=== PATIENT | male | born 1955 | race Caucasian/White ===

== ENCOUNTER 2022-03-29 13:28 | Outpatient (CLI) | payer MEDICARE, BC, SELFPAY ==
[2022-03-29 22:24] LABS: Erythrocyte SedimentationRate* 42 mm/hr (2-15)
== END 2022-03-29 13:29 | disposition home or self-care (01) ==
LOC: NFLDUCREF 13:30
PROVIDERS: PCP Surgery; Visit Provider Family Medicine
DX: M25.422 Effusion, left elbow (principal); M25.432 Effusion, left wrist
CPT/HCPCS: 85651

== ENCOUNTER 2022-04-13 11:06 | Emergency (ER) | payer MEDICARE, BC, SELFPAY ==
[2022-04-13 11:15] VITALS: BP 140/83; PULSE 74; RESP 20; TEMP 36.8; O2SAT 98; BMI 23.6
--- NOTE | 2022-04-13 11:33 | CRLHL7_ITS ---
For Patients: As a result of the Century Cures Act, medical imaging exams and procedure reports are released immediately into your electronic medical record. You may view this report before your referring provider. If you have questions, please contact your health care provider. Indication: Chest pain Comparison: Single view chest January 04, 2021 Technique: PA and lateral views of the chest Findings: There is hyperinflation and chronic interstitial change with mildly increased interstitial markings from comparison which may represent developing edema and/or multifocal infiltrates with residual airspace opacity in the left lung base. Cardiac silhouette is mildly prominent. The bony thorax is grossly intact. Impression: Hyperinflation and chronic interstitial changes with mildly increased interstitial markings likely representing mild pulmonary vascular congestion. Questionable airspace opacification in the left lung base which may represent developing infiltrate versus parenchymal scar. Dictated by Manuel Alvarenga MD @ 04/13/2022 12:36:46 PM (Electronically Signed)
--- NOTE | 2022-04-13 11:34 | ED_ITS ---
HPI - Chest Pain General Chief Complaint: Chest Pain Stated Complaint: Chest pain when breathing in Time Seen by Provider: 04/13/22 11:09 History of Present Illness HPI narrative: This 66-year-old male comes in reporting chest pain that began last evening in became worse today. He states that the pain is relieved when sitting forward and much worse when lying back. He does not report any injury event or strenuous activity. He was at dialysis today and did complete his dialysis run but comes immediately here because of worsening pain. He denies having any nausea, vomiting, lightheadedness, or diaphoresis. He states that the pain is worse when taking a deep breath. 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 Related Data Home Medications Medication Instructions Recorded Confirmed albuterol sulfate 90 mcg/actuation 2 puff inhalation Q6H PRN 03/29/22 03/29/22 aerosol inhaler aspirin 81 mg tablet,delayed 81 mg PO QDAY 03/29/22 03/29/22 release (Adult Low Dose Aspirin) atorvastatin 10 mg tablet 10 mg PO QDAY 03/29/22 03/29/22 azelastine 137 mcg (0.1 %) nasal 1 spray intranasal BID 03/29/22 03/29/22 spray aerosol benzonatate 100 mg capsule 100 mg PO BID PRN 03/29/22 03/29/22 budesonide 0.25 mg/2 mL suspension 0.5 mg inhalation QDAY 03/29/22 03/29/22 for nebulization (Pulmicort) coenzyme Q10 100 mg capsule 100 mg PO QDAY 03/29/22 03/29/22 fluticasone fur. 200 mcg-umeclid 1 inh inhalation QDAY 03/29/22 03/29/22 62.5 mcg-vilant 25 mcg inhalat.powder (Trelegy Ellipta) ipratropium bromide 21 mcg (0.03 2 spray intranasal BID 03/29/22 03/29/22 %) nasal spray lamotrigine 200 mg tablet 200 mg PO BID 03/29/22 03/29/22 (Lamictal) levothyroxine 25 mcg capsule 25 mcg PO QDAY 03/29/22 03/29/22 loratadine 10 mg tablet 10 mg PO QDAY 03/29/22 03/29/22 montelukast 10 mg tablet 10 mg PO QDAY 03/29/22 03/29/22 (Singulair) mycophenolate mofetil 500 mg 500 mg PO Q12H 03/29/22 03/29/22 tablet (CellCept) nifedipine 30 mg tablet,extended 30 mg PO QDAY 03/29/22 03/29/22 release 24 hr (Procardia XL) ondansetron HCl 4 mg tablet 4 mg PO Q8H 03/29/22 03/29/22 prednisone 5 mg tablet 5 mg PO QDAY 03/29/22 03/29/22 sulfamethoxazole 400 1 tab PO BID 03/29/22 03/29/22 mg-trimethoprim 80 mg tablet (Bactrim) tacrolimus 0.5 mg capsule, 1.5 mg PO Q12H 03/29/22 03/29/22 immediate-release (Prograf) torsemide 10 mg tablet 10 mg PO QAM 03/29/22 03/29/22 trazodone 100 mg tablet 100 mg PO QDAY 03/29/22 03/29/22 voriconazole 200 mg tablet (Vfend) 200 mg PO Q12H 03/29/22 03/29/22 Allergies Allergy/AdvReac Type Severity Reaction Status Date / Time cefixime Allergy Intermediate Diarrhea Verified 03/29/22 12:48 quetiapine Allergy Intermediate Edema Verified 03/29/22 12:48 ciprofloxacin Allergy Unknown Verified 03/29/22 12:48 citalopram Allergy Unknown Verified 03/29/22 12:48 Review of Systems Status of ROS Reports: 10 or more systems reviewed and unremarkable except as noted in History and below Narrative Constitutional: No fevers, no weight gain or loss. Eyes: No discharge. No vision changes. HENT: No congestion, no sore throat, no ear pain. Cardiovascular: No palpitations. Chest pain as described above. Respiratory: No shortness of breath, no wheezes, no cough. Gastrointestinal: No abdominal pain, no vomiting, no diarrhea. Genitourinary: No dysuria, no hematuria. Musculoskeletal: Normal range of motion. He is wearing splint on his left wrist. Skin: No rashes, no pruritis. Neurological: No dizziness, weakness, sensory change, speech change. Endo/Heme/Allergies: No bruising or bleeding. No polydipsia. Pysch: no suicidality, no anxiety, no insomnia. All other systems reviewed and are negative. PFSH PFSH Social History Smoking Status: Never smoker How often do you have a drink containing alcohol: never AUDIT-C Alcohol total score: 0 Non-prescribed substance use: denies use Exam Narrative Exam Narrative: Constitutional: Well-developed, well-nourished, no acute distress. HEENT: Normocephalic, atraumatic. Neck: Normal range of motion. Nontender. Supple. Heart: Regular. No murmurs. Normal rate. Intact distal pulses. I do not hear a friction rub. Lungs: Clear to auscultation. No chest discomfort. No wheezes, rhonchi, or rales. Abdomen: Normal bowel sounds. Nontender. No rebound tenderness. Genitalia: Deferred. Back: No midline tenderness. Normal range of motion. Extremities: Normal range of motion. No injury. Skin: Intact. No rash. Warm. No erythema or pallor. Neurologic: No altered sensation. No weakness. Alert and oriented. Psychiatric: No suicidality. No anxiety or depression. No insomnia. Nursing notes and vitals signs are reviewed. Const Vital Signs, click to edit/add: Vital Signs - 24 hr 04/13/22 11:15 04/13/22 12:10 Temperature 98.3 F Pulse Rate [Pulse Oximeter] 74 59 L Respiratory Rate Blood Pressure [Left Upper Arm] 140/83 H Pulse Oximetry 98 97 Oxygen Delivery Method Room Air Room Air Course Vital Signs Vital signs: Initial Vital Signs Temperature 98.3 F 04/13/22 11:15 Temperature Source Temporal Artery Scan 04/13/22 11:15 Pulse Rate 74 04/13/22 11:15 Respiratory Rate 20 04/13/22 11:15 Blood Pressure 140/83 H 04/13/22 11:15 Blood Pressure Mean 102 04/13/22 11:15 Blood Pressure Position Supine 04/13/22 11:15 Pulse Oximetry 98 04/13/22 11:15 Oxygen Delivery Method 04/13/22 11:15 Vital Signs Temperature 98.3 F 04/13/22 11:15 Pulse Rate 74 04/13/22 11:15 Respiratory Rate 20 04/13/22 11:15 Blood Pressure 140/83 H 04/13/22 11:15 Pulse Oximetry 98 04/13/22 11:15 Oxygen Delivery Method 04/13/22 11:15 Temperature 98.3 F 04/13/22 11:15 Pulse Rate 59 L 04/13/22 12:10 Respiratory Rate 22 04/13/22 12:10 Blood Pressure 140/83 H 04/13/22 11:15 Pulse Oximetry 97 04/13/22 12:10 Oxygen Delivery Method 04/13/22 12:10 MDM - Chest Pain MDM Narrative Medical decision making narrative: This patient comes in with anterior chest pain that is reproduced with taking a deep breath and worse with laying back. He gets some relief with sitting forwa rd. He does not report any recent injury event or strenuous activity. He does have a chronic cough and states that he has difficulty clearing his mucus. Given the symptoms he presents with there was suspicion for costal chondritis and pericarditis. An IV was established and he received Dilaudid 0.5 mg which brought great relief to his symptoms. An EKG shows normal sinus rhythm without any signs of pericarditis. There are no diffuse ST or T-wave abnormalities. His chest x-ray appears normal without any acute findings. Other lab results also returned with reassuring findings. This is a dialysis patient so his metabolic panel has some variation but he just return from dialysis in these electrolytes and creatinine have normalized reasonably. I did also use bedside ultrasound to get images of his heart. These show no sign of fluid around the heart. There are no abnormal findings on ultrasound exam of the heart at bedside. The patient is okay to return home. He did receive a prescription for [employer] Lab Data Labs: Lab Results 04/13/22 04/13/22 04/13/22 Range/Units 11:33 11:45 11:45 WBC 10.03 (4.50-11.00) K/uL RBC 3.44 L (4.30-5.90) m/uL Hgb 11.2 L (13.5-17.5) gm/dL Hct 34.5 L (37.0-53.0) % MCV 100 (80-100) fL MCH 33 (26-34) pg MCHC 33 (32-36) gm/dL RDW Coeff of Hilda 13.1 (11.5-15.5) % Plt Count 330 (140-440) K/uL Neut % (Auto) 77.4 H (42.0-72.0) % Lymph % (Auto) 9.1 L (20-44) % [place] % (Auto) 8.9 (0.0-11.0) % Eos % (Auto) 0.8 (0.0-7.0) % Baso % (Auto) 0.1 (0.0-3.0) % Neut # (Auto) 7.80 H (1.7-7.0) K/uL Lymph # (Auto) 0.90 (0.90-2.90) K/uL [place] # (Auto) 0.90 (0.00-0.90) K/UL Eos # (Auto) 0.08 (0.00-0.50) K/uL Baso # (Auto) 0.01 (0.00-0.30) K/uL Abs Immat Gran (auto) 0.37 H (0.00-0.30) K/uL Diff Slide Review Acceptable Review (Acceptable) Sodium 133 L (135-149) mmol/L Potassium 4.7 (3.6-5.1) mmol/L Chloride 98 (96-114) mmol/L Carbon Dioxide 26 (20-32) mmol/L BUN 25 (7-30) mg/dL Creatinine 1.8 H (0.5-1.5) mg/dL Estimated Creat Clear 39.82 Estimated GFR 41 ml/min Glucose 128 H (60-115) mg/dL Calcium 9.3 (8.4-10.6) mg/dL POC Troponin I 0.02 (0.01-0.04) ng/ml ECG Data Attestation: I personally reviewed and interpreted this ECG as follows: Interpretation: Normal sinus rhythm. Rate is 63 beats per minute. There are no specific ST or T-wave abnormalities. Discharge Plan Discharge Clinical Impression: Costal chondritis Patient Disposition: Home, Self-Care Condition: Improved Instructions: Costochondritis (ED) Additional Instructions: Take medications as needed and indicated. Follow up with MD or return if worsening. Prescriptions: No Action albuterol sulfate 90 mcg/actuation HFA aerosol inhaler 2 puff inhalation Q6H PRN aspirin [Adult Low Dose Aspirin] 81 mg tablet,delayed release (DR/EC) 81 mg PO QDAY atorvastatin 10 mg tablet 10 mg PO QDAY azelastine 137 mcg (0.1 %) aerosol,spray 1 spray intranasal BID Rx Instructions: administer into each nostril benzonatate 100 mg capsule 100 mg PO BID PRN budesonide [Pulmicort] 0.25 mg/2 mL suspension for nebulization 0.5 mg inhalation QDAY coenzyme Q10 100 mg capsule 100 mg PO QDAY ipratropium bromide 21 mcg (0.03 %) spray,non-aerosol 2 spray intranasal BID Rx Instructions: administer into each nostril lamotrigine [Lamictal] 200 mg tablet 200 mg PO BID levothyroxine 25 mcg capsule 25 mcg PO QDAY loratadine 10 mg tablet 10 mg PO QDAY montelukast [Singulair] 10 mg tablet 10 mg PO QDAY mycophenolate mofetil [CellCept] 500 mg tablet 500 mg PO Q12H nifedipine [Procardia XL] 30 mg tablet extended release 24hr 30 mg PO QDAY ondansetron HCl 4 mg tablet 4 mg PO Q8H prednisone 5 mg tablet 5 mg PO QDAY tacrolimus [Prograf] 0.5 mg capsule 1.5 mg PO Q12H torsemide 10 mg tablet 10 mg PO QAM trazodone 100 mg tablet 100 mg PO QDAY Trelegy Ellipta 200-62.5-25 mcg blister with device 1 inh inhalation QDAY sulfamethoxazole-trimethoprim [Bactrim] 400-80 mg tablet 1 tab PO BID voriconazole [Vfend] 200 mg tablet 200 mg PO Q12H Rx Instructions: administer on empty stomach, at least 1 hour before or after meal(s) Follow Up/Referrals: Ryan Cole MD [Primary Care Provider] - Stand Alone Forms: [facility] Info Instructions Procedures Ultrasound Cardiac exam #1: Anatomical areas examined: parasternal long and parasternal short Indications: chest pain Exam type: limited transthoracic echocardiogram Impression: negative exam
[2022-04-13] MEDS: HYDROmorphone 0.5 mg/0.5 ml inj IVP (11:50)
[2022-04-13] MEDS: ONDANSETRON 2 MG/ML inj 4 MG IVP (11:50)
--- OUTSIDE RECORDS SUMMARY | 2022-04-13 11:51 | XMS_ITS | Clinical Summary ---
:1955 Author Organization [facility] Address [address] [place] [address] Care Team Providers Name Role Phone Elsewhere, Pcp Primary Care Provider Unavailable Source Comments Patient records contain information from all sites at [facility]. For routine questions regarding patient records, call [phone] during business hours, M-F 8:00 AM - 5:00 PM Central Time. Record requests for emergency care only can be directed to [phone] at any time.[facility] Allergies Active Allergy Reactions Severity Noted Date Comments Cefixime Diarrhea Medium 09/29/2015 Ciprofloxacin Other (see comments) Medium 07/14/2013 Tendon pain, Liver transplant Citalopram Other (see comments) High 07/14/2013 [place], Liver transplant Erythromycin Other (see comments) Low 11/04/2016 Erythromycin Base Other (see comments) Medium 05/22/2015 Du e to medications, interacts with transplant medi cations Ibuprofen Other (see comments) High 11/04/2016 PT SHOU LD NOT HAVE THIS MED R/T LIVER T RANSPLANT Olanzapine Other (see comments) High 05/22/2015 Joint p ain Quetiapine Edema, Other (see High 05/22/2015 Muscle nabil n and swelling comments) Medications Medication Sig Dispensed Refills Start Date End Date Status acetaminophen Take 1 tablet by 0 06/18/2013 Active (TYLENOL) 500 mg mouth every 6 tablet (six) hours as needed for fever. Pain. No more than 2000 mg per day. aspirin 81 mg Chew 81 mg daily. 0 09/03/2017 Active chewable tablet coenzyme Q10 (CO Take 1 capsule by 0 07/07/2017 Active Q-10) 200 mg capsule mouth daily. amoxicillin (AMOXIL) Take 4 capsules by 0 02/24/2018 Active 500 mg capsule mouth as directed. Prior to dental procedures montelukast Take 10 mg by 0 Acti ve (SINGULAIR) 10 mg mouth at bedtime. tablet loratadine Take 10 mg by 0 Activ e (CLARITIN) 10 mg mouth at bedtime. tablet ondansetron (ZOFRAN) Take 1 tablet (4 20 tablet 0 11/29/2020 Active 4 mg tablet mg total) by mouth every 8 (eight) hours as needed for nausea or vomiting. darbepoetin Inject 0.3 mL (60 1 Syringe 6 01/09/2021 Active michelle-polysorbate mcg total) under (Aranesp, in the skin once for polysorbate,) 60 1 dose. Hold if mcg/0.3 mL injection Hgb greater than 11 g/dL. Give once every 28 days. atorvastatin TAKE 1 TABLET(10 90 tablet 3 03/05/2021 Active (LIPITOR) 10 mg MG) BY MOUTH DAILY tablet benzonatate Take 100 mg by 0 01/04/2021 Ac tive (TESSALON PERLES) mouth. 100 mg capsule multivitamin renal Take 1 tablet by 30 tablet 11 05/26/202109/2021 Active failure (DIALYVITE) mouth daily with 100-1 mg tablet dinner. albuterol 90 Inhale 2 puffs 90 g 11 06/21/2021 A ctive mcg/actuation every 6 (six) inhaler hours as needed for wheezing. traZODone (DESYREL) Take 1 tablet (100 90 tablet 3 08/27/2021 08/27/2022 Active 100 mg tablet mg total) by mouth at bedtime as needed for sleep. azelastine HCl Administer 1 mg 0 Active (AZELASTINE NASAL) into nostril(s) 2 (two) times a day. Alternating sides, use with sinus rinse 2 times daily. fluticasone Administer 2 16 g 12 10/17/2021 Acti ve propionate (FLONASE) sprays into each 50 mcg/actuation nostril daily. nasal spray predniSONE Take 1 tablet (5 30 tablet 0 11/24/2021 A ctive (DELTASONE) 5 mg mg total) by mouth tablet daily. lamoTRIgine TAKE 1 TABLET BY 200 tablet 3 10/22/2021 Active (LaMICtaL) 200 mg MOUTH TWICE DAILY tablet Additional Information Patient taking differently: 200 mg 2 times daily, Reported on 12/05/2021 ketoconazole (NIZORAL) 2 % Apply 1 application 120 mL 3 Active shampoo topically 3 (three) times a week. Apply to damp skin, lather, leave on 5-10 minutes, and rinse levothyroxine (SYNTHROID, TAKE 1 TABLET(25 MCG) BY 90 tablet 3 11/27/2021 Active LEVOTHROID) 25 mcg MOUTH EVERY MORNING tabletIndications: BEFORE BREAKFAST Transplant Liver (HCC) Additional Information Patient taking differently: 25 mcg oral Daily before breakfast, Reported on 12/05/2021 ofloxacin (FLOXIN) 0.3 % Administer 5 drops 10 mL 3 2021 Active otic solutionIndications: into the right ear Chondritis Pinna Right 4 (four) times a day. isavuconazonium (CRESEMBA) Take 2 capsules 180 capsule 0 01/21 Active 186 mg capsule (372 mg total) by 022 mouth daily. sulfamethoxazole-trimethopri Take 1 tablet by 90 tablet 0 06/2021 Active m (BACTRIM,SEPTRA) 400-80 mg mouth daily. Take 022 per tablet after dialysis on dialysis days. Additional Information Patient not taking. Reported on 02/07/2022 torsemide (DEMADEX) Take 1 tablet 90 tablet 3 01/31/2022 Active 100 mg tablet (100 mg total) by mouth daily. ipratropium INHALE 2 30 mL 11 02/05/2022 Active (ATROVENT) 21 mcg SPRAYS IN EACH (0.03 %) nasal spray NOSTRIL TWICE DAILY, UP TO FIVE TIMES DAILY NEEDED NIFEdipine XL Take 20 mg by 0 10/06/2021 A ctive (PROCARDIA XL) 30 mg mouth daily. 24 hr tablet Renate-Celestine Rx 1-60-300 Take 1 tablet 0 12/11/2021 Active mg-mg-mcg tablet by mouth daily with dinner. voriconazole (VFEND) Take 200 mg by 0 Active 200 mg tablet mouth 2 (two) times a day. mycophenolate Take 2 360 capsule 3 02/15/2022 Act davin (CELLCEPT) 250 mg capsules (500 capsuleIndications: mg total) by Transplant Liver mouth 2 (two) (HCC), Infection times a day. Cytomegalovirus Do not break, (HCC), Medication cut, or open Therapy Steel Post Installer Not capsules. Anticoagulant Trelegy Ellipta INHALE 1 PUFF 60 each 3 03/04/2022 Active 200-62.5-25 mcg BY MOUTH DAILY inhaler budesonide Add 1 respule 360 mL 3 03/04/2022 Acti ve (PULMICORT) 0.5 mg/2 to 8 ounces mL nebulizer solution saline and irrigate each side of nose twice daily as directed. tacrolimus (PROGRAF) Take 2 360 capsule 3 04/02/2022 Active 0.5 mg capsules (1 mg capsuleIndications: total) by Transplant Liver mouth every 12 (HCC), Medication (twelve) Therapy Alf Not hours. Anticoagulant tacrolimus (PROGRAF) Take 1 capsule 90 capsule 3 12/27/2021/ Discontinued 0.5 mg (0.5 mg total) 2021 (Reor cinthia) capsuleIndications: by mouth Transplant Liver daily. (HCC), Medication Therapy Steel Post Installer Not Anticoagulant valGANciclovir Take 1 tablet 45 tablet 0 12/27/202103/27/ (VALCYTE) 450 mg (450 mg total) 2021 tabletIndications: by mouth every Transplant Liver other day. ([facility]), Medication take every 48 Therapy Steel Post Installer Not hours after Anticoagulant, dialysis Infection Cytomegalovirus (HCC) tacrolimus (PROGRAF) Take 1 capsule 180 capsule 3 03/15/2022 1 / Discontinued 0.5 mg (0.5 mg total) 2021 (Reor cinthia) capsuleIndications: by mouth every Transplant Liver 12 (twelve) (HCC), Medication hours. Therapy Alf Not Anticoagulant amoxicillin-pot Take 1 tablet 20 tablet 0 03/22/202204/01/ clavulanate by mouth 2 2021 (AUGMENTIN) 875-125 (two) times a mg per tablet day for 10 days. Active Problems Problem Noted Date Pneumonia Aspergillus 01/21/2022 Infection Respiratory Lower 12/10/2021 Infection Cytomegalovirus 12/10/2021 Pneumonia 10/12/2021 Personal History Of Infectious And Parasitic Disease ( COVID-19) 10/12/2021 Overview: 2020 Hyperglycemia 10/12/2021 Macrocytosis 10/12/2021 Lymphopenia 10/12/2021 Immunodeficiency Due To Drugs 07/12/2021 Colitis Cytomegalovirus 06/12/2021 Acute Bronchiolitis Due To Other Specified Organisms 1 08/13/2020 Medication Therapy Alf Not Anticoagulant 021 Chronic Failure Renal End Stage Renal Disease Dialysis Dependent 06/01/2021 Diarrhea 05/25/2021 Failure Renal 05/24/2021 Anemia 11/13/2020 Shortness Of Breath 11/13/2020 Elevated D-Dimer Uncertain Significance 11/13/2020 Hyponatremia 11/13/2020 Acute Bronchitis Due To COVID-19 11/12/2020 COVID-19 Infection 10/31/2020 Drip Post Nasal 01/31/2020 Abnormal Computed Tomography Chest 01/31/2020 Rhinosinusitis Chronic 01/31/2020 Pneumonitis Due To Inhalation Of Food And Vomit 2019 Chronic Cough 12/30/2019 Complaint Memory 02/16/2018 Spells Neurological 02/16/2018 Chronic Kidney Disease Stage 4 Glomerular Filtration R ate 15-29 09/05/2017 Chronic Kidney Disease NOS 01/02/2017 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 Chronic Kidney Disease Stage 3 Glomerular Filtration R ate 30 To 59 05/30/2015 Cirrhosis Cryptogenic 05/22/2015 Overview: Cirrhosis Cryptogenic Bipolar I Depressed Partial Remission 10/01/2013 Bipolar I Depressed Full Remission 08/11/2013 Bipolar I Disorder 07/07/2013 Hypertension And Chronic Kidney Disease Stage 5 2010 Immunodeficiency 07/31/2009 Transplant Liver 07/16/2004 Pretransplant Recipient Evaluation Exam Resolved Problems Problem Noted Date Resolved Date Chronic Obstructive Pulmonary Disease Without Exacerbation 0 10/12/2021 10/12/2021 Encounters Date Type Specialty Care Team Description Clinical Transplant Wilder, Labs Only 2 Communication Lilia Azevedo R.N., C.C.T.C. Hospital Encounter Laboratory Medicine Scott Granger ransplant Liver (HCC); 2 J PMaryanne. Medication Ther apy Alf Not Anticoagulant Clinical Transplant Sherly, Yolie Labs Only 2 Communication R, R.N. [facility]); 2 J, Miri.Marie. Medication Ther apy Steel Post Installer Not Anticoagulant Ancillary 2 Procedure Office Visit Otorhinolaryngology Jaxson Churchill s Recurrent (Primary Dx); 2 D, P.A.KelseyC., Chronic Cough; M.S., M.P.H. Drip Post Nasal ; Headache Daily Orders Only Otorhinolaryngology Óscar Ramirez 2 RSada Clinical Admitting/Central Pre-visit Intake 2 Communication Scheduling Clinical Transplant Wilder, Txp Tacrolimu s 2 Communication Lilia Azevedo R.N., Adjustment Pr otocol C.C.T.C. - Liver [facility]); 2 J, YanelyC. Medication Ther apy Alf Not Anticoagulant [facility] Testing 2 Communication Warner Ayoub M.D. Orders Orders Only Otorhinolaryngology Óscar Ramirez 2 Sada Millard Clinical Otorhinolaryngology Toro Pena Med Ref ill 2 Communication Sada Galvan (Azelastine) Refill Transplant Anastasia Will Med Refill 2 L, R.N., C.C.T.C. Clinical Orthopedic Surgery Prescheduling, 2 Communication Provider Clinical Orthopedic Surgery Prescheduling, 2 Communication Provider Hospital Encounter Radiology Trung Plasencia Pneumonia Fungal; 2 J, PMaryanne., Chronic Obstruc tive Pulmonary Disease Without Exacerbation ([facility]); M.S. Lung Interstiti al Disease ([facility]) Hospital Encounter Laboratory [facility]); 2 J, P.Murtaza.KelseyC. Medication Ther apy Steel Post Installer Not Anticoagulant Orders Only Transplant Trung Plasencia Pneumonia Funga l (Primary Dx); 2 Jennifer Stern., Chronic Obstruc tive Pulmonary Disease Without Exacerbation (HCC); M.Liam Lung Interstiti al Disease (HCC) Orders Only Otorhinolaryngology Jazmin, 2 Leonid Walker M.D. Clinical Otorhinolaryngology [place]ena Med Ref ill 2 Communication Sada Galvan (budesonide) Refill Pulmonary Medicine Odeyemi, Med Refil l 2 Simba GauthierB.S. Clinical Transplant [facility] Labs Only 2 Communication R, R.N. [facility] 2 Jennifer Stern. Medication Ther apy Alf Not Anticoagulant Clinical Transplant [facility] Labs Only 2 Communication R, R.N. Hospital [facility] 2 Jennifer Stern. Medication Ther apy Steel Post Installer Not Anticoagulant Clinical Pulmonary Medicine Odeyemi, Pulmonary Clearance 2 Communication Simba GauthierB.S. Refill Transplant [facility] Med Refill 2 R, R.N. Hospital [facility] 2 Jennifer Stern. Medication Ther apy Alf Not Anticoagulant Clinical Transplant [facility] Labs Only 2 Communication R, R.N. Office Visit Pulmonary Medicine Odeyemi, Transplan t Liver (HCC); 2 Connie Toure, Medication Ther apy Steel Post Installer Not Anticoagulant; M.B.B.S. Screening [place] Skin Cancer; Dialysis Depend ent (HCC); Screening [place] Prostate Cancer; Nodules Pulmona ry Multiple Hospital [facility] 2 Jennifer Stern. Medication Ther apy Alf Not Anticoagulant Lab General Surgery Odeyemi, Preprocedura l Lab 2 Connie Toure, Exam M.B.B.S. Refill Otorhinolaryngology Cisco Montague Refi ll 2 Patricia Gordon M.D. Clinical Transplant Anastasia Will Tacrolimus 2 Communication LLynn., Adjustment Pro tocol C.C.T.C. Liver Clinical Transplant Radha Dick, Waitlist revi ew 2 Communication Patricia Azevedo, meeting R.N., C.C.T.C. Orders Only Dialysis Elissa Wilcox P, 2 MULTIFOCAL BUTTON GRINDER, C.N.P. Hospital Encounter Laboratory Medicine Scott Granger ransplant Liver (HCC); 2 J, P.A.-C. Medication Ther apy Alf Not Anticoagulant Orders Only Critical Care Medicine Odmarge, Chron ic Obstructive 2 Connie Toure, Pulmonary Disea se M.B.B.S. Without Exacerb ation (HCC) (Primary Dx) Clinical Transplant Yolie Dubois 2 Communication R, R.N. Clinical Transplant Yolie Dubois 2 Communication R, R.N. Hospital Encounter Laboratory Medicine Scott Granger ransplant Liver (HCC); 2 J, P.A.-C. Medication Ther apy Steel Post Installer Not Anticoagulant Office Visit Transplant Trung Plasencia Pneumonia Asper gillus (HCC) (Primary Dx); 2 J, P.A.-C., Infection Cytom egalovirus (HCC); M.S. Abnormal Comput ed Tomography Chest; Transplant Live r (HCC); Medication Ther apy Alf Not Anticoagulant; Immunodeficienc y Due To Drugs (HCC) Immunization Preventive Medicine Nik Minor Immunode ficiency (HCC); 2 Angela Galvan., Ph.D. Transplant Li gerry (HCC) Hospital Encounter Radiology Trung Plasencia Transplan t Liver (HCC); 2 J, P.A.-C., Medication Ther apy Steel Post Installer Not Anticoagulant; M.S. Pneumonia Asper gillus (HCC) Lab Laboratory Medicine Trung Plasencia Bronchie ctasis ([facility]) 2 Edmundo Stern, M.S. Orders Only Transplant Trung Plasencia 2 Edmundo Stern, M.S. Orders Only Transplant Trung Plasencia 2 J, Edmundo, M.S. Clinical Transplant Yolie Dubois Labs Only 2 Communication R, R.N. Orders Only Transplant Trung Plasencia 2 Leena, Edmundo, M.S. Hospital Encounter Laboratory Medicine [facility] Gr[facility] ransplant Liver ([facility]); 2 Jennifer Stern. Medication Ther apy Alf Not Anticoagulant Nurse Only Dermatology Varun Saldivar 2 Angela Camejo., M.S. Mary Jane Cain R.NDemetrius Ancillary 2 Procedure Orders Only Dermatology Proffer, Chondritis Pinn a 2 Right Allen (Primary Dx) Sada, M.S. Clinical [facility], 2 Communication Maricel Azevedo R.N. Clinical Transplant Anastasia Will Labs Only (12/22 ) 2 Communication L R.Anais, C.C.T.C. from Last 3 Months Immunizations Name Administration Dates Next Due HepA Adult 12/25/2012 HepA, Unspecified 12/07/1998, 06/08/1998 HepB, Unspecified 12/07/1998, 07/06/1998, 06/22/1998, 06/08/1998 Influenza high dose QV(65 years or 03/05/2021, 02/11/2020 older) (PF) Influenza, Injectable, Quadrivalent 03/15/2019 Influenza, Unspecified 03/05/2021 PCV13 12/25/2012, 06/23/2009 PPSV23 04/30/2005, 08/07/1995 Pneumococcal, Unspecified 06/23/2014, 12/25/2012, 06/23/2009 , 04/30/2005, 02/05/1996 RZV (SHINGRIX) 01/06/2018, 10/03/2017 SARS-COV-2 (COVID-19) - MODERNA 01/21/2022, 07/31/2021, 01/22, 08/06/2020 Td, (Adult) Unspecified 05/11/2003 Tdap 02/19/2012 influenza vaccine quad 04/22/2018, 05/16/2009 (FLUZONE/FLUARIX) (6 months and older)(PF) Family History Medical History Relation Name Comments Coronary artery disease Father Father Heart attack Father Father Heart disease Father Father Prostate cancer Father Father Skin cancer Father Father Coronary artery disease Mother Mother Heart attack Mother Mother Heart disease Mother Mother Hypertension Mother Mother Relation Name Status Comments Father Father Mother Mother Social History Tobacco Use Types Packs/Day Years Used Date Smoking Tobacco: Never Smokeless Tobacco: Never Tobacco Cessation: Counseling Given: Not Answered Alcohol Use Standard Drinks/Week Comments No 0 (1 standard drink = 0.6 oz pure alcoho l) Alcohol Habits Answer Date Recorded How often do you have a drink containing alcohol? Never 12/15/2021 How many drinks containing alcohol do you have on a typical Not asked day when you are drinking? How often do you have six or more drinks on one occasion? Ne gerry 02/25/2019 Social Isolation Answer Date Recorded In a typical week, how many times do you More than three scott es a week 12/15/2021 talk on the phone with family, friends, or neighbors? How often do you get together with friends Twice a week 12/15/2021 or relatives? How often do you attend religious or More than 4 times per year 12/15/2021 hinduism services? Do you belong to any clubs or No 12/15/2021 organizations such as religious groups, unions, fraternal or athletic groups, or school groups? How often do you attend meetings of the Never 12/15/2021 clubs or organizations you belong to? Are you now , , , Never 12/15/2021 , never or living with a partner? Physical Activity Answer Date Recorded On average, how many days per week do you engage in moderate to 2 days 12/15/2021 strenuous exercise (like walking fast, running, jogging, dancing, swimming, biking, or other activities that cause a light or heavy sweat)? On average, how many minutes do you engage in exercise at th is 20 min 12/15/2021 level? Stress Answer Date Recorded Do you feel stress - tense, restless, nervous, or Only a lit tle 12/15/2021 anxious, or unable to sleep at night because your mind is troubled all the time - these days? Financial Resource Strain Answer Date Recorded How hard is it for you to pay for the very basics like Not h lydia at all 12/15/2021 food, housing, medical care, and heating? Intimate Partner Violence Answer Date Recorded Within the last year, have you been afraid of your partner o r No 12/15/2021 ex-partner? Within the last year, have you been humiliated or emotionall y No 12/15/2021 abused in other ways by your partner or ex-partner? Within the last year, have you been kicked, hit, slapped, or No 12/15/2021 otherwise physically hurt by your partner or ex-partner? Within the last year, have you been raped or forced to have any No 12/15/2021 kind of sexual activity by your partner or ex-partner? Food Insecurity Answer Date Recorded Within the past 12 months, you worried that your food would Never true 12/15/2021 run out before you got money to buy more. Within the past 12 months, the food you bought just didn't N ever true 12/15/2021 last and you didn't have money to get more. Transportation Needs Answer Date Recorded In the past 12 months, has lack of transportation kept you f rom No 12/15/2021 medical appointments or from getting medications? In the past 12 months, has lack of transportation kept you f rom No 12/15/2021 meetings, work, or getting things needed for daily living? Housing Stability Answer Date Recorded In the last 12 months, was there a time when you were not ab le No 12/15/2021 to pay the mortgage or rent on time? In the last 12 months, how many places have you lived? 1 12/15/2021 In the last 12 months, was there a time when you did not hav e a No 12/15/[address] sleep or slept in a care home (including now)? Education Answer Date Recorded What is the highest level of school Associate degree: jennifer eric, 12/14/2021 you have completed or the highest technical, or vocational [facility] [employer] [facility] degree you have received? 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 [address] [place] [phone] 04/25/2022 Office Visit Otorhinolaryngology Dex Matta APRN, C.N.P., M.S.N. [address] [place] [phone] 05/08/2022 Appointment Laboratory Medicine Scott Granger, Evan.A.-C. [address] [place] [phone] 05/08/2022 Clinical Admitting/Central Communication Scheduling 05/10/2022 Appointment Radiology Jeremie Rose M.D. [address] [place] [phone] 05/10/2022 Comprehensive Visit Orthopedic Surgery Warner Graves M.D. [address] [place] [phone] 05/22/2022 Appointment Laboratory Medicine Scott Granger P.A.-C. [address] [place] [phone] 06/05/2022 Appointment Laboratory Medicine Scott Granger P.A.-C. [address] [place] [phone] 06/19/2022 Appointment Laboratory Medicine Scott Granger P.A.-C. [address] [place] [phone] 07/03/2022 Appointment Laboratory Medicine Scott Granger P.A.-C. [address] [place] [phone] 07/17/2022 Appointment Laboratory Medicine Scott Granger P.A.-C. [address] [place] [phone] 07/31/2022 Appointment Laboratory Medicine Scott Granger P.A.-C. [address] [place] [phone] 08/14/2022 Appointment Laboratory Medicine Scott Granger P.A.-C. [address] [place] [phone] 08/28/2022 Appointment Laboratory Medicine Scott Granger P.A.-C. [address] [place] [phone] Health Maintenance Due Date Last Done Comments CT Colonography 1955 Cologuard 1955 Hepatitis B Vaccines (3 of 04/08/1999 12/07/1998, 9, 3 - Risk 3-dose series) 06/22/1998, Additional history exists Abdominal Ultrasound 02/21/2018 08/21/2017, 08/19/2016, 05/30/2015, Additional history exists Pneumococcal vaccine (65+ 09/14/2019 06/23/2014, 12/25/2012 , years) (4 - PPSV23 if 12/25/2012, Additional available, else PCV20) history exists Depression Screening 06/23/2021 (Annual PHQ-2) DTaP,Tdap,and Td Vaccines 02/18/2022 02/19/2012, 05/11/2003 (2 - Td or Tdap) COVID-19 Vaccine (6 - 03/18/2022 01/21/2022, 07/31/2021, Booster for Moderna series) 02/09/2021, Addition al history exists Tixagevimab-cilgavimab 06/11/2022 12/10/2021 (Evusheld) Injection Thyroid Stimulating Hormone 12/03/2022 12/03/2021, 05/24/20 21, (TSH) test for thyroid 11/27/2020, Additional function history exists Office Visit for Blood 02/07/2023 02/07/2022 Pressure Check / Re-check Creatinine Level 04/10/2023 04/10/2022, 03/27/2022, 03/20/2022, Additional history exists Fasting Glucose for 04/10/2023 04/10/2022, 03/27/2022, Diabetes Screening 03/20/2022, Additional history exists Potassium Level 04/10/2023 04/10/2022, 03/27/2022, 03/20/2022, Additional history exists Sodium Level 04/10/2023 04/10/2022, 03/27/2022, 03/20/2022, Additional history exists Colonoscopy 07/10/2026 07/10/2021, 07/10/2021, 06/06/2021, Additional history exists Colorectal Cancer 07/10/2026 Surveillance Lipid (Cholesterol) 12/03/2026 12/03/2021, 04/26/2021, Screening 11/27/2020, Additional history exists Hepatitis A Vaccines Completed 12/25/2012, 12/07/1998, 06/08/1998 Zoster Vaccines Completed 01/06/2018, 10/03/2017 Fall Risk Screen (Annual) Completed 12/10/2021 Influenza Vaccine Completed 04/08/2022, 03/05/2021, 03/05/2021, Additional history exists HPV Vaccines Aged Out No longer eligib le based on patient 's age to complete this topic Medical Devices Implanted Type Area Plastic Installer Device Shelf Model / Identifier Expiration Serial / Date Lot Stent Intro Fusion [place] 10 Fr - Banerjee [id number] Biliary [employer] Implanted: Qty: 1 on 09/24/2011 Stent Inc. Description: Device Plastic Installer - [employer]. Device Status Text - [id number]. Stent Intro Fusion [place] 10 Fr - Banerjee [id number] Biliary Stent [employer] Implanted: Qty: 1 on 12/12/2011 Description: Device Plastic Installer - [employer]. Device Status Text - [id number]. Stent Biliary 10 X 7 Cotton-[place] - Banerjee [id number] Biliary Stent [employer] Implanted: Qty: 1 on 05/26/2013 Description: Device Plastic Installer - [employer]. Device Status Text - [id number]. Conversions - Default Historical Implant Device Elbow Implant Implanted: 11/21/2016 (Quantity not on file) Description: Device Status Text - Elbow Imp. left elbow. Stent Pancreatic Johlin Wedge 8.5-22 - Banerjee [id number] Pancreatic St ent [employer] Implanted: Qty: 1 on 11/06/2011 Description: Device Plastic Installer - [employer]. Device Status Text - [id number]. Stent Pancreatic Johlin Wedge 10-22 - Banerjee [id number] Pancreatic Jorge L nt [employer] Implanted: Qty: 1 on 12/12/2011 Description: Device Plastic Installer - [employer] Medical. Device Status Text - [id number]. Stent Pancreatic Johlin Wedge 10-22 - Banerjee [id number] Pancreatic Jorge L nt [employer] Implanted: Qty: 2 on 04/08/2013 Description: Device Plastic Installer - [employer] Medical. Device Status Text - [id number]. Stent Pancreatic Johlin Wedge 10-22 - Banerjee [id number] Pancreatic Jorge L nt [employer] 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 Device Status Text - [id number]. 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 Device Status Text - [id number]. 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 Body Location - Other. n/a. Device Status Text - [id number]. Procedures Procedure Name Priority Date/Time Associated Comments Diagnosis CMV DNA DETECT/QUANT, P Routine 04/10/2022 Transplant Liver Results for 8:21 AM CDT (HCC) this Medication Therapy procedure are Steel Post Installer Not in the Anticoagulant results section. TACROLIMUS LEVEL, B Routine 04/10/2022 Transplant Liver Resu lts for 8:20 AM CDT (HCC) this Medication Therapy procedure are Alf Not in the Anticoagulant results section. GLUCOSE, FASTING, S/P Routine 04/10/2022 Transplant Liver Re sults for 8:20 AM CDT (HCC) this Medication Therapy procedure are Steel Post Installer Not in the Anticoagulant results section. COMPREHENSIVE METABOLIC Routine 04/10/2022 Transplant Liver Results for PANEL, S/P 8:20 AM CDT (HCC) this Medication Therapy procedure are Alf Not in the Anticoagulant results section. CBC WITHOUT Routine 04/10/2022 Transplant Liver Results for DIFFERENTIAL, B 8:20 AM CDT (HCC) this Medication Therapy procedure are Alf Not in the Anticoagulant results section. TACROLIMUS LEVEL, B Routine 03/27/2022 Transplant Liver Resu lts for 8:12 AM CDT (HCC) this Medication Therapy procedure are Steel Post Installer Not in the Anticoagulant results section. GLUCOSE, FASTING, S/P Routine 03/27/2022 Transplant Liver Re sults for 8:12 AM CDT (HCC) this Medication Therapy procedure are Steel Post Installer Not in the Anticoagulant results section. COMPREHENSIVE METABOLIC Routine 03/27/2022 Transplant Liver Results for PANEL, S/P 8:12 AM CDT (HCC) this Medication Therapy procedure are Alf Not in the Anticoagulant results section. CBC WITHOUT Routine 03/27/2022 Transplant Liver Results for DIFFERENTIAL, B 8:12 AM CDT (HCC) this Medication Therapy procedure are Alf Not in the Anticoagulant results section. CMV DNA DETECT/QUANT, P Routine 03/27/2022 Transplant Liver Results for 8:12 AM CDT (HCC) this Medication Therapy procedure are Steel Post Installer Not in the Anticoagulant results section. OTORHINOLARYNGOLOGY Routine 03/22/2022 Results for IMAGE EXAM 8:15 AM CDT this procedure are in the results section. BACTERIAL CULTURE, Routine 03/22/2022 Sinusitis Recurrent Re sults for AEROBIC + SUSC 8:13 AM CDT this procedure are in the results section. GLUCOSE, FASTING, S/P Routine 03/20/2022 Transplant Liver Re sults for 8:13 AM CDT (HCC) this Medication Therapy procedure are Steel Post Installer Not in the Anticoagulant results section. COMPREHENSIVE METABOLIC Routine 03/20/2022 Transplant Liver Results for PANEL, S/P 8:13 AM CDT (HCC) this Medication Therapy procedure are Alf Not in the Anticoagulant results section. CBC WITHOUT Routine 03/20/2022 Transplant Liver Results for DIFFERENTIAL, B 8:13 AM CDT (HCC) this Medication Therapy procedure are Alf Not in the Anticoagulant results section. TACROLIMUS LEVEL, B Routine 03/20/2022 Transplant Liver Resu lts for 8:12 AM CDT (HCC) this Medication Therapy procedure are Steel Post Installer Not in the Anticoagulant results section. CMV DNA DETECT/QUANT, P Routine 03/20/2022 Transplant Liver Results for 8:12 AM CDT (HCC) this Medication Therapy procedure are Alf Not in the Anticoagulant results section. CT CHEST WITHOUT IV RAD - Routine 03/13/2022 Pneumonia Fu ngal Results for CONTRAST (most 2:29 PM CDT Chronic Obstructive this inpatients and Pulmonary Disease procedur e are all Without in the outpatients) Exacerbation (HC C) results Lung Interstitial section. Disease (HCC) TACROLIMUS LEVEL, B Routine 03/13/2022 Transplant Liver Resu lts for 8:00 AM CDT (HCC) this Medication Therapy procedure are Steel Post Installer Not in the Anticoagulant results section. GLUCOSE, FASTING, S/P Routine 03/13/2022 Transplant Liver Re sults for 8:00 AM CDT (HCC) this Medication Therapy procedure are Steel Post Installer Not in the Anticoagulant results section. COMPREHENSIVE METABOLIC Routine 03/13/2022 Transplant Liver Results for PANEL, S/P 8:00 AM CDT (HCC) this Medication Therapy procedure are Alf Not in the Anticoagulant results section. CBC WITHOUT Routine 03/13/2022 Transplant Liver Results for DIFFERENTIAL, B 8:00 AM CDT (HCC) this Medication Therapy procedure are Alf Not in the Anticoagulant results section. CMV DNA DETECT/QUANT, P Routine 03/13/2022 Transplant Liver Results for 8:00 AM CDT (HCC) this Medication Therapy procedure are Steel Post Installer Not in the Anticoagulant results section. GLUCOSE, FASTING, S/P Routine 02/27/2022 Transplant Liver Re sults for 8:08 AM CDT (HCC) this Medication Therapy procedure are Alf Not in the Anticoagulant results section. TACROLIMUS LEVEL, B Routine 02/27/2022 Transplant Liver Resu lts for 8:07 AM CDT (HCC) this Medication Therapy procedure are Steel Post Installer Not in the Anticoagulant results section. COMPREHENSIVE METABOLIC Routine 02/27/2022 Transplant Liver Results for PANEL, S/P 8:07 AM CDT (HCC) this Medication Therapy procedure are Steel Post Installer Not in the Anticoagulant results section. CBC WITHOUT Routine 02/27/2022 Transplant Liver Results for DIFFERENTIAL, B 8:07 AM CDT (HCC) this Medication Therapy procedure are Steel Post Installer Not in the Anticoagulant results section. CMV DNA DETECT/QUANT, P Routine 02/27/2022 Transplant Liver Results for 8:07 AM CDT (HCC) this Medication Therapy procedure are Alf Not in the Anticoagulant results section. TACROLIMUS LEVEL, B Routine 02/20/2022 Transplant Liver Resu lts for 8:13 AM CDT (HCC) this Medication Therapy procedure are Alf Not in the Anticoagulant results section. GLUCOSE, FASTING, S/P Routine 02/20/2022 Transplant Liver Re sults for 8:13 AM CDT (HCC) this Medication Therapy procedure are Alf Not in the Anticoagulant results section. COMPREHENSIVE METABOLIC Routine 02/20/2022 Transplant Liver Results for PANEL, S/P 8:13 AM CDT (HCC) this Medication Therapy procedure are Alf Not in the Anticoagulant results section. CBC WITHOUT Routine 02/20/2022 Transplant Liver Results for DIFFERENTIAL, B 8:13 AM CDT (HCC) this Medication Therapy procedure are Alf Not in the Anticoagulant results section. CMV DNA DETECT/QUANT, P Routine 02/20/2022 Transplant Liver Results for 8:13 AM CDT (HCC) this Medication Therapy procedure are Steel Post Installer Not in the Anticoagulant results section. TACROLIMUS LEVEL, B Routine 02/13/2022 Transplant Liver Resu lts for 7:47 AM CDT (HCC) this Medication Therapy procedure are Alf Not in the Anticoagulant results section. GLUCOSE, FASTING, S/P Routine 02/13/2022 Transplant Liver Re sults for 7:47 AM CDT (HCC) this Medication Therapy procedure are Steel Post Installer Not in the Anticoagulant results section. COMPREHENSIVE METABOLIC Routine 02/13/2022 Transplant Liver Results for PANEL, S/P 7:47 AM CDT (HCC) this Medication Therapy procedure are Alf Not in the Anticoagulant results section. CBC WITHOUT Routine 02/13/2022 Transplant Liver Results for DIFFERENTIAL, B 7:47 AM CDT (HCC) this Medication Therapy procedure are Steel Post Installer Not in the Anticoagulant results section. CMV DNA DETECT/QUANT, P Routine 02/13/2022 Transplant Liver Results for 7:46 AM CDT (HCC) this Medication Therapy procedure are Alf Not in the Anticoagulant results section. PULMONARY FUNCTION TESTS Routine 02/07/2022 Chronic Obstruct davin Results for 1:23 PM CDT Pulmonary Disease this Without procedure are Exacerbation (HCC) in the results section. TACROLIMUS LEVEL, B Routine 02/06/2022 Transplant Liver Resu lts for 8:06 AM CDT (HCC) this Medication Therapy procedure are Steel Post Installer Not in the Anticoagulant results section. GLUCOSE, FASTING, S/P Routine 02/06/2022 Transplant Liver Re sults for 8:06 AM CDT (HCC) this Medication Therapy procedure are Steel Post Installer Not in the Anticoagulant results section. COMPREHENSIVE METABOLIC Routine 02/06/2022 Transplant Liver Results for PANEL, S/P 8:06 AM CDT (HCC) this Medication Therapy procedure are Alf Not in the Anticoagulant results section. CBC WITHOUT Routine 02/06/2022 Transplant Liver Results for DIFFERENTIAL, B 8:06 AM CDT (HCC) this Medication Therapy procedure are Alf Not in the Anticoagulant results section. CMV DNA DETECT/QUANT, P Routine 02/06/2022 Transplant Liver Results for 8:06 AM CDT (HCC) this Medication Therapy procedure are Steel Post Installer Not in the Anticoagulant results section. SARS CORONAVIRUS-2 RNA, Routine 02/04/2022 Preprocedural Lab Results for V 4:38 PM CDT Exam this procedure are in the results section. TACROLIMUS LEVEL, B Routine 01/30/2022 Transplant Liver Resu lts for 8:04 AM CDT (HCC) this Medication Therapy procedure are Alf Not in the Anticoagulant results section. GLUCOSE, FASTING, S/P Routine 01/30/2022 Transplant Liver Re sults for 8:04 AM CDT (HCC) this Medication Therapy procedure are Steel Post Installer Not in the Anticoagulant results section. COMPREHENSIVE METABOLIC Routine 01/30/2022 Transplant Liver Results for PANEL, S/P 8:04 AM CDT (HCC) this Medication Therapy procedure are Alf Not in the Anticoagulant results section. CBC WITHOUT Routine 01/30/2022 Transplant Liver Results for DIFFERENTIAL, B 8:04 AM CDT (HCC) this Medication Therapy procedure are Alf Not in the Anticoagulant results section. CMV DNA DETECT/QUANT, P Routine 01/30/2022 Transplant Liver Results for 8:04 AM CDT (HCC) this Medication Therapy procedure are Steel Post Installer Not in the Anticoagulant results section. TACROLIMUS LEVEL, B Routine 01/23/2022 Transplant Liver Resu lts for 8:11 AM CDT (HCC) this Medication Therapy procedure are Alf Not in the Anticoagulant results section. GLUCOSE, FASTING, S/P Routine 01/23/2022 Transplant Liver Re sults for 8:11 AM CDT (HCC) this Medication Therapy procedure are Alf Not in the Anticoagulant results section. COMPREHENSIVE METABOLIC Routine 01/23/2022 Transplant Liver Results for PANEL, S/P 8:11 AM CDT (HCC) this Medication Therapy procedure are Steel Post Installer Not in the Anticoagulant results section. CBC WITHOUT Routine 01/23/2022 Transplant Liver Results for DIFFERENTIAL, B 8:11 AM CDT (HCC) this Medication Therapy procedure are Alf Not in the Anticoagulant results section. CMV DNA DETECT/QUANT, P Routine 01/23/2022 Transplant Liver Results for 8:11 AM CDT (HCC) this Medication Therapy procedure are Alf Not in the Anticoagulant results section. CT CHEST WITHOUT IV RAD - Routine 01/21/2022 Transplant Liver Res ults for CONTRAST (most 9:26 AM CDT (HCC) this inpatients and Medication Therapy procedu re are all Alf Not in the outpatients) Anticoagulant results Pneumonia section. Aspergillus (HCC) [place] REF SUSCEPT Routine 01/21/2022 Results for MACROBROTH EA DRUG 8:58 AM CDT this procedure are in the results section. W[place] REF SUSCEPT Routine 01/21/2022 Results for MACROBROTH EA DRUG 8:58 AM CDT this procedure are in the results section. W[place] REF SUSCEPT Routine 01/21/2022 Results for MACROBROTH EA DRUG 8:58 AM CDT this procedure are in the results section. W[place] REF SUSCEPT Routine 01/21/2022 Results for MACROBROTH EA DRUG 8:58 AM CDT this procedure are in the results section. MYCOBACTERIAL CULTURE, V Routine 01/21/2022 Bronchiectasis R esults for 8:58 AM CDT ([facility]) this procedure are in the results section. ACID FAST SMEAR FOR Routine 01/21/2022 Bronchiectasis Result s for MYCOBACTERIUM 8:58 AM CDT ([facility]) this procedure are in the results section. FUNGAL CULTURE, ROUTINE Routine 01/21/2022 Bronchiectasis Re sults for 8:58 AM CDT ([facility]) this procedure are in the results section. FUNGAL SMEAR Routine 01/21/2022 Bronchiectasis Results for 8:58 AM CDT ([facility]) this procedure are in the results section. BACTERIAL CULTURE, Routine 01/21/2022 Bronchiectasis Results for AEROBIC + SUSC, RESP 8:58 AM CDT ([facility]) this procedure are in the results section. GRAM STAIN Routine 01/21/2022 Bronchiectasis Results for 8:58 AM CDT ([facility]) this procedure are in the results section. TACROLIMUS LEVEL, B Routine 01/16/2022 Transplant Liver Resu lts for 8:09 AM CDT ([facility]) this Medication Therapy procedure are Steel Post Installer Not in the Anticoagulant results section. GLUCOSE, FASTING, S/P Routine 01/16/2022 Transplant Liver Re sults for 8:09 AM CDT ([facility]) this Medication Therapy procedure are Alf Not in the Anticoagulant results section. COMPREHENSIVE METABOLIC Routine 01/16/2022 Transplant Liver Results for PANEL, S/P 8:09 AM CDT ([facility]) this Medication Therapy procedure are Alf Not in the Anticoagulant results section. CBC WITHOUT Routine 01/16/2022 Transplant Liver Results for DIFFERENTIAL, B 8:09 AM CDT ([facility]) this Medication Therapy procedure are Alf Not in the Anticoagulant results section. CMV DNA DETECT/QUANT, P Routine 01/16/2022 Transplant Liver Results for 8:09 AM CDT ([facility]) this Medication Therapy procedure are Alf Not in the Anticoagulant results section. DERMATOLOGY IMAGE EXAM Routine 01/11/2022 Resul ts for 12:00 PM CDT this procedure are in the results section. from Last 3 Months Results (ABNORMAL) CMV DNA Detect / Quant, Plasma (04/10/2022 8:21 AM CDT)Only the most recent of11 resultswithin the time period is included. [facility] gist Method Time Signature CMV DNA <35 (A) Undetected 04/11/2022 [facility] Detect/Quant, IU/mL 1:09 PM CDT P Comment: Result in log IU/mL is <1.54. CMV DNA is detected, but level present i s <35 IU/mL (<1.54 log IU/mL). This assay cannot accurately quantify CMV DNA below this level. ----ADDITIONAL INFORMATION---- The quantification range of this assay i s 35 to 10,000,000 IU/mL (1.54 log to 7.00 log IU/mL). Testing was performed u sing the tika CMV test ([employer] with the tika [id number] System. Specimen Anatomical Collection Method Collection Time Receive d Time (Source) Location / / Volume Laterality Blood (Blood, 04/10/2022 8:21 AM 04/11/20 7:06 Venous) CDT AM CDT Scott Granger P.A.-C. LAB MICROBIOLOGY - BLOOD ORD ERABLES Performing Organization Address City/State/[facility] Code Phon e Number [facility] [address] [place] [address] SU[facility] C[address] [place], [place] [id number] [place] [address] [place] (ABNORMAL) Tacrolimus, B (04/10/2022 8:20 AM CDT)Only the most recent of11 resultswithin the time period is included. athologist Signature Tacrolimus, B 1.2 (L) 5.0-15.0 04/11/2022 [facility] (Trough) 11:25 AM CDT ng/mL Comment: ----ADDITIONAL INFORMATION---- Target steady-state trough concentration s vary depending on the type of transplant, concomitant immunosuppressio n, clinical/institutional protocols, and time post-transplant. Results should be interpreted in conjunction with this clinical information and any physic al signs/symptoms of rejection/toxicity. Testing performed by Liquid Cryoocyteograp hy-Tandem Mass Spectrometry (LC-MS/MS). This test was developed and its performa nce characteristics determined by [facility] in a manner consistent with CLIA requirements. This test has not been cleared or approved by the U.S. Mer d and Drug Administration. Specimen Anatomical Collection Method Collection Time Receive d Time (Source) Location / / Volume Laterality Blood (Blood, 04/10/2022 8:20 AM 04/11/20 7:27 Venous) CDT AM CDT Scott Granger P.A.-C. LAB BLOOD NON ADD-ON Performing Organization Address City/State/ZIP Code Phon e Number [facility] [address] [place] [address] [place] [id number] [place] [address] [place] (ABNORMAL) CBC without Differential (04/10/2022 8:20 AM CDT)Only the most recent of11 resultswithin the time period is included. [facility] gist Method Time Signature Hemoglobin 9.8 (L) 13.2 - 04/10/2022 [facility] 16.6 g/dL 8:42 AM CDT Hematocrit 30.0 (L) 38.3 - 04/10/2022 [facility] 48.6 % 8:42 AM CDT Erythrocytes 3.06 (L) 4.35 - 04/10/2022 [facility] 5.65 8:42 AM CDT x10(12)/L MCV 98.0 (H) 78.2 - 04/10/2022 [facility] 97.9 fL 8:42 AM CDT RBC Distrib Width 13.0 11.8 - 04/10/2022 [facility] 14.5 % 8:42 AM CDT Platelet Count 314 135 - 317 04/10/2022 [facility] x10(9)/L 8:42 AM CDT Leukocytes 10.6 (H) 3.4 - 9.6 04/10/2022 [facility] x10(9)/L 8:42 AM CDT Specimen Anatomical Collection Method Collection Time Receive d Time (Source) Location / / Volume Laterality Blood (Blood, 04/10/2022 8:20 AM 04/10/20 8:22 Venous) CDT AM CDT Scott Granger P.A.-C. LAB BLOOD ADD-ON Performing Organization Address [facility] Phon e Number [address] [address] [place] [address] [address] (ABNORMAL) Glucose, Fasting (04/10/2022 8:20 AM CDT)Only the most recent of11 resultswithin the time period is included. P athologist Signature Glucose, P 119 (H) 70 - 100 04/10/2022 [facility] mg/dL 8:41 AM CDT Last Intake 11 hr 04/10/2022 [facility] 8:22 AM CDT Specimen Anatomical Collection Method Collection Time Receive d Time (Source) Location / / Volume Laterality Blood (Blood, 04/10/2022 8:20 AM 04/10/20 8:22 Venous) CDT AM CDT Scott Granger P.A.-C. LAB BLOOD NON ADD-ON Performing Organization Address City/[facility]/ZIP Code Phon e Number [address] [address] [place] [address] [address] (ABNORMAL) Comprehensive Metabolic Panel (04/10/2022 8:20 AM CDT)Only the most recent of11 resultswithin the time period is included. Analysis Performed At Patho logist Time Signature Potassium, P 3.8 3.6 - 5.2 04/10/2022 [facility] mmol/L 8:45 AM CDT Sodium, P 133 (L) 135 - 145 04/10/2022 [facility] mmol/L 8:45 AM CDT Chloride, P 96 (L) 98 - 107 04/10/2022 [facility] mmol/L 8:45 AM CDT Bicarbonate, P 22 22 - 29 04/10/2022 [facility] mmol/L 8:45 AM CDT Anion Gap, P 15 7 - 15 04/10/2022 [facility] 8:45 AM CDT BUN (Blood Urea 54 (H) 8 - 24 04/10/2022 [facility] Nitrogen), P mg/dL 8:45 AM CDT Creatinine 3.03 (H) 0.74 - 04/10/2022 [facility] 1.35 mg/dL 8:45 AM CDT Estimated GFR 22 (L) >=60 04/10/2022 [facility] (eGFR) mL/min/BSA 8:45 AM CDT Comment: Estimated GFR calculated using the 2020 CKD_EPI creatinine equation. Calcium, Total, P 9.2 8.8 - 10.2 mg/dL 04/10/2022 8:45 AM CDT [facility] Glucose, P CANCELED mg/dL 04/10/2022 8:22 AM CDT [facility] Comment: Duplicate test request. Result canceled by the ancillary. Protein, Total, P 6.6 6.3 - 7.9 g/dL 04/10/2022 8:45 A M CDT [facility] Albumin, P 4.1 3.5 - 5.0 g/dL 04/10/2022 8:45 AM CDT C NFL Aspartate Aminotransferase (AST), 17 8 - 48 U/L 04/10 8:45 AM CDT [facility] P Alkaline Phosphatase, P 126 40 - 129 U/L 04/10/2022 8: 45 AM CDT [facility] Alanine Aminotransferase (ALT), P 14 7 - 55 U/L 04/10 8:45 AM CDT [facility] Bilirubin, Total, P 0.3 <=1.2 mg/dL 04/10/2022 8:45 AM CDT [facility] Specimen Anatomical Collection Method Collection Time Receive d Time (Source) Location / / Volume Laterality Blood (Blood, 04/10/2022 8:20 AM 04/10/20 8:22 Venous) CDT AM CDT Scott Granger P.A.-C. LAB BLOOD ADD-ON Performing Organization Address City/State/ZIP Code Phon e Number [facility]- [address] [place] [address] [place] [address] Direct Laryngoscope-Otorhinolaryngology Image Exam (03/22/2022 8:15 AM CDT) Specimen (Source) Anatomical Collection Method Collection Time Re ceived Time Location / / Volume Laterality 03/22/2022 8:11 AM CDT Narrative II - 03/22/2022 8:17 AM CDT This order has been created and auto-finalized to support the import of images acquired without order. The clini adelfo documentation to support these images can be found on the encounter ana t produced images. Provider Not In System IMG NON RAD IMAGING PROCEDUR ES Performing Organization Address City/State/ZIP Code Phon e Number [facility] NA (ABNORMAL) Bacterial Culture, Aerobic + Susc (03/22/2022 8:13 AM CDT) Component Value Ref Test Analysis Performed At [facility] gist Range Method Time Signature Bacterial STAPHYLOCOCCUS AUREUS 03/25/2022 DTL Culture, 3+ 1:31 PM CDT Aerobic + (A) Susc Specimen Anatomical Collection Method Collection Time Receive d Time (Source) Location / / Volume Laterality Swab (Paranasal 03/22/2022 8:13 AM 2021 9:24 Sinus, Ethmoid CDT AM CDT Right) Comment: Specimen Source Site: Swab Organism Antibiotic Method Susceptibility Staphylococcus aureus Oxacillin SUSCEPTIBILITY, DAVID (MCG/M L) 0.5 mcg/mL: Susceptible Comment: Use oxacillin interpretation to predict results for anti-staphylococcal beta-lac ramey antibiotics (except ceftaroline). Staphylococcus aureus Vancomycin SUSCEPTIBILITY, DAVID 1 mcg/ mL: Susceptible (MCG/ML) Staphylococcus aureus Clindamycin SUSCEPTIBILITY, DAVID >2 mcg /mL: Resistant (MCG/ML) Staphylococcus aureus Levofloxacin SUSCEPTIBILITY, DAVID <=0.5 mcg/mL: (MCG/ML) Susceptible Comment: Fluoroquinolones have a limi onel role in treatment of staphylococcal infections; c onsult Infectious Diseases if considering usage. Staphylococcus aureus Trimethoprim + SUSCEPTIBILITY, DAVID <=0.5/ 9.5 mcg/mL: Sulfamethoxazole (MCG/ML) Susceptible Staphylococcus aureus Minocycline SUSCEPTIBILITY, DAVID <=4 mc g/mL: (MCG/ML) Susceptible Staphylococcus aureus Rifampin SUSCEPTIBILITY, DAVID <=0.5 mcg/mL: (MCG/ML) Susceptible Comment: Rifampin should not be used as monotherapy Staphylococcus aureus Doxycycline SUSCEPTIBILITY, DAVID (MCG/M L) <=4 mcg/mL: Susceptible Jaxson Churchill P.A.-C., M.S., M.P.H. LAB MICROBIOLOGY - GENERAL ORDERABLES Performing Organization Address City/State/ZIP Code Phon e Number [facility] - [address] [place], [place] [address] [facility] D[facility] [place], [place] [id number] [facility] [address] Chest without IV Contrast (03/13/2022 2:29 PM CDT)Only the most recent of2 resultswithin the time period is included. Anatomical Region Laterality Modality Chest, Thoracic RST LOS, Thoracic ARZ N/A Co mputed Tomography, Computed LOS, Thoracic FLA LOS Tomography Specimen (Source) Anatomical Collection Method Collection Time Re ceived Time Location / / Volume Laterality 03/13/2022 4:18 PM CDT Impressions 03/13/2022 4:28 PM CDT 1. Overall no significant change in the diffuse infectious/inflammatory bronchitis and bronchiolitis. 2. Additional findings are detailed in t he body of the report. Narrative 03/13/2022 4:28 PM CDT EXAM: CT CHEST WITHOUT IV CONTRAST COMPARISON: Multiple chest CTs from 2019 to 01/21/2022 ?? FINDINGS: While left upper lobe nodularities have decreased, left lower lobe and right lung nodularities and mucus plugging have slightly increased. Similar diffuse bronchial wall thickening. No pleural effusion or thickening identified. Shotty subcentimeter nodes without thora cic adenopathy by size criteria. Mild aortic and severe coronary artery c alcifications are again identified. Diffuse dilatation of the pulmonary arteries with the main pul monary artery measuring 3.2 cm at the level of its bifurcation on series 3 image 307, could be seen in pulmonary arterial hypertension. Small sliding esophageal hiatal hernia i s again identified. 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 Hypodense and hyperdense renal lesions a re presumably cysts. 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 Status post cholecystectomy. Similar generous size spleen. Similar pancreatic tail cystic lesion centered on series 3 image 633. Mild spinal degenerative changes are aga in identified. Healed right clavicular and rib fractures. Similar left humeral head sclerotic focu s, presumably bone island. No aggressive osseous lesions identified. Thank you for the consultation. 3D maximum intensity projection (MIP) im ages were created on a dependent workstation as ordered by the treating provider and reviewed by norma toure radiologist to increase sensitivity for detection of pulmonary nodules. Procedure Note Raphael Vazquez M.D. - 09/21/2022Formattin g of this note might be different from the original. EXAM: CT CHEST WITHOUT IV CONTRAST COMPARISON: Multiple chest CTs from 2019 to 01/21/2022 FINDINGS: While left upper lobe nodularities have decreased, left lower lobe and right lung nodularities and mucus plugging have slightly increased. Similar diffuse bronchial wall thickening. No pleural effusion or thickening identified. Shotty subcentimeter nodes without thora cic adenopathy by size criteria. Mild aortic and severe coronary artery c alcifications are again identified. Diffuse dilatation of the pulmonary arteries with the main pul monary artery measuring 3.2 cm at the level of its bifurcation on series 3 image 307, could be seen in pulmonary arterial hypertension. Small sliding esophageal hiatal hernia i s again identified. 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 Hypodense and hyperdense renal lesions a re presumably cysts. 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 Status post cholecystectomy. Similar generous size spleen. Similar pancreatic tail cystic lesion centered on series 3 image 633. Mild spinal degenerative changes are aga in identified. Healed right clavicular and rib fractures. Similar left humeral head sclerotic focu s, presumably bone island. No aggressive osseous lesions identified. Thank you for the consultation. 3D maximum intensity projection (MIP) im ages were created on a dependent workstation as ordered by the treating provider and reviewed by e radiologist to increase sensitivity for detection of pulmonary nodules. IMPRESSION: 1. Overall no significant change in the diffuse infectious/inflammatory bronchitis and bronchiolitis. 2. Additional findings are detailed in t he body of the report. Trung Plasencia P.A.-C., M.S. IMG CT PROCEDURES Pulmonary Function Tests (02/07/2022 1:23 PM CDT) athologist Signature VC MAX PRE 3.08 L 02/07/2022 [facility] 2:36 PM CDT SUITE FVC 3.08 L 02/07/2022 [facility] 2:36 PM CDT SUITE FEV1 1.66 L 02/07/2022 [facility] 2:36 PM CDT SUITE FEV1/FVC 54.03 % 02/07/2022 [facility] 2:36 PM CDT SUITE [id number]% 0.79 L/s 02/07/2022 [facility] 2:36 PM CDT SUITE PEF PRE 5.42 L/s 02/07/2022 [facility] 2:36 PM CDT SUITE FET PRE 13.93 sec 02/07/2022 [facility] 2:36 PM CDT SUITE DLCO 17.81 ml/(min*mm 02/07/2022 [facility] Hg) 2:36 PM CDT SUITE DLCOc 19.62 ml/(min*mm 02/07/2022 [facility] Hg) 2:36 PM CDT SUITE HB 11.70 g(Hb)/dL 02/07/2022 [facility] 2:36 PM CDT SUITE VA 4.77 L 02/07/2022 [facility] 2:36 PM CDT SUITE [id number] 96.00 % 02/07/2022 [facility] 2:36 PM CDT SUITE PulseRest 96.00 1/min 02/07/2022 [facility] 2:36 PM CDT SUITE [id number] 93.00 % 02/07/2022 [facility] 2:36 PM CDT SUITE PulseExer 116.00 1/min 02/07/2022 [facility] 2:36 PM CDT SUITE EXER TIME 3.00 min 02/07/2022 [facility] 2:36 PM CDT SUITE STEP HEIGHT 9.00 Inch 02/07/2022 [facility] PRE 2:36 PM CDT SUITE TLC 6.90 L 02/07/2022 [facility] 2:36 PM CDT SUITE VC PRE 3.06 L 02/07/2022 [facility] 2:36 PM CDT SUITE FRCPLETH 4.67 L 02/07/2022 [facility] 2:36 PM CDT SUITE RV 3.84 L 02/07/2022 [facility] 2:36 PM CDT SUITE RV % TLC PRE 55.68 % 02/07/2022 [facility] 2:36 PM CDT SUITE TLC% 101 % % 02/07/2022 [facility] 2:36 PM CDT SUITE % PRED RV 164 % % 02/07/2022 [facility] 2:36 PM CDT SUITE % PRED VC MAX 74 % % 02/07/2022 [facility] 2:36 PM CDT SUITE FVC% 74 % % 02/07/2022 [facility] 2:36 PM CDT SUITE FEV1% 52 % % 02/07/2022 [facility] 2:36 PM CDT SUITE % PRED 71 % % 02/07/2022 [facility] FEV1/FVC 2:36 PM CDT SUITE % PRED FEF 32 % % 02/07/2022 [facility] 25-75% 2:36 PM CDT SUITE % PRED PEF 67 % % 02/07/2022 [facility] 2:36 PM CDT SUITE DLCO% 70 % % 02/07/2022 [facility] 2:36 PM CDT SUITE DLCOc% 78 % % 02/07/2022 [facility] 2:36 PM CDT SUITE PRED TLC 6.85 02/07/2022 [facility] 2:36 PM CDT SUITE PRED RV 2.34 02/07/2022 [facility] 2:36 PM CDT SUITE PRED VC MAX 4.15 02/07/2022 [facility] 2:36 PM CDT SUITE PRED FVC 4.15 02/07/2022 [facility] 2:36 PM CDT SUITE PRED FEV 1 3.17 02/07/2022 [facility] 2:36 PM CDT SUITE PRED FEV1/FVC 76.6 02/07/2022 [facility] 2:36 PM CDT SUITE PRED FEF 2.49 02/07/2022 [facility] 25-75% 2:36 PM CDT SUITE PRED PEF 8.0 02/07/2022 [facility] 2:36 PM CDT SUITE PRED DLCO 25.3 02/07/2022 [facility] 2:36 PM CDT SU[address] PRED DLCOc 25.3 02/07/2022 [facility] 2:36 PM CDT SUITE Specimen (Source) Anatomical Collection Method Collection Time Re ceived Time Location / / Volume Laterality 02/07/2022 1:23 PM CDT Impressions [facility] SUITE - 02/07/2022 2:36 PM C DT Abnormal. Moderate obstruction and air t rapping. Diffusing capacity adjusted for hemoglobin is normal. Pulse oximetry is normal at rest and during exercise. Compared to 08/31/2020, FEV1 and TLC have declined . Narrative This result has an attachment that is no t available. Procedure Note Trevor Barton M.D. - 2021 IMPRESSION: Abnormal. Moderate obstruction and air t rapping. Diffusing capacity adjusted for hemoglobin is normal. Pulse oximetry is normal at rest and during exercise. Compared to 08/31/2020, FEV1 and TLC have declined. Connie RocaSDemetrius PFT ORDERABLES Performing Organization Address [facility] Phon e Number [facility] SUITE [facility] SUITE NA SARS Coronavirus-2 RNA, V Asymptomatic (02/04/2022 4:38 PM CDT) [facility] Method Time Signature SARS-CoV-2 Swab, 02/05/2022 [facility] Specimen Nasopharynx 2:30 PM CDT Source SARS CoV-2 Undetected Undetected 02/05/2022 [facility] RNA, TMA 2:30 PM CDT Comment: SARS-CoV-2 RNA absent. This result does not rule out COVID-19 in the patient, as the sensitivity of the test depends o n the timing of the specimen collection and the quality of the specim en. Result should be correlated with patient's history and clinical presentat ion. ----ADDITIONAL INFORMATION---- This molecular amplification test was pe rformed using the Aptima SARS-CoV-2 assay ([employer] on the [employer] ABS[employer] tem under emergency use authorization (EUA) by the U.S. Food and Drug Administ ration. Fact sheets for this EUA assay can be fo und at the following links: For Healthcare Providers: https://www.fd a.gov/media/730834/download For Patients: https://www.fda.gov/media/ 158393/download Specimen Anatomical Collection Method Collection Time Receive d Time (Source) Location / / Volume Laterality Varies 02/04/2022 4:38 PM 4:55 (Nasopharynx) CDT AM CDT Connie RocaSDemetrius LAB MICROBIOLOGY - GENERAL ORDERABLES Performing Organization Address City/[facility] Phon e Number [facility]- [address] [place] [id number] [place] [address] [address] [facility] [place] [facility] Ant Test (01/21/2022 8:58 AM CDT) P athologist Signature Test Name Itraconazole 02/07/2022 [facility] 8:24 AM CDT Result See Below 02/13/2022 [facility] 2:31 PM CDT Comment: Antifungal Susceptibility Testing Source: Sputum Species ID Provided: Fusarium sp. Result Name ?Result ?Flag ? Units ? Itraconazole (ITRA) ? >16 ? mcg/mL ? Interpretation ? No Established Breakpoints Specimen Anatomical Collection Method Collection Time Receive d Time (Source) Location / / Volume Laterality Varies 01/21/2022 8:58 AM 8:24 CDT AM CDT Trung Plasencia P.A.-C. MThomas LAB [facility] ORDERABLES Performing Organization Address City/State/ZIP Code Phon e Number [facility] [address] [place], [place] [phone] [place] Department [place] [address] [place] [id number] [facility] Dept of Path-Fungus Lab [facility] Referral Test 1 (01/21/2022 8:58 AM CDT) P athologist Signature Test Name Caspofungin 02/07/2022 MIS 8:24 AM CDT Result See Below 02/13/2022 M[facility] 2:31 PM CDT Comment: Antifungal Susceptibility Testing Source: Sputum Species ID Provided: Fusarium sp. Result Name ?Result ?Flag ? Units ? Caspofungin (ALESSANDRA) ? >8 ?mcg/mL ? Interpretation ? No Established Breakpoints Test Performed By: [address] Department of Pathology [place], [place] ??[phone] Specimen Anatomical Collection Method Collection Time Receive d Time (Source) Location / / Volume Laterality Varies 01/21/2022 8:58 AM 2 8:24 CDT AM CDT Trung Plasencia P.A.-C., M.S. LAB MISC ORDERABLES Performing Organization Address City/[facility]/ZIP Code Phon e Number MISC REFERRAL LAB MISC Voriconazole - Sent Out Lab (01/21/2022 8:58 AM CDT) Component Value Ref Test Analysis Performed At [facility] Range Method Time Signature Source Sputum, Sputum 02/13/2022 [facility] 2:31 PM CDT Received as Fusarium sp. 02/13/2022 [facility] (Organism) 2:31 PM CDT Result 8 ug/mL 02/13/2022 [facility] 2:31 PM CDT Interpretation No Established 02/13/2022 [facility] Breakpoints 2:31 PM CDT Specimen Anatomical Collection Method Collection Time Receive d Time (Source) Location / / Volume Laterality Varies 01/21/2022 8:58 AM 2 8:24 CDT AM CDT Trung Plasencia P.A.-C., M.S. LAB MICROBIOLOGY - GENERAL ORDERABLES Performing Organization Address City/[facility]/ZIP Code Phon e Number [address] [phone] [place] Department Of [place] [address] Dept of Path-Fungus Lab Posaconazole - Sent Out Lab (01/21/2022 8:58 AM CDT) Component Value Ref Test Analysis Performed At [facility] [employer] Range Method Time Signature Source Sputum, Sputum 02/13/2022 [facility] 2:31 PM CDT Received as Fusarium sp. 02/13/2022 [facility] (Organism) 2:31 PM CDT Result >16 ug/mL 02/13/2022 [facility] 2:31 PM CDT Interpretation No Established 02/13/2022 [facility] Breakpoints 2:31 PM CDT Specimen Anatomical Collection Method Collection Time Receive d Time (Source) Location / / Volume Laterality Varies 01/21/2022 8:58 AM 8:24 CDT AM CDT Trung Plasencia P.A.-C. MDemetriusS. LAB MICROBIOLOGY - GENERAL ORDERABLES Performing Organization Address City/State/ZIP Code Phon e Number [facility] [address] [place], [place] [phone] [place] Department Of Path[place] [address] Dept of Path-Fungus Lab (ABNORMAL) Bacterial Culture, Aerobic + Susc, Resp (01/21/2022 8:58 AM CDT) Patholo gist Method Time Signature Bacterial With upper 01/25/2022 DTL Culture, respiratory/or 1:50 PM CDT Aerobic, Resp al microbiota (A) Bacterial SERRATIA MARCESCENS 01/25/2022 DTL Culture, 4+ 1:50 PM CDT Aerobic, Resp (A) Comment: Serratia marcescens, S. nematodiphila an d S. ureilytica may be difficult to distin guish from one another. This organism may contain an inducible b eta-lactamase. Second- or third-generation cephalospori n monotherapy may result in the emergence of high-level resistance. Preferred empiric therapy, p ending antimicrobial susceptibility results, is cefepime, a f luoroquinolone, or a carbapenem, unless clinically contr aindicated. Specimen Anatomical Collection Method Collection Time Receive d Time (Source) Location / / Volume Laterality Sputum (Sputum) 01/21/2022 8:58 AM 2021 9:57 CDT AM CDT Comment: Specimen Source Site: Sputum Organism Antibiotic Method Susceptibility Serratia marcescens Ampicillin SUSCEPTIBILITY, >16 mcg/mL: Resistant DAVID (MCG/ML) Serratia marcescens Ampicillin + Sulbactam SUSCEPTIBILITY, >16/8 mcg/mL: Resistant DAVID (MCG/ML) Serratia marcescens Meropenem SUSCEPTIBILITY, <=0.12 mcg/m L: DAVID (MCG/ML) Susceptible Serratia marcescens Ertapenem SUSCEPTIBILITY, <=0.25 mcg/m L: DAVID (MCG/ML) Susceptible Serratia marcescens Piperacillin + Tazobactam SUSCEPTIBILITY, <= 8/4 mcg/mL: DAVID (MCG/ML) Susceptible Serratia marcescens Ciprofloxacin SUSCEPTIBILITY, 2 mcg/mL: Re sistant DAVID (MCG/ML) Serratia marcescens Levofloxacin SUSCEPTIBILITY, 2 mcg/mL: Re sistant DAVID (MCG/ML) Serratia marcescens Cefazolin SUSCEPTIBILITY, >16 mcg/mL: Resistant DAVID (MCG/ML) Serratia marcescens Ceftriaxone SUSCEPTIBILITY, <=1 mcg/mL: Susceptible DAVID (MCG/ML) Serratia marcescens Ceftazidime SUSCEPTIBILITY, <=4 mcg/mL: Susceptible DAVID (MCG/ML) Serratia marcescens Cefepime SUSCEPTIBILITY, <=2 mcg/mL: Susceptible DAVID (MCG/ML) Serratia marcescens Amikacin SUSCEPTIBILITY, <=8 mcg/mL: Susceptible DAVID (MCG/ML) Serratia marcescens Gentamicin SUSCEPTIBILITY, <=1 mcg/mL: Susceptible DAVID (MCG/ML) Serratia marcescens Tobramycin SUSCEPTIBILITY, <=1 mcg/mL: Susceptible DAVID (MCG/ML) Serratia marcescens Aztreonam SUSCEPTIBILITY, <=4 mcg/mL: Susceptible DAVID (MCG/ML) Serratia marcescens Trimethoprim + SUSCEPTIBILITY, 2/38 mcg/mL: Sulfamethoxazole DAVID (MCG/ML) Susceptible Trung Plasencia P.A.-C., M.S. LAB MICROBIOLOGY - GENERAL ORDERABLES Performing Organization Address City/State/ZIP Code Phon e Number [facility] - [address] [place] [phone] [facility] [place] [address] [facility] [address] [facility] Mycobacterial Culture (01/21/2022 8:58 AM CDT) [facility] Method Time Signature Mycobacterial No growth 03/04/2022 DTL Culture after 42 1:01 PM CDT days of incubation . Specimen Anatomical Collection Method Collection Time Receive d Time (Source) Location / / Volume Laterality Sputum (Sputum) 01/21/2022 8:58 AM 2021 9:57 CDT AM CDT Comment: Specimen Source Site: Sputum Trung Plasencia P.A.-C. M.S. LAB MICROBIOLOGY - GENERAL ORDERABLES Performing Organization Address [facility] Phon e Number [facility] - [address] [facility] Fungal Smear (01/21/2022 8:58 AM CDT) P athologist Signature Fungal Smear Negative. 01/21/2022 DTL 1:38 PM CDT Specimen Anatomical Collection Method Collection Time Receive d Time (Source) Location / / Volume Laterality Sputum (Sputum) 01/21/2022 8:58 AM 2021 9:57 CDT AM CDT Comment: Specimen Source Site: Sputum Trung Plasencia P.A.-C. M.S. LAB MICROBIOLOGY - GENERAL ORDERABLES Performing Organization Address [facility] Phon e Number [facility] - [address] [place] [phone] Acid Fast Smear For Mycobacterium (01/21/2022 8:58 AM CDT) Patholo gist Method Time Signature Acid Fast Smear Negative. 01/21/2022 DTL For Mycobacterium 10:33 PM CDT Specimen Anatomical Collection Method Collection Time Receive d Time (Source) Location / / Volume Laterality Sputum (Sputum) 01/21/2022 8:58 AM 2021 9:57 CDT AM CDT Comment: Specimen Source Site: Sputum Trung Plasencia P.A.-C. M.S. LAB MICROBIOLOGY - GENERAL ORDERABLES Performing Organization Address City/[facility] Phon e Number [facility] - [address] [place] [phone] Gram Stain (01/21/2022 8:58 AM CDT) Patholo gist Method Time Signature Gram Stain Upper respiratory/oral microbiota 01/21 DTL White blood cells, Many. 10:58 AM CDT Epithelial cells, Few. Specimen Anatomical Collection Method Collection Time Receive d Time (Source) Location / / Volume Laterality Sputum (Sputum) 01/21/2022 8:58 AM 2021 9:57 CDT AM CDT Comment: Specimen Source Site: Sputum Trung Plasencia P.A.-C. M.S. LAB MICROBIOLOGY - GENERAL ORDERABLES Performing Organization Address City/[facility]/ZIP [facility] Phon e Number [facility] - [address] [place], [place] [address] [place] [address] (ABNORMAL) Fungal Culture, Routine (01/21/2022 8:58 AM CDT) [facility] gist Method Time Signature Fungal Mixed Fungal 02/14/2022 DT Culture, Alfreda (A) 8:29 AM CDT Routine Fungal FUSARIUM sp 02/14/2022 DT Culture, Few 8:29 AM CDT Routine (A) Comment: Susceptibility testing is not indicated for all molds. Infectious Diseases consult is required to order mold susceptibility testing. Fungal Culture, Routine SAPROPHYTIC FUNGUS 022 8:29 AM CDT DT Few (A) Comment: Not further identified. Susceptibility testing is not indicated for all molds. Infectious Diseases consult is required to order mold susceptibility testing. Specimen Anatomical Collection Method Collection Time Receive d Time (Source) Location / / Volume Laterality Sputum (Sputum) 01/21/2022 8:58 AM 2021 9:57 CDT AM CDT Comment: Specimen Source Site: Sputum Trung Plasencia P.A.-C., M.S. LAB MICROBIOLOGY - GENERAL ORDERABLES Performing Organization Address City/[facility] Code Phon e Number [facility] - [address] [place], [place] [address] [place] [address] ear, right conchal bowl 124 Mohs micrographic surgery-Dermatology Image Exam (01/11/2022 12:00 PM CDT) Specimen (Source) Anatomical Location Collection Method / Collectio n Time Received Time / Laterality Volume Narrative IIMS - 01/11/2022 4:18 PM CDT This order has been created and auto-finalized to support the import of images acquired without order. The clini adelfo documentation to support these images can be found on the encounter ana t produced images. Provider Not In System IMG NON RAD IMAGING PROCEDUR ES Performing Organization Address City/State/ZIP Code Phon e Number I[facility] IIMS NA from Last 3 Months Insurance Payer Benefit Plan Subscriber ID Effective Phone Address Typ e / Group Dates MEDICARE MEDICARE A [id number] 2015-Pres [address] [place] [address] [employer] [place] [id number] 2017-Pres [phone] [address] X Cost Share BLUE [employer]IELD BLUE COST ent [phone] [place] [address] (Work) [phone] Advance Directives For more information, please contact: [phone] Documents on File Type Date Recorded Patient Group Controller Explanati on Advance Directives 09/29/2019 11:22 AM POA for Hemurtaza lthcare Latest Code Status on File Code Status Date Activated Date Inactivated Comments Full Code 10/12/2021 5:47 PM 10/16/2021 7:14 PM Question Answer Comments Full Code: Discussed Code Status History Code Status Date Activated Date Inactivated Comments Full Code 07/26/2021 11:54 AM 07/26/2021 6:09 PM Question Answer Comments Full Code: Not Discussed Due to: Patient does not have the capacity Full Code 07/24/2021 11:18 AM 07/24/2021 2:46 PM Question Answer Comments Full Code: Discussed Full Code 07/24/2021 6:57 AM 07/24/2021 11:18 AM Question Answer Comments Full Code: Discussed Full Code 05/24/2021 8:36 PM 05/26/2021 5:19 PM Question Answer Comments Full Code: Discussed sister Parris Chung is surrogate MDM Care Teams Last Model Department Supervisor Relationship Specialty Start Date End Date Elsewhere, Pcp PCP - General Family Medicine 07/29/17 [facility] - Laboratory Medicine 04/12/[address] [id number]
--- OUTSIDE RECORDS SUMMARY | 2022-04-13 11:51 | XMS_ITS | Clinical Summary ---
:1955 Author Organization [facility] [place] [address] Care Team Providers Name Role Phone Ryan Cole MD Primary Care Provider Allergies Active Allergy Reactions Severity Noted Date Comments Aspirin Other - Describe In 12/27/2011 Liver tr ansplant Comment Field Cefixime Diarrhea High 01/20/2017 C Diff Ciprofloxacin Intolerance-Can't Medium 07/14/2013 Liver tra nsplant Take, Other - Describe Tendo n pain In Comment Field Citalopram Intolerance-Can't High 07/14/2013 Liver owusu splant Take, Other - Describe michell In Comment Field Erythromycin 09/09/2006 interacts with meds Erythromycin Base Other - Describe In Medium 05/22/2015 Due to medications, Comment Field interacts with transplant medi cations Ibuprofen Other - Describe In 11/04/2016 PT SHOUL D NOT HAVE THIS Comment Field MED R/T LIVER TRANSPLANT Quetiapine Edema, Other - High 05/22/2015 Muscle pain a nd Describe In Comment swelling Field Quetiapine Fumarate Intolerance-Can't Take 07/14/2013 Liver transplant Olanzapine Muscle Weakness Low 01/20/2017 Medications Medication Sig Dispensed Refills Start End Date Status Date MULTIPLE VITAMIN take 1 tablet 0 Active TAB by oral route once daily with food Blood Pressure 1 Device 0 Activ e Monitor 4 aspirin enteric Take 1 tablet 0 Active coated 81 mg by mouth once 4 tablet daily with a meal. Blood Pressure As directed. 1 Kit 0 Ac tive Test Kit-Medium 4 kit mycophenolate Take 1 tablet 0 Ac tive (CELLCEPT) 500 mg by mouth every 6 tablet 12 hours. miscellaneous As directed. 1 Each 0 Act davin medical supply 7 (BLOOD PRESSURE CUFF) miscIndications: Essential hypertension levothyroxine Take 1 tablet 3 Ac tive (SYNTHROID) 25 mcg by mouth once 7 tablet daily. predniSONE Take 1 tablet 3 Activ e (DELTASONE) 5 mg by mouth once 7 tablet daily. lamoTRIgine Take 1 tablet 1 Acti ve (LAMICTAL) 200 mg by mouth once 7 tablet daily. medication order Calcium-magnesi 0 Active composer um, take 3 7 capsule by mouth twice daily. tacrolimus Take 2 capsules 0 Act davin (PROGRAF) 0.5 mg by mouth every 7 capsule 12 hours. atorvastatin Take 10 mg by 1 Act davin (LIPITOR) 10 mg mouth once 9 tablet daily. doxazosin Take 0.5 90 tablet. 3 Active (Cardura) 8 mg Tablets (4 mg) 1 tablet by mouth at bedtime. ondansetron Take 4 mg by 0 Activ e (ZOFRAN) 4 mg mouth every 8 1 tablet hours if needed. torsemide Take 3 Tablets 3 Activ e (DEMADEX) 10 mg (30 mg) by 1 tablet mouth once daily. coenzyme q10 100 Daily 0 Act davin mg cap benzonatate Take 1 Capsule 30 Capsule 1 Ac tive (Tessalon Perles) (100 mg) by 1 100 mg mouth 3 times capsuleIndications daily if needed : Chronic cough for Cough. B Complex-Vitamin Take 1 Tablet 0 05/26/20 Active C-Folic Acid 100-1 by mouth. 1 22 mg tab ipratropium 0 Active (ATROVENT NASAL) 1 21 mcg (0.03 %) nasal spray loratadine TAKE 1 90 Tablet 1 Active (CLARITIN) 10 mg TABLET(10 MG) 2 tabletIndications: BY MOUTH EVERY Chronic sinusitis, DAY unspecified location montelukast TAKE 1 90 Tablet 1 Active (SINGULAIR) 10 mg TABLET(10 MG) 2 tabletIndications: BY MOUTH EVERY Chronic sinusitis, DAY unspecified location albuterol HFA Inhale 2 Puffs 0 A ctive (PRO-AIR; by mouth every 1 VENTOLIN; 6 hours if PROVENTIL) 90 needed. mcg/actuation inhaler Renate-Celestine Rx TAKE 1 TABLET 0 Act advin tablet BY MOUTH DAILY 2 WITH DINNER traZODone Take 100 mg by 0 Activ e (DESYREL) 100 mg mouth once 2 tablet daily if needed. trimethoprim-sulfa TAKE 1 TABLET 0 Active methoxazole, BY MOUTH AT 2 80-400 mg, BEDTIME AFTER (BACTRIM SS; DIALYSIS SEPTRA SS) tab NIFEdipine Take 30 mg by 0 Activ e (PROCARDIA XL) 30 mouth once 2 mg daily before a Extended-Release meal. tablet Lidocaine-Prilocai Apply topically 0 Active ne (EMLA) 2.5-2.5 to affected 2 % cream area(s). voriconazole Take 1 Tablet 0 Act davin (Vfend) 200 mg (200 mg) by 2 tablet mouth two times daily before meals. azelastine 137 Inhale 1 mg 0 Act davin mcg/actuation into affected (ASTELIN) nasal nostril(s). spray Trelegy Ellipta Inhale 1 Puff 0 Active 200-62.5-25 mcg by mouth once 2 inhaler daily. amoxicillin TAKE 4 CAPSULES 4 capsule. 1 A ctive (AMOXIL) 500 mg BY MOUTH BEFORE 2 capsuleIndications DENTAL : History of joint APPOINTMENT replacement, unspecified joint predniSONE Take 4 Tablets 21 Tablet 0 04/17/20 Acti ve (DELTASONE) 10 mg (40 mg) by 2 22 tabletIndications: mouth once Wrist tendonitis daily with a meal for 3 days, THEN 2 Tablets (20 mg) once daily with a meal for 3 days, THEN 1 Tablet (10 mg) once daily with a meal for 3 days. budesonide ADD 1 RESPULE 0 04/08/20 Disco ntinued (PULMICORT TO 8 OZ SALINE 1 22 (*Pa tient states RESPULES) 0.5 mg/2 AND IRRIGATE no longer mL neb suspension EACH SIDE OF taking/Not on NOSE TWICE sending f acility DAILY list) DIRECTED amoxicillin TAKE 4 CAPSULES 4 capsule. 1 03/28/20 D iscontinued (AMOXIL) 500 mg BY MOUTH BEFORE 07 14 (Reorder capsuleIndications DENTAL ( E-cancel not : History of joint APPOINTMENT sent)) replacement, unspecified joint Active Problems Problem Noted Date ESRD (end stage renal disease) on dialysis 01/23/2022 Anemia of unknown etiology 05/24/2021 Hyponatremia 05/24/2021 Hypothyroidism (acquired) 05/24/2021 Acute bronchitis due to severe acute respiratory syndr ome coronavirus 2 11/12/2020 (SARS-CoV-2) Chronic sinusitis 01/31/2020 CKD (chronic kidney disease) stage 4, GFR 15-29 ml/min 06/03/2016 Other specified organ or tissue replaced by transplant (V42.89) 06/19/2012 Mixed hyperlipidemia 07/28/2007 Unspecified essential hypertension 07/10/2007 Anxiety state, unspecified 09/09/2006 Liver transplant Overview: & 2012 On chronic immune suppression 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 Thi s will not affect patient care or billing. This comment can be deleted. Other abnormal glucose 07/28/2007 12/27/2011 Overview: prediabetes, 2007 Unspecified disorder of liver 09/09/2006 11/27/2012 Encounters Date Type Specialty Care Team Description 04/08/2022 Office Visit Ryan Cole MD [place] w Injury (Pain started first about 3 w eeks); Wrist Pain/problem (S tarted about 2.5 weeks ago) 04/08/2022 Travel 03/29/2022 Orders Only Scanner <No scans attac hed> 02/18/2022 Preop Visit Ryan Cole MD Preo perative Exam (Right ankle surgery o n 03/06/22 [facility] in [place] by Dr. Tan. ) 02/18/2022 Travel 01/11/2022 Refill Ryan Cole MD Refi ll Request (Symbicort) from Last 3 Months Immunizations Name Administration Dates Next Due AMB INFLUENZA, IIV4 (AGE=>6MOS) MDV 04/22/2018 (Flu Clinic Only) COVID-19 vaccine (Moderna 01/21/2022, 09/03/2020, 08/06/2020 100mcg/0.5mL) PF, MDV Hepatitis A (Adult) 12/25/2012, 12/07/1998, 06/08/1998 Hepatitis A, Unspecified 12/07/1998, 06/08/1998 Hepatitis B (Adult) 12/07/1998, 07/06/1998, 06/22/1998, 06/08/1998 Hepatitis B, Unspecified 12/07/1998, 07/06/1998, 06/22/1998, 06/08/1998 Influenza A (H1N1), Inactivated 05/16/2009 Influenza A (H1N1), Inactivated (Age 1105/16/2009 >=3 Years) Influenza Virus, Unspecified 06/23/2015, 04/06/2015, 014, 04/06/2013 Influenza, High-dose Quadrivalent 03/05/2021, 02/11/2020 Inactivated Influenza, IIV3 (Age 6-35 mos) 03/28/2016, 03/15/2015, 03/26 Influenza, IIV3 (Age >=3 years) 03/16/2015, 02/14/2014, 02/21, 02/19/2012, 03/26/2011, 03/28/2010, 04/05/2004 Influenza, IIV4 03/15/2019, 04/22/2018 Influenza, IIV4 (=>6mos) MDV 03/15/2019 Influenza, Inactivated AIIV4 (Age 65+ 04/08/2022 Years) Preserv Free Pneumococcal Poly,23-Valent 04/30/2005, 08/07/1995 (Pneumovax) Pneumococcal conj 13-Valent (Prevnar 12/25/2012, 06/23/2009 13) Pneumococcal, Unspecified 06/23/2014 TD, UNSPECIFIED 05/11/2003 Td (Age >=7 Years) 05/11/2003 Tdap 02/19/2012 Tuberculin (PPD) 01/15/2022 Tuberculin Skin Test, Unspecified 07/09/2021, 07/02/2021, Zoster (Shingrix-RZV, recombinant) 01/06/2018, 10/03/2017, 0 10/03/2017 Family History Medical History Relation Name Comments Asthma Father Relation Name Status Comments Father Social History Tobacco Use Types Packs/Day Years Used Date Never Smoker Smokeless Tobacco: Never Used Tobacco Cessation: Counseling Given: Yes Alcohol Use Standard Drinks/Week Comments No 0 (1 standard drink = 0.6 oz pure alcoho l) Sex Assigned at Date Recorded Not on file COVID-19 Exposure Response Date Recorded In the last 10 days, have you been in contact No / Unsure 04/08/2022 10:18 AM CDT with someone who was confirmed or suspected to have Coronavirus/COVID-19? Obstetrics History Last Filed Vital Signs Vital Sign Reading Time Taken Comments Blood Pressure 126/64 04/08/2022 10:50 AM CDT Pulse 91 04/08/2022 10:50 AM CDT Temperature 36.8 ??C (98.2 ??F) 12/13/2021 1:07 PM CDT Respiratory Rate 24 05/24/2021 11:02 AM [employer] Oxygen Saturation 96% 04/08/2022 10:50 AM CDT Inhaled Oxygen Concentration - - Weight 72.8 kg (160 lb 9.6 oz) 04/08/2022 10:50 AM CDT Height 175.3 cm (5' 9.02) 05/24/2021 11:02 AM [employer] Body Mass Index 23.71 05/24/2021 11:02 AM [employer] Plan of Treatment Health Maintenance Due Date Last Done Comments Medicare Wellness for age 65+ 09/14/2019 Pneumococcal series for age 65+ (4 09/14/2019 06/23/2014, 0 12/25/2012, - PPSV23 if available, else PCV20) 06/23/2009, A dditional history exists Tetanus booster 02/18/2022 02/19/2012, 05/11/2003, 05/11/2003 COVID-19 vaccine series (5 - 03/18/2022 01/21/2022, 022, Booster for Moderna series) 09/03/2020, Addition al history exists Fecal testing non-DNA 05/01/2022 05/01/2021, 04/03/2020, (FIT,FOBT,iFOBT) for age 45-75 11/19/2018 BMI (ht and wt on same day) for 05/24/2022 05/24/2021, 11/0 09/2020, age 18+ 03/30/2021, Additional history exists Depression screening for age 12+ 12/13/2022 12/13/2021, , 12/15/2020, Additional history exists Lipids for age 45-75 04/26/2026 04/26/2021, 05/02/2014, 05/05/2013, Additional history exists Tdap Completed 02/19/2012 Zoster (shingles) series for age Completed 01/06/2018, , 50+ 10/03/2017 Hepatitis C screening for age Completed 04/26/2021 18-79 Influenza for age 65+ Completed 04/08/2022, 03/05/2021, 02/11/2020, Additional history exists Procedures Procedure Name Priority Date/Time Associated Diagnosis Comme nts SCAN-RADIOLOGY 03/29/2022 12:00 AM Result s for this REPORT CDT procedure are i n the results section. from Last 3 Months Results SCAN-RADIOLOGY REPORT (03/29/2022 12:00 AM CDT) Narrative This result has an attachment that is no t available. Scanner OTHER from Last 3 Months Insurance Payer Benefit Plan / Subscriber ID Effective Dates Phone Addre ss Type Group MEDICARE PART A MEDICARE PART A [id number] 2015-Presen ATTN: CLAIMS - HB USE ONLY HB ONLY t [address] [facility] [place] [address] MEDICARE PART B MEDICARE PART B [id number] 2015-Presen ATTN: CLAIMS - HB USE ONLY HB ONLY t [address] [place] [address] BLUE CROSS BLUE CROSS [id number] 2017-[place]en [address] [place], [place] [id number] BLUE CROSS [place] BLUE CROSS [id number] 2017-Gianni SURESH [id number] [place], [place] [id number] Advance Directives Latest Code Status on File Code Status Date Activated Date Inactivated Comments Full Code 04/30/2021 5:43 AM 04/30/2021 10:06 AM Code Status Discussion: Reviewed Preferences Care Teams Lead Quality Control Technician Relationship Specialty Start Date End Date Ryan Cole MD PCP - General Family Practice 07/11/14 [address] [place] [address]
--- OUTSIDE RECORDS SUMMARY | 2022-04-13 11:52 | XMS_ITS | Encounter Summary ---
:1955 Author Organization [facility] Address [address] [place] [address] Care Team Providers Name Role Phone Elsewhere, Pcp Primary Care Provider Unavailable Encounter Details Date Type Department Care Team Description 03/27/2022 Hospital Encounter Department of Angélica Granger ant Liver (HCC); Laboratory Medicine J PDemetriusADurgaC. Medication Therapy Intermediate Not Anticoa gulant in [address] [phone] [place], [place] [phone] (Work) [phone] Social History Tobacco Use Types Packs/Day Years Used Date Smoking Tobacco: Never Smokeless Tobacco: Never Alcohol Use Standard Drinks/Week Comments No 0 [...] many times do you More than three angélica es a week 12/15/2021 talk on the phone with family, friends, or neighbors? How often do you get together with friends Twice a week 12/15/2021 or relatives? How often do you attend faith or More than 4 times per year 12/15/2021 congregation services? Do you belong to any clubs or No 12/15/2021 organizations such as faith groups, unions, fraternal or athletic groups, or [...] place to sleep or slept in a senior living (including now)? Education Answer Date Recorded What is the highest level of school Associate degree: jennifer reyes, 12/14/2021 you have completed or the highest technical, or vocational p beatriz degree you have received? 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 Pain. No more than 2000 mg per day. albuterol 90 Inhale 2 puffs 90 g 11 06/21/2021 mcg/actuation inhaler every 6 (six) hours as needed for wheezing. amoxicillin (AMOXIL) 500 Take 4 capsules by 0 09/2017 mg capsule mouth as directed. Prior to dental procedures aspirin 81 mg chewable Chew 81 mg daily. 0 2017 tablet atorvastatin (LIPITOR) TAKE 1 TABLET(10 90 tablet 3 021 10 mg tablet MG) BY MOUTH DAILY azelastine HCl Administer 1 mg 0 (AZELASTINE NASAL) into nostril(s) 2 (two) times a day. Alternating sides, use with sinus rinse 2 times daily. benzonatate (TESSALON Take 100 mg by 0 01/04/2021 TIKA) 100 mg capsule mouth. budesonide (PULMICORT) Add 1 respule to 8 360 mL 3 03/04 0.5 mg/2 mL nebulizer ounces saline and solution irrigate each side of nose twice daily as directed. coenzyme Q10 (CO Q-10) Take 1 capsule by 0 2017 200 mg capsule mouth daily. fluticasone propionate Administer 2 sprays 16 g 12 09/22 (FLONASE) 50 into each nostril mcg/actuation nasal daily. spray ipratropium (ATROVENT) INHALE 2 SPRAYS IN 30 mL 11 02/05 21 mcg (0.03 %) nasal EACH NOSTRIL TWICE spray DAILY, UP TO FIVE TIMES DAILY NEEDED isavuconazonium Take 2 capsules 180 capsule 0 01/21/2022 (CRESEMBA) 186 mg (372 mg total) by capsule mouth daily. ketoconazole (NIZORAL) 2 Apply 1 application 120 mL 3 % shampoo topically 3 (three) times a week. Apply to damp skin, lather, leave on 5-10 minutes, and rinse lamoTRIgine (LaMICtaL) TAKE 1 TABLET BY 200 tablet 3 022 200 mg tablet MOUTH TWICE DAILY levothyroxine TAKE 1 TABLET(25 90 tablet 3 11/27/2021 (SYNTHROID, LEVOTHROID) MCG) BY MOUTH EVERY 25 mcg MORNING BEFORE tabletIndications: BREAKFAST Transplant Liver (HCC) loratadine (CLARITIN) 10 Take 10 mg by mouth 0 mg tablet at bedtime. montelukast (SINGULAIR) Take 10 mg by mouth 0 10 mg tablet at bedtime. multivitamin renal Take 1 tablet by 30 tablet 11 05/26/2021 05/26/2022 failure (DIALYVITE) mouth daily with 100-1 mg tablet dinner. mycophenolate (CELLCEPT) Take 2 capsules 360 capsule 3 02/15 250 mg (500 mg total) by capsuleIndications: mouth 2 (two) times Transplant Liver (HCC), a day. Do not Infection break, cut, or open Cytomegalovirus (HCC), capsules. Medication Therapy Intermediate Not Anticoagulant NIFEdipine XL (PROCARDIA Take 20 mg by mouth 0 XL) 30 mg 24 hr tablet daily. ofloxacin (FLOXIN) 0.3 % Administer 5 drops 10 mL 3 otic into the right ear solutionIndications: 4 (four) times a Chondritis Pinna Right day. ondansetron (ZOFRAN) 4 Take 1 tablet (4 mg 20 tablet 0 02/2021 mg tablet total) by mouth every 8 (eight) hours as needed for nausea or vomiting. predniSONE (DELTASONE) 5 Take 1 tablet (5 mg 30 tablet 0 mg tablet total) by mouth daily. Renate-Celestine Rx 1-60-300 Take 1 tablet by 0 12/12/19 22 mg-mg-mcg tablet mouth daily with dinner. sulfamethoxazole-trimeth Take 1 tablet by 90 tablet 0 01/2104/21/2022 oprim (BACTRIM,SEPTRA) mouth daily. Take 400-80 mg per tablet after dialysis on dialysis days. torsemide (DEMADEX) 100 Take 1 tablet (100 90 tablet 3 01/21 mg tablet mg total) by mouth daily. traZODone (DESYREL) 100 Take 1 tablet (100 90 tablet 3 12/202108/27/2022 mg tablet mg total) by mouth at bedtime as needed for sleep. Trelegy Ellipta INHALE 1 PUFF BY 60 each 3 03/04/2022 200-62.5-25 mcg inhaler MOUTH DAILY voriconazole (VFEND) 200 Take 200 mg by 0 mg tablet mouth 2 (two) times a day. amoxicillin-pot Take 1 tablet by 20 tablet 0 03/22/202203/2022 clavulanate (AUGMENTIN) mouth 2 (two) times 875-125 mg per tablet a day for 10 days. tacrolimus (PROGRAF) 0.5 Take 1 capsule (0.5 180 capsule 3 0 03/15/2022 04/01/2022 mg capsuleIndications: mg total) by mouth Transplant Liver (HCC), every 12 (twelve) Medication Therapy Long hours. Term Not Anticoagulant documented as 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 [address] [place] [phone] 04/25/2022 Office Visit Otorhinolaryngology Dex Matta APRN, C.N.P., M.S.N. [address] [place] [phone] 05/08/2022 Appointment Laboratory Medicine Angélica Granger P.A.-C. [address] [place] [phone] 05/08/2022 Clinical Admitting/Central Communication Scheduling 05/10/2022 Appointment Radiology Jeremie Rose M.D. [address] [place] [phone] 05/10/2022 Comprehensive Visit Orthopedic Surgery Warner Graves M.D. [address] [place] [phone] 05/22/2022 Appointment Laboratory Medicine Angélica Granger P.A.-C. [address] [place] [phone] 06/05/2022 Appointment Laboratory Medicine Angélica Granger P.A.-C. [address] [place] [phone] 06/19/2022 Appointment Laboratory Medicine Angélica Granger P.A.-C. [address] [place] [phone] 07/03/2022 Appointment Laboratory Medicine Angélica Granger P.A.-C. [address] [place] [phone] 07/17/2022 Appointment Laboratory Medicine Angélica Granger P.A.-C. [address] [place] [phone] 07/31/2022 Appointment Laboratory Medicine Angélica Granger P.A.-C. [address] [place] [phone] 08/14/2022 Appointment Laboratory Medicine Angélica Granger P.A.-C. [address] [place] [phone] 08/28/2022 Appointment Laboratory Medicine Angélica Granger P.A.-C. [address] [place] [phone] documented as of this encounter Procedures Procedure Name Priority Date/Time Associated Diagnosis Comme nts CMV DNA DETECT/QUANT, Routine 03/27/2022 8:12 Transplant Liver Results for this P AM CDT (HCC) procedure are in Medication Therapy the resul ts Intermediate Not section. Anticoagulant TACROLIMUS LEVEL, B Routine 03/27/2022 8:12 Transplant Liver R esults for this AM CDT (HCC) procedure are in Medication Therapy the resul ts Intermediate Not section. Anticoagulant CBC WITHOUT Routine 03/27/2022 8:12 Transplant Liver Results for this DIFFERENTIAL, B AM CDT (HCC) procedure are in Medication Therapy the resul ts Tools Administrator Not section. Anticoagulant GLUCOSE, FASTING, S/P Routine 03/27/2022 8:12 Transplant Liver Results for this AM CDT (HCC) procedure are in Medication Therapy the resul ts Tools Administrator Not section. Anticoagulant COMPREHENSIVE Routine 03/27/2022 8:12 Transplant Liver Results for this METABOLIC PANEL, S/P AM CDT (HCC) procedure are in Medication Therapy the resul ts Intermediate Not section. Anticoagulant documented in this encounter Results (ABNORMAL) Tacrolimus, B (03/27/2022 8:12 AM CDT) P athologist Signature Tacrolimus, B <1.0 (L) 5.0-15.0 03/28/2022 SDSC (Trough) 11:13 AM CDT ng/mL Comment: ----ADDITIONAL INFORMATION---- Target steady-state trough concentration s vary depending on the type of transplant, concomitant immunosuppressio n, clinical/institutional protocols, and time post-transplant. Results should be interpreted in conjunction with this clinical information and any physic al signs/symptoms of rejection/toxicity. Testing performed by [employer]-Tandem Mass Spectrometry (LC-MS/MS). This test was developed and its performa nce characteristics determined by [facility] in a manner consistent with CLIA requirements. This test has not been cleared or approved by the U.S. Mer d and Drug Administration. Specimen Anatomical Collection Method Collection Time Receive d Time (Source) Location / / Volume Laterality Blood (Blood, 03/27/2022 8:12 AM 03/28/20 22 7:31 Venous) CDT AM CDT Angélica Granger P.A.-C. LAB BLOOD NON ADD-ON Performing Organization Address [facility] Phon e Number [address] [place]ILL[place], [place] [phone] MURILLO CMV DNA Detect / Quant, Plasma (03/27/2022 8:12 AM CDT) Patholo gist Method Time Signature CMV DNA Undetected Undetected 03/28/2022 [facility] Detect/Quant, IU/mL 2:45 PM CDT P Comment: Result in log IU/mL is Undetected. ----ADDITIONAL INFORMATION---- The quantification range of this assay i s 35 to 10,000,000 IU/mL (1.54 log to 7.00 log IU/mL). Testing was performed u sing the tika CMV test ([employer] with the tika 6800 System. Specimen Anatomical Collection Method Collection Time Receive d Time (Source) Location / / Volume Laterality Blood (Blood, 03/27/2022 8:12 AM 03/28/20 22 7:07 Venous) CDT AM CDT Angélica Granger P.A.-C. LAB MICROBIOLOGY - BLOOD ORD ERABLES Performing Organization Address [facility] Phon e Number [address] [place], [place] [address] SUPPORT [place], [place] [phone] [place] [address] Dr. MURILLO (ABNORMAL) Glucose, Fasting (03/27/2022 8:12 AM CDT) P athologist Signature Glucose, P 111 (H) 70 - 100 03/27/2022 [facility] mg/dL 8:37 AM CDT Last Intake 12 hr 03/27/2022 [facility] 8:14 AM CDT Specimen Anatomical Collection Method Collection Time Receive d Time (Source) Location / / Volume Laterality Blood (Blood, 03/27/2022 8:12 AM 03/27/20 8:14 Venous) CDT AM CDT Angélica Granger P.A.-C. LAB BLOOD NON ADD-ON Performing Organization Address City/State/ZIP Code Phon e Number [facility]- [address] [place] [id number] [place] [address] System in [address] (ABNORMAL) Comprehensive Metabolic Panel (03/27/2022 8:12 AM CDT) Analysis Performed At Patho logist Time Signature Potassium, P 3.8 3.6 - 5.2 03/27/2022 [facility] mmol/L 8:40 AM CDT Sodium, P 134 (L) 135 - 145 03/27/2022 [facility] mmol/L 8:40 AM CDT Chloride, P 96 (L) 98 - 107 03/27/2022 [facility] mmol/L 8:40 AM CDT Bicarbonate, P 25 22 - 29 03/27/2022 [facility] mmol/L 8:40 AM CDT Anion Gap, P 13 7 - 15 03/27/2022 [facility] 8:40 AM CDT BUN (Blood Urea 37 (H) 8 - 24 03/27/2022 [facility] Nitrogen), P mg/dL 8:40 AM CDT Creatinine 3.09 (H) 0.74 - 03/27/2022 [facility] 1.35 mg/dL 8:40 AM CDT Estimated GFR 21 (L) >=60 03/27/2022 [facility] (eGFR) mL/min/BSA 8:40 AM CDT Comment: Estimated GFR calculated using the 2020 CKD_EPI creatinine equation. Calcium, Total, P 8.8 8.8 - 10.2 mg/dL 03/27/2022 8:40 AM CDT CN[facility] Glucose, P CANCELED mg/dL 03/27/2022 8:14 AM CDT CNFL Comment: Duplicate test request. Result canceled by the ancillary. Protein, Total, P 6.8 6.3 - 7.9 g/dL 03/27/2022 8:40 A M CDT [facility] Albumin, P 4.1 3.5 - 5.0 g/dL 03/27/2022 8:40 AM CDT C NFL Aspartate Aminotransferase 22 8 - 48 U/L 03/27/2022 8 :40 AM CDT [facility] (AST), P Alkaline Phosphatase, P 150 (H) 40 - 129 U/L 03/27/2022 8: 40 AM CDT [facility] Alanine Aminotransferase 21 7 - 55 U/L 03/27/2022 8:4 0 AM CDT CN[facility] (ALT), P Bilirubin, Total, P 0.4 <=1.2 mg/dL 03/27/2022 8:40 AM CDT CN[facility] Specimen Anatomical Collection Method Collection Time Receive d Time (Source) Location / / Volume Laterality Blood (Blood, 03/27/2022 8:12 AM 03/27/20 8:14 Venous) CDT AM CDT Angélica Granger P.A.-C. LAB BLOOD ADD-ON Performing Organization Address [facility]/State/[facility] Phon e Number [address] [place] [phone] System in [address] (ABNORMAL) CBC without Differential (03/27/2022 8:12 AM CDT) [facility] gist Method Time Signature Hemoglobin 10.6 (L) 13.2 - 03/27/2022 [facility] 16.6 g/dL 8:57 AM CDT Hematocrit 32.7 (L) 38.3 - 03/27/2022 [facility] 48.6 % 8:57 AM CDT Erythrocytes 3.28 (L) 4.35 - 03/27/2022 [facility] 5.65 8:57 AM CDT x10(12)/L MCV 99.7 (H) 78.2 - 03/27/2022 [facility] 97.9 fL 8:57 AM CDT RBC Distrib Width 13.5 11.8 - 03/27/2022 [facility] 14.5 % 8:57 AM CDT Platelet Count 299 135 - 317 03/27/2022 [facility] x10(9)/L 8:57 AM CDT Leukocytes 6.1 3.4 - 9.6 03/27/2022 CN[facility] x10(9)/L 8:57 AM CDT Specimen Anatomical Collection Method Collection Time Receive d Time (Source) Location / / Volume Laterality Blood (Blood, 03/27/2022 8:12 AM 03/27/20 22 8:14 Venous) CDT AM CDT Angélica Granger P.A.-C. LAB BLOOD ADD-ON Performing Organization Address City/State/[facility] Code Phon e Number [facility]- [address] [place] [phone] [place] [address] System in [address] documented in this encounter Visit Diagnoses Diagnosis Transplant Liver (HCC) Medication Therapy Intermediate Not Anticoa gulant documented in this encounter Additional Health Concerns Assessment Noted Time PHQ-9 Depression Total Score: 4 11/28/2020 10:17 AM CD T documented as of this encounter Care Teams Online Project Manager Relationship Specialty Start Date End Date Elsewhere, Pcp PCP - General Family Medicine 07/29/17 [facility] - Laboratory Medicine 04/12/20 [place] [phone] documented as of this encounter
--- OUTSIDE RECORDS SUMMARY | 2022-04-13 11:52 | XMS_ITS | Encounter Summary ---
:1955 Author Organization [facility] Address [address] [place] [address] Care Team Providers Name Role Phone Elsewhere, Pcp Primary Care Provider Unavailable Reason for Visit Reason Comments Labs Only Encounter Details Date Type Department Care Team Description 04/11/2022 Clinical Communication Curt Lopez, Labs Only Center for Lilia Azevedo R.N., Transplantation and C.C.T.C. Clinical Regeneration in [phone] [place], [place] (Work) [address] [place] [phone] Social History Tobacco Use Types Packs/Day Years [...] or relatives? How often do you attend alevism or More than 4 times per year 12/15/2021 pentecostal services? Do you belong to any clubs or No 12/15/2021 organizations such as alevism groups, unions, fraternal or athletic groups, or [...] minutes do you engage in exercise at is 20 min 12/15/2021 level? Stress Answer [...] place to sleep or slept in a skilled nursing (including now)? Education Answer Date Recorded What is the highest level of school Associate degree: jennifer reyes, 12/14/2021 you have completed or the highest technical, or vocational p beatriz degree you have received? 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 - 04/12/2022 8:34 AM CDT Provider who reviewed results: Dr. Emmanuel Recommendations: No changes Labs are due 3 months Patient Online Services message was initiated by a [facility] Registered Nurse for report of test results and recommendations. Telephone Encounter - Lilia Hdz R.N., C.C.T.C. - 04/11/2022 1:15 PM CDT Please review labs below. 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 Current Medications & Recent Dose Changes: Tacrolimus 1 mg BID Labs: Recent Labs 04/10/22 0820 03/27/22 0812 03/20/22 0812 03/13/22 0800 02/27/22 0807 02/20/22 0813 TACROLIMUS 1.2 L <1.0 L <1.0 L 1.5 L 1.8 L 1.7 L Recent Labs 04/10/22 0820 03/27/22 0812 03/20/22 0813 HGB 9.8 L 10.6 L 11.0 L HCT 30.0 L 32.7 L 34.7 L WBC 10.6 H 6.1 10.2 H PLT 314 299 253 NA 133 L 134 L 132 L KPLASMA 3.8 3.8 3.9 GLUCOSE CANCELED 119 H CANCELED 111 H CANCELED 124 H BUN 54 H 37 H 31 H CREATININE 3.03 H 3.09 H 3.16 H EGFR 22 L 21 L 21 L ALKPHOS 126 150 H 178 H AST 17 22 30 ALT 14 21 42 BILITOT 0.3 0.4 0.4 ALBUMIN 4.1 4.1 4.2 Serologies: Recent Labs 04/10/22 0821 03/27/22 0812 03/20/22 0812 03/13/22 0800 CMVQUANT <35 A Undetected <35 A Undetected No results for input(s): EBVDNADETQUP, EBVDNADETQUA, EBVQU, EBVCOPIES, EBVPCRQUANT in the last 2190 hours. No lab exists for component: SEBV No results for input(s): HEPBANTSCRN, HEPBSABPREN, HEPBSABSCRN, HEPBCABTPREN, HEPBCABSCRN, HEPBCABSCRN, HEPBCABSCRN, HCV, BKPCR in the last 2190 hours. No lab exists for component: HCSRN, HBVQU, HCVDX, HIVDQ, HIVQU, HIVDX, COXIS, COCQ, CIMRP, QBK, TOXGP, TXM, RPRS, QFT4 Immunosuppression Goal Range: 1.5-4 Current Lab Frequency: every 3 months and as directed Please advise on any changes or recommendations. Thanks, Lilia dHz R.N., C.C.T.C. *All labs are now found in [facility] - Lab - Flowsheets. For further review of labs, please review there or under Synopsis* documented in this encounter Plan of Treatment Upcoming Encounters Date Type Specialty Care Team Description 04/24/2022 Appointment Laboratory Medicine Angélica Granger P.A.-C. [address] [place] [phone] 04/25/2022 Office Visit Otorhinolaryngology Dex Matta APRN CDemetriusNDemetriusPDemetrius, M.S.N. [address] [place] [phone] 05/08/2022 Appointment Laboratory Medicine Angélica Granger P.A.-C. [address] [place] [phone] 05/08/2022 Clinical Admitting/Central Communication Scheduling 05/10/2022 Appointment Radiology Jeremie Rose M.D. [address] [place] [phone] 05/10/2022 Comprehensive Visit Orthopedic Surgery Warner Graves M.D. [address] [place] [phone] 05/22/2022 Appointment Laboratory Medicine Angélica Granger P.A.-C. [address] [place] [phone] 06/05/2022 Appointment Laboratory Medicine Angélica Granger P.A.-C. [address] [place] [phone] 06/19/2022 Appointment Laboratory Medicine Angélica Granger P.A.-C. [address] [place] [phone] 07/03/2022 Appointment Laboratory Medicine Angélica Granger P.A.-C. [address] [place] [phone] 07/17/2022 Appointment Laboratory Medicine Angélica Granger P.A.-C. [address] [place] [phone] 07/31/2022 Appointment Laboratory Medicine Angélica Granger P.A.-C. [address] [place] [phone] 08/14/2022 Appointment Laboratory Medicine Angélica Granger P.A.-C. [address] [place] [phone] 08/28/2022 Appointment Laboratory Medicine Angélica Granger P.A.-C. [address] [place] [phone] documented as of this encounter Visit Diagnoses Not on filedocumented in this encounter Additional Health Concerns Assessment Noted Time PHQ-9 Depression Total Score: 4 11/28/2020 10:17 AM CD T documented as of this encounter Care Teams Eight Section Blower Relationship Specialty Start Date End Date Elsewhere, Pcp PCP - General Family Medicine 07/29/17 [facility] - Laboratory Medicine 04/12/[address] [phone] documented as of this encounter
--- OUTSIDE RECORDS SUMMARY | 2022-04-13 11:52 | XMS_ITS | Encounter Summary ---
:1955 Author Organization [facility] Address [address] [place] [address] Care Team Providers Name Role Phone Elsewhere, Pcp Primary Care Provider Unavailable Reason for Visit Reason Comments Txp Tacrolimus Adjustment Protocol - Liver Encounter Details Date Type Department Care Team Description 03/21/2022 Clinical Curt Corral T[facility] Communication Center for hLilia, Adjustment Transplantation and RDemetriusNDemetrius, Protocol - Liver Clinical Regeneration C.C.T.C. in [facility] [place] [phone] [address] [facility] (Work) [place] [phone] Social History Tobacco Use Types Packs/Day Years [...] or relatives? How often do you attend yarsanism or More than 4 times per year 12/15/2021 gnosticist services? Do you belong to any clubs or No 12/15/2021 organizations such as yarsanism groups, unions, fraternal or athletic groups, or [...] place to sleep or slept in a custodial (including now)? Education Answer Date Recorded What is the highest level of school Associate degree: jennifer reyes, 12/14/2021 you have completed or the highest technical, or vocational p beatriz degree you have received? 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 - 03/21/2022 9:30 AM CDT Images from the original note were not included. Tacrolimus level within goal range of Active Patient Thresholds Lab Low High Effective Since Comment Tacrolimus Level 1.5 4 09/21/2021 Recent Tacrolimus Values 01/16/2022 01/23/2022 01/30/2022 02/06/2022 02/13/2022 02/20/2022 02/27/2022 03/13/2022 8:09 AM 8:11 AM 8:04 AM 8:06 AM 7:47 AM 8:13 AM 8:07 AM 8:00 AM Tacrolimus 2.2 1.4 (T) 2.7 1.5 1.2 (T) 1.7 1.8 1.5 per Tacrolimus Adjustment Protocol no dose change recommended. Other lab results received and reviewed, stable trends, continue monitoring every 3 months. documented in this encounter Plan of Treatment Upcoming Encounters Date Type Specialty Care Team Description 04/24/2022 Appointment Laboratory Medicine Angélica Granger P.A.-C. [address] [place] [phone] 04/25/2022 Office Visit Otorhinolaryngology Dex Matta APRN CDemetriusNDemetriusPDemetrius, M.S.N. [address] [place] [phone] 05/08/2022 Appointment Laboratory Medicine Angélica Granger P.A.-C. [address] [place] [phone] 05/08/2022 Clinical Admitting/Central Communication Scheduling 05/10/2022 Appointment Radiology Jeremie Rose M.D. [address] [place] [phone] 05/10/2022 Comprehensive Visit Orthopedic Surgery Warner Graves M.D. [address] [place] [phone] 05/22/2022 Appointment Laboratory Medicine Angélica Granger P.A.-C. [address] [place] [phone] 06/05/2022 Appointment Laboratory Medicine Angélica Granger P.A.-C. [address] [place] [phone] 06/19/2022 Appointment Laboratory Medicine Angélica Granger P.A.-C. [address] [place] [phone] 07/03/2022 Appointment Laboratory Medicine Angélica Granger P.A.-C. [address] [place] [phone] 07/17/2022 Appointment Laboratory Medicine Angélica Granger P.A.-C. [address] [place] [phone] 07/31/2022 Appointment Laboratory Medicine Angélica Granger P.A.-C. [address] [place] [phone] 08/14/2022 Appointment Laboratory Medicine Angélica Granger P.A.-C. [address] [place] [phone] 08/28/2022 Appointment Laboratory Medicine Angélica Granger P.A.-C. [address] [place] [phone] documented as of this encounter Visit Diagnoses Not on filedocumented in this encounter Additional Health Concerns Assessment Noted Time PHQ-9 Depression Total Score: 4 11/28/2020 10:17 AM CD T documented as of this encounter Care Teams Patient Access Coordinator Relationship Specialty Start Date End Date Elsewhere, Pcp PCP - General Family Medicine 07/29/17 [facility] - Laboratory Medicine 04/12/[address] [address] documented as of this encounter
--- OUTSIDE RECORDS SUMMARY | 2022-04-13 11:52 | XMS_ITS | Encounter Summary ---
:1955 Author Organization [facility] Address [address] [place] [address] Care Team Providers Name Role Phone Elsewhere, Pcp Primary Care Provider Unavailable Encounter Details Date Type Department Care Team Description 03/22/2022 Orders Only Department of Óscar Ramirez, Otorhinolaryngology in .Demetrius [place], [place] [address] [facility] [address] [place] [phone] Social History Tobacco Use Types Packs/Day Years [...] or relatives? How often do you attend mosque or More than 4 times per year 12/15/2021 protestant services? Do you belong to any clubs or No 12/15/2021 organizations such as mosque groups, unions, fraternal or athletic groups, or [...] place to sleep or slept in a longterm (including now)? Education Answer Date Recorded What is the highest level of school Associate degree: jennifer reyes, 12/14/2021 you have completed or the highest technical, or vocational p beatriz degree you have received? 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 [address] [place] [phone] 05/08/2022 Appointment Laboratory Medicine Angélica Granger P.A.-CDemetrius [address] [place] [phone] 05/08/2022 Clinical Admitting/Central Communication Scheduling 05/10/2022 Appointment Radiology Jeremie Rose M.D. [address] [place] [phone] 05/10/2022 Comprehensive Visit Orthopedic Surgery Warner Graves M.D. [address] [place] [address] [phone] 05/22/2022 Appointment Laboratory Medicine Angélica Granger P.A.-C. [address] [place] [phone] 06/05/2022 Appointment Laboratory Medicine Angélica Granegr P.A.-C. [address] [place] [phone] 06/19/2022 Appointment Laboratory Medicine Angélica Granger P.A.-C. [address] [place] [phone] 07/03/2022 Appointment Laboratory Medicine Angélica Granger P.A.-C. [address] [place] [phone] 07/17/2022 Appointment Laboratory Angélica Royal P.A.-C. [address] [place] [phone] 07/31/2022 Appointment Laboratory Medicine Angélica Granger P.A.-C. [address] [place] [phone] 08/14/2022 Appointment Laboratory Angélica Royal P.A.-C. [address] [place] [phone] 08/28/2022 Appointment Laboratory Medicine Angélica Granger P.A.-C. [address] [place] [address] [phone] documented as of this encounter Visit Diagnoses Not on filedocumented in this encounter Additional Health Concerns Assessment Noted Time PHQ-9 Depression Total Score: 4 11/28/2020 10:17 AM CD T documented as of this encounter Care Teams Buckle Attaching Machine Operator Relationship Specialty Start Date End Date Elsewhere, Pcp PCP - General Family Medicine 07/29/17 [facility] - Laboratory Medicine 04/12/20 [place] [address] documented as of this encounter
--- OUTSIDE RECORDS SUMMARY | 2022-04-13 11:52 | XMS_ITS | Encounter Summary ---
:1955 Author Organization [facility] Address [address] [place] [address] Care Team Providers Name Role Phone Elsewhere, Pcp Primary Care Provider Unavailable Reason for Visit Outpatient (Routine) - Closed Specialty Diagnoses / Procedures Referred By Contact Refer red To Contact Otorhinolaryngology Toro Pena M.D . [facility] 200 [place] [address] Referral ID Status Reason Start Date Expiration Date Visits Requ ested Visits Authorized [id number] Closed 08/28/2021 08/28/2022 1 1 Encounter Details Date Type Department Care Team Description 03/22/2022 Office Visit Department of Jaxson Churchill Sinusitis Recu rrent (Primary Dx); Otorhinolaryngology in D, P.A.-C., Chron ic Cough; [place], [place] M.S., M.P.H. Drip Post Nasal; 200 [facility] 200 [facility] [place] [address] [place], [place] [phone] Social History Tobacco Use Types Packs/Day Years [...] or relatives? How often do you attend spiritism or More than 4 times per year 12/15/2021 uatsdin services? Do you belong to any clubs or No 12/15/2021 organizations such as spiritism groups, unions, fra500Friends or athletic groups, or school groups? How [...] place to sleep or slept in a fdc (including now)? Education Answer Date Recorded What is the highest level of school Associate degree: jennifer reyes, 12/14/2021 you have completed or the highest technical, or vocational p [facility] degree you have received? 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 - 03/22/2022 8:15 AM CDT SUBJECTIVE CHIEF COMPLAINT / REASON FOR VISIT Headache REFERRING PROVIDER Toro Pena M.D. HISTORY OF PRESENT ILLNESS Mr. Singh is a 66 [address] Pena. Has a history of chronic rhinosinusitis in his statuspost functional endoscopic sinus surgery and bilateral inferior turbinate reduction on 07/26/2021. Laurent asked to see him today for evaluation of headache. Patient reports worsening sinus pressure over the past two weeks with sharp frontal headaches. He also reports worsening postnasal drainage leading to cough. OBJECTIVE PHYSICAL EXAMINATION General: Alert, interactive 66 y.o. male, in no acute distress. Head: Normocephalic, atraumatic. Face: House-Brackmann I/ bilaterally. Eyes: Extraocular movements intact. No nystagmus is appreciated. The sclera are without injection. Ears: External auditory canals are clear. Tympanic membranes are intact. Serous fluid noted in the left middle ear. Patient is able to insufflate the middle ear with valsalva. Nose: Nasal cavities are without masses or discharge on anterior rhinoscopy. Unable to visualize theparanasal sinus cavities and posterior nasal cavity on anterior rhinoscopy. Pulmonary: Significant wet cough. PROCEDURE NOTE Procedure: Nasal endoscopy Pre-procedure diagnosis/Indication for procedure: To evaluate areas not seen on anterior rhinoscopy.The patient provided verbal consent to the procedure. Anesthesia: 0.5% phenylephrine & 2% lidocaine topical spray Description: A flexible nasal endoscope was used to examine the left and right nasal cavities. Findings: Postsurgical changes from endoscopic sinus surgery noted bilaterally. There are yellow green crusts and purulent drainage in the bilateral maxillary sinuses and ethmoid cavities with purulent drainage through the nasopharynx. Purulence was swabbed from the right ethmoid cavity and sent for culture. ASSESSMENT / PLAN #1 Sinusitis Recurrent #2 Chronic Cough #3 Drip Post Nasal #4 Headache Daily Findings discussed with patient. There is evidence of recurrent sinusitis. Purulence was swabbed from the right ethmoid cavity and sent for culture. I offered to initiate treatment with Augmentin but patient has previously developed C difficile infections from oral antibiotics. I will send the results of this culture to Dr. Pena's team for consideration of topical antibiotics added to patient's sinus rinse bottle instead. I discussed the multifactorial nature of headaches with patient. If he continues to experience a headache following treatment of his recurrent sinusitis I would recommend patientfollow- up with PCP or consider a consultation in the Neurology headache clinic. documented in this encounter Plan of Treatment Upcoming Encounters Date Type Specialty Care Team Description 04/24/2022 Appointment Laboratory Medicine Angélica Granger P.A.-C. [address] [place] [phone] 04/25/2022 Office Visit Otorhinolaryngology Dex Matta APRN CDemetriusNDemetriusPDemetrius, M.S.N. [address] [place] [phone] 05/08/2022 Appointment Laboratory Medicine Angélica Granger P.A.-C. [address] [place] [phone] 05/08/2022 Clinical Admitting/Central Communication Scheduling 05/10/2022 Appointment Radiology Jeremie Rose M.D. [address] [place] [phone] 05/10/2022 Comprehensive Visit Orthopedic Surgery Warner Graves M.D. [address] [place] [phone] 05/22/2022 Appointment Laboratory Medicine Angélica Granger P.A.-C. [address] [place] [phone] 06/05/2022 Appointment Laboratory Medicine Angélica Granger P.A.-C. [address] [place] [phone] 06/19/2022 Appointment Laboratory Medicine Angélica Granger P.A.-C. [address] [place] [phone] 07/03/2022 Appointment Laboratory Medicine Angélica Granger P.A.-C. [address] [place] [phone] 07/17/2022 Appointment Laboratory Medicine Angélica Granger P.A.-C. [address] [place] [phone] 07/31/2022 Appointment Laboratory Medicine Angélica Granger P.A.-C. [address] [place] [phone] 08/14/2022 Appointment Laboratory Medicine Angélica Granger P.A.-C. [address] [place] [phone] 08/28/2022 Appointment Laboratory Medicine Angélica Granger P.A.-C. [address] [place] [phone] documented as of this encounter Procedures Procedure Name Priority Date/Time Associated Diagnosis Comme nts BACTERIAL CULTURE, Routine 03/22/2022 8:13 AM Sinusitis Recurr ent Results for this AEROBIC + SUSC CDT procedure are in the results section. documented in this encounter Results (ABNORMAL) Bacterial Culture, Aerobic + Susc (03/22/2022 8:13 AM CDT) Component Value Ref Test Analysis Performed At [facility] Range Method Time Signature Bacterial STAPHYLOCOCCUS AUREUS [...] Organization Address City/State/ZIP Code Phon e Number [facility] - [address] [place], [place] [address] [facility] [place] [address] [facility] [address] documented in this encounter Visit Diagnoses Diagnosis Sinusitis Recurrent - Primary Chronic Cough Drip Post Nasal Headache Daily documented in this encounter Additional Health Concerns Assessment Noted Time PHQ-9 Depression Total Score: 4 11/28/2020 10:17 AM CD T documented as of this encounter Care Teams Water Valve Repairer Relationship Specialty Start Date End Date Elsewhere, Pcp PCP - General Family Medicine 07/29/17 [facility] - Laboratory Medicine 04/12/20 [place] [address] documented as of this encounter
--- OUTSIDE RECORDS SUMMARY | 2022-04-13 11:52 | XMS_ITS | Encounter Summary ---
:1955 Author Organization [facility] Address [address] [place] [address] Care Team Providers Name Role Phone Elsewhere, Pcp Primary Care Provider Unavailable Encounter Details Date Type Department Care Team Description 04/10/2022 Hospital Encounter Department of Angéliac Granger ant Liver (HCC); Laboratory Medicine J PDemetriusADurgaC. Medication Therapy Gyroscope Repairer Not Anticoa gulant in [address] [phone] [place], [place] [phone] (Work) [phone] Social History Tobacco Use Types Packs/Day Years [...] or relatives? How often do you attend jainism or More than 4 times per year 12/15/2021 anabaptist services? Do you belong to any clubs or No 12/15/2021 organizations such as jainism groups, unions, fraternal or athletic groups, or [...] place to sleep or slept in a long-term (including now)? Education Answer Date Recorded What is the highest level of school Associate degree: jennifer reyes, 12/14/2021 you have completed or the highest technical, or vocational p beatriz degree you have received? 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 Medication Therapy [facility] Not Anticoagulant NIFEdipine XL (PROCARDIA Take 20 [...] per tablet after dialysis on dialysis days. tacrolimus (PROGRAF) 0.5 Take 2 capsules (1 360 capsule 3 mg capsuleIndications: mg total) by mouth Transplant Liver (HCC), every 12 (twelve) Medication Therapy Long hours. Term Not Anticoagulant torsemide (DEMADEX) 100 Take 1 tablet (100 [...] tablet mouth 2 (two) times a day. documented as 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 [address] [place] [phone] 04/25/2022 Office Visit Otorhinolaryngology Dex Matta APRN, C.N.P., M.S.N. [address] [place] [phone] 05/08/2022 Appointment Laboratory Medicine Angélica Granger P.A.-CDemetrius [address] [place] [phone] 05/08/2022 Clinical Admitting/Central Communication Scheduling 05/10/2022 Appointment Radiology Jeremie Rose M.D. [address] [place] [phone] 05/10/2022 Comprehensive Visit Orthopedic Surgery Warner Graves M.D. [address] [place] [phone] 05/22/2022 Appointment Laboratory Medicine Angélica Granger P.A.-C. [address] [place] [phone] 06/05/2022 Appointment Laboratory Medicine Angélica rGanger P.A.-C. [address] [place] [phone] 06/19/2022 Appointment Laboratory Medicine Angélica Granger P.A.-C. [address] [place] [phone] 07/03/2022 Appointment Laboratory Medicine Angélica Granger P.A.-C. [address] [place] [phone] 07/17/2022 Appointment Laboratory Medicine Angélica Granger P.A.-C. [address] [place] [phone] 07/31/2022 Appointment Laboratory Medicine Angélica Granger P.A.-C. [address] [place] [phone] 08/14/2022 Appointment Laboratory Medicine Angélica Granger P.A.-C. [address] [place] [phone] 08/28/2022 Appointment Laboratory Medicine Angélica Granger P.A.-C. [address] [place] [phone] documented as of this encounter Procedures Procedure Name Priority Date/Time Associated Diagnosis Comme nts CMV DNA DETECT/QUANT, Routine 04/10/2022 8:21 Transplant Liver Results for this P AM CDT (HCC) procedure are in Medication Therapy the resul ts [facility] Not section. Anticoagulant TACROLIMUS LEVEL, B Routine 04/10/2022 8:20 Transplant Liver R esults for this AM CDT (HCC) procedure are in Medication Therapy the resul ts [facility] Not section. Anticoagulant CBC WITHOUT Routine 04/10/2022 8:20 Transplant Liver Results for this DIFFERENTIAL, B AM CDT (HCC) procedure are in Medication Therapy the resul ts Gyroscope Repairer Not section. Anticoagulant GLUCOSE, FASTING, S/P Routine 04/10/2022 8:20 Transplant Liver Results for this AM CDT (HCC) procedure are in Medication Therapy the resul ts Gyroscope Repairer Not section. Anticoagulant COMPREHENSIVE Routine 04/10/2022 8:20 Transplant Liver Results for this METABOLIC PANEL, S/P AM CDT (HCC) procedure are in Medication Therapy the resul ts [facility] Not section. Anticoagulant documented in this encounter Results (ABNORMAL) CMV DNA Detect / Quant, Plasma (04/10/2022 8:21 AM CDT) [facility] Method Time Signature CMV DNA <35 (A) Undetected 04/11/2022 [facility] Detect/Quant, IU/mL 1:09 PM CDT P Comment: [...] performed u sing the tika CMV test ([employer] with the tika Jobr0 System. Specimen Anatomical Collection Method Collection Time Receive d Time (Source) Location / / Volume Laterality Blood (Blood, 04/10/2022 8:21 AM 04/11/20 7:06 Venous) CDT AM CDT Angélica Granger P.A.-C. LAB MICROBIOLOGY - BLOOD ORD ERABLES Performing Organization Address [facility] Phon e Number [address] MURILLO [place], [place] [address] [address] [place], [place] [phone] [place] [address] Dr. MURILLO (ABNORMAL) Tacrolimus, B (04/10/2022 8:20 AM CDT) P athologist Signature Tacrolimus, B 1.2 (L) 5.0-15.0 04/11/2022 [facility] (Trough) 11:25 AM CDT ng/mL Comment: ----ADDITIONAL INFORMATION---- Target steady-state trough concentration s vary depending on the type of transplant, concomitant immunosuppressio n, clinical/institutional protocols, and time post-transplant. Results should be interpreted in conjunction with this clinical information and any physic al signs/symptoms of rejection/toxicity. Testing performed by Liquid Chromatograp hy-Tandem Mass Spectrometry (LC-MS/MS). This test was developed and its performa nce characteristics determined by [facility] in a manner consistent with CLIA requirements. This test has not been cleared or approved by the U.S. Mer d and Drug Administration. Specimen Anatomical Collection Method Collection Time Receive d Time (Source) Location / / Volume Laterality Blood (Blood, 04/10/2022 8:20 AM 04/11/20 7:27 Venous) CDT AM CDT Angélica Granger P.A.-C. LAB BLOOD NON ADD-ON Performing Organization Address City/[facility] Phon e Number [address] MURILLO [place], [place] [address] [address] [place], [place] [phone] [place] [address] Dr. MURILLO (ABNORMAL) Glucose, Fasting (04/10/2022 8:20 AM CDT) P athologist Signature Glucose, P 119 (H) 70 - 100 04/10/2022 [facility] mg/dL 8:41 AM CDT Last Intake 11 hr 04/10/2022 [facility] 8:22 AM CDT Specimen Anatomical Collection Method Collection Time Receive d Time (Source) Location / / Volume Laterality Blood (Blood, 04/10/2022 8:20 AM 04/10/20 8:22 Venous) CDT AM CDT Angélica Granger P.A.-C. LAB BLOOD NON ADD-ON Performing Organization Address City/State/ZIP Code Phon e Number [facility]- [address] [place] [phone] [place] [address] System in [address] (ABNORMAL) Comprehensive Metabolic Panel (04/10/2022 8:20 AM CDT) Analysis Performed At Patho logist [...] AM 04/10/20 8:22 Venous) CDT AM CDT Angélica Granger P.A.-C. LAB BLOOD ADD-ON Performing Organization Address City/State/[facility] Code Phon e Number [phone] [place] [address] [place] [address] System in [address] (ABNORMAL) CBC without Differential (04/10/2022 8:20 AM CDT) [facility] Method Time Signature Hemoglobin 9.8 (L) 13.2 [...] AM 04/10/20 8:22 Venous) CDT AM CDT Angélica Granger P.A.-C. LAB BLOOD ADD-ON Performing Organization Address City/State/[facility] Code Phon e Number [facility]- [address] [place] [address] Bl[address] [place], [place] [phone] [place] [address] [place] [address] System [address] documented in this encounter Visit Diagnoses Diagnosis Transplant Liver (HCC) Medication Therapy [facility] Not Anticoa gulant documented in this encounter Additional Health Concerns Assessment Noted Time PHQ-9 Depression Total Score: 4 11/28/2020 10:17 AM CD T documented as of this encounter Care Teams Laser Beam Color Scanner Operator Relationship Specialty Start Date End Date Elsewhere, Pcp PCP - General Family Medicine 07/29/17 [facility] - Laboratory Medicine 04/12/[address] [address] documented as of this encounter
--- OUTSIDE RECORDS SUMMARY | 2022-04-13 11:52 | XMS_ITS | Encounter Summary ---
:1955 Author Organization [facility] Address [address] [place] [address] Care Team Providers Name Role Phone Elsewhere, Pcp Primary Care Provider Unavailable Reason for Visit Reason Comments Pre-visit Intake Encounter Details Date Type Department Care Team Description 03/21/2022 Clinical Communication Visit Review in Pr e-visit Intake [place], [place] [address] [place], [place] [address] Social History Tobacco Use Types Packs/Day Years [...] or relatives? How often do you attend pentecostalism or More than 4 times per year 12/15/2021 taoist services? Do you belong to any clubs or No 12/15/2021 organizations such as pentecostalism groups, unions, fraternal or athletic groups, or [...] place to sleep or slept in a mcfp (including now)? Education Answer Date Recorded What is the highest level of school Associate degree: jennifer reyes, 12/14/2021 you have completed or the highest technical, or vocational p beatriz degree you have received? 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 [address] [place] [phone] 04/25/2022 Office Visit Otorhinolaryngology Dex Matta APRN, C.N.P., M.S.N. [address] [place] [phone] 05/08/2022 Appointment Laboratory Medicine Angélica Granger P.A.-CDemetrius [address] [place] [phone] 05/08/2022 Clinical Admitting/Central Communication Scheduling 05/10/2022 Appointment Radiology Jeremie Rose M.D. [address] [place] [phone] 05/10/2022 Comprehensive Visit Orthopedic Surgery Warner Graves M.D. [address] [place] [address] [phone] 05/22/2022 Appointment Laboratory Medicine Angélica Granger P.A.-C. [address] [place] [address] [phone] 06/05/2022 Appointment Laboratory Medicine Angélica Granger P.A.-C. [address] [place] [phone] 06/19/2022 Appointment Laboratory Medicine Angélica Granger P.A.-C. [address] [place] [phone] 07/03/2022 Appointment Laboratory Medicine Angélica Granger P.A.-C. [address] [place] [phone] 07/17/2022 Appointment Laboratory Medicine Angélica Granger P.A.-C. [address] [place] [phone] 07/31/2022 Appointment Laboratory Medicine Angélica Granger P.A.-C. [address] [place] [phone] 08/14/2022 Appointment Laboratory Medicine Angélica Granger P.A.-C. [address] [place] [phone] 08/28/2022 Appointment Laboratory Medicine Angélica Granger P.A.-C. [address] [place] [phone] documented as of this encounter Visit Diagnoses Not on filedocumented in this encounter Additional Health Concerns Assessment Noted Time PHQ-9 Depression Total Score: 4 11/28/2020 10:17 AM CD T documented as of this encounter Care Teams Billet Recorder Relationship Specialty Start Date End Date Elsewhere, Pcp PCP - General Family Medicine 07/29/17 [facility] - Laboratory Medicine 04/12/[address] [address] documented as of this encounter
--- OUTSIDE RECORDS SUMMARY | 2022-04-13 11:52 | XMS_ITS ---
:1955 Author Organization [facility] Address [address] [place] [address] Care Team Providers Name Role Phone Elsewhere, Pcp Primary Care Provider Unavailable Procedures Procedure Name Priority Date/Time Associated Comments Diagnosis CMV DNA DETECT/QUANT, P Routine 04/10/2022 Transplant Liver Results for 8:21 AM CDT (HCC) this Medication Therapy procedure are Table Assembler Metal Not in the Anticoagulant results section. TACROLIMUS LEVEL, B Routine 04/10/2022 Transplant Liver Resu lts for 8:20 AM CDT (HCC) this Medication Therapy procedure are Table Assembler Metal Not in the Anticoagulant results section. GLUCOSE, FASTING, S/P Routine 04/10/2022 Transplant Liver Re sults for 8:20 AM CDT (HCC) this Medication Therapy procedure are Table Assembler Metal Not in the Anticoagulant results section. COMPREHENSIVE METABOLIC Routine 04/10/2022 Transplant Liver Results for PANEL, S/P 8:20 AM CDT (HCC) this Medication Therapy procedure are Table Assembler Metal Not in the Anticoagulant results section. CBC WITHOUT Routine 04/10/2022 Transplant Liver Results for DIFFERENTIAL, B 8:20 AM CDT (HCC) this Medication Therapy procedure are Table Assembler Metal Not in the Anticoagulant results section. TACROLIMUS LEVEL, B Routine 03/27/2022 Transplant Liver Resu lts for 8:12 AM CDT (HCC) this Medication Therapy procedure are Retirement Not in the Anticoagulant results section. GLUCOSE, FASTING, S/P Routine 03/27/2022 Transplant Liver Re sults for 8:12 AM CDT (HCC) this Medication Therapy procedure are Table Assembler Metal Not in the Anticoagulant results section. COMPREHENSIVE METABOLIC Routine 03/27/2022 Transplant Liver Results for PANEL, S/P 8:12 AM CDT (HCC) this Medication Therapy procedure are Table Assembler Metal Not in the Anticoagulant results section. CBC WITHOUT Routine 03/27/2022 Transplant Liver Results for DIFFERENTIAL, B 8:12 AM CDT (HCC) this Medication Therapy procedure are Retirement Not in the Anticoagulant results section. CMV DNA DETECT/QUANT, P Routine 03/27/2022 Transplant Liver Results for 8:12 AM CDT (HCC) this Medication Therapy procedure are Table Assembler Metal Not in the Anticoagulant results section. OTORHINOLARYNGOLOGY [...] CDT (HCC) this Medication Therapy procedure are Table Assembler Metal Not in the Anticoagulant results section. COMPREHENSIVE METABOLIC Routine 03/20/2022 Transplant Liver Results for PANEL, S/P 8:13 AM CDT (HCC) this Medication Therapy procedure are Table Assembler Metal Not in the Anticoagulant results section. CBC WITHOUT Routine 03/20/2022 Transplant Liver Results for DIFFERENTIAL, B 8:13 AM CDT (HCC) this Medication Therapy procedure are Table Assembler Metal Not in the Anticoagulant results section. TACROLIMUS LEVEL, B Routine 03/20/2022 Transplant Liver Resu lts for 8:12 AM CDT (HCC) this Medication Therapy procedure are Retirement Not in the Anticoagulant results section. CMV DNA DETECT/QUANT, P Routine 03/20/2022 Transplant Liver Results for 8:12 AM CDT (HCC) this Medication Therapy procedure are Table Assembler Metal Not in the Anticoagulant results section. CT [...] CDT (HCC) this Medication Therapy procedure are Retirement Not in the Anticoagulant results section. GLUCOSE, FASTING, S/P Routine 03/13/2022 Transplant Liver Re sults for 8:00 AM CDT (HCC) this Medication Therapy procedure are Retirement Not in the Anticoagulant results section. COMPREHENSIVE METABOLIC Routine 03/13/2022 Transplant Liver Results for PANEL, S/P 8:00 AM CDT (HCC) this Medication Therapy procedure are Table Assembler Metal Not in the Anticoagulant results section. CBC WITHOUT Routine 03/13/2022 Transplant Liver Results for DIFFERENTIAL, B 8:00 AM CDT (HCC) this Medication Therapy procedure are Table Assembler Metal Not in the Anticoagulant results section. CMV DNA DETECT/QUANT, P Routine 03/13/2022 Transplant Liver Results for 8:00 AM CDT (HCC) this Medication Therapy procedure are Table Assembler Metal Not in the Anticoagulant results section. GLUCOSE, FASTING, S/P Routine 02/27/2022 Transplant Liver Re sults for 8:08 AM CDT (HCC) this Medication Therapy procedure are Retirement Not in the Anticoagulant results section. TACROLIMUS LEVEL, B Routine 02/27/2022 Transplant Liver Resu lts for 8:07 AM CDT (HCC) this Medication Therapy procedure are Table Assembler Metal Not in the Anticoagulant results section. COMPREHENSIVE METABOLIC Routine 02/27/2022 Transplant Liver Results for PANEL, S/P 8:07 AM CDT (HCC) this Medication Therapy procedure are Retirement Not in the Anticoagulant results section. CBC WITHOUT Routine 02/27/2022 Transplant Liver Results for DIFFERENTIAL, B 8:07 AM CDT (HCC) this Medication Therapy procedure are Retirement Not in the Anticoagulant results section. CMV DNA DETECT/QUANT, P Routine 02/27/2022 Transplant Liver Results for 8:07 AM CDT (HCC) this Medication Therapy procedure are Retirement Not in the Anticoagulant results section. TACROLIMUS LEVEL, B Routine 02/20/2022 Transplant Liver Resu lts for 8:13 AM CDT (HCC) this Medication Therapy procedure are Table Assembler Metal Not in the Anticoagulant results section. GLUCOSE, FASTING, S/P Routine 02/20/2022 Transplant Liver Re sults for 8:13 AM CDT (HCC) this Medication Therapy procedure are Table Assembler Metal Not in the Anticoagulant results section. COMPREHENSIVE METABOLIC Routine 02/20/2022 Transplant Liver Results for PANEL, S/P 8:13 AM CDT (HCC) this Medication Therapy procedure are Table Assembler Metal Not in the Anticoagulant results section. CBC WITHOUT Routine 02/20/2022 Transplant Liver Results for DIFFERENTIAL, B 8:13 AM CDT (HCC) this Medication Therapy procedure are Table Assembler Metal Not in the Anticoagulant results section. CMV DNA DETECT/QUANT, P Routine 02/20/2022 Transplant Liver Results for 8:13 AM CDT (HCC) this Medication Therapy procedure are Table Assembler Metal Not in the Anticoagulant results section. TACROLIMUS LEVEL, B Routine 02/13/2022 Transplant Liver Resu lts for 7:47 AM CDT (HCC) this Medication Therapy procedure are Retirement Not in the Anticoagulant results section. GLUCOSE, FASTING, S/P Routine 02/13/2022 Transplant Liver Re sults for 7:47 AM CDT (HCC) this Medication Therapy procedure are Table Assembler Metal Not in the Anticoagulant results section. COMPREHENSIVE METABOLIC Routine 02/13/2022 Transplant Liver Results for PANEL, S/P 7:47 AM CDT (HCC) this Medication Therapy procedure are Table Assembler Metal Not in the Anticoagulant results section. CBC WITHOUT Routine 02/13/2022 Transplant Liver Results for DIFFERENTIAL, B 7:47 AM CDT (HCC) this Medication Therapy procedure are Table Assembler Metal Not in the Anticoagulant results section. CMV DNA DETECT/QUANT, P Routine 02/13/2022 Transplant Liver Results for 7:46 AM CDT (HCC) this Medication Therapy procedure are Retirement Not in the Anticoagulant results section. PULMONARY FUNCTION TESTS Routine 02/07/2022 Chronic Obstruct davin Results for 1:23 PM CDT Pulmonary Disease this Without procedure are Exacerbation (HCC) in the results section. TACROLIMUS LEVEL, B Routine 02/06/2022 Transplant Liver Resu lts for 8:06 AM CDT (HCC) this Medication Therapy procedure are Retirement Not in the Anticoagulant results section. GLUCOSE, FASTING, S/P Routine 02/06/2022 Transplant Liver Re sults for 8:06 AM CDT (HCC) this Medication Therapy procedure are Retirement Not in the Anticoagulant results section. COMPREHENSIVE METABOLIC Routine 02/06/2022 Transplant Liver Results for PANEL, S/P 8:06 AM CDT (HCC) this Medication Therapy procedure are Retirement Not in the Anticoagulant results section. CBC WITHOUT Routine 02/06/2022 Transplant Liver Results for DIFFERENTIAL, B 8:06 AM CDT (HCC) this Medication Therapy procedure are Table Assembler Metal Not in the Anticoagulant results section. CMV DNA DETECT/QUANT, P Routine 02/06/2022 Transplant Liver Results for 8:06 AM CDT (HCC) this Medication Therapy procedure are Retirement Not in the Anticoagulant results section. SARS CORONAVIRUS-2 RNA, Routine 02/04/2022 Preprocedural Lab Results for V 4:38 PM CDT Exam this procedure are in the results section. TACROLIMUS LEVEL, B Routine 01/30/2022 Transplant Liver Resu lts for 8:04 AM CDT (HCC) this Medication Therapy procedure are Retirement Not in the Anticoagulant results section. GLUCOSE, FASTING, S/P Routine 01/30/2022 Transplant Liver Re sults for 8:04 AM CDT (HCC) this Medication Therapy procedure are Table Assembler Metal Not in the Anticoagulant results section. COMPREHENSIVE METABOLIC Routine 01/30/2022 Transplant Liver Results for PANEL, S/P 8:04 AM CDT (HCC) this Medication Therapy procedure are Table Assembler Metal Not in the Anticoagulant results section. CBC WITHOUT Routine 01/30/2022 Transplant Liver Results for DIFFERENTIAL, B 8:04 AM CDT (HCC) this Medication Therapy procedure are Table Assembler Metal Not in the Anticoagulant results section. CMV DNA DETECT/QUANT, P Routine 01/30/2022 Transplant Liver Results for 8:04 AM CDT (HCC) this Medication Therapy procedure are Retirement Not in the Anticoagulant results section. TACROLIMUS LEVEL, B Routine 01/23/2022 Transplant Liver Resu lts for 8:11 AM CDT (HCC) this Medication Therapy procedure are Table Assembler Metal Not in the Anticoagulant results section. GLUCOSE, FASTING, S/P Routine 01/23/2022 Transplant Liver Re sults for 8:11 AM CDT (HCC) this Medication Therapy procedure are Retirement Not in the Anticoagulant results section. COMPREHENSIVE METABOLIC Routine 01/23/2022 Transplant Liver Results for PANEL, S/P 8:11 AM CDT (HCC) this Medication Therapy procedure are Retirement Not in the Anticoagulant results section. CBC WITHOUT Routine 01/23/2022 Transplant Liver Results for DIFFERENTIAL, B 8:11 AM CDT (HCC) this Medication Therapy procedure are Retirement Not in the Anticoagulant results section. CMV DNA DETECT/QUANT, P Routine 01/23/2022 Transplant Liver Results for 8:11 AM CDT (HCC) this Medication Therapy procedure are Table Assembler Metal Not in the Anticoagulant results section. CT CHEST WITHOUT IV RAD - Routine 01/21/2022 Transplant Liver Res ults for CONTRAST (most 9:26 AM CDT (HCC) this inpatients and Medication Therapy procedu re are all Retirement Not in the outpatients) Anticoagulant results Pneumonia section. Aspergillus (HCC) TX REF SUSCEPT Routine 01/21/2022 Results for MACROBROTH EA DRUG 8:58 AM CDT this procedure are in the results section. TX REF SUSCEPT Routine 01/21/2022 Results for MACROBROTH EA DRUG 8:58 AM CDT this procedure are in the results section. TX REF SUSCEPT Routine 01/21/2022 Results for MACROBROTH EA DRUG 8:58 AM CDT this procedure are in the results section. TX REF SUSCEPT Routine 01/21/2022 Results for MACROBROTH EA DRUG 8:58 AM CDT this procedure are in the results section. MYCOBACTERIAL CULTURE, V Routine 01/21/2022 Bronchiectasis R esults for 8:58 AM CDT ([facility]) this procedure are in the results section. ACID FAST SMEAR FOR Routine 01/21/2022 Bronchiectasis Result s for MYCOBACTERIUM 8:58 AM CDT ([facility]) this procedure are in the results section. FUNGAL CULTURE, ROUTINE Routine 01/21/2022 Bronchiectasis Re sults for 8:58 AM CDT ([facility]) this procedure are in the results section. FUNGAL SMEAR Routine 01/21/2022 Bronchiectasis Results for 8:58 AM CDT ([facility]) this procedure are in the results section. BACTERIAL CULTURE, Routine 01/21/2022 Bronchiectasis Results for AEROBIC + SUSC, RESP 8:58 AM CDT ([facility]) this procedure are in the results section. GRAM STAIN Routine 01/21/2022 Bronchiectasis Results for 8:58 AM CDT ([facility]) this procedure are in the results section. TACROLIMUS LEVEL, B Routine 01/16/2022 Transplant Liver Resu lts for 8:09 AM CDT ([facility]) this Medication Therapy procedure are Table Assembler Metal Not in the Anticoagulant results section. GLUCOSE, FASTING, S/P Routine 01/16/2022 Transplant Liver Re sults for 8:09 AM CDT ([facility]) this Medication Therapy procedure are Retirement Not in the Anticoagulant results section. COMPREHENSIVE METABOLIC Routine 01/16/2022 Transplant Liver Results for PANEL, S/P 8:09 AM CDT ([facility]) this Medication Therapy procedure are Table Assembler Metal Not in the Anticoagulant results section. CBC WITHOUT Routine 01/16/2022 Transplant Liver Results for DIFFERENTIAL, B 8:09 AM CDT ([facility]) this Medication Therapy procedure are Retirement Not in the Anticoagulant results section. CMV DNA DETECT/QUANT, P Routine 01/16/2022 Transplant Liver Results for 8:09 AM CDT (HCC) this Medication Therapy procedure are Retirement Not in the Anticoagulant results section. DERMATOLOGY IMAGE EXAM Routine 01/11/2022 Resul ts for 12:00 PM CDT this procedure are in the results section. from Last 3 Months Allergies Active Allergy Reactions Severity Noted Date [...] Take 1 tablet by 90 tablet 0 08/06/2021 Active m (BACTRIM,SEPTRA) 400-80 mg mouth daily. [...] total) by Transplant Liver mouth 2 (two) ([facility]), Infection times a day. Cytomegalovirus Do not break, ([facility]), Medication cut, or open Therapy Retirement Not capsules. Anticoagulant Trelegy Ellipta INHALE 1 [...] mouth every 12 (HCC), Medication (twelve) Therapy Retirement Not hours. Anticoagulant tacrolimus (PROGRAF) Take 1 capsule 90 capsule 3 12/27/2021/ Discontinued 0.5 mg (0.5 mg total) 2021 (Reor cinthia) capsuleIndications: by mouth Transplant Liver daily. (HCC), Medication Therapy Retirement Not Anticoagulant valGANciclovir Take 1 tablet 45 tablet 0 12/27/202103/27/ (VALCYTE) 450 mg (450 mg total) 2021 tabletIndications: by mouth every Transplant Liver other day. (HCC), Medication take every 48 Therapy Retirement Not hours after Anticoagulant, dialysis Infection Cytomegalovirus (HCC) tacrolimus (PROGRAF) Take 1 capsule 180 capsule 3 03/15/2022 1 / Discontinued 0.5 mg (0.5 mg total) 2021 (Reor cinthia) capsuleIndications: by mouth every Transplant Liver 12 (twelve) (HCC), Medication hours. Therapy Table Assembler Metal Not Anticoagulant amoxicillin-pot Take 1 tablet 20 tablet 0 03/22/2022 clavulanate by mouth 2021 (AUGMENTIN) 875-125 (two) times a mg [...] Other Specified Organisms 1 08/13/2020 Medication Therapy Table Assembler Metal Not Anticoagulant 021 Chronic Failure Renal End [...] Transplant Liver 07/16/2004 Pretransplant Recipient Evaluation Exam Immunizations Name Administration Dates Next Due HepA [...] 04/22/2018, 05/16/2009 (FLUZONE/FLUARIX) (6 months and older)(PF) Social History Tobacco Use Types Packs/Day Years [...] or relatives? How often do you attend cheondoism or More than 4 times per year 12/15/2021 islam services? 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 Patholo gist Method Time Signature CMV DNA <35 (A) Undetected 04/11/2022 [facility] Detect/Quant, IU/mL 1:09 PM CDT P Comment: [...] performed u sing the tika CMV test ([employer] with the tika [employer] System. Specimen Anatomical Collection Method Collection Time Receive d Time (Source) Location / / Volume Laterality Blood (Blood, 04/10/2022 8:21 AM 04/11/20 7:06 Venous) CDT AM CDT Angélica Granger P.A.-C. LAB MICROBIOLOGY - BLOOD ORD ERABLES Performing Organization Address City/State/ZIP Code Phon e Number [facility] [address] [place], [place] [address] [place] [address] [facility] [address] [place] (ABNORMAL) Tacrolimus, B (04/10/2022 8:20 AM CDT)Only the most recent of11 resultswithin the time period is included. P athologist Signature Tacrolimus, B 1.2 (L) 5.0-15.0 04/11/2022 [facility] (Trough) 11:25 AM CDT ng/mL Comment: ----ADDITIONAL [...] and its performa nce characteristics determined by [facility] in a manner consistent with CLIA requirements. [...] Organization Address City/State/ZIP Code Phon e Number [facility] [address] [place], [place] [address], [place] [id number] [place], [place] [id number] [place] (ABNORMAL) CBC without Differential (04/10/2022 8:20 AM CDT)Only the most recent of11 resultswithin the time period is included. [facility] gist Method Time Signature Hemoglobin 9.8 [...] Volume Laterality Blood (Blood, 04/10/2022 8:20 AM 10/19/20 22 8:22 Venous) CDT AM CDT Angélica Granger P.A.-C. LAB BLOOD ADD-ON Performing Organization Address City/[facility] Code Phon e Number [address] [phone] [place] [address] [address] (ABNORMAL) Glucose, Fasting (04/10/2022 8:20 AM [...] LAB BLOOD NON ADD-ON Performing Organization Address City/[facility]/ZIP Code Phon e Number [address] [phone] [place] [address] (ABNORMAL) Comprehensive Metabolic Panel (04/10/2022 8:20 [...] Organization Address City/State/ZIP Code Phon e Number [place] [address] [place] [address] [place] [address] System in [place] [address] [address] Direct Laryngoscope-Otorhinolaryngology Image Exam (03/22/2022 8:15 AM CDT) Specimen (Source) Anatomical Collection Method Collection Time Re ceived Time Location / / Volume Laterality 03/22/2022 8:11 AM CDT Narrative [facility] - 03/22/2022 8:17 AM CDT This order has been created and auto-finalized to support the import of images acquired without order. The clini adelfo documentation to support these images can be found on the encounter ana t produced images. Provider Not In System IMG NON RAD IMAGING PROCEDUR ES Performing Organization Address City/State/ZIP Code Phon e Number IIWI II NA (ABNORMAL) Bacterial Culture, Aerobic + Susc (03/22/2022 8:13 AM CDT) Component Value Ref Test Analysis Performed At [facility] gist Range Method Time Signature Bacterial [...] SUSCEPTIBILITY, DAVID (MCG/M L) <=4 mcg/mL: Susceptible Lynn Elise P.A.-C.S., M.P.H. LAB MICROBIOLOGY - GENERAL ORDERABLES Performing Organization Address City/State/ZIP Code Phon e Number [facility] - [address] [place], [place] [address] [facility] [place] [address] [facility] [address] Chest without IV Contrast (03/13/2022 2:29 [...] by the treating provider and reviewed by tejal radiologist to increase sensitivity for detection of pulmonary nodules. Procedure Note Raphael Vazquez M.D. - 03/13/2022Formattin g of this note might be different [...] by the treating provider and reviewed by tejal radiologist to increase sensitivity for detection of pulmonary nodules. IMPRESSION: 1. Overall no significant change in the diffuse infectious/inflammatory bronchitis and bronchiolitis. 2. Additional findings are detailed in t he body of the report. Trung Plasencia P.A.-C., M.S. IMG CT PROCEDURES Pulmonary Function Tests (02/07/2022 1:23 PM CDT) P athologist Signature VC MAX PRE 3.08 L 02/07/2022 [facility] 2:36 PM CDT SUITE FVC 3.08 L 02/07/2022 [facility] 2:36 PM CDT SUITE FEV1 1.66 L 02/07/2022 [facility] 2:36 PM CDT SUITE FEV1/FVC 54.03 % 02/07/2022 [facility] 2:36 PM CDT SUITE [id number]% 0.79 L/s 02/07/2022 [facility] 2:36 PM CDT SUITE PEF PRE 5.42 L/s 02/07/2022 [facility] 2:36 PM CDT SUITE FET PRE 13.93 sec 02/07/2022 [facility] 2:36 PM CDT SUITE DLCO 17.81 ml/(min*mm 02/07/2022 [facility] Hg) 2:36 PM CDT SUITE DLCOc 19.62 ml/(min*mm 02/07/2022 [facility] Hg) 2:36 PM CDT SUITE HB 11.70 g(Hb)/dL 02/07/2022 [facility] 2:36 PM CDT SUITE VA 4.77 L 02/07/2022 [facility] 2:36 PM CDT SUITE [id number] 96.00 % 02/07/2022 [facility] 2:36 PM CDT SUITE PulseRest 96.00 1/min 02/07/2022 [facility] 2:36 PM CDT SUITE [id number] 93.00 % 02/07/2022 [facility] 2:36 PM CDT SUITE PulseExer 116.00 1/min 02/07/2022 [facility] 2:36 PM CDT SUITE EXER TIME 3.00 min 02/07/2022 [facility] 2:36 PM CDT SUITE STEP HEIGHT 9.00 Inch 02/07/2022 [facility] PRE 2:36 PM CDT SUITE TLC 6.90 L 02/07/2022 [facility] 2:36 PM CDT SUITE VC PRE 3.06 L 02/07/2022 [facility] 2:36 PM CDT SUITE FRCPLETH 4.67 L 02/07/2022 [facility] 2:36 PM CDT SUITE RV 3.84 L 02/07/2022 [facility] 2:36 PM CDT SUITE RV % TLC PRE 55.68 % 02/07/2022 [facility] 2:36 PM CDT SUITE TLC% 101 % % 02/07/2022 [facility] 2:36 PM CDT SUITE % PRED RV 164 % % 02/07/2022 [facility] 2:36 PM CDT SUITE % PRED VC MAX 74 % % 02/07/2022 [facility] 2:36 PM CDT SUITE FVC% 74 % % 02/07/2022 [facility] 2:36 PM CDT SUITE FEV1% 52 % % 02/07/2022 [facility] 2:36 PM CDT SUITE % PRED 71 % % 02/07/2022 [facility] FEV1/FVC 2:36 PM CDT SUITE % PRED FEF 32 % % 02/07/2022 [facility] 25-75% 2:36 PM CDT SUITE % PRED PEF 67 % % 02/07/2022 [facility] 2:36 PM CDT SUITE DLCO% 70 % % 02/07/2022 [facility] 2:36 PM CDT SUITE DLCOc% 78 % % 02/07/2022 [facility] 2:36 PM CDT SUITE PRED TLC 6.85 02/07/2022 [facility] 2:36 PM CDT SUITE PRED RV 2.34 02/07/2022 [facility] 2:36 PM CDT SUITE PRED VC MAX 4.15 02/07/2022 [facility] 2:36 PM CDT SUITE PRED FVC 4.15 02/07/2022 [facility] 2:36 PM CDT SUITE PRED FEV 1 3.17 02/07/2022 [facility] 2:36 PM CDT SUITE PRED FEV1/FVC 76.6 02/07/2022 [facility] 2:36 PM CDT SUITE PRED FEF 2.49 02/07/2022 [facility] 25-75% 2:36 PM CDT SUITE PRED PEF 8.0 02/07/2022 [facility] 2:36 PM CDT SU[address] PRED DLCO 25.3 02/07/2022 [facility] 2:36 PM CDT SUITE PRED DLCOc 25.3 02/07/2022 [facility] 2:36 PM CDT SUITE Specimen (Source) Anatomical Collection Method Collection Time Re ceived Time Location / / Volume Laterality 02/07/2022 1:23 PM CDT Impressions [facility] SUITE - 02/07/2022 2:36 PM C [...] Connie RocaSDemetrius PFT ORDERABLES Performing Organization Address [facility] Phon e Number [facility] SU[facility] SUITE NA SARS Coronavirus-2 RNA, V Asymptomatic (02/04/2022 4:38 PM CDT) [facility] Method Time Signature SARS-CoV-2 Swab, 02/05/2022 [facility] [...] pe rformed using the Aptima SARS-CoV-2 assay ([employer] on the [employer] tem under emergency use authorization (EUA) by the U.S. Food and Drug Administ breann. Fact sheets for this EUA assay can be fo und at the following links: For Healthcare Providers: https://www.fd a.gov/media/003035/download For Patients: https://www.fda.gov/media/ 412233/download Specimen Anatomical Collection Method Collection Time Receive d Time (Source) Location / / Volume Laterality Varies 02/04/2022 4:38 PM 4:55 (Nasopharynx) CDT AM CDT Connie RocaSDemetrius LAB MICROBIOLOGY - GENERAL ORDERABLES Performing Organization Address City/[facility]/ZIP [facility] Phon e Number [facility]- [address] [place] [phone] [place] [address] System [address] [facility] Manning Ant Test (01/21/2022 8:58 AM CDT) [...] AM CDT Trung Plasencia P.A.-C. MDemetriusS. LAB [facility] ORDERABLES Performing Organization Address City/State/ZIP Code Phon e Number [place] [address], [place] [phone] [facility] Department Of Pathology [place] [address] Dept of Path-Fungus Lab [facility] MML Referral Test 1 (01/21/2022 8:58 AM CDT) P athologist Signature Test Name Caspofungin 02/07/2022 [facility] AM CDT Result See Below 02/13/2022 [facility] 2:31 PM CDT Comment: Antifungal Susceptibility Testing Source: Sputum Species ID Provided: Fusarium sp. Result Name ?Result ?Flag ? Units ? Caspofungin (ALESSANDRA) ? >8 ?mcg/mL ? Interpretation ? No Established Breakpoints Test Performed By: [address] Department of Pathology Fungus Lab [place], [place] ??[phone] Specimen Anatomical Collection Method Collection Time Receive d Time (Source) Location / / Volume Laterality Varies 01/21/2022 8:58 AM 2 8:24 CDT AM CDT Trung Plasencia P.A.-C., M.S. LAB MISC ORDERABLES Performing Organization Address City/[facility] Code Phon e Number MISC REFERRAL LAB MISC Voriconazole - Sent Out Lab (01/21/2022 8:58 AM CDT) Component Value Ref Test Analysis Performed At [facility] gist Range Method Time Signature Source Sputum, Sputum [...] MICROBIOLOGY - GENERAL ORDERABLES Performing Organization Address City/[facility] Code Phon e Number [address] [phone] [facility] Department Of Pathology [place] [address] Dept of Path-Fungus Lab Posaconazole - Sent Out Lab (01/21/2022 8:58 AM CDT) Component Value Ref Test Analysis Performed At [facility] gist Range Method Time Signature Source Sputum, Sputum [...] 8:24 CDT AM CDT Trung Plasencia P.A.-C. M.S. LAB MICROBIOLOGY - GENERAL ORDERABLES Performing Organization Address City/State/ZIP Code Phon e Number [facility] [address], [place] [phone] [facility] Department Of [place]ology [place] [address] Dept of Path-Fungus Lab (ABNORMAL) Bacterial [...] Organization Address City/State/ZIP Code Phon e Number [facility] - [facility] [place], [place] [address] [place] [address] [facility] [address] Mycobacterial Culture (01/21/2022 8:58 AM CDT) [facility] Method Time Signature Mycobacterial No growth 03/04/2022 DTL Culture after 42 1:01 PM CDT days of incubation . Specimen Anatomical Collection Method Collection Time Receive d Time (Source) Location / / Volume Laterality Sputum (Sputum) 01/21/2022 8:58 AM 2021 9:57 CDT AM CDT Comment: Specimen Source Site: Sputum Trung Plasencia P.A.-C., M.S. LAB MICROBIOLOGY - GENERAL ORDERABLES Performing Organization Address City/[facility]/ZIP [facility] Phon e Number [facility] - [address] [place], [place] [address] [place] [address] [place], [place] [phone] [place] [address] [address] [facility] Fungal Smear (01/21/2022 8:58 AM CDT) P athologist Signature Fungal Smear Negative. 01/21/2022 DTL 1:38 PM CDT Specimen Anatomical Collection Method Collection Time Receive d Time (Source) Location / / Volume Laterality Sputum (Sputum) 01/21/2022 8:58 AM 2021 9:57 CDT AM CDT Comment: Specimen Source Site: Sputum Trung Plasencia P.A.-C., M.S. LAB MICROBIOLOGY - GENERAL ORDERABLES Performing Organization Address City/[facility] Phon e Number [facility] - [address] [place], [place] [address] [place] [address] [place], [place] [phone] [place] [address] [address] [facility] Acid Fast Smear For Mycobacterium (01/21/2022 8:58 [...] MICROBIOLOGY - GENERAL ORDERABLES Performing Organization Address City/[facility]/ZIP [facility] Phon e Number [facility] - 200 [place], [place] [address] [place] [address] 200 [address] [facility] Gram Stain (01/21/2022 8:58 AM CDT) Patholo [...] MICROBIOLOGY - GENERAL ORDERABLES Performing Organization Address City/[facility] Phon e Number [facility] - 200 [place], [place] [address] [place], [place] [phone] [place] [address] (ABNORMAL) Fungal Culture, Routine (01/21/2022 8:58 AM CDT) [facility] gist Method Time Signature Fungal Mixed [...] MICROBIOLOGY - GENERAL ORDERABLES Performing Organization Address City/[facility]/ZIP Code Phon e Number [facility] - [address] [place], [place] [address] [place] [address] ear, right conchal bowl 124 Mohs [...]
--- OUTSIDE RECORDS SUMMARY | 2022-04-13 11:52 | XMS_ITS | Encounter Summary ---
:1955 Author Organization [facility] Address [address] [place] [address] Care Team Providers Name Role Phone Elsewhere, Pcp Primary Care Provider Unavailable Reason for Visit Reason Comments Labs Only Encounter Details Date Type Department Care Team Description 03/28/2022 Clinical Communication Irena Gamez [facility] Labs Only [facility] for R, R.N. Transplantation and [address] [place] [address] Clinical Regeneration in [place], [place] [address] [place] [address] [place] [phone] (Work) [phone] Social History Tobacco Use Types Packs/Day Years [...] or relatives? How often do you attend nondenominational or More than 4 times per year 12/15/2021 anabaptist services? Do you belong to any clubs or No 12/15/2021 organizations such as nondenominational groups, unions, fraternal or athletic groups, or [...] place to sleep or slept in a residential (including now)? Education Answer Date Recorded What is the highest level of school Associate degree: jennifer reyes, 12/14/2021 you have completed or the highest technical, or vocational p beatriz degree you have received? 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 - 04/01/2022 4:57 PM CDT Provider who reviewed results: Dr Wan Recommendations: Increase tacrolimus to 1 mg BID Labs are due 1 week Patient Online Services message was initiated by a [facility] Registered Nurse for report of test results and recommendations. Telephone Encounter - Yolie Dubois R.N. - 03/28/2022 12:55 PM CDT Please review labs below. 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 He switched to oral valganciclovri 450 mg twice weekly (after dialysis on dialysis days on 08/07 per Trung Plasencia's recommendations. He stopped oral Valcyte after several undetected CMV levels on 09/15/21. 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. Valcyte stopped 12/10 per Trung Plasencia. Valcyte restarted 12/27 for CMV reactivation. He underwent sinus surgery on 07/26/21 with ENT team for chronic rhinosinusitis and post nasal drip with recurrent aspiration. He follows with Padmini Barry CNP in Nephrology for stage 5 CKD, on hemodialysis. On 12/11 Bruce started Voriconazole for pulmonary aspergillosis and Bactrim for Chronic rhinosinusitis On dialysis and temporarily Ti'd for kidney transplant. Alk phos has been elevated the last few weeks but has been improving and sodium has been low the last few weeks. Recommendations? Current Medications & Recent Dose Changes: Tacrolimus 0.5 mg daily (decreased from 0.5 mg bid 12/27/21) Mycophenolate 500 mg BID (Decreased to 250 mg BID 10/11) Prednisone 5 mg daily Labs: Recent Labs 03/27/22 0812 03/20/22 0812 03/13/22 0800 02/27/22 0807 02/20/22 0813 02/13/22 0747 TACROLIMUS <1.0 L <1.0 L 1.5 L 1.8 L 1.7 L 1.2 L Recent Labs 03/27/22 0812 03/20/22 0813 03/13/22 0800 HGB 10.6 L 11.0 L 10.8 L HCT 32.7 L 34.7 L 33.8 L WBC 6.1 10.2 H 5.6 PLT 299 253 226 NA 134 L 132 L 135 KPLASMA 3.8 3.9 3.8 GLUCOSE CANCELED 111 H CANCELED 124 H CANCELED 120 H BUN 37 H 31 H 33 H CREATININE 3.09 H 3.16 H 3.26 H EGFR 21 L 21 L 20 L ALKPHOS 150 H 178 H 161 H AST 22 30 27 ALT 21 42 31 BILITOT 0.4 0.4 0.4 ALBUMIN 4.1 4.2 4.3 Serologies: Recent Labs 03/20/22 0812 03/13/22 0800 02/27/22 0807 02/20/22 0813 CMVQUANT <35 A Undetected <35 A Undetected [...] Immunosuppression Goal Range: 1.5-4 Current Lab Frequency: weekly Please advise on any changes or recommendations. Thanks, Yolie Dubois R.N. *All labs are now found in [facility] - Flowsheets. For further review of labs, please review there or under Synopsis* documented in this encounter Plan of Treatment Upcoming Encounters Date Type Specialty Care Team Description 04/24/2022 Appointment Laboratory Medicine Angélica Granger P.A.-CDemetrius [address] [place] [phone] 04/25/2022 Office Visit Otorhinolaryngology Dex Matta, RAMONA, C.N.P., M.S.N. [address] [place] [phone] 05/08/2022 Appointment Laboratory Medicine Angélica Granger PDemetriusA.-C. [address] [place] [phone] 05/08/2022 Clinical Admitting/Central Communication Scheduling 05/10/2022 Appointment Radiology Jeremie Rose M.D. [address] [place] [phone] 05/10/2022 Comprehensive Visit Orthopedic Surgery Warner Graves M.D. [address] [place] [phone] 05/22/2022 Appointment Laboratory Medicine Angélica Granger P.A.-C. [address] [place] [phone] 06/05/2022 Appointment Laboratory Medicine Angélica Granger P.A.-C. [address] [place] [phone] 06/19/2022 Appointment Laboratory Angélica Royal P.A.-C. [address] [place] [phone] 07/03/2022 Appointment Laboratory Angélica Royal P.A.-C. [address] [place] [phone] 07/17/2022 Appointment Laboratory Angélica Royal P.A.-C. [address] [place] [phone] 07/31/2022 Appointment Laboratory Angélica Royal P.A.-C. [address] [place] [phone] 08/14/2022 Appointment Laboratory Angélica Royal P.A.-C. [address] [place] [phone] 08/28/2022 Appointment Laboratory Angélica Royal P.A.-C. [address] [place] [phone] documented as of this encounter Visit Diagnoses Diagnosis Transplant Liver (HCC) Medication Therapy As400 Operator Not Anticoa gulant documented in this encounter Additional Health Concerns Assessment Noted Time PHQ-9 Depression Total Score: 4 11/28/2020 10:17 AM CD T documented as of this encounter Care Teams Case Mgr Relationship Specialty Start Date End Date Elsewhere, Pcp PCP - General Family Medicine 07/29/17 [facility] - Laboratory Medicine 04/12/20 [place] [address] documented as of this encounter
--- OUTSIDE RECORDS SUMMARY | 2022-04-13 11:52 | XMS_ITS | Encounter Summary ---
:1955 Author Organization [facility] Address [address] [place] [address] Care Team Providers Name Role Phone Elsewhere, Pcp Primary Care Provider Unavailable Encounter Details Date Type Department Care Team Description 03/20/2022 Hospital Encounter Department of Angélica Granger ant Liver (HCC); Laboratory Medicine Leena PDemetriusADurgaC. Medication Therapy Shelter Not Anticoa gulant in [address] [phone] [place], [place] [phone] (Work) [phone] Social History Tobacco Use Types Packs/Day Years [...] or relatives? How often do you attend druze or More than 4 times per year 12/15/2021 confucianism services? Do you belong to any clubs or No 12/15/2021 organizations such as druze groups, unions, fraternal or athletic groups, or [...] place to sleep or slept in a intermediate (including now)? Education Answer Date Recorded What is the highest level of school Associate degree: jennifer reyes, 12/14/2021 you have completed or the highest technical, or vocational p beatriz degree you have received? 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 Medication Therapy Shelter Not Anticoagulant NIFEdipine XL (PROCARDIA Take 20 [...] tablet mouth 2 (two) times a day. valGANciclovir (VALCYTE) Take 1 tablet (450 45 tablet 0 12/202103/27/2022 450 mg mg total) by mouth tabletIndications: every other day. Transplant Liver (HCC), take every 48 hours Medication Therapy Long after dialysis Term Not Anticoagulant, Infection Cytomegalovirus (HCC) tacrolimus (PROGRAF) 0.5 Take 1 capsule (0.5 180 capsule 3 0 03/15/2022 04/01/2022 mg capsuleIndications: mg total) by mouth Transplant Liver (HCC), every 12 (twelve) Medication Therapy Long hours. Term Not Anticoagulant documented as of this encounter Plan of Treatment Upcoming Encounters Date Type Specialty Care Team Description 04/24/2022 Appointment Laboratory Medicine Angélica Granger P.ASky [address] [place] [phone] 04/25/2022 Office Visit Otorhinolaryngology Dex Matta APRN, C.N.P., M.S.N. [address] [place] [phone] 05/08/2022 Appointment Laboratory Medicine Angélica Granger P.A.-C. [address] [place] [phone] 05/08/2022 Clinical Admitting/Central Communication Scheduling 05/10/2022 Appointment Radiology Jeremie Rose M.D. [address] [place] [phone] 05/10/2022 Comprehensive Visit Orthopedic Surgery Warner Graves M.D. [address] [place] [phone] 05/22/2022 Appointment Laboratory Medicine Angélica Granger P.A.-C. [address] [place] [phone] 06/05/2022 Appointment Laboratory Medicine Angélica Granger P.A.-C. [address] [place] [phone] 06/19/2022 Appointment Laboratory Medicine Angélica Granger P.A.-C. [address] [place] [phone] 07/03/2022 Appointment Laboratory Medicine Angélica Granger P.A.-C. [address] [place] [phone] 07/17/2022 Appointment Laboratory Medicine Angélica Granger P.A.-C. [address] [place] [phone] 07/31/2022 Appointment Laboratory Medicine Angélica Granger P.A.-C. [address] [place] [phone] 08/14/2022 Appointment Laboratory Medicine Angélica Granger P.A.-C. [address] [place] [phone] 08/28/2022 Appointment Laboratory Medicine Angélica Granger P.A.-C. [address] [place] [phone] documented as of this encounter Procedures Procedure Name Priority Date/Time Associated Diagnosis Comme nts CBC WITHOUT Routine 03/20/2022 8:13 Transplant Liver Results for this DIFFERENTIAL, B AM CDT (HCC) procedure are in Medication Therapy the resul ts Shelter Not section. Anticoagulant GLUCOSE, FASTING, S/P Routine 03/20/2022 8:13 Transplant Liver Results for this AM CDT (HCC) procedure are in Medication Therapy the resul ts Shelter Not section. Anticoagulant COMPREHENSIVE Routine 03/20/2022 8:13 Transplant Liver Results for this METABOLIC PANEL, S/P AM CDT (HCC) procedure are in Medication Therapy the resul ts Shelter Not section. Anticoagulant CMV DNA DETECT/QUANT, Routine 03/20/2022 8:12 Transplant Liver Results for this P AM CDT (HCC) procedure are in Medication Therapy the resul ts Shelter Not section. Anticoagulant TACROLIMUS LEVEL, B Routine 03/20/2022 8:12 Transplant Liver R esults for this AM CDT (HCC) procedure are in Medication Therapy the resul ts Consulting Utility Forester Not section. Anticoagulant documented in this encounter Results (ABNORMAL) Glucose, Fasting (03/20/2022 8:13 AM CDT) P athologist Signature Glucose, P 124 (H) 70 - 100 03/20/2022 [facility] mg/dL 8:35 AM CDT Last Intake 8 hr 03/20/2022 [facility] 8:14 AM CDT Specimen Anatomical Collection Method Collection Time Receive d Time (Source) Location / / Volume Laterality Blood (Blood, 03/20/2022 8:13 AM 09/28/20 22 8:14 Venous) CDT AM CDT Angélica Granger P.A.-C. LAB BLOOD NON ADD-ON Performing Organization Address City/State/ZIP Code Phon e Number [facility] [address] [place] [address] [place] [address] [address] (ABNORMAL) Comprehensive Metabolic Panel (03/20/2022 8:13 AM CDT) Analysis Performed At Patho logist Time Signature Potassium, P 3.9 3.6 - 5.2 03/20/2022 [facility] mmol/L 8:39 AM CDT Sodium, P 132 (L) 135 - 145 03/20/2022 [facility] mmol/L 8:39 AM CDT Chloride, P 96 (L) 98 - 107 03/20/2022 [facility] mmol/L 8:39 AM CDT Bicarbonate, P 24 22 - 29 03/20/2022 [facility] mmol/L 8:39 AM CDT Anion Gap, P 12 7 - 15 03/20/2022 [facility] 8:39 AM CDT BUN (Blood Urea 31 (H) 8 - 24 03/20/2022 [facility] Nitrogen), P mg/dL 8:39 AM CDT Creatinine 3.16 (H) 0.74 - 03/20/2022 [facility] 1.35 mg/dL 8:39 AM CDT Estimated GFR 21 (L) >=60 03/20/2022 [facility] (eGFR) mL/min/BSA 8:39 AM CDT Comment: Estimated GFR calculated using the 2020 CKD_EPI creatinine equation. Calcium, Total, P 9.1 8.8 - 10.2 mg/dL 03/20/2022 8:39 AM CDT [facility] Glucose, P CANCELED mg/dL 03/20/2022 8:14 AM CDT [facility] Comment: Duplicate test request. Result canceled by the ancillary. Protein, Total, P 7.0 6.3 - 7.9 g/dL 03/20/2022 8:39 A M CDT [facility] Albumin, P 4.2 3.5 - 5.0 g/dL 03/20/2022 8:39 AM CDT C NFL Aspartate Aminotransferase 30 8 - 48 U/L 03/20/2022 8 :39 AM CDT [facility] (AST), P Alkaline Phosphatase, P 178 (H) 40 - 129 U/L 03/20/2022 8: 39 AM CDT [facility] Alanine Aminotransferase 42 7 - 55 U/L 03/20/2022 8:3 9 AM CDT [facility] (ALT), P Bilirubin, Total, P 0.4 <=1.2 mg/dL 03/20/2022 8:39 AM CDT [facility] Specimen Anatomical Collection Method Collection Time Receive d Time (Source) Location / / Volume Laterality Blood (Blood, 03/20/2022 8:13 AM 03/20/20 8:14 Venous) CDT AM CDT Angélica Granger P.A.-C. LAB BLOOD ADD-ON Performing Organization Address City/State/[facility] Code Phon e Number [address] [address] [place] [address] System [address] (ABNORMAL) CBC without Differential (03/20/2022 8:13 AM CDT) [facility] Method Time Signature Hemoglobin 11.0 (L) 13.2 - 03/20/2022 [facility] 16.6 g/dL 8:39 AM CDT Hematocrit 34.7 (L) 38.3 - 03/20/2022 [facility] 48.6 % 8:39 AM CDT Erythrocytes 3.44 (L) 4.35 - 03/20/2022 [facility] 5.65 8:39 AM CDT x10(12)/L MCV 100.9 (H) 78.2 - 03/20/2022 [facility] 97.9 fL 8:39 AM CDT RBC Distrib Width 13.7 11.8 - 03/20/2022 [facility] 14.5 % 8:39 AM CDT Platelet Count 253 135 - 317 03/20/2022 [facility] x10(9)/L 8:39 AM CDT Leukocytes 10.2 (H) 3.4 - 9.6 03/20/2022 [facility] x10(9)/L 8:39 AM CDT Specimen Anatomical Collection Method Collection Time Receive d Time (Source) Location / / Volume Laterality Blood (Blood, 03/20/2022 8:13 AM 03/20/20 22 8:14 Venous) CDT AM CDT Angélica Granger P.A.-C. LAB BLOOD ADD-ON Performing Organization Address City/[facility] Code Phon e Number [facility] [address] [place] [address] [place] [address] [address] (ABNORMAL) Tacrolimus, B (03/20/2022 8:12 AM CDT) athologist Signature Tacrolimus, B <1.0 (L) 5.0-15.0 03/21/2022 [facility] (Trough) 10:21 AM CDT ng/mL Comment: ----ADDITIONAL INFORMATION---- Target [...] performa nce characteristics determined by [facility] in a manner consistent with CLIA requirements. This test has not been cleared or approved by the U.S. Mer d and Drug Administration. Specimen Anatomical Collection Method Collection Time Receive d Time (Source) Location / / Volume Laterality Blood (Blood, 03/20/2022 8:12 AM 03/21/20 7:12 Venous) CDT AM CDT Angélica Granger P.A.-C. LAB BLOOD NON ADD-ON Performing Organization Address City/State/ZIP Code Phon e Number [facility] [address] [place], [place] [address] [place] [phone] [place] [address] [place] (ABNORMAL) CMV DNA Detect / Quant, Plasma (03/20/2022 8:12 AM CDT) Patholo gist Method Time Signature CMV DNA <35 (A) Undetected 03/21/2022 [facility] Detect/Quant, IU/mL 7:41 PM CDT P Comment: Result in log IU/mL is <1.54. CMV DNA is detected, but level present i s <35 IU/mL (<1.54 log IU/mL). This assay cannot accurately quantify CMV DNA below this level. ----ADDITIONAL INFORMATION---- The quantification range of this assay i s 35 to 10,000,000 IU/mL (1.54 log to 7.00 log IU/mL). Testing was performed u sing the tika CMV test ([employer] with the tika 6800 System. Specimen Anatomical Collection Method Collection Time Receive d Time (Source) Location / / Volume Laterality Blood (Blood, 03/20/2022 8:12 AM 03/21/20 8:38 Venous) CDT AM CDT Angélica Granger P.A.-C. LAB MICROBIOLOGY - BLOOD ORD ERABLES Performing Organization Address City/State/[facility] Phon e Number [facility] [address] [place] [phone] [place] documented in this encounter Visit Diagnoses Diagnosis Transplant Liver (HCC) Medication Therapy Consulting Utility Forester Not Anticoa gulant documented in this encounter Additional Health Concerns Assessment Noted Time PHQ-9 Depression Total Score: 4 11/28/2020 10:17 AM CD T documented as of this encounter Care Teams Support Manager Relationship Specialty Start Date End Date Elsewhere, Pcp PCP - General Family Medicine 07/29/17 [facility] - Laboratory Medicine 04/12/20 [place] [phone] documented as of this encounter
--- OUTSIDE RECORDS SUMMARY | 2022-04-13 11:52 | XMS_ITS | Encounter Summary ---
:1955 Author Organization [facility] Address [address] [place] [address] Care Team Providers Name Role Phone Elsewhere, Pcp Primary Care Provider Unavailable Reason for Referral Outpatient (Routine) - Authorized Specialty Diagnoses / Procedures Referred By Contact Refer red To Contact Diagnoses Pain Right Ankle And Joints Right Foot Jeremie Rose M.D. [facility] Procedures DX Foot Ankle Right 3+ Views [address] [place] [phone] Referral ID Status Reason Start Date Expiration Date Visits V isits Requested Authorized [id number] Authorized 03/21/2022 03/21/2023 1 1 Reason for Visit Reason Comments Pre-visit Testing Orders Encounter Details Date Type Department Care Team Description 03/20/2022 Clinical Communication Department of [facility] Pre- visit Testing Orthopedic Surgery Angela Soliman Orders in [place], [address] [place] [address] [place] [phone] [place], [place] [phone] (Work) [phone] Social History Tobacco Use Types Packs/Day Years [...] or relatives? How often do you attend gnosticist or More than 4 times per year 12/15/2021 anabaptism services? Do you belong to any clubs or No 12/15/2021 organizations such as gnosticist groups, unions, fraternal or athletic groups, or [...] place to sleep or slept in a jail (including now)? Education Answer Date Recorded What is the highest level of school Associate degree: jennifer reyes, 12/14/2021 you have completed or the highest technical, or vocational p Onfanram degree you have received? 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 Thank you. documented in this encounter Plan of Treatment Upcoming Encounters Date Type Specialty Care Team Description 04/24/2022 Appointment Laboratory Medicine Angélica Granger P.A.-C. [address] [place] [phone] 04/25/2022 Office Visit Otorhinolaryngology Dex Matta APRN, C.N.P., M.S.NDemetrius [address] [place] [phone] 05/08/2022 Appointment Laboratory Medicine Angélica Granger P.A.-C. [address] [place] [phone] 05/08/2022 Clinical Admitting/Central Communication Scheduling 05/10/2022 Appointment Radiology Jeremie Rose M.D. [address] [place] [phone] 05/10/2022 Comprehensive Visit Orthopedic Surgery Warner Graves M.D. [address] [place] [phone] 05/22/2022 Appointment Laboratory Medicine Angélica Granger P.A.-C. [address] [place] [phone] 06/05/2022 Appointment Laboratory Medicine Angélica Granger P.A.-C. [address] [place] [phone] 06/19/2022 Appointment Laboratory Medicine Angélica Granger P.A.-C. [address] [place] [phone] 07/03/2022 Appointment Laboratory Medicine Angélica Granger P.A.-C. [address] [place] [phone] 07/17/2022 Appointment Laboratory Medicine Angélica Granger P.A.-C. [address] [place] [phone] 07/31/2022 Appointment Laboratory Medicine Angélica Granger P.A.-C. [address] [place] [address] 08/14/2022 Appointment Laboratory Medicine Angélica Granger P.A.-C. [address] [place] [address] 08/28/2022 Appointment Laboratory Medicine Angélica Granger P.A.-C. [address] [place] [phone] Scheduled Orders Name Type Priority Associated Diagnoses Order S chedule DX Foot Ankle Imaging RAD - Routine (most Pain Right Ankle And Expected: Right 3+ Views inpatients and all Joints Right Foot outpatients) (Approximate), Expires: 2022 documented as of this encounter Visit Diagnoses Diagnosis Pain Right Ankle And Joints Right Foot - Primary documented in this encounter Additional Health Concerns Assessment Noted Time PHQ-9 Depression Total Score: 4 11/28/2020 10:17 AM CD T documented as of this encounter Care Teams Order Editor Relationship Specialty Start Date End Date Elsewhere, Pcp PCP - General Family Medicine 07/29/17 [facility] - Laboratory Medicine 04/12/[address] [address] documented as of this encounter
--- OUTSIDE RECORDS SUMMARY | 2022-04-13 11:52 | XMS_ITS | Encounter Summary ---
:1955 Author Organization [facility] Address [address] [place] [address] Care Team Providers Name Role Phone Elsewhere, Pcp Primary Care Provider Unavailable Encounter Details Date Type Department Care Team Description 03/19/2022 Orders Only Department of Óscar Ramirez, Otorhinolaryngology in .Demetrius [place], [place] [address] [facility] [address] [place] [phone] Social History Tobacco Use Types Packs/Day Years [...] place to sleep or slept in a assisted (including now)? Education Answer Date Recorded What is the highest level of school Associate degree: jennifer reyes, 12/14/2021 you have completed or the highest technical, or vocational p beatriz degree you have received? 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 [address] [place] [phone] 05/08/2022 Appointment Laboratory Medicine Angélica Granger P.A.-CDemetrius [address] [place] [phone] 05/08/2022 Clinical Admitting/Central Communication Scheduling 05/10/2022 Appointment Radiology Jeremie Rose M.D. [address] [place] [phone] 05/10/2022 Comprehensive Visit Orthopedic Surgery Warner Graves M.D. [address] [place] [phone] 05/22/2022 Appointment Laboratory Medicine Angélica Granger P.A.-C. [address] [place] [phone] 06/05/2022 Appointment Laboratory Medicine Angélica Granger P.A.-C. [address] [place] [phone] 06/19/2022 Appointment Laboratory Medicine Angélica Granger P.A.-C. [address] [place] [phone] 07/03/2022 Appointment Laboratory Medicine Angélica Granger P.A.-C. [address] [place] [phone] 07/17/2022 Appointment Laboratory Angélica Royal P.A.-C. [address] [place] [phone] 07/31/2022 Appointment Laboratory Medicine Angélica Granger P.A.-C. [address] [place] [phone] 08/14/2022 Appointment Laboratory Angélica Royal P.A.-C. [address] [place] [phone] 08/28/2022 Appointment Laboratory Medicine Angélica Granger P.A.-C. [address] [place] [phone] documented as of this encounter Visit Diagnoses Not on filedocumented in this encounter Additional Health Concerns Assessment Noted Time PHQ-9 Depression Total Score: 4 11/28/2020 10:17 AM CD T documented as of this encounter Care Teams Product Line Manager Relationship Specialty Start Date End Date Elsewhere, Pcp PCP - General Family Medicine 07/29/17 [facility] - Laboratory Medicine 04/12/20 [place] [address] documented as of this encounter
--- OUTSIDE RECORDS SUMMARY | 2022-04-13 11:52 | XMS_ITS | Encounter Summary ---
:1955 Author Organization [facility] Address [address] [place] [address] Care Team Providers Name Role Phone Elsewhere, Pcp Primary Care Provider Unavailable Encounter Details Date Type Department Care Team Description 03/22/2022 Ancillary Procedure Department of Otorhinolaryngology Social History Tobacco Use Types Packs/Day Years [...] or relatives? How often do you attend sabianist or More than 4 times per year 12/15/2021 christianity services? Do you belong to any clubs or No 12/15/2021 organizations such as sabianist groups, unions, fraternal or athletic groups, or [...] place to sleep or slept in a fci (including now)? Education Answer Date Recorded What is the highest level of school Associate degree: renukakeyana reyes, 12/14/2021 you have completed or the highest technical, or vocational p beatriz degree you have received? 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 [address] [place] [phone] 04/25/2022 Office Visit Otorhinolaryngology Dex Matta APRN, C.N.P., M.S.N. [address] [place] [phone] 05/08/2022 Appointment Laboratory Medicine Angélica Granger P.A.-CDemetrius [address] [place] [phone] 05/08/2022 Clinical Admitting/Central Communication Scheduling 05/10/2022 Appointment Radiology Jeremie Rose M.D. [address] [place] [phone] 05/10/2022 Comprehensive Visit Orthopedic Surgery Warner Graves M.D. [address] [place] [address] [phone] 05/22/2022 Appointment Laboratory Medicine Angélica Granger P.A.-CDemetrius [address] [place] [phone] 06/05/2022 Appointment Laboratory Medicine Angélica Granger P.A.-CDemetrius [address] [place] [phone] 06/19/2022 Appointment Laboratory Medicine Angélica Granger P.A.-C. [address] [place] [phone] 07/03/2022 Appointment Laboratory Medicine Angélica Granger P.A.-C. [address] [place] [phone] 07/17/2022 Appointment Laboratory Medicine Angélica Granger P.A.-C. [address] [place] [address] [phone] 07/31/2022 Appointment Laboratory Medicine Angélica Granger P.A.-C. [address] [place] [phone] 08/14/2022 Appointment Laboratory Medicine Angélica Granger P.A.-C. [address] [place] [address] [phone] 08/28/2022 Appointment Laboratory Medicine Angélica Granger P.A.-C. [address] [place] [phone] documented as of this encounter Procedures Procedure Name Priority Date/Time Associated Comments Diagnosis OTORHINOLARYNGOLOGY IMAGE Routine 03/22/2022 8:15 Results for this EXAM AM CDT procedure are i n the results section. documented in this encounter Results Direct Laryngoscope-Otorhinolaryngology Image Exam (03/22/2022 8:15 AM [...] Code Phon e Number IIMS IIMS NA documented in this encounter Visit Diagnoses Not on filedocumented in this encounter Additional Health Concerns Assessment Noted Time PHQ-9 Depression Total Score: 4 11/28/2020 10:17 AM ALEXANDER T documented as of this encounter Care Teams Hospital Personnel Director Relationship Specialty Start Date End Date Elsewhere, Pcp PCP - General Family Medicine 07/29/17 [facility] - Laboratory Medicine 04/12/20 [place] [address] documented as of this encounter
--- OUTSIDE RECORDS SUMMARY | 2022-04-13 11:53 | XMS_ITS | Encounter Summary ---
:1955 Author Organization [facility] Address [address] [place] [address] Care Team Providers Name Role Phone Elsewhere, Pcp Primary Care Provider Unavailable Encounter Details Date Type Department Care Team Description 03/13/2022 Hospital Encounter Department of Angélica Granger ant Liver (HCC); Laboratory Medicine Leena PDemetriusADurgaC. Medication Therapy Assisted Not Anticoa gulant in [address] [phone] [place], [place] [phone] (Work) [phone] Social History Tobacco Use Types Packs/Day Years [...] or relatives? How often do you attend congregation or More than 4 times per year 12/15/2021 catholic services? 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 Medication Therapy Assisted Not Anticoagulant NIFEdipine XL (PROCARDIA Take 20 [...] tacrolimus (PROGRAF) 0.5 Take 1 capsule (0.5 90 capsule 3 03/15/2022 mg capsuleIndications: mg total) by mouth Transplant Liver (HCC), daily. Medication Therapy Special Forces Officer Not Anticoagulant documented as 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 [address] [place] [phone] 04/25/2022 Office Visit Otorhinolaryngology Dex Matta APRN, C.N.P., M.S.N. [address] [place] [address] [phone] 05/08/2022 Appointment Laboratory Medicine Angélica Granger P.A.-C. [address] [place] [phone] 05/08/2022 Clinical Admitting/Central Communication Scheduling 05/10/2022 Appointment Radiology Jereime Rose M.D. [address] [place] [phone] 05/10/2022 Comprehensive Visit Orthopedic Surgery Warner Graves M.D. [address] [place] [phone] 05/22/2022 Appointment Laboratory Medicine Angélica Granger P.A.-C. [address] [place] [phone] 06/05/2022 Appointment Laboratory Medicine Angélica Granger P.A.-C. [address] [place] [phone] 06/19/2022 Appointment Laboratory Medicine Angélica Granger P.A.-C. [address] [place] [phone] 07/03/2022 Appointment Laboratory Medicine Angélica Granger P.A.-C. [address] [place] [phone] 07/17/2022 Appointment Laboratory Medicine Angélica Granger P.A.-C. [address] [place] [phone] 07/31/2022 Appointment Laboratory Medicine Angélica Granger P.A.-C. [address] [place] [address], [place] [phone] 08/14/2022 Appointment Laboratory Medicine Angélica Granger P.A.-C. [address] [place] [phone] 08/28/2022 Appointment Laboratory Medicine Angélica Granger P.A.-C. [address] [place] [phone] documented as of this encounter Procedures Procedure Name Priority Date/Time Associated Diagnosis Comme nts CMV DNA DETECT/QUANT, Routine 03/13/2022 8:00 Transplant Liver Results for this P AM CDT (HCC) procedure are in Medication Therapy the resul ts Special Forces Officer Not section. Anticoagulant TACROLIMUS LEVEL, B Routine 03/13/2022 8:00 Transplant Liver R esults for this AM CDT (HCC) procedure are in Medication Therapy the resul ts Special Forces Officer Not section. Anticoagulant CBC WITHOUT Routine 03/13/2022 8:00 Transplant Liver Results for this DIFFERENTIAL, B AM CDT (HCC) procedure are in Medication Therapy the resul ts Assisted Not section. Anticoagulant GLUCOSE, FASTING, S/P Routine 03/13/2022 8:00 Transplant Liver Results for this AM CDT (HCC) procedure are in Medication Therapy the resul ts Special Forces Officer Not section. Anticoagulant COMPREHENSIVE Routine 03/13/2022 8:00 Transplant Liver Results for this METABOLIC PANEL, S/P AM CDT (HCC) procedure are in Medication Therapy the resul ts Special Forces Officer Not section. Anticoagulant documented in this encounter Results (ABNORMAL) Tacrolimus, B (03/13/2022 8:00 AM CDT) athologist Signature Tacrolimus, B 1.5 (L) 5.0-15.0 03/14/2022 SDSC (Trough) 11:19 AM CDT ng/mL Comment: ----ADDITIONAL INFORMATION---- Target [...] performa nce characteristics determined by [facility] in a manner consistent with CLIA requirements. This test has not been cleared or approved by the U.S. Mer d and Drug Administration. Specimen Anatomical Collection Method Collection Time Receive d Time (Source) Location / / Volume Laterality Blood (Blood, 03/13/2022 8:00 AM 03/14/20 7:25 Venous) CDT AM CDT Angélica Granger P.A.-C. LAB BLOOD NON ADD-ON Performing Organization Address [facility] Phon e Number [address] MURILLO [place] [address] MURILLO CMV DNA Detect / Quant, Plasma (03/13/2022 8:00 AM CDT) Patholo gist Method Time Signature CMV DNA Undetected Undetected 03/14/2022 [facility] Detect/Quant, IU/mL 9:15 PM CDT P Comment: Result in log IU/mL is Undetected. ----ADDITIONAL INFORMATION---- The quantification range of this assay i s 35 to 10,000,000 IU/mL (1.54 log to 7.00 log IU/mL). Testing was performed u sing the tika CMV test ([employer] with the tika [id number] System. Specimen Anatomical Collection Method Collection Time Receive d Time (Source) Location / / Volume Laterality Blood (Blood, 03/13/2022 8:00 AM 03/14/20 7:06 Venous) CDT AM CDT Angélica Granger P.A.-C. LAB MICROBIOLOGY - BLOOD ORD ERABLES Performing Organization Address [facility] Phon e Number [address] [place]ILLO [place] [address] MURILLO (ABNORMAL) Glucose, Fasting (03/13/2022 8:00 AM CDT) athologist Signature Glucose, P 120 (H) 70 - 100 03/13/2022 [facility] mg/dL 8:26 AM CDT Last Intake 12 hr 03/13/2022 [facility] 8:02 AM CDT Specimen Anatomical Collection Method Collection Time Receive d Time (Source) Location / / Volume Laterality Blood (Blood, 03/13/2022 8:00 AM 03/13/20 8:02 Venous) CDT AM CDT Angélica Granger P.A.-C. LAB BLOOD NON ADD-ON Performing Organization Address City/State/ZIP Code Phon e Number [facility]- [address] [place] [id number] [facility] [place] [address] System [address] (ABNORMAL) Comprehensive Metabolic Panel (03/13/2022 8:00 AM CDT) Analysis Performed At Patho logist Time Signature Potassium, P 3.8 3.6 - 5.2 03/13/2022 [facility] mmol/L 8:29 AM CDT Sodium, P 135 135 - 145 03/13/2022 [facility] mmol/L 8:29 AM CDT Chloride, P 98 98 - 107 03/13/2022 [facility] mmol/L 8:29 AM CDT Bicarbonate, P 24 22 - 29 03/13/2022 [facility] mmol/L 8:29 AM CDT Anion Gap, P 13 7 - 15 03/13/2022 [facility] 8:29 AM CDT BUN (Blood Urea 33 (H) 8 - 24 03/13/2022 [facility] Nitrogen), P mg/dL 8:29 AM CDT Creatinine 3.26 (H) 0.74 - 03/13/2022 [facility] 1.35 mg/dL 8:29 AM CDT Estimated GFR 20 (L) >=60 03/13/2022 [facility] (eGFR) mL/min/BSA 8:29 AM CDT Comment: Estimated GFR calculated using the 2020 CKD_EPI creatinine equation. Calcium, Total, P 9.1 8.8 - 10.2 mg/dL 03/13/2022 8:29 AM CDT [facility] Glucose, P CANCELED mg/dL 03/13/2022 8:02 AM CDT CN[facility] Comment: Duplicate test request. Result canceled by the ancillary. Protein, Total, P 6.8 6.3 - 7.9 g/dL 03/13/2022 8:29 A M CDT [facility] Albumin, P 4.3 3.5 - 5.0 g/dL 03/13/2022 8:29 AM CDT C NFL Aspartate Aminotransferase 27 8 - 48 U/L 03/13/2022 8 :29 AM CDT [facility] (AST), P Alkaline Phosphatase, P 161 (H) 40 - 129 U/L 03/13/2022 8: 29 AM CDT [facility] Alanine Aminotransferase 31 7 - 55 U/L 03/13/2022 8:2 9 AM CDT [facility] (ALT), P Bilirubin, Total, P 0.4 <=1.2 mg/dL 03/13/2022 8:29 AM CDT [facility] Specimen Anatomical Collection Method Collection Time Receive d Time (Source) Location / / Volume Laterality Blood (Blood, 03/13/2022 8:00 AM 03/13/20 8:02 Venous) CDT AM CDT Angélica Granger P.A.-C. LAB BLOOD ADD-ON Performing Organization Address City/State/[facility] Code Phon e Number [facility]- [address] [place] [address] [place] [phone] System in [address] (ABNORMAL) CBC without Differential (03/13/2022 8:00 AM CDT) [facility] Method Time Signature Hemoglobin 10.8 (L) 13.2 - 03/13/2022 [facility] 16.6 g/dL 8:22 AM CDT Hematocrit 33.8 (L) 38.3 - 03/13/2022 [facility] 48.6 % 8:22 AM CDT Erythrocytes 3.38 (L) 4.35 - 03/13/2022 [facility] 5.65 8:22 AM CDT x10(12)/L MCV 100.0 (H) 78.2 - 03/13/2022 [facility] 97.9 fL 8:22 AM CDT RBC Distrib Width 13.4 11.8 - 03/13/2022 [facility] 14.5 % 8:22 AM CDT Platelet Count 226 135 - 317 03/13/2022 [facility] x10(9)/L 8:22 AM CDT Leukocytes 5.6 3.4 - 9.6 03/13/2022 [facility] x10(9)/L 8:22 AM CDT Specimen Anatomical Collection Method Collection Time Receive d Time (Source) Location / / Volume Laterality Blood (Blood, 03/13/2022 8:00 AM 03/13/20 8:02 Venous) CDT AM CDT Angélica Granger P.A.-C. LAB BLOOD ADD-ON Performing Organization Address City/State/[facility] Phon e Number [facility]- [address] [place] [phone] [place] [address] [place] [address] System in [address] documented in this encounter Visit Diagnoses Diagnosis Transplant Liver (HCC) Medication Therapy Special Forces Officer Not Anticoa gulant documented in this encounter Additional Health Concerns Assessment Noted Time PHQ-9 Depression Total Score: 4 11/28/2020 10:17 AM CD T documented as of this encounter Care Teams Electronic Industrial Controls Mechanic Relationship Specialty Start Date End Date Elsewhere, Pcp PCP - General Family Medicine 07/29/17 [facility] - Laboratory Medicine 04/12/20 [place] [address] documented as of this encounter
--- OUTSIDE RECORDS SUMMARY | 2022-04-13 11:53 | XMS_ITS | Encounter Summary ---
:1955 Author Organization [facility] Address [address] [place] [address] Care Team Providers Name Role Phone Elsewhere, Pcp Primary Care Provider Unavailable Reason for Visit Reason Comments Med Refill Azelastine Encounter Details Date Type Department Care Team Description 03/19/2022 Clinical Department of Jean Med Refill Communication Otorhinolaryngology in [place] (Aze lastine) [place], [place] Sada [address] [facility] [address] [place] [phone] [place] [address] Social History Tobacco Use Types Packs/Day Years [...] or relatives? How often do you attend sabianism or More than 4 times per year 12/15/2021 muslim services? Do you belong to any clubs or No 12/15/2021 organizations such as sabianism groups, unions, fraternal or athletic groups, or [...] place to sleep or slept in a detention (including now)? Education Answer Date Recorded What is the highest level of school Associate degree: jennifer reyes, 12/14/2021 you have completed or the highest technical, or vocational p beatriz degree you have received? 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 Singh back in follow-up today. Overall, he appears to be healing wellwith mild edema in the frontal ethmoid recesses bilaterally. Exam did reveal mild yellow secretions in his right frontal ethmoid recess. A culture swab was obtained for Infections Disease. He will continue to rinse twice per day with budesonide and continue use of Atrovent and Astelin. He is completing his antibiotics at the direction of infections Disease. We will plan on seeing him back in 6 months. He will reach out with any questions or concerns as they arise. All questions were answered and thepatient was agreeable to plan. Dex Matta APRN, C.N.P., M.S.N. Medication: Pharmacy: [facility]) [phone] Please e-prescribe if possible. If not possible please bring paper copy to placement secretary to fax. Thank you. Kecia documented in this encounter Plan of Treatment Upcoming Encounters Date Type Specialty Care Team Description 04/24/2022 Appointment Laboratory Medicine Angélica Granger P.A.-C. [address] [place] [phone] 04/25/2022 Office Visit Otorhinolaryngology Dex Matta APRN, C.N.P., M.S.N. [address] [place] [phone] 05/08/2022 Appointment Laboratory Medicine Angélica Granger P.A.-C. [address] [place] [phone] 05/08/2022 Clinical Admitting/Central Communication Scheduling 05/10/2022 Appointment Radiology Jeremie Rose M.D. [address] [place] [phone] 05/10/2022 Comprehensive Visit Orthopedic Surgery Warner Graves M.D. [address] [place] [phone] 05/22/2022 Appointment Laboratory Medicine Angélica Granger P.A.-C. [address] [place] [phone] 06/05/2022 Appointment Laboratory Medicine Angélica Granger P.A.-C. [address] [place] [phone] 06/19/2022 Appointment Laboratory Medicine Angélica Granger P.A.-C. [address] [place] [phone] 07/03/2022 Appointment Laboratory Medicine Angélica Granger P.A.-C. [address] [place] [phone] 07/17/2022 Appointment Laboratory Medicine Angélica Granger P.A.-C. [address] [place] [phone] 07/31/2022 Appointment Laboratory Medicine Angélica Granger P.A.-C. [address] [place] [phone] 08/14/2022 Appointment Laboratory Medicine Angélica Granger P.A.-C. [address] [place] [phone] 08/28/2022 Appointment Laboratory Medicine Angélica Granger P.A.-C. [address] [place] [phone] documented as of this encounter Visit Diagnoses Not on filedocumented in this encounter Additional Health Concerns Assessment Noted Time PHQ-9 Depression Total Score: 4 11/28/2020 10:17 AM CD T documented as of this encounter Care Teams Refinish Technician Relationship Specialty Start Date End Date Elsewhere, Pcp PCP - General Family Medicine 07/29/17 [facility] - Laboratory Medicine 04/12/[address] [address] documented as of this encounter
--- OUTSIDE RECORDS SUMMARY | 2022-04-13 11:53 | XMS_ITS | Encounter Summary ---
:1955 Author Organization [facility] Address [address] [place] [address] Care Team Providers Name Role Phone Elsewhere, Pcp Primary Care Provider Unavailable Encounter Details Date Type Department Care Team Description 02/27/2022 Hospital Encounter Department of Angélica Granger ant Liver (HCC); Laboratory Medicine J PDemetriusADurgaC. Medication Therapy [facility] Not Anticoa gulant in [address] [phone] [place], [place] [phone] (Work) [phone] Social History Tobacco Use Types Packs/Day Years [...] or relatives? How often do you attend holiness or More than 4 times per year 12/15/2021 gnosticist services? Do you belong to any clubs or No 12/15/2021 organizations such as holiness groups, unions, fraternal or athletic groups, or [...] place to sleep or slept in a chcf (including now)? Education Answer Date Recorded What is the highest level of school Associate degree: jennifer reyes, 12/14/2021 you have completed or the highest technical, or vocational p beatriz degree you have received? 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 coenzyme Q10 (CO Q-10) Take 1 capsule by 0 2017 200 mg capsule mouth daily. fluticasone propionate Administer 2 sprays 16 g 09/22 (FLONASE) 50 into each nostril mcg/actuation nasal daily. spray ipratropium (ATROVENT) INHALE 2 SPRAYS IN 30 mL 02/05 21 mcg (0.03 %) nasal EACH [...] or open Cytomegalovirus (HCC), capsules. Medication Therapy [facility] Not Anticoagulant NIFEdipine XL (PROCARDIA Take 20 mg by mouth 0 XL) 30 mg 24 hr tablet daily. ofloxacin (FLOXIN) 0.3 % Administer 5 drops 10 mL 3 otic into the right ear solutionIndications: 4 (four) times a Chondritis Pinna Right day. ondansetron (ZOFRAN) 4 Take 1 tablet (4 mg 20 tablet 0 /02/2021 mg tablet total) by mouth every 8 [...] mouth at bedtime as needed for sleep. voriconazole (VFEND) 200 Take 200 mg by 0 mg tablet mouth 2 (two) times a day. predniSONE (DELTASONE) Take 4 tabs (40mg) 40 tablet 0 02/0703/09/2022 10 mg tablet daily for 5 days, 2 tabs (20mg) daily for 5 days, 1 tab (10 mg) daily for 10 days. valGANciclovir (VALCYTE) Take 1 tablet (450 45 tablet 0 12/202103/27/2022 450 mg mg total) by mouth tabletIndications: every other day. Transplant Liver (HCC), take every 48 hours Medication Therapy Long after dialysis Term Not Anticoagulant, Infection Cytomegalovirus (HCC) qsryhwfacup-elqakxqph-ab Inhale 1 puff 60 each 3 02/08/20 22 03/04/2022 lanter (Trelegy Ellipta) daily. 200-62.5-25 mcg inhaler tacrolimus (PROGRAF) 0.5 Take 1 capsule (0.5 90 capsule 3 03/15/2022 mg capsuleIndications: mg total) by mouth Transplant Liver (HCC), daily. Medication Therapy Ch[facility] Not Anticoagulant documented as 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 [address] [place] [phone] 04/25/2022 Office Visit Otorhinolaryngology Dex Matta APRN, C.N.P., M.S.N. [address] [place] [phone] 05/08/2022 Appointment Laboratory Medicine Angélica Granger P.A.-C. [address] [place] [phone] 05/08/2022 Clinical Admitting/Central Communication Scheduling 05/10/2022 Appointment Radiology Jeremie Rose M.D. [address] [place] [phone] 05/10/2022 Comprehensive Visit Orthopedic Surgery Warner Graves M.D. [address] [place] [phone] 05/22/2022 Appointment Laboratory Medicine Angélica Granger P.A.-C. [address] [place] [phone] 06/05/2022 Appointment Laboratory Medicine Angélica Granger P.A.-C. [address] [place] [phone] 06/19/2022 Appointment Laboratory Medicine Angélica Granger P.A.-C. [address] [place] [phone] 07/03/2022 Appointment Laboratory Medicine Angélica Granger P.A.-C. [address] [place] [phone] 07/17/2022 Appointment Laboratory Medicine Angélica Granger P.A.-C. [address] [place] [phone] 07/31/2022 Appointment Laboratory Medicine Angélica Granger P.A.-C. [address] [place] [phone] 08/14/2022 Appointment Laboratory Medicine Angélica Granger P.A.-C. [address] [place] [phone] 08/28/2022 Appointment Laboratory Medicine Angélica Granger P.A.-C. [address] [place] [phone] documented as of this encounter Procedures Procedure Name Priority Date/Time Associated Diagnosis Comme nts GLUCOSE, FASTING, S/P Routine 02/27/2022 8:08 Transplant Liver Results for this AM CDT (HCC) procedure are in Medication Therapy the resul ts Poultry Hatchery Supervisor Not section. Anticoagulant CMV DNA DETECT/QUANT, Routine 02/27/2022 8:07 Transplant Liver Results for this P AM CDT (HCC) procedure are in Medication Therapy the resul ts [facility] Not section. Anticoagulant TACROLIMUS LEVEL, B Routine 02/27/2022 8:07 Transplant Liver R esults for this AM CDT (HCC) procedure are in Medication Therapy the resul ts Ch[facility] Not section. Anticoagulant CBC WITHOUT Routine 02/27/2022 8:07 Transplant Liver Results for this DIFFERENTIAL, B AM CDT (HCC) procedure are in Medication Therapy the resul ts [facility] Not section. Anticoagulant COMPREHENSIVE Routine 02/27/2022 8:07 Transplant Liver Results for this METABOLIC PANEL, S/P AM CDT (HCC) procedure are in Medication Therapy the resul ts Ch[facility] Not section. Anticoagulant documented in this encounter Results (ABNORMAL) Glucose, Fasting (02/27/2022 8:08 AM CDT) athologist Signature Glucose, P 122 (H) 70 - 100 02/27/2022 [facility] mg/dL 8:32 AM CDT Last Intake 12 hr 02/27/2022 [facility] 8:10 AM CDT Specimen Anatomical Collection Method Collection Time Receive d Time (Source) Location / / Volume Laterality Blood (Blood, 02/27/2022 8:08 AM 02/28/20 22 8:09 Venous) CDT AM CDT Angélica Granger P.A.-C. LAB BLOOD NON ADD-ON Performing Organization Address City/[facility] Code Phon e Number [address] [address] [place] [address] (ABNORMAL) Tacrolimus, B (02/27/2022 8:07 AM CDT) athologist Signature Tacrolimus, B 1.8 (L) 5.0-15.0 02/28/2022 [facility] (Trough) 11:05 AM CDT ng/mL Comment: ----ADDITIONAL INFORMATION---- Target steady-state trough concentration s vary depending on the type of transplant, concomitant immunosuppressio n, clinical/institutional protocols, and time post-transplant. Results should be interpreted in conjunction with this clinical information and any physic al signs/symptoms of rejection/toxicity. Testing performed by Liquid Chromatograp hy-Tandem Mass Spectrometry (LC-MS/MS). This test was developed and its performa nce characteristics determined by [facility] in a manner consistent with CLIA requirements. This test has not been cleared or approved by the U.S. Mer d and Drug Administration. Specimen Anatomical Collection Method Collection Time Receive d Time (Source) Location / / Volume Laterality Blood (Blood, 02/27/2022 8:07 AM 02/29/20 22 7:35 Venous) CDT AM CDT Angélica Granger P.A.-C. LAB BLOOD NON ADD-ON Performing Organization Address City/State/ZIP Code Phon e Number [facility] [address] [place], [place] [address] [place] [id number] [place] [address] [place] (ABNORMAL) CMV DNA Detect / Quant, Plasma (02/27/2022 8:07 AM CDT) Patholo gist Method Time Signature CMV DNA <35 (A) Undetected 02/28/2022 [facility] Detect/Quant, IU/mL 2:48 PM CDT P Comment: Result in log IU/mL is <1.54. CMV DNA is detected, but level present i s <35 IU/mL (<1.54 log IU/mL). This assay cannot accurately quantify CMV DNA below this level. ----ADDITIONAL INFORMATION---- The quantification range of this assay i s 35 to 10,000,000 IU/mL (1.54 log to 7.00 log IU/mL). Testing was performed u sing the tika CMV test ([employer] with the tika 6800 System. Specimen Anatomical Collection Method Collection Time Receive d Time (Source) Location / / Volume Laterality Blood (Blood, 02/27/2022 8:07 AM 02/29/20 7:15 Venous) CDT AM CDT Angélica Granger P.A.-C. LAB MICROBIOLOGY - BLOOD ORD ERABLES Performing Organization Address City/State/ZIP Code Phon e Number [facility] [address] [place], [place] [address] [facility] [place], [place] [phone] [place] [address] [place] (ABNORMAL) Comprehensive Metabolic Panel (02/27/2022 8:07 AM CDT) Analysis Performed At Patho logist Time Signature Potassium, P 4.2 3.6 - 5.2 02/27/2022 [facility] mmol/L 8:36 AM CDT Sodium, P 132 (L) 135 - 145 02/27/2022 [facility] mmol/L 8:36 AM CDT Chloride, P 96 (L) 98 - 107 02/27/2022 [facility] mmol/L 8:36 AM CDT Bicarbonate, P 22 22 - 29 02/27/2022 [facility] mmol/L 8:36 AM CDT Anion Gap, P 14 7 - 15 02/27/2022 [facility] 8:36 AM CDT BUN (Blood Urea 35 (H) 8 - 24 02/27/2022 [facility] Nitrogen), P mg/dL 8:36 AM CDT Creatinine 3.44 (H) 0.74 - 02/27/2022 [facility] 1.35 mg/dL 8:36 AM CDT Estimated GFR 19 (L) >=60 02/27/2022 [facility] (eGFR) mL/min/BSA 8:36 AM CDT Comment: Estimated GFR calculated using the 2020 CKD_EPI creatinine equation. Calcium, Total, P 8.9 8.8 - 10.2 mg/dL 02/27/2022 8:36 AM CDT [facility] Glucose, P CANCELED mg/dL 02/27/2022 8:10 AM CDT [facility] Comment: Duplicate test request. Result canceled by the ancillary. Protein, Total, P 6.8 6.3 - 7.9 g/dL 02/27/2022 8:36 A M CDT [facility] Albumin, P 4.2 3.5 - 5.0 g/dL 02/27/2022 8:36 AM CDT C NFL Aspartate Aminotransferase 24 8 - 48 U/L 02/27/2022 8 :36 AM CDT [facility] (AST), P Alkaline Phosphatase, P 143 (H) 40 - 129 U/L 02/27/2022 8: 36 AM CDT [facility] Alanine Aminotransferase 23 7 - 55 U/L 02/27/2022 8:3 6 AM CDT [facility] (ALT), P Bilirubin, Total, P 0.4 <=1.2 mg/dL 02/27/2022 8:36 AM CDT [facility] Specimen Anatomical Collection Method Collection Time Receive d Time (Source) Location / / Volume Laterality Blood (Blood, 02/27/2022 8:07 AM 02/28/20 8:10 Venous) CDT AM CDT Angélica Granger P.A.-C. LAB BLOOD ADD-ON Performing Organization Address City/State/ZIP Code Phon e Number [facility]- [address] [place] [address] [place] [address] (ABNORMAL) CBC without Differential (02/27/2022 8:07 AM CDT) [facility] gist Method Time Signature Hemoglobin 10.7 (L) 13.2 - 02/27/2022 [facility] 16.6 g/dL 8:21 AM CDT Hematocrit 33.4 (L) 38.3 - 02/27/2022 [facility] 48.6 % 8:21 AM CDT Erythrocytes 3.36 (L) 4.35 - 02/27/2022 [facility] 5.65 8:21 AM CDT x10(12)/L MCV 99.4 (H) 78.2 - 02/27/2022 [facility] 97.9 fL 8:21 AM CDT RBC Distrib Width 13.1 11.8 - 02/27/2022 [facility] 14.5 % 8:21 AM CDT Platelet Count 275 135 - 317 02/27/2022 [facility] x10(9)/L 8:21 AM CDT Leukocytes 6.2 3.4 - 9.6 02/27/2022 [facility] x10(9)/L 8:21 AM CDT Specimen Anatomical Collection Method Collection Time Receive d Time (Source) Location / / Volume Laterality Blood (Blood, 02/27/2022 8:07 AM 02/28/20 8:09 Venous) CDT AM CDT Angélica Granger P.A.-C. LAB BLOOD ADD-ON Performing Organization Address City/State/[facility] Code Phon e Number [facility] [address] [place] [address] [place] [address] [place] [address] System [address] documented in this encounter Visit Diagnoses Diagnosis Transplant Liver (HCC) Medication Therapy Poultry Hatchery Supervisor Not Anticoa gulant documented in this encounter Additional Health Concerns Assessment Noted Time PHQ-9 Depression Total Score: 4 11/28/2020 10:17 AM CD T documented as of this encounter Care Teams Assignment Officer Relationship Specialty Start Date End Date Elsewhere, Pcp PCP - General Family Medicine 07/29/17 [facility] - Laboratory Medicine 04/12/[address] [address] documented as of this encounter
--- OUTSIDE RECORDS SUMMARY | 2022-04-13 11:53 | XMS_ITS | Encounter Summary ---
:1955 Author Organization [facility] Address [address] [place] [address] Care Team Providers Name Role Phone Elsewhere, Pcp Primary Care Provider Unavailable Reason for Visit Reason Comments Med Refill Encounter Details Date Type Department Care Team Description 03/04/2022 Refill Division of Pulmonary Connie Aaron, Med Refill Medicine in [facility] [address] [facility] [address] [place] [address] [place] [phone] Social History Tobacco Use Types Packs/Day Years [...] More than 4 times per year 12/15/2021 orthodoxy services? Do you belong to any clubs or No 12/15/2021 organizations such as spiritism groups, unions, fraternal or athletic groups, or [...] place to sleep or slept in a long term (including now)? Education Answer Date Recorded What is the highest level of school Associate degree: jennifer reyes, 12/14/2021 you have completed or the highest technical, or vocational p rogram degree you have received? 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 Patient also messaged asking if you could sign this prescription. documented in this encounter Plan of Treatment Upcoming Encounters Date Type Specialty Care Team Description 04/24/2022 Appointment Laboratory Medicine Angélica Granger P.ADemetrius-CDemetrius [address] [place] [phone] 04/25/2022 Office Visit Otorhinolaryngology Dex Matta APRN, C.N.P., M.S.N. [address] [place] [phone] 05/08/2022 Appointment Laboratory Medicine Angélica Granger P.ADemetrius-CDemetrius [address] [place] [phone] 05/08/2022 Clinical Admitting/Central Communication Scheduling 05/10/2022 Appointment Radiology Jeremie Rose M.D. [address] [place] [phone] 05/10/2022 Comprehensive Visit Orthopedic Surgery Warner Graves M.D. [address] [place] [phone] 05/22/2022 Appointment Laboratory Medicine Angélica Granger P.A.-C. [address] [place] [phone] 06/05/2022 Appointment Laboratory Medicine Angélica Granger P.A.-C. [address] [place] [phone] 06/19/2022 Appointment Laboratory Medicine Angélica Granger P.A.-C. [address] [place] [phone] 07/03/2022 Appointment Laboratory Medicine Angélica Granger P.A.-C. [address] [place] [phone] 07/17/2022 Appointment Laboratory Medicine Angélica Granger P.A.-C. [address] [place] [phone] 07/31/2022 Appointment Laboratory Medicine Angélica Granger P.A.-C. [address] [place] [phone] 08/14/2022 Appointment Laboratory Medicine Angélica Granger P.A.-C. [address] [place] [phone] 08/28/2022 Appointment Laboratory Medicine Angélica Granger P.A.-C. [address] [place] [phone] documented as of this encounter Visit Diagnoses Not on filedocumented in this encounter Additional Health Concerns Assessment Noted Time PHQ-9 Depression Total Score: 4 11/28/2020 10:17 AM CD T documented as of this encounter Care Teams Beverage Distiller Relationship Specialty Start Date End Date Elsewhere, Pcp PCP - General Family Medicine 07/29/17 [facility] - Laboratory Medicine 04/12/[address] [address] documented as of this encounter
--- OUTSIDE RECORDS SUMMARY | 2022-04-13 11:53 | XMS_ITS | Encounter Summary ---
:1955 Author Organization [facility] Address [address] [place] [address] Care Team Providers Name Role Phone Elsewhere, Pcp Primary Care Provider Unavailable Encounter Details Date Type Department Care Team Description 02/20/2022 Hospital Encounter Department of Angélica Granger ant Liver (HCC); Laboratory Medicine Leena PColtC. Medication Therapy Fdc Not Anticoa gulant in [address] [address] [place], [place] [phone] (Work) [phone] Social History Tobacco Use Types Packs/Day Years [...] More than 4 times per year 12/15/2021 holiness services? 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 Medication Therapy Fdc Not Anticoagulant NIFEdipine XL (PROCARDIA Take 20 [...] dialysis Term Not Anticoagulant, Infection Cytomegalovirus (HCC) vmyzksyrefw-ukgciulva-ui Inhale 1 puff 60 each 3 02/08/20 22 03/04/2022 lanter (Trelegy Ellipta) daily. 200-62.5-25 mcg inhaler tacrolimus (PROGRAF) 0.5 Take 1 capsule (0.5 90 capsule 3 03/15/2022 mg capsuleIndications: mg total) by mouth Transplant Liver (HCC), daily. Medication Therapy Fdc Not Anticoagulant documented as 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 [address] [place] [address] 04/25/2022 Office Visit Otorhinolaryngology Dex Matta APRN, C.N.P., M.S.N. [address] [place] [phone] 05/08/2022 Appointment Laboratory Medicine Angélica Granger P.A.-C. [address] [place] [phone] 05/08/2022 Clinical Admitting/Central Communication Scheduling 05/10/2022 Appointment Radiology Jeremie Rose M.D. [address] [place] [phone] 05/10/2022 Comprehensive Visit Orthopedic Surgery Warner Graves M.D. [address] [place] [phone] 05/22/2022 Appointment Laboratory Medicine Angélica Granger P.A.-C. [address] [place] [phone] 06/05/2022 Appointment Laboratory Medicine Angélica Granger P.A.-C. [address] [place] [phone] 06/19/2022 Appointment Laboratory Medicine Angélica Granger P.A.-C. [address] [place] [phone] 07/03/2022 Appointment Laboratory Medicine Angélica Granger P.A.-C. [address] [place] [phone] 07/17/2022 Appointment Laboratory Medicine Angélica Granger P.A.-C. [address] [place] [phone] 07/31/2022 Appointment Laboratory Medicine Angélica Granger P.A.-C. [address] [place] [phone] 08/14/2022 Appointment Laboratory Medicine Angélica Granger P.A.-C. [address] [place] [phone] 08/28/2022 Appointment Laboratory Medicine Angélica Granger P.A.-C. [address] [place] [phone] documented as of this encounter Procedures Procedure Name Priority Date/Time Associated Diagnosis Comme nts CMV DNA DETECT/QUANT, Routine 02/20/2022 8:13 Transplant Liver Results for this P AM CDT (HCC) procedure are in Medication Therapy the resul ts Fdc Not section. Anticoagulant TACROLIMUS LEVEL, B Routine 02/20/2022 8:13 Transplant Liver R esults for this AM CDT (HCC) procedure are in Medication Therapy the resul ts Boring And Filling Machine Operator Not section. Anticoagulant CBC WITHOUT Routine 02/20/2022 8:13 Transplant Liver Results for this DIFFERENTIAL, B AM CDT (HCC) procedure are in Medication Therapy the resul ts Fdc Not section. Anticoagulant GLUCOSE, FASTING, S/P Routine 02/20/2022 8:13 Transplant Liver Results for this AM CDT (HCC) procedure are in Medication Therapy the resul ts Fdc Not section. Anticoagulant COMPREHENSIVE Routine 02/20/2022 8:13 Transplant Liver Results for this METABOLIC PANEL, S/P AM CDT (HCC) procedure are in Medication Therapy the resul ts Fdc Not section. Anticoagulant documented in this encounter Results (ABNORMAL) Tacrolimus, B (02/20/2022 8:13 AM CDT) athologist Signature Tacrolimus, B 1.7 (L) 5.0-15.0 02/21/2022 SDSC (Trough) 10:46 AM CDT ng/mL Comment: ----ADDITIONAL INFORMATION---- Target [...] performa nce characteristics determined by [facility] in a manner consistent with CLIA requirements. This test has not been cleared or approved by the U.S. Mer d and Drug Administration. Specimen Anatomical Collection Method Collection Time Receive d Time (Source) Location / / Volume Laterality Blood (Blood, 02/20/2022 8:13 AM 02/22/20 22 7:33 Venous) CDT AM CDT Angélica Granger P.A.-C. LAB BLOOD NON ADD-ON Performing Organization Address [facility] Phon e Number [address] MURILLO [place] [address] MURILLO CMV DNA Detect / Quant, Plasma (02/20/2022 8:13 AM CDT) [facility] Method Time Signature CMV DNA Undetected Undetected 02/21/2022 [facility] Detect/Quant, IU/mL 12:53 PM P CDT Comment: Result in log IU/mL is Undetected. ----ADDITIONAL INFORMATION---- The quantification range of this assay i s 35 to 10,000,000 IU/mL (1.54 log to 7.00 log IU/mL). Testing was performed u sing the tika CMV test ([employer] with the tika [id number] System. Specimen Anatomical Collection Method Collection Time Receive d Time (Source) Location / / Volume Laterality Blood (Blood, 02/20/2022 8:13 AM 02/22/20 22 7:13 Venous) CDT AM CDT Angélica Granger P.A.-C. LAB MICROBIOLOGY - BLOOD ORD ERABLES Performing Organization Address City/[facility] Phon e Number [address] MURILLO [place], [place] [address] MURILLO (ABNORMAL) Glucose, Fasting (02/20/2022 8:13 AM CDT) P athologist Signature Glucose, P 128 (H) 70 - 100 02/20/2022 [facility] mg/dL 9:30 AM CDT Last Intake 12 hr 02/20/2022 [facility] 8:15 AM CDT Specimen Anatomical Collection Method Collection Time Receive d Time (Source) Location / / Volume Laterality Blood (Blood, 02/20/2022 8:13 AM 02/21/20 8:15 Venous) CDT AM CDT Angélica Granger P.A.-C. LAB BLOOD NON ADD-ON Performing Organization Address City/State/ZIP Code Phon e Number [phone] [place] [address] [place] [address] (ABNORMAL) Comprehensive Metabolic Panel (02/20/2022 8:13 AM CDT) Analysis Performed At Patho logist Time Signature Potassium, P 4.7 3.6 - 5.2 02/20/2022 [facility] mmol/L 9:32 AM CDT Sodium, P 130 (L) 135 - 145 02/20/2022 [facility] mmol/L 9:32 AM CDT Chloride, P 94 (L) 98 - 107 02/20/2022 [facility] mmol/L 9:32 AM CDT Bicarbonate, P 22 22 - 29 02/20/2022 [facility] mmol/L 9:32 AM CDT Anion Gap, P 14 7 - 15 02/20/2022 [facility] 9:32 AM CDT BUN (Blood Urea 42 (H) 8 - 24 02/20/2022 [facility] Nitrogen), P mg/dL 9:32 AM CDT Creatinine 3.49 (H) 0.74 - 02/20/2022 [facility] 1.35 mg/dL 9:32 AM CDT Estimated GFR 18 (L) >=60 02/20/2022 [facility] (eGFR) mL/min/BSA 9:32 AM CDT Comment: Estimated GFR calculated using the 2020 CKD_EPI creatinine equation. Calcium, Total, P 8.8 8.8 - 10.2 mg/dL 02/20/2022 9:32 AM CDT [facility] Glucose, P CANCELED mg/dL 02/20/2022 8:15 AM CDT [facility] Comment: Duplicate test request. Result canceled by the ancillary. Protein, Total, P 6.5 6.3 - 7.9 g/dL 02/20/2022 9:32 A M CDT [facility] Albumin, P 4.0 3.5 - 5.0 g/dL 02/20/2022 9:32 AM CDT C NFL Aspartate Aminotransferase 23 8 - 48 U/L 02/20/2022 9 :32 AM CDT [facility] (AST), P Alkaline Phosphatase, P 147 (H) 40 - 129 U/L 02/20/2022 9: 32 AM CDT [facility] Alanine Aminotransferase 25 7 - 55 U/L 02/20/2022 9:3 2 AM CDT [facility] (ALT), P Bilirubin, Total, P 0.4 <=1.2 mg/dL 02/20/2022 9:32 AM CDT [facility] Specimen Anatomical Collection Method Collection Time Receive d Time (Source) Location / / Volume Laterality Blood (Blood, 02/20/2022 8:13 AM 02/21/20 8:15 Venous) CDT AM CDT Angélica Granger P.A.-C. LAB BLOOD ADD-ON Performing Organization Address City/State/[facility] Code Phon e Number [facility] [address] [place] [phone] [place] [address] [place] [address] (ABNORMAL) CBC without Differential (02/20/2022 8:13 AM CDT) [facility] Method Time Signature Hemoglobin 11.1 (L) 13.2 - 02/20/2022 [facility] 16.6 g/dL 9:16 AM CDT Hematocrit 33.6 (L) 38.3 - 02/20/2022 [facility] 48.6 % 9:16 AM CDT Erythrocytes 3.45 (L) 4.35 - 02/20/2022 [facility] 5.65 9:16 AM CDT x10(12)/L MCV 97.4 78.2 - 02/20/2022 [facility] 97.9 fL 9:16 AM CDT RBC Distrib Width 13.0 11.8 - 02/20/2022 [facility] 14.5 % 9:16 AM CDT Platelet Count 312 135 - 317 02/20/2022 [facility] x10(9)/L 9:16 AM CDT Leukocytes 8.8 3.4 - 9.6 02/20/2022 [facility] x10(9)/L 9:16 AM CDT Specimen Anatomical Collection Method Collection Time Receive d Time (Source) Location / / Volume Laterality Blood (Blood, 02/20/2022 8:13 AM 02/21/20 22 8:15 Venous) CDT AM CDT Angélica Granger P.A.-C. LAB BLOOD ADD-ON Performing Organization Address City/State/ZIP Code Phon e Number [facility]- [address] [place] [phone] [place] [address] documented in this encounter Visit Diagnoses Diagnosis Transplant Liver (HCC) Medication Therapy Boring And Filling Machine Operator Not Anticoa gulant documented in this encounter Additional Health Concerns Assessment Noted Time PHQ-9 Depression Total Score: 4 11/28/2020 10:17 AM CD T documented as of this encounter Care Teams Lay Out Drafter Relationship Specialty Start Date End Date Elsewhere, Pcp PCP - General Family Medicine 07/29/17 [facility] - Laboratory Medicine 04/12/20 [place] [phone] documented as of this encounter
--- OUTSIDE RECORDS SUMMARY | 2022-04-13 11:53 | XMS_ITS | Encounter Summary ---
:1955 Author Organization [facility] Address [address] [place] [address] Care Team Providers Name Role Phone Elsewhere, Pcp Primary Care Provider Unavailable Encounter Details Date Type Department Care Team Description 03/15/2022 Clinical Communication Department of Prescheduling, Orthopedic Surgery in [place], [place] [address] [place] [address] Social History Tobacco Use Types Packs/Day Years [...] or relatives? How often do you attend anabaptist or More than 4 times per year 12/15/2021 druze services? 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 [address] [place] [address] [phone] 04/25/2022 Office Visit Otorhinolaryngology Dex Matta, LAUNDROMAT WORKER, C.N.P., M.S.N. [address] [place] [address] [phone] 05/08/2022 Appointment Laboratory Medicine Angélica Granger, P.A.-C. [address] [place] [address] [phone] 05/08/2022 Clinical Admitting/Central Communication Scheduling 05/10/2022 Appointment Radiology Jeremie Rose M.D. [address] [place] [address] [phone] 05/10/2022 Comprehensive Visit Orthopedic Surgery Warner Graves M.D. [address] [place] [phone] 05/22/2022 Appointment Laboratory Medicine Angélica Granger P.A.-C. [address] [place] [phone] 06/05/2022 Appointment Laboratory Medicine Angélica Granger P.A.-C. [address] [place] [phone] 06/19/2022 Appointment Laboratory Medicine Angélica Granger P.A.-C. [address] [place] [phone] 07/03/2022 Appointment Laboratory Medicine Angélica Granger P.A.-C. [address] [place] [phone] 07/17/2022 Appointment Laboratory Medicine Angélica Granger P.A.-C. [address] [place] [phone] 07/31/2022 Appointment Laboratory Angélica Royal P.A.-C. [address] [place] [phone] 08/14/2022 Appointment Laboratory Angélica Royal P.A.-C. [address] [place] [phone] 08/28/2022 Appointment Laboratory Angélica Royal P.A.-C. [address] [place] [phone] documented as of this encounter Visit Diagnoses Not on filedocumented in this encounter Additional Health Concerns Assessment Noted Time PHQ-9 Depression Total Score: 4 11/28/2020 10:17 AM CD T documented as of this encounter Care Teams Loftsman/Woman Relationship Specialty Start Date End Date Elsewhere, Pcp PCP - General Family Medicine 07/29/17 [facility] - Laboratory Medicine 04/12/20 [place] [phone] documented as of this encounter
--- OUTSIDE RECORDS SUMMARY | 2022-04-13 11:53 | XMS_ITS | Encounter Summary ---
:1955 Author Organization [facility] Address [address] [place] [address] Care Team Providers Name Role Phone Elsewhere, Pcp Primary Care Provider Unavailable Encounter Details Date Type Department Care Team Description 03/15/2022 Clinical Communication Department of Prescheduling, Orthopedic Surgery in [place], [place] [address] [place] [phone] Social History Tobacco Use Types Packs/Day Years [...] More than 4 times per year 12/15/2021 cheondoism services? Do you belong to any clubs [...] place to sleep or slept in a snf (including now)? Education Answer Date Recorded What is the highest level of school Associate degree: renukakeyana reyes, 12/14/2021 you have completed or the highest technical, or vocational p beatriz degree you have received? 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 [address] [place] [address] [phone] 04/25/2022 Office Visit Otorhinolaryngology Dex Matta, CARD PUNCHING MACHINE OPERATOR, C.N.P., M.S.N. [address] [place] [phone] 05/08/2022 Appointment Laboratory Medicine Angélica Granger, P.A.-C. [address] [place] [address] [phone] 05/08/2022 Clinical Admitting/Central Communication Scheduling 05/10/2022 Appointment Radiology Jeremie Rose M.D. [address] [place] [address] [phone] 05/10/2022 Comprehensive Visit Orthopedic Surgery Warner Graves M.D. [address] [place] [phone] 05/22/2022 Appointment Laboratory Medicine Angélica Granger P.A.-C. [address] [place] [phone] 06/05/2022 Appointment Laboratory Medicine Angélica Granger P.A.-C. [address] [place] [phone] 06/19/2022 Appointment Laboratory Medicine Angélica Granger P.A.-C. [address] [place] [phone] 07/03/2022 Appointment Laboratory Medicine Angélica Granger P.A.-C. [address] [place] [phone] 07/17/2022 Appointment Laboratory Medicine Angélica Granger P.A.-C. [address] [place] [phone] 07/31/2022 Appointment Laboratory Angélica Royal P.A.-C. [address] [place] [phone] 08/14/2022 Appointment Laboratory Angélica Royal P.A.-C. [address] [place] [phone] 08/28/2022 Appointment Laboratory Angélica Royal P.A.-C. [address] [place] [phone] documented as of this encounter Visit Diagnoses Not on filedocumented in this encounter Additional Health Concerns Assessment Noted Time PHQ-9 Depression Total Score: 4 11/28/2020 10:17 AM CD T documented as of this encounter Care Teams Octave Board Assembler Relationship Specialty Start Date End Date Elsewhere, Pcp PCP - General Family Medicine 07/29/17 [facility] - Laboratory Medicine 04/12/20 [place] [phone] documented as of this encounter
--- OUTSIDE RECORDS SUMMARY | 2022-04-13 11:53 | XMS_ITS | Encounter Summary ---
:1955 Author Organization [facility] Address [address] [place] [address] Care Team Providers Name Role Phone Elsewhere, Pcp Primary Care Provider Unavailable Reason for Visit Reason Comments Labs Only Encounter Details Date Type Department Care Team Description 02/21/2022 Clinical Communication Ierna Gamez [facility] Labs Only Center for R, R.N. Transplantation and [address] [place] [address] Clinical Regeneration in [place], [place] [phone] [place] [address] [place] [phone] (Work) [phone] Social History Tobacco Use Types Packs/Day Years [...] More than 4 times per year 12/15/2021 jew services? 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 - 02/21/2022 4:55 PM CDT Please review labs below. Bruce [...] Prednisone 5 mg daily Labs: Recent Labs 02/20/22 0813 02/13/22 0747 02/06/22 0806 01/30/22 0804 01/23/22 0811 01/16/22 0809 TACROLIMUS 1.7 L 1.2 L 1.5 L 2.7 L 1.4 L 2.2 L Recent Labs 02/20/22 0813 02/13/22 0747 02/06/22 0806 12/19/21 0835 12/03/21 0756 12/03/21 0755 HGB 11.1 L 11.4 L 11.7 L < > -- 9.8 L HCT 33.6 L 34.4 L 35.6 L < > -- 31.1 L WBC 8.8 12.3 H 8.2 < > -- 3.9 NEUTROPHILS -- -- -- -- -- See manual differential PLT 312 394 H 344 H < > -- 292 NA 130 L 130 L 132 L < > -- 138 KPLASMA 4.7 4.3 3.9 < > -- 3.9 MG -- -- -- -- -- 2.3 GLUCOSE CANCELED 128 H CANCELED 223 H CANCELED 127 H < > -- 110 HGBA1C -- -- -- -- 5.6 -- BUN 42 H 39 H 29 H < > -- 45 H CREATININE 3.49 H 3.49 H 3.47 H < > -- 4.03 H EGFR 18 L 18 L -- -- -- -- ALKPHOS 147 H 188 H 177 H < > -- 107 AST 23 28 28 < > -- 21 ALT 25 38 32 < > -- 17 BILITOT 0.4 0.3 0.4 < > -- 0.3 BILIDIR -- -- -- -- -- <0.2 PT -- -- -- -- 11.1 -- INR -- -- -- -- 1.0 -- ALBUMIN 4.0 4.2 4.1 < > -- 4.2 < > = values in this interval not displayed. Serologies: Recent Labs 02/20/22 0813 02/13/22 0746 02/06/22 0806 01/30/22 0804 CMVQUANT Undetected Undetected <35 A Undetected No results for input(s): EBVDNADETQUP, EBVDNADETQUA, EBVQU, EBVCOPIES, EBVPCRQUANT in the last 2190 hours. No lab exists for component: SEBV Recent Labs 12/05/21 0722 HEPBANTSCRN Negative HEPBSABSCRN Positive HEPBCABSCRN Negative Immunosuppression Goal Range: 1.5-4 Current Lab Frequency: weekly Please advise on any changes or recommendations. Thanks, Yolie Dubois R.N. *All labs are now found in [employer] - Lab - Flowsheets. For further review of labs, please review there or under Synopsis* documented in this encounter Plan of Treatment Upcoming Encounters Date Type Specialty Care Team Description 04/24/2022 Appointment Laboratory Medicine Angélica Granger, P.A.-C. [address] [place] [phone] 04/25/2022 Office Visit Otorhinolaryngology Dex Matta, RAMONA, C.N.P., M.S.N. [address] [place] [address] [phone] 05/08/2022 Appointment Laboratory Medicine Angélica Granger P.A.-C. [address] [place] [phone] 05/08/2022 Clinical Admitting/Central Communication Scheduling 05/10/2022 Appointment Radiology Jeremie Rose M.D. [address] [place] [phone] 05/10/2022 Comprehensive Visit Orthopedic Surgery Warner Graves M.D. [address] [place] [address] [phone] 05/22/2022 Appointment Laboratory Medicine Angélica Granger P.A.-C. [address] [place] [phone] 06/05/2022 Appointment Laboratory Medicine Angélica Granger P.A.-C. [address] [place] [phone] 06/19/2022 Appointment Laboratory Medicine Angélica Granger P.A.-C. [address] [place] [phone] 07/03/2022 Appointment Laboratory Medicine Angélica Granger P.A.-C. [address] [place] [phone] 07/17/2022 Appointment Laboratory Medicine Angélica Granger P.A.-C. [address] [place] [phone] 07/31/2022 Appointment Laboratory Angélica Royal P.A.-C. [address] [place] [phone] 08/14/2022 Appointment Laboratory Angélica Royal P.A.-C. [address] [place] [phone] 08/28/2022 Appointment Laboratory Angélica Royal P.A.-C. [address] [place] [phone] documented as of this encounter Visit Diagnoses Not on filedocumented in this encounter Additional Health Concerns Assessment Noted Time PHQ-9 Depression Total Score: 4 11/28/2020 10:17 AM CD T documented as of this encounter Care Teams Mechanical Manufacturing Engineer Relationship Specialty Start Date End Date Elsewhere, Pcp PCP - General Family Medicine 07/29/17 [facility] - Laboratory Medicine 04/12/20 [place] [phone] documented as of this encounter
--- OUTSIDE RECORDS SUMMARY | 2022-04-13 11:53 | XMS_ITS | Encounter Summary ---
:1955 Author Organization [facility] Address [address] [place] [address] Care Team Providers Name Role Phone Elsewhere, Pcp Primary Care Provider Unavailable Reason for Visit Reason Comments Pulmonary Clearance Encounter Details Date Type Department Care Team Description 02/18/2022 Clinical Communication Division of Lizzeth Aaron Pulmonary Medicine Connie Hernandez in [facility] [address] [facility] [address] [place] [phone] Social History Tobacco Use Types Packs/Day Years [...] or relatives? How often do you attend synagogue or More than 4 times per year 12/15/2021 druze services? Do you belong to any clubs or No 12/15/2021 organizations such as synagogue groups, unions, fraternal or athletic groups, or [...] place to sleep or slept in a retirement (including now)? Education Answer Date Recorded What is the highest level of school Associate degree: jennifer reyes, 12/14/2021 you have completed or the highest technical, or vocational p cheriram degree you have received? 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 He would like a call to discuss. Action Requested: Callback Additional Notes: documented in this encounter Plan of Treatment Upcoming Encounters Date Type Specialty Care Team Description 04/24/2022 Appointment Laboratory Medicine Angélica Granger P.ASky 200 [place] [address] 04/25/2022 Office Visit Otorhinolaryngology Dex Matta APRN, C.N.P., M.S.N. [address] [place] [phone] 05/08/2022 Appointment Laboratory Medicine Angélica Granger P.A.-C. [address] [place] [phone] 05/08/2022 Clinical Admitting/Central Communication Scheduling 05/10/2022 Appointment Radiology Jeremie Rose M.D. [address] [place] [phone] 05/10/2022 Comprehensive Visit Orthopedic Surgery Warner Graves M.D. [address] [place] [phone] 05/22/2022 Appointment Laboratory Medicine Angélica Granger P.A.-C. [address] [place] [phone] 06/05/2022 Appointment Laboratory Medicine Angélica Granger P.A.-C. [address] [place] [phone] 06/19/2022 Appointment Laboratory Medicine Angélica Granger P.A.-C. [address] [place] [phone] 07/03/2022 Appointment Laboratory Medicine Angélica Granger P.A.-C. [address] [place] [phone] 07/17/2022 Appointment Laboratory Medicine Angélica Granger P.A.-C. [address] [place] [phone] 07/31/2022 Appointment Laboratory Medicine Angélica Granger P.A.-C. [address] [place] [address] 08/14/2022 Appointment Laboratory Medicine Angélica Granger P.A.-C. [address] [place] [address] 08/28/2022 Appointment Laboratory Medicine Angélica Granger P.A.-C. [address] [place] [address] documented as of this encounter Visit Diagnoses Not on filedocumented in this encounter Additional Health Concerns Assessment Noted Time PHQ-9 Depression Total Score: 4 11/28/2020 10:17 AM CD T documented as of this encounter Care Teams Cooler Worker Relationship Specialty Start Date End Date Elsewhere, Pcp PCP - General Family Medicine 07/29/17 [facility] - Laboratory Medicine 04/12/[address] [address] documented as of this encounter
--- OUTSIDE RECORDS SUMMARY | 2022-04-13 11:53 | XMS_ITS | Encounter Summary ---
:1955 Author Organization [facility] Address [address] [place] [address] Care Team Providers Name Role Phone Elsewhere, Pcp Primary Care Provider Unavailable Reason for Visit Reason Comments Labs Only Encounter Details Date Type Department Care Team Description 02/28/2022 Clinical Communication Irena Gamez [facility] Labs Only [facility] R.N. Transplantation and [address] [place] [address] Clinical Regeneration in [place], [place] [address] [place] [address] [place] [address] (Work) [phone] Social History Tobacco Use Types Packs/Day Years [...] place to sleep or slept in a halfway (including now)? Education Answer Date Recorded What is the highest level of school Associate degree: jennifer reyes, 12/14/2021 you have completed or the highest technical, or vocational p beatriz degree you have received? 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 - 02/28/2022 3:04 PM CDT Please review labs below. Bruce [...] Prednisone 5 mg daily Labs: Recent Labs 02/27/22 0807 02/20/22 0813 02/13/22 0747 02/06/22 0806 01/30/22 0804 01/23/22 0811 TACROLIMUS 1.8 L 1.7 L 1.2 L 1.5 L 2.7 L 1.4 L Recent Labs 02/27/22 0808 02/27/22 0807 02/20/22 0813 02/13/22 0747 12/19/21 0835 12/03/21 0756 12/03/21 0755 HGB -- 10.7 L 11.1 L 11.4 L < > -- 9.8 L HCT -- 33.4 L 33.6 L 34.4 L < > -- 31.1 L WBC -- 6.2 8.8 12.3 H < > -- 3.9 NEUTROPHILS -- -- -- -- -- -- See manual differential PLT -- 275 312 394 H < > -- 292 NA -- 132 L 130 L 130 L < > -- 138 KPLASMA -- 4.2 4.7 4.3 < > -- 3.9 MG -- -- -- -- -- -- 2.3 GLUCOSE 122 H CANCELED CANCELED 128 H CANCELED 223 H < > -- 110 HGBA1C -- -- -- -- -- 5.6 -- BUN -- 35 H 42 H 39 H < > -- 45 H CREATININE -- 3.44 H 3.49 H 3.49 H < > -- 4.03 H EGFR -- 19 L 18 L 18 L -- -- -- ALKPHOS -- 143 H 147 H 188 H < > -- 107 AST -- 24 23 28 < > -- 21 ALT -- 23 25 38 < > -- 17 BILITOT -- 0.4 0.4 0.3 < > -- 0.3 BILIDIR -- -- -- -- -- -- <0.2 PT -- -- -- -- -- 11.1 -- INR -- -- -- -- -- 1.0 -- ALBUMIN -- 4.2 4.0 4.2 < > -- 4.2 < > = values in this interval not displayed. Serologies: Recent Labs 02/27/22 0807 02/20/22 0813 02/13/22 0746 02/06/22 0806 CMVQUANT <35 A Undetected Undetected <35 A No results for input(s): EBVDNADETQUP, EBVDNADETQUA, EBVQU, EBVCOPIES, EBVPCRQUANT in the last 2190 hours. No lab exists for component: SEBV Recent Labs 12/05/21 0722 HEPBANTSCRN Negative HEPBSABSCRN Positive HEPBCABSCRN Negative Immunosuppression Goal Range: 1.5-4 Current Lab Frequency: weekly Please advise on any changes or recommendations. ThanksYolie R.N. *All labs are now found in [facility] - Lab - Flowsheets. For further review of labs, please review there or under Synopsis* documented in this encounter Plan of Treatment Upcoming Encounters Date Type Specialty Care Team Description 04/24/2022 Appointment Laboratory Medicine Angélica Granger P.A.-CDemetrius [address] [place] [phone] 04/25/2022 Office Visit Otorhinolaryngology Dxe Matta APRN, C.N.P., M.S.N. [address] [place] [phone] 05/08/2022 Appointment Laboratory Medicine Angélica Granger P.A.-CDemetrius [address] [place] [address] [phone] 05/08/2022 Clinical Admitting/Central Communication Scheduling 05/10/2022 Appointment Radiology Jeremie Rose M.D. [address] [place] [phone] 05/10/2022 Comprehensive Visit Orthopedic Surgery Warner Graves M.D. [address] [place] [phone] 05/22/2022 Appointment Laboratory Medicine Angélica Granger P.A.-C. [address] [place] [phone] 06/05/2022 Appointment Laboratory Medicine Angélica Granger P.A.-C. [address] [place] [phone] 06/19/2022 Appointment Laboratory Medicine Angélica Granger P.A.-C. [address] [place] [phone] 07/03/2022 Appointment Laboratory Medicine Angélica Granger P.A.-C. [address] [place] [phone] 07/17/2022 Appointment Laboratory Medicine Angélica Granger P.A.-C. [address] [place] [phone] 07/31/2022 Appointment Laboratory Medicine Angélica Granger P.A.-C. [address] [place] [phone] 08/14/2022 Appointment Laboratory Medicine Angélica Granger P.A.-C. [address] [place] [phone] 08/28/2022 Appointment Laboratory Medicine Angélica Granger P.A.-C. [address] [place] [phone] documented as of this encounter Visit Diagnoses Not on filedocumented in this encounter Additional Health Concerns Assessment Noted Time PHQ-9 Depression Total Score: 4 11/28/2020 10:17 AM CD T documented as of this encounter Care Teams Assembler Clip On Sunglasses Relationship Specialty Start Date End Date Elsewhere, Pcp PCP - General Family Medicine 07/29/17 [facility] - Laboratory Medicine 04/12/20 [place] [phone] documented as of this encounter
--- OUTSIDE RECORDS SUMMARY | 2022-04-13 11:53 | XMS_ITS | Encounter Summary ---
:1955 Author Organization [facility] Address [address] [place] [address] Care Team Providers Name Role Phone Elsewhere, Pcp Primary Care Provider Unavailable Encounter Details Date Type Department Care Team Description 03/04/2022 Orders Only Department of Leonid Wu Otorhinolaryngology in [place] Walker [place], [place] [address] [facility] [address] [place] [phone] (Wo rk) Social History Tobacco Use Types Packs/Day Years [...] or relatives? How often do you attend caodaism or More than 4 times per year 12/15/2021 yazidi services? Do you belong to any clubs or No 12/15/2021 organizations such as caodaism groups, unions, fraternal or athletic groups, or [...] the highest level of school Associate degree: occupkeyana reyes, 12/14/2021 you have completed or the highest technical, or vocational p beatriz degree you have received? 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 [address] [place] [phone] 05/08/2022 Appointment Laboratory Medicine Angélica Granger P.A.-CDemetrius [address] [place] [phone] 05/08/2022 Clinical Admitting/Central Communication Scheduling 05/10/2022 Appointment Radiology Jeremie Rose M.D. [address] [place] [phone] 05/10/2022 Comprehensive Visit Orthopedic Surgery Warner Graves M.D. [address] [place] [phone] 05/22/2022 Appointment Laboratory Medicine Angélica Granger P.A.-CDemetrius [address] [place] [phone] 06/05/2022 Appointment Laboratory Medicine Angélica Granger P.A.-C. [address] [place] [phone] 06/19/2022 Appointment Laboratory Medicine Angélica Granger P.A.-C. [address] [place] [phone] 07/03/2022 Appointment Laboratory Medicine Angélica Granger P.A.-C. [address] [place] [phone] 07/17/2022 Appointment Laboratory Medicine Angélica Granger P.A.-C. [address] [place] [phone] 07/31/2022 Appointment Laboratory Medicine Angélica Granger P.A.-C. [address] [place] [phone] 08/14/2022 Appointment Laboratory Medicine Angélica Granger P.A.-C. [address] [place] [phone] 08/28/2022 Appointment Laboratory Medicine Angélica Granger P.A.-C. [address] [place] [phone] documented as of this encounter Visit Diagnoses Not on filedocumented in this encounter Additional Health Concerns Assessment Noted Time PHQ-9 Depression Total Score: 4 11/28/2020 10:17 AM CD T documented as of this encounter Care Teams Bottom Brusher Relationship Specialty Start Date End Date Elsewhere, Pcp PCP - General Family Medicine 07/29/17 [facility] - Laboratory Medicine 04/12/20 [place] [phone] documented as of this encounter
--- OUTSIDE RECORDS SUMMARY | 2022-04-13 11:53 | XMS_ITS | Encounter Summary ---
:1955 Author Organization [facility] Address [address] [place] [address] Care Team Providers Name Role Phone Elsewhere, Pcp Primary Care Provider Unavailable Reason for Referral MRI/CAT/PET Scan (Routine) - Closed Specialty Diagnoses / Procedures Referred By Contact Refer red To Contact Radiology Diagnoses Pneumonia Fungal Chronic Obstructive Pulmonary Disease Without Exacerbation (HCC) Lung Interstitial Disease (HCC) Trung Plasencia P.A.-C., [facility] Procedures CT Chest without IV Contrast M.S. 200 [place] [address] Referral ID Status Reason Start Date Expiration Date Visits Requ ested Visits Authorized [id number] Closed 03/13/2022 03/13/2023 1 1 Reason for Visit MRI/CAT/PET Scan (Routine) - Closed Specialty Diagnoses / Procedures Referred By Contact Refer red To Contact Radiology Diagnoses Pneumonia Fungal Chronic Obstructive Pulmonary Disease Without Exacerbation (HCC) Lung Interstitial Disease (HCC) Trung Plasencia P.A.-C., [facility] Procedures CT Chest without IV Contrast M.S. 200 [place], [place] [phone] Referral ID Status Reason Start Date Expiration Date Visits Requ ested Visits Authorized [id number] Closed 03/13/2022 03/13/2023 1 1 Encounter Details Date Type Department Care Team Description 03/13/2022 Hospital Encounter Department of Trung Plasencia Fungal; Radiology, [facility] P.A.-C., Chronic Obs tructive Pulmonary Disease Without Exacerbation (HCC); Building, in [place]. Lung Interstitial Disease (HCC) [place], [place] [address] [place] [phone] Social History Tobacco Use Types Packs/Day Years [...] or relatives? How often do you attend mormon or More than 4 times per year 12/15/2021 hoahaoism services? Do you belong to any clubs or No 12/15/2021 organizations such as mormon groups, unions, fraternal or athletic groups, or [...] place to sleep or slept in a usp (including now)? Education Answer Date Recorded What is the highest level of school Associate degree: jennifer reyes, 12/14/2021 you have completed or the highest technical, or vocational p cheriram degree you have received? 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 Medication Therapy Skilled Nursing Not Anticoagulant NIFEdipine XL (PROCARDIA Take 20 [...] Take 1 tablet (100 90 tablet 3 /12/202108/27/2022 mg tablet mg total) by mouth at [...] mouth Transplant Liver (HCC), daily. Medication Therapy Healthcare Management Not Anticoagulant documented as of this encounter Plan of Treatment Upcoming Encounters Date Type Specialty Care Team Description 04/24/2022 Appointment Laboratory Medicine Angélica Granger, P.A.-CDemetrius [address] [place] [phone] 04/25/2022 Office Visit Otorhinolaryngology Dex Matta APRN, C.N.P., M.S.N. [address] [place] [phone] 05/08/2022 Appointment Laboratory Medicine Angélica Granger P.A.-CDemetrius [address] [place] [phone] 05/08/2022 Clinical Admitting/Central Communication Scheduling 05/10/2022 Appointment Radiology Jeremie Rose M.D. [address] [place] [phone] 05/10/2022 Comprehensive Visit Orthopedic Surgery Warner Graves M.D. [address] [place] [phone] 05/22/2022 Appointment Laboratory Medicine Angélica Granger P.A.-C. [address] [place] [phone] 06/05/2022 Appointment Laboratory Medicine Angélica Granger P.A.-C. [address] [place] [phone] 06/19/2022 Appointment Laboratory Medicine Angélica Granger P.A.-C. [address] [place] [phone] 07/03/2022 Appointment Laboratory Medicine Angélica Granger P.A.-C. [address] [place] [phone] 07/17/2022 Appointment Laboratory Medicine Angélica Granger P.A.-C. [address] [place] [phone] 07/31/2022 Appointment Laboratory Medicine Angélica Granger P.A.-C. [address] [place] [phone] 08/14/2022 Appointment Laboratory Medicine Angélica Granger P.A.-C. [address] [place] [phone] 08/28/2022 Appointment Laboratory Medicine Angélica Granger P.A.-C. [address] [place] [phone] documented as of this encounter Procedures Procedure Name Priority Date/Time Associated Comments Diagnosis CT CHEST WITHOUT RAD - Routine 03/13/2022 2:29 Pneumonia Funga l Results for this IV CONTRAST (most inpatients PM CDT Chronic Obstructive proc edure are in and all Pulmonary Disease the result s outpatients) Without section. Exacerbation (HC C) Lung Interstitial Disease (HCC) documented in this encounter Results CT Chest without IV Contrast (03/13/2022 2:29 PM CDT) Anatomical Region Laterality Modality Chest, Thoracic RST [...] Trung Plasencia P.A.-C., M.S. IMG CT PROCEDURES documented in this encounter Visit Diagnoses Diagnosis Pneumonia Fungal Chronic Obstructive Pulmonary Disease Wi thout Exacerbation (HCC) Lung Interstitial Disease (HCC) documented in this encounter Additional Health Concerns Assessment Noted Time PHQ-9 Depression Total Score: 4 11/28/2020 10:17 AM CD T documented as of this encounter Care Teams Stock Controller Relationship Specialty Start Date End Date Elsewhere, Pcp PCP - General Family Medicine 07/29/17 [facility] - Laboratory Medicine 04/12/20 [place] [phone] documented as of this encounter
--- OUTSIDE RECORDS SUMMARY | 2022-04-13 11:53 | XMS_ITS | Encounter Summary ---
:1955 Author Organization [facility] Address [address] [place] [address] Care Team Providers Name Role Phone Elsewhere, Pcp Primary Care Provider Unavailable Reason for Referral MRI/CAT/PET Scan (Routine) - Closed Specialty Diagnoses / Procedures Referred By Contact Refer red To Contact Radiology Diagnoses Pneumonia Fungal Chronic Obstructive Pulmonary Disease Without Exacerbation (HCC) Lung Interstitial Disease (HCC) Trung Plasencia P.A.-C., [facility] Procedures CT Chest without IV Contrast M.S. 200 [place] [address] Referral ID Status Reason Start Date Expiration Date Visits Requ ested Visits Authorized [id number] Closed 03/13/2022 03/13/2023 1 1 Encounter Details Date Type Department Care Team Description 03/13/2022 Orders Only Trung Swenson Pneumo lili Fungal (Primary Dx); [facility] Trans[facility] Edmundo Stern, C hronic Obstructive Pulmonary Disease Without Exacerbation (HCC); and Clinical Regeneration M.S. 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 How often do you attend amish or More than 4 times per year 12/15/2021 jehovah's witness services? Do you belong to any clubs or No 12/15/2021 organizations such as amish groups, unions, fraternal or athletic groups, or [...] completed or the highest technical, or vocational bennett henderson degree you have received? Sex Assigned at Date Recorded Male 05/16/2020 4:27 PM MERCHANT MILLER documented as of this encounter Plan of Treatment Upcoming Encounters Date Type Specialty Care Team Description 04/24/2022 Appointment Laboratory Medicine Angélica Granger, PDemetriusADemetrius-C. [address] [place] [phone] 04/25/2022 Office Visit Otorhinolaryngology Dex Matta APRN, C.N.P., M.S.N. [address] [place] [phone] 05/08/2022 Appointment Laboratory Medicine Angélica Granger P.A.-C. [address] [place] [address] [phone] 05/08/2022 Clinical Admitting/Central Communication Scheduling 05/10/2022 Appointment Radiology Jeremie Rose M.D. [address] [place] [phone] 05/10/2022 Comprehensive Visit Orthopedic Surgery Warner Graves M.D. [address] [place] [address] [phone] 05/22/2022 Appointment Laboratory Medicine Angélica Granger P.A.-C. [address] [place] [phone] 06/05/2022 Appointment Laboratory Medicine Angélica Granger P.A.-C. [address] [place] [phone] 06/19/2022 Appointment Laboratory Medicine Angélica Granger P.A.-C. [address] [place] [phone] 07/03/2022 Appointment Laboratory Medicine Angélica Granger P.A.-C. [address] [place] [phone] 07/17/2022 Appointment Laboratory Medicine Angélica Granger P.A.-C. [address] [place] [phone] 07/31/2022 Appointment Laboratory Medicine Angélica Granger P.A.-C. [address] [place] [phone] 08/14/2022 Appointment Laboratory Medicine Angélica Granger P.A.-C. [address] [place] [phone] 08/28/2022 Appointment Laboratory Medicine Angélica Granger P.A.-C. [address] [place] [phone] documented as of this encounter Results CT Chest without IV [...] by the treating provider and reviewed by [facility] radiologist to increase sensitivity for detection of [...] by the treating provider and reviewed by [facility] radiologist to increase sensitivity for detection of pulmonary nodules. IMPRESSION: 1. Overall no significant change in the diffuse infectious/inflammatory bronchitis and bronchiolitis. 2. Additional findings are detailed in t he body of the report. Trung Plasencia P.A.-C., M.S. IMG CT PROCEDURES documented in this encounter Visit Diagnoses Diagnosis Pneumonia Fungal - Primary Chronic Obstructive Pulmonary Disease Wi thout Exacerbation (HCC) Lung Interstitial Disease (HCC) Pneumonia Fungal Chronic Obstructive Pulmonary Disease Wi thout Exacerbation (HCC) Lung Interstitial Disease (HCC) documented in this encounter Additional Health Concerns Assessment Noted Time PHQ-9 Depression Total Score: 4 11/28/2020 10:17 AM CD T documented as of this encounter Care Teams Corn Cutter Relationship Specialty Start Date End Date Elsewhere, Pcp PCP - General Family Medicine 07/29/17 [facility] - Laboratory Medicine 04/12/20 [place] [phone] documented as of this encounter
--- OUTSIDE RECORDS SUMMARY | 2022-04-13 11:53 | XMS_ITS | Encounter Summary ---
:1955 Author Organization [facility] Address [address] [place] [address] Care Team Providers Name Role Phone Elsewhere, Pcp Primary Care Provider Unavailable Reason for Visit Reason Comments Med Refill Encounter Details Date Type Department Care Team Description 03/15/2022 Refill Curt Anju [facility] for Bird, Edmond Azevedo, RDemetriusNDemetrius, Med Refill Transplantation and Clinical C.C .T.C. Regeneration in [place], ( Work) [place] [address] [place] [address] Social History Tobacco Use Types Packs/Day [...] or relatives? How often do you attend lutheran or More than 4 times per year 12/15/2021 religion services? 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 [address] [place] [address] [phone] 04/25/2022 Office Visit Otorhinolaryngology Dex Matta, RAMONA, C.N.P., M.S.N. [address] [place] [address] [phone] 05/08/2022 Appointment Laboratory Medicine Angélica Granger P.A.-CDemetrius [address] [place] [address] [phone] 05/08/2022 Clinical Admitting/Central Communication Scheduling 05/10/2022 Appointment Radiology Jeremie Rose M.D. [address] [place] [phone] 05/10/2022 Comprehensive Visit Orthopedic Surgery Warner Graves M.D. [address] [place] [phone] 05/22/2022 Appointment Laboratory Medicine Angélica Granger P.A.-CDemetrius [address] [place] [phone] 06/05/2022 Appointment Laboratory Medicine Angélica Granger P.A.-C. [address] [place] [phone] 06/19/2022 Appointment Laboratory Medicine Angélica Granger P.A.-C. [address] [place] [phone] 07/03/2022 Appointment Laboratory Medicine Angélica Granger P.A.-C. [address] [place] [phone] 07/17/2022 Appointment Laboratory Medicine Angélica Granger P.A.-C. [address] [place] [phone] 07/31/2022 Appointment Laboratory Medicine Angélica Granger P.A.-C. [address] [place] [phone] 08/14/2022 Appointment Laboratory Angélica Royal P.A.-C. [address] [place] [phone] 08/28/2022 Appointment Laboratory Medicine Angélica Granger P.A.-C. [address] [place] [address] [phone] documented as of this encounter Visit Diagnoses Diagnosis Transplant Liver (HCC) Medication Therapy Gang Drill Press Operator Not Anticoa gulant documented in this encounter Additional Health Concerns Assessment Noted Time PHQ-9 Depression Total Score: 4 11/28/2020 10:17 AM CD T documented as of this encounter Care Teams Customer Agent Relationship Specialty Start Date End Date Elsewhere, Pcp PCP - General Family Medicine 07/29/17 [facility] - Laboratory Medicine 04/12/20 [place] [phone] documented as of this encounter
--- OUTSIDE RECORDS SUMMARY | 2022-04-13 11:53 | XMS_ITS | Encounter Summary ---
:1955 Author Organization [facility] Address [address] [place] [address] Care Team Providers Name Role Phone Elsewhere, Pcp Primary Care Provider Unavailable Reason for Visit Reason Comments Med Refill budesonide Encounter Details Date Type Department Care Team Description 03/04/2022 Clinical Department of Jean, Med Refill Communication Otorhinolaryngology in [place] (bud esonide) [place], [place] [address] [facility] [address] [place] [phone] [place] [address] Social History Tobacco Use Types Packs/Day Years [...] or relatives? How often do you attend congregational or More than 4 times per year 12/15/2021 latter-day services? 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 He went to [facility] and it had been canceled he said by Nadeem Steiner. In looking in the chart, I see it was canceled by a Connie Aaron in Pulmonary for a reason on noncompliance. Last seen: 08/28/2021 Assessment: #1 Chronic Rhinosinusitis #2 Cough #3 [...] was agreeable to plan. Dex Matta APRN, C.N.Saeed, M.S.N. He would like this refilled stat to: [id number] [place] [address] (P) [phone] (F) [phone] documented in this encounter Plan of Treatment Upcoming Encounters Date Type Specialty Care Team Description 04/24/2022 Appointment Laboratory Medicine Angélica Granger P.A.-C. [address] [place] [phone] 04/25/2022 Office Visit Otorhinolaryngology Dex Matta APRN, C.NJuan Miguel, M.S.N. [address] [place] [phone] 05/08/2022 Appointment Laboratory Medicine Angélica Granger P.A.-Janette [address] [place] [address] [phone] 05/08/2022 Clinical Admitting/Central Communication Scheduling 05/10/2022 Appointment Radiology Jeremie Rose M.D. [address] [place] [phone] 05/10/2022 Comprehensive Visit Orthopedic Surgery Warner Graves M.D. [address] [place] [phone] 05/22/2022 Appointment Laboratory Medicine Angélica Granger P.A.-C. [address] [place] [phone] 06/05/2022 Appointment Laboratory Medicine Angélica Granger P.A.-C. [address] [place] [phone] 06/19/2022 Appointment Laboratory Medicine Angélica Granger P.A.-C. [address] [place] [phone] 07/03/2022 Appointment Laboratory Medicine Angélica Granger P.A.-C. [address] [place] [address] [phone] 07/17/2022 Appointment Laboratory Medicine Angélica Granger P.A.-C. [address] [place] [address] [phone] 07/31/2022 Appointment Laboratory Medicine Angélica Granger P.A.-C. [address] [place] [phone] 08/14/2022 Appointment Laboratory Medicine Angélica Granger P.A.-C. [address] [place] [address] [phone] 08/28/2022 Appointment Laboratory Medicine Angélica Granger P.A.-C. [address] [place] [phone] documented as of this encounter Visit Diagnoses Not on filedocumented in this encounter Additional Health Concerns Assessment Noted Time PHQ-9 Depression Total Score: 4 11/28/2020 10:17 AM CD T documented as of this encounter Care Teams Bottom Crane Operator Relationship Specialty Start Date End Date Elsewhere, Pcp PCP - General Family Medicine 07/29/17 [facility] - Laboratory Medicine 04/12/[address] [phone] documented as of this encounter
--- OUTSIDE RECORDS SUMMARY | 2022-04-13 11:54 | XMS_ITS | Encounter Summary ---
:1955 Author Organization [facility] Address [address] [place] [address] Care Team Providers Name Role Phone Elsewhere, Pcp Primary Care Provider Unavailable Reason for Visit Reason Comments Waitlist review meeting Encounter Details Date Type Department Care Team Description 01/31/2022 Clinical Curt Anju Bhardwaj, Wait list review Communication Center for Patricia Azevedo meeting Transplantation and R.N., C.C.T. C. Clinical Regeneration [address] [facility] in [facility] [phone] [place] [address] [place], [place] (Work) [address] [phone] Social History Tobacco Use Types Packs/Day Years [...] or relatives? How often do you attend denominational or More than 4 times per year 12/15/2021 quaker services? 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 - 02/01/2022 7:13 AM CDT Patient was presented for waitlist re-discussion on: 01/31/2022 Activation Date: 04/07/2018 TI Date: 12/05/2021 Last seen at [facility]: 12/05/2021 Reason for TI: temporarily too sick Patient's case was discussed today at the multidisciplinary waitlist meeting. Patient is currently inactive due to active infections. 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 Patient will remain inactive for 6 months and then we will reassess his status. Attendees: Zuleika Person Dr., R.N., C.C.T.CDemetrius Jensen R.N., C.C.TDemetriusCDemetrius Oliver R.N. Vanessa Scott R.N., C.C.TDemetriusCDemetrius Infante R.N., C.C.T.CDemetrius Fajardo R.N.,C.C.T.C. documented in this encounter Plan of Treatment Upcoming Encounters Date Type Specialty Care Team Description 04/24/2022 Appointment Laboratory Medicine Angélica Granger P.A.-C. [address] [place] [phone] 04/25/2022 Office Visit Otorhinolaryngology Dex Matta APRN, C.N.P., M.S.N. [address] [place] [phone] 05/08/2022 Appointment Laboratory Medicine Angélica Granger P.A.-C. [address] [place] [phone] 05/08/2022 Clinical Admitting/Central Communication Scheduling 05/10/2022 Appointment Radiology Jeremie Rose M.D. [address] [place] [phone] 05/10/2022 Comprehensive Visit Orthopedic Surgery Warner Graves M.D. [address] [place] [phone] 05/22/2022 Appointment Laboratory Medicine Angélica Granger P.A.-C. [address] [place] [phone] 06/05/2022 Appointment Laboratory Medicine Angélica Granger P.A.-C. [address] [place] [phone] 06/19/2022 Appointment Laboratory Medicine Angélica Granger P.A.-C. [address] [place] [phone] 07/03/2022 Appointment Laboratory Medicine Angélica Granger P.A.-C. [address] [place] [phone] 07/17/2022 Appointment Laboratory Medicine Angélica Granger P.A.-C. [address] [place] [phone] 07/31/2022 Appointment Laboratory Medicine Angélica Granger P.A.-C. [address] [place] [phone] 08/14/2022 Appointment Laboratory Medicine Angélica Granger P.A.-C. [address] [place] [phone] 08/28/2022 Appointment Laboratory Medicine Angélica Granger P.A.-C. [address] [place] [phone] documented as of this encounter Visit Diagnoses Not on filedocumented in this encounter Additional Health Concerns Assessment Noted Time PHQ-9 Depression Total Score: 4 11/28/2020 10:17 AM CD T documented as of this encounter Care Teams Water Treatment Plant Supervisor Relationship Specialty Start Date End Date Elsewhere, Pcp PCP - General Family Medicine 07/29/17 [facility] - Laboratory Medicine 04/12/[address] [address] documented as of this encounter
--- OUTSIDE RECORDS SUMMARY | 2022-04-13 11:54 | XMS_ITS | Encounter Summary ---
:1955 Author Organization [facility] Address [address] [place] [address] Care Team Providers Name Role Phone Elsewhere, Pcp Primary Care Provider Unavailable Reason for Visit Reason Comments Med Refill Encounter Details Date Type Department Care Team Description 02/15/2022 Refill Curt [facility] Yolie Dubois R.N. Med Refill Transplantation and Clinical 200 [facility] in [facility] [phone] [place] [address] [place] [phone] Social History Tobacco Use Types Packs/Day [...] at Date Recorded Male 05/16/2020 4:27 PM WHARF TENDER documented as 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 [address] [place] [phone] 04/25/2022 Office Visit Otorhinolaryngology Dex Matta APRN, C.N.P., M.S.N. [address] [place] [phone] 05/08/2022 Appointment Laboratory Medicine Angélica Granger, P.A.-C. [address] [place] [phone] 05/08/2022 Clinical Admitting/Central Communication Scheduling 05/10/2022 Appointment Radiology Jeremie Rose M.D. [address] [place] [phone] 05/10/2022 Comprehensive Visit Orthopedic Surgery Warner Graves M.D. [address] [place] [phone] 05/22/2022 Appointment Laboratory Medicine Angélica Granger P.A.-C. [address] [place] [phone] 06/05/2022 Appointment Laboratory Medicine Angélica Granger P.A.-C. [address] [place] [phone] 06/19/2022 Appointment Laboratory Medicine Angélica Granger P.A.-C. [address] [place] [phone] 07/03/2022 Appointment Laboratory Medicine Angélica Granger P.A.-C. [address] [place] [phone] 07/17/2022 Appointment Laboratory Medicine Angélica Granger P.A.-C. [address] [place] [phone] 07/31/2022 Appointment Laboratory Medicine Angélica Granger P.A.-C. [address] [place] [phone] 08/14/2022 Appointment Laboratory Medicine Angélica Granger P.A.-C. [address] [place] [phone] 08/28/2022 Appointment Laboratory Medicine Angélica Granger P.A.-C. [address] [place] [phone] documented as of this encounter Visit Diagnoses Diagnosis Transplant Liver (HCC) Infection Cytomegalovirus (HCC) Medication Therapy Poultry Farm Supervisor Not Anticoa gulant documented in this encounter Additional Health Concerns Assessment Noted Time PHQ-9 Depression Total Score: 4 11/28/2020 10:17 AM CD T documented as of this encounter Care Teams Manager Of Procurement Relationship Specialty Start Date End Date Elsewhere, Pcp PCP - General Family Medicine 07/29/17 [facility] - Laboratory Medicine 04/12/20 [place] [phone] documented as of this encounter
--- OUTSIDE RECORDS SUMMARY | 2022-04-13 11:54 | XMS_ITS | Encounter Summary ---
:1955 Author Organization [facility] Address [address] [place] [address] Care Team Providers Name Role Phone Elsewhere, Pcp Primary Care Provider Unavailable Encounter Details Date Type Department Care Team Description 01/31/2022 Orders Only Division of Nephrology and Elissa Wilcox A PRN, Hypertension, Anglican C.N.P. [place], in [place], [address] [place] [address] [place] [phone] [place] [address] [phone] Social History Tobacco Use Types Packs/Day Years [...] or relatives? How often do you attend restorationist or More than 4 times per year 12/15/2021 orthodox services? Do you belong to any clubs or No 12/15/2021 organizations such as restorationist groups, unions, fraternal or athletic groups, or [...] highest level of school Associate degree: jennifer ozzydanii, 12/14/2021 you have completed or the highest technical, or vocational p beatriz degree you have received? 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 [address] [place] [phone] 04/25/2022 Office Visit Otorhinolaryngology Dex Matta, RAMONA, C.N.P., M.S.N. [address] [place] [phone] 05/08/2022 Appointment Laboratory Medicine Angélica Granger, P.A.-C. [address] [place] [phone] 05/08/2022 Clinical Admitting/Central Communication Scheduling 05/10/2022 Appointment Radiology Jeremie Rose M.D. [address] [place] [phone] 05/10/2022 Comprehensive Visit Orthopedic Surgery Warner Garves M.D. [address] [place] [phone] 05/22/2022 Appointment Laboratory Medicine Angélica Granger P.A.-C. [address] [place] [phone] 06/05/2022 Appointment Laboratory Medicine Angélica Granger P.A.-C. [address] [place] [phone] 06/19/2022 Appointment Laboratory Medicine Angélica Granger P.A.-C. [address] [place] [phone] 07/03/2022 Appointment Laboratory Medicine Angélica Granger P.A.-C. [address] [place] [phone] 07/17/2022 Appointment Laboratory Angélica Royal P.A.-C. [address] [place] [phone] 07/31/2022 Appointment Laboratory Medicine Angélica Granger P.A.-C. [address] [place] [phone] 08/14/2022 Appointment Laboratory Medicine Angélica Granger P.A.-C. [address] [place] [phone] 08/28/2022 Appointment Laboratory Medicine Angélica Granger P.A.-C. [address] [place] [phone] documented as of this encounter Visit Diagnoses Not on filedocumented in this encounter Additional Health Concerns Infection Onset Date Last Indicated Resolved Time COVID19 Pending 02/04/2022 02/04/2022 02/05/2022 2:30 PM CDT Assessment Noted Time PHQ-9 Depression Total Score: 4 11/28/2020 10:17 AM CD T documented as of this encounter Care Teams Artificial Breast Fabricator Relationship Specialty Start Date End Date Elsewhere, Pcp PCP - General Family Medicine 07/29/17 [facility] - Laboratory Medicine 04/12/20 [place] [phone] documented as of this encounter
--- OUTSIDE RECORDS SUMMARY | 2022-04-13 11:54 | XMS_ITS | Encounter Summary ---
:1955 Author Organization [facility] Address [address] [place] [address] Care Team Providers Name Role Phone Elsewhere, Pcp Primary Care Provider Unavailable Encounter Details Date Type Department Care Team Description 02/04/2022 Lab Department of General Connie [facility] 200 [facility] [address] [place] [phone] (Wo rk) Social History Tobacco Use Types [...] or relatives? How often do you attend advent or More than 4 times per year 12/15/2021 presybeterian services? 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 [address] [place] [address] [phone] 04/25/2022 Office Visit Otorhinolaryngology Dex Matta, RAMONA, C.N.P., M.S.N. [address] [place] [address] [phone] 05/08/2022 Appointment Laboratory Medicine Angélica Granger, P.A.-C. [address] [place] [address] [phone] 05/08/2022 Clinical Admitting/Central Communication Scheduling 05/10/2022 Appointment Radiology Jeremie Rose M.D. [address] [place] [phone] 05/10/2022 Comprehensive Visit Orthopedic Surgery Warner Graves M.D. [address] [place] [phone] 05/22/2022 Appointment Laboratory Medicine Angélica Granger P.A.-C. [address] [place] [phone] 06/05/2022 Appointment Laboratory Medicine Angélica Granger P.A.-C. [address] [place] [phone] 06/19/2022 Appointment Laboratory Medicine Angélica Granger P.A.-C. [address] [place] [phone] 07/03/2022 Appointment Laboratory Medicine Angélica Granger P.A.-C. [address] [place] [phone] 07/17/2022 Appointment Laboratory Medicine Angélica Granger P.A.-C. [address] [place] [phone] 07/31/2022 Appointment Laboratory Medicine Angélica Granger P.A.-C. [address] [place] [phone] 08/14/2022 Appointment Laboratory Medicine Angélica Granger P.A.-C. [address] [place] [phone] 08/28/2022 Appointment Laboratory Medicine Angélica Granger P.A.-C. [address] [place] [phone] documented as of this encounter Procedures Procedure Name Priority Date/Time Associated Diagnosis Comme nts SARS CORONAVIRUS-2 Routine 02/04/2022 4:38 PM Preprocedural La b Exam Results for this RNA, V CDT procedure are i n the results section. documented in this encounter Results SARS Coronavirus-2 RNA, V Asymptomatic (02/04/2022 4:38 PM CDT) [facility] Method Time Signature SARS-CoV-2 Swab, 02/05/2022 [...] pe rformed using the Aptima SARS-CoV-2 assay ([employer] on the Ge.tts tem under emergency use authorization (EUA) by the U.S. Food and Drug Administ ration. Fact sheets for this EUA assay can be fo und at the following links: For Healthcare Providers: https://www.[employer] a.gov/media/769045/download For Patients: https://www.fda.gov/media/ 774577/download Specimen Anatomical Collection Method Collection Time Receive d Time (Source) Location / / Volume Laterality Varies 02/04/2022 4:38 PM 4:55 (Nasopharynx) CDT AM CDT Connie Barron LAB MICROBIOLOGY - GENERAL ORDERABLES Performing Organization Address City/State/ZIP Code Phon e Number [facility]- [address] [place] [phone] [place] [address] [place] [address] System [address] documented in this encounter Visit Diagnoses Diagnosis Preprocedural Lab Exam documented in this encounter Additional Health Concerns Infection Onset Date Last Indicated Resolved Time COVID19 Pending 02/04/2022 02/04/2022 02/05/2022 2:30 PM CDT Assessment Noted Time PHQ-9 Depression Total Score: 4 11/28/2020 10:17 AM CD T documented as of this encounter Care Teams Ultrasound Supervisor Relationship Specialty Start Date End Date Elsewhere, Pcp PCP - General Family Medicine 07/29/17 [facility] - Laboratory Medicine 04/12/20 [place] [address] documented as of this encounter
--- OUTSIDE RECORDS SUMMARY | 2022-04-13 11:54 | XMS_ITS | Encounter Summary ---
:1955 Author Organization [facility] Address [address] [place] [address] Care Team Providers Name Role Phone Elsewhere, Pcp Primary Care Provider Unavailable Reason for Visit Reason Comments Tacrolimus Adjustment Protocol Liver Encounter Details Date Type Department Care Team Description 02/01/2022 Clinical Anastasia [facility], R.N., Adjustment Transplantation and C.C.T.C. Protocol Liver Clinical Regeneration [phone] in [facility]) [place] [address] [place] [address] Social History Tobacco Use Types Packs/Day Years [...] or relatives? How often do you attend restoration or More than 4 times per year 12/15/2021 roman catholic services? Do you belong to any clubs or No 12/15/2021 organizations such as restoration groups, unions, fraternal or athletic groups, or [...] place to sleep or slept in a fpc (including now)? Education Answer Date Recorded What is the highest level of school Associate degree: jennifer preciadodanii, 12/14/2021 you have completed or the highest technical, or vocational p beatriz degree you have received? 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 Bruce was [...] phos has been elevated the last few weeks. Sodium is low this set of labs. Recommendations? Current Medications & Recent Dose Changes: Tacrolimus 0.5 mg daily (decreased from 0.5 mg bid 12/27/21) Mycophenolate 500 mg BID (Decreased to 250 mg BID 10/11) Prednisone 5 mg daily Labs: Recent Labs 01/30/22 0804 01/23/22 0801/16/22 0809 01/09/22 0807 01/02/22 0802 12/26/21 08 TACROLIMUS 2.7 L 1.4 L 2.2 L 3.0 L 3.1 L 6.0 Recent Labs 01/30/22 0804 01/23/22 0811 01/16/22 0809 12/19/21 0835 12/03/21 0756 12/03/21 0755 HGB 11.2 L 12.0 L 11.9 L < > -- 9.8 L HCT 34.2 L 37.0 L 38.3 < > -- 31.1 L WBC 5.9 4.3 5.3 < > -- 3.9 NEUTROPHILS -- -- -- -- -- See manual differential PLT 289 249 231 < > -- 292 NA 130 L 135 136 < > -- 138 KPLASMA 3.7 3.8 4.0 < > -- 3.9 MG -- -- -- -- -- 2.3 GLUCOSE CANCELED 113 H CANCELED 99 CANCELED 120 H < > -- 110 HGBA1C -- -- -- -- 5.6 -- BUN 34 H 33 H 35 H < > -- 45 H CREATININE 4.53 H 3.47 H 3.39 H < > -- 4.03 H ALKPHOS 154 H 171 H 178 H < > -- 107 AST 33 26 25 < > -- 21 ALT 25 23 32 < > -- 17 BILITOT 0.3 0.3 0.3 < > -- 0.3 BILIDIR -- -- -- -- -- <0.2 PT -- -- -- -- 11.1 -- INR -- -- -- -- 1.0 -- ALBUMIN 3.7 4.2 4.1 < > -- 4.2 < > = values in this interval not displayed. Serologies: Recent Labs 01/30/22 0801/23/22 0801/16/22 0809 01/09/22 0807 CMVQUANT Undetected <35 A <35 A 91 A No results for input(s): EBVDNADETQUP, EBVDNADETQUA, EBVQU, EBVCOPIES, EBVPCRQUANT in the last 2190 hours. No lab exists for component: SEBV Recent Labs 12/05/21 0722 HEPBANTSCRN Negative HEPBSABSCRN Positive HEPBCABSCRN Negative Immunosuppression Goal Range: 1.5-4 Current Lab Frequency: weekly Please advise on any changes or recommendations. Anastasia Rasheed R.N., C.C.TDemetriusC. *All labs are now found in [facility] - Lab - Flowsheets. For further review of labs, please review there or under Synopsis* documented in this encounter Plan of Treatment Upcoming Encounters Date Type Specialty Care Team Description 04/24/2022 Appointment Laboratory Medicine Angélica Granger P.A.-C. [address] [place] [phone] 04/25/2022 Office Visit Otorhinolaryngology Dex Matta, RAMONA, C.N.P., M.S.N. [address] [place] [phone] 05/08/2022 Appointment Laboratory Medicine Angélica Granger P.A.-C. [address] [place] [phone] 05/08/2022 Clinical Admitting/Central Communication Scheduling 05/10/2022 Appointment Radiology Jeremie Rose M.D. [address] [place] [phone] 05/10/2022 Comprehensive Visit Orthopedic Surgery Warner Graves M.D. [address] [place] [phone] 05/22/2022 Appointment Laboratory Medicine Angélica Granger P.A.-C. [address] [place] [phone] 06/05/2022 Appointment Laboratory Medicine Angélica Granger P.A.-C. [address] [place] [phone] 06/19/2022 Appointment Laboratory Medicine Angélica Granger P.A.-C. [address] [place] [phone] 07/03/2022 Appointment Laboratory Medicine Angélica Granger P.A.-C. [address] [place] [phone] 07/17/2022 Appointment Laboratory Medicine Angélica Granger P.A.-C. [address] [place] [phone] 07/31/2022 Appointment Laboratory Medicine Angélica Granger P.A.-C. [address] [place] [phone] 08/14/2022 Appointment Laboratory Angélica Royal P.A.-C. [address] [place] [phone] 08/28/2022 Appointment Laboratory Angélica Royal P.A.-C. [address] [place] [phone] documented as of this encounter Visit Diagnoses Not on filedocumented in this encounter Additional Health Concerns Assessment Noted Time PHQ-9 Depression Total Score: 4 11/28/2020 10:17 AM CD T documented as of this encounter Care Teams Administrative Office Specialist Relationship Specialty Start Date End Date Elsewhere, Pcp PCP - General Family Medicine 07/29/17 [facility] - Laboratory Medicine 04/12/20 [place] [id number] documented as of this encounter
--- OUTSIDE RECORDS SUMMARY | 2022-04-13 11:54 | XMS_ITS | Encounter Summary ---
:1955 Author Organization [facility] Address [address] [place] [address] Care Team Providers Name Role Phone Elsewhere, Pcp Primary Care Provider Unavailable Reason for Visit Outpatient (Routine) - Closed Specialty Diagnoses / Procedures Referred By Contact Refer red To Contact Pulmonary Medicine Diagnoses Transplant Liver (HCC) Medication Therapy Retirement Not Anticoagulant Screening Examination Skin Cancer Dialysis Dependent (HCC) Screening Examination Prostate Cancer Nodules Pulmonary Multiple Yusuf Umanzor [facility] Sada, M.P.H. [address] [place] [address] Referral ID Status Reason Start Date Expiration Date Visits Requ ested Visits Authorized [id number] Closed 12/26/2021 12/26/2022 1 1 Encounter Details Date Type Department Care Team Description 02/07/2022 Office Visit Division of Pulmonary Connie Aaron Tr ansplant Liver (HCC); Medicine in E, M.B.B.S. Medication Therapy Retirement Not Anticoa gulant; [place], [place] [address] [facility] Screening Examination Skin Cancer; [address] [place], [place] Dialysis Dependent (HCC); [place] [address] Screening Examination Prostate Cancer; [id number] Nodules Pulmonary Multiple Social History Tobacco Use Types Packs/Day Years [...] or relatives? How often do you attend scientologist or More than 4 times per year 12/15/2021 evangelical services? 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 male who presents for evaluation of chronic cough , shortness of breath and persistent infiltrate HISTORY OF PRESENT ILLNESS Mr. 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 He is well known to the pulmonary clinic evaluated by my colleague Dr. Simon. I had the pleasure of meeting Mr. Singh for the rst time 08/28/20 for further evaluation of chronic cough and last saw him in November 2020. Since our last interaction, he has been seen in the pulmonary clinic by Dr. Simon. Therapy has included prednisone courses and was recently started on antifungal for positive Aspergillus antigen on BAL serum negative) Note that other micro work up including Bronchoscopy and several sputum cultures for persistent treein bud opacities, fleeting consolidation on CT chest scan have revealed Serratia and few penicilliumsp. Trial of inhalers, bronchial hygiene, short prednisone taper, antibiotics. PPI have not really helped in the past Swallow study, Esophageal PH monitoring and manometry have been negative. Cough and shortness of breath worsened on a recent trip to [place] with increased bilateral swelling. Has had several dialysis sessions since then with improvement in leg swelling but continues with cough and shortness of breath. Stopped using Symbicort a while ago. [place] better with steroids backin September. Continues with Nasal rinses, budesonide and ipratropium CT 01/21/22: Micro-nodularity in the right upper lobe and middle lobe slightly improved. Diffuse pulmonary micro-nodularity throughout the lower lobes and lingula are again noted with some areas whichare stable others which are mildly improved. Findings are most consistent with an infectious/inflammatory process. PFT 02/07/22: With significant worsening obstruction OBJECTIVE General: Not in any obvious distress Chest: Bilateral expiratory wheeze Abd: Soft not tender Heart: Normal rate EXT: Trace edema ASSESSMENT / PLAN #1 Cough #2 Chronic rhinosinusitis #3 Postnasal drip #4 Obstructive lung disease, worsening #6 Positive Aspergillus antigen on BAL on treatment #7 Bilateral pulmonary nodularities and opacities #8 Recent COVID-19 infection October 2020 s/p monoclonal antibodies #9 Autoimmune hepatitis status post orthotopic liver transplant in 1998 and 2012 #10 Chronic immunosuppression with prednisone, tacrolimus and CellCept It was a pleasure meeting with Mr. Singh this afternoon. We had the opportunity to discuss resultsof the CT scan and PFT which shows worsening obstruction. Have encouraged re-initiation of inhalers, will trial Trelegy to increase bronchodilator he and encourage compliance. Will give a short course of prednisone taper at this time due to significant expiratory wheeze on examination. Will continue Bactrim for PCP prophylaxis at this time Continue nasal rinses Discuss possibility of bronchiolitis obliterans with Dr. Simon , although very rare post liver transplant, worsening obstruction on PFT and persistent infiltrate concerning I personally spent over half of a total 40 minutes in counseling and discussion with the patient andcoordination of care as described above. documented in this encounter Plan of Treatment Upcoming Encounters Date Type Specialty Care Team Description 04/24/2022 Appointment Laboratory Medicine Angélica Granger P.A.-CDemetrius [address] [place] [phone] 04/25/2022 Office Visit Otorhinolaryngology Dex Matta APRN, C.N.P., M.S.N. [address] [place] [phone] 05/08/2022 Appointment Laboratory Medicine Angélica Granger P.A.-CDemetrius [address] [place] [phone] 05/08/2022 Clinical Admitting/Central Communication Scheduling 05/10/2022 Appointment Radiology Jeremie Rose M.D. [address] [place] [phone] 05/10/2022 Comprehensive Visit Orthopedic Surgery Warner Graves M.D. [address] [place] [phone] 05/22/2022 Appointment Laboratory Medicine Angélica Granger P.A.-C. [address] [place] [phone] 06/05/2022 Appointment Laboratory Medicine Angélica Granger P.A.-C. [address] [place] [phone] 06/19/2022 Appointment Laboratory Medicine Angélica Granger P.A.-C. [address] [place] [phone] 07/03/2022 Appointment Laboratory Medicine Angélica Granger P.A.-C. [address] [place] [phone] 07/17/2022 Appointment Laboratory Medicine Angélica Granger P.A.-C. [address] [place] [phone] 07/31/2022 Appointment Laboratory Medicine Angélica Granger P.A.-C. [address] [place] [phone] 08/14/2022 Appointment Laboratory Medicine Angélica Granger P.A.-C. [address] [place] [phone] 08/28/2022 Appointment Laboratory Medicine Angélica Granger P.A.-C. [address] [place] [phone] documented as of this encounter Visit Diagnoses Diagnosis Transplant Liver (HCC) Medication Therapy Retirement Not Anticoa gulant Screening Examination Skin Cancer Dialysis Dependent (HCC) Screening Examination Prostate Cancer Nodules Pulmonary Multiple documented in this encounter Additional Health Concerns Assessment Noted Time PHQ-9 Depression Total Score: 4 11/28/2020 10:17 AM CD T documented as of this encounter Care Teams Welder Pipe Making Relationship Specialty Start Date End Date Elsewhere, Pcp PCP - General Family Medicine 07/29/17 [facility] - Laboratory Medicine 04/12/[address] [phone] documented as of this encounter
--- OUTSIDE RECORDS SUMMARY | 2022-04-13 11:54 | XMS_ITS | Encounter Summary ---
:1955 Author Organization [facility] Address [address] [place] [address] Care Team Providers Name Role Phone Elsewhere, Pcp Primary Care Provider Unavailable Encounter Details Date Type Department Care Team Description 02/06/2022 Hospital Encounter Department of Angélica Granger ant Liver (HCC); Laboratory Medicine Leena PDemetriusADurgaC. Medication Therapy Senior Care Not Anticoa gulant in [address] [address] [place], [place] [phone] (Work) [phone] Social History Tobacco Use Types Packs/Day Years [...] or relatives? How often do you attend judaism or More than 4 times per year 12/15/2021 evangelical services? 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 NIFEdipine XL (PROCARDIA Take 20 mg by [...] mouth at bedtime as needed for sleep. valGANciclovir (VALCYTE) Take 1 tablet (450 45 tablet 0 12/202103/27/2022 450 mg mg total) by mouth tabletIndications: every other day. Transplant Liver (HCC), take every 48 hours Medication Therapy Long after dialysis Term Not Anticoagulant, Infection Cytomegalovirus ([facility]) budesonide (PULMICORT) ADD 1 RESPULE TO 8 360 mL 11 07/3002/07/2022 0.5 mg/2 mL nebulizer OZ SALINE AND solution IRRIGATE EACH SIDE OF NOSE TWICE DAILY DIRECTED lidocaine-prilocaine Apply 1 application 30 g 11 202102/07/2022 ([facility]LA) 2.5-2.5 % cream topically See Admin Instructions. 2 hours prior to dialysis. mycophenolate (CELLCEPT) Take 2 capsules 360 capsule 3 10/1902/15/2022 250 mg (500 mg total) by capsuleIndications: mouth 2 (two) times Transplant Liver ([facility]), a day. Do not Infection break, cut, or open Cytomegalovirus ([facility]), capsules. Medication Therapy Gasket Maker Not Anticoagulant tacrolimus (PROGRAF) 0.5 Take 1 capsule (0.5 90 capsule 3 03/15/2022 mg capsuleIndications: mg total) by mouth Transplant Liver ([facility]), daily. Medication Therapy Senior Care Not Anticoagulant documented as 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 [address] [place] [phone] 04/25/2022 Office Visit Otorhinolaryngology Dex Matta APRN, C.N.P., M.S.N. [address] [place] [address] [phone] 05/08/2022 Appointment Laboratory Medicine Angélica Granger P.A.-C. [address] [place] [phone] 05/08/2022 Clinical Admitting/Central Communication Scheduling 05/10/2022 Appointment Radiology Jeremie Rose M.D. [address] [place] [phone] 05/10/2022 Comprehensive Visit Orthopedic Surgery Warner Graves M.D. [address] [place] [phone] 05/22/2022 Appointment Laboratory Medicine Angélica Granger P.A.-C. [address] [place] [phone] 06/05/2022 Appointment Laboratory Medicine Angélica Granger P.A.-C. [address] [place] [phone] 06/19/2022 Appointment Laboratory Medicine Angélica Granger P.A.-C. [address] [place] [phone] 07/03/2022 Appointment Laboratory Medicine Angélica Granger P.A.-C. [address] [place] [phone] 07/17/2022 Appointment Laboratory Medicine Angélica Granger P.A.-C. [address] [place] [phone] 07/31/2022 Appointment Laboratory Medicine Angélica Granger P.A.-C. [address] [place] [phone] 08/14/2022 Appointment Laboratory Medicine Angélica Granger P.A.-C. [address] [place] [phone] 08/28/2022 Appointment Laboratory Medicine Angélica Granger P.A.-C. [address] [place] [phone] documented as of this encounter Procedures Procedure Name Priority Date/Time Associated Diagnosis Comme nts CMV DNA DETECT/QUANT, Routine 02/06/2022 8:06 Transplant Liver Results for this P AM CDT (HCC) procedure are in Medication Therapy the resul ts Senior Care Not section. Anticoagulant TACROLIMUS LEVEL, B Routine 02/06/2022 8:06 Transplant Liver R esults for this AM CDT (HCC) procedure are in Medication Therapy the resul ts Senior Care Not section. Anticoagulant CBC WITHOUT Routine 02/06/2022 8:06 Transplant Liver Results for this DIFFERENTIAL, B AM CDT (HCC) procedure are in Medication Therapy the resul ts Gasket Maker Not section. Anticoagulant GLUCOSE, FASTING, S/P Routine 02/06/2022 8:06 Transplant Liver Results for this AM CDT (HCC) procedure are in Medication Therapy the resul ts Senior Care Not section. Anticoagulant COMPREHENSIVE Routine 02/06/2022 8:06 Transplant Liver Results for this METABOLIC PANEL, S/P AM CDT (HCC) procedure are in Medication Therapy the resul ts Gasket Maker Not section. Anticoagulant documented in this encounter Results (ABNORMAL) Tacrolimus, B (02/06/2022 8:06 AM CDT) athologist Signature Tacrolimus, B 1.5 (L) 5.0-15.0 02/07/2022 SDSC (Trough) 10:49 AM CDT ng/mL Comment: ----ADDITIONAL INFORMATION---- Target [...] its performa nce characteristics determined by [facility] in a manner consistent with CLIA requirements. This test has not been cleared or approved by the U.S. Mer d and Drug Administration. Specimen Anatomical Collection Method Collection Time Receive d Time (Source) Location / / Volume Laterality Blood (Blood, 02/06/2022 8:06 AM 02/08/20 7:29 Venous) CDT AM CDT Angélica Granger P.A.-C. LAB BLOOD NON ADD-ON Performing Organization Address City/[facility] Phon e Number [facility] [address] [place] [address] SUPPORT [facility] [place] [address] Laboratory Medicine and Pathology [address] [place] [address] Dr. MRUILLO (ABNORMAL) CMV DNA Detect / Quant, Plasma (02/06/2022 8:06 AM CDT) [facility] Method Time Signature CMV DNA <35 (A) Undetected 02/07/2022 [facility] Detect/Quant, IU/mL 4:06 PM CDT P Comment: Result in log [...] u sing the tika CMV test ([employer] with the tika 6800 System. Specimen Anatomical Collection Method Collection Time Receive d Time (Source) Location / / Volume Laterality Blood (Blood, 02/06/2022 8:06 AM 02/08/20 22 7:50 Venous) CDT AM CDT Angélica Granger P.A.-C. LAB MICROBIOLOGY - BLOOD ORD ERABLES Performing Organization Address City/[facility]/ZIP [facility] Phon e Number [address] [place] [address] [address] [facility] [facility] [place] [address] Laboratory Medicine and Pathology [address] [place] (ABNORMAL) Glucose, Fasting (02/06/2022 8:06 AM CDT) athologist Signature Glucose, P 127 (H) 70 - 100 02/06/2022 [facility] mg/dL 8:42 AM CDT Last Intake 13 hr 02/06/2022 [facility] 8:07 AM CDT Specimen Anatomical Collection Method Collection Time Receive d Time (Source) Location / / Volume Laterality Blood (Blood, 02/06/2022 8:06 AM 02/07/20 8:07 Venous) CDT AM CDT Angélica Granger P.A.-C. LAB BLOOD NON ADD-ON Performing Organization Address City/State/ZIP Code Phon e Number [address] [address] [place] [address] (ABNORMAL) Comprehensive Metabolic Panel (02/06/2022 8:06 AM CDT) Analysis Performed At Patho logist Time Signature Potassium, P 3.9 3.6 - 5.2 02/06/2022 [facility] mmol/L 8:45 AM CDT Sodium, P 132 (L) 135 - 145 02/06/2022 [facility] mmol/L 8:45 AM CDT Chloride, P 95 (L) 98 - 107 02/06/2022 [facility] mmol/L 8:45 AM CDT Bicarbonate, P 23 22 - 29 02/06/2022 [facility] mmol/L 8:45 AM CDT Anion Gap, P 14 7 - 15 02/06/2022 [facility] 8:45 AM CDT BUN (Blood Urea 29 (H) 8 - 24 02/06/2022 [facility] Nitrogen), P mg/dL 8:45 AM CDT Creatinine 3.47 (H) 0.74 - 02/06/2022 [facility] 1.35 mg/dL 8:45 AM CDT eGFR-Black/Afri 20 (L) >=60 02/06/2022 [facility] can [place] mL/min/BSA 8:45 AM CDT Comment: ----ADDITIONAL INFORMATION---- Estimated GFR calculated using the 2009 CKD_EPI creatinine equation. eGFR Non-Black/ 17 (L) >=60 mL/min/BSA 02/06/2022 8:45 AM CDT [facility] [place] Comment: ----ADDITIONAL INFORMATION---- Estimated GFR calculated using the 2009 CKD_EPI creatinine equation. Calcium, Total, P 9.1 8.8 - 10.2 mg/dL 02/06/2022 8:45 AM CDT [facility] Glucose, P CANCELED mg/dL 02/06/2022 8:07 AM CDT [facility] Comment: Duplicate test request. Result canceled by the ancillary. Protein, Total, P 6.9 6.3 - 7.9 g/dL 02/06/2022 8:45 A M CDT [facility] Albumin, P 4.1 3.5 - 5.0 g/dL 02/06/2022 8:45 AM CDT C NFL Aspartate Aminotransferase 28 8 - 48 U/L 02/06/2022 8 :45 AM CDT [facility] (AST), P Alkaline Phosphatase, P 177 (H) 40 - 129 U/L 02/06/2022 8: 45 AM CDT [facility] Alanine Aminotransferase 32 7 - 55 U/L 02/06/2022 8:4 5 AM CDT [facility] (ALT), P Bilirubin, Total, P 0.4 <=1.2 mg/dL 02/06/2022 8:45 AM CDT [facility] Specimen Anatomical Collection Method Collection Time Receive d Time (Source) Location / / Volume Laterality Blood (Blood, 02/06/2022 8:06 AM 02/07/20 8:07 Venous) CDT AM CDT Angélica Granger P.A.-C. LAB BLOOD ADD-ON Performing Organization Address City/State/ZIP Code Phon e Number [facility]- [address] [place] [phone] [place] [address] [place] [address] System [address] (ABNORMAL) CBC without Differential (02/06/2022 8:06 AM CDT) [facility] gist Method Time Signature Hemoglobin 11.7 (L) 13.2 - 02/06/2022 [facility] 16.6 g/dL 8:15 AM CDT Hematocrit 35.6 (L) 38.3 - 02/06/2022 [facility] 48.6 % 8:15 AM CDT Erythrocytes 3.57 (L) 4.35 - 02/06/2022 [facility] 5.65 8:15 AM CDT x10(12)/L MCV 99.7 (H) 78.2 - 02/06/2022 [facility] 97.9 fL 8:15 AM CDT RBC Distrib Width 11.7 (L) 11.8 - 02/06/2022 [facility] 14.5 % 8:15 AM CDT Platelet Count 344 (H) 135 - 317 02/06/2022 [facility] x10(9)/L 8:15 AM CDT Leukocytes 8.2 3.4 - 9.6 02/06/2022 [facility] x10(9)/L 8:15 AM CDT Specimen Anatomical Collection Method Collection Time Receive d Time (Source) Location / / Volume Laterality Blood (Blood, 02/06/2022 8:06 AM 02/07/20 22 8:07 Venous) CDT AM CDT Angélica Granger P.A.-C. LAB BLOOD ADD-ON Performing Organization Address [facility] Phon e Number [facility]- [address] [place] [address] [place] [address] System [address] documented in this encounter Visit Diagnoses Diagnosis Transplant Liver (HCC) Medication Therapy Gasket Maker Not Anticoa gulant documented in this encounter Additional Health Concerns Assessment Noted Time PHQ-9 Depression Total Score: 4 11/28/2020 10:17 AM CD T documented as of this encounter Care Teams Pipe Coverer Helper Relationship Specialty Start Date End Date Elsewhere, Pcp PCP - General Family Medicine 07/29/17 [facility] - Laboratory Medicine 04/12/20 [place] [phone] documented as of this encounter
--- OUTSIDE RECORDS SUMMARY | 2022-04-13 11:54 | XMS_ITS | Encounter Summary ---
:1955 Author Organization [facility] Address [address] [place] [address] Care Team Providers Name Role Phone Elsewhere, Pcp Primary Care Provider Unavailable Encounter Details Date Type Department Care Team Description 01/24/2022 Clinical Communication Irena Gamez [facility] for R, R.N. Transplantation and [address] [place] [address] Clinical [facility] in [place], [place] [phone] [place] [address] [place] [phone] (Work) [phone] Social History Tobacco Use Types Packs/Day Years [...] or relatives? How often do you attend hindu or More than 4 times per year 12/15/2021 mu-ism services? Do you belong to any clubs or No 12/15/2021 organizations such as hindu groups, unions, fraternal or athletic groups, or [...] place to sleep or slept in a nursing home (including now)? Education Answer Date Recorded What is the highest level of school Associate degree: jennifer reyes, 12/14/2021 you have completed or the highest technical, or vocational p beatriz degree you have received? 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 - 01/24/2022 1:51 PM CDT Provider who reviewed results: Dr Reyes Recommendations: No medication changes. Labs are due: 1 week Patient Online Services message was initiated by a [facility] Registered Nurse for report of test results and recommendations. Telephone Encounter - Yolie Dubois R.N. - 01/24/2022 11:49 AM CDT Please review labs below. Bruce [...] pulmonary aspergillosis and Bactrim for Chronic rhinosinusitis Alk phos has been elevated the last few weeks. Recommendations? Current Medications & Recent Dose Changes: Tacrolimus 0.5 mg daily (decreased from 0.5 mg bid 12/27/21) Mycophenolate 500 mg BID (Decreased to 250 mg BID 10/11) Prednisone 5 mg daily Labs: Recent Labs 01/23/22 0811 01/16/22 0809 01/09/22 0807 01/02/22 0802 12/26/21 0807 12/19/21 0835 TACROLIMUS 1.4 L 2.2 L 3.0 L 3.1 L 6.0 7.8 Recent Labs 01/23/22 0811 01/16/22 0809 01/09/22 0807 12/19/21 0835 12/03/21 0756 12/03/21 0755 HGB 12.0 L 11.9 L 11.3 L < > -- 9.8 L HCT 37.0 L 38.3 35.8 L < > -- 31.1 L WBC 4.3 5.3 4.3 < > -- 3.9 NEUTROPHILS -- -- -- -- -- See manual differential PLT 249 231 258 < > -- 292 NA 135 136 136 < > -- 138 KPLASMA 3.8 4.0 4.3 < > -- 3.9 MG -- -- -- -- -- 2.3 GLUCOSE CANCELED 99 CANCELED 120 H CANCELED 120 H < > -- 110 HGBA1C -- -- -- -- 5.6 -- BUN 33 H 35 H 30 H < > -- 45 H CREATININE 3.47 H 3.39 H 3.45 H < > -- 4.03 H ALKPHOS 171 H 178 H 151 H < > -- 107 AST 26 25 27 < > -- 21 ALT 23 32 27 < > -- 17 BILITOT 0.3 0.3 0.3 < > -- 0.3 BILIDIR -- -- -- -- -- <0.2 PT -- -- -- -- 11.1 -- INR -- -- -- -- 1.0 -- ALBUMIN 4.2 4.1 4.1 < > -- 4.2 < > = values in this interval not displayed. Serologies: Recent Labs 01/16/22 0809 01/09/22 0807 01/02/22 0802 12/26/21 0807 CMVQUANT <35 A 91 A 65 A 313 A No results for input(s): EBVDNADETQUP, EBVDNADETQUA, EBVQU, EBVCOPIES, EBVPCRQUANT in the last 2190 hours. No lab exists for component: SEBV Recent Labs 12/05/21 07 HEPBANTSCRN Negative HEPBSABSCRN Positive HEPBCABSCRN Negative Immunosuppression Goal Range: 1.5-4 Current Lab Frequency: weekly Please advise on any changes or recommendations. ThanksYolie R.N. *All labs are now found in [employer] - Lab - Flowsheets. For further review of labs, please review there or under Synopsis* documented in this encounter Plan of Treatment Upcoming Encounters Date Type Specialty Care Team Description 04/24/2022 Appointment Laboratory Medicine Angélica Granger P.A.-C. [address] [place] [address] [phone] 04/25/2022 Office Visit Otorhinolaryngology Dex Matta APRN, C.N.P., M.S.N. [address] [place] [phone] 05/08/2022 Appointment Laboratory Medicine Angélica Granger P.A.-C. [address] [place] [address] [phone] 05/08/2022 Clinical Admitting/Central Communication Scheduling 05/10/2022 Appointment Radiology Jeremie Rose M.D. [address] [place] [phone] 05/10/2022 Comprehensive Visit Orthopedic Surgery Warner Graves M.D. [address] [place] [address] [phone] 05/22/2022 Appointment Laboratory Medicine Angélica Granger P.A.-C. [address] [place] [phone] 06/05/2022 Appointment Laboratory Medicine Angélica Granger P.A.-C. [address] [place] [phone] 06/19/2022 Appointment Laboratory Medicine Angélica Granger P.A.-C. [address] [place] [phone] 07/03/2022 Appointment Laboratory Medicine Angélica Granger P.A.-C. [address] [place] [phone] 07/17/2022 Appointment Laboratory Medicine Angélica Granger P.A.-C. [address] [place] [phone] 07/31/2022 Appointment Laboratory Medicine Angélica Granger P.A.-C. [address] [place] [phone] 08/14/2022 Appointment Laboratory Medicine Angélica Granger P.A.-C. [address] [place] [phone] 08/28/2022 Appointment Laboratory Medicine Angélica Granger P.A.-C. [address] [place] [phone] documented as of this encounter Visit Diagnoses Not on filedocumented in this encounter Additional Health Concerns Assessment Noted Time PHQ-9 Depression Total Score: 4 11/28/2020 10:17 AM CD T documented as of this encounter Care Teams Major Account Representative Relationship Specialty Start Date End Date Elsewhere, Pcp PCP - General Family Medicine 07/29/17 [facility] - Laboratory Medicine 04/12/[address] [phone] documented as of this encounter
--- OUTSIDE RECORDS SUMMARY | 2022-04-13 11:54 | XMS_ITS | Encounter Summary ---
:1955 Author Organization [facility] Address [address] [place] [address] Care Team Providers Name Role Phone Elsewhere, Pcp Primary Care Provider Unavailable Reason for Visit Reason Comments Med Refill Encounter Details Date Type Department Care Team Description 02/04/2022 Refill Department of Otorhinolaryngology Patricia Griggs Med Refill in [facility] jose Gordon M.D. 200 [facility] [address] [place] [address] [place], [place] [phone] (Wo rk) Social History Tobacco Use Types [...] or relatives? How often do you attend rastafarian or More than 4 times per year 12/15/2021 gnosticism services? Do you belong to any clubs or No 12/15/2021 organizations such as rastafarian groups, unions, fraternal or athletic groups, or [...] place to sleep or slept in a half-way (including now)? Education Answer Date Recorded What is the highest level of school Associate degree: jennifer reyes, 12/14/2021 you have completed or the highest technical, or vocational p beatriz degree you have received? 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 [address] [place] [address] [phone] 04/25/2022 Office Visit Otorhinolaryngology Dex Matta APRN, C.N.P., M.S.N. [address] [place] [address] [phone] 05/08/2022 Appointment Laboratory Medicine Angélica Granger, P.A.-C. [address] [place] [address] [phone] 05/08/2022 Clinical Admitting/Central Communication Scheduling 05/10/2022 Appointment Radiology Jeremie Rose M.D. [address] [place] [phone] 05/10/2022 Comprehensive Visit Orthopedic Surgery Warner Graves M.D. [address] [place] [phone] 05/22/2022 Appointment Laboratory Medicine Angélica Granger P.A.-C. [address] [place] [phone] 06/05/2022 Appointment Laboratory Medicine Angélica Granger P.A.-C. [address] [place] [phone] 06/19/2022 Appointment Laboratory Medicine Angélica Granger P.A.-C. [address] [place] [phone] 07/03/2022 Appointment Laboratory Medicine Angélica Granger P.A.-C. [address] [place] [phone] 07/17/2022 Appointment Laboratory Medicine Angélica Granger P.A.-C. [address] [place] [phone] 07/31/2022 Appointment Laboratory Medicine Angélica Granger P.A.-C. [address] [place] [phone] 08/14/2022 Appointment Laboratory Medicine Angélica Granger P.A.-C. [address] [place] [phone] 08/28/2022 Appointment Laboratory Medicine Angélica Granger P.A.-C. [address] [place] [phone] documented as of this encounter Visit Diagnoses Not on filedocumented in this encounter Additional Health Concerns Infection Onset Date Last Indicated Resolved Time COVID19 Pending 02/04/2022 02/04/2022 02/05/2022 2:30 PM CDT Assessment Noted Time PHQ-9 Depression Total Score: 4 11/28/2020 10:17 AM CD T documented as of this encounter Care Teams Linotype Mechanic Relationship Specialty Start Date End Date Elsewhere, Pcp PCP - General Family Medicine 07/29/17 [facility] - Laboratory Medicine 04/12/20 [place] [phone] documented as of this encounter
--- OUTSIDE RECORDS SUMMARY | 2022-04-13 11:54 | XMS_ITS | Encounter Summary ---
:1955 Author Organization [facility] Address [address] [place] [address] Care Team Providers Name Role Phone Elsewhere, Pcp Primary Care Provider Unavailable Reason for Referral Appointment Request (Routine) - Closed Specialty Diagnoses / Procedures Referred By Contact Refer red To Contact Diagnoses Chronic Obstructive Pulmonary Disease Without Exacerbation (HCC) Connie Aaron, Procedures Pulmonary Function Tests M.B.B.S. 200 [place] [address] Referral ID Status Reason Start Date Expiration Date Visits Requ ested Visits Authorized [id number] Closed 01/31/2022 01/31/2023 1 Encounter Details Date Type Department Care Team Description 01/30/2022 Orders Only [facility] Connie Aaron Chronic Obstructive [address] [facility] David M.B.B.S. Pulmonary Disease [place], [place] [address] [facility] Without Exacerbation [phone] [place], [place] ([facility]) (Primary Dx) [id number] Social History Tobacco Use Types Packs/Day Years [...] or relatives? How often do you attend christian or More than 4 times per year 12/15/2021 spiritism services? 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 [address] [place] [phone] 05/08/2022 Appointment Laboratory Medicine Angélica Granger P.A.-CDemetrius [address] [place] [phone] 05/08/2022 Clinical Admitting/Central Communication Scheduling 05/10/2022 Appointment Radiology Jeremie Rose M.D. [address] [place] [phone] 05/10/2022 Comprehensive Visit Orthopedic Surgery Warner Graves M.D. [address] [place] [phone] 05/22/2022 Appointment Laboratory Medicine Angélica Granger P.A.-C. [address] [place] [phone] 06/05/2022 Appointment Laboratory Medicine Angélica Granger P.A.-C. [address] [place] [phone] 06/19/2022 Appointment Laboratory Medicine Angélica Granger P.A.-C. [address] [place] [phone] 07/03/2022 Appointment Laboratory Medicine Angélica Granger P.A.-C. [address] [place] [phone] 07/17/2022 Appointment Laboratory Medicine Angélica Granger P.A.-C. [address] [place] [phone] 07/31/2022 Appointment Laboratory Medicine Angélica Granger P.A.-C. [address] [place] [phone] 08/14/2022 Appointment Laboratory Medicine Angélica Granger P.A.-C. [address] [place] [phone] 08/28/2022 Appointment Laboratory Medicine Angélica Granger P.A.-C. [address] [place] [phone] documented as of this encounter Results Pulmonary Function Tests (02/07/2022 1:23 PM CDT) P athologist Signature VC MAX PRE 3.08 L 02/07/2022 [facility] 2:36 PM CDT [address] FVC 3.08 L 02/07/2022 [facility] 2:36 PM CDT SUITE FEV1 1.66 L 02/07/2022 [facility] 2:36 PM CDT SUITE FEV1/FVC 54.03 % 02/07/2022 [facility] 2:36 PM CDT SUITE JAS04-85% 0.79 L/s 02/07/2022 [facility] 2:36 PM CDT SUITE PEF PRE 5.42 L/s 02/07/2022 [facility] 2:36 PM CDT SU[address] FET PRE 13.93 sec 02/07/2022 [facility] 2:36 PM CDT SUITE DLCO 17.81 ml/(min*mm 02/07/2022 [facility] Hg) 2:36 PM CDT SUITE DLCOc 19.62 ml/(min*mm 02/07/2022 [facility] Hg) 2:36 PM CDT SUITE HB 11.70 g(Hb)/dL 02/07/2022 [facility] 2:36 PM CDT SUITE VA 4.77 L 02/07/2022 [facility] 2:36 PM CDT [address] [id number] 96.00 % 02/07/2022 [facility] 2:36 PM CDT SUITE PulseRest 96.00 1/min 02/07/2022 [facility] 2:36 PM CDT SUITE [id number] 93.00 % 02/07/2022 [facility] 2:36 PM CDT SUITE PulseExer 116.00 1/min 02/07/2022 [facility] 2:36 PM CDT SUITE EXER TIME 3.00 min 02/07/2022 [facility] 2:36 PM CDT SUITE STEP HEIGHT 9.00 Inch 02/07/2022 [facility] PRE 2:36 PM CDT SUITE TLC 6.90 L 02/07/2022 [facility] 2:36 PM CDT SUITE VC PRE 3.06 L 02/07/2022 [facility] 2:36 PM CDT SUITE FRCPLETH 4.67 L 02/07/2022 [facility] PROVBASE 2:36 PM CDT SUITE RV 3.84 L 02/07/2022 [facility] 2:36 PM CDT SUITE RV % TLC PRE 55.68 % 02/07/2022 [facility] 2:36 PM CDT SUITE TLC% 101 % % 02/07/2022 [facility] 2:36 PM CDT SUITE % PRED RV 164 % % 02/07/2022 [facility] 2:36 PM CDT SUITE % PRED VC MAX 74 % % 02/07/2022 [facility] 2:36 PM CDT SUITE FVC% 74 % % 02/07/2022 [facility] 2:36 PM CDT SUITE FEV1% 52 % % 02/07/2022 [facility] 2:36 PM CDT SUITE % PRED 71 % % 02/07/2022 [facility] FEV1/FVC 2:36 PM CDT SUITE % PRED FEF 32 % % 02/07/2022 [facility] 25-75% 2:36 PM CDT SUITE % PRED PEF 67 % % 02/07/2022 [facility] 2:36 PM CDT SUITE DLCO% 70 % % 02/07/2022 [facility] 2:36 PM CDT SUITE DLCOc% 78 % % 02/07/2022 [facility] 2:36 PM CDT SUITE PRED TLC 6.85 02/07/2022 [facility] 2:36 PM CDT SUITE PRED RV 2.34 02/07/2022 [facility] 2:36 PM CDT SUITE PRED VC MAX 4.15 02/07/2022 [facility] 2:36 PM CDT SUITE PRED FVC 4.15 02/07/2022 [facility] 2:36 PM CDT SUITE PRED FEV 1 3.17 02/07/2022 [facility] 2:36 PM CDT SUITE PRED FEV1/FVC 76.6 02/07/2022 [facility] 2:36 PM CDT SUITE PRED FEF 2.49 02/07/2022 [facility] 25-75% 2:36 PM CDT SUITE PRED PEF 8.0 02/07/2022 [facility] 2:36 PM CDT SUITE PRED DLCO 25.3 02/07/2022 [facility] 2:36 PM CDT SUITE PRED DLCOc 25.3 02/07/2022 [facility] 2:36 PM CDT SUITE Specimen (Source) Anatomical Collection Method Collection Time Re ceived Time Location / / Volume Laterality 02/07/2022 1:23 PM CDT Impressions [facility] - 02/07/2022 2:36 PM C DT Abnormal. Moderate obstruction and air t rapping. Diffusing capacity adjusted for hemoglobin is normal. Pulse oximetry is normal at rest and during exercise. Compared to 08/31/2020, FEV1 and TLC have declined . Narrative This result has an attachment that is no t available. Procedure Note Trevor Braton M.D. - 2021 IMPRESSION: Abnormal. Moderate obstruction and air t rapping. Diffusing capacity adjusted for hemoglobin is normal. Pulse oximetry is normal at rest and during exercise. Compared to 08/31/2020, FEV1 and TLC have declined. Connie Barron PFT ORDERABLES Performing Organization Address City/State/ZIP Code Phon e Number [facility] NA documented in this encounter Visit Diagnoses Diagnosis Chronic Obstructive Pulmonary Disease Wi thout Exacerbation (HCC) - Primary documented in this encounter Additional Health Concerns Assessment Noted Time PHQ-9 Depression Total Score: 4 11/28/2020 10:17 AM CD T documented as of this encounter Care Teams Neurosurgical Nurse Practitioner Relationship Specialty Start Date End Date Elsewhere, Pcp PCP - General Family Medicine 07/29/17 [facility] - Laboratory Medicine 04/12/[address] [address] documented as of this encounter
--- OUTSIDE RECORDS SUMMARY | 2022-04-13 11:54 | XMS_ITS | Encounter Summary ---
:1955 Author Organization [facility] Address [address] [place] [address] Care Team Providers Name Role Phone Elsewhere, Pcp Primary Care Provider Unavailable Encounter Details Date Type Department Care Team Description 01/30/2022 Hospital Encounter Department of Angélica Granger ant Liver (HCC); Laboratory Medicine J PDemetriusADurgaC. Medication Therapy [facility]iary Not Anticoa gulant in [address] [phone] [place], [place] [phone] [address] (Work) [phone] Social History Tobacco Use Types Packs/Day Years [...] More than 4 times per year 12/15/2021 synagogue services? Do you belong to any clubs [...] at Date Recorded Male 05/16/2020 4:27 PM [employer] documented as of this encounter Medications at [...] 0 01/04/2021 TIKA) 100 mg capsule mouth. coenzyme Q10 (CO Q-10) Take 1 capsule by 0 2017 200 mg capsule mouth daily. fluticasone propionate Administer 2 sprays 16 g 12 09/22 (FLONASE) 50 into each nostril mcg/actuation nasal daily. spray isavuconazonium Take 2 capsules 180 capsule 0 [...] Rx 1-60-300 Take 1 tablet by 0 // 22 mg-mg-mcg tablet mouth daily with dinner. sulfamethoxazole-trimeth Take 1 tablet by 90 tablet 0 01/2104/21/2022 oprim (BACTRIM,SEPTRA) mouth daily. Take 400-80 mg per tablet after dialysis on dialysis days. traZODone (DESYREL) 100 Take 1 tablet (100 90 tablet 3 /12/202108/27/2022 mg tablet mg total) by mouth at bedtime as needed for sleep. valGANciclovir (VALCYTE) Take 1 tablet (450 45 tablet 0 12/202103/27/2022 450 mg mg total) by mouth tabletIndications: every other day. Transplant Liver (HCC), take every 48 hours Medication Therapy Long after dialysis Term Not Anticoagulant, Infection Cytomegalovirus (HCC) budesonide (PULMICORT) ADD 1 RESPULE TO 8 360 mL 11 07/3002/07/2022 0.5 mg/2 mL nebulizer OZ SALINE AND solution IRRIGATE EACH SIDE OF NOSE TWICE DAILY DIRECTED ipratropium (ATROVENT) Administer 2 sprays 30 mL 01/2102/05/2022 21 mcg (0.03 %) nasal into each nostril 2 spray (two) times a day. upto 5 times daily as needed. lidocaine-prilocaine Apply 1 application 30 g 11 202102/07/2022 (EMLA) 2.5-2.5 % cream topically See Admin Instructions. 2 hours prior to dialysis. mycophenolate (CELLCEPT) Take 2 capsules 360 capsule 3 10/1902/15/2022 250 mg (500 mg total) by capsuleIndications: mouth 2 (two) times Transplant Liver (HCC), a day. Do not Infection break, cut, or open Cytomegalovirus (HCC), capsules. 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 Medication Therapy Penitentiary Not Anticoagulant torsemide (DEMADEX) 10 Take 3 tablets (30 60 tablet 1 10/1701/31/2022 mg tablet mg total) by mouth daily. documented as 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 [address] [place] [phone] 04/25/2022 Office Visit Otorhinolaryngology Dex Matta APRN, C.N.P., M.S.NDemetrius [address] [place] [phone] 05/08/2022 Appointment Laboratory Medicine Angélica Granger P.A.-C. [address] [place] [phone] 05/08/2022 Clinical Admitting/Central Communication Scheduling 05/10/2022 Appointment Radiology Jeremie Rose M.D. [address] [place] [phone] 05/10/2022 Comprehensive Visit Orthopedic Surgery Warner Graves M.D. [address] [place] [phone] 05/22/2022 Appointment Laboratory Medicine Angélica Granger P.A.-C. [address] [place] [phone] 06/05/2022 Appointment Laboratory Medicine Angélica Granger P.A.-C. [address] [place] [phone] 06/19/2022 Appointment Laboratory Medicine Angélica Granger P.A.-C. [address] [place] [phone] 07/03/2022 Appointment Laboratory Medicine Angélica Granger P.A.-C. [address] [place] [phone] 07/17/2022 Appointment Laboratory Medicine Angélica Granger P.A.-C. [address] [place] [phone] 07/31/2022 Appointment Laboratory Medicine Angélica Granger P.A.-C. [address] [place] [phone] 08/14/2022 Appointment Laboratory Medicine Angélica Granger P.A.-C. [address] [place] [phone] 08/28/2022 Appointment Laboratory Medicine Angélica Granger P.A.-C. [address] [place] [phone] documented as of this encounter Procedures Procedure Name Priority Date/Time Associated Diagnosis Comme nts CMV DNA DETECT/QUANT, Routine 01/30/2022 8:04 Transplant Liver Results for this P AM CDT (HCC) procedure are in Medication Therapy the resul ts [employer] Not section. Anticoagulant TACROLIMUS LEVEL, B Routine 01/30/2022 8:04 Transplant Liver R esults for this AM CDT (HCC) procedure are in Medication Therapy the resul ts Penitentiary Not section. Anticoagulant CBC WITHOUT Routine 01/30/2022 8:04 Transplant Liver Results for this DIFFERENTIAL, B AM CDT (HCC) procedure are in Medication Therapy the resul ts [employer] Not section. Anticoagulant GLUCOSE, FASTING, S/P Routine 01/30/2022 8:04 Transplant Liver Results for this AM CDT (HCC) procedure are in Medication Therapy the resul ts [employer] Traffic Instructor Not section. Anticoagulant COMPREHENSIVE Routine 01/30/2022 8:04 Transplant Liver Results for this METABOLIC PANEL, S/P AM CDT (HCC) procedure are in Medication Therapy the resul ts Penitentiary Not section. Anticoagulant documented in this encounter Results (ABNORMAL) Tacrolimus, B (01/30/2022 8:04 AM CDT) athologist Signature Tacrolimus, B 2.7 (L) 5.0-15.0 01/31/2022 [facility] (Trough) 11:14 AM CDT ng/mL Comment: ----ADDITIONAL INFORMATION---- Target steady-state trough concentration s vary depending on the type of transplant, concomitant immunosuppressio n, clinical/institutional protocols, and time post-transplant. Results should be interpreted in conjunction with this clinical information and any physic al signs/symptoms of rejection/toxicity. Testing performed by Liquid Chromatograp hy-Tandem Mass Spectrometry (LC-MS/MS). This test was developed and its performa nce characteristics determined by [facility] in a manner consistent with CLIA requirements. This test has not been cleared or approved by the U.S. Mer d and Drug Administration. Specimen Anatomical Collection Method Collection Time Receive d Time (Source) Location / / Volume Laterality Blood (Blood, 01/30/2022 8:04 AM 02/01/20 22 7:39 Venous) CDT AM CDT Angélica Granger P.A.-C. LAB BLOOD NON ADD-ON Performing Organization Address [facility] Phon e Number [facility] [address] [place] [address] Dr MURILLO [address] [place] [address] Laboratory Medicine and Pathology [address] [place] [address] Dr. MURILLO CMV DNA Detect / Quant, Plasma (01/30/2022 8:04 AM CDT) [facility] Method Time Signature CMV DNA Undetected Undetected 01/31/2022 [facility] Detect/Quant, IU/mL 2:38 PM CDT P Comment: Result in log IU/mL is Undetected. ----ADDITIONAL INFORMATION---- The quantification range of this assay i s 35 to 10,000,000 IU/mL (1.54 log to 7.00 log IU/mL). Testing was performed u sing the tika CMV test ([employer] with the tika 6800 System. Specimen Anatomical Collection Method Collection Time Receive d Time (Source) Location / / Volume Laterality Blood (Blood, 01/30/2022 8:04 AM 02/01/20 22 7:07 Venous) CDT AM CDT Angélica Granger P.A.-C. LAB MICROBIOLOGY - BLOOD ORD ERABLES Performing Organization Address [facility] Phon e Number [facility] [address] [place] [address] [address] [facility] [place] [address] Laboratory Medicine and Pathology [address] [place] [address] Dr. MURILLO (ABNORMAL) Glucose, Fasting (01/30/2022 8:04 AM CDT) P athologist Signature Glucose, P 113 (H) 70 - 100 01/30/2022 [facility] mg/dL 8:34 AM CDT Last Intake 11 hr 01/30/2022 [facility] 8:04 AM CDT Specimen Anatomical Collection Method Collection Time Receive d Time (Source) Location / / Volume Laterality Blood (Blood, 01/30/2022 8:04 AM 01/31/20 8:05 Venous) CDT AM CDT Angélica Granger P.A.-C. LAB BLOOD NON ADD-ON Performing Organization Address City/State/ZIP Code Phon e Number [address] [address] [place] [address] [address] (ABNORMAL) Comprehensive Metabolic Panel (01/30/2022 8:04 AM CDT) Analysis Performed At Patho logist Time Signature Potassium, P 3.7 3.6 - 5.2 01/30/2022 [facility] mmol/L 8:36 AM CDT Sodium, P 130 (L) 135 - 145 01/30/2022 [facility] mmol/L 8:36 AM CDT Chloride, P 92 (L) 98 - 107 01/30/2022 [facility] mmol/L 8:36 AM CDT Bicarbonate, P 24 22 - 29 01/30/2022 [facility] mmol/L 8:36 AM CDT Anion Gap, P 14 7 - 15 01/30/2022 [facility] 8:36 AM CDT BUN (Blood Urea 34 (H) 8 - 24 01/30/2022 [facility] Nitrogen), P mg/dL 8:36 AM CDT Creatinine 4.53 (H) 0.74 - 01/30/2022 [facility] 1.35 mg/dL 8:36 AM CDT eGFR-Black/Afri <15 (L) >=60 01/30/2022 [facility] can Ecuadorean mL/min/BSA 8:36 AM CDT Comment: ----ADDITIONAL INFORMATION---- Estimated GFR calculated using the 2009 CKD_EPI creatinine equation. eGFR Non-Black/ <15 (L) >=60 mL/min/BSA 01/30/2022 8:36 AM CDT [facility] Ecuadorean Comment: ----ADDITIONAL INFORMATION---- Estimated GFR calculated using the 2009 CKD_EPI creatinine equation. Calcium, Total, P 8.8 8.8 - 10.2 mg/dL 01/30/2022 8:36 AM CDT [facility] Glucose, P CANCELED mg/dL 01/30/2022 8:05 AM CDT CN[facility] Comment: Duplicate test request. Result canceled by the ancillary. Protein, Total, P 6.2 (L) 6.3 - 7.9 g/dL 01/30/2022 8:36 A M CDT [facility] Albumin, P 3.7 3.5 - 5.0 g/dL 01/30/2022 8:36 AM CDT C NFL Aspartate Aminotransferase 33 8 - 48 U/L 01/30/2022 8 :36 AM CDT [facility] (AST), P Alkaline Phosphatase, P 154 (H) 40 - 129 U/L 01/30/2022 8: 36 AM CDT [facility] Alanine Aminotransferase 25 7 - 55 U/L 01/30/2022 8:3 6 AM CDT [facility] (ALT), P Bilirubin, Total, P 0.3 <=1.2 mg/dL 01/30/2022 8:36 AM CDT [facility] Specimen Anatomical Collection Method Collection Time Receive d Time (Source) Location / / Volume Laterality Blood (Blood, 01/30/2022 8:04 AM 01/31/20 8:05 Venous) CDT AM CDT Angélica Granger P.A.-C. LAB BLOOD ADD-ON Performing Organization Address City/State/ZIP Code Phon e Number [facility]- [address] [place] [id number] [place] [address] (ABNORMAL) CBC without Differential (01/30/2022 8:04 AM CDT) [facility] gist Method Time Signature Hemoglobin 11.2 (L) 13.2 - 01/30/2022 [facility] 16.6 g/dL 10:19 AM CDT Hematocrit 34.2 (L) 38.3 - 01/30/2022 [facility] 48.6 % 10:19 AM CDT Erythrocytes 3.37 (L) 4.35 - 01/30/2022 [facility] 5.65 10:19 AM CDT x10(12)/L MCV 101.5 (H) 78.2 - 01/30/2022 [facility] 97.9 fL 10:19 AM CDT RBC Distrib Width 11.7 (L) 11.8 - 01/30/2022 [facility] 14.5 % 10:19 AM CDT Platelet Count 289 135 - 317 01/30/2022 [facility] x10(9)/L 10:19 AM CDT Leukocytes 5.9 3.4 - 9.6 01/30/2022 [facility] x10(9)/L 10:19 AM CDT Specimen Anatomical Collection Method Collection Time Receive d Time (Source) Location / / Volume Laterality Blood (Blood, 01/30/2022 8:04 AM 01/31/20 8:05 Venous) CDT AM CDT Angélica Granger P.A.-C. LAB BLOOD ADD-ON Performing Organization Address City/State/[facility] Code Phon e Number [facility]- [address] [place] [address] [address] [place], [place] [phone] [place] [address] [place] [address] [address] documented in this encounter Visit Diagnoses Diagnosis Transplant Liver (HCC) Medication Therapy Penitentiary Not Anticoa gulant documented in this encounter Additional Health Concerns Assessment Noted Time PHQ-9 Depression Total Score: 4 11/28/2020 10:17 AM CD T documented as of this encounter Care Teams Medical Concierge Relationship Specialty Start Date End Date Elsewhere, Pcp PCP - General Family Medicine 07/29/17 [facility] - Laboratory Medicine 04/12/[address] [address] documented as of this encounter
--- OUTSIDE RECORDS SUMMARY | 2022-04-13 11:54 | XMS_ITS | Encounter Summary ---
:1955 Author Organization [facility] Address [address] [place] [address] Care Team Providers Name Role Phone Elsewhere, Pcp Primary Care Provider Unavailable Encounter Details Date Type Department Care Team Description 02/13/2022 Hospital Encounter Department of Angélica Granger ant Liver (HCC); Laboratory Medicine J PDemetriusADurgaC. Medication Therapy Retirement Not Anticoa gulant in [address] [address] [place], [place] [phone] (Work) [phone] Social History Tobacco Use Types Packs/Day Years [...] or relatives? How often do you attend christianity or More than 4 times per year 12/15/2021 episcopalian services? 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 200-62.5-25 mcg inhaler mycophenolate (CELLCEPT) Take 2 capsules 360 capsule 3 10/1902/15/2022 250 mg (500 mg total) by capsuleIndications: mouth 2 (two) times Transplant Liver (HCC), a day. Do not Infection break, cut, or open Cytomegalovirus (HCC), capsules. Medication Therapy Retirement Not Anticoagulant tacrolimus (PROGRAF) 0.5 Take 1 capsule (0.5 90 capsule 3 03/15/2022 mg capsuleIndications: mg total) by mouth Transplant Liver (HCC), daily. 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 [address] [place] [address] 04/25/2022 Office Visit Otorhinolaryngology Dex Matta APRN CDemetriusNJuan Miguel, M.S.N. [address] [place] [phone] 05/08/2022 Appointment Laboratory Medicine Angélica Granger P.A.-C. [address] [place] [phone] 05/08/2022 Clinical Admitting/Central Communication Scheduling 05/10/2022 Appointment Radiology Jeremie Rose M.D. [address] [place] [phone] 05/10/2022 Comprehensive Visit Orthopedic Surgery [place] Graves M.D. [address] [place] [phone] 05/22/2022 Appointment Laboratory Medicine Angélica Granger P.A.-C. [address] [place] [phone] 06/05/2022 Appointment Laboratory Medicine Angélica Granger P.A.-C. [address] [place] [phone] 06/19/2022 Appointment Laboratory Medicine Angélica Granger P.A.-C. [address] [place] [phone] 07/03/2022 Appointment Laboratory Medicine Angélica Granger P.A.-C. [address] [place] [phone] 07/17/2022 Appointment Laboratory Medicine Angélica Granger P.A.-C. [address] [place] [phone] 07/31/2022 Appointment Laboratory Medicine Angélica Granger P.A.-C. [address] [place] [phone] 08/14/2022 Appointment Laboratory Medicine Angélica Granger P.A.-C. [address] [place] [phone] 08/28/2022 Appointment Laboratory Medicine Angélica Granger P.A.-C. [address] [place] [phone] documented as of this encounter Procedures Procedure Name Priority Date/Time Associated Diagnosis Comme nts TACROLIMUS LEVEL, B Routine 02/13/2022 7:47 Transplant Liver R esults for this AM CDT (HCC) procedure are in Medication Therapy the resul ts Old Testament Professor Not section. Anticoagulant CBC WITHOUT Routine 02/13/2022 7:47 Transplant Liver Results for this DIFFERENTIAL, B AM CDT (HCC) procedure are in Medication Therapy the resul ts Retirement Not section. Anticoagulant GLUCOSE, FASTING, S/P Routine 02/13/2022 7:47 Transplant Liver Results for this AM CDT (HCC) procedure are in Medication Therapy the resul ts Retirement Not section. Anticoagulant COMPREHENSIVE Routine 02/13/2022 7:47 Transplant Liver Results for this METABOLIC PANEL, S/P AM CDT (HCC) procedure are in Medication Therapy the resul ts Retirement Not section. Anticoagulant CMV DNA DETECT/QUANT, Routine 02/13/2022 7:46 Transplant Liver Results for this P AM CDT (HCC) procedure are in Medication Therapy the resul ts Old Testament Professor Not section. Anticoagulant documented in this encounter Results (ABNORMAL) Tacrolimus, B (02/13/2022 7:47 AM CDT) P athologist Signature Tacrolimus, B 1.2 (L) 5.0-15.0 02/14/2022 SDSC (Trough) 2:18 PM CDT ng/mL Comment: ----ADDITIONAL INFORMATION---- Target steady-state trough concentration s vary depending on the type of transplant, concomitant immunosuppressio n, clinical/institutional protocols, and time post-transplant. Results should be interpreted in conjunction with this clinical information and any physic al signs/symptoms of rejection/toxicity. Testing performed by Liquid Chromatograp hy-Tandem Mass Spectrometry (LC-MS/MS). This test was developed and its performa nce characteristics determined by [facility] in a manner consistent with CLIA requirements. This test has not been cleared or approved by the U.S. Mer d and Drug Administration. Specimen Anatomical Collection Method Collection Time Receive d Time (Source) Location / / Volume Laterality Blood (Blood, 02/13/2022 7:47 AM 02/15/20 7:16 Venous) CDT AM CDT Angélica Granger P.A.-C. LAB BLOOD NON ADD-ON Performing Organization Address City/State/ZIP Code Phon e Number [facility] [address] [place] [address] [place] [address] Laboratory Medicine and Pathology [address] [place] (ABNORMAL) Glucose, Fasting (02/13/2022 7:47 AM CDT) P athologist Signature Glucose, P 223 (H) 70 - 100 02/13/2022 [facility] mg/dL 8:08 AM CDT Last Intake 1 hr 02/13/2022 [facility] 7:50 AM CDT Specimen Anatomical Collection Method Collection Time Receive d Time (Source) Location / / Volume Laterality Blood (Blood, 02/13/2022 7:47 AM 02/14/20 7:50 Venous) CDT AM CDT Angélica Granger P.A.-C. LAB BLOOD NON ADD-ON Performing Organization Address City/State/ZIP Code Phon e Number [address] [address] [facility] [place] [address] (ABNORMAL) Comprehensive Metabolic Panel (02/13/2022 7:47 AM CDT) Analysis Performed At Patho logist Time Signature Potassium, P 4.3 3.6 - 5.2 02/13/2022 [facility] mmol/L 8:12 AM CDT Sodium, P 130 (L) 135 - 145 02/13/2022 [facility] mmol/L 8:12 AM CDT Chloride, P 95 (L) 98 - 107 02/13/2022 [facility] mmol/L 8:12 AM CDT Bicarbonate, P 22 22 - 29 02/13/2022 [facility] mmol/L 8:12 AM CDT Anion Gap, P 13 7 - 15 02/13/2022 [facility] 8:12 AM CDT BUN (Blood Urea 39 (H) 8 - 24 02/13/2022 [facility] Nitrogen), P mg/dL 8:12 AM CDT Creatinine 3.49 (H) 0.74 - 02/13/2022 [facility] 1.35 mg/dL 8:12 AM CDT Estimated GFR 18 (L) >=60 02/13/2022 [facility] (eGFR) mL/min/BSA 8:12 AM CDT Comment: Estimated GFR calculated using the 2020 CKD_EPI creatinine equation. Calcium, Total, P 8.9 8.8 - 10.2 mg/dL 02/13/2022 8:12 AM CDT [facility] Glucose, P CANCELED mg/dL 02/13/2022 7:50 AM CDT [facility] Comment: Duplicate test request. Result canceled by the ancillary. Protein, Total, P 6.7 6.3 - 7.9 g/dL 02/13/2022 8:12 A M CDT [facility] Albumin, P 4.2 3.5 - 5.0 g/dL 02/13/2022 8:12 AM CDT C NFL Aspartate Aminotransferase 28 8 - 48 U/L 02/13/2022 8 :12 AM CDT [facility] (AST), P Alkaline Phosphatase, P 188 (H) 40 - 129 U/L 02/13/2022 8: 12 AM CDT [facility] Alanine Aminotransferase 38 7 - 55 U/L 02/13/2022 8:1 2 AM CDT [facility] (ALT), P Bilirubin, Total, P 0.3 <=1.2 mg/dL 02/13/2022 8:12 AM CDT [facility] Specimen Anatomical Collection Method Collection Time Receive d Time (Source) Location / / Volume Laterality Blood (Blood, 02/13/2022 7:47 AM 08/24/20 22 7:50 Venous) CDT AM CDT Angélica Granger P.A.-C. LAB BLOOD ADD-ON Performing Organization Address City/State/ZIP Code Phon e Number [address] [address] [facility] [place] [address] (ABNORMAL) CBC without Differential (02/13/2022 7:47 AM CDT) [facility] INTEX Program Method Time Signature Hemoglobin 11.4 (L) 13.2 - 02/13/2022 [facility] 16.6 g/dL 8:29 AM CDT Hematocrit 34.4 (L) 38.3 - 02/13/2022 [facility] 48.6 % 8:29 AM CDT Erythrocytes 3.48 (L) 4.35 - 02/13/2022 [facility] 5.65 8:29 AM CDT x10(12)/L MCV 98.9 (H) 78.2 - 02/13/2022 [facility] 97.9 fL 8:29 AM CDT RBC Distrib Width 12.1 11.8 - 02/13/2022 [facility] 14.5 % 8:29 AM CDT Platelet Count 394 (H) 135 - 317 02/13/2022 [facility] x10(9)/L 8:29 AM CDT Leukocytes 12.3 (H) 3.4 - 9.6 02/13/2022 [facility] x10(9)/L 8:29 AM CDT Specimen Anatomical Collection Method Collection Time Receive d Time (Source) Location / / Volume Laterality Blood (Blood, 02/13/2022 7:47 AM 02/14/20 7:50 Venous) CDT AM CDT Angélica Granger P.A.-C. LAB BLOOD ADD-ON Performing Organization Address City/State/ZIP Code Phon e Number [facility] [address] [place] [address] [facility] [place] [address] CMV DNA Detect / Quant, Plasma (02/13/2022 7:46 AM CDT) [facility] gist Method Time Signature CMV DNA Undetected Undetected 02/15/2022 [facility] Detect/Quant, IU/mL 6:53 PM CDT P Comment: Result in log IU/mL is Undetected. ----ADDITIONAL INFORMATION---- The quantification range of this assay i s 35 to 10,000,000 IU/mL (1.54 log to 7.00 log IU/mL). Testing was performed u sing the tika CMV test ([employer] with the tika 6800 System. Specimen Anatomical Collection Method Collection Time Receive d Time (Source) Location / / Volume Laterality Blood (Blood, 02/13/2022 7:46 AM 02/15/20 7:43 Venous) CDT AM CDT Angélica Granger P.A.-C. LAB MICROBIOLOGY - BLOOD ORD ERABLES Performing Organization Address City/State/ZIP Code Phon e Number [facility] [address] [place] [address] [address] [facility] [place] [address] Laboratory Medicine and Pathology [address] [place] documented in this encounter Visit Diagnoses Diagnosis Transplant Liver (HCC) Medication Therapy Old Testament Professor Not Anticoa gulant documented in this encounter Additional Health Concerns Assessment Noted Time PHQ-9 Depression Total Score: 4 11/28/2020 10:17 AM CD T documented as of this encounter Care Teams Mud Logger Relationship Specialty Start Date End Date Elsewhere, Pcp PCP - General Family Medicine 07/29/17 [facility] - Laboratory Medicine 04/12/20 [place] [address] documented as of this encounter
--- OUTSIDE RECORDS SUMMARY | 2022-04-13 11:54 | XMS_ITS | Encounter Summary ---
:1955 Author [facility] Address [address] [place] [address] Care Team Providers Name Role Phone Elsewhere, Pcp Primary Care Provider Unavailable Reason for Visit Reason Comments Labs Only Encounter Details Date Type Department Care Team Description 02/08/2022 Clinical Communication Irena Game[facility] Only Center for R, R.N. Transplantation and [address] [place] [address] Clinical Regeneration in [place], [place] [address] [place] [address] [place] [phone] (Work) [phone] Social History Tobacco Use Types Packs/Day Years [...] More than 4 times per year 12/15/2021 anglican services? 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 - 02/08/2022 10:55 AM CDT Please review labs below. Bruce [...] Prednisone 5 mg daily Labs: Recent Labs 02/06/22 0801/30/22 0804 01/23/22 0811 01/16/22 0809 01/09/22 0807 01/02/22 0802 TACROLIMUS 1.5 L 2.7 L 1.4 L 2.2 L 3.0 L 3.1 L Recent Labs 02/06/22 0801/30/22 0804 01/23/22 0811 12/19/21 0835 12/03/21 0756 12/03/21 0755 HGB 11.7 L 11.2 L 12.0 L < > -- 9.8 L HCT 35.6 L 34.2 L 37.0 L < > -- 31.1 L WBC 8.2 5.9 4.3 < > -- 3.9 NEUTROPHILS -- -- -- -- -- See manual differential PLT 344 H 289 249 < > -- 292 NA 132 L 130 L 135 < > -- 138 KPLASMA 3.9 3.7 3.8 < > -- 3.9 MG -- -- -- -- -- 2.3 GLUCOSE CANCELED 127 H CANCELED 113 H CANCELED 99 < > -- 110 HGBA1C -- -- -- -- 5.6 -- BUN 29 H 34 H 33 H < > -- 45 H CREATININE 3.47 H 4.53 H 3.47 H < > -- 4.03 H ALKPHOS 177 H 154 H 171 H < > -- 107 AST 28 33 26 < > -- 21 ALT 32 25 23 < > -- 17 BILITOT 0.4 0.3 0.3 < > -- 0.3 BILIDIR -- -- -- -- -- <0.2 PT -- -- -- -- 11.1 -- INR -- -- -- -- 1.0 -- ALBUMIN 4.1 3.7 4.2 < > -- 4.2 < > = values in this interval not displayed. Serologies: Recent Labs 02/06/22 0801/30/22 0801/23/22 0811 01/16/22 0809 CMVQUANT <35 A Undetected <35 A <35 A No results for input(s): EBVDNADETQUP, EBVDNADETQUA, EBVQU, EBVCOPIES, EBVPCRQUANT in the last 2190 hours. No lab exists for component: SEBV Recent Labs 12/05/21 0722 HEPBANTSCRN Negative HEPBSABSCRN Positive HEPBCABSCRN Negative Immunosuppression Goal Range: 1.5-4 Current Lab Frequency: weekly Please advise on any changes or recommendations. ThanksYolie R.N. *All labs are now found in [facility] - Lab - Flowsheets. For further review of labs, please review there or under Synopsis* documented in this encounter Plan of Treatment Upcoming Encounters Date Type Specialty Care Team Description 04/24/2022 Appointment Laboratory Medicine Angélica Granger, P.A.-C. [address] [place] [phone] 04/25/2022 Office Visit Otorhinolaryngology Dex Matta, RAMONA, C.N.P., M.S.N. [address] [place] [phone] 05/08/2022 Appointment Laboratory Medicine Angélica Granger, P.A.-C. [address] [place] [phone] 05/08/2022 Clinical Admitting/Central Communication Scheduling 05/10/2022 Appointment Radiology Jeremie Rose M.D. [address] [place] [phone] 05/10/2022 Comprehensive Visit Orthopedic Surgery [place] Graves M.D. [address] [place] [phone] 05/22/2022 Appointment Laboratory Medicine Angélica Granger P.A.-C. [address] [place] [phone] 06/05/2022 Appointment Laboratory Medicine Angélica Granger P.A.-C. [address] [place] [phone] 06/19/2022 Appointment Laboratory Angélica Royal P.A.-C. [address] [place] [phone] 07/03/2022 Appointment Laboratory Angélica Royal P.A.-C. [address] [place] [phone] 07/17/2022 Appointment Laboratory Angélica Royal P.A.-C. [address] [place] [phone] 07/31/2022 Appointment Laboratory Angélica Royal P.A.-C. [address] [place] [phone] 08/14/2022 Appointment Laboratory Angélica Royal P.A.-C. [address] [place] [phone] 08/28/2022 Appointment Laboratory Angélica Royal P.A.-C. [address] [place] [phone] documented as of this encounter Visit Diagnoses Not on filedocumented in this encounter Additional Health Concerns Assessment Noted Time PHQ-9 Depression Total Score: 4 11/28/2020 10:17 AM CD T documented as of this encounter Care Teams Supervisor Word Processing Relationship Specialty Start Date End Date Elsewhere, Pcp PCP - General Family Medicine 07/29/17 [facility] - Laboratory Medicine 04/12/20 [place] [address] documented as of this encounter
--- OUTSIDE RECORDS SUMMARY | 2022-04-13 11:54 | XMS_ITS | Encounter Summary ---
:1955 Author Organization [facility] Address [address] [place] [address] Care Team Providers Name Role Phone Elsewhere, Pcp Primary Care Provider Unavailable Encounter Details Date Type Department Care Team Description 01/25/2022 Clinical Communication Irena Gamez [facility] for R, R.N. Transplantation and [address] [place] [address] Clinical [facility] in [place], [place] [address] [place] [address] [place] [phone] (Work) [phone] Social History Tobacco Use Types Packs/Day Years [...] or relatives? How often do you attend taoism or More than 4 times per year 12/15/2021 buddhist services? 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 - 01/25/2022 2:39 PM CDT Provider who reviewed results: Trung Plasencia Recommendations: Stop Bactrim when current supply runs out. Labs are due: 1 week Patient Online Services message was initiated by a [facility] Registered Nurse for report of test results and recommendations. Telephone Encounter - Yolie Dubois R.N. - 01/25/2022 2:39 PM CDT ----- Message from Trung Plasencia P.A.-C., M.S. sent at 01/25/2022 2:35 PM CDT ----- Thanks. I think this is airway colonization. I would have him finish up his current Bactrim supply and then stop it. Thanks so much Yolie. Trung documented in this encounter Plan of Treatment Upcoming Encounters Date Type Specialty Care Team Description 04/24/2022 Appointment Laboratory Medicine Angélica Granger P.A.-C. [address] [place] [address] 04/25/2022 Office Visit Otorhinolaryngology Dex Matta APRN C.NDemetriusP., M.S.N. [address] [place] [phone] 05/08/2022 Appointment Laboratory Medicine Angélica Granger P.A.-C. [address] [place] [phone] 05/08/2022 Clinical Admitting/Central Communication Scheduling 05/10/2022 Appointment Radiology Jeremie Rose M.D. [address] [place] [phone] 05/10/2022 Comprehensive Visit Orthopedic Surgery [place] Graves M.D. [address] [place] [phone] 05/22/2022 Appointment Laboratory Medicine Angélica Granger P.A.-C. [address] [place] [phone] 06/05/2022 Appointment Laboratory Medicine Angélica Granger P.A.-C. [address] [place] [phone] 06/19/2022 Appointment Laboratory Medicine Angélica Granger P.A.-C. [address] [place] [phone] 07/03/2022 Appointment Laboratory Medicine Angélica Granger P.A.-C. [address] [place] [phone] 07/17/2022 Appointment Laboratory Medicine Angélica Granger P.A.-C. [address] [place] [phone] 07/31/2022 Appointment Laboratory Medicine Angélica Granger P.A.-C. [address] [place] [phone] 08/14/2022 Appointment Laboratory Medicine Angélica Granger P.A.-C. [address] [place] [phone] 08/28/2022 Appointment Laboratory Medicine Angélica Granger P.A.-C. [address] [place] [phone] documented as of this encounter Visit Diagnoses Not on filedocumented in this encounter Additional Health Concerns Assessment Noted Time PHQ-9 Depression Total Score: 4 11/28/2020 10:17 AM CD T documented as of this encounter Care Teams Museum Educator Relationship Specialty Start Date End Date Elsewhere, Pcp PCP - General Family Medicine 07/29/17 [facility] - Laboratory Medicine 04/12/[address] [address] documented as of this encounter
--- OUTSIDE RECORDS SUMMARY | 2022-04-13 11:55 | XMS_ITS | Encounter Summary ---
:1955 Author Organization [facility] Address [address] [place] [address] Care Team Providers Name Role Phone Elsewhere, Pcp Primary Care Provider Unavailable Encounter Details Date Type Department Care Team Description 01/11/2022 Clinical Communication Department of Maricel Bartholomew Dermatology in , [place], [place] [phone] [address] [facility] (Work) [place] [address] Social History Tobacco Use Types Packs/Day Years [...] More than 4 times per year 12/15/2021 rastafarian services? Do you belong to any clubs [...] or the highest technical, or vocational p betariz degree you have received? 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 A: Patient states site doesn't look right and patient states he wants someone to take a look at itas he is going out of town next week. Patient denies S/S of infection. RN is unable to ask if patient prefers to send photos via portal as patient repeats his request to come to [place] so someone can look at the site R: RN recommends Surgical Nurse Wound check and transfers patient to Fe LOYA to schedule. RN encouraged patient to continue basic wound care PLAN - patient expresses thanks and denies further questions Disposition/Recommendation: patient transferred to the appointment desk Information/Education: patient/caller able to teach back Caller agreeable to plan of care: yes The following references were used: nursing clinical judgement documented in this encounter Plan of Treatment Upcoming Encounters Date Type Specialty Care Team Description 04/24/2022 Appointment Laboratory Medicine Angélica Granger P.ASky [address] [place] [phone] 04/25/2022 Office Visit Otorhinolaryngology Dex Matta APRN, C.N.P., M.S.NDemetrius [address] [place] [phone] 05/08/2022 Appointment Laboratory Medicine Angélica Granger P.A.-C. [address] [place] [phone] 05/08/2022 Clinical Admitting/Central Communication Scheduling 05/10/2022 Appointment Radiology Jeremie Rose M.D. [address] [place] [phone] 05/10/2022 Comprehensive Visit Orthopedic Surgery [place] Graves M.D. [address] [place] [phone] 05/22/2022 Appointment Laboratory Medicine Angélica Granger P.A.-C. [address] [place] [phone] 06/05/2022 Appointment Laboratory Medicine Angélica Granger P.A.-C. [address] [place] [phone] 06/19/2022 Appointment Laboratory Medicine Angélica Granger P.A.-C. [address] [place] [phone] 07/03/2022 Appointment Laboratory Medicine Angélica Granger P.A.-C. [address] [place] [phone] 07/17/2022 Appointment Laboratory Medicine Angélica Granger P.A.-C. [address] [place] [phone] 07/31/2022 Appointment Laboratory Medicine Angélica Granger P.A.-C. [address] [place] [phone] 08/14/2022 Appointment Laboratory Medicine Angélica Granger P.A.-C. [address] [place] [phone] 08/28/2022 Appointment Laboratory Medicine Angélica Granger P.A.-C. [address] [place] [phone] documented as of this encounter Visit Diagnoses Not on filedocumented in this encounter Additional Health Concerns Assessment Noted Time PHQ-9 Depression Total Score: 4 11/28/2020 10:17 AM CD T documented as of this encounter Care Teams Media Traffic Manager Relationship Specialty Start Date End Date Elsewhere, Pcp PCP - General Family Medicine 07/29/17 [facility] - Laboratory Medicine 04/12/[address] [phone] documented as of this encounter
--- OUTSIDE RECORDS SUMMARY | 2022-04-13 11:55 | XMS_ITS | Encounter Summary ---
:1955 Author Organization [facility] Address [address] [place] [address] Care Team Providers Name Role Phone Elsewhere, Pcp Primary Care Provider Unavailable Encounter Details Date Type Department Care Team Description 01/11/2022 Ancillary Procedure Department of Dermatology Social History Tobacco Use Types Packs/Day Years [...] or relatives? How often do you attend tenriism or More than 4 times per year 12/15/2021 caodaism services? 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 [address] [place] [phone] 04/25/2022 Office Visit Otorhinolaryngology Dex Matta APRN, C.N.P., M.S.N. [address] [place] [phone] 05/08/2022 Appointment Laboratory Medicine Angélica Granger P.A.-CDemetrius [address] [place] [phone] 05/08/2022 Clinical Admitting/Central Communication Scheduling 05/10/2022 Appointment Radiology Jeremie Rose M.D. [address] [place] [phone] 05/10/2022 Comprehensive Visit Orthopedic Surgery Warner Graves M.D. [address] [place] [phone] 05/22/2022 Appointment Laboratory Medicine Angélica Granger P.A.-CDemetrius [address] [place] [address] [phone] 06/05/2022 Appointment Laboratory Medicine Angélica Granger P.A.-CDemetrius [address] [place] [phone] 06/19/2022 Appointment Laboratory Medicine Angélica Granger P.A.-C. [address] [place] [phone] 07/03/2022 Appointment Laboratory Medicine Angélica Granger P.A.-C. [address] [place] [phone] 07/17/2022 Appointment Laboratory Medicine Angélica Granger P.A.-C. [address] [place] [phone] 07/31/2022 Appointment Laboratory Medicine Angélica Granger P.A.-C. [address] [place] [phone] 08/14/2022 Appointment Laboratory Medicine Angélica Granger P.A.-C. [address] [place] [phone] 08/28/2022 Appointment Laboratory Medicine Angélica Granger P.A.-C. [address] [place] [phone] documented as of this encounter Procedures Procedure Name Priority Date/Time Associated Comments Diagnosis DERMATOLOGY IMAGE Routine 01/11/2022 12:00 Result s for this EXAM PM CDT procedure are i n the results section. documented in this encounter Results ear, right conchal bowl 124 Mohs micrographic [...] documented as of this encounter Care Teams Supersonic Engineer Relationship Specialty Start Date End Date Elsewhere, Pcp PCP - General Family Medicine 07/29/17 [facility] - Laboratory Medicine 04/12/[address] [address] documented as of this encounter
--- OUTSIDE RECORDS SUMMARY | 2022-04-13 11:55 | XMS_ITS | Encounter Summary ---
:1955 Author Organization [facility] Address [address] [place] [address] Care Team Providers Name Role Phone Elsewhere, Pcp Primary Care Provider Unavailable Encounter Details Date Type Department Care Team Description 01/21/2022 Orders Only Curt aguirre [facility] Trung Plasencia for Transplantation and Mayuri Wyatt. Clinical Regeneration in [address] [place] [address] [place] [phone] [place] [address] [phone] Social History Tobacco Use Types Packs/Day Years [...] More than 4 times per year 12/15/2021 pentecostalism services? Do you belong to any clubs [...] place to sleep or slept in a alf (including now)? Education Answer Date Recorded What is the highest level of school Associate degree: jennifer reyes, 12/14/2021 you have completed or the highest technical, or vocational p beatriz degree you have received? 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 [address] [place] [phone] 04/25/2022 Office Visit Otorhinolaryngology Dex Matta APRN, C.N.P., M.S.N. [address] [place] [address] [phone] 05/08/2022 Appointment Laboratory Medicine Angélica Granger, P.A.-C. [address] [place] [address] [phone] 05/08/2022 Clinical Admitting/Central Communication Scheduling 05/10/2022 Appointment Radiology Jeremie Rose M.D. [address] [place] [phone] 05/10/2022 Comprehensive Visit Orthopedic Surgery Warner Graves M.D. [address] [place] [phone] 05/22/2022 Appointment Laboratory Medicine Angélica Granger P.A.-C. [address] [place] [phone] 06/05/2022 Appointment Laboratory Medicine Angélica Granger P.A.-C. [address] [place] [phone] 06/19/2022 Appointment Laboratory Medicine Angélica Granger P.A.-C. [address] [place] [phone] 07/03/2022 Appointment Laboratory Medicine Angélica Granger P.A.-C. [address] [place] [phone] 07/17/2022 Appointment Laboratory Medicine Angélica Granger P.A.-C. [address] [place] [phone] 07/31/2022 Appointment Laboratory Medicine Angélica Granger P.A.-C. [address] [place] [phone] 08/14/2022 Appointment Laboratory Medicine Angélica Granger P.A.-C. [address] [place] [phone] 08/28/2022 Appointment Laboratory Medicine Angélica Granger P.A.-C. [address] [place] [phone] documented as of this encounter Visit Diagnoses Not on filedocumented in this encounter Additional Health Concerns Infection Onset Date Last Indicated Resolved Time COVID19 Pending 02/04/2022 02/04/2022 02/05/2022 2:30 PM CDT Assessment Noted Time PHQ-9 Depression Total Score: 4 11/28/2020 10:17 AM CD T documented as of this encounter Care Teams Ebd Teacher Relationship Specialty Start Date End Date Elsewhere, Pcp PCP - General Family Medicine 07/29/17 [facility] - Laboratory Medicine 04/12/20 [place] [phone] documented as of this encounter
--- OUTSIDE RECORDS SUMMARY | 2022-04-13 11:55 | XMS_ITS | Encounter Summary ---
:1955 Author Organization [facility] Address [address] [place] [address] Care Team Providers Name Role Phone Elsewhere, Pcp Primary Care Provider Unavailable Encounter Details Date Type Department Care Team Description 01/18/2022 Orders Only Curt aguirre [facility] Trung Plasencia for Transplantation and Mayuri Wyatt. Clinical Regeneration in [address] [place] [address] [place] [phone] [place] [address] [phone] Social History Tobacco Use Types Packs/Day Years [...] or relatives? How often do you attend yarsani or More than 4 times per year 12/15/2021 rastafari services? 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 [address] [place] [address] [phone] 04/25/2022 Office Visit Otorhinolaryngology Dex Matta APRN, C.N.P., M.S.N. [address] [place] [address] [phone] 05/08/2022 Appointment Laboratory Medicine Angélica Granger, P.A.-C. [address] [place] [address] [phone] 05/08/2022 Clinical Admitting/Central Communication Scheduling 05/10/2022 Appointment Radiology Jeremie Rose M.D. [address] [place] [phone] 05/10/2022 Comprehensive Visit Orthopedic Surgery Warner Graves M.D. [address] [place] [phone] 05/22/2022 Appointment Laboratory Medicine Angélica Granger P.A.-C. [address] [place] [phone] 06/05/2022 Appointment Laboratory Angélica Royal P.A.-C. [address] [place] [phone] 06/19/2022 Appointment Laboratory Angélica Royal P.A.-C. [address] [place] [phone] 07/03/2022 Appointment Laboratory Angélica Royal P.A.-C. [address] [place] [phone] 07/17/2022 Appointment Laboratory Angélica Royal P.A.-C. [address] [place] [phone] 07/31/2022 Appointment Laboratory Angélica Royal P.A.-C. [address] [place] [phone] 08/14/2022 Appointment Laboratory Angélica Royal P.A.-C. [address] [place] [phone] 08/28/2022 Appointment Laboratory Angélica Royal P.A.-C. [address] [place] [phone] documented as of this encounter Visit Diagnoses Not on filedocumented in this encounter Additional Health Concerns Assessment Noted Time PHQ-9 Depression Total Score: 4 11/28/2020 10:17 AM CD T documented as of this encounter Care Teams Cnc Mill Set Up Operator Relationship Specialty Start Date End Date Elsewhere, Pcp PCP - General Family Medicine 07/29/17 [facility] - Laboratory Medicine 04/12/20 [place] [phone] documented as of this encounter
--- OUTSIDE RECORDS SUMMARY | 2022-04-13 11:55 | XMS_ITS | Encounter Summary ---
:1955 Author Organization [facility] Address [address] [place] [address] Care Team Providers Name Role Phone Elsewhere, Pcp Primary Care Provider Unavailable Reason for Visit Reason Comments Immunizations Encounter Details Date Type Department Care Team Description 01/21/2022 Immunization Section of [place], Nik Minor Immun odeficiency (HCC); Samuel M.D., Ph.D. Transpl ant Liver (HCC) Occupational Medicine in [facility] jose [address] [place] [address] Social History Tobacco Use Types Packs/Day Years [...] or relatives? How often do you attend episcopal or More than 4 times per year 12/15/2021 restorationist services? 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 [address] [place] [phone] 05/08/2022 Appointment Laboratory Medicine Angélica Granger P.A.-CDemetrius [address] [place] [phone] 05/08/2022 Clinical Admitting/Central Communication Scheduling 05/10/2022 Appointment Radiology Jeremie Rose M.D. [address] [place] [phone] 05/10/2022 Comprehensive Visit Orthopedic Surgery Warner Graves M.D. [address] [place] [phone] 05/22/2022 Appointment Laboratory Medicine Angélica Granger P.A.-Janette [address] [place] [phone] 06/05/2022 Appointment Laboratory Medicine Angélica Granger P.A.-C. [address] [place] [phone] 06/19/2022 Appointment Laboratory Medicine Angélica Granger P.A.-C. [address] [place] [phone] 07/03/2022 Appointment Laboratory Medicine Angélica Granger P.A.-C. [address] [place] [phone] 07/17/2022 Appointment Laboratory Medicine Angélica Granger P.A.-C. [address] [place] [phone] 07/31/2022 Appointment Laboratory Medicine Angélica Granger P.A.-C. [address] [place] [phone] 08/14/2022 Appointment Laboratory Medicine Angélica Granger P.A.-C. [address] [place] [address] [phone] 08/28/2022 Appointment Laboratory Medicine Angélica Granger P.A.-C. [address] [place] [phone] documented as of this encounter Visit Diagnoses Diagnosis Immunodeficiency (HCC) Transplant Liver (HCC) documented in this encounter Additional Health Concerns Assessment Noted Time PHQ-9 Depression Total Score: 4 11/28/2020 10:17 AM CD T documented as of this encounter Care Teams Plastics Worker Relationship Specialty Start Date End Date Elsewhere, Pcp PCP - General Family Medicine 07/29/17 [facility] - Laboratory Medicine 10/21/20 [place] [phone] documented as of this encounter
--- OUTSIDE RECORDS SUMMARY | 2022-04-13 11:55 | XMS_ITS | Encounter Summary ---
:1955 Author Organization [facility] Address [address] [place] [address] Care Team Providers Name Role Phone Elsewhere, Pcp Primary Care Provider Unavailable Encounter Details Date Type Department Care Team Description 01/10/2022 Clinical Communication Department of Margie Cartagena, Dermatology in [place], [place] [address] [facility] [address] [place] [phone] Social History Tobacco Use Types Packs/Day Years [...] place to sleep or slept in a penitentiary (including now)? Education Answer Date Recorded What is the highest level of school Associate degree: jennifer reyes, 12/14/2021 you have completed or the highest technical, or vocational p beatriz degree you have received? 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 - 01/10/2022 1:04 PM CDT Sent pt a portal message relaying that he can shower at this time and packing will fall out or dissolve with cleaning. He should continue vinegar soaks until healed. Telephone Encounter - Margie Cartagena R.N. - 01/10/2022 11:12 AM CDT Information Discussed Patient calls after having Mohs surgery on 01/04/22 with questions about dissolvable packing in his ear & when it's okay to shower? States he has not been showering yet, but has been doing vinegar soaks as directed. PLAN Disposition/Recommendation: reaching out for direction from surgical nursing team. In basket messagesent. Information/Education: patient/caller able to teach back Caller agreeable to plan of care: yes The following references were used: nursing clinical judgement and previous plan of care date: 01/04/22 documented in this encounter Plan of Treatment Upcoming Encounters Date Type Specialty Care Team Description 04/24/2022 Appointment Laboratory Medicine Angélica Granger P.A.-C. [address] [place] [address] [phone] 04/25/2022 Office Visit Otorhinolaryngology Dex Matta APRN, C.N.P., M.S.N. [address] [place] [phone] 05/08/2022 Appointment Laboratory Medicine Angélica Granger P.A.-C. [address] [place] [phone] 05/08/2022 Clinical Admitting/Central Communication Scheduling 05/10/2022 Appointment Radiology Jeremie Rose M.D. [address] [place] [phone] 05/10/2022 Comprehensive Visit Orthopedic Surgery Warner Graves M.D. [address] [place] [phone] 05/22/2022 Appointment Laboratory Medicine Angélica Granger P.A.-C. [address] [place] [address] [phone] 06/05/2022 Appointment Laboratory Medicine Angélica Granger P.A.-C. [address] [place] [phone] 06/19/2022 Appointment Laboratory Medicine Angélica Granger P.A.-C. [address] [place] [phone] 07/03/2022 Appointment Laboratory Medicine Angélica Granger P.A.-C. [address] [place] [phone] 07/17/2022 Appointment Laboratory Medicine Angélica Granger P.A.-C. [address] [place] [phone] 07/31/2022 Appointment Laboratory Medicine Angélica Granger P.A.-C. [address] [place] [phone] 08/14/2022 Appointment Laboratory Medicine Angélica Granger P.A.-C. [address] [place] [phone] 08/28/2022 Appointment Laboratory Angélica Royal P.A.-C. [address] [place] [phone] documented as of this encounter Visit Diagnoses Not on filedocumented in this encounter Additional Health Concerns Assessment Noted Time PHQ-9 Depression Total Score: 4 11/28/2020 10:17 AM CD T documented as of this encounter Care Teams Barratte Operator Relationship Specialty Start Date End Date Elsewhere, Pcp PCP - General Family Medicine 07/29/17 [facility] - Laboratory Medicine 04/12/[address] [address] documented as of this encounter
--- OUTSIDE RECORDS SUMMARY | 2022-04-13 11:55 | XMS_ITS | Encounter Summary ---
:1955 Author Organization [facility] Address [address] [place] [address] Care Team Providers Name Role Phone Elsewhere, Pcp Primary Care Provider Unavailable Reason for Referral Medication Prior Authorization - Authorized Specialty Diagnoses / Procedures Referred By Contact Refer red To Contact Trung Plasencia P.A. -C., M.S. [address] [place] [address] Referral ID Status Reason Start Date Expiration Date Visits V isits Requested Authorized [id number] Authorized 10/21/2021 07/22/2022 1 1 Medication Prior Authorization - Authorized Specialty Diagnoses / Procedures Referred By Contact Refer red To Contact Trung Plasencia P.A. -C., M.S. [address] [place], [place] [phone] Referral ID Status Reason Start Date Expiration Date Visits V isits Requested Authorized [id number] Authorized 10/21/2021 07/22/2022 1 1 Encounter Details Date Type Department Care Team Description 01/17/2022 Orders Only Curt Anju [facility] Trung Plasencia, for Transplantation and P.A.-C., M.S. Clinical Regeneration in [address] [place] [address] [place] [phone] [place] [address] [phone] Social History Tobacco Use Types Packs/Day Years [...] or relatives? How often do you attend hinduism or More than 4 times per year 12/15/2021 hindu services? 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 [address] [place] [phone] 04/25/2022 Office Visit Otorhinolaryngology Dex Matta APRN CDemetriusNDemetriusPDemetrius, M.S.N. [address] [place] [phone] 05/08/2022 Appointment Laboratory Medicine Angélica Granger P.A.-C. [address] [place] [phone] 05/08/2022 Clinical Admitting/Central Communication Scheduling 05/10/2022 Appointment Radiology Jeremie Rose M.D. [address] [place] [phone] 05/10/2022 Comprehensive Visit Orthopedic Surgery Warner Graves M.D. [address] [place] [phone] 05/22/2022 Appointment Laboratory Medicine Angélica Granger P.A.-C. [address] [place] [phone] 06/05/2022 Appointment Laboratory Medicine Angélica Granger P.A.-C. [address] [place] [phone] 06/19/2022 Appointment Laboratory Medicine Angélica Granger P.A.-C. [address] [place] [phone] 07/03/2022 Appointment Laboratory Medicine Angélica Granger P.A.-C. [address] [place] [phone] 07/17/2022 Appointment Laboratory Medicine Angélica Granger P.A.-C. [address] [place] [phone] 07/31/2022 Appointment Laboratory Medicine Angélica Granger P.A.-C. [address] [place] [phone] 08/14/2022 Appointment Laboratory Medicine Angélica Granger P.A.-C. [address] [place] [phone] 08/28/2022 Appointment Laboratory Medicine Angélica Granger P.A.-C. [address] [place] [phone] documented as of this encounter Visit Diagnoses Not on filedocumented in this encounter Additional Health Concerns Assessment Noted Time PHQ-9 Depression Total Score: 4 11/28/2020 10:17 AM CD T documented as of this encounter Care Teams Jackspooler Relationship Specialty Start Date End Date Elsewhere, Pcp PCP - General Family Medicine 07/29/17 [facility] - Laboratory Medicine 04/12/[address] [address] documented as of this encounter
--- OUTSIDE RECORDS SUMMARY | 2022-04-13 11:55 | XMS_ITS | Encounter Summary ---
:1955 Author Organization [facility] Address [address] [place] [address] Care Team Providers Name Role Phone Elsewhere, Pcp Primary Care Provider Unavailable Reason for Visit Reason Comments Labs Only 01/09/22 Encounter Details Date Type Department Care Team Description 01/11/2022 Clinical Anastasia Ingram Labs Only Communication Center for Jolly RSteve, (01/09/22) Transplantation and C.[facility].T.[facility]. Clinical Regeneration [phone] in [facility]) [place] [address] [place] [address] Social History Tobacco Use Types Packs/Day Years [...] or relatives? How often do you attend bahai or More than 4 times per year 12/15/2021 lutheran services? Do you belong to any clubs or No 12/15/2021 organizations such as bahai groups, unions, fraternal or athletic groups, or [...] or the highest technical, or vocational p [employer] degree you have received? 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 Bruce [...] after several undetected CMV levels on 09/15/21. He underwent sinus surgery on 07/26/21 with ENT team for chronic rhinosinusitis and post nasal drip with recurrent aspiration. He follows with Padmini Barry CNP in Nephrology for stage 5 CKD, on hemodialysis. 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. Valcyte stopped 12/10 per Trung Plasencia. Valcyte restarted 12/27 for CMV reactivation. On 12/11 Bruce started Voriconazole for pulmonary aspergillosis and Bactrim for Chronic rhinosinusitis Alk phos has been elevated the last few weeks. Recommendations? Current Medications & Recent Dose Changes: Tacrolimus 0.5 mg daily (decreased from 0.5 mg bid 12/27/21) Mycophenolate 500 mg BID (Decreased to 250 mg BID 10/11) Prednisone 5 mg daily Labs: Recent Labs 01/09/22 0807 01/02/22 0802 12/26/21 0807 12/19/21 0835 12/03/21 0756 11/28/21 0819 TACROLIMUS 3.0 L 3.1 L 6.0 7.8 1.6 L 2.0 L Recent Labs 01/09/22 0807 01/02/22 0802 12/26/21 0807 12/19/21 0835 12/03/21 0756 12/03/21 0755 10/17/21 0838 10/15/21 0808 10/15/21 0439 10/14/21 0447 10/13/21 0519 10/12/21 1612 10/12/21 1451 10/12/21 1451 HGB 11.3 L 10.8 L 10.6 L < > -- 9.8 L < > 8.2 L -- 7.9 L 8.0 L -- -- 8.8 L HCT 35.8 L 34.4 L 34.1 L < > -- 31.1 L < > 24.9 L -- 24.1 L 24.7 L 25.0 L -- 27.0 L WBC 4.3 3.9 3.8 < > -- 3.9 < > 3.9 -- 4.4 4.4 -- -- 7.2 NEUTROPHILS -- -- -- -- -- See manual differential -- 2.81 -- 3.21 SeeComment -- -- 6.42 PLT 258 256 253 < > -- 292 < > 181 -- 178 166 -- -- 182 NA 136 137 135 < > -- 138 < > 130 L -- 127 L 128 L 124 L < > 124 L KPLASMA 4.3 4.4 4.0 < > -- 3.9 < > -- -- -- -- -- -- 4.7 KBLOOD -- -- -- -- -- -- -- -- -- -- -- 4.7 -- -- KSERUM -- -- -- -- -- -- -- 3.8 -- 4.0 3.8 -- -- -- MG -- -- -- -- -- 2.3 -- -- 2.3 -- -- -- -- -- GLUCOSE CANCELED 120 H CANCELED 106 H CANCELED 109 H < > -- 110 < > 131 -- 228 H 216 H -- < > 435 Crit H HGBA1C -- -- -- -- 5.6 -- -- -- -- -- 7.4 H -- -- -- BUN 30 H 28 H 34 H < > -- 45 H < > 63 H -- 58 H 45 H -- < > 35 H CREATININE 3.45 H 3.85 H 3.95 H < > -- 4.03 H < > 4.41 H -- 4.13 H 3.39 H -- < > 2.48 H ALKPHOS 151 H 146 H 128 < > -- 107 < > -- -- -- 86 -- -- 101 AST 27 24 27 < > -- 21 < > -- -- -- 14 -- -- 17 ALT 27 20 21 < > -- 17 < > -- -- -- 17 -- -- 21 BILITOT 0.3 0.3 0.3 < > -- 0.3 < > -- -- -- 0.2 -- -- 0.5 BILIDIR -- -- -- -- -- <0.2 -- -- -- -- -- -- -- <0.2 PT -- -- -- -- 11.1 -- -- -- -- -- -- -- -- -- INR -- -- -- -- 1.0 -- -- -- -- -- -- -- -- -- ALBUMIN 4.1 4.0 4.2 < > -- 4.2 < > 3.7 -- 3.5 3.4 L -- -- 3.5 < > = values in this interval not displayed. Serologies: Recent Labs 01/09/22 0807 01/02/22 0802 12/26/21 0807 12/19/21 0835 CMVQUANT 91 A 65 A 313 A <35 A No results for input(s): EBVDNADETQUP, EBVDNADETQUA, EBVQU, EBVCOPIES, EBVPCRQUANT in the last 2190 hours. No lab exists for component: SEBV Recent Labs 12/05/21 0722 HEPBANTSCRN Negative HEPBSABSCRN Positive HEPBCABSCRN Negative Immunosuppression Goal Range: 1.5-4 Current Lab Frequency: weekly Please advise on any changes or recommendations. Anastasia Rasheed R.N., Dilan *All labs are now found in [facility] - Lab - Flowsheets. For further review of labs, please review there or under Synopsis* documented in this encounter Plan of Treatment Upcoming Encounters Date Type Specialty Care Team Description 04/24/2022 Appointment Laboratory Medicine Angélica Granger P.A.-C. [address] [place] [phone] 04/25/2022 Office Visit Otorhinolaryngology Dex Matta APRN CDemetriusNDemetriusP., M.S.N. [address] [place] [phone] 05/08/2022 Appointment Laboratory Medicine Angélica Granger P.A.-C. [address] [place] [phone] 05/08/2022 Clinical Admitting/Central Communication Scheduling 05/10/2022 Appointment Radiology Jeremie Rose M.D. [address] [place] [phone] 05/10/2022 Comprehensive Visit Orthopedic Surgery Warner Graves M.D. [address] [place] [phone] 05/22/2022 Appointment Laboratory Medicine Angélica Granger P.A.-C. [address] [place] [phone] 06/05/2022 Appointment Laboratory Medicine Angélica Granger P.A.-C. [address] [place] [phone] 06/19/2022 Appointment Laboratory Medicine Angélica Granger P.A.-C. [address] [place] [phone] 07/03/2022 Appointment Laboratory Medicine Angélica Granger P.A.-C. [address] [place] [phone] 07/17/2022 Appointment Laboratory Medicine Angélica Granger P.A.-C. [address] [place] [phone] 07/31/2022 Appointment Laboratory Medicine Angélica Granger P.A.-C. [address] [place] [phone] 08/14/2022 Appointment Laboratory Medicine Angélica Granger P.A.-C. [address] [place] [phone] 08/28/2022 Appointment Laboratory Medicine Angélica Granger P.A.-C. [address] [place] [phone] documented as of this encounter Visit Diagnoses Not on filedocumented in this encounter Additional Health Concerns Assessment Noted Time PHQ-9 Depression Total Score: 4 11/28/2020 10:17 AM CD T documented as of this encounter Care Teams Tile Designer Relationship Specialty Start Date End Date Elsewhere, Pcp PCP - General Family Medicine 07/29/17 [facility] - Laboratory Medicine 04/12/[address] [address] documented as of this encounter
--- OUTSIDE RECORDS SUMMARY | 2022-04-13 11:55 | XMS_ITS | Encounter Summary ---
:[address] [facility] Address [address] [place] [address] Care Team Providers Name Role Phone Elsewhere, Pcp Primary Care Provider Unavailable Encounter Details Date Type Department Care Team Description 01/11/2022 Orders Only Department of Noni Bautista Chondritis Pinna Right Dermatology in Sada Azevedo, M.S. (Primary Dx) [place], [place] [address] [place] [address] [address] [place] [phone] Social History Tobacco Use Types Packs/Day Years [...] More than 4 times per year 12/15/2021 sabianist services? 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 [address] [place] [phone] 04/25/2022 Office Visit Otorhinolaryngology Dex Matta, RAMONA, C.N.P., M.S.N. [address] [place] [phone] 05/08/2022 Appointment Laboratory Medicine Angélica Granger, P.A.-C. [address] [place] [phone] 05/08/2022 Clinical Admitting/Central Communication Scheduling 05/10/2022 Appointment Radiology Jeremie Rose M.D. [address] [place] [phone] 05/10/2022 Comprehensive Visit Orthopedic Surgery Warner Graves M.D. [address] [place] [phone] 05/22/2022 Appointment Laboratory Medicine Angélica Granger P.A.-C. [address] [place] [phone] 06/05/2022 Appointment Laboratory Medicine Angélica Granger P.A.-C. [address] [place] [phone] 06/19/2022 Appointment Laboratory Angélica Royal P.A.-C. [address] [place] [phone] 07/03/2022 Appointment Laboratory Angélica Royal P.A.-C. [address] [place] [phone] 07/17/2022 Appointment Laboratory Angélica Royal P.A.-C. [address] [place] [phone] 07/31/2022 Appointment Laboratory Medicine Angélica Granger P.A.-C. [address] [place] [phone] 08/14/2022 Appointment Laboratory Angélica Royal P.A.-C. [address] [place] [phone] 08/28/2022 Appointment Laboratory Medicine Angélica Granger P.A.-C. [address] [place] [phone] documented as of this encounter Visit Diagnoses Diagnosis Chondritis Pinna Right - Primary documented in this encounter Additional Health Concerns Assessment Noted Time PHQ-9 Depression Total Score: 4 11/28/2020 10:17 AM CD T documented as of this encounter Care Teams Forest Technology Professor Relationship Specialty Start Date End Date Elsewhere, Pcp PCP - General Family Medicine 07/29/17 [facility] - Laboratory Medicine 04/12/20 [place] [phone] documented as of this encounter
--- OUTSIDE RECORDS SUMMARY | 2022-04-13 11:55 | XMS_ITS | Encounter Summary ---
:1955 Author Organization [facility] Address [address] [place] [address] Care Team Providers Name Role Phone Elsewhere, Pcp Primary Care Provider Unavailable Reason for Visit Reason Comments Labs Only Encounter Details Date Type Department Care Team Description 01/18/2022 Clinical Communication Irena Game[facility] Labs Only Center for R, R.N. 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 - 01/18/2022 8:07 AM CDT Please review labs below. Bruce [...] Prednisone 5 mg daily Labs: Recent Labs 01/16/22 0809 01/09/22 0807 01/02/22 0802 12/26/21 0807 12/19/21 0835 12/03/21 0756 TACROLIMUS 2.2 L 3.0 L 3.1 L 6.0 7.8 1.6 L Recent Labs 01/16/22 0809 01/09/22 0807 01/02/22 0802 12/19/21 0835 12/03/21 0756 12/03/21 0755 HGB 11.9 L 11.3 L 10.8 L < > -- 9.8 L HCT 38.3 35.8 L 34.4 L < > -- 31.1 L WBC 5.3 4.3 3.9 < > -- 3.9 NEUTROPHILS -- -- -- -- -- See manual differential PLT 231 258 256 < > -- 292 NA 136 136 137 < > -- 138 KPLASMA 4.0 4.3 4.4 < > -- 3.9 MG -- -- -- -- -- 2.3 GLUCOSE CANCELED 120 H CANCELED 120 H CANCELED 106 H < > -- 110 HGBA1C -- -- -- -- 5.6 -- BUN 35 H 30 H 28 H < > -- 45 H CREATININE 3.39 H 3.45 H 3.85 H < > -- 4.03 H ALKPHOS 178 H 151 H 146 H < > -- 107 AST 25 27 24 < > -- 21 ALT 32 27 20 < > -- 17 BILITOT 0.3 0.3 0.3 < > -- 0.3 BILIDIR -- -- -- -- -- <0.2 PT -- -- -- -- 11.1 -- INR -- -- -- -- 1.0 -- ALBUMIN 4.1 4.1 4.0 < > -- 4.2 < > = [...] R.N. *All labs are now found in [facility] - Lab - Flowsheets. For further review of labs, please review there or under Synopsis* documented in this encounter Plan of Treatment Upcoming Encounters Date Type Specialty Care Team Description 04/24/2022 Appointment Laboratory Medicine Angélica Granger P.A.-C. [address] [place] [phone] 04/25/2022 Office Visit Otorhinolaryngology Dex Matta, RAMONA, C.N.P., M.S.N. [address] [place] [phone] 05/08/2022 Appointment Laboratory Medicine Angélica Granger P.A.-C. [address] [place] [phone] 05/08/2022 Clinical Admitting/Central Communication Scheduling 05/10/2022 Appointment Radiology Jeremie Rose M.D. [address] [place] [phone] 05/10/2022 Comprehensive Visit Orthopedic Surgery Warner Graves M.D. [address] [place] [phone] 05/22/2022 Appointment Laboratory Medicine Angélica Granger P.A.-C. [address] [place] [phone] 06/05/2022 Appointment Laboratory Medicine Angélica Granger P.A.-C. [address] [place] [phone] 06/19/2022 Appointment Laboratory Medicine Angélica Granger P.A.-C. [address] [place] [phone] 07/03/2022 Appointment Laboratory Medicine Angélica Granger P.A.-C. [address] [place] [phone] 07/17/2022 Appointment Laboratory Medicine Angélica Granger P.A.-C. [address] [place] [phone] 07/31/2022 Appointment Laboratory Medicine Angélica Granger P.A.-C. [address] [place] [phone] 08/14/2022 Appointment Laboratory Medicine Angélica Granger P.A.-C. [address] [place] [phone] 08/28/2022 Appointment Laboratory Medicine Angélica Granger P.A.-C. [address] [place] [phone] documented as of this encounter Visit Diagnoses Not on filedocumented in this encounter Additional Health Concerns Assessment Noted Time PHQ-9 Depression Total Score: 4 11/28/2020 10:17 AM CD T documented as of this encounter Care Teams Project Engineer Relationship Specialty Start Date End Date Elsewhere, Pcp PCP - General Family Medicine 07/29/17 [facility] - Laboratory Medicine 04/12/[address] [phone] documented as of this encounter
--- OUTSIDE RECORDS SUMMARY | 2022-04-13 11:55 | XMS_ITS | Encounter Summary ---
:1955 Author Organization [facility] Address [address] [place] [address] Care Team Providers Name Role Phone Elsewhere, Pcp Primary Care Provider Unavailable Encounter Details Date Type Department Care Team Description 01/21/2022 Lab Department of Laboratory Trung Plasencia Bronchiectasis (HCC) Medicine and Pathology, [facility] [address] [place] [address] [place] [phone] [place] [address] [phone] Social History Tobacco Use Types Packs/Day Years [...] place to sleep or slept in a prison (including now)? Education Answer Date Recorded What is the highest level of school Associate degree: jennifer reyes, 12/14/2021 you have completed or the highest technical, or vocational p beatriz degree you have received? Sex Assigned at Date Recorded Male 05/16/2020 4:27 PM [employer]F [employer] FROID documented as of this encounter Plan of Treatment Upcoming Encounters Date Type Specialty Care Team Description 04/24/2022 Appointment Laboratory Medicine Angélica Granger, P.A.-C. [address] [place] [phone] 04/25/2022 Office Visit Otorhinolaryngology Dex Matta, RAMONA, C.N.P., M.S.N. [address] [place] [phone] 05/08/2022 Appointment Laboratory Medicine Angélica Granger, P.A.-C. [address] [place] [phone] 05/08/2022 Clinical Admitting/Central Communication Scheduling 05/10/2022 Appointment Radiology Jeremie Rose M.D. [address] [place] [phone] 05/10/2022 Comprehensive Visit Orthopedic Surgery Warner Graves M.D. [address] [place] [phone] 05/22/2022 Appointment Laboratory Medicine Angélica Granger P.A.-C. [address] [place] [phone] 06/05/2022 Appointment Laboratory Medicine Angélica Granger P.A.-C. [address] [place] [phone] 06/19/2022 Appointment Laboratory Medicine Angélica Granger P.A.-C. [address] [place] [phone] 07/03/2022 Appointment Laboratory Medicine Angélica Granger P.A.-C. [address] [place] [phone] 07/17/2022 Appointment Laboratory Medicine Angélica Granger P.A.-C. [address] [place] [phone] 07/31/2022 Appointment Laboratory Medicine Angélica Granger P.A.-C. [address] [place] [phone] 08/14/2022 Appointment Laboratory Medicine Angélica Granger P.A.-C. [address] [place] [phone] 08/28/2022 Appointment Laboratory Medicine Angélica Granger P.A.-C. [address] [place] [phone] documented as of this encounter Procedures Procedure Name Priority Date/Time Associated Diagnosis Comme nts IN REF SUSCEPT Routine 01/21/2022 8:58 Results fo r this MACROBROTH EA DRUG AM CDT procedure are in the results section. IN REF SUSCEPT Routine 01/21/2022 8:58 Results fo r this MACROBROTH EA DRUG AM CDT procedure are in the results section. IN REF SUSCEPT Routine 01/21/2022 8:58 Results fo r this MACROBROTH EA DRUG AM CDT procedure are in the results section. IN REF SUSCEPT Routine 01/21/2022 8:58 Results fo r this MACROBROTH EA DRUG AM CDT procedure are in the results section. BACTERIAL CULTURE, Routine 01/21/2022 8:58 Bronchiectasis (HCC ) Results for this AEROBIC + SUSC, RESP AM CDT procedu re are in the results section. MYCOBACTERIAL Routine 01/21/2022 8:58 Bronchiectasis (HCC) Res ults for this CULTURE, V AM CDT procedure are i n the results section. FUNGAL SMEAR Routine 01/21/2022 8:58 Bronchiectasis (HCC) Resu lts for this AM CDT procedure are i n the results section. ACID FAST SMEAR FOR Routine 01/21/2022 8:58 Bronchiectasis (HC C) Results for this MYCOBACTERIUM AM CDT procedure are in the results section. GRAM STAIN Routine 01/21/2022 8:58 Bronchiectasis (HCC) Resu lts for this AM CDT procedure are i n the results section. FUNGAL CULTURE, Routine 01/21/2022 8:58 Bronchiectasis (HCC) R esults for this ROUTINE AM CDT procedure are i n the results section. documented in this encounter Results Misc [facility] Ant Test (01/21/2022 [...] M.S. LAB MISC ORDERABLES Performing Organization Address [facility] Phon e Number [facility] [address] [place], [place] [phone] [place] Department Of Pathology Fungus [place] [address] Dept of Path-Fungus Lab [facility] MML Referral Test 1 (01/21/2022 8:58 AM CDT) athologist Signature Test Name Caspofungin 02/07/2022 [facility] 8:24 AM CDT Result See Below 02/13/2022 [facility] 2:31 PM CDT Comment: Antifungal Susceptibility Testing Source: Sputum Species ID Provided: Fusarium sp. Result Name ?Result ?Flag ? Units ? Caspofungin (ALESSANDRA) ? >8 ?mcg/mL ? Interpretation ? No Established Breakpoints Test Performed By: [address] Department of Pathology Fungus Lab [place], [place] ??[phone] Specimen Anatomical Collection Method Collection Time Receive d Time (Source) Location / / Volume Laterality Varies 01/21/2022 8:58 AM 2 8:24 CDT AM CDT Trung Plasencia P.A.-C., M.S. LAB MISC ORDERABLES Performing Organization Address [facility] Phon e Number MISC REFERRAL LAB MIS Voriconazole - Sent Out Lab (01/21/2022 8:58 AM CDT) Component Value Ref Test Analysis Performed At [facility] gist Range Method Time Signature Source Sputum, [...] MICROBIOLOGY - GENERAL ORDERABLES Performing Organization Address [facility] Phon e Number [address] [phone] [place] Department Of [place] [address] Dept of Path-Fungus Lab Posaconazole - Sent Out Lab (01/21/2022 8:58 AM CDT) Component Value Ref Test Analysis Performed At [facility] Range Method Time Signature Source Sputum, [...] MICROBIOLOGY - GENERAL ORDERABLES Performing Organization Address City/[facility] Phon e Number [address] [phone] [place] Department Of [place] [address] Dept of Path-Fungus Lab Mycobacterial Culture (01/21/2022 8:58 AM CDT) Bill.Forward Method Time Signature Mycobacterial No growth 03/04/2022 DTL Culture after 42 1:01 PM CDT days of incubation . Specimen Anatomical Collection Method Collection Time Receive d Time (Source) Location / / Volume Laterality Sputum (Sputum) 01/21/2022 8:58 AM 2021 9:57 CDT AM CDT Comment: Specimen Source Site: Sputum Trung Plasencia P.A.-C., M.S. LAB MICROBIOLOGY - GENERAL ORDERABLES Performing Organization Address City/[facility] Phon e Number [facility] - [address] Acid Fast Smear For Mycobacterium (01/21/2022 8:58 AM CDT) [facility] Method Time Signature Acid Fast Smear Negative. 01/21/2022 DTL For Mycobacterium 10:33 PM CDT Specimen Anatomical Collection Method Collection Time Receive d Time (Source) Location / / Volume Laterality Sputum (Sputum) 01/21/2022 8:58 AM 2021 9:57 CDT AM CDT Comment: Specimen Source Site: Sputum Trung Plasencia P.A.-C., M.S. LAB MICROBIOLOGY - GENERAL ORDERABLES Performing Organization Address City/[facility] Phon e Number [facility] - [phone] [place] [address] (ABNORMAL) Fungal Culture, Routine (01/21/2022 8:58 AM CDT) Bill.Forward Method Time Signature Fungal Mixed Fungal 02/14/2022 DTL Culture, Alfreda (A) 8:29 AM CDT Routine Fungal FUSARIUM sp 02/14/2022 DTL Culture, Few 8:29 AM CDT Routine (A) Comment: Susceptibility testing is not indicated for all molds. Infectious Diseases consult is required to order mold susceptibility testing. Fungal Culture, Routine SAPROPHYTIC FUNGUS 022 8:29 AM CDT DTL Few (A) Comment: Not further identified. Susceptibility [...] MICROBIOLOGY - GENERAL ORDERABLES Performing Organization Address City/[facility]/ZIP Code Phon e Number [facility] - 200 [place], [place] [address] [place] [address] [address] Fungal Smear (01/21/2022 8:58 AM CDT) P athologist Signature Fungal Smear Negative. 01/21/2022 DTL 1:38 PM CDT Specimen Anatomical Collection Method Collection Time Receive d Time (Source) Location / / Volume Laterality Sputum (Sputum) 01/21/2022 8:58 AM 2021 9:57 CDT AM CDT Comment: Specimen Source Site: Sputum Trung Plasencia P.A.-C., M.S. LAB MICROBIOLOGY - GENERAL ORDERABLES Performing Organization Address City/[facility] Code Phon e Number [facility] - 200 [place], [place] [address] [place] [address] [address] (ABNORMAL) Bacterial Culture, Aerobic + Susc, Resp [...] Piperacillin + Tazobactam SUSCEPTIBILITY, <= 8/4 mcg/mL: DVAID (MCG/ML) Susceptible Serratia marcescens Ciprofloxacin SUSCEPTIBILITY, 2 [...] MICROBIOLOGY - GENERAL ORDERABLES Performing Organization Address City/[facility] Phon e Number [facility] - [phone] [place] [address] Gram Stain (01/21/2022 8:58 AM CDT) [facility] gist Method Time Signature Gram Stain Upper respiratory/oral microbiota 01/21 DTL White blood cells, Many. 10:58 AM CDT Epithelial cells, Few. Specimen Anatomical Collection Method Collection Time Receive d Time (Source) Location / / Volume Laterality Sputum (Sputum) 01/21/2022 8:58 AM 2021 9:57 CDT AM CDT Comment: Specimen Source Site: Sputum Trung Plasencia P.A.-C., M.S. LAB MICROBIOLOGY - GENERAL ORDERABLES Performing Organization Address [facility] Phon e Number [phone] [place] [address] documented in this encounter Visit Diagnoses Diagnosis Bronchiectasis (HCC) documented in this encounter Additional Health Concerns Assessment Noted Time PHQ-9 Depression Total Score: 4 11/28/2020 10:17 AM CD T documented as of this encounter Care Teams Shop Hand Relationship Specialty Start Date End Date Elsewhere, Pcp PCP - General Family Medicine 07/29/17 [facility] - Laboratory Medicine 04/12/20 [place] [phone] documented as of this encounter
--- OUTSIDE RECORDS SUMMARY | 2022-04-13 11:55 | XMS_ITS | Encounter Summary ---
:[address] [facility] [place] Address [address] [place] [address] Care Team Providers Name Role Phone Elsewhere, Pcp Primary Care Provider Unavailable Encounter Details Date Type Department Care Team Description 01/23/2022 Hospital Encounter Department of Angélica Granger ant Liver (HCC); Laboratory Medicine Leena PDemetriusADurgaC. Medication Therapy Tailer Off Not Anticoa gulant in [address] [phone] [place], [place] [phone] (Work) [phone] Social History Tobacco Use Types Packs/Day Years [...] or relatives? How often do you attend scientology or More than 4 times per year 12/15/2021 yazidism services? 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 Medication Therapy Group Home Not Anticoagulant tacrolimus (PROGRAF) 0.5 Take 1 capsule (0.5 90 capsule 3 03/15/2022 mg capsuleIndications: mg total) by mouth Transplant Liver (HCC), daily. Medication Therapy Tailer Off Not Anticoagulant torsemide (DEMADEX) 10 Take 3 tablets (30 60 tablet 1 10/1701/31/2022 mg tablet mg total) by mouth daily. documented as 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 [address] [place] [phone] 04/25/2022 Office Visit Otorhinolaryngology Dex Matta APRN, C.N.P., M.S.NDemetrius [address] [place] [phone] 05/08/2022 Appointment Laboratory Medicine Angélica Granger P.A.-C. [address] [place] [phone] 05/08/2022 Clinical Admitting/Central Communication Scheduling 05/10/2022 Appointment Radiology Jeremie Rose M.D. [address] [place] [phone] 05/10/2022 Comprehensive Visit Orthopedic Surgery Warner Graves M.D. [address] [place] [phone] 05/22/2022 Appointment Laboratory Medicine Angélica Granger P.A.-C. [address] [place] [phone] 06/05/2022 Appointment Laboratory Medicine Angélica Granger P.A.-C. [address] [place] [phone] 06/19/2022 Appointment Laboratory Medicine Angélica Granger P.A.-C. [address] [place] [phone] 07/03/2022 Appointment Laboratory Medicine Angélica Granger P.A.-C. [address] [place] [phone] 07/17/2022 Appointment Laboratory Medicine Angélica Granger P.A.-C. [address] [place] [phone] 07/31/2022 Appointment Laboratory Medicine Angélica Granger P.A.-C. [address] [place] [phone] 08/14/2022 Appointment Laboratory Medicine Angélica Granger P.A.-C. [address] [place] [phone] 08/28/2022 Appointment Laboratory Medicine Angélica Granger P.A.-C. [address] [place] [phone] documented as of this encounter Procedures Procedure Name Priority Date/Time Associated Diagnosis Comme nts CMV DNA DETECT/QUANT, Routine 01/23/2022 8:11 Transplant Liver Results for this P AM CDT (HCC) procedure are in Medication Therapy the resul ts Group Home Not section. Anticoagulant TACROLIMUS LEVEL, B Routine 01/23/2022 8:11 Transplant Liver R esults for this AM CDT (HCC) procedure are in Medication Therapy the resul ts Tailer Off Not section. Anticoagulant CBC WITHOUT Routine 01/23/2022 8:11 Transplant Liver Results for this DIFFERENTIAL, B AM CDT (HCC) procedure are in Medication Therapy the resul ts Group Home Not section. Anticoagulant GLUCOSE, FASTING, S/P Routine 01/23/2022 8:11 Transplant Liver Results for this AM CDT (HCC) procedure are in Medication Therapy the resul ts Group Home Not section. Anticoagulant COMPREHENSIVE Routine 01/23/2022 8:11 Transplant Liver Results for this METABOLIC PANEL, S/P AM CDT (HCC) procedure are in Medication Therapy the resul ts Group Home Not section. Anticoagulant documented in this encounter Results (ABNORMAL) Tacrolimus, B (01/23/2022 8:11 AM CDT) athologist Signature Tacrolimus, B 1.4 (L) 5.0-15.0 01/24/2022 SDSC (Trough) 10:49 AM CDT ng/mL Comment: [...] and its performa nce characteristics determined by [facility] in a manner consistent with CLIA requirements. This test has not been cleared or approved by the U.S. Mer d and Drug Administration. Specimen Anatomical Collection Method Collection Time Receive d Time (Source) Location / / Volume Laterality Blood (Blood, 01/23/2022 8:11 AM 01/25/20 22 7:57 Venous) CDT AM CDT Angélica Granger P.A.-C. LAB BLOOD NON ADD-ON Performing Organization Address [facility] Phon e Number [facility] [address] [place], [place] [address] [facility] [place] [address] Laboratory Medicine and Pathology [address] [place] [address] Dr. MURILLO (ABNORMAL) CMV DNA Detect / Quant, Plasma (01/23/2022 8:11 AM CDT) [facility] Method Time Signature CMV DNA <35 (A) Undetected 01/24/2022 [facility] Detect/Quant, IU/mL 1:06 PM CDT P Comment: Result in log [...] u sing the tika CMV test ([employer] with the tika 6800 System. Specimen Anatomical Collection Method Collection Time Receive d Time (Source) Location / / Volume Laterality Blood (Blood, 01/23/2022 8:11 AM 01/25/20 22 7:18 Venous) CDT AM CDT Angélica Granger P.A.-C. LAB MICROBIOLOGY - BLOOD ORD ERABLES Performing Organization Address City/[facility] Code Phon e Number [place] [phone] [place], [place] [address] [facility]PPORT CENTER [facility] [place] [address] Laboratory Medicine and Pathology [address] MURILLO Glucose, Fasting (01/23/2022 8:11 AM CDT) P athologist Signature Glucose, P 99 70 - 100 01/23/2022 [facility] mg/dL 8:32 AM CDT Last Intake 12 hr 01/23/2022 [facility] 8:11 AM CDT Specimen Anatomical Collection Method Collection Time Receive d Time (Source) Location / / Volume Laterality Blood (Blood, 01/23/2022 8:11 AM 01/24/20 8:13 Venous) CDT AM CDT Angélica Granger P.A.-C. LAB BLOOD NON ADD-ON Performing Organization Address City/State/ZIP Code Phon e Number [address] [address] [facility] [place] [address] [address] (ABNORMAL) Comprehensive Metabolic Panel (01/23/2022 8:11 AM CDT) Analysis Performed At Patho logist Time Signature Potassium, P 3.8 3.6 - 5.2 01/23/2022 [facility] mmol/L 8:36 AM CDT Sodium, P 135 135 - 145 01/23/2022 [facility] mmol/L 8:36 AM CDT Chloride, P 100 98 - 107 01/23/2022 [facility] mmol/L 8:36 AM CDT Bicarbonate, P 23 22 - 29 01/23/2022 [facility] mmol/L 8:36 AM CDT Anion Gap, P 12 7 - 15 01/23/2022 [facility] 8:36 AM CDT BUN (Blood Urea 33 (H) 8 - 24 01/23/2022 [facility] Nitrogen), P mg/dL 8:36 AM CDT Creatinine 3.47 (H) 0.74 - 01/23/2022 [facility] 1.35 mg/dL 8:36 AM CDT eGFR-Black/Afri 20 (L) >=60 01/23/2022 [facility] can Kyr[place]z mL/min/BSA 8:36 AM CDT Comment: ----ADDITIONAL INFORMATION---- Estimated GFR calculated using the 2009 CKD_EPI creatinine equation. eGFR Non-Black/ 17 (L) >=60 mL/min/BSA 01/23/2022 8:36 AM CDT [facility] [place]z Comment: ----ADDITIONAL INFORMATION---- Estimated GFR calculated using the 2009 CKD_EPI creatinine equation. Calcium, Total, P 9.1 8.8 - 10.2 mg/dL 01/23/2022 8:36 AM CDT [facility] Glucose, P CANCELED mg/dL 01/23/2022 8:13 AM CDT [facility] Comment: Duplicate test request. Result canceled by the ancillary. Protein, Total, P 6.7 6.3 - 7.9 g/dL 01/23/2022 8:36 A M CDT [facility] Albumin, P 4.2 3.5 - 5.0 g/dL 01/23/2022 8:36 AM CDT C NFL Aspartate Aminotransferase 26 8 - 48 U/L 01/23/2022 8 :36 AM CDT [facility] (AST), P Alkaline Phosphatase, P 171 (H) 40 - 129 U/L 01/23/2022 8: 36 AM CDT [facility] Alanine Aminotransferase 23 7 - 55 U/L 01/23/2022 8:3 6 AM CDT [facility] (ALT), P Bilirubin, Total, P 0.3 <=1.2 mg/dL 01/23/2022 8:36 AM CDT [facility] Specimen Anatomical Collection Method Collection Time Receive d Time (Source) Location / / Volume Laterality Blood (Blood, 01/23/2022 8:11 AM 01/24/20 8:13 Venous) CDT AM CDT Angélica Granger P.A.-C. LAB BLOOD ADD-ON Performing Organization Address City/State/ZIP Code Phon e Number [address] [address] [facility] [place] [address] System [address] (ABNORMAL) CBC without Differential (01/23/2022 8:11 AM CDT) [facility] gist Method Time Signature Hemoglobin 12.0 (L) 13.2 - 01/23/2022 [facility] 16.6 g/dL 8:34 AM CDT Hematocrit 37.0 (L) 38.3 - 01/23/2022 [facility] 48.6 % 8:34 AM CDT Erythrocytes 3.61 (L) 4.35 - 01/23/2022 [facility] 5.65 8:34 AM CDT x10(12)/L MCV 102.5 (H) 78.2 - 01/23/2022 [facility] 97.9 fL 8:34 AM CDT RBC Distrib Width 12.3 11.8 - 01/23/2022 [facility] 14.5 % 8:34 AM CDT Platelet Count 249 135 - 317 01/23/2022 [facility] x10(9)/L 8:34 AM CDT Leukocytes 4.3 3.4 - 9.6 01/23/2022 [facility] x10(9)/L 8:34 AM CDT Specimen Anatomical Collection Method Collection Time Receive d Time (Source) Location / / Volume Laterality Blood (Blood, 01/23/2022 8:11 AM 01/24/20 22 8:13 Venous) CDT AM CDT Angélcia Granger P.A.-C. LAB BLOOD ADD-ON Performing Organization Address City/State/[facility] Code Phon e Number [facility]- [address] [place] [address] [facility] [address] System in [address] documented in this encounter Visit Diagnoses Diagnosis Transplant Liver (HCC) Medication Therapy Tailer Off Not Anticoa gulant documented in this encounter Additional Health Concerns Assessment Noted Time PHQ-9 Depression Total Score: 4 11/28/2020 10:17 AM CD T documented as of this encounter Care Teams Tire Mechanic Relationship Specialty Start Date End Date Elsewhere, Pcp PCP - General Family Medicine 07/29/17 [facility] - Laboratory Medicine 04/12/20 [place] [phone] documented as of this encounter
--- OUTSIDE RECORDS SUMMARY | 2022-04-13 11:55 | XMS_ITS | Encounter Summary ---
:1955 [facility] Organization [facility] Address [address] [place] [address] Care Team Providers Name Role Phone Elsewhere, Pcp Primary Care Provider Unavailable Encounter Details Date Type Department Care Team Description 01/16/2022 Hospital Encounter Department of Angélica Granger ant Liver (HCC); Laboratory Medicine J PDemetriusADurgaC. Medication Therapy Usp Not Anticoa gulant in [address] [address] [place], [place] [phone] (Work) [phone] Social History Tobacco Use Types Packs/Day Years [...] place to sleep or slept in a mcc (including now)? Education Answer Date Recorded What is the highest level of school Associate degree: jennifer reyes, 12/14/2021 you have completed or the highest technical, or vocational p beatriz degree you have received? 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 spray ketoconazole (NIZORAL) 2 Apply 1 application 120 [...] 22 mg-mg-mcg tablet mouth daily with dinner. traZODone (DESYREL) 100 Take 1 tablet (100 90 tablet 3 03/12/202108/27/2022 mg tablet mg total) by mouth at [...] capsuleIndications: mouth 2 (two) times Transplant Liver ([facility]), a day. Do not Infection break, cut, or open Cytomegalovirus (HCC), capsules. Medication Therapy Usp Not Anticoagulant tacrolimus (PROGRAF) 0.5 Take 1 capsule (0.5 90 capsule 3 03/15/2022 mg capsuleIndications: mg total) by mouth Transplant Liver (HCC), daily. Medication Therapy [place] Not Anticoagulant torsemide (DEMADEX) 10 Take 3 tablets (30 60 tablet 1 10/1701/31/2022 mg tablet mg total) by mouth daily. voriconazole (VFEND) 200 Take 1 tablet (200 180 tablet 0 01/18/2022 mg tablet mg total) by mouth 2 (two) times a day. Take one hour before or 2 hours after a meal. documented as 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 [address] [place] [phone] 04/25/2022 Office Visit Otorhinolaryngology Dex Matta APRN, C.N.P., M.S.N. [address] [place] [phone] 05/08/2022 Appointment Laboratory Medicine Angélica Granger P.A.-C. [address] [place] [phone] 05/08/2022 Clinical Admitting/Central Communication Scheduling 05/10/2022 Appointment Radiology Jeremie Rose M.D. [address] [place] [phone] 05/10/2022 Comprehensive Visit Orthopedic Surgery Warner Graves M.D. [address] [place] [phone] 05/22/2022 Appointment Laboratory Medicine Angélica Granger P.A.-C. [address] [place] [phone] 06/05/2022 Appointment Laboratory Medicine Angélica Granger P.A.-C. [address] [place] [phone] 06/19/2022 Appointment Laboratory Medicine Angélica Granger P.A.-C. [address] [place] [phone] 07/03/2022 Appointment Laboratory Medicine Angélica Granger P.A.-C. [address] [place] [phone] 07/17/2022 Appointment Laboratory Medicine Angélica Granger P.A.-C. [address] [place] [phone] 07/31/2022 Appointment Laboratory Medicine Angélica Granger P.A.-C. [address] [place] [phone] 08/14/2022 Appointment Laboratory Medicine Angélica Granger P.A.-C. [address] [place] [phone] 08/28/2022 Appointment Laboratory Medicine Angélica Granger P.A.-C. [address] [place] [phone] documented as of this encounter Procedures Procedure Name Priority Date/Time Associated Diagnosis Comme nts CMV DNA DETECT/QUANT, Routine 01/16/2022 8:09 Transplant Liver Results for this P AM CDT (HCC) procedure are in Medication Therapy the resul ts Usp Not section. Anticoagulant TACROLIMUS LEVEL, B Routine 01/16/2022 8:09 Transplant Liver R esults for this AM CDT (HCC) procedure are in Medication Therapy the resul ts [place]hel Not section. Anticoagulant CBC WITHOUT Routine 01/16/2022 8:09 Transplant Liver Results for this DIFFERENTIAL, B AM CDT (HCC) procedure are in Medication Therapy the resul ts [place]hel Not section. Anticoagulant GLUCOSE, FASTING, S/P Routine 01/16/2022 8:09 Transplant Liver Results for this AM CDT (HCC) procedure are in Medication Therapy the resul ts Usp Not section. Anticoagulant COMPREHENSIVE Routine 01/16/2022 8:09 Transplant Liver Results for this METABOLIC PANEL, S/P AM CDT (HCC) procedure are in Medication Therapy the resul ts Usp Not section. Anticoagulant documented in this encounter Results (ABNORMAL) Tacrolimus, B (01/16/2022 8:09 AM CDT) athologist Signature Tacrolimus, B 2.2 (L) 5.0-15.0 01/17/2022 SDSC (Trough) 10:46 AM CDT ng/mL Comment: [...] and its performa nce characteristics determined by [facility] in a manner consistent with CLIA requirements. This test has not been cleared or approved by the U.S. Mer d and Drug Administration. Specimen Anatomical Collection Method Collection Time Receive d Time (Source) Location / / Volume Laterality Blood (Blood, 01/16/2022 8:09 AM 01/18/20 22 7:08 Venous) CDT AM CDT Angélica Granger P.A.-C. LAB BLOOD NON ADD-ON Performing Organization Address City/[facility] Phon e Number [facility] [address] [place] [phone] [facility] [place] [address] Laboratory Medicine and Pathology [address] [place] [address] Dr. MURILLO (ABNORMAL) CMV DNA Detect / Quant, Plasma (01/16/2022 8:09 AM CDT) [facility] Method Time Signature CMV DNA <35 (A) Undetected 01/17/2022 [facility] Detect/Quant, IU/mL 3:56 PM CDT P Comment: Result in log [...] u sing the tika CMV test ([employer] with the tika 6800 System. Specimen Anatomical Collection Method Collection Time Receive d Time (Source) Location / / Volume Laterality Blood (Blood, 01/16/2022 8:09 AM 01/18/20 22 7:07 Venous) CDT AM CDT Angélica Granger P.A.-C. LAB MICROBIOLOGY - BLOOD ORD ERABLES Performing Organization Address City/[facility] Phon e Number [facility] DRIVE [address] [place], [place] [address] [facility] [place] [address] Laboratory Medicine and Pathology [address] [place] [address] Dr. MURILLO (ABNORMAL) Glucose, Fasting (01/16/2022 8:09 AM CDT) P athologist Signature Glucose, P 120 (H) 70 - 100 01/16/2022 [facility] mg/dL 8:29 AM CDT Last Intake 13 hr 01/16/2022 [facility] 8:10 AM CDT Specimen Anatomical Collection Method Collection Time Receive d Time (Source) Location / / Volume Laterality Blood (Blood, 01/16/2022 8:09 AM 01/17/20 8:11 Venous) CDT AM CDT Angélica Granger P.A.-C. LAB BLOOD NON ADD-ON Performing Organization Address City/State/ZIP Code Phon e Number [phone] [place] [address] [place] [address] System in [address] (ABNORMAL) Comprehensive Metabolic Panel (01/16/2022 8:09 AM CDT) Analysis Performed At Patho logist Time Signature Potassium, P 4.0 3.6 - 5.2 01/16/2022 [facility] mmol/L 8:34 AM CDT Sodium, P 136 135 - 145 01/16/2022 [facility] mmol/L 8:34 AM CDT Chloride, P 101 98 - 107 01/16/2022 [facility] mmol/L 8:34 AM CDT Bicarbonate, P 23 22 - 29 01/16/2022 [facility] mmol/L 8:34 AM CDT Anion Gap, P 12 7 - 15 01/16/2022 [facility] 8:34 AM CDT BUN (Blood Urea 35 (H) 8 - 24 01/16/2022 [facility] Nitrogen), P mg/dL 8:34 AM CDT Creatinine 3.39 (H) 0.74 - 01/16/2022 [facility] 1.35 mg/dL 8:34 AM CDT eGFR-Black/Afri 20 (L) >=60 01/16/2022 [facility] can [place] mL/min/BSA 8:34 AM CDT Comment: ----ADDITIONAL INFORMATION---- Estimated GFR calculated using the 2009 CKD_EPI creatinine equation. eGFR Non-Black/ 18 (L) >=60 mL/min/BSA 01/16/2022 8:34 AM CDT [facility] [place] Comment: ----ADDITIONAL INFORMATION---- Estimated GFR calculated using the 2009 CKD_EPI creatinine equation. Calcium, Total, P 9.2 8.8 - 10.2 mg/dL 01/16/2022 8:34 AM CDT [facility] Glucose, P CANCELED mg/dL 01/16/2022 8:11 AM CDT CN[facility] Comment: Duplicate test request. Result canceled by the ancillary. Protein, Total, P 6.6 6.3 - 7.9 g/dL 01/16/2022 8:34 A M CDT [facility] Albumin, P 4.1 3.5 - 5.0 g/dL 01/16/2022 8:34 AM CDT C NFL Aspartate Aminotransferase 25 8 - 48 U/L 01/16/2022 8 :34 AM CDT [facility] (AST), P Alkaline Phosphatase, P 178 (H) 40 - 129 U/L 01/16/2022 8: 34 AM CDT [facility] Alanine Aminotransferase 32 7 - 55 U/L 01/16/2022 8:3 4 AM CDT [facility] (ALT), P Bilirubin, Total, P 0.3 <=1.2 mg/dL 01/16/2022 8:34 AM CDT CN[facility] Specimen Anatomical Collection Method Collection Time Receive d Time (Source) Location / / Volume Laterality Blood (Blood, 01/16/2022 8:09 AM 01/17/20 8:11 Venous) CDT AM CDT Angélica Granger P.A.-C. LAB BLOOD ADD-ON Performing Organization Address City/State/ZIP Code Phon e Number [facility] [address] [place] [phone] [place] [address] System [address] (ABNORMAL) CBC without Differential (01/16/2022 8:09 AM CDT) [facility] gist Method Time Signature Hemoglobin 11.9 (L) 13.2 - 01/16/2022 [facility] 16.6 g/dL 8:26 AM CDT Hematocrit 38.3 38.3 - 01/16/2022 [facility] 48.6 % 8:26 AM CDT Erythrocytes 3.62 (L) 4.35 - 01/16/2022 [facility] 5.65 8:26 AM CDT x10(12)/L MCV 105.8 (H) 78.2 - 01/16/2022 [facility] 97.9 fL 8:26 AM CDT RBC Distrib Width 12.8 11.8 - 01/16/2022 [facility] 14.5 % 8:26 AM CDT Platelet Count 231 135 - 317 01/16/2022 [facility] x10(9)/L 8:26 AM CDT Leukocytes 5.3 3.4 - 9.6 01/16/2022 [facility] x10(9)/L 8:26 AM CDT Specimen Anatomical Collection Method Collection Time Receive d Time (Source) Location / / Volume Laterality Blood (Blood, 01/16/2022 8:09 AM 01/17/20 8:11 Venous) CDT AM CDT Angélica Granger P.A.-C. LAB BLOOD ADD-ON Performing Organization Address City/State/[facility] Code Phon e Number [facility]- [address] [place] [address] Blvd [place], [place] [phone] [place] [address] [place] [address] System [address] documented in this encounter Visit Diagnoses Diagnosis Transplant Liver (HCC) Medication Therapy Usp Not Anticoa gulant documented in this encounter Additional Health Concerns Assessment Noted Time PHQ-9 Depression Total Score: 4 11/28/2020 10:17 AM CD T documented as of this encounter Care Teams Core Analysis Operator Relationship Specialty Start Date End Date Elsewhere, Pcp PCP - General Family Medicine 07/29/17 [facility] - Laboratory Medicine 04/12/[address] [address] documented as of this encounter
--- OUTSIDE RECORDS SUMMARY | 2022-04-13 11:55 | XMS_ITS | Encounter Summary ---
:1955 Author Organization [facility] Address [address] [place] [address] Care Team Providers Name Role Phone Elsewhere, Pcp Primary Care Provider Unavailable Reason for Referral Specialty Diagnoses / Procedures Referred By Contact Refer red To Contact T [facility] [address] [place] [address] Referral ID Status Reason Start Date Expiration Date Visits Requ ested Visits Authorized Encounter Details Date Type Department Care Team Description 01/09/2022 Orders Only Curt Goldberg Immun odeficiency (HCC) (Primary Dx); [facility], Transplant Live r (HCC) Transplantation and R.N., Clinical Regeneration in [facility] [place], [place] [phone] [address] [facility] ([facility] [place] [address] Social History Tobacco Use Types Packs/Day [...] or relatives? How often do you attend temple or More than 4 times per year 12/15/2021 catholic services? 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 [address] [place] [phone] 05/08/2022 Appointment Laboratory Medicine Angélica Granger P.A.-CDemetrius [address] [place] [phone] 05/08/2022 Clinical Admitting/Central Communication Scheduling 05/10/2022 Appointment Radiology Jeremie Rose M.D. [address] [place] [phone] 05/10/2022 Comprehensive Visit Orthopedic Surgery Warner Graves M.D. [address] [place] [phone] 05/22/2022 Appointment Laboratory Medicine Angélica Granger P.A.-C. [address] [place] [phone] 06/05/2022 Appointment Laboratory Medicine Angélica Granger P.A.-C. [address] [place] [phone] 06/19/2022 Appointment Laboratory Medicine Angélica Granger P.A.-C. [address] [place] [phone] 07/03/2022 Appointment Laboratory Medicine Angélica Granger P.A.-C. [address] [place] [phone] 07/17/2022 Appointment Laboratory Medicine Angélica Granger P.A.-C. [address] [place] [phone] 07/31/2022 Appointment Laboratory Medicine Angélica Granger P.A.-C. [address] [place] [phone] 08/14/2022 Appointment Laboratory Medicine Angélica Granger P.A.-C. [address] [place] [phone] 08/28/2022 Appointment Laboratory Medicine Angélica Granger P.A.-C. [address] [place] [address] [place] [phone] Scheduled Referrals Name Type Priority Associated Diagnoses Order S chejohn Covid immunization Outpatient Routine Immunodeficie ncy (HCC) Expected: office visit Referral Transplant Liver (HCC) 01/21, Immuno/Booster Expires: 04/11/2023 documented as of this encounter Visit Diagnoses Diagnosis Immunodeficiency (HCC) - Primary Transplant Liver (HCC) documented in this encounter Additional Health Concerns Assessment Noted Time PHQ-9 Depression Total Score: 4 11/28/2020 10:17 AM CD T documented as of this encounter Care Teams Field Marketing Specialist Relationship Specialty Start Date End Date Elsewhere, Pcp PCP - General Family Medicine 07/29/17 [facility] - Laboratory Medicine 04/12/[address] [address] documented as of this encounter
--- OUTSIDE RECORDS SUMMARY | 2022-04-13 11:55 | XMS_ITS | Encounter Summary ---
:1955 Author Organization [facility] Address [address] [place] [id number] Care Team Providers Name Role Phone Elsewhere, Pcp Primary Care Provider Unavailable Reason for Visit Transplant (Routine) - Closed Specialty Diagnoses / Procedures Referred By Contact Refer red To Contact Transplant Surgery / Diagnoses Transplant Liver (HCC) Medication Therapy Jewelry Facer Not Anticoagulant Pneumonia Aspergillus (HCC) [facility] [address] [place] [address] Referral ID Status Reason Start Date Expiration Date Visits Requ ested Visits Authorized [id number] Closed 12/28/2021 12/28/2022 1 1 Encounter Details Date Type Department Care Team Description 01/21/2022 Office Visit Trung Swenson Pneumo lili Aspergillus (HCC) (Primary Dx); [facility] Infection Cytom egalovirus (HCC); Transplantation and M.S. Abnormal Computed Tomography Chest; Clinical Regeneration in [address] [place] [address] Transplant Liver (HCC); [place], [place] Medication Therapy Jewelry Facer Not Anticoagulant; [address] [place] [phone] Immunodeficiency Due To Drugs (HCC) [place] [phone] Social History Tobacco Use Types Packs/Day [...] More than 4 times per year 12/15/2021 episcopal services? Do you belong to any clubs [...] or the highest technical, or vocational p [facility] [place] degree you have received? Sex Assigned at Date Recorded Male 05/16/2020 4:27 PM [employer] documented as of this encounter Progress Notes Trung Plasencia P.A.-C., M.S. - 01/21/2022 2:00 PM CDT DEMOGRAPHIC INFORMATION Patient Name: Bruce Singh Clinic Number: [id number] Age: 66 y.o. Birthdate: 1955 Sex: male Service Date/Time: 01/21/22 3:02 PM CDT TRANSPLANT INFECTIOUS DISEASES SERVICE - Progress Note SUBJECTIVE REFERRAL SOURCE Trung Plasenica P.A.-C., M.S. REASON FOR VISIT Possible fungal pneumonia. Serratia pneumonia. CMV viremia. HISTORY OF PRESENT ILLNESS Mr. Singh is a 66 year old gentleman from [place], [place] whom I know from prior clinic visits. 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 He developed chronic kidney disease and is listed for kidney transplant. A tunneled dialysis catheter was placed on May 31, 2021 and he was initiated on dialysis on iHD on June 01, 2021. He is hoping to get a kidney transplant at some point. He was diagnosed with COVID-19 infection in Oct, 2020. Mr. Singh was diagnosed with Clostridioides difficile infection in April, treated with 10 days of oral vancomycin. 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 He was treated with IV ganciclovir and later transitioned to valganciclovir orally in July,. He was restarted on valganciclovir on October 13, 2021 due to CMV viremia. He was without symptoms at the time. He is also followed by Pulmonary Medicine and completed a swallow study including esophageal ph monitoring and manometry, all of which were normal. He has also had bronchoscopy and several sputum cultures for persistent tree-in-bud opacities, lower lobe nodularity and fleeting infiltrates on CT chest imaging. He has been unresponsive to inhalers, bronchial hygiene regimen, antimicrobials and steroids. CT chest imaging has been suggestive of aspiration which may occur at night. He has an upcoming Pulmonary appointment later this month (January,). He is s/p endoscopic sphenoidotomy with tissue removal, ethmoidectomy, maxillary antrostomy with tissue removal, septoplasty, frontal sinusotomy and reduction of inferior turbinates bilaterally on July 26, 2021. Mr. Singh was hospitalized October 12-2021 and diagnosed with Serratia pneumonia, possible aspiration pneumonitis and CMV viremia. He was treated with IV Cefepime initially, later changed to oral bactrim and valganciclovir for the CMV viremia. He also received oral vancomycin prophylaxis to prevent recurrence of Clostridioides difficile infection. Final Bactrim dose is 1 SS tablet daily. Valganciclovir 450 mg every 48 hours after dialysis on dialysis days. He was able to stop valganciclovir in November, but then in early December, he relapsed with low grade CMV viremia (313 IU/mL) and was placed back on valganciclovir with a good response. Last Qn CMV PCR on January 16, 2022 was <35 IU/mL. He will continue valganciclovir until he has a couple of consecutive undetected CMV PCR's. He continues to grow Serratia marcescens in respiratory secretions, susceptible to TMP/SMZ suggesting airway colonization as has been previously documented, with periodic exacerbation of respiratory symptoms. He has a chronic cough now for the past couple of years. Most recent BAL is from December 07, 2021. BAL from that date showed Serratia marcescens, 2+ and an elevated Aspergillus Antigen >=3.750. Fungal smear negative. Fungal culture yielded only saprophytic fungus, few. AFB smear negative and mycobacterial culture without growth. CT chest December 05, 2021 showed mild worsening micronodular opacities in the lingula and bilateral lower lobes with similar opacities in the basilar right middle lobe. S imilar bronchial wall thickening. He has grown Serratia on respiratory and sinus bacterial cultures dating back to February 01, 2020. He had not required antifungal therapy previously, however, he was started on voriconazole therapy after his last clinic visit on December 10, 2021. He could not afford the co-pay for Posaconazole. On voriconazole, however he has experienced increase in sunburn and he already has a history of non-melanoma skin cancers so we are going to change his antifungal agent to Isavuconazole (Cresemba) beginning tomorrow, January 22, 2022. He has a repeat Chest on January 21, 2022 and remains micronodular opacities involving the lingula, lower lobes and right middle lobe along with bronchial wall thickening He continues with a cough. He remembers when he was on a tapered course of prednisone in Oct, 2021 his cough actually resolved for a period of time. CT chest imaging, while not showing definite signs of an invasive fungal process, does show micronodular opacities in both lungs which have been present on prior imaging studies but overall there has been progression. He has calcified granulomata in the right lower lobe. He is on 3 drug immunosuppressi on. He remains symptomatic with chronic cough. It is hard to know what the isolated elevated BAL Aspergillus antigen level means, but he is at increased risk for developing an invasive fungal infection. He submitted a sputum earlier today. His serum Aspergillus antigen was negative. He remains on TMP/SMZ SS once daily after dialysis on dialysis days, to cover the Serratia. He can restart atorvastatinonce he is off voriconazole and on isavuconazole. He could try half a dose of his Trazodone while onantifungal therapy if he needs it to help him sleep. We discussed these changes today in clinic. ALLERGIES/CONTRAINDICATIONS Allergies Allergen Reactions Citalopram Other (see comments) Bonita, Liver transplant Ibuprofen Other (see comments) PT SHOULD NOT HAVE THIS MED R/T LIVER TRANSPLANT Olanzapine Other (see comments) Joint pain Quetiapine Edema and Other (see comments) Muscle pain and swelling Cefixime Diarrhea Ciprofloxacin Other (see comments) Tendon pain, Liver transplant Erythromycin Base Other (see comments) Due to medications, interacts with transplant medications Erythromycin Other (see comments) DIAGNOSTICS LABS: I have reviewed the patient's current pertinent laboratory, imaging, and other diagnostic studies which are available in [facility] respectively. Lab Results Component Value Date HGB 11.9 (L) 01/16/2022 WBC 5.3 01/16/2022 PLT 231 01/16/2022 NA 136 01/16/2022 KSERUM 3.8 10/15/2021 CL 101 01/16/2022 BICARB 23 01/16/2022 CREATININE 3.39 (H) 01/16/2022 EGFRNONBLKAA 18 (L) 01/16/2022 ALT 32 01/16/2022 AST 25 01/16/2022 ALKPHOS 178 (H) 01/16/2022 BILITOT 0.3 01/16/2022 VITALS Temperature: 36.2 C Weight: 73.0 kg Physical Exam General: Awake, alert and oriented. No acute distress. Chronic cough. Comfortable at rest. Eyes: Sclerae non-icteric. Conjunctivae non-injected. Lungs: Scattered wheezes and rhonchi. Skin: Sun tanned. Right ear helix bandage on. S/P Mohs today for biopsy proven SCC. Extremities: Generalized muscle atrophy. Gait: Normal. Ambulates on his own without assistance. DISCUSSION Mr. Singh has a couple of ongoing infection issues. 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 He was restarted on oral valganciclovir in early December, and his last Qn CMV PCR from January 16 was <35 IU/mL. Current valganciclovir dose is 450 mg every 48 hours after dialysis on dialysis days. He should continue until we have at least 2 consecutive undetected CMV PCR's a week apart. A second infection issue is the long-standing problem of chronic cough in the setting of chronic bronchiolitis and possibleaspiration with airway colonization of Serratia Marcescens dating back to January,. He has evidence of progressive micronodularity involving multiple lobes on CT chest imaging. The Serratia organism is MDR. He has been taking Bactrim SS daily after dialysis on dialysis days now for about 6 weeks. He submitted a sputum earlier today and also had a CT chest done. Bronchoscopy December 07, 2021 yielded Serratia marcescens, 2+ and an elevated BAL Aspergillus antigen of >3.750 in the setting of chronic immunosuppression and progressive micronodularity. He is s/p endoscopic sinus surgery on July 26, 2021. Mr. Singh is trying to get activated for kidney transplant so we are being more aggressive in going after possible infection so he can be activated for kidney transplantation. He was started on antifungal therapy with voriconazole but does not tolerate the drug well so he is being switched over to is avuconazole beginning tomorrow, January 22, 2022. Although we do not have a positive fungal culture from the BAL or sputum thus far, he is being treated as a possible fungal pneumonia given the elevatedBAL aspergillus antigen and multifocal micronodular opacities on CT chest imaging. He also continueson TMP/SMZ SS tablet once daily in the evening after dialysis on dialysis days and we will wait to see what today's sputum bacterial culture shows. He has completed almost 6 weeks of therapy at this point so I would like to get him off it. Today's CT chest report continues to show moderate bronchial wall thickening and scattered endobronchial plugging with some areas worse compared to the prior exam.He continues to have ground glass opacities in the right upper lobe and micronodularity in the rightupper and middle lobes which is slightly improved. The micronodularity in the lower lobes and lingula are stable to mildly improved. I think that he will benefit from long-term Pulmonary Medicine follow- up with aggressive pulmonary hygiene to help clear secretions and minimize mucous plugging. ASSESSMENT / PLAN #1 Reactivation CMV viremia, December, Restarted valganciclovir and is well controlled but not yet fully suppressed. Treat until 2 consecutive undetected CMV PCR's. #2 Elevated BAL Aspergillus antigen, December 07, [address] chest imaging Serum Aspergillus antigen negative. Started on antifungal therapy with voriconazole but has not tolerated the drug well developing photosensitivity, headaches and non-melanoma skin cancers. BAL fungal culture with saprophytic fungus only. To start Isavuconazole (Cresemba) tomorrow. Plan on a minimum of 3 months of antifungal therapy. Has received about 5 weeks of antifungal coverage thus far. #[address] chest imaging RML, lingula and both lower lobes Findings are concerning for an infectious/inflammatory process. Possible Aspergillus pneumonia. 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 #5 Recurrent Clostridioides difficile infection, last episode, May 24, 2021 He does not complain of any diarrhea. #6 Chronic kidney disease, stage 5, dialysis dependent Potential kidney transplant candidate. On hold at present. #7 S/P Liver transplantation, June 13, 2013 #8 Chronic immunosuppression with CellCept, prednisone and tacrolimus #9 Initial liver transplant, May 25, 1999 - complicated by late onset HAT/ischemic cholangiopathy #10 Chronic rhinosinusitis with chronic cough and post nasal drip with recurrent aspiration S/P endoscopic sinus surgery July 26, 2021 with some improvement in symptoms. SUGGESTIONS/RECOMMENDATIONS 1. Continue valganciclovir 450 mg every 48 hours, after dialysis on dialysis days. Treat until at least 2 consecutive undetected CMV PCR's one week apart. 2. Continue TMP/SMZ SS tablet one daily in the evening (after dialysis) pending results of sputum submitted on January 21, 2022. 3. To start Cresemba (Isavuconazole) antifungal therapy tomorrow. 2 day loading dose 372 mg every 8 hours x 6 doses, followed by 372 mg (2 186 mg capsules) once daily thereafter. Take with or without food. 4. Stop voriconazole once he begins Isavuconazole. 5. Can restart Atorvastatin while on Isavuconazole. 6. Suggest half-dose of Trazodone while on Isavuconazole. 7. Closely monitor serum tacrolimus levels on Isavuconazole and adjust tacrolimus dose accordingly. 8. Await sputum microbiology from today's specimen. 9. Total duration of antifungal therapy to be determined. At least 3 months. 10. Pulmonary Medicine clinic visit as scheduled later this month. Patient to message them if they want updated PFT's. Needs aggressive pulmonary hygiene. 11. Labs on Friday's. Continue with weekly QN CMV PCR's while on valganciclovir. Patient is traveling to [place], [place] later this month. 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 PATIENT EDUCATION Ready to learn, no apparent learning barriers were identified; learning preferences include listening. Explained diagnosis and treatment plan; patient expressed understanding of the content. Thank you for the opportunity to participate in the care of Mr. Singh. Trung Plasencia P.A.-C., M.S. LATER SAME DAY, JANUARY 21, 2022 Called Bruce by telephone this afternoon and notified him of today's CT chest results. He had sent me in [employer] portal message stating that he had no refills on his Bactrim so I have electronically generated a new prescription to his local pharmacy at his request. Trung Plasencia P.A.-C., M.S. documented in this encounter Plan of Treatment Upcoming Encounters Date Type Specialty Care Team Description 04/24/2022 Appointment Laboratory Medicine Angélica Granger P.A.-C. [address] [place] [phone] 04/25/2022 Office Visit Otorhinolaryngology Dex Matta APRN, C.N.P., M.S.N. [address] [place] [phone] 05/08/2022 Appointment Laboratory Medicine Angélica Granger P.A.-C. [address] [place] [phone] 05/08/2022 Clinical Admitting/Central Communication Scheduling 05/10/2022 Appointment Radiology Jeremie Rose M.D. [address] [place] [phone] 05/10/2022 Comprehensive Visit Orthopedic Surgery Warner Graves M.D. [address] [place] [phone] 05/22/2022 Appointment Laboratory Medicine Angélica Granger P.A.-C. [address] [place] [phone] 06/05/2022 Appointment Laboratory Medicine Angélica Granger P.A.-C. [address] [place] [phone] 06/19/2022 Appointment Laboratory Medicine Angélica Granger P.A.-C. [address] [place] [phone] 07/03/2022 Appointment Laboratory Medicine Angéilca Granger P.A.-C. [address] [place] [phone] 07/17/2022 Appointment Laboratory Medicine Angélica Granger P.A.-C. [address] [place] [phone] 07/31/2022 Appointment Laboratory Medicine Angélica Granger P.A.-C. [address] [place] [phone] 08/14/2022 Appointment Laboratory Medicine Angélica Granger P.A.-C. [address] [place] [phone] 08/28/2022 Appointment Laboratory Medicine Angélica Granger P.A.-C. 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
--- OUTSIDE RECORDS SUMMARY | 2022-04-13 11:55 | XMS_ITS | Encounter Summary ---
:1955 Author Organization [facility] Address [address] [place] [address] Care Team Providers Name Role Phone Elsewhere, Pcp Primary Care Provider Unavailable Reason for Referral MRI/CAT/PET Scan (Routine) - Closed Specialty Diagnoses / Procedures Referred By Contact Refer red To Contact Radiology Diagnoses Transplant Liver (HCC) Medication Therapy Denture Technician Not Anticoagulant Pneumonia Aspergillus (HCC) Trung Plasencia P.A.-C., [facility] Procedures CT Chest without IV Contrast M.S. [address] [place], [place] [phone] Referral ID Status Reason Start Date Expiration Date Visits Requ ested Visits Authorized [id number] Closed 12/28/2021 12/28/2022 1 1 Reason for Visit MRI/CAT/PET Scan (Routine) - Closed Specialty Diagnoses / Procedures Referred By Contact Refer red To Contact Radiology Diagnoses Transplant Liver (HCC) Medication Therapy Denture Technician Not Anticoagulant Pneumonia Aspergillus (HCC) Trung Plasencia P.A.-C., [facility] Procedures CT Chest without IV Contrast M.S. [address] [place], [place] [address] Referral ID Status Reason Start Date Expiration Date Visits Requ ested Visits Authorized [id number] Closed 12/28/2021 12/28/2022 1 1 Encounter Details Date Type Department Care Team Description 01/21/2022 Hospital Encounter Department of Trung Plasencia nt Liver (HCC); Radiology, Kd Stern P.A.-C., Medication Therapy [facility] Not Anticoagulant; Building, in M.S. Pneumonia Aspergillus (HCC) [place], [place] 200 [facility] [address] [place] [phone] Social History Tobacco Use Types Packs/Day Years [...] More than 4 times per year 12/15/2021 [employer] services? 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 Medication Therapy Denture Technician Not Anticoagulant tacrolimus (PROGRAF) 0.5 Take 1 capsule (0.5 90 capsule 3 03/15/2022 mg capsuleIndications: mg total) by mouth Transplant Liver (HCC), daily. Medication Therapy Denture Technician Not Anticoagulant torsemide (DEMADEX) 10 Take 3 tablets (30 60 tablet 1 10/1701/31/2022 mg tablet mg total) by mouth daily. documented as of this encounter Plan of Treatment Upcoming Encounters Date Type Specialty Care Team Description 04/24/2022 Appointment Laboratory Medicine Angélica Granger, Evan.A.-C. [address] [place] [phone] 04/25/2022 Office Visit Otorhinolaryngology Dex Matta, RAMONA, C.N.P., M.S.N. [address] [place] [phone] 05/08/2022 Appointment Laboratory Medicine Angélica Granger P.A.-CDemetrius [address] [place] [phone] 05/08/2022 Clinical Admitting/Central Communication Scheduling 05/10/2022 Appointment Radiology Jeremie Rose M.D. [address] [place] [phone] 05/10/2022 Comprehensive Visit Orthopedic Surgery Warner Graves M.D. [address] [place] [phone] 05/22/2022 Appointment Laboratory Medicine Angélica Granger P.A.-C. [address] [place] [phone] 06/05/2022 Appointment Laboratory Medicine Angélica Granger P.A.-C. [address] [place] [phone] 06/19/2022 Appointment Laboratory Medicine Angélica Granger P.A.-C. [address] [place] [phone] 07/03/2022 Appointment Laboratory Medicine Angélica Granger P.A.-C. [address] [place] [address] [phone] 07/17/2022 Appointment Laboratory Medicine Angélica Granger P.A.-C. [address] [place] [phone] 07/31/2022 Appointment Laboratory Medicine Angélica Granger P.A.-C. [address] [place] [address] [phone] 08/14/2022 Appointment Laboratory Medicine Angélica Granger P.A.-C. [address] [place] [phone] 08/28/2022 Appointment Laboratory Medicine Angélica Granger P.A.-C. [address] [place] [phone] documented as of this encounter Procedures Procedure Name Priority Date/Time Associated Comments Diagnosis CT CHEST WITHOUT RAD - Routine 01/21/2022 9:26 Transplant Liver Res ults for this IV CONTRAST (most inpatients AM CDT (HCC) procedure are in and all Medication Therapy the resul ts outpatients) Mcc Not section. Anticoagulant Pneumonia Aspergillus (HCC) documented in this encounter Results CT Chest without IV Contrast (01/21/2022 9:26 AM CDT) Anatomical Region Laterality Modality Chest, Thoracic RST LOS, Thoracic ARZ N/A Co mputed Tomography, Computed LOS, Thoracic FLA LOS Tomography Specimen (Source) Anatomical Collection Method Collection Time Re ceived Time Location / / Volume Laterality 01/21/2022 1:52 PM CDT Impressions 01/21/2022 2:41 PM CDT Micro-nodularity in the right upper lobe and middle lobe slightly improved. Diffuse pulmonary micro-nodularity throughout the lower lo bes and lingula are again noted with some areas which are stable others which are mildly improved. Findings are most consistent with an infectious/inflammatory process. Narrative 01/21/2022 2:41 PM CDT EXAM: CT CHEST WITHOUT IV CONTRAST COMPARISON: CT chest dated 12/05/2021. FINDINGS: Moderate bronchial wall thickening. Sca ttered endobronchial plugging with some areas which are slightly worsened since the prior exam. Stable groundglass opacities in the right upper lobe. Micro-nodularity in the right upper lobe and middle lobe slightly improved. Diffuse pulmonary micro-nodularity throughout the lower lo bes and lingula is again noted with some areas of stable others are mildly improved. No pleural e ffusion. No intrathoracic lymphadenopathy by CT s ize criteria. Stable dilation of the mid ascending aorta (41 mm). Mild calcifications of the thoracic aorta. Severe coronary artery calcifications. Small hiatal hernia. Mild bilateral gynecomastia. Healed bila teral rib fractures. Multilevel mild degenerative changes of the spine. Chronic fracture deformity ri ght clavicle. Bone island left humeral head. Degenerative changes of the spine. Postoperative changes liver transplant. Cholecystectomy.. Stable splenomegaly measuring up to 13.6 cm in AP dimension. Splenule. Pancreatic cyst in the tail is partially visualized. Procedure Note Angi Duncan M.D. - 01/21/2022Form atting of this note might be different from the original. EXAM: CT CHEST WITHOUT IV CONTRAST COMPARISON: CT chest dated 12/05/2021. FINDINGS: Moderate bronchial wall thickening. Sca ttered endobronchial plugging with some areas which are slightly worsened since the prior exam. Stable groundglass opacities in the right upper lobe. Micro-nodularity in the right upper lobe and middle lobe slightly improved. Diffuse pulmonary micro-nodularity throughout the lower lo bes and lingula is again noted with some areas of stable others are mildly improved. No pleural e ffusion. No intrathoracic lymphadenopathy by CT s ize criteria. Stable dilation of the mid ascending aorta (41 mm). Mild calcifications of the thoracic aorta. Severe coronary artery calcifications. Small hiatal hernia. Mild bilateral gynecomastia. Healed bila teral rib fractures. Multilevel mild degenerative changes of the spine. Chronic fracture deformity ri ght clavicle. Bone island left humeral head. Degenerative changes of the spine. Postoperative changes liver transplant. Cholecystectomy.. Stable splenomegaly measuring up to 13.6 cm in AP dimension. Splenule. Pancreatic cyst in the tail is partially visualized. IMPRESSION: Micro-nodularity in the right upper lobe and middle lobe slightly improved. Diffuse pulmonary micro-nodularity throughout the lower lo bes and lingula are again noted with some areas which are stable others which are mildly improved. Findings are most consistent with an infectious/inflammatory process. Trung Plasencia P.A.-C., M.S. IMG CT PROCEDURES documented in this encounter Visit Diagnoses Diagnosis Transplant Liver (HCC) Medication Therapy Denture Technician Not Anticoa gulant Pneumonia Aspergillus (HCC) documented in this encounter Additional Health Concerns Assessment Noted Time PHQ-9 Depression Total Score: 4 11/28/2020 10:17 AM CD T documented as of this encounter Care Teams Automobile Body Repair Chief Relationship Specialty Start Date End Date Elsewhere, Pcp PCP - General Family Medicine 07/29/17 [facility] - Laboratory Medicine 04/12/[address] [address] documented as of this encounter
--- OUTSIDE RECORDS SUMMARY | 2022-04-13 11:55 | XMS_ITS | Encounter Summary ---
:1955 Author Organization [facility] Address [address] [place] [id number] Care Team Providers Name Role Phone Elsewhere, Pcp Primary Care Provider Unavailable Encounter Details Date Type Department Care Team Description 01/11/2022 Nurse Only Department of Dermatology in Varun Chand M.D., M.S. [address] [place] [phone] [place], [place] Mary Jane Cain RDemetriusNDemetrius [address] [place] [phone] Social History Tobacco Use Types Packs/Day [...] or relatives? How often do you attend islam or More than 4 times per year 12/15/2021 adventist services? Do you belong to any clubs or No 12/15/2021 organizations such as islam groups, unions, fraternal or athletic groups, or [...] the highest level of school Associate degree: renukaa eric, 12/14/2021 you have completed or the highest technical, or vocational p beatriz degree you have received? 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 - 01/11/2022 4:00 PM CDT Patient returns for wound exam status post mohs for Derm Diagnosis: Squamous Cell Carcinoma by Dr. Lonnie Saldivar ([phone]) and Dr. Nino on January 04, [address] Dr[address] Liam Bautista seen and consulted patient Supervising Physician: Dr. Gerardo Hale ([phone]) Wound cleansed with normal saline. Wound is Description of wound: healing well, incision well approximated, minimal erythema, and tenderness. Wound dressing Vaseline and bandage applied. Patient is going on a motorcycle trip next week and wanted to be seen to make sure area is looking ok. Patient complains of tenderness on the outside of the ear but states there is no tenderness on the inside. Dr. Bautista seen patient and states the ear is looking good and to continue with wound care. Due to the tenderness of the ear and patient being immunocompromised, Dr. Bautista prescribed an antibiotic ear drop. Sent prescription for Ofloxacin 0.3 otic solution 2 drops four times daily for seven days. Patient will also continue vinegar soaks for another week. Patient was advised to keep a bandage on area at all times, especially while on his bike. Also advised to continue with tylenol for pain. Signs and symptoms of infection were gone over and patient will call with questions or concerns as needed. Teaching provided to teach: patient. Evaluation of learning able to teach back. Time spent with patient 20 minutes. documented in this encounter Plan of Treatment Upcoming Encounters Date Type Specialty Care Team Description 04/24/2022 Appointment Laboratory Medicine Angélica Gragner P.A.-C. [address] [place] [address] [phone] 04/25/2022 Office Visit Otorhinolaryngology Dex Matta APRN, C.N.P., M.S.N. [address] [place] [phone] 05/08/2022 Appointment Laboratory Medicine Angélica Granger P.A.-C. [address] [place] [phone] 05/08/2022 Clinical Admitting/Central Communication Scheduling 05/10/2022 Appointment Radiology Jeremie Rose M.D. [address] [place] [phone] 05/10/2022 Comprehensive Visit Orthopedic Surgery Warner Graves M.D. [address] [place] [phone] 05/22/2022 Appointment Laboratory Medicine Angélica Granger P.A.-C. [address] [place] [phone] 06/05/2022 Appointment Laboratory Medicine Angélica Granger P.A.-C. [address] [place] [phone] 06/19/2022 Appointment Laboratory Medicine Angélica Granger P.A.-C. [address] [place] [phone] 07/03/2022 Appointment Laboratory Medicine Angélica Granger P.A.-C. [address] [place] [phone] 07/17/2022 Appointment Laboratory Medicine Angélica Granger P.A.-C. [address] [place] [phone] 07/31/2022 Appointment Laboratory Medicine Angélica Granger P.A.-C. [address] [place] [phone] 08/14/2022 Appointment Laboratory Medicine Angélica Granger P.A.-C. [address] [place] [phone] 08/28/2022 Appointment Laboratory Medicine Angélica Granger P.A.-C. [address] [place] [phone] documented as of this encounter Visit Diagnoses Not on filedocumented in this encounter Additional Health Concerns Assessment Noted Time PHQ-9 Depression Total Score: 4 11/28/2020 10:17 AM CD T documented as of this encounter Care Teams Coffee Maker Relationship Specialty Start Date End Date Elsewhere, Pcp PCP - General Family Medicine 07/29/17 [facility] - Laboratory Medicine 04/12/[address] [address] documented as of this encounter
--- OUTSIDE RECORDS SUMMARY | 2022-04-13 11:56 | XMS_ITS | Encounter Summary ---
:1955 Author Organization [facility] Address [address] [place] [address] Care Team Providers Name Role Phone Elsewhere, Pcp Primary Care Provider Unavailable Encounter Details Date Type Department Care Team Description 01/03/2022 Clinical Communication Irena Gamez [facility] for R, R.N. Transplantation and [address] [place] [address] Clinical [facility] in [place], [place] [phone] [place] [address] [place] [phone] (Work) [phone] Social History Tobacco Use Types Packs/Day Years [...] or relatives? How often do you attend latter day or More than 4 times per year 12/15/2021 [employer] services? 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 - 01/03/2022 3:54 PM CDT Please review labs below. Bruce [...] pulmonary aspergillosis and Bactrim for Chronic rhinosinusitis Current Medications & Recent Dose Changes: Tacrolimus 0.5 mg daily (decreased from 0.5 mg bid 12/27/21) Mycophenolate 500 mg BID (Decreased to 250 mg BID 10/11) Prednisone 5 mg daily Labs: Recent Labs 01/02/22 0802 12/26/21 0807 12/19/21 0835 12/03/21 0756 11/28/21 0819 11/21/21 0802 TACROLIMUS 3.1 L 6.0 7.8 1.6 L 2.0 L <1.0 L Recent Labs 01/02/22 0802 12/26/21 0807 12/19/21 0836 12/19/21 0835 12/03/21 0756 12/03/21 0755 10/17/21 0838 10/15/21 0808 10/15/21 0439 10/14/21 0447 10/13/21 0519 10/12/21 1612 10/12/21 1451 10/12/21 1451 HGB 10.8 L 10.6 L -- 10.3 L -- 9.8 L < > 8.2 L -- 7.9 L 8.0 L -- -- 8.8 L HCT 34.4 L 34.1 L -- 32.5 L -- 31.1 L < > 24.9 L -- 24.1 L 24.7 L 25.0 L -- 27.0 L WBC 3.9 3.8 -- 4.1 -- 3.9 < > 3.9 -- 4.4 4.4 -- -- 7.2 NEUTROPHILS -- -- -- -- -- See manual differential -- 2.81 -- 3.21 SeeComment -- -- 6.42 PLT 256 253 -- 254 -- 292 < > 181 -- 178 166 -- -- 182 NA 137 135 -- 134 L -- 138 < > 130 L -- 127 L 128 L 124 L < > 124 L KPLASMA 4.4 4.0 -- 3.9 -- 3.9 < > -- -- -- -- -- -- 4.7 KBLOOD -- -- -- -- -- -- -- -- -- -- -- 4.7 -- -- KSERUM -- -- -- -- -- -- -- 3.8 -- 4.0 3.8 -- -- -- MG -- -- -- -- -- 2.3 -- -- 2.3 -- -- -- -- -- GLUCOSE CANCELED 106 H CANCELED 109 H < > CANCELED -- 110 < > 131 -- 228 H 216 H -- < > 435 Crit H HGBA1C -- -- -- -- 5.6 -- -- -- -- -- 7.4 H -- -- -- BUN 28 H 34 H -- 30 H -- 45 H < > 63 H -- 58 H 45 H -- < > 35 H CREATININE 3.85 H 3.95 H -- 4.08 H -- 4.03 H < > 4.41 H -- 4.13 H 3.39 H -- < > 2.48 H ALKPHOS 146 H 128 -- 117 -- 107 < > -- -- -- 86 -- -- 101 AST 24 27 -- 25 -- 21 < > -- -- -- 14 -- -- 17 ALT 20 21 -- 17 -- 17 < > -- -- -- 17 -- -- 21 BILITOT 0.3 0.3 -- 0.4 -- 0.3 < > -- -- -- 0.2 -- -- 0.5 BILIDIR -- -- -- -- -- <0.2 -- -- -- -- -- -- -- <0.2 PT -- -- -- -- 11.1 -- -- -- -- -- -- -- -- -- INR -- -- -- -- 1.0 -- -- -- -- -- -- -- -- -- ALBUMIN 4.0 4.2 -- 4.1 -- 4.2 < > 3.7 -- 3.5 3.4 L -- -- 3.5 < > = values in this interval not displayed. Serologies: Recent Labs 01/02/22 0802 12/26/21 0807 12/19/21 0835 12/03/21 0756 CMVQUANT 65 A 313 A <35 A Undetected No results for input(s): EBVDNADETQUP, EBVDNADETQUA, EBVQU, EBVCOPIES, EBVPCRQUANT in the last 2190 hours. No lab exists for component: SEBV Recent Labs 12/05/21 0722 HEPBANTSCRN Negative HEPBSABSCRN Positive HEPBCABSCRN Negative Immunosuppression Goal Range: 1.5-4 Current Lab Frequency: weekly Please advise on any changes or recommendations. Thanks, Yolie Dubois R.N. *All labs are now found in [facility] - Lab - Flowsheets. For further review of labs, please review there or under Synopsis* documented in this encounter Plan of Treatment Upcoming Encounters Date Type Specialty Care Team Description 04/24/2022 Appointment Laboratory Medicine Angélica Granger P.A.-C. [address] [place] [phone] 04/25/2022 Office Visit Otorhinolaryngology Dex Matta APRN, C.N.P., M.S.N. [address] [place] [address] [phone] 05/08/2022 Appointment Laboratory Medicine Angélica Granger P.A.-C. [address] [place] [address] [phone] 05/08/2022 Clinical Admitting/Central Communication Scheduling 05/10/2022 Appointment Radiology Jeremie Rose M.D. [address] [place] [phone] 05/10/2022 Comprehensive Visit Orthopedic Surgery Warner Graves M.D. [address] [place] [address] [phone] 05/22/2022 Appointment Laboratory Medicine Angélica Granger P.A.-C. [address] [place] [phone] 06/05/2022 Appointment Laboratory Medicine Angélica Granger P.A.-C. [address] [place] [phone] 06/19/2022 Appointment Laboratory Medicine Angélica Granger P.A.-C. [address] [place] [phone] 07/03/2022 Appointment Laboratory Medicine Angélica Granger P.A.-C. [address] [place] [phone] 07/17/2022 Appointment Laboratory Medicine Angélica Granger P.A.-C. [address] [place] [phone] 07/31/2022 Appointment Laboratory Medicine Angélica Granger P.A.-C. [address] [place] [phone] 08/14/2022 Appointment Laboratory Medicine Angélica Granger P.A.-C. [address] [place] [address] [phone] 08/28/2022 Appointment Laboratory Medicine Angélica Granger P.A.-C. [address] [place] [address] [phone] documented as of this encounter Visit Diagnoses Not on filedocumented in this encounter Additional Health Concerns Assessment Noted Time PHQ-9 Depression Total Score: 4 11/28/2020 10:17 AM CD T documented as of this encounter Care Teams Box Office Agent Relationship Specialty Start Date End Date Elsewhere, Pcp PCP - General Family Medicine 07/29/17 [facility] - Laboratory Medicine 04/12/[address] [address] documented as of this encounter
--- OUTSIDE RECORDS SUMMARY | 2022-04-13 11:56 | XMS_ITS | Encounter Summary ---
:1955 Author Organization [facility] Address [address] [place] [address] Care Team Providers Name Role Phone Elsewhere, Pcp Primary Care Provider Unavailable Encounter Details Date Type Department Care Team Description 12/27/2021 Clinical Communication Irena Gamez [facility] for R, R.N. Transplantation and [address] [place] [address] Clinical [facility] in [place], [place] [address] [place] [address] [place] [address] (Work) [phone] Social History Tobacco Use Types Packs/Day Years [...] or relatives? How often do you attend evangelical or More than 4 times per year 12/15/2021 adventism services? 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 - 12/27/2021 4:55 PM CDT Provider who reviewed results: Dr Trammell and AMINATA Enriquez Recommendations: restart valcyte 450 mg every other day (renally dosed) and decrease tacrolimus to 0.5 mg daily Labs are due: 1 week Patient Online Services message was initiated by a [facility] Registered Nurse for report of test results and recommendations. Telephone Encounter - Yolie Dubois R.N. - 12/27/2021 3:10 PM CDT Please review labs below. Bruce [...] reactivation. Valcyte stopped 12/10 per Trung Plasencia. On 12/11 Bruce started Voriconazole for pulmonary aspergillosis and Bactrim for Chronic rhinosinusitis Current Medications & Recent Dose Changes: Tacrolimus 1 mg BID (decreased from 1 mg bid 12/21/21) Mycophenolate 500 mg BID (Decreased to 250 mg BID 10/11) Prednisone 5 mg daily Labs: Recent Labs 12/26/21 0807 12/19/21 0835 12/03/21 0756 11/28/21 0819 11/21/21 0802 11/14/21 0732 TACROLIMUS 6.0 7.8 1.6 L 2.0 L <1.0 L <1.0 L Recent Labs 12/26/21 0807 12/19/21 0836 12/19/21 0835 12/03/21 0756 12/03/21 0755 10/17/21 0838 10/15/21 0808 10/15/21 0439 10/14/21 0447 10/13/21 0519 10/12/21 1612 10/12/21 1451 10/12/21 1451 HGB 10.6 L -- 10.3 L -- 9.8 L < > 8.2 L -- 7.9 L 8.0 L -- -- 8.8 L HCT 34.1 L -- 32.5 L -- 31.1 L < > 24.9 L -- 24.1 L 24.7 L 25.0 L -- 27.0 L WBC 3.8 -- 4.1 -- 3.9 < > 3.9 -- 4.4 4.4 -- -- 7.2 NEUTROPHILS -- -- -- -- See manual differential -- 2.81 -- 3.21 SeeComment -- -- 6.42 PLT 253 -- 254 -- 292 < > 181 -- 178 166 -- -- 182 NA 135 -- 134 L -- 138 < > 130 L -- 127 L 128 L 124 L < > 124 L KPLASMA 4.0 -- 3.9 -- 3.9 < > -- -- -- -- -- -- 4.7 KBLOOD -- -- -- -- -- -- -- -- -- -- 4.7 -- -- KSERUM -- -- -- -- -- -- 3.8 -- 4.0 3.8 -- -- -- MG -- -- -- -- 2.3 -- -- 2.3 -- -- -- -- -- GLUCOSE CANCELED 109 H 96 CANCELED -- 110 < > 131 -- 228 H 216 H -- < > 435 Crit H HGBA1C -- -- -- 5.6 -- -- -- -- -- 7.4 H -- -- -- BUN 34 H -- 30 H -- 45 H < > 63 H -- 58 H 45 H -- < > 35 H CREATININE 3.95 H -- 4.08 H -- 4.03 H < > 4.41 H -- 4.13 H 3.39 H -- < > 2.48 H ALKPHOS 128 -- 117 -- 107 < > -- -- -- 86 -- -- 101 AST 27 -- 25 -- 21 < > -- -- -- 14 -- -- 17 ALT 21 -- 17 -- 17 < > -- -- -- 17 -- -- 21 BILITOT 0.3 -- 0.4 -- 0.3 < > -- -- -- 0.2 -- -- 0.5 BILIDIR -- -- -- -- <0.2 -- -- -- -- -- -- -- <0.2 PT -- -- -- 11.1 -- -- -- -- -- -- -- -- -- INR -- -- -- 1.0 -- -- -- -- -- -- -- -- -- ALBUMIN 4.2 -- 4.1 -- 4.2 < > 3.7 -- 3.5 3.4 L -- -- 3.5 < > = values in this interval not displayed. Serologies: Recent Labs 12/26/21 0807 12/19/21 0835 12/03/21 0756 11/28/21 0819 CMVQUANT 313 A <35 A Undetected Undetected No results for input(s): EBVDNADETQUP, EBVDNADETQUA, EBVQU, EBVCOPIES, EBVPCRQUANT in the last 2190 hours. No lab exists for component: SEBV Recent Labs 12/05/21 0722 HEPBANTSCRN Negative HEPBSABSCRN Positive HEPBCABSCRN Negative Immunosuppression Goal Range: 1.5-4 Current Lab Frequency: weekly Please advise on any changes or recommendations. ThanksYolie R.N. *All labs are now found in [facility] - Lab - Flowsheets. For further review of labs, please review there or under Synopsis* documented in this encounter Plan of Treatment Upcoming Encounters Date Type Specialty Care Team Description 04/24/2022 Appointment Laboratory Medicine Angélica Granger P.A.-C. [address] [place] [phone] 04/25/2022 Office Visit Otorhinolaryngology Dex Matta APRN, C.N.P., M.S.N. [address] [place] [phone] 05/08/2022 Appointment Laboratory Medicine Angélica Granger P.A.-C. [address] [place] [phone] 05/08/2022 Clinical Admitting/Central Communication Scheduling 05/10/2022 Appointment Radiology Jeremie Rose M.D. [address] [place] [phone] 05/10/2022 Comprehensive Visit Orthopedic Surgery Warner Graves M.D. [address] [place] [phone] 05/22/2022 Appointment Laboratory Medicine Angélica Granger P.A.-C. [address] [place] [phone] 06/05/2022 Appointment Laboratory Medicine Angélica Granger P.A.-C. [address] [place] [phone] 06/19/2022 Appointment Laboratory Medicine Angélica Granger P.A.-C. [address] [place] [phone] 07/03/2022 Appointment Laboratory Medicine Angélica Granger P.A.-C. [address] [place] [phone] 07/17/2022 Appointment Laboratory Medicine Angélica Granger P.A.-C. [address] [place] [phone] 07/31/2022 Appointment Laboratory Medicine Angélica Granger P.A.-C. [address] [place] [phone] 08/14/2022 Appointment Laboratory Angélica Royal P.A.-C. [address] [place] [phone] 08/28/2022 Appointment Laboratory Medicine Angélica Granger P.A.-C. [address] [place] [phone] documented as of this encounter Visit Diagnoses Diagnosis Transplant Liver (HCC) Medication Therapy Fci Not Anticoa gulant Infection Cytomegalovirus (HCC) documented in this encounter Additional Health Concerns Assessment Noted Time PHQ-9 Depression Total Score: 4 11/28/2020 10:17 AM CD T documented as of this encounter Care Teams Cigarette Machine Filler Relationship Specialty Start Date End Date Elsewhere, Pcp PCP - General Family Medicine 07/29/17 [facility] - Laboratory Medicine 04/12/20 [place] [phone] documented as of this encounter
--- OUTSIDE RECORDS SUMMARY | 2022-04-13 11:56 | XMS_ITS | Encounter Summary ---
:1955 Author Organization [facility] Address [address] [place] [address] Care Team Providers Name Role Phone Elsewhere, Pcp Primary Care Provider Unavailable Encounter Details Date Type Department Care Team Description 01/02/2022 Hospital Encounter Department of Angélica Granger ant Liver (HCC); Laboratory Medicine J PDemetriusADurgaC. Medication Therapy Shelter Not Anticoa gulant in [address] [phone] [place], [place] [phone] (Work) [phone] Social History Tobacco Use Types Packs/Day Years [...] or relatives? How often do you attend worship or More than 4 times per year 12/15/2021 restorationism services? 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 ondansetron (ZOFRAN) 4 Take 1 tablet (4 [...] or open Cytomegalovirus (HCC), capsules. Medication Therapy Golf Club Weighter Not Anticoagulant sulfamethoxazole-trimeth Take 1 tablet by 30 tablet 0 12/1001/09/2022 oprim (BACTRIM,SEPTRA) mouth daily. Take 400-80 mg per tablet at bedtime, after dialysis. tacrolimus (PROGRAF) 0.5 Take 1 capsule (0.5 90 capsule 3 03/15/2022 mg capsuleIndications: mg total) by mouth Transplant Liver (HCC), daily. Medication Therapy Shelter Not Anticoagulant torsemide (DEMADEX) 10 Take 3 [...] Appointment Laboratory Medicine Angélica Granger P.A.-C. 200 [place] [phone] 04/25/2022 Office Visit Otorhinolaryngology Dex Matta APRN, C.N.P., M.S.N. 200 [place] [phone] 05/08/2022 Appointment Laboratory Medicine Angélica Granger P.A.-C. [address] [place] [phone] 05/08/2022 Clinical Admitting/Central Communication Scheduling 05/10/2022 Appointment Radiology Jeremie Rose M.D. [address] [place] [phone] 05/10/2022 Comprehensive Visit Orthopedic Surgery Warner Graves M.D. [address] [place] [phone] 05/22/2022 Appointment Laboratory Medicine Angélica Granger P.A.-C. [address] [place] [phone] 06/05/2022 Appointment Laboratory Medicine Angélica Granger P.A.-C. [address] [place] [phone] 06/19/2022 Appointment Laboratory Medicine Angélica Granger P.A.-C. [address] [place] [phone] 07/03/2022 Appointment Laboratory Medicine Angélica Granger P.A.-C. [address] [place] [phone] 07/17/2022 Appointment Laboratory Medicine Angélica Granger P.A.-C. [address] [place] [phone] 07/31/2022 Appointment Laboratory Medicine Angélica Granger P.A.-C. [address] [place] [phone] 08/14/2022 Appointment Laboratory Medicine Angélica Granger P.A.-C. [address] [place] [phone] 08/28/2022 Appointment Laboratory Medicine Angélica Granger P.A.-C. [address] [place] [phone] documented as of this encounter Procedures Procedure Name Priority Date/Time Associated Diagnosis Comme nts CMV DNA DETECT/QUANT, Routine 01/02/2022 8:02 Transplant Liver Results for this P AM CDT (HCC) procedure are in Medication Therapy the resul ts [employer] Weighter Not section. Anticoagulant TACROLIMUS LEVEL, B Routine 01/02/2022 8:02 Transplant Liver R esults for this AM CDT (HCC) procedure are in Medication Therapy the resul ts Shelter Not section. Anticoagulant CBC WITHOUT Routine 01/02/2022 8:02 Transplant Liver Results for this DIFFERENTIAL, B AM CDT (HCC) procedure are in Medication Therapy the resul ts Shelter Not section. Anticoagulant GLUCOSE, FASTING, S/P Routine 01/02/2022 8:02 Transplant Liver Results for this AM CDT (HCC) procedure are in Medication Therapy the resul ts [employer] Weighter Not section. Anticoagulant COMPREHENSIVE Routine 01/02/2022 8:02 Transplant Liver Results for this METABOLIC PANEL, S/P AM CDT (HCC) procedure are in Medication Therapy the resul ts Shelter Not section. Anticoagulant documented in this encounter Results (ABNORMAL) Tacrolimus, B (01/02/2022 8:02 AM CDT) P athologist Signature Tacrolimus, B 3.1 (L) 5.0-15.0 01/03/2022 SDSC (Trough) 10:29 AM CDT ng/mL Comment: ----ADDITIONAL INFORMATION---- Target steady-state trough concentration s vary depending on the type of transplant, concomitant immunosuppressio n, clinical/institutional protocols, and time post-transplant. Results should be interpreted in conjunction with this clinical information and any physic al signs/symptoms of rejection/toxicity. Testing performed by [employer] [facility]-Tandem Mass Spectrometry (LC-MS/MS). This test was developed and its performa nce characteristics determined by [facility] in a manner consistent with CLIA requirements. This test has not been cleared or approved by the U.S. Mer d and Drug Administration. Specimen Anatomical Collection Method Collection Time Receive d Time (Source) Location / / Volume Laterality Blood (Blood, 01/02/2022 8:02 AM 01/04/20 6:56 Venous) CDT AM CDT Angélica Granger P.A.-C. LAB BLOOD NON ADD-ON Performing Organization Address City/[facility] Phon e Number [facility] [address] [place], [place] [address] [facility] [place] [address] Laboratory Medicine and Pathology [address] [place] [address] Dr. M[place]ILLO (ABNORMAL) CMV DNA Detect / Quant, Plasma (01/02/2022 8:02 AM CDT) Patholo gist Method Time Signature CMV DNA 65 (A) Undetected 01/03/2022 [facility] Detect/Quant, IU/mL 2:16 PM CDT P Comment: Result in log IU/mL is 1.81. ----ADDITIONAL INFORMATION---- The quantification range of this assay i s 35 to 10,000,000 IU/mL (1.54 log to 7.00 log IU/mL). Testing was performed u sing the tika CMV test ([employer] with the tika 6800 System. Specimen Anatomical Collection Method Collection Time Receive d Time (Source) Location / / Volume Laterality Blood (Blood, 01/02/2022 8:02 AM 01/04/20 22 7:09 Venous) CDT AM CDT Angélica Granger P.A.-C. LAB MICROBIOLOGY - BLOOD ORD ERABLES Performing Organization Address City/[facility]/ZIP Code Phon e Number [facility] [address] [place], [place] [address] SUPPORT CENTER [facility] [place] [address] Laboratory Medicine and Pathology [address] [place] [address] Dr. [place]O (ABNORMAL) Glucose, Fasting (01/02/2022 8:02 AM CDT) athologist Signature Glucose, P 106 (H) 70 - 100 01/02/2022 [facility] mg/dL 8:31 AM CDT Last Intake 12 hr 01/02/2022 [facility] 8:02 AM CDT Specimen Anatomical Collection Method Collection Time Receive d Time (Source) Location / / Volume Laterality Blood (Blood, 01/02/2022 8:02 AM 01/03/20 8:03 Venous) CDT AM CDT Angélica Granger P.A.-C. LAB BLOOD NON ADD-ON Performing Organization Address City/State/ZIP Code Phon e Number [facility]- [address] [place] [address] [facility] [place] [address] System [address] (ABNORMAL) Comprehensive Metabolic Panel (01/02/2022 8:02 AM CDT) Analysis Performed At Patho logist Time Signature Potassium, P 4.4 3.6 - 5.2 01/02/2022 [facility] mmol/L 8:36 AM CDT Sodium, P 137 135 - 145 01/02/2022 [facility] mmol/L 8:36 AM CDT Chloride, P 101 98 - 107 01/02/2022 [facility] mmol/L 8:36 AM CDT Bicarbonate, P 25 22 - 29 01/02/2022 [facility] mmol/L 8:36 AM CDT Anion Gap, P 11 7 - 15 01/02/2022 [facility] 8:36 AM CDT BUN (Blood Urea 28 (H) 8 - 24 01/02/2022 [facility] Nitrogen), P mg/dL 8:36 AM CDT Creatinine 3.85 (H) 0.74 - 01/02/2022 [facility] 1.35 mg/dL 8:36 AM CDT eGFR-Black/Afri 18 (L) >=60 01/02/2022 [facility] can Maltese mL/min/BSA 8:36 AM CDT Comment: ----ADDITIONAL INFORMATION---- Estimated GFR calculated using the 2009 CKD_EPI creatinine equation. eGFR Non-Black/ 15 (L) >=60 mL/min/BSA 01/02/2022 8:36 AM CDT [facility] Maltese Comment: ----ADDITIONAL INFORMATION---- Estimated GFR calculated using the 2009 CKD_EPI creatinine equation. Calcium, Total, P 8.9 8.8 - 10.2 mg/dL 01/02/2022 8:36 AM CDT CN[facility] Glucose, P CANCELED mg/dL 01/02/2022 8:03 AM CDT CNFL Comment: Duplicate test request. Result canceled by the ancillary. Protein, Total, P 6.3 6.3 - 7.9 g/dL 01/02/2022 8:36 A M CDT CN[facility] Albumin, P 4.0 3.5 - 5.0 g/dL 01/02/2022 8:36 AM CDT C NFL Aspartate Aminotransferase 24 8 - 48 U/L 01/02/2022 8 :36 AM CDT [facility] (AST), P Alkaline Phosphatase, P 146 (H) 40 - 129 U/L 01/02/2022 8: 36 AM CDT CN[facility] Alanine Aminotransferase 20 7 - 55 U/L 01/02/2022 8:3 6 AM CDT CN[facility] (ALT), P Bilirubin, Total, P 0.3 <=1.2 mg/dL 01/02/2022 8:36 AM CDT CNFL Specimen Anatomical Collection Method Collection Time Receive d Time (Source) Location / / Volume Laterality Blood (Blood, 01/02/2022 8:02 AM 01/03/20 8:03 Venous) CDT AM CDT Angélica Granger P.A.-C. LAB BLOOD ADD-ON Performing Organization Address City/State/ZIP Code Phon e Number [id number] [place] [address] [place] [address] System [address] (ABNORMAL) CBC without Differential (01/02/2022 8:02 AM CDT) [facility] gist Method Time Signature Hemoglobin 10.8 (L) 13.2 - 01/02/2022 [facility] 16.6 g/dL 8:32 AM CDT Hematocrit 34.4 (L) 38.3 - 01/02/2022 [facility] 48.6 % 8:32 AM CDT Erythrocytes 3.27 (L) 4.35 - 01/02/2022 [facility] 5.65 8:32 AM CDT x10(12)/L MCV 105.2 (H) 78.2 - 01/02/2022 [facility] 97.9 fL 8:32 AM CDT RBC Distrib Width 12.7 11.8 - 01/02/2022 [facility] 14.5 % 8:32 AM CDT Platelet Count 256 135 - 317 01/02/2022 [facility] x10(9)/L 8:32 AM CDT Leukocytes 3.9 3.4 - 9.6 01/02/2022 [facility] x10(9)/L 8:32 AM CDT Specimen Anatomical Collection Method Collection Time Receive d Time (Source) Location / / Volume Laterality Blood (Blood, 01/02/2022 8:02 AM 01/03/20 8:03 Venous) CDT AM CDT Angélica Granger P.A.-C. LAB BLOOD ADD-ON Performing Organization Address City/State/[facility] Code Phon e Number [address] [address] [facility] [place] [address] System [address] documented in this encounter Visit Diagnoses Diagnosis Transplant Liver (HCC) Medication Therapy Golf Club Weighter Not Anticoa gulant documented in this encounter Additional Health Concerns Assessment Noted Time PHQ-9 Depression Total Score: 4 11/28/2020 10:17 AM CD T documented as of this encounter Care Teams Construction Operations Manager Relationship Specialty Start Date End Date Elsewhere, Pcp PCP - General Family Medicine 07/29/17 [facility] - Laboratory Medicine 04/12/20 [place] [phone] documented as of this encounter
--- OUTSIDE RECORDS SUMMARY | 2022-04-13 11:56 | XMS_ITS | Encounter Summary ---
:1955 Author Organization [facility] Address [address] [place] [address] Care Team Providers Name Role Phone Elsewhere, Pcp Primary Care Provider Unavailable Encounter Details Date Type Department Care Team Description 01/02/2022 Orders Only Trung Swenson [facility] iectasis ([facility]) Center for J, P.A.-C., (Primary Dx) Transplantation and M.S. Clinical Regeneration in [address] [place] [phone] [place] [address] [phone] Social History Tobacco Use Types Packs/Day Years [...] or relatives? How often do you attend yazidi or More than 4 times per year 12/15/2021 anabaptist services? Do you belong to any clubs or No 12/15/2021 organizations such as yazidi groups, unions, fraternal or athletic groups, or [...] at Date Recorded Male 05/16/2020 4:27 PM [facility] documented as of this encounter Plan of Treatment Upcoming Encounters Date Type Specialty Care Team Description 04/24/2022 Appointment Laboratory Medicine Angélica Granger, P.A.-C. [address] [place] [phone] 04/25/2022 Office Visit Otorhinolaryngology Dex Matta, AERONAUTICAL PRODUCTS SALES ENGINEER, C.N.P., M.S.N. [address] [place] [phone] 05/08/2022 Appointment Laboratory Medicine Angélica Granger, P.A.-C. [address] [place] [phone] 05/08/2022 Clinical Admitting/Central Communication Scheduling 05/10/2022 Appointment Radiology Jeremie Rose M.D. [address] [place] [phone] 05/10/2022 Comprehensive Visit Orthopedic Surgery Warner Graves M.D. [address] [place] [phone] 05/22/2022 Appointment Laboratory Medicine Angélica Granger P.A.-C. [address] [place] [phone] 06/05/2022 Appointment Laboratory Medicine Angélica Granger P.A.-C. [address] [place] [phone] 06/19/2022 Appointment Laboratory Medicine Angélica Granger P.A.-C. [address] [place] [phone] 07/03/2022 Appointment Laboratory Medicine Angélica Granger P.A.-C. [address] [place] [phone] 07/17/2022 Appointment Laboratory Medicine Angélica Granger P.A.-C. [address] [place] [phone] 07/31/2022 Appointment Laboratory Medicine Angélica Granger P.A.-C. [address] [place] [phone] 08/14/2022 Appointment Laboratory Medicine Angélica Granger P.A.-C. [address] [place] [phone] 08/28/2022 Appointment Laboratory Medicine Angélica Granger P.A.-C. [address] [place] [phone] documented as of this encounter Results Mycobacterial Culture (01/21/2022 8:58 AM CDT) [facility] Method Time Signature Mycobacterial No growth 03/04/2022 DTL Culture after 42 1:01 PM CDT days of incubation . Specimen Anatomical Collection Method Collection Time Receive d Time (Source) Location / / Volume Laterality Sputum (Sputum) 01/21/2022 8:58 AM 2021 9:57 CDT AM CDT Comment: Specimen Source Site: Sputum Trung Plasencia P.A.-C., M.S. LAB MICROBIOLOGY - GENERAL ORDERABLES Performing Organization Address [facility] Phon e Number [facility] - 200 [place], [place] [address] [place] [address] Laboratories-[address] Acid Fast Smear For Mycobacterium (01/21/2022 8:58 AM CDT) [employer] Method Time Signature Acid Fast Smear Negative. 01/21/2022 DTL For Mycobacterium 10:33 PM CDT Specimen Anatomical Collection Method Collection Time Receive d Time (Source) Location / / Volume Laterality Sputum (Sputum) 01/21/2022 8:58 AM 2021 9:57 CDT AM CDT Comment: Specimen Source Site: Sputum Trung Plasencia P.A.-C., M.S. LAB MICROBIOLOGY - GENERAL ORDERABLES Performing Organization Address City/[facility] Phon e Number [facility] - [address] [place] [address] [place] [address] (ABNORMAL) Fungal Culture, Routine (01/21/2022 8:58 AM CDT) [employer] Method Time Signature Fungal Mixed Fungal 02/14/2022 [...] MICROBIOLOGY - GENERAL ORDERABLES Performing Organization Address City/[facility] Phon e Number [facility] - 200 [place] [address] 05 [place] [address] Laboratories-[address] Fungal Smear (01/21/2022 8:58 AM CDT) P athologist Signature Fungal Smear Negative. 01/21/2022 DTL 1:38 PM CDT Specimen Anatomical Collection Method Collection Time Receive d Time (Source) Location / / Volume Laterality Sputum (Sputum) 01/21/2022 8:58 AM 2021 9:57 CDT AM CDT Comment: Specimen Source Site: Sputum Trung Plasencia P.A.-C., M.S. LAB MICROBIOLOGY - GENERAL ORDERABLES Performing Organization Address City/[facility] Phon e Number [facility] - 200 [place], [place] [address] [place], [place] [phone] [place] [address] (ABNORMAL) Bacterial Culture, Aerobic + Susc, Resp [...] Organization Address City/State/ZIP Code Phon e Number [facility] - 200 [place], [place] [address] [place] [address] Laboratories-[facility] 200 [facility] Gram Stain (01/21/2022 8:58 AM CDT) [facility] gist Method Time Signature Gram Stain Upper [...] Organization Address City/State/ZIP Code Phon e Number [address] [address] [place] [address] documented in this encounter Visit Diagnoses Diagnosis Bronchiectasis (HCC) - Primary documented in this encounter Additional Health Concerns Assessment Noted Time PHQ-9 Depression Total Score: 4 11/28/2020 10:17 AM CD T documented as of this encounter Care Teams Systems Project Manager Relationship Specialty Start Date End Date Elsewhere, Pcp PCP - General Family Medicine 07/29/17 [facility] - Laboratory Medicine 04/12/20 [place] [phone] documented as of this encounter
--- OUTSIDE RECORDS SUMMARY | 2022-04-13 11:56 | XMS_ITS | Encounter Summary ---
:[address] [facility] Address [address] [place] [address] Care Team Providers Name Role Phone Elsewhere, Pcp Primary Care Provider Unavailable Reason for Referral Transplant (Routine) - Closed Specialty Diagnoses / Procedures Referred By Contact Refer red To Contact Transplant Surgery / Diagnoses Transplant Liver (HCC) Medication Therapy Turpentine Distiller Not Anticoagulant Pneumonia Aspergillus (HCC) Trung Plasencia, [facility] Transplant Jennifer., M.S. [address] [place] [address] Referral ID Status Reason Start Date Expiration Date Visits Requ ested Visits Authorized [id number] Closed 12/28/2021 12/28/2022 1 1 Scheduling Instructions Please schedule after sputum culture and Chest CT SPECIAL- please schedule cultures, then CT then Inf Dis visit. Thanks MRI/CAT/PET Scan (Routine) - Closed Specialty Diagnoses / Procedures Referred By Contact Refer red To Contact Radiology Diagnoses Transplant Liver (HCC) Medication Therapy Turpentine Distiller Not Anticoagulant Pneumonia Aspergillus (HCC) Trnug Plasencia P.A.-C., [facility] Procedures CT Chest without IV Contrast M.S. [address] [place], [place] [phone] Referral ID Status Reason Start Date Expiration Date Visits Requ ested Visits Authorized [id number] Closed 12/28/2021 12/28/2022 1 1 Encounter Details Date Type Department Care Team Description 12/28/2021 Clinical Communication Irena Gamez [facility] for R, R.N. Transplantation and [address] [place] [address] Clinical Regeneration in [place], [place] [address] [place] [address] [place] [address] (Work) [phone] Social History Tobacco Use Types Packs/Day Years [...] or relatives? How often do you attend taoist or More than 4 times per year 12/15/2021 mandaeism services? 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 - 01/02/2022 9:15 AM CDT Addended by: ROMAN DUBOIS on: 01/02/2022 09:15 AM Modules accepted: Orders Telephone Encounter - Meena Aguilar - 01/01/2022 3:00 PM CDT Su Urbano, Sorry if the screen shot is huge on here. This is what I get when I go to schedule. Telephone Encounter - Meena Aguilar - 01/01/2022 3:00 PM CDT Images from the original note were not included. Telephone Encounter - Roman Dubois R.N. - 01/01/2022 1:16 PM CDT Images from the original note were not included. Telephone Encounter - Roman Dubois R.N. - 12/28/2021 2:29 PM CDT Orders placed for Cultures, Chest CT and Infectious disease consult. Telephone Encounter - Roman Dubois R.N. - 12/28/2021 2:02 PM CDT ----- Message from Trung Plasencia P.A.-C., M.S. sent at 12/25/2021 4:30 PM CDT ----- Regarding: RE: When to repeat CT? Sorry about that Roman. Lets do 6 weeks and split the difference. Thanks. Trung ----- Message ----- From: Roman Dubois R.N. Sent: 12/25/2021 3:53 PM CDT To: Trung Plasencia P.A.-C., M.SDemetrius Subject: When to repeat CT? Diaz Nino, You saw Kiara on December 10 of this year. Per your note you advised a repeat CT scan at 2 different time intervals.: 12. Repeat CT chest in 6-8 weeks. 13. Obtain sputum for bacterial and fungal culture in 1 month. 14. If repeat CT chest in one month is stable to improved, can proceed to activate for kidney transplant. I am wondering whether you would like him to repeat the CT scan at 1 month (January 09) or at the 6-8week alejandro (January 23-). I figured since it would possibly effect how quickly he could be listedfor kidney transplant I should clarify before placing orders. Please advise. Roman Rasheed documented in this encounter Plan of Treatment Upcoming Encounters Date Type Specialty Care Team Description 04/24/2022 Appointment Laboratory Medicine Angélica Granger P.A.-C. [address] [place] [phone] 04/25/2022 Office Visit Otorhinolaryngology Dex Matta, RAMONA, C.N.P., M.S.N. [address] [place] [phone] 05/08/2022 Appointment Laboratory Medicine Angélica Granger P.A.-C. [address] [place] [phone] 05/08/2022 Clinical Admitting/Central Communication Scheduling 05/10/2022 Appointment Radiology Jeremie Rose M.D. [address] [place] [phone] 05/10/2022 Comprehensive Visit Orthopedic Surgery Warner Graves M.D. [address] [place] [phone] 05/22/2022 Appointment Laboratory Medicine Angélica Granger P.A.-C. [address] [place] [phone] 06/05/2022 Appointment Laboratory Medicine Angélica Granger P.A.-C. [address] [place] [phone] 06/19/2022 Appointment Laboratory Medicine Angélica Granger P.A.-C. [address] [place] [phone] 07/03/2022 Appointment Laboratory Medicine Angélica Granger P.A.-C. [address] [place] [phone] 07/17/2022 Appointment Laboratory Medicine Angélica Granger P.A.-C. [address] [place] [phone] 07/31/2022 Appointment Laboratory Medicine Angélica Granger P.A.-C. [address] [place] [phone] 08/14/2022 Appointment Laboratory Medicine Angélica Granger P.A.-C. [address] [place] [phone] 08/28/2022 Appointment Laboratory Medicine Angélica Granger P.A.-C. [address] [place] [address] [place] [phone] Scheduled Orders Name Type Priority Associated Diagnoses Order S chedule Bacterial Culture, Microbiology Routine Transplant Li gerry ([facility]) Expected: Aerobic + Susc, Resp Medication Therapy L julia 01/21/2022 Term Not Anticoa gulant (Approximate), Pneumonia Aspergillus s: 03/30/2023 ([facility]) Fungal Culture, Microbiology Routine Transplant Liver ([facility]) Expected: Routine Medication Therapy Long 06/2021 Term Not Anticoa gulant (Approximate), Pneumonia Aspergillus s: 03/30/2023 ([facility]) Bacterial Culture, Microbiology Routine Transplant Li gerry ([facility]) Expected: Aerobic + Susc, Resp Medication Therapy L julia 01/21/2022 Term Not Anticoa gulant (Approximate), Pneumonia Aspergillus s: 04/04/2023 ([facility]) Fungal Culture, Microbiology Routine Transplant Liver ([facility]) Expected: Routine Medication Therapy Long 06/2021 Term Not Anticoa gulant (Approximate), Pneumonia Aspergillus s: 04/04/2023 ([facility]) Scheduled Referrals Name Type Priority Associated Diagnoses Order S chedule Transplant Liver Outpatient Referral Routine Transplant Liver Expected: office visit ([facility]) 01/21/2022 (clinic) Medication Therapy (Approxim ate), Turpentine Distiller Not Expires: Anticoagulant 03/30/2023 Pneumonia Aspergillus (HCC) documented as of this encounter Results CT [...] encounter Visit Diagnoses Diagnosis Transplant Liver (HCC) - Primary Medication Therapy Detention Not Anticoa gulant Pneumonia Aspergillus (HCC) Transplant Liver (HCC) Medication Therapy Detention Not Anticoa gulant Pneumonia Aspergillus (HCC) documented in this encounter Additional Health Concerns Assessment Noted Time PHQ-9 Depression Total Score: 4 11/28/2020 10:17 AM CD T documented as of this encounter Care Teams Compliance Officer Relationship Specialty Start Date End Date Elsewhere, Pcp PCP - General Family Medicine 07/29/17 [facility] - Laboratory Medicine 04/12/20 [place] [phone] documented as of this encounter
--- OUTSIDE RECORDS SUMMARY | 2022-04-13 11:56 | XMS_ITS | Encounter Summary ---
:1955 Author Organization [facility] Address [address] [place] [address] Care Team Providers Name Role Phone Elsewhere, Pcp Primary Care Provider Unavailable Encounter Details Date Type Department Care Team Description 01/04/2022 Ancillary Procedure Department of Dermatology Social History [...] or relatives? How often do you attend adventism or More than 4 times per year 12/15/2021 buddhism services? 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 [address] [place] [phone] 04/25/2022 Office Visit Otorhinolaryngology Dex Matta APRN, C.N.P., M.S.N. [address] [place] [phone] 05/08/2022 Appointment Laboratory Medicine Angélica Granger P.A.-CDemetrius [address] [place] [phone] 05/08/2022 Clinical Admitting/Central Communication Scheduling 05/10/2022 Appointment Radiology Jeremie Rose M.D. [address] [place] [phone] 05/10/2022 Comprehensive Visit Orthopedic Surgery Warner Graves M.D. [address] [place] [phone] 05/22/2022 Appointment Laboratory Medicine Angélica Granger P.A.-CDemetrius [address] [place] [phone] 06/05/2022 Appointment Laboratory Medicine Angélica Granger P.A.-CDemetrius [address] [place] [phone] 06/19/2022 Appointment Laboratory Medicine Angélica Granger P.A.-C. [address] [place] [phone] 07/03/2022 Appointment Laboratory Medicine Angélica Granger P.A.-C. [address] [place] [phone] 07/17/2022 Appointment Laboratory Medicine Angélica Granger P.A.-C. [address] [place] [phone] 07/31/2022 Appointment Laboratory Medicine Angélica Granger P.A.-C. [address] [place] [phone] 08/14/2022 Appointment Laboratory Medicine Angélica Granger P.A.-C. [address] [place] [phone] 08/28/2022 Appointment Laboratory Medicine Angélica Granger P.A.-C. [address] [place] [phone] documented as of this encounter Procedures Procedure Name Priority Date/Time Associated Comments Diagnosis DERMATOLOGY IMAGE Routine 01/04/2022 12:05 Result s for this EXAM AM CDT procedure are i n the results section. documented in this encounter Results ear, right conchal bowl 124 Mohs micrographic surgery-Dermatology Image Exam (01/04/2022 12:05 AM CDT) Specimen (Source) Anatomical Location Collection Method / Collectio n Time Received Time / Laterality Volume Narrative IIMS - 01/04/2022 4:21 PM CDT This order has been created [...] documented as of this encounter Care Teams Accounting Auditor Relationship Specialty Start Date End Date Elsewhere, Pcp PCP - General Family Medicine 07/29/17 [facility] - Laboratory Medicine 04/12/[address] [address] documented as of this encounter
--- OUTSIDE RECORDS SUMMARY | 2022-04-13 11:56 | XMS_ITS | Encounter Summary ---
:1955 Author Organization [facility] Address [address] [place] [phone] Care Team Providers Name Role Phone Elsewhere, Pcp Primary Care Provider Unavailable Reason for Visit Reason Comments Labs Only Encounter Details Date Type Department Care Team Description 12/20/2021 Clinical Communication Irena Gamez [facility] for R, R.N. Transplantation and [address] [place] [address] Clinical Regeneration in [place], [place] [phone] [place] [address] [place] [address] (Work) [phone] Social History Tobacco Use Types Packs/Day Years [...] More than 4 times per year 12/15/2021 yarsani services? 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 - 12/21/2021 1:02 PM CDT Addended by: JESSIKA BETANCOURT on: 12/21/2021 01:02 PM Modules accepted: Orders Telephone Encounter - Jessika Betancourt R.N. - 12/21/2021 1:01 PM CDT Current dose 1 mg BID New dose 0.5 mg BID Repeat lab testing in [address] Wan Telephone Encounter - Yolie Dubois R.N. - 12/20/2021 3:35 PM CDT Please review labs below. Bruce [...] Recent Dose Changes: Tacrolimus 1 mg BID Mycophenolate 500 mg BID (Decreased to 250 mg BID 10/11) Prednisone 5 mg daily Labs: Recent Labs 12/19/21 0835 12/03/21 0756 11/28/21 0819 11/21/21 0802 11/14/21 0732 11/07/21 0831 TACROLIMUS 7.8 1.6 L 2.0 L <1.0 L <1.0 L <1.0 L Recent Labs 12/19/21 0836 12/19/21 0835 12/03/21 0756 12/03/21 0755 11/28/21 0819 10/17/21 0838 10/15/21 0808 10/15/21 0439 10/14/21 0447 10/13/21 0519 10/12/21 1612 10/12/21 1451 10/12/21 1451 HGB -- 10.3 L -- 9.8 L 9.5 L < > 8.2 L -- 7.9 L 8.0 L -- -- 8.8 L HCT -- 32.5 L -- 31.1 L 29.7 L < > 24.9 L -- 24.1 L 24.7 L 25.0 L -- 27.0 L WBC -- 4.1 -- 3.9 5.6 < > 3.9 -- 4.4 4.4 -- -- 7.2 NEUTROPHILS -- -- -- See manual differential -- -- 2.81 -- 3.21 SeeComment -- -- 6.42 PLT -- 254 -- 292 294 < > 181 -- 178 166 -- -- 182 NA -- 134 L -- 138 134 L < > 130 L -- 127 L 128 L 124 L < > 124 L KPLASMA -- 3.9 -- 3.9 4.2 < > -- -- -- -- -- -- 4.7 KBLOOD -- -- -- -- -- -- -- -- -- -- 4.7 -- -- KSERUM -- -- -- -- -- -- 3.8 -- 4.0 3.8 -- -- -- MG -- -- -- 2.3 -- -- -- 2.3 -- -- -- -- -- GLUCOSE 96 CANCELED -- 110 CANCELED 109 H < > 131 -- 228 H 216 H -- < > 435 Crit H HGBA1C -- -- 5.6 -- -- -- -- -- -- 7.4 H -- -- -- BUN -- 30 H -- 45 H 37 H < > 63 H -- 58 H 45 H -- < > 35 H CREATININE -- 4.08 H -- 4.03 H 3.50 H < > 4.41 H -- 4.13 H 3.39 H -- < > 2.48 H ALKPHOS -- 117 -- 107 102 < > -- -- -- 86 -- -- 101 AST -- 25 -- 21 18 < > -- -- -- 14 -- -- 17 ALT -- 17 -- 17 18 < > -- -- -- 17 -- -- 21 BILITOT -- 0.4 -- 0.3 0.2 < > -- -- -- 0.2 -- -- 0.5 BILIDIR -- -- -- <0.2 -- -- -- -- -- -- -- -- <0.2 PT -- -- 11.1 -- -- -- -- -- -- -- -- -- -- INR -- -- 1.0 -- -- -- -- -- -- -- -- -- -- ALBUMIN -- 4.1 -- 4.2 4.0 < > 3.7 -- 3.5 3.4 L -- -- 3.5 < > = values in this interval not displayed. Serologies: Recent Labs 12/19/21 0835 12/03/21 0756 11/28/21 0819 11/21/21 0802 CMVQUANT <35 A Undetected Undetected <35 A No results for input(s): EBVDNADETQUP, EBVDNADETQUA, EBVQU, EBVCOPIES, EBVPCRQUANT in the last 2190 hours. No lab exists for component: SEBV Recent Labs 12/05/21 0722 HEPBANTSCRN Negative HEPBSABSCRN Positive HEPBCABSCRN Negative Immunosuppression Goal Range: 1.5-4 Current Lab Frequency: weekly Please advise on any changes or recommendations. Thanks, Yolie Dubois R.N. *All labs are now found in [employer] - Lab - Flowsheets. For further review of labs, please review there or under Synopsis* documented in this encounter Plan of Treatment Upcoming Encounters Date Type Specialty Care Team Description 04/24/2022 Appointment Laboratory Medicine Angélica Granger, P.A.-C. [address] [place] [phone] 04/25/2022 Office Visit Otorhinolaryngology Dex Matta APRN, C.N.P., M.S.N. [address] [place] [phone] 05/08/2022 Appointment Laboratory Medicine Angélica Granger, P.A.-C. [address] [place] [phone] 05/08/2022 Clinical Admitting/Central Communication Scheduling 05/10/2022 Appointment Radiology Jeremie Rose M.D. [address] [place] [phone] 05/10/2022 Comprehensive Visit Orthopedic Surgery Warner Graves M.D. [address] [place] [phone] 05/22/2022 Appointment Laboratory Medicine Angélica Granger P.A.-C. [address] [place] [phone] 06/05/2022 Appointment Laboratory Medicine Angélica Granger P.A.-C. [address] [place] [phone] 06/19/2022 Appointment Laboratory Medicine Angélica Granger P.A.-C. [address] [place] [phone] 07/03/2022 Appointment Laboratory Medicine Angélica Granger P.A.-C. [address] [place] [phone] 07/17/2022 Appointment Laboratory Medicine Angélica Granger P.A.-C. [address] [place] [phone] 07/31/2022 Appointment Laboratory Medicine Angélica Granger P.A.-C. [address] [place] [phone] 08/14/2022 Appointment Laboratory Angélica Royal P.A.-C. [address] [place] [phone] 08/28/2022 Appointment Laboratory Medicine Angélica Granger P.A.-C. [address] [place] [phone] documented as of this encounter Visit Diagnoses Diagnosis Transplant Liver (HCC) Medication Therapy Fdc Not Anticoa gulant documented in this encounter Additional Health Concerns Assessment Noted Time PHQ-9 Depression Total Score: 4 11/28/2020 10:17 AM CD T documented as of this encounter Care Teams Timber Mill Worker Relationship Specialty Start Date End Date Elsewhere, Pcp PCP - General Family Medicine 07/29/17 [facility] - Laboratory Medicine 04/12/[address] [address] documented as of this encounter
--- OUTSIDE RECORDS SUMMARY | 2022-04-13 11:56 | XMS_ITS | Encounter Summary ---
:1955 Author Organization [facility] Address [address] [place] [address] Care Team Providers Name Role Phone Elsewhere, Pcp Primary Care Provider Unavailable Encounter Details Date Type Department Care Team Description 12/26/2021 Hospital Encounter Department of Angélica Granger ant Liver (HCC); Laboratory Medicine J PDemetriusADurgaC. 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 traZODone (DESYREL) 100 Take 1 tablet (100 90 tablet 3 12/202108/27/2022 mg tablet mg total) by mouth at bedtime as needed for sleep. budesonide (PULMICORT) ADD 1 RESPULE TO 8 360 mL 07/3002/07/2022 0.5 mg/2 mL nebulizer OZ SALINE AND solution IRRIGATE EACH SIDE OF NOSE TWICE DAILY DIRECTED ipratropium (ATROVENT) Administer 2 sprays 30 mL 01/2102/05/2022 21 mcg (0.03 %) nasal into each nostril 2 spray (two) times a day. upto 5 times daily as needed. lidocaine-prilocaine Apply 1 application 30 g 202102/07/2022 (EMLA) 2.5-2.5 % cream topically See Admin Instructions. 2 hours prior to dialysis. mycophenolate (CELLCEPT) Take 2 capsules 360 capsule 3 10/1902/15/2022 250 mg (500 mg total) by capsuleIndications: mouth 2 (two) times Transplant Liver (HCC), a day. Do not Infection break, cut, or open Cytomegalovirus (HCC), capsules. Medication Therapy Nursing Home Not Anticoagulant sulfamethoxazole-trimeth Take 1 tablet by 30 tablet 0 12/1001/09/2022 oprim (BACTRIM,SEPTRA) mouth daily. Take 400-80 mg per tablet at bedtime, after dialysis. tacrolimus (PROGRAF) 0.5 Take 1 capsule (0.5 180 capsule 3 0 12/21/2021 12/27/2021 mg capsuleIndications: mg total) by mouth Transplant Liver (HCC), 2 (two) times a Medication Therapy Long day. Term Not Anticoagulant torsemide (DEMADEX) 10 Take 3 tablets (30 60 tablet 1 10/1701/31/2022 mg tablet mg total) by mouth daily. valGANciclovir (VALCYTE) Take 1 tablet (450 45 tablet 0 12/27/2021 450 mg mg total) by mouth tabletIndications: every other day. Transplant Liver (HCC), take every 48 hours Medication Therapy Long after dialysis Term Not Anticoagulant, Infection Cytomegalovirus (HCC) voriconazole (VFEND) 200 Take 1 tablet (200 180 tablet 0 01/18/2022 mg tablet mg total) by mouth 2 (two) times a day. Take one hour before or 2 hours after a meal. documented as 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 200 [place] [phone] 04/25/2022 Office Visit Otorhinolaryngology Dex Matta APRN, C.N.P., M.S.N. 200 [place] [phone] 05/08/2022 Appointment Laboratory Medicine Angélica Granger P.A.-C. [address] [place] [phone] 05/08/2022 Clinical Admitting/Central Communication Scheduling 05/10/2022 Appointment Radiology Jeremie Rose M.D. [address] [place] [phone] 05/10/2022 Comprehensive Visit Orthopedic Surgery Warner Graves M.D. [address] [place] [phone] 05/22/2022 Appointment Laboratory Medicine Angélica Granger P.A.-C. [address] [place] [phone] 06/05/2022 Appointment Laboratory Medicine Angélica Granger P.A.-C. [address] [place] [phone] 06/19/2022 Appointment Laboratory Medicine Angélica Granger P.A.-C. [address] [place] [phone] 07/03/2022 Appointment Laboratory Medicine Angélica Granger P.A.-C. [address] [place] [phone] 07/17/2022 Appointment Laboratory Medicine Angélica Granger P.A.-C. [address] [place] [phone] 07/31/2022 Appointment Laboratory Medicine Angélica Granger P.A.-C. [address] [place] [phone] 08/14/2022 Appointment Laboratory Medicine Angélica Granger P.A.-C. [address] [place] [phone] 08/28/2022 Appointment Laboratory Medicine Angélica Granger P.A.-C. [address] [place] [address] documented as of this encounter Procedures Procedure Name Priority Date/Time Associated Diagnosis Comme nts CMV DNA DETECT/QUANT, Routine 12/26/2021 8:07 Transplant Liver Results for this P AM CDT (HCC) procedure are in Medication Therapy the resul ts Nursing Home Not section. Anticoagulant TACROLIMUS LEVEL, B Routine 12/26/2021 8:07 Transplant Liver R esults for this AM CDT (HCC) procedure are in Medication Therapy the resul ts Nursing Home Not section. Anticoagulant CBC WITHOUT Routine 12/26/2021 8:07 Transplant Liver Results for this DIFFERENTIAL, B AM CDT (HCC) procedure are in Medication Therapy the resul ts Nursing Home Not section. Anticoagulant GLUCOSE, FASTING, S/P Routine 12/26/2021 8:07 Transplant Liver Results for this AM CDT (HCC) procedure are in Medication Therapy the resul ts Airplane Cleaner Not section. Anticoagulant COMPREHENSIVE Routine 12/26/2021 8:07 Transplant Liver Results for this METABOLIC PANEL, S/P AM CDT (HCC) procedure are in Medication Therapy the resul ts Nursing Home Not section. Anticoagulant documented in this encounter Results Tacrolimus, B (12/26/2021 8:07 AM CDT) athologist Signature Tacrolimus, B 6.0 5.0-15.0 12/27/2021 SDSC (Trough) 10:01 AM CDT ng/mL Comment: ----ADDITIONAL INFORMATION---- Target steady-state trough concentration s vary depending on the type of transplant, concomitant immunosuppressio n, clinical/institutional protocols, and time post-transplant. Results should be interpreted in conjunction with this clinical information and any physic al signs/symptoms of rejection/toxicity. Testing performed by [employer]-Tandem Mass Spectrometry (LC-MS/MS). This test was developed and its performa nce characteristics determined by [facility] in a manner consistent with CLIA requirements. This test has not been cleared or approved by the U.S. Mer d and Drug Administration. Specimen Anatomical Collection Method Collection Time Receive d Time (Source) Location / / Volume Laterality Blood (Blood, 12/26/2021 8:07 AM 12/28/19 22 6:43 Venous) CDT AM CDT Angélica Granger P.A.-C. LAB BLOOD NON ADD-ON Performing Organization Address City/[facility] Phon e Number [facility] [address] [place] [phone] [address] [facility] [facility] [place] [address] Laboratory Medicine and Pathology [address] [place] [address] Dr. MURILLO (ABNORMAL) CMV DNA Detect / Quant, Plasma (12/26/2021 8:07 AM CDT) Patholo gist Method Time Signature CMV DNA 313 (A) Undetected 12/27/2021 [facility] Detect/Quant, IU/mL 3:07 PM CDT P Comment: Result in log IU/mL is 2.50. ----ADDITIONAL INFORMATION---- The quantification range of this assay i s 35 to 10,000,000 IU/mL (1.54 log to 7.00 log IU/mL). Testing was performed u sing the tika CMV test ([employer] with the tika 6800 System. Specimen Anatomical Collection Method Collection Time Receive d Time (Source) Location / / Volume Laterality Blood (Blood, 12/26/2021 8:07 AM 12/28/19 22 7:06 Venous) CDT AM CDT Angélica Granger P.A.-C. LAB MICROBIOLOGY - BLOOD ORD ERABLES Performing Organization Address City/[facility]/ZIP Code Phon e Number [facility] [address] [place], [place] [address] [facility] [place] [address] Laboratory Medicine and Pathology [address] [place] [address] Dr. [place]ILLO (ABNORMAL) Glucose, Fasting (12/26/2021 8:07 AM CDT) athologist Signature Glucose, P 109 (H) 70 - 100 12/26/2021 [facility] mg/dL 8:39 AM CDT Last Intake 13 hr 12/26/2021 [facility] 8:07 AM CDT Specimen Anatomical Collection Method Collection Time Receive d Time (Source) Location / / Volume Laterality Blood (Blood, 12/26/2021 8:07 AM 12/27/19 8:08 Venous) CDT AM CDT Angélica Granger P.A.-C. LAB BLOOD NON ADD-ON Performing Organization Address City/State/ZIP Code Phon e Number [facility]- [address] [place] [address] [place] [address] (ABNORMAL) Comprehensive Metabolic Panel (12/26/2021 8:07 AM CDT) Analysis Performed At Patho logist Time Signature Potassium, P 4.0 3.6 - 5.2 12/26/2021 [facility] mmol/L 8:41 AM CDT Sodium, P 135 135 - 145 12/26/2021 [facility] mmol/L 8:41 AM CDT Chloride, P 99 98 - 107 12/26/2021 [facility] mmol/L 8:41 AM CDT Bicarbonate, P 25 22 - 29 12/26/2021 [facility] mmol/L 8:41 AM CDT Anion Gap, P 11 7 - 15 12/26/2021 [facility] 8:41 AM CDT BUN (Blood Urea 34 (H) 8 - 24 12/26/2021 [facility] Nitrogen), P mg/dL 8:41 AM CDT Creatinine 3.95 (H) 0.74 - 12/26/2021 [facility] 1.35 mg/dL 8:41 AM CDT eGFR-Black/Afri 17 (L) >=60 12/26/2021 [facility] can Filipino mL/min/BSA 8:41 AM CDT Comment: ----ADDITIONAL INFORMATION---- Estimated GFR calculated using the 2009 CKD_EPI creatinine equation. eGFR Non-Black/ <15 (L) >=60 mL/min/BSA 12/26/2021 8:41 AM CDT [facility] Filipino Comment: ----ADDITIONAL INFORMATION---- Estimated GFR calculated using the 2009 CKD_EPI creatinine equation. Calcium, Total, P 9.0 8.8 - 10.2 mg/dL 12/26/2021 8:41 AM CDT [facility] Glucose, P CANCELED mg/dL 12/26/2021 8:08 AM CDT [facility] Comment: Duplicate test request. Result canceled by the ancillary. Protein, Total, P 6.2 (L) 6.3 - 7.9 g/dL 12/26/2021 8:41 A M CDT [facility] Albumin, P 4.2 3.5 - 5.0 g/dL 12/26/2021 8:41 AM CDT C NFL Aspartate Aminotransferase 27 8 - 48 U/L 12/26/2021 8 :41 AM CDT [facility] (AST), P Alkaline Phosphatase, P 128 40 - 129 U/L 12/26/2021 8: 41 AM CDT [facility] Alanine Aminotransferase 21 7 - 55 U/L 12/26/2021 8:4 1 AM CDT [facility] (ALT), P Bilirubin, Total, P 0.3 <=1.2 mg/dL 12/26/2021 8:41 AM CDT [facility] Specimen Anatomical Collection Method Collection Time Receive d Time (Source) Location / / Volume Laterality Blood (Blood, 12/26/2021 8:07 AM 12/27/19 8:08 Venous) CDT AM CDT Angélica Granger P.A.-C. LAB BLOOD ADD-ON Performing Organization Address City/State/ZIP Code Phon e Number [address] [address] [place] [address] [address] (ABNORMAL) CBC without Differential (12/26/2021 8:07 AM CDT) [facility] gist Method Time Signature Hemoglobin 10.6 (L) 13.2 - 12/26/2021 [facility] 16.6 g/dL 8:21 AM CDT Hematocrit 34.1 (L) 38.3 - 12/26/2021 [facility] 48.6 % 8:21 AM CDT Erythrocytes 3.21 (L) 4.35 - 12/26/2021 [facility] 5.65 8:21 AM CDT x10(12)/L MCV 106.2 (H) 78.2 - 12/26/2021 [facility] 97.9 fL 8:21 AM CDT RBC Distrib Width 13.2 11.8 - 12/26/2021 [facility] 14.5 % 8:21 AM CDT Platelet Count 253 135 - 317 12/26/2021 [facility] x10(9)/L 8:21 AM CDT Leukocytes 3.8 3.4 - 9.6 12/26/2021 [facility] x10(9)/L 8:21 AM CDT Specimen Anatomical Collection Method Collection Time Receive d Time (Source) Location / / Volume Laterality Blood (Blood, 12/26/2021 8:07 AM 12/27/19 22 8:08 Venous) CDT AM CDT Angélica Granger P.A.-C. LAB BLOOD ADD-ON Performing Organization Address City/State/[facility] Phon e Number [address] [address] [place] [address] System [address] documented in this encounter Visit Diagnoses Diagnosis Transplant Liver (HCC) Medication Therapy Airplane Cleaner Not Anticoa gulant documented in this encounter Additional Health Concerns Assessment Noted Time PHQ-9 Depression Total Score: 4 11/28/2020 10:17 AM CD T documented as of this encounter Care Teams Quality Liaison Relationship Specialty Start Date End Date Elsewhere, Pcp PCP - General Family Medicine 07/29/17 [facility] - Laboratory Medicine 04/12/[address] [address] documented as of this encounter
--- OUTSIDE RECORDS SUMMARY | 2022-04-13 11:56 | XMS_ITS | Encounter Summary ---
:1955 Author Organization [facility] Address [address] [place] [address] Care Team Providers Name Role Phone Elsewhere, Pcp Primary Care Provider Unavailable Reason for Referral Outpatient (Routine) - Authorized Specialty Diagnoses / Procedures Referred By Contact Refer red To Contact Dermatology Patricia Nino M.D. [facility] [address] [place], [place] [phone] Referral ID Status Reason Start Date Expiration Date Visits V isits Requested Authorized [id number] Authorized 01/04/2022 01/04/2023 1 1 Reason for Visit Outpatient (Routine) - Closed Specialty Diagnoses / Procedures Referred By Contact Refer red To Contact Dermatology Diagnoses Squamous Cell Carcinoma In Situ Iza Lim M.D. [facility] Procedures [facility] 1-[address] sites [address] [place] [phone] Referral ID Status Reason Start Date Expiration Date Visits Requ ested Visits Authorized [id number] Closed 11/08/2021 11/08/2022 1 1 Encounter Details Date Type Department Care Team Description 01/04/2022 Procedure visit Department of Varun Saldivar Carcinoma In Situ (Primary Dx); Dermatology samm Camejo M.D., M.S. Keratosis [facility] [place], [place] [address] [facility] [address] [place] [phone] Social History Tobacco Use Types Packs/Day Years [...] or relatives? How often do you attend oriental orthodox or More than 4 times per year 12/15/2021 scientology services? 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 - 01/04/2022 11:30 AM CDT cryotherapy on the Right jain and Right cheek was/were performed as ordered and outlined by Varun Saldivar M.D., M.S. in the clinical note dated with today's date. documented in this encounter Procedure Notes Patricia Nino M.D. - 01/04/2022 11:30 AM CDT PREOP INDICATION: REMOVAL. Date of Surgery: 01/04/2022 Surgeon: Dr. Varun Saldivar M.D., M.S. Heat Curer: Dr. Patricia Nino M.D. Location: [facility] Floor:16 Room:[facility] Visit Type: Outpatient PostOp Diagnosis: Squamous cell carcinoma in situ Anatomic Location: Right ryann bowl Preoperative size: 1.1 x 1.3 cm [facility] number: [phone] Indication(s) for Mohs Micrographic Surgery: anatomic location where tissue conservation is criticaland immunosuppressed patient Procedure(s): Mohs micrographic surgery with intermediate layered closure Procedural pause conducted to verify: correct patient identity, procedure to be performed and as applicable, correct side and site, correct patient position, and availability of implants, special equipment or special requirements. INFORMED CONSENT Discussed the risks, benefits, alternatives, and the necessity of other members of the healthcare team participating in the procedure. All questions answered and consent given. PATIENT EDUCATION Ready to learn, no apparent learning barriers were identified; learning preferences include listening. Explained diagnosis and treatment plan; patient expressed understanding of the content. Preoperative medications: None No residual tumor was seen on stage one, squamous atypia was treated with electrodesiccation and curettage on block A3. The anesthesia used was 1% lidocaine and 0.25% bupivacaine with 1:200,000 epinephrine. The skin was prepped in a sterile fashion with Povidone-iodine and Hibiclens. Histologic tumor-free margins were obtained in 1 stages (3 blocks) by standard Mohs micrographic techniques with the Mohs surgeon performing both the surgery and pathology. The final defect depth was down to level of: subcutaneous fat. Postoperative size: 2.0 x 2.0 cm. After discussing the options for wound management, it was decided to allow the wound to heal by second intention and assess the cosmetic and functional outcome at a later date. Estimated blood loss: Minimal. Complications: None. Wound care: Routine. Postoperative medications: None Patricia Nino MD Mohs Surgery Fellow documented in this encounter Consult Notes Patricia Nino M.D. - 01/04/2022 11:30 AM CDT STAFF PHYSICIAN: Varun Saldivar M.D., M.S. REFERRING PROVIDER: Iza Lim M.D. HISTORY OF THE PRESENT ILLNESS Bruce Singh is a pleasant 66 y.o. 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 PATHOLOGY: A. 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 [] [x] Prior skin cancer [x] [] Prior melanoma [] [x] aspirin [] [x] Bleeding or healing problems [] [x] Cancers (other) [] [x] Defibrillator [] [x] Dementia [] [x] Diabetes [] [x] Eliquis [] [x] Heart disease [] [x] Heart valve [] [x] Infectious diseases (HIV/hep) [] [x] Joint replacements [] [x] Other implants [] [x] Lung disease or conditions (Seratia infection) [x] [] murmur [] [x] Organ transplant & type: liver [x] [] Other blood thinners [] [x] pacemaker [] [x] Plavix [] [x] stroke [] [x] seizure [] [x] tobacco [] [x] Warfarin (Coumadin) [] [x] +Aspirin PHYSICAL EXAM General: Well developed, well-nourished, in no acute distress and with appropriate affect Skin: Focused skin examination was performed today of the surgical site(s) revealing erythematous scar, consistent with prior biopsy site(s), on the right ryann bowl, pancreatic papule on the right jain and right cheek. Lymph: No postauricular, preauricular, cervical, submandibular lymphadenopathy ASSESSMENT AND PLAN #1 Squamous cell carcinoma in-situ, right ryann bowl The patient is here today for definitive treatment of tumor. We reviewed the diagnosis(es)/indication(s) and treatment options. Based on appropriate use criteria, decision was made to treat with Mohs micrographic surgery given site/location where tissue conservation is critical. We reviewed associated risks, benefits, and alternatives. Risks included bleeding, infection, scar, recurrence, large wound, dehiscence, and sensation loss. Natural history of scar and expectations reviewed. After discussion, the patient consented to proceed. All questions were answered. After curettage of the clinically apparent tumor, the tumor deep and peripheral margins were clear after1 stages of Mohs micrographic excision. The final wound defect was repaired by secondary intention. Please refer to the operative note and associated Mohs map for complete details. #Actinic Keratoses: Right jain, right cheek CONSENT Discussed the risks, benefits, alternatives, and the necessity of other members of the healthcare team participating in the procedure. All questions answered and consent given. PROCEDURE INFORMATION Given the precancerous nature of this lesion(s), treatment is medically indicated. After discussion of the risks, benefits and alternatives to treatment with cryotherapy, informed consent was obtained.We treated a total of 2 lesion(s) with two 20-second freeze-thaw cycles of liquid nitrogen cryotherapy. The patient tolerated the procedure well. Aftercare instructions were provided in written and verbal form to the patient. Should any of these lesions recur, the patient should return for biopsy or further evaluation. Patricia Nino MD Mohs Surgery Fellow Associated attestation - Varun Saldivar M.D., M.S. - 01/04/2022 5:00 PM CDT Assisted by: Dr. Nino. I have heard the history and seen and examined the patient with him/her. I agree with the impressionand plan as discussed in his/her note. I participated in the entire case, including outlining of the Mohs margins, review of the slides, and design and execution of the repair. For further details, please refer to the clinic note and operative note. documented in this encounter Plan of Treatment Upcoming Encounters Date Type Specialty Care Team Description 04/24/2022 Appointment Laboratory Medicine Angélica Granger P.A.-C. [address] [place] [phone] 04/25/2022 Office Visit Otorhinolaryngology Dex Matta APRN, C.N.P., M.S.N. [address] [place] [phone] 05/08/2022 Appointment Laboratory Medicine Angélica Granger P.A.-C. [address] [place] [phone] 05/08/2022 Clinical Admitting/Central Communication Scheduling 05/10/2022 Appointment Radiology Jeremie Rose M.D. [address] [place] [phone] 05/10/2022 Comprehensive Visit Orthopedic Surgery Warner Graves M.D. [address] [place] [phone] 05/22/2022 Appointment Laboratory Medicine Angélica Granger P.A.-C. [address] [place] [phone] 06/05/2022 Appointment Laboratory Medicine Angélica Granger P.A.-C. [address] [place] [phone] 06/19/2022 Appointment Laboratory Medicine Angélica Granger P.A.-C. [address] [place] [phone] 07/03/2022 Appointment Laboratory Medicine Angélica Granger P.A.-C. [address] [place] [phone] 07/17/2022 Appointment Laboratory Medicine Angélica Granger P.A.-C. [address] [place] [phone] 07/31/2022 Appointment Laboratory Medicine Angélica Granger P.A.-C. [address] [place] [phone] 08/14/2022 Appointment Laboratory Medicine Angélica Granger P.A.-C. [address] [place] [phone] 08/28/2022 Appointment Laboratory Medicine Angélica Granger P.A.-C. [address] [place] [phone] Scheduled Referrals Name Type Priority Associated Order Schedule Diagnoses Dermatology office Outpatient Referral Routine Ex pected: visit (clinic) 07/07/2022 (Approximate), Expires: 04/06/2023 documented as of this encounter Visit Diagnoses Diagnosis Squamous Cell Carcinoma In Situ - Primar y Keratosis [facility]inic documented in this encounter Administered Medications Inactive Administered Medications - up to 3 most recent administrations Medication Order MAR Action Action Date Dose Rate Site mweyrexbhuw-plewstmfw-[id number] Given 01/04/2022 12:20 PM CDT 4 mL 0.25%-1%-1:200,000 injection 2-25 mL 2-25 mL, injection, As needed, may repeat if the patient complains of pain/discomfort at the site up to 50 mL for entire procedure, Starting on Fri01/04/22 at 1219, For 1 day lidocaine-EPINEPHrine 1%-1:200,000 injection Given 2 12:20 PM CDT 8 mL 2-50 mL (XYLOCAINE W/EPI) 2-50 mL, injection, As needed, may repeat if the patient complains of pain/discomfort at the site up to 50 mL for entire procedure, Starting on Fri01/04/22 at 1219, For 1 day documented in this encounter Additional Health Concerns Assessment Noted Time PHQ-9 Depression Total Score: 4 11/28/2020 10:17 AM CD T documented as of this encounter Care Teams Toxicology Teacher Relationship Specialty Start Date End Date Elsewhere, Pcp PCP - General Family Medicine 07/29/17 [facility] - Laboratory Medicine 04/12/[address] [address] documented as of this encounter
--- OUTSIDE RECORDS SUMMARY | 2022-04-13 11:56 | XMS_ITS | Encounter Summary ---
:1955 Author Organization [facility] Address [address] [place] [address] Care Team Providers Name Role Phone Elsewhere, Pcp Primary Care Provider Unavailable Encounter Details Date Type Department Care Team Description 01/09/2022 Hospital Encounter Department of Angélica Granger ant Liver (HCC); Laboratory Medicine J PDemetriusADurgaC. Medication Therapy Penitentiary Not Anticoa gulant in [address] [phone] [place], [place] [phone] (Work) [phone] Social History Tobacco Use Types Packs/Day Years [...] or relatives? How often do you attend catholic or More than 4 times per year 12/15/2021 baptist services? 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 Medication Therapy Urban Design Consultant Not Anticoagulant tacrolimus (PROGRAF) 0.5 Take 1 capsule (0.5 90 capsule 3 03/15/2022 mg capsuleIndications: mg total) by mouth Transplant Liver (HCC), daily. Medication Therapy Urban Design Consultant Not Anticoagulant torsemide (DEMADEX) 10 Take 3 [...] Laboratory Medicine Angélica Granger P.A.-C. [address] [place] [phone] 04/25/2022 Office Visit Otorhinolaryngology Dex Matta APRN, C.N.P., M.S.N. [address] [place] [phone] 05/08/2022 Appointment Laboratory Medicine Angélica Granger P.A.-C. [address] [place] [phone] 05/08/2022 Clinical Admitting/Central Communication Scheduling 05/10/2022 Appointment Radiology Jeremie Rose M.D. [address] [place] [phone] 05/10/2022 Comprehensive Visit Orthopedic Surgery Warner Graves M.D. [address] [place] [phone] 05/22/2022 Appointment Laboratory Medicine Angélica Granger P.A.-C. [address] [place] [phone] 06/05/2022 Appointment Laboratory Medicine Angélica Granger P.A.-C. [address] [place] [phone] 06/19/2022 Appointment Laboratory Medicine Angélica Granger P.A.-C. [address] [place] [phone] 07/03/2022 Appointment Laboratory Medicine Angélica Granger P.A.-C. [address] [place] [phone] 07/17/2022 Appointment Laboratory Medicine Angélica Granger P.A.-C. [address] [place] [phone] 07/31/2022 Appointment Laboratory Medicine Angélica Granger P.A.-C. [address] [place] [phone] 08/14/2022 Appointment Laboratory Medicine Angélica Granger P.A.-C. [address] [place] [phone] 08/28/2022 Appointment Laboratory Medicine Angélica Granger P.A.-C. [address] [place] [phone] documented as of this encounter Procedures Procedure Name Priority Date/Time Associated Diagnosis Comme nts CMV DNA DETECT/QUANT, Routine 01/09/2022 8:07 Transplant Liver Results for this P AM CDT (HCC) procedure are in Medication Therapy the resul ts Urban Design Consultant Not section. Anticoagulant TACROLIMUS LEVEL, B Routine 01/09/2022 8:07 Transplant Liver R esults for this AM CDT (HCC) procedure are in Medication Therapy the resul ts Penitentiary Not section. Anticoagulant CBC WITHOUT Routine 01/09/2022 8:07 Transplant Liver Results for this DIFFERENTIAL, B AM CDT (HCC) procedure are in Medication Therapy the resul ts Penitentiary Not section. Anticoagulant GLUCOSE, FASTING, S/P Routine 01/09/2022 8:07 Transplant Liver Results for this AM CDT (HCC) procedure are in Medication Therapy the resul ts Urban Design Consultant Not section. Anticoagulant COMPREHENSIVE Routine 01/09/2022 8:07 Transplant Liver Results for this METABOLIC PANEL, S/P AM CDT (HCC) procedure are in Medication Therapy the resul ts Penitentiary Not section. Anticoagulant documented in this encounter Results (ABNORMAL) Tacrolimus, B (01/09/2022 8:07 AM CDT) athologist Signature Tacrolimus, B 3.0 (L) 5.0-15.0 01/10/2022 SDSC (Trough) 10:24 AM CDT ng/mL Comment: ----ADDITIONAL INFORMATION---- Target steady-state trough concentration s vary depending on the type of transplant, concomitant immunosuppressio n, clinical/institutional protocols, and time post-transplant. Results should be interpreted in conjunction with this clinical information and any physic al signs/symptoms of rejection/toxicity. Testing performed by Liquid Chromatograp hy-Tandem Mass Spectrometry (LC-MS/MS). This test was developed and its performa nce characteristics determined by [facility] in a manner consistent with CLIA requirements. This test has not been cleared or approved by the U.S. Mer d and Drug Administration. Specimen Anatomical Collection Method Collection Time Receive d Time (Source) Location / / Volume Laterality Blood (Blood, 01/09/2022 8:07 AM 01/11/20 22 7:18 Venous) CDT AM CDT Angélica Granger P.A.-C. LAB BLOOD NON ADD-ON Performing Organization Address [facility] Phon e Number [facility] [address] [place] [address] Dr M[place] [phone] [address] [facility] [place] [address] Laboratory Medicine and Pathology [address] [place] [address] Dr. MURILLO (ABNORMAL) CMV DNA Detect / Quant, Plasma (01/09/2022 8:07 AM CDT) [facility] gist Method Time Signature CMV DNA 91 (A) Undetected 01/10/2022 [facility] Detect/Quant, IU/mL 2:49 PM CDT P Comment: Result in log IU/mL is 1.96. ----ADDITIONAL INFORMATION---- The quantification range of this assay i s 35 to 10,000,000 IU/mL (1.54 log to 7.00 log IU/mL). Testing was performed u sing the tika CMV test ([employer] with the tika 6800 System. Specimen Anatomical Collection Method Collection Time Receive d Time (Source) Location / / Volume Laterality Blood (Blood, 01/09/2022 8:07 AM 01/11/20 22 7:13 Venous) CDT AM CDT Angélica Granger P.A.-C. LAB MICROBIOLOGY - BLOOD ORD ERABLES Performing Organization Address City/[facility] Phon e Number [address] [place] [address] [address] [facility] [place] [address] Laboratory Medicine and Pathology [address] [place] [address] Dr. MURILLO (ABNORMAL) Glucose, Fasting (01/09/2022 8:07 AM CDT) athologist Signature Glucose, P 120 (H) 70 - 100 01/09/2022 [facility] mg/dL 8:35 AM CDT Last Intake 13 hr 01/09/2022 [facility] 8:07 AM CDT Specimen Anatomical Collection Method Collection Time Receive d Time (Source) Location / / Volume Laterality Blood (Blood, 01/09/2022 8:07 AM 01/10/20 8:08 Venous) CDT AM CDT Angélica Granger P.A.-C. LAB BLOOD NON ADD-ON Performing Organization Address City/State/ZIP Code Phon e Number [facility]- [address] [place] [phone] [place] [address] (ABNORMAL) Comprehensive Metabolic Panel (01/09/2022 8:07 AM CDT) Analysis Performed At Patho logist Time Signature Potassium, P 4.3 3.6 - 5.2 01/09/2022 [facility] mmol/L 8:37 AM CDT Sodium, P 136 135 - 145 01/09/2022 [facility] mmol/L 8:37 AM CDT Chloride, P 100 98 - 107 01/09/2022 [facility] mmol/L 8:37 AM CDT Bicarbonate, P 25 22 - 29 01/09/2022 [facility] mmol/L 8:37 AM CDT Anion Gap, P 11 7 - 15 01/09/2022 [facility] 8:37 AM CDT BUN (Blood Urea 30 (H) 8 - 24 01/09/2022 [facility] Nitrogen), P mg/dL 8:37 AM CDT Creatinine 3.45 (H) 0.74 - 01/09/2022 [facility] 1.35 mg/dL 8:37 AM CDT eGFR-Black/Afri 20 (L) >=60 01/09/2022 [facility] can [place]i mL/min/BSA 8:37 AM CDT Comment: ----ADDITIONAL INFORMATION---- Estimated GFR calculated using the 2009 CKD_EPI creatinine equation. eGFR Non-Black/ 17 (L) >=60 mL/min/BSA 01/09/2022 8:37 AM CDT [facility] [place]i Comment: ----ADDITIONAL INFORMATION---- Estimated GFR calculated using the 2009 CKD_EPI creatinine equation. Calcium, Total, P 9.1 8.8 - 10.2 mg/dL 01/09/2022 8:37 AM CDT [facility] Glucose, P CANCELED mg/dL 01/09/2022 8:08 AM CDT [facility] Comment: Duplicate test request. Result canceled by the ancillary. Protein, Total, P 6.3 6.3 - 7.9 g/dL 01/09/2022 8:37 A M CDT [facility] Albumin, P 4.1 3.5 - 5.0 g/dL 01/09/2022 8:37 AM CDT C NFL Aspartate Aminotransferase 27 8 - 48 U/L 01/09/2022 8 :37 AM CDT [facility] (AST), P Alkaline Phosphatase, P 151 (H) 40 - 129 U/L 01/09/2022 8: 37 AM CDT [facility] Alanine Aminotransferase 27 7 - 55 U/L 01/09/2022 8:3 7 AM CDT [facility] (ALT), P Bilirubin, Total, P 0.3 <=1.2 mg/dL 01/09/2022 8:37 AM CDT [facility] Specimen Anatomical Collection Method Collection Time Receive d Time (Source) Location / / Volume Laterality Blood (Blood, 01/09/2022 8:07 AM 01/10/20 8:08 Venous) CDT AM CDT Angélica Granger P.A.-C. LAB BLOOD ADD-ON Performing Organization Address City/State/ZIP Code Phon e Number [facility] [address] [place] [phone] [place] [address] (ABNORMAL) CBC without Differential (01/09/2022 8:07 AM CDT) [facility] Method Time Signature Hemoglobin 11.3 (L) 13.2 - 01/09/2022 [facility] 16.6 g/dL 8:44 AM CDT Hematocrit 35.8 (L) 38.3 - 01/09/2022 [facility] 48.6 % 8:44 AM CDT Erythrocytes 3.38 (L) 4.35 - 01/09/2022 [facility] 5.65 8:44 AM CDT x10(12)/L MCV 105.9 (H) 78.2 - 01/09/2022 [facility] 97.9 fL 8:44 AM CDT RBC Distrib Width 12.8 11.8 - 01/09/2022 [facility] 14.5 % 8:44 AM CDT Platelet Count 258 135 - 317 01/09/2022 [facility] x10(9)/L 8:44 AM CDT Leukocytes 4.3 3.4 - 9.6 01/09/2022 [facility] x10(9)/L 8:44 AM CDT Specimen Anatomical Collection Method Collection Time Receive d Time (Source) Location / / Volume Laterality Blood (Blood, 01/09/2022 8:07 AM 01/10/20 8:08 Venous) CDT AM CDT Angélica Granger P.A.-C. LAB BLOOD ADD-ON Performing Organization Address City/State/[facility] Code Phon e Number [facility]- [address] [place] [phone] [place] [address] [place] [address] System [address] documented in this encounter Visit Diagnoses Diagnosis Transplant Liver (HCC) Medication Therapy Penitentiary Not Anticoa gulant documented in this encounter Additional Health Concerns Assessment Noted Time PHQ-9 Depression Total Score: 4 11/28/2020 10:17 AM CD T documented as of this encounter Care Teams Gravure Press Operator Relationship Specialty Start Date End Date Elsewhere, Pcp PCP - General Family Medicine 07/29/17 [facility] - Laboratory Medicine 04/12/20 [place] [address] documented as of this encounter
--- OUTSIDE RECORDS SUMMARY | 2022-04-13 11:56 | XMS_ITS | Encounter Summary ---
:[address] [facility] Address [address] [place] [address] Care Team Providers Name Role Phone Elsewhere, [...] or relatives? How often do you attend roman catholic or More than 4 times per year 12/15/2021 muslim services? Do you belong to any clubs or No 12/15/2021 organizations such as roman catholic groups, unions, fraternal or athletic groups, [...] at Date Recorded Male 05/16/2020 4:27 PM FULL TIME documented as 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 [address] [place] [phone] 04/25/2022 Office Visit Otorhinolaryngology Dex Matta APRN, C.N.P., M.S.N. [address] [place] [phone] 05/08/2022 Appointment Laboratory Medicine Angélica Granger P.A.-CDemetrius [address] [place] [phone] 05/08/2022 Clinical Admitting/Central Communication Scheduling 05/10/2022 Appointment Radiology Jeremie Rose M.D. [address] [place] [phone] 05/10/2022 Comprehensive Visit Orthopedic Surgery Warner Graves M.D. [address] [place] [phone] 05/22/2022 Appointment Laboratory Medicine Angélica Granger P.A.-CDemetrius [address] [place] [phone] 06/05/2022 Appointment Laboratory Medicine Angélica Granger P.A.-CDemetrius [address] [place] [phone] 06/19/2022 Appointment Laboratory Medicine Angélica Granger P.A.-C. [address] [place] [phone] 07/03/2022 Appointment Laboratory Medicine Angélica Granger P.A.-C. [address] [place] [phone] 07/17/2022 Appointment Laboratory Medicine Angélica Granger P.A.-C. [address] [place] [phone] 07/31/2022 Appointment Laboratory Medicine Angélica Granger P.A.-C. [address] [place] [phone] 08/14/2022 Appointment Laboratory Medicine Angélica Granger P.A.-C. [address] [place] [phone] 08/28/2022 Appointment Laboratory Medicine Angélica Granger P.A.-C. [address] [place] [phone] documented as of this encounter Procedures Procedure Name Priority Date/Time Associated Comments Diagnosis DERMATOLOGY IMAGE Routine 01/04/2022 12:00 Result s for this EXAM AM CDT procedure are i n the results section. documented in this encounter Results ear, right conchal bowl 124 Mohs micrographic surgery-Dermatology Image Exam (01/04/2022 12:00 AM CDT) Specimen (Source) Anatomical Location Collection Method / Collectio n Time Received Time / Laterality Volume Narrative IIMS - 01/04/2022 4:21 PM CDT This order has been created and auto-finalized to support the import of images acquired without order. The clini daelfo documentation to support these images can be [...] documented as of this encounter Care Teams Factory Maintenance Technician Relationship Specialty Start Date End Date Elsewhere, Pcp PCP - General Family Medicine 07/29/17 [facility] - Laboratory Medicine 04/12/[address] [address] documented as of this encounter
--- OUTSIDE RECORDS SUMMARY | 2022-04-13 11:56 | XMS_ITS | Encounter Summary ---
:1955 Author Organization [facility] Address [address] [place] [address] Care Team Providers Name Role Phone Elsewhere, Pcp Primary Care Provider Unavailable Reason for Referral Transplant (Routine) - Authorized Specialty Diagnoses / Procedures Referred By Contact Refer red To Contact Transplant Surgery / Diagnoses Transplant Liver (HCC) Medication Therapy Alf Not Anticoagulant Screening Examination Skin Cancer Dialysis Dependent (HCC) Screening Examination Prostate Cancer Nodules Pulmonary Multiple Yusuf Umanzor [facility] Transplant Sada, M.P.H. [address] [place] [address] Referral ID Status Reason Start Date Expiration Date Visits V isits Requested Authorized [id number] Authorized 12/26/2021 12/26/2022 1 1 Scheduling Instructions ROBIN 11/2022, coordinate with rui escobar RI/CAT/PET Scan (Routine) - Authorized Specialty Diagnoses / Procedures Referred By Contact Refer red To Contact Radiology Diagnoses Transplant Liver (HCC) Medication Therapy Universal Grinder Set Up Operator Not Anticoagulant Screening Examination Skin Cancer Dialysis Dependent (HCC) Screening Examination Prostate Cancer Nodules Pulmonary Multiple Yusuf Umanzor M.D., [facility] Procedures CT Chest without IV Contrast M.P.H. [address] [place] [address] Referral ID Status Reason Start Date Expiration Date Visits V isits Requested Authorized [id number] Authorized 12/26/2021 12/26/2022 1 1 utpatient (Routine) - Closed Specialty Diagnoses / Procedures Referred By Contact Refer red To Contact Pulmonary Medicine Diagnoses Transplant Liver (HCC) Medication Therapy Universal Grinder Set Up Operator Not Anticoagulant Screening Examination Skin Cancer Dialysis Dependent (HCC) Screening Examination Prostate Cancer Nodules Pulmonary Multiple Yusuf Umanzor [facility] Sada, M.P.H. [address] [place] [address] Referral ID Status Reason Start Date Expiration Date Visits Requ ested Visits Authorized [id number] Closed 12/26/2021 12/26/2022 1 1 Scheduling Instructions ROBIN 11/2022, coordinate with rui escobar ransplant (Routine) - Authorized Specialty Diagnoses / Procedures Referred By Contact Refer red To Contact Transplant Surgery / Diagnoses Transplant Liver (HCC) Medication Therapy Alf Not Anticoagulant Screening Examination Skin Cancer Dialysis Dependent (HCC) Screening Examination Prostate Cancer Nodules Pulmonary Multiple Yusuf Umanzor [facility] Transplant Sada, M.P.H. [address] [place] [address] Referral ID Status Reason Start Date Expiration Date Visits V isits Requested Authorized [id number] Authorized 12/26/2021 12/26/2022 1 1 Scheduling Instructions ROBIN 11/2022, coordinate with rui escobar utpatient (Routine) - Authorized Specialty Diagnoses / Procedures Referred By Contact Refer red To Contact Diagnoses Transplant Liver (HCC) Medication Therapy Universal Grinder Set Up Operator Not Anticoagulant Screening Examination Skin Cancer Dialysis Dependent (HCC) Screening Examination Prostate Cancer Nodules Pulmonary Multiple Yusuf Umanzor M.D., [facility] Procedures US Liver Transplant M.P.H. [address] [place] [address] Referral ID Status Reason Start Date Expiration Date Visits V isits Requested Authorized [id number] Authorized 12/26/2021 12/26/2022 1 1 ransplant (Routine) - Authorized Specialty Diagnoses / Procedures Referred By Contact Refer red To Contact Transplant Surgery / Diagnoses Transplant Liver (HCC) Medication Therapy Universal Grinder Set Up Operator Not Anticoagulant Screening Examination Skin Cancer Dialysis Dependent (HCC) Screening Examination Prostate Cancer Nodules Pulmonary Multiple Yusuf Umanzor, [facility] Transplant M.Rui., M.P.H. [address] [place] [address] Referral ID Status Reason Start Date Expiration Date Visits V isits Requested Authorized [id number] Authorized 12/26/2021 12/26/2022 1 1 Scheduling Instructions ROBIN 11/2022, coordinate with rui escobar ransplant (Routine) - Authorized Specialty Diagnoses / Procedures Referred By Contact Refer red To Contact Transplant Surgery / Diagnoses Transplant Liver (HCC) Medication Therapy Universal Grinder Set Up Operator Not Anticoagulant Screening Examination Skin Cancer Dialysis Dependent (HCC) Screening Examination Prostate Cancer Nodules Pulmonary Multiple Yusuf Umanzor [facility] Transplant M.Louie, M.P.H. [address] [place] [address] Referral ID Status Reason Start Date Expiration Date Visits V isits Requested Authorized [id number] Authorized 12/26/2021 12/26/2022 1 1 Scheduling Instructions ROBIN 11/2022, coordinate with rui escobar Encounter Details Date Type Department Care Team Description 12/25/2021 Orders Only Curt Mccann, Christelle Tra nsplant Liver (HCC) (Primary Dx); [facility] . Medication Therapy Universal Grinder Set Up Operator Not Anticoa gulant; Transplantation and [address] Screening Examination Skin Cancer; Clinical Regeneration in [place], [place] Di alysis Dependent (HCC); [place], [place] [address] Screening Examination Prostate Cancer; [address] [phone] Nodules Pulmonary Multiple; [place] [phone] (Work) Liver Disease [phone] Social History Tobacco Use Types Packs/Day Years [...] or relatives? How often do you attend confucianist or More than 4 times per year 12/15/2021 evangelical services? 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 [address] [place] [phone] 04/25/2022 Office Visit Otorhinolaryngology Dex Matta APRN, C.N.P., M.S.N. [address] [place] [phone] 05/08/2022 Appointment Laboratory Medicine Angélica Granger P.A.-C. [address] [place] [phone] 05/08/2022 Clinical Admitting/Central Communication Scheduling 05/10/2022 Appointment Radiology Jeremie Rose M.D. [address] [place] [phone] 05/10/2022 Comprehensive Visit Orthopedic Surgery Warner Graves M.D. [address] [place] [phone] 05/22/2022 Appointment Laboratory Medicine Angélica Granger P.A.-C. [address] [place] [phone] 06/05/2022 Appointment Laboratory Medicine Angélica Granger P.A.-C. [address] [place] [phone] 06/19/2022 Appointment Laboratory Medicine Angélica Granger P.A.-C. [address] [place] [phone] 07/03/2022 Appointment Laboratory Medicine Angélica Granger P.A.-C. [address] [place] [phone] 07/17/2022 Appointment Laboratory Medicine Angélica Granger P.A.-C. [address] [place] [phone] 07/31/2022 Appointment Laboratory Medicine Angélica Granger P.A.-C. [address] [place] [phone] 08/14/2022 Appointment Laboratory Medicine Angélica Granger P.A.-C. [address] [place] [phone] 08/28/2022 Appointment Laboratory Medicine Angélica Granger P.A.-C. [address] [place] [phone] Scheduled Orders Name Type Priority Associated Diagnoses Order S chedule Bilirubin, Direct Lab Routine Transplant Liver Expect ed: (HCC) 11/21/2022 Medication Therapy (Approxim ate), Alf Not Expires: Anticoagulant 03/27/2023 Screening Examination Skin Cancer Dialysis Dependent (HCC) Screening Examination Prostate Cancer Nodules Pulmonary Multiple Comprehensive Lab Routine Transplant Liver Expected: Metabolic Panel (HCC) 11/21/2022 Medication Therapy (Approxim ate), Universal Grinder Set Up Operator Not Expires: Anticoagulant 03/27/2023 Screening Examination Skin Cancer Dialysis Dependent (HCC) Screening Examination Prostate Cancer Nodules Pulmonary Multiple Lipid Panel Lab Routine Transplant Liver Expected: (HCC) 11/21/2022 Medication Therapy (Approxim ate), Universal Grinder Set Up Operator Not Expires: Anticoagulant 03/27/2023 Screening Examination Skin Cancer Dialysis Dependent (HCC) Screening Examination Prostate Cancer Nodules Pulmonary Multiple Hemoglobin A1c Lab Routine Transplant Liver Expected: (HCC) 11/21/2022 Medication Therapy (Approxim ate), Universal Grinder Set Up Operator Not Expires: Anticoagulant 03/27/2023 Screening Examination Skin Cancer Dialysis Dependent (HCC) Screening Examination Prostate Cancer Nodules Pulmonary Multiple S-TSH Lab Routine Transplant Liver Expected: (Thyroid-Stimulating (HCC) 11/21/2022 Hormone - Sensitive) Medication Therapy ( Approximate), Alf Not Expires: Anticoagulant 03/27/2023 Screening Examination Skin Cancer Dialysis Dependent (HCC) Screening Examination Prostate Cancer Nodules Pulmonary Multiple Uric Acid Lab Routine Transplant Liver Expected: (HCC) 11/21/2022 Medication Therapy (Approxim ate), Alf Not Expires: Anticoagulant 03/27/2023 Screening Examination Skin Cancer Dialysis Dependent (HCC) Screening Examination Prostate Cancer Nodules Pulmonary Multiple Iron and Total Lab Routine Liver Disease Expected: Iron-Binding Capacity Transplant Liver (HCC) (Approximate), Medication Therapy Expires: Alf Not 03/27/2023 Anticoagulant Screening Examination Skin Cancer Dialysis Dependent (HCC) Screening Examination Prostate Cancer Nodules Pulmonary Multiple 25-Hydroxyvitamin D2 Lab Routine Transplant Liver Exp ected: and D3 (HCC) 11/21/2022 Medication Therapy (Approxim ate), Alf Not Expires: Anticoagulant 03/27/2023 Screening Examination Skin Cancer Dialysis Dependent (HCC) Screening Examination Prostate Cancer Nodules Pulmonary Multiple Magnesium Lab Routine Transplant Liver Expected: (HCC) 11/21/2022 Medication Therapy (Approxim ate), Alf Not Expires: Anticoagulant 03/27/2023 Screening Examination Skin Cancer Dialysis Dependent (HCC) Screening Examination Prostate Cancer Nodules Pulmonary Multiple Prothrombin Time (PT) Lab Routine Transplant Liver Ex pected: (HCC) 11/21/2022 Medication Therapy (Approxim ate), Alf Not Expires: Anticoagulant 03/27/2023 Screening Examination Skin Cancer Dialysis Dependent (HCC) Screening Examination Prostate Cancer Nodules Pulmonary Multiple CBC no call back, Lab Routine Transplant Liver Expect ed: reflex T/S HGB <8 (HCC) 11/21/2022 Medication Therapy (Approxim ate), Universal Grinder Set Up Operator Not Expires: Anticoagulant 03/27/2023 Screening Examination Skin Cancer Dialysis Dependent (HCC) Screening Examination Prostate Cancer Nodules Pulmonary Multiple Phosphorus Inorganic Lab Routine Transplant Liver Exp ected: (HCC) 11/21/2022 Medication Therapy (Approxim ate), Alf Not Expires: Anticoagulant 03/27/2023 Screening Examination Skin Cancer Dialysis Dependent (HCC) Screening Examination Prostate Cancer Nodules Pulmonary Multiple Organ Liver TX Lab Routine Transplant Liver Expected: (HCC) 11/21/2022 Medication Therapy (Approxim ate), Alf Not Expires: Anticoagulant 03/27/2023 Screening Examination Skin Cancer Dialysis Dependent (HCC) Screening Examination Prostate Cancer Nodules Pulmonary Multiple Mononucleosis RNA/DNA Lab Routine Transplant Liver Ex pected: (HCC) 11/21/2022 Medication Therapy (Approxim ate), Universal Grinder Set Up Operator Not Expires: Anticoagulant 03/27/2023 Screening Examination Skin Cancer Dialysis Dependent (HCC) Screening Examination Prostate Cancer Nodules Pulmonary Multiple Urinalysis with Lab Routine Transplant Liver Expected : Microscopic: Urine, (HCC) 11/21/2022 Voided Medication Therapy (Approxim ate), Alf Not Expires: Anticoagulant 03/27/2023 Screening Examination Skin Cancer Dialysis Dependent (HCC) Screening Examination Prostate Cancer Nodules Pulmonary Multiple US Liver Transplant Imaging RAD - Routine (most Transplant Danielle er Expected: inpatients and all (HCC) 11/21/2022 outpatients) Medication Therapy (Approxim ate), Alf Not Expires: Anticoagulant 03/27/2023 Screening Examination Skin Cancer Dialysis Dependent (HCC) Screening Examination Prostate Cancer Nodules Pulmonary Multiple CT Chest without IV Imaging RAD - Routine (most Transplant Danielle er Expected: Contrast inpatients and all (HCC) 11/21/2022 outpatients) Medication Therapy (Approxim ate), Universal Grinder Set Up Operator Not Expires: Anticoagulant 03/27/2023 Screening Examination Skin Cancer Dialysis Dependent (HCC) Screening Examination Prostate Cancer Nodules Pulmonary Multiple PSA (Prostate-Specific Lab Routine Transplant Liver E xpected: Antigen) Screen (HCC) 11/21/2022 Medication Therapy (Approxim ate), Universal Grinder Set Up Operator Not Expires: Anticoagulant 03/27/2023 Screening Examination Skin Cancer Dialysis Dependent (HCC) Screening Examination Prostate Cancer Nodules Pulmonary Multiple Tacrolimus, B Lab Routine Transplant Liver Expected: (HCC) 11/21/2022 Medication Therapy (Approxim ate), Universal Grinder Set Up Operator Not Expires: Anticoagulant 03/27/2023 Screening Examination Skin Cancer Dialysis Dependent (HCC) Screening Examination Prostate Cancer Nodules Pulmonary Multiple Scheduled Referrals Name Type Priority Associated Diagnoses Order S chedule Transplant Liver Outpatient Referral Routine Transplant Liver Expected: office visit (HCC) 11/21/2022 (clinic) Medication Therapy (Approxim ate), Alf Not Expires: Anticoagulant 03/27/2023 Screening Examination Skin Cancer Dialysis Dependent (HCC) Screening Examination Prostate Cancer Nodules Pulmonary Multiple Transplant Liver Outpatient Referral Routine Transplant Liver Expected: office visit (HCC) 11/21/2022 (clinic) Medication Therapy (Approxim ate), Universal Grinder Set Up Operator Not Expires: Anticoagulant 03/27/2023 Screening Examination Skin Cancer Dialysis Dependent (HCC) Screening Examination Prostate Cancer Nodules Pulmonary Multiple Transplant Liver Outpatient Referral Routine Transplant Liver Expected: office visit (HCC) 11/21/2022 (clinic) Medication Therapy (Approxim ate), Universal Grinder Set Up Operator Not Expires: Anticoagulant 03/27/2023 Screening Examination Skin Cancer Dialysis Dependent (HCC) Screening Examination Prostate Cancer Nodules Pulmonary Multiple Pulmonary Medicine Outpatient Referral Routine Transplant Live r Expected: office visit (HCC) 11/21/2022 (clinic) Medication Therapy (Approxim ate), Alf Not Expires: Anticoagulant 03/27/2023 Screening Examination Skin Cancer Dialysis Dependent (HCC) Screening Examination Prostate Cancer Nodules Pulmonary Multiple Transplant Liver Outpatient Referral Routine Transplant Liver Expected: office visit (HCC) 11/21/2022 (clinic) Medication Therapy (Approxim ate), Universal Grinder Set Up Operator Not Expires: Anticoagulant 03/27/2023 Screening Examination Skin Cancer Dialysis Dependent (HCC) Screening Examination Prostate Cancer Nodules Pulmonary Multiple documented as of this encounter Visit Diagnoses Diagnosis Transplant Liver (HCC) - Primary Medication Therapy Alf Not Anticoa gulant Screening Examination Skin Cancer Dialysis Dependent (HCC) Screening Examination Prostate Cancer Nodules Pulmonary Multiple Liver Disease documented in this encounter Additional Health Concerns Assessment Noted Time PHQ-9 Depression Total Score: 4 11/28/2020 10:17 AM CD T documented as of this encounter Care Teams Acid Dumper Relationship Specialty Start Date End Date Elsewhere, Pcp PCP - General Family Medicine 07/29/17 [facility] - Laboratory Medicine 04/12/[address] [address] documented as of this encounter
--- OUTSIDE RECORDS SUMMARY | 2022-04-13 11:56 | XMS_ITS | Encounter Summary ---
:1955 Author Organization [facility] Address [address] [place] [address] Care Team Providers Name Role Phone Elsewhere, Pcp Primary Care Provider Unavailable Reason for Visit Appointment Request (Routine) - Closed Specialty Diagnoses / Procedures Referred By Contact Refer red To Contact Otorhinolaryngology Referral ID Status Reason Start Date Expiration Date Visits Requ ested Visits Authorized [id number] Closed 12/14/2021 12/14/2022 1 Encounter Details Date Type Department Care Team Description 12/20/2021 Office Visit Department of Jaxson Churchill Otitis Media A cute Otorhinolaryngology in [place]., Ana M s Left (Primary [place], [place] M.S., M.P.H. 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 - 12/20/2021 2:30 PM CDT SUBJECTIVE CHIEF COMPLAINT / REASON FOR VISIT Bruce Singh is a 66 y.o. male who presents for evaluation of left ear fullness HISTORY OF PRESENT ILLNESS Mr. Singh is a very pleasant 66 y.o. with history of CRS and eustachian tube dysfunction who presents today for evaluation of left aural fullness. He has a history of right tympanic membrane perforation and was last seen by Allen Palomares on 01/08/2021. His right ear has been good since that visit but he reports the development of left-sided aural fullness roughly three weeks ago. He is without any pain or drainage. OBJECTIVE PHYSICAL EXAM General: Well appearing in no acute distress. Head: Normocephalic, atraumatic. Eyes: Extraocular eye movements intact bilaterally. Ears: Right external auditory canal patent and healthy. Tympanic membrane intact with a small monomer. TM is mobile on pneumatic otoscopy. Left external auditory canal patent in healthy. Left tympanic membrane intact. Serous fluid fills the middle ear. Respiratory: Unlabored respirations. Psych: Appropriate mood and affect. PROCEDURE NOTE PREOP INDICATOIN: Left serous otitis media PREOP DIAGNOSIS: Same PROCEDURE: Myringotomy DESCRIPTION: Bruce Singh was encountered in a [place] [address] ENT procedure room. Informed consent was obtained, universal protocol followed, and the fire risk was rated at a 2. With the patient in thesupine position, and with the aid of the operative microscope, the left ear was examined. Topical phenol was applied to the inferior tympanic membrane. Radial incision was made kanwal- inferiorly. Serous fluid suctioned from the middle ear space. Patient tolerated the procedure well, there was no bloodloss. He noted an immediate improvement in his hearing ability. ASSESSMENT / PLAN #1 Otitis Media Acute Serous Left Patient reports a three week history left-sided aural fullness. Serous fluid was noted filling the left middle ear space. Treatment options including observation, treatment with nasal decongestant in steroids, and myringotomy with or without tympanostomy tube discussed. Patient opted for myringotomy and tolerated this well today. On sectioning of middle ear fluid patient noted an immediate improvement in his hearing ability and resolution of the aural fullness. Patient reports that he has been squeezing his sinus rinse bottle very hard when doing lavage. I counseled that this could contribute to serous otitis media and counseled on proper technique. Patient will contact me if he has any further problems with his ears. documented in this encounter Plan of Treatment Upcoming Encounters Date Type Specialty Care Team Description 04/24/2022 Appointment Laboratory Medicine Angélica Granger P.A.-C. [address] [place] [phone] 04/25/2022 Office Visit Otorhinolaryngology Dex Matta APRN C.NDemetriusP., M.S.N. [address] [place] [phone] 05/08/2022 Appointment Laboratory Medicine Angélica Granger P.A.-C. [address] [place] [phone] 05/08/2022 Clinical Admitting/Central Communication Scheduling 05/10/2022 Appointment Radiology Jeremie Rose M.D. [address] [place] [phone] 05/10/2022 Comprehensive Visit Orthopedic Surgery Warner Graves M.D. [address] [place] [phone] 05/22/2022 Appointment Laboratory Medicine Angélica Granger P.A.-C. [address] [place] [phone] 06/05/2022 Appointment Laboratory Medicine Angélica Granger P.A.-C. [address] [place] [phone] 06/19/2022 Appointment Laboratory Medicine Angélica Granger P.A.-C. [address] [place] [phone] 07/03/2022 Appointment Laboratory Medicine Angélica Granger P.A.-C. [address] [place] [phone] 07/17/2022 Appointment Laboratory Medicine Angélica Granger P.A.-C. [address] [place] [phone] 07/31/2022 Appointment Laboratory Medicine Angélica Granger P.A.-C. [address] [place] [phone] 08/14/2022 Appointment Laboratory Medicine Angélica Granger P.A.-C. [address] [place] [phone] 08/28/2022 Appointment Laboratory Medicine Angélica Granger P.A.-C. [address] [place] [phone] documented as of this encounter Visit Diagnoses Diagnosis Otitis Media Acute Serous Left - Primary documented in this encounter Additional Health Concerns Assessment Noted Time PHQ-9 Depression Total Score: 4 11/28/2020 10:17 AM CD T documented as of this encounter Care Teams Rn Resource Nurse Relationship Specialty Start Date End Date Elsewhere, Pcp PCP - General Family Medicine 07/29/17 [facility] - Laboratory Medicine 04/12/[address] [address] documented as of this encounter
--- OUTSIDE RECORDS SUMMARY | 2022-04-13 11:56 | XMS_ITS | Encounter Summary ---
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 [address] [place] [phone] 04/25/2022 Office Visit Otorhinolaryngology Dex Matta APRN, C.N.P., M.S.N. [address] [place] [phone] 05/08/2022 Appointment Laboratory Medicine Angélica Granger P.A.-CDemetrius [address] [place] [phone] 05/08/2022 Clinical Admitting/Central Communication Scheduling 05/10/2022 Appointment Radiology Jeremie Rose M.D. [address] [place] [phone] 05/10/2022 Comprehensive Visit Orthopedic Surgery Warner Graves M.D. [address] [place] [phone] 05/22/2022 Appointment Laboratory Medicine Angélica Granger P.A.-CDemetrius [address] [place] [phone] 06/05/2022 Appointment Laboratory Medicine Angélica Granger P.A.-CDemetrius [address] [place] [phone] 06/19/2022 Appointment Laboratory Medicine Angélica Granger P.A.-C. [address] [place] [phone] 07/03/2022 Appointment Laboratory Medicine Angélica Granger P.A.-C. [address] [place] [phone] 07/17/2022 Appointment Laboratory Medicine Angélica Granger P.A.-C. [address] [place] [phone] 07/31/2022 Appointment Laboratory Medicine Angélica Granger P.A.-C. [address] [place] [phone] 08/14/2022 Appointment Laboratory Medicine Angélica Granger P.A.-C. [address] [place] [phone] 08/28/2022 Appointment Laboratory Medicine Angélica Granger P.A.-C. [address] [place] [phone] documented as of this encounter Procedures Procedure Name Priority Date/Time Associated Comments Diagnosis DERMATOLOGY IMAGE Routine 01/04/2022 12:10 Result s for this EXAM AM CDT procedure are i n the results section. documented in this encounter Results ear, right conchal bowl 124 Mohs micrographic surgery-Dermatology Image Exam (01/04/2022 12:10 AM CDT) Specimen (Source) Anatomical Location Collection [...] documented as of this encounter Care Teams Dry Box Tender Relationship Specialty Start Date End Date Elsewhere, Pcp PCP - General Family Medicine 07/29/17 [facility] - Laboratory Medicine 04/12/[address] [address] documented as of this encounter
[2022-04-13 11:57] LABS: Basophils Absolute Auto 0.01 K/uL (0.00-0.30); Basophils Percent Auto 0.1 % (0.0-3.0); Eosinophils Absolute Auto 0.08 K/uL (0.00-0.50); Eosinophils Percent Auto 0.8 % (0.0-7.0); Hematocrit 34.5 % (37.0-53.0); Hemoglobin* 11.2 gm/dL (13.5-17.5); Immature Granulocytes Abs Auto 0.37 K/uL (0.00-0.30); Lymphocytes Percent Auto 9.1 % (20-44); Mean Corpuscular HGB Conc 33 gm/dL (32-36); Mean Corpuscular Hemoglobin 33 pg (26-34); Mean Corpuscular Volume 100 fL (80-100); Monocytes Percent Auto 8.9 % (0.0-11.0); Neutrophils Percent Auto 77.4 % (42.0-72.0); Platelet Count* 330 K/uL (140-440); RDW Coefficient of Variation % 13.1 % (11.5-15.5); Red Blood Count 3.44 m/uL (4.30-5.90); White Blood Count* 10.03 K/uL (4.50-11.00)
--- OUTSIDE RECORDS SUMMARY | 2022-04-13 11:57 | XMS_ITS | Encounter Summary ---
:1955 Author Organization [facility] Address [address] [place] [address] Care Team Providers Name Role Phone Elsewhere, Pcp Primary Care Provider Unavailable Encounter Details Date Type Department Care Team Description 12/13/2021 Documentation Curt Anju [facility] Mei Plasencia for Transplantation and Lynn WyattS. Clinical Regeneration in [address] [place] [address] [place] [phone] [place] [phone] Social History Tobacco Use Types Packs/Day Years [...] or relatives? How often do you attend anglican or More than 4 times per year 12/15/2021 christian services? Do you belong to any clubs or No 12/15/2021 organizations such as anglican groups, unions, fraternal or athletic groups, or [...] What is the highest level of school you have Some college, n o degree 02/25/2019 completed or the highest degree you have received? 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 - 12/13/2021 8:23 AM CDT DEMOGRAPHIC INFORMATION Patient Name: Bruce Singh Clinic Number: [id number] Age: 66 y.o. Birthdate: 1955 Sex: male Service Date/Time: 12/17/21 8:36 AM CDT Transplant Infectious Diseases Consultation Service-Miscellaneous Note SUBJECTIVE CHIEF COMPLAINT/REASON FOR VISIT Antifungal therapy for possible pulmonary Aspergillosis. HISTORY OF PRESENT ILLNESS Mr. Singh was going to be picking up his prescription for Voriconazole therapy. The copay for Voriconazole was much more affordable to him. He started the medication the evening of December 14, 2021. Trung Plasencia P.A.-C., M.S. documented in this encounter Plan of Treatment Upcoming Encounters Date Type Specialty Care Team Description 04/24/2022 Appointment Laboratory Medicine Angélica Granger P.A.-C. [address] [place] [phone] 04/25/2022 Office Visit Otorhinolaryngology Gosch, Dex Azevedo APRN, C.N.P., M.S.N. [address] [place] [phone] 05/08/2022 Appointment Laboratory Medicine Angélica Granger P.A.-C. [address] [place] [phone] 05/08/2022 Clinical Admitting/Central Communication Scheduling 05/10/2022 Appointment Radiology Jeremie Rose M.D. [address] [place] [phone] 05/10/2022 Comprehensive Visit Orthopedic Surgery Warner Graves M.D. [address] [place] [phone] 05/22/2022 Appointment Laboratory Medicine Angélica Granger P.A.-C. [address] [place] [phone] 06/05/2022 Appointment Laboratory Medicine Angélica Granger P.A.-C. [address] [place] [phone] 06/19/2022 Appointment Laboratory Medicine Angélica Granger P.A.-C. [address] [place] [phone] 07/03/2022 Appointment Laboratory Medicine Angélica Granger P.A.-C. [address] [place] [phone] 07/17/2022 Appointment Laboratory Medicine Angélica Granger P.A.-C. [address] [place] [phone] 07/31/2022 Appointment Laboratory Medicine Angélica Granger P.A.-C. [address] [place] [phone] 08/14/2022 Appointment Laboratory Medicine Angélica Granger P.A.-C. [address] [place] [phone] 08/28/2022 Appointment Laboratory Medicine Angélica Granger P.A.-C. [address] [place] [phone] documented as of this encounter Visit Diagnoses Not on filedocumented in this encounter Additional Health Concerns Assessment Noted Time PHQ-9 Depression Total Score: 4 11/28/2020 10:17 AM CD T documented as of this encounter Care Teams Shot Peening Operator Relationship Specialty Start Date End Date Elsewhere, Pcp PCP - General Family Medicine 07/29/17 [facility] - Laboratory Medicine 04/12/[address] [address] documented as of this encounter
--- OUTSIDE RECORDS SUMMARY | 2022-04-13 11:57 | XMS_ITS | Encounter Summary ---
:1955 Author Organization [facility] Address [address] [place] [address] Care Team Providers Name Role Phone Elsewhere, Pcp Primary Care Provider Unavailable Encounter Details Date Type Department Care Team Description 12/19/2021 Hospital Encounter Department of Angélica Granger ant Liver (HCC); Laboratory Medicine J PDemetriusADurgaC. Medication Therapy [facility] Not Anticoa gulant in [address] [phone] [place], [place] [phone] (Work) [phone] Social History Tobacco Use Types Packs/Day Years [...] More than 4 times per year 12/15/2021 jewish services? 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 Medication Therapy [facility] Not Anticoagulant sulfamethoxazole-trimeth Take 1 tablet by 30 tablet 0 12/1001/09/2022 oprim (BACTRIM,SEPTRA) mouth daily. Take 400-80 mg per tablet at bedtime, after dialysis. tacrolimus (PROGRAF) 0.5 Take 2 capsules (1 360 capsule 3 12/21/2021 mg capsuleIndications: mg total) by mouth Transplant [...] Appointment Laboratory Medicine Angélica Granger P.A.-C. 200 [place] [phone] 04/25/2022 Office Visit Otorhinolaryngology Dex Matta APRN, C.N.P., M.S.N. [address] [place] [phone] 05/08/2022 Appointment Laboratory Medicine Angélica Granger P.A.-C. [address] [place] [phone] 05/08/2022 Clinical Admitting/Central Communication Scheduling 05/10/2022 Appointment Radiology Jeremie Rose M.D. [address] [place] [phone] 05/10/2022 Comprehensive Visit Orthopedic Surgery Warner Graves M.D. [address] [place] [phone] 05/22/2022 Appointment Laboratory Medicine Angélica Granger P.A.-C. [address] [place] [phone] 06/05/2022 Appointment Laboratory Medicine Angélica Granger P.A.-C. [address] [place] [phone] 06/19/2022 Appointment Laboratory Medicine Angélica Granger P.A.-C. [address] [place] [phone] 07/03/2022 Appointment Laboratory Medicine Angélica Granger P.A.-C. [address] [place] [phone] 07/17/2022 Appointment Laboratory Medicine Angélica Granger P.A.-C. [address] [place] [phone] 07/31/2022 Appointment Laboratory Medicine Angélica Granger P.A.-C. [address] [place] [phone] 08/14/2022 Appointment Laboratory Medicine Angélica Granger P.A.-C. [address] [place] [phone] 08/28/2022 Appointment Laboratory Medicine Angélica Granger P.A.-C. [address] [place] [phone] documented as of this encounter Procedures Procedure Name Priority Date/Time Associated Diagnosis Comme nts GLUCOSE, FASTING, S/P Routine 12/19/2021 8:36 Transplant Liver Results for this AM CDT (HCC) procedure are in Medication Therapy the resul ts Shook Machine Operator Not section. Anticoagulant CMV DNA DETECT/QUANT, Routine 12/19/2021 8:35 Transplant Liver Results for this P AM CDT (HCC) procedure are in Medication Therapy the resul ts [facility] Not section. Anticoagulant TACROLIMUS LEVEL, B Routine 12/19/2021 8:35 Transplant Liver R esults for this AM CDT (HCC) procedure are in Medication Therapy the resul ts [facility] Not section. Anticoagulant CBC WITHOUT Routine 12/19/2021 8:35 Transplant Liver Results for this DIFFERENTIAL, B AM CDT (HCC) procedure are in Medication Therapy the resul ts Shook Machine Operator Not section. Anticoagulant COMPREHENSIVE Routine 12/19/2021 8:35 Transplant Liver Results for this METABOLIC PANEL, S/P AM CDT (HCC) procedure are in Medication Therapy the resul ts [facility] Not section. Anticoagulant documented in this encounter Results Glucose, Fasting (12/19/2021 8:36 AM CDT) athologist Signature Glucose, P 96 70 - 100 12/19/2021 [facility] mg/dL 8:53 AM CDT Last Intake 13 hr 12/19/2021 [facility] 8:36 AM CDT Specimen Anatomical Collection Method Collection Time Receive d Time (Source) Location / / Volume Laterality Blood (Blood, 12/19/2021 8:36 AM 12/20/19 8:37 Venous) CDT AM CDT Angélica Granger P.A.-C. LAB BLOOD NON ADD-ON Performing Organization Address City/[facility]/ZIP Code Phon e Number [facility]- [address] [place] [address] [place] [address] System in [place] [address] [address] Tacrolimus, B (12/19/2021 8:35 AM CDT) athologist Signature Tacrolimus, B 7.8 5.0-15.0 12/20/2021 [facility] (Trough) 10:40 AM CDT ng/mL Comment: ----ADDITIONAL INFORMATION---- Target [...] performa nce characteristics determined by [facility] in a manner consistent with CLIA requirements. This test has not been cleared or approved by the U.S. Mer d and Drug Administration. Specimen Anatomical Collection Method Collection Time Receive d Time (Source) Location / / Volume Laterality Blood (Blood, 12/19/2021 8:35 AM 12/21/19 7:30 Venous) CDT AM CDT Angélica Granger P.A.-C. LAB BLOOD NON ADD-ON Performing Organization Address City/State/ZIP Code Phon e Number [facility] [address] [place] [address] [address] [facility] [place] [address] Laboratory Medicine and Pathology [address] [place] (ABNORMAL) CMV DNA Detect / Quant, Plasma (12/19/2021 8:35 AM CDT) Patholo gist Method Time Signature CMV DNA <35 (A) Undetected 12/20/2021 [facility] Detect/Quant, IU/mL 1:21 PM CDT P Comment: Result in log [...] u sing the tika CMV test ([employer] with the tika 6800 System. Specimen Anatomical Collection Method Collection Time Receive d Time (Source) Location / / Volume Laterality Blood (Blood, 12/19/2021 8:35 AM 12/21/19 7:18 Venous) CDT AM CDT Angélica Granger P.A.-C. LAB MICROBIOLOGY - BLOOD ORD ERABLES Performing Organization Address City/State/ZIP Code Phon e Number [facility] [address] [place], [place] [address] [address] [facility] [place] [address] Laboratory Medicine and Pathology [address] [place] (ABNORMAL) Comprehensive Metabolic Panel (12/19/2021 8:35 AM CDT) Analysis Performed At Patho logist Time Signature Potassium, P 3.9 3.6 - 5.2 12/19/2021 [facility] mmol/L 8:57 AM CDT Sodium, P 134 (L) 135 - 145 12/19/2021 [facility] mmol/L 8:57 AM CDT Chloride, P 98 98 - 107 12/19/2021 [facility] mmol/L 8:57 AM CDT Bicarbonate, P 23 22 - 29 12/19/2021 [facility] mmol/L 8:57 AM CDT Anion Gap, P 13 7 - 15 12/19/2021 [facility] 8:57 AM CDT BUN (Blood Urea 30 (H) 8 - 24 12/19/2021 [facility] Nitrogen), P mg/dL 8:57 AM CDT Creatinine 4.08 (H) 0.74 - 12/19/2021 [facility] 1.35 mg/dL 8:57 AM CDT eGFR-Black/Afri 16 (L) >=60 12/19/2021 [facility] can [place] mL/min/BSA 8:57 AM CDT Comment: ----ADDITIONAL INFORMATION---- Estimated GFR calculated using the 2009 CKD_EPI creatinine equation. eGFR Non-Black/ <15 (L) >=60 mL/min/BSA 12/19/2021 8:57 AM CDT [facility] [place] Comment: ----ADDITIONAL INFORMATION---- Estimated GFR calculated using the 2009 CKD_EPI creatinine equation. Calcium, Total, P 9.0 8.8 - 10.2 mg/dL 12/19/2021 8:57 AM CDT [facility] Glucose, P CANCELED mg/dL 12/19/2021 8:37 AM CDT CNFL Comment: Duplicate test request. Result canceled by the ancillary. Protein, Total, P 6.2 (L) 6.3 - 7.9 g/dL 12/19/2021 8:57 A M CDT [facility] Albumin, P 4.1 3.5 - 5.0 g/dL 12/19/2021 8:57 AM CDT C NFL Aspartate Aminotransferase 25 8 - 48 U/L 12/19/2021 8 :57 AM CDT [facility] (AST), P Alkaline Phosphatase, P 117 40 - 129 U/L 12/19/2021 8: 57 AM CDT [facility] Alanine Aminotransferase 17 7 - 55 U/L 12/19/2021 8:5 7 AM CDT [facility] (ALT), P Bilirubin, Total, P 0.4 <=1.2 mg/dL 12/19/2021 8:57 AM CDT [facility] Specimen Anatomical Collection Method Collection Time Receive d Time (Source) Location / / Volume Laterality Blood (Blood, 12/19/2021 8:35 AM 12/20/19 8:37 Venous) CDT AM CDT Angélica Granger P.A.-C. LAB BLOOD ADD-ON Performing Organization Address City/State/ZIP Code Phon e Number [facility]- [address] [place] [address] [place] [address] (ABNORMAL) CBC without Differential (12/19/2021 8:35 AM CDT) [facility] gist Method Time Signature Hemoglobin 10.3 (L) 13.2 - 12/19/2021 [facility] 16.6 g/dL 8:49 AM CDT Hematocrit 32.5 (L) 38.3 - 12/19/2021 [facility] 48.6 % 8:49 AM CDT Erythrocytes 3.07 (L) 4.35 - 12/19/2021 [facility] 5.65 8:49 AM CDT x10(12)/L MCV 105.9 (H) 78.2 - 12/19/2021 [facility] 97.9 fL 8:49 AM CDT RBC Distrib Width 13.5 11.8 - 12/19/2021 [facility] 14.5 % 8:49 AM CDT Platelet Count 254 135 - 317 12/19/2021 [facility] x10(9)/L 8:49 AM CDT Leukocytes 4.1 3.4 - 9.6 12/19/2021 [facility] x10(9)/L 8:49 AM CDT Specimen Anatomical Collection Method Collection Time Receive d Time (Source) Location / / Volume Laterality Blood (Blood, 12/19/2021 8:35 AM 12/20/19 8:37 Venous) CDT AM CDT Angélica Granger P.A.-C. LAB BLOOD ADD-ON Performing Organization Address City/State/[facility] Phon e Number [facility]- [address] [place] [address] Bl[address] [place], [place] [id number] [place] [address] [place] [address] [address] documented in this encounter Visit Diagnoses Diagnosis Transplant Liver (HCC) Medication Therapy [facility] Not Anticoa gulant documented in this encounter Additional Health Concerns Assessment Noted Time PHQ-9 Depression Total Score: 4 11/28/2020 10:17 AM CD T documented as of this encounter Care Teams Lithographic General Worker Relationship Specialty Start Date End Date Elsewhere, Pcp PCP - General Family Medicine 07/29/17 [facility] - Laboratory Medicine 04/12/20 [place] [address] documented as of this encounter
--- OUTSIDE RECORDS SUMMARY | 2022-04-13 11:57 | XMS_ITS | Encounter Summary ---
:1955 Author Organization [facility] Address [address] [place] [address] Care Team Providers Name Role Phone Elsewhere, Pcp Primary Care Provider Unavailable Encounter Details Date Type Department Care Team Description 12/10/2021 Office Visit Randal Coon [facility] Monserrat Yeung (Primary and Clinical Regeneration M.D. Dx) in [facility] jose [address] [facility] [address] [place] [phone] Social History Tobacco Use Types Packs/Day Years [...] More than 4 times per year 12/15/2021 shinto services? 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 - 12/10/2021 4:00 PM CDT KIDNEY TRANSPLANT WAITLIST RE-EVALUATION VISIT- Wrap UP Visit REASON FOR VISIT: Bruce Singh is a 66 y.o. male who presents for kidney transplant wait list re-evaluation visit. HISTORY OF PRESENT ILLNESS: He was last seen here by Dr. Chavez 11/27/2020. 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 He has been on the kidney transplant waiting list since March of 2018. 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 He also has a history of renal artery stenosis status post stenting. Patient has been on dialysis since May 2021. He dialyzes through an AV fistula. The patient's recent history is notable for recent infectious complications. He developed Serratia pneumonia, with Cdiff colitis as well as recurrence of CMV in the past year. He was treated with IV ganciclovir and tr ansition to oral. The patient was hospitalized in September of this year with Serratia pneumonia. This was in the setting of progressively worsening cough and fatigue. He was treated with Bactrim, but unfortunately cough did not improve. He was evaluated last week as part of his annual transplant follow-up. He noted continued chronic cough. On chest CT, he was found to have worsening micronodular opacities in the lingula and bilateral lower lobes with bronchial wall thickening. He was referred to Pulmonary Medicine, and underwent bronchoscopy with bronchoalveolar lavage. Bacterial culture showed Serratia. Aspergillus antigen is elevated. The patient visited with Trung Plasencia in Infectious Disease today, and has been initiated on posaconazole while awaiting the results of the fungal culture. Additionally, his Bactrim is being resumed. CMV was undetectable, and he will discontinue valganciclovir. The patient also had a stress echocardiogram today which was negative for any ischemia. 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 Singh for a wrap-up visit for his kidney transplant evaluation. He has been struggling with multiple infectious complications, and visited with Infectious Disease today. He is currently going to be initiated on posaconazole and resumed on Bactrim. Fortunately his CMV is now undetectable and has been successfully treated. Given the concern for ongoing fungal infection, he may require an activation on the wait list at this until his infection is successfully treated. No other pending tests. Transplant Evaluation Summary: 1. 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 Recurrent risk: low 3. Listing Date: 04/07/2018 4. C-peptide: N/A 5. cPRA: pending 6. Previous transplants: orthotopic liver transplant x 2; in 1998 and 2012; on triple immunosuppression 7. Dialysis: No 8. Diabetes?: none 9. Pancreas Candidate?: N/A 10. BMI: Body mass index is 24.89 kg/m??. 11. Functional Status/Karnofsky Score: 80% 12. EPTS: 66%% 13. Cardiopulmonary evaluation: Stress echo negativey, CT chest suggestive of PNA, Bronch scheduled tomorrow. 14. 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 Follow-up by Dermatology. Last seen Dermatology on 11/05/2020. In situ Squamous cell lesion removed. 15. [place] renal imaging if on dialysis >3 years: CT scan on 11/27/20 was negative for lesions. 16. Health maintenance: Colonoscopy up to date, last in 2018, PSA is normal. 17. History of serious infections: Serratia PNA 09/2021. Bronch scheduled tomorrow given persistence of symptoms. Hx recurrent C diff. CMV viremia and colitis 05/2021. 18. Urinary bladder dysfunction: 19. Hematology/coagulation issues: Anemia secondary to iron deficiency anemia and CKD. On ESAs. 20. Psychosocial: PACT:2 / Other Issues: Bipolar disorder. Stable. 21. Surgical Issues: Prior liver transplantation x 2. 22. Peripheral Vascular Disease?: No 23. Pending issues: Fungal culture and ID plan Answers for HPI/ROS submitted by the patient on 12/04/2021 Fatigue: Yes No eye issues: Yes Sinus congestion: Yes Swelling in the legs or feet: Yes Shortness of breath: Yes Coughing up mucus (phlegm): Yes No GI issues: Yes Muscle pain/stiffness: Yes Change in mole or skin spot: Yes Light-headedness: Yes Change in sexual drive (decreased libido): Yes Excessive daytime sleepiness/tiredness: Yes Bruises/bleeds easily: Yes Difficulty urinating: Yes Anjana Martinez M.D. - 12/10/2021 4:00 PM CDT Patient was seen and discussed with Dr. Obrien. Please refer to her note for further details. Patientwas diagnosed with possible Aspergillus pneumonia, based on the positive Aspergillus antigen test. He is currently on posaconazole. Fungal cultures are pending. His bacterial culture showed Serratia. He also has had recent reactivation of CMV, in the setting of high dose of steroids. He would need to be re-evaluated after treatment for pneumonia is completed. We will also reach out to his liver doctors regarding whether any further adjustments of immunosuppression is needed for the liver transplant. documented in this encounter Plan of Treatment Upcoming Encounters Date Type Specialty Care Team Description 04/24/2022 Appointment Laboratory Medicine Angélica Granger P.A.-C. [address] [place] [phone] 04/25/2022 Office Visit Otorhinolaryngology Dex Matta APRN, C.N.P., M.S.N. [address] [place] [phone] 05/08/2022 Appointment Laboratory Medicine Angélica Granger P.A.-C. [address] [place] [phone] 05/08/2022 Clinical Admitting/Central Communication Scheduling 05/10/2022 Appointment Radiology Jeremie Rose M.D. [address] [place] [address] [phone] 05/10/2022 Comprehensive Visit Orthopedic Surgery Warner Graves M.D. [address] [place] [address] [phone] 05/22/2022 Appointment Laboratory Medicine Angélica Granger P.A.-C. [address] [place] [address] [phone] 06/05/2022 Appointment Laboratory Medicine Angélica Granger P.A.-C. [address] [place] [address] [phone] 06/19/2022 Appointment Laboratory Medicine Angélica Granger P.A.-C. [address] [place] [phone] 07/03/2022 Appointment Laboratory Medicine Angélica Granger P.A.-C. [address] [place] [phone] 07/17/2022 Appointment Laboratory Medicine Angélica Granger P.A.-C. [address] [place] [phone] 07/31/2022 Appointment Laboratory Medicine Angélica Granger P.A.-C. [address] [place] [phone] 08/14/2022 Appointment Laboratory Medicine Angélica Granger P.A.-C. [address] [place] [phone] 08/28/2022 Appointment Laboratory Medicine Angélica Granger P.A.-C. [address] [place] [phone] documented as of this encounter Visit Diagnoses Diagnosis Awaiting Organ Transplant - Primary documented in this encounter Additional Health Concerns Assessment Noted Time PHQ-9 Depression Total Score: 4 11/28/2020 10:17 AM CD T documented as of this encounter Care Teams College Advisor Relationship Specialty Start Date End Date Elsewhere, Pcp PCP - General Family Medicine 07/29/17 [facility] - Laboratory Medicine 04/12/[address] [address] documented as of this encounter
--- OUTSIDE RECORDS SUMMARY | 2022-04-13 11:57 | XMS_ITS | Encounter Summary ---
:1955 Author Organization [facility] Address [address] [place] [address] Care Team Providers Name Role Phone Elsewhere, Pcp Primary Care Provider Unavailable Reason for Visit Reason Comments Med Refill Encounter Details Date Type Department Care Team Description 12/14/2021 Refill [facility] Anju [facility] for DezielTrung Med Refill Transplantation and Clinical P.A .-C., M.S. Regeneration in [place], [facility] [address] [place], [place] [address] [place] [phone] [place] [address] [phone] Social History Tobacco Use Types Packs/Day Years [...] at Date Recorded Male 05/16/2020 4:[address]ARER documented as of this encounter Plan of Treatment Upcoming Encounters Date Type Specialty Care Team Description 04/24/2022 Appointment Laboratory Medicine Angélica Granger, P.A.-C. [address] [place] [address] [phone] 04/25/2022 Office Visit Otorhinolaryngology Dex Matta, RAMONA, C.N.P., M.S.N. [address] [place] [address] [phone] 05/08/2022 Appointment Laboratory Medicine Angélica Granger, P.A.-C. [address] [place] [address] [phone] 05/08/2022 Clinical Admitting/Central Communication Scheduling 05/10/2022 Appointment Radiology Jeremie Rose M.D. [address] [place] [phone] 05/10/2022 Comprehensive Visit Orthopedic Surgery Warner Graves M.D. [address] [place] [phone] 05/22/2022 Appointment Laboratory Medicine Angélica Granger P.A.-C. [address] [place] [phone] 06/05/2022 Appointment Laboratory Medicine Angélica Granger P.A.-C. [address] [place] [phone] 06/19/2022 Appointment Laboratory Medicine Angélica Granger P.A.-C. [address] [place] [phone] 07/03/2022 Appointment Laboratory Medicine Angélica Granger P.A.-C. [address] [place] [phone] 07/17/2022 Appointment Laboratory Medicine Angélica Granger P.A.-C. [address] [place] [phone] 07/31/2022 Appointment Laboratory Angélica Royal P.A.-C. [address] [place] [phone] 08/14/2022 Appointment Laboratory Angélica Royal P.A.-C. [address] [place] [phone] 08/28/2022 Appointment Laboratory Angélica Royal P.A.-C. [address] [place] [phone] documented as of this encounter Visit Diagnoses Not on filedocumented in this encounter Additional Health Concerns Assessment Noted Time PHQ-9 Depression Total Score: 4 11/28/2020 10:17 AM CD T documented as of this encounter Care Teams It Analyst Relationship Specialty Start Date End Date Elsewhere, Pcp PCP - General Family Medicine 07/29/17 [facility] - Laboratory Medicine 04/12/20 [place] [address] documented as of this encounter
--- OUTSIDE RECORDS SUMMARY | 2022-04-13 11:57 | XMS_ITS | Encounter Summary ---
:1955 Author Organization [facility] Address [address] [place] [address] Care Team Providers Name Role Phone Elsewhere, Pcp Primary Care Provider Unavailable Reason for Visit Episode Based Medications (Routine) - Closed Specialty Diagnoses / Procedures Referred By Contact Refer red To Contact Diagnoses Transplant Liver (HCC) Anemia Colitis Cytomegalovirus (HCC) Tiffanie Wan M.D. [facility] [address] [place] [address] [address] [place] [phone] Referral ID Status Reason Start Date Expiration Date Visits Requ ested Visits Authorized [id number] Closed 12/10/2021 12/10/2022 99 99 Encounter Details Date Type Department Care Team Description 12/10/2021 Infusion Department of Tiffanie Wan Colitis C ytomegalovirus (HCC) (Primary Dx); Infusion Therapy in M.D. Anemia; [place], [place] [address] [place] [address] Transplant Liver (HCC) [address] [place] [phone] Social History Tobacco Use Types Packs/Day Years [...] or relatives? How often do you attend quaker or More than 4 times per year 12/15/2021 yarsani services? 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 [address] [place] [phone] 04/25/2022 Office Visit Otorhinolaryngology Dex Matta APRN CDemetriusNJuan Miguel, M.S.N. [address] [place] [phone] 05/08/2022 Appointment Laboratory Medicine Angélica Granger P.A.-C. [address] [place] [phone] 05/08/2022 Clinical Admitting/Central Communication Scheduling 05/10/2022 Appointment Radiology Jeremie Rose M.D. [address] [place] [phone] 05/10/2022 Comprehensive Visit Orthopedic Surgery Warner Graves M.D. [address] [place] [phone] 05/22/2022 Appointment Laboratory Medicine Angélica Granger P.A.-C. [address] [place] [phone] 06/05/2022 Appointment Laboratory Medicine Angélica Granger P.A.-C. [address] [place] [phone] 06/19/2022 Appointment Laboratory Medicine Angélica Granger P.A.-C. [address] [place] [phone] 07/03/2022 Appointment Laboratory Medicine Angélica Granger P.A.-C. [address] [place] [phone] 07/17/2022 Appointment Laboratory Medicine Angélica Granger P.A.-C. [address] [place] [phone] 07/31/2022 Appointment Laboratory Medicine Bárbara Angélica Stern P.A.-C. [address] [place] [phone] 08/14/2022 Appointment Laboratory Medicine Angélica Granger P.A.-C. [address] [place] [phone] 08/28/2022 Appointment Laboratory Medicine Angélica Granger P.A.-C. [address] [place] [phone] documented as of this encounter Visit Diagnoses Diagnosis Colitis Cytomegalovirus (HCC) - Primary Anemia Transplant Liver (HCC) documented in this encounter Administered Medications Inactive Administered Medications - up to 3 most recent administrations Medication Order MAR Action Action Date Dose Rate Site cilgavimab injection 300 mg Given 12/10/2021 4:37 300 mg Right Ventrogluteal (EVUSHELD) PM CDT 300 mg, intramuscular, Once, On 12/10/21 at 1530, For 1 dose, Patients, parents, and caregivers EUA fact sheet: https://www.fda.gov/media/1 51893/download Do not shake the vials. Discard the vials if the solution is cloudy, discolored or visible particles are observed. For a 150 mg-150 mg dose, withdraw 1.5 mL of tixagevimab solution and 1.5 mL of cilgavimab solution into TWO separate syringes. For a 300 mg-300 mg dose, withdraw 3 mL of tixagevimab solution and 3 mL of cilgavimab solution into TWO separate syringes. Administer immediately. If immediate administration is not possible, use the prepared syringes within 4 hours. Administer as two separate, consecutive IM injections at different injection sites, preferably one in each of the gluteal muscles, one after the other. Monitor patients for hypersensitivity reactions (including anaphylaxis) after injections and observe for at least 1 hour. , Criteria: Adult and Pediatric patients (Pediatrics: >= 12 years and >= 40 kg), Authorizing service: ID, Meeting the following: Not currently infected and without recent exposure to SARS-CoV-2, Meeting one of the following: Pre-exposure prophylaxis for patient with moderate to severe immune compromise and may not mount an adequate immune response to the vaccine, AND meeting at least one of the following: Solid organ transplant recipient taking immunosuppressive therapy tixagevimab injection 300 mg (EVUSHELD) Given 12/10/2021 300 Left 300 mg, intramuscular, Once, On Fri12/10/21 4:37 PM CDT mg Ventrogluteal at 1530, For 1 dose, Patients, parents, and caregivers EUA fact sheet: https://www.fda.gov/media/333154/download Do not shake the vials. Discard the vials if the solution is cloudy, discolored or visible particles are observed. For a 150 mg-150 mg dose, withdraw 1.5 mL of tixagevimab solution and 1.5 mL of cilgavimab solution into TWO separate syringes. For a 300 mg-300 mg dose, withdraw 3 mL of tixagevimab solution and 3 mL of cilgavimab solution into TWO separate syringes. Administer immediately. If immediate administration is not possible, use the prepared syringes within 4 hours. Administer as two separate, consecutive IM injections at different injection sites, preferably one in each of the gluteal muscles, one after the other. Monitor patients for hypersensitivity reactions (including anaphylaxis) after injections and observe for at least 1 hour. , Criteria: Adult and Pediatric patients (Pediatrics: >= 12 years and >= 40 kg), Authorizing service: ID, Meeting the following: Not currently infected and without recent exposure to SARS-CoV-2, Meeting one of the following: Pre-exposure prophylaxis for patient with moderate to severe immune compromise and may not mount an adequate immune response to the vaccine, AND meeting at least one of the following: Solid organ transplant recipient taking immunosuppressive therapy documented in this encounter Additional Health Concerns Assessment Noted Time PHQ-9 Depression Total Score: 4 11/28/2020 10:17 AM CD T documented as of this encounter Care Teams Loader Operator/Ground Leader Relationship Specialty Start Date End Date Elsewhere, Pcp PCP - General Family Medicine 07/29/17 [facility] - Laboratory Medicine 04/12/20 [place] [address] documented as of this encounter
--- OUTSIDE RECORDS SUMMARY | 2022-04-13 11:57 | XMS_ITS | Encounter Summary ---
:1955 Author Organization [facility] Address [address] [place] [address] Care Team Providers Name Role Phone Elsewhere, Pcp Primary Care Provider Unavailable Reason for Visit Reason Comments Pre-visit Intake Encounter Details Date Type Department Care Team Description 12/18/2021 Clinical Communication Visit Review in Pr e-visit Intake [place], [place] [address] [place], [place] [address] Social History Tobacco Use Types Packs/Day Years [...] or relatives? How often do you attend voodoo or More than 4 times per year 12/15/2021 yarsanism services? 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 [address] [place] [address] [phone] 04/25/2022 Office Visit Otorhinolaryngology Dex Matta, HEALTHCARE REPRESENTATIVE, C.N.P., M.S.N. [address] [place] [phone] 05/08/2022 Appointment Laboratory Medicine Angélica Granger P.A.-CDemetrius [address] [place] [address] [phone] 05/08/2022 Clinical Admitting/Central Communication Scheduling 05/10/2022 Appointment Radiology Jeremie Rose M.D. [address] [place] [phone] 05/10/2022 Comprehensive Visit Orthopedic Surgery Warner Graves M.D. [address] [place] [address] [phone] 05/22/2022 Appointment Laboratory Medicine Angélica Granger P.A.-CDemetrius [address] [place] [address] [phone] 06/05/2022 Appointment Laboratory Medicine Angélica Granger P.A.-C. [address] [place] [phone] 06/19/2022 Appointment Laboratory Medicine Angélica Granger P.A.-C. [address] [place] [phone] 07/03/2022 Appointment Laboratory Medicine Angélica Granger P.A.-C. [address] [place] [phone] 07/17/2022 Appointment Laboratory Medicine Angélica Granger P.A.-C. [address] [place] [phone] 07/31/2022 Appointment Laboratory Medicine Angélica Granger P.A.-C. [address] [place] [phone] 08/14/2022 Appointment Laboratory Medicine Angélica Granger P.A.-C. [address] [place] [phone] 08/28/2022 Appointment Laboratory Medicine Angélica Granger P.A.-C. [address] [place] [phone] documented as of this encounter Visit Diagnoses Not on filedocumented in this encounter Additional Health Concerns Assessment Noted Time PHQ-9 Depression Total Score: 4 11/28/2020 10:17 AM CD T documented as of this encounter Care Teams Dynamics Ax Consultant Relationship Specialty Start Date End Date Elsewhere, Pcp PCP - General Family Medicine 07/29/17 [facility] - Laboratory Medicine 04/12/[address] [address] documented as of this encounter
--- OUTSIDE RECORDS SUMMARY | 2022-04-13 11:57 | XMS_ITS | Encounter Summary ---
:1955 Author Organization [facility] Address [address] [place] [address] Care Team Providers Name Role Phone Elsewhere, Pcp Primary Care Provider Unavailable Reason for Visit Reason Comments Phone Contact Pharmacy Encounter Details Date Type Department Care Team Description 12/11/2021 Clinical Curt Moss, Phone Contact Communication Center for Yolie Millard (Pharmacy) Transplantation and R.N. Clinical Regeneration [address] [place] [address] 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 - 12/11/2021 11:03 AM CDT I spoke with Carmen from 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 Carmen advised that the PA would be approved then and this medication would be filled for Bruce. Telephone Encounter - Meena Aguilar - 12/11/2021 10:05 AM CDT Pharmacist with [employer] [facility] calling to speak with nursing. She is working at [facility] for patients Posaconazole. She needs to know if this is being used primarily for the treatment ofCMV, or if there are other indications. Sending high priority as [employer] [facility] is requesting a 24 hour turn around time for the PA. Ref# [id number] documented in this encounter Plan of Treatment Upcoming Encounters Date Type Specialty Care Team Description 04/24/2022 Appointment Laboratory Medicine Angélica Garnger P.A.-C. [address] [place] [address] 04/25/2022 Office Visit Otorhinolaryngology Dex Matta APRN C.NDemetriusP., M.S.N. [address] [place] [phone] 05/08/2022 Appointment Laboratory Medicine Angélica Granger P.A.-C. [address] [place] [phone] 05/08/2022 Clinical Admitting/Central Communication Scheduling 05/10/2022 Appointment Radiology Jeremie Rose M.D. [address] [place] [address] [phone] 05/10/2022 Comprehensive Visit Orthopedic Surgery Warner Graves M.D. [address] [place] [address] [phone] 05/22/2022 Appointment Laboratory Medicine Angélica Granger P.A.-C. [address] [place] [address] [phone] 06/05/2022 Appointment Laboratory Medicine Angélica Granger P.A.-C. [address] [place] [address] [phone] 06/19/2022 Appointment Laboratory Medicine Angélica Granger P.A.-C. [address] [place] [address] [phone] 07/03/2022 Appointment Laboratory Medicine Angélica Granger P.A.-C. [address] [place] [phone] 07/17/2022 Appointment Laboratory Medicine Angélica Granger P.A.-C. [address] [place] [phone] 07/31/2022 Appointment Laboratory Medicine Angélica Granger P.A.-C. [address] [place] [phone] 08/14/2022 Appointment Laboratory Medicine Angélica Granger P.A.-C. [address] [place] [phone] 08/28/2022 Appointment Laboratory Medicine Angélica Granger P.A.-C. [address] [place] [phone] documented as of this encounter Visit Diagnoses Not on filedocumented in this encounter Additional Health Concerns Assessment Noted Time PHQ-9 Depression Total Score: 4 11/28/2020 10:17 AM CD T documented as of this encounter Care Teams Rubber Chemist Relationship Specialty Start Date End Date Elsewhere, Pcp PCP - General Family Medicine 07/29/17 [facility] - Laboratory Medicine 04/12/[address] [address] documented as of this encounter
--- OUTSIDE RECORDS SUMMARY | 2022-04-13 11:57 | XMS_ITS | Encounter Summary ---
:1955 Author Organization [facility] Address [address] [place] [address] Care Team Providers Name Role Phone Elsewhere, Pcp Primary Care Provider Unavailable Reason for Referral Outpatient (Routine) - Closed Specialty Diagnoses / Procedures Referred By Contact Refer red To Contact Pulmonary Medicine Diagnoses Transplant Liver (HCC) Medication Therapy Mcc Not Anticoagulant Immunodeficiency (HCC) Tiffanie Wan M.D. [address] [address] Referral ID Status Reason Start Date Expiration Date Visits V isits Requested Authorized [id number] Closed Specialty 12/17/2021 12/17/2022 1 1 Services Required Scheduling Instructions Please schedule with Dr Simon 12/20 per patient request. Thanks SPECIAL- please schedule with Dr Simon on 12/20. Thanks Reason for Visit Reason Comments Phone Contact Dr. Simon follow up Encounter Details Date Type Department Care Team Description 12/17/2021 Clinical Curt Moss, Phone Contact (Dr[facility] for [facility]er follow up) Transplantation and R.N. Clinical [address] [place] [phone] Social History Tobacco Use Types Packs/Day Years [...] or the highest technical, or vocational p [facility] degree you have received? 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 Telephone Encounter - Rachelle Buckner - 12/17/2021 10:29 AM CDT Patient would like to see Dr. Simon on 12/20 for a follow up visit after he had some testing done that he requested. Can you please issue an order. Scheduling will call to confirm date and time once order is signed. Thank you documented in this encounter Plan of Treatment Upcoming Encounters Date Type Specialty Care Team Description 04/24/2022 Appointment Laboratory Medicine Angélica Granger P.A.-C. [address] [place] [phone] 04/25/2022 Office Visit Otorhinolaryngology Dex Matta APRN, C.N.P., M.S.N. [address] [place] [phone] 05/08/2022 Appointment Laboratory Medicine Angélica Granger P.A.-C. [address] [place] [phone] 05/08/2022 Clinical Admitting/Central Communication Scheduling 05/10/2022 Appointment Radiology Jeremie Rose M.D. [address] [place] [phone] 05/10/2022 Comprehensive Visit Orthopedic Surgery Warner Graves M.D. [address] [place] [phone] 05/22/2022 Appointment Laboratory Medicine Angélica Granger P.A.-C. [address] [place] [phone] 06/05/2022 Appointment Laboratory Medicine Angélica Granger P.A.-C. [address] [place] [phone] 06/19/2022 Appointment Laboratory Medicine Angélica Granger P.A.-C. [address] [place] [phone] 07/03/2022 Appointment Laboratory Medicine Angélica Granger P.A.-C. [address] [place] [phone] 07/17/2022 Appointment Laboratory Medicine Angélica Granger P.A.-C. [address] [place] [phone] 07/31/2022 Appointment Laboratory Medicine Angélica Granger P.A.-C. [address] [place] [phone] 08/14/2022 Appointment Laboratory Medicine Angélica Granger P.A.-C. [address] [place] [phone] 08/28/2022 Appointment Laboratory Medicine Angélica Granger P.A.-C. [address] [place] [phone] Scheduled Referrals Name Type Priority Associated Diagnoses Order S [facility] Pulmonary Medicine Outpatient Referral Routine Transplant Live r Expected: - General consult (HCC) 12/20/2021 (clinic) Medication Therapy (Approxim ate), Preanalytics Team Lead Not Expires: Anticoagulant 03/19/2023 Immunodeficiency (HCC) documented as of this encounter Visit Diagnoses Diagnosis Transplant Liver (HCC) - Primary Medication Therapy Mcc Not Anticoa gulant Immunodeficiency (HCC) documented in this encounter Additional Health Concerns Assessment Noted Time PHQ-9 Depression Total Score: 4 11/28/2020 10:17 AM CD T documented as of this encounter Care Teams Switch Tender Relationship Specialty Start Date End Date Elsewhere, Pcp PCP - General Family Medicine 07/29/17 [facility] - Laboratory Medicine 04/12/[address] [address] documented as of this encounter
--- OUTSIDE RECORDS SUMMARY | 2022-04-13 11:57 | XMS_ITS | Encounter Summary ---
:1955 Author Organization [facility] Address [address] [place] [address] Care Team Providers Name Role Phone Elsewhere, Pcp Primary Care Provider Unavailable Reason for Visit Transplant (Routine) - Closed Specialty Diagnoses / Procedures Referred By Contact Refer red To Contact Transplant Surgery / Diagnoses Chronic Kidney Disease Stage 5 GFR Less Than 15 Dialysis Dependent (HCC) Pretransplant Recipient Evaluation Exam Willis Herrera [facility] [address] [place] [phone] Referral ID Status Reason Start Date Expiration Date Visits Requ ested Visits Authorized [id number] Closed 09/27/2021 09/27/2022 1 1 Encounter Details Date Type Department Care Team Description 12/10/2021 Nurse Only Curt Rene [facility] Willis Urbina M.D. [address] [place] [phone] for Transplantation and Kavita Davis R.N., C.C.T.C. Clinical Regeneration in [place], [place] [address] [place] [phone] Social History Tobacco Use Types Packs/Day [...] or relatives? How often do you attend zoroastrianism or More than 4 times per year 12/15/2021 jainism services? 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 - 12/10/2021 7:30 AM CDT Met with Bruce Singh for waitlist re-evaluation and education as a kidney recipient. The patient education provided at the time of their evaluation appointments was reinforced and discussed. Bruce Singh is a 66 y.o. 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 The following information was reviewed with the patient: ??? The evaluation process including roles of the transplant team, selection criteria and the multidisciplinary selection committee. ??? Pre-transplant and health maintenance ??? Waitlist management including UNOS allocation and average waiting times for transplant. ? ? donor organ offers such as KDPI >85%, HERNÁN, DCD, donors with PHS risk criteria, Hepatitis B and Hepatitis C. o KDPI consent was reviewed. Patient previously [] agreed [] disagreed to participate in the KDPI program. - KDPI consent obtained: [] Yes [] No [] Mailed to patient o KPD consent was reviewed. Patient previously [x] agreed [] disagreed to participate in the KDP program. - KPD consent obtained: [] Yes [] No [] Mailed to patient o Hep C consent was reviewed. Patient agreed: [x] Yes [] No [] Mailed to patient o A to B Consent Discussed: [] Yes [x]NA [] Mailed to patient - Titer complete: [] Yes [] No []Ordered ??? Living donor options including paired donation o Identified Living Donor: [] Yes [x] No Dual Organ: [] Yes [x] No [] Unknown Immunizations were reviewed and updated. It was discussed with the patient that their information will be presented to our multidisciplinary Selection Conference for final re-approval. Learning needs assessed with no barriers identified. All questions answered. Patient verbalized understanding and was given the assigned RN Sales Ambassador's (RNCC) business card and instructed to contact RNCC with further questions or concerns. Modified Karnofsky performance status scale:70: Cares for self but unable to carry on normal activity or active work (e.g., hemodialysis-dependent at dialysis center who is able to work on days not being dialyzed; independent recipient who has not returned to pre-ESRD functional capacity)}70: Unable to work; able to live at home and care for most personal needs; varying amount of assistance needed: Cares for self but unable to carry on normal activity or active work. documented in this encounter Plan of Treatment Upcoming Encounters Date Type Specialty Care Team Description 04/24/2022 Appointment Laboratory Medicine Angélica Granger P.A.-C. [address] [place] [phone] 04/25/2022 Office Visit Otorhinolaryngology Dex Matta APRN, C.N.P., M.S.NDemetrius [address] [place] [phone] 05/08/2022 Appointment Laboratory Medicine Angélica Granger P.A.-C. [address] [place] [phone] 05/08/2022 Clinical Admitting/Central Communication Scheduling 05/10/2022 Appointment Radiology Jeremie Rose M.D. [address] [place] [phone] 05/10/2022 Comprehensive Visit Orthopedic Surgery Warner Graves M.D. [address] [place] [phone] 05/22/2022 Appointment Laboratory Medicine Angélica Granger P.A.-C. [address] [place] [phone] 06/05/2022 Appointment Laboratory Medicine Angélica Granger P.A.-C. [address] [place] [phone] 06/19/2022 Appointment Laboratory Medicine Angélica Granger P.A.-C. [address] [place] [phone] 07/03/2022 Appointment Laboratory Medicine Angélica Granger P.A.-C. [address] [place] [phone] 07/17/2022 Appointment Laboratory Medicine Angélica Granger P.A.-C. [address] [place] [phone] 07/31/2022 Appointment Laboratory Medicine Angélica Granger P.A.-C. [address] [place] [phone] 08/14/2022 Appointment Laboratory Medicine Angélica Granger P.A.-C. [address] [place] [phone] 08/28/2022 Appointment Laboratory Medicine Angélica Granger P.A.-C. [address] [place] [phone] documented as of this encounter Visit Diagnoses Diagnosis Chronic Kidney Disease Stage 5 GFR Less Than 15 Dialysis Dependent (HCC) Pretransplant Recipient Evaluation Exam documented in this encounter Additional Health Concerns Assessment Noted Time PHQ-9 Depression Total Score: 4 11/28/2020 10:17 AM CD T documented as of this encounter Care Teams Potato Chip Fryer Relationship Specialty Start Date End Date Elsewhere, Pcp PCP - General Family Medicine 07/29/17 [facility] - Laboratory Medicine 04/12/20 [place] [address] documented as of this encounter
--- OUTSIDE RECORDS SUMMARY | 2022-04-13 11:57 | XMS_ITS | Encounter Summary ---
:1955 Author Organization [facility] Address [address] [place] [address] Care Team Providers Name Role Phone Elsewhere, Pcp Primary Care Provider Unavailable Encounter Details Date Type Department Care Team Description 12/11/2021 Documentation Curt Anju [facility] Mei Plasencia for Transplantation and Lynn WyattS. 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 - 12/11/2021 3:18 PM CDT DEMOGRAPHIC INFORMATION Patient Name: Bruce Singh Clinic Number: [id number] Age: 66 y.o. Birthdate: 1955 Sex: male Service Date/Time: 12/11/21 3:18 PM CDT Transplant Infectious Diseases Consultation Service-Miscellaneous Note SUBJECTIVE CHIEF COMPLAINT/REASON FOR VISIT Antifungal therapy for possible pulmonary aspergillosis. HISTORY OF PRESENT ILLNESS Please see my clinic note from yesterday for additional details. Plan was to start him on oral Posaconazole tablets for possible pulmonary aspergillosis, however, his copay for the medication is $3500.Therefore, I have placed a prescription order to his local pharmacy for Voriconazole 200 mg twice daily. I have discontinued the Posaconazole from his medication list. The same drug-drug interactions exist with Voriconazole as they did with Posaconazole. The Voriconazole should, however, be taken on an empty stomach, at least one hour prior to food or 2 hours after food. The drug requires prior authorization from his insurance company. If it is too costly, the next option would be itraconazole. A message was sent to Mr. Singh regarding the change to Voriconazole and that a prescription was sent to his local pharmacy in place of Posaconazole. Trung Plasencia P.A.-C., M.S. documented in this encounter Plan of Treatment Upcoming Encounters Date Type Specialty Care Team Description 04/24/2022 Appointment Laboratory Medicine Angélica Granger P.A.-C. [address] [place] [phone] 04/25/2022 Office Visit Otorhinolaryngology Dex Matta APRN, C.N.P., M.S.N. [address] [place] [phone] 05/08/2022 Appointment Laboratory Medicine Angélica Granger P.A.-C. [address] [place] [phone] 05/08/2022 Clinical Admitting/Central Communication Scheduling 05/10/2022 Appointment Radiology Jeremie Rose M.D. [address] [place] [phone] 05/10/2022 Comprehensive Visit Orthopedic Surgery Warner Graves M.D. [address] [place] [phone] 05/22/2022 Appointment Laboratory Medicine Angélica Granger P.A.-C. [address] [place] [phone] 06/05/2022 Appointment Laboratory Medicine Angélica Granger P.A.-C. [address] [place] [phone] 06/19/2022 Appointment Laboratory Medicine Angélica Granger P.A.-C. [address] [place] [phone] 07/03/2022 Appointment Laboratory Medicine Angélica Granger P.A.-C. [address] [place] [phone] 07/17/2022 Appointment Laboratory Medicine Angélica Granger P.A.-C. [address] [place] [phone] 07/31/2022 Appointment Laboratory Medicine Angélica Granger P.A.-C. [address] [place] [phone] 08/14/2022 Appointment Laboratory Medicine Angélica Granger P.A.-C. [address] [place] [phone] 08/28/2022 Appointment Laboratory Medicine Angélica Granger P.A.-C. [address] [place] [phone] documented as of this encounter Visit Diagnoses Not on filedocumented in this encounter Additional Health Concerns Assessment Noted Time PHQ-9 Depression Total Score: 4 11/28/2020 10:17 AM CD T documented as of this encounter Care Teams Career Advisor Relationship Specialty Start Date End Date Elsewhere, Pcp PCP - General Family Medicine 07/29/17 [facility] - Laboratory Medicine 04/12/[address] [address] documented as of this encounter
--- OUTSIDE RECORDS SUMMARY | 2022-04-13 11:57 | XMS_ITS | Encounter Summary ---
:1955 Author Organization [facility] Address [address] [place] [id number] Care Team Providers Name Role Phone Elsewhere, Pcp Primary Care Provider Unavailable Reason for Visit Transplant (Routine) - Closed Specialty Diagnoses / Procedures Referred By Contact Refer red To Contact Transplant Surgery / Diagnoses Transplant Liver (HCC) Medication Therapy Shelter Not Anticoagulant Colitis Cytomegalovirus (HCC) [facility]C., M.S. [address] [place] [phone] Referral ID Status Reason Start Date Expiration Date Visits Requ ested Visits Authorized [id number] Closed 08/08/2021 08/08/2022 1 1 Encounter Details Date Type Department Care Team Description 12/10/2021 Office Visit Trung Swenson Infect ion Respiratory Lower (Primary Dx); Center for [facility] PMaryanne., Acute Bronchiol itis Due To Other Specified Organisms; Transplantation and M.S. 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 How often do you attend gnosticism or More than 4 times per year 12/15/2021 mosque services? 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 - 12/10/2021 11:00 AM CDT DEMOGRAPHIC INFORMATION Patient Name: Bruce Singh Clinic Number: [id number] Age: 66 y.o. Birthdate: 1955 Sex: male Service Date/Time: 12/10/21 9:02 AM CDT TRANSPLANT INFECTIOUS DISEASES SERVICE - Progress Note SUBJECTIVE REFERRAL SOURCE Trung Plasencia P.A.-C., M.S. REASON FOR VISIT Post hospital f/u: Hospitalized October 12-2021. Serratia pneumonia. CMV viremia. HISTORY OF PRESENT ILLNESS Mr. Singh is a 66 year old gentleman from [place], [place] whom I know from prior clinic [...] and he was initiated on dialysis on June 01, 2021. He is hoping [...] imaging has been suggestive of aspiration which my occur at night. He is s/p endoscopic sphenoidotomy with tissue [...] tablet daily. Valganciclovir 450 mg every 48 hours. Serial Qn CMV PCR's undetected November 28 & December 03, 2021. He continues to grow Serratia marcescens in respiratory secretions, susceptible to TMP/SMZ suggesting airway colonization as has been previously documented, with periodic exacerbation of respiratory symptoms. He has a chronic cough. Most recent BAL is from December 07, 2021. BAL from that date showed an elevated Aspergillus Antigen >=3.750. Fungal smear negative. Fungal culture in process. CT chest December 05, 2021 showed mild worsening micronodular opacities in the lingula and bilateral lower lobes with similar opacities in the basilar right middle lobe. Similar bronchial wall thickening. He has grownSerratia on respiratory and sinus bacterial cultures dating back to February 01, 2020. He has not required antifungal therapy previously. Mr. Singh complains of chronic cough. He remains on dialysis three times weekly and is hoping to be able to receive a kidney transplant in the near future. His CT chest imaging, while not showing definite signs of an invasive fungal process, does show mild progression of micronodular opacities in the lingula as well as in both lower lobes and the right middle lobe which have been present on prior imaging studies but overall there has been progression. He has calcified granulomata in the right lower lobe. He is on 3 drug immunosuppression. He remains symptomatic with chronic cough. I favor starting treatment with oral posaconazole (insurance preferred) pending final fungal culture result from the BAL given the elevated BAL Aspergillus antigen level. I have ordered a serum Aspergillus antigen for today.I would also favor restarting him on TMP/SMZ SS once daily each evening to cover the Serratia. The dose is a dialysis dosing schedule. He is on atorvastatin and this will need to be stopped while on posaconazole. He could be switched to a different statin that does not have the drug-dug interaction with Posaconazole or remain off a statin while on antifungal therapy. I will defer this decision to Liver Transplant. I have also asked him to stop taking Trazodone which he says he hardly ever takes anyways. It is used to help him sleep. He is scheduled to meet with Liver Transplant later today in clinic. His CMV viremia has been suppressed on valganciclovir and he can stop valganciclovir at this point since he as two consecutive undetected CMV PCR's one week apart. ALLERGIES/CONTRAINDICATIONS Allergies Allergen Reactions ??? Citalopram Other (see comments) [place], Liver transplant ??? Ibuprofen Other (see comments) PT SHOULD NOT HAVE THIS MED R/T LIVER TRANSPLANT ??? Olanzapine Other (see comments) Joint pain ??? Quetiapine Edema and Other (see comments) Muscle pain and swelling ??? Cefixime Diarrhea ??? Ciprofloxacin Other (see comments) Tendon pain, Liver transplant ??? Erythromycin Base Other (see comments) Due to medications, interacts with transplant medications ??? Erythromycin Other (see comments) DIAGNOSTICS LABS: I have reviewed the patient's current pertinent laboratory, imaging, and other diagnostic studies which are available in [facility] and [facility] respectively. Lab Results Component Value Date HGB 9.8 (L) 12/03/2021 WBC 3.9 12/03/2021 LYMPHSABS 0.72 (L) 10/15/2021 NEUTROPHILS See manual differential 12/03/2021 EOSABS 0.03 10/15/2021 PLT 292 12/03/2021 NA 138 12/03/2021 KSERUM 3.8 10/15/2021 CL 99 12/03/2021 BICARB 24 12/03/2021 CREATININE 4.03 (H) 12/03/2021 EGFRNONBLKAA <15 (L) 12/03/2021 ALT 17 12/03/2021 AST 21 12/03/2021 ALKPHOS 107 12/03/2021 BILITOT 0.3 12/03/2021 INR 1.0 12/03/2021 VITALS Temperature: 36.5 C Weight: 73.6 kg Physical Exam General: Awake, alert and oriented. No acute distress. Chronic cough. Comfortable at rest. Eyes: Sclerae non-icteric. Conjunctivae non-injected. Lungs: Scattered wheezes and rhonchi. Skin: No acute rashes or lesions. Extremities: Generalized muscle atrophy. Gait: Normal. Ambulates on his own without assistance. DISCUSSION Mr. Singh has a couple of infection issues. 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 He was restarted onoral valganciclovir in September and his last two Qn CMV PCR's in November are undetected. He can therefore stop valganciclovir therapy at this point in time. A second issue is the long-standing problem of chronic cough in the setting of chronic bronchiolitis and possible aspiration with airway colonization of Serratia Marcescens dating back to January,. He has evidence of progressive micronodularity involving multiple lobes on CT chest imaging. The organism is MDR. He was given a recent course of oral Bactrim and did not any improvement, however, he tells me today that he took the bactrim prior to dial ysis sessions. Thirdly, he had a bronchoscopy done on December 07, 2021 and Serratia marcescens, 2+ has been identifiedon bacterial culture and the BAL Aspergillus antigen is elevated at >3.750 in the setting of chronic immunosuppression and progressive micronodularity. He is s/p endoscopic sinus surgery on 2021. Mr. Singh is trying to get activated for kidney transplant. Therefore, I think we should be as aggressive as we can to try to treat any signs of active infection. I would therefore favor starting himon Posaconazole DL tablets 300 mg once daily until we have the final fungal culture result back fromthe BAL done on December 07, 2021. Will check a serum Aspergillus antigen today although this is a very insensitive test and will only be helpful if it is positive. He can stop the valganciclovir and I have restarted his TMP/SMZ SS tablet once daily in the evening after dialysis on dialysis days for 4 weeks duration. I would recheck a sputum towards the end of therapy. ASSESSMENT / PLAN #1 Reactivation CMV viremia, September, Controlled on valganciclovir with 2 consecutive undetected CMV PCR's. Can stop valganciclovir. #2 Elevated BAL Aspergillus antigen, December 07, [address] chest imaging Will check a serum Aspergillus antigen. I would favor starting antifungal therapy with oral posaconazole DL tablets, 300 mg once daily while we wait for the BAL fungal culture to finalize. #3 Progression of micronodularity on CT chest imaging RML, lingula and both lower lobes Findings are concerning for an infectious/inflammatory process. 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 #5 Recurrent Clostridioides difficile infection, last episode, May 24, 2021 He does not complain of any diarrhea. #6 Chronic kidney disease, stage 5, dialysis dependent Kidney Transplant candidate. #7 S/P Liver transplantation, June 13, 2013 #8 Chronic immunosuppression with CellCept, prednisone and tacrolimus #9 Initial liver transplant, May 25, 1999 - complicated by late onset HAT/ischemic cholangiopathy #10 Chronic rhinosinusitis with chronic cough and post nasal drip with recurrent aspiration S/P endoscopic sinus surgery July 26, 2021 with some improvement in symptoms. SUGGESTIONS/RECOMMENDATIONS 1. Stop valganciclovir. 2. Restart TMP/SMZ SS tablet one daily in the evening (after dialysis). Treat for 30 days. Renal dose adjusted. 3. Start Posaconazole DL tablets, 300 mg once daily. Take with a meal. 4. Check a serum Posaconazole drug level 10 days into therapy. Goal level 1250 or greater. 5. Stop Atorvastatin while on Posaconazole. Can substitute for an alternative statin that does not have the drug-drug interaction with Posaconazole. 6. Stop Trazodone while on Posaconazole. 7. Closely monitor serum tacrolimus levels on Posaconazole and adjust tacrolimus dose accordingly. 8. Liver Transplant Clinic this afternoon. 9. Serum Aspergillus antigen today, ordered. 10. Await final BAL fungal culture result. 11. Total duration of antifungal therapy to be determined. At least [address] chest in 6-8 weeks. 13. Obtain sputum for bacterial and fungal culture in 1 month. 14. If repeat CT chest in one month is stable to improved, can proceed to activate for kidney transplant. Prescriptions for trimethoprim-sulfamethoxazole and posaconazole or electronically generated to the patient's local pharmacy. Posaconazole requires prior authorization and may take a few days to get approved. It is listed as a preferred tier 1 antifungal on the patient's insurance. PATIENT EDUCATION Ready to learn, no apparent learning barriers were identified; learning preferences include listening. Explained diagnosis and treatment plan; patient expressed understanding of the content. Thank you for the opportunity to participate in the care of Mr. Singh. Trung Plasencia P.A.-C., M.S. documented in this encounter Plan of Treatment Upcoming Encounters Date Type Specialty Care Team Description 04/24/2022 Appointment Laboratory Medicine Angélica Granger P.A.-C. [address] [place] [phone] 04/25/2022 Office Visit Otorhinolaryngology Dex Matta APRN, C.N.P., M.S.N. [address] [place] [phone] 05/08/2022 Appointment Laboratory Medicine Angélica Granger P.A.-C. [address] [place] [phone] 05/08/2022 Clinical Admitting/Central Communication Scheduling 05/10/2022 Appointment Radiology Jeremie Rose M.D. [address] [place] [phone] 05/10/2022 Comprehensive Visit Orthopedic Surgery Warnre Graves M.D. [address] [place] [phone] 05/22/2022 Appointment Laboratory Medicine Angélica Granger P.A.-C. [address] [place] [phone] 06/05/2022 Appointment Laboratory Medicine Angélica Granger P.A.-C. [address] [place] [phone] 06/19/2022 Appointment Laboratory Medicine Angélica Granger P.A.-C. [address] [place] [phone] 07/03/2022 Appointment Laboratory Medicine Angélica Granger P.A.-C. [address] [place] [phone] 07/17/2022 Appointment Laboratory Medicine Angélica Granger P.A.-C. [address] [place] [phone] 07/31/2022 Appointment Laboratory Medicine Angélica Granger P.A.-C. [address] [place] [phone] 08/14/2022 Appointment Laboratory Medicine Angélica Granger P.A.-C. [address] [place] [phone] 08/28/2022 Appointment Laboratory Medicine Angélica Granger P.A.-C. [address] [place] [phone] documented as of this encounter Results Aspergillus Ag (12/10/2021 12:57 PM CDT) athologist Signature Aspergillus Ag, <0.500 <0.5 index 12/11/2021 [facility] S 2:19 PM CDT Comment: ----ADDITIONAL INFORMATION---- This is a qualitative test and the resul onel index value is not indicative of disease severity. ??Serial testing is re commended for patients at high risk for invasive aspergillosis. This assay was performed using the FDA-c leared [employer] Plat[place] Aspergillus Galactomannan EIA. Specimen Anatomical Collection Method Collection Time Receive d Time (Source) Location / / Volume Laterality Blood (Blood, 12/10/2021 12:57 12/10/2021 4:57 Venous) PM CDT PM CDT Trung Plasencia P.A.-C. M.S. LAB MICROBIOLOGY - BLOOD O RDERABLES Performing Organization Address City/State/ZIP Code Phon e Number [facility] [address] [place], [place] [address] [place] [address] [place] [address] Laboratory Medicine and Pathology [address] [place] documented in this encounter Visit Diagnoses Diagnosis Infection Respiratory Lower - Primary Acute Bronchiolitis Due To Other Specifi ed Organisms Infection Cytomegalovirus (HCC) Abnormal Computed Tomography Chest Transplant Liver (HCC) Pneumonia Immunodeficiency Due To Drugs (HCC) documented in this encounter Additional Health Concerns Assessment Noted Time PHQ-9 Depression Total Score: 4 11/28/2020 10:17 AM CD T documented as of this encounter Care Teams Vending Machine Collector Relationship Specialty Start Date End Date Elsewhere, Pcp PCP - General Family Medicine 07/29/17 [facility] - Laboratory Medicine 04/12/20 [place] [phone] documented as of this encounter
--- OUTSIDE RECORDS SUMMARY | 2022-04-13 11:57 | XMS_ITS | Encounter Summary ---
:1955 Author Organization [facility] Address [address] [place] [address] Care Team Providers Name Role Phone Elsewhere, Pcp Primary Care Provider Unavailable Reason for Referral Outpatient (Routine) - Closed Specialty Diagnoses / Procedures Referred By Contact Refer red To Contact Diagnoses Encounter For Preprocedural Cardiovascular Examination Chronic Kidney Disease Stage 5 GFR Less Than 15 Dialysis Dependent (HCC) Pretransplant Recipient Evaluation Exam Willis Herrera M.D. [facility] Procedures Echo Stress [address] [place] [address] Referral ID Status Reason Start Date Expiration Date Visits Requ ested Visits Authorized [id number] Closed 09/27/2021 09/27/2022 1 1 Reason for Visit Outpatient (Routine) - Closed Specialty Diagnoses / Procedures Referred By Contact Refer red To Contact Diagnoses Encounter For Preprocedural Cardiovascular Examination Chronic Kidney Disease Stage 5 GFR Less Than 15 Dialysis Dependent (HCC) Pretransplant Recipient Evaluation Exam Willis Herrera M.D. [facility] Procedures Echo Stress [address] [place], [place] [address] Referral ID Status Reason Start Date Expiration Date Visits Requ ested Visits Authorized [id number] Closed 09/27/2021 09/27/2022 1 1 Encounter Details Date Type Department Care Team Description 12/10/2021 Hospital Department of Willis Herrera Encounter For Preprocedural Cardiovascular Examination ; Encounter Cardiovascular G, M.D. 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 coenzyme Q10 (CO [...] 0 mg tablet total) by mouth daily. traZODone (DESYREL) 100 [...] or open Cytomegalovirus (HCC), capsules. 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 sulfamethoxazole-trimeth Take 1 tablet by 30 tablet [...] dialysis Term Not Anticoagulant, Infection Cytomegalovirus (HCC) documented as of this encounter Plan of Treatment Upcoming Encounters Date Type Specialty Care Team Description 04/24/2022 Appointment Laboratory Medicine Angélica Granger P.A.-CDemetrius [address] [place] [phone] 04/25/2022 Office Visit Otorhinolaryngology Dex Matta APRN, C.N.P., M.S.N. [address] [place] [phone] 05/08/2022 Appointment Laboratory Medicine Angélica Granger P.A.-CDemetrius [address] [place] [phone] 05/08/2022 Clinical Admitting/Central Communication Scheduling 05/10/2022 Appointment Radiology Jeremie Rose M.D. [address] [place] [phone] 05/10/2022 Comprehensive Visit Orthopedic Surgery Warner Graves M.D. [address] [place] [phone] 05/22/2022 Appointment Laboratory Medicine Angélica Granger P.A.-CDemetrius [address] [place] [phone] 06/05/2022 Appointment Laboratory Medicine Angélica Granger P.A.-CDemetrius [address] [place] [phone] 06/19/2022 Appointment Laboratory Medicine Angélica Granger P.A.-C. [address] [place] [phone] 07/03/2022 Appointment Laboratory Medicine Angélica Granger P.A.-C. [address] [place] [phone] 07/17/2022 Appointment Laboratory Medicine Angélica Granger P.A.-C. [address] [place] [phone] 07/31/2022 Appointment Laboratory Medicine Angélica Granger P.A.-C. [address] [place] [phone] 08/14/2022 Appointment Laboratory Medicine Angélica Granger P.A.-C. [address] [place] [phone] 08/28/2022 Appointment Laboratory Medicine Angélica Granger P.A.-C. [address] [place] [phone] documented as of this encounter Procedures Procedure Name Priority Date/Time Associated Diagnosis Comme nts ECHO STRESS 2D Routine 12/10/2021 9:38 AM Encounter For Result s for this WITH COLOR, CDT Preprocedural procedure are in LIMITED DOPPLER Cardiovascular the result s AND CONTRAST Examination section. Chronic Kidney Disease Stage 5 GFR Less Than 15 Dialysis Dependent (HCC) Pretransplant Recipient Evaluation Exam documented in this encounter Results ECHO STRESS 2D WITH COLOR, LIMITED DOPPLER AND CONTRAST (12/10/2021 9:38 AM CDT) [facility] Method Time Signature Ejection Fraction 60 MC CV EIMS LV Mass Index 109 MC CV EIMS LV End-Diastolic 48 MC CV EIMS Diameter LV End-Systolic 31 MC CV EIMS Diameter MV E Velocity 0.70 MC CV EIMS MV A Velocity 0.60 MC CV EIMS MV E/A 1.17 MC CV EIMS MV e' Velocity 0.07 MC CV EIMS Medial MV E/e' Medial 10 MC CV EIMS LV Interventricular 12 MC CV EIMS Septal Wall Thickness LV Posterior Wall 11 MC CV EIMS Thickness LV Relative Wall 46 MC CV EIMS Thickness Tricuspid Annular S? 0.14 MC CV EIMS TR Vmax 2.73 MC CV EIMS RA Pressure 5 MC CV EIMS RV Systolic Pressure 35 MC CV EIM S LA Volume Index 30 MC CV EIMS WMSI At Rest 1 MC CV EIMS WMSI At Peak Stress 1 MC CV EIMS Anatomical Region Laterality Modality Echocardiography Specimen (Source) Anatomical Collection Method Collection Time Re ceived Time Location / / Volume Laterality 12/10/2021 8:18 AM CDT Impressions 12/10/2021 10:18 AM CDT consistent with normal left ventricular filling pressure at rest and with exercise. 7. The stress ECG was negative for ische armando. Findings O2 sat at rest 100%, and with exercise 9 8%. O2 uptake data detailed in the Electronic Medical Record (Cardiopulmonary (VO2) Exercise Test). STRESS TEST:The patient exercised for 6: 39 min:sec on the Oxygen protocol. The patient achieved a workload of 6.7 METS and 69% FAC. A peak heart rate of 136 BPM was achieved (89% age-predicted maximal H R). Blood pressure at rest 128 mmHg/52 m mHg. Blood pressure with exercise 158 mmHg/58 mmHg. Normal blood pressure response to exercise. The test was terminated due to fatigue. The baseline ECG demonstrated sinus rhythm. With stress, there were no S-T ch anges. VPC's and APC's present at stress . The stress ECG was negative for ischemia. Please se e Nursing Notes for additional information. REST IMAGES: LEFT VENTRICLE:Normal left ventricular c hamber size. Sigmoid ventricular septum with basal septal prominence: 15 mm Calculated 2-D linear left ventricular ejection fraction 62% (visual estimate LVEF 60% ). No regional wall motion abnormalities . Normal left ventricular filling pressure. RIGHT VENTRICLE:Normal right ventricular chamber size. Normal right ventricular systolic function. Estimated right ventricular systolic pressure 35 mmHg (right atrial pressure of 5 mmHg). ATRIA:Normal left atrial size. Left atri al volume index 30 ml/m2. Strain imaging examination performed to assess left atrial function. Global averaged left atrial longitudinal peak systolic strain is no rmal at 43.5% (normal is greater than 35 %). Normal right atrial size. CARDIAC VALVES:Trileaflet aortic valve. Sclerotic aortic valve. No aortic valve regurgitation. Mildly thickened mitral valve. Mild mitral valve regurgitation. Pulmonary valve not well visualized. Normal pulmonary valve systolic velocities. No pulmonary valve regurgitation. Normal tricuspid va lve. Mild tricuspid valve regurgitation. OTHER ECHO FINDINGS:Normal inferior vena cava size with normal inspiratory collapse (>50%). Ascending aorta not well visualized. No intracardiac mass or thrombus identified. No ??pericardial effusion. LUNG FINDINGS:Lung ultrasound performed. For the complete report, see the Order-L evel Documents. Narrative 12/10/2021 10:18 AM CDT For the complete report, see the Order-Level Documents. Final Impressions 1. Exercise echocardiogram negative for myocardial ischemia. 2. The patient's exercise capacity was l imited; although target heart rate was exceeded at this level of exertion. 3. The patient achieved a workload of 6. 7 METS and 69% FAC. 4. Ejection fraction response from 60% a t rest to 70% at peak stress. 5. Left ventricular end-systolic volume decreased with stress. 6. Procedure Note Jarred Mock M.B., B.Ch. - 2021 For the complete report, see the Order-L evel Documents. Final Impressions 1. Exercise echocardiogram negative for myocardial ischemia. 2. The patient's exercise capacity was l imited; although target heart rate was exceeded at this level of exertion. 3. The patient achieved a workload of 6. 7 METS and 69% FAC. 4. Ejection fraction response from 60% a t rest to 70% at peak stress. 5. Left ventricular end-systolic volume decreased with stress. 6. Findings consistent with normal left ventricular filling pressure at rest and with exercise. 7. The stress ECG was negative for ische armando. Findings O2 sat at rest 100%, and with exercise 9 8%. O2 uptake data detailed in the Electronic Medical Record (Cardiopulmonary (VO2) Exercise Test). STRESS TEST:The patient exercised for 6: 39 min:sec on the Oxygen protocol. The patient achieved a workload of 6.7 METS and 69% FAC. A peak heart rate of 136 BPM was achieved (89% age-predicted maximal HR). Blood pressure at rest 128 mmHg/52 mmHg. Blood pressure wi th exercise 158 mmHg/58 mmHg. Normal blood pressure response to exercise. The test was terminated due to fatigue. The baseline ECG demonstrated sinus rhythm. With stress, there were no S-T changes. VPC's and APC's pre sent at stress. The stress ECG was negative for ischemia. Please see Nursing Notes for additional information. REST IMAGES: LEFT VENTRICLE:Normal left ventricular c hamber size. Sigmoid ventricular septum with basal septal prominence: 15 mm Calculated 2-D linear left ventricular ejection fraction 62% (visual estimate LVEF 60%). No regional wall motion abnormalities. Normal left v entricular filling pressure. RIGHT VENTRICLE:Normal right ventricular chamber size. Normal right ventricular systolic function. Estimated right ventricular systolic pressure 35 mmHg (right atrial pressure of 5 mmHg). ATRIA:Normal left atrial size. Left atri al volume index 30 ml/m2. Strain imaging examination performed to assess left atrial function. Global averaged left atrial longitudinal peak systolic strain is normal at 43.5% (normal is greater than 35%). Normal rig ht atrial size. CARDIAC VALVES:Trileaflet aortic valve. Sclerotic aortic valve. No aortic valve regurgitation. Mildly thickened mitral valve. Mild mitral valve regurgitation. Pulmonary valve not well visualized. Normal pulmonary valve systolic velocities. No pulmonary valve regurgitation. Normal tricuspid valve. Mild tricuspid valve regurgitation. OTHER ECHO FINDINGS:Normal inferior vena cava size with normal inspiratory collapse (>50%). Ascending aorta not well visualized. No intracardiac mass or thrombus identified. No pericardial effusion. LUNG FINDINGS:Lung ultrasound performed. For the complete report, see the Order-L evel Documents. Willis Herrera M.D. CV ECHO PROCEDURES documented in this encounter Visit Diagnoses Diagnosis Encounter For Preprocedural Cardiovascul ar Examination Chronic Kidney Disease Stage 5 GFR Less Than 15 Dialysis Dependent (HCC) Pretransplant Recipient Evaluation Exam documented in this encounter Administered Medications Inactive Administered Medications - up to 3 most recent administrations Medication Order MAR Action Action Date Dose Rate Site sodium chloride 0.9 % injection 10 Given 12/10/2021 9:43 AM CDT 10 mL mL 10 mL, intravenous, Once in imaging, line care, Starting on Fri12/10/21 at 0849, For 1 dose, Prior to and following infusion and between multiple consecutive infusions: sodium chloride 0.9 % injection sulfur hexafluoride microspheres injection Given 12/10/2021 9:44 AM CDT 3 mL (LUMASON) intravenous, Once in imaging, contrast, Starting on Fri12/10/21 at 0850, For 1 dose, Intraprocedure - Diagnostic, See protocol. Reconstitute each 25 mg vial with 5 mL NS. documented in this encounter Additional Health Concerns Assessment Noted Time PHQ-9 Depression Total Score: 4 11/28/2020 10:17 AM CD T documented as of this encounter Care Teams Basket Mender Relationship Specialty Start Date End Date Elsewhere, Pcp PCP - General Family Medicine 07/29/[address] [facility] - Laboratory Medicine 04/12/20 [place] [phone] documented as of this encounter
--- OUTSIDE RECORDS SUMMARY | 2022-04-13 11:57 | XMS_ITS | Encounter Summary ---
:1955 Author Organization [facility] Address [address] [place] [address] Care Team Providers Name Role Phone Elsewhere, Pcp Primary Care Provider Unavailable Encounter Details Date Type Department Care Team Description 12/11/2021 Orders Only Curt aguirre [facility] Plasencia for Transplantation and Mayuri Wyatt. Clinical Regeneration in [address] [place] [address] [place] [phone] [place] [phone] Social History Tobacco Use Types Packs/Day Years [...] or relatives? How often do you attend religion or More than 4 times per year 12/15/2021 scientology services? 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 [address] [place] [phone] 04/25/2022 Office Visit Otorhinolaryngology Dex Matta, RAMONA, C.N.P., M.S.N. [address] [place] [phone] 05/08/2022 Appointment Laboratory Medicine Angélica Granger P.A.-C. [address] [place] [phone] 05/08/2022 Clinical Admitting/Central Communication Scheduling 05/10/2022 Appointment Radiology Jeremie Rose M.D. [address] [place] [phone] 05/10/2022 Comprehensive Visit Orthopedic Surgery Warner Graves M.D. [address] [place] [phone] 05/22/2022 Appointment Laboratory Medicine Angélica Granger P.A.-C. [address] [place] [phone] 06/05/2022 Appointment Laboratory Medicine Angélica Granger P.A.-C. [address] [place] [phone] 06/19/2022 Appointment Laboratory Medicine Angélica Granger P.A.-C. [address] [place] [phone] 07/03/2022 Appointment Laboratory Medicine Angélica Granger P.A.-C. [address] [place] [phone] 07/17/2022 Appointment Laboratory Medicine Angélica Granger P.A.-C. [address] [place] [phone] 07/31/2022 Appointment Laboratory Medicine Angélica Granger P.A.-C. [address] [place] [phone] 08/14/2022 Appointment Laboratory Angélica Royal P.A.-C. [address] [place] [address] [phone] 08/28/2022 Appointment Laboratory Medicine Angélica Granger P.A.-C. [address] [place] [address] [phone] documented as of this encounter Visit Diagnoses Not on filedocumented in this encounter Additional Health Concerns Assessment Noted Time PHQ-9 Depression Total Score: 4 11/28/2020 10:17 AM CD T documented as of this encounter Care Teams Data Coder Operator Relationship Specialty Start Date End Date Elsewhere, Pcp PCP - General Family Medicine 07/29/17 [facility] - Laboratory Medicine 04/12/20 [place] [phone] documented as of this encounter
--- OUTSIDE RECORDS SUMMARY | 2022-04-13 11:57 | XMS_ITS | Encounter Summary ---
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 [facility] 200 [place] [address] Referral ID Status Reason Start Date Expiration Date Visits V isits Requested Authorized [id number] Closed Specialty 12/17/2021 12/17/2022 1 1 Services Required Encounter Details Date Type Department Care Team Description 12/19/2021 Virtual Visit Curt Diaz, Trans plant Liver (HCC); Center for Leonid Stern Medication Ther apy Nursing Home Not Anticoagulant; Transplantation and M.DDemetrius Immunodeficiency (HCC) Clinical Regeneration 200 [facility] in [place], [place] [address] [place] [phone] [place], [place] [phone] (Work) [phone] Social History Tobacco Use Types Packs/Day Years [...] organizations such as roman catholic groups, unions, fraClicks for a Cause or athletic groups, or school groups? 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 - 12/19/2021 11:00 AM CDT Phone call follow-up. I apologized to Mr. Singh for cancelling our [id number] visit but I had a COVID positive test last night. He appears to be doing well without further worsening. 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 That is being handled by Infectious Disease. I suggested a repeat CT scan in approximately 2 months. He should continue with his inhaled medications. There may be some aspects of gastroesophageal reflux causing some esophageal spasm and if egvq-nkh-fkysidd anti acid medications are not helpful then consultation with Gastroenterology would be appropriate. All questions were answered. documented in this encounter Plan of Treatment Upcoming Encounters Date Type Specialty Care Team Description 04/24/2022 Appointment Laboratory Medicine Angélica Granger P.A.-C. [address] [place] [phone] 04/25/2022 Office Visit Otorhinolaryngology Dex Matta APRN, C.N.P., M.S.N. [address] [place] [phone] 05/08/2022 Appointment Laboratory Medicine Angélica Granger P.A.-C. [address] [place] [phone] 05/08/2022 Clinical Admitting/Central Communication Scheduling 05/10/2022 Appointment Radiology Jeremie Rose M.D. [address] [place] [phone] 05/10/2022 Comprehensive Visit Orthopedic Surgery Warner Graves M.D. [address] [place] [phone] 05/22/2022 Appointment Laboratory Medicine Angélica Granger P.A.-C. [address] [place] [phone] 06/05/2022 Appointment Laboratory Medicine Angélica Granger P.A.-C. [address] [place] [phone] 06/19/2022 Appointment Laboratory Medicine Angélica Granger P.A.-C. [address] [place] [address] [phone] 07/03/2022 Appointment Laboratory Medicine Angélica Granger P.A.-C. [address] [place] [phone] 07/17/2022 Appointment Laboratory Medicine Angélica Granger P.A.-C. [address] [place] [phone] 07/31/2022 Appointment Laboratory Medicine Angélica Granger P.A.-C. [address] [place] [phone] 08/14/2022 Appointment Laboratory Medicine Angélica Granger P.A.-C. [address] [place] [phone] 08/28/2022 Appointment Laboratory Medicine Angélica Granger P.A.-C. [address] [place] [phone] documented as of this encounter Visit Diagnoses Diagnosis Transplant Liver (HCC) Medication Therapy Customer Service Associate Not Anticoa gulant Immunodeficiency (HCC) documented in this encounter Additional Health Concerns Assessment Noted Time PHQ-9 Depression Total Score: 4 11/28/2020 10:17 AM CD T documented as of this encounter Care Teams Portfolio Manager Relationship Specialty Start Date End Date Elsewhere, Pcp PCP - General Family Medicine 07/29/17 [facility] - Laboratory Medicine 04/12/[address] [phone] documented as of this encounter
[2022-04-13 11:58] LABS: Troponin, Point-of-Care* 0.02 ng/ml (0.01-0.04)
--- OUTSIDE RECORDS SUMMARY | 2022-04-13 11:58 | XMS_ITS | Encounter Summary ---
:1955 Author Organization [facility] Address [address] [place] [address] Care Team Providers Name Role Phone Elsewhere, Pcp Primary Care Provider Unavailable Reason for Visit Reason Comments Kidney Transplant Transplant (Routine) - Closed Specialty Diagnoses / Procedures Referred By Contact Refer red To Contact Transplant Surgery / Diagnoses Chronic Kidney Disease Stage 5 GFR Less Than 15 Dialysis Dependent (HCC) Pretransplant Recipient Evaluation Exam Willis Herrera [place] [facility] Transplant Sada [address] [place] [phone] Referral ID Status Reason Start Date Expiration Date Visits Requ ested Visits Authorized [id number] Closed 09/27/2021 09/27/2022 1 1 Encounter Details Date Type Department Care Team Description 12/05/2021 Office Visit Curt Nash, Pret[place] nsplant Recipient Evaluation Exam (Primary Dx); Milka Hauser M.D. 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 - 12/05/2021 10:30 AM CDT I have seen and examined the patient. I discussed the case with Dr. Johnson and agree with history, physical, assessment and plan as discussed. Mr. Singh is a 66-year-old male with a history of liver transplant in 1998 in 2012. He has been onthe kidney transplant waiting list since 04/07/2018. He is currently on hemodialysis. He is here forwait list re-evaluation. 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 Since he was last seen, he had a pneumonia with Serratia. He improved but over the last couple weeks he has had an increase in cough. On examination his lung examination is abnormal with several crackles. The patient is also had issues with CMV viremia and is currently on Valcyte prophylaxis. The patient was concerned that he might be volume overloaded, but his blood pressure has been low and blood pressure medications have been recently reduced. He does not have any lower extremity edema, and he continues to make some urine. He is only getting 2-3 L removed at dialysis. I believe the patient should be made temporarily inactive while we await workup of his pulmonary symptoms. He is immunosuppressed and could have an opportunistic infection. He will be seeing InfectiousDisease and Pulmonary. He has follow-up with Dr. Martinez next week. documented in this encounter H&P Notes Arron Johnson M.B., B.Ch. - 12/05/2021 10:30 AM CDT KIDNEY TRANSPLANT WAITLIST RE-EVALUATION VISIT REASON FOR VISIT: Bruce Singh is a [...] of renal artery stenosis status post stenting. He started hemodialysis in May of 2021. He currently dialyzes through an AV fistula. 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 He was admitted in September 2021 with worsening shortness of breath and was diagnosed with pneumonia with Serratia isolated in the sputum which was treated with Bactrim. Fungal serologies were negative. The patient was discharged on 10/16/2021 and reports marked improvement in his respiratory symptoms atthe time of discharge. The patient reports recurrence of a dry cough for the past few weeks. His dialysis doctor does not think this is fluid in his lungs. He has no fevers. He was recently restarted on Bactrim a few days ago but reports no improvement. His last to CMV DNA were undetected. He continues to be on Valcyte. He has a visit with Infectious Disease on Friday. Potential living kidney donor(s): no Exam: No acute distress. No scleral icterus. Regular heartbeat. No murmurs appreciated. Loud bilateral inspiratory crackles both posterior lung licea. Kristyn incision from liver transplant. No organomegaly appreciated. No lower extremity edema. ASSESSMENT, REPORT & PLAN: #1 Chronic Kidney Disease Stage 5 GFR Less Than 15 Dialysis Dependent (HCC) #2 Pretransplant Recipient Evaluation Exam # Pretransplant Recipient Evaluation Exam Temporarily inactivate on the waiting list given potential pneumonia. He met with pulmonology today after CT chest which was suggestive of an infectious/inflammatory process. He is planned for a bronchoscopy tomorrow. He has a visit pending with Transplant Infectious Disease is on Friday. Transplant Evaluation Summary: 1. Cause of Renal [...] EPTS: 66%% 13. Cardiopulmonary evaluation: Stress echo Friday, CT chest suggestive of PNA, Bronch scheduled tomorrow. 14. 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 Follow-up by Dermatology. Last seen Dermatology on 11/05/2020. In situ Squamous cell lesion removed. 15. [place] renal imaging if on dialysis >3 years: [...] Peripheral Vascular Disease?: No 23. Pending issues: Bronch tomorrow and visit with ID next week. Arron Johnson Renal transplant fellow Pager [phone] cell [phone] Kidney and Pancreas transplant service pager [phone] documented in this encounter Plan of Treatment Upcoming Encounters Date Type Specialty Care Team Description 04/24/2022 Appointment Laboratory Medicine Angélica Granger P.A.-C. [address] [place] [phone] 04/25/2022 Office Visit Otorhinolaryngology Dex Matta APRN, C.N.P., M.S.N. [address] [place] [phone] 05/08/2022 Appointment Laboratory Medicine Angélica Granger P.A.-C. [address] [place] [phone] 05/08/2022 Clinical Admitting/Central Communication Scheduling 05/10/2022 Appointment Radiology Jeremie Rose M.D. [address] [place] [phone] 05/10/2022 Comprehensive Visit Orthopedic Surgery Warner Graves M.D. [address] [place] [phone] 05/22/2022 Appointment Laboratory Medicine Angélica rGanger P.A.-C. [address] [place] [phone] 06/05/2022 Appointment Laboratory Medicine Angélica Granger P.A.-C. [address] [place] [phone] 06/19/2022 Appointment Laboratory Medicine Angélica Granger P.A.-C. [address] [place] [phone] 07/03/2022 Appointment Laboratory Medicine Angélica Granger P.A.-C. [address] [place] [phone] 07/17/2022 Appointment Laboratory Medicine Angélica Granger P.A.-C. [address] [place] [phone] 07/31/2022 Appointment Laboratory Medicine Angélica Granger P.A.-C. [address] [place] [phone] 08/14/2022 Appointment Laboratory Medicine Angélica Granger P.A.-C. [address] [place] [phone] 08/28/2022 Appointment Laboratory Medicine Angélica Granger P.A.-C. [address] [place] [address] documented as of this encounter Visit Diagnoses Diagnosis Pretransplant Recipient Evaluation Exam - Primary Chronic Kidney Disease Stage 5 GFR Less Than 15 Dialysis Dependent (HCC) documented in this encounter Additional Health Concerns Assessment Noted Time PHQ-9 Depression Total Score: 4 11/28/2020 10:17 AM CD T documented as of this encounter Care Teams Computer Applications Instructor Relationship Specialty Start Date End Date Elsewhere, Pcp PCP - General Family Medicine 07/29/17 [facility] - Laboratory Medicine 04/12/[address] [address] documented as of this encounter
--- OUTSIDE RECORDS SUMMARY | 2022-04-13 11:58 | XMS_ITS | Encounter Summary ---
:1955 Author Organization [facility] Address [address] [place] [address] Care Team Providers Name Role Phone Elsewhere, Pcp Primary Care Provider Unavailable Reason for Referral Outpatient (Routine) - Closed Specialty Diagnoses / Procedures Referred By Contact Refer red To Contact Diagnoses Nodules Pulmonary Multiple Leonid Simon M.D. 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 How [...] place to sleep or slept in a correction (including now)? Education Answer Date Recorded What is the highest level of school you have Some college, n o degree 02/25/2019 completed or the highest degree you have received? 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 [address] [place] [phone] 04/25/2022 Office Visit Otorhinolaryngology Dex Matta APRN, C.N.P., M.S.N. [address] [place] [phone] 05/08/2022 Appointment Laboratory Medicine Angélica Granger P.A.-CDemetrius [address] [place] [phone] 05/08/2022 Clinical Admitting/Central Communication Scheduling 05/10/2022 Appointment Radiology Jeremie Rose M.D. [address] [place] [phone] 05/10/2022 Comprehensive Visit Orthopedic Surgery Warner Graves M.D. [address] [place] [phone] 05/22/2022 Appointment Laboratory Medicine Angélica Granger P.A.-C. [address] [place] [phone] 06/05/2022 Appointment Laboratory Medicine Angélica Granger P.A.-C. [address] [place] [phone] 06/19/2022 Appointment Laboratory Medicine Angélica Granger P.A.-C. [address] [place] [phone] 07/03/2022 Appointment Laboratory Medicine Angélica Granger P.A.-C. [address] [place] [phone] 07/17/2022 Appointment Laboratory Medicine Angélica Granger P.A.-C. [address] [place] [phone] 07/31/2022 Appointment Laboratory Medicine Angélica Granger P.A.-C. [address] [place] [phone] 08/14/2022 Appointment Laboratory Medicine Angélica Granger P.A.-C. [address] [place] [phone] 08/28/2022 Appointment Laboratory Medicine Angélica Granger P.A.-C. [address] [place] [phone] Scheduled Orders Name Type Priority Associated Diagnoses Order S chedule Bronchoscopy (Adult): Procedures Routine Nodules Pulmonary E xpected: Multiple 12/07/2021, Exp ires: 03/07/2023 documented as of this encounter Visit Diagnoses Diagnosis Nodules Pulmonary Multiple - Primary documented in this encounter Additional Health Concerns Assessment Noted Time PHQ-9 Depression Total Score: 4 11/28/2020 10:17 AM CD T documented as of this encounter Care Teams Head Rose Grower Relationship Specialty Start Date End Date Elsewhere, Pcp PCP - General Family Medicine 07/29/17 [facility] - Laboratory Medicine 04/12/20 [place] [phone] documented as of this encounter
--- OUTSIDE RECORDS SUMMARY | 2022-04-13 11:58 | XMS_ITS | Encounter Summary ---
:1955 Author Organization [facility] Address [address] [place] [address] Care Team Providers Name Role Phone Elsewhere, Pcp Primary Care Provider Unavailable Reason for Referral Outpatient (Routine) - Closed Specialty Diagnoses / Procedures Referred By Contact Refer red To Contact Diagnoses Transplant Liver (HCC) Medication Therapy Snf Not 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 [facility] Hyperlipidemia Chronic Obstructive Pulmonary Disease Without Exacerbation (HCC) Anemia Screening Examination Prostate Cancer [address] Procedures DX Chest AP or PA and Lateral 2 [place] [address] Referral ID Status Reason Start Date Expiration Date Visits Requ ested Visits Authorized [id number] Closed 07/23/2021 07/23/2022 1 1 Reason for Visit Outpatient (Routine) - Closed Specialty Diagnoses / Procedures Referred By Contact Refer red To Contact Diagnoses Transplant Liver (HCC) Medication Therapy Snf Not 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 [facility] Hyperlipidemia Chronic Obstructive Pulmonary Disease Without Exacerbation (HCC) Anemia Screening Examination Prostate Cancer [address] Procedures DX Chest AP or PA and Lateral 2 [place] [address] Referral ID Status Reason Start Date Expiration Date Visits Requ ested Visits Authorized [id number] Closed 07/23/2021 07/23/2022 1 1 Encounter Details Date Type Department Care Team Description 12/05/2021 Hospital Encounter Department of Otoniel Linares Liver (HCC); Radiology, Chance Tubbs M.D. Medication Therapy Snf Not Anticoa gulant; Building, in 200 [facility] Screening Examination Skin Cancer; [place], [place] Chronic Failur e 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); [place] [phone] Other Secondary Hypertension; [address] [phone] Other Bipolar Disorder (HCC) ; [place], [place] (Work) Hyperlipidemia; [id number] Chronic Obstructive Pulmonar y Disease Without Exacerbation (HCC); Anemia; Screening [place] Prostate Cancer Social History Tobacco Use Types Packs/Day Years [...] or relatives? How often do you attend buddhism or More than 4 times per year 12/15/2021 yarsanism services? 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 darbepoetin Inject 0.3 mL (60 1 Syringe 6 01/09/2021 michelle-polysorbate mcg total) under (Aranesp, in the skin once for 1 polysorbate,) 60 mcg/0.3 dose. Hold if Hgb mL injection greater than 11 g/dL. Give once every 28 days. fluticasone propionate Administer 2 sprays 16 g [...] mouth at bedtime as needed for sleep. alcohol swabs pads, Use as needed for 1500 each 3 2 12/10/2021 medicated diabetes control blood glucose ctl Glucose control 1 each 0 10/16/2021 high,nml,low solution solution provides an easy way to ensure accurate blood glucose testing. blood sugar diagnostic 2 test daily. 180 test 3 10/16/2021 12/10/2021 strips blood-glucose meter misc Test as directed 1 each 0 10/1612/10/2021 for steroid-induced hyperglycemia. budesonide (PULMICORT) ADD 1 RESPULE TO 8 360 mL 07/3002/07/2022 0.5 mg/2 mL nebulizer OZ SALINE AND solution IRRIGATE EACH SIDE OF NOSE TWICE DAILY DIRECTED ipratropium (ATROVENT) Administer 2 sprays 30 mL 01/2102/05/2022 21 mcg (0.03 %) nasal into each nostril 2 spray (two) times a day. upto 5 times daily as needed. lancets 2 each daily. 180 each 3 10/16/2021 12/10/2021 lidocaine-prilocaine Apply 1 application 30 g 11 202102/07/2022 (EMLA) 2.5-2.5 % cream topically See Admin Instructions. 2 hours prior to dialysis. mycophenolate (CELLCEPT) Take 2 capsules 360 capsule 3 10/1902/15/2022 250 mg (500 mg total) by capsuleIndications: mouth 2 (two) times Transplant Liver (HCC), a day. Do not Infection break, cut, or open Cytomegalovirus (HCC), capsules. Medication Therapy Snf Not Anticoagulant pen needle, diabetic 1 Injection daily. 90 each 0 022 12/10/2021 (Novofine 32) 32 gauge x 1/4 needle sulfamethoxazole-trimeth Take 1 tablet by 60 tablet 1 11/1212/10/2021 oprim (BACTRIM,SEPTRA) mouth daily 400-80 mg per Indications: tabletIndications: Prophylaxis, Prophylaxis, medical medical. tacrolimus (PROGRAF) 0.5 Take 2 capsules (1 [...] Medicine Angélica Granger P.A.-C. [address] [place] [address] 04/25/2022 Office Visit Otorhinolaryngology Dex Matta APRN CDemetriusNJuan Miguel, M.S.N. [address] [place] [phone] 05/08/2022 Appointment Laboratory Medicine Angélica Granger P.A.-C. [address] [place] [phone] 05/08/2022 Clinical Admitting/Central Communication Scheduling 05/10/2022 Appointment Radiology Jeremie Rose M.D. [address] [place] [address] [phone] 05/10/2022 Comprehensive Visit Orthopedic Surgery Warner Graves M.D. [address] [place] [phone] 05/22/2022 Appointment Laboratory Medicine Angélica Granger P.A.-C. [address] [place] [phone] 06/05/2022 Appointment Laboratory Medicine Angélica Granger P.A.-C. [address] [place] [phone] 06/19/2022 Appointment Laboratory Medicine Angélica Granger P.A.-C. [address] [place] [phone] 07/03/2022 Appointment Laboratory Medicine Angélica Granger P.A.-C. [address] [place] [phone] 07/17/2022 Appointment Laboratory Medicine Angélica Granger P.A.-C. [address] [place] [phone] 07/31/2022 Appointment Laboratory Medicine Angélica Granger P.A.-C. [address] [place] [phone] 08/14/2022 Appointment Laboratory Medicine Angélica Granger P.A.-C. [address] [place] [phone] 08/28/2022 Appointment Laboratory Medicine Angélica Granger P.A.-C. [address] [place] [phone] documented as of this encounter Procedures Procedure Name Priority Date/Time Associated Comments Diagnosis DX CHEST AP OR PA RAD - Routine 12/05/2021 11:56 Transplant Liver R esults for this AND LATERAL 2 (most inpatients AM CDT (HCC) procedure are in VIEWS and all Medication Therapy the resul ts outpatients) Snf Not section. 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) Other Secondary Hypertension Other Bipolar Disorder (HCC) Hyperlipidemia Chronic Obstructive Pulmonary Disease Without Exacerbation (HC C) Anemia Screening Examination Prostate Cancer documented in this encounter Results DX Chest AP or PA and Lateral 2 Views (12/05/2021 11:56 AM CDT) Anatomical Region Laterality Modality Chest, Thoracic RST LOS, Thoracic ARZ LOS, Thoracic N/A Digital Radiography FLA LOS Specimen (Source) Anatomical Collection Method Collection Time Re ceived Time Location / / Volume Laterality 12/05/2021 12:11 PM CDT Impressions 12/05/2021 12:14 PM CDT Comparison made with radiograph dated 10/12/2021. Interval removal of right sided dialysis catheter. Reticulonodular opaci ties in the lung bases, worsened on the left the which may relate to an infectious/inflammatory pro cess (possibly aspiration induced) and/or pulmonary edema. Aortic calcifications. Narrative 12/05/2021 12:14 PM CDT EXAM: ??DX CHEST AP OR PA AND LATERAL 2 VIEWS Procedure Note Angi Duncan M.D. - 12/05/2021Form atting of this note might be different from the original. EXAM: DX CHEST AP OR PA AND LATERAL 2 EWS IMPRESSION: Comparison made with radiograph dated . Interval removal of right sided dialysis catheter. Reticulonodular opaci ties in the lung bases, worsened on the left the which may relate to an infectious/inflammatory pro cess (possibly aspiration induced) and/or pulmonary edema. Aortic calcifications. Otoniel [facility]ED[facility] PROCE IKE documented in this encounter Visit Diagnoses Diagnosis Transplant Liver (HCC) Medication Therapy Snf Not Anticoa gulant Screening Examination Skin Cancer Chronic Failure Renal End Stage Renal Di sease Dialysis Dependent (HCC) Other Secondary Hypertension Other Bipolar Disorder (HCC) Hyperlipidemia Chronic Obstructive Pulmonary Disease Wi thout Exacerbation (HCC) Anemia Screening Examination Prostate Cancer documented in this encounter Additional Health Concerns Assessment Noted Time PHQ-9 Depression Total Score: 4 11/28/2020 10:17 AM CD T documented as of this encounter Care Teams Development Chemist Relationship Specialty Start Date End Date Elsewhere, Pcp PCP - General Family Medicine 07/29/17 [facility] - Laboratory Medicine 04/12/20 [place] [phone] documented as of this encounter
--- OUTSIDE RECORDS SUMMARY | 2022-04-13 11:58 | XMS_ITS | Encounter Summary ---
:1955 Author Organization [facility] Address [address] [place] [address] Care Team Providers Name Role Phone Elsewhere, Pcp Primary Care Provider Unavailable Reason for Visit Transplant (Routine) - Closed Specialty Diagnoses / Procedures Referred By Contact Refer red To Contact Transplant Surgery / Diagnoses Transplant Liver (HCC) Medication Therapy Detention Not 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) Other Secondary Hypertension Other Bipolar Disorder (HCC) Otoniel Linares [facility] Transplant Hyperlipidemia Chronic Obstructive Pulmonary Disease Without Exacerbation (HCC) Anemia Screening Examination Prostate Cancer M.D. [address] [place] [phone] Referral ID Status Reason Start Date Expiration Date Visits Requ ested Visits Authorized [id number] Closed 07/23/2021 07/23/2022 1 1 Encounter Details Date Type Department Care Team Description 12/10/2021 Nurse Only Curt Rene [facility] Otoniel Irby M.D. [address] [place] [phone] for Transplantation and Yolie Dubois R.N. [address] [place] [phone] Clinical Regeneration in [place], [place] [address] [place] [phone] Social History Tobacco Use Types Packs/Day [...] or relatives? How often do you attend jewish or More than 4 times per year 12/15/2021 mormon services? 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 Bruce is seen in the transplant center for his annual evaluation. He reports that he is doing well. He saw Dr Simon and Trung Plasencia. Trung recommends adding posaconazole and bactrim for 30 days due to recent preliminary lung infectious study results. Similarly, he will hold Lipitor while he is on the posaconazole. 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 We will closely monitor his tacrolimus levels during this time. We discussed the recommendation of 5 covid vaccines and evusheld. We will clear evusheld with Trung Plasencia and administer if he approves. Bruce consents to receiving Evusheld. ----- Has the patient been hospitalized since last patient status date? 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 No. Recipient diagnosed with any malignant cancer since last follow-up? No ---- Currently having labs done every week. Will keep current schedule unless otherwise dictated by provider. Bruce has labs drawn at [facility]. ---- Bruce's local provider is Ryan Cole at [facility]. ---- Reviewed current test results, vital signs, and follow up plans with patient. Medications reconciled. Reviewed with patient general post transplant care. Patient verbalized understanding of all information. Patient to be seen by Transplant Center Staff for further assessment and management. Yolie Dubois R.N. - 12/10/2021 1:30 PM CDT Hi, my name is Yolie Dubois R.N. calling on behalf of your [facility] team. Due to your medical history, you may be eligible for an outpatient treatment for prevention of COVID-19, called Evusheld. This medication has been recommended for you after review of your medical records by a multidisciplinary physician team. It is your choice whether you would like to receive this treatment or stop at any time. In the next few minutes, I am going to give you more information about this medication to help you understand the possible risks and benefits of taking this medication. To start, I need to ask you a few questions to ensure you are eligible for this treatment. ??? Have you received the full dose of Evusheld already (full dose is either: a single dose of 300mgTixagevimab/300mg Cilgavimab -or- two separate doses of 150mg Tixagevimab/150mg Cilgavimab)? Yes; currently there is no recommendation on timing of repeat Evusheld doses after completion of a full dose(300mg Tixagevimab/300mg Cilgavimab); dose not currently indicated, thank you for your time. ??? Have you had a positive COVID-19 test within the last 20 days? No ??? Have you had a recent exposure to someone with a confirmed case of COVID-19 within the last 14 days? No ??? Do you currently have any COVID-19 symptoms? No ??? Have you received a COVID-19 vaccination or booster shot in the last 14 days? No ??? Was your most recent platelet count (within the last 3 months) 20,000 or higher? Yes ??? Are you or could you be ? Not applicable. What is Evusheld? This is an injectable monoclonal antibody used for prevention of COVID-19 in immune compromised people. ??? You must be over the age of 12 and at least 40 kg or greater to qualify for this treatment. ??? Monoclonal antibodies are laboratory-made proteins that mimic the immune system???s ability to fight off harmful pathogens such as viruses. Evusheld is made up of long-acting monoclonal antibodies that specifically target the spike protein of the coronavirus, designed to block the virus??? attachment and entry into human cells. ??? This medication is considered investigational because it is still being studied. The FDA has approved the use of this medication under an Emergency Use Authorization (EUA) while data is still beingcollected; but early studies show benefits to the treatment. The FDA's EUA has authorized certain imm unocompromised patients to receive this treatment for prevention of COVID-19. Your [facility] care team is supporting this treatment for you, due to your medical history. What are benefits of Evusheld? Studies of this medication showed that it decreased the number of COVID-19 infections in immunosuppressed patients. How will I receive Evusheld? Evusheld is a one time treatment, administered via 2 injections. Typically each injection is given into the muscle in each buttock. Following the injections, you will be monitored 1 hour to watch for any side effects of the treatment. What are the important possible side effects of Evusheld? Most commonly reported side effects included headache, fatigue, and cough following the treatment. ??? In one of the two major studies completed, there were more reported cases of heart failure and heart attacks in patients who received Evusheld, as compared to those who did not receive Evusheld. There is no clear explanation for why this happened, and it did not occur in a specific time. These cases occurred in those with a past history of heart related illness or known risk factors. If you have any concern related to your heart (shortness of breath, chest pain etc), please ensure to have evaluation promptly. What is the cost for this medication? The medication is provided to [facility] at no charge and there is no cost of the medication to youthe patient. Any associated costs with the process of getting the injection will be billed to the your insurance company. COVID-19 Vaccine or Booster Patients who receive Evusheld are still eligible for COVID-19 vaccine or booster. You do not need todelay your scheduled COVID-19 vaccine or booster after receiving Evusheld. What other treatment choices are there? Like Evusheld, the FDA may allow for the emergency use of other medicines for prevention of COVID-19. Go to https://www.fda.gov/aoftqpeuf-ttqvzlrehrpw-fio-response/zku-uupoh-ikjkjmvjcm-and -policy-framework/kxhbqdofp-nlu-krnvtymzbiedc for information on the emergency use of other medicines for COVID-19prevention and treatment for people. Do you agree/consent to receive this treatment? Yes; The following education has been completed in accordance with the FDA Emergency Use Authorization (EUA) requirements: Informed patient/caregiver that Evusheld is an unapproved drug that is authorized for use under this EUA. The Fact Sheet for Patients, Parents and Caregivers will be provided to patient/caregiver at the [facility]. Please cancel your appointment if you develop COVID-19 or COVID-19 symptoms prior to receiving the treatment. Thank you for your time, I will connect with the rest of the team to let them know the results of this phone call. documented in this encounter Plan of Treatment Upcoming Encounters Date Type Specialty Care Team Description 04/24/2022 Appointment Laboratory Medicine Angélica Granger P.A.-C. [address] [place] [phone] 04/25/2022 Office Visit Otorhinolaryngology Dex Matta APRN, C.N.P., M.S.N. [address] [place] [phone] 05/08/2022 Appointment Laboratory Medicine Angélica Granger P.A.-C. [address] [place] [phone] 05/08/2022 Clinical Admitting/Central Communication Scheduling 05/10/2022 Appointment Radiology Jeremie Rose M.D. [address] [place] [phone] 05/10/2022 Comprehensive Visit Orthopedic Surgery Warner Graves M.D. [address] [place] [phone] 05/22/2022 Appointment Laboratory Medicine Angélica Granger P.A.-C. [address] [place] [phone] 06/05/2022 Appointment Laboratory Medicine Angélica Granger P.A.-C. [address] [place] [phone] 06/19/2022 Appointment Laboratory Medicine Angélica Granger P.A.-C. [address] [place] [phone] 07/03/2022 Appointment Laboratory Medicine Angélica Granger P.A.-C. [address] [place] [phone] 07/17/2022 Appointment Laboratory Medicine Angélica Granger P.A.-C. [address] [place] [address] [phone] 07/31/2022 Appointment Laboratory Medicine Angélica Granger P.A.-C. [address] [place] [address] [phone] 08/14/2022 Appointment Laboratory Medicine Angélica Granger P.A.-C. [address] [place] [address] [phone] 08/28/2022 Appointment Laboratory Medicine Angélica Granger P.A.-C. [address] [place] [address] [phone] Scheduled Orders Name Type Priority Associated Diagnoses Order S chedule CBC without Lab Routine Transplant Liver (HCC) weekly for 30 Differential Medication Therapy Occurrenc es Taxonomist Not starting 12/10 Anticoagulant until 03/12/20 23, 15 completed Comprehensive Lab Routine Transplant Liver (HCC) weekly for 30 Metabolic Panel Medication Therapy Occurr ences Taxonomist Not starting 12/10 Anticoagulant until 03/12/20 23, 15 completed Glucose, Fasting Lab Routine Transplant Live r (HCC) weekly for 30 Medication Therapy Occurrenc es Detention Not starting 12/10 Anticoagulant until 03/12/20 23, 15 completed CMV DNA Detect / Microbiology Routine Transplant Live r (HCC) weekly for 30 Quant, Plasma Medication Therapy Occurren kristian Detention Not starting 12/10 Anticoagulant until 03/12/20 23, 15 completed Tacrolimus, B Lab Routine Transplant Liver (HCC) weekly for 30 Medication Therapy Occurrenc es Taxonomist Not starting 12/10 Anticoagulant until 03/12/20 23, 15 completed documented as of this encounter Results (ABNORMAL) CMV DNA Detect / Quant, Plasma (04/10/2022 8:21 AM CDT) [facility] Method Time Signature CMV DNA <35 (A) Undetected 04/11/2022 [facility] Detect/Quant, IU/mL 1:09 PM CDT P Comment: [...] performed u sing the tika CMV test ([employer] with the tika Kinnek0 System. Specimen Anatomical Collection Method Collection Time Receive d Time (Source) Location / / Volume Laterality Blood (Blood, 04/10/2022 8:21 AM 04/11/20 7:06 Venous) CDT AM CDT Angélica Granger P.A.-C. LAB MICROBIOLOGY - BLOOD ORD ERABLES Performing Organization Address City/State/[facility] Code Phon e Number [facility] [address] [place], [place] [address] SUPPORT CENTER [place], [place] [id number] [place] [address] Dr. [place] (ABNORMAL) Tacrolimus, B (04/10/2022 8:20 AM CDT) athologist Signature Tacrolimus, B 1.2 (L) 5.0-15.0 04/11/2022 [facility] (Trough) 11:25 AM CDT ng/mL Comment: ----ADDITIONAL [...] and its performa nce characteristics determined by [facility] in a manner consistent with CLIA requirements. [...] Organization Address City/State/ZIP Code Phon e Number [facility] [address] [place], [place] [address] [place] [id number] [facility] [address] [place] (ABNORMAL) Glucose, Fasting (04/10/2022 8:20 [...] LAB BLOOD NON ADD-ON Performing Organization Address City/State/[facility] Code Phon e Number [phone] [place] [address] [place] [address] System [address] (ABNORMAL) Comprehensive Metabolic Panel (04/10/2022 8:20 [...] Organization Address City/State/ZIP Code Phon e Number [facility]- [address] [place] [id number] [place] [address] System [address] (ABNORMAL) CBC without Differential (04/10/2022 8:20 AM CDT) [facility] gist Method Time Signature Hemoglobin [...] [facility] Code Phon e Number [facility]- [address] [place] [phone] [place] [address] [place] [address] [address] (ABNORMAL) Tacrolimus, B (03/27/2022 8:12 AM CDT) [...] and its performa nce characteristics determined by [facility] in a manner consistent with CLIA requirements. This test has not been cleared or approved by the U.S. Mer d and Drug Administration. Specimen Anatomical Collection Method Collection Time Receive d Time (Source) Location / / Volume Laterality Blood (Blood, 03/27/2022 8:12 AM 03/28/20 22 7:31 Venous) CDT AM CDT Angélica Granger P.A.-C. LAB BLOOD NON ADD-ON Performing Organization Address [facility] Phon e Number [address] [place], [place] [address] [place] CMV DNA Detect / Quant, Plasma (03/27/2022 8:12 AM CDT) Patholo gist Method Time Signature CMV DNA Undetected Undetected 03/28/2022 [facility] Detect/Quant, IU/mL 2:45 PM CDT P Comment: Result in log IU/mL is Undetected. ----ADDITIONAL INFORMATION---- The quantification range of this assay i s 35 to 10,000,000 IU/mL (1.54 log to 7.00 log IU/mL). Testing was performed u sing the tika CMV test ([employer] with the tika [id number] System. Specimen Anatomical Collection Method Collection Time Receive d Time (Source) Location / / Volume Laterality Blood (Blood, 03/27/2022 8:12 AM 03/28/20 22 7:07 Venous) CDT AM CDT Angélica Granger P.A.-C. LAB MICROBIOLOGY - BLOOD ORD ERABLES Performing Organization Address City/[facility] Phon e Number [address] [place], [place] [address] [place], [place] [phone] [place] [address] Dr. [place] (ABNORMAL) Glucose, Fasting (03/27/2022 8:12 [...] Organization Address City/State/ZIP Code Phon e Number [facility]- [address] [place] [address] [place] [address] [place] [address] [address] (ABNORMAL) Comprehensive Metabolic Panel (03/27/2022 8:12 [...] Organization Address City/State/ZIP Code Phon e Number [address] [address] [place] [address] [address] (ABNORMAL) CBC without Differential (03/27/2022 8:12 AM CDT) [facility] gist Method Time Signature Hemoglobin 10.6 [...] P.A.-C. LAB BLOOD ADD-ON Performing Organization Address City/[facility] Phon e Number [address] [address] [place] [address] System [address] (ABNORMAL) Glucose, Fasting (03/20/2022 8:13 AM CDT) [...] LAB BLOOD NON ADD-ON Performing Organization Address City/[facility] Phon e Number [address] [phone] [place] [address] System [address] (ABNORMAL) Comprehensive Metabolic Panel (03/20/2022 8:13 [...] Organization Address City/State/ZIP Code Phon e Number [facility]- [address] [place] [address] [place] [address] [address] (ABNORMAL) CBC without Differential (03/20/2022 8:13 AM CDT) Patholo gist Method Time Signature Hemoglobin 11.0 (L) [...] Organization Address City/State/ZIP Code Phon e Number [facility]- [address] [place] [phone] [place] [address] (ABNORMAL) Tacrolimus, B (03/20/2022 8:12 AM CDT) athologist Signature Tacrolimus, B <1.0 (L) 5.0-15.0 03/21/2022 [facility] (Trough) 10:21 AM CDT ng/mL Comment: ----ADDITIONAL [...] and its performa nce characteristics determined by [facility] in a manner consistent with CLIA requirements. This test has not been cleared or approved by the U.S. Mer d and Drug Administration. Specimen Anatomical Collection Method Collection Time Receive d Time (Source) Location / / Volume Laterality Blood (Blood, 03/20/2022 8:12 AM 03/21/20 7:12 Venous) CDT AM CDT Angélica Granger P.A.-C. LAB BLOOD NON ADD-ON Performing Organization Address [facility] Phon e Number [address] [place], [place] [address] [place] (ABNORMAL) CMV DNA Detect / Quant, Plasma (03/20/2022 8:12 AM CDT) [facility] Method Time Signature CMV DNA <35 (A) Undetected 03/21/2022 [facility] Detect/Quant, IU/mL 7:41 PM CDT P Comment: [...] u sing the tika CMV test ([employer] with the tika 6800 System. Specimen Anatomical Collection Method Collection Time Receive d Time (Source) Location / / Volume Laterality Blood (Blood, 03/20/2022 8:12 AM 03/21/20 8:38 Venous) CDT AM CDT Angélica Granger P.A.-C. LAB MICROBIOLOGY - BLOOD ORD ERABLES Performing Organization Address City/[facility] Phon e Number [address] [place], [place] [address] [place] (ABNORMAL) Tacrolimus, B (03/13/2022 8:00 AM CDT) athologist Signature Tacrolimus, B 1.5 (L) 5.0-15.0 03/14/2022 [facility] (Trough) 11:19 AM CDT ng/mL Comment: ----ADDITIONAL [...] and its performa nce characteristics determined by [facility] in a manner consistent with CLIA requirements. [...] Organization Address City/State/ZIP Code Phon e Number [facility] [address] [place] [address] [address] [place] CMV DNA Detect / Quant, Plasma (03/13/2022 8:00 AM CDT) Patholo gist Method Time Signature CMV DNA Undetected Undetected 03/14/2022 [facility] Detect/Quant, IU/mL 9:15 PM CDT Comment: Result in log IU/mL is Undetected. ----ADDITIONAL INFORMATION---- The quantification range of this assay i s 35 to 10,000,000 IU/mL (1.54 log to 7.00 log IU/mL). Testing was performed u sing the tika CMV test ([employer] with the tika Kinnek0 System. Specimen Anatomical Collection Method Collection Time Receive d Time (Source) Location / / Volume Laterality Blood (Blood, 03/13/2022 8:00 AM 03/14/20 7:06 Venous) CDT AM CDT Angélica Granger P.A.-C. LAB MICROBIOLOGY - BLOOD ORD ERABLES Performing Organization Address City/State/ZIP Code Phon e Number [facility] [address] [place], [place] [address] [place] [id number] [facility] [address] [place] (ABNORMAL) Glucose, Fasting (03/13/2022 8:00 AM CDT) P athologist Signature Glucose, P 120 (H) 70 - 100 03/13/2022 CN[facility] mg/dL 8:26 AM CDT Last Intake 12 hr 03/13/2022 CN[facility] 8:02 AM CDT Specimen Anatomical Collection Method Collection Time Receive d Time (Source) Location / / Volume Laterality Blood (Blood, 03/13/2022 8:00 AM 03/13/20 8:02 Venous) CDT AM CDT Angélica Granger P.A.-C. LAB BLOOD NON ADD-ON Performing Organization Address City/[facility]/ZIP Code Phon e Number [address] [address] [place] [address] System [address] (ABNORMAL) Comprehensive Metabolic Panel (03/13/2022 8:00 [...] Organization Address City/State/ZIP Code Phon e Number [facility]- [address] [place] [address] [place] [address] [address] (ABNORMAL) CBC without Differential (03/13/2022 8:00 AM CDT) [facility] gist Method Time Signature Hemoglobin 10.8 (L) [...] P.A.-C. LAB BLOOD ADD-ON Performing Organization Address City/[facility] Phon e Number [address] [address] [place] [address] System [address] (ABNORMAL) Glucose, Fasting (02/27/2022 8:08 AM CDT) P athologist Signature Glucose, P 122 (H) 70 - 100 02/27/2022 CN[facility] mg/dL 8:32 AM CDT Last Intake 12 hr 02/27/2022 CN[facility] 8:10 AM CDT Specimen Anatomical Collection Method Collection Time Receive d Time (Source) Location / / Volume Laterality Blood (Blood, 02/27/2022 8:08 AM 02/28/20 8:09 Venous) CDT AM CDT Angélica Granger P.A.-C. LAB BLOOD NON ADD-ON Performing Organization Address City/[facility] Code Phon e Number [address] [address] [place] [address] System in [place] [address] [address] (ABNORMAL) Tacrolimus, B (02/27/2022 8:07 AM CDT) athologist Signature Tacrolimus, B 1.8 (L) 5.0-15.0 02/28/2022 [facility] (Trough) 11:05 AM CDT ng/mL Comment: ----ADDITIONAL [...] and its performa nce characteristics determined by [facility] in a manner consistent with CLIA requirements. This test has not been cleared or approved by the U.S. Mer d and Drug Administration. Specimen Anatomical Collection Method Collection Time Receive d Time (Source) Location / / Volume Laterality Blood (Blood, 02/27/2022 8:07 AM 02/29/20 7:35 Venous) CDT AM CDT Angélica Granger P.A.-C. LAB BLOOD NON ADD-ON Performing Organization Address City/State/ZIP Code Phon e Number [facility] [address] [place], [place] [address] [facility] [place], [place] [phone] [place] [address] [place] (ABNORMAL) CMV DNA Detect / Quant, Plasma (02/27/2022 8:07 AM CDT) Patholo gist Method Time Signature CMV DNA <35 (A) Undetected 02/28/2022 [facility] Detect/Quant, IU/mL 2:48 PM CDT P Comment: [...] performed u sing the tika CMV test ([employer] with the tika Kinnek0 System. Specimen Anatomical Collection Method Collection Time Receive d Time (Source) Location / / Volume Laterality Blood (Blood, 02/27/2022 8:07 AM 02/29/20 22 7:15 Venous) CDT AM CDT Angélica Granger P.A.-C. LAB MICROBIOLOGY - BLOOD ORD ERABLES Performing Organization Address City/State/ZIP Code Phon e Number [facility] [address] [place], [place] [address] [place] [address] [facility] [address] [place] (ABNORMAL) Comprehensive Metabolic Panel (02/27/2022 [...] 02/28/20 8:10 Venous) CDT AM CDT Angélica Gragner P.A.-C. LAB BLOOD ADD-ON Performing Organization Address City/State/[facility] CENTER Code Phon e Number [facility]- [address] [place] [address] [place] [address] [address] (ABNORMAL) CBC without Differential (02/27/2022 8:07 AM CDT) [facility] Method Time Signature Hemoglobin 10.7 (L) 13.2 [...] Laterality Blood (Blood, 02/27/2022 8:07 AM 02/28/20 22 8:09 Venous) CDT AM CDT Angélica Granger P.A.-C. LAB BLOOD ADD-ON Performing Organization Address City/[facility] Phon e Number [address] [address] [place] [address] System [place] [address] (ABNORMAL) Tacrolimus, B (02/20/2022 8:13 AM CDT) P athologist Signature Tacrolimus, B 1.7 (L) 5.0-15.0 02/21/2022 [facility] (Trough) 10:46 AM CDT ng/mL Comment: ----ADDITIONAL [...] and its performa nce characteristics determined by [facility] in a manner consistent with CLIA requirements. This test has not been cleared or approved by the U.S. Mer d and Drug Administration. Specimen Anatomical Collection Method Collection Time Receive d Time (Source) Location / / Volume Laterality Blood (Blood, 02/20/2022 8:13 AM 02/22/20 22 7:33 Venous) CDT AM CDT Angélica Granger P.A.-C. LAB BLOOD NON ADD-ON Performing Organization Address City/[facility]/ZIP Code Phon e Number [facility] [address] [place] [address] [place] [address] [place] CMV DNA Detect / Quant, Plasma (02/20/2022 8:13 AM CDT) Patholo gist Method Time Signature CMV DNA Undetected Undetected 02/21/2022 [facility] Detect/Quant, IU/mL 12:53 PM P CDT Comment: Result in log IU/mL is Undetected. ----ADDITIONAL INFORMATION---- The quantification range of this assay i s 35 to 10,000,000 IU/mL (1.54 log to 7.00 log IU/mL). Testing was performed u sing the tika CMV test ([employer] with the tika [id number] System. Specimen Anatomical Collection Method Collection Time Receive d Time (Source) Location / / Volume Laterality Blood (Blood, 02/20/2022 8:13 AM 02/22/20 7:13 Venous) CDT AM CDT Angélica Granger P.A.-C. LAB MICROBIOLOGY - BLOOD ORD ERABLES Performing Organization Address City/[facility] Phon e Number [address] [place], [place] [address] [place] [id number] [place] [address] Dr. MURILLO (ABNORMAL) Glucose, Fasting (02/20/2022 8:13 [...] LAB BLOOD NON ADD-ON Performing Organization Address City/[facility]/ZIP Code Phon e Number [address] [address] [place] [address] [address] (ABNORMAL) Comprehensive Metabolic Panel (02/20/2022 8:13 [...] P.A.-C. LAB BLOOD ADD-ON Performing Organization Address [facility] Phon e Number [address] [address] [place] [address] System in [address] (ABNORMAL) CBC without Differential (02/20/2022 8:13 AM CDT) Patholo gist Method Time Signature Hemoglobin 11.1 (L) 13.2 [...] P.A.-C. LAB BLOOD ADD-ON Performing Organization Address [facility] Code Phon e Number [facility]- [address] [place] [address] [place] [address] System in [address] (ABNORMAL) Tacrolimus, B (02/13/2022 7:47 AM CDT) [...] and its performa nce characteristics determined by [facility] in a manner consistent with CLIA requirements. [...] Organization Address City/State/ZIP Code Phon e Number [facility] [address] [place] [address] [place] [address] Laboratory Medicine and Pathology [address] [place] (ABNORMAL) Glucose, Fasting (02/13/2022 7:47 [...] Organization Address City/State/ZIP Code Phon e Number [address] [address] [place] [address] System in [address] (ABNORMAL) Comprehensive Metabolic Panel (02/13/2022 7:47 [...] Laterality Blood (Blood, 02/13/2022 7:47 AM 02/14/20 22 7:50 Venous) CDT AM CDT Angélica Granger P.A.-C. LAB BLOOD ADD-ON Performing Organization Address City/[facility] Code Phon e Number [address] [address] [place] [address] System in [address] (ABNORMAL) CBC without Differential (02/13/2022 7:47 AM CDT) [facility] gist Method Time Signature Hemoglobin 11.4 (L) 13.2 [...] Organization Address City/State/ZIP Code Phon e Number [address] [address] [place] [address] [address] CMV DNA Detect / Quant, Plasma (02/13/2022 7:46 AM CDT) Patholo gist Method Time Signature CMV DNA Undetected Undetected 02/15/2022 [facility] Detect/Quant, IU/mL 6:53 PM CDT P Comment: Result in log IU/mL is Undetected. ----ADDITIONAL INFORMATION---- The quantification range of this assay i s 35 to 10,000,000 IU/mL (1.54 log to 7.00 log IU/mL). Testing was performed u sing the tika CMV test ([employer] with the tika [id number] System. Specimen Anatomical Collection Method Collection Time Receive d Time (Source) Location / / Volume Laterality Blood (Blood, 02/13/2022 7:46 AM 02/15/20 7:43 Venous) CDT AM CDT Angélica Granger P.A.-C. LAB MICROBIOLOGY - BLOOD ORD ERABLES Performing Organization Address City/State/ZIP Code Phon e Number [facility] [address] [place] [address] SUPPORT CENTER [facility] [place] [place] [address] Laboratory Medicine and Pathology [address] [place] (ABNORMAL) Tacrolimus, B (02/06/2022 8:06 AM CDT) athologist Signature Tacrolimus, B 1.5 (L) 5.0-15.0 02/07/2022 [facility] (Trough) 10:49 AM CDT ng/mL Comment: ----ADDITIONAL [...] and its performa nce characteristics determined by [facility] in a manner consistent with CLIA requirements. This test has not been cleared or approved by the U.S. Mer d and Drug Administration. Specimen Anatomical Collection Method Collection Time Receive d Time (Source) Location / / Volume Laterality Blood (Blood, 02/06/2022 8:06 AM 02/08/20 7:29 Venous) CDT AM CDT Angélica Granger P.A.-C. LAB BLOOD NON ADD-ON Performing Organization Address [facility] Phon e Number [facility] [address] [place] [address] [address] [facility] [place] [address] Laboratory Medicine and Pathology [address] [place] [address] Dr. MURILLO (ABNORMAL) CMV DNA Detect / Quant, Plasma (02/06/2022 8:06 AM CDT) Patholo gist Method Time Signature CMV DNA <35 (A) Undetected 02/07/2022 [facility] Detect/Quant, IU/mL 4:06 PM CDT P Comment: [...] performed u sing the tika CMV test ([employer] with the tika [id number] System. Specimen Anatomical Collection Method Collection Time Receive d Time (Source) Location / / Volume Laterality Blood (Blood, 02/06/2022 8:06 AM 02/08/20 7:50 Venous) CDT AM CDT Angélica Granger P.A.-C. LAB MICROBIOLOGY - BLOOD ORD ERABLES Performing Organization Address [facility] Phon e Number [address] [place], [place] [address] [facility] [place] [address] Laboratory Medicine and Pathology [address] [place] [address] Dr. MURILLO (ABNORMAL) Glucose, Fasting (02/06/2022 8:06 AM CDT) P athologist Signature Glucose, P 127 (H) 70 [...] Organization Address City/State/ZIP Code Phon e Number [facility]- [address] [place] [address] [place] [address] [place] [address] System in [place] [address] Bl (ABNORMAL) Comprehensive Metabolic Panel (02/06/2022 8:06 AM [...] eGFR-Black/Afri 20 (L) >=60 02/06/2022 CNFL can [place] mL/min/BSA 8:45 AM CDT Comment: ----ADDITIONAL INFORMATION---- Estimated GFR calculated using the 2009 CKD_EPI creatinine equation. eGFR Non-Black/ 17 (L) >=60 mL/min/BSA 02/06/2022 8:45 AM CDT CNFL [place] Comment: ----ADDITIONAL INFORMATION---- Estimated GFR calculated using [...] MEDICAL CENTER Code Phon e Number [address] [address] [place] [address] System [address] (ABNORMAL) CBC without Differential (02/06/2022 8:06 AM CDT) [facility] Method Time Signature Hemoglobin 11.7 (L) 13.2 [...] P.A.-C. LAB BLOOD ADD-ON Performing Organization Address City/[facility] Phon e Number [address] [address] [place] [address] System in [address] (ABNORMAL) Tacrolimus, B (01/30/2022 8:04 AM CDT) P athologist Signature Tacrolimus, B 2.7 (L) 5.0-15.0 01/31/2022 [facility] (Trough) 11:14 AM CDT ng/mL Comment: ----ADDITIONAL [...] and its performa nce characteristics determined by [facility] in a manner consistent with CLIA requirements. [...] Organization Address City/State/ZIP Code Phon e Number [facility] [address] [place], [place] [address] [place] [address] [place] [address] Laboratory Medicine and Pathology [address] [place] CMV DNA Detect / Quant, Plasma (01/30/2022 8:04 AM CDT) Patholo gist Method Time Signature CMV DNA Undetected Undetected 01/31/2022 [facility] Detect/Quant, IU/mL 2:38 PM CDT P Comment: Result in log IU/mL is Undetected. ----ADDITIONAL INFORMATION---- The quantification range of this assay i s 35 to 10,000,000 IU/mL (1.54 log to 7.00 log IU/mL). Testing was performed u sing the tika CMV test ([employer] with the tika [id number] System. Specimen Anatomical Collection Method Collection Time Receive d Time (Source) Location / / Volume Laterality Blood (Blood, 01/30/2022 8:04 AM 02/01/20 7:07 Venous) CDT AM CDT Angélica Granger P.A.-C. LAB MICROBIOLOGY - BLOOD ORD ERABLES Performing Organization Address City/State/ZIP Code Phon e Number [facility] [address] [place], [place] [address] SUPPORT CENTER [facility] [place] [address] Laboratory Medicine and Pathology [address] [place] [address] Dr. MURILLO (ABNORMAL) Glucose, Fasting (01/30/2022 8:04 AM CDT) athologist Signature Glucose, P 113 (H) 70 - 100 01/30/2022 CNFL mg/dL 8:34 AM CDT Last Intake 11 hr 01/30/2022 CNFL 8:04 AM CDT Specimen Anatomical Collection Method Collection Time Receive d Time (Source) Location / / Volume Laterality Blood (Blood, 01/30/2022 8:04 AM 01/31/20 22 8:05 Venous) CDT AM CDT Angélica Granger P.A.-C. LAB BLOOD NON ADD-ON Performing Organization Address City/State/ZIP Code Phon e Number [address] [address] [place] [address] [address] (ABNORMAL) Comprehensive Metabolic Panel (01/30/2022 8:04 AM CDT) [facility] Signature Potassium, P 3.7 3.6 - [...] eGFR-Black/Afri <15 (L) >=60 01/30/2022 CNFL can [place] mL/min/BSA 8:36 AM CDT Comment: ----ADDITIONAL INFORMATION---- Estimated GFR calculated using the 2009 CKD_EPI creatinine equation. eGFR Non-Black/ <15 (L) >=60 mL/min/BSA 01/30/2022 8:36 AM CDT CNFL [place] Comment: ----ADDITIONAL INFORMATION---- Estimated GFR calculated using [...] Organization Address City/State/ZIP Code Phon e Number [facility]- [address] [place] [address] [place] [address] System [address] (ABNORMAL) CBC without Differential (01/30/2022 8:04 AM CDT) [facility] gist Method Time Signature Hemoglobin 11.2 [...] P.A.-C. LAB BLOOD ADD-ON Performing Organization Address City/[facility]/ZIP Code Phon e Number [facility]- [address] [place] [address] [place] [address] System [address] (ABNORMAL) Tacrolimus, B (01/23/2022 8:11 AM CDT) P athologist Signature Tacrolimus, B 1.4 (L) 5.0-15.0 01/24/2022 [facility] (Trough) 10:49 AM CDT ng/mL Comment: ----ADDITIONAL [...] and its performa nce characteristics determined by [facility] in a manner consistent with CLIA requirements. This test has not been cleared or approved by the U.S. Mer d and Drug Administration. Specimen Anatomical Collection Method Collection Time Receive d Time (Source) Location / / Volume Laterality Blood (Blood, 01/23/2022 8:11 AM 01/25/20 7:57 Venous) CDT AM CDT Angélica Granger P.A.-C. LAB BLOOD NON ADD-ON Performing Organization Address City/State/ZIP Code Phon e Number [facility] [address] [place], [place] [address] SUPPORT [facility] [place] [address] Laboratory Medicine and Pathology [address] [place] (ABNORMAL) CMV DNA Detect / Quant, Plasma (01/23/2022 8:11 AM CDT) Patholo gist Method Time Signature CMV DNA <35 (A) Undetected 01/24/2022 [facility] Detect/Quant, IU/mL 1:06 PM CDT P Comment: [...] u sing the tika CMV test ([employer] with the tika [id number] System. Specimen Anatomical Collection Method Collection Time Receive d Time (Source) Location / / Volume Laterality Blood (Blood, 01/23/2022 8:11 AM 01/25/20 22 7:18 Venous) CDT AM CDT Angélica Granger P.A.-C. LAB MICROBIOLOGY - BLOOD ORD ERABLES Performing Organization Address City/State/ZIP Code Phon e Number [facility] [address] [place], [place] [address] [place] [address] CENTER [facility] [place] [address] Laboratory Medicine and Pathology [address] [place] Glucose, Fasting (01/23/2022 8:11 AM CDT) P athologist Signature Glucose, P 99 70 - 100 01/23/2022 CNFL mg/dL 8:32 AM CDT Last Intake 12 hr 01/23/2022 CNFL 8:11 AM CDT Specimen Anatomical Collection Method Collection Time Receive d Time (Source) Location / / Volume Laterality Blood (Blood, 01/23/2022 8:11 AM 01/24/20 22 8:13 Venous) CDT AM CDT Angélica Granger P.A.-C. LAB BLOOD NON ADD-ON Performing Organization Address City/[facility] Phon e Number [address] [address] [place] [address] [address] (ABNORMAL) Comprehensive Metabolic Panel (01/23/2022 8:11 [...] eGFR-Black/Afri 20 (L) >=60 01/23/2022 CNFL can [place] mL/min/BSA 8:36 AM CDT Comment: ----ADDITIONAL INFORMATION---- Estimated GFR calculated using the 2009 CKD_EPI creatinine equation. eGFR Non-Black/ 17 (L) >=60 mL/min/BSA 01/23/2022 8:36 AM CDT CNFL [place] Comment: ----ADDITIONAL INFORMATION---- Estimated GFR calculated using [...] 01/24/20 22 8:13 Venous) CDT AM CDT Angélica Granger P.A.-C. LAB BLOOD ADD-ON Performing Organization Address [facility] Phon e Number [address] [address] [place] [address] [address] (ABNORMAL) CBC without Differential (01/23/2022 8:11 AM CDT) [facility] gist Method Time Signature Hemoglobin 12.0 [...] 01/24/20 22 8:13 Venous) CDT AM CDT Angélica Granger P.A.-C. LAB BLOOD ADD-ON Performing Organization Address City/[facility] Phon e Number [address] [address] [place] [address] [address] (ABNORMAL) Tacrolimus, B (01/16/2022 8:09 AM CDT) P athologist Signature Tacrolimus, B 2.2 (L) 5.0-15.0 01/17/2022 [facility] (Trough) 10:46 AM CDT ng/mL Comment: ----ADDITIONAL [...] and its performa nce characteristics determined by [facility] in a manner consistent with CLIA requirements. This test has not been cleared or approved by the U.S. Mer d and Drug Administration. Specimen Anatomical Collection Method Collection Time Receive d Time (Source) Location / / Volume Laterality Blood (Blood, 01/16/2022 8:09 AM 01/18/20 7:08 Venous) CDT AM CDT Angélica Granger P.A.-C. LAB BLOOD NON ADD-ON Performing Organization Address City/State/ZIP Code Phon e Number [facility] [address] [place], [place] [address] SUPPORT CENTER [facility] [place] [address] Laboratory Medicine and Pathology [address] [place] (ABNORMAL) CMV DNA Detect / Quant, Plasma (01/16/2022 8:09 AM CDT) Patholo gist Method Time Signature CMV DNA <35 (A) Undetected 01/17/2022 [facility] Detect/Quant, IU/mL 3:56 PM CDT P Comment: [...] performed u sing the tika CMV test ([employer] with the tika [id number] System. Specimen Anatomical Collection Method Collection Time Receive d Time (Source) Location / / Volume Laterality Blood (Blood, 01/16/2022 8:09 AM 01/18/20 7:07 Venous) CDT AM CDT Angélica Granger P.A.-C. LAB MICROBIOLOGY - BLOOD ORD ERABLES Performing Organization Address City/State/ZIP Code Phon e Number [facility] [address] [place], [place] [address] [place] [address] CENTER [facility] [place] [address] Laboratory Medicine and Pathology [address] [place] (ABNORMAL) Glucose, Fasting (01/16/2022 8:09 [...] LAB BLOOD NON ADD-ON Performing Organization Address City/[facility] Code Phon e Number [address] [address] [place] [address] System in [address] (ABNORMAL) Comprehensive Metabolic Panel (01/16/2022 8:09 [...] eGFR-Black/Afri 20 (L) >=60 01/16/2022 CNFL can [place] mL/min/BSA 8:34 AM CDT Comment: ----ADDITIONAL INFORMATION---- Estimated GFR calculated using the 2009 CKD_EPI creatinine equation. eGFR Non-Black/ 18 (L) >=60 mL/min/BSA 01/16/2022 8:34 AM CDT CNFL [place] Comment: ----ADDITIONAL INFORMATION---- Estimated GFR calculated using [...] Organization Address City/State/ZIP Code Phon e Number [facility]- [address] [place] [phone] [place] [address] System in [address] (ABNORMAL) CBC without Differential (01/16/2022 8:09 AM CDT) Patholo gist Method Time Signature Hemoglobin 11.9 (L) [...] Organization Address City/State/ZIP Code Phon e Number [facility]- [address] [place] [address] [place] [address] [address] (ABNORMAL) Tacrolimus, B (01/09/2022 8:07 AM CDT) P athologist Signature Tacrolimus, B 3.0 (L) 5.0-15.0 [...] and its performa nce characteristics determined by [facility] in a manner consistent with CLIA requirements. This test has not been cleared or approved by the U.S. Mer d and Drug Administration. Specimen Anatomical Collection Method Collection Time Receive d Time (Source) Location / / Volume Laterality Blood (Blood, 01/09/2022 8:07 AM 01/11/20 22 7:18 Venous) CDT AM CDT Angélica Granger P.A.-C. LAB BLOOD NON ADD-ON Performing Organization Address [facility] Phon e Number [address] [place] [address] SUPPORT CENTER [facility] [place] [address] Laboratory Medicine and Pathology [address] [place] [address] Dr. MURILLO (ABNORMAL) CMV DNA Detect / Quant, Plasma (01/09/2022 8:07 AM CDT) [facility] Method Time Signature CMV DNA 91 (A) Undetected 01/10/2022 [facility] Detect/Quant, IU/mL 2:49 PM CDT P Comment: Result in log IU/mL is 1.96. ----ADDITIONAL INFORMATION---- The quantification range of this assay i s 35 to 10,000,000 IU/mL (1.54 log to 7.00 log IU/mL). Testing was performed u sing the tika CMV test ([employer] with the tika [id number] System. Specimen Anatomical Collection Method Collection Time Receive d Time (Source) Location / / Volume Laterality Blood (Blood, 01/09/2022 8:07 AM 01/11/20 22 7:13 Venous) CDT AM CDT Angélica Granger P.A.-C. LAB MICROBIOLOGY - BLOOD ORD ERABLES Performing Organization Address City/[facility]/ZIP [facility] Phon e Number [address] [place] [address] SUPPORT CENTER [facility] [place] [address] Laboratory Medicine and Pathology [address] [place] [address] Dr. MURILLO (ABNORMAL) Glucose, Fasting (01/09/2022 8:07 AM CDT) P athologist Signature Glucose, P [...] Organization Address City/State/ZIP Code Phon e Number [address] [address] [place] [address] System [address] (ABNORMAL) Comprehensive Metabolic Panel (01/09/2022 8:07 [...] eGFR-Black/Afri 20 (L) >=60 01/09/2022 CNFL can [place] mL/min/BSA 8:37 AM CDT Comment: ----ADDITIONAL INFORMATION---- Estimated GFR calculated using the 2009 CKD_EPI creatinine equation. eGFR Non-Black/ 17 (L) >=60 mL/min/BSA 01/09/2022 8:37 AM CDT CNFL [place] Comment: ----ADDITIONAL INFORMATION---- Estimated GFR calculated using [...] Organization Address City/State/ZIP Code Phon e Number [facility]- [address] [place] [address] [place] [address] System [address] (ABNORMAL) CBC without Differential (01/09/2022 8:07 AM CDT) [facility] gist Method Time Signature Hemoglobin 11.3 (L) 13.2 [...] MEDICAL CENTER Code Phon e Number [address] [address] [place] [address] System [address] (ABNORMAL) Tacrolimus, B (01/02/2022 8:02 AM CDT) [...] and its performa nce characteristics determined by [facility] in a manner consistent with CLIA requirements. This test has not been cleared or approved by the U.S. Mer d and Drug Administration. Specimen Anatomical Collection Method Collection Time Receive d Time (Source) Location / / Volume Laterality Blood (Blood, 01/02/2022 8:02 AM 01/04/20 6:56 Venous) CDT AM CDT Angélica Granger P.A.-C. LAB BLOOD NON ADD-ON Performing Organization Address [facility] Phon e Number [facility] [address] [place] [address] Dr [place] [address] [address] [facility] [place] [address] Laboratory Medicine and Pathology [address] [place] [address] Dr. MURILLO (ABNORMAL) CMV DNA Detect / Quant, Plasma (01/02/2022 8:02 AM CDT) [facility] Method Time Signature CMV DNA 65 (A) Undetected 01/03/2022 [facility] Detect/Quant, IU/mL 2:16 PM CDT P Comment: Result in log IU/mL is 1.81. ----ADDITIONAL INFORMATION---- The quantification range of this assay i s 35 to 10,000,000 IU/mL (1.54 log to 7.00 log IU/mL). Testing was performed u sing the tika CMV test ([employer] with the tika [id number] System. Specimen Anatomical Collection Method Collection Time Receive d Time (Source) Location / / Volume Laterality Blood (Blood, 01/02/2022 8:02 AM 01/04/20 7:09 Venous) CDT AM CDT Angélica Granger P.A.-C. LAB MICROBIOLOGY - BLOOD ORD ERABLES Performing Organization Address City/[facility] Phon e Number [address] [place] [address] 05 [place] [address] Laboratory Medicine and Pathology [address] [place] [address] Dr. MURILLO (ABNORMAL) Glucose, Fasting (01/02/2022 8:02 AM CDT) P athologist Signature Glucose, P 106 (H) 70 [...] Organization Address City/State/ZIP Code Phon e Number [facility]- [address] [place] [address] [place] [address] [place] [address] System in [place] [address] [address] (ABNORMAL) Comprehensive Metabolic Panel (01/02/2022 8:02 AM [...] eGFR-Black/Afri 18 (L) >=60 01/02/2022 CNFL can [place] mL/min/BSA 8:36 AM CDT Comment: ----ADDITIONAL INFORMATION---- Estimated GFR calculated using the 2009 CKD_EPI creatinine equation. eGFR Non-Black/ 15 (L) >=60 mL/min/BSA 01/02/2022 8:36 AM CDT CNFL [place] Comment: ----ADDITIONAL INFORMATION---- Estimated GFR calculated using [...] P.A.-C. LAB BLOOD ADD-ON Performing Organization Address [facility]/State/[facility] Phon e Number [address] [place] [address] (ABNORMAL) CBC without Differential (01/02/2022 8:02 AM CDT) [facility] gist Method Time Signature Hemoglobin 10.8 (L) [...] Laterality Blood (Blood, 01/02/2022 8:02 AM 01/03/20 22 8:03 Venous) CDT AM CDT Angélica Granger P.A.-C. LAB BLOOD ADD-ON Performing Organization Address City/[facility] Phon e Number [address] [address] [place] [address] [address] Tacrolimus, B (12/26/2021 8:07 AM CDT) athologist Signature Tacrolimus, B 6.0 5.0-15.0 12/27/2021 [facility] (Trough) 10:01 AM CDT ng/mL Comment: ----ADDITIONAL [...] and its performa nce characteristics determined by [facility] in a manner consistent with CLIA requirements. [...] Organization Address City/State/ZIP Code Phon e Number [facility] [address] [place] [address] [place] [address] [place] [address] Laboratory Medicine and Pathology [address] [place] (ABNORMAL) CMV DNA Detect / Quant, Plasma (12/26/2021 8:07 AM CDT) Patholo gist Method Time Signature CMV DNA 313 (A) Undetected 12/27/2021 [facility] Detect/Quant, IU/mL 3:07 PM CDT P Comment: Result in log IU/mL is 2.50. ----ADDITIONAL INFORMATION---- The quantification range of this assay i s 35 to 10,000,000 IU/mL (1.54 log to 7.00 log IU/mL). Testing was performed u sing the tika CMV test ([employer] with the tika [id number] System. Specimen Anatomical Collection Method Collection Time Receive d Time (Source) Location / / Volume Laterality Blood (Blood, 12/26/2021 8:07 AM 12/28/19 22 7:06 Venous) CDT AM CDT Angélica Granger P.A.-C. LAB MICROBIOLOGY - BLOOD ORD ERABLES Performing Organization Address City/State/ZIP Code Phon e Number [facility] [address] [place], [place] [address] [place] [address] Laboratory Medicine and Pathology [address] [place] (ABNORMAL) Glucose, Fasting (12/26/2021 8:07 AM CDT) P athologist Signature Glucose, P 109 (H) 70 [...] Organization Address City/State/ZIP Code Phon e Number [address] [address] [place] [address] [address] (ABNORMAL) Comprehensive Metabolic Panel (12/26/2021 8:07 [...] eGFR-Black/Afri 17 (L) >=60 12/26/2021 CNFL can [place] mL/min/BSA 8:41 AM CDT Comment: ----ADDITIONAL INFORMATION---- Estimated GFR calculated using the 2009 CKD_EPI creatinine equation. eGFR Non-Black/ <15 (L) >=60 mL/min/BSA 12/26/2021 8:41 AM CDT CNFL [place] Comment: ----ADDITIONAL INFORMATION---- Estimated GFR calculated using [...] P.A.-C. LAB BLOOD ADD-ON Performing Organization Address City/[facility] Phon e Number [address] [address] [place] [address] [address] (ABNORMAL) CBC without Differential (12/26/2021 8:07 AM CDT) [facility] gist Method Time Signature Hemoglobin 10.6 [...] Organization Address City/State/ZIP Code Phon e Number [address] [address] [place] [address] [address] Glucose, Fasting (12/19/2021 8:36 AM CDT) athologist [...] LAB BLOOD NON ADD-ON Performing Organization Address City/[facility]/ZIP [facility] Phon e Number [address] [address] [place] [address] [address] Tacrolimus, B (12/19/2021 8:35 AM CDT) athologist Signature Tacrolimus, B 7.8 5.0-15.0 12/20/2021 [facility] (Trough) 10:40 AM CDT ng/mL Comment: ----ADDITIONAL [...] and its performa nce characteristics determined by [facility] in a manner consistent with CLIA requirements. This test has not been cleared or approved by the U.[place]. Mer d and Drug Administration. Specimen Anatomical Collection Method Collection Time Receive d Time (Source) Location / / Volume Laterality Blood (Blood, 12/19/2021 8:35 AM 12/21/19 22 7:30 Venous) CDT AM CDT Angélica Granger P.A.-C. LAB BLOOD NON ADD-ON Performing Organization Address [facility] Phon e Number [facility] [address] [place], [place] [address] [facility] [place] [address] Laboratory Medicine and Pathology [address] [place] [address] Dr. M[place]ILLO (ABNORMAL) CMV DNA Detect / Quant, Plasma (12/19/2021 8:35 AM CDT) Patholo gist Method Time Signature CMV DNA <35 (A) Undetected 12/20/2021 [facility] Detect/Quant, IU/mL 1:21 PM CDT P Comment: [...] performed u sing the tika CMV test ([employer] with the tika [id number] System. Specimen Anatomical Collection Method Collection Time Receive d Time (Source) Location / / Volume Laterality Blood (Blood, 12/19/2021 8:35 AM 12/21/19 7:18 Venous) CDT AM CDT Angélica Granger P.A.-C. LAB MICROBIOLOGY - BLOOD ORD ERABLES Performing Organization Address [facility] Phon e Number [facility] [address] [place] [address] Dr [place], [place] [address] [facility] [place] [address] Laboratory Medicine and Pathology [address] [place] [address] Dr. MURILLO (ABNORMAL) Comprehensive Metabolic Panel (12/19/2021 [...] eGFR-Black/Afri 16 (L) >=60 12/19/2021 CNFL can [place] mL/min/BSA 8:57 AM CDT Comment: ----ADDITIONAL INFORMATION---- Estimated GFR calculated using the 2009 CKD_EPI creatinine equation. eGFR Non-Black/ <15 (L) >=60 mL/min/BSA 12/19/2021 8:57 AM CDT CNFL [place] Comment: ----ADDITIONAL INFORMATION---- Estimated GFR calculated using [...] Laterality Blood (Blood, 12/19/2021 8:35 AM 12/20/19 22 8:37 Venous) CDT AM CDT Angélica Granger P.A.-C. LAB BLOOD ADD-ON Performing Organization Address [facility] Phon e Number [address] [address] [place] [address] System [address] (ABNORMAL) CBC without Differential (12/19/2021 8:35 AM CDT) [facility] gist Method Time Signature Hemoglobin 10.3 [...] Laterality Blood (Blood, 12/19/2021 8:35 AM 12/20/19 22 8:37 Venous) CDT AM CDT Angélica Granger P.A.-C. LAB BLOOD ADD-ON Performing Organization Address City/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) Other Secondary Hypertension Other Bipolar Disorder (HCC) Hyperlipidemia Chronic Obstructive Pulmonary Disease Wi thout Exacerbation (HCC) Anemia Screening Examination Prostate Cancer Colitis Cytomegalovirus (HCC) documented in this encounter Additional Health Concerns Assessment Noted Time PHQ-9 Depression Total Score: 4 11/28/2020 10:17 AM CD T documented as of this encounter Care Teams International Project Manager Relationship Specialty Start Date End Date Elsewhere, Pcp PCP - General Family Medicine 07/29/17 [facility] - Laboratory Medicine 04/12/20 [place] [phone] documented as of this encounter
--- OUTSIDE RECORDS SUMMARY | 2022-04-13 11:58 | XMS_ITS | Encounter Summary ---
:1955 Author Organization [facility] Address [address] [place] [address] Care Team Providers Name Role Phone Elsewhere, Pcp Primary Care Provider Unavailable Reason for Referral Outpatient (Routine) - Closed Specialty Diagnoses / Procedures Referred By Contact Refer red To Contact Diagnoses Nodules Pulmonary Leonid Bridges M.D. [facility] Procedures Bronchoscopy (Adult): 200 [place], [place] [address] Referral ID Status Reason Start Date Expiration Date Visits Requ ested Visits Authorized [id number] Closed 12/05/2021 12/05/2022 1 1 Reason for Visit Outpatient (Routine) - Closed Specialty Diagnoses / Procedures Referred By Contact Refer red To Contact Diagnoses Nodules Pulmonary Leonid Bridges M.D. [facility] Procedures Bronchoscopy (Adult): [address] [place] [phone] Referral ID Status Reason Start Date Expiration Date Visits Requ ested Visits Authorized [id number] Closed 12/05/2021 12/05/2022 1 1 Encounter Details Date Type Department Care Team Description 12/07/2021 Hospital Encounter Division of Carlos Becker Nodules Pulmonary Pulmonary Medicine [facility] in [place], [address] [place], [place] 200 [facility] [address] [place], [place] [phone] (Work) [phone] Social History Tobacco Use Types Packs/Day Years [...] or relatives? How often do you attend mu-ism or More than 4 times per year 12/15/2021 spiritism services? 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 0 2017 tablet acetaminophen (TYLENOL) Take 1 tablet by 0 [...] mouth as directed. Prior to dental procedures atorvastatin (LIPITOR) TAKE 1 TABLET(10 90 tablet [...] mouth at bedtime as needed for sleep. torsemide (DEMADEX) 10 Take 3 tablets (30 60 tablet 1 10/1701/31/2022 mg tablet mg total) by mouth daily. valGANciclovir (VALCYTE) Take 1 tablet (450 45 tablet 0 12/27/2021 450 mg mg total) by mouth tabletIndications: every other day. 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 Medication Therapy Custodial Not Anticoagulant pen needle, diabetic 1 Injection [...] Medication Therapy Long day. Term Not Anticoagulant documented as of this encounter H&P Notes Harper Jarrett Admin Closure - 12/07/2021 8:00 AM CDT Administrative Closure: This record is being filed as incomplete for a missing Interval H&P. Health Information Management Services documented in this encounter OR Notes Op Note - Carlos Becker M.D. - 12/07/2021 8:00 AM CDT Done in the [facility], [facility] Floor [facility]. PRE-OPERATIVE DIAGNOSIS Possible opportunistic infection. INDICATION: Abnormal CT scan of the chest. POST-OPERATIVE DIAGNOSIS Possible opportunistic infection. PROCEDURE: Flexible bronchoscopy, bronchoalveolar lavage for immunocompromised host, lingula. OPERATIVE NOTE NARRATIVE After appropriate COVID review, informed consent, procedural pause, intravenous conscious sedation and local anesthesia, inspection of the larynx and trachea revealed no obvious abnormality. We went directly to the lingula and irrigated with 80 cc of saline, receiving 40 cc that were sent for immunocompromised host protocol. I completed inspection of the left and right bronchial tree and did not encounter a lot of mucopurulent secretions. At the end of the procedure, there was a little bit of emesison the patient's side, but it was readily controlled with suctioning. SPECIMENS: As above. BLEEDING: None. ANESTHESIA: Intravenous conscious sedation with local anesthesia. SURGEON: Carlos Becker M.D. TPR: [address] Job ID: [id number] documented in this encounter Plan of Treatment Upcoming Encounters Date Type Specialty Care Team Description 04/24/2022 Appointment Laboratory Medicine Angélica Granger P.A.-C. [address] [place] [phone] 04/25/2022 Office Visit Otorhinolaryngology Dex Matta APRN, C.N.P., M.S.N. [address] [place] [phone] 05/08/2022 Appointment Laboratory Medicine Angélica Granger P.A.-C. [address] [place] [phone] 05/08/2022 Clinical Admitting/Central Communication Scheduling 05/10/2022 Appointment Radiology Jeremie Rose M.D. [address] [place] [phone] 05/10/2022 Comprehensive Visit Orthopedic Surgery Warner Graves M.D. [address] [place] [phone] 05/22/2022 Appointment Laboratory Medicine Angélica Granger P.A.-C. [address] [place] [phone] 06/05/2022 Appointment Laboratory Medicine Angélica Granger P.A.-C. [address] [place] [phone] 06/19/2022 Appointment Laboratory Medicine Angélica Granger P.A.-C. [address] [place] [phone] 07/03/2022 Appointment Laboratory Medicine Angélica Granger P.A.-C. [address] [place] [phone] 07/17/2022 Appointment Laboratory Medicine Angélica Granger P.A.-C. [address] [place] [phone] 07/31/2022 Appointment Laboratory Medicine Angélica Granger P.A.-C. [address] [place] [phone] 08/14/2022 Appointment Laboratory Medicine Angélica Granger P.A.-C. [address] [place] [phone] 08/28/2022 Appointment Laboratory Medicine Angélica Granger P.A.-C. 200 [place] [phone] Scheduled Orders Name Type Priority Associated Diagnoses Order S chedule Bronchoscopy (Adult): Procedures Routine Nodules Pulmonary O nce for 1 Occurrences Multiple starting 2021 until 2 documented as of this encounter Procedures Procedure Name Priority Date/Time Associated Comments Diagnosis SARS COV-2 RNA, PCR, Routine 12/07/2021 8:13 AM Nodules Pulmon marimar Results for this VARIES CDT Multiple procedure are i n the results section. CYTOLOGY NON-SLP TEACHER Routine 12/07/2021 8:13 AM Nodules Pulmonary Results for this CDT Multiple procedure are i n the results section. ADENOVIRUS PCR Routine 12/07/2021 8:13 AM Nodules Pulmonary Re sults for this CDT Multiple procedure are i n the results section. CELL COUNT AND Routine 12/07/2021 8:13 AM Nodules Pulmonary Re sults for this DIFFERENTIAL, CDT Multiple procedure are in BROCHOALVEOLAR LAVAGE the re sults section. PNEUMOCYSTIS PCR Routine 12/07/2021 8:13 AM Nodules Pulmonary Results for this CDT Multiple procedure are i n the results section. INFLUENZA A/B AND RSV, Routine 12/07/2021 8:13 AM Nodules Pulm onary Results for this PCR, MISC CDT Multiple procedure are i n the results section. BACTERIAL CULTURE, Routine 12/07/2021 8:13 AM Nodules Pulmonar y Results for this AEROBIC + SUSC, RESP CDT Multiple procedu re are in the results section. NOCARDIA STAIN Routine 12/07/2021 8:13 AM Nodules Pulmonary Re sults for this CDT Multiple procedure are i n the results section. LEGIONELLA PCR Routine 12/07/2021 8:13 AM Nodules Pulmonary Re sults for this CDT Multiple procedure are i n the results section. ASPERGILLUS AG, BAL Routine 12/07/2021 8:13 AM Nodules Pulmona ry Results for this CDT Multiple procedure are i n the results section. MYCOBACTERIAL CULTURE, Routine 12/07/2021 8:13 AM Nodules Pulm onary Results for this V CDT Multiple procedure are i n the results section. FUNGAL SMEAR Routine 12/07/2021 8:13 AM Nodules Pulmonary Resu lts for this CDT Multiple procedure are i n the results section. LEGIONELLA CULTURE Routine 12/07/2021 8:13 AM Nodules Pulmonar y Results for this CDT Multiple procedure are i n the results section. ACID FAST SMEAR FOR Routine 12/07/2021 8:13 AM Nodules Pulmona ry Results for this MYCOBACTERIUM CDT Multiple procedure are in the results section. GRAM STAIN Routine 12/07/2021 8:13 AM Nodules Pulmonary Resu lts for this CDT Multiple procedure are i n the results section. FUNGAL CULTURE, ROUTINE Routine 12/07/2021 8:13 AM Nodules Pul monary Results for this CDT Multiple procedure are i n the results section. documented in this encounter Results SARS CoV-2 RNA, PCR, Varies (12/07/2021 8:13 AM CDT) Component Value Ref Range Test Analysis Performed Pathologis t Method Time At Signature SARS CoV-2 [facility], 12/07/2021 DTL RNA, PCR, Bronchoalveolar 1:39 PM CDT Source [facility] SARS CoV-2 Undetected Undetected 12/07/2021 DTL RNA, PCR 1:39 PM CDT Comment: SARS-CoV-2 RNA absent. This result does not rule out COVID-19 in the patient, as the sensitivity of the test depends o n the timing of the specimen collection and quality of the specimen. Result should be correlated with patient's history and clinical presentat ion. ----ADDITIONAL INFORMATION---- This RT-PCR test has received Emergency Use Authorization (EUA) by the U.S. Food and Drug Administration an d is used per tape rules printing machine operator's instructions. Performance characteristics were verified by [facility] in a manner consistent with CLIA requirements. Visit the CDC website: https://www.cdc.g ov/coronavirus/ for the most recent guidelines on Coron avirus testing. Fact Sheet for Healthcare Providers: https://www.fda.gov/media/380065/downloa d Fact Sheet for Patients: https://www.fda.gov/media/440720/downloa d Specimen (Source) Anatomical Collection Method Collection Time Re ceived Time Location / / Volume Laterality [facility] 12/07/2021 8:13 AM (Bronchoalveolar CDT [facility]) Leonid Simon M.D. LAB MICROBIOLOGY - GENERAL O RDERABLES Performing Organization Address City/[facility] Phon e Number [facility] - 200 [place], [place] [address] [facility] [place] [address] [facility] 200 [facility] Cytology Non-SLP TEACHER (12/07/2021 8:13 AM CDT) Component Value Ref Test Analysis Performed At Patholo gist Range Method Time Signature 12/10/2021 DTL 1:31 PM CDT Report Argelia Downs M.D. 12/10/2021 DTL electronically 1:31 PM CDT signed by I verify that I have examined all relevant slides/materials for the specimen(s) and rendered or confirmed the diagnosis. Gross Description Received 12/10/2021 DTL cloudy fluid 1:31 PM CDT in CytoLyt container. Source F. 12/10/2021 DTL Bronchoalveol 1:31 PM CDT ar, lavage Interpretation F. Bronchoalveolar, lavage (ThinPrep): Negative for 12/10/2021 DTL malignancy. 1:31 PM CDT Acute inflammation. Specimen (Source) Anatomical Collection Method Collection Time Re ceived Time Location / / Volume Laterality [facility] 12/07/2021 8:13 AM (Bronchoalveolar CDT [facility]) Narrative This result has an attachment that is no t available. Leonid Simon M.D. LAB SURG PATH ORDERABLES Performing Organization Address City/[facility] Code Phon e Number [facility] - 200 [place], [place] [address] [facility] [place] [address] [facility] 200 [facility] Adenovirus PCR (12/07/2021 8:13 AM CDT) Component Value Ref Range Test Analysis Performed Pathologis t Method Time At Signature Specimen [facility], 12/09/2021 DTL Source Bronchoalveolar 5:59 PM CDT [facility] Adenovirus Negative Negative 12/09/2021 DTL PCR 5:59 PM CDT Comment: ----ADDITIONAL INFORMATION---- This test was developed and its performa nce characteristics determined by [facility] in a manner consistent with CLIA requirements. This test has not been cleared or approved by the U.S. Mer d and Drug Administration. Specimen (Source) Anatomical Collection Method Collection Time Re ceived Time Location / / Volume Laterality [facility] 12/07/2021 8:13 AM (Bronchoalveolar CDT [facility]) Leonid Simon M.D. LAB MICROBIOLOGY - GENERAL O RDERABLES Performing Organization Address City/State/ZIP Code Phon e Number [facility] - [address] [place], [place] [address] [facility] [place] [address] [facility] [address] Cell Count and Differential, BAL (12/07/2021 8:13 AM CDT) Analysis Performed At Patho logist Time Signature Fluid Type BAL DEFAULT 12/07/2021 DHPM 12:29 PM CDT Gross Slight 12/07/2021 DHPM Appearance cloudy 12:29 PM CDT Total Nucleated 126.3 x10(6) 12/07/2021 DHPM Cells 12:29 PM CDT Comment: ----REFERENCE VALUE---- The reference range and other method per formance specifications have not been established for this body fluid. The test result must be integrate d into the clinical context for interpretation. ----ADDITIONAL INFORMATION---- This test has been modified from the man ufacturer's instructions. Its performance characteri stics were determined by [facility] in a manner co nsistent with CLIA requirements. This test has not bee n cleared or approved by the U.S. Food and Drug Admin istration. Volume Recovered 42 mL 12/07/2021 12:29 PM CDT [facility] Alveolar Macrophage 17 % 12/07/2021 12:29 PM CDT [facility] Comment: ----REFERENCE VALUE---- The reference range and other method per formance specifications have not been established for this body fluid. The test result must be integrate d into the clinical context for interpretation. Neutrophils 68 % 12/07/2021 12:29 PM CDT [facility] Comment: ----REFERENCE VALUE---- The reference range and other method per formance specifications have not been established for this body fluid. The test result must be integrate d into the clinical context for interpretation. Eosinophils 2 % 12/07/2021 12:29 PM CDT [facility] Comment: ----REFERENCE VALUE---- The reference range and other method per formance specifications have not been established for this body fluid. The test result must be integrate d into the clinical context for interpretation. Other Cells 13 % 12/07/2021 12:29 PM CDT [facility] Comment: ----REFERENCE VALUE---- The reference range and other method per formance specifications have not been established for this body fluid. The test result must be integrate d into the clinical context for interpretation. Comment Others are lining cells. 12/07/2021 12:2 9 PM CDT [facility] Reviewed by: Tereza 12/07/2021 12:29 PM CDT [facility] Specimen (Source) Anatomical Collection Method Collection Time Re ceived Time Location / / Volume Laterality [facility] 12/07/2021 8:13 AM (Bronchoalveolar CDT [facility]) Leonid Simon M.D. LAB BODY FLUIDS AND STOOLS O GLADYS Performing Organization Address [facility] Phon e Number [facility] - [address] [place], [place] [address] [place] [address] [facility] [address] [facility] Pneumocystis PCR (12/07/2021 8:13 AM CDT) Component Value Ref Range Test Analysis Performed Pathologis t Method Time At Signature Specimen [facility], 12/08/2021 DTL Source Bronchoalveolar 5:16 PM [facility] CDT Pneumocystis Negative Not 12/08/2021 DTL PCR Applicable 5:16 PM CDT Comment: ----ADDITIONAL INFORMATION---- This test was developed and its performa nce characteristics determined by [facility] in a manner consistent with CLIA requirements. This test has not been cleared or approved by the U.S. Mer d and Drug Administration. Specimen (Source) Anatomical Collection Method Collection Time Re ceived Time Location / / Volume Laterality [facility] 12/07/2021 8:13 AM (Bronchoalveolar CDT [facility]) Leonid Simon M.D. LAB MICROBIOLOGY - GENERAL O GLADYS Performing Organization Address City/[facility] Phon e Number [facility] - [address] [place], [place] [address] [facility] [place] [address] [facility] [address] [facility] Influenza A/B And RSV, PCR, Misc (12/07/2021 8:13 AM CDT) Component Value Ref Range Test Analysis Performed Pathologis t Method Time At Signature Specimen [facility], 12/08/2021 DTL Source Bronchoalveolar 8:38 AM [facility] CDT Influenza A, Negative Negative 12/08/2021 DTL PCR 8:38 AM CDT Influenza B, Negative Negative 12/08/2021 DTL PCR 8:38 AM CDT Respiratory Negative Negative 12/08/2021 DTL Syncytial 8:38 AM Virus, PCR CDT Comment: ----ADDITIONAL INFORMATION---- This test has been modified from the man ufacturer's instructions. Its performance characteristics were determi kaye by [facility] in a manner consistent with CLIA requirements. This test has not been cleared or approved by the U.S. Food and Drug Administration . Specimen (Source) Anatomical Collection Method Collection Time Re ceived Time Location / / Volume Laterality [facility] 12/07/2021 8:13 AM (Bronchoalveolar CDT [facility]) Leonid Simon M.D. LAB MICROBIOLOGY - GENERAL O RDERABLES Performing Organization Address City/State/ZIP Code Phon e Number [facility] - 200 [place], [place] [address] [facility] [place] [address] [facility] [address] (ABNORMAL) Bacterial Culture, Aerobic + Susc, Resp (12/07/2021 8:13 AM CDT) Patholo gist Method Time Signature Bacterial With upper 12/09/2021 DTL Culture, respiratory/or 2:39 PM CDT Aerobic, Resp al microbiota (A) Bacterial SERRATIA MARCESCENS 12/09/2021 DTL Culture, 2+ 2:39 PM CDT Aerobic, Resp (A) Comment: Serratia [...] a carbapenem, unless clinically contr aindicated. Specimen (Source) Anatomical Collection Method Collection Time Re ceived Time Location / / Volume Laterality [facility] 12/07/2021 8:13 AM (Bronchoalveolar CDT [facility]) Organism Antibiotic Method Susceptibility Serratia marcescens Ampicillin SUSCEPTIBILITY, >16 mcg/mL: Resistant DAVID (MCG/ML) Serratia marcescens Ampicillin + Sulbactam SUSCEPTIBILITY, >16/8 mcg/mL: Resistant DAVID (MCG/ML) Serratia marcescens Meropenem SUSCEPTIBILITY, <=0.12 mcg/m L: DAVID (MCG/ML) Susceptible Serratia marcescens Ertapenem SUSCEPTIBILITY, <=0.25 mcg/m L: DAVID (MCG/ML) Susceptible Serratia marcescens Piperacillin + Tazobactam SUSCEPTIBILITY, <= 8/4 mcg/mL: DAVID (MCG/ML) Susceptible Serratia marcescens Ciprofloxacin SUSCEPTIBILITY, 1 mcg/mL: Re sistant DAVID (MCG/ML) Serratia marcescens Levofloxacin SUSCEPTIBILITY, 1 mcg/mL: In termediate DAVID (MCG/ML) Serratia marcescens Cefazolin SUSCEPTIBILITY, >16 [...] SUSCEPTIBILITY, 2/38 mcg/mL: Sulfamethoxazole DAVID (MCG/ML) Susceptible Leonid Simon M.D. LAB MICROBIOLOGY - GENERAL O RDERABLES Performing Organization Address City/State/ZIP Code Phon e Number [facility] - [address] [place], [place] [address] [facility] [place] [address] [facility] [address] Nocardia Stain (12/07/2021 8:13 AM CDT) Analysis Performed At Patho logist Time Signature Nocardia Stain Negative. 12/07/2021 DTL 7:01 PM CDT Specimen (Source) Anatomical Collection Method Collection Time Re ceived Time Location / / Volume Laterality [facility] 12/07/2021 8:13 AM (Bronchoalveolar CDT [facility]) Leonid Simon M.D. LAB MICROBIOLOGY - GENERAL O CAMERAKAJAL Performing Organization Address [facility] Phon e Number [facility] - 200 [place], [place] [address] [facility] [place] [address] [facility] 200 [facility] Legionella PCR (12/07/2021 8:13 AM CDT) Component Value Ref Range Test Analysis Performed Pathologis t Method Time At Signature Specimen [facility], 12/07/2021 DTL Source Bronchoalveolar 4:17 PM [facility] CDT Legionella Negative Not 12/07/2021 DTL PCR, Result Applicable 4:17 PM CDT Comment: ----ADDITIONAL INFORMATION---- This test was developed and its performa nce characteristics determined by [facility] in a manner consistent with CLIA requirements. This test has not been cleared or approved by the U.S. Mer d and Drug Administration. Specimen (Source) Anatomical Collection Method Collection Time Re ceived Time Location / / Volume Laterality [facility] 12/07/2021 8:13 AM (Bronchoalveolar CDT [facility]) Leonid Simon M.D. LAB MICROBIOLOGY - GENERAL O GLADYS Performing Organization Address City/[facility] Code Phon e Number [facility] - 200 [place], [place] [address] [facility] [place] [address] [facility] 200 [facility] (ABNORMAL) Aspergillus Antigen, Bronchoalveolar Lavage (12/07/2021 8:13 AM CDT) Patholo gist Method Time Signature Aspergillus Ag, >=3.750 <0.5 12/07/2021 [facility] BAL (A) index 10:25 PM CDT Comment: Elevated galactomannan levels have been reported in cases of other fungal infections, infusion or ingestion of glu conate containing products, and in the presence of certain antibiotics (Not e: piperacillin/tazobactam is no longer considered a common cause of cros s-reactivity for this assay). ----ADDITIONAL INFORMATION---- This is a qualitative test and the resul onel index value is not indicative of disease severity. ??Serial testing is re commended for patients at high risk for invasive aspergillosis. This assay was performed using the FDA-c leared [employer] website Platelia Aspergillus Galactomannan EIA. Specimen (Source) Anatomical Collection Method Collection Time Re ceived Time Location / / Volume Laterality [facility] 12/07/2021 8:13 AM (Bronchoalveolar CDT [facility]) Leonid Simon M.D. LAB MICROBIOLOGY - GENERAL O GLADYS Performing Organization Address City/State/ZIP Code Phon e Number [facility] [address] [place], [place] [address] [facility] [place] [address] Laboratory Medicine and Pathology [address] [place] Mycobacterial Culture (12/07/2021 8:13 AM CDT) Patholo gist Method Time Signature Mycobacterial No growth 01/18/2022 DTL Culture after 42 1:01 PM CDT days of incubation . Specimen (Source) Anatomical Collection Method Collection Time Re ceived Time Location / / Volume Laterality [facility] 12/07/2021 8:13 AM (Bronchoalveolar CDT [facility]) Leonid Simon M.D. LAB MICROBIOLOGY - GENERAL O CAMERAKAJAL Performing Organization Address City/State/ZIP Code Phon e Number [facility] - [address] [place], [place] [address] [place] [address] [facility] [address] Fungal Smear (12/07/2021 8:13 AM CDT) P athologist Signature Fungal Smear Negative. 12/07/2021 DTL 2:59 PM CDT Specimen (Source) Anatomical Collection Method Collection Time Re ceived Time Location / / Volume Laterality [facility] 12/07/2021 8:13 AM (Bronchoalveolar CDT [facility]) Leonid Simon M.D. LAB MICROBIOLOGY - GENERAL O CAMERAKAJAL Performing Organization Address City/State/ZIP Code Phon e Number [facility] - [address] [place], [place] [address] [facility] [place] [address] [facility] [address] Legionella Culture (12/07/2021 8:13 AM CDT) [facility] Method Time Signature Legionella No growth 12/14/2021 DTL Culture after 7 7:56 AM CDT days of incubation. Specimen (Source) Anatomical Collection Method Collection Time Re ceived Time Location / / Volume Laterality [facility] 12/07/2021 8:13 AM (Bronchoalveolar CDT [facility]) Leonid Simon M.D. LAB MICROBIOLOGY - GENERAL O GLADYS Performing Organization Address City/State/ZIP Code Phon e Number [facility] - [address] [place], [place] [address] [facility] [place] [address] [facility] [address] Acid Fast Smear For Mycobacterium (12/07/2021 8:13 AM CDT) [facility] Method Time Signature Acid Fast Smear Negative. 12/07/2021 DTL For Mycobacterium 12:35 PM CDT Specimen (Source) Anatomical Collection Method Collection Time Re ceived Time Location / / Volume Laterality [facility] 12/07/2021 8:13 AM (Bronchoalveolar CDT [facility]) Leonid Simon M.D. LAB MICROBIOLOGY - GENERAL O GLADYS Performing Organization Address City/State/ZIP Code Phon e Number [facility] - [address] [place], [place] [address] [facility] [place] [address] [facility] [address] Gram Stain (12/07/2021 8:13 AM CDT) [facility] Method Time Signature Gram Stain Mixed microbiota 12/07/2021 DTL White blood cells present. 10:36 AM CDT Specimen (Source) Anatomical Collection Method Collection Time Re ceived Time Location / / Volume Laterality [facility] 12/07/2021 8:13 AM (Bronchoalveolar CDT [facility]) Leonid Simon M.D. LAB MICROBIOLOGY - GENERAL O GLADYS Performing Organization Address City/State/ZIP Code Phon e Number [facility] - [address] [place], [place] [address] [facility] [place] [address] [facility] [address] (ABNORMAL) Fungal Culture, Routine (12/07/2021 8:13 AM CDT) [facility] Method Time Signature Fungal SAPROPHYTIC FUNGUS 01/18/2022 DT Culture, Few 9:53 AM CDT Routine (A) Comment: Not further identified. Susceptibility testing is not indicated for all molds. Infectious Diseases consult is required to order mold susceptibility testing. Specimen (Source) Anatomical Collection Method Collection Time Re ceived Time Location / / Volume Laterality [facility] 12/07/2021 8:13 AM (Bronchoalveolar CDT [facility]) Leonid Simon M.D. LAB MICROBIOLOGY - GENERAL O RDERABLES Performing Organization Address City/State/ZIP Code Phon e Number [facility] - [address] [place] [address] [place] [address] [facility] [address] [facility] documented in this encounter Visit Diagnoses Diagnosis Nodules Pulmonary Multiple documented in this encounter Administered Medications Inactive Administered Medications - up to 3 most recent administrations Medication Order MAR Action Action Date Dose Rate Site benzocaine 20 % mouth spray Given 12/07/2021 8:06 AM CDT 4 spray s (HURRICAINE/TOPEX) mouth/throat, Code/trauma/sedation medication, Starting on Fri12/07/21 at 0806 fentaNYL injection (SUBLIMAZE) Given 12/07/2021 8:06 AM CDT 50 mcg intravenous, Code/trauma/sedation medication, Starting on Fri12/07/21 at 0806 lactated ringers New Bag 12/07/2021 7:36 AM CDT 75 mL/hr 75 mL/hr 75 mL/hr, intravenous, Continuous, Starting on Fri12/07/21 at 0715, Pre-Op lidocaine 10 mg/mL (1 %) injection (XYLO DAVID) Given 12/07/2021 8:16 AM CDT 9 mL Code/trauma/sedation medication, Starting on Fri12/07/21 at 0816 midazolam (PF) injection (VERSED) Given 12/07/2021 8:05 AM CDT 2 mg Code/trauma/sedation medication, Starting on Fri12/07/21 at 0805 documented in this encounter Additional Health Concerns Infection Onset Date Last Indicated Resolved Time COVID19 Pending 12/07/2021 12/07/202112/07/2021 1:40 PM CDT Assessment Noted Time PHQ-9 Depression Total Score: 4 11/28/2020 10:17 AM CD T documented as of this encounter Care Teams Tong Hooker Relationship Specialty Start Date End Date Elsewhere, Pcp PCP - General Family Medicine 07/29/17 [facility] - Laboratory Medicine 04/12/20 [place] [id number] documented as of this encounter
--- OUTSIDE RECORDS SUMMARY | 2022-04-13 11:58 | XMS_ITS | Encounter Summary ---
:1955 Author Organization [facility] Address [address] [place] [address] Care Team Providers Name Role Phone Elsewhere, Pcp Primary Care Provider Unavailable Reason for Visit Transplant (Routine) - Closed Specialty Diagnoses / Procedures Referred By Contact Refer red To Contact Transplant Surgery / Diagnoses Transplant Liver (HCC) Medication Therapy Fdc Not 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) Other Secondary Hypertension Other Bipolar Disorder [facility]HCC[facility] Hyperlipidemia Chronic Obstructive Pulmonary Disease Without Exacerbation (HCC) Anemia Screening Examination Prostate Cancer M.D. [address] [place] [address] Referral ID Status Reason Start Date Expiration Date Visits Requ ested Visits Authorized [id number] Closed 07/23/2021 07/23/2022 1 1 Encounter Details Date Type Department Care Team Description 12/10/2021 Office Visit Angélica Ching Trans plant Liver (HCC); [facility] Medication Therapy [employer] Not Anticoa gulant; Transplantation and [address] Screening Examination Skin Cancer; Clinical Regeneration in [place], [place] Ch ronic Failure 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); [place], [place] [address] Other Secondary Hypertension; [address] [facility] [phone] Other Bipolar Disorder (HCC) ; [place] [address] (Work) Hyperlipidemia; [phone] Chronic Obstruc tive Pulmonary Disease Without Exacerbation (HCC); (Fax) Anemia; Screening [place] Prostate Cancer Social [...] More than 4 times per year 12/15/2021 taoism services? 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 - 12/10/2021 3:00 PM CDT SUBJECTIVE CHIEF COMPLAINT/REASON FOR VISIT Annual eval following liver transplantation. HISTORY OF PRESENT ILLNESS Mr. 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 Patient has end-stage renal disease and has been listed for renal transplantation currently placed on hold because of current infections. 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 More recently has progression of micronodularity on CT of the chest and current elevated BAL Aspergillus antigen December [address] of the chest. Patient was seen by Trung Plasencia from Infectious Disease, has also been followed closely by Dr. Simon from Pulmonary. He was recently placed on posaconazole. Because of this, he will require an adjustment in his Prograf. He also continues on Bactrim which he will take after dialysis now to hopefully treat and eradicate the Serratia. Trung from [place] feels he is likely colonized given the length and inability to eradicate. Other ongoing infection issues include a history of CMV colitis, currently off Valcyte, monitored with surveillance, as well as a history of C. difficile infection, resolved. Liver allograft Doing excellent with normal biochemistries and synthetic function. AST 21, ALT 17, alk phos 107, bili 0.3 with normal direct and albumin. Ultrasound shows no significant concerns. Renal failure On dialysis 3 times a week. Followed closely by Transplant Nephrology. He is scheduled to follow up with Dr. Martinez later today. Chronic anemia Managed by Nephrology. Immunosuppression The patient's Prograf level had become undetectable once he started dialysis and wondered whether ornot this is from him taking his Prograf prior to dialysis being dialyzed off. Will send a note to Transplant Pharmacy whether or not he should take his Prograf after. Dr. Wan had increased his Prograffrom 0.5 twice a day up to 1 mg twice a day. His current level is 1.6. His goal is 1.[address] Wan had wanted to get him off CellCept if possible given his current infections, but we would like a little higher Prograf dose. Once he starts his posaconazole, we will need to recheck level closely and likely require further reduction in Prograf. We will make an assessment once a level is obtained and d iscuss whether or not we can slowly taper back on CellCept, but this will need to be done with closemonitoring. The patient continues on 5 mg of prednisone. Patient has no other questions, concerns, or complaints. OBJECTIVE PHYSICAL EXAMINATION General: Pleasant-appearing male. He is in no acute distress. Eyes: Pupils are equal, reactive, nonicteric. ENT: Mouth--no erythema or exudates. Neck: Thyroid negative. Lungs: Increased breath sounds with crackles bilaterally of the lower and upper lungs. Heart: Regular rate and rhythm. Abdomen: Well-healed surgical scar. Small hernia at the vertical incision. No hepatosplenomegaly. Noguarding. Extremities: No edema. Neuropsych: He is oriented x3. Mood and affect normal. ASSESSMENT / PLAN #1 Mr. 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 He has normal biochemistries and synthetic function. Ultrasound of his graft shows a normal hepatic allograft with patent vascular. He has some bidirectional flow in the left portal vein. Other flow looks good. He has multiple stable pancreatic cysts. No ascites or other abnormalities. We will continue to follow laboratory tests per protocol. #2 Immunosuppression We will continue on Prograf 1 mg twice a day. Current level is 1.6. He is also on CellCept 500 mg twice a day and prednisone 5 mg a day. Once he starts his posaconazole, he will let us know because we will need to check a level closely. He may require further reduction in his Prograf. Patient was wondering if he should take his Prograf after dialysis. We sent a note in to Transplant Pharmacy. We willwait for their recommendations and discuss further. Patient will continue with his current immunosuppression doses. Will follow up and make further recommendations. #3 End-stage renal disease, on dialysis Followed closely by Transplant Nephrology. He has been listed for kidney transplant but was placed on hold given the current infections. He will see Dr. Martinez later today. #4 Elevated BAL Aspergillus antigen December 07, 2021, with abnormal CT of the chest imaging Trung will be checking a serum Aspergillus antigen. He will start him on antifungal therapy with posaconazole and wait for BAL fungal culture to finalize. 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 He continues on Bactrim as directed. #6 History of C. difficile infection Last episode May of 2021. Doing well. Asymptomatic. #7 Chronic rhinosinusitis with chronic cough, postnasal drip with recurrent aspiration Patient is status post endoscopic sinus surgery July 26, 2021, with some improvement in symptoms. #8 Medication changes When patient starts posaconazole, he will need to let us know and hold his atorvastatin while on therapy and stop his trazodone. Posaconazole is currently going through clearance by his insurance. We will also need to closely monitor Prograf levels and adjust tacrolimus accordingly. PLAN: Patient will see Dr. Martinez later today. Trung will follow up with the sputum and bacterial, fungal cultures. He should have a repeat CT of the chest in 6-8 weeks. Once he starts posaconazole, we will need a level in 10 days. Will need to obtain a sputum bacterial and fungal culture in 1 month. Patient will call with any questions or concerns. All questions answered. E4. Angélica Granger P.A.-C. CT CT Job ID: [id number] documented in this encounter Plan of Treatment Upcoming Encounters Date Type Specialty Care Team Description 04/24/2022 Appointment Laboratory Medicine Angélica Granger P.A.-C. [address] [place] [phone] 04/25/2022 Office Visit Otorhinolaryngology Dex Matta APRN, C.N.P., M.S.N. [address] [place] [phone] 05/08/2022 Appointment Laboratory Medicine Angélica Granger P.A.-C. [address] [place] [phone] 05/08/2022 Clinical Admitting/Central Communication Scheduling 05/10/2022 Appointment Radiology Jeremie Rose M.D. [address] [place] [phone] 05/10/2022 Comprehensive Visit Orthopedic Surgery Warner Graves M.D. [address] [place] [phone] 05/22/2022 Appointment Laboratory Medicine Angélica Granger P.A.-C. [address] [place] [phone] 06/05/2022 Appointment Laboratory Medicine Angélica Granger P.A.-C. [address] [place] [phone] 06/19/2022 Appointment Laboratory Medicine Angélica Granger P.A.-C. [address] [place] [phone] 07/03/2022 Appointment Laboratory Medicine Angélica Granger P.A.-C. [address] [place] [phone] 07/17/2022 Appointment Laboratory Medicine Angélica Granger P.A.-C. [address] [place] [phone] 07/31/2022 Appointment Laboratory Medicine Angélica Granger P.A.-C. [address] [place] [phone] 08/14/2022 Appointment Laboratory Medicine Angélica Granger P.A.-C. [address] [place] [phone] 08/28/2022 Appointment Laboratory Medicine Angélica Granger P.A.-C. [address] [place] [address] documented as of this encounter Visit Diagnoses Diagnosis Transplant Liver (HCC) Medication Therapy [employer] Not Anticoa gulant Screening Examination Skin Cancer [...] documented as of this encounter Care Teams Orthopaedic General Relationship Specialty Start Date End Date Elsewhere, Pcp PCP - General Family Medicine 07/29/17 [facility] - Laboratory Medicine 04/12/[address] [address] documented as of this encounter
--- OUTSIDE RECORDS SUMMARY | 2022-04-13 11:58 | XMS_ITS | Encounter Summary ---
:1955 Author Organization [facility] Address [address] [place] [id number] Care Team Providers Name Role Phone Elsewhere, Pcp Primary Care Provider Unavailable Reason for Visit Transplant (Routine) - Closed Specialty Diagnoses / Procedures Referred By Contact Refer red To Contact Transplant Surgery / Diagnoses Chronic Kidney Disease Stage 5 GFR Less Than 15 Dialysis Dependent (HCC) Pretransplant Recipient Evaluation Exam Willis Herrera [facility] Bonny.DDemetrius [address] [place] [phone] Referral ID Status Reason Start Date Expiration Date Visits Requ ested Visits Authorized [id number] Closed 09/27/2021 09/27/2022 1 1 Encounter Details Date Type Department Care Team Description 12/05/2021 Clinical Support Mylene Bello M.D. [address] [place] [phone] Chronic Kidney Disease Stage 5 GFR Less Than 15 Dialysis Dependent (HCC); Center for Maritza Hernandes L.I.C.SDemetriusW., M.S.W. 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 How often do you attend shinto or More than 4 times per year 12/15/2021 denominational services? 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 - 12/05/2021 8:30 AM CDT Psychosocial Assessment SUBJECTIVE Mr. Singh returns today for a pre-transplant psychosocial visit. Patient is 66 y.o. year old male from [place], [place] who is currently listed for kidney . Persons present: patient Previous Psychosocial Assessment: Yes, Date: 11/27/20, completed by Kirk Patino. Past Medical and Surgical History: The patient received 2 prior liver transplants in 1998 and 2012. Living Situation: Patient lives alone in a town home. Functional Status/Assistive Devices: Patient is able to ambulate independently and can manage all ADLS and IADLS on their own. He will occasionally use a walker just for resting purposes when he get's out of breath walking long distances. He also utilizes a pillbox as an assistive device. Formal Resources: The patient receives support from his dialysis center. Dialysis: Yes hemodialysis Start Date 06/12 Name Eneida Address/Location [place], [place] Contact number [phone] Schedule Friday/Friday/Friday TRANSPLANT PLAN: Caregiver: Reviewed the roles and responsibilities of the caregiver for the post transplant recoveryperiod. Education included describing in detail the roles of the caregiver; the need for the caregiver to be with the patient on a 24/ basis as well as the need for the caregiver to be able to transport patient to and from medical appointments during post transplant recovery period. Primary caregiver Name: Parris Chung Age: 62 Relationship to patient: family member sister Can they read: yes Can they write: yes Can they drive: yes Do they have a reliable vehicle: yes Does the caregiver have other responsibilities: No, she is retired. Health of the caregiver: Good Secondary caregiver Name: Neymar Singh Age: 71 Relationship to patient: family member cousin Can they read: yes Can they write: yes Can they drive: yes Do they have a reliable vehicle: yes Does the caregiver have other responsibilities: No, he is retired. Health of the caregiver: Good ?? The patient shares he also has various caregivers as indicated below who are willing to assist as well: 1. Roman Dillonson - cousin 2. Selvin Garnica - friend 3. Varun Maloney - cousin ( ) Lodging/Relocation: Patient understands the local lodging requirement and plans to stay at a hotel. He reports no financial concerns with doing so. Employment/Work Status: Working Status/Reason If Not Working: He is retired. 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 Are there any financial concerns/barriers? no Insurance/Medications: Patient???s primary insurance is: MEDICARE A AND B Secondary insurance: [employer] Medication coverage: BCBS Is this a new insurance plan since last social work visit? no If new insurance this journalists and other writers asked patient to investigate medication coverage for post transplant medications to determine affordability. Does patient have benefit for travel/lodging through insurance? no ADVANCE DIRECTIVES Legal Decision Maker: patient Advanced Directives: There is an advance directive in the chart. OBJECTIVE Patient presents as alert and oriented times 3, pleasant and calm, engaging in assessment.His speechrate and volume within normal limits. Verbal skills appear intact. Patient???s mood was stated as euthymic, affect broad.He presents with thought processing intact and thought content appropriate to questions asked. Recent and remote memory intact. Judgement and insight intact. Patient appears to havecapacity to understand his treatment options. PHQ 8 Score: 7 NIDHI 7 Score: 0 AUDIT-C: AUDIT 0; Action:Interpretation: Psychiatric: He has a history of psychiatric hospitalization following his second liver transplant. He was subsequently diagnosed with Bipolar Disorder. His Bipolar Disorder has been managed on medication for several years. Within the past year he denies having any manic or depressed episodes. He admits the pandemic and his health have caused him to lose muscle mass which has lead to him having unmotivated and laziness feelings. He denies having worsening depressed symptoms. Substance Use: No change from original assessment. Within the past year, he hasn't consumed any alcohol, tobacco, or illicit substances. He has a past history of abusing alcohol but with the aide of counseling has been sober since 2013. Compliance: Patient states that they understand the importance of taking immunosuppressive medication and will follow their medical regimen.He currently takes their medication independently. He is utilizing a pillbox to manage his medications. He denies ever missing any dosages of his medications in the last year. He self-reports being compliant with dialysis. He was taken off treatment early for an accident with his line access that lead to them requesting he take a break from dialysis for 4 days. ASSESSMENT / PLAN DISCUSSION The patient presented alone for a transplant psychosocial evaluation. ASSESSMENT Bruce is a 66 year old that presents today as part of a kidney transplant evaluation. The patient has received 2 prior liver transplants. The only significant change that has occurred with the patient was he started dialysis. The patient self-reports they are compliant with medication and dialysis. The patient has a history of Bipolar Disorder with a past psychiatric hospitalization. The Bipolar Disorder has been managed with medication for many years. There are no active mood symptoms that may impede their ability to manage a transplant. The patient has a history of abusing alcohol but has been sober since 2012 with the aide of counseling. The patient is a good candidate for transplant. Patient appears to have a good understanding of the transplant process. Patient was engaged in assessment. Patient remains suitable for transplant from a psychosocial, perspective. It will be important to monitor his mood symptoms throughout the transplant process. Patient was provided this journalists and other writers???s contact information should any questions or concerns arise in the future. PACT: 2 SIPAT: SIPAT Score 22 INTERVENTIONS - Completed updated psychosocial assessment with patient - Provided supportive counseling regarding the unique experience of coping with a chronic, life-threatening illness & transplantation. - Discussed Advance Health Care Directives with patient/family - Discussed and provided psychoeducation on potential for mood changes following transplantation. - Reinforced the importance of careful attention to medical advice. - Reinforced the importance of maintaining primary and back-up caregiving plan. PLAN -The patient will continue through the steps of the evaluation and be presented at a selection conference. -Social Work will remain available to provide further assessment and supportive intervention throughout the evaluation, transplant and recovery process. -Social Work will also be available to assist the patient and family with adjustment issues and community and financial resources. #1 Chronic Kidney Disease Stage 5 GFR Less Than 15 Dialysis Dependent (HCC) #2 Pretransplant Recipient Evaluation Exam Face to face time (for billing purposes) 30 minutes total time 30 minutes spent in counseling with patient Ion Chadwick, M.S.W. documented in this encounter Plan of Treatment Upcoming Encounters Date Type Specialty Care Team Description 04/24/2022 Appointment Laboratory Medicine Angélica Granger P.A.-C. [address] [place] [phone] 04/25/2022 Office Visit Otorhinolaryngology Dex Matta APRN, C.N.P., M.S.N. [address] [place] [phone] 05/08/2022 Appointment Laboratory Medicine Angélica Granger P.A.-C. [address] [place] [phone] 05/08/2022 Clinical Admitting/Central Communication Scheduling 05/10/2022 Appointment Radiology Jeremie Rose M.D. [address] [place] [phone] 05/10/2022 Comprehensive Visit Orthopedic Surgery Warner Graves M.D. [address] [place] [phone] 05/22/2022 Appointment Laboratory Medicine Angélica Granger P.A.-C. [address] [place] [phone] 06/05/2022 Appointment Laboratory Medicine Angélica Granger P.A.-C. [address] [place] [phone] 06/19/2022 Appointment Laboratory Medicine Angélica Granger P.A.-C. [address] [place] [phone] 07/03/2022 Appointment Laboratory Medicine Angélica Granger P.A.-C. [address] [place] [phone] 07/17/2022 Appointment Laboratory Medicine Angélica Granger P.A.-C. [address] [place] [phone] 07/31/2022 Appointment Laboratory Medicine Angélica Granger P.A.-C. [address] [place] [phone] 08/14/2022 Appointment Laboratory Medicine Angélica Granger P.A.-C. [address] [place] [phone] 08/28/2022 Appointment Laboratory Medicine Angélica Granger P.A.-C. [address] [place] [phone] documented as of this encounter Visit Diagnoses Diagnosis Chronic Kidney Disease Stage 5 GFR Less Than 15 Dialysis Dependent (HCC) Pretransplant Recipient Evaluation Exam documented in this encounter Additional Health Concerns Assessment Noted Time PHQ-9 Depression Total Score: 4 11/28/2020 10:17 AM CD T documented as of this encounter Care Teams Supervisor Grounds Relationship Specialty Start Date End Date Elsewhere, Pcp PCP - General Family Medicine 07/29/17 [facility] - Laboratory Medicine 04/12/[address] [address] documented as of this encounter
--- OUTSIDE RECORDS SUMMARY | 2022-04-13 11:58 | XMS_ITS | Encounter Summary ---
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 [address] [place] [address] Referral ID Status Reason Start Date Expiration Date Visits Requ ested Visits Authorized [id number] Closed 10/17/2021 10/17/2022 1 1 Encounter Details Date Type Department Care Team Description 12/05/2021 Hospital Encounter Department of [place], Transpla nt Liver (HCC); Radiology, Kd Hauser M.D., Medicati on Therapy Snf Not Anticoagulant; Building, in [facility] 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 [address] [place] [phone] 05/08/2022 Appointment Laboratory Medicine Angélica Granger P.A.-CDemetrius [address] [place] [phone] 05/08/2022 Clinical Admitting/Central Communication Scheduling 05/10/2022 Appointment Radiology Jeremie Rose M.D. [address] [place] [phone] 05/10/2022 Comprehensive Visit Orthopedic Surgery Warner Graves M.D. [address] [place] [phone] 05/22/2022 Appointment Laboratory Medicine Angélica Granger P.A.-C. [address] [place] [phone] 06/05/2022 Appointment Laboratory Medicine Angélica Granger P.A.-C. [address] [place] [phone] 06/19/2022 Appointment Laboratory Medicine Angélica Granger P.A.-C. [address] [place] [phone] 07/03/2022 Appointment Laboratory Medicine Angélica Granger P.A.-C. [address] [place] [phone] 07/17/2022 Appointment Laboratory Medicine Angélica Granger P.A.-C. [address] [place] [phone] 07/31/2022 Appointment Laboratory Medicine Angélica Granger P.A.-C. [address] [place] [phone] 08/14/2022 Appointment Laboratory Medicine Angélica Granger P.A.-C. [address] [place] [phone] 08/28/2022 Appointment Laboratory Medicine Angélica Granger P.A.-C. [address] [place] [phone] documented as of this encounter Procedures Procedure Name Priority Date/Time Associated Comments Diagnosis CT CHEST WITHOUT RAD - Routine 12/05/2021 12:48 Transplant Liver Re sults for this IV CONTRAST (most inpatients PM CDT (HCC) procedure are in and all Medication the results outpatients) Therapy Painter Apprentice section. Not Anticoagulan t Shortness Of Breath documented in this encounter Results CT Chest without IV Contrast (12/05/2021 12:48 PM CDT) Anatomical Region Laterality Modality Chest, Thoracic RST LOS, Thoracic ARZ N/A Co mputed Tomography, Computed LOS, Thoracic FLA LOS Tomography Specimen (Source) Anatomical Collection Method Collection Time Re ceived Time Location / / Volume Laterality 12/05/2021 1:06 PM CDT Impressions 12/05/2021 2:56 PM CDT Mild worsening micronodular opacities in the lingula and bilateral lower lobes with similar opacities in the basilar right middle lo be. Similar bronchial wall thickening. Findings are most consistent with an infectious/inflammato ry process. Narrative 12/05/2021 2:56 PM CDT EXAM: CT CHEST WITHOUT IV CONTRAST COMPARISON: Multiple CTs of the chest, m ost recently 10/12/2021, CT abdomen and pelvis 11/27/2020. FINDINGS: Since 10/12/2021, worsening micronodular opacities in the lingula and bilateral lower lobes, with similar opacities in the right middle lo be. Calcified granuloma in the right lower l obe. Moderate bilateral bronchial wall thickening, greatest at the lung bases. No pleural effusion o r pneumothorax. Linear scarring in the right middle lobe. No lymphadenopathy by size criteria. Ath erosclerotic vascular calcifications, including coronary artery calcifications. Aneurysmal dilata tion of the ascending aorta measuring 41 mm in double oblique dimension, unchanged since 10/12. Interval removal of right IJ hemodialysis catheter. Postoperative changes liver transplant. Cholecystectomy. Tiny hiatal hernia. Bilateral renal cysts. Several small hyperdense right renal cys ts, compatible with hemorrhagic cysts or proteinaceous debris. An 11 mm cyst in the interpolar region of the left kidney contains a thin internal septation (series 6, image 173), unchanged since 0 11/27/2020. Splenomegaly measuring up to 13.6 cm in AP dimension, relatively unchanged since th e prior exam allowing for minor differences in measurement between studies. Splenule. Pancreatic pa renchymal atrophy. Left renal artery stent. Multiple pancreatic cysts, similar in size and ap pearance to 11/27/2020. Healed bilateral rib fractures. Multilev el mild degenerative changes of the spine. Chronic fracture deformity right clavicle. Procedure Note Santana Kurtz M.D., Ph.D. - 12/05/2021 EXAM: CT CHEST WITHOUT IV CONTRAST COMPARISON: Multiple CTs of the chest, m ost recently 10/12/2021, CT abdomen and pelvis 11/27/2020. FINDINGS: Since 10/12/2021, worsening micronodular opacities in the lingula and bilateral lower lobes, with similar opacities in the right middle lo be. Calcified granuloma in the right lower l obe. Moderate bilateral bronchial wall thickening, greatest at the lung bases. No pleural effusion o r pneumothorax. Linear scarring in the right middle lobe. No lymphadenopathy by size criteria. Ath erosclerotic vascular calcifications, including coronary artery calcifications. Aneurysmal dilata tion of the ascending aorta measuring 41 mm in double oblique dimension, unchanged since 10/12. Interval removal of right IJ hemodialysis catheter. Postoperative changes liver transplant. Cholecystectomy. Tiny hiatal hernia. Bilateral renal cysts. Several small hyperdense right renal cys ts, compatible with hemorrhagic cysts or proteinaceous debris. An 11 mm cyst in the interpolar region of the left kidney contains a thin internal septation (series 6, image 173), unchanged since 0 11/27/2020. Splenomegaly measuring up to 13.6 cm in AP dimension, relatively unchanged since th e prior exam allowing for minor differences in measurement between studies. Splenule. Pancreatic pa renchymal atrophy. Left renal artery stent. Multiple pancreatic cysts, similar in size and ap pearance to 11/27/2020. Healed bilateral rib fractures. Multilev el mild degenerative changes of the spine. Chronic fracture deformity right clavicle. IMPRESSION: Mild worsening micronodular opacities in the lingula and bilateral lower lobes with similar opacities in the basilar right middle lo be. Similar bronchial wall thickening. Findings are most consistent with an infectious/inflammato ry process. Yusuf Umanzor M.D., M.P.H. 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
--- OUTSIDE RECORDS SUMMARY | 2022-04-13 11:59 | XMS_ITS | Encounter Summary ---
:1955 Author Organization [facility] Address [address] [place] [address] Care Team Providers Name Role Phone Elsewhere, Pcp Primary Care Provider Unavailable Encounter Details Date Type Department Care Team Description 11/28/2021 Hospital Encounter Department of Trung Plasencia Liver (HCC); Laboratory Medicine Edmundo Stern, Medicati on Therapy Usp Not Anticoagulant; in Jimmie Blake M.S. 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 Medication Therapy Gastroenterology Professor Not Anticoagulant pen needle, diabetic 1 Injection [...] Laboratory Medicine Angélica Granger P.A.-C. [address] [place] [phone] 04/25/2022 Office Visit Otorhinolaryngology Dex Matta APRN, C.N.P., M.S.N. [address] [place] [phone] 05/08/2022 Appointment Laboratory Medicine Angélica Granger P.A.-C. [address] [place] [phone] 05/08/2022 Clinical Admitting/Central Communication Scheduling 05/10/2022 Appointment Radiology Jeremie Rose M.D. [address] [place] [phone] 05/10/2022 Comprehensive Visit Orthopedic Surgery Warner Graves M.D. [address] [place] [phone] 05/22/2022 Appointment Laboratory Medicine Angélica Granger P.A.-C. [address] [place] [phone] 06/05/2022 Appointment Laboratory Medicine Angélica Granger P.A.-C. [address] [place] [phone] 06/19/2022 Appointment Laboratory Medicine Angélica Granger P.A.-C. [address] [place] [phone] 07/03/2022 Appointment Laboratory Medicine Angélica Granger P.A.-C. [address] [place] [phone] 07/17/2022 Appointment Laboratory Medicine Angélica Granger P.A.-C. [address] [place] [phone] 07/31/2022 Appointment Laboratory Medicine Angélica Granger P.A.-C. [address] [place] [phone] 08/14/2022 Appointment Laboratory Medicine Angélica Granger P.A.-C. [address] [place] [phone] 08/28/2022 Appointment Laboratory Medicine Anéglica Granger P.A.-C. [address] [place] [phone] documented as of this encounter Procedures Procedure Name Priority Date/Time Associated Diagnosis Comme nts CMV DNA DETECT/QUANT, Routine 11/28/2021 8:19 Transplant Liver (HCC) Results for this P AM CDT Medication Therapy procedure are in Usp Not the results Anticoagulant section. Colitis Cytomegalovirus (HCC) TACROLIMUS LEVEL, B Routine 11/28/2021 8:19 Transplant L iver (HCC) Results for this AM CDT Medication Therapy procedure are in Usp Not the results Anticoagulant section. Colitis Cytomegalovirus (HCC) CBC WITHOUT Routine 11/28/2021 8:19 Transplant Liver (HCC) Results for this DIFFERENTIAL, B AM CDT Medication Therapy proced ure are in Usp Not the results Anticoagulant section. Colitis Cytomegalovirus (HCC) GLUCOSE, FASTING, S/P Routine 11/28/2021 8:19 Transplant Liver (HCC) Results for this AM CDT Medication Therapy procedure are in Gastroenterology Professor Not the results Anticoagulant section. Colitis Cytomegalovirus (HCC) COMPREHENSIVE Routine 11/28/2021 8:19 Transplant Liver (HCC) Results for this METABOLIC PANEL, S/P AM CDT Medication Therapy p rocedure are in Usp Not the results Anticoagulant section. Colitis Cytomegalovirus (HCC) documented in this encounter Results (ABNORMAL) Tacrolimus, B (11/28/2021 8:19 AM CDT) P athologist Signature Tacrolimus, B 2.0 (L) 5.0-15.0 11/29/2021 [facility] (Trough) 10:36 AM CDT ng/mL Comment: ----ADDITIONAL INFORMATION---- Target [...] its performa nce characteristics determined by [facility] in a manner consistent with CLIA requirements. This test has not been cleared or approved by the U.S. Mer d and Drug Administration. Specimen Anatomical Collection Method Collection Time Receive d Time (Source) Location / / Volume Laterality Blood (Blood, 11/28/2021 8:19 AM 11/30/19 22 7:23 Venous) CDT AM CDT Trung Plasencia P.A.-C., M.S. LAB BLOOD NON ADD-ON Performing Organization Address City/State/ZIP Code Phon e Number [facility] [address] [place] [address] SUPPORT CENTER [facility] [place] [address] Laboratory Medicine and Pathology [address] [place] CMV DNA Detect / Quant, Plasma (11/28/2021 8:19 AM CDT) Patholo gist Method Time Signature CMV DNA Undetected Undetected 11/29/2021 [facility] Detect/Quant, IU/mL 11:56 AM P CDT Comment: Result in log IU/mL is Undetected. ----ADDITIONAL INFORMATION---- The quantification range of this assay i s 35 to 10,000,000 IU/mL (1.54 log to 7.00 log IU/mL). Testing was performed u sing the tika CMV test ([employer] with the tika [id number] System. Specimen Anatomical Collection Method Collection Time Receive d Time (Source) Location / / Volume Laterality Blood (Blood, 11/28/2021 8:19 AM 11/30/19 22 7:10 Venous) CDT AM CDT Trung Plasencia P.A.-C., M.S. LAB MICROBIOLOGY - BLOOD O RDERABLES Performing Organization Address City/State/ZIP Code Phon e Number [facility] [address] [place], [place] [address] [place] [address] [facility] [place] [address] Laboratory Medicine and Pathology [address] [place] (ABNORMAL) Glucose, Fasting (11/28/2021 8:19 AM CDT) P athologist Signature Glucose, P 109 (H) 70 - 100 11/28/2021 [facility] mg/dL 8:47 AM CDT Last Intake 12 hr 11/28/2021 [facility] 8:19 AM CDT Specimen Anatomical Collection Method Collection Time Receive d Time (Source) Location / / Volume Laterality Blood (Blood, 11/28/2021 8:19 AM 11/29/19 22 8:21 Venous) CDT AM CDT Trung Plasencia P.A.-C., M.S. LAB BLOOD NON ADD-ON Performing Organization Address City/[facility] Code Phon e Number [address] [address] [place] [address] (ABNORMAL) Comprehensive Metabolic Panel (11/28/2021 8:19 AM CDT) Analysis Performed At Patho logist Time Signature Potassium, P 4.2 3.6 - 5.2 11/28/2021 [facility] mmol/L 8:51 AM CDT Sodium, P 134 (L) 135 - 145 11/28/2021 [facility] mmol/L 8:51 AM CDT Chloride, P 99 98 - 107 11/28/2021 [facility] mmol/L 8:51 AM CDT Bicarbonate, P 23 22 - 29 11/28/2021 [facility] mmol/L 8:51 AM CDT Anion Gap, P 12 7 - 15 11/28/2021 [facility] 8:51 AM CDT BUN (Blood Urea 37 (H) 8 - 24 11/28/2021 [facility] Nitrogen), P mg/dL 8:51 AM CDT Creatinine 3.50 (H) 0.74 - 11/28/2021 [facility] 1.35 mg/dL 8:51 AM CDT eGFR-Black/Afri 20 (L) >=60 11/28/2021 [facility] can Mexican mL/min/BSA 8:51 AM CDT Comment: ----ADDITIONAL INFORMATION---- Estimated GFR calculated using the 2009 CKD_EPI creatinine equation. eGFR Non-Black/ 17 (L) >=60 mL/min/BSA 11/28/2021 8:51 AM CDT [facility] [place] Comment: ----ADDITIONAL INFORMATION---- Estimated GFR calculated using the 2009 CKD_EPI creatinine equation. Calcium, Total, P 8.8 8.8 - 10.2 mg/dL 11/28/2021 8:51 AM CDT [facility] Glucose, P CANCELED mg/dL 11/28/2021 8:22 AM CDT [facility] Comment: Duplicate test request. Result canceled by the ancillary. Protein, Total, P 6.0 (L) 6.3 - 7.9 g/dL 11/28/2021 8:51 A M CDT [facility] Albumin, P 4.0 3.5 - 5.0 g/dL 11/28/2021 8:51 AM CDT C NFL Aspartate Aminotransferase 18 8 - 48 U/L 11/28/2021 8 :51 AM CDT [facility] (AST), P Alkaline Phosphatase, P 102 40 - 129 U/L 11/28/2021 8: 51 AM CDT [facility] Alanine Aminotransferase 18 7 - 55 U/L 11/28/2021 8:5 1 AM CDT [facility] (ALT), P Bilirubin, Total, P 0.2 <=1.2 mg/dL 11/28/2021 8:51 AM CDT [facility] Specimen Anatomical Collection Method Collection Time Receive d Time (Source) Location / / Volume Laterality Blood (Blood, 11/28/2021 8:19 AM 11/29/19 8:21 Venous) CDT AM CDT Trung Plasencia P.A.-C., M.S. LAB BLOOD ADD-ON Performing Organization Address City/State/[facility] Code Phon e Number [facility]- [address] [place], [place] [id number] [place] [address] [address] (ABNORMAL) CBC without Differential (11/28/2021 8:19 AM CDT) [facility] gist Method Time Signature Hemoglobin 9.5 (L) 13.2 - 11/28/2021 [facility] 16.6 g/dL 8:27 AM CDT Hematocrit 29.7 (L) 38.3 - 11/28/2021 [facility] 48.6 % 8:27 AM CDT Erythrocytes 2.84 (L) 4.35 - 11/28/2021 [facility] 5.65 8:27 AM CDT x10(12)/L MCV 104.6 (H) 78.2 - 11/28/2021 [facility] 97.9 fL 8:27 AM CDT RBC Distrib Width 14.3 11.8 - 11/28/2021 [facility] 14.5 % 8:27 AM CDT Platelet Count 294 135 - 317 11/28/2021 [facility] x10(9)/L 8:27 AM CDT Leukocytes 5.6 3.4 - 9.6 11/28/2021 [facility] x10(9)/L 8:27 AM CDT Specimen Anatomical Collection Method Collection Time Receive d Time (Source) Location / / Volume Laterality Blood (Blood, 11/28/2021 8:19 AM 11/29/19 8:21 Venous) CDT AM CDT Trung Plasencia P.A.-C., M.S. LAB BLOOD ADD-ON Performing Organization Address City/State/ZIP Code Phon e Number [facility]- [address] [place] [id number] [place] [address] System [address] documented in this encounter Visit Diagnoses Diagnosis Transplant Liver (HCC) Medication Therapy Usp Not Anticoa gulant Colitis Cytomegalovirus (HCC) documented in this encounter Additional Health Concerns Assessment Noted Time PHQ-9 Depression Total Score: 4 11/28/2020 10:17 AM CD T documented as of this encounter Care Teams Materials Planning Analyst Relationship Specialty Start Date End Date Elsewhere, Pcp PCP - General Family Medicine 07/29/17 [facility] - Laboratory Medicine 04/12/[address] [address] documented as of this encounter
--- OUTSIDE RECORDS SUMMARY | 2022-04-13 11:59 | XMS_ITS | Encounter Summary ---
:1955 Author Organization [facility] Address [address] [place] [address] Care Team Providers Name Role Phone Elsewhere, Pcp Primary Care Provider Unavailable Reason for Visit Reason Comments Med Refill Encounter Details Date Type Department Care Team Description 11/26/2021 [facility] Transplantation and Clinical [address] [place] [address] in [facility] [phone] [place] [address] [place], [place] [phone] Social History Tobacco Use Types Packs/Day Years [...] More than 4 times per year 12/15/2021 zoroastrianism services? 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 [address] [place] [phone] 04/25/2022 Office Visit Otorhinolaryngology Dex Matta APRN, C.N.P., M.S.N. [address] [place] [phone] 05/08/2022 Appointment Laboratory Medicine Angélica Granger, P.A.-C. [address] [place] [phone] 05/08/2022 Clinical Admitting/Central Communication Scheduling 05/10/2022 Appointment Radiology Jeremie Rose M.D. [address] [place] [phone] 05/10/2022 Comprehensive Visit Orthopedic Surgery Warner Graves M.D. [address] [place] [phone] 05/22/2022 Appointment Laboratory Medicine GunAngélica wilcox P.A.-C. [address] [place] [phone] 06/05/2022 Appointment Laboratory Medicine Angélica Granger P.A.-C. [address] [place] [phone] 06/19/2022 Appointment Laboratory Medicine Angélica Granger P.A.-C. [address] [place] [phone] 07/03/2022 Appointment Laboratory Medicine Angélica Granger P.A.-C. [address] [place] [phone] 07/17/2022 Appointment Laboratory Angélica Royal P.A.-C. [address] [place] [phone] 07/31/2022 Appointment Laboratory Medicine Angélica Granger P.A.-C. [address] [place] [phone] 08/14/2022 Appointment Laboratory Angélica Royal P.A.-C. [address] [place] [phone] 08/28/2022 Appointment Laboratory Angélica Royal P.A.-C. [address] [place] [phone] documented as of this encounter Visit Diagnoses Diagnosis Transplant Liver (HCC) documented in this encounter Additional Health Concerns Assessment Noted Time PHQ-9 Depression Total Score: 4 11/28/2020 10:17 AM CD T documented as of this encounter Care Teams Transportation Services Representative Relationship Specialty Start Date End Date Elsewhere, Pcp PCP - General Family Medicine 07/29/17 [facility] - Laboratory Medicine 04/12/20 [place] [address] documented as of this encounter
--- OUTSIDE RECORDS SUMMARY | 2022-04-13 11:59 | XMS_ITS | Encounter Summary ---
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 [facility] Hyperlipidemia Chronic Obstructive Pulmonary Disease Without Exacerbation (HCC) Anemia Screening Examination Prostate Cancer [address] [place] [address] Referral ID Status Reason Start Date Expiration Date Visits Requ ested Visits Authorized [id number] Closed 07/23/2021 07/23/2022 1 1 Reason for Visit Outpatient (Routine) - Closed Specialty Diagnoses / Procedures Referred By Contact Refer red To Contact Diagnoses Transplant Liver (HCC) Medication Therapy Center Lead Consultant Not 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 [facility] Hyperlipidemia Chronic Obstructive Pulmonary Disease Without Exacerbation (HCC) Anemia Screening Examination Prostate Cancer [address] [place] [address] Referral ID Status Reason Start Date Expiration Date Visits Requ ested Visits Authorized [id number] Closed 07/23/2021 07/23/2022 1 1 Encounter Details Date Type Department Care Team Description 12/05/2021 Hospital Encounter Department of Otoniel Linares Liver (HCC); Radiology, Kd Tubbs M.D. Medication Therapy Penitentiary Not Anticoa gulant; Building, in 200 Screening Examination Skin Cancer; [place], [place] Chronic Failur e 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); [place] [phone] Other Secondary Hypertension; 200 Other Bipolar Disorder (HCC) ; [place], [place] (Work) Hyperlipidemia; [phone] Chronic Obstructive Pulmonar y Disease Without Exacerbation [...] at Date Recorded Male 05/16/2020 4:27 PM KETTLE HAND documented as of this encounter Medications at [...] or open Cytomegalovirus (HCC), capsules. Medication Therapy Center Lead Consultant Not Anticoagulant pen needle, diabetic 1 Injection [...] Laboratory Medicine Angélica Granger P.A.-C. [address] [place] [phone] 04/25/2022 Office Visit Otorhinolaryngology Dex Matta, RAMONA, C.N.P., M.S.N. [address] [place] [phone] 05/08/2022 Appointment Laboratory Medicine Angélica Granger P.A.-C. [address] [place] [phone] 05/08/2022 Clinical Admitting/Central Communication Scheduling 05/10/2022 Appointment Radiology Jeremie Rose M.D. [address] [place] [phone] 05/10/2022 Comprehensive Visit Orthopedic Surgery Warner Graves M.D. [address] [place] [phone] 05/22/2022 Appointment Laboratory Medicine Angélica Granger P.A.-C. [address] [place] [phone] 06/05/2022 Appointment Laboratory Medicine Angélica Granger P.A.-C. [address] [place] [phone] 06/19/2022 Appointment Laboratory Medicine Angélica Granger P.A.-C. [address] [place] [phone] 07/03/2022 Appointment Laboratory Medicine Angélica Granger P.A.-C. [address] [place] [phone] 07/17/2022 Appointment Laboratory Medicine Angélica Granger P.A.-C. [address] [place] [phone] 07/31/2022 Appointment Laboratory Medicine Angélica Granger P.A.-C. [address] [place] [phone] 08/14/2022 Appointment Laboratory Medicine Angélica Granger P.A.-C. [address] [place] [phone] 08/28/2022 Appointment Laboratory Medicine Angélica Granger P.A.-C. [address] [place] [phone] documented as of this encounter Procedures Procedure Name Priority Date/Time Associated Comments Diagnosis US LIVER RAD - Routine 12/05/2021 10:33 Transplant Liver Result s for this TRANSPLANT (most inpatients AM CDT (HCC) procedure are in and all Medication Therapy the resul ts outpatients) Center Lead Consultant Not section. 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 Normal hepatic allograft and patent vasculature. Since prior, there is intermittent bidirectional flow in the left portal vein. 2. Multiple similar pancreatic cysts, po ssibly IPMN. 3. Chronic parenchymal renal disease. Narrative 12/05/2021 11:13 AM CDT EXAM: US LIVER TRANSPLANT Exam performed with color and spectral D oppler analysis. COMPARISON: Ultrasound 11/27/2020, CT ab domen and pelvis 11/27/2020. FINDINGS: Transplant date: 06/13/2013. Hepatic allograft: Normal. Gallbladder: Absent. Bile ducts: Not dilated. Doppler Splenic and hepatic veins are pa tent with antegrade flow. Dilated, patent main portal vein, similar to prior. On today's exam there is bidirectional flow within the left portal vein, depending on patient positioning, which was not pr eviously demonstrated. The main hepatic artery is patent with antegrade flow. MHA peak systolic velocity: 66 cm/s MHA RI: 0.79 RHA RI: 0.79 LHA RI: 0.80 Resistive indices: Borderline/upper limi ts of normal. IVC: Normal where seen. Pancreas: Several pancreatic cysts, larg est visualized measures 1.7 cm near the pancreatic tail/splenic hilum. Right kidney: Length: 10.1 cm. Mildly ec hogenic, thinned cortex. No hydronephrosis. Cyst. Left kidney: Length: 8.5 cm. Mildly echo genic, thinned cortex. No hydronephrosis. Cyst. Spleen: Splenule. ??Length: 12.1 cm. Aorta: Mildly ectatic. Other: No ascites. Procedure Note Syeda Clarke M.D. - 12/05/2021Formatt ing of this note might be different from the original. EXAM: US LIVER TRANSPLANT Exam performed with color and spectral D oppler analysis. COMPARISON: Ultrasound 11/27/2020, CT ab domen and pelvis 11/27/2020. FINDINGS: Transplant date: 06/13/2013. Hepatic allograft: Normal. Gallbladder: Absent. Bile ducts: Not dilated. Doppler Splenic and hepatic veins are pa tent with antegrade flow. Dilated, patent main portal vein, similar to prior. On today's exam there is bidirectional flow within the left portal vein, depending on patient positioning, which was not pr eviously demonstrated. The main hepatic artery is patent with antegrade flow. MHA peak systolic velocity: 66 cm/s MHA RI: 0.79 RHA RI: 0.79 LHA RI: 0.80 Resistive indices: Borderline/upper limi ts of normal. IVC: Normal where seen. Pancreas: Several pancreatic cysts, larg est visualized measures 1.7 cm near the pancreatic tail/splenic hilum. Right kidney: Length: 10.1 cm. Mildly ec hogenic, thinned cortex. No hydronephrosis. Cyst. Left kidney: Length: 8.5 cm. Mildly echo genic, thinned cortex. No hydronephrosis. Cyst. Spleen: Splenule. Length: 12.1 cm. Aorta: Mildly ectatic. Other: No ascites. IMPRESSION: 1. Normal hepatic allograft and patent v asculature. Since prior, there is intermittent bidirectional flow in the left portal vein. 2. Multiple similar pancreatic cysts, po ssibly IPMN. 3. Chronic parenchymal renal disease. Otoniel HEREDIA US PROCEDURES documented in this encounter Visit Diagnoses Diagnosis Transplant Liver (HCC) Medication Therapy Center Lead Consultant Not Anticoa gulant Screening Examination Skin Cancer [...] documented as of this encounter Care Teams Television Station Manager Relationship Specialty Start Date End Date Elsewhere, Pcp PCP - General Family Medicine 07/29/17 [facility] - Laboratory Medicine 04/12/[address] [address] documented as of this encounter
--- OUTSIDE RECORDS SUMMARY | 2022-04-13 11:59 | XMS_ITS | Encounter Summary ---
:1955 Author Organization [facility] Address [address] [place] [phone] Care Team Providers Name Role Phone Elsewhere, Pcp Primary Care Provider Unavailable Encounter Details Date Type Department Care Team Description 12/03/2021 Hospital Encounter Department of Otoniel Linares Liver (HCC); Laboratory Medicine Sada Tubbs Medication Therapy [place] Assembler Not Anticoa gulant; in [address] Screening Examination Skin Cancer; [place], [place] Chronic Failure Renal End St age Renal Disease Dialysis Dependent (HCC); [address] [place] [phone] Other Secondary Hypertension; BL[address] [phone] Other Bipolar Disorder (HCC) ; [place], [place] (Work) Hyperlipidemia; [phone] Chronic Obstructive Pulmonar y Disease Without Exacerbation (HCC); Anemia; Screening [facility] Prostate Cancer Social History Tobacco Use Types [...] at Date Recorded Male 05/16/2020 4:27 PM 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 Medication Therapy [place] Assembler Not Anticoagulant pen needle, diabetic 1 Injection [...] Take 3 tablets (30 60 tablet 1 04/27 /2022 01/31/2022 mg tablet mg total) by mouth daily. [...] Laboratory Medicine Angélica Granger P.A.-C. [address] [place] [phone] 04/25/2022 Office Visit Otorhinolaryngology Dex Matta APRN, C.N.P., M.S.N. [address] [place] [phone] 05/08/2022 Appointment Laboratory Medicine Angélica Granger P.A.-C. [address] [place] [phone] 05/08/2022 Clinical Admitting/Central Communication Scheduling 05/10/2022 Appointment Radiology Jeremie Rose M.D. [address] [place] [phone] 05/10/2022 Comprehensive Visit Orthopedic Surgery Warner Graves M.D. [address] [place] [phone] 05/22/2022 Appointment Laboratory Medicine Angélica Granger P.A.-CDemetrius [address] [place] [phone] 06/05/2022 Appointment Laboratory Medicine Angélica Granger P.A.-C. [address] [place] [phone] 06/19/2022 Appointment Laboratory Medicine Angélica Granger P.A.-C. [address] [place] [phone] 07/03/2022 Appointment Laboratory Medicine Angélica Granger P.A.-C. [address] [place] [phone] 07/17/2022 Appointment Laboratory Medicine Angélica Granger P.A.-C. [address] [place] [phone] 07/31/2022 Appointment Laboratory Medicine Angélica Granger P.A.-C. [address] [place] [phone] 08/14/2022 Appointment Laboratory Medicine Angélica Granger P.A.-C. [address] [place] [phone] 08/28/2022 Appointment Laboratory Medicine Angélica Granger P.A.-C. [address] [place] [phone] documented as of this encounter Procedures Procedure Name Priority Date/Time Associated Diagnosis Comme nts ALBUMIN, RANDOM, U Routine 12/03/2021 8:23 AM Transplant Liver Results for this CDT (HCC) procedure are in Medication Therapy [facility] Not section. 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) Other Secondary Hypertension Other Bipolar Disorder (HCC) Hyperlipidemia Chronic Obstructive Pulmonary Disease Without Exacerbation (HCC) Anemia Screening Examination Prostate Cancer documented in this encounter Results (ABNORMAL) Protein/Creatinine Ratio, Random, Urine (12/03/2021 8:23 AM CDT) P athologist Signature Protein, 19 mg/dL 12/03/2021 RDWG Total, Random, 2:08 PM CDT U Creatinine, 39 16 - 326 12/03/2021 CNFL Random, U mg/dL 9:17 AM CDT Protein/Creati 0.49 (H) <0.18 12/03/2021 RDW[facility] nine Ratio mg/mg 2:08 PM CDT Specimen Anatomical Collection Method Collection Time Receive d Time (Source) Location / / Volume Laterality Urine (Urine, 12/03/2021 8:23 AM 12/04/19 9:17 Midstream) CDT AM CDT Otoniel Linares M.D. LAB URINE ORDERABLES Performing Organization Address City/State/ZIP Code Phon e Number [facility]- [address] [place] [phone] [place] [address] System in [address] [address] System in [place] [address] [address] (ABNORMAL) Albumin, Random, Urine (12/03/2021 8:23 AM CDT) [facility] Method Time Signature Microalbumin 92.5 mg/L 12/03/2021 CNFL 9:17 AM CDT Creatinine 39 mg/dL 12/03/2021 CNFL 9:17 AM CDT Albumin/Creatinin 237 (H) <17 mg/g 12/03/2021 CNFL e Ratio 9:17 AM CDT Specimen Anatomical Collection Method Collection Time Receive d Time (Source) Location / / Volume Laterality Urine (Urine, 12/03/2021 8:23 AM 12/04/19 8:23 Midstream) CDT AM CDT Otoniel Linares M.D. LAB URINE ORDERABLES Performing Organization Address City/State/[facility] Phon e Number [address] [address] [place] [address] [address] (ABNORMAL) Urinalysis with Microscopic: Urine, Midstream (12/03/2021 8:23 AM CDT) Analysis Performed At Patho logist Time Signature Source Urine, Urine, 12/03/2021 CNFL Midstream 8:24 AM CDT Clarity Clear Clear 12/03/2021 CNFL 9:07 AM CDT Color Yellow 12/03/2021 CNFL 9:07 AM CDT Comment: ----REFERENCE VALUE---- Colorless Yellow Bhakti Blood Trace (A) Negative 12/03/2021 9:07 AM CDT CNFL Nitrite Negative Negative 12/03/2021 9:07 AM CDT CNFL Leukocyte Esterase Negative Negative 12/03/2021 9:07 AM CD T CNFL Protein Trace mg/dL 12/03/2021 9:07 AM CDT CNFL Comment: ----REFERENCE VALUE---- Negative Trace Glucose Negative Negative mg/dL 12/03/2021 9:07 AM CDT CN FL Ketones, QI(U) Negative Negative mg/dL 12/03/2021 9:07 AM C DT CNFL Bilirubin Negative Negative 12/03/2021 9:07 AM CDT CNFL pH 6.0 5.0 - 8.0 12/03/2021 9:07 AM CDT CNFL Specific [place] 1.010 1.001 - 1.035 12/03/2021 9:07 AM CDT CNFL Urobilinogen 0.2 0.2 - 1.0 mg/dL 12/03/2021 9:07 AM CD T CNFL White Blood Cells None Seen /hpf 12/03/2021 9:07 AM CDT CNFL Comment: ----REFERENCE VALUE---- Males: 0-3 Females: 0-10 Unknown: 0-10 Red Blood Cells Occ-2 0 - 2 /hpf 12/03/2021 9:07 AM CDT CNFL Dysmorphic Red Blood Cells <=25 <=25 % 12/03/2021 9: 07 AM CDT CNFL Specimen Anatomical Collection Method Collection Time Receive d Time (Source) Location / / Volume Laterality Urine (Urine, 12/03/2021 8:23 AM 12/04/19 8:23 Midstream) CDT AM CDT Otoniel Linares M.D. LAB URINE ORDERABLES Performing Organization Address City/State/[facility] Code Phon e Number [phone] [place] [address] [place] [address] System [address] Urinalysis with Microscopic: Urine, Voided (12/03/2021 8:23 AM CDT) athologist Signature Source CANCELED 12/03/2021 CNFL 8:50 AM CDT Comment: REVISED RESULTS ----PREVIOUSLY REPORTED ---- Urine, Urine, Voided, Flagged as: Normal (Reported 12/03/2021 08:24) Clarity CANCELED 12/03/2021 8:50 AM CDT CNFL Comment: Result canceled by the ancillar y. Color CANCELED 12/03/2021 8:50 AM CDT CNFL Comment: Result canceled by the ancillar y. Blood CANCELED 12/03/2021 8:50 AM CDT CNFL Comment: Result canceled by the ancillar y. Nitrite CANCELED 12/03/2021 8:50 AM CDT CNFL Comment: Result canceled by the ancillar y. Leukocyte Esterase CANCELED 12/03/2021 8:50 AM CD T CNFL Comment: Result canceled by the ancillar y. Protein CANCELED 12/03/2021 8:50 AM CDT CNFL Comment: Result canceled by the ancillar y. Glucose CANCELED 12/03/2021 8:50 AM CDT CNFL Comment: Result canceled by the ancillar y. Ketones, QI(U) CANCELED 12/03/2021 8:50 AM CDT CN FL Comment: Result canceled by the ancillar y. Bilirubin CANCELED 12/03/2021 8:50 AM CDT CNFL Comment: Result canceled by the ancillar y. pH CANCELED 12/03/2021 8:50 AM CDT CNFL Comment: Result canceled by the ancillar y. Specific [place] CANCELED 12/03/2021 8:50 AM CDT CNFL Comment: Result canceled by the ancillar y. Urobilinogen CANCELED 12/03/2021 8:50 AM CDT CNFL Comment: Result canceled by the ancillar y. White Blood Cells CANCELED 12/03/2021 8:50 AM CDT CNFL Comment: Result canceled by the ancillar y. Red Blood Cells CANCELED 12/03/2021 8:50 AM CDT C NFL Comment: Result canceled by the ancillar y. Dysmorphic Red Blood Cells CANCELED 12/03/2021 8: 50 AM CDT CNFL Comment: Result canceled by the ancillar y. Hyaline Casts CANCELED /lpf 12/03/2021 8:50 AM CDT CNF L Comment: Result canceled by the ancillar y. Epithelial Casts CANCELED /lpf 12/03/2021 8:50 AM CDT CNFL Comment: Result canceled by the ancillar y. Leukocyte Casts CANCELED /lpf 12/03/2021 8:50 AM CDT C NFL Comment: Result canceled by the ancillar y. Red Blood Cell Casts CANCELED /lpf 12/03/2021 8:50 AM CDT CNFL Comment: Result canceled by the ancillar y. Granular Casts CANCELED /lpf 12/03/2021 8:50 AM CDT CN FL Comment: Result canceled by the ancillar y. Broad Casts CANCELED /lpf 12/03/2021 8:50 AM CDT CNFL Comment: Result canceled by the ancillar y. Fatty Casts CANCELED /lpf 12/03/2021 8:50 AM CDT CNFL Comment: Result canceled by the ancillar y. Waxy Casts CANCELED /lpf 12/03/2021 8:50 AM CDT CNFL Comment: Result canceled by the ancillar y. Oval Fat Body Casts CANCELED /lpf 12/03/2021 8:50 AM C DT CNFL Comment: Result canceled by the ancillar y. Oval Fat Body CANCELED /hpf 12/03/2021 8:50 AM CDT CNF L Comment: Result canceled by the ancillar y. Crystals CANCELED /lpf 12/03/2021 8:50 AM CDT CNFL Comment: Result canceled by the ancillar y. Fat CANCELED /hpf 12/03/2021 8:50 AM CDT CNFL Comment: Result canceled by the ancillar y. Mucus CANCELED /hpf 12/03/2021 8:50 AM CDT CNFL Comment: Result canceled by the ancillar y. Squamous Cells CANCELED /hpf 12/03/2021 8:50 AM CDT CN FL Comment: Result canceled by the ancillar y. Transitional Cells CANCELED /hpf 12/03/2021 8:50 AM CD T CNFL Comment: Result canceled by the ancillar y. Renal Cells CANCELED /hpf 12/03/2021 8:50 AM CDT CNFL Comment: Result canceled by the ancillar y. Bacteria CANCELED 12/03/2021 8:50 AM CDT CNFL Comment: Result canceled by the ancillar y. Yeast CANCELED 12/03/2021 8:50 AM CDT CNFL Comment: Result canceled by the ancillar y. Trichomonas CANCELED 12/03/2021 8:50 AM CDT CNFL Comment: Result canceled by the ancillar y. Sperm CANCELED 12/03/2021 8:50 AM CDT CNFL Comment: Result canceled by the ancillar y. Specimen Anatomical Collection Method Collection Time Receive d Time (Source) Location / / Volume Laterality Urine (Urine, 12/03/2021 8:23 AM 12/04/19 22 8:23 Voided) CDT AM CDT Narrative [facility] - 12/03/2021 8:50 AM CDT Urinalysis w/ Microscopic was cancelled on 12/03/2021 at 08:50; Duplicate test request. Otoniel Linares M.D. LAB URINE ORDERABLES Performing Organization Address City/State/[facility] Code Phon e Number [place] [address] [place], [place] [phone] [place] [address] [place] [address] [address] documented in this encounter Visit Diagnoses Diagnosis Transplant Liver (HCC) Medication Therapy [facility] Not Anticoa gulant Screening Examination Skin Cancer [...] documented as of this encounter Care Teams Brake Adjuster Relationship Specialty Start Date End Date Elsewhere, Pcp PCP - General Family Medicine 07/29/17 [facility] - Laboratory Medicine 04/12/[address] [address] documented as of this encounter
--- OUTSIDE RECORDS SUMMARY | 2022-04-13 11:59 | XMS_ITS | Encounter Summary ---
:1955 Author Organization [facility] Address [address] [place] [address] Care Team Providers Name Role Phone Elsewhere, Pcp Primary Care Provider Unavailable Reason for Visit Reason Comments Txp Tacrolimus Adjustment Protocol - Liver Encounter Details Date Type Department Care Team Description 11/30/2021 Clinical Curt Moss, [facility] Communication Center for Yolie R, Adjustment Transplantation and R.N. 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 - 11/30/2021 8:12 AM CDT Images from the original note were not included. Tacrolimus level within goal range of Active Patient Thresholds Lab Low High Effective Since Comment Tacrolimus Level 1.5 4 09/21/2021 Recent Tacrolimus Values 10/15/2021 10/17/2021 10/24/2021 10/31/2021 11/07/2021 11/14/2021 11/21/2021 11/28/2021 8:08 AM 8:38 AM 9:00 AM 8:28 AM 8:31 AM 7:32 AM 8:02 AM 8:19 AM Tacrolimus 2.0 1.5 <1.0 <1.0 <1.0 <1.0 <1.0 2.0 , per Tacrolimus Adjustment Protocol no dose change recommended. Other lab results received and reviewed, stable trends, continue monitoring weekly. documented in this encounter Plan of Treatment Upcoming Encounters Date Type Specialty Care Team Description 04/24/2022 Appointment Laboratory Medicine Angélica Granger P.A.-C. [address] [place] [phone] 04/25/2022 Office Visit Otorhinolaryngology Dex Matta APRN CDemetriusNDemetriusPDemetrius, M.S.N. [address] [place] [phone] 05/08/2022 Appointment Laboratory Medicine Angélica Granger P.A.-C. [address] [place] [phone] 05/08/2022 Clinical Admitting/Central Communication Scheduling 05/10/2022 Appointment Radiology Jeremie Rose M.D. [address] [place] [phone] 05/10/2022 Comprehensive Visit Orthopedic Surgery Warner Graves M.D. [address] [place] [phone] 05/22/2022 Appointment Laboratory Medicine Angélica Granger P.A.-C. [address] [place] [phone] 06/05/2022 Appointment Laboratory Medicine Angélica Granger P.A.-C. [address] [place] [phone] 06/19/2022 Appointment Laboratory Medicine Angélica Granger P.A.-C. [address] [place] [phone] 07/03/2022 Appointment Laboratory Medicine Angélica Granger P.A.-C. [address] [place] [phone] 07/17/2022 Appointment Laboratory Medicine Angélica Granger P.A.-C. [address] [place] [phone] 07/31/2022 Appointment Laboratory Medicine Angéilca Granger P.A.-C. [address] [place] [phone] 08/14/2022 Appointment Laboratory Medicine Angélica Granger P.A.-C. [address] [place] [phone] 08/28/2022 Appointment Laboratory Medicine Angélica Granger P.A.-C. [address] [place] [phone] documented as of this encounter Visit Diagnoses Not on filedocumented in this encounter Additional Health Concerns Assessment Noted Time PHQ-9 Depression Total Score: 4 11/28/2020 10:17 AM CD T documented as of this encounter Care Teams Headend Technician Relationship Specialty Start Date End Date Elsewhere, Pcp PCP - General Family Medicine 07/29/17 [facility] - Laboratory Medicine 04/12/[address] [address] documented as of this encounter
--- OUTSIDE RECORDS SUMMARY | 2022-04-13 11:59 | XMS_ITS | Encounter Summary ---
:1955 Author Organization [facility] Address [address] [place] [address] Care Team Providers Name Role Phone Elsewhere, Pcp Primary Care Provider Unavailable Reason for Referral Outpatient (Routine) - Closed Specialty Diagnoses / Procedures Referred By Contact Refer red To Contact Diagnoses Transplant Liver (HCC) Medication Therapy Mcfp Not Anticoagulant Otoniel Linares M.D. 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 [facility] Procedures BMD Bone Density Spine Hips [address] [place], [place] [phone] Referral ID Status Reason Start Date Expiration Date Visits Requ ested Visits Authorized [id number] Closed 09/05/2021 09/05/2022 1 1 Encounter Details Date Type Department Care Team Description 12/05/2021 Hospital Encounter Department of Otoniel Linares Trans plant Liver (HCC); Radiology, Kd Tubbs M.D. Medication Therapy Vice President Sales Not Anticoa Formerly [facility], in [address] [place] [phone] [place], [place] (Work) [phone] [phone] Social History Tobacco Use Types Packs/Day Years [...] or relatives? How often do you attend rastafari or More than 4 times per year 12/15/2021 congregation services? 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 Medication Therapy Mcfp Not Anticoagulant pen needle, diabetic 1 Injection [...] Appointment Laboratory Medicine Angélica Granger P.ADemetrius-CDemetrius [address] [place] [phone] 04/25/2022 Office Visit Otorhinolaryngology Dex Matta APRN, C.N.P., M.S.N. [address] [place] [phone] 05/08/2022 Appointment Laboratory Medicine Angélica Granger P.A.-CDemetrius [address] [place] [phone] 05/08/2022 Clinical Admitting/Central Communication Scheduling 05/10/2022 Appointment Radiology Jeremie Rose M.D. [address] [place] [phone] 05/10/2022 Comprehensive Visit Orthopedic Surgery Warner Graves M.D. [address] [place] [phone] 05/22/2022 Appointment Laboratory Medicine Angélica Granger P.A.-C. [address] [place] [phone] 06/05/2022 Appointment Laboratory Medicine Angélica Granger P.A.-C. [address] [place] [phone] 06/19/2022 Appointment Laboratory Medicine Angélica Granger P.A.-C. [address] [place] [phone] 07/03/2022 Appointment Laboratory Medicine Angélica Granger P.A.-C. [address] [place] [phone] 07/17/2022 Appointment Laboratory Medicine Angélica Granger P.A.-C. [address] [place] [phone] 07/31/2022 Appointment Laboratory Medicine Angélica Granger P.A.-C. [address] [place] [phone] 08/14/2022 Appointment Laboratory Medicine Angélica Granger P.A.-C. [address] [place] [phone] 08/28/2022 Appointment Laboratory Medicine Angélica Granger P.A.-C. [address] [place] [phone] documented as of this encounter Procedures Procedure Name Priority Date/Time Associated Diagnosis Comme nts BMD BONE DENSITY RAD - Routine 12/05/2021 12:55 Transplant Liver Re sults for this SPINE HIPS (most inpatients PM CDT (HCC) procedure are in and all Medication Therapy the resul ts outpatients) Vice President Sales Not section. Anticoagulant documented in this encounter Results BMD Bone Density Spine Hips (12/05/2021 12:55 PM CDT) Anatomical Region Laterality Modality Hip, Lumbar Spine, Nuclear Medicine RST LOS, N/A Radiographic Imaging Musculoskeletal ARZ LOS, Muskuloskeletal FLA LOS Specimen (Source) Anatomical Collection Method Collection Time Re ceived Time Location / / Volume Laterality 12/05/2021 1:09 PM CDT Impressions 12/05/2021 1:17 PM CDT Low bone density (Osteopenia) DualFemur (region: Neck Right) ?? Narrative 12/05/2021 1:17 PM CDT EXAM: ??BMD BONE DENSITY SPINE HIPS Bone Mineral Density (BMD) analysis perf ormed on [employer]ER[employer] with serial number [id number]. ? COMPARISON: Serial Comparisons Left Total Hip results: Exam Date ? BMD ? T-sco re ? 08/10/2003 ? 1.214 g/cm2 ?? 1.6 ? ... ? ... ? .. . ? 07/31/2009 ?1.104 g/cm2 ?? 0.8 ? 07/31/2009 ?1.110 g/cm2 ?? 0.8 ? 09/18/2011 ? 1.068 g/cm2 ?? 0.5 ? 09/18/2011 ? 1.072 g/cm2 ?? 0.5 ? 10/21/2012 ?0.982 g/cm2 ?? -0.2 ? 10/21/2012 ?0.985 g/cm2 ?? -0.2 ? 05/31/2014 ? 1.005 g/cm2 ?? 0.0 ? 08/26/2017 ?1.034 g/cm2 ?? 0.2 ? 12/05/2021 ? 0.923 g/cm2 ?? -0.7 ? Change vs. Previous (difference): -0.111 g/cm2 *Change vs. Previous (%): -10.7 % The absolute BMD change from previous, - 0.111 g/cm2, is greater than least significant change : Yes The absolute BMD change from baseline, - 0.291 g/cm2, is greater than least significant change : Yes Right Total Hip results: Exam Date ? BMD ? T-sco re ? 09/10/2005 ? 1.284 g/cm2 ?? 2.2 ? ... ? ... ? .. . ? 07/31/2009 ?1.259 g/cm2 ?? 2.0 ? 07/31/2009 ?1.258 g/cm2 ?? 2.0 ? 09/18/2011 ? 1.208 g/cm2 ?? 1.6 ? 09/18/2011 ? 1.207 g/cm2 ?? 1.6 ? 10/21/2012 ?1.051 g/cm2 ?? 0.3 ? 10/21/2012 ?1.054 g/cm2 ?? 0.4 ? 05/31/2014 ? 1.026 g/cm2 ?? 0.1 ? 08/26/2017 ?1.014 g/cm2 ?? 0.0 ? 12/05/2021 ? 0.847 g/cm2 ?? -1.3 ? Change vs. Previous (difference): -0.167 g/cm2 *Change vs. Previous (%): -16.5 % The absolute BMD change from previous, - 0.167 g/cm2, is greater than least significant change : Yes The absolute BMD change from baseline, - 0.437 g/cm2, is greater than least significant change : Yes Combined Total Hip results: Exam Date ? BMD ? T-sco re ? 09/10/2005 ? 1.195 g/cm2 ?? 1.5 ? ... ? ... ? .. . ? 07/31/2009 ?1.181 g/cm2 ?? 1.4 ? 07/31/2009 ?1.184 g/cm2 ?? 1.4 ? 09/18/2011 ? 1.138 g/cm2 ?? 1.0 ? 09/18/2011 ? 1.139 g/cm2 ?? 1.0 ? 10/21/2012 ?1.016 g/cm2 ?? 0.1 ? 10/21/2012 ?1.020 g/cm2 ?? 0.1 ? 05/31/2014 ? 1.015 g/cm2 ?? 0.1 ? 08/26/2017 ?1.024 g/cm2 ?? 0.1 ? 12/05/2021 ? 0.885 g/cm2 ?? -1.0 ? Change vs. Previous (difference): -0.139 g/cm2 *Change vs. Previous (%): -13.6 % The absolute BMD change from previous, - 0.139 g/cm2, is greater than least significant change : Yes The absolute BMD change from baseline, - 0.310 g/cm2, is greater than least significant change : Yes FINDINGS: Left Hip: Femur Neck: BMD = 0.985 g/cm2 T-score = -0.4 ?Z-score = 0.5 Total Hip: BMD = 0.923 g/cm2 T-score = -0.7 ?Z-score = -0.6 Right Hip: Femur Neck: BMD = 0.831 g/cm2 T-score = -1.5 ?? Z-score = -0.7 Total Hip: BMD = 0.847 g/cm2 T-score = -1.3 ?Z-score = -1.1 ? Please note: A more comprehensive DXA re port, including images and graphs, is available in [employer]. In the absence of other causes of low BM D or demonstrated skeletal fragility, osteoporosis may be diagnosed in post-menopausal women and m en at or above age 50 when the T-score is at or below -2.5 as defined by the WHO. Low bone density is present at T-scores between -1 and - 2.5. The diagnosis in pre-menopausal women and men < age 50 ca n be based on low bone density or evidence of skeletal fragility in the appropriate clinical se tting. Based on the lowest femur neck bone dens ity results, and on the patient's answers to the Fracture Risk Assessment questionnaire (please re carli to appropriate image stored in the BMD study in [employer]), the calculated ten year probability of f racture is: FRAX Risk Factors: Glucocorticoids (Consumer Relations Complaint Clerk surinder), Secondary Osteoporosis FRAX (10 yr probability) Major Osteoporotic Fracture: ??10.3 % Hip Fracture: ?2.5 % ? Today's spine scan is considered non-barbi gnostic according to ISCD Guidelines. Procedure Note Nicholas Sanabria M.D. - 12/05/2021For matting of this note might be different from the original. EXAM: BMD BONE DENSITY SPINE HIPS Bone Mineral Density (BMD) analysis perf ormed on Yovia with serial number [id number]. COMPARISON: Serial Comparisons Left Total Hip results: Exam Date BMD T-score 08/10/2003 1.214 g/cm2 1.6 ... ... ... 07/31/2009 1.104 g/cm2 0.8 07/31/2009 1.110 g/cm2 0.8 09/18/2011 1.068 g/cm2 0.5 09/18/2011 1.072 g/cm2 0.5 10/21/2012 0.982 g/cm2 -0.2 10/21/2012 0.985 g/cm2 -0.2 05/31/2014 1.005 g/cm2 0.0 08/26/2017 1.034 g/cm2 0.2 12/05/2021 0.923 g/cm2 -0.7 Change vs. Previous (difference): -0.111 g/cm2 *Change vs. Previous (%): -10.7 % The absolute BMD change from previous, - 0.111 g/cm2, is greater than least significant change : Yes The absolute BMD change from baseline, - 0.291 g/cm2, is greater than least significant change : Yes Right Total Hip results: Exam Date BMD T-score 09/10/2005 1.284 g/cm2 2.2 ... ... ... 07/31/2009 1.259 g/cm2 2.0 07/31/2009 1.258 g/cm2 2.0 09/18/2011 1.208 g/cm2 1.6 09/18/2011 1.207 g/cm2 1.6 10/21/2012 1.051 g/cm2 0.3 10/21/2012 1.054 g/cm2 0.4 05/31/2014 1.026 g/cm2 0.1 08/26/2017 1.014 g/cm2 0.0 12/05/2021 0.847 g/cm2 -1.3 Change vs. Previous (difference): -0.167 g/cm2 *Change vs. Previous (%): -16.5 % The absolute BMD change from previous, - 0.167 g/cm2, is greater than least significant change : Yes The absolute BMD change from baseline, - 0.437 g/cm2, is greater than least significant change : Yes Combined Total Hip results: Exam Date BMD T-score 09/10/2005 1.195 g/cm2 1.5 ... ... ... 07/31/2009 1.181 g/cm2 1.4 07/31/2009 1.184 g/cm2 1.4 09/18/2011 1.138 g/cm2 1.0 09/18/2011 1.139 g/cm2 1.0 10/21/2012 1.016 g/cm2 0.1 10/21/2012 1.020 g/cm2 0.1 05/31/2014 1.015 g/cm2 0.1 08/26/2017 1.024 g/cm2 0.1 12/05/2021 0.885 g/cm2 -1.0 Change vs. Previous (difference): -0.139 g/cm2 *Change vs. Previous (%): -13.6 % The absolute BMD change from previous, - 0.139 g/cm2, is greater than least significant change : Yes The absolute BMD change from baseline, - 0.310 g/cm2, is greater than least significant change : Yes FINDINGS: Left Hip: Femur Neck: BMD = 0.985 g/cm2 T-score = -0.4 Z-score = 0.5 Total Hip: BMD = 0.923 g/cm2 T-score = -0.7 Z-score = -0.6 Right Hip: Femur Neck: BMD = 0.831 g/cm2 T-score = -1.5 Z-score = -0.7 Total Hip: BMD = 0.847 g/cm2 T-score = -1.3 Z-score = -1.1 Please note: A more comprehensive DXA re port, including images and graphs, is available in [employer]. In the absence of other causes of low BM D or demonstrated skeletal fragility, osteoporosis may be diagnosed in post-menopausal women and m en at or above age 50 when the T-score is at or below -2.5 as defined by the WHO. Low bone density is present at T-scores between -1 and - 2.5. The diagnosis in pre-menopausal women and men < age 50 ca n be based on low bone density or evidence of skeletal fragility in the appropriate clinical se tting. Based on the lowest femur neck bone dens ity results, and on the patient's answers to the Fracture Risk Assessment questionnaire (please re carli to appropriate image stored in the BMD study in [employer]), the calculated ten year probability of f bonnie is: FRAX Risk Factors: Glucocorticoids (Consumer Relations Complaint Clerk surinder), Secondary Osteoporosis FRAX (10 yr probability) Major Osteoporotic Fracture: 10.3 % Hip Fracture: 2.5 % Today's spine scan is considered non-barbi gnostic according to ISCD Guidelines. 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
--- OUTSIDE RECORDS SUMMARY | 2022-04-13 11:59 | XMS_ITS | Encounter Summary ---
:1955 Author Organization [facility] Address [address] [place] [address] Care Team Providers Name Role Phone Elsewhere, Pcp Primary Care Provider Unavailable Encounter Details Date Type Department Care Team Description 11/26/2021 Orders Only Division of Nephrology and Elissa Wilcox A PRN, Hypertension, Zoroastrian C.N.P. 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 [address] [place] [phone] 04/25/2022 Office Visit Otorhinolaryngology Dex Matta APRN, C.N.P., M.S.N. [address] [place] [phone] 05/08/2022 Appointment Laboratory Medicine Angélica Granger P.A.-C. [address] [place] [phone] 05/08/2022 Clinical Admitting/Central Communication Scheduling 05/10/2022 Appointment Radiology Jeremie Rose M.D. [address] [place] [phone] 05/10/2022 Comprehensive Visit Orthopedic Surgery Warner Graves M.D. [address] [place] [phone] 05/22/2022 Appointment Laboratory Medicine Angélica Granger P.A.-C. [address] [place] [phone] 06/05/2022 Appointment Laboratory Medicine Angélica Granger P.A.-C. [address] [place] [phone] 06/19/2022 Appointment Laboratory Medicine Angélica Granger P.A.-C. [address] [place] [phone] 07/03/2022 Appointment Laboratory Medicine Angélica Granger P.A.-C. [address] [place] [phone] 07/17/2022 Appointment Laboratory Medicine Angélica Granger P.A.-C. [address] [place] [phone] 07/31/2022 Appointment Laboratory Medicine Angélica Granger P.A.-C. [address] [place] [phone] 08/14/2022 Appointment Laboratory Medicine Angélica Granger P.A.-C. [address] [place] [phone] 08/28/2022 Appointment Laboratory Medicine Angélica Granger P.A.-C. 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
--- OUTSIDE RECORDS SUMMARY | 2022-04-13 11:59 | XMS_ITS | Encounter Summary ---
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 Education Answer Date Recorded What is the highest level of school you have Some college, n o degree 02/25/2019 completed or the highest degree you have received? 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 Medication Therapy Braided Band Assembler Not Anticoagulant pen needle, diabetic 1 [...] Laboratory Medicine Angélica Granger P.A.-C. [address] [place] [phone] 04/25/2022 Office Visit Otorhinolaryngology Dex Matta APRN, C.N.P., M.S.N. [address] [place] [phone] 05/08/2022 Appointment Laboratory Medicine Angélica Granger P.A.-C. [address] [place] [phone] 05/08/2022 Clinical Admitting/Central Communication Scheduling 05/10/2022 Appointment Radiology Jeremie Rose M.D. [address] [place] [phone] 05/10/2022 Comprehensive Visit Orthopedic Surgery Warner Graves M.D. [address] [place] [phone] 05/22/2022 Appointment Laboratory Medicine Angélica Granger P.A.-CDemetrius [address] [place] [phone] 06/05/2022 Appointment Laboratory Medicine Angélica Granger P.A.-C. [address] [place] [phone] 06/19/2022 Appointment Laboratory Medicine Angélica Granger P.A.-C. [address] [place] [phone] 07/03/2022 Appointment Laboratory Medicine Angélica Granger P.A.-C. [address] [place] [phone] 07/17/2022 Appointment Laboratory Medicine Angélica Granger P.A.-C. [address] [place] [phone] 07/31/2022 Appointment Laboratory Medicine Angélica Granger P.A.-C. [address] [place] [phone] 08/14/2022 Appointment Laboratory Medicine Angélica Granger P.A.-C. [address] [place] [phone] 08/28/2022 Appointment Laboratory Medicine Angélica Granger P.A.-C. [address] [place] [phone] documented as of this encounter Procedures Procedure Name Priority Date/Time Associated Diagnosis Comme nts CMV DNA DETECT/QUANT, Routine 12/03/2021 7:56 Transplant Liver Results for this P AM CDT (HCC) procedure are in Medication Therapy [facility] Prison Not section. Anticoagulant PROSTATE-SPECIFIC AG Routine 12/03/2021 7:56 Transplant Liver Results for this (PSA) SCRN, S AM CDT (HCC) procedure are in Medication Therapy [facility] Braided Band Assembler Not section. 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) Other Secondary Hypertension Other Bipolar Disorder (HCC) Hyperlipidemia Chronic Obstructive Pulmonary Disease Without Exacerbation (HCC) Anemia Screening Examination Prostate Cancer CYSTATIN C WITH EGFR Routine 12/03/2021 7:56 Transplant Liver Results for this AM CDT (HCC) procedure are in Medication Therapy [facility] ts Braided Band Assembler Not section. 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) Other Secondary Hypertension Other Bipolar Disorder (HCC) Hyperlipidemia Chronic Obstructive Pulmonary Disease Without Exacerbation (HCC) Anemia Screening Examination Prostate Cancer TACROLIMUS LEVEL, B Routine 12/03/2021 7:56 Transplant Liver R esults for this AM CDT (HCC) procedure are in Medication Therapy [facility] ts Braided Band Assembler Not section. 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) Other Secondary Hypertension Other Bipolar Disorder (HCC) Hyperlipidemia Chronic Obstructive Pulmonary Disease Without Exacerbation (HCC) Anemia Screening Examination Prostate Cancer IRON AND TOT Routine 12/03/2021 7:56 Transplant Liver Results for this IRON-BINDING AM CDT (HCC) procedure are in CAPACITY, S/P Medication Therapy the resu lts Braided Band Assembler Not section. 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) Other Secondary Hypertension Other Bipolar Disorder (HCC) Hyperlipidemia Chronic Obstructive Pulmonary Disease Without Exacerbation (HCC) Anemia Screening Examination Prostate Cancer PARATHYROID HORMONE Routine 12/03/2021 7:56 Transplant Liver R esults for this (PTH), S AM CDT (HCC) procedure are in Medication Therapy [facility] ts Braided Band Assembler Not section. 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) Other Secondary Hypertension Other Bipolar Disorder (HCC) Hyperlipidemia Chronic Obstructive Pulmonary Disease Without Exacerbation (HCC) Anemia Screening Examination Prostate Cancer MORPHOLOGY EVALUATION Routine 12/03/2021 7:55 Res ults for this AM CDT procedure are i n the results section. MANUAL DIFFERENTIAL, Routine 12/03/2021 7:55 Resu lts for this B AM CDT procedure are i n the results section. BLOOD BANK HOLD Routine 12/03/2021 7:55 Results f or this SAMPLE AM CDT procedure are i n the results section. LIPID PANEL, S Routine 12/03/2021 7:55 Transplant Liver Result s for this AM CDT (HCC) procedure are in Medication Therapy the resul ts Prison Not section. 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 ----ADDITIONAL INFORMATION---- The quantification range of this assay i s 35 to 10,000,000 IU/mL (1.54 log to 7.00 log IU/mL). Testing was performed u sing the didier CMV test ([employer] with the didier Touch-Writer0 System. Specimen Anatomical Collection Method Collection Time Receive d Time (Source) Location / / Volume Laterality Blood (Blood, 12/03/2021 7:56 AM 12/05/19 7:15 Venous) CDT AM CDT Otoniel Linares M.D. LAB MICROBIOLOGY - BLOOD ORD ERABLES Performing Organization Address City/State/ZIP Code Phon e Number [facility] [address] [place], [place] [address] [place] [address] [place] [address] Laboratory Medicine and Pathology [address] [place] (ABNORMAL) Parathyroid Hormone (PTH) (12/03/2021 7:56 AM CDT) Analysis Performed At Patho logist Time Signature Parathyroid 120 (H) 15 - 65 12/03/2021 [facility] Hormone (PTH), S pg/mL 2:03 PM CDT Comment: Biotin has been identified by the [facility] as a potential interfering substance. Higher concentrations of biotin may be found in multivitamins, de souza ir/nail supplements, and workout supplements. If the result d oes not match clinical observations, repeat testing af ter patient refrains from the use of supplements for at least 12 hours. Specimen Anatomical Collection Method Collection Time Receive d Time (Source) Location / / Volume Laterality Blood (Blood, 12/03/2021 7:56 AM 12/04/19 1:39 Venous) CDT PM CDT Otoniel Linares M.D. LAB BLOOD ADD-ON Performing Organization Address City/[facility]/ZIP Code Phon e Number [facility]- [address] [place] [address] [address] [place] [address] System in [place] [address] [place] [address] (ABNORMAL) Cystatin C with Estimated GFR, S (12/03/2021 7:56 AM CDT) P athologist Signature eGFR by 10 (L) >60 12/04/2021 [facility] Cystatin C mL/min/BSA 11:20 AM CDT Comment: Estimated GFR calculated using the CKD-E PI Cystatin C (2012) equation. ----ADDITIONAL INFORMATION---- Cystatin C-based eGFR may differ substantially from creatinine- based eGFR in patients with abnormal muscle mass or acutely changing renal function. ??Please interpret together with relevant clinical features. On 11/16/2020 the cystatin C assay method changed. Cystatin C eGFR results > 50 ml/min/1.73m2 are approximately 10% lower with the new assay. Cystatin C 4.76 (H) 0.67 - 1.21 mg/L 12/04/2021 11:20 AM CD T DTL Specimen Anatomical Collection Method Collection Time Receive d Time (Source) Location / / Volume Laterality Blood (Blood, 12/03/2021 7:56 AM 12/05/19 Venous) CDT 11:03 AM CDT Otoniel Linares M.D. LAB BLOOD ADD-ON Performing Organization Address City/[facility] Code Phon e Number [facility]IES - [address] [place], [place] [address] [place] [address] Laboratories-[facility] [address] (ABNORMAL) Tacrolimus, B (12/03/2021 7:56 AM CDT) athologist Signature Tacrolimus, B 1.6 (L) 5.0-15.0 12/04/2021 [facility] (Trough) 11:38 AM CDT ng/mL Comment: ----ADDITIONAL INFORMATION---- Target steady-state trough concentration s vary depending on the type of transplant, concomitant immunosuppressio n, clinical/institutional protocols, and time post-transplant. Results should be interpreted in conjunction with this clinical information and any physic al signs/symptoms of rejection/toxicity. Testing performed by Liquid Chromatograp hy-Tandem Mass Spectrometry (LC-MS/MS). This test was developed and its performa nce characteristics determined by [facility] in a manner consistent with CLIA requirements. This test has not been cleared or approved by the U.S. Mer d and Drug Administration. Specimen Anatomical Collection Method Collection Time Receive d Time (Source) Location / / Volume Laterality Blood (Blood, 12/03/2021 7:56 AM 12/05/19 7:29 Venous) CDT AM CDT tOoniel Linares M.D. LAB BLOOD NON ADD-ON Performing Organization Address City/State/ZIP Code Phon e Number [facility] [address] [place], [place] [address] SUPPORT CENTER [facility] [place] [address] Laboratory Medicine and Pathology [address] [place] PSA (Prostate-Specific Antigen) Screen (12/03/2021 7:56 AM CDT) athologist Signature Prostate-Specif 0.56 <=4.5 ng/mL 12/03/2021 [facility] ic Ag 2:14 PM CDT Comment: ----ADDITIONAL INFORMATION---- The testing method is an electrochemilum inescence assay manufactured by [employer] and performed on the Modular or Didier system . Values obtained with different assay met hods or kits may be different and cannot be used inte rchangeably. Test results cannot be interpreted as ab solute evidence for the presence or absence of malignant disease. Specimen Anatomical Collection Method Collection Time Receive d Time (Source) Location / / Volume Laterality Blood (Blood, 12/03/2021 7:56 AM 12/04/19 1:41 Venous) CDT PM CDT Otoniel Linares M.D. LAB BLOOD ADD-ON Performing Organization Address City/[facility] Phon e Number [facility]- [address] [place] [address] [address] [place] [address] System in [address] Prothrombin Time (PT) (12/03/2021 7:56 AM CDT) athologist Signature Prothrombin 11.1 9.4 - 12.5 12/03/2021 [facility] Time, P sec 9:21 AM CDT INR 1.0 0.9 - 1.1 12/03/2021 [place] 9:21 AM CDT Comment: ----ADDITIONAL INFORMATION---- Standard intensity warfarin therapeutic range: 2.0 to 3.0 ?? High intensity warfarin therapeutic rang e: 2.5 to 3.5 Specimen Anatomical Collection Method Collection Time Receive d Time (Source) Location / / Volume Laterality Blood (Blood, 12/03/2021 7:56 AM 12/04/19 22 8:05 Venous) CDT AM CDT Otoniel Linares M.D. LAB BLOOD ADD-ON Performing Organization Address City/[facility] Phon e Number [address] [address] [place] [address] System in [place] [address] 25-Hydroxyvitamin D2 and D3 (12/03/2021 7:56 AM CDT) athologist Signature 25-Hydroxy D2 <4.0 ng/mL 12/05/2021 [facility] 3:16 PM CDT 25-Hydroxy D3 42 ng/mL 12/05/2021 [facility] 3:16 PM CDT 25-Hydroxy D 42 ng/mL 12/05/2021 [facility] Total 3:16 PM CDT Comment: ----REFERENCE VALUE---- 25-HYDROXY D TOTAL (D2+D3) Optimum level s in the healthy population are 20-50, patients with bone disease may benefit from higher levels within this r itzel. ----ADDITIONAL INFORMATION---- This test was developed and its performa nce characteristics determined by [facility] in a manner consistent with CLIA requirements. This test has not been cleared or approved by the U.S. Mer d and Drug Administration. Specimen Anatomical Collection Method Collection Time Receive d Time (Source) Location / / Volume Laterality Blood (Blood, 12/03/2021 7:56 AM 12/05/19 7:20 Venous) CDT AM CDT Otoniel Linares M.D. LAB BLOOD ADD-ON Performing Organization Address City/State/ZIP Code Phon e Number [facility] [address] [place], [place] [address] [facility] [place] [address] Laboratory Medicine and Pathology [address] [place] (ABNORMAL) Iron and Total Iron-Binding Capacity (12/03/2021 7:56 AM CDT) athologist Signature Iron 81 50 - 150 12/03/2021 [facility] mcg/dL 2:01 PM CDT Total Iron 209 (L) 250 - 400 12/03/2021 [facility] Binding mcg/dL 2:01 PM CDT Capacity Percent 39 14 - 50 % 12/03/2021 [facility] Saturation 2:01 PM CDT Specimen Anatomical Collection Method Collection Time Receive d Time (Source) Location / / Volume Laterality Blood (Blood, 12/03/2021 7:56 AM 12/04/19 1:41 Venous) CDT PM CDT Otoniel Linares M.D. LAB BLOOD ADD-ON Performing Organization Address City/State/ZIP Code Phon e Number [facility]- [address] [place], [place] [address] [address] [place] [address] System in [place] [address] (ABNORMAL) S-TSH (Thyroid-Stimulating Hormone - Sensitive) (12/03/2021 7:56 AM CDT) athologist Signature TSH, Sensitive 4.9 (H) 0.3 - 4.2 12/03/2021 [facility] mIU/L 8:54 AM CDT Specimen Anatomical Collection Method Collection Time Receive d Time (Source) Location / / Volume Laterality Blood (Blood, 12/03/2021 7:56 AM 12/04/19 22 8:04 Venous) CDT AM CDT Otoniel Linares M.D. LAB BLOOD ADD-ON Performing Organization Address City/[facility]/ZIP Code Phon e Number [address] [place] [address] [place] [address] System in [place] [address] [address] Hemoglobin A1c (12/03/2021 7:56 AM CDT) athologist Signature Hemoglobin A1c, 5.6 4.2 - 5.6 12/03/2021 [facility] B % 8:46 AM CDT Specimen Anatomical Collection Method Collection Time Receive d Time (Source) Location / / Volume Laterality Blood (Blood, 12/03/2021 7:56 AM 12/04/19 22 8:05 Venous) CDT AM CDT Otoniel Linares M.D. LAB BLOOD ADD-ON Performing Organization Address City/[facility]/ZIP Code Phon e Number [address] [place] [address] [place] [address] System in [place] [address] [address] (ABNORMAL) Morphology Evaluation (12/03/2021 7:55 AM CDT) [facility] gist Method Time Signature RBC Morphology See Specific 12/03/2021 [facility] Findings 10:25 AM CDT PLT Morphology Normal 12/03/2021 [facility] 10:25 AM CDT PLT Estimate Adequate Adequate 12/03/2021 [facility] 10:25 AM CDT Anisocytosis Slight (A) 12/03/2021 [facility] 10:25 AM CDT Dacrocytes Slight (A) Not Seen 12/03/2021 [facility] 10:25 AM CDT Elliptocytes Slight (A) Not Seen 12/03/2021 [facility] 10:25 AM CDT Macrocytosis Slight (A) Not Seen 12/03/2021 [facility] 10:25 AM CDT Poikilocytosis Slight (A) Not Seen 12/03/2021 [facility] 10:25 AM CDT Specimen Anatomical Collection Method Collection Time Receive d Time (Source) Location / / Volume Laterality Blood 12/03/2021 7:55 AM 2 8:04 CDT AM CDT Otoniel Linares M.D. LAB BLOOD ADD-ON Performing Organization Address City/State/[facility] Code Phon e Number [facility]- [address] [place] [phone] [place] [address] [place] [address] System in [address] Manual Differential, B (12/03/2021 7:55 AM CDT) athologist Signature Segmented 69 50 - 75 % 12/03/2021 [facility] Neutrophils 10:24 AM CDT Lymphocytes % 25 18 - 42 % 12/03/2021 [facility] 10:24 AM CDT Monocytes 6 2 - 11 % 12/03/2021 [facility] 10:24 AM CDT Manual Absolute 2.69 1.56 - 12/03/2021 [facility] Neutrophil Count 6.45 10:24 AM CDT x10(9)/L Comment: ----ADDITIONAL INFORMATION---- The manual absolute neutrophil count is derived from a manual differential count and therefore is not exactly comparable to the automated absolute rui trophil count. Specimen Anatomical Collection Method Collection Time Receive d Time (Source) Location / / Volume Laterality Blood 12/03/2021 7:55 AM 2 8:04 CDT AM CDT Otoniel Linares M.D. LAB BLOOD ADD-ON Performing Organization Address City/State/ZIP Code Phon e Number [facility]- [address] [place] [phone] [place] [address] System in [address] Blood Bank Hold Sample (12/03/2021 7:55 AM CDT) [facility] Method Time Signature Blood Bank HOLD 12/03/2021 [facility] Hold Sample Confirmed 2:35 PM CDT Specimen Anatomical Collection Method Collection Time Receive d Time (Source) Location / / Volume Laterality Blood 12/03/2021 7:55 AM 8:04 CDT AM CDT Otoniel Linares M.D. LAB BLOOD BANK TEST ORDERABL ES Performing Organization Address City/[facility]/ZIP Code Phon e Number [facility]- [address] [place], [place] [address] [place] [address] System in [place] [address] [facility] (ABNORMAL) CBC with Differential, Blood (12/03/2021 7:55 AM CDT) Component Value Ref Test Analysis Performed At [facility] Range Method Time Signature Hemoglobin 9.8 (L) 13.2 - 12/03/2021 CNFL 16.6 10:02 AM g/dL CDT Hematocrit 31.1 (L) 38.3 - 12/03/2021 CNFL 48.6 % 10:02 AM CDT Erythrocytes 2.96 (L) 4.35 - 12/03/2021 CNFL 5.65 10:02 AM x10(12)/ CDT L MCV 105.1 (H) 78.2 - 12/03/2021 CNFL 97.9 fL 10:02 AM CDT RBC Distrib 14.3 11.8 - 12/03/2021 CNFL Width 14.5 % 10:02 AM CDT Platelet Count 292 135 - 12/03/2021 CNFL 317 10:02 AM x10(9)/L CDT Leukocytes 3.9 3.4 - 12/03/2021 CNFL 9.6 10:02 AM x10(9)/L CDT Neutrophils See manual 1.56 - 12/03/2021 CNFL differential 6.45 10:23 AM x10(9)/L CDT Specimen Anatomical Collection Method Collection Time Receive d Time (Source) Location / / Volume Laterality Blood (Blood, 12/03/2021 7:55 AM 12/04/19 22 8:04 Venous) CDT AM CDT Otoniel Linares M.D. LAB BLOOD ADD-ON Performing Organization Address City/[facility]/ZIP Code Phon e Number [address] [address] [place] [address] System in [place] [address] [address] (ABNORMAL) Phosphorus Inorganic (12/03/2021 7:55 AM CDT) P athologist Signature Phosphorus 4.9 (H) 2.5 - 4.5 12/03/2021 CNFL (Inorganic), P mg/dL 8:41 AM CDT Specimen Anatomical Collection Method Collection Time Receive d Time (Source) Location / / Volume Laterality Blood (Blood, 12/03/2021 7:55 AM 12/04/19 22 8:04 Venous) CDT AM CDT Otoniel Linares M.D. LAB BLOOD ADD-ON Performing Organization Address City/[facility]/ZIP Code Phon e Number [address] [address] [place] [address] System in [place] [address] [address] Magnesium (12/03/2021 7:55 AM CDT) P athologist Signature Magnesium, P 2.3 1.7 - 2.3 12/03/2021 CNFL mg/dL 8:41 AM CDT Specimen Anatomical Collection Method Collection Time Receive d Time (Source) Location / / Volume Laterality Blood (Blood, 12/03/2021 7:55 AM 12/04/19 22 8:04 Venous) CDT AM CDT Otoniel Linares M.D. LAB BLOOD ADD-ON Performing Organization Address City/[facility]/ZIP Code Phon e Number [address] [place] [address] [place] [address] System in [place] [address] [address] Uric Acid (12/03/2021 7:55 AM CDT) athologist Signature Uric Acid, P 5.4 3.7 - 8.0 12/03/2021 CNFL mg/dL 8:41 AM CDT Specimen Anatomical Collection Method Collection Time Receive d Time (Source) Location / / Volume Laterality Blood (Blood, 12/03/2021 7:55 AM 12/04/19 8:04 Venous) CDT AM CDT Otoniel Linares M.D. LAB BLOOD ADD-ON Performing Organization Address City/State/ZIP Code Phon e Number [address] [place] [address] [place] [address] System in [address] Lipid Panel (12/03/2021 7:55 AM CDT) athologist Signature Cholesterol, 140 mg/dL 12/03/2021 CNFL Total 8:41 AM CDT Comment: ----REFERENCE VALUE---- Desirable: < 200 Borderline high: 200 - 239 High: > or = 240 Triglycerides 111 mg/dL 12/03/2021 8:41 AM CDT CNF L Comment: ----REFERENCE VALUE---- Normal: <150 Borderline high: 150-199 High: 200-499 Very high: > or =500 Cholesterol, HDL 47 >=40 mg/dL 12/03/2021 8:41 AM CDT CNFL Calculated LDL 71 mg/dL 12/03/2021 8:41 AM CDT CN FL Comment: ----REFERENCE VALUE---- Desirable: <100 mg/dL Above Desirable: 100-129 mg/dL Borderline High: 130-159 mg/dL High: 160-189 mg/dL Very High: >=190 mg/dL Cholesterol, Non-HDL, Calculated 93 mg/dL 022 8:41 AM CDT CNFL Comment: ----REFERENCE VALUE---- Desirable: <130 Above Desirable: 130-159 Borderline high: 160-189 High: 190-219 Very high: > or =220 Specimen Anatomical Collection Method Collection Time Receive d Time (Source) Location / / Volume Laterality Blood (Blood, 12/03/2021 7:55 AM 12/04/19 8:04 Venous) CDT AM CDT Otoniel Linares M.D. LAB BLOOD ADD-ON Performing Organization Address City/State/ZIP Code Phon e Number [address] [address] [place] [address] System in [address] (ABNORMAL) Comprehensive Metabolic Panel (12/03/2021 7:55 AM CDT) Analysis Performed At Patho logist Time Signature Potassium, P 3.9 3.6 - 5.2 12/03/2021 CNFL mmol/L 8:41 AM CDT Sodium, P 138 135 - 145 12/03/2021 CNFL mmol/L 8:41 AM CDT Chloride, P 99 98 - 107 12/03/2021 CNFL mmol/L 8:41 AM CDT Bicarbonate, P 24 22 - 29 12/03/2021 CNFL mmol/L 8:41 AM CDT Anion Gap, P 15 7 - 15 12/03/2021 CNFL 8:41 AM CDT BUN (Blood Urea 45 (H) 8 - 24 12/03/2021 CNFL Nitrogen), P mg/dL 8:41 AM CDT Creatinine 4.03 (H) 0.74 - 12/03/2021 CNFL 1.35 mg/dL 8:41 AM CDT eGFR-Black/Afri 17 (L) >=60 12/03/2021 CNFL can Malagasy mL/min/BSA 8:41 AM CDT Comment: ----ADDITIONAL INFORMATION---- Estimated GFR calculated using the 2009 CKD_EPI creatinine equation. eGFR Non-Black/ <15 (L) >=60 mL/min/BSA 12/03/2021 8:41 AM CDT CNFL Malagasy Comment: ----ADDITIONAL INFORMATION---- Estimated GFR calculated using the 2009 CKD_EPI creatinine equation. Calcium, Total, P 9.1 8.8 - 10.2 mg/dL 12/03/2021 8:41 AM CDT CNFL Glucose, P 110 70 - 140 mg/dL 12/03/2021 8:41 AM CDT C NFL Protein, Total, P 6.3 6.3 - 7.9 g/dL 12/03/2021 8:41 A M CDT CNFL Albumin, P 4.2 3.5 - 5.0 g/dL 12/03/2021 8:41 AM CDT C NFL Aspartate Aminotransferase 21 8 - 48 U/L 12/03/2021 8 :41 AM CDT CNFL (AST), P Alkaline Phosphatase, P 107 40 - 129 U/L 12/03/2021 8: 41 AM CDT CNFL Alanine Aminotransferase (ALT), 17 7 - 55 U/L 022 8:41 AM CDT CNFL P Bilirubin, Total, P 0.3 <=1.2 mg/dL 12/03/2021 8:41 AM CDT CNFL Specimen Anatomical Collection Method Collection Time Receive d Time (Source) Location / / Volume Laterality Blood (Blood, 12/03/2021 7:55 AM 12/04/19 8:04 Venous) CDT AM CDT Otoniel Linares M.D. LAB BLOOD ADD-ON Performing Organization Address City/[facility] Code Phon e Number [address] [address] [place] [address] [address] Bilirubin, Direct (12/03/2021 7:55 AM CDT) P athologist Signature Bilirubin, <0.2 0.0 - 0.3 12/03/2021 CNFL Direct, P mg/dL 8:41 AM CDT Specimen Anatomical Collection Method Collection Time Receive d Time (Source) Location / / Volume Laterality Blood (Blood, 12/03/2021 7:55 AM 12/04/19 8:04 Venous) CDT AM CDT Otoniel Linares M.D. LAB BLOOD ADD-ON Performing Organization Address City/[facility] Phon e Number [address] [address] [place] [address] System in [place] [address] documented in this encounter Visit Diagnoses Diagnosis Transplant Liver (HCC) Medication Therapy Prison Not Anticoa gulant Screening Examination Skin Cancer [...] documented as of this encounter Care Teams Fish Butcher Relationship Specialty Start Date End Date Elsewhere, Pcp PCP - General Family Medicine 07/29/17 [facility] - Laboratory Medicine 04/12/20 [place] [phone] documented as of this encounter
--- OUTSIDE RECORDS SUMMARY | 2022-04-13 11:59 | XMS_ITS | Encounter Summary ---
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 [address] [place] [phone] Referral ID Status Reason Start Date Expiration Date Visits Requ ested Visits Authorized [id number] Closed 07/23/2021 07/23/2022 1 1 Encounter Details Date Type Department Care Team Description 12/05/2021 Comprehensive Visit Curt Diaz, Transplant Liver (HCC); Center Leonid Stern Medication Ther apy Longterm Not Anticoagulant; Transplantation and M.D. 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 - 12/05/2021 2:00 PM CDT Worsening bilateral pulmonary nodules. Status post liver transplant x 2 /kidney transplant candidate A comparison is made of the chest CT scans with the current scan of 12/05/2021. And to my pulmonary consultation on 06/21/2021. The evolution of the chest CT scan shows a progression of the bilateral pulmonary nodules greater in the lower lobes but diffuse throughout both lungs. He is status post livertransplantation x 2 and is being considered for kidney transplant. It is noted that the creatinine done a couple days ago was 4.03 with a GFR less than 15. I have reviewed the chest CT scan with one of our bronchoscopists and we agreed to proceed to a bronchoscopic evaluation with a bronchoalveolar lavage using the immunocompromised protocol. Gentleman will have dialysis tomorrow. Bronchoscopy is scheduled for [facility] 18 on Friday12/07/2021 Exam: No acute distress/ very pleasant gentleman. Heart indicates a regular rate no significant murmur Lungs abnormal with bilateral scattered crackles I do not hear significant wheezing but there is some and expiratory flow slowing Impression and plan A bronchoalveolar lavage in the setting of the immuno compromise situation (Tacrolimus and Cell Cept)lCept) is appropriate in view of the evolving chest CT scan. The procedure was described in detail to the patient. NPO after midnight and the procedure will be done Friday on [facility] 12/07/2021. He has dialysis scheduled for tomorrow. I have discussed this with the kidney transplant group. They concur. He should be seen by infectiousdisease following the bronchoscopic results. We will get COVID testing done tomorrow. All questions were answered. 45 minutes total time documented in this encounter Plan of Treatment Upcoming Encounters Date Type Specialty Care Team Description 04/24/2022 Appointment Laboratory Medicine Angélica Granger P.A.-C. [address] [place] [phone] 04/25/2022 Office Visit Otorhinolaryngology Dex Matta APRN, C.N.P., M.S.N. [address] [place] [phone] 05/08/2022 Appointment Laboratory Medicine Angélica Granger P.A.-C. [address] [place] [phone] 05/08/2022 Clinical Admitting/Central Communication Scheduling 05/10/2022 Appointment Radiology Jeremie Rose M.D. [address] [place] [phone] 05/10/2022 Comprehensive Visit Orthopedic Surgery Warner Graves M.D. [address] [place] [phone] 05/22/2022 Appointment Laboratory Medicine Angélica Granger P.A.-C. [address] [place] [phone] 06/05/2022 Appointment Laboratory Medicine Angélica Granger P.A.-C. [address] [place] [phone] 06/19/2022 Appointment Laboratory Medicine Angélica Granger P.A.-C. [address] [place] [phone] 07/03/2022 Appointment Laboratory Medicine Angélica Granger P.A.-C. [address] [place] [phone] 07/17/2022 Appointment Laboratory Medicine Angélica Granger P.A.-C. [address] [place] [phone] 07/31/2022 Appointment Laboratory Medicine Angélica Granger P.A.-C. [address] [place] [phone] 08/14/2022 Appointment Laboratory Medicine Angélica Granger P.A.-C. [address] [place] [phone] 08/28/2022 Appointment Laboratory Medicine Angélica Granger P.A.-C. [address] [place] [phone] documented as of this encounter Visit Diagnoses Diagnosis Transplant Liver (HCC) Medication Therapy Longterm Not Anticoa gulant Screening Examination Skin Cancer [...] documented as of this encounter Care Teams Morning News Producer Relationship Specialty Start Date End Date Elsewhere, Pcp PCP - General Family Medicine 07/29/17 [facility] - Laboratory Medicine 04/12/[address] [phone] documented as of this encounter
--- OUTSIDE RECORDS SUMMARY | 2022-04-13 12:00 | XMS_ITS | Encounter Summary ---
:1955 Author Organization [facility] Address [address] [place] [address] Care Team Providers Name Role Phone Elsewhere, Pcp Primary Care Provider Unavailable Encounter Details Date Type Department Care Team Description 11/07/2021 Hospital Encounter Department of Trung Plasencia Liver (HCC); Laboratory Medicine Edmundo Stern, Medicati on Therapy Senior Living Not Anticoagulant; in Jimmie Blake M.S. Colitis Cytomegalovirus (HCC) [address] [address] [place], [place] [phone] [address] (Work) [phone] Social History Tobacco Use Types Packs/Day Years [...] or relatives? How often do you attend yazidism or More than 4 times per year 12/15/2021 shinto services? 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 predniSONE (DELTASONE) Take 1 tablet (10 14 tablet 0 202111/10/2021 10 mg tablet mg total) by mouth daily for 14 doses. predniSONE (DELTASONE) Take 3 tablets (7.5 42 tablet 0 10/2211/24/2021 2.5 mg tablet mg total) by mouth daily for 14 doses. alcohol swabs pads, Use as needed for [...] each daily. 180 each 3 10/16/2021 12/10/2021 levothyroxine Take 1 tablet (25 90 tablet 3 12/12/202012/2021 (SYNTHROID, LEVOTHROID) mcg total) by mouth 25 mcg every morning tabletIndications: before breakfast. Transplant Liver ([facility]) lidocaine-prilocaine Apply 1 application 30 g 11 202102/07/2022 (EMLA) 2.5-2.5 % cream topically See Admin Instructions. 2 hours prior to dialysis. mycophenolate (CELLCEPT) Take 2 capsules 360 capsule 3 10/1902/15/2022 250 mg (500 mg total) by capsuleIndications: mouth 2 (two) times Transplant Liver ([facility]), a day. Do not Infection break, cut, or open Cytomegalovirus ([facility]), capsules. Medication Therapy Dialysis Patient Care Technician Not Anticoagulant NIFEdipine XL (PROCARDIA Take 1 tablet (30 270 tablet 3 09/2211/23/2021 XL) 30 mg 24 hr mg total) by mouth tabletIndications: daily. Hypertension And Chronic Kidney Disease Stage 4 ([facility]) pen needle, diabetic 1 Injection daily. 90 each 0 022 12/10/2021 (Novofine 32) 32 gauge x 1/4 needle sulfamethoxazole-trimeth Take 1 tablet by 60 tablet 1 10/1711/12/2021 oprim (BACTRIM,SEPTRA) mouth daily 400-80 mg per Indications: tabletIndications: Prophylaxis, Prophylaxis, medical medical. tacrolimus (PROGRAF) 0.5 Take 2 capsules (1 360 capsule 3 11/23/2021 mg capsule mg total) by mouth 2 (two) times a day. torsemide (DEMADEX) 10 Take 3 tablets (30 [...] Appointment Laboratory Medicine Angélica Granger P.A.-C. [address] [place] [phone] 04/25/2022 Office Visit Otorhinolaryngology Dex Matta APRN, C.N.P., M.S.N. [address] [place] [phone] 05/08/2022 Appointment Laboratory Medicine Angélica Granger P.A.-CDemetrius [address] [place] [phone] 05/08/2022 Clinical Admitting/Central Communication Scheduling 05/10/2022 Appointment Radiology Jeremie Rose M.D. [address] [place] [phone] 05/10/2022 Comprehensive Visit Orthopedic Surgery Warner Graves M.D. [address] [place] [phone] 05/22/2022 Appointment Laboratory Medicine Angélica Granger P.A.-C. [address] [place] [phone] 06/05/2022 Appointment Laboratory Medicine Angélica Granger P.A.-C. [address] [place] [phone] 06/19/2022 Appointment Laboratory Medicine Angélica Granger P.A.-C. [address] [place] [phone] 07/03/2022 Appointment Laboratory Medicine Angélica Granger P.A.-C. [address] [place] [phone] 07/17/2022 Appointment Laboratory Medicine Angélica Granger P.A.-C. [address] [place] [phone] 07/31/2022 Appointment Laboratory Medicine Angélica Granger P.A.-C. [address] [place] [phone] 08/14/2022 Appointment Laboratory Medicine Angélica Granger P.A.-C. [address] [place] [phone] 08/28/2022 Appointment Laboratory Medicine Angélica Granger P.A.-C. [address] [place] [phone] documented as of this encounter Procedures Procedure Name Priority Date/Time Associated Diagnosis Comme nts CMV DNA DETECT/QUANT, Routine 11/07/2021 8:31 Transplant Liver (HCC) Results for this P AM CDT Medication Therapy procedure are in Senior Living Not the results Anticoagulant section. Colitis Cytomegalovirus (HCC) TACROLIMUS LEVEL, B Routine 11/07/2021 8:31 Transplant L iver (HCC) Results for this AM CDT Medication Therapy procedure are in Dialysis Patient Care Technician Not the results Anticoagulant section. Colitis Cytomegalovirus (HCC) CBC WITHOUT Routine 11/07/2021 8:31 Transplant Liver (HCC) Results for this DIFFERENTIAL, B AM CDT Medication Therapy proced ure are in Dialysis Patient Care Technician Not the results Anticoagulant section. Colitis Cytomegalovirus (HCC) GLUCOSE, FASTING, S/P Routine 11/07/2021 8:31 Transplant Liver (HCC) Results for this AM CDT Medication Therapy procedure are in Dialysis Patient Care Technician Not the results Anticoagulant section. Colitis Cytomegalovirus (HCC) COMPREHENSIVE Routine 11/07/2021 8:31 Transplant Liver (HCC) Results for this METABOLIC PANEL, S/P AM CDT Medication Therapy p rocedure are in Dialysis Patient Care Technician Not the results Anticoagulant section. Colitis Cytomegalovirus (HCC) documented in this encounter Results (ABNORMAL) Tacrolimus, B (11/07/2021 8:31 AM CDT) athologist Signature Tacrolimus, B <1.0 (L) 5.0-15.0 11/08/2021 [facility] (Trough) 10:47 AM CDT ng/mL Comment: ----ADDITIONAL INFORMATION---- Target [...] performa nce characteristics determined by [facility] in a manner consistent with CLIA requirements. This test has not been cleared or approved by the U.S. Mer d and Drug Administration. Specimen Anatomical Collection Method Collection Time Receive d Time (Source) Location / / Volume Laterality Blood (Blood, 11/07/2021 8:31 AM 11/09/19 22 7:06 Venous) CDT AM CDT Trung Plasencia P.A.-C., M.S. LAB BLOOD NON ADD-ON Performing Organization Address City/State/ZIP Code Phon e Number [facility] [address] [place], [place] [address] [address] [facility] [place] [address] Laboratory Medicine and Pathology [address] [place] [address] Dr. [place]O (ABNORMAL) CMV DNA Detect / Quant, Plasma (11/07/2021 8:31 AM CDT) Patholo gist Method Time Signature CMV DNA <35 (A) Undetected 11/08/2021 [facility] Detect/Quant, IU/mL 7:22 PM CDT P Comment: Result in log IU/mL is <1.54. CMV DNA is detected, but level present i s <35 IU/mL (<1.54 log IU/mL). This assay cannot accurately quantify CMV DNA below this level. ----ADDITIONAL INFORMATION---- The quantification range of this assay i s 35 to 10,000,000 IU/mL (1.54 log to 7.00 log IU/mL). Testing was performed u sing the tika CMV test ([employer] with the tika 6800 System. Specimen Anatomical Collection Method Collection Time Receive d Time (Source) Location / / Volume Laterality Blood (Blood, 11/07/2021 8:31 AM 11/08/19 8:44 Venous) CDT PM CDT Trung Plasencia P.A.-C., M.S. LAB MICROBIOLOGY - BLOOD O RDERABLES Performing Organization Address City/[facility] Code Phon e Number [facility] [address] [place], [place] [address] [facility] [facility] [place] [address] Laboratory Medicine and Pathology [address] [place] [address] Dr. [place]O Glucose, Fasting (11/07/2021 8:31 AM CDT) P athologist Signature Glucose, P 98 70 - 100 11/07/2021 [facility] mg/dL 8:59 AM CDT Last Intake 6 hr 11/07/2021 [facility] 8:31 AM CDT Specimen Anatomical Collection Method Collection Time Receive d Time (Source) Location / / Volume Laterality Blood (Blood, 11/07/2021 8:31 AM 11/08/19 8:33 Venous) CDT AM CDT Trung Plasencia P.A.-C., M.S. LAB BLOOD NON ADD-ON Performing Organization Address City/State/ZIP Code Phon e Number [address] [address] [place] [address] System in [place] [address] (ABNORMAL) Comprehensive Metabolic Panel (11/07/2021 8:31 AM CDT) Analysis Performed At Patho logist Time Signature Potassium, P 4.0 3.6 - 5.2 11/07/2021 [facility] mmol/L 9:02 AM CDT Sodium, P 132 (L) 135 - 145 11/07/2021 [facility] mmol/L 9:02 AM CDT Chloride, P 95 (L) 98 - 107 11/07/2021 [facility] mmol/L 9:02 AM CDT Bicarbonate, P 24 22 - 29 11/07/2021 [facility] mmol/L 9:02 AM CDT Anion Gap, P 13 7 - 15 11/07/2021 [facility] 9:02 AM CDT BUN (Blood Urea 39 (H) 8 - 24 11/07/2021 [facility] Nitrogen), P mg/dL 9:02 AM CDT Creatinine 2.89 (H) 0.74 - 11/07/2021 [facility] 1.35 mg/dL 9:02 AM CDT eGFR-Black/Afri 25 (L) >=60 11/07/2021 [facility] can [place] mL/min/BSA 9:02 AM CDT Comment: ----ADDITIONAL INFORMATION---- Estimated GFR calculated using the 2009 CKD_EPI creatinine equation. eGFR Non-Black/ 21 (L) >=60 mL/min/BSA 11/07/2021 9:02 AM CDT [facility] [place] Comment: ----ADDITIONAL INFORMATION---- Estimated GFR calculated using the 2009 CKD_EPI creatinine equation. Calcium, Total, P 8.9 8.8 - 10.2 mg/dL 11/07/2021 9:02 AM CDT [facility] Glucose, P CANCELED mg/dL 11/07/2021 8:33 AM CDT [facility] Comment: Duplicate test request. Result canceled by the ancillary. Protein, Total, P 6.4 6.3 - 7.9 g/dL 11/07/2021 9:02 A M CDT [facility] Albumin, P 4.0 3.5 - 5.0 g/dL 11/07/2021 9:02 AM CDT C NFL Aspartate Aminotransferase (AST), 21 8 - 48 U/L 11/07 9:02 AM CDT [facility] P Alkaline Phosphatase, P 102 40 - 129 U/L 11/07/2021 9: 02 AM CDT [facility] Alanine Aminotransferase (ALT), P 17 7 - 55 U/L 11/07 9:02 AM CDT [facility] Bilirubin, Total, P 0.3 <=1.2 mg/dL 11/07/2021 9:02 AM CDT [facility] Specimen Anatomical Collection Method Collection Time Receive d Time (Source) Location / / Volume Laterality Blood (Blood, 11/07/2021 8:31 AM 11/08/19 8:33 Venous) CDT AM CDT Trung Plasencia P.A.-C., M.S. LAB BLOOD ADD-ON Performing Organization Address City/State/ZIP Code Phon e Number [address] [address] [place] [address] System [address] (ABNORMAL) CBC without Differential (11/07/2021 8:31 AM CDT) [facility] g[facility] Method Time Signature Hemoglobin 10.2 (L) 13.2 - 11/07/2021 [facility] 16.6 g/dL 8:58 AM CDT Hematocrit 32.1 (L) 38.3 - 11/07/2021 [facility] 48.6 % 8:58 AM CDT Erythrocytes 3.10 (L) 4.35 - 11/07/2021 [facility] 5.65 8:58 AM CDT x10(12)/L MCV 103.5 (H) 78.2 - 11/07/2021 [facility] 97.9 fL 8:58 AM CDT RBC Distrib Width 14.7 (H) 11.8 - 11/07/2021 [facility] 14.5 % 8:58 AM CDT Platelet Count 260 135 - 317 11/07/2021 [facility] x10(9)/L 8:58 AM CDT Leukocytes 5.6 3.4 - 9.6 11/07/2021 [facility] x10(9)/L 8:58 AM CDT Specimen Anatomical Collection Method Collection Time Receive d Time (Source) Location / / Volume Laterality Blood (Blood, 11/07/2021 8:31 AM 11/08/19 8:33 Venous) CDT AM CDT Trung Plasencia P.A.-C., M.S. LAB BLOOD ADD-ON Performing Organization Address City/State/ZIP Code Phon e Number [facility]- [address] [place] [address] [place] [address] [place] [address] System in [place] [address] [address] documented in this encounter Visit Diagnoses Diagnosis Transplant Liver (HCC) Medication Therapy Dialysis Patient Care Technician Not Anticoa gulant Colitis Cytomegalovirus (HCC) documented in this encounter Additional Health Concerns Assessment Noted Time PHQ-9 Depression Total Score: 4 11/28/2020 10:17 AM CD T documented as of this encounter Care Teams Glass Installer Relationship Specialty Start Date End Date Elsewhere, Pcp PCP - General Family Medicine 07/29/17 [facility] - Laboratory Medicine 04/12/[address] [address] documented as of this encounter
--- OUTSIDE RECORDS SUMMARY | 2022-04-13 12:00 | XMS_ITS | Encounter Summary ---
:[address] 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 [address] [place] [phone] 04/25/2022 Office Visit Otorhinolaryngology Dex Matta APRN, C.N.P., M.S.N. [address] [place] [phone] 05/08/2022 Appointment Laboratory Medicine Angélica Granger P.A.-C. [address] [place] [phone] 05/08/2022 Clinical Admitting/Central Communication Scheduling 05/10/2022 Appointment Radiology Jeremie Rose M.D. [address] [place] [phone] 05/10/2022 Comprehensive Visit Orthopedic Surgery Warner Graves M.D. [address] [place] [phone] 05/22/2022 Appointment Laboratory Medicine Angélica Granger P.A.-C. [address] [place] [phone] 06/05/2022 Appointment Laboratory Medicine Angélica Granger P.A.-C. [address] [place] [phone] 06/19/2022 Appointment Laboratory Medicine Angélica Granger P.A.-C. [address] [place] [phone] 07/03/2022 Appointment Laboratory Medicine Angélica Granger P.A.-C. [address] [place] [phone] 07/17/2022 Appointment Laboratory Medicine Angélica Granger P.A.-C. [address] [place] [phone] 07/31/2022 Appointment Laboratory Medicine Angélica Granger P.A.-C. [address] [place] [phone] 08/14/2022 Appointment Laboratory Medicine Angélica Granger P.A.-C. [address] [place] [phone] 08/28/2022 Appointment Laboratory Medicine Angélica Granger P.A.-C. [address] [place] [phone] documented as of this encounter Procedures Procedure Name Priority Date/Time Associated Comments Diagnosis DERMATOLOGY IMAGE Routine 11/05/2021 12:00 Result s for this EXAM AM CDT procedure are i n the results section. documented in this encounter Results Ears 506-Dermatology Image Exam (11/05/2021 12:00 AM CDT) Specimen (Source) Anatomical Location Collection Method / Collectio n Time Received Time / Laterality Volume Narrative IIMS - 11/05/2021 3:39 PM CDT This order has been created [...] as of this encounter Care Teams Supervisor Pipe Finishing Relationship Specialty Start Date End Date Elsewhere, Pcp PCP - General Family Medicine 07/29/17 [facility] - Laboratory Medicine 04/12/20 [place] [phone] documented as of this encounter
--- OUTSIDE RECORDS SUMMARY | 2022-04-13 12:00 | XMS_ITS | Encounter Summary ---
:1955 Author Organization [facility] Address [address] [place] [address] Care Team Providers Name Role Phone Elsewhere, Pcp Primary Care Provider Unavailable Encounter Details Date Type Department Care Team Description 11/14/2021 Hospital Encounter Department of Trung Plasencia Liver (HCC); Laboratory Medicine Edmundo Stern, Medicati on Therapy Jail Not Anticoagulant; in Jimmie Blake M.S. Colitis Cytomegalovirus (HCC) [address] [phone] [place], [place] [phone] (Work) [phone] Social History Tobacco Use Types Packs/Day Years [...] More than 4 times per year 12/15/2021 zoroastrian services? 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 predniSONE (DELTASONE) Take 3 tablets (7.5 42 tablet 0 10/2211/24/2021 2.5 mg tablet mg total) by mouth daily for 14 doses. alcohol swabs pads, Use as needed for 1500 each 2 12/10/2021 medicated diabetes control blood glucose [...] every morning tabletIndications: before breakfast. Transplant Liver ([facility]) lidocaine-prilocaine Apply 1 application 30 g 11 202102/07/2022 ([facility]) 2.5-2.5 % cream topically See Admin Instructions. 2 hours prior to dialysis. mycophenolate (CELLCEPT) Take 2 capsules 360 capsule 3 10/1902/15/2022 250 mg (500 mg total) by capsuleIndications: mouth 2 (two) times Transplant Liver ([facility]), a day. Do not Infection break, cut, or open Cytomegalovirus ([facility]), capsules. Medication Therapy Jail Not Anticoagulant NIFEdipine XL (PROCARDIA Take 1 tablet (30 270 tablet 3 09/2211/23/2021 XL) 30 mg 24 hr mg total) by mouth tabletIndications: daily. Hypertension And Chronic Kidney Disease Stage 4 ([facility]) pen needle, diabetic 1 Injection [...] Laboratory Medicine Angélica Granger P.A.-C. [address] [place] [phone] 04/25/2022 Office Visit Otorhinolaryngology Dex Matta, SQUILGEER, C.N.P., M.S.N. [address] [place] [phone] 05/08/2022 Appointment Laboratory Medicine Angélica Granger P.A.-CDemetrius [address] [place] [phone] 05/08/2022 Clinical Admitting/Central Communication Scheduling 05/10/2022 Appointment Radiology Jeremie Rose M.D. [address] [place] [phone] 05/10/2022 Comprehensive Visit Orthopedic Surgery Warner Graves M.D. [address] [place] [phone] 05/22/2022 Appointment Laboratory Medicine Angélica Granger P.A.-CDemetrius [address] [place] [phone] 06/05/2022 Appointment Laboratory Medicine Angélica Granger P.A.-C. [address] [place] [phone] 06/19/2022 Appointment Laboratory Medicine Angélica Granger P.A.-C. [address] [place] [phone] 07/03/2022 Appointment Laboratory Medicine Angélica Granger P.A.-C. [address] [place] [phone] 07/17/2022 Appointment Laboratory Medicine Angélica Granger P.A.-C. [address] [place] [phone] 07/31/2022 Appointment Laboratory Medicine Angélica Granger P.A.-C. [address] [place] [phone] 08/14/2022 Appointment Laboratory Medicine Angélica Granger P.A.-C. [address] [place] [phone] 08/28/2022 Appointment Laboratory Medicine Angélica Granger P.A.-C. [address] [place] [phone] documented as of this encounter Procedures Procedure Name Priority Date/Time Associated Diagnosis Comme nts CMV DNA DETECT/QUANT, Routine 11/14/2021 7:32 Transplant Liver (HCC) Results for this P AM CDT Medication Therapy procedure are in Jail Not the results Anticoagulant section. Colitis Cytomegalovirus (HCC) TACROLIMUS LEVEL, B Routine 11/14/2021 7:32 Transplant L iver (HCC) Results for this AM CDT Medication Therapy procedure are in Host Not the results Anticoagulant section. Colitis Cytomegalovirus (HCC) CBC WITHOUT Routine 11/14/2021 7:32 Transplant Liver (HCC) Results for this DIFFERENTIAL, B AM CDT Medication Therapy proced ure are in Jail Not the results Anticoagulant section. Colitis Cytomegalovirus (HCC) GLUCOSE, FASTING, S/P Routine 11/14/2021 7:32 Transplant Liver (HCC) Results for this AM CDT Medication Therapy procedure are in Jail Not the results Anticoagulant section. Colitis Cytomegalovirus (HCC) COMPREHENSIVE Routine 11/14/2021 7:32 Transplant Liver (HCC) Results for this METABOLIC PANEL, S/P AM CDT Medication Therapy p rocedure are in Jail Not the results Anticoagulant section. Colitis Cytomegalovirus (HCC) documented in this encounter Results (ABNORMAL) Tacrolimus, B (11/14/2021 7:32 AM CDT) athologist Signature Tacrolimus, B <1.0 (L) 5.0-15.0 11/15/2021 SDS (Trough) 10:11 AM CDT ng/mL Comment: ----ADDITIONAL INFORMATION---- Target steady-state trough concentration s vary depending on the type of transplant, concomitant immunosuppressio n, clinical/institutional protocols, and time post-transplant. Results should be interpreted in conjunction with this clinical information and any physic al signs/symptoms of rejection/toxicity. Testing performed by Liquid Chromatograp hy-Tandem Mass Spectrometry (LC-MS/MS). This test was developed and its performa nce characteristics determined by [facility] in a manner consistent with CLIA requirements. This test has not been cleared or approved by the U.S. Mer d and Drug Administration. Specimen Anatomical Collection Method Collection Time Receive d Time (Source) Location / / Volume Laterality Blood (Blood, 11/14/2021 7:32 AM 11/16/19 6:43 Venous) CDT AM CDT Trung Plasencia P.A.-C., M.S. LAB BLOOD NON ADD-ON Performing Organization Address City/State/ZIP Code Phon e Number [facility] [address] [place], [place] [address] [place] [address] [place] [address] Laboratory Medicine and Pathology [address] [place] (ABNORMAL) CMV DNA Detect / Quant, Plasma (11/14/2021 7:32 AM CDT) Patholo gist Method Time Signature CMV DNA <35 (A) Undetected 11/15/2021 [facility] Detect/Quant, IU/mL 5:52 PM CDT P Comment: Result in log [...] u sing the tika CMV test ([employer] with the tkia [id number] System. Specimen Anatomical Collection Method Collection Time Receive d Time (Source) Location / / Volume Laterality Blood (Blood, 11/14/2021 7:32 AM 11/16/19 7:39 Venous) CDT AM CDT Trung Plasencia P.A.-C., M.S. LAB MICROBIOLOGY - BLOOD O RDERABLES Performing Organization Address City/State/ZIP Code Phon e Number [facility] [address] [place], [place] [address] [facility] [place] [address] Laboratory Medicine and Pathology [address] [place] (ABNORMAL) Glucose, Fasting (11/14/2021 7:32 AM CDT) P athologist Signature Glucose, P 103 (H) 70 - 100 11/14/2021 [facility] mg/dL 8:18 AM CDT Last Intake 13 hr 11/14/2021 [facility] 7:32 AM CDT Specimen Anatomical Collection Method Collection Time Receive d Time (Source) Location / / Volume Laterality Blood (Blood, 11/14/2021 7:32 AM 11/15/19 7:33 Venous) CDT AM CDT Trung Plasencia P.A.-C., M.S. LAB BLOOD NON ADD-ON Performing Organization Address City/State/ZIP Code Phon e Number [address] [address] [place] [address] System in [place] [address] (ABNORMAL) Comprehensive Metabolic Panel (11/14/2021 7:32 AM CDT) Analysis Performed At Patho logist Time Signature Potassium, P 4.3 3.6 - 5.2 11/14/2021 [facility] mmol/L 8:20 AM CDT Sodium, P 131 (L) 135 - 145 11/14/2021 [facility] mmol/L 8:20 AM CDT Chloride, P 95 (L) 98 - 107 11/14/2021 [facility] mmol/L 8:20 AM CDT Bicarbonate, P 24 22 - 29 11/14/2021 [facility] mmol/L 8:20 AM CDT Anion Gap, P 12 7 - 15 11/14/2021 [facility] 8:20 AM CDT BUN (Blood Urea 55 (H) 8 - 24 11/14/2021 [facility] Nitrogen), P mg/dL 8:20 AM CDT Creatinine 3.43 (H) 0.74 - 11/14/2021 [facility] 1.35 mg/dL 8:20 AM CDT eGFR-Black/Afri 20 (L) >=60 11/14/2021 [facility] can [place] mL/min/BSA 8:20 AM CDT Comment: ----ADDITIONAL INFORMATION---- Estimated GFR calculated using the 2009 CKD_EPI creatinine equation. eGFR Non-Black/ 17 (L) >=60 mL/min/BSA 11/14/2021 8:20 AM CDT [facility] [place] Comment: ----ADDITIONAL INFORMATION---- Estimated GFR calculated using the 2009 CKD_EPI creatinine equation. Calcium, Total, P 9.1 8.8 - 10.2 mg/dL 11/14/2021 8:20 AM CDT [facility] Glucose, P CANCELED mg/dL 11/14/2021 7:34 AM CDT [facility] Comment: Duplicate test request. Result canceled by the ancillary. Protein, Total, P 6.4 6.3 - 7.9 g/dL 11/14/2021 8:20 A M CDT [facility] Albumin, P 4.2 3.5 - 5.0 g/dL 11/14/2021 8:20 AM CDT C NFL Aspartate Aminotransferase (AST), 22 8 - 48 U/L 11/14 8:20 AM CDT [facility] P Alkaline Phosphatase, P 105 40 - 129 U/L 11/14/2021 8: 20 AM CDT [facility] Alanine Aminotransferase (ALT), P 16 7 - 55 U/L 11/14 8:20 AM CDT [facility] Bilirubin, Total, P 0.4 <=1.2 mg/dL 11/14/2021 8:20 AM CDT [facility] Specimen Anatomical Collection Method Collection Time Receive d Time (Source) Location / / Volume Laterality Blood (Blood, 11/14/2021 7:32 AM 11/15/19 7:33 Venous) CDT AM CDT Trung Plasencia P.A.-C. M.S. LAB BLOOD ADD-ON Performing Organization Address City/State/[facility] Code Phon e Number [facility] [address] [place] [id number] [place] [address] [address] (ABNORMAL) CBC without Differential (11/14/2021 7:32 AM CDT) [facility] gist Method Time Signature Hemoglobin 10.0 (L) 13.2 - 11/14/2021 [facility] 16.6 g/dL 8:02 AM CDT Hematocrit 31.2 (L) 38.3 - 11/14/2021 [facility] 48.6 % 8:02 AM CDT Erythrocytes 3.02 (L) 4.35 - 11/14/2021 [facility] 5.65 8:02 AM CDT x10(12)/L MCV 103.3 (H) 78.2 - 11/14/2021 [facility] 97.9 fL 8:02 AM CDT RBC Distrib Width 14.4 11.8 - 11/14/2021 [facility] 14.5 % 8:02 AM CDT Platelet Count 296 135 - 317 11/14/2021 [facility] x10(9)/L 8:02 AM CDT Leukocytes 6.1 3.4 - 9.6 11/14/2021 [facility] x10(9)/L 8:02 AM CDT Specimen Anatomical Collection Method Collection Time Receive d Time (Source) Location / / Volume Laterality Blood (Blood, 11/14/2021 7:32 AM 05/25/20 22 7:33 Venous) CDT AM CDT Trung Plasencia P.A.-C. M.S. LAB BLOOD ADD-ON Performing Organization Address City/State/[facility] Code Phon e Number [facility]- [address] [place] [address] Blvd [place], [place] [id number] [place] [address] [place] [address] System in [place] [address] [address] documented in this encounter Visit Diagnoses Diagnosis Transplant Liver (HCC) Medication Therapy Jail Not Anticoa gulant Colitis Cytomegalovirus (HCC) documented in this encounter Additional Health Concerns Assessment Noted Time PHQ-9 Depression Total Score: 4 11/28/2020 10:17 AM CD T documented as of this encounter Care Teams Ophthalmic Nurse Relationship Specialty Start Date End Date Elsewhere, Pcp PCP - General Family Medicine 07/29/17 [facility] - Laboratory Medicine 04/12/20 [place] [phone] documented as of this encounter
--- OUTSIDE RECORDS SUMMARY | 2022-04-13 12:00 | XMS_ITS | Encounter Summary ---
:1955 Author Organization [facility] Address [address] [place] [address] Care Team Providers Name Role Phone Elsewhere, Pcp Primary Care Provider Unavailable Encounter Details Date Type Department Care Team Description 11/22/2021 Clinical Communication Department of Prescheduling, Orthopedic Surgery in [place], [place] [address] [place] [address] Social History Tobacco Use Types Packs/Day Years [...] More than 4 times per year 12/15/2021 moravian services? 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 [address] [place] [phone] 04/25/2022 Office Visit Otorhinolaryngology Dex Matta, RAMONA, C.N.P., M.S.N. [address] [place] [phone] 05/08/2022 Appointment Laboratory Medicine Angélica Granger P.A.-CDemetrius [address] [place] [phone] 05/08/2022 Clinical Admitting/Central Communication Scheduling 05/10/2022 Appointment Radiology Jeremie Rose M.D. [address] [place] [phone] 05/10/2022 Comprehensive Visit Orthopedic Surgery Warner Graves M.D. [address] [place] [phone] 05/22/2022 Appointment Laboratory Medicine Angélica Granger P.A.-CDemetrius [address] [place] [address] [phone] 06/05/2022 Appointment Laboratory Medicine Angélica Granger P.A.-C. [address] [place] [phone] 06/19/2022 Appointment Laboratory Medicine Angélica Granger P.A.-C. [address] [place] [phone] 07/03/2022 Appointment Laboratory Medicine Angélica Granger P.A.-C. [address] [place] [phone] 07/17/2022 Appointment Laboratory Medicine Angélica Granger P.A.-C. [address] [place] [phone] 07/31/2022 Appointment Laboratory Medicine Angélica Granger P.A.-C. [address] [place] [phone] 08/14/2022 Appointment Laboratory Medicine Angélica Granger P.A.-C. [address] [place] [phone] 08/28/2022 Appointment Laboratory Medicine Angélica Granger P.A.-C. [address] [place] [phone] documented as of this encounter Visit Diagnoses Not on filedocumented in this encounter Additional Health Concerns Infection Onset Date Last Indicated Resolved Time COVID19 Pending 12/05/2021 12/05/2021 12/05/2021 6:33 PM CDT COVID19 Pending 12/07/2021 12/07/2021 12/07/2021 1:40 PM CDT Assessment Noted Time PHQ-9 Depression Total Score: 4 11/28/2020 10:17 AM CD T documented as of this encounter Care Teams Exhaust Emissions Automotive Technician Relationship Specialty Start Date End Date Elsewhere, Pcp PCP - General Family Medicine 07/29/[address] [facility] - Laboratory Medicine 04/12/20 [place] [phone] documented as of this encounter
--- OUTSIDE RECORDS SUMMARY | 2022-04-13 12:00 | XMS_ITS | Encounter Summary ---
:1955 Author Organization [facility] Address [address] [place] [address] Care Team Providers Name Role Phone Elsewhere, Pcp Primary Care Provider Unavailable Encounter Details Date Type Department Care Team Description 11/21/2021 Hospital Encounter Department of Trung Plasencia Liver (HCC); Laboratory Medicine Edmundo Stern, Medicati on Therapy Assisted Not Anticoagulant; in Jimmie Blake M.S. 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 Transplant Liver ([facility]) lidocaine-prilocaine Apply 1 application 30 g 11 202102/07/2022 ([facility]) 2.5-2.5 % cream topically See Admin Instructions. 2 hours prior to dialysis. mycophenolate (CELLCEPT) Take 2 capsules 360 capsule 3 10/1902/15/2022 250 mg (500 mg total) by capsuleIndications: mouth 2 (two) times Transplant Liver ([facility]), a day. Do not Infection break, cut, or open Cytomegalovirus ([facility]), capsules. Medication Therapy Assisted Not Anticoagulant NIFEdipine XL (PROCARDIA Take 1 tablet (30 270 tablet 3 09/2211/23/2021 XL) 30 mg 24 hr mg total) by mouth tabletIndications: daily. Hypertension And Chronic Kidney Disease Stage 4 ([facility]) pen needle, diabetic 1 Injection daily. 90 [...] Laboratory Medicine Angélica Granger P.A.-C. [address] [place] [phone] 04/25/2022 Office Visit Otorhinolaryngology Dex Matta, MELTING SUPERVISOR, C.N.P., M.S.N. [address] [place] [phone] 05/08/2022 Appointment Laboratory Medicine Angélica Granger P.A.-CDemetrius [address] [place] [phone] 05/08/2022 Clinical Admitting/Central Communication Scheduling 05/10/2022 Appointment Radiology Jeremie Rose M.D. [address] [place] [phone] 05/10/2022 Comprehensive Visit Orthopedic Surgery Warner Graves M.D. [address] [place] [phone] 05/22/2022 Appointment Laboratory Medicine Angélica Granger P.A.-CDemetrius [address] [place] [phone] 06/05/2022 Appointment Laboratory Medicine Angélica Granger P.A.-C. [address] [place] [phone] 06/19/2022 Appointment Laboratory Medicine Angélica Granger P.A.-C. [address] [place] [phone] 07/03/2022 Appointment Laboratory Medicine Angélica Granger P.A.-C. [address] [place] [phone] 07/17/2022 Appointment Laboratory Medicine Angélica Granger P.A.-C. [address] [place] [phone] 07/31/2022 Appointment Laboratory Medicine Angélica Granger P.A.-C. [address] [place] [phone] 08/14/2022 Appointment Laboratory Medicine Angélica Granger P.A.-C. [address] [place] [phone] 08/28/2022 Appointment Laboratory Medicine Angélica Granger P.A.-C. [address] [place] [phone] documented as of this encounter Procedures Procedure Name Priority Date/Time Associated Diagnosis Comme nts CMV DNA DETECT/QUANT, Routine 11/21/2021 8:02 Transplant Liver (HCC) Results for this P AM CDT Medication Therapy procedure are in Assisted Not the results Anticoagulant section. Colitis Cytomegalovirus (HCC) TACROLIMUS LEVEL, B Routine 11/21/2021 8:02 Transplant L iver (HCC) Results for this AM CDT Medication Therapy procedure are in Library Media Assistant Not the results Anticoagulant section. Colitis Cytomegalovirus (HCC) CBC WITHOUT Routine 11/21/2021 8:02 Transplant Liver (HCC) Results for this DIFFERENTIAL, B AM CDT Medication Therapy proced ure are in Assisted Not the results Anticoagulant section. Colitis Cytomegalovirus (HCC) GLUCOSE, FASTING, S/P Routine 11/21/2021 8:02 Transplant Liver (HCC) Results for this AM CDT Medication Therapy procedure are in Assisted Not the results Anticoagulant section. Colitis Cytomegalovirus (HCC) COMPREHENSIVE Routine 11/21/2021 8:02 Transplant Liver (HCC) Results for this METABOLIC PANEL, S/P AM CDT Medication Therapy p rocedure are in Assisted Not the results Anticoagulant section. Colitis Cytomegalovirus (HCC) documented in this encounter Results (ABNORMAL) Tacrolimus, B (11/21/2021 8:02 AM CDT) athologist Signature Tacrolimus, B <1.0 (L) 5.0-15.0 11/22/2021 SDSC (Trough) 11:07 AM CDT ng/mL Comment: ----ADDITIONAL INFORMATION---- Target steady-state trough concentration s vary depending on the type of transplant, concomitant immunosuppressio n, clinical/institutional protocols, and time post-transplant. Results should be interpreted in conjunction with this clinical information and any physic al signs/symptoms of rejection/toxicity. Testing performed by Liquid Chromatograp hy-Tandem Mass Spectrometry (LC-MS/MS). This test was developed and its performa nce characteristics determined by [facility] in a manner consistent with CLIA requirements. This test has not been cleared or approved by the U.S. Mer d and Drug Administration. Specimen Anatomical Collection Method Collection Time Receive d Time (Source) Location / / Volume Laterality Blood (Blood, 11/21/2021 8:02 AM 11/23/19 22 7:08 Venous) CDT AM CDT Trung Plasencia P.A.-C., M.S. LAB BLOOD NON ADD-ON Performing Organization Address City/State/ZIP Code Phon e Number [facility] [address] [place], [place] [address] [facility] [place] [address] Laboratory Medicine and Pathology [address] [place] (ABNORMAL) CMV DNA Detect / Quant, Plasma (11/21/2021 8:02 AM CDT) Patholo gist Method Time Signature CMV DNA <35 (A) Undetected 11/22/2021 [facility] Detect/Quant, IU/mL 2:12 PM CDT P Comment: Result in log [...] u sing the tika CMV test ([employer] with the tika 6800 System. Specimen Anatomical Collection Method Collection Time Receive d Time (Source) Location / / Volume Laterality Blood (Blood, 11/21/2021 8:02 AM 11/23/19 22 7:13 Venous) CDT AM CDT Trung Plasencia P.A.-C., M.S. LAB MICROBIOLOGY - BLOOD O RDERABLES Performing Organization Address City/State/ZIP Code Phon e Number [facility] [address] [place], [place] [address] SU[facility] [place] [address] Laboratory Medicine and Pathology [address] [place] [address] Dr. [place] (ABNORMAL) Glucose, Fasting (11/21/2021 8:02 AM CDT) P athologist Signature Glucose, P 117 (H) 70 - 100 11/21/2021 [facility] mg/dL 8:48 AM CDT Last Intake 12 hr 11/21/2021 [facility] 8:03 AM CDT Specimen Anatomical Collection Method Collection Time Receive d Time (Source) Location / / Volume Laterality Blood (Blood, 11/21/2021 8:02 AM 11/22/19 22 8:04 Venous) CDT AM CDT Trung Plasencia P.A.-C., M.S. LAB BLOOD NON ADD-ON Performing Organization Address City/State/ZIP Code Phon e Number [address] [address] [place] [address] System in [place] [address] (ABNORMAL) Comprehensive Metabolic Panel (11/21/2021 8:02 AM CDT) Analysis Performed At [facility] Time Signature Potassium, P 4.0 3.6 - 5.2 11/21/2021 [facility] mmol/L 8:50 AM CDT Sodium, P 133 (L) 135 - 145 11/21/2021 [facility] mmol/L 8:50 AM CDT Chloride, P 98 98 - 107 11/21/2021 [facility] mmol/L 8:50 AM CDT Bicarbonate, P 24 22 - 29 11/21/2021 [facility] mmol/L 8:50 AM CDT Anion Gap, P 11 7 - 15 11/21/2021 [facility] 8:50 AM CDT BUN (Blood Urea 27 (H) 8 - 24 11/21/2021 [facility] Nitrogen), P mg/dL 8:50 AM CDT Creatinine 3.22 (H) 0.74 - 11/21/2021 [facility] 1.35 mg/dL 8:50 AM CDT eGFR-Black/Afri 22 (L) >=60 11/21/2021 [facility] can Peruvian mL/min/BSA 8:50 AM CDT Comment: ----ADDITIONAL INFORMATION---- Estimated GFR calculated using the 2009 CKD_EPI creatinine equation. eGFR Non-Black/ 19 (L) >=60 mL/min/BSA 11/21/2021 8:50 AM CDT [facility] Peruvian Comment: ----ADDITIONAL INFORMATION---- Estimated GFR calculated using the 2009 CKD_EPI creatinine equation. Calcium, Total, P 8.9 8.8 - 10.2 mg/dL 11/21/2021 8:50 AM CDT [facility] Glucose, P CANCELED mg/dL 11/21/2021 8:04 AM CDT CN[facility] Comment: Duplicate test request. Result canceled by the ancillary. Protein, Total, P 6.2 (L) 6.3 - 7.9 g/dL 11/21/2021 8:50 A M CDT [facility] Albumin, P 4.1 3.5 - 5.0 g/dL 11/21/2021 8:50 AM CDT C NFL Aspartate Aminotransferase 23 8 - 48 U/L 11/21/2021 8 :50 AM CDT [facility] (AST), P Alkaline Phosphatase, P 105 40 - 129 U/L 11/21/2021 8: 50 AM CDT [facility] Alanine Aminotransferase 22 7 - 55 U/L 11/21/2021 8:5 0 AM CDT [facility] (ALT), P Bilirubin, Total, P 0.3 <=1.2 mg/dL 11/21/2021 8:50 AM CDT [facility] Specimen Anatomical Collection Method Collection Time Receive d Time (Source) Location / / Volume Laterality Blood (Blood, 11/21/2021 8:02 AM 11/22/19 22 8:04 Venous) CDT AM CDT Trung Plasencia P.A.-C. M.S. LAB BLOOD ADD-ON Performing Organization Address City/State/[facility] Code Phon e Number [address] [address] [place] [address] [address] (ABNORMAL) CBC without Differential (11/21/2021 8:02 AM CDT) [facility] gist Method Time Signature Hemoglobin 9.9 (L) 13.2 - 11/21/2021 [facility] 16.6 g/dL 8:07 AM CDT Hematocrit 30.8 (L) 38.3 - 11/21/2021 [facility] 48.6 % 8:07 AM CDT Erythrocytes 2.98 (L) 4.35 - 11/21/2021 [facility] 5.65 8:07 AM CDT x10(12)/L MCV 103.4 (H) 78.2 - 11/21/2021 [facility] 97.9 fL 8:07 AM CDT RBC Distrib Width 14.1 11.8 - 11/21/2021 [facility] 14.5 % 8:07 AM CDT Platelet Count 293 135 - 317 11/21/2021 [facility] x10(9)/L 8:07 AM CDT Leukocytes 5.6 3.4 - 9.6 11/21/2021 [facility] x10(9)/L 8:07 AM CDT Specimen Anatomical Collection Method Collection Time Receive d Time (Source) Location / / Volume Laterality Blood (Blood, 11/21/2021 8:02 AM 11/22/19 22 8:04 Venous) CDT AM CDT Trung Plasencia P.A.-C. M.S. LAB BLOOD ADD-ON Performing Organization Address City/State/[facility] Code Phon e Number [facility]- [address] [place] [address] [place] [address] [place] [address] System in [place] [address] [address] documented in this encounter Visit Diagnoses Diagnosis Transplant Liver (HCC) Medication Therapy Library Media Assistant Not Anticoa gulant Colitis Cytomegalovirus (HCC) documented in this encounter Additional Health Concerns Assessment Noted Time PHQ-9 Depression Total Score: 4 11/28/2020 10:17 AM CD T documented as of this encounter Care Teams Spray Drier Relationship Specialty Start Date End Date Elsewhere, Pcp PCP - General Family Medicine 07/29/17 [facility] - Laboratory Medicine 04/12/[address] [address] documented as of this encounter
--- OUTSIDE RECORDS SUMMARY | 2022-04-13 12:00 | XMS_ITS | Encounter Summary ---
:1955 Author Organization [facility] Address [address] [place] [address] Care Team Providers Name Role Phone Elsewhere, Pcp Primary Care Provider Unavailable Reason for Visit Reason Comments Labs Only Encounter Details Date Type Department Care Team Description 11/22/2021 Clinical Communication Irena Gamez [facility] Labs Only Center for R, R.N. Transplantation and [address] [place] [address] Clinical Regeneration in [place], [place] [address] [place] [address] [place] [address] (Work) [phone] Social History Tobacco Use Types Packs/Day Years [...] or relatives? How often do you attend orthodoxy or More than 4 times per year 12/15/2021 yazidism services? 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 - 11/26/2021 1:[address] Gonzalez, I received a call from Bruce regarding the recommended tacrolimus dose increase. He is concerned about losing remaining kidney infection. 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 He had been maintained on triple immunosuppression. Bruce increased his tacrolimus from 0.5 mg BID to 1 mg BID and not the recommended by Dr. Wan. He states that he is currently taking 1 mg BID tac, 500 mg BID MMF, and 5 mg daily of prednisone. He has been on dialysis for 6 months. Bruce is scheduled to repeat labs this Friday and then will be here for his annual starting December 03. Since he had been on 0.5 mg BID and not the stated 1 mg BID per the lab review, would it be ok for him to continue on the 1 mg BID with labs on Friday? Anastasia Rasheed (Covering for Yolie) Telephone Encounter - Yolie Dubois R.N. - 11/23/2021 4:27 PM CDT Provider who reviewed results: Dr Wan Recommendations: Increase tac dose by 1 mg BID= 2 mg BID. Once levels are detectable, can stop MMF and continue low dose prednisone. Labs are due: 1 week Patient Online Services message was initiated by a [facility] Registered Nurse for report of test results and recommendations. Telephone Encounter - Yolie Dubois R.N. - 11/22/2021 3:39 PM CDT Please review labs below. Bruce [...] on dialysis days on 10/11 for CMV reactivation Current Medications & Recent Dose Changes: Tacrolimus 1 mg BID Mycophenolate 500 mg BID (Decreased to 250 mg BID 10/11) Prednisone 5 mg daily Labs: Recent Labs 11/21/21 0802 11/14/21 0732 11/07/21 0831 10/31/21 0828 10/24/21 0900 10/17/21 0838 TACROLIMUS <1.0 L <1.0 L <1.0 L <1.0 L <1.0 L 1.5 L Recent Labs 11/21/21 0802 11/14/21 0732 11/07/21 0831 10/17/21 0838 10/15/21 0808 10/15/21 0439 10/14/21 0447 10/13/21 0519 10/12/21 1612 10/12/21 1451 10/12/21 1451 HGB 9.9 L 10.0 L 10.2 L < > 8.2 L -- 7.9 L 8.0 L -- -- 8.8 L HCT 30.8 L 31.2 L 32.1 L < > 24.9 L -- 24.1 L 24.7 L 25.0 L -- 27.0 L WBC 5.6 6.1 5.6 < > 3.9 -- 4.4 4.4 -- -- 7.2 NEUTROPHILS -- -- -- -- 2.81 -- 3.21 SeeComment -- -- 6.42 PLT 293 296 260 < > 181 -- 178 166 -- -- 182 NA 133 L 131 L 132 L < > 130 L -- 127 L 128 L 124 L < > 124 L KPLASMA 4.0 4.3 4.0 < > -- -- -- -- -- -- 4.7 KBLOOD -- -- -- -- -- -- -- -- 4.7 -- -- KSERUM -- -- -- -- 3.8 -- 4.0 3.8 -- -- -- MG -- -- -- -- -- 2.3 -- -- -- -- -- GLUCOSE CANCELED 117 H CANCELED 103 H CANCELED 98 < > 131 -- 228 H 216 H -- < > 435 Crit H HGBA1C -- -- -- -- -- -- -- 7.4 H -- -- -- BUN 27 H 55 H 39 H < > 63 H -- 58 H 45 H -- < > 35 H CREATININE 3.22 H 3.43 H 2.89 H < > 4.41 H -- 4.13 H 3.39 H -- < > 2.48 H ALKPHOS 105 105 102 < > -- -- -- 86 -- -- 101 AST 23 22 21 < > -- -- -- 14 -- -- 17 ALT 22 16 17 < > -- -- -- 17 -- -- 21 BILITOT 0.3 0.4 0.3 < > -- -- -- 0.2 -- -- 0.5 BILIDIR -- -- -- -- -- -- -- -- -- -- <0.2 ALBUMIN 4.1 4.2 4.0 < > 3.7 -- 3.5 3.4 L -- -- 3.5 < > = values in this interval not displayed. Serologies: Recent Labs 11/21/21 0802 11/14/21 0732 11/07/21 0831 10/31/21 0828 CMVQUANT <35 A <35 A <35 A <35 A No results for [...] R.N. *All labs are now found in [facility] - Lab - Flowsheets. For further review of labs, please review there or under Synopsis* documented in this encounter Plan of Treatment Upcoming Encounters Date Type Specialty Care Team Description 04/24/2022 Appointment Laboratory Medicine Angélica Granger P.A.-C. [address] [place] [phone] 04/25/2022 Office Visit Otorhinolaryngology Dex Matta APRN, C.N.P., M.S.N. [address] [place] [phone] 05/08/2022 Appointment Laboratory Medicine Angélica Granger P.A.-C. [address] [place] [phone] 05/08/2022 Clinical Admitting/Central Communication Scheduling 05/10/2022 Appointment Radiology Jeremie Rose M.D. [address] [place] [phone] 05/10/2022 Comprehensive Visit Orthopedic Surgery Warner Graves M.D. [address] [place] [phone] 05/22/2022 Appointment Laboratory Medicine Angélica Granger P.A.-C. [address] [place] [phone] 06/05/2022 Appointment Laboratory Medicine Angélica Granger P.A.-C. [address] [place] [phone] 06/19/2022 Appointment Laboratory Medicine Angélica Granger P.A.-C. [address] [place] [phone] 07/03/2022 Appointment Laboratory Medicine Angélica Granger P.A.-C. [address] [place] [phone] 07/17/2022 Appointment Laboratory Medicine Angélica Granger P.A.-C. [address] [place] [phone] 07/31/2022 Appointment Laboratory Medicine Angélica Granger P.A.-C. [address] [place] [phone] 08/14/2022 Appointment Laboratory Medicine Angélica Granger P.A.-C. [address] [place] [phone] 08/28/2022 Appointment Laboratory Medicine Angélica Granger P.A.-C. 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
--- OUTSIDE RECORDS SUMMARY | 2022-04-13 12:00 | XMS_ITS | Encounter Summary ---
:1955 Author Organization [facility] Address [address] [place] [address] Care Team Providers Name Role Phone Elsewhere, Pcp Primary Care Provider Unavailable Reason for Visit Reason Comments Med Management Encounter Details Date Type Department Care Team Description 11/26/2021 Clinical Communication Irena Gamez Med Management Center for R, R.N. 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 - 11/26/2021 12:55 PM CDT SUBJECTIVE CHIEF COMPLAINT / REASON FOR CALL Med Management Information Discussed I returned Bruce's call. He is concerned about losing remaining kidney [...] here for his annual starting December 03. PLAN I will review labs again with Dr. Gonzalez and will let Bruce know the recommendations. Disposition/Recommendation: self-care is appropriate at this time, patient encouraged to call back with questions Information/Education: patient/caller able to teach back Caller agreeable to plan of care: yes The following references were used: nursing clinical judgement Telephone Encounter - Yolie Stone - 11/26/2021 11:10 AM CDT Pt requests call back. Would like to speak to Yolie regarding Tacrolimus. Please call back. documented in this encounter Plan of Treatment Upcoming Encounters Date Type Specialty Care Team Description 04/24/2022 Appointment Laboratory Medicine Angélica Granger P.A.-C. [address] [place] [phone] 04/25/2022 Office Visit Otorhinolaryngology Dex Matta APRN, C.N.P., M.S.N. [address] [place] [phone] 05/08/2022 Appointment Laboratory Medicine Angélica Granger P.A.-C. [address] [place] [phone] 05/08/2022 Clinical Admitting/Central Communication Scheduling 05/10/2022 Appointment Radiology Jeremie Rose M.D. [address] [place] [phone] 05/10/2022 Comprehensive Visit Orthopedic Surgery Warner Graves M.D. [address] [place] [phone] 05/22/2022 Appointment Laboratory Medicine Angélica Granger P.A.-C. [address] [place] [phone] 06/05/2022 Appointment Laboratory Medicine Angélica Granger P.A.-C. [address] [place] [phone] 06/19/2022 Appointment Laboratory Medicine Angélica Granger P.A.-C. [address] [place] [phone] 07/03/2022 Appointment Laboratory Medicine Angélica Granger P.A.-C. [address] [place] [phone] 07/17/2022 Appointment Laboratory Medicine Angélica Granger P.A.-C. [address] [place] [phone] 07/31/2022 Appointment Laboratory Medicine Angélica Granger P.A.-C. [address] [place] [phone] 08/14/2022 Appointment Laboratory Medicine Angélica Granger P.A.-C. [address] [place] [phone] 08/28/2022 Appointment Laboratory Medicine Angélica Granger P.A.-C. [address] [place] [phone] documented as of this encounter Visit Diagnoses Not on filedocumented in this encounter Additional Health Concerns Assessment Noted Time PHQ-9 Depression Total Score: 4 11/28/2020 10:17 AM CD T documented as of this encounter Care Teams Tenoner Operator Relationship Specialty Start Date End Date Elsewhere, Pcp PCP - General Family Medicine 07/29/17 [facility] - Laboratory Medicine 04/12/[address] [address] documented as of this encounter
--- OUTSIDE RECORDS SUMMARY | 2022-04-13 12:00 | XMS_ITS | Encounter Summary ---
:1955 Author Organization [facility] Address [address] [place] [address] Care Team Providers Name Role Phone Elsewhere, Pcp Primary Care Provider Unavailable Encounter Details Date Type Department Care Team Description 11/23/2021 Orders Only Division of Nephrology and Elissa Wilcox A PRN, Hypertension, Mosque C.N.P. 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 [address] [place] [phone] 04/25/2022 Office Visit Otorhinolaryngology Dex Matta APRN, C.N.P., M.S.N. [address] [place] [phone] 05/08/2022 Appointment Laboratory Medicine Angélica Granger P.A.-C. [address] [place] [phone] 05/08/2022 Clinical Admitting/Central Communication Scheduling 05/10/2022 Appointment Radiology Jeremie Rose M.D. [address] [place] [phone] 05/10/2022 Comprehensive Visit Orthopedic Surgery Warner Graves M.D. [address] [place] [phone] 05/22/2022 Appointment Laboratory Medicine Angélica Granger P.A.-C. [address] [place] [phone] 06/05/2022 Appointment Laboratory Medicine Angélica Granger P.A.-C. [address] [place] [phone] 06/19/2022 Appointment Laboratory Medicine Angélica Granger P.A.-C. [address] [place] [phone] 07/03/2022 Appointment Laboratory Medicine Angélica Granger P.A.-C. [address] [place] [phone] 07/17/2022 Appointment Laboratory Medicine Angélica Granger P.A.-C. [address] [place] [phone] 07/31/2022 Appointment Laboratory Medicine Angélica Granger P.A.-C. [address] [place] [phone] 08/14/2022 Appointment Laboratory Medicine Angélica Granger P.A.-C. [address] [place] [phone] 08/28/2022 Appointment Laboratory Medicine Angélica Granger P.A.-C. [address] [place] [phone] documented as of this encounter Visit Diagnoses Not on filedocumented in this encounter Additional Health Concerns Infection Onset Date Last Indicated Resolved Time COVID19 Pending 12/05/2021 12/05/2021 12/05/2021 6:33 PM CDT COVID19 Pending 12/07/2021 12/07/2021 12/07/2021 1:40 PM CDT Assessment Noted Time PHQ-9 Depression Total Score: 4 11/28/2020 10:17 AM CD T documented as of this encounter Care Teams Electrician Supervisor Substation Relationship Specialty Start Date End Date Elsewhere, Pcp PCP - General Family Medicine 07/29/17 [facility] - Laboratory Medicine 04/12/20 [place] [phone] documented as of this encounter
--- OUTSIDE RECORDS SUMMARY | 2022-04-13 12:00 | XMS_ITS | Encounter Summary ---
:1955 Author Organization [facility] Address [address] [place] [address] Care Team Providers Name Role Phone Elsewhere, Pcp Primary Care Provider Unavailable Encounter Details Date Type Department Care Team Description 11/15/2021 Clinical Communication Department of Cora Julian Dermatology in , R.N. 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 sent at 11/15/2021 4:14 PM CDT ----- Regarding: RE: Date and TIme HI Betty, Please offer 01/04 with Saldivar in the held 1130 mohs slot Thank you Cora ----- Message ----- From: Betty Gutierrez Sent: 11/12/2021 5:46 PM CDT To: Rst Danish Rogo Surg Charge Subject: Date and TIme Good Afternoon Could you please advise a date to offer patient for a Mohs procedure? He does not feel comfortable waiting till January even tho I told him he was ok to wait that long. Will wait if he has to tho. FINAL DIAGNOSIS A. ??Right conchal bowl, Skin shave biopsy: ??Squamous cell carcinoma in situ, involving biopsy borders Thank you very much Betty documented in this encounter Plan of Treatment Upcoming Encounters Date Type Specialty Care Team Description 04/24/2022 Appointment Laboratory Medicine Angélica Granger, PDemetriusADurgaCDemetrius [address] [place] [address] 04/25/2022 Office Visit Otorhinolaryngology Dex Matta, RAMONA, C.N.P., M.S.N. [address] [place] [phone] 05/08/2022 Appointment Laboratory Medicine Angélica Granger P.A.-C. [address] [place] [phone] 05/08/2022 Clinical Admitting/Central Communication Scheduling 05/10/2022 Appointment Radiology Jeremie Rose M.D. [address] [place] [phone] 05/10/2022 Comprehensive Visit Orthopedic Surgery Warner Graves M.D. [address] [place] [phone] 05/22/2022 Appointment Laboratory Medicine Angélica Granger P.A.-C. [address] [place] [phone] 06/05/2022 Appointment Laboratory Medicine Angélica Granger P.A.-C. [address] [place] [phone] 06/19/2022 Appointment Laboratory Medicine Angélica Granger P.A.-C. [address] [place] [phone] 07/03/2022 Appointment Laboratory Medicine Angélica Granger P.A.-C. [address] [place] [phone] 07/17/2022 Appointment Laboratory Medicine Angélica Granger P.A.-C. [address] [place] [phone] 07/31/2022 Appointment Laboratory Medicine Angélica Granger P.A.-C. [address] [place] [phone] 08/14/2022 Appointment Laboratory Medicine Angélica Granger P.A.-C. [address] [place] [phone] 08/28/2022 Appointment Laboratory Medicine Angélica Granger P.A.-C. [address] [place] [address] documented as of this encounter Visit Diagnoses Not on filedocumented in this encounter Additional Health Concerns Assessment Noted Time PHQ-9 Depression Total Score: 4 11/28/2020 10:17 AM CD T documented as of this encounter Care Teams Rn Invasive Relationship Specialty Start Date End Date Elsewhere, Pcp PCP - General Family Medicine 07/29/17 [facility] - Laboratory Medicine 04/12/[address] [address] documented as of this encounter
--- OUTSIDE RECORDS SUMMARY | 2022-04-13 12:00 | XMS_ITS | Encounter Summary ---
:1955 Author Organization [facility] Address [address] [place] [address] Care Team Providers Name Role Phone Elsewhere, Pcp Primary Care Provider Unavailable Encounter Details Date Type Department Care Team Description 11/13/2021 Clinical Communication Irena Gamez [facility] for R, R.N. Transplantation and [address] [place] [address] Clinical [facility] in [place], [place] [address] [place] [address] [place] [address] (Work) [phone] Social History Tobacco Use Types Packs/Day Years [...] More than 4 times per year 12/15/2021 sabianism services? 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 Bruce [...] Prednisone 5 mg daily Labs: Recent Labs 11/07/21 0831 10/31/21 0828 10/24/21 0900 10/17/21 0838 10/15/21 0808 10/13/21 0850 TACROLIMUS <1.0 L <1.0 L <1.0 L 1.5 L 2.0 L 2.7 L Recent Labs 11/07/21 0831 10/31/21 0828 10/24/21 0900 10/17/21 0838 10/15/21 0808 10/15/21 0439 10/14/21 0447 10/13/21 0519 10/12/21 1612 10/12/21 1451 HGB 10.2 L 10.4 L 10.2 L < > 8.2 L -- 7.9 L 8.0 L -- 8.8 L HCT 32.1 L 31.9 L 31.2 L < > 24.9 L -- 24.1 L 24.7 L 25.0 L 27.0 L WBC 5.6 5.0 4.3 < > 3.9 -- 4.4 4.4 -- 7.2 NEUTROPHILS -- -- -- -- 2.81 -- 3.21 SeeComment -- 6.42 PLT 260 255 206 < > 181 -- 178 166 -- 182 NA 132 L 131 L 130 L < > 130 L -- 127 L 128 L 124 L 124 L KPLASMA 4.0 3.9 3.4 L < > -- -- -- -- -- 4.7 KBLOOD -- -- -- -- -- -- -- -- 4.7 -- KSERUM -- -- -- -- 3.8 -- 4.0 3.8 -- -- MG -- -- -- -- -- 2.3 -- -- -- -- GLUCOSE CANCELED 98 CANCELED 146 H CANCELED < > 131 -- 228 H 216 H -- 435 Crit H HGBA1C -- -- -- -- -- -- -- 7.4 H -- -- BUN 39 H 56 H 52 H < > 63 H -- 58 H 45 H -- 35 H CREATININE 2.89 H 3.60 H 3.92 H < > 4.41 H -- 4.13 H 3.39 H -- 2.48 H ALKPHOS 102 103 103 < > -- -- -- 86 -- 101 AST 21 20 21 < > -- -- -- 14 -- 17 ALT 17 20 35 < > -- -- -- 17 -- 21 BILITOT 0.3 0.3 0.3 < > -- -- -- 0.2 -- 0.5 BILIDIR -- -- -- -- -- -- -- -- -- <0.2 ALBUMIN 4.0 4.0 3.8 < > 3.7 -- 3.5 3.4 L -- 3.5 < > = values in this interval not displayed. Serologies: Recent Labs 11/07/21 0831 10/31/21 0828 10/24/21 0900 10/17/21 0838 CMVQUANT <35 A <35 A 146 A 545 A No results for input(s): EBVDNADETQUP, EBVDNADETQUA, [...] R.N. *All labs are now found in [facility] - Lab - Flowsheets. For further review of labs, please review there or under Synopsis* documented in this encounter Plan of Treatment Upcoming Encounters Date Type Specialty Care Team Description 04/24/2022 Appointment Laboratory Medicine Angélica Granger P.A.-C. [address] [place] [phone] 04/25/2022 Office Visit Otorhinolaryngology Dex Matta APRN, C.N.P., M.S.N. [address] [place] [phone] 05/08/2022 Appointment Laboratory Medicine Angélica Granger P.A.-C. [address] [place] [phone] 05/08/2022 Clinical Admitting/Central Communication Scheduling 05/10/2022 Appointment Radiology Jeremie Rose M.D. [address] [place] [phone] 05/10/2022 Comprehensive Visit Orthopedic Surgery Warner Graves M.D. [address] [place] [phone] 05/22/2022 Appointment Laboratory Medicine Angélica Granger P.A.-C. [address] [place] [phone] 06/05/2022 Appointment Laboratory Medicine Angélica Granger P.A.-C. [address] [place] [phone] 06/19/2022 Appointment Laboratory Medicine Angélica Granger P.A.-C. [address] [place] [phone] 07/03/2022 Appointment Laboratory Medicine Angélica Granger P.A.-C. [address] [place] [phone] 07/17/2022 Appointment Laboratory Medicine Angélica Granger P.A.-C. [address] [place] [phone] 07/31/2022 Appointment Laboratory Medicine Angélica Granger P.A.-C. [address] [place] [phone] 08/14/2022 Appointment Laboratory Medicine Angélica Granger P.A.-C. [address] [place] [phone] 08/28/2022 Appointment Laboratory Medicine Angélica Granger P.A.-C. [address] [place] [phone] documented as of this encounter Visit Diagnoses Not on filedocumented in this encounter Additional Health Concerns Assessment Noted Time PHQ-9 Depression Total Score: 4 11/28/2020 10:17 AM CD T documented as of this encounter Care Teams Oil Transport Driver Relationship Specialty Start Date End Date Elsewhere, Pcp PCP - General Family Medicine 07/29/17 [facility] - Laboratory Medicine 04/12/[address] [address] documented as of this encounter
--- OUTSIDE RECORDS SUMMARY | 2022-04-13 12:00 | XMS_ITS | Encounter Summary ---
:1955 Author Organization [facility] Address [address] [place] [address] Care Team Providers Name Role Phone Elsewhere, Pcp Primary Care Provider Unavailable Encounter Details Date Type Department Care Team Description 11/12/2021 Orders Only Division of Nephrology and Chris Norwood Hypertension in [place], ., D.O. [place] [address] [facility] [address] [place] [phone] (Wo rk) Social History Tobacco Use Types [...] or relatives? How often do you attend yazdanism or More than 4 times per year 12/15/2021 anabaptist services? 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 [address] [place] [phone] 04/25/2022 Office Visit Otorhinolaryngology Dex Matta APRN, C.N.P., M.S.N. [address] [place] [phone] 05/08/2022 Appointment Laboratory Medicine Angélica Granger P.A.-CDemetrius [address] [place] [phone] 05/08/2022 Clinical Admitting/Central Communication Scheduling 05/10/2022 Appointment Radiology Jeremie Rose M.D. [address] [place] [phone] 05/10/2022 Comprehensive Visit Orthopedic Surgery Warnre Graves M.D. [address] [place] [phone] 05/22/2022 Appointment Laboratory Medicine Angélica Granger P.A.-C. [address] [place] [phone] 06/05/2022 Appointment Laboratory Medicine Angélica Granger P.A.-C. [address] [place] [phone] 06/19/2022 Appointment Laboratory Medicine Angélica Granger P.A.-C. [address] [place] [phone] 07/03/2022 Appointment Laboratory Medicine Angélica Granger P.A.-C. [address] [place] [phone] 07/17/2022 Appointment Laboratory Medicine Angélica Granger P.A.-C. [address] [place] [phone] 07/31/2022 Appointment Laboratory Medicine Angélica Granger P.A.-C. [address] [place] [phone] 08/14/2022 Appointment Laboratory Medicine Angélica Granger P.A.-C. [address] [place] [phone] 08/28/2022 Appointment Laboratory Medicine Angélica Granger P.A.-C. [address] [place] [phone] documented as of this encounter Visit Diagnoses Not on filedocumented in this encounter Additional Health Concerns Assessment Noted Time PHQ-9 Depression Total Score: 4 11/28/2020 10:17 AM CD T documented as of this encounter Care Teams Payment Poster Relationship Specialty Start Date End Date Elsewhere, Pcp PCP - General Family Medicine 07/29/17 [facility] - Laboratory Medicine 04/12/[address] [address] documented as of this encounter
--- OUTSIDE RECORDS SUMMARY | 2022-04-13 12:00 | XMS_ITS | Encounter Summary ---
:1955 Author Organization [facility] Address [address] [place] [address] Care Team Providers Name Role Phone Elsewhere, Pcp Primary Care Provider Unavailable Encounter Details Date Type Department Care Team Description 11/12/2021 Documentation Division of Nephrology and Suhail Norwood Hypertension in [place], ., D.O. [place] [address] [facility] [address] [place] [phone] (Wo rk) Social History Tobacco Use Types [...] or relatives? How often do you attend jew or More than 4 times per year 12/15/2021 rastafari services? Do you belong to any clubs or No 12/15/2021 organizations such as jew groups, unions, fraternal or athletic groups, or [...] place to sleep or slept in a [place] [facility] [place] facility (including now)? Education Answer Date Recorded What is the highest level of school you have Some college, n o degree 02/25/2019 completed or the highest degree you have received? 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 - 11/12/2021 10:42 AM CDT Care coordination note: Patient seen on dialysis-please see scanned in, or care everywhere [facility] note from today. I received an inbox message for him, he is coughing much more, we have been able to ultrafilter him to the point of his having cramping once again, and this appears to be infectious. He had been doing well with the trimethoprim sulfa, I am going to resume this at 1 double strength orally daily, and I communicated this with him. 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 I will also make sure our Infectious Disease experts are in the loop. documented in this encounter Plan of Treatment Upcoming Encounters Date Type Specialty Care Team Description 04/24/2022 Appointment Laboratory Medicine Angélica Granger P.A.-C. [address] [place] [phone] 04/25/2022 Office Visit Otorhinolaryngology Dex Matta APRN, C.N.P., M.S.N. [address] [place] [phone] 05/08/2022 Appointment Laboratory Medicine Angélica Granger P.A.-C. [address] [place] [phone] 05/08/2022 Clinical Admitting/Central Communication Scheduling 05/10/2022 Appointment Radiology Jeremie Rose M.D. [address] [place] [phone] 05/10/2022 Comprehensive Visit Orthopedic Surgery Warner Graves M.D. [address] [place] [phone] 05/22/2022 Appointment Laboratory Medicine Angélica Granger P.A.-C. [address] [place] [phone] 06/05/2022 Appointment Laboratory Medicine Angélica Granger P.A.-C. [address] [place] [phone] 06/19/2022 Appointment Laboratory Medicine Angélica Granger P.A.-C. [address] [place] [phone] 07/03/2022 Appointment Laboratory Medicine Angélica Granger P.A.-C. [address] [place] [phone] 07/17/2022 Appointment Laboratory Medicine Angélica Granger P.A.-C. [address] [place] [phone] 07/31/2022 Appointment Laboratory Medicine Angélica Granger P.A.-C. [address] [place] [phone] 08/14/2022 Appointment Laboratory Medicine Angélica Granger P.A.-C. [address] [place] [address] 08/28/2022 Appointment Laboratory Medicine Angélica Granger P.A.-C. [address] [place] [phone] documented as of this encounter Visit Diagnoses Not on filedocumented in this encounter Additional Health Concerns Assessment Noted Time PHQ-9 Depression Total Score: 4 11/28/2020 10:17 AM CD T documented as of this encounter Care Teams Speech Language Pathology Assistant Relationship Specialty Start Date End Date Elsewhere, Pcp PCP - General Family Medicine 07/29/17 [facility] - Laboratory Medicine 04/12/[address] [address] documented as of this encounter
--- OUTSIDE RECORDS SUMMARY | 2022-04-13 12:00 | XMS_ITS | Encounter Summary ---
:1955 Author Organization [facility] Address [address] [place] [address] Care Team Providers Name Role Phone Elsewhere, Pcp Primary Care Provider Unavailable Reason for Visit Reason Comments Labs Only Encounter Details Date Type Department Care Team Description 11/16/2021 Clinical Communication Irena Game[facility] Labs Only Center for R, R.N. Transplantation and [address] [place] [address] Clinical Regeneration in [place], [place] [address] [address] [place] [address] [place] [address] (Work) [phone] Social History Tobacco Use Types Packs/Day Years [...] More than 4 times per year 12/15/2021 jain services? 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 - 11/16/2021 4:20 PM CDT No changes, ok to ride tac low if liver enzymes normal, while on [employer] Telephone Encounter - Yolie Dubois R.N. - 11/16/2021 7:35 AM CDT Please review labs below. Bruce [...] Prednisone 5 mg daily Labs: Recent Labs 11/14/21 0732 11/07/21 0831 10/31/21 0828 10/24/21 0900 10/17/21 0838 10/15/21 0808 TACROLIMUS <1.0 L <1.0 L <1.0 L <1.0 L 1.5 L 2.0 L Recent Labs 11/14/21 0732 11/07/21 0831 10/31/21 0828 10/17/21 0838 10/15/21 0808 10/15/21 0439 10/14/21 0447 10/13/21 0519 10/12/21 1612 10/12/21 1451 10/12/21 1451 HGB 10.0 L 10.2 L 10.4 L < > 8.2 L -- 7.9 L 8.0 L -- -- 8.8 L HCT 31.2 L 32.1 L 31.9 L < > 24.9 L -- 24.1 L 24.7 L 25.0 L -- 27.0 L WBC 6.1 5.6 5.0 < > 3.9 -- 4.4 4.4 -- -- 7.2 NEUTROPHILS -- -- -- -- 2.81 -- 3.21 SeeComment -- -- 6.42 PLT 296 260 255 < > 181 -- 178 166 -- -- 182 NA 131 L 132 L 131 L < > 130 L -- 127 L 128 L 124 L < > 124 L KPLASMA 4.3 4.0 3.9 < > -- -- -- -- -- -- 4.7 KBLOOD -- -- -- -- -- -- -- -- 4.7 -- -- KSERUM -- -- -- -- 3.8 -- 4.0 3.8 -- -- -- MG -- -- -- -- -- 2.3 -- -- -- -- -- GLUCOSE CANCELED 103 H CANCELED 98 CANCELED 146 H < > 131 -- 228 H 216 H -- < > 435 Crit H HGBA1C -- -- -- -- -- -- -- 7.4 H -- -- -- BUN 55 H 39 H 56 H < > 63 H -- 58 H 45 H -- < > 35 H CREATININE 3.43 H 2.89 H 3.60 H < > 4.41 H -- 4.13 H 3.39 H -- < > 2.48 H ALKPHOS 105 102 103 < > -- -- -- 86 -- -- 101 AST 22 21 20 < > -- -- -- 14 -- -- 17 ALT 16 17 20 < > -- -- -- 17 -- -- 21 BILITOT 0.4 0.3 0.3 < > -- -- -- 0.2 -- -- 0.5 BILIDIR -- -- -- -- -- -- -- -- -- -- <0.2 ALBUMIN 4.2 4.0 4.0 < > 3.7 -- 3.5 3.4 L -- -- 3.5 < > = values in this interval not displayed. Serologies: Recent Labs 11/14/21 0732 11/07/21 0831 10/31/21 0828 10/24/21 0900 CMVQUANT <35 A <35 A <35 A 146 A No results for input(s): EBVDNADETQUP, EBVDNADETQUA, [...] R.N. *All labs are now found in [employer] - Lab - Flowsheets. For further review of labs, please review there or under Synopsis* documented in this encounter Plan of Treatment Upcoming Encounters Date Type Specialty Care Team Description 04/24/2022 Appointment Laboratory Medicine Angélica Granger P.A.-C. [address] [place] [phone] 04/25/2022 Office Visit Otorhinolaryngology Dex Matta APRN, C.N.P., M.S.N. [address] [place] [phone] 05/08/2022 Appointment Laboratory Medicine Angélica Granger P.A.-C. [address] [place] [phone] 05/08/2022 Clinical Admitting/Central Communication Scheduling 05/10/2022 Appointment Radiology Jeremie Rose M.D. [address] [place] [phone] 05/10/2022 Comprehensive Visit Orthopedic Surgery Warner Graves M.D. [address] [place] [phone] 05/22/2022 Appointment Laboratory Medicine Angélica Granger P.A.-C. [address] [place] [phone] 06/05/2022 Appointment Laboratory Medicine Angélica Granger P.A.-C. [address] [place] [phone] 06/19/2022 Appointment Laboratory Medicine Angélica Granger P.A.-C. [address] [place] [phone] 07/03/2022 Appointment Laboratory Medicine Angélica Granger P.A.-C. [address] [place] [phone] 07/17/2022 Appointment Laboratory Medicine Angélica Granger P.A.-C. [address] [place] [phone] 07/31/2022 Appointment Laboratory Medicine Angélica Granger P.A.-C. [address] [place] [phone] 08/14/2022 Appointment Laboratory Medicine Angélica Granger P.A.-C. [address] [place] [phone] 08/28/2022 Appointment Laboratory Medicine Angélica Granger P.A.-C. [address] [place] [phone] documented as of this encounter Visit Diagnoses Not on filedocumented in this encounter Additional Health Concerns Assessment Noted Time PHQ-9 Depression Total Score: 4 11/28/2020 10:17 AM CD T documented as of this encounter Care Teams Grey Goods Examiner Relationship Specialty Start Date End Date Elsewhere, Pcp PCP - General Family Medicine 07/29/17 [facility] - Laboratory Medicine 04/12/[address] [address] documented as of this encounter
--- OUTSIDE RECORDS SUMMARY | 2022-04-13 12:00 | XMS_ITS | Encounter Summary ---
:1955 Author Organization [facility] Address [address] [place] [address] Care Team Providers Name Role Phone Elsewhere, Pcp Primary Care Provider Unavailable Reason for Referral Outpatient (Routine) - Closed Specialty Diagnoses / Procedures Referred By Contact Refer red To Contact Dermatology Diagnoses Squamous Cell Carcinoma In Situ Iza Lim M.D. [facility] Procedures [facility] 1-[address] sites [address] [place] [phone] Referral ID Status Reason Start Date Expiration Date Visits Requ ested Visits Authorized [id number] Closed 11/08/2021 11/08/2022 1 1 Encounter Details Date Type Department Care Team Description 11/08/2021 Orders Only Department of Iza Lim Squamous Cell Carcinoma In Situ (Primary Dx); Dermatology in [place] M.D. Encounter For Preprocedural Laboratory E xamination (COVID-19); [address] [facility] Contact With And (Suspected) Exposure To COVID-19 [address] [place] [phone] Social History Tobacco Use Types Packs/Day Years [...] More than 4 times per year 12/15/2021 sikhism services? 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 [address] [place] [phone] 05/08/2022 Appointment Laboratory Medicine Angélica Granger P.A.-C. [address] [place] [phone] 05/08/2022 Clinical Admitting/Central Communication Scheduling 05/10/2022 Appointment Radiology Jeremie Rose M.D. [address] [place] [phone] 05/10/2022 Comprehensive Visit Orthopedic Surgery Warner Graves M.D. [address] [place] [phone] 05/22/2022 Appointment Laboratory Medicine Angélica Granger P.A.-C. [address] [place] [phone] 06/05/2022 Appointment Laboratory Medicine Angélica Granger P.A.-C. [address] [place] [phone] 06/19/2022 Appointment Laboratory Medicine Angélica Granger P.A.-C. [address] [place] [phone] 07/03/2022 Appointment Laboratory Medicine Angélica Granger P.A.-C. [address] [place] [address] [phone] 07/17/2022 Appointment Laboratory Medicine Angélica Granger P.A.-C. [address] [place] [phone] 07/31/2022 Appointment Laboratory Medicine Angélica Granger P.A.-C. [address] [place] [phone] 08/14/2022 Appointment Laboratory Medicine Angélica Granger P.A.-C. [address] [place] [address] 08/28/2022 Appointment Laboratory Medicine Angélica Granger P.A.-C. 200 [place] [phone] Scheduled Orders Name Type Priority Associated Diagnoses Order S chedule [facility] 1-4 sites Dermatology Routine Squamous Cell Carcinom a Expected: 11/22/2021 In Situ (Approximate), Expires: 2022 documented as of this encounter Visit Diagnoses Diagnosis Squamous Cell Carcinoma In Situ - Primar y Encounter For Preprocedural Laboratory E xamination (COVID-19) Contact With And (Suspected) Exposure To COVID-19 documented in this encounter Additional Health Concerns Assessment Noted Time PHQ-9 Depression Total Score: 4 11/28/2020 10:17 AM CD T documented as of this encounter Care Teams Software Design Engineer Relationship Specialty Start Date End Date Elsewhere, Pcp PCP - General Family Medicine 07/29/17 [facility] - Laboratory Medicine 04/12/20 [place] [address] documented as of this encounter
--- OUTSIDE RECORDS SUMMARY | 2022-04-13 12:01 | XMS_ITS | Encounter Summary ---
:1955 Author Organization [facility] Address [address] [place] [address] Care Team Providers Name Role Phone Elsewhere, Pcp Primary Care Provider Unavailable Encounter Details Date Type Department Care Team Description 10/23/2021 Orders Only [facility] Patricia Azevedo R.N., Recipient E valuation Transplantation and C.C.T.C. 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 [address] [place] [address] [phone] 04/25/2022 Office Visit Otorhinolaryngology Dex Matta, RAMONA, C.N.P., M.S.N. [address] [place] [address] [phone] 05/08/2022 Appointment Laboratory Medicine Angélica Granger, P.A.-C. [address] [place] [address] [phone] 05/08/2022 Clinical Admitting/Central Communication Scheduling 05/10/2022 Appointment Radiology Jeremie Rose M.D. [address] [place] [address] [phone] 05/10/2022 Comprehensive Visit Orthopedic Surgery Warner Graves M.D. [address] [place] [address] [phone] 05/22/2022 Appointment Laboratory Medicine Angélica Granger P.A.-C. [address] [place] [phone] 06/05/2022 Appointment Laboratory Medicine Angélica Granger P.A.-C. [address] [place] [phone] 06/19/2022 Appointment Laboratory Medicine Angélica Granger P.A.-C. [address] [place] [phone] 07/03/2022 Appointment Laboratory Medicine Angélica Granger P.A.-C. [address] [place] [phone] 07/17/2022 Appointment Laboratory Medicine Angélica Granger P.A.-C. [address] [place] [phone] 07/31/2022 Appointment Laboratory Medicine Angélica Granger P.A.-C. [address] [place] [phone] 08/14/2022 Appointment Laboratory Angélica Royal P.A.-C. [address] [place] [phone] 08/28/2022 Appointment Laboratory Medicine Angélica Granger P.A.-C. [address] [place] [phone] documented as of this encounter Visit Diagnoses Diagnosis Pretransplant Recipient Evaluation Exam - Primary documented in this encounter Additional Health Concerns Assessment Noted Time PHQ-9 Depression Total Score: 4 11/28/2020 10:17 AM CD T documented as of this encounter Care Teams J2Ee Java Developer Relationship Specialty Start Date End Date Elsewhere, Pcp PCP - General Family Medicine 07/29/17 [facility] - Laboratory Medicine 04/12/20 [place] [address] documented as of this encounter
--- OUTSIDE RECORDS SUMMARY | 2022-04-13 12:01 | XMS_ITS | Encounter Summary ---
:1955 Author Organization [facility] Address [address] [place] [address] Care Team Providers Name Role Phone Elsewhere, Pcp Primary Care Provider Unavailable Reason for Visit Reason Comments Med Refill Encounter Details Date Type Department Care Team Description 10/20/2021 Refill [facility] Anju [facility] for Yusuf Gutierrez, Med Refill Transplantation and Clinical M.D ., M.P.H. Regeneration in [place] [address] [address] [place] [address] [place] [address] [place] [phone] Social History Tobacco Use Types Packs/Day Years [...] or relatives? How often do you attend jain or More than 4 times per year 12/15/2021 congregational services? 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 [address] [place] [phone] 04/25/2022 Office Visit Otorhinolaryngology Dex Matta, RAMONA, C.N.P., M.S.N. [address] [place] [phone] 05/08/2022 Appointment Laboratory Medicine Angélica Granger, P.A.-C. [address] [place] [phone] 05/08/2022 Clinical Admitting/Central Communication Scheduling 05/10/2022 Appointment Radiology Jeremie Rose M.D. [address] [place] [address] [phone] 05/10/2022 Comprehensive Visit Orthopedic Surgery Warner Graves M.D. [address] [place] [phone] 05/22/2022 Appointment Laboratory Medicine Angélica Granger P.A.-C. [address] [place] [phone] 06/05/2022 Appointment Laboratory Medicine Angélica Granger P.A.-C. [address] [place] [phone] 06/19/2022 Appointment Laboratory Angélica Royal P.A.-C. [address] [place] [phone] 07/03/2022 Appointment Laboratory Angélica Royal P.A.-C. [address] [place] [phone] 07/17/2022 Appointment Laboratory Angélica Royal P.A.-C. [address] [place] [phone] 07/31/2022 Appointment Laboratory Angélica Royal P.A.-C. [address] [place] [phone] 08/14/2022 Appointment Laboratory Angélica Royal P.A.-C. [address] [place] [phone] 08/28/2022 Appointment Laboratory Angélica Royal P.A.-C. [address] [place] [phone] documented as of this encounter Visit Diagnoses Not on filedocumented in this encounter Additional Health Concerns Assessment Noted Time PHQ-9 Depression Total Score: 4 11/28/2020 10:17 AM CD T documented as of this encounter Care Teams Lamp Developer Relationship Specialty Start Date End Date Elsewhere, Pcp PCP - General Family Medicine 07/29/17 [facility] - Laboratory Medicine 04/12/20 [place] [phone] documented as of this encounter
--- OUTSIDE RECORDS SUMMARY | 2022-04-13 12:01 | XMS_ITS | Encounter Summary ---
:1955 Author Organization [facility] Address [address] [place] [address] Care Team Providers Name Role Phone Elsewhere, Pcp Primary Care Provider Unavailable Encounter Details Date Type Department Care Team Description 10/24/2021 Hospital Encounter Department of Trung Plasencia Liver (HCC); Laboratory Medicine Edmundo Stern, Medicati on Therapy Quantity Surveyor Not Anticoagulant; in Jimmie Blake M.S. 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 spray lamoTRIgine (LaMICtaL) TAKE 1 TABLET BY 200 [...] daily for 14 doses. predniSONE (DELTASONE) Take 1 tablet (20 10 tablet 0 202110/27/2021 20 mg tablet mg total) by mouth daily for 10 doses. alcohol swabs pads, Use as needed [...] EACH SIDE OF NOSE TWICE DAILY DIRECTED insulin NPH (HumuLIN N Inject 20 Units 18 mL 0 10/17/19 22 10/26/2021 NPH Insulin KwikPen) 100 under the skin unit/mL (3 mL) injection every morning. ipratropium (ATROVENT) Administer 2 sprays 30 mL 01/2102/05/2022 21 mcg (0.03 %) nasal into each nostril 2 spray (two) times a day. upto 5 times daily as needed. lancets 2 each daily. 180 each 3 10/16/2021 12/10/2021 levothyroxine Take 1 tablet (25 90 tablet 3 12/12/202012/2021 (SYNTHROID, LEVOTHROID) mcg total) by mouth 25 mcg every morning tabletIndications: before breakfast. Transplant Liver ([facility]) lidocaine-prilocaine Apply 1 application 30 g 11 202102/07/2022 (EMLA) 2.5-2.5 % cream topically See Admin Instructions. 2 hours prior to dialysis. mycophenolate (CELLCEPT) Take 2 capsules 360 capsule 3 10/1902/15/2022 250 mg (500 mg total) by capsuleIndications: mouth 2 (two) times Transplant Liver (HCC), a day. Do not Infection break, cut, or open Cytomegalovirus ([facility]), capsules. Medication Therapy Quantity Surveyor Not Anticoagulant NIFEdipine XL (PROCARDIA Take 1 tablet (30 270 tablet 09/2211/23/2021 XL) 30 mg 24 hr mg total) by mouth tabletIndications: daily. Hypertension And Chronic Kidney Disease Stage 4 (HCC) pen needle, diabetic 1 Injection daily. 90 [...] Appointment Laboratory Medicine Angélica Granger, P.A.-C. [address] [place] [phone] 04/25/2022 Office Visit Otorhinolaryngology Dex Matta APRN, C.N.P., M.S.N. [address] [place] [phone] 05/08/2022 Appointment Laboratory Medicine Angélica Granger, P.A.-CDemetrius [address] [place] [phone] 05/08/2022 Clinical Admitting/Central Communication Scheduling 05/10/2022 Appointment Radiology Jeremie Rose M.D. [address] [place] [phone] 05/10/2022 Comprehensive Visit Orthopedic Surgery Warner Graves M.D. [address] [place] [address] [phone] 05/22/2022 Appointment Laboratory Medicine Angélica Granger P.A.-C. [address] [place] [address] [phone] 06/05/2022 Appointment Laboratory Medicine Angélica Granger P.A.-C. [address] [place] [address] [phone] 06/19/2022 Appointment Laboratory Medicine Angélica Granger P.A.-C. [address] [place] [phone] 07/03/2022 Appointment Laboratory Medicine Angélica Granger P.A.-C. [address] [place] [address] [phone] 07/17/2022 Appointment Laboratory Medicine Angélica Granger P.A.-C. [address] [place] [phone] 07/31/2022 Appointment Laboratory Medicine Angélica Granger P.A.-C. [address] [place] [phone] 08/14/2022 Appointment Laboratory Medicine Angélica Granger P.A.-C. [address] [place] [phone] 08/28/2022 Appointment Laboratory Medicine Angélica Granger P.A.-C. [address] [place] [phone] documented as of this encounter Procedures Procedure Name Priority Date/Time Associated Diagnosis Comme nts CMV DNA DETECT/QUANT, Routine 10/24/2021 9:00 Transplant Liver (HCC) Results for this P AM CDT Medication Therapy procedure are in Quantity Surveyor Not the results Anticoagulant section. Colitis Cytomegalovirus (HCC) TACROLIMUS LEVEL, B Routine 10/24/2021 9:00 Transplant L iver (HCC) Results for this AM CDT Medication Therapy procedure are in Assisted Not the results Anticoagulant section. Colitis Cytomegalovirus (HCC) CBC WITHOUT Routine 10/24/2021 9:00 Transplant Liver (HCC) Results for this DIFFERENTIAL, B AM CDT Medication Therapy proced ure are in Assisted Not the results Anticoagulant section. Colitis Cytomegalovirus (HCC) COMPREHENSIVE Routine 10/24/2021 9:00 Transplant Liver (HCC) Results for this METABOLIC PANEL, S/P AM CDT Medication Therapy p rocedure are in Assisted Not the results Anticoagulant section. Colitis Cytomegalovirus (HCC) GLUCOSE, FASTING, S/P Routine 10/24/2021 8:57 Transplant Liver (HCC) Results for this AM CDT Medication Therapy procedure are in Quantity Surveyor Not the results Anticoagulant section. Colitis Cytomegalovirus (HCC) documented in this encounter Results (ABNORMAL) Tacrolimus, B (10/24/2021 9:00 AM CDT) P athologist Signature Tacrolimus, B <1.0 (L) 5.0-15.0 10/25/2021 SDSC (Trough) 10:54 AM CDT ng/mL Comment: ----ADDITIONAL INFORMATION---- Target steady-state trough concentration s vary depending on the type of transplant, concomitant immunosuppressio n, clinical/institutional protocols, and time post-transplant. Results should be interpreted in conjunction with this clinical information and any physic al signs/symptoms of rejection/toxicity. Testing performed by Liquid Chromatograp hy-Tandem Mass Spectrometry (LC-MS/MS). This test was developed and its performa nce characteristics determined by [facility] in a manner consistent with CLIA requirements. This test has not been cleared or approved by the U.S. Mer d and Drug Administration. Specimen Anatomical Collection Method Collection Time Receive d Time (Source) Location / / Volume Laterality Blood (Blood, 10/24/2021 9:00 AM 10/26/19 22 7:15 Venous) CDT AM CDT Trung Plasencia P.A.-C., M.S. LAB BLOOD NON ADD-ON Performing Organization Address City/State/ZIP Code Phon e Number [place] [id number] [place] [address] [address] [facility] [place] [address] Laboratory Medicine and Pathology [address] [place] [address] Dr. MURILLO (ABNORMAL) CMV DNA Detect / Quant, Plasma (10/24/2021 9:00 AM CDT) [facility] gist Method Time Signature CMV DNA 146 (A) Undetected 10/25/2021 [facility] Detect/Quant, IU/mL 5:16 PM CDT P Comment: Result in log IU/mL is 2.16. ----ADDITIONAL INFORMATION---- The quantification range of this assay i s 35 to 10,000,000 IU/mL (1.54 log to 7.00 log IU/mL). Testing was performed u sing the tika CMV test ([employer] with the tika Fashiontrot0 System. Specimen Anatomical Collection Method Collection Time Receive d Time (Source) Location / / Volume Laterality Blood (Blood, 10/24/2021 9:00 AM 10/26/19 7:23 Venous) CDT AM CDT Trung Plasencia P.A.-C. M.S. LAB MICROBIOLOGY - BLOOD O RDERABLES Performing Organization Address City/State/ZIP Code Phon e Number [address] [place] [address] [place] [address] [address] [facility] [facility] [place] [address] Laboratory Medicine and Pathology [address] [place] [address] Dr. MURILLO (ABNORMAL) Comprehensive Metabolic Panel (10/24/2021 9:00 AM CDT) Analysis Performed At [facility] logist Time Signature Potassium, P 3.4 (L) 3.6 - 5.2 10/24/2021 [facility] mmol/L 9:26 AM CDT Sodium, P 130 (L) 135 - 145 10/24/2021 [facility] mmol/L 9:26 AM CDT Chloride, P 94 (L) 98 - 107 10/24/2021 [facility] mmol/L 9:26 AM CDT Bicarbonate, P 22 22 - 29 10/24/2021 [facility] mmol/L 9:26 AM CDT Anion Gap, P 14 7 - 15 10/24/2021 [facility] 9:26 AM CDT BUN (Blood Urea 52 (H) 8 - 24 10/24/2021 [facility] Nitrogen), P mg/dL 9:26 AM CDT Creatinine 3.92 (H) 0.74 - 10/24/2021 [facility] 1.35 mg/dL 9:26 AM CDT eGFR-Black/Afri 17 (L) >=60 10/24/2021 [facility] can [place] mL/min/BSA 9:26 AM CDT Comment: ----ADDITIONAL INFORMATION---- Estimated GFR calculated using the 2009 CKD_EPI creatinine equation. eGFR Non-Black/ <15 (L) >=60 mL/min/BSA 10/24/2021 9:26 AM CDT [facility] [place] Comment: ----ADDITIONAL INFORMATION---- Estimated GFR calculated using the 2009 CKD_EPI creatinine equation. Calcium, Total, P 8.6 (L) 8.8 - 10.2 mg/dL 10/24/2021 9:26 AM CDT [facility] Glucose, P CANCELED mg/dL 10/24/2021 9:01 AM CDT [facility] Comment: Duplicate test request. Result canceled by the ancillary. Protein, Total, P 6.0 (L) 6.3 - 7.9 g/dL 10/24/2021 9:26 A M CDT [facility] Albumin, P 3.8 3.5 - 5.0 g/dL 10/24/2021 9:26 AM CDT C NFL Aspartate Aminotransferase 21 8 - 48 U/L 10/24/2021 9 :26 AM CDT [facility] (AST), P Alkaline Phosphatase, P 103 40 - 129 U/L 10/24/2021 9: 26 AM CDT [facility] Alanine Aminotransferase 35 7 - 55 U/L 10/24/2021 9:2 6 AM CDT [facility] (ALT), P Bilirubin, Total, P 0.3 <=1.2 mg/dL 10/24/2021 9:26 AM CDT [facility] Specimen Anatomical Collection Method Collection Time Receive d Time (Source) Location / / Volume Laterality Blood (Blood, 10/24/2021 9:00 AM 10/25/19 9:01 Venous) CDT AM CDT Trung Plasencia P.A.-C., M.S. LAB BLOOD ADD-ON Performing Organization Address City/State/ZIP Code Phon e Number [address] [address] [place] [address] (ABNORMAL) CBC without Differential (10/24/2021 9:00 AM CDT) Patholo gist Method Time Signature Hemoglobin 10.2 (L) 13.2 - 10/24/2021 [facility] 16.6 g/dL 9:15 AM CDT Hematocrit 31.2 (L) 38.3 - 10/24/2021 [facility] 48.6 % 9:15 AM CDT Erythrocytes 3.13 (L) 4.35 - 10/24/2021 [facility] 5.65 9:15 AM CDT x10(12)/L MCV 99.7 (H) 78.2 - 10/24/2021 [facility] 97.9 fL 9:15 AM CDT RBC Distrib Width 14.2 11.8 - 10/24/2021 [facility] 14.5 % 9:15 AM CDT Platelet Count 206 135 - 317 10/24/2021 [facility] x10(9)/L 9:15 AM CDT Leukocytes 4.3 3.4 - 9.6 10/24/2021 [facility] x10(9)/L 9:15 AM CDT Specimen Anatomical Collection Method Collection Time Receive d Time (Source) Location / / Volume Laterality Blood (Blood, 10/24/2021 9:00 AM 10/25/19 9:01 Venous) CDT AM CDT Trung Plasencia P.A.-C., M.S. LAB BLOOD ADD-ON Performing Organization Address [facility] Code Phon e Number [address] [address] [place] [address] System [address] (ABNORMAL) Glucose, Fasting (10/24/2021 8:57 AM CDT) P athologist Signature Glucose, P 149 (H) 70 - 100 10/24/2021 [facility] mg/dL 9:24 AM CDT Last Intake 13 hr 10/24/2021 [facility] 9:00 AM CDT Specimen Anatomical Collection Method Collection Time Receive d Time (Source) Location / / Volume Laterality Blood (Blood, 10/24/2021 8:57 AM 10/25/19 9:01 Venous) CDT AM CDT Trung Plasencia P.A.-C., M.S. LAB BLOOD NON ADD-ON Performing Organization Address City/State/ZIP Code Phon e Number [facility]- [address] [place] [address] [place] [address] [place] [address] System [address] documented in this encounter Visit Diagnoses Diagnosis Transplant Liver (HCC) Medication Therapy Quantity Surveyor Not Anticoa gulant Colitis Cytomegalovirus (HCC) documented in this encounter Additional Health Concerns Assessment Noted Time PHQ-9 Depression Total Score: 4 11/28/2020 10:17 AM CD T documented as of this encounter Care Teams Casting And Curing Operator Relationship Specialty Start Date End Date Elsewhere, Pcp PCP - General Family Medicine 07/29/17 [facility] - Laboratory Medicine 04/12/[address] [address] documented as of this encounter
--- OUTSIDE RECORDS SUMMARY | 2022-04-13 12:01 | XMS_ITS | Encounter Summary ---
:1955 Author Organization [facility] Address [address] [place] [address] Care Team Providers Name Role Phone Elsewhere, Pcp Primary Care Provider Unavailable Encounter Details Date Type Department Care Team Description 11/03/2021 Orders Only Division of Nephrology and Elissa Wilcox A PRN, Hypertension, Confucianist C.N.P. 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 [address] [place] [phone] 04/25/2022 Office Visit Otorhinolaryngology Dex Matta APRN, C.N.P., M.S.N. [address] [place] [phone] 05/08/2022 Appointment Laboratory Medicine Angélica Granger P.A.-C. [address] [place] [phone] 05/08/2022 Clinical Admitting/Central Communication Scheduling 05/10/2022 Appointment Radiology Jeremie Rose M.D. [address] [place] [phone] 05/10/2022 Comprehensive Visit Orthopedic Surgery Warner Graves M.D. [address] [place] [phone] 05/22/2022 Appointment Laboratory Medicine Angélica Granger P.A.-C. [address] [place] [phone] 06/05/2022 Appointment Laboratory Medicine Angélica Granger P.A.-C. [address] [place] [phone] 06/19/2022 Appointment Laboratory Medicine Angélica Granger P.A.-C. [address] [place] [phone] 07/03/2022 Appointment Laboratory Medicine Angélica Granger P.A.-C. [address] [place] [phone] 07/17/2022 Appointment Laboratory Medicine Angélica Granger P.A.-C. [address] [place] [phone] 07/31/2022 Appointment Laboratory Medicine Angélica Granger P.A.-C. [address] [place] [phone] 08/14/2022 Appointment Laboratory Medicine Angélica Granger P.A.-C. [address] [place] [phone] 08/28/2022 Appointment Laboratory Medicine Angélica Granger P.A.-C. [address] [place] [phone] documented as of this encounter Visit Diagnoses Not on filedocumented in this encounter Additional Health Concerns Assessment Noted Time PHQ-9 Depression Total Score: 4 11/28/2020 10:17 AM CD T documented as of this encounter Care Teams Set Up Mechanic Coating Machines Relationship Specialty Start Date End Date Elsewhere, Pcp PCP - General Family Medicine 07/29/17 [facility] - Laboratory Medicine 04/12/[address] [address] documented as of this encounter
--- OUTSIDE RECORDS SUMMARY | 2022-04-13 12:01 | XMS_ITS | Encounter Summary ---
:1955 Author Organization [facility] Address [address] [place] [address] Care Team Providers Name Role Phone Elsewhere, Pcp Primary Care Provider Unavailable Reason for Visit Reason Comments Labs Only Encounter Details Date Type Department Care Team Description 10/25/2021 Clinical Communication Irena Gamez [facility] Labs Only Center for R, R.N. 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 - 10/25/2021 4:33 PM CDT Provider who reviewed results: Dr Gonzalez Recommendations: No medication changes Labs are due: 1 week Patient Online Services message was initiated by a [facility] Registered Nurse for report of test results and recommendations. Telephone Encounter - Yolie Dubois R.N. - 10/25/2021 4:12 PM CDT Please review labs below. Bruce [...] Prednisone 5 mg daily Labs: Recent Labs 10/24/21 0900 10/17/21 0838 10/15/21 0808 10/13/21 0850 10/13/21 0816 10/10/21 0935 TACROLIMUS <1.0 L 1.5 L 2.0 L 2.7 L 2.5 L 2.5 L Recent Labs 10/24/21 0900 10/24/21 0857 10/17/21 0838 10/15/21 0808 10/15/21 0439 10/14/21 0447 10/13/21 0519 10/12/21 1612 10/12/21 1451 HGB 10.2 L -- 8.9 L 8.2 L -- 7.9 L 8.0 L -- 8.8 L HCT 31.2 L -- 27.9 L 24.9 L -- 24.1 L 24.7 L 25.0 L 27.0 L WBC 4.3 -- 5.2 3.9 -- 4.4 4.4 -- 7.2 NEUTROPHILS -- -- -- 2.81 -- 3.21 SeeComment -- 6.42 PLT 206 -- 234 181 -- 178 166 -- 182 NA 130 L -- 128 L 130 L -- 127 L 128 L 124 L 124 L KPLASMA 3.4 L -- 4.0 -- -- -- -- -- 4.7 KBLOOD -- -- -- -- -- -- -- 4.7 -- KSERUM -- -- -- 3.8 -- 4.0 3.8 -- -- MG -- -- -- -- 2.3 -- -- -- -- GLUCOSE CANCELED 149 H CANCELED 108 H 131 -- 228 H 216 H -- 435 Crit H HGBA1C -- -- -- -- -- -- 7.4 H -- -- BUN 52 H -- 54 H 63 H -- 58 H 45 H -- 35 H CREATININE 3.92 H -- 3.80 H 4.41 H -- 4.13 H 3.39 H -- 2.48 H ALKPHOS 103 -- 105 -- -- -- 86 -- 101 AST 21 -- 62 H -- -- -- 14 -- 17 ALT 35 -- 60 H -- -- -- 17 -- 21 BILITOT 0.3 -- 0.4 -- -- -- 0.2 -- 0.5 BILIDIR -- -- -- -- -- -- -- -- <0.2 ALBUMIN 3.8 -- 3.7 3.7 -- 3.5 3.4 L -- 3.5 Serologies: Recent Labs 10/17/21 0838 10/10/21 0935 10/03/21 0837 09/27/21 1037 CMVQUANT 545 A 2170 A 158 A <35 A No results for input(s): [...] R.N. *All labs are now found in [employer] - Lab - Flowsheets. For further review of labs, please review there or under Synopsis* documented in this encounter Plan of Treatment Upcoming Encounters Date Type Specialty Care Team Description 04/24/2022 Appointment Laboratory Medicine Angélica Granger P.A.-C. [address] [place] [phone] 04/25/2022 Office Visit Otorhinolaryngology GosDex jackson APRN, C.N.P., M.S.N. [address] [place] [phone] 05/08/2022 Appointment Laboratory Medicine Angélica Granger P.A.-C. [address] [place] [phone] 05/08/2022 Clinical Admitting/Central Communication Scheduling 05/10/2022 Appointment Radiology Jeremie Rose M.D. [address] [place] [phone] 05/10/2022 Comprehensive Visit Orthopedic Surgery Warner Graves M.D. [address] [place] [phone] 05/22/2022 Appointment Laboratory Medicine Angélica Granger P.A.-C. [address] [place] [phone] 06/05/2022 Appointment Laboratory Medicine Angélica Granger P.A.-C. [address] [place] [phone] 06/19/2022 Appointment Laboratory Medicine Angélica Granger P.A.-C. [address] [place] [phone] 07/03/2022 Appointment Laboratory Medicine Angélica Granger P.A.-C. [address] [place] [phone] 07/17/2022 Appointment Laboratory Medicine Angélica Granger P.A.-C. [address] [place] [phone] 07/31/2022 Appointment Laboratory Medicine Angélica Granger P.A.-C. [address] [place] [phone] 08/14/2022 Appointment Laboratory Medicine Angélica Granger P.A.-C. [address] [place] [phone] 08/28/2022 Appointment Laboratory Medicine Angélica Granger P.A.-C. [address] [place] [phone] documented as of this encounter Visit Diagnoses Not on filedocumented in this encounter Additional Health Concerns Assessment Noted Time PHQ-9 Depression Total Score: 4 11/28/2020 10:17 AM CD T documented as of this encounter Care Teams Jewelry Facer Relationship Specialty Start Date End Date Elsewhere, Pcp PCP - General Family Medicine 07/29/17 [facility] - Laboratory Medicine 04/12/[address] [address] documented as of this encounter
--- OUTSIDE RECORDS SUMMARY | 2022-04-13 12:01 | XMS_ITS | Encounter Summary ---
:1955 Author Organization [facility] Address [address] [place] [address] Care Team Providers Name Role Phone Elsewhere, Pcp Primary Care Provider Unavailable Reason for Visit Reason Comments Blood Glucose Review and Insulin Dosing Encounter Details Date Type Department Care Team Description 10/24/2021 Clinical Communication Division of Zarina Cotto Blood Glucose Endocrinology in D, R.N. 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 - 10/24/2021 8:22 AM CDT INFORMATION DISCUSSED Telephone documentation: Follow up call ?? Patient??calls for blood sugar review and insulin dose adjustment. ??Blood glucose yesterday were 114-*-209-150 mg/dL. ??This morning blood glucose is 144??mg/dL. He states he overtreated his 70 at noon. He felt terrible. ?? Nutritional status is:??oral diet ?? Yesterday, patient took:??NPH??10 units in the morning ?? Steroids:??Prednisone??10 mg daily ? PLAN I, recommended:??NPH 10 units. I reviewed program, hypoglycemia, and asked him to continue to call for dosing needs. ? Disposition/Recommendations: self care appropriate at this time. ?? Education: patient/caller able to teach back. ?? Caller agreeable to plan of care: Yes ?? The following references were used:??nursing clinical judgment and [facility] protocols, DCS provider. documented in this encounter Plan of Treatment Upcoming Encounters Date Type Specialty Care Team Description 04/24/2022 Appointment Laboratory Medicine Angélica Granger P.A.-C. [address] [place] [phone] 04/25/2022 Office Visit Otorhinolaryngology Dex Matta APRN CDemetriusNDeemtriusPDemetrius, M.S.N. [address] [place] [phone] 05/08/2022 Appointment Laboratory Medicine Angélica Granger P.A.-C. [address] [place] [phone] 05/08/2022 Clinical Admitting/Central Communication Scheduling 05/10/2022 Appointment Radiology Jeremie Rose M.D. [address] [place] [phone] 05/10/2022 Comprehensive Visit Orthopedic Surgery Warner Graves M.D. [address] [place] [phone] 05/22/2022 Appointment Laboratory Medicine Angélica Granger P.A.-C. [address] [place] [phone] 06/05/2022 Appointment Laboratory Medicine Angélica Granger P.A.-C. [address] [place] [phone] 06/19/2022 Appointment Laboratory Medicine Angélica Granger P.A.-C. [address] [place] [phone] 07/03/2022 Appointment Laboratory Medicine Angélica Granger P.A.-C. [address] [place] [phone] 07/17/2022 Appointment Laboratory Medicine Angélica Granger P.A.-C. [address] [place] [phone] 07/31/2022 Appointment Laboratory Medicine Angélica Granger P.A.-C. [address] [place] [phone] 08/14/2022 Appointment Laboratory Medicine Angélica Granger P.A.-C. [address] [place] [phone] 08/28/2022 Appointment Laboratory Medicine Angélica Granger P.A.-C. [address] [place] [phone] documented as of this encounter Visit Diagnoses Not on filedocumented in this encounter Additional Health Concerns Assessment Noted Time PHQ-9 Depression Total Score: 4 11/28/2020 10:17 AM CD T documented as of this encounter Care Teams Student Services Director Relationship Specialty Start Date End Date Elsewhere, Pcp PCP - General Family Medicine 07/29/17 [facility] - Laboratory Medicine 04/12/[address] [address] documented as of this encounter
--- OUTSIDE RECORDS SUMMARY | 2022-04-13 12:01 | XMS_ITS | Encounter Summary ---
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 - 10/21/2021 7:50 AM CDT INFORMATION DISCUSSED Telephone documentation: Follow up call Patient calls for blood sugar review and insulin dose adjustment. Blood glucose yesterday were 104, *280 mg/dL. This morning blood glucose is 158 mg/dL. *Bruce had ice cream about an hour before evening check Nutritional status is: oral intake, consuming 100%. Yesterday, patient took: NPH 14-0-0-0 Steroids: Prednisone 20mg QD PLAN I, recommended: No changes to insulin doses; Disposition/Recommendations: self care appropriate at this time. Education: patient/caller able to teach back. Caller agreeable to plan of care: Yes The following references were used: [facility] protocols documented in this encounter Plan of Treatment Upcoming Encounters Date Type Specialty Care Team Description 04/24/2022 Appointment Laboratory Medicine Angélica Granger P.A.-C. [address] [place] [phone] 04/25/2022 Office Visit Otorhinolaryngology Dex Matta APRN, C.N.P., M.S.N. [address] [place] [phone] 05/08/2022 Appointment Laboratory Medicine Angélica Granger P.A.-C. [address] [place] [phone] 05/08/2022 Clinical Admitting/Central Communication Scheduling 05/10/2022 Appointment Radiology Jeremie Rose M.D. [address] [place] [phone] 05/10/2022 Comprehensive Visit Orthopedic Surgery Warner Graves M.D. [address] [place] [phone] 05/22/2022 Appointment Laboratory Medicine Angélica Granger P.A.-C. [address] [place] [phone] 06/05/2022 Appointment Laboratory Medicine Angélica Granger P.A.-C. [address] [place] [phone] 06/19/2022 Appointment Laboratory Medicine Angléica Granger P.A.-C. [address] [place] [phone] 07/03/2022 Appointment Laboratory Medicine Angélica Granger P.A.-C. [address] [place] [phone] 07/17/2022 Appointment Laboratory Medicine Angélica Granger P.A.-C. [address] [place] [phone] 07/31/2022 Appointment Laboratory Medicine Angélica Granger P.A.-C. [address] [place] [phone] 08/14/2022 Appointment Laboratory Medicine Angélica Granger P.A.-C. [address] [place] [phone] 08/28/2022 Appointment Laboratory Medicine Angélica Granger P.A.-C. [address] [place] [phone] documented as of this encounter Visit Diagnoses Not on filedocumented in this encounter Additional Health Concerns Assessment Noted Time PHQ-9 Depression Total Score: 4 11/28/2020 10:17 AM CD T documented as of this encounter Care Teams Prop Sawyer Relationship Specialty Start Date End Date Elsewhere, Pcp PCP - General Family Medicine 07/29/17 [facility] - Laboratory Medicine 04/12/[address] [address] documented as of this encounter
--- OUTSIDE RECORDS SUMMARY | 2022-04-13 12:01 | XMS_ITS | Encounter Summary ---
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 - 11/01/2021 2:34 PM CDT LDA documentation. documented in this encounter Plan of Treatment Upcoming Encounters Date Type Specialty Care Team Description 04/24/2022 Appointment Laboratory Medicine Angélica Granger, P.A.-CDemetrius [address] [place] [phone] 04/25/2022 Office Visit Otorhinolaryngology Dex Matta APRN, C.N.P., M.S.N. [address] [place] [phone] 05/08/2022 Appointment Laboratory Medicine Angélica Granger, Evan.A.-CDemetrius [address] [place] [phone] 05/08/2022 Clinical Admitting/Central Communication Scheduling 05/10/2022 Appointment Radiology Jeremie Rose M.D. [address] [place] [phone] 05/10/2022 Comprehensive Visit Orthopedic Surgery Warner Graves M.D. [address] [place] [phone] 05/22/2022 Appointment Laboratory Medicine Angélica Granger P.A.-C. [address] [place] [phone] 06/05/2022 Appointment Laboratory Medicine Angélica Granger P.A.-C. [address] [place] [phone] 06/19/2022 Appointment Laboratory Medicine Angélica Granger P.A.-C. [address] [place] [phone] 07/03/2022 Appointment Laboratory Medicine Angélica Granger P.A.-C. [address] [place] [phone] 07/17/2022 Appointment Laboratory Medicine Angélica Granger P.A.-C. [address] [place] [phone] 07/31/2022 Appointment Laboratory Medicine Angélica Granger P.A.-C. [address] [place] [phone] 08/14/2022 Appointment Laboratory Medicine Angélica Granger P.A.-C. [address] [place] [phone] 08/28/2022 Appointment Laboratory Angélica Royal P.A.-C. [address] [place] [phone] documented as of this encounter Visit Diagnoses Not on filedocumented in this encounter Additional Health Concerns Assessment Noted Time PHQ-9 Depression Total Score: 4 11/28/2020 10:17 AM CD T documented as of this encounter Care Teams Medical Support Specialist Relationship Specialty Start Date End Date Elsewhere, Pcp PCP - General Family Medicine 07/29/17 [facility] - Laboratory Medicine 04/12/[address] [address] documented as of this encounter
--- OUTSIDE RECORDS SUMMARY | 2022-04-13 12:01 | XMS_ITS | Encounter Summary ---
:1955 Author Organization [facility] Address [address] [place] [address] Care Team Providers Name Role Phone Elsewhere, Pcp Primary Care Provider Unavailable Reason for Visit Reason Comments Blood Glucose Review and Insulin Dosing Encounter Details Date Type Department Care Team Description 10/23/2021 Clinical Communication Division of Zarina Cotto Blood Glucose Endocrinology in D, R.N. Review and Insulin [place], [place] [phone] D[address] [place] [address] (Work) [place] [address] Social History Tobacco Use Types [...] More than 4 times per year 12/15/2021 faith services? 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 - 10/23/2021 8:41 AM CDT INFORMATION DISCUSSED Telephone documentation: Follow up call ?? Patient calls for blood sugar review and insulin dose adjustment. Blood glucose yesterday were 135-70-290-* mg/dL. This morning blood glucose is 114 mg/dL. He states he overtreated his 70 at noon. He felt terrible. ?? Nutritional status is: oral diet ?? Yesterday, patient took: NPH 14 units in the morning ?? Steroids: Prednisone 10 mg daily ? PLAN I, recommended: He ate an early breakfast today and took NPH 10 units. I reviewed program, hypoglycemia, and asked him to continue to call for dosing needs. ? Disposition/Recommendations: self care appropriate at this time. ?? Education: patient/caller able to teach back. ?? Caller agreeable to plan of care: Yes ?? The following references were used: nursing clinical judgment and [facility] protocols, DCS provider. documented in this encounter Plan of Treatment Upcoming Encounters Date Type Specialty Care Team Description 04/24/2022 Appointment Laboratory Medicine Angélica Granger P.A.-C. [address] [place] [phone] 04/25/2022 Office Visit Otorhinolaryngology GoschDex APRN, C.N.P., M.S.N. [address] [place] [phone] 05/08/2022 Appointment Laboratory Medicine Angélica Granger P.A.-C. [address] [place] [phone] 05/08/2022 Clinical Admitting/Central Communication Scheduling 05/10/2022 Appointment Radiology Jeremie Rose M.D. [address] [place] [phone] 05/10/2022 Comprehensive Visit Orthopedic Surgery Warner Graves M.D. [address] [place] [phone] 05/22/2022 Appointment Laboratory Medicine Angélica Granger P.A.-C. [address] [place] [phone] 06/05/2022 Appointment Laboratory Medicine Angélica Granger P.A.-C. [address] [place] [phone] 06/19/2022 Appointment Laboratory Medicine Angélica Granger P.A.-C. [address] [place] [phone] 07/03/2022 Appointment Laboratory Medicine Angélica Granger P.A.-C. [address] [place] [phone] 07/17/2022 Appointment Laboratory Medicine Angélica Granger P.A.-C. [address] [place] [phone] 07/31/2022 Appointment Laboratory Medicine Angélica Granger P.A.-C. [address] [place] [phone] 08/14/2022 Appointment Laboratory Medicine Angélica Granger P.A.-C. [address] [place] [phone] 08/28/2022 Appointment Laboratory Medicine Angélica Granger P.A.-C. [address] [place] [phone] documented as of this encounter Visit Diagnoses Not on filedocumented in this encounter Additional Health Concerns Assessment Noted Time PHQ-9 Depression Total Score: 4 11/28/2020 10:17 AM CD T documented as of this encounter Care Teams Front Desk Team Member Relationship Specialty Start Date End Date Elsewhere, Pcp PCP - General Family Medicine 07/29/17 [facility] - Laboratory Medicine 04/12/[address] [address] documented as of this encounter
--- OUTSIDE RECORDS SUMMARY | 2022-04-13 12:01 | XMS_ITS | Encounter Summary ---
:1955 Author Organization [facility] Address [address] [place] [address] Care Team Providers Name Role Phone Elsewhere, Pcp Primary Care Provider Unavailable Reason for Visit Reason Comments Communication Encounter Details Date Type Department Care Team Description 10/26/2021 Clinical Communication Division of [facility] Endocrinology in [place], [place]. 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 - 10/26/2021 8:21 AM CDT INFORMATION DISCUSSED Phone call from pt for blood sugar review and insulin dose adjustment. Reviewed blood sugars from the past day. Blood sugars yesterday were 134-*-87-* and this am is 133. Pt states he is taking Prednisone 10mg QD. PLAN Disposition/Recommendation: Reviewed blood sugars and insulin doses with Anju Zaldivar PA-C of the [facility] who recommended pt hold his insulin and continue testing blood sugars BID. Pt to follow up with his PCP today or Friday for further diabetes management. Recommended pt call backthis weekend if his blood sugars become above his goal range. Education: patient/caller able to teach back Caller agreeable to plan of care: yes The following references were used: nursing clinical judgement and Provider Anju Zaldivar PA-C documented in this encounter Plan of Treatment Upcoming Encounters Date Type Specialty Care Team Description 04/24/2022 Appointment Laboratory Medicine Angélica Granger P.A.-C. [address] [place] [phone] 04/25/2022 Office Visit Otorhinolaryngology Dex Matta APRN, C.N.P., M.S.N. [address] [place] [phone] 05/08/2022 Appointment Laboratory Medicine Angélica Granger P.A.-C. [address] [place] [address] [phone] 05/08/2022 Clinical Admitting/Central Communication Scheduling 05/10/2022 Appointment Radiology Jeremie Rose M.D. [address] [place] [phone] 05/10/2022 Comprehensive Visit Orthopedic Surgery Warner Graves M.D. [address] [place] [address] [phone] 05/22/2022 Appointment Laboratory Medicine Angélica Granger P.A.-C. [address] [place] [phone] 06/05/2022 Appointment Laboratory Medicine Angélica Granger P.A.-C. [address] [place] [phone] 06/19/2022 Appointment Laboratory Medicine Angélica Granger P.A.-C. [address] [place] [phone] 07/03/2022 Appointment Laboratory Medicine Angélica Granger P.A.-C. [address] [place] [phone] 07/17/2022 Appointment Laboratory Medicine Angélica Granger P.A.-C. [address] [place] [phone] 07/31/2022 Appointment Laboratory Medicine Angélica Granger P.A.-C. [address] [place] [phone] 08/14/2022 Appointment Laboratory Medicine Angélica Granger P.A.-C. [address] [place] [phone] 08/28/2022 Appointment Laboratory Medicine Angélica Granger P.A.-C. [address] [place] [address] documented as of this encounter Visit Diagnoses Not on filedocumented in this encounter Additional Health Concerns Assessment Noted Time PHQ-9 Depression Total Score: 4 11/28/2020 10:17 AM CD T documented as of this encounter Care Teams Tunnel Kiln Operator Relationship Specialty Start Date End Date Elsewhere, Pcp PCP - General Family Medicine 07/29/17 [facility] - Laboratory Medicine 04/12/[address] [address] documented as of this encounter
--- OUTSIDE RECORDS SUMMARY | 2022-04-13 12:01 | XMS_ITS | Encounter Summary ---
:1955 Author Organization [facility] Address [address] [place] [address] Care Team Providers Name Role Phone Elsewhere, Pcp Primary Care Provider Unavailable Reason for Visit Reason Comments Dose Adjustment Encounter Details Date Type Department Care Team Description 10/22/2021 Clinical Communication Division of Isra Dean Adjustment Endocrinology in 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 - 10/22/2021 8:14 AM CDT INFORMATION DISCUSSED Telephone documentation: Follow up call Patient calls for blood sugar review and insulin dose adjustment. Blood glucose yesterday were 158-*-190-* mg/dL. This morning blood glucose is 135 mg/dL. Nutritional status is: oral diet Yesterday, patient took: NPH 14 units in the morning Steroids: Prednisone 20 mg daily PLAN I, recommended: No changes to insulin doses; and continue NPH 14 units in the morning. Reviewed program, pt to continue to call for dosing needs. Disposition/Recommendations: self care appropriate at this time. Education: patient/caller able to teach back. Caller agreeable to plan of care: Yes The following references were used: nursing clinical judgment and [facility] protocols documented in this encounter Plan of Treatment Upcoming Encounters Date Type Specialty Care Team Description 04/24/2022 Appointment Laboratory Medicine Angélica Granger P.A.-C. [address] [place] [phone] 04/25/2022 Office Visit Otorhinolaryngology Dex Matta APRN, C.N.P., M.S.N. [address] [place] [phone] 05/08/2022 Appointment Laboratory Medicine Angélica Granger P.A.-C. [address] [place] [phone] 05/08/2022 Clinical Admitting/Central Communication Scheduling 05/10/2022 Appointment Radiology Jeremie Rose M.D. [address] [place] [phone] 05/10/2022 Comprehensive Visit Orthopedic Surgery Warner Graves M.D. [address] [place] [phone] 05/22/2022 Appointment Laboratory Medicine Angélica Granger P.A.-C. [address] [place] [phone] 06/05/2022 Appointment Laboratory Medicine Angélica Granger P.A.-C. [address] [place] [phone] 06/19/2022 Appointment Laboratory Medicine Angélica Granger P.A.-C. [address] [place] [phone] 07/03/2022 Appointment Laboratory Medicine Angélica Granger P.A.-C. [address] [place] [phone] 07/17/2022 Appointment Laboratory Medicine Angélica Granger P.A.-C. [address] [place] [phone] 07/31/2022 Appointment Laboratory Medicine Angélica Granger P.A.-C. [address] [place] [phone] 08/14/2022 Appointment Laboratory Medicine Angélica Granger P.A.-C. [address] [place] [phone] 08/28/2022 Appointment Laboratory Medicine Angélica Granger P.A.-C. [address] [place] [phone] documented as of this encounter Visit Diagnoses Not on filedocumented in this encounter Additional Health Concerns Assessment Noted Time PHQ-9 Depression Total Score: 4 11/28/2020 10:17 AM CD T documented as of this encounter Care Teams Boat Driver Relationship Specialty Start Date End Date Elsewhere, Pcp PCP - General Family Medicine 07/29/17 [facility] - Laboratory Medicine 04/12/20 [place] [phone] documented as of this encounter
--- OUTSIDE RECORDS SUMMARY | 2022-04-13 12:01 | XMS_ITS | Encounter Summary ---
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 [address] [place] [address] Referral ID Status Reason Start Date Expiration Date Visits Requ ested Visits Authorized [id number] Closed 07/23/2021 07/23/2022 1 1 Encounter Details Date Type Department Care Team Description 11/05/2021 Comprehensive Visit Department of Iza Lim is Actinic (Primary Dx); Dermatology in [place] Millard M.D. 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 - 11/05/2021 11:40 AM CDT Chief complaint: Skin check History of present illness: Mr. Singh is a very pleasant 66-year-old male here today for a skin exam. He was last seen in our department approximately 1 year ago. 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 He is here today for a skin examination. He has noticed an erythematous, scaly papule in the right conchal bowl it has been present for 1-2 months. He has a history of numerous actinic keratoses treated in the past. He denies other new, symptomatic, or changing lesions. He is well informed of the importance of sunscreenand photo protective measures. Past medical history: Significant for cirrhosis, liver transplant, chronic kidney disease, bipolar disorder Physical exam: Mr. Singh is awake, alert, in no acute distress, and pleasant. Examination of the scalp, face, neck, chest, back, arms, hands, legs, feet, and groin performed. Examination is significant for an actinic keratosis on the crown of the scalp. He also has an approximately 3 mm diameter erythematous, crusted papule in the right conchal bowl. He has hyperpigmented macules on the upper chestand back consistent with tinea versicolor. The remainder of the skin exam is unremarkable. Impression, report, plan: #1 Actinic keratosis, crown of scalp Treated with liquid nitrogen without complication. Post liquid nitrogen treatment care reviewed. Follow-up as necessary. #2 Concern for nonmelanoma skin cancer, right conchal bowl The risks, benefits, and alternatives of shave biopsy explained. Verbal consent obtained. Proceduralpause performed. Shave biopsy performed without complication. Follow-up will be based on biopsy results. Recommended sunscreen and continued photo protective measures, intermittent self skin exams, andannual complete cutaneous exam, sooner if concerns arise. #3 Tinea versicolor Prescription for ketoconazole shampoo sent to preferred pharmacy. Use daily to every other day in the shower to affected areas. It was my pleasure to care for Mr. Singh today. documented in this encounter Plan of Treatment Upcoming Encounters Date Type Specialty Care Team Description 04/24/2022 Appointment Laboratory Medicine Angélica Granger P.A.-C. [address] [place] [phone] 04/25/2022 Office Visit Otorhinolaryngology Dex Matta APRN, C.N.P., M.S.N. [address] [place] [phone] 05/08/2022 Appointment Laboratory Medicine Angélica Granger P.A.-C. [address] [place] [phone] 05/08/2022 Clinical Admitting/Central Communication Scheduling 05/10/2022 Appointment Radiology Jeremie Rose M.D. [address] [place] [phone] 05/10/2022 Comprehensive Visit Orthopedic Surgery Warner Graves M.D. [address] [place] [phone] 05/22/2022 Appointment Laboratory Medicine Angélica Granger P.A.-C. [address] [place] [phone] 06/05/2022 Appointment Laboratory Medicine Angélica Granger P.A.-C. [address] [place] [phone] 06/19/2022 Appointment Laboratory Medicine Angélica Granger P.A.-C. [address] [place] [phone] 07/03/2022 Appointment Laboratory Medicine Angélica Granger P.A.-C. [address] [place] [phone] 07/17/2022 Appointment Laboratory Medicine Angélica Granger P.A.-C. [address] [place] [phone] 07/31/2022 Appointment Laboratory Medicine Angélica Granger P.A.-C. [address] [place] [phone] 08/14/2022 Appointment Laboratory Medicine [place] Angélica Stern P.A.-C. [address] [place] [phone] 08/28/2022 Appointment Laboratory Medicine [place] Angélica Stern P.A.-C. [address] [place] [phone] documented as of this encounter Procedures Procedure Name Priority Date/Time Associated Diagnosis Comme [facility] DERMATOPATHOLOGY Routine 11/05/2021 11:45 AM Transplant Liver Results for this CDT (HCC) procedure are i n the results section. documented in this encounter Results Dermatopathology (11/05/2021 11:45 AM CDT) Component Value Ref Test Analysis Performed At [facility] Range Method Time Signature 11/08/2021 PDRM 8:56 AM CDT Report Nancy I. 11/08/2021 PDRBonny electronically Sada Lawrence 8:56 AM CDT signed by Gross Description Received in formalin labeled with patient's name, medical 11/08/2021 PDRM record number and right conchal bowl is a 0.8 x 0.7 x 0.1 8:56 AM CDT cm white skin shave biopsy. ??There is a 0.6 x 0.6 cm pale grady-brown raised, firm, bosselated lesion with irregular borders encompassing nearly the entire skin surface. ??The specimen is trisected and submitted entirely in cassette A1. ??Grossed by JONATHAN. Interpretation FINAL DIAGNOSIS 11/08/2021 PDRM A. ??Right conchal bowl, Skin shave biopsy: ??Squamous cell 8:56 AM CDT carcinoma in situ, involving biopsy borders Specimen (Source) Anatomical Collection Method Collection Time Re ceived Time Location / / Volume Laterality Skin (Right 11/05/2021 11:45 conchal bowl) AM CDT Narrative This result has an attachment that is no t available. Iza Lim M.D. LAB PATH DERM ORDERABLES Performing Organization Address City/State/ZIP Code Phon e Number [facility] - [address] [place], [place] [address] [facility] [place] [address] [facility] [address] documented in this encounter Visit Diagnoses Diagnosis Keratosis Actinic - Primary Transplant Liver (HCC) Lesion Skin Ear Pityriasis Versicolor documented in this encounter Additional Health Concerns Assessment Noted Time PHQ-9 Depression Total Score: 4 11/28/2020 10:17 AM CD T documented as of this encounter Care Teams Flexible Shaft Winder Relationship Specialty Start Date End Date Elsewhere, Pcp PCP - General Family Medicine 07/29/17 [facility] - Laboratory Medicine 04/12/[address] [address] documented as of this encounter
--- OUTSIDE RECORDS SUMMARY | 2022-04-13 12:01 | XMS_ITS | Encounter Summary ---
:1955 Author Organization [facility] Address [address] [place] [address] Care Team Providers Name Role Phone Elsewhere, Pcp Primary Care Provider Unavailable Encounter Details Date Type Department Care Team Description 10/31/2021 Orders Only Division of Nephrology and Elissa Wilcox A PRN, Hypertension, Church C.N.P. 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 [address] [place] [phone] 04/25/2022 Office Visit Otorhinolaryngology Dex Matta APRN, C.N.P., M.S.N. [address] [place] [address] [phone] 05/08/2022 Appointment Laboratory Medicine Angélica Granger P.A.-C. [address] [place] [phone] 05/08/2022 Clinical Admitting/Central Communication Scheduling 05/10/2022 Appointment Radiology Jeremie Rose M.D. [address] [place] [phone] 05/10/2022 Comprehensive Visit Orthopedic Surgery Warner Graves M.D. [address] [place] [phone] 05/22/2022 Appointment Laboratory Medicine Angélica Granger P.A.-C. [address] [place] [phone] 06/05/2022 Appointment Laboratory Medicine Angélica Granger P.A.-C. [address] [place] [phone] 06/19/2022 Appointment Laboratory Medicine Angélica Granger P.A.-C. [address] [place] [phone] 07/03/2022 Appointment Laboratory Medicine Angélica Granger P.A.-C. [address] [place] [phone] 07/17/2022 Appointment Laboratory Medicine Angélica Granger P.A.-C. [address] [place] [phone] 07/31/2022 Appointment Laboratory Medicine Angélica Granger P.A.-C. [address] [place] [phone] 08/14/2022 Appointment Laboratory Medicine Angélica Granger P.A.-C. [address] [place] [address] [phone] 08/28/2022 Appointment Laboratory Medicine Angélica Granger P.A.-C. [address] [place] [phone] documented as of this encounter Visit Diagnoses Not on filedocumented in this encounter Additional Health Concerns Assessment Noted Time PHQ-9 Depression Total Score: 4 11/28/2020 10:17 AM CD T documented as of this encounter Care Teams Manager Electrical Relationship Specialty Start Date End Date Elsewhere, Pcp PCP - General Family Medicine 07/29/17 [facility] - Laboratory Medicine 04/12/[address] [address] documented as of this encounter
--- OUTSIDE RECORDS SUMMARY | 2022-04-13 12:01 | XMS_ITS | Encounter Summary ---
:1955 Author Organization [facility] Address [address] [place] [address] Care Team Providers Name Role Phone Elsewhere, Pcp Primary Care Provider Unavailable Reason for Visit Reason Comments Med Refill Encounter Details Date Type Department Care Team Description [facility] Transplantation and Jenni Leyva M.D. 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 [address] [place] [phone] 04/25/2022 Office Visit Otorhinolaryngology Dex Matta, RAMONA, C.N.P., M.S.N. [address] [place] [phone] 05/08/2022 Appointment Laboratory Medicine Angélica Granger, P.A.-C. [address] [place] [phone] 05/08/2022 Clinical Admitting/Central Communication Scheduling 05/10/2022 Appointment Radiology Jeremie Rose M.D. [address] [place] [address] [phone] 05/10/2022 Comprehensive Visit Orthopedic Surgery Warner Graves M.D. [address] [place] [phone] 05/22/2022 Appointment Laboratory Medicine Angélica Granger P.A.-C. [address] [place] [phone] 06/05/2022 Appointment Laboratory Medicine Angélica Granger P.A.-C. [address] [place] [phone] 06/19/2022 Appointment Laboratory Angélica Royal P.A.-C. [address] [place] [phone] 07/03/2022 Appointment Laboratory Angélica Royal P.A.-C. [address] [place] [phone] 07/17/2022 Appointment Laboratory Angélica Royal P.A.-C. [address] [place] [phone] 07/31/2022 Appointment Laboratory Angélica Royal P.A.-C. [address] [place] [phone] 08/14/2022 Appointment Laboratory Angélica Royal P.A.-C. [address] [place] [phone] 08/28/2022 Appointment Laboratory Angélica Royal P.A.-C. [address] [place] [phone] documented as of this encounter Visit Diagnoses Not on filedocumented in this encounter Additional Health Concerns Assessment Noted Time PHQ-9 Depression Total Score: 4 11/28/2020 10:17 AM CD T documented as of this encounter Care Teams Go Go Dancer Relationship Specialty Start Date End Date Elsewhere, Pcp PCP - General Family Medicine 07/29/17 [facility] - Laboratory Medicine 04/12/20 [place] [address] documented as of this encounter
--- OUTSIDE RECORDS SUMMARY | 2022-04-13 12:01 | XMS_ITS | Encounter Summary ---
:1955 Author Organization [facility] Address [address] [place] [address] Care Team Providers Name Role Phone Elsewhere, Pcp Primary Care Provider Unavailable Reason for Visit Reason Comments Blood Glucose Review and Insulin Dosing Encounter Details Date Type Department Care Team Description 10/25/2021 Clinical Communication Division of Zarina Cotto Blood Glucose Endocrinology in D, R.N. 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 - 10/25/2021 8:26 AM CDT INFORMATION DISCUSSED Telephone documentation: Follow up call ?? Patient??calls for blood sugar review and insulin dose adjustment. ??Blood glucose yesterday were 144-124-126 mg/dL. ??This morning blood glucose is 134??mg/dL.? Nutritional status is:??oral diet ?? Yesterday, patient took:??NPH??10 units in the morning ?? Steroids:??Prednisone??10??mg daily ? PLAN I, recommended:??NPH 8 units. ??I reviewed program,??hypoglycemia, and asked him to??continue to call for dosing needs. ? Disposition/Recommendations: self care appropriate at this time. ?? Education: patient/caller able to teach back. ?? Caller agreeable to plan of care: Yes ?? The following references were used:??nursing clinical judgment and [facility] protocols, DCS provider.? documented in this encounter Plan of Treatment Upcoming Encounters Date Type Specialty Care Team Description 04/24/2022 Appointment Laboratory Medicine Angélica Granger P.A.-C. [address] [place] [phone] 04/25/2022 Office Visit Otorhinolaryngology Gosch, Dex L, SOFTWARE SOLUTIONS ARCHITECT, CDemetriusNDemetriusPDemetrius, M.S.N. [address] [place] [phone] 05/08/2022 Appointment Laboratory Medicine Angélica Granger P.A.-C. [address] [place] [phone] 05/08/2022 Clinical Admitting/Central Communication Scheduling 05/10/2022 Appointment Radiology Jeremie Rose M.D. [address] [place] [phone] 05/10/2022 Comprehensive Visit Orthopedic Surgery Warner Graves M.D. [address] [place] [phone] 05/22/2022 Appointment Laboratory Medicine Angélica Granger P.A.-C. [address] [place] [phone] 06/05/2022 Appointment Laboratory Medicine Angélica Granger P.A.-C. [address] [place] [phone] 06/19/2022 Appointment Laboratory Medicine Angélica Granger P.A.-C. [address] [place] [phone] 07/03/2022 Appointment Laboratory Medicine Angélica Granger P.A.-C. [address] [place] [phone] 07/17/2022 Appointment Laboratory Medicine Angélica Granger P.A.-C. [address] [place] [phone] 07/31/2022 Appointment Laboratory Medicine Angélica Granger P.A.-C. [address] [place] [phone] 08/14/2022 Appointment Laboratory Medicine Angélica Granger P.A.-C. [address] [place] [phone] 08/28/2022 Appointment Laboratory Medicine Angélica Granger P.A.-C. [address] [place] [phone] documented as of this encounter Visit Diagnoses Not on filedocumented in this encounter Additional Health Concerns Assessment Noted Time PHQ-9 Depression Total Score: 4 11/28/2020 10:17 AM CD T documented as of this encounter Care Teams Tire Technician Relationship Specialty Start Date End Date Elsewhere, Pcp PCP - General Family Medicine 07/29/17 [facility] - Laboratory Medicine 04/12/[address] [address] documented as of this encounter
--- OUTSIDE RECORDS SUMMARY | 2022-04-13 12:01 | XMS_ITS | Encounter Summary ---
:1955 Author Organization [facility] Address [address] [place] [address] Care Team Providers Name Role Phone Elsewhere, Pcp Primary Care Provider Unavailable Reason for Visit Reason Comments Labs Only Encounter Details Date Type Department Care Team Description 11/05/2021 Clinical Communication Irena Gamez [facility] Only [facility] Transplantation and [address] [place] [address] Clinical Regeneration in [place], [place] [address] [place] [address] [place] [phone] (Work) [phone] Social History Tobacco Use Types Packs/Day Years [...] More than 4 times per year 12/15/2021 latter day services? 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 - 11/05/2021 5:10 PM CDT Provider who reviewed results: Dr Reyes Recommendations: No medication changes. Labs are due: 1 week Patient Online Services message was initiated by a [facility] Registered Nurse for report of test results and recommendations. Telephone Encounter - Yolie Dubois R.N. - 11/05/2021 1:41 PM CDT Please review labs below. Bruce [...] drip with recurrent aspiration. He follows with Pdamini Barry CNP in Nephrology for stage 5 CKD, on hemodialysis. 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 Current Medications & Recent Dose Changes: Tacrolimus 1 mg BID Mycophenolate 500 mg BID (Decreased to 250 mg BID 10/11) Prednisone 5 mg daily Labs: Recent Labs 10/31/21 0828 10/24/21 0900 10/17/21 0838 10/15/21 0808 10/13/21 0850 10/13/21 0816 TACROLIMUS <1.0 L <1.0 L 1.5 L 2.0 L 2.7 L 2.5 L Recent Labs 10/31/21 0828 10/24/21 0900 10/24/21 0857 10/17/21 0838 10/15/21 0808 10/15/21 0439 10/14/21 0447 10/13/21 0519 10/12/21 1612 10/12/21 1451 HGB 10.4 L 10.2 L -- 8.9 L 8.2 L -- 7.9 L 8.0 L -- 8.8 L HCT 31.9 L 31.2 L -- 27.9 L 24.9 L -- 24.1 L 24.7 L 25.0 L 27.0 L WBC 5.0 4.3 -- 5.2 3.9 -- 4.4 4.4 -- 7.2 NEUTROPHILS -- -- -- -- 2.81 -- 3.21 SeeComment -- 6.42 PLT 255 206 -- 234 181 -- 178 166 -- 182 NA 131 L 130 L -- 128 L 130 L -- 127 L 128 L 124 L 124 L KPLASMA 3.9 3.4 L -- 4.0 -- -- -- -- -- 4.7 KBLOOD -- -- -- -- -- -- -- -- 4.7 -- KSERUM -- -- -- -- 3.8 -- 4.0 3.8 -- -- MG -- -- -- -- -- 2.3 -- -- -- -- GLUCOSE CANCELED 146 H CANCELED < > CANCELED 108 H 131 -- 228 H 216 H -- 435 Crit H HGBA1C -- -- -- -- -- -- -- 7.4 H -- -- BUN 56 H 52 H -- 54 H 63 H -- 58 H 45 H -- 35 H CREATININE 3.60 H 3.92 H -- 3.80 H 4.41 H -- 4.13 H 3.39 H -- 2.48 H ALKPHOS 103 103 -- 105 -- -- -- 86 -- 101 AST 20 21 -- 62 H -- -- -- 14 -- 17 ALT 20 35 -- 60 H -- -- -- 17 -- 21 BILITOT 0.3 0.3 -- 0.4 -- -- -- 0.2 -- 0.5 BILIDIR -- -- -- -- -- -- -- -- -- <0.2 ALBUMIN 4.0 3.8 -- 3.7 3.7 -- 3.5 3.4 L -- 3.5 < > = values in this interval not displayed. Serologies: Recent Labs 10/31/21 0828 10/24/21 0900 10/17/21 0838 10/10/21 0935 CMVQUANT <35 A 146 A 545 A 2170 A No results for input(s): EBVDNADETQUP, EBVDNADETQUA, [...] R.N. *All labs are now found in [facility] Lab - Flowsheets. For further review of labs, please review there or under Synopsis* documented in this encounter Plan of Treatment Upcoming Encounters Date Type Specialty Care Team Description 04/24/2022 Appointment Laboratory Medicine Angélica Granger P.A.-C. [address] [place] [phone] 04/25/2022 Office Visit Otorhinolaryngology Dex Matta APRN, C.N.P., M.S.N. [address] [place] [phone] 05/08/2022 Appointment Laboratory Medicine Angélica Granger P.A.-C. [address] [place] [phone] 05/08/2022 Clinical Admitting/Central Communication Scheduling 05/10/2022 Appointment Radiology Jeremie Rose M.D. [address] [place] [phone] 05/10/2022 Comprehensive Visit Orthopedic Surgery Warner Graves M.D. [address] [place] [phone] 05/22/2022 Appointment Laboratory Medicine Angélica Granger P.A.-C. [address] [place] [phone] 06/05/2022 Appointment Laboratory Medicine Angélica Granger P.A.-C. [address] [place] [phone] 06/19/2022 Appointment Laboratory Medicine Angélica Granger P.A.-C. [address] [place] [phone] 07/03/2022 Appointment Laboratory Medicine Angélica Granger P.A.-C. [address] [place] [phone] 07/17/2022 Appointment Laboratory Medicine Angélica Granger P.A.-C. [address] [place] [phone] 07/31/2022 Appointment Laboratory Medicine Angélica Granger P.A.-C. [address] [place] [phone] 08/14/2022 Appointment Laboratory Medicine Angélica Granger P.A.-C. [address] [place] [phone] 08/28/2022 Appointment Laboratory Medicine Angélica Granger P.A.-C. [address] [place] [phone] documented as of this encounter Visit Diagnoses Not on filedocumented in this encounter Additional Health Concerns Assessment Noted Time PHQ-9 Depression Total Score: 4 11/28/2020 10:17 AM CD T documented as of this encounter Care Teams Car Rental Deliverer Relationship Specialty Start Date End Date Elsewhere, Pcp PCP - General Family Medicine 07/29/17 [facility] - Laboratory Medicine 04/12/[address] [address] documented as of this encounter
--- OUTSIDE RECORDS SUMMARY | 2022-04-13 12:01 | XMS_ITS | Encounter Summary ---
:1955 Author Organization [facility] Address [address] [place] [address] Care Team Providers Name Role Phone Elsewhere, Pcp Primary Care Provider Unavailable Encounter Details Date Type Department Care Team Description 10/31/2021 Hospital Encounter Department of Trung Plasencia Liver (HCC); Laboratory Medicine Edmundo Stern, Medicati on Therapy Fpc Not Anticoagulant; in Jimmie Blake M.S. 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 Transplant Liver (HCC) lidocaine-prilocaine Apply 1 application 30 g 11 202102/07/2022 ([facility]) 2.5-2.5 % cream topically See Admin Instructions. 2 hours prior to dialysis. mycophenolate (CELLCEPT) Take 2 capsules 360 capsule 3 10/1902/15/2022 250 mg (500 mg total) by capsuleIndications: mouth 2 (two) times Transplant Liver ([facility]), a day. Do not Infection break, cut, or open Cytomegalovirus (HCC), capsules. Medication Therapy Intermission Coordinator Not Anticoagulant NIFEdipine XL (PROCARDIA Take 1 [...] Appointment Laboratory Medicine Angélica Granger P.A.-CDemetrius [address] [place] [phone] 04/25/2022 Office Visit Otorhinolaryngology Dex Matta APRN, C.N.P., M.S.N. [address] [place] [phone] 05/08/2022 Appointment Laboratory Medicine Angélica Granger P.A.-CDemetrius [address] [place] [address] [phone] 05/08/2022 Clinical Admitting/Central Communication Scheduling 05/10/2022 Appointment Radiology Jeremie Rose M.D. [address] [place] [phone] 05/10/2022 Comprehensive Visit Orthopedic Surgery Warner Graves M.D. [address] [place] [address] [phone] 05/22/2022 Appointment Laboratory Medicine Angélica Granger P.A.-CDemetrius [address] [place] [address] [phone] 06/05/2022 Appointment Laboratory Medicine Angélica Granger P.A.-C. [address] [place] [phone] 06/19/2022 Appointment Laboratory Medicine Angélica Granger P.A.-C. [address] [place] [phone] 07/03/2022 Appointment Laboratory Medicine Angélica Grangre P.A.-C. [address] [place] [phone] 07/17/2022 Appointment Laboratory Medicine Angélica Granger P.A.-C. [address] [place] [phone] 07/31/2022 Appointment Laboratory Medicine Angélica Granger P.A.-C. [address] [place] [phone] 08/14/2022 Appointment Laboratory Medicine Angélica Granger P.A.-C. [address] [place] [phone] 08/28/2022 Appointment Laboratory Medicine Angélica Granger P.A.-C. [address] [place] [phone] documented as of this encounter Procedures Procedure Name Priority Date/Time Associated Diagnosis Comme nts CMV DNA DETECT/QUANT, Routine 10/31/2021 8:28 Transplant Liver (HCC) Results for this P AM CDT Medication Therapy procedure are in Intermission Coordinator Not the results Anticoagulant section. Colitis Cytomegalovirus (HCC) TACROLIMUS LEVEL, B Routine 10/31/2021 8:28 Transplant L iver (HCC) Results for this AM CDT Medication Therapy procedure are in Fpc Not the results Anticoagulant section. Colitis Cytomegalovirus (HCC) CBC WITHOUT Routine 10/31/2021 8:28 Transplant Liver (HCC) Results for this DIFFERENTIAL, B AM CDT Medication Therapy proced ure are in Intermission Coordinator Not the results Anticoagulant section. Colitis Cytomegalovirus (HCC) GLUCOSE, FASTING, S/P Routine 10/31/2021 8:28 Transplant Liver (HCC) Results for this AM CDT Medication Therapy procedure are in Intermission Coordinator Not the results Anticoagulant section. Colitis Cytomegalovirus (HCC) COMPREHENSIVE Routine 10/31/2021 8:28 Transplant Liver (HCC) Results for this METABOLIC PANEL, S/P AM CDT Medication Therapy p rocedure are in Intermission Coordinator Not the results Anticoagulant section. Colitis Cytomegalovirus (HCC) documented in this encounter Results (ABNORMAL) Tacrolimus, B (10/31/2021 8:28 AM CDT) athologist Signature Tacrolimus, B <1.0 (L) 5.0-15.0 11/01/2021 [facility] (Trough) 10:57 AM CDT ng/mL Comment: ----ADDITIONAL INFORMATION---- Target steady-state trough concentration s vary depending on the type of transplant, concomitant immunosuppressio n, clinical/institutional protocols, and time post-transplant. Results should be interpreted in conjunction with this clinical information and any physic al signs/symptoms of rejection/toxicity. Testing performed by Liquid Chromatograp hy-Tandem Mass Spectrometry (LC-MS/MS). This test was developed and its performa nce characteristics determined by [facility] in a manner consistent with CLIA requirements. This test has not been cleared or approved by the U.S. Mer d and Drug Administration. Specimen Anatomical Collection Method Collection Time Receive d Time (Source) Location / / Volume Laterality Blood (Blood, 10/31/2021 8:28 AM 11/02/19 22 7:25 Venous) CDT AM CDT Trung Plasencia P.A.-C., M.S. LAB BLOOD NON ADD-ON Performing Organization Address City/State/ZIP Code Phon e Number [facility] [address] [place], [place] [address] [facility] [place] [address] Laboratory Medicine and Pathology [address] [place] (ABNORMAL) CMV DNA Detect / Quant, Plasma (10/31/2021 8:28 AM CDT) Patholo gist Method Time Signature CMV DNA <35 (A) Undetected 11/01/2021 [facility] Detect/Quant, IU/mL 11:52 AM CDT P Comment: Result in log IU/mL is <1.54. CMV DNA is detected, but level present i s <35 IU/mL (<1.54 log IU/mL). This assay cannot accurately quantify CMV DNA below this level. ----ADDITIONAL INFORMATION---- The quantification range of this assay i s 35 to 10,000,000 IU/mL (1.54 log to 7.00 log IU/mL). Testing was performed u sing the tika CMV test ([employer] with the [employer] System. Specimen Anatomical Collection Method Collection Time Receive d Time (Source) Location / / Volume Laterality Blood (Blood, 10/31/2021 8:28 AM 11/02/19 22 7:04 Venous) CDT AM CDT Trung Plasencia P.A.-C., M.S. LAB MICROBIOLOGY - BLOOD O RDERABLES Performing Organization Address City/State/ZIP Code Phon e Number [facility] [address] [place], [place] [address] [place] [address] C[facility] [place] [address] Laboratory Medicine and Pathology [address] [place] (ABNORMAL) Glucose, Fasting (10/31/2021 8:28 AM CDT) athologist Signature Glucose, P 146 (H) 70 - 100 10/31/2021 [facility] mg/dL 8:54 AM CDT Last Intake 12 hr 10/31/2021 [facility] 8:28 AM CDT Specimen Anatomical Collection Method Collection Time Receive d Time (Source) Location / / Volume Laterality Blood (Blood, 10/31/2021 8:28 AM 11/01/19 22 8:30 Venous) CDT AM CDT Trung Plasencia P.A.-C., M.S. LAB BLOOD NON ADD-ON Performing Organization Address City/State/ZIP Code Phon e Number [address] [address] [facility] [place] [place] [address] System [address] (ABNORMAL) Comprehensive Metabolic Panel (10/31/2021 8:28 AM CDT) Analysis Performed At Patho logist Time Signature Potassium, P 3.9 3.6 - 5.2 10/31/2021 [facility] mmol/L 8:57 AM CDT Sodium, P 131 (L) 135 - 145 10/31/2021 [facility] mmol/L 8:57 AM CDT Chloride, P 94 (L) 98 - 107 10/31/2021 [facility] mmol/L 8:57 AM CDT Bicarbonate, P 21 (L) 22 - 29 10/31/2021 [facility] mmol/L 8:57 AM CDT Anion Gap, P 16 (H) 7 - 15 10/31/2021 [facility] 8:57 AM CDT BUN (Blood Urea 56 (H) 8 - 24 10/31/2021 [facility] Nitrogen), P mg/dL 8:57 AM CDT Creatinine 3.60 (H) 0.74 - 10/31/2021 [facility] 1.35 mg/dL 8:57 AM CDT eGFR-Black/Afri 19 (L) >=60 10/31/2021 [facility] can [place] mL/min/BSA 8:57 AM CDT Comment: ----ADDITIONAL INFORMATION---- Estimated GFR calculated using the 2009 CKD_EPI creatinine equation. eGFR Non-Black/ 16 (L) >=60 mL/min/BSA 10/31/2021 8:57 AM CDT [facility] [place] Comment: ----ADDITIONAL INFORMATION---- Estimated GFR calculated using the 2009 CKD_EPI creatinine equation. Calcium, Total, P 9.1 8.8 - 10.2 mg/dL 10/31/2021 8:57 AM CDT [facility] Glucose, P CANCELED mg/dL 10/31/2021 8:30 AM CDT [facility] Comment: Duplicate test request. Result canceled by the ancillary. Protein, Total, P 6.3 6.3 - 7.9 g/dL 10/31/2021 8:57 A M CDT [facility] Albumin, P 4.0 3.5 - 5.0 g/dL 10/31/2021 8:57 AM CDT C NFL Aspartate Aminotransferase (AST), 20 8 - 48 U/L 10/31 8:57 AM CDT [facility] P Alkaline Phosphatase, P 103 40 - 129 U/L 10/31/2021 8: 57 AM CDT [facility] Alanine Aminotransferase (ALT), P 20 7 - 55 U/L 10/31 8:57 AM CDT [facility] Bilirubin, Total, P 0.3 <=1.2 mg/dL 10/31/2021 8:57 AM CDT [facility] Specimen Anatomical Collection Method Collection Time Receive d Time (Source) Location / / Volume Laterality Blood (Blood, 10/31/2021 8:28 AM 11/01/19 8:30 Venous) CDT AM CDT Trung Plasencia P.A.-C., M.S. LAB BLOOD ADD-ON Performing Organization Address City/State/ZIP Code Phon e Number [address] [address] [facility] [place] [place] [address] System [address] (ABNORMAL) CBC without Differential (10/31/2021 8:28 AM CDT) [facility] g[facility] Method Time Signature Hemoglobin 10.4 (L) 13.2 - 10/31/2021 [facility] 16.6 g/dL 8:48 AM CDT Hematocrit 31.9 (L) 38.3 - 10/31/2021 [facility] 48.6 % 8:48 AM CDT Erythrocytes 3.15 (L) 4.35 - 10/31/2021 [facility] 5.65 8:48 AM CDT x10(12)/L MCV 101.3 (H) 78.2 - 10/31/2021 [facility] 97.9 fL 8:48 AM CDT RBC Distrib Width 14.5 11.8 - 10/31/2021 [facility] 14.5 % 8:48 AM CDT Platelet Count 255 135 - 317 10/31/2021 [facility] x10(9)/L 8:48 AM CDT Leukocytes 5.0 3.4 - 9.6 10/31/2021 [facility] x10(9)/L 8:48 AM CDT Specimen Anatomical Collection Method Collection Time Receive d Time (Source) Location / / Volume Laterality Blood (Blood, 10/31/2021 8:28 AM 11/01/19 22 8:30 Venous) CDT AM CDT Trung Plasencia P.A.-C., M.S. LAB BLOOD ADD-ON Performing Organization Address City/State/ZIP Code Phon e Number [facility] [address] [place] [address] [place] [address] [facility] [place] [place] [address] System in [address] documented in this encounter Visit Diagnoses Diagnosis Transplant Liver (HCC) Medication Therapy Intermission Coordinator Not Anticoa gulant Colitis Cytomegalovirus (HCC) documented in this encounter Additional Health Concerns Assessment Noted Time PHQ-9 Depression Total Score: 4 11/28/2020 10:17 AM CD T documented as of this encounter Care Teams Patient Registrar Relationship Specialty Start Date End Date Elsewhere, Pcp PCP - General Family Medicine 07/29/17 [facility] - Laboratory Medicine 04/12/20 [place] [phone] documented as of this encounter
--- OUTSIDE RECORDS SUMMARY | 2022-04-13 12:02 | XMS_ITS | Encounter Summary ---
:1955 Author Organization [facility] Address [address] [place] [address] Care Team Providers Name Role Phone Elsewhere, Pcp Primary Care Provider Unavailable Reason for Visit Reason Comments Blood Glucose Review and Insulin Dosing Encounter Details Date Type Department Care Team Description 10/18/2021 Clinical Communication Division of Zarina Cotto Blood Glucose Endocrinology in D, R.N. 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 - 10/18/2021 8:21 AM CDT INFORMATION DISCUSSED Telephone documentation: Follow up call Patient calls for blood sugar review and insulin dose adjustment. Blood glucose yesterday were 109-*51/80-140-282 mg/dL. This morning blood glucose is 125 mg/dL. Nutritional status is: oral intake, consuming baseline. Yesterday, patient took: NPH 20-0-0-0. Steroids: Prednisone 20 mg once daily. PLAN I, recommended: NPH 14-0-0-0. I reviewed hypoglycemia and asked him to call again tomorrow. I reviewed with Evan COATES, ANISH. Disposition/Recommendations: self care appropriate at this time. Education: patient/caller able to teach back. Caller agreeable to plan of care: Yes The following references were used: nursing clinical judgment, provider and [facility] protocols documented in this encounter Plan of Treatment Upcoming Encounters Date Type Specialty Care Team Description 04/24/2022 Appointment Laboratory Medicine Angélica Granger P.A.-C. [address] [place] [phone] 04/25/2022 Office Visit Otorhinolaryngology Dex Matta, RAMONA, C.N.P., M.S.N. [address] [place] [phone] 05/08/2022 Appointment Laboratory Medicine Angélica Granger P.A.-C. [address] [place] [phone] 05/08/2022 Clinical Admitting/Central Communication Scheduling 05/10/2022 Appointment Radiology Jeremie Rose M.D. [address] [place] [phone] 05/10/2022 Comprehensive Visit Orthopedic Surgery Warner Graves M.D. [address] [place] [phone] 05/22/2022 Appointment Laboratory Medicine nAgélica Granger P.A.-C. [address] [place] [phone] 06/05/2022 Appointment Laboratory Medicine Angélica Granger P.A.-C. [address] [place] [phone] 06/19/2022 Appointment Laboratory Medicine Angélica Granger P.A.-C. [address] [place] [phone] 07/03/2022 Appointment Laboratory Medicine Angélica Granger P.A.-C. [address] [place] [phone] 07/17/2022 Appointment Laboratory Medicine Angélica Granger P.A.-C. [address] [place] [phone] 07/31/2022 Appointment Laboratory Medicine Angélica Granger P.A.-C. [address] [place] [address] 08/14/2022 Appointment Laboratory Medicine Angélica Granger P.A.-C. [address] [place] [phone] 08/28/2022 Appointment Laboratory Medicine Angélica Granger P.A.-C. [address] [place] [address] documented as of this encounter Visit Diagnoses Not on filedocumented in this encounter Additional Health Concerns Assessment Noted Time PHQ-9 Depression Total Score: 4 11/28/2020 10:17 AM CD T documented as of this encounter Care Teams Hogshead Inspector Relationship Specialty Start Date End Date Elsewhere, Pcp PCP - General Family Medicine 07/29/17 [facility] - Laboratory Medicine 04/12/[address] [address] documented as of this encounter
--- OUTSIDE RECORDS SUMMARY | 2022-04-13 12:02 | XMS_ITS | Encounter Summary ---
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 - 10/17/2021 7:51 AM CDT INFORMATION DISCUSSED Telephone documentation: Follow up call Patient calls for blood sugar review and insulin dose adjustment. Blood glucose yesterday were 111 mg/dL. This morning blood glucose is 121 mg/dL. Nutritional status is: oral intake, consuming 100%. Yesterday, patient took: NPH 20-0-0-0 Steroids: Prednisone 20mg QD PLAN I, recommended: No changes to insulin doses; Disposition/Recommendations: self care appropriate at this time. Education: patient/caller able to teach back. Caller agreeable to plan of care: Yes The following references were used: [facility] protocols documented in this encounter Plan of Treatment Upcoming Encounters Date Type Specialty Care Team Description 04/24/2022 Appointment Laboratory Medicine Angélica Granger P.A.-C. [address] [place] [phone] 04/25/2022 Office Visit Otorhinolaryngology Dex Matta APRN, C.N.P., M.S.N. [address] [place] [phone] 05/08/2022 Appointment Laboratory Medicine Angélica Granger P.A.-C. [address] [place] [phone] 05/08/2022 Clinical Admitting/Central Communication Scheduling 05/10/2022 Appointment Radiology Jeremie Rose M.D. [address] [place] [phone] 05/10/2022 Comprehensive Visit Orthopedic Surgery Warner Graves M.D. [address] [place] [phone] 05/22/2022 Appointment Laboratory Medicine Angélica Granger P.A.-C. [address] [place] [phone] 06/05/2022 Appointment Laboratory Medicine Angélica Granger P.A.-C. [address] [place] [phone] 06/19/2022 Appointment Laboratory Medicine Angélica Granger P.A.-C. [address] [place] [phone] 07/03/2022 Appointment Laboratory Medicine Angélica Granger P.A.-C. [address] [place] [phone] 07/17/2022 Appointment Laboratory Medicine Angélica Granger P.A.-C. [address] [place] [phone] 07/31/2022 Appointment Laboratory Medicine Angélica Granger P.A.-C. [address] [place] [phone] 08/14/2022 Appointment Laboratory Medicine Angélica Granger P.A.-C. [address] [place] [phone] 08/28/2022 Appointment Laboratory Medicine Angélica Granger P.A.-C. [address] [place] [phone] documented as of this encounter Visit Diagnoses Not on filedocumented in this encounter Additional Health Concerns Assessment Noted Time PHQ-9 Depression Total Score: 4 11/28/2020 10:17 AM CD T documented as of this encounter Care Teams Consulting Psychologist Relationship Specialty Start Date End Date Elsewhere, Pcp PCP - General Family Medicine 07/29/17 [facility] - Laboratory Medicine 04/12/[address] [address] documented as of this encounter
--- OUTSIDE RECORDS SUMMARY | 2022-04-13 12:02 | XMS_ITS | Encounter Summary ---
:1955 Author Organization [facility] Address [address] [place] [address] Care Team Providers Name Role Phone Elsewhere, Pcp Primary Care Provider Unavailable Encounter Details Date Type Department Care Team Description 10/17/2021 Hospital Encounter Department of Trung Plasencia Liver (HCC); Laboratory Medicine Edmundo Stern, Medicati on Therapy Halfway Not Anticoagulant; in Jimmie Blake M.S. 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 spray loratadine (CLARITIN) 10 Take 10 mg by [...] N Inject 20 Units 18 mL 0 10/17/1910/26/2021 NPH Insulin KwikPen) 100 under the skin unit/mL (3 mL) injection every morning. ipratropium (ATROVENT) Administer 2 sprays 30 mL 01/2102/05/2022 21 mcg (0.03 %) nasal into each nostril 2 spray (two) times a day. upto 5 times daily as needed. lamoTRIgine (LaMICtal) TAKE 1 TABLET BY 200 tablet 3 021 10/22/2021 200 mg tablet MOUTH TWICE DAILY lancets 2 each daily. 180 each 3 10/16/2021 12/10/2021 levothyroxine Take 1 tablet (25 90 tablet 3 12/12/2020 0612/2021 (SYNTHROID, LEVOTHROID) mcg total) by mouth 25 mcg every morning tabletIndications: before breakfast. Transplant Liver (HCC) lidocaine-prilocaine Apply 1 application 30 g 11 202102/07/2022 (EMLA) 2.5-2.5 % cream topically See Admin Instructions. 2 hours prior to dialysis. mycophenolate (CELLCEPT) Take 1 capsule (250 180 capsule 3 0 10/16/2021 10/19/2021 250 mg mg total) by mouth capsuleIndications: 2 (two) times a Transplant Liver (HCC), day. Do not break, Infection cut, or open Cytomegalovirus (HCC), capsules. Medication Therapy Halfway Not Anticoagulant NIFEdipine XL (PROCARDIA Take 1 [...] Prophylaxis, medical medical. tacrolimus (PROGRAF) 0.5 Take 1 capsule (0.5 120 capsule 1 0 10/16/2021 10/22/2021 mg capsule mg total) by mouth 2 [...] Appointment Laboratory Medicine Angélica Granger, P.A.-C. [address] [place] [phone] 04/25/2022 Office Visit Otorhinolaryngology Dex Matta, RAMONA, C.N.P., M.S.N. [address] [place] [phone] 05/08/2022 Appointment Laboratory Medicine Angélica Granger P.A.-C. [address] [place] [phone] 05/08/2022 Clinical Admitting/Central Communication Scheduling 05/10/2022 Appointment Radiology Jeremie Rose M.D. [address] [place] [phone] 05/10/2022 Comprehensive Visit Orthopedic Surgery Warner Graves M.D. [address] [place] [phone] 05/22/2022 Appointment Laboratory Medicine Angélica Granger P.A.-C. [address] [place] [phone] 06/05/2022 Appointment Laboratory Medicine Angélica Granger P.A.-C. [address] [place] [phone] 06/19/2022 Appointment Laboratory Medicine Angélica Granger P.A.-C. [address] [place] [phone] 07/03/2022 Appointment Laboratory Medicine Angélica Granger P.A.-C. [address] [place] [phone] 07/17/2022 Appointment Laboratory Medicine Angélica Granger P.A.-C. [address] [place] [phone] 07/31/2022 Appointment Laboratory Medicine Angélica Granger P.A.-C. [address] [place] [phone] 08/14/2022 Appointment Laboratory Medicine Angélica Granger P.A.-C. [address] [place] [phone] 08/28/2022 Appointment Laboratory Medicine Angélica Granger P.A.-C. [address] [place] [phone] documented as of this encounter Procedures Procedure Name Priority Date/Time Associated Diagnosis Comme nts CMV DNA DETECT/QUANT, Routine 10/17/2021 8:38 Transplant Liver (HCC) Results for this P AM CDT Medication Therapy procedure are in Care Transition Coordinator Not the results Anticoagulant section. Colitis Cytomegalovirus (HCC) TACROLIMUS LEVEL, B Routine 10/17/2021 8:38 Transplant L iver (HCC) Results for this AM CDT Medication Therapy procedure are in Halfway Not the results Anticoagulant section. Colitis Cytomegalovirus (HCC) CBC WITHOUT Routine 10/17/2021 8:38 Transplant Liver (HCC) Results for this DIFFERENTIAL, B AM CDT Medication Therapy proced ure are in Care Transition Coordinator Not the results Anticoagulant section. Colitis Cytomegalovirus (HCC) GLUCOSE, FASTING, S/P Routine 10/17/2021 8:38 Transplant Liver (HCC) Results for this AM CDT Medication Therapy procedure are in Halfway Not the results Anticoagulant section. Colitis Cytomegalovirus (HCC) COMPREHENSIVE Routine 10/17/2021 8:38 Transplant Liver (HCC) Results for this METABOLIC PANEL, S/P AM CDT Medication Therapy p rocedure are in Care Transition Coordinator Not the results Anticoagulant section. Colitis Cytomegalovirus (HCC) documented in this encounter Results (ABNORMAL) Tacrolimus, B (10/17/2021 8:38 AM CDT) P athologist Signature Tacrolimus, B 1.5 (L) 5.0-15.0 10/18/2021 SDSC (Trough) 10:55 AM CDT ng/mL Comment: ----ADDITIONAL INFORMATION---- Target steady-state trough concentration s vary depending on the type of transplant, concomitant immunosuppressio n, clinical/institutional protocols, and time post-transplant. Results should be interpreted in conjunction with this clinical information and any physic al signs/symptoms of rejection/toxicity. Testing performed by Liquid Chromatograp hy-Tandem Mass Spectrometry (LC-MS/MS). This test was developed and its performa nce characteristics determined by [facility] in a manner consistent with CLIA requirements. This test has not been cleared or approved by the U.S. Mer d and Drug Administration. Specimen Anatomical Collection Method Collection Time Receive d Time (Source) Location / / Volume Laterality Blood (Blood, 10/17/2021 8:38 AM 10/19/19 22 7:11 Venous) CDT AM CDT Trung Plasencia P.A.-C., M.S. LAB BLOOD NON ADD-ON Performing Organization Address City/[facility]/ZIP Code Phon e Number [facility] [address] [place] [phone] [facility] [place] [address] Laboratory Medicine and Pathology [address] [place] [address] Dr. MURILLO (ABNORMAL) CMV DNA Detect / Quant, Plasma (10/17/2021 8:38 AM CDT) Patholo gist Method Time Signature CMV DNA 545 (A) Undetected 10/18/2021 [facility] Detect/Quant, IU/mL 2:26 AM CDT P Comment: Result in log IU/mL is 2.74. ----ADDITIONAL INFORMATION---- The quantification range of this assay i s 35 to 10,000,000 IU/mL (1.54 log to 7.00 log IU/mL). Testing was performed u sing the tika CMV test ([employer] with the tika 6800 System. Specimen Anatomical Collection Method Collection Time Receive d Time (Source) Location / / Volume Laterality Blood (Blood, 10/17/2021 8:38 AM 10/18/19 22 8:21 Venous) CDT PM CDT Trung Plasencia P.A.-C., M.S. LAB MICROBIOLOGY - BLOOD O RDERABLES Performing Organization Address [facility] Code Phon e Number [address] [place] [address] Laboratory Medicine and Pathology [address] [place] [address] Dr. MURILLO (ABNORMAL) Glucose, Fasting (10/17/2021 8:38 AM CDT) P athologist Signature Glucose, P 108 (H) 70 - 100 10/17/2021 [facility] mg/dL 9:05 AM CDT Last Intake 7 hr 10/17/2021 [facility] 8:38 AM CDT Specimen Anatomical Collection Method Collection Time Receive d Time (Source) Location / / Volume Laterality Blood (Blood, 10/17/2021 8:38 AM 10/18/19 22 8:41 Venous) CDT AM CDT Trung Plasencia P.A.-C., M.S. LAB BLOOD NON ADD-ON Performing Organization Address City/[facility]/ZIP Code Phon e Number [facility]- [address] [place] [address] [place] [address] System [address] (ABNORMAL) Comprehensive Metabolic Panel (10/17/2021 8:38 AM CDT) Analysis Performed At Patho logist Time Signature Potassium, P 4.0 3.6 - 5.2 10/17/2021 [facility] mmol/L 9:07 AM CDT Sodium, P 128 (L) 135 - 145 10/17/2021 [facility] mmol/L 9:07 AM CDT Chloride, P 92 (L) 98 - 107 10/17/2021 [facility] mmol/L 9:07 AM CDT Bicarbonate, P 22 22 - 29 10/17/2021 [facility] mmol/L 9:07 AM CDT Anion Gap, P 14 7 - 15 10/17/2021 [facility] 9:07 AM CDT BUN (Blood Urea 54 (H) 8 - 24 10/17/2021 [facility] Nitrogen), P mg/dL 9:07 AM CDT Creatinine 3.80 (H) 0.74 - 10/17/2021 [facility] 1.35 mg/dL 9:07 AM CDT eGFR-Black/Afri 18 (L) >=60 10/17/2021 [facility] can French mL/min/BSA 9:07 AM CDT Comment: ----ADDITIONAL INFORMATION---- Estimated GFR calculated using the 2009 CKD_EPI creatinine equation. eGFR Non-Black/ 15 (L) >=60 mL/min/BSA 10/17/2021 9:07 AM CDT [facility] French Comment: ----ADDITIONAL INFORMATION---- Estimated GFR calculated using the 2009 CKD_EPI creatinine equation. Calcium, Total, P 8.9 8.8 - 10.2 mg/dL 10/17/2021 9:07 AM CDT [facility] Glucose, P CANCELED mg/dL 10/17/2021 8:41 AM CDT [facility] Comment: Duplicate test request. Result canceled by the ancillary. Protein, Total, P 5.8 (L) 6.3 - 7.9 g/dL 10/17/2021 9:07 A M CDT [facility] Albumin, P 3.7 3.5 - 5.0 g/dL 10/17/2021 9:07 AM CDT C NFL Aspartate Aminotransferase 62 (H) 8 - 48 U/L 10/17/2021 9 :07 AM CDT [facility] (AST), P Alkaline Phosphatase, P 105 40 - 129 U/L 10/17/2021 9: 07 AM CDT [facility] Alanine Aminotransferase 60 (H) 7 - 55 U/L 10/17/2021 9:0 7 AM CDT [facility] (ALT), P Bilirubin, Total, P 0.4 <=1.2 mg/dL 10/17/2021 9:07 AM CDT [facility] Specimen Anatomical Collection Method Collection Time Receive d Time (Source) Location / / Volume Laterality Blood (Blood, 10/17/2021 8:38 AM 10/18/19 8:40 Venous) CDT AM CDT Trung Plasencia P.A.-C., M.S. LAB BLOOD ADD-ON Performing Organization Address City/State/ZIP Code Phon e Number [address] [place] [address] System [address] (ABNORMAL) CBC without Differential (10/17/2021 8:38 AM CDT) [facility] Method Time Signature Hemoglobin 8.9 (L) 13.2 - 10/17/2021 [facility] 16.6 g/dL 8:45 AM CDT Hematocrit 27.9 (L) 38.3 - 10/17/2021 [facility] 48.6 % 8:45 AM CDT Erythrocytes 2.77 (L) 4.35 - 10/17/2021 [facility] 5.65 8:45 AM CDT x10(12)/L MCV 100.7 (H) 78.2 - 10/17/2021 [facility] 97.9 fL 8:45 AM CDT RBC Distrib Width 14.3 11.8 - 10/17/2021 [facility] 14.5 % 8:45 AM CDT Platelet Count 234 135 - 317 10/17/2021 [facility] x10(9)/L 8:45 AM CDT Leukocytes 5.2 3.4 - 9.6 10/17/2021 [facility] x10(9)/L 8:45 AM CDT Specimen Anatomical Collection Method Collection Time Receive d Time (Source) Location / / Volume Laterality Blood (Blood, 10/17/2021 8:38 AM 10/18/19 8:40 Venous) CDT AM CDT Trung Plasencia P.A.-C., M.S. LAB BLOOD ADD-ON Performing Organization Address City/State/ZIP Code Phon e Number [facility]- [address] [place] [address] [place] [address] [place] [address] System [address] documented in this encounter Visit Diagnoses Diagnosis Transplant Liver (HCC) Medication Therapy Care Transition Coordinator Not Anticoa gulant Colitis Cytomegalovirus (HCC) documented in this encounter Additional Health Concerns Assessment Noted Time PHQ-9 Depression Total Score: 4 11/28/2020 10:17 AM CD T documented as of this encounter Care Teams Stroboroma Operator Relationship Specialty Start Date End Date Elsewhere, Pcp PCP - General Family Medicine 07/29/17 [facility] - Laboratory Medicine 04/12/20 [place] [address] documented as of this encounter
--- OUTSIDE RECORDS SUMMARY | 2022-04-13 12:02 | XMS_ITS | Encounter Summary ---
:1955 Author Organization [facility] Address [address] [place] [address] Care Team Providers Name Role Phone Elsewhere, Pcp Primary Care Provider Unavailable Encounter Details Date Type Department Care Team Description 10/20/2021 Clinical Communication Division of [facility], Endocrinology in [facility] Zuleika Tubbs [place], [place] [phone] [address] [facility] (Work) [place] [address] Social History Tobacco Use [...] More than 4 times per year 12/15/2021 sikh services? 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 - 10/20/2021 7:46 AM CDT INFORMATION DISCUSSED Telephone documentation: Follow up call Patient calls for blood sugar review and insulin dose adjustment. Blood glucose yesterday were 137,158 mg/dL. This morning blood glucose is 104 mg/dL. Nutritional status is: oral intake, consuming 100%. Yesterday, patient took: NPH 14-0-0-0 Steroids: Prednisone 20mg QD PLAN I, recommended: No changes to insulin doses; Disposition/Recommendations: self care appropriate at this time. Education: patient/caller able to teach back. Caller agreeable to plan of care: Yes The following references were used: [facility] protocols documented in this encounter Plan of Treatment Upcoming Encounters Date Type Specialty Care Team Description 04/24/2022 Appointment Laboratory Medicine Angélica Granger P.A.-C. [address] [place] [phone] 04/25/2022 Office Visit Otorhinolaryngology Dex Matta APRN, C.N.P., M.S.N. [address] [place] [phone] 05/08/2022 Appointment Laboratory Medicine Angélica Granger P.A.-C. [address] [place] [phone] 05/08/2022 Clinical Admitting/Central Communication Scheduling 05/10/2022 Appointment Radiology Jermeie Rose M.D. [address] [place] [phone] 05/10/2022 Comprehensive Visit Orthopedic Surgery Warner Graves M.D. [address] [place] [phone] 05/22/2022 Appointment Laboratory Medicine Angélica Granger P.A.-C. [address] [place] [phone] 06/05/2022 Appointment Laboratory Medicine Angélica Granger P.A.-C. [address] [place] [phone] 06/19/2022 Appointment Laboratory Medicine Angélica Granger P.A.-C. [address] [place] [phone] 07/03/2022 Appointment Laboratory Medicine Angélica Granger P.A.-C. [address] [place] [phone] 07/17/2022 Appointment Laboratory Medicine Angélica Granger P.A.-C. [address] [place] [phone] 07/31/2022 Appointment Laboratory Medicine Angléica Granger P.A.-C. [address] [place] [phone] 08/14/2022 Appointment Laboratory Medicine Angélica Granger P.A.-C. [address] [place] [phone] 08/28/2022 Appointment Laboratory Medicine Angélica Granger P.A.-C. [address] [place] [phone] documented as of this encounter Visit Diagnoses Not on filedocumented in this encounter Additional Health Concerns Assessment Noted Time PHQ-9 Depression Total Score: 4 11/28/2020 10:17 AM CD T documented as of this encounter Care Teams Filler Mixer Relationship Specialty Start Date End Date Elsewhere, Pcp PCP - General Family Medicine 07/29/17 [facility] - Laboratory Medicine 04/12/[address] [address] documented as of this encounter
--- OUTSIDE RECORDS SUMMARY | 2022-04-13 12:02 | XMS_ITS | Encounter Summary ---
:1955 Author Organization [facility] Address [address] [place] [address] Care Team Providers Name Role Phone Elsewhere, Pcp Primary Care Provider Unavailable Reason for Visit Reason Comments Labs Only Encounter Details Date Type Department Care Team Description 10/18/2021 Clinical Communication Irena Gamez [facility] Labs Only Center for R, R.N. 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 - 10/18/2021 2:14 PM CDT Provider who reviewed results: Dr Umanzor Recommendations: increase mycophenolate back to 500 mg BID Labs are due: 1 week Patient Online Services message was initiated by a [facility] Registered Nurse for report of test results and recommendations. Telephone Encounter - Yusuf Umanzor M.D., M.P.H. - 10/18/2021 1:25 PM CDT We could increase the MMF back to 500 mg bid and recheck labs in 1 week Thanks Telephone Encounter - Yolie Dubois R.N. - 10/18/2021 11:12 AM CDT Please review labs below. Bruce [...] Prednisone 5 mg daily Labs: Recent Labs 10/17/21 0838 10/15/21 0808 10/13/21 0850 10/13/21 0816 10/10/21 0935 10/03/21 0837 TACROLIMUS 1.5 L 2.0 L 2.7 L 2.5 L 2.5 L 1.7 L Recent Labs 10/17/21 0838 10/15/21 0808 10/15/21 0439 10/14/21 0447 10/13/21 0519 10/12/21 1612 10/12/21 1451 10/10/21 0936 10/10/21 0935 HGB 8.9 L 8.2 L -- 7.9 L 8.0 L -- 8.8 L -- 9.8 L HCT 27.9 L 24.9 L -- 24.1 L 24.7 L 25.0 L 27.0 L -- 30.0 L WBC 5.2 3.9 -- 4.4 4.4 -- 7.2 -- 8.0 NEUTROPHILS -- 2.81 -- 3.21 SeeComment -- 6.42 < > -- PLT 234 181 -- 178 166 -- 182 -- 227 NA 128 L 130 L -- 127 L 128 L 124 L 124 L -- 129 L KPLASMA 4.0 -- -- -- -- -- 4.7 -- 3.8 KBLOOD -- -- -- -- -- 4.7 -- -- -- KSERUM -- 3.8 -- 4.0 3.8 -- -- -- -- MG -- -- 2.3 -- -- -- -- -- -- GLUCOSE CANCELED 108 H 131 -- 228 H 216 H -- 435 Crit H < > CANCELED HGBA1C -- -- -- -- 7.4 H -- -- -- -- BUN 54 H 63 H -- 58 H 45 H -- 35 H -- 24 CREATININE 3.80 H 4.41 H -- 4.13 H 3.39 H -- 2.48 H -- 2.14 H ALKPHOS 105 -- -- -- 86 -- 101 -- 111 AST 62 H -- -- -- 14 -- 17 -- 18 ALT 60 H -- -- -- 17 -- 21 -- 18 BILITOT 0.4 -- -- -- 0.2 -- 0.5 -- 0.5 BILIDIR -- -- -- -- -- -- <0.2 -- -- ALBUMIN 3.7 3.7 -- 3.5 3.4 L -- 3.5 -- 3.8 < > = values in this interval not displayed. Serologies: Recent Labs 10/17/21 0838 10/10/21 0935 [...] R.N. *All labs are now found in [facility] - Lab - Flowsheets. For further review of labs, please review there or under Synopsis* documented in this encounter Plan of Treatment Upcoming Encounters Date Type Specialty Care Team Description 04/24/2022 Appointment Laboratory Medicine Angélica Granger P.A.-C. [address] [place] [phone] 04/25/2022 Office Visit Otorhinolaryngology Dex Matta APRN, C.N.PDemetrius, M.S.N. [address] [place] [phone] 05/08/2022 Appointment Laboratory Medicine Angélica Granger P.A.-C. [address] [place] [phone] 05/08/2022 Clinical Admitting/Central Communication Scheduling 05/10/2022 Appointment Radiology Jeremie Rose M.D. [address] [place] [phone] 05/10/2022 Comprehensive Visit Orthopedic Surgery Warner Graves M.D. [address] [place] [phone] 05/22/2022 Appointment Laboratory Medicine Angélica Granger P.A.-C. [address] [place] [phone] 06/05/2022 Appointment Laboratory Medicine Angélica Granger P.A.-C. [address] [place] [phone] 06/19/2022 Appointment Laboratory Medicine Angélica Granger P.A.-C. [address] [place] [phone] 07/03/2022 Appointment Laboratory Medicine Angélica Granger P.A.-C. [address] [place] [phone] 07/17/2022 Appointment Laboratory Medicine Angélica Granger P.A.-C. [address] [place] [phone] 07/31/2022 Appointment Laboratory Medicine Angélica Granger P.A.-C. [address] [place] [phone] 08/14/2022 Appointment Laboratory Medicine Angélica Granger P.A.-C. [address] [place] [phone] 08/28/2022 Appointment Laboratory Medicine Angélica Granger P.A.-C. [address] [place] [phone] documented as of this encounter Visit Diagnoses Diagnosis Transplant Liver (HCC) Infection Cytomegalovirus (HCC) Medication Therapy Alarm Investigator Not Anticoa gulant documented in this encounter Additional Health Concerns Assessment Noted Time PHQ-9 Depression Total Score: 4 11/28/2020 10:17 AM CD T documented as of this encounter Care Teams Deliver Driver Relationship Specialty Start Date End Date Elsewhere, Pcp PCP - General Family Medicine 07/29/17 [facility] - Laboratory Medicine 04/12/20 [place] [id number] documented as of this encounter
--- OUTSIDE RECORDS SUMMARY | 2022-04-13 12:02 | XMS_ITS | Encounter Summary ---
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 - 10/19/2021 7:41 AM CDT INFORMATION DISCUSSED Telephone documentation: Follow up call Patient calls for blood sugar review and insulin dose adjustment. Blood glucose yesterday were [phone] mg/dL. This morning blood glucose is 137 mg/dL. Yesterday, patient took: NPH 14-0-0-0 units Steroids: Prednisone 20 mg po daily. PLAN I, recommended: No changes to insulin doses; NPH 14-0-0-0 units. Disposition/Recommendations: self care appropriate at this time. Education: patient/caller able to teach back. Caller agreeable to plan of care: Yes The following references were used: nursing clinical judgment and [facility] protocols documented in this encounter Plan of Treatment Upcoming Encounters Date Type Specialty Care Team Description 04/24/2022 Appointment Laboratory Medicine Angélica Granger, P.A.-C. [address] [place] [phone] 04/25/2022 Office Visit Otorhinolaryngology Dex Matta APRN, C.N.P., M.S.N. [address] [place] [phone] 05/08/2022 Appointment Laboratory Medicine Angélica Granger P.A.-C. [address] [place] [phone] 05/08/2022 Clinical Admitting/Central Communication Scheduling 05/10/2022 Appointment Radiology Jeremie Rose M.D. [address] [place] [phone] 05/10/2022 Comprehensive Visit Orthopedic Surgery Warner Graves M.D. [address] [place] [phone] 05/22/2022 Appointment Laboratory Medicine Angélica Granger P.A.-C. [address] [place] [phone] 06/05/2022 Appointment Laboratory Medicine Angélica Granger P.A.-C. [address] [place] [phone] 06/19/2022 Appointment Laboratory Medicine Angélica Granger P.A.-C. [address] [place] [phone] 07/03/2022 Appointment Laboratory Medicine Angélica Granger P.A.-C. [address] [place] [phone] 07/17/2022 Appointment Laboratory Medicine Angélica Granger P.A.-C. [address] [place] [phone] 07/31/2022 Appointment Laboratory Medicine Angélica Granger P.A.-C. [address] [place] [phone] 08/14/2022 Appointment Laboratory Medicine Angélica Granger P.A.-C. [address] [place] [phone] 08/28/2022 Appointment Laboratory Medicine Angélica Granger P.A.-C. [address] [place] [phone] documented as of this encounter Visit Diagnoses Not on filedocumented in this encounter Additional Health Concerns Assessment Noted Time PHQ-9 Depression Total Score: 4 11/28/2020 10:17 AM CD T documented as of this encounter Care Teams Telephonic Case Manager Relationship Specialty Start Date End Date Elsewhere, Pcp PCP - General Family Medicine 07/29/17 [facility] - Laboratory Medicine 04/12/[address] [phone] documented as of this encounter
--- OUTSIDE RECORDS SUMMARY | 2022-04-13 12:02 | XMS_ITS | Encounter Summary ---
:1955 Author Organization [facility] Address [address] [place] [address] Care Team Providers Name Role Phone Elsewhere, Pcp Primary Care Provider Unavailable Encounter Details Date Type Department Care Team Description 10/17/2021 Orders Only Division of Nephrology and Elissa Wilcox A PRN, Hypertension, Pentecostalism C.N.P. [place], in [place], [address] [place] [address] [place] [phone] [place] [address] [phone] Social History Tobacco Use Types Packs/Day Years [...] More than 4 times per year 12/15/2021 voodoo services? 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 [address] [place] [phone] 04/25/2022 Office Visit Otorhinolaryngology Dex Matta APRN, C.N.P., M.S.N. [address] [place] [phone] 05/08/2022 Appointment Laboratory Medicine Angélica Granger P.A.-C. [address] [place] [phone] 05/08/2022 Clinical Admitting/Central Communication Scheduling 05/10/2022 Appointment Radiology Jeremie Rose M.D. [address] [place] [phone] 05/10/2022 Comprehensive Visit Orthopedic Surgery Warner Graves M.D. [address] [place] [phone] 05/22/2022 Appointment Laboratory Medicine Angélica Granger P.A.-C. [address] [place] [phone] 06/05/2022 Appointment Laboratory Medicine Angélica Granger P.A.-C. [address] [place] [phone] 06/19/2022 Appointment Laboratory Medicine Angélica Granger P.A.-C. [address] [place] [phone] 07/03/2022 Appointment Laboratory Medicine Anéglica Granger P.A.-C. [address] [place] [phone] 07/17/2022 Appointment Laboratory Medicine Angléica Granger P.A.-C. [address] [place] [phone] 07/31/2022 Appointment Laboratory Medicine Angélica Granger P.A.-C. [address] [place] [phone] 08/14/2022 Appointment Laboratory Medicine Angélica Granger P.A.-C. [address] [place] [phone] 08/28/2022 Appointment Laboratory Medicine Angélica Granger P.A.-C. [address] [place] [phone] documented as of this encounter Visit Diagnoses Not on filedocumented in this encounter Additional Health Concerns Assessment Noted Time PHQ-9 Depression Total Score: 4 11/28/2020 10:17 AM CD T documented as of this encounter Care Teams Certified Technician Relationship Specialty Start Date End Date Elsewhere, Pcp PCP - General Family Medicine 07/29/17 [facility] - Laboratory Medicine 04/12/[address] [address] documented as of this encounter
--- OUTSIDE RECORDS SUMMARY | 2022-04-13 12:02 | XMS_ITS | Encounter Summary ---
:1955 Author Organization [facility] Address [address] [place] [address] Care Team Providers Name Role Phone Elsewhere, Pcp Primary Care Provider Unavailable Reason for Referral MRI/CAT/PET Scan (Routine) - Closed Specialty Diagnoses / Procedures Referred By Contact Refer red To Contact Radiology Diagnoses Transplant Liver (HCC) Medication Therapy [facility] Not Anticoagulant Shortness Of Breath Yusuf Umanzor M.D., [facility] Procedures CT Chest without IV Contrast M.P.H. [address] [place] [address] Referral ID Status Reason Start Date Expiration Date Visits Requ ested Visits Authorized [id number] Closed 10/17/2021 10/17/2022 1 1 Encounter Details Date Type Department Care Team Description 10/17/2021 Orders Only Yolie Gamez Trans plant Liver (HCC) (Primary Dx); Center for Transplantation R, R. N. 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 [address] [place] [phone] 04/25/2022 Office Visit Otorhinolaryngology Dex Matta APRN, C.N.P., M.S.N. [address] [place] [phone] 05/08/2022 Appointment Laboratory Medicine Angélica Granger P.A.-CDemetrius [address] [place] [phone] 05/08/2022 Clinical Admitting/Central Communication Scheduling 05/10/2022 Appointment Radiology Jeremie Rose M.D. [address] [place] [phone] 05/10/2022 Comprehensive Visit Orthopedic Surgery Warner Graves M.D. [address] [place] [phone] 05/22/2022 Appointment Laboratory Medicine Angélica Granger P.A.-C. [address] [place] [phone] 06/05/2022 Appointment Laboratory Medicine Angélica Granger P.A.-C. [address] [place] [phone] 06/19/2022 Appointment Laboratory Medicine Angélica Granger P.A.-C. [address] [place] [phone] 07/03/2022 Appointment Laboratory Medicine Angélica Granger P.A.-C. [address] [place] [phone] 07/17/2022 Appointment Laboratory Medicine Angélica Granger P.A.-C. [address] [place] [phone] 07/31/2022 Appointment Laboratory Medicine Angélica Granger P.A.-C. [address] [place] [phone] 08/14/2022 Appointment Laboratory Medicine Dar[place] Angélica Stern P.A.-C. [address] [place] [phone] 08/28/2022 Appointment Laboratory Medicine Angélica Granger Jennifer Stern. 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
--- OUTSIDE RECORDS SUMMARY | 2022-04-13 12:03 | XMS_ITS | Encounter Summary ---
:1955 Author Organization [facility] Address [address] [place] [address] Care Team Providers Name Role Phone Elsewhere, Pcp Primary Care Provider Unavailable Encounter Details Date Type Department Care Team Description 10/12/2021 Orders Only Division of Nephrology and Elissa Wilcox A PRN, Hypertension, Episcopalian C.N.P. 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 [address] [place] [phone] 04/25/2022 Office Visit Otorhinolaryngology Dex Matta APRN, C.N.P., M.S.N. [address] [place] [phone] 05/08/2022 Appointment Laboratory Medicine Angélica Granger P.A.-C. [address] [place] [phone] 05/08/2022 Clinical Admitting/Central Communication Scheduling 05/10/2022 Appointment Radiology Jeremie Rose M.D. [address] [place] [phone] 05/10/2022 Comprehensive Visit Orthopedic Surgery Warner Graves M.D. [address] [place] [phone] 05/22/2022 Appointment Laboratory Medicine Angélica Granger P.A.-C. [address] [place] [phone] 06/05/2022 Appointment Laboratory Medicine Angélica Granger P.A.-C. [address] [place] [phone] 06/19/2022 Appointment Laboratory Medicine Angélica Granger P.A.-C. [address] [place] [phone] 07/03/2022 Appointment Laboratory Medicine Angélica Granger P.A.-C. [address] [place] [phone] 07/17/2022 Appointment Laboratory Medicine Angélica Granger P.A.-C. [address] [place] [phone] 07/31/2022 Appointment Laboratory Medicine Angélica Granger P.A.-C. [address] [place] [phone] 08/14/2022 Appointment Laboratory Medicine Angélica Granger P.A.-C. [address] [place] [phone] 08/28/2022 Appointment Laboratory Medicine Angélica Granger P.A.-C. [address] [place] [phone] documented as of this encounter Visit Diagnoses Not on filedocumented in this encounter Additional Health Concerns Infection Onset Date Last Indicated Resolved Time COVID19 Pending 10/12/2021 10/12/2021 10/12/2021 2:28 PM CDT COVID19 Pending 10/12/2021 10/12/2021 10/13/2021 12:34 AM CDT Assessment Noted Time PHQ-9 Depression Total Score: 4 11/28/2020 10:17 AM CD T documented as of this encounter Care Teams Health Outreach Worker Relationship Specialty Start Date End Date Elsewhere, Pcp PCP - General Family Medicine 07/29/17 [facility] - Laboratory Medicine 04/12/20 [place] [id number] documented as of this encounter
--- OUTSIDE RECORDS SUMMARY | 2022-04-13 12:03 | XMS_ITS | Encounter Summary ---
:1955 Author Organization [facility] Address [address] [place] [address] Care Team Providers Name Role Phone Elsewhere, Pcp Primary Care Provider Unavailable Reason for Referral Specialty Diagnoses / Procedures Referred By Contact Refer red To Contact Juan Jose Petersen M.B .B.S. [place] [address] [place] [phone] Referral ID Status Reason Start Date Expiration Date Visits Requ ested Visits Authorized Encounter Details Date Type Department Care Team Description 10/13/2021 Orders Only Division of [place], Corticosteroid Treatment Endocrinology in [place], [place] SimbaBDemetriusS. 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 [address] [place] [phone] 04/25/2022 Office Visit Otorhinolaryngology Dex Matta APRN, C.N.P., M.S.N. [address] [place] [phone] 05/08/2022 Appointment Laboratory Medicine Angélica Granger P.A.-C. [address] [place] [phone] 05/08/2022 Clinical Admitting/Central Communication Scheduling 05/10/2022 Appointment Radiology Jeremie Rose M.D. [address] [place] [phone] 05/10/2022 Comprehensive Visit Orthopedic Surgery Warner Graves M.D. [address] [place] [phone] 05/22/2022 Appointment Laboratory Medicine Angélica Granger P.A.-C. [address] [place] [phone] 06/05/2022 Appointment Laboratory Medicine Angélica Granger P.A.-C. [address] [place] [phone] 06/19/2022 Appointment Laboratory Medicine Angélica Granger P.A.-C. [address] [place] [phone] 07/03/2022 Appointment Laboratory Medicine Angélica Granger P.A.-C. [address] [place] [phone] 07/17/2022 Appointment Laboratory Medicine Angélica Granger P.A.-C. [address] [place] [phone] 07/31/2022 Appointment Laboratory Medicine Angélica Granger P.A.-C. [address] [place] [phone] 08/14/2022 Appointment Laboratory Medicine Angélica Granger P.A.-C. [address] [place] [phone] 08/28/2022 Appointment Laboratory Medicine Angélica Granger P.A.-C. [address] [place] [address], [place] [phone] Scheduled Referrals Name Type Priority Associated Diagnoses Order S chedule Endocrinology - [facility] Outpatient Routine Corticosteroid Expect ed: nurse education visit Referral Treatment [facility] 10/13/2021 (clinic) Systemic (Approximate), Expires: 01/12/2023 documented as of this encounter Visit Diagnoses Diagnosis Corticosteroid Treatment [facility] Syste bryon - Primary documented in this encounter Additional Health Concerns Infection Onset Date Last Indicated Resolved Time COVID19 Pending 10/12/2021 10/12/2021 10/13/2021 12:34 AM CDT Assessment Noted Time PHQ-9 Depression Total Score: 4 11/28/2020 10:17 AM CD T documented as of this encounter Care Teams Stranner Relationship Specialty Start Date End Date Elsewhere, Pcp PCP - General Family Medicine 07/29/17 [facility] - Laboratory Medicine 04/12/[address] [address] documented as of this encounter
--- OUTSIDE RECORDS SUMMARY | 2022-04-13 12:03 | XMS_ITS | Encounter Summary ---
:1955 Author Organization [facility] Address [address] [place] [id number] Care Team Providers Name Role Phone Elsewhere, Pcp Primary Care Provider Unavailable Reason for Visit Reason Comments Labs Only Encounter Details Date Type Department Care Team Description 10/11/2021 Clinical Communication Irena Gamez [facility] Labs Only [facility] Trans[facility] and [address] [place] [address] Clinical Regeneration in [place], [place] [phone] [place] [address] [place] [phone] (Work) [phone] Social History Tobacco Use Types Packs/Day Years [...] or relatives? How often do you attend pentecostal or More than 4 times per year 12/15/2021 latter-day services? 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 - 10/11/2021 3:02 PM CDT Provider who reviewed results: Dr Trammell and Trung Plasencia Recommendations: Re-start Valcyte 450 mg every 48 hours after dialysis on dialysis days and decreaseMMF to 250 mg BID Labs are due: 1 week Patient Online Services message was initiated by a [facility] Registered Nurse for report of test results and recommendations. Telephone Encounter - Yolie Dubois R.N. - 10/11/2021 12:10 PM CDT Trung: Transplant type: Liver Date of transplant: 06/12/2013 (Liver), 05/25/1999 (Liver) CMV status: Donor negative/Recipient positive EBV status: Donor positive/Recipient positive Current immunosuppression: Tacrolimus 1 mg BID, Mycophenalate Mofetil 500 mg BID, Prednisone 10 mg daily Creatinine/eGFR: 3.72 (on hemodialysis) WBC and absolute lymphocyte count: 5.5 Recent treatment for rejection? NO. Current Qn CMV PCR: 158 Patient symptoms: Portal message attached Additional information: Stopped oral Valcyte on 09/15 Please advise on recommendations. Dr Trammell: Please review labs below. Bruce was transplanted [...] Nephrology for stage 5 CKD, on hemodialysis. Current Medications & Recent Dose Changes: Tacrolimus 1 mg BID Mycophenolate 500 mg BID Prednisone 5 mg daily Labs: Recent Labs 10/10/21 0935 10/03/21 0837 09/27/21 1037 09/19/21 0839 09/12/21 0835 09/05/21 0824 TACROLIMUS 2.5 L 1.7 L 1.4 L 1.5 L 1.6 L 1.4 L Recent Labs 10/10/21 0936 10/10/21 0935 10/03/21 0837 09/27/21 1037 08/14/21 0821 08/14/21 0820 07/20/21 0900 07/16/21 0816 HGB -- 9.8 L 9.6 L 10.7 L < > 9.6 L 10.1 L 10.4 L HCT -- 30.0 L 29.5 L 33.1 L < > 30.3 L 31.4 L 32.0 L WBC -- 8.0 5.5 9.3 < > 7.4 5.2 5.6 NEUTROPHILS -- -- -- -- -- -- 3.5 4.10 PLT -- 227 221 267 < > 282 306 266 NA -- 129 L 130 L 128 L < > 130 L 135 -- KPLASMA -- 3.8 3.6 4.4 < > -- -- -- KSERUM -- -- -- -- -- 3.9 3.7 -- GLUCOSE 278 H CANCELED CANCELED 178 H CANCELED 336 H < > CANCELED 106 H -- BUN -- 24 50 H 51 H < > 27 H 41 H -- CREATININE -- 2.14 H 3.72 H 3.50 H < > 3.05 H 3.79 H -- ALKPHOS -- 111 109 117 < > 119 140 H -- AST -- 18 14 14 < > 17 23 -- ALT -- 18 15 17 < > 14 21 -- BILITOT -- 0.5 0.5 0.3 < > 0.4 0.4 -- ALBUMIN -- 3.8 3.8 4.1 < > 3.8 3.6 -- < > = values in this interval not displayed. Serologies: Recent Labs 10/10/21 0935 10/03/21 0837 09/27/21 1037 09/19/21 0839 CMVQUANT 2170 A 158 A <35 A <35 A No results [...] TOXGP, TXM, RPRS, QFT4 Immunosuppression Goal Range: 2-4 Current Lab Frequency: weekly Please advise on any changes or recommendations. Thanks, Yolie Dubois R.N. *All labs are now found in [facility] Lab - Flowsheets. For further review of labs, please review there or under Synopsis* documented in this encounter Plan of Treatment Upcoming Encounters Date Type Specialty Care Team Description 04/24/2022 Appointment Laboratory Medicine Angélica Granger P.A.-C. [address] [place] [phone] 04/25/2022 Office Visit Otorhinolaryngology Dex Matta APRN, C.N.P., M.S.N. [address] [place] [phone] 05/08/2022 Appointment Laboratory Medicine Angélica Granger P.A.-C. [address] [place] [phone] 05/08/2022 Clinical Admitting/Central Communication Scheduling 05/10/2022 Appointment Radiology Jeremie Rose M.D. [address] [place] [phone] 05/10/2022 Comprehensive Visit Orthopedic Surgery Warner Graves M.D. [address] [place] [phone] 05/22/2022 Appointment Laboratory Medicine Angélica Granger P.A.-C. [address] [place] [phone] 06/05/2022 Appointment Laboratory Medicine Angélica Granger P.A.-C. [address] [place] [phone] 06/19/2022 Appointment Laboratory Medicine Angélica Granger P.A.-C. [address] [place] [phone] 07/03/2022 Appointment Laboratory Medicine Angélica Granger P.A.-C. [address] [place] [phone] 07/17/2022 Appointment Laboratory Medicine Angélica Granger P.A.-C. [address] [place] [phone] 07/31/2022 Appointment Laboratory Medicine Angélica Granger P.A.-C. [address] [place] [address] 08/14/2022 Appointment Laboratory Medicine Angélica Granger P.A.-C. [address] [place] [phone] 08/28/2022 Appointment Laboratory Medicine Angélica Granger P.A.-C. 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
--- OUTSIDE RECORDS SUMMARY | 2022-04-13 12:03 | XMS_ITS | Encounter Summary ---
:1955 Author Organization [facility] Address [address] [place] [id number] Care Team Providers Name Role Phone Elsewhere, Pcp Primary Care Provider Unavailable Reason for Visit Reason Comments Cough Shortness of Breath Encounter Details Date Type Department Care Team Description 10/12/[address] - [facility] Nick Frias M .D. [address] [place] [phone] Pneumonia (Primary Dx); [facility] [address] [place] [address] [phone] Hyperglycemia; [facility], Julian Sanchez M.D. [address] [place] [phone] Immunodeficiency Due To Drugs (HCC); Meghann Bowman M.D., Ph.D. [address] [place] [address] [phone] Transplant Liver (HCC); Glenn Vera Stephanie S, APRN, C.N.P. 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 - 10/16/2021 2:46 PM CDT DISCHARGE SUMMARY BRIEF OVERVIEW Hospital: [facility] Discharge Provider: Meghann Ansari M.D. Primary Team: [facility] Medicine 5 ([facility]) Primary Care Providers: Elsewhere, Pcp (General) No address on file Primary Care Provider Phone Number: None Primary Care Provider Fax Number: None Admission Date: 10/12/2021 Discharge Date: 10/16/2021 PRINCIPAL DIAGNOSIS Pneumonia SECONDARY DIAGNOSES Principal Problem: Pneumonia Active Problems: Cirrhosis Cryptogenic (HCC) Bipolar I Disorder (HCC) Transplant Liver (HCC) Chronic Cough Rhinosinusitis Chronic Anemia Shortness Of Breath Hyponatremia 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) Bronchiolitis Immunodeficiency Due To Drugs (HCC) Personal History Of Infectious And Parasitic Disease (COVID-19) Hyperglycemia Macrocytosis Lymphopenia Resolved Problems: * No resolved hospital problems. * DISCHARGE DISPOSITION Home or Self Care [1] ACTIVE ISSUES REQUIRING FOLLOW UP Diabetes Consulting Team Summary and Instructions: - Continue insulin NPH 20 in with morning before breakfast. - Please check your blood sugar once in the morning before breakfast, and once in the evening beforedinner. - Goal blood glucose level: 100-140. - Insulin dose will likely need to be decreased over the course of the next few days. We will plan to decrease your NPH insulin by roughly 10% once your evening blood sugar is under 140. Please see theinstructions below to contact the Diabetes team for assistance with this. Please call the diabetes consult service for assistance with insulin dose adjustment until that appointment. We ask that you call and ask for the Diabetes Nurse Educator at pager [phone] during the day between 7:30 am- 3:30 pm. We ask that you try to call between 7:30 a.m. and 9:00 a.m. after checking blood sugar and before eating or taking insulin. We anticipate blood glucose levels will fluctuate. If blood glucose levels are persistently below 80or above 200, please see your primary care provider for diabetes management. Please record blood glucoses in a record book. Bring record book, meter, and medications to follow-up appointments. We would recommend a follow-up appointment with your primary care physician in 7-10 days. OUTPATIENT FOLLOW UP Scheduled Appointments 10/17/2021 8:50 AM LAB 01 [facility] Medicine 10/24/2021 8:30 AM LAB 01 [facility] Medicine 10/31/2021 8:30 AM LAB 01 [facility] 11/07/2021 8:30 AM LAB 01 [facility] Medicine 11/14/2021 8:40 AM LAB 01 [facility] Medicine 11/21/2021 8:30 AM LAB 01 [facility] 11/28/2021 8:30 AM LAB 01 [facility] Laboratory Medicine 12/03/2021 8:50 AM LAB 01 [facility] Medicine 12/03/2021 9:10 AM LAB 01 [facility] Medicine 12/05/2021 11:45 AM DX JAIME [address] Radiology For appointment details refer to your Patient Appointment Guide. TEST RESULTS PENDING AT DISCHARGE Pending Labs Order Current Status Fungal / TB Culture, Special, Blood In process Fungal Culture, Routine In process Histoplasma Ab In process Bacteria / Marry Culture, Blood #1 Preliminary result Bacteria / Marry Culture, Blood #2 Preliminary result DETAILS OF HOSPITAL STAY REASON FOR ADMISSION Pneumonia Hyperglycemia Transplant Liver (HCC) 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) Immunodeficiency Due To Drugs (HCC) HOSPITAL COURSE Mr. Singh is a 66 y.o. 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 Mr. Singh lives alone in his own home in [place], [place]. He ambulates independently; he occasionally uses a walker at home. He reports he fell off a ladder earlier last year but otherwise denies any falls in the last year. He performs his own ADLs. 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 He denies any alcohol, drug or tobacco usage. Mr. Singh is and has been followed by multiple teams here at [facility] including Liver Transplant, Kidney/Pancreas Transplant, Nephrology (dialysis), Transplant Infectious Diseases, ENT, GI, and Pulmonology. Mr. Singh endorses chronic SOB at baseline; however, he notes this has worsened over the past month and much more over the past few days. He has also noticed a worsening cough and had a reported fever at home of 101 degrees. He normally would be able to walk around the block before he would feel short of breath. Over the last 10 days, he has felt more short of breath and could only walk a short distance prior to needing to sit down. Reports with this he feels like his heart is racing and he notes his HR has been to the 120s with exertion and he occasionally feels dizzy with this. He reports he has been coughing up thick phlegm at home. He denies a history of TERRY or oxygen usage. He reports he has not been diagnosed with COPD but reports he has been told he possibly may have COPD. He denies headache, vision changes, orthopnea, URI symptoms, coughing with eating, trouble swallowing, GERD, nausea, vomiting, diarrhea, constipation, dark or tarry stools, bloody stools, numbness, tingling, focal wea kness. On the day of admission, he was receiving his intermittent hemodialysis (Friday/Friday/Friday) and reported chills and fever, worsening dyspnea with exertion, frequent cough with mucus production and lightheadedness. He was advised to go to the emergency department at [facility] for further evaluation and management. In the [facility] ED, he was afebrile, heart rate was overall normal, respiratory rate was initially elevated at 32 but then normalized, blood pressure was normal and he was oxygenating well on room air. Laboratory workup included VBG, CBC, CMP, lactate, beta hydroxybutyrate, blood cultures, influenza and SARS-CoV-2; significant for hemoglobin 8.8, MCV 99.3, lymphocytes 0.38, sodium 124, potassium 4.7, BUN 35, creatinine 2.48, glucose 435, lactate 1.41, beta hydroxybutyrate 0.1. Chest x-ray showed no significant change since July 31, 2021; reticular nodular opacities in the mid and lower lungs noted. He was given 1 g IV ceftriaxone and 100 mg IV doxycycline. He was additionally given 5 units of aspartgiven hyperglycemia. He was then admitted to the Medicine 5 service for ongoing care. He was seen by infectious disease, liver transplant, endocrine, nephrology. He was worked up for infections in an immunocompromised host. Sputum grew serratia that was susceptible to Bactrim. The patient will continue treatment for a total 7 days. He will also continue oral vancomycin. For slow prednisone taper, he had elevated serum glucose levels. He was seen by the DCS service and started on insulin. He received education on glucose monitoring. On the day of discharge (10/16), the tunneled dialysis line was removed. The primary team touched base with Endocrinology, Hepatobiliary, and ID, and all agreed that the patient was stable for discharge home. The patient will get a follow-up CT chest in 4 weeks. CONSULTS ORDERED DURING THIS ADMISSION IP CONSULT TO DIETITIAN IP CONSULT TO HEPATOLOGY IP CONSULT TO NEPHROLOGY IP CONSULT TO DIABETES IP CONSULT TO INFECTIOUS DISEASES IP CONSULT TO STAFF RESEARCH ASSOCIATE CONDITION AT DISCHARGE improved Discharge instructions were provided to the patient and caregiver(s). documented in this encounter Discharge Instructions Discharge InstructionsChari Hoang - 10/15/2021 8:45 AM CDT You were discharged from the [facility] Medicine 5 ([facility]) Service. Please identify this service name if you call with questions after hospitalization. Patient InstructionsMercedes Yip M.S., CCC-WATERPROOFING MIXER - 10/15/2021 4:07 PM CDT SPEECH-LANGUAGE PATHOLOGY DYSPHAGIA DISCHARGE SUMMARY DATES SEEN: 10/14/2021- 10/15/2021 EVALUATION TYPE: Clinical Bedside Swallow Eval RESULTS: No signs or symptoms of aspiration with any tested consistency At time of discharge Mr. Singh is tolerating regular diet and thin liquids RECOMMENDATIONS: Diet Recommendation-Solids: Regular Diet Recommendation-Liquids: Thin Medication Recommendation: Whole, With liquid Safety Precautions: Sit upright, eat/drink slowly, take small bites/sips one at a time No further Speech Pathology services are recommended at this time. If the patient develops loss of function or has a change in status an evaluation may be warranted. Discharge information provided on 10/15/2021 by Mercedes Yip M.S., CCC-WATERPROOFING MIXER Contact information: [facility], Department of Neurology, AttachmentsThe following attachments cannot be sent through Care Everywhere. Fluticasone (Into the nose) (Turkmen)documented in this encounter Medications at Time of [...] mouth daily with 100-1 mg tablet dinner. ondansetron (ZOFRAN) 4 Take 1 tablet (4 mg 20 tablet 0 02/2021 mg tablet total) by mouth every 8 (eight) hours as needed for nausea or vomiting. predniSONE (DELTASONE) 5 Take 1 tablet (5 mg 30 tablet 0 mg tablet total) by mouth daily. traZODone (DESYREL) 100 Take 1 tablet (100 90 tablet 3 0312/202108/27/2022 mg tablet mg total) by mouth at bedtime as needed for sleep. darbepoetin Inject 0.3 mL (60 1 Syringe 6 01/09/2021 michelle-polysorbate mcg total) under (Aranesp, in the skin once for 1 polysorbate,) 60 mcg/0.3 dose. Hold if Hgb mL injection greater than 11 g/dL. Give once every 28 days. NIFEdipine XL (PROCARDIA Take 20 mg by mouth 0 XL) 30 mg 24 hr tablet daily. predniSONE (DELTASONE) Take 1 tablet (10 14 tablet 0 202111/10/2021 10 mg tablet mg total) by mouth daily for 14 doses. predniSONE (DELTASONE) Take 3 tablets (7.5 42 tablet 0 /2 06/202111/24/2021 2.5 mg tablet mg total) by mouth daily for 14 doses. predniSONE (DELTASONE) Take 1 tablet (20 10 tablet 0 202110/27/2021 20 mg tablet mg total) by mouth daily for 10 doses. budesonide (PULMICORT) ADD 1 RESPULE TO 8 [...] 10/22/2021 200 mg tablet MOUTH TWICE DAILY levothyroxine Take 1 tablet (25 90 tablet [...] or open Cytomegalovirus (HCC), capsules. Medication Therapy Jail Not Anticoagulant NIFEdipine XL (PROCARDIA Take 1 tablet (30 270 tablet 3 09/2211/23/2021 XL) 30 mg 24 hr mg total) by mouth tabletIndications: daily. Hypertension And Chronic Kidney Disease Stage 4 (HCC) sulfamethoxazole-trimeth Take 1 tablet by 60 tablet [...] 1 each 0 10/1612/10/2021 for steroid-induced hyperglycemia. insulin NPH (HumuLIN N Inject 20 Units 18 mL 0 10/17/19 22 10/26/2021 NPH Insulin KwikPen) 100 under the skin unit/mL (3 mL) injection every morning. lancets 2 each daily. 180 each 3 10/16/2021 12/10/2021 pen needle, diabetic 1 Injection daily. 90 each 0 022 12/10/2021 (Novofine 32) 32 gauge x 1/4 needle documented as of this encounter Progress Notes Elissa Wilcox, RAMONA, C.N.P. - 10/16/2021 1:26 PM CDT SUBJECTIVE Mr. Singh was seen and examined in his hospital room. He is in good spirit today. He states his dyspnea on exertion is getting slightly better. He reports he was able to tolerate his dialysis well. He has no concerns for his dialysis. He has requested his dialysis session tomorrow at 8:30 a.m. I have reviewed the current medication list. OBJECTIVE Admission Weight: 71.1 kg Current Weight: 69.1 kg VITAL SIGNS Temperature: [36.4 ??C-36.7 ??C] 36.4 ??C Resp Rate: [16-18] 18 Blood Pressure: (112-135)/(57-75) 127/72 SpO2: [99 %-100 %] 99 % Pulse Rate: [65-90] 90 Intake/Output Summary (Last 24 hours) at 10/16/2021 1326 Last data filed at 10/16/2021 1100 Gross per 24 hour Intake 870 ml Output 1450 ml Net -580 ml PHYSICAL EXAM General appearance: alert and no distress Lungs: Normal respiratory effort at room air Extremities: No pitting edema in bilateral lower extremities Vessels: Right upper extremity AV fistula. He is using 16 gauge needle in both arterial and venous. Right IJ tunnel hemodialysis catheter exit site is covered with gauze. Gauze is clean and dry. DIAGNOSTICS Lab results last 24 hours: Recent Results (from the past 24 hour(s)) Glucose, POCT Collection Time: 10/15/21 5:24 PM Result Value Glucose, POCT, B 194 (H) Site Capillary Last Intake 3-4 hours Glucose, POCT Collection Time: 10/15/21 8:15 PM Result Value Glucose, POCT, B 351 (H) Site Capillary Last Intake 2-3 hours Glucose, POCT Collection Time: 10/16/21 12:31 AM Result Value Glucose, POCT, B 136 Site Capillary Last Intake > 4 hours Glucose, POCT Collection Time: 10/16/21 2:12 AM Result Value Glucose, POCT, B 119 Site Capillary Last Intake > 4 hours Glucose, POCT Collection Time: 10/16/21 4:25 AM Result Value Glucose, POCT, B 102 Site Capillary Last Intake > 4 hours Glucose, POCT Collection Time: 10/16/21 5:54 AM Result Value Glucose, POCT, B 99 Site Capillary ASSESSMENT / PLAN #1 End-stage kidney disease secondary to??calcineurin inhibitor toxicity and bilateral renal artery stenosis, maintained on incenter hemodialysis since??06/15/2021 #2 Admitted on??10/12/2021??for evaluation of shortness of breath, cough, fever with symptoms worsening over the past 10 days #3??Status post liver transplant on 05/25/1999 for autoimmune hepatitis with retransplantation on 06/13/2013 for 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 has no acute indication that he needs a session of dialysis today. His post dialysis weight was 69.1 kg yesterday. His target dry weight is set at 70.0 kg in the outpatient setting. His mostrecent blood pressure was 127/72 with pulse at 90 bpm. We plan next dialysis tomorrow morning. New Recommendations: -- Hemodialysis next on Friday -- CBC, BMP, magnesium and phosphorus with a.m. labs -- Please remove his right IJ tunnel hemodialysis catheter by Interventional Radiology because his right AV fistula has been working well. Nursing in [facility] is comfortable withthe dialysis catheter removal. He has agreed to the plan. ?? Continued Recommendations:?? -- Dialyzes on??Friday, Friday, Friday schedule through his right upper extremity AV fistula using 16 gauge needle -- Dose medications for patients that require hemodialysis -- Ok to remove renal dialysis restrictions and fluid restriction based on current laboratory values. Recommend continuing sodium restriction of 2 g daily. -- Dialyvite one tablet each evening -- Daily weights, standing if possible -- Strict I&O monitoring -- EMLA cream to AV fistula 30 minutes prior to dialysis on dialysis days, nephrology will order -- He was receiving IV Epogen 6000 units 3 times per week during dialysis on Friday, Friday and Friday while in the outpatient setting. His IV Epogen was increased to 9000 units starting October 15 inthe setting of rapid downtrending hemoglobin level while in the hospital. -- Continues on??nifedipine XL 30 mg p.o. daily (I note that he takes 90 mg daily in the outpatient setting) and torsemide 30 mg PO daily -- Recommend administering antihypertensive medications after dialysis on dialysis days to minimize intradialytic hypotension -- Continues on cefepime 500 mg daily., appreciate renal dosing. Please ensure that this administered after dialysis on dialysis days ?? Disposition: -- Please keep Nephrology informed regarding?disposition as it becomes known so that wecan ensure that their outpatient hemodialysis needs have been arranged appropriately. ?Plan was reviewed with his inpatient nephrology ibm web[employer] commerce consultant Dr. Coker. Thank you for the opportunity to participate in??'s care. For questions or concerns, please page the??Neph A ESRD pager at [phone] Rachelle Maldonado, ROSARIO, DAKOTA - 10/16/2021 10:09 AM CDT Asked by Diabetes Consulting service to see patient regarding Medical Nutrition Therapy for diabetes. Visited with patient for diet education regarding general introduction to DM diet and consistent carbohydrate meal planning. Diabetes summary: Steroid-induced hyperglycemia Nutrition Diagnosis: Food/nutrition-related knowledge deficit related to no/limited prior diabetes nutrition education as evidenced by DCS provider consult. Reviewed basic guidelines and principles of medical nutrition therapy for diabetes self-management, including: identified carbohydrate food groups, encouraged general healthy portion control and balance using the plate method, demonstrated label reading for carbohydrate content, discussed non-carb snacking and consistent carbohydrates at mealtimes. . See patient education record for education materials provided today. Patient stated goal is to identify carbohydrate foods in current diet, watch portion sizes more closely and avoid between meal and bedtime snacking of carbohydrate-containing foods. Anticipate adherence will be good. Follow up: will follow up with a dietitian as needed and encouraged further outpatient follow-up. The DCS Registered Dietitian can be reached at pager: [phone] Chelsy Rojas M.D., M.P.H. - 10/16/2021 8:04 AM CDT Diabetes Consulting Service Progress Note SUBJECTIVE LOS: 4 days DCS continues to follow this 66 y.o. 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 He notes tremors, nausea, shaking. His last meal yesterdaywas at 6pm, and did not snack in between dinner and bedtime, and his blood glucose reading 2 hours after dinner was 307. PREADMISSION THERAPY: none OBJECTIVE Patient resting comfortably in bed this morning, most of his symptoms of nausea/shaking have resolved though he does report a residual mild tremor. Blood glucose results in last 24 hours: Recent Labs 10/15/21 0808 GLUCOSE 131 Yesterday, given: NPH 25 u Steroids: Prednisone 20 mg Current Diet Adult Diet Regular; 2,000 mg Na; 60 gm Carbs (per meal) starting at 10/14 1028 VITALS Temperature: 36.7 ??C Resp Rate: 16 Blood Pressure: 112/57 BP Location: Left arm;Upper SpO2: 100 % BMI (Calculated): 21.9 kg/m?? Height: 177.8 cm Weight: 69.1 kg Body mass index is 21.86 kg/m??. LABORATORY Lab Results Component Value Date CREATININE 4.41 (H) 10/15/2021 Estimated Creatinine Clearance: 15.9 mL/min (A) (by C-G formula based on SCr of 4.41 mg/dL (H)). ASSESSMENT / PLAN # Steroid-induced hyperglycemia Started on 14u NPH qAM day of admission with persistent postprandial hyperglycemia in the 300s, requiring a total of 24u of correction scale insulin. With increase of NPH to 25u the following day, he did respond well with well maintained postprandial sugars, though he did have a reading of 319 prior to dinner. He was kept on 25u NPH yesterday, and had a reading of 307 at bedtime, though this was checked just 2h after dinner. Due to his AM glucose being below goal range, we have decreased his NPH to 20u this morning. Fortunately, despite his symptoms, he did not have any recorded glucose readings in the hypoglycemic range. Symptoms likely from relative hypoglycemia from the dip 350 -> 100s. We will adjust his glucose monitoring to twice a day. With his steroid induced hyperglycemia, we anticipate that his pre-lunch glucose will be high, as well as his bedtime glucose as the effect has worn off. Since this is anticipated, we do not want to correct at these times. Thus, we will only check his sugars in the AM before breakfast, and pre-dinner as that will give us a sense of how much we need to modify his NPH dose. PLAN - Blood glucose monitoring: twice daily, AM and pre-dinner - Glucose goal: 140-180 mg/dL - Basal: NPH 20 units. - Mealtime: No mealtime insulin. - in favor of outpatient convenience of insulin administration while he continues to be on supraphysiologic doses of prednisone - Correction scale: NovoLog individualized correction scale : (140-179= 0 units; 180-219= 2 units; 220-259= 4 units; 260-299= 6 units; 300-339= 8 units; 340-379= 10 units; 380-399= 12 units) - DCS will evaluate and adjust insulin doses as indicated to achieve glycemic goal. ANTICIPATED DISMISSAL PLAN: Likely NPH qAM, final dismissal dose to be determined - duration for as long as prednisone dose is >5mg Blood glucose frequency: four times daily Goal: 140-180 mg/dL Please page DCS within 24 hours prior to hospital dismissal for final dismissal recommendations. Bruce Singh's case and plan of care was discussed with Dr.Pankaj Palacio. Please see supervisorynote for further details. For questions, please utilize the DCS Resident service pager [phone]. Chelsy Rojas, PGY-1 Internal Medicine [phone] Associated attestation - Sachin Palacio M.D. - 10/16/2021 12:24 PM CDT I saw and evaluated the patient, participating in the garcia portions of the service. I reviewed Dr. Rojas's note. I agree with Dr. Rojas's findings and plan, including cutting back on the dose of NPH insulinto 20 units starting today. Carlos Reese D.O. - 10/16/2021 7:09 AM CDT TRANSPLANT INFECTIOUS DISEASES E-PROGRESS NOTE SUBJECTIVE Reason for Consult: Patient is a 66 y.o. male admitted 10/12/2021 evaluated by infectious diseases for s/p liver transplant, on immunosuppression; hx CMV colitis, C. diff, serratia marcescens, abnormal CT chests; admitted w/ concern for pneumonia. Events over the past 24 hours: Remains afebrile hemodynamically stable. Saturating 100% on room air. Patient was not seen or examined. OBJECTIVE Admission Weight: 71.1 kg Current Weight: 69.1 kg PHYSICAL EXAM VITAL SIGNS Temp (24hrs), Av.5 ??C, Min:36.4 ??C, Max:36.7 ??C Temperature: [36.4 ??C-36.7 ??C] 36.7 ??C Resp Rate: [16-20] 16 Blood Pressure: (112-147)/(57-78) 112/57 SpO2: [99 %-100 %] 100 % Pulse Rate: [60-74] 65 Wt 69.1 kg BMI 21.86 kg/m?? Lines: Lines, Drains, and Airways Timeline Line Duration Hemodialysis Catheter Permanent (tunneled, implanted) Right Chest 137d 14h Peripherally inserted central catheter Duration PICC Single Lumen 06/14/21 Permanent (tunneled, implanted) Valved Left Chest 123d 19h Peripheral IV Duration Peripheral IV Catheter 10/12/21 18 G Left Forearm 3d 17h Hemodialysis AV Access Duration Hemodialysis AV Access Right AV Fistula 83d 19h Wound Duration Wound (NEW) 07/24/21 Incision Arm Right;Lower 83d 19h Wound (NEW) 07/26/21 Incision Nose 81d 19h DIAGNOSTICS 10/10/2021, CMV DNA quant: 2170 10/12/2021, flu/SARS-CoV-2 PCR: Undetected 10/12/2021, blood cultures: Pending 10/12/2021, respiratory pathogen panel: Negative 10/12/2021, sputum PCP PCR: Pending 10/12/2021, sputum culture: 2+ Serratia species, susceptibility pending 10/13/2021, Serum cryptococcal antigen: Negative 10/13/2021, serum Fungitell: Negative 10/13/2021, fungal TB blood culture: No growth to date 10/13/2021, urine Blastomyces antigen: Pending 10/13/2021, serum Histoplasma antibody: Pending 10/13/2021, serum Blastomyces antibody: Negative 10/13/2021, urine Blastomyces antigen: Negative MEDICATIONS Present anti-infective therapies include ceFEPIme, 500 mg, Daily before dinner sulfamethoxazole-trimethoprim, 1 tablet, Daily valGANciclovir, 450 mg, Q48H vancomycin, 125 mg, BID Current immunosuppressant medications: mycophenolate, 250 mg, BID [START ON 10/27/2021] predniSONE, 10 mg, Daily In followed-by linked group with [START ON 11/10/2021] predniSONE, 7.5 mg, Daily In followed-by linked group with [START ON 11/24/2021] predniSONE, 5 mg, Daily predniSONE, 20 mg, Daily tacrolimus, 0.5 mg, BID ASSESSMENT / PLAN 66-year-old male with history of repeat liver transplant on chronic immunosuppression, end-stage kidney disease on hemodialysis who presents from dialysis center with fever and shortness of breath. ?? 1. Bibasilar micronodular opacities with bronchial wall thickening, mildly progressed since May2021, noninvasive fungal workup negative to date 2. Fever during outpatient dialysis 10/12/2021, bloodstream infection ruled out 3. 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 valganciclovir July 2021 5. 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 Chronic rhinosinusitis with recurrent aspiration status post sinus surgery 08/28/2021 7. Recurrent C diff infection, last episode 05/24/2021 8. End-stage kidney disease on IHD via brachiocephalic fistula Dialysis related bacteremia ruled out with negative cultures. The patient is feeling improved overall with workup today notable for Serratia growth from sputum culture. CT findings are atypical for typical bacterial pneumonia, however, this may represent an aspiration event. We will plan to treat witha 7 day course targeting Serratia species with Bactrim (which will be continued indefinitely in the setting of PCP prophylaxis). There is less suspicion for an invasive fungal process owing to a negative Fungitell and endemic mycosis workup to date. Will need repeat noncontrast CT chest in 4 weeks with bronchoscopic evaluation/ ICH protocol if persistent/worsening pulmonary findings. Regarding CMV viremia, patient was started on therapy on 10/13/2021 at which time he without withoutsymptoms to suggest invasive CMV disease. Will need weekly serial quant until negative x2 with likely 3 to 6 months of prophylaxis pending improvement in lymphopenia (already improving since decrease in steroid dosing). RECOMMENDATIONS 1. Stop cefepime and p.o. vancomycin 2. Continue valganciclovir 450 mg p.o. Q 48 hours 3. Continue Bactrim single strength 1 tablet daily as pneumocystis/opportunistic infection prophylaxis, will cover for the Serratia isolated in sputum ID will sign off. Please page [phone] with questions. Discussed with Dr. Tello. Carlos Reese D.O., Pager [phone] Transplant Infectious Diseases Fellow TRANSPLANT INFECTIOUS DISEASES SIGN OFF NOTE Primary Team 4. Sign off antibiotics: 1. Bactrim single strength 1 tablet daily as pneumocystis/opportunistic infection prophylaxis, will cover for the Serratia isolated in sputum 2. Valganciclovir 450 mg p.o. Q 48 hours, end date to be determined pending response to therapy 5. Other test: Repeat noncontrast CT chest on 11/12/2021 6. Laboratory monitoring recommended Yes, weekly on antibiotics. CMV DNA quant at least until 2 consecutive undetected levels 2 weeks apart 7. Monitoring lab recommendations: Labs should be reviewed by the primary service (by the appropriate transplant or LVAD coordinator). If there are any questions, please contact Transplant Infectious Disease for assistance. Please fax the results to [phone] (liver). Infectious Diseases 1. PICC/Therapy: PICC/Therapy: Not applicable. Follow up indicated: Followup to be organized by Transplant Infectious Diseases for a follow-up visit the week of 11/12/2021 Carlos Reese D.O., Pager [phone] Transplant Infectious Diseases Fellow Associated attestation - Damian Tello M.D. - 10/16/2021 4:54 PM CDT The patient's case was discussed with Dr.Eric Reese and I agree with his progress report and plan of care. Current workup is significant only for the isolation of Serratia and this is currently being treatedwith intravenous cefepime. For dismissal we will transition, we will transition this to Bactrim. Continue valganciclovir for CMV viremia continue weekly CMV PCR monitoring. Final duration of valganciclovir will depend on response to treatment. Follow up the Transplant [facility]. Damian Tello M.D. Meghann Ansari M.D., Ph.D. - 10/15/2021 9:[address] [facility] ([place], [place]) 5 ([facility]) Progress Note SUBJECTIVE The patient was seen on rounds during regular HD session. He had an uneventful night and no concerns. I have reviewed the current medication list. OBJECTIVE VITAL SIGNS Temperature: [36.4 ??C-36.5 ??C] 36.4 ??C Resp Rate: [17-20] 17 Blood Pressure: (120-147)/(64-78) 135/75 SpO2: [99 %-100 %] 100 % Weight: [69.1 kg-70.3 kg] 69.1 kg BMI (Calculated): [21.9 kg/m??-22.2 kg/m??] 21.9 kg/m?? Pulse Rate: [55-74] 74 PHYSICAL EXAM General: alert, oriented, and no distress; resting comfortably during dialysis. Cardiac: normal S1, S2 Resp: equal breath sounds bilaterally Abdomen: soft, non-tender DIAGNOSTICS I have independently reviewed labs, notes, and diagnostics. ASSESSMENT / PLAN Mr. Singh is hospitalized on [facility] 5 ([facility]) for evaluation and management of Pneumonia. 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 Singh has ESRD on hemodialysis, awaiting renal transplant; autoimmune hepatitis status post liver transplantation in 1998, re-transplantation in May 2013, on chronic immunosuppression with CellCept, tacrolimus and prednisone; bipolar disorder, who presented to the hospital with worsening SOB, fever and cough. # Fever, SOB, cough - appreciate ID recommendations - continue antibiotics and PCP prophylaxis # Hyperglycemia, steroid induced - on slow steroid taper - DCS assisting with insulin regimen ?? # 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) # Hyponatremia # Awaiting renal transplant # Renal artery stenosis s/p stenting - HD MWF ?? # Cirrhosis Cryptogenic (HCC) # Transplant Liver (HCC) # Immunodeficiency Due To Drugs (HCC) - GI following; tacrolimus level 2.0 (on 10/15) ?? # Bipolar I Disorder (HCC) - continue home lamictal ?? # Anemia of renal disease # History of positive HemoQuant # Macrocytosis # Lymphopenia Diet: Adult Diet Regular; 2,000 mg Na; 60 gm Carbs (per meal) Tubes/lines: PIV VTE prophylaxis: heparin Current Activity/Mobility: BMAT Level 4 (Able to stand and walk; needs staff assist if fall risk factors identified) Disposition: Home Stable to discharge criteria (not yet met): Labs and Tests/procedures/consults Counseling was provided [id number] at bedside regarding the plan of care as stated above. I personally spent over half of a total 35 minutes in counseling and coordination of care as documented above. Mercedes Yip M.S., [facility] - 10/15/2021 4:04 PM CDT Both patient and nurse confirm that patient is tolerating current regular diet and thin liquids withno concerns for s/s of aspiration. Patient continues to complain of baseline cough but this is not exacerbated with oral intake. Reviewed general safe swallowing strategies. [employer] will sign off at this time. Please reconsult if new concerns arise. (No charge submitted) Electronically signed by Mercedes Yip M.S., [facility] at 10/15/2021 4:05 PM CDT Mercy Wise I. R.N. - 10/15/2021 2:26 PM CDT REASON FOR VISIT Diabetes education for type prediabectic, steroid induced hyperglycemia,. Consulted per Diabetes Consult Service to provide Diabetes Education. Educational visit, I met with Mr. Singh for review of his insulin program, diabetes overview, and to answer any questions he may have about his diabetes. He will DC home on new insulin NPH QD, per Endo. We discussed his goal range of 100-140. PATIENT EDUCATION PROVIDED. Yes education was provided and he verbalized understanding of information provided. Monitoring: check your blood sugar BID. Diabetes Overview, given. ([id number]) Glucometer: Proper use and techniques, VOD Hypoglycemia: parameters, symptoms, and treatment, given. ([id number]) Injection site rotation per ([id number]) Insulin storage Guidelines [facility] Division of Endocrinology : Insulin Storage/Expiration information, handout given. Monitoring your Blood Glucose: Do not eat or drink any foods with calories/CHO for 4 hours before checking your blood sugar. You can drink water, diet soda, coffee or tea without added calories, per ([id number]) Using Insulin Pens, Verbalized proper use, and VOD, given. ([id number]) Medication: Insulin, given, per ( 0499-05) Insulin Types: NPH: Insulin onset, peak, and duration per (AG6632-70) Insulin Programs: NPH: when to check blood sugars before breakfast and evening meal. Take your insulin per your AVS, per ([id number]) Record book, done, given. Call in information and numbers, given. ASSESSMENT/PLAN Mr. Singh had no question about his diabetes or the insulin program. He understands as his steroids taper down so likely will his insulin requirements. I recommended that he call his doctor for advice on insulin dose adjustment as he is tapering his steroid. He understands the effects steroids have on his blood sugar. We discussed snacking, healthy snacking options, and low/ no CHO. We reviewed mixing the NPH before use. We reviewed when fasting for a test do not take your insulin until he eats his breakfast. He will use our call in service for insulin dose adjustment for 1 week after hospitalization. I recommended that if he notices his blood sugar running outside his goal range to give his PCPa call for advice. OUTCOME I encouraged that he look on his AVS for final insulin dose recommendations. Inpatient Diabetes Education complete; please re-consult Diabetes Education if further educational needs arise. Chelsy Rojas M.D., M.P.H. - 10/15/2021 12:41 PM CDT Diabetes Consulting Service Progress Note SUBJECTIVE LOS: 3 days DCS continues to follow this 66 y.o. year-old male for steroid-induced hyperglycemia admitted on 10/12/2021 PREADMISSION THERAPY: none OBJECTIVE Patient not seen this morning. Blood glucose results in last 24 hours: Recent Labs 10/15/21 0808 GLUCOSE 131 Yesterday, given: NPH 25 u Steroids: Prednisone 20 mg Current Diet Adult Diet Regular; 2,000 mg Na; 60 gm Carbs (per meal) starting at 10/14 1028 VITALS Temperature: 36.5 ??C Resp Rate: 20 Blood Pressure: 137/75 BP Location: Left arm;Upper SpO2: 99 % BMI (Calculated): 22.2 kg/m?? Height: 177.8 cm Weight: 70.3 kg Body mass index is 22.24 kg/m??. LABORATORY Lab Results Component Value Date CREATININE 4.41 (H) 10/15/2021 Estimated Creatinine Clearance: 16.2 mL/min (A) (by C-G formula based on SCr of 4.41 mg/dL (H)). ASSESSMENT / PLAN # Steroid-induced hyperglycemia Started on 14u NPH qAM day of admission with persistent postprandial hyperglycemia in the 300s, requiring a total of 24u of correction scale insulin. With increase of NPH to 25u, he did respond well with well maintained postprandial sugars, though he did have a reading of 319 prior to dinner. This wasunexpected as NPH would typically cause a higher pre-lunch glucose as it would not as adequately cover breakfast. It is possible he had a mid-afternoon meal to contribute to the spike. As his AM glucose is down to 91 from 157 at bedtime - which is expected for his steroid-induced hyperglycemia - we will gently decrease his NPH for tomorrow morning to 20 u as he will likely start the day at a lower glucose again. We have also adjusted his correction scale to an individualized one so he is not getting too much short-acting insulin at lower sugars. PLAN - Blood glucose monitoring: four times daily - Glucose goal: 140-180 mg/dL - Basal: NPH 20 units. - Mealtime: No mealtime insulin. - in favor of outpatient convenience of insulin administration while he continues to be on supraphysiologic doses of prednisone - Correction scale: NovoLog individualized correction scale : (140-179= 0 units; 180-219= 2 units; 220-259= 4 units; 260-299= 6 units; 300-339= 8 units; 340-379= 10 units; 380-399= 12 units) - DCS will evaluate and adjust insulin doses as indicated to achieve glycemic goal. ANTICIPATED DISMISSAL PLAN: Likely NPH qAM, final dismissal dose to be determined - duration for as long as prednisone dose is >5mg Blood glucose frequency: four times daily Goal: 140-180 mg/dL Please page DCS within 24 hours prior to hospital dismissal for final dismissal recommendations. Bruce Singh's case and plan of care was discussed with Dr.Pankaj Palacio. Please see supervisorynote for further details. For questions, please utilize the DCS Resident service pager [phone]. Chelsy Rojas, PGY-1 Internal Medicine [phone] Associated attestation - Sachin Palacio M.D. - 10/15/2021 6:14 PM CDT I saw and evaluated the patient, participating in the garcia portions of the service. I reviewed Dr. Rojas???s note. I agree with Dr. Rojas???s findings and plan, including considering reducing the dose of NPH tomorrow. Carlos Reese D.O. - 10/15/2021 12:31 PM CDT TRANSPLANT INFECTIOUS DISEASES PROGRESS NOTE SUBJECTIVE Reason for Consult: Patient is a 66 y.o. male admitted 10/12/2021 evaluated by infectious diseases for s/p liver transplant, on immunosuppression; hx CMV colitis, C. diff, serratia marcescens, abnormal CT chests; admitted w/ concern for pneumonia. Events over the past 24 hours: Remains afebrile hemodynamically stable. Lymphopenia improving, hemoglobin 8.2. Patient seen and examined this morning during hemodialysis. He reports feeling slightly better overall. He was able to walk to the restroom without feeling short of breath, however he has not yet left his room to walk the halls. OBJECTIVE Admission Weight: 71.1 kg Current Weight: 70.3 kg PHYSICAL EXAM VITAL SIGNS Temp (24hrs), Av.4 ??C, Min:36.3 ??C, Max:36.5 ??C Temperature: [36.3 ??C-36.5 ??C] 36.5 ??C Resp Rate: [16-20] 20 Blood Pressure: (120-144)/(60-78) 137/75 SpO2: [96 %-100 %] 99 % Pulse Rate: [55-73] 60 Wt 70.3 kg BMI 22.24 kg/m?? General: Not in acute distress, Alert, oriented HEENT: No scleral icterus, PERRLA, moist mucus membranes, no oral lesions Neck: No LAD, non tender CVS: S1, S2. RRR, no murmurs Lungs: Bilateral rhonchi throughout Abdomen: Soft, nontender, non distended, Bowel sounds present Extremities: No Lower extremity edema Skin: no rashes or lesions Lines: Lines, Drains, and Airways Timeline Line Duration Hemodialysis Catheter Permanent (tunneled, implanted) Right Chest 136d 20h Peripherally inserted central catheter Duration PICC Single Lumen 06/14/21 Permanent (tunneled, implanted) Valved Left Chest 123d 0h Peripheral IV Duration Peripheral IV Catheter 10/12/21 18 G Left Forearm 2d 22h Hemodialysis AV Access Duration Hemodialysis AV Access Right AV Fistula 83d 0h Wound Duration Wound (NEW) 07/24/21 Incision Arm Right;Lower 83d 0h Wound (NEW) 07/26/21 Incision Nose 81d 0h DIAGNOSTICS 10/10/2021, CMV DNA quant: 2170 10/12/2021, flu/SARS-CoV-2 PCR: Undetected 10/12/2021, blood cultures: Pending 10/12/2021, respiratory pathogen panel: Negative 10/12/2021, sputum PCP PCR: Pending 10/12/2021, sputum culture: 2+ Serratia species, susceptibility pending 10/13/2021, Serum cryptococcal antigen: Negative 10/13/2021, serum Fungitell: Pending 10/13/2021, fungal TB blood culture: Pending 10/13/2021, urine Blastomyces antigen: Pending 10/13/2021, serum Histoplasma antibody: Pending 10/13/2021, serum Blastomyces antibody: Pending MEDICATIONS Present anti-infective therapies include ceFEPIme, 500 mg, Daily before dinner sulfamethoxazole-trimethoprim, 1 tablet, Daily valGANciclovir, 450 mg, Q48H vancomycin, 125 mg, BID Current immunosuppressant medications: mycophenolate, 250 mg, BID [START ON 10/27/2021] predniSONE, 10 mg, Daily In followed-by linked group with [START ON 11/10/2021] predniSONE, 7.5 mg, Daily In followed-by linked group with [START ON 11/24/2021] predniSONE, 5 mg, Daily predniSONE, 20 mg, Daily tacrolimus, 0.5 mg, BID ASSESSMENT / PLAN 66-year-old male with history of repeat liver transplant on chronic immunosuppression, end-stage kidney disease on hemodialysis who presents from dialysis center with fever and shortness of breath. ?? 1. Bibasilar micronodular opacities with bronchial wall thickening, mildly progressed since May2021, query invasive fungal process, endemic mycosis 2. Fever at dialysis, query bloodstream infection, rule out pulmonary infection 3. 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 valganciclovir July 2021 5. 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 Chronic rhinosinusitis with recurrent aspiration status post sinus surgery 08/28/2021 7. Recurrent C diff infection, last episode 05/24/2021 8. End-stage kidney disease on IHD via brachiocephalic fistula Dialysis related bacteremia ruled out with negative cultures. The patient is feeling improved overall with workup today notable for Serratia growth from sputum culture. CT findings are atypical for typical bacterial pneumonia, however, this may represent an aspiration event. We will plan to treat witha 7 day course targeting Serratia species while awaiting remainder of noninvasive fungal workup. Should workup remain negative, will need repeat CT in 4 weeks with bronchoscopic evaluation/ ICH protocol if persistent/worsening pulmonary findings. Regarding CMV viremia, patient was started on therapy on 10/13/2021 at which time he without withoutsymptoms to suggest invasive CMV disease. Will need weekly serial quant until negative x2 with likely 3 to 6 months of prophylaxis pending improvement in lymphopenia (already improving since decrease in steroid dosing). RECOMMENDATIONS 1. Continue cefepime 500 mg IV once daily, anticipate 7 day course 2. Continue valganciclovir 450 mg p.o. Q 48 hours 3. Continue p.o. vancomycin 125 mg b.i.d. while on systemic antibiotics 4. Follow-up noninvasive fungal workup 5. Continue Bactrim single strength 1 tablet daily as pneumocystis/opportunistic infection prophylaxis We will continue to follow. Please page [phone] with questions. Discussed with Dr. Tello. Carlos Reese D.O., Pager [phone] Transplant Infectious Diseases Fellow Associated attestation - Damian Tello M.D. - 10/15/2021 5:59 PM CDT The patient was seen and examined at the dialysis suite together with Dr. Carlos Reese and I agree with his history, physical examination findings, and plan of care. This is a 66-year-old male with history of repeat liver transplant on chronic immunosuppression, end-stage kidney disease on hemodialysis who presents from dialysis center with fever and shortness of breath. The patient is feeling improved overall today with workup notable for Serratia growth from sputum culture. CT findings are atypical for typical bacterial pneumonia, however, this may represent anaspiration event. We will plan to treat with a 7 day course targeting Serratia species while awaiting remainder of noninvasive fungal workup. Should workup remain negative, will need repeat CT in 4 weeks with bronchoscopic evaluation/ ICH protocol if persistent/worsening pulmonary findings. Will continue to follow. Damian Tello M.D. Anthony Cordero R.R.T., L.R.T. - 10/15/2021 9:49 AM CDT COPD RT visit not conducted. Patient is at Dialysis. RT Will attempt to see again. Elissa Wilcox APRN, C.N.P. - 10/15/2021 9:35 AM CDT SUBJECTIVE Mr. Singh was seen and examined while receving intermittent hemodialysis in [facility].He states his dyspnea is getting slightly better. Denies chest pain or muscle cramping during dialysis. He has not been eating well in the hospital because of the renal restriction diet but is eating better after the recent diet change. I have reviewed the current medication list. OBJECTIVE Admission Weight: 71.1 kg Current Weight: 70.3 kg VITAL SIGNS Temperature: [36.3 ??C-36.6 ??C] 36.5 ??C Resp Rate: [16-20] 20 Blood Pressure: (120-142)/(60-74) 129/73 SpO2: [96 %-100 %] 99 % Pulse Rate: [55-73] 60 Intake/Output Summary (Last 24 hours) at 10/15/2021 0939 Last data filed at 10/15/2021 0909 Gross per 24 hour Intake 1765 ml Output 2025 ml Net -260 ml PHYSICAL EXAM General appearance: alert and no distress Lungs: clear to auscultation bilaterally Heart: Regular rate and rhythm Extremities: No pitting edema in bilateral lower extremities Vessels: Right upper extremity AV fistula is working well with blood flow rate of 350 cc/minute. He is using 16 gauge needle in both arterial and venous. Right IJ tunnel hemodialysis catheter exit siteis covered with gauze. Gauze is clean and dry. DIAGNOSTICS Lab results last 24 hours: Recent Results (from the past 24 hour(s)) Glucose, POCT Collection Time: 10/14/21 1:20 PM Result Value Glucose, POCT, B 137 Glucose, POCT Collection Time: 10/14/21 5:02 PM Result Value Glucose, POCT, B 319 (H) Glucose, POCT Collection Time: 10/14/21 11:19 PM Result Value Glucose, POCT, B 157 (H) Site Capillary Last Intake > 4 hours Magnesium Collection Time: 10/15/21 4:39 AM Result Value Magnesium, S 2.3 Glucose, POCT Collection Time: 10/15/21 7:39 AM Result Value Glucose, POCT, B 91 Site Capillary Last Intake > 4 hours Renal Function Panel Collection Time: 10/15/21 8:08 AM Result Value Potassium, S 3.8 Sodium, S 130 (L) Chloride, S 96 (L) Bicarbonate, S 20 (L) Anion Gap 14 BUN (Blood Urea Nitrogen), S 63 (H) Creatinine, S 4.41 (H) eGFR-Non Black/ <15 (L) eGFR-Black/ <15 (L) Calcium, Total, S 8.5 (L) Glucose, S 131 Albumin, S 3.7 Phosphorus (Inorganic), S 4.5 ASSESSMENT / PLAN #1 End-stage kidney disease secondary to??calcineurin inhibitor toxicity and bilateral renal artery stenosis, maintained on incenter hemodialysis since??06/15/2021 #2 Admitted on??10/12/2021??for evaluation of shortness of breath, cough, fever with symptoms worsening over the past 10 days #3??Status post liver transplant on 05/25/1999 for autoimmune hepatitis with retransplantation on 06/13/2013 for late onset hepatic??artery thrombosis and ischemic cholangiopathy--on chronic immunosuppression with CellCept, tacrolimus, and prednisone #4??History of chronic cough with recurrent aspiration #5??Chronic anemia related to end stage renal disease #6??Secondary hyperparathyroidism related to end stage renal disease #7??Hypertension #8 Chronic hyponatremia ?is dialyzing today with net fluid removal of 1 L over 3.5 hours through his right AV fistula today. His pre dialysis weight was 70.3 kg. His outpatient target dry weight is set at 70.0 kg. He is dialyzing with 3 potassium and 3 calcium dialysate. His blood pressure during my visit was 129/73 with pulse 91 bpm. His hemoglobin has trended down rapidly to 7.9 g/dL. Iron is replete with ferritin at 871 and % saturation at 28 based on iron study on September 22 in the outpatient setting. Folate and vitamin B12 levels are within normal range on October 13, 2021. Hemoquant was 0.6 mg Hb/g October 12, 2021. ?? New Recommendations: -- Hemodialysis today and again on Friday -- EMLA cream to AV fistula 30 minutes prior to dialysis on dialysis days, nephrology will order -- Ok to remove renal dialysis restrictions and fluid restriction based on current laboratory values. Recommend continuing sodium restriction of 2 g daily. -- CBC, BMP, magnesium and phosphorus with a.m. labs -- IV Epogen 9000 units to be given during dialysis today. -- Please remove his right IJ tunnel hemodialysis catheter by Interventional Radiology because his right AV fistula has been working well. Nursing in [facility] is comfortable withthe dialysis catheter removal. He has agreed to the plan. ?? Continued Recommendations:?? -- Dialyzes on??Friday, Friday, Friday schedule -- Dose medications for patients that require hemodialysis -- Dialyvite one tablet each evening -- Daily weights, standing if possible -- Strict I&O monitoring --??Will clarify outpatient dialysis medications with outpatient dialysis records when available.--Ianticipate that he is receiving JORGE L therapy in the outpatient setting.?? -- Continues on??nifedipine XL 30 mg p.o. daily (I note that he takes 90 mg daily in the outpatient setting) and torsemide 30 mg PO daily -- Recommend administering antihypertensive medications after dialysis on dialysis days to minimize intradialytic hypotension -- Continues on cefepime 500 mg b.i.d., appreciate renal dosing. Please ensure that this administered after dialysis on dialysis days ?? Disposition: -- Please keep Nephrology informed regarding?disposition as it becomes known so that wecan ensure that their outpatient hemodialysis needs have been arranged appropriately. ?Plan was reviewed with his inpatient nephrology [employer] commerce consultant Dr. Coker. Thank you for the opportunity to participate in??'s care. For questions or concerns, please page the??Neph A ESRD pager at [phone] Carla Burrows APRN, C.N.P., M.S.N. - 10/14/2021 1:44 PM CDT NEPHROLOGY CONSULT SERVICE - PROGRESS NOTE Hospital Day 2 SUBJECTIVE I saw Mr. Singh in his hospital room today. He tells me that he is feeling much improved today. His energy is better overall and he is breathing easier with less coughing. He denies any chest pain, cramping, or lightheadedness at this time. He is wondering if his renal dialysis diet and fluid restrictions can be removed. He reminds me that he continues to make good amounts of urine as well. I have reviewed the current medication list. OBJECTIVE Admission weight: 71.1 kg Weights for the past 120 hrs (Last 3 readings): Weight 10/14/21 1324 70.9 kg 10/12/21 1334 71.1 kg I/O 10/13 0000 10/13 2359 10/14 0000 10/14 2359 P.O. 1200 440 Intermittent Medications 55 Total Intake(mL/kg) 1255 (17.7) 440 (6.2) Urine (mL/kg/hr) 825 (0.5) 825 (0.8) Total Output 825 825 Net +430 -385 VITAL SIGNS Vitals 06/06/21 Pre-Dialysis BP (Calculated) 124/68 Post-Dialysis BP (Calculated) 132/84 Lowest BP of Encounter/Session (Calculated) 106/66 Pre-Treatment Weight (kg) 75.1 kg Post-Treatment Weight (kg) 72.6 kg Treatment Weight Change (kg) (kg) -2.5 Requested UF Volume (mL) (mL) 3000 Total UF Removed (mL) (mL) 3010 Treatment Tolerance No Complications Post-Hemodialysis Comments stable treatment PHYSICAL EXAM General: is alert and oriented. Resting in the bed. Does not appear in acute distress.. Cardiovascular: Regular rate rhythm. Respiratory: clear to auscultation throughout bilateral lung licea. Respirations are regular and nonlabored. Breathing on room air. Less coughing noted today. Extremities: No edema present in bilateral lower extremities. Vessels: Right IJ tunnel dialysis catheter has gauze covering the exit site. Dressing is clean dry and intact. Right upper extremity AV fistula has a bruit and thrill present. Hemodialysis Catheter Permanent (tunneled, implanted) Right Chest (Active) Placement Date/Time: 05/31/21 1517 Line Type (REQUIRED): Permanent (tunneled, implanted) Procedural Pause Completed: Yes Optimal Site Selected: Yes Catheter Time Out Checklist Completed: Yes Hand Hygiene Performed Prior to Insertion: Yes Site P... Number of days: 136 Hemodialysis AV Access Right AV Fistula (Active) Placement Date/Time: 07/24/21 1038 Orientation: Right Location: Forearm AV Access Type: AV Fistula Placed by: Dr Shafer Number of days: 82 DIAGNOSTICS Results from last 7 days Lab Units 10/14/21 04410/13/21 0519 HEMOGLOBIN g/dL 7.9* 8.0* WBC x10(9)/L 4.4 4.4 PLATELETS AUTO x10(9)/L 178 166 Last 2 results Lab Units 10/14/21 04410/13/21 0519 10/12/21 1612 10/12/21 1451 SODIUM P mmol/L -- -- -- 124* POC SODIUM -- -- < > -- SODIUM mmol/L 127* 128* -- -- POTASSIUM P mmol/L -- -- -- 4.7 POTASSIUM mmol/L 4.0 3.8 -- -- POC HCO3 VENOUS -- -- < > -- BICARBONATE PLASMA mmol/L -- -- -- 19* BICARBONATE S mmol/L -- -- BUN P mg/dL -- -- -- 35* BUN mg/dL 58* 45* -- -- CREATININE mg/dL 4.13* 3.39* -- -- CREATININE P mg/dL -- -- -- 2.48* CALCIUM P mg/dL -- -- -- 8.1* CALCIUM mg/dL 8.3* 8.0* -- -- PHOSPHORUS INORGANIC mg/dL 4.6* -- -- -- < > = values in this interval not displayed. 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 dialyzed last on Friday in the outpatient setting. He has no acute indication for dialysis today. We will plan for his next dialysis to be tomorrow. New Recommendations: -- Hemodialysis next tomorrow -- EMLA cream to AV fistula 30 minutes prior to dialysis on dialysis days, nephrology will order -- Ok to remove renal dialysis restrictions and fluid restriction based on current laboratory values. Recommend continuing sodium restriction of 2 g daily. -- CBC, BMP, magnesium and phosphorus with a.m. labs Continued Recommendations: -- Dialyzes on Friday, Friday, Friday schedule -- Dose medications for patients that require hemodialysis -- Dialyvite one tablet each evening -- Daily weights, standing if possible -- Strict I&O monitoring -- Will clarify outpatient dialysis medications with outpatient dialysis records when available.--I anticipate that he is receiving JORGE L therapy in the outpatient setting. -- Continues on nifedipine XL 30 mg p.o. daily (I note that he takes 90 mg daily in the outpatient setting) and torsemide 30 mg PO daily -- Recommend administering antihypertensive medications after dialysis on dialysis days to minimize intradialytic hypotension -- Continues on cefepime 500 mg b.i.d., appreciate renal dosing. Please ensure that this administered after dialysis on dialysis days ?? Disposition: -- Please keep Nephrology informed regarding disposition as it becomes known so that we can ensure that their outpatient hemodialysis needs have been arranged appropriately. ? Thank you for the opportunity to participate in 's care. For questions or concerns, please page the Neph A ESRD pager at [phone]. ?? Associated attestation - Florence Wren M.D., Ph.D. - 10/14/2021 3:11 PM CDT I was the supervising physician in the delivery of the service. Julian Sanchez M.D. - 10/14/2021 11:13 AM CDT T Medicine 5 ([facility]) Progress Note SUBJECTIVE Interval History Per overnight team: No events over night. Per nursing: No events over night. Patient seen and examined. Feeling better -- wants to go home. Most concerned RE diet. OBJECTIVE Vitals:Vitals reviewed; see EHR. Those affecting care noted in A/P. PHYSICAL EXAM: GEN: NAD, resting comfortably in bed. HEENT: NCAT CV: Well perfused PULM: Reassuring rate ABD: Nondistended Results Labs/Imaging: Labs, imaging reviewed; see EHR. Those affecting care noted in A/P. ASSESSMENT / PLAN #1 Sepsis 2/2 CAP c/f OI in IC pt, POA #1 Sputum cx growing GNB # lymphocytosis #1 CMV viremia # Chronic rhinosinusitis c/b chronic aspiration s/p 08/28/21 sinus surgery # Chronic cough #1 Recurrent C dif (last 05/24/21) DC doxy given GNB in sputum. input. Obtain swallow study given chronic aspiration. DIAGNOSTIC PLAN: -WATERPROOFING MIXER -f/u bacterial, fungal urine, blood, sputum samples -CMV level on 10/17 MANAGEMENT PLAN: -f/u ID -DC home amoxicillin -Hold home azelastine nasal -Hold home benzonatate p.r.n. -Continue home budesonide neb 0.5 mg b.i.d. -cefepime 500 mg daily before dinner -DC fluticasone furoate-vilanterol 100-25 daily as do not see correlate on home med rec -continue home ipratropium nasal as fluticasone nasal spray daily -ipratropium albuterol QID RT -Bacid 1 tablet b.i.d. while on antibiotics and 5 days after for CDI prophylaxis -Continue home loratadine 10 mg daily at bedtime -continue home montelukast 10 mg daily bedtime -valganciclovir 450 mg q.48h after dialysis -vancomycin 125 mg p.o. b.i.d. CDI Prophylaxis #1 ESRD s/p now failed 05/25/99, 06/13/13 renal tx 2/2 calcineurin inhibitor tox & b/l CAL on HD since 06/15/21 c/b hyponatremia #AOCD, ERSD # HTN Liberalized diet per pt request and neph MANAGEMENT PLAN: -f/u neph -HD on MWF -Hold home darbeopetin -continue home dialysis multivitamin -Continue home nifedipine 90 mg daily as 30 mg daily -Continue home torsemide 30 mg daily ### For remainder of problem list: no change in assessment; continue prior plan. ### #1 glucocorticoid induced hyperglycemia (A1c = 7.4%) #1 exogenous glucocorticoid induced adrenal insufficiency MANAGEMENT PLAN: -insulin per DCS -hold home prednisone -pred taper 20x14 days->10x14 days->7.5x14 days->5 mg chronically (starting on 11/24/21) -TMP-SMX SS 1 tab daily PCP PPX #1 Liver failure 2/2 AI s/p 1998 and 05/2013 re-transplant for late onset hepatic artery thrombosisw/ ischemic cholangiopathy on tacrolimus (goal 1.5- 2.5), mycophenolate, pred DIAGNOSTIC PLAN: -tacrolimus level 10/15 0800 MANAGEMENT PLAN: -tacrolimus 0.5 mg b.i.d. -mycophenolate 250 mg b.i.d. -prednisone taper as above -f/u liver tx #ASCVD PPX -Continue home ASA 81 mg daily -Continue home atorvastatin 10 mg daily #1 BPD -Continue home lamotrigine 200 mg b.i.d. # hypothyroidism -Continue home levothyroxine 25 mcg daily # Home Medications Hold non-essential home medications during acute hospitalization MANAGEMENT PLAN: -Hold home APAP -Hold home albuterol PRN -hold home coenzyme Q 10 -Hold home ondansetron N: DM diet, 2 Na restriction Diet VTE PPX: SQH Current Activity/Mobility: BMAT Level 4 (Able to stand and walk; needs staff assist if fall risk factors identified) CODE STATUS: Full Code DISPO: Home Stable to discharge criteria (not yet met): Tests/procedures/consults Counseling was provided [id number] at bedside regarding the plan of care as stated above. I personally spent over half of a total 30 minutes in counseling and coordination of care as documented above. Julian Sanchez M.D.; Pager: [phone] Harleen Santamaria M.D. - 10/14/2021 11:03 AM CDT The patient was not personally interviewed or examined. The history and examination findings are based on the clinical documentation provided and/or discussed with a physician or provider who had personally interviewed and examined the patient. Infectious Diseases-eConsult Progress Note SUBJECTIVE REASON FOR CONSULT Patient is a 66 y.o. male admitted 10/12/2021 being followed by infectious diseases eConsult service for fever in setting of IS status. Events over the past 24 hours: no further fever. GNB on sputum culture CURRENT MEDICATIONS Present anti-infective therapies include: ceFEPIme, 500 mg, Daily before dinner doxycycline, 100 mg, BID sulfamethoxazole-trimethoprim, 1 tablet, Daily valGANciclovir, 450 mg, Q48H vancomycin, 125 mg, BID OBJECTIVE VITAL SIGNS Reviewed DIAGNOSTICS I have reviewed diagnostics. Studies of note include: Estimated Creatinine Clearance: 17.5 mL/min (A) (by C-G formula based on SCr of 4.13 mg/dL (H)). Sputum cx: GNB ASSESSMENT / PLAN 66-year-old male with history of repeat liver transplant on chronic immunosuppression, end-stage kidney disease on hemodialysis who presents from dialysis center with fever and shortness of breath. ?? 1. Bibasilar micronodular opacities with bronchial wall thickening, mildly progressed since May2021, concern for bronchiolitis/aspiration in past, sputum cx with GNB 2. Fever at dialysis, query bloodstream infection, rule out pulmonary infection- blood cx thus far negative 3. CMV viremia, possibly related to fever 4. 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 valganciclovir July 2021 5. Repeat liver transplant 06/13/2013 due to late onset hepatic artery thrombosis/ischemic cholangiopathy, initial transplant 05/25/1999 due to autoimmune hepatitis 6. Chronic rhinosinusitis with recurrent aspiration status post sinus surgery 08/28/2021, serratia on cultures 7. Recurrent C diff infection, last episode 05/24/2021 8. End-stage kidney disease on IHD via brachiocephalic fistula 9. Recent high dose steroids use over 6-8 weeks, no tapering ?? The patient presents with fever which occurred during dialysis and acute worsening of cough with subacute fatigue and dyspnea with exertion. CT findings are notable for predominantly bibasilar micro nodularities, which have progressed since prior CT from May 2021 in the setting of approximately 40 mg of prednisone daily for the last 6 weeks. Constellation of symptoms is most concerning for atypical infection including endemic mycoses (Histoplasma, Blastomyces), pneumocystis, and non tuberculousmycobacterial infection. Other considerations include chronic aspiration and history of bronchiolitis with that in past. Patient will require noninvasive workup and rule out of bacteremia (given onset of fever and chills during dialysis via right brachiocephalic fistula). Should noninvasive workup returned negative, or symptoms not improve, BAL ICH protocol will need to be considered. Of note, the patient has recently developed CMV viremia in the setting of chronic lymphopenia, high-dose steroids, and a recent bout of biopsy-proven CMV colitis. He is without symptoms to suggest invasive CMV disease at this time. We will start p.o. valganciclovir at this time with follow-up CMV quant in 1 week. We have also recommended start of pcp prophylaxis regimen. ?? RECOMMENDATIONS: 1. Continue valcyte, weekly cmv monitoring planned carefully given some difficulty with dosing for ihd patients 2. Continue cefepime Await ID and susc of GNB an tailor abx coverage 3. Stop doxycycline 4. If pts resp status improves with targeting GNB in sputum, consider repeat CT in a few weeks to ensure infiltrate is improving. If not, reivew need for ICH/BAL to look for ntm etc. 5. Follow up PCP PCR. Continue bactrim prophy, given steroid use, and cmv inf, some lymphopenia 6. Continue oral vanco for c.diff prophy given recurrent c.diff hsitory 7. Given susp of aspiration, eval with bedside swallow/video if needed could be done 8. Await fungal work up Harleen Santamaria M.D. Chelsy Rojas M.D., M.P.H. - 10/14/2021 7:54 AM CDT Diabetes Consulting Service Progress Note SUBJECTIVE LOS: 2 days DCS continues to follow this 66 y.o. year-old male for steroid-induced hyperglycemia admitted on 10/12/2021 PREADMISSION THERAPY: none OBJECTIVE Patient is resting in bed comfortably this morning. He states that he otherwise feels overall improved. Blood glucose results in last 24 hours: Recent Labs 10/14/21 0447 GLUCOSE 228 H Yesterday, given: NPH 14 u Steroids: Prednisone 20 mg Current Diet Adult Diet Regular; 4,000 mg Na; 60 gm Carbs (per meal); 1500 mL Fluid; Renal (Dialysis) starting at 10/13 1033 VITALS Temperature: 36.4 ??C Resp Rate: 17 Blood Pressure: 136/68 BP Location: Left arm;Upper SpO2: 100 % Height: 177.8 cm Weight: 71.1 kg Body mass index is 22.48 kg/m??. LABORATORY Lab Results Component Value Date CREATININE 4.13 (H) 10/14/2021 Estimated Creatinine Clearance: 17.5 mL/min (A) (by C-G formula based on SCr of 4.13 mg/dL (H)). ASSESSMENT / PLAN # Steroid-induced hyperglycemia Started on 14u NPH qAM yesterday with persistent postprandial hyperglycemia in the 300s, requiring atotal of 24u of correction scale insulin. We will increase his NPH dose 25u NPH qAM. He will likely require further increases in his NPH in these next few days. Continue moderate SSI. PLAN - Blood glucose monitoring: four times daily - Glucose goal: 140-180 mg/dL - Basal: NPH 25 units. - Mealtime: No mealtime insulin. - in favor of outpatient convenience of insulin administration while he continues to be on supraphysiologic doses of prednisone - Correction scale: NovoLog moderate correction scale three times a day - DCS will evaluate and adjust insulin doses as indicated to achieve glycemic goal. ANTICIPATED DISMISSAL PLAN: Likely NPH qAM, final dismissal dose to be determined - duration for as long as prednisone dose is >5mg Blood glucose frequency: four times daily Goal: 140-180 mg/dL Please page DCS within 24 hours prior to hospital dismissal for final dismissal recommendations. Bruce Singh's case and plan of care was discussed with Dr.Jad San. Please see supervisory note for further details. For questions, please utilize the DCS Resident service pager [phone]. Chelsy Rojas, PGY-1 Internal Medicine [phone] Associated attestation - Kemal San M.D., M.S. - 10/14/2021 8:32 PM CDT I saw and evaluated the patient, participating in the garcia portions of the service. I reviewed the resident/fellow???s note. I agree with the resident/fellow???s findings and plan. In brief, Mr. Singh continues to have postprandial hyperglycemia. We will adjust insulin doses accordingly. He will require insulin therapy on discharge, while he remains on high-dose steroids. Julian Sanchez M.D. - 10/13/2021 5:00 PM CDT T Medicine 5 ([facility]) Progress Note SUBJECTIVE Interval History Per overnight team: No events over night. Per nursing: No events over night. Patient seen and examined. Feeling OK OBJECTIVE Vitals:Vitals reviewed; see EHR. Those affecting care noted in A/P. PHYSICAL EXAM: GEN: NAD, resting comfortably in bed. HEENT: NCAT CV: Well perfused PULM: Reassuring rate ABD: Nondistended Results Labs/Imaging: Labs, imaging reviewed; see EHR. Those affecting care noted in A/P. ASSESSMENT / PLAN #Sepsis 2/2 CAP c/f OI in IC pt, POA #AOCD, ERSD # lymphocytosis # glucocorticoid induced hyperglycemia (A1c = 7.4%) # exogenous glucocorticoid induced adrenal insufficiency # ESRD s/p now failed 05/25/99, 06/13/13 renal tx 2/2 calcineurin inhibitor tox & b/l CAL on HD since 06/15/21 c/b hyponatremia # Liver failure 2/2 AIH s/p 1998 and 05/2013 re-transplant for late onset hepatic artery thrombosis w/ ischemic cholangiopathy on tacrolimus (goal 1.5- 2.5), mycophenolate, pred # CMV viremia # Chronic rhinosinusitis c/b chronic aspiration s/p 08/28/21 sinus surgery Appreciate the thoughtful and helpful multidisciplinary input from our consulting teams. Added additional w/u rec'd by ID; Added on ganciclovir, trim sulfa, vancomycin as recommended by ID. Put in prednisone taper as recommended by endocrinology. Will not pursue stim given will be on steroids for lifeper endo. Recheck tacrolimus Friday morning. Checking CMV on 10/17. CBC, renal panel morning. Fullernote follow tomorrow. N: Renal Diet VTE PPX: SQH Current Activity/Mobility: BMAT Level 4 (Able to stand and walk; needs staff assist if fall risk factors identified) CODE STATUS: Full Code DISPO: Home Stable to discharge criteria (not yet met): Tests/procedures/consults Counseling was provided [id number] at bedside regarding the plan of care as stated above. I personally spent over half of a total 30 minutes in counseling and coordination of care as documented above. Julian Sanchez M.D.; Pager: [phone] Nadeem Smith, Pharm.D., R.Ph. - 10/13/2021 3:09 PM CDT Pharmacist Progress Note Reason for admission: SOB, fever, cough w/ concern for PNA PMH: ESRD on HD (M/W/F) awaiting Txp s/p stent, AutoImm hepatitis s/p liver Txp x 2 (1998, 2012), bipolar, chronic sinusitis s/p ethmoidectomy/maxillary antrostomy/frontal sinusotomy, HTN/HLD, hypoThyroid, C.diff (recurrent), Hx COVID, anemia, CMV colitis, Hx MDR Serratia Marcescens OBJECTIVE Home medications: ?? Held: azelastine nasal irrigation, benzonetate, Trazodone, valganciclovir ?? Changed: tacrolimus, mycophenolate Patient own medications: None Prophylaxis: heparin SQ ASSESSMENT / PLAN 1. CAP vs aspiration PNA - cefepime/doxy per ID. Pending: Respiratory panel (negative), sputum Cx, PCP PCR, MRSA PCR, blood cultures, histo/blasto 2. Hyperglycemia - DCS consult, suspected d/t steroid use and started on NPH 3. Transplant - Tacrolimus adjusted to 0.5 mg 2 times daily per transplant service. 4. Secondary Adrenal Insufficiency - Restarting prednisone taper: 20 mg/10 mg/7.5 mg/5 mg x 2 weeks each before resuming 5 mg daily. 5. CMV - Viral load detected, recommend resuming home valgancyclovir Changes to medications anticipated at discharge: TBD Nadeem Smith Pharm.D., R.Ph. Nadeem Smith Pharm.D., R.Ph. - 10/13/2021 3:07 PM CDT Images from the original note were not included. Admission Medication History Note Adherence issues: No concerns Medication list source: Patient and Pharmacy or dispense records Medication related information: None Prior to Admission Medications Med List Status: Pharmacy Complete Set By: Nadeem Smith Pharm.D., R.Ph. at 10/13/2021 3:06 PM Taking? Last Dose Informant Start Date End Date LT acetaminophen (TYLENOL) 500 mg tablet 10/12/2021 Self 06/18/13 -- Take 1 tablet by mouth every 6 (six) hours as needed for fever. Pain. No more than 2000 mg per day. albuterol 90 mcg/actuation inhaler 10/12/2021 06/21/21 -- Inhale 2 puffs every 6 (six) hours as needed for wheezing. Notes: May substitute generic Proair, generic Ventolin or generic Proventil as appropriate for patient or insurance preference amoxicillin (AMOXIL) 500 mg capsule Past Week Self 02/24/18 -- Take 4 capsules by mouth as directed. Prior to dental procedures aspirin 81 mg chewable tablet 10/12/2021 Self 09/03/17 -- Chew 81 mg daily. atorvastatin (LIPITOR) 10 mg tablet 10/11/2021 Self 03/05/21 -- TAKE 1 TABLET(10 MG) BY MOUTH DAILY azelastine HCl (AZELASTINE NASAL) 10/12/2021 -- -- Administer 1 mg into nostril(s) 2 (two) times a day. Alternating sides, use with sinus rinse 2 times daily. benzonatate (TESSALON PERLES) 100 mg capsule 10/11/2021 Self 01/04/21 -- Take 100 mg by mouth. budesonide (PULMICORT) 0.5 mg/2 mL nebulizer solution 10/12/2021 07/30/21 -- ADD 1 RESPULE TO 8 OZ SALINE AND IRRIGATE EACH SIDE OF NOSE TWICE DAILY DIRECTED coenzyme Q10 (CO Q-10) 200 mg capsule 10/11/2021 Self 07/07/17 -- Take 1 capsule by mouth daily. darbepoetin michelle-polysorbate (Aranesp, in polysorbate,) 60 mcg/0.3 mL injection () Self 01/09/21 06/22/21 Inject 0.3 mL (60 mcg total) under the skin once for 1 dose. Hold if Hgb greater than 11 g/dL. Giveonce every 28 days. ipratropium (ATROVENT) 21 mcg (0.03 %) nasal spray 10/12/2021 Self 01/30/21 -- Administer 2 sprays into each nostril 2 (two) times a day. upto 5 times daily as needed. lamoTRIgine (LaMICtal) 200 mg tablet 10/12/2021 Self 10/03/20 -- TAKE 1 TABLET BY MOUTH TWICE DAILY levothyroxine (SYNTHROID, LEVOTHROID) 25 mcg tablet 10/12/2021 Self 12/12/20 -- Take 1 tablet (25 mcg total) by mouth every morning before breakfast. lidocaine-prilocaine (EMLA) 2.5-2.5 % cream Past Week 09/19/21 -- Apply 1 application topically See Admin Instructions. 2 hours prior to dialysis. loratadine (CLARITIN) 10 mg tablet 10/11/2021 Self -- -- Take 10 mg by mouth at bedtime. montelukast (SINGULAIR) 10 mg tablet 10/11/2021 Self -- -- Take 10 mg by mouth at bedtime. multivitamin renal failure (DIALYVITE) 100-1 mg tablet 10/12/2021 05/26/21 05/26/22 Take 1 tablet by mouth daily with dinner. mycophenolate (CELLCEPT) 250 mg capsule 10/12/2021 10/11/21 -- Take 1 capsule (250 mg total) by mouth 2 (two) times a day. Do not break, cut, or open capsules. Patient taking differently: Take 500 mg by mouth 2 (two) times a day. Do not break, cut, or open capsules. NIFEdipine XL (PROCARDIA XL) 30 mg 24 hr tablet 10/12/2021 07/05/21 -- TAKE 3 TABLETS(90 MG) BY MOUTH DAILY ondansetron (ZOFRAN) 4 mg tablet Past Week Self 11/29/20 -- Take 1 tablet (4 mg total) by mouth every 8 (eight) hours as needed for nausea or vomiting. predniSONE (DELTASONE) 10 mg tablet 10/12/2021 08/27/21 08/27/22 Take 1 tablet (10 mg total) by mouth as directed. 40 mg for 2 weeks 20 mg for 2 weeks 10 mg for 2 weeks then back to 5 mg Patient taking differently: Take 10 mg by mouth as directed. 40 mg for 2 weeks 20 mg for 2 weeks 10mg for 2 weeks then back to 5 mg (*Repeat taper - has been tapering since 08/28/21 per patient predniSONE (DELTASONE) 5 mg tablet 06/29/21 -- TAKE 1 TABLET(5 MG) BY MOUTH DAILY Patient taking differently: ON HOLD WHILE ON TAPER tacrolimus (PROGRAF) 0.5 mg capsule 10/12/2021 07/18/21 -- TAKE 2 CAPSULES BY MOUTH TWICE DAILY torsemide (DEMADEX) 10 mg tablet 10/12/2021 09/05/21 09/05/22 Take 6 tablets (60 mg total) by mouth daily. Patient taking differently: Take 30 mg by mouth 2 (two) times a day. traZODone (DESYREL) 100 mg tablet Past Week 08/27/21 08/27/22 Take 1 tablet (100 mg total) by mouth at bedtime as needed for sleep. Notes: Patient reports used for sleep, but does not take regularly due to increased thirst when taken. valGANciclovir (VALCYTE) 450 mg tablet 10/12/2021 10/12/21 01/10/22 Take 1 tablet (450 mg total) by mouth every other day. take every 48 hours after dialysis Notes: Patient requests 90 days supply Carlton QuigleyD, [facility] Pager [phone] Khushi Awan, R.R.T., L.R.T. - 10/13/2021 2:02 PM CDT Induced sputum ordered but patient was able to bring up a sample on his own, sample sent to lab. Electronically signed by: Khushi Awan R.R.T., Ko 10/13/21 2:02 PM CDT Julian Sanchez M.D. - 10/13/2021 9:48 AM CDT Richard note to follow: Per transplant, adjust tacrolimus 0.5 mg b.i.d.. Follow-up tacrolimus levels from this morning. Pt reports mycophenolate 250 mg b.i.d.; have adjusted. Will likely pursue a.m. cortisol plus-minus ACTH stim given large fluctuation and prednisone as outpatient. Checking histo blasto thought denies contact w/ river/lakes (No household concerning features either -- no pets, mold; 20 years old - forced airw/ clean filters). Check induced sputum for purulent fungal cultures. Follow up Infectious Disease, Transplant, Nephrology, DCS. Stephanie Williamson M.D. 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 He also has a history of renal failure and was initiated on iHD around June 01, 2021. Brachiocephalic AV fistula created on 07/2021. 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 He was treated with IV ganciclovir with repeat colonoscopy on 07/10 showing patchy areas of mild inflammation but with negative CMV immunostain. IV ganciclovir was continued through 08/14/2021 then transitioned to valganiclovir 450mg twice weekly, eventually discontinued around 09/12 after CMV DNA was undetected on 2separate occasions. ?? Mr. Singh also has a long-standing history of chronic cough and post nasal drip and recurrent aspirations. Multiple sputum and sinus cultures grew Serratia marcescens (mostly cefepime susceptible except for 1 isolate in May 2021). Back then (June 12), the CT chest showed few areas of waxingand waning of the bilateral pulmonary clustered nodularity associated with endobronchial plugging, bronchial wall thickening, and bronchiectasis with overall progression. He was treated with TMP/SMX for 2 weeks. He is presenting from the HD center with shortness of breath and fevers. CXR showing reticulonodularopacities in the mid and lower lungs. Repeat CMV DNA on 10/04 was 158 then 2170 on 10/10/2021. He was given a script of PO valganciclovir today in the outpatient setting. I was called to provide some recommendations on further management and workup. Immunosuppression: ?? Mycophenolate ?? Tacrolimus ?? Prednisone taper since May 2021. On 08/27 he was prescribed prednisone 40 mg for 2 weeks 20 mg for 2 weeks 10 mg for 2 weeks then back to 5 mg Antibiotics: ?? Not on prophylaxis Lines: ?? Port/ tunneled line L chest ?? HD catheter R chest ?? AV fistula R Estimated Creatinine Clearance: 29.1 mL/min (A) (by C-G formula based on SCr of 2.48 mg/dL (H)). Impression The patient is presenting with fevers and predominantly respiratory symptoms. CXR is showing some lower and middle lobe infiltrates. The fevers could also be secondary to CMV reactivation. He does not have diarrhea as per discussion with the primary team ?? For now, recommend to discontinue ceftriaxone and to start cefepime 500mg IV Q24H. This should cover the Serratia (predominantly cefepime S isolates), Strep and S lugdunensis Isolated from sinuses. We can hold off on vancomycin since he is HD stable and saturating well on room air ?? Recommend to obtain an MRSA nasal swab ?? Recommend to obtain a CT of the chest to further evaluate the pulmonary infiltrates. He is saturating 100% on room air, low suspicion for PE. Can hold of on CTA ?? Recommend to obtain a respiratory pathogen panel TRAFFIC SAFETY 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 PCR ?? Recommend to obtain sputum for bacterial and fungal stains and cultures ?? The patient has CMV reactivation with VL trending up. This may be related to the recent initiation of steroids in addition to being on tacrolimus and mycophenolate, and will require re-initiation ofganciclovir/valganciclovir. ID team in AM will re-evaluate and start therapy accordingly. ?? Agree with obtaining sputum PCP PCR, although, low suspicion for PCP pneumonia at this point ?? Peripheral blood cultures obtained. Low suspicion for CRBSI, however, that should be kept in mindin case peripheral blood cultures return positive. ?? In case of hypotension, recommend to give a loading dose of vancomycin 1.25g IV once I would hold off on obtaining further workup tonight until we have the results of the CT chest back.Depending on the findings, we may consider a non-invasive fungal workup, mycobacterial / NTM workup or a possible BAL-ICH protocol documented in this encounter H&P Notes Nelli Gloria APRN, C.N.P. - 10/12/2021 5:06 PM CDT T Medicine 5 ([facility]) Admission Note SUBJECTIVE CHIEF COMPLAINT Cough and shortness of breath HISTORY OF PRESENT ILLNESS History obtained from review of EMR, handoff from ED and discussion with patient on admission. Mr. Bruce Singh is a 66 y.o. male from [place], [place] with PMH/medical co- morbidities significant for ESRD on hemodialysis via tunneled dialysis catheter, currently awaiting renal transplant; left renal artery stenosis status post stent placement; hyponatremia; autoimmune hepatitis status post liver transplantation in 1998, re-transplantation in May 2013 for late HAT and ischemic cholangiopathy, on chronic immunosuppression with CellCept, tacrolimus and prednisone; bipolar disorder; chronic sinusitis with postnasal drip, status post ethmoidectomy endoscopy, maxillary antrostomy and frontal sinusotomy endoscopy for his chronic sinusitis on July 26, 2021; hypertension; hyperlipidemia, hypothyroidism on levothyroxine; recurrent c diff infection; aspiration pneumonia; bronchiectasis; COVID-19 infection 10/2020; anemia of renal disease; CMV colitis; 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 Mr. Singh lives alone in his own home in [place], [place]. He ambulates independently; he occasionally uses a walker at home. He reports he fell off a ladder earlier last year but otherwise denies any falls in the last year. He performs his own ADLs. 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 He denies any alcohol, drug or tobacco usage. Mr. Singh is and has been followed by multiple teams here at [facility] including Liver Transplant, Kidney/Pancreas Transplant, Nephrology (dialysis), Transplant Infectious Diseases, ENT, GI, and Pulmonology. Mr. Singh endorses chronic SOB at baseline; however, he notes this has worsened over the past month and much more over the past few days. He has also noticed a worsening cough and had a reported fever at home of 101 degrees. He reports that he normally would be able to walk around the block before he would feel short of breath. Over the last 10 days, he notes that he has felt more short of breath and can only walk a short distance prior to needing to sit down. Reports with this he feels like his heart is racing and he notes his HR has been to the 120s with exertion and he occasionally feels dizzywith this. He reports he has been coughing up thick phlegm at home. He denies a history of TERRY or oxy gen usage. He reports he has not been diagnosed with COPD but reports he has been told he possibly may have COPD. He denies headache, vision changes, orthopnea, URI symptoms, coughing with eating, trouble swallowing, GERD, nausea, vomiting, diarrhea, constipation, dark or tarry stools, bloody stools, numbness, tingling, focal weakness. This morning, he was receiving his intermittent hemodialysis (indicates that he receives Friday/Friday/Friday) and complained of having chills and fever, worseningdyspnea with exertion, frequent cough with mucus production and lightheadedness. He was advised to go to the emergency department at [facility] for further evaluation and management. In the [facility] ED, he was afebrile, heart rate was overall normal, respiratory rate was initially elevated at 32 but then normalized, blood pressure was normal and he was oxygenating well on room air. Laboratory workup included VBG, CBC, CMP, lactate, beta hydroxybutyrate, blood cultures, influenza and SARS-CoV-2; significant for hemoglobin 8.8, MCV 99.3, lymphocytes 0.38, sodium 124, potassium 4.7, BUN 35, creatinine 2.48, glucose 435, lactate 1.41, beta hydroxybutyrate 0.1. Blood cultures pending. Chest x-ray showed no significant change since July 31, 2021; reticular nodular opacities in the mid and lower lungs noted. He was given 1 g IV ceftriaxone and 100 mg IV doxycycline. He was additionallygiven 5 units of aspart given hyperglycemia. He was then admitted to the Medicine 5 service for ongoing care. Mr. Singh was seen upon his arrival to the general care floor. He endorsed history as above. He denies any new symptoms. He reports he is short of breath with walking from the bed to the bathroom. Heotherwise feels ok. He would like to order dinner. He is hopeful he may be able to discharge tomorrow. Plan of care reviewed in detail with Mr. Singh; he verbalized understanding and agreement. I have reviewed and updated the following: Past Medical History, Family History, Social History, andAllergies. Active Home Medications Medication Sig Taking traZODone (DESYREL) 100 mg tablet Take 1 tablet (100 mg total) by mouth at bedtime as needed for sleep. Patient not taking: Reported on 10/12/2021 acetaminophen (TYLENOL) 500 mg tablet Take 1 tablet by mouth every 6 (six) hours as needed. Pain. Nomore than 2000 mg per day. acetaminophen (TYLENOL) 500 mg tablet Take 1 tablet (500 mg total) by mouth every 6 (six) hours as needed for pain. Patient not taking: Reported on 10/12/2021 albuterol 90 mcg/actuation inhaler Inhale 2 puffs every 6 (six) hours as needed for wheezing. Patient not taking: Reported on 10/12/2021 amoxicillin (AMOXIL) 500 mg capsule Take 4 capsules by mouth as directed. Prior to dental procedures aspirin 81 mg chewable tablet Chew 81 mg daily. atorvastatin (LIPITOR) 10 mg tablet TAKE 1 TABLET(10 MG) BY MOUTH DAILY benzonatate (TESSALON PERLES) 100 mg capsule Take 100 mg by mouth. budesonide (PULMICORT) 0.5 mg/2 mL nebulizer solution ADD 1 RESPULE TO 8 OZ SALINE AND IRRIGATE EACHSIDE OF NOSE TWICE DAILY DIRECTED budesonide-formoteroL (SYMBICORT) 80-4.5 mcg/actuation inhaler Inhale 2 puffs 2 (two) times a day. Rinse mouth with water after use to reduce aftertaste and incidence of candidiasis. Do not swallow. calcium carb,gluc/mag ox,gluc (CALCIUM MAGNESIUM ORAL) Take by mouth. 3 capsules BID calcium carb/magnesium oxid/D3 (CALCIUM MAGNESIUM + D ORAL) Take 2 tablets by mouth 2 (two) times a day. Total of 700 mg of calcium, 350 mg of magnesium, and 400 IU of vitamin D cholecalciferol (Vitamin D3) 50 mcg (2,000 Unit) tablet Take 50 mcg by mouth daily. coenzyme Q10 (CO Q-10) 200 mg capsule Take 1 capsule by mouth daily. darbepoetin michelle-polysorbate (Aranesp, in polysorbate,) 60 mcg/0.3 mL injection Inject 0.3 mL (60 mcg total) under the skin once for 1 dose. Hold if Hgb greater than 11 g/dL. Give once every 28 days. fluticasone (VERAMYST) 27.5 mcg/actuation nasal spray Administer 2 sprays into each nostril daily. ipratropium (ATROVENT) 21 mcg (0.03 %) nasal spray Administer 2 sprays into each nostril 2 (two) times a day. upto 5 times daily as needed. Lactobacillus acidophilus capsule Take 1 capsule by mouth 2 (two) times a day with meals. While taking antibiotics to help promote gut health. Patient not taking: Reported on 10/12/2021 lamoTRIgine (LaMICtal) 200 mg tablet TAKE 1 TABLET BY MOUTH TWICE DAILY levothyroxine (SYNTHROID, LEVOTHROID) 25 mcg tablet Take 1 tablet (25 mcg total) by mouth every morning before breakfast. lidocaine-prilocaine (EMLA) 2.5-2.5 % cream Apply 1 application topically See Admin Instructions. 2 hours prior to dialysis. Patient not taking: Reported on 10/12/2021 loratadine (CLARITIN) 10 mg tablet Take 10 mg by mouth at bedtime. montelukast (SINGULAIR) 10 mg tablet Take 10 mg by mouth at bedtime. multivitamin renal failure (DIALYVITE) 100-1 mg tablet Take 1 tablet by mouth daily with dinner. multivitamin tablet Take 1 tablet by mouth daily. Maintenance mycophenolate (CELLCEPT) 250 mg capsule Take 1 capsule (250 mg total) by mouth 2 (two) times a day. Do not break, cut, or open capsules. Patient taking differently: Take 500 mg by mouth 2 (two) times a day. Do not break, cut, or open capsules. NIFEdipine XL (PROCARDIA XL) 30 mg 24 hr tablet TAKE 3 TABLETS(90 MG) BY MOUTH DAILY ondansetron (ZOFRAN) 4 mg tablet Take 1 tablet (4 mg total) by mouth every 8 (eight) hours as neededfor nausea or vomiting. oxyCODONE (ROXICODONE) 5 mg immediate release tablet Take 1 tablet (5 mg total) by mouth every 4 (four) hours as needed for severe pain or score 7-10 of 10 Indication: Acute Pain. Patient not taking: Reported on 10/12/2021 predniSONE (DELTASONE) 10 mg tablet Take 1 tablet (10 mg total) by mouth as directed. 40 mg for 2 weeks 20 mg for 2 weeks 10 mg for 2 weeks then back to 5 mg Patient taking differently: Take 10 mg by mouth as directed. 40 mg for 2 weeks 20 mg for 2 weeks 10 mg for 2 weeks then back to 5 mg (*Repeat taper - has been tapering since 08/28/21 per patient predniSONE (DELTASONE) 5 mg tablet TAKE 1 TABLET(5 MG) BY MOUTH DAILY Patient taking differently: ON HOLD WHILE ON TAPER tacrolimus (PROGRAF) 0.5 mg capsule TAKE 2 CAPSULES BY MOUTH TWICE DAILY torsemide (DEMADEX) 10 mg tablet Take 6 tablets (60 mg total) by mouth daily. Patient taking differently: Take 30 mg by mouth daily. UNABLE TO FIND by nasal (alternating) route 2 (two) times a day. Azelastine 1mg to Sinus Rinse twicedaily. Advanced RX valGANciclovir (VALCYTE) 450 mg tablet TAKE 1 TABLET BY MOUTH 2 X PER WEEK. PLEASE TAKE 450 MG TWICEWEEKLY ON MONDAYS AND THURSDAYS(AFTER DIALYSIS ON DIALYSIS DAYS). valGANciclovir (VALCYTE) 450 mg tablet Take 1 tablet (450 mg total) by mouth every other day. take every 48 hours after dialysis REVIEW OF SYSTEMS Pertinent items are noted in HPI; all other review of systems was negative. OBJECTIVE VITAL SIGNS Temperature: [36.6 ??C-37.8 ??C] 36.6 ??C Heart Rate: [69-84] 69 Resp Rate: [11-32] 20 Blood Pressure: (109-125)/(66-79) 123/67 SpO2: [95 %-100 %] 100 % Weight: [71.1 kg] 71.1 kg Pulse Rate: [64-91] 65 PHYSICAL EXAM General: Nontoxic-appearing male, sitting up at the edge of the bed; does not appear to be in acute distress. HEENT: Face symmetric. Oral mucosa pink, dry. Neck is supple. Trachea midline. Lymph: No palpable submandibular, cervical, or supraclavicular lymphadenopathy. Heart: S1, S2. Regular rhythm. Normal rate. Lungs: Diminished to bilateral bases. No appreciable wheeze, rhonchi, or crackles. On room air. Appears slightly dyspneic with ongoing conversation. Able to speak in full sentences. Dry cough noted at bedside. Abdomen: Soft, nontender, nondistended. Bowel sounds present. Skin: Warm, dry. No visible rashes or lesions. Extremities: No appreciable cyanosis or edema. Vessels: +2 radial pulses bilaterally. Musculoskeletal: Able to move all extremities around independently. Grants Assistant strength strong and equal bilaterally. Neurologic: Cranial nerves 2-12 grossly intact. Mental: Alert and oriented x4. Answers questions and converses appropriately. DIAGNOSTICS I have independently reviewed labs, imaging and EKG as noted per HPI. ASSESSMENT / PLAN Mr. Bruce Singh is a 66 y.o. male from [place], [place] with PMH/medical co- morbidities significant for ESRD on hemodialysis via tunneled dialysis catheter, currently awaiting renal transplant; left renal artery stenosis status post stent placement; hyponatremia; autoimmune hepatitis status post liver transplantation in 1998, re-transplantation in May 2013 for late HAT and ischemic cholangiopathy, on chronic immunosuppression with CellCept, tacrolimus and prednisone; bipolar disorder; chronic sinusitis with postnasal drip, status post ethmoidectomy endoscopy, maxillary antrostomy and frontal sinusotomy endoscopy for his chronic sinusitis on July 26, 2021 ; hypertension; hyperlipidemia, hypothyroidism on levothyroxine; recurrent c diff infection; aspiration pneumonia; bronchiectasis; COVID-19 infection 10/2020; anemia of renal disease; CMV colitis; 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 # SOB, fever, and cough # Concern for possible pneumonia # Prolonged courses of high dose steroids # Chronic Cough # Rhinosinusitis Chronic # Personal History Of Infectious And Parasitic Disease (COVID-19) (2020) # Immunocompromised host # MDR Serratia Marcescens isolated in sputum May 23, 2021 # Chronic rhinosinusitis with chronic cough and post nasal drip with recurrent aspiration # Status post ethmoidectomy endoscopy, maxillary antrostomy and frontal sinusotomy endoscopy for hischronic sinusitis on July 26, 2021 # CMV colitis, biopsy confirmed with CMV viremia # Recurrent Clostridioides difficile infection, last episode, May 24, 2021 Admitted with a fever, SOB and cough that has worsened most significantly over the last 10 days. He has been following outpatient with Transplant ID and has had chronic issues with aspiration, bronchiectasis. He was started on tx in the ED for CAP (ceftriaxone, doxy). I spoke with Transplant ID this evening; they reviewed and will formally see patient tomorrow. ID wonders if his fever is in part due to his CMV (noting elevation in CMV DNA 10/10 at 2170). Note he has been on high dose steroids since the beginning of August. Patient does not believe he hasreceived pneumocystis prophylaxis (but this is unclear). On arrival to the floor, he is afebrile and hemodynamically stable. He is noted to become somewhat dyspneic in conversation but recovers easily. PLAN: --Transplant ID consultation. --Antibx: cefepime IV (renally dosed, discontinued ceftriaxone and switched to cefepime d/t history of MDR serratia) + continue doxycycline. Hold on vancomycin per discussion with ID. --CT chest w/o IV contrast. --MRSA/staph PCR, respiratory pathogen panel. --Pneumocystis PCR (sputum). --Sputum culture. --Monitor blood cultures. --DuoNebs Q6 hours and PRN. --Continue home inhalers, nasal sprays. --CBC in am. --Aspiration precautions. --Hold on Valcyte this evening; per discussion with ID, they will make recommendations tomorrow. --If SOB persists, consider CTA (discuss with Neph) to r/o PE (low suspicion currently) and/or TTE. --Consider repeat Pulmonology evaluation pending work-up. ADDENDUM 10/12/2021 2245: CT chest showing worsening micronodular opacities in the bilateral lower lobes and basilar right middle lobe and lingula with associated bronchial wall thickening suspicious for infectious/inflammatory pneumonia, possibly from aspiration; continue plan of care as above. # Hyperglycemia, suspect steroid induced Glucose on labs 10/10 111. Elevated on admission to the 400s. Suspicion is this is related to his steroid usage. PLAN: --DCS consultation. --Check hemoglobin A1C. --Moderate correction dose Aspart scale TID. --RMGs QID. Repeat RMG at 0200 tonight. --Diabetic diet. # 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) # Hyponatremia # Awaiting renal transplant # Renal artery stenosis s/p stenting Follows with Nephrology/transplant as an outpatient. He dialyzes Friday/Friday/Friday. Sodium corrected for hyperglycemia 129-132 (stable from prior). PLAN: --Nephrology consultation. --Dialysis per Nephrology. --Renal diet. --Dietitian consultation. --Strict intake and output. --Daily weights. --Hold torsemide. --CMP in am. # Cirrhosis Cryptogenic (HCC) # Transplant Liver (HCC) # Immunodeficiency Due To Drugs (HCC) Follows with Liver Transplant here at [facility]. Tacrolimus level last checked on 10/10 (low at 2.5). PLAN: --Hepatobiliary consultation (given transplant history). --Continue CellCept (please note patient was recently advised to use 500mg per his report), tacrolimus and prednisone (*note he is on a prednisone taper outpatient). # Bipolar I Disorder (HCC) PLAN: --Continue Lamictal per home regimen. # Anemia of renal disease # History of positive HemoQuant # Macrocytosis # Lymphopenia He has previously been evaluated by GI and had colonoscopy as an outpatient. Previously Hemoccult positive. He denies any signs of bleeding. PLAN: --Check HemoQuant. --Peripheral smear, Vitamin B12 and folate in am. --CBC in am. # Medication reconciliation Patient provided medication list; admission medication list updated to reflect this. However, recommend primary team or pharmacist review again tomorrow as in review of chart it appears that not all ofthe medications that have been recently prescribed including Valcyte are reflected on this list. Diet: Adult Diet Regular; Renal (Dialysis) Tubes/lines: HD catheter. PIV. VTE prophylaxis: Heparin subcu. Code status: Full Code per discussion with patient on admission. Should he be unable to make his owndecisions, he would designate his sister Parris as his alternate decision maker. Baseline Mobility: Independent; occasionally uses a walker. Disposition: Anticipate discharge to home once medically stable. Given current status, anticipate atleast 48 hours of hospitalization. The above plan of care was discussed with Dr. Gloria, HIM ibm websphere commerce consultant. Counseling was provided [id number] at bedside regarding the plan of care as stated above. I personally spent over half of a total 80 minutes in counseling and coordination of care as documented above. documented in this encounter Consult Notes Cheryl Jacobo M.A., [facility] - 10/14/2021 3:16 PM CDT Speech Language Pathology Dysphagia Evaluation- Acute Care Session Type: Evaluation Length of session: 10 minutes Time of Dysphagia Session: 1516 SUBJECTIVE Referred By: [facility] Medicine 5 ([facility]) History: Per EHR, patient is a 66 y.o. 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 Please refer to patient EHR for further history and details. Mr. Singh previously received Speech Pathology services addressing dysphagia. A VFSS completed on 12/19/20 was within normal limits. Speech Pathology consult was received for evaluation of dysphagia. Prior Level of Functioning: Mr. Singh has been on a regular diet with thin liquids and denies any difficulty with chewing/swallowing. General Family/Caregiver Present: No Arousal/Alertness: Appropriate responses to stimuli Current Vision: No visual deficits Hearing: Within Normal Limits (WNL) Behavior: Alert, Cooperative, Pleasant mood Pain Pain Assessment Pain Assessment: 0-10 Numeric Pain Intensity Scale Pain Score: 0 - No pain OBJECTIVE Objective Session Data Oral Motor Dentition: Adequate Facial Symmetry: (0) Within Normal Limits Labial Structure and Function: Within Normal Limits (WNL) Lingual Structure and Function: Within Normal Limits (WNL) Palatal Structure and Function: Within Normal Limits (WNL) Mandible Strength and Function: Within Normal Limits (WNL) Motor Speech Voice: Within Normal Limits (WNL) Articulation: Within Normal Limits (WNL) Intelligibility: Intelligible [employer] Clinical Dysphagia Data: Thin Presentation: Cup, Self Fed Oral: Within Normal Limits (WNL) Pharyngeal: Within Normal Limits (WNL) Puree Presentation: Self Fed, Spoon Oral: Within Normal Limits (WNL) Pharyngeal: Within Normal Limits (WNL) Solid/Regular Presentation: Self Fed Oral: Within Normal Limits (WNL) Pharyngeal: Within Normal Limits (WNL) Assessment The patient was observed to consume water, puree, and a gladys cracker at the bedside. Oral control and containment was good. No residue retained in oral cavity. Pharyngeal swallow appeared timely. No coughing, choking or throat clearing associated with any trial. Vocal quality remained clear throughout the evaluation. One swallow per bolus was observed. Overall, the oral and pharyngeal stages of swallowing appeared within normal limits. It is recommended the patient consume a regular diet with thin liquids and adherence to precautions as outlined below. Speech Pathology will continue to follow to ensure diet tolerance. Contact Monitoring: Clinician was wearing the following PPE for the duration of today's session(s): surgical mask and eye protection Goals: Dysphagia Short Term Goal 1 Dysphagia Short Term Goal 1: Patient will tolerate least restrictive diet without signs or symptoms of aspiration. Dysphagia Short Term Goal 1 Progress Toward Goal: Progress toward goal completion: continue on target Diagnosis: Impressions Dysphagia Consistent with a diagnosis of:: Within Normal Limits (WNL) Plan DYSPHAGIA RECOMMENDATIONS: 1. Diet Recommendation-Solids: Regular 2. Diet Recommendation-Liquids: Thin 3. Medication Recommendation: Whole, With liquid, With puree 4. Safety Precautions: Sit upright, eat/drink slowly, take small bites/sips one at a time 5. [employer] will continue to follow. Please page [phone] with questions. [employer] Ongoing Services: Ongoing formal Speech Pathology services Duration of Treatment: until goals met Rehab Potential: Good Chelsy Rojas M.D., M.P.H. - 10/13/2021 2:51 PM CDTAssociated Order(s): IP CONSULT TO DIABETES Diabetes Consult Service New Consultation Note Chief Complaint: Inpatient management of hyperglycemia HPI: Bruce Singh is a 66 y.o. year old male with history of liver transplant (1998, re-transplant 2012) on CellCept, tacrolimus, and prednisone and ESRD on HD awaiting renal transplant who presented with worsening shortness of breath, cough, and fever found to have a glucose of 435 on admission. Since his first liver transplant in 1998, he has been on prednisone 5 mg, and has had a diagnosis ofprediabetes with A1c fluctuating in the high 5 to low 6% range. However, he has had intermittent elevations in his blood glucose during hospitalizations secondary to steroid use, though he has never been on chronic oral anti diabetics or insulin. At the beginning of August 2021, he was initiated on a 6 week prednisone taper starting at 40 mg for his chronic cough, shortness of breath. He had been on 40 mg daily for 2 weeks, then tapered to 20 mgdaily for 2 weeks. However following the decrease in feeling worse, he then took 60 mg for 3 days then went back down to 40 mg daily for 2 weeks. He had tapered down to 20 mg daily when he presented onthis admission. On presentation, glucose was 435, beta hydroxybutyrate of 0.1. Additional lab work was notable for lactate of 1.41, creatinine 2.48. He was otherwise hemodynamically stable. He was given 9 units total of short-acting insulin for his hyperglycemia on presentation, with subsequent decrease of glucose to290. DIABETES SUMMARY: Year diagnosed: n/a, dx pre-diabetes 1999 Current diabetic medications: none Monitoring: no daily glucose checks Blood glucose control typically: unknown Hypoglycemic episodes: n/a History of DKA/HHS: none Outpatient Endocrinology monitoring: none Lab Results Component Value Date HGBA1C 7.4 (H) 10/13/2021 HGBA1C 5.8 04/26/2021 HGBA1C 5.8 (H) 11/27/2020 Lab Results Component Value Date GLUCOSE 216 (H) 10/13/2021 GLUCOSEPOC 240 (H) 10/13/2021 ALBCREARATIO 459 (H) 05/23/2021 LDLCALC 53 11/27/2020 CREATININE 3.39 (H) 10/13/2021 CREATPOC 4.90 (H) 05/24/2021 CREATJAFFE 2.0 (H) 06/15/2013 Past Medical History: Past Medical History: Diagnosis Date ??? Blood Transfusion No Diagnosis 2012 ??? Chronic Kidney Disease Stage 4 Glomerular Filtration Rate 15-29 (HCC) ??? Concussion Loss Of Consciousness Unspecified Duration Initial 2012 ??? Coronary Artery Disease (Unspecified) 2015 ??? Hepatitis Autoimmune (HCC) ??? Hyperlipidemia 2014 ??? Hypertension NOS 2014 ??? Other Complications Of Liver Transplant (HCC) ??? Other Injury Of Unspecified Body Region many in the past ??? Polyp Colon Allergies: Allergies Allergen Reactions ??? Citalopram Other (see [...] transplant medications ??? Erythromycin Other (see comments) Medications: Current Facility-Administered Medications Medication Dose Route Frequency Provider Last Rate Last Admin ??? aspirin chewable tablet 81 mg 81 mg oral Daily Nelli Gloria APRN, C.N.P. 81 mg at 10/13/21 0842 ??? atorvastatin tablet 10 mg (LIPITOR) 10 mg oral Daily Nelli Gloria APRN, C.N.P. 10 mg at 10/13/21 0842 ??? bisacodyL suppository 10 mg (DULCOLAX) 10 mg rectal Daily PRN Nelli Gloria APRN, C.N.P. ??? budesonide 0.5 mg/2 mL nebulizer solution 0.5 mg (PULMICORT) 0.5 mg nasal BID Nelli Gloria APRN, C.N.P. 0.5 mg at 10/13/21 0630 ??? ceFEPIme 500 mg in NaCl 0.9% IVPB (MAXIPIME) 500 mg intravenous Daily before dinner Nelli Gloria APRN, C.N.P. 110 mL/hr at 10/12/21 2100 500 mg at 10/12/21 2100 ??? doxycycline monohydrate tablet 100 mg (ADOXA) 100 mg oral BID Nelli Gloria APRN, C.N.P. 100 mg at 10/13/21 0842 ??? fluticasone furoate-vilanteroL 100-25 mcg/actuation inhaler 1 puff (BREO ELLIPTA DISKUS) 1 puff inhalation Daily Nelli Gloria APRN, C.N.P. 1 puff at 10/13/21 0841 ??? fluticasone propionate 50 mcg/actuation nasal spray 2 spray (FLONASE) 2 spray each nostril DailyNelli Gloria APRN, C.N.P. 2 spray at 10/13/21 0846 ??? heparin (porcine) injection 5,000 Units 5,000 Units subcutaneous Q8H [facility] Nelli Gloria APRN, C.N.P. 5,000 Units at 10/13/21 1425 ??? insulin aspart U-100 injection 0-13 Units (NovoLOG FlexPen) 0-13 Units subcutaneous TID Juan Jose Petersen M.B.B.S. 6 Units at 10/13/21 1219 ??? insulin NPH injection 14 Units 14 Units subcutaneous Julian Stern M.D. 14 Units at 10/13/21 0838 ??? ipratropium-albuteroL 0.5-2.5 mg/3 mL nebulizer solution 3 mL (DUONEB) 3 mL nebulization Q6H PRNelli Miles APRN, C.N.P. ??? ipratropium-albuteroL 0.5-2.5 mg/3 mL nebulizer solution 3 mL (DUONEB) 3 mL nebulization Q6H Nelli Sanford APRN, C.N.P. 3 mL at 10/13/21 1424 ??? Yadira-S.therm tablet 1 tablet (BACID) 1 tablet oral BID with meals Julian Sanchez M.D. 1 tablet at 10/13/21 0842 ??? lamoTRIgine tablet 200 mg (LaMICtaL) 200 mg oral BID Nelli Gloria APRN, C.N.P. 200 mg at 10/13/21 0841 ??? levothyroxine tablet 25 mcg (SYNTHROID, LEVOTHROID) 25 mcg oral Daily before breakfast Nelli Gloria APRN, C.N.P. 25 mcg at 10/13/21 0630 ??? loratadine tablet 10 mg (CLARITIN) 10 mg oral Daily at bedtime Nelli Gloria APRN C.N.P. 10 mg at 10/12/21 2154 ??? montelukast tablet 10 mg (SINGULAIR) 10 mg oral Daily at bedtime Nelli Gloria APRN, C.N.P. 10 mg at 10/12/212153 ??? multivitamin renal failure 100-1 mg 1 tablet (DIALYVITE) 1 tablet oral Daily with dinner Nelli Gloria APRN C.N.P. ??? multivitamin renal failure 100-1 mg 1 tablet (DIALYVITE) 1 tablet oral Daily with dinner Julian Sanchez M.D. ??? mycophenolate capsule 250 mg (CELLCEPT) 250 mg oral BID Julian Sanchez M.D. ??? NIFEdipine XL 24 hr tablet 30 mg (PROCARDIA XL) 30 mg oral Daily Nelli Gloria APRN, C.N.P. 30 mg at 10/13/21 0842 ??? polyethylene glycol powder packet 17 g (MIRALAX) 17 g oral Daily PRN Nelli Gloria APRN, C.N.P. ??? predniSONE tablet 20 mg (DELTASONE) 20 mg oral Daily Nelli Gloria APRN, C.N.P. 20 mg at 10/13/21 0842 ??? sodium chloride-sodium bicarbonate nasal rinse 1 application (NEILMED SINUS RINSE) 1 applicationeach nostril BID Nelli Gloria APRN, C.N.P. 1 application at 10/13/21 0630 ??? tacrolimus capsule 0.5 mg (PROGRAF) 0.5 mg oral BID Julian Sanchez M.D. ??? torsemide tablet 30 mg (DEMADEX) 30 mg oral Daily Julian Sanchez M.D. 30 mg at 10/13/21 1113 Social History: Social History Tobacco Use ??? Smoking status: Never Smoker ??? Smokeless tobacco: Never Used Vaping Use ??? Vaping Use: never used Substance Use Topics ??? Alcohol use: No ??? Drug use: No Family History: Family History Problem Relation Age of Onset ??? Coronary artery disease Mother ??? Heart attack Mother ??? Heart disease Mother ??? Hypertension Mother ??? Heart attack Father ??? Heart disease Father ??? Skin cancer Father ??? Prostate cancer Father ??? Coronary artery disease Father Review of Systems: 10 point ROS completed and negative unless otherwise stated in HPI. Physical Exam: BP 126/75 (BP Location: Left arm, Patient Position: Lying) Pulse 67 Temp 36.3 ??C (Oral) Resp 17 Ht 177.8 cm Wt 71.1 kg SpO2 97% BMI 22.48 kg/m?? General: In no acute distress. HEENT: Normocephalic, atraumatic. No conjunctival icterus or erythema. Grossly normal external ears,nose. Lymph: No cervical or supraclavicular lymphadenopathy. Cardiovascular: Pulses 2+ peripherally. No lower extremity edema bilaterally. Abdomen: No significant central adiposity. Neuro: Grossly intact. Labs: Lab Results Component Value Date NA 128 (L) 10/13/2021 CL 92 (L) 10/13/2021 CREATININE 3.39 (H) 10/13/2021 BUN 45 (H) 10/13/2021 ANIONGAP 14 10/13/2021 GLUCOSE 216 (H) 10/13/2021 CALCIUM 8.0 (L) 10/13/2021 Lab Results Component Value Date WBC 4.4 10/13/2021 HGB 8.0 (L) 10/13/2021 HCT 24.7 (L) 10/13/2021 MCV 97.6 10/13/2021 PLT 166 10/13/2021 Lab Results Component Value Date HGBA1C 7.4 (H) 10/13/2021 Lab Results Component Value Date TSH 4.09 05/24/2021 Lab Results Component Value Date CHOL 120 04/26/2021 Lab Results Component Value Date HDL 32 (L) 04/26/2021 Lab Results Component Value Date LDLCALC 53 11/27/2020 Lab Results Component Value Date TRIG 170 (H) 04/26/2021 Lab Results Component Value Date TTLCHOLHDLRT 3.75 04/26/2021 Assessment and Plan: # Steroid-induced hyperglycemia # hx pre-diabetes following liver transplant in 1998 In summary, this is a 66 y.o. chronically immunosuppressed gentleman on baseline prednisone 5 mg with history of prediabetes, liver transplant, ESRD on hemodialysis who presented with a glucose of 435 on admission in the setting of a recent prolonged high-dose steroid taper. Fortunately, with his hyperglycemia, there is no evidence of any ketoacidosis. His glucose also responded well to 9 units of short-acting insulin on presentation. Given that his clinical presentation is most consistent with steroid induced hyperglycemia, we anticipate largely postprandial hyperglycemia. Most ideal option would be t.i.d. aspart to control postprandial hyperglycemia without causing nocturnal hypoglycemia, however, this is less favored due to inconvenience. As result, NPH would be favorable given its coverage throughout the day. As this is a regimen that he will likely need to be discharged on while he is on higher than physiologic doses of his steroid, we would favor the more simplistic regimen. Will continue to monitor his sugars though, and there is a small chance that he may need t.i.d. aspart if his sugars are not otherwise well controlled with the daily q.a.m. NPH. We will have him meet with our diabetic nurse educator to review insulin management. DPP 4 inhibitors or G LP 1 agonist would also be fair options, however would be more logistically inconvenient given that he will not need to be on an antidiabetic for the long-term. His A1c of 7.4 islikely due to the chronicity of his high-dose steroids, and he likely will not carry a diagnosis of type 2 diabetes moving forward once he is back on his stable prednisone dose. # Secondary adrenal insufficiency # Chronic immunosuppression on cellcept, tacrolimus, prednisone Patient is currently on supra-physiologic doses of steroid for his chronic cough and fatigue. His prior symptoms with reduction of his dosing are secondary to corticosteroid withdrawal reaction. We would recommend the following taper starting today: 20mg for 2 weeks 10mg for 2 weeks 7.5mg for 2 weeks 5mg indefinitely CURRENT ORDERS: Current Facility-Administered Medications: ??? fluticasone furoate-vilanteroL, 1 puff, Daily, 1 puff at 10/13/21 0841 ??? insulin aspart, 0-13 Units, TID, 6 Units at 10/13/21 1219 ??? insulin NPH, 14 Units, QAM, 14 Units at 10/13/21 0838 ??? predniSONE, 20 mg, Daily, 20 mg at 10/13/21 0842 RECOMMENDATIONS: - DCS will write insulin orders, including long acting insulin, carb count or mealtime insulin, and correction scale as needed. - Continue four times a day blood glucose monitoring. Monitoring goal: 100-140 mg/dL. - Diabetic diet 60g carbohydrates diet. - Please notify DCS with ample time prior to dismissal for final recommendations. - Please notify DCS if changes are made to diet, CPN, tube feeds, dextrose- containing IV fluids or steroid treatment. - Please call DCS with all RMGs <60 or >300. Hospital staff may page [phone] during the day with questions. After 6:30 pm please page the primary service. The DCS fellow is available for questions from the primary service overnight through the hospital hat blocking machine operator. Bruce Singh's case and plan of care was discussed with Dr.Jad San. Please see supervisory note for further details. Chelsy Rojas, PGY-1 Internal Medicine [phone] Associated attestation - Kemal San M.D., M.S. - 10/13/2021 4:29 PM CDT I saw and evaluated the patient, participating in the garcia portions of the service. I reviewed the resident/fellow???s note. I agree with the resident/fellow???s findings and plan. In brief, Mr. Singh is a 66-year-old man admitted with glucocorticoid induced hyperglycemia. #1 glucocorticoid induced hyperglycemia He was initiated on NPH insulin to cover for his postprandial hyperglycemia. We will continue to titrate his NPH dosing based on his blood glucose readings. We will use aspart in the meantime to cover for additional hyperglycemia. We will also have him meet with our breastfeeding educator as we expect he will require insulin on discharge. #2 Secondary adrenal insufficiency He has secondary adrenal insufficiency due to exogenous steroids, with prednisone 5 mg daily following his transplantation in 2012. More recently he was on higher doses of prednisone up to 60 mg daily, now down to 20 mg daily. To avoid withdrawal symptoms we recommend the following taper: Prednisone 20 mg daily for 2 weeks, 10 mg daily for 2 weeks, 7.5 mg daily for 2 weeks, and then backon his regular 5 mg daily dose thereafter. We will arrange for outpatient education regarding stress dosing and sick day rules. Carla Burrows APRN, C.N.P., M.S.N. - 10/13/2021 9:58 AM CDTAssociated Order(s): IP CONSULT TO NEPHROLOGY SUBJECTIVE Nephrology consult (hospital) Referring Provider: Nelli Gloria APRN, C.N.P. 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 HISTORY OF PRESENT ILLNESS is a 66 y.o. male who has a history of end stage renal disease related to calcineurin inhibitor toxicity and bilateral renal artery stenosis, and has required dialysis since 06/15/2021. He has been admitted for evaluation of shortness of breath, cough, fever- progressively worsening over the past 10 days. normally dialyzes on Friday, Friday, Friday schedule at [facility]. He is dialyzed with the following prescription; 3.5 hours on a 138 sodium, 3 potassium, 2.5 calcium, 34 bicarbonate dialysate. He runs a blood flow rate of 359 utilizes a right CVC and a right upper extremity AV fistula for dialysis access. He is in the process of transitioning to using the fistula for his treatments. He utilizes a Nipro17 H dialyzer. His estimated dry weight is 71.5 kg. He is administered the following medications on dialysis: Heparin 2000 unit prime and 1000 unit/hour maintenance dose. We will need to clarify IV receives any additional medications with dialysis while we are able to receive his full outpatient dialysis records. Current hemoglobin would suggest that he receives JORGE L therapy. is seen in his hospital room this morning. He tells me that dialysis has been going well.He had his regular dialysis run yesterday and completed his full treatment per his report. He does intermittently have lightheadedness, however he relates this more to activity and shortness of breath than to dialysis. He does often experience cramping in his hands post dialysis in the evenings, of which he experienced last evening. He denies any chest pain today. He again endorses increasing shortness of breath over the past 10 days. He does not note any issues with fluid removal at dialysis. He feels that his weight has been stable and does not anticipate that he has lost any true body weight. OBJECTIVE Admission Weight: 71.1 kg Current Weight: 71.1 kg VITAL SIGNS Vitals 06/06/21 Pre-Dialysis BP (Calculated) 124/68 Post-Dialysis BP (Calculated) 132/84 Lowest BP of Encounter/Session (Calculated) 106/66 Pre-Treatment Weight (kg) 75.1 kg Post-Treatment Weight (kg) 72.6 kg Treatment Weight Change (kg) (kg) -2.5 Requested UF Volume (mL) (mL) 3000 Total UF Removed (mL) (mL) 3010 Treatment Tolerance No Complications Post-Hemodialysis Comments stable treatment I/O 10/11 0000 10/11 23510/12 0000 10/12 0000 10/13 2358 P.O. 440 Intermittent Medications 50 Total Intake(mL/kg) 490 (6.9) Net +490 Unmeasured Urine Occurrence 1 x PHYSICAL EXAM General: is alert and oriented. Resting in the bed. Frequent bothersome coughing. Cardiovascular: Regular rate rhythm. Respiratory: Coarse lung sounds throughout bilateral lung licea, right greater than left.. Respirations are regular and nonlabored. Breathing on room air. Extremities: No edema present in bilateral lower extremities. Vessels: Right IJ tunnel dialysis catheter has gauze covering the exit site. Dressing is clean dry and intact. Right upper extremity AV fistula has a bruit and thrill present. DIAGNOSTICS Results from last 7 days Lab Units 10/13/21 0519 10/12/21 1451 HEMOGLOBIN g/dL 8.0* 8.8* WBC x10(9)/L 4.4 7.2 PLATELETS AUTO x10(9)/L 166 182 Last 2 results Lab Units 10/13/21 0519 10/12/21 1612 10/12/21 1451 SODIUM P mmol/L -- -- 124* POC SODIUM mmol/L -- 124* -- SODIUM mmol/L 128* -- -- POC HCO3 VENOUS mmol/L -- 22 -- BICARBONATE PLASMA mmol/L -- -- 19* BICARBONATE S mmol/L 22 -- -- BUN P mg/dL -- -- 35* BUN mg/dL 45* -- -- CREATININE mg/dL 3.39* -- -- CREATININE P mg/dL -- -- 2.48* CALCIUM P mg/dL -- -- 8.1* CALCIUM mg/dL 8.0* -- -- ASSESSMENT / PLAN #1 End-stage kidney disease secondary to calcineurin inhibitor toxicity and bilateral renal artery stenosis, maintained on [facility] hemodialysis since 06/15/2021 #2 Admitted on 10/12/2021 for evaluation of shortness of breath, cough, fever with symptoms worsening over the past 10 days #3 Status post liver transplant on 05/25/1999 for autoimmune hepatitis with retransplantation on 06/13/2013 for 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 This would indicate immunity to the hepatitis B virus. He will require ongoing yearly monitoring of surface antibody per dialysis unit guidelines. dialyzed last yesterday in the outpatient setting. Per his report he completed his run without difficulty. His dialysis unit is closed throughout the weekend so we are unable to obtain outpatient dialysis records at this time but will do so when able. He has no acute indication for dialysistoday. We will plan for his next dialysis to be on Friday per his usual outpatient routine. We will reassess tomorrow to ensure that no dialysis needs have arisen. I note that his chest CT demonstrates worsening micronodular opacities in the bilateral lower lobes and basilar right middle lobe and lingula. Recommendations: -- Dialyzes on Friday, Friday, Friday schedule -- Dose medications for patients that require hemodialysis -- Renal dialysis diet to include low phosphorus, low sodium, and low potassium -- 1.5 L per day fluid restriction -- Dialyvite one tablet each evening -- Daily weights, standing if possible -- Strict I&O monitoring -- CBC, BMP, magnesium and phosphorus with a.m. labs -- Will clarify outpatient dialysis medications with outpatient dialysis records when available.--I anticipate that he is receiving JORGE L therapy in the outpatient setting. -- Continues on nifedipine XL 30 mg p.o. daily (I note that he takes 90 mg daily in the outpatient setting) -- Outpatient torsemide 30 mg PO daily can be resumed -- Recommend administering antihypertensive medications after dialysis on dialysis days to minimize intradialytic hypotension Disposition: -- Please keep Nephrology informed regarding disposition as it becomes known so that we can ensure that their outpatient hemodialysis needs have been arranged appropriately. Thank you for the opportunity to participate in 's care. For questions or concerns, please page the Neph A ESRD pager at [phone]. Associated attestation - Florence Wren M.D., Ph.D. - 10/13/2021 7:39 PM CDT I was the supervising physician in the delivery of the service. I met the patient interviewed examined him in his room this morning. He is hospitalized with fever in the setting of chronic immunosuppression following liver transplant and has end-stage renal disease and receives dialysis at [facility] ialysis Unit. I reviewed his chest x-ray. He dialyzed in the outpatient setting yesterday. He reports sinus symptoms also. Is using sinus rinses. CT chest demonstrates micronodular opacities bilateral lower lobes and basal right mid lobe and lingula. Exam: BP 126/75 (BP Location: Left arm, Patient Position: Lying) Pulse 67 Temp 36.3 ??C (Oral) Resp 17 Ht 177.8 cm Wt 71.1 kg SpO2 97% BMI 22.48 kg/m?? Sinus congestion Cardiovascular exam bilateral rales/crackles on inspiration right basal signs on exam posterior Mature right arm AV fistula Tunneled dialysis catheter right internal jugular vein. 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 No indication for emergent dialysis today. He should resume his diuretics. We will attempt to provide his next dialysis using his right arm AV fistula. Will obtain his outsidemedical records from his dialysis runs. We await the workup of his pulmonary disease. Amando Banks M.D. - 10/13/2021 8:32 AM CDTAssociated Order(s): IP CONSULT TO HEPATOLOGY GASTROENTEROLOGY & HEPATOBILIARY CONSULT Date/Time: 10/13/2021 8:32 AM CDT Patient Name: Bruce Singh : 1955 Referring Provider: Julian Sanchez M.D. E-CONSULT the patient was not physically seen SUBJECTIVE CHIEF COMPLAINT / REASON FOR CONSULT Evaluation of: Tacrolimus dosing status post repeat liver transplant in 2013 dosing in the setting of possible infection. HISTORY OF PRESENT ILLNESS Mr. Bruce Signh is a 66 y.o. 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 Consultation was requested for evaluation of tacrolimus dosing status post repeat liver transplant in 2013 dosing in the setting of possible infection. Briefly, from an immunosuppression standpoint patient takes CellCept 250 mg twice a day, tacrolimus capsules 0.5 mg twice a day, recent prednisone taper. His tacrolimus trough should run between 1.5-2.5. It seems for his last transplant he has not had any acute rejection episodes. His prior transplant 1998 he did have acute cellular rejection requiring OKT3. Primary team has initiated antibiotics including IV cefepime. Tacro trough levels drawn this morning. It seems well he has been the hospital he has been receiving1 mg at night and 1 mg in the morning Of his tacrolimus. REVIEW OF SYSTEMS Negative except per HPI. OBJECTIVE BP 129/74 (BP Location: Left arm, Patient Position: Lying) Pulse 72 Temp 36.6 ??C (Oral) Resp 18 Ht 177.8 cm Wt 71.1 kg SpO2 100% BMI 22.48 kg/m?? PHYSICAL EXAMINATION Not performed as this was an E consult. DIAGNOSTICS Labs: Recent Labs 10/13/21 0519 10/12/21 1612 10/12/21 1451 WBC 4.4 -- 7.2 HGB 8.0 L -- 8.8 L PLT 166 -- 182 NA 128 L 124 L 124 L CL 92 L -- 89 L BUN 45 H -- 35 H CREATININE 3.39 H -- 2.48 H CALCIUM 8.0 L -- 8.1 L ALBUMIN 3.4 L -- 3.5 BILITOT 0.2 -- 0.5 AST 14 -- 17 ALT 17 -- 21 ALKPHOS 86 -- 101 Imaging: As per HPI. ASSESSMENT AND PLAN Mr. Bruce Singh is a 66 y.o. 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 Consultation was requested for evaluation of tacrolimus dosing status post repeat liver transplant in 2012 dosing in the setting of pos sible infection. At this junction would continue his CellCept level at 250 mg b.i.d.. Would changes tacrolimus back to 0.5 mg capsule b.i.d.. Will follow up on tacrolimus level this morning and make recommendations based off that to keep trough level at his goal between 1.5 to 2.5. Current tacro today was 2.7 after two doses of 1mg of tacro. 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 Please continue 0.5 mg of tacrolimus b.i.d. 2. Continue CellCept 250 mg BID 3. Obtain tacro trough level Friday..2021 4. Prednisone dosing per primary team This patient was staffed with Dr. Willis Mcdermott, with the recommendations discussed with the primary team. Thank you for involving us in the care of this patient. We will continue to follow along. Please page the GI Hepatobiliary consult pager at [phone] with any questions or concerns. Carlos Reese D.O. - 10/13/2021 6:53 AM CDTAssociated Order(s): IP CONSULT TO INFECTIOUS DISEASES TRANSPLANT INFECTIOUS DISEASES INITIAL CONSULT NOTE DEMOGRAPHIC INFORMATION Patient Name: Bruce Singh Clinic Number:[id number] Age: 66 y.o. Birthdate: 1955 Sex: male Service Date/Time: 10/13/21 6:53 AM CDT Referring Provider: Julian Sanchez M.D. REASON FOR CONSULT We are asked by Julian Sanchez M.D. to see Mr. Singh to give further recommendations for evaluation and management of s/p liver transplant, on immunosuppression; hx CMV colitis, C. diff, serratia marcescens, abnormal CT chests; admitted w/ concern for pneumonia. HISTORY OF PRESENT ILLNESS Mr. Singh is a 66 y.o. 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 Upon presentation, temperature 37.8??, heart rate 80, respiratory 20, blood pressure 131/70, O2 saturation 100% on room air. Admission labs notable for hemoglobin 8.8, white blood cell count 7.2, ALC 380, sodium 124, bicarb 19, BUN 35, creatinine 2.48. Liver chemistries notable for total protein 5.5. Lactate 1.4. The patient was started on empiric ceftriaxone and doxycycline. The team reached out to ID grounds restoration specialist, who recommended CT of the chest, respiratory pathogen panel, PCP smear, empiric escalation to cefepime. Upon interview, patient reports worsening productive cough for the last 7-10 days, prompting him to increased prednisone 60 mg for 3 days prior to being advised by his tapeman to decrease the dosing and continue a taper. After discussion with the patient, it appears he has been on greater than 20mg of prednisone daily for the last 6 weeks. He notes 1st onset of fever yesterday during dialysis, but denies fevers prior to this. He notes ongoing fatigue and dyspnea with exertion which proceeded the worsening cough over the last week. He denies headache, eye pain/changes in vision, abdominal pain, nausea, vomiting, diarrhea, skin changes. REVIEW OF SYSTEMS Twelve point review system is negative except as noted in HPI. REVIEW OF HISTORY The following portions of the patient's history were reviewed and updated as appropriate: allergies,current medications, family history, medical history, social history, surgical history and problem list PHYSICAL EXAM OBJECTIVE Vitals: 10/12/21 1752 10/12/21201410/12/21 2300 10/12/21 2346 BP: 123/67 115/66 131/70 Patient Position: Lying Lying Pulse: 65 69 80 Heart Rate: Temp: 36.6 ??C 36.7 ??C 36.7 ??C Resp: 20 20 20 Height: 177.8 cm Weight: SpO2: 100% 100% 100% TempSrc: Oral Oral Oral Pain Score: 0 - No pain 0 - No pain BMI 22.48 kg/m?? General: Not in acute distress, Alert, oriented HEENT: No scleral icterus, PERRLA, no oral lesions, moist mucus membranes Neck: No LAD, no tenderness CVS: S1,S2. RRR, no murmurs Lungs: Rhonchi throughout Abdomen: Soft, nontender, non distended, Bowel sounds present Extremities: No Lower extremity edema Skin: No lesions Lines: Lines, Drains, and Airways Timeline Line Duration Hemodialysis Catheter Permanent (tunneled, implanted) Right Chest 134d 14h Peripherally inserted central catheter Duration PICC Single Lumen 06/14/21 Permanent (tunneled, implanted) Valved Left Chest 120d 18h Peripheral IV Duration Peripheral IV Catheter 10/12/21 18 G Left Forearm 16h Hemodialysis AV Access Duration Hemodialysis AV Access Right AV Fistula 80d 19h Wound Duration Wound (NEW) 07/24/21 Incision Arm Right;Lower 80d 19h Wound (NEW) 07/26/21 Incision Nose 78d 18h DIAGNOSTICS 10/10/2021, CMV DNA quant: 2170 10/12/2021, flu/SARS-CoV-2 PCR: Undetected 10/12/2021, blood cultures: Pending 10/12/2021, respiratory pathogen panel: Negative 10/12/2021, sputum PCP PCR: Pending 10/12/2021, sputum culture: Pending MEDICATIONS Present anti-infective therapies include ceFEPIme, 500 mg, Daily before dinner doxycycline, 100 mg, BID Current immunosuppressant medications: mycophenolate, 500 mg, BID predniSONE, 20 mg, Daily tacrolimus, 1 mg, BID ASSESSMENT / PLAN 66-year-old male with history of repeat liver transplant on chronic immunosuppression, end-stage kidney disease on hemodialysis who presents from dialysis center with fever and shortness of breath. 1. Bibasilar micronodular opacities with bronchial wall thickening, mildly progressed since May2021, query invasive fungal process, endemic mycosis 2. Fever at dialysis, query bloodstream infection, rule out pulmonary infection 3. 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 valganciclovir July 2021 5. 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 Chronic rhinosinusitis with recurrent aspiration status post sinus surgery 08/28/2021 7. Recurrent C diff infection, last episode 05/24/2021 8. End-stage kidney disease on IHD via brachiocephalic fistula The patient presents with fever which occurred during dialysis and acute worsening of cough with subacute fatigue and dyspnea with exertion. CT findings are notable for predominantly bibasilar micro nodularities, which have progressed since prior CT from May 2021 in the setting of approximately 40 mg of prednisone daily for the last 6 weeks. Constellation of symptoms is most concerning for atypical infection including endemic mycoses (Histoplasma, Blastomyces), pneumocystis, and non tuberculousmycobacterial infection. Other considerations include chronic aspiration although this is felt a diagnosis of exclusion in the setting of an immunocompromised host and recent steroid administration. Patient will require noninvasive workup and rule out of bacteremia (given onset of fever and chills during dialysis via right brachiocephalic fistula). Should noninvasive workup returned negative, would pu rsue BAL ICH protocol in the setting of subacute dyspnea and profound fatigue in a immunocompromised/lymphopenic host. Of note, the patient has recently developed CMV viremia in the setting of chronic lymphopenia, high-dose steroids, and a recent bout of biopsy-proven CMV colitis. He is without symptoms to suggest invasive CMV disease at this time. We will start p.o. valganciclovir at this time with follow-up CMV quant in 1 week. Given current administration of antimicrobials and recurrent/recent C diff associated diarrhea, would start p.o. vancomycin as prophylaxis. RECOMMENDATIONS 1. Please obtain fungal/TB blood culture 2. Please obtain urine Histoplasma antigen, urine Blastomyces antigen (if able to collect any urine) 3. Agree with Histoplasma and Blastomyces serum antibody (to be collected) 4. Please obtain serum Aspergillus antigen, serum 1 3 beta D glucan, serum LDH, serum cryptococcal antigen 5. Please start valganciclovir 200 mg 3 times weekly after dialysis, starting today 6. Please start p.o. vancomycin 125 mg b.i.d. as C diff prophylaxis while on antimicrobials 7. Please start Bactrim single-strength 1 tab daily as PCP prophylaxis 8. Please consult pulmonary service for consideration of bronchoscopy with BAL ICH protocol 9. Continue cefepime 500 mg Q 24 hours (dosing in hemodialysis) and doxycycline 100 mg b.i.d. for now while awaiting blood culture and workup as detailed above 10. Repeat CMV DNA quant on 10/17/2021 11. Further recommendations pending clinical course and diagnostics Discussed with Attending, Dr. Santamaria. ID will continue to follow. Please page [phone] with questions. Carlos Reese D.O., Pager [phone] Transplant Infectious Diseases Fellow Associated attestation - Harleen Santamaria M.D. - 10/13/2021 12:58 PM CDT I saw and evaluated the patient, participating in the garcia portions of the service. I reviewed Dr. Reese's note. I agree with his findings and plan. Mr. Singh is s/p liver re-tx in 2012 (for hepatic artery thrombosis, original for autoimmine hepatitis), with bronchiolitis and sinusitis symptoms, very recent GI invasvie CMV disease, approaching 6-8 week course of high dose steroids, on IHD and listed for transplant. He is on tacro/pred/cellcept. He is admitted for fever/ chills during dialysis (has started using the fistula about 7 days ago, but still had the IHD line), and progressive dyspnea over past 7 days in background of malaise. Given his significant immunocompromised state, we are evaluating for possible OI. Of note he has notbeen on PCP prophylaxis (risk include high dose steroids, age, lymphopenia, recent cmv disease). Recommend Bactrim for PCP prophylaxis to be started. Evaluation notable for neg RP panel, Viremia with CMV, and progressive micronodular infiltrate on CTchest. He is on room air, and comfortable at rest. CMV symptomatic viremia- early relapse in setting of high dose steroids after recent CMV disease. Recommend treatment dose valganciclovir, as currently order 450 q 48, ihd days to give after ihd, and weekly monitoring. Management of active CMV infection with oral valcyte on IHD is challenging, and dosing not well established - may need to go back to IV ganciclovir if CMV level rising. Pending blood culture data, ok to continue current antimicrobials (cefepime/doxy). Please draw fungal blood cx. For the progressive micronodular infiltrate and worsening dyspnea with activity. Non-invasive funglawork up, fungal/mtb/blood cx, LDH and fungitell and PCP PCR pending. If above work up with no diagnosis, and pt with ongoing dyspnea and worsening micronodular infiltrate, and the recent high dose steroids- recommend Pulmonary Medicine consult to evaluate for ICH BAL need/timing of such procedure. TXID will follow along with you. documented in this encounter Nursing Notes Chastity Nichols R.N. - 10/16/2021 5:03 PM CDT Shift Goals: Clinical Goals for the Shift: Pt will remain VSS and maintaine controlled RMGs Identify possible barriers to meeting goals/advancing plan of care: none End of Shift Summary: Discharge VSS on room air. Pt had HD cath removed via IR, site C/D/I. AVS and education reviewed with patient. All questions and concerns were addressed; pt had no further questions or concerns at this time. PIV removed, hemostasis achieved. Pt able to teach back education regarding insulin and glucose testing. Pt transporting to [facility] via a friend. Transport ordered. Problem: PAIN - ADULT Goal: PT VERBALIZES/DEMONSTRATES ADEQUATE COMFORT LEVEL OR BASELINE 10/16/2021 1734 by Gershman, Chastity R, R.N. Outcome: Adequate for Discharge 10/16/2021 173 by Chastity Nichols, R.N. Outcome: Adequate for Discharge Problem: KNOWLEDGE DEFICIT Goal: Patient/family/caregiver demonstrates understanding of disease process, treatment plan, medications, and discharge instructions 10/16/2021 173 by Chastity Nichols, R.N. Outcome: Adequate for Discharge 10/16/2021 173 by Chastity Nichols, R.N. Outcome: Adequate for Discharge Problem: INFECTION - ADULT Goal: Absence of infection during hospitalization 10/16/2021 173 by Chastity Nichols, R.N. Outcome: Adequate for Discharge 10/16/2021 173 by Chastity Nichols, R.N. Outcome: Adequate for Discharge Problem: SKIN/TISSUE INTEGRITY Goal: Skin/Tissue integrity maintained or improved 10/16/2021 173 by Chastity Nichols, R.N. Outcome: Adequate for Discharge 10/16/2021 173 by Chastity Nichols, R.N. Outcome: Adequate for Discharge Goal: Oral and Nasal mucous membranes remain intact 10/16/20211733 by Chastity Nichols, R.N. Outcome: Adequate for Discharge 10/16/20211732 by Chastity Nichols, R.N. Outcome: Adequate for Discharge Problem: SAFETY ADULT Goal: Maintain a safe environment 10/16/20211733 by Chastity Nichols, R.N. Outcome: Adequate for Discharge 10/16/20211732 by Chastity Nichols, R.N. Outcome: Adequate for Discharge Problem: DISCHARGE PLANNING Goal: Patient discharge needs identified 10/16/20211733 by Chastity Nichols, R.N. Outcome: Adequate for Discharge 10/16/20211732 by Chastity Nichols, R.N. Outcome: Adequate for Discharge Problem: SAFETY ADULT - RISK FOR FALL AND OR FALL INJURY Goal: Patient remains free from fall/fall injury 10/16/2021 173 by Chastity Nichols, R.N. Outcome: Adequate for Discharge 10/16/2021 173 by Chastity Nichols, R.N. Outcome: Adequate for Discharge Problem: RESPIRATORY - ADULT Goal: Achieves optimal ventilation and oxygenation 10/16/2021 1734 by Chastity Nichols R.NDemetrius Outcome: Adequate for Discharge 10/16/2021 1733 by Chastity Nichols R.N. Outcome: Adequate for Discharge Problem: METABOLIC/FLUID AND ELECTROLYTES - ADULT Goal: Glucose maintained within prescribed range 10/16/2021 1734 by Chastity Nichols R.N. Outcome: Adequate for Discharge 10/16/2021 1733 by Chastity Nichols R.N. Outcome: Adequate for Discharge Diana Costello R.N. - 10/16/2021 5:16 AM CDT Problem: PAIN - ADULT Goal: PT VERBALIZES/DEMONSTRATES ADEQUATE COMFORT LEVEL OR BASELINE Outcome: Progressing Note: Pt denies pain Problem: SAFETY ADULT - RISK FOR FALL AND OR FALL INJURY Goal: Patient remains free from fall/fall injury Outcome: Progressing Note: Pt remains free from falls, ambulating independently Problem: METABOLIC/FLUID AND ELECTROLYTES - ADULT Goal: Glucose maintained within prescribed range Outcome: Progressing Note: Pt BG was elevated at 351 at HS. At 0030 check was 136. Service asked to check again at 0200 and was 116. Pt asked to check his BG at 0400. Was 108. Shift Goals: Clinical Goals for the Shift: VSS and rest Identify possible barriers to meeting goals/advancing plan of care: infection End of Shift Summary: Pt was Vitally stable. Slept 6+ hours overnight. Denies pain. Chastity Nichols RSteve - 10/15/2021 11:33 AM CDT Shift Goals: Clinical Goals for the Shift: Pt will complete dialysis Identify possible barriers to meeting goals/advancing plan of care: End of Shift Summary: VSS on room air. Pt completed dialysis this morning, appropriate meds administered and others held/rescheduled when he returned to the unit. Pt has increased cough today, but states he feels like he can breathe better today. PRN Cepacol and scheduled Nebs administered. Pt actively participates in his care. Problem: PAIN - ADULT Goal: PT VERBALIZES/DEMONSTRATES ADEQUATE COMFORT LEVEL OR BASELINE Outcome: Progressing Note: Pt denied pain during shift. Lidocaine-prilocaine cream applied to fistula prior to dialysis. Problem: INFECTION - ADULT Goal: Absence of infection during hospitalization Outcome: Progressing Note: Pt continues on both IV and PO therapies and tolerating. Problem: SAFETY ADULT Goal: Maintain a safe environment Outcome: Progressing Note: Pt up ad darryl, demonstrates safe behaviors, and is call light appropriate. Problem: METABOLIC/FLUID AND ELECTROLYTES - ADULT Goal: Glucose maintained within prescribed range Outcome: Progressing Note: RMG before breakfast 91, no correction given and pt ate 100% breakfast before dialysis. After dialysis and before lunch, RMG was 165 and required no correction per order. Dinner RMG 194 and treated with 2u aspart per order. Mary Lou Mahajan R.NDemetrius - 10/15/2021 5:02 AM CDT Shift Goals: Clinical Goals for the Shift: VSS Identify possible barriers to meeting goals/advancing plan of care: SOB End of Shift Summary: Patient remained vitally stable throughout the shift, patient was able to sleep most of the night. Patient will have dialysis this morning. Patient with minimal SOB, still persistent cough, O2 99-100% RA. Problem: SAFETY ADULT - RISK FOR FALL AND OR FALL INJURY Goal: Patient remains free from fall/fall injury Outcome: Progressing Note: Patient is call light appropriate, steady gait, independent with ambulation. Problem: METABOLIC/FLUID AND ELECTROLYTES - ADULT Goal: Glucose maintained within prescribed range Outcome: Progressing Note: RMG 157 @bedtime. ANDERT Liana oHrn R.N. - 10/14/2021 3:39 PM CDT Problem: PAIN - ADULT Goal: PT VERBALIZES/DEMONSTRATES ADEQUATE COMFORT LEVEL OR BASELINE Outcome: Progressing Note: Pt has reported little to no pain today. Pt has not required any PRN medications and has been able to reposition on their own. Problem: RESPIRATORY - ADULT Goal: Achieves optimal ventilation and oxygenation Outcome: Progressing Note: Pt has maintain an oxygen saturation at 100% all day on room air with no discomfort or SOB. Shift Goals: Clinical Goals for the Shift: VSS Identify possible barriers to meeting goals/advancing plan of care: None End of Shift Summary: Pt reported no pain through today and has been able to reposition appropriately. He has been walking independently in his room with non-slip socks on. He was also able to showeredtoday. Pt has been able to take all medications whole with water. He has had a cough all day that hesaid it feels better than it has been. Pt required treatment for his BS of 170 this morning and 319 this evening. Pt requested cough drops to help with his cough and dry throat. Pt has also had adequate output. Pt is very good at communicating needs. VSS ary Lou Kumar RDemetriusNDemetrius - 10/14/2021 6:13 AM CDT Shift Goals: Clinical Goals for the Shift: VSS Identify possible barriers to meeting goals/advancing plan of care: SOB End of Shift Summary: Patient remained vitally stable this shift, denies pain. Patient slept around 0200, Melatonin given at 0100. Problem: SAFETY ADULT - RISK FOR FALL AND OR FALL INJURY Goal: Patient remains free from fall/fall injury Outcome: Progressing Note: Patient is call light appropriate, steady gaitm independent in the room. Problem: RESPIRATORY - ADULT Goal: Achieves optimal ventilation and oxygenation Outcome: Progressing Note: Patient with persistent cough, SOB is improving, O2 98-100% RA Problem: METABOLIC/FLUID AND ELECTROLYTES - ADULT Goal: Glucose maintained within prescribed range Outcome: Progressing Note: RMG 318 @bedtime, Aspart 4u given per orders, blood sugars improved to 261 @0130 ANDERT Shawn Riley RDemetriusNDeemtrius - 10/13/2021 3:19 PM CDT Problem: PAIN - ADULT Goal: PT VERBALIZES/DEMONSTRATES ADEQUATE COMFORT LEVEL OR BASELINE Outcome: Progressing Note: Patient denies pain. Problem: KNOWLEDGE DEFICIT Goal: Patient/family/caregiver demonstrates understanding of disease process, treatment plan, medications, and discharge instructions Outcome: Progressing Note: Patient educated on diet after being diagnosed with type 2 DM. Had questions about his diet and being hungry still after meals. Also was educated on why he is not allowed to order between meals from room service. Problem: INFECTION - ADULT Goal: Absence of infection during hospitalization Outcome: Progressing Note: Patient was tested for MRSA, Hemoquant, and induced sputum all sent to labs for testing today.VSS stable. Problem: SAFETY ADULT Goal: Maintain a safe environment Outcome: Progressing Note: Patient is call light appropriate. Shift Goals: Clinical Goals for the Shift: VSS, Diabetes Management Identify possible barriers to meeting goals/advancing plan of care: none End of Shift Summary: VSS on room air. Patient RMGs remain in the mid to upper 200s. Insulin given per sliding scale. Patient also educated on diet order and eating between meals. See above informationfor further details. Patient is independent in room. No other concerns at this time. Mary Lou Mahajan RDemetriusN. - 10/13/2021 6:02 AM CDT Shift Goals: Clinical Goals for the Shift: Decreased dyspnea Identify possible barriers to meeting goals/advancing plan of care: SOB End of Shift Summary: Patient remained vitally stable throughout the shift, patient was able to sleep intermittent at night. Denies pain. Voided x2 this shift. Problem: SAFETY ADULT - RISK FOR FALL AND OR FALL INJURY Goal: Patient remains free from fall/fall injury Outcome: Progressing Note: Patient is call light appropriate, independent in the room, steady gait. Problem: RESPIRATORY - ADULT Goal: Achieves optimal ventilation and oxygenation Outcome: Progressing Note: Persistent productive cough, patient states is his baseline. O2 98-100% RA, no SOB. Sputum sample sent. Problem: METABOLIC/FLUID AND ELECTROLYTES - ADULT Goal: Glucose maintained within prescribed range Outcome: Progressing Note: RMG 283 @bedtime and 287 @0200. documented in this encounter ED Notes Nick Frias M.D. - 10/13/2021 5:32 PM CDT I have personally seen and examined this patient. I have fully participated in the care of this patient. I have reviewed all clinical information including history, physical exam, orders, and plan. I agree with the note of the resident. IMPRESSION AND PLAN Given his symptoms and new fevers we will treat for pneumonia with ceftriaxone and doxycycline. Additionally, there are multiple abnormalities on labs. His hemoglobin is down 1 point though this is likely secondary to his renal disease. His glucose is significantly elevated at 435 though there are no signs or laboratory findings of DKA or HHS. This is likely elevated in the setting of his prednisone use. We will treat with 5 units of insulin given he is insulin naive. Patient will be admitted for further monitoring of hyperglycemia and pneumonia. Final Diagnoses: as of 10/13/211731 Pneumonia Hyperglycemia Immunodeficiency Due To Drugs (HCC) Transplant Liver (HCC) 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) Nick Frias M.D. 10/13/211731 Irlanda Hall M.D., M.S. - 10/12/2021 4:31 PM CDT Care of patient transferred to nh by Dr. Frias. Disposition pending Workup for fever, cough and SOB. Patient is a 66-year-old male status post liver transplant, immunosuppression, on dialysis for end-stage renal disease, coming to the emergency department for 10 days of cough, shortness of breath, andfever. In the emergency department he appears to be in no respiratory distress, he is hyponatremic sodium 124, his creatinine is 2.48, normal potassium 4.7, pH 7.44, bicarb 22, elevated glucose 435. His COVIDand influenza are negative. This is a new finding of hyperglycemia for him. He is taking a prednisone taper and has been reducing his doses from 60, to 40, to 20 mgs. His chest x-ray shows reticulonodular opacities in the mid and lower lungs. He is not hypoxic, he is not in respiratory distress. Because of his immunosuppression and new diagnosis of hyperglycemia he will need admission to the hospital for IV antibiotics and insulin. Currently he is not acidotic. He produces minimal urine a day, approximately 15 cc. The plan will be to give him small amount of IV fluid for his hyperglycemia in the setting of end-stage renal disease on dialysis, and 10 units of insulin. Will re-evaluate 1 hour after the 10 units before providing further insulin to ensure he is not hypoglycemic. He will receive ceftriaxone and doxycycline for the management of pneumonia in the setting of immunosuppression. At this point he does not appear to be septic, I do not think he needs ICU level of care. He will beadmitted to medicine for management of hyperglycemia and pneumonia. VITAL SIGNS BP 119/79 Pulse 73 Temp 37.8 ??C (Oral) Resp 17 Wt 71.1 kg SpO2 98% BMI 23.09 kg/m?? Final Diagnoses: as of 10/12/21 1631 Pneumonia Hyperglycemia Immunodeficiency Due To Drugs (HCC) Transplant Liver (HCC) 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) Irlanda Hall M.D., M.S. 10/12/21 1636 Dex Rouse M.D., Ph.D. - 10/12/2021 1:52 PM CDT SUBJECTIVE CHIEF COMPLAINT/REASON FOR VISIT Cough and Shortness of Breath HISTORY OF PRESENT ILLNESS Bruce Singh is a 66-year-old gentleman with a history of cryptogenic cirrhosis s/p liver transplant, ESRD on dialysis MWF, HTN, HLD, and COPD who presents with shortness of breath and cough. Patientreports worsening cough and shortness of breath over the last 1-1.5 weeks. It has been productive ofwhite milky sputum. Patient is having fatigue, weakness, chills, and fevers to 101 the started today. He also reports nausea and poor appetite. He denies any vomiting, abdominal pain, or diarrhea. Patient is fully vaccinated for COVID and denies any recent sick contacts. REVIEW OF SYSTEMS Constitutional: Positive for appetite change, chills, fatigue and fever. HENT: Positive for congestion. Negative for rhinorrhea and sore throat. Eyes: Negative for visual disturbance. Respiratory: Positive for cough and shortness of breath. Negative for chest tightness. Cardiovascular: Negative for chest pain and palpitations. Gastrointestinal: Positive for nausea. Negative for abdominal pain, constipation, diarrhea and vomiting. Genitourinary: Negative for dysuria, frequency and urgency. Musculoskeletal: Positive for myalgias. Negative for extremity pain. Neurological: Positive for weakness and light-headedness. Negative for headaches. Psychiatric/Behavioral: Negative for confusion. OBJECTIVE Initial Vitals [10/12/21 1342] Temperature Pulse Rate Heart Rate Resp Rate Blood Pressure SpO2 37.8 ??C 91 -- (!) 32 109/66 98 % Pain Score -- PHYSICAL EXAMINATION Constitutional: Nursing note and vitals reviewed. No distress. HENT: Head: Normocephalic and atraumatic. No signs of injury. Nose: Nose normal. No nasal discharge. Eyes: Conjunctivae and EOM are normal. Cardiovascular: Normal rate and regular rhythm. Pulses are palpable. No murmur heard. Pulmonary/Chest: Tachypnea noted. No respiratory distress. He has wheezes. He has no rhonchi. He hasrales. Abdominal: Soft. Bowel sounds are normal. exhibits no distension. There is no abdominal tenderness. There is no rebound and no guarding. Musculoskeletal: General: No edema. Normal range of motion. Cervical back: Normal range of motion. Neurological: Alert and oriented to person, place, and time. Skin: Skin is warm, dry and normal color. He is not diaphoretic. There is jaundice. Psychiatric: He has a normal mood and affect. Behavior is normal. ASSESSMENT/PLAN Bruce Singh is a 66-year-old gentleman with a history of cryptogenic cirrhosis s/p liver transplant, ESRD on dialysis MWF, HTN, HLD, and COPD who presents with shortness of breath and cough. Patient has been febrile at home and is borderline febrile here. Vitals here are notable for tachypnea. On exam he has bilateral rales and wheezes and appears slightly jaundiced. I am most concerned for pneumonia. Differential diagnosis also includes but is not limited to COVID, COPD exacerbation, pulmonary edema/volume overload, and metabolic electrolyte abnormalities. We will obtain labs and imaging to further evaluate and treat his symptoms accordingly. COVID and influenza testing are negative. Chest x-ray does not show any significant change but does show a reticulonodular opacities in the mid and right lower lung. Given his symptoms and new fevers we will treat for pneumonia with ceftriaxone and doxycycline. Additionally, there are multiple abnormalities on labs. His hemoglobin is down 1 point though this is likely secondary to his renal disease. His glucose is significantly elevated at 435 though there are no signs or laboratory findings of DKA or HHS. This is likely elevated in the setting of his prednisone use. We will treat with 5 units of insulin given he is insulin naive. Patient will be admitted for further monitoring of hyperglycemia and pneumonia. Sign-out was given to the admitting provider. Patient is in agreement with the plan. I reviewed previous medical records including documentation from previous visits. I personally reviewed the lab result(s) and my interpretation is documented in ED Course. I personally reviewed the radiology image(s) and reviewed the radiology report(s). The Radiology exam interpretation(s) is/are documented in ED Course. I independently reviewed the ECG tracing and my interpretation is documented in ED Course. Case reviewed with other health medicare sales executive, including Admitting Provider. ED Course as of 10/12/21 1707 FriOct 12, 2021 1406 ECG 12 Lead IMPRESSION: Normal sinus rhythm Normal ECG 1433 SARS CoV-2, PCR, Rapid, V: Undetected 1457 DX Chest AP or PA and Lateral 2 Views IMPRESSION: No significant change since 07/31/2021. Reticulonodular opacities in the mid and lower lungs. Right IJ CVC tip in the low SVC. Aortic calcifications. 1458 Lactate, POCT: Lactate, POCT Collected 1.41 1520 Hemoglobin(!): 8.8 Down from 9.8 measured 2 days ago. 1604 Glucose, P(!!): 435 1605 Anion Gap, P(!): 16 1605 Bicarbonate, P(!): 19 1605 Sodium, P(!): 124 Final Diagnoses: as of 10/12/21 170 Pneumonia Hyperglycemia Immunodeficiency Due To Drugs (HCC) Transplant Liver (HCC) 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) Dex Rouse M.D., Ph.D. Resident 10/12/21 1736 documented in this encounter Miscellaneous Notes Documentation Clarification - Meghann Ansari M.D., Ph.D. - 10/16/2021 5:03 PM CDT PROVIDER RESPONSE TEXT: To clarify, the appropriate diagnosis supported by the clinical indicators: Sepsis was ruled out <LCI> QUERY TEXT: VALIDATION DOCUMENTATION REQUEST A diagnosis in the record noted below requires additional clinical criteria or rationale to validate. [[Sepsis was ruled out]] [[Sepsis was confirmed as evidenced by the following criteria:]] [[[Please add additional clinical criteria/rationale to support the diagnosis]]] Other (explain) Clinically unable to determine (explain) Clinical Indicators/Risk Factors/Treatment: ED PN (Nasim): 66-year-old gentleman with a history of cryptogenic cirrhosis s/p liver transplant, ESRD on dialysis MWF, HTN, HLD, and COPD who presents with shortness of breath and cough. Patient reports worsening cough and shortness of breath over the last 1-1.5 weeks. It has been productive of white milky sputum. Patient is having fatigue, weakness, chills, and fevers to 101 the started today. Temp 37.8; Pulse 91, RR 32 PN (Daniel) 10/13/21: #Sepsis 2/2 CAP c/f OI in IC pt, POA DS (Elan) 10/16/21: Principal Diagnosis: Pneumonia Lab: CBC WITH DIFFERENTIAL, B 10/12/21: WBC 7.2; Platelets 182 Lactate 10/12/21: 1.41 Hepatic Function Panel: BILIRUBIN TOTAL, S: 0.5 mg/dL BILIRUBIN DIRECT, S: < 0.2 mg/dL Please contact me if you have questions. Thank you, DILMA Alfredo Clinical Documentation Dimensional Integration Engineer Query created by: DILMA Alfredo 10/18/2021 06:25 AM CDT </LCI> Documentation Clarification - Meghann Ansari M.D., Ph.D. - 10/16/2021 5:03 PM CDT PROVIDER RESPONSE TEXT: To clarify, the appropriate diagnosis supported by the clinical indicators: Pneumonia, possibly secondary to aspiration <LCI> QUERY TEXT: DOCUMENTATION CLARIFICATION REQUEST Please clarify/specify the appropriate diagnosis supported in the clinical indicators below. [[Pneumonia, possibly secondary to aspiration]] Other (explain) Clinically unable to determine (explain) Clinical Indicators/Risk Factors/Treatment: Infectious Disease PN ([facility]) 10/16/21: a 66-year-old male with history of repeat liver transplant on chronic immunosuppression, end-stage kidney disease on hemodialysis who presents from dialysis center with fever and shortness of breath. CT findings are atypical for typical bacterial pneumonia, however, this may represent an aspirationevent. We will plan to treat with a 7 day course targeting Serratia species with Bactrim (which will be continued indefinitely in the setting of PCP prophylaxis). 6. Chronic rhinosinusitis with recurrent aspiration status post sinus surgery 08/28/2021 CT Chest 10/12/21: FINDINGS: Compared to the prior examination, worsening micronodular opacities in the bilateral lower lobes, basilar right middle lobe and lingula suspicious for worsening infectious/inflammatory pneumonia, possibly from aspiration. Speech consult (Donnell) 10/14/21: Mr. Singh has been on a regular diet with thin liquids and deniesany difficulty with chewing/swallowing...Dysphagia Short Term Goal 1: Patient will tolerate least restrictive diet without signs or symptoms of aspiration. Impressions Dysphagia Consistent with a diagnosis of:: Within Normal Limits (WNL) DS (Elan) 10/16/21: Principal Diagnosis: Pneumonia ...status post ethmoidectomy endoscopy, maxillary antrostomy and frontal sinusotomy endoscopy for his chronic sinusitis on July 26, 2021; hypertension; hyperlipidemia, hypothyroidism on levothyroxine; recurrent c diff infection; aspiration pneumonia Please contact me if you have questions. Thank you, DILMA Alfredo Clinical Documentation Dimensional Integration Engineer Query created by: DILMA Alfredo 10/18/2021 06:43 AM CDT </LCI> Hospital Course - Meghann Ansari M.D., Ph.D. - 10/14/2021 12:49 PM CDT Mr. Singh is a 66 y.o. 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 Mr. Singh lives alone in his own home in [place], [place]. He ambulates independently; he occasionally uses a walker at home. He reports he fell off a ladder earlier last year but otherwise denies any falls in the last year. He performs his own ADLs. 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 He denies any alcohol, drug or tobacco usage. Mr. Singh is and has been followed by multiple teams here at [facility] including Liver Transplant, Kidney/Pancreas Transplant, Nephrology (dialysis), Transplant Infectious Diseases, ENT, GI, and Pulmonology. Mr. Singh endorses chronic SOB at baseline; however, he notes this has worsened over the past month and much more over the past few days. He has also noticed a worsening cough and had a reported fever at home of 101 degrees. He normally would be able to walk around the block before he would feel short of breath. Over the last 10 days, he has felt more short of breath and could only walk a short distance prior to needing to sit down. Reports with this he feels like his heart is racing and he notes his HR has been to the 120s with exertion and he occasionally feels dizzy with this. He reports he has been coughing up thick phlegm at home. He denies a history of TERRY or oxygen usage. He reports he has not been diagnosed with COPD but reports he has been told he possibly may have COPD. He denies headache, vision changes, orthopnea, URI symptoms, coughing with eating, trouble swallowing, GERD, nausea, vomiting, diarrhea, constipation, dark or tarry stools, bloody stools, numbness, tingling, focal weakness. On the day of admission, he was receiving his intermittent hemodialysis (Friday/Friday/Friday) and reported chills and fever, worsening dyspnea with exertion, frequent cough with mucus production and lightheadedness. He was advised to go to the emergency department at [facility] for further evaluation and management. In the [facility] ED, he was afebrile, heart rate was overall normal, respiratory rate was initially elevated at 32 but then normalized, blood pressure was normal and he was oxygenating well on room air. Laboratory workup included VBG, CBC, CMP, lactate, beta hydroxybutyrate, blood cultures, influenza and SARS-CoV-2; significant for hemoglobin 8.8, MCV 99.3, lymphocytes 0.38, sodium 124, potassium 4.7, BUN 35, creatinine 2.48, glucose 435, lactate 1.41, beta hydroxybutyrate 0.1. Chest x-ray showed no significant change since July 31, 2021; reticular nodular opacities in the mid and lower lungs noted. He was given 1 g IV ceftriaxone and 100 mg IV doxycycline. He was additionally given 5 units of aspartgiven hyperglycemia. He was then admitted to the Medicine 5 service for ongoing care. He was seen by infectious disease, liver transplant, endocrine, nephrology. He was worked up for infections in an immunocompromised host. Sputum grew serratia that was susceptible to Bactrim. The patient will continue treatment for a total 7 days. He will also continue oral vancomycin. For slow prednisone taper, he had elevated serum glucose levels. He was seen by the [facility] service and started on insulin. He received education on glucose monitoring. On the day of discharge (10/16), the tunneled dialysis line was removed. The primary team touched base with Endocrinology, Hepatobiliary, and ID, and all agreed that the patient was stable for discharge home. The patient will get a follow-up CT chest in 4 weeks. documented in this encounter Plan of Treatment Upcoming Encounters Date Type Specialty Care Team Description 04/24/2022 Appointment Laboratory Medicine Scott Granger P.A.-C. [address] [place] [phone] 04/25/2022 Office Visit Otorhinolaryngology Dex Matta APRN, C.N.P., M.S.N. [address] [place] [phone] 05/08/2022 Appointment Laboratory Medicine Scott Granger P.A.-C. [address] [place] [phone] 05/08/2022 Clinical Admitting/Central Communication Scheduling 05/10/2022 Appointment Radiology Jeremie Rose M.D. [address] [place] [phone] 05/10/2022 Comprehensive Visit Orthopedic Surgery Warner Graves M.D. [address] [place] [phone] 05/22/2022 Appointment Laboratory Medicine Scott Granger P.A.-C. [address] [place] [phone] 06/05/2022 Appointment Laboratory Scott Royal P.A.-C. [address] [place] [address] [phone] 06/19/2022 Appointment Laboratory Medicine Scott Granger P.A.-C. [address] [place] [phone] 07/03/2022 Appointment Laboratory Medicine Scott Granger P.A.-C. [address] [place] [phone] 07/17/2022 Appointment Laboratory Medicine Scott Granger P.A.-C. [address] [place] [phone] 07/31/2022 Appointment Laboratory Medicine Scott Granger P.A.-C. [address] [place] [phone] 08/14/2022 Appointment Laboratory Medicine Scott Granger P.A.-C. [address] [place] [phone] 08/28/2022 Appointment Laboratory Medicine Scott Granger P.A.-C. [address] [place] [phone] documented as of this encounter Procedures Procedure Name Priority Date/Time Associated Comments Diagnosis GLUCOSE POCT, B Routine 10/16/2021 3:39 Results f or PM CDT this procedure are in the results section. IR DIALYSIS / HIGH RAD - Routine 10/16/2021 3:14 Resul ts for FLOW CATHETER (most inpatients PM CDT this proce dure REMOVAL and all are in the outpatients) results section. GLUCOSE POCT, B Routine 10/16/2021 5:54 Results f or AM CDT this procedure are in the results section. GLUCOSE POCT, B Routine 10/16/2021 4:25 Results f or AM CDT this procedure are in the results section. GLUCOSE POCT, B Routine 10/16/2021 2:12 Results f or AM CDT this procedure are in the results section. GLUCOSE POCT, B Routine 10/16/2021 12:31 Results for AM CDT this procedure are in the results section. GLUCOSE POCT, B Routine 10/15/2021 8:15 Results f or PM CDT this procedure are in the results section. GLUCOSE POCT, B Routine 10/15/2021 5:24 Results f or PM CDT this procedure are in the results section. GLUCOSE POCT, B Routine 10/15/2021 1:03 Results f or PM CDT this procedure are in the results section. GLUCOSE POCT, B Routine 10/15/2021 11:57 Results for AM CDT this procedure are in the results section. RENAL FUNCTION Timed 10/15/2021 8:08 Results fo r PANEL, S AM CDT this procedure are in the results section. TACROLIMUS LEVEL, B Timed 10/15/2021 8:08 Resul ts for AM CDT this procedure are in the results section. CBC WITH Timed 10/15/2021 8:08 Results for DIFFERENTIAL, B AM CDT this procedu re are in the results section. GLUCOSE POCT, B Routine 10/15/2021 7:39 Results f or AM CDT this procedure are in the results section. MAGNESIUM, S Routine 10/15/2021 4:39 Results for AM CDT this procedure are in the results section. GLUCOSE POCT, B Routine 10/14/2021 11:19 Results for PM CDT this procedure are in the results section. GLUCOSE POCT, B Routine 10/14/2021 5:02 Results f or PM CDT this procedure are in the results section. HEMODIALYSIS Routine 10/14/2021 1:52 PM CDT GLUCOSE POCT, B Routine 10/14/2021 1:20 Results f or PM CDT this procedure are in the results section. GLUCOSE POCT, B Routine 10/14/2021 9:16 Results f or AM CDT this procedure are in the results section. RENAL FUNCTION Routine 10/14/2021 4:47 Results fo r PANEL, S AM CDT this procedure are in the results section. CBC WITH Routine 10/14/2021 4:47 Results for DIFFERENTIAL, B AM CDT this procedu re are in the results section. GLUCOSE POCT, B Routine 10/14/2021 1:26 Results f or AM CDT this procedure are in the results section. GLUCOSE POCT, B Routine 10/13/2021 10:04 Results for PM CDT this procedure are in the results section. (1, 3) [id number] Routine 10/13/2021 6:26 Resu lts for (FUNGITELL), S PM CDT this procedur e are in the results section. CRYPTOCOCCUS AG Routine 10/13/2021 6:26 Results f or SCREEN W/TITER PM CDT this procedur e are in the results section. FUNGAL/TB CULTURE Routine 10/13/2021 6:26 Results for SPECIAL BLOOD PM CDT this procedure are in the results section. LACTATE Routine 10/13/2021 6:26 Results for DEHYDROGENASE (LD), PM CDT this pro cedure S are in the results section. HISTOPLASMA AG, Routine 10/13/2021 6:09 Results f or QUANT EIA, U PM CDT this procedure are in the results section. BLASTOMYCES AG, Routine 10/13/2021 6:09 Results f or QUANT EIA, URINE PM CDT this proced ure are in the results section. GLUCOSE POCT, B Routine 10/13/2021 5:05 Results f or PM CDT this procedure are in the results section. BACTERIAL CULTURE, Routine 10/13/2021 2:01 Result s for AEROBIC + SUSC, RESP PM CDT this pr ocedure are in the results section. FUNGAL SMEAR Routine 10/13/2021 2:01 Results for PM CDT this procedure are in the results section. GRAM STAIN Routine 10/13/2021 2:01 Results for PM CDT this procedure are in the results section. FUNGAL CULTURE, Routine 10/13/2021 2:01 Results f or ROUTINE PM CDT this procedure are in the results section. GLUCOSE POCT, B Routine 10/13/2021 11:57 Results for AM CDT this procedure are in the results section. MRSA CULTURE Routine 10/13/2021 10:49 Results for AM CDT this procedure are in the results section. GLUCOSE POCT, B Routine 10/13/2021 9:28 Results f or AM CDT this procedure are in the results section. TACROLIMUS LEVEL, B Timed 10/13/2021 8:50 Resul ts for AM CDT this procedure are in the results section. HEMOQUANT, F Routine 10/13/2021 8:17 Results for AM CDT this procedure are in the results section. TACROLIMUS LEVEL, B Timed 10/13/2021 8:16 Resul ts for AM CDT this procedure are in the results section. GLUCOSE POCT, B Routine 10/13/2021 8:12 Results f or AM CDT this procedure are in the results section. SPSMA RESULT Routine 10/13/2021 5:19 Results for AM CDT this procedure are in the results section. CBC WITH Routine 10/13/2021 5:19 Results for DIFFERENTIAL, B AM CDT this procedu re are in the results section. HEMOGLOBIN A1C, B Routine 10/13/2021 5:19 Results for AM CDT this procedure are in the results section. FOLATE, S Routine 10/13/2021 5:19 Results for AM CDT this procedure are in the results section. VITAMIN B12 ASSAY, S Routine 10/13/2021 5:19 Resu lts for AM CDT this procedure are in the results section. COMPREHENSIVE Routine 10/13/2021 5:19 Results for METABOLIC PANEL, S/P AM CDT this pr ocedure are in the results section. BLASTOMYCES AB, EIA Routine 10/13/2021 5:15 Resul ts for AM CDT this procedure are in the results section. HISTOPLASMA AB Routine 10/13/2021 5:15 Results fo r AM CDT this procedure are in the results section. ASPERGILLUS Routine 10/13/2021 5:15 Results for FUMIGATUS, IGG, S AM CDT this proce dure ABS, S are in the results section. GLUCOSE POCT, B Routine 10/13/2021 2:12 Results f or AM CDT this procedure are in the results section. GLUCOSE POCT, B Routine 10/13/2021 12:48 Results for AM CDT this procedure are in the results section. RESPIRATORY PANEL, Routine 10/12/2021 10:37 Resul ts for PCR, TRAFFIC SAFETY 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 PM CDT this procedure are in the results section. BACTERIAL CULTURE, Routine 10/12/2021 10:37 Resul ts for AEROBIC + SUSC, RESP PM CDT this pr ocedure are in the results section. GRAM STAIN Routine 10/12/2021 10:37 Results for PM CDT this procedure are in the results section. CT CHEST WITHOUT IV RAD - Semiurgent 10/12/2021 7:19 R esults for CONTRAST (Fast; most ED PM CDT this procedur e patients; some are in the inpatients) results section. GLUCOSE POCT, B Routine 10/12/2021 6:15 Results f or PM CDT this procedure are in the results section. GLUCOSE POCT, B Timed 10/12/2021 5:11 Results f or PM CDT this procedure are in the results section. GLUCOSE POCT, B Routine 10/12/2021 5:09 Results f or PM CDT this procedure are in the results section. VBG & LYTES CG8+, Routine 10/12/2021 4:12 Results for POCT, B PM CDT this procedure are in the results section. BLOOD GAS, POCT, B STAT 10/12/2021 4:11 Result s for PM CDT this procedure are in the results section. BETA-HYDROXYBUTYRATE STAT 10/12/2021 4:11 Resu lts for , S PM CDT this procedure are in the results section. BACTERIA / MARRY STAT 10/12/2021 2:56 Result s for CULTURE, BLOOD PM CDT this procedur e are in the results section. LACTATE, POCT, B STAT 10/12/2021 2:52 Results for PM CDT this procedure are in the results section. HEPATIC FUNCTION STAT 10/12/2021 2:51 Results for PANEL, S PM CDT this procedure are in the results section. LACTATE, POCT, B Routine 10/12/2021 2:51 Results for PM CDT this procedure are in the results section. CBC WITH STAT 10/12/2021 2:51 Results for DIFFERENTIAL, B PM CDT this procedu re are in the results section. BASIC METABOLIC STAT 10/12/2021 2:51 Results f or PANEL, S/P PM CDT this procedure are in the results section. BACTERIA / MARRY STAT 10/12/2021 2:50 Result s for CULTURE, BLOOD PM CDT this procedur e are in the results section. DX CHEST AP OR PA RAD - Semiurgent 10/12/2021 2:36 Res ults for AND LATERAL 2 VIEWS (Fast; most ED PM CDT this p rocedure patients; some are in the inpatients) results section. IFLU A, B, SARS STAT 10/12/2021 1:55 Results f or COV-2, PCR, RAPID,V PM CDT this pro cedure are in the results section. ECG STAT 10/12/2021 1:41 Results for PM CDT this procedure are in the results section. documented in this encounter Results (ABNORMAL) Glucose, POCT (10/16/2021 3:39 PM CDT) Analysis Performed At Patho logist Time Signature Glucose, POCT, 199 (H) 70 - 140 10/16/2021 PCLX B mg/dL 3:41 PM CDT Site Capillary 10/16/2021 PCLX 3:41 PM CDT Last Intake > 4 hours 10/16/2021 PCLX 3:41 PM CDT Specimen Anatomical Collection Method Collection Time Receive d Time (Source) Location / / Volume Laterality Blood 10/16/2021 3:39 PM 3:42 CDT PM CDT Unknown Provider LAB POCT ORDERABLES-MANUAL Performing Organization Address City/State/ZIP Code Phon e Number POC [facility] [address] [place] [address] [facility] [place] [address] [place] [facility] [address] IR Dialysis / High Flow Catheter Removal (10/16/2021 3:14 PM CDT) Anatomical Region Laterality Modality Body, Vascular Interventional RST LOS, Vascular N/A X-Ray Angiography Interventional ARZ LOS, Vascular Interventional FLA LOS Specimen (Source) Anatomical Collection Method Collection Time Re ceived Time Location / / Volume Laterality 10/17/2021 10:32 AM CDT Impressions 10/17/2021 10:35 AM CDT Successful removal of right internal jugular vein tunneled dialysis catheter NR Narrative 10/17/2021 10:35 AM CDT EXAM: IR DIALYSIS / HIGH FLOW CATHETER REMOVAL CLINICAL HISTORY: 66-year-old male with significant history of right internal jugular vein tunneled dialysis catheter placement on for hemodialysis access. He now has a working fistula and primary service is requesting removal of the catheter. TECHNIQUE: Patient was placed supine, re cumbent in the hospital bed. Previous catheter dressing was removed. Right upper neck and chest were prepped and draped in standard sterile fashion. 1 percent lidocaine was injected along the cathete r tract for local anesthetic. Retention suture was removed. Catheter cuff was gently explanted using blunt forceps and curved mosquito. Manual pressure was applied at the catheter insertion and ve notomy sites to achieve hemostasis. New sterile dressing was applied at the catheter insertion site. Dressing to remain in place for 48 hours after which time the patient may shower. Avoid submerging the puncture site for 7 to 10 days to allow for complete healing. PREPROCEDURE: Patient evaluated bedside. Identity confirmed via name and birthdate. Allergies, medications, clinical history were revie wed. Patient was deemed appropriate for the procedure. Risks, benefits, alternatives to the pro cedure were discussed. Patient wished to proceed with removal. Consent signed, up-to-date, kodak ilable in electronic medical records. Procedure Note Mayra Infante P.A.-C., M.S. - 10/17 EXAM: IR DIALYSIS / HIGH FLOW CATHETER R EMOVAL CLINICAL HISTORY: 66-year-old male with significant history of right internal jugular vein tunneled dialysis catheter placement on for hemodialysis access. He now has a working fistula and primary service is requesting removal of the catheter. TECHNIQUE: Patient was placed supine, re cumbent in the hospital bed. Previous catheter dressing was removed. Right upper neck and chest were prepped and draped in standard sterile fashion. 1 percent lidocaine was injected along the cathete r tract for local anesthetic. Retention suture was removed. Catheter cuff was gently explanted using blunt forceps and curved mosquito. Manual pressure was applied at the catheter insertion and ve notomy sites to achieve hemostasis. New sterile dressing was applied at the catheter insertion site. Dressing to remain in place for 48 hours after which time the patient may shower. Avoid submerging the puncture site for 7 to 10 days to allow for complete healing. PREPROCEDURE: Patient evaluated bedside. Identity confirmed via name and birthdate. Allergies, medications, clinical history were revie wed. Patient was deemed appropriate for the procedure. Risks, benefits, alternatives to the pro cedure were discussed. Patient wished to proceed with removal. Consent signed, up-to-date, kodak ilable in electronic medical records. IMPRESSION: Successful removal of right internal jug ular vein tunneled dialysis catheter NR Meghann Ansari M.D., Ph.D. IMG IR PROCEDURES Glucose, POCT (10/16/2021 5:54 AM CDT) Analysis Performed At [facility] Time Signature Glucose, POCT, 99 70 - 140 10/16/2021 PCLX B mg/dL 5:56 AM CDT Site Capillary 10/16/2021 PCLX 5:56 AM CDT Specimen Anatomical Collection Method Collection Time Receive d Time (Source) Location / / Volume Laterality Blood 10/16/2021 5:54 AM 2 5:56 CDT AM CDT Unknown Provider LAB POCT ORDERABLES-MANUAL Performing Organization Address City/[facility] Phon e Number POC [facility] [address] [place] [address] [place] [address] [place] [facility] [address] [facility] Glucose, POCT (10/16/2021 4:25 AM CDT) [facility] Signature Glucose, POCT, 102 70 - 140 10/16/2021 PCLX B mg/dL 4:27 AM CDT Site Capillary 10/16/2021 PCLX 4:27 AM CDT Last Intake > 4 hours 10/16/2021 PCLX 4:27 AM CDT Specimen Anatomical Collection Method Collection Time Receive d Time (Source) Location / / Volume Laterality Blood 10/16/2021 4:25 AM 2 4:28 CDT AM CDT Unknown Provider LAB POCT ORDERABLES-MANUAL Performing Organization Address [facility] Phon e Number POC [facility] [address] [place] [address] [place] [address] [place] [facility] [address] [facility] Glucose, POCT (10/16/2021 2:12 AM CDT) Analysis Performed At [facility] Time Signature Glucose, POCT, 119 70 - 140 10/16/2021 PCLX B mg/dL 2:14 AM CDT Site Capillary 10/16/2021 PCLX 2:14 AM CDT Last Intake > 4 hours 10/16/2021 PCLX 2:14 AM CDT Specimen Anatomical Collection Method Collection Time Receive d Time (Source) Location / / Volume Laterality Blood 10/16/2021 2:12 AM 2 2:15 CDT AM CDT Unknown Provider LAB POCT ORDERABLES-MANUAL Performing Organization Address City/[facility]/ZIP Code Phon e Number POC [facility] [address] [place] [address] [place] [address] [place] [facility] [address] [facility] Glucose, POCT (10/16/2021 12:31 AM CDT) Analysis Performed At Patho logist Time Signature Glucose, POCT, 136 70 - 140 10/16/2021 PCLX B mg/dL 12:33 AM CDT Site Capillary 10/16/2021 PCLX 12:33 AM CDT Last Intake > 4 hours 10/16/2021 PCLX 12:33 AM CDT Specimen Anatomical Collection Method Collection Time Receive d Time (Source) Location / / Volume Laterality Blood 10/16/2021 12:31 10/16/2021 AM CDT 12:33 AM CDT Unknown Provider LAB POCT ORDERABLES-MANUAL Performing Organization Address City/[facility] Phon e Number POC [facility] [address] [place] [address] [place] [address] [place] [facility] [address] [facility] (ABNORMAL) Glucose, POCT (10/15/2021 8:15 PM CDT) Analysis Performed At Patho logist Time Signature Glucose, POCT, 351 (H) 70 - 140 10/15/2021 PCLX B mg/dL 8:18 PM CDT Site Capillary 10/15/2021 PCLX 8:18 PM CDT Last Intake 2-3 hours 10/15/2021 PCLX 8:18 PM CDT Specimen Anatomical Collection Method Collection Time Receive d Time (Source) Location / / Volume Laterality Blood 10/15/2021 8:15 PM 8:19 CDT PM CDT Unknown Provider LAB POCT ORDERABLES-MANUAL Performing Organization Address City/[facility] Phon e Number POC [facility] [address] [place] [address] [place] [address] [place] [facility] [address] [facility] (ABNORMAL) Glucose, POCT (10/15/2021 5:24 PM CDT) Analysis Performed At Patho logist Time Signature Glucose, POCT, 194 (H) 70 - 140 10/15/2021 PCLX B mg/dL 5:26 PM CDT Site Capillary 10/15/2021 PCLX 5:26 PM CDT Last Intake 3-4 hours 10/15/2021 PCLX 5:26 PM CDT Specimen Anatomical Collection Method Collection Time Receive d Time (Source) Location / / Volume Laterality Blood 10/15/2021 5:24 PM 2 5:27 CDT PM CDT Unknown Provider LAB POCT ORDERABLES-MANUAL Performing Organization Address City/State/ZIP Code Phon e Number POC [facility] [address] [place] [address] [place] [address] [place] [facility] [address] (ABNORMAL) Glucose, POCT (10/15/2021 1:03 PM CDT) Analysis Performed At Patho logist Time Signature Glucose, POCT, 165 (H) 70 - 140 10/15/2021 PCLX B mg/dL 1:06 PM CDT Site Capillary 10/15/2021 PCLX 1:06 PM CDT Last Intake > 4 hours 10/15/2021 PCLX 1:06 PM CDT Specimen Anatomical Collection Method Collection Time Receive d Time (Source) Location / / Volume Laterality Blood 10/15/2021 1:03 PM 2 1:06 CDT PM CDT Unknown Provider LAB POCT ORDERABLES-MANUAL Performing Organization Address City/[facility] Phon e Number POC [facility] [address] [place] [address] [place] [address] [place] [facility] [address] (ABNORMAL) Glucose, POCT (10/15/2021 11:57 AM CDT) P athologist Signature Glucose, POCT, 219 (H) 70 - 140 10/15/2021 PCLX B mg/dL 11:59 AM CDT Specimen Anatomical Collection Method Collection Time Receive d Time (Source) Location / / Volume Laterality Blood 10/15/2021 11:57 10/15/2021 AM CDT 11:59 AM CDT Unknown Provider LAB POCT ORDERABLES-MANUAL Performing Organization Address City/State/ZIP Code Phon e Number POC [facility] [address] [place] [address] PCLX [facility] [place] [address] [place] [facility] [address] [facility] (ABNORMAL) Tacrolimus, B (10/15/2021 8:08 AM CDT) P athologist Signature Tacrolimus, B 2.0 (L) 5.0-15.0 10/15/2021 SDSC (Trough) 1:38 PM CDT ng/mL Comment: ----ADDITIONAL INFORMATION---- Target steady-state trough concentration s vary depending on the type of transplant, concomitant immunosuppressio n, clinical/institutional protocols, and time post-transplant. Results should be interpreted in conjunction with this clinical information and any physic al signs/symptoms of rejection/toxicity. Testing performed by Liquid Chromatograp hy-Tandem Mass Spectrometry (LC-MS/MS). This test was developed and its performa nce characteristics determined by [facility] in a manner consistent with CLIA requirements. This test has not been cleared or approved by the U.S. Mer d and Drug Administration. Specimen Anatomical Collection Method Collection Time Receive d Time (Source) Location / / Volume Laterality Blood (Blood, 10/15/2021 8:08 AM 10/16/19 9:59 Venous) CDT AM CDT Julian Sanchez M.D. LAB BLOOD NON ADD-ON Performing Organization Address City/State/ZIP Code Phon e Number [facility] [address] [place], [place] [address] [facility] [place] [address] Laboratory Medicine and Pathology [address] [place] (ABNORMAL) Renal Function Panel (10/15/2021 8:08 AM CDT) Analysis Performed At Patho logist Time Signature Potassium, S 3.8 3.6 - 5.2 10/15/2021 DTL mmol/L 9:06 AM CDT Sodium, S 130 (L) 135 - 145 10/15/2021 DTL mmol/L 9:06 AM CDT Chloride, S 96 (L) 98 - 107 10/15/2021 DTL mmol/L 9:06 AM CDT Bicarbonate, S 20 (L) 22 - 29 10/15/2021 DTL mmol/L 9:06 AM CDT Anion Gap 14 7 - 15 10/15/2021 DTL 9:06 AM CDT BUN (Blood Urea 63 (H) 8 - 24 10/15/2021 DTL Nitrogen), S mg/dL 9:06 AM CDT Creatinine 4.41 (H) 0.74 - 10/15/2021 DTL 1.35 mg/dL 9:06 AM CDT eGFR-Non <15 (L) >=60 10/15/2021 DTL Black/ mL/min/BSA 9:06 AM CDT [place] Comment: ----ADDITIONAL INFORMATION---- Estimated GFR calculated using the 2009 CKD_EPI creatinine equation. eGFR-Black/ <15 (L) >=60 mL/min/BSA 2021 9:06 AM CDT DTL Comment: ----ADDITIONAL INFORMATION---- Estimated GFR calculated using the 2009 CKD_EPI creatinine equation. Calcium, Total, S 8.5 (L) 8.8 - 10.2 mg/dL 10/15/2021 9:06 AM CDT DTL Glucose, S 131 70 - 140 mg/dL 10/15/2021 9:06 AM CDT D TL Albumin, S 3.7 3.5 - 5.0 g/dL 10/15/2021 9:06 AM CDT D TL Phosphorus (Inorganic), S 4.5 2.5 - 4.5 mg/dL 10/16/19 9:06 AM CDT DTL Specimen Anatomical Collection Method Collection Time Receive d Time (Source) Location / / Volume Laterality Blood (Blood, 10/15/2021 8:08 AM 10/16/19 8:48 Venous) CDT AM CDT Julian Sanchez M.D. LAB BLOOD ADD-ON Performing Organization Address City/State/ZIP Code Phon e Number [facility] - [address] [place], [place] [address] [facility] [place] [address] [facility] [address] (ABNORMAL) CBC with Differential, Blood (10/15/2021 8:08 AM CDT) [facility] gist Method Time Signature Hemoglobin 8.2 (L) 13.2 - 10/15/2021 DHPM 16.6 g/dL 9:19 AM CDT Hematocrit 24.9 (L) 38.3 - 10/15/2021 DHPM 48.6 % 9:19 AM CDT Erythrocytes 2.54 (L) 4.35 - 10/15/2021 DHPM 5.65 9:19 AM CDT x10(12)/L MCV 98.0 (H) 78.2 - 10/15/2021 DHPM 97.9 fL 9:19 AM CDT RBC Distrib Width 14.6 (H) 11.8 - 10/15/2021 DHPM 14.5 % 9:19 AM CDT Platelet Count 181 135 - 317 10/15/2021 DHPM x10(9)/L 9:19 AM CDT Leukocytes 3.9 3.4 - 9.6 10/15/2021 DHPM x10(9)/L 9:19 AM CDT Neutrophils 2.81 1.56 - 10/15/2021 DHPM 6.45 9:46 AM CDT x10(9)/L Comment: Rechecked Lymphocytes 0.72 (L) 0.95 - 3.07 x10(9)/L 10/15/2021 9:46 A M CDT DHPM Monocytes 0.37 0.26 - 0.81 x10(9)/L 10/15/2021 9:46 AM CDT DHPM Eosinophils 0.03 0.03 - 0.48 x10(9)/L 10/15/2021 9:46 A M CDT DHPM Basophils <0.03 0.01 - 0.08 x10(9)/L 10/15/2021 9:46 AM CDT DHPM Specimen Anatomical Collection Method Collection Time Receive d Time (Source) Location / / Volume Laterality Blood (Blood, 10/15/2021 8:08 AM 10/16/19 8:32 Venous) CDT AM CDT Julian Sanchez M.D. LAB BLOOD ADD-ON Performing Organization Address City/State/ZIP Code Phon e Number [facility] - [address] [place], [place] [address] [place] [address] [facility] [address] Glucose, POCT (10/15/2021 7:39 AM CDT) Analysis Performed At Patho logist Time Signature Glucose, POCT, 91 70 - 140 10/15/2021 PCLX B mg/dL 7:44 AM CDT Site Capillary 10/15/2021 PCLX 7:44 AM CDT Last Intake > 4 hours 10/15/2021 PCLX 7:44 AM CDT Specimen Anatomical Collection Method Collection Time Receive d Time (Source) Location / / Volume Laterality Blood 10/15/2021 7:39 AM 7:44 CDT AM CDT Unknown Provider LAB POCT ORDERABLES-MANUAL Performing Organization Address City/[facility]/ZIP Code Phon e Number POC [facility] [address] [place] [address] PCLX [facility] [place] [address] [facility] [address] [facility] Magnesium (10/15/2021 4:39 AM CDT) P athologist Signature Magnesium, S 2.3 1.7 - 2.3 10/15/2021 DTL mg/dL 5:51 AM CDT Specimen Anatomical Collection Method Collection Time Receive d Time (Source) Location / / Volume Laterality Blood (Blood, 10/15/2021 4:39 AM 10/16/19 5:40 Venous) CDT AM CDT Julian Sanchez M.D. LAB BLOOD ADD-ON Performing Organization Address City/[facility] Code Phon e Number [facility] - [address] [place], [place] [address] [facility] [place] [address] [facility] [address] [facility] (ABNORMAL) Glucose, POCT (10/14/2021 11:19 PM CDT) Analysis Performed At Patho logist Time Signature Glucose, POCT, 157 (H) 70 - 140 10/14/2021 PCLX B mg/dL 11:21 PM CDT Site Capillary 10/14/2021 PCLX 11:21 PM CDT Last Intake > 4 hours 10/14/2021 PCLX 11:21 PM CDT Specimen Anatomical Collection Method Collection Time Receive d Time (Source) Location / / Volume Laterality Blood 10/14/2021 11:19 10/14/2021 PM CDT 11:22 PM CDT Unknown Provider LAB POCT ORDERABLES-MANUAL Performing Organization Address City/State/ZIP Code Phon e Number POC [facility] [address] [place] [address] [place] [address] [place] [facility] [address] (ABNORMAL) Glucose, POCT (10/14/2021 5:02 PM CDT) P athologist Signature Glucose, POCT, 319 (H) 70 - 140 10/14/2021 PCLX B mg/dL 5:11 PM CDT Specimen Anatomical Collection Method Collection Time Receive d Time (Source) Location / / Volume Laterality Blood 10/14/2021 5:02 PM 2 5:12 CDT PM CDT Unknown Provider LAB POCT ORDERABLES-MANUAL Performing Organization Address City/[facility] Phon e Number POC [facility] [address] [place] [address] [place] [address] [place] [facility] [address] Glucose, POCT (10/14/2021 1:20 PM CDT) P athologist Signature Glucose, POCT, 137 70 - 140 10/14/2021 PCLX B mg/dL 1:31 PM CDT Specimen Anatomical Collection Method Collection Time Receive d Time (Source) Location / / Volume Laterality Blood 10/14/2021 1:20 PM 2 1:31 CDT PM CDT Unknown Provider LAB POCT ORDERABLES-MANUAL Performing Organization Address City/[facility] Phon e Number POC [facility] [address] [place] [address] [place] [address] [place] [facility] [address] (ABNORMAL) Glucose, POCT (10/14/2021 9:16 AM CDT) P athologist Signature Glucose, POCT, 170 (H) 70 - 140 10/14/2021 PCLX B mg/dL 10:04 AM CDT Specimen Anatomical Collection Method Collection Time Receive d Time (Source) Location / / Volume Laterality Blood 10/14/2021 9:16 AM 2 CDT 10:04 AM CDT Unknown Provider LAB POCT ORDERABLES-MANUAL Performing Organization Address City/[facility]/ZIP Code Phon e Number POC [facility] [address] [place] [address] PCLX [facility] [place] [address] [place] [facility] [address] [facility] (ABNORMAL) Renal Function Panel (10/14/2021 4:47 AM CDT) Analysis Performed At Patho logist Time Signature Potassium, S 4.0 3.6 - 5.2 10/14/2021 DTL mmol/L 5:53 AM CDT Sodium, S 127 (L) 135 - 145 10/14/2021 DTL mmol/L 5:53 AM CDT Chloride, S 92 (L) 98 - 107 10/14/2021 DTL mmol/L 5:53 AM CDT Bicarbonate, S 19 (L) 22 - 29 10/14/2021 DTL mmol/L 5:53 AM CDT Anion Gap 16 (H) 7 - 15 10/14/2021 DTL 5:53 AM CDT BUN (Blood Urea 58 (H) 8 - 24 10/14/2021 DTL Nitrogen), S mg/dL 5:53 AM CDT Creatinine 4.13 (H) 0.74 - 10/14/2021 DTL 1.35 mg/dL 5:53 AM CDT eGFR-Non <15 (L) >=60 10/14/2021 DTL Black/ mL/min/BSA 5:53 AM CDT [place] Comment: ----ADDITIONAL INFORMATION---- Estimated GFR calculated using the 2009 CKD_EPI creatinine equation. eGFR-Black/ 16 (L) >=60 mL/min/BSA 2021 5:53 AM CDT DTL Comment: ----ADDITIONAL INFORMATION---- Estimated GFR calculated using the 2009 CKD_EPI creatinine equation. Calcium, Total, S 8.3 (L) 8.8 - 10.2 mg/dL 10/14/2021 5:53 AM CDT DTL Glucose, S 228 (H) 70 - 140 mg/dL 10/14/2021 5:53 AM CDT D TL Albumin, S 3.5 3.5 - 5.0 g/dL 10/14/2021 5:53 AM CDT D TL Phosphorus (Inorganic), S 4.6 (H) 2.5 - 4.5 mg/dL 10/15/19 5:53 AM CDT DTL Specimen Anatomical Collection Method Collection Time Receive d Time (Source) Location / / Volume Laterality Blood (Blood, 10/14/2021 4:47 AM 10/15/19 5:38 Venous) CDT AM CDT Julian Sanchez M.D. LAB BLOOD ADD-ON Performing Organization Address City/State/ZIP Code Phon e Number [facility] - [address] [place] [address] [facility] [place] [address] [facility] 200 [facility] (ABNORMAL) CBC with Differential, Blood (10/14/2021 4:47 AM CDT) [facility] gist Method Time Signature Hemoglobin 7.9 (L) 13.2 - 10/14/2021 DTL 16.6 g/dL 5:36 AM CDT Hematocrit 24.1 (L) 38.3 - 10/14/2021 DTL 48.6 % 5:36 AM CDT Erythrocytes 2.50 (L) 4.35 - 10/14/2021 DTL 5.65 5:36 AM CDT x10(12)/L MCV 96.4 78.2 - 10/14/2021 DTL 97.9 fL 5:36 AM CDT RBC Distrib Width 14.5 11.8 - 10/14/2021 DTL 14.5 % 5:36 AM CDT Platelet Count 178 135 - 317 10/14/2021 DTL x10(9)/L 5:36 AM CDT Leukocytes 4.4 3.4 - 9.6 10/14/2021 DTL x10(9)/L 5:36 AM CDT Neutrophils 3.21 1.56 - 10/14/2021 DTL 6.45 6:38 AM CDT x10(9)/L Comment: Rechecked Lymphocytes 0.74 (L) 0.95 - 3.07 x10(9)/L 10/14/2021 6:38 A M CDT DTL Monocytes 0.38 0.26 - 0.81 x10(9)/L 10/14/2021 6:38 AM CDT DTL Eosinophils <0.03 0.03 - 0.48 x10(9)/L 10/14/2021 6:38 A M CDT DTL Basophils <0.03 0.01 - 0.08 x10(9)/L 10/14/2021 6:38 AM CDT DTL Specimen Anatomical Collection Method Collection Time Receive d Time (Source) Location / / Volume Laterality Blood (Blood, 10/14/2021 4:47 AM 10/15/19 5:27 Venous) CDT AM CDT Julian Sanchez M.D. LAB BLOOD ADD-ON Performing Organization Address City/[facility] Code Phon e Number [facility] - [address] [place], [place] [address] [facility] [place] [address] [facility] [address] [facility] (ABNORMAL) Glucose, POCT (10/14/2021 1:26 AM CDT) Analysis Performed At Patho logist Time Signature Glucose, POCT, 261 (H) 70 - 140 10/14/2021 PCLX B mg/dL 1:29 AM CDT Site Capillary 10/14/2021 PCLX 1:29 AM CDT Last Intake > 4 hours 10/14/2021 PCLX 1:29 AM CDT Specimen Anatomical Collection Method Collection Time Receive d Time (Source) Location / / Volume Laterality Blood 10/14/2021 1:26 AM 1:29 CDT AM CDT Unknown Provider LAB POCT ORDERABLES-MANUAL Performing Organization Address City/[facility] Phon e Number [facility] [address] [place] [address] [facility] [place] [address] [place] [facility] [address] [facility] (ABNORMAL) Glucose, POCT (10/13/2021 10:04 PM CDT) Analysis Performed At Patho logist Time Signature Glucose, POCT, 318 (H) 70 - 140 10/13/2021 PCLX B mg/dL 10:17 PM CDT Site Capillary 10/13/2021 PCLX 10:17 PM CDT Last Intake 3-4 hours 10/13/2021 PCLX 10:17 PM CDT Specimen Anatomical Collection Method Collection Time Receive d Time (Source) Location / / Volume Laterality Blood 10/13/2021 10:04 10/13/2021 PM CDT 10:18 PM CDT Unknown Provider LAB POCT ORDERABLES-MANUAL Performing Organization Address City/[facility]/ZIP Code Phon e Number [facility] [address] [place] [address] [facility] [place] [address] [facility] [address] [facility] Cryptococcus Antigen Screen with Titer (10/13/2021 6:26 PM CDT) [facility] Method Time [facility] Cryptococcus Ag Negative Negative 10/14/2021 [facility] Screen w/Titer, 2:31 PM CDT S Comment: A single negative result does not exclud e the diagnosis of cryptococcosis. ?? Repeat testing on a new sample if clinic ally indicated. ----ADDITIONAL INFORMATION---- This assay was performed using the FDA-c leared IMMIntcomex Cryptococcus Antigen Lateral Flow Assay. Specimen Anatomical Collection Method Collection Time Receive d Time (Source) Location / / Volume Laterality Blood (Blood, 10/13/2021 6:26 PM 10/15/19 22 Venous) CDT 12:15 PM CDT Julian Sanchez M.D. LAB MICROBIOLOGY - BLOOD ORD ERABLES Performing Organization Address City/State/ZIP Code Phon e Number [facility] [address] [place], [place] [address] [facility] [place] [address] Laboratory Medicine and Pathology [address] [place] (ABNORMAL) LD (Lactate Dehydrogenase) (10/13/2021 6:26 PM CDT) [facility] Trudy 281 (H) 122 - 222 10/13/2021 DT LD U/L 7:31 PM CDT Specimen Anatomical Collection Method Collection Time Receive d Time (Source) Location / / Volume Laterality Blood (Blood, 10/13/2021 6:26 PM 10/14/19 22 7:08 Venous) CDT PM CDT Julian Sanchez M.D. LAB BLOOD NON ADD-ON Performing Organization Address City/[facility]/ZIP Code Phon e Number [facility] - [address] [place], [place] [address] [facility] [place] [address] [facility] [address] [facility] (1, 3) Qnsi-M-Faosqd (Fungitell), Serum (10/13/2021 6:26 PM CDT) [facility] Method Time Signature (1, 3) <31 <60 pg/mL 10/16/2021 [facility] Apxr-B-Xivcsv, pg/mL 12:19 PM CDT Quantitative (1, 3) Negative Negative 10/16/2021 [facility] Bixw-W-Rifzpk, 12:19 PM CDT Qualitative Comment: No (1, 3) Bnla-N-Tfgraz detected. ?? This assay does not detect certain fungi , including Cryptococcus species, which produce very low levels of (1, 3) Yesr-V-Ardxln (BDG) and the Mucorales (e.g., Lichthemia, Mucor and Rhizopus), which are not known to produce BDG. Additionally, the yeast phase of Blastom yces dermatitidis produces little BDG and may not be detected by this assay. ----ADDITIONAL INFORMATION---- This assay was performed using the FDA-c [facility] Fungitell Assay ([facility]), a [facility] HARRIET based on modification of the Limulus Amebocyte Lysate pathway. Specimen Anatomical Collection Method Collection Time Receive d Time (Source) Location / / Volume Laterality Blood (Blood, 10/13/2021 6:26 PM 10/15/19 22 Venous) CDT 12:15 PM CDT Julian Sanchez M.D. LAB MICROBIOLOGY - BLOOD ORD ERABLES Performing Organization Address City/State/ZIP Code Phon e Number [facility] [address] [place] [address] [place] [address] [place] [address] Laboratory Medicine and Pathology [address] [place] Fungal / TB Culture, Special, Blood (10/13/2021 6:26 PM CDT) [facility] Method Time Signature Fungal/TB No growth 11/25/2021 DTL Culture, after 42 1:05 AM CDT Special, Blood days of incubation. Specimen (Source) Anatomical Collection Method Collection Time Re ceived Time Location / / Volume Laterality Blood (Blood, 10/13/2021 6:26 10/13/2021 7:09 Peripheral Draw) PM CDT PM CDT Comment: Specimen Source Site: Blood [facility] 11/25/2021 1:05 AM CDT Received Isolator and two Bactec Myco F bottles Specimen Information: Specimen ID: [id number] Specimen Source: Blood, Peripheral Draw Specimen Comment: Specimen Source Site: Blood Specimen Collection Start Date: 10/14/19 ??6:27 PM Specimen Received Date: 10/13/2021 ??7:0 9 PM Specimen ID: [id number] Specimen Source: Blood, Peripheral Draw Specimen Comment: Specimen Source Site: Blood Specimen Collection Start Date: 10/14/19 ??6:26 PM Specimen Received Date: 10/13/2021 ??7:0 9 PM Specimen ID: [id number] Specimen Source: Blood, Peripheral Draw Specimen Comment: Specimen Source Site: Blood Specimen Collection Start Date: 10/14/19 ??6:27 PM Specimen Received Date: 10/13/2021 ??7:0 9 PM Julian Sanchez M.D. LAB MICROBIOLOGY - GENERAL O RDERABLES Performing Organization Address City/State/ZIP Code Phon e Number [facility] - [address] [place] [address] [facility] [place] [address] [address] Blastomyces Ag, Quant EIA, Urine (10/13/2021 6:09 PM CDT) [facility] Method Time Signature Blastomyces Ag Not Detected Not Detected 10/16/2021 [facility] Result 12:38 PM CDT Comment: No Blastomyces antigen detected. ?? False negative results may occur. ??Repe at testing on a new specimen should be considered if cli nically indicated. ?? Blastomyces Ag Value Not Detected ng/mL 10/16/2021 12:38 PM CDT [facility] Comment: ----ADDITIONAL INFORMATION---- This test was developed and its performa nce characteristics determined by [facility] in a manner co nsistent with CLIA requirements. This test has not bee n cleared or approved by the U.S. Food and Drug Admin istration. Specimen Anatomical Collection Method Collection Time Receive d Time (Source) Location / / Volume Laterality Urine (Urine, 10/13/2021 6:09 PM 04/25/20 22 6:37 Midstream) CDT AM CDT Julian Sanchez M.D. LAB MICROBIOLOGY - GENERAL O RDERABLES Performing Organization Address City/[facility]/ZIP Code Phon e Number [facility] [address] [place], [place] [address] [facility] [facility] [place] [address] Laboratory Medicine and Pathology [address] [place] [address] Dr. MURILLO Histoplasma Ag, Quant EIA, Urine (10/13/2021 6:09 PM CDT) [facility] gist Method Time Signature Histoplasma Ag Not Detected Not Detected 10/15/2021 [facility] Result 7:12 PM CDT Comment: No Histoplasma antigen detected. ?? False negative results may occur. ??Repe at testing on a new specimen should be considered if cli nically indicated. ?? Histoplasma Ag Value Not Detected ng/mL 10/15/2021 7:12 PM CDT [facility] Comment: ----ADDITIONAL INFORMATION---- This test has been modified from the man ufacturer's instructions. Its performance characteri stics were determined by [facility] in a manner co nsistent with CLIA requirements. This test has not bee n cleared or approved by the U.S. Food and Drug Admin istration. Specimen Anatomical Collection Method Collection Time Receive d Time (Source) Location / / Volume Laterality Urine (Urine, 10/13/2021 6:09 PM 10/16/19 22 7:06 Midstream) CDT AM CDT Julian Sanchez M.D. LAB URINE ORDERABLES Performing Organization Address City/[facility] Code Phon e Number [facility] [address] [place], [place] [address] [facility] [place] [address] Laboratory Medicine and Pathology [address] [place] [address] Dr. MURILLO (ABNORMAL) Glucose, POCT (10/13/2021 5:05 PM CDT) Analysis Performed At Path logist Time Signature Glucose, POCT, 303 (H) 70 - 140 10/13/2021 PCLX B mg/dL 5:19 PM CDT Site Capillary 10/13/2021 PCLX 5:19 PM CDT Specimen Anatomical Collection Method Collection Time Receive d Time (Source) Location / / Volume Laterality Blood 10/13/2021 5:05 PM 5:19 CDT PM CDT Unknown Provider LAB POCT ORDERABLES-MANUAL Performing Organization Address City/[facility]/ZIP Code Phon e Number [facility] [address] [place] [address] [facility] [place] [address] [facility] [address] [facility] Fungal Culture, Routine (10/13/2021 2:01 PM CDT) [facility] Method Time Signature Fungal No growth 11/07/2021 DTL Culture, after 24 1:01 AM CDT Routine days of incubation. Specimen Anatomical Collection Method Collection Time Receive d Time (Source) Location / / Volume Laterality Sputum (Sputum) 10/13/2021 2:01 PM 2021 2:59 CDT PM CDT Comment: Specimen Source Site: Sputum Julian Sanchez M.D. LAB MICROBIOLOGY - GENERAL O CAMERAKAJAL Performing Organization Address City/[facility]/ZIP Code Phon e Number [facility] - [address] [place], [place] [address] [facility] [place] [address] [facility] [address] [facility] Fungal Smear (10/13/2021 2:01 PM CDT) athologist Signature Fungal Smear Negative. 10/13/2021 DTL 8:10 PM CDT Specimen Anatomical Collection Method Collection Time Receive d Time (Source) Location / / Volume Laterality Sputum (Sputum) 10/13/2021 2:01 PM 2021 2:59 CDT PM CDT Comment: Specimen Source Site: Sputum Julian Sanchez M.D. LAB MICROBIOLOGY - GENERAL O RDERABLES Performing Organization Address City/[facility]/ZIP Code Phon e Number [facility] - [address] [place], [place] [address] [facility] [place] [address] (ABNORMAL) Bacterial Culture, Aerobic + Susc, Resp (10/13/2021 2:01 PM CDT) [facility] Method Time Signature Bacterial With usual 10/16/2021 DTL Culture, efrem (A) 1:11 PM CDT Aerobic, Resp Bacterial SERRATIA MARCESCENS 10/16/2021 DTL Culture, 2+ 1:11 PM CDT Aerobic, Resp (A) Comment: Susceptibilities performed on another sp angellan [id number] This organism may contain an inducible b eta-lactamase. Second- or third-generation cephalospori n monotherapy may result in the emergence of high-level resistance. Preferred empiric therapy, p ending antimicrobial susceptibility results, is cefepime, a f luoroquinolone, or a carbapenem, unless clinically contr aindicated. Specimen Anatomical Collection Method Collection Time Receive d Time (Source) Location / / Volume Laterality Sputum (Sputum) 10/13/2021 2:01 PM 2021 2:59 CDT PM CDT Comment: Specimen Source Site: Sputum Julian Sanchez M.D. LAB MICROBIOLOGY - GENERAL O GLADYS Performing Organization Address [facility] Phon e Number [facility] [address] Gram Stain (10/13/2021 2:01 PM CDT) Patholo gist Method Time Signature Gram Stain Mixed efrem. 10/13/2021 DTL White blood cells, Moderate. 6:59 PM CDT Epithelial cells, Few. Specimen Anatomical Collection Method Collection Time Receive d Time (Source) Location / / Volume Laterality Sputum (Sputum) 10/13/2021 2:01 PM 2021 2:59 CDT PM CDT Comment: Specimen Source Site: Sputum Julian Sanchez M.D. LAB MICROBIOLOGY - GENERAL O GLADYS Performing Organization Address City/[facility] Phon e Number [facility] [address] (ABNORMAL) Glucose, POCT (10/13/2021 11:57 AM CDT) Analysis Performed At Patho logist Time Signature Glucose, POCT, 240 (H) 70 - 140 10/13/2021 PCLX B mg/dL 11:59 AM CDT Site Capillary 10/13/2021 PCLX 11:59 AM CDT Last Intake 3-4 hours 10/13/2021 PCLX 11:59 AM CDT Specimen Anatomical Collection Method Collection Time Receive d Time (Source) Location / / Volume Laterality Blood 10/13/2021 11:57 10/13/2021 AM CDT 12:00 PM CDT Unknown Provider LAB POCT ORDERABLES-MANUAL Performing Organization Address City/[facility]/ZIP [facility] Phon e Number [facility] [address] [place] [address] [place] [address] [facility] [facility] [address] MRSA Culture (10/13/2021 10:49 AM CDT) Analysis Performed At Patho logist Time Signature MRSA Culture No growth 10/14/2021 DTL of MRSA 2:07 PM CDT Specimen Anatomical Collection Method Collection Time Receive d Time (Source) Location / / Volume Laterality Swab (Nares) 10/13/2021 10:49 10/13/2021 AM CDT 12:20 PM CDT Comment: Specimen Source Site: Swab Julian Sanchez M.D. LAB MICROBIOLOGY - GENERAL O RDERABLES Performing Organization Address City/[facility]/ZIP [facility] Phon e Number [facility] - [address] [place], [place] [address] [facility] [place] [address] [facility] [address] (ABNORMAL) Glucose, POCT (10/13/2021 9:28 AM CDT) Analysis Performed At Patho logist Time Signature Glucose, POCT, 296 (H) 70 - 140 10/13/2021 PCLX B mg/dL 9:31 AM CDT Site Capillary 10/13/2021 PCLX 9:31 AM CDT Last Intake 1-2 hours 10/13/2021 PCLX 9:31 AM CDT Specimen Anatomical Collection Method Collection Time Receive d Time (Source) Location / / Volume Laterality Blood 10/13/2021 9:28 AM 9:31 CDT AM CDT Unknown Provider LAB POCT ORDERABLES-MANUAL Performing Organization Address City/[facility]/ZIP [facility] Phon e Number [facility] [address] [place] [address] [place] [address] [facility] [address] (ABNORMAL) Tacrolimus, B (10/13/2021 8:50 AM CDT) athologist Signature Tacrolimus, B 2.7 (L) 5.0-15.0 10/13/2021 SDSC (Trough) 1:05 PM CDT ng/mL Comment: ----ADDITIONAL INFORMATION---- Target steady-state trough concentration s vary depending on the type of transplant, concomitant immunosuppressio n, clinical/institutional protocols, and time post-transplant. Results should be interpreted in conjunction with this clinical information and any physic al signs/symptoms of rejection/toxicity. Testing performed by Liquid Chromatograp hy-Tandem Mass Spectrometry (LC-MS/MS). This test was developed and its performa nce characteristics determined by [facility] in a manner consistent with CLIA requirements. This test has not been cleared or approved by the U.S. Mer d and Drug Administration. Specimen Anatomical Collection Method Collection Time Receive d Time (Source) Location / / Volume Laterality Blood (Blood, 10/13/2021 8:50 AM 10/14/19 Venous) CDT 10:23 AM CDT Trung Romero APRN, C.N.P. LAB BLOOD NON ADD-ON Performing Organization Address City/State/ZIP Code Phon e Number [facility] [address] [place], [place] [address] [place], [place] [address] [address] Laboratory Medicine and Pathology [address] [place] HemoQuant, Feces (10/13/2021 8:17 AM CDT) athologist Signature Hemoglobin, 0.6 <=2 mg Hb/g 10/13/2021 DTL Fecal 2:41 PM CDT Comment: ----ADDITIONAL INFORMATION---- This test was developed and its performa nce characteristics determined by [facility] in a manner consistent with CLIA requirements. This test has not been cleared or approved by the U.S. Mer d and Drug Administration. Specimen Anatomical Collection Method Collection Time Receive d Time (Source) Location / / Volume Laterality Stool (Stool) 10/13/2021 8:17 AM 10/14/19 22 9:07 CDT AM CDT Nelli Gloria APRN, C.N.P. LAB BODY FLUIDS AND STOOLS ORDERABLES Performing Organization Address City/[facility] Phon e Number [facility] - [address] [place], [place] [address] [place] [address] [facility] [address] (ABNORMAL) Tacrolimus, B (10/13/2021 8:16 AM CDT) P athologist Signature Tacrolimus, B 2.5 (L) 5.0-15.0 10/13/2021 [facility] (Trough) 4:12 PM CDT ng/mL Comment: ----ADDITIONAL INFORMATION---- Target steady-state trough concentration s vary depending on the type of transplant, concomitant immunosuppressio n, clinical/institutional protocols, and time post-transplant. Results should be interpreted in conjunction with this clinical information and any physic al signs/symptoms of rejection/toxicity. Testing performed by Liquid Chromatograp hy-Tandem Mass Spectrometry (LC-MS/MS). This test was developed and its performa nce characteristics determined by [facility] in a manner consistent with CLIA requirements. This test has not been cleared or approved by the U.S. Mer d and Drug Administration. Specimen Anatomical Collection Method Collection Time Receive d Time (Source) Location / / Volume Laterality Blood (Blood, 10/13/2021 8:16 AM 10/14/19 Venous) CDT 11:03 AM CDT Julian Sanchez M.D. LAB BLOOD NON ADD-ON Performing Organization Address City/[facility]/ZIP Code Phon e Number [facility] [address] [place], [place] [address] [facility] [place] [address] Laboratory Medicine and Pathology [address] [place] (ABNORMAL) Glucose, POCT (10/13/2021 8:12 AM CDT) Analysis Performed At Patho logist Time Signature Glucose, POCT, 187 (H) 70 - 140 10/13/2021 PCLX B mg/dL 8:20 AM CDT Site Capillary 10/13/2021 PCLX 8:20 AM CDT Last Intake > 4 hours 10/13/2021 PCLX 8:20 AM CDT Specimen Anatomical Collection Method Collection Time Receive d Time (Source) Location / / Volume Laterality Blood 10/13/2021 8:12 AM 8:20 CDT AM CDT Unknown Provider LAB POCT ORDERABLES-MANUAL Performing Organization Address City/State/ZIP Code Phon e Number [facility] [address] [place] [address] [place] [address] [facility] [address] (ABNORMAL) Morphology Evaluation (Special Smear) (10/13/2021 5:19 AM CDT) [facility] Method Time Signature Neutrophilic Segs 73 50 - 75 % 10/13/2021 [facility]ands 8:03 AM CDT Lymphocytes 14 (L) 18 - 42 % 10/13/2021 [facility] 8:03 AM CDT Monocytes 8 2 - 11 % 10/13/2021 [facility] 8:03 AM CDT Eosinophils 1 1 - 3 % 10/13/2021 [facility] 8:03 AM CDT Metamyelocytes 1 (H) <1 % 10/13/2021 [facility] 8:03 AM CDT Myelocytes 3 (H) <0.5 % 10/13/2021 [facility] 8:03 AM CDT Manual Absolute 3.21 1.56 - 10/13/2021 PM Neutrophil Count 6.45 8:03 AM CDT x10(9)/L Comment: ----ADDITIONAL INFORMATION---- The manual absolute neutrophil count is derived from a manual differential count and therefore is not exactly comparable to the automated absolute rui trophil count. Interpretation Polychromasia is present. 8:03 AM CDT [facility] Reviewed by: Tereza 10/13/2021 8:03 AM CDT [facility] Specimen Anatomical Collection Method Collection Time Receive d Time (Source) Location / / Volume Laterality Blood (Blood, 10/13/2021 5:19 AM 10/14/19 6:32 Venous) CDT AM CDT Nelli Gloria APRN, C.N.P. LAB BLOOD ADD-ON Performing Organization Address City/State/ZIP Code Phon e Number [facility] - [address] [place], [place] [address] [facility] [place] [address] [facility] [address] Folate (10/13/2021 5:19 AM CDT) athologist Signature Folate, S >20.0 >=4.0 mcg/L 10/15/2021 9:05 DTL AM CDT Specimen Anatomical Collection Method Collection Time Receive d Time (Source) Location / / Volume Laterality Blood (Blood, 10/13/2021 5:19 AM 10/14/19 6:49 Venous) CDT AM CDT Nelli Gloria APRN, C.N.P. LAB BLOOD ADD-ON Performing Organization Address City/[facility] Phon e Number [facility] - [address] [address] [address] Vitamin B12 Assay (10/13/2021 5:19 AM CDT) athologist Signature Vitamin B12 456 180 - 914 10/15/2021 DT Assay, S ng/L 9:12 AM CDT Comment: ----ADDITIONAL INFORMATION---- In patients being evaluated for vitamin B12 deficiency who have intrinsic factor blocking antibodie s (IFBA), false elevations of B12 may occur due to IFBA interference thus potentially obscuring a physiological de ficiency of B12. If observed B12 concentrations are disco rdant with clinical presentation, measurement of methylmalon ic acid (MMA) should be considered. Specimen Anatomical Collection Method Collection Time Receive d Time (Source) Location / / Volume Laterality Blood (Blood, 10/13/2021 5:19 AM 10/14/19 6:49 Venous) CDT AM CDT Nelli Gloria APRN, C.N.P. LAB BLOOD ADD-ON Performing Organization Address [facility] Phon e Number [facility] - [address] [place], [place] [address] [place] [address] Laboratories[address] (ABNORMAL) Hemoglobin A1c (10/13/2021 5:19 AM CDT) athologist Signature Hemoglobin A1c, 7.4 (H) 4.0 - 5.6 10/13/2021 DTL B % 7:10 AM CDT Comment: Hemoglobin A1c values greater than or eq ual to 6.5 percent are diagnostic for diabetes mellitus. ?? Diagnosis should be confirmed by repeat testing. ??In diabet ic patients, HbA1c goals should be discussed with healthcar e provider. Specimen Anatomical Collection Method Collection Time Receive d Time (Source) Location / / Volume Laterality Blood (Blood, 10/13/2021 5:19 AM 10/14/19 6:32 Venous) CDT AM CDT Nelli Gloria APRN C.N.PDemetrius LAB BLOOD ADD-ON Performing Organization Address City/State/ZIP Code Phon e Number [facility] - [address] [place], [place] [address] [facility] [place] [address] [facility] [address] [facility] (ABNORMAL) CBC with Differential, Blood (10/13/2021 5:19 AM CDT) [facility] gist Method Time Signature Hemoglobin 8.0 (L) 13.2 - 10/13/2021 DTL 16.6 g/dL 6:43 AM CDT Hematocrit 24.7 (L) 38.3 - 10/13/2021 DTL 48.6 % 6:43 AM CDT Erythrocytes 2.53 (L) 4.35 - 10/13/2021 DTL 5.65 6:43 AM CDT x10(12)/L MCV 97.6 78.2 - 10/13/2021 DTL 97.9 fL 6:43 AM CDT RBC Distrib 14.6 (H) 11.8 - 10/13/2021 DTL Width 14.5 % 6:43 AM CDT Platelet Count 166 135 - 317 10/13/2021 DTL x10(9)/L 6:43 AM CDT Leukocytes 4.4 3.4 - 9.6 10/13/2021 DTL x10(9)/L 6:43 AM CDT Neutrophils SeeComment 1.56 - 10/13/2021 DTL 6.45 8:03 AM CDT x10(9)/L Comment: Auto-diff results not valid. Se e manual differential. Specimen Anatomical Collection Method Collection Time Receive d Time (Source) Location / / Volume Laterality Blood (Blood, 10/13/2021 5:19 AM 10/14/19 6:32 Venous) CDT AM CDT Nelli Osborn Janette Gloria APRNNJuan Miguel LAB BLOOD ADD-ON Performing Organization Address City/State/ZIP Code Phon e Number [facility] - [address] [place], [place] [address] [facility] [place] [address] [facility] [address] (ABNORMAL) Comprehensive Metabolic Panel (10/13/2021 5:19 AM CDT) Analysis Performed At Patho logist Time Signature Potassium, S 3.8 3.6 - 5.2 10/13/2021 DTL mmol/L 7:08 AM CDT Sodium, S 128 (L) 135 - 145 10/13/2021 DTL mmol/L 7:08 AM CDT Chloride, S 92 (L) 98 - 107 10/13/2021 DTL mmol/L 7:08 AM CDT Bicarbonate, S 22 22 - 29 10/13/2021 DTL mmol/L 7:08 AM CDT Anion Gap 14 7 - 15 10/13/2021 DTL 7:08 AM CDT BUN (Blood Urea 45 (H) 8 - 24 10/13/2021 DTL Nitrogen), S mg/dL 7:08 AM CDT Creatinine 3.39 (H) 0.74 - 10/13/2021 DTL 1.35 mg/dL 7:08 AM CDT eGFR-Non 18 (L) >=60 10/13/2021 DTL Black/ mL/min/BSA 7:08 AM CDT [place] Comment: ----ADDITIONAL INFORMATION---- Estimated GFR calculated using the 2009 CKD_EPI creatinine equation. eGFR-Black/ 20 (L) >=60 mL/min/BSA 2021 7:08 AM CDT DTL Comment: ----ADDITIONAL INFORMATION---- Estimated GFR calculated using the 2009 CKD_EPI creatinine equation. Calcium, Total, S 8.0 (L) 8.8 - 10.2 mg/dL 10/13/2021 7:08 AM CDT DTL Glucose, S 216 (H) 70 - 140 mg/dL 10/13/2021 7:08 AM CDT D TL Protein, Total, S 4.9 (L) 6.3 - 7.9 g/dL 10/13/2021 7:08 A M CDT DTL Albumin, S 3.4 (L) 3.5 - 5.0 g/dL 10/13/2021 7:08 AM CDT D TL Aspartate Aminotransferase 14 8 - 48 U/L 10/13/2021 7 :08 AM CDT DTL (AST), S Alkaline Phosphatase, S 86 40 - 129 U/L 10/13/2021 7: 08 AM CDT DTL Alanine Aminotransferase 17 7 - 55 U/L 10/13/2021 7:0 8 AM CDT DTL (ALT), S Bilirubin, Total, S 0.2 <=1.2 mg/dL 10/13/2021 7:08 AM CDT DTL Specimen Anatomical Collection Method Collection Time Receive d Time (Source) Location / / Volume Laterality Blood (Blood, 10/13/2021 5:19 AM 10/14/19 6:49 Venous) CDT AM CDT Janette Gonzalez APRNN.PDemetrius LAB BLOOD ADD-ON Performing Organization Address City/[facility] Code Phon e Number [facility] - [address] [place], [place] [address] [facility] [place] [address] [facility] [address] Aspergillus fumigatus, IgG Antibodies (10/13/2021 5:15 AM CDT) athologist Signature Aspergillus <3.0 <=102 mg/L 10/15/2021 SDSC fumigatus, IgG 3:08 PM CDT Ab, S Comment: ----ADDITIONAL INFORMATION---- This test was developed and its performa nce characteristics determined by [facility] in a manner co nsistent with CLIA requirements. This test has not bee n cleared or approved by the U.S. Food and Drug Admin istration. Specimen Anatomical Collection Method Collection Time Receive d Time (Source) Location / / Volume Laterality Blood (Blood, 10/13/2021 5:15 AM 10/16/19 Venous) CDT 10:54 AM CDT Julian Sanchez M.D. LAB BLOOD ADD-ON Performing Organization Address City/[facility]/ZIP Code Phon e Number [facility] [address] [place] [address] SUPPORT [facility] [place] [address] Laboratory Medicine and Pathology [address] [place] [address] Dr. MURILLO Blastomyces Ab, EIA (10/13/2021 5:15 AM CDT) [facility] Signature Blastomyces Ab, Negative Negative 10/15/2021 [facility] EIA, S 8:00 PM CDT Comment: A single negative result does not exclud e the diagnosis of blastomycosis. ??Repeat testing on a new sample in 7-14 days if clinically indicated. Specimen Anatomical Collection Method Collection Time Receive d Time (Source) Location / / Volume Laterality Blood (Blood, 10/13/2021 5:15 AM 10/14/19 Venous) CDT 12:18 PM CDT Julian Sanchez M.D. LAB MICROBIOLOGY - BLOOD ORD ERABLES Performing Organization Address [facility] Phon e Number [place] [id number] [place] [address] 05 [facility] [place] [address] Laboratory Medicine and Pathology [address] [place] [address] Dr. MURILLO Histoplasma Ab (10/13/2021 5:15 AM CDT) [facility] Signature Histoplasma Negative Negative 10/17/2021 [facility] Mycelial 1:32 PM CDT Histoplasma Yeast Negative Negative 10/17/2021 [facility] 1:32 PM [facility]T Histoplasma Negative Negative 10/17/2021 [facility] Immunodiffusion 1:32 PM CDT Comment: A negative complement fixation and immun odiffusion (CF/ID) result does not exclude the diagnosis of histoplasmosis. ??Repeat testing by CF/ID in 1-2 weeks if clinically indicated. Specimen Anatomical Collection Method Collection Time Receive d Time (Source) Location / / Volume Laterality Blood (Blood, 10/13/2021 5:15 AM 10/14/19 Venous) CDT 12:22 PM CDT Julian Sanchez M.D. LAB MICROBIOLOGY - BLOOD ORD ERABLES Performing Organization Address City/[facility] Phon e Number [facility] [address] [place] [address] 05 [facility] [place] [address] Laboratory Medicine and Pathology [address] [place] [address] Dr. MURILLO (ABNORMAL) Glucose, POCT (10/13/2021 2:12 AM CDT) P athologist Signature Glucose, POCT, 287 (H) 70 - 140 10/13/2021 PCLX B mg/dL 2:19 AM CDT Specimen Anatomical Collection Method Collection Time Receive d Time (Source) Location / / Volume Laterality Blood 10/13/2021 2:12 AM 2:19 CDT AM CDT Unknown Provider LAB POCT ORDERABLES-MANUAL Performing Organization Address City/State/ZIP Code Phon e Number [facility] [address] [place] [address] PCL[place], [place] [id number] [place] [address] POC 200 [facility] (ABNORMAL) Glucose, POCT (10/13/2021 12:48 AM CDT) Analysis Performed At Patho logist Time Signature Glucose, POCT, 283 (H) 70 - 140 10/13/2021 PCLX B mg/dL 12:52 AM CDT Site Capillary 10/13/2021 PCLX 12:52 AM CDT Specimen Anatomical Collection Method Collection Time Receive d Time (Source) Location / / Volume Laterality Blood 10/13/2021 12:48 10/13/2021 AM CDT 12:52 AM CDT Unknown Provider LAB POCT ORDERABLES-MANUAL Performing Organization Address City/[facility] Code Phon e Number [facility] [address] [place] [address] [place] [address] [place] POC [address] [facility] Respiratory Panel, PCR, TRAFFIC SAFETY 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 (10/12/2021 10:37 PM CDT) Component Value Ref Range Test Analysis Performed Pathologis t Method Time At Signature Specimen NASOPHARYNGEAL 10/13/2021 DTL Source SWAB 12:34 AM CDT Adenovirus Undetected Undetected 10/13/2021 DTL 12:34 AM CDT Coronavirus Undetected Undetected 10/13/2021 DTL 229E 12:34 AM CDT Coronavirus Undetected Undetected 10/13/2021 DTL HKU1 12:34 AM CDT Coronavirus Undetected Undetected 10/13/2021 DTL NL63 12:34 AM CDT Coronavirus Undetected Undetected 10/13/2021 DTL OC43 12:34 AM CDT SARS Undetected Undetected 10/13/2021 DTL Coronavirus-2 12:34 AM CDT Comment: SARS-CoV-2 RNA absent. This result does not rule out COVID-19 in the patient, as the sensitivity of the test depends o n the timing of the specimen collection and the quality of the specim en. Result should be correlated with patient's history and clinical presentat ion. Human Metapneumovirus Undetected Undetected 10/13/2021 12:34 AM DTL CDT Human Rhinovirus/ Undetected Undetected 10/13/2021 12:34 AM DTL Enterovirus CDT Influenza A Undetected Undetected 10/13/2021 12:34 AM DTL CDT Influenza B Undetected Undetected 10/13/2021 12:34 AM DTL CDT Parainfluenza Virus 1 Undetected Undetected 10/13/2021 12:34 AM DTL CDT Parainfluenza Virus 2 Undetected Undetected 10/13/2021 12:34 AM DTL CDT Parainfluenza Virus 3 Undetected Undetected 10/13/2021 12:34 AM DTL CDT Parainfluenza Virus 4 Undetected Undetected 10/13/2021 12:34 AM DTL CDT Respiratory Syncytial Undetected Undetected 10/13/2021 12:34 AM DTL Virus CDT Bordetella parapertussis Undetected Undetected 10/13/2021 12 :34 AM DTL CDT Bordetella pertussis Undetected Undetected 10/13/2021 12:34 AM DTL CDT Chlamydia pneumoniae Undetected Undetected 10/13/2021 12:34 AM DTL CDT Mycoplasma pneumoniae Undetected Undetected 10/13/2021 12:34 AM DTL CDT Interpretation This assay is not predicted to detect SARS-coronavirus (CoV), or MERS-CoV. If 10/13/2021 12:34 AM DTL SARS-CoV or MERS-CoV is suspected, coordinate testing through a local public T health laboratory. Comment: ----ADDITIONAL INFORMATION---- This assay is performed using the FDA-Cl eared FilmArray Respiratory Panel 2.1 ([employer]). This assay is performed using the FilmCellvine Respiratory Panel 2.1 ([employer]). For testing performed at [facility] in [place], [place], performance characteristics for samples submitted in phosphate buffered saline were determined by [facility] in a manner consistent with CLIA requirements. Specimen Anatomical Collection Method Collection Time Receive d Time (Source) Location / / Volume Laterality Varies 10/12/2021 10:37 10/12/2021 (Nasopharynx) PM CDT 11:27 PM CDT Arley Gonzalez APRN.N.P. LAB MICROBIOLOGY - G ENERAL ORDERABLES Performing Organization Address [facility] Phon e Number [facility] - [address] [place] [address] Gram Stain (10/12/2021 10:37 PM CDT) [facility] Method Time Signature Gram Stain No organisms seen. 10/12/2021 DTL White blood cells, Few. 11:53 PM CDT Epithelial cells, Few. Specimen Anatomical Collection Method Collection Time Receive d Time (Source) Location / / Volume Laterality Sputum 10/12/2021 10:37 10/12/2021 PM CDT 11:33 PM CDT Comment: Specimen Source Site: Sputum Nelli Gloria APRN, C.N.P. LAB MICROBIOLOGY - G ENERAL ORDERABLES Performing Organization Address City/[facility] Phon e Number [facility] - [address] (ABNORMAL) Bacterial Culture, Aerobic + Susc, Resp (10/12/2021 10:37 PM CDT) [facility] Method Time Signature Bacterial With usual 10/16/2021 DTL Culture, efrem (A) 1:11 PM CDT Aerobic, Resp Bacterial SERRATIA MARCESCENS 10/16/2021 DTL Culture, 1+ 1:11 PM CDT Aerobic, Resp (A) Comment: This organism may contain an inducible b eta-lactamase. Second- or third-generation cephalospori n monotherapy may result in the emergence of high-level resistance. Preferred empiric therapy, p ending antimicrobial susceptibility results, is cefepime, a f luoroquinolone, or a carbapenem, unless clinically contr aindicated. Specimen Anatomical Collection Method Collection Time Receive d Time (Source) Location / / Volume Laterality Sputum (Sputum) 10/12/2021 10:37 10/13/19 22 PM CDT 11:33 PM CDT Comment: Specimen Source Site: Sputum Organism Antibiotic Method Susceptibility Serratia marcescens Ampicillin SUSCEPTIBILITY, >16 mcg/mL: Resistant DAVID (MCG/ML) Serratia marcescens Ampicillin + Sulbactam SUSCEPTIBILITY, >16/8 mcg/mL: Resistant DAVID (MCG/ML) Serratia marcescens Meropenem SUSCEPTIBILITY, <=0.12 mcg/m L: DAVID (MCG/ML) Susceptible Serratia marcescens Ertapenem SUSCEPTIBILITY, <=0.25 mcg/m L: DAVID (MCG/ML) Susceptible Serratia marcescens Piperacillin + Tazobactam SUSCEPTIBILITY, <= 16/4 mcg/mL: DAVID (MCG/ML) Susceptible Serratia marcescens Ciprofloxacin SUSCEPTIBILITY, <=0.25 mcg/m L: DAVID (MCG/ML) Susceptible Serratia marcescens Levofloxacin SUSCEPTIBILITY, <=0.5 mcg/mL : DAVID (MCG/ML) Susceptible Serratia marcescens Cefazolin SUSCEPTIBILITY, >16 mcg/mL: Resistant [...] DAVID (MCG/ML) Serratia marcescens Trimethoprim + SUSCEPTIBILITY, <=0.5/9.5 mc g/mL: Sulfamethoxazole DAVID (MCG/ML) Susceptible Nelli Gloria APRN CDemetriusN.PDemetrius LAB MICROBIOLOGY - G ENERAL ORDERABLES Performing Organization Address City/State/ZIP Code Phon e Number [facility] - [address] [place], [place] [address] [place] [address] [place] [address] [facility] [address] Chest without IV Contrast (10/12/2021 7:19 PM CDT) Anatomical Region Laterality Modality Chest, Thoracic RST LOS, Thoracic ARZ N/A Co mputed Tomography, Computed LOS, Thoracic FLA LOS Tomography Specimen (Source) Anatomical Collection Method Collection Time Re ceived Time Location / / Volume Laterality 10/12/2021 7:49 PM CDT Impressions 10/12/2021 9:34 PM CDT 1. Worsening micronodular opacities in the bilateral lower lobes and basilar right middle lobe and lingula with associated bronchial wall t hickening suspicious for infectious/inflammatory pneumonia, possibly from aspiration . 2. 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 Narrative 10/12/2021 9:34 PM CDT EXAM: CT CHEST WITHOUT IV CONTRAST COMPARISON: CT chest 06/12/2021, CT abdo men pelvis 11/27/2020 FINDINGS: Compared to the prior examination, worse shantelle micronodular opacities in the bilateral lower lobes, basilar right middle lobe and lingula westbrook spicious for worsening infectious/inflammatory pneumonia, possibly from aspiration. Stable tiny 3 mm solid pulmonary nodule in the lateral basilar right lower lobe (series 4 image 112). Moderate bilateral bronchial wall thicke shantelle greatest in the basilar segments of the lower lungs bilaterally. No pleural effusion or pneu mothorax. Vascular calcifications including severe coronary artery calcifications. Right IJ hemodialysis catheter tip at the SVC/RA junction. Partially visualized mild splenomegaly m easuring 15 cm in the AP dimension. Postoperative changes of the liver transplant. Multilevel hypertrophic degenerative breezy nges of spine. Chronic fracture deformity of the right clavicle. Mild bilateral gynecomastia. Procedure Note Wang Rodríguez M.B.B.S., M.D. - EXAM: CT CHEST WITHOUT IV CONTRAST COMPARISON: CT chest 06/12/2021, CT abdo men pelvis 11/27/2020 FINDINGS: Compared to the prior examination, worse shantelle micronodular opacities in the bilateral lower lobes, basilar right middle lobe and lingula westbrook spicious for worsening infectious/inflammatory pneumonia, possibly from aspiration. Stable tiny 3 mm solid pulmonary nodule in the lateral basilar right lower lobe (series 4 image 112). Moderate bilateral bronchial wall thicke shantelle greatest in the basilar segments of the lower lungs bilaterally. No pleural effusion or pneu mothorax. Vascular calcifications including severe coronary artery calcifications. Right IJ hemodialysis catheter tip at the SVC/RA junction. Partially visualized mild splenomegaly m easuring 15 cm in the AP dimension. Postoperative changes of the liver transplant. Multilevel hypertrophic degenerative breezy nges of spine. Chronic fracture deformity of the right clavicle. Mild bilateral gynecomastia. IMPRESSION: 1. Worsening micronodular opacities in t he bilateral lower lobes and basilar right middle lobe and lingula with associated bronchial wall t hickening suspicious for infectious/inflammatory pneumonia, possibly from aspiration . 2. 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 Nelli Gloria APRN, C.N.P. IMG CT PROCEDURES (ABNORMAL) Glucose, POCT (10/12/2021 6:15 PM CDT) Analysis [facility] Signature Glucose, POCT, 292 (H) 70 - 140 10/12/2021 PCLX B mg/dL 6:21 PM CDT Site Capillary 10/12/2021 PCLX 6:21 PM CDT Last Intake 1-2 hours 10/12/2021 PCLX 6:21 PM CDT Specimen Anatomical Collection Method Collection Time Receive d Time (Source) Location / / Volume Laterality Blood 10/12/2021 6:15 PM 6:21 CDT PM CDT Unknown Provider LAB POCT ORDERABLES-MANUAL Performing Organization Address City/State/ZIP Code Phon e Number [facility]OC [facility] [address] [place] [address] [place] [address] [place] POC [address] Glucose, POCT (10/12/2021 5:11 PM CDT) Analysis Performed At [facility] Signature Glucose, POCT, Collected DEFAULT 10/12/2021 SMLX B 5:11 PM CDT Specimen Anatomical Collection Method Collection Time Receive d Time (Source) Location / / Volume Laterality Blood (Blood, 10/12/2021 5:11 PM 10/13/19 5:11 Capillary) CDT PM CDT Dex Rouse M.D., Ph.D. LAB POCT ORDERABLES-MANUAL Performing Organization Address City/[facility]/ZIP [facility] Phon e Number [facility] - [address] [place], [place] [address] [facility] [place] [place] [address] [facility] 200 [facility] (ABNORMAL) Glucose, POCT (10/12/2021 5:09 PM CDT) Analysis Performed At Patho logist Time Signature Glucose, POCT, 387 (H) 70 - 140 10/12/2021 PCLX B mg/dL 5:14 PM CDT Site Capillary 10/12/2021 PCLX 5:14 PM CDT Specimen Anatomical Collection Method Collection Time Receive d Time (Source) Location / / Volume Laterality Blood 10/12/2021 5:09 PM 5:14 CDT PM CDT Unknown Provider LAB POCT ORDERABLES-MANUAL Performing Organization Address [facility] Phon e Number [facility]OC [facility] [address] [place] [address] [facility]CL[place] [facility] [place] [address] [facility] 200 [facility] (ABNORMAL) Venous Blood Gas and Electrolytes CG8+, POCT (10/12/2021 4:12 PM CDT) P athologist Signature Sample Site, Venstick 10/12/2021 PCSM POCT 4:21 PM CDT Comment: ----ADDITIONAL INFORMATION---- Performed at the Point of Care pH, Venous, POCT, B 7.44 (H) 7.32 - 7.43 10/12/2021 4:21 PM CDT PCSM Comment: ----ADDITIONAL INFORMATION---- Performed at the Point of Care pCO2, Venous, POCT, B 32 (L) 41 - 51 mm Hg 10/12/2021 4:2 1 PM CDT PCSM Comment: ----ADDITIONAL INFORMATION---- Performed at the Point of Care pO2, Venous, POCT, B 54 Not Applicable mm Hg 10/13/19 4:21 PM CDT PCSM Comment: ----ADDITIONAL INFORMATION---- Performed at the Point of Care Base Excess, Venous, POCT, B -2 Not Applicable mmol/L 10/12/2021 4:21 PM CDT PCSM Comment: ----ADDITIONAL INFORMATION---- Performed at the Point of Care HCO3, Venous, POCT, B 22 Not Applicable mmol/L 2021 4:21 PM CDT PCSM Comment: ----ADDITIONAL INFORMATION---- Performed at the Point of Care Sodium, POCT, B 124 (L) 135 - 145 mmol/L 10/12/2021 4:21 P M CDT PCSM Comment: ----ADDITIONAL INFORMATION---- Performed at the Point of Care Potassium, POCT, B 4.7 3.6 - 5.2 mmol/L 10/12/2021 4:2 1 PM CDT PCSM Comment: ----ADDITIONAL INFORMATION---- Performed at the Point of Care Calcium, Ionized, POCT, B 4.60 (L) 4.65 - 5.30 mg/dL 4:21 PM CDT PCSM Comment: ----ADDITIONAL INFORMATION---- Performed at the Point of Care Glucose, POCT, B 422 (H) 70 - 140 mg/dL 10/12/2021 4:21 PM CDT PCSM Comment: ----ADDITIONAL INFORMATION---- Performed at the Point of Care Hematocrit, POCT, B 25.0 (L) 38.3 - 48.6 % 10/12/2021 4:21 PM CDT PCSM Comment: ----ADDITIONAL INFORMATION---- Performed at the Point of Care Specimen Anatomical Collection Method Collection Time Receive d Time (Source) Location / / Volume Laterality Blood 10/12/2021 4:12 PM 4:21 CDT PM CDT Unknown Provider LAB POCT ORDERABLES - DEVICE Performing Organization Address City/State/ZIP Code Phon e Number POC [facility] [address] [place], [place] [address] LABS PCSM [facility] [place] [address] [place] POC [address] Beta-Hydroxybutyrate (10/12/2021 4:11 PM CDT) P athologist Signature Beta-Hydroxybut 0.1 <0.4 mmol/L 10/12/2021 DTL yrate, S 5:11 PM CDT Specimen Anatomical Collection Method Collection Time Receive d Time (Source) Location / / Volume Laterality Blood (Blood, 10/12/2021 4:11 PM 10/13/19 4:43 Venous) CDT PM CDT Dex Rouse M.D., Ph.D. LAB BLOOD ADD-ON Performing Organization Address City/[facility]/ZIP Code Phon e Number [facility] - [address] [place] [address] [facility] DTL [place] [phone] [address] Venous Blood Gas and Electrolytes, POCT (10/12/2021 4:11 PM CDT) Analysis Performed At Patho logist Time Signature ABG and Lytes, Collected DEFAULT 10/12/2021 SMLX POCT, B 4:11 PM CDT Specimen Anatomical Collection Method Collection Time Receive d Time (Source) Location / / Volume Laterality Blood (Other, 10/12/2021 4:11 PM 10/13/19 4:11 Specify in CDT PM CDT Comments) Dex Rouse M.D., Ph.D. LAB POCT ORDERABLES - DEVIC E Performing Organization Address [facility] Phon e Number [facility] - [address] [place] [address] 05 [facility] [place] [place] [address] Bacteria / Marry Culture, Blood #1 (10/12/2021 2:56 PM CDT) Patholo gist Method Time Signature Bacteria/Negar No growth 10/17/2021 DTL da Culture, after 5 4:02 PM CDT Blood days of incubation. Specimen (Source) Anatomical Collection Method Collection Time Re ceived Time Location / / Volume Laterality Blood (Blood, 10/12/2021 2:56 10/12/2021 3:24 Peripheral Draw) PM CDT PM CDT Comment: Specimen Source Site: Blood Narrative [facility] [email or web address] - [facility] - 10/17/2021 4:02 PM CDT Received Bactec aerobic and Bactec anaer obic bottles Dex Rouse M.D., Ph.D. LAB MICROBIOLOGY - GENERAL ORDERABLES Performing Organization Address City/[facility] Phon e Number [facility] - [address] [place], [place] [address] [facility] [place] [address] [facility] [address] [facility] Lactate, POCT (10/12/2021 2:52 PM CDT) Analysis Performed At Patho logist Time Signature Lactate, POCT Collected DEFAULT 10/12/2021 SMLX 2:52 PM CDT Specimen Anatomical Collection Method Collection Time Receive d Time (Source) Location / / Volume Laterality Blood (Blood, 10/12/2021 2:52 PM 10/13/19 2:52 Venous) CDT PM CDT Dex Rouse M.D., Ph.D. LAB POCT ORDERABLES - DEVIC E Performing Organization Address City/[facility] Phon e Number [facility] - [address] [place], [place] [address] [facility] [place] [address] [facility] 200 [facility] Lactate, POCT (10/12/2021 2:51 PM CDT) P athologist Signature Lactate, POCT 1.41 0.50 - 10/12/2021 PCLX 2.20 3:30 PM CDT mmol/L Sample Site, Venstick 10/12/2021 PCLX POCT 3:30 PM CDT Specimen Anatomical Collection Method Collection Time Receive d Time (Source) Location / / Volume Laterality Blood 10/12/2021 2:51 PM 3:30 CDT PM CDT Unknown Provider LAB POCT ORDERABLES - DEVICE Performing Organization Address City/[facility] Phon e Number [facility] [address] [place] [address] [place] [address] [place] [facility] 200 [facility] (ABNORMAL) Hepatic Function Panel (10/12/2021 2:51 PM CDT) Patholo gist Method Time Signature Bilirubin, Total, S 0.5 <=1.2 10/12/2021 DTL mg/dL 3:49 PM CDT Bilirubin, Direct, S <0.2 0.0 - 0.3 10/12/2021 DTL mg/dL 3:49 PM CDT Aspartate 17 8 - 48 10/12/2021 DTL Aminotransferase U/L 3:49 PM CDT (AST), S Alanine 21 7 - 55 10/12/2021 DTL Aminotransferase U/L 3:49 PM CDT (ALT), S Alkaline 101 40 - 129 10/12/2021 DTL Phosphatase, S U/L 3:49 PM CDT Albumin, S 3.5 3.5 - 5.0 10/12/2021 DTL g/dL 3:49 PM CDT Protein, Total, S 5.5 (L) 6.3 - 7.9 10/12/2021 DTL g/dL 3:49 PM CDT Specimen Anatomical Collection Method Collection Time Receive d Time (Source) Location / / Volume Laterality Blood (Blood, 10/12/2021 2:51 PM 10/13/19 3:23 Venous) CDT PM CDT Dex Rouse M.D., Ph.D. LAB BLOOD ADD-ON Performing Organization Address City/State/ZIP Code Phon e Number [facility] - [address] [place], [place] [address] [facility] [place] [address] [facility] [address] [facility] (ABNORMAL) Basic Metabolic Panel (10/12/2021 2:51 PM CDT) Analysis Performed At Patho logist Time Signature Potassium, P 4.7 3.6 - 5.2 10/12/2021 [facility] mmol/L 4:03 PM CDT Sodium, P 124 (L) 135 - 145 10/12/2021 [facility] mmol/L 4:03 PM CDT Chloride, P 89 (L) 98 - 107 10/12/2021 [facility] mmol/L 4:03 PM CDT Bicarbonate, P 19 (L) 22 - 29 10/12/2021 [facility] mmol/L 4:03 PM CDT Anion Gap, P 16 (H) 7 - 15 10/12/2021 [facility] 4:03 PM CDT BUN (Blood Urea 35 (H) 8 - 24 10/12/2021 [facility] Nitrogen), P mg/dL 4:03 PM CDT Creatinine 2.48 (H) 0.74 - 10/12/2021 [facility] 1.35 mg/dL 4:03 PM CDT eGFR-Black/Afri 30 (L) >=60 10/12/2021 [facility] can [place] mL/min/BSA 4:03 PM CDT Comment: ----ADDITIONAL INFORMATION---- Estimated GFR calculated using the 2009 CKD_EPI creatinine equation. eGFR Non-Black/ 26 (L) >=60 mL/min/BSA 10/12/2021 4:03 PM CDT STMA [place] Comment: ----ADDITIONAL INFORMATION---- Estimated GFR calculated using the 2009 CKD_EPI creatinine equation. Calcium, Total, P 8.1 (L) 8.8 - 10.2 mg/dL 10/12/2021 4:03 PM CDT STMA Glucose, P 435 (CH) 70 - 140 mg/dL 10/12/2021 4:03 PM CDT S TMA Specimen Anatomical Collection Method Collection Time Receive d Time (Source) Location / / Volume Laterality Blood (Blood, 10/12/2021 2:51 PM 10/13/19 3:07 Venous) CDT PM CDT Dex Rouse M.D., Ph.D. LAB BLOOD ADD-ON Performing Organization Address City/State/ZIP Code Phon e Number [facility] - [address] [place], [place] [address] [place] [address] [facility] 200 [facility] (ABNORMAL) CBC with Differential, Blood (10/12/2021 2:51 PM CDT) [facility] Method Time Signature Hemoglobin 8.8 (L) 13.2 - 10/12/2021 [facility] 16.6 g/dL 3:16 PM CDT Hematocrit 27.0 (L) 38.3 - 10/12/2021 [facility] 48.6 % 3:16 PM CDT Erythrocytes 2.72 (L) 4.35 - 10/12/2021 [facility] 5.65 3:16 PM CDT x10(12)/L MCV 99.3 (H) 78.2 - 10/12/2021 [facility] 97.9 fL 3:16 PM CDT RBC Distrib Width 14.3 11.8 - 10/12/2021 [facility] 14.5 % 3:16 PM CDT Platelet Count 182 135 - 317 10/12/2021 [facility] x10(9)/L 3:16 PM CDT Leukocytes 7.2 3.4 - 9.6 10/12/2021 [facility] x10(9)/L 3:16 PM CDT Neutrophils 6.42 1.56 - 10/12/2021 [facility] 6.45 3:16 PM CDT x10(9)/L Lymphocytes 0.38 (L) 0.95 - 10/12/2021 [facility] 3.07 3:16 PM CDT x10(9)/L Monocytes 0.40 0.26 - 10/12/2021 [facility] 0.81 3:16 PM CDT x10(9)/L Eosinophils <0.03 0.03 - 10/12/2021 [facility] 0.48 3:16 PM CDT x10(9)/L Basophils <0.03 0.01 - 10/12/2021 [facility] 0.08 3:16 PM CDT x10(9)/L Specimen Anatomical Collection Method Collection Time Receive d Time (Source) Location / / Volume Laterality Blood (Blood, 10/12/2021 2:51 PM 10/13/19 3:07 Venous) CDT PM CDT Dex Rouse M.D., Ph.D. LAB BLOOD ADD-ON Performing Organization Address City/[facility] Phon e Number [facility] - [address] [place] [id number] [address] Bacteria / Marry Culture, Blood #2 (10/12/2021 2:50 PM CDT) [facility] gist Method Time Signature Bacteria/Negar No growth 10/17/2021 DT da Culture, after 5 4:02 PM CDT Blood days of incubation. Specimen (Source) Anatomical Collection Method Collection Time Re ceived Time Location / / Volume Laterality Blood (Blood, 10/12/2021 2:50 10/12/2021 3:23 Peripheral Draw) PM CDT PM CDT Comment: Specimen Source Site: Blood Dex Rouse M.D., Ph.D. LAB MICROBIOLOGY - GENERAL ORDERABLES Performing Organization Address City/[facility] Phon e Number [facility] - [address] [place] [address] [place] [address] [facility] [address] DX Chest AP or PA and Lateral 2 Views (10/12/2021 2:36 PM CDT) Anatomical Region Laterality Modality Chest, Thoracic RST LOS, Thoracic ARZ LOS, Thoracic N/A Digital Radiography FLA LOS Specimen (Source) Anatomical Collection Method Collection Time Re ceived Time Location / / Volume Laterality 10/12/2021 2:37 PM CDT Impressions 10/12/2021 2:38 PM CDT No significant change since 07/31/2021. Reticulonodular opacities in the mid and lower lungs. Right IJ CVC tip in the low SVC. Aortic calcifications. Narrative 10/12/2021 2:38 PM CDT EXAM: ??DX CHEST AP OR PA AND LATERAL 2 VIEWS Procedure Note Toro Samuel M.D. - 10/12/2021Forma tting of this note might be different from the original. EXAM: DX CHEST AP OR PA AND LATERAL 2 EWS IMPRESSION: No significant change since 07/31/2021. Reticulonodular opacities in the mid and lower lungs. Right IJ CVC tip in the low SVC. Aortic calcifications. Dex Rouse M.D., Ph.D. [facility] PROC EDURES Influenza A/B, SARS CoV-2, PCR, Rapid, Varies Symptomatic (10/12/2021 1:55 PM CDT) [facility] Method Time Signature Influenza A, Negative Negative 10/12/2021 [facility] PCR, Rapid, V 2:28 PM CDT Influenza B, Negative Negative 10/12/2021 [facility] PCR, Rapid, V 2:28 PM CDT SARS CoV-2, Undetected Undetected 10/12/2021 [facility] PCR, Rapid, V 2:28 PM CDT Comment: ----ADDITIONAL INFORMATION---- This RT-PCR test was performed using the Yadiel SARS-CoV-2 and Influenza A/B Reagent assay from [employer], which has received Emergency Use Authori zation(EUA) by the U.S. Food and Drug Administration . Fact sheets for this Emergency Use Autho rization (EUA) assay can be found at the following link s: For Healthcare Providers: https://www.fda.gov/media/914042/downloa d For Patients: https://www.fda.gov/media/635676/downloa d Infl A/B, SARS CoV-2, PCR, Source Swab, Nasopharynx 10/12/2021 2:03 PM CDT STMA Specimen Anatomical Collection Method Collection Time Receive d Time (Source) Location / / Volume Laterality Varies 10/12/2021 1:55 PM 2 2:03 (Nasopharynx) CDT PM CDT Nick Frias M.D. LAB MICROBIOLOGY - GENERAL O RDERABLES Performing Organization Address City/[facility]/ZIP Code Phon e Number [facility] - [address] [place] [address] [address] [place] [address] [facility] [address] [facility] ECG 12 Lead (10/12/2021 1:41 PM CDT) P athologist Signature Ventricular Rate 92 BPM MUSE ECG/Min SD Interval 142 ms MUSE QRSD Interval 84 ms MUSE QT Interval 352 ms MUSE QTC Interval 435 ms MUSE P [place] 80 degrees MUSE R [place] 48 degrees MUSE T Wave [place] 69 degrees MUSE Specimen Anatomical Collection Method Collection Time Receive d Time (Source) Location / / Volume Laterality 10/12/2021 1:41 PM 2 1:43 CDT PM CDT Impressions MUSE - 10/12/2021 1:43 PM CDT Normal sinus rhythm Normal ECG When compared with ECG of 24-MAY-2021 17 :43, Vent. rate has increased BY ??34 BPM Reviewed by SHERYL Galeano Narrative This result has an attachment that is no t available. Procedure Note Siva Garcia M.D., Ph.D. - 2 IMPRESSION: Normal sinus rhythm Normal ECG When compared with ECG of 24-MAY-2021 17 :43, Vent. rate has increased BY 34 BPM Reviewed by SHERYL Galeano Nick Frias M.D. 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) Bipolar I Disorder (HCC) Cirrhosis Cryptogenic (HCC) Hyponatremia Immunodeficiency Due To Drugs (HCC) Rhinosinusitis Chronic Personal History Of Infectious And Octavio itic Disease (COVID-19) Hyperglycemia Chronic Cough Bronchiolitis Shortness Of Breath Macrocytosis Lymphopenia documented in this encounter Admitting Diagnoses Diagnosis Pneumonia documented in this encounter Administered Medications Inactive Administered Medications - up to 3 most recent administrations Medication Order MAR Action Action Date Dose Rate Site aspirin chewable tablet 81 mg Given 10/16/2021 8:02 AM CDT 81 mg 81 mg, oral, Daily, First dose on 10/13/21 at 0900 Given 10/15/2021 8:05 AM CDT 81 mg Given 10/14/2021 9:18 AM CDT 81 mg atorvastatin tablet 10 mg (LIPITOR) Given 10/16/2021 8:03 AM CDT 10 mg 10 mg, oral, Daily, First dose on 10/13/21 at 0900 Given 10/15/2021 1:34 PM CDT 10 mg Given 10/14/2021 9:19 AM CDT 10 mg benzocaine-menthoL 15-3.6 mg per lozenge 1 Given 10/16 4:18 PM CDT 1 lozenge lozenge (CEPACOL) 1 lozenge, oral, As needed, sore throat, cough, Starting on Fri10/14/21 at 1839 Given 10/16/2021 7:59 AM CDT 1 lozenge Given 10/15/2021 6:39 PM CDT 1 lozenge bisacodyL suppository 10 mg (DULCOLAX) 10 mg, rectal, Daily PRN, constipation, Starting on Fri10/12/21 at 1742, Ordered sequence of administration: polyethylene glycol, then bisacodyl until BM achieved. budesonide 0.5 mg/2 mL nebulizer solution 0.5 Given 6:09 AM CDT 0.5 mg mg (PULMICORT) 0.5 mg, nasal, 2 times daily (RT), First dose (after last modification) on Fri10/13/21 at 0700, Rinse mouth with water after use to reduce aftertaste and incidence of candidiasis. Do not swallow. Given 10/15/2021 6:40 PM CDT 0.5 mg Given 10/15/2021 6:15 AM CDT 0.5 mg ceFEPIme 500 mg in NaCl 0.9% IVPB New Bag 10/16/2021 4:08 PM C DT 500 mg 110 mL/hr (MAXIPIME) 500 mg, intravenous, at 110 mL/hr, Administer over 30 Minutes, Daily before dinner, First dose on Fri10/12/21 at 1930, For 7 doses, Drug Monitoring Program: Pharmacist to adjust medication dosing based on indication and drug clearance factors., Indications: Respiratory tract infection, community acquired New Bag 10/15/2021 4:00 PM CDT 500 mg 110 mL/hr New Bag 10/14/2021 4:14 PM CDT 500 mg 110 mL/hr cefTRIAXone injection 1 g (ROCEPHIN) Given 10/12/2021 4:35 PM CDT 1 g 1 g, intravenous, Once, On Fri10/12/21 at 1618, For 1 dose, [place] IV push over 3 minutes., Drug Monitoring Program: Pharmacist to adjust medication dosing based on indication and drug clearance factors., Indications: Respiratory tract infection, community acquired doxycycline in NaCl 0.9% 100 ML New Bag 10/12/2021 4:39 PM CDT 100 mg 100 mL/hr IVPB (Mini-Bag Plus) 100 mg (VIBRAMYCIN) 100 mg, intravenous, at 100 mL/hr, Administer over 60 Minutes, Once, On Fri10/12/21 at 1618, For 1 dose, Mini-Bag Plus bag, Indications: Respiratory tract infection, community acquired doxycycline monohydrate tablet 100 mg (A DOXA) Given 10/14/2021 9:19 AM CDT 100 mg 100 mg, oral, 2 times daily, First dose on Fri10/12/21 at 2100, Indications: Respiratory tract infection, community acquired Given 10/13/2021 10:00 PM CDT 100 mg Given 10/13/2021 8:42 AM CDT 100 mg epoetin michelle-epbx injection 9,000 Units Given 10/16/19 11:51 AM CDT 9,000 Units (RETACRIT) 9,000 Units, intravenous, Once, On Fri10/15/21 at 1100, For 1 dose, Dialysis, Indications: ESRD on Dialysis fluticasone furoate-vilanteroL 100-25 Given 10/14/2021 9:23 AM C DT 1 puff mcg/actuation inhaler 1 puff (BREO ELLIPTA DISKUS) 1 puff, inhalation, Daily (RT), First dose on 10/13/21 at 0800, fluticasone/vilanterol diskus 100/25 mcg was interchanged for Budesonide/Formoterol Given 10/13/2021 8:41 AM CDT 1 puff fluticasone propionate 50 mcg/actuation Given 10/16/2021 8:02 AM CDT 2 sprays nasal spray 2 spray (FLONASE) 2 spray, each nostril, Daily, First dose on 10/13/21 at 0900, fluticasone propionate intranasal 50 mcg/actuation was interchanged for fluticasone furoate intranasal Given 10/15/2021 8:08 AM CDT 2 sprays Given 10/14/2021 9:23 AM CDT 2 sprays heparin (porcine) 1,000 unit/mL Given 10/15/2021 9:11 AM CDT 2,0 00 Units injection 2,000 Units 2,000 Units, intravenous, Once in dialysis, On Fri10/15/21 at 0845, For 1 dose, Dialysis, Heparin (during dialysis) Loading dose heparin (porcine) 1,000 Started During 10/15/2021 9:10 AM 1,000 Uni ts/hr 1 mL/hr unit/mL injection Downtime CDT 1,000 Units/hr (1 mL/hr), intravenous, Continuous, Starting on Fri10/15/21 at 0845, Dialysis, Heparin (during dialysis) maintenance dose heparin (porcine) Given 10/16/2021 6:09 AM CDT 5,000 Units Left Lower Abdomen injection 5,000 Units 5,000 Units, subcutaneous, Every 8 hours scheduled, First dose on Fri10/12/21 at 2200 Given 10/15/2021 9:28 PM CDT 5,000 Units Left Lower Abdomen Given 10/15/2021 1:34 PM CDT 5,000 Units Left Upper Abdomen insulin aspart U-100 Given 10/13/2021 8:33 AM CDT 4 Units Left Lower Abdomen injection 0-13 Units (NovoLOG FlexPen) 0-13 Units, subcutaneous, 3 times daily, First dose on 10/13/21 at 0800, Insulin Scale: Moderate Correction Scale, 140 - 179: 2 units, 180 - 219: 4 units, 220 - 259: 6 units, 260 - 299: 8 units, 300 - 339: 10 units, 340 - 379: 12 units, 380 - 399: 13 units, Greater than 399: Call service writing Insulin orders insulin aspart U-100 Given 10/14/2021 5:03 PM CDT 10 Units Left Lower Abdomen injection 0-13 Units (NovoLOG FlexPen) 0-13 Units, subcutaneous, 3 times daily, First dose (after last modification) on Fri10/13/21 at 1200, Insulin Scale: Moderate Correction Scale, 140 - 179: 2 units, 180 - 219: 4 units, 220 - 259: 6 units, 260 - 299: 8 units, 300 - 339: 10 units, 340 - 379: 12 units, 380 - 399: 13 units, Greater than 399: Call service writing Insulin orders Given 10/14/2021 9:22 AM CDT 2 Units Left Lower Abdomen Given 10/13/2021 5:07 PM CDT 10 Units Left Lower Abdomen insulin aspart U-100 Given 10/15/2021 5:39 PM CDT 2 Units Left Lower Abdomen injection 0-13 Units (NovoLOG FlexPen) 0-13 Units, subcutaneous, 3 times daily, First dose (after last modification) on Fri10/15/21 at 1200, Insulin Scale: Individualized Correction Scale, 140 - 179: 0, 180-219: 2, 220-259: 4, 260-299: 6, 300-339: 8, 340-379: 10, 380-399: 12, Greater than 399: Call service writing Insulin orders insulin aspart U-100 Given 10/16/2021 4:11 PM CDT 2 Units Left Upper Abdomen injection 0-13 Units (NovoLOG FlexPen) 0-13 Units, subcutaneous, 2 times daily before breakfast and dinner, First dose (after last modification) on Fri10/16/21 at 1600, Insulin Scale: Individualized Correction Scale, 140 - 179: 0, 180-219: 2, 220-259: 4, 260-299: 6, 300-339: 8, 340-379: 10, 380-399: 12, Greater than 399: Call service writing Insulin orders insulin aspart U-100 Given 10/12/2021 6:57 PM CDT 4 Units Left Lower Abdomen injection 0-7 Units (NovoLOG FlexPen) 0-7 Units, subcutaneous, 3 times daily, First dose on Fri10/12/21 at 1845, Insulin Scale: Mild Correction Scale, 180 - 219: 2 units, 220 - 259: 3 units, 260 - 299: 4 units, 300 - 339: 5 units, 340 - 379: 6 units, 380 - 399: 7 units, Greater than 399: Call service writing Insulin orders insulin aspart U-100 Given 10/13/2021 10:40 PM CDT 4 Units Left Lower Abdomen injection 4 Units (NovoLOG FlexPen) 4 Units, subcutaneous, Once, On Fri10/13/21 at 2230, For 1 dose insulin aspart U-100 Given 10/15/2021 9:28 PM CDT 4 Units Left Lower Abdomen injection 4 Units (NovoLOG FlexPen) 4 Units, subcutaneous, Once, On Fri10/15/21 at 2045, For 1 dose insulin aspart U-100 Given 10/12/2021 4:31 PM CDT 5 Units Right Lower Abdomen injection 5 Units (NovoLOG) 5 Units, subcutaneous, Once, On Fri10/12/21 at 1614, For 1 dose insulin NPH injection 14 Given 10/13/2021 8:38 AM CDT 14 Units Left Lower Abdomen Units 14 Units, subcutaneous, Every morning, First dose on Fri10/13/21 at 0900 insulin NPH injection 20 Given 10/14/2021 9:24 AM CDT 20 Units Left Upper Abdomen Units 20 Units, subcutaneous, Every morning, First dose (after last modification) on Fri10/14/21 at 0900 insulin NPH injection 20 Given 10/16/2021 8:01 AM CDT 20 Units Right Upper Abdomen Units 20 Units, subcutaneous, Every morning, First dose (after last modification) on Fri10/16/21 at 0900 insulin NPH injection 25 Given 10/15/2021 8:09 AM CDT 25 Units Right Upper Abdomen Units 25 Units, subcutaneous, Every morning, First dose (after last modification) on 10/15/21 at 0900 insulin NPH injection 5 Given 10/14/2021 10:33 AM CDT 5 Units Left Lower Abdomen Units 5 Units, subcutaneous, Once, On Fri10/14/21 at 1015, For 1 dose ipratropium-albuteroL 0.5-2.5 mg/3 mL nebulizer Given 10/14/2021 1:20 PM CDT 3 mL solution 3 mL (DUONEB) 3 mL, nebulization, Every 6 hours scheduled (RT), First dose on Fri10/12/21 at 1900 Given 10/14/2021 7:08 AM CDT 3 mL Given 10/14/2021 1:06 AM CDT 3 mL ipratropium-albuteroL 0.5-2.5 mg/3 mL Given 10/16/2021 12:36 PM CDT 3 mL nebulizer solution 3 mL (DUONEB) 3 mL, nebulization, 4 times daily (RT), First dose (after last modification) on Fri10/14/21 at 1900 Given 10/16/2021 6:09 AM CDT 3 mL Given 10/15/2021 6:40 PM CDT 3 mL L.acidoph-Khadra-Bdot-S.therm tablet 1 Given 10/16/2021 4:18 PM CDT 1 tablet tablet (BACID) 1 tablet, oral, 2 times daily with meals, First dose on Fri10/13/21 at 0800 Given 10/16/2021 8:02 AM CDT 1 tablet Given 10/15/2021 5:39 PM CDT 1 tablet lamoTRIgine tablet 200 mg (LaMICtaL) Given 10/16/2021 8:02 AM CDT 200 mg 200 mg, oral, 2 times daily, First dose on Fri10/12/21 at 2100 Given 10/15/2021 8:40 PM CDT 200 mg Given 10/15/2021 8:05 AM CDT 200 mg levothyroxine tablet 25 mcg (SYNTHROID, Given 10/16/2021 6:09 AM CDT 25 mcg LEVOTHROID) 25 mcg, oral, Daily before breakfast, First dose on Fri10/13/21 at 0700 Given 10/15/2021 6:15 AM CDT 25 mcg Given 10/14/2021 7:08 AM CDT 25 mcg lidocaine-prilocaine 2.5-2.5 % cream 1 Given 7:41 AM CDT 1 application application (EMLA) 1 application, topical, As needed, mild pain or score 1-3 of 10, to fistula 30 min prior to dialysis, Starting on 10/14/21 at 1333 loratadine tablet 10 mg (CLARITIN) Given 10/15/2021 8:41 PM CDT 10 mg 10 mg, oral, Daily at bedtime, First dose on Fri10/12/21 at 2100 Given 10/14/2021 9:22 PM CDT 10 mg Given 10/13/2021 10:00 PM CDT 10 mg melatonin tablet 5 mg Given 10/15/2021 9:38 PM CDT 5 mg 5 mg, oral, Bedtime PRN, sleep, Starting on 10/14/21 at 0050 Given 10/14/2021 9:22 PM CDT 5 mg Given 10/14/2021 1:06 AM CDT 5 mg montelukast tablet 10 mg (SINGULAIR) Given 10/15/2021 8:41 PM CDT 10 mg 10 mg, oral, Daily at bedtime, First dose on Fri10/12/21 at 2100 Given 10/14/2021 9:22 PM CDT 10 mg Given 10/13/2021 10:00 PM CDT 10 mg multivitamin renal failure 100-1 mg 1 Given 10/16/2021 4:18 PM C DT 1 tablet tablet (DIALYVITE) 1 tablet, oral, Daily with dinner, First dose on 10/13/21 at 1700, give after dialysis on dialysis days Given 10/15/2021 5:39 PM CDT 1 tablet Given 10/14/2021 5:06 PM CDT 1 tablet mycophenolate capsule 250 mg (CELLCEPT) Given 10/16/2021 8:03 AM CDT 250 mg 250 mg, oral, 2 times daily, First dose (after last modification) on 10/13/21 at 2100, Swallow whole. Do NOT crush, chew or open capsule., Continuation of fikzs-od-dcarexyuy therapy? Yes Given 10/15/2021 8:41 PM CDT 250 mg Given 10/15/2021 8:05 AM CDT 250 mg mycophenolate capsule 500 mg (CELLCEPT) Given 10/13/2021 8:42 AM CDT 250 mg 500 mg, oral, 2 times daily - immunosuppression, First dose on Fri10/12/21 at 2000, Swallow whole. Do NOT crush, chew or open capsule., Continuation of mmqie-ap-nsmmaiqcg therapy? Yes Given 10/12/2021 9:00 PM CDT 250 mg NIFEdipine XL 24 hr tablet 30 mg (PROCARDIA Given 10/16/2021 8:0 3 AM CDT 30 mg XL) 30 mg, oral, Daily, First dose on 10/13/21 at 0900, Swallow whole. Do NOT crush, chew, or split tablet. Given 10/15/2021 1:34 PM CDT 30 mg Given 10/14/2021 9:19 AM CDT 30 mg polyethylene glycol powder packet 17 g ( MIRALAX) 17 g, oral, Daily PRN, constipation, Starting on Fri at 1742, Ordered sequence of administration: polyethylene glycol, then bisacodyl until BM achieved. Avoid mixing with starch-based thickened liquids. predniSONE tablet 10 mg (DELTASONE) 10 mg, oral, Daily, First dose on 10/27/21 at 0900, For 14 doses predniSONE tablet 20 mg (DELTASONE) Given 10/13/2021 8:42 AM CDT 20 mg 20 mg, oral, Daily, First dose on Fri10/13/21 at 0900, For 13 doses predniSONE tablet 20 mg (DELTASONE) Given 10/16/2021 8:02 AM CDT 20 mg 20 mg, oral, Daily, First dose (after last modification) on Fri10/14/21 at 0900, For 13 doses Given 10/15/2021 8:04 AM CDT 20 mg Given 10/14/2021 9:19 AM CDT 20 mg predniSONE tablet 5 mg (DELTASONE) 5 mg, oral, Daily, First dose on 11/24/21 at 0900 predniSONE tablet 7.5 mg (DELTASONE) 7.5 mg, oral, Daily, First dose on 11/10/21 at 0900 , For 14 doses sodium chloride 0.9 % flush 1-250 mL Given 10/15/2021 9:09 AM CDT 250 mL 1-250 mL, intravenous, As needed, line care, For priming and rinse back post dialysis, Starting on 10/15/21 at 0841, Dialysis, Dialysis order only. sodium chloride-sodium bicarbonate Given 10/16/2021 8:05 AM CDT 1 application nasal rinse 1 application (NEILMED SINUS RINSE) 1 application, each nostril, 2 times daily (RT), First dose on 10/13/21 at 0700, With budesonide nasal. Given 10/15/2021 6:40 PM CDT 1 application Given 10/15/2021 6:50 AM CDT 1 application sulfamethoxazole-trimethoprim 400-80 mg per Given 09/22 8:02 AM CDT 1 tablet tablet 1 tablet (BACTRIM,SEPTRA) 1 tablet, oral, Daily, First dose on Fri10/14/21 at 0900, Drug Monitoring Program: Pharmacist to adjust medication dosing based on indication and drug clearance factors., Indications: Prophylaxis, medical Given 10/15/2021 8:05 AM CDT 1 tablet Given 10/14/2021 9:18 AM CDT 1 tablet tacrolimus capsule 0.5 mg (PROGRAF) Given 10/16/2021 8:03 AM CDT 0.5 mg 0.5 mg, oral, 2 times daily, First dose (after last modification) on 10/13/21 at 2100 Given 10/15/2021 8:40 PM CDT 0.5 mg Given 10/15/2021 8:05 AM CDT 0.5 mg tacrolimus capsule 1 mg (PROGRAF) Given 10/13/2021 8:41 AM CDT 1 mg 1 mg, oral, 2 times daily, First dose on Fri10/12/21 at 2100 Given 10/12/2021 9:54 PM CDT 1 mg torsemide tablet 30 mg (DEMADEX) Given 10/16/2021 8:02 AM CDT 30 mg 30 mg, oral, Daily, First dose on 10/13/21 at 1045 Given 10/15/2021 1:34 PM CDT 30 mg Given 10/14/2021 9:19 AM CDT 30 mg valGANciclovir tablet 450 mg (VALCYTE) Given 10/14/2021 5:06 PM CDT 450 mg 450 mg, oral, Every 48 hours, First dose (after last modification) on 10/14/21 at 1800, Swallow whole. Do NOT crush, chew, or split tablet., Drug Monitoring Program: Pharmacist to adjust medication dosing based on indication and drug clearance factors., Indications: CMV vancomycin capsule 125 mg (VANCOCIN) Given 10/16/2021 8:03 AM CDT 125 mg 125 mg, oral, 2 times daily, First dose on 10/13/21 at 2100, Drug Monitoring Program: Pharmacist to adjust medication dosing based on indication and drug clearance factors., Indications: Prophylaxis, medical Given 10/15/2021 8:41 PM CDT 125 mg Given 10/15/2021 8:05 AM CDT 125 mg documented in this encounter Active and Recently Administered Medications Times are shown in CDT. Scheduled Medication Order 10/14/2021 10/15/2021 10/16/2021 aspirin chewable tablet 81 mg 0918 (Given - Provider: J Carlos Horn R.N.) 0805 (Given - Provider: Chastity Nichols R.N.) 0802 (Given - Provider: Chastity Nichols R.N.) 81 mg, oral, Daily, First dose on 10/13/21 at 0900 atorvastatin tablet 10 mg (LIPITOR) 0919 (Given - Prov ider: Liana Horn R.N.) 1334 (Given - Provider: Chastity Nichols R.N.) 0803 (Given - Provider: Chastity Nichols R.N.) 10 mg, oral, Daily, First dose on 10/13/21 at 0900 budesonide 0.5 mg/2 mL nebulizer solution 0.5 mg (PULM ICORT) 0708 (Given - Provider: Mary Lou Mahajan R.N.)1852 (Given - Provider: Liana Horn R.N.) 0615 (Given - Provider: Mary Lou Mahajan R.N.)1840 (Given - Provider: Chastity Nichols R.N.) 0609 (Given - Provider: Diana casanova RDemetriusNDemetrius) 0.5 mg, nasal, 2 times daily (RT), First dose (after last modification) on 10/13/21 at 0700, Rinse mouth with water after use to reduce aftertaste and incidence of candidiasis. Do not swallow. ceFEPIme 500 mg in NaCl 0.9% IVPB (MAXIPIME) 1614 (New Bag - Provider: Liana Horn R.N.) 1600 (New Bag - Provider: Chastity Nichols R.N.) 16 08 (New Bag - Provider: Chastity Nichols R.N.) 500 mg, intravenous, at 110 mL/hr, Admin ister over 30 Minutes, Daily before dinner, First dose on Fri10/12/21 at 1930, For 7 doses, Drug Monitoring Program: Pharmacist to adjust medication dosing based on indication and drug clearance factors ., Indications: Respiratory tract infection, community acquired doxycycline monohydrate tablet 100 mg (ADOXA) (CANCELE D) 0919 (Given - Provider: Liana Horn R.N.) 100 mg, oral, 2 times daily, First dose on Fri10/12/21 at 2100, Indications: Respiratory tract infection, community acquired epoetin michelle-epbx injection 9,000 Units (RETACRIT) (COMPLETE D) 1151 (Given - Provider: Giorgio Victoria R.N.) 9,000 Units, intravenous, Once, On Fri at 1100, For 1 dose, Dialysis, Indications: ESRD on Dialysis fluticasone furoate-vilanteroL 100-25 mc g/actuation inhaler 1 puff (BREO ELLIPTA DISKUS) (CANCELED) 09 (Given - Provider: Liana Horn R.N. - Comment: group cares) 1 puff, inhalation, Daily (RT), First do se on 10/13/21 at 0800, fluticasone/vilanterol diskus 100/25 mcg was interchanged for Budesonide/Formoterol fluticasone propionate 50 mcg/actuation nasal spray 2 spray (FLONASE) 09 (Given - Provider: Liana Horn R.N.) 0808 (Given - Provider: Chastity Nichols R.N.) 0802 (Given - Provider: Chastity becerril RDemetriusNDemetrius) 2 spray, each nostril, Daily, First dose on 10/13/21 at 0900, fluticasone propionate intranasal 50 mcg/actuation was interchanged for fluticasone furoate intranasal heparin (porcine) 1,000 unit/mL injection 2,000 Units (COMPL ETED) 0911 (Given - Provider: Giorgio Victoria RDemetriusNDemetrius) 2,000 Units, intravenous, Once in dialys is, On Fri10/15/21 at 0845, For 1 dose, Dialysis, Heparin (during dialysis) Loading dose heparin (porcine) injection 5,000 Units 0600 (Given - Provider: Mary Lou Mahajan RSteve)1321 (Given - Provider: Dorene ShieldsN.)2125 (Given - Provider: Mary Lou Mahajan R.N.) 0615 (Given - Provider: Freeman AceNDemetrius)1334 (Given - Provider: Chastity Nichols R.NDemetrius)2128 (Given - Provider: Mayra Schwab RDemetriusNDemetrius) 0609 (Given - Provider: Diana casanova R.NDemetrius)1433 (Not Given - Provider: Chastity Nichols RSteve - Reason: Patient/family refused - Comment: Pt going to IR and then plans to d/c.) 5,000 Units, subcutaneous, Every 8 hours scheduled, First dose on Fri10/12/21 at 2200 insulin aspart U-100 injection 0-13 Units (NovoLOG Fle xPen) (CANCELED) 0922 (Given - Provider: Liana Horn R.N. - Comment: 170, group cares)1321 (Not Given - Provider: Liana Horn R.N. - Reason: Order parameters not met)1703 (Given - Provider: Liana Horn R.N. - Comment: 319) 0741 (Not Given - Provider: Chastity Nichols R.N. - Reason: Order parameters not met) 0-13 Units, subcutaneous, 3 times daily, First dose (after last modification) on 10/13/21 at 1200, Insulin Scale: Moderate Correction Scale, 140 - 179: 2 units, 180 - 219: 4 units, 220 - 259: 6 units , 260 - 299: 8 units, 300 - 339: 10 unit s, 340 - 379: 12 units, 380 - 399: 13 units, Greater than 399: Call service writing Insulin orders insulin aspart U-100 injection 0-13 Units (NovoLOG FlexPen) (CANCELED) 1304 (Not Given - Provider: Chastity Nichols R.N. - Reason: Order parameters not met - Comment: rmg 165)1739 (Given - Provider: Chastity Nichols R.N. - Comment: RMG 194) 0700 (Not Given - Provider: Chastity sequeira R.N. - Reason: Order parameters not met - Comment: RMG 99) 0-13 Units, subcutaneous, 3 times daily, First dose (after last modification) on Fri10/15/21 at 1200, Insulin Scale: Individualized Correction Scale, 140 - 179: 0, 180-219: 2, 220-259: 4, 260-299: 6, 30 0-339: 8, 340-379: 10, 380-399: 12, Grea ter than 399: Call service writing Insulin orders insulin aspart U-100 injection 0-13 Units (NovoLOG FlexPen) 1611 (Given - Provider: Chastity Nichols, R.N.) 0-13 Units, subcutaneous, 2 times daily before breakfast and dinner, First dose (after last modification) on Fri10/16/21 at 1600, Insulin Scale: Individualized Correction Scale, 140 - 179: 0, 180-219: 2 , 220-259: 4, 260-299: 6, 300-339: 8, 34 0-379: 10, 380-399: 12, Greater than 399: Call service writing Insulin orders insulin aspart U-100 injection 4 Units (NovoLOG FlexPen) (CO MPLETED) 2127 (Given - Provider: Mayra Schwab, R.N.) 4 Units, subcutaneous, Once, On Fri10/15/21 at 2045, For 1 dose insulin NPH injection 20 Units (CANCELED) 923 (Given - Provider: Liana Horn R.N.) 20 Units, subcutaneous, Every morning, F irst dose (after last modification) on Fri10/14/21 at 0900 insulin NPH injection 20 Units 0 801 (Given - Provider: Chastity Nichols R.N.) 20 Units, subcutaneous, Every morning, F irst dose (after last modification) on Fri10/16/21 at 0900 insulin NPH injection 25 Units (CANCELED) 0809 (Given - Provider: Chastity Nichols R.N.) 25 Units, subcutaneous, Every morning, F irst dose (after last modification) on Fri10/15/21 at 0900 insulin NPH injection 5 Units (COMPLETED) 1033 (Given - Provider: Liana Horn R.N.) 5 Units, subcutaneous, Once, On Fri10/14/21 at 1015, For 1 dose ipratropium-albuteroL 0.5-2.5 mg/3 mL ne bulizer solution 3 mL (DUONEB) (CANCELED) 0106 (Given - Provider: Freeman Ace)0708 (Given - Provider: Mary Lou Mahajan R.N.)1320 (Given - Provider: Liana Horn R.N.) 3 mL, nebulization, Every 6 hours schedu led (RT), First dose on Fri10/12/21 at 1900 ipratropium-albuteroL 0.5-2.5 mg/3 mL nebulizer soluti on 3 mL (DUONEB) 1852 (Given - Provider: Liana Horn R.N.) 0615 (Given - Provider: Mary Lou Mahajan R.N.)1015 (Not Given - Provider: Chastity Nichols R.N. - Reason: Patient not available)1334 (Given - Provider: Chastity Nichols R.N.)1840 (Given - Provider: Chastity Nichols R.N.) 0609 (Given - Provider: Diana Costello R.N.)1236 (Given - Provider: Chastity Nichols R.N. - Comment: pt request)1618 (Not Given - Provider: Chastity Nichols R.N. - Reason: Patient/family refused) 3 mL, nebulization, 4 times daily (RT), First dose (after last modification) on Fri10/14/21 at 1900 LDemetriusacidoph-Lolivia-B.bif-S.therm tablet 1 tablet (BACID) 0919 (Given - Provider: Liana Horn R.N. - Comment: group cares)1614 (Given - Provider: Liana Horn R.N.) 0804 (Given - Provider: Chastity becerril RDemetriusNDemetrius)1739 (Given - Provider: Chastity Nichols R.N.) 0802 (Given - Provider: Chastity becerril RDemetriusNDemetrius)1618 (Given - Provider: Chastity Nichols R.N.) 1 tablet, oral, 2 times daily with meals, First dose on 10/13 at 0800 lamoTRIgine tablet 200 mg (LaMICtaL) 0918 (Given - Pro vider: Liana Horn R.N.)212 (Given - Provider: Mary Lou Mahajan R.N.) 0805 (Given - Provider: Chastity Nichols R.N.)2039 (Given - Provider: Mayra Schwab R.N.) 0802 (Given - Provider: Chastity Nichols R.N.) 200 mg, oral, 2 times daily, First dose on Fri10/12/21 at 2100 levothyroxine tablet 25 mcg (SYNTHROID, LEVOTHROID) 07 08 (Given - Provider: Mary Lou Mahajan R.N.) 0615 (Given - Provider: Mary Lou Mahajan R.N.) 0609 (Giv en - Provider: Diana Costello R.N.) 25 mcg, oral, Daily before breakfast, First dose on Fri10/13/21 at 0700 lidocaine 10 mg/mL (1 %) injection 10 mL (XYLOCAINE) 1515 (Due) 10 mL, intradermal, Once, On Fri10/16/21 at 1515, For 1 dose, Intraprocedure (RAD) loratadine tablet 10 mg (CLARITIN) 2121 (Given - Provider: Bashir Mahajan R.N.) 2040 (Given - Provider: Mayra Schwab R.N.) 10 mg, oral, Daily at bedtime, First dose on Fri10/12/21 at 2100 montelukast tablet 10 mg (SINGULAIR) 2121 (Given - Pro vider: Mary Lou Mahajan R.N.) 2040 (Given - Provider: Mayra Schwab R.N.) 10 mg, oral, Daily at bedtime, First dose on Fri10/12/21 at 2100 multivitamin renal failure 100-1 mg 1 tablet (DIALYVIT E) 1706 (Given - Provider: Liana Horn R.N.) 1739 (Given - Provider: Chastity Nichols R.N.) 1618 (Given - Provider: Chastity Nichols R.N.) 1 tablet, oral, Daily with dinner, First dose on 10/13/21 at 1700, give after dialysis on dialysis days mycophenolate capsule 250 mg (CELLCEPT) 917 (Given - Provider: Liana Horn R.N.)2121 (Given - Provider: Mary Lou Mahajan R.N.) 804 (Given - Provider: Chastity Nichols R.N.)2040 (Given - Provider: Mayra Schwab RSteve) 0803 (Given - Provider: Chastity becerril RDemetriusNDemetrius) 250 mg, oral, 2 times daily, First dose (after last modification) on 10/13/21 at 2100, Swallow whole. Do NOT crush, chew or open capsule., Continuation of ujkcx-nn-jlzlnwtlx therapy? Yes NIFEdipine XL 24 hr tablet 30 mg (PROCARDIA XL) 918 ( Given - Provider: Liana Horn R.N.) 1333 (Given - Provider: Chastity Nichols RSteve) 0803 (Given - Provider: Chastity Nichols R.N.) 30 mg, oral, Daily, First dose on Sat at 0900, Swallow whole. Do NOT crush, chew, or split tablet. predniSONE tablet 10 mg (DELTASONE)(Linked Group 1) 10 mg, oral, Daily, First dose on 10/27/21 at 0900, For 14 dos es predniSONE tablet 20 mg (DELTASONE) 918 (Given - Prov ider: Liana Horn R.N.) 0804 (Given - Provider: Chastity Nichols R.N.) 0802 (Given - Provider: Chastity Nichols R.N.) 20 mg, oral, Daily, First dose (after la st modification) on 10/14/21 at 0900, For 13 doses predniSONE tablet 5 mg (DELTASONE)(Linked Group 1) 5 mg, oral, Daily, First dose on 11/24/21 at 0900 predniSONE tablet 7.5 mg (DELTASONE)(Linked Group 1) 7.5 mg, oral, Daily, First dose on 11/10/21 at 0900, For 14 d oses sodium chloride-sodium bicarbonate nasal rinse 1 application (NEILMED SINUS RINSE) 0708 (Given - Provider: Freeman Ace)1999 (Given - Provider: Mary Lou Mahajan R.N.) 0650 (Given - Provider: Freeman Ace)184 (Given - Provider: Chastity Nichols R.N.) 08 (Given - Provider: Chastity becerril R.N. - Comment: per pt request) 1 application, each nostril, 2 times alexandra ly (RT), First dose on 10/13/21 at 0700, With budesonide nasal. sulfamethoxazole-trimethoprim 400-80 mg per tablet 1 t ablet (BACTRIM,SEPTRA) 0918 (Given - Provider: Liana Horn R.N.) 0805 (Given - Provider: Chastity Nichols R.N.) 0802 (Given - Provider: Chastity becerril RDemetriusNDemetrius) 1 tablet, oral, Daily, First dose on 10/14/21 at 0900, Drug Monitoring Program: Pharmacist to adjust medication dosing based on indication and drug clearance factors., Indications: Prophylaxis, medical tacrolimus capsule 0.5 mg (PROGRAF) 0946 (Given - Prov ider: Liana Horn R.N.)2121 (Given - Provider: Mary Lou Mahajan R.N.) 0805 (Given - Provider: Chastity Nichols R.N.)2039 (Given - Provider: Mayra Schwab R.N.) 0803 (Given - Provider: Chastity Nichols R.N.) 0.5 mg, oral, 2 times daily, First dose (after last modification) on 10/13/21 at 2100 torsemide tablet 30 mg (DEMADEX) 0919 (Given - Provide r: Liana Horn R.N.) 1334 (Given - Provider: Chastity Nichols R.N.) 0802 (Given - Provider: Chastity Nichols R.N.) 30 mg, oral, Daily, First dose on 10/13/21 at 1045 valGANciclovir tablet 450 mg (VALCYTE) 1706 (Given - P rovider: Liana Horn R.N.) 450 mg, oral, Every 48 hours, First dose (after last modification) on 10/14/21 at 1800, Swallow whole. Do NOT crush, chew, or split tablet., Drug Monitoring Program: Pharmacist to adjust medication d osing based on indication and drug clearance factors., Indicatio ns: CMV vancomycin capsule 125 mg (VANCOCIN) (CANCELED) 0918 ( Given - Provider: Liana Horn R.N.)2121 (Given - Provider: Mary Lou Mahajan RSteve) 0805 (Given - Provider: Chastity Nichols R.N.)2040 (Given - Provider: Mayra Schwab R.N.) 0803 (Given - Provider: Chastity becerril RDemetriusNDemetrius) 125 mg, oral, 2 times daily, First dose on 10/13/21 at 2100, Drug Monitoring Program: Pharmacist to adjust medication dosing based on indication and drug clearance factors., Indications: Prophylaxis, medical Continuous Medication Order 10/14/2021 10/15/2021 10/16/2021 heparin (porcine) 1,000 unit/mL injection (CANCELED) 0910 (Started During Downtime - Provider: Giorgio Victoria R.N.) 1,000 Units/hr (1 mL/hr), intravenous, C ontinuous, Starting on 10/15/21 at 0845, Dialysis, Heparin (during dialysis) maintenance dose PRN Medication Order 10/14/2021 10/15/2021 10/16/2021 benzocaine-menthoL 15-3.6 mg per lozenge 1 lozenge (CE PACOL) 1999 (Given - Provider: Mary Lou Mahajan R.N.) 0615 (Given - Provider: Freeman Ace)1742 (Given - Provider: Chastity Nichols R.N.)1839 (Given - Provider: Chastity Nichols R.N.) 0759 (Given - Provider: Chastity becerril R.NDemetrius)1618 (Given - Provider: Chastity Nichols R.N.) 1 lozenge, oral, As needed, sore throat, cough, Starti ng on 10/14/21 at 1839 bisacodyL suppository 10 mg (DULCOLAX) 10 mg, rectal, Daily PRN, constipation, Starting on Fri10/12/21 at 1742, Ordered sequence of administration: polyethylene glycol, then bisacodyl until BM achieved. lidocaine-prilocaine 2.5-2.5 % cream 1 application (EMLA) 0741 (Given - Provider: Chastity Nichols R.N.) 1 application, topical, As needed, mild pain or score 1-3 of 10, to fistula 30 min prior to dialysis, Starting on 10/14/21 at 1333 melatonin tablet 5 mg 0106 (Given - Provider: Nadege Mahajan RDemetriusNDemetrius)2121 (Given - Provider: Mary Lou Mahajan R.N.) 2137 (Given - Provider: Mayra cuevas R.NDemetrius) 5 mg, oral, Bedtime PRN, sleep, Starting on 10/14/21 at 0050 polyethylene glycol powder packet 17 g (MIRALAX) 17 g, oral, Daily PRN, constipation, Sta rting on Fri10/12/21 at 1742, Ordered sequence of administration: polyethylene glycol, then bisacodyl until BM achieved. Avoid mixing with starch-based thickened liquids. sodium chloride 0.9 % flush 1-250 mL (CANCELED) 0909 (Given - Provider: Giorgio Victoria R.N. - Comment: For rime and rinse back) 1-250 mL, intravenous, As needed, line c are, For priming and rinse back post dialysis, Starting on 10/15/21 at 0841, Dialysis, Dialysis order only. Linked Groups Order Group 1: predniSONE tablet 10 mg (DELTASONE)Jump to med 10 mg, oral, Daily, First dose on 10/27/21 at 0900, For 14 doses Followed by predniSONE tablet 7.5 mg (DELTASONE)Jump to med 7.5 mg, oral, Daily, First dose on Sat at 0900, For 14 doses Followed by predniSONE tablet 5 mg (DELTASONE)Jump to med 5 mg, oral, Daily, First dose on Sat 11/24 at 0900 documented in this encounter Additional Health Concerns Infection Onset Date Last Indicated Resolved Time COVID19 Pending 10/12/2021 10/12/2021 10/12/2021 2:28 PM CDT COVID19 Pending 10/12/2021 10/12/2021 10/13/2021 12:34 AM CDT Assessment Noted Time PHQ-9 Depression Total Score: 4 11/28/2020 10:17 AM CD T documented as of this encounter Care Teams Parts Administrator Relationship Specialty Start Date End Date Elsewhere, Pcp PCP - General Family Medicine 07/29/17 [facility] - Laboratory Medicine 04/12/[address] [address] documented as of this encounter
--- OUTSIDE RECORDS SUMMARY | 2022-04-13 12:03 | XMS_ITS | Encounter Summary ---
:1955 Author Organization [facility] Address [address] [place] [address] Care Team Providers Name Role Phone Elsewhere, Pcp Primary Care Provider Unavailable Encounter Details Date Type Department Care Team Description 10/10/2021 Hospital Encounter Department of Trung Plasencia Liver (HCC); Laboratory Medicine Edmundo Stern, Medicati on Therapy Assisted Not Anticoagulant; in Jimmie Blake M.S. Colitis Cytomegalovirus (HCC) [address] [address] [place], [place] [phone] (Work) [phone] Social History Tobacco Use Types Packs/Day Years [...] or relatives? 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 Give once every 28 days. loratadine (CLARITIN) 10 Take 10 mg by [...] hours as needed for nausea or vomiting. traZODone (DESYREL) 100 Take 1 tablet (100 90 tablet 3 12/202108/27/2022 mg tablet mg total) by mouth at bedtime as needed for sleep. acetaminophen (TYLENOL) Take 1 tablet (500 0 06/202110/12/2021 500 mg tablet mg total) by mouth every 6 (six) hours as needed for pain. budesonide (PULMICORT) ADD 1 RESPULE TO 8 360 mL 11 07/3002/07/2022 0.5 mg/2 mL nebulizer OZ SALINE AND solution IRRIGATE EACH SIDE OF NOSE TWICE DAILY DIRECTED calcium carb/magnesium Take 2 tablets by 0 10/13/2021 oxid/D3 (CALCIUM mouth 2 (two) times MAGNESIUM + D ORAL) a day. Total of 700 mg of calcium, 350 mg of magnesium, and 400 IU of vitamin D ipratropium (ATROVENT) Administer 2 sprays 30 mL 01/2102/05/2022 21 mcg (0.03 %) nasal into each nostril 2 spray (two) times a day. upto 5 times daily as needed. Lactobacillus Take 1 capsule by 0 08/15/2021/2 08/2021 acidophilus capsule mouth 2 (two) times a day with meals. While taking antibiotics to help promote gut health. lamoTRIgine (LaMICtal) TAKE 1 TABLET BY 200 tablet 3 021 10/22/2021 200 mg tablet MOUTH TWICE DAILY levothyroxine Take 1 tablet (25 90 tablet 3 12/12/2020 06/0 12/2021 (SYNTHROID, LEVOTHROID) mcg total) by mouth 25 mcg every morning tabletIndications: before breakfast. Transplant Liver (HCC) lidocaine-prilocaine Apply 1 application 30 g 11 202102/07/2022 (EMLA) 2.5-2.5 % cream topically See Admin Instructions. 2 hours prior to dialysis. multivitamin tablet Take 1 tablet by 0 06/18/2013 10/12/2021 mouth daily. Maintenance mycophenolate (CELLCEPT) TAKE 1 TABLET BY 180 tablet 3 11/0610/11/2021 500 mg MOUTH TWICE DAILY tabletIndications: Transplant Liver (HCC) NIFEdipine XL (PROCARDIA TAKE 3 TABLETS(90 270 tablet 3 06/2310/16/2021 XL) 30 mg 24 hr MG) BY MOUTH DAILY tabletIndications: Hypertension And Chronic Kidney Disease Stage 4 ([facility]) oxyCODONE (ROXICODONE) 5 Take 1 tablet (5 mg 10 tablet 0 10/13/2021 mg immediate release total) by mouth tabletIndications: Acute every 4 (four) Pain hours as needed for severe pain or score 7-10 of 10 Indication: Acute Pain. predniSONE (DELTASONE) Take 1 tablet (10 250 tablet 3 202110/16/2021 10 mg tablet mg total) by mouth as directed. 40 mg for 2 weeks 20 mg for 2 weeks 10 mg for 2 weeks then back to 5 mg predniSONE (DELTASONE) 5 TAKE 1 TABLET(5 MG) 90 tablet 3 10/16/2021 mg tabletIndications: BY MOUTH DAILY Transplant Liver (HCC), Medication Therapy Assisted Not Anticoagulant tacrolimus (PROGRAF) 0.5 TAKE 2 CAPSULES BY 360 capsule 3 10/16/2021 mg capsuleIndications: MOUTH TWICE DAILY Transplant Liver (HCC), Medication Therapy Assisted Not Anticoagulant torsemide (DEMADEX) 10 Take 6 tablets (60 540 tablet 3 09/0510/16/2021 mg tablet mg total) by mouth daily. UNABLE TO FIND by nasal 0 10/12/2021 (alternating) route 2 (two) times a day. Azelastine 1mg to Sinus Rinse twice daily. Advanced RX valGANciclovir (VALCYTE) TAKE 1 TABLET BY 25 tablet 1 08/0810/13/2021 450 mg MOUTH 2 X PER WEEK. 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 documented as 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 [address] [place] [phone] 04/25/2022 Office Visit Otorhinolaryngology Dex Matta APRN, C.N.P., M.S.N. [address] [place] [phone] 05/08/2022 Appointment Laboratory Medicine Angélica Granger P.A.-C. [address] [place] [phone] 05/08/2022 Clinical Admitting/Central Communication Scheduling 05/10/2022 Appointment Radiology Jeremie Rose M.D. [address] [place] [phone] 05/10/2022 Comprehensive Visit Orthopedic Surgery Warner Graves M.D. [address] [place] [phone] 05/22/2022 Appointment Laboratory Medicine Angélica Granger P.A.-C. [address] [place] [address] [phone] 06/05/2022 Appointment Laboratory Medicine Angélica Granger P.A.-C. [address] [place] [phone] 06/19/2022 Appointment Laboratory Medicine Angélica Granger P.A.-C. [address] [place] [phone] 07/03/2022 Appointment Laboratory Medicine Angélica Granger P.A.-C. [address] [place] [phone] 07/17/2022 Appointment Laboratory Medicine Angélica Granger P.A.-C. [address] [place] [phone] 07/31/2022 Appointment Laboratory Medicine Angélica Granger P.A.-C. [address] [place] [phone] 08/14/2022 Appointment Laboratory Medicine Angélica Granger P.A.-C. [address] [place] [phone] 08/28/2022 Appointment Laboratory Medicine Angélica Granger P.A.-C. [address] [place] [phone] documented as of this encounter Procedures Procedure Name Priority Date/Time Associated Diagnosis Comme nts GLUCOSE, FASTING, S/P Routine 10/10/2021 9:36 Transplant Liver (HCC) Results for this AM CDT Medication Therapy procedure are in Assisted Not the results Anticoagulant section. Colitis Cytomegalovirus (HCC) CMV DNA DETECT/QUANT, Routine 10/10/2021 9:35 Transplant Liver (HCC) Results for this P AM CDT Medication Therapy procedure are in Assisted Not the results Anticoagulant section. Colitis Cytomegalovirus (HCC) TACROLIMUS LEVEL, B Routine 10/10/2021 9:35 Transplant L iver (HCC) Results for this AM CDT Medication Therapy procedure are in Metallurgy Laboratory Technician Not the results Anticoagulant section. Colitis Cytomegalovirus (HCC) CBC WITHOUT Routine 10/10/2021 9:35 Transplant Liver (HCC) Results for this DIFFERENTIAL, B AM CDT Medication Therapy proced ure are in Assisted Not the results Anticoagulant section. Colitis Cytomegalovirus (HCC) COMPREHENSIVE Routine 10/10/2021 9:35 Transplant Liver (HCC) Results for this METABOLIC PANEL, S/P AM CDT Medication Therapy p rocedure are in Metallurgy Laboratory Technician Not the results Anticoagulant section. Colitis Cytomegalovirus (HCC) documented in this encounter Results (ABNORMAL) Glucose, Fasting (10/10/2021 9:36 AM CDT) athologist Signature Glucose, P 278 (H) 70 - 100 10/10/2021 CN[facility] mg/dL 9:56 AM CDT Last Intake 1 hr 10/10/2021 CN[facility] 9:36 AM CDT Specimen Anatomical Collection Method Collection Time Receive d Time (Source) Location / / Volume Laterality Blood (Blood, 10/10/2021 9:36 AM 10/11/19 9:38 Venous) CDT AM CDT Trung Plasencia P.A.-C., M.S. LAB BLOOD NON ADD-ON Performing Organization Address City/State/[facility] Code Phon e Number [id number] [place] [address] [place] [address] System [address] (ABNORMAL) Tacrolimus, B (10/10/2021 9:35 AM CDT) athologist [facility] Tacrolimus, B 2.5 (L) 5.0-15.0 10/11/2021 SDSC (Trough) 10:30 AM CDT ng/mL Comment: ----ADDITIONAL INFORMATION---- Target steady-state trough concentration s vary depending on the type of transplant, concomitant immunosuppressio n, clinical/institutional protocols, and time post-transplant. Results should be interpreted in conjunction with this clinical information and any physic al signs/symptoms of rejection/toxicity. Testing performed by Liquid Chromatograp hy-Tandem Mass Spectrometry (LC-MS/MS). This test was developed and its performa nce characteristics determined by [facility] in a manner consistent with CLIA requirements. This test has not been cleared or approved by the U.S. Mer d and Drug Administration. Specimen Anatomical Collection Method Collection Time Receive d Time (Source) Location / / Volume Laterality Blood (Blood, 10/10/2021 9:35 AM 10/12/19 22 7:11 Venous) CDT AM CDT Trung Plasencia P.A.-C. M.S. LAB BLOOD NON ADD-ON Performing Organization Address [facility] Phon e Number [address] MURILLO [place] [phone] [address] [facility] [place] [address] Laboratory Medicine and Pathology [address] [place] [address] Dr. MURILLO (ABNORMAL) CMV DNA Detect / Quant, Plasma (10/10/2021 9:35 AM CDT) [facility] Method Time Signature CMV DNA 2170 (A) Undetected 10/11/2021 [facility] Detect/Quant, IU/mL 11:53 AM CDT P Comment: Result in log IU/mL is 3.34. ----ADDITIONAL INFORMATION---- The quantification range of this assay i s 35 to 10,000,000 IU/mL (1.54 log to 7.00 log IU/mL). Testing was performed u sing the tika CMV test ([employer] with the [employer]ika [employer] System. Specimen Anatomical Collection Method Collection Time Receive d Time (Source) Location / / Volume Laterality Blood (Blood, 10/10/2021 9:35 AM 10/11/19 22 8:00 Venous) CDT PM CDT Trung Plasencia P.A.-C., M.S. LAB MICROBIOLOGY - BLOOD O RDERABLES Performing Organization Address [facility] Phon e Number [address] MURILLO [place] [address] [address] [facility] [place] [address] Laboratory Medicine and Pathology [address] [place] [address] Dr. MURILLO (ABNORMAL) Comprehensive Metabolic Panel (10/10/2021 9:35 AM CDT) Analysis Performed At Patho logist Time Signature Potassium, P 3.8 3.6 - 5.2 10/10/2021 [facility] mmol/L 10:00 AM CDT Sodium, P 129 (L) 135 - 145 10/10/2021 [facility] mmol/L 10:00 AM CDT Chloride, P 96 (L) 98 - 107 10/10/2021 [facility] mmol/L 10:00 AM CDT Bicarbonate, P 20 (L) 22 - 29 10/10/2021 [facility] mmol/L 10:00 AM CDT Anion Gap, P 13 7 - 15 10/10/2021 [facility] 10:00 AM CDT BUN (Blood Urea 24 8 - 24 10/10/2021 [facility] Nitrogen), P mg/dL 10:00 AM CDT Creatinine 2.14 (H) 0.74 - 10/10/2021 [facility] 1.35 mg/dL 10:00 AM CDT eGFR-Black/Afri 36 (L) >=60 10/10/2021 CN[facility] can Vietnamese mL/min/BSA 10:00 AM CDT Comment: ----ADDITIONAL INFORMATION---- Estimated GFR calculated using the 2009 CKD_EPI creatinine equation. eGFR Non-Black/ 31 (L) >=60 mL/min/BSA 10/10/2021 10:00 AM CDT [facility] Vietnamese Comment: ----ADDITIONAL INFORMATION---- Estimated GFR calculated using the 2009 CKD_EPI creatinine equation. Calcium, Total, P 9.0 8.8 - 10.2 mg/dL 10/10/2021 10:0 0 AM CDT CN[facility] Glucose, P CANCELED mg/dL 10/10/2021 9:38 AM CDT CNFL Comment: Duplicate test request. Result canceled by the ancillary. Protein, Total, P 6.2 (L) 6.3 - 7.9 g/dL 10/10/2021 10:00 AM CDT CN[facility] Albumin, P 3.8 3.5 - 5.0 g/dL 10/10/2021 10:00 AM CDT CNFL Aspartate Aminotransferase 18 8 - 48 U/L 10/10/2021 1 0:00 AM CDT CN[facility] (AST), P Alkaline Phosphatase, P 111 40 - 129 U/L 10/10/2021 10 :00 AM CDT CNFL Alanine Aminotransferase 18 7 - 55 U/L 10/10/2021 10: 00 AM CDT CNFL (ALT), P Bilirubin, Total, P 0.5 <=1.2 mg/dL 10/10/2021 10:00 A M CDT CNFL Specimen Anatomical Collection Method Collection Time Receive d Time (Source) Location / / Volume Laterality Blood (Blood, 10/10/2021 9:35 AM 10/11/19 9:38 Venous) CDT AM CDT Trung Plasencia P.A.-C. M.S. LAB BLOOD ADD-ON Performing Organization Address City/[facility] Code Phon e Number [address] [phone] [place] [address] System [address] (ABNORMAL) CBC without Differential (10/10/2021 9:35 AM CDT) [facility] gist Method Time Signature Hemoglobin 9.8 (L) 13.2 - 10/10/2021 CN[facility] 16.6 g/dL 9:45 AM CDT Hematocrit 30.0 (L) 38.3 - 10/10/2021 CNFL 48.6 % 9:45 AM CDT Erythrocytes 3.04 (L) 4.35 - 10/10/2021 CN[facility] 5.65 9:45 AM CDT x10(12)/L MCV 98.7 (H) 78.2 - 10/10/2021 CN[facility] 97.9 fL 9:45 AM CDT RBC Distrib Width 13.8 11.8 - 10/10/2021 [facility] 14.5 % 9:45 AM CDT Platelet Count 227 135 - 317 10/10/2021 [facility] x10(9)/L 9:45 AM CDT Leukocytes 8.0 3.4 - 9.6 10/10/2021 CN[facility] x10(9)/L 9:45 AM CDT Specimen Anatomical Collection Method Collection Time Receive d Time (Source) Location / / Volume Laterality Blood (Blood, 10/10/2021 9:35 AM 10/11/19 9:38 Venous) CDT AM CDT Trung Plasencia P.A.-C., M.S. LAB BLOOD ADD-ON Performing Organization Address City/State/[facility] Code Phon e Number [facility]- [address] [place] [phone] [place] [address] System in [address] documented in this encounter Visit Diagnoses Diagnosis Transplant Liver (HCC) Medication Therapy Metallurgy Laboratory Technician Not Anticoa gulant Colitis Cytomegalovirus (HCC) documented in this encounter Additional Health Concerns Assessment Noted Time PHQ-9 Depression Total Score: 4 11/28/2020 10:17 AM CD T documented as of this encounter Care Teams Adviser Sales Relationship Specialty Start Date End Date Elsewhere, Pcp PCP - General Family Medicine 07/29/17 [facility] - Laboratory Medicine 04/12/20 [place] [address] documented as of this encounter
--- OUTSIDE RECORDS SUMMARY | 2022-04-13 12:03 | XMS_ITS | Encounter Summary ---
:1955 Author Organization [facility] Address [address] [place] [address] Care Team Providers Name Role Phone Elsewhere, Pcp Primary Care Provider Unavailable Encounter Details Date Type Department Care Team Description 10/12/2021 Documentation Division of Nephrology and Wilcox, Elissa Gordon APRN, Hypertension, Spiritism C.N.P. 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 - 10/12/2021 11:48 AM CDT Mr. Singh is a 66 year-old gentleman who has end-stage renal disease secondary to calcineurin inhibitor use for liver transplant and bilateral renal artery stenosis. He has required initiation of [facility] hemod[facility] on June 15, 2021. He is dialyzing at [facility] on Friday, Friday and Friday morning schedule. 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 He is on chronic immunosuppression. He has a history of longstanding history of chronic cough and postnasal with recurrent aspiration and required hospitalization for treatment of pneumonia. He is status post ethmoidectomy endoscopy, maxillary antrostomy and frontal sinusotomy endoscopy for his chronic sinusitis on July 26, 2021. He has left renal artery stenosis status post stent placement, bipolar disorder, hypertension, hypothyroidism, recurrent C diff infection, S pressure in pneumonia and COVID-19 infection in October 2020. He was treated with IV ganciclovir (switchedto oral Valganciclovir related to side effect) for his biopsy confirm CMV viremia. This morning, when he was receiving his intermittent hemodialysis at [facility], he was complaining of having chills and fever, worsening dyspnea with exertion, frequent cough withmucus production and lightheadedness. His CMV was elevated to 2170 on October 10 from 158 on September. His oral Valcyte has been stopped for 1 month. He has been re-initiated oral Valcyte 450 mg every 48 hours today in the outpatient setting. He is on taper down oral prednisone 20 mg daily (started with 40 mg for 2 weeks) for another 2 weeks and then 10 mg for another 2 weeks in the setting of his respiratory symptoms of cough and congestion. He has stopped his oral Bactrim prophylaxis for 1 month. He was given Bactrim SS one tablet once daily for 14 days after dialysis on dialysis days for treatment of Serratia Marcescens bronchitis/bronchiolitis. his Nephrology Crabber has recommended that he go to the emergency department in [facility] in [facility] for further evaluation and management. documented in this encounter Plan of Treatment Upcoming Encounters Date Type Specialty Care Team Description 04/24/2022 Appointment Laboratory Medicine Angélica Granger PDemetriusA.-CDemetrius [address] [place] [phone] 04/25/2022 Office Visit Otorhinolaryngology Dex Matta APRN, C.N.P., M.S.N. [address] [place] [phone] 05/08/2022 Appointment Laboratory Medicine Angélica Granger P.A.-CDemetrius [address] [place] [phone] 05/08/2022 Clinical Admitting/Central Communication Scheduling 05/10/2022 Appointment Radiology Jeremie Rose M.D. [address] [place] [phone] 05/10/2022 Comprehensive Visit Orthopedic Surgery Warner Graves M.D. [address] [place] [phone] 05/22/2022 Appointment Laboratory Medicine Angélica Granger P.A.-C. [address] [place] [phone] 06/05/2022 Appointment Laboratory Medicine Angélica Granger P.A.-C. [address] [place] [phone] 06/19/2022 Appointment Laboratory Medicine Angélica Granger P.A.-C. [address] [place] [phone] 07/03/2022 Appointment Laboratory Medicine Angélica Granger P.A.-C. [address] [place] [phone] 07/17/2022 Appointment Laboratory Medicine Angélica Granger P.A.-C. [address] [place] [phone] 07/31/2022 Appointment Laboratory Medicine Angélica Granger P.A.-C. [address] [place] [phone] 08/14/2022 Appointment Laboratory Angélica Royal P.A.-C. [address] [place] [phone] 08/28/2022 Appointment Laboratory Angélica Royal P.A.-C. [address] [place] [phone] documented as of this encounter Visit Diagnoses Not on filedocumented in this encounter Additional Health Concerns Assessment Noted Time PHQ-9 Depression Total Score: 4 11/28/2020 10:17 AM CD T documented as of this encounter Care Teams Legal Manager Relationship Specialty Start Date End Date Elsewhere, Pcp PCP - General Family Medicine 07/29/17 [facility] - Laboratory Medicine 04/12/[address] [address] documented as of this encounter
--- OUTSIDE RECORDS SUMMARY | 2022-04-13 12:03 | XMS_ITS | Encounter Summary ---
:1955 Author Organization [facility] Address [address] [place] [address] Care Team Providers Name Role Phone Elsewhere, Pcp Primary Care Provider Unavailable Reason for Visit Reason Comments Phone Contact Encounter Details Date Type Department Care Team Description 10/11/2021 Clinical Communication Irena Gamez Phone Contact Center for R, R.N. 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 - 10/12/2021 8:50 AM CDT SUBJECTIVE CHIEF COMPLAINT / REASON FOR CALL Phone Contact Information Discussed Communicated Dr. Trammell and Trung Plasencia's recommendations. Bruce will decrease his CellCept to 250 mg twice daily and will restart his Valcyte. He will let us know in the future if outside providers increase steroids or he starts on any new medications. Will [facility]ed an order for a 90 days supply of Valcyte. Discussed with Bruce and he would prefer 90days supply as it is most likely cheaper. He knows he may have medication left over. PLAN Disposition/Recommendation: self-care is appropriate at this time, patient encouraged to call back with questions Information/Education: patient/caller able to teach back Caller agreeable to plan of care: yes The following references were used: nursing clinical judgement and provider Dr. Trammell and Trung Plasencia Telephone Encounter - Yolie Dubois R.N. - 10/11/2021 4:34 PM CDT SUBJECTIVE CHIEF COMPLAINT / REASON FOR CALL Phone Contact Information Discussed I returned a call to Bruce regarding his labs. Bruce states that he has been on higher doses of prednisone recently prescribed by a different provider. He had been on 40 mg daily for 2 weeks, then tapered to 20 mg daily for 2 weeks, then took 60 mg for 3 days then went back down to 40 mg daily for 2 weeks, and is now back on 20 mg daily. He will take 20 me daily for 2 weeks, then will taper down to 10 mg daily for two weeks then finally decrease to 5 mg daily which is his normal dose. He wanted to make sure we were aware of this and verify that he should still decrease his mycophenolate. I advised that I would verify with Dr Trammell and call him back. PLAN Disposition/Recommendation: recommended continue engagement in self-management activities Information/Education: patient/caller able to teach back Caller agreeable to plan of care: yes The following references were used: nursing clinical judgement and provider Dr Trammell and Trung Plasencia Telephone Encounter - Shadia White - 10/11/2021 3:46 PM CDT Pt calling in to speak with nursing and would like a call back at [phone]. He is wanting to speak to Yolie about the portal message she sent today. He is thinking he may know the reasoning behind the results. Thank you, documented in this encounter Plan of Treatment Upcoming Encounters Date Type Specialty Care Team Description 04/24/2022 Appointment Laboratory Medicine Angélica Granger P.A.-C. [address] [place] [phone] 04/25/2022 Office Visit Otorhinolaryngology Dex Matta, RAMONA, C.N.P., M.S.N. [address] [place] [phone] 05/08/2022 Appointment Laboratory Medicine Angélica Granger P.A.-C. [address] [place] [phone] 05/08/2022 Clinical Admitting/Central Communication Scheduling 05/10/2022 Appointment Radiology Jeremie Rose M.D. [address] [place] [phone] 05/10/2022 Comprehensive Visit Orthopedic Surgery Warner Graves M.D. [address] [place] [phone] 05/22/2022 Appointment Laboratory Medicine Angélica Granger P.A.-C. [address] [place] [phone] 06/05/2022 Appointment Laboratory Medicine Angélica Granger P.A.-C. [address] [place] [phone] 06/19/2022 Appointment Laboratory Medicine Angélica Granger P.A.-C. [address] [place] [phone] 07/03/2022 Appointment Laboratory Medicine Angélica Granger P.A.-C. [address] [place] [phone] 07/17/2022 Appointment Laboratory Medicine Angélica Granger P.A.-C. [address] [place] [phone] 07/31/2022 Appointment Laboratory Medicine Angélica Granger P.A.-C. [address] [place] [phone] 08/14/2022 Appointment Laboratory Medicine Angélica Granger P.A.-C. [address] [place] [phone] 08/28/2022 Appointment Laboratory Medicine Angélica Granger P.A.-C. [address] [place] [phone] documented as of this encounter Visit Diagnoses Not on filedocumented in this encounter Additional Health Concerns Assessment Noted Time PHQ-9 Depression Total Score: 4 11/28/2020 10:17 AM CD T documented as of this encounter Care Teams Equipment Validation Specialist Relationship Specialty Start Date End Date Elsewhere, Pcp PCP - General Family Medicine 07/29/17 [facility] - Laboratory Medicine 04/12/[address] [address] documented as of this encounter
--- OUTSIDE RECORDS SUMMARY | 2022-04-13 12:03 | XMS_ITS | Encounter Summary ---
:[address] [facility] Address [address] [place] [address] Care Team Providers Name Role Phone Elsewhere, Pcp Primary Care Provider Unavailable Reason for Visit Reason Comments Labs Only Encounter Details Date Type Department Care Team Description 10/04/2021 Clinical Communication Irena Gamez [facility] Labs Only Center for R, R.N. 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 - 10/04/2021 2:33 PM CDT Transplant type: Liver Date of transplant: 06/12/2013 [...] Valcyte on 09/15 Please advise on recommendations. Yolie Rasheed documented in this encounter Plan of Treatment Upcoming Encounters Date Type Specialty Care Team Description 04/24/2022 Appointment Laboratory Medicine Angélica Granger P.A.-CDemetrius [address] [place] [phone] 04/25/2022 Office Visit Otorhinolaryngology Dex Matta APRN, C.N.P., M.S.N. [address] [place] [phone] 05/08/2022 Appointment Laboratory Medicine Angélica Granger P.A.-C. [address] [place] [phone] 05/08/2022 Clinical Admitting/Central Communication Scheduling 05/10/2022 Appointment Radiology Jeremie Rose M.D. [address] [place] [phone] 05/10/2022 Comprehensive Visit Orthopedic Surgery Warner Graves M.D. [address] [place] [phone] 05/22/2022 Appointment Laboratory Medicine Angélica Granger P.A.-C. [address] [place] [phone] 06/05/2022 Appointment Laboratory Medicine Angélica Granger P.A.-C. [address] [place] [phone] 06/19/2022 Appointment Laboratory Medicine Angélica Granger P.A.-C. [address] [place] [phone] 07/03/2022 Appointment Laboratory Medicine Angélica Granger P.A.-C. [address] [place] [phone] 07/17/2022 Appointment Laboratory Medicine Angélica Granger P.A.-C. [address] [place] [phone] 07/31/2022 Appointment Laboratory Medicine Angélica Granger P.A.-C. [address] [place] [phone] 08/14/2022 Appointment Laboratory Medicine Angélica Granger P.A.-C. [address] [place] [phone] 08/28/2022 Appointment Laboratory Medicine Angélica Granger P.A.-C. [address] [place] [phone] documented as of this encounter Visit Diagnoses Not on filedocumented in this encounter Additional Health Concerns Infection Onset Date Last Indicated Resolved Time COVID19 Pending 10/12/2021 10/12/2021 10/12/2021 2:28 PM CDT COVID19 Pending 10/12/2021 10/12/2021 10/13/2021 12:34 AM CDT Assessment Noted Time PHQ-9 Depression Total Score: 4 11/28/2020 10:17 AM CD T documented as of this encounter Care Teams Mill Platform Supervisor Relationship Specialty Start Date End Date Elsewhere, Pcp PCP - General Family Medicine 07/29/17 [facility] - Laboratory Medicine 04/12/[address] [address] documented as of this encounter
--- OUTSIDE RECORDS SUMMARY | 2022-04-13 12:03 | XMS_ITS | Encounter Summary ---
:1955 Author Organization [facility] Address [address] [place] [address] Care Team Providers Name Role Phone Elsewhere, Pcp Primary Care Provider Unavailable Encounter Details Date Type Department Care Team Description 10/03/2021 Hospital Encounter Department of Trung Plasencia Liver (HCC); Laboratory Medicine Edmundo Stern, Medicati on Therapy Assisted Not Anticoagulant; in Jimmie Blake M.S. Colitis Cytomegalovirus (HCC) [address] [phone] [place], [place] [phone] (Work) [phone] Social History Tobacco Use Types Packs/Day Years [...] or relatives? How often do you attend mandaen or More than 4 times per year 12/15/2021 denominational services? Do you belong to any clubs or No 12/15/2021 organizations such as mandaen groups, unions, fraternal or athletic groups, or [...] place to sleep or slept in a group home (including now)? Education Answer Date Recorded What is the highest level of school you have Some college, n o degree 02/25/2019 completed or the highest degree you have received? 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 Lactobacillus Take 1 capsule by 0 08/15/20212 08/2021 acidophilus capsule mouth 2 (two) times [...] Hypertension And Chronic Kidney Disease Stage 4 ([facility]) oxyCODONE (ROXICODONE) 5 Take 1 tablet (5 [...] Laboratory Medicine Angélica Granger P.A.-C. [address] [place] [phone] 04/25/2022 Office Visit Otorhinolaryngology Dex Matta APRN, C.N.P., M.S.N. [address] [place] [phone] 05/08/2022 Appointment Laboratory Medicine Angélica Granger P.A.-C. [address] [place] [phone] 05/08/2022 Clinical Admitting/Central Communication Scheduling 05/10/2022 Appointment Radiology Jeremie Rose M.D. [address] [place] [phone] 05/10/2022 Comprehensive Visit Orthopedic Surgery Warner Graves M.D. [address] [place] [phone] 05/22/2022 Appointment Laboratory Medicine Angélica Granger P.A.-C. [address] [place] [phone] 06/05/2022 Appointment Laboratory Medicine Angélica Granger P.A.-C. [address] [place] [phone] 06/19/2022 Appointment Laboratory Medicine Angélica Granger P.A.-C. [address] [place] [phone] 07/03/2022 Appointment Laboratory Medicine Angélica Granger P.A.-C. [address] [place] [phone] 07/17/2022 Appointment Laboratory Medicine Angélica Granger P.A.-C. [address] [place] [phone] 07/31/2022 Appointment Laboratory Medicine Angélica Granger P.A.-C. [address] [place] [phone] 08/14/2022 Appointment Laboratory Medicine Angélica Granger P.A.-C. [address] [place] [phone] 08/28/2022 Appointment Laboratory Medicine Angélica Granger P.A.-C. [address] [place] [phone] documented as of this encounter Procedures Procedure Name Priority Date/Time Associated Diagnosis Comme nts CMV DNA DETECT/QUANT, Routine 10/03/2021 8:37 Transplant Liver (HCC) Results for this P AM CDT Medication Therapy procedure are in Healthcare Social Worker Not the results Anticoagulant section. Colitis Cytomegalovirus (HCC) TACROLIMUS LEVEL, B Routine 10/03/2021 8:37 Transplant L iver (HCC) Results for this AM CDT Medication Therapy procedure are in Assisted Not the results Anticoagulant section. Colitis Cytomegalovirus (HCC) CBC WITHOUT Routine 10/03/2021 8:37 Transplant Liver (HCC) Results for this DIFFERENTIAL, B AM CDT Medication Therapy proced ure are in Assisted Not the results Anticoagulant section. Colitis Cytomegalovirus (HCC) GLUCOSE, FASTING, S/P Routine 10/03/2021 8:37 Transplant Liver (HCC) Results for this AM CDT Medication Therapy procedure are in Healthcare Social Worker Not the results Anticoagulant section. Colitis Cytomegalovirus (HCC) COMPREHENSIVE Routine 10/03/2021 8:37 Transplant Liver (HCC) Results for this METABOLIC PANEL, S/P AM CDT Medication Therapy p rocedure are in Assisted Not the results Anticoagulant section. Colitis Cytomegalovirus (HCC) documented in this encounter Results (ABNORMAL) Tacrolimus, B (10/03/2021 8:37 AM CDT) athologist Signature Tacrolimus, B 1.7 (L) 5.0-15.0 10/04/2021 [facility] (Trough) 11:04 AM CDT ng/mL Comment: ----ADDITIONAL INFORMATION---- Target steady-state trough concentration s vary depending on the type of transplant, concomitant immunosuppressio n, clinical/institutional protocols, and time post-transplant. Results should be interpreted in conjunction with this clinical information and any physic al signs/symptoms of rejection/toxicity. Testing performed by Liquid Chromatograp hy-Tandem Mass Spectrometry (LC-MS/MS). This test was developed and its performa nce characteristics determined by [facility] in a manner consistent with CLIA requirements. This test has not been cleared or approved by the U.S. Mer d and Drug Administration. Specimen Anatomical Collection Method Collection Time Receive d Time (Source) Location / / Volume Laterality Blood (Blood, 10/03/2021 8:37 AM 10/05/19 7:07 Venous) CDT AM CDT Trung Plasencia P.A.-C., M.S. LAB BLOOD NON ADD-ON Performing Organization Address City/State/ZIP Code Phon e Number [facility] [address] [place] [address] [facility] [place] [address] Laboratory Medicine and Pathology [address] [place] (ABNORMAL) CMV DNA Detect / Quant, Plasma (10/03/2021 8:37 AM CDT) Patholo gist Method Time Signature CMV DNA 158 (A) Undetected 10/04/2021 [facility] Detect/Quant, IU/mL 2:04 PM CDT P Comment: Result in log IU/mL is 2.20. ----ADDITIONAL INFORMATION---- The quantification range of this assay i s 35 to 10,000,000 IU/mL (1.54 log to 7.00 log IU/mL). Testing was performed u sing the tika CMV test ([employer] with the tika 6800 System. Specimen Anatomical Collection Method Collection Time Receive d Time (Source) Location / / Volume Laterality Blood (Blood, 10/03/2021 8:37 AM 10/04/19 8:56 Venous) CDT PM CDT Trung Palsencia P.A.-C., M.S. LAB MICROBIOLOGY - BLOOD O RDERABLES Performing Organization Address City/[facility]/ZIP Code Phon e Number [facility] [address] [address] [place], [place] [address] [place], [place] [address]t. [place] [address] Laboratory Medicine and Pathology [address] [place] (ABNORMAL) Glucose, Fasting (10/03/2021 8:37 AM CDT) P athologist Signature Glucose, P 178 (H) 70 - 100 10/03/2021 [facility] mg/dL 8:57 AM CDT Last Intake 13 hr 10/03/2021 [facility] 8:37 AM CDT Specimen Anatomical Collection Method Collection Time Receive d Time (Source) Location / / Volume Laterality Blood (Blood, 10/03/2021 8:37 AM 10/04/19 8:38 Venous) CDT AM CDT Trung Plasencia P.A.-C., M.S. LAB BLOOD NON ADD-ON Performing Organization Address City/[facility] [[email or web address]] Code Phon e Number [address] [address] [place] [address] System [address] (ABNORMAL) Comprehensive Metabolic Panel (10/03/2021 8:37 AM CDT) Analysis Performed At Patho logist Time Signature Potassium, P 3.6 3.6 - 5.2 10/03/2021 [facility] mmol/L 9:00 AM CDT Sodium, P 130 (L) 135 - 145 10/03/2021 [facility] mmol/L 9:00 AM CDT Chloride, P 93 (L) 98 - 107 10/03/2021 [facility] mmol/L 9:00 AM CDT Bicarbonate, P 22 22 - 29 10/03/2021 [facility] mmol/L 9:00 AM CDT Anion Gap, P 15 7 - 15 10/03/2021 [facility] 9:00 AM CDT BUN (Blood Urea 50 (H) 8 - 24 10/03/2021 [facility] Nitrogen), P mg/dL 9:00 AM CDT Creatinine 3.72 (H) 0.74 - 10/03/2021 [facility] 1.35 mg/dL 9:00 AM CDT eGFR-Black/Afri 18 (L) >=60 10/03/2021 [facility] can Bahamian mL/min/BSA 9:00 AM CDT Comment: ----ADDITIONAL INFORMATION---- Estimated GFR calculated using the 2009 CKD_EPI creatinine equation. eGFR Non-Black/ 16 (L) >=60 mL/min/BSA 10/03/2021 9:00 AM CDT [facility] Bahamian Comment: ----ADDITIONAL INFORMATION---- Estimated GFR calculated using the 2009 CKD_EPI creatinine equation. Calcium, Total, P 8.8 8.8 - 10.2 mg/dL 10/03/2021 9:00 AM CDT [facility] Glucose, P CANCELED mg/dL 10/03/2021 8:38 AM CDT [facility] Comment: Duplicate test request. Result canceled by the ancillary. Protein, Total, P 6.1 (L) 6.3 - 7.9 g/dL 10/03/2021 9:00 A M CDT [facility] Albumin, P 3.8 3.5 - 5.0 g/dL 10/03/2021 9:00 AM CDT C NFL Aspartate Aminotransferase 14 8 - 48 U/L 10/03/2021 9 :00 AM CDT [facility] (AST), P Alkaline Phosphatase, P 109 40 - 129 U/L 10/03/2021 9: 00 AM CDT [facility] Alanine Aminotransferase 15 7 - 55 U/L 10/03/2021 9:0 0 AM CDT [facility] (ALT), P Bilirubin, Total, P 0.5 <=1.2 mg/dL 10/03/2021 9:00 AM CDT [facility] Specimen Anatomical Collection Method Collection Time Receive d Time (Source) Location / / Volume Laterality Blood (Blood, 10/03/2021 8:37 AM 10/04/19 8:38 Venous) CDT AM CDT Trung Plasencia P.A.-C., M.S. LAB BLOOD ADD-ON Performing Organization Address City/[facility] [[email or web address]] Code Phon e Number [facility]- [address] [place] [address] [place] [address] System [address] (ABNORMAL) CBC without Differential (10/03/2021 8:37 AM CDT) [facility] gist Method Time Signature Hemoglobin 9.6 (L) 13.2 - 10/03/2021 [facility] 16.6 g/dL 8:49 AM CDT Hematocrit 29.5 (L) 38.3 - 10/03/2021 [facility] 48.6 % 8:49 AM CDT Erythrocytes 3.01 (L) 4.35 - 10/03/2021 [facility] 5.65 8:49 AM CDT x10(12)/L MCV 98.0 (H) 78.2 - 10/03/2021 [facility] 97.9 fL 8:49 AM CDT RBC Distrib Width 13.5 11.8 - 10/03/2021 [facility] 14.5 % 8:49 AM CDT Platelet Count 221 135 - 317 10/03/2021 [facility] x10(9)/L 8:49 AM CDT Leukocytes 5.5 3.4 - 9.6 10/03/2021 [facility] x10(9)/L 8:49 AM CDT Specimen Anatomical Collection Method Collection Time Receive d Time (Source) Location / / Volume Laterality Blood (Blood, 10/03/2021 8:37 AM 10/04/19 8:38 Venous) CDT AM CDT Trung Plasencia P.A.-C., M.S. LAB BLOOD ADD-ON Performing Organization Address City/[facility] [[email or web address]] Code Phon e Number [facility]- [address] [place] [address] [place] [address] System [address] documented in this encounter Visit Diagnoses Diagnosis Transplant Liver (HCC) Medication Therapy Healthcare Social Worker Not Anticoa gulant Colitis Cytomegalovirus (HCC) documented in this encounter Additional Health Concerns Assessment Noted Time PHQ-9 Depression Total Score: 4 11/28/2020 10:17 AM CD T documented as of this encounter Care Teams Abattoir Supervisor Relationship Specialty Start Date End Date Elsewhere, Pcp PCP - General Family Medicine 07/29/[address] [facility] - Laboratory Medicine 04/12/[address] [address] documented as of this encounter
--- OUTSIDE RECORDS SUMMARY | 2022-04-13 12:03 | XMS_ITS | Encounter Summary ---
:1955 Author Organization [facility] Address [address] [place] [address] Care Team Providers Name Role Phone Elsewhere, Pcp Primary Care Provider Unavailable Reason for Visit Reason Comments Txp Tacrolimus Adjustment Protocol - Liver Encounter Details Date Type Department Care Team Description 10/05/2021 Clinical Jessika Olivarez Txp [facility] for C, R.N. 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 How often do you attend episcopalian or More than 4 times per year 12/15/2021 oriental orthodox services? 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 - 10/05/2021 9:14 AM CDT Tacrolimus level within goal range of 1.5-4, per Tacrolimus Adjustment Protocol no dose change recommended. Other lab results received and reviewed, stable trends, continue monitoring weekly. documented in this encounter Plan of Treatment Upcoming Encounters Date Type Specialty Care Team Description 04/24/2022 Appointment Laboratory Medicine Angélica Granger P.A.-C. [address] [place] [phone] 04/25/2022 Office Visit Otorhinolaryngology Dex Matta APRN, C.N.P., M.S.N. [address] [place] [phone] 05/08/2022 Appointment Laboratory Medicine Angélica Granger P.A.-C. [address] [place] [phone] 05/08/2022 Clinical Admitting/Central Communication Scheduling 05/10/2022 Appointment Radiology Jeremie Rose M.D. [address] [place] [phone] 05/10/2022 Comprehensive Visit Orthopedic Surgery Warner Graves M.D. [address] [place] [phone] 05/22/2022 Appointment Laboratory Medicine Angélica Granger P.A.-C. [address] [place] [phone] 06/05/2022 Appointment Laboratory Medicine Angélica Granger P.A.-C. [address] [place] [phone] 06/19/2022 Appointment Laboratory Medicine Angélica Granger P.A.-C. [address] [place] [phone] 07/03/2022 Appointment Laboratory Medicine Angélica Granger P.A.-C. [address] [place] [phone] 07/17/2022 Appointment Laboratory Medicine Angélica Granger P.A.-C. [address] [place] [phone] 07/31/2022 Appointment Laboratory Medicine Angélica Granger P.A.-C. [address] [place] [phone] 08/14/2022 Appointment Laboratory Medicine Angélica Granger P.A.-C. [address] [place] [phone] 08/28/2022 Appointment Laboratory Medicine Angélica Granger P.A.-C. [address] [place] [phone] documented as of this encounter Visit Diagnoses Not on filedocumented in this encounter Additional Health Concerns Assessment Noted Time PHQ-9 Depression Total Score: 4 11/28/2020 10:17 AM CD T documented as of this encounter Care Teams Business Consultant Relationship Specialty Start Date End Date Elsewhere, Pcp PCP - General Family Medicine 07/29/17 [facility] - Laboratory Medicine 04/12/[address] [address] documented as of this encounter
--- OUTSIDE RECORDS SUMMARY | 2022-04-13 12:03 | XMS_ITS | Encounter Summary ---
:1955 Author Organization [facility] Address [address] [place] [address] Care Team Providers Name Role Phone Elsewhere, Pcp Primary Care Provider Unavailable Reason for Visit Reason Comments Txp Tacrolimus Adjustment Protocol - Liver Encounter Details Date Type Department Care Team Description 10/01/2021 Clinical Curt Moss, [facility] Communication Center for Yolie R, Adjustment Transplantation and R.N. 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 - 10/01/2021 7:25 AM CDT Tacrolimus level within goal range of 1.2-4, per Tacrolimus Adjustment Protocol no dose change recommended. Other lab results received and reviewed, stable trends, continue monitoring weekly. documented in this encounter Plan of Treatment Upcoming Encounters Date Type Specialty Care Team Description 04/24/2022 Appointment Laboratory Medicine Angéliac Granger P.A.-C. [address] [place] [phone] 04/25/2022 Office Visit Otorhinolaryngology Dex Matta APRN, C.N.P., M.S.N. [address] [place] [phone] 05/08/2022 Appointment Laboratory Medicine Angélica Granger P.A.-C. [address] [place] [phone] 05/08/2022 Clinical Admitting/Central Communication Scheduling 05/10/2022 Appointment Radiology Jeremie Rose M.D. [address] [place] [phone] 05/10/2022 Comprehensive Visit Orthopedic Surgery Warner Graves M.D. [address] [place] [phone] 05/22/2022 Appointment Laboratory Medicine Angélica Granger P.A.-C. [address] [place] [phone] 06/05/2022 Appointment Laboratory Medicine Angélica Granger P.A.-C. [address] [place] [phone] 06/19/2022 Appointment Laboratory Medicine Angélica Granger P.A.-C. [address] [place] [phone] 07/03/2022 Appointment Laboratory Medicine Angélica Granger P.A.-C. [address] [place] [phone] 07/17/2022 Appointment Laboratory Medicine Angélica Granger P.A.-C. [address] [place] [phone] 07/31/2022 Appointment Laboratory Medicine Angélica Granger P.A.-C. [address] [place] [phone] 08/14/2022 Appointment Laboratory Medicine Angélica Granger P.A.-C. [address] [place] [phone] 08/28/2022 Appointment Laboratory Medicine Angélica Granger P.A.-C. [address] [place] [phone] documented as of this encounter Visit Diagnoses Not on filedocumented in this encounter Additional Health Concerns Assessment Noted Time PHQ-9 Depression Total Score: 4 11/28/2020 10:17 AM CD T documented as of this encounter Care Teams Appraisal Analyst Relationship Specialty Start Date End Date Elsewhere, Pcp PCP - General Family Medicine 07/29/17 [facility] - Laboratory Medicine 04/12/[address] [address] documented as of this encounter
--- OUTSIDE RECORDS SUMMARY | 2022-04-13 12:03 | XMS_ITS | Encounter Summary ---
:1955 Author Organization [facility] Address [address] [place] [address] Care Team Providers Name Role Phone Elsewhere, Pcp Primary Care Provider Unavailable Reason for Visit Reason Comments Med Refill Encounter Details Date Type Department Care Team Description 10/11[facility]2021 [facility] M[facility] 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 [address] [place] [phone] 04/25/2022 Office Visit Otorhinolaryngology Dex Matta APRN, C.N.P., M.S.N. [address] [place] [phone] 05/08/2022 Appointment Laboratory Medicine Angélica Granger, P.A.-C. [address] [place] [phone] 05/08/2022 Clinical Admitting/Central Communication Scheduling 05/10/2022 Appointment Radiology Jeremie Rose M.D. [address] [place] [phone] 05/10/2022 Comprehensive Visit Orthopedic Surgery Warner Graves M.D. [address] [place] [phone] 05/22/2022 Appointment Laboratory Medicine GunAngélica wilcox P.A.-C. [address] [place] [phone] 06/05/2022 Appointment Laboratory Medicine Angélica Granger P.A.-C. [address] [place] [phone] 06/19/2022 Appointment Laboratory Medicine Angélica Granger P.A.-C. [address] [place] [phone] 07/03/2022 Appointment Laboratory Medicine Angélica Granger P.A.-C. [address] [place] [phone] 07/17/2022 Appointment Laboratory Angélica Royal P.A.-C. [address] [place] [phone] 07/31/2022 Appointment Laboratory Medicine Angélica Granger P.A.-C. [address] [place] [phone] 08/14/2022 Appointment Laboratory Angélica Royal P.A.-C. [address] [place] [phone] 08/28/2022 Appointment Laboratory Medicine Angélica Granger P.A.-C. [address] [place] [phone] documented as of this encounter Visit Diagnoses Diagnosis Transplant Liver (HCC) Medication Therapy Shelter Not Anticoa gulant Infection Cytomegalovirus (HCC) documented in this encounter Additional Health Concerns Assessment Noted Time PHQ-9 Depression Total Score: 4 11/28/2020 10:17 AM CD T documented as of this encounter Care Teams Aoc Plans Intelligence Officer Chief Relationship Specialty Start Date End Date Elsewhere, Pcp PCP - General Family Medicine 07/29/17 [facility] - Laboratory Medicine 04/12/20 [place] [address] documented as of this encounter
--- OUTSIDE RECORDS SUMMARY | 2022-04-13 12:04 | XMS_ITS | Encounter Summary ---
:1955 Author Organization [facility] Address [address] [place] [address] Care Team Providers Name Role Phone Elsewhere, Pcp Primary Care Provider Unavailable Reason for Referral Outpatient (Routine) - Closed Specialty Diagnoses / Procedures Referred By Contact Refer red To Contact Diagnoses Failure Renal End Stage (HCC) Follow Up Surgery Exam Fistula Arteriovenous Acquired (HCC) Dario Shafer M.D., [facility] Procedures US Hemodialysis Fistula-Graft Right Ph.D. 200 [place], [place] [phone] Referral ID Status Reason Start Date Expiration Date Visits Requ ested Visits Authorized [id number] Closed 07/24/2021 07/24/2022 1 1 Reason for Visit Outpatient (Routine) - Closed Specialty Diagnoses / Procedures Referred By Contact Refer red To Contact Diagnoses Failure Renal End Stage (HCC) Follow Up Surgery Exam Fistula Arteriovenous Acquired (HCC) Dario Shafer M.D., [facility] Procedures US Hemodialysis Fistula-Graft Right Ph.D. [address] [place], [place] [phone] Referral ID Status Reason Start Date Expiration Date Visits Requ ested Visits Authorized [id number] Closed 07/24/2021 07/24/2022 1 1 Encounter Details Date Type Department Care Team Description 09/11/2021 Hospital Encounter Department of Dario Shafer Failure Renal End Stage (HCC); Radiology, Kd Azevedo M.D., Ph.D. 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 traZODone (DESYREL) 100 Take 1 tablet (100 90 tablet 3 03/0 12/202108/27/2022 mg tablet mg total) by mouth at bedtime as needed for sleep. acetaminophen (TYLENOL) Take 1 tablet (500 0 02/0 06/202110/12/2021 500 mg tablet mg total) by [...] ipratropium (ATROVENT) Administer 2 sprays 30 mL 11 01/2102/05/2022 21 mcg (0.03 %) nasal into each nostril 2 spray (two) times a day. upto 5 times daily as needed. Lactobacillus Take 1 capsule by 0 08/15/2021/08/2021 acidophilus capsule mouth 2 (two) times a day with meals. While taking antibiotics to help promote gut health. lamoTRIgine (LaMICtal) TAKE 1 TABLET BY 200 tablet 3 021 10/22/2021 200 mg tablet MOUTH TWICE DAILY levothyroxine Take 1 tablet (25 90 tablet 3 12/12/2020 0612/2021 (SYNTHROID, LEVOTHROID) mcg total) by mouth 25 mcg every morning tabletIndications: before breakfast. Transplant Liver (HCC) multivitamin tablet Take 1 tablet by 0 06/18/2013 10/12/2021 mouth daily. Maintenance mycophenolate (CELLCEPT) TAKE 1 TABLET BY 180 tablet 3 11/0610/11/2021 500 mg MOUTH TWICE DAILY tabletIndications: Transplant Liver (HCC) NIFEdipine XL (PROCARDIA TAKE 3 TABLETS(90 270 tablet 3 06/2310/16/2021 XL) 30 mg 24 hr MG) BY MOUTH DAILY tabletIndications: Hypertension And Chronic Kidney Disease Stage 4 (HCC) oxyCODONE (ROXICODONE) 5 Take 1 tablet (5 [...] MOUTH DAILY Transplant Liver (HCC), Medication Therapy Senior Care Not Anticoagulant tacrolimus (PROGRAF) 0.5 TAKE 2 CAPSULES BY 360 capsule 3 10/16/2021 mg capsuleIndications: MOUTH TWICE DAILY Transplant Liver (HCC), Medication Therapy Senior Care Not Anticoagulant torsemide (DEMADEX) 10 Take 6 [...] Description 04/24/2022 Appointment Laboratory Medicine Angélica Granger P.A.-Janette [address] [place] [phone] 04/25/2022 Office Visit Otorhinolaryngology Dex Matta APRN, C.N.P., M.S.N. [address] [place] [phone] 05/08/2022 Appointment Laboratory Medicine Angélica Granger P.A.-CDemetrius [address] [place] [phone] 05/08/2022 Clinical Admitting/Central Communication Scheduling 05/10/2022 Appointment Radiology Jeremie Rose M.D. [address] [place] [phone] 05/10/2022 Comprehensive Visit Orthopedic Surgery Warner Graves M.D. [address] [place] [phone] 05/22/2022 Appointment Laboratory Medicine Angélica Granger P.A.-C. [address] [place] [phone] 06/05/2022 Appointment Laboratory Medicine Angélica Granger P.A.-C. [address] [place] [phone] 06/19/2022 Appointment Laboratory Medicine Angélica Granger P.A.-C. [address] [place] [phone] 07/03/2022 Appointment Laboratory Medicine Angélica Granger P.A.-C. [address] [place] [phone] 07/17/2022 Appointment Laboratory Medicine Angélica Granger P.A.-C. [address] [place] [phone] 07/31/2022 Appointment Laboratory Medicine Angélica Granger P.A.-C. [address] [place] [phone] 08/14/2022 Appointment Laboratory Medicine Angélica Granger P.A.-C. [address] [place] [phone] 08/28/2022 Appointment Laboratory Medicine Angélica Granger P.A.-C. [address] [place] [phone] (work) documented as of this encounter Procedures Procedure Name Priority Date/Time Associated Comments Diagnosis US HEMODIALYSIS RAD - Routine 09/11/2021 1:33 Failure Renal End Res ults for FISTULA-GRAFT RIGHT (most inpatients PM CDT Stage (HCC) this procedure and all Follow Up Surgery are in the outpatients) Exam results Fistula section. Arteriovenous Acquired (HCC) documented in this encounter Results US Hemodialysis Fistula-Graft Right (09/11/2021 1:33 PM CDT) Anatomical Region Laterality Modality Body, Ultrasound RST LOS, Ultrasound ARZ LOS, Ultrasound FLA Right Ultrasound LOS, Procedural Specimen (Source) Anatomical Collection Method Collection Time Re ceived Time Location / / Volume Laterality 09/11/2021 1:34 PM CDT Impressions 09/11/2021 1:38 PM CDT Patent arteriovenous fistula patent with normal flow volumes, however there is a focal stenosis in the outflow vein at lower humeral level. Narrative 09/11/2021 1:38 PM CDT EXAM: US HEMODIALYSIS FISTULA-GRAFT RIGHT Exam performed with color and spectral D oppler analysis. COMPARISON: Preoperative ultrasound 05/25. FINDINGS: Location: Right brachial artery to cepha lic vein fistula. Arterial: Antegrade flow distal to the f istula. Anastomosis: No evidence of significant stenosis. Outflow vein: High velocity measuring up to 531 cm/s at the lower humeral level consistent with a focal stenosis. Central veins: Patent without stenosis. Branches: 4 branches seen at antecubital fossa, mid humerus and upper humerus levels respectively. Mean average flow volume: 1410 mL/min. <500 ml/min = low flow 500-800 ml/min = borderline >800 ml/min = normal Procedure Note Leonid Matias M.B., B.Ch. - 2021 EXAM: US HEMODIALYSIS FISTULA-GRAFT RIGH T Exam performed with color and spectral D oppler analysis. COMPARISON: Preoperative ultrasound 05/25. FINDINGS: Location: Right brachial artery to cepha lic vein fistula. Arterial: Antegrade flow distal to the f istula. Anastomosis: No evidence of significant stenosis. Outflow vein: High velocity measuring up to 531 cm/s at the lower humeral level consistent with a focal stenosis. Central veins: Patent without stenosis. Branches: 4 branches seen at antecubital fossa, mid humerus and upper humerus levels respectively. Mean average flow volume: 1410 mL/min. <500 ml/min = low flow 500-800 ml/min = borderline >800 ml/min = normal IMPRESSION: Patent arteriovenous fistula patent with normal flow volumes, however there is a focal stenosis in the outflow vein at lower humeral level. Dario Shafer M.D., Ph.D. IMG US PROCEDURES documented in this encounter Visit Diagnoses Diagnosis Failure Renal End Stage (HCC) Follow Up Surgery Exam Fistula Arteriovenous Acquired (HCC) documented in this encounter Additional Health Concerns Assessment Noted Time PHQ-9 Depression Total Score: 4 11/28/2020 10:17 AM CD T documented as of this encounter Care Teams Assistant General Manager Relationship Specialty Start Date End Date Elsewhere, Pcp PCP - General Family Medicine 07/29/17 [facility] - Laboratory Medicine 04/12/20 [place] [phone] documented as of this encounter
--- OUTSIDE RECORDS SUMMARY | 2022-04-13 12:04 | XMS_ITS | Encounter Summary ---
:1955 Author Organization [facility] Address [address] [place] [address] Care Team Providers Name Role Phone Elsewhere, Pcp Primary Care Provider Unavailable Reason for Visit Reason Comments Labs Only Encounter Details Date Type Department Care Team Description 09/14/2021 Clinical Communication Irena Gamez [facility] Labs Only Center for R, R.N. Transplantation and [address] [place] [address] Clinical Regeneration in [place], [place] [address] [place] [address] [place] [phone] (Work) [phone] Social History Tobacco Use Types Packs/Day Years [...] or relatives? How often do you attend sikh or More than 4 times per year 12/15/2021 bahai services? 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 - 09/17/2021 11:20 AM CDT Provider who reviewed results: Trung Plasencia Recommendations: Stop valganciclovir. Continue checking CMV for 2 weeks. If levels remain undetected, we can stop checking CMV levels unless he becomes symptomatic. Labs are due: 1 week Patient Online Services message was initiated by a [facility] Registered Nurse for report of test results and recommendations. Telephone Encounter - Yolie Dubois R.N. - 09/14/2021 4:21 PM CDT Images from the original note were not included. Please review labs below. 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 He switched to oral valganciclovri 450 mg twice weekly (after dialysis on dialysis days on 08/07 per Trung Plasencia's recommendations. He recently underwent sinus surgery on 07/26/21 with ENT team for chronic rhinosinusitis and post nasal drip with recurrent aspiration. He follows with Padmini Barry CNP in Nephrology for stage 5 CKD, on hemodialysis. Current Medications & Recent Dose Changes: Tacrolimus 1 mg BID Mycophenolate 500 mg BID Prednisone 5 mg daily Labs: Recent Labs 09/12/21 0835 09/05/21 0824 08/29/21 0724 08/22/21 0924 08/14/21 0807/10/21 0928 TACROLIMUS 1.6 L 1.4 L 2.5 L 1.8 L 4.0 L 6.2 Recent Labs 09/12/21 0835 09/05/21 0824 08/29/21 0725 08/14/21 0808/14/21 0807/20/21 0900 07/16/21 0816 07/10/21 0928 HGB 10.7 L 10.6 L 9.9 L < > 9.6 L 10.1 L 10.4 L 10.1 L HCT 32.4 L 32.6 L 30.9 L < > 30.3 L 31.4 L 32.0 L 31.2 L WBC 9.1 8.1 4.8 < > 7.4 5.2 5.6 4.7 NEUTROPHILS -- -- -- -- -- 3.5 4.10 3.61 PLT 282 279 238 < > 282 306 266 209 NA 131 L 135 136 < > 130 L 135 -- 137 KPLASMA 3.3 L 3.9 3.7 < > -- -- -- -- KSERUM -- -- -- -- 3.9 3.7 -- 4.1 GLUCOSE CANCELED 124 H CANCELED 112 H CANCELED 120 H < > CANCELED 106 H -- CANCELED 118 H BUN 59 H 52 H 44 H < > 27 H 41 H -- 25 H CREATININE 3.62 H 3.53 H 3.72 H < > 3.05 H 3.79 H -- 2.75 H ALKPHOS 118 110 123 < > 119 140 H -- 151 H AST 19 20 22 < > 17 23 -- 29 ALT 24 23 19 < > 14 21 -- 34 BILITOT 0.4 0.4 0.2 < > 0.4 0.4 -- 0.4 ALBUMIN 4.1 4.0 4.1 < > 3.8 3.6 -- 3.9 < > = values in this interval not displayed. Serologies: Recent Labs 09/12/21 0835 09/05/21 0823 08/29/21 0724 08/22/21 0923 08/14/21 0820 08/03/21 0910 CMVQUANT Undetected Undetected <35 A Undetected Undetected <200 Immunosuppression Goal Range: 2 Current Lab Frequency: Weekly Please advise on any changes or recommendations. Thanks, Yolie Dubois R.N. *All labs are now found in [facility] - Lab - Flowsheets. For further review of labs, please review there or under Synopsis* documented in this encounter Plan of Treatment Upcoming Encounters Date Type Specialty Care Team Description 04/24/2022 Appointment Laboratory Medicine Angélica Granger P.A.-C. [address] [place] [phone] 04/25/2022 Office Visit Otorhinolaryngology Dex Matta, RAMONA, C.N.P., M.S.N. [address] [place] [phone] 05/08/2022 Appointment Laboratory Medicine Angélica Granger P.A.-C. [address] [place] [phone] 05/08/2022 Clinical Admitting/Central Communication Scheduling 05/10/2022 Appointment Radiology Jeremie Rose M.D. [address] [place] [phone] 05/10/2022 Comprehensive Visit Orthopedic Surgery Warner Graves M.D. [address] [place] [phone] 05/22/2022 Appointment Laboratory Medicine Angélica Granger P.A.-C. [address] [place] [phone] 06/05/2022 Appointment Laboratory Medicine Angélica Granger P.A.-C. [address] [place] [phone] 06/19/2022 Appointment Laboratory Medicine Angélica Granger P.A.-C. [address] [place] [phone] 07/03/2022 Appointment Laboratory Medicine Angélica Granger P.A.-C. [address] [place] [phone] 07/17/2022 Appointment Laboratory Medicine Angélica Granger P.A.-C. [address] [place] [phone] 07/31/2022 Appointment Laboratory Medicine Angélica Granger P.A.-C. [address] [place] [phone] 08/14/2022 Appointment Laboratory Medicine Angélica Granger P.A.-C. [address] [place] [phone] 08/28/2022 Appointment Laboratory Medicine Angélica Granger P.A.-C. [address] [place] [phone] documented as of this encounter Visit Diagnoses Not on filedocumented in this encounter Additional Health Concerns Assessment Noted Time PHQ-9 Depression Total Score: 4 11/28/2020 10:17 AM CD T documented as of this encounter Care Teams Classification Case Manager Relationship Specialty Start Date End Date Elsewhere, Pcp PCP - General Family Medicine 07/29/17 [facility] - Laboratory Medicine 04/12/[address] [address] documented as of this encounter
--- OUTSIDE RECORDS SUMMARY | 2022-04-13 12:04 | XMS_ITS | Encounter Summary ---
:1955 Author Organization [facility] Address [address] [place] [address] Care Team Providers Name Role Phone Elsewhere, Pcp Primary Care Provider Unavailable Encounter Details Date Type Department Care Team Description 09/19/2021 Orders Only Division of Nephrology and Elissa Wilcox A PRN, Hypertension, Jainism C.N.P. [place], in [place], [address] [place] [address] [place] [phone] [place] [address] [phone] Social History Tobacco Use Types Packs/Day Years [...] or relatives? How often do you attend baptism or More than 4 times per year 12/15/2021 cheondoism services? 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 [address] [place] [phone] 04/25/2022 Office Visit Otorhinolaryngology Dex Matta APRN, C.N.P., M.S.N. [address] [place] [phone] 05/08/2022 Appointment Laboratory Medicine Angélica Granger P.A.-C. [address] [place] [phone] 05/08/2022 Clinical Admitting/Central Communication Scheduling 05/10/2022 Appointment Radiology Jeremie Rose M.D. [address] [place] [phone] 05/10/2022 Comprehensive Visit Orthopedic Surgery Warner Graves M.D. [address] [place] [phone] 05/22/2022 Appointment Laboratory Medicine Angélica Granger P.A.-C. [address] [place] [phone] 06/05/2022 Appointment Laboratory Medicine Angélica Granger P.A.-C. [address] [place] [phone] 06/19/2022 Appointment Laboratory Medicine Angélica Granger P.A.-C. [address] [place] [phone] 07/03/2022 Appointment Laboratory Medicine Angélica Granger P.A.-C. [address] [place] [phone] 07/17/2022 Appointment Laboratory Medicine Angélica Granger P.A.-C. [address] [place] [phone] 07/31/2022 Appointment Laboratory Medicine Angélica Granger P.A.-C. [address] [place] [phone] 08/14/2022 Appointment Laboratory Medicine Angélica Granger P.A.-C. [address] [place] [phone] 08/28/2022 Appointment Laboratory Medicine Angélica Granger P.A.-C. [address] [place] [phone] documented as of this encounter Visit Diagnoses Not on filedocumented in this encounter Additional Health Concerns Assessment Noted Time PHQ-9 Depression Total Score: 4 11/28/2020 10:17 AM CD T documented as of this encounter Care Teams Caterer'S Aide Relationship Specialty Start Date End Date Elsewhere, Pcp PCP - General Family Medicine 07/29/17 [facility] - Laboratory Medicine 04/12/[address] [address] documented as of this encounter
--- OUTSIDE RECORDS SUMMARY | 2022-04-13 12:04 | XMS_ITS | Encounter Summary ---
:1955 Author Organization [facility] Address [address] [place] [address] Care Team Providers Name Role Phone Elsewhere, Pcp Primary Care Provider Unavailable Encounter Details Date Type Department Care Team Description 09/19/2021 Hospital Encounter Department of Trung Plasencia Liver (HCC); Laboratory Medicine Edmundo Stern, Medicati on Therapy Retirement Not Anticoagulant; in Jimmie Blake M.S. 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 [address] [place] [phone] 04/25/2022 Office Visit Otorhinolaryngology Dex Matta APRN, C.N.P., M.S.N. [address] [place] [phone] 05/08/2022 Appointment Laboratory Medicine Angélica Granger P.A.-C. [address] [place] [phone] 05/08/2022 Clinical Admitting/Central Communication Scheduling 05/10/2022 Appointment Radiology Jeremie Rose M.D. [address] [place] [phone] 05/10/2022 Comprehensive Visit Orthopedic Surgery Warner Graves M.D. [address] [place] [phone] 05/22/2022 Appointment Laboratory Medicine Angélica Granger P.A.-C. [address] [place] [phone] 06/05/2022 Appointment Laboratory Medicine Angélica Granger P.A.-C. [address] [place] [phone] 06/19/2022 Appointment Laboratory Medicine Angélica Granger P.A.-C. [address] [place] [phone] 07/03/2022 Appointment Laboratory Medicine Angélica Granger P.A.-C. [address] [place] [phone] 07/17/2022 Appointment Laboratory Medicine Angélica Granger P.A.-C. [address] [place] [phone] 07/31/2022 Appointment Laboratory Medicine Angélica Granger P.A.-C. [address] [place] [phone] 08/14/2022 Appointment Laboratory Medicine Angélica Granger P.A.-C. [address] [place] [phone] 08/28/2022 Appointment Laboratory Medicine Angélica Granger P.A.-C. [address] [place] [phone] documented as of this encounter Procedures Procedure Name Priority Date/Time Associated Diagnosis Comme nts CBC WITHOUT Routine 09/19/2021 8:40 Transplant Liver (HCC) Results for this DIFFERENTIAL, B AM CDT Medication Therapy proced ure are in Telecommunications Linesworker Not the results Anticoagulant section. Colitis Cytomegalovirus (HCC) GLUCOSE, FASTING, S/P Routine 09/19/2021 8:40 Transplant Liver (HCC) Results for this AM CDT Medication Therapy procedure are in Retirement Not the results Anticoagulant section. Colitis Cytomegalovirus (HCC) CMV DNA DETECT/QUANT, Routine 09/19/2021 8:39 Transplant Liver (HCC) Results for this P AM CDT Medication Therapy procedure are in Telecommunications Linesworker Not the results Anticoagulant section. Colitis Cytomegalovirus (HCC) TACROLIMUS LEVEL, B Routine 09/19/2021 8:39 Transplant L iver (HCC) Results for this AM CDT Medication Therapy procedure are in Telecommunications Linesworker Not the results Anticoagulant section. Colitis Cytomegalovirus (HCC) COMPREHENSIVE Routine 09/19/2021 8:39 Transplant Liver (HCC) Results for this METABOLIC PANEL, S/P AM CDT Medication Therapy p rocedure are in Retirement Not the results Anticoagulant section. Colitis Cytomegalovirus (HCC) documented in this encounter Results (ABNORMAL) Glucose, Fasting (09/19/2021 8:40 AM CDT) P athologist Signature Glucose, P 124 (H) 70 - 100 09/19/2021 [facility] mg/dL 9:12 AM CDT Last Intake 14 hr 09/19/2021 [facility] 8:41 AM CDT Specimen Anatomical Collection Method Collection Time Receive d Time (Source) Location / / Volume Laterality Blood (Blood, 09/19/2021 8:40 AM 09/20/19 8:41 Venous) CDT AM CDT Trung Plasencia P.A.-C., M.S. LAB BLOOD NON ADD-ON Performing Organization Address City/State/ZIP Code Phon e Number [facility]- [address] [place] [id number] [place] [address] (ABNORMAL) CBC without Differential (09/19/2021 8:40 AM CDT) Patholo gist Method Time Signature Hemoglobin 10.6 (L) 13.2 - 09/19/2021 [facility] 16.6 g/dL 8:50 AM CDT Hematocrit 32.3 (L) 38.3 - 09/19/2021 [facility] 48.6 % 8:50 AM CDT Erythrocytes 3.34 (L) 4.35 - 09/19/2021 [facility] 5.65 8:50 AM CDT x10(12)/L MCV 96.7 78.2 - 09/19/2021 [facility] 97.9 fL 8:50 AM CDT RBC Distrib Width 13.5 11.8 - 09/19/2021 [facility] 14.5 % 8:50 AM CDT Platelet Count 264 135 - 317 09/19/2021 [facility] x10(9)/L 8:50 AM CDT Leukocytes 7.6 3.4 - 9.6 09/19/2021 [facility] x10(9)/L 8:50 AM CDT Specimen Anatomical Collection Method Collection Time Receive d Time (Source) Location / / Volume Laterality Blood (Blood, 09/19/2021 8:40 AM 09/20/19 22 8:41 Venous) CDT AM CDT Trung Plasencia P.A.-C. MDemetriusS. LAB BLOOD ADD-ON Performing Organization Address City/[facility] Phon e Number [address] [address] [place] [address] System [address] (ABNORMAL) Tacrolimus, B (09/19/2021 8:39 AM CDT) P athologist Signature Tacrolimus, B 1.5 (L) 5.0-15.0 09/20/2021 [facility] (Trough) 11:46 AM CDT ng/mL Comment: ----ADDITIONAL INFORMATION---- Target steady-state trough concentration s vary depending on the type of transplant, concomitant immunosuppressio n, clinical/institutional protocols, and time post-transplant. Results should be interpreted in conjunction with this clinical information and any physic al signs/symptoms of rejection/toxicity. Testing performed by Liquid Chromatograp hy-Tandem Mass Spectrometry (LC-MS/MS). This test was developed and its performa nce characteristics determined by [facility] in a manner consistent with CLIA requirements. This test has not been cleared or approved by the U.S. Mer d and Drug Administration. Specimen Anatomical Collection Method Collection Time Receive d Time (Source) Location / / Volume Laterality Blood (Blood, 09/19/2021 8:39 AM 09/21/19 22 7:20 Venous) CDT AM CDT Trung Plasencia P.A.-C., M.S. LAB BLOOD NON ADD-ON Performing Organization Address City/State/ZIP Code Phon e Number [facility] [address] [place], [place] [address] SUPPORT CENTER [facility] [place] [address] Laboratory Medicine and Pathology [address] [place] (ABNORMAL) CMV DNA Detect / Quant, Plasma (09/19/2021 8:39 AM CDT) Patholo gist Method Time Signature CMV DNA <35 (A) Undetected 09/20/2021 [facility] Detect/Quant, IU/mL 12:59 AM CDT P Comment: Result in log IU/mL is <1.54. CMV DNA is detected, but level present i s <35 IU/mL (<1.54 log IU/mL). This assay cannot accurately quantify CMV DNA below this level. ----ADDITIONAL INFORMATION---- The quantification range of this assay i s 35 to 10,000,000 IU/mL (1.54 log to 7.00 log IU/mL). Testing was performed u sing the tika CMV test ([employer] with the tika HID Global0 System. Specimen Anatomical Collection Method Collection Time Receive d Time (Source) Location / / Volume Laterality Blood (Blood, 09/19/2021 8:39 AM 09/20/19 7:56 Venous) CDT PM CDT Trung Plasencia P.A.-C., M.S. LAB MICROBIOLOGY - BLOOD O RDERABLES Performing Organization Address City/State/ZIP Code Phon e Number [facility] [address] [place], [place] [address] SU[facility] CENTER [facility] [place] [address] Laboratory Medicine and Pathology [address] [place] (ABNORMAL) Comprehensive Metabolic Panel (09/19/2021 8:39 AM CDT) Analysis Performed At Patho logist Time Signature Potassium, P 3.5 (L) 3.6 - 5.2 09/19/2021 [facility] mmol/L 9:14 AM CDT Sodium, P 131 (L) 135 - 145 09/19/2021 [facility] mmol/L 9:14 AM CDT Chloride, P 91 (L) 98 - 107 09/19/2021 [facility] mmol/L 9:14 AM CDT Bicarbonate, P 24 22 - 29 09/19/2021 [facility] mmol/L 9:14 AM CDT Anion Gap, P 16 (H) 7 - 15 09/19/2021 [facility] 9:14 AM CDT BUN (Blood Urea 52 (H) 8 - 24 09/19/2021 [facility] Nitrogen), P mg/dL 9:14 AM CDT Creatinine 4.01 (H) 0.74 - 09/19/2021 [facility] 1.35 mg/dL 9:14 AM CDT eGFR-Black/Afri 17 (L) >=60 09/19/2021 [facility] can Danish mL/min/BSA 9:14 AM CDT Comment: ----ADDITIONAL INFORMATION---- Estimated GFR calculated using the 2009 CKD_EPI creatinine equation. eGFR Non-Black/ <15 (L) >=60 mL/min/BSA 09/19/2021 9:14 AM CDT [facility] Danish Comment: ----ADDITIONAL INFORMATION---- Estimated GFR calculated using the 2009 CKD_EPI creatinine equation. Calcium, Total, P 9.3 8.8 - 10.2 mg/dL 09/19/2021 9:14 AM CDT [facility] Glucose, P CANCELED mg/dL 09/19/2021 8:41 AM CDT [facility] Comment: Duplicate test request. Result canceled by the ancillary. Protein, Total, P 6.5 6.3 - 7.9 g/dL 09/19/2021 9:14 A M CDT [facility] Albumin, P 4.0 3.5 - 5.0 g/dL 09/19/2021 9:14 AM CDT C NFL Aspartate Aminotransferase (AST), 16 8 - 48 U/L 09/19 9:14 AM CDT [facility] P Alkaline Phosphatase, P 116 40 - 129 U/L 09/19/2021 9: 14 AM CDT [facility] Alanine Aminotransferase (ALT), P 19 7 - 55 U/L 09/19 9:14 AM CDT [facility] Bilirubin, Total, P 0.4 <=1.2 mg/dL 09/19/2021 9:14 AM CDT [facility] Specimen Anatomical Collection Method Collection Time Receive d Time (Source) Location / / Volume Laterality Blood (Blood, 09/19/2021 8:39 AM 09/20/19 8:41 Venous) CDT AM CDT Trung Plasencia P.A.-C., M.S. LAB BLOOD ADD-ON Performing Organization Address City/State/ZIP Code Phon e Number [facility]- [address] [place] [id number] [place] [address] [place] [address] [address] documented in this encounter Visit Diagnoses Diagnosis Transplant Liver (HCC) Medication Therapy Telecommunications Linesworker Not Anticoa gulant Colitis Cytomegalovirus (HCC) documented in this encounter Additional Health Concerns Assessment Noted Time PHQ-9 Depression Total Score: 4 11/28/2020 10:17 AM CD T documented as of this encounter Care Teams Preventive Maintenance Coordinator Relationship Specialty Start Date End Date Elsewhere, Pcp PCP - General Family Medicine 07/29/17 [facility] - Laboratory Medicine 04/12/[address] [address] documented as of this encounter
--- OUTSIDE RECORDS SUMMARY | 2022-04-13 12:04 | XMS_ITS | Encounter Summary ---
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 I was able to get Angélica on 12/06 which is not a dialysis day for patient. Online message and pag sent as well. documented in this encounter Plan of Treatment Upcoming Encounters Date Type Specialty Care Team Description 04/24/2022 Appointment Laboratory Medicine Angélica Granger, Andreea-CDemetrius [address] [place] [phone] 04/25/2022 Office Visit Otorhinolaryngology Dex Matta APRN, C.N.P., M.S.N. [address] [place] [phone] 05/08/2022 Appointment Laboratory Medicine Angélica Granger P.A.-C. [address] [place] [phone] 05/08/2022 Clinical Admitting/Central Communication Scheduling 05/10/2022 Appointment Radiology Jeremie Rose M.D. [address] [place] [phone] 05/10/2022 Comprehensive Visit Orthopedic Surgery Warner Graves M.D. [address] [place] [address] [phone] 05/22/2022 Appointment Laboratory Medicine Angélica Granger P.A.-C. [address] [place] [phone] 06/05/2022 Appointment Laboratory Medicine Angélica Granger P.A.-C. [address] [place] [phone] 06/19/2022 Appointment Laboratory Medicine Angélica Granger P.A.-C. [address] [place] [phone] 07/03/2022 Appointment Laboratory Medicine Angélica Granger P.A.-C. [address] [place] [phone] 07/17/2022 Appointment Laboratory Medicine Angélica Granger P.A.-C. [address] [place] [phone] 07/31/2022 Appointment Laboratory Medicine Angélica Granger P.A.-C. [address] [place] [phone] 08/14/2022 Appointment Laboratory Medicine Angélica Granger P.A.-C. [address] [place] [phone] 08/28/2022 Appointment Laboratory Medicine Angélica Granger P.A.-C. [address] [place] [phone] documented as of this encounter Visit Diagnoses Not on filedocumented in this encounter Additional Health Concerns Assessment Noted Time PHQ-9 Depression Total Score: 4 11/28/2020 10:17 AM CD T documented as of this encounter Care Teams Certified Adaptive Physical Educator Relationship Specialty Start Date End Date Elsewhere, Pcp PCP - General Family Medicine 07/29/17 [facility] - Laboratory Medicine 04/12/[address] [address] documented as of this encounter
--- OUTSIDE RECORDS SUMMARY | 2022-04-13 12:04 | XMS_ITS | Encounter Summary ---
:1955 Author Organization [facility] Address [address] [place] [address] Care Team Providers Name Role Phone Elsewhere, Pcp Primary Care Provider Unavailable Encounter Details Date Type Department Care Team Description 09/27/2021 Orders Only [facility] Anju [facility] Radha bradley for Transplantation and Patricia Azevedo R.N., Clinical Regeneration in [facility] [place], [place] [address] [facility] [address] [place] [phone] (Wo rk) Social History Tobacco Use Types [...] at Date Recorded 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 [address] [place] [phone] 04/25/2022 Office Visit Otorhinolaryngology Dex Matta, RAMONA, C.N.P., M.S.N. [address] [place] [phone] 05/08/2022 Appointment Laboratory Medicine Angélica Granger, P.A.-C. [address] [place] [phone] 05/08/2022 Clinical Admitting/Central Communication Scheduling 05/10/2022 Appointment Radiology Jeremie Rose M.D. [address] [place] [phone] 05/10/2022 Comprehensive Visit Orthopedic Surgery Wraner Graves M.D. [address] [place] [phone] 05/22/2022 Appointment Laboratory Medicine Angélica Granger P.A.-C. [address] [place] [phone] 06/05/2022 Appointment Laboratory Angélica Royal P.A.-C. [address] [place] [phone] 06/19/2022 Appointment Laboratory Angélica Royal P.A.-C. [address] [place] [phone] 07/03/2022 Appointment Laboratory Angélica Royal P.A.-C. [address] [place] [phone] 07/17/2022 Appointment Laboratory Angélica Royal P.A.-C. [address] [place] [phone] 07/31/2022 Appointment Laboratory Angélica Royal P.A.-C. [address] [place] [phone] 08/14/2022 Appointment Laboratory Angélica Royal P.A.-C. [address] [place] [phone] 08/28/2022 Appointment Laboratory Angélica Royal P.A.-C. [address] [place] [phone] documented as of this encounter Visit Diagnoses Not on filedocumented in this encounter Additional Health Concerns Assessment Noted Time PHQ-9 Depression Total Score: 4 11/28/2020 10:17 AM CD T documented as of this encounter Care Teams Flat Ironer Relationship Specialty Start Date End Date Elsewhere, Pcp PCP - General Family Medicine 07/29/17 [facility] - Laboratory Medicine 04/12/20 [place] [address] documented as of this encounter
--- OUTSIDE RECORDS SUMMARY | 2022-04-13 12:04 | XMS_ITS | Encounter Summary ---
:1955 Author Organization [facility] Address [address] [place] [address] Care Team Providers Name Role Phone Elsewhere, Pcp Primary Care Provider Unavailable Encounter Details Date Type Department Care Team Description 09/12/2021 Hospital Encounter Department of Trung Plasencia Liver (HCC); Laboratory Medicine Edmundo Stern, Medicati on Therapy [facility] Not Anticoagulant; in Jimmie Blake M.S. Colitis Cytomegalovirus (HCC) [address] [phone] [place], [place] [phone] (Work) [phone] Social History Tobacco Use Types Packs/Day Years [...] or relatives? How often do you attend muslim or More than 4 times per year 12/15/2021 [employer] services? 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 [address] [place] [phone] 04/25/2022 Office Visit Otorhinolaryngology Dex Matta APRN CDemetriusNJuan Miguel, M.S.N. [address] [place] [phone] 05/08/2022 Appointment Laboratory Medicine Angélica Granger P.A.-C. [address] [place] [phone] 05/08/2022 Clinical Admitting/Central Communication Scheduling 05/10/2022 Appointment Radiology Jeremie Rose M.D. [address] [place] [phone] 05/10/2022 Comprehensive Visit Orthopedic Surgery Warner Graves M.D. [address] [place] [phone] 05/22/2022 Appointment Laboratory Medicine Angélica Granger P.A.-C. [address] [place] [phone] 06/05/2022 Appointment Laboratory Medicine Angélica Granger P.A.-C. [address] [place] [phone] 06/19/2022 Appointment Laboratory Medicine Angélica Granger P.A.-C. [address] [place] [phone] 07/03/2022 Appointment Laboratory Medicine Angélica Granger P.A.-C. [address] [place] [phone] 07/17/2022 Appointment Laboratory Medicine Angélica Granger P.A.-C. [address] [place] [phone] 07/31/2022 Appointment Laboratory Medicine Angélica Granger P.A.-C. [address] [place] [phone] 08/14/2022 Appointment Laboratory Medicine Angélica Granger P.A.-C. [address] [place] [phone] 08/28/2022 Appointment Laboratory Medicine Angélica Granger P.A.-C. 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 Colitis Cytomegalovirus (HCC) TACROLIMUS LEVEL, B Routine 09/12/2021 8:35 Transplant L iver (HCC) Results for this AM CDT Medication Therapy procedure are in [facility] Not the results Anticoagulant section. Colitis Cytomegalovirus (HCC) CBC WITHOUT Routine 09/12/2021 8:35 Transplant Liver (HCC) Results for this DIFFERENTIAL, B AM CDT Medication Therapy proced ure are in [facility] Not the results Anticoagulant section. Colitis Cytomegalovirus (HCC) GLUCOSE, FASTING, S/P Routine 09/12/2021 8:35 Transplant Liver (HCC) Results for this AM CDT Medication Therapy procedure are in [facility] Not the results Anticoagulant section. 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 Colitis Cytomegalovirus (HCC) documented in this encounter Results (ABNORMAL) Tacrolimus, B (09/12/2021 8:35 AM CDT) P athologist Signature Tacrolimus, B 1.6 (L) 5.0-15.0 2021 [facility] (Trough) 10:37 AM CDT ng/mL Comment: ----ADDITIONAL INFORMATION---- Target steady-state trough concentration s vary depending on the type of transplant, concomitant immunosuppressio n, clinical/institutional protocols, and time post-transplant. Results should be interpreted in conjunction with this clinical information and any physic al signs/symptoms of rejection/toxicity. Testing performed by Liquid Chromatograp hy-Tandem Mass Spectrometry (LC-MS/MS). This test was developed and its performa nce characteristics determined by [facility] in a manner consistent with CLIA requirements. This test has not been cleared or approved by the U.S. Mer d and Drug Administration. Specimen Anatomical Collection Method Collection Time Receive d Time (Source) Location / / Volume Laterality Blood (Blood, 09/12/2021 8:35 AM 09/14/19 22 7:27 Venous) CDT AM CDT Trung Plasencia P.A.-C., M.S. LAB BLOOD NON ADD-ON Performing Organization Address City/State/ZIP Code Phon e Number [facility] [address] [place], [place] [address] [facility] [place] [address] Laboratory Medicine and Pathology [address] [place] CMV DNA Detect / Quant, Plasma (09/12/2021 8:35 AM CDT) Patholo gist Method Time Signature CMV DNA Undetected Undetected 2021 [facility] Detect/Quant, IU/mL 2:23 PM CDT P Comment: Result in log IU/mL is Undetected. ----ADDITIONAL INFORMATION---- The quantification range of this assay i s 35 to 10,000,000 IU/mL (1.54 log to 7.00 log IU/mL). Testing was performed u sing the tika CMV test ([employer] with the tika CookBrite0 System. Specimen Anatomical Collection Method Collection Time Receive d Time (Source) Location / / Volume Laterality Blood (Blood, 09/12/2021 8:35 AM 09/14/19 22 7:13 Venous) CDT AM CDT Trung Plasencia P.A.-C., MDemetriusS. LAB MICROBIOLOGY - BLOOD O RDERABLES Performing Organization Address City/State/ZIP Code Phon e Number [facility] [address] [place], [place] [address] [place], [place] [address]t. [place] [address] Laboratory Medicine and Pathology [address] [place] (ABNORMAL) Glucose, Fasting (09/12/2021 8:35 AM CDT) athologist Signature Glucose, P 124 (H) 70 - 100 09/12/2021 [facility] mg/dL 9:04 AM CDT Last Intake 17 hr 09/12/2021 [facility] 8:37 AM CDT Specimen Anatomical Collection Method Collection Time Receive d Time (Source) Location / / Volume Laterality Blood (Blood, 09/12/2021 8:35 AM 09/13/19 8:37 Venous) CDT AM CDT Trung Plasencia P.A.-C., M.S. LAB BLOOD NON ADD-ON Performing Organization Address City/State/ZIP Code Phon e Number [phone] [place] [address] [place] [address] [address] (ABNORMAL) Comprehensive Metabolic Panel (09/12/2021 8:35 AM CDT) Analysis Performed At Patho logist Time Signature Potassium, P 3.3 (L) 3.6 - 5.2 09/12/2021 [facility] mmol/L 9:06 AM CDT Sodium, P 131 (L) 135 - 145 09/12/2021 [facility] mmol/L 9:06 AM CDT Chloride, P 93 (L) 98 - 107 09/12/2021 [facility] mmol/L 9:06 AM CDT Bicarbonate, P 22 22 - 29 09/12/2021 [facility] mmol/L 9:06 AM CDT Anion Gap, P 16 (H) 7 - 15 09/12/2021 [facility] 9:06 AM CDT BUN (Blood Urea 59 (H) 8 - 24 09/12/2021 [facility] Nitrogen), P mg/dL 9:06 AM CDT Creatinine 3.62 (H) 0.74 - 09/12/2021 [facility] 1.35 mg/dL 9:06 AM CDT eGFR-Black/Afri 19 (L) >=60 09/12/2021 [facility] can Jordanian mL/min/BSA 9:06 AM CDT Comment: ----ADDITIONAL INFORMATION---- Estimated GFR calculated using the 2009 CKD_EPI creatinine equation. eGFR Non-Black/ 16 (L) >=60 mL/min/BSA 09/12/2021 9:06 AM CDT [facility] [place]ian Comment: ----ADDITIONAL INFORMATION---- Estimated GFR calculated using the 2009 CKD_EPI creatinine equation. Calcium, Total, P 9.3 8.8 - 10.2 mg/dL 09/12/2021 9:06 AM CDT [facility] Glucose, P CANCELED mg/dL 09/12/2021 8:37 AM CDT [facility] Comment: Duplicate test request. Result canceled by the ancillary. Protein, Total, P 6.6 6.3 - 7.9 g/dL 09/12/2021 9:06 A M CDT [facility] Albumin, P 4.1 3.5 - 5.0 g/dL 09/12/2021 9:06 AM CDT C NFL Aspartate Aminotransferase (AST), 19 8 - 48 U/L 09/12 9:06 AM CDT [facility] P Alkaline Phosphatase, P 118 40 - 129 U/L 09/12/2021 9: 06 AM CDT [facility] Alanine Aminotransferase (ALT), P 24 7 - 55 U/L 09/12 9:06 AM CDT [facility] Bilirubin, Total, P 0.4 <=1.2 mg/dL 09/12/2021 9:06 AM CDT [facility] Specimen Anatomical Collection Method Collection Time Receive d Time (Source) Location / / Volume Laterality Blood (Blood, 09/12/2021 8:35 AM 09/13/19 8:37 Venous) CDT AM CDT Trung Plasencia P.A.-C., M.S. LAB BLOOD ADD-ON Performing Organization Address City/State/ZIP Code Phon e Number [facility] [phone] [address] [place] [address] [address] (ABNORMAL) CBC without Differential (09/12/2021 8:35 AM CDT) [facility] gist Method Time Signature Hemoglobin 10.7 (L) 13.2 - 09/12/2021 [facility] 16.6 g/dL 8:56 AM CDT Hematocrit 32.4 (L) 38.3 - 09/12/2021 [facility] 48.6 % 8:56 AM CDT Erythrocytes 3.38 (L) 4.35 - 09/12/2021 [facility] 5.65 8:56 AM CDT x10(12)/L MCV 95.9 78.2 - 09/12/2021 [facility] 97.9 fL 8:56 AM CDT RBC Distrib Width 13.7 11.8 - 09/12/2021 [facility] 14.5 % 8:56 AM CDT Platelet Count 282 135 - 317 09/12/2021 [facility] x10(9)/L 8:56 AM CDT Leukocytes 9.1 3.4 - 9.6 09/12/2021 [facility] x10(9)/L 8:56 AM CDT Specimen Anatomical Collection Method Collection Time Receive d Time (Source) Location / / Volume Laterality Blood (Blood, 09/12/2021 8:35 AM 09/13/19 8:37 Venous) CDT AM CDT Trung Plasencia P.A.-C., M.S. LAB BLOOD ADD-ON Performing Organization Address City/State/ZIP Code Phon e Number [facility]- [address] [place] [address] [place] [address] System in [address] documented in this encounter Visit Diagnoses Diagnosis Transplant Liver (HCC) Medication Therapy Senior [facility] Not Anticoa gulant Colitis Cytomegalovirus (HCC) documented in this encounter Additional Health Concerns Assessment Noted Time PHQ-9 Depression Total Score: 4 11/28/2020 10:17 AM CD T documented as of this encounter Care Teams Veterinary Nurse Relationship Specialty Start Date End Date Elsewhere, Pcp PCP - General Family Medicine 07/29/17 [facility] - Laboratory Medicine 04/12/20 [place] [phone] documented as of this encounter
--- OUTSIDE RECORDS SUMMARY | 2022-04-13 12:04 | XMS_ITS | Encounter Summary ---
:1955 Author Organization [facility] Address [address] [place] [address] Care Team Providers Name Role Phone Elsewhere, Pcp Primary Care Provider Unavailable Reason for Visit Reason Comments Labs Only Encounter Details Date Type Department Care Team Description 09/21/2021 Clinical Communication Irena Gamez [facility] Labs Only Center for R, R.N. 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 - 09/21/2021 10:39 AM CDT Please review labs below. Bruce [...] Prednisone 5 mg daily Labs: Recent Labs 09/19/21 0839 09/12/21 0835 09/05/21 0824 08/29/21 0724 08/22/21 0924 08/14/21 0820 TACROLIMUS 1.5 L 1.6 L 1.4 L 2.5 L 1.8 L 4.0 L Recent Labs 09/19/21 0840 09/19/21 0839 09/12/21 0835 09/05/21 0824 08/14/21 0821 08/14/21 0820 07/20/21 0900 07/16/21 0816 07/10/21 0928 HGB 10.6 L -- 10.7 L 10.6 L < > 9.6 L 10.1 L 10.4 L 10.1 L HCT 32.3 L -- 32.4 L 32.6 L < > 30.3 L 31.4 L 32.0 L 31.2 L WBC 7.6 -- 9.1 8.1 < > 7.4 5.2 5.6 4.7 NEUTROPHILS -- -- -- -- -- -- 3.5 4.10 3.61 PLT 264 -- 282 279 < > 282 306 266 209 NA -- 131 L 131 L 135 < > 130 L 135 -- 137 KPLASMA -- 3.5 L 3.3 L 3.9 < > -- -- -- -- KSERUM -- -- -- -- -- 3.9 3.7 -- 4.1 GLUCOSE 124 H CANCELED CANCELED 124 H CANCELED 112 H < > CANCELED 106 H -- CANCELED 118 H BUN -- 52 H 59 H 52 H < > 27 H 41 H -- 25 H CREATININE -- 4.01 H 3.62 H 3.53 H < > 3.05 H 3.79 H -- 2.75 H ALKPHOS -- 116 118 110 < > 119 140 H -- 151 H AST -- 16 19 20 < > 17 23 -- 29 ALT -- 19 24 23 < > 14 21 -- 34 BILITOT -- 0.4 0.4 0.4 < > 0.4 0.4 -- 0.4 ALBUMIN -- 4.0 4.1 4.0 < > 3.8 3.6 -- 3.9 < > = values in this interval not displayed. Serologies: Recent Labs 09/19/21 0839 09/12/21 0835 09/05/21 0823 08/29/21 0724 CMVQUANT <35 A Undetected Undetected <35 A [...] R.N. *All labs are now found in get2play - Lab - Flowsheets. For further review of labs, please review there or under Synopsis* documented in this encounter Plan of Treatment Upcoming Encounters Date Type Specialty Care Team Description 04/24/2022 Appointment Laboratory Medicine Angélica Granger P.A.-Janette [address] [place] [phone] 04/25/2022 Office Visit Otorhinolaryngology Dex Matta APRN, C.N.P., M.S.N. [address] [place] [phone] 05/08/2022 Appointment Laboratory Medicine Angélica Granger P.ADemetrius-CDemetrius [address] [place] [phone] 05/08/2022 Clinical Admitting/Central Communication Scheduling 05/10/2022 Appointment Radiology Jeremie Rose M.D. [address] [place] [phone] 05/10/2022 Comprehensive Visit Orthopedic Surgery Warner Graves M.D. [address] [place] [address] [phone] 05/22/2022 Appointment Laboratory Medicine Angélica Granger P.A.-C. [address] [place] [phone] 06/05/2022 Appointment Laboratory Medicine Angélica Granger P.A.-C. [address] [place] [phone] 06/19/2022 Appointment Laboratory Medicine Angélica Granger P.A.-C. [address] [place] [phone] 07/03/2022 Appointment Laboratory Medicine Angélica Granger P.A.-C. [address] [place] [phone] 07/17/2022 Appointment Laboratory Medicine Angélica Granger P.A.-C. [address] [place] [phone] 07/31/2022 Appointment Laboratory Medicine Angélica Granger P.A.-C. [address] [place] [phone] 08/14/2022 Appointment Laboratory Angélica Royal P.A.-C. [address] [place] [phone] 08/28/2022 Appointment Laboratory Medicine Angélica Granger P.A.-C. [address] [place] [phone] documented as of this encounter Visit Diagnoses Not on filedocumented in this encounter Additional Health Concerns Assessment Noted Time PHQ-9 Depression Total Score: 4 11/28/2020 10:17 AM CD T documented as of this encounter Care Teams Parer Relationship Specialty Start Date End Date Elsewhere, Pcp PCP - General Family Medicine 07/29/17 [facility] - Laboratory Medicine 04/12/20 [place] [phone] documented as of this encounter
--- OUTSIDE RECORDS SUMMARY | 2022-04-13 12:04 | XMS_ITS | Encounter Summary ---
:1955 Author Organization [facility] Address [address] [place] [address] Care Team Providers Name Role Phone Elsewhere, Pcp Primary Care Provider Unavailable Reason for Visit Reason Comments Communication Add-on Encounter Details Date Type Department Care Team Description 09/26/2021 Clinical Curt Reid, Critical access hospital Communication Center for Angélica Stern, (Add-on) Transplantation and P.A.-C. Clinical Regeneration [address] [facility], [address] [place] [phone] Social History Tobacco Use Types Packs/Day Years [...] More than 4 times per year 12/15/2021 alevism services? 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 I am trying to coordinate with his dialysis he has in [place]. Wondering if you would be willing to add him on in the afternoon of , December 06? Thank you documented in this encounter Plan of Treatment Upcoming Encounters Date Type Specialty Care Team Description 04/24/2022 Appointment Laboratory Medicine Angélica Granger P.A.-C. [address] [place] [phone] 04/25/2022 Office Visit Otorhinolaryngology Dex Matta APRN, C.N.P., M.S.N. [address] [place] [phone] 05/08/2022 Appointment Laboratory Medicine Angélica Granger P.A.-C. [address] [place] [phone] 05/08/2022 Clinical Admitting/Central Communication Scheduling 05/10/2022 Appointment Radiology Jeremie Rose M.D. [address] [place] [phone] 05/10/2022 Comprehensive Visit Orthopedic Surgery Warner Graves M.D. [address] [place] [phone] 05/22/2022 Appointment Laboratory Medicine Angélica Granger P.A.-C. [address] [place] [phone] 06/05/2022 Appointment Laboratory Medicine Angélica Granger P.A.-C. [address] [place] [phone] 06/19/2022 Appointment Laboratory Medicine Angélica Granger P.A.-C. [address] [place] [phone] 07/03/2022 Appointment Laboratory Medicine Angélica Granger P.A.-C. [address] [place] [phone] 07/17/2022 Appointment Laboratory Medicine Angélica Granger P.A.-C. [address] [place] [phone] 07/31/2022 Appointment Laboratory Medicine Angélica Granger P.A.-C. [address] [place] [phone] 08/14/2022 Appointment Laboratory Medicine Angélica Granger P.A.-C. [address] [place] [phone] 08/28/2022 Appointment Laboratory Medicine Angélica Granger P.A.-C. [address] [place] [phone] documented as of this encounter Visit Diagnoses Not on filedocumented in this encounter Additional Health Concerns Assessment Noted Time PHQ-9 Depression Total Score: 4 11/28/2020 10:17 AM CD T documented as of this encounter Care Teams Claims Customer Service Representative Relationship Specialty Start Date End Date Elsewhere, Pcp PCP - General Family Medicine 07/29/17 [facility] - Laboratory Medicine 04/12/20 [place] [phone] documented as of this encounter
--- OUTSIDE RECORDS SUMMARY | 2022-04-13 12:04 | XMS_ITS | Encounter Summary ---
:1955 Author Organization [facility] Address [address] [place] [address] Care Team Providers Name Role Phone Elsewhere, Pcp Primary Care Provider Unavailable Encounter Details Date Type Department Care Team Description 09/27/2021 Hospital Encounter Department of Trung Plasencia Liver (HCC); Laboratory Medicine Edmundo Stern, Medicati on Therapy Senior Animal Trainer Not Anticoagulant; in Jimmie Blake M.S. Colitis Cytomegalovirus (HCC) [address] [phone] [place], [place] [phone] (Work) [phone] Social History Tobacco Use Types Packs/Day Years [...] More than 4 times per year 12/15/2021 amish services? 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 [address] [place] [phone] 04/25/2022 Office Visit Otorhinolaryngology Dex Matta APRN, C.N.P., M.S.N. [address] [place] [phone] 05/08/2022 Appointment Laboratory Medicine Angélica Granger P.A.-C. [address] [place] [phone] 05/08/2022 Clinical Admitting/Central Communication Scheduling 05/10/2022 Appointment Radiology Jeremie Rose M.D. [address] [place] [phone] 05/10/2022 Comprehensive Visit Orthopedic Surgery Warner Graves M.D. [address] [place] [phone] 05/22/2022 Appointment Laboratory Medicine Angélica Granger P.A.-C. [address] [place] [phone] 06/05/2022 Appointment Laboratory Medicine Angélica Granger P.A.-C. [address] [place] [phone] 06/19/2022 Appointment Laboratory Medicine Angélica Granger P.A.-C. [address] [place] [phone] 07/03/2022 Appointment Laboratory Medicine Angélica Granger P.A.-C. [address] [place] [phone] 07/17/2022 Appointment Laboratory Medicine Angélica Granger P.A.-C. [address] [place] [phone] 07/31/2022 Appointment Laboratory Medicine Angélica Granger P.A.-C. [address] [place] [phone] 08/14/2022 Appointment Laboratory Medicine Angélica Granger P.A.-C. [address] [place] [phone] 08/28/2022 Appointment Laboratory Medicine Angélica Granger P.A.-C. [address] [place] [phone] documented as of this encounter Procedures Procedure Name Priority Date/Time Associated Diagnosis Comme nts CMV DNA DETECT/QUANT, Routine 09/27/2021 10:37 Transplan t Liver (HCC) Results for this P AM CDT Medication Therapy procedure are in Fdc Not the results Anticoagulant section. Colitis Cytomegalovirus (HCC) TACROLIMUS LEVEL, B Routine 09/27/2021 10:37 Transplant Liver (HCC) Results for this AM CDT Medication Therapy procedure are in Fdc Not the results Anticoagulant section. Colitis Cytomegalovirus (HCC) CBC WITHOUT Routine 09/27/2021 10:37 Transplant Live r (HCC) Results for this DIFFERENTIAL, B AM CDT Medication Therapy proced ure are in Fdc Not the results Anticoagulant section. Colitis Cytomegalovirus (HCC) GLUCOSE, FASTING, S/P Routine 09/27/2021 10:37 Transplan t Liver (HCC) Results for this AM CDT Medication Therapy procedure are in Senior Animal Trainer Not the results Anticoagulant section. Colitis Cytomegalovirus (HCC) COMPREHENSIVE Routine 09/27/2021 10:37 Transplant Live r (HCC) Results for this METABOLIC PANEL, S/P AM CDT Medication Therapy p rocedure are in Senior Animal Trainer Not the results Anticoagulant section. Colitis Cytomegalovirus (HCC) documented in this encounter Results (ABNORMAL) Tacrolimus, B (09/27/2021 10:37 AM CDT) athologist Signature Tacrolimus, B 1.4 (L) 5.0-15.0 09/28/2021 [facility] (Trough) 12:36 PM CDT ng/mL Comment: ----ADDITIONAL INFORMATION---- Target steady-state trough concentration s vary depending on the type of transplant, concomitant immunosuppressio n, clinical/institutional protocols, and time post-transplant. Results should be interpreted in conjunction with this clinical information and any physic al signs/symptoms of rejection/toxicity. Testing performed by Liquid Chromatograp hy-Tandem Mass Spectrometry (LC-MS/MS). This test was developed and its performa nce characteristics determined by [facility] in a manner consistent with CLIA requirements. This test has not been cleared or approved by the U.S. Mer d and Drug Administration. Specimen Anatomical Collection Method Collection Time Receive d Time (Source) Location / / Volume Laterality Blood (Blood, 09/27/2021 10:37 09/28/2021 7:39 Venous) AM CDT AM CDT Trung Plasencia P.A.-C., M.S. LAB BLOOD NON ADD-ON Performing Organization Address City/State/ZIP Code Phon e Number [facility] [address] [place], [place] [address] [facility] [place] [address] Laboratory Medicine and Pathology [address] [place] (ABNORMAL) CMV DNA Detect / Quant, Plasma (09/27/2021 10:37 AM CDT) [facility] gist Method Time Signature CMV DNA <35 (A) Undetected 09/28/2021 [facility] Detect/Quant, IU/mL 8:13 PM CDT P Comment: Result in log [...] u sing the tika CMV test ([employer] with the tika 6800 System. Specimen Anatomical Collection Method Collection Time Receive d Time (Source) Location / / Volume Laterality Blood (Blood, 09/27/2021 10:37 09/28/2021 7:09 Venous) AM CDT AM CDT Trung Plasencia P.A.-C., M.S. LAB MICROBIOLOGY - BLOOD O RDERABLES Performing Organization Address City/[facility]/ZIP [facility] Phon e Number [facility] [address] [place], [place] [address] [place] [address] C[facility] [place] [address] Laboratory Medicine and Pathology [address] [place] (ABNORMAL) Glucose, Fasting (09/27/2021 10:37 AM CDT) P athologist Signature Glucose, P 336 (H) 70 - 100 09/27/2021 [facility] mg/dL 10:56 AM CDT Last Intake 3 hr 09/27/2021 [facility] 10:38 AM CDT Specimen Anatomical Collection Method Collection Time Receive d Time (Source) Location / / Volume Laterality Blood (Blood, 09/27/2021 10:37 09/27/2021 Venous) AM CDT 10:38 AM CDT Trung Plasencia P.A.-C., M.S. LAB BLOOD NON ADD-ON Performing Organization Address City/[facility] Phon e Number [address] [address] [place] [address] (ABNORMAL) Comprehensive Metabolic Panel (09/27/2021 10:37 AM CDT) Analysis Performed At Patho logist Time Signature Potassium, P 4.4 3.6 - 5.2 09/27/2021 [facility] mmol/L 10:58 AM CDT Sodium, P 128 (L) 135 - 145 09/27/2021 [facility] mmol/L 10:58 AM CDT Chloride, P 92 (L) 98 - 107 09/27/2021 [facility] mmol/L 10:58 AM CDT Bicarbonate, P 22 22 - 29 09/27/2021 [facility] mmol/L 10:58 AM CDT Anion Gap, P 14 7 - 15 09/27/2021 [facility] 10:58 AM CDT BUN (Blood Urea 51 (H) 8 - 24 09/27/2021 [facility] Nitrogen), P mg/dL 10:58 AM CDT Creatinine 3.50 (H) 0.74 - 09/27/2021 [facility] 1.35 mg/dL 10:58 AM CDT eGFR-Black/Afri 20 (L) >=60 09/27/2021 [facility] can Maldivian mL/min/BSA 10:58 AM CDT Comment: ----ADDITIONAL INFORMATION---- Estimated GFR calculated using the 2009 CKD_EPI creatinine equation. eGFR Non-Black/ 17 (L) >=60 mL/min/BSA 09/27/2021 10:58 AM CDT [facility] Maldivian Comment: ----ADDITIONAL INFORMATION---- Estimated GFR calculated using the 2009 CKD_EPI creatinine equation. Calcium, Total, P 9.1 8.8 - 10.2 mg/dL 09/27/2021 10:5 8 AM CDT [facility] Glucose, P CANCELED mg/dL 09/27/2021 10:38 AM CDT [facility] Comment: Duplicate test request. Result canceled by the ancillary. Protein, Total, P 6.3 6.3 - 7.9 g/dL 09/27/2021 10:58 AM CDT [facility] Albumin, P 4.1 3.5 - 5.0 g/dL 09/27/2021 10:58 AM CDT [facility] Aspartate Aminotransferase (AST), 14 8 - 48 U/L 09/27 10:58 AM CDT [facility] P Alkaline Phosphatase, P 117 40 - 129 U/L 09/27/2021 10 :58 AM CDT [facility] Alanine Aminotransferase (ALT), P 17 7 - 55 U/L 09/27 10:58 AM CDT [facility] Bilirubin, Total, P 0.3 <=1.2 mg/dL 09/27/2021 10:58 A M CDT [facility] Specimen Anatomical Collection Method Collection Time Receive d Time (Source) Location / / Volume Laterality Blood (Blood, 09/27/2021 10:37 09/27/2021 Venous) AM CDT 10:38 AM CDT Trung Plasencia P.A.-C. MDemetriusS. LAB BLOOD ADD-ON Performing Organization Address [facility] Phon e Number [address] [address] [place] [address] (ABNORMAL) CBC without Differential (09/27/2021 10:37 AM CDT) [facility] gist Method Time Signature Hemoglobin 10.7 (L) 13.2 - 09/27/2021 [facility] 16.6 g/dL 10:45 AM CDT Hematocrit 33.1 (L) 38.3 - 09/27/2021 [facility] 48.6 % 10:45 AM CDT Erythrocytes 3.32 (L) 4.35 - 09/27/2021 [facility] 5.65 10:45 AM CDT x10(12)/L MCV 99.7 (H) 78.2 - 09/27/2021 [facility] 97.9 fL 10:45 AM CDT RBC Distrib Width 14.0 11.8 - 09/27/2021 [facility] 14.5 % 10:45 AM CDT Platelet Count 267 135 - 317 09/27/2021 [facility] x10(9)/L 10:45 AM CDT Leukocytes 9.3 3.4 - 9.6 09/27/2021 [facility] x10(9)/L 10:45 AM CDT Specimen Anatomical Collection Method Collection Time Receive d Time (Source) Location / / Volume Laterality Blood (Blood, 09/27/2021 10:37 09/27/2021 Venous) AM CDT 10:38 AM CDT Trung Plasencia P.A.-C. MDemetriusS. 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
--- OUTSIDE RECORDS SUMMARY | 2022-04-13 12:04 | XMS_ITS | Encounter Summary ---
:1955 Author Organization [facility] Address [address] [place] [address] Care Team Providers Name Role Phone Elsewhere, Pcp Primary Care Provider Unavailable Reason for Visit Outpatient (Routine) - Closed Specialty Diagnoses / Procedures Referred By Contact Refer red To Contact Nephrology and Dario Shafer [place] [facility] M.D., Ph.D. [address] [place] [address] Referral ID Status Reason Start Date Expiration Date Visits Requ ested Visits Authorized [id number] Closed 07/24/2021 07/24/2022 1 1 Encounter Details Date Type Department Care Team Description 09/11/2021 Nurse Only Division of Nephrology and Dario Del Rio M.D., Ph.D. [address] [place] [phone] Hypertension in [facility], Ryan Hauser, RDemetriusNDemetrius [place] [address] [place] [phone] Social History Tobacco Use Types Packs/Day [...] or relatives? How often do you attend protestant or More than 4 times per year 12/15/2021 alevism services? Do you belong to any clubs or No 12/15/2021 organizations such as protestant groups, unions, [employer] or athletic groups, or school groups? 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 - 09/11/2021 2:15 PM CDT REFERRAL Dario Victor M.D. CHIEF COMPLAINT/PURPOSE OF VISIT REASON FOR REFERRAL: ??7 week follow-up post AV fistula creation HISTORY OF PRESENT ILLNESS ACCESS: ??Nenana Arterial Venous Fistula ?Date placed - 07/24/21 ?Provider - Dario Victor M.D. LOCATION OF ACCESS: ??Right brachial cephalic PERTINENT PROCEDURAL HISTORY: ??Patient returning for 7 week follow up of his right brachial cephalic AV fistula. Dialyzes on a Friday, Friday, Friday schedule at [facility] via right palindrome catheter. ??Please see today's ultrasound in EPIC: FLOW VOLUMES: 09/11/21 = 1410 mL/min PHYSICAL EXAMINATION Arteriovenous fistula: Pulses: ?? radial +2 ulnar +2 Strengths - WNL, equal Capillary refill - brisk Color - ??WNL, equal Temp - WNL, equal Thrill - strong Bruit - strong Fistula measurements on SonoSite: low - 0.79 cm in diameter and 0.17 cm deep ?? low-mid - 0.88 cm in diameter and 0.23 cm deep mid - 0.89 cm in diameter and 0.16 cm deep distally - 0.90 cm in diameter and 0.24 cm deep Incision: Healing - has healed nicely Pain - denies Swelling - none Exercises - endorses IMPRESSION/REPORT/PLAN The fistula is patent with a good thrill and bruit. He has no hand complaints. The incision has healed nicely. I can palpate his pulses. Good capillary refill with equal strengths. I encouraged him to keep performing his hand exercises. Off the formal US flow volumes were measured at 1410 mL/min. ?? I sent a reminder to the access team for tomorrow to notify [facility] dialysis unit that they may begin cannulation when the fistula is 8 weeks old on 09/18/21 (since [facility] is a [facility]). ?? documented in this encounter Plan of Treatment Upcoming Encounters Date Type Specialty Care Team Description 04/24/2022 Appointment Laboratory Medicine Angélica Granger P.A.-C. [address] [place] [phone] 04/25/2022 Office Visit Otorhinolaryngology Dex Matta APRN, C.N.P., M.S.N. [address] [place] [phone] 05/08/2022 Appointment Laboratory Medicine Angélica Granger P.A.-C. [address] [place] [phone] 05/08/2022 Clinical Admitting/Central Communication Scheduling 05/10/2022 Appointment Radiology Jeremie Rose M.D. [address] [place] [phone] 05/10/2022 Comprehensive Visit Orthopedic Surgery Warner Graves M.D. [address] [place] [phone] 05/22/2022 Appointment Laboratory Medicine Angélica Granger P.A.-C. [address] [place] [phone] 06/05/2022 Appointment Laboratory Medicine Angélica Granger P.A.-C. [address] [place] [phone] 06/19/2022 Appointment Laboratory Medicine Angélica Granger P.A.-C. [address] [place] [phone] 07/03/2022 Appointment Laboratory Medicine Angélica Granger P.A.-C. [address] [place] [phone] 07/17/2022 Appointment Laboratory Medicine Angélica Granger P.A.-C. [address] [place] [phone] 07/31/2022 Appointment Laboratory Medicine Angélica Granger P.A.-C. [address] [place] [phone] 08/14/2022 Appointment Laboratory Medicine Angélica Granger P.A.-C. [address] [place] [phone] 08/28/2022 Appointment Laboratory Medicine Angélica Granger P.A.-C. [address] [place] [phone] documented as of this encounter Visit Diagnoses Not on filedocumented in this encounter Additional Health Concerns Assessment Noted Time PHQ-9 Depression Total Score: 4 11/28/2020 10:17 AM CD T documented as of this encounter Care Teams Car Pick Up Driver Relationship Specialty Start Date End Date Elsewhere, Pcp PCP - General Family Medicine 07/29/17 [facility] - Laboratory Medicine 04/12/[address] [address] documented as of this encounter
--- OUTSIDE RECORDS SUMMARY | 2022-04-13 12:04 | XMS_ITS | Encounter Summary ---
:1955 Author Organization [facility] Address [address] [place] [address] Care Team Providers Name Role Phone Elsewhere, Pcp Primary Care Provider Unavailable Reason for Referral Outpatient (Routine) - Closed Specialty Diagnoses / Procedures Referred By Contact Refer red To Contact Diagnoses Encounter For Preprocedural Cardiovascular Examination Chronic Kidney Disease Stage 5 GFR Less Than 15 Dialysis Dependent (HCC) Pretransplant Recipient Evaluation Exam Willis Herrera M.D. [facility] Procedures Echo Stress [address] [place], [place] [address] Referral ID Status Reason Start Date Expiration Date Visits Requ ested Visits Authorized [id number] Closed 09/27/2021 09/27/2022 1 1 Transplant (Routine) - Closed Specialty Diagnoses / Procedures Referred By Contact Refer red To Contact Transplant Surgery / Diagnoses Chronic Kidney Disease Stage 5 GFR Less Than 15 Dialysis Dependent (HCC) Pretransplant Recipient Evaluation Exam Willis Herrera [facility] Transplant Sada [address] [place] [address] Referral ID Status Reason Start Date Expiration Date Visits Requ ested Visits Authorized [id number] Closed 09/27/2021 09/27/2022 1 1 Scheduling Instructions Virtual Visits Included: [ x] Yes [ ] No Type of Appointment: [ ] Eval [ x] [facility] Specific Provider: Transplant (Routine) - Closed Specialty Diagnoses / Procedures Referred By Contact Refer red To Contact Transplant Surgery / Diagnoses Chronic Kidney Disease Stage 5 GFR Less Than 15 Dialysis Dependent (HCC) Pretransplant Recipient Evaluation Exam Willis Herrera [facility] on Transplant M.D. [address] [place] [address] Referral ID Status Reason Start Date Expiration Date Visits Requ ested Visits Authorized [id number] Closed 09/27/2021 09/27/2022 1 1 Scheduling Instructions Virtual Visits Included: [ x] Yes [ ] No Type of Appointment: [ ] Eval [ x] [facility] Specific Provider: Transplant (Routine) - Closed Specialty Diagnoses / Procedures Referred By Contact Refer red To Contact Transplant Surgery / Diagnoses Chronic Kidney Disease Stage 5 GFR Less Than 15 Dialysis Dependent (HCC) Pretransplant Recipient Evaluation Exam Willis Herrera [facility] on Transplant M.D. [address] [place] [address] Referral ID Status Reason Start Date Expiration Date Visits Requ ested Visits Authorized [id number] Closed 09/27/2021 09/27/2022 1 1 Scheduling Instructions Virtual Visits Included: [ x] Yes [ ] No Type of Appointment: [ ] Eval [ x] [facility] Specific Provider: Reason for Visit Reason Comments Waitlist Maintenance Encounter Details Date Type Department Care Team Description 09/26/2021 Clinical Curt Bhardwaj, Wait list Communication Center for Patricia Azevedo Maintenance Transplantation and R.N., C.C.T. C. 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 - 09/27/2021 10:55 AM CDT Addended by: PATRICIA PINTO on: 09/27/2021 10:55 AM Modules accepted: Orders, SmartSet Telephone Encounter - Yolie Cross - 09/26/2021 12:19 PM CDT It looks like patient is scheduled for appts currently on 12/04 and 12/[address] ordersonce you are able. Thank you Telephone Encounter - Yolie Cross - 09/26/2021 11:39 AM CDT Active request was placed by post liver team for a request for November. Is patient due for [facility] appts? Please let us know so we can schedule. They placed for regular Neph; so just wanting to verify if this is for waitlist appts and not anything else. Thank you! documented in this encounter Plan of Treatment Upcoming Encounters Date Type Specialty Care Team Description 04/24/2022 Appointment Laboratory Medicine Angélica Granger P.A.-CDemetrius [address] [place] [phone] 04/25/2022 Office Visit Otorhinolaryngology Dex Matta APRN, C.N.P., M.S.N. [address] [place] [phone] 05/08/2022 Appointment Laboratory Medicine Angélica Granger P.A.-CDemetrius [address] [place] [phone] 05/08/2022 Clinical Admitting/Central Communication Scheduling 05/10/2022 Appointment Radiology Jeremie Rose M.D. [address] [place] [phone] 05/10/2022 Comprehensive Visit Orthopedic Surgery Warner Graves M.D. [address] [place] [phone] 05/22/2022 Appointment Laboratory Medicine Angélica Granger P.A.-C. [address] [place] [phone] 06/05/2022 Appointment Laboratory Medicine Angélica Granger P.A.-C. [address] [place] [phone] 06/19/2022 Appointment Laboratory Medicine Angélica Granger P.A.-C. [address] [place] [phone] 07/03/2022 Appointment Laboratory Medicine Angélica Granger P.A.-C. [address] [place] [phone] 07/17/2022 Appointment Laboratory Medicine Angélica Granger P.A.-C. [address] [place] [phone] 07/31/2022 Appointment Laboratory Medicine Angélica Granger P.A.-C. [address] [place] [phone] 08/14/2022 Appointment Laboratory Angélica Royal P.A.-C. [address] [place] [phone] 08/28/2022 Appointment Laboratory Medicine Angélica Granger P.A.-C. [address] [place] [phone] Scheduled Referrals Name Type Priority Associated Order Schedule Diagnoses Transplant Kidney Outpatient Referral Routine Chronic Kidney E xpected: office visit Disease Stage 5 GFR 12/05/19 22, (clinic) Less Than 15 Expires: Dialysis Dependent 3 ([facility]) Pretransplant Recipient Evaluation Exam Transplant Kidney Outpatient Referral Routine Chronic Kidney E xpected: office visit Disease Stage 5 GFR 12/05/19 22, (clinic) Less Than 15 Expires: Dialysis Dependent 3 ([facility]) Pretransplant Recipient Evaluation Exam Transplant Kidney Outpatient Referral Routine Chronic Kidney E xpected: office visit Disease Stage 5 GFR 12/05/19 22, (clinic) Less Than 15 Expires: Dialysis Dependent 3 ([facility]) Pretransplant Recipient Evaluation Exam documented as of this encounter Results ECHO STRESS 2D WITH COLOR, LIMITED DOPPLER AND CONTRAST (12/10/2021 9:38 AM CDT) [facility] Method Time Signature Ejection Fraction [...] Documents. Willis Herrera M.D. CV ECHO PROCEDURES HBc Total Ab Scrn, S (12/05/2021 7:22 AM CDT) athologist Signature HBc Total Ab Negative Negative [facility], S 11:47 AM CDT Specimen Anatomical Collection Method Collection Time Receive d Time (Source) Location / / Volume Laterality Blood (Blood, 12/05/2021 7:22 AM 12/06/19 Venous) CDT 10:11 AM CDT Willis Herrera M.D. LAB MICROBIOLOGY - BLOOD ORD ERABLES Performing Organization Address City/State/ZIP Code Phon e Number [facility] [address] [place] [address] [place] [address] Laboratory Medicine and Pathology [address] [place] QuantiFERON-Tb Gold Plus, Blood (12/05/2021 7:22 AM CDT) athologist Signature QuantiFERON-TB Negative Negative 12/06/2021 [facility] Gold Plus 10:18 AM CDT Result Comment: No interferon-gamma response to M. tuber culosis antigens was detected. Latent infection with M. tuberculosis is unlikely. A single ne gative result does not exclude infection with M. tuber culosis. In patients at high risk for M.tuberculo sis infection, a second test should be considered in ac cordance with the 2017 ATS/IDSA/CDC Clinical Prac omega Guidelines for Diagnosis of Tuberculosis in Adults and Children [Kortney FITZGERALD et. al. Clin. Infect. Dis. 2017;64(2):111-115]. The reference range for the 'TB1 Ag migdalia s Nil Result' and 'TB2 Ag minus Nil Result' is an Inte rferon-gamma level <0.35 IU/mL. TB1 Ag minus Nil Result 0.01 IU/mL 12/06/2021 10:18 AM CDT [facility] TB2 Ag minus Nil Result -0.01 IU/mL 12/06/2021 10:18 AM CDT [facility] Mitogen minus Nil Result 9.93 IU/mL 12/06/2021 10:1 8 AM CDT [facility] Nil Result 0.07 IU/mL 12/06/2021 10:18 AM CDT [facility] Specimen Anatomical Collection Method Collection Time Receive d Time (Source) Location / / Volume Laterality Blood (Blood, 12/05/2021 7:22 AM 12/06/19 9:38 Venous) CDT AM CDT Narrative [facility] [address] [facility] - 12/06/2021 10:18 AM CDT Specimen Information: Specimen ID: [id number] Specimen Type: Blood Specimen Collection Start Date: 12/06/19 ??7:22 AM Specimen Received Date: 12/05/2021 ??9:3 8 AM Specimen ID: [id number] Specimen Type: Blood Specimen Collection Start Date: 12/06/19 ??7:22 AM Specimen Received Date: 12/05/2021 ??9:3 8 AM Specimen ID: [id number] Specimen Type: Blood Specimen Collection Start Date: 12/06/19 ??7:23 AM Specimen Received Date: 12/05/2021 ??9:3 8 AM Specimen ID: [id number] Specimen Type: Blood Specimen Collection Start Date: 12/06/19 ??7:22 AM Specimen Received Date: 12/05/2021 ??9:3 8 AM Willis Herrera M.D. LAB MICROBIOLOGY - BLOOD ORD ERABLES Performing Organization Address City/State/ZIP Code Phon e Number [facility] [address] [place] [address] [place], [place] [address]. [place] [address] Laboratory Medicine and Pathology [address] [place] HLA Class II SAB Antibody Screen (12/05/2021 7:22 AM CDT) [facility] Method Time Signature Class II SAB Negative Not Applicable 12/05/2021 [facility] Overall Result 4:24 PM CDT SAB DRB1 NONE 12/05/2021 [facility] Specificity 4:24 PM CDT SAB [id number] NONE 12/05/2021 [facility] Specificity 4:24 PM CDT SAB DQB1 NONE 12/05/2021 [facility] Specificity 4:24 PM CDT SAB DPB1 NONE 12/05/2021 [facility] Specificity 4:24 PM CDT Comment: ----ADDITIONAL INFORMATION---- Method: Luminex Flow Cytometry CLIA: [id number] ??CLIA Business Continuity Planning Director: KRISTAL MIMS MD,PhD Specimen Anatomical Collection Method Collection Time Receive d Time (Source) Location / / Volume Laterality Blood (Blood, 12/05/2021 7:22 AM 12/06/19 22 9:13 Venous) CDT AM CDT Willis Herrera M.D. LAB HLA ORDERABLES Performing Organization Address [facility] Phon e Number [facility] - 200 [place], [place] [address] [facility] [place] [place] [address] [facility] 200 [facility] HLA Class I SAB Antibody Screen (12/05/2021 7:22 AM CDT) [facility] Method Time Signature Class I SAB Negative Not Applicable 12/05/2021 [facility] Overall Result 4:16 PM CDT SAB A NONE 12/05/2021 [facility] Specificity 4:16 PM CDT SAB B NONE 12/05/2021 [facility] Specificity 4:16 PM CDT SAB C NONE 12/05/2021 [facility] Specificity 4:16 PM CDT Comment: ----ADDITIONAL INFORMATION---- Method: Luminex Flow Cytometry CLIA: [id number] ??CLIA Business Continuity Planning Director: KRISTAL MIMS MD,PhD Specimen Anatomical Collection Method Collection Time Receive d Time (Source) Location / / Volume Laterality Blood (Blood, 12/05/2021 7:22 AM 12/06/19 22 9:13 Venous) CDT AM CDT Willis Herrera M.D. LAB HLA ORDERABLES Performing Organization Address [facility] Phon e Number [address] [facility] [place] [place] [address] [facility] Main [place] [address] HIV-1/-2 Ag and Ab Screen, Plasma (12/05/2021 7:22 AM CDT) athologist Signature HIV-1/-2 Ag Negative Negative 12/05/2021 [facility] and Ab Screen, 11:00 AM CDT P Comment: Negative result does not rule out HIV in fection. If exposure to HIV infection occurred <14 d ays ago, contact the laboratory to request additi on of HIV-1 RNA detection / quantification test (HIV QN). Specimen Anatomical Collection Method Collection Time Receive d Time (Source) Location / / Volume Laterality Blood (Blood, 12/05/2021 7:22 AM 12/06/19 Venous) CDT 10:11 AM CDT Willis Herrera M.D. LAB MICROBIOLOGY - BLOOD ORD ERABLES Performing Organization Address City/[facility]/ZIP Code Phon e Number [facility] [place] [address] [facility] [place] [address] Laboratory Medicine and Pathology [address] [place] [address] Dr. MURILLO HCV Ab Scrn w/Reflex to HCV PCR, Serum (12/05/2021 7:22 AM CDT) athologist [facility] HCV Ab Screen, Negative Negative 12/05/2021 [facility] S 11:57 AM CDT Comment: Ddtrkg-ck-yguken ratio is <1.00 . Specimen Anatomical Collection Method Collection Time Receive d Time (Source) Location / / Volume Laterality Blood (Blood, 12/05/2021 7:22 AM 12/06/19 Venous) CDT 10:11 AM CDT Willis Herrera M.D. LAB MICROBIOLOGY - BLOOD ORD ERABLES Performing Organization Address City/State/ZIP Code Phon e Number [facility] [address] [place] [address] [facility] [place] [address] Laboratory Medicine and Pathology [address] [place] [address] Dr. MURILLO HBs Antigen Scrn, S (12/05/2021 7:22 AM CDT) athologist Signature HBs Antigen Negative Negative 12/05/2021 [facility] Scrn, S 11:39 AM CDT Specimen Anatomical Collection Method Collection Time Receive d Time (Source) Location / / Volume Laterality Blood (Blood, 12/05/2021 7:22 AM 12/06/19 Venous) CDT 10:11 AM CDT Willis Herrera M.D. LAB MICROBIOLOGY - BLOOD ORD ERABLES Performing Organization Address [facility] Phon e Number [address] [place] [address] [facility] [place] [address] Laboratory Medicine and Pathology [address] [place] [address] Dr. MURILLO HBs Antibody Scrn, S (12/05/2021 7:22 AM CDT) athologist Signature HBs Antibody Positive 12/05/2021 [facility] Scrn, S 11:48 AM CDT Comment: Patient is considered to be immune to in fection with HBV. ----REFERENCE VALUE---- Unvaccinated: Negative Vaccinated: Positive HBs Antibody, Quantitative, S 46.0 mIU/mL 12/05/2021 11:48 AM CDT [facility] Comment: ----REFERENCE VALUE---- Unvaccinated: <5.0 Vaccinated: >=12.0 Specimen Anatomical Collection Method Collection Time Receive d Time (Source) Location / / Volume Laterality Blood (Blood, 12/05/2021 7:22 AM 12/06/19 Venous) CDT 10:11 AM CDT Willis Herrera M.D. LAB MICROBIOLOGY - BLOOD ORD ERABLES Performing Organization Address City/[facility] Phon e Number [address] [place] [address] [facility] [place] [address] Laboratory Medicine and Pathology [address] [place] [address] Dr. MURILLO Hepatitis A IgM Ab, Serum (12/05/2021 7:22 AM CDT) athologist Signature Hepatitis A Negative Negative 12/05/2021 [facility] IgM Ab, S 10:55 AM CDT Comment: Result does not exclude the possibility of exposure to hepatitis A virus. ??Antibody level duri ng early infection stage may be below the limit of detectio n of the assay. Specimen Anatomical Collection Method Collection Time Receive d Time (Source) Location / / Volume Laterality Blood (Blood, 12/05/2021 7:22 AM 12/06/19 Venous) CDT 10:11 AM CDT Willis Herrera M.D. LAB MICROBIOLOGY - BLOOD ORD ERABLES Performing Organization Address City/[facility]/ZIP Code Phon e Number [facility] [address] [place], [place] [address] [facility] [place] [address] Laboratory Medicine and Pathology [address] [place] [address] Dr. MURILLO Hepatitis A IgG Ab, Serum (12/05/2021 7:22 AM CDT) athologist Signature Hepatitis A Positive 12/05/2021 [facility] IgG Ab, S 10:56 AM CDT Comment: Result indicates immunity to hepatitis A infection from either vaccination or past exposure to h epatitis A. False-positive results may be observed i n patients with CMV antibodies or heterophilic antibodies. ? ? ----REFERENCE VALUE---- Unvaccinated: Negative Vaccinated: Positive Specimen Anatomical Collection Method Collection Time Receive d Time (Source) Location / / Volume Laterality Blood (Blood, 12/05/2021 7:22 AM 12/06/19 Venous) CDT 10:11 AM CDT Willis Herrera M.D. LAB MICROBIOLOGY - BLOOD ORD ERAKAJAL Performing Organization Address City/[facility]/ZIP Code Phon e Number [place] [id number] [place] [address] [facility] [place] [address] Laboratory Medicine and Pathology [address] [place] [address] Dr. MURILLO (ABNORMAL) Troponin T, 5th Generation (12/05/2021 7:22 AM CDT) athologist Signature Troponin T, 5th 48 (H) <=15 ng/L 12/05/2021 DTL gen 8:48 AM CDT Specimen Anatomical Collection Method Collection Time Receive d Time (Source) Location / / Volume Laterality Blood (Blood, 12/05/2021 7:22 AM 12/06/19 8:12 Venous) CDT AM CDT Willis Herrera M.D. LAB BLOOD ADD-ON Performing Organization Address City/State/ZIP Code Phon e Number [facility] - [address] [place], [place] [address] [facility] [place] [place] [address] [facility] [address] documented in this encounter Visit Diagnoses Diagnosis Chronic Kidney Disease Stage 5 GFR Less Than 15 Dialysis Dependent (HCC) - Primary Pretransplant Recipient Evaluation Exam Encounter For Preprocedural Cardiovascul ar Examination Encounter For Preprocedural Cardiovascul ar Examination Chronic Kidney Disease Stage 5 GFR Less Than 15 Dialysis Dependent (HCC) Pretransplant Recipient Evaluation Exam documented in this encounter Additional Health Concerns Assessment Noted Time PHQ-9 Depression Total Score: 4 11/28/2020 10:17 AM CD T documented as of this encounter Care Teams Packing Checker Relationship Specialty Start Date End Date Elsewhere, Pcp PCP - General Family Medicine 07/29/17 [facility] - Laboratory Medicine 04/12/20 [place] [phone] documented as of this encounter
--- OUTSIDE RECORDS SUMMARY | 2022-04-13 12:04 | XMS_ITS | Encounter Summary ---
:1955 Author Organization [facility] Address [address] [place] [address] Care Team Providers Name Role Phone Elsewhere, Pcp Primary Care Provider Unavailable Encounter Details Date Type Department Care Team Description 09/27/2021 Clinical Communication Curt Loera, Center for Patricia Azevedo RDemetriusNDemetrius, Transplantation and C.C.T.C. Clinical Regeneration in [address] [place] [address] [place] [phone] [place] [address] [phone] Social History Tobacco Use Types Packs/Day Years [...] or relatives? How often do you attend [employer] or More than 4 times per year 12/15/2021 congregational services? 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 [address] [place] [phone] 04/25/2022 Office Visit Otorhinolaryngology Dex Matta, RAMONA, C.N.P., M.S.N. [address] [place] [phone] 05/08/2022 Appointment Laboratory Medicine Angélica Granger, P.A.-C. [address] [place] [phone] 05/08/2022 Clinical Admitting/Central Communication Scheduling 05/10/2022 Appointment Radiology Jeremie Rose M.D. [address] [place] [phone] 05/10/2022 Comprehensive Visit Orthopedic Surgery Warner Graves M.D. [address] [place] [phone] 05/22/2022 Appointment Laboratory Medicine Angélica Granger P.A.-C. [address] [place] [phone] 06/05/2022 Appointment Laboratory Angélica Royal P.A.-C. [address] [place] [phone] 06/19/2022 Appointment Laboratory Angélica Royal P.A.-C. [address] [place] [phone] 07/03/2022 Appointment Laboratory Angélica Royal P.A.-C. [address] [place] [phone] 07/17/2022 Appointment Laboratory Angélica Royal P.A.-C. [address] [place] [phone] 07/31/2022 Appointment Laboratory Angélica Royal P.A.-C. [address] [place] [phone] 08/14/2022 Appointment Laboratory Angélica Royal P.A.-C. [address] [place] [phone] 08/28/2022 Appointment Laboratory Angélica Royal P.A.-C. [address] [place] [phone] documented as of this encounter Visit Diagnoses Not on filedocumented in this encounter Additional Health Concerns Assessment Noted Time PHQ-9 Depression Total Score: 4 11/28/2020 10:17 AM CD T documented as of this encounter Care Teams Packaging Assembler Relationship Specialty Start Date End Date Elsewhere, Pcp PCP - General Family Medicine 07/29/17 [facility] - Laboratory Medicine 04/12/20 [place] [phone] documented as of this encounter
--- OUTSIDE RECORDS SUMMARY | 2022-04-13 12:05 | XMS_ITS | Encounter Summary ---
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 [address] [place] [phone] 04/25/2022 Office Visit Otorhinolaryngology Dex Matta APRN, C.N.P., M.S.N. [address] [place] [phone] 05/08/2022 Appointment Laboratory Medicine Angélica Granger P.A.-C. [address] [place] [phone] 05/08/2022 Clinical Admitting/Central Communication Scheduling 05/10/2022 Appointment Radiology Jeremie Rose M.D. [address] [place] [phone] 05/10/2022 Comprehensive Visit Orthopedic Surgery Warner Graves M.D. [address] [place] [phone] 05/22/2022 Appointment Laboratory Medicine Angélica Granger P.A.-C. [address] [place] [phone] 06/05/2022 Appointment Laboratory Medicine Angélica Granger P.A.-C. [address] [place] [phone] 06/19/2022 Appointment Laboratory Medicine Angélica Granger P.A.-C. [address] [place] [phone] 07/03/2022 Appointment Laboratory Medicine Angélica Granger P.A.-C. [address] [place] [phone] 07/17/2022 Appointment Laboratory Medicine Angélica Granger P.A.-C. [address] [place] [phone] 07/31/2022 Appointment Laboratory Medicine Angélica Granger P.A.-C. [address] [place] [phone] 08/14/2022 Appointment Laboratory Medicine Angélica Granger P.A.-C. [address] [place] [phone] 08/28/2022 Appointment Laboratory Medicine Angélica Granger P.A.-C. [address] [place] [phone] documented as of this encounter Procedures Procedure Name Priority Date/Time Associated Comments Diagnosis OTORHINOLARYNGOLOGY IMAGE Routine 08/28/2021 11:49 Results for this EXAM AM ACCOUNTING REPRESENTATIVE procedure are i n the results section. documented in this encounter Results NOSE-Otorhinolaryngology Image Exam (08/28/2021 11:49 AM ACCOUNTING REPRESENTATIVE) Specimen (Source) Anatomical Collection Method Collection Time Re ceived Time Location / / Volume Laterality 08/28/2021 12:21 PM ACCOUNTING REPRESENTATIVE Narrative IIMS - 08/28/2021 11:49 AM ACCOUNTING REPRESENTATIVE This order has been created and auto-finalized [...] documented as of this encounter Care Teams Gas Tender Relationship Specialty Start Date End Date Elsewhere, Pcp PCP - General Family Medicine 07/29/[address] [facility] - Laboratory Medicine 04/12/20 [place] [address] documented as of this encounter
--- OUTSIDE RECORDS SUMMARY | 2022-04-13 12:05 | XMS_ITS | Encounter Summary ---
:1955 Author Organization [facility] Address [address] [place] [address] Care Team Providers Name Role Phone Elsewhere, Pcp Primary Care Provider Unavailable Encounter Details Date Type Department Care Team Description 08/22/2021 Orders Only Division of Nephrology and Elissa Wilcox A PRN, Hypertension, Gnosticism C.N.P. 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 [address] [place] [phone] 04/25/2022 Office Visit Otorhinolaryngology Dex Matta APRN, C.N.P., M.S.N. [address] [place] [phone] 05/08/2022 Appointment Laboratory Medicine Angélica Granger P.A.-C. [address] [place] [phone] 05/08/2022 Clinical Admitting/Central Communication Scheduling 05/10/2022 Appointment Radiology Jeremie Rose M.D. [address] [place] [phone] 05/10/2022 Comprehensive Visit Orthopedic Surgery Warner Graves M.D. [address] [place] [phone] 05/22/2022 Appointment Laboratory Medicine Angélica Granger P.A.-C. [address] [place] [phone] 06/05/2022 Appointment Laboratory Medicine Angélica Granger P.A.-C. [address] [place] [phone] 06/19/2022 Appointment Laboratory Medicine Angélica Granger P.A.-C. [address] [place] [phone] 07/03/2022 Appointment Laboratory Medicine Angélica Granger P.A.-C. [address] [place] [phone] 07/17/2022 Appointment Laboratory Medicine Angélica Granger P.A.-C. [address] [place] [phone] 07/31/2022 Appointment Laboratory Medicine Angélica Granger P.A.-C. [address] [place] [phone] 08/14/2022 Appointment Laboratory Medicine Angélica Granger P.A.-C. [address] [place] [phone] 08/28/2022 Appointment Laboratory Medicine Angélica Granger P.A.-C. [address] [place] [phone] documented as of this encounter Visit Diagnoses Not on filedocumented in this encounter Additional Health Concerns Assessment Noted Time PHQ-9 Depression Total Score: 4 11/28/2020 10:17 AM CD T documented as of this encounter Care Teams Small Business Director Relationship Specialty Start Date End Date Elsewhere, Pcp PCP - General Family Medicine 07/29/17 [facility] - Laboratory Medicine 04/12/[address] [address] documented as of this encounter
--- OUTSIDE RECORDS SUMMARY | 2022-04-13 12:05 | XMS_ITS | Encounter Summary ---
:1955 Author Organization [facility] Address [address] [place] [address] Care Team Providers Name Role Phone Elsewhere, Pcp Primary Care Provider Unavailable Encounter Details Date Type Department Care Team Description 09/05/2021 Hospital Encounter Department of Trung Plasencia Liver (HCC); Laboratory Medicine Edmundo Stern, Medicati on Therapy Care Home Not Anticoagulant; in Jimmie Blake M.S. 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 vancomycin (VANCOCIN) Take 1 capsule (125 42 capsule 0 08/1609/06/2021 125 mg capsule mg total) by mouth 2 (two) times a day for 21 days. acetaminophen (TYLENOL) Take 1 tablet (500 0 /06/202110/12/2021 500 mg tablet mg total) by mouth [...] needed. Lactobacillus Take 1 capsule by 0 08/15/2021 04/2 08/2021 acidophilus capsule mouth 2 (two) times [...] MOUTH DAILY Transplant Liver (HCC), Medication Therapy Set Up Mechanic Stamping Machines Not Anticoagulant tacrolimus (PROGRAF) 0.5 TAKE 2 CAPSULES BY 360 capsule 3 10/16/2021 mg capsuleIndications: MOUTH TWICE DAILY Transplant Liver (HCC), Medication Therapy Set Up Mechanic Stamping Machines Not Anticoagulant torsemide (DEMADEX) 10 Take 6 [...] Laboratory Medicine Angélica Granger P.A.-C. [address] [place] [phone] 04/25/2022 Office Visit Otorhinolaryngology Dex Matta APRN, C.N.P., M.S.N. [address] [place] [phone] 05/08/2022 Appointment Laboratory Medicine Angélica Granger P.A.-C. [address] [place] [phone] 05/08/2022 Clinical Admitting/Central Communication Scheduling 05/10/2022 Appointment Radiology Jeremie Rose M.D. [address] [place] [phone] 05/10/2022 Comprehensive Visit Orthopedic Surgery Warner Graves M.D. [address] [place] [phone] 05/22/2022 Appointment Laboratory Medicine Angélica Granger P.A.-C. [address] [place] [phone] 06/05/2022 Appointment Laboratory Medicine Angélica Granger P.A.-C. [address] [place] [phone] 06/19/2022 Appointment Laboratory Medicine Angélica Granger P.A.-C. [address] [place] [phone] 07/03/2022 Appointment Laboratory Medicine Angélica Granger P.A.-C. [address] [place] [phone] 07/17/2022 Appointment Laboratory Medicine Angélica Granger P.A.-C. [address] [place] [phone] 07/31/2022 Appointment Laboratory Medicine Angélica Granger P.A.-C. [address] [place] [phone] 08/14/2022 Appointment Laboratory Medicine Angélica Granger P.A.-C. [address] [place] [phone] 08/28/2022 Appointment Laboratory Medicine Angélica Gragner P.A.-C. [address] [place] [phone] documented as of this encounter Procedures Procedure Name Priority Date/Time Associated Diagnosis Comme nts TACROLIMUS LEVEL, B Routine 09/05/2021 8:24 Transplant L iver (FORMERLY [facility]) Results for this AM CDT Medication Therapy procedure are in Set Up Mechanic Stamping Machines Not the results Anticoagulant section. Colitis Cytomegalovirus (HCC) CBC WITHOUT Routine 09/05/2021 8:24 Transplant Liver (FORMER[facility]) Results for this DIFFERENTIAL, B AM CDT Medication Therapy proced ure are in Care Home Not the results Anticoagulant section. Colitis Cytomegalovirus (HCC) GLUCOSE, FASTING, S/P Routine 09/05/2021 8:24 Transplant Liver ([facility]) Results for this AM CDT Medication Therapy procedure are in Set Up Mechan[employer] Stamping Machines Not the results Anticoagulant section. Colitis Cytomegalovirus (HCC) COMPREHENSIVE Routine 09/05/2021 8:24 Transplant Liver (FORM[facility]) Results for this METABOLIC PANEL, S/P AM CDT Medication Therapy p rocedure are in Care Home Not the results Anticoagulant section. Colitis Cytomegalovirus (HCC) CMV DNA DETECT/QUANT, Routine 09/05/2021 8:23 Transplant Liver (HCC) Results for this P AM CDT Medication Therapy procedure are in Set Up Mechanic Stamping Machines Not the results Anticoagulant section. Colitis Cytomegalovirus (HCC) documented in this encounter Results (ABNORMAL) Tacrolimus, B (09/05/2021 8:24 AM CDT) athologist Signature Tacrolimus, B 1.4 (L) 5.0-15.0 09/06/2021 SDSC (Trough) 10:32 AM CDT ng/mL Comment: ----ADDITIONAL INFORMATION---- Target steady-state trough concentration s vary depending on the type of transplant, concomitant immunosuppressio n, clinical/institutional protocols, and time post-transplant. Results should be interpreted in conjunction with this clinical information and any physic al signs/symptoms of rejection/toxicity. Testing performed by Liquid Chromatograp hy-Tandem Mass Spectrometry (LC-MS/MS). This test was developed and its performa nce characteristics determined by [facility] in a manner consistent with CLIA requirements. This test has not been cleared or approved by the U.S. Mer d and Drug Administration. Specimen Anatomical Collection Method Collection Time Receive d Time (Source) Location / / Volume Laterality Blood (Blood, 09/05/2021 8:24 AM 09/07/19 22 7:23 Venous) CDT AM CDT Trung Plasencia P.A.-C., M.S. LAB BLOOD NON ADD-ON Performing Organization Address City/State/ZIP Code Phon e Number [facility] [address] [place] [address] [place] [address] Laboratory Medicine and Pathology [address] [place] (ABNORMAL) Glucose, Fasting (09/05/2021 8:24 AM CDT) athologist Signature Glucose, P 112 (H) 70 - 100 09/05/2021 [facility] mg/dL 8:49 AM CDT Last Intake 15 hr 09/05/2021 [facility] 8:24 AM CDT Specimen Anatomical Collection Method Collection Time Receive d Time (Source) Location / / Volume Laterality Blood (Blood, 09/05/2021 8:24 AM 09/06/19 22 8:24 Venous) CDT AM CDT Trung Plasencia P.A.-C., M.S. LAB BLOOD NON ADD-ON Performing Organization Address City/State/ZIP Code Phon e Number [facility]- [address] [place] [id number] [place] [address] [address] (ABNORMAL) Comprehensive Metabolic Panel (09/05/2021 8:24 AM CDT) Analysis Performed At Patho logist Time Signature Potassium, P 3.9 3.6 - 5.2 09/05/2021 [facility] mmol/L 8:52 AM CDT Sodium, P 135 135 - 145 09/05/2021 [facility] mmol/L 8:52 AM CDT Chloride, P 99 98 - 107 09/05/2021 [facility] mmol/L 8:52 AM CDT Bicarbonate, P 21 (L) 22 - 29 09/05/2021 [facility] mmol/L 8:52 AM CDT Anion Gap, P 15 7 - 15 09/05/2021 [facility] 8:52 AM CDT BUN (Blood Urea 52 (H) 8 - 24 09/05/2021 [facility] Nitrogen), P mg/dL 8:52 AM CDT Creatinine 3.53 (H) 0.74 - 09/05/2021 [facility] 1.35 mg/dL 8:52 AM CDT eGFR-Black/Afri 20 (L) >=60 09/05/2021 [facility] can [place] mL/min/BSA 8:52 AM CDT Comment: ----ADDITIONAL INFORMATION---- Estimated GFR calculated using the 2009 CKD_EPI creatinine equation. eGFR Non-Black/ 17 (L) >=60 mL/min/BSA 09/05/2021 8:52 AM CDT [facility] [place] Comment: ----ADDITIONAL INFORMATION---- Estimated GFR calculated using the 2009 CKD_EPI creatinine equation. Calcium, Total, P 9.2 8.8 - 10.2 mg/dL 09/05/2021 8:52 AM CDT CN[facility] Glucose, P CANCELED mg/dL 09/05/2021 8:24 AM CDT CNFL Comment: Duplicate test request. Result canceled by the ancillary. Protein, Total, P 6.4 6.3 - 7.9 g/dL 09/05/2021 8:52 A M CDT [facility] Albumin, P 4.0 3.5 - 5.0 g/dL 09/05/2021 8:52 AM CDT C NFL Aspartate Aminotransferase (AST), 20 8 - 48 U/L 09/05 8:52 AM CDT [facility] P Alkaline Phosphatase, P 110 40 - 129 U/L 09/05/2021 8: 52 AM CDT CN[facility] Alanine Aminotransferase (ALT), P 23 7 - 55 U/L 09/05 8:52 AM CDT CN[facility] Bilirubin, Total, P 0.4 <=1.2 mg/dL 09/05/2021 8:52 AM CDT CN[facility] Specimen Anatomical Collection Method Collection Time Receive d Time (Source) Location / / Volume Laterality Blood (Blood, 09/05/2021 8:24 AM 09/06/19 8:24 Venous) CDT AM CDT Trung Plasencia P.A.-C., M.S. LAB BLOOD ADD-ON Performing Organization Address City/State/[facility] Code Phon e Number [facility]- [address] [place] [phone] [place] [address] [place] [address] System [address] (ABNORMAL) CBC without Differential (09/05/2021 8:24 AM CDT) [facility] gist Method Time Signature Hemoglobin 10.6 (L) 13.2 - 09/05/2021 [facility] 16.6 g/dL 8:44 AM CDT Hematocrit 32.6 (L) 38.3 - 09/05/2021 [facility] 48.6 % 8:44 AM CDT Erythrocytes 3.34 (L) 4.35 - 09/05/2021 CN[facility] 5.65 8:44 AM CDT x10(12)/L MCV 97.6 78.2 - 09/05/2021 CN[facility] 97.9 fL 8:44 AM CDT RBC Distrib Width 13.5 11.8 - 09/05/2021 [facility] 14.5 % 8:44 AM CDT Platelet Count 279 135 - 317 09/05/2021 [facility] x10(9)/L 8:44 AM CDT Leukocytes 8.1 3.4 - 9.6 09/05/2021 [facility] x10(9)/L 8:44 AM CDT Specimen Anatomical Collection Method Collection Time Receive d Time (Source) Location / / Volume Laterality Blood (Blood, 09/05/2021 8:24 AM 09/06/19 22 8:24 Venous) CDT AM CDT Trung Plasencia P.A.-C., MDemetriusSDemetrius LAB BLOOD ADD-ON Performing Organization Address [facility] Phon e Number [address] [address] [place] [address] System [address] CMV DNA Detect / Quant, Plasma (09/05/2021 8:23 AM CDT) [facility] Method Time Signature CMV DNA Undetected Undetected 09/06/2021 [facility] Detect/Quant, IU/mL 5:49 PM CDT P Comment: Result in log IU/mL is Undetected. ----ADDITIONAL INFORMATION---- The quantification range of this assay i s 35 to 10,000,000 IU/mL (1.54 log to 7.00 log IU/mL). Testing was performed u sing the tika CMV test ([employer] with the tika 6800 System. Specimen Anatomical Collection Method Collection Time Receive d Time (Source) Location / / Volume Laterality Blood (Blood, 09/05/2021 8:23 AM 09/07/19 7:08 Venous) CDT AM CDT Trung Plasencia P.A.-C., M.S. LAB MICROBIOLOGY - BLOOD O RDERABLES Performing Organization Address City/[facility]/ZIP Code Phon e Number [facility] [address] [place], [place] [address] SUPPORT CENTER [facility] [place] [address] Laboratory Medicine and Pathology [address] [place] documented in this encounter Visit Diagnoses Diagnosis Transplant Liver (HCC) Medication Therapy Care Home Not Anticoa gulant Colitis Cytomegalovirus (HCC) documented in this encounter Additional Health Concerns Assessment Noted Time PHQ-9 Depression Total Score: 4 11/28/2020 10:17 AM CD T documented as of this encounter Care Teams Workers' Compensation Mediator Relationship Specialty Start Date End Date Elsewhere, Pcp PCP - General Family Medicine 07/29/17 [facility] - Laboratory Medicine 04/12/20 [place] [address] documented as of this encounter
--- OUTSIDE RECORDS SUMMARY | 2022-04-13 12:05 | XMS_ITS | Encounter Summary ---
:1955 Author Organization [facility] Address [address] [place] [address] Care Team Providers Name Role Phone Elsewhere, Pcp Primary Care Provider Unavailable Reason for Visit Reason Comments Phone Contact Encounter Details Date Type Department Care Team Description 08/24/2021 Clinical Communication Curt Loera, Phone Contact Center for Juanjo Becerril and RSteve, C.C.T. C. 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 They will fax the [phone] over this afternoon. Y OPERATOR Telephone Encounter - Patricia Pinto R.N., C.C.T.C. - 08/29/2021 11:22 AM CST Bruce Singh [phone] Requestin form ??? Specifically looking for: dialysis start date Outside Facility: ??? Name: [facility] [place] ??? Address: ? Fax: Y OPERATOR Telephone Encounter - Patricia Pinto R.N., C.C.T.C. - 08/29/2021 11:19 AM CST Information Discussed I let patient know that I have mailed to him his most recent [facility] status letter. I explained that heis active on the waiting list and that his waiting time goes back to 04/07/2018. Bruce states that he started dialysis about 3 months ago and is dialyzing at [facility] in [place]. PLAN Disposition/Recommendation: See Above Information/Education: patient/caller able to teach back Caller agreeable to plan of care: yes The following references were used: nursing clinical judgement Y OPERATOR Telephone Encounter - Yolie Cross - 08/24/2021 8:43 AM CST Patient is calling and would like a current letter for his current waitlist status to be sent to himin the mail. Also was wondering if there is a way to check where he is currently on the waitlist as far as placement for how much longer. I did let him know the national average for our region. Please send out a letter with his current waitlist status along with placement. Thank you Yolie Cross Y OPERATOR documented in this encounter Plan of Treatment Upcoming Encounters Date Type Specialty Care Team Description 04/24/2022 Appointment Laboratory Medicine Angélica Granger P.A.-CDemetrius [address] [place] [phone] 04/25/2022 Office Visit Otorhinolaryngology Dex Matta, RAMONA, C.N.P., M.S.N. [address] [place] [phone] 05/08/2022 Appointment Laboratory Medicine Angélica Granger P.A.-CDemetrius [address] [place] [phone] 05/08/2022 Clinical Admitting/Central Communication Scheduling 05/10/2022 Appointment Radiology Jeremie Rose M.D. [address] [place] [phone] 05/10/2022 Comprehensive Visit Orthopedic Surgery Warner Graves M.D. [address] [place] [phone] 05/22/2022 Appointment Laboratory Medicine Angélica Granger P.A.-C. [address] [place] [phone] 06/05/2022 Appointment Laboratory Medicine Angélica Granger P.A.-C. [address] [place] [phone] 06/19/2022 Appointment Laboratory Medicine Angélica Granger P.A.-C. [address] [place] [phone] 07/03/2022 Appointment Laboratory Medicine Angélica Granger P.A.-C. [address] [place] [phone] 07/17/2022 Appointment Laboratory Medicine Angélica Granger P.A.-C. [address] [place] [phone] 07/31/2022 Appointment Laboratory Medicine Angélica Granger P.A.-C. [address] [place] [phone] 08/14/2022 Appointment Laboratory Medicine Angélica Granger P.A.-C. [address] [place] [phone] 08/28/2022 Appointment Laboratory Medicine Angélica Granger P.A.-C. [address] [place] [phone] documented as of this encounter Visit Diagnoses Not on filedocumented in this encounter Additional Health Concerns Assessment Noted Time PHQ-9 Depression Total Score: 4 11/28/2020 10:17 AM CD T documented as of this encounter Care Teams Wide Area Network Administrator Relationship Specialty Start Date End Date Elsewhere, Pcp PCP - General Family Medicine 07/29/17 [facility] - Laboratory Medicine 04/12/[address] [address] documented as of this encounter
--- OUTSIDE RECORDS SUMMARY | 2022-04-13 12:05 | XMS_ITS | Encounter Summary ---
:1955 Author Organization [facility] Address [address] [place] [address] Care Team Providers Name Role Phone Elsewhere, Pcp Primary Care Provider Unavailable Encounter Details Date Type Department Care Team Description 08/27/2021 Orders Only Division of Nephrology and Chris Norwood Hypertension in [place], ., D.O. 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 [address] [place] [phone] 04/25/2022 Office Visit Otorhinolaryngology Dex Matta APRN, C.N.P., M.S.N. [address] [place] [phone] 05/08/2022 Appointment Laboratory Medicine Angélica Granger P.A.-CDemetrius [address] [place] [phone] 05/08/2022 Clinical Admitting/Central Communication Scheduling 05/10/2022 Appointment Radiology Jeremie Rose M.D. [address] [place] [phone] 05/10/2022 Comprehensive Visit Orthopedic Surgery Warner Graves M.D. [address] [place] [phone] 05/22/2022 Appointment Laboratory Medicine Angélica Granger P.A.-C. [address] [place] [phone] 06/05/2022 Appointment Laboratory Medicine Angélica Granger P.A.-C. [address] [place] [phone] 06/19/2022 Appointment Laboratory Medicine Angélica Granger P.A.-C. [address] [place] [phone] 07/03/2022 Appointment Laboratory Medicine Angélica Granger P.A.-C. [address] [place] [phone] 07/17/2022 Appointment Laboratory Medicine Angélica Granger P.A.-C. [address] [place] [phone] 07/31/2022 Appointment Laboratory Medicine Angélica Granger P.A.-C. [address] [place] [phone] 08/14/2022 Appointment Laboratory Medicine Angélica Granger P.A.-C. [address] [place] [phone] 08/28/2022 Appointment Laboratory Medicine Angélica Granger P.A.-C. [address] [place] [phone] documented as of this encounter Visit Diagnoses Not on filedocumented in this encounter Additional Health Concerns Assessment Noted Time PHQ-9 Depression Total Score: 4 11/28/2020 10:17 AM CD T documented as of this encounter Care Teams Manager Monitoring Relationship Specialty Start Date End Date Elsewhere, Pcp PCP - General Family Medicine 07/29/17 [facility] - Laboratory Medicine 04/12/[address] [phone] documented as of this encounter
--- OUTSIDE RECORDS SUMMARY | 2022-04-13 12:05 | XMS_ITS | Encounter Summary ---
:1955 Author Organization [facility] Address [address] [place] [address] Care Team Providers Name Role Phone Elsewhere, Pcp Primary Care Provider Unavailable Encounter Details Date Type Department Care Team Description 09/07/2021 Hospital Encounter Department of Willis Herrera Chro nic Kidney Disease; Laboratory Medicine M.DDemetrius Pretransplant Recipient Evaluation Exam and Pathology, [address] [place] [address] in [facility] [address] [place] [phone] [place] [address] (Work) [place], [place] [phone] (Fax) [phone] Social History Tobacco Use Types Packs/Day Years [...] at Date Recorded 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 [address] [place] [phone] 04/25/2022 Office Visit Otorhinolaryngology Dex Matta APRN CDemetriusNDemetriusPDemetrius, M.S.N. [address] [place] [phone] 05/08/2022 Appointment Laboratory Medicine Angélica Granger P.A.-C. [address] [place] [phone] 05/08/2022 Clinical Admitting/Central Communication Scheduling 05/10/2022 Appointment Radiology Jeremie Rose M.D. [address] [place] [phone] 05/10/2022 Comprehensive Visit Orthopedic Surgery Warner Graves M.D. [address] [place] [phone] 05/22/2022 Appointment Laboratory Medicine Angélica Granger P.A.-C. [address] [place] [phone] 06/05/2022 Appointment Laboratory Medicine Angélica Granger P.A.-C. [address] [place] [phone] 06/19/2022 Appointment Laboratory Medicine Angélica Granger P.A.-C. [address] [place] [phone] 07/03/2022 Appointment Laboratory Medicine Angélica Granger P.A.-C. [address] [place] [phone] 07/17/2022 Appointment Laboratory Medicine Angélica Granger P.A.-C. [address] [place] [phone] 07/31/2022 Appointment Laboratory Medicine Angélica Granger P.A.-C. [address] [place] [phone] 08/14/2022 Appointment Laboratory Medicine Angélica Granger P.A.-C. [address] [place] [phone] 08/28/2022 Appointment Laboratory Medicine Angélica Granger P.A.-C. [address] [place] [phone] documented as of this encounter Procedures Procedure Name Priority Date/Time Associated Diagnosis Comme nts HLA CLASS II SAB Routine 09/21/2021 2:00 PM Chronic Kidney Res ults for this ANTIBODY SCREEN CDT Disease procedure are in Pretransplant the results Recipient Evaluation section . Exam HLA CLASS I SAB Routine 09/21/2021 2:00 PM Chronic Kidney Resu lts for this ANTIBODY SCREEN CDT Disease procedure are in Pretransplant the results Recipient Evaluation section . Exam documented in this encounter Results HLA Class II SAB Antibody Screen (09/21/2021 2:00 PM CDT) [facility] Time Signature Class II SAB Negative Not Applicable 09/26/2021 DBB8 Overall 10:09 PM CDT Result Class II SAB 0 09/26/2021 DBB8 cPRA 10:09 PM CDT Comment: ----ADDITIONAL INFORMATION---- cPRA is calculated for either HLA class I or II (except DPB1) antibodies with a normalized MFI >2000 u sing published UNOS frequencies (http://optn.transplant.hrsa .gov). ??For convenience, all HLA antibodies with a normalized MFI >500 are listed in the specificity licea. SAB DRB1 Specificity NONE 09/26/2021 10:09 PM CDT DBB8 SAB [id number] Specificity NONE 09/26/2021 10:09 PM CDT DBB8 SAB DQB1 Specificity NONE 09/26/2021 10:09 PM CDT DBB8 SAB DPB1 Specificity NONE 09/26/2021 10:09 PM CDT DBB8 Comment: ----ADDITIONAL INFORMATION---- Method: Luminex Flow Cytometry CLIA: [id number] ??CLIA Wincher: KRISTAL MIMS MD,PhD Specimen Anatomical Collection Method Collection Time Receive d Time (Source) Location / / Volume Laterality Blood (Blood, 09/21/2021 2:00 PM 09/26/19 22 2:41 Venous) CDT PM CDT Resulting Agency Comment Mailed In Specimen Willis Herrera M.D. LAB HLA ORDERABLES Performing Organization Address City/State/[facility] Code Phon e Number [facility] - [address] [place] [address] [address] [facility] DBB8 [place] [address] [facility] [address] [facility] HLA Class I SAB Antibody Screen (09/21/2021 2:00 PM CDT) [facility] Method Time Signature Class I SAB Negative Not Applicable 09/26/2021 DBB8 Overall 10:03 PM CDT Result Class I SAB 0 09/26/2021 DBB8 cPRA 10:03 PM CDT Comment: ----ADDITIONAL INFORMATION---- cPRA is calculated for either HLA class I or II (except DPB1) antibodies with a normalized MFI >2000 u sing published UNOS frequencies (http://optn.transplant.hrsa .gov). ??For convenience, all HLA antibodies with a normalized MFI >500 are listed in the specificity licea. SAB A Specificity NONE 09/26/2021 10:03 PM CD T DBB8 SAB B Specificity NONE 09/26/2021 10:03 PM CD T DBB8 SAB C Specificity NONE 09/26/2021 10:03 PM CD T DBB8 Comment: ----ADDITIONAL INFORMATION---- Method: Luminex Flow Cytometry CLIA: [id number] ??CLIA Wincher: KRISTAL MIMS MD,PhD Specimen Anatomical Collection Method Collection Time Receive d Time (Source) Location / / Volume Laterality Blood (Blood, 09/21/2021 2:00 PM 09/26/19 22 2:41 Venous) CDT PM CDT Resulting Agency Comment Mailed In Specimen Willis Herrera M.D. LAB HLA ORDERABLES Performing Organization Address City/State/[facility] Code Phon e Number [facility] - [address] [place], [place] [address] [facility] DBB[address] [place] [address] [facility] [address] documented in this encounter Visit Diagnoses Diagnosis Chronic Kidney Disease Pretransplant Recipient Evaluation Exam documented in this encounter Additional Health Concerns Assessment Noted Time PHQ-9 Depression Total Score: 4 11/28/2020 10:17 AM CD T documented as of this encounter Care Teams All Around Presser Relationship Specialty Start Date End Date Elsewhere, Pcp PCP - General Family Medicine 07/29/17 [facility] - Laboratory Medicine 04/12/20 [place] [phone] documented as of this encounter
--- OUTSIDE RECORDS SUMMARY | 2022-04-13 12:05 | XMS_ITS | Encounter Summary ---
:1955 Author Organization [facility] Address [address] [place] [address] Care Team Providers Name Role Phone Elsewhere, Pcp Primary Care Provider Unavailable Reason for Referral Outpatient (Routine) - Closed Specialty Diagnoses / Procedures Referred By Contact Refer red To Contact Otorhinolaryngology Toro Pena M.D . 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 [address] [phone] Referral ID Status Reason Start Date Expiration Date Visits Requ ested Visits Authorized [id number] Closed 07/03/2021 07/03/2022 1 1 Encounter Details Date Type Department Care Team Description 08/28/2021 Office Visit Department of Toro Pena Rhinosinusiti s Otorhinolaryngology samm Galvan M.D. 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 - 08/28/2021 10:45 AM CST History of Present Illness: is a 65 y.o. male with a history of chronic rhinosinusitis. He presents today for his second postoperative visit s/p ESS and bilateral inferior turbinate reductions on 07/26/2021. Following surgery he was initially started on doxycycline 07/26/21 and switched to bactrim (07/30/21) due to culture results following surgery. He messaged in on 08/14 with increase in headaches and nasal drainage. Dr. Starr reached out and discussed with Infections Disease (Dr. Plasencia) the next best steps. He was initiated on a 2 week course of Augmentin and Bactrim along with 3 weeks of Vancomycin to prevent Cdiff. Today he reports he has had much improvement in his symptoms. He continues to have a cough with phlegm production but it is clear and slimy as opposed to green. He reports his fatigued has improved as well. He did reach out to his fire prevention inspector and they initiated a 6 week course of prednisone burst andtaper. He has continued with his twice daily budesonide rinses and daily use of Atrovent and Astelin. PRE-OPERATIVE DIAGNOSIS 1. Chronic rhinosinusitis. 2. Nasal airway obstruction. 3. Bilateral inferior turbinate hypertrophy. 4. History of liver transplant on immunosuppression 5. End-stage chronic kidney disease on dialysis therapy ?? POST-OPERATIVE DIAGNOSIS 6. Chronic rhinosinusitis. 7. Nasal airway obstruction. 8. Bilateral inferior turbinate hypertrophy. 9. History of liver transplant on immunosuppression 10. End-stage chronic kidney disease on dialysis therapy ? PROCEDURE(S) 1. Bilateral submucosal inferior turbinate reduction. 2. Bilateral maxillary antrostomy with tissue removal. 3. Bilateral total ethmoidectomy. 4. Bilateral sphenoidotomy with tissue removal. 5. Bilateral frontal sinusotomy. 6. Extradural computer-assisted navigation Of note, patient underwent creation of a brachiocephalic fistula on 07/24/21 ROS: Patient has no active stridor. Other pertinent ROS are positive as per the HPI PHYSICAL EXAM: General: Patient doing well overall and is in no apparent distress. Psych: Pleasant affect, and answers questions appropriately. Eyes: Pupils equal, round, reactive. Extraoccular movements intact without gaze restrictions or nystagmus. No epiphora. Extremities: Without gross evidence of clubbing, cyanosis, or edema. Neuro: Cranial nerves II-XII grossly intact; Intact facial movements. PROCEDURE NOTE Procedure: BILATERAL POSTOP DEBRIDEMENT Indication: status post endoscopic sinus surgery Informed Consent obtained: The risks, benefits, alternatives, and expectations were discussed with patient verbally and the patient wishes to proceed. Findings: After anesthesia and decongestion with topical lidocaine and phenylephrine spray, the nasal cavities were examined and debrided with a 30 degree endoscope. The middle turbinates were in good position. Crusts and clear drainage were removed from the middle meatus bilaterally. Yellow, thick drainage was noted in right sphenoethmoid recess. This was cultured and removed. Large crust removed from the sphenoethmoid recess bilaterally. The maxillary, sphenoid, ethmoid and frontal sinuses were patent bilaterally. Mild edema in bilateral ethmoid and frontal sinuses. Granulation tissues was removed with a cups forceps from the bilateral frontal sinuses. The sinuses are healing appropriately. Remaining propel stent in left frontal sinus removed. The patient tolerated the procedure well and there were no complications. [facility] Endoscopic Scoring System RIGHT LEFT POLYPS (0, 1, 2) 0 0 EDEMA (0, 1, 2) 1 1 DISCHARGE (0, 1, 2) 1 1 SCARRING (0, 1, 2) 0 0 CRUSTING (0, 1, 2) 1 1 TOTAL 3 3 Olfactory Cleft Score RIGHT LEFT POLYPS (0, 1, 2) 0 0 EDEMA (0, 1, 2) 1 1 DISCHARGE (0, 1, 2) 0 0 SCARRING (0, 1, 2) 0 0 CRUSTING (0, 1, 2) 0 0 TOTAL 1 1 Assessment: #1 Chronic Rhinosinusitis #2 Cough #3 [...] to plan. Dex Matta APRN, C.N.P., M.S.N. Toro Pena MD [facility] Department of Otorhinolaryngology - Head & Neck Surgery SEALING FUEL TANK REPAIRER Associated attestation - Toro Pena M.D. - 08/28/2021 12:33 PM SELF SEALING FUEL TANK REPAIRER I saw and evaluated the patient, participating in the garcia portions of the service. I reviewed the resident/PA/nurse practitioner's note. I agree with the examination, assessment and plan. Toro Pena MD [facility] Department of Otorhinolaryngology - Head & Neck Surgery documented in this encounter Plan of Treatment Upcoming Encounters Date Type Specialty Care Team Description 04/24/2022 Appointment Laboratory Medicine Angélica Granger P.A.-C. [address] [place] [phone] 04/25/2022 Office Visit Otorhinolaryngology Dex Matta APRN, C.N.P., M.S.N. [address] [place] [phone] 05/08/2022 Appointment Laboratory Medicine Angélica Granger P.A.-C. [address] [place] [phone] 05/08/2022 Clinical Admitting/Central Communication Scheduling 05/10/2022 Appointment Radiology Jeremie Rose M.D. [address] [place] [phone] 05/10/2022 Comprehensive Visit Orthopedic Surgery Warner Graves M.D. [address] [place] [phone] 05/22/2022 Appointment Laboratory Medicine Angélica Granger P.A.-C. [address] [place] [phone] 06/05/2022 Appointment Laboratory Medicine Angélica Granger P.A.-C. [address] [place] [phone] 06/19/2022 Appointment Laboratory Medicine Angélica Granger P.A.-C. [address] [place] [phone] 07/03/2022 Appointment Laboratory Medicine Angélica Granger P.A.-C. [address] [place] [phone] 07/17/2022 Appointment Laboratory Medicine Angélica Granger P.A.-C. [address] [place] [phone] 07/31/2022 Appointment Laboratory Medicine Angélica Granger P.A.-C. [address] [place] [phone] 08/14/2022 Appointment Laboratory Angélica Royal P.A.-C. [address] [place] [phone] 08/28/2022 Appointment Laboratory Medicine Angélica Granger P.A.-C. [address] [place] [phone] Scheduled Referrals Name Type Priority Associated Order Schedule Diagnoses Otorhinolaryngology office Outpatient Routine E xpected: visit (clinic) Referral 02/28/2022 (Approximate), Expires: 11/28/2022 documented as of this encounter Procedures Procedure Name Priority Date/Time Associated Diagnosis Comme nts BACTERIAL CULTURE, Routine 08/28/2021 11:51 Rhinosinusitis Chr onic Results for this AEROBIC + SUSC AM SELF SEALING FUEL TANK REPAIRER procedure are in the results section. documented in this encounter Results (ABNORMAL) Bacterial Culture, Aerobic + Susc (08/28/2021 11:51 AM SELF SEALING FUEL TANK REPAIRER) [facility] gist Method Time Signature Bacterial With usual 08/31/2021 DTL Culture, efrem (A) 2:45 PM SELF SEALING FUEL TANK REPAIRER Aerobic + Susc Bacterial SERRATIA MARCESCENS 08/31/2021 DTL Culture, 3+ 2:45 PM SELF SEALING FUEL TANK REPAIRER Aerobic + (A) Susc Comment: This organism may contain an inducible b eta-lactamase. Second- or third-generation cephalospori n monotherapy may result in the emergence of high-level resistance. Preferred empiric therapy, p ending antimicrobial susceptibility results, is cefepime, a f luoroquinolone, or a carbapenem, unless clinically contr aindicated. Specimen Anatomical Collection Method Collection Time Receive d Time (Source) Location / / Volume Laterality Swab (Paranasal 08/28/2021 11:51 08/29/19 22 1:47 Sinus, Frontal AM SELF SEALING FUEL TANK REPAIRER PM SELF SEALING FUEL TANK REPAIRER Right) Comment: Specimen Source Site: Swab Organism Antibiotic Method Susceptibility Serratia marcescens Ampicillin SUSCEPTIBILITY, >16 mcg/mL: Resistant DAVID (MCG/ML) Serratia marcescens Ampicillin + Sulbactam SUSCEPTIBILITY, >16/8 mcg/mL: Resistant DAVID (MCG/ML) Serratia marcescens Meropenem SUSCEPTIBILITY, <=0.12 mcg/m L: DAVID (MCG/ML) Susceptible Serratia marcescens Ertapenem SUSCEPTIBILITY, 0.5 mcg/mL: Susceptible DAVID (MCG/ML) Serratia marcescens Piperacillin + Tazobactam SUSCEPTIBILITY, <= 16/4 mcg/mL: DAVID (MCG/ML) Susceptible Serratia marcescens Ciprofloxacin SUSCEPTIBILITY, 2 mcg/mL: Re sistant DAVID (MCG/ML) Serratia marcescens Levofloxacin SUSCEPTIBILITY, 2 mcg/mL: Re sistant DAVID (MCG/ML) Serratia marcescens Cefazolin SUSCEPTIBILITY, >16 mcg/mL: Resistant DAVID (MCG/ML) Serratia marcescens Ceftriaxone SUSCEPTIBILITY, 2 mcg/mL: In termediate DAVID (MCG/ML) Serratia marcescens Ceftazidime SUSCEPTIBILITY, <=4 [...] SUSCEPTIBILITY, 2/38 mcg/mL: Sulfamethoxazole DAVID (MCG/ML) Susceptible Toro Pena M.D. LAB MICROBIOLOGY - GENERAL O GLADYS Performing Organization Address City/State/[facility] Code Phon e Number [facility] - [address] [place], [place] [address] [place] [address] [address] documented in this encounter Visit Diagnoses Diagnosis Rhinosinusitis Chronic - Primary documented in this encounter Additional Health Concerns Assessment Noted Time PHQ-9 Depression Total Score: 4 11/28/2020 10:17 AM CD T documented as of this encounter Care Teams Webbing Seamer Pound Net Relationship Specialty Start Date End Date Elsewhere, Pcp PCP - General Family Medicine 07/29/17 [facility] - Laboratory Medicine 04/12/[address] [phone] documented as of this encounter
--- OUTSIDE RECORDS SUMMARY | 2022-04-13 12:05 | XMS_ITS | Encounter Summary ---
:1955 Author Organization [facility] Address [address] [place] [address] Care Team Providers Name Role Phone Elsewhere, Pcp Primary Care Provider Unavailable Reason for Visit Reason Comments Txp Tacrolimus Adjustment Protocol - Liver Encounter Details Date Type Department Care Team Description 08/30/2021 Clinical Curt Moss, Jose[facility] Communication Center for Yolie R, Adjustment Transplantation and R.N. Protocol - Liver Clinical Regeneration [address] [facility] [address] [facility] [phone] [phone] Social History Tobacco Use Types Packs/Day Years [...] many times do you More than three angélcia es a week 12/15/2021 talk on the phone with family, friends, or neighbors? How often do you get together with friends Twice a week 12/15/2021 or relatives? How often do you attend amish or More than 4 times per year 12/15/2021 yazdanism services? 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 - 08/30/2021 4:27 PM CST Tacrolimus level within goal range of 2-4, per Tacrolimus Adjustment Protocol no dose change recommended. Other lab results received and reviewed, stable trends, continue monitoring monthly. UCTION MAINTENANCE MECHANIC documented in this encounter Plan of Treatment Upcoming Encounters Date Type Specialty Care Team Description 04/24/2022 Appointment Laboratory Medicine Angélica Granger P.A.-C. [address] [place] [phone] 04/25/2022 Office Visit Otorhinolaryngology Dex Matta APRN, C.N.P., M.S.N. [address] [place] [phone] 05/08/2022 Appointment Laboratory Medicine Angélica Granger P.A.-CDemetrius [address] [place] [phone] 05/08/2022 Clinical Admitting/Central Communication Scheduling 05/10/2022 Appointment Radiology Jeremie Rose M.D. [address] [place] [phone] 05/10/2022 Comprehensive Visit Orthopedic Surgery Warner Graves M.D. [address] [place] [phone] 05/22/2022 Appointment Laboratory Medicine Angélica Granger P.A.-C. [address] [place] [phone] 06/05/2022 Appointment Laboratory Medicine Angélica Granger P.A.-C. [address] [place] [phone] 06/19/2022 Appointment Laboratory Medicine Angélica Granger P.A.-C. [address] [place] [phone] 07/03/2022 Appointment Laboratory Medicine Angélica Granger P.A.-C. [address] [place] [phone] 07/17/2022 Appointment Laboratory Medicine Angélica Granger P.A.-C. [address] [place] [phone] 07/31/2022 Appointment Laboratory Medicine Angélica Granger P.A.-C. [address] [place] [phone] 08/14/2022 Appointment Laboratory Medicine Angélica Granger P.A.-C. [address] [place] [phone] 08/28/2022 Appointment Laboratory Medicine Angélica Granger P.A.-C. [address] [place] [address] documented as of this encounter Visit Diagnoses Not on filedocumented in this encounter Additional Health Concerns Assessment Noted Time PHQ-9 Depression Total Score: 4 11/28/2020 10:17 AM CD T documented as of this encounter Care Teams Securities And Real Estate Director Relationship Specialty Start Date End Date Elsewhere, Pcp PCP - General Family Medicine 07/29/17 [facility] - Laboratory Medicine 04/12/[address] [address] documented as of this encounter
--- OUTSIDE RECORDS SUMMARY | 2022-04-13 12:05 | XMS_ITS | Encounter Summary ---
:1955 Author Organization [facility] Address [address] [place] [address] Care Team Providers Name Role Phone Elsewhere, Pcp Primary Care Provider Unavailable Reason for Referral Outpatient (Routine) - Closed Specialty Diagnoses / Procedures Referred By Contact Refer red To Contact Diagnoses Transplant Liver (HCC) Medication Therapy [facility] Not Anticoagulant Otoniel Linares M.D. [facility] Procedures BMD Bone Density Spine Hips [address] [place] [phone] Referral ID Status Reason Start Date Expiration Date Visits Requ ested Visits Authorized [id number] Closed 09/05/2021 09/05/2022 1 1 Encounter Details Date Type Department Care Team Description 09/04/2021 Orders Only Curt Mccann, Christelle Tra nsplant Liver (HCC) (Primary Dx); Center for E, R.N., Medication Ther apy Head Esthetician Not Anticoagulant Transplantation and C.C.T.C. 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 [address] [place] [phone] 05/08/2022 Appointment Laboratory Medicine Angélica Granger P.A.-C. [address] [place] [phone] 05/08/2022 Clinical Admitting/Central Communication Scheduling 05/10/2022 Appointment Radiology Jeremie Rose M.D. [address] [place] [phone] 05/10/2022 Comprehensive Visit Orthopedic Surgery Warner Graves M.D. [address] [place] [phone] 05/22/2022 Appointment Laboratory Medicine Angélica Granger P.A.-C. [address] [place] [phone] 06/05/2022 Appointment Laboratory Medicine Angélica Granger P.A.-C. [address] [place] [phone] 06/19/2022 Appointment Laboratory Medicine Angélica Granger P.A.-C. [address] [place] [phone] 07/03/2022 Appointment Laboratory Medicine Angélica Granger P.A.-C. [address] [place] [phone] 07/17/2022 Appointment Laboratory Medicine Angélica Granger P.A.-C. [address] [place] [phone] 07/31/2022 Appointment Laboratory Medicine Angélica Granger P.A.-C. [address] [place] [phone] 08/14/2022 Appointment Laboratory Medicine Angélica Granger P.A.-C. [address] [place] [phone] 08/28/2022 Appointment Laboratory Medicine Bárbara Angélica Stern P.A.-C. [address] [place] [address] documented as of this encounter Results BMD Bone Density Spine [...] Mineral Density (BMD) analysis perf ormed on [id number] with serial number [id number]. ? COMPARISON: Serial Comparisons Left Total Hip [...] including images and graphs, is available in [employer]. In the absence of other causes of [...] f racture is: FRAX Risk Factors: Glucocorticoids (Armature Straightener surinder), Secondary Osteoporosis FRAX (10 yr probability) Major Osteoporotic Fracture: ??10.3 % Hip Fracture: ?2.5 % ? Today's spine scan is considered non-barbi gnostic according to ISCD Guidelines. Procedure Note Nicholas Sanabria M.D. - 12/05/2021For matting of this note might be different from the original. EXAM: BMD BONE DENSITY SPINE HIPS Bone Mineral Density (BMD) analysis perf ormed on [id number] with serial number [id number]. COMPARISON: Serial Comparisons Left Total Hip results: [...] including images and graphs, is available in [employer]. In the absence of other causes of [...] image stored in the BMD study in [employer]), the calculated ten year probability of f racture is: FRAX Risk Factors: Glucocorticoids (Armature Straightener surinder), Secondary Osteoporosis FRAX (10 yr probability) Major Osteoporotic Fracture: 10.3 % Hip Fracture: 2.5 % Today's spine scan is considered non-barbi gnostic according to ISCD Guidelines. IMPRESSION: Low bone density (Osteopenia) DualFemur (region: Neck Right) Otoniel C Huebert M.D. IMG DXA PROCEDURES CMV DNA Detect / Quant, Plasma (12/03/2021 7:56 AM CDT) [facility] gist Method Time Signature CMV DNA Undetected Undetected 12/04/2021 [facility] Detect/Quant, IU/mL 4:00 PM CDT P Comment: Result in log IU/mL is Undetected. ----ADDITIONAL INFORMATION---- The quantification range of this assay i s 35 to 10,000,000 IU/mL (1.54 log to 7.00 log IU/mL). Testing was performed u sing the tika CMV test ([employer] with the tika [id number] System. Specimen Anatomical Collection Method Collection Time Receive d Time (Source) Location / / Volume Laterality Blood (Blood, 12/03/2021 7:56 AM 12/05/19 7:15 Venous) CDT AM CDT Otoniel Linares M.D. LAB MICROBIOLOGY - BLOOD ORD ERABLES Performing Organization Address City/State/ZIP Code Phon e Number ED [facility] [address] [place] [address] [facility] [address] Laboratory Medicine and Pathology [address] [place] documented in this encounter Visit Diagnoses Diagnosis Transplant Liver (HCC) - Primary Medication Therapy [facility] Not Anticoa gulant Transplant Liver (HCC) Medication Therapy [facility] Not Anticoa gulant documented in this encounter Additional Health Concerns Assessment Noted Time PHQ-9 Depression Total Score: 4 11/28/2020 10:17 AM CD T documented as of this encounter Care Teams Home Health Specialist Relationship Specialty Start Date End Date Elsewhere, Pcp PCP - General Family Medicine 07/29/17 [facility] - Laboratory Medicine 04/12/[address] [address] documented as of this encounter
--- OUTSIDE RECORDS SUMMARY | 2022-04-13 12:05 | XMS_ITS | Encounter Summary ---
:1955 Author Organization [facility] Address [address] [place] [address] Care Team Providers Name Role Phone Elsewhere, Pcp Primary Care Provider Unavailable Encounter Details Date Type Department Care Team Description 09/05/2021 Orders Only Division of Nephrology and Elissa Wilcox A PRN, Hypertension, Orthodoxy C.N.P. [place], in [place], [address] [place] [address] [place] [phone] [place] [address] [phone] Social History Tobacco Use Types Packs/Day Years [...] or relatives? How often do you attend mormonism or More than 4 times per year 12/15/2021 religion services? 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 [address] [place] [phone] 04/25/2022 Office Visit Otorhinolaryngology Dex Matta APRN, C.N.P., M.S.N. [address] [place] [phone] 05/08/2022 Appointment Laboratory Medicine Angélica Granger P.A.-C. [address] [place] [phone] 05/08/2022 Clinical Admitting/Central Communication Scheduling 05/10/2022 Appointment Radiology Jeremie Rose M.D. [address] [place] [phone] 05/10/2022 Comprehensive Visit Orthopedic Surgery Warner Graves M.D. [address] [place] [phone] 05/22/2022 Appointment Laboratory Medicine Angélica Granger P.A.-C. [address] [place] [phone] 06/05/2022 Appointment Laboratory Medicine Angélica Granger P.A.-C. [address] [place] [phone] 06/19/2022 Appointment Laboratory Medicine Angélica Granger P.A.-C. [address] [place] [phone] 07/03/2022 Appointment Laboratory Medicine Angélica Granger P.A.-C. [address] [place] [phone] 07/17/2022 Appointment Laboratory Medicine Angélica Granger P.A.-C. [address] [place] [phone] 07/31/2022 Appointment Laboratory Medicine Angélica Granger P.A.-C. [address] [place] [phone] 08/14/2022 Appointment Laboratory Medicine Angélica Granger P.A.-C. [address] [place] [phone] 08/28/2022 Appointment Laboratory Medicine Angélica Granger P.A.-C. [address] [place] [phone] documented as of this encounter Visit Diagnoses Not on filedocumented in this encounter Additional Health Concerns Assessment Noted Time PHQ-9 Depression Total Score: 4 11/28/2020 10:17 AM CD T documented as of this encounter Care Teams Advertising Production Manager Relationship Specialty Start Date End Date Elsewhere, Pcp PCP - General Family Medicine 07/29/17 [facility] - Laboratory Medicine 04/12/[address] [address] documented as of this encounter
--- OUTSIDE RECORDS SUMMARY | 2022-04-13 12:05 | XMS_ITS | Encounter Summary ---
:1955 Author Organization [facility] Address [address] [place] [address] Care Team Providers Name Role Phone Elsewhere, Pcp Primary Care Provider Unavailable Reason for Visit Reason Comments Txp Tacrolimus Adjustment Protocol - Liver Encounter Details Date Type Department Care Team Description 09/06/2021 Clinical Jessika Olivarez Txp [facility] for C, R.N. 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 - 09/06/2021 3:46 PM CDT Transplanted Organ and Date:06/12/2013 (Liver), 05/25/1999 (Liver) team number: Yolie Dubois Current tacrolimus goal level:2-4ng/ml 09/05: 1.4 ng/ml (2-4) on 1 mg twice daily 08/29: 2.5 ng/ml (2-4) on 1 mg twice daily 08/22: 1.8 ng/ml (2-4) on 1 mg twice daily 08/14: 4 ng/ml (2-4) on 1 mg twice daily 13 hour level Plan: Continue tacrolimus 1 mg twice daily. Recheck tacrolimus level in 1-2 weeks with 12 hour level. He has been labile on this dose, thus I'm hesitant to change with this one low reading and 13 hours. Telephone Encounter - Jessika Hebert RDemetriusNDemetrius - 09/06/2021 3:10 PM CDT Transplanted Organ and Date:06/12/2013 (Liver), 05/25/1999 (Liver) Liver RNCC: Yolie Dubois Current tacrolimus goal level: 2-4 ng/ml Last tacrolimus level and date: 1.4 ng/ml on 09/05 Current tacrolimus formulation and dose:1 mg BID Was the tacrolimus dose changed within the last 2 weeks?: No Missed doses in last week: No Medications changes in last week: No Vomiting?No Diarrhea? No New onset ESPINAL? No New onset tremor? No Pharmacy patient uses for immunosuppression: [facility] in [place], [place] Any other pertinent information related to above (please comment on any pertinent answers above)? 13hour trough; patient on dialysis. Dialysis team did increase his Torsemide to BID. Recommendations? documented in this encounter Plan of Treatment Upcoming Encounters Date Type Specialty Care Team Description 04/24/2022 Appointment Laboratory Medicine Angélica Granger P.A.-C. [address] [place] [phone] 04/25/2022 Office Visit Otorhinolaryngology Dex Matta APRN, C.N.P., M.S.N. [address] [place] [phone] 05/08/2022 Appointment Laboratory Medicine Angélica Granger P.A.-C. [address] [place] [phone] 05/08/2022 Clinical Admitting/Central Communication Scheduling 05/10/2022 Appointment Radiology Jeremie Rose M.D. [address] [place] [phone] 05/10/2022 Comprehensive Visit Orthopedic Surgery Warner Graves M.D. [address] [place] [phone] 05/22/2022 Appointment Laboratory Medicine Angélica Grnager P.A.-C. [address] [place] [phone] 06/05/2022 Appointment Laboratory Medicine Angélica Granger P.A.-C. [address] [place] [phone] 06/19/2022 Appointment Laboratory Medicine Angélica Granger P.A.-C. [address] [place] [phone] 07/03/2022 Appointment Laboratory Medicine Angélica Granger P.A.-C. [address] [place] [phone] 07/17/2022 Appointment Laboratory Medicine Angélica Granger P.A.-C. [address] [place] [phone] 07/31/2022 Appointment Laboratory Medicine Angélica Granger P.A.-C. [address] [place] [phone] 08/14/2022 Appointment Laboratory Medicine Angélica Granger P.A.-C. [address] [place] [phone] 08/28/2022 Appointment Laboratory Medicine Angélica Granger P.A.-C. [address] [place] [phone] documented as of this encounter Visit Diagnoses Not on filedocumented in this encounter Additional Health Concerns Assessment Noted Time PHQ-9 Depression Total Score: 4 11/28/2020 10:17 AM CD T documented as of this encounter Care Teams Cellar Packer Relationship Specialty Start Date End Date Elsewhere, Pcp PCP - General Family Medicine 07/29/17 [facility] - Laboratory Medicine 04/12/20 [place] [phone] documented as of this encounter
--- OUTSIDE RECORDS SUMMARY | 2022-04-13 12:05 | XMS_ITS | Encounter Summary ---
:1955 Author Organization [facility] Address [address] [place] [address] Care Team Providers Name Role Phone Elsewhere, Pcp Primary Care Provider Unavailable Encounter Details Date Type Department Care Team Description 09/06/2021 Orders Only Curt Garces Javier, Gail Griffiths Kidney Disease; Center for M.D. 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 [address] [place] [phone] 04/25/2022 Office Visit Otorhinolaryngology Dex Matta, RAMONA, C.N.P., M.S.N. [address] [place] [phone] 05/08/2022 Appointment Laboratory Medicine Angélica Granger, P.A.-C. [address] [place] [phone] 05/08/2022 Clinical Admitting/Central Communication Scheduling 05/10/2022 Appointment Radiology Jeremie Rose M.D. [address] [place] [phone] 05/10/2022 Comprehensive Visit Orthopedic Surgery Warner Graves M.D. [address] [place] [phone] 05/22/2022 Appointment Laboratory Medicine Angélica Granger P.A.-C. [address] [place] [phone] 06/05/2022 Appointment Laboratory Medicine Angélica Granger P.A.-C. [address] [place] [phone] 06/19/2022 Appointment Laboratory Medicine Angélica Granger P.A.-C. [address] [place] [phone] 07/03/2022 Appointment Laboratory Medicine Angélica Granger P.A.-C. [address] [place] [phone] 07/17/2022 Appointment Laboratory Medicine Angélica Granger P.A.-C. [address] [place] [phone] 07/31/2022 Appointment Laboratory Medicine Angélica Granger P.A.-C. [address] [place] [phone] 08/14/2022 Appointment Laboratory Medicine Angélica Granger P.A.-C. [address] [place] [phone] 08/28/2022 Appointment Laboratory Medicine Angélica Granger P.A.-C. [address] [place] [phone] documented as of this encounter Results HLA Class II SAB Antibody Screen (09/21/2021 2:00 PM CDT) [facility] Time Signature Class II SAB Negative Not [...] NONE 09/26/2021 10:09 PM CDT DBB8 SAB [id number] Specificity NONE 09/26/2021 10:09 PM CDT DBB8 SAB DQB1 Specificity NONE 09/26/2021 10:09 PM CDT DBB8 SAB DPB1 Specificity NONE 09/26/2021 10:09 PM CDT DBB8 Comment: ----ADDITIONAL INFORMATION---- Method: Luminex Flow Cytometry CLIA: [id number] ??CLIA Pharmacy Grad Intern: KRISTAL MIMS MD,PhD Specimen Anatomical Collection Method Collection Time Receive d Time (Source) Location / / Volume Laterality Blood (Blood, 09/21/2021 2:00 PM 09/26/19 22 2:41 Venous) CDT PM CDT Resulting Agency Comment Mailed In Specimen Willis Herrera M.D. LAB HLA ORDERABLES Performing Organization Address City/State/ZIP Code Phon e Number [facility] - [address] [place], [place] [address] [facility] [address] [place] [address] [facility] [address] [facility] HLA Class I SAB Antibody Screen (09/21/2021 2:00 PM CDT) [facility] Method Time Signature Class I SAB Negative [...] ----ADDITIONAL INFORMATION---- Method: Luminex Flow Cytometry CLIA: [id number] ??CLIA Pharmacy Grad Intern: KRISTAL MIMS MD,PhD Specimen Anatomical Collection Method Collection Time Receive d Time (Source) Location / / Volume Laterality Blood (Blood, 09/21/2021 2:00 PM 09/26/19 22 2:41 Venous) CDT PM CDT Resulting Agency Comment Mailed In Specimen Willis Herrera M.D. LAB HLA ORDERABLES Performing Organization Address City/State/ZIP Code Phon e Number [facility] - [address] [place], [place] [address] [facility] [address] [place] [address] [facility] [address] documented in this encounter Visit Diagnoses Diagnosis Chronic Kidney Disease Pretransplant Recipient Evaluation Exam documented in this encounter Additional Health Concerns Assessment Noted Time PHQ-9 Depression Total Score: 4 11/28/2020 10:17 AM CD T documented as of this encounter Care Teams Content Specialist Relationship Specialty Start Date End Date Elsewhere, Pcp PCP - General Family Medicine 07/29/17 [facility] - Laboratory Medicine 04/12/[address] [address] documented as of this encounter
--- OUTSIDE RECORDS SUMMARY | 2022-04-13 12:05 | XMS_ITS | Encounter Summary ---
:1955 Author Organization [facility] Address [address] [place] [address] Care Team Providers Name Role Phone Elsewhere, Pcp Primary Care Provider Unavailable Reason for Visit Reason Comments Txp Tacrolimus Adjustment Protocol - Liver Encounter Details Date Type Department Care Team Description 08/24/2021 Clinical Curt Moss, Josep [facility] Communication Center for Yolie R, Adjustment Transplantation and R.N. Protocol - Liver Clinical Regeneration [address] [facility] [address] [facility] [phone] Social History Tobacco Use Types Packs/Day Years [...] More than 4 times per year 12/15/2021 judaism services? 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 - 08/24/2021 8:24 AM CST Tacrolimus level within goal range of 1.7-4, per Tacrolimus Adjustment Protocol no dose change recommended. Other lab results received and reviewed, stable trends, continue monitoring weekly. 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 [address] [place] [phone] 04/25/2022 Office Visit Otorhinolaryngology Dex Matta APRN, C.N.P., M.S.N. [address] [place] [address] [phone] 05/08/2022 Appointment Laboratory Medicine Angélica Granger P.A.-CDemetrius [address] [place] [phone] 05/08/2022 Clinical Admitting/Central Communication Scheduling 05/10/2022 Appointment Radiology Jeremie Rose M.D. [address] [place] [phone] 05/10/2022 Comprehensive Visit Orthopedic Surgery Warner Graves M.D. [address] [place] [phone] 05/22/2022 Appointment Laboratory Medicine Angélica Granger P.A.-C. [address] [place] [phone] 06/05/2022 Appointment Laboratory Medicine Angélica Granger P.A.-C. [address] [place] [phone] 06/19/2022 Appointment Laboratory Medicine Angélica Granger P.A.-C. [address] [place] [phone] 07/03/2022 Appointment Laboratory Medicine Angélica Granger P.A.-C. [address] [place] [phone] 07/17/2022 Appointment Laboratory Medicine Angélica Granger P.A.-C. [address] [place] [phone] 07/31/2022 Appointment Laboratory Medicine Angélica Granger P.A.-C. [address] [place] [phone] 08/14/2022 Appointment Laboratory Medicine Angélica Granger P.A.-C. [address] [place] [phone] 08/28/2022 Appointment Laboratory Medicine Angélica Granger P.A.-C. [address] [place] [phone] documented as of this encounter Visit Diagnoses Not on filedocumented in this encounter Additional Health Concerns Assessment Noted Time PHQ-9 Depression Total Score: 4 11/28/2020 10:17 AM CD T documented as of this encounter Care Teams Healthcare Translator Relationship Specialty Start Date End Date Elsewhere, Pcp PCP - General Family Medicine 07/29/17 [facility] - Laboratory Medicine 04/12/[address] [address] documented as of this encounter
--- OUTSIDE RECORDS SUMMARY | 2022-04-13 12:05 | XMS_ITS | Encounter Summary ---
:[address] [facility] Address [address] [place] [address] Care Team Providers Name Role Phone Elsewhere, Pcp Primary Care Provider Unavailable Encounter Details Date Type Department Care Team Description 08/29/2021 Hospital Encounter Department of Trung Plasencia nt Liver (HCC); Laboratory Medicine Edmundo Stren, Medicati on Therapy Jail Not Anticoagulant; in Jimmie Blake M.S. Colitis Cytomegalovirus (HCC) [address] [address] [place], [place] [phone] (Work) [phone] Social History Tobacco Use Types Packs/Day Years [...] at Date Recorded Male 05/16/2020 4:27 PM BODY ART TECHNICIAN documented as of this encounter Medications [...] MOUTH DAILY Transplant Liver (HCC), Medication Therapy Horses Or Mules Teamster Not Anticoagulant tacrolimus (PROGRAF) 0.5 TAKE 2 CAPSULES BY 360 capsule 3 10/16/2021 mg capsuleIndications: MOUTH TWICE DAILY Transplant Liver (HCC), Medication Therapy Horses Or Mules Teamster Not Anticoagulant torsemide (DEMADEX) 10 Take 3 tablets (30 270 tablet 3 08/1709/05/2021 mg tablet mg total) by mouth daily. [...] Laboratory Medicine Angélica Granger P.A.-C. [address] [place] [phone] 04/25/2022 Office Visit Otorhinolaryngology Dex Matta APRN, C.N.P., M.S.N. [address] [place] [phone] 05/08/2022 Appointment Laboratory Medicine Angélica Granger P.A.-C. [address] [place] [phone] 05/08/2022 Clinical Admitting/Central Communication Scheduling 05/10/2022 Appointment Radiology Jeremie Rose M.D. [address] [place] [phone] 05/10/2022 Comprehensive Visit Orthopedic Surgery Warner Graves M.D. [address] [place] [phone] 05/22/2022 Appointment Laboratory Medicine Angélica Granger P.A.-C. [address] [place] [phone] 06/05/2022 Appointment Laboratory Medicine Angélica Granger P.A.-C. [address] [place] [phone] 06/19/2022 Appointment Laboratory Medicine Angélica Granger P.A.-C. [address] [place] [phone] 07/03/2022 Appointment Laboratory Medicine Angélica Granger P.A.-C. [address] [place] [phone] 07/17/2022 Appointment Laboratory Medicine Angélica Granger P.A.-C. [address] [place] [phone] 07/31/2022 Appointment Laboratory Medicine Angélica Granger P.A.-C. [address] [place] [phone] 08/14/2022 Appointment Laboratory Medicine Angélica Granger P.A.-C. [address] [place] [phone] 08/28/2022 Appointment Laboratory Medicine Angélica Granger P.A.-C. [address] [place] [phone] documented as of this encounter Procedures Procedure Name Priority Date/Time Associated Diagnosis Comme nts CBC WITHOUT Routine 08/29/2021 7:25 Transplant Liver (HCC) Results for this DIFFERENTIAL, B AM BODY ART TECHNICIAN Medication Therapy proced ure are in Horses Or Mules Teamster Not the results Anticoagulant section. Colitis Cytomegalovirus (HCC) GLUCOSE, FASTING, S/P Routine 08/29/2021 7:25 Transplant Liver (HCC) Results for this AM BODY ART TECHNICIAN Medication Therapy procedure are in Jail Not the results Anticoagulant section. Colitis Cytomegalovirus (HCC) COMPREHENSIVE Routine 08/29/2021 7:25 Transplant Liver (HCC) Results for this METABOLIC PANEL, S/P AM BODY ART TECHNICIAN Medication Therapy p rocedure are in Jail Not the results Anticoagulant section. Colitis Cytomegalovirus (HCC) CMV DNA DETECT/QUANT, Routine 08/29/2021 7:24 Transplant Liver (HCC) Results for this P AM BODY ART TECHNICIAN Medication Therapy procedure are in Jail Not the results Anticoagulant section. Colitis Cytomegalovirus (HCC) TACROLIMUS LEVEL, B Routine 08/29/2021 7:24 Transplant L iver (HCC) Results for this AM BODY ART TECHNICIAN Medication Therapy procedure are in Horses Or Mules Teamster Not the results Anticoagulant section. Colitis Cytomegalovirus (HCC) documented in this encounter Results (ABNORMAL) Glucose, Fasting (08/29/2021 7:25 AM BODY ART TECHNICIAN) P athologist Signature Glucose, P 120 (H) 70 - 100 08/29/2021 CNFL mg/dL 7:54 AM BODY ART TECHNICIAN Last Intake 10 hr 08/29/2021 CNFL 7:31 AM BODY ART TECHNICIAN Specimen Anatomical Collection Method Collection Time Receive d Time (Source) Location / / Volume Laterality Blood (Blood, 08/29/2021 7:25 AM 08/30/19 7:31 Venous) BODY ART TECHNICIAN AM BODY ART TECHNICIAN Trung Plasencia P.A.-C., M.S. LAB BLOOD NON ADD-ON Performing Organization Address City/State/[facility] Code Phon e Number [phone] [place] [address] [place] [address] [address] (ABNORMAL) Comprehensive Metabolic Panel (08/29/2021 7:25 AM BODY ART TECHNICIAN) Analysis Performed At Patho logist Time Signature Potassium, P 3.7 3.6 - 5.2 08/29/2021 CNFL mmol/L 7:57 AM BODY ART TECHNICIAN Sodium, P 136 135 - 145 08/29/2021 CNFL mmol/L 7:57 AM BODY ART TECHNICIAN Chloride, P 99 98 - 107 08/29/2021 CNFL mmol/L 7:57 AM BODY ART TECHNICIAN Bicarbonate, P 21 (L) 22 - 29 08/29/2021 CNFL mmol/L 7:57 AM BODY ART TECHNICIAN Anion Gap, P 16 (H) 7 - 15 08/29/2021 CNFL 7:57 AM BODY ART TECHNICIAN BUN (Blood Urea 44 (H) 8 - 24 08/29/2021 CNFL Nitrogen), P mg/dL 7:57 AM BODY ART TECHNICIAN Creatinine 3.72 (H) 0.74 - 08/29/2021 CNFL 1.35 mg/dL 7:57 AM BODY ART TECHNICIAN eGFR-Black/Afri 18 (L) >=60 08/29/2021 CNFL can [place] mL/min/BSA 7:57 AM BODY ART TECHNICIAN Comment: ----ADDITIONAL INFORMATION---- Estimated GFR calculated using the 2009 CKD_EPI creatinine equation. eGFR Non-Black/ 16 (L) >=60 mL/min/BSA 08/29/2021 7:57 AM BODY ART TECHNICIAN CNFL [place] Comment: ----ADDITIONAL INFORMATION---- Estimated GFR calculated using the 2009 CKD_EPI creatinine equation. Calcium, Total, P 9.3 8.8 - 10.2 mg/dL 08/29/2021 7:57 AM BODY ART TECHNICIAN CNFL Glucose, P CANCELED mg/dL 08/29/2021 7:31 AM BODY ART TECHNICIAN CNFL Comment: Duplicate test request. Result canceled by the ancillary. Protein, Total, P 6.5 6.3 - 7.9 g/dL 08/29/2021 7:57 A M BODY ART TECHNICIAN CNFL Albumin, P 4.1 3.5 - 5.0 g/dL 08/29/2021 7:57 AM BODY ART TECHNICIAN C NFL Aspartate Aminotransferase (AST), 22 8 - 48 U/L 08/29 7:57 AM BODY ART TECHNICIAN CNFL P Alkaline Phosphatase, P 123 40 - 129 U/L 08/29/2021 7: 57 AM BODY ART TECHNICIAN CNFL Alanine Aminotransferase (ALT), P 19 7 - 55 U/L 08/29 7:57 AM BODY ART TECHNICIAN CNFL Bilirubin, Total, P 0.2 <=1.2 mg/dL 08/29/2021 7:57 AM BODY ART TECHNICIAN CNFL Specimen Anatomical Collection Method Collection Time Receive d Time (Source) Location / / Volume Laterality Blood (Blood, 08/29/2021 7:25 AM 08/30/19 7:31 Venous) BODY ART TECHNICIAN AM BODY ART TECHNICIAN Trung Plasencia P.A.-C., M.S. LAB BLOOD ADD-ON Performing Organization Address City/State/ZIP Code Phon e Number [facility]- [address] [place] [address] [place] [address] [place] [address] (ABNORMAL) CBC without Differential (08/29/2021 7:25 AM BODY ART TECHNICIAN) [facility] gist Method Time Signature Hemoglobin 9.9 (L) 13.2 - 08/29/2021 CNFL 16.6 g/dL 8:19 AM BODY ART TECHNICIAN Hematocrit 30.9 (L) 38.3 - 08/29/2021 CNFL 48.6 % 8:19 AM BODY ART TECHNICIAN Erythrocytes 3.16 (L) 4.35 - 08/29/2021 CNFL 5.65 8:19 AM BODY ART TECHNICIAN x10(12)/L MCV 97.8 78.2 - 08/29/2021 CNFL 97.9 fL 8:19 AM BODY ART TECHNICIAN RBC Distrib Width 13.2 11.8 - 08/29/2021 CNFL 14.5 % 8:19 AM BODY ART TECHNICIAN Platelet Count 238 135 - 317 08/29/2021 CNFL x10(9)/L 8:19 AM BODY ART TECHNICIAN Leukocytes 4.8 3.4 - 9.6 08/29/2021 CNFL x10(9)/L 8:19 AM BODY ART TECHNICIAN Specimen Anatomical Collection Method Collection Time Receive d Time (Source) Location / / Volume Laterality Blood (Blood, 08/29/2021 7:25 AM 08/30/19 7:31 Venous) BODY ART TECHNICIAN AM BODY ART TECHNICIAN Trung Plasencia P.A.-C., M.S. LAB BLOOD ADD-ON Performing Organization Address City/State/[facility] Code Phon e Number [facility]- [address] [place] [phone] [place] [address] LAB CNFL [place] [phone] System in [address] (ABNORMAL) Tacrolimus, B (08/29/2021 7:24 AM BODY ART TECHNICIAN) P athologist Signature Tacrolimus, B 2.5 (L) 5.0-15.0 08/30/2021 SDSC (Trough) 10:56 AM BODY ART TECHNICIAN ng/mL Comment: ----ADDITIONAL INFORMATION---- Target steady-state trough concentration s vary depending on the type of transplant, concomitant immunosuppressio n, clinical/institutional protocols, and time post-transplant. Results should be interpreted in conjunction with this clinical information and any physic al signs/symptoms of rejection/toxicity. Testing performed by Liquid Chromatograp hy-Tandem Mass Spectrometry (LC-MS/MS). This test was developed and its performa nce characteristics determined by [facility] in a manner consistent with CLIA requirements. This test has not been cleared or approved by the U.S. Mer d and Drug Administration. Specimen Anatomical Collection Method Collection Time Receive d Time (Source) Location / / Volume Laterality Blood (Blood, 08/29/2021 7:24 AM 08/31/19 22 7:30 Venous) BODY ART TECHNICIAN AM BODY ART TECHNICIAN Trung Plasencia P.A.-C., M.S. LAB BLOOD NON ADD-ON Performing Organization Address [facility] Phon e Number [facility] [address] [place] [phone] [facility] [place] [address] Laboratory Medicine and Pathology [address] [place] [address] Dr. MURILLO (ABNORMAL) CMV DNA Detect / Quant, Plasma (08/29/2021 7:24 AM BODY ART TECHNICIAN) [facility] Method Time Signature CMV DNA <35 (A) Undetected 08/30/2021 [facility] Detect/Quant, IU/mL 4:21 PM BODY ART TECHNICIAN P Comment: Result in log IU/mL is <1.54. CMV DNA is detected, but level present i s <35 IU/mL (<1.54 log IU/mL). This assay cannot accurately quantify CMV DNA below this level. ----ADDITIONAL INFORMATION---- The quantification range of this assay i s 35 to 10,000,000 IU/mL (1.54 log to 7.00 log IU/mL). Testing was performed u sing the tika CMV test ([employer] with the tika 6800 System. Specimen Anatomical Collection Method Collection Time Receive d Time (Source) Location / / Volume Laterality Blood (Blood, 08/29/2021 7:24 AM 08/30/19 22 8:08 Venous) BODY ART TECHNICIAN PM BODY ART TECHNICIAN Lynn Gonzalez P.A.-C.SDemetrius LAB MICROBIOLOGY - BLOOD O RDERABLES Performing Organization Address City/[facility] Phon e Number [facility] [address] [place] [phone] [address] [facility] [place] [address] Laboratory Medicine and Pathology [address] [place] [address] Dr. MURILLO documented in this encounter Visit Diagnoses Diagnosis Transplant Liver (HCC) Medication Therapy Jail Not Anticoa gulant Colitis Cytomegalovirus (HCC) documented in this encounter Additional Health Concerns Assessment Noted Time PHQ-9 Depression Total Score: 4 11/28/2020 10:17 AM CD T documented as of this encounter Care Teams Light Rail Operator Relationship Specialty Start Date End Date Elsewhere, Pcp PCP - General Family Medicine 07/29/17 [facility] - Laboratory Medicine 04/12/20 [place] [address] documented as of this encounter
--- OUTSIDE RECORDS SUMMARY | 2022-04-13 12:06 | XMS_ITS | Encounter Summary ---
:1955 Author Organization [facility] Address [address] [place] [address] Care Team Providers Name Role Phone Elsewhere, Pcp Primary Care Provider Unavailable Reason for Referral Outpatient (Routine) - Closed Specialty Diagnoses / Procedures Referred By Contact Refer red To Contact Radiology Diagnoses Transplant Liver (HCC) Medication Therapy Anesthesiologist Not Anticoagulant Colitis Cytomegalovirus (HCC) Trung Plasencia P.A.-C., [facility] Procedures IR PICC Line Removal M.S. [address] [place] [phone] Referral ID Status Reason Start Date Expiration Date Visits Requ ested Visits Authorized [id number] Closed 08/08/2021 08/08/2022 1 1 UNICATIONS LEAD Reason for Visit Outpatient (Routine) - Closed Specialty Diagnoses / Procedures Referred By Contact Refer red To Contact Radiology Diagnoses Transplant Liver (HCC) Medication Therapy Senior Care Not Anticoagulant Colitis Cytomegalovirus (HCC) Trung Plasencia P.A.-C., [facility] Procedures IR PICC Line Removal M.S. [address] [place] [phone] Referral ID Status Reason Start Date Expiration Date Visits Requ ested Visits Authorized [id number] Closed 08/08/2021 08/08/2022 1 1 Encounter Details Date Type Department Care Team Description 08/14/2021 Hospital Encounter Department of Trung Plasencia nt Liver (HCC); Radiology, Kd Stern P.A.-C., Medication Therapy Anesthesiologist Not Anticoagulant; Building, in M.S. Colitis Cytomegalovirus (HCC) [place], [address] [place], [place] 200 [facility] [address] [place], [place] [phone] (Work) [phone] Social History Tobacco Use Types Packs/Day Years [...] at Date Recorded Male 05/16/2020 4:27 PM COMMUNICATIONS LEAD documented as of this encounter Last Filed Vital Signs Vital Sign Reading Time Taken Comments Blood Pressure - - Pulse 71 08/14/2021 10:10 AM COMMUNICATIONS LEAD Temperature - - Respiratory Rate - - Oxygen Saturation 97% 08/14/2021 10:10 AM COMMUNICATIONS LEAD Inhaled Oxygen Concentration - - Weight - [...] hours as needed for nausea or vomiting. amoxicillin-pot Take 1 tablet (500 14 tablet 0 08/15/2021 0 08/29/2021 clavulanate (AUGMENTIN) mg total) by mouth 500-125 mg per tablet daily for 14 days. Take after dialysis on dialysis days. vancomycin (VANCOCIN) Take 1 capsule (125 42 capsule 0 08/1609/06/2021 125 mg capsule mg total) by mouth 2 (two) times a day for 21 days. acetaminophen (TYLENOL) Take 1 tablet (500 0 02/06/202110/12/2021 500 mg tablet mg total) by mouth [...] needed. Lactobacillus Take 1 capsule by 0 08/15/202109/22 acidophilus capsule mouth 2 (two) times a [...] of 10 Indication: Acute Pain. predniSONE (DELTASONE) 5 TAKE 1 TABLET(5 MG) 90 tablet 3 10/16/2021 mg tabletIndications: BY MOUTH DAILY Transplant Liver (HCC), Medication Therapy Senior Care Not Anticoagulant sulfamethoxazole-trimeth Take 1 tablet by 14 tablet 0 08/1508/29/2021 oprim (BACTRIM DS) mouth daily for 14 800-160 mg per tablet days. Take after dialysis on dialysis days tacrolimus (PROGRAF) 0.5 TAKE 2 CAPSULES BY 360 capsule 3 10/16/2021 mg capsuleIndications: MOUTH TWICE DAILY Transplant Liver (HCC), Medication Therapy Anesthesiologist Not Anticoagulant torsemide (DEMADEX) 10 Take 30 mg by mouth 0 08/17/2021 mg tablet daily. UNABLE TO FIND by nasal 0 [...] Laboratory Medicine Angélica Granger P.A.-C. [address] [place] [address] [phone] 04/25/2022 Office Visit Otorhinolaryngology Dex Matta APRN, C.N.P., M.S.N. [address] [place] [phone] 05/08/2022 Appointment Laboratory Medicine Angélica Granger P.A.-C. [address] [place] [phone] 05/08/2022 Clinical Admitting/Central Communication Scheduling 05/10/2022 Appointment Radiology Jeremie Rose M.D. [address] [place] [phone] 05/10/2022 Comprehensive Visit Orthopedic Surgery Warner Graves M.D. [address] [place] [phone] 05/22/2022 Appointment Laboratory Medicine Angélica Granger P.A.-C. [address] [place] [phone] 06/05/2022 Appointment Laboratory Medicine Angélica Granger P.A.-C. [address] [place] [phone] 06/19/2022 Appointment Laboratory Medicine Angélica Granger P.A.-C. [address] [place] [phone] 07/03/2022 Appointment Laboratory Medicine Angélica Granger P.A.-C. [address] [place] [phone] 07/17/2022 Appointment Laboratory Medicine Angélica Granger P.A.-C. [address] [place] [phone] 07/31/2022 Appointment Laboratory Medicine Angélica Granger P.A.-C. [address] [place] [phone] 08/14/2022 Appointment Laboratory Medicine Angélica Granger P.A.-C. [address] [place] [phone] 08/28/2022 Appointment Laboratory Medicine Angélica Granger P.A.-C. [address] [place] [phone] documented as of this encounter Procedures Procedure Name Priority Date/Time Associated Diagnosis Comme nts IR PICC LINE RAD - Routine 08/14/2021 10:34 Transplant Liver Result s for REMOVAL (most inpatients AM COMMUNICATIONS LEAD (HCC) this procedure and all Medication Therapy are in th e outpatients) Senior Care Not results Anticoagulant section. Colitis Cytomegalovirus (HCC) documented in this encounter Results IR PICC Line Removal (08/14/2021 10:34 AM COMMUNICATIONS LEAD) Anatomical Region Laterality Modality Chest, Pelvis, Abdomen, Vascular Interventional RST LOS, N/A X-Ray Angiography Vascular Interventional ARZ LOS, Vascular Interventional FLA LOS Specimen (Source) Anatomical Collection Method Collection Time Re ceived Time Location / / Volume Laterality 08/14/2021 2:18 PM COMMUNICATIONS LEAD Impressions 08/14/2021 2:20 PM COMMUNICATIONS LEAD Successful removal of left internal jugular vein tunneled PICC line NR Narrative 08/14/2021 2:20 PM COMMUNICATIONS LEAD EXAM: IR PICC LINE REMOVAL CLINICAL HISTORY: 65-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 Primary service has deemed the line no l onger needed and is requesting removal. TECHNIQUE: Patient was placed supine, re cumbent in the hospital bed. Previous catheter dressing was removed. Left upper neck and chest were cleansed with chlorhexidine. Retention suture was removed. Catheter was then removed intact and in its entirety. Manual pressure was applied at the catheter insertion and venotomy sites to achieve hemostasis. New sterile dressing was applied at the catheter insertion site. Dressing to remain in pl farzana for 48 hours after which time the [...] medical records. Procedure Note Mayra Infante P.A.-C., Lynn DoranS. 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 Primary service has deemed the line no l onger needed and is requesting removal. TECHNIQUE: Patient was placed supine, re cumbent in the hospital bed. Previous catheter dressing was removed. Left upper neck and chest were cleansed with chlorhexidine. Retention suture was removed. Catheter was then removed intact and in its entirety. Manual pressure was applied at the catheter insertion and venotomy sites to achieve hemostasis. New sterile dressing was applied at the catheter insertion site. Dressing to remain in pl farzana for 48 hours after which time the [...] electronic medical records. IMPRESSION: Successful removal of left internal jugu lar vein tunneled PICC line NR Trung Plasencia P.A.-C., MDemetriusS. IMG IR PROCEDURES documented in this encounter Visit Diagnoses Diagnosis Transplant Liver (HCC) Medication Therapy Anesthesiologist Not Anticoa gulant Colitis Cytomegalovirus (HCC) documented in this encounter Additional Health Concerns Assessment Noted Time PHQ-9 Depression Total Score: 4 11/28/2020 10:17 AM CD T documented as of this encounter Care Teams Arc Cutter Plasma Arc Relationship Specialty Start Date End Date Elsewhere, Pcp PCP - General Family Medicine 07/29/17 [facility] - Laboratory Medicine 04/12/20 [place] [phone] documented as of this encounter
--- OUTSIDE RECORDS SUMMARY | 2022-04-13 12:06 | XMS_ITS | Encounter Summary ---
:1955 Author Organization [facility] Address [address] [place] [address] Care Team Providers Name Role Phone Elsewhere, Pcp Primary Care Provider Unavailable Reason for Visit Reason Comments Med Refill Encounter Details Date Type Department Care Team Description 08/08/2021 Refill Curt Rene [facility] for BaldemarWillis matthew M.D. 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 [address] [place] [phone] 04/25/2022 Office Visit Otorhinolaryngology Dex Matta APRN, C.N.P., M.S.N. [address] [place] [phone] 05/08/2022 Appointment Laboratory Medicine Angélica Granger, P.A.-C. [address] [place] [phone] 05/08/2022 Clinical Admitting/Central Communication Scheduling 05/10/2022 Appointment Radiology Jeremie Rose M.D. [address] [place] [phone] 05/10/2022 Comprehensive Visit Orthopedic Surgery Warner Graves M.D. [address] [place] [phone] 05/22/2022 Appointment Laboratory Medicine Angélica Granger P.A.-C. [address] [place] [phone] 06/05/2022 Appointment Laboratory Medicine Angélica Granger P.A.-C. [address] [place] [phone] 06/19/2022 Appointment Laboratory Medicine Angélica Granger P.A.-C. [address] [place] [phone] 07/03/2022 Appointment Laboratory Medicine Angélica Granger P.A.-C. [address] [place] [phone] 07/17/2022 Appointment Laboratory Medicine Angélica Granger P.A.-C. [address] [place] [phone] 07/31/2022 Appointment Laboratory Medicine Angélica Granger P.A.-C. [address] [place] [phone] 08/14/2022 Appointment Laboratory Medicine Angélica Granger P.A.-C. [address] [place] [phone] 08/28/2022 Appointment Laboratory Medicine Angélica Granger P.A.-C. [address] [place] [phone] documented as of this encounter Visit Diagnoses Diagnosis Transplant Liver (HCC) Medication Therapy Airport Driver Not Anticoa gulant Colitis Cytomegalovirus (HCC) documented in this encounter Additional Health Concerns Assessment Noted Time PHQ-9 Depression Total Score: 4 11/28/2020 10:17 AM CD T documented as of this encounter Care Teams Roofing Contractor Relationship Specialty Start Date End Date Elsewhere, Pcp PCP - General Family Medicine 07/29/17 [facility] - Laboratory Medicine 04/12/20 [place] [phone] documented as of this encounter
--- OUTSIDE RECORDS SUMMARY | 2022-04-13 12:06 | XMS_ITS | Encounter Summary ---
:1955 Author Organization [facility] Address [address] [place] [address] Care Team Providers Name Role Phone Elsewhere, Pcp Primary Care Provider Unavailable Reason for Visit Reason Comments Med Refill Encounter Details Date Type Department Care Team Description 08/13/2021 Clinical Communication Division of Nephrology Eve Garcia Med Refill and Hypertension in RAM[place], C.N.P., [place], [place] D.N.P. 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 - 08/17/2021 7:24 AM PROOF INSPECTOR I have sent refills to [facility] [place]. He is informed. Thank you. F INSPECTOR Telephone Encounter - Roland Lim - 08/16/2021 3:29 PM CST Patient calls again wondering why he has not received the medication renewal. F INSPECTOR Telephone Encounter - Roland Lim - 08/13/2021 9:23 AM CST Caller is: patient Reason for call: Chief Complaint Patient presents with ??? Med Refill Pertinent Information: Patient needs torsemide refill. He would like it sent to [facility] in [facility]. Preferred Communication Method: [phone] (mobile) Patient pharmacy: [id number] - [place], [place] - [facility] [address] [facility] [address] [facility] [id number] [facility] [place], [place] - [address] [place] [address] [place] [address] [facility] [place], [place] - [address] [facility] [address] F INSPECTOR documented in this encounter Plan of Treatment Upcoming Encounters Date Type Specialty Care Team Description 04/24/2022 Appointment Laboratory Medicine Angélica Granger P.A.-C. [address] [place] [phone] 04/25/2022 Office Visit Otorhinolaryngology Dex Matta APRN, C.N.P., M.S.N. [address] [place] [address] [phone] 05/08/2022 Appointment Laboratory Medicine Angélica Granger P.A.-C. [address] [place] [address] [phone] 05/08/2022 Clinical Admitting/Central Communication Scheduling 05/10/2022 Appointment Radiology Jeremie Rose M.D. [address] [place] [phone] 05/10/2022 Comprehensive Visit Orthopedic Surgery Warner Graves M.D. [address] [place] [phone] 05/22/2022 Appointment Laboratory Medicine Angélica Granger P.A.-C. [address] [place] [phone] 06/05/2022 Appointment Laboratory Medicine Angélica Granger P.A.-C. [address] [place] [phone] 06/19/2022 Appointment Laboratory Medicine Angélica Granger P.A.-C. [address] [place] [phone] 07/03/2022 Appointment Laboratory Medicine Angélica Granger P.A.-C. [address] [place] [phone] 07/17/2022 Appointment Laboratory Medicine Angélica Granger P.A.-C. [address] [place] [phone] 07/31/2022 Appointment Laboratory Medicine Angélica Granger P.A.-C. [address] [place] [phone] 08/14/2022 Appointment Laboratory Medicine Angélica Granger P.A.-C. [address] [place] [phone] 08/28/2022 Appointment Laboratory Medicine Angélica Granger P.A.-C. [address] [place] [phone] documented as of this encounter Visit Diagnoses Not on filedocumented in this encounter Additional Health Concerns Assessment Noted Time PHQ-9 Depression Total Score: 4 11/28/2020 10:17 AM CD T documented as of this encounter Care Teams Supervisor Fishing Relationship Specialty Start Date End Date Elsewhere, Pcp PCP - General Family Medicine 07/29/17 [facility] - Laboratory Medicine 04/12/[address] [address] documented as of this encounter
--- OUTSIDE RECORDS SUMMARY | 2022-04-13 12:06 | XMS_ITS | Encounter Summary ---
:1955 Author Organization [facility] Address [address] [place] [address] Care Team Providers Name Role Phone Elsewhere, Pcp Primary Care Provider Unavailable Encounter Details Date Type Department Care Team Description 08/22/2021 Hospital Encounter Department of Trung Plasencia Liver (HCC); Laboratory Medicine Edmundo Stern, Medicati on Therapy Engine Repairer Production Not Anticoagulant; in Jimmie Blake M.S. 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 Take after dialysis on dialysis days tacrolimus (PROGRAF) 0.5 TAKE 2 CAPSULES BY 360 capsule 3 10/16/2021 mg capsuleIndications: MOUTH TWICE DAILY Transplant Liver (HCC), Medication Therapy Detention Not Anticoagulant torsemide (DEMADEX) 10 Take 3 tablets (30 270 tablet 3 08/1709/05/2021 mg tablet mg total) by mouth daily. traZODone (DESYREL) 50 Take 0.5 tablets 30 tablet 0 022 08/27/2021 mg tablet (25 mg total) by mouth at bedtime as needed for sleep. UNABLE TO FIND by nasal 0 10/12/2021 [...] Angélica Granger P.A.-C. [address] [place] [phone] 04/25/2022 Office Visit Otorhinolaryngology Dex Matta APRN, C.N.P., M.S.N. [address] [place] [address] [phone] 05/08/2022 Appointment Laboratory Medicine Angélica Granger P.A.-CDemetrius [address] [place] [phone] 05/08/2022 Clinical Admitting/Central Communication Scheduling 05/10/2022 Appointment Radiology Jeremie Rose M.D. [address] [place] [phone] 05/10/2022 Comprehensive Visit Orthopedic Surgery Warner Graves M.D. [address] [place] [phone] 05/22/2022 Appointment Laboratory Medicine Angélica Granger P.A.-CDemetrius [address] [place] [address] [phone] 06/05/2022 Appointment Laboratory Medicine Angélica Granger P.A.-C. [address] [place] [address] [phone] 06/19/2022 Appointment Laboratory Medicine Angélica Granger P.A.-C. [address] [place] [phone] 07/03/2022 Appointment Laboratory Medicine Angélica Granger P.A.-C. [address] [place] [phone] 07/17/2022 Appointment Laboratory Medicine Angélica Granger P.A.-C. [address] [place] [phone] 07/31/2022 Appointment Laboratory Medicine Angélica Granger P.A.-C. [address] [place] [phone] 08/14/2022 Appointment Laboratory Medicine Angélica Granger P.A.-C. [address] [place] [phone] 08/28/2022 Appointment Laboratory Medicine Angélica Granger P.A.-C. [address] [place] [phone] documented as of this encounter Procedures Procedure Name Priority Date/Time Associated Diagnosis Comme nts TACROLIMUS LEVEL, B Routine 08/22/2021 9:24 Transplant L iver (HCC) Results for this AM DIGITAL PROJECT COORDINATOR Medication Therapy procedure are in Engine Repairer Production Not the results Anticoagulant section. Colitis Cytomegalovirus (HCC) CBC WITHOUT Routine 08/22/2021 9:24 Transplant Liver (HCC) Results for this DIFFERENTIAL, B AM DIGITAL PROJECT COORDINATOR Medication Therapy proced ure are in Detention Not the results Anticoagulant section. Colitis Cytomegalovirus (HCC) GLUCOSE, FASTING, S/P Routine 08/22/2021 9:24 Transplant Liver (HCC) Results for this AM DIGITAL PROJECT COORDINATOR Medication Therapy procedure are in Detention Not the results Anticoagulant section. Colitis Cytomegalovirus (HCC) CMV DNA DETECT/QUANT, Routine 08/22/2021 9:23 Transplant Liver (HCC) Results for this P AM DIGITAL PROJECT COORDINATOR Medication Therapy procedure are in Engine Repairer Production Not the results Anticoagulant section. Colitis Cytomegalovirus (HCC) COMPREHENSIVE Routine 08/22/2021 9:23 Transplant Liver (HCC) Results for this METABOLIC PANEL, S/P AM DIGITAL PROJECT COORDINATOR Medication Therapy p rocedure are in Detention Not the results Anticoagulant section. Colitis Cytomegalovirus (HCC) documented in this encounter Results (ABNORMAL) Tacrolimus, B (08/22/2021 9:24 AM DIGITAL PROJECT COORDINATOR) athologist Signature Tacrolimus, B 1.8 (L) 5.0-15.0 08/23/2021 SDSC (Trough) 12:12 PM DIGITAL PROJECT COORDINATOR ng/mL Comment: ----ADDITIONAL INFORMATION---- Target steady-state trough concentration s vary depending on the type of transplant, concomitant immunosuppressio n, clinical/institutional protocols, and time post-transplant. Results should be interpreted in conjunction with this clinical information and any physic al signs/symptoms of rejection/toxicity. Testing performed by Liquid Chromatograp hy-Tandem Mass Spectrometry (LC-MS/MS). This test was developed and its performa nce characteristics determined by [facility] in a manner consistent with CLIA requirements. This test has not been cleared or approved by the U.S. Mer d and Drug Administration. Specimen Anatomical Collection Method Collection Time Receive d Time (Source) Location / / Volume Laterality Blood (Blood, 08/22/2021 9:24 AM 08/24/19 7:22 Venous) DIGITAL PROJECT COORDINATOR AM DIGITAL PROJECT COORDINATOR Trung Plasencia P.A.-C., M.S. LAB BLOOD NON ADD-ON Performing Organization Address City/State/ZIP Code Phon e Number [facility] [address] [place], [place] [address] [facility] CENTER [facility] [place] [address] Laboratory Medicine and Pathology [address] [place] (ABNORMAL) Glucose, Fasting (08/22/2021 9:24 AM DIGITAL PROJECT COORDINATOR) athologist Signature Glucose, P 185 (H) 70 - 100 08/22/2021 [facility] mg/dL 10:18 AM DIGITAL PROJECT COORDINATOR Last Intake 1 hr 08/22/2021 [facility] 9:45 AM DIGITAL PROJECT COORDINATOR Specimen Anatomical Collection Method Collection Time Receive d Time (Source) Location / / Volume Laterality Blood (Blood, 08/22/2021 9:24 AM 08/23/19 9:45 Venous) DIGITAL PROJECT COORDINATOR AM DIGITAL PROJECT COORDINATOR Trung Plasencia P.A.-C. M.S. LAB BLOOD NON ADD-ON Performing Organization Address [facility] Phon e Number [address] [address] [place] [address] [address] (ABNORMAL) CBC without Differential (08/22/2021 9:24 AM DIGITAL PROJECT COORDINATOR) [facility] [employer] Method Time Signature Hemoglobin 10.6 (L) 13.2 - 08/22/2021 [facility] 16.6 g/dL 11:51 AM DIGITAL PROJECT COORDINATOR Hematocrit 33.4 (L) 38.3 - 08/22/2021 [facility] 48.6 % 11:51 AM DIGITAL PROJECT COORDINATOR Erythrocytes 3.42 (L) 4.35 - 08/22/2021 [facility] 5.65 11:51 AM DIGITAL PROJECT COORDINATOR x10(12)/L MCV 97.7 78.2 - 08/22/2021 [facility] 97.9 fL 11:51 AM DIGITAL PROJECT COORDINATOR RBC Distrib Width 13.2 11.8 - 08/22/2021 [facility] 14.5 % 11:51 AM DIGITAL PROJECT COORDINATOR Platelet Count 272 135 - 317 08/22/2021 [facility] x10(9)/L 11:51 AM DIGITAL PROJECT COORDINATOR Leukocytes 4.8 3.4 - 9.6 08/22/2021 [facility] x10(9)/L 11:52 AM DIGITAL PROJECT COORDINATOR Specimen Anatomical Collection Method Collection Time Receive d Time (Source) Location / / Volume Laterality Blood (Blood, 08/22/2021 9:24 AM 08/23/19 9:45 Venous) DIGITAL PROJECT COORDINATOR AM DIGITAL PROJECT COORDINATOR Trung Plasencia P.A.-C., M.S. LAB BLOOD ADD-ON Performing Organization Address City/[facility]/ZIP Code Phon e Number [address] [address] [place] [address] System [address] CMV DNA Detect / Quant, Plasma (08/22/2021 9:23 AM DIGITAL PROJECT COORDINATOR) Patholo gist Method Time Signature CMV DNA Undetected Undetected 08/23/2021 [facility] Detect/Quant, IU/mL 5:30 PM DIGITAL PROJECT COORDINATOR P Comment: Result in log IU/mL is Undetected. ----ADDITIONAL INFORMATION---- The quantification range of this assay i s 35 to 10,000,000 IU/mL (1.54 log to 7.00 log IU/mL). Testing was performed u sing the tika CMV test ([employer] with the tika [id number] System. Specimen Anatomical Collection Method Collection Time Receive d Time (Source) Location / / Volume Laterality Blood (Blood, 08/22/2021 9:23 AM 08/24/19 7:14 Venous) DIGITAL PROJECT COORDINATOR AM DIGITAL PROJECT COORDINATOR Trung Plasencia P.A.-C. M.S. LAB MICROBIOLOGY - BLOOD O RDERABLES Performing Organization Address City/State/ZIP Code Phon e Number [facility] [address] [place] [address] SUPPORT CENTER [facility] [place] [address] Laboratory Medicine and Pathology [address] [place] (ABNORMAL) Comprehensive Metabolic Panel (08/22/2021 9:23 AM DIGITAL PROJECT COORDINATOR) Analysis Performed At Patho logist Time Signature Potassium, P 3.9 3.6 - 5.2 08/22/2021 [facility] mmol/L 10:22 AM DIGITAL PROJECT COORDINATOR Sodium, P 131 (L) 135 - 145 08/22/2021 [facility] mmol/L 10:22 AM DIGITAL PROJECT COORDINATOR Chloride, P 96 (L) 98 - 107 08/22/2021 [facility] mmol/L 10:22 AM DIGITAL PROJECT COORDINATOR Bicarbonate, P 22 22 - 29 08/22/2021 [facility] mmol/L 10:22 AM DIGITAL PROJECT COORDINATOR Anion Gap, P 13 7 - 15 08/22/2021 [facility] 10:22 AM DIGITAL PROJECT COORDINATOR BUN (Blood Urea 40 (H) 8 - 24 08/22/2021 [facility] Nitrogen), P mg/dL 10:22 AM DIGITAL PROJECT COORDINATOR Creatinine 3.71 (H) 0.74 - 08/22/2021 [facility] 1.35 mg/dL 10:22 AM DIGITAL PROJECT COORDINATOR eGFR-Black/Afri 18 (L) >=60 08/22/2021 [facility] can Finnish mL/min/BSA 10:22 AM DIGITAL PROJECT COORDINATOR Comment: ----ADDITIONAL INFORMATION---- Estimated GFR calculated using the 2009 CKD_EPI creatinine equation. eGFR Non-Black/ 16 (L) >=60 mL/min/BSA 08/22/2021 10:22 AM DIGITAL PROJECT COORDINATOR [facility] [place] Comment: ----ADDITIONAL INFORMATION---- Estimated GFR calculated using the 2009 CKD_EPI creatinine equation. Calcium, Total, P 9.0 8.8 - 10.2 mg/dL 08/22/2021 10:2 2 AM DIGITAL PROJECT COORDINATOR [facility] Glucose, P CANCELED mg/dL 08/22/2021 9:45 AM DIGITAL PROJECT COORDINATOR [facility] Comment: Duplicate test request. Result canceled by the ancillary. Protein, Total, P 6.7 6.3 - 7.9 g/dL 08/22/2021 10:22 AM DIGITAL PROJECT COORDINATOR [facility] Albumin, P 4.1 3.5 - 5.0 g/dL 08/22/2021 10:22 AM DIGITAL PROJECT COORDINATOR [facility] Aspartate Aminotransferase (AST), 25 8 - 48 U/L 08/22 10:22 AM DIGITAL PROJECT COORDINATOR [facility] P Alkaline Phosphatase, P 121 40 - 129 U/L 08/22/2021 10 :22 AM DIGITAL PROJECT COORDINATOR [facility] Alanine Aminotransferase (ALT), P 20 7 - 55 U/L 08/22 10:22 AM DIGITAL PROJECT COORDINATOR [facility] Bilirubin, Total, P 0.2 <=1.2 mg/dL 08/22/2021 10:22 A M DIGITAL PROJECT COORDINATOR [facility] Specimen Anatomical Collection Method Collection Time Receive d Time (Source) Location / / Volume Laterality Blood (Blood, 08/22/2021 9:23 AM 08/23/19 9:45 Venous) DIGITAL PROJECT COORDINATOR AM DIGITAL PROJECT COORDINATOR Trung Plasencia P.A.-C., M.S. LAB BLOOD ADD-ON Performing Organization Address City/State/ZIP Code Phon e Number [facility]- [address] [place] [address] [place] [address] System in [place] [address] [address] documented in this encounter Visit Diagnoses Diagnosis Transplant Liver (HCC) Medication Therapy Detention Not Anticoa gulant Colitis Cytomegalovirus (HCC) documented in this encounter Additional Health Concerns Assessment Noted Time PHQ-9 Depression Total Score: 4 11/28/2020 10:17 AM CD T documented as of this encounter Care Teams Mold Hoister Relationship Specialty Start Date End Date Elsewhere, Pcp PCP - General Family Medicine 07/29/17 [facility] - Laboratory Medicine 04/12/20 [place] [address] documented as of this encounter
--- OUTSIDE RECORDS SUMMARY | 2022-04-13 12:06 | XMS_ITS | Encounter Summary ---
:[address] [facility] Address [address] [place] [address] Care Team Providers Name Role Phone Elsewhere, Pcp Primary Care Provider Unavailable Encounter Details Date Type Department Care Team Description 08/14/2021 Lab Department of Infusion Trung Plasencia Tr ansplant Liver (HCC) (Primary Dx); Therapy in [place], P.A.Marie., M .S. 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 [address] [place] [phone] 04/25/2022 Office Visit Otorhinolaryngology Dex Matta, GREENHOUSE STAFF, C.N.P., M.S.N. [address] [place] [phone] 05/08/2022 Appointment Laboratory Medicine Angélica Granger, P.A.-C. [address] [place] [phone] 05/08/2022 Clinical Admitting/Central Communication Scheduling 05/10/2022 Appointment Radiology Jeremie Rose M.D. [address] [place] [phone] 05/10/2022 Comprehensive Visit Orthopedic Surgery Warner Graves M.D. [address] [place] [phone] 05/22/2022 Appointment Laboratory Medicine Angélica Granger P.A.-C. [address] [place] [phone] 06/05/2022 Appointment Laboratory Medicine Angélica Granger P.A.-C. [address] [place] [phone] 06/19/2022 Appointment Laboratory Medicine Angélica Granger P.A.-C. [address] [place] [phone] 07/03/2022 Appointment Laboratory Medicine Angélica Granger P.A.-C. [address] [place] [phone] 07/17/2022 Appointment Laboratory Medicine Angélica Granger P.A.-C. [address] [place] [phone] 07/31/2022 Appointment Laboratory Medicine Angélica Granger P.A.-C. [address] [place] [phone] 08/14/2022 Appointment Laboratory Medicine Angélica Granger P.A.-C. [address] [place] [phone] 08/28/2022 Appointment Laboratory Medicine Angélica Granger P.A.-C. [address] [place] [phone] documented as of this encounter Procedures Procedure Name Priority Date/Time Associated Diagnosis Comme nts GLUCOSE, FASTING, S/P Routine 08/14/2021 8:21 Transplant Liver (HCC) Results for this AM BUREAU DIRECTOR Medication Therapy procedure are in Long-Term Not the results Anticoagulant section. Colitis Cytomegalovirus (HCC) CMV DNA DETECT/QUANT, Routine 08/14/2021 8:20 Transplant Liver (HCC) Results for this P AM BUREAU DIRECTOR Medication Therapy procedure are in Long-Term Not the results Anticoagulant section. Colitis Cytomegalovirus (HCC) TACROLIMUS LEVEL, B Routine 08/14/2021 8:20 Transplant L iver (HCC) Results for this AM BUREAU DIRECTOR Medication Therapy procedure are in Adjunct Sociology Professor Not the results Anticoagulant section. Colitis Cytomegalovirus (HCC) CBC WITHOUT Routine 08/14/2021 8:20 Transplant Liver (HCC) Results for this DIFFERENTIAL, B AM BUREAU DIRECTOR Medication Therapy proced ure are in Adjunct Sociology Professor Not the results Anticoagulant section. Colitis Cytomegalovirus (HCC) COMPREHENSIVE Routine 08/14/2021 8:20 Transplant Liver (HCC) Results for this METABOLIC PANEL, S/P AM BUREAU DIRECTOR Medication Therapy p rocedure are in Long-Term Not the results Anticoagulant section. Colitis Cytomegalovirus (HCC) documented in this encounter Results (ABNORMAL) Glucose, Fasting (08/14/2021 8:21 AM BUREAU DIRECTOR) athologist Signature Glucose, P 196 (H) 70 - 100 08/14/2021 DTL mg/dL 9:34 AM BUREAU DIRECTOR Last Intake 1 hr 08/14/2021 DTL 8:57 AM BUREAU DIRECTOR Specimen Anatomical Collection Method Collection Time Receive d Time (Source) Location / / Volume Laterality Blood (Blood, 08/14/2021 8:21 AM 08/14/19 8:57 Venous) BUREAU DIRECTOR AM BUREAU DIRECTOR Trung Plasencia P.A.-C., M.S. LAB BLOOD NON ADD-ON Performing Organization Address City/State/ZIP Code Phon e Number [facility] - [address] [place], [place] [address] [facility] [place] [address] [facility] [address] (ABNORMAL) Tacrolimus, B (08/14/2021 8:20 AM BUREAU DIRECTOR) athologist Signature Tacrolimus, B 4.0 (L) 5.0-15.0 08/14/2021 SDSC (Trough) 12:27 PM BUREAU DIRECTOR ng/mL Comment: ----ADDITIONAL INFORMATION---- Target steady-state trough [...] Location / / Volume Laterality Blood (Blood, 08/14/2021 8:20 AM 08/14/19 9:44 Venous) BUREAU DIRECTOR AM BUREAU DIRECTOR Trung Plasencia P.A.-C. MDemetriusSDemetrius LAB BLOOD NON ADD-ON Performing Organization Address [facility] Phon e Number [facility] [address] [place] [address] [place] [address] Laboratory Medicine and Pathology [address] [place] [address] Dr. MURILLO CMV DNA Detect / Quant, Plasma (08/14/2021 8:20 AM BUREAU DIRECTOR) [facility] Method Time Signature CMV DNA Undetected Undetected 08/14/2021 [facility] Detect/Quant, IU/mL 9:53 PM BUREAU DIRECTOR P Comment: Result in log IU/mL is Undetected. ----ADDITIONAL INFORMATION---- The quantification range of this assay i s 35 to 10,000,000 IU/mL (1.54 log to 7.00 log IU/mL). Testing was performed u sing the tika CMV test ([employer] with the tika 6800 System. Specimen Anatomical Collection Method Collection Time Receive d Time (Source) Location / / Volume Laterality Blood (Blood, 08/14/2021 8:20 AM 08/14/19 Venous) BUREAU DIRECTOR 11:07 AM BUREAU DIRECTOR Trung Plasencia P.A.-C. M.SDemetrius LAB MICROBIOLOGY - BLOOD O RDERABLES Performing Organization Address [facility] Phon e Number [facility] [address] [place], [place] [address] [facility] [place] [address] Laboratory Medicine and Pathology [address] [place] [address] Dr. MURILLO (ABNORMAL) Comprehensive Metabolic Panel (08/14/2021 8:20 AM BUREAU DIRECTOR) [facility] Time Signature Potassium, S 3.9 3.6 - 5.2 08/14/2021 DTL mmol/L 9:27 AM BUREAU DIRECTOR Sodium, S 130 (L) 135 - 145 08/14/2021 DTL mmol/L 9:27 AM BUREAU DIRECTOR Chloride, S 95 (L) 98 - 107 08/14/2021 DTL mmol/L 9:27 AM BUREAU DIRECTOR Bicarbonate, S 22 - 29 08/14/2021 DTL mmol/L 9:27 AM BUREAU DIRECTOR Anion Gap 13 7 - 15 08/14/2021 DTL 9:27 AM BUREAU DIRECTOR BUN (Blood Urea 27 (H) 8 - 24 08/14/2021 DTL Nitrogen), S mg/dL 9:27 AM BUREAU DIRECTOR Creatinine 3.05 (H) 0.74 - 08/14/2021 DTL 1.35 mg/dL 9:27 AM BUREAU DIRECTOR eGFR-Non 20 (L) >=60 08/14/2021 DTL Black/ mL/min/BSA 9:27 AM BUREAU DIRECTOR Cameroonian Comment: ----ADDITIONAL INFORMATION---- Estimated GFR calculated using the 2009 CKD_EPI creatinine equation. eGFR-Black/ 23 (L) >=60 mL/min/BSA 2021 9:27 AM BUREAU DIRECTOR DTL Comment: ----ADDITIONAL INFORMATION---- Estimated GFR calculated using the 2009 CKD_EPI creatinine equation. Calcium, Total, S 8.6 (L) 8.8 - 10.2 mg/dL 08/14/2021 9:27 AM BUREAU DIRECTOR DTL Glucose, S CANCELED mg/dL 08/14/2021 9:04 AM BUREAU DIRECTOR DTL Comment: Duplicate test request. Result canceled by the ancillary. Protein, Total, S 6.1 (L) 6.3 - 7.9 g/dL 08/14/2021 9:27 A M BUREAU DIRECTOR DTL Albumin, S 3.8 3.5 - 5.0 g/dL 08/14/2021 9:27 AM BUREAU DIRECTOR D TL Aspartate Aminotransferase 17 8 - 48 U/L 08/14/2021 9 :27 AM BUREAU DIRECTOR DTL (AST), S Alkaline Phosphatase, S 119 40 - 129 U/L 08/14/2021 9: 27 AM BUREAU DIRECTOR DTL Alanine Aminotransferase (ALT), 14 7 - 55 U/L 022 9:27 AM BUREAU DIRECTOR DTL S Bilirubin, Total, S 0.4 <=1.2 mg/dL 08/14/2021 9:27 AM BUREAU DIRECTOR DTL Specimen Anatomical Collection Method Collection Time Receive d Time (Source) Location / / Volume Laterality Blood (Blood, 08/14/2021 8:20 AM 08/14/19 9:04 Venous) BUREAU DIRECTOR AM BUREAU DIRECTOR Trung Plasencia P.A.-C. M.S. LAB BLOOD ADD-ON Performing Organization Address City/[facility] Phon e Number [facility] - [address] [place], [place] [address] [facility] [place] [address] [facility] 200 [facility] (ABNORMAL) CBC without Differential (08/14/2021 8:20 AM BUREAU DIRECTOR) [facility] gist Method Time Signature Hemoglobin 9.6 (L) 13.2 - 08/14/2021 DTL 16.6 g/dL 8:59 AM BUREAU DIRECTOR Hematocrit 30.3 (L) 38.3 - 08/14/2021 DTL 48.6 % 8:59 AM BUREAU DIRECTOR Erythrocytes 3.10 (L) 4.35 - 08/14/2021 DTL 5.65 8:59 AM BUREAU DIRECTOR x10(12)/L MCV 97.7 78.2 - 08/14/2021 DTL 97.9 fL 8:59 AM BUREAU DIRECTOR RBC Distrib Width 14.5 11.8 - 08/14/2021 DTL 14.5 % 8:59 AM BUREAU DIRECTOR Platelet Count 282 135 - 317 08/14/2021 DTL x10(9)/L 8:59 AM BUREAU DIRECTOR Leukocytes 7.4 3.4 - 9.6 08/14/2021 DTL x10(9)/L 8:59 AM BUREAU DIRECTOR Specimen Anatomical Collection Method Collection Time Receive d Time (Source) Location / / Volume Laterality Blood (Blood, 08/14/2021 8:20 AM 08/14/19 8:41 Venous) BUREAU DIRECTOR AM BUREAU DIRECTOR Trung Plasencia P.A.-C., M.S. LAB BLOOD ADD-ON Performing Organization Address City/[facility] Phon e Number [facility] - [address] [place], [place] [address] [facility] [place] [address] [facility] [address] documented in this encounter Visit Diagnoses Diagnosis Transplant Liver (HCC) - Primary Medication Therapy Adjunct Sociology Professor Not Anticoa gulant Colitis Cytomegalovirus (HCC) Anemia documented in this encounter Administered Medications Inactive Administered Medications - up to 3 most recent administrations Medication Order MAR Action Action Date Dose Rate Site sodium chloride 0.9 % injection Given 08/14/2021 8:21 AM BUREAU DIRECTOR 30 mL 10-30 mL 10-30 mL, intra-catheter, As needed, line care, Starting on Fri08/14/21 at 0821, When no infusion to maintain patency. Flush every 7 days to each lumen. documented in this encounter Additional Health Concerns Assessment Noted Time PHQ-9 Depression Total Score: 4 11/28/2020 10:17 AM CD T documented as of this encounter Care Teams Wind Turbine Service Technician Relationship Specialty Start Date End Date Elsewhere, Pcp PCP - General Family Medicine 07/29/17 [facility] - Laboratory Medicine 04/12/[address] [address] documented as of this encounter
--- OUTSIDE RECORDS SUMMARY | 2022-04-13 12:06 | XMS_ITS | Encounter Summary ---
:1955 Author Organization [facility] Address [address] [place] [address] Care Team Providers Name Role Phone Elsewhere, Pcp Primary Care Provider Unavailable Encounter Details Date Type Department Care Team Description 08/10/2021 Orders Only Division of Nephrology and Elissa Wilcox A PRN, Hypertension, Alevism C.N.P. 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 [address] [place] [phone] 04/25/2022 Office Visit Otorhinolaryngology Dex Matta APRN, C.N.P., M.S.N. [address] [place] [phone] 05/08/2022 Appointment Laboratory Medicine Angélica Granger P.A.-C. [address] [place] [phone] 05/08/2022 Clinical Admitting/Central Communication Scheduling 05/10/2022 Appointment Radiology Jeremie Rose M.D. [address] [place] [phone] 05/10/2022 Comprehensive Visit Orthopedic Surgery Warner Graves M.D. [address] [place] [phone] 05/22/2022 Appointment Laboratory Medicine Angélica Granger P.A.-C. [address] [place] [phone] 06/05/2022 Appointment Laboratory Medicine Angélica Granger P.A.-C. [address] [place] [phone] 06/19/2022 Appointment Laboratory Medicine Angélica Granger P.A.-C. [address] [place] [phone] 07/03/2022 Appointment Laboratory Medicine Angélica Granger P.A.-C. [address] [place] [phone] 07/17/2022 Appointment Laboratory Medicine Angélica Granger P.A.-C. [address] [place] [phone] 07/31/2022 Appointment Laboratory Medicine Angélica Granger P.A.-C. [address] [place] [phone] 08/14/2022 Appointment Laboratory Medicine Angélica Granger P.A.-C. [address] [place] [phone] 08/28/2022 Appointment Laboratory Medicine Angélica Granger P.A.-C. [address] [place] [phone] documented as of this encounter Visit Diagnoses Not on filedocumented in this encounter Additional Health Concerns Assessment Noted Time PHQ-9 Depression Total Score: 4 11/28/2020 10:17 AM CD T documented as of this encounter Care Teams Patent Engineer Relationship Specialty Start Date End Date Elsewhere, Pcp PCP - General Family Medicine 07/29/17 [facility] - Laboratory Medicine 04/12/[address] [address] documented as of this encounter
--- OUTSIDE RECORDS SUMMARY | 2022-04-13 12:06 | XMS_ITS | Encounter Summary ---
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 - 08/16/2021 10:10 AM CST Added 125mg Vancomycin BID to regimen for 21 days per ID recommendations. Will message patient with update. Rachelle Starr M.D. ER Telephone Encounter - Rachelle Starr M.D. - 08/15/2021 7:43 PM CST Spoke with Mr. Singh on the phone regarding the discussed antibiotic plan from Infectious Disease (Augmentin and Bactrim for 2 weeks). At that time we will see him in clinic (on 08/28) and if he still has purulent drainage we can culture it at that time. He wanted to confirm that he should take Augmentin and not Vanco (in the past Augmentin has given him CDiff). He is open to taking Augmentin as long as ID is aware. I followed up with ID for a final confirmation on the antibiotic plan and I will message Mr. Singh on the portal once I hear back. He said he had a fever yesterday and is going to check his temperature again today. He did a home COVID test which was negative. I encouraged him to reach out to his PCP to get a viral panel test per ID's recommendation. He is comfortable with the plan. Rachelle Starr M.D. ER Telephone Encounter - Rachelle Starr M.D. - 08/14/2021 5:27 PM CST Spoke with Mr. Singh on the phone this evening. He is s/p bilateral FESS, septoplasty and inferiorturb reduction with Dr. Pena on 07/26/21. He has completed his post operative 2 wk course of Bactrim prescribed by Dr. Pena approximately 1 week ago. During the antibiotic therapy he denies significant headache/fever/thick nasal mucous. After completing this antibiotic course, he started having recurrence of headaches, fever, and thickened/increased mucous. This started 3 days ago and has persisted. He is wondering if antibiotics and/or prednisone would be indicated. Also asking if a swab or sputum sample would be helpful I explained that I think the Bactrim did not completely resolve his ongoing sinus infection and a different type of antibiotic may be indicated (he also had a course of Bactrim prior to surgery which did not adequately resolve the infection). I would like to touch base with Infectious Disease Dr. Plasencia to determine next best steps for antibiotic treatment regimen. In addition I will discuss with Dr. Pena if an oral prednisone taper would be helpful. We will jamul back with the patient once the plan is determined. Rachelle Starr M.D. ER Telephone Encounter - Elizabeth Barrera - 08/14/2021 8:01 AM CST Mr. Singh calls to state that he had surgery on July 26 and all has been good until a couple ofdays ago. He has started with the mucus, headaches and fever again. He is wondering if he should do a spit test. He is actually here at the clinic today for appointments and thought this would be a good time to do it. Please give the patient a call to discuss. Telephone - [phone]. Thanks. ER documented in this encounter Plan of Treatment Upcoming Encounters Date Type Specialty Care Team Description 04/24/2022 Appointment Laboratory Medicine Angélica Granger P.A.-C. [address] [place] [phone] 04/25/2022 Office Visit Otorhinolaryngology Dex Matta APRN CDemetriusNDemetriusP., M.S.N. [address] [place] [phone] 05/08/2022 Appointment Laboratory Medicine Angélica Granger P.A.-C. [address] [place] [phone] 05/08/2022 Clinical Admitting/Central Communication Scheduling 05/10/2022 Appointment Radiology Jeremie Rose M.D. [address] [place] [phone] 05/10/2022 Comprehensive Visit Orthopedic Surgery Warner Graves M.D. [address] [place] [phone] 05/22/2022 Appointment Laboratory Medicine Angélica Granger P.A.-C. [address] [place] [phone] 06/05/2022 Appointment Laboratory Medicine Angélica Granger P.A.-C. [address] [place] [phone] 06/19/2022 Appointment Laboratory Medicine Angélica Granger P.A.-C. [address] [place] [phone] 07/03/2022 Appointment Laboratory Medicine Angélica Granger P.A.-C. [address] [place] [phone] 07/17/2022 Appointment Laboratory Medicine Angélica Granger P.A.-C. [address] [place] [phone] 07/31/2022 Appointment Laboratory Medicine Angélica Granger P.A.-C. [address] [place] [phone] 08/14/2022 Appointment Laboratory Medicine Angélica Granger P.A.-C. [address] [place] [phone] 08/28/2022 Appointment Laboratory Medicine Angélica Granger P.A.-C. [address] [place] [phone] documented as of this encounter Visit Diagnoses Not on filedocumented in this encounter Additional Health Concerns Assessment Noted Time PHQ-9 Depression Total Score: 4 11/28/2020 10:17 AM CD T documented as of this encounter Care Teams Foxer Relationship Specialty Start Date End Date Elsewhere, Pcp PCP - General Family Medicine 07/29/17 [facility] - Laboratory Medicine 04/12/[address] [address] documented as of this encounter
--- OUTSIDE RECORDS SUMMARY | 2022-04-13 12:06 | XMS_ITS | Encounter Summary ---
:1955 Author Organization [facility] Address [address] [place] [address] Care Team Providers Name Role Phone Elsewhere, Pcp Primary Care Provider Unavailable Reason for Visit Reason Comments External Lab Entry 08/03/2021 Encounter Details Date Type Department Care Team Description 08/09/2021 Clinical Curt Garces Transplant, Cosmetic Sales Assistant al Lab Entry Communication Center for Coordinator, (08/03/2021) Transplantation and R.N. 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 [address] [place] [phone] 05/08/2022 Appointment Laboratory Medicine Angélica Granger P.ADemetrius-C. [address] [place] [phone] 05/08/2022 Clinical Admitting/Central Communication Scheduling 05/10/2022 Appointment Radiology Jeremie Rose M.D. [address] [place] [phone] 05/10/2022 Comprehensive Visit Orthopedic Surgery Warner Graves M.D. [address] [place] [phone] 05/22/2022 Appointment Laboratory Medicine Angélica Granger P.A.-CDemetrius [address] [place] [phone] 06/05/2022 Appointment Laboratory Medicine Angélica Granger P.A.-C. [address] [place] [phone] 06/19/2022 Appointment Laboratory Medicine Angélica Granger P.A.-C. [address] [place] [phone] 07/03/2022 Appointment Laboratory Medicine Angélica Granger P.A.-C. [address] [place] [phone] 07/17/2022 Appointment Laboratory Medicine Angélica Granger P.A.-C. [address] [place] [phone] 07/31/2022 Appointment Laboratory Medicine Angélica Granger P.A.-C. [address] [place] [phone] 08/14/2022 Appointment Laboratory Medicine Angélica Granger P.A.-C. [address] [place] [phone] 08/28/2022 Appointment Laboratory Medicine Angélica Granger P.A.-C. [address] [place] [phone] documented as of this encounter Procedures Procedure Name Priority Date/Time Associated Diagnosis Comme nts EXTP Routine 08/03/2021 9:10 AM Results f or this TRANSPLANT/LIVER - DOWEL SETTING MACHINE OPERATOR procedure are in BLOOD, [facility]. documented in this encounter Results Transplant/Liver - Blood, External Lab Results (08/03/2021 9:10 AM DOWEL SETTING MACHINE OPERATOR) P athologist Signature EXT CMV DNA <200 Quant, P Specimen (Source) Anatomical Collection Method Collection Time Re ceived Time Location / / Volume Laterality Blood 08/03/2021 9:10 AM DOWEL SETTING MACHINE OPERATOR Narrative This result has an attachment that is no t available. Historical Provider LAB BLOOD NON ADD-ON documented in this encounter Visit Diagnoses Not on filedocumented in this encounter Additional Health Concerns Assessment Noted Time PHQ-9 Depression Total Score: 4 11/28/2020 10:17 AM CD T documented as of this encounter Care Teams Academic Dean Relationship Specialty Start Date End Date Elsewhere, Pcp PCP - General Family Medicine 07/29/17 [facility] - Laboratory Medicine 04/12/[address] [address] documented as of this encounter
--- OUTSIDE RECORDS SUMMARY | 2022-04-13 12:06 | XMS_ITS | Encounter Summary ---
:1955 Author Organization [facility] Address [address] [place] [address] Care Team Providers Name Role Phone Elsewhere, Pcp Primary Care Provider Unavailable Reason for Visit Reason Comments Labs Only Encounter Details Date Type Department Care Team Description 08/15/2021 Clinical Communication [facility] Only [facility] for R, R.N. 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 - 08/15/2021 1:16 PM CST Please review labs below. 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 He recently underwent sinussurgery on 07/26/21 with ENT team for chronic rhinosinusitis and post nasal drip with recurrent aspiration. He follows with Padmini Barry CNP in Nephrology for stage 5 CKD, on hemodialysis. Current Medications & Recent Dose Changes: Tacrolimus 1 mg BID Mycophenolate 500 mg BID Prednisone 5 mg daily Labs: Recent Labs 08/14/21 0820 07/10/21 0928 06/12/21 0844 05/29/21 1009 05/25/21 0505 TACROLIMUS 4.0 L 6.2 1.5 L 1.6 L 2.1 L Recent Labs 08/14/21 0821 08/14/21 0820 07/20/21 0900 07/16/21 0816 07/10/21 0928 06/12/21 0844 05/29/21 1009 05/25/21 1235 05/25/21 0505 05/24/21 1040 05/24/21 1039 05/23/21 1137 05/23/2134 05/23/2134 HGB -- 9.6 L 10.1 L 10.4 L 10.1 L < > 7.6 L < > 6.5 L -- < > 7.4 L -- 6.7 L HCT -- 30.3 L 31.4 L 32.0 L 31.2 L < > 24.2 L < > 20.3 L -- < > 22.0 L 22.4 L --22.2 L WBC -- 7.4 5.2 5.6 4.7 < > 3.2 L < > 3.0 L -- < > 3.5 -- 3.4 NEUTROPHILS -- -- 3.5 4.10 3.61 -- 2.37 < > 2.15 -- < > 2.85 < > -- PLT -- 282 306 266 209 < > 209 < > 156 -- < > 175 -- 200 NA -- 130 L 135 -- 137 < > 129 L 129 L < > 129 L 128 L < > 129 L 125 L -- 128 L KPLASMA -- -- -- -- -- -- 4.2 4.2 -- -- -- -- 3.9 -- 4.1 KBLOOD -- -- -- -- -- -- -- -- -- 4.1 -- 3.7 -- -- KSERUM -- 3.9 3.7 -- 4.1 < > -- < > 4.1 -- < > -- -- -- MG -- -- -- -- -- -- -- -- 2.5 H -- -- -- -- -- GLUCOSE 196 H CANCELED 106 H -- CANCELED 118 H < > CANCELED CANCELED 112 H < > 117-- < > 139 -- 119 BUN -- 27 H 41 H -- 25 H < > 47 H 47 H < > 58 H -- < > 59 H -- 55 H CREATININE -- 3.05 H 3.79 H -- 2.75 H < > 3.95 H 3.95 H < > 4.72 H -- < > 4.31 H-- 4.25 H ALKPHOS -- 119 140 H -- 151 H < > 108 -- -- -- -- 107 -- -- AST -- 17 23 -- 29 < > 45 -- -- -- -- 24 -- -- ALT -- 14 21 -- 34 < > 40 -- -- -- -- 20 -- -- BILITOT -- 0.4 0.4 -- 0.4 < > 0.2 -- -- -- -- 0.3 -- -- BILIDIR -- -- -- -- -- -- -- -- -- -- -- <0.2 -- -- PT -- -- -- -- -- -- -- -- -- -- -- 11.7 -- -- INR -- -- -- -- -- -- -- -- -- -- -- 1.1 -- -- ALBUMIN -- 3.8 3.6 -- 3.9 < > 3.3 L 3.3 L < > -- -- -- 3.6 -- 3.6 < > = values in this interval not displayed. Serologies: Recent Labs 08/14/21 0820 08/03/21 0910 07/27/21 1025 07/20/21 0900 07/16/21 0816 07/10/21 0928 CMVQUANT Undetected <200 <200 positive <200 <35 A <35 A Immunosuppression Goal Range: 2 Current Lab Frequency: Weekly Please advise on any changes or recommendations. Thanks, Yolie Dubois R.N. *All labs are now found in [employer] - Lab - Flowsheets. For further review of labs, please review there or under Synopsis* NT ACQUISITION LEAD documented in this encounter Plan of Treatment Upcoming Encounters Date Type Specialty Care Team Description 04/24/2022 Appointment Laboratory Medicine Angélica Granger P.A.-C. [address] [place] [phone] 04/25/2022 Office Visit Otorhinolaryngology Dex Matta APRN, C.N.P., M.S.N. [address] [place] [phone] 05/08/2022 Appointment Laboratory Medicine Angélica Granger P.A.-C. [address] [place] [phone] 05/08/2022 Clinical Admitting/Central Communication Scheduling 05/10/2022 Appointment Radiology Jeremie Rose M.D. [address] [place] [phone] 05/10/2022 Comprehensive Visit Orthopedic Surgery Warner Graves M.D. [address] [place] [phone] 05/22/2022 Appointment Laboratory Medicine Angélica Granger P.A.-C. [address] [place] [phone] 06/05/2022 Appointment Laboratory Medicine Angélica Granger P.A.-C. [address] [place] [phone] 06/19/2022 Appointment Laboratory Medicine Angélica Granger P.A.-C. [address] [place] [phone] 07/03/2022 Appointment Laboratory Medicine Angélica Granger P.A.-C. [address] [place] [phone] 07/17/2022 Appointment Laboratory Medicine Angélica Granger P.A.-C. [address] [place] [phone] 07/31/2022 Appointment Laboratory Medicine Anéglica Granger P.A.-C. [address] [place] [address] 08/14/2022 Appointment Laboratory Medicine Angélica Granger P.A.-C. [address] [place] [phone] 08/28/2022 Appointment Laboratory Medicine Angélica Granger P.A.-C. [address] [place] [address] documented as of this encounter Visit Diagnoses Not on filedocumented in this encounter Additional Health Concerns Assessment Noted Time PHQ-9 Depression Total Score: 4 11/28/2020 10:17 AM CD T documented as of this encounter Care Teams Paint Stock Clerk Relationship Specialty Start Date End Date Elsewhere, Pcp PCP - General Family Medicine 07/29/17 [facility] - Laboratory Medicine 04/12/[address] [address] documented as of this encounter
--- OUTSIDE RECORDS SUMMARY | 2022-04-13 12:06 | XMS_ITS | Encounter Summary ---
:1955 Author Organization [facility] Address [address] [place] [address] Care Team Providers Name Role Phone Elsewhere, Pcp Primary Care Provider Unavailable Encounter Details Date Type Department Care Team Description 08/17/2021 Orders Only Division of Nephrology and Elissa Wilcox A PRN, Hypertension, Mandaen C.N.P. 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 [address] [place] [phone] 04/25/2022 Office Visit Otorhinolaryngology Dex Matta APRN, C.N.P., M.S.N. [address] [place] [phone] 05/08/2022 Appointment Laboratory Medicine Angélica Granger P.A.-C. [address] [place] [phone] 05/08/2022 Clinical Admitting/Central Communication Scheduling 05/10/2022 Appointment Radiology Jeremie Rose M.D. [address] [place] [phone] 05/10/2022 Comprehensive Visit Orthopedic Surgery Warner Graves M.D. [address] [place] [phone] 05/22/2022 Appointment Laboratory Medicine Angélica Granger P.A.-C. [address] [place] [phone] 06/05/2022 Appointment Laboratory Medicine Angélica Granger P.A.-C. [address] [place] [phone] 06/19/2022 Appointment Laboratory Medicine Angélica Granger P.A.-C. [address] [place] [phone] 07/03/2022 Appointment Laboratory Medicine Angélica Granger P.A.-C. [address] [place] [phone] 07/17/2022 Appointment Laboratory Medicine Angélica Granger P.A.-C. [address] [place] [phone] 07/31/2022 Appointment Laboratory Medicine Angélica Granger P.A.-C. [address] [place] [phone] 08/14/2022 Appointment Laboratory Medicine Angélica Grnager P.A.-C. [address] [place] [phone] 08/28/2022 Appointment Laboratory Medicine Angélica Granger P.A.-C. [address] [place] [phone] documented as of this encounter Visit Diagnoses Not on filedocumented in this encounter Additional Health Concerns Assessment Noted Time PHQ-9 Depression Total Score: 4 11/28/2020 10:17 AM CD T documented as of this encounter Care Teams Res Counselor Relationship Specialty Start Date End Date Elsewhere, Pcp PCP - General Family Medicine 07/29/17 [facility] - Laboratory Medicine 04/12/[address] [address] documented as of this encounter
--- OUTSIDE RECORDS SUMMARY | 2022-04-13 12:06 | XMS_ITS | Encounter Summary ---
:1955 Author Organization [facility] Address [address] [place] [address] Care Team Providers Name Role Phone Elsewhere, Pcp Primary Care Provider Unavailable Reason for Visit Reason Comments Med Refill Encounter Details Date Type Department Care Team Description 08/08/2021 Refill [facility] Dubois R.N. Med Refill Transplantation and Clinical 200 [facility] in [facility] [phone] [place] [address] [place] [address] Social History Tobacco Use Types Packs/Day [...] More than 4 times per year 12/15/2021 confucianist services? 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 [address] [place] [phone] 04/25/2022 Office Visit Otorhinolaryngology Dex Matta APRN, C.N.P., M.S.N. [address] [place] [phone] 05/08/2022 Appointment Laboratory Medicine Angélica Granger P.A.-CDemetrius [address] [place] [phone] 05/08/2022 Clinical Admitting/Central Communication Scheduling 05/10/2022 Appointment Radiology Jeremie Rose M.D. [address] [place] [phone] 05/10/2022 Comprehensive Visit Orthopedic Surgery Warner Graves M.D. [address] [place] [phone] 05/22/2022 Appointment Laboratory Medicine Angélica Granger P.A.-C. [address] [place] [phone] 06/05/2022 Appointment Laboratory Medicine Angélica Granger P.A.-C. [address] [place] [phone] 06/19/2022 Appointment Laboratory Medicine Angélica Granger P.A.-C. [address] [place] [phone] 07/03/2022 Appointment Laboratory Medicine Angélica Granger P.A.-C. [address] [place] [phone] 07/17/2022 Appointment Laboratory Medicine Angélica Granger P.A.-C. [address] [place] [phone] 07/31/2022 Appointment Laboratory Medicine Angélica Granger P.A.-C. [address] [place] [phone] 08/14/2022 Appointment Laboratory Medicine Angélica Granger P.A.-C. [address] [place] [phone] 08/28/2022 Appointment Laboratory Medicine Angélica Granger P.A.-C. 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
--- OUTSIDE RECORDS SUMMARY | 2022-04-13 12:07 | XMS_ITS | Encounter Summary ---
:1955 Author Organization [facility] Address [address] [place] [address] Care Team Providers Name Role Phone Elsewhere, Pcp Primary Care Provider Unavailable Encounter Details Date Type Department Care Team Description 07/30/2021 Orders Only Division of Nephrology and Chris Norwood Hypertension in [place], ., D.O. [place] [address] [facility] [address] [place] [phone] (Wo rk) Social History Tobacco Use Types [...] or relatives? How often do you attend anabaptism or More than 4 times per year 12/15/2021 mandaen services? 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 [address] [place] [phone] 04/25/2022 Office Visit Otorhinolaryngology Dex Matta APRN, C.N.P., M.S.N. [address] [place] [phone] 05/08/2022 Appointment Laboratory Medicine Angélica Granger P.A.-CDemetrius [address] [place] [phone] 05/08/2022 Clinical Admitting/Central Communication Scheduling 05/10/2022 Appointment Radiology Jeremie Rose M.D. [address] [place] [phone] 05/10/2022 Comprehensive Visit Orthopedic Surgery Warner Graves M.D. [address] [place] [phone] 05/22/2022 Appointment Laboratory Medicine Angélica Granger P.A.-C. [address] [place] [phone] 06/05/2022 Appointment Laboratory Medicine Angélica Granger P.A.-C. [address] [place] [phone] 06/19/2022 Appointment Laboratory Medicine Angélica Granger P.A.-C. [address] [place] [phone] 07/03/2022 Appointment Laboratory Medicine Angélica Granger P.A.-C. [address] [place] [phone] 07/17/2022 Appointment Laboratory Medicine Angélica Granger P.A.-C. [address] [place] [phone] 07/31/2022 Appointment Laboratory Medicine Angélica Granger P.A.-C. [address] [place] [phone] 08/14/2022 Appointment Laboratory Medicine Angélica Granger P.A.-C. [address] [place] [phone] 08/28/2022 Appointment Laboratory Medicine Angélica Granger P.A.-C. [address] [place] [phone] documented as of this encounter Visit Diagnoses Not on filedocumented in this encounter Additional Health Concerns Assessment Noted Time PHQ-9 Depression Total Score: 4 11/28/2020 10:17 AM CD T documented as of this encounter Care Teams Project Economist Relationship Specialty Start Date End Date Elsewhere, Pcp PCP - General Family Medicine 07/29/17 [facility] - Laboratory Medicine 04/12/[address] [address] documented as of this encounter
--- OUTSIDE RECORDS SUMMARY | 2022-04-13 12:07 | XMS_ITS | Encounter Summary ---
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 [address] [place] [phone] 04/25/2022 Office Visit Otorhinolaryngology Dex Matta APRN, C.N.P., M.S.N. [address] [place] [phone] 05/08/2022 Appointment Laboratory Medicine Angélica Granger P.A.-C. [address] [place] [phone] 05/08/2022 Clinical Admitting/Central Communication Scheduling 05/10/2022 Appointment Radiology Jeremie Rose M.D. [address] [place] [phone] 05/10/2022 Comprehensive Visit Orthopedic Surgery Warner Graves M.D. [address] [place] [phone] 05/22/2022 Appointment Laboratory Medicine Angélica Granger P.A.-C. [address] [place] [phone] 06/05/2022 Appointment Laboratory Medicine Angélica Granger P.A.-C. [address] [place] [phone] 06/19/2022 Appointment Laboratory Medicine Angélica Granger P.A.-C. [address] [place] [phone] 07/03/2022 Appointment Laboratory Medicine Angélica Granger P.A.-C. [address] [place] [phone] 07/17/2022 Appointment Laboratory Medicine Angélica Granger P.A.-C. [address] [place] [phone] 07/31/2022 Appointment Laboratory Medicine Angélica Granger P.A.-C. [address] [place] [phone] 08/14/2022 Appointment Laboratory Medicine Angélica Granger P.A.-C. [address] [place] [phone] 08/28/2022 Appointment Laboratory Medicine Angélica Granger P.A.-C. [address] [place] [phone] documented as of this encounter Procedures Procedure Name Priority Date/Time Associated Comments Diagnosis OTORHINOLARYNGOLOGY IMAGE Routine 07/31/2021 9:45 Results for this EXAM AM GRAPE CUTTER procedure are i n the results section. documented in this encounter Results NOSE-Otorhinolaryngology Image Exam (07/31/2021 9:45 AM GRAPE CUTTER) Specimen (Source) Anatomical Collection Method Collection Time Re ceived Time Location / / Volume Laterality 07/31/2021 9:42 AM GRAPE CUTTER Narrative IIMS - 07/31/2021 10:08 AM GRAPE CUTTER This order has been created and auto-finalized [...] documented as of this encounter Care Teams Stogie Packer Relationship Specialty Start Date End Date Elsewhere, Pcp PCP - General Family Medicine 07/29/17 [facility] - Laboratory Medicine 04/12/20 [place] [address] documented as of this encounter
--- OUTSIDE RECORDS SUMMARY | 2022-04-13 12:07 | XMS_ITS | Encounter Summary ---
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 [address] [place] [phone] 04/25/2022 Office Visit Otorhinolaryngology Dex Matta APRN, C.N.P., M.S.N. [address] [place] [phone] 05/08/2022 Appointment Laboratory Medicine Angélica Granger P.A.-C. [address] [place] [phone] 05/08/2022 Clinical Admitting/Central Communication Scheduling 05/10/2022 Appointment Radiology Jeremie Rose M.D. [address] [place] [phone] 05/10/2022 Comprehensive Visit Orthopedic Surgery Warner Graves M.D. [address] [place] [phone] 05/22/2022 Appointment Laboratory Medicine Angélica Granger P.A.-C. [address] [place] [phone] 06/05/2022 Appointment Laboratory Medicine Angélica Granger P.A.-C. [address] [place] [phone] 06/19/2022 Appointment Laboratory Medicine Angélica Granger P.A.-C. [address] [place] [phone] 07/03/2022 Appointment Laboratory Medicine Angélica Granger P.A.-C. [address] [place] [phone] 07/17/2022 Appointment Laboratory Medicine Angélica Granger P.A.-C. [address] [place] [phone] 07/31/2022 Appointment Laboratory Medicine Angélica Granger P.A.-C. [address] [place] [phone] 08/14/2022 Appointment Laboratory Medicine Angélica Granger P.A.-C. [address] [place] [phone] 08/28/2022 Appointment Laboratory Medicine Angélica Granger P.A.-C. [address] [place] [phone] documented as of this encounter Procedures Procedure Name Priority Date/Time Associated Comments Diagnosis OTORHINOLARYNGOLOGY IMAGE Routine 07/26/2021 7:30 Results for this EXAM AM JAVA JSF DEVELOPER procedure are i n the results section. documented in this encounter Results NOSE-Otorhinolaryngology Image Exam (07/26/2021 7:30 AM JAVA JSF DEVELOPER) Specimen (Source) Anatomical Location Collection Method / Collectio n Time Received Time / Laterality Volume Narrative IIMS - 07/26/2021 11:39 AM JAVA JSF DEVELOPER This order has been created and auto-finalized [...] documented as of this encounter Care Teams Shredding Machine Knife Changer Relationship Specialty Start Date End Date Elsewhere, Pcp PCP - General Family Medicine 07/29/17 [facility] - Laboratory Medicine 04/12/[address] [address] documented as of this encounter
--- OUTSIDE RECORDS SUMMARY | 2022-04-13 12:07 | XMS_ITS | Encounter Summary ---
:1955 Author Organization [facility] Address [address] [place] [address] Care Team Providers Name Role Phone Elsewhere, Pcp Primary Care Provider Unavailable Encounter Details Date Type Department Care Team Description 07/31/2021 Immunization Section of Preventive, Transportation and Occupational Medicine in [place], [place] [address] [place] [address] Social History Tobacco Use Types Packs/Day [...] More than 4 times per year 12/15/2021 methodist services? 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 [address] [place] [phone] 04/25/2022 Office Visit Otorhinolaryngology Dex Matta APRN, C.N.P., M.S.N. [address] [place] [phone] 05/08/2022 Appointment Laboratory Medicine Angélica Granger P.A.-CDemetrius [address] [place] [phone] 05/08/2022 Clinical Admitting/Central Communication Scheduling 05/10/2022 Appointment Radiology Jeremie Rose M.D. [address] [place] [phone] 05/10/2022 Comprehensive Visit Orthopedic Surgery Warner Graves M.D. [address] [place] [phone] 05/22/2022 Appointment Laboratory Medicine Angélica Granger P.A.-CDemetrius [address] [place] [phone] 06/05/2022 Appointment Laboratory Medicine Angélica Granger P.A.-CDemetrius [address] [place] [phone] 06/19/2022 Appointment Laboratory Medicine Angélica Granger P.A.-C. [address] [place] [phone] 07/03/2022 Appointment Laboratory Medicine Angélica Granger P.A.-C. [address] [place] [phone] 07/17/2022 Appointment Laboratory Medicine Angélica Granger P.A.-C. [address] [place] [phone] 07/31/2022 Appointment Laboratory Medicine Angélica Granger P.A.-C. [address] [place] [phone] 08/14/2022 Appointment Laboratory Medicine Angélica Granger P.A.-C. [address] [place] [phone] 08/28/2022 Appointment Laboratory Medicine Angéliac Granger P.A.-C. [address] [place] [phone] documented as of this encounter Visit Diagnoses Not on filedocumented in this encounter Additional Health Concerns Assessment Noted Time PHQ-9 Depression Total Score: 4 11/28/2020 10:17 AM CD T documented as of this encounter Care Teams Test Baker Relationship Specialty Start Date End Date Elsewhere, Pcp PCP - General Family Medicine 07/29/17 [facility] - Laboratory Medicine 04/12/[address] [address] documented as of this encounter
--- OUTSIDE RECORDS SUMMARY | 2022-04-13 12:07 | XMS_ITS | Encounter Summary ---
:1955 Author Organization [facility] Address [address] [place] [address] Care Team Providers Name Role Phone Elsewhere, Pcp Primary Care Provider Unavailable Reason for Visit Reason Comments External Lab Entry 07/27/2021 Encounter Details Date Type Department Care Team Description 08/01/2021 Clinical Curt Garces Transplant, Permit Coordinator al Lab Entry Communication Center for Coordinator, (07/27/2021) Transplantation and R.N. Clinical Regeneration in 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 [address] [place] [phone] 05/08/2022 Appointment Laboratory Medicine Angélica Granger P.ADemetrius-C. [address] [place] [phone] 05/08/2022 Clinical Admitting/Central Communication Scheduling 05/10/2022 Appointment Radiology Jeremie Rose M.D. [address] [place] [phone] 05/10/2022 Comprehensive Visit Orthopedic Surgery Warner Graves M.D. [address] [place] [phone] 05/22/2022 Appointment Laboratory Medicine Angélica Granger P.A.-CDemetrius [address] [place] [phone] 06/05/2022 Appointment Laboratory Medicine Angélica Granger P.A.-C. [address] [place] [phone] 06/19/2022 Appointment Laboratory Medicine Angélica Granger P.A.-C. [address] [place] [phone] 07/03/2022 Appointment Laboratory Medicine Angélica Granger P.A.-C. [address] [place] [phone] 07/17/2022 Appointment Laboratory Medicine Angélica Granger P.A.-C. [address] [place] [phone] 07/31/2022 Appointment Laboratory Medicine Angélica Granger P.A.-C. [address] [place] [phone] 08/14/2022 Appointment Laboratory Medicine Angélica Granger P.A.-C. [address] [place] [phone] 08/28/2022 Appointment Laboratory Medicine Angélica Granger P.A.-C. [address] [place] [phone] documented as of this encounter Procedures Procedure Name Priority Date/Time Associated Diagnosis Comme [facility] EXTP Routine 07/27/2021 10:25 AM Results for this TRANSPLANT/LIVER - DAY CARE ATTENDANT procedure are in BLOOD, [facility] documented in this encounter Results Transplant/Liver - Blood, External Lab Results (07/27/2021 10:25 AM DAY CARE ATTENDANT) P athologist Signature EXT CMV DNA <200 Quant, P Specimen (Source) Anatomical Collection Method Collection Time Re ceived Time Location / / Volume Laterality Blood 07/27/2021 10:25 AM DAY CARE ATTENDANT Narrative This result has an attachment that is no t available. Historical Provider LAB BLOOD NON ADD-ON documented in this encounter Visit Diagnoses Not on filedocumented in this encounter Additional Health Concerns Assessment Noted Time PHQ-9 Depression Total Score: 4 11/28/2020 10:17 AM CD T documented as of this encounter Care Teams Wrapping Checker Relationship Specialty Start Date End Date Elsewhere, Pcp PCP - General Family Medicine 07/29/[address] [facility] - Laboratory Medicine 04/12/20 [place] [phone] documented as of this encounter
--- OUTSIDE RECORDS SUMMARY | 2022-04-13 12:07 | XMS_ITS | Encounter Summary ---
:1955 Author Organization [facility] Address [address] [place] [address] Care Team Providers Name Role Phone Elsewhere, Pcp Primary Care Provider Unavailable Reason for Visit Auth/Cert Specialty Diagnoses / Procedures Referred By Contact Refer red To Contact Diagnoses Rhinosinusitis Chronic Rhinosinusitis Chronic [J32.8] Procedures AL NSL/SINS NDSC SPHN TISS RMVL AL ENDO NSL MAX ANTROST W RMV TIS AL ENDO NSL W FRNTL SINUS EXPLOR AL SEPTO/SUBM RESEC W/WO CART GRFT AL SUBMUC RSECT TURB PRTL/COMPLT AL STRTCTC COMP-ASSIST CRNL EXTRA ENDOSCOPIC SPHENOIDOTOMY WIT H TISSUE REMOVAL ETHMOIDECTOMY ENDOSCOPY ENDOSCOPIC MAXILLARY ANTROSTOMY WITH TISSUE REMOVAL SINUSOTOMY ENDOSCOPY FRONTAL SEPTOPLASTY REDUCTION TURBINATE INFERIOR EXTRADURAL COMPUTER NAVIGATION, proceed as indicated Referral ID Status Reason Start Date Expiration Date Visits Requ ested Visits Authorized [id number] 1 1 Encounter Details Date Type Department Care Team Description 07/26/2021 Anesthesia Event RST ROMB MAIN OR Addis Mcdaniel, [address] [facility] [place] [address] [address] [facility] [phone] [place] [phone] (Wo rk) Anesthesia Record Procedure Summary Procedure Name Responsible Anesthesia Start Anesthesia Stop Anesthesiologist Time Time ENDOSCOPIC Addis Mcdaniel M.D. 07/26/21 0743 07/26/21 1 153 SPHENOIDOTOMY WITH TISSUE REMOVAL. (Bilateral) Events Date Time Event Comment 07/26/2021 0743 An Start Machine/Equipmen t Checked Infection Precautions Foll owed Procedure/Site Verified NPO Sta tus Verified Supine Standard ASA Mon itors Applied 0759 An Induction 0800 An Intubation 0820 Proc Start 0835 Turnover to Proceduralist 1129 Proc Fin 1134 Airway Removal Criteria Met 1135 Extubation/Airway Removed 1138 Turnover to ANE Staff 1138 an stop data 1153 An End I completed my h andoff to the receiving staff during [facility] we 1. Identified the patient 2. Ident ified the responsible provider 3. Revi ewed the pertinent medical history 4. Discussed the surgical course 5. Review ed intra-op anesthesia management and i ssues during anesthesia 6. Set expectati ons for post-procedure period 7. Allowe d opportunity for questions and ac knowledgement of understanding. Name Total fentanyl injection 50 mcg/mL 150 mcg lidocaine 2% (mg) injection 100 mg propofol 10 mg/mL infusion 998.93 mg rocuronium 10 mg/mL injection 60 mg succinylcholine 20 mg/mL injection 20 mg phenylephrine 100 mcg/mL injection 400 mcg ondansetron 4 mg/2 mL injection 4 mg glycopyrrolate 0.2 mg/mL injection 0.4 mg neostigmine 1 mg/mL injection 4 mg ceFAZolin 4 g propofol 10 mg/mL injection 100 mg remifentaniL 20 mcg/mL in NaCl 0.9% 100 mL infusion (U LTIVA) 3.73 mg remifentanil 1 mg injection 100 mcg albuterol HFA inhaler 90 mcg/act 4 puff dexamethasone 4 mg/mL injection 8 mg dexmedeTOMIDine 80 mcg/20 mL (4 mcg/mL) in NaCl 0.9% v ial 80 mcg albumin human bottle 5% 250 mL dexmedeTOMIDine (PRECEDEX) injection 200 mcg/2 mL 24 m cg Lactated Ringers Free Drip 500 mL Agents No agents on file. Blood No blood administrations on file. Lines, Drains, and Airways Type Details Placement Removal Hemodialysis AV Access Placement Date: 07/24/21 1038 by 07/24/21; Placement Pina Blunt, Time: 1038 R.N. Hemodialysis Catheter Placement Date: 05/31/21 1517 by 10/16/21 1500 by 05/31/21; Placement Jason Mosher Ell en J, Time: 151; Catheter Arabella E, R.N. R.N. Length (cm): 23 cm; Removal Date: 10/16/21; Removal Time: 1500; Removal Reason: Completion of therapy PICC Single Lumen Placement Date: 06/14/21 1101 by 10/15/21 0800 by 06/14/21; Placement Maritza Guy Gershman, Melanie Time: 1101; Size: 5 Fr; R.N. R, R.N. Description: single lumen; Length: 29 cm; Orientation: Left; Location: Chest; Site Prep: Chlorhexidine (Preferred); Local Anesth: Subcutaneous lidocaine; Inserted By: Dr. Sheppard; Insertion Attempts: 1; Placement Verification: X-ray; Removal Date: 10/15/21; Removal Time: 0800; Removal Reason: No longer in place Wound 07/24/21; 1039; 07/24/21 1039 by 10/16/21 1622 b y Incision; Arm; Right, Pina Blunt Gershma n, Melanie Lower; 10/16/21; 1622 R.N. R, R.N. ETT Placement Date: 07/26/21 08 by 07/26/21 1138 b y 07/26/21; Placement Leisa Badillo, Leisa Badillo, Time: 0800 (created via CATIE GREENE APRN, CR NA procedure documentation); Mask Ventilation: Easy mask; Type: Standard ETT; Single Lumen Tube Size: 7.5 mm; Cuffed: Yes; Location: Oral; Insertion Attempts: 1; Placement Verification: Bilateral breath sounds, Positive ETCO2, Symmetrical chest wall movement; Removal Date: 07/26/21; Removal Time: 113 Arterial Line Placement Date: 07/26/21 08 by 07/26/21 1205 b y 07/26/21; Placemnt Time: Leisa Badillo Donahoe, Alyssa M, 826 (created via CATIE GREENE R.NDemetrius procedure documentation); Size: 20 G; Orientation: Left; Location: Radial; Site Prep: Chlorhexidine (Preferred); Technique: Anatomical landmarks; Insertion Attempts: 1; Securement: Securement dressing, Securement device; Removal Date: 07/26/21; Removal Time: 1205; Removal Reason: Per protocol Wound 07/26/21; 1104; N; 07/26/21 1104 by 10/15/21 080 0 by Incision; Nose; Cheryl Espino Gershman, Mela nie PosiSep/Dionicio Chavarria; R.N. R, R.N. 10/15/21; 0800 documented in this encounter Social History Tobacco Use Types Packs/Day Years [...] More than 4 times per year 12/15/2021 restoration services? Do you belong to any clubs [...] Recorded Male 05/16/2020 4:27 PM DIRECTOR OF INVESTIGATIONS documented as of this encounter OR Notes Anesthesia Postprocedure Evaluation - Elizabeth Sena M.D. - 07/26/2021 12:03 PM CST Patient: Bruce Singh Procedure Summary Date: 07/26/21 Room / Location: [address] [facility] / [facility] in [place], [place] Anesthesia Start: 07 Anesthesia Stop: 1153 Procedures: ENDOSCOPIC SPHENOIDOTOMY WITH TISSUE REMOVAL. (Bilateral ) ETHMOIDECTOMY ENDOSCOPY. (Bilateral Nose) ENDOSCOPIC MAXILLARY ANTROSTOMY WITH TISSUE REMOVAL. (Bilateral ) SINUSOTOMY ENDOSCOPY FRONTAL. (Bilateral Nose) SEPTOPLASTY. (Posterior Nose) REDUCTION TURBINATE INFERIOR. (Bilateral ) EXTRADURAL COMPUTER NAVIGATION, proceed as indicated. (N/A ) Diagnosis: Rhinosinusitis Chronic (Rhinosinusitis Chronic [J32.8].) Providers: Toro Pena M.D. Responsible Provider: Addis Mcdaniel M.D. Anesthesia Type: general ASA Status: 4 Anesthesia Type: general Last vitals Vitals Value Taken Time BP 126/64 07/26/21 1145 Temp 36.9 ??C 07/26/21 1145 Pulse 70 07/26/21 1159 Resp 18 07/26/21 1159 SpO2 96 % 07/26/21 1159 Vitals shown include unvalidated device data. Please reference Vitals flowsheet for most recent vital signs. Anesthesia Post Evaluation Patient Disposition: dismissal Cardiovascular status: hemodynamics (HR & BP) acceptable Respiratory status: patent airway with spontaneous effort Temperature: normothermic Oxygen requirements: room air Level of consciousness: awake Pain score: pain adequately controlled and/or at baseline Post Op nausea/vomiting: none Hydration status: euvolemic Comments: Patient was complaining of severe headache in post-op in the setting of his sinus surgery.Headache was resistant of Tylenol, opioids, ketamine. No NSAIDs given his CKD and transplant hx. Patient received 24 mcg of Precedex as a rescue with the significant improvement of his symptoms. CTOR OF INVESTIGATIONS Anesthesia Procedure Notes - Leisa Badillo APRN, CRNA - 07/26/2021 8:27 AM DIRECTOR OF INVESTIGATIONS Associated Order(s): Invasive Catheter Invasive Catheter Date/Time: 07/26/2021 8:27 AM Performed by: Leisa Badillo APRN, CRNA Authorized by: Addis Mcdaniel M.D. Location: OR PROCEDURE DETAILS: Line type: arterial Laterality: left Location: radial Location details: new site Age group: adult Catheter diameter: 20 Ga Technique: palpation Monitored: yes Number of attempts: 1 UNIVERSAL PROTOCOL All relevant documentation and testing were reviewed and available. All required blood products, implants, devices and or special equipment were made available as applicable. Pre-procedure verificationwas conducted and the correct site was marked if required. A fire risk assessment was done as applicable. The procedural time-out was conducted prior to performing the procedure and confirmed in a procedural pause. PRE-PROCEDURE DETAILS: Appropriate hand hygiene, gown, cap, mask, protective eyewear, sterile gloves, skin preparation, sterile drape, and strict aseptic technique were utilized as applicable for the procedure.: yes Skin preparation: chlorhexidine SEDATION / ANESTHESIA Anesthesia method: anesthesia POST-PROCEDURE DETAILS: Procedure completed successfully: yes Line secured: secured with sutureless device Chlorhexidine disc around insertion site and under catheter with slight turn: yes Complications - arterial: none ATTESTATION STATEMENT CTOR OF INVESTIGATIONS Anesthesia Procedure Notes - Leisa Badillo APRN, CRNA - 07/26/2021 8:26 AM DIRECTOR OF INVESTIGATIONS Associated Order(s): Airway Airway Date/Time: 07/26/2021 8:00 AM Performed by: Leisa Badillo APRN, CRNA Authorized by: Addis Mcdaniel M.D. Patient location during procedure: OR / Procedure Area PROCEDURE DETAILS: Mask difficulty assessment: easy mask Final airway type: video laryngoscope Laryngeal Manipulation: no ETT location: oral VL device: glide scope Adult tube size: 7.5 Adult ETT distance at teeth/gum: 22 Oral tube type: standard ETT Cuffed: yes Number of attempt to successful placement: 1 Airway confirmation: bilateral breath sounds, positive ETCO2 and bilateral chest rise Other previous techniques attempted: none PRE PROCEDURE DETAILS: Pre evaluation for airway management: procedure Urgency: elective Preop assessment of probable difficulty: no difficulty anticipated Preoxygenation: bag valve mask SEDATION / ANESTHESIA Anesthesia method: anesthesia POST PROCEDURE DETAILS: Procedure outcome: successful Airway event: no complications ATTESTATION STATEMENT CTOR OF INVESTIGATIONS Anesthesia Preprocedure Evaluation - Addis Mcdaniel M.D. - 07/26/2021 6:15 AM CST Preprocedure Anesthesia & H&P Assessment Procedure Summary Date/Time: 07/26/21 0745 Procedures: ENDOSCOPIC SPHENOIDOTOMY WITH TISSUE REMOVAL. (Bilateral ) ETHMOIDECTOMY ENDOSCOPY. (Bilateral Nose) ENDOSCOPIC MAXILLARY ANTROSTOMY WITH TISSUE REMOVAL. (Bilateral ) SINUSOTOMY ENDOSCOPY FRONTAL. (Bilateral Nose) SEPTOPLASTY. (Posterior Nose) REDUCTION TURBINATE INFERIOR. (Bilateral ) EXTRADURAL COMPUTER NAVIGATION, proceed as indicated. (N/A ) Diagnosis: Rhinosinusitis Chronic [J32.8] Pre-op diagnosis: Rhinosinusitis Chronic [J32.8]. Location: [place] [address] / [facility] in [place], [place] Providers: Toro Pena M.D. Pertinent components of the patient's history including current problem list, medical history, surgical history, family history, social history, medications and allergies were reviewed. Present illnessand pre-op diagnosis were confirmed. The planned surgery / procedure was verified with the patient /legal guardian. 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) (+) Chronic Kidney Disease NOS (+) Chronic Kidney Disease Stage 3 Glomerular Filtration Rate 30 To 59 (HCC) (+) Chronic Kidney Disease Stage 4 Glomerular Filtration Rate 15-29 (HCC) (+) Hypertension And Chronic Kidney Disease Stage 5 (HCC) GENETICS (+) Hyponatremia HEME (+) Anemia ID (+) Acute Bronchitis Due To COVID-19 (+) COVID-19 Infection (+) Colitis Cytomegalovirus (HCC) Other (+) 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) OBJECTIVE PHYSICAL EXAMINATION Airway (HEENT) Mallampati: II TM Distance: <3 FB Neck ROM: Limited Mouth Opening: >3 cm Upper Lip Bite Test Class: II Facies (pediatrics): normal Cardiovascular Rhythm: Regular Rate: Normal Cardiovascular Assessment: cardiovascular normal Functional Capacity: >4 METS Pulmonary Pulmonary Assessment: Crackles and wheezing General / Constitutional Constitutional Assessment: Normal General State of Health:: calm Neurological Neurologic Assessment:??alert ASSESSMENT / PLAN ANESTHESIA PLAN ASA: 4 Anesthesia Plan: general Patient seen and allergies reviewed, anesthesia plan and risks discussed directly with patient /legal guardian or through an etcher photoengraving. Risks/Benefits/Alternatives of Blood transfusion discussed with patient / legal guardian, including an opportunity to ask questions and/or decline some or all transfusion therapies. The patient / legalguardian consented to the use of all blood products, as deemed medically necessary Approval to Proceed: approved for anesthesia CTOR OF INVESTIGATIONS documented in this encounter Plan of Treatment Upcoming Encounters Date Type Specialty Care Team Description 04/24/2022 Appointment Laboratory Medicine Angélica Granger P.A.-C. [address] [place] [phone] 04/25/2022 Office Visit Otorhinolaryngology Dex Matta APRN, C.N.P., M.S.N. [address] [place] [phone] 05/08/2022 Appointment Laboratory Medicine Angélica Granger P.A.-C. [address] [place] [phone] 05/08/2022 Clinical Admitting/Central Communication Scheduling 05/10/2022 Appointment Radiology Jeremie Rose M.D. [address] [place] [phone] 05/10/2022 Comprehensive Visit Orthopedic Surgery aWrner Graves M.D. [address] [place] [phone] 05/22/2022 Appointment Laboratory Medicine Angélica Granger P.A.-C. [address] [place] [phone] 06/05/2022 Appointment Laboratory Medicine Angélica Granger P.A.-C. [address] [place] [phone] 06/19/2022 Appointment Laboratory Medicine Angélica Granger P.A.-C. [address] [place] [phone] 07/03/2022 Appointment Laboratory Medicine Angélica Granger P.A.-C. [address] [place] [phone] 07/17/2022 Appointment Laboratory Medicine Angélica Granger P.A.-C. [address] [place] [phone] 07/31/2022 Appointment Laboratory Medicine Angélica Granger P.A.-C. [address] [place] [phone] 08/14/2022 Appointment Laboratory Medicine Angélica Granger P.A.-C. [address] [place] [phone] 08/28/2022 Appointment Laboratory Medicine Angélica Granger P.A.-C. [address] [place] [phone] documented as of this encounter Procedures Procedure Name Priority Date/Time Associated Comments Diagnosis LDA ANE ARTERIAL LINE Routine 07/26/2021 8:27 AM Results for this INSERTION DIRECTOR OF INVESTIGATIONS procedure are i n the results section. AL ARTL CATH/CNULA Routine 07/26/2021 8:27 AM Res ults for this MONITOR PERC DIRECTOR OF INVESTIGATIONS procedure are i n the results section. LDA ANE ENDOTRACHEAL Routine 07/26/2021 8:00 AM R esults for this AIRWAY DIRECTOR OF INVESTIGATIONS procedure are i n the results section. documented in this encounter Results AL ARTL CATH/CNULA MONITOR PERC, LDA ANE ARTERIAL LINE INSERTION (07/26/2021 8:27 AM DIRECTOR OF INVESTIGATIONS) Narrative Leisa Badillo APRN, CRNA - 07/26/2021 8:27 AM DIRECTOR OF INVESTIGATIONS Leisa Badillo APRN, CRNA ? 07/26/2021 ??8:27 AM Invasive Catheter Date/Time: 07/26/2021 8:27 AM Performed by: Leisa Badillo APRN, CRNA Authorized by: Addis Mcdaniel M.D. Location: OR PROCEDURE DETAILS: Line type: arterial ?? Laterality: left Location: radial Location details: new site ? Age group: adult Catheter diameter: 20 Ga Technique: palpation ?? Monitored: yes ?? Number of attempts: 1 UNIVERSAL PROTOCOL All relevant documentation and testing w ere reviewed and available. All required blood products, implants, devic es and or special equipment were made available as applicable. Pre-proced ure verification was conducted and the correct site was marked if required. A fire risk assessment was done as applicable. The procedural time-out w as conducted prior to performing the procedure and confirmed in a procedu ral pause. PRE-PROCEDURE DETAILS: Appropriate hand hygiene, gown, cap, mas k, protective eyewear, sterile gloves, skin preparation, sterile drape, and strict aseptic technique were utilized as applicable for the procedure .: yes ?? Skin preparation: chlorhexidine ?? SEDATION / ANESTHESIA Anesthesia method: anesthesia POST-PROCEDURE DETAILS: Procedure completed successfully: yes ?? Line secured: secured with sutureless de vice Chlorhexidine disc around insertion site and under catheter with slight turn: yes ?? Complications - arterial: none ATTESTATION STATEMENT Addis Mcdaniel M.D. PROCEDURE/MINOR SURGICAL ORD ERABLES LDA ANE ENDOTRACHEAL AIRWAY (07/26/2021 8:00 AM DIRECTOR OF INVESTIGATIONS) Narrative Leisa Badillo APRN, CRNA - 07/26/2021 8:00 AM DIRECTOR OF INVESTIGATIONS Leisa Badillo APRN, CRNA ? 07/26/2021 ??8:27 AM Airway Date/Time: 07/26/2021 8:00 AM Performed by: Leisa Badillo APRN, QA SOFTWARE TESTER Authorized by: Addis Mcdaniel M.D. Patient location during procedure: OR / Procedure Area PROCEDURE DETAILS: Mask difficulty assessment: easy mask Final airway type: video laryngoscope Laryngeal Manipulation: no ?? ETT location: oral VL device: glide scope Adult tube size: 7.5 Adult ETT distance at teeth/gum: 22 Oral tube type: standard ETT Cuffed: yes Number of attempt to successful placemen t: 1 Airway confirmation: bilateral breath so unds, positive ETCO2 and bilateral chest rise Other previous techniques attempted: non e PRE PROCEDURE DETAILS: Pre evaluation for airway management: pr ocedure Urgency: elective Preop assessment of probable difficulty: no difficulty anticipated Preoxygenation: bag valve mask SEDATION / ANESTHESIA Anesthesia method: anesthesia POST PROCEDURE DETAILS: ? Procedure outcome: successful ?? Airway event: no complications ATTESTATION STATEMENT Addis Mcdaniel M.D. ANESTHESIA ORDERABLES documented in this encounter Visit Diagnoses Not on filedocumented in this encounter Administered Medications Inactive Administered Medications - up to 3 most recent administrations Medication Order MAR Action Action Date Dose Rate Site albumin human 5 % injection Given 07/26/2021 10:55 AM DIRECTOR OF INVESTIGATIONS 250 mL intravenous, As needed, Starting on Shraddha 07/26/21 at 1055, Anesthesia Intra-op albuterol 90 mcg/actuation inhaler Given 07/26/2021 8:07 AM DIRECTOR OF INVESTIGATIONS 4 puffs inhalation, As needed, Starting on Shraddha 07/26/21 at 0807, Anesthesia Intra-op ceFAZolin injection (ANCEF) Given 07/26/2021 11:04 AM DIRECTOR OF INVESTIGATIONS 2 g intravenous, As needed, Starting on Shraddha 07/26/21 at 0811, Anesthesia Intra-op Given 07/26/2021 8:11 AM DIRECTOR OF INVESTIGATIONS 2 g dexAMETHasone injection (DECADRON) Given 07/26/2021 8:37 AM DIRECTOR OF INVESTIGATIONS 4 mg intravenous, As needed, Starting on Shraddha 07/26/21 at 0837, Anesthesia Intra-op Given 07/26/2021 8:17 AM DIRECTOR OF INVESTIGATIONS 4 mg dexmedeTOMIDine 80 mcg/20 mL (4 mcg/mL) Given 07/26/2021 9:09 AM DIRECTOR OF INVESTIGATIONS 20 mcg injection (PRECEDEX) intravenous, As needed, Starting on Shraddha 07/26/21 at 0851, Anesthesia Intra-op Given 07/26/2021 8:59 AM DIRECTOR OF INVESTIGATIONS 20 mcg Given 07/26/2021 8:51 AM DIRECTOR OF INVESTIGATIONS 20 mcg dexmedeTOMIDine injection (PRECEDEX) Given 07/26/2021 12:15 PM DIRECTOR OF INVESTIGATIONS 24 mcg intravenous, As needed, Starting on Shraddha 07/26/21 at 1215, Anesthesia Intra-op fentaNYL injection (SUBLIMAZE) Given 07/26/2021 11:37 AM DIRECTOR OF INVESTIGATIONS 50 mcg intravenous, As needed, Starting on Shraddha 07/26/21 at 0829, Anesthesia Intra-op Given 07/26/2021 8:29 AM DIRECTOR OF INVESTIGATIONS 100 mcg glycopyrrolate injection (ROBINUL) Given 07/26/2021 11:28 AM DIRECTOR OF INVESTIGATIONS 0.2 mg intravenous, As needed, Starting on Shraddha 07/26/21 at 1126, Anesthesia Intra-op Given 07/26/2021 11:26 AM DIRECTOR OF INVESTIGATIONS 0.2 mg lactated ringers New Bag 07/26/2021 7:44 AM DIRECTOR OF INVESTIGATIONS intravenous, Continuous Infusion: Per Instructions PRN, Starting on Shraddha 07/26/21 at 0744, Anesthesia Intra-op lidocaine (PF) (cardiac) injection Given 07/26/2021 7:59 AM DIRECTOR OF INVESTIGATIONS 100 mg intravenous, As needed, Starting on Shraddha 07/26/21 at 0759, Anesthesia Intra-op neostigmine methylsulfate injection Given 07/26/2021 11:31 AM CS T 2 mg (BLOXIVERZ) intravenous, As needed, Starting on Shraddha 07/26/21 at 1128, Anesthesia Intra-op Given 07/26/2021 11:28 AM DIRECTOR OF INVESTIGATIONS 2 mg ondansetron (PF) injection (ZOFRAN) Given 07/26/2021 11:15 AM DIRECTOR OF INVESTIGATIONS 4 mg intravenous, As needed, Starting on Shraddha 07/26/21 at 1115, Anesthesia Intra-op phenylephrine injection Given 07/26/2021 10:27 AM DIRECTOR OF INVESTIGATIONS 100 mcg intravenous, As needed, Starting on Shraddha 07/26/21 at 0840, Anesthesia Intra-op Given 07/26/2021 9:55 AM DIRECTOR OF INVESTIGATIONS 100 mcg Given 07/26/2021 9:43 AM DIRECTOR OF INVESTIGATIONS 50 mcg propofol 10 mg/mL infusion Rate/Dose 07/26/2021 25 mcg/kg/min 10.515 (DIPRIVAN) Change 11:13 AM DIRECTOR OF INVESTIGATIONS mL/hr intravenous, Continuous Infusion: Per Instructions PRN, Starting on Shraddha 07/26/21 at 0759, Anesthesia Intra-op Rate/Dose Change 07/26/2021 10:00 AM DIRECTOR OF INVESTIGATIONS 50 mcg/kg/min 21.03 mL/hr Rate/Dose Change 07/26/2021 8:43 AM DIRECTOR OF INVESTIGATIONS 100 mcg/kg/min 42.06 mL/hr propofoL injection (DIPRIVAN) Given 07/26/2021 7:59 AM DIRECTOR OF INVESTIGATIONS 100 mg intravenous, As needed, Starting on Shraddha 07/26/21 at 0759, Anesthesia Intra-op remifentaniL 20 mcg/mL in Rate/Dose 07/26/2021 0.3 mcg/kg/min 63.09 NaCl 0.9% 100 mL infusion Change 11:15 AM DIRECTOR OF INVESTIGATIONS mL/hr (ULTIVA) intravenous, Continuous Infusion: Per Instructions PRN, Starting on Shraddha 07/26/21 at 0801, Anesthesia Intra-op New Bag 07/26/2021 7:59 AM DIRECTOR OF INVESTIGATIONS 0.25 mcg/kg/min 52.575 mL/hr remifentaniL injection (ULTIVA) Given 07/26/2021 7:59 AM DIRECTOR OF INVESTIGATIONS 100 mcg intravenous, As needed, Starting on Shraddha 07/26/21 at 0759, Anesthesia Intra-op rocuronium injection (ZEMURON) Given 07/26/2021 10:26 AM DIRECTOR OF INVESTIGATIONS 10 mg intravenous, As needed, Starting on Shraddha 07/26/21 at 0759, Anesthesia Intra-op Given 07/26/2021 9:59 AM DIRECTOR OF INVESTIGATIONS 10 mg Given 07/26/2021 8:24 AM DIRECTOR OF INVESTIGATIONS 20 mg succinylcholine (PF) injection (ANECTINE ) Given 07/26/2021 7:59 AM DIRECTOR OF INVESTIGATIONS 20 mg intravenous, As needed, Starting on Shraddha 07/26/21 at 0824, Anesthesia Intra-op documented in this encounter Additional Health Concerns Assessment Noted Time PHQ-9 Depression Total Score: 4 11/28/2020 10:17 AM CD T documented as of this encounter Care Teams [place] Guide Relationship Specialty Start Date End Date Elsewhere, Pcp PCP - General Family Medicine 07/29/17 [facility] - Laboratory Medicine 04/12/[address] [phone] documented as of this encounter
--- OUTSIDE RECORDS SUMMARY | 2022-04-13 12:07 | XMS_ITS | Encounter Summary ---
:1955 Author Organization [facility] Address [address] [place] [address] Care Team Providers Name Role Phone Elsewhere, Pcp Primary Care Provider Unavailable Reason for Referral Outpatient (Routine) - Closed Specialty Diagnoses / Procedures Referred By Contact Refer red To Contact Diagnoses Hypertension And Chronic Kidney Disease Stage 5 (HCC) Chronic Cough Otoniel Norwood Jr., [facility] Procedures DX Chest AP or PA and Lateral 2 Views D.O[address] [place] [address] Referral ID Status Reason Start Date Expiration Date Visits Requ ested Visits Authorized [id number] Closed 07/30/2021 07/30/2022 1 1 LE BASS PLAYER Reason for Visit Outpatient (Routine) - Closed Specialty Diagnoses / Procedures Referred By Contact Refer red To Contact Diagnoses Hypertension And Chronic Kidney Disease Stage 5 (HCC) Chronic Cough Otoniel Norwood Jr., [facility] Procedures DX Chest AP or PA and Lateral 2 Views D.O. [address] [place], [place] [phone] Referral ID Status Reason Start Date Expiration Date Visits Requ ested Visits Authorized [id number] Closed 07/30/2021 07/30/2022 1 1 Encounter Details Date Type Department Care Team Description 07/31/2021 Hospital Encounter Department of [facility], Maninder higgins And Chronic Kidney Disease Stage 5 (HCC); Radiology, [place] Otoniel C Jr., Chronic [facility] Building, in D[place]O. 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 Pain. No more than 2000 mg per day. albuterol 90 Inhale 2 puffs every 90 g 11 06/21/2021 mcg/actuation inhaler 6 (six) hours as needed for wheezing. amoxicillin (AMOXIL) Take 4 capsules by 0 018 500 mg capsule mouth as directed. Prior to dental procedures aspirin 81 mg chewable Chew 81 mg daily. 0 2017 tablet atorvastatin (LIPITOR) TAKE 1 TABLET(10 MG) 90 tablet 3 10 mg tablet BY MOUTH DAILY benzonatate (TESSALON Take 100 mg by 0 01/04/2021 PERLES) 100 mg capsule mouth. coenzyme Q10 (CO Q-10) Take 1 capsule by 0 2017 200 mg capsule mouth daily. darbepoetin Inject 0.3 mL (60 1 Syringe 6 01/09/2021 michelle-polysorbate mcg total) under the (Aranesp, in skin once for 1 polysorbate,) 60 dose. Hold if Hgb mcg/0.3 mL injection greater than 11 g/dL. Give once every 28 days. loratadine (CLARITIN) Take 10 mg by mouth 0 10 mg tablet at bedtime. montelukast (SINGULAIR) Take 10 mg by mouth 0 10 mg tablet at bedtime. multivitamin renal Take 1 tablet by 30 tablet 05/26/2021 05/26/2022 failure (DIALYVITE) mouth daily with 100-1 mg tablet dinner. ondansetron (ZOFRAN) 4 Take 1 tablet (4 mg 20 tablet 0 06/0 02/2021 mg tablet total) by mouth every 8 (eight) hours as needed for nausea or vomiting. doxycycline monohydrate Take 1 tablet (100 20 tablet 0 02/0 08/202108/05/2021 (ADOXA) 100 mg tablet mg total) by mouth 2 (two) times a day for 10 days. acetaminophen (TYLENOL) Take 1 tablet (500 [...] total) by mouth 25 mcg every morning before tabletIndications: breakfast. Transplant Liver (HCC) multivitamin tablet Take 1 tablet by 0 06/18/2013 10/12/2021 mouth daily. Maintenance mycophenolate TAKE 1 TABLET BY 180 tablet 3 11/06/202010/11 (CELLCEPT) 500 mg MOUTH TWICE DAILY tabletIndications: Transplant Liver (HCC) NIFEdipine XL TAKE 3 TABLETS(90 270 tablet 3 07/05/202109/22 (PROCARDIA XL) 30 mg 24 MG) BY MOUTH DAILY hr tabletIndications: Hypertension And Chronic Kidney Disease Stage 4 (HCC) oxyCODONE (ROXICODONE) Take 1 tablet (5 mg 10 tablet 0 08/202110/13/2021 5 mg immediate release total) by mouth tabletIndications: every 4 (four) hours Acute Pain as needed for severe pain or score 7-10 of 10 Indication: Acute Pain. predniSONE (DELTASONE) TAKE 1 TABLET(5 MG) 90 tablet 3 12/202110/16/2021 5 mg tabletIndications: BY MOUTH DAILY Transplant Liver (HCC), Medication Therapy Ritual Circumciser Not Anticoagulant sulfamethoxazole-trimet Take 1 tablet by 10 tablet 0 202108/09/2021 hoprim (BACTRIM DS) mouth daily for 10 800-160 mg per tablet days. tacrolimus (PROGRAF) TAKE 2 CAPSULES BY 360 capsule 3 202110/16/2021 0.5 mg MOUTH TWICE DAILY capsuleIndications: Transplant Liver (HCC), Medication Therapy Ritual Circumciser Not Anticoagulant torsemide (DEMADEX) 10 Take 30 mg by mouth 0 08/17/2021 mg tablet daily. UNABLE TO FIND by nasal 0 10/12/2021 (alternating) route 2 (two) times a day. Azelastine 1mg to Sinus Rinse twice daily. [facility] documented as 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 [address] [place] [phone] 04/25/2022 Office Visit Otorhinolaryngology Dex Matta APRN, C.N.P., M.S.N. [address] [place] [phone] 05/08/2022 Appointment Laboratory Medicine Angélica Granger P.A.-CDemetrius [address] [place] [phone] 05/08/2022 Clinical Admitting/Central Communication Scheduling 05/10/2022 Appointment Radiology Jeremie Rose M.D. [address] [place] [phone] 05/10/2022 Comprehensive Visit Orthopedic Surgery Warner Graves M.D. [address] [place] [phone] 05/22/2022 Appointment Laboratory Medicine Angélica Granger P.A.-CDemetrius [address] [place] [phone] 06/05/2022 Appointment Laboratory Medicine Angélica Granger P.A.-C. [address] [place] [phone] 06/19/2022 Appointment Laboratory Medicine Angélica Granger P.A.-C. [address] [place] [phone] 07/03/2022 Appointment Laboratory Medicine Angélica Granger P.A.-C. [address] [place] [phone] 07/17/2022 Appointment Laboratory Medicine Angélica Granger P.A.-C. [address] [place] [phone] 07/31/2022 Appointment Laboratory Medicine Angélica Granger P.A.-C. [address] [place] [phone] 08/14/2022 Appointment Laboratory Medicine Angélica Granger P.A.-C. [address] [place] [phone] 08/28/2022 Appointment Laboratory Medicine Angélica Granger P.A.-C. [address] [place] [phone] documented as of this encounter Procedures Procedure Name Priority Date/Time Associated Comments Diagnosis DX CHEST AP OR PA RAD - Routine 07/31/2021 9:29 Hypertension And Re sults for this AND LATERAL 2 (most inpatients AM DOUBLE BASS PLAYER Chronic Kidney procedur e are in VIEWS and all Disease Stage 5 the results outpatients) (HCC) section. Chronic Cough documented in this encounter Results DX Chest AP or PA and Lateral 2 Views (07/31/2021 9:29 AM DOUBLE BASS PLAYER) Anatomical Region Laterality Modality Chest, Thoracic RST LOS, Thoracic ARZ LOS, Thoracic N/A Digital Radiography FLA LOS Specimen (Source) Anatomical Collection Method Collection Time Re ceived Time Location / / Volume Laterality 07/31/2021 9:45 AM DOUBLE BASS PLAYER Impressions 07/31/2021 10:16 AM DOUBLE BASS PLAYER Comparison 05/23/2021. Stable patchy opacities in the lung bases consistent with bronchiectasis is seen o n the prior chest CT from 06/12/2021. No acute infiltrates. Nipple shadows. Libby l cardiac silhouette. Right IJ catheter tip in the low SVC. Left PICC line tip i n the SVC/RA junction. Degenerative changes of the spine. Narrative 07/31/2021 10:16 AM DOUBLE BASS PLAYER EXAM: ??DX CHEST AP OR PA AND LATERAL 2 VIEWS Procedure Note Royal Collazo M.D. - 07/31/2021Formatt ing of this note might be different from the original. EXAM: DX CHEST AP OR PA AND LATERAL 2 EWS IMPRESSION: Comparison 05/23/2021. Stable patchy opa cities in the lung bases consistent with bronchiectasis is seen o n the prior chest CT from 06/12/2021. No acute infiltrates. Nipple shadows. Libby l cardiac silhouette. Right IJ catheter tip in the low SVC. Left PICC line tip i n the SVC/RA junction. Degenerative changes of the spine. Louie Pelletier Jr.O. [facility] [employer] C[employer] documented in this encounter Visit Diagnoses Diagnosis Hypertension And Chronic Kidney Disease Stage 5 (HCC) Chronic Cough documented in this encounter Additional Health Concerns Assessment Noted Time PHQ-9 Depression Total Score: 4 11/28/2020 10:17 AM CD T documented as of this encounter Care Teams Fitness Worker Relationship Specialty Start Date End Date Elsewhere, Pcp PCP - General Family Medicine 07/29/17 [facility] - Laboratory Medicine 04/12/[address] [address] documented as of this encounter
--- OUTSIDE RECORDS SUMMARY | 2022-04-13 12:07 | XMS_ITS | Encounter Summary ---
:1955 Author Organization [facility] Address [address] [place] [address] Care Team Providers Name Role Phone Elsewhere, Pcp Primary Care Provider Unavailable Encounter Details Date Type Department Care Team Description 07/30/2021 Documentation Division of Nephrology and Suhail Norwood Hypertension in [place], ., D.O. [place] [address] [facility] [address] [place] [phone] (Wo rk) Social History Tobacco Use Types [...] More than 4 times per year 12/15/2021 tenriism services? Do you belong to any clubs [...] at Date Recorded Male 05/16/2020 4:27 PM HHA documented as of this encounter Progress Notes Otoniel Norwood Jr., D.O. - 07/30/2021 10:41 AM CST Care coordination note: Please see the scanned in note from [facility] dialysis today. I appreciate he had sinus surgery done last week, and his headaches and some of his nasal drainage has improved dramatically. He is currently on antibiotic treatment. However he is extremely fatigued, and gets profoundly winded even walking a few steps. We have been attempting to challenge his target weight and remove more volume, only to be met with cramping and hypotension. On exam today he has diffuse wheezing and rhonchi in both lungs. He has not had fevers no chills. He is set for a follow-up visit tomorrow with our ENT team. I am going to orchestrate a chest x-ray,and will send a message to his abrasive grader as to whether it would be reasonable to consider another burst of corticosteroids or not. Complex set of circumstances certainly. documented in this encounter Plan of Treatment Upcoming Encounters Date Type Specialty Care Team Description 04/24/2022 Appointment Laboratory Medicine Angélica Granger P.A.-C. [address] [place] [phone] 04/25/2022 Office Visit Otorhinolaryngology Dex Matta APRN, C.N.P., M.S.NDemetrius [address] [place] [phone] 05/08/2022 Appointment Laboratory Medicine Angélica Granger P.A.-C. [address] [place] [phone] 05/08/2022 Clinical Admitting/Central Communication Scheduling 05/10/2022 Appointment Radiology Jeremie Rose M.D. [address] [place] [phone] 05/10/2022 Comprehensive Visit Orthopedic Surgery Warner Graves M.D. [address] [place] [phone] 05/22/2022 Appointment Laboratory Medicine Angélica Granger P.A.-C. [address] [place] [phone] 06/05/2022 Appointment Laboratory Medicine Angélica Granger P.A.-C. [address] [place] [phone] 06/19/2022 Appointment Laboratory Medicine Angélica Granger P.A.-C. [address] [place] [phone] 07/03/2022 Appointment Laboratory Medicine Angélica Granger P.A.-C. [address] [place] [phone] 07/17/2022 Appointment Laboratory Medicine Angélica Granger P.A.-C. [address] [place] [phone] 07/31/2022 Appointment Laboratory Medicine Angélica Granger P.A.-C. [address] [place] [phone] 08/14/2022 Appointment Laboratory Medicine Angélica Granger P.A.-C. [address] [place] [phone] 08/28/2022 Appointment Laboratory Medicine Angélica Granger P.A.-C. 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
--- OUTSIDE RECORDS SUMMARY | 2022-04-13 12:07 | XMS_ITS | Encounter Summary ---
:1955 Author Organization [facility] Address [address] [place] [address] Care Team Providers Name Role Phone Elsewhere, Pcp Primary Care Provider Unavailable Reason for Referral Transplant (Routine) - Closed Specialty Diagnoses / Procedures Referred By Contact Refer red To Contact Transplant Surgery / Diagnoses Transplant Liver (HCC) Medication Therapy Chief Compressor Station Engineer Not Anticoagulant Colitis Cytomegalovirus (HCC) Trung Plasencia, [facility] Transplant Edmundo, M.S. [address] [place] [address] Referral ID Status Reason Start Date Expiration Date Visits Requ ested Visits Authorized [id number] Closed 08/08/2021 08/08/2022 1 1 Scheduling Instructions Please schedule with annual eval in November ROBIN- please schedule with annual in November . 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 [address] [place] [address] [phone] Referral ID Status Reason Start Date Expiration Date Visits Requ ested Visits Authorized [id number] Closed 08/08/2021 08/08/2022 1 1 RAME DESIGN ENGINEER Encounter Details Date Type Department Care Team Description 08/03/2021 Clinical Communication Irena Gamez Seymour for R, R.N. 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 - 08/08/2021 11:11 AM AIRFRAME DESIGN ENGINEER Addended by: ROMAN DUBOIS on: 08/08/2021 11:11 AM Modules accepted: Orders RAME DESIGN ENGINEER Telephone Encounter - Roman Dubois R.N. - 08/08/2021 11:10 AM CST Orders placed for weekly labs at [facility]. PICC removal scheduled. IV Ganciclovir discontinued. PO Valcyte prescription sent to patient's local [facility]. RAME DESIGN ENGINEER Telephone Encounter - Roman Dubois R.N. - 08/08/2021 8:53 AM CST I returned a call to Argelia to advise Trung's recommendations to discontinue Bruce's IV ganciclovir at this time and remove his PICC. Argelia advised that she will fax over a prescription that Trung will need to sign from a billing perspective to cover the supply that has been previously sent and used by Bruce. She advised that they will discontinue the IV Ganciclovir at this time in their system. I advised we would order oral Valcyte for Bruce and arrange PICC removal here. RAME DESIGN ENGINEER Telephone Encounter - Roman Dubois R.N. - 08/06/2021 4:08 PM CST Please review labs below. 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 Per your note from 07/12: 1) CMV colitis, biopsy confirmed with CMV viremia- Qn CMV PCR from July 10 is down to <35 IU/mL. Repeat colonoscopy still shows shallow aphthous-like ulcerations with mild inflammation with erythema and granularity in the entire colon. Will continue with IV ganciclovir for now. Awaiting colon pathology. June 23, 2021 Colon, random biopsies: mild active chronic colitis. No dysplasia. CMV immunostain is negative. Will plan to continue IV ganciclovir for a few more weeks given the ongoing mildactive colitis and until Qn CMV PCR is undetected x 2 2) Anemia with positive hemoccult refractory to ARANESP- Hemoglobin remains low but has improved. 3) Recurrent Clostridioides difficile infection, last episode, May 24, 2021- He completed a 21 day course of twice daily oral vancomycin recently after being placed on Bactrim for respiratory tract infection. 4) Chronic rhinosinusitis with chronic cough and post nasal drip with recurrent aspiration unresponsive to multiple interventions- Received sinus surgery on 07/26/21. He had been on doxycycline 07/26/21 but switched to bactrim on 07/30/21 by you due to culture results following surgery. He has been using twice daily budesonide rinses. 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 6) He follows with Padmini Barry CNP in Nephrology for stage 5 CKD, on hemodialysis. Current Medications & Recent Dose Changes: Tacrolimus 1 mg BID Mycophenolate 500 mg BID Prednisone 5 mg daily Labs: Recent Labs 07/10/21 0928 06/12/21 0844 05/29/21 1009 05/25/21 0505 TACROLIMUS 6.2 1.5 L 1.6 L 2.1 L Recent Labs 07/20/21 0900 07/16/21 0816 07/10/21 0928 06/12/21 0845 06/12/21 0844 05/29/21 1009 05/25/21 1235 05/25/21 0505 05/24/21 1040 05/24/21 1039 05/23/21 1137 05/23/21 0834 05/23/21 0834 HGB 10.1 L 10.4 L 10.1 L -- < > 7.6 L < > 6.5 L -- < > 7.4 L -- 6.7 L HCT 31.4 L 32.0 L 31.2 L -- < > 24.2 L < > 20.3 L -- < > 22.0 L 22.4 L -- 22.2 L WBC 5.2 5.6 4.7 -- < > 3.2 L < > 3.0 L -- < > 3.5 -- 3.4 NEUTROPHILS 3.5 4.10 3.61 -- -- 2.37 < > 2.15 -- < > 2.85 < > -- PLT 306 266 209 -- < > 209 < > 156 -- < > 175 -- 200 NA 135 -- 137 131 L -- 129 L 129 L < > 129 L 128 L < > 129 L 125 L -- 128 L KPLASMA -- -- -- -- -- 4.2 4.2 -- -- -- -- 3.9 -- 4.1 KBLOOD -- -- -- -- -- -- -- -- 4.1 -- 3.7 -- -- KSERUM 3.7 -- 4.1 3.9 -- -- < > 4.1 -- < > -- -- -- MG -- -- -- -- -- -- -- 2.5 H -- -- -- -- -- GLUCOSE 106 H -- CANCELED 118 H CANCELED 113 H -- CANCELED CANCELED 112 H < > 117 -- < > 139 -- 119 BUN 41 H -- 25 H 22 -- 47 H 47 H < > 58 H -- < > 59 H -- 55 H CREATININE 3.79 H -- 2.75 H 2.90 H -- 3.95 H 3.95 H < > 4.72 H -- < > 4.31 H -- 4.25 H ALKPHOS 140 H -- 151 H 121 -- 108 -- -- -- -- 107 < > -- AST 23 -- 29 22 -- 45 -- -- -- -- 24 < > -- ALT 21 -- 34 26 -- 40 -- -- -- -- 20 < > -- BILITOT 0.4 -- 0.4 0.3 -- 0.2 -- -- -- -- 0.3 < > -- BILIDIR -- -- -- -- -- -- -- -- -- -- <0.2 -- -- PT -- -- -- -- -- -- -- -- -- -- 11.7 -- -- INR -- -- -- -- -- -- -- -- -- -- 1.1 -- -- ALBUMIN 3.6 -- 3.9 3.3 L -- 3.3 L 3.3 L < > -- -- -- 3.6 -- 3.6 < > = values in this interval not displayed. Serologies: Recent Labs 07/27/21 1025 07/20/21 0900 07/16/21 0816 07/10/21 0928 06/12/21 1402 CMVQUANT <200 positive <200 <35 A <35 A 980 A Immunosuppression Goal Range: 2 Current Lab Frequency: Weekly Please advise on any changes or recommendations. Thanks, Roman Dubois R.N. *All labs are now found in [employer] - Lab - Flowsheets. For further review of labs, please review there or under Synopsis* RAME DESIGN ENGINEER Telephone Encounter - Sienna Gamboa - 08/03/2021 1:47 PM CST Argelia from speciality pharmacy is calling in needing a signature for ganciclovir that was faxed over on 07/25/21. If needed please contact her back. #[phone] Thank you RAME DESIGN ENGINEER documented in this encounter Plan of Treatment Upcoming Encounters Date Type Specialty Care Team Description 04/24/2022 Appointment Laboratory Medicine Angélica Granger P.ADurgaCDemetrius [address] [place] [phone] 04/25/2022 Office Visit Otorhinolaryngology Dex Matta APRN, C.N.P., M.S.N. [address] [place] [phone] 05/08/2022 Appointment Laboratory Medicine Angélica Granger P.A.-C. [address] [place] [phone] 05/08/2022 Clinical Admitting/Central Communication Scheduling 05/10/2022 Appointment Radiology Jeremie Rose M.D. [address] [place] [phone] 05/10/2022 Comprehensive Visit Orthopedic Surgery Warner Graves M.D. [address] [place] [phone] 05/22/2022 Appointment Laboratory Medicine Angélica Granger P.A.-C. [address] [place] [phone] 06/05/2022 Appointment Laboratory Medicine Angélica Granger P.A.-C. [address] [place] [phone] 06/19/2022 Appointment Laboratory Medicine Angélica Granger P.A.-C. [address] [place] [phone] 07/03/2022 Appointment Laboratory Medicine Angélica Granger P.A.-C. [address] [place] [phone] 07/17/2022 Appointment Laboratory Medicine Angélica Granger P.A.-C. [address] [place] [phone] 07/31/2022 Appointment Laboratory Medicine Angélica Granger P.A.-C. [address] [place] [phone] 08/14/2022 Appointment Laboratory Medicine Angélica Granger P.A.-C. [address] [place] [phone] 08/28/2022 Appointment Laboratory Medicine Angélica Granger P.A.-C. [address] [place] [address] Scheduled Referrals Name Type Priority Associated Diagnoses Order S chedule Transplant Liver Outpatient Routine Transplant Live r (HCC) Expected: office visit Referral Medication Therapy Long 11/2021 (clinic) Term Not Anticoa gulant (Approximate), Colitis Cytomegalovirus Expi res: (HCC) 11/05/2022 documented as of this encounter Results (ABNORMAL) Tacrolimus, B (11/28/2021 8:19 AM CDT) athologist Signature Tacrolimus, B 2.0 (L) 5.0-15.0 11/29/2021 [facility] (Trough) 10:36 AM CDT ng/mL Comment: [...] its performa nce characteristics determined by [facility] in a manner consistent with CLIA requirements. This test has not been cleared or approved by the U.S. Mer d and Drug Administration. Specimen Anatomical Collection Method Collection Time Receive d Time (Source) Location / / Volume Laterality Blood (Blood, 11/28/2021 8:19 AM 11/30/19 7:23 Venous) CDT AM CDT Trung Plasencia P.A.-C., M.S. LAB BLOOD NON ADD-ON Performing Organization Address City/State/ZIP Code Phon e Number [facility] [address] [place], [place] [address] SU[facility] [place] [address] Laboratory Medicine and Pathology [address] [place] CMV DNA Detect / Quant, Plasma (11/28/2021 8:19 AM CDT) Patholo gist Method Time Signature CMV DNA Undetected Undetected 11/29/2021 [facility] Detect/Quant, IU/mL 11:56 AM P CDT Comment: Result in log IU/mL is Undetected. ----ADDITIONAL INFORMATION---- The quantification range of this assay i s 35 to 10,000,000 IU/mL (1.54 log to 7.00 log IU/mL). Testing was performed u sing the tika CMV test ([employer] with the tika PhotoBox0 System. Specimen Anatomical Collection Method Collection Time Receive d Time (Source) Location / / Volume Laterality Blood (Blood, 11/28/2021 8:19 AM 11/30/19 7:10 Venous) CDT AM CDT Trung Plasencia P.A.-C., M.S. LAB MICROBIOLOGY - BLOOD O RDERABLES Performing Organization Address City/State/ZIP Code Phon e Number [facility] [address] [place], [place] [address] [place] [address] Laboratory Medicine and Pathology [address] [place] [address] Dr. [place] (ABNORMAL) Glucose, Fasting (11/28/2021 8:19 [...] Address City/State/ZIP Code Phon e Number [address] [address] [place] [address] System in [place] [address] (ABNORMAL) Comprehensive Metabolic Panel (11/28/2021 8:19 AM CDT) [facility] Time Signature Potassium, P 4.2 3.6 - [...] eGFR-Black/Afri 20 (L) >=60 11/28/2021 CN[facility] [place] mL/min/BSA 8:51 AM CDT Comment: ----ADDITIONAL INFORMATION---- Estimated GFR calculated using the 2009 CKD_EPI creatinine equation. eGFR Non-Black/ 17 (L) >=60 mL/min/BSA 11/28/2021 8:51 AM CDT [facility] [place] Comment: ----ADDITIONAL INFORMATION---- Estimated GFR calculated using [...] M.S. LAB BLOOD ADD-ON Performing Organization Address City/State/[facility] Code Phon e Number [address] [address] [place] [address] [address] (ABNORMAL) CBC without Differential (11/28/2021 8:19 AM CDT) [facility] gist Method Time Signature Hemoglobin 9.5 [...] Volume Laterality Blood (Blood, 11/28/2021 8:19 AM 06/08/20 22 8:21 Venous) CDT AM CDT Trung Plasencia P.A.-C. MDemetriusS. LAB BLOOD ADD-ON Performing Organization Address City/State/ZIP Code Phon e Number [facility]- [address] [place] [address] [place] [address] [place] [address] System in [place] [address] [address] (ABNORMAL) Tacrolimus, B (11/21/2021 8:02 AM CDT) P athologist Signature Tacrolimus, [...] its performa nce characteristics determined by [facility] in a manner consistent with CLIA requirements. This test has not been cleared or approved by the U.S. Mer d and Drug Administration. Specimen Anatomical Collection Method Collection Time Receive d Time (Source) Location / / Volume Laterality Blood (Blood, 11/21/2021 8:02 AM 11/23/19 22 7:08 Venous) CDT AM CDT Trung Plasencia P.A.-C. M.S. LAB BLOOD NON ADD-ON Performing Organization Address City/State/ZIP Code Phon e Number [facility] [address] [place], [place] [address] [facility] [place] [address] Laboratory Medicine and Pathology [address] [place] (ABNORMAL) CMV DNA Detect / Quant, Plasma (11/21/2021 8:02 AM CDT) Patholo gist Method Time Signature CMV DNA <35 (A) Undetected 11/22/2021 SDS Detect/Quant, IU/mL 2:12 PM CDT P Comment: [...] u sing the tika CMV test ([employer] with the tika [id number] System. Specimen Anatomical Collection Method Collection Time Receive d Time (Source) Location / / Volume Laterality Blood (Blood, 11/21/2021 8:02 AM 11/23/19 22 7:13 Venous) CDT AM CDT Trung Plasencia P.A.-C., M.S. LAB MICROBIOLOGY - BLOOD O RDERABLES Performing Organization Address City/[facility] Code Phon e Number [facility] [address] [place] [address] [place] [address] Laboratory Medicine and Pathology [address] [place] [address] Dr. [place] (ABNORMAL) Glucose, Fasting (11/21/2021 8:02 [...] LAB BLOOD NON ADD-ON Performing Organization Address City/[facility] Phon e Number [address] [place] [address] [place] [address] [address] (ABNORMAL) Comprehensive Metabolic Panel (11/21/2021 8:02 AM CDT) Analysis Performed At Patho [...] eGFR-Black/Afri 22 (L) >=60 11/21/2021 [facility] [place] mL/min/BSA 8:50 AM CDT Comment: ----ADDITIONAL INFORMATION---- Estimated GFR calculated using the 2009 CKD_EPI creatinine equation. eGFR Non-Black/ 19 (L) >=60 mL/min/BSA 11/21/2021 8:50 AM CDT CNFL [place] Comment: ----ADDITIONAL INFORMATION---- Estimated GFR calculated using [...] Laterality Blood (Blood, 11/21/2021 8:02 AM 11/22/19 8:04 Venous) CDT AM CDT Trung Plasencia P.A.-C. M.SDemetrius LAB BLOOD ADD-ON Performing Organization Address City/[facility] Phon e Number [address] [address] [place] [address] [address] (ABNORMAL) CBC without Differential (11/21/2021 8:02 AM CDT) [facility] gist Method Time Signature Hemoglobin 9.9 [...] M.S. LAB BLOOD ADD-ON Performing Organization Address City/State/[facility] Phon e Number [address] [address] [place] [address] System [address] (ABNORMAL) Tacrolimus, B (11/14/2021 7:32 AM CDT) athologist Signature Tacrolimus, B <1.0 (L) 5.0-15.0 11/15/2021 [facility] (Trough) 10:11 AM CDT ng/mL Comment: ----ADDITIONAL [...] its performa nce characteristics determined by [facility] in a manner consistent with CLIA [...] Address City/State/ZIP Code Phon e Number [facility] [address] [place], [place] [address] [facility] [place] [address] Laboratory Medicine and Pathology [address] [place] (ABNORMAL) CMV DNA Detect / [...] u sing the tika CMV test ([employer] with the tika 6800 System. Specimen Anatomical Collection Method Collection Time Receive d Time (Source) Location / / Volume Laterality Blood (Blood, 11/14/2021 7:32 AM 11/16/19 7:39 Venous) CDT AM CDT Trung Plasencia P.A.-C., M.S. LAB MICROBIOLOGY - BLOOD O RDERABLES Performing Organization Address City/[facility]/ZIP [facility] Phon e Number [facility] [address] [address] [place], [place] [address] [facility] [place] [address] Laboratory Medicine and Pathology [address] [place] (ABNORMAL) Glucose, Fasting (11/14/2021 7:32 [...] LAB BLOOD NON ADD-ON Performing Organization Address City/[facility] Phon e Number [address] [address] [place] [address] System [address] (ABNORMAL) Comprehensive Metabolic Panel (11/14/2021 7:32 AM [...] eGFR-Black/Afri 20 (L) >=60 11/14/2021 [facility] [place] mL/min/BSA 8:20 AM CDT Comment: ----ADDITIONAL INFORMATION---- Estimated GFR calculated using the 2009 CKD_EPI creatinine equation. eGFR Non-Black/ 17 (L) >=60 mL/min/BSA 11/14/2021 8:20 AM CDT CN[facility] [place] Comment: ----ADDITIONAL INFORMATION---- Estimated GFR calculated using [...] Laterality Blood (Blood, 11/14/2021 7:32 AM 11/15/19 22 7:33 Venous) CDT AM CDT Trung Plasencia P.A.-C. MDemetriusS. LAB BLOOD ADD-ON Performing Organization Address [facility] Phon e Number [address] [address] [place] [address] [address] (ABNORMAL) CBC without Differential (11/14/2021 7:32 AM CDT) [facility] gist Method Time Signature Hemoglobin 10.0 [...] Laterality Blood (Blood, 11/14/2021 7:32 AM 11/15/19 22 7:33 Venous) CDT AM CDT Trung Plasencia P.A.-C. M.S. LAB BLOOD ADD-ON Performing Organization Address City/State/[facility] Code Phon e Number [place] [address] [place] [address] [place] [address] [address] (ABNORMAL) Tacrolimus, B (11/07/2021 8:31 AM CDT) athologist Signature Tacrolimus, B <1.0 (L) 5.0-15.0 11/08/2021 [facility] (Trough) 10:47 AM CDT ng/mL Comment: [...] its performa nce characteristics determined by [facility] in a manner consistent with CLIA requirements. This test has not been cleared or approved by the U.S. Mer d and Drug Administration. Specimen Anatomical Collection Method Collection Time Receive d Time (Source) Location / / Volume Laterality Blood (Blood, 11/07/2021 8:31 AM 11/09/19 7:06 Venous) CDT AM CDT Trung Plasencia P.A.-C., M.S. LAB BLOOD NON ADD-ON Performing Organization Address City/State/ZIP Code Phon e Number [facility] [address] [place], [place] [address] SU[facility] [place] [address] Laboratory Medicine and Pathology [address] [place] (ABNORMAL) CMV DNA Detect / Quant, Plasma (11/07/2021 8:31 AM CDT) Patholo gist Method Time Signature CMV DNA <35 (A) Undetected 11/08/2021 [facility] Detect/Quant, IU/mL 7:22 PM CDT P [...] performed u sing the tika CMV test ([employer] with the tika PhotoBox0 System. Specimen Anatomical Collection Method Collection Time Receive d Time (Source) Location / / Volume Laterality Blood (Blood, 11/07/2021 8:31 AM 11/08/19 8:44 Venous) CDT PM CDT Trung Plasencia P.A.-C. MDemetriusS. LAB MICROBIOLOGY - BLOOD O RDERABLES Performing Organization Address City/[facility]/ZIP Code Phon e Number [facility] [address] [address] [place], [place] [address] [facility] [place] [address] Laboratory Medicine and Pathology [address] [place] Glucose, Fasting (11/07/2021 8:31 AM [...] LAB BLOOD NON ADD-ON Performing Organization Address City/[facility] Phon e Number [address] [address] [place] [address] [address] (ABNORMAL) Comprehensive Metabolic Panel (11/07/2021 8:31 [...] eGFR-Black/Afri 25 (L) >=60 11/07/2021 CN[facility] [place] mL/min/BSA 9:02 AM CDT Comment: ----ADDITIONAL INFORMATION---- Estimated GFR calculated using the 2009 CKD_EPI creatinine equation. eGFR Non-Black/ 21 (L) >=60 mL/min/BSA 11/07/2021 9:02 AM CDT CNFL [place] Comment: ----ADDITIONAL INFORMATION---- Estimated GFR calculated using [...] M.S. LAB BLOOD ADD-ON Performing Organization Address City/[facility] Code Phon e Number [facility]- [address] [place] [address] [place] [address] [address] (ABNORMAL) CBC without Differential (11/07/2021 8:31 AM CDT) Patholo gist Method [...] 8:33 Venous) CDT AM CDT Trung Plasencia P.A.-C. M.S. LAB BLOOD ADD-ON Performing Organization Address City/[facility] Code Phon e Number [facility]- [address] [place] [address] [place] [address] System in [address] (ABNORMAL) Tacrolimus, B (10/31/2021 8:28 AM CDT) P athologist Signature Tacrolimus, B <1.0 (L) 5.0-15.0 11/01/2021 [facility] (Trough) 10:57 AM CDT ng/mL Comment: ----ADDITIONAL [...] its performa nce characteristics determined by [facility] in a manner consistent with CLIA [...] Address City/State/ZIP Code Phon e Number [facility] [address] [place], [place] [address] [facility] [place] [address] Laboratory Medicine and Pathology [address] [place] (ABNORMAL) CMV DNA Detect / Quant, Plasma (10/31/2021 8:28 AM CDT) [facility] Method Time Signature CMV DNA <35 (A) Undetected 11/01/2021 [facility] Detect/Quant, IU/mL 11:52 AM CDT P Comment: [...] performed u sing the tika CMV test ([employer] with the tika PhotoBox0 System. Specimen Anatomical Collection Method Collection Time Receive d Time (Source) Location / / Volume Laterality Blood (Blood, 10/31/2021 8:28 AM 11/02/19 22 7:04 Venous) CDT AM CDT Trung Plasencia P.A.-C., M.S. LAB MICROBIOLOGY - BLOOD O RDERABLES Performing Organization Address City/State/ZIP Code Phon e Number [facility] [address] [place], [place] [address] [facility] [place] [address] Laboratory Medicine and Pathology [address] [place] (ABNORMAL) Glucose, Fasting (10/31/2021 8:28 AM CDT) P athologist Signature Glucose, P 146 (H) 70 [...] Address City/State/ZIP Code Phon e Number [id number] [place] [address] [place] [address] System [address] (ABNORMAL) Comprehensive Metabolic Panel (10/31/2021 8:28 [...] eGFR-Black/Afri 19 (L) >=60 10/31/2021 CN[facility] [place] mL/min/BSA 8:57 AM CDT Comment: ----ADDITIONAL INFORMATION---- Estimated GFR calculated using the 2009 CKD_EPI creatinine equation. eGFR Non-Black/ 16 (L) >=60 mL/min/BSA 10/31/2021 8:57 AM CDT CNFL [place] Comment: ----ADDITIONAL INFORMATION---- Estimated GFR calculated using [...] City/State/ZIP Code Phon e Number [facility]- [id number] [place] [address] [place] [address] [address] (ABNORMAL) CBC without Differential (10/31/2021 8:28 AM CDT) Patholo gist Method Time Signature Hemoglobin 10.4 (L) [...] City/State/ZIP Code Phon e Number [facility]- [address] [place] [address] [place] [address] System [address] (ABNORMAL) Tacrolimus, B (10/24/2021 9:00 AM CDT) [...] its performa nce characteristics determined by [facility] in a manner consistent with CLIA requirements. This test has not been cleared or approved by the U.S. Mer d and Drug Administration. Specimen Anatomical Collection Method Collection Time Receive d Time (Source) Location / / Volume Laterality Blood (Blood, 10/24/2021 9:00 AM 10/26/19 22 7:15 Venous) CDT AM CDT Trung Plasencia P.A.-C. MThomas LAB BLOOD NON ADD-ON Performing Organization Address [facility] Phon e Number [address] [place] [place] [address] [facility] [place] [address] Laboratory Medicine and Pathology [address] [place] [address] Dr. MURILLO (ABNORMAL) CMV DNA Detect / Quant, Plasma (10/24/2021 9:00 AM CDT) [facility] Method Time Signature CMV DNA 146 (A) Undetected 10/25/2021 [facility] Detect/Quant, IU/mL 5:16 PM CDT P Comment: Result in log IU/mL is 2.16. ----ADDITIONAL INFORMATION---- The quantification range of this assay i s 35 to 10,000,000 IU/mL (1.54 log to 7.00 log IU/mL). Testing was performed u sing the tika CMV test ([employer] with the tika [id number] System. Specimen Anatomical Collection Method Collection Time Receive d Time (Source) Location / / Volume Laterality Blood (Blood, 10/24/2021 9:00 AM 10/26/19 22 7:23 Venous) CDT AM CDT Trung Plasencia P.A.-C. MDemetriusSDemetrius LAB MICROBIOLOGY - BLOOD O RDERABLES Performing Organization Address [facility] Phon e Number [address] [place] [address] [address] [facility] [place] [address] Laboratory Medicine and Pathology [address] [place] [address] Dr. MURILLO (ABNORMAL) Comprehensive Metabolic Panel (10/24/2021 9:00 AM CDT) Analysis Performed At Patho logist Time Signature Potassium, P 3.4 (L) [...] eGFR-Black/Afri 17 (L) >=60 10/24/2021 CNFL can [place] mL/min/BSA 9:26 AM CDT Comment: ----ADDITIONAL INFORMATION---- Estimated GFR calculated using the 2009 CKD_EPI creatinine equation. eGFR Non-Black/ <15 (L) >=60 mL/min/BSA 10/24/2021 9:26 AM CDT CNFL [place] Comment: ----ADDITIONAL INFORMATION---- Estimated GFR calculated using [...] Address City/State/ZIP Code Phon e Number [address] [address] [place] [address] System in [address] (ABNORMAL) CBC without Differential (10/24/2021 9:00 AM CDT) [facility] Method Time Signature Hemoglobin 10.2 [...] M.S. LAB BLOOD ADD-ON Performing Organization Address City/[facility] Phon e Number [address] [address] [place] [address] System in [address] (ABNORMAL) Glucose, Fasting (10/24/2021 8:57 AM [...] LAB BLOOD NON ADD-ON Performing Organization Address [facility] Phon e Number [address] [address] [place] [address] System in [address] (ABNORMAL) Tacrolimus, B (10/17/2021 8:38 AM CDT) athologist Signature Tacrolimus, B 1.5 [...] its performa nce characteristics determined by [facility] in a manner consistent with CLIA requirements. This test has not been cleared or approved by the U.S. Mer d and Drug Administration. Specimen Anatomical Collection Method Collection Time Receive d Time (Source) Location / / Volume Laterality Blood (Blood, 10/17/2021 8:38 AM 10/19/19 7:11 Venous) CDT AM CDT Trung Plaesncia P.A.-C. MDemetriusSDemetrius LAB BLOOD NON ADD-ON Performing Organization Address City/[facility] Phon e Number [facility] [address] [place] [address] Dr [place] [address] [address] [facility] [place] [address] Laboratory Medicine and Pathology [address] [place] [address] Dr. MURILLO (ABNORMAL) CMV DNA Detect / Quant, Plasma (10/17/2021 8:38 AM CDT) [facility] gist Method Time Signature CMV DNA 545 (A) Undetected 10/18/2021 [facility] Detect/Quant, IU/mL 2:26 AM CDT P Comment: Result in log IU/mL is 2.74. ----ADDITIONAL INFORMATION---- The quantification range of this assay i s 35 to 10,000,000 IU/mL (1.54 log to 7.00 log IU/mL). Testing was performed u sing the tika CMV test ([employer] with the tika [id number] System. Specimen Anatomical Collection Method Collection Time Receive d Time (Source) Location / / Volume Laterality Blood (Blood, 10/17/2021 8:38 AM 10/18/19 22 8:21 Venous) CDT PM CDT Trung Plasencia P.A.-C., M.S. LAB MICROBIOLOGY - BLOOD O RDERABLES Performing Organization Address City/[facility] Phon e Number [facility] [address] [place], [place] [address] SUPPORT [facility] [place] [address] Laboratory Medicine and Pathology [address] [place] [address] Dr. MURILLO (ABNORMAL) Glucose, Fasting (10/17/2021 8:38 AM CDT) athologist Signature Glucose, P 108 (H) 70 - 100 10/17/2021 CNFL mg/dL 9:05 AM CDT Last Intake 7 hr 10/17/2021 CNFL 8:38 AM CDT Specimen Anatomical Collection Method Collection Time Receive d Time (Source) Location / / Volume Laterality Blood (Blood, 10/17/2021 8:38 AM 10/18/19 8:41 Venous) CDT AM CDT Trung Plasencia P.A.-C. M.S. LAB BLOOD NON ADD-ON Performing Organization Address City/State/ZIP Code Phon e Number [facility]- [address] [place] [address] [place] [address] System in [address] (ABNORMAL) Comprehensive Metabolic Panel (10/17/2021 8:38 [...] eGFR-Black/Afri 18 (L) >=60 10/17/2021 CNFL can [place] mL/min/BSA 9:07 AM CDT Comment: ----ADDITIONAL INFORMATION---- Estimated GFR calculated using the 2009 CKD_EPI creatinine equation. eGFR Non-Black/ 15 (L) >=60 mL/min/BSA 10/17/2021 9:07 AM CDT CNFL [place] Comment: ----ADDITIONAL INFORMATION---- Estimated GFR calculated using [...] M.S. LAB BLOOD ADD-ON Performing Organization Address City/State/[facility] Code Phon e Number [address] [place] [address] System in [address] (ABNORMAL) CBC without Differential (10/17/2021 8:38 AM CDT) [facility] gist Method Time Signature Hemoglobin 8.9 (L) 13.2 [...] M.S. LAB BLOOD ADD-ON Performing Organization Address [facility] Phon e Number [address] [address] [place] [address] System in [address] (ABNORMAL) Glucose, Fasting (10/10/2021 9:36 AM CDT) P athologist Signature Glucose, P 278 (H) 70 - 100 10/10/2021 CNFL mg/dL 9:56 AM CDT Last Intake 1 hr 10/10/2021 CNFL 9:36 AM CDT Specimen Anatomical Collection Method Collection Time Receive d Time (Source) Location / / Volume Laterality Blood (Blood, 10/10/2021 9:36 AM 10/11/19 9:38 Venous) CDT AM CDT Trung Plasencia P.A.-C., M.S. LAB BLOOD NON ADD-ON Performing Organization Address [facility] Phon e Number [address] [address] [place] [address] System [address] (ABNORMAL) Tacrolimus, B (10/10/2021 9:35 AM CDT) P athologist Signature Tacrolimus, B 2.5 (L) 5.0-15.0 10/11/2021 [facility] (Trough) 10:30 AM CDT ng/mL Comment: ----ADDITIONAL [...] its performa nce characteristics determined by [facility] in a manner consistent with CLIA requirements. This test has not been cleared or approved by the U.S. Mer d and Drug Administration. Specimen Anatomical Collection Method Collection Time Receive d Time (Source) Location / / Volume Laterality Blood (Blood, 10/10/2021 9:35 AM 10/12/19 7:11 Venous) CDT AM CDT Trung Plasencia P.A.-C. M.S. LAB BLOOD NON ADD-ON Performing Organization Address City/State/ZIP Code Phon e Number [facility] [address] [place] [address] [facility] [place] [address] Laboratory Medicine and Pathology [address] MURILLO (ABNORMAL) CMV DNA Detect / Quant, Plasma (10/10/2021 9:35 AM CDT) [facility] Method Time Signature CMV DNA 2170 (A) Undetected 10/11/2021 [facility] Detect/Quant, IU/mL 11:53 AM CDT P Comment: Result in log IU/mL is 3.34. ----ADDITIONAL INFORMATION---- The quantification range of this assay i s 35 to 10,000,000 IU/mL (1.54 log to 7.00 log IU/mL). Testing was performed u sing the tika CMV test ([employer] with the tika 6800 System. Specimen Anatomical Collection Method Collection Time Receive d Time (Source) Location / / Volume Laterality Blood (Blood, 10/10/2021 9:35 AM 10/11/19 22 8:00 Venous) CDT PM CDT Trung Plasencia P.A.-C. M.S. LAB MICROBIOLOGY - BLOOD O RDERABLES Performing Organization Address City/State/ZIP Code Phon e Number [facility] [address] [place], [place] [address] SUPPORT CENTER [facility] [place] [address] Laboratory Medicine and Pathology [address] MURILLO (ABNORMAL) Comprehensive Metabolic Panel (10/10/2021 [...] eGFR-Black/Afri 36 (L) >=60 10/10/2021 CNFL can [place] mL/min/BSA 10:00 AM CDT Comment: ----ADDITIONAL INFORMATION---- Estimated GFR calculated using the 2009 CKD_EPI creatinine equation. eGFR Non-Black/ 31 (L) >=60 mL/min/BSA 10/10/2021 10:00 AM CDT CNFL [place] Comment: ----ADDITIONAL INFORMATION---- Estimated GFR calculated using [...] M.S. LAB BLOOD ADD-ON Performing Organization Address City/State/[facility] Code Phon e Number [id number] [place] [address] [place] [address] System [address] (ABNORMAL) CBC without Differential (10/10/2021 9:35 AM CDT) [facility] Method Time Signature Hemoglobin 9.8 (L) [...] Blood (Blood, 10/10/2021 9:35 AM 10/11/19 22 9:38 Venous) CDT AM CDT Trung Plasencia P.A.-C., M.S. LAB BLOOD ADD-ON Performing Organization Address City/[facility]/ZIP Code Phon e Number [address] [address] [place] [address] System in [address] (ABNORMAL) Tacrolimus, B (10/03/2021 8:37 AM CDT) athologist Signature Tacrolimus, B 1.7 (L) 5.0-15.0 10/04/2021 [facility] (Trough) 11:04 AM CDT ng/mL Comment: [...] its performa nce characteristics determined by [facility] in a manner consistent with CLIA [...] Address City/State/ZIP Code Phon e Number [facility] [address] [place], [place] [address] [place] [address] [place] [address] Laboratory Medicine and Pathology [address] MURILLO (ABNORMAL) CMV DNA Detect / Quant, Plasma (10/03/2021 8:37 AM CDT) Patholo gist Method Time Signature CMV DNA 158 (A) Undetected 10/04/2021 [facility] Detect/Quant, IU/mL 2:04 PM CDT P Comment: Result in log IU/mL is 2.20. ----ADDITIONAL INFORMATION---- The quantification range of this assay i s 35 to 10,000,000 IU/mL (1.54 log to 7.00 log IU/mL). Testing was performed u sing the tika CMV test ([employer] with the tika PhotoBox0 System. Specimen Anatomical Collection Method Collection Time Receive d Time (Source) Location / / Volume Laterality Blood (Blood, 10/03/2021 8:37 AM 10/04/19 8:56 Venous) CDT PM CDT Trung Plasencia P.A.-C., M.S. LAB MICROBIOLOGY - BLOOD O RDERABLES Performing Organization Address City/State/ZIP Code Phon e Number [facility] [address] [place] [address] SU[address] [facility] [place] [address] Laboratory Medicine and Pathology [address] MURILLO (ABNORMAL) Glucose, Fasting (10/03/2021 8:37 [...] LAB BLOOD NON ADD-ON Performing Organization Address City/[facility]/ZIP Code Phon e Number [address] [address] [place] [address] System [address] (ABNORMAL) Comprehensive Metabolic Panel (10/03/2021 8:37 [...] eGFR-Black/Afri 18 (L) >=60 10/03/2021 CNFL can [place] mL/min/BSA 9:00 AM CDT Comment: ----ADDITIONAL INFORMATION---- Estimated GFR calculated using the 2009 CKD_EPI creatinine equation. eGFR Non-Black/ 16 (L) >=60 mL/min/BSA 10/03/2021 9:00 AM CDT CNFL [place] Comment: ----ADDITIONAL INFORMATION---- Estimated GFR calculated using [...] City/State/ZIP Code Phon e Number [facility]- [address] [place] [address] [place] [address] System in [address] (ABNORMAL) CBC without Differential (10/03/2021 8:37 AM CDT) [facility] Method Time Signature Hemoglobin 9.6 (L) [...] M.S. LAB BLOOD ADD-ON Performing Organization Address City/[facility]/ZIP Code Phon e Number [facility]- [address] [place] [address] [place] [address] [place] [address] System in [address] (ABNORMAL) Tacrolimus, B (09/27/2021 10:37 AM CDT) P athologist Signature Tacrolimus, B 1.4 (L) 5.0-15.0 09/28/2021 [facility] (Trough) 12:36 PM CDT ng/mL Comment: ----ADDITIONAL [...] its performa nce characteristics determined by [facility] in a manner consistent with CLIA requirements. This test has not been cleared or approved by the U.S. Mer d and Drug Administration. Specimen Anatomical Collection Method Collection Time Receive d Time (Source) Location / / Volume Laterality Blood (Blood, 09/27/2021 10:37 09/28/2021 7:39 Venous) AM CDT AM CDT Trung Plasencia P.A.-C., M.S. LAB BLOOD NON ADD-ON Performing Organization Address City/[facility]/ZIP Code Phon e Number [facility] [address] [place], [place] [address] [facility] [place] [address] Laboratory Medicine and Pathology [address] MURILLO (ABNORMAL) CMV DNA Detect / Quant, Plasma (09/27/2021 10:37 AM CDT) Patholo gist Method Time Signature CMV DNA <35 (A) Undetected 09/28/2021 [facility] Detect/Quant, IU/mL 8:13 PM CDT P Comment: [...] u sing the tika CMV test ([employer] with the tika [id number] System. Specimen Anatomical Collection Method Collection Time Receive d Time (Source) Location / / Volume Laterality Blood (Blood, 09/27/2021 10:37 09/28/2021 7:09 Venous) AM CDT AM CDT Trung Plasencia P.A.-C., M.S. LAB MICROBIOLOGY - BLOOD O RDERABLES Performing Organization Address City/[facility] Code Phon e Number [facility] [address] [place], [place] [address] [place], [place] [address]t. [place] [address] Laboratory Medicine and Pathology [address] [place] [address] Dr. MURILLO (ABNORMAL) Glucose, Fasting (09/27/2021 10:37 [...] LAB BLOOD NON ADD-ON Performing Organization Address City/[facility] Code Phon e Number [address] [address] [place] [address] System [address] (ABNORMAL) Comprehensive Metabolic Panel (09/27/2021 10:37 [...] eGFR-Black/Afri 20 (L) >=60 09/27/2021 CNFL can [place] mL/min/BSA 10:58 AM CDT Comment: ----ADDITIONAL INFORMATION---- Estimated GFR calculated using the 2009 CKD_EPI creatinine equation. eGFR Non-Black/ 17 (L) >=60 mL/min/BSA 09/27/2021 10:58 AM CDT CNFL [place] Comment: ----ADDITIONAL INFORMATION---- Estimated GFR calculated using [...] M.S. LAB BLOOD ADD-ON Performing Organization Address [facility] Phon e Number [address] [address] [place] [address] System in [address] (ABNORMAL) CBC without Differential (09/27/2021 10:37 AM CDT) [facility] gist Method Time Signature Hemoglobin 10.7 [...] M.S. LAB BLOOD ADD-ON Performing Organization Address [facility] Phon e Number [address] [address] [place] [address] System [address] (ABNORMAL) Glucose, Fasting (09/19/2021 8:40 AM CDT) [...] City/State/ZIP Code Phon e Number [facility]- [address] [place] [address] [place] [address] System [address] (ABNORMAL) CBC without Differential (09/19/2021 8:40 [...] MDemetriusS. LAB BLOOD ADD-ON Performing Organization Address City/State/[facility] Code Phon e Number [facility]- [address] [place] [address] [place] [address] [address] (ABNORMAL) Tacrolimus, B (09/19/2021 8:39 AM CDT) athologist Signature Tacrolimus, B 1.5 (L) 5.0-15.0 09/20/2021 [facility] (Trough) 11:46 AM CDT ng/mL Comment: ----ADDITIONAL [...] its performa nce characteristics determined by [facility] in a manner consistent with CLIA [...] Address City/State/ZIP Code Phon e Number [facility] [address] [place], [place] [address] SUPPORT CENTER [facility] [place] [address] Laboratory Medicine and Pathology [address] [place]ILL[place] (ABNORMAL) CMV DNA Detect / Quant, Plasma (09/19/2021 8:39 AM CDT) Patholo gist Method Time Signature CMV DNA <35 (A) Undetected 09/20/2021 SDS Detect/Quant, IU/mL 12:59 AM CDT P Comment: [...] u sing the tika CMV test ([employer] with the tika [id number] System. Specimen Anatomical Collection Method Collection Time Receive d Time (Source) Location / / Volume Laterality Blood (Blood, 09/19/2021 8:39 AM 09/20/19 7:56 Venous) CDT PM CDT Trung Plasencia P.A.-C., M.S. LAB MICROBIOLOGY - BLOOD O RDERABLES Performing Organization Address City/State/ZIP Code Phon e Number [facility] [address] [place], [place] [address] SUPPORT CENTER [facility] [place] [address] Laboratory Medicine and Pathology [address] [...] eGFR-Black/Afri 17 (L) >=60 09/19/2021 CNFL can [place] mL/min/BSA 9:14 AM CDT Comment: ----ADDITIONAL INFORMATION---- Estimated GFR calculated using the 2009 CKD_EPI creatinine equation. eGFR Non-Black/ <15 (L) >=60 mL/min/BSA 09/19/2021 9:14 AM CDT CNFL [place] Comment: ----ADDITIONAL INFORMATION---- Estimated GFR calculated using [...] City/State/ZIP Code Phon e Number [facility]- [address] [place] [address] [place] [address] [place] [address] System in [place] [address] [address] (ABNORMAL) Tacrolimus, B (09/12/2021 8:35 AM CDT) athologist Signature Tacrolimus, B 1.6 (L) 5.0-15.0 2021 [facility] (Trough) 10:37 AM CDT ng/mL Comment: ----ADDITIONAL [...] its performa nce characteristics determined by [facility] in a manner consistent with CLIA [...] Address City/State/ZIP Code Phon e Number [facility] [address] [place] [address] [place] [address] Laboratory Medicine and Pathology [address] [place] CMV DNA Detect / Quant, Plasma (09/12/2021 8:35 AM CDT) [facility] Method Time Signature CMV DNA Undetected Undetected 2021 [facility] Detect/Quant, IU/mL 2:23 PM CDT P Comment: Result in log IU/mL is Undetected. ----ADDITIONAL INFORMATION---- The quantification range of this assay i s 35 to 10,000,000 IU/mL (1.54 log to 7.00 log IU/mL). Testing was performed u sing the tika CMV test ([employer] with the tika PhotoBox[employer] System. Specimen Anatomical Collection Method Collection Time Receive d Time (Source) Location / / Volume Laterality Blood (Blood, 09/12/2021 8:35 AM 09/14/19 22 7:13 Venous) CDT AM CDT Trung Plasencia P.A.-C., M.S. LAB MICROBIOLOGY - BLOOD O RDERABLES Performing Organization Address City/State/ZIP Code Phon e Number [facility] [address] [place], [place] [address] [place], [place] [address]t. [place] [address] Laboratory Medicine and Pathology [address] M[place]ILL[place] (ABNORMAL) Glucose, Fasting (09/12/2021 8:35 AM CDT) P athologist Signature Glucose, P 124 (H) 70 - 100 09/12/2021 CNFL mg/dL 9:04 AM CDT Last Intake 17 hr 09/12/2021 CNFL 8:37 AM CDT Specimen Anatomical Collection Method Collection Time Receive d Time (Source) Location / / Volume Laterality Blood (Blood, 09/12/2021 8:35 AM 09/13/19 8:37 Venous) CDT AM CDT Trung Plasencia P.A.-C., MDemetriusSDemetrius LAB BLOOD NON ADD-ON Performing Organization Address City/[facility] Code Phon e Number [address] [address] [place] [address] [address] (ABNORMAL) Comprehensive Metabolic Panel (09/12/2021 8:35 [...] eGFR-Black/Afri 19 (L) >=60 09/12/2021 CNFL can [place] mL/min/BSA 9:06 AM CDT Comment: ----ADDITIONAL INFORMATION---- Estimated GFR calculated using the 2009 CKD_EPI creatinine equation. eGFR Non-Black/ 16 (L) >=60 mL/min/BSA 09/12/2021 9:06 AM CDT CNFL [place] Comment: ----ADDITIONAL INFORMATION---- Estimated GFR calculated using [...] City/State/ZIP Code Phon e Number [facility]- [address] [place] [address] [place] [address] System in [address] (ABNORMAL) CBC without Differential (09/12/2021 8:35 AM CDT) Patholo gist Method Time Signature Hemoglobin 10.7 (L) [...] City/State/ZIP Code Phon e Number [facility]- [address] [place] [address] [place] [address] System in [address] (ABNORMAL) Tacrolimus, B (09/05/2021 8:24 AM CDT) P athologist Signature Tacrolimus, B [...] its performa nce characteristics determined by [facility] in a manner consistent with CLIA requirements. This test has not been cleared or approved by the U.S. Mer d and Drug Administration. Specimen Anatomical Collection Method Collection Time Receive d Time (Source) Location / / Volume Laterality Blood (Blood, 09/05/2021 8:24 AM 09/07/19 7:23 Venous) CDT AM CDT Trung Plasencia P.A.-C., M.S. LAB BLOOD NON ADD-ON Performing Organization Address City/[facility]/ZIP Code Phon e Number [facility] [address] [place], [place] [address] [place], [place] [address]. [place] [address] Laboratory Medicine and Pathology [address] [place] (ABNORMAL) Glucose, Fasting (09/05/2021 8:24 AM CDT) P athologist Signature Glucose, P 112 (H) 70 - 100 09/05/2021 CNFL mg/dL 8:49 AM CDT Last Intake 15 hr 09/05/2021 CNFL 8:24 AM CDT Specimen Anatomical Collection Method Collection Time Receive d Time (Source) Location / / Volume Laterality Blood (Blood, 09/05/2021 8:24 AM 09/06/19 8:24 Venous) CDT AM CDT Trung Plasencia P.A.-C., M.S. LAB BLOOD NON ADD-ON Performing Organization Address City/State/[facility] Code Phon e Number [address] [address] [place] [address] System in [address] (ABNORMAL) Comprehensive Metabolic Panel (09/05/2021 8:24 [...] eGFR-Black/Afri 20 (L) >=60 09/05/2021 CNFL can [place] mL/min/BSA 8:52 AM CDT Comment: ----ADDITIONAL INFORMATION---- Estimated GFR calculated using the 2009 CKD_EPI creatinine equation. eGFR Non-Black/ 17 (L) >=60 mL/min/BSA 09/05/2021 8:52 AM CDT CNFL [place] Comment: ----ADDITIONAL INFORMATION---- Estimated GFR calculated using [...] M.S. LAB BLOOD ADD-ON Performing Organization Address [facility] Phon e Number [address] [address] [place] [address] System [address] (ABNORMAL) CBC without Differential (09/05/2021 8:24 AM CDT) [facility] Method Time Signature Hemoglobin 10.6 (L) 13.2 [...] M.S. LAB BLOOD ADD-ON Performing Organization Address [facility] Phon e Number [address] [address] [place] [address] System in [place] [address] CMV DNA Detect / Quant, Plasma (09/05/2021 8:23 AM CDT) [facility] gist Method Time Signature CMV DNA Undetected Undetected 09/06/2021 [facility] Detect/Quant, IU/mL 5:49 PM CDT P Comment: Result in log IU/mL is Undetected. ----ADDITIONAL INFORMATION---- The quantification range of this assay i s 35 to 10,000,000 IU/mL (1.54 log to 7.00 log IU/mL). Testing was performed u sing the tika CMV test ([employer] with the tika PhotoBox0 System. Specimen Anatomical Collection Method Collection Time Receive d Time (Source) Location / / Volume Laterality Blood (Blood, 09/05/2021 8:23 AM 09/07/19 7:08 Venous) CDT AM CDT Trung Plasencia P.A.-C., M.S. LAB MICROBIOLOGY - BLOOD O RDERABLES Performing Organization Address City/State/ZIP Code Phon e Number [facility] [address] [place] [address] [place] [address] [facility] [place] [address] Laboratory Medicine and Pathology [address] [place] [address] Dr. [place]ILLO (ABNORMAL) Glucose, Fasting (08/29/2021 7:25 AM AIRFRAME DESIGN ENGINEER) athologist Signature Glucose, P 120 (H) 70 - 100 08/29/2021 CNFL mg/dL 7:54 AM AIRFRAME DESIGN ENGINEER Last Intake 10 hr 08/29/2021 CNFL 7:31 AM AIRFRAME DESIGN ENGINEER Specimen Anatomical Collection Method Collection Time Receive d Time (Source) Location / / Volume Laterality Blood (Blood, 08/29/2021 7:25 AM 08/30/19 7:31 Venous) AIRFRAME DESIGN ENGINEER AM AIRFRAME DESIGN ENGINEER Trung Plasencia P.A.-C., M.S. LAB BLOOD NON ADD-ON Performing Organization Address City/State/ZIP Code Phon e Number [address] [address] [place] [address] System [address] (ABNORMAL) Comprehensive Metabolic Panel (08/29/2021 7:25 AM AIRFRAME DESIGN ENGINEER) Analysis Performed At [facility] Time Signature Potassium, P 3.7 3.6 - 5.2 08/29/2021 CNFL mmol/L 7:57 AM AIRFRAME DESIGN ENGINEER Sodium, P 136 135 - 145 08/29/2021 CNFL mmol/L 7:57 AM AIRFRAME DESIGN ENGINEER Chloride, P 99 98 - 107 08/29/2021 CNFL mmol/L 7:57 AM AIRFRAME DESIGN ENGINEER Bicarbonate, P 21 (L) 22 - 29 08/29/2021 CNFL mmol/L 7:57 AM AIRFRAME DESIGN ENGINEER Anion Gap, P 16 (H) 7 - 15 08/29/2021 CNFL 7:57 AM AIRFRAME DESIGN ENGINEER BUN (Blood Urea 44 (H) 8 - 24 08/29/2021 CNFL Nitrogen), P mg/dL 7:57 AM AIRFRAME DESIGN ENGINEER Creatinine 3.72 (H) 0.74 - 08/29/2021 CNFL 1.35 mg/dL 7:57 AM AIRFRAME DESIGN ENGINEER eGFR-Black/Afri 18 (L) >=60 08/29/2021 CNFL can Gabonese mL/min/BSA 7:57 AM AIRFRAME DESIGN ENGINEER Comment: ----ADDITIONAL INFORMATION---- Estimated GFR calculated using the 2009 CKD_EPI creatinine equation. eGFR Non-Black/ 16 (L) >=60 mL/min/BSA 08/29/2021 7:57 AM AIRFRAME DESIGN ENGINEER CNFL [place] Comment: ----ADDITIONAL INFORMATION---- Estimated GFR calculated using the 2009 CKD_EPI creatinine equation. Calcium, Total, P 9.3 8.8 - 10.2 mg/dL 08/29/2021 7:57 AM AIRFRAME DESIGN ENGINEER CNFL Glucose, P CANCELED mg/dL 08/29/2021 7:31 AM AIRFRAME DESIGN ENGINEER CNFL Comment: Duplicate test request. Result canceled by the ancillary. Protein, Total, P 6.5 6.3 - 7.9 g/dL 08/29/2021 7:57 A M AIRFRAME DESIGN ENGINEER CNFL Albumin, P 4.1 3.5 - 5.0 g/dL 08/29/2021 7:57 AM AIRFRAME DESIGN ENGINEER C NFL Aspartate Aminotransferase (AST), 22 8 - 48 U/L 08/29 7:57 AM AIRFRAME DESIGN ENGINEER CNFL P Alkaline Phosphatase, P 123 40 - 129 U/L 08/29/2021 7: 57 AM AIRFRAME DESIGN ENGINEER CNFL Alanine Aminotransferase (ALT), P 19 7 - 55 U/L 08/29 7:57 AM AIRFRAME DESIGN ENGINEER CNFL Bilirubin, Total, P 0.2 <=1.2 mg/dL 08/29/2021 7:57 AM AIRFRAME DESIGN ENGINEER CNFL Specimen Anatomical Collection Method Collection Time Receive d Time (Source) Location / / Volume Laterality Blood (Blood, 08/29/2021 7:25 AM 08/30/19 22 7:31 Venous) AIRFRAME DESIGN ENGINEER AM AIRFRAME DESIGN ENGINEER Trung Plasencia P.A.-C., M.S. LAB BLOOD ADD-ON Performing Organization Address City/[facility] Phon e Number [address] [address] [place] [address] System [place] [address] (ABNORMAL) CBC without Differential (08/29/2021 7:25 AM AIRFRAME DESIGN ENGINEER) Patholo gist Method Time Signature Hemoglobin 9.9 (L) 13.2 - 08/29/2021 CNFL 16.6 g/dL 8:19 AM AIRFRAME DESIGN ENGINEER Hematocrit 30.9 (L) 38.3 - 08/29/2021 CNFL 48.6 % 8:19 AM AIRFRAME DESIGN ENGINEER Erythrocytes 3.16 (L) 4.35 - 08/29/2021 CNFL 5.65 8:19 AM AIRFRAME DESIGN ENGINEER x10(12)/L MCV 97.8 78.2 - 08/29/2021 CNFL 97.9 fL 8:19 AM AIRFRAME DESIGN ENGINEER RBC Distrib Width 13.2 11.8 - 08/29/2021 CNFL 14.5 % 8:19 AM AIRFRAME DESIGN ENGINEER Platelet Count 238 135 - 317 08/29/2021 CNFL x10(9)/L 8:19 AM AIRFRAME DESIGN ENGINEER Leukocytes 4.8 3.4 - 9.6 08/29/2021 CNFL x10(9)/L 8:19 AM AIRFRAME DESIGN ENGINEER Specimen Anatomical Collection Method Collection Time Receive d Time (Source) Location / / Volume Laterality Blood (Blood, 08/29/2021 7:25 AM 08/30/19 22 7:31 Venous) AIRFRAME DESIGN ENGINEER AM AIRFRAME DESIGN ENGINEER Trung Plasencia P.A.-C., M.S. LAB BLOOD ADD-ON Performing Organization Address City/[facility] Code Phon e Number [address] [place] [address] [place] [address] System in [address] (ABNORMAL) Tacrolimus, B (08/29/2021 7:24 AM AIRFRAME DESIGN ENGINEER) athologist Signature Tacrolimus, B 2.5 (L) 5.0-15.0 08/30/2021 [facility] (Trough) 10:56 AM AIRFRAME DESIGN ENGINEER ng/mL Comment: ----ADDITIONAL INFORMATION---- Target steady-state trough concentration s vary depending on the type of transplant, concomitant immunosuppressio n, clinical/institutional protocols, and time post-transplant. Results should be interpreted in conjunction with this clinical information and any physic al signs/symptoms of rejection/toxicity. Testing performed by Liquid Chromatograp hy-Tandem Mass Spectrometry (LC-MS/MS). This test was developed and its performa nce characteristics determined by [facility] in a manner consistent with CLIA requirements. This test has not been cleared or approved by the U.S. Mer d and Drug Administration. Specimen Anatomical Collection Method Collection Time Receive d Time (Source) Location / / Volume Laterality Blood (Blood, 08/29/2021 7:24 AM 08/31/19 7:30 Venous) AIRFRAME DESIGN ENGINEER AM AIRFRAME DESIGN ENGINEER Trung Plasencia P.A.-C., M.S. LAB BLOOD NON ADD-ON Performing Organization Address City/State/ZIP Code Phon e Number [facility] [address] [place] [address] SUPPORT [facility] [place] [address] Laboratory Medicine and Pathology [address] [place] (ABNORMAL) CMV DNA Detect / Quant, Plasma (08/29/2021 7:24 AM AIRFRAME DESIGN ENGINEER) Patholo gist Method Time Signature CMV DNA <35 (A) Undetected 08/30/2021 [facility] Detect/Quant, IU/mL 4:21 PM AIRFRAME DESIGN ENGINEER P Comment: Result in log IU/mL is [...] Laterality Blood (Blood, 08/29/2021 7:24 AM 08/30/19 8:08 Venous) AIRFRAME DESIGN ENGINEER PM AIRFRAME DESIGN ENGINEER Trung Plasencia P.A.-C. MDemetriusSDemetrius LAB MICROBIOLOGY - BLOOD O RDERABLES Performing Organization Address City/[facility] Phon e Number [facility] [address] [place] [address] Dr [place] [address] SUPPORT CENTER [facility] [place] [address] Laboratory Medicine and Pathology [address] [place] [address] Dr. [place] (ABNORMAL) Tacrolimus, B (08/22/2021 9:24 AM AIRFRAME DESIGN ENGINEER) P athologist Signature Tacrolimus, B 1.8 (L) 5.0-15.0 08/23/2021 [facility] (Trough) 12:12 PM AIRFRAME DESIGN ENGINEER ng/mL Comment: ----ADDITIONAL INFORMATION---- Target steady-state trough concentration s vary depending on the type of transplant, concomitant immunosuppressio n, clinical/institutional protocols, and time post-transplant. Results should be interpreted in conjunction with this clinical information and any physic al signs/symptoms of rejection/toxicity. Testing performed by Liquid Chromatograp hy-Tandem Mass Spectrometry (LC-MS/MS). This test was developed and its performa nce characteristics determined by [facility] in a manner consistent with CLIA requirements. This test has not been cleared or approved by the U.S. Mer d and Drug Administration. Specimen Anatomical Collection Method Collection Time Receive d Time (Source) Location / / Volume Laterality Blood (Blood, 08/22/2021 9:24 AM 08/24/19 7:22 Venous) AIRFRAME DESIGN ENGINEER AM AIRFRAME DESIGN ENGINEER Trung Plasencia P.A.-C. MDemetriusSDemetrius LAB BLOOD NON ADD-ON Performing Organization Address City/[facility] Code Phon e Number [facility] [address] [place] [phone] SUPPORT CENTER [facility] [place] [address] Laboratory Medicine and Pathology [address] [place] [address] Dr. [address] (ABNORMAL) Glucose, Fasting (08/22/2021 9:24 AM AIRFRAME DESIGN ENGINEER) P athologist Signature Glucose, P 185 (H) 70 - 100 08/22/2021 CNFL mg/dL 10:18 AM AIRFRAME DESIGN ENGINEER Last Intake 1 hr 08/22/2021 CNFL 9:45 AM AIRFRAME DESIGN ENGINEER Specimen Anatomical Collection Method Collection Time Receive d Time (Source) Location / / Volume Laterality Blood (Blood, 08/22/2021 9:24 AM 08/23/19 9:45 Venous) AIRFRAME DESIGN ENGINEER AM AIRFRAME DESIGN ENGINEER Trung Plasencia P.A.-C., M.S. LAB BLOOD NON ADD-ON Performing Organization Address City/State/ZIP Code Phon e Number [facility]- [address] [place] [address] [place] [address] System in [address] (ABNORMAL) CBC without Differential (08/22/2021 9:24 AM AIRFRAME DESIGN ENGINEER) Patholo gist Method Time Signature Hemoglobin 10.6 (L) 13.2 - 08/22/2021 CNFL 16.6 g/dL 11:51 AM AIRFRAME DESIGN ENGINEER Hematocrit 33.4 (L) 38.3 - 08/22/2021 CNFL 48.6 % 11:51 AM AIRFRAME DESIGN ENGINEER Erythrocytes 3.42 (L) 4.35 - 08/22/2021 CNFL 5.65 11:51 AM AIRFRAME DESIGN ENGINEER x10(12)/L MCV 97.7 78.2 - 08/22/2021 CNFL 97.9 fL 11:51 AM AIRFRAME DESIGN ENGINEER RBC Distrib Width 13.2 11.8 - 08/22/2021 CNFL 14.5 % 11:51 AM AIRFRAME DESIGN ENGINEER Platelet Count 272 135 - 317 08/22/2021 CNFL x10(9)/L 11:51 AM AIRFRAME DESIGN ENGINEER Leukocytes 4.8 3.4 - 9.6 08/22/2021 CNFL x10(9)/L 11:52 AM AIRFRAME DESIGN ENGINEER Specimen Anatomical Collection Method Collection Time Receive d Time (Source) Location / / Volume Laterality Blood (Blood, 08/22/2021 9:24 AM 08/23/19 9:45 Venous) AIRFRAME DESIGN ENGINEER AM AIRFRAME DESIGN ENGINEER Trung Plasencia P.A.-C., M.S. LAB BLOOD ADD-ON Performing Organization Address City/[facility]/ZIP Code Phon e Number [address] [address] [place] [address] System [address] CMV DNA Detect / Quant, Plasma (08/22/2021 9:23 AM AIRFRAME DESIGN ENGINEER) [facility] Method Time Signature CMV DNA Undetected Undetected 08/23/2021 [facility] Detect/Quant, IU/mL 5:30 PM AIRFRAME DESIGN ENGINEER P Comment: Result in log IU/mL is Undetected. ----ADDITIONAL INFORMATION---- The quantification range of this assay i s 35 to 10,000,000 IU/mL (1.54 log to 7.00 log IU/mL). Testing was performed u sing the tika CMV test ([employer] with the tika 6800 System. Specimen Anatomical Collection Method Collection Time Receive d Time (Source) Location / / Volume Laterality Blood (Blood, 08/22/2021 9:23 AM 08/24/19 7:14 Venous) AIRFRAME DESIGN ENGINEER AM AIRFRAME DESIGN ENGINEER Trung Plasencia P.A.-C. MThomas LAB MICROBIOLOGY - BLOOD O RDERABLES Performing Organization Address City/[facility]/ZIP Code Phon e Number [facility] [address] [place], [place] [address] [facility] [place] [address] Laboratory Medicine and Pathology [address] [place] [address] Dr. [place] (ABNORMAL) Comprehensive Metabolic Panel (08/22/2021 9:23 AM AIRFRAME DESIGN ENGINEER) Analysis Performed At [facility] logist Time Signature Potassium, P 3.9 3.6 - 5.2 08/22/2021 CNFL mmol/L 10:22 AM AIRFRAME DESIGN ENGINEER Sodium, P 131 (L) 135 - 145 08/22/2021 CNFL mmol/L 10:22 AM AIRFRAME DESIGN ENGINEER Chloride, P 96 (L) 98 - 107 08/22/2021 CNFL mmol/L 10:22 AM AIRFRAME DESIGN ENGINEER Bicarbonate, P 22 22 - 29 08/22/2021 CNFL mmol/L 10:22 AM AIRFRAME DESIGN ENGINEER Anion Gap, P 13 7 - 15 08/22/2021 CNFL 10:22 AM AIRFRAME DESIGN ENGINEER BUN (Blood Urea 40 (H) 8 - 24 08/22/2021 CNFL Nitrogen), P mg/dL 10:22 AM AIRFRAME DESIGN ENGINEER Creatinine 3.71 (H) 0.74 - 08/22/2021 CNFL 1.35 mg/dL 10:22 AM AIRFRAME DESIGN ENGINEER eGFR-Black/Afri 18 (L) >=60 08/22/2021 CNFL can [place]e mL/min/BSA 10:22 AM AIRFRAME DESIGN ENGINEER Comment: ----ADDITIONAL INFORMATION---- Estimated GFR calculated using the 2009 CKD_EPI creatinine equation. eGFR Non-Black/ 16 (L) >=60 mL/min/BSA 08/22/2021 10:22 AM AIRFRAME DESIGN ENGINEER CNFL [place] Comment: ----ADDITIONAL INFORMATION---- Estimated GFR calculated using the 2009 CKD_EPI creatinine equation. Calcium, Total, P 9.0 8.8 - 10.2 mg/dL 08/22/2021 10:2 2 AM AIRFRAME DESIGN ENGINEER CNFL Glucose, P CANCELED mg/dL 08/22/2021 9:45 AM AIRFRAME DESIGN ENGINEER CNFL Comment: Duplicate test request. Result canceled by the ancillary. Protein, Total, P 6.7 6.3 - 7.9 g/dL 08/22/2021 10:22 AM AIRFRAME DESIGN ENGINEER CNFL Albumin, P 4.1 3.5 - 5.0 g/dL 08/22/2021 10:22 AM AIRFRAME DESIGN ENGINEER CNFL Aspartate Aminotransferase (AST), 25 8 - 48 U/L 08/22 10:22 AM AIRFRAME DESIGN ENGINEER CNFL P Alkaline Phosphatase, P 121 40 - 129 U/L 08/22/2021 10 :22 AM AIRFRAME DESIGN ENGINEER CNFL Alanine Aminotransferase (ALT), P 20 7 - 55 U/L 08/22 10:22 AM AIRFRAME DESIGN ENGINEER CNFL Bilirubin, Total, P 0.2 <=1.2 mg/dL 08/22/2021 10:22 A M AIRFRAME DESIGN ENGINEER CNFL Specimen Anatomical Collection Method Collection Time Receive d Time (Source) Location / / Volume Laterality Blood (Blood, 08/22/2021 9:23 AM 08/23/19 9:45 Venous) AIRFRAME DESIGN ENGINEER AM AIRFRAME DESIGN ENGINEER Trung Plasencia P.A.-C., M.S. LAB BLOOD ADD-ON Performing Organization Address City/State/ZIP Code Phon e Number [facility]- [address] [facility] [place] [address] System in [address] IR PICC Line Removal (08/14/2021 10:34 AM AIRFRAME DESIGN ENGINEER) Anatomical Region Laterality Modality Chest, Pelvis, Abdomen, Vascular Interventional RST LOS, N/A X-Ray Angiography Vascular Interventional ARZ LOS, Vascular Interventional FLA LOS Specimen (Source) Anatomical Collection Method Collection Time Re ceived Time Location / / Volume Laterality 08/14/2021 2:18 PM AIRFRAME DESIGN ENGINEER Impressions 08/14/2021 2:20 PM AIRFRAME DESIGN ENGINEER Successful removal of left internal jugular vein tunneled PICC line NR Narrative 08/14/2021 2:20 PM AIRFRAME DESIGN ENGINEER EXAM: IR PICC LINE REMOVAL CLINICAL HISTORY: [...] medical records. Procedure Note Mayra Infante P.A.-C., P.A., M.S. - 08/14/2021 EXAM: IR PICC LINE REMOVAL [...] tunneled PICC line NR Trung Plasencia P.A.-C., M.S. IMG IR PROCEDURES (ABNORMAL) Glucose, Fasting (08/14/2021 8:21 AM AIRFRAME DESIGN ENGINEER) athologist Signature Glucose, P 196 (H) 70 - 100 08/14/2021 DTL mg/dL 9:34 AM AIRFRAME DESIGN ENGINEER Last Intake 1 hr 08/14/2021 DTL 8:57 AM AIRFRAME DESIGN ENGINEER Specimen Anatomical Collection Method Collection Time Receive d Time (Source) Location / / Volume Laterality Blood (Blood, 08/14/2021 8:21 AM 08/14/19 8:57 Venous) AIRFRAME DESIGN ENGINEER AM AIRFRAME DESIGN ENGINEER Trnug Plasencia P.A.-C., M.S. LAB BLOOD NON ADD-ON Performing Organization Address City/State/ZIP Code Phon e Number [facility] - [address] [place], [place] [address] [facility] [place] [address] [facility] [address] (ABNORMAL) Tacrolimus, B (08/14/2021 8:20 AM AIRFRAME DESIGN ENGINEER) athologist Signature Tacrolimus, B 4.0 (L) 5.0-15.0 08/14/2021 [facility] (Trough) 12:27 PM AIRFRAME DESIGN ENGINEER ng/mL Comment: ----ADDITIONAL INFORMATION---- Target steady-state trough concentration s vary depending on the type of transplant, concomitant immunosuppressio n, clinical/institutional protocols, and time post-transplant. Results should be interpreted in conjunction with this clinical information and any physic al signs/symptoms of rejection/toxicity. Testing performed by Liquid Chromatograp hy-Tandem Mass Spectrometry (LC-MS/MS). This test was developed and its performa nce characteristics determined by [facility] in a manner consistent with CLIA requirements. This test has not been cleared or approved by the U.S. Mer d and Drug Administration. Specimen Anatomical Collection Method Collection Time Receive d Time (Source) Location / / Volume Laterality Blood (Blood, 08/14/2021 8:20 AM 08/14/19 9:44 Venous) AIRFRAME DESIGN ENGINEER AM AIRFRAME DESIGN ENGINEER Trung Plasencia P.A.-C., M.S. LAB BLOOD NON ADD-ON Performing Organization Address [facility] Phon e Number [facility] [address] [place], [place] [address] [facility] [place] [address] Laboratory Medicine and Pathology [address] [place] [address] Dr. [place] CMV DNA Detect / Quant, Plasma (08/14/2021 8:20 AM AIRFRAME DESIGN ENGINEER) [facility] Method Time Signature CMV DNA Undetected Undetected 08/14/2021 [facility] Detect/Quant, IU/mL 9:53 PM AIRFRAME DESIGN ENGINEER P Comment: Result in log IU/mL is [...] Blood (Blood, 08/14/2021 8:20 AM 08/14/19 Venous) AIRFRAME DESIGN ENGINEER 11:07 AM AIRFRAME DESIGN ENGINEER Trung Plasencia P.A.-C., M.S. LAB MICROBIOLOGY - BLOOD O RDERABLES Performing Organization Address [facility] Phon e Number [facility] [address] [place] [address] SUPPORT CENTER [facility] [place] [address] Laboratory Medicine and Pathology [address] [place] (ABNORMAL) Comprehensive Metabolic Panel (08/14/2021 8:20 AM AIRFRAME DESIGN ENGINEER) Analysis Performed At Patho logist Time Signature Potassium, S 3.9 3.6 - 5.2 08/14/2021 DTL mmol/L 9:27 AM AIRFRAME DESIGN ENGINEER Sodium, S 130 (L) 135 - 145 08/14/2021 DTL mmol/L 9:27 AM AIRFRAME DESIGN ENGINEER Chloride, S 95 (L) 98 - 107 08/14/2021 DTL mmol/L 9:27 AM AIRFRAME DESIGN ENGINEER Bicarbonate, S 22 22 - 29 08/14/2021 DTL mmol/L 9:27 AM AIRFRAME DESIGN ENGINEER Anion Gap 13 7 - 15 08/14/2021 DTL 9:27 AM AIRFRAME DESIGN ENGINEER BUN (Blood Urea 27 (H) 8 - 24 08/14/2021 DTL Nitrogen), S mg/dL 9:27 AM AIRFRAME DESIGN ENGINEER Creatinine 3.05 (H) 0.74 - 08/14/2021 DTL 1.35 mg/dL 9:27 AM AIRFRAME DESIGN ENGINEER eGFR-Non 20 (L) >=60 08/14/2021 DTL Black/ mL/min/BSA 9:27 AM AIRFRAME DESIGN ENGINEER Gabonese Comment: ----ADDITIONAL INFORMATION---- Estimated GFR calculated using the 2009 CKD_EPI creatinine equation. eGFR-Black/ 23 (L) >=60 mL/min/BSA 2021 9:27 AM AIRFRAME DESIGN ENGINEER DTL Comment: ----ADDITIONAL INFORMATION---- Estimated GFR calculated using the 2009 CKD_EPI creatinine equation. Calcium, Total, S 8.6 (L) 8.8 - 10.2 mg/dL 08/14/2021 9:27 AM AIRFRAME DESIGN ENGINEER DTL Glucose, S CANCELED mg/dL 08/14/2021 9:04 AM AIRFRAME DESIGN ENGINEER DTL Comment: Duplicate test request. Result canceled by the ancillary. Protein, Total, S 6.1 (L) 6.3 - 7.9 g/dL 08/14/2021 9:27 A M AIRFRAME DESIGN ENGINEER DTL Albumin, S 3.8 3.5 - 5.0 g/dL 08/14/2021 9:27 AM AIRFRAME DESIGN ENGINEER D TL Aspartate Aminotransferase 17 8 - 48 U/L 08/14/2021 9 :27 AM AIRFRAME DESIGN ENGINEER DTL (AST), S Alkaline Phosphatase, S 119 40 - 129 U/L 08/14/2021 9: 27 AM AIRFRAME DESIGN ENGINEER DTL Alanine Aminotransferase (ALT), 14 7 - 55 U/L 022 9:27 AM AIRFRAME DESIGN ENGINEER DTL S Bilirubin, Total, S 0.4 <=1.2 mg/dL 08/14/2021 9:27 AM AIRFRAME DESIGN ENGINEER DTL Specimen Anatomical Collection Method Collection Time Receive d Time (Source) Location / / Volume Laterality Blood (Blood, 08/14/2021 8:20 AM 08/14/19 9:04 Venous) AIRFRAME DESIGN ENGINEER AM AIRFRAME DESIGN ENGINEER Trung Plasencia P.A.-C., M.S. LAB BLOOD ADD-ON Performing Organization Address City/State/[facility] Code Phon e Number [facility] - [address] [place] [address] [facility] [place] [address] [facility] [address] [facility] (ABNORMAL) CBC without Differential (08/14/2021 8:20 AM AIRFRAME DESIGN ENGINEER) [facility] gist Method Time Signature Hemoglobin 9.6 (L) 13.2 - 08/14/2021 DTL 16.6 g/dL 8:59 AM AIRFRAME DESIGN ENGINEER Hematocrit 30.3 (L) 38.3 - 08/14/2021 DTL 48.6 % 8:59 AM AIRFRAME DESIGN ENGINEER Erythrocytes 3.10 (L) 4.35 - 08/14/2021 DTL 5.65 8:59 AM AIRFRAME DESIGN ENGINEER x10(12)/L MCV 97.7 78.2 - 08/14/2021 DTL 97.9 fL 8:59 AM AIRFRAME DESIGN ENGINEER RBC Distrib Width 14.5 11.8 - 08/14/2021 DTL 14.5 % 8:59 AM AIRFRAME DESIGN ENGINEER Platelet Count 282 135 - 317 08/14/2021 DTL x10(9)/L 8:59 AM AIRFRAME DESIGN ENGINEER Leukocytes 7.4 3.4 - 9.6 08/14/2021 DTL x10(9)/L 8:59 AM AIRFRAME DESIGN ENGINEER Specimen Anatomical Collection Method Collection Time Receive d Time (Source) Location / / Volume Laterality Blood (Blood, 08/14/2021 8:20 AM 08/14/19 8:41 Venous) AIRFRAME DESIGN ENGINEER AM AIRFRAME DESIGN ENGINEER Trung Plasencia P.A.-C., M.S. LAB BLOOD ADD-ON Performing Organization Address City/State/ZIP Code Phon e Number [facility] - [address] [place], [place] [address] [facility] [place] [address] [facility] [address] documented in this encounter Visit Diagnoses Diagnosis Transplant Liver (HCC) - Primary Medication Therapy Correction Not Anticoa gulant Colitis Cytomegalovirus (HCC) Transplant Liver (HCC) Medication Therapy Chief Compressor Station Engineer Not Anticoa gulant Colitis Cytomegalovirus (HCC) documented in this encounter Additional Health Concerns Assessment Noted Time PHQ-9 Depression Total Score: 4 11/28/2020 10:17 AM CD T documented as of this encounter Care Teams Damper Worker Relationship Specialty Start Date End Date Elsewhere, Pcp PCP - General Family Medicine 07/29/17 [facility] - Laboratory Medicine 04/12/20 [place] [id number] documented as of this encounter
--- OUTSIDE RECORDS SUMMARY | 2022-04-13 12:07 | XMS_ITS | Encounter Summary ---
:1955 Author Organization [facility] Address [address] [place] [address] Care Team Providers Name Role Phone Elsewhere, Pcp Primary Care Provider Unavailable Reason for Visit Outpatient (Routine) - Closed Specialty Diagnoses / Procedures Referred By Contact Refer red To Contact Otorhinolaryngology Toro Pena M.D . [facility] [address] [place] [phone] Referral ID Status Reason Start Date Expiration Date Visits Requ ested Visits Authorized [id number] Closed 07/03/2021 07/03/2022 1 1 Encounter Details Date Type Department Care Team Description 07/31/2021 Office Visit Department of Toro Pena Rhinosinusiti s Otorhinolaryngology samm Galvan M.D. 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 - 07/31/2021 8:00 AM CST History of Present Illness: is a 65 y.o. male with a history of chronic rhinosinusitis. He presents today for his first postoperative visit s/p ESS and bilateral inferior turbinate reductions on 07/26/2021. He was started on doxycycline 07/26/21 and switched to bactrim yesterday, by Trung Plasencia (07/30/21) due to culture results following surgery. The patient has been using twice daily budesonide rinses. PRE-OPERATIVE DIAGNOSIS 1. Chronic rhinosinusitis. 2. Nasal [...] and debrided with a 30 degree endoscope. Crusts and debris were removed wereremoved from the anterior nasal chambers with a suction and Alligator forceps. The middle turbinateswere in good position. Crusts and dissolvable packing materials were removed from the middle meatus,maxillary sinus, sphenoid sinus, frontal recess, and ethmoid cavities bilaterally. The maxillary, sphenoid, ethmoid and frontal sinuses were patent bilaterally. Mild edema in bilateral ethmoid sinuses.No mucus, pus or polyps were noted. There is no CSF leak. The sinuses are healing appropriately. The patient tolerated the procedure well and there were no complications. Propel stents in bilateral frontal sinuses [facility] Endoscopic Scoring System RIGHT LEFT POLYPS [...] transplant #5 Chronic kidney disease on dialysis therapy Plan: It was a pleasure to see this patient back in follow-up today. Overall, he appears to be healing well. He will continue to rinse twice per day with budesonide. He is completing his antibiotics at the direction of his post transplant infectious disease team. We will see him back as scheduled in approximately 1 month. Toro Pena MD [facility] Department of Otorhinolaryngology - Head & Neck Surgery /SENIOR RESEARCH ASSOCIATE documented in this encounter Plan of Treatment Upcoming Encounters Date Type Specialty Care Team Description 04/24/2022 Appointment Laboratory Medicine Angélica Granger P.A.-CDemetrius [address] [place] [phone] 04/25/2022 Office Visit Otorhinolaryngology Dex Matta, RAMONA, C.N.P., M.S.N. [address] [place] [phone] 05/08/2022 Appointment Laboratory Medicine Angélica Granger P.A.-CDemetrius [address] [place] [phone] 05/08/2022 Clinical Admitting/Central Communication Scheduling 05/10/2022 Appointment Radiology Jeremie Rose M.D. [address] [place] [phone] 05/10/2022 Comprehensive Visit Orthopedic Surgery Warner Graves M.D. [address] [place] [phone] 05/22/2022 Appointment Laboratory Medicine Angélica Granger P.A.-C. [address] [place] [phone] 06/05/2022 Appointment Laboratory Medicine Angélica Granger P.A.-C. [address] [place] [phone] 06/19/2022 Appointment Laboratory Medicine Angélica Granger P.A.-C. [address] [place] [phone] 07/03/2022 Appointment Laboratory Medicine Angélica Granger P.A.-C. [address] [place] [phone] 07/17/2022 Appointment Laboratory Medicine Angélica Granger P.A.-C. [address] [place] [phone] 07/31/2022 Appointment Laboratory Medicine Angélica Granger P.A.-C. [address] [place] [phone] 08/14/2022 Appointment Laboratory Angélica Royal P.A.-C. [address] [place] [phone] 08/28/2022 Appointment Laboratory Medicine Angélica Granger P.A.-C. [address] [place] [phone] documented as of this encounter Visit Diagnoses Diagnosis Rhinosinusitis Chronic - Primary documented in this encounter Additional Health Concerns Assessment Noted Time PHQ-9 Depression Total Score: 4 11/28/2020 10:17 AM CD T documented as of this encounter Care Teams Handbag Framer Relationship Specialty Start Date End Date Elsewhere, Pcp PCP - General Family Medicine 07/29/17 [facility] - Laboratory Medicine 04/12/20 [place] [phone] documented as of this encounter
--- OUTSIDE RECORDS SUMMARY | 2022-04-13 12:07 | XMS_ITS | Encounter Summary ---
:1955 Author Organization 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 [address] [place] [phone] 04/25/2022 Office Visit Otorhinolaryngology Dex Matta, RAMONA, C.N.P., M.S.N. [address] [place] [phone] 05/08/2022 Appointment Laboratory Medicine Angélica Granger P.A.-CDemetrius [address] [place] [phone] 05/08/2022 Clinical Admitting/Central Communication Scheduling 05/10/2022 Appointment Radiology Jeremie Rose M.D. [address] [place] [phone] 05/10/2022 Comprehensive Visit Orthopedic Surgery Warner Graves M.D. [address] [place] [phone] 05/22/2022 Appointment Laboratory Medicine Angélica Granger P.A.-C. [address] [place] [phone] 06/05/2022 Appointment Laboratory Medicine Angélica Granger P.A.-C. [address] [place] [phone] 06/19/2022 Appointment Laboratory Medicine Angélica Granger P.A.-C. [address] [place] [phone] 07/03/2022 Appointment Laboratory Medicine Angélica Granger P.A.-C. [address] [place] [phone] 07/17/2022 Appointment Laboratory Angélica Royal P.A.-C. [address] [place] [phone] 07/31/2022 Appointment Laboratory Medicine Angélica Granger P.A.-C. [address] [place] [phone] 08/14/2022 Appointment Laboratory Angélica Royal P.A.-C. [address] [place] [phone] 08/28/2022 Appointment Laboratory Medicine Angélica Granger P.A.-C. [address] [place] [address] [phone] documented as of this encounter Visit Diagnoses Not on filedocumented in this encounter Additional Health Concerns Assessment Noted Time PHQ-9 Depression Total Score: 4 11/28/2020 10:17 AM CD T documented as of this encounter Care Teams Table Games Supervisor Relationship Specialty Start Date End Date Elsewhere, Pcp PCP - General Family Medicine 07/29/17 [facility] - Laboratory Medicine 04/12/20 [place] [phone] documented as of this encounter
--- OUTSIDE RECORDS SUMMARY | 2022-04-13 12:07 | XMS_ITS | Encounter Summary ---
:1955 Author Organization [facility] Address [address] [place] [address] Care Team Providers Name Role Phone Elsewhere, Pcp Primary Care Provider Unavailable Reason for Referral Outpatient (Routine) - Closed Specialty Diagnoses / Procedures Referred By Contact Refer red To Contact Diagnoses Hypertension And Chronic Kidney Disease Stage 5 (HCC) Chronic Cough Otoniel Norwood Jr.[facility] Procedures DX Chest AP or PA and Lateral 2 Views D.O. [address] [place] [phone] Referral ID Status Reason Start Date Expiration Date Visits Requ ested Visits Authorized [id number] Closed 07/30/2021 07/30/2022 1 1 UNTING MANAGER ASSISTANT CONTROLLER Encounter Details Date Type Department Care Team Description 07/30/2021 Orders Only Division of Nephrology Otoniel Norwood ypangelesension And Chronic Kidney Disease Stage 5 (HCC) (Primary Dx); and Hypertension in Arley Rees D.O. 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 [address] [place] [address] [phone] 05/08/2022 Appointment Laboratory Medicine Angélica Granger P.A.-C. [address] [place] [phone] 05/08/2022 Clinical Admitting/Central Communication Scheduling 05/10/2022 Appointment Radiology Jeremie Rose M.D. [address] [place] [phone] 05/10/2022 Comprehensive Visit Orthopedic Surgery Warner Graves M.D. [address] [place] [phone] 05/22/2022 Appointment Laboratory Medicine Angélica Granger P.A.-C. [address] [place] [phone] 06/05/2022 Appointment Laboratory Medicine Angélica Granger P.A.-C. [address] [place] [phone] 06/19/2022 Appointment Laboratory Medicine Angélica rGanger P.A.-C. [address] [place] [phone] 07/03/2022 Appointment Laboratory Medicine Angélica Granger P.A.-C. [address] [place] [phone] 07/17/2022 Appointment Laboratory Medicine Angélica Granger P.A.-C. [address] [place] [phone] 07/31/2022 Appointment Laboratory Medicine Angélica Granger P.A.-C. [address] [place] [phone] 08/14/2022 Appointment Laboratory Medicine Angélica Granger P.A.-C. [address] [place] [address] [place] [phone] 08/28/2022 Appointment Laboratory Medicine Angélica Granger P.A.-C. [address] [place] [phone] documented as of this encounter Results DX Chest AP or PA and Lateral 2 Views (07/31/2021 9:29 AM ACCOUNTING MANAGER ASSISTANT CONTROLLER) Anatomical Region Laterality Modality Chest, Thoracic RST LOS, Thoracic ARZ LOS, Thoracic N/A Digital Radiography FLA LOS Specimen (Source) Anatomical Collection Method Collection Time Re ceived Time Location / / Volume Laterality 07/31/2021 9:45 AM ACCOUNTING MANAGER ASSISTANT CONTROLLER Impressions 07/31/2021 10:16 AM ACCOUNTING MANAGER ASSISTANT CONTROLLER Comparison 05/23/2021. Stable patchy opacities in the lung bases consistent with bronchiectasis is seen o n the prior chest CT from 06/12/2021. No acute infiltrates. Nipple shadows. Libby l cardiac silhouette. Right IJ catheter tip in the low SVC. Left PICC line tip i n the SVC/RA junction. Degenerative changes of the spine. Narrative 07/31/2021 10:16 AM ACCOUNTING MANAGER ASSISTANT CONTROLLER EXAM: ??DX CHEST AP OR PA AND [...] Degenerative changes of the spine. Louie Pelletier Jr.ODemetrius [facility] PRO CEDURES documented in this encounter Visit Diagnoses Diagnosis Hypertension And Chronic Kidney Disease Stage 5 (HCC) - Primary Chronic Cough Hypertension And Chronic Kidney Disease Stage 5 (HCC) Chronic Cough documented in this encounter Additional Health Concerns Assessment Noted Time PHQ-9 Depression Total Score: 4 11/28/2020 10:17 AM CD T documented as of this encounter Care Teams Salesperson Meats Relationship Specialty Start Date End Date Elsewhere, Pcp PCP - General Family Medicine 07/29/17 [facility] - Laboratory Medicine 04/12/[address] [address] documented as of this encounter
--- OUTSIDE RECORDS SUMMARY | 2022-04-13 12:07 | XMS_ITS | Encounter Summary ---
:1955 Author Organization [facility] Address [address] [place] [address] Care Team Providers Name Role Phone Elsewhere, Pcp Primary Care Provider Unavailable Reason for Visit Reason Comments External Lab Entry 07/20/2021 Encounter Details Date Type Department Care Team Description 07/30/2021 Clinical Curt Garces Transplant, Director Center al Lab Entry Communication Center for Coordinator, (07/20/2021) Transplantation and R.N. 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 How often do you attend sikhism or More than 4 times per year 12/15/2021 tenriism services? 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 [address] [place] [phone] 05/08/2022 Appointment Laboratory Medicine Angélica Granger P.ADemetrius-C. [address] [place] [phone] 05/08/2022 Clinical Admitting/Central Communication Scheduling 05/10/2022 Appointment Radiology Jeremie Rose M.D. [address] [place] [phone] 05/10/2022 Comprehensive Visit Orthopedic Surgery Warner Graves M.D. [address] [place] [phone] 05/22/2022 Appointment Laboratory Medicine Angélica Granger P.A.-CDemetrius [address] [place] [phone] 06/05/2022 Appointment Laboratory Medicine Angélica Granger P.A.-C. [address] [place] [phone] 06/19/2022 Appointment Laboratory Medicine Angélica Granger P.A.-C. [address] [place] [phone] 07/03/2022 Appointment Laboratory Medicine Angélica Granger P.A.-C. [address] [place] [phone] 07/17/2022 Appointment Laboratory Medicine Angélica Granger P.A.-C. [address] [place] [phone] 07/31/2022 Appointment Laboratory Medicine Angélica Granger P.A.-C. [address] [place] [phone] 08/14/2022 Appointment Laboratory Medicine Angélica Granger P.A.-C. [address] [place] [phone] 08/28/2022 Appointment Laboratory Medicine Angélica Granger P.A.-C. [address] [place] [phone] documented as of this encounter Procedures Procedure Name Priority Date/Time Associated Diagnosis Comme nts EXTP Routine 07/20/2021 9:00 AM Results f or this TRANSPLANT/LIVER - PRESS TENDER LONG GOODS procedure are in BLOOD, [facility]. documented in this encounter Results Transplant/Liver - Blood, External Lab Results (07/20/2021 9:00 AM PRESS TENDER LONG GOODS) [facility] gist Method Time Signature EXT CMV DNA positive Quant, P <200 Specimen (Source) Anatomical Collection Method Collection Time Re ceived Time Location / / Volume Laterality Blood 07/20/2021 9:00 AM PRESS TENDER LONG GOODS Narrative This result has an attachment that is no t available. Historical Provider LAB BLOOD NON ADD-ON documented in this encounter Visit Diagnoses Not on filedocumented in this encounter Additional Health Concerns Assessment Noted Time PHQ-9 Depression Total Score: 4 11/28/2020 10:17 AM CD T documented as of this encounter Care Teams Health And Fitness Instructor Relationship Specialty Start Date End Date Elsewhere, Pcp PCP - General Family Medicine 07/29/17 [facility] - Laboratory Medicine 04/12/[address] [address] documented as of this encounter
--- OUTSIDE RECORDS SUMMARY | 2022-04-13 12:08 | XMS_ITS | Encounter Summary ---
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 [address] [place] [phone] [address] [facility], Reba Azevedo, VOICE NETWORK ENGINEER, REAL ESTATE ASSESSOR [address] [place] [phone] [place] [phone] Anesthesia Record Procedure Summary Procedure Name Responsible Anesthesia Start Anesthesia Stop Anesthesiologist Time Time CREATION FISTULA Samson Piedra M.D. 07/24/21 0858 07/24/21 1 125 BRACHIOCEPHALIC ARTERIOVENOUS. (Right) Events Date Time Event Comment 07/24/2021 0858 An Start Machine/Equipmen t Checked Infection Precautions Foll owed Procedure/Site Verified NPO Sta tus Verified Supine Standard ASA Mon itors Applied 0905 Turnover to Proceduralist 0935 Proc Start 1110 Proc Fin 1116 Turnover to ANE Staff 1118 an stop data 1125 An End I completed my h andoff to the receiving staff during [facility] we 1. Identified the patient 2. Ident ified the responsible provider 3. Revi ewed the pertinent medical history 4. Discu ssed the surgical course 5. Reviewed intra-o p anesthesia management and issues during an esthesia 6. Set expectations for post-procedure period 7. Allowed opportun ity for questions and acknowledgement of understanding. Name Total fentanyl injection 50 mcg/mL 25 mcg lidocaine 2% (mg) injection 40 mg propofol 10 mg/mL infusion 793.88 mg propofol bolus from bag 40 mg Lactated Ringers Free Drip 100 mL Agents No agents on file. Blood No blood administrations on file. Lines, Drains, and Airways Type Details Placement Removal Hemodialysis AV Access Placement Date: 07/24/21 1038 by 07/24/21; Placement Pina Blunt, Time: 1038 R.N. Hemodialysis Catheter Placement Date: 05/31/21 1517 by 10/16/21 1500 by 05/31/21; Placement Jason Mosher Ell en J, Time: 151; Catheter Dorene AmosN. R.NDemetrius Length (cm): 23 cm; Removal Date: 10/16/21; [...] 0800; Removal Reason: No longer in place Peripheral IV Placement Date: 07/24/21720 by 07/24/21 1238 b y 07/24/21; Placement Branden Chambers Nancy Time: 720; Catheter L, R.N. Size: 18 G; Orientation: Left, Lower, Posterior; Location: Forearm; Technique: (milan); Inserted by: bharti; Insertion Attempts: 1; Removal Date: 07/24/21; Removal Time: 1238; Removal Reason: Completion of therapy Wound 07/24/21; 1039; 07/24/21 1039 by 10/16/21 1622 b y Incision; Arm; Right, Pina Blunt Gershma n, Melanie Lower; 10/16/21; 1622 R.N. R, R.N. 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 - 07/24/2021 12:53 PM CST Patient: Bruce Singh Procedure Summary Date: 07/24/21 Room / Location: [place] [address] / [facility] in [place], [place] Anesthesia Start: 0858 Anesthesia Stop: 112 Procedure: CREATION FISTULA BRACHIOCEPHALIC ARTERIOVENOUS. 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 Responsible Provider: Samson Piedra M.D. Anesthesia Type: MAC ASA Status: 4 Anesthesia Type: MAC Last vitals Vitals Value Taken Time BP 127/78 07/24/21 1131 Temp 36.8 ??C 07/24/21 1135 Pulse 61 07/24/21 1140 Resp 14 07/24/21 1140 SpO2 97 % 07/24/21 1140 Vitals shown include unvalidated device data. Please reference Vitals flowsheet for most recent vital signs. Anesthesia Post Evaluation Patient Disposition: general care unit Cardiovascular status: hemodynamics (HR & BP) acceptable Respiratory status: patent airway with spontaneous effort Temperature: normothermic Oxygen requirements: room air Level of consciousness: awake Pain score: pain adequately controlled and/or at baseline Post Op nausea/vomiting: none Hydration status: euvolemic MANAGER Anesthesia Preprocedure Evaluation - Samson Jefferson M.D. - 07/24/2021 8:58 AM CST Preprocedure Anesthesia & H&P Assessment Procedure Summary Date/Time: 07/24/21 09 Procedure: CREATION FISTULA BRACHIOCEPHALIC ARTERIOVENOUS. 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 Location: [place] [address] / [facility] in [place], [place] Providers: Dario Shafer M.D., Ph.D. Pertinent components of the patient's history including [...] EXAMINATION Airway (HEENT) Mallampati: II TM Distance: >3 FB Neck ROM: Full Mouth Opening: >3 cm Upper Lip Bite Test Class: I Cardiovascular Rhythm: Regular Rate: Normal Cardiovascular Assessment: cardiovascular normal Functional Capacity: >4 METS Pulmonary Pulmonary Assessment: Clear General / Constitutional Constitutional Assessment: Normal General State of Health:: healthy appearing and calm Neurological Neurologic Assessment:??alert and alert and oriented x 3 Dental Dental Assessment: dentition intact ASSESSMENT / PLAN ANESTHESIA PLAN ASA: 4 Anesthesia Plan: MAC Patient seen and allergies reviewed, anesthesia plan and risks discussed directly with patient /legal guardian or through an sign language interpreter. Risks/Benefits/Alternatives of Blood transfusion discussed with patient / legal guardian, including an opportunity to ask questions and/or decline some or all transfusion therapies. The patient / legalguardian consented to the use of all blood products, as deemed medically necessary Approval to Proceed: approved for anesthesia MANAGER documented in this encounter Plan of Treatment Upcoming Encounters Date Type Specialty Care Team Description 04/24/2022 Appointment Laboratory Medicine Angélica Granger P.A.-C. [address] [place] [phone] 04/25/2022 Office Visit Otorhinolaryngology Dex Matta APRN, C.N.P., M.S.N. [address] [place] [phone] 05/08/2022 Appointment Laboratory Medicine Angélica Granger P.A.-C. [address] [place] [phone] 05/08/2022 Clinical Admitting/Central Communication Scheduling 05/10/2022 Appointment Radiology Jeremie Rose M.D. [address] [place] [phone] 05/10/2022 Comprehensive Visit Orthopedic Surgery Warner Graves M.D. [address] [place] [phone] 05/22/2022 Appointment Laboratory Medicine Angélica Granger P.A.-C. [address] [place] [phone] 06/05/2022 Appointment Laboratory Medicine Angélica Granger P.A.-C. [address] [place] [phone] 06/19/2022 Appointment Laboratory Medicine Angélica Granger P.A.-C. [address] [place] [phone] 07/03/2022 Appointment Laboratory Medicine Angélica Granger P.A.-C. [address] [place] [phone] 07/17/2022 Appointment Laboratory Medicine Angélica Granger P.A.-C. [address] [place] [phone] 07/31/2022 Appointment Laboratory Medicine Angélica Granger P.A.-C. [address] [place] [phone] 08/14/2022 Appointment Laboratory Medicine Angélica Granger P.A.-C. [address] [place] [phone] 08/28/2022 Appointment Laboratory Medicine Angélica Granger P.A.-C. [address] [place] [phone] documented as of this encounter Visit Diagnoses Not on filedocumented in this encounter Administered Medications Inactive Administered Medications - up to 3 most recent administrations Medication Order MAR Action Action Date Dose Rate Site fentaNYL injection (SUBLIMAZE) Given 07/24/2021 9:36 AM SPA MANAGER 25 mcg intravenous, As needed, Starting on Fri07/24/21 at 0936, Anesthesia Intra-op lactated ringers New Bag 07/24/2021 8:58 AM SPA MANAGER intravenous, Continuous Infusion: Per Instructions PRN, Starting on Fri07/24/21 at 0858, Anesthesia Intra-op lidocaine (PF) (cardiac) injection Given 07/24/2021 9:07 AM SPA MANAGER 40 mg intravenous, As needed, Starting on Fri07/24/21 at 0907, Anesthesia Intra-op propofol 10 mg/mL infusion New Bag 07/24/2021 10:54 AM 60 mcg/kg/m in 27 mL/hr (DIPRIVAN) SPA MANAGER intravenous, Continuous Infusion: Per Instructions PRN, Starting on Fri07/24/21 at 0904, Anesthesia Intra-op Rate/Dose Change 07/24/2021 10:44 AM SPA MANAGER 60 mcg/kg/min 27 mL/hr Rate/Dose Change 07/24/2021 9:59 AM SPA MANAGER 75 mcg/kg/min 33.75 mL/hr propofol bolus from bag (DIPRIVAN) Given 07/24/2021 9:15 AM SPA MANAGER 20 mg intravenous, As needed, Starting on Fri07/24/21 at 0907, Anesthesia Intra-op Given 07/24/2021 9:07 AM SPA MANAGER 20 mg documented in this encounter Additional Health Concerns Assessment Noted Time PHQ-9 Depression Total Score: 4 11/28/2020 10:17 AM CD T documented as of this encounter Care Teams Agency Sales Director Relationship Specialty Start Date End Date Elsewhere, Pcp PCP - General Family Medicine 07/29/17 [facility] - Laboratory Medicine 04/12/20 [place] [phone] documented as of this encounter
--- OUTSIDE RECORDS SUMMARY | 2022-04-13 12:08 | XMS_ITS | Encounter Summary ---
:1955 Author Organization [facility] Address [address] [place] [address] Care Team Providers Name Role Phone Elsewhere, Pcp Primary Care Provider Unavailable Reason for Visit Reason Comments Post-op Postsurgical appointment Encounter Details Date Type Department Care Team Description 07/23/2021 Clinical Department of Jean, Post-op Communication Otorhinolaryngology in [place], (Pos tsurgical [place], [place] M.D. appointment ) [address] [place] [address] [place] [phone] [place] [phone] Social History Tobacco Use Types Packs/Day Years [...] More than 4 times per year 12/15/2021 temple services? 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 Thank you! Cici CONSERVATION TEACHER Telephone Encounter - Cici Whitney - 07/24/2021 11:41 AM CST Good morning, Unfortunatley, it looks like that open post op slot has been filled already on 07/31. Is there a different day you would like me to override onto or would you like me to direct overbook a slot still on 07/31? Thank you, Cici CONSERVATION TEACHER Telephone Encounter - Kecia Trinidad - 07/23/2021 9:38 AM CST FYI, this patient has been moved to 07/26 but his postop appointment is still scheduled for 08/28. If this needs to be moved up to 7-10 days postop please advise as you will be out of town 08/02-08/06 & 08/09-08/10. CONSERVATION TEACHER documented in this encounter Plan of Treatment Upcoming Encounters Date Type Specialty Care Team Description 04/24/2022 Appointment Laboratory Medicine Angélica Granger P.A.-C. [address] [place] [phone] 04/25/2022 Office Visit Otorhinolaryngology Dex Matta APRN CDemetriusNDemetriusPDemetrius, M.S.N. [address] [place] [phone] 05/08/2022 Appointment Laboratory Medicine Angélica Granger P.A.-C. [address] [place] [phone] 05/08/2022 Clinical Admitting/Central Communication Scheduling 05/10/2022 Appointment Radiology Jeremie Rose M.D. [address] [place] [phone] 05/10/2022 Comprehensive Visit Orthopedic Surgery Warner Graves M.D. [address] [place] [phone] 05/22/2022 Appointment Laboratory Medicine Angélica Granger P.A.-C. [address] [place] [phone] 06/05/2022 Appointment Laboratory Medicine Angélica Granger P.A.-C. [address] [place] [phone] 06/19/2022 Appointment Laboratory Medicine Angélica Granger P.A.-C. [address] [place] [phone] 07/03/2022 Appointment Laboratory Medicine Angélica Granger P.A.-C. [address] [place] [phone] 07/17/2022 Appointment Laboratory Medicine Angélica Granger P.A.-C. [address] [place] [phone] 07/31/2022 Appointment Laboratory Medicine Angélica Granger P.A.-C. [address] [place] [phone] 08/14/2022 Appointment Laboratory Medicine Angélica Granger P.A.-C. [address] [place] [phone] 08/28/2022 Appointment Laboratory Medicine Angélica Granger P.A.-C. [address] [place] [phone] documented as of this encounter Visit Diagnoses Not on filedocumented in this encounter Additional Health Concerns Infection Onset Date Last Indicated Resolved Time COVID19 Pending 07/22/2021 07/23/2021 07/23/2021 8:59 PM SOIL CONSERVATION TEACHER Assessment Noted Time PHQ-9 Depression Total Score: 4 11/28/2020 10:17 AM CD T documented as of this encounter Care Teams Chimney Builder Relationship Specialty Start Date End Date Elsewhere, Pcp PCP - General Family Medicine 07/29/[address] [facility] - Laboratory Medicine 04/12/[address] [address] documented as of this encounter
--- OUTSIDE RECORDS SUMMARY | 2022-04-13 12:08 | XMS_ITS | Encounter Summary ---
:1955 Author Organization [facility] Address [address] [place] [address] Care Team Providers Name Role Phone Elsewhere, Pcp Primary Care Provider Unavailable Reason for Visit Auth/Cert Specialty Diagnoses / Procedures Referred By Contact Refer red To Contact Diagnoses Rhinosinusitis Chronic Rhinosinusitis Chronic [J32.8] Procedures IA NSL/SINS NDSC SPHN TISS RMVL IA ENDO NSL MAX ANTROST W RMV TIS IA ENDO NSL W FRNTL SINUS EXPLOR IA SEPTO/SUBM RESEC W/WO CART GRFT IA SUBMUC RSECT TURB PRTL/COMPLT IA STRTCTC COMP-ASSIST CRNL EXTRA ENDOSCOPIC SPHENOIDOTOMY WIT H TISSUE REMOVAL ETHMOIDECTOMY ENDOSCOPY ENDOSCOPIC MAXILLARY ANTROSTOMY WITH TISSUE REMOVAL SINUSOTOMY ENDOSCOPY FRONTAL SEPTOPLASTY REDUCTION TURBINATE INFERIOR EXTRADURAL COMPUTER NAVIGATION, proceed as indicated Referral ID Status Reason Start Date Expiration Date Visits Requ ested Visits Authorized [id number] 1 1 Encounter Details Date Type Department Care Team Description 07/26/2021 Surgery RST ROMB MAIN OR Toro Pena W, ENDOSCOPIC SPHENOIDOTOMY [address] [facility] M.DDemetrius WITH TISSUE REMOVAL. [place], [place] [address] [facility] [id number] [place], [place] [phone] Social History Tobacco Use Types Packs/Day Years [...] at Date Recorded Male 05/16/2020 4:27 PM DEVELOPMENT CONSULTANT documented as of this encounter Last Filed Vital Signs Vital Sign Reading Time Taken Comments Blood Pressure 114/56 07/26/2021 12:45 PM DEVELOPMENT CONSULTANT Pulse 62 07/26/2021 12:55 PM DEVELOPMENT CONSULTANT Temperature 36.9 ??C (98.4 ??F) 07/26/2021 11:45 AM DEVELOPMENT CONSULTANT Respiratory Rate 15 07/26/2021 12:55 PM DEVELOPMENT CONSULTANT Oxygen Saturation 99% 07/26/2021 12:55 PM DEVELOPMENT CONSULTANT Inhaled Oxygen Concentration - - Weight 70.1 kg (154 lb 8.7 oz) 07/26/2021 6:50 AM DEVELOPMENT CONSULTANT Height 175.4 cm (5' 9.06) 07/26/2021 6:50 AM DEVELOPMENT CONSULTANT Body Mass Index 22.79 07/26/2021 6:50 AM DEVELOPMENT CONSULTANT documented in this encounter Discharge Instructions AttachmentsThe following attachments cannot be sent through Care Everywhere. Instructions After Sedation or Anesthesia for Adults (Armenian)documented in this encounter Medications at Time of [...] hours as needed for nausea or vomiting. lamoTRIgine (LaMICtal) TAKE 1 TABLET BY 200 tablet 3 021 10/22/2021 200 mg tablet MOUTH TWICE DAILY mycophenolate TAKE 1 TABLET BY 180 tablet 3 11/06/202010/11 (CELLCEPT) 500 mg MOUTH TWICE DAILY tabletIndications: Transplant Liver (HCC) NIFEdipine XL TAKE 3 TABLETS(90 270 tablet 3 07/05/2021 04/2 11/2021 (PROCARDIA XL) 30 mg 24 MG) BY MOUTH DAILY hr tabletIndications: Hypertension And Chronic Kidney Disease Stage 4 (HCC) tacrolimus (PROGRAF) TAKE 2 CAPSULES BY 360 capsule 3 202110/16/2021 0.5 mg MOUTH TWICE DAILY capsuleIndications: Transplant Liver (HCC), Medication Therapy Alf Not Anticoagulant torsemide (DEMADEX) 10 Take 30 mg by mouth 0 08/17/2021 mg tablet daily. doxycycline monohydrate Take 1 tablet (100 20 tablet 0 02/0 08/202108/05/2021 (ADOXA) 100 mg tablet mg total) by mouth 2 (two) times a day for 10 days. sodium chloride 0.9 % Infuse 5 mL into a 28 each 0 202007/27/2021 injection venous catheter as needed for line care (as per agency protocol. For PICC.). acetaminophen (TYLENOL) Take 1 tablet (500 0 02/0 06/202110/12/2021 500 mg tablet mg total) by mouth every 6 (six) hours as needed for pain. budesonide (Pulmicort) Mix 1 ampule in 120 mL 6 07/18/19 21 07/30/2021 0.5 mg/2 mL nebulizer sinus irrigation solution bottle and irrigate twice daily. calcium carb/magnesium Take 2 tablets by 0 [...] day. upto 5 times daily as needed. levothyroxine Take 1 tablet (25 90 tablet 3 12/12/2020 06/0 12/2021 (SYNTHROID, LEVOTHROID) mcg total) by mouth 25 mcg every morning before tabletIndications: breakfast. Transplant Liver (HCC) multivitamin tablet Take 1 tablet by 0 06/18/2013 10/12/2021 mouth daily. Maintenance oxyCODONE (ROXICODONE) Take 1 tablet (5 mg 10 tablet 0 08/202110/13/2021 5 mg immediate release total) by mouth tabletIndications: every 4 (four) hours Acute Pain as needed for severe pain or score 7-10 of 10 Indication: Acute Pain. predniSONE (DELTASONE) TAKE 1 TABLET(5 MG) 90 tablet 3 12/202110/16/2021 5 mg tabletIndications: BY MOUTH DAILY Transplant Liver (HCC), Medication Therapy Alf Not Anticoagulant UNABLE TO FIND by nasal 0 10/12/2021 (alternating) route 2 (two) times a day. Azelastine 1mg to Sinus Rinse twice daily. [facility] documented as of this encounter OR Notes Op Note - Toro Pena M.D. - 07/26/2021 8:20 AM CST Pre-op Diagnosis Rhinosinusitis Chronic Post-op Diagnosis Rhinosinusitis Chronic A sales operations assistant actively participated and was necessary for one or more of the following: opening,exposure and visualization during the case, maintaining hemostasis, wound closure resulting in its safe and expeditious completion. Findings As expected. Complications None Description of Procedure Toro Pena M.D. PRE-OPERATIVE DIAGNOSIS 1. Chronic rhinosinusitis. 2. Nasal airway obstruction. 3. Bilateral inferior turbinate hypertrophy. 4. History of liver transplant on immunosuppression 5. End-stage chronic kidney disease on dialysis therapy POST-OPERATIVE DIAGNOSIS 6. Chronic rhinosinusitis. 7. Nasal airway obstruction. 8. Bilateral inferior turbinate hypertrophy. 9. History of liver transplant on immunosuppression 10. End-stage chronic kidney disease on dialysis therapy PROCEDURE(S) 1. Bilateral submucosal inferior turbinate reduction. 2. Bilateral maxillary antrostomy with tissue removal. 3. Bilateral total ethmoidectomy. 4. Bilateral sphenoidotomy with tissue removal. 5. Bilateral frontal sinusotomy. 6. Extradural computer-assisted navigation. FINDINGS 1. Copious purulence throughout, more pronounced than his previous CT scan 2. Mucosal inflammation throughout 3. Right greater than left inferior turbinate hypertrophy 4. Bloody oozing prominently throughout the case 5. Significant polypoid change in edema in bilateral frontal sinuses in addition to purulence BRIEF CLINICAL NOTE: This is a 65-year-old patient known to me for chronic rhinosinusitis, chronic postnasal drainage, purulent drainage and chronic cough. He has a complicated medical history including history of liver transplantation as well as end-stage renal disease on dialysis therapy. We initially tried a number of topical and other medical therapies. However, these were not effective for him symptoms worsen. Imaging demonstrated evidence of chronic rhinosinusitis. Therefore, we discussed additional options and I offered him the aforementioned surgery. We had a full discussion regarding risks benefits and alternatives. Patient voiced his understanding and wished to proceed. Informed consent was obtained. DESCRIPTION OF PROCEDURE The patient was brought back to the [facility] and placed supine on the operating table. General endotracheal anesthesia was induced. The patient was turned 180 degrees. The patient was draped in the typical fashion for endoscopic surgery. The computer-assisted CT guided electromagnetic navigation device was brought into the field. Registration was carried out with surface mapping and CT scan. The was confirmed for accuracy. Electromagnetic-tracked instruments including frontal and straight probes were used throughout the case to confirm garcia anatomical landmarks. Left sided sinus surgery We then proceeded with a left-sided sinus surgery. The middle turbinate was gently medialized. We identified the uncinate process and dissected this in a retrograde fashion with a terrier backbiter andremoved it in its entirety. We then used an angled scope to visualize the natural os of the maxillary sinus and dilated this posteriorly. We then incorporated this into a wide antrostomy with thru-cutting instrumentation and a microdebrider. Copious purulence was evacuated serially irrigated. Hyperplastic tissue and polypoid mucosa were removed from within the sinus with a microdebrider. We then identified the ethmoid bulla. We entered into this inferiorly and medially in its natural oswith a ball probe and fractured this forward. We then removed this with a combination of through cutting instrumentation as well as a micro debrider. We continued to dissect additional anterior ethmoidcells and identified the lamina papyracea in this area. We then identified the basal lamella and crossed through this in an inferior medial fashion. We identified the superior turbinate on the posterior aspect of this and left this in situ. We then dissected posterior ethmoid cells from medial to lateral last skeletonizing the orbit and working towards the skull base, confirming our location with navigation. At this juncture, we elected to perform our sphenoidotomy. Using the computer assisted navigation device, we identified the natural os of this just medial to the superior turbinate. We trimmed the superior turbinate at this level with a straight thru cut. We then dilated the os of the sphenoid sinus with a J- curette. We then opened this widely in all directions with a combination of Hosemann punch and Kerrison rongeur. Hyperplastic mucosa and debris were removed from the sinus. We then continued to dissect additional anterior and posterior ethmoid cells skeletonizing the entirety of the skull base and orbit in this fashion. At this juncture, we turned our attention to the patient's frontal sinus. We used a computer-assisted navigation device to navigate into this area. Once we had identified the natural outflow tract, we fractured the agger Nasi cell anteriorly and removed this. We then identified and dissected additional bullar and supra-bullar cells in this area. We then opened the floor of the frontal sinus widely inall directions with a combination of micro debrider and frontal sinus through cutting instrumentation. We then irrigated out the sinus cavities on this side and hemostasis was obtained. Right sided sinus surgery We then proceeded with a right-sided sinus surgery. The middle turbinate was gently medialized. We identified the uncinate process and dissected this in a retrograde fashion with a terrier backbiter and removed it in its entirety. We then used an angled scope to visualize the natural os of the maxillary sinus and dilated this posteriorly. We then incorporated this into a wide antrostomy with thru-cutting instrumentation and a microdebrider. Copious purulence was serially irrigated evacuated. Hyperplastic tissue and polypoid mucosa were removed from within the sinus with a microdebrider. We then identified the ethmoid bulla. We entered into this inferiorly and medially in its natural oswith a ball probe and fractured this forward. We then removed this with a combination of through cutting instrumentation as well as a micro debrider. We continued to dissect additional anterior ethmoidcells and identified the lamina papyracea in this area. We then identified the basal lamella and crossed through this in an inferior medial fashion. We identified the superior turbinate on the posterior aspect of this and left this in situ. We then dissected posterior ethmoid cells from medial to lateral last skeletonizing the orbit and working towards the skull base, confirming our location with navigation. At this juncture, we elected to perform our sphenoidotomy. Using the computer assisted navigation device, we identified the natural os of this just medial to the superior turbinate. We trimmed the superior turbinate at this level with a straight thru cut. We then dilated the os of the sphenoid sinus with a J- curette. We then opened this widely in all directions with a combination of Hosemann punch and Kerrison rongeur. Hyperplastic mucosa and debris were removed from the sinus. We then continued to dissect additional anterior and posterior ethmoid cells, skeletonizing the entirety of the skull baseand orbit in this fashion. At this juncture, we turned our attention to the patient's frontal sinus. We used a computer-assisted navigation device to navigate into this area. Once we had identified the natural outflow tract, we fractured the agger nasi cell anteriorly and removed this. We then identified and dissected additional bullar and supra-bullar cells in this area. We then opened the floor of the frontal sinus widely inall directions with a combination of micro debrider and frontal sinus through cutting instrumentation. We then irrigated out the sinus cavities on this side and hemostasis was obtained. Bilateral submucosal inferior turbinate reduction We then proceeded with a bilateral submucosal inferior turbinate reduction. After infiltration with local anesthetic, an incision was carried out with a Alexander elevator over the head of the left inferior turbinate. We then dissected back posteriorly with a Alexander elevator. We then performed a submucosal reduction with the microdebrider and then outfractured this. We then proceeded in a very similar fashion on the right side. Mucosal incision was made and a submucoperiosteal dissection was carried out. A submucosal reduction was then made with the microdebrider and was then outfractured. At this juncture, the entirety of the nasal cavity was irrigated out. Hemostasis was obtained. We then placed Propel stents into the right left bilateral frontal sinuses. We then placed PosiSep into the bilateral middle meatuses. An orogastric tube was passed, and the patient was turned back to the care of Anesthesia for wake up. A sales operations assistant actively participated and was necessary for one or more of the following: opening,exposure and visualization during the case, maintaining hemostasis, wound closure resulting in its safe and expeditious completion. LOPMENT CONSULTANT documented in this encounter Plan of Treatment Upcoming Encounters Date Type Specialty Care Team Description 04/24/2022 Appointment Laboratory Medicine Angélica Granger P.A.-C. [address] [place] [phone] 04/25/2022 Office Visit Otorhinolaryngology Dex Matta APRN, CDemetriusN.PDemetrius, M.S.N. [address] [place] [phone] 05/08/2022 Appointment Laboratory Medicine Angélica Granger P.A.-C. [address] [place] [phone] 05/08/2022 Clinical Admitting/Central Communication Scheduling 05/10/2022 Appointment Radiology Jeremie Rose M.D. [address] [place] [phone] 05/10/2022 Comprehensive Visit Orthopedic Surgery Warner Graves M.D. [address] [place] [phone] 05/22/2022 Appointment Laboratory Medicine Angélica Granger P.A.-C. [address] [place] [phone] 06/05/2022 Appointment Laboratory Medicine Angélica Granger P.A.-C. [address] [place] [phone] 06/19/2022 Appointment Laboratory Medicine Angélica Granger P.A.-C. [address] [place] [phone] 07/03/2022 Appointment Laboratory Medicine Angélica Granger P.A.-C. [address] [place] [phone] 07/17/2022 Appointment Laboratory Medicine Angélica Granger P.A.-C. [address] [place] [phone] 07/31/2022 Appointment Laboratory Medicine Angélica Granger P.A.-C. [address] [place] [phone] 08/14/2022 Appointment Laboratory Medicine Angélica Granger P.A.-C. [address] [place] [phone] 08/28/2022 Appointment Laboratory Medicine Angélica Granger P.A.-C. [address] [place] [phone] documented as of this encounter Procedures Procedure Name Priority Date/Time Associated Diagnosis Comme nts SURGICAL PATHOLOGY, Routine 07/26/2021 10:34 Rhinosinusitis Ch ronic Results for this FROZEN LAB AM DEVELOPMENT CONSULTANT procedure are i n the results section. BACTERIAL CULTURE, Routine 07/26/2021 8:26 Rhinosinusitis Pin Drafting Machine Tender surinder Results for this AEROBIC + SUSC AM DEVELOPMENT CONSULTANT procedure are in the results section. GRAM STAIN Routine 07/26/2021 8:26 Rhinosinusitis Chronic Re sults for this AM DEVELOPMENT CONSULTANT procedure are i n the results section. BACTERIAL CULTURE, Routine 07/26/2021 8:26 Rhinosinusitis Pin Drafting Machine Tender surinder Results for this ANAEROBIC + SUSC AM DEVELOPMENT CONSULTANT procedure a re in the results section. EXTRADURAL COMPUTER 07/26/2021 7:23 Rhinosinusitis Chr onic NAVIGATION AM DEVELOPMENT CONSULTANT REDUCTION TURBINATE 07/26/2021 7:23 Rhinosinusitis Chr onic AM DEVELOPMENT CONSULTANT SEPTOPLASTY 07/26/2021 7:23 Rhinosinusitis Chronic AM DEVELOPMENT CONSULTANT SINUSOTOMY ENDOSCOPY 07/26/2021 7:23 Rhinosinusitis Ch ronic FRONTAL AM DEVELOPMENT CONSULTANT ENDOSCOPIC MAXILLARY 07/26/2021 7:23 Rhinosinusitis Ch ronic ANTROSTOMY WITH AM DEVELOPMENT CONSULTANT TISSUE REMOVAL ETHMOIDECTOMY 07/26/2021 7:23 Rhinosinusitis Chronic ENDOSCOPY AM DEVELOPMENT CONSULTANT ENDOSCOPIC 07/26/2021 7:23 Rhinosinusitis Chronic SPHENOIDOTOMY WITH AM DEVELOPMENT CONSULTANT TISSUE REMOVAL documented in this encounter Results Surgical Pathology, Frozen Lab (07/26/2021 10:34 AM DEVELOPMENT CONSULTANT) Component Value Ref Test Analysis Performed Pathologis t Range Method Time At Signature 07/31/2021 STMA 12:57 PM DEVELOPMENT CONSULTANT Report Markus Restrepo M.D. 07/31/2021 STMA electronically 12:57 PM signed by DEVELOPMENT CONSULTANT I verify that I have examined all relevant slides/materials for the specimen(s) and rendered or confirmed the diagnosis. Gross Description A. ??Received fresh in a CUSA trap labeled left sinonasal 07/31/2021 STMA contents is a 4.1 x 2.2 x 1.6 cm aggregate of pink soft 12:57 PM tissue, bone, and cartilage fragments. ??All soft tissue DEVELOPMENT CONSULTANT submitted for permanent sections. ??Grossed by Venkatesh Miller M.S., PA([facility]). B. ??Received fresh labeled right sinonasal contents is a 5.5 x 2.5 x 0.3 cm aggregate of grady-pink tissue admixed with cartilaginous and bony fragments. ??All submitted for permanent sections. ??Grossed by Bonny Camargo.Irena., PA([facility]). Block Summary A Left sinonasal contents 07/31/2021 STMA A1 Left sinonasal contents 1 12:57 PM A2 Left sinonasal contents 2 DEVELOPMENT CONSULTANT A3 Left sinonasal contents 3 A4 Left sinonasal contents 4 B Right sinonasal contents B1 Right sinonasal contents 1 B2 Right sinonasal contents 2 B3 Right sinonasal contents 3 B4 Right sinonasal contents 4 Interpretation FINAL DIAGNOSIS 07/31/2021 STMA 12:57 PM A. ??Sinonasal contents, left, excision: ??Benign sinonasal DEVELOPMENT CONSULTANT mucosa with acute and chronic inflammation, including mild eosinophils. ??Allergic mucin not identified. B. ??Sinonasal contents, right, excision: ??Benign sinonasal mucosa with acute and chronic inflammation, including mild eosinophils. ??Allergic mucin not identified. Specimen (Source) Anatomical Collection Method Collection Time Re ceived Time Location / / Volume Laterality Tissue (Nose) 07/26/2021 10:34 AM DEVELOPMENT CONSULTANT Tissue (Nose) 07/26/2021 11:23 AM DEVELOPMENT CONSULTANT Narrative This result has an attachment that is no t available. Toro Pena M.D. LAB SURG PATH ORDERABLES Performing Organization Address City/State/ZIP Code Phon e Number [facility] - [address] [place], [place] [address] [facility] [place] [address] [facility] [address] (ABNORMAL) Bacterial Culture, Aerobic + Susc (07/26/2021 8:26 AM DEVELOPMENT CONSULTANT) Component Value Ref Test Analysis Performed At [facility] gist Range Method Time Signature Bacterial Susceptibilities 08/01/2021 DTL Culture, requested by phone. 2:44 PM DEVELOPMENT CONSULTANT Aerobic + (A) Susc Bacterial SERRATIA MARCESCENS 08/01/2021 DTL Culture, 2+ 2:44 PM DEVELOPMENT CONSULTANT Aerobic + (A) Susc Comment: This organism may contain an inducible b eta-lactamase. Second- or third-generation cephalospori n monotherapy may result in the emergence of high-level resistance. Preferred empiric therapy, p ending antimicrobial susceptibility results, is cefepime, a f luoroquinolone, or a carbapenem, unless clinically contr aindicated. Bacterial Culture, Aerobic STREPTOCOCCUS INTERMEDIUS 08/01/2021 2:44 PM DEVELOPMENT CONSULTANT DTL + Susc 3+ (A) Comment: If susceptibilities desired, ca ll Ext. [phone] Bacterial Culture, STAPHYLOCOCCUS LUGDUNENSIS 02/2022 2:44 PM DEVELOPMENT CONSULTANT DTL Aerobic + Susc 1+ (A) Comment: mecA not detected by PCR This test was developed and its performa nce characteristics determined by [facility] in a manner co nsistent with CLIA requirements. This test has not bee n cleared or approved by the U.S. Food and Drug Admin istration. Bacterial Culture, NEISSERIA sp, NOT N. GONORRHOEAE OR N. MENINGITI DIS 08/01/2021 2:44 PM DEVELOPMENT CONSULTANT DTL Aerobic + Susc 2+ (A) Comment: If susceptibilities desired, ca ll Ext. [phone] Specimen (Source) Anatomical Collection Method Collection Time Re ceived Time Location / / Volume Laterality Sinus Contents 07/26/2021 8:26 AM (Nose) DEVELOPMENT CONSULTANT Organism Antibiotic Method Susceptibility Serratia marcescens Ampicillin SUSCEPTIBILITY, >16 mcg/mL: Resistant DAVID (MCG/ML) Serratia marcescens Ampicillin + Sulbactam SUSCEPTIBILITY, >16/8 mcg/mL: DAVID (MCG/ML) Resistant Serratia marcescens Meropenem SUSCEPTIBILITY, <=0.12 mcg/m L: [...] (MCG/ML) Serratia marcescens Ceftriaxone SUSCEPTIBILITY, <=1 mcg/mL: DAVID (MCG/ML) Susceptible Serratia marcescens Ceftazidime SUSCEPTIBILITY, <=4 mcg/mL: DAVID (MCG/ML) Susceptible Serratia marcescens Cefepime SUSCEPTIBILITY, <=2 mcg/mL: DAVID (MCG/ML) Susceptible Serratia marcescens Amikacin SUSCEPTIBILITY, <=8 mcg/mL: DAVID (MCG/ML) Susceptible Serratia marcescens Gentamicin SUSCEPTIBILITY, <=1 mcg/mL: DAVID (MCG/ML) Susceptible Serratia marcescens Tobramycin SUSCEPTIBILITY, <=1 mcg/mL: DAVID (MCG/ML) Susceptible Serratia marcescens Aztreonam SUSCEPTIBILITY, <=4 mcg/mL: DAVID (MCG/ML) Susceptible Serratia marcescens Trimethoprim + SUSCEPTIBILITY, <=0.5/9.5 mc g/mL: Sulfamethoxazole DAVID (MCG/ML) Susceptible Staphylococcus Oxacillin SUSCEPTIBILITY, <=0.06 mcg/mL: lugdunensis DAVID (MCG/ML) Susceptible Comment: Use oxacillin interpretation to predict results for anti-staphylococcal beta-lac ramey antibiotics (except ceftaroline). Staphylococcus Vancomycin SUSCEPTIBILITY, DAVID 1 mcg/mL: Ennis sceptible lugdunensis (MCG/ML) Staphylococcus Clindamycin SUSCEPTIBILITY, DAVID <=0.5 mcg/mL : lugdunensis (MCG/ML) Susceptible Staphylococcus Levofloxacin SUSCEPTIBILITY, DAVID <=0.5 mcg/mL : lugdunensis (MCG/ML) Susceptible Comment: Fluoroquinolones have a limi onel role in treatment of staphylococcal infections; c onsult Infectious Diseases if considering usage. Staphylococcus Trimethoprim + SUSCEPTIBILITY, DAVID <=0.5/9.5 mc g/mL: lugdunensis Sulfamethoxazole (MCG/ML) Susceptible Staphylococcus Minocycline SUSCEPTIBILITY, DAVID <=4 mcg/mL: lugdunensis (MCG/ML) Susceptible Staphylococcus Rifampin SUSCEPTIBILITY, DAVID <=0.5 mcg/mL : lugdunensis (MCG/ML) Susceptible Comment: Rifampin should not be used as monotherapy Staphylococcus Doxycycline SUSCEPTIBILITY, DAVID <=4 mcg/mL: lugdunensis (MCG/ML) Susceptible Toro Pena M.D. LAB MICROBIOLOGY - GENERAL O GLADYS Performing Organization Address City/[facility] Code Phon e Number [facility] - [address] (ABNORMAL) Gram Stain (07/26/2021 8:26 AM DEVELOPMENT CONSULTANT) Analysis Performed At [facility] Time Signature Gram Stain White blood 07/26/2021 DTL cells, Many. 1:18 PM DEVELOPMENT CONSULTANT (A) Gram Stain GRAM POSITIVE COCCI 07/26/2021 DTL Moderate. 1:18 PM DEVELOPMENT CONSULTANT (A) Specimen (Source) Anatomical Collection Method Collection Time Re ceived Time Location / / Volume Laterality Sinus Contents 07/26/2021 8:26 AM (Nose) DEVELOPMENT CONSULTANT Toro Pena M.D. LAB MICROBIOLOGY - GENERAL O GLADYS Performing Organization Address City/[facility] Code Phon e Number [facility] - [id number] [place] [address] (ABNORMAL) Bacterial Culture, Anaerobic + Susc (07/26/2021 8:26 AM DEVELOPMENT CONSULTANT) [facility] gist Method Time Signature Bacterial Culture yields >4 types of aerobic and/or anaerobic 07/28/2021 DT Culture, bacteria. Anaerobic bacteria not further identified. 9:42 AM DEVELOPMENT CONSULTANT Anaerobic + [facility]Source[facility] Anatomical Collection Method Collection Time Re ceived Time Location / / Volume Laterality Sinus Contents 07/26/2021 8:26 AM (Nose) DEVELOPMENT CONSULTANT Toro Pena M.D. 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) Spells Neurological (HCC) Shortness Of Breath Immunodeficiency Due To Drugs (HCC) Hypertension And Chronic Kidney Disease Stage 5 (HCC) COVID-19 Infection Colitis Cytomegalovirus (HCC) Bipolar I Disorder (HCC) Chronic 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 acetaminophen tablet 650 mg (TYLENOL) Given 07/26/2021 7:24 AM DEVELOPMENT CONSULTANT 650 mg 650 mg, oral, Once, On Shraddha 07/26/21 at 1400, For 1 dose, Pre-Op EPINEPHrine injection 30 mg (ADRENALIN) 30 mg, topical, Once in surgery, other, OR use only - soak pledget prior to nasal administration, Starting on Fri07/26/21 at 0645, For 1 dose, Intra-Op ipratropium-albuteroL 0.5-2.5 mg/3 mL nebulizer Given 07/26/2021 7:17 AM DEVELOPMENT CONSULTANT 3 mL solution 3 mL (DUONEB) 3 mL, nebulization, Once, On Shraddha 07/26/21 at 0630, For 1 dose, Pre-Op ketamine injection 10 mg (KETALAR) Given 07/26/2021 12:01 PM DEVELOPMENT CONSULTANT 10 mg 10 mg, intravenous, Once as needed, Refractory moderate pain or score 4-6 of 10, Refractory severe pain score 7-10 of 10 after fentanyl or hydromorphone administration, Pain sedation mismatch AND RASS less than -1, Starting on Shraddha 07/26/21 at 1159, For 1 dose, PACU (only) lidocaine-EPINEPHrine 1 %-1:100,000 injection Given 10:43 AM DEVELOPMENT CONSULTANT 7 mL (XYLOCAINE W/EPI) As needed, Starting on Shraddha 07/26/21 at 1043, Intra-Op metoprolol tablet 12.5 mg (LOPRESSOR) 12.5 mg, oral, Once as needed, if patien t did not take their last scheduled dose of beta georgina prior to arrival, Starting on Shraddha 07/26/21 at 0650, For 1 dose, Pre-Op, Do not give if patient does not take scheduled beta bl ockers, if patient is receiving intravenous vasopressors or inotropes, if he art rate is less than 50 beats per minute, if systolic blood pres sure is less than 90 mmHg or if diastolic blood pressure is less than 40 mmHg, or if patient has an allergy to metoprolol. oxyCODONE IR tablet 10 mg (ROXICODONE) Given 07/26/2021 11:57 AM DEVELOPMENT CONSULTANT 10 mg 10 mg, oral, Every 4 hours PRN, severe pain or score 7-10 of 10, or pain greater than comfort goal, Starting on Shraddha 07/26/21 at 1154 oxyCODONE IR tablet 5 mg (ROXICODONE) 5 mg, oral, Every 4 hours PRN, moderate pain or score 4-6 of 10, Starting on Shraddha 07/26/21 at 1154 sodium chloride 0.9 % injection 3 mL 3 mL, intravenous, Every 12 hours scheduled, First dos e on Shraddha 07/26/21 at 0900, Pre-Op, Peripheral Intravenous Catheter and Rapid Infu ronaldo Catheter, when no infusion to maintain patency documented in this encounter Active and Recently Administered Medications Times are shown in DEVELOPMENT CONSULTANT. Scheduled Medication Order 07/24/2021 07/25/2021 07/26/2021 acetaminophen tablet 1,000 mg (TYLENOL) 1220 (Given - Provider: Berenice Murphy RDemetriusNDemetrius) 1,000 mg, oral, Every 6 hours, First dos e on Shraddha 07/26/21 at 1200, Orally or per feeding tube. acetaminophen tablet 650 mg (TYLENOL) (COMPLETED) 723 (Given - Provider: Maritza Merlos R.N., Arley.Bonny.S.R.NDemetrius)1400 (Due) 650 mg, oral, Once, On Shraddha 07/26/21 at 1400, For 1 dose, Pre-Op ipratropium-albuteroL 0.5-2.5 mg/3 mL ne bulizer solution 3 mL (DUONEB) (COMPLETED) 716 (Given - Provid er: Maritza Merlos R.N., C.M.S.R.N.) 3 mL, nebulization, Once, On Shraddha 07/26/21 at 0630, For 1 dose, Pre -Op sodium chloride 0.9 % injection 3 mL 0900 (Due) 3 mL, intravenous, Every 12 hours schedu led, First dose on Shraddha 07/26/21 at 0900, Pre-Op, Peripheral Intravenous Catheter and Rapid Infusion Catheter, when no infusion to maintain patency sodium chloride 0.9 % injection 3 mL 0900 (Due) 3 mL, intravenous, Every 12 hours schedu led, First dose on Shraddha 07/26/21 at 0900, Pre-Op, Peripheral Intravenous Catheter and Rapid Infusion Catheter, when no infusion to maintain patency Continuous Medication Order 07/24/2021 07/25/2021 07/26/2021 phenylephrine 80 mcg/mL in NaCl 0.9% 250 mL infusion 0730 (Due) 0-1 mcg/kg/min ? 70.1 kg Dosing weight (0-52.575 mL/hr, rounded to 0-52.58 mL/hr), intravenous, Continuous, Starting on Shraddha 07/26/21 at 0730, 20 mg in 250 mL, Patient Type: Standard, initiate at: 0.5 mcg /kg/min., Titrate at: 0.1 mcg/kg/min. every 5 min., Goal: MAP 60 -80 PRN Medication Order 07/24/2021 07/25/2021 07/26/2021 dexAMETHasone injection 4 mg (DECADRON) 4 mg, intravenous, Once as needed, nause a, vomiting, Starting on Shraddha 07/26/21 at 1154, For 1 dose, Give only if NOT given during the pre or intraoperative period. If ondansetron ordered, give dexamethasone with first dose of ondansetron. EPINEPHrine injection 30 mg (ADRENALIN) 30 mg, topical, Once in surgery, other, OR use only - soak pledget prior to nasal administration, Starting on Shraddha 07/26/21 at 0645, For 1 dose, Intra-Op fentaNYL injection 25 mcg (SUBLIMAZE) 25 mcg, intravenous, Every 2 min PRN, Fo r pain 4 or greater (maximum 100 mcg). If max dose of Fentanyl is reached and if pain is greater than 4, discontinue Fentanyl: give Hydromorphone, Starting on Shraddha 07/26/21 at 1159, PACU (only) fentaNYL injection 25 mcg (SUBLIMAZE) 25 mcg, intravenous, Every 2 min PRN, mo derate pain or score 4-6 of 10, severe pain or score 7-10 of 10, Starting on Shraddha 07/26/21 at 0628, Pre-Op, Up to maximum total dose of 200 mcg granisetron (PF) injection 1 mg (KYTRIL) 1 mg, intravenous, Once as needed, nause a, vomiting, Starting on Shraddha 07/26/21 at 1159, For 1 dose, PACU (only), If patient does not respond to ondansetron or haloperidol. (order of antiemetic administrati on - ondansetron then haloperidol then granisetron) granisetron (PF) injection 1 mg (KYTRIL) 1 mg, intravenous, Once as needed, nause a, vomiting, Starting on Shraddha 07/26/21 at 0629, For 1 dose, Pre-Op haloperidol lactate injection 1 mg (HALDOL) 1 mg, intravenous, Every 6 hours PRN, na usea, vomiting, Starting on Shraddha 07/26/21 at 1159, For 48 hours, PACU (only), Total of 3 doses in 24 hour period. RASS must be -2 or higher to administer. If nausea and vomiting persists, move to granister on. (order of antiemetic administration - ondansetron then haloperidol then granisetron) HYDROmorphone (PF) injection 0.2 mg (DILAUDID) 0.2 mg, intravenous, Every 5 min PRN, mo derate pain or score 4-6 of 10, severe pain or score 7-10 of 10, Starting on Shraddha 07/26/21 at 1159, PACU (only), Up to maximum total dose of 2 mg ipratropium-albuteroL 0.5-2.5 mg/3 mL nebulizer solution 3 mL (D UONEB) 3 mL, nebulization, Once as needed, shor tness of breath, Starting on Shraddha 07/26/21 at 1159, For 1 dose, PACU (only) ketamine injection 10 mg (KETALAR) (COMPLETED) 1201 (Given - Provider: Berenice Murphy R.N.) 10 mg, intravenous, Once as needed, Refr actory moderate pain or score 4-6 of 10, Refractory severe pain score 7-10 of 10 after fentanyl or hydromorphone administration, Pain sedation mismatch AND RASS l ess than -1, Starting on Shraddha 07/26/21 at 1159, For 1 dose, PACU (o nly) lidocaine-EPINEPHrine 1 %-1:100,000 injection (XYLOCAINE W/EPI) (CANCELED) 1043 (Given - Provider: Toro Pena M.D. - Comment: bilateral turbinate) As needed, Starting on Shraddha 07/26/21 at 1043, Intra-Op metoprolol tablet 12.5 mg (LOPRESSOR) 12.5 mg, oral, Once as needed, if patien t did not take their last scheduled dose of beta georgina prior to arrival, Starting on Shraddha 07/26/21 at 0650, For 1 dose, Pre-Op, Do not give if patient does not emmy e scheduled beta blockers, if patient is receiving intravenous vasopressors or inotropes, if heart rate is less than 50 beats per minute, if systolic blood pressure is less than 90 mmHg or if diastolic blood pressure is less than 40 mmHg, or if patient has an allergy to metoprolol. naloxone injection 0.2 mg (NARCAN) 0.2 mg, intravenous, Once as needed, res piratory depression, Starting on Shraddha 07/26/21 at 1154, For 1 dose, For RASS Score -4 or less, respiratory rate of less than 8 breaths/min. Notify provider/service a nd rapid response team (if available at institution). ondansetron (PF) injection 4 mg (ZOFRAN) 4 mg, intravenous, Every 6 hours PRN, na usea, vomiting, Starting on Shraddha 07/26/21 at 1154, For 48 hours, Reassess for nausea or vomiting after at least 10 minutes. If nausea or vomiting persists administer next ordered antiemetic medications (or cinthia for antiemetic medication administration ondansetron then haloperidol then promethazine). oxyCODONE IR tablet 10 mg (ROXICODONE)(Linked Group 1) 1157 (Given - Provider: Berenice Murphy R.N.) 10 mg, oral, Every 4 hours PRN, severe p ain or score 7-10 of 10, or pain greater than comfort goal, Starting on Shraddha 07/26/21 at 1154 oxyCODONE IR tablet 5 mg (ROXICODONE)(Linked Group 1) 1157 (See Alternative - Provider: Berenice Murphy R.N.) 5 mg, oral, Every 4 hours PRN, moderate pain or score 4-6 of 10, Starting on Shraddha 2 at 1154 promethazine injection 6.25 mg (PHENERGAN) 6.25 mg, intravenous, Every 6 hours PRN, nausea, vomiting, Starting on Shraddha 07/26/21 at 1154, For 48 hours, RASS must be -2 or higher to administer. Reassess for nausea or vomiting after at least 10 minute s. If nausea or vomiting persists admini ster next ordered antiemetic medications (order for antiemetic medication administration ondansetron then haloperidol then promethazine) sodium chloride 0.9 % injection 10 mL 10 mL, intravenous, As needed, line care , Starting on Shraddha 07/26/21 at 0628, Pre- Op, Peripheral Intravenous Catheter and Rapid Infusion Catheter, prior to blood sampling, post blood transfusion or post blood sampling sodium chloride 0.9 % injection 3 mL 3 mL, intravenous, As needed, line care, Starting on Shraddha 2 at 0628, Pre-Op, Prior to and following infusion and between multiple consecutive infusions: sodium chloride 0.9 % injection Linked Groups Order Group 1: oxyCODONE IR tablet 5 mg (ROXICODONE)Jump to med 5 mg, oral, Every 4 hours PRN, moderate pain or score 4-6 of 10, Starting on Shraddha 07/26/21 at 1154 Or oxyCODONE IR tablet 10 mg (ROXICODONE)Jump to med 10 mg, oral, Every 4 hours PRN, severe p ain or score 7-10 of 10, or pain greater than comfort goal, Starting on Shraddha 07/26/21 at 1154 documented in this encounter Additional Health Concerns Assessment Noted Time PHQ-9 Depression Total Score: 4 11/28/2020 10:17 AM CD T documented as of this encounter Care Teams Development Coach Relationship Specialty Start Date End Date Elsewhere, Pcp PCP - General Family Medicine 07/29/[address] [facility] - Laboratory Medicine 04/12/[address] [address] documented as of this encounter
--- OUTSIDE RECORDS SUMMARY | 2022-04-13 12:08 | XMS_ITS | Encounter Summary ---
:1955 Author Organization [facility] Address [address] [place] [address] Care Team Providers Name Role Phone Elsewhere, Pcp Primary Care Provider Unavailable Reason for Visit Auth/Cert Specialty Diagnoses / Procedures Referred By Contact Refer red To Contact Diagnoses Rhinosinusitis Chronic Rhinosinusitis Chronic [J32.8] Procedures VT NSL/SINS NDSC SPHN TISS RMVL VT ENDO NSL MAX ANTROST W RMV TIS VT ENDO NSL W FRNTL SINUS EXPLOR VT SEPTO/SUBM RESEC W/WO CART GRFT VT SUBMUC RSECT TURB PRTL/COMPLT VT STRTCTC COMP-ASSIST CRNL EXTRA ENDOSCOPIC SPHENOIDOTOMY WIT H TISSUE REMOVAL ETHMOIDECTOMY ENDOSCOPY ENDOSCOPIC MAXILLARY ANTROSTOMY WITH TISSUE REMOVAL SINUSOTOMY ENDOSCOPY FRONTAL SEPTOPLASTY REDUCTION TURBINATE INFERIOR EXTRADURAL COMPUTER NAVIGATION, proceed as indicated Referral ID Status Reason Start Date Expiration Date Visits Requ ested Visits Authorized [id number] 1 1 Encounter Details Date Type Department Care Team Description 07/26/2021 Hospital Encounter RST [facility]O OR Toro Pena Rhinosinusitis Chronic [address] [facility] Sada Galvan [place], [place] [address] [facility] [phone] [place], [place] [phone] Social History Tobacco Use Types Packs/Day Years [...] at Date Recorded Male 05/16/2020 4:27 PM TOPPIECE CUTTER documented as of this encounter Last Filed Vital Signs Vital Sign Reading Time Taken Comments Blood Pressure 110/65 07/26/2021 3:57 PM TOPPIECE CUTTER Pulse 72 07/26/2021 3:57 PM TOPPIECE CUTTER Temperature 36.8 ??C (98.2 ??F) 07/26/2021 3:57 PM TOPPIECE CUTTER Respiratory Rate 15 07/26/2021 3:57 PM TOPPIECE CUTTER Oxygen Saturation 99% 07/26/2021 3:57 PM TOPPIECE CUTTER Inhaled Oxygen Concentration - - Weight 70.1 kg (154 lb 8.7 oz) 07/26/2021 6:50 AM TOPPIECE CUTTER Height 175.4 cm (5' 9.06) 07/26/2021 6:50 AM TOPPIECE CUTTER Body Mass Index 22.79 07/26/2021 6:50 AM TOPPIECE CUTTER documented in this encounter Discharge Instructions AttachmentsThe following attachments cannot be sent through Care Everywhere. Instructions After Sedation or Anesthesia for Adults (Guamanian)documented in this encounter Medications at Time of [...] DAILY capsuleIndications: Transplant Liver (HCC), Medication Therapy Embroiderer Not Anticoagulant torsemide (DEMADEX) 10 Take 30 [...] acetaminophen (TYLENOL) Take 1 tablet (500 0 /0 06/202110/12/2021 500 mg tablet mg total) by mouth every 6 (six) hours as needed for pain. budesonide (Pulmicort) Mix 1 ampule in 120 mL 07/18/19 21 07/30/2021 0.5 mg/2 mL nebulizer [...] 1 tablet (5 mg 10 tablet 0 /08/202110/13/2021 5 mg immediate release total) by mouth tabletIndications: every 4 (four) hours Acute Pain as needed for severe pain or score 7-10 of 10 Indication: Acute Pain. predniSONE (DELTASONE) TAKE 1 TABLET(5 MG) 90 tablet 3 12/202110/16/2021 5 mg tabletIndications: BY MOUTH DAILY Transplant Liver (HCC), Medication Therapy Embroiderer Not Anticoagulant UNABLE TO FIND by nasal 0 10/12/2021 (alternating) route 2 (two) times a day. Azelastine 1mg to Sinus Rinse twice daily. [facility] documented as of this encounter OR Notes Op Note - Toro Pena M.D. - 07/26/2021 8:20 AM CST Pre-op Diagnosis Rhinosinusitis Chronic Post-op Diagnosis Rhinosinusitis Chronic A rn first assistant actively participated and was necessary for [...] The patient was brought back to the [facility] [id number] and placed supine on the [...] an incision was carried out with a Faraz elevator over the head of the left inferior turbinate. We then dissected back posteriorly with a Faraz elevator. We then performed a submucosal reduction [...] care of Anesthesia for wake up. A rn first assistant actively participated and was necessary for one or more of the following: opening,exposure and visualization during the case, maintaining hemostasis, wound closure resulting in its safe and expeditious completion. IECE CUTTER documented in this encounter Plan of Treatment Upcoming Encounters Date Type Specialty Care Team Description 04/24/2022 Appointment Laboratory Medicine Angélica Granger P.A.-C. [address] [place] [phone] 04/25/2022 Office Visit Otorhinolaryngology Dex Matta APRN, C.N.PDemetrius, M.S.N. [address] [place] [phone] 05/08/2022 Appointment Laboratory Medicine Angélica Granger P.A.-C. [address] [place] [phone] 05/08/2022 Clinical Admitting/Central Communication Scheduling 05/10/2022 Appointment Radiology Jeremie Rose M.D. [address] [place] [phone] 05/10/2022 Comprehensive Visit Orthopedic Surgery Warner Graves M.D. [address] [place] [phone] 05/22/2022 Appointment Laboratory Medicine Angélica Granger P.A.-C. [address] [place] [phone] 06/05/2022 Appointment Laboratory Medicine Angélica Granger P.A.-C. [address] [place] [phone] 06/19/2022 Appointment Laboratory Medicine Angélica Granger P.A.-C. [address] [place] [phone] 07/03/2022 Appointment Laboratory Medicine Angélica Granger P.A.-C. [address] [place] [phone] 07/17/2022 Appointment Laboratory Medicine Angélica Granger P.A.-C. [address] [place] [phone] 07/31/2022 Appointment Laboratory Medicine Angélica Granger P.A.-C. [address] [place] [phone] 08/14/2022 Appointment Laboratory Medicine Angélica Granger P.A.-C. [address] [place] [phone] 08/28/2022 Appointment Laboratory Medicine Angélica Granger P.A.-C. [address] [place] [phone] documented as of this encounter Procedures Procedure Name Priority Date/Time Associated Diagnosis Comme nts SURGICAL PATHOLOGY, Routine 07/26/2021 10:34 Rhinosinusitis Ch ronic Results for this FROZEN LAB AM TOPPIECE CUTTER procedure are i n the results section. BACTERIAL CULTURE, Routine 07/26/2021 8:26 Rhinosinusitis Engine Cleaner surinder Results for this AEROBIC + SUSC AM TOPPIECE CUTTER procedure are in the results section. GRAM STAIN Routine 07/26/2021 8:26 Rhinosinusitis Chronic Re sults for this AM TOPPIECE CUTTER procedure are i n the results section. BACTERIAL CULTURE, Routine 07/26/2021 8:26 Rhinosinusitis Engine Cleaner surinder Results for this ANAEROBIC + SUSC AM TOPPIECE CUTTER procedure a re in the results section. EXTRADURAL COMPUTER 07/26/2021 7:23 Rhinosinusitis Chr onic NAVIGATION AM TOPPIECE CUTTER REDUCTION TURBINATE 07/26/2021 7:23 Rhinosinusitis Chr onic AM TOPPIECE CUTTER SEPTOPLASTY 07/26/2021 7:23 Rhinosinusitis Chronic AM TOPPIECE CUTTER SINUSOTOMY ENDOSCOPY 07/26/2021 7:23 Rhinosinusitis Ch ronic FRONTAL AM TOPPIECE CUTTER ENDOSCOPIC MAXILLARY 07/26/2021 7:23 Rhinosinusitis Ch ronic ANTROSTOMY WITH AM TOPPIECE CUTTER TISSUE REMOVAL ETHMOIDECTOMY 07/26/2021 7:23 Rhinosinusitis Chronic ENDOSCOPY AM TOPPIECE CUTTER ENDOSCOPIC 07/26/2021 7:23 Rhinosinusitis Chronic SPHENOIDOTOMY WITH AM TOPPIECE CUTTER TISSUE REMOVAL documented in this encounter Results Surgical Pathology, Frozen Lab (07/26/2021 10:34 AM TOPPIECE CUTTER) Component Value Ref Test Analysis Performed Pathologis t Range Method Time At Signature 07/31/2021 STMA 12:57 PM TOPPIECE CUTTER Report Markus Restrepo M.D. 07/31/2021 STMA electronically 12:57 PM signed by TOPPIECE CUTTER I verify that I have examined all relevant slides/materials for the specimen(s) and rendered or confirmed the diagnosis. Gross Description A. ??Received fresh in a CUSA trap labeled left sinonasal 07/31/2021 STMA contents is a 4.1 x 2.2 x 1.6 cm aggregate of pink soft 12:57 PM tissue, bone, and cartilage fragments. ??All soft tissue TOPPIECE CUTTER submitted for permanent sections. ??Grossed by Venkatesh Miller M.S., PA([facility]). B. ??Received fresh labeled right sinonasal contents is a 5.5 x 2.5 x 0.3 cm aggregate of grady-pink tissue admixed with cartilaginous and bony fragments. ??All submitted for permanent sections. ??Grossed by Bonny Camargo.S., PA([facility]). Block Summary A Left sinonasal contents 07/31/2021 STMA A1 Left sinonasal contents 1 12:57 PM A2 Left sinonasal contents 2 TOPPIECE CUTTER A3 Left sinonasal contents 3 A4 Left sinonasal contents 4 B Right sinonasal contents B1 Right sinonasal contents 1 B2 Right sinonasal contents 2 B3 Right sinonasal contents 3 B4 Right sinonasal contents 4 Interpretation FINAL DIAGNOSIS 07/31/2021 STMA 12:57 PM A. ??Sinonasal contents, left, excision: ??Benign sinonasal TOPPIECE CUTTER mucosa with acute and chronic inflammation, including mild eosinophils. ??Allergic mucin not identified. B. ??Sinonasal contents, right, excision: ??Benign sinonasal mucosa with acute and chronic inflammation, including mild eosinophils. ??Allergic mucin not identified. Specimen (Source) Anatomical Collection Method Collection Time Re ceived Time Location / / Volume Laterality Tissue (Nose) 07/26/2021 10:34 AM TOPPIECE CUTTER Tissue (Nose) 07/26/2021 11:23 AM TOPPIECE CUTTER Narrative This result has an attachment that is no t available. Toro Pena M.D. LAB SURG PATH ORDERABLES Performing Organization Address City/State/ZIP Code Phon e Number [facility] - [address] [place], [place] [address] [facility] [place] [address] [facility] [address] (ABNORMAL) Bacterial Culture, Aerobic + Susc (07/26/2021 8:26 AM TOPPIECE CUTTER) Component Value Ref Test Analysis Performed At [facility] gist Range Method Time Signature Bacterial Susceptibilities 08/01/2021 DTL Culture, requested by phone. 2:44 PM TOPPIECE CUTTER Aerobic + (A) Susc Bacterial SERRATIA MARCESCENS 08/01/2021 DTL Culture, 2+ 2:44 PM TOPPIECE CUTTER Aerobic + (A) Susc Comment: This organism may contain an inducible b eta-lactamase. Second- or third-generation cephalospori n monotherapy may result in the emergence of high-level resistance. Preferred empiric therapy, p ending antimicrobial susceptibility results, is cefepime, a f luoroquinolone, or a carbapenem, unless clinically contr aindicated. Bacterial Culture, Aerobic STREPTOCOCCUS INTERMEDIUS 08/01/2021 2:44 PM TOPPIECE CUTTER DTL + Susc 3+ (A) Comment: If susceptibilities desired, ca ll Ext. [phone] Bacterial Culture, STAPHYLOCOCCUS LUGDUNENSIS 02/2022 2:44 PM TOPPIECE CUTTER DTL Aerobic + Susc 1+ (A) Comment: [...] OR N. MENINGITI DIS 08/01/2021 2:44 PM TOPPIECE CUTTER DTL Aerobic + Susc 2+ (A) Comment: If susceptibilities desired, ca ll Ext. [phone] Specimen (Source) Anatomical Collection Method Collection Time Re ceived Time Location / / Volume Laterality Sinus Contents 07/26/2021 8:26 AM (Nose) TOPPIECE CUTTER Organism Antibiotic Method Susceptibility Serratia marcescens Ampicillin [...] - GENERAL O GLADYS Performing Organization Address City/[facility] Code Phon e Number [facility] - [address] (ABNORMAL) Gram Stain (07/26/2021 8:26 AM TOPPIECE CUTTER) Analysis Performed At [facility] Time Signature Gram Stain White blood 07/26/2021 DTL cells, Many. 1:18 PM TOPPIECE CUTTER (A) Gram Stain GRAM POSITIVE COCCI 07/26/2021 DTL Moderate. 1:18 PM TOPPIECE CUTTER (A) Specimen (Source) Anatomical Collection Method Collection Time Re ceived Time Location / / Volume Laterality Sinus Contents 07/26/2021 8:26 AM (Nose) TOPPIECE CUTTER Toro Pena M.D. LAB MICROBIOLOGY - GENERAL O GLADYS Performing Organization Address City/[facility]/ZIP Code Phon e Number [facility] - [id number] [place] [address] (ABNORMAL) Bacterial Culture, Anaerobic + Susc (07/26/2021 8:26 AM TOPPIECE CUTTER) Patholo gist Method Time Signature Bacterial Culture yields >4 types of aerobic and/or anaerobic 07/28/2021 DT Culture, bacteria. Anaerobic bacteria not further identified. 9:42 AM TOPPIECE CUTTER Anaerobic + (A) [facility] Specimen (Source) Anatomical Collection Method Collection Time Re ceived Time Location / / Volume Laterality Sinus Contents 07/26/2021 8:26 AM (Nose) TOPPIECE CUTTER Toro Pena M.D. LAB MICROBIOLOGY - GENERAL O RDTK Performing Organization Address City/State/ZIP Code Phon e Number [facility] - [address] [place], [place] [address] [facility] [place] [address] [facility] [address] documented in this encounter Visit Diagnoses Diagnosis Rhinosinusitis Chronic - Primary Transplant Liver (HCC) Stenosis Renal Artery (HCC) Spells Neurological (HCC) Shortness Of Breath Immunodeficiency Due To Drugs (HCC) Hypertension And Chronic Kidney Disease Stage 5 (HCC) COVID-19 Infection Colitis Cytomegalovirus (HCC) Bipolar I Disorder (HCC) 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 acetaminophen tablet 650 mg (TYLENOL) Given 07/26/2021 7:24 AM TOPPIECE CUTTER 650 mg 650 mg, oral, Once, On Fri07/26/21 at 1400, For 1 dose, Pre-Op EPINEPHrine injection 30 mg (ADRENALIN) 30 mg, topical, Once in surgery, other, OR use only - soak pledget prior to nasal administration, Starting on Fri07/26/21 at 0645, For 1 dose, Intra-Op ipratropium-albuteroL 0.5-2.5 mg/3 mL nebulizer Given 07/26/2021 7:17 AM TOPPIECE CUTTER 3 mL solution 3 mL (DUONEB) 3 mL, nebulization, Once, On Fri07/26/21 at 0630, For 1 dose, Pre-Op ketamine injection 10 mg (KETALAR) Given 07/26/2021 12:01 PM TOPPIECE CUTTER 10 mg 10 mg, intravenous, Once as needed, Refractory moderate pain or score 4-6 of 10, Refractory severe pain score 7-10 of 10 after fentanyl or hydromorphone administration, Pain sedation mismatch AND RASS less than -1, Starting on Shraddha 07/26/21 at 1159, For 1 dose, PACU (only) metoprolol tablet 12.5 mg (LOPRESSOR) 12.5 mg, [...] 10 mg (ROXICODONE) Given 07/26/2021 11:57 AM TOPPIECE CUTTER 10 mg 10 mg, oral, Every 4 [...] Recently Administered Medications Times are shown in TOPPIECE CUTTER. Scheduled Medication Order 07/24/2021 07/25/2021 07/26/2021 acetaminophen tablet 1,000 mg (TYLENOL) 1220 (Given - Provider: Berenice Murphy R.N.) 1,000 mg, oral, Every 6 hours, First dos e on Shraddha 07/26/21 at 1200, Orally or per feeding tube. acetaminophen tablet 650 mg (TYLENOL) (COMPLETED) 0724 (Given - Provider: Maritza Merlos R.N., C.M.S.R.N.)1400 (Due) 650 mg, oral, Once, On Shraddha 07/26/21 at 1400, For 1 dose, Pre-Op ipratropium-albuteroL 0.5-2.5 mg/3 mL ne bulizer solution 3 mL (DUONEB) (COMPLETED) 0717 (Given - Provid er: Maritza Merlos R.N., [...] 10, Starting on Shraddha 07/26/21 at 1154 promethazine injection 6.25 mg (PHENERGAN) [...] As needed, line care, Starting on Shraddha 07/26/21 at 0628, Pre-Op, Prior to and following [...] documented as of this encounter Care Teams Communications Editor Relationship Specialty Start Date End Date Elsewhere, Pcp PCP - General Family Medicine 07/29/[address] [facility] - Laboratory Medicine 04/12/20 [place] [id number] documented as of this encounter
--- OUTSIDE RECORDS SUMMARY | 2022-04-13 12:08 | XMS_ITS | Encounter Summary ---
:1955 Author Organization [facility] Address [address] [place] [address] Care Team Providers Name Role Phone Elsewhere, [...] Expiration Date Visits Requ ested Visits Authorized [id number] 1 1 Encounter Details Date Type Department Care Team Description 07/24/2021 Surgery RST [facility] OR Dario Shafer, CREATION FISTULA [address] [place], Ph.D. BRACHIOCEPHALIC [place], [place] [address] [facility] ARTERIOVENOUS. 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 aspirin 81 mg chewable Chew 81 mg daily. 0 2017 tablet atorvastatin (LIPITOR) TAKE 1 TABLET(10 MG) 90 tablet 3 10 mg tablet BY MOUTH DAILY coenzyme Q10 (CO Q-10) Take 1 capsule by 0 2017 200 mg capsule mouth daily. loratadine (CLARITIN) Take 10 mg by mouth 0 10 mg tablet at bedtime. montelukast (SINGULAIR) Take 10 mg by mouth 0 10 mg tablet at bedtime. multivitamin renal Take 1 tablet by 30 tablet 11 05/26/2021 05/26/2022 failure (DIALYVITE) mouth daily with 100-1 mg tablet dinner. amoxicillin (AMOXIL) Take 4 capsules by 0 018 500 mg capsule mouth as directed. Prior to dental procedures benzonatate (TESSALON Take 100 mg by 0 01/04/2021 PERLES) 100 mg capsule mouth. darbepoetin Inject 0.3 mL (60 1 Syringe 6 01/09/2021 michelle-polysorbate mcg total) under the (Aranesp, in skin once for 1 polysorbate,) 60 dose. Hold if Hgb mcg/0.3 mL injection greater than 11 g/dL. Give once every 28 days. ondansetron (ZOFRAN) 4 Take 1 tablet (4 mg 20 tablet 0 02/2021 mg tablet total) by mouth every 8 (eight) hours as needed for nausea or vomiting. doxazosin (CARDURA) 4 Take 1 tablet (4 mg 90 tablet 3 03/0507/25/2021 mg tabletIndications: total) by mouth at Hypertension Essential bedtime. Primary ipratropium (ATROVENT) Administer 2 sprays 30 mL [...] TAKE 3 TABLETS(90 270 tablet 3 07/05/2021 04/11/2021 (PROCARDIA XL) 30 mg 24 MG) BY MOUTH DAILY hr tabletIndications: Hypertension And Chronic Kidney Disease Stage 4 (HCC) predniSONE (DELTASONE) TAKE 1 TABLET(5 MG) 90 tablet 3 12/202110/16/2021 5 mg tabletIndications: BY MOUTH DAILY Transplant Liver (HCC), Medication Therapy Penitentiary Not Anticoagulant tacrolimus (PROGRAF) TAKE 2 CAPSULES BY 360 capsule 3 202110/16/2021 0.5 mg MOUTH TWICE DAILY capsuleIndications: Transplant Liver (HCC), Medication Therapy Pipe Coverer Not Anticoagulant UNABLE TO FIND by nasal 0 10/12/2021 (alternating) route 2 (two) times a day. Azelastine 1mg to Sinus Rinse twice daily. Advanced RX doxycycline monohydrate Take 1 tablet (100 20 tablet 0 08/202108/05/2021 (ADOXA) 100 mg tablet mg total) by mouth 2 (two) times a day for 10 days. ganciclovir 90 mg in Infuse 90 mg into a 1 each 0 202007/25/2021 D5W 100 mL IVPB venous catheter 3 (three) times a week. Administer after dialysis on dialysis days. sodium chloride 0.9 % Infuse 5 [...] magnesium, and 400 IU of vitamin D oxyCODONE (ROXICODONE) Take 1 tablet (5 mg 10 tablet 0 /08/202110/13/2021 5 mg immediate release total) by mouth tabletIndications: every 4 (four) hours Acute Pain as needed for severe pain or score 7-10 of 10 Indication: Acute Pain. Spiriva Respimat 2.5 INHALE 2 PUFFS BY 4 g 0 01/09/20 21 07/26/2021 mcg/actuation inhaler MOUTH DAILY documented as of this encounter OR Notes Op Note - Dario Shafer M.D., Ph.D. 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 Findings As expected. Complications None Description of Procedure Creation of right upper extremity brachiocephalic arteriovenous fistula Following induction of adequate sedation for local anesthesia, the right upper extremity was preppedand draped sterilely and a surgical pause was performed. A skin incision was made approximately 1 cmdistal to the antecubital crease. Dissection was carried down through the subcutaneous tissue, identifying the cephalic vein. The vein appeared to be of suitable quality for fistula creation. The vein was exposed approximately 3 cm in length. Tributaries to the cephalic vein were ligated with 3-0 silkties. We then addressed exposure of the brachial artery. The tendinous attachment over the artery was divided with electrocautery and the brachial artery was identified. Venae comitantes overlying the artery were identified, mobilized, and ligated with 4-0 silk ligatures. The artery was exposed approximately 2 cm in length above the level of the brachial artery bifurcation. The cephalic vein was brought end-to-side to the brachial artery with vessel loops. The vessels were occluded and flushed with heparin prior to sewing the anastomosis. The cephalic vein outflow easily accommodated a 4-mm Garrettdilator. A 0.7-cm arteriotomy was performed. An end-to-side anastomosis was sewn with running 7-0 Prolene suture. Clamps were released, and excellent flow was noted across the fistula with a thrill in the venous outflow vein in the upper arm. There was a pulse palpable over the radial artery at the wrist following completion of the anastomosis. Flow of 460 mL/minute was measured within the fistula vein outflow using a 4 mm Transonic probe. The subcutaneous tissues were closed with interrupted 3-0 Vicryl sutures. The skin edges were closed with a running 4-0 Monocryl intracuticular suture. Steri-Strips and a sterile dressing were applied to the incision. The patient left the operating room in stable condition with a patent brachiocephalic fistula. Dario Shafer M.D., Ph.D. Edited by: Fe Holland, [employer] Sr. 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 [address] [place] [phone] 04/25/2022 Office Visit Otorhinolaryngology Dex Matta APRN, CDemetriusNDemetriusP., M.S.N. [address] [place] [phone] 05/08/2022 Appointment Laboratory Medicine Angélica Granger P.A.-C. [address] [place] [phone] 05/08/2022 Clinical Admitting/Central Communication Scheduling 05/10/2022 Appointment Radiology Jeremie Rose M.D. [address] [place] [phone] 05/10/2022 Comprehensive Visit Orthopedic Surgery Warner Graves M.D. [address] [place] [phone] 05/22/2022 Appointment Laboratory Medicine Angélica Granger P.A.-C. [address] [place] [phone] 06/05/2022 Appointment Laboratory Medicine Angélica Granger P.A.-C. [address] [place] [phone] 06/19/2022 Appointment Laboratory Medicine Angélica Granger P.A.-C. [address] [place] [phone] 07/03/2022 Appointment Laboratory Medicine Angélica Granger P.A.-C. [address] [place] [phone] 07/17/2022 Appointment Laboratory Medicine Angélica Granger P.A.-C. [address] [place] [phone] 07/31/2022 Appointment Laboratory Medicine Angélica Granger P.A.-C. [address] [place] [phone] 08/14/2022 Appointment Laboratory Medicine Angélica Granger P.A.-C. [address] [place] [phone] 08/28/2022 Appointment Laboratory Medicine Angélica Granger P.A.-C. [address] [place] [phone] documented as of this encounter Procedures Procedure Name Priority Date/Time Associated Diagnosis Comme nts ADULT OXYGEN THERAPY Routine 07/24/2021 11:18 AM BUSINESS BANKING MANAGER CREATION FISTULA 07/24/2021 8:45 AM Chronic Failure Re nal BRACHIOCEPHALIC BUSINESS BANKING MANAGER End Stage Renal ARTERIOVENOUS Disease Dialysis Dependent (HCC) documented in this encounter Visit Diagnoses Diagnosis Chronic Failure Renal End Stage Renal Di sease Dialysis Dependent (HCC) - Primary Chronic Failure Renal End Stage Renal Di sease Dialysis Dependent (HCC) documented in this encounter Admitting Diagnoses Diagnosis Chronic Failure Renal End Stage Renal Di sease Dialysis Dependent (HCC) documented in this encounter Administered Medications Inactive Administered Medications - up to 3 most recent administrations Medication Order MAR Action Action Date Dose Rate Site heparin 10 Units/mL in NaCl 0.9% 100 mL flush solution 100 mL, other, Once in surgery, OR use o nly, Starting on Fri07/24/21 at 0746, For 1 dose, Intra-Op, *Flush/Irrigation use only* lactated ringers Continued from OR 07/24/2021 11:29 AM 20 mL/hr 20 mL/hr 20 mL/hr, intravenous, BUSINESS BANKING MANAGER Continuous, Starting on Fri07/24/21 at 0930, PACU & Post-Op lidocaine 10 mg/mL (1 %) injection (XYLO DAVID) Given 07/24/2021 11:01 AM BUSINESS BANKING MANAGER 7 mL As needed, Starting on Fri07/24/21 at 1100, Intra-Op Given 07/24/2021 11:00 AM BUSINESS BANKING MANAGER 8 mL oxyCODONE IR tablet 10 mg (ROXICODONE) 10 mg, oral, Every 4 hours PRN, severe p ain or score 7-10 of 10, Starting on Fri07/24/21 at 0853, Administer if pain is un relieved by acetaminophen. Do not give more than 10 mg of oxycodone in 4 hours. Begi n oral narcotics ONLY when tolerating oral diet. oxyCODONE IR tablet 5 mg (ROXICODONE) 5 mg, oral, Every 4 hours PRN, moderate pain or score 4-6 of 10, Starting on Fri07/24/21 at 0853, Administer if pain is un relieved by acetaminophen. May repeat dose once after 1 hour for persistent pain no t to exceed 10 mg in 4 hours. Begin oral narcotics ONLY when tolerating oral diet. vancomycin in NaCl 0.9 % IVPB 1,000 Given 07/24/2021 8:15 AM BUSINESS BANKING MANAGER 1,000 mg 200 mL/hr mg 1,000 mg (rounded from 1,077 mg = 15 mg/kg ? 71.8 kg Adjusted weight), intravenous, at 200 mL/hr, Administer over 60 Minutes, Once, On Fri07/24/21 at 0815, For 1 dose, Pre-Op, Administer within 2 hours prior to surgical incision, Drug Monitoring Program: Pharmacist to adjust medication dosing based on indication and drug clearance factors., Indications: Prophylaxis, surgical documented in this encounter Active and Recently Administered Medications Times are shown in BUSINESS BANKING MANAGER. Scheduled Medication Order 07/22/2021 07/23/2021 07/24/2021 acetaminophen tablet 1,000 mg (TYLENOL) 1200 (Due) 1,000 mg, oral, 4 times daily, First dose on Fri07/24/21 at 1200 vancomycin in NaCl 0.9 % IVPB 1,000 mg (COMPLETED) 0815 (Given - Provider: Bernie Geller R.N.) 1,000 mg (rounded from 1,077 mg = 15 mg/ kg ? 71.8 kg Adjusted weight), intravenous, at 200 mL/hr, Administer over 60 Minutes, Once, On Fri07/24/21 at 0815, For 1 dose, Pre-Op, Administer within 2 hours prior to surgical incision, Drug Monitor ing Program: Pharmacist to adjust medication dosing based on indication and drug clearance factors., Indications: Prophylaxis, surgical Continuous Medication Order 07/22/2021 07/23/2021 07/24/2021 lactated ringers 1129 (Continued from OR - Provider: Manda N Rindels, R.N.) 20 mL/hr, intravenous, Continuous, Start ing on Fri07/24/21 at 0930, PACU & Post-Op PRN Medication Order 07/22/2021 07/23/2021 07/24/2021 haloperidol lactate injection 1 mg (HALDOL) 1 mg, intravenous, Every 6 hours PRN, na usea, vomiting, Starting on Fri07/24/21 at 0853, For 48 hours, Total of 3 doses in 24 hour period. RASS must be -2 or higher to administer. Reassess for nausea or vomiting after at least 10 minutes. If n ausea or vomiting persists administer next ordered antiemetic medications (order for antiemetic medication administration ondansetron then haloperidol then promethazine) heparin 10 Units/mL in NaCl 0.9% 100 mL flush solution 100 mL, other, Once in surgery, OR use o nly, Starting on Fri07/24/21 at 0746, For 1 dose, Intra-Op, *Flush/Irrigation use only* lidocaine 10 mg/mL (1 %) injection (XYLOCAINE) (CANCELED) 1100 (Given - Provider: Krishna Pizarro.B.S.)1101 (Given - Provider: Simba PizarroB.S.) As needed, Starting on Fri07/24/21 at 1100, Intra-Op oxyCODONE IR tablet 10 mg (ROXICODONE)(Linked Group 1) 10 mg, oral, Every 4 hours PRN, severe p ain or score 7-10 of 10, Starting on Fri07/24/21 at 0853, Administer if pain is unrelieved by acetaminophen. Do not give more than 10 mg of oxycodone in 4 hours. B egin oral narcotics ONLY when tolerating oral diet. oxyCODONE IR tablet 5 mg (ROXICODONE)(Linked Group 1) 5 mg, oral, Every 4 hours PRN, moderate pain or score 4-6 of 10, Starting on Fri07/24/21 at 0853, Administer if pain is unrelieved by acetaminophen. May repeat dose once after 1 hour for persistent pain not to exceed 10 mg in 4 hours. Begin or al narcotics ONLY when tolerating oral diet. promethazine injection 6.25 mg (PHENERGAN) 6.25 mg, intravenous, Every 6 hours PRN, nausea, vomiting, Starting on Fri07/24/21 at 0853, For 48 hours, RASS must be -2 or higher to administer. Reassess for nausea/vomiting after at least 10 minutes. If nausea or vomiting persists administe r next ordered antiemetic medications (order for antiemetic medication administration ondansetron then droperidol then promethazine). Linked Groups Order Group 1: oxyCODONE IR tablet 5 mg (ROXICODONE)Jump to med 5 mg, oral, Every 4 hours PRN, moderate pain or score 4-6 of 10, Starting on Fri07/24/21 at 0853
Administer if pain is unrelieved by acetaminophen. May repeat dose once after 1 hour for persiste nt pain not to exceed 10 mg in 4 hours. Begin oral narcotics ONLY when tolerating oral diet.
Or oxyCODONE IR tablet 10 mg (ROXICODONE)Jump to med 10 mg, oral, Every 4 hours PRN, severe p ain or score 7-10 of 10, Starting on Fri07/24/21 at 0853
Administer if pain is unrelieved by acetaminophen. Do not give more than 10 mg of oxycodone in 4 hours. Begin oral narcotics ONLY when to lerating oral diet.
documented in this encounter Additional Health Concerns Assessment Noted Time PHQ-9 Depression Total Score: 4 11/28/2020 10:17 AM CD T documented as of this encounter Care Teams Motor Vehicle Emissions Inspector Relationship Specialty Start Date End Date Elsewhere, Pcp PCP - General Family Medicine 07/29/17 [facility] - Laboratory Medicine 04/12/[address] [address] documented as of this encounter
--- OUTSIDE RECORDS SUMMARY | 2022-04-13 12:08 | XMS_ITS | Encounter Summary ---
:1955 Author Organization [facility] Address [address] [place] [address] Care Team Providers Name Role Phone Elsewhere, Pcp Primary Care Provider Unavailable Encounter Details Date Type Department Care Team Description 07/23/2021 Lab Department of [facility] Holm Con tact With And (Suspected) Exposure To COVID-19; Medicine, [facility].Louie Encounter For Preprocedural Laboratory E xamination (COVID-19) [facility] in [place] [address] [address] [place], [place] [address] [facility] [phone] [place] [address] [phone] Social History Tobacco Use Types Packs/Day Years [...] at Date Recorded Male 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 [address] [place] [phone] 04/25/2022 Office Visit Otorhinolaryngology Dex Matta, RAMONA, C.N.P., M.S.N. [address] [place] [address] [phone] 05/08/2022 Appointment Laboratory Medicine Angélica Granger, P.A.-C. [address] [place] [phone] 05/08/2022 Clinical Admitting/Central Communication Scheduling 05/10/2022 Appointment Radiology Jeremie Rose M.D. [address] [place] [phone] 05/10/2022 Comprehensive Visit Orthopedic Surgery Warner Graves M.D. [address] [place] [phone] 05/22/2022 Appointment Laboratory Medicine Angélica Granger P.A.-C. [address] [place] [address] [phone] 06/05/2022 Appointment Laboratory Medicine Angélica Granger P.A.-C. [address] [place] [phone] 06/19/2022 Appointment Laboratory Medicine Angélica Granger P.A.-C. [address] [place] [phone] 07/03/2022 Appointment Laboratory Medicine Angélica Granger P.A.-C. [address] [place] [phone] 07/17/2022 Appointment Laboratory Medicine Angélica Granger P.A.-C. [address] [place] [phone] 07/31/2022 Appointment Laboratory Medicine Angélica Granger P.A.-C. [address] [place] [phone] 08/14/2022 Appointment Laboratory Medicine Angélica Granger P.A.-C. [address] [place] [phone] 08/28/2022 Appointment Laboratory Medicine Angélica Granger P.A.-C. [address] [place] [phone] documented as of this encounter Procedures Procedure Name Priority Date/Time Associated Diagnosis Comme nts SARS CORONAVIRUS-2 Routine 07/23/2021 9:20 AM Contact With And Results for this RNA, V CLARK DRIVER (Suspected) Exposure procedu re are in To COVID-19 the results Encounter For section. Preprocedural Laboratory Examination (COVID-19) documented in this encounter Results SARS Coronavirus-2 RNA, V Asymptomatic (07/23/2021 9:20 AM CLARK DRIVER) [facility] Method Time Signature SARS-CoV-2 Swab, 07/23/2021 [facility] Specimen Nasopharynx 8:59 PM CLARK DRIVER Source SARS CoV-2 Undetected Undetected 07/23/2021 [facility] RNA, TMA 8:59 PM CLARK DRIVER Comment: SARS-CoV-2 RNA absent. This result does not rule out COVID-19 in the patient, as the sensitivity of the test depends o n the timing of the specimen collection and the quality of the specim en. Result should be correlated with patient's history and clinical presentat ion. ----ADDITIONAL INFORMATION---- This molecular amplification test was pe rformed using the Aptima SARS-CoV-2 assay ([employer] on the Squee[employer] tem under emergency use authorization (EUA) by the U.S. Food and Drug Administ ration. Fact sheets for this EUA assay can be fo und at the following links: For Healthcare Providers: https://www.fd a.gov/media/444444/download For Patients: https://www.fda.gov/media/ 260829/download Specimen Anatomical Collection Method Collection Time Receive d Time (Source) Location / / Volume Laterality Varies 07/23/2021 9:20 AM 3:47 (Nasopharynx) CLARK DRIVER PM CLARK DRIVER Toro Pena M.D. LAB MICROBIOLOGY - GENERAL O RDERABLES Performing Organization Address City/State/ZIP Code Phon e Number [facility]- [address] [place] [id number] [place] [address] [place] [address] System in [address] documented in this encounter Visit Diagnoses Diagnosis Contact With And (Suspected) Exposure To COVID-19 Encounter For Preprocedural Laboratory E xamination (COVID-19) documented in this encounter Additional Health Concerns Infection Onset Date Last Indicated Resolved Time COVID19 Pending 07/22/2021 07/23/2021 07/23/2021 8:59 PM CLARK DRIVER Assessment Noted Time PHQ-9 Depression Total Score: 4 11/28/2020 10:17 AM CD T documented as of this encounter Care Teams Professor Of Marketing Relationship Specialty Start Date End Date Elsewhere, Pcp PCP - General Family Medicine 07/29/17 [facility] - Laboratory Medicine 04/12/[address] [address] documented as of this encounter
--- OUTSIDE RECORDS SUMMARY | 2022-04-13 12:08 | XMS_ITS | Encounter Summary ---
:1955 Author Organization [facility] Address [address] [place] [id number] Care Team Providers Name Role Phone Elsewhere, [...] Expiration Date Visits Requ ested Visits Authorized [id number] 1 1 Encounter Details Date Type Department Care Team Description 07/24/2021 Hospital Encounter Outpatient Surgery Unit Zulma Shafer, in [facility] jose Tomlin, Ph.D. 200 [facility] 200 [place] [phone] [place], [place] [phone] (Wo rk) Social History Tobacco Use Types [...] at Date Recorded Male 05/16/2020 4:27 PM INBOUND SALES ADVISOR documented as of this encounter Last Filed Vital Signs Vital Sign Reading Time Taken Comments Blood Pressure 124/74 07/24/2021 12:29 PM INBOUND SALES ADVISOR Pulse 59 07/24/2021 11:31 AM INBOUND SALES ADVISOR Temperature 36.5 ??C (97.7 ??F) 07/24/2021 11:51 AM INBOUND SALES ADVISOR Respiratory Rate 14 07/24/2021 11:51 AM INBOUND SALES ADVISOR Oxygen Saturation 94% 07/24/2021 11:51 AM INBOUND SALES ADVISOR Inhaled Oxygen Concentration - - Weight - [...] MOUTH DAILY Transplant Liver (HCC), Medication Therapy Photocomposing Keyboard Operator Not Anticoagulant tacrolimus (PROGRAF) TAKE 2 CAPSULES BY 360 capsule 3 202110/16/2021 0.5 mg MOUTH TWICE DAILY capsuleIndications: Transplant Liver (HCC), Medication Therapy Jail Not Anticoagulant UNABLE TO FIND by nasal [...] Stage Renal Disease Dialysis Dependent (HCC) A first front ventilator actively participated and was necessary for one [...] Shafer M.D., Ph.D. Edited by: Fe Holland, triptap Management Sr. Automobile Mechanic Supervisor 09/03/21 3:56 PM CDT Brief Op Note - Eliu Murcia M.B.B.S. 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 [address] [place] [phone] 04/25/2022 Office Visit Otorhinolaryngology Dex Matta APRN, CDemetriusNDemetriusP., M.S.N. [address] [place] [phone] 05/08/2022 Appointment Laboratory Medicine Angélica Granger P.A.-C. [address] [place] [phone] 05/08/2022 Clinical Admitting/Central Communication Scheduling 05/10/2022 Appointment Radiology Jeremie Rose M.D. [address] [place] [phone] 05/10/2022 Comprehensive Visit Orthopedic Surgery Warner Graves M.D. [address] [place] [phone] 05/22/2022 Appointment Laboratory Medicine Angélica Granger P.A.-C. [address] [place] [phone] 06/05/2022 Appointment Laboratory Medicine Angélica Granger P.A.-C. [address] [place] [phone] 06/19/2022 Appointment Laboratory Medicine Angélica Granger P.A.-C. [address] [place] [phone] 07/03/2022 Appointment Laboratory Medicine Angélica Granger P.A.-C. [address] [place] [phone] 07/17/2022 Appointment Laboratory Medicine Angélica Granger P.A.-C. [address] [place] [phone] 07/31/2022 Appointment Laboratory Medicine Angélica Granger P.A.-C. [address] [place] [phone] 08/14/2022 Appointment Laboratory Medicine Angélica Granger P.A.-C. [address] [place] [phone] 08/28/2022 Appointment Laboratory Medicine Angélica Granger P.A.-C. [address] [place] [phone] documented as of this encounter Procedures Procedure Name Priority Date/Time Associated Diagnosis Comme nts ADULT OXYGEN THERAPY Routine 07/24/2021 11:18 AM INBOUND SALES ADVISOR CREATION FISTULA 07/24/2021 8:45 AM Chronic Failure Re nal BRACHIOCEPHALIC INBOUND SALES ADVISOR End Stage Renal ARTERIOVENOUS Disease Dialysis Dependent (HCC) documented in this encounter Visit Diagnoses Diagnosis Chronic Failure Renal End Stage Renal Di sease Dialysis Dependent (HCC) - Primary documented in this encounter Admitting Diagnoses Diagnosis [...] 20 mL/hr 20 mL/hr 20 mL/hr, intravenous, INBOUND SALES ADVISOR Continuous, Starting on Fri07/24/21 at 0930, PACU & Post-Op oxyCODONE IR tablet 10 mg (ROXICODONE) 10 [...] % IVPB 1,000 Given 07/24/2021 8:15 AM INBOUND SALES ADVISOR 1,000 mg 200 mL/hr mg 1,000 mg [...] Recently Administered Medications Times are shown in INBOUND SALES ADVISOR. Scheduled Medication Order 07/22/2021 07/23/2021 07/24/2021 acetaminophen [...] 1129 (Continued from OR - Provider: Manda Julian R.N.) 20 mL/hr, intravenous, Continuous, Start ing [...] injection (XYLOCAINE) (CANCELED) 1100 (Given - Provider: Lynn PizarroB.B.S.)1101 (Given - Provider: Simba PizarroB.S.) As needed, [...] documented as of this encounter Care Teams Votator Machine Operator Relationship Specialty Start Date End Date Elsewhere, Pcp PCP - General Family Medicine 07/29/17 [facility] - Laboratory Medicine 04/12/[address] [address] documented as of this encounter
--- OUTSIDE RECORDS SUMMARY | 2022-04-13 12:08 | XMS_ITS | Encounter Summary ---
:1955 Author Organization [facility] Address [address] [place] [address] Care Team Providers Name Role Phone Elsewhere, Pcp Primary Care Provider Unavailable Encounter Details Date Type Department Care Team Description 07/21/2021 Lab Department of [facility] Dario Shafer Fai lure Renal End Stage Medicine, [facility] Sada, Ph.D. ([address] [phone] [place] [address] [phone] Social History Tobacco Use Types Packs/Day Years [...] More than 4 times per year 12/15/2021 mormonism services? Do you belong to any clubs [...] Date Recorded Male 05/16/2020 4:27 PM BUILDING SERVICES COORDINATOR documented as of this encounter Plan of Treatment Upcoming Encounters Date Type Specialty Care Team Description 04/24/2022 Appointment Laboratory Medicine Angélica Granger, P.A.-C. [address] [place] [phone] 04/25/2022 Office Visit Otorhinolaryngology Dex Matta, RAMONA, C.N.P., M.S.N. [address] [place] [phone] 05/08/2022 Appointment Laboratory Medicine Angélica Granger, P.A.-C. [address] [place] [phone] 05/08/2022 Clinical Admitting/Central Communication Scheduling 05/10/2022 Appointment Radiology Jeremie Rose M.D. [address] [place] [phone] 05/10/2022 Comprehensive Visit Orthopedic Surgery Warner Graves M.D. [address] [place] [phone] 05/22/2022 Appointment Laboratory Medicine Angélica Granger P.A.-C. [address] [place] [phone] 06/05/2022 Appointment Laboratory Medicine Angélica Granger P.A.-C. [address] [place] [phone] 06/19/2022 Appointment Laboratory Medicine Angélica Granger P.A.-C. [address] [place] [phone] 07/03/2022 Appointment Laboratory Medicine Angélica Granger P.A.-C. [address] [place] [phone] 07/17/2022 Appointment Laboratory Medicine Angélica Granger P.A.-C. [address] [place] [phone] 07/31/2022 Appointment Laboratory Medicine Angélica Granger P.A.-C. [address] [place] [phone] 08/14/2022 Appointment Laboratory Medicine Angélica Granger P.A.-C. [address] [place] [phone] 08/28/2022 Appointment Laboratory Medicine Angélica Granger P.A.-C. [address] [place] [phone] documented as of this encounter Procedures Procedure Name Priority Date/Time Associated Diagnosis Comme nts SARS CORONAVIRUS-2 Routine 07/21/2021 9:21 AM Failure Renal En d Results for this RNA, V BUILDING SERVICES COORDINATOR Stage (HCC) procedure are i n the results section. documented in this encounter Results SARS Coronavirus-2 RNA, V Asymptomatic (07/21/2021 9:21 AM BUILDING SERVICES COORDINATOR) [facility] Method Time Signature SARS-CoV-2 Swab, 07/21/2021 MKTO Specimen Nasopharynx 9:41 PM BUILDING SERVICES COORDINATOR Source SARS CoV-2 Undetected Undetected 07/21/2021 MKTO RNA, TMA 9:41 PM BUILDING SERVICES COORDINATOR Comment: SARS-CoV-2 RNA absent. This result does not rule out COVID-19 in the patient, as the sensitivity of the test depends o n the timing of the specimen collection and the quality of the specim en. Result should be correlated with patient's history and clinical presentat ion. ----ADDITIONAL INFORMATION---- This molecular amplification test was pe rformed using the Aptima SARS-CoV-2 assay ([employer] on the [employer] tem under emergency use authorization (EUA) by the U.S. Food and Drug Administ ration. Fact sheets for this EUA assay can be fo und at the following links: For Healthcare Providers: https://www.fd a.gov/media/128083/download For Patients: https://www.fda.gov/media/ 875627/download Specimen Anatomical Collection Method Collection Time Receive d Time (Source) Location / / Volume Laterality Varies 07/21/2021 9:21 AM 4:38 (Nasopharynx) BUILDING SERVICES COORDINATOR PM BUILDING SERVICES COORDINATOR Dario Shafer M.D., Ph.D. LAB MICROBIOLOGY - GENERAL ORDERABLES Performing Organization Address City/State/ZIP Code Phon e Number [facility]- [address] [place] [address] [place] [address] [address] in [address] documented in this encounter Visit Diagnoses Diagnosis Failure Renal End Stage (HCC) documented in this encounter Additional Health Concerns Infection Onset Date Last Indicated Resolved Time COVID19 Pending 07/20/2021 07/21/2021 07/21/2021 9:42 PM BUILDING SERVICES COORDINATOR Assessment Noted Time PHQ-9 Depression Total Score: 4 11/28/2020 10:17 AM CD T documented as of this encounter Care Teams Heel Coverer Relationship Specialty Start Date End Date Elsewhere, Pcp PCP - General Family Medicine 07/29/17 [facility] - Laboratory Medicine 04/12/20 [place] [phone] documented as of this encounter
--- OUTSIDE RECORDS SUMMARY | 2022-04-13 12:08 | XMS_ITS | Encounter Summary ---
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 [address] [place] [address] Referral ID Status Reason Start Date Expiration Date Visits Requ ested Visits Authorized [id number] Closed 07/23/2021 07/23/2022 1 1 Scheduling Instructions ROBIN- please call patient to schedule robin ual evaluation. 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 [address] [place] [address] Referral ID Status Reason Start Date Expiration Date Visits Requ ested Visits Authorized [id number] Closed 07/23/2021 07/23/2022 1 1 Scheduling Instructions ROBIN- please call patient to schedule robin ual evaluation. 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 [address] [place] [address] Referral ID Status Reason Start Date Expiration Date Visits Requ ested Visits Authorized [id number] Closed 07/23/2021 07/23/2022 1 1 Scheduling Instructions ROBIN- please call patient to schedule robin ual evaluation. 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 [address] [place] [address] Referral ID Status Reason Start Date Expiration Date Visits Requ ested Visits Authorized [id number] Closed 07/23/2021 07/23/2022 1 1 Scheduling Instructions ROBIN- please call patient to schedule robin ual evaluation. 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 Kidney Disease Stage 4 Glomerular Filtration Rate 15-29 (HCC); [place], [place] [address] Chronic Failure Renal End Stage Renal Di sease Dialysis Dependent (HCC); [address] [phone] Other Secondary Hypertension ; [place] [address] (Work) Other Bipolar Disorder (HCC) ; [phone] Hyperlipidemia; Chronic Obstruc tive Pulmonary Disease Without Exacerbation (HCC); Anemia; [facility] Social History Tobacco Use Types [...] at Date Recorded Male 05/16/2020 4:27 PM 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 [address] [place] [phone] 04/25/2022 Office Visit Otorhinolaryngology Dex Matta APRN, C.N.P., M.S.N. [address] [place] [phone] 05/08/2022 Appointment Laboratory Medicine Angélica Granger P.A.-C. [address] [place] [phone] 05/08/2022 Clinical Admitting/Central Communication Scheduling 05/10/2022 Appointment Radiology Jeremie Rose M.D. [address] [place] [phone] 05/10/2022 Comprehensive Visit Orthopedic Surgery Warner Graves M.D. [address] [place] [phone] 05/22/2022 Appointment Laboratory Medicine Angélica Granger P.A.-C. [address] [place] [phone] 06/05/2022 Appointment Laboratory Medicine Angélica Granger P.A.-C. [address] [place] [phone] 06/19/2022 Appointment Laboratory Medicine Angélica Granger P.A.-C. [address] [place] [phone] 07/03/2022 Appointment Laboratory Medicine Angélica Granger P.A.-C. [address] [place] [phone] 07/17/2022 Appointment Laboratory Medicine Angélica Granger P.A.-C. [address] [place] [phone] 07/31/2022 Appointment Laboratory Medicine Angélica Granger P.A.-C. [address] [place] [phone] 08/14/2022 Appointment Laboratory Medicine Angélica Granger P.A.-C. [address] [place] [phone] 08/28/2022 Appointment Laboratory Medicine Angélica Granger P.A.-C. 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) Other Secondary Hypertension Other Bipolar Disorder (HCC) Hyperlipidemia Chronic Obstructive Pulmonary Disease Without Exacerbation (HCC) Anemia Screening Examination Prostate Cancer Transplant Liver Outpatient Referral Routine Transplant Liver Expected: office visit (HCC) 11/26/2021 (clinic) Medication Therapy (Approxim ate), Intermediate Not Expires: Anticoagulant 10/20/2022 Screening Examination Skin Cancer 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) Other Secondary Hypertension Other Bipolar Disorder (HCC) Hyperlipidemia Chronic Obstructive Pulmonary Disease Without Exacerbation (HCC) Anemia Screening Examination Prostate Cancer Transplant Liver Outpatient Referral Routine Transplant Liver Expected: office visit (HCC) 11/26/2021 (clinic) Medication Therapy (Approxim ate), Investigation Division Captain Not Expires: Anticoagulant 10/20/2022 Screening Examination Skin Cancer 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) Other Secondary Hypertension Other Bipolar Disorder (HCC) Hyperlipidemia Chronic Obstructive Pulmonary Disease Without Exacerbation (HCC) Anemia Screening Examination Prostate Cancer Pulmonary Medicine Outpatient Referral Routine Transplant Live r Expected: office visit (HCC) 11/26/2021 (clinic) Medication Therapy (Approxim ate), Investigation Division Captain Not Expires: Anticoagulant 10/20/2022 Screening Examination Skin Cancer 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 Aortic calcifications. Otoniel Linares M.D. IMG DIAGNOSTIC IMAGING [facility] US Liver Transplant (12/05/2021 10:33 AM CDT) [...] IPMN. 3. Chronic parenchymal renal disease. Otoniel Linares M.D. IMG US PROCEDURES (ABNORMAL) Protein/Creatinine Ratio, Random, Urine (12/03/2021 8:23 [...] Urine (Urine, 12/03/2021 8:23 AM 12/04/19 22 9:17 Midstream) CDT AM CDT Otoniel Linares M.D. LAB URINE ORDERABLES Performing Organization Address City/State/ZIP Code Phon e Number [address] [phone] [place] [address] System in [address] [address] System in [place] [address] [address] (ABNORMAL) Albumin, Random, Urine (12/03/2021 8:23 AM CDT) Patholo gist Method Time Signature Microalbumin 92.5 mg/L 12/03/2021 [...] Organization Address City/State/ZIP Code Phon e Number [address] [address] [place] [address] System in [address] (ABNORMAL) Urinalysis with Microscopic: Urine, Midstream (12/03/2021 8:23 AM CDT) Analysis [facility] At [facility] Time Signature Source Urine, Urine, 12/03/2021 [facility] [...] 8.0 12/03/2021 9:07 AM CDT CN[facility] Specific [place] 1.010 1.001 - 1.035 12/03/2021 9:07 AM [...] Organization Address City/State/ZIP Code Phon e Number [address] [address] [place] [address] System [address] Urinalysis with Microscopic: Urine, Voided (12/03/2021 8:23 AM CDT) P athologist Signature Source CANCELED 12/03/2021 CN[facility] 8:50 [...] Result canceled by the ancillar y. Specific [place] CANCELED 12/03/2021 8:50 AM CDT CNFL Comment: [...] Urine (Urine, 12/03/2021 8:23 AM 12/04/19 8:23 Voided) CDT AM CDT Narrative [facility] - 12/03/2021 8:50 AM CDT Urinalysis w/ Microscopic was cancelled on 12/03/2021 at 08:50; Duplicate test request. Otoniel Linares M.D. LAB URINE ORDERABLES Performing Organization Address City/State/ZIP Code Phon e Number [facility] [address] [place] [address] [place] [address] System in [place] [address] [address] (ABNORMAL) Parathyroid Hormone (PTH) (12/03/2021 7:56 AM [...] Code Phon e Number [facility]- [address] [place] [phone] [place] [address] System in [address] (ABNORMAL) Cystatin C with Estimated GFR, S [...] M.D. LAB BLOOD ADD-ON Performing Organization Address City/[facility] Phon e Number [facility] - [address] [place], [place] [address] [place] [address] Laboratories-[facility] [address] (ABNORMAL) Tacrolimus, B (12/03/2021 7:56 AM CDT) P athologist Signature Tacrolimus, B 1.6 (L) 5.0-15.0 12/04/2021 [facility] (Trough) 11:38 AM CDT ng/mL Comment: ----ADDITIONAL [...] and its performa nce characteristics determined by [facility] in a manner consistent with CLIA requirements. This test has not been cleared or approved by the U.S. Mer d and Drug Administration. Specimen Anatomical Collection Method Collection Time Receive d Time (Source) Location / / Volume Laterality Blood (Blood, 12/03/2021 7:56 AM 12/05/19 7:29 Venous) CDT AM CDT Otoniel Linares M.D. LAB BLOOD NON ADD-ON Performing Organization Address City/[facility] Code Phon e Number [facility] [address] [place] [address] [facility] [place] [address] Laboratory Medicine and Pathology [address] [place] PSA (Prostate-Specific Antigen) Screen (12/03/2021 7:56 AM CDT) athologist Signature Prostate-Specif 0.56 <=4.5 ng/mL 12/03/2021 R[facility] ic Ag 2:14 PM CDT Comment: ----ADDITIONAL INFORMATION---- The testing method is an electrochemilum inescence assay manufactured by [employer] and performed on the Modular [...] M.D. LAB BLOOD ADD-ON Performing Organization Address City/[facility] Code Phon e Number [facility]- [address] [place], [place] [address] [place] [address] System in [place] [address] [place] [address] Prothrombin Time (PT) (12/03/2021 7:56 AM CDT) athologist Signature Prothrombin 11.1 9.4 - 12.5 12/03/2021 [facility] Time, P sec 9:21 AM CDT INR 1.0 0.9 - 1.1 12/03/2021 [facility] 9:21 AM CDT Comment: ----ADDITIONAL INFORMATION---- Standard intensity warfarin therapeutic range: 2.0 to 3.0 ?? High intensity warfarin therapeutic rang e: 2.5 to 3.5 Specimen Anatomical Collection Method Collection Time Receive d Time (Source) Location / / Volume Laterality Blood (Blood, 12/03/2021 7:56 AM 12/04/19 22 8:05 Venous) CDT AM CDT Otoniel Linares M.D. LAB BLOOD ADD-ON Performing Organization Address City/[facility]/ZIP Code Phon e Number [facility]- [id number] [place] [address] [place] [address] System in [place] [address] [address] 25-Hydroxyvitamin D2 and D3 (12/03/2021 7:56 AM CDT) athologist Signature 25-Hydroxy D2 <4.0 ng/mL 12/05/2021 [facility] 3:16 PM CDT 25-Hydroxy D3 42 ng/mL 12/05/2021 [facility] 3:16 PM CDT 25-Hydroxy D 42 ng/mL 12/05/2021 [facility] Total 3:16 PM CDT Comment: ----REFERENCE VALUE---- 25-HYDROXY D TOTAL (D2+D3) Optimum level s in the healthy population are 20-50, patients with bone disease may benefit from higher levels within this r itzel. ----ADDITIONAL INFORMATION---- This test was developed and its performa nce characteristics determined by [facility] in a manner consistent [...] Organization Address City/State/ZIP Code Phon e Number [facility] [address] [place], [place] [address] [place], [place] [address]. [place] [address] Laboratory Medicine and Pathology [address] [...] Volume Laterality Blood (Blood, 12/03/2021 7:56 AM 06/13/20 22 1:41 Venous) CDT PM CDT Otoniel Linares M.D. LAB BLOOD ADD-ON Performing Organization Address City/State/ZIP Code Phon e Number [facility]- [address] [facility] [place] [address] [place] [address] System in [place] [address] (ABNORMAL) S-TSH (Thyroid-Stimulating Hormone - [...] Organization Address City/State/ZIP Code Phon e Number [address] [address] [place] [address] System in [place] [address] [address] Hemoglobin A1c (12/03/2021 7:56 AM CDT) athologist Signature Hemoglobin A1c, 5.6 4.2 - 5.6 12/03/2021 CN[facility] B % 8:46 AM CDT Specimen Anatomical Collection Method Collection Time Receive d Time (Source) Location / / Volume Laterality Blood (Blood, 12/03/2021 7:56 AM 12/04/19 22 8:05 Venous) CDT AM CDT Otoniel Linares M.D. LAB BLOOD ADD-ON Performing Organization Address City/[facility]/ZIP Code Phon e Number [address] [place] [address] [place] [address] System in [place] [address] [address] (ABNORMAL) CBC with Differential, Blood (12/03/2021 7:55 AM CDT) Component Value Ref Test Analysis Performed At Patholo gist Range Method Time Signature Hemoglobin 9.8 (L) [...] M.D. LAB BLOOD ADD-ON Performing Organization Address City/State/[facility] Code Phon e Number [address] [address] [place] [address] System [address] (ABNORMAL) Phosphorus Inorganic (12/03/2021 7:55 AM CDT) P athologist Signature Phosphorus 4.9 (H) 2.5 - 4.5 12/03/2021 [facility] (Inorganic), P mg/dL 8:41 AM CDT Specimen Anatomical Collection Method Collection Time Receive d Time (Source) Location / / Volume Laterality Blood (Blood, 12/03/2021 7:55 AM 12/04/19 22 8:04 Venous) CDT AM CDT Otoniel Linares M.D. LAB BLOOD ADD-ON Performing Organization Address City/[facility]/ZIP [facility] Phon e Number [address] [address] [place] [address] System [place] [address] [address] Magnesium (12/03/2021 7:55 AM CDT) P athologist Signature Magnesium, P 2.3 1.7 - 2.3 12/03/2021 CN[facility] mg/dL 8:41 AM CDT Specimen Anatomical Collection Method Collection Time Receive d Time (Source) Location / / Volume Laterality Blood (Blood, 12/03/2021 7:55 AM 12/04/19 8:04 Venous) CDT AM CDT Otoniel Linares M.D. LAB BLOOD ADD-ON Performing Organization Address City/[facility]/ZIP Code Phon e Number [address] [address] [place] [address] System in [place] [address] [address] Uric Acid (12/03/2021 7:55 AM CDT) athologist Signature Uric Acid, P 5.4 3.7 - 8.0 12/03/2021 CN[facility] mg/dL 8:41 AM CDT Specimen Anatomical Collection Method Collection Time Receive d Time (Source) Location / / Volume Laterality Blood (Blood, 12/03/2021 7:55 AM 12/04/19 8:04 Venous) CDT AM CDT Otoniel Linares M.D. LAB BLOOD ADD-ON Performing Organization Address City/[facility] Code Phon e Number [address] [address] [place] [address] [address] Lipid Panel (12/03/2021 7:55 AM CDT) P athologist Signature Cholesterol, 140 mg/dL 12/03/2021 [facility] [...] Code Phon e Number [facility]- [address] [place] [address] [place] [address] System [address] (ABNORMAL) Comprehensive Metabolic Panel (12/03/2021 7:55 [...] eGFR-Black/Afri 17 (L) >=60 12/03/2021 CN[facility] can [place] mL/min/BSA 8:41 AM CDT Comment: ----ADDITIONAL INFORMATION---- Estimated GFR calculated using the 2009 CKD_EPI creatinine equation. eGFR Non-Black/ <15 (L) >=60 mL/min/BSA 12/03/2021 8:41 AM CDT [facility] [place] Comment: ----ADDITIONAL INFORMATION---- Estimated GFR calculated using [...] Code Phon e Number [facility]- [address] [place] [address] [place] [address] System [address] Bilirubin, Direct (12/03/2021 7:55 AM CDT) P athologist Signature Bilirubin, <0.2 0.0 - 0.3 12/03/2021 [facility] Direct, P mg/dL 8:41 AM CDT Specimen Anatomical Collection Method Collection Time Receive d Time (Source) Location / / Volume Laterality Blood (Blood, 12/03/2021 7:55 AM 12/04/19 8:04 Venous) CDT AM CDT Otoniel Linares M.D. LAB BLOOD ADD-ON Performing Organization Address City/State/ZIP Code Phon e Number [address] [address] [place] [address] System in [address] documented in this encounter Visit Diagnoses Diagnosis Transplant Liver (HCC) - Primary Medication Therapy Intermediate Not Anticoa gulant Screening Examination Skin Cancer Chronic Kidney Disease Stage 4 Glomerula r Filtration Rate 15-29 (HCC) Chronic Failure Renal End Stage Renal Di sease Dialysis Dependent (HCC) Other Secondary Hypertension Other Bipolar Disorder (HCC) Hyperlipidemia Chronic Obstructive Pulmonary Disease Wi thout Exacerbation (HCC) Anemia Screening Examination Prostate Cancer Transplant Liver (HCC) Medication Therapy Intermediate Not Anticoa gulant Screening Examination Skin Cancer Chronic Failure Renal End Stage Renal Di sease Dialysis Dependent (HCC) Other Secondary Hypertension Other Bipolar Disorder (HCC) Hyperlipidemia Chronic Obstructive Pulmonary Disease Wi thout Exacerbation (HCC) Anemia Screening Examination Prostate Cancer Transplant Liver (HCC) Medication Therapy Intermediate Not Anticoa gulant Screening Examination Skin Cancer Chronic Failure Renal End Stage Renal Di sease Dialysis Dependent (HCC) Other Secondary Hypertension Other Bipolar Disorder (HCC) Hyperlipidemia Chronic Obstructive Pulmonary Disease Wi thout Exacerbation (HCC) Anemia Screening Examination Prostate Cancer Transplant Liver (HCC) Medication Therapy Intermediate Not Anticoa gulant Screening Examination Skin Cancer Chronic Failure Renal End Stage Renal Di sease Dialysis Dependent (HCC) Other Secondary Hypertension Other Bipolar Disorder (HCC) Hyperlipidemia Chronic Obstructive Pulmonary Disease Wi thout Exacerbation (HCC) Anemia Screening Examination Prostate Cancer documented in this encounter Additional Health Concerns Infection Onset Date Last Indicated Resolved Time COVID19 Pending 07/22/2021 07/23/2021 07/23/2021 8:59 PM 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
--- OUTSIDE RECORDS SUMMARY | 2022-04-13 12:08 | XMS_ITS | Encounter Summary ---
:1955 Author Organization [facility] Address [address] [place] [address] Care Team Providers Name Role Phone Elsewhere, Pcp Primary Care Provider Unavailable Reason for Referral Outpatient (Routine) - Closed Specialty Diagnoses / Procedures Referred By Contact Refer red To Contact Diagnoses Failure Renal End Stage (HCC) Follow Up Surgery Exam Fistula Arteriovenous Acquired (HCC) Dario Shafer M.D., [facility] Procedures Hemodialysis Fistula-Graft Right Ph.D. 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 [address] [place] [address] Referral ID Status Reason Start Date Expiration Date Visits Requ ested Visits Authorized [id number] Closed 07/24/2021 07/24/2022 1 1 SPORT AIRCREWMAN Encounter Details Date Type Department Care Team Description 07/24/2021 Orders Only Division of Nephrology Dario Shafer F ollow Up Surgery Exam (Primary Dx); and Hypertension in MWilfred., Ph.D. Failure Renal End Stage (HCC); [place], [place] 200 [facility] Fistula Arteriovenous Acquired (HCC) [address] [place] [phone] [phone] Social History Tobacco Use Types Packs/Day Years [...] or relatives? How often do you attend buddhist or More than 4 times per year 12/15/2021 anabaptism services? 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 [address] [place] [phone] 04/25/2022 Office Visit Otorhinolaryngology Dex Matta APRN CDemetriusNDemetriusPDemetrius, M.S.N. [address] [place] [phone] 05/08/2022 Appointment Laboratory Medicine Angélica Granger P.A.-C. [address] [place] [phone] 05/08/2022 Clinical Admitting/Central Communication Scheduling 05/10/2022 Appointment Radiology Jeremie Rose M.D. [address] [place] [phone] 05/10/2022 Comprehensive Visit Orthopedic Surgery Warner Graves M.D. [address] [place] [phone] 05/22/2022 Appointment Laboratory Medicine Angélica Granger P.A.-C. [address] [place] [phone] 06/05/2022 Appointment Laboratory Medicine Angélica Granger P.A.-C. [address] [place] [phone] 06/19/2022 Appointment Laboratory Medicine Angélica Granger P.A.-C. [address] [place] [phone] 07/03/2022 Appointment Laboratory Medicine Angélica Granger P.A.-C. [address] [place] [phone] 07/17/2022 Appointment Laboratory Medicine Angélica Granger P.A.-C. [address] [place] [phone] 07/31/2022 Appointment Laboratory Medicine Angélica Granger P.A.-C. [address] [place] [phone] 08/14/2022 Appointment Laboratory Medicine Angélica Granger P.A.-C. [address] [place] [phone] 08/28/2022 Appointment Laboratory Medicine Angélica Granger P.A.-C. 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
--- OUTSIDE RECORDS SUMMARY | 2022-04-13 12:08 | XMS_ITS | Encounter Summary ---
:1955 Author Organization [facility] Address [address] [place] [address] Care Team Providers Name Role Phone Elsewhere, Pcp Primary Care Provider Unavailable Encounter Details Date Type Department Care Team Description 07/25/2021 Orders Only Division of Nephrology and Elissa Wilcox A PRN, Hypertension, Denominational C.N.P. [place], in [place], [address] [place] [address] [place] [phone] [place] [address] [phone] Social History Tobacco Use Types Packs/Day Years [...] or relatives? How often do you attend orthodox or More than 4 times per year 12/15/2021 religion services? 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 [address] [place] [phone] 04/25/2022 Office Visit Otorhinolaryngology Dex Matta APRN, C.N.P., M.S.N. [address] [place] [phone] 05/08/2022 Appointment Laboratory Medicine Angélica Granger P.A.-C. [address] [place] [phone] 05/08/2022 Clinical Admitting/Central Communication Scheduling 05/10/2022 Appointment Radiology Jeremie Rose M.D. [address] [place] [phone] 05/10/2022 Comprehensive Visit Orthopedic Surgery Warner Graves M.D. [address] [place] [phone] 05/22/2022 Appointment Laboratory Medicine Angélica Granger P.A.-C. [address] [place] [phone] 06/05/2022 Appointment Laboratory Medicine Angélica Granger P.A.-C. [address] [place] [phone] 06/19/2022 Appointment Laboratory Medicine Angélica Granger P.A.-C. [address] [place] [phone] 07/03/2022 Appointment Laboratory Medicine Angélica Granger P.A.-C. [address] [place] [phone] 07/17/2022 Appointment Laboratory Medicine Angélica Granger P.A.-C. [address] [place] [phone] 07/31/2022 Appointment Laboratory Medicine Angélica Granger P.A.-C. [address] [place] [phone] 08/14/2022 Appointment Laboratory Medicine Angélica Granger P.A.-C. [address] [place] [phone] 08/28/2022 Appointment Laboratory Medicine Angélica Granger P.A.-C. [address] [place] [phone] documented as of this encounter Visit Diagnoses Not on filedocumented in this encounter Additional Health Concerns Assessment Noted Time PHQ-9 Depression Total Score: 4 11/28/2020 10:17 AM CD T documented as of this encounter Care Teams Chief Payroll Clerk Relationship Specialty Start Date End Date Elsewhere, Pcp PCP - General Family Medicine 07/29/17 [facility] - Laboratory Medicine 04/12/[address] [address] documented as of this encounter
--- OUTSIDE RECORDS SUMMARY | 2022-04-13 12:09 | XMS_ITS | Encounter Summary ---
:[address] [facility] Address [address] [place] [address] Care Team Providers Name Role Phone Elsewhere, Pcp Primary Care Provider Unavailable Reason for Visit Reason Comments Treatment Outpatient (Routine) - Authorized Specialty Diagnoses / Procedures Referred By Contact Refer red To Contact Diagnoses Colitis Cytomegalovirus (HCC) Transplant Liver (HCC) Otoniel Linares M.D. [facility] Procedures Perform central line out man: Site care, Flush port(s) [address] [place] [address] Referral ID Status Reason Start Date Expiration Date Visits V isits Requested Authorized [id number] Authorized 06/26/2021 06/26/2022 8 8 Encounter Details Date Type Department Care Team Description 07/16/2021 Infusion Department of Infusion Otoniel Linares Cytomegalovirus (HCC) (Primary Dx); Therapy in Jimmie Tubbs M.D. 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 [address] [place] [phone] 05/08/2022 Appointment Laboratory Medicine Angélica Granger P.A.-CDemetrius [address] [place] [phone] 05/08/2022 Clinical Admitting/Central Communication Scheduling 05/10/2022 Appointment Radiology Jeremie Rose M.D. [address] [place] [phone] 05/10/2022 Comprehensive Visit Orthopedic Surgery Warner Graves M.D. [address] [place] [phone] 05/22/2022 Appointment Laboratory Medicine Angélica Granger P.A.-C. [address] [place] [phone] 06/05/2022 Appointment Laboratory Medicine Angélica Granger P.A.-C. [address] [place] [phone] 06/19/2022 Appointment Laboratory Medicine Angélica Granger P.A.-C. [address] [place] [phone] 07/03/2022 Appointment Laboratory Medicine Angélica Granger P.A.-C. [address] [place] [phone] 07/17/2022 Appointment Laboratory Medicine Angélica Granger P.A.-C. [address] [place] [phone] 07/31/2022 Appointment Laboratory Medicine Angélica Granger P.A.-C. [address] [place] [phone] 08/14/2022 Appointment Laboratory Medicine Angélica Granger P.A.-C. [address] [place] [phone] 08/28/2022 Appointment Laboratory Medicine Angélica Granger P.A.-C. 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 documented in this encounter Additional Health Concerns Assessment Noted Time PHQ-9 Depression Total Score: 4 11/28/2020 10:17 AM CD T documented as of this encounter Care Teams Museum Security Chief Relationship Specialty Start Date End Date Elsewhere, Pcp PCP - General Family Medicine 07/29/17 [facility] - Laboratory Medicine 04/12/[address] [address] documented as of this encounter
--- OUTSIDE RECORDS SUMMARY | 2022-04-13 12:09 | XMS_ITS | Encounter Summary ---
:1955 Author Organization [facility] Address [address] [place] [address] Care Team Providers Name Role Phone Elsewhere, Pcp Primary Care Provider Unavailable Reason for Visit Outpatient (Routine) - Authorized Specialty Diagnoses / Procedures Referred By Contact Refer red To Contact Diagnoses Colitis Cytomegalovirus (HCC) Transplant Liver (HCC) Otoniel Linares M.D. [facility] Procedures Perform central line installation supervisor: Site care, Flush port(s) [address] [place] [address] Referral ID Status Reason Start Date Expiration Date Visits V isits Requested Authorized [id number] Authorized 06/26/2021 06/26/2022 8 8 Encounter Details Date Type Department Care Team Description 07/09/2021 Infusion Department of Infusion Otoniel Linares Cytomegalovirus (HCC) (Primary Dx); Therapy in Jimmie Tubbs M.D. Transplant Liver (HCC); [place], [place] [address] [phone] [phone] Social History Tobacco Use Types Packs/Day Years [...] or relatives? How often do you attend hoahaoism or More than 4 times per year 12/15/2021 yarsani services? Do you belong to any clubs or No 12/15/2021 organizations such as hoahaoism groups, unions, fraHereOrThere or athletic groups, or school groups? 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 [address] [place] [phone] 04/25/2022 Office Visit Otorhinolaryngology Dex Matta APRN, C.N.P., M.S.N. [address] [place] [phone] 05/08/2022 Appointment Laboratory Medicine Angélica Granger P.A.-CDemetrius [address] [place] [phone] 05/08/2022 Clinical Admitting/Central Communication Scheduling 05/10/2022 Appointment Radiology Jeremie Rose M.D. [address] [place] [phone] 05/10/2022 Comprehensive Visit Orthopedic Surgery Warner Graves M.D. [address] [place] [phone] 05/22/2022 Appointment Laboratory Medicine Angélica Granger P.A.-C. [address] [place] [phone] 06/05/2022 Appointment Laboratory Medicine Angélica Granger P.A.-C. [address] [place] [phone] 06/19/2022 Appointment Laboratory Medicine Angélica Granger P.A.-C. [address] [place] [phone] 07/03/2022 Appointment Laboratory Medicine Angélica Granger P.A.-C. [address] [place] [phone] 07/17/2022 Appointment Laboratory Medicine Angélica Granger P.A.-C. [address] [place] [phone] 07/31/2022 Appointment Laboratory Medicine Angélica Granger P.A.-C. [address] [place] [phone] 08/14/2022 Appointment Laboratory Medicine Angélica Granger P.A.-C. [address] [place] [phone] 08/28/2022 Appointment Laboratory Medicine Angélica Granger P.A.-C. 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 documented in this encounter Additional Health Concerns Assessment Noted Time PHQ-9 Depression Total Score: 4 11/28/2020 10:17 AM CD T documented as of this encounter Care Teams Chargemaster Analyst Relationship Specialty Start Date End Date Elsewhere, Pcp PCP - General Family Medicine 07/29/17 [facility] - Laboratory Medicine 04/12/[address] [address] documented as of this encounter
--- OUTSIDE RECORDS SUMMARY | 2022-04-13 12:09 | XMS_ITS | Encounter Summary ---
:1955 Author Organization [facility] Address [address] [place] [address] Care Team Providers Name Role Phone Elsewhere, Pcp Primary Care Provider Unavailable Reason for Visit Reason Comments Med Refill Encounter Details Date Type Department Care Team Description 07/05/2021 Clinical Communication Department of [facility], Med Refill Nephrology in [place] M .D. 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 Med Refill Pertinent Information: Patient calls needing Nifedipine RX refill. Preferred Communication Method: [phone] (mobile) Patient pharmacy: [id number] [place], [place] - [facility] [address] [facility] [address] [place] [phone] [facility] [place], [place] - [address] [place] [address] [place] [address] Additional instructions: OUT WORKER documented in this encounter Plan of Treatment Upcoming Encounters Date Type Specialty Care Team Description 04/24/2022 Appointment Laboratory Medicine Angélica Granger PDemetriusASky [address] [place] [phone] 04/25/2022 Office Visit Otorhinolaryngology Dex Matta, RAMONA, C.N.P., M.S.N. [address] [place] [phone] 05/08/2022 Appointment Laboratory Medicine Angélica Granger P.A.-C. [address] [place] [phone] 05/08/2022 Clinical Admitting/Central Communication Scheduling 05/10/2022 Appointment Radiology Jeremie Rose M.D. [address] [place] [phone] 05/10/2022 Comprehensive Visit Orthopedic Surgery Warner Graves M.D. [address] [place] [phone] 05/22/2022 Appointment Laboratory Medicine Angélica Granger P.A.-C. [address] [place] [phone] 06/05/2022 Appointment Laboratory Medicine Angélica Granger P.A.-C. [address] [place] [phone] 06/19/2022 Appointment Laboratory Medicine Angélica Granger P.A.-C. [address] [place] [phone] 07/03/2022 Appointment Laboratory Medicine Angélica Granger P.A.-C. [address] [place] [phone] 07/17/2022 Appointment Laboratory Medicine Angélica Granger P.A.-C. [address] [place] [phone] 07/31/2022 Appointment Laboratory Medicine Angélica Granger P.A.-C. [address] [place] [phone] 08/14/2022 Appointment Laboratory Medicine Angélica Granger P.A.-C. [address] [place] [phone] 08/28/2022 Appointment Laboratory Medicine Angélica Granger P.A.-C. [address] [place] [phone] documented as of this encounter Visit Diagnoses Not on filedocumented in this encounter Additional Health Concerns Assessment Noted Time PHQ-9 Depression Total Score: 4 11/28/2020 10:17 AM CD T documented as of this encounter Care Teams Nursing Educator Relationship Specialty Start Date End Date Elsewhere, Pcp PCP - General Family Medicine 07/29/17 [facility] - Laboratory Medicine 04/12/[address] [address] documented as of this encounter
--- OUTSIDE RECORDS SUMMARY | 2022-04-13 12:09 | XMS_ITS | Encounter Summary ---
:1955 Author Organization [facility] Address [address] [place] [address] Care Team Providers Name Role Phone Elsewhere, Pcp Primary Care Provider Unavailable Encounter Details Date Type Department Care Team Description 07/16/2021 Hospital Encounter Department of Trung Plasencia [facility] Laboratory Medicine Edmundo Stern, ([facility]) in [address] [address] [place], [place] [phone] (Work) [phone] Social History Tobacco Use Types Packs/Day Years [...] or relatives? How often do you attend baptist or More than 4 times per year 12/15/2021 gnosticist services? 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 Transplant Liver (HCC) multivitamin tablet Take 1 tablet by 0 06/18/2013 10/12/2021 mouth daily. Maintenance mycophenolate TAKE 1 TABLET BY 180 tablet 3 11/06/202010/11 (CELLCEPT) 500 mg MOUTH TWICE DAILY tabletIndications: Transplant Liver (HCC) NIFEdipine XL TAKE 3 TABLETS(90 270 tablet 3 07/05/20212 11/2021 (PROCARDIA XL) 30 mg 24 MG) [...] MOUTH DAILY Transplant Liver (HCC), Medication Therapy Design Engineering Specialist Not Anticoagulant Spiriva Respimat 2.5 INHALE 2 PUFFS BY 4 g 0 01/09/20 21 07/26/2021 mcg/actuation inhaler MOUTH DAILY tacrolimus (PROGRAF) TAKE 2 CAPSULES BY 360 capsule 3 202107/18/2021 0.5 mg MOUTH TWICE DAILY capsuleIndications: Transplant Liver (HCC), Medication Therapy Design Engineering Specialist Not Anticoagulant UNABLE TO FIND by nasal 0 10/12/2021 (alternating) route 2 (two) times a day. Azelastine 1mg to Sinus Rinse twice daily. [facility] documented as 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 [address] [place] [address] 04/25/2022 Office Visit Otorhinolaryngology Dex Matta APRN CeDmetriusNDemetriusPDemetrius, M.S.N. [address] [place] [phone] 05/08/2022 Appointment Laboratory Medicine Angélica Granger P.A.-C. [address] [place] [phone] 05/08/2022 Clinical Admitting/Central Communication Scheduling 05/10/2022 Appointment Radiology Jeremie Rose M.D. [address] [place] [phone] 05/10/2022 Comprehensive Visit Orthopedic Surgery Warner Graves M.D. [address] [place] [phone] 05/22/2022 Appointment Laboratory Medicine Angélica Granger P.A.-C. [address] [place] [phone] 06/05/2022 Appointment Laboratory Medicine Angélica Granger P.A.-C. [address] [place] [phone] 06/19/2022 Appointment Laboratory Medicine Angélica Granger P.A.-C. [address] [place] [phone] 07/03/2022 Appointment Laboratory Medicine Angélica Granger P.A.-C. [address] [place] [phone] 07/17/2022 Appointment Laboratory Medicine Angélica Granger P.A.-C. [address] [place] [address] [phone] 07/31/2022 Appointment Laboratory Medicine Angélica Granger P.A.-C. [address] [place] [phone] 08/14/2022 Appointment Laboratory Medicine Angélica Granger P.A.-C. [address] [place] [phone] 08/28/2022 Appointment Laboratory Medicine Angélica Granger P.A.-C. [address] [place] [phone] documented as of this encounter Procedures Procedure Name Priority Date/Time Associated Diagnosis Comme nts BACTERIA / RIMMA Routine 07/16/2021 8:22 Colitis Cytomegalov irus Results for this CULTURE, BLOOD AM AERODYNAMICS ENGINEER ([facility]) procedure are in the results section. BACTERIA / RIMMA Routine 07/16/2021 8:17 Colitis Cytomegalov irus Results for this CULTURE, BLOOD AM AERODYNAMICS ENGINEER (HCC) procedure are in the results section. MORPHOLOGY Routine 07/16/2021 8:16 Results for this EVALUATION AM AERODYNAMICS ENGINEER procedure are i n the results section. CMV DNA Routine 07/16/2021 8:16 Colitis Cytomegalovirus R esults for this DETECT/QUANT, P AM AERODYNAMICS ENGINEER ([facility]) procedure ar e in the results section. CBC WITH Routine 07/16/2021 8:16 Colitis Cytomegalovirus R esults for this DIFFERENTIAL, B AM AERODYNAMICS ENGINEER ([facility]) procedure ar e in the results section. documented in this encounter Results Bacteria / Rimma Culture, Blood #2 (07/16/2021 8:22 AM AERODYNAMICS ENGINEER) [facility] gist Method Time Signature Bacteria/Negar No growth 07/21/2021 [facility] da Culture, after 5 9:02 AM AERODYNAMICS ENGINEER Blood day/s of incubation. Specimen (Source) Anatomical Collection Method Collection Time Re ceived Time Location / / Volume Laterality Blood (Blood, 07/16/2021 8:22 07/16/2021 8:27 Peripheral Draw) AM AERODYNAMICS ENGINEER AM AERODYNAMICS ENGINEER Comment: Specimen Source Site: Blood Trung Plasencia P.A.-C. M.S. LAB MICROBIOLOGY - GENERAL ORDERABLES Performing Organization Address City/[facility]/ZIP [facility] [place] Phon [place] Number [address] [address] [place] [address] System [address] Bacteria / Rimma Culture, Blood #1 (07/16/2021 8:17 AM AERODYNAMICS ENGINEER) [facility] Signature Bacteria/Negar No growth 07/21/2021 [facility] da Culture, after 5 9:02 AM AERODYNAMICS ENGINEER Blood day/s of incubation. Specimen (Source) Anatomical Collection Method Collection Time Re ceived Time Location / / Volume Laterality Blood (Blood, 07/16/2021 8:17 07/16/2021 8:26 Peripheral Draw) AM AERODYNAMICS ENGINEER AM AERODYNAMICS ENGINEER Comment: Specimen Source Site: Blood Trung Plasencia P.A.-C., M.S. LAB MICROBIOLOGY - GENERAL ORDERABLES Performing Organization Address [facility] Phon e Number [address] [address] [place] [address] (ABNORMAL) Morphology Evaluation (07/16/2021 8:16 AM AERODYNAMICS ENGINEER) [facility] Signature RBC Morphology See Specific 07/16/2021 [facility] Findings 11:17 AM AERODYNAMICS ENGINEER PLT Morphology Normal 07/16/2021 [facility] 11:17 AM AERODYNAMICS ENGINEER Elliptocytes Slight (A) Not Seen 07/16/2021 [facility] 11:17 AM AERODYNAMICS ENGINEER Poikilocytosis Slight (A) Not Seen 07/16/2021 [facility] 11:17 AM AERODYNAMICS ENGINEER Schistocytes Slight (A) None Seen 07/16/2021 [facility] 11:17 AM AERODYNAMICS ENGINEER Specimen Anatomical Collection Method Collection Time Receive d Time (Source) Location / / Volume Laterality Blood 07/16/2021 8:16 AM 8:26 AERODYNAMICS ENGINEER AM AERODYNAMICS ENGINEER Trung Plasencia P.A.-C., M.S. LAB BLOOD ADD-ON Performing Organization Address City/State/ZIP Code Phon e Number [facility]- [address] [place] [address] [place] [address] (ABNORMAL) CMV DNA Detect / Quant, Plasma (07/16/2021 8:16 AM AERODYNAMICS ENGINEER) [facility] Method Time Signature CMV DNA <35 (A) Undetected 07/17/2021 [facility] Detect/Quant, IU/mL 4:19 PM AERODYNAMICS ENGINEER P Comment: Result in log IU/mL is <1.54. CMV DNA is detected, but level present i s <35 IU/mL (<1.54 log IU/mL). This assay cannot accurately quantify CMV DNA below this level. ----ADDITIONAL INFORMATION---- The quantification range of this assay i s 35 to 10,000,000 IU/mL (1.54 log to 7.00 log IU/mL). Testing was performed u sing the tika CMV test ([employer] with the tika 6800 System. Specimen Anatomical Collection Method Collection Time Receive d Time (Source) Location / / Volume Laterality Blood (Blood, 07/16/2021 8:16 AM 07/17/19 7:42 Venous) AERODYNAMICS ENGINEER AM AERODYNAMICS ENGINEER Trung Plasencia P.A.-C. M.S. LAB MICROBIOLOGY - BLOOD O RDERABLES Performing Organization Address City/State/ZIP Code Phon e Number [facility] [address] [place] [address] SU[facility] CENTER [facility] [place] [address] Laboratory Medicine and Pathology [address] [place] [address] Dr. MURILLO (ABNORMAL) CBC with Differential, Blood (07/16/2021 8:16 AM AERODYNAMICS ENGINEER) [facility] Method Time Signature Hemoglobin 10.4 (L) 13.2 - 07/16/2021 [facility] 16.6 g/dL 11:16 AM AERODYNAMICS ENGINEER Hematocrit 32.0 (L) 38.3 - 07/16/2021 [facility] 48.6 % 11:16 AM AERODYNAMICS ENGINEER Erythrocytes 3.34 (L) 4.35 - 07/16/2021 [facility] 5.65 11:16 AM AERODYNAMICS ENGINEER x10(12)/L MCV 95.8 78.2 - 07/16/2021 [facility] 97.9 fL 11:16 AM AERODYNAMICS ENGINEER RBC Distrib Width 13.3 11.8 - 07/16/2021 [facility] 14.5 % 11:16 AM AERODYNAMICS ENGINEER Platelet Count 266 135 - 317 07/16/2021 [facility] x10(9)/L 11:16 AM AERODYNAMICS ENGINEER Leukocytes 5.6 3.4 - 9.6 07/16/2021 [facility] x10(9)/L 11:16 AM AERODYNAMICS ENGINEER Neutrophils 4.10 1.56 - 07/16/2021 [facility] 6.45 11:16 AM AERODYNAMICS ENGINEER x10(9)/L Lymphocytes 0.87 (L) 0.95 - 07/16/2021 CN[facility] 3.07 11:16 AM AERODYNAMICS ENGINEER x10(9)/L Monocytes 0.53 0.26 - 07/16/2021 CNFL 0.81 11:16 AM AERODYNAMICS ENGINEER x10(9)/L Eosinophils 0.13 0.03 - 07/16/2021 CNFL 0.48 11:16 AM AERODYNAMICS ENGINEER x10(9)/L Basophils 0.01 0.01 - 07/16/2021 CNFL 0.08 11:16 AM AERODYNAMICS ENGINEER x10(9)/L Specimen Anatomical Collection Method Collection Time Receive d Time (Source) Location / / Volume Laterality Blood (Blood, 07/16/2021 8:16 AM 07/16/19 22 8:26 Venous) AERODYNAMICS ENGINEER AM AERODYNAMICS ENGINEER Trung Plasencia P.A.-C., M.S. LAB BLOOD ADD-ON Performing Organization Address City/State/[facility] Code Phon e Number [facility]- [address] [place], [place] [address] [place] [address] [place] [address] [address] documented in this encounter Visit Diagnoses Diagnosis Colitis Cytomegalovirus (HCC) documented in this encounter Additional Health Concerns Assessment Noted Time PHQ-9 Depression Total Score: 4 11/28/2020 10:17 AM CD T documented as of this encounter Care Teams Commercial Loan Processor Relationship Specialty Start Date End Date Elsewhere, Pcp PCP - General Family Medicine 07/29/17 [facility] - Laboratory Medicine 04/12/20 [place] [address] documented as of this encounter
--- OUTSIDE RECORDS SUMMARY | 2022-04-13 12:09 | XMS_ITS | Encounter Summary ---
:1955 Author Organization 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 [address] [place] [phone] 04/25/2022 Office Visit Otorhinolaryngology Dex Matta APRN, C.N.P., M.S.N. [address] [place] [phone] 05/08/2022 Appointment Laboratory Medicine Angélica Granger P.A.-CDemetrius [address] [place] [phone] 05/08/2022 Clinical Admitting/Central Communication Scheduling 05/10/2022 Appointment Radiology Jeremie Rose M.D. [address] [place] [phone] 05/10/2022 Comprehensive Visit Orthopedic Surgery Warner Graves M.D. [address] [place] [phone] 05/22/2022 Appointment Laboratory Medicine Angélica Granger P.A.-CDemetrius [address] [place] [phone] 06/05/2022 Appointment Laboratory Medicine Angélica Garnger P.A.-C. [address] [place] [phone] 06/19/2022 Appointment Laboratory Medicine Angélica Granger P.A.-C. [address] [place] [phone] 07/03/2022 Appointment Laboratory Medicine Angélica Granger P.A.-C. [address] [place] [phone] 07/17/2022 Appointment Laboratory Medicine Angélica Granger P.A.-C. [address] [place] [phone] 07/31/2022 Appointment Laboratory Medicine Angélica Granger P.A.-C. [address] [place] [phone] 08/14/2022 Appointment Laboratory Angélica Royal P.A.-C. [address] [place] [phone] 08/28/2022 Appointment Laboratory Medicine Angélica Granger P.A.-C. [address] [place] [phone] documented as of this encounter Visit Diagnoses Diagnosis Rhinosinusitis Chronic - Primary documented in this encounter Additional Health Concerns Assessment Noted Time PHQ-9 Depression Total Score: 4 11/28/2020 10:17 AM CD T documented as of this encounter Care Teams Tool And Die Engineer Relationship Specialty Start Date End Date Elsewhere, Pcp PCP - General Family Medicine 07/29/17 [facility] - Laboratory Medicine 04/12/20 [place] [address] documented as of this encounter
--- OUTSIDE RECORDS SUMMARY | 2022-04-13 12:09 | XMS_ITS | Encounter Summary ---
:1955 Author Organization [facility] Address [address] [place] [address] Care Team Providers Name Role Phone Elsewhere, Pcp Primary Care Provider Unavailable Encounter Details Date Type Department Care Team Description 07/18/2021 Orders Only Yolie Gamez Trans plant Liver (HCC) (Primary Dx); [facility]. 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 [address] [place] [phone] 04/25/2022 Office Visit Otorhinolaryngology Dex Matta APRN, C.N.P., M.S.N. [address] [place] [phone] 05/08/2022 Appointment Laboratory Medicine Angélica Granger, P.A.-C. [address] [place] [phone] 05/08/2022 Clinical Admitting/Central Communication Scheduling 05/10/2022 Appointment Radiology Jeremie Rose M.D. [address] [place] [phone] 05/10/2022 Comprehensive Visit Orthopedic Surgery Warner Graves M.D. [address] [place] [phone] 05/22/2022 Appointment Laboratory Medicine Angélica Granger P.A.-C. [address] [place] [phone] 06/05/2022 Appointment Laboratory Medicine Angélica Granger P.A.-C. [address] [place] [phone] 06/19/2022 Appointment Laboratory Medicine Angélica Granger P.A.-C. [address] [place] [phone] 07/03/2022 Appointment Laboratory Medicine Angélica Granger P.A.-C. [address] [place] [phone] 07/17/2022 Appointment Laboratory Medicine Angélica Granger P.A.-C. [address] [place] [phone] 07/31/2022 Appointment Laboratory Medicine Angélica Granger P.A.-C. [address] [place] [phone] 08/14/2022 Appointment Laboratory Medicine Angélica Granger P.A.-C. [address] [place] [address] [phone] 08/28/2022 Appointment Laboratory Medicine Angélica Granger P.A.-C. 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
--- OUTSIDE RECORDS SUMMARY | 2022-04-13 12:09 | XMS_ITS | Encounter Summary ---
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 [address] [place] [phone] 04/25/2022 Office Visit Otorhinolaryngology Dex Matta APRN, C.N.P., M.S.N. [address] [place] [phone] 05/08/2022 Appointment Laboratory Medicine Angélica Granger P.A.-C. [address] [place] [phone] 05/08/2022 Clinical Admitting/Central Communication Scheduling 05/10/2022 Appointment Radiology Jeremie Rose M.D. [address] [place] [phone] 05/10/2022 Comprehensive Visit Orthopedic Surgery Warner Graves M.D. [address] [place] [phone] 05/22/2022 Appointment Laboratory Medicine Angélica Granger P.A.-C. [address] [place] [phone] 06/05/2022 Appointment Laboratory Medicine Angélica Granger P.A.-C. [address] [place] [phone] 06/19/2022 Appointment Laboratory Medicine Angélica Granger P.A.-C. [address] [place] [phone] 07/03/2022 Appointment Laboratory Medicine Angélica Granger P.A.-C. [address] [place] [phone] 07/17/2022 Appointment Laboratory Medicine Angélica Granger P.A.-C. [address] [place] [phone] 07/31/2022 Appointment Laboratory Medicine Angélica Granger P.A.-C. [address] [place] [phone] 08/14/2022 Appointment Laboratory Medicine Angélica Granger P.A.-C. [address] [place] [phone] 08/28/2022 Appointment Laboratory Medicine Angélica Granger P.A.-C. [address] [place] [phone] documented as of this encounter Procedures Procedure Name Priority Date/Time Associated Comments Diagnosis OTORHINOLARYNGOLOGY IMAGE Routine 07/03/2021 2:53 Results for this EXAM PM FITNESS TRAINER procedure are i n the results section. documented in this encounter Results NOSE-Otorhinolaryngology Image Exam (07/03/2021 2:53 PM FITNESS TRAINER) Specimen (Source) Anatomical Collection Method Collection Time Re ceived Time Location / / Volume Laterality 07/03/2021 3:02 PM FITNESS TRAINER Narrative IIMS - 07/03/2021 2:53 PM FITNESS TRAINER This order has been created and auto-finalized [...] documented as of this encounter Care Teams Nurse Receptionist Relationship Specialty Start Date End Date Elsewhere, Pcp PCP - General Family Medicine 07/29/17 [facility] - Laboratory Medicine 04/12/20 [place] [address] documented as of this encounter
--- OUTSIDE RECORDS SUMMARY | 2022-04-13 12:09 | XMS_ITS | Encounter Summary ---
:1955 Author Organization [facility] Address [address] [place] [address] Care Team Providers Name Role Phone Elsewhere, Pcp Primary Care Provider Unavailable Reason for Visit Reason Comments Med Refill Encounter Details Date Type Department Care Team Description 07/15/2021 Refill [facility] for Yusuf Gutierrez, Med Refill Transplantation and Clinical M.D ., M.P.H. 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 [address] [place] [phone] 04/25/2022 Office Visit Otorhinolaryngology Dex Matta, RAMONA, C.N.P., M.S.N. [address] [place] [phone] 05/08/2022 Appointment Laboratory Medicine Angélica Granger, P.A.-C. [address] [place] [phone] 05/08/2022 Clinical Admitting/Central Communication Scheduling 05/10/2022 Appointment Radiology Jeremie Rose M.D. [address] [place] [phone] 05/10/2022 Comprehensive Visit Orthopedic Surgery Warner Graves M.D. [address] [place] [phone] 05/22/2022 Appointment Laboratory Medicine Angélica Granger P.A.-C. [address] [place] [phone] 06/05/2022 Appointment Laboratory Medicine Angélica Granger P.A.-C. [address] [place] [phone] 06/19/2022 Appointment Laboratory Medicine Angélica Granger P.A.-C. [address] [place] [phone] 07/03/2022 Appointment Laboratory Medicine Angélica Granger P.A.-C. [address] [place] [phone] 07/17/2022 Appointment Laboratory Angélica Royal P.A.-C. [address] [place] [phone] 07/31/2022 Appointment Laboratory Angélica Royal P.A.-C. [address] [place] [phone] 08/14/2022 Appointment Laboratory Angélica Royal P.A.-C. [address] [place] [phone] 08/28/2022 Appointment Laboratory Angélica Royal P.A.-C. [address] [place] [phone] documented as of this encounter Visit Diagnoses Diagnosis Transplant Liver (HCC) Medication Therapy University Counselor Not Anticoa gulant documented in this encounter Additional Health Concerns Assessment Noted Time PHQ-9 Depression Total Score: 4 11/28/2020 10:17 AM CD T documented as of this encounter Care Teams Data Entry Manager Relationship Specialty Start Date End Date Elsewhere, Pcp PCP - General Family Medicine 07/29/17 [facility] - Laboratory Medicine 04/12/20 [place] [address] documented as of this encounter
--- OUTSIDE RECORDS SUMMARY | 2022-04-13 12:09 | XMS_ITS | Encounter Summary ---
:1955 Author Organization [facility] Address [address] [place] [address] Care Team Providers Name Role Phone Elsewhere, Pcp Primary Care Provider Unavailable Encounter Details Date Type Department Care Team Description 07/03/2021 Clinical Department of [facility] O[facility]ol[facility]ology in [place], [place] [address] [place] [address] [address] [place] [id number] [phone] Social History Tobacco Use Types Packs/Day Years [...] at Date Recorded Male 05/16/2020 4:27 PM [employer] documented as of this encounter Miscellaneous Notes Telephone Encounter - Damaso Yañez M.D. - 07/03/2021 4:03 PM CST Orders have been placed. Thanks! -Damaso [employer] Telephone Encounter - Miryam Bailey - 07/03/2021 3:32 PM CST [facility]NA has denied triage for this patient he needs to be cleared for surgery with transplant. Please place new order. Thank you. (surgery is scheduled for 08/21/[address] Pena) [employer] documented in this encounter Plan of Treatment Upcoming Encounters Date Type Specialty Care Team Description 04/24/2022 Appointment Laboratory Medicine Angélica Granger P.A.-C. [address] [place] [phone] 04/25/2022 Office Visit Otorhinolaryngology Dex Matta APRN, C.N.P., M.S.N. [address] [place] [phone] 05/08/2022 Appointment Laboratory Medicine Angélica Granger P.A.-C. [address] [place] [phone] 05/08/2022 Clinical Admitting/Central Communication Scheduling 05/10/2022 Appointment Radiology Jeremie Rose M.D. [address] [place] [phone] 05/10/2022 Comprehensive Visit Orthopedic Surgery Warner Graves M.D. [address] [place] [phone] 05/22/2022 Appointment Laboratory Medicine Angélica Granger P.A.-C. [address] [place] [phone] 06/05/2022 Appointment Laboratory Medicine Angélica Granger P.A.-C. [address] [place] [phone] 06/19/2022 Appointment Laboratory Medicine Angélica Granger P.A.-C. [address] [place] [phone] 07/03/2022 Appointment Laboratory Medicine Angélica Granger P.A.-C. [address] [place] [phone] 07/17/2022 Appointment Laboratory Medicine Angélica Granger P.A.-C. [address] [place] [phone] 07/31/2022 Appointment Laboratory Medicine Angélica Granger P.A.-C. [address] [place] [phone] 08/14/2022 Appointment Laboratory Medicine Angélica Granger P.A.-C. [address] [place] [phone] 08/28/2022 Appointment Laboratory Medicine Angélica Granger P.A.-C. [address] [place] [phone] documented as of this encounter Visit Diagnoses Not on filedocumented in this encounter Additional Health Concerns Assessment Noted Time PHQ-9 Depression Total Score: 4 11/28/2020 10:17 AM CD T documented as of this encounter Care Teams Water Plumber Relationship Specialty Start Date End Date Elsewhere, Pcp PCP - General Family Medicine 07/29/17 [facility] - Laboratory Medicine 04/12/[address] [phone] documented as of this encounter
--- OUTSIDE RECORDS SUMMARY | 2022-04-13 12:09 | XMS_ITS | Encounter Summary ---
:[address] [facility] Address [address] [place] [address] Care Team Providers Name Role Phone Elsewhere, Pcp Primary Care Provider Unavailable Reason for Visit Transplant (Routine) - Closed Specialty Diagnoses / Procedures Referred By Contact Refer red To Contact Transplant Surgery / Diagnoses Transplant Liver (HCC) Medication Therapy Roll Weigher Not Anticoagulant Colitis Cytomegalovirus (HCC) [facility] [address] [place] [phone] Referral ID Status Reason Start Date Expiration Date Visits Requ ested Visits Authorized [id number] Closed 06/14/2021 06/14/2022 1 1 Encounter Details Date Type Department Care Team Description 07/12/2021 Office Visit Trung Swenson Cytomegalovirus (HCC) (Primary Dx); Center for J, P.A.-C., Transplant Live r ([facility]); Transplantation and M.S. 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 - 07/12/2021 11:00 AM CST DEMOGRAPHIC INFORMATION Patient Name: Bruce Singh Clinic Number: [id number] Age: 65 y.o. Birthdate: 1955 Sex: male Service Date/Time: 07/12/21 8:56 AM HIDE TANNER TRANSPLANT INFECTIOUS DISEASES SERVICE - Progress Note SUBJECTIVE REFERRAL SOURCE Trnug Plasencia P.A.-C., M.S. 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 HISTORY OF PRESENT ILLNESS Mr. Singh is a 65 year old gentleman from [place], [place] whom I know from prior clinic [...] on dialysis on June 01, 2021. He was diagnosed with COVID-19infection in Oct, 2020. Mr. Singh was hospitalized May 24 through May 26, 2021 for evaluation of renal failure and anemia. He had been refractory to Aranesp. He had occasional bright red blood per rectum. Hemoccult test done in April, was positive. A colonoscopy was ordered. Stool for C. Difficile toxin was positive and he was started on oral vancomycin four times daily for 10 days. Mr. Singh has a history of Clostridioides infection. Colonoscopy was performed on June 06, 2021 and showed at least 3 ulcers in the terminal ileum. No bleeding was present. Patchy moderate inflammation with erythema, edema and mucus was found in the proximal and mid transverse colon, ascending colon and cecum. 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 Small bowel showed active ileitis with focal erosion but CMV immunostaining was negative. No blood QN CMV PCR was obtained. Mr. Singh also has a long-standing history of chronic cough and post nasal drip. He has had episodes of recurrent aspiration and been hospitalized for treatment of pneumonia in the past. He had a CT chest performed today. Previous CT chest imaging done as recent as October 12, 2020 showed bilateral lower lobe clustered nodularities in the presence of a small sliding esophageal hiatal hernia, findingswere felt to represent recurrent aspiration. He was seen by ENT (Dr. Pena) on January 08, 2021 and it was recommended that he add Atrovent to his regimen for decreasing secretions. It was also discussed continued use of budesonide nasal rinses with Xylitol along with twice daily nasal saline rinses. Flonase was also recommended. Sinus surgery was also discussed if his symptoms persisted. He is also followed by Pulmonary Medicine and has completed swallow study, Esophageal ph monitoring and manometry all of which were normal. He has also had bronchoscopy and several sputum cultures for persistent tree-in-bud opacities, lower lobe nodularity and fleeting infiltrates on CT chest imaging.He has been unresponsive to inhalers, bronchial hygiene regimen, antimicrobials and steroids. CT chest imaging is suggestive of aspiration which likely occurs mostly at night. CT chest May, showed waxing and waning bilateral infectious/inflammatory bronchiolitiswith overall progression over time. He has chronic rhinosinusitis with post nasal drip and I suspecthe is aspirating at night. Sputum has grown Serratia Marcescens on multiple occasions with the most recent being May 23, 2021. He has not been treated for this he tells me. He may benefit from sinus surgery and he will touch base with Dr. Pena in ENT to schedule a follow-up visit. He is also going to be seeing an outside Animal Tech in the [facility] right after the first of the year. Mr. Singh was started on IV ganciclovir 1.25 mg/kg (90 mg) three times weekly. On dialysis days give after dialysis. A Qn CMV PCR from June 12, 2021 was positive at 980 IU/mL. He was to receive IV ganciclovir for one month after which he would undergo repeat colonoscopy with biopsies to assess the status of his CMV colitis. He was also given Bactrim SS one tablet once daily for 14 days after dialysis on dialysis days for treatment of Serratia Marcescens bronchitis/bronchiolitis. Oral vancomycin 125 mg twice daily for C. Difficile prophylaxis x 21 days was also provided to Mr. Singh given his history of Clostridioides difficile infection. Arrangements were made for Mr. Singh to receive IVganciclovir at home through [facility] beginning June 15, 2021. A tunneled PICC was placed on June 14, 2021 and he received his first dose of IV ganciclovir on that day. Mr. Singh was seen by ENT (Dr. Pena) on July 03, 2021 for evaluation of chronic rhinosinusitis. He remained quite symptomatic in regard to chronic postnasal drainage, chronic thick purulence drainage and cough. He failed multiple courses of systemic and topical medical therapies. Dr. Pena has re commended bilateral comprehensive endoscopic sinus surgery and bilateral inferior turbinate reduction as well as possible septoplasty. This is scheduled for August 21, 2021. Mr. Singh underwent a repeat colonoscopy on July 10, 2021. Patchy areas of mild inflammation with erythema, granularity and shallow small aphthous ulcerations were identified in the entire colon. Biopsies were obtained. Pathology report is pending. Mr. Singh also told me today that with his last two dialysis sessions he has developed chills towards the end of dialysis and also fever 100.00 after dialysis. He said he had some labs drawn at [facility] dialysis after talking with Dr. [place] his rounder hand. He said some labs were obtained but I donot see any record of any labs on July 06. Mr. Singh kindly called [facility] dialysis to find out what was actually done and what the results were but nobody answered the phone. If he has another fever or chilling episode while at dialysis I have asked him to request blood cultures drawn from his dialysis line. I have spoken to Dr. [place] from Nephrology as well so he is brought up to date. Mr. Singh says that his symptoms of post nasal drip, cough and congestion improved dramatically when he was on higher doses of prednisone given to him by Dr. Simon. He is back to his baseline 5 mg prednisone and with that his symptoms have returned. I have placed a page to Dr. Simon to discuss. I wonder if Budesonide nebulization would be of some benefit to him. This medication (Pulmicort) is on his medication list but he is not using it at present. He says he is using budesonide sinus rinses. He has no nausea, vomiting or diarrhea. ALLERGIES/CONTRAINDICATIONS Allergies Allergen Reactions ??? Citalopram Other [...] other diagnostic studies which are available in [facility] and [facility] respectively. Lab Results Component Value Date HGB 10.1 (L) 07/10/2021 WBC 4.7 07/10/2021 LYMPHSABS 0.45 (L) 07/10/2021 NEUTROPHILS 3.61 07/10/2021 EOSABS 0.04 07/10/2021 PLT 209 07/10/2021 NA 137 07/10/2021 KSERUM 4.1 07/10/2021 CL 98 07/10/2021 BICARB 24 07/10/2021 CREATININE 2.75 (H) 07/10/2021 EGFRNONBLKAA 23 (L) 07/10/2021 ALT 34 07/10/2021 AST 29 07/10/2021 ALKPHOS 151 (H) 07/10/2021 BILITOT 0.4 07/10/2021 INR 1.1 05/23/2021 CRP 5.3 11/13/2020 SEDRATE 40 (H) 11/12/2020 QTCINT 414 05/24/2021 MICROBIOLOGY July 10, 2021 Qn CMV PCR: <35 IU/mL June 12, 2021 Qn CMV PCR: 980 IU/mL. May 24, 2021 stool GI pathogen panel by PCR: Positive Clostridium difficile toxin and EPEC. DIAGNOSTIC IMAGING July 03, 2021 CT sinuses: Progressive paranasal sinus inflammatory changes particularly within the right maxillary antrum in ethmoid air cells bilaterally with near complete opacification since October 12, 2020. June 12, 2021 CT chest: Some areas of waxing and waning bilateral infectious/inflammatory bronchiolitis. Overall there has been progression of these findings. PATHOLOGY July 10, 2021 Colon biopsies: pending this visit. June 06, 2021: Colon biopsy: CMV colitis identified. Moderate active colitis with numerous CMV positive cells on immunostain. Small bowel showed active ileitis with focal erosion but CMV immunostaining was negative. DISCUSSION Mr. Singh has two issues to address. First is the finding of CMV colitis on colon biopsies obtained on colonoscopy done June 06, 2021. For this he was started IV ganciclovir induction, 1.25 mg/kg(90 mg) three times weekly after dialysis on dialysis days beginning June 14, 2021. His Qn CMV PCR at that time was 980 IU/mL. He underwent a repeat colonoscopy on July 10, 2021 and this showed patchy areas of mild inflammation with erythema, granularity and shallow small aphthous ulcerations in the entire colon. Biopsies were obtained. Pathology report is pending. Repeat Qn CMV PCR done on July 10, 2021 <35 IU/mL. A second issue is the long-standing problem of chronic rhinosinusitis with post nasal drip, chronic bronchiolitis,cough and aspiration. Sputum has grown Serratia Marcescens on multiple occasions. The organism is MDR. It is susceptible to quinolones but he has a history of tendonitis so this precludes t heir use. It is susceptible to TMP/SMZ and he was prescribed Bactrim SS once daily to take after dialysis on dialysis days for 2 weeks. He was also given oral vancomycin prophylaxis 125 mg twice daily to take for 21 days, given his history of recurrent Clostridioides infection. He was seen by Dr. Pena in ENT on July 03, 2021 and he has recommended sinus surgery given his CT sinus findings and lack of improvement on multiple courses of systemic and topical medical therapies. This is planned for August 21, 2021. I am somewhat concerned that he may have an infected dialysis catheter given his story of chilling and low-grade fever towards the end of dialysis or shortly after dialysis. He had outside blood cultures drawn last week but these are reportedly negative. I have ordered some additional blood cultures for July 16, 2021. If he has another episode of chills and/or fever at dialysis they should drawn additional blood cultures at that time. We will cancel the removal of his tunneled PICC on the left side since we will be continuing IV ganciclovir for now. ASSESSMENT / PLAN #1 CMV colitis, biopsy confirmed with CMV viremia Qn CMV PCR from July 10 is down to <35 IU/mL, however, repeat colonoscopy still shows shallow aphthous-like ulcerations with mild inflammation with erythema and granularity in the entire colon. Will continue with IV ganciclovir for now. Awaiting colon pathology. #2 Anemia with positive hemoccult refractory to ARANESP Hemoglobin remains low but has improved. Most recent Hgb from July 10, 2021 was 10.1, up from 8.1on June 12, 2021. #3 Recurrent Clostridioides difficile infection, last episode, May 24, 2021 He does not complain of any diarrhea. He completed a 21 day course of twice daily oral vancomycin recently after being placed on Bactrim for respiratory tract infection. #4 Chronic kidney disease, stage 5, recently started iHD via tunneled dialysis catheter placed May 31, 2021 Reports of chilling episodes and low-grade fever either towards the end of dialysis or shortly aftercompleting dialysis makes me wonder about the possibility of his dialysis catheter being infected. Will re-check blood cultures. #5 S/P Liver transplantation, June 13, 2013 #6 Chronic immunosuppression with CellCept, prednisone and tacrolimus #7 Initial liver transplant, May 25, 1999 - complicated by late onset HAT/ischemic cholangiopathy #8 Chronic rhinosinusitis with chronic cough and post nasal drip with recurrent aspiration unresponsive to multiple interventions He was seen by Dr. Pena in ENT on July 03, 2021 and is tentatively scheduled to undergo sinus surgery on August 21, 2021. 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 #[address] chest with lower lobe nodularities CT chest showed bilateral infectious/inflammatory bronchiolitis with waxing and waning changes but overall progression. He was given a short, 6 day course of tapered prednisone and found this to be of great help. I have paced a call to Dr. Simon in Pulmonary Medicine to further discuss. SUGGESTIONS/RECOMMENDATIONS 1. Continue IV ganciclovir 1.25 mg/kg (90 mg) three times weekly. On dialysis days give after dialysis. Mr. Singh will contact [facility] to order more medication. 2. Weekly CBC/differential, Qn CMV PCR while on IV ganciclovir. [facility]. 3. Tunneled PICC site care. We will cancel the PICC removal for today since we do not have the colonbiopsy results available to act upon during this visit. 4. Planned sinus surgery for August 21, 2021 by ENT (Dr. Pena). 5. Blood cultures drawn through dialysis catheter if chills and/or fever recur during dialysis session. 6. Blood cultures ordered for July 16, 2021 at [facility]. PATIENT EDUCATION Ready to learn, no apparent learning barriers were identified; learning preferences include listening. Explained diagnosis and treatment plan; patient expressed understanding of the content. Thank you for the opportunity to participate in the care of Mr. Singh. Trung Plasencia P.A.-C., M.S. ADDENDUM July 12, 2021 1:45 PM June 23, 2021 Colon, random biopsies: mild active chronic colitis. No dysplasia. CMV immunostain is negative. Patient notified in [facility] Patient rodolfo. Will plan to continue IV ganciclovir for a few more weeks given the ongoing mild active colitis and until Qn CMV PCR is undetected x 2 Trung Plasencia P.A.-C., M.S. TANNER documented in this encounter Plan of Treatment Upcoming Encounters Date Type Specialty Care Team Description 04/24/2022 Appointment Laboratory Medicine Angélica Granger P.A.-C. [address] [place] [phone] 04/25/2022 Office Visit Otorhinolaryngology Dex Matta APRN, CDemetriusNDemetriusP., M.S.N. [address] [place] [phone] 05/08/2022 Appointment Laboratory Medicine Angélica Granger P.A.-C. [address] [place] [phone] 05/08/2022 Clinical Admitting/Central Communication Scheduling 05/10/2022 Appointment Radiology Jeremie Rose M.D. [address] [place] [phone] 05/10/2022 Comprehensive Visit Orthopedic Surgery Warner Graves M.D. [address] [place] [phone] 05/22/2022 Appointment Laboratory Medicine Angélica Granger P.A.-C. [address] [place] [phone] 06/05/2022 Appointment Laboratory Medicine Angélica Granger P.A.-C. [address] [place] [phone] 06/19/2022 Appointment Laboratory Medicine Angélica Granger P.A.-C. [address] [place] [phone] 07/03/2022 Appointment Laboratory Medicine Angélica Granger P.A.-C. [address] [place] [phone] 07/17/2022 Appointment Laboratory Medicine Angélica Granger P.A.-C. [address] [place] [phone] 07/31/2022 Appointment Laboratory Medicine Angélica Granger P.A.-C. [address] [place] [phone] 08/14/2022 Appointment Laboratory Medicine Angélica Granger P.A.-C. [address] [place] [phone] 08/28/2022 Appointment Laboratory Medicine Angélica Granger P.A.-C. [address] [place] [phone] documented as of this encounter Results Bacteria / Rimma Culture, Blood #2 (07/16/2021 8:22 AM HIDE TANNER) [facility] Method Time Signature Bacteria/Negar No growth 07/21/2021 [facility] da Culture, after 5 9:02 AM HIDE TANNER Blood day/s of incubation. Specimen (Source) Anatomical Collection Method Collection Time Re ceived Time Location / / Volume Laterality Blood (Blood, 07/16/2021 8:22 07/16/2021 8:27 Peripheral Draw) AM HIDE TANNER AM HIDE TANNER Comment: Specimen Source Site: Blood Trung Plasencia P.A.-C., M.S. LAB MICROBIOLOGY - GENERAL ORDERABLES Performing Organization Address [facility] Phon e Number [address] [address] [place] [address] System [address] Bacteria / Rimma Culture, Blood #1 (07/16/2021 8:17 AM HIDE TANNER) [facility] Method Time Signature Bacteria/Negar No growth 07/21/2021 [facility] da Culture, after 5 9:02 AM HIDE TANNER Blood day/s of incubation. Specimen (Source) Anatomical Collection Method Collection Time Re ceived Time Location / / Volume Laterality Blood (Blood, 07/16/2021 8:17 07/16/2021 8:26 Peripheral Draw) AM HIDE TANNER AM HIDE TANNER Comment: Specimen Source Site: Blood Trung Plasencia P.A.-C., M.S. LAB MICROBIOLOGY - GENERAL ORDERABLES Performing Organization Address [facility] Phon e Number [address] [address] [place] [address] (ABNORMAL) CMV DNA Detect / Quant, Plasma (07/16/2021 8:16 AM HIDE TANNER) [facility] Method Time Signature CMV DNA <35 (A) Undetected [facility]2021 [facility] Detect/Quant, IU/mL 4:19 PM HIDE TANNER P Comment: Result in log IU/mL is <1.54. CMV DNA is detected, but level present i s <35 IU/mL (<1.54 log IU/mL). This assay cannot accurately quantify CMV DNA below this level. ----ADDITIONAL INFORMATION---- The quantification range of this assay i s 35 to 10,000,000 IU/mL (1.54 log to 7.00 log IU/mL). Testing was performed u sing the tika CMV test ([employer] with the tika 6800 System. Specimen Anatomical Collection Method Collection Time Receive d Time (Source) Location / / Volume Laterality Blood (Blood, 07/16/2021 8:16 AM 07/17/19 22 7:42 Venous) HIDE TANNER AM HIDE TANNER Trung Plasencia P.A.-C. M.S. LAB MICROBIOLOGY - BLOOD O RDERABLES Performing Organization Address City/State/ZIP Code Phon e Number [facility] [address] [place], [place] [address] [facility] [place] [address] Laboratory Medicine and Pathology [address] [place] (ABNORMAL) CBC with Differential, Blood (07/16/2021 8:16 AM HIDE TANNER) [facility] Method Time Signature Hemoglobin 10.4 (L) 13.2 - 07/16/2021 [facility] 16.6 g/dL 11:16 AM HIDE TANNER Hematocrit 32.0 (L) 38.3 - 07/16/2021 [facility] 48.6 % 11:16 AM HIDE TANNER Erythrocytes 3.34 (L) 4.35 - 07/16/2021 [facility] 5.65 11:16 AM HIDE TANNER x10(12)/L MCV 95.8 78.2 - 07/16/2021 [facility] 97.9 fL 11:16 AM HIDE TANNER RBC Distrib Width 13.3 11.8 - 07/16/2021 CN[facility] 14.5 % 11:16 AM HIDE TANNER Platelet Count 266 135 - 317 07/16/2021 [facility] x10(9)/L 11:16 AM HIDE TANNER Leukocytes 5.6 3.4 - 9.6 07/16/2021 CNFL x10(9)/L 11:16 AM HIDE TANNER Neutrophils 4.10 1.56 - 07/16/2021 CNFL 6.45 11:16 AM HIDE TANNER x10(9)/L Lymphocytes 0.87 (L) 0.95 - 07/16/2021 CNFL 3.07 11:16 AM HIDE TANNER x10(9)/L Monocytes 0.53 0.26 - 07/16/2021 CNFL 0.81 11:16 AM HIDE TANNER x10(9)/L Eosinophils 0.13 0.03 - 07/16/2021 CNFL 0.48 11:16 AM HIDE TANNER x10(9)/L Basophils 0.01 0.01 - 07/16/2021 CNFL 0.08 11:16 AM HIDE TANNER x10(9)/L Specimen Anatomical Collection Method Collection Time Receive d Time (Source) Location / / Volume Laterality Blood (Blood, 07/16/2021 8:16 AM 07/16/19 22 8:26 Venous) HIDE TANNER AM HIDE TANNER Trung Plasencia P.A.-C., M.S. LAB BLOOD ADD-ON Performing Organization Address City/State/[facility] Code Phon e Number [facility] [address] [place] [address] [place] [address] System [address] documented in this encounter Visit Diagnoses Diagnosis Colitis Cytomegalovirus (HCC) - Primary Transplant Liver (HCC) Medication Therapy Group Home Not Anticoa gulant Bronchiolitis Immunodeficiency Due To Drugs (HCC) Chronic Kidney Disease Stage 5 GFR Less Than 15 Dialysis Dependent (HCC) documented in this encounter Additional Health Concerns Assessment Noted Time PHQ-9 Depression Total Score: 4 11/28/2020 10:17 AM CD T documented as of this encounter Care Teams Food And Beverage Director Relationship Specialty Start Date End Date Elsewhere, Pcp PCP - General Family Medicine 07/29/17 [facility] - Laboratory Medicine 04/12/[address] [phone] documented as of this encounter
--- OUTSIDE RECORDS SUMMARY | 2022-04-13 12:09 | XMS_ITS | Encounter Summary ---
:1955 Author Organization [facility] Address [address] [place] [id number] Care Team Providers Name Role Phone Elsewhere, Pcp Primary Care Provider Unavailable Reason for Visit Reason Comments Med Refill Encounter Details Date Type Department Care Team Description 07/17/2021 Refill [facility] for Yusuf Gutierrez, Med Refill Transplantation and Clinical M.D ., M.P.H. 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 [address] [place] [phone] 04/25/2022 Office Visit Otorhinolaryngology Dex Matta, RAMONA, C.N.P., M.S.N. [address] [place] [phone] 05/08/2022 Appointment Laboratory Medicine Angélica Granger, P.A.-C. [address] [place] [phone] 05/08/2022 Clinical Admitting/Central Communication Scheduling 05/10/2022 Appointment Radiology Jeremie Rose M.D. [address] [place] [phone] 05/10/2022 Comprehensive Visit Orthopedic Surgery Warner Graves M.D. [address] [place] [phone] 05/22/2022 Appointment Laboratory Medicine Angélica Granger P.A.-C. [address] [place] [phone] 06/05/2022 Appointment Laboratory Medicine Angélica Granger P.A.-C. [address] [place] [phone] 06/19/2022 Appointment Laboratory Medicine Angélica Granger P.A.-C. [address] [place] [phone] 07/03/2022 Appointment Laboratory Medicine Angélica Granger P.A.-C. [address] [place] [phone] 07/17/2022 Appointment Laboratory Angélica Royal P.A.-C. [address] [place] [phone] 07/31/2022 Appointment Laboratory Angélica Royal P.A.-C. [address] [place] [phone] 08/14/2022 Appointment Laboratory Angélica Royal P.A.-C. [address] [place] [phone] 08/28/2022 Appointment Laboratory Angélica Royal P.A.-C. [address] [place] [phone] documented as of this encounter Visit Diagnoses Diagnosis Transplant Liver (HCC) Medication Therapy S3B Multi Sensor Operator Not Anticoa gulant documented in this encounter Additional Health Concerns Assessment Noted Time PHQ-9 Depression Total Score: 4 11/28/2020 10:17 AM CD T documented as of this encounter Care Teams Protective Signal Installer Helper Relationship Specialty Start Date End Date Elsewhere, Pcp PCP - General Family Medicine 07/29/17 [facility] - Laboratory Medicine 04/12/20 [place] [address] documented as of this encounter
--- OUTSIDE RECORDS SUMMARY | 2022-04-13 12:09 | XMS_ITS | Encounter Summary ---
:1955 Author Organization [facility] Address [address] [place] [address] Care Team Providers Name Role Phone Elsewhere, Pcp Primary Care Provider Unavailable Encounter Details Date Type Department Care Team Description 07/06/2021 Clinical Department of Toro Pena Otorhinolaryngology in [place], [place] [address] [facility] [address] [place] [phone] Social History Tobacco Use Types Packs/Day Years [...] at Date Recorded Male 05/16/2020 4:27 PM AUDIT TECH documented as of this encounter Miscellaneous Notes Telephone Encounter - Toro Pena M.D. - 07/06/2021 7:48 AM CST ----- Message from Otoniel Norwood Jr., D.O. sent at 07/05/2021 5:13 PM AUDIT TECH ----- Regarding: RE: Pre-operative clearance THANKS! No this KACIE is sufficient. Best and thanks Job ----- Message ----- From: Toro Pena M.D. Sent: 07/05/2021 4:22 PM AUDIT TECH To: Otoniel Norwood Jr., D.O. Subject: Pre-operative clearance Dr. Norwood, Mr. 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 You actually just did a pre-operative clearance exam for an upcoming fistula formation. I am also planning upcoming sinus surgery for him. Would that recent pre- operative exam be sufficient or would he require additional work up? Thank you, Toro T TECH documented in this encounter Plan of Treatment Upcoming Encounters Date Type Specialty Care Team Description 04/24/2022 Appointment Laboratory Medicine Angélica Granger P.A.-C. [address] [place] [phone] 04/25/2022 Office Visit Otorhinolaryngology Dex Matta APRN, C.N.P., M.S.N. [address] [place] [phone] 05/08/2022 Appointment Laboratory Medicine Angélica Granger P.A.-C. [address] [place] [phone] 05/08/2022 Clinical Admitting/Central Communication Scheduling 05/10/2022 Appointment Radiology Jeremie Rose M.D. [address] [place] [phone] 05/10/2022 Comprehensive Visit Orthopedic Surgery Warner Graves M.D. [address] [place] [phone] 05/22/2022 Appointment Laboratory Medicine Angélica Granger P.A.-C. [address] [place] [phone] 06/05/2022 Appointment Laboratory Medicine Angélica Granger P.A.-C. [address] [place] [phone] 06/19/2022 Appointment Laboratory Medicine Angélica Granger P.A.-C. [address] [place] [phone] 07/03/2022 Appointment Laboratory Medicine Angélica Granger P.A.-C. [address] [place] [phone] 07/17/2022 Appointment Laboratory Medicine Angélica Granger P.A.-C. [address] [place] [phone] 07/31/2022 Appointment Laboratory Medicine Angélica Granger P.A.-C. [address] [place] [phone] 08/14/2022 Appointment Laboratory Medicine Angélica Granger P.A.-C. [address] [place] [phone] 08/28/2022 Appointment Laboratory Medicine Angélica Granger P.A.-C. [address] [place] [phone] documented as of this encounter Visit Diagnoses Not on filedocumented in this encounter Additional Health Concerns Assessment Noted Time PHQ-9 Depression Total Score: 4 11/28/2020 10:17 AM CD T documented as of this encounter Care Teams Manager Utilization Review Relationship Specialty Start Date End Date Elsewhere, Pcp PCP - General Family Medicine 07/29/17 [facility] - Laboratory Medicine 04/12/[address] [address] documented as of this encounter
--- OUTSIDE RECORDS SUMMARY | 2022-04-13 12:09 | XMS_ITS | Encounter Summary ---
:1955 Author Organization [facility] Address [address] [place] [address] Care Team Providers Name Role Phone Elsewhere, Pcp Primary Care Provider Unavailable Reason for Referral Specialty Diagnoses / Procedures Referred By Contact Refer red To Contact [address] [phone] Referral ID Status Reason Start Date Expiration Date Visits Requ ested Visits Authorized Scheduling Instructions PICC site cares CLOTHIER Encounter Details Date Type Department Care Team Description 07/16/2021 Orders Only Department of Talia King itis Chronic Infusion Therapy in [place]., R.N. (Primary Dx) [address] [phone] Social History Tobacco Use Types Packs/Day Years [...] 12/15/2021 organizations such as restorationist groups, unions, fraNumerous or athletic groups, or school groups? How [...] at Date Recorded Male 05/16/2020 4:27 PM FLAT CLOTHIER documented as of this encounter Plan of Treatment Upcoming Encounters Date Type Specialty Care Team Description 04/24/2022 Appointment Laboratory Medicine Angélica Granger P.ADemetrius-C. 200 [place] [phone] 04/25/2022 Office Visit Otorhinolaryngology Dex Matta APRN, C.N.P., M.S.N. [address] [place] [phone] 05/08/2022 Appointment Laboratory Medicine Angélica Granger P.A.-CDemetrius [address] [place] [phone] 05/08/2022 Clinical Admitting/Central Communication Scheduling 05/10/2022 Appointment Radiology Jeremie Rose M.D. [address] [place] [phone] 05/10/2022 Comprehensive Visit Orthopedic Surgery Warner Graves M.D. [address] [place] [phone] 05/22/2022 Appointment Laboratory Medicine Angélica Granger P.A.-C. [address] [place] [phone] 06/05/2022 Appointment Laboratory Medicine Angélica Granger P.A.-C. [address] [place] [phone] 06/19/2022 Appointment Laboratory Medicine Angélica Granger P.A.-C. [address] [place] [phone] 07/03/2022 Appointment Laboratory Medicine Angélica Granger P.A.-C. [address] [place] [phone] 07/17/2022 Appointment Laboratory Medicine Angélica Granger P.A.-C. [address] [place] [phone] 07/31/2022 Appointment Laboratory Medicine Angélica Granger P.A.-C. [address] [place] [phone] 08/14/2022 Appointment Laboratory Medicine Angélica Granger P.A.-C. [address] [place] [phone] 08/28/2022 Appointment Laboratory Medicine Angélica Granger P.A.-C. [address] [place] [phone] Scheduled Referrals Name Type Priority Associated Diagnoses Order S chedule Medication Outpatient Routine Rhinosinusitis Chronic 12 Oc currences Infusion Therapy; Referral starting Other 07/16/2021 unti l 07/16/2022 documented as of this encounter Visit Diagnoses Diagnosis Rhinosinusitis Chronic - Primary documented in this encounter Additional Health Concerns Assessment Noted Time PHQ-9 Depression Total Score: 4 11/28/2020 10:17 AM CD T documented as of this encounter Care Teams Faculty Physician Relationship Specialty Start Date End Date Elsewhere, Pcp PCP - General Family Medicine 07/29/17 [facility] - Laboratory Medicine 04/12/[address] [address] documented as of this encounter
--- OUTSIDE RECORDS SUMMARY | 2022-04-13 12:09 | XMS_ITS | Encounter Summary ---
:1955 Author Organization [facility] Address [address] [place] [address] Care Team Providers Name Role Phone Elsewhere, Pcp Primary Care Provider Unavailable Reason for Referral Outpatient (Routine) - Closed Specialty Diagnoses / Procedures Referred By Contact Refer red To Contact Diagnoses Transplant Liver (HCC) Medication Therapy Culinary Instructor Not Anticoagulant Colitis Cytomegalovirus (HCC) Trung Plasencia P.A.-C., [facility] Procedures Colonoscopy M.S. [address] [place] [address] Referral ID Status Reason Start Date Expiration Date Visits Requ ested Visits Authorized [id number] Closed 06/14/2021 06/14/2022 1 1 AND FROST INSULATOR Reason for Visit Outpatient (Routine) - Closed Specialty Diagnoses / Procedures Referred By Contact Refer red To Contact Diagnoses Transplant Liver (HCC) Medication Therapy Culinary Instructor Not Anticoagulant Colitis Cytomegalovirus (HCC) Trung Plasencia P.A.-C., [facility] Procedures Colonoscopy M.S. [address] [place], [place] [phone] Referral ID Status Reason Start Date Expiration Date Visits Requ ested Visits Authorized [id number] Closed 06/14/2021 06/14/2022 1 1 Encounter Details Date Type Department Care Team Description 07/10/2021 Hospital Division of Guy Plasencia Live r (HCC); Encounter Gastroenterology in [place], Medicati on Therapy Senior Living Not Anticoagulant; [place], [place] Edmundo, Colitis Cytomegalovirus (HCC ) [address] [place] [phone] [place] [address] Social History Tobacco Use Types Packs/Day Years [...] Date Recorded Male 05/16/2020 4:27 PM HEAT AND FROST INSULATOR documented as of this encounter Last Filed Vital Signs Vital Sign Reading Time Taken Comments Blood Pressure 139/83 07/10/2021 11:19 AM HEAT AND FROST INSULATOR Pulse 65 07/10/2021 11:19 AM HEAT AND FROST INSULATOR Temperature 36.1 ??C (97 ??F) 07/10/2021 11:19 AM HEAT AND FROST INSULATOR Respiratory Rate 23 07/10/2021 11:19 AM HEAT AND FROST INSULATOR Oxygen Saturation 100% 07/10/2021 11:19 AM HEAT AND FROST INSULATOR Inhaled Oxygen Concentration - - Weight 75 kg (165 lb 5.5 oz) 07/10/2021 10:21 AM HEAT AND FROST INSULATOR Height 174 cm (5' 8.5) 07/10/2021 10:21 AM HEAT AND FROST INSULATOR Body Mass Index 24.77 07/10/2021 10:21 AM HEAT AND FROST INSULATOR documented in this encounter Medications at Time of Discharge Medication Sig Dispensed Refills Start Date End Date atorvastatin (LIPITOR) TAKE 1 TABLET(10 MG) 90 tablet 3 10 mg tablet BY MOUTH DAILY acetaminophen (TYLENOL) Take 1 tablet by 0 [...] Chew 81 mg daily. 0 2017 tablet benzonatate (TESSALON Take 100 mg by 0 [...] DAILY Transplant Liver (HCC), Medication Therapy Senior Living Not Anticoagulant Spiriva Respimat 2.5 INHALE 2 PUFFS BY 4 g 0 01/09/20 21 07/26/2021 mcg/actuation inhaler MOUTH DAILY tacrolimus (PROGRAF) Take 2 capsules (1 360 capsule 3 202007/16/2021 0.5 mg mg total) by mouth 2 capsuleIndications: (two) times a day. Transplant Liver (HCC), Medication Therapy Senior Living Not Anticoagulant UNABLE TO FIND by nasal 0 10/12/2021 (alternating) route 2 (two) times a day. Azelastine 1mg to Sinus Rinse twice daily. [facility] documented as of this encounter H&P Notes Otoniel Gudino M.D., M.H.P.E. - 07/10/2021 10:30 AM CST ASSESSMENT / PLAN Patient Name: Bruce Singh Colonoscopy Procedure Department : DIVISION OF GASTROENTEROLOGY IN [place], [place] SUBJECTIVE Past Medical History: Diagnosis Date ??? Blood Transfusion No Diagnosis 2012 ??? Chronic Kidney Disease Stage 4 Glomerular Filtration Rate 15-29 (HCC) ??? Concussion Loss Of Consciousness Unspecified Duration Initial 2013 ??? Coronary Artery Disease (Unspecified) 2016 ??? Hepatitis Autoimmune (HCC) ??? Hyperlipidemia 2014 ??? Hypertension NOS 2015 ??? Other Complications Of Liver Transplant (HCC) ??? Other Injury Of Unspecified Body Region many in the past ??? Polyp Colon Past Surgical History: Procedure Laterality Date ??? ERCP 02/12/2012 ERCP. Stent removal. Stone and sludge extraction. Fluoroscopy. ??? ERCP 12/07/2011 ERCP ??? ERCP 09/24/2011 ERCP. Biliary Sphincterotomy, placement of biliary stents. ??? ERCP W/ PLASTIC STENT PLACEMENT 12/12/2011 ERCP. Fluorsocopy. Stent removal. Stent extraction. Stent placement. ??? EXTRACORPOREAL SHOCK WAVE LITHOTRIPSY N/A 04/29/2013 >1. Shockwave lithotripsy to stented common bile duct. 2. Cholangiogram via nasobiliary tube (a total of 40 cc of Omnipaque contrast injected). ??? ORGAN TRANSPLANT 2012 ??? OTHER SURGICAL HISTORY 2009 ??? TRANSPLANT LIVER - DONOR WITH BACK TABLE PREP LIVER ALLOGRAFT N/A 05/25/1999 >Orthotopic liver transplant. Cholecystectomy. Choledochocholedochostomy. Infrarenal aortic interposition graft. ??? TRANSPLANT LIVER - DONOR WITH BACK TABLE PREP LIVER ALLOGRAFT N/A 06/13/2013 >1. Orthotopic liver retransplantation. 2. Back table preparation donor liver allograftwith an arterial anastomosis between the replaced right hepatic artery and the splenic artery stump.Incisional hernia repair. ??? TYMPANOSTOMY TUBE PLACEMENT Right 12/23/2016 >Right-sided tympanostomy tube placement. ??? TYMPANOSTOMY TUBE PLACEMENT Right 06/02/2017 >Right-sided myringotomy with tympanostomy tube placement. ??? UMBILICAL HERNIA REPAIR N/A 09/03/2013 >Umbilical hernia repair. ??? VASECTOMY 1990 Social History Socioeconomic History ??? Marital status: Single ??? Highest education level: Some college, no degree Tobacco Use ??? Smoking status: Never Smoker ??? Smokeless tobacco: Never Used Vaping Use ??? Vaping Use: never used Substance and Sexual Activity ??? Alcohol use: No ??? Drug use: No ??? Sexual activity: Not Currently control/protection: Vasectomy Social Determinants of Health Financial Resource Strain: Low Risk ??? Difficulty of Paying Living Expenses: Not hard at all Food Insecurity: No Food Insecurity ??? Worried About Running Out of Food in the Last Year: Never true ??? Ran Out of Food in the Last Year: Never true Transportation Needs: No Transportation Needs ??? Lack of Transportation (Medical): No ??? Lack of Transportation (Non-Medical): No Physical Activity: Inactive ??? Days of Exercise per Week: 0 days ??? Minutes of Exercise per Session: 0 min Stress: No Stress Concern Present ??? Feeling of Stress : Not at all Social Connections: Moderately Isolated ??? Frequency of Communication with Friends and Family: More than three times a week ??? Frequency of Social Gatherings with Friends and Family: Twice a week ??? Attends Restoration Services: More than 4 times per year ??? Active Member of Clubs or Organizations: No ??? Attends Club or Organization Meetings: Never ??? Marital Status: Never Intimate Partner Violence: Not At Risk ??? Fear of Current or Ex-Partner: No ??? Emotionally Abused: No ??? Physically Abused: No ??? Sexually Abused: No Housing Stability: Low Risk ??? Unable to Pay for Housing in the Last Year: No ??? Number of Places Lived in the Last Year: 1 ??? Unstable Housing in the Last Year: No Ambulatory Infusion Pump/Implanted Process Control Operator- PICC Single Lumen 06/14/21 Permanent (tunneled, implanted) Valved Left Chest (Active) Hemodialysis Catheter Permanent (tunneled, implanted) Right Chest (Active) PICC Single Lumen 06/14/21 Permanent (tunneled, implanted) Valved Left Chest (Active) 06/14/21 1101 Chest Line Type (REQUIRED): Permanent (tunneled, implanted) Placed by External Staff?: Procedural Pause Completed: Yes Optimal Site Selected: Yes Catheter Time Out Checklist Completed: Hand Hygiene Performed Prior to Insertion: Site Prep: Chlorhexidine (Preferred) Site Prep Agent has Completely Dried Before Insertion: Yes Sterile Barriers Used : Cap;Gloves;Gown;Large drape;Mask (Clinician);Mask (All others in room) Reason for Not Performing Maximum Sterile Barrier Technique: N/A Local Anesthetic: Subcutaneous lidocaine Cath Type: Valved Select if Power Injectable: Power injectable Size: 5 Fr Description: single lumen Catheter Length (cm): 29 cm Orientation: Left Initial Extremity Circumference (cm): Initial Exposed Catheter (cm): Securement Method: Sutured Placed by: Dr. Sheppard Insertion attempts: 1 Placement Verification: X-ray Lot Number : [id number] Removal Reason (REQUIRED): Removal Catheter Length (cm): Removal Assessment: Hemodialysis Catheter Permanent (tunneled, implanted) Right Chest (Active) 05/31/21 1517 Chest Line Type (REQUIRED): Permanent (tunneled, implanted) Procedural Pause Completed: Yes Optimal Site Selected: Yes Catheter Time Out Checklist Completed: Yes Hand Hygiene Performed Prior to Insertion: Yes Site Prep: Chlorhexidine (Preferred) Site Prep Agent has Completely Dried Before Insertion: Yes Sterile Barriers Used : Cap;Gloves;Gown;Large drape;Mask (Clinician);Mask (All others in room) Reason for Not Performing Maximum Sterile Barrier Technique: N/A Local Anesthetic: Subcutaneous lidocaine Technique: Ultrasound guidance Size (Fr): 14.5 Catheter Length (cm): 23 cm Initial Exposed Catheter (cm): Placed by External Staff?: Placed by: Dr Pastor Insertion attempts: 1 Securement Method: Placement Verification: X-ray;Blood return Orientation: Right Specific Location (Optional): Access Notes: Removal Reason (REQUIRED): Removal Catheter Length (cm): Catheter Tip Cultured: Nothing was implanted during the procedure OBJECTIVE Weight: 75 kg Pain Score: 0 - No pain Consents Obtained: written The benefits, risks and alternatives of sedation or anesthesia, as well as the names, roles, and responsibilities of the healthcare team members, were discussed with the patient and/or decision maker: yes Procedure / Reason for visit: GI Endoscopic Procedure The following portions of the patient's history were reviewed and updated as appropriate: allergies,current medications, family history, medical history, surgical history, social history and problem list. yes Review of systems: pertinent ROS negative Mallampati: II - soft palate, uvula, fauces visible Heart: normal Lung: normal General / Constitutional: normal ASA physical exam: class 3 - patient with severe systemic disease Patient seen, evaluated and approved for sedation Sedation plan: sedation not required Baseline Behavior: Psychosocial (WDL): Within Defined Limits Abdominal Exam: Abdomen Inspection: Soft, Rounded Dental Information: Teeth: Intact AND FROST INSULATOR documented in this encounter Plan of Treatment Upcoming Encounters Date Type Specialty Care Team Description 04/24/2022 Appointment Laboratory Medicine Angélica Granger P.A.-C. [address] [place] [phone] 04/25/2022 Office Visit Otorhinolaryngology Dex Matta APRN, CDemetriusNDemetriusP., M.S.N. [address] [place] [phone] 05/08/2022 Appointment Laboratory Medicine Angélica Granger P.A.-C. [address] [place] [phone] 05/08/2022 Clinical Admitting/Central Communication Scheduling 05/10/2022 Appointment Radiology Jeremie Rose M.D. [address] [place] [phone] 05/10/2022 Comprehensive Visit Orthopedic Surgery Warner Graves M.D. [address] [place] [phone] 05/22/2022 Appointment Laboratory Medicine Angélica Granger P.A.-C. [address] [place] [phone] 06/05/2022 Appointment Laboratory Medicine Angélica Granger P.A.-C. [address] [place] [phone] 06/19/2022 Appointment Laboratory Medicine Angélica Granger P.A.-C. [address] [place] [phone] 07/03/2022 Appointment Laboratory Medicine Angélica Granger P.A.-C. [address] [place] [phone] 07/17/2022 Appointment Laboratory Medicine Angélica Granger P.A.-CDemetrius [address] [place] [phone] 07/31/2022 Appointment Laboratory Medicine Angélica Granger P.A.-C. [address] [place] [phone] 08/14/2022 Appointment Laboratory Medicine Angélica Granger P.A.-C. [address] [place] [phone] 08/28/2022 Appointment Laboratory Medicine Angélica Granger P.A.-CDemetrius [address] [place] [phone] documented as of this encounter Procedures Procedure Name Priority Date/Time Associated Diagnosis Comme nts SURGICAL PATHOLOGY Routine 07/10/2021 11:02 Resul ts for this AM HEAT AND FROST INSULATOR procedure are i n the results section. COLONOSCOPY Routine 07/10/2021 10:56 Transplant Live r (HCC) Results for this AM HEAT AND FROST INSULATOR Medication Therapy Long proc edure are in Term Not Anticoa gulant the results Colitis Cytomegalovirus sect ion. (HCC) COLONOSCOPY Routine 07/10/2021 10:56 Transplant Live r (HCC) AM HEAT AND FROST INSULATOR Medication Therapy Culinary Instructor Not Anticoa gulant Colitis Cytomegalovirus (HCC) documented in this encounter Results Surgical Pathology (07/10/2021 11:02 AM HEAT AND FROST INSULATOR) Component Value Ref Test Analysis Performed Pathologis t Range Method Time At Signature 07/12/2021 DTL 1:07 PM HEAT AND FROST INSULATOR Participated in Jenny Ta 07/12/2021 DTJolly the M.D. -Pathology 1:07 PM Interpretation Resident HEAT AND FROST INSULATOR Report Leonid Oneal M.D. 07/12/2021 DT L electronically 1:07 PM signed by HEAT AND FROST INSULATOR I verify that I have examined all relevant slides/materials for the specimen(s) and rendered or confirmed the diagnosis. Gross Description Received in formalin labeled with the patient's n gonzalez, 07/12/2021 DTL medical record number, and colon, random sites (colon) 1:07 PM are nine pale grady-red irregular soft tissues, ranging from HEAT AND FROST INSULATOR 0.2-0.5 cm in greatest dimension. Specimens are submitted en toto in cassette A1. ??Grossed by ARG. Disclaimer This test was developed using an analyte specific reag ent. 07/12/2021 DT Its performance characteristics were determined by Holman 1:07 PM [facility] in a manner consistent with CLIA requirements. This HEAT AND FROST INSULATOR test has not been cleared or approved by the U.S. Food and Drug Administration. Interpretation FINAL DIAGNOSIS 07/12/2021 DTL A. ??Colon, random sites, endoscopic biopsy: Mild active 1:07 PM chronic colitis. ??No dysplasia. ??A CMV immunostain is HEAT AND FROST INSULATOR negative. Specimen (Source) Anatomical Collection Method Collection Time Re ceived Time Location / / Volume Laterality Biopsy (Colon) 07/10/2021 11:02 AM HEAT AND FROST INSULATOR Narrative This result has an attachment that is no t available. Otoniel Gudino M.D., M.H.P.E. LAB SURG PATH ORDERABL ES Performing Organization Address City/State/ZIP Code Phon e Number [facility] - [address] [place], [place] [address] [facility] [place] [place] [address] [facility] [address] Colonoscopy (07/10/2021 10:56 AM HEAT AND FROST INSULATOR) Specimen (Source) Anatomical Collection Method Collection Time Re ceived Time Location / / Volume Laterality 07/10/2021 10:56 AM HEAT AND FROST INSULATOR Impressions [employer] - 07/10/2021 11:15 AM HEAT AND FROST INSULATOR Post-op Diagnoses: ? - The examined portion of the ile um was normal. ? - Patchy areas of mild inflammati on were found in the entire examined ? colon secondary to colitis. Biops ied. ? - The examination was otherwise n ormal. Narrative [employer] - 07/10/2021 11:15 AM HEAT AND FROST INSULATOR [facility] GI GI Patient Name: Bruce Singh Date of : 1955 Age: 65 Gender: Male Procedure Date: 07/10/2021 Procedure: ? Colonosc opy Providers: ? Otoniel Gudino MD Referring Provider: ?Trung her Pre-op Diagnoses: ?Follow-up o f colitis Recommendation: ? - The patient will be observed po st-procedure, until all discharge ? criteria are met. ? - Await pathology results. ? - Return to referring physician keyana s previously scheduled. Findings: ? The terminal ileum appeared dax l. ? Patchy areas of mild inflammation characterized by erythema, granularity ? and shallow small aphthous ulcera tions were found in the entire colon. ? Biopsies were taken with a cold f orceps for histology. ? The exam was otherwise without ab normality. Procedural Details: ? The patient was seen, evaluated, history reviewed, airway and heart-lung ? exams were performed by licensed provider and were satisfactory for ? planned level of sedation care. ? The risks, benefits and alternati ves for the procedure and sedation were ? discussed and informed consent wa s obtained. A procedural pause was ? conducted in the presence of assi sting personnel to verify the correct ? patient identity and procedure to be performed. Throughout the ? procedure, the patient's blood pr essure, pulse, and oxygen saturations ? were monitored continuously. The PCF-H190DL Colonoscope was introduced ? under direct vision through the a nus and advanced to the terminal ileum, ? with identification of the append iceal orifice and IC valve. The ? colonoscopy was performed without difficulty. The patient tolerated the ? procedure well. The quality of th e bowel preparation was good. The ? quality of the bowel preparation was evaluated using the BBPS (Reading ? Bowel Preparation Scale) with sco res of: Right Colon = 3 (entire mucosa ? seen well with no residual staini ng, small fragments of stool or opaque ? liquid), Transverse Colon = 3 (en tire mucosa seen well with no residual ? staining, small fragments of stoo l or opaque liquid) and Left Colon = 2 ? (minor amount of residual stainin g, small fragments of stool and/or ? opaque liquid, but mucosa seen we ll). The total BBPS score equals 8. Estimated Blood Loss: ?Estimated blo od loss: none. Complications: ? No immedia te complications. Sedation: ? No sedation administered. Attending Participation: I personally pe rformed the entire procedure. Otoniel Gudino MD 07/10/2021 11:15:26 AM This report has been signed electronical ly. Number of Addenda: 0 Trung Plasencia P.A.-C., M.S. GI PROCEDURE ORDERABLES Performing Organization Address City/State/ZIP Code Phon e Number [employer] NA documented in this encounter Visit Diagnoses Diagnosis Transplant Liver (HCC) Medication Therapy Culinary Instructor Not Anticoa gulant Colitis Cytomegalovirus (HCC) documented in this encounter Additional Health Concerns Assessment Noted Time PHQ-9 Depression Total Score: 4 11/28/2020 10:17 AM CD T documented as of this encounter Care Teams Superintendent Board Mill Relationship Specialty Start Date End Date Elsewhere, Pcp PCP - General Family Medicine 07/29/17 [facility] - Laboratory Medicine 04/12/[address] [id number] documented as of this encounter
--- OUTSIDE RECORDS SUMMARY | 2022-04-13 12:09 | XMS_ITS | Encounter Summary ---
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 [address] [place] [phone] 04/25/2022 Office Visit Otorhinolaryngology Dex Matta APRN, C.N.P., M.S.N. [address] [place] [phone] 05/08/2022 Appointment Laboratory Medicine Angélica Granger P.A.-CDemetrius [address] [place] [phone] 05/08/2022 Clinical Admitting/Central Communication Scheduling 05/10/2022 Appointment Radiology Jeremie Rose M.D. [address] [place] [phone] 05/10/2022 Comprehensive Visit Orthopedic Surgery Warner Graves M.D. [address] [place] [phone] 05/22/2022 Appointment Laboratory Medicine Angélica Granger P.A.-CDemetrius [address] [place] [phone] 06/05/2022 Appointment Laboratory Medicine Angélica Granger P.A.-C. [address] [place] [phone] 06/19/2022 Appointment Laboratory Medicine Angélica Granger P.A.-C. [address] [place] [phone] 07/03/2022 Appointment Laboratory Medicine Angélica Granger P.A.-C. [address] [place] [phone] 07/17/2022 Appointment Laboratory Medicine Angélica Granger P.A.-C. [address] [place] [phone] 07/31/2022 Appointment Laboratory Medicine Angélica Granger P.A.-C. [address] [place] [phone] 08/14/2022 Appointment Laboratory Angélica Royal P.A.-C. [address] [place] [phone] 08/28/2022 Appointment Laboratory Medicine Angélica Granger P.A.-C. [address] [place] [phone] documented as of this encounter Visit Diagnoses Diagnosis Rhinosinusitis Chronic - Primary documented in this encounter Additional Health Concerns Assessment Noted Time PHQ-9 Depression Total Score: 4 11/28/2020 10:17 AM CD T documented as of this encounter Care Teams Senior Devops Engineer Relationship Specialty Start Date End Date Elsewhere, Pcp PCP - General Family Medicine 07/29/17 [facility] - Laboratory Medicine 04/12/20 [place] [phone] documented as of this encounter
--- OUTSIDE RECORDS SUMMARY | 2022-04-13 12:09 | XMS_ITS | Encounter Summary ---
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 [address] [place] [phone] 04/25/2022 Office Visit Otorhinolaryngology Dex Matta APRN, C.N.P., M.S.N. [address] [place] [phone] 05/08/2022 Appointment Laboratory Medicine Angélica Granger P.A.-C. [address] [place] [phone] 05/08/2022 Clinical Admitting/Central Communication Scheduling 05/10/2022 Appointment Radiology Jeremie Rose M.D. [address] [place] [phone] 05/10/2022 Comprehensive Visit Orthopedic Surgery Warner Graves M.D. [address] [place] [phone] 05/22/2022 Appointment Laboratory Medicine Angélica Granger P.A.-C. [address] [place] [phone] 06/05/2022 Appointment Laboratory Medicine Angélica Granger P.A.-C. [address] [place] [phone] 06/19/2022 Appointment Laboratory Medicine Angélica Granger P.A.-C. [address] [place] [phone] 07/03/2022 Appointment Laboratory Medicine Angélica Granger P.A.-C. [address] [place] [phone] 07/17/2022 Appointment Laboratory Medicine Angélica Granger P.A.-C. [address] [place] [phone] 07/31/2022 Appointment Laboratory Medicine Angélica Granger P.A.-C. [address] [place] [phone] 08/14/2022 Appointment Laboratory Medicine Angélica Granger P.A.-C. [address] [place] [phone] 08/28/2022 Appointment Laboratory Medicine Angélica Granger P.A.-C. [address] [place] [phone] documented as of this encounter Procedures Procedure Name Priority Date/Time Associated Comments Diagnosis GASTROENTEROLOGY IMAGE Routine 07/10/2021 11:00 R esults for this EXAM AM SHANK PIECE TACKER procedure are i n the results section. documented in this encounter Results Colon, Entire colon Colonoscopy-Gastroenterology Image Exam (07/10/2021 11:00 AM SHANK PIECE TACKER) Specimen (Source) Anatomical Collection Method Collection Time Re ceived Time Location / / Volume Laterality 07/10/2021 10:56 AM SHANK PIECE TACKER Narrative IIMS - 07/10/2021 11:19 AM SHANK PIECE TACKER This order has been created and auto-finalized [...] as of this encounter Care Teams Supervisor Gluing Relationship Specialty Start Date End Date Elsewhere, Pcp PCP - General Family Medicine 07/29/17 [facility] - Laboratory Medicine 04/12/[address] [address] documented as of this encounter
--- OUTSIDE RECORDS SUMMARY | 2022-04-13 12:09 | XMS_ITS | Encounter Summary ---
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 - 07/17/2021 4:30 PM CST He is scheduled for surgery on 07/26 after getting the green-light from Dr. Barber. Thanks! -Damaso ICAL CARE NURSE Telephone Encounter - Carly Nieto - 07/17/2021 3:18 PM CST Mr. Singh calls back in today because he hadn't heard back yet on the status of being rescheduled.I explained the situation, and he would like to be contacted if there is another opening that becomes available. He did state that he has dialysis on Friday, Friday, and Friday, but if he needed to he could try to get it scheduled here at [place] to do dialysis in the morning and surgery later? Not sure if that would be an option for him, otherwise he would need to have a Friday or surgicaldate. Thank you, Carly ICAL CARE NURSE Telephone Encounter - Kecia Trinidad - 07/17/2021 9:57 AM CST Patient called stating he received a call last Friday from a gentleman who said they would be able to move his surgery up. He dialyzes M-W-F so would need a or . He is getting his COVID testing 07/21 and also getting a fistula put in on 07/24. I did mention 07/26 as a potential date and he would really like that date, it works well for him. He can be reached at [phone] ICAL CARE NURSE documented in this encounter Plan of Treatment Upcoming Encounters Date Type Specialty Care Team Description 04/24/2022 Appointment Laboratory Medicine Angélica Granger P.A.-C. [address] [place] [phone] 04/25/2022 Office Visit Otorhinolaryngology Dex Matta APRN, C.N.P., M.S.N. [address] [place] [phone] 05/08/2022 Appointment Laboratory Medicine Angélica Granger P.A.-CDemetrius [address] [place] [phone] 05/08/2022 Clinical Admitting/Central Communication Scheduling 05/10/2022 Appointment Radiology Jeremie Rose M.D. [address] [place] [phone] 05/10/2022 Comprehensive Visit Orthopedic Surgery Warner Graves M.D. [address] [place] [phone] 05/22/2022 Appointment Laboratory Medicine Angélica Granger P.A.-CDemetrius [address] [place] [phone] 06/05/2022 Appointment Laboratory Medicine Angélica Granger P.A.-C. [address] [place] [phone] 06/19/2022 Appointment Laboratory Medicine Angélica Granger P.A.-C. [address] [place] [phone] 07/03/2022 Appointment Laboratory Medicine Angélica Granger P.A.-C. [address] [place] [phone] 07/17/2022 Appointment Laboratory Medicine Angélica Granger P.A.-C. [address] [place] [phone] 07/31/2022 Appointment Laboratory Medicine Angélica Granger P.A.-C. [address] [place] [phone] 08/14/2022 Appointment Laboratory Medicine Angélica Granger P.A.-C. [address] [place] [address] [phone] 08/28/2022 Appointment Laboratory Medicine Angélica Granger P.A.-C. [address] [place] [phone] documented as of this encounter Visit Diagnoses Not on filedocumented in this encounter Additional Health Concerns Assessment Noted Time PHQ-9 Depression Total Score: 4 11/28/2020 10:17 AM CD T documented as of this encounter Care Teams Compressor Repairer Relationship Specialty Start Date End Date Elsewhere, Pcp PCP - General Family Medicine 07/29/17 [facility] - Laboratory Medicine 04/12/[address] [address] documented as of this encounter
[2022-04-13 12:10] VITALS: PULSE 59; RESP 22; O2SAT 97
--- OUTSIDE RECORDS SUMMARY | 2022-04-13 12:10 | XMS_ITS | Encounter Summary ---
:1955 Author Organization [facility] Address [address] [place] [address] Care Team Providers Name Role Phone Elsewhere, Pcp Primary Care Provider Unavailable Encounter Details Date Type Department Care Team Description 06/19/2021 Clinical Communication [place] [facility] for Leena, MMaury Transplantation and [address] [place] [address] Clinical [facility] in [place], [place] [phone] [place] [address] [place] [address] (Work) [phone] Social History Tobacco Use Types Packs/Day Years [...] at Date Recorded 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 [address] [place] [phone] 04/25/2022 Office Visit Otorhinolaryngology Dex Matta APRN, C.N.P., M.S.N. [address] [place] [phone] 05/08/2022 Appointment Laboratory Medicine Angélica Granger P.A.-C. [address] [place] [phone] 05/08/2022 Clinical Admitting/Central Communication Scheduling 05/10/2022 Appointment Radiology Jeremie Rose M.D. [address] [place] [phone] 05/10/2022 Comprehensive Visit Orthopedic Surgery Warner Graves M.D. [address] [place] [phone] 05/22/2022 Appointment Laboratory Medicine Angélica Granger P.A.-C. [address] [place] [phone] 06/05/2022 Appointment Laboratory Medicine Angélica Granger P.A.-C. [address] [place] [phone] 06/19/2022 Appointment Laboratory Medicine Angélica Granger P.A.-C. [address] [place] [phone] 07/03/2022 Appointment Laboratory Medicine Angélica rGanger P.A.-C. [address] [place] [phone] 07/17/2022 Appointment Laboratory Medicine Angélica Granger P.A.-C. [address] [place] [phone] 07/31/2022 Appointment Laboratory Medicine Angélica Granger P.A.-C. [address] [place] [phone] 08/14/2022 Appointment Laboratory Medicine Angélica Granger P.A.-C. [address] [place] [phone] 08/28/2022 Appointment Laboratory Medicine Angélica Granger P.A.-C. [address] [place] [phone] documented as of this encounter Visit Diagnoses Not on filedocumented in this encounter Additional Health Concerns Assessment Noted Time PHQ-9 Depression Total Score: 4 11/28/2020 10:17 AM CD T documented as of this encounter Care Teams Bobbin Handler Relationship Specialty Start Date End Date Elsewhere, Pcp PCP - General Family Medicine 07/29/17 [facility] - Laboratory Medicine 04/12/[address] [address] documented as of this encounter
--- OUTSIDE RECORDS SUMMARY | 2022-04-13 12:10 | XMS_ITS | Encounter Summary ---
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 [address] [place], [place] [phone] Referral ID Status Reason Start Date Expiration Date Visits Requ ested Visits Authorized [id number] Closed 06/04/2021 06/04/2022 1 1 Encounter Details Date Type Department Care Team Description 06/21/2021 Hospital Encounter Department of [place], Hyperten ronaldo And Chronic Kidney Disease Stage 5 (HCC); Radiology, Kd Tubbs Jr., Chronic Fa ilure 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); Building, in D.O. 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 ganciclovir 90 mg in D5W Infuse 90 mg into a 1 each 0 07/25/2021 100 mL IVPB venous catheter 3 (three) times a week. Administer after dialysis on dialysis days. predniSONE (DELTASONE) Take 2 tablets (40 10 tablet 0 06/2106/26/2021 20 mg tablet mg total) by mouth daily for 5 days. sodium chloride 0.9 % Infuse 5 mL into a 28 each 0 202007/27/2021 injection venous catheter as needed for line care (as per agency protocol. For PICC.). vancomycin (VANCOCIN) Take 1 capsule (125 42 capsule 0 06/1207/03/2021 125 mg capsule mg total) by mouth 2 (two) times a day for 21 days. C. Diff. Prophylaxis while on Bactrim. acetaminophen (TYLENOL) Take 1 tablet (500 0 /06/202110/12/2021 500 mg tablet mg total) by mouth every 6 (six) hours as needed for pain. budesonide (Pulmicort) Mix 1 ampule in 120 mL 6 07/18/1907/30/2021 0.5 mg/2 mL nebulizer sinus irrigation solution bottle and irrigate twice daily. calcium carb/magnesium Take 2 tablets by 0 10/13/2021 oxid/D3 (CALCIUM mouth 2 (two) times MAGNESIUM + D ORAL) a day. Total of 700 mg of calcium, 350 mg of magnesium, and 400 IU of vitamin D doxazosin (CARDURA) 4 mg Take 1 tablet (4 mg 90 tablet 3 07/25/2021 tabletIndications: total) by mouth at Hypertension Essential [...] tabletIndications: Transplant Liver (HCC) NIFEdipine XL (PROCARDIA Take 3 tablets (90 270 tablet 3 07/05/2021 XL) 30 mg 24 hr tablet mg total) by mouth daily. polyethylene Drink 1st portion 4000 mL 0 06/14/202107/10 glycol-electrolytes of prep at 6 PM the (GoLYTELY) evening before. 2nd [id number] -5.86 portion must be gram started 3 hours solutionIndications: before and finished Transplant Liver ([facility]), 2 hours prior to Medication Therapy Long report time Term Not Anticoagulant, Colitis Cytomegalovirus ([facility]) predniSONE (DELTASONE) 5 Take 1 tablet (5 mg 90 tablet 3 06/29/2021 mg tabletIndications: total) by mouth Transplant Liver ([facility]), daily. Medication Therapy Supervisor Painting Department Not Anticoagulant Spiriva Respimat 2.5 INHALE 2 PUFFS BY 4 g 0 01/09/20 21 07/26/2021 mcg/actuation inhaler MOUTH DAILY sulfamethoxazole-trimeth Take 1 tablet by 14 tablet 0 06/1206/26/2021 oprim (BACTRIM,SEPTRA) mouth daily for 14 400-80 mg per tablet days. Take after dialysis on dialysis days. tacrolimus (PROGRAF) 0.5 Take 2 capsules (1 360 capsule 3 07/16/2021 mg capsuleIndications: mg total) by mouth Transplant Liver ([facility]), 2 (two) times a Medication Therapy Long day. Term Not Anticoagulant UNABLE TO FIND by nasal 0 10/12/2021 (alternating) route 2 (two) times a day. Azelastine 1mg to Sinus Rinse twice daily. [facility] documented as of this encounter Plan of Treatment Upcoming Encounters Date Type Specialty Care Team Description 04/24/2022 Appointment Laboratory Medicine Angélica Granger P.ASky [address] [place] [phone] 04/25/2022 Office Visit Otorhinolaryngology Dex Matta APRN, C.N.P., M.S.N. [address] [place] [phone] 05/08/2022 Appointment Laboratory Medicine Angélica Granger P.A.-C. [address] [place] [phone] 05/08/2022 Clinical Admitting/Central Communication Scheduling 05/10/2022 Appointment Radiology Jeremie Rose M.D. [address] [place] [phone] 05/10/2022 Comprehensive Visit Orthopedic Surgery Warner Graves M.D. [address] [place] [phone] 05/22/2022 Appointment Laboratory Medicine Angélica Granger P.A.-C. [address] [place] [phone] 06/05/2022 Appointment Laboratory Medicine Angélica Granger P.A.-C. [address] [place] [phone] 06/19/2022 Appointment Laboratory Medicine Angélica Granger P.A.-C. [address] [place] [phone] 07/03/2022 Appointment Laboratory Medicine Angélica Granger P.A.-C. [address] [place] [phone] 07/17/2022 Appointment Laboratory Medicine Angélica Granger P.A.-C. [address] [place] [phone] 07/31/2022 Appointment Laboratory Medicine Angélica Granger P.A.-C. [address] [place] [phone] 08/14/2022 Appointment Laboratory Medicine Angélica Granger P.A.-C. [address] [place] [phone] 08/28/2022 Appointment Laboratory Medicine Angélica Granger P.A.-C. [address] [place] [phone] documented as of this encounter Procedures Procedure Name Priority Date/Time Associated Comments Diagnosis US UPPER RAD - Routine 06/21/2021 10:43 Hypertension And Result s for this EXTREMITY (most inpatients AM PROCEDURE MANAGER Chronic Kidney procedure are in BILATERAL and all Disease Stage 5 the results DIALYSIS MAPPING outpatients) (HCC) section. 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) Immunodeficiency (HCC) Transplant Liver (HCC) documented in this encounter Results US Upper Extremity Bilateral Dialysis Mapping (06/21/2021 10:43 AM PROCEDURE MANAGER) Anatomical Region Laterality Modality Upper Extremity, Ultrasound RST LOS, Ultrasound ARZ LOS, Pranav ateral Ultrasound Ultrasound FLA LOS Specimen (Source) Anatomical Collection Method Collection Time Re ceived Time Location / / Volume Laterality 06/21/2021 10:44 AM PROCEDURE MANAGER Impressions 06/21/2021 10:57 AM PROCEDURE MANAGER Upper extremity arteries and veins evaluated for predialysis assessment Narrative 06/21/2021 10:57 AM PROCEDURE MANAGER EXAM: US UPPER EXTREMITY BILATERAL DIALYSIS MAPPING Exam performed with color and spectral D oppler analysis. COMPARISON: None FINDINGS: RIGHT Deep Vein Assessment: Normal. Central Arterial Assessment: Normal. ARTERIAL DIAMETERS Brachial artery: ?? 4.8 mm Radial artery: ?? 2.5 mm heavily calcifi ed artery with areas of at least mild narrowing, peak velocity 93 cm/s Ulnar artery: ?? 1.4 mm Distance from right elbow crease to brac hial artery bifurcation: 2.1cm below. CEPHALIC VEIN Upper humerus: ??5.1 mm Mid humerus: ??4.7 mm Lower humerus: ??4.8 mm Antecubital fossa: ??7.7 mm Upper forearm: ??3.3 mm Mid forearm: ??3.6 mm Wrist: ??3.7 mm BASILIC VEIN Upper humerus: ?? Not present, early fransisco inage into brachial veins Mid humerus: 3.6 mm Lower humerus: 4.0 mm Antecubital fossa: ??4.3 mm Upper forearm: ?? Lies dorsally Mid forearm: Wrist: LEFT Deep Vein Assessment: Normal. Central Arterial Assessment: Normal. ARTERIAL DIAMETERS Brachial artery: ?? 4.7 mm Radial artery: ? 1.8 mm heavily calc ified artery. Ulnar artery: ?? 1.6 mm Distance from left elbow crease to brach ial artery bifurcation: 2.3cm below. CEPHALIC VEIN Upper humerus: ?? 4.6 mm Mid humerus: ??4.1 mm Lower humerus: 3.3 mm Antecubital fossa: ??6.2 mm Upper forearm: ?? 2.9 mm Mid forearm: ??3.2 mm Wrist: ?? Lies dorsally BASILIC VEIN Upper humerus: ??6.7 mm Mid humerus: ??3.7 mm Lower humerus: ?? 2.5 mm Antecubital fossa: ?? 2.2 mm Upper forearm: 1.5 mm Mid forearm: ?? Too small Wrist: Fuentes: ( * ) = too small (<2mm) or not visualiz ed ( X ) = not examined Procedure Note Otoniel Gordon M.D. - 06/21/2021Formatti ng of this note might be different from the original. EXAM: US UPPER EXTREMITY BILATERAL DIALY SIS MAPPING Exam performed with color and spectral D oppler analysis. COMPARISON: None FINDINGS: RIGHT Deep Vein Assessment: Normal. Central Arterial Assessment: Normal. ARTERIAL DIAMETERS Brachial artery: 4.8 mm Radial artery: 2.5 mm heavily calcified artery with areas of at least mild narrowing, peak velocity 93 cm/s Ulnar artery: 1.4 mm Distance from right elbow crease to brac hial artery bifurcation: 2.1cm below. CEPHALIC VEIN Upper humerus: 5.1 mm Mid humerus: 4.7 mm Lower humerus: 4.8 mm Antecubital fossa: 7.7 mm Upper forearm: 3.3 mm Mid forearm: 3.6 mm Wrist: 3.7 mm BASILIC VEIN Upper humerus: Not present, early draina ge into brachial veins Mid humerus: 3.6 mm Lower humerus: 4.0 mm Antecubital fossa: 4.3 mm Upper forearm: Lies dorsally Mid forearm: Wrist: LEFT Deep Vein Assessment: Normal. Central Arterial Assessment: Normal. ARTERIAL DIAMETERS Brachial artery: 4.7 mm Radial artery: 1.8 mm heavily calcified artery. Ulnar artery: 1.6 mm Distance from left elbow crease to brach ial artery bifurcation: 2.3cm below. CEPHALIC VEIN Upper humerus: 4.6 mm Mid humerus: 4.1 mm Lower humerus: 3.3 mm Antecubital fossa: 6.2 mm Upper forearm: 2.9 mm Mid forearm: 3.2 mm Wrist: Lies dorsally BASILIC VEIN Upper humerus: 6.7 mm Mid humerus: 3.7 mm Lower humerus: 2.5 mm Antecubital fossa: 2.2 mm Upper forearm: 1.5 mm Mid forearm: Too small Wrist: Fuentes: ( * ) = too small (<2mm) or not visualiz ed ( X ) = not examined IMPRESSION: Upper extremity arteries and veins evalu ated for predialysis assessment Otoniel Norwood Jr., D.O. IMG US PROCEDURES documented in this encounter Visit Diagnoses Diagnosis Hypertension And Chronic Kidney Disease Stage 5 (HCC) Chronic Failure Renal End Stage Renal Di sease Dialysis Dependent (HCC) Immunodeficiency (HCC) Transplant Liver (HCC) documented in this encounter Additional Health Concerns Assessment Noted Time PHQ-9 Depression Total Score: 4 11/28/2020 10:17 AM CD T documented as of this encounter Care Teams Care Director Relationship Specialty Start Date End Date Elsewhere, Pcp PCP - General Family Medicine 07/29/17 [facility] - Laboratory Medicine 04/12/[address] [address] documented as of this encounter
--- OUTSIDE RECORDS SUMMARY | 2022-04-13 12:10 | XMS_ITS | Encounter Summary ---
:1955 Author Organization [facility] Address [address] [place] [address] Care Team Providers Name Role Phone Elsewhere, Pcp Primary Care Provider Unavailable Reason for Visit Reason Comments Treatment Outpatient (Routine) - Authorized Specialty Diagnoses / Procedures Referred By Contact Refer red To Contact Diagnoses Colitis Cytomegalovirus (HCC) Transplant Liver (HCC) Otoniel Linares M.D. 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 Transplant Liver (HCC); [place], [place] [address] [phone] Social History Tobacco Use Types Packs/Day Years [...] or relatives? How often do you attend zoroastrian or More than 4 times per year 12/15/2021 rastafari services? 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 [address] [place] [phone] 05/08/2022 Appointment Laboratory Medicine Angélica Granger P.A.-CDemetrius [address] [place] [phone] 05/08/2022 Clinical Admitting/Central Communication Scheduling 05/10/2022 Appointment Radiology Jeremie Rose M.D. [address] [place] [phone] 05/10/2022 Comprehensive Visit Orthopedic Surgery Warner Graves M.D. [address] [place] [phone] 05/22/2022 Appointment Laboratory Medicine Angélica Granger P.A.-C. [address] [place] [phone] 06/05/2022 Appointment Laboratory Medicine Angélica Granger P.A.-C. [address] [place] [phone] 06/19/2022 Appointment Laboratory Medicine Angélica Granger P.A.-C. [address] [place] [phone] 07/03/2022 Appointment Laboratory Medicine Angélica Granger P.A.-C. [address] [place] [phone] 07/17/2022 Appointment Laboratory Medicine Angélica Granger P.A.-C. [address] [place] [phone] 07/31/2022 Appointment Laboratory Medicine Angélica Granger P.A.-C. [address] [place] [phone] 08/14/2022 Appointment Laboratory Medicine Angélica Granger P.A.-C. [address] [place] [phone] 08/28/2022 Appointment Laboratory Medicine Angélica Granger P.A.-C. [address] [place] [phone] documented as of this encounter Visit Diagnoses Diagnosis Colitis Cytomegalovirus (HCC) - Primary Transplant Liver (HCC) Anemia documented in this encounter Administered Medications Inactive Administered Medications - up to 3 most recent administrations Medication Order MAR Action Action Date Dose Rate Site sodium chloride 0.9 % injection 10 Given 07/02/2021 10:40 AM UNIT ASSISTANT 10 mL mL 10 mL, intra-catheter, As needed, line care, Starting on 07/02/21 at 1050, Prior to blood sampling, post blood transfusion, or post blood sampling. documented in this encounter Additional Health Concerns Assessment Noted Time PHQ-9 Depression Total Score: 4 11/28/2020 10:17 AM CD T documented as of this encounter Care Teams Pediatric Surgeon Relationship Specialty Start Date End Date Elsewhere, Pcp PCP - General Family Medicine 07/29/17 [facility] - Laboratory Medicine 04/12/[address] [address] documented as of this encounter
--- OUTSIDE RECORDS SUMMARY | 2022-04-13 12:10 | XMS_ITS | Encounter Summary ---
:1955 Author Organization [facility] Address [address] [place] [address] Care Team Providers Name Role Phone Elsewhere, Pcp Primary Care Provider Unavailable Reason for Referral MRI/CAT/PET Scan (Routine) - Closed Specialty Diagnoses / Procedures Referred By Contact Refer red To Contact Radiology Diagnoses Rhinosinusitis Chronic Toro Pena M.D. [facility] Procedures CT Sinuses without IV Contrast [address] [place] [phone] Referral ID Status Reason Start Date Expiration Date Visits Requ ested Visits Authorized [id number] Closed 06/26/2021 06/26/2022 1 1 POLLUTION INSPECTOR Reason for Visit MRI/CAT/PET Scan (Routine) - Closed Specialty Diagnoses / Procedures Referred By Contact Refer red To Contact Radiology Diagnoses Rhinosinusitis Chronic Toro Pena M.D. [facility] Procedures CT Sinuses without IV Contrast [address] [place] [phone] Referral ID Status Reason Start Date Expiration Date Visits Requ ested Visits Authorized [id number] Closed 06/26/2021 06/26/2022 1 1 Encounter Details Date Type Department Care Team Description 07/03/2021 Hospital Encounter Department of Toro Penaosi nusitis Chronic Radiology, Russel Galvan M.D. 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 ganciclovir 90 mg in D5W Infuse 90 [...] hr tablet mg total) by mouth daily. NIFEdipine XL (PROCARDIA TAKE 3 TABLETS(90 270 [...] score 7-10 of 10 Indication: Acute Pain. polyethylene Drink 1st portion 4000 mL 0 06/14/202107/10 glycol-electrolytes of prep at 6 PM the (GoLYTELY) evening before. 2nd 236-22.74-6.74 -5.86 portion must be gram started 3 hours solutionIndications: before and finished Transplant Liver ([facility]), 2 hours prior to Medication Therapy Long report time Term Not Anticoagulant, Colitis Cytomegalovirus (HCC) predniSONE (DELTASONE) 5 TAKE 1 TABLET(5 MG) 90 tablet 3 10/16/2021 mg tabletIndications: BY MOUTH DAILY Transplant Liver ([facility]), Medication Therapy Clinical Data Management Manager Not Anticoagulant Spiriva Respimat 2.5 INHALE 2 PUFFS BY 4 g 0 01/09/20 21 07/26/2021 mcg/actuation inhaler MOUTH DAILY tacrolimus (PROGRAF) 0.5 Take 2 capsules (1 360 capsule 3 07/16/2021 mg capsuleIndications: mg total) by mouth Transplant Liver ([facility]), 2 (two) times a Medication Therapy Long day. Term Not Anticoagulant UNABLE TO FIND by nasal 0 10/12/2021 (alternating) route 2 (two) times a day. Azelastine 1mg to Sinus Rinse twice daily. [facility] documented as 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 [address] [place] [phone] 04/25/2022 Office Visit Otorhinolaryngology Dex Matta APRN, C.N.P., M.S.N. [address] [place] [phone] 05/08/2022 Appointment Laboratory Medicine Angélica Granger P.A.-CDemetrius [address] [place] [phone] 05/08/2022 Clinical Admitting/Central Communication Scheduling 05/10/2022 Appointment Radiology Jeremie Rose M.D. [address] [place] [phone] 05/10/2022 Comprehensive Visit Orthopedic Surgery Warner Graves M.D. [address] [place] [phone] 05/22/2022 Appointment Laboratory Medicine Angélica Granger P.A.-C. [address] [place] [phone] 06/05/2022 Appointment Laboratory Medicine Angélica Granger P.A.-C. [address] [place] [phone] 06/19/2022 Appointment Laboratory Medicine Angélica Granger P.A.-C. [address] [place] [phone] 07/03/2022 Appointment Laboratory Medicine Angélica Granger P.A.-C. [address] [place] [phone] 07/17/2022 Appointment Laboratory Medicine Angélica Granger P.A.-C. [address] [place] [phone] 07/31/2022 Appointment Laboratory Medicine Angélica Granger P.A.-C. [address] [place] [phone] 08/14/2022 Appointment Laboratory Medicine Angélica Granger P.A.-C. [address] [place] [phone] 08/28/2022 Appointment Laboratory Medicine Emiliejeri Angélica Edmundo Stern [address] [place] [phone] documented as of this encounter Procedures Procedure Name Priority Date/Time Associated Diagnosis Comme nts CT SINUSES RAD - Routine 07/03/2021 7:29 Rhinosinusitis Results f or WITHOUT IV (most inpatients AM AIR POLLUTION INSPECTOR Chronic this proced ure CONTRAST and all are in the outpatients) results section. documented in this encounter Results CT Sinuses without IV Contrast (07/03/2021 7:29 AM AIR POLLUTION INSPECTOR) Anatomical Region Laterality Modality Head, Neuroradiology RST LOS, N/A Computed T omography, Computed Neuroradiology ARZ LOS, Neuroradiology T omography FLA LOS Specimen (Source) Anatomical Collection Method Collection Time Re ceived Time Location / / Volume Laterality 07/03/2021 8:43 AM AIR POLLUTION INSPECTOR Impressions 07/03/2021 8:48 AM AIR POLLUTION INSPECTOR Progressive paranasal sinus inflammatory changes particularly within the right maxillary antrum and ethmoid a ir cells bilaterally with near complete opacification since 10/12/2020. Narrative 07/03/2021 8:48 AM AIR POLLUTION INSPECTOR EXAM: CT SINUSES WITHOUT IV CONTRAST COMPARISON: Sinus CT 10/12/2020 FINDINGS: . New complete to near complet e opacification of the right maxillary antrum new complete to near complete opa cification of ethmoid air cells bilaterally (greater on the left when co mpared to 10/12/2020. Mild membrane thickening within the left maxillary ant rum with frothy material has progressed. Mild membrane thickening within the fron salome sinuses looks about the same. Minimal membrane thickening within the s phenoid sinus on the left is new. Thickening of the lanier of paranasal sin uses thought due to chronic osteitis looks unchanged. Unchanged postoperative changes plate and screw fixation across both zygoma, inferior orbital rims, ante rior maxilla, and nasal bones. Deviation nasal septum convex to the right. Visual ized brain looks normal. Procedure Note Cas Garcia M.D. - 07/03/2021Formatt ing of this note might be different from the original. EXAM: CT SINUSES WITHOUT IV CONTRAST COMPARISON: Sinus CT 10/12/2020 FINDINGS: . New complete to near complet e opacification of the right maxillary antrum new complete to near complete opa cification of ethmoid air cells bilaterally (greater on the left when co mpared to 10/12/2020. Mild membrane thickening within the left maxillary ant rum with frothy material has progressed. Mild membrane thickening within the fron salome sinuses looks about the same. Minimal membrane thickening within the s phenoid sinus on the left is new. Thickening of the lanier of paranasal sin uses thought due to chronic osteitis looks unchanged. Unchanged postoperative changes plate and screw fixation across both zygoma, inferior orbital rims, ante rior maxilla, and nasal bones. Deviation nasal septum convex to the right. Visual ized brain looks normal. IMPRESSION: Progressive paranasal sinus inflammatory changes particularly within the right maxillary antrum and ethmoid a ir cells bilaterally with near complete opacification since 10/12/2020. Toro Pena M.D. IMG CT PROCEDURES documented in this encounter Visit Diagnoses Diagnosis Rhinosinusitis Chronic documented in this encounter Additional Health Concerns Assessment Noted Time PHQ-9 Depression Total Score: 4 11/28/2020 10:17 AM CD T documented as of this encounter Care Teams Motor Bus Driver Relationship Specialty Start Date End Date Elsewhere, Pcp PCP - General Family Medicine 07/29/17 [facility] - Laboratory Medicine 04/12/20 [place] [phone] documented as of this encounter
--- OUTSIDE RECORDS SUMMARY | 2022-04-13 12:10 | XMS_ITS | Encounter Summary ---
:1955 Author Organization [facility] Address [address] [place] [phone] Care Team Providers Name Role Phone Elsewhere, Pcp Primary Care Provider Unavailable Reason for Referral Outpatient (Routine) - Closed Specialty Diagnoses / Procedures Referred By Contact Refer red To Contact Otorhinolaryngology Toro Pena M.D . [address] [phone] Referral ID Status Reason Start Date Expiration Date Visits Requ ested Visits Authorized [id number] Closed 07/03/2021 07/03/2022 1 1 Scheduling Instructions 1 mo post-op utpatient (Routine) - Closed Specialty Diagnoses / Procedures Referred By Contact Refer red To Contact Otorhinolaryngology Toro Pena M.D . [address] [phone] Referral ID Status Reason Start Date Expiration Date Visits Requ ested Visits Authorized [id number] Closed 07/03/2021 07/03/2022 1 1 Scheduling Instructions 1 wk post-op COURSE STARTER Reason for Visit Outpatient (Routine) - Closed Specialty Diagnoses / Procedures Referred By Contact Refer red To Contact Otorhinolaryngology Toro Pena M.D . [address] [phone] Referral ID Status Reason Start Date Expiration Date Visits Requ ested Visits Authorized [id number] Closed 06/26/2021 06/26/2022 1 1 Encounter Details Date Type Department Care Team Description 07/03/2021 Office Visit Department of Toro Pena Rhinosinusiti s Chronic (Primary Dx); Otorhinolaryngology in [place] Galvan Congestion Nasal; [place], [place] [address] [facility] Drip Post Nasal; [address] [place], [place] Obstruction Nasal; [place] [phone] Preoperative Exam; [phone] Chronic Kidney Disease Stage 4 Glomerular Filtration Rate 15-29 (HCC); (Work) Transplant Liver (HCC) Social History Tobacco Use Types Packs/Day Years [...] Date Recorded Male 05/16/2020 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 - 07/03/2021 2:00 PM CST Images from the original note were not included. CHIEF COMPLAINT / REASON FOR VISIT Bruce Singh is a 65 y.o. male who presents for evaluation of post nasal drainage. HISTORY OF PRESENT ILLNESS Mr. 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 He presents today for re-evaluation of chronic rhinosinusitis, postnasal drainage and chronic cough. We have been attempting to treat him with medical therapy and avoid surgery given his significant medical comorbidities and transplant history. He has utilized topical Flonase, saline rinses, budesonide rinses and Xylitol. He has had multiple courses of antibiotics and recently finished a 10 day course of antibiotics as well as prednisone. This temporarily improved his symptoms but they have returnedin full force. He has undergone an updated sinus CT scan which demonstrates worsen progression of his disease. Thisis somewhat worse on the right side of the left side but is present bilaterally. His snot 22 score today is 51. He is primarily bothered by thick drainage, postnasal drainage and cough. He also reports significant bilateral nasal obstruction. The following portions of the patient's history were reviewed and updated as appropriate: allergies,current medications, family history, medical history, social history, surgical history and problem list. Social History Tobacco Use Smoking status: Never Smoker Smokeless tobacco: Never Used REVIEW OF SYSTEMS Skin: Positive for change in mole or skin spot. ENT: Positive for sinus congestion. Respiratory: Positive for coughing up mucus (phlegm). Cardiovascular: Positive for swelling in the legs or feet. Hematologic: Positive for bruises or bleeds easily. The following systems were negative: Constitutional, Eyes, GI, , Musculoskeletal, Neuro, Psych PHYSICAL EXAM: General: Patient doing well overall and is in no apparent distress. Psych: Pleasant affect, and answers questions appropriately. Head & Face: Symmetric facial movements Eyes: Pupils equal, round, reactive. Extraoccular movements intact without gaze restrictions or nystagmus. No epiphora. Ears: There is a small perforation in the right TM. The left TM appears normal. Nose: Anterior rhinoscopy revealed straight septum with no drainage or polyps. More posterior areas of the nasal cavity could not be completely examined. Oral Cavity/Oropharynx: Without lesions or masses to visual exam. Neck: Supple without lymphadenopathy. Lungs: Non-labored, and without evidence of stridor. Cardiac: Pulses are strong, well-perfused. Extremities: Without gross evidence of clubbing, cyanosis, or edema. Neuro: Cranial nerves II-XII grossly intact; Intact facial movements. PROCEDURE NOTE Procedure: Rigid nasal endoscopy Pre-procedure diagnosis/Indication for procedure: To evaluate areas not seen on anterior rhinoscopy Anesthesia: 0.5% phenylephrine & 2% lidocaine topical spray Description: A 30 degree 4mm rigid nasal endoscope was used to examine the left and right nasal cavities. The nasal valve areas were examined for abnormalities or collapse. The inferior and middle turbinates were evaluated. The middle and superior meati, and the sphenoethmoid recesses were examined and inspected for mucopurulence and polyps. Once the endoscope was withdrawn, the patient was noted to have tolerated the procedure well without complications and was returned to ambulatory status. Findings: Septum midline. No pus/purulence/polyps bilaterally. [place] Endoscopic Scoring System RIGHT LEFT POLYPS (0, 1, 2) 0 0 EDEMA (0, 1, 2) 1 1 DISCHARGE (0, 1, 2) 0 0 SCARRING (0, 1, 2) 0 0 CRUSTING (0, 1, 2) 0 0 TOTAL 1 1 Olfactory Cleft Score RIGHT LEFT POLYPS (0, 1, 2) 0 0 EDEMA (0, 1, 2) 0 0 DISCHARGE (0, 1, 2) 0 0 SCARRING (0, 1, 2) 0 0 CRUSTING (0, 1, 2) 0 0 TOTAL 0 0 Assessment: #1 Rhinosinusitis Chronic #2 Cough #3 Post Nasal Drip and nasal airway obstruction with bilateral inferior turbinate hypertrophy #4 Status post liver transplant #5 Chronic kidney disease on dialysis therapy Plan: It was a pleasure to see this patient back in follow-up today. I reviewed his ongoing symptoms as well as worsened sinus CT scan. He is quite symptomatic in regard to his chronic postnasal drainage, chronic thick purulent drainage and cough. We have trialed multiple courses of systemic and topical medical therapies in an effort to avoid endoscopic sinus surgery, given his medical comorbidities. However, he remains symptomatic and has had worsened disease course despite this. In light of this, think the next step to consider would be bilateral comprehensive endoscopic sinus surgery and bilateral inferior turbinate reduction as well as possible septoplasty. He wishes to pursue this. He has received a preoperative medical clearance by his nephrology team approximately 2 weeks ago for an upcoming fistula. We also placed a preoperative medical clearance from the anesthesia team to review his chart and determine if any additional workup for considerations are needed given his comorbidities and dialysis. A discussion was held regarding the potential risks, benefits and alternatives to surgery. The role of surgery in the patients overall care was also described including the likely need for continued medial therapy as well as post-operative debridements. In particular, the patient was counseled regarding the potential for surgical complications including bleeding, infection, pain, incomplete resolution of symptoms, need for revision procedures, cerebrospinal fluid leak/meningitis, orbital injury withresultant vision problems, bleeding/hematoma behind the eye, injury to the nasolacrimal duct, numbness of teeth/face and alteration or loss of sense of smell. We also informed the patient of the potential for overlapping surgery. All questions pertaining to the procedure and these risks were answered and the patient agreed to proceed. A handout regarding surgical complications was also provided. As per the current recommendation in this COVID surge, we will delay listing this case for approximately 60 weeks. If at all possible, he would like to pursue surgery sooner we will alejandro this down in case the limitations are listed earlier. Toro Pena MD [facility] Department of Otorhinolaryngology - Head & Neck Surgery COURSE STARTER documented in this encounter Plan of Treatment Upcoming Encounters Date Type Specialty Care Team Description 04/24/2022 Appointment Laboratory Medicine Angélica Granger P.A.-C. [address] [place] [phone] 04/25/2022 Office Visit Otorhinolaryngology Dex Matta APRN, C.N.P., M.S.N. [address] [place] [phone] 05/08/2022 Appointment Laboratory Medicine Angélica Granger P.A.-C. [address] [place] [phone] 05/08/2022 Clinical Admitting/Central Communication Scheduling 05/10/2022 Appointment Radiology Jeremie Rose M.D. [address] [place] [phone] 05/10/2022 Comprehensive Visit Orthopedic Surgery Warner Graves M.D. [address] [place] [phone] 05/22/2022 Appointment Laboratory Medicine Angélica Granger P.A.-C. [address] [place] [phone] 06/05/2022 Appointment Laboratory Medicine Angélica Granger P.A.-C. [address] [place] [phone] 06/19/2022 Appointment Laboratory Medicine Angélica Granger P.A.-C. [address] [place] [phone] 07/03/2022 Appointment Laboratory Medicine Angélica Granger P.A.-C. [address] [place] [phone] 07/17/2022 Appointment Laboratory Medicine Angélica Granger P.A.-C. [address] [place] [phone] 07/31/2022 Appointment Laboratory Medicine Angélica Granger P.A.-C. [address] [place] [phone] 08/14/2022 Appointment Laboratory Medicine Angélica Granger P.A.-C. [address] [place] [phone] 08/28/2022 Appointment Laboratory Medicine Angélica Granger P.A.-C. [address] [place] [phone] Scheduled Referrals Name Type Priority Associated Order Schedule Diagnoses Otorhinolaryngology Post Op Outpatient Routine Expected: (clinic) Referral 08/28/2021 (Approximate), Expires: 10/01/2022 Otorhinolaryngology office Outpatient Routine E xpected: visit (clinic) Referral 09/25/2021 (Approximate), Expires: 10/01/2022 documented as of this encounter Visit Diagnoses Diagnosis Rhinosinusitis Chronic - Primary Congestion Nasal Drip Post Nasal Obstruction Nasal Preoperative Exam Chronic Kidney Disease Stage 4 Glomerula r Filtration Rate 15-29 (HCC) Transplant Liver (HCC) documented in this encounter Additional Health Concerns Assessment Noted Time PHQ-9 Depression Total Score: 4 11/28/2020 10:17 AM CD T documented as of this encounter Care Teams Associate Faculty Relationship Specialty Start Date End Date Elsewhere, Pcp PCP - General Family Medicine 07/29/17 [facility] - Laboratory Medicine 04/12/[address] [address] documented as of this encounter
--- OUTSIDE RECORDS SUMMARY | 2022-04-13 12:10 | XMS_ITS | Encounter Summary ---
:1955 Author Organization [facility] Address [address] [place] [address] Care Team Providers Name Role Phone Elsewhere, Pcp Primary Care Provider Unavailable Encounter Details Date Type Department Care Team Description 06/21/2021 Orders Only Division of Nephrology Dario Shafer F ailure Renal End and Hypertension in M.D., Ph.D. 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 [address] [place] [phone] 04/25/2022 Office Visit Otorhinolaryngology Dex Matta APRN, C.N.P., M.S.N. [address] [place] [phone] 05/08/2022 Appointment Laboratory Medicine Angélica Granger, P.A.-C. [address] [place] [phone] 05/08/2022 Clinical Admitting/Central Communication Scheduling 05/10/2022 Appointment Radiology Jeremie Rose M.D. [address] [place] [phone] 05/10/2022 Comprehensive Visit Orthopedic Surgery Warner Graves M.D. [address] [place] [phone] 05/22/2022 Appointment Laboratory Medicine GunAngélica wilcox P.A.-C. [address] [place] [phone] 06/05/2022 Appointment Laboratory Medicine Angélica Granger P.A.-C. [address] [place] [phone] 06/19/2022 Appointment Laboratory Medicine Angélica Granger P.A.-C. [address] [place] [phone] 07/03/2022 Appointment Laboratory Medicine Angélica Granger P.A.-C. [address] [place] [phone] 07/17/2022 Appointment Laboratory Medicine Angélica Granger P.A.-C. [address] [place] [phone] 07/31/2022 Appointment Laboratory Medicine Angélica Granger P.A.-C. [address] [place] [phone] 08/14/2022 Appointment Laboratory Medicine Angélica Granger P.A.-C. [address] [place] [address] [phone] 08/28/2022 Appointment Laboratory Medicine Angélica Granger P.A.-C. [address] [place] [phone] documented as of this encounter Results SARS Coronavirus-2 RNA, V Asymptomatic (07/21/2021 9:21 AM SALESPERSON FURS) [facility] Method Time Signature SARS-CoV-2 Swab, 07/21/2021 MKTO Specimen Nasopharynx 9:41 PM SALESPERSON FURS Source SARS CoV-2 Undetected Undetected 07/21/2021 PA RNA, TMA 9:41 PM SALESPERSON FURS Comment: SARS-CoV-2 RNA absent. This result does not rule out COVID-19 in the patient, as the sensitivity of the test depends o n the timing of the specimen collection and the quality of the specim en. Result should be correlated with patient's history and clinical presentat ion. ----ADDITIONAL INFORMATION---- This molecular amplification test was pe rformed using the Aptima SARS-CoV-2 assay ([employer] on the [employer] Apps tem under emergency use authorization (EUA) by the U.S. Food and Drug Administ ration. Fact sheets for this EUA assay can be fo und at the following links: For Healthcare Providers: https://www.Favoe a.gov/media/322875/download For Patients: https://www.fda.gov/media/ 111574/download Specimen Anatomical Collection Method Collection Time Receive d Time (Source) Location / / Volume Laterality Varies 07/21/2021 9:21 AM 4:38 (Nasopharynx) SALESPERSON FURS PM SALESPERSON FURS Dario Shafer M.D., Ph.D. LAB MICROBIOLOGY - GENERAL ORDERABLES Performing Organization Address City/State/ZIP Code Phon e Number [facility]- [address] [place] [address] [place] [address] System in [address] documented in this encounter Visit Diagnoses Diagnosis Failure Renal End Stage (HCC) - Primary documented in this encounter Additional Health Concerns Assessment Noted Time PHQ-9 Depression Total Score: 4 11/28/2020 10:17 AM CD T documented as of this encounter Care Teams Adzing And Boring Machine Helper Relationship Specialty Start Date End Date Elsewhere, Pcp PCP - General Family Medicine 07/29/17 [facility] - Laboratory Medicine 04/12/20 [place] [address] documented as of this encounter
--- OUTSIDE RECORDS SUMMARY | 2022-04-13 12:10 | XMS_ITS | Encounter Summary ---
:1955 Author Organization [facility] Address [address] [place] [address] Care Team Providers Name Role Phone Elsewhere, Pcp Primary Care Provider Unavailable Reason for Visit Reason Comments Communication Encounter Details Date Type Department Care Team Description 06/19/2021 Clinical Communication Irena Gamez [facility] Communication Center for R, R.N. 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 I mentioned to him the appts that were being requested and the time frame of 07/09. Pt said he was under the impression the PICC line was going to be removed later than that. Please let us know for scheduling. Shadia Rasheed ULATOR documented in this encounter Plan of Treatment Upcoming Encounters Date Type Specialty Care Team Description 04/24/2022 Appointment Laboratory Medicine Angélica Granger, SaeedADmeetrius-CDemetrius [address] [place] [phone] 04/25/2022 Office Visit Otorhinolaryngology Dex Matta, RAMONA, C.N.P., M.S.N. [address] [place] [phone] 05/08/2022 Appointment Laboratory Medicine Angélica Granger P.A.-C. [address] [place] [phone] 05/08/2022 Clinical Admitting/Central Communication Scheduling 05/10/2022 Appointment Radiology eJremie Rose M.D. [address] [place] [phone] 05/10/2022 Comprehensive Visit Orthopedic Surgery Warner Graves M.D. [address] [place] [phone] 05/22/2022 Appointment Laboratory Medicine Angélica Granger P.A.-C. [address] [place] [phone] 06/05/2022 Appointment Laboratory Medicine Angélica Granger P.A.-C. [address] [place] [phone] 06/19/2022 Appointment Laboratory Medicine Angélica Granger P.A.-C. [address] [place] [phone] 07/03/2022 Appointment Laboratory Medicine Angélica Granger P.A.-C. [address] [place] [phone] 07/17/2022 Appointment Laboratory Medicine Angélica Granger P.A.-C. [address] [place] [phone] 07/31/2022 Appointment Laboratory Medicine Angélica Granger P.A.-C. [address] [place] [phone] 08/14/2022 Appointment Laboratory Medicine Angélica Granger P.A.-C. [address] [place] [phone] 08/28/2022 Appointment Laboratory Medicine Angélica Granger P.A.-C. [address] [place] [phone] documented as of this encounter Visit Diagnoses Not on filedocumented in this encounter Additional Health Concerns Assessment Noted Time PHQ-9 Depression Total Score: 4 11/28/2020 10:17 AM CD T documented as of this encounter Care Teams Rotary Driller Prospecting Relationship Specialty Start Date End Date Elsewhere, Pcp PCP - General Family Medicine 07/29/17 [facility] - Laboratory Medicine 04/12/[address] [address] documented as of this encounter
--- OUTSIDE RECORDS SUMMARY | 2022-04-13 12:10 | XMS_ITS | Encounter Summary ---
:1955 Author Organization [facility] Address [address] [place] [address] Care Team Providers Name Role Phone Elsewhere, Pcp Primary Care Provider Unavailable Encounter Details Date Type Department Care Team Description 06/19/2021 Clinical Communication [facility] for Leena, MMaury Transplantation and [address] [place] [address] Clinical [facility] in [place], [place] [address] [place] [address] [place] [address] (Work) [phone] Social History Tobacco Use Types Packs/Day Years [...] at Date Recorded Male 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 [address] [place] [phone] 04/25/2022 Office Visit Otorhinolaryngology Dex Matta APRN, C.N.P., M.S.N. [address] [place] [phone] 05/08/2022 Appointment Laboratory Medicine Angéilca Granger P.A.-C. [address] [place] [phone] 05/08/2022 Clinical Admitting/Central Communication Scheduling 05/10/2022 Appointment Radiology Jeremie Rose M.D. [address] [place] [phone] 05/10/2022 Comprehensive Visit Orthopedic Surgery Warner Graves M.D. [address] [place] [phone] 05/22/2022 Appointment Laboratory Medicine Angélica Granger P.A.-C. [address] [place] [phone] 06/05/2022 Appointment Laboratory Medicine Angélica Granger P.A.-C. [address] [place] [phone] 06/19/2022 Appointment Laboratory Medicine Angélica Granger P.A.-C. [address] [place] [phone] 07/03/2022 Appointment Laboratory Medicine Angélica Granger P.A.-C. [address] [place] [phone] 07/17/2022 Appointment Laboratory Medicine Angélica Granger P.A.-C. [address] [place] [phone] 07/31/2022 Appointment Laboratory Medicine Angélica Granger P.A.-C. [address] [place] [phone] 08/14/2022 Appointment Laboratory Medicine Angélica Granger P.A.-C. [address] [place] [address] [phone] 08/28/2022 Appointment Laboratory Medicine Angélica Granger P.A.-C. [address] [place] [phone] documented as of this encounter Visit Diagnoses Not on filedocumented in this encounter Additional Health Concerns Assessment Noted Time PHQ-9 Depression Total Score: 4 11/28/2020 10:17 AM CD T documented as of this encounter Care Teams Woodyard Operator Relationship Specialty Start Date End Date Elsewhere, Pcp PCP - General Family Medicine 07/29/17 [facility] - Laboratory Medicine 04/12/[address] [address] documented as of this encounter
--- OUTSIDE RECORDS SUMMARY | 2022-04-13 12:10 | XMS_ITS | Encounter Summary ---
:1955 Author Organization [facility] Address [address] [place] [address] Care Team Providers Name Role Phone Elsewhere, Pcp Primary Care Provider Unavailable Reason for Visit Reason Comments Med Refill Encounter Details Date Type Department Care Team Description 06/29/2021 Refill [facility] for Yusuf Gutierrez, Med Refill Transplantation and Clinical M.D ., M.P.H. Regeneration in [place] [address] 1 [place] [address] [place] [address] [place] [address] [phone] Social History Tobacco Use Types Packs/Day Years [...] or relatives? How often do you attend restorationism or More than 4 times per year 12/15/2021 voodoo services? 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 [address] [place] [phone] 04/25/2022 Office Visit Otorhinolaryngology Dex Matta, RAMONA, C.N.P., M.S.N. [address] [place] [phone] 05/08/2022 Appointment Laboratory Medicine Angélica Granger, P.A.-C. [address] [place] [phone] 05/08/2022 Clinical Admitting/Central Communication Scheduling 05/10/2022 Appointment Radiology Jeremie Rose M.D. [address] [place] [address] [phone] 05/10/2022 Comprehensive Visit Orthopedic Surgery Warner Graves M.D. [address] [place] [phone] 05/22/2022 Appointment Laboratory Medicine Angélica Granger P.A.-C. [address] [place] [phone] 06/05/2022 Appointment Laboratory Medicine Angélica Granger P.A.-C. [address] [place] [phone] 06/19/2022 Appointment Laboratory Medicine Angélica Granger P.A.-C. [address] [place] [phone] 07/03/2022 Appointment Laboratory Medicine Angélica Granger P.A.-C. [address] [place] [phone] 07/17/2022 Appointment Laboratory Angélica Royal P.A.-C. [address] [place] [phone] 07/31/2022 Appointment Laboratory Angélica Royal P.A.-C. [address] [place] [phone] 08/14/2022 Appointment Laboratory Angélica Royal P.A.-C. [address] [place] [phone] 08/28/2022 Appointment Laboratory Angélica Royal P.A.-C. [address] [place] [phone] documented as of this encounter Visit Diagnoses Diagnosis Transplant Liver (HCC) Medication Therapy Senior Mobile Web Developer Not Anticoa gulant documented in this encounter Additional Health Concerns Assessment Noted Time PHQ-9 Depression Total Score: 4 11/28/2020 10:17 AM CD T documented as of this encounter Care Teams Barrel Rifler Relationship Specialty Start Date End Date Elsewhere, Pcp PCP - General Family Medicine 07/29/17 [facility] - Laboratory Medicine 04/12/20 [place] [address] documented as of this encounter
--- OUTSIDE RECORDS SUMMARY | 2022-04-13 12:10 | XMS_ITS | Encounter Summary ---
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 [address] [place] [phone] 04/25/2022 Office Visit Otorhinolaryngology Dex Matta APRN, C.N.P., M.S.N. [address] [place] [phone] 05/08/2022 Appointment Laboratory Medicine Angélica Granger P.A.-CDemetrius [address] [place] [phone] 05/08/2022 Clinical Admitting/Central Communication Scheduling 05/10/2022 Appointment Radiology Jeremie Rose M.D. [address] [place] [phone] 05/10/2022 Comprehensive Visit Orthopedic Surgery Warner Graves M.D. [address] [place] [phone] 05/22/2022 Appointment Laboratory Medicine Angélica Granger P.A.-C. [address] [place] [phone] 06/05/2022 Appointment Laboratory Medicine Angélica Granger P.A.-C. [address] [place] [phone] 06/19/2022 Appointment Laboratory Medicine Angélica Granger P.A.-C. [address] [place] [phone] 07/03/2022 Appointment Laboratory Medicine Angélica Granger P.A.-C. [address] [place] [phone] 07/17/2022 Appointment Laboratory Medicine Angélica Granger P.A.-C. [address] [place] [phone] 07/31/2022 Appointment Laboratory Medicine Angélica Granger P.A.-C. [address] [place] [phone] 08/14/2022 Appointment Laboratory Medicine Angélica Granger P.A.-C. [address] [place] [address] [phone] 08/28/2022 Appointment Laboratory Medicine Angélica Granger P.A.-C. [address] [place] [phone] documented as of this encounter Visit Diagnoses Not on filedocumented in this encounter Additional Health Concerns Assessment Noted Time PHQ-9 Depression Total Score: 4 11/28/2020 10:17 AM CD T documented as of this encounter Care Teams Trap Operator Relationship Specialty Start Date End Date Elsewhere, Pcp PCP - General Family Medicine 07/29/17 [facility] - Laboratory Medicine 04/12/[address] [address] documented as of this encounter
--- OUTSIDE RECORDS SUMMARY | 2022-04-13 12:10 | XMS_ITS | Encounter Summary ---
:1955 Author Organization [facility] Address [address] [place] [address] Care Team Providers Name Role Phone Elsewhere, Pcp Primary Care Provider Unavailable Reason for Visit Outpatient (Routine) - Closed Specialty Diagnoses / Procedures Referred By Contact Refer red To Contact Nephrology and Diagnoses Hypertension And Chronic Kidney Disease Stage 5 (HCC) 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) Immunodeficiency (HCC) Transplant Liver (HCC) Otoniel Norwood [facility] Hypertension / Dialysis Bashir Rees.ODemetrius 200 [place] [address] Referral ID Status Reason Start Date Expiration Date Visits Requ ested Visits Authorized [id number] Closed 06/04/2021 06/04/2022 1 1 Encounter Details Date Type Department Care Team Description 06/21/2021 Comprehensive Visit Division of Juanita Norwood Jr., D.ODemetrius [address] [place] [phone] Hypertension And Chronic Kidney Disease Stage 5 (HCC); Vascular and Dario Shafer M.D., Ph.D. 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 - 06/21/2021 1:20 PM CST Patient is a 65-year-old male with end-stage renal disease who is currently on hemodialysis through a right neck catheter. Patient is here for chronic dialysis access. Patient has undergone upper extremity mapping which demonstrates an excellent cephalic vein in the right arm for brachiocephalic arteriovenous fistula creation. Patient is left handed so would prefer the fistula on the right side. Patient is scheduled for surgery on July here [facility] under monitored anesthesia care. Patient understands the need for COVID-19 testing prior to surgery; consent was obtained today. UER SHADER documented in this encounter Plan of Treatment Upcoming Encounters Date Type Specialty Care Team Description 04/24/2022 Appointment Laboratory Medicine Angélica Granger P.A.-C. [address] [place] [phone] 04/25/2022 Office Visit Otorhinolaryngology Dex Matta, RAMONA, C.N.P., M.S.N. [address] [place] [phone] 05/08/2022 Appointment Laboratory Medicine Angélica Granger P.A.-C. [address] [place] [phone] 05/08/2022 Clinical Admitting/Central Communication Scheduling 05/10/2022 Appointment Radiology Jeremie Rose M.D. [address] [place] [phone] 05/10/2022 Comprehensive Visit Orthopedic Surgery Warner Graves M.D. [address] [place] [phone] 05/22/2022 Appointment Laboratory Medicine Angélica Granger P.A.-C. [address] [place] [phone] 06/05/2022 Appointment Laboratory Medicine Angélica Granger P.A.-C. [address] [place] [phone] 06/19/2022 Appointment Laboratory Medicine Angélica Granger P.A.-C. [address] [place] [phone] 07/03/2022 Appointment Laboratory Medicine Angélica Granger P.A.-C. [address] [place] [phone] 07/17/2022 Appointment Laboratory Medicine Angélica Granger P.A.-C. [address] [place] [phone] 07/31/2022 Appointment Laboratory Medicine Angélica Granger P.A.-C. [address] [place] [phone] 08/14/2022 Appointment Laboratory Medicine Angléica Granger P.A.-C. [address] [place] [phone] 08/28/2022 Appointment Laboratory Medicine Angélica Granger P.A.-C. [address] [place] [phone] documented as of this encounter Visit Diagnoses Diagnosis Hypertension And Chronic Kidney Disease Stage 5 (HCC) Chronic Failure Renal End Stage Renal Di sease Dialysis Dependent (HCC) Immunodeficiency (HCC) Transplant Liver (HCC) documented in this encounter Additional Health Concerns Assessment Noted Time PHQ-9 Depression Total Score: 4 11/28/2020 10:17 AM CD T documented as of this encounter Care Teams Plodder Operator Relationship Specialty Start Date End Date Elsewhere, Pcp PCP - General Family Medicine 07/29/17 [facility] - Laboratory Medicine 04/12/[address] [address] documented as of this encounter
--- OUTSIDE RECORDS SUMMARY | 2022-04-13 12:10 | XMS_ITS | Encounter Summary ---
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 - 06/21/2021 2:[address] Otoniel Norwood ??[phone] CHIEF COMPLAINT/PURPOSE OF VISIT REASON FOR REFERRAL: ??Needs evaluation for permanent vascular access for dialysis PERTINENT PROCEDURAL HISTORY: ??Patient received vascular access education on 06/12/22 with Nirmala Aggarwal RN over the phone. He met with Dr. Shafer today. IMPRESSION/REPORT/PLAN ? Surgeon: Patient seen by Dr. Shafer Plan: Right brachial cephalic fistula Surgery: Is scheduled for 07/24/21 Checklist: The Checklist for Surgical Patients ([id number]) was given to the patient with the following instructions: Report to [facility] admissions at the time told to you when you call in the night before. Report fasting after midnight, no am breakfast, but take your am meds with water. I gave him an orange band for his right wrist to wear that says Save Your Veins. Insulin Directions: N/A Anticoagulation medications directions: N/A COVID-19 Testing: Ordered - yes KACIE: ??Dr. Norwood completed the KACIE on 06/14/21 clearing him for surgery. INFORMED CONSENT Patient signed the consent form. ?? H BRAKER documented in this encounter Plan of Treatment Upcoming Encounters Date Type Specialty Care Team Description 04/24/2022 Appointment Laboratory Medicine Angélica Granger P.A.-C. [address] [place] [phone] 04/25/2022 Office Visit Otorhinolaryngology Dex Matta APRN CDemetriusNDemetriusPDemetrius, M.S.N. [address] [place] [phone] 05/08/2022 Appointment Laboratory Medicine Angélica Granger P.A.-C. [address] [place] [phone] 05/08/2022 Clinical Admitting/Central Communication Scheduling 05/10/2022 Appointment Radiology Jeremie Rose M.D. [address] [place] [phone] 05/10/2022 Comprehensive Visit Orthopedic Surgery Warner Graves M.D. [address] [place] [phone] 05/22/2022 Appointment Laboratory Medicine Angélica Granger P.A.-C. [address] [place] [phone] 06/05/2022 Appointment Laboratory Medicine Angélica Granger P.A.-C. [address] [place] [phone] 06/19/2022 Appointment Laboratory Medicine Angélica Granger P.A.-C. [address] [place] [phone] 07/03/2022 Appointment Laboratory Medicine Angélica Granger P.A.-C. [address] [place] [phone] 07/17/2022 Appointment Laboratory Medicine Angélica Granger P.A.-C. [address] [place] [phone] 07/31/2022 Appointment Laboratory Medicine Angélica Granger P.A.-C. [address] [place] [phone] 08/14/2022 Appointment Laboratory Medicine Angélica Granger P.A.-C. [address] [place] [phone] 08/28/2022 Appointment Laboratory Medicine Angélica Granger P.A.-C. [address] [place] [phone] documented as of this encounter Visit Diagnoses Not on filedocumented in this encounter Additional Health Concerns Assessment Noted Time PHQ-9 Depression Total Score: 4 11/28/2020 10:17 AM CD T documented as of this encounter Care Teams Vision Care Associate Relationship Specialty Start Date End Date Elsewhere, Pcp PCP - General Family Medicine 07/29/17 [facility] - Laboratory Medicine 04/12/[address] [address] documented as of this encounter
--- OUTSIDE RECORDS SUMMARY | 2022-04-13 12:10 | XMS_ITS | Encounter Summary ---
:1955 Author Organization [facility] Address [address] [place] [address] Care Team Providers Name Role Phone Elsewhere, Pcp Primary Care Provider Unavailable Reason for Referral Outpatient (Routine) - Authorized Specialty Diagnoses / Procedures Referred By Contact Refer red To Contact Diagnoses Colitis Cytomegalovirus (HCC) Transplant Liver (HCC) Karyn Linares M.D. [facility] Procedures Perform central online marketing specialist: Site care, Flush port(s) [address] [place] [phone] Referral ID Status Reason Start Date Expiration Date Visits V isits Requested Authorized [id number] Authorized 06/26/2021 06/26/2022 8 8 D WING PILOT Reason for Visit Reason Comments Care Coordination PICC line dressing change Encounter Details Date Type Department Care Team Description 06/25/2021 [facility] for Yolie Freeman (PICC line ciarra ssing Transplantation and R.N. change) Clinical Regeneration [address] [facility] [place], [address] [place] [phone] Social History Tobacco Use Types Packs/Day Years [...] at Date Recorded Male 05/16/2020 4:27 PM FIXED WING PILOT documented as of this encounter Miscellaneous Notes Addendum Note - Karyn Linares M.D. - 06/26/2021 3:35 PM FIXED WING PILOT Addended by: KARYN LINARES on: 06/26/2021 03:35 PM Modules accepted: Orders D WING PILOT Addendum Note - Arabella Ayers R.N., C.C.T.C. - 06/26/2021 2:57 PM FIXED WING PILOT Addended by: ARABELLA AYERS on: 06/26/2021 02:57 PM Modules accepted: Orders D WING PILOT Telephone Encounter - Arabella Ayers R.N., Dilan - 06/26/2021 2:52 PM FIXED WING PILOT SUBJECTIVE PICC site care CHIEF COMPLAINT / REASON FOR CALL Care Coordination (PICC line dressing change) Information Discussed Returned call to Darryl at [facility]. He reports that Mr. Singh was taught how to give his ganciclovir infusions. Since they are not administering the medications, they are unable to provide site care. HisPICC line was placed on 06/14/21. He has his labs drawn at [facility]. Orders placed for PICC line site care at [facility]. PLAN Disposition/Recommendation: Orders will need to be placed for PICC site care Information/Education: not applicable Caller agreeable to plan of care: yes The following references were used: nursing clinical judgement D WING PILOT Telephone Encounter - Nadeem Whitney - 06/25/2021 11:49 AM CST Pt currently has a prescription for a home infusion for antibiotics. The pharmacy had questions about this and requested a call back. Please call [phone]. Thank you D WING PILOT documented in this encounter Plan of Treatment Upcoming Encounters Date Type Specialty Care Team Description 04/24/2022 Appointment Laboratory Medicine Angélica Granger P.A.-C. [address] [place] [phone] 04/25/2022 Office Visit Otorhinolaryngology Dex Matta APRN, C.N.P., M.S.N. [address] [place] [phone] 05/08/2022 Appointment Laboratory Medicine Angélica Granger P.A.-C. [address] [place] [phone] 05/08/2022 Clinical Admitting/Central Communication Scheduling 05/10/2022 Appointment Radiology Jeremie Rose M.D. [address] [place] [phone] 05/10/2022 Comprehensive Visit Orthopedic Surgery Warner Graves M.D. [address] [place] [phone] 05/22/2022 Appointment Laboratory Medicine Angélica Granger P.A.-C. [address] [place] [phone] 06/05/2022 Appointment Laboratory Medicine Angélica Granger P.A.-C. [address] [place] [phone] 06/19/2022 Appointment Laboratory Medicine Angélica Granger P.A.-C. [address] [place] [phone] 07/03/2022 Appointment Laboratory Medicine Angélica Granger P.A.-C. [address] [place] [phone] 07/17/2022 Appointment Laboratory Medicine Angélica Granger P.A.-C. [address] [place] [phone] 07/31/2022 Appointment Laboratory Medicine Angélica Granger P.A.-C. [address] [place] [phone] 08/14/2022 Appointment Laboratory Medicine GunAngélica wilcox P.A.-C. [address] [place] [phone] 08/28/2022 Appointment Laboratory Medicine Angélica Granger P.A.-C. 200 [place] [phone] Scheduled Orders Name Type Priority Associated Diagnoses Order S chedule Perform central Procedures Routine Colitis Cytomegalovirus W eekly for 8 online marketing specialist: (HCC) Occurrences starting Site care, Flush Transplant Liver (HCC) 0 06/26/2021 until port(s) 09/24/2022 documented as of this encounter Visit Diagnoses Diagnosis Colitis Cytomegalovirus (HCC) - Primary Transplant Liver (HCC) documented in this encounter Additional Health Concerns Assessment Noted Time PHQ-9 Depression Total Score: 4 11/28/2020 10:17 AM CD T documented as of this encounter Care Teams Warehouse Operator Relationship Specialty Start Date End Date Elsewhere, Pcp PCP - General Family Medicine 07/29/17 [facility] - Laboratory Medicine 04/12/[address] [address] documented as of this encounter
--- OUTSIDE RECORDS SUMMARY | 2022-04-13 12:10 | XMS_ITS | Encounter Summary ---
:1955 Author Organization [facility] Address [address] [place] [address] Care Team Providers Name Role Phone Elsewhere, Pcp Primary Care Provider Unavailable Reason for Visit Outpatient (Routine) - Closed Specialty Diagnoses / Procedures Referred By Contact Refer red To Contact Pulmonary Medicine Diagnoses Transplant Liver (HCC) Medication Therapy Longterm Not Anticoagulant Bronchiolitis Leonid Gonzalez, Leonid Simon M.D. M.D. 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 - 06/21/2021 3:00 PM CST Bronchiolitis with bronchospasm. I was asked to see this gentleman because of continued episodic wheezing. He has postnasal drainage.The chest CT scan shows waxing and waning patchy infiltrates in the lung bases. Ongoing renal insufficiency with dialysis is noted. He is planning to have dialysis done via an AV fistula to be placed in his right arm on the July. He will continue dialysis in that manner. 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 His chronic sinusitis has been an issue. Renal insufficiency now necessitate 6 further interventions with the dialysis as mentioned. 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 Serratia was isolated in the sputum specimen May 23 2021. He has been plagued by intermittent bronchospasm and productive sputum has been scant. He has not been using a bronchodilator on a regular basis. Exam Lungs No acute distress but there is significant bilateral bronchospasm heard with quiet breathing and worse with cough. Cardiac exam is unremarkable with a heart rate of about 80-90. Extremities negative for clubbing cyanosis or edema. Impression and plan I did review the chest CT scan with the gentleman as well as his chest x-ray. The chest x-ray did show some patchy infiltrates in the left lower lung field and much less seen in theright. The chest CT scan confirms these patchy infiltrates that have waxed and waned over several months. Because of the bronchospasm I want to put him on a 5 day course of prednisone 40 mg /day as well as initiate a regular course of albuterol 2 puffs 4 times a day and let us see how that modify his situation. He does have a prescription for Symbicort, but did not feel that that is been helpful. I think trying to clear up some of the infection first, as well as the current regimen that I am suggesting, will allow him to go back on Symbicort on a regular basis. For the time being was ago with the prednisone and albuterol regimen. I did electronically sent those scripts to [facility] in [place]. The gentleman is appreciative of this approach and hopefully we will see improvement as time goes on. Should also be noted that after I had seen him in 2019, he did develope the COVID infection earlierthis year after he had gotten the Moderna vaccinations. He was not hospitalized. All questions were answered. 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 [address] [place] [phone] 04/25/2022 Office Visit Otorhinolaryngology Dex Matta APRN, C.N.P., M.S.N. [address] [place] [phone] 05/08/2022 Appointment Laboratory Medicine Angélica Granger P.A.-C. [address] [place] [phone] 05/08/2022 Clinical Admitting/Central Communication Scheduling 05/10/2022 Appointment Radiology Jeremie Rose M.D. [address] [place] [phone] 05/10/2022 Comprehensive Visit Orthopedic Surgery Warner Graves M.D. [address] [place] [phone] 05/22/2022 Appointment Laboratory Medicine Angélica Granger P.A.-C. [address] [place] [phone] 06/05/2022 Appointment Laboratory Medicine Angélica Granger P.A.-C. [address] [place] [phone] 06/19/2022 Appointment Laboratory Medicine Angélica Granger P.A.-C. [address] [place] [phone] 07/03/2022 Appointment Laboratory Medicine Angélica Granger P.A.-C. [address] [place] [phone] 07/17/2022 Appointment Laboratory Medicine Angélica Granger P.A.-C. [address] [place] [phone] 07/31/2022 Appointment Laboratory Medicine Angélica Granger P.A.-C. [address] [place] [phone] 08/14/2022 Appointment Laboratory Medicine Angélica Granger P.A.-C. [address] [place] [phone] 08/28/2022 Appointment Laboratory Medicine Angélica Granger P.A.-C. [address] [place] [phone] documented as of this encounter Visit Diagnoses Diagnosis Transplant Liver (HCC) Medication Therapy Longterm Not Anticoa gulant Bronchiolitis documented in this encounter Additional Health Concerns Assessment Noted Time PHQ-9 Depression Total Score: 4 11/28/2020 10:17 AM CD T documented as of this encounter Care Teams Glove Stitcher Relationship Specialty Start Date End Date Elsewhere, Pcp PCP - General Family Medicine 07/29/17 [facility] - Laboratory Medicine 04/12/[address] [address] documented as of this encounter
--- OUTSIDE RECORDS SUMMARY | 2022-04-13 12:10 | XMS_ITS | Encounter Summary ---
:1955 Author Organization [facility] Address [address] [place] [address] Care Team Providers Name Role Phone Elsewhere, Pcp Primary Care Provider Unavailable Reason for Referral MRI/CAT/PET Scan (Routine) - Closed Specialty Diagnoses / Procedures Referred By Contact Refer red To Contact Radiology Diagnoses Rhinosinusitis Chronic Toro Pena M.D. [facility] Procedures CT Sinuses without IV Contrast [address] [place] [address] Referral ID Status Reason Start Date Expiration Date Visits Requ ested Visits Authorized [id number] Closed 06/26/2021 06/26/2022 1 1 utpatient (Routine) - Closed Specialty Diagnoses / Procedures Referred By Contact Refer red To Contact Otorhinolaryngology Toro Pena M.D . [facility] [address] [place] [address] Referral ID Status Reason Start Date Expiration Date Visits Requ ested Visits Authorized [id number] Closed 06/26/2021 06/26/2022 1 1 Scheduling Instructions 2 pm post op slot. This is ok per [facility] ANCHOR Encounter Details Date Type Department Care Team Description 06/26/2021 Orders Only Department of [place], Rhinosinusitis Otorhinolaryngology in [place] K, Chron ic (Primary Dx) [place], [place] R.N. 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 [address] [place] [phone] 04/25/2022 Office Visit Otorhinolaryngology Dex Matta APRN C.N.P., M.S.N. [address] [place] [phone] 05/08/2022 Appointment Laboratory Medicine Angélica Granger P.A.-C. [address] [place] [phone] 05/08/2022 Clinical Admitting/Central Communication Scheduling 05/10/2022 Appointment Radiology Jeremie Rose M.D. [address] [place] [phone] 05/10/2022 Comprehensive Visit Orthopedic Surgery Warner Graves M.D. [address] [place] [phone] 05/22/2022 Appointment Laboratory Medicine Angélica Granger P.A.-C. [address] [place] [phone] 06/05/2022 Appointment Laboratory Medicine Angélica Granger P.A.-C. [address] [place] [phone] 06/19/2022 Appointment Laboratory Medicine Angélica Granger P.A.-C. [address] [place] [phone] 07/03/2022 Appointment Laboratory Medicine Angélica Granger P.A.-C. [address] [place] [phone] 07/17/2022 Appointment Laboratory Medicine Angélica Granger P.A.-C. [address] [place] [phone] 07/31/2022 Appointment Laboratory Medicine Angélica Granger P.A.-C. [address] [place] [phone] 08/14/2022 Appointment Laboratory Medicine Angélica Granger P.A.-C. [address] [place] [phone] 08/28/2022 Appointment Laboratory Medicine Angélica Granger P.A.-C. [address] [place] [phone] Scheduled Referrals Name Type Priority Associated Order Schedule Diagnoses Otorhinolaryngology office Outpatient Routine E xpected: visit (clinic) Referral 07/03/2021 (Approximate), Expires: 09/24/2022 documented as of this encounter Results CT Sinuses without IV Contrast (07/03/2021 7:29 AM NEWS ANCHOR) Anatomical Region Laterality Modality Head, Neuroradiology RST LOS, N/A Computed T omography, Computed Neuroradiology ARZ LOS, Neuroradiology T omography [facility] Specimen (Source) Anatomical Collection Method Collection Time Re ceived Time Location / / Volume Laterality 07/03/2021 8:43 AM NEWS ANCHOR Impressions 07/03/2021 8:48 AM NEWS ANCHOR Progressive paranasal sinus inflammatory changes particularly within the right maxillary antrum and ethmoid a ir cells bilaterally with near complete opacification since 10/12/2020. Narrative 07/03/2021 8:48 AM NEWS ANCHOR EXAM: CT SINUSES WITHOUT IV CONTRAST COMPARISON: [...] Visit Diagnoses Diagnosis Rhinosinusitis Chronic - Primary Rhinosinusitis Chronic documented in this encounter Additional Health Concerns Assessment Noted Time PHQ-9 Depression Total Score: 4 11/28/2020 10:17 AM CD T documented as of this encounter Care Teams Cleaning Maid Relationship Specialty Start Date End Date Elsewhere, Pcp PCP - General Family Medicine 07/29/17 [facility] - Laboratory Medicine 04/12/20 [place] [address] documented as of this encounter
--- OUTSIDE RECORDS SUMMARY | 2022-04-13 12:10 | XMS_ITS | Encounter Summary ---
:1955 Author Organization [facility] Address [address] [place] [address] Care Team Providers Name Role Phone Elsewhere, Pcp Primary Care Provider Unavailable Reason for Referral Outpatient (Routine) - Closed Specialty Diagnoses / Procedures Referred By Contact Refer red To Contact Pulmonary Medicine Diagnoses Transplant Liver (HCC) Medication Therapy Shelter Not Anticoagulant Bronchiolitis Leonid Gonzalez Krowka, Michael J, M.D. M.D. 200 [facility] 200 [place] [phone] Fax: Referral ID Status Reason Start Date Expiration Date Visits Requ ested Visits Authorized [id number] Closed 06/19/2021 06/19/2022 1 1 Scheduling Instructions SPECIAL- please schedule first available Dr Simon visit in relation to recent CT scan. Please call patient to schedule. Monserrat dean [place] POPPER Encounter Details Date Type Department Care Team Description 06/19/2021 Orders Only Yolie Gamez Trans plant Liver (HCC) (Primary Dx); Center for R, R.N. 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 [address] [place] [phone] 04/25/2022 Office Visit Otorhinolaryngology Dex Matta APRN, C.N.P., M.S.N. [address] [place] [phone] 05/08/2022 Appointment Laboratory Medicine Angélica Granger P.A.-C. [address] [place] [phone] 05/08/2022 Clinical Admitting/Central Communication Scheduling 05/10/2022 Appointment Radiology Jeremie Rose M.D. [address] [place] [phone] 05/10/2022 Comprehensive Visit Orthopedic Surgery Warner Graves M.D. [address] [place] [phone] 05/22/2022 Appointment Laboratory Medicine Angélica Granger P.A.-C. [address] [place] [phone] 06/05/2022 Appointment Laboratory Medicine Angélica Granger P.A.-C. [address] [place] [phone] 06/19/2022 Appointment Laboratory Medicine Angélica Granger P.A.-C. [address] [place] [phone] 07/03/2022 Appointment Laboratory Medicine Angélica Granger P.A.-C. [address] [place] [phone] 07/17/2022 Appointment Laboratory Medicine Angélica Granger P.A.-C. [address] [place] [phone] 07/31/2022 Appointment Laboratory Medicine Angélica Granger P.A.-C. [address] [place] [phone] 08/14/2022 Appointment Laboratory Medicine Angélica Granger P.A.-C. [address] [place] [address] 08/28/2022 Appointment Laboratory Medicine Angélica Granger P.A.-C. [address] [place] [address] Scheduled Referrals Name Type Priority Associated Diagnoses Order S chedule Return to provider Outpatient Referral Routine Transplant Live r Expected: in another (HCC) 06/19/2021 specialty Medication Therapy (Approxim ate), Shelter Not Expires: Anticoagulant 09/17/2022 Bronchiolitis documented as of this encounter Visit Diagnoses Diagnosis Transplant Liver (HCC) - Primary Medication Therapy Shelter Not Anticoa gulant Bronchiolitis documented in this encounter Additional Health Concerns Assessment Noted Time PHQ-9 Depression Total Score: 4 11/28/2020 10:17 AM CD T documented as of this encounter Care Teams Apparel Embroidery Digitizer Relationship Specialty Start Date End Date Elsewhere, Pcp PCP - General Family Medicine 07/29/17 [facility] - Laboratory Medicine 04/12/[address] [address] documented as of this encounter
--- OUTSIDE RECORDS SUMMARY | 2022-04-13 12:10 | XMS_ITS | Encounter Summary ---
:1955 Author Organization [facility] Address [address] [place] [address] Care Team Providers Name Role Phone Elsewhere, Pcp Primary Care Provider Unavailable Reason for Visit Reason Comments Communication new order Encounter Details Date Type Department Care Team Description 06/20/2021 Clinical Curt Pugh, Commun ication (new Communication Center for maggi Thompson) Transplantation and PAdilia, Clinical Regeneration M.S. 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 - 06/20/2021 10:43 AM CST IR Tunneled PICC Removal order placed. LY COUNSELOR Telephone Encounter - Meena Aguilar - 06/20/2021 9:20 AM CST Janet Patient is scheduled to see ifd on 07/12. New order needed for his PICC line removal. Please order Tunneled line removal with IR. Thank you Nayely LY COUNSELOR documented in this encounter Plan of Treatment Upcoming Encounters Date Type Specialty Care Team Description 04/24/2022 Appointment Laboratory Medicine Angélica Granger P.A.-C. [address] [place] [address] 04/25/2022 Office Visit Otorhinolaryngology Dex Matta APRN CDemetriusNDemetriusPDemetrius, M.S.N. [address] [place] [phone] 05/08/2022 Appointment Laboratory Medicine Angélica Granger P.A.-C. [address] [place] [phone] 05/08/2022 Clinical Admitting/Central Communication Scheduling 05/10/2022 Appointment Radiology Jeremie Rose M.D. [address] [place] [phone] 05/10/2022 Comprehensive Visit Orthopedic Surgery Warner Graves M.D. [address] [place] [phone] 05/22/2022 Appointment Laboratory Medicine Angélica Granger P.A.-C. [address] [place] [phone] 06/05/2022 Appointment Laboratory Medicine Angélica Granger P.A.-C. [address] [place] [phone] 06/19/2022 Appointment Laboratory Medicine Angélica Granger P.A.-C. [address] [place] [phone] 07/03/2022 Appointment Laboratory Medicine Angélica Granger P.A.-C. [address] [place] [phone] 07/17/2022 Appointment Laboratory Medicine Angélica Granger P.A.-C. [address] [place] [phone] 07/31/2022 Appointment Laboratory Medicine Angélica Granger P.A.-C. [address] [place] [address] 08/14/2022 Appointment Laboratory Medicine Angélica Granger P.A.-C. [address] [place] [phone] 08/28/2022 Appointment Laboratory Medicine Angélica Granger P.A.-C. [address] [place] [phone] documented as of this encounter Visit Diagnoses Diagnosis Transplant Liver (HCC) - Primary Medication Therapy Bobcat Operator Not Anticoa gulant Bacteremia documented in this encounter Additional Health Concerns Assessment Noted Time PHQ-9 Depression Total Score: 4 11/28/2020 10:17 AM CD T documented as of this encounter Care Teams Stock Analyst Relationship Specialty Start Date End Date Elsewhere, Pcp PCP - General Family Medicine 07/29/17 [facility] - Laboratory Medicine 04/12/[address] [address] documented as of this encounter
--- OUTSIDE RECORDS SUMMARY | 2022-04-13 12:10 | XMS_ITS | Encounter Summary ---
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 [address] [place] [phone] 04/25/2022 Office Visit Otorhinolaryngology Dex Matta, RAMONA, C.N.P., M.S.N. [address] [place] [phone] 05/08/2022 Appointment Laboratory Medicine Angélica Granger P.A.-CDemetrius [address] [place] [phone] 05/08/2022 Clinical Admitting/Central Communication Scheduling 05/10/2022 Appointment Radiology Jeremie Rose M.D. [address] [place] [phone] 05/10/2022 Comprehensive Visit Orthopedic Surgery Warner Graves M.D. [address] [place] [phone] 05/22/2022 Appointment Laboratory Medicine Angélica Granger P.A.-C. [address] [place] [phone] 06/05/2022 Appointment Laboratory Medicine Angélica Granger P.A.-C. [address] [place] [phone] 06/19/2022 Appointment Laboratory Medicine Angélica Granger P.A.-C. [address] [place] [phone] 07/03/2022 Appointment Laboratory Medicine Angélica Granger P.A.-C. [address] [place] [phone] 07/17/2022 Appointment Laboratory Medicine Angélica Granger P.A.-C. [address] [place] [phone] 07/31/2022 Appointment Laboratory Medicine Angélica Granger P.A.-C. [address] [place] [phone] 08/14/2022 Appointment Laboratory Angélica Royal P.A.-C. [address] [place] [phone] 08/28/2022 Appointment Laboratory Medicine Angélica Granger P.A.-C. [address] [place] [phone] documented as of this encounter Visit Diagnoses Diagnosis Hypertension And Chronic Kidney Disease Stage 4 (HCC) - Primary documented in this encounter Additional Health Concerns Assessment Noted Time PHQ-9 Depression Total Score: 4 11/28/2020 10:17 AM CD T documented as of this encounter Care Teams Embedded Software Design Engineer Relationship Specialty Start Date End Date Elsewhere, Pcp PCP - General Family Medicine 07/29/17 [facility] - Laboratory Medicine 04/12/20 [place] [address] documented as of this encounter
--- OUTSIDE RECORDS SUMMARY | 2022-04-13 12:11 | XMS_ITS | Encounter Summary ---
:1955 Author Organization [facility] Address [address] [place] [address] Care Team Providers Name Role Phone Elsewhere, Pcp Primary Care Provider Unavailable Reason for Referral MRI/CAT/PET Scan (Routine) - Closed Specialty Diagnoses / Procedures Referred By Contact Refer red To Contact Radiology Diagnoses Transplant Liver (HCC) Medication Therapy Jail Not Anticoagulant Chronic Cough Leonid Gonzalez M.D. 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 [facility] Procedures CT Chest without IV Contrast [address] [place], [place] [address] Referral ID Status Reason Start Date Expiration Date Visits Requ ested Visits Authorized [id number] Closed 06/05/2021 06/05/2022 1 1 Encounter Details Date Type Department Care Team Description 06/12/2021 Hospital Encounter Department of Leonid Gonzalez Liver (HCC); Radiology, Kd Camejo M.D. 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 Pain. No more than 2000 mg per day. amoxicillin (AMOXIL) Take 4 capsules by 0 [...] hours as needed for nausea or vomiting. valGANciclovir Take 1 tablet (450 3 tablet 0 06/13/2021 (Valcyte) 450 mg tablet mg total) by mouth 3 (three) times a week for 3 doses. Take after dialysis on dialysis days. vancomycin (VANCOCIN) Take 1 capsule (125 42 capsule 0 06/1207/03/2021 125 mg capsule mg total) by mouth 2 (two) times a day for 21 days. C. Diff. Prophylaxis while on Bactrim. budesonide (Pulmicort) Mix 1 ampule in 120 [...] DAILY tabletIndications: Transplant Liver (HCC) NIFEdipine XL Take 3 tablets (90 270 tablet 3 06/17/2020 (PROCARDIA XL) 30 mg 24 mg total) by mouth hr tablet daily. predniSONE (DELTASONE) Take 1 tablet (5 mg 90 tablet 3 06/2406/29/2021 5 mg tabletIndications: total) by mouth Transplant Liver (HCC), daily. Medication Therapy Oncologist Not Anticoagulant Spiriva Respimat 2.5 INHALE 2 PUFFS BY 4 g 0 01/09/2007/26/2021 mcg/actuation inhaler MOUTH DAILY sulfamethoxazole-trimet Take 1 tablet by 14 tablet 0 202006/26/2021 hoprim (BACTRIM,SEPTRA) mouth daily for 14 400-80 mg per tablet days. Take after dialysis on dialysis days. tacrolimus (PROGRAF) Take 2 capsules (1 360 capsule 3 202007/16/2021 0.5 mg mg total) by mouth 2 capsuleIndications: (two) times a day. Transplant Liver (HCC), Medication Therapy Jail Not Anticoagulant UNABLE TO FIND by nasal 0 10/12/2021 (alternating) route 2 (two) times a day. Azelastine 1mg to Sinus Rinse twice daily. [facility] documented as 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 [address] [place] [phone] 04/25/2022 Office Visit Otorhinolaryngology Dex Matta APRN, C.N.P., M.S.N. [address] [place] [phone] 05/08/2022 Appointment Laboratory Medicine Angélica Granger P.A.-CDmeetrius [address] [place] [phone] 05/08/2022 Clinical Admitting/Central Communication Scheduling 05/10/2022 Appointment Radiology Jeremie Rose M.D. [address] [place] [phone] 05/10/2022 Comprehensive Visit Orthopedic Surgery Warner Graves M.D. [address] [place] [phone] 05/22/2022 Appointment Laboratory Medicine Angélica Granger P.A.-CDemetrius [address] [place] [phone] 06/05/2022 Appointment Laboratory Medicine Angélica Granger P.A.-C. [address] [place] [address] [phone] 06/19/2022 Appointment Laboratory Medicine Angélica Granger P.A.-C. [address] [place] [phone] 07/03/2022 Appointment Laboratory Medicine Angélica Granger P.A.-C. [address] [place] [phone] 07/17/2022 Appointment Laboratory Medicine Angélica Granger P.A.-C. [address] [place] [phone] 07/31/2022 Appointment Laboratory Medicine Angélica Granger P.A.-C. [address] [place] [phone] 08/14/2022 Appointment Laboratory Medicine Angélica Granger P.A.-C. [address] [place] [phone] 08/28/2022 Appointment Laboratory Medicine Angélica Granger P.A.-C. 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 Not Anticoagulan t Chronic Cough documented in this encounter Results CT Chest without IV Contrast (06/12/2021 10:05 AM COMPUTER NETWORKING INSTRUCTOR) Anatomical Region Laterality Modality Chest, Thoracic RST LOS, Thoracic ARZ LOS, Thoracic N/A Computed Tomography FLA LOS Specimen (Source) Anatomical Collection Method Collection Time Re ceived Time Location / / Volume Laterality 06/12/2021 10:23 AM COMPUTER NETWORKING INSTRUCTOR Impressions 06/12/2021 11:10 AM COMPUTER NETWORKING INSTRUCTOR While there are some areas of waxing and waning bilateral infectious/inflammatory bronchiolitis, t here is an overall progression of these findings. Narrative 06/12/2021 11:10 AM COMPUTER NETWORKING INSTRUCTOR EXAM: CT CHEST WITHOUT IV CONTRAST COMPARISON: 10/12/2020 CT chest. FINDINGS: Few areas of waxing and waning of the bi lateral pulmonary clustered nodularity associated with endobronchial plugging, bronchial wall thickening, and bronchiectasis compared to 10/12/2020. F or example, the nodularity in the dependent part of the bilateral lower lo bes are similar. The nodularity in medial right middle and upper lobes and lingula have worsened. The nodularity in the posterior right upper lobe (for exam ple, series 3, image 248 from 10/12/2020) have improved. There is an o verall worsening of these findings. No thoracic adenopathy. Right chest wall tunneled central venous catheter with tip in the upper right atrium. Advanced coronary artery calcifications. Normal caliber thoracic aorta with mild atheros clerotic calcifications. Paraesophageal varices. Old right-sided rib fractures and old ri ght clavicle fracture. Degenerative changes cervicothoracic spine. No suspic ious osseous lesions. Small bilateral gynecomastia. Liver transplant. Splenomegaly. Procedure Note Chelsy Cannon M.D. - 06/12/2021For matting of this note might be different from the original. EXAM: CT CHEST WITHOUT IV CONTRAST COMPARISON: 10/12/2020 CT chest. FINDINGS: Few areas of waxing and waning of the bi lateral pulmonary clustered nodularity associated with endobronchial plugging, bronchial wall thickening, and bronchiectasis compared to 10/12/2020. F or example, the nodularity in the dependent part of the bilateral lower lo bes are similar. The nodularity in medial right middle and upper lobes and lingula have worsened. The nodularity in the posterior right upper lobe (for exam ple, series 3, image 248 from 10/12/2020) have improved. There is an o verall worsening of these findings. No thoracic adenopathy. Right chest wall tunneled central venous catheter with tip in the upper right atrium. Advanced coronary artery calcifications. Normal caliber thoracic aorta with mild atheros clerotic calcifications. Paraesophageal varices. Old right-sided rib fractures and old ri ght clavicle fracture. Degenerative changes cervicothoracic spine. No suspic ious osseous lesions. Small bilateral gynecomastia. Liver transplant. Splenomegaly. IMPRESSION: While there are some areas of waxing and waning bilateral infectious/inflammatory bronchiolitis, t here is an overall progression of these findings. Leonid Gonzalez M.D. IMAutumn CT PROCEDURES documented in this encounter Visit Diagnoses Diagnosis Transplant Liver (HCC) Medication Therapy Oncologist Not Anticoa gulant Chronic Cough documented in this encounter Additional Health Concerns Assessment Noted Time PHQ-9 Depression Total Score: 4 11/28/2020 10:17 AM CD T documented as of this encounter Care Teams Child Development Consultant Relationship Specialty Start Date End Date Elsewhere, Pcp PCP - General Family Medicine 07/29/17 [facility] - Laboratory Medicine 04/12/20 [place] [phone] documented as of this encounter
--- OUTSIDE RECORDS SUMMARY | 2022-04-13 12:11 | XMS_ITS | Encounter Summary ---
:1955 Author Organization [facility] Address [address] [place] [address] Care Team Providers Name Role Phone Elsewhere, Pcp Primary Care Provider Unavailable Reason for Referral Outpatient (Routine) - Closed Specialty Diagnoses / Procedures Referred By Contact Refer red To Contact Diagnoses Transplant Liver (HCC) Medication Therapy Tow Feeder Not Anticoagulant Colitis Cytomegalovirus (HCC) Trung Plasencia P.A.-C., [facility] Procedures Colonoscopy M.S. [address] [place], [place] [phone] Referral ID Status Reason Start Date Expiration Date Visits Requ ested Visits Authorized [id number] Closed 06/14/2021 06/14/2022 1 1 CTOR OF SAFETY AND SECURITY Transplant (Routine) - Closed Specialty Diagnoses / Procedures Referred By Contact Refer red To Contact Transplant Surgery / Diagnoses Transplant Liver (HCC) Medication Therapy Mcfp Not Anticoagulant Colitis Cytomegalovirus (HCC) Trung Plasencia, [facility] Transplant Edmundo, M.S. [address] [place] [address] Referral ID Status Reason Start Date Expiration Date Visits Requ ested Visits Authorized [id number] Closed 06/14/2021 06/14/2022 1 1 Scheduling Instructions SPECIAL- please schedule during the week of 07/09/20. Schedule in the following order: labs then colonoscopy then visit with Raffi Plasencia (Inf Dis) then PICC removal. Please call patient to schedule. Thanks CTOR OF SAFETY AND SECURITY Encounter Details Date Type Department Care Team Description 06/14/2021 Orders Only Curt Moss Yolie Trans plant Liver (HCC) (Primary Dx); [facility] for R, R.N. 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 [address] [place] [phone] 04/25/2022 Office Visit Otorhinolaryngology Dex Matta APRN, C.NDemetriusP., M.S.N. [address] [place] [phone] 05/08/2022 Appointment Laboratory Medicine Angélica Granger P.A.-C. [address] [place] [phone] 05/08/2022 Clinical Admitting/Central Communication Scheduling 05/10/2022 Appointment Radiology Jeremie Rose M.D. [address] [place] [phone] 05/10/2022 Comprehensive Visit Orthopedic Surgery Warner Graves M.D. [address] [place] [phone] 05/22/2022 Appointment Laboratory Medicine Angélica Granger P.A.-C. [address] [place] [phone] 06/05/2022 Appointment Laboratory Medicine Angélica Granger P.A.-C. [address] [place] [phone] 06/19/2022 Appointment Laboratory Medicine Angélica Granger P.A.-C. [address] [place] [phone] 07/03/2022 Appointment Laboratory Medicine Angélica Granger P.A.-C. [address] [place] [phone] 07/17/2022 Appointment Laboratory Medicine Angélica Granger P.A.-C. [address] [place] [phone] 07/31/2022 Appointment Laboratory Medicine Angélica Granger P.A.-C. [address] [place] [phone] 08/14/2022 Appointment Laboratory Medicine Angélica Granger P.A.-C. [address] [place] [phone] 08/28/2022 Appointment Laboratory Medicine Angélica Granger P.A.-C. [address] [place] [phone] Scheduled Referrals Name Type Priority Associated Diagnoses [facility] Outpatient Routine Transplant Live r (HCC) Expected: office visit Referral Medication Therapy Long 06/23, (clinic) Term Not Anticoa gulant Expires: Colitis Cytomegalovirus 08/22 ([facility]) documented as of this encounter Results Tacrolimus, B (07/10/2021 9:28 AM DIRECTOR OF SAFETY AND SECURITY) athologist Signature Tacrolimus, B 6.2 5.0-15.0 07/10/2021 SDSC (Trough) 6:51 PM DIRECTOR OF SAFETY AND SECURITY ng/mL Comment: ----ADDITIONAL INFORMATION---- Target steady-state trough concentration s vary depending on the type of transplant, concomitant immunosuppressio n, clinical/institutional protocols, and time post-transplant. Results should be interpreted in conjunction with this clinical information and any physic al signs/symptoms of rejection/toxicity. Testing performed by Liquid Chromatograp hy-Tandem Mass Spectrometry (LC-MS/MS). This test was developed and its performa nce characteristics determined by [facility] in a manner consistent with CLIA requirements. This test has not been cleared or approved by the U.S. Mer d and Drug Administration. Specimen Anatomical Collection Method Collection Time Receive d Time (Source) Location / / Volume Laterality Blood (Blood, 07/10/2021 9:28 AM 07/10/19 Venous) DIRECTOR OF SAFETY AND SECURITY 12:24 PM DIRECTOR OF SAFETY AND SECURITY Trung Plasencia P.A.-C. M.SDemetrius LAB BLOOD NON ADD-ON Performing Organization Address [facility] Phon e Number [facility] [address] [place] [address] [facility] [place] [address] Laboratory Medicine and Pathology [address] [place] [address] Dr. MURILLO (ABNORMAL) CMV DNA Detect / Quant, Plasma (07/10/2021 9:28 AM DIRECTOR OF SAFETY AND SECURITY) [facility] Method Time Signature CMV DNA <35 (A) Undetected 07/10/2021 [facility] Detect/Quant, IU/mL 9:28 PM DIRECTOR OF SAFETY AND SECURITY P Comment: Result in log IU/mL is <1.54. CMV DNA is detected, but level present i s <35 IU/mL (<1.54 log IU/mL). This assay cannot accurately quantify CMV DNA below this level. ----ADDITIONAL INFORMATION---- The quantification range of this assay i s 35 to 10,000,000 IU/mL (1.54 log to 7.00 log IU/mL). Testing was performed u sing the tika CMV test ([employer] with the tika [id number] System. Specimen Anatomical Collection Method Collection Time Receive d Time (Source) Location / / Volume Laterality Blood (Blood, 07/10/2021 9:28 AM 07/10/19 Venous) DIRECTOR OF SAFETY AND SECURITY 12:21 PM DIRECTOR OF SAFETY AND SECURITY Trung Plasencia P.A.-C. M.SDemetrius LAB MICROBIOLOGY - BLOOD O RDERABLES Performing Organization Address City/[facility] Phon e Number [facility] [address] [address] [place], [place] [address] [address] [facility] [place] [address] Laboratory Medicine and Pathology [address] [place] (ABNORMAL) Glucose, Fasting (07/10/2021 9:28 AM DIRECTOR OF SAFETY AND SECURITY) P athologist Signature Glucose, P 118 (H) 70 - 100 07/10/2021 DTL mg/dL 10:16 AM DIRECTOR OF SAFETY AND SECURITY Last Intake 19 hr 07/10/2021 DTL 10:02 AM DIRECTOR OF SAFETY AND SECURITY Specimen Anatomical Collection Method Collection Time Receive d Time (Source) Location / / Volume Laterality Blood (Blood, 07/10/2021 9:28 AM 07/10/19 22 Venous) DIRECTOR OF SAFETY AND SECURITY 10:02 AM DIRECTOR OF SAFETY AND SECURITY Trung Plasencia P.A.-C., M.S. LAB BLOOD NON ADD-ON Performing Organization Address City/State/ZIP Code Phon e Number [facility] - [address] [place], [place] [address] [facility] [place] [address] Laboratories-[facility] [address] (ABNORMAL) Comprehensive Metabolic Panel (07/10/2021 9:28 AM DIRECTOR OF SAFETY AND SECURITY) Analysis Performed At Patho logist Time Signature Potassium, S 4.1 3.6 - 5.2 07/10/2021 DTL mmol/L 10:18 AM DIRECTOR OF SAFETY AND SECURITY Sodium, S 137 135 - 145 07/10/2021 DTL mmol/L 10:18 AM DIRECTOR OF SAFETY AND SECURITY Chloride, S 98 98 - 107 07/10/2021 DTL mmol/L 10:18 AM DIRECTOR OF SAFETY AND SECURITY Bicarbonate, S 24 22 - 29 07/10/2021 DTL mmol/L 10:18 AM DIRECTOR OF SAFETY AND SECURITY Anion Gap 15 7 - 15 07/10/2021 DTL 10:18 AM DIRECTOR OF SAFETY AND SECURITY BUN (Blood Urea 25 (H) 8 - 24 07/10/2021 DTL Nitrogen), S mg/dL 10:18 AM DIRECTOR OF SAFETY AND SECURITY Creatinine 2.75 (H) 0.74 - 07/10/2021 DTL 1.35 mg/dL 10:18 AM DIRECTOR OF SAFETY AND SECURITY eGFR-Non 23 (L) >=60 07/10/2021 DTL Black/ mL/min/BSA 10:18 AM DIRECTOR OF SAFETY AND SECURITY Estonian Comment: ----ADDITIONAL INFORMATION---- Estimated GFR calculated using the 2009 CKD_EPI creatinine equation. eGFR-Black/ 27 (L) >=60 mL/min/BSA 2021 10:18 AM DIRECTOR OF SAFETY AND SECURITY DTL Comment: ----ADDITIONAL INFORMATION---- Estimated GFR calculated using the 2009 CKD_EPI creatinine equation. Calcium, Total, S 8.9 8.8 - 10.2 mg/dL 07/10/2021 10:1 8 AM DIRECTOR OF SAFETY AND SECURITY DTL Glucose, S CANCELED mg/dL 07/10/2021 10:02 AM DIRECTOR OF SAFETY AND SECURITY DTL Comment: Duplicate test request. Result canceled by the ancillary. Protein, Total, S 6.1 (L) 6.3 - 7.9 g/dL 07/10/2021 10:18 AM DIRECTOR OF SAFETY AND SECURITY DTL Albumin, S 3.9 3.5 - 5.0 g/dL 07/10/2021 10:18 AM DIRECTOR OF SAFETY AND SECURITY DTL Aspartate Aminotransferase 29 8 - 48 U/L 07/10/2021 1 0:18 AM DIRECTOR OF SAFETY AND SECURITY DTL (AST), S Alkaline Phosphatase, S 151 (H) 40 - 129 U/L 07/10/2021 10 :18 AM DIRECTOR OF SAFETY AND SECURITY DTL Alanine Aminotransferase 34 7 - 55 U/L 07/10/2021 10: 18 AM DIRECTOR OF SAFETY AND SECURITY DTL (ALT), S Bilirubin, Total, S 0.4 <=1.2 mg/dL 07/10/2021 10:18 A M DIRECTOR OF SAFETY AND SECURITY DTL Specimen Anatomical Collection Method Collection Time Receive d Time (Source) Location / / Volume Laterality Blood (Blood, 07/10/2021 9:28 AM 07/10/19 22 Venous) DIRECTOR OF SAFETY AND SECURITY 10:01 AM DIRECTOR OF SAFETY AND SECURITY Trung Plasencia P.A.-C., M.S. LAB BLOOD ADD-ON Performing Organization Address City/State/ZIP Code Phon e Number [facility] - [address] [place], [place] [address] [facility] [place] [address] [facility] [address] [facility] (ABNORMAL) CBC with Differential, Blood (07/10/2021 9:28 AM DIRECTOR OF SAFETY AND SECURITY) [facility] gist Method Time Signature Hemoglobin 10.1 (L) 13.2 - 07/10/2021 DTL 16.6 g/dL 9:55 AM DIRECTOR OF SAFETY AND SECURITY Hematocrit 31.2 (L) 38.3 - 07/10/2021 DTL 48.6 % 9:55 AM DIRECTOR OF SAFETY AND SECURITY Erythrocytes 3.21 (L) 4.35 - 07/10/2021 DTL 5.65 9:55 AM DIRECTOR OF SAFETY AND SECURITY x10(12)/L MCV 97.2 78.2 - 07/10/2021 DTL 97.9 fL 9:55 AM DIRECTOR OF SAFETY AND SECURITY RBC Distrib Width 14.5 11.8 - 07/10/2021 DTL 14.5 % 9:55 AM DIRECTOR OF SAFETY AND SECURITY Platelet Count 209 135 - 317 07/10/2021 DTL x10(9)/L 9:55 AM DIRECTOR OF SAFETY AND SECURITY Leukocytes 4.7 3.4 - 9.6 07/10/2021 DTL x10(9)/L 9:55 AM DIRECTOR OF SAFETY AND SECURITY Neutrophils 3.61 1.56 - 07/10/2021 DTL 6.45 9:55 AM DIRECTOR OF SAFETY AND SECURITY x10(9)/L Lymphocytes 0.45 (L) 0.95 - 07/10/2021 DTL 3.07 9:55 AM DIRECTOR OF SAFETY AND SECURITY x10(9)/L Monocytes 0.55 0.26 - 07/10/2021 DTL 0.81 9:55 AM DIRECTOR OF SAFETY AND SECURITY x10(9)/L Eosinophils 0.04 0.03 - 07/10/2021 DTL 0.48 9:55 AM DIRECTOR OF SAFETY AND SECURITY x10(9)/L Basophils <0.03 0.01 - 07/10/2021 DTL 0.08 9:55 AM DIRECTOR OF SAFETY AND SECURITY x10(9)/L Specimen Anatomical Collection Method Collection Time Receive d Time (Source) Location / / Volume Laterality Blood (Blood, 07/10/2021 9:28 AM 07/10/19 22 9:46 Venous) DIRECTOR OF SAFETY AND SECURITY AM DIRECTOR OF SAFETY AND SECURITY Trung Plasencia P.A.-C., M.S. LAB BLOOD ADD-ON Performing Organization Address City/State/ZIP Code Phon e Number [facility] - [address] [place], [place] [address] [facility] [place] [address] Laboratories-[facility] [address] documented in this encounter Visit Diagnoses Diagnosis Transplant Liver (HCC) - Primary Medication Therapy Tow Feeder Not Anticoa gulant Colitis Cytomegalovirus (HCC) documented in this encounter Additional Health Concerns Assessment Noted Time PHQ-9 Depression Total Score: 4 11/28/2020 10:17 AM CD T documented as of this encounter Care Teams Mixing Machine Tender Relationship Specialty Start Date End Date Elsewhere, Pcp PCP - General Family Medicine 07/29/17 [facility] - Laboratory Medicine 04/12/[address] [address] documented as of this encounter
--- OUTSIDE RECORDS SUMMARY | 2022-04-13 12:11 | XMS_ITS | Encounter Summary ---
:1955 Author Organization [facility] Address [address] [place] [address] Care Team Providers Name Role Phone Elsewhere, Pcp Primary Care Provider Unavailable Reason for Referral Outpatient (Routine) - Closed Specialty Diagnoses / Procedures Referred By Contact Refer red To Contact Radiology Diagnoses Colitis Cytomegalovirus (HCC) Trung Plasencia P.A.-C., [facility] Procedures IR PICC Line Placement M.S. [address] [place] [phone] Referral ID Status Reason Start Date Expiration Date Visits Requ ested Visits Authorized [id number] Closed 06/13/2021 06/13/[address] REPAIRMAN Encounter Details Date Type Department Care Team Description 06/13/2021 Orders Only Trung Swenson Cytomegalovirus Center for Edmundo Stern, (HCC) (Primary Dx) Transplantation and M.S. Clinical Regeneration in [address] [place] [address] [place] [phone] [place] [address] [phone] Social History Tobacco Use Types Packs/Day Years [...] or relatives? How often do you attend adventist or More than 4 times per year 12/15/2021 gnosticist services? 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 [address] [place] [phone] 05/08/2022 Appointment Laboratory Medicine Angélica Granger P.A.-C. [address] [place] [phone] 05/08/2022 Clinical Admitting/Central Communication Scheduling 05/10/2022 Appointment Radiology Jeremie Rose M.D. [address] [place] [phone] 05/10/2022 Comprehensive Visit Orthopedic Surgery Warner Graves M.D. [address] [place] [phone] 05/22/2022 Appointment Laboratory Medicine Angélica Granger P.A.-C. [address] [place] [phone] 06/05/2022 Appointment Laboratory Medicine Angélica Granger P.A.-C. [address] [place] [phone] 06/19/2022 Appointment Laboratory Medicine Angélica Granger P.A.-C. [address] [place] [phone] 07/03/2022 Appointment Laboratory Medicine Angélica Granger P.A.-C. [address] [place] [phone] 07/17/2022 Appointment Laboratory Medicine Angélica Granger P.A.-C. [address] [place] [phone] 07/31/2022 Appointment Laboratory Medicine Angélica Granger P.A.-C. [address] [place] [phone] 08/14/2022 Appointment Laboratory Medicine Angélica Granger P.A.-C. [address] [place] [phone] 08/28/2022 Appointment Laboratory Medicine DarlingAngélica melendrez Jennifer Stern. [address] [place] [phone] documented as of this encounter Results IR PICC Line Placement (06/14/2021 11:24 AM RAILROAD CAR REPAIRMAN) Anatomical Region Laterality Modality Chest, Pelvis, Abdomen, Vascular Interventional RST LOS, N/A X-Ray Angiography Vascular Interventional ARZ LOS, Vascular Interventional FLA LOS Specimen (Source) Anatomical Collection Method Collection Time Re ceived Time Location / / Volume Laterality 06/14/2021 2:30 PM RAILROAD CAR REPAIRMAN Impressions 06/14/2021 2:32 PM RAILROAD CAR REPAIRMAN Placement of a tunneled left IJV 4 Algerian single lumen PowerPICC SOLO. Ready for immediate use. 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 TECHNIQUE: The left neck and chest were prepped and draped in sterile fashion. Using ultrasound guidance to access vess el, patency was shown and after anesthetizing the skin with lidocaine, t he left internal jugular vein was punctured successfully. A permanent imag e was created and stored. Wire advanced centrally and used for measurement purpo ses. Next, after anesthetizing the skin with lidocaine, a small incision was mad e over the left anterior chest wall. A 4 Algerian single lumen PowerPICC SOLO was t unneled from the chest incision to the venotomy. A peel-away sheath was placed in the venotomy and catheter, cut to length, was advanced through the sheath. Catheter exits the skin at the 0 cm alejandro. Final radiograph demonstrates the catheter tip at the SVC/RA junction. Catheter flushes and aspirates well and was secured the skin with 2-0 Prolene stitch. Neck puncture closed with 4-0 Vi cryl stitch. No immediate complication. For placement of this central venous acc ess, we followed catheter checklist and a standardized protocol. The position of the catheter tip was confirmed under fluoroscopic guidance and a final image of the catheter position was obtained. Ready for use. CT-injectable PowerPICC was placed. This device can be power injected up to a pressure of 300 PSI and flow rate of 5 m L/sec. PREPROCEDURE: ??Patient seen and evaluat ed. Allergies, pertinent medications, and history reviewed. Discussed risks, benef its, alternatives for procedure, and obtained informed consent. Patient under stands information and questions answered. Immediately prior to starting the procedure, in the presence of the assisting personnel, procedural pause wa s conducted to verify correct patient identity and verification of procedure t o be performed, and as applicable, correct side and site, correct patient p osition, availability of implants, special equipment, or special requiremen ts, and all image and specimen identification data. The roles and respo nsibilities of care team members, residents, and fellows were discussed. Procedure Note Elian Sheppard M.D. - 06/14/2021For matting of this note might be different from the original. 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 TECHNIQUE: The left neck and chest were prepped and draped in sterile fashion. Using ultrasound guidance to access vess el, patency was shown and after anesthetizing the skin with lidocaine, t he left internal jugular vein was punctured successfully. A permanent imag e was created and stored. Wire advanced centrally and used for measurement purpo ses. Next, after anesthetizing the skin with lidocaine, a small incision was mad e over the left anterior chest wall. A 4 Algerian single lumen PowerPICC SOLO was t unneled from the chest incision to the venotomy. A peel-away sheath was placed in the venotomy and catheter, cut to length, was advanced through the sheath. Catheter exits the skin at the 0 cm alejandro. Final radiograph demonstrates the catheter tip at the SVC/RA junction. Catheter flushes and aspirates well and was secured the skin with 2-0 Prolene stitch. Neck puncture closed with 4-0 Vi cryl stitch. No immediate complication. For placement of this central venous acc ess, we followed catheter checklist and a standardized protocol. The position of the catheter tip was confirmed under fluoroscopic guidance and a final image of the catheter position was obtained. Ready for use. CT-injectable PowerPICC was placed. This device can be power injected up to a pressure of 300 PSI and flow rate of 5 m L/sec. PREPROCEDURE: Patient seen and evaluated . Allergies, pertinent medications, and history reviewed. Discussed risks, benef its, alternatives for procedure, and obtained informed consent. Patient under stands information and questions answered. Immediately prior to starting the procedure, in the presence of the assisting personnel, procedural pause wa s conducted to verify correct patient identity and verification of procedure t o be performed, and as applicable, correct side and site, correct patient p osition, availability of implants, special equipment, or special requiremen ts, and all image and specimen identification data. The roles and respo nsibilities of care team members, residents, and fellows were discussed. IMPRESSION: Placement of a tunneled left IJV 4 Frenc h single lumen PowerPICC SOLO. Ready for immediate use. EP Trung Plasencia P.A.-C., M.S. IMG IR PROCEDURES documented in this encounter Visit Diagnoses Diagnosis Colitis Cytomegalovirus (HCC) - Primary Colitis Cytomegalovirus (HCC) documented in this encounter Additional Health Concerns Assessment Noted Time PHQ-9 Depression Total Score: 4 11/28/2020 10:17 AM CD T documented as of this encounter Care Teams Carver And Checkerer Specials Relationship Specialty Start Date End Date Elsewhere, Pcp PCP - General Family Medicine 07/29/17 [facility] - Laboratory Medicine 04/12/[address] [address] documented as of this encounter
--- OUTSIDE RECORDS SUMMARY | 2022-04-13 12:11 | XMS_ITS | Encounter Summary ---
:1955 Author Organization [facility] Address [address] [place] [address] Care Team Providers Name Role Phone Elsewhere, Pcp Primary Care Provider Unavailable Encounter Details Date Type Department Care Team Description 06/14/2021 Documentation Division of Nephrology and Suhail Norwood Hypertension in [place], ., D.O. 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 - 06/14/2021 2:38 PM CST Care coordination note, and pre anesthetic evaluation I visited with him on dialysis within the last month, and found him to be doing quite well followinginitiation of dialysis. Please see my note from the [facility] everywhere tab I am asked to provide preoperative assessment for his potential creation of an upper extremity fistula for his dialysis. I appreciate he had a normal dobutamine stress echo performed in November of this past year, he has no referable cardiopulmonary symptoms, and is now able to ascend a flight of stairs without difficulty. His ECG performed on 05/24/2021 is within acceptable ranges. He has previously tolerated general anesthesia without issues, he is a liver transplant recipient. Pre anesthetic medical evaluation: He is optimized for anesthesia as required for his fistula creation. GHT TALLIER documented in this encounter Plan of Treatment Upcoming Encounters Date Type Specialty Care Team Description 04/24/2022 Appointment Laboratory Medicine Angélica Granger P.A.-C. [address] [place] [phone] 04/25/2022 Office Visit Otorhinolaryngology Dex Matta APRN, C.N.P., M.S.N. [address] [place] [phone] 05/08/2022 Appointment Laboratory Medicine Angélica Granger P.A.-C. [address] [place] [phone] 05/08/2022 Clinical Admitting/Central Communication Scheduling 05/10/2022 Appointment Radiology Jeremie Rose M.D. [address] [place] [phone] 05/10/2022 Comprehensive Visit Orthopedic Surgery Warner Graves M.D. [address] [place] [phone] 05/22/2022 Appointment Laboratory Medicine Angélica Granger P.A.-C. [address] [place] [phone] 06/05/2022 Appointment Laboratory Medicine Angélica Granger P.A.-C. [address] [place] [phone] 06/19/2022 Appointment Laboratory Medicine Angélica Granger P.A.-C. [address] [place] [phone] 07/03/2022 Appointment Laboratory Medicine Angélica Granger P.A.-C. [address] [place] [phone] 07/17/2022 Appointment Laboratory Medicine Angélica Granger P.A.-C. [address] [place] [phone] 07/31/2022 Appointment Laboratory Medicine Angélica Granger P.A.-C. [address] [place] [phone] 08/14/2022 Appointment Laboratory Medicine Angélica Granger P.A.-C. [address] [place] [phone] 08/28/2022 Appointment Laboratory Medicine Angélica Granger P.A.-C. [address] [place] [phone] documented as of this encounter Visit Diagnoses Not on filedocumented in this encounter Additional Health Concerns Assessment Noted Time PHQ-9 Depression Total Score: 4 11/28/2020 10:17 AM CD T documented as of this encounter Care Teams Mobile Home Technician Relationship Specialty Start Date End Date Elsewhere, Pcp PCP - General Family Medicine 07/29/17 [facility] - Laboratory Medicine 04/12/[address] [address] documented as of this encounter
--- OUTSIDE RECORDS SUMMARY | 2022-04-13 12:11 | XMS_ITS | Encounter Summary ---
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 [address] [place] [phone] 04/25/2022 Office Visit Otorhinolaryngology Dex Matta APRN, C.N.P., M.S.N. [address] [place] [phone] 05/08/2022 Appointment Laboratory Medicine Angélica Granger P.A.-C. [address] [place] [phone] 05/08/2022 Clinical Admitting/Central Communication Scheduling 05/10/2022 Appointment Radiology Jeremie Rose M.D. [address] [place] [phone] 05/10/2022 Comprehensive Visit Orthopedic Surgery Warner Graves M.D. [address] [place] [phone] 05/22/2022 Appointment Laboratory Medicine Angélica Granger P.A.-C. [address] [place] [phone] 06/05/2022 Appointment Laboratory Medicine Angélica Granger P.A.-C. [address] [place] [phone] 06/19/2022 Appointment Laboratory Medicine Angélica Granger P.A.-C. [address] [place] [phone] 07/03/2022 Appointment Laboratory Medicine Angélica Granger P.A.-C. [address] [place] [phone] 07/17/2022 Appointment Laboratory Medicine Angélica Granger P.A.-C. [address] [place] [phone] 07/31/2022 Appointment Laboratory Medicine Angélica Granger P.A.-C. [address] [place] [phone] 08/14/2022 Appointment Laboratory Medicine Angélica Granger P.A.-C. [address] [place] [phone] 08/28/2022 Appointment Laboratory Medicine Angélica Granger P.A.-C. [address] [place] [phone] documented as of this encounter Procedures Procedure Name Priority Date/Time Associated Comments Diagnosis GASTROENTEROLOGY IMAGE Routine 06/06/2021 2:35 Re sults for this EXAM PM CADDY/CADDIE SUPERVISOR procedure are i n the results section. documented in this encounter Results Colonoscopy-Gastroenterology Image Exam (06/06/2021 2:35 PM CADDY/CADDIE SUPERVISOR) Specimen (Source) Anatomical Collection Method Collection Time Re ceived Time Location / / Volume Laterality 06/06/2021 2:32 PM CADDY/CADDIE SUPERVISOR Narrative IIMS - 06/06/2021 3:37 PM CADDY/CADDIE SUPERVISOR This order has been created and auto-finalized [...] documented as of this encounter Care Teams Laundry Laborer Relationship Specialty Start Date End Date Elsewhere, Pcp PCP - General Family Medicine 07/29/17 [facility] - Laboratory Medicine 04/12/[address] [address] documented as of this encounter
--- OUTSIDE RECORDS SUMMARY | 2022-04-13 12:11 | XMS_ITS | Encounter Summary ---
:1955 Author Organization [facility] Address [address] [place] [address] Care Team Providers Name Role Phone Elsewhere, Pcp Primary Care Provider Unavailable Encounter Details Date Type Department Care Team Description 06/07/2021 Orders Only Curt Garces Javier, Gail Griffiths Kidney Disease; [facility] for M[facility]. 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 [address] [place] [phone] 04/25/2022 Office Visit Otorhinolaryngology Dex Matta, RAMONA, C.N.P., M.S.N. [address] [place] [phone] 05/08/2022 Appointment Laboratory Medicine Angélica Granger, P.A.-C. [address] [place] [phone] 05/08/2022 Clinical Admitting/Central Communication Scheduling 05/10/2022 Appointment Radiology Jeremie Rose M.D. [address] [place] [phone] 05/10/2022 Comprehensive Visit Orthopedic Surgery Warner Graves M.D. [address] [place] [phone] 05/22/2022 Appointment Laboratory Medicine Angélica Granger P.A.-C. [address] [place] [phone] 06/05/2022 Appointment Laboratory Medicine Angélica Granger P.A.-C. [address] [place] [phone] 06/19/2022 Appointment Laboratory Medicine Angélica Granger P.A.-C. [address] [place] [phone] 07/03/2022 Appointment Laboratory Medicine Angélica Granger P.A.-C. [address] [place] [phone] 07/17/2022 Appointment Laboratory Medicine Angélica Granger P.A.-C. [address] [place] [phone] 07/31/2022 Appointment Laboratory Medicine Angélica Granger P.A.-C. [address] [place] [phone] 08/14/2022 Appointment Laboratory Medicine Angélica Granger P.A.-C. [address] [place] [phone] 08/28/2022 Appointment Laboratory Medicine Angélica Granger P.A.-C. [address] [place] [phone] documented as of this encounter Results HLA Class II SAB Antibody Screen (06/25/2021 1:00 AM ELASTIC ATTACHER OVERLOCK) [facility] Method Time Signature Class II SAB Negative Not Applicable 06/28/2021 DBB8 Overall 10:22 PM ELASTIC ATTACHER OVERLOCK Result Class II SAB 0 06/28/2021 DBB8 cPRA 10:22 PM ELASTIC ATTACHER OVERLOCK Comment: ----ADDITIONAL INFORMATION---- cPRA is calculated for either HLA class I or II (except DPB1) antibodies with a normalized MFI >2000 u sing published UNOS frequencies (http://optn.transplant.hrsa .gov). ??For convenience, all HLA antibodies with a normalized MFI >500 are listed in the specificity licea. SAB DRB1 Specificity NONE 06/28/2021 10:22 PM ELASTIC ATTACHER OVERLOCK DBB8 SAB [id number] Specificity NONE 06/28/2021 10:22 PM ELASTIC ATTACHER OVERLOCK DBB8 SAB DQB1 Specificity NONE 06/28/2021 10:22 PM ELASTIC ATTACHER OVERLOCK DBB8 SAB DPB1 Specificity NONE 06/28/2021 10:22 PM ELASTIC ATTACHER OVERLOCK DBB8 Comment: ----ADDITIONAL INFORMATION---- Method: Luminex Flow Cytometry CLIA: [id number] ??CLIA Canary Raiser: KRISTAL MIMS MD,PhD Specimen Anatomical Collection Method Collection Time Receive d Time (Source) Location / / Volume Laterality Blood (Blood, 06/25/2021 1:00 AM 06/26/19 1:32 Venous) ELASTIC ATTACHER OVERLOCK PM ELASTIC ATTACHER OVERLOCK Willis Herrera M.D. LAB HLA ORDERABLES Performing Organization Address City/State/ZIP Code Phon e Number [facility] - [address] [place] [phone] [facility] [place] [address] [place] [address] [facility] [address] [facility] HLA Class I SAB Antibody Screen (06/25/2021 1:00 AM ELASTIC ATTACHER OVERLOCK) [facility] Method Time Signature Class I SAB Negative Not Applicable 06/28/2021 DBB8 Overall 10:14 PM ELASTIC ATTACHER OVERLOCK Result Class I SAB 0 06/28/2021 DBB8 cPRA 10:14 PM ELASTIC ATTACHER OVERLOCK Comment: ----ADDITIONAL INFORMATION---- cPRA is calculated for either HLA class I or II (except DPB1) antibodies with a normalized MFI >2000 u sing published UNOS frequencies (http://optn.transplant.hrsa .gov). ??For convenience, all HLA antibodies with a normalized MFI >500 are listed in the specificity licea. SAB A Specificity NONE 06/28/2021 10:14 PM CS T DBB8 SAB B Specificity NONE 06/28/2021 10:14 PM CS T DBB8 SAB C Specificity NONE 06/28/2021 10:14 PM CS T DBB8 Comment: ----ADDITIONAL INFORMATION---- Method: Luminex Flow Cytometry CLIA: [id number] ??CLIA Canary Raiser: KRISTAL MIMS MD,PhD Specimen Anatomical Collection Method Collection Time Receive d Time (Source) Location / / Volume Laterality Blood (Blood, 06/25/2021 1:00 AM 06/26/19 1:32 Venous) ELASTIC ATTACHER OVERLOCK PM ELASTIC ATTACHER OVERLOCK Willis Herrera M.D. LAB HLA ORDERABLES Performing Organization Address City/State/ZIP Code Phon e Number [facility] - [address] [place] [address] [facility] [address] documented in this encounter Visit Diagnoses Diagnosis Chronic Kidney Disease Pretransplant Recipient Evaluation Exam documented in this encounter Additional Health Concerns Assessment Noted Time PHQ-9 Depression Total Score: 4 11/28/2020 10:17 AM CD T documented as of this encounter Care Teams Livestock Producer Relationship Specialty Start Date End Date Elsewhere, Pcp PCP - General Family Medicine 07/29/17 [facility] - Laboratory Medicine 04/12/20 [place] [address] documented as of this encounter
--- OUTSIDE RECORDS SUMMARY | 2022-04-13 12:11 | XMS_ITS | Encounter Summary ---
:1955 Author Organization [facility] Address [address] [place] [address] Care Team Providers Name Role Phone Elsewhere, Pcp Primary Care Provider Unavailable Reason for Referral Outpatient (Routine) - Closed Specialty Diagnoses / Procedures Referred By Contact Refer red To Contact Radiology Diagnoses Colitis Cytomegalovirus (HCC) Trung Plasencia P.A.-C., [facility] Procedures IR PICC Line Placement M.S. [address] [place] [phone] Referral ID Status Reason Start Date Expiration Date Visits Requ ested Visits Authorized [id number] Closed 06/13/2021 06/13/2022 1 1 LY LAWYER Reason for Visit Outpatient (Routine) - Closed Specialty Diagnoses / Procedures Referred By Contact Refer red To Contact Radiology Diagnoses Colitis Cytomegalovirus (HCC) Trung Plasencia P.A.-C., [facility] Procedures IR PICC Line Placement M.S. [address] [place] [phone] Referral ID Status Reason Start Date Expiration Date Visits Requ ested Visits Authorized [id number] Closed 06/13/2021 06/13/2022 1 1 Encounter Details Date Type Department Care Team Description 06/14/2021 Hospital Encounter Department of Trung Plasencia P.A.-C., M.SDemetrius [address] [place] [address] [phone] Colitis Cytomegalovirus Radiology in Elian Sheppard M.D. [address] [place] [phone] ([facility]) Morales Santamaria David F Jr., M.D. [address] [place] [phone] [place] [address] [place] [address] Social History Tobacco Use Types [...] More than 4 times per year 12/15/2021 worship services? Do you belong to any clubs [...] Date Recorded Male 05/16/2020 4:27 PM FAMILY LAWYER documented as of this encounter Last Filed Vital Signs Vital Sign Reading Time Taken Comments Blood Pressure 129/81 06/14/2021 11:20 AM FAMILY LAWYER Pulse 78 06/14/2021 11:20 AM FAMILY LAWYER Temperature 37 ??C (98.6 ??F) 06/14/2021 11:36 AM FAMILY LAWYER Respiratory Rate 17 06/14/2021 11:20 AM FAMILY LAWYER Oxygen Saturation 97% 06/14/2021 11:20 AM FAMILY LAWYER Inhaled Oxygen Concentration - - Weight 75 kg (165 lb 5.5 oz) 06/14/2021 9:48 AM FAMILY LAWYER Height - - Body Mass Index 24.77 06/06/2021 1:19 PM FAMILY LAWYER documented in this encounter Discharge Instructions AttachmentsThe following attachments cannot be sent through Care Everywhere. Peripherally Inserted Central Catheter (PICC) (Ukrainian)documented in this encounter Medications at Time of Discharge Medication Sig Dispensed Refills Start Date End Date acetaminophen (TYLENOL) Take 1 tablet by 0 2012 500 mg tablet mouth every 6 (six) hours as needed for fever. Pain. No more than 2000 mg per day. amoxicillin (AMOXIL) 500 Take 4 capsules by [...] care (as per agency protocol. For PICC.). valGANciclovir (Valcyte) Take 1 tablet (450 3 tablet 0 06/19/2021 450 mg tablet mg total) by mouth [...] every morning tabletIndications: before breakfast. Transplant Liver ([facility]) multivitamin tablet Take 1 tablet by 0 06/18/2013 10/12/2021 mouth daily. Maintenance mycophenolate (CELLCEPT) TAKE 1 TABLET BY 180 tablet 3 11/0610/11/2021 500 mg MOUTH TWICE DAILY tabletIndications: Transplant Liver ([facility]) NIFEdipine XL (PROCARDIA Take 3 tablets (90 270 tablet 3 07/05/2021 XL) 30 mg 24 hr tablet mg total) by mouth daily. polyethylene Drink 1st portion 4000 mL 0 06/14/202107/10 glycol-electrolytes of prep at 6 PM the (GoLYTELY) evening before. 2nd 236-22.74-6.74 -5.86 portion must be gram started 3 hours solutionIndications: before and finished Transplant Liver ([facility]), 2 hours prior to Medication Therapy Long report time Term Not Anticoagulant, Colitis Cytomegalovirus ([facility]) predniSONE (DELTASONE) 5 Take 1 tablet (5 mg 90 tablet 3 06/29/2021 mg tabletIndications: total) by mouth Transplant Liver ([facility]), daily. 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 Term Not Anticoagulant UNABLE TO FIND by nasal 0 10/12/2021 (alternating) route 2 (two) times a day. Azelastine 1mg to Sinus Rinse twice daily. [facility] documented as of this encounter Procedure Notes Santana Nielsen Jr., M.D. - 06/14/2021 11:19 AM CST PATIENT DISPOSITION Return to Outpatient Unit for recovery. Discharge patient when discharge criteria met. POST-PROCEDURE DIAGNOSIS CMV colitis PROCEDURE PERFORMED AND DESCRIPTION Left IJ 4 F single lumen tunneled PICC placement, ready for use. PROCEDURE DETAILS See Radiology Report SPECIMENS REMOVED None FINDINGS See report PRIMARY PROCEDURALIST Valarie Nielsen COMPLICATIONS None. DRAINS None. IMPLANTS Reference implant document. ANESTHESIA Local Anesthesia. FLUIDS None ESTIMATED BLOOD LOSS <5ml CURRENT MEDICATIONS No Medication Changes FOLLOW-UP LETTER None. MAY RETURN TO WORK Not applicable PATIENT INSTRUCTIONS No return appointment LY LAWYER documented in this encounter Plan of Treatment Upcoming Encounters Date Type Specialty Care Team Description 04/24/2022 Appointment Laboratory Medicine Angélica Granger P.A.-C. [address] [place] [phone] 04/25/2022 Office Visit Otorhinolaryngology Dex Matta, RAMONA, C.N.P., M.S.N. [address] [place] [address] [phone] 05/08/2022 Appointment Laboratory Medicine Angélica Granger P.A.-C. [address] [place] [phone] 05/08/2022 Clinical Admitting/Central Communication Scheduling 05/10/2022 Appointment Radiology Jeermie Rose M.D. [address] [place] [phone] 05/10/2022 Comprehensive Visit Orthopedic Surgery Warner Graves M.D. [address] [place] [address] [phone] 05/22/2022 Appointment Laboratory Medicine Angélica Granger P.A.-C. [address] [place] [phone] 06/05/2022 Appointment Laboratory Medicine Angélica Granger P.A.-C. [address] [place] [phone] 06/19/2022 Appointment Laboratory Medicine Angélica Granger P.A.-C. [address] [place] [address] [phone] 07/03/2022 Appointment Laboratory Medicine Angélica Granger P.A.-C. [address] [place] [phone] 07/17/2022 Appointment Laboratory Medicine Angélica Granger P.A.-C. [address] [place] [phone] 07/31/2022 Appointment Laboratory Medicine Angélica Granger P.A.-C. [address] [place] [phone] 08/14/2022 Appointment Laboratory Medicine Angélica Granger P.A.-C. [address] [place] [phone] 08/28/2022 Appointment Laboratory Medicine Angélica Granger P.A.-C. [address] [place] [address] [phone] documented as of this encounter Procedures Procedure Name Priority Date/Time Associated Diagnosis Comme nts IR PICC LINE RAD - Routine 06/14/2021 11:24 Colitis Results fo r PLACEMENT (most inpatients AM FAMILY LAWYER Cytomegalovirus (HCC) th is procedure and all are in the outpatients) results section. documented in this encounter Results IR PICC Line Placement (06/14/2021 11:24 AM FAMILY LAWYER) Anatomical Region Laterality Modality Chest, Pelvis, Abdomen, Vascular Interventional RST LOS, N/A X-Ray Angiography Vascular Interventional ARZ LOS, Vascular Interventional FLA LOS Specimen (Source) Anatomical Collection Method Collection Time Re ceived Time Location / / Volume Laterality 06/14/2021 2:30 PM FAMILY LAWYER Impressions 06/14/2021 2:32 PM FAMILY LAWYER Placement of a tunneled left IJV 4 Thai single lumen PowerPICC SOLO. Ready for immediate use. EP Narrative 06/14/2021 2:32 PM FAMILY LAWYER EXAM: IR PICC LINE PLACEMENT CLINICAL HISTORY: [...] the left anterior chest wall. A 4 Thai single lumen PowerPICC SOLO was t unneled [...] the left anterior chest wall. A 4 Thai single lumen PowerPICC SOLO was t unneled [...] Ready for immediate use. EP Trung Plasencia P.A.-C. M.S. IMG IR PROCEDURES documented in this encounter Visit Diagnoses Diagnosis Colitis Cytomegalovirus (HCC) documented in this encounter Administered Medications Inactive Administered Medications - up to 3 most recent administrations Medication Order MAR Action Action Date Dose Rate Site fentaNYL injection 25 mcg (SUBLIMAZE) 25 mcg, intravenous, Every 2 min PRN, se dation, or pain before and during sedation procedure, Starting on Shraddha 06/14/21 at 0 950, Intraprocedure (RAD), Administer over 1 minute immediately prior to the procedure. May repea t every 2 minutes to a maximum of 200 mcg, until pain score of 3 or less from baseline. Do not give if respiratory rate is less than 8 breaths/minute flumazeniL injection 0.2 mg (ROMAZICON) 0.2 mg, intravenous, Once as needed, rev ersal, Starting on Shraddha 06/14/21 at 0950, For 1 dose, Intraprocedure (RAD), Admini ster once if patient has a RASS score of -4, -5 and has a respiratory rate less than 8 breaths/ minute. lidocaine-sodium bicarbonate (buffered) Given 06/14/2021 11:00 A M FAMILY LAWYER 15 mL 0.9%-8.4% injection infiltration, Code/trauma/sedation medication, Starting on Shraddha 06/14/21 at 1100 midazolam (PF) injection 0.25 mg (VERSED ) 0.25 mg, intravenous, Every 2 min PRN, s edation, RASS -2, Starting on Shraddha 06/14/21 at 0950, Intraprocedure (RAD), May repea t every 2 minutes to a maximum of 5 mg. Do not give if respiratory rate is less than 8 breaths/mi nute. midazolam (PF) injection 0.5 mg (VERSED) 0.5 mg, intravenous, Once as needed, sed ation, Starting on Shraddha 06/14/21 at 0950, For 1 dose, Intraprocedure (RAD) midazolam (PF) injection 0.5 mg (VERSED) 0.5 mg, intravenous, Every 2 min PRN, se dation, RASS -1, Starting on Shraddha 21 at 0950, Intraprocedure (RAD), May repea t every 2 minutes for a maximum of 5 mg. Do not give if respiratory rate is less than 8 breaths/mi nute. midazolam (PF) injection 1 mg (VERSED) 1 mg, intravenous, Every 2 min PRN, clay tion, RASS 0, Starting on Shraddha 06/14/21 at 0950, Intraprocedure (RAD), May repeat e very 2 minutes for a maximum of 5 mg. Do not give if respiratory rate is less than 8 breaths/mi nute. naloxone injection 0.2 mg (NARCAN) 0.2 mg, intravenous, Once as needed, respiratory depre ssion, Starting on Shraddha 06/14/21 at 0950, For 1 dose, Intraproce dure (RAD), Administer once if patient has a RASS score of -4, -5 and has a respiratory rate less than 8 breaths/minute. sodium chloride 0.9 % injection 10 mL 10 mL, intravenous, As needed, line care, Starting on Shraddha 06/14/21 at 0943, Intraprocedure (RAD), Peripheral Intrave nous Catheter and Rapid Infusion Catheter, prior to blood sampling, post blood transfusion or pos t blood sampling sodium chloride 0.9 % injection 3 mL 3 mL, intravenous, As needed, line care, Starting on T 06/14/21 at 0943, Intraprocedure (RAD), Prior to and following infusion and between multiple consecutive infusions: sodium chloride 0.9 % injection sodium chloride 0.9 % injection 3 mL 3 mL, intravenous, Every 12 hours schedu led, First dose on Shraddha 06/14/21 at 2100, Intraprocedure (RAD), Peripheral Intrave nous Catheter and Rapid Infusion Catheter, when no infusion to maintain patency documented in this encounter Active and Recently Administered Medications Times are shown in FAMILY LAWYER. Scheduled Medication Order 06/12/2021 06/13/2021 06/14/2021 sodium chloride 0.9 % injection 3 mL 3 mL, intravenous, Every 12 hours schedu led, First dose on Shraddha 06/14/21 at 2100, Intraprocedure (RAD), Peripheral Intravenous Catheter and Rapid Infusion Catheter, when no infusion to maintain patency PRN Medication Order 06/12/2021 06/13/2021 06/14/2021 fentaNYL injection 25 mcg (SUBLIMAZE) 25 mcg, intravenous, Every 2 min PRN, se dation, or pain before and during sedation procedure, Starting on Shraddha 06/14/21 at 0950, Intraprocedure (RAD), Administer over 1 minute immediately prior to the pr ocedure. May repeat every 2 minutes to a maximum of 200 mcg, until pain score of 3 or less from baseline. Do not give if respiratory rate is less than 8 breaths/minute flumazeniL injection 0.2 mg (ROMAZICON) 0.2 mg, intravenous, Once as needed, rev ersal, Starting on Shraddha 06/14/21 at 0950, For 1 dose, Intraprocedure (RAD), Administer once if patient has a RASS score of -4, -5 and has a respiratory rate less than 8 breaths/minute. lidocaine-sodium bicarbonate (buffered) 0.9%-8.4% injection (COM PLETED) 1100 (Given - Provider: Elian Sheppard M.D.) infiltration, Code/trauma/sedation medication, Startin g on Shraddha 06/14/21 at 1100 midazolam (PF) injection 0.25 mg (VERSED) 0.25 mg, intravenous, Every 2 min PRN, s edation, RASS -2, Starting on Shraddha 06/14/21 at 0950, Intraprocedure (RAD), May repeat every 2 minutes to a maximum of 5 mg. Do not give if respiratory rate is less than 8 breaths/minute. midazolam (PF) injection 0.5 mg (VERSED) 0.5 mg, intravenous, Once as needed, sed ation, Starting on Shraddha 06/14/21 at 0950, For 1 dose, Intraprocedure (RAD) midazolam (PF) injection 0.5 mg (VERSED) 0.5 mg, intravenous, Every 2 min PRN, se dation, RASS -1, Starting on Shraddha 06/14/21 at 0950, Intraprocedure (RAD), May repeat every 2 minutes for a maximum of 5 mg. Do not give if respiratory rate is less than 8 breaths/minute. midazolam (PF) injection 1 mg (VERSED) 1 mg, intravenous, Every 2 min PRN, clay tion, RASS 0, Starting on Shraddha 06/14/21 at 0950, Intraprocedure (RAD), May repeat every 2 minutes for a maximum of 5 mg. Do not give if respiratory rate is less than 8 breaths/minute. naloxone injection 0.2 mg (NARCAN) 0.2 mg, intravenous, Once as needed, res piratory depression, Starting on Shraddha 06/14/21 at 0950, For 1 dose, Intraprocedure (RAD), Administer once if patient has a RASS score of -4, -5 and has a respiratory rate less than 8 breaths/minute. sodium chloride 0.9 % injection 10 mL 10 mL, intravenous, As needed, line care , Starting on Shraddha 06/14/21 at 0943, Intraprocedure (RAD), Peripheral Intravenous Catheter and Rapid Infusion Catheter, prior to blood sampling, post blood transfusion or post blood sampling sodium chloride 0.9 % injection 3 mL 3 mL, intravenous, As needed, line care, Starting on Shraddha 06/14/21 at 0943, Intraprocedure (RAD), Prior to and following infusion and between multiple consecutive infusions: sodium chloride 0.9 % injection documented in this encounter Additional Health Concerns Assessment Noted Time PHQ-9 Depression Total Score: 4 11/28/2020 10:17 AM CD T documented as of this encounter Care Teams Rating Officer Relationship Specialty Start Date End Date Elsewhere, Pcp PCP - General Family Medicine 07/29/17 [facility] - Laboratory Medicine 04/12/20 [place] [id number] documented as of this encounter
--- OUTSIDE RECORDS SUMMARY | 2022-04-13 12:11 | XMS_ITS | Encounter Summary ---
:1955 Author Organization [facility] Address [address] [place] [id number] Care Team Providers Name Role Phone Elsewhere, Pcp Primary Care Provider Unavailable Reason for Visit Outpatient (Routine) - Closed Specialty Diagnoses / Procedures Referred By Contact Refer red To Contact Nephrology and Otoniel Norwood [facility] Anatoliy Rees, DDemetriusODemetrius [address] [place] [phone] Referral ID Status Reason Start Date Expiration Date Visits Requ ested Visits Authorized [id number] Closed 06/04/2021 06/04/2022 1 1 Encounter Details Date Type Department Care Team Description 06/12/2021 Virtual Visit Division of Nephrology Otoniel Norwood Jr., D.O. [address] [place] [address] [phone] Chronic Kidney and Hypertension in [facility] [address] [place] [phone] Disease Stage 4 [place], [place] Glomerular Filtration [address] [place] [address] Rate 15-29 ([facility] [place] [phone] Social History Tobacco Use Types Packs/Day Years [...] at Date Recorded Male 05/16/2020 4:27 PM ULTRASONIC TESTER documented as of this encounter Progress Notes Maritza Aggarwal, RDemetriusN. - 06/12/2021 11:[address] Otoniel Norwood ??[phone] CHIEF COMPLAINT/PURPOSE OF VISIT REASON FOR REFERRAL: ??Needs permanent access for hemodialysis HISTORY OF PRESENT ILLNESS ? ACCESS: ??Palindrome Catheter ?Date placed - 05/31/21 ?Provider - Dr. Pastor LOCATION OF ACCESS: ??Right internal jugular ? PERTINENT PROCEDURAL HISTORY: ? 65 y.o., male, referred by Dr. Norwood for education and evaluation for permanent vascular access for dialysis. His kidney disease is secondary to hypertension and left renal artery stenosis status post stenting. ??Patient reports that with his past liver transplants, he believes the antirejection meds were also hard on his kidneys. He initiated hemodialysis on06/01/21. ??He dialyzes at [facility] on a Friday, Friday and Friday schedule. Significant Medical History: ?? 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 Rhinosinusitis Chronic, Anemia. PACEMAKER: ??No ?? DIABETES: ??No ?? ANTICOAGULATION: ? Takes 81mg Aspirin but no other anticoagulation medications. ?? LABORATORY RESULTS: ? Current Labs in [facility] from 05/29/21. BMI: ?Body mass index is 24.77 kg/m??. ?? VEIN MAPPING: ?Scheduled for 06/21/21 ECHOCARDIOGRAM: ? 11/28/20 - EF response from 60 % at rest to 70 % at peak stress. PHYSICAL EXAMINATION Patient is left handed handed. ??He has no hand complaints aside from stating that he is starting toget neuropathy but feels his hands are working fine. ??He does not recall ever having a PICC line. IMPRESSION/REPORT/PLAN ?I reviewed the following booklets with the patient via phone: Hemodialysis Catheters ([id number]), Hemodialysis Fistula and Graft ([id number]). He received an red/orange Save your Vein bracelet in his mail packet. Discussed with the patient if they were interested in PD. All questions were answered. Surgeon: Patient will be seen by Dr. Shafer on 06/21/21 Plan: Will be determined at the surgical consult KACIE: ??Referring provider has been sent a message to complete a KACIE on this patient in the near future to clear the patient for surgery. ASONIC TESTER documented in this encounter Plan of Treatment Upcoming Encounters Date Type Specialty Care Team Description 04/24/2022 Appointment Laboratory Medicine Angélica Granger P.A.-C. [address] [place] [phone] 04/25/2022 Office Visit Otorhinolaryngology Dex Matta APRN, C.N.P., M.S.N. [address] [place] [phone] 05/08/2022 Appointment Laboratory Medicine Angélica Granger P.A.-C. [address] [place] [phone] 05/08/2022 Clinical Admitting/Central Communication Scheduling 05/10/2022 Appointment Radiology Jeremie Rose M.D. [address] [place] [phone] 05/10/2022 Comprehensive Visit Orthopedic Surgery Warner Graves M.D. [address] [place] [phone] 05/22/2022 Appointment Laboratory Medicine Angélica Granger P.A.-C. [address] [place] [phone] 06/05/2022 Appointment Laboratory Medicine Angélica Granger P.A.-C. [address] [place] [phone] 06/19/2022 Appointment Laboratory Medicine Angélica Granger P.A.-C. [address] [place] [phone] 07/03/2022 Appointment Laboratory Medicine Angélica Granger P.A.-C. [address] [place] [phone] 07/17/2022 Appointment Laboratory Medicine Angélica Granger P.A.-C. [address] [place] [phone] 07/31/2022 Appointment Laboratory Medicine Angélica Granger P.A.-C. [address] [place] [phone] 08/14/2022 Appointment Laboratory Medicine Angélica Granger P.A.-C. [address] [place] [phone] 08/28/2022 Appointment Laboratory Medicine Angélica Granger P.A.-C. [address] [place] [phone] documented as of this encounter Visit Diagnoses Diagnosis Chronic Kidney Disease Stage 4 Glomerula r Filtration Rate 15-29 (HCC) documented in this encounter Additional Health Concerns Assessment Noted Time PHQ-9 Depression Total Score: 4 11/28/2020 10:17 AM CD T documented as of this encounter Care Teams Copy Room Technician Relationship Specialty Start Date End Date Elsewhere, Pcp PCP - General Family Medicine 07/29/17 [facility] - Laboratory Medicine 04/12/[address] [phone] documented as of this encounter
--- OUTSIDE RECORDS SUMMARY | 2022-04-13 12:11 | XMS_ITS | Encounter Summary ---
:1955 Author Organization [facility] Address [address] [place] [address] Care Team Providers Name Role Phone Elsewhere, Pcp Primary Care Provider Unavailable Reason for Visit Transplant (Routine) - Closed Specialty Diagnoses / Procedures Referred By Contact Refer red To Contact Transplant Surgery / Diagnoses Transplant Liver (HCC) Medication Therapy Residential Not Anticoagulant Chronic [facility] [address] [place] [phone] Referral ID Status Reason Start Date Expiration Date Visits Requ ested Visits Authorized [id number] Closed 06/05/2021 06/05/2022 1 1 Encounter Details Date Type Department Care Team Description 06/12/2021 Office Visit Yovani Khan MMaury [address] [place] [address] [phone] Colitis Cytomegalovirus (HCC) (Primary D x); [facility] Trung Plasencia P.A.-C., M.S. 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 Chronic Cough; [address] [facility] Rhinosinusitis Chronic; [place], [place] [phone] Social History Tobacco Use Types Packs/Day [...] at Date Recorded Male 05/16/2020 4:27 PM BROOMMAKING SUPERVISOR documented as of this encounter Last Filed Vital Signs Vital Sign Reading Time Taken Comments Blood Pressure - - Pulse - - Temperature 36.1 ??C (97 ??F) 06/12/2021 1:02 PM BROOMMAKING SUPERVISOR Respiratory Rate - - Oxygen Saturation - - Inhaled Oxygen Concentration - - Weight 73.8 kg (162 lb 11.2 oz) 06/12/2021 1:02 PM BROOMMAKING SUPERVISOR Height - - Body Mass Index 24.38 06/06/2021 1:19 PM BROOMMAKING SUPERVISOR documented in this encounter Progress Notes Trung Plasencia P.A.-C., M.S. - 06/12/2021 2:00 PM CST DEMOGRAPHIC INFORMATION Patient Name: Bruce Singh Clinic Number: [id number] Age: 65 y.o. Birthdate: 1955 Sex: male Service Date/Time: 06/12/21 9:55 AM BROOMMAKING SUPERVISOR TRANSPLANT INFECTIOUS DISEASES SERVICE - Progress Note SUBJECTIVE REFERRAL SOURCE Leonid Gonzalez M.D. 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 Small bowel showed active ileitis with focal erosion but CMV immunostaining was negative. HISTORY OF PRESENT ILLNESS Mr. Singh is a 65 year old gentleman from [place], [place] whom I know from prior clinic [...] likely occurs mostly at night. CT chest today shows waxing and waning bilateral infectious/inflammatory bronchiolitis with overall progression over time. He has chronic rhinosinusitis with post nasal drip and I suspect he is aspirating at night. Sputum has grown Serratia Marcescens on multiple occasions with the most recent being May 23, 2021. He has not been treated for this he tells me. He may benefit from sinus surgery andhe will touch base with Dr. Pena in ENT to schedule a follow- up visit. He is also going to be seeing an outside Floor Runner in the [facility] right after the first of the year. I called and spoke to Padmini Barry from Nephrology and she has kindly agreed to see if Mr. Singh can receive IV ganciclovir at [facility] after his dialysis. The problem is that he receives dialysis in the afternoon and I am not sure how late the infusion therapy center is open there until. Coming down here to [facility] would be a very long trip for him three times weekly. I suppose he may be able to qualify for home infusion. ALLERGIES/CONTRAINDICATIONS Allergies Allergen Reactions ??? Citalopram Other [...] transplant medications ??? Erythromycin Other (see comments) OBJECTIVE VITAL SIGNS Temperature: 36.1 C. Weight: 73.8 kg. PHYSICAL EXAMINATION General: Awake and alert, oriented x 3, in no acute distress. Not toxic in appearance. Respirations are unlabored at rest. Coughing intermittently due to post nasal drip. Sinus congestion. Head: Atraumatic/normocephalic. Eyes: Sclerae nonicteric. Conjunctivae are noninjected. Extraocular movements intact. Lungs: Clear to auscultation bilaterally. No adventitious sounds. Extremities: No edema. Skin: No acute rashes or lesions. Mentation: Normal mood and affect. Gait: Normal. Ambulates without difficulty or assistance. LINES/CATHETERS: Tunneled dialysis catheter right upper chest. Placed May 31, 2021. OTHER DEVICES: None. DIAGNOSTICS LABS: I have reviewed the patient's current pertinent laboratory, imaging, and other diagnostic studies which are available in EPIC and [facility] respectively. Lab Results Component Value Date HGB 8.1 (L) 06/12/2021 WBC 4.0 06/12/2021 LYMPHSABS 0.35 (L) 05/29/2021 NEUTROPHILS 2.37 05/29/2021 EOSABS 0.09 05/29/2021 PLT 184 06/12/2021 NA 131 (L) 06/12/2021 KSERUM 3.9 06/12/2021 CL 97 (L) 06/12/2021 BICARB 26 06/12/2021 CREATININE 2.90 (H) 06/12/2021 EGFRNONBLKAA 22 (L) 06/12/2021 ALT 26 06/12/2021 AST 22 06/12/2021 ALKPHOS 121 06/12/2021 BILITOT 0.3 06/12/2021 INR 1.1 05/23/2021 QTCINT 414 05/24/2021 MICROBIOLOGY May 29, 2021 QuantiFERON-TB gold Plus: Negative. May 29, 2021 hepatitis B surface antigen: Nonreactive. May 24, 2021 stool GI pathogen panel by PCR: Positive Clostridium difficile toxin and EPEC. DIAGNOSTIC IMAGING June 12, 2021 CT chest: PATHOLOGY June 06, 2021: Colon biopsy: CMV colitis identified. Moderate active colitis with numerous CMV positive cells on immunostain. Small bowel showed active ileitis with focal erosion but CMV immunostaining was negative. DISCUSSION Mr. Singh has two issues to address. First is the finding of CMV colitis on colon biopsies obtained on colonoscopy done June 06, 2021. For this I would favor starting IV ganciclovir induction, 1.25 mg/kg (90 mg) three times weekly after dialysis on dialysis days. We will check a Qn CMV PCR today, if this is positive we can monitor QN CMV PCR weekly. If this is negative however, we will need to repeat a colonoscopy in about 4 weeks on therapy to see if the ulcerations have resolved and CMV immunostaining is negative. I can see him back in about 5 weeks in clinic after the repeat colonoscopy. Arrangements are being made for him to receive IV ganciclovir in [facility]. Until such time, I have prescribed him valganciclovir 450 mg he can take three times weekly after dialysis on dialysis days. Once he starts IV ganciclovir, he knows to stop the Valganciclovir. The second issue is a long-standing problem of chronic rhinosinusitis with post nasal drip and chronic bronchiolitis and aspiration. He has a chronic cough. Sputum has grown Serratia Marcescens on multiple occasions. The organism is MDR. It is susceptible to quinolones but he has a history of tendonitis so this precludes their use. It is susceptible to TMP/SMZ and I have prescribed Bactrim SS once daily to take after dialysis on dialysis days to see if this helps him. Treat for 2 weeks. While on Bactrim, due to his history of recurrent Clostridioides infection, I have prescribed oral vancomycin prophylaxis 125 mg twice daily for 21 days. 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 #[address] chest with lower lobe nodularities CT chest today shows bilateral infectious/inflammatory bronchiolitis with waxing and waning changes but overall progression. SUGGESTIONS/RECOMMENDATIONS 1. Start IV ganciclovir 1.25 mg/kg (90 mg) three times weekly. On dialysis days give after dialysis. 2. Qn CMV PCR today, ordered. 3. I would suggest giving IV ganciclovir for one month and then reassess for resolution of symptoms and repeat Colonoscopy to ensure resolution of ulcerations. 4. Weekly CBC/differential, Qn CMV PCR while on IV ganciclovir. 5. Return visit with me in about 5 weeks after repeat colonoscopy with biopsies. 6. Bactrim SS one tablet once daily after dialysis on dialysis days for treatment of Serratia Marcescens bronchitis/bronchiolitis. Treat for 14 days. 7. Oral vancomycin 125 mg twice daily for C. Difficile prophylaxis x 21 days (7 days after stopping Bactrim). 8. If unable to use current tunneled dialysis catheter for Ganciclovir infusion, he will need a dedicated PICC line placed. 9. Until IV ganciclovir has been arranged, he will start valganciclovir 450 mg by mouth three times weekly after dialysis on dialysis days. He knows to stop once IV ganciclovir has started. PATIENT EDUCATION Ready to learn, no apparent learning barriers were identified; learning preferences include listening. Explained diagnosis and treatment plan; patient expressed understanding of the content. Case discussed with Padmini Barry, THERAPY SITE COORDINATOR, ANTI AIR WARFARE OPERATIONS OFFICER, DNP from Nephrology Dialysis. Thank you for the opportunity to participate in the care of Mr. Singh. Miri Gonzalez.Marie., M.S. ADDENDUM June 13, 2021 Mr. Singh will receive IV ganciclovir 90 mg three times weekly after dialysis on dialysis days at home through [facility]fusion [facility] services beginning June 15, 2021. He will have a tunneled PICC placed by IR tomorrow. Prescriptions for Ganciclovir and PICC flushes faxed to [facility]. Trung Plasencia P.A.-C., M.S. MMAKING SUPERVISOR documented in this encounter Plan of Treatment Upcoming Encounters Date Type Specialty Care Team Description 04/24/2022 Appointment Laboratory Medicine Angélica Granger P.A.-C. [address] [place] [phone] 04/25/2022 Office Visit Otorhinolaryngology Dex Matta APRN, C.N.P., M.S.N. [address] [place] [phone] 05/08/2022 Appointment Laboratory Medicine Angélica Granger P.A.-C. [address] [place] [phone] 05/08/2022 Clinical Admitting/Central Communication Scheduling 05/10/2022 Appointment Radiology Jeremie Rose M.D. [address] [place] [phone] 05/10/2022 Comprehensive Visit Orthopedic Surgery Warner Graves M.D. [address] [place] [phone] 05/22/2022 Appointment Laboratory Medicine Angélica Granger P.A.-C. [address] [place] [address] [phone] 06/05/2022 Appointment Laboratory Medicine Angélica Granger P.A.-C. [address] [place] [address] [phone] 06/19/2022 Appointment Laboratory Medicine Angélica Granger P.A.-C. [address] [place] [phone] 07/03/2022 Appointment Laboratory Medicine Angélica Granger P.A.-C. [address] [place] [phone] 07/17/2022 Appointment Laboratory Medicine Angélica Granger P.A.-C. [address] [place] [phone] 07/31/2022 Appointment Laboratory Medicine Angélica Granger P.A.-C. [address] [place] [phone] 08/14/2022 Appointment Laboratory Medicine Angélica Granger P.A.-C. [address] [place] [phone] 08/28/2022 Appointment Laboratory Medicine Angélica Granger P.A.-C. [address] [place] [phone] documented as of this encounter Results (ABNORMAL) CMV DNA Detect / Quant, Plasma (06/12/2021 2:02 PM BROOMMAKING SUPERVISOR) [facility] Method Time Signature CMV DNA 980 (A) Undetected 06/13/2021 [facility] Detect/Quant, IU/mL 8:32 PM BROOMMAKING SUPERVISOR P Comment: Result in log IU/mL is 2.99. ----ADDITIONAL INFORMATION---- The quantification range of this assay i s 35 to 10,000,000 IU/mL (1.54 log to 7.00 log IU/mL). Testing was performed u sing the tika CMV test ([employer] with the [employer]ika [employer] System. Specimen Anatomical Collection Method Collection Time Receive d Time (Source) Location / / Volume Laterality Blood (Blood, 06/12/2021 2:02 PM 06/12/20 7:07 Venous) BROOMMAKING SUPERVISOR PM BROOMMAKING SUPERVISOR Trung Plasencia P.A.-C., M.S. LAB MICROBIOLOGY - BLOOD O RDERABLES Performing Organization Address City/State/ZIP Code Phon e Number [facility] [address] [place], [place] [address] [place] [address] [place] [address] Laboratory Medicine and Pathology [address] [place] documented in this encounter Visit Diagnoses Diagnosis Colitis Cytomegalovirus (HCC) - Primary Bronchiolitis Transplant Liver (HCC) Medication Therapy Sewer Not Anticoa gulant Chronic Cough Rhinosinusitis Chronic Drip Post Nasal documented in this encounter Additional Health Concerns Assessment Noted Time PHQ-9 Depression Total Score: 4 11/28/2020 10:17 AM CD T documented as of this encounter Care Teams Apprentice Jockey Relationship Specialty Start Date End Date Elsewhere, Pcp PCP - General Family Medicine 07/29/17 [facility] - Laboratory Medicine 04/12/[address] [address] documented as of this encounter
--- OUTSIDE RECORDS SUMMARY | 2022-04-13 12:11 | XMS_ITS | Encounter Summary ---
:1955 Author Organization [facility] Address [address] [place] [address] Care Team Providers Name Role Phone Elsewhere, Pcp Primary Care Provider Unavailable Reason for Visit Episode Based Medications (Routine) - Authorized Specialty Diagnoses / Procedures Referred By Contact Refer red To Contact Diagnoses 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) Elissa Wilcox, RAMONA, Rsharsh Dls Tacho Procedures Adult Outpatient Hemodialysis C.N.P. [address] [place] [address] [place], [place] Phone: [phone] Referral ID Status Reason Start Date Expiration Date Visits V isits Requested Authorized [id number] Authorized 06/01/2021 06/01/2022 99 99 Encounter Details Date Type Department Care Team Description 06/06/2021 Hospital Encounter Division of Elissa Wilcox, Chronic F ailure Renal Nephrology and RAMONA, C.N.P. 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 budesonide (Pulmicort) Mix 1 ampule in 120 [...] mouth Transplant Liver (HCC), daily. Medication Therapy Salesforce Administrator Not Anticoagulant Spiriva Respimat 2.5 INHALE 2 PUFFS BY 4 g 0 01/09/20 21 07/26/2021 mcg/actuation inhaler MOUTH DAILY tacrolimus (PROGRAF) Take 2 capsules (1 360 capsule 3 202007/16/2021 0.5 mg mg total) by mouth 2 capsuleIndications: (two) times a day. Transplant Liver (HCC), Medication Therapy Penitentiary Not Anticoagulant UNABLE TO FIND by nasal 0 10/12/2021 (alternating) route 2 (two) times a day. Azelastine 1mg to Sinus Rinse twice daily. [facility] documented as 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 [address] [place] [phone] 04/25/2022 Office Visit Otorhinolaryngology Dex Matta APRN, C.N.P., M.S.N. [address] [place] [phone] 05/08/2022 Appointment Laboratory Medicine Angélica Granger P.A.-C. [address] [place] [phone] 05/08/2022 Clinical Admitting/Central Communication Scheduling 05/10/2022 Appointment Radiology Jeremie Rose M.D. [address] [place] [phone] 05/10/2022 Comprehensive Visit Orthopedic Surgery Warner Graves M.D. [address] [place] [phone] 05/22/2022 Appointment Laboratory Medicine Angélica Granger P.A.-C. [address] [place] [phone] 06/05/2022 Appointment Laboratory Medicine Angélica Granger P.A.-C. [address] [place] [address] [phone] 06/19/2022 Appointment Laboratory Medicine Angélica Granger P.A.-C. [address] [place] [phone] 07/03/2022 Appointment Laboratory Medicine Angélica Granger P.A.-C. [address] [place] [phone] 07/17/2022 Appointment Laboratory Medicine Angélica Granger P.A.-C. [address] [place] [phone] 07/31/2022 Appointment Laboratory Medicine Angélica Granger P.A.-C. [address] [place] [phone] 08/14/2022 Appointment Laboratory Medicine Angélica Granger P.A.-C. [address] [place] [phone] 08/28/2022 Appointment Laboratory Medicine Angélica Granger P.A.-C. [address] [place] [phone] Scheduled Orders Name Type Priority Associated Diagnoses Order S jonathon Hemodialysis Outpatient; Dialysis Routine Chronic Failure Renal Once for 1 Occurrences End Stage Renal starting Disease Dialysis until 06/06 Dependent (HCC) documented as of this encounter Visit Diagnoses Diagnosis Chronic Failure Renal End Stage Renal Di sease Dialysis Dependent (HCC) - Primary documented in this encounter Administered Medications Inactive Administered Medications - up to 3 most recent administrations Medication Order MAR Action Action Date Dose Rate Site epoetin michelle-epbx injection Given 06/06/2021 9:54 AM FINISHING MANAGER 3,000 U nits Other 3,000 Units (RETACRIT) 3,000 Units, subcutaneous, Once, On Fri06/06/21 at 0830, For 1 dose, Indications: ESRD on Dialysis NaCl 0.9 % bolus 1-1,000 mL New Bag 06/06/2021 12:32 PM FINISHING MANAGER 220 mL 60 mL/hr 1-1,000 mL, intravenous, at 1-1,000 mL/hr, Administer over 1 Hours, As needed, for dialysis including prime, rinse back, laborer pipeline, flush, or hypotension, Starting on Fri06/06/21 at 0819, For prime and rinse back: Prime to volume of circuit and rinse back. May repeat until line clear as determined by machine or nurse assessment. For Hypotension: Administer 100 mL over 1 minute PRN. If no relief of symptoms within 5 minutes, may repeat 100 mL dose 1 minute apart for a total of 4 doses (400 mL 0.9% NaCL). Notify provider after administering 400 mL of 0.9% NaCL. Bolus from Bag 06/06/2021 9:55 AM FINISHING MANAGER 50 mL 100 mL/hr New Bag 06/06/2021 8:23 AM FINISHING MANAGER 220 mL 60 mL/hr documented in this encounter Additional Health Concerns Assessment Noted Time PHQ-9 Depression Total Score: 4 11/28/2020 10:17 AM CD T documented as of this encounter Care Teams Lead Front End Developer Relationship Specialty Start Date End Date Elsewhere, Pcp PCP - General Family Medicine 07/29/17 [facility] - Laboratory Medicine 04/12/20 [place] [phone] documented as of this encounter
--- OUTSIDE RECORDS SUMMARY | 2022-04-13 12:11 | XMS_ITS | Encounter Summary ---
:1955 Author Organization [facility] Address [address] [place] [address] Care Team Providers Name Role Phone Elsewhere, Pcp Primary Care Provider Unavailable Encounter Details Date Type Department Care Team Description 06/06/2021 Orders Only Division of Nephrology and Asha, Padmini Hernandez, Hypertension, Evangelical RAMONA, C.N.P., D.N .P. [place], in [place], [place] [address] [place] [phone] Social History Tobacco Use Types Packs/Day [...] or relatives? How often do you attend jehovah's witness or More than 4 times per year 12/15/2021 nondenominational services? 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 [address] [place] [phone] 04/25/2022 Office Visit Otorhinolaryngology Dex Matta APRN, C.N.P., M.S.N. [address] [place] [phone] 05/08/2022 Appointment Laboratory Medicine Angélica Granger P.A.-C. [address] [place] [address] [phone] 05/08/2022 Clinical Admitting/Central Communication Scheduling 05/10/2022 Appointment Radiology Jeremie Rose M.D. [address] [place] [phone] 05/10/2022 Comprehensive Visit Orthopedic Surgery Warner Graves M.D. [address] [place] [phone] 05/22/2022 Appointment Laboratory Medicine Angélica Granger P.A.-C. [address] [place] [phone] 06/05/2022 Appointment Laboratory Medicine Angélica Granger P.A.-C. [address] [place] [phone] 06/19/2022 Appointment Laboratory Medicine Angélica Granger P.A.-C. [address] [place] [phone] 07/03/2022 Appointment Laboratory Medicine Angélica Granger P.A.-C. [address] [place] [phone] 07/17/2022 Appointment Laboratory Medicine Angélica Granegr P.A.-C. [address] [place] [phone] 07/31/2022 Appointment Laboratory Medicine Angélica Granger P.A.-C. [address] [place] [phone] 08/14/2022 Appointment Laboratory Medicine Angélica Granger P.A.-C. [address] [place] [phone] 08/28/2022 Appointment Laboratory Medicine Angélica Granger P.A.-C. [address] [place] [phone] documented as of this encounter Visit Diagnoses Not on filedocumented in this encounter Additional Health Concerns Assessment Noted Time PHQ-9 Depression Total Score: 4 11/28/2020 10:17 AM CD T documented as of this encounter Care Teams Personal Care Aide Relationship Specialty Start Date End Date Elsewhere, Pcp PCP - General Family Medicine 07/29/17 [facility] - Laboratory Medicine 04/12/[address] [address] documented as of this encounter
--- OUTSIDE RECORDS SUMMARY | 2022-04-13 12:11 | XMS_ITS | Encounter Summary ---
:1955 Author Organization [facility] Address [address] [place] [address] Care Team Providers Name Role Phone Elsewhere, Pcp Primary Care Provider Unavailable Encounter Details Date Type Department Care Team Description 06/07/2021 Hospital Encounter Department of Willis Herrera Chro nic Kidney Disease; Laboratory Medicine M.DDemetrius Pretransplant Recipient Evaluation Exam and Pathology, [address] [place] [address] in [facility] [phone] [place] [phone] [place] [address] (Work) [place], [place] [phone] (Fax) [phone] Social History Tobacco Use Types Packs/Day Years [...] at Date Recorded 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 Medication Therapy Halfway Not Anticoagulant Spiriva Respimat 2.5 INHALE 2 PUFFS BY 4 g 0 01/09/20 21 07/26/2021 mcg/actuation inhaler MOUTH DAILY tacrolimus (PROGRAF) Take 2 capsules (1 360 capsule 3 202007/16/2021 0.5 mg mg total) by mouth 2 capsuleIndications: (two) times a day. Transplant Liver (HCC), Medication Therapy Halfway Not Anticoagulant UNABLE TO FIND by nasal 0 10/12/2021 (alternating) route 2 (two) times a day. Azelastine 1mg to Sinus Rinse twice daily. [facility] documented as 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 [address] [place] [phone] 04/25/2022 Office Visit Otorhinolaryngology Dex Matta, RAMONA, C.N.P., M.S.N. [address] [place] [phone] 05/08/2022 Appointment Laboratory Medicine Angélica Granger P.A.-CDemetrius [address] [place] [phone] 05/08/2022 Clinical Admitting/Central Communication Scheduling 05/10/2022 Appointment Radiology Jeremie Rose M.D. [address] [place] [phone] 05/10/2022 Comprehensive Visit Orthopedic Surgery Warner Graves M.D. [address] [place] [phone] 05/22/2022 Appointment Laboratory Medicine Angélica Granger P.A.-C. [address] [place] [phone] 06/05/2022 Appointment Laboratory Medicine Angélica Granger P.A.-C. [address] [place] [phone] 06/19/2022 Appointment Laboratory Medicine Angélica Granger P.A.-C. [address] [place] [phone] 07/03/2022 Appointment Laboratory Medicine Angélica Granger P.A.-C. [address] [place] [phone] 07/17/2022 Appointment Laboratory Medicine Angélica Granger P.A.-C. [address] [place] [phone] 07/31/2022 Appointment Laboratory Medicine Angélica Granger P.A.-C. [address] [place] [phone] 08/14/2022 Appointment Laboratory Medicine Angélica Granger P.A.-C. [address] [place] [phone] 08/28/2022 Appointment Laboratory Medicine Angélica Granger P.A.-C. [address] [place] [phone] documented as of this encounter Procedures Procedure Name Priority Date/Time Associated Diagnosis Comme nts HLA CLASS II SAB Routine 06/25/2021 1:00 AM Chronic Kidney Res ults for this ANTIBODY SCREEN CHOIR LEADER Disease procedure are in Pretransplant the results Recipient Evaluation section . Exam HLA CLASS I SAB Routine 06/25/2021 1:00 AM Chronic Kidney Resu lts for this ANTIBODY SCREEN CHOIR LEADER Disease procedure are in Pretransplant the results Recipient Evaluation section . Exam documented in this encounter Results HLA Class II SAB Antibody Screen (06/25/2021 1:00 AM CHOIR LEADER) [facility] [employer] Method Time Signature Class II SAB Negative Not Applicable 06/28/2021 DBB8 Overall 10:22 PM CHOIR LEADER Result Class II SAB 0 06/28/2021 DBB8 cPRA 10:22 PM CHOIR LEADER Comment: ----ADDITIONAL INFORMATION---- cPRA is calculated for either HLA class I or II (except DPB1) antibodies with a normalized MFI >2000 u sing published UNOS frequencies (http://optn.transplant.hrsa .gov). ??For convenience, all HLA antibodies with a normalized MFI >500 are listed in the specificity licea. SAB DRB1 Specificity NONE 06/28/2021 10:22 PM CHOIR LEADER DBB8 SAB [id number] Specificity NONE 06/28/2021 10:22 PM CHOIR LEADER DBB8 SAB DQB1 Specificity NONE 06/28/2021 10:22 PM CHOIR LEADER DBB8 SAB DPB1 Specificity NONE 06/28/2021 10:22 PM CHOIR LEADER DBB8 Comment: ----ADDITIONAL INFORMATION---- Method: Luminex Flow Cytometry CLIA: [id number] ??CLIA Yard Driver: KRISTAL MIMS MD,PhD Specimen Anatomical Collection Method Collection Time Receive d Time (Source) Location / / Volume Laterality Blood (Blood, 06/25/2021 1:00 AM 06/26/19 1:32 Venous) CHOIR LEADER PM CHOIR LEADER Willis Herrera M.D. LAB HLA ORDERABLES Performing Organization Address City/State/ZIP Code Phon e Number [facility] - [address] [place], [place] [address] [facility] [place] [address] [place] [address] [facility] [address] HLA Class I SAB Antibody Screen (06/25/2021 1:00 AM CHOIR LEADER) [facility] [employer] Method Time Signature Class I SAB Negative Not Applicable 06/28/2021 DBB8 Overall 10:14 PM CHOIR LEADER Result Class I SAB 0 06/28/2021 DBB8 cPRA 10:14 PM CHOIR LEADER Comment: ----ADDITIONAL INFORMATION---- cPRA is calculated for [...] ----ADDITIONAL INFORMATION---- Method: Luminex Flow Cytometry CLIA: [id number] ??CLIA Yard Driver: KRISTAL MIMS MD,PhD Specimen Anatomical Collection Method Collection Time Receive d Time (Source) Location / / Volume Laterality Blood (Blood, 06/25/2021 1:00 AM 06/26/19 1:32 Venous) CHOIR LEADER PM CHOIR LEADER Willis Herrera M.D. LAB HLA ORDERABLES Performing Organization Address City/State/[facility] Code Phon e Number [facility] - [address] [place], [place] [address] [facility] [address] [place] [address] [facility] [address] documented in this encounter Visit Diagnoses Diagnosis Chronic Kidney Disease Pretransplant Recipient Evaluation Exam documented in this encounter Additional Health Concerns Assessment Noted Time PHQ-9 Depression Total Score: 4 11/28/2020 10:17 AM CD T documented as of this encounter Care Teams Orthotic Fitter Relationship Specialty Start Date End Date Elsewhere, Pcp PCP - General Family Medicine 07/29/17 [facility] - Laboratory Medicine 04/12/20 [place] [phone] documented as of this encounter
--- OUTSIDE RECORDS SUMMARY | 2022-04-13 12:11 | XMS_ITS | Encounter Summary ---
:1955 Author Organization [facility] Address [address] [place] [address] Care Team Providers Name Role Phone Elsewhere, Pcp Primary Care Provider Unavailable Reason for Visit Reason Comments phone call Encounter Details Date Type Department Care Team Description 06/18/2021 Clinical Communication Division of Nephrology Rudy cortes, phone call and Hypertension in Padmini Hernandez APRN[place], [place] C.N.P., D.N.P. 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 They need an order as to what is needed and dosage. Current dose of Aranesp is 40 mcg every 2 weeks. Does he also need an iron infusion? Call Alena [phone] with any questions. I think you saw this patient last in [place]. Thank you, Silvia OING INSPECTOR documented in this encounter Plan of Treatment Upcoming Encounters Date Type Specialty Care Team Description 04/24/2022 Appointment Laboratory Medicine Angélica Granger P.A.-C. [address] [place] [phone] 04/25/2022 Office Visit Otorhinolaryngology Dex Matta APRN, C.N.P., M.S.N. [address] [place] [phone] 05/08/2022 Appointment Laboratory Medicine Angélica Granger P.A.-C. [address] [place] [phone] 05/08/2022 Clinical Admitting/Central Communication Scheduling 05/10/2022 Appointment Radiology Jeremie Rose M.D. [address] [place] [phone] 05/10/2022 Comprehensive Visit Orthopedic Surgery Warner Graves M.D. [address] [place] [phone] 05/22/2022 Appointment Laboratory Medicine Angélica Granger P.A.-C. [address] [place] [phone] 06/05/2022 Appointment Laboratory Medicine Angélica Granger P.A.-C. [address] [place] [phone] 06/19/2022 Appointment Laboratory Medicine Angélica Granger P.A.-C. [address] [place] [phone] 07/03/2022 Appointment Laboratory Medicine Angélica Granger P.A.-C. [address] [place] [phone] 07/17/2022 Appointment Laboratory Medicine Angélica Granger P.A.-C. [address] [place] [phone] 07/31/2022 Appointment Laboratory Medicine Angélica Granger P.A.-C. [address] [place] [phone] 08/14/2022 Appointment Laboratory Medicine Angélica Granger P.A.-C. [address] [place] [phone] 08/28/2022 Appointment Laboratory Medicine Angélica Granger P.A.-C. [address] [place] [address] documented as of this encounter Visit Diagnoses Not on filedocumented in this encounter Additional Health Concerns Assessment Noted Time PHQ-9 Depression Total Score: 4 11/28/2020 10:17 AM CD T documented as of this encounter Care Teams Conference Planning Manager Relationship Specialty Start Date End Date Elsewhere, Pcp PCP - General Family Medicine 07/29/17 [facility] - Laboratory Medicine 04/12/20 [place] [phone] documented as of this encounter
--- OUTSIDE RECORDS SUMMARY | 2022-04-13 12:11 | XMS_ITS | Encounter Summary ---
:1955 Author Organization [facility] Address [address] [place] [address] Care Team Providers Name Role Phone Elsewhere, Pcp Primary Care Provider Unavailable Reason for Visit Reason Comments Labs Only Encounter Details Date Type Department Care Team Description 06/14/2021 Clinical Communication [facility] Labs Only Center for R, R.N. 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 - 06/14/2021 9:26 AM CST Please review labs below. 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 Bruce has been having issues with infections recently. He was in the ER at the beginning of the month for amenia and shortness of breath. 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 He follow-ed up with ID earlier this week due to positive cultures from the ED (chronic rhinosinusitis and recurrent aspiration unresponsive to interventions) and CMVcolitis. He will get IV ganciclovir three times per week after dialysis locally for the CMV via PICCline. He has started Bactrim SS daily x14 days for treatment of Serratia Marcescens bronchitis/bronchiolitis. He will start Vanco x21 days for C.Diff. He follows with Padmini Barry CNP in Nephrology for stage 5 CKD, on hemodialysis. Current Medications & Recent Dose Changes: Tacrolimus 1 mg BID Mycophenolate 500 mg BID Prednisone 5 mg daily Labs: Recent Labs 06/12/21 0844 05/29/21 1009 05/25/21 0505 TACROLIMUS 1.5 L 1.6 L 2.1 L Recent Labs 06/12/21 0845 06/12/21 0844 05/29/21 1009 05/26/21 1109 05/26/21 0606 05/25/21 1235 05/25/21 0505 05/24/21 1040 05/24/21 1039 05/23/21 1137 05/23/21 1137 05/23/21 0834 05/23/21 0834 04/30/21 0556 04/26/21 1001 HGB -- 8.1 L 7.6 L 7.8 L 7.2 L 7.8 L 6.5 L -- < > -- 7.4 L -- 6.7 L < > 7.5 L HCT -- 26.5 L 24.2 L -- 21.3 L 23.7 L 20.3 L -- < > -- 22.0 L 22.4 L -- 22.2 L < > 23.6 L WBC -- 4.0 3.2 L -- 3.9 3.6 3.0 L -- < > -- 3.5 -- 3.4 < > 3.0 L NEUTROPHILS -- -- 2.37 -- 2.92 2.78 2.15 -- < > -- 2.85 < > -- -- -- PLT -- 184 209 -- 182 188 156 -- < > -- 175 -- 200 < > 185 NA 131 L -- 129 L 129 L -- 128 L -- 129 L 128 L < > < > 129 L 125 L -- 128 L < > 134 L KPLASMA -- -- 4.2 4.2 -- -- -- -- -- -- -- 3.9 -- 4.1 < > -- KBLOOD -- -- -- -- -- -- -- 4.1 -- -- 3.7 -- -- -- -- KSERUM 3.9 -- -- -- 4.1 -- 4.1 -- < > -- -- -- -- -- 4.3 MG -- -- -- -- -- -- 2.5 H -- -- -- -- -- -- -- -- GLUCOSE CANCELED 113 H -- CANCELED CANCELED 112 H -- 100 -- 117 -- < > < > 139 -- 119 < > 174 H HGBA1C -- -- -- -- -- -- -- -- -- -- -- -- -- -- 5.8 BUN 22 -- 47 H 47 H -- 55 H -- 58 H -- < > < > 59 H -- 55 H < > 58 H CREATININE 2.90 H -- 3.95 H 3.95 H -- 4.59 H -- 4.72 H -- < > < > 4.31 H -- 4.25 H < > 4.22 H ALKPHOS 121 -- 108 -- -- -- -- -- -- -- 107 -- -- -- -- AST 22 -- 45 -- -- -- -- -- -- -- 24 -- -- -- -- ALT 26 -- 40 -- -- -- -- -- -- -- 20 -- -- -- -- BILITOT 0.3 -- 0.2 -- -- -- -- -- -- -- 0.3 -- -- -- -- BILIDIR -- -- -- -- -- -- -- -- -- -- <0.2 -- -- -- -- PT -- -- -- -- -- -- -- -- -- -- 11.7 -- -- -- 13.2 INR -- -- -- -- -- -- -- -- -- -- 1.1 -- -- -- 1.0 ALBUMIN 3.3 L -- 3.3 L 3.3 L -- 3.2 L -- -- -- -- -- 3.6 < > 3.6 -- -- < > = values in this interval not displayed. Serologies: Recent Labs 06/12/21 1402 CMVQUANT 980 A Immunosuppression Goal Range: 2 Current Lab Frequency: Weekly Please advise on any changes or recommendations. Thanks, Yolie Dubois R.N. *All labs are now found in [facility] - Lab - Flowsheets. For further review of labs, please review there or under Synopsis* SPORT PILOT documented in this encounter Plan of Treatment Upcoming Encounters Date Type Specialty Care Team Description 04/24/2022 Appointment Laboratory Medicine Angélica Granger P.A.-C. [address] [place] [phone] 04/25/2022 Office Visit Otorhinolaryngology Dex Matta APRN, C.N.P., M.S.N. [address] [place] [phone] 05/08/2022 Appointment Laboratory Medicine Angélica Granger P.A.-C. [address] [place] [phone] 05/08/2022 Clinical Admitting/Central Communication Scheduling 05/10/2022 Appointment Radiology Jeremie Rose M.D. [address] [place] [phone] 05/10/2022 Comprehensive Visit Orthopedic Surgery Warner Graves M.D. [address] [place] [phone] 05/22/2022 Appointment Laboratory Medicine Angélica Granger P.A.-C. [address] [place] [phone] 06/05/2022 Appointment Laboratory Medicine Angélica Granger P.A.-C. [address] [place] [phone] 06/19/2022 Appointment Laboratory Medicine Angélica Granger P.A.-C. [address] [place] [phone] 07/03/2022 Appointment Laboratory Medicine Angélica Granger P.A.-C. [address] [place] [phone] 07/17/2022 Appointment Laboratory Medicine Angélica Granger P.A.-C. [address] [place] [phone] 07/31/2022 Appointment Laboratory Medicine Angélica Granger P.A.-C. [address] [place] [phone] 08/14/2022 Appointment Laboratory Medicine Angélica Granger P.A.-C. [address] [place] [phone] 08/28/2022 Appointment Laboratory Medicine Angélica Granger P.A.-C. [address] [place] [phone] documented as of this encounter Visit Diagnoses Not on filedocumented in this encounter Additional Health Concerns Assessment Noted Time PHQ-9 Depression Total Score: 4 11/28/2020 10:17 AM CD T documented as of this encounter Care Teams Pesticide Applicator Relationship Specialty Start Date End Date Elsewhere, Pcp PCP - General Family Medicine 07/29/17 [facility] - Laboratory Medicine 04/12/[address] [address] documented as of this encounter
--- OUTSIDE RECORDS SUMMARY | 2022-04-13 12:11 | XMS_ITS | Encounter Summary ---
:1955 Author Organization [facility] Address [address] [place] [address] Care Team Providers Name Role Phone Elsewhere, Pcp Primary Care Provider Unavailable Encounter Details Date Type Department Care Team Description 06/13/2021 Orders Only Division of Nephrology and Elissa Wilcox A PRN, Hypertension, Gnosticism C.N.P. 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 [address] [place] [phone] 04/25/2022 Office Visit Otorhinolaryngology Dex Matta APRN, C.N.P., M.S.N. [address] [place] [phone] 05/08/2022 Appointment Laboratory Medicine Angélica Granger P.A.-C. [address] [place] [phone] 05/08/2022 Clinical Admitting/Central Communication Scheduling 05/10/2022 Appointment Radiology Jeremie Rose M.D. [address] [place] [phone] 05/10/2022 Comprehensive Visit Orthopedic Surgery Warner Graves M.D. [address] [place] [phone] 05/22/2022 Appointment Laboratory Medicine Angélica Granger P.A.-C. [address] [place] [phone] 06/05/2022 Appointment Laboratory Medicine Angélica Granger P.A.-C. [address] [place] [phone] 06/19/2022 Appointment Laboratory Medicine Angélica Granger P.A.-C. [address] [place] [phone] 07/03/2022 Appointment Laboratory Medicine Angélica Granger P.A.-C. [address] [place] [phone] 07/17/2022 Appointment Laboratory Medicine Angélica Granger P.A.-C. [address] [place] [phone] 07/31/2022 Appointment Laboratory Medicine Angélica Granger P.A.-C. [address] [place] [phone] 08/14/2022 Appointment Laboratory Medicine Angélica Granger P.A.-C. [address] [place] [phone] 08/28/2022 Appointment Laboratory Medicine Angélica Granger P.A.-C. [address] [place] [phone] documented as of this encounter Visit Diagnoses Not on filedocumented in this encounter Additional Health Concerns Assessment Noted Time PHQ-9 Depression Total Score: 4 11/28/2020 10:17 AM CD T documented as of this encounter Care Teams Detective Narcotics And Vice Relationship Specialty Start Date End Date Elsewhere, Pcp PCP - General Family Medicine 07/29/17 [facility] - Laboratory Medicine 04/12/[address] [address] documented as of this encounter
[2022-04-13 12:12] LABS: Chloride* 98 mmol/L (96-114)
--- OUTSIDE RECORDS SUMMARY | 2022-04-13 12:12 | XMS_ITS | Encounter Summary ---
:1955 Author Organization [facility] Address [address] [place] [address] Care Team Providers Name Role Phone Elsewhere, Pcp Primary Care Provider Unavailable Encounter Details Date Type Department Care Team Description 05/29/2021 Hospital Encounter Department of [place], Transpl ant Liver (HCC); Laboratory Medicine Padmini Hernandez APRN, Medica tion Therapy Insurance Special Agent Not Anticoagulant; in [place], C.N.P., D.N.P. Chronic K idney Disease Stage 4 Glomerular Filtration Rate 15-29 (HCC) [address] [phone] Social History Tobacco Use Types Packs/Day Years [...] at Date Recorded Male 05/16/2020 4:27 PM ASSISTANT PRESSMAN documented as of this encounter Medications at [...] hours as needed for nausea or vomiting. vancomycin (VANCOCIN) Take 1 capsule (125 34 capsule 0 05/2606/04/2021 125 mg mg total) by mouth 4 capsuleIndications: C. (four) times a day difficile infection for 34 doses Indications: C. difficile infection. budesonide (Pulmicort) Mix 1 ampule in 120 [...] mouth Transplant Liver (HCC), daily. Medication Therapy Insurance Special Agent Not Anticoagulant Spiriva Respimat 2.5 INHALE 2 PUFFS BY 4 g 0 01/09/20 21 07/26/2021 mcg/actuation inhaler MOUTH DAILY tacrolimus (PROGRAF) Take 2 capsules (1 360 capsule 3 202007/16/2021 0.5 mg mg total) by mouth 2 capsuleIndications: (two) times a day. Transplant Liver (HCC), Medication Therapy Insurance Special Agent Not Anticoagulant UNABLE TO FIND by nasal 0 10/12/2021 (alternating) route 2 (two) times a day. Azelastine 1mg to Sinus Rinse twice daily. [facility] documented as 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 [address] [place] [phone] 04/25/2022 Office Visit Otorhinolaryngology Dex Matta, RAMONA, C.N.P., M.S.N. [address] [place] [phone] 05/08/2022 Appointment Laboratory Medicine Angélica Granger P.A.-CDemetrius [address] [place] [phone] 05/08/2022 Clinical Admitting/Central Communication Scheduling 05/10/2022 Appointment Radiology Jeremie Rose M.D. [address] [place] [phone] 05/10/2022 Comprehensive Visit Orthopedic Surgery Warner Graves M.D. [address] [place] [phone] 05/22/2022 Appointment Laboratory Medicine Angélica Granger P.A.-C. [address] [place] [phone] 06/05/2022 Appointment Laboratory Medicine Angélica Granger P.A.-C. [address] [place] [phone] 06/19/2022 Appointment Laboratory Medicine Angélica Granger P.A.-C. [address] [place] [phone] 07/03/2022 Appointment Laboratory Medicine Angélica Granger P.A.-C. [address] [place] [phone] 07/17/2022 Appointment Laboratory Medicine Angélica Granger P.A.-C. [address] [place] [phone] 07/31/2022 Appointment Laboratory Medicine Angélica Granger P.A.-C. [address] [place] [phone] 08/14/2022 Appointment Laboratory Medicine Angélica Granger P.A.-C. [address] [place] [phone] 08/28/2022 Appointment Laboratory Medicine Angélica Granger P.A.-C. [address] [place] [phone] documented as of this encounter Procedures Procedure Name Priority Date/Time Associated Diagnosis Comme nts MORPHOLOGY EVALUATION Routine 05/29/2021 10:09 Re sults for this AM ASSISTANT PRESSMAN procedure are i n the results section. RENAL FUNCTION PANEL, Routine 05/29/2021 10:09 Chronic Kidney Results for this S AM ASSISTANT PRESSMAN Disease Stage 4 procedure ar e in Glomerular Filtration the re sults Rate 15-29 (HCC) section. QUANTIFERON-TB GOLD Routine 05/29/2021 10:09 Chronic Kidney Re sults for this PLUS, B AM ASSISTANT PRESSMAN Disease Stage 4 procedure ar e in Glomerular Filtration the re sults Rate 15-29 (HCC) section. TACROLIMUS LEVEL, B Routine 05/29/2021 10:09 Transplant Liver Results for this AM ASSISTANT PRESSMAN (HCC) procedure are in Medication Therapy the resul ts Retirement Not section. Anticoagulant HEPATITIS B SURFACE Routine 05/29/2021 10:09 Chronic Kidney Re sults for this ANTIGEN AM ASSISTANT PRESSMAN Disease Stage 4 procedure ar e in Glomerular Filtration the re sults Rate 15-29 (HCC) section. CBC WITH Routine 05/29/2021 10:09 Transplant Liver Results for this DIFFERENTIAL, B AM ASSISTANT PRESSMAN (HCC) procedure are in Medication Therapy the resul ts Retirement Not section. Anticoagulant GLUCOSE, FASTING, S/P Routine 05/29/2021 10:09 Transplant Live r Results for this AM ASSISTANT PRESSMAN (HCC) procedure are in Medication Therapy the resul ts Retirement Not section. Anticoagulant COMPREHENSIVE Routine 05/29/2021 10:09 Transplant Liver Result s for this METABOLIC PANEL, S/P AM ASSISTANT PRESSMAN (HCC) procedure are in Medication Therapy the resul ts Insurance Special Agent Not section. Anticoagulant documented in this encounter Results (ABNORMAL) Morphology Evaluation (05/29/2021 10:09 AM ASSISTANT PRESSMAN) [facility] Method Time Signature RBC Morphology See 05/29/2021 CNFL Specific 11:09 AM Findings ASSISTANT PRESSMAN PLT Morphology Normal 05/29/2021 CNFL 11:09 AM ASSISTANT PRESSMAN PLT Estimate Adequate Adequate 05/29/2021 CNFL 11:09 AM ASSISTANT PRESSMAN Anisocytosis Slight (A) 05/29/2021 CNFL 11:09 AM ASSISTANT PRESSMAN Reactive/Atypical Present (A) Not Seen 05/29/2021 CNFL Lymphocytes 11:09 AM ASSISTANT PRESSMAN Dacrocytes Slight (A) Not Seen 05/29/2021 CNFL 11:09 AM ASSISTANT PRESSMAN Echinocytes Slight (A) Not Seen 05/29/2021 CNFL 11:09 AM ASSISTANT PRESSMAN Macrocytosis Slight (A) Not Seen 05/29/2021 CNFL 11:09 AM ASSISTANT PRESSMAN Microcytosis Slight (A) Not Seen 05/29/2021 CNFL 11:09 AM ASSISTANT PRESSMAN Poikilocytosis Slight (A) Not Seen 05/29/2021 CNFL 11:09 AM ASSISTANT PRESSMAN Specimen Anatomical Collection Method Collection Time Receive d Time (Source) Location / / Volume Laterality Blood 05/29/2021 10:09 05/29/2021 AM ASSISTANT PRESSMAN 10:11 AM ASSISTANT PRESSMAN Leonid Gonzalez M.D. LAB BLOOD ADD-ON Performing Organization Address City/[facility] Phon e Number [address] [address] [place] [address] System [address] Hepatitis B Surface Antigen (05/29/2021 10:09 AM ASSISTANT PRESSMAN) [facility] Signature HBs Antigen, Nonreactive Nonreactive 05/29/2021 ECLR S 4:51 PM ASSISTANT PRESSMAN Comment: Biotin has been identified by the [facility] as a potential interfering substance. ??Higher concentr ations of biotin may be found in multivitamins, hair/nail supple ments, and workout supplements. ??If the result does not ma [facility] clinical observations, repeat testing after patient refrains fr om the use of supplements for at least 12 hours. Specimen Anatomical Collection Method Collection Time Receive d Time (Source) Location / / Volume Laterality Blood (Blood, 05/29/2021 10:09 05/29/2021 4:02 Venous) AM ASSISTANT PRESSMAN PM ASSISTANT PRESSMAN Arley Banks APRN.N.P., D.N.P. LAB MICROBIO LOGY - BLOOD ORDERABLES Performing Organization Address City/[facility] Phon e Number [facility]- [address] [place] [address] [phone] [facility] [place] [address] System in [address] QuantiFERON-Tb Gold Plus, Blood (05/29/2021 10:09 AM ASSISTANT PRESSMAN) P athologist Signature QuantiFERON-TB Negative Negative 05/30/2021 ECLR Gold Plus 2:09 PM ASSISTANT PRESSMAN Result Comment: No interferon-gamma response to M. [...] TB1 Ag minus Nil Result 0.01 IU/mL 05/30/2021 2:09 PM ASSISTANT PRESSMAN ECLR TB2 Ag minus Nil Result 0.00 IU/mL 05/30/2021 2:09 PM ASSISTANT PRESSMAN ECLR Mitogen minus Nil Result 3.94 IU/mL 05/30/2021 2:09 PM ASSISTANT PRESSMAN ECLR Nil Result 0.57 IU/mL 05/30/2021 2:09 PM ASSISTANT PRESSMAN ECLR Specimen Anatomical Collection Method Collection Time Receive d Time (Source) Location / / Volume Laterality Blood (Blood, 05/29/2021 10:09 05/29/2021 4:02 Venous) AM ASSISTANT PRESSMAN PM ASSISTANT PRESSMAN Narrative [facility]- [facility] - 05/30/2021 2:09 PM ASSISTANT PRESSMAN Specimen Information: Specimen ID: [id number] Specimen Type: Blood Specimen Collection Start Date: 05/29/20 10:09 AM Specimen Received Date: 05/29/2021 ??4:0 2 PM Specimen ID: [id number] Specimen Type: Blood Specimen Collection Start Date: 05/29/20 10:09 AM Specimen Received Date: 05/29/2021 ??4:0 2 PM Specimen ID: [id number] Specimen Type: Blood Specimen Collection Start Date: 05/29/20 10:09 AM Specimen Received Date: 05/29/2021 ??4:0 3 PM Specimen ID: [id number] Specimen Type: Blood Specimen Collection Start Date: 05/29/20 10:09 AM Specimen Received Date: 05/29/2021 ??4:0 3 PM Padmini Hernandez Asha GREENE C.N.P., Bashir.N.P. LAB MICROBIO LOGY - BLOOD ORDERABLES Performing Organization Address City/State/ZIP Code Phon e Number [facility]- [address] [place] [phone] [facility] [place] [address] System [address] (ABNORMAL) Renal Function Panel (05/29/2021 10:09 AM ASSISTANT PRESSMAN) Analysis Performed At Patho logist Time Signature Potassium, P 4.2 3.6 - 5.2 05/29/2021 CNFL mmol/L 11:00 AM ASSISTANT PRESSMAN Sodium, P 129 (L) 135 - 145 05/29/2021 CNFL mmol/L 11:00 AM ASSISTANT PRESSMAN Chloride, P 97 (L) 98 - 107 05/29/2021 CNFL mmol/L 11:00 AM ASSISTANT PRESSMAN Bicarbonate, P 20 (L) 22 - 29 05/29/2021 CNFL mmol/L 11:00 AM ASSISTANT PRESSMAN Anion Gap, P 12 7 - 15 05/29/2021 CNFL 11:00 AM ASSISTANT PRESSMAN BUN (Blood Urea 47 (H) 8 - 24 05/29/2021 CNFL Nitrogen), P mg/dL 11:00 AM ASSISTANT PRESSMAN Creatinine 3.95 (H) 0.74 - 05/29/2021 CNFL 1.35 mg/dL 11:00 AM ASSISTANT PRESSMAN eGFR-Black/Afri 17 (L) >=60 05/29/2021 CNFL can [place] mL/min/BSA 11:00 AM ASSISTANT PRESSMAN Comment: ----ADDITIONAL INFORMATION---- Estimated GFR calculated using the 2009 CKD_EPI creatinine equation. eGFR Non-Black/ <15 (L) >=60 mL/min/BSA 05/29/2021 11:00 AM CNFL [place] ASSISTANT PRESSMAN Comment: ----ADDITIONAL INFORMATION---- Estimated GFR calculated using the 2009 CKD_EPI creatinine equation. Calcium, Total, P 8.2 (L) 8.8 - 10.2 mg/dL 05/29/2021 11:0 0 AM ASSISTANT PRESSMAN CNFL Glucose, P CANCELED mg/dL 05/29/2021 10:11 AM ASSISTANT PRESSMAN CNFL Comment: Test not performed. See Fasting Glucose result. Result canceled by the ancillary. Albumin, P 3.3 (L) 3.5 - 5.0 g/dL 05/29/2021 11:00 AM ASSISTANT PRESSMAN CNFL Phosphorus (Inorganic), P 3.3 2.5 - 4.5 mg/dL 05/29/20 11:00 AM ASSISTANT PRESSMAN CNFL Specimen Anatomical Collection Method Collection Time Receive d Time (Source) Location / / Volume Laterality Blood (Blood, 05/29/2021 10:09 05/29/2021 Venous) AM ASSISTANT PRESSMAN 10:10 AM ASSISTANT PRESSMAN Padmini David Barry APRN, C.N.P., D.N.P. LAB BLOOD AD D-ON Performing Organization Address City/[facility] Phon e Number [phone] [place] [address] [place] [address] (ABNORMAL) Tacrolimus, B (05/29/2021 10:09 AM ASSISTANT PRESSMAN) P athologist Signature Tacrolimus, B 1.6 (L) 5.0-15.0 05/30/2021 SDSC (Trough) 10:21 AM ASSISTANT PRESSMAN ng/mL Comment: ----ADDITIONAL INFORMATION---- Target steady-state trough [...] Location / / Volume Laterality Blood (Blood, 05/29/2021 10:09 05/30/2021 6:49 Venous) AM ASSISTANT PRESSMAN AM ASSISTANT PRESSMAN Leonid Gonzalez M.D. LAB BLOOD NON ADD-ON Performing Organization Address City/State/ZIP Code Phon e Number [facility] [address] [address] [place], [place] [address] [facility] [place] [address] Laboratory Medicine and Pathology [address] [place] (ABNORMAL) Glucose, Fasting (05/29/2021 10:09 AM ASSISTANT PRESSMAN) P athologist Signature Glucose, P 112 (H) 70 - 100 05/29/2021 CNFL mg/dL 10:58 AM ASSISTANT PRESSMAN Last Intake 16 hr 05/29/2021 CNFL 10:10 AM ASSISTANT PRESSMAN Specimen Anatomical Collection Method Collection Time Receive d Time (Source) Location / / Volume Laterality Blood (Blood, 05/29/2021 10:09 05/29/2021 Venous) AM ASSISTANT PRESSMAN 10:10 AM ASSISTANT PRESSMAN Leonid Gonzalez M.D. LAB BLOOD NON ADD-ON Performing Organization Address City/State/ZIP Code Phon e Number [address] [address] [facility] [place] [address] System [address] (ABNORMAL) Comprehensive Metabolic Panel (05/29/2021 10:09 AM ASSISTANT PRESSMAN) Analysis Performed At Patho logist Time Signature Potassium, P 4.2 3.6 - 5.2 05/29/2021 CNFL mmol/L 11:00 AM ASSISTANT PRESSMAN Sodium, P 129 (L) 135 - 145 05/29/2021 CNFL mmol/L 11:00 AM ASSISTANT PRESSMAN Chloride, P 97 (L) 98 - 107 05/29/2021 CNFL mmol/L 11:00 AM ASSISTANT PRESSMAN Bicarbonate, P 20 (L) 22 - 29 05/29/2021 CNFL mmol/L 11:00 AM ASSISTANT PRESSMAN Anion Gap, P 12 7 - 15 05/29/2021 CNFL 11:00 AM ASSISTANT PRESSMAN BUN (Blood Urea 47 (H) 8 - 24 05/29/2021 CNFL Nitrogen), P mg/dL 11:00 AM ASSISTANT PRESSMAN Creatinine 3.95 (H) 0.74 - 05/29/2021 CNFL 1.35 mg/dL 11:00 AM ASSISTANT PRESSMAN eGFR-Black/Afri 17 (L) >=60 05/29/2021 CNFL can [place] mL/min/BSA 11:00 AM ASSISTANT PRESSMAN Comment: ----ADDITIONAL INFORMATION---- Estimated GFR calculated using the 2009 CKD_EPI creatinine equation. eGFR Non-Black/ <15 (L) >=60 mL/min/BSA 05/29/2021 11:00 AM CNFL [place] ASSISTANT PRESSMAN Comment: ----ADDITIONAL INFORMATION---- Estimated GFR calculated using the 2009 CKD_EPI creatinine equation. Calcium, Total, P 8.2 (L) 8.8 - 10.2 mg/dL 05/29/2021 11:0 0 AM ASSISTANT PRESSMAN CNFL Glucose, P CANCELED mg/dL 05/29/2021 10:11 AM ASSISTANT PRESSMAN CNFL Comment: Test not performed. See Fasting Glucose result. Result canceled by the ancillary. Protein, Total, P 5.5 (L) 6.3 - 7.9 g/dL 05/29/2021 11:00 AM ASSISTANT PRESSMAN CNFL Albumin, P 3.3 (L) 3.5 - 5.0 g/dL 05/29/2021 11:00 AM ASSISTANT PRESSMAN CNFL Aspartate Aminotransferase 45 8 - 48 U/L 05/29/2021 1 1:00 AM ASSISTANT PRESSMAN CNFL (AST), P Alkaline Phosphatase, P 108 40 - 129 U/L 05/29/2021 11 :00 AM ASSISTANT PRESSMAN CNFL Alanine Aminotransferase 40 7 - 55 U/L 05/29/2021 11: 00 AM ASSISTANT PRESSMAN CNFL (ALT), P Bilirubin, Total, P 0.2 <=1.2 mg/dL 05/29/2021 11:00 A M ASSISTANT PRESSMAN CNFL Specimen Anatomical Collection Method Collection Time Receive d Time (Source) Location / / Volume Laterality Blood (Blood, 05/29/2021 10:09 05/29/2021 Venous) AM ASSISTANT PRESSMAN 10:10 AM ASSISTANT PRESSMAN Leonid Gonzalez M.D. LAB BLOOD ADD-ON Performing Organization Address City/State/ZIP Code Phon e Number [address] [address] [place] [address] System in [address] (ABNORMAL) CBC with Differential, Blood (05/29/2021 10:09 AM ASSISTANT PRESSMAN) [facility] gist Method Time Signature Hemoglobin 7.6 (L) 13.2 - 05/29/2021 CNFL 16.6 g/dL 11:08 AM ASSISTANT PRESSMAN Hematocrit 24.2 (L) 38.3 - 05/29/2021 CNFL 48.6 % 11:08 AM ASSISTANT PRESSMAN Erythrocytes 2.48 (L) 4.35 - 05/29/2021 CNFL 5.65 11:08 AM ASSISTANT PRESSMAN x10(12)/L MCV 97.6 78.2 - 05/29/2021 CNFL 97.9 fL 11:08 AM ASSISTANT PRESSMAN RBC Distrib Width 13.8 11.8 - 05/29/2021 CNFL 14.5 % 11:08 AM ASSISTANT PRESSMAN Platelet Count 209 135 - 317 05/29/2021 CNFL x10(9)/L 11:08 AM ASSISTANT PRESSMAN Leukocytes 3.2 (L) 3.4 - 9.6 05/29/2021 CNFL x10(9)/L 11:08 AM ASSISTANT PRESSMAN Neutrophils 2.37 1.56 - 05/29/2021 CNFL 6.45 11:08 AM ASSISTANT PRESSMAN x10(9)/L Lymphocytes 0.35 (L) 0.95 - 05/29/2021 CNFL 3.07 11:08 AM ASSISTANT PRESSMAN x10(9)/L Monocytes 0.33 0.26 - 05/29/2021 CNFL 0.81 11:08 AM ASSISTANT PRESSMAN x10(9)/L Eosinophils 0.09 0.03 - 05/29/2021 CNFL 0.48 11:08 AM ASSISTANT PRESSMAN x10(9)/L Basophils 0.02 0.01 - 05/29/2021 CNFL 0.08 11:08 AM ASSISTANT PRESSMAN x10(9)/L Specimen Anatomical Collection Method Collection Time Receive d Time (Source) Location / / Volume Laterality Blood (Blood, 05/29/2021 10:09 05/29/2021 Venous) AM ASSISTANT PRESSMAN 10:11 AM ASSISTANT PRESSMAN Leonid Gonzalez M.D. LAB BLOOD ADD-ON Performing Organization Address City/State/ZIP Code Phon e Number [facility]- [address] [place] [phone] [facility] [address] System [address] documented in this encounter Visit Diagnoses Diagnosis Transplant Liver (HCC) Medication Therapy Insurance Special Agent Not Anticoa gulant Chronic Kidney Disease Stage 4 Glomerula r Filtration Rate 15-29 (HCC) documented in this encounter Additional Health Concerns Assessment Noted Time PHQ-9 Depression Total Score: 4 11/28/2020 10:17 AM CD T documented as of this encounter Care Teams [employer] 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
--- OUTSIDE RECORDS SUMMARY | 2022-04-13 12:12 | XMS_ITS | Encounter Summary ---
:1955 Author Organization [facility] Address [address] [place] [id number] Care Team Providers Name Role Phone Elsewhere, Pcp Primary Care Provider Unavailable Reason for Visit Transplant (Routine) - Closed Specialty Diagnoses / Procedures Referred By Contact Refer red To Contact Transplant Surgery / Diagnoses Transplant Liver (HCC) Medication Therapy Sheet Rock Finisher Not Anticoagulant [facility] [address] [place] [phone] Referral ID Status Reason Start Date Expiration Date Visits Requ ested Visits Authorized [id number] Closed 05/28/2021 05/28/2022 1 1 Encounter Details Date Type Department Care Team Description 05/31/2021 Office Visit Yovani Khan M.D. [address] [place] [phone] Transplant Liver (HCC); Angel Zepeda M.D. [address] [place] [address] [phone] Medication Therapy Senior Care Not Anticoa gulant Transplantation and Clinical Regeneration in [place], [place] [address] [place], [place] [phone] Social History Tobacco Use Types Packs/Day [...] 12/15/2021 organizations such as yarsanism groups, unions, fraCivilisedMoney or athletic groups, or school groups? 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 - 05/31/2021 11:00 AM CST Bruce Singh : 1955 Visit Date: 05/31/21 SUBJECTIVE History of presenting illness: Mr. 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 The patient unfortunately was hospitalized for HERNÁN on chronic kidney disease stage with volume overload, uremia and metabolic acidosis. He has followed up with Ne phrology who plan to place a dialysis line in perform dialysis. He is at this stage fairly symptomatic with fatigue and inability to walk more than 20 ft. His coughing is also worsened. He was also found to have a C diff infection during this hospitalization. He has been placed on vancomycin which hasimproved his symptoms to a degree at day 4/5 but not completely resolved symptoms. Patient has a history of C diff infections in the past but none recently. REVIEW OF SYSTEMS Constitutional: Positive for fatigue. ENT: Positive for sinus congestion. Respiratory: Positive for coughing up mucus (phlegm) and dyspnea. Gastrointestinal: Positive for blood in stool and diarrhea. Psychiatric/Behavioral: Positive for little interest or pleasure in doing things over past two weeks. The following systems were negative: Skin, Eyes, CV, , Hematologic, Musculoskeletal, Neuro PHYSICAL EXAM Physical Exam General: Chronically ill-appearing. Cardiovascular: Regular rate and rhythm. No murmurs. Respiratory: Normal chest excursion without tachypnea. Breath sounds clear and equal bilaterally. Abdomen/Gastrointestinal: Normoactive bowel sounds. Nondistended, ascites present, soft, nontender. No rebound, no guarding. Extremities: No cyanosis, no effusions, no edema. Skin: Normal color for age and race. Neurologic: Alert and oriented, responds appropriately to questions. No focal deficits. ASSESSMENT / PLAN #1 Transplant Liver (HCC) #2 Medication Therapy Senior Care Not Anticoagulant # volume overload # uremia # metabolic acidosis # hypertension Our Nephrology colleagues are planning to place a dialysis line and perform dialysis. Hopefully thiswill improve some of the patient's symptoms. # C diff infection and diarrhea He has had sub optimal responsive vancomycin thus far. Recommend completing the course and if he does not have resolution of symptoms, he should inform the clinic. 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 # immunosuppression The patient continues on low doses of tacrolimus, CellCept 500 b.i.d. and prednisone 5 mg. His tacrolimus trough runs in the 1.5-2.5 range. Most recent from May 29 is 1.6. No adjustments necessary. # anemia Hemoglobin of 7.6. He is on Aranesp and Feraheme. He has a history of hematochezia and a positive Hemoccult. He will undergo colonoscopy this Friday. # bronchiectases # chronic cough # recurrent pneumonia Hopefully with dialysis his volume with would be a controlled and resultant better symptomatic management. # IPMN Will require continued surveillance with dedicated MRCP or CT abdomen if he remains a surgical candidate. # follow-up The patient should contact us if his symptoms of C diff infection do not improve. Infusion Nurse Dr. Emmanuel. R SIGNAL PROCESSING ENGINEER Angel Emmanuel M.D. - 05/31/2021 11:00 AM CST CHIEF COMPLAINT/REASON FOR VISIT Post hospital followup. HISTORY OF PRESENT ILLNESS I agree with the history of present illness, physical examination findings, and assessment and plan as outlined by Dr. Schuster's note of today's date. In addition, I have seen and evaluated the patient. Briefly, Mr. 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 His posttransplant course has been complicated by chronic kidney disease, and he also has a significant history for hyperlipidemia, hypertension, hypothyroidism. 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 Singh was hospitalized recently for volume overload in the setting of [id number] renal failure. Unfortunately, his kidney function has deteriorated with development of volume overload, metabolic acidosis and uremia. Therefore, he is having a tunneled dialysis catheter placed today, and he is scheduled to initiate outpatient hemodialysis tomorrow. He has been listed for kidney transplant. His liver chemistries remain normal, and there are no active liver graft-related concerns. He remainson triple immunosuppression with low but acceptable tacrolimus trough in the setting of MMF and prednisone use. Details per Dr. Schuster's note. R SIGNAL PROCESSING ENGINEER documented in this encounter Plan of Treatment Upcoming Encounters Date Type Specialty Care Team Description 04/24/2022 Appointment Laboratory Medicine Angélica Granger P.A.-C. [address] [place] [phone] 04/25/2022 Office Visit Otorhinolaryngology Dex Matta APRN, C.N.P., M.S.N. [address] [place] [phone] 05/08/2022 Appointment Laboratory Medicine Angélica Granger P.A.-C. [address] [place] [phone] 05/08/2022 Clinical Admitting/Central Communication Scheduling 05/10/2022 Appointment Radiology Jeremie Rose M.D. [address] [place] [phone] 05/10/2022 Comprehensive Visit Orthopedic Surgery Warner Graves M.D. [address] [place] [phone] 05/22/2022 Appointment Laboratory Medicine Angélica Granger P.A.-C. [address] [place] [phone] 06/05/2022 Appointment Laboratory Medicine Angélica Granger P.A.-C. [address] [place] [phone] 06/19/2022 Appointment Laboratory Medicine Angélica Granger P.A.-C. [address] [place] [phone] 07/03/2022 Appointment Laboratory Medicine Angélica Granger P.A.-C. [address] [place] [phone] 07/17/2022 Appointment Laboratory Medicine Angélica Granger P.A.-C. [address] [place] [phone] 07/31/2022 Appointment Laboratory Medicine Angélica Granger P.A.-C. [address] [place] [phone] 08/14/2022 Appointment Laboratory Medicine Angélica Granger P.A.-C. [address] [place] [phone] 08/28/2022 Appointment Laboratory Medicine Angélica Granger P.A.-C. [address] [place] [phone] documented as of this encounter Visit Diagnoses Diagnosis Transplant Liver (HCC) Medication Therapy Sheet Rock Finisher Not Anticoa gulant documented in this encounter Additional Health Concerns Infection Onset Date Last Indicated Resolved Time COVID19 Pending 05/31/2021 05/31/2021 05/31/2021 3:24 PM RADAR SIGNAL PROCESSING ENGINEER Assessment Noted Time PHQ-9 Depression Total Score: 4 11/28/2020 10:17 AM CD T documented as of this encounter Care Teams Workshop Manager Relationship Specialty Start Date End Date Elsewhere, Pcp PCP - General Family Medicine 07/29/17 [facility] - Laboratory Medicine 04/12/[address] [phone] documented as of this encounter
--- OUTSIDE RECORDS SUMMARY | 2022-04-13 12:12 | XMS_ITS | Encounter Summary ---
:1955 Author Organization [facility] Address [address] [place] [address] Care Team Providers Name Role Phone Elsewhere, Pcp Primary Care Provider Unavailable Encounter Details Date Type Department Care Team Description 05/28/2021 Orders Only Division of Nephrology Mara Barry Kidney Disease and Hypertension in Padmini Hernandez RAMONA, Stage 4 Glomerular [place], [place] C.N.P., D.N.P. 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 [address] [place] [phone] 05/08/2022 Appointment Laboratory Medicine Angélica Granger P.ADemetrius-CDemetrius [address] [place] [phone] 05/08/2022 Clinical Admitting/Central Communication Scheduling 05/10/2022 Appointment Radiology Jeremie Rose M.D. [address] [place] [phone] 05/10/2022 Comprehensive Visit Orthopedic Surgery Warner Graves M.D. [address] [place] [phone] 05/22/2022 Appointment Laboratory Medicine Angélica Granger P.A.-CDemetrius [address] [place] [phone] 06/05/2022 Appointment Laboratory Medicine Angélica Granger P.A.-C. [address] [place] [address] [phone] 06/19/2022 Appointment Laboratory Medicine Angélica Granger P.A.-C. [address] [place] [address] [phone] 07/03/2022 Appointment Laboratory Medicine Angélica Granger P.A.-C. [address] [place] [address] [phone] 07/17/2022 Appointment Laboratory Medicine Angélica Granger P.A.-C. [address] [place] [address] [phone] 07/31/2022 Appointment Laboratory Medicine Angélica Granger P.A.-C. [address] [place] [address] [phone] 08/14/2022 Appointment Laboratory Medicine Angélica Granger P.A.-C. [address] [place] [phone] 08/28/2022 Appointment Laboratory Medicine Angélica Granger P.A.-C. [address] [place] [phone] documented as of this encounter Results Hepatitis B Surface Antigen (05/29/2021 10:09 AM POLITICAL DIRECTOR) [facility] Method Time Signature HBs Antigen, Nonreactive Nonreactive 05/29/2021 ECLR S 4:51 PM POLITICAL DIRECTOR Comment: Biotin has been identified by the [facility] as a potential interfering substance. ??Higher concentr ations of biotin may be found in multivitamins, hair/nail supple ments, and workout supplements. ??If the result does not [facility] clinical observations, repeat testing after patient refrains fr om the use of supplements for at least 12 hours. Specimen Anatomical Collection Method Collection Time Receive d Time (Source) Location / / Volume Laterality Blood (Blood, 05/29/2021 10:09 05/29/2021 4:02 Venous) AM POLITICAL DIRECTOR PM POLITICAL DIRECTOR Padmini Hernandez Janette Barry APRNNJuan Miguel, D.N.P. LAB MICROBIO LOGY - BLOOD ORDERABLES Performing Organization Address City/State/ZIP Code Phon e Number [facility]- [address] [place] [phone] [facility] [place] [address] [address] QuantiFERON-Tb Gold Plus, Blood (05/29/2021 10:09 AM POLITICAL DIRECTOR) athologist Signature QuantiFERON-TB Negative Negative 05/30/2021 ECLR Gold Plus 2:09 PM POLITICAL DIRECTOR Result Comment: No interferon-gamma response to M. [...] Nil Result 0.01 IU/mL 05/30/2021 2:09 PM POLITICAL DIRECTOR ECLR TB2 Ag minus Nil Result 0.00 IU/mL 05/30/2021 2:09 PM POLITICAL DIRECTOR ECLR Mitogen minus Nil Result 3.94 IU/mL 05/30/2021 2:09 PM POLITICAL DIRECTOR ECLR Nil Result 0.57 IU/mL 05/30/2021 2:09 PM POLITICAL DIRECTOR ECLR Specimen Anatomical Collection Method Collection Time Receive d Time (Source) Location / / Volume Laterality Blood (Blood, 05/29/2021 10:09 05/29/2021 4:02 Venous) AM POLITICAL DIRECTOR PM POLITICAL DIRECTOR Narrative [facility]- [facility] - 05/30/2021 2:09 PM POLITICAL DIRECTOR Specimen Information: Specimen ID: [id number] Specimen Type: Blood Specimen Collection Start Date: 05/29/20 10:09 AM Specimen Received Date: 05/29/2021 ??4:0 2 PM Specimen ID: [id number] Specimen Type: Blood Specimen Collection Start Date: 05/29/20 10:09 AM Specimen Received Date: 05/29/2021 ??4:0 2 PM Specimen ID: [id number] Specimen Type: Blood Specimen Collection Start Date: 05/29/20 10:09 AM Specimen Received Date: 05/29/2021 ??4:0 3 PM Specimen ID: [id number] Specimen Type: Blood Specimen Collection Start Date: 05/29/20 10:09 AM Specimen Received Date: 05/29/2021 ??4:0 3 PM Padmini Barry APRN C.N.P., D.N.P. LAB MICROBIO LOGY - BLOOD ORDERABLES Performing Organization Address City/State/ZIP Code Phon e Number [facility]- [address] [place] [phone] [facility] [place] [address] System [address] documented in this encounter Visit Diagnoses Diagnosis Chronic Kidney Disease Stage 4 Glomerula r Filtration Rate 15-29 (HCC) - Primary Transplant Liver (HCC) Medication Therapy Gaming Host Not Anticoa gulant Chronic Kidney Disease Stage 4 Glomerula r Filtration Rate 15-29 (HCC) documented in this encounter Additional Health Concerns Assessment Noted Time PHQ-9 Depression Total Score: 4 11/28/2020 10:17 AM CD T documented as of this encounter Care Teams Separator Operator Relationship Specialty Start Date End Date Elsewhere, Pcp PCP - General Family Medicine 07/29/17 [facility] - Laboratory Medicine 04/12/[address] [phone] documented as of this encounter
--- OUTSIDE RECORDS SUMMARY | 2022-04-13 12:12 | XMS_ITS | Encounter Summary ---
:[address] [facility] Address [address] [place] [id number] Care Team Providers Name Role Phone Elsewhere, Pcp Primary Care Provider Unavailable Reason for Referral Outpatient (Routine) - Closed Specialty Diagnoses / Procedures Referred By Contact Refer red To Contact Diagnoses [facility] Procedures Colonoscopy C.N.P., D.N.P. 200 [place] [address] Referral ID Status Reason Start Date Expiration Date Visits Requ ested Visits Authorized [id number] Closed 05/22/2021 05/22/2022 1 1 ER DATA ANALYST Reason for Visit Outpatient (Routine) - Closed Specialty Diagnoses / Procedures Referred By Contact Refer red To Contact Diagnoses [facility] Procedures Colonoscopy C.N.P., D.N.P. 200 [place] [address] Referral ID Status Reason Start Date Expiration Date Visits Requ ested Visits Authorized [id number] Closed 05/22/2021 05/22/2022 1 1 Encounter Details Date Type Department Care Team Description 06/06/2021 Hospital Encounter Division of [facility] in [place]admini [place], [place] C.N.P., D.N.P. [address] [place] [phone] Social History Tobacco Use Types Packs/Day [...] at Date Recorded Male 05/16/2020 4:27 PM MASTER DATA ANALYST documented as of this encounter Last Filed Vital Signs Vital Sign Reading Time Taken Comments Blood Pressure 148/77 06/06/2021 3:33 PM MASTER DATA ANALYST Pulse 59 06/06/2021 3:33 PM MASTER DATA ANALYST Temperature 36.8 ??C (98.2 ??F) 06/06/2021 3:33 PM MASTER DATA ANALYST Respiratory Rate 10 06/06/2021 3:33 PM MASTER DATA ANALYST Oxygen Saturation 98% 06/06/2021 3:33 PM MASTER DATA ANALYST Inhaled Oxygen Concentration - - Weight 75 kg (165 lb 5.5 oz) 06/06/2021 1:19 PM MASTER DATA ANALYST Height 174 cm (5' 8.5) 06/06/2021 1:19 PM MASTER DATA ANALYST Body Mass Index 24.77 06/06/2021 1:19 PM MASTER DATA ANALYST documented in this encounter Medications at Time [...] mouth Transplant Liver (HCC), daily. Medication Therapy New Account Interviewer Not Anticoagulant Spiriva Respimat 2.5 INHALE 2 PUFFS BY 4 g 0 01/09/20 21 07/26/2021 mcg/actuation inhaler MOUTH DAILY tacrolimus (PROGRAF) Take 2 capsules (1 360 capsule 3 202007/16/2021 0.5 mg mg total) by mouth 2 capsuleIndications: (two) times a day. Transplant Liver (HCC), Medication Therapy New Account Interviewer Not Anticoagulant UNABLE TO FIND by nasal 0 10/12/2021 (alternating) route 2 (two) times a day. Azelastine 1mg to Sinus Rinse twice daily. [facility] documented as of this encounter H&P Notes Carlos Son M.D., M.S. - 06/06/2021 1:30 PM CST ASSESSMENT / PLAN Patient Name: Bruce Singh Colonoscopy Procedure Department : DIVISION OF GASTROENTEROLOGY IN [place], [place] SUBJECTIVE Past Medical History: Diagnosis Date [...] N/A 09/03/2013 >Umbilical hernia repair. ??? VASECTOMY 1989 Social History Socioeconomic History ??? Marital status: Single Spouse name: None ??? Number of children: None ??? Years of education: None ??? Highest education level: Some college, no degree Occupational History ??? None Tobacco Use ??? Smoking status: Never Smoker ??? Smokeless tobacco: Never Used Vaping Use ??? Vaping Use: never used Substance and Sexual Activity ??? Alcohol use: No ??? Drug use: No ??? Sexual activity: Not Currently control/protection: Vasectomy Other Topics Concern ??? None Social History Narrative ??? None Social Determinants of Health Financial Resource Strain: Low Risk ??? Difficulty of Paying Living Expenses: Not hard at all Food Insecurity: Unknown ??? Worried About Running Out of Food in the Last Year: Not on file ??? Ran Out of Food in the Last Year: Never true Transportation Needs: No Transportation Needs ??? Lack of Transportation (Medical): No ??? Lack of Transportation (Non-Medical): No Physical Activity: Insufficiently Active ??? Days of Exercise per Week: 1 day ??? Minutes of Exercise per Session: 20 min Stress: No Stress Concern Present ??? Feeling of Stress : Not at all Social Connections: Moderately Isolated ??? Frequency of Communication with Friends and Family: Once a week ??? Frequency of Social Gatherings with Friends and Family: Once a week ??? Attends Latter-Day Services: More than 4 times per year ??? Active Member of Clubs or Organizations: Yes ??? Attends Club or Organization Meetings: 1 to 4 times per year ??? Marital Status: Never Intimate Partner Violence: Not on file Housing Stability: Low Risk ??? Unable to Pay for Housing in the Last Year: No ??? Number of Places Lived in the Last Year: 1 ??? Unstable Housing in the Last Year: No Ambulatory Infusion Pump/Implanted Autopsy Assistant- Peripheral IV Catheter 06/06/21 20 G Right Arm (Active) Site Assessment Clean;Dry;Intact 06/06/21 1439 Lumen Status Capped/locked 06/06/21 1439 Dressing Type Occlusive;Transparent 06/06/21 1439 Dressing Status Clean;Dry;Intact 06/06/21 1439 Hemodialysis Catheter Permanent (tunneled, implanted) Right Chest (Active) Catheter Number of Lumens Double 06/06/21 1200 Status Deaccessed 06/06/21 1200 Site Assessment Dry;Intact 06/06/21 1200 Dressing Type Chlorhexidine gel pad 06/06/21 1200 Dressing Status Dry;Intact 06/06/21 1200 Cap(s) Intervention Changed 06/06/21 1200 Cap(s) Change Due 06/08/21 06/06/21 1200 Cap Type ClearGuard 06/06/21 1200 Daily Review of Line Necessity Dialysis/apheresis 06/06/21 1200 Line Necessity Reviewed With patient 06/06/21 1200 Peripheral IV Catheter 06/06/21 20 G Right Arm (Active) 06/06/21 1340 Arm Placed by External Staff?: IV Change Due: Size (Gauge): 20 G Length (Inches): Orientation: Right Site Prep: Alcohol Technique: Anatomical landmarks Placed by: CHRISTOPHER Smith Insertion attempts: 1 Removal Reason (REQUIRED): Removal Status: Site Assessment Clean;Dry;Intact 06/06/21 1439 Lumen Status Capped/locked 06/06/21 1439 Dressing Type Occlusive;Transparent 06/06/21 1439 Dressing Status Clean;Dry;Intact 06/06/21 1439 Hemodialysis Catheter Permanent (tunneled, implanted) Right Chest [...] Removal Catheter Length (cm): Catheter Tip Cultured: Catheter Number of Lumens Double 06/06/21 1200 Status Deaccessed 06/06/21 1200 Site Assessment Dry;Intact 06/06/21 1200 Dressing Type Chlorhexidine gel pad 06/06/21 1200 Dressing Status Dry;Intact 06/06/21 1200 Cap(s) Intervention Changed 06/06/21 1200 Cap(s) Change Due 06/08/21 06/06/21 1200 Cap Type ClearGuard 06/06/21 1200 Daily Review of Line Necessity Dialysis/apheresis 06/06/21 1200 Line Necessity Reviewed With patient 06/06/21 1200 Nothing was implanted during the procedure OBJECTIVE Weight: 75 kg Pain Score: 0 - No pain Consents Obtained: written The benefits, risks and alternatives of sedation or anesthesia, as well as the names, roles, and responsibilities of the healthcare team members, were discussed with the patient and/or decision maker: yes Procedure / Reason for visit: colonoscopy The following portions of the patient's history were reviewed and updated as appropriate: allergies,current medications, family history, medical history, surgical history, social history and problem list. yes Review of systems: pertinent ROS negative Mallampati: III - soft palate, base of uvula visible Heart: normal Lung: abnormal Lung sounds: diminished General / Constitutional: normal ASA physical exam: class 3 - patient with severe systemic disease Patient seen, evaluated and approved for sedation Sedation plan: moderate sedation Baseline Behavior: Psychosocial (WDL): Within Defined Limits Abdominal Exam: Gastrointestinal (WDL): Within Defined Limits Dental Information: Teeth: Intact ER DATA ANALYST documented in this encounter Miscellaneous Notes Result Encounter Note - Padmini Barry APRN, C.N.P., D.N.P. - 06/06/2021 4:40 PM CST Phone call to patient advised him of the colonoscopy results not showing any active or old bleeding.His hemoglobin results have improved. His colonoscopy did show some ulcerations and inflammation. Biopsies were done. I advised him I would let him know what the biopsy show and refer to gastroenterology if needed. For now he will continue dialyzing at [facility] where he is getting Epogen with each dialysis. I did let him know that if his hemoglobin does not respond and continue to improve with the Epogen after starting dialysis a hematology consult may be needed. The colonoscopy was done due to non responding hemoglobin and positive Hemoccult. ER DATA ANALYST documented in this encounter Plan of Treatment Upcoming Encounters Date Type Specialty Care Team Description 04/24/2022 Appointment Laboratory Medicine Angélica Granger P.A.-C. [address] [place] [phone] 04/25/2022 Office Visit Otorhinolaryngology Dex Matta APRN, C.N.PDemetrius, M.S.N. [address] [place] [phone] 05/08/2022 Appointment Laboratory Medicine Angélica Granger P.A.-C. [address] [place] [phone] 05/08/2022 Clinical Admitting/Central Communication Scheduling 05/10/2022 Appointment Radiology Jeremie Rose M.D. [address] [place] [phone] 05/10/2022 Comprehensive Visit Orthopedic Surgery Warner Graves M.D. [address] [place] [phone] 05/22/2022 Appointment Laboratory Medicine Angélica Granger P.A.-C. [address] [place] [phone] 06/05/2022 Appointment Laboratory Medicine Angélica Granger P.A.-C. [address] [place] [phone] 06/19/2022 Appointment Laboratory Medicine Angélica Granger P.A.-C. [address] [place] [phone] 07/03/2022 Appointment Laboratory Medicine Angélica Granger P.A.-C. [address] [place] [phone] 07/17/2022 Appointment Laboratory Medicine Angélica Granger P.A.-C. [address] [place] [phone] 07/31/2022 Appointment Laboratory Medicine Angélica Granger P.A.-C. [address] [place] [phone] 08/14/2022 Appointment Laboratory Medicine Angélica Granger P.A.-C. [address] [place] [phone] 08/28/2022 Appointment Laboratory Medicine Angélica Granger P.A.-C. [address] [place] [phone] documented as of this encounter Procedures Procedure Name Priority Date/Time Associated Diagnosis Comme nts SURGICAL PATHOLOGY Routine 06/06/2021 3:03 PM Res ults for this MASTER DATA ANALYST procedure are i n the results section. COLONOSCOPY Routine 06/06/2021 2:32 PM Anemia Results f or this MASTER DATA ANALYST procedure are i n the results section. COLONOSCOPY Routine 06/06/2021 2:32 PM Anemia MASTER DATA ANALYST documented in this encounter Results Surgical Pathology (06/06/2021 3:03 PM MASTER DATA ANALYST) Component Value Ref Test Analysis Performed Pathologis t Range Method Time At [facility] 06/08/2021 DTL 4:07 PM MASTER DATA ANALYST Participated in Diana Leonardo 06/08/2021 DTL the [facility] -Pathology 4:07 PM Interpretation Resident MASTER DATA ANALYST Report Leonid Oneal M.D. [phone] DTL electronically 4:07 PM signed by MASTER DATA ANALYST I verify that I have examined all relevant slides/materials for the specimen(s) and rendered or confirmed the diagnosis. Gross Description A: ?? Received in formalin labeled with the patie nt's name, 06/08/2021 DTL medical record number, and ileum-biopsy, terminal ileum 4:07 PM are four pale ftu-teev-bbk irregular soft tissues, ranging MASTER DATA ANALYST from 0.2-0.6 cm in greatest dimension. ??Specimens are submitted en toto in cassette A1. ??Grossed by AJG. B: ?? Received in formalin labeled with the patient's name, medical record number, and colon-biopsy, random sites (colon), right colon are eight pale srk-jkqt-[id number] irregular soft tissues, ranging from 0.2-0.6 cm in greatest dimension. ??Specimens are submitted en toto in cassette B1. Grossed by AJG. C: ?? Received in formalin labeled with the patient's name, medical record number, and colon-biopsy, random sites (colon), left colon are four pale grady-pink irregular soft tissues, ranging from 0.3-0.5 cm in greatest dimension. Specimens are submitted en toto in cassette C1. ??Grossed by AJG. Disclaimer This test was developed using an analyte specific reag ent. 06/08/2021 DT Its performance characteristics were determined by [facility] 4:07 PM [facility] in a manner consistent with CLIA requirements. This MASTER DATA ANALYST test has not been cleared or approved by the U.S. Food and Drug Administration. Interpretation REVISION DESCRIPTION 06/08/2021 DT CMV stains on A and B, not C. ?? Underlining in the PDF 4:07 PM report indicates revision. MASTER DATA ANALYST FINAL DIAGNOSIS A. ??Small bowel, terminal ileum endoscopic biopsy: ??Active ileitis with focal erosion. ??No dysplasia. ?? A CMV stain i s negative. B. ??Colon, random sites, right, endoscopic biopsy: Moderate active colitis with numerous CMV positive cells (CMV immunostain) C. ??Colon, random sites, left, endoscopic biopsy: ??Colonic mucosa without diagnostic abnormality. Comment: REVISED RESULTS ----PREVIOUSLY REPORTED ---- FINAL DIAGNOSIS A. ??Small bowel, terminal ileum endosco pic biopsy: ??Active ileitis with focal erosion. ??No dysplas ia. B. ??Colon, random sites, right, endosco pic biopsy: Moderate active colitis with numerous CMV positiv e cells (CMV immunostain) C. ??Colon, random sites, left, endoscop ic biopsy: ??Colonic mucosa without diagnostic abnormality. ? ? A CMV stain is negative., Flagged as: ??(Reported 06/08 15:00) Specimen (Source) Anatomical Collection Method Collection Time Re ceived Time Location / / Volume Laterality Biopsy (Ileum) 06/06/2021 3:03 PM MASTER DATA ANALYST Biopsy (Colon) 06/06/2021 3:08 PM MASTER DATA ANALYST Biopsy (Colon) 06/06/2021 3:16 PM MASTER DATA ANALYST Narrative This result has an attachment that is no t available. Carlos Dewey M.D., M.S. LAB SURG PATH ORDERABLE S Performing Organization Address City/State/[facility] Code Phon e Number [facility] - [address] [place], [place] [address] [facility] [place] [address] Laboratories-[facility] [address] Colonoscopy (06/06/2021 2:32 PM MASTER DATA ANALYST) Specimen (Source) Anatomical Collection Method Collection Time Re ceived Time Location / / Volume Laterality 06/06/2021 2:32 PM MASTER DATA ANALYST Impressions [employer] - 06/06/2021 3:28 PM MASTER DATA ANALYST Post-op Diagnoses: ? - Preparation of the colon was fa ir. ? - Multiple ulcers in the terminal ileum. Biopsied. ? - Patchy moderate inflammation wa s found, in decreasing severity from ? cecum to mid transverse colon, ru le out Crohn's disease, rule out ? infectious colitis and rule out p seudomembranous colitis. Biopsied. ? - The rectum, sigmoid colon and d escending colon are normal appearing. ? Biopsied in a separate bottle. ? - Internal hemorrhoids. Narrative [employer] - 06/06/2021 3:28 PM MASTER DATA ANALYST [facility] GI Patient Name: Bruce Singh Date of : 1955 Age: 65 Gender: Male Procedure Date: 06/06/2021 Procedure: ? Colonosc opy Providers: ? Carlos Reina ier Gael Dewey MD Referring Provider: ?Padmini Glez ebenezer Wellerritter Pre-op Diagnoses: ?Iron defici ency anemia Recommendation: ? - The patient will be observed po st-procedure, until all discharge ? criteria are met. ? - Resume previous diet today. ? - Await pathology results. ? - PATHOLOGY/MICROBIOLOGY FOLLOW-U P: The ordering provider is responsible ? for reviewing results from specim ens obtained during this endoscopic ? procedure and communicating the f indings to the patient. If guidance is ? needed for interpreting endoscopi c findings or pathology results, please ? consider a gastroenterology e-con sult. ? - Return to referring physician a s previously scheduled. Findings: ? The terminal ileum contained at l east three ulcers, largest measuring 5 ? mm ulcers. No bleeding was presen t. No stigmata of recent bleeding were ? seen. Biopsies were taken with a cold forceps for histology. ? Patchy moderate inflammation darcie acterized by congestion (edema), ? erythema and mucus was found in t he proximal transverse colon, in the ? mid transverse colon, in the asce nding colon and in the cecum. Biopsies ? were taken with a cold forceps fo r histology. ? The rectum, sigmoid colon and nicholas cending colon appeared normal. Biopsies ? were taken with a cold forceps fo r histology in a separate bottle. ? Internal hemorrhoids were found d uring retroflexion. The hemorrhoids ? were Grade I (internal hemorrhoid s that do not prolapse). Procedural Details: ? The patient was seen, [...] oxygen saturations ? were monitored continuously. The Pediatric Colonoscope was introduced ? under direct vision through the a nus and advanced to 10 cm into the ? ileum. The colonoscopy was perfor med without difficulty. The patient ? tolerated the procedure fairly we ll. The quality of the bowel ? preparation was evaluated using t he BBPS ([place]ia Bowel Preparation ? Scale) with scores of: Right [place] n = 2 (minor amount of residual ? staining, small fragments of stoo l and/or opaque liquid, but mucosa seen ? well), Transverse Colon = 2 (jordi r amount of residual staining, small ? fragments of stool and/or opaque liquid, but mucosa seen well) and Left ? Colon = 1 (portion of mucosa seen , but other areas not well seen due to ? staining, residual stool and/or o paque liquid). The total BBPS score ? equals 5. The quality of the elizabeth l preparation was fair. Estimated Blood Loss: ?Estimated blo od loss: none. Complications: ? No immedia te complications. Sedation: ? No sedation administered. Attending Participation: I personally pe rformed the entire procedure. Carlos Dewey MD 06/06/2021 3:28:13 PM This report has been signed electronical ly. Number of Addenda: 0 Padmini Barry APRN, C.N.P., D.N.P. GI PROCEDURE ORDERABLES Performing Organization Address City/State/ZIP Code Phon e Number [employer] NA documented in this encounter Visit Diagnoses Diagnosis Anemia documented in this encounter Administered Medications Inactive Administered Medications - up to 3 most recent administrations Medication Order MAR Action Action Date Dose Rate Site lactated ringers New Bag 06/06/2021 2:48 PM MASTER DATA ANALYST 20 mL Code/trauma/sedation continuous med, Starting on Fri06/06/21 at 1448 documented in this encounter Additional Health Concerns Assessment Noted Time PHQ-9 Depression Total Score: 4 11/28/2020 10:17 AM CD T documented as of this encounter Care Teams Restoration Silversmith Relationship Specialty Start Date End Date Elsewhere, Pcp PCP - General Family Medicine 07/29/17 [facility] - Laboratory Medicine 04/12/[address] [phone] documented as of this encounter
--- OUTSIDE RECORDS SUMMARY | 2022-04-13 12:12 | XMS_ITS | Encounter Summary ---
:1955 Author Organization [facility] Address [address] [place] [address] Care Team Providers Name Role Phone Elsewhere, Pcp Primary Care Provider Unavailable Encounter Details Date Type Department Care Team Description 05/30/2021 Documentation Division of Nephrology and Lina Sepulveda R.N. 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 - 05/30/2021 10:09 AM CST REFERRAL Padmini Barry CNP [phone] CHIEF COMPLAINT/PURPOSE OF VISIT REASON FOR REFERRAL: Tunneled dialysis catheter Tunneled dialysis catheter placement for the initiation of dialysis HISTORY OF PRESENT ILLNESS PERTINENT PROCEDURAL HISTORY: Patient referred by Padmini Barry CNP for tunneled dialysis catheter placement for the initiation of dialysis. His kidney disease is secondary to Hypertension and left renal artery stenosis status post stenting. He will then [facility] dial[facility] at [facility] onFriday, 06/01/21. PACEMAKER: No DIABETES: No ANTICOAGULATION: Takes 81mg Aspirin but no other anticoagulation medications. LABORATORY RESULTS: Current Labs in [facility] from 05/29/21. ALLERGIES/ADVERSE REACTIONS Allergies Allergen Reactions ??? Citalopram Other (see [...] transplant medications ??? Erythromycin Other (see comments) IMPRESSION/REPORT/PLAN SPECIFIC PATIENT INSTRUCTIONS: Patient instructed to report to the [facility] Alexey Jody, Robert Draper-D on , 05/31/21 at 12:00pm. You must have a telepathist to drive you home due to the sedation you will receive. You cannot drive for 24 hours after sedation. Please do not eat or drink after midnight the day of your procedure. Your procedure may be canceled or delayed if you do so. It is important to have an empty stomach to avoid problems with sedation. You may take your morning medication with a small amount of water. Bring the rest of your medicines that you take with you. If you take insulin please follow these instructions: N/A If you are on Coumadin or blood thinners, please follow these instructions: N/A Plan on spending about half to three fourths of the day in [place] for this procedure. There is generally some waiting involved prior to the procedure. Appointment scheduled via Tomeka Mcintyre at Interventional Radiology. The above appts were discussed with the patient over the phone and he had no further questions. ZINE WORKER documented in this encounter Plan of Treatment Upcoming Encounters Date Type Specialty Care Team Description 04/24/2022 Appointment Laboratory Medicine Angélica Granger P.A.-CDemetrius [address] [place] [phone] 04/25/2022 Office Visit Otorhinolaryngology Dex Matta APRN, C.N.P., M.S.N. [address] [place] [phone] 05/08/2022 Appointment Laboratory Medicine Angélica Granger P.A.-CDemetrius [address] [place] [phone] 05/08/2022 Clinical Admitting/Central Communication Scheduling 05/10/2022 Appointment Radiology Jeremie Rose M.D. [address] [place] [phone] 05/10/2022 Comprehensive Visit Orthopedic Surgery Warner Graves M.D. [address] [place] [phone] 05/22/2022 Appointment Laboratory Medicine Angélica Granger P.A.-C. [address] [place] [phone] 06/05/2022 Appointment Laboratory Medicine Angélica Granger P.A.-C. [address] [place] [phone] 06/19/2022 Appointment Laboratory Medicine Angélica Granger P.A.-C. [address] [place] [phone] 07/03/2022 Appointment Laboratory Medicine Angélica Granger P.A.-C. [address] [place] [phone] 07/17/2022 Appointment Laboratory Medicine Angélica Granger P.A.-C. [address] [place] [phone] 07/31/2022 Appointment Laboratory Medicine Angélica Granger P.A.-C. [address] [place] [phone] 08/14/2022 Appointment Laboratory Angélica Royal P.A.-C. [address] [place] [phone] 08/28/2022 Appointment Laboratory Anéglica Royal P.A.-C. [address] [place] [phone] documented as of this encounter Visit Diagnoses Not on filedocumented in this encounter Additional Health Concerns Assessment Noted Time PHQ-9 Depression Total Score: 4 11/28/2020 10:17 AM CD T documented as of this encounter Care Teams Pulmonary Physician Relationship Specialty Start Date End Date Elsewhere, Pcp PCP - General Family Medicine 07/29/17 [facility] - Laboratory Medicine 04/12/[address] [phone] documented as of this encounter
--- OUTSIDE RECORDS SUMMARY | 2022-04-13 12:12 | XMS_ITS | Encounter Summary ---
:1955 Author Organization [facility] Address [address] [place] [address] Care Team Providers Name Role Phone Elsewhere, Pcp Primary Care Provider Unavailable Encounter Details Date Type Department Care Team Description 05/28/2021 Orders Only Division of Nephrology Mara Barry Kidney Disease and Hypertension in Padmini Hernandez RAMONA, Stage 4 Glomerular [place], [place] C.N.P., D.N.P. 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 [address] [place] [address] [phone] 05/08/2022 Appointment Laboratory Medicine Angélica Granger P.ADemetrius-CDemetrius [address] [place] [phone] 05/08/2022 Clinical Admitting/Central Communication Scheduling 05/10/2022 Appointment Radiology Jeremie Rose M.D. [address] [place] [phone] 05/10/2022 Comprehensive Visit Orthopedic Surgery Warner Graves M.D. [address] [place] [phone] 05/22/2022 Appointment Laboratory Medicine Angélica Granger P.A.-CDemetrius [address] [place] [phone] 06/05/2022 Appointment Laboratory Medicine Angélica Granger P.A.-C. [address] [place] [phone] 06/19/2022 Appointment Laboratory Medicine Angélica Granger P.A.-C. [address] [place] [phone] 07/03/2022 Appointment Laboratory Medicine Angélica Granger P.A.-C. [address] [place] [address] [phone] 07/17/2022 Appointment Laboratory Medicine Angélica Granger P.A.-C. [address] [place] [address] [phone] 07/31/2022 Appointment Laboratory Medicine Angélica Granger P.A.-C. [address] [place] [address] [phone] 08/14/2022 Appointment Laboratory Medicine Angélica Granger P.A.-C. [address] [place] [address] [phone] 08/28/2022 Appointment Laboratory Medicine Angélica Granger P.A.-C. [address] [place] [address] [phone] documented as of this encounter Results (ABNORMAL) Renal Function Panel (05/29/2021 10:09 AM NUCLEAR INSTRUCTOR) Analysis Performed At [facility] Signature Potassium, P 4.2 3.6 - 5.2 05/29/2021 CNFL mmol/L 11:00 AM NUCLEAR INSTRUCTOR Sodium, P 129 (L) 135 - 145 05/29/2021 CNFL mmol/L 11:00 AM NUCLEAR INSTRUCTOR Chloride, P 97 (L) 98 - 107 05/29/2021 CNFL mmol/L 11:00 AM NUCLEAR INSTRUCTOR Bicarbonate, P 20 (L) 22 - 29 05/29/2021 CNFL mmol/L 11:00 AM NUCLEAR INSTRUCTOR Anion Gap, P 12 7 - 15 05/29/2021 CNFL 11:00 AM NUCLEAR INSTRUCTOR BUN (Blood Urea 47 (H) 8 - 24 05/29/2021 CNFL Nitrogen), P mg/dL 11:00 AM NUCLEAR INSTRUCTOR Creatinine 3.95 (H) 0.74 - 05/29/2021 CNFL 1.35 mg/dL 11:00 AM NUCLEAR INSTRUCTOR eGFR-Black/Afri 17 (L) >=60 05/29/2021 CNFL can [place] mL/min/BSA 11:00 AM NUCLEAR INSTRUCTOR Comment: ----ADDITIONAL INFORMATION---- Estimated GFR calculated using the 2009 CKD_EPI creatinine equation. eGFR Non-Black/ <15 (L) >=60 mL/min/BSA 05/29/2021 11:00 AM CNFL [place] NUCLEAR INSTRUCTOR Comment: ----ADDITIONAL INFORMATION---- Estimated GFR calculated using the 2009 CKD_EPI creatinine equation. Calcium, Total, P 8.2 (L) 8.8 - 10.2 mg/dL 05/29/2021 11:0 0 AM NUCLEAR INSTRUCTOR CNFL Glucose, P CANCELED mg/dL 05/29/2021 10:11 AM NUCLEAR INSTRUCTOR CNFL Comment: Test not performed. See Fasting Glucose result. Result canceled by the ancillary. Albumin, P 3.3 (L) 3.5 - 5.0 g/dL 05/29/2021 11:00 AM NUCLEAR INSTRUCTOR CNFL Phosphorus (Inorganic), P 3.3 2.5 - 4.5 mg/dL 05/29/20 11:00 AM NUCLEAR INSTRUCTOR CNFL Specimen Anatomical Collection Method Collection Time Receive d Time (Source) Location / / Volume Laterality Blood (Blood, 05/29/2021 10:09 05/29/2021 Venous) AM NUCLEAR INSTRUCTOR 10:10 AM NUCLEAR INSTRUCTOR Padmini Barry APRN, C.N.P., D.N.P. 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
--- OUTSIDE RECORDS SUMMARY | 2022-04-13 12:12 | XMS_ITS | Encounter Summary ---
:1955 Author Organization [facility] Address [address] [place] [address] Care Team Providers Name Role Phone Elsewhere, Pcp Primary Care Provider Unavailable Encounter Details Date Type Department Care Team Description 05/31/2021 Lab Department of Laboratory [place], Em savage Failure Renal End Stage Medicine and Pathology, E, RAMONA, C.N.P., ([facility]) [facility], in D.N.P. 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 [address] [place] [phone] 04/25/2022 Office Visit Otorhinolaryngology Dex Matta APRN, C.N.P., M.S.N. [address] [place] [phone] 05/08/2022 Appointment Laboratory Medicine Angélica Granger P.A.-C. [address] [place] [phone] 05/08/2022 Clinical Admitting/Central Communication Scheduling 05/10/2022 Appointment Radiology Jeremie Rose M.D. [address] [place] [phone] 05/10/2022 Comprehensive Visit Orthopedic Surgery Warner Graves M.D. [address] [place] [phone] 05/22/2022 Appointment Laboratory Medicine Angélica Granger P.A.-C. [address] [place] [address] [phone] 06/05/2022 Appointment Laboratory Medicine Angélica Granger P.A.-C. [address] [place] [phone] 06/19/2022 Appointment Laboratory Medicine Angélica Granger P.A.-C. [address] [place] [phone] 07/03/2022 Appointment Laboratory Medicine Angélica Granger P.A.-C. [address] [place] [phone] 07/17/2022 Appointment Laboratory Medicine Angélica Granger P.A.-C. [address] [place] [phone] 07/31/2022 Appointment Laboratory Medicine Angélica Granger P.A.-C. [address] [place] [phone] 08/14/2022 Appointment Laboratory Medicine Angélica Granger P.A.-C. [address] [place] [phone] 08/28/2022 Appointment Laboratory Medicine Angélica Granger P.A.-C. [address] [place] [phone] documented as of this encounter Procedures Procedure Name Priority Date/Time Associated Diagnosis Comme nts SARS COV-2 RNA, Routine 05/31/2021 9:38 AM Failure Renal End R esults for this PCR, VARIES HOUSING DIRECTOR Stage (HCC) procedure are i n the results section. documented in this encounter Results SARS CoV-2 RNA, PCR, Varies Asymptomatic (05/31/2021 9:38 AM HOUSING DIRECTOR) Patholo gist Method Time Signature SARS CoV-2 Swab, 05/31/2021 DTL RNA, PCR, Nasopharynx 3:23 PM HOUSING DIRECTOR Source SARS CoV-2 Undetected Undetected 05/31/2021 DTL RNA, PCR 3:23 PM HOUSING DIRECTOR Comment: SARS-CoV-2 RNA absent. This result does [...] Drug Administration an d is used per casing splitter's instructions. Performance characteristics were verified by [facility] in a manner consistent with CLIA requirements. Visit the CDC website: https://www.cdc.g ov/coronavirus/ for the most recent guidelines on Coron avirus testing. Fact Sheet for Healthcare Providers: https://www.fda.gov/media/772398/downloa d Fact Sheet for Patients: https://www.fda.gov/media/552313/downloa d Specimen Anatomical Collection Method Collection Time Receive d Time (Source) Location / / Volume Laterality Varies 05/31/2021 9:38 AM 1 (Nasopharynx) HOUSING DIRECTOR 10:40 AM HOUSING DIRECTOR Padmini Barry APRN C.N.P., D.N.P. LAB MICROBIO LOGY - GENERAL ORDERABLES Performing Organization Address City/State/ZIP Code Phon e Number [facility] - [address] [place], [place] [address] [facility] [place] [place] [address] Laboratories-[facility] [address] documented in this encounter Visit Diagnoses Diagnosis Failure Renal End Stage (HCC) documented in this encounter Additional Health Concerns Infection Onset Date Last Indicated Resolved Time COVID19 Pending 05/31/2021 05/31/2021 05/31/2021 3:24 PM HOUSING DIRECTOR Assessment Noted Time PHQ-9 Depression Total Score: 4 11/28/2020 10:17 AM CD T documented as of this encounter Care Teams Rn Oncology Relationship Specialty Start Date End Date Elsewhere, Pcp PCP - General Family Medicine 07/29/17 [facility] - Laboratory Medicine 04/12/[address] [address] documented as of this encounter
--- OUTSIDE RECORDS SUMMARY | 2022-04-13 12:12 | XMS_ITS | Encounter Summary ---
:1955 Author Organization [facility] Address [address] [place] [address] Care Team Providers Name Role Phone Elsewhere, Pcp Primary Care Provider Unavailable Reason for Referral Transplant (Routine) - Closed Specialty Diagnoses / Procedures Referred By Contact Refer red To Contact Transplant Surgery / Diagnoses Transplant Liver (HCC) Medication Therapy Detention Not Anticoagulant Chronic Cough Leonid Gonzalez [facility] Transplant M.[place]ie [address] [place] [address] Referral ID Status Reason Start Date Expiration Date Visits Requ ested Visits Authorized [id number] Closed 06/05/2021 06/05/2022 1 1 Scheduling Instructions Per Trung Plasencia- schedule with Trung nugent testing is complete. SPECIAL- please contact patient to sched lili. Please schedule testing/labs then follow-up with Trung Plasencia. Please sched lili first available. Thanks ER FEEDER MRI/CAT/PET Scan (Routine) - Closed Specialty Diagnoses / Procedures Referred By Contact Refer red To Contact Radiology Diagnoses Transplant Liver (HCC) Medication Therapy Detention Not Anticoagulant Chronic Cough Leonid Gonzalez M.D. [facility] Procedures CT Chest without IV Contrast [address] [place] [phone] Referral ID Status Reason Start Date Expiration Date Visits Requ ested Visits Authorized [id number] Closed 06/05/2021 06/05/2022 1 1 ER FEEDER Reason for Visit Reason Comments Care Coordination Encounter Details Date Type Department Care Team Description 06/01/2021 Clinical Sabine Gamez [facility] for Juanjo Brewer and [place] Clinical Regeneration [address] in [facility] [address] [facility] [phone] Social History Tobacco Use Types Packs/Day Years [...] or relatives? How often do you attend methodist or More than 4 times per year 12/15/2021 zoroastrianism services? 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 He is all set for 06/12. ER FEEDER Telephone Encounter - Yolie Dubois R.N. - 06/01/2021 11:18 AM CST Images from the original note were not included. ER FEEDER documented in this encounter Plan of Treatment Upcoming Encounters Date Type Specialty Care Team Description 04/24/2022 Appointment Laboratory Medicine Angélica Granger P.A.-C. [address] [place] [phone] 04/25/2022 Office Visit Otorhinolaryngology Dex Matta, RAMONA, C.N.P., M.S.N. [address] [place] [phone] 05/08/2022 Appointment Laboratory Medicine Angélica Granger P.A.-CDemetrius [address] [place] [phone] 05/08/2022 Clinical Admitting/Central Communication Scheduling 05/10/2022 Appointment Radiology Jeremie Rose M.D. [address] [place] [phone] 05/10/2022 Comprehensive Visit Orthopedic Surgery Warner Graves M.D. [address] [place] [phone] 05/22/2022 Appointment Laboratory Medicine Angélica Granger P.A.-CDemetrius [address] [place] [phone] 06/05/2022 Appointment Laboratory Medicine Angélica Granger P.A.-C. [address] [place] [phone] 06/19/2022 Appointment Laboratory Medicine Angélica Granger P.A.-C. [address] [place] [phone] 07/03/2022 Appointment Laboratory Medicine Angélica Granger P.A.-C. [address] [place] [phone] 07/17/2022 Appointment Laboratory Medicine Angélica Granger P.A.-C. [address] [place] [phone] 07/31/2022 Appointment Laboratory Medicine Angélica Granger P.A.-C. [address] [place] [phone] 08/14/2022 Appointment Laboratory Medicine Angélica Granger P.A.-C. [address] [place] [phone] 08/28/2022 Appointment Laboratory Medicine Angélica Granger P.A.-CDemetrius [address] [place] [phone] Scheduled Orders Name Type Priority Associated Diagnoses Order S chedule Aspergillus Antigen, Microbiology Routine Transplant Liver Exp ected: Bronchoalveolar Lavage (HCC) 06/06/2021 Medication Therapy (Approxim ate), Detention Not Expires: Anticoagulant 09/03/2022 Chronic Cough Scheduled Referrals Name Type Priority Associated Order Schedule Diagnoses Transplant Liver Outpatient Referral Routine Transplant Liver Expected: office visit (HCC) 06/06/2021 (clinic) Medication Therapy (Approxim ate), Detention Not Expires: Anticoagulant 09/03/2022 Chronic Cough documented as of this encounter Results CT Chest without IV Contrast (06/12/2021 10:05 AM HOPPER FEEDER) Anatomical Region Laterality Modality Chest, Thoracic RST LOS, Thoracic ARZ LOS, Thoracic N/A Computed Tomography FLA LOS Specimen (Source) Anatomical Collection Method Collection Time Re ceived Time Location / / Volume Laterality 06/12/2021 10:23 AM HOPPER FEEDER Impressions 06/12/2021 11:10 AM HOPPER FEEDER While there are some areas of waxing and waning bilateral infectious/inflammatory bronchiolitis, t here is an overall progression of these findings. Narrative 06/12/2021 11:10 AM HOPPER FEEDER EXAM: CT CHEST WITHOUT IV CONTRAST COMPARISON: [...] progression of these findings. Leonid Gonzalez M.D. IMG CT PROCEDURES (ABNORMAL) Glucose, Fasting (06/12/2021 8:45 AM HOPPER FEEDER) P athologist Signature Glucose, P 113 (H) 70 - 100 06/12/2021 DTL mg/dL 9:42 AM HOPPER FEEDER Last Intake 13 hr 06/12/2021 DTL 9:27 AM HOPPER FEEDER Specimen Anatomical Collection Method Collection Time Receive d Time (Source) Location / / Volume Laterality Blood (Blood, 06/12/2021 8:45 AM 06/12/20 9:27 Venous) HOPPER FEEDER AM HOPPER FEEDER Authorizing Provider Result Dotty Gonzalez M.D. LAB BLOOD NON ADD-ON Performing Organization Address City/State/ZIP Code Phon e Number [facility] - [address] [place], [place] [address] [facility] [place] [address] [facility] 200 [facility] (ABNORMAL) Comprehensive Metabolic Panel (06/12/2021 8:45 AM HOPPER FEEDER) Analysis Performed At Patho logist Time Signature Potassium, S 3.9 3.6 - 5.2 06/12/2021 DTL mmol/L 9:50 AM HOPPER FEEDER Sodium, S 131 (L) 135 - 145 06/12/2021 DTL mmol/L 9:50 AM HOPPER FEEDER Chloride, S 97 (L) 98 - 107 06/12/2021 DTL mmol/L 9:50 AM HOPPER FEEDER Bicarbonate, S 26 22 - 29 06/12/2021 DTL mmol/L 9:50 AM HOPPER FEEDER Anion Gap 8 7 - 15 06/12/2021 DTL 9:50 AM HOPPER FEEDER BUN (Blood Urea 22 8 - 24 06/12/2021 DTL Nitrogen), S mg/dL 9:50 AM HOPPER FEEDER Creatinine 2.90 (H) 0.74 - 06/12/2021 DTL 1.35 mg/dL 9:50 AM HOPPER FEEDER eGFR-Non 22 (L) >=60 06/12/2021 DTL Black/ mL/min/BSA 9:50 AM HOPPER FEEDER Cymro Comment: ----ADDITIONAL INFORMATION---- Estimated GFR calculated using the 2009 CKD_EPI creatinine equation. eGFR-Black/ 25 (L) >=60 mL/min/BSA 2020 9:50 AM HOPPER FEEDER DTL Comment: ----ADDITIONAL INFORMATION---- Estimated GFR calculated using the 2009 CKD_EPI creatinine equation. Calcium, Total, S 8.2 (L) 8.8 - 10.2 mg/dL 06/12/2021 9:50 AM HOPPER FEEDER DTL Glucose, S CANCELED mg/dL 06/12/2021 9:30 AM HOPPER FEEDER DTL Comment: Test not performed. See Fasting Glucose result. Result canceled by the ancillary. Protein, Total, S 5.1 (L) 6.3 - 7.9 g/dL 06/12/2021 9:50 A M HOPPER FEEDER DTL Albumin, S 3.3 (L) 3.5 - 5.0 g/dL 06/12/2021 9:50 AM HOPPER FEEDER D TL Aspartate Aminotransferase 22 8 - 48 U/L 06/12/2021 9 :50 AM HOPPER FEEDER DTL (AST), S Alkaline Phosphatase, S 121 40 - 129 U/L 06/12/2021 9: 50 AM HOPPER FEEDER DTL Alanine Aminotransferase (ALT), 26 7 - 55 U/L 021 9:50 AM HOPPER FEEDER DTL S Bilirubin, Total, S 0.3 <=1.2 mg/dL 06/12/2021 9:50 AM HOPPER FEEDER DTL Specimen Anatomical Collection Method Collection Time Receive d Time (Source) Location / / Volume Laterality Blood (Blood, 06/12/2021 8:45 AM 06/12/20 9:30 Venous) HOPPER FEEDER AM HOPPER FEEDER Leonid D Leise M.D. LAB BLOOD ADD-ON Performing Organization Address City/State/ZIP Code Phon e Number [facility] - [address] [place], [place] [address] [place] [address] [facility] [address] [facility] (ABNORMAL) Tacrolimus, B (06/12/2021 8:44 AM HOPPER FEEDER) athologist Signature Tacrolimus, B 1.5 (L) 5.0-15.0 06/12/2021 [facility] (Trough) 3:26 PM HOPPER FEEDER ng/mL Comment: ----ADDITIONAL INFORMATION---- Target steady-state trough concentration s vary depending on the type of transplant, concomitant immunosuppressio n, clinical/institutional protocols, and time post-transplant. Results should be interpreted in conjunction with this clinical information and any physic al signs/symptoms of rejection/toxicity. Testing performed by Liquid Chromatograp hy-Tandem Mass Spectrometry (LC-MS/MS). This test was developed and its performa nce characteristics determined by [facility] in a manner consistent with CLIA requirements. This test has not been cleared or approved by the U.S. Mer d and Drug Administration. Specimen Anatomical Collection Method Collection Time Receive d Time (Source) Location / / Volume Laterality Blood (Blood, 06/12/2021 8:44 AM 06/12/20 Venous) HOPPER FEEDER 10:53 AM HOPPER FEEDER Leonid Gonzalez M.D. LAB BLOOD NON ADD-ON Performing Organization Address City/[facility] Code Phon e Number [facility] [address] [place], [place] [address] [facility] [place] [address] Laboratory Medicine and Pathology [address] [place] (ABNORMAL) CBC without Differential (06/12/2021 8:44 AM HOPPER FEEDER) Patholo gist Method Time Signature Hemoglobin 8.1 (L) 13.2 - 06/12/2021 DTL 16.6 g/dL 9:22 AM HOPPER FEEDER Hematocrit 26.5 (L) 38.3 - 06/12/2021 DTL 48.6 % 9:22 AM HOPPER FEEDER Erythrocytes 2.71 (L) 4.35 - 06/12/2021 DTL 5.65 9:22 AM HOPPER FEEDER x10(12)/L MCV 97.8 78.2 - 06/12/2021 DTL 97.9 fL 9:22 AM HOPPER FEEDER RBC Distrib Width 14.7 (H) 11.8 - 06/12/2021 DTL 14.5 % 9:22 AM HOPPER FEEDER Platelet Count 184 135 - 317 06/12/2021 DTL x10(9)/L 9:22 AM HOPPER FEEDER Leukocytes 4.0 3.4 - 9.6 06/12/2021 DTL x10(9)/L 9:22 AM HOPPER FEEDER Specimen Anatomical Collection Method Collection Time Receive d Time (Source) Location / / Volume Laterality Blood (Blood, 06/12/2021 8:44 AM 06/12/20 9:13 Venous) HOPPER FEEDER AM HOPPER FEEDER Leonid Gonzalez M.D. LAB BLOOD ADD-ON Performing Organization Address City/State/ZIP Code Phon e Number [facility] - [address] [place], [place] [address] [facility] [place] [address] [facility] 200 [facility] (1, 3) Rews-M-Nmuzff (Fungitell), Serum (06/12/2021 8:44 AM HOPPER FEEDER) [facility] gist Method Time Signature (1, 3) <31 <60 pg/mL 06/12/2021 [facility] Hgil-G-Bxcwvo, pg/mL 9:55 PM HOPPER FEEDER Quantitative (1, 3) Negative Negative 06/12/2021 [facility] Thjf-B-Omeptw, 9:55 PM HOPPER FEEDER Qualitative Comment: No (1, 3) Jeob-E-Kfznpq detected. ?? This assay does not detect certain fungi , including Cryptococcus species, which produce very low levels of (1, 3) Kvgl-R-Jprjxl (BDG) and the Mucorales (e.g., Lichthemia, Mucor and Rhizopus), which are not known to produce BDG. Additionally, the yeast phase of Blastom yces dermatitidis produces little BDG and may not be detected by this assay. ----ADDITIONAL INFORMATION---- This assay was performed using the FDA-c leared Fungitell Assay ([facility], [place], [place], [place]), a [facility] based on modification of the Limulus Amebocyte Lysate pathway. Specimen Anatomical Collection Method Collection Time Receive d Time (Source) Location / / Volume Laterality Blood (Blood, 06/12/2021 8:44 AM 06/12/20 Venous) HOPPER FEEDER 10:55 AM HOPPER FEEDER Leonid Gonzalez M.D. LAB MICROBIOLOGY - BLOOD ORD ERABLES Performing Organization Address City/State/ZIP Code Phon e Number [facility] [address] [place] [address] [place] [address] Laboratory Medicine and Pathology [address] [place] documented in this encounter Visit Diagnoses Diagnosis Transplant Liver (HCC) - Primary Medication Therapy Detention Not Anticoa gulant Chronic Cough Transplant Liver (HCC) Medication Therapy Keeler Polygraph Operator Not Anticoa gulant Chronic Cough documented in this encounter Additional Health Concerns Assessment Noted Time PHQ-9 Depression Total Score: 4 11/28/2020 10:17 AM CD T documented as of this encounter Care Teams Medical Laboratory Technologist Relationship Specialty Start Date End Date Elsewhere, Pcp PCP - General Family Medicine 07/29/17 [facility] - Laboratory Medicine 04/12/20 [place] [address] documented as of this encounter
--- OUTSIDE RECORDS SUMMARY | 2022-04-13 12:12 | XMS_ITS | Encounter Summary ---
:1955 Author Organization [facility] Address [address] [place] [address] Care Team Providers Name Role Phone Elsewhere, Pcp Primary Care Provider Unavailable Encounter Details Date Type Department Care Team Description 06/01/2021 Orders Only Division of Nephrology Elissa Wilcox, Chron ic Failure Renal and Hypertension, TUFTER, C.N.P. 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 [address] [place] [phone] 04/25/2022 Office Visit Otorhinolaryngology Dex Matta, RAMONA, C.N.P., M.S.N. [address] [place] [phone] 05/08/2022 Appointment Laboratory Medicine Angélica Granger, P.A.-C. [address] [place] [phone] 05/08/2022 Clinical Admitting/Central Communication Scheduling 05/10/2022 Appointment Radiology Jeremie Rose M.D. [address] [place] [phone] 05/10/2022 Comprehensive Visit Orthopedic Surgery Warner Graves M.D. [address] [place] [phone] 05/22/2022 Appointment Laboratory Medicine Angélica Granger P.A.-C. [address] [place] [phone] 06/05/2022 Appointment Laboratory Medicine Angélica Granger P.A.-C. [address] [place] [phone] 06/19/2022 Appointment Laboratory Medicine Angélica Granger P.A.-C. [address] [place] [phone] 07/03/2022 Appointment Laboratory Medicine Angélica Granger P.A.-C. [address] [place] [phone] 07/17/2022 Appointment Laboratory Medicine Angélica Granger P.A.-C. [address] [place] [phone] 07/31/2022 Appointment Laboratory Medicine Angélica Granger P.A.-C. [address] [place] [phone] 08/14/2022 Appointment Laboratory Medicine Angélica Granger P.A.-C. [address] [place] [phone] 08/28/2022 Appointment Laboratory Medicine Angélica Granger P.A.-C. [address] [place] [phone] Scheduled Orders Name Type Priority Associated Diagnoses Order S chedule Hemodialysis Outpatient; Dialysis Routine Chronic Failure Renal 200 Occurrences End Stage Renal starting 03/2021 Disease Dialysis until 06/01 Dependent (HCC) documented as of this encounter Visit Diagnoses Diagnosis Chronic Failure Renal End Stage Renal Di sease Dialysis Dependent (HCC) - Primary documented in this encounter Additional Health Concerns Assessment Noted Time PHQ-9 Depression Total Score: 4 11/28/2020 10:17 AM CD T documented as of this encounter Care Teams Property Developer Relationship Specialty Start Date End Date Elsewhere, Pcp PCP - General Family Medicine 07/29/17 [facility] - Laboratory Medicine 04/12/20 [place] [id number] documented as of this encounter
--- OUTSIDE RECORDS SUMMARY | 2022-04-13 12:12 | XMS_ITS | Encounter Summary ---
:1955 Author Organization [facility] Address [address] [place] [address] Care Team Providers Name Role Phone Elsewhere, Pcp Primary Care Provider Unavailable Reason for Referral Outpatient (Routine) - Closed Specialty Diagnoses / Procedures Referred By Contact Refer red To Contact Radiology Diagnoses Failure Renal End Stage (HCC) Padmini Barry [facility] Procedures IR Dialysis / High Flow Catheter Placement RAMONA C.N.PDemetrius, D.N.P. 200 [place] [phone] Referral ID Status Reason Start Date Expiration Date Visits Requ ested Visits Authorized [id number] Closed 05/30/2021 05/30/2022 1 1 STITCHER Reason for Visit Outpatient (Routine) - Closed Specialty Diagnoses / Procedures Referred By Contact Refer red To Contact Radiology Diagnoses Failure Renal End Stage (HCC) Padmini Barry [facility] Procedures IR Dialysis / High Flow Catheter Placement RAMONA C.N.P., D.N.P. 200 [place] [address] Referral ID Status Reason Start Date Expiration Date Visits Requ ested Visits Authorized [id number] Closed 05/30/2021 05/30/2022 1 1 Encounter Details Date Type Department Care Team Description 05/31/2021 Hospital Encounter Department of Padmini Barry APRN C.N.PDemetrius, D.N.P. Failure Renal End Radiology in [place] Pastor M.D. [address] [place] [phone] Stage (HCC) [place], [place] Berenice Mart M.D. [address] [place] [phone] [address] [place] [phone] Social History Tobacco Use Types Packs/Day Years [...] at Date Recorded Male 05/16/2020 4:27 PM TOP STITCHER documented as of this encounter Last Filed Vital Signs Vital Sign Reading Time Taken Comments Blood Pressure 138/80 05/31/2021 3:35 PM TOP STITCHER Pulse 57 05/31/2021 3:35 PM TOP STITCHER Temperature 36.9 ??C (98.4 ??F) 05/31/2021 1:38 PM TOP STITCHER Respiratory Rate 19 05/31/2021 3:35 PM TOP STITCHER Oxygen Saturation 98% 05/31/2021 3:35 PM TOP STITCHER Inhaled Oxygen Concentration - - Weight 75 kg (165 lb 5.5 oz) 05/31/2021 1:38 PM TOP STITCHER Height - - Body Mass Index 24.77 05/25/2021 8:29 AM TOP STITCHER documented in this encounter Discharge Instructions AttachmentsThe following attachments cannot be sent through Care Everywhere. Central Venous Catheter: Reducing Your Risk of Infection (South African)Hemodialysis Catheters (South African)VIDEO: CARE OF YOUR ELECTRONIC INTEGRATED SYSTEMS MECHANIC CENTRAL VENOUS CATHETER (RUSSIAN)documented in this encounter Medications at Time of [...] mouth Transplant Liver (HCC), daily. 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 Transplant Liver (HCC), Medication Therapy [facility] Not Anticoagulant UNABLE TO FIND by nasal 0 10/12/2021 (alternating) route 2 (two) times a day. Azelastine 1mg to Sinus Rinse twice daily. [facility] documented as of this encounter Procedure Notes Berenice Mart M.D. - 05/31/2021 4:13 PM CST PATIENT DISPOSITION Return to inpatient bed. POST-PROCEDURE DIAGNOSIS ESRD PROCEDURE PERFORMED AND DESCRIPTION Right IJ Palindrome catheter placement PROCEDURE DETAILS See Radiology Report SPECIMENS REMOVED None FINDINGS Right IJ Palindrome catheter placement. Ready to use. PRIMARY PROCEDURALIST Darby Mart COMPLICATIONS None. DRAINS None. IMPLANTS None. ANESTHESIA Moderate Sedation. FLUIDS See MAR ESTIMATED BLOOD LOSS <5ml CURRENT MEDICATIONS No Medication Changes FOLLOW-UP LETTER None. MAY RETURN TO WORK Not applicable PATIENT INSTRUCTIONS No return appointment STITCHER documented in this encounter Plan of Treatment Upcoming Encounters Date Type Specialty Care Team Description 04/24/2022 Appointment Laboratory Medicine Angélica Granger P.A.-C. [address] [place] [phone] 04/25/2022 Office Visit Otorhinolaryngology Dex Matta APRN, C.N.P., M.S.N. [address] [place] [phone] 05/08/2022 Appointment Laboratory Medicine Angélica Granger P.A.-C. [address] [place] [phone] 05/08/2022 Clinical Admitting/Central Communication Scheduling 05/10/2022 Appointment Radiology Jeremie Rose M.D. [address] [place] [phone] 05/10/2022 Comprehensive Visit Orthopedic Surgery Warner Graves M.D. [address] [place] [phone] 05/22/2022 Appointment Laboratory Medicine Angélica Granger P.A.-C. [address] [place] [phone] 06/05/2022 Appointment Laboratory Medicine Angélica Granger P.A.-C. [address] [place] [phone] 06/19/2022 Appointment Laboratory Medicine Angélica Granger P.A.-C. [address] [place] [phone] 07/03/2022 Appointment Laboratory Medicine Angélica Granger P.A.-C. [address] [place] [phone] 07/17/2022 Appointment Laboratory Medicine Angélica Granger P.A.-C. [address] [place] [phone] 07/31/2022 Appointment Laboratory Medicine Angélica Granger P.A.-C. [address] [place] [phone] 08/14/2022 Appointment Laboratory Medicine Bárbara Angélica Stern P.A.-C. [address] [place] [phone] 08/28/2022 Appointment Laboratory Medicine Darlinganeesh Angélica Stern P.A.-C. [address] [place] [phone] documented as of this encounter Procedures Procedure Name Priority Date/Time Associated Comments Diagnosis IR DIALYSIS / RAD - Routine 05/31/2021 3:23 Failure Renal End Resul ts for this HIGH FLOW (most inpatients PM TOP STITCHER Stage (HCC) procedure a re in CATHETER and all the results PLACEMENT outpatients) section. documented in this encounter Results IR Dialysis / High Flow Catheter Placement (05/31/2021 3:23 PM TOP STITCHER) Anatomical Region Laterality Modality Body, Vascular Interventional RST LOS, Vascular N/A X-Ray Angiography Interventional ARZ LOS, Vascular Interventional FLA LOS Specimen (Source) Anatomical Collection Method Collection Time Re ceived Time Location / / Volume Laterality 05/31/2021 4:39 PM TOP STITCHER Impressions 05/31/2021 4:41 PM TOP STITCHER Successful palindrome catheter placement. Catheter ready for use. EP Narrative 05/31/2021 4:41 PM TOP STITCHER EXAM: IR DIALYSIS / HIGH FLOW CATHETER PLACEMENT CLINICAL HISTORY: Patient here for palin drome catheter for dialysis access. TECHNIQUE: Right neck was prepped and dr terraed usual sterile fashion. Right internal jugular vein was punctured usin g ultrasound. Single tunnel was created. A 23 cm cuff to tip palindrome catheter was placed via peel-away sheath. Catheter is ready for use. Catheter was sutured to skin with 2-0 Prolene. PREPROCEDURE: Patient seen, evaluated, h istory reviewed, and approved for sedation. Airway, heart, and lung exam s atisfactory for sedation. Discussed risks, benefits, alternatives for proced ure, and/or sedation. The roles and responsibilities of care team members, r esidents, and fellows were discussed. Patient understands information and ques tions answered. Informed consent obtained from the patient. Immediately p rior to starting the procedure, in the presence of the assisting personnel, a p rocedural pause was conducted to verify correct patient identity and verificatio n of procedure to be performed, and as applicable, correct side and site, corre ct patient position, availability of implants, special equipment, or special requirements, and all image and specimen identification data. INTRAPROCEDURE: Moderate sedation was ad ministered by sedation nurse under my supervision. The patient was continuousl y monitored with real time oxygen saturation, heart rate, ECG rhythm strip and blood pressure throughout administration of the sedation and perfo rmance of the procedure. The total intra-procedural sedation time was: 14 m inutes. Using ultrasound guidance to access vessel, patency was shown and aft er anesthetizing the skin with lidocaine the right internal jugular vein was punc tured successfully. A permanent image was created and stored. For placement of this central venous access, we followed catheter checklist and a standardized pr otocol. The position of the catheter tip was confirmed under fluoroscopic guidanc e, and a final image of the catheter position was obtained. Ready for use. Procedure Note [place] Pastor M.D. - 05/31/2021Formatti ng of this note might be different from the original. EXAM: IR DIALYSIS / HIGH FLOW CATHETER P LACEMENT CLINICAL HISTORY: Patient here for palin drome catheter for dialysis access. TECHNIQUE: Right neck was prepped and dr escamilla usual sterile fashion. Right internal jugular vein was punctured usin g ultrasound. Single tunnel was created. A 23 cm cuff to tip palindrome catheter was placed via peel-away sheath. Catheter is ready for use. Catheter was sutured to skin with 2-0 Prolene. PREPROCEDURE: Patient seen, evaluated, h istory reviewed, and approved for sedation. Airway, heart, and lung exam s atisfactory for sedation. Discussed risks, benefits, alternatives for proced ure, and/or sedation. The roles and responsibilities of care team members, r esidents, and fellows were discussed. Patient understands information and ques tions answered. Informed consent obtained from the patient. Immediately p rior to starting the procedure, in the presence of the assisting personnel, a p rocedural pause was conducted to verify correct patient identity and verificatio n of procedure to be performed, and as applicable, correct side and site, corre ct patient position, availability of implants, special equipment, or special requirements, and all image and specimen identification data. INTRAPROCEDURE: Moderate sedation was ad ministered by sedation nurse under my supervision. The patient was continuousl y monitored with real time oxygen saturation, heart rate, ECG rhythm strip and blood pressure throughout administration of the sedation and perfo rmance of the procedure. The total intra-procedural sedation time was: 14 m inutes. Using ultrasound guidance to access vessel, patency was shown and aft er anesthetizing the skin with lidocaine the right internal jugular vein was punc tured successfully. A permanent image was created and stored. For placement of this central venous access, we followed catheter checklist and a standardized pr otocol. The position of the catheter tip was confirmed under fluoroscopic guidanc e, and a final image of the catheter position was obtained. Ready for use. IMPRESSION: Successful palindrome catheter placement . Catheter ready for use. EP Padmini Barry APRN C.N.P., D.N.P. IMG AKILAH RAMIRES documented in this encounter Visit Diagnoses Diagnosis Failure Renal End Stage (HCC) documented in this encounter Administered Medications Inactive Administered Medications - up to 3 most recent administrations Medication Order MAR Action Action Date Dose Rate Site fentaNYL injection 25 mcg Given 05/31/2021 3:07 PM TOP STITCHER 25 mcg (SUBLIMAZE) 25 mcg, intravenous, Every 2 min PRN, sedation, or pain before and during sedation procedure, Starting on Shraddha 05/31/21 at 1424, Intraprocedure (RAD), Administer over 1 minute immediately prior to the procedure. May repeat every 2 minutes to a maximum of 200 mcg, until pain score of 3 or less from baseline. Do not give if respiratory rate is less than 8 breaths/minute Given 05/31/2021 3:00 PM TOP STITCHER 25 mcg flumazeniL injection 0.2 mg (ROMAZICON) 0.2 mg, intravenous, Once as needed, rev ersal, Starting on Shraddha 05/31/21 at 1424, For 1 dose, Intraprocedure (RAD), Administer once if patient has a RASS score of -4, -5 and has a respiratory rate less than 8 breaths/minute. lactated ringers New Bag 05/31/2021 2:57 PM TOP STITCHER 20 mL/hr 20 mL/hr 20 mL/hr, intravenous, Once as needed, to keep vein open, Starting on Shraddha 05/31/21 at 1323, For 1 dose, Intraprocedure (RAD) lidocaine-sodium bicarbonate (buffered) Given 05/31/2021 3:19 PM TOP STITCHER 18 mL 0.9%-8.4% injection infiltration, Code/trauma/sedation medication, Starting on Shraddha 05/31/21 at 1519 midazolam (PF) injection 0.25 mg (VERSED ) 0.25 mg, intravenous, Every 2 min PRN, s edation, RASS -2, Starting on Shraddha 05/31/21 at 1424, Intraprocedure (RAD), May repea t every 2 minutes to a maximum of 5 mg. Do not give if respiratory rate is less than 8 breaths/mi nute. midazolam (PF) injection 0.5 mg (VERSED) 0.5 mg, intravenous, Once as needed, sed ation, Starting on Shraddha 05/31/21 at 1424, For 1 dose, Intraprocedure (RAD) midazolam (PF) injection 0.5 mg (VERSED) Given 05/31/2021 3:07 PM TOP STITCHER 0.5 mg 0.5 mg, intravenous, Every 2 min PRN, sedation, RASS -1, Starting on Shraddha 05/31/21 at 1424, Intraprocedure (RAD), May repeat every 2 minutes for a maximum of 5 mg. Do not give if respiratory rate is less than 8 breaths/minute. Given 05/31/2021 2:59 PM TOP STITCHER 0.5 mg midazolam (PF) injection 1 mg (VERSED) 1 mg, intravenous, Every 2 min PRN, clay tion, RASS 0, Starting on Shraddha 05/31/21 at 1424, Intraprocedure (RAD), May repeat e very 2 minutes for a maximum of 5 mg. Do not give if respiratory rate is less than 8 breaths/mi nute. naloxone injection 0.2 mg (NARCAN) 0.2 mg, intravenous, Once as needed, respiratory depre ssion, Starting on Shraddha 05/31/21 at 1424, For 1 dose, Intraproced ure (RAD), Administer once if patient has a RASS score of -4, -5 and has a respiratory rate less t wooten 8 breaths/minute. ondansetron (PF) injection 4 mg (ZOFRAN) 4 mg, intravenous, Once as needed, nausea, vomiting, S tarting on Shraddha 05/31/21 at 1424, For 1 dose, Intraprocedure (RAD) sodium chloride 0.9 % injection 10 mL 10 mL, intravenous, As needed, line care, Starting on Shraddha 05/31/21 at 1323, Preprocedure (RAD), Peripheral Intraveno us Catheter and Rapid Infusion Catheter, prior to blood sampling, post blood transfusion or pos t blood sampling sodium chloride 0.9 % injection 3 mL 3 mL, intravenous, As needed, line care, Starting on T hu 05/31/21 at 1323, Preprocedure (RAD), Prior to and following infusion an d between multiple consecutive infusions: sodium chloride 0.9 % injection sodium chloride 0.9 % injection 3 mL 3 mL, intravenous, Every 12 hours scheduled, First dos e on Shraddha 05/31/21 at 2100, Preprocedure (RAD), Peripheral Intraveno us Catheter and Rapid Infusion Catheter, when no infusion to maintain patency documented in this encounter Active and Recently Administered Medications Times are shown in TOP STITCHER. Scheduled Medication Order 05/29/2021 05/30/2021 05/31/2021 sodium chloride 0.9 % injection 3 mL 3 mL, intravenous, Every 12 hours schedu led, First dose on Shraddha 05/31/21 at 2100, Preprocedure (RAD), Peripheral Intravenous Catheter and Rapid Infusion Catheter, when no infusion to maintain patency PRN Medication Order 05/29/2021 05/30/2021 05/31/2021 fentaNYL injection 25 mcg (SUBLIMAZE) 1500 (Given - Provider: Arabella Mosher, R.N.)1507 (Given - Provider: Arabella Mosher, R.N.) 25 mcg, intravenous, Every 2 min PRN, se dation, or pain before and during sedation procedure, Starting on Shraddha 05/31/21 at 1424, Intraprocedure (RAD), Administer over 1 minute immediately prior to the pro cedure. May repeat every 2 minutes to a maximum of 200 mcg, until pain score of 3 or less from baseline. Do not give if respiratory rate is less than 8 breaths/minute flumazeniL injection 0.2 mg (ROMAZICON) 0.2 mg, intravenous, Once as needed, rev ersal, Starting on Shraddha /21 at 1424, For 1 dose, Intraprocedure (RAD), Administer once if patient has a RASS score of -4, -5 and has a respiratory rate less than 8 breaths/minute. lactated ringers (COMPLETED) 145 7 (New Bag - Provider: Arabella Nunn R.N.)1525 (Stopped - Provider: Arabella Mosher R.N.) 20 mL/hr, intravenous, Once as needed, t o keep vein open, Starting on Shraddha 21 at 1323, For 1 dose, Intraprocedure (RAD) lidocaine-sodium bicarbonate (buffered) 0.9%-8.4% injection (COM PLETED) 1519 (Given - Provider: [place] Pastor M.D.) infiltration, Code/trauma/sedation medication, Starting on T 05/31/21 at 1519 midazolam (PF) injection 0.25 mg (VERSED) 0.25 mg, intravenous, Every 2 min PRN, s edation, RASS -2, Starting on Shraddha 1221 at 1424, Intraprocedure (RAD), May repeat every 2 minutes to a maximum of 5 mg. Do not give if respiratory rate is less than 8 breaths/minute. midazolam (PF) injection 0.5 mg (VERSED) 0.5 mg, intravenous, Once as needed, sed ation, Starting on Shraddha 12/21 at 1424, For 1 dose, Intraprocedure (RAD) midazolam (PF) injection 0.5 mg (VERSED) 1459 (Given - Provider: Arabella Mosher RDemetriusNDemetrius)1507 (Given - Provider: Dorene WhittNDemetrius) 0.5 mg, intravenous, Every 2 min PRN, se dation, RASS -1, Starting on Shraddha 12/9/21 at 1424, Intraprocedure (RAD), May repeat every 2 minutes for a maximum of 5 mg. Do not give if respiratory rate is less than 8 breaths/minute. midazolam (PF) injection 1 mg (VERSED) 1 mg, intravenous, Every 2 min PRN, clay tion, RASS 0, Starting on Shraddha 05/31/21 at 1424, Intraprocedure (RAD), May repeat every 2 minutes for a maximum of 5 mg. Do not give if respiratory rate is less than 8 breaths/minute. naloxone injection 0.2 mg (NARCAN) 0.2 mg, intravenous, Once as needed, res piratory depression, Starting on Shraddha 05/31/21 at 1424, For 1 dose, Intraprocedure (RAD), Administer once if patient has a RASS score of -4, -5 and has a respiratory rate less than 8 breaths/minute. ondansetron (PF) injection 4 mg (ZOFRAN) 4 mg, intravenous, Once as needed, nause a, vomiting, Starting on Shraddha 05/31/21 at 1424, For 1 dose, Intraprocedure (RAD) sodium chloride 0.9 % injection 10 mL 10 mL, intravenous, As needed, line care , Starting on Shraddha 05/31/21 at 1323, Preprocedure (RAD), Peripheral Intravenous Catheter and Rapid Infusion Catheter, prior to blood sampling, post blood transfusion or post blood sampling sodium chloride 0.9 % injection 3 mL 3 mL, intravenous, As needed, line care, Starting on Shraddha 05/31/21 at 1323, Preprocedure (RAD), Prior to and following infusion and between multiple consecutive infusions: sodium chloride 0.9 % injection documented in this encounter Additional Health Concerns Infection Onset Date Last Indicated Resolved Time COVID19 Pending 05/31/2021 05/31/2021 05/31/2021 3:24 PM TOP STITCHER Assessment Noted Time PHQ-9 Depression Total Score: 4 11/28/2020 10:17 AM CD T documented as of this encounter Care Teams Out Of School Hours Care Worker Relationship Specialty Start Date End Date Elsewhere, Pcp PCP - General Family Medicine 07/29/17 [facility] - Laboratory Medicine 04/12/20 [place] [id number] documented as of this encounter
--- OUTSIDE RECORDS SUMMARY | 2022-04-13 12:12 | XMS_ITS | Encounter Summary ---
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 Procedures US Upper Extremity Bilateral Dialysis Mapping D.O. 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 [address] [place] [address] Referral ID Status Reason Start Date Expiration Date Visits Requ ested Visits Authorized [id number] Closed 06/04/2021 06/04/2022 1 1 T SPINNER Encounter Details Date Type Department Care Team Description 06/04/2021 Orders Only Division of Nephrology Cuco, Hyper tension And Chronic Kidney Disease Stage 5 (HCC) (Primary Dx); and Hypertension in Otoniel Tubbs Jr., 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); [place], [place] D.L[place]ton Immunodeficiency (HCC); [address] [facility] [address] [facility] Transplant Liver (HCC) [place] [phone] Social History Tobacco Use Types Packs/Day Years [...] at Date Recorded Male 05/16/2020 4:27 PM RIVET SPINNER documented as of this encounter Plan of Treatment Upcoming Encounters Date Type Specialty Care Team Description 04/24/2022 Appointment Laboratory Medicine Angélica Granger P.A.-CDemetrius [address] [place] [phone] 04/25/2022 Office Visit Otorhinolaryngology Dex Matta APRN, C.N.P., M.S.N. [address] [place] [phone] 05/08/2022 Appointment Laboratory Medicine Angélica Granger P.ADemetrius-C. [address] [place] [phone] 05/08/2022 Clinical Admitting/Central Communication Scheduling 05/10/2022 Appointment Radiology Jeremie Rose M.D. [address] [place] [phone] 05/10/2022 Comprehensive Visit Orthopedic Surgery Warner Graves M.D. [address] [place] [phone] 05/22/2022 Appointment Laboratory Medicine Angélica Granger P.A.-CDemetrius [address] [place] [phone] 06/05/2022 Appointment Laboratory Medicine Angélica Granger P.A.-C. [address] [place] [phone] 06/19/2022 Appointment Laboratory Medicine Angélica Granger P.A.-C. [address] [place] [phone] 07/03/2022 Appointment Laboratory Medicine Angélica Granger P.A.-C. [address] [place] [phone] 07/17/2022 Appointment Laboratory Medicine Angélica Granger P.A.-C. [address] [place] [phone] 07/31/2022 Appointment Laboratory Medicine Angélica Granger P.A.-CDemetrius [address] [place] [phone] 08/14/2022 Appointment Laboratory Medicine Angélica Granger P.A.-CDemetrius [address] [place] [address] [phone] 08/28/2022 Appointment Laboratory Medicine Angélica Granger P.A.-C. [address] [place] [phone] Scheduled Referrals Name Type Priority Associated Diagnoses Order S jonathon Nephrology nurse Outpatient Routine 1 Occurrenc es visit (clinic) Referral starting 06/04/2021 unti l 09/02/2022 Dialysis - Outpatient Routine Hypertension And 1 Occurrenc es Hemodialysis access Referral Chronic Kidney starti ng consult (clinic) Disease Stage 5 06/04/20 21 until ([facility]) 09/02/2022 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) Immunodeficiency (HCC) Transplant Liver (HCC) documented as of this encounter Results US Upper Extremity Bilateral Dialysis Mapping (06/21/2021 10:43 AM RIVET SPINNER) Anatomical Region Laterality Modality Upper Extremity, Ultrasound RST LOS, Ultrasound ARZ LOS, Pranav ateral Ultrasound Ultrasound FLA LOS Specimen (Source) Anatomical Collection Method Collection Time Re ceived Time Location / / Volume Laterality 06/21/2021 10:44 AM RIVET SPINNER Impressions 06/21/2021 10:57 AM RIVET SPINNER Upper extremity arteries and veins evaluated for predialysis assessment Narrative 06/21/2021 10:57 AM RIVET SPINNER EXAM: US UPPER EXTREMITY BILATERAL DIALYSIS MAPPING [...] for predialysis assessment Otoniel [place]wood Jr., D.O. IMAutumn US PROCEDURES documented in this encounter Visit Diagnoses Diagnosis Hypertension And Chronic Kidney Disease Stage 5 (HCC) - Primary Chronic Failure Renal End Stage Renal Di sease Dialysis Dependent (HCC) Immunodeficiency (HCC) Transplant Liver (HCC) Hypertension And Chronic Kidney Disease Stage 5 (HCC) Chronic Failure Renal End Stage Renal Di sease Dialysis Dependent (HCC) Immunodeficiency (HCC) Transplant Liver (HCC) documented in this encounter Additional Health Concerns Assessment Noted Time PHQ-9 Depression Total Score: 4 11/28/2020 10:17 AM CD T documented as of this encounter Care Teams Supervisor Printing [employer] Relationship Specialty Start Date End Date Elsewhere, Pcp PCP - General Family Medicine 07/29/17 [facility] - Laboratory Medicine 04/12/[address] [address] documented as of this encounter
--- OUTSIDE RECORDS SUMMARY | 2022-04-13 12:12 | XMS_ITS | Encounter Summary ---
:1955 Author Organization [facility] Address [address] [place] [address] Care Team Providers Name Role Phone Elsewhere, Pcp Primary Care Provider Unavailable Reason for Referral Outpatient (Routine) - Closed Specialty Diagnoses / Procedures Referred By Contact Refer red To Contact Radiology Diagnoses Failure Renal End Stage ([facility]) [facility] D[facility] / High Flow Catheter Placement Arley GREENE.N.P., D.N.P. [address] [place] [address] Referral ID Status Reason Start Date Expiration Date Visits Requ ested Visits Authorized [id number] Closed 05/30/2021 05/30/2022 1 1 ING MACHINE OPERATOR ELECTROSLAG Reason for Visit Appointment Request (Routine) - Closed Specialty Diagnoses / Procedures Referred By Contact Refer red To Contact Nephrology and Hypertension Referral ID Status Reason Start Date Expiration Date Visits Requ ested Visits Authorized [id number] Closed 05/16/2021 05/16/2022 1 1 Encounter Details Date Type Department Care Team Description 05/30/2021 External Outreach Division of Nephrology Asha, Chronic Kidney Disease Stage 4 Glomerular Filtration Rate 15-29 ([facility]); and Hypertension in Padmini Hernandez APRN, Failur e Renal End Stage ([facility]) [place], [place] C.N.P., D.N.P. [address] [place] [phone] Social History Tobacco Use Types Packs/Day Years [...] at Date Recorded Male 05/16/2020 4:27 PM WELDING MACHINE OPERATOR ELECTROSLAG documented as of this encounter Last Filed Vital Signs Vital Sign Reading Time Taken Comments Blood Pressure 142/52 05/30/2021 11:18 AM WELDING MACHINE OPERATOR ELECTROSLAG Pulse 87 05/30/2021 11:18 AM WELDING MACHINE OPERATOR ELECTROSLAG Temperature - - Respiratory Rate 22 05/30/2021 11:18 AM WELDING MACHINE OPERATOR ELECTROSLAG Oxygen Saturation 98% 05/30/2021 11:18 AM WELDING MACHINE OPERATOR ELECTROSLAG Inhaled Oxygen Concentration - - Weight - - Height - - Body Mass Index - - documented in this encounter Progress Notes Padmini Barry APRN, C.N.P., D.N.P. - 05/30/2021 9:15 AM CST Subjective: [place] chronic [facility] Visit. History of Present Illness: Mr. Singh is a 65 y.o. male who presents for ongoing evaluation of chronic kidney disease. Past medical history is significant for autoimmune hepatitis status post liver transplant x2 1998 and 2012 on chronic immunosuppression, left renal artery stenosis status post stent placement, bipolar disorder, hypertension, hyperlipidemia, hypothyroidism, recurrent C diff infection, aspiration pneumon ia, COVID-19 infection October 2020. Patient was last seen in the chronic Kidney Disease Clinic on March 14, 2021. Since he was last seen his JORGE L therapy had been escalated due to ongoing anemia. He visited with his primary care physician who obtained a Hemoccult which was positive. He was instructed to schedule a colonoscopy but states he was not able to obtain 1 until July. I was able to schedule a colonoscopy for him on May 25 however on May 23 he called the clinic to report significant worsening weakness, and dyspnea. Laboratory values reviewed from his primary care office indicate worsening renal function whatappears to be in HERNÁN on CKD. He was sent to [facility]. While in the hospital he was diagnosed with C difficile and started on a course of vancomycin for 10days. He was encouraged to follow up outpatient with his colonoscopy scheduled for next week when heis done with his C Diff treatment. While in the hospital his creatinine increased to 4.72, he was found to be hyponatremic with worsening acidosis. He was given isotonic bicarbonate IV, 1 unit PRBCs, 1 dose of Feraheme 510 mg and Aranesp 100 mcg. He was discharged on May 26 with a hemoglobin of 7.2, sodium 128, potassium 4.1, bicarbonate 21, BUN 55, creatinine 4.59, calcium 7.4, albumin 3.2 and corrected calcium of 8. He comes in today with difficulty walking to the exam room per the RN. He is significantly short of breath, breathing hard. He reports significant weakness. Walking into room I note his heavy breathingand he is quite pale. Reports feeling bloated. Review of Systems Constitutional: Positive for fatigue and loss of appetite. Respiratory: Positive for coughing up mucus (phlegm) and dyspnea. Cardiovascular: Negative for chest pain, pressure or tightness and swelling in the legs or feet. Gastrointestinal: Positive for diarrhea, nausea and vomiting. The following systems were negative: Objective: Constitutional Appearance: He is ill-appearing. Comments: Pale, fatigued appearing Cardiovascular Rate and Rhythm: Normal rate. Heart sounds: Normal heart sounds. Pulmonary Breath sounds: Wheezing and rhonchi present. Abdominal General: There is distension. Palpations: There is no mass. Tenderness: There is no abdominal tenderness. Hernia: A hernia is present. Skin General: Skin is dry. Coloration: Skin is pale. Neurological Mental Status: He is alert and oriented to person, place, and time. Psychiatric Mood and Affect: Mood normal. Behavior: Behavior normal. Thought Content: Thought content normal. Judgment: Judgment normal. Vitals: 05/30/21 1118 BP: (!) 142/52 Pulse: 87 Resp: 22 Assessment/Plan: Lab work from May 29, 2021: Hemoglobin 7.6, sodium 129, potassium 4.2, bicarbonate 20, BUN 47, creatinine 3.95, calcium 8.2, phosphorus 3.3, albumin 3.3. #1 Chronic kidney Disease (CKD) stage 4-5, secondary to hypertension, left renal artery stenosis status post stenting and recent HERNÁN GFR is 16 mL/min by creatinine . BUN is 47 mg/dL. I think his creatinine and BUN are falsely reassuring given his been body habitus as well as lack of appetite. Cystatin C ml/min. He does display signs of uremia today. #2 CKD treatment options Kidney Transplant:Listed for kidney transplant: . Dialysis Plan: Interested in hemodialysis Dialysis access: TDC will be placed tomorrow morning with dialysis at [facility] Dialysis unit in [place] on Friday. Hepatitis B Status: Hep B antigen negative Hepatitis B Immunization/date (s): 12/07/1998, 07/06/1998, 06/22/1998, 06/08/1998 TB status: Pending QFT. #3 Hypertension Slightly elevated. Just restarted loop diuretic that was discontinued in the hospital due to feelinglike he is retaining fluid. #4 Anemia of CKD Iron Deficiency Anemia Continues with anemia. Colonoscopy scheduled for next week. Just received a dose of Aranesp and Feraheme while in the hospital as well as 1 unit PRBC. Will check his hemoglobin next on Friday as well as before his colonoscopy next week. Please take careful consideration before giving future iron infusions due to current C Diff infection. #5 Hyperparathyroidism, renal secondary Calcium: Corrected calcium 8 close to goal. He is asymptomatic of hypocalcemia. Phosphorus: at goal #6 Metabolic acidosis Bicarbonate improved. Will be starting dialysis on Friday. No changes made. ING MACHINE OPERATOR ELECTROSLAG documented in this encounter Plan of Treatment Upcoming Encounters Date Type Specialty Care Team Description 04/24/2022 Appointment Laboratory Medicine Angélica Granger P.A.-C. [address] [place] [phone] 04/25/2022 Office Visit Otorhinolaryngology Dex Matta APRN, C.N.P., M.S.N. [address] [place] [phone] 05/08/2022 Appointment Laboratory Medicine Angélica Granger P.A.-C. [address] [place] [phone] 05/08/2022 Clinical Admitting/Central Communication Scheduling 05/10/2022 Appointment Radiology Jeremie Rose M.D. [address] [place] [phone] 05/10/2022 Comprehensive Visit Orthopedic Surgery Warner Graves M.D. [address] [place] [address] [phone] 05/22/2022 Appointment Laboratory Medicine Angélica Granger P.A.-C. [address] [place] [address] [phone] 06/05/2022 Appointment Laboratory Medicine Angélica Granger P.A.-C. [address] [place] [phone] 06/19/2022 Appointment Laboratory Medicine Angélica Granger P.A.-C. [address] [place] [phone] 07/03/2022 Appointment Laboratory Medicine Angélica Granger P.A.-C. [address] [place] [phone] 07/17/2022 Appointment Laboratory Medicine Angélica Granger P.A.-C. [address] [place] [phone] 07/31/2022 Appointment Laboratory Medicine Angélica Granger P.A.-C. [address] [place] [phone] 08/14/2022 Appointment Laboratory Medicine Angélica Granger P.A.-C. [address] [place] [phone] 08/28/2022 Appointment Laboratory Medicine Angélica Granger P.A.-C. [address] [place] [phone] documented as of this encounter Procedures Procedure Name Priority Date/Time Associated Diagnosis Comme nts CYSTATIN C WITH Routine 05/26/2021 6:03 AM Chronic Kidney Resu lts for this EGFR WELDING MACHINE OPERATOR ELECTROSLAG Disease Stage 4 procedure ar e in Glomerular the results Filtration Rate section. 15-29 (HCC) documented in this encounter Results IR Dialysis / High Flow Catheter Placement (05/31/2021 3:23 PM WELDING MACHINE OPERATOR ELECTROSLAG) Anatomical Region Laterality Modality Body, Vascular Interventional RST LOS, Vascular N/A X-Ray Angiography Interventional ARZ LOS, Vascular Interventional FLA LOS Specimen (Source) Anatomical Collection Method Collection Time Re ceived Time Location / / Volume Laterality 05/31/2021 4:39 PM WELDING MACHINE OPERATOR ELECTROSLAG Impressions 05/31/2021 4:41 PM WELDING MACHINE OPERATOR ELECTROSLAG Successful palindrome catheter placement. Catheter ready for use. EP Narrative 05/31/2021 4:41 PM WELDING MACHINE OPERATOR ELECTROSLAG EXAM: IR DIALYSIS / HIGH FLOW CATHETER [...] Catheter ready for use. EP Padmini Barry APRN, C.N.P., D.N.P. IMG IR DAREN RAMIRES SARS CoV-2 RNA, PCR, Varies Asymptomatic (05/31/2021 9:38 AM WELDING MACHINE OPERATOR ELECTROSLAG) [facility] Method Time Signature SARS CoV-2 Swab, 05/31/2021 DTL RNA, PCR, Nasopharynx 3:23 PM WELDING MACHINE OPERATOR ELECTROSLAG Source SARS CoV-2 Undetected Undetected 05/31/2021 DTL RNA, PCR 3:23 PM WELDING MACHINE OPERATOR ELECTROSLAG Comment: SARS-CoV-2 RNA absent. This result does [...] Drug Administration an d is used per front desk manager's instructions. Performance characteristics were verified by [facility] in a manner consistent with CLIA requirements. Visit the CDC website: https://www.cdc.g ov/coronavirus/ for the most recent guidelines on Coron avirus testing. Fact Sheet for Healthcare Providers: https://www.fda.gov/media/886259/downloa d Fact Sheet for Patients: https://www.fda.gov/media/758654/downloa d Specimen Anatomical Collection Method Collection Time Receive d Time (Source) Location / / Volume Laterality Varies 05/31/2021 9:38 AM 1 (Nasopharynx) WELDING MACHINE OPERATOR ELECTROSLAG 10:40 AM WELDING MACHINE OPERATOR ELECTROSLAG Padmini Barry APRN, C.N.P., D.N.P. LAB MICROBIO LOGY - GENERAL ORDERABLES Performing Organization Address City/State/ZIP Code Phon e Number [facility] - [address] [place] [address] [address] [facility] [place] [address] Laboratories-[facility] [address] [facility] (ABNORMAL) Cystatin C with Estimated GFR, S (05/26/2021 6:03 AM WELDING MACHINE OPERATOR ELECTROSLAG) athologist Signature eGFR by 9 (L) >60 05/29/2021 DTL Cystatin C mL/min/BSA 5:48 PM WELDING MACHINE OPERATOR ELECTROSLAG Comment: Estimated GFR calculated using the CKD-E [...] lower with the new assay. Cystatin C 4.97 (H) 0.67 - 1.21 mg/L 05/29/2021 5:48 PM WELDING MACHINE OPERATOR ELECTROSLAG DTL Specimen Anatomical Collection Method Collection Time Receive d Time (Source) Location / / Volume Laterality Blood (Blood, 05/26/2021 6:03 AM 05/29/20 4:21 Venous) WELDING MACHINE OPERATOR ELECTROSLAG PM WELDING MACHINE OPERATOR ELECTROSLAG Padmini Hernandez Asha GREENE C.N.P., D.N.P. LAB BLOOD AD D-ON Performing Organization Address City/State/ZIP Code Phon e Number [facility] - [address] [place], [place] [address] [facility] [place] [address] [facility] [address] documented in this encounter Visit Diagnoses Diagnosis Chronic Kidney Disease Stage 4 Glomerula r Filtration Rate 15-29 (HCC) Failure Renal End Stage (HCC) Failure Renal End Stage (HCC) documented in this encounter Additional Health Concerns Assessment Noted Time PHQ-9 Depression Total Score: 4 11/28/2020 10:17 AM CD T documented as of this encounter Care Teams Telegraphic Service Dispatcher Relationship Specialty Start Date End Date Elsewhere, Pcp PCP - General Family Medicine 07/29/17 [facility] - Laboratory Medicine 04/12/20 [place] [address] documented as of this encounter
--- OUTSIDE RECORDS SUMMARY | 2022-04-13 12:12 | XMS_ITS | Encounter Summary ---
:1955 Author Organization [facility] Address [address] [place] [address] Care Team Providers Name Role Phone Elsewhere, Pcp Primary Care Provider Unavailable Encounter Details Date Type Department Care Team Description 05/31/2021 Documentation Division of Nephrology and Nicolasa Billingsley, Hypertension, 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 - 05/31/2021 2:08 PM CST SUBJECTIVE Outpatient hemodialysis has been arranged for the patient as requested in [place], [place]. Social work was only able to leave the patient a voicemail with the below information. Social work will continue to try to reach him by phone to let him know that this has been arranged. OBJECTIVE Location: [facility] [address] [place] [address] Date & Time: FridayJun 01 - 1:30 p.m. ASSESSMENT / PLAN ASSESSMENT The patients outpatient hemodialysis has been arranged at [place], [place] as requested. A voicemail was left the the patient updating him regarding this. Social work will continue to try to reach him byphone to update him. PLAN Social work is available for supportive counseling and assistance as appropriate. Ion Gamboa 05/31/21 RY CARE PROGRAM DIRECTOR documented in this encounter Plan of Treatment Upcoming Encounters Date Type Specialty Care Team Description 04/24/2022 Appointment Laboratory Medicine Angélica Granger P.A.-C. [address] [place] [phone] 04/25/2022 Office Visit Otorhinolaryngology Dex Matta APRN, C.N.P., M.S.N. [address] [place] [phone] 05/08/2022 Appointment Laboratory Medicine Angélica Granger P.A.-C. [address] [place] [phone] 05/08/2022 Clinical Admitting/Central Communication Scheduling 05/10/2022 Appointment Radiology Jeremie Rose M.D. [address] [place] [phone] 05/10/2022 Comprehensive Visit Orthopedic Surgery Warner Graves M.D. [address] [place] [phone] 05/22/2022 Appointment Laboratory Medicine Angélica Granger P.A.-C. [address] [place] [phone] 06/05/2022 Appointment Laboratory Medicine Angélica Granger P.A.-C. [address] [place] [phone] 06/19/2022 Appointment Laboratory Medicine Angélica Granger P.A.-C. [address] [place] [phone] 07/03/2022 Appointment Laboratory Medicine Angélica Granger P.A.-C. [address] [place] [phone] 07/17/2022 Appointment Laboratory Medicine Angélica Granger P.A.-C. [address] [place] [phone] 07/31/2022 Appointment Laboratory Medicine Angélica Grangre P.A.-C. [address] [place] [phone] 08/14/2022 Appointment Laboratory Medicine Angélica Granger P.A.-C. [address] [place] [phone] 08/28/2022 Appointment Laboratory Medicine Angélica Granger P.A.-C. [address] [place] [phone] documented as of this encounter Visit Diagnoses Not on filedocumented in this encounter Additional Health Concerns Infection Onset Date Last Indicated Resolved Time COVID19 Pending 05/31/2021 05/31/2021 05/31/2021 3:24 PM MEMORY CARE PROGRAM DIRECTOR Assessment Noted Time PHQ-9 Depression Total Score: 4 11/28/2020 10:17 AM CD T documented as of this encounter Care Teams Central Office Installer Relationship Specialty Start Date End Date Elsewhere, Pcp PCP - General Family Medicine 07/29/17 [facility] - Laboratory Medicine 04/12/[address] [address] documented as of this encounter
[2022-04-13 12:13] LABS: Potassium* 4.7 mmol/L (3.6-5.1); Sodium* 133 mmol/L (135-149)
--- OUTSIDE RECORDS SUMMARY | 2022-04-13 12:13 | XMS_ITS | Encounter Summary ---
:1955 Author Organization [facility] Address [address] [place] [address] Care Team Providers Name Role Phone Elsewhere, Pcp Primary Care Provider Unavailable Reason for Visit Outpatient (Routine) - Closed Specialty Diagnoses / Procedures Referred By Contact Refer red To Contact Diagnoses [facility] Colonoscopy C.N.P., D.N.P. 200 [place] [address] Referral ID Status Reason Start Date Expiration Date Visits Requ ested Visits Authorized [id number] Closed 05/22/2021 05/22/2022 1 1 Encounter Details Date Type Department Care Team Description 05/25/2021 Hospital Division of Hetal [place] (Stephy ent: [facility] [place], [place] RAMONA, C.N.P., [address] [place] [address] 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 Medication Therapy Jail Not Anticoagulant Spiriva Respimat 2.5 INHALE 2 PUFFS BY 4 g 0 01/09/20 21 07/26/2021 mcg/actuation inhaler MOUTH DAILY tacrolimus (PROGRAF) Take 2 capsules (1 360 capsule 3 202007/16/2021 0.5 mg mg total) by mouth 2 capsuleIndications: (two) times a day. Transplant Liver (HCC), Medication Therapy Jail Not Anticoagulant torsemide (DEMADEX) 10 Take 3 tablets (30 270 tablet 3 02/2205/26/2021 mg tablet mg total) by mouth daily. UNABLE TO FIND by nasal 0 10/12/2021 (alternating) route 2 (two) times a day. Azelastine 1mg to Sinus Rinse twice daily. [facility] documented as 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 [address] [place] [phone] 04/25/2022 Office Visit Otorhinolaryngology Dex Matta APRN, C.N.P., M.S.N. [address] [place] [phone] 05/08/2022 Appointment Laboratory Medicine Angélica Granger P.A.-C. [address] [place] [phone] 05/08/2022 Clinical Admitting/Central Communication Scheduling 05/10/2022 Appointment Radiology Jeremie Rose M.D. [address] [place] [phone] 05/10/2022 Comprehensive Visit Orthopedic Surgery Warner Graves M.D. [address] [place] [phone] 05/22/2022 Appointment Laboratory Medicine Angélica Granger P.A.-C. [address] [place] [phone] 06/05/2022 Appointment Laboratory Medicine Angélica Granger P.A.-C. [address] [place] [phone] 06/19/2022 Appointment Laboratory Medicine Angélica Granger P.A.-C. [address] [place] [phone] 07/03/2022 Appointment Laboratory Medicine Angélica Granger P.A.-C. [address] [place] [phone] 07/17/2022 Appointment Laboratory Medicine Angélica Granger P.A.-C. [address] [place] [phone] 07/31/2022 Appointment Laboratory Medicine Angélica Granger P.A.-C. [address] [place] [phone] 08/14/2022 Appointment Laboratory Medicine Angélica Granger P.A.-C. [address] [place] [phone] 08/28/2022 Appointment Laboratory Medicine Angélica Granger P.A.-C. [address] [place] [address] documented as of this encounter Visit Diagnoses Not on filedocumented in this encounter Additional Health Concerns Assessment Noted Time PHQ-9 Depression Total Score: 4 11/28/2020 10:17 AM CD T documented as of this encounter Care Teams Machine Buffer Relationship Specialty Start Date End Date Elsewhere, Pcp PCP - General Family Medicine 07/29/17 [facility] - Laboratory Medicine 04/12/20 [place] [phone] documented as of this encounter
--- OUTSIDE RECORDS SUMMARY | 2022-04-13 12:13 | XMS_ITS | Encounter Summary ---
:1955 Author Organization [facility] Address [address] [place] [address] Care Team Providers Name Role Phone Elsewhere, Pcp Primary Care Provider Unavailable Reason for Visit Reason Comments Liver Follow-up Encounter Details Date Type Department Care Team Description 05/26/2021 Documentation Piedad Lee Li ver Follow-up [facility] Trans[facility] M.D. 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 - 05/26/2021 11:24 AM CST Patient admitted to [facility] (LTS was not aware of this) for acute on chronic kidney failure and anemia. Discharging today 05/26. We will arrange for LTC-1 follow up as well. COOK documented in this encounter Plan of Treatment Upcoming Encounters Date Type Specialty Care Team Description 04/24/2022 Appointment Laboratory Medicine Angélica Granger P.A.-C. [address] [place] [phone] 04/25/2022 Office Visit Otorhinolaryngology Dex Matta APRN, C.N.P., M.S.N. [address] [place] [phone] 05/08/2022 Appointment Laboratory Medicine Angélica Granger P.A.-C. [address] [place] [phone] 05/08/2022 Clinical Admitting/Central Communication Scheduling 05/10/2022 Appointment Radiology Jeremie Rose M.D. [address] [place] [phone] 05/10/2022 Comprehensive Visit Orthopedic Surgery Warner Graves M.D. [address] [place] [phone] 05/22/2022 Appointment Laboratory Medicine Angélica Granger P.A.-C. [address] [place] [phone] 06/05/2022 Appointment Laboratory Medicine Angélica Granger P.A.-C. [address] [place] [phone] 06/19/2022 Appointment Laboratory Medicine Angélica Granger P.A.-C. [address] [place] [phone] 07/03/2022 Appointment Laboratory Medicine Angélica Granger P.A.-C. [address] [place] [phone] 07/17/2022 Appointment Laboratory Medicine Angélica Granger P.A.-C. [address] [place] [phone] 07/31/2022 Appointment Laboratory Medicine Angélica Granger P.A.-C. [address] [place] [phone] 08/14/2022 Appointment Laboratory Medicine Angélica Granger P.A.-C. [address] [place] [phone] 08/28/2022 Appointment Laboratory Medicine Angélica Granger P.A.-C. [address] [place] [phone] documented as of this encounter Visit Diagnoses Not on filedocumented in this encounter Additional Health Concerns Assessment Noted Time PHQ-9 Depression Total Score: 4 11/28/2020 10:17 AM CD T documented as of this encounter Care Teams Ironmolder Relationship Specialty Start Date End Date Elsewhere, Pcp PCP - General Family Medicine 07/29/17 [facility] - Laboratory Medicine 04/12/20 [place] [phone] documented as of this encounter
--- OUTSIDE RECORDS SUMMARY | 2022-04-13 12:13 | XMS_ITS | Encounter Summary ---
:1955 Author Organization [facility] Address [address] [place] [address] Care Team Providers Name Role Phone Elsewhere, Pcp Primary Care Provider Unavailable Reason for Referral Transplant (Routine) - Closed Specialty Diagnoses / Procedures Referred By Contact Refer red To Contact Transplant Surgery / Diagnoses Transplant Liver (HCC) Medication Therapy [facility] Not Anticoagulant [facility] Tom[facility] [address] [place] [phone] Referral ID Status Reason Start Date Expiration Date Visits Requ ested Visits Authorized [id number] Closed 05/28/2021 05/28/2022 1 1 Scheduling Instructions SPECIAL- please schedule labs then LTC f ollow-up early this week. Thanks F LABORER Encounter Details Date Type Department Care Team Description 05/28/2021 Orders Only Yolie Gamez Trans plant Liver (HCC) (Primary Dx); Center for R, R.N. 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 [address] [place] [phone] 05/08/2022 Appointment Laboratory Medicine Angélica Granger P.A.-C. [address] [place] [phone] 05/08/2022 Clinical Admitting/Central Communication Scheduling 05/10/2022 Appointment Radiology Jeremie Rose M.D. [address] [place] [phone] 05/10/2022 Comprehensive Visit Orthopedic Surgery Warner Graves M.D. [address] [place] [phone] 05/22/2022 Appointment Laboratory Medicine Angélica Granger P.A.-C. [address] [place] [phone] 06/05/2022 Appointment Laboratory Medicine Angélica Granger P.A.-C. [address] [place] [phone] 06/19/2022 Appointment Laboratory Medicine Angélica Granger P.A.-C. [address] [place] [phone] 07/03/2022 Appointment Laboratory Medicine Angélica Granger P.A.-C. [address] [place] [phone] 07/17/2022 Appointment Laboratory Medicine Angélica Granger P.A.-C. [address] [place] [phone] 07/31/2022 Appointment Laboratory Medicine Angélica Granger P.A.-C. [address] [place] [phone] 08/14/2022 Appointment Laboratory Medicine Angélica Granger P.A.-C. [address] [place] [phone] 08/28/2022 Appointment Laboratory Medicine Angélica Granger P.A.-C. [address] [place] [phone] Scheduled Referrals Name Type Priority Associated Diagnoses Order S chedule Transplant Liver Outpatient Referral Routine Transplant Liver (HCC) Expected: office visit Medication Therapy (clinic) Chcf Not (Approximate), Anticoagulant Expires: 08/26/2022 documented as of this encounter Results (ABNORMAL) Tacrolimus, B (05/29/2021 10:09 AM WHARF LABORER) athologist Signature Tacrolimus, B 1.6 (L) 5.0-15.0 05/30/2021 [facility] (Trough) 10:21 AM WHARF LABORER ng/mL Comment: ----ADDITIONAL INFORMATION---- Target steady-state trough concentration s vary depending on the type of transplant, concomitant immunosuppressio n, clinical/institutional protocols, and time post-transplant. Results should be interpreted in conjunction with this clinical information and any physic al signs/symptoms of rejection/toxicity. Testing performed by Liquid Chromatograp hy-Tandem Mass Spectrometry (LC-MS/MS). This test was developed and its performa nce characteristics determined by [facility] in a manner consistent with CLIA requirements. This test has not been cleared or approved by the U.S. Mer d and Drug Administration. Specimen Anatomical Collection Method Collection Time Receive d Time (Source) Location / / Volume Laterality Blood (Blood, 05/29/2021 10:09 05/30/2021 6:49 Venous) AM WHARF LABORER AM WHARF LABORER Leonid Gonzalez M.D. LAB BLOOD NON ADD-ON Performing Organization Address City/State/ZIP Code Phon e Number [facility] [address] [place], [place] [address] [facility] [place] [address] Laboratory Medicine and Pathology [address] [place] (ABNORMAL) Glucose, Fasting (05/29/2021 10:09 AM WHARF LABORER) P athologist Signature Glucose, P 112 (H) 70 - 100 05/29/2021 [facility] mg/dL 10:58 AM WHARF LABORER Last Intake 16 hr 05/29/2021 [facility] 10:10 AM WHARF LABORER Specimen Anatomical Collection Method Collection Time Receive d Time (Source) Location / / Volume Laterality Blood (Blood, 05/29/2021 10:09 05/29/2021 Venous) AM WHARF LABORER 10:10 AM WHARF LABORER Leonid Gonzalez M.D. LAB BLOOD NON ADD-ON Performing Organization Address City/State/ZIP Code Phon e Number [facility]- [address] [place] [address] [place] [address] System [address] (ABNORMAL) Comprehensive Metabolic Panel (05/29/2021 10:09 AM WHARF LABORER) Analysis Performed At Patho logist Time Signature Potassium, P 4.2 3.6 - 5.2 05/29/2021 [facility] mmol/L 11:00 AM WHARF LABORER Sodium, P 129 (L) 135 - 145 05/29/2021 [facility] mmol/L 11:00 AM WHARF LABORER Chloride, P 97 (L) 98 - 107 05/29/2021 [facility] mmol/L 11:00 AM WHARF LABORER Bicarbonate, P 20 (L) 22 - 29 05/29/2021 [facility] mmol/L 11:00 AM WHARF LABORER Anion Gap, P 12 7 - 15 05/29/2021 [facility] 11:00 AM WHARF LABORER BUN (Blood Urea 47 (H) 8 - 24 05/29/2021 [facility] Nitrogen), P mg/dL 11:00 AM WHARF LABORER Creatinine 3.95 (H) 0.74 - 05/29/2021 [facility] 1.35 mg/dL 11:00 AM WHARF LABORER eGFR-Black/Afri 17 (L) >=60 05/29/2021 [facility] can Afghan mL/min/BSA 11:00 AM WHARF LABORER Comment: ----ADDITIONAL INFORMATION---- Estimated GFR calculated using the 2009 CKD_EPI creatinine equation. eGFR Non-Black/ <15 (L) >=60 mL/min/BSA 05/29/2021 11:00 AM [facility] Afghan WHARF LABORER Comment: ----ADDITIONAL INFORMATION---- Estimated GFR calculated using the 2009 CKD_EPI creatinine equation. Calcium, Total, P 8.2 (L) 8.8 - 10.2 mg/dL 05/29/2021 11:0 0 AM WHARF LABORER [facility] Glucose, P CANCELED mg/dL 05/29/2021 10:11 AM WHARF LABORER CN[facility] Comment: Test not performed. See Fasting Glucose result. Result canceled by the ancillary. Protein, Total, P 5.5 (L) 6.3 - 7.9 g/dL 05/29/2021 11:00 AM WHARF LABORER [facility] Albumin, P 3.3 (L) 3.5 - 5.0 g/dL 05/29/2021 11:00 AM WHARF LABORER [facility] Aspartate Aminotransferase 45 8 - 48 U/L 05/29/2021 1 1:00 AM WHARF LABORER CN[facility] (AST), P Alkaline Phosphatase, P 108 40 - 129 U/L 05/29/2021 11 :00 AM WHARF LABORER CN[facility] Alanine Aminotransferase 40 7 - 55 U/L 05/29/2021 11: 00 AM WHARF LABORER [facility] (ALT), P Bilirubin, Total, P 0.2 <=1.2 mg/dL 05/29/2021 11:00 A M WHARF LABORER [facility] Specimen Anatomical Collection Method Collection Time Receive d Time (Source) Location / / Volume Laterality Blood (Blood, 05/29/2021 10:09 05/29/2021 Venous) AM WHARF LABORER 10:10 AM WHARF LABORER Leonid Gonzalez M.D. LAB BLOOD ADD-ON Performing Organization Address City/State/ZIP Code Phon e Number [address] [place] [address] System [address] (ABNORMAL) CBC with Differential, Blood (05/29/2021 10:09 AM WHARF LABORER) [facility] gist Method Time Signature Hemoglobin 7.6 (L) 13.2 - 05/29/2021 [facility] 16.6 g/dL 11:08 AM WHARF LABORER Hematocrit 24.2 (L) 38.3 - 05/29/2021 [facility] 48.6 % 11:08 AM WHARF LABORER Erythrocytes 2.48 (L) 4.35 - 05/29/2021 CN[facility] 5.65 11:08 AM WHARF LABORER x10(12)/L MCV 97.6 78.2 - 05/29/2021 [facility] 97.9 fL 11:08 AM WHARF LABORER RBC Distrib Width 13.8 11.8 - 05/29/2021 [facility] 14.5 % 11:08 AM WHARF LABORER Platelet Count 209 135 - 317 05/29/2021 [facility] x10(9)/L 11:08 AM WHARF LABORER Leukocytes 3.2 (L) 3.4 - 9.6 05/29/2021 [facility] x10(9)/L 11:08 AM WHARF LABORER Neutrophils 2.37 1.56 - 05/29/2021 CN[facility] 6.45 11:08 AM WHARF LABORER x10(9)/L Lymphocytes 0.35 (L) 0.95 - 05/29/2021 CN[facility] 3.07 11:08 AM WHARF LABORER x10(9)/L Monocytes 0.33 0.26 - 05/29/2021 [facility] 0.81 11:08 AM WHARF LABORER x10(9)/L Eosinophils 0.09 0.03 - 05/29/2021 [facility] 0.48 11:08 AM WHARF LABORER x10(9)/L Basophils 0.02 0.01 - 05/29/2021 [facility] 0.08 11:08 AM WHARF LABORER x10(9)/L Specimen Anatomical Collection Method Collection Time Receive d Time (Source) Location / / Volume Laterality Blood (Blood, 05/29/2021 10:09 05/29/2021 Venous) AM WHARF LABORER 10:11 AM WHARF LABORER Leonid Gonzalez M.D. LAB BLOOD ADD-ON Performing Organization Address City/State/ZIP Code Phon e Number [facility]- [address] [place] [address] [place] [address] System [address] documented in this encounter Visit Diagnoses Diagnosis Transplant Liver (HCC) - Primary Medication Therapy Chcf Not Anticoa gulant documented in this encounter Additional Health Concerns Infection Onset Date Last Indicated Resolved Time COVID19 Pending 05/31/2021 05/31/2021 05/31/2021 3:24 PM WHARF LABORER Assessment Noted Time PHQ-9 Depression Total Score: 4 11/28/2020 10:17 AM CD T documented as of this encounter Care Teams Solutions Analyst Relationship Specialty Start Date End Date Elsewhere, Pcp PCP - General Family Medicine 07/29/17 [facility] - Laboratory Medicine 04/12/20 [place] [address] documented as of this encounter
--- OUTSIDE RECORDS SUMMARY | 2022-04-13 12:13 | XMS_ITS | Encounter Summary ---
:1955 Author Organization [facility] Address [address] [place] [address] Care Team Providers Name Role Phone Elsewhere, Pcp Primary Care Provider Unavailable Encounter Details Date Type Department Care Team Description 05/23/2021 Hospital Department of [place], Chronic Kidne y Disease Stage 4 Glomerular Filtration Rate 15-29 (HCC); Encounter Laboratory Padmini Hernandez, Hypertension An d Chronic Kidney Disease Stage 4 (HCC); Medicine in [facility], C.N.P., Anemia; [place], [place] D.N.P. 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 ondansetron (ZOFRAN) 4 Take 1 tablet (4 mg 20 tablet 0 /02/2021 mg tablet total) by mouth every 8 (eight) hours as needed for nausea or vomiting. albuterol (ACCUNEB) 2.5 Inhale 3 mL (2.5 mg 540 mL 0 01/202105/24/2021 mg /3 mL nebulizer total) by solution nebulization 2 (two) times a day. budesonide (Pulmicort) Mix 1 ampule in 120 mL 6 07/18/19 21 07/30/2021 0.5 mg/2 mL nebulizer sinus irrigation solution bottle and irrigate twice daily. calcium carb/magnesium Take 2 tablets by 0 10/13/2021 oxid/D3 (CALCIUM mouth 2 (two) times MAGNESIUM + D ORAL) a day. Total of 700 mg of calcium, 350 mg of magnesium, and 400 IU of vitamin D cholecalciferol Take 1 capsule by 0 03/05/2013 (VITAMIN D3) 50 mcg mouth daily. (2,000 Unit) capsule doxazosin (CARDURA) 4 Take 1 tablet (4 mg 90 tablet 3 03/0507/25/2021 mg tabletIndications: total) by mouth at Hypertension Essential bedtime. Primary fluticasone propionate Administer 2 sprays 64 g 11 06/201905/24/2021 (FLONASE) 50 into each nostril 2 mcg/actuation nasal (two) times a day. spray ipratropium (ATROVENT) Administer 2 sprays 30 mL [...] mg MOUTH TWICE DAILY tabletIndications: Transplant Liver ([facility]) NIFEdipine XL Take 3 tablets (90 270 tablet 3 06/17/2020 (PROCARDIA XL) 30 mg 24 mg total) by mouth hr tablet daily. ofloxacin (FLOXIN) 0.3 Administer 4 drops 5 mL 0 12/2805/24/2021 % otic solution into the right ear 2 (two) times a day. Use 2 drops twice daily with ofloxacin drops (4 drops total) x 14 days [id number] Drink 1st portion of 1 kit 0 05/21/202107/2020 nel-QfTn-MEf-asb-C prep at 6 PM the (MOVIPREP) evening before. 2nd 100-7.5-2.691 gram per portion must be packet started 3 hours before and finished 2 hours prior to report time polyethylene Drink 1st portion of 4000 mL 0 05/22/2021 glycol-electrolytes prep at 6 PM the (GoLYTELY) evening before. 2nd 236-22.74-6.74 -5.86 portion must be gram solution started 3 hours before and finished 2 hours prior to report time prednisoLONE acetate Administer 2 drops 5 mL 0 021 05/24/2021 (PRED FORTE) 1 % into the right ear 2 ophthalmic suspension (two) times a day. Use 2 drops twice daily with ofloxacin drops x 14 days predniSONE (DELTASONE) Take 1 tablet (5 mg 90 tablet 3 06/2406/29/2021 5 mg tabletIndications: total) by mouth Transplant Liver ([facility]), daily. Medication Therapy Senior Living Not Anticoagulant sodium chloride USE 4 ML VIA 0 08/30/2020 021 (NEBUSAL) 3 % nebulizer NEBULIZER TWICE solution DAILY Spiriva Respimat 2.5 INHALE 2 PUFFS BY 4 g 0 01/09/20 21 07/26/2021 mcg/actuation inhaler MOUTH DAILY tacrolimus (PROGRAF) Take 2 capsules (1 360 capsule 3 202007/16/2021 0.5 mg mg total) by mouth 2 capsuleIndications: (two) times a day. 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 [address] [place] [phone] 04/25/2022 Office Visit Otorhinolaryngology Dex Matta APRN, C.N.P., M.S.N. [address] [place] [phone] 05/08/2022 Appointment Laboratory Medicine Angélica Granger P.A.-C. [address] [place] [phone] 05/08/2022 Clinical Admitting/Central Communication Scheduling 05/10/2022 Appointment Radiology Jeremie Rose M.D. [address] [place] [phone] 05/10/2022 Comprehensive Visit Orthopedic Surgery Warner Graves M.D. [address] [place] [address] [phone] 05/22/2022 Appointment Laboratory Medicine Angélica Granger P.A.-C. [address] [place] [address] [phone] 06/05/2022 Appointment Laboratory Medicine Angélica Granger P.A.-C. [address] [place] [phone] 06/19/2022 Appointment Laboratory Medicine Angélica Granger P.A.-C. [address] [place] [phone] 07/03/2022 Appointment Laboratory Medicine Angélica Granger P.A.-C. [address] [place] [phone] 07/17/2022 Appointment Laboratory Medicine Angélica Granger P.A.-C. [address] [place] [phone] 07/31/2022 Appointment Laboratory Medicine Angélica Granger P.A.-C. [address] [place] [phone] 08/14/2022 Appointment Laboratory Medicine Angélica Granger P.A.-C. [address] [place] [phone] 08/28/2022 Appointment Laboratory Medicine Angélica Granger P.A.-C. [address] [place] [phone] documented as of this encounter Procedures Procedure Name Priority Date/Time Associated Comments Diagnosis ALBUMIN, RANDOM, U Routine 05/23/2021 8:34 AM Chronic Kidney R esults for this CAR SEAT MAKER Disease Stage 4 procedure ar e in Glomerular the results Filtration Rate section. (HCC) Hypertension And Chronic Kidney Disease Stage 4 (HCC) Anemia Hyperparathyroidism Secondary (HCC) URINALYSIS WITH Routine 05/23/2021 8:34 AM Chronic Kidney Resu lts for this MICROSCOPIC CAR SEAT MAKER Disease Stage 4 procedure ar e in Glomerular the results Filtration Rate section. (HCC) Hypertension And Chronic Kidney Disease Stage 4 (HCC) Anemia Hyperparathyroidism Secondary (HCC) documented in this encounter Results (ABNORMAL) Albumin, Random, Urine (05/23/2021 8:34 AM CAR SEAT MAKER) [facility] Method Time Signature Microalbumin 357.9 mg/L 05/23/2021 CNFL 10:00 AM CAR SEAT MAKER Creatinine 78 mg/dL 05/23/2021 CNFL 10:00 AM CAR SEAT MAKER Albumin/Creatinin 459 (H) <17 mg/g 05/23/2021 CNFL e Ratio 10:00 AM CAR SEAT MAKER Specimen Anatomical Collection Method Collection Time Receive d Time (Source) Location / / Volume Laterality Urine (Urine, 05/23/2021 8:34 AM 05/23/20 9:39 Clean Catch) CAR SEAT MAKER AM CAR SEAT MAKER Padmini Barry APRN, C.N.P., D.N.P. LAB URINE OR DERABLES Performing Organization Address City/State/[facility] Code Phon e Number [address] [address] [place] [address] System in [address] (ABNORMAL) Urinalysis with Microscopic: Urine, Midstream (05/23/2021 8:34 AM CAR SEAT MAKER) [facility] Time Signature Source Urine, Urine, 05/23/2021 CNFL Midstream 9:39 AM CAR SEAT MAKER Clarity Clear Clear 05/23/2021 CNFL 9:50 AM CAR SEAT MAKER Color Yellow 05/23/2021 CNFL 9:50 AM CAR SEAT MAKER Comment: ----REFERENCE VALUE---- Colorless Yellow Bhakti Blood Small (A) Negative 05/23/2021 9:50 AM CAR SEAT MAKER [facility]FL Nitrite Negative Negative 05/23/2021 9:50 AM CAR SEAT MAKER [facility] Leukocyte Esterase Negative Negative 05/23/2021 9:50 AM CS T CNFL Protein 100 (A) mg/dL 05/23/2021 9:50 AM CAR SEAT MAKER CNFL Comment: ----REFERENCE VALUE---- Negative Trace Glucose Negative Negative mg/dL 05/23/2021 9:50 AM CAR SEAT MAKER CN [place] Ketones, QI(U) Negative Negative mg/dL 05/23/2021 9:[address] [facility] Bilirubin Negative Negative 05/23/2021 9:50 AM CAR SEAT MAKER [facility] pH 6.5 5.0 - 8.0 05/23/2021 9:50 AM CAR SEAT MAKER [facility] Specific [place] 1.015 1.001 - 1.035 05/23/2021 9:50 AM CAR SEAT MAKER CNFL Urobilinogen 0.2 0.2 - 1.0 mg/dL 05/23/2021 9:50 AM CS T [facility]FL White Blood Cells Occ-3 /hpf 05/23/2021 10:17 AM CS T CNFL Comment: ----REFERENCE VALUE---- Males: 0-3 Females: 0-10 Unknown: 0-10 Red Blood Cells Occ-2 0 - 2 /hpf 05/23/2021 10:17 AM CAR SEAT MAKER [facility]FL Specimen Anatomical Collection Method Collection Time Receive d Time (Source) Location / / Volume Laterality Urine (Urine, 05/23/2021 8:34 AM 05/23/20 9:39 Midstream) CAR SEAT MAKER AM CAR SEAT MAKER Padmini Barry APRN, C.N.P., D.N.P. LAB URINE OR DERABLES Performing Organization Address City/State/ZIP Code Phon e Number [address] [address] [place] [address] System [address] documented in this encounter Visit Diagnoses Diagnosis Chronic Kidney Disease Stage 4 Glomerula r Filtration Rate 15-29 (HCC) Hypertension And Chronic Kidney Disease Stage 4 (HCC) Anemia Hyperparathyroidism Secondary (HCC) documented in this encounter Additional Health Concerns Infection Onset Date Last Indicated Resolved Time COVID19 Pending 05/23/2021 05/23/2021 05/23/2021 11:53 AM CAR SEAT MAKER Assessment Noted Time PHQ-9 Depression Total Score: 4 11/28/2020 10:17 AM CD T documented as of this encounter Care Teams Shift Leader Relationship Specialty Start Date End Date Elsewhere, Pcp PCP - General Family Medicine 07/29/17 [facility] - Laboratory Medicine 04/12/20 [place] [phone] documented as of this encounter
--- OUTSIDE RECORDS SUMMARY | 2022-04-13 12:13 | XMS_ITS | Encounter Summary ---
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 [address] [place] [phone] 05/08/2022 Appointment Laboratory Medicine Angélica Granger P.A.-CDemetrius [address] [place] [phone] 05/08/2022 Clinical Admitting/Central Communication Scheduling 05/10/2022 Appointment Radiology Jeremie Rose M.D. [address] [place] [phone] 05/10/2022 Comprehensive Visit Orthopedic Surgery Warner Graves M.D. [address] [place] [address] [phone] 05/22/2022 Appointment Laboratory Medicine Angélica Granger P.A.-CDemetrius [address] [place] [phone] 06/05/2022 Appointment Laboratory Medicine Angélica Granger P.A.-C. [address] [place] [phone] 06/19/2022 Appointment Laboratory Medicine Angélica Granger P.A.-C. [address] [place] [phone] 07/03/2022 Appointment Laboratory Medicine Angélica Granger P.A.-C. [address] [place] [phone] 07/17/2022 Appointment Laboratory Medicine Angélica Granger P.A.-C. [address] [place] [phone] 07/31/2022 Appointment Laboratory Medicine Angélica Granger P.A.-C. [address] [place] [phone] 08/14/2022 Appointment Laboratory Medicine Angélica Granger P.A.-C. [address] [place] [address] [phone] 08/28/2022 Appointment Laboratory Medicine Angélica Granger P.A.-C. [address] [place] [phone] documented as of this encounter Visit Diagnoses Diagnosis Shortness Of Breath - Primary documented in this encounter Additional Health Concerns Infection Onset Date Last Indicated Resolved Time COVID19 Pending 05/23/2021 05/23/2021 05/23/2021 11:53 AM RESIDENT CARE COORDINATOR Assessment Noted Time PHQ-9 Depression Total Score: 4 11/28/2020 10:17 AM CD T documented as of this encounter Care Teams Motorboat Operator Relationship Specialty Start Date End Date Elsewhere, Pcp PCP - General Family Medicine 07/29/17 [facility] - Laboratory Medicine 04/12/20 [place] [phone] documented as of this encounter
--- OUTSIDE RECORDS SUMMARY | 2022-04-13 12:13 | XMS_ITS | Encounter Summary ---
:1955 Author Organization [facility] Address [address] [place] [address] Care Team Providers Name Role Phone Elsewhere, Pcp Primary Care Provider Unavailable Encounter Details Date Type Department Care Team Description 05/24/2021 - Hospital Encounter [facility] Ant Cordova M.D. [address] [place] [address] [facility] Renal [facility] [address] [place] [address] (Primary Dx) [facility], Third Floor [address] [place] [address] Social History Tobacco Use Types [...] at Date Recorded Male 05/16/2020 4:27 PM BILLER documented as of this encounter Last Filed Vital Signs Vital Sign Reading Time Taken Comments Blood Pressure 137/75 05/26/2021 2:30 PM BILLER Pulse 75 05/26/2021 2:30 PM BILLER Temperature 36.7 ??C (98.1 ??F) 05/26/2021 2:30 PM BILLER Respiratory Rate 15 05/26/2021 2:30 PM BILLER Oxygen Saturation 97% 05/26/2021 2:30 PM BILLER Inhaled Oxygen Concentration - - Weight 73.7 kg (162 lb 7.7 oz) 05/26/2021 10:57 AM BILLER Height 174 cm (5' 8.5) 05/25/2021 8:29 AM BILLER Body Mass Index 24.34 05/25/2021 8:29 AM BILLER documented in this encounter Discharge Summaries Suzette Henson M.D. - 05/26/2021 1:02 PM CST DISCHARGE SUMMARY BRIEF OVERVIEW Hospital: [facility] Discharge Provider: Rio Younger M.B.BDemetriusS. Primary Team: [facility] Medicine 3 ([facility]) Primary Care Providers: Elsewhere, Pcp, PA-C (General) No address on file Primary Care Provider Phone Number: None Primary Care Provider Fax Number: None Other Providers: None Admission Date: 05/24/2021 Discharge Date: 05/26/21 PRINCIPAL DIAGNOSIS Failure Renal SECONDARY DIAGNOSES Principal Problem: Failure Renal Active Problems: Cirrhosis Cryptogenic (HCC) Bipolar I Disorder (HCC) Transplant Liver (HCC) Chronic Kidney Disease NOS Immunodeficiency (HCC) Stenosis Renal Artery (HCC) Hypertension And Chronic Kidney Disease Stage 5 (HCC) Chronic Kidney Disease Stage 4 Glomerular Filtration Rate 15-29 (HCC) Pneumonitis Due To Inhalation Of Food And Vomit (HCC) Rhinosinusitis Chronic Anemia Hyponatremia Diarrhea Resolved Problems: * No resolved hospital problems. * DISCHARGE DISPOSITION Home or Self Care [1] ACTIVE ISSUES REQUIRING FOLLOW UP 1) Please follow up with your primary care provider as per the Patient appointment guide, if an appointment has not been made for you, you will be contacted by our schedulers to set one up. 2) Please see your physician sooner if you have concerns of worsening rectal bleeding or shortness of breath. 3) Please complete the full course of your Vancomycin 4 times a day, for the total duration of 10 days. 4) Do not resume your home use of torsemide until nephrology visit. Issue: Colonoscopy What is Needed: Rescheduling will be done on Monday 05/28 Follow-up Appointments Arranged: No Issue: PCP visit, post hospitalization What is Needed: Scheduling will be done on Monday 05/28 Follow-up Appointments Arranged: No OUTPATIENT FOLLOW UP Scheduled Appointments 05/30/2021 9:15 AM Padmini Barry APRN, C.N.P., D.N.P. Nephrology and Hypertension For appointment details refer to your Patient Appointment Guide. TEST RESULTS PENDING AT DISCHARGE Pending Labs None DETAILS OF HOSPITAL STAY REASON FOR ADMISSION Failure Renal HOSPITAL COURSE Introduction Mr. Bruce Singh is a 65 y.o. male with a comorbid history significant for autoimmune hepatitis status post liver transplant x2 in 1998 and 2012 on chronic immunosuppression, left renal artery stenosis status post stent placement, worsening stage 4 CKD on transplant list, bipolar disorder, chronic sinusitis with postnasal drip, hypertension, hyperlipidemia, hypothyroidism, recurrent c diff infection, aspiration pneumonia in the past, COVID-19 infection in October 2020, admitted on 05/24/2021 to [facility] 3 ([facility]) service for anemia evaluation and management. Prior to Admission He describes a longstanding history of anemia in the setting of chronic renal disease, worsening over the last year, refractory to treatment with Aranesp. He had occasional small amount of bright red blood per rectum over the years, intermittent, with no significant increase recently and 2 previous hemoccult negative tests in 2018 and 2019. He went to his annual visit with primary care in April, where a repeat hemoccult was found to be positive and a colonoscopy was ordered. ED Course On 05/23 he presented to the emergency department sent by his nephrology provider with a new hemoglobin drop from 7.5 to 6.7, with a exertional dyspnea and a productive cough over the past year, and a history of bronchiectasis with recurrent pneumonias. He has also diarrhea that resembles peanut butter for the last couple weeks, around to bowel movement today, he denies current blood per rectum or black stools, denies abdominal pain. He describes difficulty getting around the house and has to stop to take multiple breaks to catch his breath. He denies current fever or confusion, no changes on urinary output. Primary evaluation at the emergency department revealed increased creatinine and 4.9, sodium 128, mixed metabolic and respiratory alkalosis, nonchanging elevated troponin. With concerns of worsening renal failure in the setting of anemia, [facility] for direct admission. Hospital Course At arrival to the floor, he remained hemodynamically stable however with ongoing diarrhea. Blood work did show a hemoglobin of 6.5 and he was transfused 1 unit of blood with great clinical and laboratory response. Nephrology was consulted, recommending iron supplementation and anticipation of his Aranesp dose. On 05/26, his hemoglobin was stable, with no clinical signs of large bleed and no indication for urgent colonoscopy. His c difficile test came back positive and he was initiated on vancomycin QID with an expected duration of 10 days. We will plan for colonoscopy as outpatient when the vancomycin treatment is complete. He will be followed up shortly after discharge as outpatient. Disposition The patient was discharged to home on 05/26/21 in improved condition. They should follow up with nephrology on 05/30 regarding further treatment. CONSULTS ORDERED DURING THIS ADMISSION IP CONSULT TO DIETITIAN IP CONSULT TO CARE MANAGEMENT IP CONSULT TO SAMPLER TESTER SUPERVISOR [employer]SEMBLY IP CONSULT TO NEPHROLOGY CONDITION AT DISCHARGE improved Discharge instructions were provided to the patient and caregiver(s). ER documented in this encounter Discharge Instructions Discharge InstructionsMoose Murcia - 05/25/2021 7:18 AM CST You were discharged from the [facility] Medicine 3 ([facility]) Service. Please identify this service name if you call with questions after hospitalization. [facility] experts agree: You should get a COVID-19 vaccine as soon as it's available to you. ??? The vaccines that we???re recommending have been approved for safe use. ??? [facility] will continue to coordinate with state and local governments on future vaccine distribution phases. o If your primary care provider is at [facility] and you plan to receive your vaccination at [facility], please ensure that you have activated your Patient Portal at [employer] to allow [facility] to communicate to you about the scheduling process. ??? Practice social distancing, wear a mask properly outside your home, wash your hands frequently, and follow your state and local recommendations until the spread has stopped. ??? The vaccine may not be recommended to those with certain health conditions. Talk to your health care provider if you have questions about receiving the vaccine. ER AttachmentsThe following attachments cannot be sent through Care Everywhere. Multivitamins, Adult Formula (By mouth) (Azerbaijani)Vancomycin (By mouth) (Azerbaijani) documented in this encounter Medications at Time [...] (HCC), daily. Medication Therapy [facility] Not Anticoagulant Spiriva Respimat 2.5 INHALE 2 PUFFS BY 4 g 0 01/09/20 21 07/26/2021 mcg/actuation inhaler MOUTH DAILY tacrolimus (PROGRAF) Take 2 capsules (1 360 capsule 3 202007/16/2021 0.5 mg mg total) by mouth 2 capsuleIndications: (two) times a day. Transplant Liver (HCC), Medication Therapy [employer] Director Not Anticoagulant UNABLE TO FIND by nasal 0 10/12/2021 (alternating) route 2 (two) times a day. Azelastine 1mg to Sinus Rinse twice daily. [facility] documented as of this encounter Progress Notes Anthony Nino M.D. - 05/26/2021 2:37 PM CST NEPHROLOGY CONSULT SERVICE - PROGRESS NOTE Hospital Day 2 SUBJECTIVE I saw Mr. Singh today. No concern overnight. Feels much improved following 500mL NaHCO3 yesterday. OBJECTIVE Admission weight: 72.6 kg Weights for the past 120 hrs (Last 3 readings): Weight 05/26/21 1057 73.7 kg 05/24/21 1700 72.6 kg I/O 05/25 0000 05/25 2359 05/26 0000 05/26 2359 P.O. 900 1300 Red Blood Cells 330 Maintenance IV 216.7 Total Intake(mL/kg) 1446.7 (19.9) 1300 (17.6) Urine (mL/kg/hr) 1425 (0.8) Stool 0 Total Output 1425 Net +21.7 +1300 Unmeasured Stool Occurrence 3 x VITAL SIGNS Temperature: [36.6 ??C-37.1 ??C] 36.7 ??C Resp Rate: [15-18] 15 Blood Pressure: (110-152)/(57-79) 137/75 SpO2: [92 %-99 %] 97 % Pulse Rate: [68-78] 75 PHYSICAL EXAMINATION General appearance: alert and interactive Lungs: normal respiratory effort Heart: normal S1, S2; no murmur, gallop or rub Abdomen: benign, soft Extremities: no edema DIAGNOSTICS Results from last 7 days Lab Units 05/26/21 1109 05/26/21 0606 05/25/21 1235 HEMOGLOBIN g/dL 7.8* 7.2* 7.8* WBC x10(9)/L -- 3.9 3.6 PLATELETS AUTO x10(9)/L -- 182 188 Last 2 results Lab Units 05/26/21 0606 05/25/21 0505 SODIUM mmol/L 128* 129* POTASSIUM mmol/L 4.1 4.1 BICARBONATE S mmol/L 21* 20* BUN mg/dL 55* 58* CREATININE mg/dL 4.59* 4.72* CALCIUM mg/dL 7.4* 7.8* PHOSPHORUS INORGANIC mg/dL 4.4 4.9* MAGNESIUM mg/dL -- 2.5* ASSESSMENT / PLAN # HERNÁN # CKD stage 4 # Metabolic acidosis Mr. Bruce Singh is a 65 year old male with CKD 4-5 2/2 HTN on the transplant list, Left CAL a/p stent (2016). He is admitted with an acute on chronic anemia concerning for gastrointestinal bleed, recurrent C diff colitis, and worsening kidney function. ?? His elevated creatinine today is likely pre renal in the setting of diarrhea and GI blood loss. His creatinine was 4.9 yesterday at the outside hospital and was 4.75 today, so it relatively stable. Fornow, we recommend supplementing his oral intake with isotonic sodium bicarb in the setting of his diarrhea. He has been using Aranesp in the outpatient setting and is due for his next dose on the ninth, but we would prefer to give it to him now in the setting of his blood loss. He had previously been on iron infusions but has not had any since November and is not taking any iron supplements. Will therefore recommend Feraheme once today, once tomorrow, and one more time prior to discharge. We will work with his outpatient transplant nephrologists to ensure that he has close follow-up when he is dismissed from this day. ?? Recommendations: 1. Continue to hold torsemide 2. Additional 500 mL of D5 + isotonic sodium bicarbonate recommend rate of 100 cc/hour 3. Repeat Feraheme 510mg and Aranesp 100mcg subcutaneous on 06/11/21 4. Patient okay to undergo colonoscopy from Nephrology perspective. GoLYTELY is a safe prep option. 5. Nephrology follow-up set up for 05/30/2021 6. Please continue renal diet. 7. We will sign off at this time. Please contact the below pager if additional questions or concernsarise. ?? Standard Nephrology Recommendations: 1. Please obtain daily weights. 2. Document strict intake and output. 3. Avoid hypotension, with goal to maintain MAP >65 mmHg for adequate renal perfusion. 4. Avoid all nephrotoxins, if possible (contrast dye, unnecessary antibiotics, NSAIDs). 5. Renally dose-adjust all medications for GFR. 6. If patient is receiving dialysis, please order a renal dialysis diet. 7. If patient has chronic kidney disease, please order a renal CKD diet. This case was discussed with Nephrology residential sales consultant Dr. May. Please refer to their note for any additional details. Please contact the Nephrology A service pager at [phone] with any questions or concerns. If this note is pending, recommendations remain preliminary and subject to change until note has been signed. Anthony Nino M.D. Internal Medicine, PGY-2 Suzette Zarate M.D. - 05/26/2021 11:02 AM CST PROGRESS NOTE [facility] Medicine 3 ([facility]) Service SUBJECTIVE CHIEF CONCERN Reason for admission: Failure Renal [N19] Date of admission: 05/24/2021 Hospital day: 2 INTERVAL EVENTS Mr. Singh reports feeling better after the blood transfusion, however he continues to have 4 bowelmovements a day with diarrhea. No blood per rectum. No other complaints. His cough is unchanged from admission, with no increasing oxygen requirement, however continues to feel thick secretions on the back of his throat, well known prior to hospitalization. Despite radiographic changes concerning for aspiration, his last speech pathology evaluation was and November with no signs of aspiration or dysphagia, and symptoms are unchanged since then. OBJECTIVE VITALS Temperature: [36.5 ??C-37.1 ??C] 37 ??C Resp Rate: [14-18] 18 Blood Pressure: (110-152)/(57-79) 110/57 SpO2: [92 %-99 %] 92 % Pulse Rate: [68-78] 78 PHYSICAL EXAM Vitals: Reviewed. Stable. General: Thin male in no distress, comfortably resting in the bed. Head: Normocephalic and atraumatic. Eyes: Conjunctivae clear. PERRL. Nose: Nares patent. Clear rhinorrhea. No blood. Mouth/Throat: MMM. Cardiovascular: Normal rate, regular rhythm. No MRG. No JVD.. Respiratory: Effort normal. Breath sounds CTAB. Bilateral diffuse Velcro sounds and mild crackles inbases. Abdomen: Globose, Soft. NT/ND. Bowel sounds normal. Extremities: No pedal edema. Normal DP/PT pulses. No ulcers or trophic changes. Neurologic: AA&O x4. No focal deficits. Skin: Warm/dry/intact. Psychiatric: Mood and affect appropriate for situation. DIAGNOSTICS Laboratory Results I have reviewed the relevant laboratory and diagnostic studies since presentation. Notable results include: 3.9 \ 7.2* / 182 / 21.3* \ 05/26 0606 128* 94* 55* / 100 -- 21* 4.59* \ 05/26 0606 Mag 2.5 Phos 4.9 GI pathogen panel: C diff and EPEC positive Imaging & Ancillary Studies Diagnostic Review: Imaging Last week: DX Chest AP or PA and Lateral 2 Views Result Date: 05/23/2021 Impression: Nodular opacities in the left base may be due to aspiration or infection. Pleural thickening and/or scarring. Degenerative changes of the spine. ASSESSMENT / PLAN Bruce Singh is a 65 y.o. male with a comorbid history significant for autoimmune hepatitis status post liver transplant x2 in 1998 and 2012 on chronic immunosuppression, left renal artery stenosis status post stent placement,??worsening stage??4??CKD??on transplant list,??bipolar disorder,??chronic sinusitis with postnasal drip, hypertension, hyperlipidemia, hypothyroidism,??recurrent c diff infection,??aspiration pneumonia in the past, COVID-19 infection in October 2020, presenting for severe anemia and worsening renal failure. Given his history of chronic anemia on Aranesp and positive hemoccul t,??the presentation is concerning for blood loss anemia superimposed on chronic anemia of renal disease. At presentation, he has no signs of large volume bleeding and is hemodynamically stable, with no indication for urgent colonoscopy. Also, concerning on his case is the progressive renal failure, which further complicates the colonoscopy prep. Given his repeat hemoglobin at 6.5 we will go ahead with a transfusion. Hemolysis labs pending. Nephrology consult was ordered. We will continue to observe his hemoglobin trend and revisit urgency of colonoscopy as it changes. His GI pathogen panel came back positive. In the setting of prior negative test, current diarrhea and immunocompromise, we will treat it with a 10 day course of vancomycin. He has not failed vancomycintherapy previously. In summary, the gentleman hospitalized for severe anemia status post 1 unit of blood transfused yesterday, C difficile diarrhea on vancomycin, Acute Kidney Injury on CKD stage IV likely in the setting of intravascular depletion with close follow-up as outpatient. Today, he is feeling better after 1 unit of blood given and we have addressed his iron deficiency. He has no visible blood loss per rectum or melena. His creatinine has improved after IV fluids yesterday. We will recheck his hemoglobin in the afternoon, and if stable, he might discharge with close follow-up as outpatient. ?? # Anemia of renal disease # Query anemia secondary to chronic blood loss - hemoglobin afternoon - negative hemolysis labs - Transfusion if Hb < 7 ?? # Low gastrointestinal bleeding - no clinically visible active bleeding - colonoscopy as outpatient, per Nephrology Mike is safe in his case ?? # Diarrhea # Recurrent c. Difficile infection - Vancomycin 125 mg QID 10 days; might consider extended therapy pending on clinical course ?? # Autoimmune cirrhosis s/p liver transplant x 2 # Transplant Liver (HCC) # Immunodeficiency (HCC) - Tacrolimus level lower than therapeutic; we will discuss with LTXP and pharmacy - Continue home mycophenolate, tacrolimus, prednisone ?? # Bipolar I Disorder (HCC) - Continue home lamotrigine ?? # Chronic Kidney Disease Stage 4 # Hyponatremia # Stenosis Renal Artery s/p Renal Artery Stent - Nephrology consult - Monitor I/O - Daily BMP ?? # Pneumonitis Due To Inhalation Of Food And Vomit (HCC) # Rhinosinusitis Chronic - Continue home montelukast, loratadine ?? # Hypertension - Continue home aspirin, nifedipine - Hold home torsemide ?? Diet: renal failure/dialysis diet Tubes/lines: PIV VTE prophylaxis: heparin Code status: Full Code Disposition: Home with expected discharge date 2-3 days from today's date ?? Plan discussed with [facility] Medicine 3 ([facility]) Produce Team Member, Rio Younger M.B.B.S. Please page the [facility] Medicine 3 ([facility]) service pager at [phone] with any questions. ?? -- Suzette Henson M.D. PGY-1P - Internal Medicine ER Rio Younger M.B.B.S. - 05/25/2021 1:10 PM CST I have seen and examined Mr. Bruce Singh today and discussed their case in detail with the Medicine [address]. [address]de Ellyn Bolanos's progress note of today for details. Receiving a unit of blood for anemia. Tacrolimus level is on the low side. Will discuss with liver transplant. Nephrology consult for ongoing worsening of kidney function. For the remainder of the plan, please refer to the resident note of today. Suzette Zarate M.D. - 05/25/2021 1:00 PM CST PROGRESS NOTE [facility] Medicine 3 ([facility]) Service SUBJECTIVE CHIEF CONCERN Reason for admission: Failure Renal [N19] Date of admission: 05/24/2021 Hospital day: 1 INTERVAL EVENTS No acute events overnight, continued to have some diarrhea, with no signs of bright red blood per rectum or melena. This morning his hemoglobin came back low and he will receive 1 unit of blood. No other complaints. OBJECTIVE VITALS Temperature: [36.3 ??C-36.9 ??C] 36.8 ??C Heart Rate: [82] 82 Resp Rate: [14-20] 14 Blood Pressure: (113-144)/(56-87) 123/70 SpO2: [95 %-100 %] 96 % Pulse Rate: [62-83] 70 PHYSICAL EXAM Vitals: Reviewed. Stable. General: Thin male in no distress, comfortably resting in the bed. Head: Normocephalic and atraumatic. Eyes: Conjunctivae clear. PERRL. Nose: Nares patent. Clear rhinorrhea. No blood. Mouth/Throat: MMM. Cardiovascular: Normal rate, regular rhythm. No MRG. No JVD.. Respiratory: Effort normal. Breath sounds CTAB. Bilateral diffuse Velcro sounds and mild crackles inbases. Abdomen: Globose, Soft. NT/ND. Bowel sounds normal. Extremities: No pedal edema. Normal DP/PT pulses. No ulcers or trophic changes. Neurologic: AA&O x4. No focal deficits. Skin: Warm/dry/intact. Psychiatric: Mood and affect appropriate for situation. DIAGNOSTICS Laboratory Results I have reviewed the relevant laboratory and diagnostic studies since presentation. Notable results include: 3.0* \ 6.5* / 156 / 20.3* \ 05/25 0505 129* 95* 58* / 117 -- 20* 4.72* \ 05/25 0505 Mag 2.5 Phos 4.9 GI pathogen panel: C diff and EPEC positive Imaging & Ancillary Studies Diagnostic Review: Imaging Last week: DX Chest AP or PA and Lateral 2 Views Result Date: 05/23/2021 Impression: Nodular opacities in the left base may be due to aspiration or infection. Pleural thickening and/or scarring. Degenerative changes of the spine. ASSESSMENT / PLAN Bruce Singh is a 65 y.o. male with a comorbid history significant for autoimmune hepatitis status post liver transplant x2 in 1998 and 2012 on chronic immunosuppression, left renal artery stenosis status post stent placement,??worsening stage??4??CKD??on transplant list,??bipolar disorder,??chronic sinusitis with postnasal drip, hypertension, hyperlipidemia, hypothyroidism,??recurrent c diff infection,??aspiration pneumonia in the past, COVID-19 infection in October 2020, presenting for severe anemia and worsening renal failure. Given his history of chronic anemia on Aranesp and positive hemoccul t,??the presentation is concerning for blood loss anemia superimposed on chronic anemia of renal disease. At presentation, he has no signs of large volume bleeding and is hemodynamically stable, with no indication for urgent colonoscopy. Also, concerning on his case is the progressive renal failure, which further complicates the colonoscopy prep. Given his repeat hemoglobin at 6.5 we will go ahead with a transfusion. Hemolysis labs pending. Nephrology consult was ordered. We will continue to observe his hemoglobin trend and revisit urgency of colonoscopy as it changes. His GI pathogen panel came back positive. In the setting of prior negative test, current diarrhea and immunocompromise, we will treat it with a 10 day course of vancomycin. He has not failed vancomycintherapy previously. ?? # Anemia of renal disease # Query anemia secondary to chronic blood loss - CBC, hemolysis studies, smear, reticulocyte - Transfuse 1 unit today - Transfusion if Hb < 7 ?? # Low gastrointestinal bleeding - Monitor output and BRBPR ?? # Diarrhea # Recurrent c. Difficile infection - Vancomycin 125 mg QID 10 days; might consider extended therapy pending on clinical course ?? # Autoimmune cirrhosis s/p liver transplant x 2 # Transplant Liver (HCC) # Immunodeficiency (HCC) - Tacrolimus level lower than therapeutic; we will discuss with LTXP and pharmacy - Continue home mycophenolate, tacrolimus, prednisone ?? # Bipolar I Disorder (HCC) - Continue home lamotrigine ?? # Chronic Kidney Disease Stage 4 # Hyponatremia # Stenosis Renal Artery s/p Renal Artery Stent - Nephrology consult - Monitor I/O - Daily BMP ?? # Pneumonitis Due To Inhalation Of Food And Vomit (HCC) # Rhinosinusitis Chronic - Continue home montelukast, loratadine ?? # Hypertension - Continue home aspirin, nifedipine - Hold home torsemide ?? Diet: renal failure/dialysis diet Tubes/lines: PIV VTE prophylaxis: heparin Code status: Full Code Disposition: Home with expected discharge date 2-3 days from today's date ?? Plan discussed with [facility] Medicine 3 ([facility]) Produce Team MemberAren Richard M, M.B.BDemetriusS. Please page the T Medicine 3 ([facility]) service pager at [phone] with any questions. ?? -- Suzette Henson M.D. PGY-1P - Internal Medicine ER Adam Rodriguez Pharm.DDemetrius, R.Ph. - 05/25/2021 9:17 AM CST Pharmacist Progress Note Reason for admission: anemia, renal failure PMH: autoimmune hepatitis s/p liver transplant x2 (1998, 2012), CKD-IV, bipolar disorder, chronic sinusitis, HTN, HLD, hypothyroidism OBJECTIVE Home medications: ?? Held: multivitamin, torsemide ?? Changed: none ASSESSMENT / PLAN 1. HERNÁN on CKD - SCr 4.72, which is up from baseline of approximately 3.6-3.7. eCrCl at the moment is~15 mL/min. Awaiting tacrolimus level (drawn this morning at 05:00 so will slight OVERestimate true trough level). I have reviewed the rest of his medication profile for appropriate renal dosing. 2. Liver transplant - continues on MMF 500 mg BID, tacrolimus 1 mg BID (level pending), and prednisone 5 mg daily. Adam Rodriguez Pharm.D., R.Ph. ER Rachelle Maldonado 05/25/2021 8:22 AM CST Clinical Nutrition: Initial Assessment Clinical Nutrition was requested to evaluate patient for positive nursing baseline nutrition screen with a MST score of 2 or greater and assessment of nutritional status SUBJECTIVE Mr. Singh is a 65 y.o. male admitted for concerns for an acute drop in his hemoglobin and also worsening of his renal function. Prior medical history of autoimmune hepatitis status post liver transplant x2 in 1998 and 2012 on chronic immunosuppression, left renal artery stenosis status post stent placement, CKD, chronic sinusitis with postnasal drip, hypertension, hyperlipidemia, hypothyroidism, aspiration pneumonia in the past, COVID-19 infection in October 2020. Completed visit with patient today as part of face to face care. Current Nutrition (since admission): discussed ONS options, patient has sheet and will order accordingly. Discussed choosing ONS for fluids with meals. Percentage of Meals Eaten for the past 72 hrs: Meals (%) 05/25/21 0825 75 05/24/21 2100 100 05/24/21 1900 100 Nutrition history: Patient experiencing dysgeusia and eating less than usual, appetite intact, prefers sweeter foods. Typically eatings big breakfast and vascular surgeon lunches and dinner, also experiencing early satiety. Eating ~75% of baseline over the last year. Occasionally uses oat Premier Portein (150 kcals, 20 g protein) however not consistently. Food Intolerance: garlic Nutrition education/counseling: Discussed methods to increase intake with altered taste. OBJECTIVE Current nutrition orders: Current Diet Adult Diet Regular starting at 05/24 1729 Medications: prednisone, tacrolimus Pertinent Labs: Last 2 results Lab Units 05/25/21 0505 05/24/21 1043 05/24/21 1040 05/24/21 1039 05/23/21 1137 05/23/21 0834 POTASSIUM mmol/L 4.1 -- -- -- -- -- EXT POTASSIUM mmol/L -- -- -- 4.3 -- -- POC POTASSIUM VENOUS mmol/L -- -- -- -- 3.7 -- EXT POC POTASSIUM VENOUS mmol/L -- -- 4.1 -- -- -- POTASSIUM P mmol/L -- -- -- -- 3.9 4.1 EXT BUN mg/dL -- -- -- 56* -- -- BUN P mg/dL -- -- -- -- 59* 55* BUN mg/dL 58* -- -- -- -- -- CREATININE mg/dL 4.72* -- -- -- -- -- EXT CREATININE mg/dL -- -- -- 4.44* -- -- CREATININE P mg/dL -- -- -- -- 4.31* 4.25* EXT POC CREATININE mg/dL -- 4.90* -- -- -- -- CRTS1 EGFR NON BLACK mL/min/BSA <15* -- -- -- -- -- CREP2 EGFR P mL/min/BSA -- -- -- -- <15* <15* EXT EGFR NON ml/min/1.73m2 -- 12* -- 13* -- -- CRTS1 EGFR BLACK mL/min/BSA <15* -- -- -- -- -- CREP2 EGFR P mL/min/BSA -- -- -- -- 15* 16* EXT ESTIMATED GLOMERULAR FILTRATE ml/min/1.73m2 -- 14* -- 16* -- -- Anthropometrics: Height: 174 cm Admission Weight: 72.6 kg (05/24/2021) [place] Body Weight (Calculated) : 69.3 kg BMI (Calculated): 24 kg/m?? Weight change since admission: 0 kg Weight history: 07/03/20 (82.4 kg) 08/31/20 (81.3 kg) 01/12/21 (76.8 kg) 05/24/21 (72.6 kg) - weight loss of 11.9% in 11 months, not signficant per ASPEN criteria. Estimated Needs: Total Calorie Needs: 4033-9538 calories/day Method to Estimate Energy Needs: Hernandez-Stites (Basal to Basal + 20%) Weight Used for Equation Calculations: 72.6 kg Total Protein Needs: 44 - 73 grams/day (Method to Estimate Protein Needs (g/kg): 0.6 - 1 gm/kg) Weight Used to Calculate Protein Needs (Kg): 72.6 kg Nutrition Diagnosis: Inadequate protein-energy intake related to dysgeusia as evidenced by mild fat loss, moderate muscleloss, eating ~75% of baseline intake over the last 12 months and weight loss of 11.9% in the last 12months Nutrition Diagnosis Reassessment: Ongoing Malnutrition Criteria: Average estimated Intake: Less than 75% for 3 or more months Weight Loss: No Change Body Fat: Mild Loss Muscle Mass: Moderate Loss Nutritional Status: Non-severe (moderate) Malnutrition Malnutrition in the Context of: Chronic Illness ASSESSMENT / PLAN Patient meets ASPEN/AND criteria for Non-severe (moderate) Malnutrition (05/25/2021 8:30 AM) See Nutrition Focused Physical Findings section for details. Nutrition Intervention: Interventions: Increase nutrient intake with small, frequent meals and/or snacks,Medical food supplement,Vitamin and mineral supplements,Provide counseling strategies to apply nutrition knowledge,Provide education to increase nutrition knowledge. Recommendations: ??? Multivitamin with minerals Monitoring/Evaluation: Nutrition parameter to monitor: Meals/Supplement Intake,Comparative Standards,Weight Status Desired Outcome: patient will avoid developing severe malnutrition while in the hospital. Patient Goal(s): 1. None at this time. For questions about patient's nutritional care please contact pager [phone] on weekdays or [phone] on weekends/holidays. ER Bryan Martins - 05/24/2021 6:33 PM CST Images from the original note were not included. Admission Medication History Note Adherence issues: No concerns Medication list source: Patient and Family member Prior to Admission Medications Med List Status: Pharmacy Complete Set By: Bryan Martins at 05/24/2021 6:32 PM Taking? Last Dose Informant Start Date End Date LT acetaminophen (TYLENOL) 500 mg tablet Self 06/18/13 -- Take 1 tablet by mouth every 6 (six) hours as needed. Pain. No more than 2000 mg per day. amoxicillin (AMOXIL) 500 mg capsule Self 02/24/18 -- Take 4 capsules by mouth as directed. Prior to dental procedures aspirin (ASPIRIN CHILDRENS) 81 mg chewable tablet 05/23/2021 Self 09/03/17 -- Chew 81 mg daily. atorvastatin (LIPITOR) 10 mg tablet 05/23/2021 Self 03/05/21 -- TAKE 1 TABLET(10 MG) BY MOUTH DAILY benzonatate (TESSALON PERLES) 100 mg capsule Self 01/04/21 -- Take 100 mg by mouth. Notes: Uses PRN budesonide (Pulmicort) 0.5 mg/2 mL nebulizer solution Self 07/18/20 -- Mix 1 ampule in sinus irrigation bottle and irrigate twice daily. calcium carb/magnesium oxid/D3 (CALCIUM MAGNESIUM + D ORAL) 05/23/2021 Self -- -- Take 2 tablets by mouth 2 (two) times a day. Total of 700 mg of calcium, 350 mg of magnesium, and 400 IU of vitamin D coenzyme Q10 (CO Q-10) 200 mg capsule 05/23/2021 Self 07/07/17 -- Take 1 capsule by mouth daily. darbepoetin michelle-polysorbate (Aranesp, in polysorbate,) 60 mcg/0.3 mL injection Past Month Self 01/09/21 06/22/21 Inject 0.3 mL (60 mcg total) under the skin once for 1 dose. Hold if Hgb greater than 11 g/dL. Giveonce every 28 days. doxazosin (CARDURA) 4 mg tablet 05/23/2021 Self 03/05/21 -- Take 1 tablet (4 mg total) by mouth at bedtime. ipratropium (ATROVENT) 21 mcg (0.03 %) nasal spray Self 01/30/21 -- Administer 2 sprays into each nostril 2 (two) times a day. upto 5 times daily as needed. lamoTRIgine (LaMICtal) 200 mg tablet 05/24/2021 Self 10/03/20 -- TAKE 1 TABLET BY MOUTH TWICE DAILY levothyroxine (SYNTHROID, LEVOTHROID) 25 mcg tablet 05/24/2021 Self 12/12/20 -- Take 1 tablet (25 mcg total) by mouth every morning before breakfast. loratadine (CLARITIN) 10 mg tablet 05/23/2021 Self -- -- Take 10 mg by mouth at bedtime. montelukast (SINGULAIR) 10 mg tablet 05/23/2021 Self -- -- Take 10 mg by mouth at bedtime. multivitamin tablet 05/24/2021 Self 06/18/13 -- Take 1 tablet by mouth daily. Maintenance mycophenolate (CELLCEPT) 500 mg tablet 05/24/2021 Self 11/06/20 -- TAKE 1 TABLET BY MOUTH TWICE DAILY NIFEdipine XL (PROCARDIA XL) 30 mg 24 hr tablet 05/23/2021 Self 06/17/20 06/17/21 Take 3 tablets (90 mg total) by mouth daily. Notes: Takes in the PM ondansetron (ZOFRAN) 4 mg tablet Self 11/29/20 -- Take 1 tablet (4 mg total) by mouth every 8 (eight) hours as needed for nausea or vomiting. predniSONE (DELTASONE) 5 mg tablet 05/24/2021 Self 07/20/20 -- Take 1 tablet (5 mg total) by mouth daily. Notes: Takes in AM Spiriva Respimat 2.5 mcg/actuation inhaler Self 01/08/21 -- INHALE 2 PUFFS BY MOUTH DAILY Notes: Uses PRN tacrolimus (PROGRAF) 0.5 mg capsule 05/24/2021 Self 07/20/20 -- Take 2 capsules (1 mg total) by mouth 2 (two) times a day. Notes: Liver Transplant Z 94.4 torsemide (DEMADEX) 10 mg tablet Self 02/22/21 02/22/22 Take 3 tablets (30 mg total) by mouth daily. Notes: Takes in AM UNABLE TO FIND Self -- -- by nasal (alternating) route 2 (two) times a day. Azelastine 1mg to Sinus Rinse twice daily. [facility] ER documented in this encounter H&P Notes Rio Younger M.B.B.S. - 05/24/2021 5:35 PM CST I have independently seen and examined Mr. Bruce Singh. I have discussed the history and examination with the medicine team, independently reviewed the salient features, and agree with the findings and plan as documented in Dr. Henson's admission note, with the following comments: #1 Failure Renal Mr. Singh is admitted in the context of worsening renal failure, hyponatremia, anemia and recent epistaxis. Overall, he is symptomatically stable and at his recent baseline. Plan to consult Nephrology. Plan to check a tacrolimus trough level. Plan to trend his hemoglobin. Deferring colonoscopy for now. We will observe him closely. Please refer to Dr. Henson's admission note documentation for additional details about our team's plan of care. Counseling was provided [id number] at bedside. I personally spent over half of a total 70 minutes in counseling and coordination of care. ER Suzette Henson M.D. - 05/24/2021 4:45 PM CST ADMISSION HISTORY & PHYSICAL EXAM RST Medicine 3 ([facility]) Service SUBJECTIVE CHIEF CONCERN Failure Renal HISTORY OF PRESENT ILLNESS Mr. Bruce Singh is a 65 y.o. male with a comorbid history significant for autoimmune hepatitis status post liver transplant x2 in 1998 and 2012 on chronic immunosuppression, left renal artery stenosis status post stent placement, worsening stage 4 CKD on transplant list, bipolar disorder, chronic sinusitis with postnasal drip, hypertension, hyperlipidemia, hypothyroidism, recurrent c diff infection, aspiration pneumonia in the past, COVID-19 infection in October 2020, admitted on 05/24/2021 to [facility] Medicine 3 ([facility]) service for anemia evaluation and management. He describes a longstanding history of anemia in the setting of chronic renal disease, worsening over the last year, refractory to treatment with Aranesp. He had occasional small amount of bright red blood per rectum over the years, intermittent, with no significant increase recently and 2 previous hemoccult negative tests in 2018 and 2019. He went to his annual visit with primary care in April, where a repeat hemoccult was found to be positive and a colonoscopy was ordered and it was scheduled originally to tomorrow. Yesterday, he presented to the emergency department sent by his nephrology provider with a new hemoglobin drop from 7.5 to 6.7, with a exertional dyspnea and a productive cough over the past year, and a history of bronchiectasis with recurrent pneumonias. He has also diarrhea that resembles peanut butter for the last couple weeks, around to bowel movement today, he denies current blood per rectum or black stools, denies abdominal pain. He describes difficulty getting around the house and has to stopto take multiple breaks to catch his breath. He denies current fever or confusion, no changes on urinary output. Primary evaluation at the emergency department revealed increased creatinine and 4.9, sodium 128, mixed metabolic and respiratory alkalosis, nonchanging elevated troponin. With concerns of worsening renal failure in the setting of anemia, the saffire team contact patient for direct admission. At arrival to the floor, he endorses the history described above, with no new concerns. Per ED report, he was having some epistaxis, however the patient has no nose bleeding at the moment. REVIEW OF SYSTEMS Pertinent items are noted in HPI. MEDICAL HISTORY He has a past medical history of Blood Transfusion No Diagnosis (2012), Chronic Kidney Disease Stage4 Glomerular Filtration Rate 15-29 (HCC), Concussion Loss Of Consciousness Unspecified Duration Initial (2012), Coronary Artery Disease (Unspecified) (2015), Hepatitis Autoimmune (HCC), Hyperlipidemia (2015), Hypertension NOS (2014), Other Complications Of Liver Transplant (HCC), and Other Injury Of Unspecified Body Region. He has a past surgical history that includes Tympanostomy tube placement (Right, 12/23/2016); Transplant Donor Liver (N/A, 05/25/1999); Umbilical hernia repair (N/A, 09/03/2013); Tympanostomy tube placement (Right, 06/02/2017); Transplant Donor Liver (N/A, 06/13/2013); Extracorporealshock wave lithotripsy (N/A, 04/29/2013); ERCP (02/12/2012); ERCP w/ plastic stent placement (12/12/2011); ERCP (12/07/2011); ERCP (09/24/2011); Organ transplant (2012); Vasectomy (1989); and Other surgical history (2009). His family history includes Coronary artery disease in his father and mother; Heart attack in his father and mother; Heart disease in his father and mother; Hypertension in his mother; Prostate cancer in his father; Skin cancer in his father. He reports that he has never smoked. He has never used smokeless tobacco. He reports that he does not drink alcohol and does not use drugs. He is allergic to citalopram, ibuprofen, olanzapine, quetiapine, cefixime, ciprofloxacin, erythromycin base, and erythromycin. MEDICATIONS Current Outpatient Medications Medication Instructions ??? acetaminophen (TYLENOL) 500 mg tablet 1 tablet, oral, Every 6 hours PRN, Pain. No more than 2000mg per day. ??? amoxicillin (AMOXIL) 500 mg capsule 4 capsules, oral, As Directed, Prior to dental procedures ??? Aranesp (in polysorbate) 60 mcg, subcutaneous, Once, Hold if Hgb greater than 11 g/dL. Give onceevery 28 days. ??? aspirin (ASPIRIN CHILDRENS) 81 mg, oral, Daily ??? atorvastatin (LIPITOR) 10 mg tablet TAKE 1 TABLET(10 MG) BY MOUTH DAILY ??? benzonatate (TESSALON PERLES) 100 mg, oral ??? budesonide (Pulmicort) 0.5 mg/2 mL nebulizer solution Mix 1 ampule in sinus irrigation bottle and irrigate twice daily. ??? calcium carb/magnesium oxid/D3 (CALCIUM MAGNESIUM + D ORAL) 2 tablets, oral, 2 times daily, Total of 700 mg of calcium, 350 mg of magnesium, and 400 IU of vitamin D ??? coenzyme Q10 (CO Q-10) 200 mg capsule 1 capsule, oral, Daily ??? doxazosin (CARDURA) 4 mg, oral, Daily at bedtime ??? ipratropium (ATROVENT) 21 mcg (0.03 %) nasal spray 2 sprays, each nostril, 2 times daily, upto 5times daily as needed. ??? lamoTRIgine (LaMICtal) 200 mg tablet TAKE 1 TABLET BY MOUTH TWICE DAILY ??? levothyroxine (SYNTHROID, LEVOTHROID) 25 mcg, oral, Daily before breakfast ??? loratadine (CLARITIN) 10 mg, oral, Daily at bedtime ??? montelukast (SINGULAIR) 10 mg, oral, Daily at bedtime ??? multivitamin tablet 1 tablet, oral, Daily, Maintenance ??? mycophenolate (CELLCEPT) 500 mg tablet TAKE 1 TABLET BY MOUTH TWICE DAILY ??? NIFEdipine XL (PROCARDIA XL) 90 mg, oral, Daily ??? ondansetron (ZOFRAN) 4 mg, oral, Every 8 hours PRN ??? predniSONE (DELTASONE) 5 mg, oral, Daily ??? Spiriva Respimat 2.5 mcg/actuation inhaler INHALE 2 PUFFS BY MOUTH DAILY ??? tacrolimus (PROGRAF) 1 mg, oral, 2 times daily ??? torsemide (DEMADEX) 30 mg, oral, Daily ??? UNABLE TO FIND nasal (alternating), 2 times daily, Azelastine 1mg to Sinus Rinse twice daily. [facility] OBJECTIVE VITALS BP 113/58 (BP Location: Left arm;Upper, Patient Position: Lying) Pulse 82 Temp 36.9 ??C (Oral) Resp 14 Ht 174 cm Wt 72.6 kg SpO2 96% BMI 23.97 kg/m?? PHYSICAL EXAM Vitals: Reviewed. Stable. General: Thin male in no distress, comfortably resting in the bed. Head: Normocephalic and atraumatic. Eyes: Conjunctivae clear. PERRL. Nose: Nares patent. Clear rhinorrhea. No blood. Mouth/Throat: MMM. Cardiovascular: Normal rate, regular rhythm. No MRG. No JVD.. Respiratory: Effort normal. Breath sounds CTAB. Bilateral diffuse Velcro sounds and mild crackles inbases. Abdomen: Globose, Soft. NT/ND. Bowel sounds normal. Extremities: No pedal edema. Normal DP/PT pulses. No ulcers or trophic changes. Neurologic: AA&O x4. No focal deficits. Skin: Warm/dry/intact. Psychiatric: Mood and affect appropriate for situation. DIAGNOSTICS Laboratory Results I have reviewed the relevant laboratory and diagnostic studies since presentation. Notable results include: 3.0* \ 6.5* / 156 / 20.3* \ 05/25 0505 129* 95 58* / 117 4.1 20* 4.72* \ 05/25 0505 Mag 2.5 Phos 4.9 Imaging & Ancillary Studies Diagnostic Review: Imaging Last week: DX Chest AP or PA and Lateral 2 Views Result Date: 05/23/2021 Impression: Nodular opacities in the left base may be due to aspiration or infection. Pleural thickening and/or scarring. Degenerative changes of the spine. Emergency Department Course Final Diagnoses: as of 05/25/21 0637 Failure Renal ASSESSMENT / PLAN Bruce Singh is a 65 y.o. male with a comorbid history significant for autoimmune hepatitis status post liver transplant x2 in 1998 and 2012 on chronic immunosuppression, left renal artery stenosis status post stent placement, worsening stage 4 CKD on transplant list, bipolar disorder, chronic sinusitis with postnasal drip, hypertension, hyperlipidemia, hypothyroidism, recurrent c diff infection, aspiration pneumonia in the past, COVID-19 infection in October 2020, presenting for severe anemia andworsening renal failure. Given his history of chronic anemia on Aranesp and positive hemoccult, the presentation is concerning for blood loss anemia superimposed on chronic anemia of renal disease. At presentation, he has no signs of large volume bleeding and is hemodynamically stable, with no indication for urgent colonoscopy. Also, concerning on his case is the progressive renal failure, which further complicates the colonoscopy prep. He has a history of recurrent c diff infection and extended diarrhea since last antibiotic course, worsened for the last 2 weeks. We will collect a pathogen panel to rule out active c diff colitis. # Anemia of renal disease # Query anemia secondary to chronic blood loss - CBC, hemolysis studies, smear, reticulocyte - Transfusion if Hb < 7 # Low gastrointestinal bleeding - Monitor output and BRBPR # Diarrhea # Hx recurrent c. Difficile infection - GI pathogen panel # Autoimmune cirrhosis s/p liver transplant x 2 # Transplant Liver (HCC) # Immunodeficiency (HCC) - Tacrolimus level - Continue home mycophenolate, tacrolimus, prednisone # Bipolar I Disorder (HCC) - Continue home lamotrigine # Chronic Kidney Disease Stage 4 # Hyponatremia # Stenosis Renal Artery s/p Renal Artery Stent - Nephrology consult - Monitor I/O - Daily BMP # Pneumonitis Due To Inhalation Of Food And Vomit (HCC) # Rhinosinusitis Chronic - Continue home montelukast, loratadine # Hypertension - Continue home aspirin, nifedipine - Hold home torsemide Diet: renal failure/dialysis diet Tubes/lines: PIV VTE prophylaxis: heparin Code status: Full Code Disposition: Home with expected discharge date 2-3 days from today's date Plan discussed with [facility] Medicine 3 ([facility]) Produce Team Member, Rio Younger M.B.B.S. Please page the [facility] Medicine 3 ([facility]) service pager at [phone] with any questions. -- Suzette Henson M.D. PGY-1P - Internal Medicine ER documented in this encounter Consult Notes Swapna Steele M.B., B.Ch. - 05/25/2021 1:34 PM CSTAssociated Order(s): IP CONSULT TO NEPHROLOGY NEPHROLOGY CONSULT SERVICE - CONSULT NOTE Hospital Day 1 Nephrology consult (hospital) Referring Provider: Suzette Henson M.D. 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 Singh is a 65 y.o. male with a history of CKD 4 on the transplant list, Left CAL a/p stent (2016) autoimmune hepatitis status post liver transplant x2 in 1998 and 2012 on chronic immunosuppression, HTN, anemia 2/2 chronic disease and CKD, hypothyroidism, recurrent cdiff. He was sent to the ED by his ultrasound spec due to acute on chronic anemia with a hb drop from 7.5 to 6.7. Tested positive again for CDiff. He also has worsening of his renal failure with a CR 2.9 [facility]. Here, creatinine 4.25 on admission. 4.72 this morning. Over the last year his creatinine has been between 3.5 and 4.0. BMP this morning: Cr. 4.72, BC 20, BUN 58 (baseline). Mg 2.5, Phos 4.9, Calcium 7.8 With regards to his anemia- Hb this am was 6.5 for which he received one unit of PRBCs. Since August,he has been between 7.7 to 9.8. Positive FOBT 05/01/21 at OSH. Negative hemoQuant ion 05/01/21. Reticulocytes 2.95 - reticulocyte index 0.71- indicating hypo proliferation. He has been getting SQ Aranespin the outpatient setting, recently increase to 100mcg. Due for next dose 05/31. Had an iron infusionin November, but no iron supplementation since then. Iron studies in April show is iron stores are sub optimal. UA last done on 05/23 showed protein 100, small hb. No nitrite of LE. Blood pressures have been acceptable this admission, systolic 110-130 systolic. Last kidney biopsy 08/2017 due to proteinuria and hematuria with dysmorphic RBC showing focal segmental sclerosis with some collapsing features. The finding of collapsing feature was thought to be due to calcineurin inhibitor. He also has significant arteriosclerosis and arteriolar hyalinosis, [id number]. Interstitial fibrosis with tubular atrophy affects approximately 30-40% of the sample cortex.?? Home Rx: BP: Torsemide 30 QD, Nifedipine 90mg QD, doxazosin 4mg Aranesp 100mcg q21 days Liver tx: cellcept 500mg BID, pred 5mg daily, tacrolimus [address] non-contrast 11/27/20 ?? Mildly atrophic grindstone kidneys. ?? Mild to moderate calcific atherosclerotic disease distal abdominal aorta and both proximal commoniliac arteries. The external iliac arteries have minimal if any calcification present. Advanced calcific atherosclerosis of both internal iliac arteries. ?? Presumed simple cysts within the kidneys REVIEW OF SYSTEMS Pertinent items are noted in HPI; all other review of systems was negative. OBJECTIVE Admission weight: 72.6 kg Weights for the past 120 hrs (Last 3 readings): Weight 05/24/21 1700 72.6 kg I/O last 3 completed shifts: In: 1100 [P.O.:1100] Out: 825 [Urine:825] VITAL SIGNS Temperature: [36.3 ??C-36.9 ??C] 36.8 ??C Heart Rate: [82] 82 Resp Rate: [14-20] 14 Blood Pressure: (113-144)/(56-87) 123/70 SpO2: [95 %-100 %] 96 % Pulse Rate: [62-83] 70 PHYSICAL EXAMINATION General appearance: alert and interactive Lungs: crackles bibasilar cough Heart: normal S1, S2; no murmur, gallop or rub Abdomen: benign, soft Extremities: no edema DIAGNOSTICS Recent Labs 05/25/21 1235 05/25/21 0505 05/24/21 1039 HGB 7.8 L 6.5 L 7.2 L WBC 3.6 3.0 L 3.4 L PLT 188 156 214 Recent Labs 05/25/21 0505 05/24/21 1040 05/24/21 1039 05/23/21 1137 05/23/21 0834 05/01/21 1024 04/26/21 1001 NA 129 L 128 L 129 L 129 L 125 L 128 L 133 L 134 L KSERUM 4.1 -- 4.3 -- -- -- 4.3 KPLASMA -- -- -- 3.9 4.1 3.9 -- BICARB 20 L -- -- 24 21 L 21 L 22 -- BUN 58 H -- 56 H 59 H 55 H 66 H 58 H CREATININE 4.72 H -- 4.44 H 4.31 H 4.25 H 3.93 H 4.22 H Results from last 7 days Lab Units 05/25/21 0505 05/24/21 1039 05/23/21 1137 05/23/21 0834 EXT CALCIUM mg/dL -- 8.3* -- -- CALCIUM P mg/dL -- -- 8.4* 8.3* CALCIUM mg/dL 7.8* -- -- -- ALBUMIN P g/dL -- -- -- 3.6 ALBUMIN g/dL -- -- 3.6 -- PHOSPHORUS INORGANIC P mg/dL -- -- -- 3.8 PHOSPHORUS INORGANIC mg/dL 4.9* -- -- -- Recent Labs 05/01/21 1024 03/12/21 0752 EGFRCYSTATNC 7 L 9 L Results from last 7 days Lab Units 05/23/21 0834 CLARITY U Clear COLOR U Yellow PH URINE 6.5 GLUCOSE U mg/dL Negative RED BLOOD CELL U Small* RBC UA VIDHI /hpf Occ-2 WBC UA /hpf Occ-3 NITRITE U Negative LEUKOCYTES U Negative BILIRUBIN U Negative UROBILINOGEN U MG/DL mg/dL 0.2 SPEC GRAV 1.015 ASSESSMENT / PLAN # Chronic kidney Disease (CKD) stage 4-5, secondary to Hypertension and left renal artery stenosis status post stenting # Hypertension # CKD Anemia # Secondary hyperparathyroidism Mr. Bruce Singh is a 65 year old male with CKD 4-5 2/2 HTN on the transplant list, Left CAL a/p stent (2016). He is admitted with an acute on chronic anemia concerning for gastrointestinal bleed, recurrent C diff colitis, and worsening kidney function. His elevated creatinine today is likely pre renal in the setting of diarrhea and GI blood loss. His creatinine was 4.9 yesterday at the outside hospital and was 4.75 today, so it relatively stable. Fornow, we recommend supplementing his oral intake with isotonic sodium bicarb in the setting of his diarrhea. He has been using Aranesp in the outpatient setting and is due for his next dose on the , but we would prefer to give it to him now in the setting of his blood loss. He had previously been on iron infusions but has not had any since November and is not taking any iron supplements. Will therefore recommend Feraheme once today, once tomorrow, and one more time prior to discharge. We will work with his outpatient transplant nephrologists to ensure that he has close follow-up when he is dismissed from this day. Recommendations: 1. Repeat UA 2. Administer 100 mcg subcutaneous Aranesp once. 3. 510mg of Feraheme today, repeat tomorrow. One more infusion prior to discharge. 4. Recommend isotonic sodium bicarb for volume resuscitation in the setting of his acidosis. 500 mg of D5 with 75 mEq sodium bicarb, infused at 100 cc/hour. 5. Patient okay to undergo colonoscopy from Nephrology perspective. GoLYTELY is a safe prep option. 6. Hold torsemide. 7. We will coordinate with patient's outpatient nephrology team to facilitate follow-up. 8. Please initiate renal diet. Standard Nephrology Recommendations: 1. Please obtain daily weights. 2. Document strict intake and output. 3. Avoid hypotension, with goal to maintain MAP >65 mmHg for adequate renal perfusion. 4. Avoid all nephrotoxins, if possible (contrast dye, unnecessary antibiotics, NSAIDs). 5. Renally dose-adjust all medications for GFR. 6. If patient is receiving dialysis, please order a renal dialysis diet. 7. If patient has chronic kidney disease, please order a renal CKD diet. This case was discussed with Nephrology residential sales consultant Dr. May. Please refer to their note for any additional details. Please contact the Nephrology B service pager at [phone] with any questions or concerns. If this note is pending, recommendations remain preliminary and subject to change until note has been signed. Simba Rene, B.Ch. ER Associated attestation - Steve May M.D. - 05/25/2021 5:43 PM BILLER I saw and evaluated the patient, participating in the garcai portions of the service. I reviewed the resident/fellow???s note. I agree with the resident/fellow???s findings and plan. Briefly, 65-year-old male with history of chronic kidney disease stage 4 with baseline serum creatinine of 3.5-4 mg/dL secondary to calcineurin inhibitor toxicity and hypertension, history of left renal artery stenosis status post renal artery stent in 2017, history of autoimmune hepatitis status postliver transplantation maintained on Prograf, anemia and recurrent C diff for presented with acute onchronic anemia and diarrhea. He was found to be C diff positive. There is potential planned for colonoscopy given concern for GI bleed. Most recently he was iron deficient in April 2021. His last IViron for heme was in November 2020. His Aranesp dose has been uptitrated and most recently received 100 m cg subcutaneous his next dose is due on 05/31/2021 crit. On presentation his serum creatinine was 4.9 mg/dL that improved yesterday evening to 4.25 mg/dL then worsened to 4.72 mg/dL today. He has mild metabolic acidosis. 1. Acute kidney injury, mild, likely due to prerenal azotemia in setting of diarrhea 2. CKD stage 4 3. Mild metabolic acidosis Will plan to give 0.5 L of isotonic bicarbonate using D5W 500 cc with 75 mEq of sodium bicarbonate at a rate of 100 cc an hour. Please repeat urinalysis. 4. Anemia He is iron deficient. He received 1 unit of PRBC. Plan for possible colonoscopy. Would give [id number] mg IV once during this admission. Would give also Aranesp 100 mcg subcutaneous today. Will follow. Radha Hendricks R.N. - 05/25/2021 12:50 PM CSTAssociated Order(s): IP CONSULT TO CARE MANAGEMENT Discharge Planning Assessment SUBJECTIVE Referral Data Referral Source: Early Screen for Discharge Planning Referral Name: [facility] 12 Referral Reason: Discharge Planning Discharge Planning: Early screen discharge Who was present during the interview?: Patient Electronic Installer Services Used: No Patient Information Primary Caregiver: Self Diet/Texture: By mouth Legal Information Legal Decision Maker: Self Advance Directives: N/A (Gave patient information for new advance directive as his current POAs listed are ) Advance Directives Status: Information given Caregiver Information Caregiver Name: Parris Chung Caregiver Relationship: Sister Caregiver Services Requested None OBJECTIVE Functional Status (ADLs) Functional Status: Independent Assistive Devices: Walker Dressing: Independent Feeding: Independent Bathing: Independent Grooming: Independent Toileting: Independent Transfer to/from Bed, Chair Etc.: Independent Mobility: Independent Meal Prep: Independent Medication Setup/Administration: Independent Telephone Use: Independent Housekeeping: Independent Shopping: Independent Managing Finances: Independent Behavior: Oriented Communication: Can write,Talks,Understands speaking,Understands Azerbaijani,Reads Environmental Supports Home Environment: House Anticipated Modifications to the Patient's Home: None Anticipated Needs/Assistive Devices ADL Anticipated Needs: None Transportation Needs: Independent to drive,Support from family Finance/Insurance Primary insurance: MEDICARE A AND B Secondary insurance: [place] Does the Patient have any Financial Concerns?: No Income Source: Social security Income/Expense Information: Income meets expenses Discharge Planning Barriers To Discharge: Comorbidities Strengths: Premorbid level of function,Support of immediate family,Home design,Attitude of self Type of Residence: Private residence Support Systems: Family members Assistance Recommended after Discharge: None Home Care Services: No Anticipated Discharge Destination: Home or Self Care Recommended Discharge Services: Primary Care Physician Follow-up Does the patient need discharge transport arranged?: No ASSESSMENT / PLAN Assessment: The spout liner met with Bruce Singh to discuss his current hospitalization and home going needs. The patient was unaccompanied. The patient was a reliable historian. The role of spout liner was reviewed. The patient reviewed his prior level of care and support system. The patient receives support from his sister. The patient described his living environment as a single level home with level entry. Housekeeping, grocery shopping, meal prep, and other household responsibilities have previously been completed by patient. spout liner discussed the patient's potential needs at dismissal based on their home setti ng, previous needs and responsibilities, homebound status, and relevant assessments with the patient. The patient will be safe and supported to return home alone when medically ready. Support will be provided by Parris jacome. The patient demonstrated understanding when discussing his home going plans and anticipated needs. Patient lives alone in a single [place] in [place], [place]. Patient reports being independentin all ADLs prior to this hospitalization. Patient denies having any formal services at this time. Patient shared his sister, Parris, is his greatest source of support. Parris will provide transport home for patient at discharge. At this time, the care team has not identified any skilled post-hospital discharge care needs that require the assistance of the Care Management Team. After reviewing the patient's chart and meeting with the patient, the spout liner deemed the LACE+/readmission questions were not necessary. The patient reports understanding that he will dismiss from the hospital when medically stable. Pending hospital course and medical readiness, no barriers to dismissal have been identified at this time. Plan: The patient agrees with the following plan. 1. Patient's anticipated discharge disposition is: Home to Self Care 2. Transportation upon dismissal will be provided by family--Parris jacome. 3. spout liner recommended reaching out to family, friends, and neighbors for assistance. 4. spout liner provided information regarding the dismissal process and the Senior Linkage Line ([place] [employer] on Aging) handout. 5. spout liner placed or requested the following hospital-based consult orders and/or referrals:None. 6. spout liner will continue to assess for homegoing needs with the interdisciplinary team. 7. spout liner encouraged the patient to reach out with any questions/concerns. Care Management will continue to follow. Signed by: Radha Hendricks R.N. 05/25/2021 ER Flaquita Luevano - 05/25/2021 9:00 AM CSTAssociated Order(s): IP CONSULT TO SAMPLER TESTER SUPERVISOR KEYMODULE ASSEMBLY Encounter: Spiritual care consult Situation: Mr. Singh spoke about his situation and the sense of loss as his physical condition hasimpacted the things he is able to do and enjoy in life. Family: No family present. Dana Tradition: Mr. Singh is Taoism and affiliated with [facility] in [facility]. Plan: Will remain available for spiritual care as needed or requested. [facility]pl[facility] [phone] ([place]). ER documented in this encounter Nursing Notes Eve Aggarwal R.N. - 05/26/2021 2:39 PM CST Shift Goals: Clinical Goals for the Shift: Patient will be vitally stable throughout shift Identify possible barriers to meeting goals/advancing plan of care: None End of Shift Summary: Vitals stable. No complaints of pain. Pt discharged home self care via family.Education given and all questions answered. AVS and all of belongings sent with patient. Deirdre Nelson R.N. - 05/24/2021 6:18 PM CST Problem: SKIN/TISSUE INTEGRITY Goal: Skin/Tissue integrity maintained or improved Outcome: Progressing Note: Bruising on arms, legs, elbows, abdomen are documented in simple assessment and are in the process of healing Shift Goals: Clinical Goals for the Shift: Manage diarrhea by 1900 Identify possible barriers to meeting goals/advancing plan of care: Patient hemoglobin low, creat high End of Shift Summary: Patient hemoglobin low, creat high, SBA in room, educated on dizziness with low hemoglobin, patient has bruises over arms, legs, abdomen, and elbows, abdominal scar from previous surgery, cardiac intact, resp. Intact, musculoskeletal intact, vitally stable. Regular diet. ER documented in this encounter Miscellaneous Notes Documentation Clarification - Suzette Henson M.D. - 05/26/2021 3:18 PM CST PROVIDER RESPONSE TEXT: To clarify, the appropriate diagnosis supported by the clinical indicators: Moderate malnutrition, I agree with the dietary assessment and treatment which includes interventions: Increase nutrient intake with small, frequent meals and/or snacks, Medical food supplement, Vitamin and mineral supplements, Provide counseling strategies to apply nutritionknowledge, Provide education to increase nutrition knowledge. <LCI> QUERY TEXT: DOCUMENTATION CLARIFICATION REQUEST Please clarify/specify the appropriate diagnosis supported in the clinical indicators below. [[Moderate malnutrition, I agree with the dietary assessment and treatment which includes interventions: Increase nutrient intake with small, frequent meals and/or snacks, Medical food supplement, Vitamin and mineral supplements, Provide counseling strategies to apply nutrition knowledge, Provide education to increase nutrition knowledge.]] Other (explain) Clinically unable to determine (explain) Clinical Indicators/Risk Factors/Treatment: H&P by Suzette Henson M.D. at 05/24/2021 Admitted with worsening stage 4 CKD, history of liver transplant x2, recurrent c diff infection, severe anemia Provider documentation: H&P by Suzette Henson M.D. at 05/24/2021..BMI 23.97, General: Thin male Progress Notes by Rachelle Maldonado at 05/25/2021 Nutrition Diagnosis: Inadequate protein-energy intakerelated to dysgeusia as evidenced by mild fat loss, moderate muscle loss, eating ~75% of baseline intake over the last 12 months and weight loss of 11.9% in the last 12 months. Malnutrition in the Context of: Chronic Illness. Interventions: Increase nutrient intake with small, frequent meals and/or snacks, Medical food supplement, Vitamin and mineral supplements, Provide counseling strategies to apply nutrition knowledge, Provide education to increase nutrition knowledge. Please contact me if you have questions. Thank you, Micah Delgadillo, Zuleika Reece, [facility] Clinical Documentation Mortgage Or Loan Underwriter Query created by: Micah Delgadillo, Chevy, Zuleika, [facility] 05/26/2021 01:38 PM </LCI> ER Hospital Course - Suzette Henson M.D. - 05/25/2021 2:39 PM CST Introduction Mr. Bruce Singh is a 65 y.o. male with a comorbid history significant for autoimmune hepatitis status post liver transplant x2 in 1998 and 2012 on chronic immunosuppression, left renal artery stenosis status post stent placement, worsening stage 4 CKD on transplant list, bipolar disorder, chronic sinusitis with postnasal drip, hypertension, hyperlipidemia, hypothyroidism, recurrent c diff infection, aspiration pneumonia in the past, COVID-19 infection in October 2020, admitted on 05/24/2021 to [facility] Medicine 3 ([facility]) service for anemia evaluation and management. Prior to Admission He describes a longstanding history of anemia in the setting of chronic renal disease, worsening over the last year, refractory to treatment with Aranesp. He had occasional small amount of bright red blood per rectum over the years, intermittent, with no significant increase recently and 2 previous hemoccult negative tests in 2018 and 2019. He went to his annual visit with primary care in April, where a repeat hemoccult was found to be positive and a colonoscopy was ordered. ED Course On 05/23 he presented to the emergency department sent by his nephrology provider with a new hemoglobin drop from 7.5 to 6.7, with a exertional dyspnea and a productive cough over the past year, and a history of bronchiectasis with recurrent pneumonias. He has also diarrhea that resembles peanut butter for the last couple weeks, around to bowel movement today, he denies current blood per rectum or black stools, denies abdominal pain. He describes difficulty getting around the house and has to stop to take multiple breaks to catch his breath. He denies current fever or confusion, no changes on urinary output. Primary evaluation at the emergency department revealed increased creatinine and 4.9, sodium 128, mixed metabolic and respiratory alkalosis, nonchanging elevated troponin. With concerns of worsening renal failure in the setting of anemia, [facility] for direct admission. Hospital Course At arrival to the floor, he remained hemodynamically stable however with ongoing diarrhea. Blood work did show a hemoglobin of 6.5 and he was transfused 1 unit of blood with great clinical and laboratory response. Nephrology was consulted, recommending iron supplementation and anticipation of his Aranesp dose. On 05/26, his hemoglobin was stable, with no clinical signs of large bleed and no indication for urgent colonoscopy. His c difficile test came back positive and he was initiated on vancomycin QID with an expected duration of 10 days. We will plan for colonoscopy as outpatient when the vancomycin treatment is complete. He will be followed up shortly after discharge as outpatient. Disposition The patient was discharged to home on 05/26/21 in improved condition. They should follow up with nephrology on 05/30 regarding further treatment. ER documented in this encounter Plan of Treatment Upcoming Encounters Date Type Specialty Care Team Description 04/24/2022 Appointment Laboratory Medicine Angélica Granger P.A.-C. [address] [place] [phone] 04/25/2022 Office Visit Otorhinolaryngology Dex Matta APRN, C.N.P., M.S.N. [address] [place] [phone] 05/08/2022 Appointment Laboratory Medicine Angélica Granger P.A.-C. [address] [place] [phone] 05/08/2022 Clinical Admitting/Central Communication Scheduling 05/10/2022 Appointment Radiology Jeremie Rose M.D. [address] [place] [phone] 05/10/2022 Comprehensive Visit Orthopedic Surgery Warner Graves M.D. [address] [place] [phone] 05/22/2022 Appointment Laboratory Medicine Angélica Granger P.A.-C. [address] [place] [phone] 06/05/2022 Appointment Laboratory Medicine Angélica Granger P.A.-C. [address] [place] [phone] 06/19/2022 Appointment Laboratory Medicine Angélica Granger P.A.-C. [address] [place] [phone] 07/03/2022 Appointment Laboratory Medicine Angélica Granger P.A.-C. [address] [place] [phone] 07/17/2022 Appointment Laboratory Medicine Angélica Granger P.A.-C. [address] [place] [phone] 07/31/2022 Appointment Laboratory Medicine Angélica Granger P.A.-C. [address] [place] [phone] 08/14/2022 Appointment Laboratory Medicine Angélica Granger P.A.-C. [address] [place] [phone] 08/28/2022 Appointment Laboratory Medicine Emiliejeri Angélica Edmundo Stern [address] [place] [phone] Pending Results Name Type Priority Associated Diagnoses Date/Ti me Prepare Red Blood Blood Bank Routine 05/23/2021 11:37 AM BILLER Cells, 1 Units documented as of this encounter Procedures Procedure Name Priority Date/Time Associated Comments Diagnosis HEMOGLOBIN, B Routine 05/26/2021 11:09 Results fo r this AM BILLER procedure are i n the results section. RENAL FUNCTION PANEL, Routine 05/26/2021 6:06 AM Results for this S BILLER procedure are i n the results section. SOLUBLE TRANSFERRIN Routine 05/26/2021 6:06 AM Re sults for this RECEPTOR (STFR), S BILLER procedure are in the results section. CBC WITH DIFFERENTIAL, Routine 05/26/2021 6:06 AM Results for this B BILLER procedure are i n the results section. SPSMA RESULT Routine 05/25/2021 12:35 Results for this PM BILLER procedure are i n the results section. RETICULOCYTES, B Routine 05/25/2021 12:35 Results for this PM BILLER procedure are i n the results section. CBC WITH DIFFERENTIAL, Routine 05/25/2021 12:35 R esults for this B PM BILLER procedure are i n the results section. LACTATE DEHYDROGENASE Routine 05/25/2021 12:35 Re sults for this (LD), S PM BILLER procedure are i n the results section. HAPTOGLOBIN, S Routine 05/25/2021 12:35 Results f or this PM BILLER procedure are i n the results section. TRANSFUSE RED BLOOD Routine 05/25/2021 9:45 AM CELLS BILLER TACROLIMUS LEVEL, B Timed 05/25/2021 5:05 AM Re sults for this BILLER procedure are i n the results section. CBC WITH DIFFERENTIAL, Timed 05/25/2021 5:05 AM Results for this B BILLER procedure are i n the results section. PHOSPHORUS Timed 05/25/2021 5:05 AM Results f or this (INORGANIC), S BILLER procedure are in the results section. MAGNESIUM, S Timed 05/25/2021 5:05 AM Results f or this BILLER procedure are i n the results section. BASIC METABOLIC PANEL, Timed 05/25/2021 5:05 AM Results for this S/P BILLER procedure are i n the results section. GI PATHOGEN PANEL, Routine 05/24/2021 8:22 PM Res ults for this PCR, F BILLER procedure are i n the results section. ECG Routine 05/24/2021 5:43 PM Results f or this BILLER procedure are i n the results section. PREPARE RED BLOOD Routine 05/23/2021 11:37 CELLS AM BILLER documented in this encounter Results (ABNORMAL) Hemoglobin (05/26/2021 11:09 AM BILLER) P athologist Signature Hemoglobin 7.8 (L) 13.2 - 16.6 05/26/2021 DTL g/dL 11:39 AM BILLER Specimen Anatomical Collection Method Collection Time Receive d Time (Source) Location / / Volume Laterality Blood (Blood, 05/26/2021 11:09 05/26/2021 Venous) AM BILLER 11:32 AM BILLER Suzette Henson M.D. LAB BLOOD ADD-ON Performing Organization Address City/State/[facility] Code Phon e Number [facility] - [address] [place], [place] [address] [facility] [place] [address] Laboratories-[facility] [address] (ABNORMAL) Renal Function Panel (05/26/2021 6:06 AM BILLER) Analysis Performed At Patho logist Time Signature Potassium, S 4.1 3.6 - 5.2 05/26/2021 DTL mmol/L 8:07 AM BILLER Sodium, S 128 (L) 135 - 145 05/26/2021 DTL mmol/L 8:07 AM BILLER Chloride, S 94 (L) 98 - 107 05/26/2021 DTL mmol/L 8:07 AM BILLER Bicarbonate, S 21 (L) 22 - 29 05/26/2021 DTL mmol/L 8:07 AM BILLER Anion Gap 13 7 - 15 05/26/2021 DTL 8:07 AM BILLER BUN (Blood Urea 55 (H) 8 - 24 05/26/2021 DTL Nitrogen), S mg/dL 8:07 AM BILLER Creatinine 4.59 (H) 0.74 - 05/26/2021 DTL 1.35 mg/dL 8:07 AM BILLER eGFR-Non <15 (L) >=60 05/26/2021 DTL Black/ mL/min/BSA 8:07 AM BILLER Salvadorean Comment: ----ADDITIONAL INFORMATION---- Estimated GFR calculated using the 2009 CKD_EPI creatinine equation. eGFR-Black/ <15 (L) >=60 mL/min/BSA 2020 8:07 AM BILLER DTL Comment: ----ADDITIONAL INFORMATION---- Estimated GFR calculated using the 2009 CKD_EPI creatinine equation. Calcium, Total, S 7.4 (L) 8.8 - 10.2 mg/dL 05/26/2021 8:07 AM BILLER DTL Glucose, S 100 70 - 140 mg/dL 05/26/2021 8:07 AM BILLER D TL Albumin, S 3.2 (L) 3.5 - 5.0 g/dL 05/26/2021 8:07 AM BILLER D TL Phosphorus (Inorganic), S 4.4 2.5 - 4.5 mg/dL 05/26/20 8:07 AM BILLER DTL Specimen Anatomical Collection Method Collection Time Receive d Time (Source) Location / / Volume Laterality Blood (Blood, 05/26/2021 6:06 AM 05/26/20 7:23 Venous) BILLER AM BILLER Suzette Henson M.D. LAB BLOOD ADD-ON Performing Organization Address City/State/ZIP Code Phon e Number [facility] - [address] [place] [phone] [facility] [place] [address] [facility] [address] [facility] (ABNORMAL) CBC with Differential, Blood (05/26/2021 6:06 AM BILLER) [facility] gist Method Time Signature Hemoglobin 7.2 (L) 13.2 - 05/26/2021 DTL 16.6 g/dL 7:22 AM BILLER Hematocrit 21.3 (L) 38.3 - 05/26/2021 DTL 48.6 % 7:22 AM BILLER Erythrocytes 2.28 (L) 4.35 - 05/26/2021 DTL 5.65 7:22 AM BILLER x10(12)/L MCV 93.4 78.2 - 05/26/2021 DTL 97.9 fL 7:22 AM BILLER RBC Distrib Width 13.9 11.8 - 05/26/2021 DTL 14.5 % 7:22 AM BILLER Platelet Count 182 135 - 317 05/26/2021 DTL x10(9)/L 7:22 AM BILLER Leukocytes 3.9 3.4 - 9.6 05/26/2021 DTL x10(9)/L 7:22 AM BILLER Neutrophils 2.92 1.56 - 05/26/2021 DTL 6.45 7:22 AM BILLER x10(9)/L Lymphocytes 0.46 (L) 0.95 - 05/26/2021 DTL 3.07 7:22 AM BILLER x10(9)/L Monocytes 0.46 0.26 - 05/26/2021 DTL 0.81 7:22 AM BILLER x10(9)/L Eosinophils 0.07 0.03 - 05/26/2021 DTL 0.48 7:22 AM BILLER x10(9)/L Basophils <0.03 0.01 - 05/26/2021 DTL 0.08 7:22 AM BILLER x10(9)/L Specimen Anatomical Collection Method Collection Time Receive d Time (Source) Location / / Volume Laterality Blood (Blood, 05/26/2021 6:06 AM 05/26/20 7:12 Venous) BILLER AM BILLER Suzette Henson M.D. LAB BLOOD ADD-ON Performing Organization Address City/State/ZIP Code Phon e Number [facility] - [address] [place], [place] [address] [facility] [place] [address] [facility] [address] Soluble Transferrin Receptor (sTfR) (05/26/2021 6:06 AM BILLER) P athologist Signature Soluble 2.2 1.8 - 4.6 05/26/2021 DTL Transferrin mg/L 11:21 AM BILLER Receptor (sTfR) Comment: ----ADDITIONAL INFORMATION---- It is reported that Americans may have slightly higher values. Specimen Anatomical Collection Method Collection Time Receive d Time (Source) Location / / Volume Laterality Blood (Blood, 05/26/2021 6:06 AM 05/26/20 21 7:23 Venous) BILLER AM BILLER Authorizing Provider Result Dotty Henson M.D. LAB BLOOD ADD-ON Performing Organization Address [facility] Phon e Number [facility] - [address] Transfuse Red Blood Cells : (05/25/2021 1:57 PM BILLER) Suzette Henson M.D. BLOOD TRANSFUSION ORDERABLES Transfuse Red Blood Cells : , 1 Units (05/25/2021 1:57 PM BILLER) Suzette Henson M.D. BLOOD TRANSFUSION ORDERABLES (ABNORMAL) Reticulocytes (05/25/2021 12:35 PM BILLER) Patholo gist Method Time Signature Reticulocytes, B 2.95 (H) 0.60 - 05/25/2021 DTL 2.71 % 1:06 PM BILLER Absolute 73.8 30.4 - 05/25/2021 DTL Reticulocyte 110.9 1:06 PM BILLER x10(9)/L Specimen Anatomical Collection Method Collection Time Receive d Time (Source) Location / / Volume Laterality Blood (Blood, 05/25/2021 12:35 05/25/2021 Venous) PM BILLER 12:58 PM BILLER Authorizing Provider Result Dotty Henson M.D. LAB BLOOD ADD-ON Performing Organization Address City/[facility] Phon e Number [facility] - [id number] [place] [address] (ABNORMAL) Morphology Evaluation (Special Smear) (05/25/2021 12:35 PM BILLER) Analysis Performed At Patho logist Time Signature Neutrophilic Segs 79 (H) 50 - 75 % 05/25/2021 [facility] and Bands 2:14 PM BILLER Lymphocytes 8 (L) 18 - 42 % 05/25/2021 DHPM 2:14 PM BILLER Monocytes 10 2 - 11 % 05/25/2021 [facility] 2:14 PM BILLER Eosinophils 2 1 - 3 % 05/25/2021 [facility] 2:14 PM BILLER Myelocytes 1 (H) <0.5 % 05/25/2021 [facility] 2:14 PM BILLER Manual Absolute 2.84 1.56 - 05/25/2021 [facility] Neutrophil Count 6.45 2:14 PM BILLER x10(9)/L Comment: ----ADDITIONAL INFORMATION---- The manual absolute neutrophil count is derived from a manual differential count and therefore is not exactly comparable to the automated absolute rui trophil count. Interpretation SeeComment 05/25/2021 2:14 PM BILLER D HPM Comment: No morphologic features of hemo lysis are seen. Reviewed by: Tech 05/25/2021 2:14 PM BILLER [facility] Specimen Anatomical Collection Method Collection Time Receive d Time (Source) Location / / Volume Laterality Blood (Blood, 05/25/2021 12:35 05/25/2021 Venous) PM BILLER 12:58 PM BILLER Suzette Henson M.D. LAB BLOOD ADD-ON Performing Organization Address City/[facility]/ZIP Code Phon e Number [facility] - [address] (ABNORMAL) LD (Lactate Dehydrogenase) (05/25/2021 12:35 PM BILLER) [facility] Trudy 283 (H) 122 - 222 05/25/2021 DT LD U/L 1:50 PM BILLER Specimen Anatomical Collection Method Collection Time Receive d Time (Source) Location / / Volume Laterality Blood (Blood, 05/25/2021 12:35 05/25/2021 1:34 Venous) PM BILLER PM BILLER Suzette Henson M.D. LAB BLOOD NON ADD -ON Performing Organization Address City/[facility]/ZIP [facility] Phon e Number [facility] - [address] Haptoglobin (05/25/2021 12:35 PM BILLER) [facility] Haptoglobin, S 78 30 - 200 05/25/2021 [facility] mg/dL 4:51 PM BILLER Specimen Anatomical Collection Method Collection Time Receive d Time (Source) Location / / Volume Laterality Blood (Blood, 05/25/2021 12:35 05/25/2021 4:20 Venous) PM BILLER PM BILLER Suzette Henson M.D. LAB BLOOD ADD-ON Performing Organization Address City/State/ZIP Code Phon e Number [facility] [address] [place], [place] [address] [facility] [place] [address] Laboratory Medicine and Pathology [address] [place] (ABNORMAL) CBC with Differential, Blood (05/25/2021 12:35 PM BILLER) [facility] gist Method Time Signature Hemoglobin 7.8 (L) 13.2 - 05/25/2021 DTL 16.6 g/dL 1:06 PM BILLER Hematocrit 23.7 (L) 38.3 - 05/25/2021 DTL 48.6 % 1:06 PM BILLER Erythrocytes 2.50 (L) 4.35 - 05/25/2021 DTL 5.65 1:06 PM BILLER x10(12)/L MCV 94.8 78.2 - 05/25/2021 DTL 97.9 fL 1:06 PM BILLER RBC Distrib Width 13.8 11.8 - 05/25/2021 DTL 14.5 % 1:06 PM BILLER Platelet Count 188 135 - 317 05/25/2021 DTL x10(9)/L 1:06 PM BILLER Leukocytes 3.6 3.4 - 9.6 05/25/2021 DTL x10(9)/L 1:06 PM BILLER Neutrophils 2.78 1.56 - 05/25/2021 DTL 6.45 1:06 PM BILLER x10(9)/L Lymphocytes 0.32 (L) 0.95 - 05/25/2021 DTL 3.07 1:06 PM BILLER x10(9)/L Monocytes 0.42 0.26 - 05/25/2021 DTL 0.81 1:06 PM BILLER x10(9)/L Eosinophils 0.07 0.03 - 05/25/2021 DTL 0.48 1:06 PM BILLER x10(9)/L Basophils <0.03 0.01 - 05/25/2021 DTL 0.08 1:06 PM BILLER x10(9)/L Specimen Anatomical Collection Method Collection Time Receive d Time (Source) Location / / Volume Laterality Blood (Blood, 05/25/2021 12:35 05/25/2021 Venous) PM BILLER 12:58 PM BILLER Suzette Henson M.D. LAB BLOOD ADD-ON Performing Organization Address City/[facility] Phon e Number [facility] - [address] [place], [place] [address] [facility] [place] [address] Laboratories-[facility] [address] (ABNORMAL) Tacrolimus, B (05/25/2021 5:05 AM BILLER) athologist Signature Tacrolimus, B 2.1 (L) 5.0-15.0 05/25/2021 [facility] (Trough) 12:36 PM BILLER ng/mL Comment: ----ADDITIONAL INFORMATION---- Target steady-state trough concentration s vary depending on the type of transplant, concomitant immunosuppressio n, clinical/institutional protocols, and time post-transplant. Results should be interpreted in conjunction with this clinical information and any physic al signs/symptoms of rejection/toxicity. Testing performed by Liquid Chromatograp hy-Tandem Mass Spectrometry (LC-MS/MS). This test was developed and its performa nce characteristics determined by [facility] in a manner consistent with CLIA requirements. This test has not been cleared or approved by the U.S. Mer d and Drug Administration. Specimen Anatomical Collection Method Collection Time Receive d Time (Source) Location / / Volume Laterality Blood (Blood, 05/25/2021 5:05 AM 05/25/20 21 8:23 Venous) BILLER AM BILLER Suzette Henson M.D. LAB BLOOD NON ADD -ON Performing Organization Address City/State/ZIP Code Phon e Number [facility] [address] [place], [place] [address] [facility] [place] [address] Laboratory Medicine and Pathology [address] [place] (ABNORMAL) Magnesium (05/25/2021 5:05 AM BILLER) athologist Signature Magnesium, S 2.5 (H) 1.7 - 2.3 05/25/2021 DTL mg/dL 6:16 AM BILLER Specimen Anatomical Collection Method Collection Time Receive d Time (Source) Location / / Volume Laterality Blood (Blood, 05/25/2021 5:05 AM 05/25/20 5:58 Venous) BILLER AM BILLER Suzette Henson M.D. LAB BLOOD ADD-ON Performing Organization Address City/[facility]/ZIP [facility] Phon e Number [facility] - [address] [place], [place] [address] [facility] [place] [address] Laboratories-[address] (ABNORMAL) Phosphorus Inorganic (05/25/2021 5:05 AM BILLER) P athologist Signature Phosphorus 4.9 (H) 2.5 - 4.5 05/25/2021 DTL (Inorganic), S mg/dL 6:16 AM BILLER Specimen Anatomical Collection Method Collection Time Receive d Time (Source) Location / / Volume Laterality Blood (Blood, 05/25/2021 5:05 AM 05/25/20 5:58 Venous) BILLER AM BILLER Suzette Henson M.D. LAB BLOOD ADD-ON Performing Organization Address City/[facility] Phon e Number [facility] - [address] [place], [place] [address] [facility] [place] [address] Laboratories-[address] (ABNORMAL) CBC with Differential, Blood (05/25/2021 5:05 AM BILLER) Patholo gist Method Time Signature Hemoglobin 6.5 (L) 13.2 - 05/25/2021 DTL 16.6 g/dL 5:51 AM BILLER Hematocrit 20.3 (L) 38.3 - 05/25/2021 DTL 48.6 % 5:51 AM BILLER Erythrocytes 2.14 (L) 4.35 - 05/25/2021 DTL 5.65 5:51 AM BILLER x10(12)/L MCV 94.9 78.2 - 05/25/2021 DTL 97.9 fL 5:51 AM BILLER RBC Distrib Width 13.8 11.8 - 05/25/2021 DTL 14.5 % 5:51 AM BILLER Platelet Count 156 135 - 317 05/25/2021 DTL x10(9)/L 5:51 AM BILLER Leukocytes 3.0 (L) 3.4 - 9.6 05/25/2021 DTL x10(9)/L 5:51 AM BILLER Neutrophils 2.15 1.56 - 05/25/2021 DTL 6.45 5:51 AM BILLER x10(9)/L Lymphocytes 0.38 (L) 0.95 - 05/25/2021 DTL 3.07 5:51 AM BILLER x10(9)/L Monocytes 0.41 0.26 - 05/25/2021 DTL 0.81 5:51 AM BILLER x10(9)/L Eosinophils 0.08 0.03 - 05/25/2021 DTL 0.48 5:51 AM BILLER x10(9)/L Basophils <0.03 0.01 - 05/25/2021 DTL 0.08 5:51 AM BILLER x10(9)/L Specimen Anatomical Collection Method Collection Time Receive d Time (Source) Location / / Volume Laterality Blood (Blood, 05/25/2021 5:05 AM 05/25/20 21 5:43 Venous) BILLER AM BILLER Suzette Henson M.D. LAB BLOOD ADD-ON Performing Organization Address City/State/ZIP Code Phon e Number [facility] - [address] [place], [place] [address] [facility] [place] [address] Laboratories-[facility] [address] [facility] (ABNORMAL) Basic Metabolic Panel (05/25/2021 5:05 AM BILLER) Analysis Performed At Patho logist Time Signature Potassium, S 4.1 3.6 - 5.2 05/25/2021 DTL mmol/L 6:16 AM BILLER Sodium, S 129 (L) 135 - 145 05/25/2021 DTL mmol/L 6:16 AM BILLER Chloride, S 95 (L) 98 - 107 05/25/2021 DTL mmol/L 6:16 AM BILLER Bicarbonate, S 20 (L) 22 - 29 05/25/2021 DTL mmol/L 6:16 AM BILLER Anion Gap 14 7 - 15 05/25/2021 DTL 6:16 AM BILLER BUN (Blood Urea 58 (H) 8 - 24 05/25/2021 DTL Nitrogen), S mg/dL 6:16 AM BILLER Creatinine 4.72 (H) 0.74 - 05/25/2021 DTL 1.35 mg/dL 6:20 AM BILLER eGFR-Non <15 (L) >=60 05/25/2021 DTL Black/ mL/min/BSA 6:20 AM BILLER Salvadorean Comment: ----ADDITIONAL INFORMATION---- Estimated GFR calculated using the 2009 CKD_EPI creatinine equation. eGFR-Black/ <15 (L) >=60 mL/min/BSA 2020 6:20 AM BILLER DTL Comment: ----ADDITIONAL INFORMATION---- Estimated GFR calculated using the 2009 CKD_EPI creatinine equation. Calcium, Total, S 7.8 (L) 8.8 - 10.2 mg/dL 05/25/2021 6:16 AM BILLER DTL Glucose, S 117 70 - 140 mg/dL 05/25/2021 6:16 AM BILLER D TL Specimen Anatomical Collection Method Collection Time Receive d Time (Source) Location / / Volume Laterality Blood (Blood, 05/25/2021 5:05 AM 05/25/20 5:58 Venous) BILLER AM BILLER Suzette Henson M.D. LAB BLOOD ADD-ON Performing Organization Address City/State/ZIP Code Phon e Number [facility] - [address] [place], [place] [address] [facility] [place] [address] Laboratories-[facility] [address] (ABNORMAL) GI Pathogen Panel, PCR, Feces (05/24/2021 8:22 PM BILLER) [facility] Method Time Signature Specimen Source STOOL 05/24/2021 DTL 11:16 PM BILLER Campylobacter Negative Negative 05/24/2021 DTL species 11:16 PM BILLER C. difficile Positive (A) Negative 05/24/2021 DTL toxin 11:16 PM BILLER Comment: A positive C. difficile result may refle ct asymptomatic carriage or C. difficile-associated diar armando. Plesiomonas shigelloides Negative Negative 05/24/2021 11:1 6 PM BILLER DTL Salmonella species Negative Negative 05/24/2021 11:[address] DTL Vibrio species Negative Negative 05/24/2021 11:16 PM BILLER D TL Vibrio cholerae Negative Negative 05/24/2021 11:16 PM BILLER DTL Yersinia species Negative Negative 05/24/2021 11:16 PM BILLER DTL Enteroaggregative E. coli Negative Negative 05/24/2021 11: 16 PM BILLER DTL (EAEC) Enteropathogenic E. coli (EPEC) Positive (A) Negative 11:16 PM BILLER DTL Comment: A positive EPEC result may reflect eithe r asymptomatic carriage or diarrhea caused by EPEC. Enterotoxigenic E. coli (ETEC) Negative Negative 11:16 PM BILLER DTL Shiga toxin producing E. coli Negative Negative 05/24/2021 11:16 PM BILLER DTL Shigella/Enteroinvasive E. coli Negative Negative 05/24/20 11:16 PM BILLER DTL Cryptosporidium species Negative Negative 05/24/2021 11:16 PM BILLER DTL Cyclospora cayetanensis Negative Negative 05/24/2021 11:16 PM BILLER DTL Entamoeba histolytica Negative Negative 05/24/2021 11:16 P M BILLER DTL Giardia Negative Negative 05/24/2021 11:16 PM BILLER DTL Adenovirus F40/41 Negative Negative 05/24/2021 11:16 PM CS T DTL Astrovirus Negative Negative 05/24/2021 11:16 PM BILLER DTL Norovirus GI/GII Negative Negative 05/24/2021 11:16 PM BILLER DTL Rotavirus Ag, F Negative Negative 05/24/2021 11:16 PM BILLER DTL Sapovirus Negative Negative 05/24/2021 11:16 PM BILLER DTL Comment: ----ADDITIONAL INFORMATION---- This assay is performed using the FDA-cl eared FilmArray GI Panel ([employer] Semi-Urgent This is a semi-urgent result [facility] () [facility] [place] Specimen Anatomical Collection Method Collection Time Receive d Time (Source) Location / / Volume Laterality Stool (Stool) 05/24/2021 8:22 PM 05/24/20 8:30 BILLER PM BILLER Suzette Henson M.D. LAB MICROBIOLOGY - GENERAL ORDERABLES Performing Organization Address City/State/ZIP Code Phon e Number [facility] - [address] [place], [place] [address] [facility] [place] [address] Laboratories-[facility] [address] [facility] ECG 12 Lead (05/24/2021 5:43 PM BILLER) P athologist Signature Ventricular Rate 58 BPM MUSE ECG/Min MO Interval 158 ms MUSE QRSD Interval 86 ms MUSE QT Interval 422 ms MUSE QTC Interval 414 ms MUSE P [place] 50 degrees MUSE R [place] 6 degrees MUSE T Wave [place] 51 degrees MUSE Specimen Anatomical Collection Method Collection Time Receive d Time (Source) Location / / Volume Laterality 05/24/2021 5:43 PM 5:45 BILLER PM BILLER Impressions MUSE - 05/24/2021 5:46 PM BILLER Sinus bradycardia Otherwise normal ECG When compared with ECG of 23-MAY-2021 11 :17, No significant change was found Reviewed by SHERYL Mayfield Narrative This result has an attachment that is no t available. Procedure Note Leonid Dowd M.D. - 05/24/2021Form atting of this note might be different from the original. IMPRESSION: Sinus bradycardia Otherwise normal ECG When compared with ECG of 23-MAY-2021 11 :17, No significant change was found Reviewed by SHERYL Mayfield Suzette Henson M.D. ECG ORDERABLES Performing Organization Address City/State/ZIP Code Phon e Number MUSE MUSE NA documented in this encounter Visit Diagnoses Diagnosis Failure Renal - Primary Failure Renal Cirrhosis Cryptogenic (HCC) Bipolar I Disorder (HCC) Transplant Liver (HCC) Chronic Kidney Disease NOS Immunodeficiency (HCC) Stenosis Renal Artery (HCC) Hypertension And Chronic Kidney Disease Stage 5 (HCC) Chronic Kidney Disease Stage 4 [place] Filtration Rate 15-29 (HCC) Pneumonitis Due To Inhalation Of Food An d Vomit (HCC) Anemia Hyponatremia Rhinosinusitis Chronic Diarrhea documented in this encounter Admitting Diagnoses Diagnosis Failure Renal documented in this encounter Administered Medications Inactive Administered Medications - up to 3 most recent administrations Medication Order MAR Action Action Date Dose Rate Site acetaminophen tablet 500 mg (TYLENOL) 500 mg, oral, Every 6 hours PRN, mild pa in or score 1-3 of 10, headaches, fever, Starting on Shraddha 05/24/21 at 1716 aspirin chewable tablet 81 mg Given 05/26/2021 8:25 AM BILLER 81 mg 81 mg, oral, Daily, First dose on Fri05/25/21 at 0900 Given 05/25/2021 8:36 AM BILLER 81 mg atorvastatin tablet 10 mg (LIPITOR) Given 05/25/2021 9:45 PM BILLER 10 mg 10 mg, oral, Daily at bedtime, First dose on Fri05/24/21 at 2100 Given 05/24/2021 9:15 PM BILLER 10 mg darbepoetin michelle-polysorbate Given 05/25/2021 6:54 PM 100 mcg Right Upper Arm injection 100 mcg (ARANESP) BILLER (Back) 100 mcg, subcutaneous, Once, On Fri05/25/21 at 1830, For 1 dose, Indications: anemia in qov-wwtsskgr-yijqzaved chronic kidney disease doxazosin tablet 4 mg (CARDURA) Given 05/25/2021 9:45 PM BILLER 4 mg 4 mg, oral, Daily at bedtime, First dose on Fri05/24/21 at 2100 Given 05/24/2021 9:15 PM BILLER 4 mg ferumoxytoL 510 mg of iron New Bag 05/25/2021 7:37 PM BILLER 510 mg of iron 468 mL/hr in NaCl 0.9% IVPB (FERAHEME) 510 mg of iron, intravenous, at 468 mL/hr, Administer over 15 Minutes, Once, On Fri05/25/21 at 1900, For 1 dose, Restriction Criteria (Pharmacy will review and approve if criteria met): Treatment failure and/or intolerance to oral iron supplementation, Indications: iron deficiency anemia ferumoxytoL 510 mg of iron New Bag 05/26/2021 2:30 PM BILLER 510 mg of iron 468 mL/hr in NaCl 0.9% IVPB (FERAHEME) 510 mg of iron, intravenous, at 468 mL/hr, Administer over 15 Minutes, Once, On Fri05/26/21 at 1330, For 1 dose, Restriction Criteria (Pharmacy will review and approve if criteria met): Treatment failure and/or intolerance to oral iron supplementation, Indications: iron deficiency anemia heparin (porcine) Given 05/26/2021 6:55 AM BILLER 5,000 Units Right Upper Arm injection 5,000 Units (Back) 5,000 Units, subcutaneous, Every 8 hours scheduled, First dose on Fri05/24/21 at 2200 Given 05/25/2021 9:45 PM BILLER 5,000 Units Left Lower Abdomen Given 05/25/2021 1:10 PM BILLER 5,000 Units Left Upper Arm (Back) lamoTRIgine tablet 200 mg (LaMICtal) Given 05/26/2021 8:24 AM BILLER 200 mg 200 mg, oral, 2 times daily, First dose on Fri05/24/21 at 2100 Given 05/25/2021 10:34 PM BILLER 200 mg Given 05/25/2021 8:36 AM BILLER 200 mg levothyroxine tablet 25 mcg (SYNTHROID, Given 05/26/2021 6:55 AM BILLER 25 mcg LEVOTHROID) 25 mcg, oral, Daily before breakfast, First dose on Fri05/25/21 at 0700 Given 05/25/2021 6:23 AM BILLER 25 mcg loratadine tablet 10 mg (CLARITIN) Given 05/25/2021 9:45 PM BILLER 10 mg 10 mg, oral, Daily at bedtime, First dose on Fri05/24/21 at 2100 Given 05/24/2021 9:15 PM BILLER 10 mg montelukast tablet 10 mg (SINGULAIR) Given 05/25/2021 9:45 PM BILLER 10 mg 10 mg, oral, Daily at bedtime, First dose on Fri05/24/21 at 2100 Given 05/24/2021 9:14 PM BILLER 10 mg multivitamin renal failure 100-1 mg 1 Given 05/25/2021 5:[address] 1 tablet tablet (DIALYVITE) 1 tablet, oral, Daily with dinner, First dose on Fri05/25/21 at 1700, give after dialysis on dialysis days mycophenolate tablet 500 mg (CELLCEPT) Given 05/26/2021 8:24 AM BILLER 500 mg 500 mg, oral, 2 times daily, First dose on Fri05/24/21 at 2100, HAZARDOUS - Handle with care. Swallow whole. Do NOT crush, chew or split tablet., Continuation of paqvi-dp-fvgnqvoil therapy? Yes Given 05/25/2021 9:45 PM BILLER 500 mg Given 05/25/2021 8:35 AM BILLER 500 mg NIFEdipine XL 24 hr tablet 90 mg (PROCARDIA Given 05/25/2021 9:4 4 PM BILLER 90 mg XL) 90 mg, oral, Daily at bedtime, First dose on Fri05/24/21 at 2100, Swallow whole. Do NOT crush, chew, or split tablet. Given 05/24/2021 9:15 PM BILLER 90 mg ondansetron (PF) injection 4 mg (ZOFRAN) 4 mg, intravenous, Every 6 hours PRN, na usea, vomiting, Starting on Fri05/24/21 at 1716 predniSONE tablet 5 mg (DELTASONE) Given 05/26/2021 8:25 AM BILLER 5 mg 5 mg, oral, Daily, First dose on Fri05/25/21 at 0900 Given 05/25/2021 8:36 AM BILLER 5 mg sodium bicarbonate 75 mEq in D5W New Bag 05/25/2021 7:50 PM CS T 100 mL/hr 100 mL/hr 1,075 mL infusion 100 mL/hr, intravenous, Continuous, Starting on Fri05/25/21 at 1900, For 4 hours sodium chloride 0.9 % injection 10 mL 10 mL, intravenous, As needed, line care, Starting on Fri05/24/21 at 1715, Peripheral Intravenous Catheter and Rapid Infusion Cat heter, prior to blood sampling, post blood transfusion or post blood samplin g sodium chloride 0.9 % injection 3 mL 3 mL, intravenous, As needed, line care, Starting on Fri05/24/21 at 1715, Prior to and following infusion and between multi ple consecutive infusions: sodium chloride 0.9 % injection sodium chloride 0.9 % injection 3 mL Given 05/26/2021 8:26 AM BILLER 3 mL 3 mL, intravenous, Every 12 hours scheduled, First dose on Fri05/24/21 at 2100, Peripheral Intravenous Catheter and Rapid Infusion Catheter, when no infusion to maintain patency Given 05/25/2021 10:34 PM BILLER 3 mL Given 05/25/2021 8:39 AM BILLER 3 mL tacrolimus capsule 1 mg (PROGRAF) Given 05/26/2021 8:25 AM BILLER 1 mg 1 mg, oral, 2 times daily, First dose on Fri05/24/21 at 2100 Given 05/25/2021 9:45 PM BILLER 1 mg Given 05/25/2021 8:35 AM BILLER 1 mg vancomycin capsule 125 mg (VANCOCIN) Given 05/26/2021 12:12 PM BILLER 125 mg 125 mg, oral, 4 times daily, First dose on Fri05/25/21 at 1700, For 10 days, Drug Monitoring Program: Pharmacist to adjust medication dosing based on indication and drug clearance factors., Indications: C. difficile infection Given 05/26/2021 8:25 AM BILLER 125 mg Given 05/25/2021 9:45 PM BILLER 125 mg documented in this encounter Active and Recently Administered Medications Times are shown in BILLER. Scheduled Medication Order 05/24/2021 05/25/2021 05/26/2021 aspirin chewable tablet 81 mg 0836 (Given - Prov ider: Alan Lam) 0825 (Given - Provider: Eve Aggarwal R.N.) 81 mg, oral, Daily, First dose on Fri05/25/21 at 0900 atorvastatin tablet 10 mg (LIPITOR) 2114 (Given - Provider: Christina Chester R.N.) 2144 (Given - Provider: Fe Ansari R.N.) 10 mg, oral, Daily at bedtime, First dose on Fri05/24/21 at 2100 darbepoetin michelle-polysorbate injection 100 mcg (ARANESP) (CO MPLETED) 1853 (Given - Provider: Eve Aggarwal R.N.) 100 mcg, subcutaneous, Once, On 05/25 at 1830, For 1 dose, Indications: anemia in hdh-hhwqbmwh-zgmujbhiy chronic kidney disease doxazosin tablet 4 mg (CARDURA) 2114 (Given - Provider: Christina Chester R.N.) 2144 (Given - Provider: Fe Ansari R.N.) 4 mg, oral, Daily at bedtime, First dose on Fri05/24/21 at 2100 ferumoxytoL 510 mg of iron in NaCl 0.9% IVPB (FERAHEME) (COM PLETED) 1936 (New Bag - Provider: Fe Ansari R.N.) 510 mg of iron, intravenous, at 468 mL/h r, Administer over 15 Minutes, Once, On Fri05/25/21 at 1900, For 1 dose, Restriction Criteria (Pharmacy will review and approve if criteria met): Treatment failur e and/or intolerance to oral iron supple mentation, Indications: iron deficiency anemia ferumoxytoL 510 mg of iron in NaCl 0.9% IVPB (FERAHEME) (COMPLET ED) 1430 (New Bag - Provider: Eve Aggarwal R.N.) 510 mg of iron, intravenous, at 468 mL/h r, Administer over 15 Minutes, Once, On 05/26/21 at 1330, For 1 dose, Restriction Criteria (Pharmacy will review and approve if criteria met): Treatment failur e and/or intolerance to oral iron supple mentation, Indications: iron deficiency anemia heparin (porcine) injection 5,000 Units 2114 (Given - Provider: Christina Chester R.N.) 06 (Given - Provider: Christina Chester R.N. )131 (Given - Provider: Eve Aggarwal R.N.)2144 (Given - Provider: Fe Ansari R.N.) 0655 (Given - Provider: Mary Irizarry R.N.)131 (Not Given - Provider: Eve Aggarwal R.N. - Reason: Patient/family refused) 5,000 Units, subcutaneous, Every 8 hours scheduled, First dose on Shraddha 05/24/21 at 2200 lamoTRIgine tablet 200 mg (LaMICtal) 2114 (Given - Provider: Christina Chester R.N.) 0836 (Given - Provider: Alan Lam)2233 (Given - Provider: Fe Ansari R.N.) 0824 (Given - Provider: Eve Aggarwal R.N.) 200 mg, oral, 2 times daily, First dose on Fri05/24/21 at 2100 levothyroxine tablet 25 mcg (SYNTHROID, LEVOTHROID) 622 (Given - Provider: Christina Chester R.N.) 0655 (Given - Provider: Mary Irizarry R.N.) 25 mcg, oral, Daily before breakfast, First dose on Fri05/25/21 at 0700 loratadine tablet 10 mg (CLARITIN) 2114 (Given - Provider: Ana Chester R.N.) 2144 (Given - Provider: Fe Ansari R.N.) 10 mg, oral, Daily at bedtime, First dose on Fri05/24/21 at 2100 montelukast tablet 10 mg (SINGULAIR) 2113 (Given - Provider: Christina Chester R.N.) 2144 (Given - Provider: Fe Ansari R.N.) 10 mg, oral, Daily at bedtime, First dose on Fri05/24/21 at 2100 multivitamin renal failure 100-1 mg 1 tablet (DIALYVITE) 1743 (Given - Provider: Eve Aggarwal R.N.) 1 tablet, oral, Daily with dinner, First dose on Fri05/25/21 at 1700, give after dialysis on dialysis days mycophenolate tablet 500 mg (CELLCEPT) 2114 (Given - P rovider: Christina Chester R.N.) 834 (Given - Provider: Alan Lam)2 145 (Given - Provider: Fe Ansari R.N.) 08 (Given - Provider: Eve Aggarwal R.N.) 500 mg, oral, 2 times daily, First dose on Fri05/24/21 at 2100, HAZARDOUS - Handle with care. Swallow whole. Do NOT crush, chew or split tablet., Continuation of awify-ob-abcfbjoif therapy? Yes NIFEdipine XL 24 hr tablet 90 mg (PROCARDIA XL) 2114 ( Given - Provider: Christina Chester R.N.) 2143 (Given - Provider: Fe Ansari R.N.) 90 mg, oral, Daily at bedtime, First dos e on Fri05/24/21 at 2100, Swallow whole. Do NOT crush, chew, or split tablet. predniSONE tablet 5 mg (DELTASONE) 835 (Given - Provider: Alan Lam) 0825 (Given - Provider: Eve Aggarwal R.N.) 5 mg, oral, Daily, First dose on Fri05/25/21 at 0900 sodium chloride 0.9 % injection 3 mL 2114 (Given - Provider: Christina Chester R.N.) 0839 (Given - Provider: Alan Lam)2233 (Given - Provider: Fe Ansari R.N.) 0826 (Given - Provider: Eve Aggarwal R.N.) 3 mL, intravenous, Every 12 hours schedu led, First dose on Fri05/24/21 at 2100, Peripheral Intravenous Catheter and Rapid Infusion Catheter, when no infusion to maintain patency tacrolimus capsule 1 mg (PROGRAF) 2114 (Given - Provider: Seda Chester R.N.) 0835 (Given - Provider: Alan Lam)2144 (Given - Provider: Fe Ansari R.N.) 0825 (Given - Provider: Eve Aggarwal R.N.) 1 mg, oral, 2 times daily, First dose on Shraddha 05/24/21 at 2100 torsemide tablet 30 mg (DEMADEX) 0614 (H eld by provider - Provider: Suzette Henson M.D. - Comment: hernán)0900 (Not Given - Provider: Eve Aggarwal R.N. - Reason: See Provider Order) 0900 (Not Given - Provider: Eve Aggarwal R.N. - Reason: See Provider Order)1719 (Unheld by provider - Provider: Discharge Provider, Automatic) 30 mg, oral, Daily, First dose on Fri05/25/21 at 0900 vancomycin capsule 125 mg (VANCOCIN) 174 4 (Given - Provider: Eve Aggarwal R.N.)2144 (Given - Provider: Fe Ansari R.N.) 0825 (Given - Provider: Eve Aggarwal R.N.)1212 (Given - Provider: Eve Aggarwal R.N.) 125 mg, oral, 4 times daily, First dose on Fri05/25/21 at 1700, For 10 days, Drug Monitoring Program: Pharmacist to adjust medication dosing based on indication and drug clearance factors., Indications: C. difficile infection Continuous Medication Order 05/24/2021 05/25/2021 05/26/2021 sodium bicarbonate 75 mEq in D5W 1,075 mL infusion () 1950 (New Bag - Provider: Fe Ansari R.N.) 0106 (Stopped - Provider: Mary Irizarry R.N.) 100 mL/hr, intravenous, Continuous, Star ting on Fri05/25/21 at 1900, For 4 hours PRN Medication Order 05/24/2021 05/25/2021 05/26/2021 acetaminophen tablet 500 mg (TYLENOL) 500 mg, oral, Every 6 hours PRN, mild pa in or score 1-3 of 10, headaches, fever, Starting on Shraddha 05/24/21 at 1716 ondansetron (PF) injection 4 mg (ZOFRAN) 4 mg, intravenous, Every 6 hours PRN, na usea, vomiting, Starting on Shraddha 05/24/21 at 1716 sodium chloride 0.9 % injection 10 mL 10 mL, intravenous, As needed, line care , Starting on Shraddha 05/24/21 at 1715, Peripheral Intravenous Catheter and Rapid Infusion Catheter, prior to blood sampling, post blood transfusion or post blood sampling sodium chloride 0.9 % injection 3 mL 3 mL, intravenous, As needed, line care, Starting on Shraddha 05/24/21 at 1715, Prior to and following infusion and between multiple consecutive infusions: sodium chloride 0.9 % injection documented in this encounter Additional Health Concerns Infection Onset Date Last Indicated Resolved Time C. difficile 05/24/2021 05/24/2021 05/26/2021 3:18 PM BILLER Assessment Noted Time PHQ-9 Depression Total Score: 4 11/28/2020 10:17 AM CD T documented as of this encounter Care Teams Bag Hanger Relationship Specialty Start Date End Date Elsewhere, Pcp PCP - General Family Medicine 07/29/17 [facility] - Laboratory Medicine 04/12/[address] [address] documented as of this encounter
--- OUTSIDE RECORDS SUMMARY | 2022-04-13 12:13 | XMS_ITS | Encounter Summary ---
:1955 Author Organization [facility] Address [address] [place] [address] Care Team Providers Name Role Phone Elsewhere, Pcp Primary Care Provider Unavailable Encounter Details Date Type Department Care Team Description 05/23/2021 Hospital Department of [place], Chronic Kidne y Disease Stage 4 Glomerular Filtration Rate 15-29 (HCC); Encounter Laboratory Padmini Hernandez, Hypertension An d Chronic Kidney Disease Stage 4 (HCC); Medicine in [facility], C.N.P., Anemia; [employer] [place] D.N.P. Hyperparathyroidism Secondar y (HCC) [address] [place] [phone] Social History Tobacco Use Types Packs/Day [...] many times do you More than three agnélica es a week 12/15/2021 talk on the [...] at Date Recorded Male 05/16/2020 4:27 PM MINE GEOLOGIST documented as of this encounter Medications at [...] mg MOUTH TWICE DAILY tabletIndications: Transplant Liver ([facility]) NIFEdipine XL Take 3 tablets (90 270 tablet 3 06/17/2020 (PROCARDIA XL) 30 mg 24 mg total) by mouth hr tablet daily. ofloxacin (FLOXIN) 0.3 Administer 4 drops 5 mL 0 12/2805/24/2021 % otic solution into the right ear 2 (two) times a day. Use 2 drops twice daily with ofloxacin drops (4 drops total) x 14 days [id number] Drink 1st portion of 1 kit 0 05/21/202107/2020 [id number] prep at 6 PM the (MOVIPREP) evening [...] mg tabletIndications: total) by mouth Transplant Liver ([facility]), daily. Medication Therapy [facility] Not Anticoagulant sodium chloride USE 4 ML VIA 0 08/30/2020 021 (NEBUSAL) 3 % nebulizer NEBULIZER TWICE solution DAILY Spiriva Respimat 2.5 INHALE 2 PUFFS BY 4 g 0 01/09/20 21 07/26/2021 mcg/actuation inhaler MOUTH DAILY tacrolimus (PROGRAF) Take 2 capsules (1 360 capsule 3 202007/16/2021 0.5 mg mg total) by mouth 2 capsuleIndications: (two) times a day. Transplant Liver (HCC), Medication Therapy [employer] Not Anticoagulant torsemide (DEMADEX) 10 Take 3 tablets (30 270 tablet 3 02/2205/26/2021 mg tablet mg total) by mouth daily. UNABLE TO FIND by nasal 0 10/12/2021 (alternating) route 2 (two) times a day. Azelastine 1mg to Sinus Rinse twice daily. [facility] documented as of this encounter Miscellaneous Notes Result Encounter Note - Padmini Barry APRN, C.NJuan Miguel, D.N.P. - 05/23/2021 9:21 AM CST Phone call to patient. I advised him of his lab results from this morning. He states he is exhaustedcan barely walk a few steps without needing to stop due to fatigue and shortness of breath. He had apositive Hemoccult test with his primary care physician recently due to the drop in hemoglobin and what appears to be in acute kidney injury I have advised him to report to [facility].He will head there now. [facility] emergency room notified of his arrival. GEOLOGIST documented in this encounter Plan of Treatment Upcoming Encounters Date Type Specialty Care Team Description 04/24/2022 Appointment Laboratory Medicine Angélica Granger P.A.-C. [address] [place] [phone] 04/25/2022 Office Visit Otorhinolaryngology Dex Matta APRN, C.NJuan Miguel, M.S.N. [address] [place] [phone] 05/08/2022 Appointment Laboratory Medicine Angélica Granger P.A.-C. [address] [place] [phone] 05/08/2022 Clinical Admitting/Central Communication Scheduling 05/10/2022 Appointment Radiology Jeremie Rose M.D. [address] [place] [phone] 05/10/2022 Comprehensive Visit Orthopedic Surgery Warner Graves M.D. [address] [place] [phone] 05/22/2022 Appointment Laboratory Medicine Angélica Granger P.A.-C. [address] [place] [phone] 06/05/2022 Appointment Laboratory Medicine Angélica Granger P.A.-C. [address] [place] [phone] 06/19/2022 Appointment Laboratory Medicine Angélica Granger P.A.-C. [address] [place] [phone] 07/03/2022 Appointment Laboratory Medicine Angélica Granger P.A.-C. [address] [place] [phone] 07/17/2022 Appointment Laboratory Medicine Angélica Granger P.A.-C. [address] [place] [phone] 07/31/2022 Appointment Laboratory Medicine Angélica Granger P.A.-C. [address] [place] [phone] 08/14/2022 Appointment Laboratory Medicine Angélica Granger P.A.-C. [address] [place] [phone] 08/28/2022 Appointment Laboratory Medicine Angélica Granger P.A.-C. [address] [place] [phone] documented as of this encounter Procedures Procedure Name Priority Date/Time Associated Comments Diagnosis RENAL FUNCTION PANEL, Routine 05/23/2021 8:34 AM Chronic Kidne y Results for this S MINE GEOLOGIST Disease Stage 4 procedure ar e in Glomerular the results Filtration Rate section. 15-29 (HCC) Hypertension And Chronic Kidney Disease Stage 4 (HCC) Anemia Hyperparathyroidism Secondary (HCC) CBC WITHOUT Routine 05/23/2021 8:34 AM Chronic Kidney Results for this DIFFERENTIAL, B MINE GEOLOGIST Disease Stage 4 procedure are in Glomerular the results Filtration Rate section. 15-29 (HCC) Hypertension And Chronic Kidney Disease Stage 4 (HCC) Anemia Hyperparathyroidism Secondary (HCC) PARATHYROID HORMONE Routine 05/23/2021 8:34 AM Chronic Kidney Results for this (PTH), S MINE GEOLOGIST Disease Stage 4 procedure ar e in Glomerular the results Filtration Rate section. 15-29 (HCC) Hypertension And Chronic Kidney Disease Stage 4 (HCC) Anemia Hyperparathyroidism Secondary (HCC) documented in this encounter Results Parathyroid Hormone (PTH) (05/23/2021 8:34 AM MINE GEOLOGIST) athologist Signature Parathyroid 53 15 - 65 05/23/2021 [facility] Hormone (PTH), S pg/mL 1:21 PM MINE GEOLOGIST Comment: Biotin has been identified by the [facility] as a potential interfering substance. ??Higher concentr ations of biotin may be found in multivitamins, hair/nail supple ments, and workout supplements. ??If the result does not [facility] clinical observations, repeat testing after patient refrains fr om the use of supplements for at least 12 hours. Specimen Anatomical Collection Method Collection Time Receive d Time (Source) Location / / Volume Laterality Blood (Blood, 05/23/2021 8:34 AM 05/23/20 21 Venous) MINE GEOLOGIST 12:48 PM MINE GEOLOGIST Padmini Barry APRN, C.N.P., D.N.P. LAB BLOOD AD D-ON Performing Organization Address City/State/ZIP Code Phon e Number [facility]- [address] [place], [place] [address] [place] [address] System in [place] [address] (ABNORMAL) Renal Function Panel (05/23/2021 8:34 AM MINE GEOLOGIST) Analysis Performed At Patho logist Time Signature Potassium, P 4.1 3.6 - 5.2 05/23/2021 [facility] mmol/L 9:01 AM MINE GEOLOGIST Sodium, P 128 (L) 135 - 145 05/23/2021 [facility] mmol/L 9:01 AM MINE GEOLOGIST Chloride, P 94 (L) 98 - 107 05/23/2021 [facility] mmol/L 9:01 AM MINE GEOLOGIST Bicarbonate, P 21 (L) 22 - 29 05/23/2021 [facility] mmol/L 9:01 AM MINE GEOLOGIST Anion Gap, P 13 7 - 15 05/23/2021 [facility] 9:01 AM MINE GEOLOGIST BUN (Blood Urea 55 (H) 8 - 24 05/23/2021 [facility] Nitrogen), P mg/dL 9:01 AM MINE GEOLOGIST Creatinine 4.25 (H) 0.74 - 05/23/2021 [facility] 1.35 mg/dL 9:01 AM MINE GEOLOGIST eGFR-Black/Afri 16 (L) >=60 05/23/2021 [facility] can Serbian mL/min/BSA 9:01 AM MINE GEOLOGIST Comment: ----ADDITIONAL INFORMATION---- Estimated GFR calculated using the 2009 CKD_EPI creatinine equation. eGFR Non-Black/ <15 (L) >=60 mL/min/BSA 05/23/2021 9:01 AM MINE GEOLOGIST [facility] Serbian Comment: ----ADDITIONAL INFORMATION---- Estimated GFR calculated using the 2009 CKD_EPI creatinine equation. Calcium, Total, P 8.3 (L) 8.8 - 10.2 mg/dL 05/23/2021 9:01 AM MINE GEOLOGIST [facility] Glucose, P 119 70 - 140 mg/dL 05/23/2021 9:01 AM MINE GEOLOGIST C NFL Albumin, P 3.6 3.5 - 5.0 g/dL 05/23/2021 9:01 AM MINE GEOLOGIST C NFL Phosphorus (Inorganic), P 3.8 2.5 - 4.5 mg/dL 05/23/20 9:01 AM MINE GEOLOGIST [facility] Specimen Anatomical Collection Method Collection Time Receive d Time (Source) Location / / Volume Laterality Blood (Blood, 05/23/2021 8:34 AM 05/23/20 8:37 Venous) MINE GEOLOGIST AM MINE GEOLOGIST Padmini Barry APRN C.N.P., D.N.P. LAB BLOOD AD D-ON Performing Organization Address [facility] Phon e Number [address] [address] [place] [address] System [address] (ABNORMAL) CBC without Differential (05/23/2021 8:34 AM MINE GEOLOGIST) [facility] gist Method Time Signature Hemoglobin 6.7 (L) 13.2 - 05/23/2021 [facility] 16.6 g/dL 8:47 AM MINE GEOLOGIST Hematocrit 22.2 (L) 38.3 - 05/23/2021 [facility] 48.6 % 8:47 AM MINE GEOLOGIST Erythrocytes 2.32 (L) 4.35 - 05/23/2021 [facility] 5.65 8:47 AM MINE GEOLOGIST x10(12)/L MCV 95.7 78.2 - 05/23/2021 [facility] 97.9 fL 8:47 AM MINE GEOLOGIST RBC Distrib Width 13.4 11.8 - 05/23/2021 [facility] 14.5 % 8:47 AM MINE GEOLOGIST Platelet Count 200 135 - 317 05/23/2021 [facility] x10(9)/L 8:47 AM MINE GEOLOGIST Leukocytes 3.4 3.4 - 9.6 05/23/2021 [facility] x10(9)/L 8:47 AM MINE GEOLOGIST Specimen Anatomical Collection Method Collection Time Receive d Time (Source) Location / / Volume Laterality Blood (Blood, 05/23/2021 8:34 AM 05/23/20 8:37 Venous) MINE GEOLOGIST AM MINE GEOLOGIST Arley Banks APRN.N.P., D.N.P. LAB BLOOD AD D-ON Performing Organization Address City/[facility] Code Phon e Number [address] [address] [place] [address] System [address] documented in this encounter Visit Diagnoses Diagnosis Chronic Kidney Disease Stage 4 Glomerula r Filtration Rate 15-29 (HCC) Hypertension And Chronic Kidney Disease Stage 4 (HCC) Anemia Hyperparathyroidism Secondary (HCC) documented in this encounter Additional Health Concerns Assessment Noted Time PHQ-9 Depression Total Score: 4 11/28/2020 10:17 AM CD T documented as of this encounter Care Teams Freight Service Inspector Relationship Specialty Start Date End Date Elsewhere, Pcp PCP - General Family Medicine 07/29/17 [facility] - Laboratory Medicine 04/12/20 [place] [phone] documented as of this encounter
--- OUTSIDE RECORDS SUMMARY | 2022-04-13 12:13 | XMS_ITS | Encounter Summary ---
:1955 Author Organization [facility] Address [address] [place] [address] Care Team Providers Name Role Phone Elsewhere, Pcp Primary Care Provider Unavailable Reason for Visit Reason Comments Shortness of Breath Encounter Details Date Type Department Care Team Description 05/23/2021 Emergency [facility] Colin, Mario Alberto, Du colbert (Primary Dx); Emergency Department M.D. Anemia [address] [place] [address] [address] [place] [address] [place], [place] [phone] Social History Tobacco Use Types Packs/Day Years [...] Date Recorded Male 05/16/2020 4:27 PM CONTROL CLERK AUDITING documented as of this encounter Last Filed Vital Signs Vital Sign Reading Time Taken Comments Blood Pressure 143/80 05/23/2021 3:00 PM CONTROL CLERK AUDITING Pulse 74 05/23/2021 3:00 PM CONTROL CLERK AUDITING Temperature 36.9 ??C (98.4 ??F) 05/23/2021 11:45 AM CONTROL CLERK AUDITING Respiratory Rate 20 05/23/2021 11:16 AM CONTROL CLERK AUDITING Oxygen Saturation 97% 05/23/2021 3:00 PM CONTROL CLERK AUDITING Inhaled Oxygen Concentration - - Weight 74.7 kg (164 lb 10.9 oz) 05/23/2021 11:14 AM CONTROL CLERK AUDITING Height - - Body Mass Index 24.45 01/12/2021 9:49 AM CDT documented in this encounter Discharge Instructions Discharge InstructionsAnastasia Germain - 05/23/2021 3:06 PM CST Take a copy of this dismissal summary to your appointment(s). [place] May 24, 2021 - - 10:30 am - Hospital Follow-Up with Dr. Weston Carey, primary care provider, at [facility] RECOMMENDATIONS: * Please have labs drawn at time of this appointment [place], [place] You may have outpatient appointments at [facility] that changed during your hospitalization. Refer to your [facility] Patient Appointment Guide (PAG) for the most current schedule of appointments anddetailed instructions of tests/procedures. Call [phone], if you did not receive a PAG or need to CANCEL any [facility] appointment(s). ROL CLERK AUDITING documented in this encounter Medications at Time [...] drops (4 drops total) x 14 days [id number] Drink 1st portion of 1 kit 0 05/21/202107/2020 [id number] prep at 6 PM the (MOVIPREP) evening [...] mouth Transplant Liver (HCC), daily. Medication Therapy [facility] Not Anticoagulant [...] a day. Transplant Liver (HCC), Medication Therapy [facility] Not Anticoagulant torsemide (DEMADEX) 10 Take 3 tablets (30 270 tablet 3 02/2205/26/2021 mg tablet mg total) by mouth daily. UNABLE TO FIND by nasal 0 10/12/2021 (alternating) route 2 (two) times a day. Azelastine 1mg to Sinus Rinse twice daily. [facility] documented as of this encounter Consult Notes Francesca Cordova M.D. - 05/23/2021 1:27 PM CST ---------Miscellaneous [facility] ED consult Service Note-------- Mr. Bruce Singh a chart review was completed. The patient was not seen or evaluated by the [facility] EDConsult Team. Chart review and discussion with Emergency Department provider Mario Alberto Shaw M.D.. Mr. Singh is a 65 year old with prior medical history of autoimmune hepatitis status post liver transplant x2 in 1998 and 2012 on chronic immunosuppression, left renal artery stenosis status post stent placement, CKD, chronic sinusitis with postnasal drip, hypertension, hyperlipidemia, hypothyroidism, aspiration pneumonia in the past, COVID-19 infection in October 2020. The patient was sent in by his nephrology provider with concerns for an acute drop in his hemoglobinand also worsening of his renal function. There was concern at that time that he was acutely more dyspneic than normal. The patient was seen here in the emergency room. The patient was hemodynamically stable and not requiring any oxygen. I spent a significant amount oftime speaking to the patient at bedside. He clarified that he did not think that his dyspnea was anyworse than what it has been for the last 2 months. He also provided the same history to the emergency room physicians. His hemoglobin in clinic was 6.7 with a hematocrit of 22.2. His hemoglobin on recheck in the ED was 7.4 with a hematocrit of 22. His baseline hemoglobin seems to be in the 7 -8 range.His sodium was 125 and his creatinine was 4.25 in the clinic and 4.31 in the emergency room. His most recent baseline seems to be around 3.9 or so. The patient is making adequate urine and his electrolytes are okay. Chest x-ray in the ED showed nodular opacities in the left base which may be due to aspiration or infection. After the x-ray returned, I spoke with the patient again and confirmed that his dyspnea is not worse than at baseline. The patient did not have any fever or leukocytosis. Blood cultures were obtained in the emergency room along with sputum culture, AFB and mycobacterial cultures given his immunosuppression. However he has had aspiration episodes in the past and has been followed for that previously. He denies any current aspiration with food. I spoke with the patient. The patient is willing to abide by our recommendations however he would prefer to not get admitted to the hospital. His main concern is that he would acquire COVID again whilebeing exposed in the hospital. I spoke to Padmini Barry APRN, C.N.P., René on the phone and discussed his care. With shared decision making with the ED, the patient and myself we decided to do a trial of outpatient management. The patient was instructed to fluid restrict. He has an appointment with his primary care provider that we set up tomorrow at 10:30 a.m. along with a repeat in his CBC and his BMP. I willpersonally watch for his repeat labs and follow up on them. Padmini Barry APRN, C.NJuan Miguel, René has also set him up for a colonoscopy on Friday workup his anemia further. It is thought that his anemia is not secondary to his renal function. Optimization Recommendations: 1. As above, with shared decision making we will do a trial of outpatient management and attempt fluid restriction and repeat of his labs tomorrow. 2. If the patient's labs are concerning and his renal function is worse or his anemia is worse or weare thinking that he would not tolerate his prep for his colonoscopy due to electrolyte derangements- then I will call the patient and facilitate a direct admission with the MOD. Given the patient's concerns for being immunosuppressed and hospitalization, we thought that we would trial an outpatient approach 1st. 3. The patient has a primary care doctor appointment in [facility] at 10:30 a.m. He also has a BMP and a CBC with this appointment. 4. I will keep in communication with Padmini Barry APRN, C.N.P., LouieNDemetriusP regarding the patient's trajectory. We appreciate the collaborative care with the [facility] ED in the management of Mr. Bruce Singh. If any questions or concerns, feel free to page [phone] HIM ED Consult Team between the hours of 7a-4p. Addendum: 05/24/21 1 pm: I spoke with Dr. Carey from [facility] regarding Mr. Singh and reviewed his labs. His creatinine is a bit worse at 4.90. His sodium is back at 128. His other electrolytes are ok. The patient states that he is feeling fine except that he is having epistaxis and is weaker. I also spoke to Eve Garcia APRN, C.N.PDemetrius, LouieNFabrice from nephrology who is Padmini Hernandez APRN, C.N.P., René's colleague. We think that the worsening of the renal function is likely progression of underlying renal disease. However, wedont know how the renal function is going to react with colonoscopy prep and also how the sodium is going to respond. Furthermore, the patient is at home alone attempting to do the colonoscopy prep while being weaker and having epistaxis (with his underlying anemia). For this reason, after discussion with patient and nephrology - I facilitated a direct admission to the hospital. The patient was instructed to present to the [facility] desk at 3:30 pm. He is aware that he may lose his outpatient colonoscopy spot for tomorrow depending on his renal function and procedure availability in the hospital. He has my phone number for any questions or concerns. ROL CLERK AUDITING documented in this encounter ED Notes Mario Alberto Shaw M.D. - 05/23/2021 1:05 PM CST I have personally seen and examined this patient. I have fully participated in the care of this patient. I have reviewed all clinical information including history, physical exam, orders, and plan. I agree with the note of the resident. Mr. 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 Per report, the patient also was Hemoccult positive. On exam here, he is not hypoxic or hypotensive. He does have diffuse wheezing with scattered rhonchibilaterally on lung exam. There is no lower extremity swelling and he has unremarkable heart exam. Laboratory workup in the emergency department was remarkable for worsening hyponatremia but now morereassuring hemoglobin of 7.4. The patient's creatinine is now 4.31 which is increased from 3 weeks ago when it was less than 4. In terms of his shortness of breath, this could be multifactorial but potential causes include bronchiectasis, COPD, heart failure/volume overload, pneumonia, viral disease. To obtain a chest x-ray and will perform report of care cardiac ultrasound to assess his global systolic function and rule out a pericardial effusion. Ultimately, the patient likely will need to be admitted given his multiple ongoing issues including now more severe hyponatremia. However, will discuss this with a [facility] team prior to admission. Final Diagnoses: as of 05/25/21915 Dyspnea Anemia Mario Alberto Shaw M.D. 05/25/21915 Mario Alberto hSaw M.D. 05/25/21915 ROL CLERK AUDITING Sagar Alfonso M.D. - 05/23/2021 11:47 AM CST CHIEF COMPLAINT Shortness of Breath HISTORY OF PRESENTING ILLNESS Mr. Singh is a very pleasant 65 y.o. 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 He was sent to us from his nephrology pro vider for a new hemoglobin drop of 6.7 down from 7.5 on 04/26. They are unsure if his anemia secondary to a GI bleed or chronic kidney disease. He was Hemoccult positive on 05/01. He tells me that he has not noticed any bright red blood or dark tarry stools but maybe a few spots of red. He reports progressive dyspnea and a productive cough over the past year and a half, worse over the last few months. He tells me has a history of bronchiectasis and has been treated for multiple pneumonias. He describes difficulty getting around the house and has to stop to take multiple breaks to catch his breath. He denies any fevers, chills, chest pain, abdominal pain, confusion, or headaches. PAST MEDICAL HISTORY Reviewed in the EMR. Pertinent past medical history for this visit per the HPI. REVIEW OF SYSTEMS Constitutional: Negative for chills and fever. HENT: Positive for congestion and rhinorrhea.. Respiratory: Positive for cough and shortness of breath. Cardiovascular: Negative for chest pain. Gastrointestinal: Negative for abdominal pain and nausea. Genitourinary: Negative for dysuria. Musculoskeletal: Negative for back pain and neck pain. Skin: Negative for rash. Neurological: Negative for headaches. Psychiatric/Behavioral: Negative for confusion. Initial Vitals [05/23/21 1116] Temperature Pulse Rate Heart Rate Resp Rate Blood Pressure SpO2 37 ??C 85 -- 20 143/75 99 % Pain Score -- PHYSICAL EXAMINATION Constitutional: Nursing note and vitals reviewed. HENT: Head: Atraumatic. Nose: No nasal discharge. Mouth/Throat: Mucous membranes are moist. No tonsillar exudate. Eyes: Conjunctivae and EOM are normal. Neck: Neck supple. Cardiovascular: Normal rate, regular rhythm and normal heart sounds. Pulmonary/Chest: Bilateral rhonchorous breath sounds with some expiratory wheezing. Productive sounding cough. Abdominal: Soft. Nontender, nondistended. Musculoskeletal: General: Normal range of motion. Cervical back: Normal range of motion and neck supple. Neurological: Alert and oriented to person, place, and time. Skin: Skin is warm, dry and normal color. She is not diaphoretic. Psychiatric: She has a normal mood and affect. Behavior is normal. ASSESSMENT & PLAN Briefly this is a 65 y.o. 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 He was found to have a hemoglobin of 6.7 this morning. Here his hemoglobin is 7.4. On chart review this is actually quite similar to his hemoglobin level 2 weeks ago. On exam he has rhonchorous breath sounds bilaterally with some expiratory wheezing. He is afebrile and hemodynamically stable. Differential diagnosis includes but is not limited to multifactorial dyspnea, anemia, pneumonia, volume overload, atypical bacterial infection, worsening bronchiectasis, pericardial effusion, pleural effusions, electrolyte abnormality, dehydration. Less likely ACS. Initial workup and management will include chest x-ray and labs. Will trial a DuoNeb here. Will sendsome sputum for cultures and testing. ED Course as of 05/23/212125May 23, 2021 1201 Hemoglobin(!): 7.4 1457 Troponin T, 2 hr, 5th gen(!): 45 1457 2H Delta: -3 1457 2H Delta Interp: Not Changing 1457 Lactate: 1.4 1458 Sodium, P(!): 125 1509 The [place] team has been very helpful scheduling follow-up for this patient for tomorrow morning. Plan is to repeat labs and have him see his primary care provider. Patient was comfortable with this plan. All return precautions were discussed in detail. Patient was discharged home in stable cond ition. Final Diagnoses: as of 05/23/212125 Dyspnea Anemia Sagar Fall M.D. I reviewed previous medical records including lab results and EKG images/reports. I personally reviewed the lab result(s) and my interpretation is documented in ED Course. I reviewed the radiology report(s). Sagar Alfonso M.D. Resident 05/23/212136 ROL CLERK AUDITING Margoth Haywood R.N. - 05/23/2021 11:23 AM CST Pt states he went to his PCP for blood work today after having bloody stools. He was informed to come here after his Hgb was found to be 6.7. VSS. Margoth Haywood R.N. 05/23/21 1125 ROL CLERK AUDITING documented in this encounter Plan of Treatment Upcoming Encounters Date Type Specialty Care Team Description 04/24/2022 Appointment Laboratory Medicine Angélica Granger P.A.-C. [address] [place] [phone] 04/25/2022 Office Visit Otorhinolaryngology GosDex jackson APRN, C.N.P., M.S.N. [address] [place] [phone] 05/08/2022 Appointment Laboratory Medicine Angélica Granger P.A.-C. [address] [place] [phone] 05/08/2022 Clinical Admitting/Central Communication Scheduling 05/10/2022 Appointment Radiology Jeremie Rose M.D. [address] [place] [phone] 05/10/2022 Comprehensive Visit Orthopedic Surgery Warner Graves M.D. [address] [place] [phone] 05/22/2022 Appointment Laboratory Medicine Angélica Granger P.A.-C. [address] [place] [phone] 06/05/2022 Appointment Laboratory Medicine Angélica Granger P.A.-C. [address] [place] [phone] 06/19/2022 Appointment Laboratory Medicine Angélica Granger P.A.-C. [address] [place] [phone] 07/03/2022 Appointment Laboratory Medicine Angélica Granger P.A.-C. [address] [place] [phone] 07/17/2022 Appointment Laboratory Medicine Angélica Granger P.A.-C. [address] [place] [phone] 07/31/2022 Appointment Laboratory Medicine Angélica GrangerEdmundo [address] [place] [phone] 08/14/2022 Appointment Laboratory Medicine Angélica GrangerEdmundo [address] [place] [phone] 08/28/2022 Appointment Laboratory Medicine Angélica GrangerEdmundo [address] [place] [phone] documented as of this encounter Procedures Procedure Name Priority Date/Time Associated Comments Diagnosis LACTATE, B/P Timed 05/23/2021 1:52 Results for PM CONTROL CLERK AUDITING this procedure are in the results section. TROPONIN T, 2H/6H, Timed 05/23/2021 1:05 Result s for 5TH GEN, P PM CONTROL CLERK AUDITING this procedure are in the results section. BACTERIA / RIMMA STAT 05/23/2021 1:05 Result s for CULTURE, BLOOD PM CONTROL CLERK AUDITING this procedur e are in the results section. LACTATE, POCT, B Routine 05/23/2021 12:55 Results for PM CONTROL CLERK AUDITING this procedure are in the results section. LACTATE, POCT, B STAT 05/23/2021 12:55 Results for PM CONTROL CLERK AUDITING this procedure are in the results section. BACTERIA / RIMMA STAT 05/23/2021 12:54 Resul ts for CULTURE, BLOOD PM CONTROL CLERK AUDITING this procedur e are in the results section. BACTERIAL CULTURE, STAT 05/23/2021 12:39 Resul ts for AEROBIC + SUSC, RESP PM CONTROL CLERK AUDITING this pr ocedure are in the results section. MYCOBACTERIAL STAT 05/23/2021 12:39 Results fo r CULTURE, V PM CONTROL CLERK AUDITING this procedure are in the results section. FUNGAL SMEAR STAT 05/23/2021 12:39 Results for PM CONTROL CLERK AUDITING this procedure are in the results section. ACID FAST SMEAR FOR STAT 05/23/2021 12:39 Resu lts for MYCOBACTERIUM PM CONTROL CLERK AUDITING this procedure are in the results section. GRAM STAIN STAT 05/23/2021 12:39 Results for PM CONTROL CLERK AUDITING this procedure are in the results section. FUNGAL CULTURE, STAT 05/23/2021 12:39 Results for ROUTINE PM CONTROL CLERK AUDITING this procedure are in the results section. DX CHEST AP OR PA RAD - Semiurgent 05/23/2021 12:00 Re sults for AND LATERAL 2 VIEWS (Fast; most ED PM CONTROL CLERK AUDITING this p rocedure patients; some are in the inpatients) results section. VBG & LYTES CG8+, Routine 05/23/2021 11:37 Result s for POCT, B AM CONTROL CLERK AUDITING this procedure are in the results section. TROPONIN T, STAT 05/23/2021 11:37 Results for BASELINE, 5TH GEN, P AM CONTROL CLERK AUDITING this pr ocedure are in the results section. HEPATIC FUNCTION STAT 05/23/2021 11:37 Results for PANEL, S AM CONTROL CLERK AUDITING this procedure are in the results section. BLOOD GAS, POCT, B STAT 05/23/2021 11:37 Resul ts for AM CONTROL CLERK AUDITING this procedure are in the results section. PROTHROMBIN TIME STAT 05/23/2021 11:37 Results for (PT), P AM CONTROL CLERK AUDITING this procedure are in the results section. CBC WITH STAT 05/23/2021 11:37 Results for DIFFERENTIAL, B AM CONTROL CLERK AUDITING this procedu re are in the results section. TYPE AND SCREEN STAT 05/23/2021 11:37 Results for AM CONTROL CLERK AUDITING this procedure are in the results section. LACTATE, B/P STAT 05/23/2021 11:37 Results for AM CONTROL CLERK AUDITING this procedure are in the results section. AMMONIA STAT 05/23/2021 11:37 Results for AM CONTROL CLERK AUDITING this procedure are in the results section. BASIC METABOLIC STAT 05/23/2021 11:37 Results for PANEL, S/P AM CONTROL CLERK AUDITING this procedure are in the results section. SARS CORONAVIRUS 2, STAT 05/23/2021 11:22 Resu lts for PCR RAPID, V AM CONTROL CLERK AUDITING this procedure are in the results section. ECG STAT 05/23/2021 11:17 Results for AM CONTROL CLERK AUDITING this procedure are in the results section. documented in this encounter Results Lactate, 3 hour draw (05/23/2021 1:52 PM CONTROL CLERK AUDITING) P athologist Signature Lactate, P 1.4 0.5 - 2.2 05/23/2021 [facility] mmol/L 2:16 PM CONTROL CLERK AUDITING Specimen Anatomical Collection Method Collection Time Receive d Time (Source) Location / / Volume Laterality Blood (Blood, 05/23/2021 1:52 PM 05/23/20 21 2:02 Venous) CONTROL CLERK AUDITING PM CONTROL CLERK AUDITING Magda Redding M.D. LAB BLOOD NON ADD-ON Performing Organization Address City/[facility] Phon e Number [facility] - [address] [place], [place] [address] [facility] [place] [address] Laboratories-[address] Bacteria / Rimma Culture, Blood #1 (05/23/2021 1:05 PM CONTROL CLERK AUDITING) [facility] Method Time Signature Bacteria/Negar No growth 05/28/2021 [facility] da Culture, after 5 2:02 PM CONTROL CLERK AUDITING Blood days of incubation. Specimen (Source) Anatomical Collection Method Collection Time Re ceived Time Location / / Volume Laterality Blood (Blood, 05/23/2021 1:05 05/23/2021 1:56 Peripheral Draw) PM CONTROL CLERK AUDITING PM CONTROL CLERK AUDITING Comment: Specimen Source Site: Blood Sagar Fall M.D. LAB MICROBIOLOGY - GENER AL ORDERABLES Performing Organization Address [facility] Phon e Number [facility] - [address] [place], [place] [address] [place] [address] (ABNORMAL) Troponin T, 2H/6H, 5th Gen (05/23/2021 1:05 PM CONTROL CLERK AUDITING) [facility] Method Time Signature Troponin T, 2 45 (H) <=15 ng/L 05/23/2021 [facility] hr, 5th gen 1:54 PM CONTROL CLERK AUDITING 2H Delta -3 ng/L 05/23/2021 [facility] 1:54 PM CONTROL CLERK AUDITING 2H Delta Not Changing 05/23/2021 [facility] Interp 1:54 PM CONTROL CLERK AUDITING Troponin T, 6 CANCELED ng/L 05/23/2021 [facility] hr, 5th gen 1:54 PM CONTROL CLERK AUDITING Comment: Result canceled by the ancillar y. Specimen Anatomical Collection Method Collection Time Receive d Time (Source) Location / / Volume Laterality Blood (Blood, 05/23/2021 1:05 PM 05/23/20 21 1:11 Venous) CONTROL CLERK AUDITING PM CONTROL CLERK AUDITING Narrative [facility] - [facility] - 05/23/2021 1:54 PM CONTROL CLERK AUDITING Specimen Information: Specimen ID: [id number] Specimen Type: Blood Specimen Collection Start Date: 05/23/20 ??1:05 PM Specimen Received Date: 05/23/2021 ??1:1 1 PM Specimen ID: [id number] Specimen Type: Blood Magda Redding M.D. LAB BLOOD TROPONIN Performing Organization Address City/State/ZIP Code Phon e Number [facility] - [address] [place], [place] [address] [facility] [place] [address] [facility] [address] Lactate, POCT (05/23/2021 12:55 PM CONTROL CLERK AUDITING) P athologist Signature Lactate, POCT 0.93 0.50 - 05/23/2021 [facility] 2.20 1:13 PM CONTROL CLERK AUDITING mmol/L Sample Site, Venstick 05/23/2021 [facility] POCT 1:13 PM CONTROL CLERK AUDITING Specimen Anatomical Collection Method Collection Time Receive d Time (Source) Location / / Volume Laterality Blood 05/23/2021 12:55 05/23/2021 1:13 PM CONTROL CLERK AUDITING PM CONTROL CLERK AUDITING Unknown Provider LAB POCT ORDERABLES - DEVICE Performing Organization Address City/[facility]/ZIP Code Phon e Number [facility] [address] [place] [address] [place] [address] [facility] [address] Lactate, POCT (05/23/2021 12:55 PM CONTROL CLERK AUDITING) Analysis Performed At Patho logist Time Signature Lactate, POCT Collected DEFAULT 05/23/2021 SML[facility] 12:55 PM CONTROL CLERK AUDITING Specimen Anatomical Collection Method Collection Time Receive d Time (Source) Location / / Volume Laterality Blood (Blood, 05/23/2021 12:55 05/23/2021 Venous) PM CONTROL CLERK AUDITING 12:55 PM CONTROL CLERK AUDITING Sagar Fall M.D. LAB POCT ORDERABLES - DE VICE Performing Organization Address City/State/ZIP Code Phon e Number [facility] [facility] [address] [place], [place] [address] [facility] [place] [address] [facility] [address] Bacteria / Rimma Culture, Blood # 2 (05/23/2021 12:54 PM CONTROL CLERK AUDITING) [employer] Method Time Signature Bacteria/Negar No growth 05/28/2021 DTL da Culture, after 5 2:02 PM CONTROL CLERK AUDITING Blood days of incubation. Specimen (Source) Anatomical Collection Method Collection Time Re ceived Time Location / / Volume Laterality Blood (Blood, 05/23/2021 12:54 05/23/2021 1:57 Peripheral Draw) PM CONTROL CLERK AUDITING PM CONTROL CLERK AUDITING Comment: Specimen Source Site: Blood Sagar Fall M.D. LAB MICROBIOLOGY - GENER AL ORDERABLES Performing Organization Address City/[facility]/ZIP Code Phon e Number [facility] - [phone] [place] [address] Mycobacterial Culture (05/23/2021 12:39 PM CONTROL CLERK AUDITING) [employer] Method Time Signature Mycobacterial No growth 07/05/2021 DTL Culture after 42 1:01 AM CONTROL CLERK AUDITING days of incubation . Specimen Anatomical Collection Method Collection Time Receive d Time (Source) Location / / Volume Laterality Sputum (Sputum) 05/23/2021 12:39 05/23/20 21 1:31 PM CONTROL CLERK AUDITING PM CONTROL CLERK AUDITING Comment: Specimen Source Site: Sputum Sagar Fall M.D. LAB MICROBIOLOGY - GENER AL ORDERABLES Performing Organization Address City/[facility]/ZIP Code Phon e Number [facility] - 200 [place], [place] [address] [facility] [place] [place] [address] [facility] 200 [facility] Acid Fast Smear For Mycobacterium (05/23/2021 12:39 PM CONTROL CLERK AUDITING) [employer] Method Time Signature Acid Fast Smear Negative. 05/23/2021 DTL For Mycobacterium 10:14 PM CONTROL CLERK AUDITING Specimen Anatomical Collection Method Collection Time Receive d Time (Source) Location / / Volume Laterality Sputum (Sputum) 05/23/2021 12:39 05/23/20 21 1:31 PM CONTROL CLERK AUDITING PM CONTROL CLERK AUDITING Comment: Specimen Source Site: Sputum Sagar Fall M.D. LAB MICROBIOLOGY - GENER AL ORDERABLES Performing Organization Address City/State/ZIP Code Phon e Number [facility] - [address] [place], [place] [address] [place] [id number] [place] [address] (ABNORMAL) Fungal Culture, Routine (05/23/2021 12:39 PM CONTROL CLERK AUDITING) Patholo gist Method Time Signature Fungal ASPERGILLUS VERSICOLOR COMPLEX DTL Culture, Few 12:27 PM CONTROL CLERK AUDITING Routine (A) Comment: Susceptibility testing is not indicated for all molds. Infectious Diseases consult is required to order mold susceptibility testing. Specimen Anatomical Collection Method Collection Time Receive d Time (Source) Location / / Volume Laterality Sputum (Sputum) 05/23/2021 12:39 05/23/20 21 1:31 PM CONTROL CLERK AUDITING PM CONTROL CLERK AUDITING Comment: Specimen Source Site: Sputum Sagar Fall M.D. LAB MICROBIOLOGY - GENER AL ORDERABLES Performing Organization Address City/[facility]/ZIP Code Phon e Number [facility] - [phone] [place] [address] Fungal Smear (05/23/2021 12:39 PM CONTROL CLERK AUDITING) P athologist Signature Fungal Smear Negative. 05/23/2021 DTL 6:34 PM CONTROL CLERK AUDITING Specimen Anatomical Collection Method Collection Time Receive d Time (Source) Location / / Volume Laterality Sputum (Sputum) 05/23/2021 12:39 05/23/20 21 1:31 PM CONTROL CLERK AUDITING PM CONTROL CLERK AUDITING Comment: Specimen Source Site: Sputum Sagar Fall M.D. LAB MICROBIOLOGY - GENER AL ORDERABLES Performing Organization Address City/[facility]/ZIP Code Phon e Number [facility] - [address] [place] [address] [place] [phone] [place] [address] (ABNORMAL) Bacterial Culture, Aerobic + Susc, Resp (05/23/2021 12:39 PM CONTROL CLERK AUDITING) Patholo gist Method Time Signature Bacterial With usual 05/28/2021 DTL Culture, efrem (A) 1:13 PM CONTROL CLERK AUDITING Aerobic, Resp Bacterial SERRATIA MARCESCENS 05/28/2021 DTL Culture, 1+ 1:13 PM CONTROL CLERK AUDITING Aerobic, Resp (A) Comment: This organism may contain an inducible b eta-lactamase. Second- or third-generation cephalospori n monotherapy may result in the emergence of high-level resistance. Preferred empiric therapy, p ending antimicrobial susceptibility results, is cefepime, a f luoroquinolone, or a carbapenem, unless clinically contr aindicated. Specimen Anatomical Collection Method Collection Time Receive d Time (Source) Location / / Volume Laterality Sputum (Sputum) 05/23/2021 12:39 05/23/20 21 1:31 PM CONTROL CLERK AUDITING PM CONTROL CLERK AUDITING Comment: Specimen Source Site: Sputum Organism Antibiotic [...] Resistant DAVID (MCG/ML) Serratia marcescens Ceftriaxone SUSCEPTIBILITY, 32 mcg/mL: R esistant ADVID (MCG/ML) Serratia marcescens Ceftazidime SUSCEPTIBILITY, >16 mcg/mL: Resistant DAVID (MCG/ML) Serratia marcescens Cefepime SUSCEPTIBILITY, >16 mcg/mL: Resistant DAVID (MCG/ML) Serratia marcescens Amikacin SUSCEPTIBILITY, <=8 mcg/mL: Susceptible DAVID (MCG/ML) Serratia marcescens Gentamicin SUSCEPTIBILITY, <=1 mcg/mL: Susceptible DAVID (MCG/ML) Serratia marcescens Tobramycin SUSCEPTIBILITY, <=1 mcg/mL: Susceptible DAVID (MCG/ML) Serratia marcescens Aztreonam SUSCEPTIBILITY, 8 mcg/mL: In termediate DAVID (MCG/ML) Serratia marcescens Trimethoprim + SUSCEPTIBILITY, <=0.5/9.5 mc g/mL: Sulfamethoxazole DAVID (MCG/ML) Susceptible Sagar Fall M.D. LAB MICROBIOLOGY - GENER AL ORDERABLES Performing Organization Address [facility]/ZIP Code Phon e Number [facility] [address] [place], [place] [address] [place] [address] [facility] Gram Stain (05/23/2021 12:39 PM CONTROL CLERK AUDITING) athologist Signature Gram Stain Mixed efrem. 05/23/2021 DTL White blood cells,Many. 2:28 PM CONTROL CLERK AUDITING Specimen Anatomical Collection Method Collection Time Receive d Time (Source) Location / / Volume Laterality Sputum (Sputum) 05/23/2021 12:39 05/23/20 21 1:31 PM CONTROL CLERK AUDITING PM CONTROL CLERK AUDITING Comment: Specimen Source Site: Sputum Sagar Fall M.D. LAB MICROBIOLOGY - GENER AL ORDERABLES Performing Organization Address City/[facility] Code Phon e Number [address] [place] [phone] DX Chest AP or PA and Lateral 2 Views (05/23/2021 12:00 PM CONTROL CLERK AUDITING) Anatomical Region Laterality Modality Chest, Thoracic RST LOS, Thoracic ARZ LOS, Thoracic N/A Digital Radiography FLA LOS Specimen (Source) Anatomical Collection Method Collection Time Re ceived Time Location / / Volume Laterality 05/23/2021 12:34 PM CONTROL CLERK AUDITING Impressions 05/23/2021 12:44 PM CONTROL CLERK AUDITING Nodular opacities in the left base may be due to aspiration or infection. Pleural thickening and/or sca rring. Degenerative changes of the spine. Narrative 05/23/2021 12:44 PM CONTROL CLERK AUDITING EXAM: ??DX CHEST AP OR PA AND LATERAL 2 VIEWS Procedure Note Leonid Murphy M.D. - 05/23/2021For matting of this note might be different from the original. EXAM: DX CHEST AP OR PA AND LATERAL 2 EWS IMPRESSION: Nodular opacities in the left base may b e due to aspiration or infection. Pleural thickening and/or sca rring. Degenerative changes of the spine. Magda [facility] PROCE DURES (ABNORMAL) Venous Blood Gas and Electrolytes CG8+, POCT (05/23/2021 11:37 AM CONTROL CLERK AUDITING) P athologist Signature Sample Site, Venstick 05/23/2021 PCSM POCT 11:49 AM CONTROL CLERK AUDITING Comment: ----ADDITIONAL INFORMATION---- Performed at the Point of Care pH, Venous, POCT, B 7.50 (H) 7.32 - 7.43 05/23/2021 11:49 A M CONTROL CLERK AUDITING PCSM Comment: ----ADDITIONAL INFORMATION---- Performed at the Point of Care pCO2, Venous, POCT, B 30 (L) 41 - 51 mm Hg 05/23/2021 11: 49 AM CONTROL CLERK AUDITING PCSM Comment: ----ADDITIONAL INFORMATION---- Performed at the Point of Care pO2, Venous, POCT, B <18 Not Applicable mm Hg 05/23/20 11:49 AM CONTROL CLERK AUDITING PCSM Comment: ----ADDITIONAL INFORMATION---- Performed at the Point of Care Base Excess, Venous, POCT, B 0 Not Applicable mmol/L 05/23/2021 11:49 AM CONTROL CLERK AUDITING PCSM Comment: ----ADDITIONAL INFORMATION---- Performed at the Point of Care HCO3, Venous, POCT, B 24 Not Applicable mmol/L 2020 11:49 AM CONTROL CLERK AUDITING PCSM Comment: ----ADDITIONAL INFORMATION---- Performed at the Point of Care Sodium, POCT, B 129 (L) 135 - 145 mmol/L 05/23/2021 11:49 AM CONTROL CLERK AUDITING PCSM Comment: ----ADDITIONAL INFORMATION---- Performed at the Point of Care Potassium, POCT, B 3.7 3.6 - 5.2 mmol/L 05/23/2021 11: 49 AM CONTROL CLERK AUDITING PCSM Comment: ----ADDITIONAL INFORMATION---- Performed at the Point of Care Calcium, Ionized, POCT, B 4.50 (L) 4.65 - 5.30 mg/dL 06/2020 11:49 AM CONTROL CLERK AUDITING PCSM Comment: ----ADDITIONAL INFORMATION---- Performed at the Point of Care Glucose, POCT, B 134 70 - 140 mg/dL 05/23/2021 11:49 A M CONTROL CLERK AUDITING PCSM Comment: ----ADDITIONAL INFORMATION---- Performed at the Point of Care Hematocrit, POCT, B 22.0 (L) 38.3 - 48.6 % 05/23/2021 11:49 AM CONTROL CLERK AUDITING PCSM Comment: ----ADDITIONAL INFORMATION---- Performed at the Point of Care Specimen Anatomical Collection Method Collection Time Receive d Time (Source) Location / / Volume Laterality Blood 05/23/2021 11:37 05/23/2021 AM CONTROL CLERK AUDITING 11:49 AM CONTROL CLERK AUDITING Unknown Provider LAB POCT ORDERABLES - DEVICE Performing Organization Address City/[facility]/ZIP [facility] [place] Phon e Number POC [facility] INPATIENT [address] [place], [place] [address] [place] [address] [facility] [address] [place] [address] (ABNORMAL) Troponin T, Baseline, 5th gen (05/23/2021 11:37 AM CONTROL CLERK AUDITING) P athologist Signature Troponin T, 48 (H) <=15 ng/L 05/23/2021 STMA Baseline, 5th 12:14 PM CONTROL CLERK AUDITING gen Specimen Anatomical Collection Method Collection Time Receive d Time (Source) Location / / Volume Laterality Blood (Blood, 05/23/2021 11:37 05/23/2021 Venous) AM CONTROL CLERK AUDITING 11:49 AM CONTROL CLERK AUDITING Magda Redding M.D. LAB BLOOD TROPONIN Performing Organization Address City/[facility]/ZIP Code Phon e Number [facility] - [address] [place], [place] [address] [place] [address] [facility] [address] Type and Screen (with reflex Antibody ID) (05/23/2021 11:37 AM CONTROL CLERK AUDITING) Patholo gist Method Time Signature ABORh O Pos Not 05/23/2021 STRM applicable 12:26 PM CONTROL CLERK AUDITING Antibody Negative Negative 05/23/2021 STRM Screen 12:40 PM CONTROL CLERK AUDITING Type & Screen 05/26/2021 05/23/2021 STRM Expiration 23:59 12:26 PM CONTROL CLERK AUDITING Testing Rosalio DEFAULT 05/23/2021 STRM Location 12:02 PM CONTROL CLERK AUDITING Specimen Anatomical Collection Method Collection Time Receive d Time (Source) Location / / Volume Laterality Blood (Blood, 05/23/2021 11:37 05/23/2021 Venous) AM CONTROL CLERK AUDITING 12:02 PM CONTROL CLERK AUDITING Magda Redding M.D. LAB BLOOD BANK TEST ORDERABL ES Performing Organization Address City/[facility]/ZIP Code Phon e Number [facility] - [address] [place], [place] [address] [facility] [place], [place] [id number] [place] [address] [address] [facility] Prothrombin Time (PT) (05/23/2021 11:37 AM CONTROL CLERK AUDITING) P athologist Signature Prothrombin 11.7 9.4 - 12.5 05/23/2021 STMA Time, P sec 11:57 AM CONTROL CLERK AUDITING INR 1.1 0.9 - 1.1 05/23/2021 STMA 11:57 AM CONTROL CLERK AUDITING Comment: ----ADDITIONAL INFORMATION---- Standard intensity warfarin therapeutic range: 2.0 to 3.0 ?? High intensity warfarin therapeutic rang e: 2.5 to 3.5 Specimen Anatomical Collection Method Collection Time Receive d Time (Source) Location / / Volume Laterality Blood (Blood, 05/23/2021 11:37 05/23/2021 Venous) AM CONTROL CLERK AUDITING 11:49 AM CONTROL CLERK AUDITING Magda Redding M.D. LAB BLOOD ADD-ON Performing Organization Address City/[facility]/ZIP Code Phon e Number [facility] - [phone] [place] [address] [address] [facility] Lactate, baseline (05/23/2021 11:37 AM CONTROL CLERK AUDITING) P athologist Signature Lactate, P 1.1 0.5 - 2.2 05/23/2021 STMA mmol/L 12:02 PM CONTROL CLERK AUDITING Specimen Anatomical Collection Method Collection Time Receive d Time (Source) Location / / Volume Laterality Blood (Blood, 05/23/2021 11:37 05/23/2021 Venous) AM CONTROL CLERK AUDITING 11:49 AM CONTROL CLERK AUDITING Magda Redding M.D. LAB BLOOD NON ADD-ON Performing Organization Address City/State/ZIP Code Phon e Number [facility] - [address] [place] [address] [place] [phone] [place] [address] Street SW (ABNORMAL) Hepatic Function Panel (05/23/2021 11:37 AM CONTROL CLERK AUDITING) [facility] Method Time Signature Bilirubin, Total, S 0.3 <=1.2 05/23/2021 DTL mg/dL 12:29 PM CONTROL CLERK AUDITING Bilirubin, Direct, S <0.2 0.0 - 0.3 05/23/2021 DTL mg/dL 12:29 PM CONTROL CLERK AUDITING Aspartate 24 8 - 48 05/23/2021 DTL Aminotransferase U/L 12:29 PM CONTROL CLERK AUDITING (AST), S Alanine 20 7 - 55 05/23/2021 DTL Aminotransferase U/L 12:29 PM CONTROL CLERK AUDITING (ALT), S Alkaline 107 40 - 129 05/23/2021 DTL Phosphatase, S U/L 12:29 PM CONTROL CLERK AUDITING Albumin, S 3.6 3.5 - 5.0 05/23/2021 DTL g/dL 12:29 PM CONTROL CLERK AUDITING Protein, Total, S 5.5 (L) 6.3 - 7.9 05/23/2021 DTL g/dL 12:29 PM CONTROL CLERK AUDITING Specimen Anatomical Collection Method Collection Time Receive d Time (Source) Location / / Volume Laterality Blood (Blood, 05/23/2021 11:37 05/23/2021 Venous) AM CONTROL CLERK AUDITING 12:10 PM CONTROL CLERK AUDITING Magda Redding M.D. LAB BLOOD ADD-ON Performing Organization Address City/State/ZIP Code Phon e Number [facility] - [address] [place] [address] [facility] [place] [address] [facility]-[address] (ABNORMAL) CBC with Differential, Blood (05/23/2021 11:37 AM CONTROL CLERK AUDITING) [facility] Method Time Signature Hemoglobin 7.4 (L) 13.2 - 05/23/2021 STMA 16.6 g/dL 11:52 AM CONTROL CLERK AUDITING Hematocrit 22.4 (L) 38.3 - 05/23/2021 STMA 48.6 % 11:52 AM CONTROL CLERK AUDITING Erythrocytes 2.36 (L) 4.35 - 05/23/2021 STMA 5.65 11:52 AM CONTROL CLERK AUDITING x10(12)/L MCV 94.9 78.2 - 05/23/2021 STMA 97.9 fL 11:52 AM CONTROL CLERK AUDITING RBC Distrib Width 13.7 11.8 - 05/23/2021 STMA 14.5 % 11:52 AM CONTROL CLERK AUDITING Platelet Count 175 135 - 317 05/23/2021 STMA x10(9)/L 11:52 AM CONTROL CLERK AUDITING Leukocytes 3.5 3.4 - 9.6 05/23/2021 STMA x10(9)/L 11:52 AM CONTROL CLERK AUDITING Neutrophils 2.85 1.56 - 05/23/2021 STMA 6.45 11:52 AM CONTROL CLERK AUDITING x10(9)/L Lymphocytes 0.24 (L) 0.95 - 05/23/2021 STMA 3.07 11:52 AM CONTROL CLERK AUDITING x10(9)/L Monocytes 0.40 0.26 - 05/23/2021 STMA 0.81 11:52 AM CONTROL CLERK AUDITING x10(9)/L Eosinophils 0.04 0.03 - 05/23/2021 STMA 0.48 11:52 AM CONTROL CLERK AUDITING x10(9)/L Basophils <0.03 0.01 - 05/23/2021 STMA 0.08 11:52 AM CONTROL CLERK AUDITING x10(9)/L Specimen Anatomical Collection Method Collection Time Receive d Time (Source) Location / / Volume Laterality Blood (Blood, 05/23/2021 11:37 05/23/2021 Venous) AM CONTROL CLERK AUDITING 11:49 AM CONTROL CLERK AUDITING Magda Redding M.D. LAB BLOOD ADD-ON Performing Organization Address City/State/ZIP Code Phon e Number [facility] - [address] [place] [address] [place] [address] [facility] 200 [facility] (ABNORMAL) Basic Metabolic Panel (05/23/2021 11:37 AM CONTROL CLERK AUDITING) Analysis Performed At Patho logist Time Signature Potassium, P 3.9 3.6 - 5.2 05/23/2021 STMA mmol/L 12:07 PM CONTROL CLERK AUDITING Sodium, P 125 (L) 135 - 145 05/23/2021 STMA mmol/L 12:07 PM CONTROL CLERK AUDITING Chloride, P 91 (L) 98 - 107 05/23/2021 STMA mmol/L 12:07 PM CONTROL CLERK AUDITING Bicarbonate, P 21 (L) 22 - 29 05/23/2021 STMA mmol/L 12:07 PM CONTROL CLERK AUDITING Anion Gap, P 13 7 - 15 05/23/2021 STMA 12:07 PM CONTROL CLERK AUDITING BUN (Blood Urea 59 (H) 8 - 24 05/23/2021 STMA Nitrogen), P mg/dL 12:07 PM CONTROL CLERK AUDITING Creatinine 4.31 (H) 0.74 - 05/23/2021 STMA 1.35 mg/dL 12:07 PM CONTROL CLERK AUDITING eGFR-Black/Afri 15 (L) >=60 05/23/2021 STMA can [place]e mL/min/BSA 12:07 PM CONTROL CLERK AUDITING Comment: ----ADDITIONAL INFORMATION---- Estimated GFR calculated using the 2009 CKD_EPI creatinine equation. eGFR Non-Black/ <15 (L) >=60 mL/min/BSA 05/23/2021 12:07 PM STMA [place]e CONTROL CLERK AUDITING Comment: ----ADDITIONAL INFORMATION---- Estimated GFR calculated using the 2009 CKD_EPI creatinine equation. Calcium, Total, P 8.4 (L) 8.8 - 10.2 mg/dL 05/23/2021 12:0 7 PM CONTROL CLERK AUDITING STMA Glucose, P 139 70 - 140 mg/dL 05/23/2021 12:07 PM CONTROL CLERK AUDITING STMA Specimen Anatomical Collection Method Collection Time Receive d Time (Source) Location / / Volume Laterality Blood (Blood, 05/23/2021 11:37 05/23/2021 Venous) AM CONTROL CLERK AUDITING 11:49 AM CONTROL CLERK AUDITING Magda Redding M.D. LAB BLOOD ADD-ON Performing Organization Address City/State/ZIP Code Phon e Number [facility] - [address] [place], [place] [address] [place] [address] [facility] 200 [facility] Ammonia (05/23/2021 11:37 AM CONTROL CLERK AUDITING) P athologist Signature Ammonia, P <10 <=30 mcmol/L 05/23/2021 DTL 12:30 PM CONTROL CLERK AUDITING Specimen Anatomical Collection Method Collection Time Receive d Time (Source) Location / / Volume Laterality Blood (Blood, 05/23/2021 11:37 05/23/2021 Venous) AM CONTROL CLERK AUDITING 11:52 AM CONTROL CLERK AUDITING Magda Redding M.D. LAB BLOOD NON ADD-ON Performing Organization Address City/State/ZIP Code Phon e Number [facility] - [address] [place], [place] [address] [facility] [place] [address] Laboratories-[address] Venous Blood Gas and Electrolytes, POCT (05/23/2021 11:37 AM CONTROL CLERK AUDITING) Analysis Performed At Patho logist Time Signature ABG and Lytes, Collected DEFAULT 05/23/2021 SMLX POCT, B 11:37 AM CONTROL CLERK AUDITING Specimen Anatomical Collection Method Collection Time Receive d Time (Source) Location / / Volume Laterality Blood (Other, 05/23/2021 11:37 05/23/2021 Specify in AM CONTROL CLERK AUDITING 11:37 AM CONTROL CLERK AUDITING Comments) Magda Redding M.D. LAB POCT ORDERABLES - DEVICE Performing Organization Address City/State/ZIP Code Phon e Number [facility] - [address] [place], [place] [address] [facility] [place] [address] Laboratories-[address] SARS Coronavirus 2, PCR Rapid, V Symptomatic (05/23/2021 11:22 AM CONTROL CLERK AUDITING) Patholo gist Method Time Signature SARS CoV-2, Undetected Undetected 05/23/2021 STMA PCR, Rapid, V 11:53 AM CONTROL CLERK AUDITING Comment: ----ADDITIONAL INFORMATION---- This RT-PCR test was performed using the Yadiel SARS-CoV-2 and Influenza A/B Reagent assay from [employer], which has received Emergency Use Authori zation(EUA) by the U.S. Food and Drug Administration . Fact sheets for this Emergency Use Autho rization (EUA) assay can be found at the following link s: For Healthcare Providers: https://www.fda.gov/media/222988/downloa d For Patients: https://www.fda.gov/media/855179/downloa d SARS Coronavirus 2, Source, Swab, Nasopharynx 06/2020 11:25 AM CONTROL CLERK AUDITING STMA Rapid Specimen Anatomical Collection Method Collection Time Receive d Time (Source) Location / / Volume Laterality Varies 05/23/2021 11:22 05/23/2021 (Nasopharynx) AM CONTROL CLERK AUDITING 11:25 AM CONTROL CLERK AUDITING Mario Alberto Shaw M.D. LAB MICROBIOLOGY - GENERAL O RDERABLES Performing Organization Address City/State/ZIP Code Phon e Number [facility] - [address] [place], [place] [address] [facility] [place] [address] [facility] [address] ECG 12 Lead (05/23/2021 11:17 AM CONTROL CLERK AUDITING) P athologist Signature Ventricular Rate 83 BPM MUSE ECG/Min MA Interval 176 ms MUSE QRSD Interval 88 ms MUSE QT Interval 374 ms MUSE QTC Interval 439 ms MUSE P [place] 80 degrees MUSE R [place] 23 degrees MUSE T Wave [place] 59 degrees MUSE Specimen Anatomical Collection Method Collection Time Receive d Time (Source) Location / / Volume Laterality 05/23/2021 11:17 05/23/2021 AM CONTROL CLERK AUDITING 11:22 AM CONTROL CLERK AUDITING Impressions MUSE - 05/23/2021 11:22 AM CONTROL CLERK AUDITING Normal sinus rhythm with sinus arrhythmia Normal ECG When compared with ECG of 27-NOV-2020 09 :59, No significant change was found Reviewed by SHERYL Galeano Narrative This result has an attachment that is no t available. Procedure Note Siva Garcia M.D., Ph.D. - 1 IMPRESSION: Normal sinus rhythm with sinus arrhythmi a Normal ECG When compared with ECG of 27-NOV-2020 09 :59, No significant change was found Reviewed by SHERYL Galeano Magda Redding M.D. ECG ORDERABLES Performing Organization Address [facility]/ZIP Code Phon e Number MUSE MUSE NA documented in this encounter Visit Diagnoses Diagnosis Dyspnea - Primary Anemia documented in this encounter Administered Medications Inactive Administered Medications - up to 3 most recent administrations Medication Order MAR Action Action Date Dose Rate Site ipratropium-albuteroL 0.5-2.5 mg/3 Given 05/23/2021 12:32 PM CONTROL CLERK AUDITING 3 mL mL nebulizer solution 3 mL (DUONEB) 3 mL, nebulization, Once, On Fri05/23/21 at 1229, For 1 dose documented in this encounter Active and Recently Administered Medications Times are shown in CONTROL CLERK AUDITING. Scheduled Medication Order 05/21/2021 05/22/2021 05/23/2021 ipratropium-albuteroL 0.5-2.5 mg/3 mL ne bulizer solution 3 mL (DUONEB) (COMPLETED) 1232 (Given - Provid er: Mary Puentes, R.R.T., L.R.T.) 3 mL, nebulization, Once, On Fri05/23/21 at 1229, For 1 dose documented in this encounter Additional Health Concerns Infection Onset Date Last Indicated Resolved Time COVID19 Pending 05/23/2021 05/23/2021 05/23/2021 11:53 AM CONTROL CLERK AUDITING Assessment Noted Time PHQ-9 Depression Total Score: 4 11/28/2020 10:17 AM CD T documented as of this encounter Care Teams Adult Education Instructor Relationship Specialty Start Date End Date Elsewhere, Pcp PCP - General Family Medicine 07/29/17 [facility] - Laboratory Medicine 04/12/20 [place] [id number] documented as of this encounter
--- OUTSIDE RECORDS SUMMARY | 2022-04-13 12:14 | XMS_ITS | Encounter Summary ---
:1955 Author Organization [facility] Address [address] [place] [address] Care Team Providers Name Role Phone Elsewhere, Pcp Primary Care Provider Unavailable Encounter Details Date Type Department Care Team Description 05/21/2021 Orders Only Division of Nephrology and Padmini Barry Hypertension in [facility], ASSOCIATE JAVA DEVELOPER, C.N.P ., [place] D.N.P. 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 [address] [place] [phone] 04/25/2022 Office Visit Otorhinolaryngology Dex Matta, RAMONA, C.N.P., M.S.N. [address] [place] [phone] 05/08/2022 Appointment Laboratory Medicine Angélica Granger P.A.-CDemetrius [address] [place] [phone] 05/08/2022 Clinical Admitting/Central Communication Scheduling 05/10/2022 Appointment Radiology Jeremie Rose M.D. [address] [place] [phone] 05/10/2022 Comprehensive Visit Orthopedic Surgery Warner Graves M.D. [address] [place] [phone] 05/22/2022 Appointment Laboratory Medicine Angélica Granger P.A.-C. [address] [place] [phone] 06/05/2022 Appointment Laboratory Medicine Angélica Granger P.A.-C. [address] [place] [phone] 06/19/2022 Appointment Laboratory Medicine Angélica Granger P.A.-C. [address] [place] [phone] 07/03/2022 Appointment Laboratory Medicine Angélica Granger P.A.-C. [address] [place] [phone] 07/17/2022 Appointment Laboratory Medicine Angélica Granger P.A.-C. [address] [place] [phone] 07/31/2022 Appointment Laboratory Medicine Angélica Granger P.A.-C. [address] [place] [phone] 08/14/2022 Appointment Laboratory Medicine Angélica Granger P.A.-C. [address] [place] [phone] 08/28/2022 Appointment Laboratory Medicine Angélica Granger P.A.-C. [address] [place] [phone] documented as of this encounter Visit Diagnoses Not on filedocumented in this encounter Additional Health Concerns Assessment Noted Time PHQ-9 Depression Total Score: 4 11/28/2020 10:17 AM CD T documented as of this encounter Care Teams Hospice Superintendent Relationship Specialty Start Date End Date Elsewhere, Pcp PCP - General Family Medicine 07/29/17 [facility] - Laboratory Medicine 04/12/[address] [address] documented as of this encounter
--- OUTSIDE RECORDS SUMMARY | 2022-04-13 12:14 | XMS_ITS | Encounter Summary ---
:1955 Author Organization [facility] Address [address] [place] [address] Care Team Providers Name Role Phone Elsewhere, Pcp Primary Care Provider Unavailable Encounter Details Date Type Department Care Team Description 03/13/2021 Clinical Communication Division of Nephrology Wellerri tter, and Hypertension in Padmini Hernandez APRNRio Medina, [place] C.N.P., D.N.P. 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 - 03/13/2021 2:22 PM CDT Recent Results (from the past 72 hour(s)) CBC without Differential Collection Time: 03/12/21 7:52 AM Result Value Hemoglobin 7.9 (L) Hematocrit 24.7 (L) Erythrocytes 2.60 (L) MCV 95.0 RBC Distrib Width 12.2 Platelet Count 198 Leukocytes 3.2 (L) Renal Function Panel Collection Time: 03/12/21 7:52 AM Result Value Potassium, P 3.7 Sodium, P 135 Chloride, P 99 Bicarbonate, P 24 Anion Gap, P 12 BUN (Blood Urea Nitrogen), P 63 (H) Creatinine, P 3.40 (H) eGFR-Black/ 21 (L) eGFR Non-Black/ 18 (L) Calcium, Total, P 8.7 (L) Glucose, P 125 Albumin, P 3.7 Phosphorus (Inorganic), P 4.3 Parathyroid Hormone (PTH) Collection Time: 03/12/21 7:52 AM Result Value Parathyroid Hormone (PTH), S 67 (H) Cystatin C with Estimated GFR, S Collection Time: 03/12/21 7:52 AM Result Value eGFR by Cystatin C 9 (L) Cystatin C, S 4.80 (H) Iron and Total Iron-Binding Capacity Collection Time: 03/12/21 7:52 AM Result Value Iron 72 Total Iron Binding Capacity 207 (L) Percent Saturation 35 Ferritin Collection Time: 03/12/21 7:52 AM Result Value Ferritin, S 389 Urinalysis with Microscopic: Urine, Midstream Collection Time: 03/12/21 8:04 AM Result Value Source Midstream Clarity Clear Color Yellow Blood Small (A) Nitrite Negative Leukocyte Esterase Negative Protein 100 (A) Glucose Negative Ketones, QI(U) Negative Bilirubin Negative pH 6.5 Specific [place] 1.010 Urobilinogen 0.2 White Blood Cells None Seen Red Blood Cells Occ-2 Dysmorphic Red Blood Cells <=25 Albumin, Random, Urine Collection Time: 03/12/21 8:04 AM Result Value Microalbumin 440.3 Creatinine 57 Albumin/Creatinine Ratio 772 (H) documented in this encounter Plan of Treatment Upcoming Encounters Date Type Specialty Care Team Description 04/24/2022 Appointment Laboratory Medicine Angélica Granger P.A.-C. [address] [place] [phone] 04/25/2022 Office Visit Otorhinolaryngology Dex Matta APRN, C.N.P., M.S.N. [address] [place] [phone] 05/08/2022 Appointment Laboratory Medicine Angélica Granger P.A.-C. [address] [place] [phone] 05/08/2022 Clinical Admitting/Central Communication Scheduling 05/10/2022 Appointment Radiology Jeremie Rose M.D. [address] [place] [phone] 05/10/2022 Comprehensive Visit Orthopedic Surgery Warner Graves M.D. [address] [place] [phone] 05/22/2022 Appointment Laboratory Medicine Angélica Granger P.A.-C. [address] [place] [phone] 06/05/2022 Appointment Laboratory Medicine Angélica Granger P.A.-C. [address] [place] [phone] 06/19/2022 Appointment Laboratory Medicine Angélica Granger P.A.-C. [address] [place] [phone] 07/03/2022 Appointment Laboratory Medicine Angélica Granger P.A.-C. [address] [place] [phone] 07/17/2022 Appointment Laboratory Medicine Angélica Granger P.A.-C. [address] [place] [phone] 07/31/2022 Appointment Laboratory Medicine Angélica Granger P.A.-C. [address] [place] [phone] 08/14/2022 Appointment Laboratory Medicine Angélica Granger P.A.-C. [address] [place] [phone] 08/28/2022 Appointment Laboratory Medicine Angélica Granger P.A.-C. [address] [place] [phone] documented as of this encounter Visit Diagnoses Not on filedocumented in this encounter Additional Health Concerns Assessment Noted Time PHQ-9 Depression Total Score: 4 11/28/2020 10:17 AM CD T documented as of this encounter Care Teams Catalyst Operator Gasoline Relationship Specialty Start Date End Date Elsewhere, Pcp PCP - General Family Medicine 07/29/17 [facility] - Laboratory Medicine 04/12/20 [place] [id number] documented as of this encounter
--- OUTSIDE RECORDS SUMMARY | 2022-04-13 12:14 | XMS_ITS | Encounter Summary ---
:1955 Author Organization [facility] Address [address] [place] [address] Care Team Providers Name Role Phone Elsewhere, Pcp Primary Care Provider Unavailable Encounter Details Date Type Department Care Team Description 05/01/2021 Hospital Encounter Department of Eve Garcia Of Chronic Renal Disease; Laboratory Medicine M, ORIENTAL MEDICINE PRACTITIONER, C.N.P., Mara surinder Kidney Disease Stage 5 Glomerular Filtration Rate Less Than 15 (HCC) in [facility] D.N.P. 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 Use 2 drops twice daily with ofloxacin drops x 14 days predniSONE (DELTASONE) Take 1 tablet (5 mg 90 tablet 3 06/2406/29/2021 5 mg tabletIndications: total) by mouth Transplant Liver (HCC), daily. Medication Therapy Field Nurse Not Anticoagulant sodium chloride USE 4 ML VIA 0 08/30/2020 021 (NEBUSAL) 3 % nebulizer NEBULIZER TWICE solution DAILY Spiriva Respimat 2.5 INHALE 2 PUFFS BY 4 g 0 01/09/20 21 07/26/2021 mcg/actuation inhaler MOUTH DAILY tacrolimus (PROGRAF) Take 2 capsules (1 360 capsule 3 202007/16/2021 0.5 mg mg total) by mouth 2 capsuleIndications: (two) times a day. Transplant Liver (HCC), Medication Therapy Field Nurse Not Anticoagulant torsemide (DEMADEX) 10 Take 3 [...] Laboratory Medicine Angélica Granger P.A.-C. [address] [place] [address] 04/25/2022 Office Visit Otorhinolaryngology Dex Matta APRN, C.N.P., M.S.N. [address] [place] [phone] 05/08/2022 Appointment Laboratory Medicine Angélica Granger P.A.-C. [address] [place] [phone] 05/08/2022 Clinical Admitting/Central Communication Scheduling 05/10/2022 Appointment Radiology Jeremie Rose M.D. [address] [place] [phone] 05/10/2022 Comprehensive Visit Orthopedic Surgery Warner Graves M.D. [address] [place] [address] [phone] 05/22/2022 Appointment Laboratory Medicine Angélica Granger P.A.-C. [address] [place] [phone] 06/05/2022 Appointment Laboratory Medicine Angélica Granger P.A.-C. [address] [place] [phone] 06/19/2022 Appointment Laboratory Medicine Angélica Granger P.A.-C. [address] [place] [phone] 07/03/2022 Appointment Laboratory Medicine Angélica Granger P.A.-C. [address] [place] [phone] 07/17/2022 Appointment Laboratory Medicine Angélica Granger P.A.-C. [address] [place] [phone] 07/31/2022 Appointment Laboratory Medicine Angélica Granger P.A.-C. [address] [place] [phone] 08/14/2022 Appointment Laboratory Medicine Anéglica Granger P.A.-C. [address] [place] [phone] 08/28/2022 Appointment Laboratory Medicine Angélica Granger P.A.-C. [address] [place] [phone] documented as of this encounter Procedures Procedure Name Priority Date/Time Associated Diagnosis Comme nts CYSTATIN C WITH Routine 05/01/2021 10:24 AM Anemia Of Chronic Results for this EGFR CLINICAL SPECIALIST Renal Disease procedure are in Chronic Kidney the results Disease Stage 5 section. Glomerular Filtration Rate Less Than 15 (HCC) IRON AND TOT Routine 05/01/2021 10:24 AM Anemia Of Chronic Res ults for this IRON-BINDING CLINICAL SPECIALIST Renal Disease procedure are in CAPACITY, S/P Chronic Kidney the results Disease Stage 5 section. Glomerular Filtration Rate Less Than 15 (HCC) RETICULOCYTES, B Routine 05/01/2021 10:24 AM Anemia Of Chronic Results for this CLINICAL SPECIALIST Renal Disease procedure are in Chronic Kidney the results Disease Stage 5 section. Glomerular Filtration Rate Less Than 15 (HCC) FOLATE, S Routine 05/01/2021 10:24 AM Anemia Of Chronic Res ults for this CLINICAL SPECIALIST Renal Disease procedure are in Chronic Kidney the results Disease Stage 5 section. Glomerular Filtration Rate Less Than 15 (HCC) FERRITIN, S Routine 05/01/2021 10:24 AM Anemia Of Chronic Res ults for this CLINICAL SPECIALIST Renal Disease procedure are in Chronic Kidney the results Disease Stage 5 section. Glomerular Filtration Rate Less Than 15 (HCC) BASIC METABOLIC Routine 05/01/2021 10:24 AM Anemia Of Chronic Results for this PANEL, S/P CLINICAL SPECIALIST Renal Disease procedure are in Chronic Kidney the results Disease Stage 5 section. Glomerular Filtration Rate Less Than 15 (HCC) documented in this encounter Results Folate (05/01/2021 10:24 AM CLINICAL SPECIALIST) P athologist Signature Folate, S 11.0 >=4.0 mcg/L 05/01/2021 3:41 ECLR PM CLINICAL SPECIALIST Comment: Biotin has been identified by the [facility] as a potential interfering substance. ??Higher concentr ations of biotin may be found in multivitamins, hair/nail supple ments, and workout supplements. ??If the result does not [facility] clinical observations, repeat testing after patient refrains fr om the use of supplements for at least 12 hours. Specimen Anatomical Collection Method Collection Time Receive d Time (Source) Location / / Volume Laterality Blood (Blood, 05/01/2021 10:24 05/01/2021 2:57 Venous) AM CLINICAL SPECIALIST PM CLINICAL SPECIALIST Eve Garcia APRN, C.N.P., D.N.P. LAB BLOOD ADD- ON Performing Organization Address City/State/ZIP Code Phon e Number [facility]- [address] [place] [phone] [facility] [place] [address] System in [address] (ABNORMAL) Basic Metabolic Panel (05/01/2021 10:24 AM CLINICAL SPECIALIST) Analysis Performed At Patho logist Time Signature Potassium, P 3.9 3.6 - 5.2 05/01/2021 [facility] mmol/L 10:45 AM CLINICAL SPECIALIST Sodium, P 133 (L) 135 - 145 05/01/2021 [facility] mmol/L 10:45 AM CLINICAL SPECIALIST Chloride, P 95 (L) 98 - 107 05/01/2021 [facility] mmol/L 10:45 AM CLINICAL SPECIALIST Bicarbonate, P 22 22 - 29 05/01/2021 [facility] mmol/L 10:45 AM CLINICAL SPECIALIST Anion Gap, P 16 (H) 7 - 15 05/01/2021 [facility] 10:45 AM CLINICAL SPECIALIST BUN (Blood Urea 66 (H) 8 - 24 05/01/2021 [facility] Nitrogen), P mg/dL 10:45 AM CLINICAL SPECIALIST Creatinine 3.93 (H) 0.74 - 05/01/2021 [facility] 1.35 mg/dL 10:45 AM CLINICAL SPECIALIST eGFR-Black/Afri 17 (L) >=60 05/01/2021 [facility] can [place] mL/min/BSA 10:45 AM CLINICAL SPECIALIST Comment: ----ADDITIONAL INFORMATION---- Estimated GFR calculated using the 2009 CKD_EPI creatinine equation. eGFR Non-Black/ <15 (L) >=60 mL/min/BSA 05/01/2021 10:45 AM CNFL [place] CLINICAL SPECIALIST Comment: ----ADDITIONAL INFORMATION---- Estimated GFR calculated using the 2009 CKD_EPI creatinine equation. Calcium, Total, P 8.7 (L) 8.8 - 10.2 mg/dL 05/01/2021 10:4 5 AM CLINICAL SPECIALIST CNFL Glucose, P 144 (H) 70 - 140 mg/dL 05/01/2021 10:45 AM CLINICAL SPECIALIST CNFL Specimen Anatomical Collection Method Collection Time Receive d Time (Source) Location / / Volume Laterality Blood (Blood, 05/01/2021 10:24 05/01/2021 Venous) AM CLINICAL SPECIALIST 10:27 AM CLINICAL SPECIALIST Eve Garcia APRN, C.N.P., D.N.P. LAB BLOOD ADD- ON Performing Organization Address City/State/ZIP Code Phon e Number [phone] [place] [address] [place] [address] System [address] (ABNORMAL) Cystatin C with Estimated GFR, S (05/01/2021 10:24 AM CLINICAL SPECIALIST) athologist Signature eGFR by 7 (L) >60 05/02/2021 DTL Cystatin C mL/min/BSA 7:38 AM CLINICAL SPECIALIST Comment: Estimated GFR calculated using the CKD-E [...] lower with the new assay. Cystatin C 5.74 (H) 0.67 - 1.21 mg/L 05/02/2021 7:38 AM CLINICAL SPECIALIST DTL Specimen Anatomical Collection Method Collection Time Receive d Time (Source) Location / / Volume Laterality Blood (Blood, 05/01/2021 10:24 05/02/2021 7:20 Venous) AM CLINICAL SPECIALIST AM CLINICAL SPECIALIST Arley Velasquez APRN.N.P., D.N.P. LAB BLOOD ADD- ON Performing Organization Address City/State/ZIP Code Phon e Number [facility] 200 [place], [place] [address] [facility] [place] [address] [facility] 200 [facility] Ferritin (05/01/2021 10:24 AM CLINICAL SPECIALIST) athologist Signature Ferritin, S 345 31 - 409 05/01/2021 [facility] mcg/L 1:35 PM CLINICAL SPECIALIST Comment: Biotin has been identified by the [facility] as a potential interfering substance. ??Higher concentr ations of biotin may be found in multivitamins, hair/nail supple ments, and workout supplements. ??If the result does not ma [facility] clinical observations, repeat testing after patient refrains fr om the use of supplements for at least 12 hours. Specimen Anatomical Collection Method Collection Time Receive d Time (Source) Location / / Volume Laterality Blood (Blood, 05/01/2021 10:24 05/01/2021 Venous) AM CLINICAL SPECIALIST 12:49 PM CLINICAL SPECIALIST Arley Velasquez APRN.N.P., D.N.P. LAB BLOOD ADD- ON Performing Organization Address City/State/[facility] Code Phon e Number [facility]- [address] [place], [place] [address] [place] [address] System in [place] [address] (ABNORMAL) Iron and Total Iron-Binding Capacity (05/01/2021 10:24 AM CLINICAL SPECIALIST) P athologist Signature Iron 48 (L) 50 - 150 05/01/2021 [facility] mcg/dL 1:26 PM CLINICAL SPECIALIST Total Iron 215 (L) 250 - 400 05/01/2021 [facility] Binding mcg/dL 1:26 PM CLINICAL SPECIALIST Capacity Percent 22 14 - 50 % 05/01/2021 [facility] Saturation 1:26 PM CLINICAL SPECIALIST Specimen Anatomical Collection Method Collection Time Receive d Time (Source) Location / / Volume Laterality Blood (Blood, 05/01/2021 10:24 05/01/2021 Venous) AM CLINICAL SPECIALIST 12:49 PM CLINICAL SPECIALIST Eve Garcia APRN, C.N.P., D.N.P. LAB BLOOD ADD- ON Performing Organization Address City/State/ZIP Code Phon e Number [facility]- [address] [place], [place] [address] [place] [address] System in [place] [address] [place] (ABNORMAL) Reticulocytes (05/01/2021 10:24 AM CLINICAL SPECIALIST) [facility] gist Method Time Signature Reticulocytes, B 3.41 (H) 0.60 - 05/01/2021 [facility] 2.71 % 1:15 PM CLINICAL SPECIALIST Absolute 91.0 30.4 - 05/01/2021 [facility] Reticulocyte 110.9 1:15 PM CLINICAL SPECIALIST x10(9)/L Specimen Anatomical Collection Method Collection Time Receive d Time (Source) Location / / Volume Laterality Blood (Blood, 05/01/2021 10:24 05/01/2021 Venous) AM CLINICAL SPECIALIST 12:49 PM CLINICAL SPECIALIST Eve Garcia APRN, C.N.P., D.N.P. LAB BLOOD ADD- ON Performing Organization Address City/State/ZIP Code Phon e Number [facility]- [address] [place], [place] [address] [place] [address] System in [place] [address] [place] documented in this encounter Visit Diagnoses Diagnosis Anemia Of Chronic Renal Disease Chronic Kidney Disease Stage 5 Glomerula r Filtration Rate Less Than 15 (HCC) documented in this encounter Additional Health Concerns Assessment Noted Time PHQ-9 Depression Total Score: 4 11/28/2020 10:17 AM CD T documented as of this encounter Care Teams Instrumentation Technologist Relationship Specialty Start Date End Date Elsewhere, Pcp PCP - General Family Medicine 07/29/17 [facility] - Laboratory Medicine 04/12/20 [place] [id number] documented as of this encounter
--- OUTSIDE RECORDS SUMMARY | 2022-04-13 12:14 | XMS_ITS | Encounter Summary ---
:1955 Author Organization [facility] Address [address] [place] [address] Care Team Providers Name Role Phone Elsewhere, Pcp Primary Care Provider Unavailable Encounter Details Date Type Department Care Team Description 05/01/2021 Hospital Encounter Department of Eve Garcia Of Chronic Renal Disease; Laboratory Medicine M, CAR DUMPER OPERATOR HELPER, C.N.P., Mara surinder Kidney Disease Stage 5 Glomerular Filtration Rate Less Than 15 (HCC) in [facility] D.N.P. 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 Medication Therapy Fci Not Anticoagulant sodium chloride USE 4 ML VIA 0 08/30/2020 021 (NEBUSAL) 3 % nebulizer NEBULIZER TWICE solution DAILY Spiriva Respimat 2.5 INHALE 2 PUFFS BY 4 g 0 01/09/20 21 07/26/2021 mcg/actuation inhaler MOUTH DAILY tacrolimus (PROGRAF) Take 2 capsules (1 360 capsule 3 202007/16/2021 0.5 mg mg total) by mouth 2 capsuleIndications: (two) times a day. Transplant Liver (HCC), Medication Therapy Jet Engine Mechanic Not Anticoagulant torsemide (DEMADEX) 10 Take 3 [...] Laboratory Medicine Angélica Granger P.A.-C. [address] [place] [address] 04/25/2022 Office Visit Otorhinolaryngology Dex Matta APRN, C.N.P., M.S.N. [address] [place] [phone] 05/08/2022 Appointment Laboratory Medicine Angélica Granger P.A.-C. [address] [place] [phone] 05/08/2022 Clinical Admitting/Central Communication Scheduling 05/10/2022 Appointment Radiology Jeremie Rose M.D. [address] [place] [phone] 05/10/2022 Comprehensive Visit Orthopedic Surgery Warner Graves M.D. [address] [place] [address] [phone] 05/22/2022 Appointment Laboratory Medicine Angélica Granger P.A.-C. [address] [place] [phone] 06/05/2022 Appointment Laboratory Medicine Angélica Granger P.A.-C. [address] [place] [phone] 06/19/2022 Appointment Laboratory Medicine Angélica Granger P.A.-C. [address] [place] [phone] 07/03/2022 Appointment Laboratory Medicine Angélica Granger P.A.-C. [address] [place] [phone] 07/17/2022 Appointment Laboratory Medicine Angélica Granger P.A.-C. [address] [place] [phone] 07/31/2022 Appointment Laboratory Medicine Angélica Granger P.A.-C. [address] [place] [phone] 08/14/2022 Appointment Laboratory Medicine Angélica Granger P.A.-C. [address] [place] [phone] 08/28/2022 Appointment Laboratory Medicine Angélica Granger P.A.-C. [address] [place] [phone] documented as of this encounter Procedures Procedure Name Priority Date/Time Associated Diagnosis Comme nts HEMOQUANT, F Routine 05/01/2021 12:00 PM Anemia Of Chronic Res ults for this IMAGING 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 Renal Disease procedure are in the Chronic Kidney results secti on. Disease Stage 5 Glomerular Filtration Rate Less Than 15 (HCC) documented in this encounter Results HemoQuant, Feces (05/01/2021 12:00 PM IMAGING 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) P athologist Signature Hemoglobin, 1.5 <=2 mg Hb/g 05/02/2021 DTL Fecal 3:10 PM IMAGING 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 Comment: ----ADDITIONAL INFORMATION---- This test was developed and its performa nce characteristics determined by [facility] in a manner consistent with CLIA requirements. This test has not been cleared or approved by the U.S. Mer d and Drug Administration. Specimen Anatomical Collection Method Collection Time Receive d Time (Source) Location / / Volume Laterality Stool (Stool) 05/01/2021 12:00 05/02/2021 7:58 PM IMAGING 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 AM IMAGING 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 Eve Garcia APRN, C.N.P., D.N.P. LAB BODY FLUID S AND STOOLS ORDERABLES Performing Organization Address City/State/ZIP Code Phon e Number [facility] - [address] [place], [place] [address] [facility] [place] [address] [facility] [address] documented in this encounter Visit Diagnoses Diagnosis Anemia Of Chronic Renal Disease Chronic Kidney Disease Stage 5 Glomerula r Filtration Rate Less Than 15 (HCC) documented in this encounter Additional Health Concerns Assessment Noted Time PHQ-9 Depression Total Score: 4 11/28/2020 10:17 AM CD T documented as of this encounter Care Teams Registered Sales Assistant Relationship Specialty Start Date End Date Elsewhere, Pcp PCP - General Family Medicine 07/29/17 [facility] - Laboratory Medicine 04/12/[address] [phone] documented as of this encounter
--- OUTSIDE RECORDS SUMMARY | 2022-04-13 12:14 | XMS_ITS | Encounter Summary ---
:1955 Author Organization [facility] Address [address] [place] [address] Care Team Providers Name Role Phone Elsewhere, Pcp Primary Care Provider Unavailable Encounter Details Date Type Department Care Team Description 03/22/2021 Hospital Encounter Department of Willis Herrera Pret ransplant Recipient Evaluation Exam; Laboratory Medicine MDemetriusDDemetrius Chronic Kidney Disease Stage 4 Glomerula r Filtration Rate 15-29 (HCC) in [place] [phone] [address] [phone] [place], [place] (Work) [id number] Social History Tobacco Use Types Packs/Day [...] at Date Recorded Male 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 Medication Therapy Group Home Not Anticoagulant sodium chloride USE 4 ML VIA 0 08/30/2020 021 (NEBUSAL) 3 % nebulizer NEBULIZER TWICE solution DAILY Spiriva Respimat 2.5 INHALE 2 PUFFS BY 4 g 0 01/09/20 21 07/26/2021 mcg/actuation inhaler MOUTH DAILY tacrolimus (PROGRAF) Take 2 capsules (1 360 capsule 3 202007/16/2021 0.5 mg mg total) by mouth 2 capsuleIndications: (two) times a day. Transplant Liver (HCC), Medication Therapy Nurse Advocate Not Anticoagulant torsemide (DEMADEX) 10 Take 3 [...] Laboratory Medicine Angélica Granger P.A.-C. [address] [place] [address] 04/25/2022 Office Visit Otorhinolaryngology Dex Matta APRN CDemetriusNDemetriusPDemetrius, M.S.N. [address] [place] [phone] 05/08/2022 Appointment Laboratory Medicine Angélica Granger P.A.-C. [address] [place] [phone] 05/08/2022 Clinical Admitting/Central Communication Scheduling 05/10/2022 Appointment Radiology Jeremie Rose M.D. [address] [place] [phone] 05/10/2022 Comprehensive Visit Orthopedic Surgery Warner Graves M.D. [address] [place] [phone] 05/22/2022 Appointment Laboratory Medicine Angélica Granger P.A.-C. [address] [place] [phone] 06/05/2022 Appointment Laboratory Medicine Angélica Granger P.A.-C. [address] [place] [phone] 06/19/2022 Appointment Laboratory Medicine Angélica Granger P.A.-C. [address] [place] [phone] 07/03/2022 Appointment Laboratory Medicine Angélica Granger P.A.-C. [address] [place] [phone] 07/17/2022 Appointment Laboratory Medicine Angélica Granger P.A.-C. [address] [place] [phone] 07/31/2022 Appointment Laboratory Medicine Angélica Granger P.A.-C. [address] [place] [phone] 08/14/2022 Appointment Laboratory Medicine Angélica Granger P.A.-C. [address] [place] [phone] 08/28/2022 Appointment Laboratory Medicine Angélica Granger P.A.-C. [address] [place] [phone] Scheduled Orders Name Type Priority Associated Diagnoses Order S chedule Kit Collection Lab Routine Pretransplant Recipient On ce for 1 Occurrences Evaluation Exam starting 03/22/2021 until Chronic Kidney Disease Stage 03/22/2021 4 Glomerular Filtration Rate 15-29 (HCC) documented as of this encounter Visit Diagnoses Diagnosis Pretransplant Recipient Evaluation Exam Chronic Kidney Disease Stage 4 Glomerula r Filtration Rate 15-29 (HCC) documented in this encounter Additional Health Concerns Assessment Noted Time PHQ-9 Depression Total Score: 4 11/28/2020 10:17 AM CD T documented as of this encounter Care Teams Dog Breeder Relationship Specialty Start Date End Date Elsewhere, Pcp PCP - General Family Medicine 07/29/17 [facility] - Laboratory Medicine 04/12/[address] [phone] documented as of this encounter
--- OUTSIDE RECORDS SUMMARY | 2022-04-13 12:14 | XMS_ITS | Encounter Summary ---
:1955 Author Organization [facility] Address [address] [place] [address] Care Team Providers Name Role Phone Elsewhere, Pcp Primary Care Provider Unavailable Reason for Visit Appointment Request (Routine) - Closed Specialty Diagnoses / Procedures Referred By Contact Refer red To Contact Nephrology and Hypertension Referral ID Status Reason Start Date Expiration Date Visits Requ ested Visits Authorized [id number] Closed 03/07/2021 03/07/2022 1 1 Encounter Details Date Type Department Care Team Description 03/14/2021 External Division of [facility] Chronic Kidney Disease Stage 4 Glomerular Filtration Rate 15-29 (HCC) (Primary Dx); Outreach Nephrology and Padmini, Hypertension And Chronic Kidney Disease Stage 4 (HCC); Hypertension in [employer] [facility] [employer] [facility], Anemia; [place], [place] C.N.P., Hyperparathyroidism Secondar y (HCC) [address] [place] [phone] Social History Tobacco Use Types Packs/Day Years [...] More than 4 times per year 12/15/2021 baptism services? 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 - 03/14/2021 1:00 PM CDT Subjective: Chief Complaint/Reason for Visit [place] CKD visit History of Present Illness: Mr. Singh is by our a 65 y.o. male who presents for ongoing evaluation of chronic kidney disease. He was last seen in the chronic kidney disease clinic on 12/28/20. He returns today reporting he feels quite fatigued stating I feel like I lost my whole summer. He was started on Aranesp 4 months ago but his Hgb continues to fall. He states he is receiving the Aranesp once a month. He does report somemorning nausea but relates this to his post nasal drip that has been ongoing for over a year. He is drinking about 2L of water daily and he is not following any other specific diet. He does state he drinks protein drinks to get his protein up. Taking in about 60 gm a day. He endorses some dyspnea with exertion. Mr. Singh has a history of chronic kidney disease secondary to hypertension and a history of left renal artery stenting for renal artery stenosis. Review of Systems Constitutional: Positive for fatigue. Negative for loss of appetite. Respiratory: Positive for dyspnea. Cardiovascular: Positive for swelling in the legs or feet (Mild Left leg (past injury) and some pedal swelling that improves over night.). Negative for chest pain, pressure or tightness. The following systems were negative: GI, Objective: Constitutional Comments: Thin appearing Cardiovascular Rate and Rhythm: Normal rate and regular rhythm. Heart sounds: Normal heart sounds. Pulmonary Effort: Pulmonary effort is normal. Breath sounds: Rales present. Musculoskeletal Right lower leg: No edema. Left lower leg: No edema. Skin General: Skin is warm and dry. Neurological Mental Status: He is alert and oriented to person, place, and time. Psychiatric Mood and Affect: Mood normal. Behavior: Behavior normal. Thought Content: Thought content normal. Judgment: Judgment normal. Vitals: 03/14/21 1446 BP: 112/58 Pulse: 71 Assessment/Plan: #1 Chronic kidney Disease (CKD) stage 4-5, secondary to Hypertension and left renal artery stenosis status post stenting GFR is 18 mL/min by creatinine and 9 ml/min by cystatin C. I think his Cystatin C is likely more accurate given his lack of muscle mass. BUN is 63 mg/dL. He does not display signs of uremia today. Signs and symptoms of uremia reviewed today. #2 CKD treatment options Kidney Transplant:Currently active. He does have a couple people he will be sending for eval to donate. Dialysis Plan: interested in hemodialysis. Dialysis access: Although his renal function is low he does have a couple people who will be evaluated to donate a kidney. We will wait for now on placement of AVF. If his repeat labs in one month areworse consider referral for AVF. Hepatitis B Status: immune #3 Hypertension Blood pressure satisfactory. No changes made. #4CKD Anemia Hgb below goal of 10 gm/Dl. He is iron replete. Will increase his Aranesp to 40 mcg 2 times a month. #5 Secondary hyperparathyroidism Calcium: At goal for CKD Phosphorus: At goal Phosphate Binder: No needed Parathyroid Hormone: At goal for CKD stage 4-5 Vitamin D Therapy: Already on #6 Metabolic acidosis. Bicarbonate is satisfactory. He does not need bicarbonate therapy at this time. Follow-up: One month labs at [place] and 3 months CKD in [place]. documented in this encounter Plan of Treatment Upcoming Encounters Date Type Specialty Care Team Description 04/24/2022 Appointment Laboratory Medicine Angélica Granger P.A.-C. [address] [place] [phone] 04/25/2022 Office Visit Otorhinolaryngology Dex Matta APRN, C.N.P., M.S.N. [address] [place] [phone] 05/08/2022 Appointment Laboratory Medicine Angélica Granger P.A.-C. [address] [place] [phone] 05/08/2022 Clinical Admitting/Central Communication Scheduling 05/10/2022 Appointment Radiology Jeremie Rose M.D. [address] [place] [phone] 05/10/2022 Comprehensive Visit Orthopedic Surgery Warner Graves M.D. [address] [place] [phone] 05/22/2022 Appointment Laboratory Medicine Angélica Granger P.A.-C. [address] [place] [phone] 06/05/2022 Appointment Laboratory Medicine Angélica Granger P.A.-C. [address] [place] [phone] 06/19/2022 Appointment Laboratory Medicine Angélica Granger P.A.-C. [address] [place] [phone] 07/03/2022 Appointment Laboratory Medicine Angélica Granger P.A.-C. [address] [place] [phone] 07/17/2022 Appointment Laboratory Medicine Angélica Granger P.A.-C. [address] [place] [phone] 07/31/2022 Appointment Laboratory Medicine Angélica Granger P.A.-C. [address] [place] [phone] 08/14/2022 Appointment Laboratory Medicine Angélica Granger P.A.-C. [address] [place] [phone] 08/28/2022 Appointment Laboratory Medicine Angélica Granger P.A.-C. [address] [place] [phone] documented as of this encounter Results (ABNORMAL) Albumin, Random, Urine (05/23/2021 8:34 AM COUNTERSINKER BALANCE SCREW HOLE) [facility] Method Time Signature Microalbumin 357.9 mg/L 05/23/2021 CNFL 10:00 AM COUNTERSINKER [employer] SCRE[employer]LE Creatinine 78 mg/dL 05/23/2021 CNFL 10:00 AM COUNTERSINKER [employer] SCRE[employer]LE Albumin/Creatinin 459 (H) <17 mg/g 05/23/2021 CNFL e Ratio 10:00 AM COUNTERSINKER [employer] SCRE[employer]LE Specimen Anatomical Collection Method Collection Time Receive d Time (Source) Location / / Volume Laterality Urine (Urine, 05/23/2021 8:34 AM 05/23/20 9:39 Clean Catch) COUNTERSINKER [employer] SCREW HOLE AM COUNTERSINKER BALANCE SCREW HOLE Janette Banks APRNNJuan Miguel, D.N.P. LAB URINE OR DERABLES Performing Organization Address City/State/ZIP Code Phon e Number [address] [address] [facility] [place] [address] System [address] (ABNORMAL) Urinalysis with Microscopic: Urine, Midstream (05/23/2021 8:34 AM COUNTERSINKER BALANCE SCREW HOLE) Analysis Performed At Patho logist Time Signature Source Urine, Urine, 05/23/2021 CNFL Midstream 9:39 AM COUNTERSINKER [employer] SCRE[employer]LE Clarity Clear Clear 05/23/2021 CNFL 9:50 AM COUNTERSINKER [employer] SCREW [employer]LE Color Yellow 05/23/2021 CNFL 9:50 AM COUNTERSINKER [employer] SCREW HOLE Comment: ----REFERENCE VALUE---- Colorless Yellow Bhakti Blood Small (A) Negative 05/23/2021 9:50 AM COUNTERSINKER [employer]CRE[employer]LE CN[facility] Nitrite Negative Negative 05/23/2021 9:50 AM COUNTERSINKER [employer] SCRE[employer]LE CN[facility] Leukocyte Esterase Negative Negative 05/23/2021 9:50 AM CS T CNFL Protein 100 (A) mg/dL 05/23/2021 9:50 AM COUNTERSINKER [employer] SCREW [employer]LE CNFL Comment: ----REFERENCE VALUE---- Negative Trace Glucose Negative Negative mg/dL 05/23/2021 9:50 AM COUNTERSINKER BALANCE SCREW [employer]LE CN FL Ketones, QI(U) Negative Negative mg/dL 05/23/2021 9:[address] [facility] Bilirubin Negative Negative 05/23/2021 9:50 AM COUNTERSINKER [employer] SCREW [employer]LE CNFL pH 6.5 5.0 - 8.0 05/23/2021 9:50 AM COUNTERSINKER BALANCE SCREW HOLE CN[facility] Specific [employer] [place] 1.015 1.001 - 1.035 05/23/2021 9:50 AM COUNTERSINKER [employer]ANCE SCREW [employer]LE CNFL Urobilinogen 0.2 0.2 - 1.0 mg/dL 05/23/2021 9:50 AM CS T [facility] White Blood Cells Occ-3 /hpf 05/23/2021 10:17 AM CS T CNFL Comment: ----REFERENCE VALUE---- Males: 0-3 Females: 0-10 Unknown: 0-10 Red Blood Cells Occ-2 0 - 2 /hpf 05/23/2021 10:17 AM COUNTERSINKER BALANCE SCREW HOLE CNFL Specimen Anatomical Collection Method Collection Time Receive d Time (Source) Location / / Volume Laterality Urine (Urine, 05/23/2021 8:34 AM 05/23/20 9:39 Midstream) COUNTERSINKER BALANCE SCREW HOLE AM COUNTERSINKER BALANCE SCREW HOLE Padmini Barry APRN, C.N.P., D.N.P. LAB URINE OR DERABLES Performing Organization Address City/[facility] Phon e Number [facility]- [address] [place] [address] [place] [address] System [address] Parathyroid Hormone (PTH) (05/23/2021 8:34 AM COUNTERSINKER BALANCE SCREW HOLE) athologist Signature Parathyroid 53 15 - 65 05/23/2021 [facility] Hormone (PTH), S pg/mL 1:21 PM COUNTERSINKER BALANCE SCREW HOLE Comment: Biotin has been identified by the [facility] as a potential interfering substance. ??Higher concentr ations of biotin may be found in multivitamins, hair/nail supple ments, and workout supplements. ??If the result does not [facility] clinical observations, repeat testing after patient refrains fr om the use of supplements for at least 12 hours. Specimen Anatomical Collection Method Collection Time Receive d Time (Source) Location / / Volume Laterality Blood (Blood, 05/23/2021 8:34 AM 05/23/20 Venous) COUNTERSINKER [employer] SCREW HOLE 12:48 PM COUNTERSINKER BALANCE SCREW HOLE Padmini Barry APRN, C.N.P., D.N.P. LAB BLOOD AD D-ON Performing Organization Address City/State/ZIP Code Phon e Number [facility]- [address] [place] [address] [facility] [place] [address] System in [place] [facility] [address] (ABNORMAL) Renal Function Panel (05/23/2021 8:34 AM COUNTERSINKER BALANCE SCREW HOLE) Analysis Performed At Patho logist Time Signature Potassium, P 4.1 3.6 - 5.2 05/23/2021 CNFL mmol/L 9:01 AM COUNTERSINKER BALANCE SCREW HOLE Sodium, P 128 (L) 135 - 145 05/23/2021 [facility] mmol/L 9:01 AM COUNTERSINKER BALANCE SCREW HOLE Chloride, P 94 (L) 98 - 107 05/23/2021 [facility] mmol/L 9:01 AM COUNTERSINKER BALANCE SCREW HOLE Bicarbonate, P 21 (L) 22 - 29 05/23/2021 [facility] mmol/L 9:01 AM COUNTERSINKER BALANCE SCREW HOLE Anion Gap, P 13 7 - 15 05/23/2021 CNFL 9:01 AM COUNTERSINKER [employer] SCRE[employer]LE BUN (Blood Urea 55 (H) 8 - 24 05/23/2021 [facility] Nitrogen), P mg/dL 9:01 AM COUNTERSINKER BALANCE SCREW HOLE Creatinine 4.25 (H) 0.74 - 05/23/2021 CNFL 1.35 mg/dL 9:01 AM COUNTERSINKER BALANCE SCREW HOLE eGFR-Black/Afri 16 (L) >=60 05/23/2021 CN[facility] can Eritrean mL/min/BSA 9:01 AM COUNTERSINKER BALANCE SCREW HOLE Comment: ----ADDITIONAL INFORMATION---- Estimated GFR calculated using the 2009 CKD_EPI creatinine equation. eGFR Non-Black/ <15 (L) >=60 mL/min/BSA 05/23/2021 9:01 AM COUNTERSINKER BALANCE SCREW HOLE [facility] [place]an Comment: ----ADDITIONAL INFORMATION---- Estimated GFR calculated using the 2009 CKD_EPI creatinine equation. Calcium, Total, P 8.3 (L) 8.8 - 10.2 mg/dL 05/23/2021 9:01 AM COUNTERSINKER BALANCE SCREW HOLE CNFL Glucose, P 119 70 - 140 mg/dL 05/23/2021 9:01 AM COUNTERSINKER BALANCE SCREW HOLE C NFL Albumin, P 3.6 3.5 - 5.0 g/dL 05/23/2021 9:01 AM COUNTERSINKER BALANCE SCREW HOLE C NFL Phosphorus (Inorganic), P 3.8 2.5 - 4.5 mg/dL 05/23/20 9:01 AM COUNTERSINKER BALANCE SCREW HOLE CNFL Specimen Anatomical Collection Method Collection Time Receive d Time (Source) Location / / Volume Laterality Blood (Blood, 05/23/2021 8:34 AM 05/23/20 8:37 Venous) COUNTERSINKER BALANCE SCREW HOLE AM COUNTERSINKER BALANCE SCREW HOLE Padmini Barry APRN, C.N.P., D.N.P. LAB BLOOD AD D-ON Performing Organization Address City/State/ZIP Code Phon e Number [facility]- [address] [place] [phone] [place] [address] [place] [address] System [address] (ABNORMAL) CBC without Differential (05/23/2021 8:34 AM COUNTERSINKER BALANCE SCREW HOLE) [facility] gist Method Time Signature Hemoglobin 6.7 (L) 13.2 - 05/23/2021 CNFL 16.6 g/dL 8:47 AM COUNTERSINKER BALANCE SCREW HOLE Hematocrit 22.2 (L) 38.3 - 05/23/2021 CNFL 48.6 % 8:47 AM COUNTERSINKER BALANCE SCREW HOLE Erythrocytes 2.32 (L) 4.35 - 05/23/2021 CNFL 5.65 8:47 AM COUNTERSINKER BALANCE SCREW HOLE x10(12)/L MCV 95.7 78.2 - 05/23/2021 CNFL 97.9 fL 8:47 AM COUNTERSINKER BALANCE SCREW HOLE RBC Distrib Width 13.4 11.8 - 05/23/2021 CNFL 14.5 % 8:47 AM COUNTERSINKER [employer]ANCE SCREW HOLE Platelet Count 200 135 - 317 05/23/2021 CNFL x10(9)/L 8:47 AM COUNTERSINKER BALANCE SCREW HOLE Leukocytes 3.4 3.4 - 9.6 05/23/2021 CNFL x10(9)/L 8:47 AM COUNTERSINKER BALANCE SCREW HOLE Specimen Anatomical Collection Method Collection Time Receive d Time (Source) Location / / Volume Laterality Blood (Blood, 05/23/2021 8:34 AM 05/23/20 21 8:37 Venous) COUNTERSINKER BALANCE SCREW HOLE AM COUNTERSINKER BALANCE SCREW HOLE Padmini Barry APRN C.N.P., D.N.P. LAB BLOOD AD D-ON Performing Organization Address City/State/ZIP Code Phon e Number [facility]- [address] [place] [address] [place] [address] [facility] [place] [address] System in [place] [address] [address] documented in this encounter Visit Diagnoses Diagnosis Chronic Kidney Disease Stage 4 Glomerula r Filtration Rate 15-29 (HCC) - Primary Hypertension And Chronic Kidney Disease Stage 4 (HCC) Anemia Hyperparathyroidism Secondary (HCC) documented in this encounter Additional Health Concerns Assessment Noted Time PHQ-9 Depression Total Score: 4 11/28/2020 10:17 AM CD T documented as of this encounter Care Teams Foreign Language Professor Relationship Specialty Start Date End Date Elsewhere, Pcp PCP - General Family Medicine 07/29/17 [facility] - Laboratory Medicine 04/12/20 [place] [phone] documented as of this encounter
--- OUTSIDE RECORDS SUMMARY | 2022-04-13 12:14 | XMS_ITS | Encounter Summary ---
:1955 Author Organization [facility] Address [address] [place] [address] Care Team Providers Name Role Phone Elsewhere, Pcp Primary Care Provider Unavailable Encounter Details Date Type Department Care Team Description 03/15/2021 Orders Only Curt Garces Javier, Gail Griffiths Kidney Disease; Center for M.D. 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 [address] [place] [phone] 04/25/2022 Office Visit Otorhinolaryngology Dex Matta, RAMONA, C.N.P., M.S.N. [address] [place] [phone] 05/08/2022 Appointment Laboratory Medicine Angélica Granger, P.A.-C. [address] [place] [phone] 05/08/2022 Clinical Admitting/Central Communication Scheduling 05/10/2022 Appointment Radiology Jeremie Rose M.D. [address] [place] [phone] 05/10/2022 Comprehensive Visit Orthopedic Surgery Warner Graves M.D. [address] [place] [phone] 05/22/2022 Appointment Laboratory Medicine Angélica Granger P.A.-C. [address] [place] [phone] 06/05/2022 Appointment Laboratory Medicine Angélica Granger P.A.-C. [address] [place] [phone] 06/19/2022 Appointment Laboratory Medicine Angélica Granger P.A.-C. [address] [place] [phone] 07/03/2022 Appointment Laboratory Medicine Angélica Granger P.A.-C. [address] [place] [phone] 07/17/2022 Appointment Laboratory Medicine Angélica Granger P.A.-C. [address] [place] [phone] 07/31/2022 Appointment Laboratory Medicine Angélica rGanger P.A.-C. [address] [place] [phone] 08/14/2022 Appointment Laboratory Medicine Angélica Granger P.A.-C. [address] [place] [phone] 08/28/2022 Appointment Laboratory Medicine Angélica Granger P.A.-C. [address] [place] [phone] documented as of this encounter Results HLA Class II SAB Antibody Screen (03/22/2021 2:05 PM CDT) [facility] Time Signature Class II SAB Negative Not Applicable 03/27/2021 DBB8 Overall 10:02 AM CDT Result Class II SAB 0 03/27/2021 DBB8 cPRA 10:02 AM CDT Comment: ----ADDITIONAL INFORMATION---- This PRA is a [facility] Typing [facility] calculated PRA. PRA is based on the antigen frequency of the Tissue Typing patient a nd donor population. ??PRA reflects all antibodie s with a normalized value (MFI) above 300. SAB DRB1 Specificity NONE 03/27/2021 10:02 AM CDT DBB8 SAB [id number] Specificity NONE 03/27/2021 10:02 AM CDT DBB8 SAB DQB1 Specificity NONE 03/27/2021 10:02 AM CDT DBB8 SAB DPB1 Specificity NONE 03/27/2021 10:02 AM CDT DBB8 Comment: ----ADDITIONAL INFORMATION---- Method: Luminex Flow Cytometry CLIA: [id number] ??CLIA Recreation Therapy Aides Teacher: KRISTAL MIMS MD,PhD Specimen Anatomical Collection Method Collection Time Receive d Time (Source) Location / / Volume Laterality Blood (Blood, 03/22/2021 2:05 PM 03/25/20 21 2:10 Venous) CDT PM CDT Resulting Agency Comment Mailed In Specimen Willis Herrera M.D. LAB HLA ORDERABLES Performing Organization Address City/State/ZIP Code Phon e Number [facility] - [address] [place] [phone] [facility] DBB[address] [place] [address] Laboratories-[facility] [address] [facility] HLA Class I SAB Antibody Screen (03/22/2021 2:05 PM CDT) [facility] Method Time Signature Class I SAB Negative Not Applicable 03/27/2021 DBB8 Overall 7:56 AM CDT Result Class I SAB 0 03/27/2021 DBB8 cPRA 7:56 AM CDT Comment: ----ADDITIONAL INFORMATION---- This PRA is a [facility] ue Typing Laboratory calculated PRA. PRA is based on the antigen frequency of the Tissue Typing patient a nd donor population. ??PRA reflects all antibodie s with a normalized value (MFI) above 300. SAB A Specificity NONE 03/27/2021 7:56 AM CDT DBB8 SAB B Specificity NONE 03/27/2021 7:56 AM CDT DBB8 SAB C Specificity NONE 03/27/2021 7:56 AM CDT DBB8 Comment: ----ADDITIONAL INFORMATION---- Method: Luminex Flow Cytometry CLIA: [id number] ??CLIA Recreation Therapy Aides Teacher: KRISTAL MIMS MD,PhD Specimen Anatomical Collection Method Collection Time Receive d Time (Source) Location / / Volume Laterality Blood (Blood, 03/22/2021 2:05 PM 03/25/20 2:10 Venous) CDT PM CDT Resulting Agency Comment Mailed In Specimen Willis Herrera M.D. LAB HLA ORDERABLES Performing Organization Address City/State/[facility] Code Phon e Number [facility] - [address] [place], [place] [address] [facility] [address]BB[address] [place] [address] Laboratories-[facility] [address] documented in this encounter Visit Diagnoses Diagnosis Chronic Kidney Disease Pretransplant Recipient Evaluation Exam documented in this encounter Additional Health Concerns Assessment Noted Time PHQ-9 Depression Total Score: 4 11/28/2020 10:17 AM CD T documented as of this encounter Care Teams Plate Printer Relationship Specialty Start Date End Date Elsewhere, Pcp PCP - General Family Medicine 07/29/17 [facility] - Laboratory Medicine 04/12/20 [place] [address] documented as of this encounter
--- OUTSIDE RECORDS SUMMARY | 2022-04-13 12:14 | XMS_ITS | Encounter Summary ---
:1955 Author Organization [facility] Address [address] [place] [address] Care Team Providers Name Role Phone Elsewhere, Pcp Primary Care Provider Unavailable Encounter Details Date Type Department Care Team Description 04/30/2021 Orders Only Division of Nephrology Eve Garcia Anemia Of Chronic Renal Disease (Primary Dx); and Hypertension in RAMONA, C.N.P., Analysis Consultant surinder Kidney Disease Stage 4 Glomerular Filtration Rate 15-29 (HCC); [place], [place] D.N.P. Chronic Kidney Disease Stage 5 Glomerula r Filtration Rate Less Than 15 (HCC) [address] [facility] [address] [place] [phone] Social History Tobacco Use Types Packs/Day Years [...] or relatives? How often do you attend uatsdin or More than 4 times per year 12/15/2021 scientologist services? 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 [address] [place] [phone] 04/25/2022 Office Visit Otorhinolaryngology Dex Matta, RAMONA, C.N.P., M.S.N. [address] [place] [phone] 05/08/2022 Appointment Laboratory Medicine Angélica Granger, P.A.-C. [address] [place] [phone] 05/08/2022 Clinical Admitting/Central Communication Scheduling 05/10/2022 Appointment Radiology Jeremie Rose M.D. [address] [place] [phone] 05/10/2022 Comprehensive Visit Orthopedic Surgery Warner Graves M.D. [address] [place] [phone] 05/22/2022 Appointment Laboratory Medicine Angélica Granger P.A.-C. [address] [place] [phone] 06/05/2022 Appointment Laboratory Medicine Angélica Granger P.A.-C. [address] [place] [phone] 06/19/2022 Appointment Laboratory Medicine Angélica Granger P.A.-C. [address] [place] [phone] 07/03/2022 Appointment Laboratory Medicine Angélica Granger P.A.-C. [address] [place] [phone] 07/17/2022 Appointment Laboratory Medicine Angélica Granger P.A.-C. [address] [place] [phone] 07/31/2022 Appointment Laboratory Medicine Angélica Granger P.A.-C. [address] [place] [phone] 08/14/2022 Appointment Laboratory Medicine Angélica Granger P.A.-C. [address] [place] [phone] 08/28/2022 Appointment Laboratory Medicine Angélica Granger P.A.-C. [address] [place] [phone] documented as of this encounter Results HemoQuant, Feces (05/01/2021 12:00 PM EXCHANGE ARCHITECT) athologist Signature Hemoglobin, 1.5 <=2 mg Hb/g 05/02/2021 DTL Fecal 3:10 PM EXCHANGE ARCHITECT Comment: ----ADDITIONAL INFORMATION---- This test was developed and its performa nce characteristics determined by [facility] in a manner consistent with CLIA requirements. This test has not been cleared or approved by the U.S. Mer d and Drug Administration. Specimen Anatomical Collection Method Collection Time Receive d Time (Source) Location / / Volume Laterality Stool (Stool) 05/01/2021 12:00 05/02/2021 7:58 PM EXCHANGE ARCHITECT AM EXCHANGE ARCHITECT Eve Garcia APRN, Arley.N.P., D.N.P. LAB BODY FLUID S AND STOOLS ORDERABLES Performing Organization Address City/[facility] Phon e Number [facility] - [address] [place] [phone] [facility] [place] [address] Laboratories-[facility] 200 [facility] Folate (05/01/2021 10:24 AM EXCHANGE ARCHITECT) athologist Signature Folate, S 11.0 >=4.0 mcg/L 05/01/2021 3:41 ECLR PM EXCHANGE ARCHITECT Comment: Biotin has been identified by the audrey burton as a potential interfering substance. ??Higher concentr ations of biotin may be found in multivitamins, hair/nail supple ments, and workout supplements. ??If the result does not [facility] clinical observations, repeat testing after patient refrains fr om the use of supplements for at least 12 hours. Specimen Anatomical Collection Method Collection Time Receive d Time (Source) Location / / Volume Laterality Blood (Blood, 05/01/2021 10:24 05/01/2021 2:57 Venous) AM EXCHANGE ARCHITECT PM EXCHANGE ARCHITECT Eve Garcia APRN, C.N.P., D.N.P. LAB BLOOD ADD- ON Performing Organization Address City/[facility] Phon e Number [facility]- [address] [place] [phone] [facility] [place] [address] System [address] (ABNORMAL) Basic Metabolic Panel (05/01/2021 10:24 AM EXCHANGE ARCHITECT) Analysis Performed At Patho logist Time Signature Potassium, P 3.9 3.6 - 5.2 05/01/2021 CNFL mmol/L 10:45 AM EXCHANGE ARCHITECT Sodium, P 133 (L) 135 - 145 05/01/2021 CNFL mmol/L 10:45 AM EXCHANGE ARCHITECT Chloride, P 95 (L) 98 - 107 05/01/2021 CNFL mmol/L 10:45 AM EXCHANGE ARCHITECT Bicarbonate, P 22 22 - 29 05/01/2021 CNFL mmol/L 10:45 AM EXCHANGE ARCHITECT Anion Gap, P 16 (H) 7 - 15 05/01/2021 CNFL 10:45 AM EXCHANGE ARCHITECT BUN (Blood Urea 66 (H) 8 - 24 05/01/2021 CNFL Nitrogen), P mg/dL 10:45 AM EXCHANGE ARCHITECT Creatinine 3.93 (H) 0.74 - 05/01/2021 CNFL 1.35 mg/dL 10:45 AM EXCHANGE ARCHITECT eGFR-Black/Afri 17 (L) >=60 05/01/2021 CNFL can Indonesian mL/min/BSA 10:45 AM EXCHANGE ARCHITECT Comment: ----ADDITIONAL INFORMATION---- Estimated GFR calculated using the 2009 CKD_EPI creatinine equation. eGFR Non-Black/ <15 (L) >=60 mL/min/BSA 05/01/2021 10:45 AM CNFL Indonesian EXCHANGE ARCHITECT Comment: ----ADDITIONAL INFORMATION---- Estimated GFR calculated using the 2009 CKD_EPI creatinine equation. Calcium, Total, P 8.7 (L) 8.8 - 10.2 mg/dL 05/01/2021 10:4 5 AM EXCHANGE ARCHITECT CNFL Glucose, P 144 (H) 70 - 140 mg/dL 05/01/2021 10:45 AM EXCHANGE ARCHITECT CNFL Specimen Anatomical Collection Method Collection Time Receive d Time (Source) Location / / Volume Laterality Blood (Blood, 05/01/2021 10:24 05/01/2021 Venous) AM EXCHANGE ARCHITECT 10:27 AM EXCHANGE ARCHITECT Eve Garcia APRN, C.N.P., D.N.P. LAB BLOOD ADD- ON Performing Organization Address City/State/ZIP Code Phon e Number [facility] [address] [address] [facility] [address] System [address] (ABNORMAL) Cystatin C with Estimated GFR, S (05/01/2021 10:24 AM EXCHANGE ARCHITECT) athologist Signature eGFR by 7 (L) >60 05/02/2021 DTL Cystatin C mL/min/BSA 7:38 AM EXCHANGE ARCHITECT Comment: Estimated GFR calculated using the CKD-E [...] 0.67 - 1.21 mg/L 05/02/2021 7:38 AM EXCHANGE ARCHITECT DTL Specimen Anatomical Collection Method Collection Time Receive d Time (Source) Location / / Volume Laterality Blood (Blood, 05/01/2021 10:24 05/02/2021 7:20 Venous) AM EXCHANGE ARCHITECT AM EXCHANGE ARCHITECT Eve Garcia APRN, C.N.P., D.N.P. LAB BLOOD ADD- ON Performing Organization Address City/State/ZIP Code Phon e Number [facility] - [address] [place], [place] [address] [facility] [place] [address] Laboratories-[facility] [address] Ferritin (05/01/2021 10:24 AM EXCHANGE ARCHITECT) athologist Signature Ferritin, S 345 31 - 409 05/01/2021 RDWG mcg/L 1:35 PM EXCHANGE ARCHITECT Comment: Biotin has been identified by the audrey burton as a potential interfering substance. ??Higher concentr ations of biotin may be found in multivitamins, hair/nail supple ments, and workout supplements. ??If the result does not [facility] clinical observations, repeat testing after patient refrains fr om the use of supplements for at least 12 hours. Specimen Anatomical Collection Method Collection Time Receive d Time (Source) Location / / Volume Laterality Blood (Blood, 05/01/2021 10:24 05/01/2021 Venous) AM EXCHANGE ARCHITECT 12:49 PM EXCHANGE ARCHITECT Eve Garcia APRN, C.N.P., D.N.P. LAB BLOOD ADD- ON Performing Organization Address City/State/ZIP Code Phon e Number [facility]- [address] [place], [place] [address] [place] [address] System in [place] [address] (ABNORMAL) Iron and Total Iron-Binding Capacity (05/01/2021 10:24 AM EXCHANGE ARCHITECT) P athologist Signature Iron 48 (L) 50 - 150 05/01/2021 RDWG mcg/dL 1:26 PM EXCHANGE ARCHITECT Total Iron 215 (L) 250 - 400 05/01/2021 [facility] Binding mcg/dL 1:26 PM EXCHANGE ARCHITECT Capacity Percent 22 14 - 50 % 05/01/2021 R[facility] Saturation 1:26 PM EXCHANGE ARCHITECT Specimen Anatomical Collection Method Collection Time Receive d Time (Source) Location / / Volume Laterality Blood (Blood, 05/01/2021 10:24 05/01/2021 Venous) AM EXCHANGE ARCHITECT 12:49 PM EXCHANGE ARCHITECT Eve Garcia APRN C.N.P., D.N.P. LAB BLOOD ADD- ON Performing Organization Address City/State/ZIP Code Phon e Number [facility]- [address] [place], [place] [address] [place] [address] System in [place] [address] (ABNORMAL) Reticulocytes (05/01/2021 10:24 AM EXCHANGE ARCHITECT) Patholo gist Method Time Signature Reticulocytes, B 3.41 (H) 0.60 - 05/01/2021 RDWG 2.71 % 1:15 PM EXCHANGE ARCHITECT Absolute 91.0 30.4 - 05/01/2021 RDWG Reticulocyte 110.9 1:15 PM EXCHANGE ARCHITECT x10(9)/L Specimen Anatomical Collection Method Collection Time Receive d Time (Source) Location / / Volume Laterality Blood (Blood, 05/01/2021 10:24 05/01/2021 Venous) AM EXCHANGE ARCHITECT 12:49 PM EXCHANGE ARCHITECT Arley Velasquez APRN.N.PDemetrius, D.N.P. LAB BLOOD ADD- ON Performing Organization Address City/State/ZIP Code Phon e Number [facility]- [address] [facility] [place] [place], [place] [address] [place] [address] System in [place] [address] documented in this encounter Visit Diagnoses Diagnosis Anemia Of Chronic Renal Disease - Primar y Chronic Kidney Disease Stage 4 Glomerula r Filtration Rate 15-29 (HCC) Chronic Kidney Disease Stage 5 Glomerula r Filtration Rate Less Than 15 (HCC) documented in this encounter Additional Health Concerns Assessment Noted Time PHQ-9 Depression Total Score: 4 11/28/2020 10:17 AM CD T documented as of this encounter Care Teams Chief Radiologic Technologist Relationship Specialty Start Date End Date Elsewhere, Pcp PCP - General Family Medicine 07/29/17 [facility] - Laboratory Medicine 04/12/[address] [address] documented as of this encounter
--- OUTSIDE RECORDS SUMMARY | 2022-04-13 12:14 | XMS_ITS | Encounter Summary ---
:1955 Author Organization [facility] Address [address] [place] [address] Care Team Providers Name Role Phone Elsewhere, Pcp Primary Care Provider Unavailable Reason for Visit Reason Comments Cancel Colonoscopy and RX prep Encounter Details Date Type Department Care Team Description 05/21/2021 Clinical Communication Division of Francisco Barry Colonoscopy Nephrology and Padmini Hernandez APRN, and RX prep Hypertension, C.N.P., D.N.P. 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 Singh called stating he was able to get an earlier appointment for his colonoscopy at [facility]. He would like to cancel his colonoscopy here and if you could also cancel his RX prep that you sent to the pharmacy. -- I will contact the scheduling office to cancel his colonoscopy. Thank you. -Pam EM DRAWER IN documented in this encounter Plan of Treatment Upcoming Encounters Date Type Specialty Care Team Description 04/24/2022 Appointment Laboratory Medicine Angélica Granger P.A.-C. [address] [place] [phone] 04/25/2022 Office Visit Otorhinolaryngology Dex Matta APRN, C.N.P., M.S.N. [address] [place] [phone] 05/08/2022 Appointment Laboratory Medicine Angélica Gragner P.A.-C. [address] [place] [phone] 05/08/2022 Clinical Admitting/Central Communication Scheduling 05/10/2022 Appointment Radiology Jeremie Rose M.D. [address] [place] [phone] 05/10/2022 Comprehensive Visit Orthopedic Surgery Warner Graves M.D. [address] [place] [phone] 05/22/2022 Appointment Laboratory Medicine Angélica Granger P.A.-C. [address] [place] [phone] 06/05/2022 Appointment Laboratory Medicine Angélica Granger P.A.-C. [address] [place] [phone] 06/19/2022 Appointment Laboratory Medicine Angélica Granger P.A.-C. [address] [place] [phone] 07/03/2022 Appointment Laboratory Medicine Angélica Granger P.A.-C. [address] [place] [phone] 07/17/2022 Appointment Laboratory Medicine Angélica Granger P.A.-C. [address] [place] [phone] 07/31/2022 Appointment Laboratory Medicine Angélica Granger P.A.-C. [address] [place] [phone] 08/14/2022 Appointment Laboratory Medicine Angélica Granger P.A.-C. [address] [place] [phone] 08/28/2022 Appointment Laboratory Medicine Angélica Granger P.A.-C. [address] [place] [phone] documented as of this encounter Visit Diagnoses Not on filedocumented in this encounter Additional Health Concerns Assessment Noted Time PHQ-9 Depression Total Score: 4 11/28/2020 10:17 AM CD T documented as of this encounter Care Teams Superintendent Police Relationship Specialty Start Date End Date Elsewhere, Pcp PCP - General Family Medicine 07/29/17 [facility] - Laboratory Medicine 04/12/20 [place] [address] documented as of this encounter
--- OUTSIDE RECORDS SUMMARY | 2022-04-13 12:14 | XMS_ITS | Encounter Summary ---
:1955 Author Organization [facility] Address [address] [place] [address] Care Team Providers Name Role Phone Elsewhere, Pcp Primary Care Provider Unavailable Encounter Details Date Type Department Care Team Description 03/15/2021 Hospital Encounter Department of Willis Herrera Chro nic Kidney Disease; Laboratory Medicine M.DDemetrius Pretransplant Recipient Evaluation Exam and Pathology, [address] [place] [address] 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 Medication Therapy Detention Not Anticoagulant sodium chloride USE 4 ML VIA 0 08/30/2020 021 (NEBUSAL) 3 % nebulizer NEBULIZER TWICE solution DAILY Spiriva Respimat 2.5 INHALE 2 PUFFS BY 4 g 0 01/09/20 21 07/26/2021 mcg/actuation inhaler MOUTH DAILY tacrolimus (PROGRAF) Take 2 capsules (1 360 capsule 3 202007/16/2021 0.5 mg mg total) by mouth 2 capsuleIndications: (two) times a day. Transplant Liver (HCC), Medication Therapy Detention Not [...] Laboratory Medicine Angélica Granger P.A.-C. [address] [place] [address] 04/25/2022 Office Visit Otorhinolaryngology Dex Matta APRN, C.N.P., M.S.N. [address] [place] [phone] 05/08/2022 Appointment Laboratory Medicine Angélica Granger P.A.-C. [address] [place] [phone] 05/08/2022 Clinical Admitting/Central Communication Scheduling 05/10/2022 Appointment Radiology Jeremie Rose M.D. [address] [place] [phone] 05/10/2022 Comprehensive Visit Orthopedic Surgery Warner Graves M.D. [address] [place] [phone] 05/22/2022 Appointment Laboratory Medicine Angélica Granger P.A.-C. [address] [place] [phone] 06/05/2022 Appointment Laboratory Medicine Angélica Granger P.A.-C. [address] [place] [phone] 06/19/2022 Appointment Laboratory Medicine Angélica Granger P.A.-C. [address] [place] [phone] 07/03/2022 Appointment Laboratory Medicine Angélica Granger P.A.-C. [address] [place] [phone] 07/17/2022 Appointment Laboratory Medicine Angélica Granger P.A.-C. [address] [place] [phone] 07/31/2022 Appointment Laboratory Medicine Angélica Granger P.A.-C. [address] [place] [phone] 08/14/2022 Appointment Laboratory Medicine Angélica Granger P.A.-C. [address] [place] [phone] 08/28/2022 Appointment Laboratory Medicine Angélica Granger P.A.-C. [address] [place] [phone] documented as of this encounter Procedures Procedure Name Priority Date/Time Associated Diagnosis Comme nts HLA CLASS II SAB Routine 03/22/2021 2:05 PM Chronic Kidney Res ults for this ANTIBODY SCREEN CDT Disease procedure are in Pretransplant the results Recipient Evaluation section . Exam HLA CLASS I SAB Routine 03/22/2021 2:05 PM Chronic Kidney Resu lts for this ANTIBODY SCREEN CDT Disease procedure are in Pretransplant the results Recipient Evaluation section . Exam documented in this encounter Results HLA Class II SAB Antibody Screen (03/22/2021 2:05 PM CDT) [facility] Method Time Signature Class II SAB Negative Not Applicable 03/27/2021 DBB8 Overall 10:02 AM CDT Result Class II SAB 0 03/27/2021 DBB8 cPRA 10:02 AM CDT Comment: ----ADDITIONAL INFORMATION---- This PRA is a [facility] calculated PRA. PRA is based on the antigen frequency of the Tissue Typing patient a nd donor population. ??PRA reflects all antibodie s with a normalized value (MFI) above 300. SAB DRB1 Specificity NONE 03/27/2021 10:02 AM CDT DBB8 SAB [id number] Specificity NONE 03/27/2021 10:02 AM CDT DBB8 SAB DQB1 Specificity NONE 03/27/2021 10:02 AM CDT DBB8 SAB DPB1 Specificity NONE 03/27/2021 10:02 AM CDT DBB8 Comment: ----ADDITIONAL INFORMATION---- Method: Luminex Flow Cytometry CLIA: [id number] ??CLIA Skin Peeling Machine Operator: KRISTAL MIMS MD,PhD Specimen Anatomical Collection Method Collection Time Receive d Time (Source) Location / / Volume Laterality Blood (Blood, 03/22/2021 2:05 PM 03/25/20 21 2:10 Venous) CDT PM CDT Resulting Agency Comment Mailed In Specimen Willis Herrera M.D. LAB HLA ORDERABLES Performing Organization Address City/[facility] Phon e Number [facility] - 200 [place], [place] [address] [facility] [place] [place] [address] Laboratories-[facility] 200 [facility] HLA Class I SAB Antibody Screen (03/22/2021 2:05 PM CDT) [facility] Method Time Signature Class I SAB Negative Not Applicable 03/27/2021 DBB8 Overall 7:56 AM CDT Result Class I SAB 0 03/27/2021 DBB8 cPRA 7:56 AM CDT Comment: ----ADDITIONAL INFORMATION---- This PRA is a [facility]iss [facility] calculated [...] ----ADDITIONAL INFORMATION---- Method: Luminex Flow Cytometry CLIA: [id number] ??CLIA Skin Peeling Machine Operator: KRISTAL MIMS MD,PhD Specimen Anatomical Collection Method Collection Time Receive d Time (Source) Location / / Volume Laterality Blood (Blood, 03/22/2021 2:05 PM 03/25/20 21 2:10 Venous) CDT PM CDT Resulting Agency Comment Mailed In Specimen Willis Herrera M.D. LAB HLA ORDERABLES Performing Organization Address [facility] Code Phon e Number [facility] - [address] [place], [place] [address] [facility] [address]BB[address] [place] [address] Laboratories-[facility] [address] documented in this encounter Visit Diagnoses Diagnosis Chronic Kidney Disease Pretransplant Recipient Evaluation Exam documented in this encounter Additional Health Concerns Assessment Noted Time PHQ-9 Depression Total Score: 4 11/28/2020 10:17 AM CD T documented as of this encounter Care Teams Scorer Single Relationship Specialty Start Date End Date Elsewhere, Pcp PCP - General Family Medicine 07/29/17 [facility] - Laboratory Medicine 04/12/[address] [address] documented as of this encounter
--- OUTSIDE RECORDS SUMMARY | 2022-04-13 12:14 | XMS_ITS | Encounter Summary ---
:1955 Author Organization [facility] Address [address] [place] [address] Care Team Providers Name Role Phone Elsewhere, Pcp Primary Care Provider Unavailable Reason for Referral Outpatient (Routine) - Closed Specialty Diagnoses / Procedures Referred By Contact Refer red To Contact Diagnoses [facility] Procedures Colonoscopy C.N.PDemetrius, D.N.P. 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 [address] [place] [phone] 04/25/2022 Office Visit Otorhinolaryngology Dex Matta APRN, C.N.P., M.S.N. [address] [place] [phone] 05/08/2022 Appointment Laboratory Medicine Angélica Granger P.A.-C. [address] [place] [phone] 05/08/2022 Clinical Admitting/Central Communication Scheduling 05/10/2022 Appointment Radiology Jeremie Rose M.D. [address] [place] [phone] 05/10/2022 Comprehensive Visit Orthopedic Surgery Warner Graves M.D. [address] [place] [phone] 05/22/2022 Appointment Laboratory Medicine Angélica Granger P.A.-C. [address] [place] [phone] 06/05/2022 Appointment Laboratory Medicine Angélica Granger P.A.-C. [address] [place] [phone] 06/19/2022 Appointment Laboratory Medicine Angélica Granger P.A.-C. [address] [place] [phone] 07/03/2022 Appointment Laboratory Medicine Angélica Granger P.A.-C. [address] [place] [phone] 07/17/2022 Appointment Laboratory Medicine Angélica Granger P.A.-C. [address] [place] [phone] 07/31/2022 Appointment Laboratory Medicine Angélica Granger P.A.-C. [address] [place] [phone] 08/14/2022 Appointment Laboratory Medicine Angélica Granger P.A.-C. [address] [place] [phone] 08/28/2022 Appointment Laboratory Medicine Angélica Granger P.A.-C. 200 [place] [phone] documented as of this encounter Visit Diagnoses Diagnosis Anemia - Primary documented in this encounter Additional Health Concerns Assessment Noted Time PHQ-9 Depression Total Score: 4 11/28/2020 10:17 AM CD T documented as of this encounter Care Teams Hydrometeorological Technician Relationship Specialty Start Date End Date Elsewhere, Pcp PCP - General Family Medicine 07/29/17 [facility] - Laboratory Medicine 04/12/[address] [address] documented as of this encounter
--- OUTSIDE RECORDS SUMMARY | 2022-04-13 12:14 | XMS_ITS | Encounter Summary ---
:1955 Author Organization [facility] Address [address] [place] [address] Care Team Providers Name Role Phone Elsewhere, Pcp Primary Care Provider Unavailable Encounter Details Date Type Department Care Team Description 05/21/2021 Orders Only Division of Nephrology Antwan Barry (Primary Dx) and Hypertension in Padmini Hernandez APRNP[place], [place] C.N.P., D.N.P. 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 [address] [place] [phone] 04/25/2022 Office Visit Otorhinolaryngology Dex Matta APRN, C.N.P., M.S.N. [address] [place] [phone] 05/08/2022 Appointment Laboratory Medicine Angélica Granger P.A.-C. [address] [place] [phone] 05/08/2022 Clinical Admitting/Central Communication Scheduling 05/10/2022 Appointment Radiology Jeremie Rose M.D. [address] [place] [phone] 05/10/2022 Comprehensive Visit Orthopedic Surgery Warner Graves M.D. [address] [place] [phone] 05/22/2022 Appointment Laboratory Medicine Angélica Granger P.A.-C. [address] [place] [phone] 06/05/2022 Appointment Laboratory Medicine Angélica Granger P.A.-C. [address] [place] [phone] 06/19/2022 Appointment Laboratory Medicine Angélica Granger P.A.-C. [address] [place] [phone] 07/03/2022 Appointment Laboratory Medicine Angélica Granger P.A.-C. [address] [place] [phone] 07/17/2022 Appointment Laboratory Medicine Angélica Granger P.A.-C. [address] [place] [phone] 07/31/2022 Appointment Laboratory Medicine Angélica Granger P.A.-C. [address] [place] [phone] 08/14/2022 Appointment Laboratory Medicine Angélica Granger P.A.-C. [address] [place] [phone] 08/28/2022 Appointment Laboratory Medicine Angélica Granger P.A.-C. [address] [place] [phone] documented as of this encounter Visit Diagnoses Diagnosis Anemia - Primary documented in this encounter Additional Health Concerns Assessment Noted Time PHQ-9 Depression Total Score: 4 11/28/2020 10:17 AM CD T documented as of this encounter Care Teams Commercial Loan Collection Officer Relationship Specialty Start Date End Date Elsewhere, Pcp PCP - General Family Medicine 07/29/17 [facility] - Laboratory Medicine 04/12/[address] [address] documented as of this encounter
--- OUTSIDE RECORDS SUMMARY | 2022-04-13 12:14 | XMS_ITS | Encounter Summary ---
:1955 Author Organization [facility] Address [address] [place] [address] Care Team Providers Name Role Phone Elsewhere, Pcp Primary Care Provider Unavailable Encounter Details Date Type Department Care Team Description 03/30/2021 Clinical Communication Division of Nephrology Wellerri tter, and Hypertension in Padmini Hernandez APRNG[place], [place] C.N.P., D.N.P. 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 - 03/30/2021 4:16 PM CDT Patient call clinic concerned that his repeat hemoglobin yesterday was 7.9. When I saw him on March 12 I had increased his Aranesp from 60 mcg once a month to 40 every 2 weeks. He is concerned Aranesp is not working and would like to increase his dose. We discussed the importance of needing to wait 4-6 weeks before seeing the results in in adjustment to Aranesp. I advised him I do not think it would be in his best interest to increase the Aranesp again. Likely in 2 weeks we will see an improvement. I have also noticed when trending his iron studies that those are improving as well since he received an iron infusion. He has sinus surgery on April 23 in needs his hemoglobin to be above 8. We will continue to follow his numbers and he will call if he has any other further questions. documented in this encounter Plan of Treatment Upcoming Encounters Date Type Specialty Care Team Description 04/24/2022 Appointment Laboratory Medicine Angélica Granger P.A.-C. [address] [place] [phone] 04/25/2022 Office Visit Otorhinolaryngology GoschDex APRN, C.N.P., M.S.N. [address] [place] [phone] 05/08/2022 Appointment Laboratory Medicine Angélica Granger P.A.-C. [address] [place] [phone] 05/08/2022 Clinical Admitting/Central Communication Scheduling 05/10/2022 Appointment Radiology Jeremie Rose M.D. [address] [place] [phone] 05/10/2022 Comprehensive Visit Orthopedic Surgery Warner Graves M.D. [address] [place] [phone] 05/22/2022 Appointment Laboratory Medicine Angélica Granger P.A.-C. [address] [place] [phone] 06/05/2022 Appointment Laboratory Medicine Angélica Granger P.A.-C. [address] [place] [phone] 06/19/2022 Appointment Laboratory Medicine Angélica Granger P.A.-C. [address] [place] [phone] 07/03/2022 Appointment Laboratory Medicine Angélica Granger P.A.-C. [address] [place] [phone] 07/17/2022 Appointment Laboratory Medicine Angélica Granger P.A.-C. [address] [place] [phone] 07/31/2022 Appointment Laboratory Medicine Angélica Granger P.A.-C. [address] [place] [phone] 08/14/2022 Appointment Laboratory Medicine Angélica Granger P.A.-C. [address] [place] [phone] 08/28/2022 Appointment Laboratory Medicine Angélica Granger P.A.-C. [address] [place] [phone] documented as of this encounter Visit Diagnoses Not on filedocumented in this encounter Additional Health Concerns Assessment Noted Time PHQ-9 Depression Total Score: 4 11/28/2020 10:17 AM CD T documented as of this encounter Care Teams Ship Unloader Relationship Specialty Start Date End Date Elsewhere, Pcp PCP - General Family Medicine 07/29/17 [facility] - Laboratory Medicine 04/12/[address] [address] documented as of this encounter
--- OUTSIDE RECORDS SUMMARY | 2022-04-13 12:14 | XMS_ITS | Encounter Summary ---
:1955 Author Organization [facility] Address [address] [place] [address] Care Team Providers Name Role Phone Elsewhere, Pcp Primary Care Provider Unavailable Encounter Details Date Type Department Care Team Description 05/22/2021 Clinical Communication Division of Nephrology Eve Garcia and Hypertension in [place], C.N.P., [place], [place] D.N.P. 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 - 05/22/2021 4:59 PM CST Call to the patient. He does have blood in his stool per hemocult testing that was done. We are going to get a colonoscopy here done at [facility]. He is having labs tomorrow and we can review his CBC and kidney function. His care was discussed with my colleague Padmini Barry CNP. He knows he can call me tomorrow if he needs to discuss his lab results. 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 [address] [place] [phone] 04/25/2022 Office Visit Otorhinolaryngology Dex Matta APRN C.N.PDemetrius, M.S.N. [address] [place] [phone] 05/08/2022 Appointment Laboratory Medicine Angélica Granger P.A.-C. [address] [place] [phone] 05/08/2022 Clinical Admitting/Central Communication Scheduling 05/10/2022 Appointment Radiology Jeremie Rose M.D. [address] [place] [phone] 05/10/2022 Comprehensive Visit Orthopedic Surgery Warner Graves M.D. [address] [place] [phone] 05/22/2022 Appointment Laboratory Medicine Angélica Granger P.A.-C. [address] [place] [phone] 06/05/2022 Appointment Laboratory Medicine Angélica Granger P.A.-C. [address] [place] [phone] 06/19/2022 Appointment Laboratory Medicine Angélica Granger P.A.-C. [address] [place] [phone] 07/03/2022 Appointment Laboratory Medicine Angélica Granger P.A.-C. [address] [place] [phone] 07/17/2022 Appointment Laboratory Medicine Angélica Granger P.A.-C. [address] [place] [phone] 07/31/2022 Appointment Laboratory Medicine Angélica Granger P.A.-C. [address] [place] [phone] 08/14/2022 Appointment Laboratory Medicine Angélica Granger P.A.-C. [address] [place] [phone] 08/28/2022 Appointment Laboratory Medicine Angélica Granger P.A.-C. [address] [place] [phone] documented as of this encounter Visit Diagnoses Not on filedocumented in this encounter Additional Health Concerns Assessment Noted Time PHQ-9 Depression Total Score: 4 11/28/2020 10:17 AM CD T documented as of this encounter Care Teams Wash Helper Relationship Specialty Start Date End Date Elsewhere, Pcp PCP - General Family Medicine 07/29/17 [facility] - Laboratory Medicine 04/12/[address] [address] documented as of this encounter
[2022-04-13 12:15] LABS: Carbon Dioxide* 26 mmol/L (20-32); Creatinine* 1.8 mg/dL (0.5-1.5); Est. Creatinine Clearance* 39.82; Estimated Glomerular Filt Rate 41 ml/min
--- OUTSIDE RECORDS SUMMARY | 2022-04-13 12:15 | XMS_ITS | Encounter Summary ---
:1955 Author Organization [facility] Address [address] [place] [address] Care Team Providers Name Role Phone Elsewhere, Pcp Primary Care Provider Unavailable Encounter Details Date Type Department Care Team Description 03/07/2021 Orders Only Division of Nephrology Eve Garcia Chronic Kidney and Hypertension in M, VPK TEACHER, C.N.P., Dise ase Stage 4 [place], [place] D.N.P. 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 [address] [place] [phone] 04/25/2022 Office Visit Otorhinolaryngology Dex Matta, RAMONA, C.N.P., M.S.N. [address] [place] [phone] 05/08/2022 Appointment Laboratory Medicine Angélica Granger, P.A.-C. [address] [place] [phone] 05/08/2022 Clinical Admitting/Central Communication Scheduling 05/10/2022 Appointment Radiology Jeremie Rose M.D. [address] [place] [phone] 05/10/2022 Comprehensive Visit Orthopedic Surgery Warner Graves M.D. [address] [place] [phone] 05/22/2022 Appointment Laboratory Medicine Angélica Granger P.A.-C. [address] [place] [phone] 06/05/2022 Appointment Laboratory Medicine Angélica Granger P.A.-C. [address] [place] [phone] 06/19/2022 Appointment Laboratory Medicine Angélica Granger P.A.-C. [address] [place] [phone] 07/03/2022 Appointment Laboratory Medicine Angélica Granger P.A.-C. [address] [place] [phone] 07/17/2022 Appointment Laboratory Medicine Angélica Granger P.A.-C. [address] [place] [phone] 07/31/2022 Appointment Laboratory Medicine Angélica Granger P.A.-C. [address] [place] [phone] 08/14/2022 Appointment Laboratory Medicine Angélica Granger P.A.-C. [address] [place] [address] [phone] 08/28/2022 Appointment Laboratory Medicine Angélica Granger P.A.-C. [address] [place] [phone] documented as of this encounter Results (ABNORMAL) Albumin, Random, Urine (03/12/2021 8:04 AM CDT) [facility] Time Signature Microalbumin 440.3 mg/L 03/12/2021 CNFL 9:17 AM CDT Creatinine 57 mg/dL 03/12/2021 CNFL 8:55 AM CDT Albumin/Creatinin 772 (H) <17 mg/g 03/12/2021 CNFL e Ratio 9:17 AM CDT Specimen Anatomical Collection Method Collection Time Receive d Time (Source) Location / / Volume Laterality Urine (Urine, 03/12/2021 8:04 AM 03/12/20 8:04 Clean Catch) CDT AM CDT Eve Garcia APRN C.N.P., D.N.P. LAB URINE [place] Performing Organization Address City/State/ZIP Code Phon e Number [address] [address] [place] [address] [address] (ABNORMAL) Urinalysis with Microscopic: Urine, Midstream (03/12/2021 8:04 AM CDT) P athologist Signature Source Midstream 03/12/2021 CNFL 8:21 AM CDT Clarity Clear Clear 03/12/2021 CNFL 8:23 AM CDT Color Yellow 03/12/2021 CNFL 8:23 AM CDT Comment: ----REFERENCE VALUE---- Colorless Yellow Bhakti Blood Small (A) Negative 03/12/2021 8:23 AM CDT CNFL Nitrite Negative Negative 03/12/2021 8:23 AM CDT CNFL Leukocyte Esterase Negative Negative 03/12/2021 8:23 AM CD T CNFL Protein 100 (A) mg/dL 03/12/2021 8:23 AM CDT CNFL Comment: ----REFERENCE VALUE---- Negative Trace Glucose Negative Negative mg/dL 03/12/2021 8:23 AM CDT CN FL Ketones, QI(U) Negative Negative mg/dL 03/12/2021 8:23 AM C DT CNFL Bilirubin Negative Negative 03/12/2021 8:23 AM CDT CNFL pH 6.5 5.0 - 8.0 03/12/2021 8:23 AM CDT CNFL Specific [place] 1.010 1.001 - 1.035 03/12/2021 8:23 AM CDT CNFL Urobilinogen 0.2 0.2 - 1.0 mg/dL 03/12/2021 8:23 AM CD T CNFL White Blood Cells None Seen /hpf 03/12/2021 8:23 AM CDT CNFL Comment: ----REFERENCE VALUE---- Males: 0-3 Females: 0-10 Unknown: 0-10 Red Blood Cells Occ-2 0 - 2 /hpf 03/12/2021 8:23 AM CDT CNFL Dysmorphic Red Blood Cells <=25 <=25 % 03/12/2021 8: 23 AM CDT CNFL Specimen Anatomical Collection Method Collection Time Receive d Time (Source) Location / / Volume Laterality Urine (Urine, 03/12/2021 8:04 AM 03/12/20 8:04 Midstream) CDT AM CDT Eve Garcia APRN C.N.P., D.N.P. LAB URINE CATHERINEE [place] Performing Organization Address City/State/ZIP Code Phon e Number [facility]- [address] [place] [id number] [place] [address] Ferritin (03/12/2021 7:52 AM CDT) P athologist Signature Ferritin, S 389 31 - 409 03/12/2021 RDWG mcg/L 2:11 PM CDT Comment: Biotin has been identified [...] Location / / Volume Laterality Blood (Blood, 03/12/2021 7:52 AM 03/12/20 1:34 Venous) CDT PM CDT Eve Garcia APRN, C.N.P., D.N.P. LAB BLOOD ADD- ON Performing Organization Address City/State/ZIP Code Phon e Number [facility]- [address] [place], [place] [address] [place] [address] System [address] (ABNORMAL) Iron and Total Iron-Binding Capacity (03/12/2021 7:52 AM CDT) athologist Signature Iron 72 50 - 150 03/12/2021 RDWG mcg/dL 2:00 PM CDT Total Iron 207 (L) 250 - 400 03/12/2021 R[facility] Binding mcg/dL 2:00 PM CDT Capacity Percent 35 14 - 50 % 03/12/2021 R[facility] Saturation 2:00 PM CDT Specimen Anatomical Collection Method Collection Time Receive d Time (Source) Location / / Volume Laterality Blood (Blood, 03/12/2021 7:52 AM 03/12/20 1:34 Venous) CDT PM CDT Eve Garcia APRN, C.N.P., D.N.P. LAB BLOOD ADD- ON Performing Organization Address City/State/ZIP Code Phon e Number [facility]- [address] [place], [place] [address] [place] [address] [address] (ABNORMAL) Cystatin C with Estimated GFR, S (03/12/2021 7:52 AM CDT) athologist Signature eGFR by 9 (L) >60 03/13/2021 DTL Cystatin C mL/min/BSA 8:23 AM CDT Comment: Estimated GFR calculated using [...] lower with the new assay. Cystatin C 4.80 (H) 0.67 - 1.21 mg/L 03/13/2021 8:23 AM CDT DT Specimen Anatomical Collection Method Collection Time Receive d Time (Source) Location / / Volume Laterality Blood (Blood, 03/12/2021 7:52 AM 03/13/20 7:49 Venous) CDT AM CDT Eve Garcia APRN C.N.P., D.N.P. LAB BLOOD ADD- ON Performing Organization Address City/State/ZIP Code Phon e Number [facility] - [address] [place], [place] [address] [place] [address] [facility] [address] (ABNORMAL) Parathyroid Hormone (PTH) (03/12/2021 7:52 AM CDT) P athologist Signature Parathyroid 67 (H) 15 - 65 03/12/2021 RDW[facility] Hormone (PTH), S pg/mL 2:11 PM CDT Comment: Biotin has been identified [...] Location / / Volume Laterality Blood (Blood, 03/12/2021 7:52 AM 03/12/20 1:34 Venous) CDT PM CDT Eve Garcia APRN C.N.P., D.N.P. LAB BLOOD ADD- ON Performing Organization Address City/State/ZIP Code Phon e Number [facility]- [address] [place], [place] [address] [place] [address] System in [place] [address] (ABNORMAL) Renal Function Panel (03/12/2021 7:52 AM CDT) Analysis Performed At [facility]o logist Time Signature Potassium, P 3.7 3.6 - 5.2 03/12/2021 CNFL mmol/L 8:47 AM CDT Sodium, P 135 135 - 145 03/12/2021 CNFL mmol/L 8:47 AM CDT Chloride, P 99 98 - 107 03/12/2021 CNFL mmol/L 8:47 AM CDT Bicarbonate, P 24 22 - 29 03/12/2021 CNFL mmol/L 8:47 AM CDT Anion Gap, P 12 7 - 15 03/12/2021 CNFL 8:47 AM CDT BUN (Blood Urea 63 (H) 8 - 24 03/12/2021 CNFL Nitrogen), P mg/dL 8:47 AM CDT Creatinine 3.40 (H) 0.74 - 03/12/2021 CNFL 1.35 mg/dL 8:47 AM CDT eGFR-Black/Afri 21 (L) >=60 03/12/2021 CNFL can [place] mL/min/BSA 8:47 AM CDT Comment: ----ADDITIONAL INFORMATION---- Estimated GFR calculated using the 2009 CKD_EPI creatinine equation. eGFR Non-Black/ 18 (L) >=60 mL/min/BSA 03/12/2021 8:47 AM CDT CNFL [place] Comment: ----ADDITIONAL INFORMATION---- Estimated GFR calculated using the 2009 CKD_EPI creatinine equation. Calcium, Total, P 8.7 (L) 8.8 - 10.2 mg/dL 03/12/2021 8:47 AM CDT CNFL Glucose, P 125 70 - 140 mg/dL 03/12/2021 8:47 AM CDT C NFL Albumin, P 3.7 3.5 - 5.0 g/dL 03/12/2021 8:47 AM CDT C NFL Phosphorus (Inorganic), P 4.3 2.5 - 4.5 mg/dL 03/12/20 8:47 AM CDT CNFL Specimen Anatomical Collection Method Collection Time Receive d Time (Source) Location / / Volume Laterality Blood (Blood, 03/12/2021 7:52 AM 03/12/20 7:53 Venous) CDT AM CDT Eve Garcia APRN, C.N.P., D.N.P. LAB BLOOD ADD- ON Performing Organization Address City/State/ZIP Code Phon e Number [address] [address] [place] [address] [address] (ABNORMAL) CBC without Differential (03/12/2021 7:52 AM CDT) [employer] gist Method Time Signature Hemoglobin 7.9 (L) 13.2 - 03/12/2021 CNFL 16.6 g/dL 8:22 AM CDT Hematocrit 24.7 (L) 38.3 - 03/12/2021 CNFL 48.6 % 8:22 AM CDT Erythrocytes 2.60 (L) 4.35 - 03/12/2021 CNFL 5.65 8:22 AM CDT x10(12)/L MCV 95.0 78.2 - 03/12/2021 CNFL 97.9 fL 8:22 AM CDT RBC Distrib Width 12.2 11.8 - 03/12/2021 CNFL 14.5 % 8:22 AM CDT Platelet Count 198 135 - 317 03/12/2021 CNFL x10(9)/L 8:22 AM CDT Leukocytes 3.2 (L) 3.4 - 9.6 03/12/2021 CNFL x10(9)/L 8:22 AM CDT Specimen Anatomical Collection Method Collection Time Receive d Time (Source) Location / / Volume Laterality Blood (Blood, 03/12/2021 7:52 AM 03/12/20 7:54 Venous) CDT AM CDT Eve Garica APRN, C.N.P., D.N.P. LAB BLOOD ADD- ON Performing Organization Address City/State/ZIP [facility] Phon e Number [address] [address] [place] [address] System [address] documented in this encounter Visit Diagnoses Diagnosis Chronic Kidney Disease Stage 4 Glomerula r Filtration Rate 15-29 (HCC) - Primary documented in this encounter Additional Health Concerns Assessment Noted Time PHQ-9 Depression Total Score: 4 11/28/2020 10:17 AM CD T documented as of this encounter Care Teams Recycling Operations Manager Relationship Specialty Start Date End Date Elsewhere, Pcp PCP - General Family Medicine 07/29/17 [facility] - Laboratory Medicine 04/12/20 [place] [address] documented as of this encounter
--- OUTSIDE RECORDS SUMMARY | 2022-04-13 12:15 | XMS_ITS | Encounter Summary ---
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 [address] [place] [phone] 04/25/2022 Office Visit Otorhinolaryngology Dex Matta, RAMONA, C.N.P., M.S.N. [address] [place] [phone] 05/08/2022 Appointment Laboratory Medicine Angélica Granger P.A.-CDemetrius [address] [place] [phone] 05/08/2022 Clinical Admitting/Central Communication Scheduling 05/10/2022 Appointment Radiology Jeremie Rose M.D. [address] [place] [phone] 05/10/2022 Comprehensive Visit Orthopedic Surgery Warner Graves M.D. [address] [place] [phone] 05/22/2022 Appointment Laboratory Medicine Angélica Granger P.A.-C. [address] [place] [phone] 06/05/2022 Appointment Laboratory Medicine Angélica Granger P.A.-C. [address] [place] [phone] 06/19/2022 Appointment Laboratory Medicine Angélica Granger P.A.-C. [address] [place] [phone] 07/03/2022 Appointment Laboratory Medicine Angélica Granger P.A.-C. [address] [place] [phone] 07/17/2022 Appointment Laboratory Medicine Angélica Granger P.A.-C. [address] [place] [phone] 07/31/2022 Appointment Laboratory Medicine Angélica Granger P.A.-C. [address] [place] [phone] 08/14/2022 Appointment Laboratory Medicine Angélica Granger P.A.-C. [address] [place] [phone] 08/28/2022 Appointment Laboratory Medicine Angélica Granger P.A.-C. [address] [place] [phone] documented as of this encounter Visit Diagnoses Diagnosis Hypertension Essential Primary documented in this encounter Additional Health Concerns Assessment Noted Time PHQ-9 Depression Total Score: 4 11/28/2020 10:17 AM CD T documented as of this encounter Care Teams Bacon De Rinder Relationship Specialty Start Date End Date Elsewhere, Pcp PCP - General Family Medicine 07/29/17 [facility] - Laboratory Medicine 04/12/20 [place] [phone] documented as of this encounter
--- OUTSIDE RECORDS SUMMARY | 2022-04-13 12:15 | XMS_ITS | Encounter Summary ---
:[address] 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 [address] [place] [phone] 05/08/2022 Appointment Laboratory Medicine Angélica Granger P.A.-CDemetrius [address] [place] [phone] 05/08/2022 Clinical Admitting/Central Communication Scheduling 05/10/2022 Appointment Radiology Jeremie Rose M.D. [address] [place] [phone] 05/10/2022 Comprehensive Visit Orthopedic Surgery Warner Graves M.D. [address] [place] [phone] 05/22/2022 Appointment Laboratory Medicine Angélica Granger P.A.-CDemetrius [address] [place] [phone] 06/05/2022 Appointment Laboratory Medicine Angélica Granger P.A.-C. [address] [place] [phone] 06/19/2022 Appointment Laboratory Medicine Angélica Granger P.A.-C. [address] [place] [phone] 07/03/2022 Appointment Laboratory Medicine Angélica Granger P.A.-C. [address] [place] [phone] 07/17/2022 Appointment Laboratory Medicine Angélica Granger P.A.-C. [address] [place] [address] [phone] 07/31/2022 Appointment Laboratory Medicine Angélica Granger P.A.-C. [address] [place] [phone] 08/14/2022 Appointment Laboratory Medicine Angélica Granger P.A.-C. [address] [place] [address] [phone] 08/28/2022 Appointment Laboratory Medicine Angélica Granger P.A.-C. [address] [place] [phone] documented as of this encounter Visit Diagnoses Not on filedocumented in this encounter Additional Health Concerns Assessment Noted Time PHQ-9 Depression Total Score: 4 11/28/2020 10:17 AM CD T documented as of this encounter Care Teams Group Manager Relationship Specialty Start Date End Date Elsewhere, Pcp PCP - General Family Medicine 07/29/17 [facility] - Laboratory Medicine 04/12/[address] [phone] documented as of this encounter
--- OUTSIDE RECORDS SUMMARY | 2022-04-13 12:15 | XMS_ITS | Encounter Summary ---
:1955 Author Organization [facility] Address [address] [place] [address] Care Team Providers Name Role Phone Elsewhere, Pcp Primary Care Provider Unavailable Encounter Details Date Type Department Care Team Description 02/09/2021 Immunization Department of Family Medicine, [facility], in [place], [place] [address] [place] [address] [facility] [phone] Social History Tobacco Use Types Packs/Day Years [...] More than 4 times per year 12/15/2021 church services? 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 [address] [place] [phone] 04/25/2022 Office Visit Otorhinolaryngology Dex Matta APRN, C.N.P., M.S.N. [address] [place] [phone] 05/08/2022 Appointment Laboratory Medicine Angélica Granger P.A.-C. [address] [place] [address] [phone] 05/08/2022 Clinical Admitting/Central Communication Scheduling 05/10/2022 Appointment Radiology Jeremie Rose M.D. [address] [place] [phone] 05/10/2022 Comprehensive Visit Orthopedic Surgery Warner Graves M.D. [address] [place] [address] [phone] 05/22/2022 Appointment Laboratory Medicine Angélica Granger P.A.-C. [address] [place] [address] [phone] 06/05/2022 Appointment Laboratory Medicine Angélica Granger P.A.-C. [address] [place] [phone] 06/19/2022 Appointment Laboratory Medicine Angélica Granger P.A.-C. [address] [place] [phone] 07/03/2022 Appointment Laboratory Medicine Angélica Granger P.A.-C. [address] [place] [phone] 07/17/2022 Appointment Laboratory Medicine Angélica Granger P.A.-C. [address] [place] [phone] 07/31/2022 Appointment Laboratory Medicine Angélica Granger P.A.-C. [address] [place] [phone] 08/14/2022 Appointment Laboratory Medicine Angélica Granger P.A.-C. [address] [place] [phone] 08/28/2022 Appointment Laboratory Medicine Angélica Granger P.A.-C. [address] [place] [phone] documented as of this encounter Visit Diagnoses Not on filedocumented in this encounter Additional Health Concerns Assessment Noted Time PHQ-9 Depression Total Score: 4 11/28/2020 10:17 AM CD T documented as of this encounter Care Teams Boot And Saddle Repair Person Relationship Specialty Start Date End Date Elsewhere, Pcp PCP - General Family Medicine 07/29/17 [facility] - Laboratory Medicine 04/12/[address] [address] documented as of this encounter
--- OUTSIDE RECORDS SUMMARY | 2022-04-13 12:15 | XMS_ITS | Encounter Summary ---
:1955 Author Organization [facility] Address [address] [place] [address] Care Team Providers Name Role Phone Elsewhere, Pcp Primary Care Provider Unavailable Encounter Details Date Type Department Care Team Description 01/12/2021 Orders Only Division of Nephrology Antwan Barry (Primary Dx) and Hypertension in [place], [place] C.N.P., D.N.P. 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 [address] [place] [phone] 04/25/2022 Office Visit Otorhinolaryngology Dex Matta APRN, C.N.P., M.S.N. [address] [place] [phone] 05/08/2022 Appointment Laboratory Medicine Angélica Granger P.A.-C. [address] [place] [phone] 05/08/2022 Clinical Admitting/Central Communication Scheduling 05/10/2022 Appointment Radiology Jeremie Rose M.D. [address] [place] [phone] 05/10/2022 Comprehensive Visit Orthopedic Surgery Warner Graves M.D. [address] [place] [address] [phone] 05/22/2022 Appointment Laboratory Medicine Angélica Granger P.A.-C. [address] [place] [phone] 06/05/2022 Appointment Laboratory Medicine Angélica Granger P.A.-C. [address] [place] [phone] 06/19/2022 Appointment Laboratory Medicine Angélica Granger P.A.-C. [address] [place] [phone] 07/03/2022 Appointment Laboratory Medicine Angélica Granger P.A.-C. [address] [place] [phone] 07/17/2022 Appointment Laboratory Medicine Angélica Granger P.A.-C. [address] [place] [phone] 07/31/2022 Appointment Laboratory Medicine Angélica Granger P.A.-C. [address] [place] [phone] 08/14/2022 Appointment Laboratory Medicine Angélica Granger P.A.-C. [address] [place] [phone] 08/28/2022 Appointment Laboratory Medicine Angélica Granger P.A.-C. [address] [place] [phone] Scheduled Orders Name Type Priority Associated Diagnoses Order S chedule CBC without Differential Lab Routine Anemia mon thly for 12 Occurrences sta rting 01/12/2021 unti l 01/13/2024 documented as of this encounter Visit Diagnoses Diagnosis Anemia - Primary documented in this encounter Additional Health Concerns Assessment Noted Time PHQ-9 Depression Total Score: 4 11/28/2020 10:17 AM CD T documented as of this encounter Care Teams Business Reporter Relationship Specialty Start Date End Date Elsewhere, Pcp PCP - General Family Medicine 07/29/17 [facility] - Laboratory Medicine 04/12/20 [place] [address] documented as of this encounter
--- OUTSIDE RECORDS SUMMARY | 2022-04-13 12:15 | XMS_ITS | Encounter Summary ---
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 [address] [place] [phone] 04/25/2022 Office Visit Otorhinolaryngology Dex Matta APRN, C.N.P., M.S.N. [address] [place] [phone] 05/08/2022 Appointment Laboratory Medicine Angélica Granger P.A.-C. [address] [place] [phone] 05/08/2022 Clinical Admitting/Central Communication Scheduling 05/10/2022 Appointment Radiology Jeremie Rose M.D. [address] [place] [phone] 05/10/2022 Comprehensive Visit Orthopedic Surgery Warner Graves M.D. [address] [place] [phone] 05/22/2022 Appointment Laboratory Medicine Angélica Granger P.A.-C. [address] [place] [phone] 06/05/2022 Appointment Laboratory Medicine Angélica Granger P.A.-C. [address] [place] [phone] 06/19/2022 Appointment Laboratory Medicine Angélica Granger P.A.-C. [address] [place] [phone] 07/03/2022 Appointment Laboratory Medicine Angélica Granger P.A.-C. [address] [place] [phone] 07/17/2022 Appointment Laboratory Medicine Angélica Granger P.A.-C. [address] [place] [phone] 07/31/2022 Appointment Laboratory Medicine Angélica Granger P.A.-C. [address] [place] [phone] 08/14/2022 Appointment Laboratory Medicine Angélica Granger P.A.-C. [address] [place] [phone] 08/28/2022 Appointment Laboratory Medicine Angélica Granger P.A.-C. [address] [place] [phone] documented as of this encounter Visit Diagnoses Not on filedocumented in this encounter Additional Health Concerns Assessment Noted Time PHQ-9 Depression Total Score: 4 11/28/2020 10:17 AM CD T documented as of this encounter Care Teams Oil Painter Relationship Specialty Start Date End Date Elsewhere, Pcp PCP - General Family Medicine 07/29/17 [facility] - Laboratory Medicine 04/12/20 [place] [phone] documented as of this encounter
--- OUTSIDE RECORDS SUMMARY | 2022-04-13 12:15 | XMS_ITS | Encounter Summary ---
:1955 Author Organization [facility] Address [address] [place] [address] Care Team Providers Name Role Phone Elsewhere, Pcp Primary Care Provider Unavailable Encounter Details Date Type Department Care Team Description 03/12/2021 Hospital Encounter Department of Eve Garcia Kidney Laboratory Medicine RAMONA Draper, C.N.PDemetrius, Dise ase Stage 4 in Louie HartNJuan Miguel Glomerular [place] [address] [facility] Filtration Rate [address] [address] [place], [place] [address]29 ([facility]) [address] [address] [place], [place] [phone] [address] (Work) [phone] Social History Tobacco Use Types Packs/Day Years [...] at Date Recorded 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 [address] [place] [address] 04/25/2022 Office Visit Otorhinolaryngology Dex Matta APRN C.NDemetriusP., M.S.N. [address] [place] [phone] 05/08/2022 Appointment Laboratory Medicine Angélica Granger P.A.-C. [address] [place] [phone] 05/08/2022 Clinical Admitting/Central Communication Scheduling 05/10/2022 Appointment Radiology Jeremie Rose M.D. [address] [place] [phone] 05/10/2022 Comprehensive Visit Orthopedic Surgery Warner Graves M.D. [address] [place] [phone] 05/22/2022 Appointment Laboratory Medicine Angélica Granger P.A.-C. [address] [place] [address] [phone] 06/05/2022 Appointment Laboratory Medicine Angélica Granger P.A.-C. [address] [place] [phone] 06/19/2022 Appointment Laboratory Medicine Angélica Granger P.A.-C. [address] [place] [phone] 07/03/2022 Appointment Laboratory Medicine Angélica Granger P.A.-C. [address] [place] [phone] 07/17/2022 Appointment Laboratory Medicine Angélica Granger P.A.-C. [address] [place] [phone] 07/31/2022 Appointment Laboratory Medicine Angélica Granger P.A.-C. [address] [place] [address] 08/14/2022 Appointment Laboratory Medicine Angélica Granger P.A.-C. [address] [place] [phone] 08/28/2022 Appointment Laboratory Medicine Angélica Granger P.A.-C. [address] [place] [phone] documented as of this encounter Procedures Procedure Name Priority Date/Time Associated Comments Diagnosis ALBUMIN, RANDOM, U Routine 03/12/2021 8:04 AM Chronic Kidney R esults for this CDT Disease Stage 4 procedure ar e in Glomerular the results Filtration Rate section. (HCC) URINALYSIS WITH Routine 03/12/2021 8:04 AM Chronic Kidney Resu lts for this MICROSCOPIC CDT Disease Stage 4 procedure ar e in Glomerular the results Filtration Rate section. (HCC) documented in this encounter Results (ABNORMAL) Albumin, Random, Urine (03/12/2021 8:04 AM CDT) [facility] gist Method Time Signature Microalbumin 440.3 mg/L 03/12/2021 CNFL 9:17 AM CDT Creatinine 57 mg/dL 03/12/2021 CNFL 8:55 AM CDT Albumin/Creatinin 772 (H) <17 mg/g 03/12/2021 CNFL e Ratio 9:17 AM CDT Specimen Anatomical Collection Method Collection Time Receive d Time (Source) Location / / Volume Laterality Urine (Urine, 03/12/2021 8:04 AM 03/12/20 8:04 Clean Catch) CDT AM CDT Eve Garcia APRN, C.N.P., D.N.P. LAB URINE [place]DE [place] Performing Organization Address City/State/ZIP Code Phon e Number [facility]- [address] [place] [address] [place] [address] (ABNORMAL) Urinalysis with Microscopic: Urine, Midstream [...] 8.0 03/12/2021 8:23 AM CDT CNFL Specific [place] 1.010 1.001 - 1.035 03/12/2021 8:23 AM [...] 8:04 Midstream) CDT AM CDT Eve Garcia APRN, C.N.P., D.N.P. LAB URINE PIPER [place] Performing Organization Address City/State/[facility] Code Phon e Number [facility]- [address] [place] [address] [place] [address] [place] [address] System [address] documented in this encounter Visit Diagnoses Diagnosis Chronic Kidney Disease Stage 4 Glomerula r Filtration Rate 15-29 (HCC) documented in this encounter Additional Health Concerns Assessment Noted Time PHQ-9 Depression Total Score: 4 11/28/2020 10:17 AM CD T documented as of this encounter Care Teams Logistics Supervisor Relationship Specialty Start Date End Date Elsewhere, Pcp PCP - General Family Medicine 07/29/17 [facility] - Laboratory Medicine 04/12/[address] [address] documented as of this encounter
--- OUTSIDE RECORDS SUMMARY | 2022-04-13 12:15 | XMS_ITS | Encounter Summary ---
:1955 Author Organization [facility] Address [address] [place] [address] Care Team Providers Name Role Phone Elsewhere, Pcp Primary Care Provider Unavailable Encounter Details Date Type Department Care Team Description 01/15/2021 Clinical Communication Division of Nephrology Wellerri tter, and Hypertension in [place], [place] C.N.P., D.N.P. 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 [address] [place] [phone] 05/08/2022 Appointment Laboratory Medicine Angélica Granger P.A.-CDemetrius [address] [place] [phone] 05/08/2022 Clinical Admitting/Central Communication Scheduling 05/10/2022 Appointment Radiology Jeremie Rose M.D. [address] [place] [phone] 05/10/2022 Comprehensive Visit Orthopedic Surgery Warner Graves M.D. [address] [place] [phone] 05/22/2022 Appointment Laboratory Medicine Angélica Granger P.A.-C. [address] [place] [phone] 06/05/2022 Appointment Laboratory Medicine Angélica Granger P.A.-C. [address] [place] [phone] 06/19/2022 Appointment Laboratory Medicine Angélica Granger P.A.-C. [address] [place] [phone] 07/03/2022 Appointment Laboratory Medicine Angélica Granger P.A.-C. [address] [place] [phone] 07/17/2022 Appointment Laboratory Medicine Angélica Granger P.A.-C. [address] [place] [phone] 07/31/2022 Appointment Laboratory Medicine Angélica Granger P.A.-C. [address] [place] [phone] 08/14/2022 Appointment Laboratory Medicine Angélica Granger P.A.-C. [address] [place] [phone] 08/28/2022 Appointment Laboratory Medicine Angélica Granger P.A.-C. [address] [place] [phone] documented as of this encounter Visit Diagnoses Not on filedocumented in this encounter Additional Health Concerns Assessment Noted Time PHQ-9 Depression Total Score: 4 11/28/2020 10:17 AM CD T documented as of this encounter Care Teams Production Laborer Relationship Specialty Start Date End Date Elsewhere, Pcp PCP - General Family Medicine 07/29/17 [facility] - Laboratory Medicine 04/12/[address] [address] documented as of this encounter
--- OUTSIDE RECORDS SUMMARY | 2022-04-13 12:15 | XMS_ITS | Encounter Summary ---
:1955 Author Organization [facility] Address [address] [place] [address] Care Team Providers Name Role Phone Elsewhere, Pcp Primary Care Provider Unavailable Reason for Visit Reason Comments External Lab Entry 02/28/2021 Encounter Details Date Type Department Care Team Description 03/01/2021 Clinical Curt Garces Transplant, Special Weapons Unit Officer al Lab Entry Communication Center for Coordinator, (02/28/2021) Transplantation and R.N. 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 [address] [place] [phone] 05/08/2022 Appointment Laboratory Medicine Angélica Granger P.ADemetrius-C. [address] [place] [phone] 05/08/2022 Clinical Admitting/Central Communication Scheduling 05/10/2022 Appointment Radiology Jeremie Rose M.D. [address] [place] [phone] 05/10/2022 Comprehensive Visit Orthopedic Surgery Warner Graves M.D. [address] [place] [phone] 05/22/2022 Appointment Laboratory Medicine Angélica Granger P.A.-CDemetrius [address] [place] [phone] 06/05/2022 Appointment Laboratory Medicine Angélica Granger P.A.-C. [address] [place] [phone] 06/19/2022 Appointment Laboratory Medicine Angélica Granger P.A.-C. [address] [place] [phone] 07/03/2022 Appointment Laboratory Medicine Angélica Granger P.A.-C. [address] [place] [phone] 07/17/2022 Appointment Laboratory Medicine Angélica Granger P.A.-C. [address] [place] [phone] 07/31/2022 Appointment Laboratory Medicine Angélica Granger P.A.-C. [address] [place] [phone] 08/14/2022 Appointment Laboratory Medicine Angélica Granger P.A.-C. [address] [place] [phone] 08/28/2022 Appointment Laboratory Medicine Angélica Granger P.A.-C. [address] [place] [phone] documented as of this encounter Procedures Procedure Name Priority Date/Time Associated Diagnosis Comme nts EXTP Routine 02/28/2021 10:11 AM Results for this TRANSPLANT/LIVER - CDT procedure are in BLOOD, EXTERNAL LAB the resu lts RESULTS section. EXTP Routine 02/28/2021 10:11 AM Results for this TRANSPLANT/LIVER - CDT procedure are in BLOOD, EXTERNAL LAB the resu lts RESULTS section. documented in this encounter Results Transplant/Liver - Blood, External Lab Results (02/28/2021 10:11 AM CDT) P athologist Signature EXT Tacrolimus Comment: <2.0 ng/mL Specimen (Source) Anatomical Collection Method Collection Time Re ceived Time Location / / Volume Laterality Blood 02/28/2021 10:11 AM CDT Narrative This result has an attachment that is no t available. Historical Provider LAB BLOOD NON ADD-ON Transplant/Liver - Blood, External Lab Results (02/28/2021 10:11 AM CDT) P athologist Signature EXT Glucose 107 EXT BUN (Blood 61 Urea Nitrogen) EXT Creatinine 3.69 mg/dL EXT Sodium 136 mmol/L EXT Potassium 3.9 EXT Alkaline 91 Phosphatase EXT AST 24 EXT ALT 19 EXT Bilirubin, 0.4 mg/dL Total Specimen (Source) Anatomical Collection Method Collection Time Re ceived Time Location / / Volume Laterality Blood 02/28/2021 10:11 AM CDT Narrative This result has an attachment that is no t available. Historical Provider LAB BLOOD NON ADD-ON documented in this encounter Visit Diagnoses Not on filedocumented in this encounter Additional Health Concerns Assessment Noted Time PHQ-9 Depression Total Score: 4 11/28/2020 10:17 AM CD T documented as of this encounter Care Teams Ncr Operator Relationship Specialty Start Date End Date Elsewhere, Pcp PCP - General Family Medicine 07/29/17 [facility] - Laboratory Medicine 04/12/[address] [address] documented as of this encounter
--- OUTSIDE RECORDS SUMMARY | 2022-04-13 12:15 | XMS_ITS | Encounter Summary ---
:1955 Author Organization [facility] Address [address] [place] [address] Care Team Providers Name Role Phone Elsewhere, Pcp Primary Care Provider Unavailable Encounter Details Date Type Department Care Team Description 03/12/2021 Hospital Encounter Department of Eve Garcia Kidney Laboratory Medicine RAMONA Draper, C.N.PDemetrius, Dise ase Stage 4 in Louie HartNJuan Miguel Glomerular [place] [address] [facility] Filtration Rate [address] [address] [place], [place] 15[address]29 ([facility]) [address] [address] [place], [place] [phone] [address] (Work) [phone] Social History Tobacco Use Types Packs/Day Years [...] at Date Recorded 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 Medication Therapy Pediatric Allergist Not Anticoagulant sodium chloride USE 4 ML VIA 0 08/30/2020 021 (NEBUSAL) 3 % nebulizer NEBULIZER TWICE solution DAILY Spiriva Respimat 2.5 INHALE 2 PUFFS BY 4 g 0 01/09/20 21 07/26/2021 mcg/actuation inhaler MOUTH DAILY tacrolimus (PROGRAF) Take 2 capsules (1 360 capsule 3 202007/16/2021 0.5 mg mg total) by mouth 2 capsuleIndications: (two) times a day. Transplant Liver (HCC), Medication Therapy Pediatric Allergist Not Anticoagulant torsemide (DEMADEX) 10 Take 3 [...] Laboratory Medicine Angélica Granger P.A.-C. [address] [place] [address] 04/25/2022 Office Visit Otorhinolaryngology Dex Matta APRN C.NDemetriusP., M.S.N. [address] [place] [phone] 05/08/2022 Appointment Laboratory Medicine Angélica Granger P.A.-C. [address] [place] [phone] 05/08/2022 Clinical Admitting/Central Communication Scheduling 05/10/2022 Appointment Radiology Jeremie Rose M.D. [address] [place] [phone] 05/10/2022 Comprehensive Visit Orthopedic Surgery Warner Graves M.D. [address] [place] [phone] 05/22/2022 Appointment Laboratory Medicine Angélica Granger P.A.-C. [address] [place] [address] [phone] 06/05/2022 Appointment Laboratory Medicine Angélica Granger P.A.-C. [address] [place] [phone] 06/19/2022 Appointment Laboratory Medicine Angélica Granger P.A.-C. [address] [place] [phone] 07/03/2022 Appointment Laboratory Medicine Angélica Granger P.A.-C. [address] [place] [phone] 07/17/2022 Appointment Laboratory Medicine Angélica Granger P.A.-C. [address] [place] [phone] 07/31/2022 Appointment Laboratory Medicine Angélica Granger P.A.-C. [address] [place] [phone] 08/14/2022 Appointment Laboratory Medicine Angélica Granger P.A.-C. [address] [place] [phone] 08/28/2022 Appointment Laboratory Medicine Angélica Granger P.A.-C. [address] [place] [phone] documented as of this encounter Procedures Procedure Name Priority Date/Time Associated Comments Diagnosis RENAL FUNCTION PANEL, Routine 03/12/2021 7:52 AM Chronic Kidne y Results for this S CDT Disease Stage 4 procedure ar e in Glomerular the results Filtration Rate section. ([facility]) CYSTATIN C WITH EGFR Routine 03/12/2021 7:52 AM Chronic Kidney Results for this CDT Disease Stage 4 procedure ar e in Glomerular the results Filtration Rate section. ([facility]) IRON AND TOT Routine 03/12/2021 7:52 AM Chronic Kidney Results for this IRON-BINDING CDT Disease Stage 4 procedure ar e in CAPACITY, S/P Glomerular the results Filtration Rate section. () CBC WITHOUT Routine 03/12/2021 7:52 AM Chronic Kidney Results for this DIFFERENTIAL, B CDT Disease Stage 4 procedure are in Glomerular the results Filtration Rate section. ([facility]) PARATHYROID HORMONE Routine 03/12/2021 7:52 AM Chronic Kidney Results for this (PTH), S CDT Disease Stage 4 procedure ar e in Glomerular the results Filtration Rate section. ([facility]) FERRITIN, S Routine 03/12/2021 7:52 AM Chronic Kidney Results for this CDT Disease Stage 4 procedure ar e in Glomerular the results Filtration Rate section. ([facility]) documented in this encounter Results Ferritin (03/12/2021 7:52 AM CDT) P athologist Signature Ferritin, S 389 31 - 409 03/12/2021 RDWG mcg/L 2:11 PM CDT Comment: Biotin has been identified by the [facility] as a potential interfering substance. ??Higher concentr ations of biotin may be found in multivitamins, hair/nail supple ments, and workout supplements. ??If the result does not ma h clinical observations, repeat testing after patient refrains fr om the use of supplements for at least 12 hours. Specimen Anatomical Collection Method Collection Time Receive d Time (Source) Location / / Volume Laterality Blood (Blood, 03/12/2021 7:52 AM 03/12/20 1:34 Venous) CDT PM CDT Eve Garcia APRN, C.N.P., D.N.P. LAB BLOOD ADD- ON Performing Organization Address City/State/ZIP Code Phon e Number [facility]- [address] [place], [place] [address] [place] [address] System in [place] [address] (ABNORMAL) Iron and Total Iron-Binding Capacity (03/12/2021 [...] Laterality Blood (Blood, 03/12/2021 7:52 AM 03/12/20 21 1:34 Venous) CDT PM CDT Eve Garcia APRN, C.N.P., D.N.P. LAB BLOOD ADD- ON Performing Organization Address City/State/ZIP Code Phon e Number [facility]- [address] [place], [place] [address] [place] [address] System in [place] [address] (ABNORMAL) Cystatin C with Estimated GFR, S (03/12/2021 7:52 AM CDT) athologist Signature eGFR by 9 (L) >60 03/13/2021 DT Cystatin C mL/min/BSA 8:23 AM CDT Comment: [...] 7:49 Venous) CDT AM CDT Eve Garcia APRN, C.N.P., D.N.P. LAB BLOOD ADD- ON Performing Organization Address City/State/ZIP Code Phon e Number [facility] - [address] [place], [place] [address] [place] [address] Laboratories-[facility] [address] (ABNORMAL) Parathyroid Hormone (PTH) (03/12/2021 7:52 AM CDT) athologist Signature Parathyroid 67 (H) 15 - 65 03/12/2021 [facility] Hormone (PTH), S pg/mL 2:11 PM CDT Comment: Biotin has been identified by the [facility] as a potential interfering substance. ??Higher concentr ations of biotin may be found in multivitamins, hair/nail supple ments, and workout supplements. ??If the result does not ma [facility] clinical observations, repeat testing after patient refrains fr om the use of supplements for at least 12 hours. Specimen Anatomical Collection Method Collection Time Receive d Time (Source) Location / / Volume Laterality Blood (Blood, 03/12/2021 7:52 AM 03/12/20 1:34 Venous) CDT PM CDT Arley Velasquez APRN.N.PDemetrius, D.N.P. LAB BLOOD ADD- ON Performing Organization Address City/State/ZIP Code Phon e Number [facility]- [address] [place] [address] [facility] [place] [address] System in [place] 701 [facility] (ABNORMAL) Renal Function Panel (03/12/2021 7:52 AM [...] eGFR-Black/Afri 21 (L) >=60 03/12/2021 CNFL can [place] mL/min/BSA 8:47 AM CDT Comment: ----ADDITIONAL INFORMATION---- Estimated GFR calculated using the 2009 CKD_EPI creatinine equation. eGFR Non-Black/ 18 (L) >=60 mL/min/BSA 03/12/2021 8:47 AM CDT CNFL [place] Comment: ----ADDITIONAL INFORMATION---- Estimated GFR calculated using [...] LAB BLOOD ADD- ON Performing Organization Address City/State/[facility] Code Phon e Number [address] [address] [place] [address] System in [address] (ABNORMAL) CBC without Differential (03/12/2021 7:52 AM CDT) [facility] gist Method Time Signature Hemoglobin 7.9 [...] 03/12/20 7:54 Venous) CDT AM CDT Eve Garcia APRN C.N.P., D.N.P. LAB BLOOD ADD- ON Performing Organization Address City/State/ZIP Code Phon e Number [facility]- [address] [place] [address] [place] [address] System in [address] documented in this encounter Visit Diagnoses Diagnosis Chronic Kidney Disease Stage 4 Glomerula r Filtration Rate 15-29 (HCC) documented in this encounter Additional Health Concerns Assessment Noted Time PHQ-9 Depression Total Score: 4 11/28/2020 10:17 AM CD T documented as of this encounter Care Teams Applications Analyst Relationship Specialty Start Date End Date Elsewhere, Pcp PCP - General Family Medicine 07/29/17 [facility] - Laboratory Medicine 04/12/20 [place] [id number] documented as of this encounter
--- OUTSIDE RECORDS SUMMARY | 2022-04-13 12:15 | XMS_ITS | Encounter Summary ---
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 He wants to know if he can add Mucinex or Sudafed or both to his current nasal rinsing with Azelastine. Would either (mucinex or sudafed) help with his nasal drainage and can he take them both at the same time. He wanted you to know that he does take Robitussin DM for coughing on occasion. Last seen: 01/08/2021 Diagnosis: #1 Rhinosinusitis Chronic #2 Cough #3 Post Nasal Drip He would like a call back or a portal message with the answer. His best number [phone]. Thank you, Kathryn documented in this encounter Plan of Treatment Upcoming Encounters Date Type Specialty Care Team Description 04/24/2022 Appointment Laboratory Medicine Angélica Granger P.A.-C. [address] [place] [phone] 04/25/2022 Office Visit Otorhinolaryngology Dex Matta, RAMONA, C.N.P., M.S.N. [address] [place] [phone] 05/08/2022 Appointment Laboratory Medicine Angélica Granger P.A.-C. [address] [place] [phone] 05/08/2022 Clinical Admitting/Central Communication Scheduling 05/10/2022 Appointment Radiology Jeremie Rose M.D. [address] [place] [phone] 05/10/2022 Comprehensive Visit Orthopedic Surgery Wanrer Graves M.D. [address] [place] [phone] 05/22/2022 Appointment Laboratory Medicine Angélica Granger P.A.-C. [address] [place] [phone] 06/05/2022 Appointment Laboratory Medicine Angélica Granger P.A.-C. [address] [place] [phone] 06/19/2022 Appointment Laboratory Medicine Angélica Granger P.A.-C. [address] [place] [phone] 07/03/2022 Appointment Laboratory Medicine Angélica Granger P.A.-C. [address] [place] [phone] 07/17/2022 Appointment Laboratory Medicine Angélica Granger P.A.-C. [address] [place] [phone] 07/31/2022 Appointment Laboratory Medicine Angélica Granger P.A.-C. [address] [place] [address] 08/14/2022 Appointment Laboratory Medicine Angélica Granger P.A.-C. [address] [place] [address] 08/28/2022 Appointment Laboratory Medicine Angélica Granger P.A.-C. [address] [place] [address] documented as of this encounter Visit Diagnoses Not on filedocumented in this encounter Additional Health Concerns Assessment Noted Time PHQ-9 Depression Total Score: 4 11/28/2020 10:17 AM CD T documented as of this encounter Care Teams Investment Consultant Relationship Specialty Start Date End Date Elsewhere, Pcp PCP - General Family Medicine 07/29/17 [facility] - Laboratory Medicine 04/12/[address] [address] documented as of this encounter
--- OUTSIDE RECORDS SUMMARY | 2022-04-13 12:15 | XMS_ITS | Encounter Summary ---
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 - 01/18/2021 11:59 AM CDT SUBJECTIVE CHIEF COMPLAINT / REASON FOR CALL Follow-up Information Discussed I left a message with the patient to call back if he was unable to get his Aranesp injection today or if he had other questions or concerns. documented in this encounter Plan of Treatment Upcoming Encounters Date Type Specialty Care Team Description 04/24/2022 Appointment Laboratory Medicine Angélica Granger P.A.-C. [address] [place] [phone] 04/25/2022 Office Visit Otorhinolaryngology Dex Matta APRN, C.N.P., M.S.N. [address] [place] [phone] 05/08/2022 Appointment Laboratory Medicine Angélica Granger P.A.-C. [address] [place] [phone] 05/08/2022 Clinical Admitting/Central Communication Scheduling 05/10/2022 Appointment Radiology Jeremie Rose M.D. [address] [place] [phone] 05/10/2022 Comprehensive Visit Orthopedic Surgery Warner Graves M.D. [address] [place] [phone] 05/22/2022 Appointment Laboratory Medicine Angélica Granger P.A.-C. [address] [place] [phone] 06/05/2022 Appointment Laboratory Medicine Angélica Granger P.A.-C. [address] [place] [phone] 06/19/2022 Appointment Laboratory Medicine Angélica Granger P.A.-C. [address] [place] [phone] 07/03/2022 Appointment Laboratory Medicine Angélica Granger P.A.-C. [address] [place] [phone] 07/17/2022 Appointment Laboratory Medicine Angélica Granger P.A.-C. [address] [place] [phone] 07/31/2022 Appointment Laboratory Medicine Angélica Granger P.A.-C. [address] [place] [phone] 08/14/2022 Appointment Laboratory Medicine Angélica Granger P.A.-C. [address] [place] [phone] 08/28/2022 Appointment Laboratory Medicine Angélica Granger P.A.-C. [address] [place] [phone] documented as of this encounter Visit Diagnoses Not on filedocumented in this encounter Additional Health Concerns Assessment Noted Time PHQ-9 Depression Total Score: 4 11/28/2020 10:17 AM CD T documented as of this encounter Care Teams Materials Inspector Relationship Specialty Start Date End Date Elsewhere, Pcp PCP - General Family Medicine 07/29/17 [facility] - Laboratory Medicine 04/12/[address] [address] documented as of this encounter
--- OUTSIDE RECORDS SUMMARY | 2022-04-13 12:15 | XMS_ITS | Encounter Summary ---
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 [address] [place] [phone] 04/25/2022 Office Visit Otorhinolaryngology Dex Matta APRN, C.N.P., M.S.N. [address] [place] [phone] 05/08/2022 Appointment Laboratory Medicine Angélica Granger P.A.-C. [address] [place] [phone] 05/08/2022 Clinical Admitting/Central Communication Scheduling 05/10/2022 Appointment Radiology Jeremie Rose M.D. [address] [place] [phone] 05/10/2022 Comprehensive Visit Orthopedic Surgery Warner Graves M.D. [address] [place] [phone] 05/22/2022 Appointment Laboratory Medicine Angélica Granger P.A.-C. [address] [place] [phone] 06/05/2022 Appointment Laboratory Medicine Angélica Granger P.A.-C. [address] [place] [phone] 06/19/2022 Appointment Laboratory Medicine Angélica Granger P.A.-C. [address] [place] [phone] 07/03/2022 Appointment Laboratory Medicine Angélica Granger P.A.-C. [address] [place] [phone] 07/17/2022 Appointment Laboratory Medicine Angélica Granger P.A.-C. [address] [place] [phone] 07/31/2022 Appointment Laboratory Medicine Angélica Granger P.A.-C. [address] [place] [phone] 08/14/2022 Appointment Laboratory Medicine Angélica Granger P.A.-C. [address] [place] [phone] 08/28/2022 Appointment Laboratory Medicine Angélica Granger P.A.-C. [address] [place] [phone] documented as of this encounter Visit Diagnoses Not on filedocumented in this encounter Additional Health Concerns Assessment Noted Time PHQ-9 Depression Total Score: 4 11/28/2020 10:17 AM CD T documented as of this encounter Care Teams Fusing Machine Operator Relationship Specialty Start Date End Date Elsewhere, Pcp PCP - General Family Medicine 07/29/17 [facility] - Laboratory Medicine 04/12/[address] [address] documented as of this encounter
--- OUTSIDE RECORDS SUMMARY | 2022-04-13 12:15 | XMS_ITS | Encounter Summary ---
:1955 Author Organization [facility] Address [address] [place] [address] Care Team Providers Name Role Phone Elsewhere, Pcp Primary Care Provider Unavailable Reason for Visit Reason Comments Med Refill Encounter Details Date Type Department Care Team Description 02/22/2021 Refill Division of Nephrology and Ursula Rey, RDemetriusN. 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 [address] [place] [phone] 04/25/2022 Office Visit Otorhinolaryngology Dex Matta, RAMONA, C.N.P., M.S.N. [address] [place] [phone] 05/08/2022 Appointment Laboratory Medicine Angélica Granger P.A.-CDemetrius [address] [place] [phone] 05/08/2022 Clinical Admitting/Central Communication Scheduling 05/10/2022 Appointment Radiology Jeremie Rose M.D. [address] [place] [phone] 05/10/2022 Comprehensive Visit Orthopedic Surgery Warner Graves M.D. [address] [place] [phone] 05/22/2022 Appointment Laboratory Medicine Angélica Granger P.A.-C. [address] [place] [phone] 06/05/2022 Appointment Laboratory Medicine Angélica Granger P.A.-C. [address] [place] [phone] 06/19/2022 Appointment Laboratory Medicine Angélica Granger P.A.-C. [address] [place] [phone] 07/03/2022 Appointment Laboratory Medicine Angélica Granger P.A.-C. [address] [place] [phone] 07/17/2022 Appointment Laboratory Angélica Royal P.A.-C. [address] [place] [phone] 07/31/2022 Appointment Laboratory Medicine Angélica Granger P.A.-C. [address] [place] [phone] 08/14/2022 Appointment Laboratory Angélica Royal P.A.-C. [address] [place] [phone] 08/28/2022 Appointment Laboratory Medicine Angélica Granger P.A.-C. [address] [place] [phone] documented as of this encounter Visit Diagnoses Not on filedocumented in this encounter Additional Health Concerns Assessment Noted Time PHQ-9 Depression Total Score: 4 11/28/2020 10:17 AM CD T documented as of this encounter Care Teams Parasitology Teacher Relationship Specialty Start Date End Date Elsewhere, Pcp PCP - General Family Medicine 07/29/17 [facility] Laboratory Medicine 04/12/20 [place] [phone] documented as of this encounter
--- OUTSIDE RECORDS SUMMARY | 2022-04-13 12:15 | XMS_ITS | Encounter Summary ---
:1955 Author Organization [facility] Address [address] [place] [address] Care Team Providers Name Role Phone Elsewhere, Pcp Primary Care Provider Unavailable Reason for Referral Specialty Diagnoses / Procedures Referred By Contact Refer red To Contact Yolie Krishna M.D. [facility] Region [address] [place] [phone] Referral ID Status Reason Start Date Expiration Date Visits Requ ested Visits Authorized Encounter Details Date Type Department Care Team Description 02/06/2021 Orders Only [facility] SEMN PCP [facility] Sa nikolay Kirshna M.D. 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 [address] [place] [phone] 04/25/2022 Office Visit Otorhinolaryngology Dex Matta, RAMONA, C.N.P., M.S.N. [address] [place] [phone] 05/08/2022 Appointment Laboratory Medicine Angélica Granger P.A.-C. [address] [place] [phone] 05/08/2022 Clinical Admitting/Central Communication Scheduling 05/10/2022 Appointment Radiology Jeremie Rose M.D. [address] [place] [phone] 05/10/2022 Comprehensive Visit Orthopedic Surgery Warner Graves M.D. [address] [place] [phone] 05/22/2022 Appointment Laboratory Medicine Angélica Granger P.A.-C. [address] [place] [phone] 06/05/2022 Appointment Laboratory Medicine Angélica Granger P.A.-C. [address] [place] [phone] 06/19/2022 Appointment Laboratory Medicine Angélica Granger P.A.-C. [address] [place] [phone] 07/03/2022 Appointment Laboratory Medicine Angélica Granger P.A.-C. [address] [place] [phone] 07/17/2022 Appointment Laboratory Angélica Royal P.A.-C. [address] [place] [phone] 07/31/2022 Appointment Laboratory Medicine Angélica Granger P.A.-C. [address] [place] [phone] 08/14/2022 Appointment Laboratory Angélica Royal P.A.-C. [address] [place] [phone] 08/28/2022 Appointment Laboratory Medicine Angélica Granger P.A.-C. [address] [place] [phone] Scheduled Referrals Name Type Priority Associated Order Schedule Diagnoses Covid immunization Outpatient Referral Routine Ex pected: office visit Booster 021 (Approximate), Expires: 02/06/2022 documented as of this encounter Visit Diagnoses Not on filedocumented in this encounter Additional Health Concerns Assessment Noted Time PHQ-9 Depression Total Score: 4 11/28/2020 10:17 AM CD T documented as of this encounter Care Teams Juke Box Servicer Relationship Specialty Start Date End Date Elsewhere, Pcp PCP - General Family Medicine 07/29/17 [facility] - Laboratory Medicine 04/12/20 [place] [address] documented as of this encounter
--- OUTSIDE RECORDS SUMMARY | 2022-04-13 12:15 | XMS_ITS | Encounter Summary ---
:1955 Author Organization [facility] Address [address] [place] [address] Care Team Providers Name Role Phone Elsewhere, Pcp Primary Care Provider Unavailable Encounter Details Date Type Department Care Team Description 03/07/2021 Orders Only Curt Garces Javier, Gail Griffiths Kidney Disease; [facility] for M.D. 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 [address] [place] [phone] 04/25/2022 Office Visit Otorhinolaryngology Dex Matta, RAMONA, C.N.P., M.S.N. [address] [place] [phone] 05/08/2022 Appointment Laboratory Medicine Angélica Granger, P.A.-C. [address] [place] [phone] 05/08/2022 Clinical Admitting/Central Communication Scheduling 05/10/2022 Appointment Radiology Jeremie Rose M.D. [address] [place] [phone] 05/10/2022 Comprehensive Visit Orthopedic Surgery Warner Graves M.D. [address] [place] [phone] 05/22/2022 Appointment Laboratory Medicine Angélica Granger P.A.-C. [address] [place] [phone] 06/05/2022 Appointment Laboratory Medicine Angélica Granger P.A.-C. [address] [place] [phone] 06/19/2022 Appointment Laboratory Angélica Royal P.A.-C. [address] [place] [phone] 07/03/2022 Appointment Laboratory Angélica Royal P.A.-C. [address] [place] [phone] 07/17/2022 Appointment Laboratory Angélica Royal P.A.-C. [address] [place] [phone] 07/31/2022 Appointment Laboratory Angélica Royal P.A.-C. [address] [place] [phone] 08/14/2022 Appointment Laboratory Angélica Royal P.A.-C. [address] [place] [phone] 08/28/2022 Appointment Laboratory Angélica Royal P.A.-C. [address] [place] [phone] documented as of this encounter Visit Diagnoses Diagnosis Chronic Kidney Disease Pretransplant Recipient Evaluation Exam documented in this encounter Additional Health Concerns Assessment Noted Time PHQ-9 Depression Total Score: 4 11/28/2020 10:17 AM CD T documented as of this encounter Care Teams Statistical Modeler Relationship Specialty Start Date End Date Elsewhere, Pcp PCP - General Family Medicine 07/29/17 [facility] - Laboratory Medicine 04/12/20 [place] [address] documented as of this encounter
--- OUTSIDE RECORDS SUMMARY | 2022-04-13 12:15 | XMS_ITS | Encounter Summary ---
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 - 03/07/2021 9:18 AM CDT Noted thank you Telephone Encounter - Urusla Parkinson R.N. - 03/06/2021 11:40 AM CDT Images from the original note were not included. Mr. Singh was started on Aranesp 60 mcg monthly in December. Hemoglobin is 8.8 for February. documented in this encounter Plan of Treatment Upcoming Encounters Date Type Specialty Care Team Description 04/24/2022 Appointment Laboratory Medicine Angélica Granger P.A.-C. [address] [place] [phone] 04/25/2022 Office Visit Otorhinolaryngology Dex Matta APRN, C.N.PDemetrius, M.S.N. [address] [place] [phone] 05/08/2022 Appointment Laboratory Medicine Angélica Granger P.A.-C. [address] [place] [address] [phone] 05/08/2022 Clinical Admitting/Central Communication Scheduling 05/10/2022 Appointment Radiology Jeremie Rose M.D. [address] [place] [phone] 05/10/2022 Comprehensive Visit Orthopedic Surgery Warner Graves M.D. [address] [place] [phone] 05/22/2022 Appointment Laboratory Medicine Angélica Granger P.A.-C. [address] [place] [phone] 06/05/2022 Appointment Laboratory Medicine Angélica Granger P.A.-C. [address] [place] [phone] 06/19/2022 Appointment Laboratory Medicine Angélica Granger P.A.-C. [address] [place] [phone] 07/03/2022 Appointment Laboratory Medicine Angélica Granger P.A.-C. [address] [place] [phone] 07/17/2022 Appointment Laboratory Medicine Angélica Granger P.A.-C. [address] [place] [phone] 07/31/2022 Appointment Laboratory Medicine Angélica Granger P.A.-C. [address] [place] [phone] 08/14/2022 Appointment Laboratory Medicine Angélica Granger P.A.-C. [address] [place] [phone] 08/28/2022 Appointment Laboratory Medicine Angélica Granger P.A.-C. [address] [place] [phone] documented as of this encounter Visit Diagnoses Not on filedocumented in this encounter Additional Health Concerns Assessment Noted Time PHQ-9 Depression Total Score: 4 11/28/2020 10:17 AM CD T documented as of this encounter Care Teams Career Guidance Technician Relationship Specialty Start Date End Date Elsewhere, Pcp PCP - General Family Medicine 07/29/17 [facility] - Laboratory Medicine 04/12/[address] [address] documented as of this encounter
--- OUTSIDE RECORDS SUMMARY | 2022-04-13 12:15 | XMS_ITS | Encounter Summary ---
:1955 Author Organization [facility] Address [address] [place] [address] Care Team Providers Name Role Phone Elsewhere, Pcp Primary Care Provider Unavailable Reason for Visit Reason Comments needs torsemide RX Encounter Details Date Type Department Care Team Description 02/22/2021 Clinical Division of d'Uscio, needs torsemide RX Communication Nephrology and Eve Draper Hypertension in [facility] C.N.[place] D.N.P. 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 - 02/22/2021 12:17 PM CDT Renewed through prescription refill encounter. Telephone Encounter - Paige Gabriel - 02/22/2021 11:43 AM CDT Caller is: patient If not the patient, does the caller have authorization? Reason for call: Chief Complaint Patient presents with ??? needs torsemide RX Pertinent Information: Patient needs a new prescription for Torsemide 10 mg. He takes 30 mg per day. Preferred Communication Method: {patient mobile [phone]) [id number] [place] [id number] [address] [facility] 3 & [facility] [address]TH [facility] [phone] ?? Additional instructions: documented in this encounter Plan of Treatment Upcoming Encounters Date Type Specialty Care Team Description 04/24/2022 Appointment Laboratory Medicine Angélica Granger P.A.-C. [address] [place] [phone] 04/25/2022 Office Visit Otorhinolaryngology Dex Matta APRN CDemetriusNDemetriusPDemetrius, M.S.N. [address] [place] [phone] 05/08/2022 Appointment Laboratory Medicine Angélica Granger P.A.-C. [address] [place] [phone] 05/08/2022 Clinical Admitting/Central Communication Scheduling 05/10/2022 Appointment Radiology Jeremie Rose M.D. [address] [place] [phone] 05/10/2022 Comprehensive Visit Orthopedic Surgery Warner Graves M.D. [address] [place] [phone] 05/22/2022 Appointment Laboratory Medicine Angélica Granger P.A.-C. [address] [place] [phone] 06/05/2022 Appointment Laboratory Medicine Angélica Granger P.A.-C. [address] [place] [phone] 06/19/2022 Appointment Laboratory Medicine Angélica Granger P.A.-C. [address] [place] [phone] 07/03/2022 Appointment Laboratory Medicine Angélica Granger P.A.-C. [address] [place] [phone] 07/17/2022 Appointment Laboratory Medicine Angélica Granger P.A.-C. [address] [place] [phone] 07/31/2022 Appointment Laboratory Medicine Angélica Granger P.A.-C. [address] [place] [phone] 08/14/2022 Appointment Laboratory Medicine Angélica Granger P.A.-C. [address] [place] [phone] 08/28/2022 Appointment Laboratory Medicine Angélica Granger P.A.-C. [address] [place] [phone] documented as of this encounter Visit Diagnoses Not on filedocumented in this encounter Additional Health Concerns Assessment Noted Time PHQ-9 Depression Total Score: 4 11/28/2020 10:17 AM CD T documented as of this encounter Care Teams Glue Bone Drier Relationship Specialty Start Date End Date Elsewhere, Pcp PCP - General Family Medicine 07/29/17 [facility] - Laboratory Medicine 04/12/[address] [address] documented as of this encounter
[2022-04-13 12:16] LABS: Blood Urea Nitrogen* 25 mg/dL (7-30); Calcium* 9.3 mg/dL (8.4-10.6); Glucose* 128 mg/dL (60-115); Slide Review Reflex Yes
--- OUTSIDE RECORDS SUMMARY | 2022-04-13 12:16 | XMS_ITS | Encounter Summary ---
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 [address] [place] [phone] 05/08/2022 Appointment Laboratory Medicine Angélica Granger P.A.-CDemetrius [address] [place] [address] [phone] 05/08/2022 Clinical Admitting/Central Communication Scheduling 05/10/2022 Appointment Radiology Jeremie Rose M.D. [address] [place] [phone] 05/10/2022 Comprehensive Visit Orthopedic Surgery Warner Graves M.D. [address] [place] [phone] 05/22/2022 Appointment Laboratory Medicine Angélica Granger P.A.-CDemetrius [address] [place] [address] [phone] 06/05/2022 Appointment Laboratory Medicine Angélica Granger P.A.-C. [address] [place] [phone] 06/19/2022 Appointment Laboratory Medicine Angélica Granger P.A.-C. [address] [place] [phone] 07/03/2022 Appointment Laboratory Medicine Angélica Granger P.A.-C. [address] [place] [phone] 07/17/2022 Appointment Laboratory Medicine Angélica Granger P.A.-C. [address] [place] [phone] 07/31/2022 Appointment Laboratory Medicine Angélica Granger P.A.-C. [address] [place] [phone] 08/14/2022 Appointment Laboratory Medicine Angélica Granger P.A.-C. [address] [place] [phone] 08/28/2022 Appointment Laboratory Medicine Angélica Granger P.A.-C. [address] [place] [phone] documented as of this encounter Visit Diagnoses Not on filedocumented in this encounter Additional Health Concerns Infection Onset Date Last Indicated Resolved Time COVID19 Pending 01/04/2021 01/04/2021 01/04/2021 9:44 PM CDT Assessment Noted Time PHQ-9 Depression Total Score: 4 11/28/2020 10:17 AM CD T documented as of this encounter Care Teams Croze Cutter Helper Relationship Specialty Start Date End Date Elsewhere, Pcp PCP - General Family Medicine 07/29/17 [facility] - Laboratory Medicine 04/12/[address] [address] documented as of this encounter
--- OUTSIDE RECORDS SUMMARY | 2022-04-13 12:16 | XMS_ITS | Encounter Summary ---
:1955 Author Organization [facility] Address [address] [place] [address] Care Team Providers Name Role Phone Elsewhere, Pcp Primary Care Provider Unavailable Encounter Details Date Type Department Care Team Description 01/09/2021 Orders Only Division of Nephrology and Padmini Barry Hypertension in [facility], JUNIOR ORACLE DBA, C.N.P ., [place] D.N.P. 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 [address] [place] [phone] 04/25/2022 Office Visit Otorhinolaryngology Dex Matta, RAMONA, C.N.P., M.S.N. [address] [place] [phone] 05/08/2022 Appointment Laboratory Medicine Angélica Granger P.A.-CDemetrius [address] [place] [phone] 05/08/2022 Clinical Admitting/Central Communication Scheduling 05/10/2022 Appointment Radiology Jreemie Rose M.D. [address] [place] [phone] 05/10/2022 Comprehensive Visit Orthopedic Surgery Warner Graves M.D. [address] [place] [phone] 05/22/2022 Appointment Laboratory Medicine Angélica Granger P.A.-C. [address] [place] [address] [phone] 06/05/2022 Appointment Laboratory Medicine Angélica Granger P.A.-C. [address] [place] [phone] 06/19/2022 Appointment Laboratory Medicine Angélica Granger P.A.-C. [address] [place] [phone] 07/03/2022 Appointment Laboratory Medicine Angélica Granger P.A.-C. [address] [place] [phone] 07/17/2022 Appointment Laboratory Medicine Angélica Granger P.A.-C. [address] [place] [phone] 07/31/2022 Appointment Laboratory Medicine Angélica Granger P.A.-C. [address] [place] [phone] 08/14/2022 Appointment Laboratory Medicine Angélica Granger P.A.-C. [address] [place] [phone] 08/28/2022 Appointment Laboratory Medicine Angélica Granger P.A.-C. [address] [place] [phone] documented as of this encounter Visit Diagnoses Not on filedocumented in this encounter Additional Health Concerns Assessment Noted Time PHQ-9 Depression Total Score: 4 11/28/2020 10:17 AM CD T documented as of this encounter Care Teams Personal Computer Network Engineer Relationship Specialty Start Date End Date Elsewhere, Pcp PCP - General Family Medicine 07/29/17 [facility] - Laboratory Medicine 04/12/[address] [address] documented as of this encounter
--- OUTSIDE RECORDS SUMMARY | 2022-04-13 12:16 | XMS_ITS | Encounter Summary ---
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 [address] [place] [phone] 04/25/2022 Office Visit Otorhinolaryngology Dex Matta APRN, C.N.P., M.S.N. [address] [place] [phone] 05/08/2022 Appointment Laboratory Medicine Angélica Granger, P.A.-C. [address] [place] [phone] 05/08/2022 Clinical Admitting/Central Communication Scheduling 05/10/2022 Appointment Radiology Jeremie Rose M.D. [address] [place] [phone] 05/10/2022 Comprehensive Visit Orthopedic Surgery Warner Graves M.D. [address] [place] [phone] 05/22/2022 Appointment Laboratory Medicine GunAngélica wilcox P.A.-C. [address] [place] [phone] 06/05/2022 Appointment Laboratory Medicine Angélica Granger P.A.-C. [address] [place] [phone] 06/19/2022 Appointment Laboratory Medicine Angélica Granger P.A.-C. [address] [place] [phone] 07/03/2022 Appointment Laboratory Angélica Royal P.A.-C. [address] [place] [phone] 07/17/2022 Appointment Laboratory Angélica Royal P.A.-C. [address] [place] [phone] 07/31/2022 Appointment Laboratory Medicine Angélica Granger P.A.-C. [address] [place] [phone] 08/14/2022 Appointment Laboratory Angélica Royal P.A.-C. [address] [place] [address] [phone] 08/28/2022 Appointment Laboratory Angélica Royal P.A.-C. [address] [place] [phone] documented as of this encounter Visit Diagnoses Not on filedocumented in this encounter Additional Health Concerns Assessment Noted Time PHQ-9 Depression Total Score: 4 11/28/2020 10:17 AM CD T documented as of this encounter Care Teams Director Of Infection Control Relationship Specialty Start Date End Date Elsewhere, Pcp PCP - General Family Medicine 07/29/17 [facility] - Laboratory Medicine 04/12/20 [place] [address] documented as of this encounter
--- OUTSIDE RECORDS SUMMARY | 2022-04-13 12:16 | XMS_ITS | Encounter Summary ---
:1955 Author Organization [facility] Address [address] [place] [address] Care Team Providers Name Role Phone Elsewhere, Pcp Primary Care Provider Unavailable Reason for Visit Reason Comments SHERIDAN Nurse Line Encounter Details Date Type Department Care Team Description 01/04/2021 Clinical Communication Division of OelweinSHERIDAN Nurse Makay[facility] Internal Dorene Hamlin [facility] [phone] [place], in (Work) [place], [place] [address] [place] [address] Social History Tobacco Use Types Packs/Day Years [...] at Date Recorded Male 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 - 01/04/2021 8:23 AM CDT COVID-19 Nurse Line Screening ASSESSMENT Patient calling to set up COVID testing as he has an upcoming appointment Friday with [facility] and would like a COVID test prior. Patient has been experiencing a cough for over a year and shortness ofbreath with activitiy which is not new. Over the last few days patient has had a fever and chills. Patient believes he has a lung infection. Patient also noted that he had COVID in October and also received the antibody infusion after. Patientis also fully vaccinated for COVID. Region Select appropriate region: : Maiden Age Pathway Select approprite pathway: : Adult Have you had close contact* with a person who has a LABORATORY CONFIRMED case of COVID-19 in the past 14 days?: No (Continue Screening) In the last 48 hours, have you had a fever* OR symptoms that are unrelated to a preexisting illness?: Fever, New chills, New repeated shaking with chills (Worsening congestion) Have you received a COVID-19 vaccine in the last 72 hours? : No vaccine received (Continue Screening) Do you have any of the following urgent symptoms?: No urgent symptoms noted (Continue Screening) Have you tested positive for COVID-19 in the last 45 days?: No (Continue Screening) Symptom Onset Date of symptom onset: 01/01/21 Testing Recommendation Endpoint Is testing recommended? : Recommended to test PLAN Endpoint recommendation: Screening positive, testing indicated, advised to be swabbed for COVID-19 Only , sent to [facility] located at [address] [place] [address]. The entrance is on the north side of the building. You must call [phone] during the hours of 7am to 6 pm (M-F) or 9 am to 4 pm (Sat and Sun) for an appointment time. You can also schedule via your Patient Online Services account. Testing hours are 8 am to 12 noon every day. When you arrive at the testing site: Remain in your vehicle and check-inby calling the number listed on the signage at the testing site or provided to you at the time you schedule your testing appointment. and Please avoid using public transportation per CDC recommendation. If you do not have personal transportation please self- quarantine until a personal transportation option is available. Standard Care Points -Get a COVID -19 vaccine as soon as you can if not fully vaccinated. -Wash hands frequently with soap and water, use hand construction millwright if soap and water aren't available. -Wear a mask over your nose and mouth to help protect yourself and others if not fully vaccinated and having no symptoms -Stay 6 feet between yourself and others who don't live with you. -Avoid crowds and poorly ventilated indoor spaces. -Seek emergent care if any of the following occur Trouble breathing Bluish lips or face Persistent pain or pressure in the chest New confusion or inability to rouse. -Notify your regular care provider of any new or worsening symptoms. Symptomatic Carepoints: Stay home and separate yourself from others and stay in a specific sick room if able. Avoid sharing personal or household items. Rest. Hydrate. Take Acetaminophen/Ibuprofen asneeded to control fever and muscles aches. Use over the counter medications as needed for other symptoms. Gargle with 8 ounces of warm salt water several times a day for throat discomfort (1/4 tsp regular salt to 8 ounces or 1 cup warm water). Do not swallow the salt water. Throat lozenges will help keep the throat lubricated. Hard candy, lollipops, and throat lozenges are equally effective. Use a humidifier. If you have received a negative COVID-19 test result and continue to have new or worsening symptoms after 72 hours please call the COVID Nurse Line to assess if you need repeat testing or reach out to your Primary Care Provider for guidance. Education: Patient/caregiver able to teach back Patient agreeable to plan of care: Yes The following references were used: [facility] novel coronavirus (COVID- 19) resources CDC web site https://www.cdc.gov/coronavirus/2019-ncov/summary.html Nursing judgement documented in this encounter Plan of Treatment Upcoming Encounters Date Type Specialty Care Team Description 04/24/2022 Appointment Laboratory Medicine Angélica Granger P.A.-C. [address] [place] [phone] 04/25/2022 Office Visit Otorhinolaryngology Dex Matta APRN, C.N.P., M.S.N. [address] [place] [phone] 05/08/2022 Appointment Laboratory Medicine Angélica Granger P.A.-Janette [address] [place] [phone] 05/08/2022 Clinical Admitting/Central Communication Scheduling 05/10/2022 Appointment Radiology Jeremie Rose M.D. [address] [place] [phone] 05/10/2022 Comprehensive Visit Orthopedic Surgery Warner Graves M.D. [address] [place] [phone] 05/22/2022 Appointment Laboratory Medicine Angélica Granger P.A.-CDemetrius [address] [place] [phone] 06/05/2022 Appointment Laboratory Medicine Angélica Granger P.A.-CDemetrius [address] [place] [phone] 06/19/2022 Appointment Laboratory Medicine Angélica Granger P.A.-C. [address] [place] [phone] 07/03/2022 Appointment Laboratory Medicine Angélica Granger P.A.-C. [address] [place] [address] [phone] 07/17/2022 Appointment Laboratory Medicine Angélica Granger P.A.-C. [address] [place] [address] [phone] 07/31/2022 Appointment Laboratory Medicine Angélica Granger P.A.-C. [address] [place] [phone] 08/14/2022 Appointment Laboratory Medicine Angélica Granger P.A.-C. [address] [place] [address] [phone] 08/28/2022 Appointment Laboratory Medicine Angélica Granger P.A.-C. [address] [place] [phone] documented as of this encounter Visit Diagnoses Not on filedocumented in this encounter Additional Health Concerns Assessment Noted Time PHQ-9 Depression Total Score: 4 11/28/2020 10:17 AM CD T documented as of this encounter Care Teams Chiseler Head Relationship Specialty Start Date End Date Elsewhere, Pcp PCP - General Family Medicine 07/29/17 [facility] - Laboratory Medicine 04/12/[address] [address] documented as of this encounter
--- OUTSIDE RECORDS SUMMARY | 2022-04-13 12:16 | XMS_ITS | Encounter Summary ---
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 : Transferred to nursing call line Plan: Endpoint recommendation: Transferred to Nursing/COVID Line/Care Team *Reminder if sending patient for testing in [facility] or [facility], route encounter to the correct testing pool. documented in this encounter Plan of Treatment Upcoming Encounters Date Type Specialty Care Team Description 04/24/2022 Appointment Laboratory Medicine Angélica Granger P.A.-Janette [address] [place] [phone] 04/25/2022 Office Visit Otorhinolaryngology Dex Matta APRN, C.N.P., M.S.N. [address] [place] [phone] 05/08/2022 Appointment Laboratory Medicine Angélica Granger P.A.-CDemetrius [address] [place] [address] [phone] 05/08/2022 Clinical Admitting/Central Communication Scheduling 05/10/2022 Appointment Radiology Jeremie Rose M.D. [address] [place] [phone] 05/10/2022 Comprehensive Visit Orthopedic Surgery Warner Graves M.D. [address] [place] [phone] 05/22/2022 Appointment Laboratory Medicine Angélica Granger P.A.-C. [address] [place] [phone] 06/05/2022 Appointment Laboratory Medicine Angélica Granger P.A.-C. [address] [place] [phone] 06/19/2022 Appointment Laboratory Medicine Angélica Granger P.A.-C. [address] [place] [phone] 07/03/2022 Appointment Laboratory Medicine Angélica Granger P.A.-C. [address] [place] [phone] 07/17/2022 Appointment Laboratory Medicine Angélica Granger P.A.-C. [address] [place] [phone] 07/31/2022 Appointment Laboratory Medicine Angélica Granger P.A.-C. [address] [place] [phone] 08/14/2022 Appointment Laboratory Medicine Angélica Granger P.A.-C. [address] [place] [phone] 08/28/2022 Appointment Laboratory Medicine Angélica Granger P.A.-C. [address] [place] [phone] documented as of this encounter Visit Diagnoses Not on filedocumented in this encounter Additional Health Concerns Assessment Noted Time PHQ-9 Depression Total Score: 4 11/28/2020 10:17 AM CD T documented as of this encounter Care Teams Riprap Man Relationship Specialty Start Date End Date Elsewhere, Pcp PCP - General Family Medicine 07/29/17 [facility] - Laboratory Medicine 04/12/[address] [address] documented as of this encounter
--- OUTSIDE RECORDS SUMMARY | 2022-04-13 12:16 | XMS_ITS | Encounter Summary ---
:1955 Author Organization [facility] Address [address] [place] [address] Care Team Providers Name Role Phone Elsewhere, Pcp Primary Care Provider Unavailable Reason for Visit Reason Onset Date Comments Testing For Upper Respiratory Virus Symptoms 01/04/2021 Encounter Details Date Type Department Care Team Description 01/04/2021 External Outreach Department of [facility] Mushtaq Salas Contact With And Medicine, Steven Stern D.O. (Suspected) Exposure Building, in [address] To COVID-19 ([place], [place] Dx) [address] 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 - 01/04/2021 9:30 AM CDT Encounter created for symptomatic infectious disease screening with possible COVID, Influenza, RSV, and/or Group A Strep testing. documented in this encounter Plan of Treatment Upcoming Encounters Date Type Specialty Care Team Description 04/24/2022 Appointment Laboratory Medicine Angélica Granger P.A.-C. [address] [place] [phone] 04/25/2022 Office Visit Otorhinolaryngology Dex Matta APRN, C.N.P., M.S.N. [address] [place] [phone] 05/08/2022 Appointment Laboratory Medicine Angélica Granger P.A.-C. [address] [place] [phone] 05/08/2022 Clinical Admitting/Central Communication Scheduling 05/10/2022 Appointment Radiology Jeremie Rose M.D. [address] [place] [phone] 05/10/2022 Comprehensive Visit Orthopedic Surgery Warner Graves M.D. [address] [place] [phone] 05/22/2022 Appointment Laboratory Medicine Angélica Granger P.A.-C. [address] [place] [phone] 06/05/2022 Appointment Laboratory Medicine Angélica Granger P.A.-C. [address] [place] [phone] 06/19/2022 Appointment Laboratory Medicine Angélica Granger P.A.-C. [address] [place] [phone] 07/03/2022 Appointment Laboratory Medicine Angélica Granger P.A.-C. [address] [place] [phone] 07/17/2022 Appointment Laboratory Medicine Angélica Granger P.A.-C. [address] [place] [phone] 07/31/2022 Appointment Laboratory Medicine Angélica Granger P.A.-C. [address] [place] [phone] 08/14/2022 Appointment Laboratory Medicine Angélica Granger P.A.-C. [address] [place] [phone] 08/28/2022 Appointment Laboratory Medicine EmilieAngélica wilcox Edmundo Stern [address] [place] [phone] documented as of this encounter Procedures Procedure Name Priority Date/Time Associated Diagnosis Comme nts SARS CORONAVIRUS-2 Routine 01/04/2021 9:39 AM Contact With And Results for this RNA, V CDT (Suspected) Exposure procedu re are in To COVID-19 the results section. documented in this encounter Results SARS Coronavirus-2 RNA, V Symptomatic (01/04/2021 9:39 AM CDT) [facility] Method Time Signature SARS-CoV-2 Swab, 01/04/2021 MKTO Specimen Nasopharynx 9:43 PM CDT Source SARS CoV-2 Undetected Undetected 01/04/2021 MKTO RNA, TMA 9:43 PM CDT Comment: SARS-CoV-2 RNA absent. This result does not rule out COVID-19 in the patient, as the sensitivity of the test depends o n the timing of the specimen collection and the quality of the specim en. Result should be correlated with patient's history and clinical presentat ion. ----ADDITIONAL INFORMATION---- This molecular amplification test was pe rformed using the Aptima SARS-CoV-2 assay ([employer] on the Moduslys tem under emergency use authorization (EUA) by the U.S. Food and Drug Administ ration. Fact sheets for this EUA assay can be fo und at the following links: For Healthcare Providers: https://www.fd a.gov/media/682541/download For Patients: https://www.fda.gov/media/ 640409/download Specimen Anatomical Collection Method Collection Time Receive d Time (Source) Location / / Volume Laterality Varies 01/04/2021 9:39 AM 3:15 (Nasopharynx) CDT PM CDT Mushtaq Salas D.O. LAB MICROBIOLOGY - GENERAL O RDERABLES Performing Organization Address City/State/ZIP Code Phon e Number [facility] [place] [address] [facility] [place] [address] [address] documented in this encounter Visit Diagnoses Diagnosis Contact With And (Suspected) Exposure To COVID-19 - Primary documented in this encounter Additional Health Concerns Infection Onset Date Last Indicated Resolved Time COVID19 Pending 01/04/2021 01/04/2021 01/04/2021 9:44 PM CDT Assessment Noted Time PHQ-9 Depression Total Score: 4 11/28/2020 10:17 AM CD T documented as of this encounter Care Teams Record Systems Analyst Relationship Specialty Start Date End Date Elsewhere, Pcp PCP - General Family Medicine 07/29/17 [facility] - Laboratory Medicine 04/12/20 [place] [address] documented as of this encounter
--- OUTSIDE RECORDS SUMMARY | 2022-04-13 12:16 | XMS_ITS | Encounter Summary ---
:1955 Author Organization [facility] Address [address] [place] [address] Care Team Providers Name Role Phone Elsewhere, Pcp Primary Care Provider Unavailable Reason for Visit Reason Comments Call from Infusion Center Encounter Details Date Type Department Care Team Description 01/10/2021 Clinical Communication [facility] from [facility] Nephrology and Milak Carver Hypertension in [facility] C.N.P.[place], [place] D.N.P. 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 [phone]. Telephone Encounter - Paige Elena - 01/15/2021 8:24 AM CDT Form received, forwarded to Padmini for signature. Telephone Encounter - Monica Lipscomb - 01/12/2021 3:25 PM CDT The infusion Center will be faxing a form that Padmini needs to fill out. Date to start, and how often. Thank you, Monica Telephone Encounter - Paige Elena - 01/12/2021 11:25 AM CDT The requested information was fax to [place] [facility] [phone]. Telephone Encounter - Padmini Barry APRN, C.N.P., D.N.P. - 01/12/2021 8:34 AM CDT CBC order placed. Telephone Encounter - Afshan Shoemaker - 01/10/2021 2:18 PM CDT Call from [facility] An order for Aranesp was faxed to them. This is a brand new patient for them, so they need several documents sent before they can administer: 1. Current Med List 2. Lab order to check Hemoglobin ?CBC- and details on how often this should reoccur w/ fax number tosend results to on the order 3. MD/Provider note with history/summary 4. Insurance info (I offered to give this verbally, but they would like it sent with everything else) # [phone] documented in this encounter Plan of Treatment Upcoming Encounters Date Type Specialty Care Team Description 04/24/2022 Appointment Laboratory Medicine Angélica Granger P.A.-C. [address] [place] [phone] 04/25/2022 Office Visit Otorhinolaryngology Dex Matta APRN, C.NJuan Miguel, M.S.N. [address] [place] [phone] 05/08/2022 Appointment Laboratory Medicine Angélica Granger P.A.-C. [address] [place] [phone] 05/08/2022 Clinical Admitting/Central Communication Scheduling 05/10/2022 Appointment Radiology Jeremie Rose M.D. [address] [place] [phone] 05/10/2022 Comprehensive Visit Orthopedic Surgery Warner Graves M.D. [address] [place] [phone] 05/22/2022 Appointment Laboratory Medicine Angélica Granger P.A.-C. [address] [place] [phone] 06/05/2022 Appointment Laboratory Medicine Angélica Granger P.A.-C. [address] [place] [phone] 06/19/2022 Appointment Laboratory Medicine Angélica Granger P.A.-C. [address] [place] [phone] 07/03/2022 Appointment Laboratory Medicine Angélica Granger P.A.-C. [address] [place] [phone] 07/17/2022 Appointment Laboratory Medicine Angélica Granger P.A.-C. [address] [place] [phone] 07/31/2022 Appointment Laboratory Medicine Angélica Granger P.A.-C. [address] [place] [phone] 08/14/2022 Appointment Laboratory Medicine Angélica Granger P.A.-C. [address] [place] [phone] 08/28/2022 Appointment Laboratory Medicine Angélica Granger P.A.-C. 200 [facility] [place] [phone] documented as of this encounter Visit Diagnoses Not on filedocumented in this encounter Additional Health Concerns Assessment Noted Time PHQ-9 Depression Total Score: 4 11/28/2020 10:17 AM CD T documented as of this encounter Care Teams Console Operator Relationship Specialty Start Date End Date Elsewhere, Pcp PCP - General Family Medicine 07/29/17 [facility] - Laboratory Medicine 04/12/[address] [address] documented as of this encounter
--- OUTSIDE RECORDS SUMMARY | 2022-04-13 12:16 | XMS_ITS | Encounter Summary ---
:1955 Author Organization [facility] Address [address] [place] [address] Care Team Providers Name Role Phone Elsewhere, Pcp Primary Care Provider Unavailable Reason for Referral Outpatient (Routine) - Closed Specialty Diagnoses / Procedures Referred By Contact Refer red To Contact Otorhinolaryngology Diagnoses Cerumen Impacted Bilateral Dotty Burrows [facility] Edmundo [address] [place] [address] Referral ID Status Reason Start Date Expiration Date Visits V isits Requested Authorized [id number] Closed Specialty 12/26/2020 12/26/2021 1 1 Services Required Encounter Details Date Type Department Care Team Description 12/26/2020 Orders Only Department of Audi [place]s Impact ed Otorhinolaryngology in Ijeoma Cardenas R.N. Bilateral (Primary [place], [place] 200 [facility] Dx) [address] [place] [phone] Social History Tobacco Use Types Packs/Day Years [...] 12/15/2021 organizations such as presybeterian groups, unions, [employer] or athletic groups, or school groups? 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 [address] [place] [phone] 05/08/2022 Appointment Laboratory Medicine Angélica Granger P.A.-C. [address] [place] [phone] 05/08/2022 Clinical Admitting/Central Communication Scheduling 05/10/2022 Appointment Radiology Jeremie Rose M.D. [address] [place] [phone] 05/10/2022 Comprehensive Visit Orthopedic Surgery Warner Graves M.D. [address] [place] [phone] 05/22/2022 Appointment Laboratory Medicine Angélica Granger P.A.-C. [address] [place] [phone] 06/05/2022 Appointment Laboratory Medicine Angélica Granger P.A.-C. [address] [place] [phone] 06/19/2022 Appointment Laboratory Medicine Angélica Granger P.A.-C. [address] [place] [phone] 07/03/2022 Appointment Laboratory Medicine Angélica Granger P.A.-C. [address] [place] [phone] 07/17/2022 Appointment Laboratory Medicine Angélica Granger P.A.-C. [address] [place] [phone] 07/31/2022 Appointment Laboratory Medicine Angélica Granger P.A.-C. [address] [place] [phone] 08/14/2022 Appointment Laboratory Medicine Angélica Granger P.A.-C. [address] [place] [phone] 08/28/2022 Appointment Laboratory Medicine Angélica Granger P.A.-C. [address] [place] [phone] Scheduled Referrals Name Type Priority Associated Order Schedule Diagnoses Otorhinolaryngology - Outpatient Routine Cerumen Impacted Ex pected: General non-surgical Referral Bilateral 021 consult (clinic) (Approximat e), Expires: 12/27/2023 documented as of this encounter Visit Diagnoses Diagnosis Cerumen Impacted Bilateral - Primary documented in this encounter Additional Health Concerns Infection Onset Date Last Indicated Resolved Time COVID19 Pending 01/04/2021 01/04/2021 01/04/2021 9:44 PM CDT Assessment Noted Time PHQ-9 Depression Total Score: 4 11/28/2020 10:17 AM CD T documented as of this encounter Care Teams Lemon Grower Relationship Specialty Start Date End Date Elsewhere, Pcp PCP - General Family Medicine 07/29/17 [facility] - Laboratory Medicine 04/12/[address] [address] documented as of this encounter
--- OUTSIDE RECORDS SUMMARY | 2022-04-13 12:16 | XMS_ITS | Encounter Summary ---
:1955 Author Organization [facility] Address [address] [place] [id number] Care Team Providers Name Role Phone Elsewhere, Pcp Primary Care Provider Unavailable Reason for Referral Outpatient (Routine) - Closed Specialty Diagnoses / Procedures Referred By Contact Refer red To Contact Otorhinolaryngology Allen Palomares [facility] Center[facility], P.Murtaza.-CDemetrius [address] [place] [phone] Referral ID Status Reason Start Date Expiration Date Visits Requ ested Visits Authorized [id number] Closed 12/28/2020 12/28/2021 1 1 Reason for Visit Outpatient (Routine) - Closed Specialty Diagnoses / Procedures Referred By Contact Refer red To Contact Otorhinolaryngology Diagnoses Cerumen Impacted Bilateral Dotty Burrows [facility] P.A.-CDemetrius [address] [place] [address] Referral ID Status Reason Start Date Expiration Date Visits V isits Requested Authorized [id number] Closed Specialty 12/26/2020 12/26/2021 1 1 Services Required Encounter Details Date Type Department Care Team Description 12/28/2020 Comprehensive Visit Department of Marielle, Otitis Media Acute Right (Primary Dx); Otorhinolaryngology in Allen Hernandez, Myrin gitis Acute Right; [facility], Cerumen Impacted Left [address] [facility] 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 - 12/28/2020 11:30 AM CDT SUBJECTIVE Referral Source: Dotty Burrows PA-C for evaluation of right otorrhea CHIEF COMPLAINT / REASON FOR VISIT Bruce Singh is a 65 y.o. male who presents for evaluation of right otorrhea HISTORY OF PRESENT ILLNESS Mr. Singh is a very pleasant 65 y.o. with history of CRS and right eustachian tube dysfunction whopresents today for new onset right otorrhea. For several months, he has had drainage from his right ear. This has been foul smelling. He does have a history of right PE tube placement in 2017 though [id number] when his ear is examined this appeared to be extruded/TM healed. He denies any otalgia. He doesreport treatment for squamous cell carcinoma of right ryann bowl performed 11/30/2020. He believes it was shortly after this that he began to have some drainage and does recall having an ear flushing.No other otologic concerns. Social History Tobacco Use Smoking status: Never Smoker Smokeless tobacco: Never Used ALLERGIES: Allergies Allergen Reactions ??? Cefixime Diarrhea ??? Ciprofloxacin Other (see comments) Tendon pain ??? Citalopram Other (see comments) michell ??? Erythromycin Base Other (see comments) Due to medications ??? Olanzapine Other (see comments) Joint pain ??? Quetiapine Edema Muscle pain and swelling CURRENT MEDICATIONS: Current Outpatient Medications: ??? acetaminophen (TYLENOL) 500 mg tablet, Take 1 tablet by mouth every 6 (six) hours as needed. Pain. No more than 2000 mg per day. , Disp: , Rfl: ??? albuterol (ACCUNEB) 2.5 mg /3 mL nebulizer solution, Inhale 3 mL (2.5 mg total) by nebulization 2 (two) times a day. (Patient not taking: Reported on 12/28/2020 ), Disp: 540 mL, Rfl: 0 ??? amoxicillin (AMOXIL) 500 mg capsule, Take 4 capsules by mouth as directed. Prior to dental procedures, Disp: , Rfl: 0 ??? aspirin (ASPIRIN CHILDRENS) 81 mg chewable tablet, Chew 81 mg daily. , Disp: , Rfl: ??? atorvastatin (LIPITOR) 10 mg tablet, Take 1 tablet (10 mg total) by mouth daily., Disp: 90 tablet, Rfl: 3 ??? budesonide (Pulmicort) 0.5 mg/2 mL nebulizer solution, Mix 1 ampule in sinus irrigation bottle and irrigate twice daily., Disp: 120 mL, Rfl: 6 ??? calcium carb/magnesium oxid/D3 (CALCIUM MAGNESIUM + D ORAL), Take 2 tablets by mouth 2 (two) times a day. Total of 700 mg of calcium, 350 mg of magnesium, and 400 IU of vitamin D, Disp: , Rfl: ??? ciprofloxacin-dexamethasone (CIPRODEX) 0.3-0.1 % otic suspension, Administer 4 drops into the right ear 2 (two) times a day for 14 days., Disp: 7.5 mL, Rfl: 0 ??? coenzyme Q10 (CO Q-10) 200 mg capsule, Take 1 capsule by mouth daily. , Disp: , Rfl: ??? darbepoetin michelle-polysorbate (Aranesp, in polysorbate,) 60 mcg/0.3 mL injection, Inject 0.3 mL (60 mcg total) under the skin once for 1 dose. Hold if Hgb greater than 11 g/dL, Disp: 1 Syringe, Rfl:6 ??? doxazosin (CARDURA) 4 mg tablet, Take 1 tablet (4 mg total) by mouth daily. (Patient taking differently: Take 4 mg by mouth at bedtime. ), Disp: 90 tablet, Rfl: 3 ??? fluticasone propionate (FLONASE) 50 mcg/actuation nasal spray, Administer 2 sprays into each nostril 2 (two) times a day. (Patient taking differently: Administer 2 sprays into each nostril 2 (two) times a day as needed. ), Disp: 64 g, Rfl: 11 ??? lamoTRIgine (LaMICtal) 200 mg tablet, TAKE 1 TABLET BY MOUTH TWICE DAILY, Disp: 200 tablet, Rfl:3 ??? levothyroxine (SYNTHROID, LEVOTHROID) 25 mcg tablet, Take 1 tablet (25 mcg total) by mouth everymorning before breakfast., Disp: 90 tablet, Rfl: 3 ??? loratadine (CLARITIN) 10 mg tablet, Take 10 mg by mouth at bedtime. , Disp: , Rfl: ??? montelukast (SINGULAIR) 10 mg tablet, Take 10 mg by mouth at bedtime. , Disp: , Rfl: ??? multivitamin tablet, Take 1 tablet by mouth daily. Maintenance, Disp: , Rfl: ??? mycophenolate (CELLCEPT) 500 mg tablet, TAKE 1 TABLET BY MOUTH TWICE DAILY, Disp: 180 tablet, Rfl: 3 ??? NIFEdipine XL (PROCARDIA XL) 30 mg 24 hr tablet, Take 3 tablets (90 mg total) by mouth daily., Disp: 270 tablet, Rfl: 3 ??? ondansetron (ZOFRAN) 4 mg tablet, Take 1 tablet (4 mg total) by mouth every 8 (eight) hours as needed for nausea or vomiting., Disp: 20 tablet, Rfl: 0 ??? predniSONE (DELTASONE) 5 mg tablet, Take 1 tablet (5 mg total) by mouth daily., Disp: 90 tablet,Rfl: 3 ??? tacrolimus (PROGRAF) 0.5 mg capsule, Take 2 capsules (1 mg total) by mouth 2 (two) times a day.,Disp: 360 capsule, Rfl: 3 ??? tiotropium (SPIRIVA RESPIMAT) 2.5 mcg/actuation inhaler, Inhale 2 puffs daily., Disp: 1 Inhaler,Rfl: 0 ??? torsemide (DEMADEX) 10 mg tablet, Take 3 tablets (30 mg total) by mouth daily., Disp: 270 tablet, Rfl: 3 PAST MEDICAL HISTORY: Past Medical History: Diagnosis Date ??? Blood [...] Unspecified Body Region many in the past SURGICAL HISTORY: Past Surgical History: Procedure Laterality Date ??? [...] 09/03/2013 >Umbilical hernia repair. ??? VASECTOMY 1989 SOCIAL HISTORY: Social History Socioeconomic History ??? Marital status: Single Spouse name: Not on file ??? Number of children: Not on file ??? Years of education: Not on file ??? Highest education level: Some college, no degree Occupational History ??? Not on file Tobacco Use ??? Smoking status: Never Smoker ??? Smokeless tobacco: Never Used Vaping Use ??? Vaping Use: never used Substance and Sexual Activity ??? Alcohol use: No ??? Drug use: No ??? Sexual activity: Not Currently control/protection: Vasectomy Other Topics Concern ??? Not on file Social History Narrative ??? Not on file Social Determinants of Health Financial Resource Strain: [...] and Family: Once a week ??? Attends Gnosticism Services: More than 4 times per year ??? Active Member of Clubs or Organizations: Yes ??? Attends Club or Organization Meetings: 1 to 4 times per year ??? Marital Status: Never Intimate Partner Violence: ??? Fear of Current or Ex-Partner: ??? Emotionally Abused: ??? Physically Abused: ??? Sexually Abused: FAMILY HISTORY: Family History Problem Relation Age of Onset ??? Coronary artery disease Mother ??? Heart attack Mother ??? Heart disease Mother ??? Hypertension Mother ??? Heart attack Father ??? Heart disease Father ??? Skin cancer Father ??? Prostate cancer Father ??? Coronary artery disease Father REVIEW OF SYSTEMS 10 point review of systems reviewed with patient and noncontributory other than in HPI. OBJECTIVE PHYSICAL EXAM General: Well appearing in no acute distress. Head: Normocephalic, atraumatic. Eyes: Extraocular eye movements intact bilaterally. Ears: Bilateral external ears without masses or lesions. Bilateral ears examined under otomicroscopy. Right Ear: Scabbing present in ryann bowl that was removed, underlying skin appears healthy. External auditory canal with mucopurulent drainage removed using suction. Tympanic membrane with myringitis and a small 10% perforation inferiorly with some muco purulence emanating from middle ear space. Left Ear: Externally normal in appearance. External auditory canal fully impacted with cerumen removed using suction and micro alligators. Tympanic membrane intact. Respiratory: Unlabored respirations. Psych: Appropriate mood and affect. ASSESSMENT / PLAN #1 Otitis Media Acute Right #2 Myringitis Acute Right #3 Cerumen Impacted Left It was a pleasure to meet Mr. Singh today. We discussed finding of muco purulence with TM perforation. I recommended use of Ciprodex for 14 days to help with infection. He is returning 01/08/[address] Pena and I can see him back at that time to ensure improvement. He will contact me in the interim if any otologic concerns. All questions answered to the best of my ability. Patient reports understanding and agreement with this treatment plan. TT: 30 min documented in this encounter Plan of Treatment Upcoming Encounters Date Type Specialty Care Team Description 04/24/2022 Appointment Laboratory Medicine Angélica Granger P.A.-C. [address] [place] [phone] 04/25/2022 Office Visit Otorhinolaryngology Dex Matta APRN, C.N.P., M.S.N. [address] [place] [phone] 05/08/2022 Appointment Laboratory Medicine Angélica Granger P.A.-C. [address] [place] [phone] 05/08/2022 Clinical Admitting/Central Communication Scheduling 05/10/2022 Appointment Radiology Jeremie Rose M.D. [address] [place] [phone] 05/10/2022 Comprehensive Visit Orthopedic Surgery Warner Graves M.D. [address] [place] [phone] 05/22/2022 Appointment Laboratory Medicine Angélica Granger P.A.-C. [address] [place] [phone] 06/05/2022 Appointment Laboratory Medicine Angélica Granger P.A.-C. [address] [place] [phone] 06/19/2022 Appointment Laboratory Medicine Angélica Granger P.A.-C. [address] [place] [phone] 07/03/2022 Appointment Laboratory Medicine Angélica Granger P.A.-C. [address] [place] [phone] 07/17/2022 Appointment Laboratory Medicine Angélica Granger P.A.-C. [address] [place] [phone] 07/31/2022 Appointment Laboratory Medicine Angélica Granger P.A.-C. [address] [place] [phone] 08/14/2022 Appointment Laboratory Medicine Angélica Granger P.A.-C. [address] [place] [phone] 08/28/2022 Appointment Laboratory Medicine Angélica Granger P.A.-C. [address] [place] [phone] Scheduled Referrals Name Type Priority Associated Order Schedule Diagnoses Otorhinolaryngology office Outpatient Routine E xpected: visit (clinic) Referral 01/08/2021 (Approximate), Expires: 12/29/2023 documented as of this encounter Visit Diagnoses Diagnosis Otitis Media Acute Right - Primary Myringitis Acute Right Cerumen Impacted Left documented in this encounter Additional Health Concerns Assessment Noted Time PHQ-9 Depression Total Score: 4 11/28/2020 10:17 AM CD T documented as of this encounter Care Teams Storage Management Consultant Relationship Specialty Start Date End Date Elsewhere, Pcp PCP - General Family Medicine 07/29/17 [facility] - Laboratory Medicine 04/12/[address] [phone] documented as of this encounter
--- OUTSIDE RECORDS SUMMARY | 2022-04-13 12:16 | XMS_ITS | Encounter Summary ---
:1955 Author Organization [facility] Address [address] [place] [address] Care Team Providers Name Role Phone Elsewhere, Pcp Primary Care Provider Unavailable Reason for Referral Outpatient (Routine) - Closed Specialty Diagnoses / Procedures Referred By Contact Refer red To Contact Nutrition Diagnoses Chronic Kidney Disease Stage 4 Glomerular Filtration Rate 15-29 (HCC) Eve [facility] C.N.P., D.N.P. [address] [place] [address] Referral ID Status Reason Start Date Expiration Date Visits Requ ested Visits Authorized [id number] Closed 12/28/2020 12/28/2021 1 1 Scheduling Instructions This appointment should ideally be sched uled AFTER the Notching Machine Operator Consults, but must at least be scheduled 48 hours afte r 24-hour urine collection is complete. Virtual visit is acceptable for this titian visit. Reason for Visit Reason Comments Chronic Kidney Disease Outpatient (Routine) - Closed Specialty Diagnoses / Procedures Referred By Contact Refer red To Contact Nephrology and Mirian RamirezMin[facility] Reg ion Hypertension RAMONA, C.N.P., M.S.N. [address] [place] [address] Referral ID Status Reason Start Date Expiration Date Visits Requ ested Visits Authorized [id number] Closed 11/29/2020 11/29/2021 1 1 Encounter Details Date Type Department Care Team Description 12/28/2020 Office Visit Division of Nephrology Eve Garcia Chronic Kidney and Hypertension in [place], FUNCTIONAL TESTER, C.N.P., Dise ase Stage 4 [place], [place] D.N.P. 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 - 12/28/2020 10:00 AM CDT 1. Start Aranesp injections for hemoglobin-will be in [facility] 2. Start going to chronic kidney disease clinic in [facility] 3. Vein mapping appointment to check arm for fistula placement 4. Check renal profile lab in Feb if e-GFR less than 15 mL/min place fistula Please remember to avoid taking NSAIDS (such as ibuprofen, naproxen, ketorolac, indomethacin, nabumetone) as these medications may affect your kidney function. Should you receive medications from a doctor, please remind them of your kidney disease and ask thatthey check the appropriate dose for you. Your medications should be dosed for an eGFR of 16 mL/min/1.73 m2. Please remember that contrast dye from CT scans, heart catheterizations, or MRI studies may affect your kidney function. You should discuss this risk with your doctor. If you have high blood pressure please remember to record your blood pressure and weight daily. If you have concerns about your blood pressure or weight before you next appointment please contact the [facility]. Bring blood pressure and weight recordings to your next appointment. Ifyou gain more than 3 lb in a day or 5 lb in a week please contact the [facility]. Contact the [facility] at [phone] if you have concerns regarding your kidneyor high blood pressure care. Please use our fax number #[phone] if you are requested by your kidney health care provider to fax in any test results. documented in this encounter Progress Notes Eve Garcia APRN, C.N.P., LouieNFabrice. - 12/28/2020 10:00 AM CDT Subjective: Chief Complaint/Reason for Visit Chief Complaint Patient presents with ??? Chronic Kidney Disease History of Present Illness: Mr. Singh is a pleasant 65-year-old male with chronic kidney disease stage 4. Most recent labs were done at [facility] on 12/26/2020 and are available in Care Everywhere. At that time, his creatinine was 3.74 mg/dL which per the CKD-EPI equation figures out to be an EGFR of 16 mL/minute. His BUN was 62. Of note, his potassium was 3.9 with a sodium of 134, and his bicarbonate level was 21. His phosphorus was 5.0. Overall, he is feeling really good. We talked about his kidney function today, and he is most interested in hemodialysis in the future. He understands that it is important to have an AV fistula placed ahead of time. He has had a tour of the [facility] dialysis unit. Review of Systems Constitutional: Positive for fatigue. Skin: Positive for change in mole or skin spot. ENT: Positive for sinus congestion. Respiratory: Positive for dyspnea. Cardiovascular: Positive for swelling in the legs or feet. Gastrointestinal: Positive for nausea. Genitourinary: Positive for frequent urination. Hematologic: Positive for bruises or bleeds easily. Neurological: Positive for headaches. The following systems were negative: Eyes, Musculoskeletal, Psych Objective: Constitutional General: He is awake. Cardiovascular Rate and Rhythm: Normal rate. Comments: Trace edema present. Pulmonary Effort: Pulmonary effort is normal. Skin General: Skin is warm and dry. Neurological Mental Status: He is alert and oriented to person, place, and time. Gait: Gait is intact. Psychiatric Attention and Perception: Attention normal. Mood and Affect: Mood normal. Speech: Speech normal. Behavior: Behavior normal. Behavior is cooperative. Thought Content: Thought content normal. Vitals: 12/28/20 0941 BP: 121/69 BP Location: Right arm Patient Position: Sitting Cuff Size: Regular Pulse: 82 Temp: (!) 35.8 ??C PainSc: 0-No pain Assessment/Plan: #1 Chronic kidney Disease (CKD) stage 4 secondary to calcineurin inhibitor use for liver transplant and bilateral renal artery stenosis GFR is 16 mL/min. BUN is 62 mg/dL. He does not display signs of uremia today. Signs and symptoms of uremia reviewed today. He is agreeable to see the CKD dietitians of this was scheduled. #2 CKD treatment options Kidney Transplant: he is undergoing evaluation Dialysis Plan: interested in hemodialysis Dialysis access: he should now get his lab draws in his dominant arm so we save his nondominant arm for a fistula Hepatitis B Status: Negative surface antigen 11/27/2020 Hepatitis B Immunization/date (s): Immune TB status: Negative TB QuantiFERON 0 11/27/2020 #3 Hypertension Blood pressure is satisfactory #4 Anemia of CKD I will start Aranesp to be given at [facility] 60 mcg subcu every 4 weeks hold if hemoglobin greaterthan 11 g/dL. I have reviewed his iron studies from this week that were done in [facility]. #5 Hyperparathyroidism, renal secondary PTH 64 on 11/27 2020 this is acceptable for CKD stage 4. I have reviewed his calcium and phosphorus from this week. I have reviewed with him that he needs to limit dairy products. #6 Metabolic Acidosis Bicarbonate mildly low at 21 mmol/L. I am not adding any new medications for this today. Follow-up: Aranesp injections will be started in [facility]. Renal profile will be done next in February if his kidney function decreases then we will plan for AV fistula evaluation to be done this fall. In the meantime he should complete his kidney transplant evaluation. If he indeed is a candidate then he should have living donors evaluated for him. documented in this encounter Plan of Treatment Upcoming Encounters Date Type Specialty Care Team Description 04/24/2022 Appointment Laboratory Medicine Angélica Granger P.A.-C. [address] [place] [phone] 04/25/2022 Office Visit Otorhinolaryngology Dex Matta APRN, C.N.P., M.S.N. [address] [place] [phone] 05/08/2022 Appointment Laboratory Medicine Angélica Granger P.A.-C. [address] [place] [phone] 05/08/2022 Clinical Admitting/Central Communication Scheduling 05/10/2022 Appointment Radiology Jeremie Rose M.D. [address] [place] [phone] 05/10/2022 Comprehensive Visit Orthopedic Surgery Warner Graves M.D. [address] [place] [phone] 05/22/2022 Appointment Laboratory Medicine Angélica Granger P.A.-C. [address] [place] [phone] 06/05/2022 Appointment Laboratory Medicine Angélica Granger P.A.-C. [address] [place] [phone] 06/19/2022 Appointment Laboratory Medicine Angélica Granger P.A.-C. [address] [place] [phone] 07/03/2022 Appointment Laboratory Medicine Angélica Granger P.A.-C. [address] [place] [phone] 07/17/2022 Appointment Laboratory Medicine Angélica Granger P.A.-C. [address] [place] [phone] 07/31/2022 Appointment Laboratory Medicine Angélica Granger P.A.-C. [address] [place] [phone] 08/14/2022 Appointment Laboratory Medicine Angélica Granger P.A.-C. [address] [place] [phone] 08/28/2022 Appointment Laboratory Medicine Angélica Granger P.A.-C. [address] [place] [phone] Scheduled Referrals Name Type Priority Associated Order Schedule Diagnoses Nutrition - Outpatient Referral Routine Chronic Kidney Expect ed: Nephrology medical Disease Stage 4 2020 nutrition therapy Glomerular (Approxima te), consult (clinic) Filtration Rate Expires: 15-29 (HCC) 12/28/2023 documented as of this encounter Visit Diagnoses Diagnosis Chronic Kidney Disease Stage 4 Glomerula r Filtration Rate 15-29 (HCC) - Primary documented in this encounter Additional Health Concerns Assessment Noted Time PHQ-9 Depression Total Score: 4 11/28/2020 10:17 AM CD T documented as of this encounter Care Teams Capability Lead Relationship Specialty Start Date End Date Elsewhere, Pcp PCP - General Family Medicine 07/29/17 [facility] - Laboratory Medicine 04/12/[address] [address] documented as of this encounter
--- OUTSIDE RECORDS SUMMARY | 2022-04-13 12:16 | XMS_ITS | Encounter Summary ---
:1955 Author Organization [facility] Address [address] [place] [address] Care Team Providers Name Role Phone Elsewhere, Pcp Primary Care Provider Unavailable Encounter Details Date Type Department Care Team Description 12/28/2020 Orders Only Department of Allen Palomares Otorhinolaryngology in E, [facility] 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 [address] [place] [phone] 04/25/2022 Office Visit Otorhinolaryngology Dex Matta APRN, C.N.P., M.S.N. [address] [place] [phone] 05/08/2022 Appointment Laboratory Medicine Angélica Granger P.A.-CDemetrius [address] [place] [phone] 05/08/2022 Clinical Admitting/Central Communication Scheduling 05/10/2022 Appointment Radiology Jeremie Rose M.D. [address] [place] [phone] 05/10/2022 Comprehensive Visit Orthopedic Surgery Warner Graves M.D. [address] [place] [phone] 05/22/2022 Appointment Laboratory Medicine Angélica Granger P.A.-C. [address] [place] [phone] 06/05/2022 Appointment Laboratory Medicine Angélica Granger P.A.-C. [address] [place] [phone] 06/19/2022 Appointment Laboratory Medicine Angélica Granger P.A.-C. [address] [place] [phone] 07/03/2022 Appointment Laboratory Medicine Angélica Granger P.A.-C. [address] [place] [phone] 07/17/2022 Appointment Laboratory Medicine Angélica Granger P.A.-C. [address] [place] [phone] 07/31/2022 Appointment Laboratory Medicine Angélica Granger P.A.-C. [address] [place] [phone] 08/14/2022 Appointment Laboratory Medicine Angélica Granger P.A.-C. [address] [place] [phone] 08/28/2022 Appointment Laboratory Medicine Angélica Granger P.A.-C. [address] [place] [phone] documented as of this encounter Visit Diagnoses Not on filedocumented in this encounter Additional Health Concerns Assessment Noted Time PHQ-9 Depression Total Score: 4 11/28/2020 10:17 AM CD T documented as of this encounter Care Teams Assembly Machine Operator Relationship Specialty Start Date End Date Elsewhere, Pcp PCP - General Family Medicine 07/29/17 [facility] - Laboratory Medicine 04/12/[address] [address] documented as of this encounter
--- OUTSIDE RECORDS SUMMARY | 2022-04-13 12:16 | XMS_ITS | Encounter Summary ---
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 [address] [place] [phone] 04/25/2022 Office Visit Otorhinolaryngology Dex Matta APRN, C.N.P., M.S.N. [address] [place] [phone] 05/08/2022 Appointment Laboratory Medicine Angélica Granger P.A.-C. [address] [place] [phone] 05/08/2022 Clinical Admitting/Central Communication Scheduling 05/10/2022 Appointment Radiology Jeremie Rose M.D. [address] [place] [phone] 05/10/2022 Comprehensive Visit Orthopedic Surgery Warner Graves M.D. [address] [place] [phone] 05/22/2022 Appointment Laboratory Medicine Angélica Granger P.A.-C. [address] [place] [phone] 06/05/2022 Appointment Laboratory Medicine Angélica Granger P.A.-C. [address] [place] [phone] 06/19/2022 Appointment Laboratory Medicine Angélica Granger P.A.-C. [address] [place] [phone] 07/03/2022 Appointment Laboratory Medicine Angélica Granger P.A.-C. [address] [place] [phone] 07/17/2022 Appointment Laboratory Medicine Angélica Granger P.A.-C. [address] [place] [phone] 07/31/2022 Appointment Laboratory Medicine Angélica Granger P.A.-C. [address] [place] [phone] 08/14/2022 Appointment Laboratory Medicine Angélica Granger P.A.-C. [address] [place] [phone] 08/28/2022 Appointment Laboratory Medicine Angélica Granger P.A.-C. [address] [place] [phone] documented as of this encounter Procedures Procedure Name Priority Date/Time Associated Comments Diagnosis OTORHINOLARYNGOLOGY IMAGE Routine 01/08/2021 4:07 Results for this EXAM PM CDT procedure are i n the results section. documented in this encounter Results NOSE-Otorhinolaryngology Image Exam (01/08/2021 4:07 PM CDT) Specimen (Source) Anatomical Collection Method Collection Time Re ceived Time Location / / Volume Laterality 01/08/2021 4:16 PM CDT Narrative [facility] - 01/08/2021 4:07 PM CDT This order has been created [...] as of this encounter Care Teams Online Content Developer Relationship Specialty Start Date End Date Elsewhere, Pcp PCP - General Family Medicine 07/29/17 [facility] - Laboratory Medicine 04/12/[address] [address] documented as of this encounter
--- OUTSIDE RECORDS SUMMARY | 2022-04-13 12:16 | XMS_ITS | Encounter Summary ---
:1955 Author Organization [facility] Address [address] [place] [address] Care Team Providers Name Role Phone Elsewhere, Pcp Primary Care Provider Unavailable Reason for Visit Reason Comments Faxed Infusion Therapy Order Encounter Details Date Type Department Care Team Description 01/08/2021 Clinical Division of Jose, Faxed Infusion Communication Nephrology and Nikita Wise Hypertension in [facility].[place], [place] D.N.P. 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 [phone]. Per/Makayla. documented in this encounter Plan of Treatment Upcoming Encounters Date Type Specialty Care Team Description 04/24/2022 Appointment Laboratory Medicine Angélica Granger P.A.-CDemetrius [address] [place] [phone] 04/25/2022 Office Visit Otorhinolaryngology Dex Matta APRN, C.N.P., M.S.N. [address] [place] [phone] 05/08/2022 Appointment Laboratory Medicine Angélica Granger P.A.-CDemetrius [address] [place] [phone] 05/08/2022 Clinical Admitting/Central Communication Scheduling 05/10/2022 Appointment Radiology Jeremie Rose M.D. [address] [place] [phone] 05/10/2022 Comprehensive Visit Orthopedic Surgery Warner Graves M.D. [address] [place] [phone] 05/22/2022 Appointment Laboratory Medicine Angélica Granger P.A.-C. [address] [place] [phone] 06/05/2022 Appointment Laboratory Medicine Angélica Granger P.A.-C. [address] [place] [phone] 06/19/2022 Appointment Laboratory Medicine Angélica Granger P.A.-C. [address] [place] [phone] 07/03/2022 Appointment Laboratory Medicine Angélica Granger P.A.-C. [address] [place] [phone] 07/17/2022 Appointment Laboratory Medicine Angélica Granger P.A.-C. [address] [place] [phone] 07/31/2022 Appointment Laboratory Medicine Angélica Granger P.A.-C. [address] [place] [phone] 08/14/2022 Appointment Laboratory Medicine Angélica Granger P.A.-C. [address] [place] [phone] 08/28/2022 Appointment Laboratory Medicine Angélica Granger P.A.-C. [address] [place] [phone] documented as of this encounter Visit Diagnoses Not on filedocumented in this encounter Additional Health Concerns Assessment Noted Time PHQ-9 Depression Total Score: 4 11/28/2020 10:17 AM CD T documented as of this encounter Care Teams Spareribs Trimmer Relationship Specialty Start Date End Date Elsewhere, Pcp PCP - General Family Medicine 07/29/17 [facility] - Laboratory Medicine 04/12/[address] [address] documented as of this encounter
--- OUTSIDE RECORDS SUMMARY | 2022-04-13 12:16 | XMS_ITS | Encounter Summary ---
:1955 Author Organization [facility] Address [address] [place] [address] Care Team Providers Name Role Phone Elsewhere, Pcp Primary Care Provider Unavailable Reason for Visit Outpatient (Routine) - Closed Specialty Diagnoses / Procedures Referred By Contact Refer red To Contact Nutrition Diagnoses Chronic Kidney Disease Stage 4 Glomerular Filtration Rate 15-29 ([facility]) [facility] 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 Consult conducted via real-time audio technology by Cherry Dougherty, , ROSARIO, LD in [facility] to the patient's home. ASSESSMENT Relevant Social and Family History Patient lives alone. He has many close friends that offer support and meals from time to time. Patient reports he does very little cooking at home. Nutrition Focused Physical Findings Patient reports he struggles with dysgeusia. Foods just don't taste good other than sweet things. Food/Nutrition Related History Previous diet experience: Patient visited with a dietitian during his transplant evaluation in March 2018. Breakfast: oatmeal with various fruit, milk with a little chocolate flavored protein powder. Morning snack: fruit Lunch: often out, could be [employer] or a sit down restaurant Afternoon snack: fruit Evening meal: varies - maybe a small portion of meat and vegetables, maybe a mixed meal like tacos, maybe just a peanut butter and jelly sandwich Bedtime snack: maybe an ice cream treat from [employer] Beverage choices: some milk, water Salt/Seasoning use: uses a pinch of salt from time to time Weight History Date: 01/12/21 Weight: Wt 76.8 kg kg Body mass index is Body mass index is 25.13 kg/m??.. Weight is down nearly 10 kg since his kidney transplant evaluation in March 2018. Estimation of Nutritional Needs Weight Used for Equation Calculations: 76.8 kg Date: 12/28/2020 Estimation of Nutritional Needs PROTEIN Weight:76.8 kg (actual body weight) Protein Range:0.6-0.8 grams/kg Protein Goal: 46 to 61 grams per day Suggest: 50-60 grams Method to Estimate Energy Needs: Hernandez-Dowling Hernandez-Dowling BEE (Basal): 1551 HB Adjusted: 1861 Total Calorie Needs: 7698-4211 calories NUTRITION DIAGNOSIS Altered nutrition-related laboratory values (NC-2.2) related to chronic kidney disease as evidenced by low eGFR. Nutrition Prescription/Recommendation 2000 mg sodium, 50 grams protein, low phosphorus INTERVENTION Counseling: Reviewed kidney friendly diet guidelines. Offered suggestions for seasoning options to enhance the flavor of food. Encouraged adequate protein - about 50 grams and adequate calories to maintain a healthy weight. MONITORING AND EVALUATION: Nutrition parameter to monitor: Food intake Desired Outcome: Maintain nutrition related lab values within target range Patient Goal(s): 1. 2000 mg sodium 2. 50 gm protein 3. Avoid processed food FOLLOW UP PLAN: Patient will call to schedule follow-up appointment if desired Time spent with patient (minutes): 30 documented in this encounter Plan of Treatment Upcoming Encounters Date Type Specialty Care Team Description 04/24/2022 Appointment Laboratory Medicine Angélica Granger P.A.-C. [address] [place] [phone] 04/25/2022 Office Visit Otorhinolaryngology Dex Matta APRN, C.N.P., M.S.N. [address] [place] [phone] 05/08/2022 Appointment Laboratory Medicine Angélica Granger P.A.-C. [address] [place] [phone] 05/08/2022 Clinical Admitting/Central Communication Scheduling 05/10/2022 Appointment Radiology Jeremie Rose M.D. [address] [place] [phone] 05/10/2022 Comprehensive Visit Orthopedic Surgery Warner Graves M.D. [address] [place] [phone] 05/22/2022 Appointment Laboratory Medicine Angélica Granger P.A.-C. [address] [place] [phone] 06/05/2022 Appointment Laboratory Medicine Angélica Granger P.A.-C. [address] [place] [phone] 06/19/2022 Appointment Laboratory Medicine Angélica Granger P.A.-C. [address] [place] [phone] 07/03/2022 Appointment Laboratory Medicine Angélica Granger P.A.-C. [address] [place] [phone] 07/17/2022 Appointment Laboratory Medicine Angélica Granger P.A.-C. [address] [place] [phone] 07/31/2022 Appointment Laboratory Medicine Angélica Granger P.A.-C. [address] [place] [phone] 08/14/2022 Appointment Laboratory Medicine Angélica Granger P.A.-C. [address] [place] [phone] 08/28/2022 Appointment Laboratory Medicine Angélica Granger P.A.-C. [address] [place] [phone] documented as of this encounter Visit Diagnoses Diagnosis Chronic Kidney Disease Stage 4 Glomerula r Filtration Rate 15-29 (H[facility]) documented in this encounter Additional Health Concerns Assessment Noted Time PHQ-9 Depression Total Score: 4 11/28/2020 10:17 AM CD T documented as of this encounter Care Teams Digital Manager Relationship Specialty Start Date End Date Elsewhere, Pcp PCP - General Family Medicine 07/29/17 [facility] - Laboratory Medicine 04/12/[address] [address] documented as of this encounter
--- OUTSIDE RECORDS SUMMARY | 2022-04-13 12:16 | XMS_ITS | Encounter Summary ---
:1955 Author Organization [facility] Address [address] [place] [address] Care Team Providers Name Role Phone Elsewhere, Pcp Primary Care Provider Unavailable Reason for Visit Outpatient (Routine) - Closed Specialty Diagnoses / Procedures Referred By Contact Refer red To Contact Otorhinolaryngology Allen Palomares [facility] Edmundo MAGDALENO [address] [place] [phone] Referral ID Status Reason Start Date Expiration Date Visits Requ ested Visits Authorized [id number] Closed 12/28/2020 12/28/2021 1 1 Encounter Details Date Type Department Care Team Description 01/08/2021 Office Visit Department of [place] Palomares Otorhinolaryngology in Allen Hernandez [place], [place] Edmundo MAGDALENO Right (Primary Dx) [address] [place] [address] [place] [address] [place], [place] [phone] Social History Tobacco Use Types Packs/Day Years [...] 12/15/2021 organizations such as anabaptism groups, unions, [place] or athletic groups, or school groups? 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 - 01/08/2021 2:00 PM CDT SUBJECTIVE CHIEF COMPLAINT / REASON FOR VISIT Bruce Singh is a 65 y.o. male who presents for follow-up of right otitis media HISTORY OF PRESENT ILLNESS Mr. Singh is a very pleasant 65 y.o. with history of CRS and right eustachian tube dysfunction whopresents today for follow-up of right otorrhea. His history is further outlined in my note dated 12/28/2020, essentially had several months of drainage prior to his office visit. He had not had any medical treatment trialed. At that visit, his ear was cleaned and he was recommended to begin using ofloxacin/prednisolone drops which he was able to complete. He reports at this time he is not currently having any difficulties with otorrhea. He has no other otologic concerns. ALLERGIES: Allergies Allergen Reactions ??? Cefixime Diarrhea [...] daily., Disp: 270 tablet, Rfl: 3 ??? ofloxacin (FLOXIN) 0.3 % otic solution, Administer 4 drops into the right ear 2 (two) times a day. Use 2 drops twice daily with ofloxacin drops (4 drops total) x 14 days, Disp: 5 mL, Rfl: 0 ??? ondansetron (ZOFRAN) 4 mg tablet, Take 1 tablet (4 mg total) by mouth every 8 (eight) hours as needed for nausea or vomiting., Disp: 20 tablet, Rfl: 0 ??? prednisoLONE acetate (PRED FORTE) 1 % ophthalmic suspension, Administer 2 drops into the right ear 2 (two) times a day. Use 2 drops twice daily with ofloxacin drops x 14 days, Disp: 5 mL, Rfl: 0 ??? predniSONE (DELTASONE) 5 mg tablet, Take 1 tablet (5 mg total) by mouth daily., Disp: 90 tablet,Rfl: 3 ??? Spiriva Respimat 2.5 mcg/actuation inhaler, INHALE 2 PUFFS BY MOUTH DAILY, Disp: 4 g, Rfl: 0 ??? tacrolimus (PROGRAF) 0.5 mg capsule, Take 2 capsules (1 mg total) by mouth 2 (two) times a day.,Disp: 360 capsule, Rfl: 3 ??? torsemide (DEMADEX) 10 mg tablet, Take [...] and Family: Once a week ??? Attends Bahai Services: More than 4 times per year [...] Coronary artery disease Father REVIEW OF SYSTEMS 7 point review of systems reviewed with patient and noncontributory other than in HPI. OBJECTIVE PHYSICAL EXAM General: Well appearing in no acute distress. Head: Normocephalic, atraumatic. Eyes: Extraocular eye movements intact bilaterally. Ears: Bilateral external ears without masses or lesions. Right ear examined under otomicroscopy. Right Ear: Externally normal in appearance. External auditory canal patent and healthy. Tympanic membrane with small 10% inferior perforation. Respiratory: Unlabored respirations. Psych: Appropriate mood and affect. ASSESSMENT / PLAN #1 Perforation Tympanic Membrane Right It was a pleasure to see Mr. Singh today. Patient has recovered from right otitis media following use of ofloxacin/prednisolone. On examination today, he does have a small residual perforation that was ear otherwise appears healthy. Given his history of eustachian tube dysfunction, I think he would likely benefit from having a small perforation. Given the presence of the small perforation, he may intermittently experience some drainage we discussed it is reasonable for him to use the drops for 7 days and if no improvement follow-up with office visit at that time. He will follow-up as needed. All questions answered to the best of my ability. Patient reports understanding and agreement with this treatment plan. TT: 10 min Answers for HPI/ROS submitted by the patient on 11/22/2020 Fatigue: Yes No eye issues: Yes Sinus congestion: Yes Swelling in the legs or feet: Yes Shortness of breath: Yes Coughing up mucus (phlegm): Yes Nausea: Yes No muscle/bone issues: Yes Change in mole or skin spot: Yes Headache: Yes No mental health issues: Yes Bruises/bleeds easily: Yes Frequent urination: Yes documented in this encounter Plan of Treatment Upcoming Encounters Date Type Specialty Care Team Description 04/24/2022 Appointment Laboratory Medicine Angélica Granger P.A.-C. [address] [place] [phone] 04/25/2022 Office Visit Otorhinolaryngology Dex Matta APRN CDemetriusNJuan Miguel, M.S.N. [address] [place] [phone] 05/08/2022 Appointment Laboratory Medicine Angélica Granger P.A.-C. [address] [place] [phone] 05/08/2022 Clinical Admitting/Central Communication Scheduling 05/10/2022 Appointment Radiology Jeremie Rose M.D. [address] [place] [phone] 05/10/2022 Comprehensive Visit Orthopedic Surgery Warner Graves M.D. [address] [place] [phone] 05/22/2022 Appointment Laboratory Medicine Angélica Granger P.A.-C. [address] [place] [phone] 06/05/2022 Appointment Laboratory Medicine Angélica Granger P.A.-C. [address] [place] [phone] 06/19/2022 Appointment Laboratory Medicine nAgélica Granger P.A.-C. [address] [place] [phone] 07/03/2022 Appointment Laboratory Medicine Angélica Granger P.A.-C. [address] [place] [phone] 07/17/2022 Appointment Laboratory Medicine Angélica Granger P.A.-C. [address] [place] [phone] 07/31/2022 Appointment Laboratory Medicine Angélica Granger P.A.-C. [address] [place] [phone] 08/14/2022 Appointment Laboratory Medicine Angélica Granger P.A.-C. [address] [place] [phone] 08/28/2022 Appointment Laboratory Medicine Angélica Granger P.A.-C. [address] [place] [phone] documented as of this encounter Visit Diagnoses Diagnosis Perforation Tympanic Membrane Right - Pr imary documented in this encounter Additional Health Concerns Assessment Noted Time PHQ-9 Depression Total Score: 4 11/28/2020 10:17 AM CD T documented as of this encounter Care Teams Shade Hanger Relationship Specialty Start Date End Date Elsewhere, Pcp PCP - General Family Medicine 07/29/17 [facility] - Laboratory Medicine 04/12/[address] [address] documented as of this encounter
--- OUTSIDE RECORDS SUMMARY | 2022-04-13 12:16 | XMS_ITS | Encounter Summary ---
:1955 Author Organization [facility] Address [address] [place] [address] Care Team Providers Name Role Phone Elsewhere, Pcp Primary Care Provider Unavailable Reason for Visit Reason Comments Fever/cough/phlegm Encounter Details Date Type Department Care Team Description 01/04/2021 Clinical Communication Division of Agnieszka, Fever /cough/phlegm Pulmonary Medicine Connie Hernandez in [facility] [address] [facility] [address] [place] [phone] Social History Tobacco Use Types Packs/Day Years [...] Date Recorded Male 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 - 01/04/2021 11:57 AM CDT Mr. Spaulding has been noting worsening respiratory symptoms over the past 2 weeks. This includes increased, thicker sputum production that is cream in color and occasionally green. Approximately 5 days ago he began having intermittent fevers and chills, with fevers up to 101.5 F. He has taken Tylenol for fever symptom relief. He continues to take Spiriva as prescribed, and is currently not taking any other inhalers or nebulizers. Dr. Aaron is currently on hospital rotation, but will be updated withhis symptom report. He was instructed to contact his local PCP to have these concerns acutely addressed. He does have a follow-up appointment with ENT on 01/08/21 and has a pending COVID test. He agreedto contact his PCP and had no further questions or concerns. Telephone Encounter - Marlen Baird - 01/04/2021 11:07 AM CDT Patient calls with fever and increased cough/phlegm. His fever currently is 101.5 after taking tylenol. He just had a COVID test done but does not yet have results. He thinks he has a lung infection and doesn't know what to do. He also has dry heaves in the AM due to phlegm in back of throat. He requests a call back at [phone] Thank you, CATRACHO Gee Float [phone] documented in this encounter Plan of Treatment Upcoming Encounters Date Type Specialty Care Team Description 04/24/2022 Appointment Laboratory Medicine Angélica Granger P.A.-C. [address] [place] [phone] 04/25/2022 Office Visit Otorhinolaryngology Dex Matta APRN, C.N.P., M.S.N. [address] [place] [phone] 05/08/2022 Appointment Laboratory Medicine Angélica Granger P.A.-C. [address] [place] [phone] 05/08/2022 Clinical Admitting/Central Communication Scheduling 05/10/2022 Appointment Radiology Jeremie Rose M.D. [address] [place] [phone] 05/10/2022 Comprehensive Visit Orthopedic Surgery Warner Graves M.D. [address] [place] [phone] 05/22/2022 Appointment Laboratory Medicine Angélica Granger P.A.-C. [address] [place] [phone] 06/05/2022 Appointment Laboratory Medicine Angélica Granger P.A.-C. [address] [place] [phone] 06/19/2022 Appointment Laboratory Medicine Angélica Granger P.A.-C. [address] [place] [phone] 07/03/2022 Appointment Laboratory Medicine Angélica Granger P.A.-C. [address] [place] [phone] 07/17/2022 Appointment Laboratory Medicine Angélica Granger P.A.-C. [address] [place] [phone] 07/31/2022 Appointment Laboratory Medicine Angélica Granger P.A.-C. [address] [place] [phone] 08/14/2022 Appointment Laboratory Medicine Angélica Granger P.A.-C. [address] [place] [phone] 08/28/2022 Appointment Laboratory Medicine Angélica Granger P.A.-C. [address] [place] [phone] documented as of this encounter Visit Diagnoses Not on filedocumented in this encounter Additional Health Concerns Infection Onset Date Last Indicated Resolved Time COVID19 Pending 01/04/2021 01/04/2021 01/04/2021 9:44 PM CDT Assessment Noted Time PHQ-9 Depression Total Score: 4 11/28/2020 10:17 AM CD T documented as of this encounter Care Teams Bilingual Legal Assistant Relationship Specialty Start Date End Date Elsewhere, Pcp PCP - General Family Medicine 07/29/17 [facility] - Laboratory Medicine 04/12/[address] [address] documented as of this encounter
--- OUTSIDE RECORDS SUMMARY | 2022-04-13 12:16 | XMS_ITS | Encounter Summary ---
:1955 Author Organization [facility] Address [address] [place] [address] Care Team Providers Name Role Phone Elsewhere, Pcp Primary Care Provider Unavailable Reason for Referral Medication Prior Authorization - Authorized Specialty Diagnoses / Procedures Referred By Contact Refer red To Contact Padmini Barry APRN, C.N.PDemetrius, D.N.P. Referral ID Status Reason Start Date Expiration Date Visits V isits Requested Authorized [id number] Authorized 09/30/2020 12/29/2021 1 1 Encounter Details Date Type Department Care Team Description 01/09/2021 Orders Only Division of Nephrology and Padmini Barry Hypertension in [facility], Arley GREENE.N.Evan Romo, [place] D.N.P. 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 [address] [place] [phone] 04/25/2022 Office Visit Otorhinolaryngology Dex Matta, RAMONA, C.N.P., M.S.N. [address] [place] [phone] 05/08/2022 Appointment Laboratory Medicine Angélica Granger P.A.-CDemetrius [address] [place] [phone] 05/08/2022 Clinical Admitting/Central Communication Scheduling 05/10/2022 Appointment Radiology Jeremie Rose M.D. [address] [place] [phone] 05/10/2022 Comprehensive Visit Orthopedic Surgery Warner Graves M.D. [address] [place] [phone] 05/22/2022 Appointment Laboratory Medicine Angélica Granger P.A.-C. [address] [place] [phone] 06/05/2022 Appointment Laboratory Medicine Angélica Granger P.A.-C. [address] [place] [phone] 06/19/2022 Appointment Laboratory Medicine Angélica Granger P.A.-C. [address] [place] [phone] 07/03/2022 Appointment Laboratory Medicine Angélica Granger P.A.-C. [address] [place] [phone] 07/17/2022 Appointment Laboratory Medicine Angélica Granger P.A.-C. [address] [place] [phone] 07/31/2022 Appointment Laboratory Medicine Angélica Granger P.A.-C. [address] [place] [phone] 08/14/2022 Appointment Laboratory Medicine Angélica Granger P.A.-C. [address] [place] [phone] 08/28/2022 Appointment Laboratory Medicine Angélica Granger P.A.-C. [address] [place] [phone] documented as of this encounter Visit Diagnoses Not on filedocumented in this encounter Additional Health Concerns Assessment Noted Time PHQ-9 Depression Total Score: 4 11/28/2020 10:17 AM CD T documented as of this encounter Care Teams Multimedia Artist Relationship Specialty Start Date End Date Elsewhere, Pcp PCP - General Family Medicine 07/29/17 [facility] - Laboratory Medicine 04/12/20 [place] [phone] documented as of this encounter
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
--- OUTSIDE RECORDS SUMMARY | 2022-04-13 12:16 | XMS_ITS | Encounter Summary ---
:1955 Author Organization [facility] Address [address] [place] [address] Care Team Providers Name Role Phone Elsewhere, Pcp Primary Care Provider Unavailable Reason for Visit Reason Comments rx-Ciprodex Encounter Details Date Type Department Care Team Description 12/28/2020 Clinical Department of Jennifer Palomares Communication Otorhinolaryngology in [place], [place] RASTA PDemetriusA.-C. 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 - 12/28/2020 2:45 PM CDT I prescribed alternative of ofloxacin/prednisolone. Thanks! Telephone Encounter - Lina Abarca - 12/28/2020 2:32 PM CDT Received a fax from [employer] that Cipro/Dexameth is not covered with his plan. Would you like to initiate prior authorization or send a different rx. Thank you. documented in this encounter Plan of Treatment Upcoming Encounters Date Type Specialty Care Team Description 04/24/2022 Appointment Laboratory Medicine Angélica Granger P.A.-C. [address] [place] [phone] 04/25/2022 Office Visit Otorhinolaryngology Dex Matta APRN, C.N.P., M.S.N. [address] [place] [phone] 05/08/2022 Appointment Laboratory Medicine Angélica Granger P.A.-C. [address] [place] [phone] 05/08/2022 Clinical Admitting/Central Communication Scheduling 05/10/2022 Appointment Radiology Jeremie Rose M.D. [address] [place] [phone] 05/10/2022 Comprehensive Visit Orthopedic Surgery Warner Graves M.D. [address] [place] [phone] 05/22/2022 Appointment Laboratory Medicine Angélica Granger P.A.-C. [address] [place] [phone] 06/05/2022 Appointment Laboratory Medicine Angélica Granger P.A.-C. [address] [place] [phone] 06/19/2022 Appointment Laboratory Medicine Angélica Granger P.A.-C. [address] [place] [phone] 07/03/2022 Appointment Laboratory Medicine Angélica Granger P.A.-C. [address] [place] [phone] 07/17/2022 Appointment Laboratory Medicine Angélica Granger P.A.-C. [address] [place] [phone] 07/31/2022 Appointment Laboratory Medicine Angélica Granger P.A.-C. [address] [place] [phone] 08/14/2022 Appointment Laboratory Medicine Angélica Granger P.A.-C. [address] [place] [phone] 08/28/2022 Appointment Laboratory Medicine Angélica Granger P.A.-C. [address] [place] [phone] documented as of this encounter Visit Diagnoses Not on filedocumented in this encounter Additional Health Concerns Infection Onset Date Last Indicated Resolved Time COVID19 Pending 01/04/2021 01/04/2021 01/04/2021 9:44 PM CDT Assessment Noted Time PHQ-9 Depression Total Score: 4 11/28/2020 10:17 AM CD T documented as of this encounter Care Teams Linotyper Relationship Specialty Start Date End Date Elsewhere, Pcp PCP - General Family Medicine 07/29/17 [facility] - Laboratory Medicine 04/12/[address] [address] documented as of this encounter
--- OUTSIDE RECORDS SUMMARY | 2022-04-13 12:17 | XMS_ITS | Encounter Summary ---
:1955 [facility] Address [address] [place] [id number] Care Team Providers Name Role Phone Elsewhere, Pcp Primary Care Provider Unavailable Reason for Visit Speech Pathology (Routine) - Closed Specialty Diagnoses / Procedures Referred By Contact Refer red To Contact Diagnoses Cough Unspecified Type Pneumonitis Due To Inhalation Of Food And Vomit (HCC) [facility] Procedures DIE SIZER Dysphagia evaluate and treat M.B.B.S. [address] [place] [phone] Referral ID Status Reason Start Date Expiration Date Visits Requ ested Visits Authorized [id number] Closed 10/13/2020 10/13/2021 99 99 Encounter Details Date Type Department Care Team Description 11/29/2020 Comprehensive Visit Department of Genesis Aaron M.B.B.S. 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 Singh is a very pleasant 65-year-old male referred by Pulmonary Medicine for a videofluoroscopic evaluation. He has history significant for, but not limited to, liver transplant in 1998 and Re transplant in 2012, left renal artery stenosis, chronic kidney disease, chronic sinusitis, hypothyroidism, and recent COVID infection end of October. He has experienced a cough since August of [address] demonstrated diffuse bronchial wall thickening. An esophagram completed April 2020 was normal. He is sent for a videofluoroscopic evaluation to rule out prandial aspiration. Please see clinical notes for complete history and details. Mr. Singh attends today's evaluation session independently. He does not endorse difficulty swallowing food, liquid, or pills. He denies any coughing when he drinks liquids. He has lost approximately 10 lb in the last 6 months, but attributes this to multiple factors. He denies any odynophagia or speech or voice changes. He describes waking up coughing in the middle of the night on occasion, but otherwise see notes most coughing once he is up and moving around in the morning and described thick mucus and nasal drainage which leads to nausea. OBJECTIVE Oral Motor: Oral Motor Dentition: Adequate Labial Structure and Function Labial Structure and Function: Within Normal Limits (WNL) Lingual Structure and Function Lingual Structure and Function: Within Normal Limits (WNL) Motor Speech: Voice: Within Normal Limits (WNL) Resonance (LUG LOADER Function): Within Normal Limits (WNL) Articulation: Within Normal Limits (WNL) Most Recent Value Description of Procedure Planes Tested Lateral, AP Type Assessment MBS IMP Statement of Consent Yes, Discussed goals, risks, alternatives, and the necessity of other members of the procedureal team participating in the procedure with the patient. Consistencies Assessed (MBS) Consistencies Assessed Yes Thin Penetration/Aspiration Scale 1: Material does not enter airway Puree Penetration/Aspiration Scale 1: Material does not enter airway Solid/Regular Penetration/Aspiration Scale 1: Material does not enter airway Oral impairment: 0 Pharyngeal impairment: 0 Esophageal impairment: 0 Assessment During the videofluoroscopic swallow study, lateral and AP views were recorded as the patient swallowed thin barium, nectar-thick barium (AP view only), applesauce, and a cookie. Oral control of all consistencies was good. The pharyngeal swallow triggered at the level of the vallecula. Range of tonguebase retraction, hyolaryngeal excursion, and epiglottic inversion were within normal limits and offered adequate airway protection. There was no evidence of laryngeal penetration or aspiration with anytest consistencies during today's evaluation. Each bolus efficiently cleared the pharynx with a single swallow. AP view revealed symmetrical flow through the pharynx. Relaxation through the cricopharyngeal segment was good. Overall, the patient is demonstrating oropharyngeal swallow within normal limits. The results of today's swallow study were reviewed in detail with the patient. It is anticipated he will continue safe and adequate oral intake at this time. Patient was encouraged to contact primary physician should symptoms of dysphagia worsen. Contact Monitoring: Clinician was wearing the following PPE for the duration of today's session(s): surgical mask Functional Oral Intake Scale: Level 7 - Total oral diet with no restrictions Diagnosis: Oropharyngeal swallow within normal limits; no prandial aspiration Plan DYSPHAGIA RECOMMENDATIONS: 1. Patient is safe to consume a general diet with thin liquids at his discretion. 2. Follow-up with speech pathology should symptoms of dysphagia change or worsen. Electronically signed by Tereza Smith M.S., [facility] at 11/29/2020 2:07 PM CDT documented in this encounter Plan of Treatment Upcoming Encounters Date Type Specialty Care Team Description 04/24/2022 Appointment Laboratory Medicine Angélica Granger P.A.-C. [address] [place] [phone] 04/25/2022 Office Visit Otorhinolaryngology Dex Matta APRN, C.N.P., M.S.N. [address] [place] [phone] 05/08/2022 Appointment Laboratory Medicine Angélica Granger P.A.-Janette [address] [place] [phone] 05/08/2022 Clinical Admitting/Central Communication Scheduling 05/10/2022 Appointment Radiology Jeremie Rose M.D. [address] [place] [phone] 05/10/2022 Comprehensive Visit Orthopedic Surgery Warner Graves M.D. [address] [place] [phone] 05/22/2022 Appointment Laboratory Medicine Angélica Granger P.A.-C. [address] [place] [phone] 06/05/2022 Appointment Laboratory Medicine Angélica Granger P.A.-C. [address] [place] [phone] 06/19/2022 Appointment Laboratory Medicine Angélica Granger P.A.-C. [address] [place] [phone] 07/03/2022 Appointment Laboratory Medicine Angélica Granger P.A.-C. [address] [place] [phone] 07/17/2022 Appointment Laboratory Medicine Angélica Granger P.A.-C. [address] [place] [phone] 07/31/2022 Appointment Laboratory Medicine Angélica Granger P.A.-C. [address] [place] [phone] 08/14/2022 Appointment Laboratory Angélica Royal P.A.-C. [address] [place] [phone] 08/28/2022 Appointment Laboratory Medicine Angélica Granger P.A.-C. [address] [place] [phone] documented as of this encounter Visit Diagnoses Diagnosis Dysphagia Oropharyngeal Phase - Primary Cough Unspecified Type Pneumonitis Due To Inhalation Of Food An d Vomit ([facility]) documented in this encounter Additional Health Concerns Assessment Noted Time PHQ-9 Depression Total Score: 4 11/28/2020 10:17 AM CD T documented as of this encounter Care Teams Lombardi Developer Relationship Specialty Start Date End Date Elsewhere, Pcp PCP - General Family Medicine 07/29/17 [facility] - Laboratory Medicine 04/12/[address] [address] documented as of this encounter
--- OUTSIDE RECORDS SUMMARY | 2022-04-13 12:17 | XMS_ITS | Encounter Summary ---
:1955 Author Organization [facility] Address [address] [place] [address] Care Team Providers Name Role Phone Elsewhere, Pcp Primary Care Provider Unavailable Reason for Visit Outpatient (Routine) - Closed Specialty Diagnoses / Procedures Referred By Contact Refer red To Contact Pulmonary Medicine Diagnoses Bronchitis Chronic ([facility]) [facility] [address] [place] [address] Referral ID Status Reason Start Date Expiration Date Visits V isits Requested Authorized [id number] Closed Specialty 11/27/2020 11/27/2021 1 1 Services Required Encounter Details Date Type Department Care Team Description 12/08/2020 Office Visit Division of Pulmonary Connie Aaron Chronic Medicine in , M.B.B.S. ([facility]) [place], [place] [address] [place] [address] 200 [place] [phone] Social History Tobacco Use Types Packs/Day Years [...] 12/15/2021 organizations such as gnosticism groups, unions, [employer] labs or athletic groups, or school groups? 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 - 12/08/2020 4:00 PM CDT SUBJECTIVE CHIEF COMPLAINT / REASON FOR VISIT Bruce Singh is a 65 y.o. male who presents for evaluation of chronic cough HISTORY OF PRESENT ILLNESS Mr. 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 He is well known to the pulmonaryclinic and was previously evaluated by Dr. Simon, I had the pleasure of meeting Mr. Singh for thefirst time 08/28/20 for further evaluation of chronic cough since August 2019 (please refer to the note for further details). Micro work up including Bronchoscopy and several sputum cultures for persistent tree in bud opacities, fleeting consolidation on CT chest scan have revealed few penicillium sp. Trial of inhalers, bronchial hygiene, short prednisone taper, antibiotics. PPI have not really helped. Since his last visit, all testing including swallow study, Esophageal PH monitoring and manometry are negative. He also tested positive for COVID-19 in October during a screening test for a procedure and received monoclonal antibodies. He remained stable from a pulmonary perspective with chronic cough buthad increasing nausea and fatigue requiring hospitalization for one day without COVID-directed therapies. [place] a dose of steroid in the ED improved his nausea and so was able to eat. Today, he states he feels about the same but is really fatigued, continues to have a chronic productive cough, post nasal drip which is worse at night and wakes him up. He feels jittery with albuterol. CXR 11/27 with hyperinflation, diffuse central bronchial thickening CT 09/27/20: Increased bilateral lower lobe and right upper lobe posterior infectious/inflammatory bronchiolitis and clustered nodularities. In the presence of a small sliding esophageal hiatal hernia, findings likely represent recurrent aspiration OBJECTIVE PHYSICAL EXAM Constitutional General: He is not in acute distress. Appearance: He is normal weight. Comments: Frail and tired Cardiovascular Rate and Rhythm: Normal rate and regular rhythm. Pulmonary Effort: Pulmonary effort is normal. Breath sounds: No stridor. No rhonchi. Comments: Prolonged expiratory phase Abdominal General: Abdomen is flat. There is no distension. Palpations: Abdomen is soft. Musculoskeletal Right lower leg: No edema. Left lower leg: No edema. Neurological General: No focal deficit present. Mental Status: He is alert and oriented to person, place, and time. ASSESSMENT / PLAN #1 Cough #2 Chronic rhinosinusitis #3 Postnasal drip #4 COPD #5 Bilateral lower lobe nodularities suspicious for Aspiration #6 Recent COVID-19 infection October 2020 s/p monoclonal antibodies #7 Autoimmune hepatitis status post orthotopic liver transplant in 1998 and 2012 #8 Chronic immunosuppression with prednisone, tacrolimus and CellCept ?? It was a pleasure meeting with Mr. Singh this afternoon. We had the opportunity to discuss resultsof the CT scan, swallow study, pH impedance and manometry and prior treatment trials. He continues to have chronic cough that has been unresponsive to inhaler, bronchial hygiene regimen, antibiotics and steroids. CT scan suggestive of aspiration which he feels occurs mostly at night. We have discussed extensively aspiration precautions and inhaler therapy. He intends to trial sleeping on the recliner , having his last meal by 6:00 p.m., and a trial of inhaled budesonide and Spiriva. He feels very jittery with albuterol and therefore decided to avoid a LABA at this time but with con sideration in the future. He will continue with nasal rinses. Recently received IV iron for anemia which will hopefully help with shortness of breath. Normal saturations on prior testing and recent hospital visit. He will contact me within the next month to see how things are going Answers for HPI/ROS submitted by the patient [...] Laboratory Medicine Angélica Granger P.A.-C. [address] [place] [phone] 04/25/2022 Office Visit Otorhinolaryngology Dex Matta APRN, C.N.P., M.S.N. [address] [place] [phone] 05/08/2022 Appointment Laboratory Medicine Angélica Granger P.A.-C. [address] [place] [phone] 05/08/2022 Clinical Admitting/Central Communication Scheduling 05/10/2022 Appointment Radiology Jeremie Rose M.D. [address] [place] [phone] 05/10/2022 Comprehensive Visit Orthopedic Surgery Warner Graves M.D. [address] [place] [phone] 05/22/2022 Appointment Laboratory Medicine Angélica Granger P.A.-C. [address] [place] [phone] 06/05/2022 Appointment Laboratory Medicine Angélica Granger P.A.-C. [address] [place] [phone] 06/19/2022 Appointment Laboratory Medicine Angélica Granger P.A.-C. [address] [place] [phone] 07/03/2022 Appointment Laboratory Medicine Angélica Granger P.A.-C. [address] [place] [phone] 07/17/2022 Appointment Laboratory Medicine Angélica Granger P.A.-C. [address] [place] [phone] 07/31/2022 Appointment Laboratory Medicine Angélica Granger P.A.-C. [address] [place] [phone] 08/14/2022 Appointment Laboratory Medicine Angélica Granger P.A.-C. [address] [place] [phone] 08/28/2022 Appointment Laboratory Medicine Angélica Granger P.A.-C. [address] [place] [phone] documented as of this encounter Visit Diagnoses Diagnosis Bronchitis Chronic (HCC) documented in this encounter Additional Health Concerns Assessment Noted Time PHQ-9 Depression Total Score: 4 11/28/2020 10:17 AM CD T documented as of this encounter Care Teams Python Django Developer Relationship Specialty Start Date End Date Elsewhere, Pcp PCP - General Family Medicine 07/29/17 [facility] - Laboratory Medicine 04/12/[address] [address] documented as of this encounter
--- OUTSIDE RECORDS SUMMARY | 2022-04-13 12:17 | XMS_ITS | Encounter Summary ---
:1955 Author Organization [facility] Address [address] [place] [address] Care Team Providers Name Role Phone Elsewhere, Pcp Primary Care Provider Unavailable Reason for Referral Outpatient (Routine) - Closed Specialty Diagnoses / Procedures Referred By Contact Refer red To Contact Diagnoses Cough Unspecified Type Pneumonitis Due To Inhalation Of Food And Vomit (HCC) [facility] Procedures [place] Swallow Function with Video and Speech or OT M.B.B.S. 200 [place], [place] [phone] Referral ID Status Reason Start Date Expiration Date Visits Requ ested Visits Authorized [id number] Closed 10/13/2020 10/13/2021 1 1 Reason for Visit Outpatient (Routine) - Closed Specialty Diagnoses / Procedures Referred By Contact Refer red To Contact Diagnoses Cough Unspecified Type Pneumonitis Due To Inhalation Of Food And Vomit (HCC) Connie Aaron [facility] Procedures [place] Swallow Function with Video and Speech or OT M.B.B.S. 200 [place], [place] [phone] Referral ID Status Reason Start Date Expiration Date Visits Requ ested Visits Authorized [id number] Closed 10/13/2020 10/13/2021 1 1 Encounter Details Date Type Department Care Team Description 11/29/2020 Hospital Encounter Department of Zeeshan Aaron M.B.B.S. 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 0 2017 tablet coenzyme Q10 (CO Q-10) Take 1 capsule [...] solution nebulization 2 (two) times a day. atorvastatin (LIPITOR) Take 1 tablet (10 mg 90 tablet 3 03/05/2021 10 mg tablet total) by mouth daily. budesonide (Pulmicort) Mix 1 ampule in 120 [...] 1 tablet (4 mg 90 tablet 3 03/1703/05/2021 mg tabletIndications: total) by mouth Hypertension Essential daily. Primary fluticasone propionate Administer 2 sprays 64 g 11 06/201905/24/2021 (FLONASE) 50 into each nostril 2 mcg/actuation nasal (two) times a day. spray lamoTRIgine (LaMICtal) TAKE 1 TABLET BY 200 tablet 3 021 10/22/2021 200 mg tablet MOUTH TWICE DAILY levothyroxine TAKE 1 TABLET BY 90 tablet 3 12/01/201912/12 (SYNTHROID, LEVOTHROID) MOUTH EVERY MORNING 25 mcg tablet 30 MINUTES BEFORE BREAKFAST multivitamin tablet Take 1 tablet by 0 [...] mouth Transplant Liver (HCC), daily. Medication Therapy Bulk Pigment Reducer Not Anticoagulant sodium chloride USE 4 ML VIA 0 08/30/2020 021 (NEBUSAL) 3 % nebulizer NEBULIZER TWICE solution DAILY tacrolimus (PROGRAF) Take 2 capsules (1 360 capsule 3 202007/16/2021 0.5 mg mg total) by mouth 2 capsuleIndications: (two) times a day. Transplant Liver (HCC), Medication Therapy [facility] Not Anticoagulant torsemide (DEMADEX) 10 Take 3 tablets (30 270 tablet 3 05/2202/22/2021 mg tablet mg total) by mouth daily. documented as 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 [address] [place] [phone] 04/25/2022 Office Visit Otorhinolaryngology Dex Matta APRN, C.N.P., M.S.N. [address] [place] [phone] 05/08/2022 Appointment Laboratory Medicine Angélica Granger P.A.-C. [address] [place] [phone] 05/08/2022 Clinical Admitting/Central Communication Scheduling 05/10/2022 Appointment Radiology Jeremie Rose M.D. [address] [place] [phone] 05/10/2022 Comprehensive Visit Orthopedic Surgery Warner Graves M.D. [address] [place] [phone] 05/22/2022 Appointment Laboratory Medicine Angélica Granger P.A.-C. [address] [place] [phone] 06/05/2022 Appointment Laboratory Medicine Angélica Granger P.A.-C. [address] [place] [phone] 06/19/2022 Appointment Laboratory Medicine Angélica Granger P.A.-C. [address] [place] [phone] 07/03/2022 Appointment Laboratory Medicine Angélica Granger P.A.-C. [address] [place] [phone] 07/17/2022 Appointment Laboratory Medicine Angélica Granger P.A.-C. [address] [place] [phone] 07/31/2022 Appointment Laboratory Medicine Angélica Granger P.A.-C. [address] [place] [phone] 08/14/2022 Appointment Laboratory Medicine Angélica Granger P.A.-C. [address] [place] [phone] 08/28/2022 Appointment Laboratory Medicine Angélica Granger P.A.-C. [address] [place] [phone] documented as of this encounter Procedures Procedure Name Priority Date/Time Associated Comments Diagnosis FL SWALLOW RAD - Routine 11/29/2020 1:40 Cough Results for this FUNCTION WITH (most inpatients PM CDT Pneumonitis Due procedu re are in VIDEO AND SPEECH and all To Inhalation Of the res ults OR OT FOR RST outpatients) Food And Vomit section. ([facility]) documented in this encounter Results FL Swallow Function with Video and Speech or OT (11/29/2020 1:40 PM CDT) Anatomical Region Laterality Modality Gastro Intestinal, Abdominal RST LOS, Abdominal ARZ N/A Digital Radiography LOS, Abdominal FLA LOS Specimen (Source) Anatomical Collection Method Collection Time Re ceived Time Location / / Volume Laterality 11/29/2020 1:42 PM CDT Impressions 11/29/2020 1:43 PM CDT A video swallow study was performed in conjunction with speech pathology using thin liquid barium, nect ar thickened barium, applesauce, and cookie consistencies. Normal swallowing mechanism. No penetration or aspiration with any tested consistency. Please see speech pathology report for additional details and recommendations. Narrative 11/29/2020 1:43 PM CDT EXAM: ??FL SWALLOW FUNCTION WITH VIDEO AND SPEECH OR OT FOR RST COMPARISON: ??Esophagram 05/22/2020 Procedure Note Leonid Carey M.D. - 11/29/2020Forma tting of this note might be different from the original. EXAM: FL SWALLOW FUNCTION WITH VIDEO AND SPEECH OR OT FOR RST COMPARISON: Esophagram 05/22/2020 IMPRESSION: A video swallow study was performed in c onjunction with speech pathology using thin liquid barium, nect ar thickened barium, applesauce, and cookie consistencies. Normal swallowing mechanism. No penetration or aspiration with any tested consistency. Please see speech pathology report for additional details and recommendations. Connie Barron IMG FLUOROSCOPY PROCEDURES documented in this encounter Visit Diagnoses Diagnosis Cough Unspecified Type Pneumonitis Due To Inhalation Of Food An d Vomit (HCC) documented in this encounter Administered Medications Inactive Administered Medications - up to 3 most recent administrations Medication Order MAR Action Action Date Dose Rate Site barium 40 % (w/v) suspension Given 11/29/2020 1:41 PM CDT 20 mL Code/trauma/sedation medication, Starting on Fri11/29/20 at 1341 barium 81 % (w/w) oral powder for suspension Given 1:41 PM CDT 50 mL (VARIBAR THIN LIQUID) oral, Code/trauma/sedation medication, Starting on Fri11/29/20 at 1341 documented in this encounter Additional Health Concerns Assessment Noted Time PHQ-9 Depression Total Score: 4 11/28/2020 10:17 AM CD T documented as of this encounter Care Teams Cigar Packer And Picker Relationship Specialty Start Date End Date Elsewhere, Pcp PCP - General Family Medicine 07/29/17 [facility] - Laboratory Medicine 04/12/[address] [address] documented as of this encounter
--- OUTSIDE RECORDS SUMMARY | 2022-04-13 12:17 | XMS_ITS | Encounter Summary ---
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 [address] [place] [phone] 04/25/2022 Office Visit Otorhinolaryngology Dex Matta APRN, C.N.P., M.S.N. [address] [place] [phone] 05/08/2022 Appointment Laboratory Medicine Angélica Granger P.A.-C. [address] [place] [phone] 05/08/2022 Clinical Admitting/Central Communication Scheduling 05/10/2022 Appointment Radiology Jeremie Rose M.D. [address] [place] [phone] 05/10/2022 Comprehensive Visit Orthopedic Surgery Warner Graves M.D. [address] [place] [phone] 05/22/2022 Appointment Laboratory Medicine Angélica Granger P.A.-C. [address] [place] [phone] 06/05/2022 Appointment Laboratory Medicine Angélica Granger P.A.-C. [address] [place] [address] [phone] 06/19/2022 Appointment Laboratory Medicine Angélica Granger P.A.-C. [address] [place] [phone] 07/03/2022 Appointment Laboratory Medicine Angélica Granger P.A.-C. [address] [place] [phone] 07/17/2022 Appointment Laboratory Medicine Angélica Granger P.A.-C. [address] [place] [phone] 07/31/2022 Appointment Laboratory Medicine Angélica Granger P.A.-C. [address] [place] [phone] 08/14/2022 Appointment Laboratory Medicine Angélica Granger P.A.-C. [address] [place] [phone] 08/28/2022 Appointment Laboratory Medicine Angélica Granger P.A.-C. [address] [place] [phone] documented as of this encounter Procedures Procedure Name Priority Date/Time Associated Comments Diagnosis DERMATOLOGY IMAGE Routine 11/30/2020 12:00 Result s for this EXAM AM CDT procedure are i n the results section. documented in this encounter Results ear, right conchal bowl 124 Electrodessication and curettag-Dermatology Image Exam (11/30/2020 12:00AM CDT) Specimen (Source) Anatomical Location Collection Method / Collectio n Time Received Time / Laterality Volume Narrative IIMS - 11/30/2020 2:13 PM CDT This order has been created [...] as of this encounter Care Teams Rn Radiation Relationship Specialty Start Date End Date Elsewhere, Pcp PCP - General Family Medicine 07/29/17 [facility] - Laboratory Medicine 04/12/[address] [address] documented as of this encounter
--- OUTSIDE RECORDS SUMMARY | 2022-04-13 12:17 | XMS_ITS | Encounter Summary ---
:1955 Author Organization [facility] Address [address] [place] [address] Care Team Providers Name Role Phone Elsewhere, Pcp Primary Care Provider Unavailable Reason for Visit Reason Comments Faxed outside lab order Encounter Details Date Type Department Care Team Description 11/30/2020 Clinical Division of Mirian Ramirez Faxed outsid e lab Communication Nephrology and R, ENAMEL BUFFER, order Hypertension in C.N.P., M.S.N. [place], [place] [address] [place] [address] [address] [place] [phone] Social History Tobacco Use Types Packs/Day Years [...] More than 4 times per year 12/15/2021 [employer]? 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 Mailed a copy to Mr.Daryl Julian Singh[address] [place] [phone]. documented in this encounter Plan of Treatment Upcoming Encounters Date Type Specialty Care Team Description 04/24/2022 Appointment Laboratory Medicine Angélica Granger P.A.-C. [address] [place] [phone] 04/25/2022 Office Visit Otorhinolaryngology Dex Matta APRN, C.N.P., M.S.N. [address] [place] [phone] 05/08/2022 Appointment Laboratory Medicine Angélica Granger P.A.-C. [address] [place] [phone] 05/08/2022 Clinical Admitting/Central Communication Scheduling 05/10/2022 Appointment Radiology Jeremie Rose M.D. [address] [place] [phone] 05/10/2022 Comprehensive Visit Orthopedic Surgery Warner Graves M.D. [address] [place] [phone] 05/22/2022 Appointment Laboratory Medicine Angélica Granger P.A.-C. [address] [place] [phone] 06/05/2022 Appointment Laboratory Medicine Angélica Granger P.A.-C. [address] [place] [phone] 06/19/2022 Appointment Laboratory Medicine Angélica Granger P.A.-C. [address] [place] [phone] 07/03/2022 Appointment Laboratory Medicine Angélica Granger P.A.-C. [address] [place] [phone] 07/17/2022 Appointment Laboratory Medicine Angélica Granger P.A.-C. [address] [place] [phone] 07/31/2022 Appointment Laboratory Medicine Angélica Granger P.A.-C. [address] [place] [phone] 08/14/2022 Appointment Laboratory Medicine Angélica Granger P.A.-C. [address] [place] [phone] 08/28/2022 Appointment Laboratory Medicine Angélica Granger P.A.-C. [address] [place] [phone] documented as of this encounter Visit Diagnoses Not on filedocumented in this encounter Additional Health Concerns Assessment Noted Time PHQ-9 Depression Total Score: 4 11/28/2020 10:17 AM CD T documented as of this encounter Care Teams Talent Manager Relationship Specialty Start Date End Date Elsewhere, Pcp PCP - General Family Medicine 07/29/17 [facility] - Laboratory Medicine 04/12/[address] [address] documented as of this encounter
--- OUTSIDE RECORDS SUMMARY | 2022-04-13 12:17 | XMS_ITS | Encounter Summary ---
:1955 Author Organization [facility] Address [address] [place] [address] Care Team Providers Name Role Phone Elsewhere, Pcp Primary Care Provider Unavailable Reason for Visit Transplant (Routine) - Closed Specialty Diagnoses / Procedures Referred By Contact Refer red To Contact Transplant Surgery / Salvador Douglas M.D. [address] [place] [address] Referral ID Status Reason Start Date Expiration Date Visits Requ ested Visits Authorized [id number] Closed 08/25/2018 08/25/2019 1 1 Encounter Details Date Type Department Care Team Description 11/28/2020 Office Visit Salvador Carrizales M.D. [address] [place] [address] Transplant Liver (HCC); Waleska Dunn M.D. 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 - 11/28/2020 10:30 AM CDT SUBJECTIVE CHIEF COMPLAINT/REASON FOR VISIT Followup for bipolar disorder. HISTORY OF PRESENT ILLNESS Mr. Singh is a now 65-year-old who has a psychiatric history significant for bipolar disorder typeI. He is currently on lamotrigine. He also has a medical history significant for chronic kidney disease, hypertension, left renal artery stenosis and he is being evaluated for transplant. He has a longstanding history of bipolar disorder and has been doing well on lamotrigine 400 mg. He takes 200+200 mg. He also has a prior diagnosis of alcohol use disorder, which has been in sustained full remission. He has undergone a liver transplantation in 2013. From a mood standpoint, he tells me that things are going well. He was a little sick with COVID. He got it even after his vaccination, but he had a fever for 2 days and things settled down. He does notnote any current COVID-related symptoms. From a mood standpoint, he notes that he is doing well. He describes a stable mood. He has been sleeping reasonably well. He does not note any anhedonia. He tends to spend time on his motorcycle and helikes that. He would previously golf, but does not find that he has enough energy to do that. He notes that his last use of alcohol was many years ago. He does not experience any cravings. He does not describe any desire to drink. OBJECTIVE MENTAL STATUS EXAMINATION: Appearance/Behavior: Mr. Singh is a pleasant 65-year-old who appears his stated age. He engaged well with the interview process. He was cooperative. Speech/Language: Normal in rate and volume. Relevant and coherent with no speech abnormalities. Mood/Affect: Affect was euthymic with normal range and reactivity to affect. Affect was mood congruent. Thought Form: Thoughts--linear and goal directed with no thought form abnormality. No delusions or thought possession abnormalities noted. Perception: No perceptual abnormalities noted. Cognition/Memory: The patient was oriented to time, place, and person. During the interview the patient appeared to have normal medium- to long-term memory and no short-term memory difficulties were noted. Attention span and concentration were normal. Judgment appeared to be intact, and fund of knowledge was appropriate per the interview. Risk: Based on current interview no suicidal thoughts and no imminent risk to self were identified. No imminent risk to others was identified. Insight/Motivation: Insight was fair. ASSESSMENT / PLAN #1 Bipolar disorder, currently in remission #2 Moderate alcohol use disorder, currently in sustained full remission PLAN: 1. He will continue on lamotrigine 200+200 mg. He is doing quite well on it. 2. He remains acceptable for a kidney transplantation. No current concerns. 3. He will continue to maintain complete ongoing abstinence from alcohol and other illicit drugs going forward. 4. Followup can be in 6 months' time. Total time 30 minutes. Waleska Daniel M.D. CT CT Job ID: [id number] documented in this encounter Plan of Treatment Upcoming Encounters Date Type Specialty Care Team Description 04/24/2022 Appointment Laboratory Medicine Angélica Granger P.A.-C. [address] [place] [phone] 04/25/2022 Office Visit Otorhinolaryngology Dex Matta APRN, C.N.P., M.S.N. [address] [place] [phone] 05/08/2022 Appointment Laboratory Medicine Angélica Granger P.A.-CDemetrius [address] [place] [phone] 05/08/2022 Clinical Admitting/Central Communication Scheduling 05/10/2022 Appointment Radiology Jeremie Rose M.D. [address] [place] [phone] 05/10/2022 Comprehensive Visit Orthopedic Surgery Warner Graves M.D. [address] [place] [phone] 05/22/2022 Appointment Laboratory Medicine Angélica Granger P.A.-C. [address] [place] [address] [phone] 06/05/2022 Appointment Laboratory Medicine Angélica Granger P.A.-C. [address] [place] [address] [phone] 06/19/2022 Appointment Laboratory Medicine Angélica Granger P.A.-C. [address] [place] [address] [phone] 07/03/2022 Appointment Laboratory Medicine Angélica Granger P.A.-CDemetrius [address] [place] [phone] 07/17/2022 Appointment Laboratory Medicine Angélica Granger P.A.-CDemetrius [address] [place] [phone] 07/31/2022 Appointment Laboratory Medicine Angélica Granger P.A.-C. [address] [place] [phone] 08/14/2022 Appointment Laboratory Medicine Angélica Granger P.A.-C. [address] [place] [phone] 08/28/2022 Appointment Laboratory Medicine Angélica Granger P.A.-CDemetrius [address] [place] [phone] documented as of this encounter Visit Diagnoses Diagnosis Transplant Liver (HCC) Medication Therapy Associate Professor Of Economics Not Anticoa gulant Cirrhosis Cryptogenic (HCC) Screening Examination Prostate Cancer Screening Examination Skin Cancer documented in this encounter Additional Health Concerns Assessment Noted Time PHQ-9 Depression Total Score: 4 11/28/2020 10:17 AM CD T documented as of this encounter Care Teams Repair Welder Relationship Specialty Start Date End Date Elsewhere, Pcp PCP - General Family Medicine 07/29/17 [facility] - Laboratory Medicine 04/12/[address] [address] documented as of this encounter
--- OUTSIDE RECORDS SUMMARY | 2022-04-13 12:17 | XMS_ITS | Encounter Summary ---
:1955 Author Organization [facility] Address [address] [place] [address] Care Team Providers Name Role Phone Elsewhere, Pcp Primary Care Provider Unavailable Reason for Visit Reason Comments Chronic Kidney Disease CKD Enroll Outpatient (Routine) - Closed Specialty Diagnoses / Procedures Referred By Contact Refer red To Contact Nephrology and Ellen Rangel [facility] ramy Hypertension Sada [address] [place] [phone] Referral ID Status Reason Start Date Expiration Date Visits Requ ested Visits Authorized [id number] Closed 11/27/2020 11/27/2021 1 1 Encounter Details Date Type Department Care Team Description 11/29/2020 Nurse Only Division of Nephrology Ellen Rangel M.D. 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 - 11/29/2020 3:00 PM CDT Provider Name: Dr. Rangel Reason for Visit: CKD Enroll Relevant History: hypertension and kidney disease Preferred arm use for BP: Either. Date last assessed: 11/29/20 Home BP Monitor: Yes Date last assessed: never Exercise: No, he reports fatigue and shortness of breath Patient's weight is: Patient's weight is stable. Tobacco Use: Social History Tobacco Use Smoking Status Never Smoker Smokeless Tobacco Never Used Alcohol Use: Social History Substance and Sexual Activity Alcohol Use No Dietary Assessment: does not add salt to food, does not add salt when cooking, does not read food labels for sodium content and drinks roughly 1.5-2 Liters of fluid per day Patient states he does not urinate often during the day but urinates 5-6 times each night. Home blood pressure trends are 130-140s/70s. Vitals: 11/29/20 1451 11/29/20 1452 BP: 132/68 132/62 BP Location: Right arm Right arm Patient Position: Sitting Sitting Cuff Size: Regular Pulse: (!) 58 Weight: 79 kg Plan of Care: In-office blood pressures are: above goal. Dizziness/Lightheadedness: denies dizziness or lightheadedness at this time but is occasionally dizzy at home when getting up quickly. Recommendations given to: increase exercise, limit potassium, phoshporus and protein in your diet, follow a fliud restriction of 1.5 L per day, avoid use of NSAIDs, monitor and record BP and reviewed proper home BP monitoring technique Recommend having home blood pressure monitor assessed for accuracy on an annual basis. Instructed patient to call Nephrology & Hypertension Nurses if blood pressure is greater than 130/80 or less than 110 systolic or develops dizziness/lightheadedness. Medications: Continue on current medications for now. Patient Contact Information: Preferred contact: online message documented in this encounter Plan of Treatment Upcoming Encounters Date Type Specialty Care Team Description 04/24/2022 Appointment Laboratory Medicine Angélica Granger P.A.-C. [address] [place] [phone] 04/25/2022 Office Visit Otorhinolaryngology Dex Matta APRN, C.N.P., M.S.N. [address] [place] [phone] 05/08/2022 Appointment Laboratory Medicine Angélica Granger P.A.-C. [address] [place] [phone] 05/08/2022 Clinical Admitting/Central Communication Scheduling 05/10/2022 Appointment Radiology Jeremie Rose M.D. [address] [place] [phone] 05/10/2022 Comprehensive Visit Orthopedic Surgery Warner Graves M.D. [address] [place] [address] [phone] 05/22/2022 Appointment Laboratory Medicine Angélica Granger P.A.-C. [address] [place] [address] [phone] 06/05/2022 Appointment Laboratory Medicine Angélica Granger P.A.-C. [address] [place] [address] [phone] 06/19/2022 Appointment Laboratory Medicine Angélica Granger P.A.-C. [address] [place] [address] [phone] 07/03/2022 Appointment Laboratory Medicine Angélica Granger P.A.-C. [address] [place] [address] [phone] 07/17/2022 Appointment Laboratory Medicine Angélica Granger P.A.-C. [address] [place] [address] [phone] 07/31/2022 Appointment Laboratory Medicine Angélica Granger P.A.-C. [address] [place] [phone] 08/14/2022 Appointment Laboratory Medicine Angélica Granger P.A.-C. [address] [place] [phone] 08/28/2022 Appointment Laboratory Medicine Angélica Granger P.A.-C. [address] [place] [phone] documented as of this encounter Visit Diagnoses Diagnosis Chronic Kidney Disease Stage 4 Glomerula r Filtration Rate 15-29 (HCC) - Primary documented in this encounter Additional Health Concerns Infection Onset Date Last Indicated Resolved Time COVID19 Pending 01/04/2021 01/04/2021 01/04/2021 9:44 PM CDT COVID19 Pending 05/23/2021 05/23/2021 05/23/2021 11:53 AM PYROGLAZER COVID19 Pending 05/31/2021 05/31/2021 05/31/2021 3:24 PM PYROGLAZER Assessment Noted Time PHQ-9 Depression Total Score: 4 11/28/2020 10:17 AM CD T documented as of this encounter Care Teams Riveter Pneumatic Relationship Specialty Start Date End Date Elsewhere, Pcp PCP - General Family Medicine 07/29/17 [facility] - Laboratory Medicine 04/12/[address] [address] documented as of this encounter
--- OUTSIDE RECORDS SUMMARY | 2022-04-13 12:17 | XMS_ITS | Encounter Summary ---
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 - 12/12/2020 2:12 PM CDT Information Discussed Patient called in. He had electrodesiccation and curettage done on 11/30 on the right ryann bowl. Henotes that the area is swollen he thinks, has an odor, yellow drainage, and increased tenderness. Recommended he come in for a wound check and he was agreeable PLAN Disposition/Recommendation: patient transferred to the appointment desk Information/Education: patient/caller able to teach back Caller agreeable to plan of care: yes The following references were used: nursing clinical judgement documented in this encounter Plan of Treatment Upcoming Encounters Date Type Specialty Care Team Description 04/24/2022 Appointment Laboratory Medicine Angélica Granger P.A.-C. [address] [place] [phone] 04/25/2022 Office Visit Otorhinolaryngology Dex Matta APRN, C.N.P., M.S.N. [address] [place] [phone] 05/08/2022 Appointment Laboratory Medicine Angélica Granger P.A.-C. [address] [place] [address] [phone] 05/08/2022 Clinical Admitting/Central Communication Scheduling 05/10/2022 Appointment Radiology Jeremie Rose M.D. [address] [place] [phone] 05/10/2022 Comprehensive Visit Orthopedic Surgery Warner Graves M.D. [address] [place] [phone] 05/22/2022 Appointment Laboratory Medicine Angélica Granger P.A.-C. [address] [place] [phone] 06/05/2022 Appointment Laboratory Medicine Angélica Granger P.A.-C. [address] [place] [phone] 06/19/2022 Appointment Laboratory Medicine Angélica Granger P.A.-C. [address] [place] [phone] 07/03/2022 Appointment Laboratory Medicine Angélica Granger P.A.-C. [address] [place] [phone] 07/17/2022 Appointment Laboratory Medicine Angélica Granger P.A.-C. [address] [place] [phone] 07/31/2022 Appointment Laboratory Medicine Angélica Granger P.A.-C. [address] [place] [phone] 08/14/2022 Appointment Laboratory Medicine Angélica Granger P.A.-C. [address] [place] [phone] 08/28/2022 Appointment Laboratory Medicine Angélica Granger P.A.-C. [address] [place] [phone] documented as of this encounter Visit Diagnoses Not on filedocumented in this encounter Additional Health Concerns Assessment Noted Time PHQ-9 Depression Total Score: 4 11/28/2020 10:17 AM CD T documented as of this encounter Care Teams Gas Usage Meter Clerk Relationship Specialty Start Date End Date Elsewhere, Pcp PCP - General Family Medicine 07/29/17 [facility] - Laboratory Medicine 04/12/20 [place] [phone] documented as of this encounter
--- OUTSIDE RECORDS SUMMARY | 2022-04-13 12:17 | XMS_ITS | Encounter Summary ---
:1955 Author Organization [facility] Address [address] [place] [address] Care Team Providers Name Role Phone Elsewhere, Pcp Primary Care Provider Unavailable Reason for Visit Appointment Request (Routine) - Closed Specialty Diagnoses / Procedures Referred By Contact Refer red To Contact Referral ID Status Reason Start Date Expiration Date Visits Requ ested Visits Authorized [id number] Closed 12/12/2020 12/12/2021 1 1 Encounter Details Date Type Department Care Team Description 12/14/2020 Nurse Only Department of Dermatology in [place] Carroll M.D. 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 - 12/14/2020 1:20 PM CDT Patient returns for wound exam status post ED&C for Derm Diagnosis: Squamous Cell Carcinoma by Dr. Dorene Cruz ([id number]) on November 30, 2020 to [facility]. Patient discussed and seen with supervising senior information security consultant Supervising Physician:Derm Surgeons: Dr. Dorene Cruz ([id number]) and Dr. Mingo Aguila came to evaluate the patient who was complaining of ear pain. Dr. Aguila rinsed ear and removed excess ear wax and the patient stated he felt better. Wound cleansed with normal saline. Wound is Description of wound: healing well. Wound dressing No dressing was applied. Teaching provided to teach: patient. Evaluation of learning able to teach back. Time spent with patient 30 minutes. documented in this encounter Plan of Treatment Upcoming Encounters Date Type Specialty Care Team Description 04/24/2022 Appointment Laboratory Medicine Angélica Granger P.A.-C. [address] [place] [phone] 04/25/2022 Office Visit Otorhinolaryngology Dex Matta APRN CDemetriusNDemetriusPDemetrius, M.S.N. [address] [place] [phone] 05/08/2022 Appointment Laboratory Medicine Angélica Granger P.A.-C. [address] [place] [phone] 05/08/2022 Clinical Admitting/Central Communication Scheduling 05/10/2022 Appointment Radiology Jeremie Rose M.D. [address] [place] [phone] 05/10/2022 Comprehensive Visit Orthopedic Surgery Warner Graves M.D. [address] [place] [phone] 05/22/2022 Appointment Laboratory Medicine Angélica Granger P.A.-C. [address] [place] [phone] 06/05/2022 Appointment Laboratory Medicine Angélica Granger P.A.-C. [address] [place] [phone] 06/19/2022 Appointment Laboratory Medicine Angélica Granger P.A.-C. [address] [place] [phone] 07/03/2022 Appointment Laboratory Medicine Angélica Granger P.A.-C. [address] [place] [phone] 07/17/2022 Appointment Laboratory Medicine Angélica Granger P.A.-C. [address] [place] [phone] 07/31/2022 Appointment Laboratory Medicine Angélica Granger P.A.-C. [address] [place] [phone] 08/14/2022 Appointment Laboratory Medicine Angélica Granger P.A.-C. [address] [place] [phone] 08/28/2022 Appointment Laboratory Medicine Angélica Granger P.A.-C. [address] [place] [phone] documented as of this encounter Visit Diagnoses Not on filedocumented in this encounter Additional Health Concerns Assessment Noted Time PHQ-9 Depression Total Score: 4 11/28/2020 10:17 AM CD T documented as of this encounter Care Teams [place] Attorney Relationship Specialty Start Date End Date Elsewhere, Pcp PCP - General Family Medicine 07/29/17 [facility] - Laboratory Medicine 04/12/[address] [address] documented as of this encounter
--- OUTSIDE RECORDS SUMMARY | 2022-04-13 12:17 | XMS_ITS | Encounter Summary ---
:1955 Author Organization [facility] Address [address] [place] [address] Care Team Providers Name Role Phone Elsewhere, Pcp Primary Care Provider Unavailable Reason for Visit Reason Comments Rx Prior Authorization Encounter Details Date Type Department Care Team Description 11/29/2020 Clinical Division of Claire, Rocky Prior Communication Nephrology and Juan Hughes Hypertension in M.D. 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 Telephone Encounter - Paige Elena - 11/29/2020 12:41 PM CDT -Faxed Prior Authorization Request for??Ondansetron 4 MG to [facility] [phone]. Any questions please contact Prior Auth Team at [phone] [facility]. documented in this encounter Plan of Treatment Upcoming Encounters Date Type Specialty Care Team Description 04/24/2022 Appointment Laboratory Medicine Angélica Granger P.A.-C. [address] [place] [phone] 04/25/2022 Office Visit Otorhinolaryngology Dex Matta, RAMONA, C.N.P., M.S.N. [address] [place] [phone] 05/08/2022 Appointment Laboratory Medicine Angélica Granger P.A.-C. [address] [place] [phone] 05/08/2022 Clinical Admitting/Central Communication Scheduling 05/10/2022 Appointment Radiology Jeremie Rose M.D. [address] [place] [phone] 05/10/2022 Comprehensive Visit Orthopedic Surgery Warner Graves M.D. [address] [place] [address] [phone] 05/22/2022 Appointment Laboratory Medicine Angélica Granger P.A.-C. [address] [place] [address] [phone] 06/05/2022 Appointment Laboratory Medicine Angélica Granger P.A.-C. [address] [place] [phone] 06/19/2022 Appointment Laboratory Medicine Angélica Granger P.A.-C. [address] [place] [phone] 07/03/2022 Appointment Laboratory Medicine Angélica Granger P.A.-C. [address] [place] [phone] 07/17/2022 Appointment Laboratory Medicine Angélica Granger P.A.-C. [address] [place] [phone] 07/31/2022 Appointment Laboratory Medicine Angélica Granger P.A.-C. [address] [place] [phone] 08/14/2022 Appointment Laboratory Medicine Angélica Granger P.A.-C. [address] [place] [phone] 08/28/2022 Appointment Laboratory Medicine Angélica Granger P.A.-C. [address] [place] [phone] documented as of this encounter Visit Diagnoses Not on filedocumented in this encounter Additional Health Concerns Assessment Noted Time PHQ-9 Depression Total Score: 4 11/28/2020 10:17 AM CD T documented as of this encounter Care Teams Director Of Physical Education Relationship Specialty Start Date End Date Elsewhere, Pcp PCP - General Family Medicine 07/29/17 [facility] - Laboratory Medicine 04/12/[address] [address] documented as of this encounter
--- OUTSIDE RECORDS SUMMARY | 2022-04-13 12:17 | XMS_ITS | Encounter Summary ---
:1955 Author Organization [facility] Address [address] [place] [address] Care Team Providers Name Role Phone Elsewhere, Pcp Primary Care Provider Unavailable Reason for Referral Outpatient (Routine) - Closed Specialty Diagnoses / Procedures Referred By Contact Refer red To Contact Diagnoses Pretransplant Recipient Evaluation Exam Chronic Kidney Disease Stage 4 Glomerular Filtration Rate 15-29 (HCC) Akin Chavez M.D. [facility] Procedures Echo Stress [address] [place], [place] [phone] Referral ID Status Reason Start Date Expiration Date Visits Requ ested Visits Authorized [id number] Closed 09/15/2020 09/15/2021 1 1 Reason for Visit Outpatient (Routine) - Closed Specialty Diagnoses / Procedures Referred By Contact Refer red To Contact Diagnoses Pretransplant Recipient Evaluation Exam Chronic Kidney Disease Stage 4 Glomerular Filtration Rate 15-29 (HCC) Akin Chavez M.D. [facility] Procedures Echo Stress [address] [place], [place] [phone] Referral ID Status Reason Start Date Expiration Date Visits Requ ested Visits Authorized [id number] Closed 09/15/2020 09/15/2021 1 1 Encounter Details Date Type Department Care Team Description 11/28/2020 Hospital Encounter Department of Akin Chavez Pretrans plant Recipient Evaluation Exam; Cardiovascular Diseases Sada Osborn Chronic Kidney Disease Stage 4 Glomerula r Filtration Rate 15-29 (HCC) in [facility] jose [address] [facility], [address] [place] [phone] Social History Tobacco Use Types Packs/Day Years [...] at Date Recorded 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 albuterol (ACCUNEB) 2.5 Inhale 3 mL (2.5 [...] irrigation solution bottle and irrigate twice daily. budesonide (PULMICORT) Add 1 respule to 8 360 mL 3 07/2111/29/2020 0.5 mg/2 mL nebulizer ounces saline and solution irrigate each side of nose twice daily as directed. calcium carb/magnesium Take 2 tablets by 0 [...] mouth Transplant Liver (HCC), daily. Medication Therapy Residential Not Anticoagulant sodium chloride USE 4 ML VIA 0 08/30/2020 021 (NEBUSAL) 3 % nebulizer NEBULIZER TWICE solution DAILY tacrolimus (PROGRAF) Take 2 capsules (1 360 capsule 3 202007/16/2021 0.5 mg mg total) by mouth 2 capsuleIndications: (two) times a day. Transplant Liver (HCC), Medication Therapy Multimedia Author Not Anticoagulant torsemide (DEMADEX) 10 Take 3 tablets (30 270 tablet 3 05/2202/22/2021 mg tablet mg total) by mouth daily. documented as of this encounter Plan of Treatment Upcoming Encounters Date Type Specialty Care Team Description 04/24/2022 Appointment Laboratory Medicine Angléica Granger P.ADemetrius-C. [address] [place] [address] 04/25/2022 Office Visit Otorhinolaryngology Dex Matta APRN, C.N.P., M.S.N. [address] [place] [address] 05/08/2022 Appointment Laboratory Medicine Angélica Granger P.A.-CDemetrius [address] [place] [phone] 05/08/2022 Clinical Admitting/Central Communication Scheduling 05/10/2022 Appointment Radiology Jeremie Rose M.D. [address] [place] [phone] 05/10/2022 Comprehensive Visit Orthopedic Surgery Warner Graves M.D. [address] [place] [phone] 05/22/2022 Appointment Laboratory Medicine Angélica Granger P.A.-C. [address] [place] [phone] 06/05/2022 Appointment Laboratory Medicine Angélica Granger P.A.-C. [address] [place] [phone] 06/19/2022 Appointment Laboratory Medicine Angélica Granger P.A.-C. [address] [place] [phone] 07/03/2022 Appointment Laboratory Medicine Angélica Granger P.A.-C. [address] [place] [phone] 07/17/2022 Appointment Laboratory Medicine Angélica Granger P.A.-C. [address] [place] [phone] 07/31/2022 Appointment Laboratory Medicine Angélica Granger P.A.-C. [address] [place] [phone] 08/14/2022 Appointment Laboratory Medicine Angélica Granger P.A.-C. [address] [place] [phone] 08/28/2022 Appointment Laboratory Medicine Angélica Granger P.A.-C. [address] [place] [phone] documented as of this encounter Procedures Procedure Name Priority Date/Time Associated Diagnosis Comme nts ECHO STRESS 2D Routine 11/28/2020 1:51 PM Pretransplant Result s for this ONLY CDT Recipient Evaluation procedu re are in Exam the results Chronic Kidney Disease secti on. Stage 4 Glomerular Filtration Rate 15-29 (HCC) documented in this encounter Results ECHO STRESS 2D ONLY (11/28/2020 1:51 PM CDT) [facility] Method Time Signature Ejection Fraction 60 MC CV EIMS Wall Motion Score 1.00 MC CV EIMS Index LV Mass Index 129 MC CV EIMS LV End-Diastolic 54 MC CV EIMS Diameter LV End-Systolic 36 MC CV EIMS Diameter MV E Velocity 0.7 MC CV EIMS MV A Velocity 0.7 MC CV EIMS MV E/A 1.00 MC CV EIMS MV e' Velocity 0.08 MC CV EIMS Medial MV E/e' Medial 8.8 MC CV EIMS LV Interventricular 12 MC CV EIMS Septal Wall Thickness LV Posterior Wall 11 MC CV EIMS Thickness LV Relative Wall 41 MC CV EIMS Thickness RV 4-Chamber Basal 49 MC CV EIMS Diameter RV 4-Chamber Mid 40 MC CV EIMS Diameter RV 4-Chamber Length 87 MC CV EIMS TR Vmax 2.46 MC CV EIMS RA Pressure 5 MC CV EIMS RV Systolic Pressure 29 MC CV EIM S LA Volume Index 40 MC CV EIMS WMSI At Rest 1.00 MC CV EIMS WMSI At Peak Stress 1.00 MC CV EIMS Anatomical Region Laterality Modality Echocardiography Specimen (Source) Anatomical Collection Method Collection Time Re ceived Time Location / / Volume Laterality 11/28/2020 12:25 PM CDT Impressions 11/28/2020 2:53 PM CDT STRESS TEST: ??Dobutamine was infused from 5 mcg/kg/min to 30.0 mcg/kg/min. ??A dose of 0.75 mg of atropine was administered. ??A peak h eart rate of 134 BPM was achieved (87 % age-predicted maximal HR). ??The test was terminated d ue to target heart rate achievement. ??The baseline ECG demonstrated sinus rhythm. ??VPC's prese nt at stress. ??The stress ECG was negative for ischemia. Please see Nursing Notes for additional information. ??REST IMAGES: ??LEFT VENTRICLE: ??Mildly enlarged left ventricular chamber size. ??Calculated 2-D linear left ventricular ejection fraction 60 %. ??No regional wall motion abnormalities. ??Abnormal left ventricular geometry with eccentric left ventricular hypertrophy. ??Sigmoid ventricular septum with basal septal prominence: 15 mm ??Normal left ventricu lar filling pressure. ??RIGHT VENTRICLE: ??Mildly enlarged right ventricular chamber size. ??Normal right ventricular systolic function. ??Estimated right ventricular systolic pressure 29 mmHg as suming right atrial pressure of 5 mmHg. ??ATRIA: ??Mildly enlarged left atrial size. ??Strain imag ing examination performed to assess left atrial function. ??Global averaged left atrial longitudinal peak systolic strain is normal at 43.3 % (normal is greater than 35%). ??Normal r ight atrial size. ??CARDIAC VALVES: ??Trileaflet aortic valve. ??Calcified aortic valve. ??No ao rtic valve regurgitation. ??Thickened mitral valve. Mitral chordal systolic anterior motion; at peak infusion of dobutamine. ??Left ventricular outflow tract maximal instantaneous Dopp ler gradient 46 mm Hg. ??Mild mitral valve regurgitation. ??Normal pulmonary valve. ??Trivial pulmonary valve regurgitation. ??Normal tricuspid valve. ??Mild tricuspid valve regurgitation. ??OTHER ECHO FINDINGS: ??Normal inferior vena cava size with normal inspiratory c ollapse (>50%). ??Ascending aorta not well visualized. No intracardiac mass or thrombus identif ied. ??No pericardial effusion. ??STRESS IMAGES: Ejection fraction response from 60 % at rest to 70 % at peak stress. ??Left ventricular end-systolic volume decreased with stres s. ??No regional wall motion abnormalities with stress. Stress induced systolic anterior motion. ??Stress induced LVOT gradient/obstruction (peak velocity 3.5 m/sec, peak gradient 48 mm Hg) For the complete report, see the Order-L evel Documents. Narrative 11/28/2020 2:53 PM CDT For the complete report, see the Order[employer]Point MedicalL evel Documents. Final Impressions 1. Dobutamine stress echocardiogram nega tive for myocardial ischemia. 2. Ejection fraction response from 60 % at rest to 70 % at peak stress. 3. Left ventricular end-systolic volume decreased with stress. Comments There was dobutamine-induced systolic an terior motion of the mitral leaflet(s) and the development of a left ventricular outflo w tract gradient (peak velocity 3.5 m/sec, peak pressure gradient 48 mm Hg). Procedure Note Otoniel Blanton M.D. - 11/28/2020Form atting of this note might be different from the original. For the complete report, see the Order-L evSparkfly Documents. Final Impressions 1. Dobutamine stress echocardiogram nega tive for myocardial ischemia. 2. Ejection fraction response from 60 % at rest to 70 % at peak stress. 3. Left ventricular end-systolic volume decreased with stress. Comments There was dobutamine-induced systolic an terior motion of the mitral leaflet(s) and the development of a left ventricular outflo w tract gradient (peak velocity 3.5 m/sec, peak pressure gradient 48 mm Hg). Findings STRESS TEST: Dobutamine was infused from 5 mcg/kg/min to 30.0 mcg/kg/min. A dose of 0.75 mg of atropine was administered. A peak hea rt rate of 134 BPM was achieved (87 % age-predicted maximal HR). The test was terminated due to target heart rate achievement. The baseline ECG demonstrated sinus rhythm. VPC's present at stress. The stress ECG was negative for ischemia. Please see Nursing Notes for additional information. REST IMAGES: LEFT VENTRICLE: Mildly enlarged left ventricular chamber size. Calculated 2-D linear left ventricular ejection fraction 60 %. No regional wall motion a bnormalities. Abnormal left ventricular geometry with eccentric left ventricular hypertrophy. Sigmoid ventricular septum with basal septal prominence: 15 mm Normal left ventricula r filling pressure. RIGHT VENTRICLE: Mildly enlarged right ventricular chamber size. Normal r ight ventricular systolic function. Estimated right ventricular systolic pressure 29 mmHg as suming right atrial pressure of 5 mmHg. ATRIA: Mildly enlarged left atrial size. Strain imagin g examination performed to assess left atrial function. Global averaged left atrial lo ngitudinal peak systolic strain is normal at 43.3 % (normal is greater than 35%). Normal rig ht atrial size. CARDIAC VALVES: Trileaflet aortic valve. Calcified aortic valve. No aortic valve regurgitation. Thickened mitral valve. Mitral chordal systolic anterior motion; at peak infusion of dobutamine. Left ventricular outflow tract maximal instantaneous Dopp ler gradient 46 mm Hg. Mild mitral valve regurgitation. Normal pulmonary valve. T rivial pulmonary valve regurgitation. Normal tricuspid valve. Mild tricuspid valve re gurgitation. OTHER ECHO FINDINGS: Normal inferior vena cava size with normal inspiratory c ollapse (>50%). Ascending aorta not well visualized. No intracardiac mass or thrombus identif ied. No pericardial effusion. STRESS IMAGES: Ejection fraction response from 60 % at rest to 70 % at peak stress. Left ventricular end-systolic volume decreased with stres s. No regional wall motion abnormalities with stress. Stress induced systolic anterior motion. Stress induced LVOT gradient/obstruction (peak velocity 3.5 m/sec, peak gradient 48 mm Hg) For the complete report, see the Order-L evel Documents. Akin Chavez M.D. CV ECHO PROCEDURES documented in this encounter Visit Diagnoses Diagnosis Pretransplant Recipient Evaluation Exam Chronic Kidney Disease Stage 4 Glomerula r Filtration Rate 15-29 (HCC) documented in this encounter Administered Medications Inactive Administered Medications - up to 3 most recent administrations Medication Order MAR Action Action Date Dose Rate Site atropine injection 0.25 mg Given 11/28/2020 1:51 PM CDT 0.75 mg 0.25 mg, intravenous, As needed, See protocol, Starting on Fri11/28/20 at 1350 DOBUTamine 1,000 mcg/mL in D5W 250 mL New Bag 11/28/2020 1:52 PM C DT 13 mg infusion 1-100 mg (DOBUTREX) 1-100 mg, intravenous, Once, On Fri11/28/20 at 1400, For 1 dose, Infusion rate: 5-40 mcg/kg/min - see protocol. 250 mg in 250 mL metoprolol injection 5 mg (LOPRESSOR) Given 11/28/2020 1:53 PM CDT 5 mg 5 mg, intravenous, As needed, See protocol, Starting on Fri11/28/20 at 1350 sodium chloride 0.9 % injection 10 mL Given 11/28/2020 1:53 PM CDT 10 mL 10 mL, intravenous, As needed, line care, Starting on Fri11/28/20 at 1349, Prior to and following infusion and between multiple consecutive infusions: sodium chloride 0.9 % injection documented in this encounter Additional Health Concerns Assessment Noted Time PHQ-9 Depression Total Score: 4 11/28/2020 10:17 AM CD T documented as of this encounter Care Teams Rotary Drier Relationship Specialty Start Date End Date Elsewhere, Pcp PCP - General Family Medicine 07/29/17 [facility] - Laboratory Medicine 04/12/20 [place] [address] documented as of this encounter
--- OUTSIDE RECORDS SUMMARY | 2022-04-13 12:17 | XMS_ITS | Encounter Summary ---
:1955 Author Organization [facility] Address [address] [place] [address] Care Team Providers Name Role Phone Elsewhere, Pcp Primary Care Provider Unavailable Reason for Visit Reason Comments Med Refill Encounter Details Date Type Department Care Team Description 12/12/2020 Refill Curt [facility] for [place], Med Refill Transplantation and Clinical M.S .N., R.N., C.C.T.C. 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 [address] [place] [phone] 04/25/2022 Office Visit Otorhinolaryngology Dex Matta, MARKETING PRODUCER, C.N.P., M.S.N. [address] [place] [phone] 05/08/2022 Appointment Laboratory Medicine Angélica Granger, P.A.-C. [address] [place] [phone] 05/08/2022 Clinical Admitting/Central Communication Scheduling 05/10/2022 Appointment Radiology Jeremie Rose M.D. [address] [place] [phone] 05/10/2022 Comprehensive Visit Orthopedic Surgery Warner Graves M.D. [address] [place] [phone] 05/22/2022 Appointment Laboratory Medicine Angélica Granger P.A.-C. [address] [place] [phone] 06/05/2022 Appointment Laboratory Medicine Angélica Granger P.A.-C. [address] [place] [phone] 06/19/2022 Appointment Laboratory Medicine Angélica Granger P.A.-C. [address] [place] [phone] 07/03/2022 Appointment Laboratory Medicine Angélica Granger P.A.-C. [address] [place] [phone] 07/17/2022 Appointment Laboratory Medicine Angélica Granger P.A.-C. [address] [place] [phone] 07/31/2022 Appointment Laboratory Medicine Angélica Granger P.A.-C. [address] [place] [phone] 08/14/2022 Appointment Laboratory Angélica Royal P.A.-C. [address] [place] [phone] 08/28/2022 Appointment Laboratory Angélica Royal P.A.-C. [address] [place] [phone] documented as of this encounter Visit Diagnoses Diagnosis Transplant Liver (HCC) - Primary documented in this encounter Additional Health Concerns Assessment Noted Time PHQ-9 Depression Total Score: 4 11/28/2020 10:17 AM CD T documented as of this encounter Care Teams Edge Roller Relationship Specialty Start Date End Date Elsewhere, Pcp PCP - General Family Medicine 07/29/17 [facility] - Laboratory Medicine 04/12/20 [place] [address] documented as of this encounter
--- OUTSIDE RECORDS SUMMARY | 2022-04-13 12:17 | XMS_ITS | Encounter Summary ---
:1955 Author Organization [facility] Address [address] [place] [address] Care Team Providers Name Role Phone Elsewhere, Pcp Primary Care Provider Unavailable Reason for Visit Outpatient (Routine) - Closed Specialty Diagnoses / Procedures Referred By Contact Refer red To Contact Dermatology Diagnoses Squamous Cell Carcinoma [facility]u [facility] MAK MOHS 1-4 sites RAMONA, C.N.P., D.N.P. [address] [place] [phone] Referral ID Status Reason Start Date Expiration Date Visits Requ ested Visits Authorized [id number] Closed 10/04/2020 10/04/2021 1 1 Encounter Details Date Type Department Care Team Description 11/30/2020 Procedure visit Department of [facility] D[facility]atology samm Cardenas M.D. Carcinoma In Situ [place], [place] [address] [place] [address] (Primary Dx) [address] [place] [phone] Social History Tobacco Use Types Packs/Day Years [...] 12/15/2021 organizations such as tenriism groups, unions, fraOffermobi or athletic groups, or school groups? 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 - 11/30/2020 9:30 AM CDT Referral Kandace Chatman APRN, C.N.P., D.N.P. 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 Cruz HISTORY OF PRESENT ILLNESS is a very pleasant 65 y.o. 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 The dermatologic surgery preoperative information sheet was reviewed. Mr. Singh has a history of liver transplant and kidney disease. He regularly takes aspirin. The patient denies history of heart disease, pacemaker, defibrillator, lung disease, liver disease, stroke, infectious diseases (includinghepatitis B, hepatitis C, or HIV), diabetes, bleeding or health problems. The patient denies artificial joints or other implants. Denies tobacco and alcohol use. PHYSICAL EXAM Vitals: Vitals: 11/30/20 1000 BP: 123/67 Pulse: 102 General: Awake, alert, in no acute distress, and with appropriate affect. Skin: A limited skin examination was performed per patient preference. Well- healed biopsy scar on the right ryann bowl. 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 We recommended close dermatology follow-up. PROCEDURE NOTE - ELECTRODESICCATION AND CURETTAGE We recommended electrodesiccation and curettage, and the patient was amenable. After verbal informedconsent including the risks of pain, hypopigmentation, and recurrence the area was prepped with Betadine and anesthetized with 1% lidocaine with epinephrine. Two cycles of curettage, followed by electrodesiccation was performed. The final lesion size was 10 mm x 10 mm. There was minimal bleeding and there were no complications. The patient tolerated the procedure well. The wound was dressed with Vaseline ointment and a pressure bandage. The patient was given detailed oral and written wound care instructions. documented in this encounter Plan of Treatment Upcoming Encounters Date Type Specialty Care Team Description 04/24/2022 Appointment Laboratory Medicine Angélica Granger P.A.-C. [address] [place] [phone] 04/25/2022 Office Visit Otorhinolaryngology Dex Matta APRN, C.N.P., M.S.N. [address] [place] [phone] 05/08/2022 Appointment Laboratory Medicine Angélica Granger P.A.-C. [address] [place] [phone] 05/08/2022 Clinical Admitting/Central Communication Scheduling 05/10/2022 Appointment Radiology Jeremie Rose M.D. [address] [place] [phone] 05/10/2022 Comprehensive Visit Orthopedic Surgery Warner Graves M.D. [address] [place] [phone] 05/22/2022 Appointment Laboratory Medicine Angélica Granger P.A.-C. [address] [place] [phone] 06/05/2022 Appointment Laboratory Medicine Angélica Granger P.A.-C. [address] [place] [phone] 06/19/2022 Appointment Laboratory Medicine Angélica Granger P.A.-C. [address] [place] [phone] 07/03/2022 Appointment Laboratory Medicine Angélica Granger P.A.-C. [address] [place] [phone] 07/17/2022 Appointment Laboratory Medicine Angélica Granger P.A.-C. [address] [place] [phone] 07/31/2022 Appointment Laboratory Medicine Angélica Granger P.A.-C. [address] [place] [phone] 08/14/2022 Appointment Laboratory Medicine Angélica Granger P.A.-C. [address] [place] [phone] 08/28/2022 Appointment Laboratory Medicine Angélica Granger P.A.-C. [address] [place] [phone] documented as of this encounter Visit Diagnoses Diagnosis Squamous Cell Carcinoma In Situ - Primar y documented in this encounter Administered Medications Inactive Administered Medications - up to 3 most recent administrations Medication Order MAR Action Action Date Dose Rate Site lidocaine-EPINEPHrine 1%-1:200,000 Given 11/30/2020 10:09 AM CDT 4 mL injection 2-50 mL (XYLOCAINE W/EPI) 2-50 mL, injection, As needed, may repeat if the patient complains of pain/discomfort at the site up to 50 mL for entire procedure, Starting on Shraddha 11/30/20 at 1007, For 1 day documented in this encounter Additional Health Concerns Assessment Noted Time PHQ-9 Depression Total Score: 4 11/28/2020 10:17 AM CD T documented as of this encounter Care Teams Bread Supervisor Relationship Specialty Start Date End Date Elsewhere, Pcp PCP - General Family Medicine 07/29/17 [facility] - Laboratory Medicine 04/12/[address] [address] documented as of this encounter
--- OUTSIDE RECORDS SUMMARY | 2022-04-13 12:17 | XMS_ITS | Encounter Summary ---
:1955 Author Organization [facility] Address [address] [place] [address] Care Team Providers Name Role Phone Elsewhere, Pcp Primary Care Provider Unavailable Reason for Referral Medication Prior Authorization - Authorized Specialty Diagnoses / Procedures Referred By Contact Refer red To Contact Ellen Rangel M .D. 200 [place] [phone] Referral ID Status Reason Start Date Expiration Date Visits V isits Requested Authorized [id number] Authorized 1 1 Reason for Visit Appointment Request (Routine) - Closed Specialty Diagnoses / Procedures Referred By Contact Refer red To Contact Transplant Diagnoses Failure Renal Referral ID Status Reason Start Date Expiration Date Visits Requ ested Visits Authorized [id number] Closed 09/01/2020 09/01/2021 2 1 Encounter Details Date Type Department Care Team Description 11/29/2020 Office Visit [facility], Pretr ansplant Recipient Evaluation Exam (Primary Dx); [facility] 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 - 11/29/2020 11:00 AM CDT KIDNEY TRANSPLANT MEDICAL EVALUATION WRAP UP VISIT REASON FOR VISIT: Bruce Singh is a 65 y.o. male who presents for kidney transplant evaluation wrap up visit. HISTORY OF PRESENT ILLNESS: Since our visit on Friday, he has met several of our team members. We prescribed iron infusion for him which he received on 11/27/20. He is scheduled to see our CKD enroll clinic this afternoon at 3 PM with Thai. Per dermatology, he has no recurrent of skin cancer. He has one actinic keratoses which was frozed with liquid nitrogen. He met director of social services or psychosocial assessment. drop worker has given him PACT 2/4 and SIPAT 20. Noted he has several potential caregivers. He met with psychiatrist (Dr. Galeano) for follow-upfor his bipolar disorder. His bipolar d/o noted to be stable and remained stable for transplant. He met with liver transplant team yesterday. From a liver transplant stand point, things are quite stable. The most recent Iothalamate clearance on 11/28/2020 was 15 mL/minute. Dobutamine stress echo on 11/28/2020 was negative for myochardial ischemia. EF improved from 60-70%. LVESV decreased with stress. CT abdomen and pelvis without IV contrast on 11/27/2020 show moderate calcification proximal common iliac arteries without significant calcification in external iliac arteries. Today, he feels fine. He has no major concerns except that he still has intermittent nausea. This isnot related to the meal but mostly occur after when he cough and try to clear his phlegm. Potential living kidney donor(s): no ASSESSMENT, REPORT & PLAN: # Pretransplant Recipient Evaluation Exam He remains a reasonable candidate. We think that he should remain active on the list. There is no major barrier at this time. Cardiac evaluation revealed no signs of ischemia. CT abdomen showed moderate calcification of common iliac arteries but less so in external iliac arteries. We will discuss his case in the transplant committee. Regarding chronic cough, he will get swallow eval today and we have referred him to have a follow upwith pulmonology (12/08/20). # Anemia secondary to iron deficiency anemia and CKD His hemoglobin during admission in October was 7.7 but spontaneously improved to 8.9 this time. The patient also feels tired and which could be contributed from anemia. He has iron studies checked when he was admitted which show transferrin saturation of 18% and ferritin of 200. He received 1 dose of Feraheme at 510 mg on 11/27/2020. If this hemoglobin does not improve, he may need JORGE L. However, we will defer this to his CKD clinic. # Recent COVID-19 infection # S/p 2 doses of Moderna vaccine in August 2019 # Chronic cough with PFT showing mild obstruction Chronic cough was worse when he had COVID-19. Fortunately, his O2 remain acceptable. He will see on 12/08. 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 226 cm/sec His kidney function has worsened with creatinine of 4.03 today with iothalamate clearance of 15. Renal replacement therapy plan was discussed. He will see CKD enroll clinic today. The patient has some intermittent nausea. If there is no improvement in these symptoms, we may need to initiate renal replacement therapy. # Bipolar I Disorder This has been quiescent and he is on medication (lamotrigine). Seen by Psychiatry on 11/28 which notedto be stable. 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 Continues immunosuppression for his liver transplant. On tacrolimus, CellCept and Prednisone. # Obstructive uropathy He continues on alpha blockade. Doxazosin 4 mg daily. #Health maintenance: Colonoscopy was normal August 2017. PSA normal on 11/27/20. ?? Transplant Evaluation Summary: 1. Cause of Renal [...] 80% 12. EPTS: 66%% 13. Cardiopulmonary evaluation: Dobutamine stress is negative for ischemia. The patient has PFT donein September 10 showing mild obstruction. He will see pulmonology on 12/08/20. 14. Troponin: 34 15. 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 Follow-up by Dermatology. Last seen Dermatology on 11/28/20. No recurrence. 16. [place] renal imaging if on dialysis >3 years: CT scan on 11/27/20 was negative for lesions. 17. Health maintenance: Colonoscopy up to date, last in 2018, PSA is normal. 18. History of serious infections: Recent COVID infection in 11/13/2020. Does not require any oxygen. He received monoclonal antibodies and 1 dose of dexamethasone. 19. Urinary bladder dysfunction: yes; he has been on doxazosin 20. Hematology/coagulation issues: Anemia secondary to iron deficiency anemia and CKD. S/p Feraheme.May need ESAs. 21. Psychosocial: PACT:2 / SIPAT: 20 / Other Issues: Bipolar disorder. Stable. 22. Surgical Issues: Prior liver transplantation x 2. 23. Peripheral Vascular Disease?: No 24. Other Medical Issues: As mentioned above 25. Pending issues: None. 26. Exhausted dialysis access: No The patient was counseled about the risks, benefits and alternative of a transplant as well as the potential risks of immunosuppression medications. Patient was also notified that the overall evaluation will be discussed in the multidisciplinary kidney/pancreas transplant recipients selection committee meeting where a final recommendation on the patient's suitability for transplantation will be made. I spent more than 30 min with the patient today and more than half of the time was spent on counseling about the above issues and coordination of care. This was discussed with MD Lelia. Electronically signed by: Ellen Rangel M.D. 11/29/20 8:20 AM CDT Edited by: Sherron Steel, Documentation Services 12/18/20 12:36 PM CDT Akin Chavez M.D. - 11/29/2020 11:00 AM CDT I saw and evaluated Mr. Singh with Dr. Ellen Rangel M.D.. I confirmed the garcia elements of thehistory and physical exam. I agree with the findings, assessment and plan of care as outlined in thenote. Patient remains a good candidate for kidney transplantation after his kidney transplant re-evaluation and therefore he will remain active on the kidney transplant waiting list. documented in this encounter Plan of Treatment Upcoming Encounters Date Type Specialty Care Team Description 04/24/2022 Appointment Laboratory Medicine Angélica Granger P.A.-C. [address] [place] [phone] 04/25/2022 Office Visit Otorhinolaryngology Dex Matta APRN, C.N.P., M.S.N. [address] [place] [phone] 05/08/2022 Appointment Laboratory Medicine Angélica Granger P.A.-C. [address] [place] [phone] 05/08/2022 Clinical Admitting/Central Communication Scheduling 05/10/2022 Appointment Radiology Jeremie Rose M.D. [address] [place] [phone] 05/10/2022 Comprehensive Visit Orthopedic Surgery Warner Graves M.D. [address] [place] [phone] 05/22/2022 Appointment Laboratory Medicine Angélica Granger P.A.-C. [address] [place] [phone] 06/05/2022 Appointment Laboratory Medicine Angélica Granger P.A.-C. [address] [place] [phone] 06/19/2022 Appointment Laboratory Medicine Angélica Granger P.A.-C. [address] [place] [phone] 07/03/2022 Appointment Laboratory Medicine Angélica Granger P.A.-C. [address] [place] [phone] 07/17/2022 Appointment Laboratory Medicine Angélica Granger P.A.-C. [address] [place] [phone] 07/31/2022 Appointment Laboratory Medicine Angélica Granger P.A.-C. [address] [place] [phone] 08/14/2022 Appointment Laboratory Medicine Angélica Granger P.A.-C. [address] [place] [phone] 08/28/2022 Appointment Laboratory Medicine Angélica Granger P.A.-C. [address] [place] [phone] documented as of this encounter Visit Diagnoses Diagnosis Pretransplant Recipient Evaluation Exam - Primary Bipolar I Depressed Partial Remission (H CC) Immunodeficiency (HCC) Chronic Kidney Disease Stage 4 Glomerula r Filtration Rate 15-29 (HCC) Cirrhosis Cryptogenic (HCC) documented in this encounter Additional Health Concerns Assessment Noted Time PHQ-9 Depression Total Score: 4 11/28/2020 10:17 AM CD T documented as of this encounter Care Teams Environmental Research Project Manager Relationship Specialty Start Date End Date Elsewhere, Pcp PCP - General Family Medicine 07/29/17 [facility] - Laboratory Medicine 04/12/20 [place] [address] documented as of this encounter
--- OUTSIDE RECORDS SUMMARY | 2022-04-13 12:17 | XMS_ITS | Encounter Summary ---
:1955 Author Organization [facility] Address [address] [place] [address] Care Team Providers Name Role Phone Elsewhere, Pcp Primary Care Provider Unavailable Encounter Details Date Type Department Care Team Description 11/29/2020 Orders Only Pharmacy Prior Auth Argelia Rodriguez I. 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 [address] [place] [phone] 04/25/2022 Office Visit Otorhinolaryngology Dex Matta APRN, C.N.P., M.S.N. [address] [place] [phone] 05/08/2022 Appointment Laboratory Medicine Angélica Granger P.A.-C. [address] [place] [phone] 05/08/2022 Clinical Admitting/Central Communication Scheduling 05/10/2022 Appointment Radiology Jeremie Rose M.D. [address] [place] [phone] 05/10/2022 Comprehensive Visit Orthopedic Surgery Warner Graves M.D. [address] [place] [phone] 05/22/2022 Appointment Laboratory Medicine Angélica Granger P.A.-C. [address] [place] [phone] 06/05/2022 Appointment Laboratory Medicine Angélica Granger P.A.-C. [address] [place] [phone] 06/19/2022 Appointment Laboratory Medicine Angélica Granger P.A.-C. [address] [place] [phone] 07/03/2022 Appointment Laboratory Medicine Angélica Granger P.A.-C. [address] [place] [phone] 07/17/2022 Appointment Laboratory Medicine Angélica Granger P.A.-C. [address] [place] [phone] 07/31/2022 Appointment Laboratory Medicine Angélica Granger P.A.-C. [address] [place] [phone] 08/14/2022 Appointment Laboratory Medicine Angélica Granger P.A.-C. [address] [place] [phone] 08/28/2022 Appointment Laboratory Medicine Angélica Granger P.A.-C. [address] [place] [phone] documented as of this encounter Visit Diagnoses Not on filedocumented in this encounter Additional Health Concerns Assessment Noted Time PHQ-9 Depression Total Score: 4 11/28/2020 10:17 AM CD T documented as of this encounter Care Teams High School Sports Coach Relationship Specialty Start Date End Date Elsewhere, Pcp PCP - General Family Medicine 07/29/17 [facility] - Laboratory Medicine 04/12/[address] [address] documented as of this encounter
--- OUTSIDE RECORDS SUMMARY | 2022-04-13 12:17 | XMS_ITS | Encounter Summary ---
:1955 Author Organization [facility] Address [address] [place] [address] Care Team Providers Name Role Phone Elsewhere, Pcp Primary Care Provider Unavailable Reason for Referral Outpatient (Routine) - Closed Specialty Diagnoses / Procedures Referred By Contact Refer red To Contact Nephrology and Mirian Ramirez, [facility] Hypertension Deshawn GREENE, M.S.N. [address] [place] [phone] Referral ID Status Reason Start Date Expiration Date Visits Requ ested Visits Authorized [id number] Closed 11/29/2020 11/29/2021 1 1 Scheduling Instructions Outside lab order entered. Please ensure Zoe Mancuso in [place], [place] gets these. Thank you Encounter Details Date Type Department Care Team Description 11/29/2020 Orders Only Division of Nephrology Mirian Ramirez, Chronic Kidney Disease Stage 5 Glomerular Filtration Rate Less Than 15 (HCC) (Primary Dx); and Hypertension in Deshawn GREENE, Hyperte nsion And Chronic Kidney Disease Stage 4 (HCC) [place], [place] M.S.N. 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 [address] [place] [phone] 05/08/2022 Appointment Laboratory Medicine Angélica Granger P.A.-C. [address] [place] [phone] 05/08/2022 Clinical Admitting/Central Communication Scheduling 05/10/2022 Appointment Radiology Jeremie Rose M.D. [address] [place] [phone] 05/10/2022 Comprehensive Visit Orthopedic Surgery Warner Graves M.D. [address] [place] [phone] 05/22/2022 Appointment Laboratory Medicine Angélica Granger P.A.-C. [address] [place] [address] [phone] 06/05/2022 Appointment Laboratory Medicine Angélica Granger P.A.-C. [address] [place] [phone] 06/19/2022 Appointment Laboratory Medicine Angélica Granger P.A.-C. [address] [place] [address] [phone] 07/03/2022 Appointment Laboratory Medicine Angélica Granger P.A.-C. [address] [place] [address] [phone] 07/17/2022 Appointment Laboratory Medicine Angélica Granger P.A.-C. [address] [place] [phone] 07/31/2022 Appointment Laboratory Medicine Angélica Granger P.A.-C. [address] [place] [phone] 08/14/2022 Appointment Laboratory Medicine Angélica Granger P.A.-C. [address] [place] [phone] 08/28/2022 Appointment Laboratory Medicine Angélica Granger P.A.-C. [address] [place] [phone] Scheduled Referrals Name Type Priority Associated Order Schedule Diagnoses Nephrology and Outpatient Referral Routine Expect ed: Hypertension office 12/30/19 21 visit (clinic) (Approximate) , Expires: 11/30/2023 documented as of this encounter Visit Diagnoses Diagnosis Chronic Kidney Disease Stage 5 Glomerula r Filtration Rate Less Than 15 (HCC) - Primary Hypertension And Chronic Kidney Disease Stage 4 (HCC) documented in this encounter Additional Health Concerns Assessment Noted Time PHQ-9 Depression Total Score: 4 11/28/2020 10:17 AM CD T documented as of this encounter Care Teams Laborer Brush Clearing Relationship Specialty Start Date End Date Elsewhere, Pcp PCP - General Family Medicine 07/29/17 [facility] - Laboratory Medicine 04/12/[address] [address] documented as of this encounter
--- OUTSIDE RECORDS SUMMARY | 2022-04-13 12:17 | XMS_ITS | Encounter Summary ---
:1955 Author Organization [facility] Address [address] [place] [address] Care Team Providers Name Role Phone Elsewhere, Pcp Primary Care Provider Unavailable Reason for Visit Transplant (Routine) - Closed Specialty Diagnoses / Procedures Referred By Contact Refer red To Contact Transplant Surgery / Diagnoses Transplant Liver (HCC) Medication Therapy Air Intelligence Officer Not Anticoagulant Cirrhosis Cryptogenic (HCC) Screening Examination Prostate Cancer Screening Examination [facility] [address] [place] [phone] Referral ID Status Reason Start Date Expiration Date Visits Requ ested Visits Authorized [id number] Closed 09/14/2020 09/14/2021 1 1 Encounter Details Date Type Department Care Team Description 11/28/2020 Nurse Only Curt Rene [facility] Willis Shearer M.D. [address] [place] [phone] for Transplantation and Yolie Dubois R.N. [address] [place] [phone] Clinical Regeneration in [place], [place] [address] [place] [address] [phone] Social History Tobacco Use Types Packs/Day [...] or relatives? How often do you attend mandaeism or More than 4 times per year 12/15/2021 jehovah's witness services? 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 - 11/28/2020 2:30 PM CDT Bruce Singh received a transplant on 06/12/2013 (Liver), 05/25/1999 (Liver) for cryptogenic cirrhosis. Bruce presents to the clinic for his annual transplant evaluation. He reports that from a liver transplant stand point, he is doing well. He states that he has been having lung issues and is following closely with our pulmonology team for that. He states he has a cough, fatigue and shortness of breathwith activity. Bruce did have COVID a few weeks ago and states that he did well with that. He appreciated being a part of the remote monitoring program. ----- Has the patient been hospitalized since last patient status date? yes- [facility] ICU for COVID New on-set diabetes during the follow-up period? No Did the patient have any acute rejection episodes during the follow-up period? No. Recipient diagnosed with any malignant cancer since last follow-up? Yes- Squamous Cell Carcinoma. Will be getting a mohs procedure in a few days. ---- Currently having labs done every every 3 months. Will keep current schedule unless otherwise dictated by provider. Bruce has labs drawn at [facility]. ---- Bruce's local provider is Ryan Cole MD at [facility]. ---- Reviewed current test results, vital signs, and follow up plans with patient. Medications reconciled. Reviewed with patient general post transplant care. Patient verbalized understanding of all information. Patient to be seen by Transplant Center Staff for further assessment and management. documented in this encounter Plan of Treatment Upcoming Encounters Date Type Specialty Care Team Description 04/24/2022 Appointment Laboratory Medicine Angélica Granger, P.A.-CDemetrius [address] [place] [phone] 04/25/2022 Office Visit Otorhinolaryngology Dex Matta, RAMONA, C.N.P., M.S.N. [address] [place] [phone] 05/08/2022 Appointment Laboratory Medicine Angélica Granger P.A.-CDemetrius [address] [place] [phone] 05/08/2022 Clinical Admitting/Central Communication Scheduling 05/10/2022 Appointment Radiology Jeremie Rose M.D. [address] [place] [phone] 05/10/2022 Comprehensive Visit Orthopedic Surgery Warner Graves M.D. [address] [place] [phone] 05/22/2022 Appointment Laboratory Medicine Angélica Granger P.A.-C. [address] [place] [phone] 06/05/2022 Appointment Laboratory Medicine Angélica Granger P.A.-C. [address] [place] [phone] 06/19/2022 Appointment Laboratory Medicine Angélica Granger P.A.-C. [address] [place] [phone] 07/03/2022 Appointment Laboratory Medicine Angélica Granger P.A.-C. [address] [place] [address] [phone] 07/17/2022 Appointment Laboratory Medicine Angélica Granger P.A.-C. [address] [place] [phone] 07/31/2022 Appointment Laboratory Medicine Angélica Granger P.A.-C. [address] [place] [phone] 08/14/2022 Appointment Laboratory Medicine Angélica Granger P.A.-C. [address] [place] [phone] 08/28/2022 Appointment Laboratory Medicine Angélica Granger P.A.-C. [address] [place] [phone] documented as of this encounter Visit Diagnoses Diagnosis Transplant Liver (HCC) Medication Therapy Intermediate Not Anticoa gulant Cirrhosis Cryptogenic (HCC) Screening Examination Prostate Cancer Screening Examination Skin Cancer documented in this encounter Additional Health Concerns Assessment Noted Time PHQ-9 Depression Total Score: 4 11/28/2020 10:17 AM CD T documented as of this encounter Care Teams Engineering Operations Leader Relationship Specialty Start Date End Date Elsewhere, Pcp PCP - General Family Medicine 07/29/17 [facility] - Laboratory Medicine 04/12/20 [place] [phone] documented as of this encounter
--- OUTSIDE RECORDS SUMMARY | 2022-04-13 12:17 | XMS_ITS | Encounter Summary ---
:1955 Author Organization [facility] Address [address] [place] [id number] Care Team Providers Name Role Phone Elsewhere, Pcp Primary Care Provider Unavailable Reason for Visit Physical Therapy (Routine) - Closed Specialty Diagnoses / Procedures Referred By Contact Refer red To Contact Diagnoses Pretransplant Recipient Evaluation Exam Chronic Kidney Disease Stage 4 Glomerular Filtration Rate 15-29 (HCC) Akin Chavez M.D. [facility] Procedures PT Evaluate and treat [address] [place] [phone] Referral ID Status Reason Start Date Expiration Date Visits Requ ested Visits Authorized [id number] Closed 09/15/2020 09/15/2021 99 99 Encounter Details Date Type Department Care Team Description 11/29/2020 Comprehensive Visit Department of Physical Akin Chavez M.D. [address] [place] [phone] Pretransplant Recipient Evaluation Exam; Sofia and Shelli Rodriguez P.T., D.P.T., A.T.C. [address] [place] [phone] Chronic Kidney Disease Stage 4 Glomerula r Filtration Rate 15-29 (HCC) Rehabilitation in [place], [place] [address] [place] [phone] Social History Tobacco Use Types Packs/Day Years [...] 12/15/2021 organizations such as jainism groups, unions, fra[employer] or athletic groups, or school groups? 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 - 11/29/2020 9:00 AM CDT Physical Therapy Musculoskeletal Outpatient Evaluation and Treatment By co-signing this note, the provider certifies the therapy being provided to this patient is reasonable and necessary for the diagnosis or treatment of this patient. SUBJECTIVE Patient's Name: Bruce Singh Referring Provider: Akin Chavez M.D. Medical Diagnosis: 1. Pretransplant Recipient Evaluation Exam 2. Chronic Kidney Disease Stage 4 Glomerular Filtration Rate 15-29 (HCC) Reason for Referral: Pre-transplant evaluation Payor: [facility] / Plan: [employer]ST SHARE / Product Type: Cost Share / Epic Visit Count: Visit count could not be calculated. Make sure you are using a visit which is associated with an episode. PT Next Certification Date: 02/27/21 PERTINENT MEDICAL / SURGICAL HISTORY: Patient Active Problem List Diagnosis ??? Cirrhosis Cryptogenic (HCC) ??? Bipolar I Disorder (HCC) ??? Transplant Liver (HCC) ??? Chronic Kidney Disease NOS ??? Chronic Kidney Disease Stage 3 Glomerular Filtration Rate 30 To 59 (HCC) ??? Bipolar I Depressed Full Remission (HCC) ??? Immunosuppressed State (HCC) ??? Stenosis Renal Artery (HCC) ??? Hypertension ??? Chronic Kidney Disease Stage 4 Glomerular Filtration Rate 15-29 (HCC) ??? Bipolar I Depressed Partial Remission (HCC) ??? Complaint Memory ??? Spells Neurological (HCC) ??? Pretransplant Recipient Evaluation Exam ??? Pneumonitis Due To Inhalation Of Food And Vomit (HCC) ??? Cough ??? Drip Post Nasal ??? Abnormal Computed Tomography Chest ??? Rhinosinusitis Chronic ??? COVID-19 Infection ??? Acute Bronchitis Due To COVID-19 ??? Anemia ??? Shortness Of Breath ??? Elevated D-Dimer Uncertain Significance ??? Hyponatremia Past Surgical History: Procedure Laterality Date ??? [...] 09/03/2013 >Umbilical hernia repair. ??? VASECTOMY 1989 Bruce Singh is a 65 y.o. male who presents to outpatient physical therapy for pre-transplant evaluation. His symptoms consist of progressive fatigue and shortness of breath, which began over thelast few months and partially related to having COVID . Overall he reports his status is worsening . Prior Function/Occupational Profile: Level of Banks: indpendent with all daily activities but requiring more rest Prior Function/Occupational Profile Dominant Hand: Left Patient goals:Remain active Previous Treatments: He use to work out at a gym but this changed due to COVID and he has not gone back OBJECTIVE REVIEW OF SYSTEMS History obtained from chart review and the patient PHYSICAL EXAM Fall Assessment: Fall in the last 12 months: No Are you fearful of falling?: No Special Tests: Pre-transplant Screen FRAILTY INDEX: Promotions Executive Strength score: 33 kg right 0 = does not meet criteria 5-meter Walk score: 3.5 seconds No gait aid 0 = does not meet criteria Exhaustion: 1 = meets criteria Weight Loss: He reports losing muscle mass due to his lung and hemoglobin issues which have reduced his activity 1 = meets criteria Physical Activity: 0 = does not meet criteria Total Fried Frailty Score: 1-2 = pre-frail SHORT PHYSICAL PERFORMANCE BATTERY (SPPB) Balance Testing Ynhl-tt-Gidg Stand: 1 = Hold for 10 sec Semi tandem Stand: 1 = Hold for 10 sec Tandem Stand: 2 = Held for 10 sec Balance Test Score: 4 Walk Test Score: 1.43 m/s 4 = greater than or equal to .83 m/sec Repeated Chair Stands Score: 10.35 seconds 4 = less than or equal to 11.19 sec SPPB Score: 12/12 (below 8 can predict future dysfunction and disability) TREATMENT Treatment today consisted of: Patient was educated that frailty has been associated with an increased risk of adverse health, including perioperative complications, increased hospital length of stay, disability and institutionalization. Discussed how a physical therapy program including aerobic exercise, strength, flexibility and balance training can help improve mobility and delay the onset of frailty. Home Exercise Program/Education: None Contact monitoring: PPE used during therapy: Therapist was wearing the following PPE throughout entire session: surgicalmask Patient was wearing a mask during therapy session: yes Assessment Clinical Impression: Patient is best categorized as not frail based on the Short Physical Performance Battery and FrailtyIndex. Patient demonstrates no functional impairments at this time. Patient will continue with home exercise program independently. His medical status with his lung function and his low hemoglobin havedecreased his current functional capacity but not yet to a state of being pre-frail. Encouraged him to continue to work with pulmonology to improve his shortness of breath. Rehab Potential: Mr. Singh has Excellent potential to achieve established physical therapy goals within the time frame outlined below, provided he actively participates in his physical therapy treatment plan and home program. Comorbid Conditions: Renal disease, Other (Comment) (Pulmonary and hemodynamic challenges with low Hgb) Personal Factors: Other (Comment) (Fatigue has increased his sedentary lifestyle) Clinical Presentation: Evolving Examination elements: 3 Clinical Decision Making: Moderate complexity clinical decision making Clinical Decision Making Complexity: Moderate complexity clinical decision making Functional Goals and Timeframes: PT Outpatient Goals PT Goal #1: Patient will verbalize understanding of the importance of regular physical activity in order to maximize independent functional strength. PT Goal #1 Date: 11/29/20 Plan Mr. Singh was educated regarding evaluative findings, diagnosis, prognosis, potential risks and benefits of rehabilitation interventions. A collaborative effort was used to establish goals and plan of care. He was informed of his right to make decisions regarding his care, including refusal of examination or treatment or selection of therapy services from another provider if desired. The treatment plan may be progressed or modified based upon his response to treatment. Treatment Plan: Start of Plan of Care: 11/29/2020 PT Next Certification Date: 02/27/21 Number of Visits:1 visits PT Duration: 1 days PT Frequency: One-time visit Treatment interventions may include: Treatment/Interventions: Therapeutic exercise Time Spent with Patient PT Evaluation (min): 16 min Therapeutic Exercise (min): 3 min Time Calculation Total Timed Units (min): 3 min Total Treatment Time (min): 19 min Shelli Rodriguez P.T., LouieP.T. documented in this encounter Plan of Treatment Upcoming Encounters Date Type Specialty Care Team Description 04/24/2022 Appointment Laboratory Medicine Angélica Granger P.A.-C. [address] [place] [phone] 04/25/2022 Office Visit Otorhinolaryngology Dex Matta APRN CDemetriusNDemetriusP., M.S.N. [address] [place] [phone] 05/08/2022 Appointment Laboratory Medicine Angélica Granger P.A.-C. [address] [place] [phone] 05/08/2022 Clinical Admitting/Central Communication Scheduling 05/10/2022 Appointment Radiology Jeremie Rose M.D. [address] [place] [phone] 05/10/2022 Comprehensive Visit Orthopedic Surgery Warner Graves M.D. [address] [place] [address] [phone] 05/22/2022 Appointment Laboratory Medicine Angélica Granger P.A.-C. [address] [place] [phone] 06/05/2022 Appointment Laboratory Medicine Angélica Granger P.A.-C. [address] [place] [phone] 06/19/2022 Appointment Laboratory Medicine Angélica Granger P.A.-C. [address] [place] [phone] 07/03/2022 Appointment Laboratory Medicine Angélica Granger P.A.-C. [address] [place] [phone] 07/17/2022 Appointment Laboratory Medicine Angélica Granger P.A.-C. [address] [place] [phone] 07/31/2022 Appointment Laboratory Medicine Angélica Granger P.A.-C. [address] [place] [phone] 08/14/2022 Appointment Laboratory Medicine Angélica Granger P.A.-C. [address] [place] [phone] 08/28/2022 Appointment Laboratory Medicine Angélica Granger P.A.-C. [address] [place] [phone] documented as of this encounter Visit Diagnoses Diagnosis Pretransplant Recipient Evaluation Exam Chronic Kidney Disease Stage 4 Glomerula r Filtration Rate 15-29 (HCC) documented in this encounter Additional Health Concerns Assessment Noted Time PHQ-9 Depression Total Score: 4 11/28/2020 10:17 AM CD T documented as of this encounter Care Teams Design Technology Teacher Relationship Specialty Start Date End Date Elsewhere, Pcp PCP - General Family Medicine 07/29/17 [facility] - Laboratory Medicine 04/12/[address] [address] documented as of this encounter
--- OUTSIDE RECORDS SUMMARY | 2022-04-13 12:18 | XMS_ITS | Encounter Summary ---
:1955 Author Organization [facility] Address [address] [place] [address] Care Team Providers Name Role Phone Elsewhere, Pcp Primary Care Provider Unavailable Reason for Visit Reason Onset Date Comments COVID-19 Remote Patient Monitoring 11/19/2020 Graduation 11/19/2020 Encounter Details Date Type Department Care Team Description 11/19/2020 Remote Monitoring Remote Patient Ursula Cross, COVID-1 9 Remote Monitoring R.N. 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 - 11/19/2020 9:28 AM CDT Remote Monitoring COVID-19 Program Graduation Patient has met established standards and the provider plan of care for COVID-19 disease and thus meets criteria for graduation for the COVID-19 Remote Monitoring program. Patient's vitals have been stable, symptoms improved and has been afebrile for at least 24 hours without the use of fever reducingmedication. Patient is knowledgeable about when to notify the care team with concerns/symptoms. The patient has been be directed to contact their primary care provider with any concerns/follow-up. Home oxygen: No Recent SpO2 result: 97% on RA Today the patient reports the following symptoms: Dyspnea: Not present and at baseline per patient Cough: Improving Chest Pain or chest tightness: Not present Rhinorrhea/congestion: Not present and at baseline per patient Sore throat: Not present Fever (>100.4oF or subjective fever): No longer experiencing Patient report of date of last feverreducing medication: none Chills: Resolved Sweats: Resolved Myalgias: Not present Diarrhea: Resolved Additional symptoms reported: Vomiting: Not present Abdominal pain: Not present Dizzy or lightheaded: Not present and at baseline per patient Headache: Not present and at baseline per patient Fatigue: Improving Loss of smell: Not present Loss of taste: Not present Leg swelling:Not present and at baseline per patient COVID-19 Nurse Symptom Monitoring Questionnaire: No flowsheet data found. Next Steps: Patient informed of the remote monitoring equipment retrieval process. Patient agreed to call RemotePatient Monitoring nurse with any questions or concerns in the interim. documented in this encounter Plan of Treatment Upcoming Encounters Date Type Specialty Care Team Description 04/24/2022 Appointment Laboratory Medicine Angélica Granger P.A.-C. [address] [place] [phone] 04/25/2022 Office Visit Otorhinolaryngology Dex Matta APRN, C.N.P., M.S.N. [address] [place] [phone] 05/08/2022 Appointment Laboratory Medicine Angélica Granger P.A.-CDemetrius [address] [place] [phone] 05/08/2022 Clinical Admitting/Central Communication Scheduling 05/10/2022 Appointment Radiology Jeremie Rose M.D. [address] [place] [phone] 05/10/2022 Comprehensive Visit Orthopedic Surgery Warner Graves M.D. [address] [place] [phone] 05/22/2022 Appointment Laboratory Medicine Angélica Granger P.A.-CDemetrius [address] [place] [phone] 06/05/2022 Appointment Laboratory Medicine Angélica Granger P.A.-C. [address] [place] [phone] 06/19/2022 Appointment Laboratory Medicine Angélica Granger P.A.-C. [address] [place] [phone] 07/03/2022 Appointment Laboratory Medicine Angélica Granger P.A.-C. [address] [place] [phone] 07/17/2022 Appointment Laboratory Medicine Angélica Granger P.A.-C. [address] [place] [phone] 07/31/2022 Appointment Laboratory Medicine Angélica Granger P.A.-C. [address] [place] [phone] 08/14/2022 Appointment Laboratory Medicine Angélica Granger P.A.-C. [address] [place] [phone] 08/28/2022 Appointment Laboratory Medicine Angélica Granger P.A.-C. [address] [place] [phone] documented as of this encounter Visit Diagnoses Diagnosis COVID-19 Infection documented in this encounter Additional Health Concerns Infection Onset Date Last Indicated Resolved Time COVID19 10/30/2020 10/30/2020 11/19/2020 4:45 AM CDT Assessment Noted Time PHQ-9 Depression Total Score: 3 11/22/2019 7:34 AM CDT documented as of this encounter Care Teams [place] Gold Attendant Relationship Specialty Start Date End Date Elsewhere, Pcp PCP - General Family Medicine 07/29/17 [facility] - Laboratory Medicine 04/12/[address] [phone] documented as of this encounter
--- OUTSIDE RECORDS SUMMARY | 2022-04-13 12:18 | XMS_ITS | Encounter Summary ---
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 [address] [place] [phone] Referral ID Status Reason Start Date Expiration Date Visits Requ ested Visits Authorized [id number] Closed 09/14/2020 09/14/2021 1 1 Encounter Details Date Type Department Care Team Description 11/27/2020 Comprehensive Visit Department of Kandace James osis Actinic (Primary Dx); Dermatology in , MPAS, P.A.-C. 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 - 11/27/2020 1:00 PM CDT REFERRED BY Willis Mcdermott M.D. CHIEF COMPLAINT/REASON FOR VISIT History of nonmelanoma skin cancer HISTORY OF PRESENT ILLNESS Mr. Bruce Singh is a pleasant 65 y.o. male who presents today for a full skin cancer screening examination. The patient has a history of nonmelanoma skin cancer. 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 It was recommended that he undergo further treatment with Mohs micrographic surgery, which has been scheduled for November 30, later this week. Today, he presents for a full skin exam. He notes 1 scaly lesion on his right upper cheek which has been present for acouple of years. It is asymptomatic, though he feels it is more scaly now. He otherwise denies new or changing lesions on his skin. Allergies Allergen Reactions ??? Cefixime Diarrhea ??? Ciprofloxacin Other (see comments) Tendon pain ??? Citalopram Other (see comments) michell ??? Erythromycin Base Other (see comments) Due to medications ??? Olanzapine Other (see comments) Joint pain ??? Quetiapine Edema Muscle pain and swelling PAST DERMATOLOGIC HISTORY Nonmelanoma skin cancer in the setting of immunosuppression status post liver transplant FAMILY DERMATOLOGIC HISTORY Father with history of melanoma (per patient report) PHYSICAL EXAM General: Awake, alert, in no acute distress, and with appropriate affect. Eyes: No scleral injection or icterus. No eyelid abnormalities. Lymph: No lower extremity edema. Skin: I have examined the scalp, face, neck, chest, abdomen, back, bilateral upper extremities, and bilateral lower extremities. Iverson skin type II. Dermatoheliosis is noted over sun-exposed skin. Numerous brown, waxy papules consistent with seborrheic keratoses are noted over the trunk and extremities. Involving the right upper cheek is a pink macules overlying adherent scale consistent with actinic keratosis. Scattered throughout are multiple 1-2 mm red papules, consistent with lamb angiomas. Evaluation of the right conchal bowl reveals a healed biopsy site. IMPRESSION/REPORT/PLAN #1 Skin cancer screening examination #2 Dermatoheliosis #3 History of nonmelanoma skin cancer #4 History of immunosuppression secondary to liver transplant Reviewed increased risk of skin cancer secondary to immunosuppression.Sun protection and sun avoidance were reviewed with the patient. Educational materials were provided regarding skin self-examination, the warning signs and symptoms of skin cancer, and the proper use of sunscreens. I would recommenda full skin cancer screening examination with an appropriately trained clinician every year. #5 Seborrheic keratoses The benign nature of the skin lesion(s) was discussed with the patient. No treatment is required. I recommend continued observation. Should symptoms or changes develop related to this condition, I would recommend a return visit for reassessment. #6 Actinic keratosis x1, right cheek CONSENT Discussed the risks, benefits, alternatives, and the necessity of other members of the healthcare team participating in the procedure. All questions answered and consent given. PROCEDURE INFORMATION Given the precancerous nature of this lesion(s), treatment is medically indicated. After discussion of the risks, benefits and alternatives to treatment with cryotherapy, informed consent was obtained.We treated a total of 1 lesion(s) with two 20-second freeze-thaw cycles of liquid nitrogen cryotherapy. The patient tolerated the procedure well. Aftercare instructions were provided in written and verbal form to the patient. Should any of these lesions recur, the patient should return for biopsy or further evaluation. PATIENT EDUCATION Ready to learn. No apparent learning barriers were identified. Learning preferences include listening. Explained diagnosis and treatment plan; patient/guardian of patient expressed understanding of thecontent. documented in this encounter Plan of Treatment Upcoming Encounters Date Type Specialty Care Team Description 04/24/2022 Appointment Laboratory Medicine Angélica Granger P.A.-C. [address] [place] [phone] 04/25/2022 Office Visit Otorhinolaryngology Dex Matta APRN, C.N.P., M.S.N. [address] [place] [phone] 05/08/2022 Appointment Laboratory Medicine Angélica Granger P.A.-C. [address] [place] [phone] 05/08/2022 Clinical Admitting/Central Communication Scheduling 05/10/2022 Appointment Radiology Jeremie Rose M.D. [address] [place] [phone] 05/10/2022 Comprehensive Visit Orthopedic Surgery Warner Graves M.D. [address] [place] [phone] 05/22/2022 Appointment Laboratory Medicine Angélica Granger P.A.-C. [address] [place] [phone] 06/05/2022 Appointment Laboratory Medicine Angélica Granger P.A.-C. [address] [place] [phone] 06/19/2022 Appointment Laboratory Medicine nAgélica Granger P.A.-C. [address] [place] [phone] 07/03/2022 Appointment Laboratory Medicine Angélica Granger P.A.-C. [address] [place] [phone] 07/17/2022 Appointment Laboratory Medicine Angélica Granger P.A.-C. [address] [place] [phone] 07/31/2022 Appointment Laboratory Medicine Angélica Granger P.A.-C. [address] [place] [phone] 08/14/2022 Appointment Laboratory Medicine Angélica Granger P.A.-C. [address] [place] [phone] 08/28/2022 Appointment Laboratory Medicine Angélica Granger P.A.-C. [address] [place] [phone] documented as of this encounter Visit Diagnoses Diagnosis Keratosis Actinic - Primary Transplant Liver (HCC) Medication Therapy Senior Sales Operations Manager Not Anticoa gulant Keratosis Seborrheic documented in this encounter Additional Health Concerns Assessment Noted Time PHQ-9 Depression Total Score: 3 11/22/2019 7:34 AM CDT documented as of this encounter Care Teams Apartment Community Assistant Manager Relationship Specialty Start Date End Date Elsewhere, Pcp PCP - General Family Medicine 07/29/17 [facility] - Laboratory Medicine 04/12/[address] [address] documented as of this encounter
--- OUTSIDE RECORDS SUMMARY | 2022-04-13 12:18 | XMS_ITS | Encounter Summary ---
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 Encounter Details Date Type Department Care Team Description 11/19/2020 Remote Monitoring Remote Patient Jennifer Dietrich Graduation (Patient Monitoring [phone] has graduated from [employer] [employer] [facility] 5 (Work) the Remote Monitoring [address] [place] [address] Program. 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 [address] [place] [phone] 04/25/2022 Office Visit Otorhinolaryngology Dex Matta, RAMONA, C.N.P., M.S.N. [address] [place] [phone] 05/08/2022 Appointment Laboratory Medicine Angélica Granger P.A.-CDemetrius [address] [place] [phone] 05/08/2022 Clinical Admitting/Central Communication Scheduling 05/10/2022 Appointment Radiology Jeremie Rose M.D. [address] [place] [phone] 05/10/2022 Comprehensive Visit Orthopedic Surgery Warner Graves M.D. [address] [place] [phone] 05/22/2022 Appointment Laboratory Medicine Angélica Granger P.A.-CDemetrius [address] [place] [phone] 06/05/2022 Appointment Laboratory Medicine Angélica Granger P.A.-C. [address] [place] [phone] 06/19/2022 Appointment Laboratory Medicine Angélica Granger P.A.-C. [address] [place] [phone] 07/03/2022 Appointment Laboratory Medicine Angélica Granger P.A.-C. [address] [place] [phone] 07/17/2022 Appointment Laboratory Medicine Angélica Granger P.A.-C. [address] [place] [phone] 07/31/2022 Appointment Laboratory Medicine Angélica Granger P.A.-C. [address] [place] [phone] 08/14/2022 Appointment Laboratory Medicine Angélica Granger P.A.-C. [address] [place] [phone] 08/28/2022 Appointment Laboratory Medicine Angélica Granger P.A.-C. [address] [place] [phone] documented as of this encounter Visit Diagnoses Diagnosis COVID-19 Infection documented in this encounter Additional Health Concerns Infection Onset Date Last Indicated Resolved Time COVID19 10/30/2020 10/30/2020 11/19/2020 4:45 AM CDT Assessment Noted Time PHQ-9 Depression Total Score: 3 11/22/2019 7:34 AM CDT documented as of this encounter Care Teams Bottle House Quality Control Technician Relationship Specialty Start Date End Date Elsewhere, Pcp PCP - General Family Medicine 07/29/17 [facility] - Laboratory Medicine 04/12/20 [place] [address] documented as of this encounter
--- OUTSIDE RECORDS SUMMARY | 2022-04-13 12:18 | XMS_ITS | Encounter Summary ---
:[address] 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 [address] [place] [phone] 04/25/2022 Office Visit Otorhinolaryngology Dex Matta APRN, C.N.P., M.S.N. [address] [place] [phone] 05/08/2022 Appointment Laboratory Medicine Angélica Granger P.A.-C. [address] [place] [phone] 05/08/2022 Clinical Admitting/Central Communication Scheduling 05/10/2022 Appointment Radiology Jeremie Rose M.D. [address] [place] [phone] 05/10/2022 Comprehensive Visit Orthopedic Surgery Warner Graves M.D. [address] [place] [phone] 05/22/2022 Appointment Laboratory Medicine Angélica Garnger P.A.-C. [address] [place] [phone] 06/05/2022 Appointment Laboratory Medicine Angélica Granger P.A.-C. [address] [place] [phone] 06/19/2022 Appointment Laboratory Medicine Angélica Granger P.A.-C. [address] [place] [phone] 07/03/2022 Appointment Laboratory Medicine Angélica Granger P.A.-C. [address] [place] [phone] 07/17/2022 Appointment Laboratory Medicine Angélica Granger P.A.-C. [address] [place] [phone] 07/31/2022 Appointment Laboratory Medicine Angélica Granger P.A.-C. [address] [place] [phone] 08/14/2022 Appointment Laboratory Medicine Angélica Granger P.A.-C. [address] [place] [phone] 08/28/2022 Appointment Laboratory Medicine Angélica Granger P.A.-C. [address] [place] [address] documented as of this encounter Visit Diagnoses Diagnosis Anemia - Primary documented in this encounter Administered Medications Inactive Administered Medications - up to 3 most recent administrations Medication Order MAR Action Action Date Dose Rate Site ferumoxytoL 510 mg of New Bag 11/27/2020 4:04 PM 510 mg of iron 46 8 mL/hr iron in NaCl 0.9% IVPB CDT (FERAHEME) 510 mg of iron, intravenous, at 468 mL/hr, Administer over 15 Minutes, Once, On Fri11/27/20 at 1545, For 1 dose, Restriction Criteria (Pharmacy will review and approve if criteria met): Does not meet criteria (Specialty provider recommended), Authorizing provider? Akin Chavez, Indications: iron deficiency anemia NaCl 0.9% infusion New Bag 11/27/2020 4:26 PM CDT 20 mL/hr 20 mL/hr 10-250 mL/hr, intravenous, As needed, Post Medications (Hazardous/Low Fluid Volume), Starting on Fri11/27/20 at 1536, Infuse at the same rate as the medication until tubing cleared of medication, then discard. documented in this encounter Additional Health Concerns Assessment Noted Time PHQ-9 Depression Total Score: 3 11/22/2019 7:34 AM CDT documented as of this encounter Care Teams Manager Of Regulatory Affairs Relationship Specialty Start Date End Date Elsewhere, Pcp PCP - General Family Medicine 07/29/17 [facility] - Laboratory Medicine 04/12/[address] [address] documented as of this encounter
--- OUTSIDE RECORDS SUMMARY | 2022-04-13 12:18 | XMS_ITS | Encounter Summary ---
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 [facility] Procedures Short renal clearance: Iothalamate (Renal Studies Unit) [address] [place], [place] [address] Referral ID Status Reason Start Date Expiration Date Visits Requ ested Visits Authorized [id number] Closed 09/14/2020 09/14/2021 1 1 Reason for Visit Outpatient (Routine) - Closed Specialty Diagnoses / Procedures Referred By Contact Refer red To Contact Diagnoses Transplant Liver (HCC) Medication Therapy Prison Not Anticoagulant Cirrhosis Cryptogenic (HCC) Screening Examination Prostate Cancer Screening Examination Skin Cancer Willis Mcdermott M.D. 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 Medication Therapy Prison Not Anticoagulant sodium chloride USE 4 ML VIA 0 08/30/2020 021 (NEBUSAL) 3 % nebulizer NEBULIZER TWICE solution DAILY tacrolimus (PROGRAF) Take 2 capsules (1 360 capsule 3 202007/16/2021 0.5 mg mg total) by mouth 2 capsuleIndications: (two) times a day. 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 documented as 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 [address] [place] [phone] 04/25/2022 Office Visit Otorhinolaryngology Dex Matta APRN C.N.P., M.S.N. [address] [place] [phone] 05/08/2022 Appointment Laboratory Medicine Angélica Granger P.A.-C. [address] [place] [phone] 05/08/2022 Clinical Admitting/Central Communication Scheduling 05/10/2022 Appointment Radiology Jeremie Rose M.D. [address] [place] [phone] 05/10/2022 Comprehensive Visit Orthopedic Surgery Warner Graves M.D. [address] [place] [phone] 05/22/2022 Appointment Laboratory Medicine Angélica Granger P.A.-C. [address] [place] [phone] 06/05/2022 Appointment Laboratory Medicine Angélica Granger P.A.-C. [address] [place] [phone] 06/19/2022 Appointment Laboratory Medicine Angélica Granger P.A.-C. [address] [place] [phone] 07/03/2022 Appointment Laboratory Medicine Angélica Granger P.A.-C. [address] [place] [phone] 07/17/2022 Appointment Laboratory Medicine Angélica Granger P.A.-C. [address] [place] [phone] 07/31/2022 Appointment Laboratory Medicine Angélica Granger P.A.-C. [address] [place] [phone] 08/14/2022 Appointment Laboratory Medicine Angélica Granger P.A.-C. [address] [place] [phone] 08/28/2022 Appointment Laboratory Medicine Angélica Granger P.A.-C. 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 documented in this encounter Results (ABNORMAL) Iothalamate, Glomerular Filtration Rate (11/28/2020 7:22 AM CDT) P athologist Signature Uncorrctd 17 mL/min 11/28/2020 DAVE Iothal Cl 12:47 PM CDT Corrctd Iothal 15 (L) 65 - 119 11/28/2020 DAVE Cl mL/min/BSA 12:47 PM CDT Comment: ----ADDITIONAL INFORMATION---- This test was developed and its performa nce characteristics determined by [facility] in a manner consistent with CLIA requirements. This test has not been cleared or approved by the U.S. Mer d and Drug Administration. Specimen Anatomical Collection Method Collection Time Receive d Time (Source) Location / / Volume Laterality Varies (Blood, 11/28/2020 7:22 AM 021 Venous) CDT 10:16 AM CDT Narrative [facility] - 11/28/2020 12:47 PM CDT Specimen Information: Specimen ID: [id number] Specimen Type: Varies Specimen Collection Start Date: ??7:22 AM Specimen Received Date: 11/28/2020 10:16 AM Specimen ID: [id number] Specimen Type: Varies Specimen Collection Start Date: ??8:27 AM Specimen Received Date: 11/28/2020 10:16 AM Specimen ID: [id number] Specimen Type: Varies Specimen Collection Start Date: ??9:14 AM Specimen Received Date: 11/28/2020 10:16 AM Specimen ID: [id number] Specimen Type: Varies Specimen Collection Start Date: ??8:31 AM Specimen Received Date: 11/28/2020 10:16 AM Specimen ID: [id number] Specimen Type: Varies Specimen Collection Start Date: ??9:18 AM Specimen Received Date: 11/28/2020 10:16 AM Matias Whitney M.D. LAB BLOOD NON ADD-ON Performing Organization Address City/State/ZIP Code Phon e Number [facility] - [address] [place], [place] [address] [place] [address] [facility] [address] documented in this encounter Visit Diagnoses Diagnosis Transplant Liver (HCC) Medication Therapy Prison Not Anticoa gulant Cirrhosis Cryptogenic (HCC) Screening Examination Prostate Cancer Screening Examination Skin Cancer documented in this encounter Administered Medications Inactive Administered Medications - up to 3 most recent administrations Medication Order MAR Action Action Date Dose Rate Site iothalamate meglumine 30 Given 11/28/2020 7:27 AM 1 mL Right Upper Arm % injection 1 mL (CONRAY CDT (Back) 30) 1 mL, subcutaneous, Once, On Fri11/28/20 at 0730, For 1 dose documented in this encounter Additional Health Concerns Assessment Noted Time PHQ-9 Depression Total Score: 4 11/28/2020 10:17 AM CD T documented as of this encounter Care Teams Product Development Specialist Relationship Specialty Start Date End Date Elsewhere, Pcp PCP - General Family Medicine 07/29/17 [facility] - Laboratory Medicine 04/12/[address] [address] documented as of this encounter
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
--- OUTSIDE RECORDS SUMMARY | 2022-04-13 12:18 | XMS_ITS | Encounter Summary ---
:1955 Author Organization [facility] Address [address] [place] [address] Care Team Providers Name Role Phone Elsewhere, Pcp Primary Care Provider Unavailable Encounter Details Date Type Department Care Team Description 11/27/2020 Hospital Encounter Department of [facility] Trans plant Liver (HCC); Radiology, Chance Osborn M.D. Medication Therapy Skilled Nursing Not Anticoa gulant; [facility] [place] [address] [place] [address] Cirrhosis Cryptogenic (HCC); [place], [place] Screening Exam ination Prostate Cancer; [place] [phone] Screening Examination Skin Cancer [address] [place] [address] [place], [place] (Work) [phone] Social History Tobacco Use [...] Date Recorded Male 05/16/2020 4:27 PM RN NEUROLOGY documented as of this encounter Medications at [...] mouth Transplant Liver (HCC), daily. Medication Therapy Baler Not Anticoagulant sodium chloride USE 4 ML VIA 0 08/30/2020 021 (NEBUSAL) 3 % nebulizer NEBULIZER TWICE solution DAILY tacrolimus (PROGRAF) Take 2 capsules (1 360 capsule 3 202007/16/2021 0.5 mg mg total) by mouth 2 capsuleIndications: (two) times a day. Transplant Liver (HCC), Medication Therapy Skilled Nursing Not Anticoagulant torsemide (DEMADEX) 10 Take 3 tablets (30 270 tablet 3 05/2202/22/2021 mg tablet mg total) by mouth daily. documented as 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 [address] [place] [phone] 04/25/2022 Office Visit Otorhinolaryngology Dex Matta APRN, C.N.P., M.S.N. [address] [place] [phone] 05/08/2022 Appointment Laboratory Medicine Angélica Granger P.A.-C. [address] [place] [phone] 05/08/2022 Clinical Admitting/Central Communication Scheduling 05/10/2022 Appointment Radiology Jeremie Rose M.D. [address] [place] [phone] 05/10/2022 Comprehensive Visit Orthopedic Surgery Warner Graves M.D. [address] [place] [phone] 05/22/2022 Appointment Laboratory Medicine Angélica Granger P.A.-C. [address] [place] [phone] 06/05/2022 Appointment Laboratory Medicine Angélica Granger P.A.-C. [address] [place] [phone] 06/19/2022 Appointment Laboratory Medicine Angélica Granger P.A.-C. [address] [place] [phone] 07/03/2022 Appointment Laboratory Medicine Angélica Granger P.A.-C. [address] [place] [phone] 07/17/2022 Appointment Laboratory Medicine Angélica Granger P.A.-C. [address] [place] [phone] 07/31/2022 Appointment Laboratory Medicine Angélica Granger P.A.-C. [address] [place] [phone] 08/14/2022 Appointment Laboratory Medicine Angélica Granger P.A.-C. [address] [place] [phone] 08/28/2022 Appointment Laboratory Medicine Angélica Granger P.A.-C. [address] [place] [phone] documented as of this encounter Procedures Procedure Name Priority Date/Time Associated Comments Diagnosis DX CHEST AP OR PA RAD - Routine 11/27/2020 9:18 Transplant Liver Re sults for this AND LATERAL 2 (most inpatients AM CDT (HCC) procedure are in VIEWS and all Medication Therapy the resul ts outpatients) Skilled Nursing Not section. Anticoagulant Cirrhosis Cryptogenic (HCC ) Screening Examination Prostate Cancer Screening Examination Skin Cancer documented in this encounter Results DX Chest AP or PA and Lateral 2 Views (11/27/2020 9:18 AM CDT) Anatomical Region Laterality Modality Chest, Thoracic RST LOS, Thoracic ARZ LOS, Thoracic N/A Digital Radiography FLA LOS Specimen (Source) Anatomical Collection Method Collection Time Re ceived Time Location / / Volume Laterality 11/27/2020 9:54 AM CDT Impressions 11/27/2020 9:55 AM CDT No change from 11/12/2020. Pulmonary hyperinflation. Diffuse central bronchial wall thickening. Very mild scarring in the caudal bilateral lungs. Aortic and coronary artery calcif ication. Retroperitoneal vascular stent in the upper abdomen. Degenerative puri es of the skeleton. Chest otherwise negative. Narrative 11/27/2020 9:55 AM CDT EXAM: ??DX CHEST AP OR PA AND LATERAL 2 VIEWS Procedure Note Hellen Horner M.D. - 11/27/2020Formatt ing of this note might be different from the original. EXAM: DX CHEST AP OR PA AND LATERAL 2 EWS IMPRESSION: No change from 11/12/2020. Pulmonary hyp erinflation. Diffuse central bronchial wall thickening. Very mild scarring in the caudal bilateral lungs. Aortic and coronary artery calcif ication. Retroperitoneal vascular stent in the upper abdomen. Degenerative puri es of the skeleton. Chest otherwise negative. [facility] documented in this encounter Visit Diagnoses Diagnosis Transplant Liver (HCC) Medication Therapy Skilled Nursing Not Anticoa gulant Cirrhosis Cryptogenic (HCC) Screening Examination Prostate Cancer Screening Examination Skin Cancer documented in this encounter Additional Health Concerns Assessment Noted Time PHQ-9 Depression Total Score: 3 11/22/2019 7:34 AM CDT documented as of this encounter Care Teams Expediter Relationship Specialty Start Date End Date Elsewhere, Pcp PCP - General Family Medicine 07/29/17 [facility] - Laboratory Medicine 04/12/[address] [phone] documented as of this encounter
--- OUTSIDE RECORDS SUMMARY | 2022-04-13 12:18 | XMS_ITS | Encounter Summary ---
:1955 Author Organization [facility] Address [address] [place] [address] Care Team Providers Name Role Phone Elsewhere, Pcp Primary Care Provider Unavailable Reason for Referral MRI/CAT/PET Scan (Routine) - Closed Specialty Diagnoses / Procedures Referred By Contact Refer red To Contact Radiology Diagnoses Pretransplant Recipient Evaluation Exam Chronic Kidney Disease Stage 4 Glomerular Filtration Rate 15-29 (HCC) Akin Chavez M.D. [facility] Procedures CT Abdomen Pelvis without IV Contrast [address] [place], [place] [phone] Referral ID Status Reason Start Date Expiration Date Visits Requ ested Visits Authorized [id number] Closed 09/15/2020 09/15/2021 1 1 Reason for Visit MRI/CAT/PET Scan (Routine) - Closed Specialty Diagnoses / Procedures Referred By Contact Refer red To Contact Radiology Diagnoses Pretransplant Recipient Evaluation Exam Chronic Kidney Disease Stage 4 Glomerular Filtration Rate 15-29 (HCC) Akin Chavez M.D. [facility] Procedures CT Abdomen Pelvis without IV Contrast [address] [place], [place] [phone] Referral ID Status Reason Start Date Expiration Date Visits Requ ested Visits Authorized [id number] Closed 09/15/2020 09/15/2021 1 1 Encounter Details Date Type Department Care Team Description 11/27/2020 Hospital Encounter Department of Scott, Naim S, Pretran splant Recipient Evaluation Exam; Radiology, Chance Tomlin Chronic Kidney Disease Stage 4 Glomerula r Filtration Rate 15-29 (HCC) Building, in [address] [place], [place] 200 [facility] [address] [place], [place] [phone] (Work) [phone] Social History Tobacco Use Types Packs/Day Years [...] at Date Recorded 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 Medication Therapy Tester Vibrator Equipment Not Anticoagulant sodium chloride USE 4 ML VIA 0 08/30/2020 021 (NEBUSAL) 3 % nebulizer NEBULIZER TWICE solution DAILY tacrolimus (PROGRAF) Take 2 capsules (1 360 capsule 3 202007/16/2021 0.5 mg mg total) by mouth 2 capsuleIndications: (two) times a day. Transplant Liver (HCC), Medication Therapy Tester Vibrator Equipment Not Anticoagulant torsemide (DEMADEX) 10 Take 3 tablets (30 270 tablet 3 05/2202/22/2021 mg tablet mg total) by mouth daily. documented as 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 [address] [place] [phone] 04/25/2022 Office Visit Otorhinolaryngology Dex Matta APRN, C.N.P., M.S.N. [address] [place] [phone] 05/08/2022 Appointment Laboratory Medicine Angélica Granger P.A.-C. [address] [place] [phone] 05/08/2022 Clinical Admitting/Central Communication Scheduling 05/10/2022 Appointment Radiology Jeremie Rose M.D. [address] [place] [phone] 05/10/2022 Comprehensive Visit Orthopedic Surgery Warner Graves M.D. [address] [place] [phone] 05/22/2022 Appointment Laboratory Medicine Angélica Granger P.A.-C. [address] [place] [phone] 06/05/2022 Appointment Laboratory Medicine Angélica Granger P.A.-C. [address] [place] [phone] 06/19/2022 Appointment Laboratory Medicine Angélica Granger P.A.-C. [address] [place] [phone] 07/03/2022 Appointment Laboratory Medicine Angélica Granger P.A.-C. [address] [place] [phone] 07/17/2022 Appointment Laboratory Medicine Angélica Granger P.A.-C. [address] [place] [phone] 07/31/2022 Appointment Laboratory Medicine Angélica Granger P.A.-C. [address] [place] [phone] 08/14/2022 Appointment Laboratory Medicine Angélica Granger P.A.-C. [address] [place] [phone] 08/28/2022 Appointment Laboratory Medicine Angélica Granger P.A.-C. [address] [place] [phone] documented as of this encounter Procedures Procedure Name Priority Date/Time Associated Diagnosis Comme nts CT ABDOMEN RAD - Routine 11/27/2020 12:13 Pretransplant Results f or this PELVIS WITHOUT (most inpatients PM CDT Recipient Evaluation p rocedure are in IV CONTRAST and all Exam the results outpatients) Chronic Kidney section. Disease Stage 4 Glomerular Filtration Rate 15-29 (HCC) documented in this encounter Results CT Abdomen Pelvis without IV Contrast (11/27/2020 12:13 PM CDT) Anatomical Region Laterality Modality Abdomen, Pelvis, Abdominal RST LOS, N/A Comp uted Tomography, Computed Abdominal ARZ LOS, Abdominal FLA LOS Dionicio ography Specimen (Source) Anatomical Collection Method Collection Time Re ceived Time Location / / Volume Laterality 11/27/2020 12:08 PM CDT Impressions 11/27/2020 12:17 PM CDT Moderate calcification proximal common iliac arteries. No significant calcification external iliac arteries. Narrative 11/27/2020 12:17 PM CDT EXAM: ??CT ABDOMEN PELVIS WITHOUT IV CONTRAST COMPARISON: ??11/13/2012 FINDINGS: ??Postoperative changes compat ible with the patient's previous hepatic transplant. Splenomegaly. Mildly atrophi c [place] kidneys. Mild to moderate calcific atherosclerotic disease distal abdominal aorta and both proximal common iliac arteries. The external iliac arter ies have minimal if any calcification present. 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 Colonic diverticulosis. Presumed simple cysts within the kidneys. Again seen are the previously described findings within the lung bases from the prior chest CT dated 10/12/2020. These are unchanged. R emainder negative. Procedure Note Matias Gautam M.D. - 11/27/2020Forma tting of this note might be different from the original. EXAM: CT ABDOMEN PELVIS WITHOUT IV CONTR AST COMPARISON: 11/13/2012 FINDINGS: Postoperative changes compatib le with the patient's previous hepatic transplant. Splenomegaly. Mildly atrophi c [place] kidneys. Mild to moderate calcific atherosclerotic disease distal abdominal aorta and both proximal common iliac arteries. The external iliac arter ies have minimal if any calcification present. 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 Colonic diverticulosis. Presumed simple cysts within the kidneys. Again seen are the previously described findings within the lung bases from the prior chest CT dated 10/12/2020. These are unchanged. R emainder negative. IMPRESSION: Moderate calcification proximal common i liac arteries. No significant calcification external iliac arteries. Akin Chavez M.D. [facility] PROCEDURES documented in this encounter Visit Diagnoses Diagnosis Pretransplant Recipient Evaluation Exam Chronic Kidney Disease Stage 4 Glomerula r Filtration Rate 15-29 (HCC) documented in this encounter Additional Health Concerns Assessment Noted Time PHQ-9 Depression Total Score: 3 11/22/2019 7:34 AM CDT documented as of this encounter Care Teams Edgerman Relationship Specialty Start Date End Date Elsewhere, Pcp PCP - General Family Medicine 07/29/17 [facility] - Laboratory Medicine 04/12/20 [place] [phone] documented as of this encounter
--- OUTSIDE RECORDS SUMMARY | 2022-04-13 12:18 | XMS_ITS | Encounter Summary ---
:1955 Author Organization [facility] Address [address] [place] [phone] Care Team Providers Name Role Phone Elsewhere, Pcp Primary Care Provider Unavailable Reason for Referral Outpatient (Routine) - Closed Specialty Diagnoses / Procedures Referred By Contact Refer red To Contact Diagnoses Cough Unspecified Type Connie Aaron [facility] Procedures Esophageal pH Testing M.B.B.S. [address] [place] [phone] Referral ID Status Reason Start Date Expiration Date Visits Requ ested Visits Authorized [id number] Closed 10/13/2020 10/13/2021 1 1 Outpatient (Routine) - Closed Specialty Diagnoses / Procedures Referred By Contact Refer red To Contact Diagnoses Cough Unspecified Type Connie Aaron [facility] Procedures Esophageal Manometry M.B.B.S. [address] [place], [place] [phone] Referral ID Status Reason Start Date Expiration Date Visits Requ ested Visits Authorized [id number] Closed 10/13/2020 10/13/2021 1 1 Reason for Visit Outpatient (Routine) - Closed Specialty Diagnoses / Procedures Referred By Contact Refer red To Contact Diagnoses [facility] M.B[facility]B.S. [address] [place], [place] [phone] Referral ID Status Reason Start Date Expiration Date Visits Requ ested Visits Authorized [id number] Closed 10/13/2020 10/13/2021 1 1 Encounter Details Date Type Department Care Team Description 11/21/2020 Hospital Encounter Division of Connie Aaron [facility] G[facility] in E, [facility] 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 sodium chloride Inhale 4 mL by 720 mL 0 08/28/202011/26 (NEBUSAL) 3 % nebulizer nebulization 2 (two) solution times a day. albuterol (ACCUNEB) 2.5 Inhale 3 mL (2.5 [...] mouth Transplant Liver (HCC), daily. Medication Therapy Long-Term Not Anticoagulant sodium chloride USE 4 ML VIA 0 08/30/2020 021 (NEBUSAL) 3 % nebulizer NEBULIZER TWICE solution DAILY tacrolimus (PROGRAF) Take 2 capsules (1 360 capsule 3 202007/16/2021 0.5 mg mg total) by mouth 2 capsuleIndications: (two) times a day. Transplant Liver (HCC), Medication Therapy Capacitor Repairer Not Anticoagulant torsemide (DEMADEX) 10 Take 3 tablets (30 270 tablet 3 05/2202/22/2021 mg tablet mg total) by mouth daily. documented as of this encounter Procedure Notes Todd Corey M.D. - 11/21/2020 2:00 PM CDTAssociated Order(s): Esophageal Manometry Pre-Procedure Diagnose(s): Cough Unspecified Type Post-Procedure Diagnose(s): Cough Unspecified Type Esophageal Manometry Date/Time: 11/21/2020 3:26 PM Performed by: Todd Corey M.D. Authorized by: Connie Aaron M.B.BDemetriusSDemetrius Procedure details: TECHNICAL ASPECTS: This was a high-resolution impedance manometry study performed with liquid bolus protocol. RESULTS: The proximal border of the LES was located 47.1 cm from the nares with a total LES length of 2.0 cm.There was no hiatal hernia present. Resting LES pressure was normal at 33.7 mmHg, with complete relaxation reflected by a IRP of 5 pointmmHg. A total of 10 swallows were evaluated of which 5 were normal and 5 were weak. Bolus clearance as measured by impedance was incomplete for 0 of 10. Multiple rapid swallow sequence revealed a DCI ratio of greater than 1. Some inhibitory break through was present. Upper esophageal sphincter function appeared normal. OVERALL IMPRESSION: #1 [place] Classification: Normal manometry Todd Corey MD documented in this encounter Plan of Treatment Upcoming Encounters Date Type Specialty Care Team Description 04/24/2022 Appointment Laboratory Medicine Angélica Granger P.A.-C. [address] [place] [phone] 04/25/2022 Office Visit Otorhinolaryngology Dex Matta APRN, C.N.P., M.S.N. [address] [place] [phone] 05/08/2022 Appointment Laboratory Medicine Angélica Granger P.A.-C. [address] [place] [phone] 05/08/2022 Clinical Admitting/Central Communication Scheduling 05/10/2022 Appointment Radiology Jeremie Rose M.D. [address] [place] [phone] 05/10/2022 Comprehensive Visit Orthopedic Surgery Warner Graves M.D. [address] [place] [phone] 05/22/2022 Appointment Laboratory Medicine Angélica Granger P.A.-C. [address] [place] [phone] 06/05/2022 Appointment Laboratory Medicine Angélica Granger P.A.-C. [address] [place] [phone] 06/19/2022 Appointment Laboratory Medicine Angélica Granger P.A.-C. [address] [place] [phone] 07/03/2022 Appointment Laboratory Medicine Angélica Granger P.A.-C. [address] [place] [phone] 07/17/2022 Appointment Laboratory Medicine Angélica Granger P.A.-C. [address] [place] [phone] 07/31/2022 Appointment Laboratory Medicine Angélica Granger P.A.-C. [address] [place] [phone] 08/14/2022 Appointment Laboratory Medicine Angélica Granger P.A.-C. [address] [place] [phone] 08/28/2022 Appointment Laboratory Medicine Angélica Granger P.A.-C. [address] [place] [phone] documented as of this encounter Procedures Procedure Name Priority Date/Time Associated Comments Diagnosis ESOPHAGEAL PH Routine 11/22/2020 1:30 PM Cough Results for this TESTING CDT procedure are i n the results section. DE ESOPH IMPED Routine 11/21/2020 3:26 PM Cough Results for this FUNCTION TEST CDT procedure are in the results section. DE ESOPH MOTILITY Routine 11/21/2020 3:26 PM Cough Resu lts for this STUDY CDT procedure are i n the results section. documented in this encounter Results Esophageal pH Testing (11/22/2020 1:30 PM CDT) Narrative [employer] - 11/22/2020 1:30 PM CDT Santana Montiel M.D. ? 11/22/2020 ??3:13 PM Patient: Bruce Singh ?? [id number] Gender: Male Physician: Louie Montiel [phone] Age: ??Referred by: Zuleyka Aaron [phone] : 1955 Combat Control: Mulugeta rivero RN Height: 177.8cm Medication: Off Weight: 174 lb Date: 11/21/2020 REFLUX MONITORING SUMMARY: ??Study state s off therapy but I suspect an acid suppressing medication w as taken prior to the study. ??Minimal upright and no recumben t esophageal acid exposure. ??Physiologic non-acid exposur e. ??Poor correlation of cough to reflux. ??Overall, this is a ne gative study. [pH]Acid Exposure Summary Total Normal U pright Normal Supine Normal Ch 1 Prox. ? Acid exposure time (%) 0.7 <4.2 1 .3 <6.3 0.0 <1.2 ? Longest reflux (min) 2.9 <9.2 2.9 ??N/A ? DeMeester Score 3.0 <14.7 ? Ch 2 Dist. ? Acid exposure time (%) 44.0 ??12. 6 ??75.7 ? Longest reflux (min) 145.0 ??10.8 ??145.0 ?? [Z]Reflux Episode Activity Summary Total Upright Supine All reflux episodes* 31 28 3 Proximal episodes* 15 15 0 Bolus Exposure Time (%) 0.7 1.3 0.0 Bolus Exposure Time (%)(Normal) <2.3 <4. 2 <1.6 * not normalized [Z]Symptom Association Summary Cough Number of occurrences 41 Acid reflux 4 Weakly acidic reflux 2 Non-acid reflux 0 All reflux 6 Symptom Index (SI) 14.6 Symptom Association Probability (SAP) 97 .4 Note: 1. pH normal values in the report are fr om publications wherein subjects are not taking acid suppressive medication, irrespective of the medication selection in the Diary . 2. Impedance normal values in the report are from Keith et al., Clinical Gastro. & Hepato. 2013. The nor mal values are dependent on the medication selection in the Diary . REFLUX ANALYSIS BASED ON pH MEASUREMENT Period Durations (HH:MM) Total Upright S upine Total Time 22:55 12:25 10:30 Analysis Time 21:06 10:36 10:30 [pH]Acid Reflux Analysis Total Upright S upine Ch 1 Prox. ? Acid exposure time (HH:MM) 00:08 00:08 00:00 ? Acid exposure time (%) 0.7 1.3 0. 0 ? Number of refluxes 15 15 0 ? Number of long refluxes 0 0 0 ? Longest reflux (min) 2.9 2.9 N/A Ch 2 Dist. ? Acid exposure time (HH:MM) 09:17 01:20 07:57 ? Acid exposure time (%) 44.0 12.6 75.7 ? Number of refluxes 237 144 95 ? Number of long refluxes 10 1 9 ? Longest reflux (min) 145.0 10.8 1 45.0 [pH]DeMeester Score Score Normal* Ch 1 Prox. 3.0 <14.7 * 95th percentile REFLUX ANALYSIS BASED ON Z MEASUREMENT A ND CLASSIFIED BASED ON pH [Z]Normalized Reflux Episode Activity* T otal Normal Acid reflux 3 <40.0 Weakly acidic reflux 28 <21.0 Non-acid reflux 3 <0.0 All reflux 35 <53.0 * Episodes/24 hr. 95th percentile [Z]Reflux Episode Activity Total Upright Supine Acid reflux 3 3 0 Weakly acidic reflux 25 22 3 Non-acid reflux 3 3 0 All reflux 31 28 3 [Z]Reflux Composition Total Normal Uprig ht Normal Supine Normal Liquid Only 29 ??26 ??3 ?? Mixed 2 ??2 ??0 ?? Gas Only 73 ??67 ??6 ?? [Z]Bolus Exposure Time Total Upright Sup ine Acid reflux 00:01 00:01 00:00 Weakly acidic reflux 00:07 00:07 00:00 Non-acid reflux 00:01 00:01 00:00 All reflux 00:09 00:08 00:00 5.0 cm above LES [Z]Reflux Symptom Index Cough Acid reflux 9.8 Weakly acidic reflux 4.9 Non-acid reflux 0.0 All reflux 14.6 [Z]Reflux Symptom Association Probabilit y* Cough Acid reflux 99.2 Weakly acidic reflux 73.0 Non-acid reflux 0.0 All reflux 97.4 * Probability that symptom and reflux ar e not associated solely by chance, (>95% is significant) [Z]Proximal Reflux Count Total Upright S upine Acid reflux 2 2 0 Weakly acidic reflux 12 12 0 Non-acid reflux 1 1 0 All reflux 15 15 0 15.0 cm above LES [Z]Additional Analysis Parameters Value Normal Mean Nocturnal Baseline Impedance (MNBI, kOhm) 3.31 ?? 3.0 cm above LES Procedure Description Probe pack number: [id number]. Probe lot duy r: [id number]. Medications off for study, patient does not take any acid suppression medications. Placed via ESM at 42cm by Collin Benjamin RN. Gastric pH: 2.1. Post adelfo pH: 4.2, 4 .1 and 7.0, 7.1. ?? Indications Interpretations Study states off therapy but I suspect a n acid suppressing medication was taken prior to the study. ??Minimal upright and no recumbent esophageal acid exposure. ??Ph ysiologic non-acid exposure. ??Poor correlation of cough to reflux. ??Overall, this is a negative study. ? Santana Montiel M.D. ?? Connie Barron GI PROCEDURE ORDERABLES Performing Organization Address [facility] Phon e Number [employer] NA DE ESOPH MOTILITY STUDY, DE ESOPH IMPED FUNCTION TEST (11/21/2020 3:26 PM CDT) Narrative [facility] - 11/21/2020 3:26 PM CDT Todd Corey M.D. ? 11/21/2020 ??3:27 PM Esophageal Manometry Date/Time: 11/21/2020 3:26 PM Performed by: Todd Coery M.D. Authorized by: Connie Aaron M.B.B .S. Procedure details: ?? TECHNICAL ASPECTS: This was a high-resolution impedance man ometry study performed with liquid bolus protocol. RESULTS: The proximal border of the LES was locat ed 47.1 cm from the nares with a total LES length of 2.0 cm. ??There was no hiatal hernia present. Resting LES pressure was normal at 33.7 mmHg, with complete relaxation reflected by a IRP of 5 point mmHg. A total of 10 swallows were evaluated of which 5 were normal and 5 were weak. ??Bolus clearance as measured by i mpedance was incomplete for 0 of 10. Multiple rapid swallow sequence revealed a DCI ratio of greater than 1. Some inhibitory break through was presen t. Upper esophageal sphincter function appeared normal. OVERALL IMPRESSION: #1 [place] Classification: ??Normal mano ry Todd Corey MD Connie Barron GI PROCEDURE ORDERABLES Performing Organization Address [facility] Phon e Number MMODAL MMODAL NA documented in this encounter Visit Diagnoses Diagnosis Cough Unspecified Type documented in this encounter Administered Medications Inactive Administered Medications - up to 3 most recent administrations Medication Order MAR Action Action Date Dose Rate Site lidocaine HCL 2 % Given 11/21/2020 1:52 PM 1 application Right Nare topical jelly (UROJET) CDT nasal, Code/trauma/sedation medication, Starting on Fri11/21/20 at 1352 documented in this encounter Additional Health Concerns Assessment Noted Time PHQ-9 Depression Total Score: 3 11/22/2019 7:34 AM CDT documented as of this encounter Care Teams Sole Trimmer Relationship Specialty Start Date End Date Elsewhere, Pcp PCP - General Family Medicine 07/29/17 [facility] - Laboratory Medicine 04/12/20 [place] [phone] documented as of this encounter
--- OUTSIDE RECORDS SUMMARY | 2022-04-13 12:18 | XMS_ITS | Encounter Summary ---
:1955 Author Organization [facility] Address [address] [place] [id number] Care Team Providers Name Role Phone Elsewhere, Pcp Primary Care Provider Unavailable Reason for Referral Outpatient (Routine) - Closed Specialty Diagnoses / Procedures Referred By Contact Refer red To Contact Diagnoses Cough Unspecified Type Connie Aaron [facility] Procedures Esophageal pH Testing Impedance Removal [facility] [address] [place] [phone] Referral ID Status Reason Start Date Expiration Date Visits Requ ested Visits Authorized [id number] Closed 10/13/2020 10/13/2021 1 1 Reason for Visit Outpatient (Routine) - Closed Specialty Diagnoses / Procedures Referred By Contact Refer red To Contact Diagnoses Cough Unspecified Type Connie Aaron [facility] Procedures Esophageal pH Testing Impedance Removal [facility] [address] [place] [phone] Referral ID Status Reason Start Date Expiration Date Visits Requ ested Visits Authorized [id number] Closed 10/13/2020 10/13/2021 1 1 Encounter Details Date Type Department Care Team Description 11/22/2020 Hospital Encounter Division of Connie Aaron [facility] in [facility] 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 Medication Therapy Fpc Not Anticoagulant sodium chloride USE 4 ML VIA 0 08/30/2020 021 (NEBUSAL) 3 % nebulizer NEBULIZER TWICE solution DAILY tacrolimus (PROGRAF) Take 2 capsules (1 360 capsule 3 202007/16/2021 0.5 mg mg total) by mouth 2 capsuleIndications: (two) times a day. Transplant Liver (HCC), Medication Therapy Miter Sawyer Not Anticoagulant torsemide (DEMADEX) 10 Take 3 tablets (30 270 tablet 3 05/2202/22/2021 mg tablet mg total) by mouth daily. documented as of this encounter Procedure Notes Santana Montiel M.D. - 11/22/2020 1:30 PM CDTAssociated Order(s): ESOPHAGEAL PH TESTING Images from the original note were not included. Patient: Bruce Singh [id number] Gender: Male Physician: Louie Montiel [phone] Age: Referred by: Zuleyka Aaron [id number] : 1955 Oil Dispatcher: Mulugeta Naylor RN Height: 177.8cm Medication: Off Weight: 174 lb Date: 11/21/2020 REFLUX MONITORING SUMMARY: Study states off therapy but I suspect an acid suppressing medication wastaken prior to the study. Minimal upright and no recumbent esophageal acid exposure. Physiologic non-acid exposure. Poor correlation of cough to reflux. Overall, this is a negative study. [pH]Acid Exposure Summary Total Normal Upright Normal Supine Normal Ch 1 Prox. Acid exposure time (%) 0.7 <4.2 1.3 <6.3 0.0 <1.2 Longest reflux (min) 2.9 <9.2 2.9 N/A DeMeester Score 3.0 <14.7 Ch 2 Dist. Acid exposure time (%) 44.0 12.6 75.7 Longest reflux (min) 145.0 10.8 145.0 [Z]Reflux Episode Activity Summary Total Upright Supine All reflux episodes* 31 28 3 Proximal episodes* 15 15 0 Bolus Exposure Time (%) 0.7 1.3 0.0 Bolus Exposure Time (%)(Normal) <2.3 <4.2 <1.6 * not normalized [Z]Symptom Association Summary Cough Number of occurrences 41 Acid reflux 4 Weakly acidic reflux 2 Non-acid reflux 0 All reflux 6 Symptom Index (SI) 14.6 Symptom Association Probability (SAP) 97.4 Note: 1. pH normal values in the report are from publications wherein subjects are not taking acid suppressive medication, irrespective of the medication selection in the Diary. 2. Impedance normal values in the report are from Keith et al., Clinical Gastro. & Hepato. 2013. The normal values are dependent on the medication selection in the Diary. REFLUX ANALYSIS BASED ON pH MEASUREMENT Period Durations (HH:MM) Total Upright Supine Total Time 22:55 12:25 10:30 Analysis Time 21:06 10:36 10:30 [pH]Acid Reflux Analysis Total Upright Supine Ch 1 Prox. Acid exposure time (HH:MM) 00:08 00:08 00:00 Acid exposure time (%) 0.7 1.3 0.0 Number of refluxes 15 15 0 Number of long refluxes 0 0 0 Longest reflux (min) 2.9 2.9 N/A Ch 2 Dist. Acid exposure time (HH:MM) 09:17 01:20 07:57 Acid exposure time (%) 44.0 12.6 75.7 Number of refluxes 237 144 95 Number of long refluxes 10 1 9 Longest reflux (min) 145.0 10.8 145.0 [pH]DeMeester Score Score Normal* Ch 1 Prox. 3.0 <14.7 * 95th percentile REFLUX ANALYSIS BASED ON Z MEASUREMENT AND CLASSIFIED BASED ON pH [Z]Normalized Reflux Episode Activity* Total Normal Acid reflux 3 <40.0 Weakly acidic reflux 28 <21.0 Non-acid reflux 3 <0.0 All reflux 35 <53.0 * Episodes/24 hr. 95th percentile [Z]Reflux Episode Activity Total Upright Supine Acid reflux 3 3 0 Weakly acidic reflux 25 22 3 Non-acid reflux 3 3 0 All reflux 31 28 3 [Z]Reflux Composition Total Normal Upright Normal Supine Normal Liquid Only 29 26 3 Mixed 2 2 0 Gas Only 73 67 6 [Z]Bolus Exposure Time Total Upright Supine Acid reflux 00:01 00:01 00:00 Weakly acidic reflux 00:07 00:07 00:00 Non-acid reflux 00:01 00:01 00:00 All reflux 00:09 00:08 00:00 5.0 cm above LES [Z]Reflux Symptom Index Cough Acid reflux 9.8 Weakly acidic reflux 4.9 Non-acid reflux 0.0 All reflux 14.6 [Z]Reflux Symptom Association Probability* Cough Acid reflux 99.2 Weakly acidic reflux 73.0 Non-acid reflux 0.0 All reflux 97.4 * Probability that symptom and reflux are not associated solely by chance, (>95% is significant) [Z]Proximal Reflux Count Total Upright Supine Acid reflux 2 2 0 Weakly acidic reflux 12 12 0 Non-acid reflux 1 1 0 All reflux 15 15 0 15.0 cm above LES [Z]Additional Analysis Parameters Value Normal Mean Nocturnal Baseline Impedance (MNBI,kOhm) 3.31 3.0 cm above LES Procedure Description Probe pack number: [id number]. Probe lot number: [id number]. Medications off for study, patient does not take any acid suppression medications. Placed via ESM at 42cm by Collin Benjamin RN. Gastric pH: 2.1. Post adelfo pH: 4.2, 4.1 and 7.0, 7.1. Indications Interpretations Study states off therapy but I suspect an acid suppressing medication was taken prior to the study. Minimal upright and no recumbent esophageal acid exposure. Physiologic non-acid exposure. Poor correlation of cough to reflux. Overall, this is a negative study. Santana Montiel M.D. documented in this encounter Plan of Treatment Upcoming Encounters Date Type Specialty Care Team Description 04/24/2022 Appointment Laboratory Medicine Angélica Granger P.A.-C. [address] [place] [phone] 04/25/2022 Office Visit Otorhinolaryngology Dex Matta APRN, C.N.P., M.S.N. [address] [place] [phone] 05/08/2022 Appointment Laboratory Medicine Angélica Granger P.A.-C. [address] [place] [phone] 05/08/2022 Clinical Admitting/Central Communication Scheduling 05/10/2022 Appointment Radiology Jeremie Rose M.D. [address] [place] [phone] 05/10/2022 Comprehensive Visit Orthopedic Surgery Warner Graves M.D. [address] [place] [phone] 05/22/2022 Appointment Laboratory Medicine Angélica Granger P.A.-C. [address] [place] [phone] 06/05/2022 Appointment Laboratory Medicine Angélica Granger P.A.-C. [address] [place] [phone] 06/19/2022 Appointment Laboratory Medicine Angélica Granger P.A.-C. [address] [place] [phone] 07/03/2022 Appointment Laboratory Medicine Angélica Granger P.A.-C. [address] [place] [address] [phone] 07/17/2022 Appointment Laboratory Medicine Angélica Granger P.A.-C. [address] [place] [phone] 07/31/2022 Appointment Laboratory Medicine Angélica Granger P.A.-C. [address] [place] [phone] 08/14/2022 Appointment Laboratory Medicine Angélica Granger P.A.-C. [address] [place] [address] [phone] 08/28/2022 Appointment Laboratory Medicine Angélica Granger P.A.-C. [address] [place] [address] [phone] Scheduled Orders Name Type Priority Associated Diagnoses Order S chedule Esophageal pH Testing GI Routine Cough Once f or 1 Occurrences Impedance Removal starting 0 11/22/2020 until 11/22/2020 documented as of this encounter Procedures Procedure Name Priority Date/Time Associated Comments Diagnosis ESOPHAGEAL PH Routine 11/22/2020 1:30 PM Cough Results for this TESTING CDT procedure are i n the results section. documented in this encounter Visit Diagnoses Diagnosis Cough Unspecified Type documented in this encounter Additional Health Concerns Assessment Noted Time PHQ-9 Depression Total Score: 3 11/22/2019 7:34 AM CDT documented as of this encounter Care Teams Ordnance Engineering Technician Relationship Specialty Start Date End Date Elsewhere, Pcp PCP - General Family Medicine 07/29/17 [facility] - Laboratory Medicine 04/12/[address] [phone] documented as of this encounter
--- OUTSIDE RECORDS SUMMARY | 2022-04-13 12:18 | XMS_ITS | Encounter Summary ---
:1955 Author Organization [facility] Address [address] [place] [address] Care Team Providers Name Role Phone Elsewhere, Pcp Primary Care Provider Unavailable Reason for Referral Outpatient (Routine) - Closed Specialty Diagnoses / Procedures Referred By Contact Refer red To Contact Diagnoses Transplant Liver (HCC) Medication Therapy Door Liner Not Anticoagulant Cirrhosis Cryptogenic (HCC) Screening Examination Prostate Cancer Screening Examination Skin Cancer Willis Mcdermott M.D. [facility] Procedures US Liver Transplant 200 [place] [phone] Referral ID Status Reason Start Date Expiration Date Visits Requ ested Visits Authorized [id number] Closed 09/14/2020 09/14/2021 1 1 Reason for Visit Outpatient (Routine) - Closed Specialty Diagnoses / Procedures Referred By Contact Refer red To Contact Diagnoses Transplant Liver (HCC) Medication Therapy Door Liner Not Anticoagulant Cirrhosis Cryptogenic (HCC) Screening Examination Prostate Cancer Screening Examination Skin Cancer Willis Mcdermott M.D. [facility] Procedures US Liver Transplant [address] [place] [phone] Referral ID Status Reason Start Date Expiration Date Visits Requ ested Visits Authorized [id number] Closed 09/14/2020 09/14/2021 1 1 Encounter Details Date Type Department Care Team Description 11/27/2020 Hospital Encounter Department of Willis Mcdermott Trans plant Liver (HCC); Radiology, Kd Osborn M.D. Medication Therapy Door Liner Not Anticoa gulant; Building, in [address] 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 Medication Therapy [facility]it[facility]iary Not Anticoagulant sodium chloride USE 4 ML VIA 0 08/30/2020 021 (NEBUSAL) 3 % nebulizer NEBULIZER TWICE solution DAILY tacrolimus (PROGRAF) Take 2 capsules (1 360 capsule 3 202007/16/2021 0.5 mg mg total) by mouth 2 capsuleIndications: (two) times a day. Transplant Liver (HCC), Medication Therapy Penitentiary Not Anticoagulant torsemide (DEMADEX) 10 Take 3 tablets (30 270 tablet 3 05/2202/22/2021 mg tablet mg total) by mouth daily. documented as 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 [address] [place] [phone] 04/25/2022 Office Visit Otorhinolaryngology Dex Matta APRN, C.N.P., M.S.N. [address] [place] [phone] 05/08/2022 Appointment Laboratory Medicine Angélica Granger P.A.-C. [address] [place] [phone] 05/08/2022 Clinical Admitting/Central Communication Scheduling 05/10/2022 Appointment Radiology Jeremie Rose M.D. [address] [place] [phone] 05/10/2022 Comprehensive Visit Orthopedic Surgery Warner Graves M.D. [address] [place] [phone] 05/22/2022 Appointment Laboratory Medicine Angélica Granger P.A.-C. [address] [place] [phone] 06/05/2022 Appointment Laboratory Medicine Angélica Granger P.A.-C. [address] [place] [phone] 06/19/2022 Appointment Laboratory Medicine Angélica Granger P.A.-C. [address] [place] [phone] 07/03/2022 Appointment Laboratory Medicine Angélica Granger P.A.-C. [address] [place] [phone] 07/17/2022 Appointment Laboratory Medicine Angélica Granger P.A.-C. [address] [place] [phone] 07/31/2022 Appointment Laboratory Medicine Angélica Granger P.A.-C. [address] [place] [phone] 08/14/2022 Appointment Laboratory Medicine Angélica Granger P.A.-C. [address] [place] [phone] 08/28/2022 Appointment Laboratory Medicine Angélica Granger P.A.-C. [address] [place] [phone] documented as of this encounter Procedures Procedure Name Priority Date/Time Associated Comments Diagnosis US LIVER RAD - Routine 11/27/2020 9:30 Transplant Liver Results for this TRANSPLANT (most inpatients AM CDT (HCC) procedure are in and all Medication Therapy the resul ts outpatients) Door Liner Not section. Anticoagulant Cirrhosis Cryptogenic (HCC ) Screening Examination Prostate Cancer Screening Examination Skin Cancer documented in this encounter Results US Liver Transplant (11/27/2020 9:30 AM CDT) Anatomical Region Laterality Modality Abdomen, Ultrasound RST LOS, Ultrasound ARZ LOS, Ultrasound FLA N/A Ultrasound LOS Specimen (Source) Anatomical Collection Method Collection Time Re ceived Time Location / / Volume Laterality 11/27/2020 9:32 AM CDT Impressions 11/27/2020 9:39 AM CDT 1. Normal hepatic allograft and vasculature. 2. Stable cystic lesions in the pancreas . 3. Thin, echogenic renal parenchyma bila terally. Narrative 11/27/2020 9:39 AM CDT EXAM: US LIVER TRANSPLANT Exam performed with color and spectral D oppler analysis. COMPARISON: 11/22/2019 FINDINGS: Transplant date: 06/13/2013 Hepatic allograft: Normal. Gallbladder: Absent. Bile ducts: Not dilated. Doppler Splenic, portal, and hepatic vei ns are patent with antegrade flow. The main hepatic artery is patent with anteg rade flow. 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 MHA peak systolic velocity: 116 cm/s MHA RI: 0.74 RHA RI: 0.76 LHA RI: 0.72 Resistive indices: Normal. IVC: Normal where seen. Pancreas: Again seen are cystic lesions in the pancreatic head and pancreatic tail, the largest is found in the pancre atic tail and measures 1.7 cm. Right kidney: Length: 10.6 cm. Slightly echogenic, thinned parenchyma. 1.7 cm cyst. No hydronephrosis. Left kidney: Length: 9.2 cm. Slightly ec hogenic, thinned parenchyma. Two cysts, the largest measuring 1.3 cm. No hydrone phrosis. Spleen: Normal. ??Length: 12.9 cm Aorta: Normal caliber. Other: No ascites. Procedure Note Sathya Rojas M.D. - 11/27/2020Formatti ng of this note might be different from the original. EXAM: US LIVER TRANSPLANT Exam performed with color and spectral D oppler analysis. COMPARISON: 11/22/2019 FINDINGS: Transplant date: 06/13/2013 Hepatic allograft: Normal. Gallbladder: Absent. Bile ducts: Not dilated. Doppler Splenic, portal, and hepatic vei ns are patent with antegrade flow. The main hepatic artery is patent with anteg rade flow. 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 MHA peak systolic velocity: 116 cm/s MHA RI: 0.74 RHA RI: 0.76 LHA RI: 0.72 Resistive indices: Normal. IVC: Normal where seen. Pancreas: Again seen are cystic lesions in the pancreatic head and pancreatic tail, the largest is found in the pancre atic tail and measures 1.7 cm. Right kidney: Length: 10.6 cm. Slightly echogenic, thinned parenchyma. 1.7 cm cyst. No hydronephrosis. Left kidney: Length: 9.2 cm. Slightly ec hogenic, thinned parenchyma. Two cysts, the largest measuring 1.3 cm. No hydrone phrosis. Spleen: Normal. Length: 12.9 cm Aorta: Normal caliber. Other: No ascites. IMPRESSION: 1. Normal hepatic allograft and vasculat ure. 2. Stable cystic lesions in the pancreas . 3. Thin, echogenic renal parenchyma bila terally. Willis HEREDIA US PROCEDURES documented in this encounter Visit Diagnoses Diagnosis Transplant Liver (HCC) Medication Therapy Penitentiary Not Anticoa gulant Cirrhosis Cryptogenic (HCC) Screening Examination Prostate Cancer Screening Examination Skin Cancer documented in this encounter Additional Health Concerns Assessment Noted Time PHQ-9 Depression Total Score: 3 11/22/2019 7:34 AM CDT documented as of this encounter Care Teams Slicing Machine Feeder Relationship Specialty Start Date End Date Elsewhere, Pcp PCP - General Family Medicine 07/29/17 [facility] - Laboratory Medicine 04/12/20 [place] [phone] documented as of this encounter
--- OUTSIDE RECORDS SUMMARY | 2022-04-13 12:18 | XMS_ITS | Encounter Summary ---
:1955 Author Organization [facility] Address [address] [place] [address] Care Team Providers Name Role Phone Elsewhere, Pcp Primary Care Provider Unavailable Reason for Visit Transplant (Routine) - Closed Specialty Diagnoses / Procedures Referred By Contact Refer red To Contact Transplant Surgery / Diagnoses Pretransplant Recipient Evaluation Exam Chronic Kidney Disease Stage 4 Glomerular Filtration Rate 15-29 (HCC) Akin Chavez M.D. [facility] Transplant [address] [place] [phone] Referral ID Status Reason Start Date Expiration Date Visits Requ ested Visits Authorized [id number] Closed 09/15/2020 09/15/2021 1 1 Encounter Details Date Type Department Care Team Description 11/27/2020 Nurse Only [facility] Akin York M.D. [address] [place] [phone] for Transplantation and Nayeli Infante R.N., C.C.T.C. 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 - 11/27/2020 2:00 PM CDT Met with Bruce Singh for re-evaluation and education as a potential kidney recipient. The patient education provided at the time of their evaluation appointments was reinforced and discussed. Bruce Singh is a 65 y.o. 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 If the patient does identify potential living donors, the recipient was encouraged to notify the donors to call their donor coordinator for kits. Paired donation is a procedure that allows individuals who wish to give a kidney to their loved one, but cannot because they are incompatible (they have thewrong blood type or have immunity to their donor kidney). In paired donation, the donor and recipient are matched with another incompatible donor/recipient pair and the kidneys are exchanged between the pairs. The patient previously agreed to participate in the KPD program. It was discussed with the patient that their information will be presented to our multidisciplinary Selection Conference for final approval. Their continued wait on the UNOS list was discussed. The patient previously agreed to participate in the KDPI program. Learning needs assessed with no barriers identified. All questions answered. Patient verbalized understanding and was given my card and instructed to contact me with further questions or concerns. Patient's modified Karnofsky performance status scale (%): 80: Normal activity with effort (e.g., preemptive transplant but dialysis imminent or dialyzes at home [home PD or home HD]; recipient on followup who has returned to normal activity but acknowledges physical effort to do so)80: Able to carry on normal activity and to work; no special care needed: Normal activity with effort. documented in this encounter Plan of Treatment Upcoming Encounters Date Type Specialty Care Team Description 04/24/2022 Appointment Laboratory Medicine Angélica Granger P.A.-CDemetrius [address] [place] [phone] 04/25/2022 Office Visit Otorhinolaryngology Dex Matta APRN, C.N.P., M.S.N. [address] [place] [phone] 05/08/2022 Appointment Laboratory Medicine Angélica Granger P.A.-CDemetrius [address] [place] [phone] 05/08/2022 Clinical Admitting/Central Communication Scheduling 05/10/2022 Appointment Radiology Jeremie Rose M.D. [address] [place] [phone] 05/10/2022 Comprehensive Visit Orthopedic Surgery Warner Graves M.D. [address] [place] [phone] 05/22/2022 Appointment Laboratory Medicine Angélica Granger P.A.-C. [address] [place] [phone] 06/05/2022 Appointment Laboratory Medicine Angélica Granger P.A.-C. [address] [place] [phone] 06/19/2022 Appointment Laboratory Medicine Angélica Granger P.A.-C. [address] [place] [phone] 07/03/2022 Appointment Laboratory Medicine Angélica Granger P.A.-C. [address] [place] [phone] 07/17/2022 Appointment Laboratory Medicine Angélica Granger P.A.-C. [address] [place] [phone] 07/31/2022 Appointment Laboratory Medicine Angélica Granger P.A.-C. [address] [place] [phone] 08/14/2022 Appointment Laboratory Medicine Angélica Granger P.A.-C. [address] [place] [phone] 08/28/2022 Appointment Laboratory Medicine Angélica Granger P.A.-C. [address] [place] [phone] documented as of this encounter Visit Diagnoses Diagnosis Pretransplant Recipient Evaluation Exam Chronic Kidney Disease Stage 4 Glomerula r Filtration Rate 15-29 (HCC) documented in this encounter Additional Health Concerns Assessment Noted Time PHQ-9 Depression Total Score: 3 11/22/2019 7:34 AM CDT documented as of this encounter Care Teams Varnish Inspector Relationship Specialty Start Date End Date Elsewhere, Pcp PCP - General Family Medicine 07/29/17 [facility] - Laboratory Medicine 04/12/20 [place] [address] documented as of this encounter
--- OUTSIDE RECORDS SUMMARY | 2022-04-13 12:18 | XMS_ITS | Encounter Summary ---
:1955 Author Organization [facility] Address [address] [place] [address] Care Team Providers Name Role Phone Elsewhere, Pcp Primary Care Provider Unavailable Reason for Visit Appointment Request (Routine) - Closed Specialty Diagnoses / Procedures Referred By Contact Refer red To Contact Transplant Diagnoses Aftercare Transplant Liver (HCC) [facility] Procedures Referral ID Status Reason Start Date Expiration Date Visits Requ ested Visits Authorized [id number] Closed 05/08/2020 05/08/2021 1 1 Encounter Details Date Type Department Care Team Description 11/28/2020 Office Visit Angélica Ching Trans plant Liver (HCC); [facility], P. A.-C. Medication Therapy Ironer Hand Not Anticoa gulant; and Clinical Regeneration [address] Cirrhosis Cryptogenic (HCC); in [facility] [place], [place] Screening Examination Prosta te Cancer; [address] [facility] [id number] [place] [phone] Social History Tobacco Use Types Packs/Day Years [...] at Date Recorded Male 05/16/2020 4:27 PM HAND B[employer] documented as of this encounter H&P Notes Angélica Granger P.A.-C. - 11/28/2020 3:00 PM CDT SUBJECTIVE CHIEF COMPLAINT/REASON FOR VISIT Annual eval following liver transplantation. HISTORY OF PRESENT ILLNESS Mr. 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 Otherissues include umbilical hernia repair. His ongoing issues have been hyperlipidemia, hypertension, hypothyroidism, chronic kidney disease stage 4, being evaluated for a kidney transplant. Other issues include a history of right lower lobe consolidation secondary to recurrent aspiration pneumonia. The patient has been closely followed by Transplant, Infectious Disease and Pulmonary. He is currently undergoing further testing to look for an etiology of aspiration. He is scheduled to followup in Pulmonology later this week. He still he has a chronic cough but no fever or chills. Recent COVID-19 infection He was hospitalized November 12 with COVID-19 infection. He did receive the vaccine August 06 and September 03; this was the Moderna vaccination. Of note, he is on triple immunosuppression. He was enrolled in the home monitoring program and did quite well. Anemia Patient has chronic kidney disease, stage 4. He was evaluated by Dr. Chavez, see his note for further detail. He has chronic anemia likely from his renal insufficiency. He states he was given an infusionof iron. His hemoglobin is 8.9. Dr. Chavez feels he would benefit from being seen in the [facility] and they can discuss whether or not he should require Aranesp or Epogen. Patient's only complaints are cough and fatigue. Cough is being evaluated further and his fatigue islikely from his anemia, which is being addressed. He did, again, receive a recent Feraheme infusion.He has no other questions, concerns, or complaints at this time. All of the systems are reviewed and negative. OBJECTIVE PHYSICAL EXAMINATION General: Pleasant-appearing male, in no acute distress. Pupils : Equal, reactive, nonicteric. Mouth: No erythema or exudate. Neck: Thyroid negative. Lungs: Clear. Heart: Regular rate and rhythm. Abdomen: He has a hernia at the vertical incision which is 3 x 3 cm, reducible, nontender. No hepatosplenomegaly. No guarding. Extremities: No edema. Neuropsych: He is oriented x3. Mood and affect normal. ASSESSMENT / PLAN #1 Mr. 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 We will continue to follow laboratory tests per protocol. #2 Immunosuppression Continues on triple immunosuppression with Prograf (current level is 1.3), CellCept 500 mg twice a day, and prednisone 5 mg daily. We will continue with current regimen. #3 Chronic kidney disease, stage 4 The patient is undergoing evaluation for kidney transplantation. He will be presented to the selection conference. Please see Dr. Chavez's note for further detail. He feels he would benefit from a followup to the [facility] so they can provide ongoing close followup. He did receive IVFeraheme. #4 Anemia Hemoglobin 8.9. Received IV Feraheme. Will be referred to the [facility] for further management. If his hemoglobin does not improve he may need to start JORGE L. #5 Recent COVID-19 infection Patient received 2 doses of the Moderna vaccine in July and August. He developed COVID-19 infection in October and was hospitalized; overall, has done well. He did receive monoclonal antibodies, overallhas resolved. #6 Chronic cough with a history of right lower lobe pneumonia secondary to aspiration Patient is followed closely by Pulmonary. He continues to have a cough and that is being evaluated further with swallowing studies and further testing. He will follow up with Pulmonary later this week.Will await further recommendations. He has no fever, chills, night sweats, and no change on chest x-ray. #7 Hypertension, chronic kidney disease Continue with current therapy per Nephrology. #8 History of left renal artery stenosis, status post stent placement Undergoing CT scan for further evaluation for kidney transplant workup. #9 Fatigue Likely from his anemia and chronic kidney disease. Again, he will be following up with the [facility] for further management. #10 Bipolar disorder Stable, doing well. #11 Obstructive uropathy Continues on alpha blockade, doing well. #12 Health maintenance Up to date on colon screening in August 2017. PSA normal 11/27/2020. #13 History of side-branch IPMN, unchanged on ultrasound Continue to follow. #14 Other testing Hemoglobin A1c was good at 5.8, PSA 0.3, sodium is 131. Nephrology discussed keeping and eye on fluid intake with the slight hpyonatremia. Cholesterol 129, LDL 53, triglycerides 200, TSH 5.9. Continueson Synthroid. PLAN: Patient will complete testing for kidney transplant. He will also follow up with Pulmonology. Will wait for further recommendations. E4. Angélica Granger P.A.-C. CT CT Job ID: [id number] documented in this encounter Plan of Treatment Upcoming Encounters Date Type Specialty Care Team Description 04/24/2022 Appointment Laboratory Medicine Angélica Granger P.A.-C. [address] [place] [phone] 04/25/2022 Office Visit Otorhinolaryngology Dex Matta APRN CDemetriusNJuan Miguel, M.S.N. [address] [place] [phone] 05/08/2022 Appointment Laboratory Medicine Angélica Granger P.A.-C. [address] [place] [phone] 05/08/2022 Clinical Admitting/Central Communication Scheduling 05/10/2022 Appointment Radiology Jeremie Rose M.D. [address] [place] [phone] 05/10/2022 Comprehensive Visit Orthopedic Surgery Warner Graves M.D. [address] [place] [phone] 05/22/2022 Appointment Laboratory Medicine Angélica Granger P.A.-C. [address] [place] [phone] 06/05/2022 Appointment Laboratory Medicine Angélica Granger P.A.-C. [address] [place] [phone] 06/19/2022 Appointment Laboratory Medicine Angélica Granger P.A.-C. [address] [place] [phone] 07/03/2022 Appointment Laboratory Medicine Angélica Granger P.A.-C. [address] [place] [phone] 07/17/2022 Appointment Laboratory Medicine Angélica Granger P.A.-C. [address] [place] [phone] 07/31/2022 Appointment Laboratory Medicine Angélica Granger P.A.-C. [address] [place] [phone] 08/14/2022 Appointment Laboratory Medicine Angélica Granger P.A.-C. [address] [place] [phone] 08/28/2022 Appointment Laboratory Medicine Angélica Granger P.A.-C. [address] [place] [phone] documented as of this encounter Visit Diagnoses Diagnosis Transplant Liver (HCC) Medication Therapy Ironer Hand Not Anticoa gulant Cirrhosis Cryptogenic (HCC) Screening Examination Prostate Cancer Screening Examination Skin Cancer documented in this encounter Additional Health Concerns Assessment Noted Time PHQ-9 Depression Total Score: 4 11/28/2020 10:17 AM CD T documented as of this encounter Care Teams Construction Rep Relationship Specialty Start Date End Date Elsewhere, Pcp PCP - General Family Medicine 07/29/17 [facility] - Laboratory Medicine 04/12/[address] [phone] documented as of this encounter
--- OUTSIDE RECORDS SUMMARY | 2022-04-13 12:18 | XMS_ITS | Encounter Summary ---
:1955 Author Organization [facility] Address [address] [place] [address] Care Team Providers Name Role Phone Elsewhere, Pcp Primary Care Provider Unavailable Reason for Referral Outpatient (Routine) - Closed Specialty Diagnoses / Procedures Referred By Contact Refer red To Contact Nephrology and Ellen Rangel [facility] Hypertension [address] [place] [address] Referral ID Status Reason Start Date Expiration Date Visits Requ ested Visits Authorized [id number] Closed 11/27/2020 11/27/2021 1 1 Outpatient (Routine) - Closed Specialty Diagnoses / Procedures Referred By Contact Refer red To Contact Pulmonary Medicine Diagnoses Bronchitis Chronic (HCC) Ellen Rangel [facility] [address] [place] [address] Referral ID Status Reason Start Date Expiration Date Visits V isits Requested Authorized [id number] Closed Specialty 11/27/2020 11/27/2021 1 1 Services Required Scheduling Instructions Prefer to see Dr. Aaron. She saw him mayte aguilar. Reason for Visit Appointment Request (Routine) - Closed Specialty Diagnoses / Procedures Referred By Contact Refer red To Contact Transplant Diagnoses Failure Renal Referral ID Status Reason Start Date Expiration Date Visits Requ ested Visits Authorized [id number] Closed 09/01/2020 09/01/2021 2 1 Encounter Details Date Type Department Care Team Description 11/27/2020 Office Visit [place] [place], Pretr ansplant Recipient Evaluation Exam (Primary Dx); [facility] Chronic Kidney Disease Stage 4 Glomer[place] r Filtration Rate 15-29 (HCC); Transplantation and [address] Bronchitis Chronic (HCC); Clinical Regeneration in [place], [place]; [place], [place] [address] Abnormal Computed Tomography Chest; [address] [phone] Bipolar I Depressed Partial Remission (HCC); [place] [address] (Work) Transplant Liver (HCC); [phone] COVID-19 Infect ion (Fax) Social History Tobacco Use Types Packs/Day Years [...] Date Recorded Male 05/16/2020 4:27 PM [employer] documented as of this encounter Last Filed Vital Signs Vital Sign Reading Time Taken Comments Blood Pressure 135/66 11/27/2020 10:50 AM CDT Pulse 77 11/27/2020 10:50 AM CDT Temperature - - Respiratory Rate - - Oxygen Saturation - - Inhaled Oxygen Concentration - - Weight 76.4 kg (168 lb 6.9 oz) 11/27/2020 10:21 AM CDT Height 175.2 cm (5' 8.98) 11/27/2020 10:21 AM CDT Body Mass Index 24.89 11/27/2020 10:21 AM CDT documented in this encounter H&P Notes Ellen Rangel M.D. - 11/27/2020 10:30 AM CDT CHIEF COMPLAINT and PURPOSE of VISIT Annual wait list re-evaluation. HISTORY OF PRESENT ILLNESS Mr. Singh is a pleasant 65 y.o. male is here for an annual wait list re-evaluation. He was initially evaluated by Dr. Bowman in March [address] Mohr for wait-list follow-up in February 2019. 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 He got kidney biopsy 08/2017 due to proteinuria and hematuria with dysmorphic RBC showing focal segmental sclerosis with some collapsing features. The finding of collapsing feature was thought to be due to calcineurin inhibitor. He also has significant arteriosclerosis and arteriolar hyalinosis, [id number]. Interstitial fibrosis with tubular atrophy affectsapproximately 30-40% of the sample cortex. The patient has been followed in fellow clinic for his CKD by Dr. Bailey. However, his Cr has been increasing from baseline around 2.6-2.8 to 3.2 -3.4 in 05/12 and since June 2020, Cr further increased to 3.5-3.8 with eGFR now in the range of 15-16 ml/min. Patient has been on a waiting list since 04/07/18 but has been placed on TI due to good kidney function (eGFR > 20 ml/min). He was recently admitted at [facility] between 11/12 to 11/13/2020 for COVID-19 bronchitis. He presented with worsening fevers, fatigue, nausea and cough. During the admission, his hemoglobin has dropped from 8.9-7.7 with no signs of active bleeding. No blood was given. Repeat hemoglobin today has improved to 8.9. Regarding cardiac history, Dobutamine stress echo in 2018 was satisfactory with 61% EF at rest, 70% at stress. There were no regional wall motion abnormalities. Repeat dobutamine stress test is pending. Regarding pulmonary issue, patient has been having chronic intermittent cough and progressive short of breath for several years. He has been followed by Dr. Aaron. She last saw him on 09/01/20. It wasnoted that he has mild obstruction on spirometry and no significant bronchodilator response though some improvement in FVC noted. CT chest showed improvement in bibasilar consolidation with persistent mucus plugging and bronchial thickening. Sputum cultured showed Serratia, hence he was given Bactrim for 7 days. Per patient it did not seem to help that much. However, the cough has been getting worse since Covid 19. He has been improving some especially N/V and appetite but still has chronic productive cough. Patient never required oxygen. However, he reports having significant short of breath afterwalking about 100 ft. He denies any lower extremity edema, orthopnea PND. Interestingly, the cough is getting worse during the day but not during the night. He has esophageal manometry done in October 2020which was negative for GERD. 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 The most recent surgery was in September 2020. The patient will see Dermatology on 11/30/2020. The patient is single. 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 He lives alone and independent. Does not have any potential living donor yet. But he may reach out to his sister to post information on Facebook. He does not smoke or drink. Health maintenance: 1. Colonoscopy was normal August 2017. 2. PSA normal on 11/27/20. The following portions of the patient's history were reviewed and updated as appropriate: allergies,current medications, family history, medical history, social history, surgical history and problem list. Past Medical History: Diagnosis Date ??? Blood [...] Unspecified Body Region many in the past Past Surgical History: Procedure Laterality Date ??? [...] Never Smoker ??? Smokeless tobacco: Never Used Substance and Sexual Activity ??? Alcohol use: [...] and Family: Once a week ??? Attends Jainism Services: More than 4 times per year ??? Active Member of Clubs or Organizations: Yes ??? Attends Club or Organization Meetings: 1 to 4 times per year ??? Marital Status: Never Intimate Partner Violence: ??? Fear of Current or Ex-Partner: ??? Emotionally Abused: ??? Physically Abused: ??? Sexually Abused: Family History Problem Relation Age of Onset ??? Coronary artery disease Mother ??? Heart attack Mother ??? Heart disease Mother ??? Hypertension Mother ??? Heart attack Father ??? Heart disease Father ??? Skin cancer Father ??? Prostate cancer Father ??? Coronary artery disease Father Current Outpatient Medications: ??? acetaminophen (TYLENOL) 500 mg tablet, Take 1 tablet by mouth every 6 (six) hours as needed. Pain. No more than 2000 mg per day. , Disp: , Rfl: ??? albuterol (ACCUNEB) 2.5 mg /3 mL nebulizer solution, Inhale 3 mL (2.5 mg total) by nebulization 2 (two) times a day. (Patient taking differently: Inhale 2.5 mg by nebulization every 8 (eight) hoursas needed for shortness of breath. ), Disp: 540 mL, Rfl: 0 ??? [...] daily., Disp: 120 mL, Rfl: 6 ??? budesonide (PULMICORT) 0.5 mg/2 mL nebulizer solution, Add 1 respule to 8 ounces saline and irrigate each side of nose twice daily as directed., Disp: 360 mL, Rfl: 3 ??? calcium carb/magnesium oxid/D3 (CALCIUM MAGNESIUM + D ORAL), Take 2 tablets by mouth 2 (two) times a day. Total of 700 mg of calcium, 350 mg of magnesium, and 400 IU of vitamin D, Disp: , Rfl: ??? coenzyme Q10 (CO Q-10) 200 mg capsule, Take 1 capsule by mouth daily. , Disp: , Rfl: ??? doxazosin (CARDURA) 4 mg tablet, Take [...] ??? levothyroxine (SYNTHROID, LEVOTHROID) 25 mcg tablet, TAKE 1 TABLET BY MOUTH EVERY MORNING 30 MINUTES BEFORE BREAKFAST, Disp: 90 tablet, Rfl: 3 ??? loratadine [...] daily., Disp: 270 tablet, Rfl: 3 ??? predniSONE (DELTASONE) 5 mg tablet, Take 1 tablet (5 mg total) by mouth daily., Disp: 90 tablet,Rfl: 3 ??? tacrolimus (PROGRAF) 0.5 mg capsule, Take 2 capsules (1 mg total) by mouth 2 (two) times a day.,Disp: 360 capsule, Rfl: 3 ??? torsemide (DEMADEX) 10 mg tablet, Take 3 tablets (30 mg total) by mouth daily., Disp: 270 tablet, Rfl: 3 REVIEW OF SYSTEMS Constitutional: Positive for fatigue. ENT: Positive for sinus congestion. Respiratory: Positive for coughing up mucus (phlegm) and dyspnea. Cardiovascular: Positive for swelling in the legs or feet. Genitourinary: Positive for frequent urination. Hematologic: Positive for bruises or bleeds easily. Musculoskeletal: Positive for arthralgias, back pain, pain or stiffness in the joints and joint swelling. Neurological: Positive for light-headedness and headaches. The following systems were negative: Skin, Eyes, GI, Psych PHYSICAL EXAM BP 135/66 Pulse 77 Ht 175.2 cm Wt 76.4 kg BMI 24.89 kg/m?? Constitutional: Oriented to person, place, and time. Appears well-developed and well-nourished. Verypleasant. Head: Normocephalic and atraumatic. Mouth/Throat: Oropharynx is clear and moist. Eyes: Conjunctivae and EOM are normal. Pupils are equal, round, and reactive to light. Neck: Neck supple. Cardiovascular: Normal rate, regular rhythm and normal heart sounds. Exhibits no edema. Exam revealsno gallop and no friction rub. No murmur heard. Pulmonary/Chest: Right lung shows crackles and rhonchi. Abdominal: Soft. Bowel sounds are normal. Exhibits no distension and no mass. There is no tenderness. There is no rebound and no guarding. Well healed surgical scar. Neurological: Alert and oriented to person, place, and time. Skin: Skin is warm and dry. No rash noted. No erythema. Psychiatric: Has a normal mood and affect. Behavior and judgment are normal. Labs: 11/27/2020: Hemoglobin 8.9, white blood cell 4, platelet 228 11/27/2020: Sodium 131, potassium 3.9, chloride 94, bicarbonate 4, creatinine 4.03, BUN 63, total calcium 8.5, magnesium 2.9, albumin 4.1, uric acid 8.6, AST 22, ALT 21, TSH 5.9, PTH 64, PSA 0.37 11/27/2020: Troponin 34, total cholesterol 129, LDL 53, TG 200, hemoglobin A1c 5.8 11/27/2020: UA showed hemoglobin trace, predicted 24 hour urine protein 2.4 g 11/27/2020: EKG IMPRESSION: Sinus bradycardia Otherwise normal ECG When compared with ECG of 12-NOV-2020 19:37, No significant change was found 11/27/2020: Chest x-ray No change from 11/12/2020. Pulmonary hyperinflation. Diffuse central bronchial wall thickening. Very mild scarring in the caudal bilateral lungs. Aortic and coronary artery calcification. Retroperitoneal vascular stent in the upper abdomen. Degenerative changes of the skeleton. Chest otherwise negative. ASSESSMENT / PLAN # Pretransplant Recipient Evaluation Exam I think the patient still remains a good candidate for kidney transplant. He will proceed with the remaining tests. Patient recently got COVID-19 bronchitis and still has some cough. He has been havingchronic cough for several years and has been followed by Dr. Aaron. We will have him see Dr. Aaron In a month to make sure that things are ok. We do not see any barrier at this time. However, he has not have any living donor yet so we discussed typical waiting time which in his case, blood group O+, may take up to nearly 6 years. He has been on the list 2.7 years already. # Anemia secondary to iron deficiency anemia and CKD His hemoglobin during admission in October was 7.7 but spontaneously improved to 8.9 this time. The patient also feels tired and which could be contributed from anemia. He has iron studies checked when he was admitted which show transferrin saturation of 18% and ferritin of 200. We will give him 1 dose ofFeraheme at 510 mg IV today. If this hemoglobin does not improve, he may be needed to start JORGE L. However, we will defer this to his CKD clinic. # Recent COVID-19 infection # S/p 2 doses of Moderna vaccine in August 2019 # Chronic cough with PFT showing mild obstruction Chronic cough was worse when he had COVID-19 but it seem somewhat better afterwards. However the patient still has ongoing cough. Luckily, the patient does not need any oxygen supplement this time. We will have him see Dr. Aaron in a month. 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 226 cm/sec His blood pressure is excellent today. However, his kidney function has worsened with creatinine of 4.03 today. The patient feels fatigue and lack of energy which may be explained by uremia but he doesnot have any asterixis on exam. He used to be followed by Dr. Bailey but he will graduate so we refer him to CKD enroll clinic. I think he is near near to start dialysis perhaps in 1 year so it would be better to start access creation. Hopefully, he can see someone in the CKD clinic this week while he is here. # Bipolar I Disorder This has been quiescent and he is on medication. # Immunosuppressed State # Status post orthotopic liver transplant in 1998 and 2012 for autoimmune hepatitis, 1st graft failed due to late onset hepatic artery thrombosis and ischemic cholangiopathy. Continues immunosuppression for his liver transplant. # Obstructive uropathy He continues on alpha blockade. Doxazosin 4 mg daily. #Health maintenance: Colonoscopy was normal August 2017. PSA normal on 11/27/20. Transplant Evaluation Summary: 1. Cause of Renal [...] 80% 12. EPTS: 66%% 13. Cardiopulmonary evaluation: Pending dobutamine stress test. The patient has PFT done in September 10showing mild obstruction. We will have him see pulmonology in 1 month. 14. Troponin: 34 15. 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 Follow-up by Dermatology. 16. [place] renal imaging if on dialysis >3 years: pending 17. Health maintenance: Colonoscopy up to date, PSA is normal. 18. History of serious infections: Recent COVID infection in 11/13/2020. Does not require any oxygen. He received monoclonal antibodies and 1 dose of dexamethasone. 19. Urinary bladder dysfunction: yes; he has been on doxazosin 20. Hematology/coagulation issues: Anemia secondary to iron deficiency anemia and CKD. 21. Psychosocial: PACT: pending / SIPAT: pending / Other Issues: Bipolar disorder. Stable. 22. Surgical Issues: Prior to liver transplantation. 23. Peripheral Vascular Disease?: No 24. Other Medical Issues: As mentioned above 25. Pending issues: Cardiac evaluation, follow-up with Pulmonary, anemia management 26. Exhausted dialysis access: No INFORMED CONSENT: Information regarding evaluation process and the national and center-specific outcomes for the release date of December 2018 [facility] center-specific report, including the transplant center's observed and expected one-year patient and graft survival, national one-year patient and graft survival, as well as the risks, benefits, and alternatives to the evaluation were provided to the patient. Questions regarding the evaluation process were answered. Mr. Singh has agreed to proceed with the transplant evaluation and has signed the consent form. The witnessed and signed consent form has been electronically entered into the patient's medical record. This was discussed with Dr. Scott M.D. Ellen Rangel M.D. Edited by: Sherron Steel, Documentation Services 12/18/20 12:29 PM CDT Akin Chavez M.D. - 11/27/2020 10:30 AM CDT I saw and evaluated Mr. Singh with Dr. Ellen Rangel M.D.. I confirmed the garcia elements of thehistory and physical exam. I agree with the findings, assessment and plan of care as outlined in thenote. The following portions of the patient's history were reviewed and updated as appropriate: Comprehensive review of systems, allergies, current medications, family history, medical history, social history, surgical history, and problem list. Patient is currently listed inactive on the donor kidney transplant list since March of 2018. He has chronic kidney disease stage 4-5 in setting of previous remote to liver transplant the 1st one was in 1998 and the 2nd liver transplant was in May of 2013. He is currently on triple immunosuppression including tacrolimus, prednisone and MMF. He also has history of bipolar disorder thathas been stable. In 2017 the patient underwent a [place] kidney biopsy in setting of proteinuria and microscopic hematuria in the biopsy showed focal segmental sclerosis with some collapsing features thought to be due to the use of calcineurin inhibitors. On that biopsy had also some chronic changes with about 30 to 40% IFTA. Unfortunately his kidney function deteriorated after he was recently diagnosed with COVID-19 bronchitis as he had brief admission to the hospital at [facility] on 11/12/2020. At that time he also had worsening anemia. The patient denies any background of heart disease. He has chronic cough for which she was followed by Pulmonary colleagues on regular basis and hewas last seen in August of 2020. The patient continues to have the cough he does not feel it is worsened than before. He has been anemic and we discussed referring him to the CKD Clinic otherwise I feel that he is a fair candidate to continue to be listed for kidney transplantation pending his re-evaluation. He has low iron studies recently and because of the anemia will give him a dose of IV Feraheme and will need to be enrolled inthe CKD clinic for closer follow-up. We will review his kidney transplant evaluation as he has several pending evaluations to be done during this visit. Would like him also to follow-up with Pulmonary given also the recent COVID bronchitis despite vaccination. documented in this encounter Plan of Treatment Upcoming Encounters Date Type Specialty Care Team Description 04/24/2022 Appointment Laboratory Medicine Angélica Granger P.A.-C. [address] [place] [phone] 04/25/2022 Office Visit Otorhinolaryngology Dex Matta APRN, C.N.P., M.S.N. [address] [place] [phone] 05/08/2022 Appointment Laboratory Medicine Angélica Granger P.A.-CDemetrius [address] [place] [phone] 05/08/2022 Clinical Admitting/Central Communication Scheduling 05/10/2022 Appointment Radiology Jeremie Rose M.D. [address] [place] [phone] 05/10/2022 Comprehensive Visit Orthopedic Surgery Warner Graves M.D. [address] [place] [phone] 05/22/2022 Appointment Laboratory Medicine Angélica Granger P.A.-CDemetrius [address] [place] [phone] 06/05/2022 Appointment Laboratory Medicine Angélica Granger P.A.-CDemetrius [address] [place] [phone] 06/19/2022 Appointment Laboratory Medicine Angélica Granger P.A.-CDemetrius [address] [place] [phone] 07/03/2022 Appointment Laboratory Medicine Angélica Granger P.A.-C. [address] [place] [phone] 07/17/2022 Appointment Laboratory Medicine Angélica Granger P.A.-C. [address] [place] [phone] 07/31/2022 Appointment Laboratory Medicine Angélica Granger P.A.-C. [address] [place] [phone] 08/14/2022 Appointment Laboratory Medicine Angélica Granger P.A.-C. [address] [place] [phone] 08/28/2022 Appointment Laboratory Medicine Angélica Granger P.A.-C. [address] [place] [phone] Scheduled Referrals Name Type Priority Associated Order Schedule Diagnoses Pulmonary Medicine - Outpatient Referral Routine Bronchitis Ch ronic Expected: General consult ([facility]) 11/27/2020, (clinic) Expires: 12/20/2020 Nephrology nurse Outpatient Referral Routine Expe cted: visit (clinic) 11/27/2020 (Approximate), Expires: 11/28/2023 documented as of this encounter Visit Diagnoses Diagnosis Pretransplant Recipient Evaluation Exam - Primary Chronic Kidney Disease Stage 4 Glomerula r Filtration Rate 15-29 (HCC) Bronchitis Chronic (HCC) Anemia Abnormal Computed Tomography Chest Bipolar I Depressed Partial Remission (H CC) Transplant Liver (HCC) COVID-19 Infection documented in this encounter Additional Health Concerns Assessment Noted Time PHQ-9 Depression Total Score: 3 11/22/2019 7:34 AM CDT documented as of this encounter Care Teams Flight Attendant Ramp Relationship Specialty Start Date End Date Elsewhere, Pcp PCP - General Family Medicine 07/29/17 [facility] - Laboratory Medicine 04/12/20 [place] [phone] documented as of this encounter
--- OUTSIDE RECORDS SUMMARY | 2022-04-13 12:18 | XMS_ITS | Encounter Summary ---
:1955 Author Organization [facility] Address [address] [place] [address] Care Team Providers Name Role Phone Elsewhere, Pcp Primary Care Provider Unavailable Reason for Visit Reason Onset Date Comments Complex Care Coordination 11/20/2020October Billing Encounter Details Date Type Department Care Team Description 11/20/2020 Remote Monitoring Remote Patient Markos Blanca Tubbs Complex Care Monitoring [address] [place] [address] Coordination (October [facility] [place], [place] Billing ) 200 [facility] [phone] [place], [place] [phone] (Work) Social History Tobacco Use Types Packs/Day Years [...] Date Recorded 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 [address] [place] [address] [phone] 05/08/2022 Appointment Laboratory Medicine Angélica Granger P.ADemetrius-CDemetrius [address] [place] [address] [phone] 05/08/2022 Clinical Admitting/Central Communication Scheduling 05/10/2022 Appointment Radiology Jeremie Rose M.D. [address] [place] [phone] 05/10/2022 Comprehensive Visit Orthopedic Surgery Warner Graves M.D. [address] [place] [address] [phone] 05/22/2022 Appointment Laboratory Medicine Angélica Granger P.A.-CDemetrius [address] [place] [phone] 06/05/2022 Appointment Laboratory Medicine Angélica Granger P.A.-C. [address] [place] [phone] 06/19/2022 Appointment Laboratory Medicine Angélica Granger P.A.-C. [address] [place] [phone] 07/03/2022 Appointment Laboratory Medicine Angélica Granger P.A.-C. [address] [place] [address] [phone] 07/17/2022 Appointment Laboratory Medicine Angélica Granger P.A.-C. [address] [place] [phone] 07/31/2022 Appointment Laboratory Medicine Angélica Granger P.A.-C. [address] [place] [phone] 08/14/2022 Appointment Laboratory Medicine Angélica Granger P.A.-C. [address] [place] [phone] 08/28/2022 Appointment Laboratory Medicine Angélica Granger P.A.-C. [address] [place] [phone] documented as of this encounter Visit Diagnoses Diagnosis COVID-19 Infection documented in this encounter Additional Health Concerns Assessment Noted Time PHQ-9 Depression Total Score: 3 11/22/2019 7:34 AM CDT documented as of this encounter Care Teams Pattern Scratcher Relationship Specialty Start Date End Date Elsewhere, Pcp PCP - General Family Medicine 07/29/17 [facility] - Laboratory Medicine 04/12/[address] [address] documented as of this encounter
--- OUTSIDE RECORDS SUMMARY | 2022-04-13 12:19 | XMS_ITS | Encounter Summary ---
:[address] 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 [address] [place] [address] [phone] 05/08/2022 Appointment Laboratory Medicine Angélica Granger P.A.-CDemetrius [address] [place] [address] [phone] 05/08/2022 Clinical Admitting/Central Communication Scheduling 05/10/2022 Appointment Radiology Jeremie Rose M.D. [address] [place] [phone] 05/10/2022 Comprehensive Visit Orthopedic Surgery Warner Graves M.D. [address] [place] [address] [phone] 05/22/2022 Appointment Laboratory Medicine Angélica Granger P.A.-CDemetrius [address] [place] [phone] 06/05/2022 Appointment Laboratory Medicine Angélica Granger P.A.-C. [address] [place] [phone] 06/19/2022 Appointment Laboratory Medicine Angélica Granger P.A.-C. [address] [place] [phone] 07/03/2022 Appointment Laboratory Medicine Angélica Granger P.A.-C. [address] [place] [phone] 07/17/2022 Appointment Laboratory Medicine Angélica Granger P.A.-C. [address] [place] [phone] 07/31/2022 Appointment Laboratory Medicine Angélica Granger P.A.-C. [address] [place] [phone] 08/14/2022 Appointment Laboratory Medicine Angélica Granger P.A.-C. [address] [place] [phone] 08/28/2022 Appointment Laboratory Medicine Angélica Granger P.A.-C. [address] [place] [phone] documented as of this encounter Visit Diagnoses Not on filedocumented in this encounter Additional Health Concerns Infection Onset Date Last Indicated Resolved Time COVID19 10/30/2020 10/30/2020 11/19/2020 4:45 AM CDT Assessment Noted Time PHQ-9 Depression Total Score: 3 11/22/2019 7:34 AM CDT documented as of this encounter Care Teams Roofing Supervisor Relationship Specialty Start Date End Date Elsewhere, Pcp PCP - General Family Medicine 07/29/17 [facility] - Laboratory Medicine 04/12/[address] [address] documented as of this encounter
--- OUTSIDE RECORDS SUMMARY | 2022-04-13 12:19 | XMS_ITS | Encounter Summary ---
:1955 Author Organization [facility] Address [address] [place] [address] Care Team Providers Name Role Phone Elsewhere, Pcp Primary Care Provider Unavailable Reason for Visit Reason Onset Date Comments Welcome Call 11/01/2020 No Welcome Call done -patient read portal message on 11/01, equipment orde red before1:00pm today and will be delivered on 11/02. Patient Education 11/01/2020 Complex Care/COVID19 , Welcome Letter/Terms of Service sent 11/01. 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 Where appropriate and as indicated, these devices meet FDA Class II certifications as medical devices: ? ? Blood Pressure Monitor: A[employer]Deep Driver Medical Blood Pressure Monitor model UX-437XTA-[id number] (FDA B493316) or Gautam Sparks Blood Pressure Monitor model H-SU565IRL (FDA G072839) ? ? Weight Scale: MyPay-Me Weight Scale model XL-700, Gautam Jaylyn Weight Scale model 085106, or A[employer]D Medical Weight Scale model VU-146WRJ-Wf ??? Pulse Oximeter: Nonin Pulse Oximeter model 3230 (FDA N656748) or Nonin Pulse Oximeter model 9560(FDA B412032) ? ? Thermometer: A&Deep Driver Medical Thermometer model DT-105 or [facility] Basal Thermometer model 08-365 ??? Continuous Monitor: Everion V1 (FDA [id number]) documented in this encounter Plan of Treatment Upcoming Encounters Date Type Specialty Care Team Description 04/24/2022 Appointment Laboratory Medicine Angélica Granger P.A.-C. [address] [place] [phone] 04/25/2022 Office Visit Otorhinolaryngology Dex Matta APRN, C.N.P., M.S.N. [address] [place] [address] [phone] 05/08/2022 Appointment Laboratory Medicine Angélica Granger P.A.-C. [address] [place] [address] [phone] 05/08/2022 Clinical Admitting/Central Communication Scheduling 05/10/2022 Appointment Radiology Jeremie Rose M.D. [address] [place] [phone] 05/10/2022 Comprehensive Visit Orthopedic Surgery Warner Graves M.D. [address] [place] [phone] 05/22/2022 Appointment Laboratory Medicine Angélica Granger P.A.-C. [address] [place] [address] [phone] 06/05/2022 Appointment Laboratory Medicine Angélica Granger P.A.-C. [address] [place] [phone] 06/19/2022 Appointment Laboratory Medicine Angélica Granger P.A.-C. [address] [place] [phone] 07/03/2022 Appointment Laboratory Medicine Angélica Granger P.A.-C. [address] [place] [phone] 07/17/2022 Appointment Laboratory Medicine Angélica Granger P.A.-C. [address] [place] [phone] 07/31/2022 Appointment Laboratory Medicine Angélica Granger P.A.-C. [address] [place] [phone] 08/14/2022 Appointment Laboratory Medicine Angélica Granger P.A.-C. [address] [place] [phone] 08/28/2022 Appointment Laboratory Medicine Angélica Granger P.A.-C. [address] [place] [phone] documented as of this encounter Visit Diagnoses Not on filedocumented in this encounter Additional Health Concerns Infection Onset Date Last Indicated Resolved Time COVID19 10/30/2020 10/30/2020 11/19/2020 4:45 AM CDT Assessment Noted Time PHQ-9 Depression Total Score: 3 11/22/2019 7:34 AM CDT documented as of this encounter Care Teams Sandblaster Paint Sprayer Relationship Specialty Start Date End Date Elsewhere, Pcp PCP - General Family Medicine 07/29/17 [facility] - Laboratory Medicine 04/12/[address] [address] documented as of this encounter
--- OUTSIDE RECORDS SUMMARY | 2022-04-13 12:19 | XMS_ITS | Encounter Summary ---
:1955 Author Organization [facility] Address [address] [place] [address] Care Team Providers Name Role Phone Elsewhere, Pcp Primary Care Provider Unavailable Reason for Visit Reason Onset Date Comments COVID-19 Remote Patient Monitoring 11/06/2020 Symptom Assessment 11/06/2020 Encounter Details Date Type Department Care Team Description 11/06/2020 Remote Monitoring Remote Patient Marilin Smith D-19 Remote Monitoring L, R.N. 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 - 11/06/2020 5:04 PM CDT Remote Patient Monitoring - RN Symptomology Call Primary reason for today's contact: COVID-19 Symptom Assessment for report of worsening symptoms. Date of positive COVID-19 test result: 10/30/2020 Date COVID-19 symptoms began: 10/30/2020 Symptom Assessment: Home oxygen: No Room air SpO2 result: 96% Today the patient reports the following symptoms: Dyspnea: Worsening. Patient reports shortness of breath with exertion. Cough: Worsening. Patient reports productive cough:Yes, with yellow sputum, Chest Pain or chest tightness: Not present Fever (>100.4oF or subjective fever): Not present Patient report of date of last fever reducing medication: none in 4-5 days Chills: Not present Sweats: Not present Diarrhea: Improving Vomiting: Not present Dizzy or lightheaded: Unchanged Patient reports the following additional symptoms: increased mucous and thicker/yellow mucous. Patient Education: Patient and/or caregiver was instructed on: ?? Self-care plan - ? Start deep breathing exercises with a goal of ten times per hour. ?? Increase fluid intake to at least 64-80 ounces per day. You may add electrolyte replacement drinks (such as Gatorade, POWERade, or Pedialyte) to help with loss of fluid from fever or GI symptoms. Ifyou are diabetic, you should drink sugar free fluids. ?? Red flag symptoms dicussed. Patient will seek emergency care if shortness of breath worsens and does not go away with rest, chest pain worsens and/or does not go away with rest, or if she feels as if he could collapse if he sits up of stands. ?? . Patient/caregiver able to teach back ?? Keep monitoring symptoms The following references were used: Nursing judgement Plan of Care/Next Steps: Endpoint recommendation: Self-Isolation, quarantine at home and Home Care Patient is currently using supportive care measures of increasing fluid intake and rest. Caller agreeable to plan of care: Yes Patient agrees to continue daily vital sign monitoring and follow up call scheduled. Patient agreed to call Remote Patient Monitoring nurse with any questions or concerns in the interim. documented in this encounter Plan of Treatment Upcoming Encounters Date Type Specialty Care Team Description 04/24/2022 Appointment Laboratory Medicine Angélica Granger, P.A.-CDemetrius [address] [place] [phone] 04/25/2022 Office Visit Otorhinolaryngology Dex Matta, RAMONA, C.N.P., M.S.N. [address] [place] [phone] 05/08/2022 Appointment Laboratory Medicine Angélica Granger, Evan.A.-CDemetrius [address] [place] [phone] 05/08/2022 Clinical Admitting/Central Communication Scheduling 05/10/2022 Appointment Radiology Jeremie Rose M.D. [address] [place] [phone] 05/10/2022 Comprehensive Visit Orthopedic Surgery Warner Graves M.D. [address] [place] [phone] 05/22/2022 Appointment Laboratory Medicine Angélica Granger P.A.-C. [address] [place] [phone] 06/05/2022 Appointment Laboratory Medicine Angélica Granger P.A.-C. [address] [place] [phone] 06/19/2022 Appointment Laboratory Medicine Angélica Granger P.A.-C. [address] [place] [phone] 07/03/2022 Appointment Laboratory Medicine Angélica Granger P.A.-C. [address] [place] [phone] 07/17/2022 Appointment Laboratory Medicine Angélica Granger P.A.-C. [address] [place] [phone] 07/31/2022 Appointment Laboratory Medicine nAgélica Granger P.A.-C. [address] [place] [phone] 08/14/2022 Appointment Laboratory Medicine Angélica Granger P.A.-C. [address] [place] [phone] 08/28/2022 Appointment Laboratory Medicine Angélica Granger P.A.-C. [address] [place] [phone] documented as of this encounter Visit Diagnoses Diagnosis COVID-19 Infection documented in this encounter Additional Health Concerns Infection Onset Date Last Indicated Resolved Time COVID19 10/30/2020 10/30/2020 11/19/2020 4:45 AM CDT Assessment Noted Time PHQ-9 Depression Total Score: 3 11/22/2019 7:34 AM CDT documented as of this encounter Care Teams Adhesive Sprayer Relationship Specialty Start Date End Date Elsewhere, Pcp PCP - General Family Medicine 07/29/17 [facility] - Laboratory Medicine 04/12/[address] [address] documented as of this encounter
--- OUTSIDE RECORDS SUMMARY | 2022-04-13 12:19 | XMS_ITS | Encounter Summary ---
:1955 Author Organization [facility] Address [address] [place] [address] Care Team Providers Name Role Phone Elsewhere, Pcp Primary Care Provider Unavailable Reason for Visit Reason Comments Med Refill Encounter Details Date Type Department Care Team Description 11/06[facility] Leonid Camejo M.D. 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 [address] [place] [phone] 04/25/2022 Office Visit Otorhinolaryngology Dex Matta APRN, C.N.P., M.S.N. [address] [place] [phone] 05/08/2022 Appointment Laboratory Medicine Angélica Granger, P.A.-C. [address] [place] [phone] 05/08/2022 Clinical Admitting/Central Communication Scheduling 05/10/2022 Appointment Radiology Jeremie Rose M.D. [address] [place] [phone] 05/10/2022 Comprehensive Visit Orthopedic Surgery Warner Graves M.D. [address] [place] [phone] 05/22/2022 Appointment Laboratory Medicine GunAngélica wilcox P.A.-C. [address] [place] [phone] 06/05/2022 Appointment Laboratory Medicine Angélica Granger P.A.-C. [address] [place] [phone] 06/19/2022 Appointment Laboratory Medicine Angélica Granger P.A.-C. [address] [place] [phone] 07/03/2022 Appointment Laboratory Medicine Angélica Granger P.A.-C. [address] [place] [phone] 07/17/2022 Appointment Laboratory Medicine Angélica Granger P.A.-C. [address] [place] [phone] 07/31/2022 Appointment Laboratory Medicine Angélica Granger P.A.-C. [address] [place] [phone] 08/14/2022 Appointment Laboratory Medicine Angélica Granger P.A.-C. [address] [place] [phone] 08/28/2022 Appointment Laboratory Medicine Angélica Granger P.A.-C. [address] [place] [phone] documented as of this encounter Visit Diagnoses Diagnosis Transplant Liver (HCC) documented in this encounter Additional Health Concerns Infection Onset Date Last Indicated Resolved Time COVID19 10/30/2020 10/30/2020 11/19/2020 4:45 AM CDT Assessment Noted Time PHQ-9 Depression Total Score: 3 11/22/2019 7:34 AM CDT documented as of this encounter Care Teams Dough Panner Relationship Specialty Start Date End Date Elsewhere, Pcp PCP - General Family Medicine 07/29/17 [facility] - Laboratory Medicine 04/12/[address] [address] documented as of this encounter
--- OUTSIDE RECORDS SUMMARY | 2022-04-13 12:19 | XMS_ITS | Encounter Summary ---
:1955 Author Organization [facility] Address [address] [place] [id number] Care Team Providers Name Role Phone Elsewhere, Pcp Primary Care Provider Unavailable Reason for Visit Reason Comments Shortness of Breath Encounter Details Date Type Department Care Team Description 11/12/2020 - Emergency [facility], Murtaza Kilgore M.D. [address] [place] [phone] Acute Bronchitis Due To COVID-19 (Primar y Dx); 11/13/2020 [facility], Perez Alexander M.D. [address] [place] [phone] Anemia; [facility], Asya Garcia M.D. [address] [place] [phone] Hyponatremia; Sixth Floor Shortness Of Breath; [address] [place] [address] Elevated D-[place] [phone] Social History Tobacco Use Types [...] 12/15/2021 organizations such as judaism groups, unions, fraRetention Education or athletic groups, or school groups? 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 - 11/13/2020 12:31 PM CDT DISCHARGE SUMMARY BRIEF OVERVIEW Hospital: [facility] Discharge Provider: Asya Garcia M.D. Primary Team: [facility] Medicine 7 ([facility]) Primary Care Providers: Elsewhere, Pcp (General) No address on file Primary Care Provider Phone Number: None Primary Care Provider Fax Number: None Other Providers: None Admission Date: 11/12/2020 Discharge Date: 11/13/2020 PRINCIPAL DIAGNOSIS Acute Bronchitis Due To COVID-19 SECONDARY DIAGNOSES Principal Problem: Acute Bronchitis Due To COVID-19 Active Problems: Anemia Shortness Of Breath Elevated D-Dimer Uncertain Significance Hyponatremia Resolved Problems: * No resolved hospital problems. * DISCHARGE DISPOSITION Home or Self Care [1] ACTIVE ISSUES REQUIRING FOLLOW UP None OUTPATIENT FOLLOW UP Scheduled Appointments 11/21/2020 2:00 PM RM MOTIL 01 [facility] 09 [facility] Gastroenterology and Hepatology 11/22/2020 1:30 PM RM MOTIL 01 RO[facility] 09 [facility] Gastroenterology and Hepatology 11/27/2020 7:00 AM LAB URINE CONTAINER RO[facility] Laboratory Medicine 11/27/2020 7:10 AM LAB BLOOD [facility] Laboratory Medicine 11/27/2020 7:30 AM US ROGO 03 RM 12 Radiology 11/27/2020 8:45 AM DX JAIME [address] Radiology 11/27/2020 9:20 AM ECG 01 [facility] [address] CVD Cardiovascular Disease 11/27/2020 10:30 AM Akin Chavez M.D. Transplant 11/27/2020 12:[address] JAIME ABD LOS 824 Radiology 11/27/2020 1:00 PM Kandace James P.A.-C. Dermatology For appointment details refer to your Patient Appointment Guide. TEST RESULTS PENDING AT DISCHARGE Pending Labs Order Current Status Bacteria / Rimma Culture, Blood In process DETAILS OF HOSPITAL STAY REASON FOR ADMISSION Hyponatremia Anemia Shortness Of Breath Elevated D-Dimer Uncertain Significance Acute Bronchitis Due To COVID-19 HOSPITAL COURSE Bruce Singh is a 65 y.o. male admitted for worsening fatigue and nausea in the setting of COVID positivity on PCR 10/30/2020 that was obtained prior to invasive procedure. He has been evaluated in the outpatient setting for subacute to chronic shortness of breath, cough, aspiration with postnasal drip, rhinitis, etc. He was told by the COVID task force to a come to the ER because he complainedof worsening fatigue and some nausea. He has junky lungs but is breathing comfortably on room air saturating 100% and is breathing comfortably. He did receive dexamethasone 10 mg in the ER. His chest x-ray looked pretty good and does not look like a severe COVID patient.?? He was admitted for management of following. 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 His risk factors for severe disease include age over 65, hypertension, chronic kidney disease, chronic lung disease, lymphopenia, elevated D-dimer, organ transplant, and chronic immunosuppression. His creatinine clearance is approximately 21 in the setting of CKD stage 4. Creatinine clearance less than 30 is a relative contraindication to the use of remdesivir. ?? Overall, he was admitted to monitor overnight and seen by transplant ID that they would not recommend any active intervention. He received respiratory therapy without any new oxygen need or worsening respiratory symptoms. He agreed to go home and monitor on the symptoms. In addition, his hemoglobin dropped from 8.9 -> 7.7 from admission though no signs of active bleeding anywhere. He will follow up with transplant team with sets of labs on 11/27/20 including CBC. ?? CONSULTS ORDERED DURING THIS ADMISSION IP CONSULT TO INFECTIOUS DISEASES IP CONSULT TO DIETITIAN CONDITION AT DISCHARGE stable Discharge instructions were provided to the patient and caregiver(s). documented in this encounter Discharge Instructions Discharge InstructionsEnedina Briscoe - 11/13/2020 6:48 AM CDT You were discharged from the [facility] Medicine 7 ([facility]) Service. Please identify this service name if you call with questions after hospitalization. documented in this encounter Medications at Time of Discharge Medication Sig Dispensed Refills Start Date End Date acetaminophen (TYLENOL) Take 1 tablet by 0 2012 500 mg tablet mouth every 6 (six) hours as needed for fever. Pain. No more than 2000 mg per day. aspirin 81 mg chewable Chew 81 mg daily. 0 2017 tablet coenzyme Q10 (CO Q-10) Take 1 capsule by 0 2017 200 mg capsule mouth daily. loratadine (CLARITIN) Take 10 mg by mouth 0 10 mg tablet at bedtime. montelukast (SINGULAIR) Take 10 mg by mouth 0 10 mg tablet at bedtime. amoxicillin (AMOXIL) Take 4 capsules by 0 018 500 mg capsule mouth as directed. Prior to dental procedures sodium chloride Inhale 4 mL by 720 [...] (HCC), daily. Medication Therapy Shelter Not Anticoagulant tacrolimus (PROGRAF) Take 2 capsules (1 360 capsule 3 202007/16/2021 0.5 mg mg total) by mouth 2 capsuleIndications: (two) times a day. Transplant Liver (HCC), Medication Therapy Director Of Convention Services Not Anticoagulant torsemide (DEMADEX) 10 Take 3 tablets (30 270 tablet 3 05/2202/22/2021 mg tablet mg total) by mouth daily. budesonide (PULMICORT) Add 1 respule to 8 360 mL 3 07/2111/29/2020 0.5 mg/2 mL nebulizer ounces saline and solution irrigate each side of nose twice daily as directed. cholecalciferol Take 1 capsule by 0 03/05/2013 (VITAMIN D3) 50 mcg mouth daily. (2,000 Unit) capsule sodium chloride USE 4 ML VIA 0 08/30/2020 021 (NEBUSAL) 3 % nebulizer NEBULIZER TWICE solution DAILY documented as of this encounter Progress Notes Asya Garcia M.D. - 11/13/2020 12:43 PM CDT I saw and evaluated Mr. Bruce Singh on rounds today with our medicine team, and I agree with the findings and plan as documented in today's progress note by Dr. Madhu Dutta, with the following comments: #1 Acute Bronchitis Due To COVID-19 Mr. Singh is feeling well and expressed feeling very eager to be dismissed as soon as possible when we met him on rounds this morning. Transplant ID evaluated Mr. Singh in e-consult and agreed that he did not warrant COVID directed therapy or steroids at this time. He is aware of symptoms for which he should call back and is alreadyconnected with the remote monitoring team. We discussed his incidental findings of a low hemoglobin - he states he is not having any signs of bleeding and prefers to have this followed up in the outpatient setting with the routine labs that are already ordered in early November. I saw and evaluated Mr. Bruce Singh today and provided counseling [id number] at bedside. I personally reviewed the discharge plan of care and coordinated with the team regarding the patient's hospital summary documentation and outpatient follow up. Please refer to Dr. Dutta's discharge summary note for additional details. It has been an honor to care for Bruce Singh and we wish Mr. Singh well. documented in this encounter H&P Notes Kevin Bradford M.D. - 11/12/2020 6:20 PM CDT [facility] INTERNAL MEDICINE - ADMISSION NOTE Location: [facility] ED [place] [address] ([facility]) Hospital Day: 0 Address: [address] [place] [phone] SUBJECTIVE HISTORY OF PRESENT ILLNESS: Bruce Singh is a 65 y.o. 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 Admitted for: COVID 19 infection with PCR positivity 10/30/2020 and worsening dyspnea and vomiting. He has been followed by outpatient pulmonology as well as ENT for number of months due to symptoms of subacute to chronic cough, dyspnea, aspiration, rhinitis, and postnasal drip. He was diagnosed withCOVID when he a PCR positive on 10/30/2020. He did have a Moderna COVID vaccine and 09/03/2020. He tells me that the COVID PCR that was positive was done prior to an invasive procedure. Even though he was directly asymptomatic, he does in hindsight tell me that he felt chilled with some low-grade temperature as high as 100.8?? in the days leading up to and after testing positive. He does notreport any known COVID positive contact. Since that test being positive, he has been doing okay at home but for the last 2-3 days he has noticed more fatigue primarily but also nausea with some vomiting. The vomiting is not associated with food, but he does notice some more pronounced gag reflex and he feels that he vomits after brushing his teeth. He does not feel particularly dehydrated. He does feel like he has lost his appetite. He thinks his sense of smell is still intact. His shortness of breath is basically at baseline. The cough has not worsened much either. Fatigue is the main thing that is changed. Pulmonology had given him several medications for bronchial hygiene, but they made him feel jittery and shaky, so he has not been taking those for the last few weeks. His outpatient evaluation is stillongoing and things like pH impedance and other [facility] He denies any chest pain, fevers, lightheadedness, dizziness, or syncope. A 12 point review of systems was performed and is negative except as outlined above. PAST MEDICAL HISTORY: Past Medical History: Diagnosis Date ??? Blood Transfusion No Diagnosis 2012 ??? Chronic Kidney Disease Stage 4 Glomerular Filtration Rate 15-29 (HCC) ??? Concussion Loss Of Consciousness Unspecified Duration Initial 2013 ??? Coronary Artery Disease (Unspecified) 2016 ??? Hepatitis Autoimmune (HCC) ??? Hyperlipidemia 2015 ??? Hypertension NOS 2015 ??? Other Complications Of Liver Transplant (HCC) ??? Other Injury Of Unspecified Body Region many in the past PAST SURGICAL HISTORY: Past Surgical History: Procedure Laterality [...] 09/03/2013 >Umbilical hernia repair. ??? VASECTOMY 1989 MEDICATIONS: Current Facility-Administered Medications: ??? NaCl 0.9 % bolus 500 mL, 500 mL, intravenous, Once, Alena Gu M.D., Last Rate: 500 mL/hr at11/12/20 1746, 500 mL at 11/12/20 174 Current Outpatient Medications: ??? acetaminophen (TYLENOL) 500 mg tablet, Take 1 tablet by mouth every 6 (six) hours as needed. Pain. No more than 2000 mg per day. , Disp: , Rfl: ??? albuterol (ACCUNEB) 2.5 mg /3 mL nebulizer solution, Inhale 3 mL (2.5 mg total) by nebulization 2 (two) times a day., Disp: 540 mL, Rfl: 0 ??? amoxicillin (AMOXIL) 500 mg capsule, Take 4 capsules by mouth as directed. Prior to dental procedures, Disp: , Rfl: 0 ??? aspirin (ASPIRIN CHILDRENS) 81 mg chewable tablet, Chew daily., Disp: , Rfl: ??? atorvastatin (LIPITOR) 10 [...] of vitamin D, Disp: , Rfl: ??? cholecalciferol (VITAMIN D3) 2,000 Unit tablet, Take 1 tablet by mouth daily., Disp: , Rfl: ??? coenzyme Q10 (CO Q-10) 200 mg capsule, Take 1 capsule by mouth daily. , Disp: , Rfl: ??? doxazosin (CARDURA) 4 mg tablet, Take 1 tablet (4 mg total) by mouth daily., Disp: 90 tablet, Rfl: 3 ??? fluticasone propionate (FLONASE) 50 mcg/actuation nasal spray, Administer 2 sprays into each nostril 2 (two) times a day., Disp: 64 g, Rfl: 11 ??? ipratropium (ATROVENT) 42 mcg (0.06 %) nasal spray, Administer 2 sprays into affected nostril(s)4 (four) times a day as needed for rhinitis. Maintenance , Disp: , Rfl: ??? lamoTRIgine (LaMICtal) 200 mg tablet, TAKE 1 TABLET BY MOUTH TWICE DAILY, Disp: 200 tablet, Rfl:3 ??? levothyroxine (SYNTHROID, LEVOTHROID) 25 mcg tablet, TAKE 1 TABLET BY MOUTH EVERY MORNING 30 MINUTES BEFORE BREAKFAST, Disp: 90 tablet, Rfl: 3 ??? loratadine (CLARITIN) 10 mg tablet, Take 10 mg by mouth daily., Disp: , Rfl: ??? montelukast (SINGULAIR) 10 mg tablet, Take 10 mg by mouth daily., Disp: , Rfl: ??? multivitamin tablet, Take [...] mouth daily., Disp: 90 tablet,Rfl: 3 ??? sodium chloride (NEBUSAL) 3 % nebulizer solution, Inhale 4 mL by nebulization 2 (two) times a day., Disp: 720 mL, Rfl: 0 ??? sulfamethoxazole-trimethoprim (BACTRIM DS) 800-160 mg per tablet, Take 1 tablet by mouth daily.,Disp: 7 tablet, Rfl: 0 ??? tacrolimus (PROGRAF) 0.5 mg capsule, Take 2 capsules (1 mg total) by mouth 2 (two) times a day.,Disp: 360 capsule, Rfl: 3 ??? torsemide (DEMADEX) 10 mg tablet, Take 3 tablets (30 mg total) by mouth daily., Disp: 270 tablet, Rfl: 3 ALLERGIES: Allergies Allergen Reactions ??? Cefixime Diarrhea ??? Ciprofloxacin Other (see comments) Tendon pain ??? Citalopram Other (see comments) michell ??? Erythromycin Base Other (see comments) Due to medications ??? Olanzapine Other (see comments) Joint pain ??? Quetiapine Edema Muscle pain and swelling SOCIAL HISTORY: Social History Tobacco Use Smoking Status Never Smoker Smokeless Tobacco Never Used FAMILY HISTORY: Family History Problem Relation Age of Onset ??? Coronary artery disease Mother ??? Heart attack Mother ??? Heart disease Mother ??? Hypertension Mother ??? Heart attack Father ??? Heart disease Father ??? Skin cancer Father ??? Prostate cancer Father ??? Coronary artery disease Father OBJECTIVE PHYSICAL EXAM: Temperature: [37 ??C] 37 ??C Resp Rate: [17-20] 17 Blood Pressure: (136-146)/(72-84) 146/84 SpO2: [96 %-100 %] 99 % Height: [179.2 cm] 179.2 cm Weight: [78.4 kg] 78.4 kg BSA (Calculated - sq m): [1.97 sq meters] 1.97 sq meters BMI (Calculated): [24.4 kg/m??] 24.4 kg/m?? Pulse Rate: [60-71] 66 General: Well-developed, well-nourished. No acute distress. Alert and oriented x 3. Pleasant and cooperative. Cardiovascular: Regular rate and rhythm. No murmurs, gallops, or rubs. Lungs: Bilateral coarse breath sounds worse with expiration. Occasional wheezing. Breathing comfortably on room air with no tachypnea or labored breathing during conversation. Abdomen: Soft, nontender, nondistended. Positive bowel sounds. Extremities: Warm, well perfused. 2+ DP and radial pulses bilaterally. No significant edema. LABORATORIES: CBC: Hemoglobin 8.7, platelets 210, WBCs 4.1. Lymphopenia is only abnormality on differential. CRP normal at 53 with an elevated ESR 40. INR 1.0. D-dimer is elevated at 706 (no prior D-dimer for comparison). Fibrinogen normal at 369. BMP: Sodium 128, potassium 4.2, bicarb 25, creatinine 3.76 (baseline creatinine 3.6-3.7), calcium 8.7, glucose 188. Liver testing: Total bilirubin 0.3 with a direct bilirubin less than 0.2. AST and ALT normal at 20 in 18, respectively. Albumin 3.9 with a total protein 5.7. Lipase 17. Troponin 31 with repeat at 2:00 a.m. 31. Flat and not changing so 6 hour canceled. Troponin back in 2019 was 21. NT proBNP 880. No prior NT proBNP for comparison. STUDIES: Chest x-ray 11/12/2020 Compared to 08/28/2020. No airspace opacity or consolidation. Mild aortic calcification. Old healed right clavicle fracture. Postoperative changes distal left clavicle. 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 male admitted for worsening fatigue and nausea in the setting of COVID positivity on PCR 10/30/2020 that was obtained prior to invasive procedure. He has been evaluated in the outpatient setting for subacute to chronic shortness of breath, cough, aspiration with postnasal drip, rhinitis, etc. He was told by the COVID task force to a come to the emergency department because he complained of worsening fatigue and some nausea. He has junky lungs but is breathing comfortably on room air saturating 100% and is breathing comfortably. He did receive dexamethasone 10 mg in the emergency department. His chest x-ray looked pretty good and does not look like a severe COVID patient. His risk factors for severe disease include age over 65, hypertension, chronic kidney disease, chronic lung disease, lymphopenia, elevated D-dimer, organ transplant, and chronic immunosuppression. His creatinine clearance is approximately 21 in the setting of CKD stage 4. Creatinine clearance less than 30 is a relative contraindication to the use of remdesivir. Overall, he looks very good considering his comorbidities and risk factors for severe COVID. I thinkfor now we will watch him closely and have transplant ID assess him tomorrow to see if they have anyrecommendations for his management. For now, we will work on bronchial hygiene to clear the mucus and monitor his respiratory status andoxygenation carefully. Given his creatinine clearance less than 30 will hold off on remdesivir untilwe have guidance from Infectious Disease. If he worsens tonight we can reconsider, but I do not think is necessary at this time. We will hold on further steroids as well. Plan for Today ??? Continue to monitor breathing and oxygen saturation. Currently 100% on room air. o If he has clinical worsening we can escalate therapy, but for now we will monitor closely. ??? Transplant Infectious Disease consult. o Management recs given his multiple risk factors for severe COVID but CrCl < 30 (calculated at 21), but minimal symptoms. o Hold on further steroids and remdesivir for now. ??? Bronchial Hygiene o DuoNebs 4 times daily followed by normal saline nebulizers 4 times daily followed by Aerobika. o Incentive spirometer. o Respiratory therapy to assess and treat. o He has not been using the nebulizers and inhalers given by pulmonology in outpatient setting (due to feeling shaky) so we will hold these for now and favor the more typical inpatient regimen outlined above. ??? May need further evaluation by Pulmonology and ENT, but this could be deferred to outpatient setting. ??? BLE venous ultrasound to rule out DVT and avoid CTA (severe CKD) given elevated D-dimer (more likely to be elevated 2/2 COVID+). ??? Zofran 4 mg po q 6 hours PRN nausea. ??? Continue his immunosuppressants: Tacrolimus, prednisone, and mycophenolate. ??? Continue home medications including aspirin, atorvastatin, calcium with vitamin-D, coenzyme Q10,doxazosin, lamotrigine, levothyroxine, loratadine, torsemide, and Singulair. > FEN: Renal CKD Diet. > Prophylaxis: Heparin subcu. > Code Status: Full Code. > Disposition: Requires inpatient level of care. Kevin Bradford M.D. 11/12/20 documented in this encounter Consult Notes Bijan Booth, RDemetriusN. - 11/13/2020 10:20 AM CDT Discharge Planning Assessment SUBJECTIVE Referral Data Referral Source: Case Screening Referral Reason: Other (comment) Referral Reason Other: COVID 19 Who was present during the interview?: Patient Lease Attendant Services Used: No Patient Information Primary Caregiver: Self Accompanied by/Relationship: Unaccmpanied Diet/Texture: By mouth Legal Information Legal Decision Maker: Self Advance Directives: Advanced Care Plan Advance Directives Status: Not Activated Caregiver Information Caregiver Name: Self Services Requested Physical Therapy Frequency: N/A Occupational Therapy Frequency: N/A OBJECTIVE Functional Status (ADLs) Functional Status: Independent Assistive Devices: None Level of Assistance: Independent Dressing: Independent Feeding: Independent Bathing: Independent Grooming: Independent Toileting: Independent Transfer to/from Bed, Chair Etc.: Independent Mobility: Independent Meal Prep: Independent Medication Setup/Administration: Independent Telephone Use: Independent Housekeeping: Independent Shopping: Independent Managing Finances: Independent Behavior: Oriented, Appropriate Communication: Can write, Talks, Understands speaking, Understands Slovenian, Reads, Appropriate to age/development Environmental Supports Home Environment: Other (comment) Home Environment Other: Town home Anticipated Modifications to the Patient's Home: None Anticipated Needs/Assistive Devices ADL Anticipated Needs: None Transportation Needs: Independent to drive, Support from family Finance/Insurance Primary insurance: MEDICARE A AND B Secondary insurance: [employer] Does the Patient have any Financial Concerns?: No Income Source: Social security, Pension Income/Expense Information: Income exceeds expenses Discharge Planning Barriers To Discharge: Comorbidities Strengths: Premorbid level of function, Support of immediate family, Support of extended family/friends, Attitude of family, Attitude of self, Home design, Adaptive/Assistive products, Ability to acquire knowledge Type of Residence: Private residence Support Systems: Family members, Friends/neighbors Assistance Recommended after Discharge: None Home Care Services: No Anticipated Discharge Destination: Home or Self Care Does the patient need discharge transport arranged?: No ASSESSMENT / PLAN Plan Assessment: The manager product management met with Bruce Singh to discuss his current hospitalization and home going needs. The patient was unaccompanied. The patient was a reliable historian. The role of manager product management was reviewed. The patient reviewed his prior level of care and support system. The patient receives support from his extended family. The patient described his living environment as a [facility] with level entry. Housekeeping, grocery shopping, meal prep, and other household responsibilities have previously been completed by patient. manager product management discussed the patient's potential needs at dismissal based on their home s etting, previous needs and responsibilities, homebound status, and relevant assessments with the patient. The patient will be safe and supported to return home alone when medically ready. Support will be provided by the patient's friends and family. The patient demonstrated understanding when discussing his home going plans and anticipated needs. The patient reports living in a one level town home without any steps or stairs. The patient lives alone. The patient is independent with all ADLs. The patient has advanced directives. The patient denies financial concerns as he is retired, collects social security and has other investments as well. The patient rpeortst hat his sister Parris will provide transportation upon discharge. COVID-19 Assessment: - Is there an appropriate caregiver available at home? Yes. Patient describes the caregiver support as Friends and family - Is there a separate bedroom/space where the patient can recover without sharing immediate space with others? yes, Lives Alone - What are the patient's resources for access to food and other necessities? Friends/Family, These resources are readily available. - Does the patient and other household members have access to appropriate, recommended personal protective equipment (such as a mask)? Yes - Is the patient/caregiver capable of adhering to precautions recommended as part of home care or isolation (e.g., respiratory hygiene and cough etiquette, hand hygiene)? Yes - Are there household members who may be at increased risk of complications from COVID-19 infection (.e.g., people >65 years old, young children, women, people who are immunocompromised or who have chronic heart, lung, or kidney conditions)? No - Does the patient have the ability to transport his or herself to and from an essential visit that cannot be done by telehealth? Yes At this time, the care team has not identified any skilled post-hospital discharge care needs that require the assistance of the Care Management Team. After reviewing the patient's chart and meeting with the patient, the manager product management deemed the LACE+/readmission questions were not necessary. The patient reports understanding that he will dismiss from the hospital when medically stable. Pending hospital course and medical readiness, no barriers to dismissal have been identified at this time. Plan: The patient agrees with the following plan. 1. Patient's anticipated discharge disposition is: Home to Self Care 2. Transportation upon dismissal will be provided by family--Sister Parris. 3. manager product management recommended remote patient monitoring. 4. manager product management provided information regarding the dismissal process. 5. manager product management placed or requested the following hospital-based consult orders and/or referrals:None. 6. manager product management will continue to assess for homegoing needs with the interdisciplinary team. 7. manager product management encouraged the patient to reach out with any questions/concerns. Signed by: Bijan Booth R.N. 11/13/2020 Warner Martinez M.D. - 11/13/2020 7:01 AM CDTAssociated Order(s): IP CONSULT TO INFECTIOUS DISEASES Infectious Diseases Transplant Consulting Service - eConsult Note In order to decrease exposures and transmission of SARS-CoV2, the patient was assessed virtually, with interval history and exam findings reviewed from chart and the attending service. The patient was not interviewed by phone, but not examined today. DEMOGRAPHIC INFORMATION Patient Name: Bruce Jordan [facility] Clinic Number: [id number] Age: 65 y.o. Birthdate: 1955 Sex: male Service Date: 11/13/20 Referring provider: Perez Alexander M.D. Reason for consult: COVID-19 infection SUBJECTIVE HISTORY OF PRESENT ILLNESS Bruce is a 65 y.o. male with a past history of liver transplant for autoimmune hepatitis. He was admitted on 11/12/2020 for COVID-19 infection. Dura was 1st transplant in 1998 for autoimmune hepatitis. 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 Bruce has previously been followed by Transplant Infectious Disease since December 2023 chronic cough that began in early 2019. CT scan showed tree-in-bud nodularity and it was felt that this was secondaryto recurrent aspiration episodes. He was last seen by Trung Plasencia in clinic on February 02 2020. He has been followed by ENT and Pulmonary Medicine since that time too. As part of this work up for possible regurgitation, he was scheduled for an EGD and manometry this week. He had a screening RETAIL BUSINESS ANALYST swab forCOVID-19, which was positive. He does note increasing nausea, fatigue and decreased taste and appetite. His baseline cough has not largely changed and is productive for green/yellow sputum. He had no objective fevers but did have some mild chills earlier in the week. He has had no known recent COVID contacts. He did receive 2 doses of the Moderna vaccine with his 2nd dose in early August. He presented to the emergency department yesterday following the advice of the COVID monitoring service. He had received 1 dose of monoclonal antibody on October 31. He also received 10 mg of dexamethasoneyesterday. OBJECTIVE PHYSICAL EXAMINATION Vital Signs: Temperature: [36.3 ??C-37 ??C] 36.6 ??C Heart Rate: [61-78] 61 Resp Rate: [15-20] 16 Blood Pressure: (136-151)/(72-84) 148/74 SpO2: [96 %-100 %] 99 % Flow Rate (L/min): [0 L/min] 0 L/min Pulse Rate: [60-82] 61 DIAGNOSTICS: I have reviewed diagnostics. Studies of note include: Pertinent microbiology: ??? RETAIL BUSINESS ANALYST swab for SARS-CoV-2 PCR (August 25): Undetected ??? Mycobacterial culture, sputum (August 28): No growth after 42 days ??? Fungal culture, sputum (August 28): Penicillium species, few ??? Sputum culture (August 28): 2+ Serratia marcescens ??? Mycobacterial culture, sputum (October 12): No growth to date ??? Fungal culture, sputum (October 12): Aspergillus fumigatus complex, few ??? Sputum culture (October 12): 2+ Serratia marcescens, 1+ methicillin- susceptible Staphylococcus aureus ??? RETAIL BUSINESS ANALYST swab for SARS-CoV-2 PCR (October 30): Detected ??? Blood culture, peripheral (November 12): In process Lab Results Component Value Date CYTOABIGG Positive (A) 06/14/2013 EBVVCAIGM Negative 10/21/2012 EBVVCAIGG Positive 10/21/2012 EBVNUCLEAGAB Positive 10/21/2012 HSVIIGG Positive 03/25/2018 RCW8HFU Negative 03/25/2018 HAIGGHAIGG CANCELED 03/01/2019 HEPBCAB Negative 03/01/2019 HEPBIGM Negative 08/26/2017 HEPBSAG Negative 03/01/2019 HEPBSAB Positive 03/01/2019 HEPBSABQN 64.2 03/01/2019 HEPCAB Negative 03/01/2019 HVCOPHIVC3 Negative 03/01/2019 MEASLESABIGG Positive 10/21/2012 VARICELZOS Positive 03/25/2018 QUANTTBGPBR Negative 03/01/2019 Lab Results Component Value Date HGB 7.7 (L) 11/13/2020 WBC 3.6 11/13/2020 LYMPHSABS 0.26 (L) 11/13/2020 NEUTROPHILS 3.10 11/13/2020 EOSABS <0.03 11/13/2020 PLT 220 11/13/2020 NA 132 (L) 11/13/2020 KSERUM 4.4 11/13/2020 CL 98 11/13/2020 BICARB 21 (L) 11/13/2020 CREATININE 3.84 (H) 11/13/2020 EGFRNONBLKAA 15 (L) 11/13/2020 ALT 15 11/13/2020 AST 20 11/13/2020 ALKPHOS 103 11/13/2020 BILITOT 0.2 11/13/2020 INR 1.0 11/12/2020 CRP 5.3 11/13/2020 SEDRATE 40 (H) 11/12/2020 QTCINT 469 11/12/2020 ASSESSMENT / PLAN #1 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 male with a past history of liver transplant who is admitted with a mild COVID-19infection. However he is an immunocompromised host and so is at increased risk of disease progression. Thankfully he did receive monoclonal antibodies which would be the best treatment for him at this time. He does not require any modulation to his immunosuppression. He did have 2 doses of the COVID-19 vaccine. We do know that transplant patients can have a suboptimal immune response to the vaccination. I have also asked the lab sequence this for a COVID -19 varying. No further COVID directed therapies are required at this time. He should continue to be monitored bythe [facility] as outlined below. We will sign off at this time. RECOMMENDATIONS: 1. No further COVID directed therapy at this time. No further doses of dexamethasone required. 2. Given that this is a post-vaccine infection, I have asked the lab to sequences for a COVID -19 variant. 3. We will sign off. Please page the Transplant-ID service pager at [phone] with questions. Thank you for the consultation. Patient history, evaluation and plan was reviewed with Transplant and COVID ID consultants, Dr. Jose Biggs and Dr. Candice Mccarthy. Warner Martinez M.D. PGY6 Transplant Infectious Diseases Fellow COVID-19 RELATED SIGN OFF NOTE 1. COVID-19 symptoms started: October 30, 2020 2. Risk factors for severe disease: Age > 65 years, Bone marrow or organ transplant, ESRD and Hypertension 3. For patients with SEVERE disease, place an eConsult with the COVID Frontline Care Team 24-48 hours prior to your hospital discharge ([facility] - General eConsult in Discharge Navigator). Indicate whetherthe patient will continue remdesivir in the outpatient setting. For patients discharged to a shelter facility, memory home, or [facility], clinical monitoring will be performed by the facility providers. 4. After discharge, isolation status can be discontinued based on patient's risk category: a. Asymptomatic patient with immune compromise: At least 20 days have passed since the date of the first positive PCR test AND patient has remained asymptomatic throughout their infection For additional questions, please page IPAC (Please do not page the COVID ID service for questions regarding isolation status) 5. Additional post-discharge follow up: ? No additional tests other than those noted above : Instructions to Patient: 1. If you have a scheduled [id number] doctor's appointment before isolation precautions are lifted, please call the clinic to reschedule for a later date or change to a virtual appointment. 2. If new or Worsening Symptoms occur, you should report those to the Remote Monitoring Team after Hospital Discharge 3. If any of these symptoms are severe or suddenly changed, call 911 or self- transport to your nearest Emergency Department. Notify 911 dispatch that you have COVID-19. Wear a mask before going to the Emergency Department. ??? Worsened shortness of breath ??? New or worsening cough ??? New productive cough or cough with blood ??? New chest pain or pain with breathing ??? Fevers, chills, sweats ??? Vomiting or diarrhea ??? Lightheadedness ? ? New temperature > 38.3 ??C ??? Fast heart rate ??? Fast breathing rate Associated attestation - Candice Mccarthy M.B., Ch.B. - 11/13/2020 1:01 PM CDT I agree with the documentation of Warner Martinez M.D. dated 11/13/20. Please see that note for detailed recommendations. documented in this encounter Nursing Notes Blanca Hernandez R.N. - 11/13/2020 2:17 PM CDT Shift Goals: Clinical Goals for the Shift: Pt will maintain Sp02 > 90% on room air. Identify possible barriers to meeting goals/advancing plan of care: None End of Shift Summary: Goal met. [place] [facility] [place] Transportation provided by patient's sister. PIV removed prior to dismissal. AVS reviewed and education completed prior to DC. VSS. Problem: RESPIRATORY - ADULT Goal: Achieves optimal ventilation and oxygenation Outcome: Adequate for Discharge Patient maintained SpO2 > 90% on room air. Completed scheduled nebs and Aerobika during shift. Problem: DISCHARGE PLANNING Goal: Patient discharge needs identified Outcome: Adequate for Discharge Patient discharged [place] [facility] [place] (11/13). Electronically signed by: Blanca Hernandez R.N. 11/13/20 2:21 PM CDT Kathryn Campbell R.N., C.M.SDemetriusRSteve - 11/13/2020 5:15 AM CDT Shift Goals: Clinical Goals for the Shift: Pt will maintain Sp02 > 90% on room air. Identify possible barriers to meeting goals/advancing plan of care: No barriers noted. End of Shift Summary: Pt admitted to [facility] last evening for increasing symptoms of known COVID-19 infection. VSS. Denies pain. Pt slept poorly overnight. Will continue to monitor. Problem: RESPIRATORY - ADULT Goal: Achieves optimal ventilation and oxygenation Outcome: Progressing Note: Pt remains on room air, with Sp02 >90%. Warner Santillan L.R.T. - 11/12/2020 8:18 PM CDT Patient is a 65 y.o. male admitted on 11/12/2020 Shift Note: Patient seen for Aerobika initiation. Patient demonstrated clear understanding of use, as well as a strong productive cough. Therapy completed. Problems: #1 Acute Bronchitis Due To COVID-19 Oxygen Therapy $Delivery Method: Room air Social History Tobacco Use Smoking Status Never Smoker Smokeless Tobacco Never Used No results for input(s): PO2 ART, PCO2 ART, PH ART in the last 24 hours. Ko Sanchez 11/12/20 8:19 PM CDT documented in this encounter ED Notes Molly Kilgore M.D. - 11/12/2020 5:34 PM CDT I have personally seen and examined this patient. I have fully participated in the care of this patient. I have reviewed all clinical information including history, physical exam, orders, and plan. I agree with the note of the resident. 65-year-old gentleman with a history of liver transplant x2, last in 2012, stage IV CKD, hypertension, hyperlipidemia, bipolar disorder and recent COVID-19 infection diagnosed 13 days ago who presents for evaluation of nausea, vomiting, dyspnea on exertion, congestion, and cough productive of thick sputum. He is followed by the COVID team and they advised that he come in for assessment. Exam: Pleasant gentleman in no acute distress, articulate Mild conversational dyspnea Actively coughing No calf asymmetry or edema or tenderness Impression/plan: COVID-19, history of liver transplant with active vomiting Patient requires prednisone and tacrolimus as immunosuppressants for his liver transplant. Unfortunately, he has vomited the aforementioned in the context of this illness. His creatinine is stable, fortunately. Sodium is slightly low at 128. I do not believe that the troponin elevation is a manifestation of acute coronary syndrome. We have obtained a chest x-ray which was negative for consolidative findings. He does have an elevated D-dimer which could be secondary to COVID-19 but could also be a harbinger of venous thromboembolic disease. With his creatinine elevation, I am not inclined to proceedwith IV contrast. Will plan to admit to the hospital for IV hydration, bilateral lower extremity duplex ultrasound, and further evaluation and treatment. ED Course as of Nov 12 1733 Sun November 12, 2020 1624 EHR reviewed: Complex past medical history including liver transplantation an ongoing immunosuppression (prednisone and tacrolimus). I note that he had the Moderna COVID-19 vaccine on 08/06/2020 and 09/03/2020 and despite this, he was diagnosed with COVID-19 13 days ago. 1627 Last creatinine 3.5 Creatinine, P(!): 3.76 1627 Sodium, P(!): 128 1627 Glucose, P(!): 188 1627 Hemoglobin(!): 8.7 1627 Last hemoglobin 9.8 1627 Troponin T, Baseline, 5th gen(!): 31 1627 2H Delta Interp: Not Changing Final Diagnoses: as of Nov 12 1733 Anemia Hyponatremia Shortness Of Breath Acute Bronchitis Due To COVID-19 Elevated D-Dimer Uncertain Significance Molly Kilgore M.D. 11/12/20 1738 Molly Kilgore M.D. 11/13/20 1452 Daily Kumar R.N. - 11/12/2020 4:15 PM CDT Pt presents to ED as he was advised to come in by [facility] remote monitoring team for COVID-19. Pt reports he tested positive for COVID 10/30/2020 when he was tested prior to a procedure. Pt reports his fatigue, nausea and shortness of breath have been increasing. Pt reported this to the remote monitoring team and they advised that he come to the ED. Pt denies fever since 10/30/2020. Pt reports he coughs up yellow sputum. Daily Kumar R.N. 11/12/20 1619 Alena Gu M.D. - 11/12/2020 4:12 PM CDT SUBJECTIVE CHIEF COMPLAINT/REASON FOR VISIT Shortness of Breath HISTORY OF PRESENT ILLNESS Bruce Singh is a 65 y.o. male with a history of autoimmune hepatatis s/p orthotopic liver transplant in 1998 and retransplant in 2012 due to hepatic thrombosis on chronic immunosuppression with prednisone, tacrolimus, and CellCept as well as left renal artery stenosis status post stent placement, stage IV CKD, hypertension, hyperlipidemia, CAD, bipolar 1 disorder, and hypothyroidism who presents for evaluation of shortness of breath. Patient was diagnosed on 10/30 with COVID. He notes a fever and diarrhea initially which subsequently resolved. He has been doing well until the last 3-4 days when he developed increasing shortness of breath with exertion, increase of chronic postnasal drip, andincreased cough. No headaches or muscle aches. Denies chest pain. He does note he has had decreased appetite due to change in taste and has had increased gag reflex and vomited after brushing his teethmultiple times. He has vomited up his anti-rejection medicine throughout this time. REVIEW OF SYSTEMS Constitutional: Negative for chills and fever. HENT: Positive for postnasal drip. Negative for rhinorrhea and sore throat. Eyes: Negative for pain and visual disturbance. Respiratory: Positive for cough and shortness of breath. Cardiovascular: Negative for chest pain. Gastrointestinal: Negative for constipation, diarrhea, nausea and vomiting. Endocrine: Negative for polyuria. Genitourinary: Negative for dysuria and frequency. Musculoskeletal: Negative for arthralgias and myalgias. Skin: Negative for rash. Neurological: Negative for light-headedness and headaches. OBJECTIVE Initial Vitals Temperature Pulse Rate Heart Rate Resp Rate Blood Pressure SpO2 11/12/20 1437 11/12/20 1437 -- 11/12/20 1437 11/12/20 1437 11/12/20 1437 37 ??C 71 20 136/72 98 % Pain Score 11/12/20 1438 0 - No pain PHYSICAL EXAMINATION Constitutional: Nursing note and vitals reviewed. HENT: Head: Atraumatic. No signs of injury. Nose: No nasal discharge. Mouth/Throat: Oropharynx is clear and moist. Mucous membranes are moist. Eyes: EOM are normal. Pupils are equal, round, and reactive to light. Neck: Neck supple. Cardiovascular: Normal rate, regular rhythm, S1 normal, S2 normal and normal heart sounds. Pulses are palpable. Capillary refill: takes less than 3 seconds, Edema: no edema noted Pulmonary/Chest: Effort normal. There is normal air entry. No stridor. No tachypnea. No respiratory distress. Air movement is not decreased. He has wheezes. He has rhonchi. Abdominal: Soft. Non-distended. exhibits no distension. There is no abdominal tenderness. There is no rebound and no guarding. Musculoskeletal: General: No tenderness, deformity or edema. Normal range of motion. Cervical back: Normal range of motion and neck supple. Neurological: Alert and oriented to person, place, and time. He is not disoriented. No cranial nervedeficit. He exhibits normal muscle tone. Coordination normal. Skin: Skin is warm, dry, intact and normal color. No rash noted. Psychiatric: He has a normal mood and affect. Behavior is normal. ASSESSMENT/PLAN Bruce Singh is a 65 y.o. male who presents for evaluation of shortness of breath and cough inthe setting of known COVID infection. History and physical exam performed. Vitals are within normal limits upon presentation. Differential includes COVID infection, COVID pneumonia, COPD exacerbation. Labs were obtained in triage. Portable chest x-ray is negative for signs of pneumonia despite his abnormal lung exam. EKG shows sinus rhythm with sinus arrhythmia and nonspecific ST-T wave changes in the inferior leads which is consistent with his previous EKG. DuoNebs were administered with mild improvement in symptoms. Dexamethasone was also administered. Lab show hemoglobin down trending to 8.7 from 9.8 approximately 2 months ago and lymphocytopenia. Leukocyte count is normal. Creatinine is elevated 3.76 with GFR of 16 consistent with his known stage IV CKD. He is hyponatremic with sodium of 128;500 cc of normal saline were administered. Initial troponin is 31 with no significant delta. BNP is mildly elevated at 880. LFTs and lipase within normal limits. D-dimer was obtained in triage and is elevated when adjusted for age at 706. I suspect patient's symptoms are due to COVID rather than an acute PE. He has no signs of DVT on examination. Patient will require admission for his worsening shortness of breath. Will admit him to the hospital for ongoing workup of possible underlying PE with lower extremity ultrasounds and potentially V/Q scan given his clear x- ray. Will not obtain CT PE study at this time given his poor renal function. Discussed findings with patient he reported understanding.He is agreeable with admission. Contacted liver transplant team given his 2 prior transplants and the y feel comfortable with him going to a regular floor. Recommended hepatology consult as needed if questions arise about his anti-rejection meds. ED Course as of Nov 12 1733 Sun November 12, 2020 1733 Troponin T, 2 hr, 5th gen(!): 31 1733 2H Delta Interp: Not Changing Final Diagnoses: as of Nov 12 1733 Anemia Hyponatremia Shortness Of Breath Acute Bronchitis Due To COVID-19 Elevated D-Dimer Uncertain Significance Alena Gu M.D. Resident 11/13/20 0053 Faith Henley M.S.N., R.N., ANTONIO - 11/12/2020 2:38 PM CDT Patient known COVID + and on remote monitoring. Patient was told to report to ED for evaluation. He has been having increased nausea and tiredness, vomits if he brushes his teeth. Faith Henley M.S.N., R.N., ANTONIO 11/12/20 2250 documented in this encounter Miscellaneous Notes Hospital Course - Antonia Dutta M.B.B.S. - 11/13/2020 12:29 PM CDT Bruce Singh is a 65 y.o. male admitted for worsening fatigue and nausea in the setting of COVID positivity on PCR 10/30/2020 that was obtained prior to invasive procedure. He has been evaluated in the outpatient setting for subacute to chronic shortness of breath, cough, aspiration with postnasal drip, rhinitis, etc. He was told by the COVID task force to a come to the ER because he complainedof worsening fatigue and some nausea. He has junky lungs but is breathing comfortably on room air saturating 100% and is breathing comfortably. He did receive dexamethasone 10 mg in the ER. His chest x-ray looked pretty good and does not look like a severe COVID patient.?? He was admitted for management of following. 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 His risk factors for severe disease include age over 65, hypertension, chronic kidney disease, chronic lung disease, lymphopenia, elevated D-dimer, organ transplant, and chronic immunosuppression. His creatinine clearance is approximately 21 in the setting of CKD stage 4. Creatinine clearance less than 30 is a relative contraindication to the use of remdesivir. ?? Overall, he was admitted to monitor overnight and seen by transplant ID that they would not recommend any active intervention. He received respiratory therapy without any new oxygen need or worsening respiratory symptoms. He agreed to go home and monitor on the symptoms. In addition, his hemoglobin dropped from 8.9 -> 7.7 from admission though no signs of active bleeding anywhere. He will follow up with transplant team with sets of labs on 11/27/20 including CBC. ?? documented in this encounter Plan of Treatment Upcoming Encounters Date Type Specialty Care Team Description 04/24/2022 Appointment Laboratory Medicine Angélica Granger P.A.-C. [address] [place] [phone] 04/25/2022 Office Visit Otorhinolaryngology Dex Matta APRN, C.N.P., M.S.N. [address] [place] [address] [phone] 05/08/2022 Appointment Laboratory Medicine Angélica Granger P.A.-C. [address] [place] [phone] 05/08/2022 Clinical Admitting/Central Communication Scheduling 05/10/2022 Appointment Radiology Jeremie Rose M.D. [address] [place] [phone] 05/10/2022 Comprehensive Visit Orthopedic Surgery Warner Graves M.D. [address] [place] [phone] 05/22/2022 Appointment Laboratory Medicine Angélica Granger P.A.-C. [address] [place] [phone] 06/05/2022 Appointment Laboratory Medicine Angélica Granger P.A.-C. [address] [place] [phone] 06/19/2022 Appointment Laboratory Medicine Angélica Granger P.A.-C. [address] [place] [phone] 07/03/2022 Appointment Laboratory Medicine Angélica Granger P.A.-C. [address] [place] [phone] 07/17/2022 Appointment Laboratory Medicine Angélica Granger P.A.-C. [address] [place] [phone] 07/31/2022 Appointment Laboratory Medicine Angélica Granger P.A.-C. [address] [place] [phone] 08/14/2022 Appointment Laboratory Medicine Angélica Granger P.A.-C. [address] [place] [phone] 08/28/2022 Appointment Laboratory Medicine Angélica Granger P.A.-C. [address] [place] [phone] documented as of this encounter Procedures Procedure Name Priority Date/Time Associated Comments Diagnosis D-DIMER, P STAT 11/13/2020 4:06 Results for AM CDT this procedure are in the results section. CBC WITH STAT 11/13/2020 4:06 Results for DIFFERENTIAL, B AM CDT this procedu re are in the results section. C-REACTIVE PROTEIN STAT 11/13/2020 4:06 Result s for (CRP), S/P AM CDT this procedure are in the results section. MAGNESIUM, S STAT 11/13/2020 4:06 Results for AM CDT this procedure are in the results section. LACTATE DEHYDROGENASE STAT 11/13/2020 4:06 Res ults for (LD), S AM CDT this procedure are in the results section. FERRITIN, S STAT 11/13/2020 4:06 Results for AM CDT this procedure are in the results section. COMPREHENSIVE STAT 11/13/2020 4:06 Results for METABOLIC PANEL, S/P AM CDT this pr ocedure are in the results section. D-DIMER, P STAT 11/13/2020 12:17 Results for AM CDT this procedure are in the results section. CBC WITH STAT 11/13/2020 12:17 Results for DIFFERENTIAL, B AM CDT this procedu re are in the results section. MAGNESIUM, S STAT 11/13/2020 12:17 Results for AM CDT this procedure are in the results section. LACTATE DEHYDROGENASE STAT 11/13/2020 12:17 Re sults for (LD), S AM CDT this procedure are in the results section. FERRITIN, S STAT 11/13/2020 12:17 Results for AM CDT this procedure are in the results section. US LOWER EXTREMITY RAD - Semiurgent 11/12/2020 9:34 Re sults for VEINS BILATERAL (Fast; most ED PM CDT this proce dure patients; some are in the inpatients) results section. PEP THERAPY Routine 11/12/2020 7:59 PM CDT BACTERIA / RIMMA Routine 11/12/2020 7:41 Result s for CULTURE, BLOOD PM CDT this procedur e are in the results section. HEPATIC FUNCTION Routine 11/12/2020 7:40 Results for PANEL, S PM CDT this procedure are in the results section. ACTIVATED PARTIAL Routine 11/12/2020 7:40 Results for THROMBOPLASTIN TIME PM CDT this pro cedure (APTT), P are in the results section. SEDIMENTATION RATE, B Routine 11/12/2020 7:40 Res ults for PM CDT this procedure are in the results section. PROTHROMBIN TIME Routine 11/12/2020 7:40 Results for (PT), P PM CDT this procedure are in the results section. FIBRINOGEN, P Routine 11/12/2020 7:40 Results for PM CDT this procedure are in the results section. D-DIMER, P Routine 11/12/2020 7:40 Results for PM CDT this procedure are in the results section. CBC WITH Routine 11/12/2020 7:40 Results for DIFFERENTIAL, B PM CDT this procedu re are in the results section. TYPE AND SCREEN Routine 11/12/2020 7:40 Results f or PM CDT this procedure are in the results section. C-REACTIVE PROTEIN Routine 11/12/2020 7:40 Result s for (CRP), S/P PM CDT this procedure are in the results section. PHOSPHORUS Routine 11/12/2020 7:40 Results for (INORGANIC), S PM CDT this procedur e are in the results section. MAGNESIUM, S Routine 11/12/2020 7:40 Results for PM CDT this procedure are in the results section. LACTATE, B/P Routine 11/12/2020 7:40 Results for PM CDT this procedure are in the results section. FERRITIN, S Routine 11/12/2020 7:40 Results for PM CDT this procedure are in the results section. BASIC METABOLIC Routine 11/12/2020 7:40 Results f or PANEL, S/P PM CDT this procedure are in the results section. ECG Routine 11/12/2020 7:37 Results for PM CDT this procedure are in the results section. ADULT OXYGEN THERAPY Routine 11/12/2020 7:09 PM CDT ADULT OXYGEN THERAPY Routine 11/12/2020 7:09 PM CDT TROPONIN T, 2H/6H, Timed 11/12/2020 5:08 Result s for 5TH GEN, P PM CDT this procedure are in the results section. DX CHEST PORTABLE 1 RAD - Semiurgent 11/12/2020 3:35 R esults for VIEW (Fast; most ED PM CDT this procedur e patients; some are in the inpatients) results section. TROPONIN T, BASELINE, STAT 11/12/2020 3:09 Res ults for 5TH GEN, P PM CDT this procedure are in the results section. HEPATIC FUNCTION STAT 11/12/2020 3:09 Results for PANEL, S PM CDT this procedure are in the results section. NT-PRO B-TYPE STAT 11/12/2020 3:09 Results for NATRIURETIC PEPTIDE PM CDT this pro cedure (BNP), S are in the results section. SEDIMENTATION RATE, B STAT 11/12/2020 3:09 Res ults for PM CDT this procedure are in the results section. PROTHROMBIN TIME STAT 11/12/2020 3:09 Results for (PT), P PM CDT this procedure are in the results section. FIBRINOGEN, P STAT 11/12/2020 3:09 Results for PM CDT this procedure are in the results section. D-DIMER, P STAT 11/12/2020 3:09 Results for PM CDT this procedure are in the results section. CBC WITH STAT 11/12/2020 3:09 Results for DIFFERENTIAL, B PM CDT this procedu re are in the results section. C-REACTIVE PROTEIN STAT 11/12/2020 3:09 Result s for (CRP), S/P PM CDT this procedure are in the results section. LIPASE, S/P STAT 11/12/2020 3:09 Results for PM CDT this procedure are in the results section. BASIC METABOLIC STAT 11/12/2020 3:09 Results f or PANEL, S/P PM CDT this procedure are in the results section. ECG STAT 11/12/2020 3:03 Results for PM CDT this procedure are in the results section. documented in this encounter Results (ABNORMAL) Magnesium (11/13/2020 4:06 AM CDT) [facility] Magnesium, S 2.7 (H) 1.7 - 2.3 11/13/2020 DTL mg/dL 4:52 AM CDT Specimen Anatomical Collection Method Collection Time Receive d Time (Source) Location / / Volume Laterality Blood 11/13/2020 4:06 AM 1 4:27 CDT AM CDT Natasha Rolle M.D., M.P.H. LAB BLOOD ADD-ON Performing Organization Address City/State/ZIP Code Phon e Number [facility] - [address] [place], [place] [address] [facility] [place] [address] [facility] [address] LD (Lactate Dehydrogenase) (11/13/2020 4:06 AM CDT) [facility] Hospital Trudy LD 198 122 - 222 11/13/2020 DTL U/L 5:12 AM CDT Specimen Anatomical Collection Method Collection Time Receive d Time (Source) Location / / Volume Laterality Blood 11/13/2020 4:06 AM 1 4:34 CDT AM CDT Natasha Rolle M.D., M.P.H. LAB BLOOD NON ADD-ON Performing Organization Address [facility] Phon e Number [facility] - 200 [place], [place] [address] [place] [address] (ABNORMAL) D-Dimer (11/13/2020 4:06 AM CDT) athologist Signature D-Dimer, P 542 (H) <=500 ng/mL 11/13/2020 DTL FEU 4:50 AM CDT Comment: D-dimer concentrations increase with age . ??For DVT/PE exclusion, in addition to clinical pre-test probabi lity, age-adjusted D-dimer cut-offs are suggested for patients >50 years old. For additional information refer to the D-dimer assay i n the Laboratory Test Catalog (LTC) and/or AskMayoExpert (SUSANNA) . ----ADDITIONAL INFORMATION---- D-dimer values less than or equal to 500 ng/mL fibrinogen equivalent units (FEU) may be used in co njunction with clinical pre-test probability to exclude deep vein thrombosis (DVT) and/or pulmonary emboli sm (PE). Specimen Anatomical Collection Method Collection Time Receive d Time (Source) Location / / Volume Laterality Blood 11/13/2020 4:06 AM 1 4:28 CDT AM CDT Natasha Rolel M.D., M.P.H. LAB BLOOD ADD-ON Performing Organization Address City/[facility] Phon e Number [facility] - 200 [place], [place] [address] [place] [address] CRP (C-Reactive Protein) (11/13/2020 4:06 AM CDT) athologist Signature C-Reactive 5.3 <=8.0 mg/L 11/13/2020 DT Protein (CRP), 4:57 AM CDT S Specimen Anatomical Collection Method Collection Time Receive d Time (Source) Location / / Volume Laterality Blood 11/13/2020 4:06 AM 1 4:27 CDT AM CDT Natasha Rolle M.D., M.P.H. LAB BLOOD ADD-ON Performing Organization Address City/State/ZIP Code Phon e Number [facility] - [address] [place], [place] [address] [facility] [place] [address] [facility] [address] [facility] (ABNORMAL) CBC with Differential, Blood (11/13/2020 4:06 AM CDT) [facility] Method Time Signature Hemoglobin 7.7 (L) 13.2 - 11/13/2020 DTL 16.6 g/dL 4:38 AM CDT Hematocrit 23.7 (L) 38.3 - 11/13/2020 DTL 48.6 % 4:38 AM CDT Erythrocytes 2.57 (L) 4.35 - 11/13/2020 DTL 5.65 4:38 AM CDT x10(12)/L MCV 92.2 78.2 - 11/13/2020 DTL 97.9 fL 4:38 AM CDT RBC Distrib Width 12.7 11.8 - 11/13/2020 DTL 14.5 % 4:38 AM CDT Platelet Count 220 135 - 317 11/13/2020 DTL x10(9)/L 4:38 AM CDT Leukocytes 3.6 3.4 - 9.6 11/13/2020 DTL x10(9)/L 4:38 AM CDT Neutrophils 3.10 1.56 - 11/13/2020 DTL 6.45 4:38 AM CDT x10(9)/L Lymphocytes 0.26 (L) 0.95 - 11/13/2020 DTL 3.07 4:38 AM CDT x10(9)/L Monocytes 0.20 (L) 0.26 - 11/13/2020 DTL 0.81 4:38 AM CDT x10(9)/L Eosinophils <0.03 0.03 - 11/13/2020 DTL 0.48 4:38 AM CDT x10(9)/L Basophils <0.03 0.01 - 11/13/2020 DTL 0.08 4:38 AM CDT x10(9)/L Specimen Anatomical Collection Method Collection Time Receive d Time (Source) Location / / Volume Laterality Blood 11/13/2020 4:06 AM 4:29 CDT AM CDT Natasha Rolle M.D., M.P.H. LAB BLOOD ADD-ON Performing Organization Address City/State/ZIP Code Phon e Number [facility] - [address] [place], [place] [address] [facility] [place] [address] [facility] [address] (ABNORMAL) Comprehensive Metabolic Panel (11/13/2020 4:06 AM CDT) Analysis Performed At Patho logist Time Signature Potassium, S 4.4 3.6 - 5.2 11/13/2020 DTL mmol/L 4:57 AM CDT Sodium, S 132 (L) 135 - 145 11/13/2020 DTL mmol/L 4:57 AM CDT Chloride, S 98 98 - 107 11/13/2020 DTL mmol/L 4:57 AM CDT Bicarbonate, S 21 (L) 22 - 29 11/13/2020 DTL mmol/L 4:57 AM CDT Anion Gap 13 7 - 15 11/13/2020 DTL 4:57 AM CDT BUN (Blood Urea 73 (H) 8 - 24 11/13/2020 DTL Nitrogen), S mg/dL 4:57 AM CDT Creatinine 3.84 (H) 0.74 - 11/13/2020 DTL 1.35 mg/dL 4:57 AM CDT eGFR-Non 15 (L) >=60 11/13/2020 DTL Black/ mL/min/BSA 4:57 AM CDT Senegalese Comment: ----ADDITIONAL INFORMATION---- Estimated GFR calculated using the 2009 CKD_EPI creatinine equation. eGFR-Black/ 18 (L) >=60 mL/min/BSA 2020 4:57 AM CDT DTL Comment: ----ADDITIONAL INFORMATION---- Estimated GFR calculated using the 2009 CKD_EPI creatinine equation. Calcium, Total, S 8.2 (L) 8.8 - 10.2 mg/dL 11/13/2020 4:57 AM CDT DTL Glucose, S 210 (H) 70 - 140 mg/dL 11/13/2020 4:57 AM CDT D TL Protein, Total, S 5.5 (L) 6.3 - 7.9 g/dL 11/13/2020 4:57 A M CDT DTL Albumin, S 3.8 3.5 - 5.0 g/dL 11/13/2020 4:57 AM CDT D TL Aspartate Aminotransferase 20 8 - 48 U/L 11/13/2020 4 :57 AM CDT DTL (AST), S Alkaline Phosphatase, S 103 40 - 129 U/L 11/13/2020 4: 57 AM CDT DTL Alanine Aminotransferase 15 7 - 55 U/L 11/13/2020 4:5 7 AM CDT DTL (ALT), S Bilirubin, Total, S 0.2 <=1.2 mg/dL 11/13/2020 4:57 AM CDT DTL Specimen Anatomical Collection Method Collection Time Receive d Time (Source) Location / / Volume Laterality Blood 11/13/2020 4:06 AM 4:27 CDT AM CDT Natasha Rolle M.D., M.P.H. LAB BLOOD ADD-ON Performing Organization Address City/State/[facility] Phon e Number [facility] - [address] [place], [place] [address] [place] [address] Ferritin (11/13/2020 4:06 AM CDT) athologist Signature Ferritin, S 222 24 - 336 11/13/2020 DTL mcg/L 7:16 AM CDT Specimen Anatomical Collection Method Collection Time Receive d Time (Source) Location / / Volume Laterality Blood 11/13/2020 4:06 AM 4:27 CDT AM CDT Natasha Rolle M.D., M.P.H. LAB BLOOD ADD-ON Performing Organization Address City/State/[facility] Code Phon e Number [facility] - [address] [place], [place] [address] [facility] [address] Magnesium (11/13/2020 12:17 AM CDT) athologist Signature Magnesium, S CANCELED 1.7 - 2.3 11/13/2020 DTL mg/dL 3:53 AM CDT Comment: REVISED RESULTS ----PREVIOUSLY REPORTED ---- 2.5, Flagged as: Abnormal_High (Reported 11/13/2020 01:53) Specimen Anatomical Collection Method Collection Time Receive d Time (Source) Location / / Volume Laterality Blood (Blood, 11/13/2020 12:17 11/13/2020 1:33 Venous) AM CDT AM CDT Narrative [facility] - 11/13/2020 3:53 AM CDT Magnesium, S was cancelled on 11/13/2020 at 03:53; Contamination suspected. Redraw has been ordered and is in progre ss. Kevin Bradford M.D. LAB BLOOD ADD-ON Performing Organization Address City/[facility] Phon e Number [facility] - [address] [place], [place] [address] [place] [address] [facility] [address] LD (Lactate Dehydrogenase) (11/13/2020 12:17 AM CDT) [facility] Trudy CANCELED 122 - 222 11/13/2020 DTL LD U/L 3:53 AM CDT Comment: REVISED RESULTS ----PREVIOUSLY REPORTED ---- 216, Flagged as: Normal (Reported 11/13/2020 02:07) Specimen Anatomical Collection Method Collection Time Receive d Time (Source) Location / / Volume Laterality Blood (Blood, 11/13/2020 12:17 11/13/2020 1:31 Venous) AM CDT AM CDT Narrative [facility] - 11/13/2020 3:53 AM CDT Hospital Trudy LD was cancelled on 11/13/2020 at 03:53; Contamination suspected. Redraw has been ordered and i s in progress. Kevin Bradford M.D. LAB BLOOD NON ADD-ON Performing Organization Address City/[facility] Phon e Number [facility] - [address] [place], [place] [address] [facility] [place] [address] [facility] [address] [facility] D-Dimer (11/13/2020 12:17 AM CDT) athologist Signature D-Dimer, P CANCELED <=500 ng/mL 11/13/2020 DTL FEU 3:53 AM CDT Comment: REVISED RESULTS ----ADDITIONAL INFORMATION---- D-dimer values less than or equal to 500 ng/mL fibrinogen equivalent units (FEU) may be used in co njunction with clinical pre-test probability to exclude deep vein thrombosis (DVT) and/or pulmonary emboli sm (PE). ----PREVIOUSLY REPORTED ---- 525 D-dimer concentrations increase with age. ??For DVT/PE exclusion, in addition to clinical pre-test probabi lity, age-adjusted D-dimer cut-offs are suggested for patients >50 years old. For additional information refer to the D-dimer assay i n the Laboratory Test Catalog (LTC) and/or AskFlyDataert (SUSANNA) ., Flagged as: Abnormal_High (Reported 11/13/2020 01:55) Specimen Anatomical Collection Method Collection Time Receive d Time (Source) Location / / Volume Laterality Blood (Blood, 11/13/2020 12:17 11/13/2020 1:33 Venous) AM CDT AM CDT Narrative [facility] - [facility] - 11/13/2020 3:53 AM CDT D-Dimer, P was cancelled on 11/13/2020 at 03:53; Contamination suspected. Redraw has been ordered and is in progre ss. Kevin Bradford M.D. LAB BLOOD ADD-ON Performing Organization Address City/State/ZIP Code Phon e Number [facility] - [facility] [address] [place], [place] [address] [facility] [place] [address] [facility] [address] CBC with Differential, Blood (11/13/2020 12:17 AM CDT) athologist Signature Hemoglobin CANCELED 13.2 - 16.6 11/13/2020 DTL g/dL 3:53 AM CDT Comment: REVISED RESULTS ----PREVIOUSLY REPORTED ---- 7.8, Flagged as: Abnormal_Low (Reported 11/13/2020 01:01) Hematocrit CANCELED 38.3 - 48.6 % 11/13/2020 3:53 AM CDT DT L Comment: REVISED RESULTS ----PREVIOUSLY REPORTED ---- 23.5, Flagged as: Abnormal_Low (Reported 11/13/2020 01:01) Erythrocytes CANCELED 4.35 - 5.65 x10(12)/L 11/13/2020 3:53 AM CDT DTL Comment: REVISED RESULTS ----PREVIOUSLY REPORTED ---- 2.53, Flagged as: Abnormal_Low (Reported 11/13/2020 01:01) MCV CANCELED 78.2 - 97.9 fL 11/13/2020 3:53 AM CDT DT L Comment: REVISED RESULTS ----PREVIOUSLY REPORTED ---- 92.9, Flagged as: Normal (Reported 11/13/2020 01:01) RBC Distrib Width CANCELED 11.8 - 14.5 % 11/13/2020 3:53 AM CDT DTL Comment: REVISED RESULTS ----PREVIOUSLY REPORTED ---- 12.8, Flagged as: Normal (Reported 11/13/2020 01:01) Platelet Count CANCELED 135 - 317 x10(9)/L 11/13/2020 3:53 AM CDT DTL Comment: REVISED RESULTS ----PREVIOUSLY REPORTED ---- 194, Flagged as: Normal (Reported 11/13/2020 01:01) Leukocytes CANCELED 3.4 - 9.6 x10(9)/L 11/13/2020 3:53 AM C DT DTL Comment: REVISED RESULTS ----PREVIOUSLY REPORTED ---- 3.6, Flagged as: Normal (Reported 11/13/2020 01:01) Neutrophils CANCELED 1.56 - 6.45 x10(9)/L 11/13/2020 3:53 A M CDT DTL Comment: REVISED RESULTS ----PREVIOUSLY REPORTED ---- 3.35, Flagged as: Normal (Reported 11/13/2020 01:01) Lymphocytes CANCELED 0.95 - 3.07 x10(9)/L 11/13/2020 3:53 A M CDT DTL Comment: REVISED RESULTS ----PREVIOUSLY REPORTED ---- 0.15, Flagged as: Abnormal_Low (Reported 11/13/2020 01:01) Monocytes CANCELED 0.26 - 0.81 x10(9)/L 11/13/2020 3:53 AM CDT DTL Comment: REVISED RESULTS ----PREVIOUSLY REPORTED ---- 0.06, Flagged as: Abnormal_Low (Reported 11/13/2020 01:01) Eosinophils CANCELED 0.03 - 0.48 x10(9)/L 11/13/2020 3:53 A M CDT DTL Comment: REVISED RESULTS ----PREVIOUSLY REPORTED ---- <0.03, Flagged as: Normal (Reported 11/13/2020 01:01) Basophils CANCELED 0.01 - 0.08 x10(9)/L 11/13/2020 3:53 AM CDT DTL Comment: REVISED RESULTS ----PREVIOUSLY REPORTED ---- <0.03, Flagged as: Normal (Reported 11/13/2020 01:01) Specimen Anatomical Collection Method Collection Time Receive d Time (Source) Location / / Volume Laterality Blood (Blood, 11/13/2020 12:17 11/13/2020 Venous) AM CDT 12:54 AM CDT Narrative [facility] - [facility] - 11/13/2020 3:53 AM CDT CBC with Differential, B was cancelled on 11/13/2020 at 03:53; Contamination suspected. Redraw has been ordered and i s in progress. Kevin Bradford M.D. LAB BLOOD ADD-ON Performing Organization Address City/State/ZIP Code Phon e Number [facility] - [address] [place], [place] [address] [facility] [place] [address] [facility] [address] Ferritin (11/13/2020 12:17 AM CDT) P athologist Signature Ferritin, S CANCELED 24 - 336 11/13/2020 DTL mcg/L 3:53 AM CDT Comment: REVISED RESULTS ----PREVIOUSLY REPORTED ---- 194, Flagged as: Normal (Reported 11/13/2020 02:15) Specimen Anatomical Collection Method Collection Time Receive d Time (Source) Location / / Volume Laterality Blood (Blood, 11/13/2020 12:17 11/13/2020 1:16 Venous) AM CDT AM CDT Narrative [facility] - [facility] - 11/13/2020 3:53 AM CDT Ferritin, S was cancelled on 11/13/2020 at 03:53; Contamination suspected. Redraw has been ordered and is in progre ss. Kevin Bradford M.D. LAB BLOOD ADD-ON Performing Organization Address City/State/ZIP Code Phon e Number [facility] - [facility] [address] [place], [place] [address] [facility] [place] [address] [facility] [address] US Lower Extremity Veins Bilateral (11/12/2020 9:34 PM CDT) Anatomical Region Laterality Modality Lower Extremity, Ultrasound RST LOS, Ultrasound ARZ LOS, Pranav ateral Ultrasound Ultrasound FLA LOS Specimen (Source) Anatomical Collection Method Collection Time Re ceived Time Location / / Volume Laterality 11/12/2020 9:35 PM CDT Impressions 11/13/2020 7:42 AM CDT Negative for acute DVT. Narrative 11/13/2020 7:42 AM CDT EXAM: US LOWER EXTREMITY VEINS BILATERAL Exam performed with color and spectral D oppler analysis. COMPARISON: None. FINDINGS: Modified COVID-19 protocol was performed. The common femoral, upper deep femoral, femoral and popliteal veins are widely patent bilaterally, without thrombus. 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 The posterior tibial and p eroneal veins were segmentally visualized bilaterally and are normal wh ere seen. Procedure Note Herb Hodges M.D. - 11/13/2020Format ting of this note might be different from the original. EXAM: US LOWER EXTREMITY VEINS BILATERAL Exam performed with color and spectral D oppler analysis. COMPARISON: None. FINDINGS: Modified COVID-19 protocol was performed. The common femoral, upper deep femoral, femoral and popliteal veins are widely patent bilaterally, without thrombus. 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 The posterior tibial and p eroneal veins were segmentally visualized bilaterally and are normal wh ere seen. IMPRESSION: Negative for acute DVT. Kevin Bradford M.D. IMG US PROCEDURES Bacteria / Rimma Culture, Blood (11/12/2020 7:41 PM CDT) [facility] gist Method Time Signature Bacteria/Negar No growth 11/17/2020 DTL da Culture, after 5 9:02 PM CDT Blood days of incubation. Specimen (Source) Anatomical Collection Method Collection Time Re ceived Time Location / / Volume Laterality Blood (Blood, 11/12/2020 7:41 11/12/2020 8:07 Peripheral Draw) PM CDT PM CDT Comment: Specimen Source Site: Blood Kevin Bradford M.D. LAB MICROBIOLOGY - GENERAL O RDERABLES Performing Organization Address City/[facility] Phon e Number [facility] - [address] [place], [place] [address] [place] [id number] [place] [address] Phosphorus Inorganic (11/12/2020 7:40 PM CDT) athologist Signature Phosphorus 3.4 2.5 - 4.5 11/12/2020 DTL (Inorganic), S mg/dL 9:42 PM CDT Specimen Anatomical Collection Method Collection Time Receive d Time (Source) Location / / Volume Laterality Blood (Blood, 11/12/2020 7:40 PM 11/13/19 9:17 Venous) CDT PM CDT Kevin Bradford M.D. LAB BLOOD ADD-ON Performing Organization Address City/[facility] Phon e Number [facility] - [address] [place], [place] [address] [place] [address] Laboratories71 [address] (ABNORMAL) Magnesium (11/12/2020 7:40 PM CDT) P athologist Signature Magnesium, S 2.5 (H) 1.7 - 2.3 11/12/2020 DTL mg/dL 9:42 PM CDT Specimen Anatomical Collection Method Collection Time Receive d Time (Source) Location / / Volume Laterality Blood (Blood, 11/12/2020 7:40 PM 11/13/19 21 9:17 Venous) CDT PM CDT Kevin Bradford M.D. LAB BLOOD ADD-ON Performing Organization Address City/[facility]/ZIP Code Phon e Number [facility] - [address] [place], [place] [address] [place] [id number] [place] [address] (ABNORMAL) Sedimentation Rate (11/12/2020 7:40 PM CDT) [facility] gist Method Time Signature Sedimentation 40 (H) 2 - 20 11/12/2020 DTL Rate, B mm/h 9:07 PM CDT Specimen Anatomical Collection Method Collection Time Receive d Time (Source) Location / / Volume Laterality Blood (Blood, 11/12/2020 7:40 PM 11/13/19 21 8:09 Venous) CDT PM CDT Kevin Bradford M.D. LAB BLOOD ADD-ON Performing Organization Address [facility]/ZIP [facility] [place], [place] Phon e Number [facility] - [address] [place] [address] [address] [facility] [place] [address] Ferritin (11/12/2020 7:40 PM CDT) P athologist Signature Ferritin, S 248 24 - 336 11/12/2020 DTL mcg/L 9:30 PM CDT Specimen Anatomical Collection Method Collection Time Receive d Time (Source) Location / / Volume Laterality Blood (Blood, 11/12/2020 7:40 PM 11/13/19 21 8:28 Venous) CDT PM CDT Kevin Bradford M.D. LAB BLOOD ADD-ON Performing Organization Address City/[facility]/ZIP [facility] [place] [place] Phon e Number [facility] - [address] [place], [place] [address] [address] [place] [address] Type and Screen (with reflex Antibody ID) (11/12/2020 7:40 PM CDT) [facility] gist Method Time Signature ABORh O Pos Not 11/12/2020 STRM applicable 8:17 PM CDT Antibody Negative Negative 11/12/2020 STRM Screen 8:31 PM CDT Type & Screen 11/15/2020 11/12/2020 STRM Expiration 23:59 8:17 PM CDT Testing [employer] DEFAULT 11/12/2020 STRM Location 7:51 PM CDT Specimen Anatomical Collection Method Collection Time Receive d Time (Source) Location / / Volume Laterality Blood (Blood, 11/12/2020 7:40 PM 11/13/19 7:51 Venous) CDT PM CDT Kevin Bradford M.D. LAB BLOOD BANK TEST ORDERABL ES Performing Organization Address City/[facility] Phon e Number [facility] - [address] [place], [place] [address] [facility] [place] [address] [facility] 200 [facility] Prothrombin Time (PT) (11/12/2020 7:40 PM CDT) P athologist Signature Prothrombin 10.6 9.4 - 12.5 11/12/2020 DTL Time, P sec 9:23 PM CDT INR 1.0 0.9 - 1.1 11/12/2020 DTL 9:23 PM CDT Comment: ----ADDITIONAL INFORMATION---- Standard intensity warfarin therapeutic range: 2.0 to 3.0 ?? High intensity warfarin therapeutic rang e: 2.5 to 3.5 Specimen Anatomical Collection Method Collection Time Receive d Time (Source) Location / / Volume Laterality Blood (Blood, 11/12/2020 7:40 PM 11/13/19 8:28 Venous) CDT PM CDT Kevin Bradford M.D. LAB BLOOD ADD-ON Performing Organization Address City/[facility] Phon e Number [facility] - [address] [place], [place] [address] [facility] [place] [address] [facility] 200 [facility] Lactate (11/12/2020 7:40 PM CDT) P athologist Signature Lactate, P 1.5 0.5 - 2.2 11/12/2020 DTL mmol/L 8:55 PM CDT Specimen Anatomical Collection Method Collection Time Receive d Time (Source) Location / / Volume Laterality Blood (Blood, 11/12/2020 7:40 PM 05/23/20 21 8:28 Venous) CDT PM CDT Kevin Bradford M.D. LAB BLOOD NON ADD-ON Performing Organization Address City/[facility] Phon e Number [facility] - [address] [place], [place] [address] [facility] [address] Laboratories-[address] (ABNORMAL) Hepatic Function Panel (11/12/2020 7:40 PM CDT) Patholo gist Method Time Signature Bilirubin, Total, S 0.3 <=1.2 11/12/2020 DTL mg/dL 9:07 PM CDT Bilirubin, Direct, S <0.2 0.0 - 0.3 11/12/2020 DTL mg/dL 9:07 PM CDT Aspartate 22 8 - 48 11/12/2020 DTL Aminotransferase U/L 9:07 PM CDT (AST), S Alanine 21 7 - 55 11/12/2020 DTL Aminotransferase U/L 9:07 PM CDT (ALT), S Alkaline 102 40 - 129 11/12/2020 DTL Phosphatase, S U/L 9:07 PM CDT Albumin, S 4.1 3.5 - 5.0 11/12/2020 DTL g/dL 9:07 PM CDT Protein, Total, S 6.0 (L) 6.3 - 7.9 11/12/2020 DTL g/dL 9:07 PM CDT Specimen Anatomical Collection Method Collection Time Receive d Time (Source) Location / / Volume Laterality Blood (Blood, 11/12/2020 7:40 PM 11/13/19 8:28 Venous) CDT PM CDT Kevin Bradford M.D. LAB BLOOD ADD-ON Performing Organization Address City/[facility] Code Phon e Number [facility] - [address] [place], [place] [address] [address] [facility] [place], [place] [id number] [place] [address] (ABNORMAL) Fibrinogen (11/12/2020 7:40 PM CDT) P athologist Signature Fibrinogen, P 448 (H) 200 - 393 11/12/2020 DTL mg/dL 9:23 PM CDT Specimen Anatomical Collection Method Collection Time Receive d Time (Source) Location / / Volume Laterality Blood (Blood, 11/12/2020 7:40 PM 11/13/19 21 8:28 Venous) CDT PM CDT Kevin Bradford M.D. LAB BLOOD ADD-ON Performing Organization Address City/[facility] Code Phon e Number [facility] - [address] [place], [place] [address] [place] [address] [place], [place] [id number] [place] [address] [facility] (ABNORMAL) D-Dimer (11/12/2020 7:40 PM CDT) P athologist Signature D-Dimer, P 681 (H) <=500 ng/mL 11/12/2020 DTL FEU 9:23 PM CDT Comment: D-dimer concentrations increase with age . ??For DVT/PE exclusion, in addition to clinical pre-test probabi lity, age-adjusted D-dimer cut-offs are suggested for patients >50 years old. For additional information refer to the D-dimer assay i n the Laboratory Test Catalog (LTC) and/or [employer] ([place]US[place]NA) . ----ADDITIONAL INFORMATION---- D-dimer values less than or equal to 500 ng/mL fibrinogen equivalent units (FEU) may be used in co njunction with clinical pre-test probability to exclude deep vein thrombosis (DVT) and/or pulmonary emboli sm (PE). Specimen Anatomical Collection Method Collection Time Receive d Time (Source) Location / / Volume Laterality Blood (Blood, 11/12/2020 7:40 PM 11/13/19 21 8:28 Venous) CDT PM CDT Kevin Bradford M.D. LAB BLOOD ADD-ON Performing Organization Address City/[facility] Code Phon e Number [facility] - [address] [place], [place] [address] [address] [facility] [address] [facility] 200 [facility] CRP (C-Reactive Protein) (11/12/2020 7:40 PM CDT) P athologist Signature C-Reactive 5.5 <=8.0 mg/L 11/12/2020 DTL Protein (CRP), 9:06 PM CDT S Specimen Anatomical Collection Method Collection Time Receive d Time (Source) Location / / Volume Laterality Blood (Blood, 11/12/2020 7:40 PM 11/13/19 8:28 Venous) CDT PM CDT Kevin Bradford M.D. LAB BLOOD ADD-ON Performing Organization Address City/State/ZIP Code Phon e Number [facility] - [address] [place], [place] [address] [facility] [address] [facility] 200 [facility] (ABNORMAL) CBC with Differential, Blood (11/12/2020 7:40 PM CDT) [facility] Method Time Signature Hemoglobin 8.9 (L) 13.2 - 11/12/2020 DTL 16.6 g/dL 8:15 PM CDT Hematocrit 26.5 (L) 38.3 - 11/12/2020 DTL 48.6 % 8:15 PM CDT Erythrocytes 2.90 (L) 4.35 - 11/12/2020 DTL 5.65 8:15 PM CDT x10(12)/L MCV 91.4 78.2 - 11/12/2020 DTL 97.9 fL 8:15 PM CDT RBC Distrib Width 12.8 11.8 - 11/12/2020 DTL 14.5 % 8:15 PM CDT Platelet Count 232 135 - 317 11/12/2020 DTL x10(9)/L 8:15 PM CDT Leukocytes 4.4 3.4 - 9.6 11/12/2020 DTL x10(9)/L 8:15 PM CDT Neutrophils 4.13 1.56 - 11/12/2020 DTL 6.45 8:15 PM CDT x10(9)/L Lymphocytes 0.14 (L) 0.95 - 11/12/2020 DTL 3.07 8:15 PM CDT x10(9)/L Monocytes 0.11 (L) 0.26 - 11/12/2020 DTL 0.81 8:15 PM CDT x10(9)/L Eosinophils <0.03 0.03 - 11/12/2020 DTL 0.48 8:15 PM CDT x10(9)/L Basophils <0.03 0.01 - 11/12/2020 DTL 0.08 8:15 PM CDT x10(9)/L Specimen Anatomical Collection Method Collection Time Receive d Time (Source) Location / / Volume Laterality Blood (Blood, 11/12/2020 7:40 PM 11/13/19 8:09 Venous) CDT PM CDT Kevin Bradford M.D. LAB BLOOD ADD-ON Performing Organization Address City/State/ZIP Code Phon e Number [facility] - [address] [place], [place] [address] [facility] [place] [address] [facility] [address] (ABNORMAL) Basic Metabolic Panel (11/12/2020 7:40 PM CDT) Analysis Performed At Patho logist Time Signature Potassium, S 3.8 3.6 - 5.2 11/12/2020 DTL mmol/L 9:07 PM CDT Sodium, S 133 (L) 135 - 145 11/12/2020 DTL mmol/L 9:07 PM CDT Chloride, S 95 (L) 98 - 107 11/12/2020 DTL mmol/L 9:07 PM CDT Bicarbonate, S 21 (L) 22 - 29 11/12/2020 DTL mmol/L 9:07 PM CDT Anion Gap 17 (H) 7 - 15 11/12/2020 DTL 9:07 PM CDT BUN (Blood Urea 65 (H) 8 - 24 11/12/2020 DTL Nitrogen), S mg/dL 9:07 PM CDT Creatinine 3.75 (H) 0.74 - 11/12/2020 DTL 1.35 mg/dL 9:07 PM CDT eGFR-Non 16 (L) >=60 11/12/2020 DTL Black/ mL/min/BSA 9:07 PM CDT [place] Comment: ----ADDITIONAL INFORMATION---- Estimated GFR calculated using the 2009 CKD_EPI creatinine equation. eGFR-Black/ 18 (L) >=60 mL/min/BSA 2020 9:07 PM CDT DTL Comment: ----ADDITIONAL INFORMATION---- Estimated GFR calculated using the 2009 CKD_EPI creatinine equation. Calcium, Total, S 8.5 (L) 8.8 - 10.2 mg/dL 11/12/2020 9:07 PM CDT DTL Glucose, S 153 (H) 70 - 140 mg/dL 11/12/2020 9:07 PM CDT D TL Specimen Anatomical Collection Method Collection Time Receive d Time (Source) Location / / Volume Laterality Blood (Blood, 11/12/2020 7:40 PM 11/13/19 8:28 Venous) CDT PM CDT Kevin Bradford M.D. LAB BLOOD ADD-ON Performing Organization Address City/[facility] Phon e Number [facility] - [address] [place], [place] [address] [place] [address] Laboratories-[address] (ABNORMAL) APTT (Activated Partial Thromboplastin Time) (11/12/2020 7:40 PM CDT) P athologist Signature Activated 21 (L) 25 - 37 11/12/2020 DTL Partial sec 9:23 PM CDT Thrombopl Time, P Specimen Anatomical Collection Method Collection Time Receive d Time (Source) Location / / Volume Laterality Blood (Blood, 11/12/2020 7:40 PM 11/13/19 8:28 Venous) CDT PM CDT Kevin Bradford M.D. LAB BLOOD ADD-ON Performing Organization Address City/[facility]/ZIP [facility] [place] [place] Phon e Number [facility] - [address] [place], [place] [address] [place] [address] [facility]-[address] ECG 12 Lead (11/12/2020 7:37 PM CDT) P athologist Signature Ventricular Rate 66 BPM MUSE ECG/Min IN Interval 178 ms MUSE QRSD Interval 94 ms MUSE QT Interval 448 ms MUSE QTC Interval 469 ms MUSE P [place] 71 degrees MUSE R [place] -5 degrees MUSE T Wave [place] 44 degrees MUSE Specimen Anatomical Collection Method Collection Time Receive d Time (Source) Location / / Volume Laterality 11/12/2020 7:37 PM 7:45 CDT PM CDT Impressions MUSE - 11/12/2020 7:45 PM CDT Normal sinus rhythm Normal ECG When compared with ECG of 12-NOV-2020 15 :03, No significant change was found Reviewed by SHERYL Holland Narrative This result has an attachment that is no t available. Procedure Note Jak White M.D. - 11/12/2020Formatt ing of this note might be different from the original. IMPRESSION: Normal sinus rhythm Normal ECG When compared with ECG of 12-NOV-2020 15 :03, No significant change was found Reviewed by SHERYL Holland Kevin Bradford M.D. ECG ORDERABLES Performing Organization Address City/[facility] Code Phon e Number MUSE MUSE NA (ABNORMAL) Troponin T, 2H/6H, 5th Gen (11/12/2020 5:08 PM CDT) [facility] Method Time Signature Troponin T, 2 31 (H) <=15 ng/L 11/12/2020 [facility] hr, 5th gen 5:31 PM CDT 2H Delta 0 ng/L 11/12/2020 [facility] 5:31 PM CDT 2H Delta Not Changing 11/12/2020 [facility] Interp 5:31 PM CDT Troponin T, 6 CANCELED ng/L 11/12/2020 [facility] hr, 5th gen 5:31 PM CDT Comment: Result canceled by the sukumar y. Specimen Anatomical Collection Method Collection Time Receive d Time (Source) Location / / Volume Laterality Blood (Blood, 11/12/2020 5:08 PM 11/13/19 5:13 Venous) CDT PM CDT Narrative [facility] [employer] [facility] - 11/12/2020 5:31 PM CDT Specimen Information: Specimen ID: [id number] Specimen Type: Blood Specimen Collection Start Date: 11/13/19 ??5:08 PM Specimen Received Date: 11/12/2020 ??5:1 3 PM Specimen ID: [id number] Specimen Type: Blood Specimen Collection Start Date: 11/13/19 ??5:30 PM Specimen Received Date: 11/12/2020 ??5:3 0 PM Natasha Rolle M.D., M.P.H. LAB BLOOD TROPONIN Performing Organization Address City/State/ZIP Code Phon e Number [facility] - [address] [place], [place] [address] [facility] [place] [address] [facility] 200 [facility] DX Chest Portable 1 View (11/12/2020 3:35 PM CDT) Anatomical Region Laterality Modality Chest, Thoracic RST LOS, Thoracic ARZ LOS, Thoracic N/A Digital Radiography FLA LOS Specimen (Source) Anatomical Collection Method Collection Time Re ceived Time Location / / Volume Laterality 11/12/2020 3:36 PM CDT Impressions 11/12/2020 3:39 PM CDT Compared to 08/28/2020. No airspace opacity or consolidation. Mild aortic calcification. Old healed right c lavicle fracture. Postoperative changes distal left clavicle. Narrative 11/12/2020 3:39 PM CDT EXAM: ??DX CHEST PORTABLE 1 VIEW Procedure Note Joey Smith M.D. - 11/12/2020Form atting of this note might be different from the original. EXAM: DX CHEST PORTABLE 1 VIEW IMPRESSION: Compared to 08/28/2020. No airspace opac ity or consolidation. Mild aortic calcification. Old healed right c lavicle fracture. Postoperative changes distal left clavicle. Natasha Rolle M.D., M.P.H. IMG DIAGNOSTIC IMAGING IN OCEDURES Fibrinogen (11/12/2020 3:09 PM CDT) athologist Signature Fibrinogen, P 369 200 - 393 11/12/2020 STMA mg/dL 3:25 PM CDT Specimen Anatomical Collection Method Collection Time Receive d Time (Source) Location / / Volume Laterality Blood (Blood, 11/12/2020 3:09 PM 11/13/19 3:15 Venous) CDT PM CDT Natasha Rolle M.D., M.P.H. LAB BLOOD ADD-ON Performing Organization Address City/State/ZIP Code Phon e Number [facility] - [address] [place], [place] [address] [facility] [place] [address] Laboratories-[address] (ABNORMAL) D-Dimer (11/12/2020 3:09 PM CDT) athologist Signature D-Dimer, P 706 (H) <=500 ng/mL 11/12/2020 [facility] FEU 3:26 PM CDT Comment: D-dimer concentrations increase with age . ??For DVT/PE exclusion, in addition to clinical pre-test probabi lity, age-adjusted D-dimer cut-offs are suggested for patients >50 years old. For additional information refer to the D-dimer assay i n the Laboratory Test Catalog (LTC) and/or [employer] (SUSANNA) . ----ADDITIONAL INFORMATION---- D-dimer values less than or equal to 500 ng/mL fibrinogen equivalent units (FEU) may be used in co njunction with clinical pre-test probability to exclude deep vein thrombosis (DVT) and/or pulmonary emboli sm (PE). Specimen Anatomical Collection Method Collection Time Receive d Time (Source) Location / / Volume Laterality Blood (Blood, 11/12/2020 3:09 PM 11/13/19 3:15 Venous) CDT PM CDT Natasha Rolle M.D., M.P.H. LAB BLOOD ADD-ON Performing Organization Address City/[facility] Code Phon e Number [facility] - [address] [place], [place] [address] [place] [address] [place] [address] (ABNORMAL) Troponin T, Baseline, 5th gen (11/12/2020 3:09 PM CDT) P athologist Signature Troponin T, 31 (H) <=15 ng/L 11/12/2020 [facility] Baseline, 5th 3:37 PM CDT gen Specimen Anatomical Collection Method Collection Time Receive d Time (Source) Location / / Volume Laterality Blood (Blood, 11/12/2020 3:09 PM 11/13/19 3:16 Venous) CDT PM CDT Natasha Rolle M.D., M.P.H. LAB BLOOD TROPONIN Performing Organization Address [facility] Phon e Number [facility] - [address] [place], [place] [address] [place] [address] [place] [address] Lipase (11/12/2020 3:09 PM CDT) athologist Signature Lipase, S 17 13 - 60 U/L 11/12/2020 3:53 DTL PM CDT Specimen Anatomical Collection Method Collection Time Receive d Time (Source) Location / / Volume Laterality Blood (Blood, 11/12/2020 3:09 PM 11/13/19 3:22 Venous) CDT PM CDT Natasha Rolle M.D., M.P.H. LAB BLOOD ADD-ON Performing Organization Address City/[facility] Phon e Number [facility] - [address] [place], [place] [address] [facility] [place] [address] [facility] 200 [facility] Prothrombin Time (PT) (11/12/2020 3:09 PM CDT) athologist Signature Prothrombin 10.7 9.4 - 12.5 11/12/2020 [facility] Time, P sec 3:25 PM CDT INR 1.0 0.9 - 1.1 11/12/2020 [facility] 3:25 PM CDT Comment: ----ADDITIONAL INFORMATION---- Standard intensity warfarin therapeutic range: 2.0 to 3.0 ?? High intensity warfarin therapeutic rang e: 2.5 to 3.5 Specimen Anatomical Collection Method Collection Time Receive d Time (Source) Location / / Volume Laterality Blood (Blood, 11/12/2020 3:09 PM 11/13/19 3:15 Venous) CDT PM CDT Natasha Rolle M.D., M.P.H. LAB BLOOD ADD-ON Performing Organization Address City/[facility] Code Phon e Number [facility] - [address] [place], [place] [address] [facility] [place] [address] [facility] 200 [facility] (ABNORMAL) NT-Pro B-Type Natriuretic Peptide (BNP) (11/12/2020 3:09 PM CDT) athologist Signature NT-Pro BNP 880 (H) 5 - 89 11/12/2020 [facility] pg/mL 3:40 PM CDT Comment: NT-proBNP values less than 300 pg/mL hav e a 99% negative predictive value for excluding acute congestive heart jennifer lure. A cutoff of 1200 pg/mL for patients with an eGFR<60 yields a diagno stic sensitivity and specificity of 89% and 72% for acute congestive heart f ailure. ??A diagnostic NT-proBNP cutoff of 900 pg/mL has been suggested i n adults 50-75 years of age in the absence of renal failure. Specimen Anatomical Collection Method Collection Time Receive d Time (Source) Location / / Volume Laterality Blood (Blood, 11/12/2020 3:09 PM 11/13/19 21 3:15 Venous) CDT PM CDT Natasha Rolle M.D., M.P.H. LAB BLOOD ADD-ON Performing Organization Address [facility] Phon e Number [facility] - 200 [place], [place] [address] [facility] [place] [address] CRP (C-Reactive Protein) (11/12/2020 3:09 PM CDT) P athologist Signature C-Reactive 5.3 <=8.0 mg/L 11/12/2020 DTL Protein (CRP), 3:53 PM CDT S Specimen Anatomical Collection Method Collection Time Receive d Time (Source) Location / / Volume Laterality Blood (Blood, 11/12/2020 3:09 PM 11/13/19 21 3:22 Venous) CDT PM CDT Natasha Rolle M.D., M.P.H. LAB BLOOD ADD-ON Performing Organization Address City/[facility] Code Phon e Number [facility] - [address] [place], [place] [address] [facility] [place] [address] (ABNORMAL) Sedimentation Rate (11/12/2020 3:09 PM CDT) Patholo gist Method Time Signature Sedimentation 40 (H) 2 - 20 11/12/2020 DTL Rate, B mm/h 4:01 PM CDT Specimen Anatomical Collection Method Collection Time Receive d Time (Source) Location / / Volume Laterality Blood (Blood, 11/12/2020 3:09 PM 11/13/19 21 3:24 Venous) CDT PM CDT Natasha Rolle M.D., M.P.H. LAB BLOOD ADD-ON Performing Organization Address City/[facility] Phon e Number [facility] - [address] [place], [place] [address] [place] [address] [place], [place] [id number] [place] [address] (ABNORMAL) Hepatic Function Panel (11/12/2020 3:09 PM CDT) Patholo gist Method Time Signature Bilirubin, Total, S 0.3 <=1.2 11/12/2020 DTL mg/dL 3:53 PM CDT Bilirubin, Direct, S <0.2 0.0 - 0.3 11/12/2020 DTL mg/dL 3:53 PM CDT Aspartate 20 8 - 48 11/12/2020 DTL Aminotransferase U/L 3:53 PM CDT (AST), S Alanine 18 7 - 55 11/12/2020 DTL Aminotransferase U/L 3:53 PM CDT (ALT), S Alkaline 99 40 - 129 11/12/2020 DTL Phosphatase, S U/L 3:53 PM CDT Albumin, S 3.9 3.5 - 5.0 11/12/2020 DTL g/dL 3:53 PM CDT Protein, Total, S 5.7 (L) 6.3 - 7.9 11/12/2020 DTL g/dL 3:53 PM CDT Specimen Anatomical Collection Method Collection Time Receive d Time (Source) Location / / Volume Laterality Blood (Blood, 11/12/2020 3:09 PM 11/13/19 3:22 Venous) CDT PM CDT Natasha Rolle M.D., M.P.H. LAB BLOOD ADD-ON Performing Organization Address City/[facility] Code Phon e Number [facility] - [address] [place], [place] [address] [facility] [address] (ABNORMAL) Basic Metabolic Panel (11/12/2020 3:09 PM CDT) Analysis Performed At Patho logist Time Signature Potassium, P 4.2 3.6 - 5.2 11/12/2020 [facility] mmol/L 3:34 PM CDT Sodium, P 128 (L) 135 - 145 11/12/2020 [facility] mmol/L 3:34 PM CDT Chloride, P 93 (L) 98 - 107 11/12/2020 [facility] mmol/L 3:34 PM CDT Bicarbonate, P 25 22 - 29 11/12/2020 [facility] mmol/L 3:34 PM CDT Anion Gap, P 10 7 - 15 11/12/2020 [facility] 3:34 PM CDT BUN (Blood Urea 69 (H) 8 - 24 11/12/2020 [facility] Nitrogen), P mg/dL 3:34 PM CDT Creatinine 3.76 (H) 0.74 - 11/12/2020 [facility] 1.35 mg/dL 3:34 PM CDT eGFR-Black/Afri 18 (L) >=60 11/12/2020 [facility] can [place] mL/min/BSA 3:34 PM CDT Comment: ----ADDITIONAL INFORMATION---- Estimated GFR calculated using the 2009 CKD_EPI creatinine equation. eGFR Non-Black/ 16 (L) >=60 mL/min/BSA 11/12/2020 3:34 PM CDT [facility] [place] Comment: ----ADDITIONAL INFORMATION---- Estimated GFR calculated using the 2009 CKD_EPI creatinine equation. Calcium, Total, P 8.7 (L) 8.8 - 10.2 mg/dL 11/12/2020 3:34 PM CDT [facility] Glucose, P 188 (H) 70 - 140 mg/dL 11/12/2020 3:34 PM CDT S TMA Specimen Anatomical Collection Method Collection Time Receive d Time (Source) Location / / Volume Laterality Blood (Blood, 11/12/2020 3:09 PM 11/13/19 3:16 Venous) CDT PM CDT Natasha Rolle M.D., M.P.H. LAB BLOOD ADD-ON Performing Organization Address City/State/ZIP Code Phon e Number [facility] - [address] [place], [place] [address] [place] [address] [facility] [address] (ABNORMAL) CBC with Differential, Blood (11/12/2020 3:09 PM CDT) [facility] Method Time Signature Hemoglobin 8.7 (L) 13.2 - 11/12/2020 [facility] 16.6 g/dL 3:25 PM CDT Hematocrit 26.0 (L) 38.3 - 11/12/2020 [facility] 48.6 % 3:25 PM CDT Erythrocytes 2.83 (L) 4.35 - 11/12/2020 [facility] 5.65 3:25 PM CDT x10(12)/L MCV 91.9 78.2 - 11/12/2020 [facility] 97.9 fL 3:25 PM CDT RBC Distrib Width 12.7 11.8 - 11/12/2020 [facility] 14.5 % 3:25 PM CDT Platelet Count 210 135 - 317 11/12/2020 [facility] x10(9)/L 3:25 PM CDT Leukocytes 4.1 3.4 - 9.6 11/12/2020 [facility] x10(9)/L 3:25 PM CDT Neutrophils 3.50 1.56 - 11/12/2020 [facility] 6.45 3:25 PM CDT x10(9)/L Lymphocytes 0.28 (L) 0.95 - 11/12/2020 [facility] 3.07 3:25 PM CDT x10(9)/L Monocytes 0.30 0.26 - 11/12/2020 [facility] 0.81 3:25 PM CDT x10(9)/L Eosinophils <0.03 0.03 - 11/12/2020 [facility] 0.48 3:25 PM CDT x10(9)/L Basophils <0.03 0.01 - 11/12/2020 [facility] 0.08 3:25 PM CDT x10(9)/L Specimen Anatomical Collection Method Collection Time Receive d Time (Source) Location / / Volume Laterality Blood (Blood, 11/12/2020 3:09 PM 11/13/19 3:15 Venous) CDT PM CDT Natasha Rolle M.D., M.P.H. LAB BLOOD ADD-ON Performing Organization Address City/State/ZIP Code Phon e Number [facility] - [address] [place], [place] [address] [facility] [place] [address] [facility] [address] ECG 12 Lead (11/12/2020 3:03 PM CDT) P athologist Signature Ventricular Rate 73 BPM MUSE ECG/Min IN Interval 158 ms MUSE QRSD Interval 92 ms MUSE QT Interval 402 ms MUSE QTC Interval 442 ms MUSE P [place] 75 degrees MUSE R [place] 32 degrees MUSE T Wave [place] 62 degrees MUSE Specimen Anatomical Collection Method Collection Time Receive d Time (Source) Location / / Volume Laterality 11/12/2020 3:03 PM 4:26 CDT PM CDT Impressions MUSE - 11/12/2020 3:11 PM CDT Normal sinus rhythm with sinus arrhythmia Cannot rule out Inferior infarct When compared with ECG of 01-MAR-2019 10 :20, Premature atrial complexes are no longer present Reviewed by SHERYL Holland Narrative This result has an attachment that is no t available. Procedure Note aJk White M.D. - 11/12/2020Formatt ing of this note might be different from the original. IMPRESSION: Normal sinus rhythm with sinus arrhythmi a Cannot rule out Inferior infarct When compared with ECG of 01-MAR-2019 10 :20, Premature atrial complexes are no longer present Reviewed by SHERYL Holland Natasha Rolle M.D., M.P.H. ECG ORDERABLES Performing Organization Address City/State/ZIP Code Phon e Number MUSE MUSE NA documented in this encounter Visit Diagnoses Diagnosis Acute Bronchitis Due To COVID-19 - Prima ry Anemia Hyponatremia Shortness Of Breath Acute Bronchitis Due To COVID-19 Elevated D-Dimer Uncertain Significance Anemia Shortness Of Breath Elevated D-Dimer Uncertain Significance Hyponatremia documented in this encounter Admitting Diagnoses Diagnosis Acute Bronchitis Due To COVID-19 Anemia Shortness Of Breath Elevated D-Dimer Uncertain Significance Hyponatremia documented in this encounter Administered Medications Inactive Administered Medications - up to 3 most recent administrations Medication Order MAR Action Action Date Dose Rate Site aspirin chewable tablet 81 mg Given 11/13/2020 8:58 AM CDT 81 mg 81 mg, oral, Daily, First dose on Fri11/13/20 at 0900 atorvastatin tablet 10 mg (LIPITOR) Given 11/13/2020 8:57 AM CDT 10 mg 10 mg, oral, Daily, First dose on Fri11/13/20 at 0900 calcium-vitamin D3-vitamin K 650 mg-12.5 Given 11/13/2020 8:55 A M CDT 1 tablet mcg (500 Unit)-40 mcg per chewable tablet 1 tablet (VIACTIV) 1 tablet, oral, Daily, First dose on Fri11/13/20 at 0900 cholecalciferol (vitamin D3) tablet 25 m cg Given 11/13/2020 8:58 AM CDT 25 mcg 25 mcg, oral, Daily, First dose on Fri11/13/20 at 0900, cholecalciferol (vitamin D3) orderable was interchanged for cholecalciferol (vitamin D3) tablet/capsule dexamethasone (PF) injection 10 mg (DECA DRON) Given 11/12/2020 5:29 PM CDT 10 mg 10 mg, intravenous, Once, On Fri11/12/20 at 1702, For 1 dose heparin (porcine) Given 11/13/2020 6:22 AM CDT 5,000 Units Right Upper injection 5,000 Units Abdomen 5,000 Units, subcutaneous, Every 8 hours scheduled, First dose on Fri11/12/20 at 2200 Given 11/12/2020 10:14 PM CDT 5,000 Units Left Upper Abdomen ipratropium-albuteroL 0.5-2.5 mg/3 mL nebulizer Given 11/12/2020 5:06 PM CDT 3 mL solution 3 mL (DUONEB) 3 mL, nebulization, Once, On [place] 11/12/20 at 1701, For 1 dose ipratropium-albuteroL 0.5-2.5 mg/3 mL nebulizer Given 11/12/2020 5:06 PM CDT 3 mL solution 3 mL (DUONEB) 3 mL, nebulization, Once, On [place] 11/12/20 at 1701, For 1 dose ipratropium-albuteroL 0.5-2.5 mg/3 mL Given 11/13/2020 12:09 PM CDT 3 mL nebulizer solution 3 mL (DUONEB) 3 mL, nebulization, 4 times daily (RT), First dose on Fri11/12/20 at 2000 Given 11/13/2020 8:26 AM CDT 3 mL Given 11/12/2020 9:02 PM CDT 3 mL lamoTRIgine tablet 200 mg (LaMICtal) Given 11/13/2020 8:55 AM CDT 200 mg 200 mg, oral, 2 times daily, First dose on 11/12/20 at 2100 Given 11/12/2020 9:03 PM CDT 200 mg levothyroxine tablet 25 mcg (SYNTHROID, Given 11/13/2020 6:22 AM CDT 25 mcg LEVOTHROID) 25 mcg, oral, Daily before breakfast, First dose on Fri11/13/20 at 0700 mbjniwqmnbnx-wnkq-XD-Ca-minerals 400 mcg Given 11/13/2020 8:58 A M CDT 1 tablet (folic acid) tablet 1 tablet (THERAPEUTI C-M) 1 tablet, oral, Daily, First dose on Fri11/13/20 at 0900 mycophenolate tablet 500 mg (CELLCEPT) Given 11/13/2020 8:58 AM CDT 500 mg 500 mg, oral, 2 times daily, First dose on 11/12/20 at 2100, HAZARDOUS - Handle with care. Swallow whole. Do NOT crush, chew or split tablet., Continuation of xnsoy-pm-ionnaiuxo therapy? Yes Given 11/12/2020 9:02 PM CDT 500 mg NaCl 0.9 % bolus 500 mL New Bag 11/12/2020 5:46 PM CDT 500 mL 500 mL/hr 500 mL, intravenous, at 500 mL/hr, Administer over 1 Hours, Once, On 11/12/20 at 1738, For 1 dose predniSONE tablet 5 mg (DELTASONE) Given 11/13/2020 8:58 AM CDT 5 mg 5 mg, oral, Daily, First dose on Fri11/13/20 at 0900 sennosides-docusate sodium 8.6-50 mg per Given 11/13/2020 8:57 A M CDT 1 tablet tablet 1 tablet (SENOKOT-S) 1 tablet, oral, 2 times daily, First dose on 11/12/20 at 2100, Do not give if patient has diarrhea. sodium chloride 0.9 % nebulizer solution 3 mL Given 11/13/2020 12:09 PM CDT 3 mL 3 mL, nebulization, 4 times daily, First dose (after last modification) on 11/12/20 at 2100, Administer after DuoNebs and before Aerobika Given 11/13/2020 8:26 AM CDT 3 mL Given 11/12/2020 9:02 PM CDT 3 mL tacrolimus capsule 1 mg (PROGRAF) Given 11/13/2020 8:56 AM CDT 1 mg 1 mg, oral, 2 times daily, First dose on 11/12/20 at 2100 Given 11/12/2020 9:02 PM CDT 1 mg torsemide tablet 30 mg (DEMADEX) Given 11/13/2020 8:57 AM CDT 30 mg 30 mg, oral, Daily, First dose on Fri11/13/20 at 0900 ubiquinone tablet 200 mg (COENZYME Q10) Given 11/13/2020 8:55 AM CDT 200 mg 200 mg, oral, Daily, First dose (after last reorder) on Fri11/13/20 at 0900 documented in this encounter Active and Recently Administered Medications Times are shown in CDT. Scheduled Medication Order 11/11/2020 11/12/2020 11/13/2020 aspirin chewable tablet 81 mg 08 58 (Given - Provider: Blanca Hernandez RSteve) 81 mg, oral, Daily, First dose on Fri11/13/20 at 0900 atorvastatin tablet 10 mg (LIPITOR) 0857 (Given - Provider: Blanca Hernandez RSteve) 10 mg, oral, Daily, First dose on Fri11/13/20 at 0900 calcium-vitamin D3-vitamin K 650 mg-12.5 mcg (500 Unit)-40 mcg per chewable tablet 1 tablet (VIACTIV) 0855 (Given - Provider: Blanca Hernandez R.N.) 1 tablet, oral, Daily, First dose on Fri11/13/20 at 0900 cholecalciferol (vitamin D3) tablet 25 mcg 0858 (Given - Provider: Blanca Hernandez RSetve) 25 mcg, oral, Daily, First dose on Fri at 0900, cholecalciferol (vitamin D3) orderable was interchanged for cholecalciferol (vitamin D3) tablet/capsule dexamethasone (PF) injection 10 mg (DECADRON) (COMPLETED) 1729 (Given - Provider: Daily Kumar R.N.) 10 mg, intravenous, Once, On 11/12/20 at 1702, For 1 dose doxazosin tablet 4 mg (CARDURA) 0857 (Not Given - Provider: Blanca Hernandez R.N. - Reason: Patient/family refused - Comment: takes at night per patient) 4 mg, oral, Daily, First dose on Fri11/13/20 at 0900 heparin (porcine) injection 5,000 Units 2214 (Given - Provider: Kathryn Campbell R.N., C.M.S.R.N.) 0622 (Given - Provider: Kathryn Velasquez R.N., C.M.S.R.N.)1416 (Not Given - Provider: Blanca Hernandez R.N. - Reason: Patient/family refused) 5,000 Units, subcutaneous, Every 8 hours scheduled, First dose on Fri11/12/20 at 2200 ipratropium-albuteroL 0.5-2.5 mg/3 mL ne bulizer solution 3 mL (DUONEB) (COMPLETED) 170 (Given - Provider: Freeman Hays.R.T., L.R.T.) 3 mL, nebulization, Once, On Fri11/12/20 at 1701, For 1 dose ipratropium-albuteroL 0.5-2.5 mg/3 mL ne bulizer solution 3 mL (DUONEB) (COMPLETED) 170 (Given - Provider: Freeman Hays.R.T., L.R.T.) 3 mL, nebulization, Once, On Fri11/12/20 at 1701, For 1 dose ipratropium-albuteroL 0.5-2.5 mg/3 mL nebulizer solution 3 m L (DUONEB) 2102 (Given - Provider: Kathryn Campbell R.N., C.M.S.R.N.) 0826 (Given - Provider: Blanca Hernandez R.N.)1209 (Given - Provider: Blanca Hernandez R.N.)1417 (Not Given - Provider: Blanca Hernandez R.N. - Reason: Patient/family refused) 3 mL, nebulization, 4 times daily (RT), First dose on Fri 1 at 2000 lamoTRIgine tablet 200 mg (LaMICtal) 210 3 (Given - Provider: Kathryn Velasquez R.N., C.M.S.R.N.) 0855 (Given - Provider: Blanca bradley R.N.) 200 mg, oral, 2 times daily, First dose on 11/12/20 at 2100 levothyroxine tablet 25 mcg (SYNTHROID, LEVOTHROID) 0622 (Given - Provider: Kathryn Campbell R.N., C.M.S.R.N.) 25 mcg, oral, Daily before breakfast, First dose on Fri11/13/20 at 0700 loratadine tablet 10 mg (CLARITIN) 0858 (Not Given - Provider: Blanca Hernandez R.N. - Reason: Patient/family refused - Comment: takes at HS per patient) 10 mg, oral, Daily, First dose on Fri11/13/20 at 0900 montelukast tablet 10 mg (SINGULAIR) 0857 (Not Given - Provider: Blanca Hernandez R.N. - Reason: Patient/family refused - Comment: takes at HS per patient) 10 mg, oral, Daily, First dose on Fri11/13/20 at 0900 irlkbyhtzvdf-wtoe-IU-Ca-minerals 400 mcg (folic acid) tablet 1 tablet (THERAPEUTIC-M) 0858 (Given - Provid er: Blanca Hernandez R.N.) 1 tablet, oral, Daily, First dose on Fri11/13/20 at 0900 mycophenolate tablet 500 mg (CELLCEPT) 2 102 (Given - Provider: Kathryn Velasquez R.N., C.M.S.R.N.) 0858 (Given - Provider: Blanca bradley RSteve) 500 mg, oral, 2 times daily, First dose on 11/12/20 at 2100, HAZARDOUS - Handle with care. Swallow whole. Do NOT crush, chew or split tablet., Continuation of lntkf-ad-mnsyhecqr therapy? Yes NaCl 0.9 % bolus 500 mL (COMPLETED) 1746 (New Bag - Provider: Daily Kumar R.N.)1825 (Stopped - Provider: Daily M Haselkorn, R.N.) 500 mL, intravenous, at 500 mL/hr, Admin ister over 1 Hours, Once, On 11/12/20 at 1738, For 1 dose NIFEdipine XL 24 hr tablet 90 mg (PROCARDIA XL) 0855 (Not Given - Provider: Blanca Hernandez R.N. - Reason: Patient/family refused - Comment: takes at HS) 90 mg, oral, Daily, First dose on Fri at 0900, Swallow whole. Do NOT crush, chew, or split tablet. predniSONE tablet 5 mg (DELTASONE) 08 (Given - Provider: Blanca Hernandez R.N.) 5 mg, oral, Daily, First dose on Fri11/13/20 at 0900 sennosides-docusate sodium 8.6-50 mg per tablet 1 tablet (SE NOKOT-S) 2102 (Not Given - Provider: Kathryn Campbell R.N., C.M.S.R.N. - Reason: Patient/family refused) 0857 (Given - Provider: Blanca bradley RDemetriusNDemetrius) 1 tablet, oral, 2 times daily, First dos e on 11/12/20 at 2100, Do not give if patient has diarrhea. sodium chloride 0.9 % nebulizer solution 3 mL 2101 (Given - Provider: Kathryn Campbell R.N., C.M.S.R.N.) 08 (Given - Provider: Blanca bradley R.NDemetrius)1209 (Given - Provider: Blanca Hernandez R.N.) 3 mL, nebulization, 4 times daily, First dose (after last modification) on 11/12/20 at 2100, Administer after DuoNebs and before Aerobika tacrolimus capsule 1 mg (PROGRAF) 2101 ( Given - Provider: Kathryn Velasquez R.N., C.M.S.R.N.) 0856 (Given - Provider: Blanca bradley RDemetriusNDemetrius) 1 mg, oral, 2 times daily, First dose on 11/12/20 at 2100 torsemide tablet 30 mg (DEMADEX) 08 (Given - Provider: Blanca Hernandez R.N.) 30 mg, oral, Daily, First dose on Fri11/13/20 at 0900 ubiquinone tablet 200 mg (COENZYME Q10) 0855 (Given - Provider: Blanca Hernandez R.N.) 200 mg, oral, Daily, First dose (after last reorder) on 11/13 at 0900 PRN Medication Order 11/11/2020 11/12/2020 11/13/2020 acetaminophen tablet 500 mg (TYLENOL) 500 mg, oral, Every 6 hours PRN, mild pa in or score 1-3 of 10, moderate pain or score 4-6 of 10, severe pain or score 7-10 of 10, Starting on 11/12/20 at 1935 polyethylene glycol powder packet 1 packet (MIRALAX) 1 packet, oral, Daily PRN, constipation, Starting on 11/12/20 at 2007, Ordered sequence of administration: polyethylene glycol, then bisacodyl until BM achieved. Avoid mixing with starch-based thickened liquids. documented in this encounter Additional Health Concerns Infection Onset Date Last Indicated Resolved Time COVID19 10/30/2020 10/30/2020 11/19/2020 4:45 AM CDT Assessment Noted Time PHQ-9 Depression Total Score: 3 11/22/2019 7:34 AM CDT documented as of this encounter Care Teams Assistant Bookkeeper Relationship Specialty Start Date End Date Elsewhere, Pcp PCP - General Family Medicine 07/29/17 [facility] - Laboratory Medicine 04/12/20 [place] [address] documented as of this encounter
--- OUTSIDE RECORDS SUMMARY | 2022-04-13 12:19 | XMS_ITS | Encounter Summary ---
:1955 Author Organization [facility] Address [address] [place] [address] Care Team Providers Name Role Phone Elsewhere, Pcp Primary Care Provider Unavailable Reason for Visit Reason Onset Date Comments COVID-19 Remote Patient Monitoring 11/02/2020 Intake Assessment 11/02/2020 Encounter Details Date Type Department Care Team Description 11/02/2020 Remote Monitoring Remote Patient Cheyenne Kerr D-19 Remote Monitoring L, R.N. 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 - 11/02/2020 1:12 PM CDT Reason for Today's Contact: Remote Patient Monitoring COVID-19 Intake Assessment COVID-19 Symptom Onset Date: 10/30 General Health Assessment: Patient notes today that he is feeling better since diagnosed with COVID-19. Equipment Set up: RN reviewed the following items with the patient/caregiver related to Remote Patient Monitoring (RPM) program set up: Open equipment kit and follow setup instructions, test vital signs as soon as possible and at scheduled times on tablet, patient will receive a phone call with area code ([phone]) from [employer] arlynhey don't test vital signs, importance of calling RPM nurses with any symptoms prior to equipment arrival, RN phone calls are from area code ([phone]) and should be answered or call returned promptly to prevent additional calls, patient may retest vitals signs at any time if there was an error in equipment to limit phone calls from RPM RN: Yes Symptom Assessment: Home oxygen: No Recent SpO2 result: 96 Today the patient reports the following symptoms: Dyspnea: baseline SOB has had over the last year, no change from baseline Cough: Unchanged. Patient reports productive cough: Yes, with clear sputum,sometimes clear or yellow Chest Pain or chest tightness: Not present Rhinorrhea/congestion: Unchanged, does have baseline sinus issues. Currently feels the same as baseline Sore throat: Not present Fever (>100.4oF or subjective fever): No longer experiencing Patient report of date of last feverreducing medication: Tylenol for headaches - last taken on Friday Chills: Resolved Sweats: Resolved Myalgias: Not present Diarrhea: Unchanged. Patient is having diarrhea multiple times a day. Always having small amounts with each bathroom trip. Then typically will have one larger loose. Additional symptoms reported: Vomiting: Not present Abdominal pain: Not present Dizzy or lightheaded: baseline Headache: has baseline headaches, no change Fatigue: Unchanged Loss of smell: Not present Loss of taste: Not present Leg swelling:Not present - has baseline swelling, no change Patient Education: Confirmed that the patient has received and reviewed the 'RPM Program Quick Start User Guide'. The patient was given the opportunity to ask questions regarding the setup and use of the equipment. Reviewed the importance of not taking antipyretics 6 hours prior to their vital sign readings. Questions were addressed and subsequently answered. Patient verbalizes understanding that the Remote Monitoring Program is not an emergency response system, but rather a way for the care team to watch for trends in their vital signs. The patient was educated on notifying emergency personnel of their COVID-19 positive test and the need to wear a mask. Discussed using modes of self-transportation if feeling well enough instead of public transportation or ride share services. [facility] and the Center for Disease Control (CDC) require symptom monitoring and to follow isolation precautions to control the spread of COVID-19. Reinforced the importance to remain self-isolated at home until recommended by COVID-19 Care Team. If household members start to have symptoms, they should self-isolate and call the COVID Nurse line for further assessment. Plan of Care/Next Steps: Recommendation: Self-Isolation, quarantine at home Patient is currently using supportive care measures of increasing fluid intake, rest and over the counter medications. Could use Robitussin for cough, Imodium for stools if needed. Concerns/questions: Patient has no questions or concerns. Patient agrees to continue daily vital sign monitoring and follow up call scheduled. Reviewed emergency symptoms, red flags, and when to notify the healthcare team for new/worsening COVID-19 symptoms. Provided the Remote Patient Monitoring phone number for patient to contact with any questions or concerns. Patient agreed to call Remote Patient Monitoring nurse with any questions or concerns in the interim. documented in this encounter Plan of Treatment Upcoming Encounters Date Type Specialty Care Team Description 04/24/2022 Appointment Laboratory Medicine Angélcia Granger P.A.-C. [address] [place] [phone] 04/25/2022 Office Visit Otorhinolaryngology Dex Matta APRN, CDemetriusNJuan Miguel, M.S.N. [address] [place] [phone] 05/08/2022 Appointment Laboratory Medicine Angélica Granger P.A.-C. [address] [place] [phone] 05/08/2022 Clinical Admitting/Central Communication Scheduling 05/10/2022 Appointment Radiology Jeremie Rose M.D. [address] [place] [phone] 05/10/2022 Comprehensive Visit Orthopedic Surgery Warner Graves M.D. [address] [place] [phone] 05/22/2022 Appointment Laboratory Medicine Angélica Granger P.A.-C. [address] [place] [phone] 06/05/2022 Appointment Laboratory Medicine Angélica Granger P.A.-C. [address] [place] [phone] 06/19/2022 Appointment Laboratory Medicine Angélica Granger P.A.-C. [address] [place] [phone] 07/03/2022 Appointment Laboratory Medicine Angélica Granger P.A.-C. [address] [place] [phone] 07/17/2022 Appointment Laboratory Medicine Angélica Granger P.A.-C. [address] [place] [phone] 07/31/2022 Appointment Laboratory Medicine Angélica Granger P.A.-C. [address] [place] [phone] 08/14/2022 Appointment Laboratory Medicine Angélica Granger P.A.-C. [address] [place] [phone] 08/28/2022 Appointment Laboratory Medicine Angélica Granger P.A.-C. [address] [place] [phone] documented as of this encounter Visit Diagnoses Not on filedocumented in this encounter Additional Health Concerns Infection Onset Date Last Indicated Resolved Time COVID19 10/30/2020 10/30/2020 11/19/2020 4:45 AM CDT Assessment Noted Time PHQ-9 Depression Total Score: 3 11/22/2019 7:34 AM CDT documented as of this encounter Care Teams Plate Mill Hand Relationship Specialty Start Date End Date Elsewhere, Pcp PCP - General Family Medicine 07/29/17 [facility] - Laboratory Medicine 04/12/20 [place] [address] documented as of this encounter
--- OUTSIDE RECORDS SUMMARY | 2022-04-13 12:19 | XMS_ITS | Encounter Summary ---
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 Per Covid Care Frontline Team recommendations: If non urgent, appointments should either be delayedfor up to 20 days or converted to non [id number] visits. If urgent, the coordinating care team should contact us to discuss expedited return to campus procedures. 11-01-2020 documented in this encounter Plan of Treatment Upcoming Encounters Date Type Specialty Care Team Description 04/24/2022 Appointment Laboratory Medicine Angélica Granger P.A.-CDemetrius [address] [place] [phone] 04/25/2022 Office Visit Otorhinolaryngology Dex Matta APRN, C.N.P., M.S.N. [address] [place] [phone] 05/08/2022 Appointment Laboratory Medicine Angélica Granger P.A.-Janette [address] [place] [phone] 05/08/2022 Clinical Admitting/Central Communication Scheduling 05/10/2022 Appointment Radiology Jeremie Rose M.D. [address] [place] [phone] 05/10/2022 Comprehensive Visit Orthopedic Surgery Warner Graves M.D. [address] [place] [phone] 05/22/2022 Appointment Laboratory Medicine Angélica Granger P.A.-C. [address] [place] [phone] 06/05/2022 Appointment Laboratory Medicine Angélica Granger P.A.-C. [address] [place] [phone] 06/19/2022 Appointment Laboratory Medicine Angélica Granger P.A.-C. [address] [place] [phone] 07/03/2022 Appointment Laboratory Medicine Angélica Granger P.A.-C. [address] [place] [phone] 07/17/2022 Appointment Laboratory Medicine Angélica Granger P.A.-C. [address] [place] [phone] 07/31/2022 Appointment Laboratory Medicine Angélica Granger P.A.-C. [address] [place] [phone] 08/14/2022 Appointment Laboratory Medicine Angélica Granger P.A.-C. [address] [place] [phone] 08/28/2022 Appointment Laboratory Medicine Angélica Granger P.A.-C. [address] [place] [phone] documented as of this encounter Visit Diagnoses Not on filedocumented in this encounter Additional Health Concerns Infection Onset Date Last Indicated Resolved Time COVID19 10/30/2020 10/30/2020 11/19/2020 4:45 AM CDT Assessment Noted Time PHQ-9 Depression Total Score: 3 11/22/2019 7:34 AM CDT documented as of this encounter Care Teams Professor Of Public Administration Relationship Specialty Start Date End Date Elsewhere, Pcp PCP - General Family Medicine 07/29/17 [facility] - Laboratory Medicine 04/12/[address] [phone] documented as of this encounter
--- OUTSIDE RECORDS SUMMARY | 2022-04-13 12:19 | XMS_ITS | Encounter Summary ---
:1955 Author Organization [facility] Address [address] [place] [address] Care Team Providers Name Role Phone Elsewhere, Pcp Primary Care Provider Unavailable Reason for Visit Reason Onset Date Comments COVID-19 Remote Patient Monitoring 11/12/2020 Symptom Assessment 11/12/2020 Encounter Details Date Type Department Care Team Description 11/12/2020 Remote Monitoring Remote Patient Elie Pinto COVID -19 Remote Monitoring K, R.N. 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 - 11/12/2020 11:50 AM CDT Remote Patient Monitoring - RN Symptomology Call Primary reason for today's contact: COVID-19 Symptom Assessment for Date of positive COVID-19 test result: 10/30/20 Date COVID-19 symptoms began: 10/30/20 Symptom Assessment: Home oxygen: No Recent SpO2 result: 96% Today the patient reports the following symptoms: Dyspnea: unchanged past few days getting short of breath with activity , at rest breathing fine and comfortably. Cough: Worsening. Patient reports productive cough:Yes, with yellow sputum, Cough is not waking him during the nights; past 2-3 days cough is more frequent than previously; coughing to point of point of gagging at times. Reports increased amount of phlegm he is coughing up and this has been more the past 2-3 days. Coughing often through out this call. Chest Pain or chest tightness: Not present Fever (>100.4oF or subjective fever): Not present Patient report of date of last fever reducing medication: 11/11 p.m. for headache from coughing Chills: Not present Sweats: Not present Diarrhea: Not present Vomiting: Unchanged --- vomits every time he brushes his teeth makes him gag and he vomits. More so in the a.m. and other sierra does vomiting any other time Dizzy or lightheaded: Unchanged only with changing positions like when I stand up. Patient reports the following additional symptoms: Nausea that seems a bit worse again-- for the past 3-4 days constant nausea to point of really not feeling like eating much yesterday and today. States he is able to keep up with fluids and estimates he is getting at least 64 ounces for surgery. Sinus congestion dealing with that a long time and Is having allot of sinus drainage down the back of the throat especially in the a.m. and it is real thick. He notes he is in middle of work up to see about acid reflux and has upcoming tests scheduled for this. Patient Education: Patient and/or caregiver was instructed on: ?? Self-care plan - Rest; activity as tolerated pacing self; assure hydrating well; eat small amounts of food more often of easy to digest foods; symptoms to call with and when to seek emergent care. Patient/caregiver able to teach back ?? Maintain isolation from others in your home and Keep monitoring symptoms The following references were used: Nursing judgement Plan of Care/Next Steps: Endpoint recommendation: Provider Advice Patient is currently using supportive care measures of increasing fluid intake, rest and over the counter medications. Caller agreeable to plan of care: Yes Patient agrees to continue daily vital sign monitoring and follow up call scheduled. Patient agreed to call Remote Patient Monitoring nurse with any questions or concerns in the interim. ADDENDUM: Patient was contacted with recommendation from CFCT provider Dr Dia who is directing patient be seen in the ED today and patient agrees with the plan and will do so. RN has called [facility] ED ATC alerting them patient will be coming in the next couple arrives by private car. documented in this encounter Plan of Treatment Upcoming Encounters Date Type Specialty Care Team Description 04/24/2022 Appointment Laboratory Medicine Angélica Granger P.A.-C. [address] [place] [phone] 04/25/2022 Office Visit Otorhinolaryngology Dex Matta APRN, C.N.P., M.S.N. [address] [place] [phone] 05/08/2022 Appointment Laboratory Medicine Angélica Granger P.A.-C. [address] [place] [phone] 05/08/2022 Clinical Admitting/Central Communication Scheduling 05/10/2022 Appointment Radiology Jeremie Rose M.D. [address] [place] [phone] 05/10/2022 Comprehensive Visit Orthopedic Surgery Warner Graves M.D. [address] [place] [phone] 05/22/2022 Appointment Laboratory Medicine Angélica Granger P.A.-C. [address] [place] [phone] 06/05/2022 Appointment Laboratory Medicine Angélica Granger P.A.-C. [address] [place] [phone] 06/19/2022 Appointment Laboratory Medicine Angélica Granger P.A.-C. [address] [place] [phone] 07/03/2022 Appointment Laboratory Medicine Angélica Granger P.A.-C. [address] [place] [phone] 07/17/2022 Appointment Laboratory Medicine Angélica Granger P.A.-C. [address] [place] [phone] 07/31/2022 Appointment Laboratory Medicine Angélica Granger P.A.-C. [address] [place] [phone] 08/14/2022 Appointment Laboratory Medicine Angélica Granger P.A.-C. [address] [place] [phone] 08/28/2022 Appointment Laboratory Medicine Angélica Granger P.A.-C. [address] [place] [phone] documented as of this encounter Visit Diagnoses Diagnosis COVID-19 Infection documented in this encounter Additional Health Concerns Infection Onset Date Last Indicated Resolved Time COVID19 10/30/2020 10/30/2020 11/19/2020 4:45 AM CDT Assessment Noted Time PHQ-9 Depression Total Score: 3 11/22/2019 7:34 AM CDT documented as of this encounter Care Teams Final Assembler Relationship Specialty Start Date End Date Elsewhere, Pcp PCP - General Family Medicine 07/29/17 [facility] - Laboratory Medicine 04/12/[address] [address] documented as of this encounter
--- OUTSIDE RECORDS SUMMARY | 2022-04-13 12:19 | XMS_ITS | Encounter Summary ---
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 [address] [place] [phone] 05/08/2022 Appointment Laboratory Medicine Angélica Granger P.A.-CDemetrius [address] [place] [phone] 05/08/2022 Clinical Admitting/Central Communication Scheduling 05/10/2022 Appointment Radiology Jeremie Rose M.D. [address] [place] [phone] 05/10/2022 Comprehensive Visit Orthopedic Surgery Warner Graves M.D. [address] [place] [phone] 05/22/2022 Appointment Laboratory Medicine Angélica Granger P.A.-CDemetrius [address] [place] [phone] 06/05/2022 Appointment Laboratory Medicine Angélica Granger P.A.-C. [address] [place] [phone] 06/19/2022 Appointment Laboratory Medicine Angélica Granger P.A.-C. [address] [place] [phone] 07/03/2022 Appointment Laboratory Medicine Angélica Granger P.A.-C. [address] [place] [phone] 07/17/2022 Appointment Laboratory Medicine Angélica Granger P.A.-C. [address] [place] [phone] 07/31/2022 Appointment Laboratory Medicine Angélica Granger P.A.-C. [address] [place] [phone] 08/14/2022 Appointment Laboratory Medicine Angélica Granger P.A.-C. [address] [place] [phone] 08/28/2022 Appointment Laboratory Medicine Angélica Granger P.A.-C. [address] [place] [phone] documented as of this encounter Visit Diagnoses Not on filedocumented in this encounter Additional Health Concerns Infection Onset Date Last Indicated Resolved Time COVID19 10/30/2020 10/30/2020 11/19/2020 4:45 AM CDT Assessment Noted Time PHQ-9 Depression Total Score: 3 11/22/2019 7:34 AM CDT documented as of this encounter Care Teams Herpetologist Relationship Specialty Start Date End Date Elsewhere, Pcp PCP - General Family Medicine 07/29/17 [facility] - Laboratory Medicine 04/12/[address] [address] documented as of this encounter
--- OUTSIDE RECORDS SUMMARY | 2022-04-13 12:20 | XMS_ITS | Encounter Summary ---
:1955 Author Organization [facility] Address [address] [place] [address] Care Team Providers Name Role Phone Elsewhere, Pcp Primary Care Provider Unavailable Reason for Visit Transplant (Routine) - Closed Specialty Diagnoses / Procedures Referred By Contact Refer red To Contact [facility] Zofia Leyva M.D. [address] [place] [phone] Referral ID Status Reason Start Date Expiration Date Visits Requ ested Visits Authorized [id number] Closed 10/03/2020 10/03/2021 1 1 Encounter Details Date Type Department Care Team Description 10/12/2020 Virtual Visit Curt Ramos Bi polar Most Recent Episode Manic Full Remission (HCC) (Primary Dx); [facility] Moderate Or Sev ere Use Disorder (Dependence) Alcohol Remission (HCC) Transplantation and [facility] in [address] [place] [address] [place] [phone] [place] [phone] Social History Tobacco Use Types Packs/Day [...] 12/15/2021 organizations such as anglican groups, unions, fraNavitell or athletic groups, or school groups? 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 - 10/12/2020 8:30 AM CDT Psychiatry Follow up Visit Bruce Singh [address] [facility] [phone] 65 y.o. NON-FACE to FACE PHONE VISIT A phone call care discussion in the setting of the national COVID 19 pandemic was completed consistent with the [facility] institutional direction. This visit was completed by telephone call today. History of Present Illness: I interviewed the patient and reviewed the [facility] record at the time of this evaluation. He is s/p liver transplant in 2012 and is being followed for end stage renal disease not on dialysis. He reports that he is doing fairly well. He notes that the last year has been stressful due to the effectsof COVID restrictions. [place]. . He has a history of Bipolar disorder treated with Lamictal. He notes that he does not have to do yard work or snow removal. He denies any manic episodes in the last year. He recently bought a [place] motorcycle. He would like to get out and play golf but is having sinus and chest congestion issues. His sleep and a ppetite are good. His energy level is decreased. His concentration is reasonable. He denies suicidalideation. He denies any significant memory complaints. Health behaviors survey: Compliance with medications and medical care: He did forget his diuretic once in the last year but otherwise reports good compliance. Alcohol use: None Substance use: None Caregiver availability: His sister or other friends could be with him after transplant. Local psychiatric care: None Current Outpatient Medications Medication Sig Dispense Refill ??? acetaminophen (TYLENOL) 500 mg tablet Take 1 tablet by mouth every 6 (six) hours as needed. Pain. No more than 2000 mg per day. ??? albuterol (ACCUNEB) 2.5 mg /3 mL nebulizer solution Inhale 3 mL (2.5 mg total) by nebulization 2(two) times a day. 540 mL 0 ??? amoxicillin (AMOXIL) 500 mg capsule Take 4 capsules by mouth as directed. Prior to dental procedures 0 ??? aspirin (ASPIRIN CHILDRENS) 81 mg chewable tablet Chew daily. ??? atorvastatin (LIPITOR) 10 mg tablet Take 1 tablet (10 mg total) by mouth daily. 90 tablet 3 ??? budesonide (Pulmicort) 0.5 mg/2 mL nebulizer solution Mix 1 ampule in sinus irrigation bottle and irrigate twice daily. 120 mL 6 ??? budesonide (PULMICORT) 0.5 mg/2 mL nebulizer solution Add 1 respule to 8 ounces saline and irrigate each side of nose twice daily as directed. 360 mL 3 ??? calcium carb/magnesium oxid/D3 (CALCIUM MAGNESIUM + D ORAL) Take 2 tablets by mouth 2 (two) times a day. Total of 700 mg of calcium, 350 mg of magnesium, and 400 IU of vitamin D ??? cholecalciferol (VITAMIN D3) 2,000 Unit tablet Take 1 tablet by mouth daily. ??? coenzyme Q10 (CO Q-10) 200 mg capsule Take 1 capsule by mouth daily. ??? doxazosin (CARDURA) 4 mg tablet Take 1 tablet (4 mg total) by mouth daily. 90 tablet 3 ??? fluticasone propionate (FLONASE) 50 mcg/actuation nasal spray Administer 2 sprays into each nostril 2 (two) times a day. 64 g 11 ??? ipratropium (ATROVENT) 42 mcg (0.06 %) nasal spray Administer 2 sprays into affected nostril(s) 4 (four) times a day as needed for rhinitis. Maintenance ??? lamoTRIgine (LaMICtal) 200 mg tablet TAKE 1 TABLET BY MOUTH TWICE DAILY 200 tablet 3 ??? levothyroxine (SYNTHROID, LEVOTHROID) 25 mcg tablet TAKE 1 TABLET BY MOUTH EVERY MORNING 30 MINUTES BEFORE BREAKFAST 90 tablet 3 ??? loratadine (CLARITIN) 10 mg tablet Take 10 mg by mouth daily. ??? montelukast (SINGULAIR) 10 mg tablet Take 10 mg by mouth daily. ??? multivitamin tablet Take 1 tablet by mouth daily. Maintenance ??? mycophenolate (CELLCEPT) 500 mg tablet TAKE 1 TABLET BY MOUTH TWICE DAILY 180 tablet 3 ??? NIFEdipine XL (PROCARDIA XL) 30 mg 24 hr tablet Take 3 tablets (90 mg total) by mouth daily. 270tablet 3 ??? predniSONE (DELTASONE) 5 mg tablet Take 1 tablet (5 mg total) by mouth daily. 90 tablet 3 ??? sodium chloride (NEBUSAL) 3 % nebulizer solution Inhale 4 mL by nebulization 2 (two) times a day. 720 mL 0 ??? sulfamethoxazole-trimethoprim (BACTRIM DS) 800-160 mg per tablet Take 1 tablet by mouth daily. 7tablet 0 ??? tacrolimus (PROGRAF) 0.5 mg capsule Take 2 capsules (1 mg total) by mouth 2 (two) times a day. 360 capsule 3 ??? torsemide (DEMADEX) 10 mg tablet Take 3 tablets (30 mg total) by mouth daily. 270 tablet 3 No current facility-administered medications for this visit. Objective: Mental Status Examination: Appearance/behavior: He was a pleasant alert cooperative man who gave a detailed account of his history. Consciousness/orientation: He was oriented in 3 spheres. Cooperation/reliability: Cooperation and reliability were good. Mood/affect: Mood and affect were reactive and euthymic. Speech/language: Speech was normal in rate and content. Thought Form: Thought form was linear. Thought Content: No delusions. Perception: No hallucinations. Cognition/memory: Within normal limits. Attention/concentration: Within normal limits. Knowledge: Within normal limits. Abstraction: Within normal limits. Judgment: Good Insight/motivation: He was motivated for treatment. Suicidal ideation or Assaultive ideation: None DSM 5 Diagnosis ASSESSMENT / PLAN #1 Bipolar Most Recent Episode Manic Full Remission (HCC) #2 Moderate Or Severe Use Disorder (Dependence) Alcohol Remission (HCC) Plan: He continues to do well on Lamictal 400 mg daily. He denies any major mood symptoms in the last yearand continues to abstain from alcohol. We recommend that if he proceeds to kidney transplant, the team will need to monitor for any major mood changes after transplant and consult the inpatient consultation psychiatry team for further assessment. documented in this encounter Plan of Treatment Upcoming Encounters Date Type Specialty Care Team Description 04/24/2022 Appointment Laboratory Medicine Angélica Granger P.A.-CDemetrius [address] [place] [phone] 04/25/2022 Office Visit Otorhinolaryngology Dex Matta APRN, C.N.P., M.S.N. [address] [place] [phone] 05/08/2022 Appointment Laboratory Medicine Agnélica Granger P.A.-CDemetrius [address] [place] [phone] 05/08/2022 Clinical Admitting/Central Communication Scheduling 05/10/2022 Appointment Radiology Jeremie Rose M.D. [address] [place] [phone] 05/10/2022 Comprehensive Visit Orthopedic Surgery Warner Graves M.D. [address] [place] [phone] 05/22/2022 Appointment Laboratory Medicine Angélica Granger P.A.-C. [address] [place] [phone] 06/05/2022 Appointment Laboratory Medicine Angélica Granger P.A.-C. [address] [place] [phone] 06/19/2022 Appointment Laboratory Medicine Angélica Granger P.A.-C. [address] [place] [phone] 07/03/2022 Appointment Laboratory Medicine Angélica Granger P.A.-C. [address] [place] [phone] 07/17/2022 Appointment Laboratory Medicine Angélica Granger P.A.-C. [address] [place] [phone] 07/31/2022 Appointment Laboratory Medicine Angélica Granger P.A.-C. [address] [place] [phone] 08/14/2022 Appointment Laboratory Medicine Angélica Granger P.A.-C. [address] [place] [phone] 08/28/2022 Appointment Laboratory Medicine Angélica Granger P.A.-C. [address] [place] [phone] documented as of this encounter Visit Diagnoses Diagnosis Bipolar Most Recent Episode Manic Full R emission (HCC) - Primary Moderate Or Severe Use Disorder (Depende nce) Alcohol Remission (HCC) documented in this encounter Additional Health Concerns Assessment Noted Time PHQ-9 Depression Total Score: 3 11/22/2019 7:34 AM CDT documented as of this encounter Care Teams Address Change Clerk Relationship Specialty Start Date End Date Elsewhere, Pcp PCP - General Family Medicine 07/29/17 [facility] - Laboratory Medicine 04/12/20 [place] [phone] documented as of this encounter
--- OUTSIDE RECORDS SUMMARY | 2022-04-13 12:20 | XMS_ITS | Encounter Summary ---
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 - 10/13/2020 2:14 PM CDT Called Mr. Singh to discuss CT Chest findings suggestive of recurrent aspiration. Sputum culture with normal efrem and Serratia. Productive cough persist despite multiple antibiotics, steroids and bronchial hygiene. Esophagram in April, within normal limit. Currently not on PPI due to renal d ysfunction but he will discuss with nephrology again. Discussed extensively about reflux precautions including dietary modifications and early dinners. Will proceed with a formal swallow evaluation and PH impedence. Also had the opportunity to discuss with Transplant ID. documented in this encounter Plan of Treatment Upcoming Encounters Date Type Specialty Care Team Description 04/24/2022 Appointment Laboratory Medicine Angélica Granger P.A.-C. [address] [place] [phone] 04/25/2022 Office Visit Otorhinolaryngology Dex Matta APRN, C.N.P., M.S.N. [address] [place] [phone] 05/08/2022 Appointment Laboratory Medicine Angélica Granger P.A.-C. [address] [place] [phone] 05/08/2022 Clinical Admitting/Central Communication Scheduling 05/10/2022 Appointment Radiology Jeremie Rose M.D. [address] [place] [phone] 05/10/2022 Comprehensive Visit Orthopedic Surgery Warner Graves M.D. [address] [place] [phone] 05/22/2022 Appointment Laboratory Medicine Angélica Granger P.A.-C. [address] [place] [phone] 06/05/2022 Appointment Laboratory Medicine Angélica Granger P.A.-C. [address] [place] [phone] 06/19/2022 Appointment Laboratory Medicine Angélica Granger P.A.-C. [address] [place] [phone] 07/03/2022 Appointment Laboratory Medicine Angélica Granger P.A.-C. [address] [place] [phone] 07/17/2022 Appointment Laboratory Medicine Angélica Granger P.A.-C. [address] [place] [phone] 07/31/2022 Appointment Laboratory Medicine Angélica Granger P.A.-C. [address] [place] [phone] 08/14/2022 Appointment Laboratory Medicine Angélica Granger P.A.-C. [address] [place] [phone] 08/28/2022 Appointment Laboratory Medicine Angélica Granger P.A.-C. [address] [place] [address] documented as of this encounter Visit Diagnoses Not on filedocumented in this encounter Additional Health Concerns Assessment Noted Time PHQ-9 Depression Total Score: 3 11/22/2019 7:34 AM CDT documented as of this encounter Care Teams Water Pumper Relationship Specialty Start Date End Date Elsewhere, Pcp PCP - General Family Medicine 07/29/17 [facility] - Laboratory Medicine 04/12/[address] [address] documented as of this encounter
--- OUTSIDE RECORDS SUMMARY | 2022-04-13 12:20 | XMS_ITS | Encounter Summary ---
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 [address] [place] [address] Referral ID Status Reason Start Date Expiration Date Visits Requ ested Visits Authorized [id number] Closed 10/13/2020 10/13/2021 99 99 Outpatient (Routine) - Closed Specialty Diagnoses / Procedures Referred By Contact Refer red To Contact Diagnoses Cough Unspecified Type Pneumonitis Due To Inhalation Of Food And Vomit (HCC) Connie Aaron [facility] Procedures FL Swallow Function with Video and Speech or OT M.B.B.S. [address] [place] [address] Referral ID Status Reason Start Date Expiration Date Visits Requ ested Visits Authorized [id number] Closed 10/13/2020 10/13/2021 1 1 Speech Pathology (Routine) - Closed Specialty Diagnoses / Procedures Referred By Contact Refer red To Contact Diagnoses Cough Unspecified Type Pneumonitis Due To Inhalation Of Food And Vomit ([facility]) Connie Aaron [facility] Procedures BEAN SNIPPER Dysphagia evaluate and treat M.B.B.S. [address] [place], [place] [phone] Referral ID Status Reason Start Date Expiration Date Visits Requ ested Visits Authorized [id number] Closed 10/13/2020 10/13/2021 99 99 Outpatient (Routine) - Closed Specialty Diagnoses / Procedures Referred By Contact Refer red To Contact Diagnoses Cough Unspecified Type Connie Aaron [facility] Procedures Esophageal pH Testing Impedance Removal M.B.B.S. [address] [place], [place] [phone] Referral ID Status Reason Start Date Expiration Date Visits Requ ested Visits Authorized [id number] Closed 10/13/2020 10/13/2021 1 1 Outpatient (Routine) - Closed Specialty Diagnoses / Procedures Referred By Contact Refer red To Contact Diagnoses Cough Unspecified Type Connie Aaron [facility] Procedures Esophageal pH Testing M.B.B.S. [address] [place] [phone] Referral ID Status Reason Start Date Expiration Date Visits Requ ested Visits Authorized [id number] Closed 10/13/2020 10/13/2021 1 1 Outpatient (Routine) - Closed Specialty Diagnoses / Procedures Referred By Contact Refer red To Contact Diagnoses Cough Unspecified Type Connie Aaron [place] Procedures Esophageal Manometry M.B.B.S. [address] [place] [address] Referral ID Status Reason Start Date Expiration Date Visits Requ ested Visits Authorized [id number] Closed 10/13/2020 10/13/2021 1 1 Encounter Details Date Type Department Care Team Description 10/13/2020 Orders Only [facility] Connie Aaron Cough (Primary Dx); 200 [facility] Simba HernandezBDemetriusS. Pneumonitis Due To Inhalation Of Food An d Vomit ([facility]) [place], [place] 200 [facility] [phone] [place] [address] Social History Tobacco Use Types Packs/Day Years [...] at Date Recorded Male 05/16/2020 4:27 PM [employer] CO[employer] documented as of this encounter Plan of Treatment Upcoming Encounters Date Type Specialty Care Team Description 04/24/2022 Appointment Laboratory Medicine Angélica Granger P.A.-CDemetrius [address] [place] [phone] 04/25/2022 Office Visit Otorhinolaryngology Dex Matta APRN, C.N.P., M.S.N. [address] [place] [phone] 05/08/2022 Appointment Laboratory Medicine Angélica Granger P.A.-CDemetrius [address] [place] [phone] 05/08/2022 Clinical Admitting/Central Communication Scheduling 05/10/2022 Appointment Radiology Jeremie Rose M.D. [address] [place] [phone] 05/10/2022 Comprehensive Visit Orthopedic Surgery Warner Graves M.D. [address] [place] [phone] 05/22/2022 Appointment Laboratory Medicine Angélica Granger P.A.-C. [address] [place] [phone] 06/05/2022 Appointment Laboratory Medicine Angélica Granger P.A.-C. [address] [place] [phone] 06/19/2022 Appointment Laboratory Medicine Angélica Granger P.A.-C. [address] [place] [phone] 07/03/2022 Appointment Laboratory Medicine Angélica Granger P.A.-C. [address] [place] [phone] 07/17/2022 Appointment Laboratory Medicine Angélica Granger P.A.-C. [address] [place] [phone] 07/31/2022 Appointment Laboratory Medicine Angélica Granger P.A.-C. [address] [place] [phone] 08/14/2022 Appointment Laboratory Medicine Angélica Granger P.A.-C. [address] [place] [phone] 08/28/2022 Appointment Laboratory Medicine Angélica Granger P.A.-C. [address] [place] [phone] Scheduled Orders Name Type Priority Associated Diagnoses Order S chedule Esophageal pH Testing GI Routine Cough Expect ed: 10/13/2020 Impedance Removal (Approxima te), Expires: 10/14/2023 documented as of this encounter Results FL Swallow Function with [...] and recommendations. Connie Barron IMG FLUOROSCOPY PROCEDURES Esophageal pH Testing (11/22/2020 1:30 PM CDT) Narrative [employer] - 11/22/2020 1:30 PM CDT Santana Montiel M.D. ? 11/22/2020 ??3:13 PM Patient: Bruce Singh ?? [id number] Gender: Male Physician: Louie Montiel [phone] Age: ??Referred by: Zuleyka Aaron [phone] : 1955 Target Developer: Mulugeta rivero RN Height: 177.8cm Medication: Off [...] normal values in the report are from Amilcarb et al., Clinical Gastro. & Hepato. 2013. [...] pack number: MD06. Probe lot duy r: [id number]. Medications off for study, patient does not [...] study. ? Santana Montiel M.D. ?? Connie RocaSDemetrius GI PROCEDURE ORDERABLES Performing Organization Address [facility] Phon e Number [employer] NA PA ESOPH MOTILITY STUDY, PA ESOPH IMPED FUNCTION TEST (11/21/2020 3:26 PM CDT) Narrative [facility] - 11/21/2020 3:26 PM CDT Todd Corey M.D. ? 11/21/2020 ??3:27 PM Esophageal Manometry Date/Time: 11/21/2020 3:26 PM Performed by: Todd Corey M.D. Authorized by: Connie Aaron M.B.B .S. [...] sphincter function appeared normal. OVERALL IMPRESSION: #1 [place] Classification: ??Normal mano ry Todd Corey MD Connie RocaSDemetrius GI PROCEDURE ORDERABLES Performing Organization Address [facility] Phon e Number MM[facility]AL [facility]AL NA documented in this encounter Visit Diagnoses Diagnosis Cough Unspecified Type - Primary Pneumonitis Due To Inhalation Of Food An d Vomit (HCC) Cough Unspecified Type Cough Unspecified Type Pneumonitis Due To Inhalation Of Food An d Vomit (HCC) documented in this encounter Additional Health Concerns Assessment Noted Time PHQ-9 Depression Total Score: 3 11/22/2019 7:34 AM CDT documented as of this encounter Care Teams Cherry Dipper Relationship Specialty Start Date End Date Elsewhere, Pcp PCP - General Family Medicine 07/29/17 [facility] - Laboratory Medicine 04/12/[address] [address] documented as of this encounter
--- OUTSIDE RECORDS SUMMARY | 2022-04-13 12:20 | XMS_ITS | Encounter Summary ---
:1955 Author Organization [facility] Address [address] [place] [address] Care Team Providers Name Role Phone Elsewhere, Pcp Primary Care Provider Unavailable Reason for Visit Reason Comments Patient Education Encounter Details Date Type Department Care Team Description 10/31/2020 Clinical Communication Department of Stephy Mays Education Infusion Therapy in [place], [facility] [address] [place], [place] [address] [facility] [address] [address] [place], [place] [phone] (Work) [phone] Social History Tobacco Use Types Packs/Day Years [...] Date Recorded 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 - 10/31/2020 9:05 AM CDT SUBJECTIVE CHIEF COMPLAINT / REASON FOR CALL Patient Education Information Discussed Hi, my name is Angela Mays R.N. from [facility] with a recommendation that you receive a monoclonal antibody infusion for the treatment of coronavirus disease 2019 (COVID-19). This medication could be either bamlanivimab and etesevimab combination or a casirivimab and imdevimab combination. This medication has been recommended for you after review of your medical records by a multidisciplinaryphysician team. While most people do feel better in seven days, some people do develop serious respiratory complications which could lead to hospitalizations or even . You may have been told that there were no treatments at the time of diagnosis, but this is a quickly developing area and this is a new [facility] recommended treatment option for you. In the next few minutes I am going to give you more information about these medications to help you understand the possible risks and benefits of taking a monoclonal antibody infusion It is your choice to receive a monoclonal antibody infusion or stop at any time. ??? Receiving a monoclonal antibody infusion may benefit certain people with COVID-19. ??? This may decrease your risk for hospitalization by 10% to 3% ??? This may decrease the duration of your symptoms by 2 days ( from 8 days to 6 days) ??? You may be feeling well now or not that bad, however, you have been identified as someone who isat risk of developing worse symptoms, and this infusion is designed to prevent that and help you to continue feeling well. What is a monoclonal antibody infusion? These are investigational medicines used for the treatment of COVID-19, it can be used in peoplewho are: o Not in the hospital o Who do not have a new or increased oxygen requirement due to COVID-19 o Who have not tested positive for COVID-19 previously o Age 12 and older o Have mild or moderate symptoms o Weigh equal or more than 88 pounds o AND who are at high risk for developing severe COVID-19 symptoms or being hospitalized. Do you have new or increased oxygen requirement due to COVID 19? No, I do need to let you know that your vital signs will be taken on the arrival for the infusion center. If you are found to be in needof oxygen due to COVID-19 then you will not be infused with MAB rather you will be referred to an urgent care or ED for evaluation of worsening disease. Have you been previously tested and diagnosed with COVID-19? No. I need to let you know that these medications are investigational because it is still being studied.The FDA has approved the use of this medication under an EUA while data is still being collected; but early studies suggest that it reduces the risk of hospitalization. The FDA's Emergency Use Authorization (EUA) has authorized people to receive monoclonal antibody infusions for the treatment of mild COVID-19 . [facility] supports this treatment for certain people. I am sure you have heard that currently there are different variants or strands of COVID-19 that have emerged.While it is not currently possible to test your COVID swab in real time to see if you have a variant and then provide you with an infusion, we have started to review travel history to screen for patients who may need one medication or another. That being said, I need to review your travel history for the last week and known close contacts who have traveled in the last week to select the medication that would best meet your possible needs. Have you, or your close contacts, traveled outside the [place], outside or through the [facility] the [place] in the last week? No Tell your healthcare provider about all of your medical conditions, including if you: ??? Have any allergies ??? Are or plan to become ??? Are or plan to breastfeed ??? Have any serious illnesses ??? Are taking any medications (prescription, prae-zhp-smejmfy, vitamins, and herbal products) How will I receive a monoclonal antibody infusion? Monoclonal antibodies are given to you through a vein in your arm over 1-2 hours. You will be observed for 1 hour after the infusion is complete to monitor for side effects You will receive one dose of a monoclonal antibody infusion by IV infusion. What are the important possible side effects of monoclonal antibodies? The most commonly reported side effects in clinical studies have been nausea, diarrhea, dizziness, headache, itching and vomiting. Serious reactions such as allergic reactions or infusion reactions have occurred but are uncommon. Tell your health care provider right away if you have any of the following signs or symptoms of an allergic reaction: fever, chills, nausea, headache, shortness of breath, low blood pressure, wheezing, swelling of your lips face or throat, rash including hives, itching, muscle aches and dizziness. Because monoclonal antibody infusions are still being studied, not a lot of people have been given monoclonal antibody infusions yet, and it is possible that not all of the risks are known at this time. Serious and unexpected side effects may happen. Specific studies have not been conducted to address the possible risks that a monoclonal antibody infusion could interfere with your body's own ability to fight off a future infection of SARS-CoV-2 and/or whether it could reduce your body's immune response to a vaccine for SARS-CoV-2 . Talk to your healthcare provider if you have any questions including whether the risks of serious SARS-CoV-2 infection outweigh the potential risks of monoclonal antibody infusion. Patients who receive a monoclonal antibody infusion are still eligible for a COVID-19 vaccine. Patients who receive monoclonal antibody therapies are advised to delay COVID vaccination for 90 days after receiving the monoclonal therapy. Some patients have expressed concerns about disrupting their vaccine schedule by accepting the monoclonal therapy. We strongly recommend that patients offered monoclonal therapies not decline treatments due to concerns about interfering with vaccination schedules. The vaccine is not an effective treatment for an acute COVID infection but an infusion of monoclonalantibodies is and existing data shows that the risk of re- infection with COVID-19 within 90 days is low. CDC experts agree that the benefits of monoclonal therapies is greater than the risk of delaying vaccination. We wanted you to know that [facility] is encouraging you to treat the illness you have now, this will help you right away and buttermaker while still being eligible for the vaccine. Have you had a COVID-19 vaccine? Yes; if so what date? July and August; Thank you for sharing. I am still able to schedule your MAB infusion, but need to make sure you know that your next dose of the COVID-19 vaccine needs to be 90 days after your MAB infusion. I wanted to share with you that if you have completed your COVID 19 vaccine series and then test positive while being symptomatic you are eligible to receive MAB. I am happy to share with you that since april [facility] has infused over [phone] patients witha monoclonal antibody infusion across our [place] sites. I am sharing this because we have not seen any serious side effects in the patients who chose to receive the infusion. The side effects that we are seeing are similar to patients who chose not to receive the medication at all. Patients have reported to us mild fever, diarrhea, chills for a short while, and/or hives. What other treatment choices are there? Like monoclonal antibody infusions, the FDA may allow for the emergency use of other medicines to treat people with COVID-19. Go to https://www.cmnkc59gnevpgtmtipammurlvq.nih.gov/ for information on the emergency use of other medicines that are not approved by FDA to treat people with COVID- 19. Your healthcare provider may talk with you about clinical trials you may be eligible for. It is your choice to be treated or not to be treated with a monoclonal antibody infusion. Should youdecide not to receive a monoclonal antibody infusion or stop it at any time, it will not change yourstandard medical care. Are you or ? No. How do I report side effects with monoclonal antibody infusion? Tell your healthcare provider right away if you have any urgent side effects. For non-urgent side effects or side effects that bothers you or does not go away please the care team coordinating your COVID care during business hours. This may be your primary care provider, your COVID care team or your remote monitoring nurse team, which ever is applicable after emergency care, if needed, has been reached. Report side effects to FDA MedWatch at www.fda.gov/medwatch, call 0-121-GWI-4041. How can I learn more? Ask your healthcare provider ??? Visit https://www.oirwv34sjtarleaapdzxpvfqsr.nih.gov/ ??? Contact your local or state public health department Would you like to learn more about what an Emergency Use Authorization ( EUA)?Yes; [facility] has made these monoclonal antibody infusions available under an emergency access mechanism called an EUA. The EUA is supported by a [employer] of Health and Human Service (HHS) declaration that circumstances exist to justify the emergency use of drugs and biological products during the COVID-19 pandemic. What is the cost for this medication? The medication is provided to [facility] at no charge and there is not cost of the medication to you the patient. Any associated costs with the infusion will be billed to the patient's insurance company. [facility] does not want cost to be a barrier to infusion so please let us know at your infusion if youneed more information or are worried about cost being a barrier. If you are uninsured or underinsured you will still be able to receive this medication free of cost. Please know that there has been a large review by pharmacists, and this medication is not likely to interfere with any normal medication patients may be taking. This is possible as your body processes this medication differently than standard prescription medications. Given how this medication helps your body it is better to receive this medication as soon as possible if you agree to the infusion. I want to let you know that there is no known evidence that one of these medications is better or worse than another in terms of effectiveness or known risk of side effects. Please also know that the medication you will receive will be by chance based on the medication supply, infusion location, and the date of your appointment. Please know that our team is offering and will provide you this treatment for COVID-19 as part of a larger team that is coordinating your overall care. If you have continued questions after your infusion or your symptoms get worse please reach out to the team coordinating your clinical care, either a COVID-19 focused team or your primary care provider's office. If you have a patient portal please look at your messages as there may be one awaiting your review from the clinical team coordinating your care. Do you agree/consent to receive this infusion? Yes; The following education has been completed in accordance with the FDA Emergency Use Authorization (EUA) requirements: Informed patient/caregiver thatmonoclonal antibody infusions are an unapproved drug that is authorized for use under this EUA. Informed patient/caregiver of alternatives to receiving authorized monoclonal antibody infusions The Fact Sheet for Patients, Parents and Caregivers will be provided to patient/caregiver at the [facility]. Thank you for your time, I will connect with the rest of the team to let them know the results of this phone call. PLAN Disposition/Recommendation: self-care is appropriate at this time, patient encouraged to call back with questions Information/Education: patient/caller able to teach back Caller agreeable to plan of care: yes The following references were used: nursing clinical judgement and patient education resources: Monoclonal Antibody Infusion documented in this encounter Plan of Treatment Upcoming Encounters Date Type Specialty Care Team Description 04/24/2022 Appointment Laboratory Medicine Angélica Granger P.A.-C. [address] [place] [phone] 04/25/2022 Office Visit Otorhinolaryngology Dex Matta APRN, C.N.P., M.S.N. [address] [place] [phone] 05/08/2022 Appointment Laboratory Medicine Angélica Granger P.A.-C. [address] [place] [phone] 05/08/2022 Clinical Admitting/Central Communication Scheduling 05/10/2022 Appointment Radiology Jeremie Rose M.D. [address] [place] [phone] 05/10/2022 Comprehensive Visit Orthopedic Surgery Warner Graves M.D. [address] [place] [phone] 05/22/2022 Appointment Laboratory Medicine Angélica Granger P.A.-C. [address] [place] [phone] 06/05/2022 Appointment Laboratory Medicine Angélica Granger P.A.-C. [address] [place] [phone] 06/19/2022 Appointment Laboratory Medicine Angélica Granger P.A.-C. [address] [place] [phone] 07/03/2022 Appointment Laboratory Medicine Angélica Granger P.A.-C. [address] [place] [phone] 07/17/2022 Appointment Laboratory Medicine Angélica Granger P.A.-C. [address] [place] [phone] 07/31/2022 Appointment Laboratory Medicine Angélica Granger P.A.-C. [address] [place] [phone] 08/14/2022 Appointment Laboratory Angélica Royal P.A.-C. [address] [place] [phone] 08/28/2022 Appointment Laboratory Angélica Royal P.A.-C. 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
--- OUTSIDE RECORDS SUMMARY | 2022-04-13 12:20 | XMS_ITS | Encounter Summary ---
:1955 Author Organization [facility] Address [address] [place] [address] Care Team Providers Name Role Phone Elsewhere, Pcp Primary Care Provider Unavailable Reason for Visit Reason Comments External Lab Entry 10/13/2020 Encounter Details Date Type Department Care Team Description 10/13/2020 Clinical Curt Garces Transplant, [place] al Lab Entry Communication Center for Coordinator, (10/13/2020) Transplantation and R.N. 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 [address] [place] [phone] 05/08/2022 Appointment Laboratory Medicine Angélica Granger P.ADemetrius-C. [address] [place] [phone] 05/08/2022 Clinical Admitting/Central Communication Scheduling 05/10/2022 Appointment Radiology Jeremie Rose M.D. [address] [place] [phone] 05/10/2022 Comprehensive Visit Orthopedic Surgery Warner Graves M.D. [address] [place] [phone] 05/22/2022 Appointment Laboratory Medicine Angélica Granger P.A.-CDemetrius [address] [place] [phone] 06/05/2022 Appointment Laboratory Medicine Angélica Granger P.A.-C. [address] [place] [phone] 06/19/2022 Appointment Laboratory Medicine Angélica Granger P.A.-C. [address] [place] [phone] 07/03/2022 Appointment Laboratory Medicine Angélica Granger P.A.-C. [address] [place] [phone] 07/17/2022 Appointment Laboratory Medicine Angélica Granger P.A.-C. [address] [place] [phone] 07/31/2022 Appointment Laboratory Medicine Angélica Granger P.A.-C. [address] [place] [phone] 08/14/2022 Appointment Laboratory Medicine Angélica Granger P.A.-C. [address] [place] [phone] 08/28/2022 Appointment Laboratory Medicine Angélica Granger P.A.-C. [address] [place] [phone] documented as of this encounter Procedures Procedure Name Priority Date/Time Associated Diagnosis Comme nts EXTP Routine 10/13/2020 7:59 AM Results f or this TRANSPLANT/LIVER - CDT procedure are in BLOOD, EXTERNAL LAB the resu lts RESULTS section. EXTP Routine 10/13/2020 7:59 AM Results f or this TRANSPLANT/LIVER - CDT procedure are in BLOOD, EXTERNAL LAB the resu lts RESULTS section. EXTP Routine 10/13/2020 7:59 AM Results f or this TRANSPLANT/LIVER - CDT procedure are in BLOOD, EXTERNAL LAB the resu lts RESULTS section. documented in this encounter Results Transplant/Liver - Blood, External Lab Results (10/13/2020 7:59 AM CDT) athologist Signature EXT Tacrolimus Comment: <2.0 ng/mL Specimen (Source) Anatomical Collection Method Collection Time Re ceived Time Location / / Volume Laterality Blood 10/13/2020 7:59 AM CDT Narrative This result has an attachment that is no t available. Historical Provider LAB BLOOD NON ADD-ON Transplant/Liver - Blood, External Lab Results (10/13/2020 7:59 AM CDT) athologist Signature EXT Glucose 119 EXT BUN (Blood 54 Urea Nitrogen) EXT Creatinine 3.49 mg/dL EXT Sodium 136 mmol/L EXT Potassium 3.8 EXT Alkaline 92 Phosphatase EXT AST 23 EXT ALT 18 EXT Bilirubin, 0.4 mg/dL Total Specimen (Source) Anatomical Collection Method Collection Time Re ceived Time Location / / Volume Laterality Blood 10/13/2020 7:59 AM CDT Narrative This result has an attachment that is no t available. Historical Provider LAB BLOOD NON ADD-ON Transplant/Liver - Blood, External Lab Results (10/13/2020 7:59 AM CDT) athologist Signature EXT Leukocytes 3.2 EXT Absolute 1.8 Neutrophils EXT Hemoglobin 8.9 EXT Hematocrit 27.7 EXT Platelet 182 Count Specimen (Source) Anatomical Collection Method Collection Time Re ceived Time Location / / Volume Laterality Blood 10/13/2020 7:59 AM CDT Narrative This result has an attachment that is no t available. 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
--- OUTSIDE RECORDS SUMMARY | 2022-04-13 12:20 | XMS_ITS | Encounter Summary ---
:1955 Author Organization [facility] Address [address] [place] [address] Care Team Providers Name Role Phone Elsewhere, Pcp Primary Care Provider Unavailable Encounter Details Date Type Department Care Team Description 10/30/2020 Virtual Visit Department of A[place]Kavita [place] [address] Infection Community Internal Sada Azevedo, M.P. H. 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 - 10/30/2020 3:17 PM CDT Images from the original note were not included. TELEPHONE COMMUNICATION NOTE This was a telephone notification to Mr. Singh to notify them that their PCR test for SARS-CoV-2 (the virus that causes COVID-19) has returned positive. The patient was interviewed, but not personally examined. Thresher Broomcorn: no Currently Mr. Singh has the following symptoms: none. He has had fatigue for 3 weeks, and has had chronic pulmonary symptoms for the past year. He completed his vaccine series in August and had a negative COVID test in August. Mr. Singh has the following risk factors for severe infection: liver transplant Additional household members: ; MASS Score: RESULTS Microbiology Results (last 10 days) Procedure Component Value - Date/Time SARS CoV-2 RNA, PCR, Varies Asymptomatic [[id number]] (Abnormal) Collected: 10/30/20 1115 Lab Status: Final result Specimen: Varies from Nasopharynx Updated: 10/30/20 1510 SARS CoV-2 RNA, PCR, Source Swab, Nasopharynx SARS CoV-2 RNA, PCR Detected Comment: SARS-CoV-2 RNA present. ----ADDITIONAL INFORMATION---- This RT-PCR test has received Emergency Use Authorization (EUA) by the U.S. Food and Drug Administration and is used per firewall engineer's instructions. Performance characteristics were verified by [facility] in a manner consistent with CLIA requirements. Visit the CDC website: https://www.cdc.gov/coronavirus/ for the most recent guidelines on Coronavirus testing. Fact Sheet for Healthcare Providers: https://www.fda.gov/media/030407/download Fact Sheet for Patients: https://www.fda.gov/media/148893/download ASSESSMENT/PLAN #1 COVID-19 disease Duration of Isolation Beginning of isolation (day 0) is: 10/30/2020 The patient should self- isolate at home for at least 20 days from day zero. The patient may end home isolation when they meet the following criteria: ??? It has been at least 20 days from PCR ??? They have been afebrile at least 24 hours without the use of fever reducing medications ??? Their symptoms are improving Symptom Assessment Mr. Singh currently has no symptoms. Risk Assessment & Follow Up Recommendations Mr. Singh is at high risk for developing severe complications. They declined or did not meet criteria for remote patient monitoring. They have been advised to follow up with their primary care provider. If they declined remote patient monitoring and later reconsider, their primary care provider should notify the [facility] Covid Care Team by paging the [facility] provider of the day, sending an In Basket, or by placing a Covid care e-consult. While severe complications of Covid-19 can develop at any time, they can manifest suddenly between days 7 to 14 from symptom onset. Severe complications of COVID-19 can include viral pneumonia, Acute Respiratory Distress Syndrome, pulmonary embolism, myocardial infarction, myocarditis, acute kidney injury and concomitant viral and bacterial infections. Features of severe disease include ? ? Respiratory frequency > 30 breaths per minute ? ? SpO2 < 94% on room air with signs of lower respiratory tract infection (for patients with chronic hypoxemia, a decrease from baseline of >3%) ? ? Ratio of arterial partial pressure of oxygen to fraction of inspired oxygen (PaO2/FiO2) <300 mm Hg ??? Lung infiltrates covering over 50% of the lungs Symptoms of severe COVID-19 warrants evaluation in the Emergency Department and may include chest pain, fast heart rate, trouble breathing, hemoptysis, pain with breathing, and severe lightheadedness that interferes with activity. These symptoms raise concerns for complications of COVID-19 such as myocardial infarction, myocarditis, pulmonary embolism, pneumonia, acute respiratory distress syndrome and severe dehydration. Symptoms of moderate COVID-19 warrant evaluation in clinic for symptom management and for assessmentfor features of severe disease. Symptoms may include moderate shortness of breath, difficult to control cough, vomiting and diarrhea, weakness and severe fatigue. Symptoms of mild COVID-19 that can be managed at home include fever, chills, cough, fatigue, myalgias, sore throat, runny nose, headache, mild shortness of breath and mild chest pain. Vaccination Guidance If they already received the first of a two shot vaccine series, they may obtain the second dose once they end home isolation. Upcoming Appointments If any clinic appointments are scheduled in the next 20 days, the patient should contact their care teams for guidance on whether these appointments should be rescheduled. COVID Infection Flag The COVID infection flag in the [place] Chart will 20 days from the date of the Sars-CoV-2 PCR. Patients with ongoing symptoms beyond 20 days should remain in isolation and follow up with their care teams regarding the need to reschedule any appointments. If a provider assesses the patient and determines that they may end home isolation prior to the 20 days, they may resolve the COVID infection flag, at which time the patient may return to [facility] for onsite appointments. [email or web address]-[email or web address] Quarantine of household members/close contacts [facility] continues to recommend 14 days quarantine for close contacts. Individuals who have been told by public health officials that they are eligible for a shorter quarantine of 7-10 days may choose to follow Public Health recommendations. If a close contact has been fully vaccinated, defer to public health recommendations for quarantine. Return to Work or School We have provided a general work/school excuse letter that the patient may share with a school or employer as documentation of the positive test result and initial isolation recommendations. The patientwill follow up with their primary care provider for evaluation and return to work assessment if theycontinue to have symptoms that interfere with work or school or if they do not meet criteria to end home isolation. Kavita Corbett M.D., M.P.H. [facility] COVID Care Team [facility] This was a virtual visit. The patient was not seen face to face because of COVID-19. Total time spent in counselin minutes documented in this encounter Plan of Treatment Upcoming Encounters Date Type Specialty Care Team Description 04/24/2022 Appointment Laboratory Medicine Angélica Granger P.A.-C. [address] [place] [address] [phone] 04/25/2022 Office Visit Otorhinolaryngology Dex Matta APRN, C.N.P., M.S.N. [address] [place] [phone] 05/08/2022 Appointment Laboratory Medicine Angélica Granger P.A.-C. [address] [place] [phone] 05/08/2022 Clinical Admitting/Central Communication Scheduling 05/10/2022 Appointment Radiology Jeremie Rose M.D. [address] [place] [phone] 05/10/2022 Comprehensive Visit Orthopedic Surgery Warner Graves M.D. [address] [place] [phone] 05/22/2022 Appointment Laboratory Medicine Angélica Granger P.A.-C. [address] [place] [phone] 06/05/2022 Appointment Laboratory Medicine Angélica Granger P.A.-C. [address] [place] [address] [phone] 06/19/2022 Appointment Laboratory Medicine Angélica Granger P.A.-C. [address] [place] [phone] 07/03/2022 Appointment Laboratory Medicine Angélica Granger P.A.-C. [address] [place] [phone] 07/17/2022 Appointment Laboratory Medicine Angélica Granger P.A.-C. [address] [place] [phone] 07/31/2022 Appointment Laboratory Medicine Angélica Granger P.A.-C. [address] [place] [phone] 08/14/2022 Appointment Laboratory Medicine Angélica Granger P.A.-C. [address] [place] [phone] 08/28/2022 Appointment Laboratory Medicine Angélica Granger P.A.-C. 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
--- OUTSIDE RECORDS SUMMARY | 2022-04-13 12:20 | XMS_ITS | Encounter Summary ---
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 [address] [place] [phone] 04/25/2022 Office Visit Otorhinolaryngology Dex Matta APRN, C.N.P., M.S.N. [address] [place] [phone] 05/08/2022 Appointment Laboratory Medicine Angélica Granger P.A.-CDemetrius [address] [place] [phone] 05/08/2022 Clinical Admitting/Central Communication Scheduling 05/10/2022 Appointment Radiology Jeremie Rose M.D. [address] [place] [phone] 05/10/2022 Comprehensive Visit Orthopedic Surgery Warner rGaves M.D. [address] [place] [phone] 05/22/2022 Appointment Laboratory Medicine Angélica Granger P.A.-C. [address] [place] [phone] 06/05/2022 Appointment Laboratory Medicine Angélica Granger P.A.-C. [address] [place] [phone] 06/19/2022 Appointment Laboratory Medicine Angélica Granger P.A.-C. [address] [place] [phone] 07/03/2022 Appointment Laboratory Medicine Angélica Granger P.A.-C. [address] [place] [address] [phone] 07/17/2022 Appointment Laboratory Medicine Angélica Granger P.A.-C. [address] [place] [phone] 07/31/2022 Appointment Laboratory Medicine Angélica Granger P.A.-C. [address] [place] [address] [phone] 08/14/2022 Appointment Laboratory Medicine Angélica Granger P.A.-C. [address] [place] [phone] 08/28/2022 Appointment Laboratory Medicine Angélica Granger P.A.-C. [address] [place] [phone] documented as of this encounter Visit Diagnoses Not on filedocumented in this encounter Additional Health Concerns Infection Onset Date Last Indicated Resolved Time COVID19 Pending 10/19/2020 10/19/2020 10/19/2020 9:54 AM CDT COVID19 Pending 10/19/2020 10/19/2020 10/20/2020 11:57 AM CDT Assessment Noted Time PHQ-9 Depression Total Score: 3 11/22/2019 7:34 AM CDT documented as of this encounter Care Teams Buggy Ladle Tender Relationship Specialty Start Date End Date Elsewhere, Pcp PCP - General Family Medicine 07/29/[address] [facility] - Laboratory Medicine 04/12/20 [place] [address] documented as of this encounter
--- OUTSIDE RECORDS SUMMARY | 2022-04-13 12:20 | XMS_ITS | Encounter Summary ---
:1955 Author Organization [facility] Address [address] [place] [address] Care Team Providers Name Role Phone Elsewhere, Pcp Primary Care Provider Unavailable Reason for Referral MRI/CAT/PET Scan (Routine) - Closed Specialty Diagnoses / Procedures Referred By Contact Refer red To Contact Radiology Diagnoses Pneumonia Shortness Of Breath Connie Aaron [facility] Procedures CT Chest without IV Contrast M.B.B.S. [address] [place] [address] Referral ID Status Reason Start Date Expiration Date Visits Requ ested Visits Authorized [id number] Closed 10/03/2020 10/03/2021 1 1 MRI/CAT/PET Scan (Routine) - Closed Specialty Diagnoses / Procedures Referred By Contact Refer red To Contact Radiology Diagnoses Shortness Of Breath Cough Unspecified Type Connie Aaron [facility] Procedures CT Sinuses without IV Contrast M.B.B.S. [address] [place], [place] [phone] Referral ID Status Reason Start Date Expiration Date Visits Requ ested Visits Authorized [id number] Closed 10/03/2020 10/03/2021 1 1 Reason for Visit MRI/CAT/PET Scan (Routine) - Closed Specialty Diagnoses / Procedures Referred By Contact Refer red To Contact Radiology Diagnoses Pneumonia Shortness Of Breath Connie Aaron [facility] Procedures CT Chest without IV Contrast M.B.B.S. [address] [place] [phone] Referral ID Status Reason Start Date Expiration Date Visits Requ ested Visits Authorized [id number] Closed 10/03/2020 10/03/2021 1 1 Encounter Details Date Type Department Care Team Description 10/12/2020 Hospital Encounter Department of Connie Aaron tness Of Breath; Radiology, Kd Hernandez M.B.B.S. 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 tablet doxazosin (CARDURA) 4 Take 1 tablet (4 mg 90 tablet 3 03/1703/05/2021 mg tabletIndications: total) by mouth Hypertension Essential daily. Primary fluticasone propionate Administer 2 sprays 64 g 11 06/201905/24/2021 (FLONASE) 50 into each nostril 2 mcg/actuation nasal (two) times a day. spray ipratropium (ATROVENT) Administer 2 sprays 0 07/201611/13/2020 42 mcg (0.06 %) nasal into affected spray nostril(s) 4 (four) times a day as needed for rhinitis. Maintenance lamoTRIgine (LaMICtal) TAKE 1 TABLET BY 200 tablet 3 021 10/22/2021 200 mg tablet MOUTH TWICE DAILY levothyroxine TAKE 1 TABLET BY 90 tablet 3 12/01/201912/12 (SYNTHROID, LEVOTHROID) MOUTH EVERY MORNING 25 mcg tablet 30 MINUTES BEFORE BREAKFAST multivitamin tablet Take 1 tablet by 0 06/18/2013 10/12/2021 mouth daily. Maintenance NIFEdipine XL Take 3 tablets (90 270 tablet 3 06/17/2020 (PROCARDIA XL) 30 mg 24 mg total) by mouth hr tablet daily. predniSONE (DELTASONE) Take 1 tablet (5 mg 90 tablet 3 06/2406/29/2021 5 mg tabletIndications: total) by mouth Transplant Liver (HCC), daily. Medication Therapy Penitentiary Not Anticoagulant tacrolimus (PROGRAF) Take 2 capsules [...] 50 mcg mouth daily. (2,000 Unit) capsule mycophenolate TAKE 1 TABLET BY 180 tablet 3 11/22/201911/06 (CELLCEPT) 500 mg MOUTH TWICE DAILY tabletIndications: Transplant Liver (HCC) sodium chloride USE 4 ML VIA 0 08/30/2020 021 (NEBUSAL) 3 % nebulizer NEBULIZER TWICE solution DAILY sulfamethoxazole-trimet Take 1 tablet by 7 tablet 0 202011/12/2020 hoprim (BACTRIM DS) mouth daily. 800-160 mg per tablet documented as of this encounter Plan of Treatment Upcoming Encounters Date Type Specialty Care Team Description 04/24/2022 Appointment Laboratory Medicine Angélica Granger, P.A.-C. [address] [place] [phone] 04/25/2022 Office Visit Otorhinolaryngology Dex Matta, RAMONA, C.N.P., M.S.N. [address] [place] [phone] 05/08/2022 Appointment Laboratory Medicine Angélica Granger, P.A.-C. [address] [place] [phone] 05/08/2022 Clinical Admitting/Central Communication Scheduling 05/10/2022 Appointment Radiology Jeremie Rose M.D. [address] [place] [phone] 05/10/2022 Comprehensive Visit Orthopedic Surgery Warner Graves M.D. [address] [place] [phone] 05/22/2022 Appointment Laboratory Medicine Angélica Granger P.A.-C. [address] [place] [phone] 06/05/2022 Appointment Laboratory Medicine Angélica Granger P.A.-C. [address] [place] [phone] 06/19/2022 Appointment Laboratory Medicine Angélica Granger P.A.-C. [address] [place] [phone] 07/03/2022 Appointment Laboratory Medicine Angélica Granger P.A.-C. [address] [place] [phone] 07/17/2022 Appointment Laboratory Medicine Angélica Granger P.A.-C. [address] [place] [phone] 07/31/2022 Appointment Laboratory Medicine Angélica Granger P.A.-C. [address] [place] [phone] 08/14/2022 Appointment Laboratory Medicine Angélica Granger P.A.-C. [address] [place] [phone] 08/28/2022 Appointment Laboratory Medicine Angélica Granger P.A.-C. [address] [place] [phone] documented as of this encounter Procedures Procedure Name Priority Date/Time Associated Comments Diagnosis CT SINUSES RAD - Routine 10/12/2020 12:44 Shortness Of Results fo r this WITHOUT IV (most inpatients PM CDT Breath procedure are in CONTRAST and all Cough the results outpatients) section. CT CHEST WITHOUT RAD - Routine 10/12/2020 12:44 Pneumonia Results for this IV CONTRAST (most inpatients PM CDT Shortness Of procedure a re in and all Breath the results outpatients) section. documented in this encounter Results CT Chest without IV Contrast (10/12/2020 12:44 PM CDT) Anatomical Region Laterality Modality Chest, Thoracic RST LOS, Thoracic ARZ N/A Co mputed Tomography, Computed LOS, Thoracic FLA LOS Tomography Specimen (Source) Anatomical Collection Method Collection Time Re ceived Time Location / / Volume Laterality 10/12/2020 4:44 PM CDT Impressions 10/12/2020 4:52 PM CDT 1. Increased bilateral lower lobe and right upper lobe posterior infectious/inflammatory bronchiolitis an d clustered nodularities. In the presence of a small sliding esophageal h iatal hernia, findings likely represent recurrent aspiration. 2. Additional findings are detailed in t he body of the report. Narrative 10/12/2020 4:52 PM CDT EXAM: CT CHEST WITHOUT IV CONTRAST COMPARISON: Multiple chest CTs from 07/2019to08/31/2020 ?? FINDINGS: Bilateral lower lobe clustered nodularit ies have increased. Peripheral right upper lobe posterior clustered nodularit ies have also increased. Moderate diffuse bronchial wall thickening has no t substantially changed. No pleural effusion or thickening identified. Shotty subcentimeter nodes without thora cic adenopathy by size criteria. Mild aortic and severe coronary artery c alcifications are again identified. Status post hepatic transplant. Surgical ly absent gallbladder. Hypodense right renal lesion is presumably a cyst. Simil ar cystic pancreatic tail partially imaged lesions. Splenomegaly again seen. Borderline sliding esophageal hiatal her lili is again identified. Paraesophageal varices. Mild degenerative changes of the spine a re again identified. Healed right clavicular fracture, partially imaged. H ealed anterior right rib fractures. Left humeral head sclerotic focus is presumab ly a bone island. No aggressive osseous lesions identified. Thank you for the consultation. Procedure Note Raphael Vazquez M.D. - 10/12/2020Formattin g of this note might be different from the original. EXAM: CT CHEST WITHOUT IV CONTRAST COMPARISON: Multiple chest CTs from 07/2019to08/31/2020 FINDINGS: Bilateral lower lobe clustered nodularit ies have increased. Peripheral right upper lobe posterior clustered nodularit ies have also increased. Moderate diffuse bronchial wall thickening has no t substantially changed. No pleural effusion or thickening identified. Shotty subcentimeter nodes without thora cic adenopathy by size criteria. Mild aortic and severe coronary artery c alcifications are again identified. Status post hepatic transplant. Surgical ly absent gallbladder. Hypodense right renal lesion is presumably a cyst. Simil ar cystic pancreatic tail partially imaged lesions. Splenomegaly again seen. Borderline sliding esophageal hiatal her lili is again identified. Paraesophageal varices. Mild degenerative changes of the spine a re again identified. Healed right clavicular fracture, partially imaged. H ealed anterior right rib fractures. Left humeral head sclerotic focus is presumab ly a bone island. No aggressive osseous lesions identified. Thank you for the consultation. IMPRESSION: 1. Increased bilateral lower lobe and ri ght upper lobe posterior infectious/inflammatory bronchiolitis an d clustered nodularities. In the presence of a small sliding esophageal h iatal hernia, findings likely represent recurrent aspiration. 2. Additional findings are detailed in t he body of the report. Connie Barron IMAutumn CT PROCEDURES CT Sinuses without IV Contrast (10/12/2020 12:44 PM CDT) Anatomical Region Laterality Modality Head, Neuroradiology RST LOS, N/A Computed T omography, Computed Neuroradiology ARZ LOS, Neuroradiology T omography FLA LOS Specimen (Source) Anatomical Collection Method Collection Time Re ceived Time Location / / Volume Laterality 10/12/2020 12:58 PM CDT Impressions 10/12/2020 1:02 PM CDT No significant interval change. Narrative 10/12/2020 1:02 PM CDT EXAM: CT SINUSES WITHOUT IV CONTRAST COMPARISON: 08/20/2016 FINDINGS: Again seen are postoperative c hanges on the anterior aspect of the maxillary sinuses, orbital rims, zygomas , and nasal bones. Moderate mucosal thickening within the right maxillary si nus with milder mucosal thickening within the left maxillary sinus and scat tered ethmoid air cells as well as along the floor of the frontal sinus. The sphe noid sinuses are well aerated. Stable appearance to osteitis adjacent the para nasal sinuses compatible with chronic sinusitis. Remainder negative. Procedure Note Tres Brown M.D. - 10/12/2020Fo rmatting of this note might be different from the original. EXAM: CT SINUSES WITHOUT IV CONTRAST COMPARISON: 08/20/2016 FINDINGS: Again seen are postoperative c hanges on the anterior aspect of the maxillary sinuses, orbital rims, zygomas , and nasal bones. Moderate mucosal thickening within the right maxillary si nus with milder mucosal thickening within the left maxillary sinus and scat tered ethmoid air cells as well as along the floor of the frontal sinus. The sphe noid sinuses are well aerated. Stable appearance to osteitis adjacent the para nasal sinuses compatible with chronic sinusitis. Remainder negative. IMPRESSION: No significant interval change. Connie Barron IMG CT PROCEDURES documented in this encounter Visit Diagnoses Diagnosis Shortness Of Breath Cough Unspecified Type Pneumonia documented in this encounter Additional Health Concerns Assessment Noted Time PHQ-9 Depression Total Score: 3 11/22/2019 7:34 AM CDT documented as of this encounter Care Teams Jump Iron Machine Presser Relationship Specialty Start Date End Date Elsewhere, Pcp PCP - General Family Medicine 07/29/17 [facility] - Laboratory Medicine 04/12/[address] [address] documented as of this encounter
--- OUTSIDE RECORDS SUMMARY | 2022-04-13 12:20 | XMS_ITS | Encounter Summary ---
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 [address] [place] [phone] Referral ID Status Reason Start Date Expiration Date Visits Requ ested Visits Authorized [id number] Closed 10/31/2020 10/31/2021 1 1 Encounter Details Date Type Department Care Team Description 10/31/2020 Orders Only Yolie Gamez Trans plant Liver (HCC) (Primary Dx); [facility] R, R. N. 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 [address] [place] [phone] 04/25/2022 Office Visit Otorhinolaryngology Dex Matta APRN, C.N.P., M.S.N. [address] [place] [phone] 05/08/2022 Appointment Laboratory Medicine Angélica Granger P.A.-C. [address] [place] [phone] 05/08/2022 Clinical Admitting/Central Communication Scheduling 05/10/2022 Appointment Radiology Jeremie Rose M.D. [address] [place] [phone] 05/10/2022 Comprehensive Visit Orthopedic Surgery Warner Graves M.D. [address] [place] [phone] 05/22/2022 Appointment Laboratory Medicine Angélica Granger P.A.-C. [address] [place] [phone] 06/05/2022 Appointment Laboratory Medicine Angélica Granger P.A.-C. [address] [place] [phone] 06/19/2022 Appointment Laboratory Medicine Angélica Granger P.A.-C. [address] [place] [phone] 07/03/2022 Appointment Laboratory Medicine Angélica Granger P.A.-C. [address] [place] [phone] 07/17/2022 Appointment Laboratory Medicine Angélica Granger P.A.-C. [address] [place] [phone] 07/31/2022 Appointment Laboratory Medicine Angélica Granger P.A.-C. [address] [place] [phone] 08/14/2022 Appointment Laboratory Medicine Angélica Granger P.A.-C. [address] [place] [phone] 08/28/2022 Appointment Laboratory Medicine Angélica Granger P.A.-C. 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
--- OUTSIDE RECORDS SUMMARY | 2022-04-13 12:20 | XMS_ITS | Encounter Summary ---
:1955 Author Organization [facility] Address [address] [place] [address] Care Team Providers Name Role Phone Elsewhere, Pcp Primary Care Provider Unavailable Reason for Visit Reason Onset Date Comments Outpatient COVID-19 Testing 10/19/2020 Encounter Details Date Type Department Care Team Description 10/19/2020 External Outreach Department of [facility] Mushtaq Salas Contact With And Medicine, Steven Stern D.O. (Suspected) Exposure Building, in [address] To COVID-19 (Primary [place], [place] Dx) [address] 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 - 10/19/2020 9:59 AM CDT Encounter created for infectious disease screening. documented in this encounter Miscellaneous Notes Addendum Note - Elie Lozada R.N. - 10/19/2020 9:59 AM CDT Addended by: ELIE LOZADA on: 10/20/2020 11:57 AM Modules accepted: Orders documented in this encounter Plan of Treatment Upcoming Encounters Date Type Specialty Care Team Description 04/24/2022 Appointment Laboratory Medicine Angélica Granger P.A.-C. [address] [place] [phone] 04/25/2022 Office Visit Otorhinolaryngology Dex Matta APRN, C.N.P., M.S.N. [address] [place] [phone] 05/08/2022 Appointment Laboratory Medicine Angélica Granger P.A.-C. [address] [place] [phone] 05/08/2022 Clinical Admitting/Central Communication Scheduling 05/10/2022 Appointment Radiology Jeremie Rose M.D. [address] [place] [phone] 05/10/2022 Comprehensive Visit Orthopedic Surgery Warner Graves M.D. [address] [place] [phone] 05/22/2022 Appointment Laboratory Medicine Angélica Granger P.A.-C. [address] [place] [phone] 06/05/2022 Appointment Laboratory Medicine Angélica Granger P.A.-C. [address] [place] [phone] 06/19/2022 Appointment Laboratory Medicine Angélica Granger P.A.-C. [address] [place] [phone] 07/03/2022 Appointment Laboratory Medicine Angélica Granger P.A.-C. [address] [place] [phone] 07/17/2022 Appointment Laboratory Medicine Angélica Granger P.A.-C. [address] [place] [phone] 07/31/2022 Appointment Laboratory Medicine Angélica Granger P.A.-C. [address] [place] [phone] 08/14/2022 Appointment Laboratory Medicine Angélica Granger P.A.-C. [address] [place] [phone] 08/28/2022 Appointment Laboratory Medicine Angélica Granger P.A.-C. [address] [place] [phone] documented as of this encounter Visit Diagnoses Diagnosis Contact With And (Suspected) Exposure To COVID-19 - Primary documented in this encounter Additional Health Concerns Infection Onset Date Last Indicated Resolved Time COVID19 Pending 10/19/2020 10/19/2020 10/19/2020 9:54 AM CDT COVID19 Pending 10/19/2020 10/19/2020 10/20/2020 11:57 AM CDT Assessment Noted Time PHQ-9 Depression Total Score: 3 11/22/2019 7:34 AM CDT documented as of this encounter Care Teams Deliverer Pharmacy Relationship Specialty Start Date End Date Elsewhere, Pcp PCP - General Family Medicine 07/29/17 [facility] - Laboratory Medicine 04/12/[address] [address] documented as of this encounter
--- OUTSIDE RECORDS SUMMARY | 2022-04-13 12:20 | XMS_ITS | Encounter Summary ---
:1955 Author Organization [facility] Address [address] [place] [address] Care Team Providers Name Role Phone Elsewhere, Pcp Primary Care Provider Unavailable Reason for Visit Reason Comments Treatment Episode Based Medications (Routine) - Closed Specialty Diagnoses / Procedures Referred By Contact Refer red To Contact Diagnoses COVID-19 Infection Arturo [facility] Wolf Draper M.D., M.P.H. [address] [place] [address] [address] [place] [address] [phone] Referral ID Status Reason Start Date Expiration Date Visits Requ ested Visits Authorized [id number] Closed 10/31/2020 10/31/2021 99 99 Encounter Details Date Type Department Care Team Description 10/31/2020 Infusion Department of Infusion Juan Pablo COVID-19 Infection Therapy in Jimmie Draper M.D., (Primary Dx) [place], [place] M.P.H. 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 RDemetriusN. - 10/31/2020 1:00 PM CDT Patient received infusion in the [facility] for Casirivimab/imdevimab infusion on 10/31/2020. Patient education was reinforced per medication handout and questions were answered. Patient tolerated infusion well with no adverse reactions. Vitals signs remained stable and patient was observed post infusion per protocol. Patient was being discharged from the infusion center in a stable condition and escorted directly to Door. documented in this encounter Plan of Treatment Upcoming Encounters Date Type Specialty Care Team Description 04/24/2022 Appointment Laboratory Medicine Angélica Granger P.A.-C. [address] [place] [phone] 04/25/2022 Office Visit Otorhinolaryngology Dex Matta APRN, C.N.P., M.S.N. [address] [place] [phone] 05/08/2022 Appointment Laboratory Medicine Angélica Granger P.A.-C. [address] [place] [phone] 05/08/2022 Clinical Admitting/Central Communication Scheduling 05/10/2022 Appointment Radiology Jeremie Rose M.D. [address] [place] [phone] 05/10/2022 Comprehensive Visit Orthopedic Surgery Warner Graves M.D. [address] [place] [phone] 05/22/2022 Appointment Laboratory Medicine Angélica Granger P.A.-C. [address] [place] [phone] 06/05/2022 Appointment Laboratory Medicine Angélica Granger P.A.-C. [address] [place] [phone] 06/19/2022 Appointment Laboratory Medicine Angélica Granger P.A.-C. [address] [place] [phone] 07/03/2022 Appointment Laboratory Medicine Angélica Granger P.A.-C. [address] [place] [phone] 07/17/2022 Appointment Laboratory Medicine Angélica Granger P.A.-C. [address] [place] [phone] 07/31/2022 Appointment Laboratory Medicine Angélica Granger P.A.-C. [address] [place] [phone] 08/14/2022 Appointment Laboratory Medicine Angélica Granger P.A.-C. [address] [place] [phone] 08/28/2022 Appointment Laboratory Medicine Angélica Granger P.A.-C. [address] [place] [phone] documented as of this encounter Visit Diagnoses Diagnosis COVID-19 Infection - Primary documented in this encounter Administered Medications Inactive Administered Medications - up to 3 most recent administrations Medication Order MAR Action Action Date Dose Rate Site casirivimab-imdevimab IVPB 2,400 New Bag 10/31/2020 1:05 PM CDT 210 mL/hr mg (1,200 mg-1,200 mg) in NaCl 0.9% 70 mL intravenous, at 210 mL/hr, Administer over 20 Minutes, Once, On Fri10/31/20 at 1300, For 1 dose, RN distributes fact sheet to patient/caregiver. https://www.regeneron.com/sites/ default/files/treatment-covid19- lva-yqss-tmppd-for-patient.pdf *Refrigerate* Do not shake. Allow the infusion solution to equilibrate to room temperature for approximately 30 minutes prior to administration. Nursing to attach and prime infusion set with in-line or add-on 0.2 micron polyethersulfone (PES) filter. Flush with NaCl 0.9% after infusion. , Authorizing Prescriber Service: [facility] Front Line Care Team, Criteria: Patient age >= 18 years, AND meeting at least one of the following: Age >= 65 years NaCl 0.9% infusion New Bag 10/31/2020 1:05 PM CDT 75 mL/hr 75 mL/hr 10-250 mL/hr, intravenous, As needed, Between Consecutive Piggyback Administrations, Starting on Fri10/31/20 at 1258, Infuse at the same rate as the piggyback until tubing clears or up to a volume of 20 mL. Select for IV medication administration when no maintenance IV available or when IV medications are not compatible with maintenance fluid. sodium chloride 0.9 % injection 10 mL Given 10/31/2020 1:05 PM CDT 10 mL 10 mL, intra-catheter, As needed, line care, Starting on Fri10/31/20 at 1258, Prior to blood sampling, post blood transfusion, or post blood sampling. documented in this encounter Additional Health Concerns Infection Onset Date Last Indicated Resolved Time COVID19 10/30/2020 10/30/2020 11/19/2020 4:45 AM CDT Assessment Noted Time PHQ-9 Depression Total Score: 3 11/22/2019 7:34 AM CDT documented as of this encounter Care Teams Abstract Checker Relationship Specialty Start Date End Date Elsewhere, Pcp PCP - General Family Medicine 07/29/17 [facility] - Laboratory Medicine 04/12/20 [place] [phone] documented as of this encounter
--- OUTSIDE RECORDS SUMMARY | 2022-04-13 12:20 | XMS_ITS | Encounter Summary ---
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 - 10/30/2020 5:14 PM CDT Patient called after speaking with MD about his positive result for recent covid-19 test. He has changed his mind about receiving services. He will call tomorrow to try to have this set up. He has already sent a message to his PCP. documented in this encounter Plan of Treatment Upcoming Encounters Date Type Specialty Care Team Description 04/24/2022 Appointment Laboratory Medicine Angélica Granger P.A.-C. [address] [place] [phone] 04/25/2022 Office Visit Otorhinolaryngology Dex Matta APRN, C.N.P., M.S.N. [address] [place] [phone] 05/08/2022 Appointment Laboratory Medicine Angélica Granger P.A.-C. [address] [place] [phone] 05/08/2022 Clinical Admitting/Central Communication Scheduling 05/10/2022 Appointment Radiology Jeremie Rose M.D. [address] [place] [phone] 05/10/2022 Comprehensive Visit Orthopedic Surgery Warner Graves M.D. [address] [place] [phone] 05/22/2022 Appointment Laboratory Medicine Angélica Granger P.A.-C. [address] [place] [phone] 06/05/2022 Appointment Laboratory Medicine Angélica Granger P.A.-C. [address] [place] [phone] 06/19/2022 Appointment Laboratory Medicine Angélica Granger P.A.-C. [address] [place] [phone] 07/03/2022 Appointment Laboratory Medicine Angélica Granger P.A.-C. [address] [place] [phone] 07/17/2022 Appointment Laboratory Medicine Angélica Granger P.A.-C. [address] [place] [phone] 07/31/2022 Appointment Laboratory Medicine Angélica Granger P.A.-C. [address] [place] [phone] 08/14/2022 Appointment Laboratory Medicine Angélica Granger P.A.-C. [address] [place] [phone] 08/28/2022 Appointment Laboratory Medicine Angélica Granger P.A.-C. [address] [place] [phone] documented as of this encounter Visit Diagnoses Not on filedocumented in this encounter Additional Health Concerns Infection Onset Date Last Indicated Resolved Time COVID19 Pending 10/30/2020 10/30/2020 10/30/2020 3:10 PM CDT COVID19 10/30/2020 10/30/2020 11/19/2020 4:45 AM CDT Assessment Noted Time PHQ-9 Depression Total Score: 3 11/22/2019 7:34 AM CDT documented as of this encounter Care Teams Cuff Turner Relationship Specialty Start Date End Date Elsewhere, Pcp PCP - General Family Medicine 07/29/17 [facility] - Laboratory Medicine 04/12/[address] [address] documented as of this encounter
--- OUTSIDE RECORDS SUMMARY | 2022-04-13 12:20 | XMS_ITS | Encounter Summary ---
:1955 Author Organization [facility] Address [address] [place] [address] Care Team Providers Name Role Phone Elsewhere, Pcp Primary Care Provider Unavailable Encounter Details Date Type Department Care Team Description 10/12/2020 Hospital Encounter Department of Connie Aaron P neumonia Laboratory Medicine and M.B.B.S. 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 Medication Therapy Drafter Civil Not Anticoagulant tacrolimus (PROGRAF) Take 2 capsules [...] Laboratory Medicine Angélica Granger, P.A.-C. [address] [place] [phone] 04/25/2022 Office Visit Otorhinolaryngology Dex Matta, RAMONA, C.N.P., M.S.N. [address] [place] [phone] 05/08/2022 Appointment Laboratory Medicine Angélica Granger P.A.-C. [address] [place] [phone] 05/08/2022 Clinical Admitting/Central Communication Scheduling 05/10/2022 Appointment Radiology Jeremie Rose M.D. [address] [place] [phone] 05/10/2022 Comprehensive Visit Orthopedic Surgery Warner Graves M.D. [address] [place] [phone] 05/22/2022 Appointment Laboratory Medicine Angélica Granger P.A.-C. [address] [place] [phone] 06/05/2022 Appointment Laboratory Medicine Angélica Granger P.A.-C. [address] [place] [phone] 06/19/2022 Appointment Laboratory Medicine Angélica Granger P.A.-C. [address] [place] [phone] 07/03/2022 Appointment Laboratory Medicine Angélica Granger P.A.-C. [address] [place] [phone] 07/17/2022 Appointment Laboratory Angélica Royal P.A.-C. [address] [place] [phone] 07/31/2022 Appointment Laboratory Medicine Angélica Granger P.A.-C. [address] [place] [phone] 08/14/2022 Appointment Laboratory Angélica Royal P.A.-C. [address] [place] [phone] 08/28/2022 Appointment Laboratory Medicine Angélica Granger P.A.-C. [address] [place] [phone] documented as of this encounter Procedures Procedure Name Priority Date/Time Associated Comments Diagnosis BACTERIAL CULTURE, Routine 10/12/2020 12:12 Pneumonia Resul ts for this AEROBIC + SUSC, RESP PM CDT procedu re are in the results section. MYCOBACTERIAL CULTURE, Routine 10/12/2020 12:12 Pneumonia R esults for this V PM CDT procedure are i n the results section. FUNGAL SMEAR Routine 10/12/2020 12:12 Pneumonia Results for this PM CDT procedure are i n the results section. ACID FAST SMEAR FOR Routine 10/12/2020 12:12 Pneumonia Resu lts for this MYCOBACTERIUM PM CDT procedure are in the results section. GRAM STAIN Routine 10/12/2020 12:12 Pneumonia Results for this PM CDT procedure are i n the results section. FUNGAL CULTURE, Routine 10/12/2020 12:12 Pneumonia Results for this ROUTINE PM CDT procedure are i n the results section. documented in this encounter Results Mycobacterial Culture (10/12/2020 12:12 PM CDT) [employer] Method Time Signature Mycobacterial No growth 11/23/2020 DTL Culture after 42 1:01 PM CDT days of incubation . Specimen Anatomical Collection Method Collection Time Receive d Time (Source) Location / / Volume Laterality Sputum (Sputum) 10/12/2020 12:12 10/13/19 21 PM CDT 12:55 PM CDT Comment: Specimen Source Site: Sputum Connie RocaSDemetrius LAB MICROBIOLOGY - GENERAL ORDERABLES Performing Organization Address City/State/ZIP Code Phon e Number [facility] - [address] [place], [place] [address] [facility] [place] [address] Laboratories-[facility] [address] Acid Fast Smear For Mycobacterium (10/12/2020 12:12 PM CDT) [employer] Method Time Signature Acid Fast Smear Negative. 10/12/2020 DTL For Mycobacterium 10:22 PM CDT Specimen Anatomical Collection Method Collection Time Receive d Time (Source) Location / / Volume Laterality Sputum (Sputum) 10/12/2020 12:12 10/13/19 21 PM CDT 12:55 PM CDT Comment: Specimen Source Site: Sputum Connie Keller.B.S. LAB MICROBIOLOGY - GENERAL ORDERABLES Performing Organization Address City/State/ZIP Code Phon e Number [facility] - [address] [place], [place] [address] [place] [phone] [place] [address] (ABNORMAL) Fungal Culture, Routine (10/12/2020 12:12 PM CDT) Patholo gist Method Time Signature Fungal ASPERGILLUS FUMIGATUS COMPLEX 11/06/2020 DT Culture, Few 2:12 PM CDT Routine (A) Comment: Susceptibility testing is not indicated for all molds. Infectious Diseases consult is required to order mold susceptibility testing. Fungal Culture, Routine YEAST, NOT Cr. neoformans, N OT Cr. gattii and NOT C. auris 11/06/2020 2:12 PM CDT DT Few (A) Specimen Anatomical Collection Method Collection Time Receive d Time (Source) Location / / Volume Laterality Sputum (Sputum) 10/12/2020 12:12 10/13/19 21 PM CDT 12:55 PM CDT Comment: Specimen Source Site: Sputum Connie CottrellB.S. LAB MICROBIOLOGY - GENERAL ORDERABLES Performing Organization Address City/[facility]/ZIP Code Phon e Number [facility] - [id number] [place] [address] [address] [facility] Fungal Smear (10/12/2020 12:12 PM CDT) P athologist Signature Fungal Smear Negative. 10/12/2020 DT 10:39 PM CDT Specimen Anatomical Collection Method Collection Time Receive d Time (Source) Location / / Volume Laterality Sputum (Sputum) 10/12/2020 12:12 10/13/19 21 PM CDT 12:55 PM CDT Comment: Specimen Source Site: Sputum Connie CottrellB.S. LAB MICROBIOLOGY - GENERAL ORDERABLES Performing Organization Address City/State/ZIP Code Phon e Number [facility] - [address] [place], [place] [address] [place] [address] [facility] [address] [facility] (ABNORMAL) Bacterial Culture, Aerobic + Susc, Resp (10/12/2020 12:12 PM CDT) Patholo gist Method Time Signature Bacterial With usual 10/16/2020 DTL Culture, efrem (A) 1:16 PM CDT Aerobic, Resp Bacterial SERRATIA MARCESCENS 10/16/2020 DTL Culture, 2+ 1:16 PM CDT Aerobic, Resp (A) Comment: This organism may contain an inducible b eta-lactamase. Second- or third-generation cephalospori n monotherapy may result in the emergence of high-level resistance. Preferred empiric therapy, p ending antimicrobial susceptibility results, is cefepime, a f luoroquinolone, or a carbapenem, unless clinically contr aindicated. Bacterial Culture, Aerobic, STAPHYLOCOCCUS AUREUS 10/16/2020 1:16 PM CDT DTL Resp 1+ (A) Specimen Anatomical Collection Method Collection Time Receive d Time (Source) Location / / Volume Laterality Sputum (Sputum) 10/12/2020 12:12 10/13/19 21 PM CDT 12:55 PM CDT Comment: Specimen Source Site: Sputum [...] Susceptible DAVID (MCG/ML) Serratia marcescens Tobramycin SUSCEPTIBILITY, 2 mcg/mL: Ennis sceptible DAVID (MCG/ML) Serratia marcescens Aztreonam SUSCEPTIBILITY, <=4 mcg/mL: Susceptible DAIVD (MCG/ML) Serratia marcescens Trimethoprim + SUSCEPTIBILITY, <=0.5/9.5 mc g/mL: Sulfamethoxazole DAVID (MCG/ML) Susceptible Staphylococcus aureus Oxacillin SUSCEPTIBILITY, <=0.25 mcg /mL: DAVID (MCG/ML) Susceptible Comment: Use oxacillin interpretation to predict results for anti-staphylococcal beta-lac ramey antibiotics (except ceftaroline). Staphylococcus aureus Vancomycin SUSCEPTIBILITY, DAVID 1 mcg/ mL: Susceptible (MCG/ML) Staphylococcus aureus Clindamycin SUSCEPTIBILITY, DAVID <=0.5 mcg/mL: (MCG/ML) Susceptible Staphylococcus aureus Levofloxacin SUSCEPTIBILITY, DAVID >4 mcg /mL: Resistant (MCG/ML) Comment: Fluoroquinolones have a limi onel role in treatment of staphylococcal infections; c onsult Infectious Diseases if considering usage. Staphylococcus aureus Trimethoprim + SUSCEPTIBILITY, DAVID <=0.5/ 9.5 mcg/mL: Sulfamethoxazole (MCG/ML) Susceptible Staphylococcus aureus Mupirocin SUSCEPTIBILITY, DAVID <=256 mcg/mL: (MCG/ML) Susceptible Staphylococcus aureus Minocycline SUSCEPTIBILITY, DAVID <=4 mc g/mL: (MCG/ML) Susceptible Staphylococcus aureus Linezolid SUSCEPTIBILITY, DAVID <=2 mc g/mL: (MCG/ML) Susceptible Staphylococcus aureus Rifampin SUSCEPTIBILITY, DAVID <=0.5 mcg/mL: (MCG/ML) Susceptible Comment: Rifampin should not be used as monotherapy Staphylococcus aureus Doxycycline SUSCEPTIBILITY, DAVID (MCG/M L) <=4 mcg/mL: Susceptible Connie Barron LAB MICROBIOLOGY - GENERAL ORDERABLES Performing Organization Address City/State/ZIP Code Phon e Number [facility] - [facility] [address] [place], [place] [address] [facility] [place] [address] Laboratories-[facility] [address] Gram Stain (10/12/2020 12:12 PM CDT) Patholo gist Method Time Signature Gram Stain Mixed efrem. 10/12/2020 DTL White blood cells, Moderate. 3:06 PM CDT Epithelial cells, Few. Specimen Anatomical Collection Method Collection Time Receive d Time (Source) Location / / Volume Laterality Sputum (Sputum) 10/12/2020 12:12 10/13/19 21 PM CDT 12:55 PM CDT Comment: Specimen Source Site: Sputum Connie Barron LAB MICROBIOLOGY - GENERAL ORDERABLES Performing Organization Address City/State/ZIP Code Phon e Number [facility] - [address] [place] [phone] [facility] [place] [address] Laboratories-[address] documented in this encounter Visit Diagnoses Diagnosis Pneumonia documented in this encounter Additional Health Concerns Assessment Noted Time PHQ-9 Depression Total Score: 3 11/22/2019 7:34 AM CDT documented as of this encounter 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
--- OUTSIDE RECORDS SUMMARY | 2022-04-13 12:20 | XMS_ITS | Encounter Summary ---
:1955 Author Organization [facility] Address [address] [place] [address] Care Team Providers Name Role Phone Elsewhere, Pcp Primary Care Provider Unavailable Reason for Visit Outpatient (Routine) - Closed Specialty Diagnoses / Procedures Referred By Contact Refer red To Contact Diagnoses Transplant Liver (HCC) Medication Therapy Intermediate Not Anticoagulant COVID-19 Infection Trung Plasencia P.A.-C., [facility] Procedures COVID - General eConsult (Adults Only) Clinical Evaluation; Enroll in COVID Care Program M.S. [address] [place] [address] [phone] Referral ID Status Reason Start Date Expiration Date Visits Requ ested Visits Authorized [id number] Closed 10/31/2020 10/31/2021 1 1 Encounter Details Date Type Department Care Team Description 11/01/2020 Internal E-Consult Division of General Evan Plasencia P.A.-C., M.S. [address] [place] [phone] Transplant Liver (HCC); Internal Medicine in Lilian Maddox M.D. 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 - 11/01/2020 6:00 AM CDT REFERRAL Trung Plasencia P.A.-C.,* REASON FOR CONSULT Mr. Singh was not personally interviewed or examined. The history and examination findings are based on the clinical documentation provided and/or discussion with a physician or provider who had personally interviewed and examined the patient. SUBJECTIVE HISTORY OF PRESENT ILLNESS Mr. Bruce Singh is a 65 y.o. male whose electronic medical record I have been asked to reviewfor an e-consultation for COVID-19 infection monitoring. The following features of severe or critical COVID infection are/were present: ??? None The patient is unclear regarding the start of symptoms attributable to COVID-19 infection. His SARS Cov-2 PCR test was positive on October 30, 2020. He is at high risk for severe disease/complications due to his liver transplant and immunocompromised state. The following portions of the patient's history were reviewed: allergies, current medications, family history, medical history, social history, surgical history and problem list. OBJECTIVE DIAGNOSTICS: I have reviewed Mr. Singh's diagnostic testing. SARS Coronavirus-2, PCR Date Value Ref Range Status 12/13/2019 Undetected Undetected Final Comment: SARS-CoV-2 RNA absent. This result does not rule out COVID-19 in the patient, as the sensitivity of the test depends on the timing of the specimen collection and quality of the specimen. Result should be correlated with patient's history and clinical presentation. ----ADDITIONAL INFORMATION---- This test was developed and its performance characteristics determined by [facility] in a manner consistent with CLIA requirements. Independent review by the U.S. Food and Drug Administration is pending. Visit the CDC website: https://www.cdc.gov/coronavirus/ for the most recent guidelines on Coronavirus testing. Fact Sheet for Healthcare Providers: (https://www.DGSE/it-mmfiles/ Provider_Fact_Sheet_for_[facility]_COVID-19.pdf) Fact Sheet for Patients: (https://www.DGSE/it-mmfiles/ Patient_Fact_Sheet_for_COVID-19.pdf) SARS CoV-2 RNA, TMA Date Value Ref Range Status 08/25/2020 Undetected Undetected Final Comment: SARS-CoV-2 RNA absent. This result does not rule out COVID-19 in the patient, as the sensitivity of the test depends on the timing of the specimen collection and the quality of the specimen. Result should be correlated with patient's history and clinical presentation. ----ADDITIONAL INFORMATION---- This molecular amplification test was performed using the Aptima SARS-CoV-2 assay ([employer] on the Stryker System under emergency use authorization (EUA) by the U.S. Food and Drug Administration. Fact sheets for this EUA assay can be found at the following links: For Healthcare Providers: https://www.Zipmark.gov/media/790114/download For Patients: https://www.fda.gov/media/615650/download 06/02/2020 Undetected Undetected Final Comment: SARS-CoV-2 RNA absent. This result does not rule out COVID-19 in the patient, as the sensitivity of the test depends on the timing of the specimen collection and the quality of the specimen. Result should be correlated with patient's history and clinical presentation. ----ADDITIONAL INFORMATION---- This test is performed using the Aptima SARS-CoV-2 assay ([employer].), which has received Emergency Use Authorization (EUA) by the U.S. Food and Drug Administration. Fact sheets for this Emergency Use Authorization (EUA) assay can be found at the following links: For Healthcare Providers: https://www.Zipmark.gov/media/081934/download For Patients: https://www.Zipmark.gov/media/432383/download 04/13/2020 Undetected Undetected Final Comment: SARS-CoV-2 RNA absent. This result does not rule out COVID-19 in the patient, as the sensitivity of the test depends on the timing of the specimen collection and the quality of the specimen. Result should be correlated with patient's history and clinical presentation. ----ADDITIONAL INFORMATION---- This test is performed using the Aptima SARS-CoV-2 assay ([employer] which has received Emergency Use Authorization (EUA) by the U.S. Food and Drug Administration. Fact sheets for this Emergency Use Authorization (EUA) assay can be found at the following links: For Healthcare Providers: https://www.Zipmark.gov/media/356602/download For Patients: https://www.Zipmark.gov/media/464545/download SARS-CoV-2 IgG Ab Date Value Ref Range Status 12/13/2019 Negative Negative Final Comment: No IgG antibodies to SARS-CoV-2 detected. Negative results may occur in serum collected too soon following infection, or in immunosuppressed patients. Follow-up testing with a molecular test is recommended in symptomatic patients. This test should not be used to exclude active/recent COVID-19. Testing was performed using the EUROIMMUN Fpzn-URLI-FsM-2 HARRIET (IgG), which has received Emergency Use Authorization (EUA) by the U.S. Food and Drug Administration. Fact sheets for this EUA assay can be found at the following links: Factsheet for healthcare Providers: https://www.fda.gov/media/623594/download Factsheet for healthcare Patients: https://www.fda.gov/media/780637/download ASSESSMENT / PLAN #1 Transplant Liver (HCC) #2 Medication Therapy Frame Assembler Not Anticoagulant #3 COVID-19 Infection Follow up with [facility] will be established. Patient was referred for Complex Care remote monitoring through the [facility]. Beginning of isolation is October 30, 2020. Isolation duration: at least 20 days from the date of the positive PCR. If any symptoms develop, they should contact their healthcare providers. Follow up contact: the [facility] Emergency Department remote monitoring team at [phone] On campus appointments: You do have upcoming on-campus appointments. We recommend delaying non-urgent appointments until you have recovered from your COVID infection. Our team will reach out to the area you are scheduled to be seen in. Please do not come to campus until given the ok to do so by a [facility] training representative. documented in this encounter Plan of Treatment Upcoming Encounters Date Type Specialty Care Team Description 04/24/2022 Appointment Laboratory Medicine Angélica Granger P.A.-C. [address] [place] [phone] 04/25/2022 Office Visit Otorhinolaryngology Dex Matta APRN, C.N.P., M.S.N. [address] [place] [phone] 05/08/2022 Appointment Laboratory Medicine Angélica Granger P.A.-C. [address] [place] [phone] 05/08/2022 Clinical Admitting/Central Communication Scheduling 05/10/2022 Appointment Radiology Jeremie Rose M.D. [address] [place] [phone] 05/10/2022 Comprehensive Visit Orthopedic Surgery Warner Graves M.D. [address] [place] [phone] 05/22/2022 Appointment Laboratory Medicine Angélica Granger P.A.-C. [address] [place] [phone] 06/05/2022 Appointment Laboratory Medicine Angélica Granger P.A.-C. [address] [place] [phone] 06/19/2022 Appointment Laboratory Medicine Angélica Granger P.A.-C. [address] [place] [phone] 07/03/2022 Appointment Laboratory Medicine Angélica Granger P.A.-C. [address] [place] [phone] 07/17/2022 Appointment Laboratory Medicine Angélica Granger P.A.-C. [address] [place] [phone] 07/31/2022 Appointment Laboratory Medicine Angélica Granger P.A.-C. [address] [place] [phone] 08/14/2022 Appointment Laboratory Medicine Angélica Granger P.A.-C. [address] [place] [phone] 08/28/2022 Appointment Laboratory Medicine Angélica Granger P.A.-C. [address] [place] [phone] documented as of this encounter Visit Diagnoses Diagnosis Transplant Liver (HCC) Medication Therapy Intermediate Not Anticoa gulant COVID-19 Infection documented in this encounter Additional Health Concerns Infection Onset Date Last Indicated Resolved Time COVID19 10/30/2020 10/30/2020 11/19/2020 4:45 AM CDT Assessment Noted Time PHQ-9 Depression Total Score: 3 11/22/2019 7:34 AM CDT documented as of this encounter Care Teams Supervisor International Reservations Relationship Specialty Start Date End Date Elsewhere, Pcp PCP - General Family Medicine 07/29/17 [facility] - Laboratory Medicine 04/12/[address] [address] documented as of this encounter
--- OUTSIDE RECORDS SUMMARY | 2022-04-13 12:20 | XMS_ITS | Encounter Summary ---
:1955 Author Organization [facility] Address [address] [place] [address] Care Team Providers Name Role Phone Elsewhere, Pcp Primary Care Provider Unavailable Encounter Details Date Type Department Care Team Description 10/30/2020 Lab Department of Kandace Chatman Conta ct With And (Suspected) Exposure To COVID-19; Laboratory Medicine and RAMONA, C. N.P., D.N.P. Encounter For Preprocedural Laboratory E xamination (COVID-19) Pathology, [place] [address] 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 - 10/30/2020 3:31 PM CDT The patient will be contacted if they are eligible for Monoclonal Antibody Infusion (MASS 1 or greater) and/or Remote Patient Monitoring (MASS 3 or greater). The [facility] Covid Care Team (CCT) sends general guidance about COVID-19 to all patients by letter or portal, except when a patient is hospitalized or resides in a [place] health care facility. CCT will call all adult patients at highest risk for severe complications of COVID-19 (MASS 3 or greater), those without an online services account, and those who require an official court interpreter. Any patient with a MASS score 1 or greater or a COVID-19 score 1 or greater may be at higher risk ofsevere disease. These patients will follow up directly with primary care. The primary care team willdecide if the patient needs a phone call or a follow up portal message to assess symptom severity, provide individualized guidance on symptom monitoring or symptom management, or to reinforce when to se ek care. [facility] encourages patients to follow up with their PCP with questions, worsening symptoms, or for symptom management. For questions, contact the [facility] Care Team ([facility]): Pager: [phone] In basket: P RST/[facility] COVID-19 POSITIVE Covid Care e-consult Components of the Monoclonal Antibody Selection Score (MASS) Compromised Immune System/Transplant = 4 points Chronic Kidney Disease on Dialysis = 4 points Age greater than or equal to 55 and chronic pulmonary disease = 3 points Age greater than or equal to 65 = 2 points Age greater than or equal to = 2 points Diabetes = 2 points Age greater than or equal to 55 AND cardiovascular disease = 2 points Age greater than or equal to 55 and hypertension = 1 point NOTE: At the time of testing, patients are instructed to obtain the result by calling the Paper[employer] result line or by checking the online services account. documented in this encounter Plan of Treatment Upcoming Encounters Date Type Specialty Care Team Description 04/24/2022 Appointment Laboratory Medicine Angélica Granger, P.A.-C. [address] [place] [address] [phone] 04/25/2022 Office Visit Otorhinolaryngology Dex Matta, RAMONA, C.N.P., M.S.N. [address] [place] [phone] 05/08/2022 Appointment Laboratory Medicine Angélica Granger, P.A.-C. [address] [place] [phone] 05/08/2022 Clinical Admitting/Central Communication Scheduling 05/10/2022 Appointment Radiology Jeremie Rose M.D. [address] [place] [phone] 05/10/2022 Comprehensive Visit Orthopedic Surgery Warner Graves M.D. [address] [place] [address] [phone] 05/22/2022 Appointment Laboratory Medicine Angélica Granger P.A.-C. [address] [place] [phone] 06/05/2022 Appointment Laboratory Medicine Angélica Granger P.A.-C. [address] [place] [phone] 06/19/2022 Appointment Laboratory Medicine Angélica Granger P.A.-C. [address] [place] [phone] 07/03/2022 Appointment Laboratory Medicine Angélica Granger P.A.-C. [address] [place] [phone] 07/17/2022 Appointment Laboratory Medicine Angélica Granger P.A.-C. [address] [place] [phone] 07/31/2022 Appointment Laboratory Medicine Angélica Granger P.A.-C. [address] [place] [phone] 08/14/2022 Appointment Laboratory Medicine Angélica Granger P.A.-C. [address] [place] [phone] 08/28/2022 Appointment Laboratory Medicine Angélica Granger P.A.-C. [address] [place] [phone] documented as of this encounter Procedures Procedure Name Priority Date/Time Associated Diagnosis Comme nts SARS-COV-2 Routine 11/14/2020 6:06 AM Results f or this LINEAGE, CLADE, S CDT procedure are in MUT, V the results section. SARS COV-2 RNA, Routine 10/30/2020 11:15 Contact With And Resu lts for this PCR, VARIES AM CDT (Suspected) Exposure procedu re are in To COVID-19 the results Encounter For section. Preprocedural Laboratory Examination (COVID-19) documented in this encounter Results SARS-CoV-2 Lineage, Clade, S Mut, V (11/14/2020 6:06 AM CDT) [facility] Method Time Signature SARS-CoV-2 PANGO B.1.1.7 11/22/2020 [facility] lineage 9:19 AM CDT SARS-CoV-2 20I 11/22/2020 [facility] Nextstrain clade 9:19 AM CDT S codon N501Y, 11/22/2020 [facility] mutations of A570D, 9:19 AM CDT interest D614G, P681H, T716I, H69-V70 deletion, Y144 deletion S mutations of S982A, 11/22/2020 [facility] unknown [id number], 9:19 AM CDT significance [id number] Comment: This/these mutation(s) was/were detected , but it/they has/have not been associated with an impact on viral trans mission, disease severity, or vaccine/therapeutic efficacy. SARS-CoV-2 Specimen Source Nasopharynx 11/22/2020 9:19 AM CDT [facility] Recent Positive PCR Result within 5 Yes 07/2020 9:19 AM CDT [facility] days? Comment: ----ADDITIONAL INFORMATION---- Please see https://[employer]/test-catalog/ Overview/455588 for explanation of test results. Testing was performed using the Seal Softwareeq SARS-CoV-2 Research Panel (Dotstudioz) on the aXess america Sequencer. Sequence results were analyzed with the most curr ent web versions of the Pangolin lineage assignment application https://c ov-lineages.org/pangolin.html and Nextclade clade assignment and mutation calling application https://clades.Oxyrane UKstrain.org This test was developed and its performa nce characteristics determined by [facility] in a manner consistent with CLIA requirements. This test has not been cleared or approved by the U.S. Mer d and Drug Administration. Specimen Anatomical Collection Method Collection Time Receive d Time (Source) Location / / Volume Laterality Varies 11/14/2020 6:06 AM 6:06 CDT AM CDT Arley Katz APRN.N.P., D.N.P. LAB MICROBIOL OGY - GENERAL ORDERABLES Performing Organization Address [facility] Phon e Number [facility] [address] [place], [place] [address] [facility] [place] [address] Laboratory Medicine and Pathology [address] [place] (ABNORMAL) SARS CoV-2 RNA, PCR, Varies Asymptomatic (10/30/2020 11:15 AM CDT) [facility] Method Time Signature SARS CoV-2 Swab, 10/30/2020 [facility]TL RNA, PCR, Nasopharynx 3:09 PM CDT Source SARS CoV-2 Detected (A) Undetected 10/30/2020 [facility]TL RNA, PCR 3:09 PM CDT Comment: SARS-CoV-2 RNA present. ----ADDITIONAL INFORMATION---- This RT-PCR test has received Emergency Use Authorization (EUA) by the U.S. Food and Drug Administration an d is used per supervisor metalizing's instructions. Performance characteristics were verified by [facility] in a manner consistent with CLIA requirements. Visit the CDC website: https://www.cdc.g ov/coronavirus/ for the most recent guidelines on Coron avirus testing. Fact Sheet for Healthcare Providers: https://www.fda.gov/media/754253/downloa d Fact Sheet for Patients: https://www.fda.gov/media/517683/downloa d Specimen Anatomical Collection Method Collection Time Receive d Time (Source) Location / / Volume Laterality Varies 10/30/2020 11:15 10/30/2020 (Nasopharynx) AM CDT 11:48 AM CDT Arley Katz APRN.N.P., D.N.P. LAB MICROBIOL OGY - GENERAL ORDERABLES Performing Organization Address City[facility] Code Phon e Number [facility] - [address] [place], [place] [address] [facility] [place] [address] Laboratories-[facility] [address] documented in this encounter Visit Diagnoses Diagnosis Contact With And (Suspected) Exposure To COVID-19 Encounter For Preprocedural Laboratory E xamination (COVID-19) documented in this encounter Additional Health Concerns Infection Onset Date Last Indicated Resolved Time COVID19 Pending 10/30/2020 10/30/2020 10/30/2020 3:10 PM CDT Assessment Noted Time PHQ-9 Depression Total Score: 3 11/22/2019 7:34 AM CDT documented as of this encounter Care Teams Dock Boss Relationship Specialty Start Date End Date Elsewhere, Pcp PCP - General Family Medicine 07/29/17 [facility] - Laboratory Medicine 04/12/20 [place] [address] documented as of this encounter
--- OUTSIDE RECORDS SUMMARY | 2022-04-13 12:20 | XMS_ITS | Encounter Summary ---
:1955 Author Organization [facility] Address [address] [place] [address] Care Team Providers Name Role Phone Elsewhere, Pcp Primary Care Provider Unavailable Reason for Visit Reason Comments Patient Education Encounter Details Date Type Department Care Team Description 10/31/2020 Clinical Communication Department of Stephy Mays Education Infusion Therapy in [place], [address] [place] [phone] [facility] [phone] [place], [place] (Work) [phone] Social History Tobacco Use Types Packs/Day Years [...] at Date Recorded 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 - 10/31/2020 10:02 AM CDT Patient request to be called back in half hour. documented in this encounter Plan of Treatment Upcoming Encounters Date Type Specialty Care Team Description 04/24/2022 Appointment Laboratory Medicine Angélica Granger, P.A.-CDemetrius [address] [place] [phone] 04/25/2022 Office Visit Otorhinolaryngology Dex Matta APRN, C.N.P., M.S.N. [address] [place] [phone] 05/08/2022 Appointment Laboratory Medicine Angélica Granger P.A.-C. [address] [place] [phone] 05/08/2022 Clinical Admitting/Central Communication Scheduling 05/10/2022 Appointment Radiology Jeremie Rose M.D. [address] [place] [phone] 05/10/2022 Comprehensive Visit Orthopedic Surgery Warner Graves M.D. [address] [place] [address] [phone] 05/22/2022 Appointment Laboratory Medicine Angélica Granger P.A.-C. [address] [place] [phone] 06/05/2022 Appointment Laboratory Medicine Angélica Granger P.A.-C. [address] [place] [phone] 06/19/2022 Appointment Laboratory Medicine Angélica Granger P.A.-C. [address] [place] [phone] 07/03/2022 Appointment Laboratory Medicine Angélica Granger P.A.-C. [address] [place] [phone] 07/17/2022 Appointment Laboratory Medicine Angélica Granger P.A.-C. [address] [place] [phone] 07/31/2022 Appointment Laboratory Medicine Angélica Granger P.A.-C. [address] [place] [phone] 08/14/2022 Appointment Laboratory Medicine Angélica Granger P.A.-C. [address] [place] [phone] 08/28/2022 Appointment Laboratory Medicine Angélica Granger P.A.-C. [address] [place] [phone] documented as of this encounter Visit Diagnoses Diagnosis COVID-19 Infection - Primary documented in this encounter Additional Health Concerns Infection Onset Date Last Indicated Resolved Time COVID19 10/30/2020 10/30/2020 11/19/2020 4:45 AM CDT Assessment Noted Time PHQ-9 Depression Total Score: 3 11/22/2019 7:34 AM CDT documented as of this encounter Care Teams Charter Bus Driver Relationship Specialty Start Date End Date Elsewhere, Pcp PCP - General Family Medicine 07/29/17 [facility] - Laboratory Medicine 04/12/20 [place] [address] documented as of this encounter
[2022-04-13 12:21] LABS: Slide Review Acceptable Review (Acceptable)
--- OUTSIDE RECORDS SUMMARY | 2022-04-13 12:21 | XMS_ITS | Encounter Summary ---
:1955 Author Organization [facility] Address [address] [place] [address] Care Team Providers Name Role Phone Elsewhere, Pcp Primary Care Provider Unavailable Reason for Referral Outpatient (Routine) - Closed Specialty Diagnoses / Procedures Referred By Contact Refer red To Contact Dermatology Diagnoses Squamous Cell [facility]cinoma [facility] Situ [facility] 1-4 sites Arley GREENE.N.PDemetrius, D.N.P. [address] [place] [phone] Referral ID Status Reason Start Date Expiration Date Visits Requ ested Visits Authorized [id number] Closed 10/04/2020 10/04/2021 1 1 Encounter Details Date Type Department Care Team Description 10/04/2020 Orders Only Department of Kandace Chatman Squamous Cell Dermatology in RAMONA Hauser C.N.PDemetrius, Carcinoma In Situ [place], [place] D.N.P. (Primary Dx) [address] [place] [address] [address] [place] [address] [phone] (Wo rk) Social History Tobacco Use Types [...] 12/15/2021 organizations such as christian groups, unions, fraITYZ or athletic groups, or school groups? 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 [address] [place] [phone] 05/08/2022 Appointment Laboratory Medicine Angélica Granger P.A.-C. [address] [place] [phone] 05/08/2022 Clinical Admitting/Central Communication Scheduling 05/10/2022 Appointment Radiology Jeremie Rose M.D. [address] [place] [phone] 05/10/2022 Comprehensive Visit Orthopedic Surgery Warner Graves M.D. [address] [place] [phone] 05/22/2022 Appointment Laboratory Medicine Angélica Granger P.A.-C. [address] [place] [phone] 06/05/2022 Appointment Laboratory Medicine Angélica Granger P.A.-C. [address] [place] [phone] 06/19/2022 Appointment Laboratory Medicine Angélica Granger P.A.-C. [address] [place] [phone] 07/03/2022 Appointment Laboratory Medicine Angélica Granger P.A.-C. [address] [place] [phone] 07/17/2022 Appointment Laboratory Medicine Angélica Granger P.A.-C. [address] [place] [phone] 07/31/2022 Appointment Laboratory Medicine Angélica Granger P.A.-C. [address] [place] [phone] 08/14/2022 Appointment Laboratory Medicine GunAngélica wilcox P.A.-C. [address] [place] [phone] 08/28/2022 Appointment Laboratory Medicine Angélica Granger P.A.-C. [address] [place] [phone] Scheduled Orders Name Type Priority Associated Diagnoses Order S chedule MAK [facility] 1-4 sites Dermatology Routine Squamous Cell Carcinom a Expected: 10/18/2020 In Situ (Approximate), Expires: 2023 documented as of this encounter Visit Diagnoses Diagnosis Squamous Cell Carcinoma In Situ - Primar y documented in this encounter Additional Health Concerns Assessment Noted Time PHQ-9 Depression Total Score: 3 11/22/2019 7:34 AM CDT documented as of this encounter Care Teams Mechanical Press Operator Relationship Specialty Start Date End Date Elsewhere, Pcp PCP - General Family Medicine 07/29/17 [facility] - Laboratory Medicine 04/12/[address] [address] documented as of this encounter
--- OUTSIDE RECORDS SUMMARY | 2022-04-13 12:21 | XMS_ITS | Encounter Summary ---
:1955 Author Organization [facility] Address [address] [place] [address] Care Team Providers Name Role Phone Elsewhere, Pcp Primary Care Provider Unavailable Encounter Details Date Type Department Care Team Description 10/02/2020 Clinical Communication Department of Elian Chatman Dermatology in A, RAMONA, C.N.P., [place], [place] D.N.P. 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 [address] [place] [phone] 04/25/2022 Office Visit Otorhinolaryngology Dex Matta APRN, C.N.P., M.S.N. [address] [place] [phone] 05/08/2022 Appointment Laboratory Medicine Angélica Granger P.A.-C. [address] [place] [phone] 05/08/2022 Clinical Admitting/Central Communication Scheduling 05/10/2022 Appointment Radiology Jeremie Rose M.D. [address] [place] [phone] 05/10/2022 Comprehensive Visit Orthopedic Surgery Warner Graves M.D. [address] [place] [phone] 05/22/2022 Appointment Laboratory Medicine Angélica Granger P.A.-C. [address] [place] [phone] 06/05/2022 Appointment Laboratory Medicine Angélica Granger P.A.-C. [address] [place] [phone] 06/19/2022 Appointment Laboratory Medicine Angélica Granger P.A.-C. [address] [place] [phone] 07/03/2022 Appointment Laboratory Medicine Angélica Granger P.A.-C. [address] [place] [phone] 07/17/2022 Appointment Laboratory Medicine Angélica Granger P.A.-C. [address] [place] [phone] 07/31/2022 Appointment Laboratory Medicine Angélica Granger P.A.-C. [address] [place] [phone] 08/14/2022 Appointment Laboratory Medicine Angélica Granger P.A.-C. [address] [place] [address] [phone] 08/28/2022 Appointment Laboratory Medicine Angélica Granger P.A.-C. [address] [place] [phone] documented as of this encounter Visit Diagnoses Not on filedocumented in this encounter Additional Health Concerns Assessment Noted Time PHQ-9 Depression Total Score: 3 11/22/2019 7:34 AM CDT documented as of this encounter Care Teams Hand Thermal Cutter Relationship Specialty Start Date End Date Elsewhere, Pcp PCP - General Family Medicine 07/29/17 [facility] - Laboratory Medicine 04/12/[address] [address] documented as of this encounter
--- OUTSIDE RECORDS SUMMARY | 2022-04-13 12:21 | XMS_ITS | Encounter Summary ---
:1955 Author Organization [facility] Address [address] [place] [address] Care Team Providers Name Role Phone Elsewhere, Pcp Primary Care Provider Unavailable Encounter Details Date Type Department Care Team Description 10/04/2020 Orders Only Department of Kandace Chatman Contact With And (Suspected) Exposure To COVID-19 (Primary Dx); Dermatology in A, LOCAL SUPERINTENDENT, C.N.P., Encounter For Preprocedural Laboratory Examination (COVID-19) [place], [place] D.N.P. 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 [address] [place] [phone] 04/25/2022 Office Visit Otorhinolaryngology Dex Matta, RAMONA, C.N.P., M.S.N. [address] [place] [address] [phone] 05/08/2022 Appointment Laboratory Medicine Angélica Granger, P.A.-C. [address] [place] [address] [phone] 05/08/2022 Clinical Admitting/Central Communication Scheduling 05/10/2022 Appointment Radiology Jeremie Rose M.D. [address] [place] [address] [phone] 05/10/2022 Comprehensive Visit Orthopedic Surgery Warner Graves M.D. [address] [place] [phone] 05/22/2022 Appointment Laboratory Medicine Angélica Granger P.A.-C. [address] [place] [phone] 06/05/2022 Appointment Laboratory Medicine Angélica Granger P.A.-C. [address] [place] [phone] 06/19/2022 Appointment Laboratory Medicine Angélica Granger P.A.-C. [address] [place] [phone] 07/03/2022 Appointment Laboratory Medicine Angélica Granger P.A.-C. [address] [place] [phone] 07/17/2022 Appointment Laboratory Medicine Angélica Granger P.A.-C. [address] [place] [phone] 07/31/2022 Appointment Laboratory Medicine Angélica Granger P.A.-C. [address] [place] [phone] 08/14/2022 Appointment Laboratory Medicine Angélica Granger P.A.-C. [address] [place] [phone] 08/28/2022 Appointment Laboratory Medicine Angélica Granger P.A.-C. [address] [place] [phone] documented as of this encounter Results (ABNORMAL) SARS CoV-2 RNA, PCR, Varies Asymptomatic (10/30/2020 11:15 AM CDT) [facility] Method Time Signature SARS CoV-2 Swab, 10/30/2020 DTL RNA, PCR, Nasopharynx 3:09 PM CDT Source SARS CoV-2 Detected (A) Undetected 10/30/2020 DTL RNA, PCR 3:09 PM CDT Comment: SARS-CoV-2 RNA present. ----ADDITIONAL INFORMATION---- This RT-PCR test has received Emergency Use Authorization (EUA) by the U.S. Food and Drug Administration an d is used per checkroom chief's instructions. Performance characteristics were verified by [facility] in a manner consistent with CLIA requirements. Visit the CDC website: https://www.cdc.g ov/coronavirus/ for the most recent guidelines on Coron avirus testing. Fact Sheet for Healthcare Providers: https://www.fda.gov/media/280668/downloa d Fact Sheet for Patients: https://www.fda.gov/media/035180/downloa d Specimen Anatomical Collection Method Collection Time Receive d Time (Source) Location / / Volume Laterality Varies 10/30/2020 11:15 10/30/2020 (Nasopharynx) AM CDT 11:48 AM CDT Kandace Cahtman APRN, C.N.P., D.N.P. LAB MICROBIOL OGY - GENERAL ORDERABLES Performing Organization Address City/State/ZIP Code Phon e Number [facility] - [address] [place], [place] [address] [facility] [place] [address] [facility] [address] documented in this encounter Visit Diagnoses Diagnosis Contact With And (Suspected) Exposure To COVID-19 - Primary Encounter For Preprocedural Laboratory E xamination (COVID-19) documented in this encounter Additional Health Concerns Assessment Noted Time PHQ-9 Depression Total Score: 3 11/22/2019 7:34 AM CDT documented as of this encounter Care Teams College Administrator Relationship Specialty Start Date End Date Elsewhere, Pcp PCP - General Family Medicine 07/29/17 [facility] - Laboratory Medicine 04/12/[address] [address] documented as of this encounter
--- OUTSIDE RECORDS SUMMARY | 2022-04-13 12:21 | XMS_ITS | Encounter Summary ---
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 [address] [place] [phone] 04/25/2022 Office Visit Otorhinolaryngology Dex Matta APRN, C.N.P., M.S.N. [address] [place] [phone] 05/08/2022 Appointment Laboratory Medicine Angélica Granger P.A.-C. [address] [place] [phone] 05/08/2022 Clinical Admitting/Central Communication Scheduling 05/10/2022 Appointment Radiology Jeremie Rose M.D. [address] [place] [phone] 05/10/2022 Comprehensive Visit Orthopedic Surgery Warner Graves M.D. [address] [place] [phone] 05/22/2022 Appointment Laboratory Medicine Angélica Granger P.A.-C. [address] [place] [phone] 06/05/2022 Appointment Laboratory Medicine Angélica Granger P.A.-C. [address] [place] [address] [phone] 06/19/2022 Appointment Laboratory Medicine Angélica Granger P.A.-C. [address] [place] [phone] 07/03/2022 Appointment Laboratory Medicine Angélica Granger P.A.-C. [address] [place] [phone] 07/17/2022 Appointment Laboratory Medicine Angélica Granger P.A.-C. [address] [place] [address] [phone] 07/31/2022 Appointment Laboratory Medicine Angélica Granger P.A.-C. [address] [place] [phone] 08/14/2022 Appointment Laboratory Medicine Angélica Granger P.A.-C. [address] [place] [phone] 08/28/2022 Appointment Laboratory Medicine Angélica Granger P.A.-CDemetrius [address] [place] [address] [phone] documented as of this encounter Procedures Procedure Name Priority Date/Time Associated Comments Diagnosis DERMATOLOGY IMAGE Routine 10/02/2020 12:00 Result s for this EXAM AM CDT procedure are i n the results section. documented in this encounter Results Ears 506-Dermatology Image Exam (10/02/2020 12:00 AM CDT) Specimen (Source) Anatomical Location Collection Method / Collectio n Time Received Time / Laterality Volume Narrative IIMS - 10/03/2020 11:51 AM CDT This order has been created [...] documented as of this encounter Care Teams Engine Oiler Relationship Specialty Start Date End Date Elsewhere, Pcp PCP - General Family Medicine 07/29/17 [facility] - Laboratory Medicine 04/12/20 [place] [phone] documented as of this encounter
--- OUTSIDE RECORDS SUMMARY | 2022-04-13 12:21 | XMS_ITS | Encounter Summary ---
:1955 Author Organization [facility] Address [address] [place] [address] Care Team Providers Name Role Phone Elsewhere, Pcp Primary Care Provider Unavailable Reason for Visit Reason Comments Phone Contact Encounter Details Date Type Department Care Team Description 10/06/2020 Clinical Communication Irena Gamez Phone Contact Center for R, R.N. Transplantation and [address] [place] [address] Clinical [facility] in [place], [place] [phone] [place] [address] [place] [phone] (Work) [phone] Social History Tobacco Use Types Packs/Day Years [...] or relatives? How often do you attend moravian or More than 4 times per year 12/15/2021 anglican services? 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 - 10/06/2020 3:16 PM CDT Faxed new lab order and sent out a hard copy for financial secretary to mail. Telephone Encounter - Mayra Luevano - 10/06/2020 11:33 AM CDT Clinic has received the lab draw orders.[facility] has now stopped doing kit draws, at this time lab is asking that we fax a new order for drawing the tacrolimus level. Please fax to: [phone] No thacker on this he will be having labs drawn next Friday 10/13 Thank you documented in this encounter Plan of Treatment Upcoming Encounters Date Type Specialty Care Team Description 04/24/2022 Appointment Laboratory Medicine Angélica Granger P.A.-C. [address] [place] [phone] 04/25/2022 Office Visit Otorhinolaryngology Dex Matta APRN, C.N.P., M.S.N. [address] [place] [phone] 05/08/2022 Appointment Laboratory Medicine Angélica Granger P.A.-C. [address] [place] [phone] 05/08/2022 Clinical Admitting/Central Communication Scheduling 05/10/2022 Appointment Radiology Jeremie Rose M.D. [address] [place] [phone] 05/10/2022 Comprehensive Visit Orthopedic Surgery Warner Graves M.D. [address] [place] [phone] 05/22/2022 Appointment Laboratory Medicine Angélica Granger P.A.-C. [address] [place] [phone] 06/05/2022 Appointment Laboratory Medicine Angélica Granger P.A.-C. [address] [place] [address] [phone] 06/19/2022 Appointment Laboratory Medicine Angélica Granger P.A.-C. [address] [place] [phone] 07/03/2022 Appointment Laboratory Medicine Angélica Granger P.A.-C. [address] [place] [phone] 07/17/2022 Appointment Laboratory Medicine Angélica Granger P.A.-C. [address] [place] [phone] 07/31/2022 Appointment Laboratory Medicine Angélica Granger P.A.-C. [address] [place] [phone] 08/14/2022 Appointment Laboratory Medicine Angélica Granger P.A.-C. [address] [place] [phone] 08/28/2022 Appointment Laboratory Medicine Angélica Granger P.A.-C. [address] [place] [phone] documented as of this encounter Visit Diagnoses Not on filedocumented in this encounter Additional Health Concerns Assessment Noted Time PHQ-9 Depression Total Score: 3 11/22/2019 7:34 AM CDT documented as of this encounter Care Teams Proofer Apprentice Relationship Specialty Start Date End Date Elsewhere, Pcp PCP - General Family Medicine 07/29/17 [facility] - Laboratory Medicine 04/12/[address] [address] documented as of this encounter
--- OUTSIDE RECORDS SUMMARY | 2022-04-13 12:21 | XMS_ITS | Encounter Summary ---
:1955 Author Organization [facility] Address [address] [place] [address] Care Team Providers Name Role Phone Elsewhere, Pcp Primary Care Provider Unavailable Reason for Visit Reason Comments COVID Inquiry Encounter Details Date Type Department Care Team Description 09/04/2020 Clinical Communication Angélica ChingID Inquiry Center for J, P.A.-C. 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 Follow local process (End Screening) Testing Recommendation Endpoint Is testing recommended? : Not recommended to test Plan: Endpoint recommendation: Followed regional OTG *Reminder if sending patient for testing in [facility] or [facility], route encounter to the correct testing pool. documented in this encounter Plan of Treatment Upcoming Encounters Date Type Specialty Care Team Description 04/24/2022 Appointment Laboratory Medicine Angélica Granger P.ASky [address] [place] [phone] 04/25/2022 Office Visit Otorhinolaryngology Dex Matta APRN, C.N.P., M.S.N. [address] [place] [phone] 05/08/2022 Appointment Laboratory Medicine Angélica Granger P.A.-C. [address] [place] [phone] 05/08/2022 Clinical Admitting/Central Communication Scheduling 05/10/2022 Appointment Radiology Jeremie Rose M.D. [address] [place] [phone] 05/10/2022 Comprehensive Visit Orthopedic Surgery Warner Graves M.D. [address] [place] [phone] 05/22/2022 Appointment Laboratory Medicine Angélica Granger P.A.-C. [address] [place] [phone] 06/05/2022 Appointment Laboratory Medicine Angélica Granger P.A.-C. [address] [place] [phone] 06/19/2022 Appointment Laboratory Medicine Angélica Granger P.A.-C. [address] [place] [phone] 07/03/2022 Appointment Laboratory Medicine Angélica Granger P.A.-C. [address] [place] [phone] 07/17/2022 Appointment Laboratory Medicine Angélica Granger P.A.-C. [address] [place] [phone] 07/31/2022 Appointment Laboratory Medicine GunAngélica wilcox P.A.-C. [address] [place] [phone] 08/14/2022 Appointment Laboratory Medicine Angélica Granger P.A.-C. [address] [place] [phone] 08/28/2022 Appointment Laboratory Medicine Angélica Granger P.A.-C. [address] [place] [phone] documented as of this encounter Visit Diagnoses Not on filedocumented in this encounter Additional Health Concerns Assessment Noted Time PHQ-9 Depression Total Score: 3 11/22/2019 7:34 AM CDT documented as of this encounter Care Teams Group Fitness Department Head Relationship Specialty Start Date End Date Elsewhere, Pcp PCP - General Family Medicine 07/29/17 [facility] - Laboratory Medicine 04/12/[address] [address] documented as of this encounter
--- OUTSIDE RECORDS SUMMARY | 2022-04-13 12:21 | XMS_ITS | Encounter Summary ---
:1955 Author Organization [facility] Address [address] [place] [address] Care Team Providers Name Role Phone Elsewhere, Pcp Primary Care Provider Unavailable Reason for Visit Reason Comments Communication psych order Encounter Details Date Type Department Care Team Description 09/15/2020 [facility] for Lilia [facility] ) Transplantation and R.N., Clinical Regeneration C.C.T.C. 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 Patient is all set Telephone Encounter - Lilia Hdz R.N., C.C.T.C. - 09/15/2020 8:41 AM CDT Mood Telephone Encounter - Meena Aguilar - 09/15/2020 8:33 AM CDT Good morning, For patients annual which psych should patient be seen in? Thank you Nayely documented in this encounter Plan of Treatment Upcoming Encounters Date Type Specialty Care Team Description 04/24/2022 Appointment Laboratory Medicine Angélica Granger P.A.-C. [address] [place] [address] 04/25/2022 Office Visit Otorhinolaryngology GoschDex APRN, C.N.P., M.S.N. [address] [place] [phone] 05/08/2022 Appointment Laboratory Medicine Angélica Granger P.A.-C. [address] [place] [phone] 05/08/2022 Clinical Admitting/Central Communication Scheduling 05/10/2022 Appointment Radiology Jeremie Roes M.D. [address] [place] [phone] 05/10/2022 Comprehensive Visit Orthopedic Surgery Warner Graves M.D. [address] [place] [phone] 05/22/2022 Appointment Laboratory Medicine Angélica Granger P.A.-C. [address] [place] [phone] 06/05/2022 Appointment Laboratory Medicine Anéglica Granger P.A.-C. [address] [place] [phone] 06/19/2022 Appointment Laboratory Medicine Angélica Granger P.A.-C. [address] [place] [phone] 07/03/2022 Appointment Laboratory Medicine Angélica Granger P.A.-C. [address] [place] [phone] 07/17/2022 Appointment Laboratory Medicine Angélica Granger P.A.-C. [address] [place] [phone] 07/31/2022 Appointment Laboratory Medicine Angélica Granger P.A.-C. [address] [place] [phone] 08/14/2022 Appointment Laboratory Medicine Angélica Granger P.A.-C. [address] [place] [address] 08/28/2022 Appointment Laboratory Medicine Angélica Granger P.A.-C. [address] [place] [phone] documented as of this encounter Visit Diagnoses Not on filedocumented in this encounter Additional Health Concerns Assessment Noted Time PHQ-9 Depression Total Score: 3 11/22/2019 7:34 AM CDT documented as of this encounter Care Teams Accounts Payable Coordinator Relationship Specialty Start Date End Date Elsewhere, Pcp PCP - General Family Medicine 07/29/17 [facility] - Laboratory Medicine 04/12/[address] [address] documented as of this encounter
--- OUTSIDE RECORDS SUMMARY | 2022-04-13 12:21 | XMS_ITS | Encounter Summary ---
:1955 Author Organization [facility] Address [address] [place] [address] Care Team Providers Name Role Phone Elsewhere, Pcp Primary Care Provider Unavailable Reason for Visit Reason Comments Med Refill Encounter Details Date Type Department Care Team Description 10/01/2020 [facility] Salvador Camejo, Med Refill Transplantation and Clinical M.D . 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 documented in this encounter Plan of Treatment Upcoming Encounters Date Type Specialty Care Team Description 04/24/2022 Appointment Laboratory Medicine Angélica Granger P.A.-C. [address] [place] [phone] 04/25/2022 Office Visit Otorhinolaryngology Dex Matta, RAMONA, C.N.P., M.S.N. [address] [place] [phone] 05/08/2022 Appointment Laboratory Medicine Angélica Granger P.A.-CDemetrius [address] [place] [phone] 05/08/2022 Clinical Admitting/Central Communication Scheduling 05/10/2022 Appointment Radiology Jeremie Rose M.D. [address] [place] [phone] 05/10/2022 Comprehensive Visit Orthopedic Surgery Warner Graves M.D. [address] [place] [phone] 05/22/2022 Appointment Laboratory Medicine Angélica Granger P.A.-C. [address] [place] [phone] 06/05/2022 Appointment Laboratory Medicine Angélica Granger P.A.-C. [address] [place] [phone] 06/19/2022 Appointment Laboratory Medicine Angélica Granger P.A.-C. [address] [place] [phone] 07/03/2022 Appointment Laboratory Medicine Angélica Granger P.A.-C. [address] [place] [phone] 07/17/2022 Appointment Laboratory Medicine Angélica Granger P.A.-C. [address] [place] [phone] 07/31/2022 Appointment Laboratory Medicine Angélica Granger P.A.-C. [address] [place] [phone] 08/14/2022 Appointment Laboratory Medicine Angélica Granger P.A.-C. [address] [place] [phone] 08/28/2022 Appointment Laboratory Medicine Angélica Granger P.A.-C. [address] [place] [phone] documented as of this encounter Visit Diagnoses Not on filedocumented in this encounter Additional Health Concerns Assessment Noted Time PHQ-9 Depression Total Score: 3 11/22/2019 7:34 AM CDT documented as of this encounter Care Teams Director Intelligence Analysis Programs Relationship Specialty Start Date End Date Elsewhere, Pcp PCP - General Family Medicine 07/29/17 [facility] - Laboratory Medicine 04/12/[address] [address] documented as of this encounter
--- OUTSIDE RECORDS SUMMARY | 2022-04-13 12:21 | XMS_ITS | Encounter Summary ---
:1955 Author Organization [facility] Address [address] [place] [address] Care Team Providers Name Role Phone Elsewhere, Pcp Primary Care Provider Unavailable Reason for Visit Appointment Request (Routine) - Closed Specialty Diagnoses / Procedures Referred By Contact Refer red To Contact Dermatology Diagnoses Lesion Skin Ear Referral ID Status Reason Start Date Expiration Date Visits Requ ested Visits Authorized [id number] Closed 10/02/2020 10/02/2021 1 1 Encounter Details Date Type Department Care Team Description 10/02/2020 Office Visit Department of Kandace Chatman Tumor Sk in Uncertain Behavior (Primary Dx); Dermatology in [place], RAMONA, C.N.P., Milo Ped [place], [place] D.N.P. 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 - 10/02/2020 2:20 PM CDT CHIEF COMPLAINT / REASON FOR VISIT Skin lesion on ear Fungus on feet Supervised by: Dr. Alena Berry ([phone]) Supervising dairy nutrition consultant, Dr. Alena Berry, was immediately available but consultation was not required. HISTORY OF PRESENT ILLNESS Mr. Bruce Singh is a 65 y.o. male who presents today for examination of a skin lesion involving the right conchal bowl and itching on the dorsal feet. 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 He is currently taking CellCept, prednisone, and Prograf. The patient has a history of nonmelanoma skin cancer. The patient was last seen in the department in May 2020 for a full skin exam. Lesion of concern #1: Location: right conchal bowl Onset: 6 weeks Symptoms: skin lesion that has been asymptomatic Treatment completed: none Lesion of concern #2: Location: dorsal feet Onset: week Symptoms: Itchy feet Treatment: Lotrimin twice daily over past 3 days He has no further cutaneous concerns today. He declined a full skin exam today stating he would liketo return in November for a full skin exam. Allergies Allergen Reactions ??? Cefixime Diarrhea ??? Ciprofloxacin Other (see comments) Tendon pain ??? Citalopram Other (see comments) michell ??? Erythromycin Base Other (see comments) Due to medications ??? Olanzapine Other (see comments) Joint pain ??? Quetiapine Edema Muscle pain and swelling Current Outpatient Medications: ??? acetaminophen (TYLENOL) 500 [...] daily., Disp: 270 tablet, Rfl: 3 ??? traZODone (DESYREL) 100 mg tablet, Take 1 tablet by mouth at bedtime as needed for sleep. Maintenance , Disp: , Rfl: PAST MEDICAL HISTORY History of nonmelanoma skin cancer FAMILY HISTORY Father, history of skin cancer, unknown type PHYSICAL EXAM General: Awake, alert, in no acute distress, and with appropriate affect. Skin: I have examined the right conchal bowl and feet per patient request. Involving the right conchal bowl is a 5 mm flesh colored/yellow macule with overlying thick crust. Examination of the bilateral dorsal feet reveals resolving areas of ecchymosis with fine, dry flaky skin. There are a few areas o f white, macerated skin noted between the webspaces. Examination of the right great toenail reveals yellow, thickening of the nail. IMPRESSION / REPORT / PLAN #1 Skin tumor uncertain behavior, right conchal bowl, rule out nonmelanoma skin cancer versus seborrheic keratosis versus hypertrophic actinic keratosis Photograph obtained. Shave biopsy performed. Results communicated in a letter on the [facility] portal. CONSENT Discussed the risks, benefits, alternatives, and the necessity of other members of the healthcare team participating in the procedure. All questions answered and consent given. UNIVERSAL PROTOCOL Procedural pause conducted to verify: correct patient identity, procedure to be performed, and as applicable, correct side and site, correct patient position, and availability of implants, special equipment, or special requirements. PROCEDURE INFORMATION Shave biopsy. We explained the potential diagnosis and recommended that we obtain a biopsy. The risks and benefitsof the procedure were discussed, and the patient consented to these procedures. Using 1% lidocaine with epinephrine for local anesthesia, a shave biopsy was obtained from the right conchal bowl. Biopsysubmitted to Dermatopathology for H&E. Special stains will be performed as indicated. The bleeding was well controlled with application of aluminum chloride. Dressing was applied, and wound care instructions were explained. Biopsy results and any further recommendations will be communicated to thepatient by letter. Patient given pamphlet [id number]. #2 Likely Tinea Pedis #3 Probable Onychomycosis I recommend the patient continue to use over the counter Lotrimin twice a day on the dorsal feet andbetween the webspaces of the toes for 3-4 weeks, or until clear, plus 1 additional week after he notices clearing. Follow up with dermatology if the irritation persists. All questions answered. PATIENT EDUCATION Ready to learn. No apparent learning barriers were identified. Learning preferences include listening. Explained diagnosis and treatment plan; patient/guardian of patient expressed understanding of thecontent. Scribed for Kandace Chatman APRN, C.N.P., D.N.PDemetrius by Aicha Limon on 10/02/2020, 2:17 PM CDT. I personally performed the services described in this documentation, as scribed in my presence, and it is both accurate and complete. documented in this encounter Plan of Treatment Upcoming Encounters Date Type Specialty Care Team Description 04/24/2022 Appointment Laboratory Medicine Angélica Granger P.A.-CDemetrius [address] [place] [phone] 04/25/2022 Office Visit Otorhinolaryngology Dex Matta APRN, C.N.Saeed, M.S.N. [address] [place] [phone] 05/08/2022 Appointment Laboratory Medicine Angélica Granger P.A.-CDemetrius [address] [place] [phone] 05/08/2022 Clinical Admitting/Central Communication Scheduling 05/10/2022 Appointment Radiology Jeremie Rose M.D. [address] [place] [phone] 05/10/2022 Comprehensive Visit Orthopedic Surgery Warner Graves M.D. [address] [place] [phone] 05/22/2022 Appointment Laboratory Medicine Angélica Granger P.A.-C. [address] [place] [phone] 06/05/2022 Appointment Laboratory Medicine Angélica Granger P.A.-C. [address] [place] [phone] 06/19/2022 Appointment Laboratory Medicine Angélica Granger P.A.-C. [address] [place] [phone] 07/03/2022 Appointment Laboratory Medicine Angélica Granger P.A.-C. [address] [place] [phone] 07/17/2022 Appointment Laboratory Medicine Angélica Granger P.A.-C. [address] [place] [phone] 07/31/2022 Appointment Laboratory Medicine Angélica Granger P.A.-C. [address] [place] [phone] 08/14/2022 Appointment Laboratory Medicine Angélica Granger P.A.-C. [address] [place] [phone] 08/28/2022 Appointment Laboratory Medicine Angélica Granger P.A.-C. [address] [place] [phone] documented as of this encounter Procedures Procedure Name Priority Date/Time Associated Diagnosis Comme nts DERMATOPATHOLOGY Routine 10/02/2020 2:08 PM Tumor Skin Uncerta in Results for this CDT Behavior procedure are i n the results section. documented in this encounter Results Dermatopathology (10/02/2020 2:08 PM CDT) Component Value Ref Test Analysis Performed At [facility] Method Time Signature 10/04/2020 [facility] 2:19 PM CDT Report Nancy I. 10/04/2020 [facility] electronically Sada Lawrence 2:19 PM CDT signed by Gross Description Received in formalin labeled with the patient's n gonzalez, 10/04/2020 [facility] medical record number, and right conchal bowl is a 0.7 x 2:19 PM CDT 0.5 x 0.1 cm grady-white skin shave biopsy. ??There is a pale grady pigmented lesion diffusely involved on the skin surface. ??Specimen is bisected and submitted entirely in cassette A1. Additionally, received in same container is a 0.5 x 0.5 x 0.1 cm pale grady soft tissue with no definitively identifiable skin surface. ??Specimen is bisected and submitted entirely in cassette A1 with the remaining specimen. Grossed by JT. Interpretation FINAL DIAGNOSIS 10/04/2020 PDR A. 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 Kandace Chatman APRN, C.N.P., D.N.P. LAB PATH DERM ORDERABLES Performing Organization Address City/State/ZIP Code Phon e Number [facility] - [address] [place], [place] [address] [place] [address] [facility] [address] documented in this encounter Visit Diagnoses Diagnosis Tumor Skin Uncertain Behavior - Primary Tinea Pedis documented in this encounter Additional Health Concerns Assessment Noted Time PHQ-9 Depression Total Score: 3 11/22/2019 7:34 AM CDT documented as of this encounter Care Teams Chamber Walker Relationship Specialty Start Date End Date Elsewhere, Pcp PCP - General Family Medicine 07/29/17 [facility] - Laboratory Medicine 10/21/20 [place] [phone] documented as of this encounter
--- OUTSIDE RECORDS SUMMARY | 2022-04-13 12:21 | XMS_ITS | Encounter Summary ---
:1955 Author Organization [facility] Address [address] [place] [address] Care Team Providers Name Role Phone Elsewhere, Pcp Primary Care Provider Unavailable Encounter Details Date Type Department Care Team Description 10/03/2020 Orders Only Jessika Olivarez Liver (HCC) (Primary Dx); Center for C, R.N. 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 [address] [place] [phone] 04/25/2022 Office Visit Otorhinolaryngology Dex Matta APRN, C.N.P., M.S.N. [address] [place] [phone] 05/08/2022 Appointment Laboratory Medicine Angélica Granger P.A.-CDemetrius [address] [place] [phone] 05/08/2022 Clinical Admitting/Central Communication Scheduling 05/10/2022 Appointment Radiology Jeremie Rose M.D. [address] [place] [phone] 05/10/2022 Comprehensive Visit Orthopedic Surgery Warner Graves M.D. [address] [place] [phone] 05/22/2022 Appointment Laboratory Medicine Angélica Granger P.A.-C. [address] [place] [phone] 06/05/2022 Appointment Laboratory Medicine Angélica Granger P.A.-C. [address] [place] [phone] 06/19/2022 Appointment Laboratory Medicine Angélica Granger P.A.-C. [address] [place] [phone] 07/03/2022 Appointment Laboratory Medicine Angélica Granger P.A.-C. [address] [place] [phone] 07/17/2022 Appointment Laboratory Medicine Angélica Granger P.A.-C. [address] [place] [phone] 07/31/2022 Appointment Laboratory Medicine Angélica Granger P.A.-C. [address] [place] [phone] 08/14/2022 Appointment Laboratory Medicine Angélica Granger P.A.-C. [address] [place] [phone] 08/28/2022 Appointment Laboratory Medicine Angélica Granger P.A.-C. 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 - Laboratory Medicine 04/12/20 [place] [phone] documented as of this encounter
--- OUTSIDE RECORDS SUMMARY | 2022-04-13 12:21 | XMS_ITS | Encounter Summary ---
:1955 Author Organization [facility] Address [address] [place] [address] Care Team Providers Name Role Phone Elsewhere, Pcp Primary Care Provider Unavailable Encounter Details Date Type Department Care Team Description 10/06/2020 Orders Only Jessika Olivarez Liver (HCC) (Primary Dx); Center for C, R.N. 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 [address] [place] [phone] 04/25/2022 Office Visit Otorhinolaryngology Dex Matta APRN, C.N.P., M.S.N. [address] [place] [phone] 05/08/2022 Appointment Laboratory Medicine Angélica Granger P.A.-CDemetrius [address] [place] [phone] 05/08/2022 Clinical Admitting/Central Communication Scheduling 05/10/2022 Appointment Radiology Jeremie Rose M.D. [address] [place] [phone] 05/10/2022 Comprehensive Visit Orthopedic Surgery Warner Graves M.D. [address] [place] [phone] 05/22/2022 Appointment Laboratory Medicine Angélica Granger P.A.-C. [address] [place] [phone] 06/05/2022 Appointment Laboratory Medicine Angélica Granger P.A.-C. [address] [place] [phone] 06/19/2022 Appointment Laboratory Medicine Angélica Granger P.A.-C. [address] [place] [phone] 07/03/2022 Appointment Laboratory Medicine Angélica Granger P.A.-C. [address] [place] [phone] 07/17/2022 Appointment Laboratory Medicine Angélica Granger P.A.-C. [address] [place] [phone] 07/31/2022 Appointment Laboratory Medicine Angélica Granger P.A.-C. [address] [place] [phone] 08/14/2022 Appointment Laboratory Medicine Angélica Granger P.A.-C. [address] [place] [phone] 08/28/2022 Appointment Laboratory Medicine Angélica Granger P.A.-C. 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
--- OUTSIDE RECORDS SUMMARY | 2022-04-13 12:21 | XMS_ITS | Encounter Summary ---
:1955 [facility] Address [address] [place] [address] Care Team Providers Name Role Phone Elsewhere, Pcp Primary Care Provider Unavailable Reason for Visit Reason Comments Phone Contact Encounter Details Date Type Department Care Team Description 10/03/2020 Clinical Communication Irena Gamez Phone Contact Center for R, R.N. 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 - 10/06/2020 10:45 AM CDT Re-faxed to Clinic 10/06/20 at 10:46. Placed copy in mailbox for assistant secretary to send out. Telephone Encounter - Mayra Luevano - 10/06/2020 9:27 AM CDT Please re-fax standing lab orders to [phone] [facility]. Patient stated that the clinic still has yet received the lab orders at this time. Patient is wondering if a hard copy could be mailed to him as well. Thank you Telephone Encounter - Jessika Hebert R.N. - 10/03/2020 11:06 AM CDT Faxed new standing lab orders to fax number listed 10/03/20 at 11:06. Telephone Encounter - Meena Aguilar - 10/03/2020 9:26 AM CDT Please fax standing lab orders to [phone] [facility]. Patient requests they say every 3 months and as directed. Portal message once complete please Thanks Nayely documented in this encounter Plan of Treatment Upcoming Encounters Date Type Specialty Care Team Description 04/24/2022 Appointment Laboratory Medicine Angélica Granger P.A.-C. [address] [place] [phone] 04/25/2022 Office Visit Otorhinolaryngology Dex Matta APRN, C.N.P., M.S.N. [address] [place] [phone] 05/08/2022 Appointment Laboratory Medicine Angélica Granger P.A.-C. [address] [place] [phone] 05/08/2022 Clinical Admitting/Central Communication Scheduling 05/10/2022 Appointment Radiology Jeremie Rose M.D. [address] [place] [phone] 05/10/2022 Comprehensive Visit Orthopedic Surgery Warner Graves M.D. [address] [place] [phone] 05/22/2022 Appointment Laboratory Medicine Angélica Granger P.A.-CDemetrius [address] [place] [phone] 06/05/2022 Appointment Laboratory Medicine Angélica Granger P.A.-CDemetrius [address] [place] [address] [phone] 06/19/2022 Appointment Laboratory Medicine Angélica Granger P.A.-C. [address] [place] [phone] 07/03/2022 Appointment Laboratory Medicine Angélica Granger P.A.-C. [address] [place] [phone] 07/17/2022 Appointment Laboratory Medicine Angélica Granger P.A.-C. [address] [place] [phone] 07/31/2022 Appointment Laboratory Medicine Angélica Granger P.A.-C. [address] [place] [phone] 08/14/2022 Appointment Laboratory Angélica Royal P.A.-C. [address] [place] [phone] 08/28/2022 Appointment Laboratory Angélica Royal P.A.-C. [address] [place] [phone] documented as of this encounter Visit Diagnoses Not on filedocumented in this encounter Additional Health Concerns Assessment Noted Time PHQ-9 Depression Total Score: 3 11/22/2019 7:34 AM CDT documented as of this encounter Care Teams Houseperson Relationship Specialty Start Date End Date Elsewhere, Pcp PCP - General Family Medicine 07/29/17 [facility] - Laboratory Medicine 04/12/[address] [address] documented as of this encounter
--- OUTSIDE RECORDS SUMMARY | 2022-04-13 12:21 | XMS_ITS | Encounter Summary ---
:1955 Author Organization [facility] Address [address] [place] [address] Care Team Providers Name Role Phone Elsewhere, Pcp Primary Care Provider Unavailable Reason for Visit Reason Comments COVID Inquiry Encounter Details Date Type Department Care Team Description 09/14/2020 Clinical Communication Marilynn Ty, COVID Inquiry Center for M.D. 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 documented in this encounter Plan of Treatment Upcoming Encounters Date Type Specialty Care Team Description 04/24/2022 Appointment Laboratory Medicine Angélica Granger P.A.-C. [address] [place] [phone] 04/25/2022 Office Visit Otorhinolaryngology Dex Matta, RAMONA, C.N.P., M.S.N. [address] [place] [phone] 05/08/2022 Appointment Laboratory Medicine Angélica Granger P.A.-C. [address] [place] [phone] 05/08/2022 Clinical Admitting/Central Communication Scheduling 05/10/2022 Appointment Radiology Jeremie Rose M.D. [address] [place] [phone] 05/10/2022 Comprehensive Visit Orthopedic Surgery Warner Graves M.D. [address] [place] [phone] 05/22/2022 Appointment Laboratory Medicine Angélica Granger P.A.-C. [address] [place] [phone] 06/05/2022 Appointment Laboratory Medicine Angélica Granger P.A.-C. [address] [place] [phone] 06/19/2022 Appointment Laboratory Medicine Angélica Granger P.A.-C. [address] [place] [address] [phone] 07/03/2022 Appointment Laboratory Medicine Angélica Granger P.A.-C. [address] [place] [phone] 07/17/2022 Appointment Laboratory Medicine Angélica Granger P.A.-C. [address] [place] [phone] 07/31/2022 Appointment Laboratory Medicine Angélica Granger P.A.-C. [address] [place] [phone] 08/14/2022 Appointment Laboratory Medicine Angélica Granger P.A.-C. [address] [place] [phone] 08/28/2022 Appointment Laboratory Medicine Angélica Granger P.A.-C. [address] [place] [phone] documented as of this encounter Visit Diagnoses Not on filedocumented in this encounter Additional Health Concerns Assessment Noted Time PHQ-9 Depression Total Score: 3 11/22/2019 7:34 AM CDT documented as of this encounter Care Teams Finish Off Operator Relationship Specialty Start Date End Date Elsewhere, Pcp PCP - General Family Medicine 07/29/17 [facility] - Laboratory Medicine 04/12/[address] [address] documented as of this encounter
--- OUTSIDE RECORDS SUMMARY | 2022-04-13 12:21 | XMS_ITS | Encounter Summary ---
:1955 Author Organization [facility] Address [address] [place] [address] Care Team Providers Name Role Phone Elsewhere, Pcp Primary Care Provider Unavailable Reason for Referral Transplant (Routine) - Closed Specialty Diagnoses / Procedures Referred By Contact Refer red To Contact [facility] Zofia Leyva M.D. [address] [place] [phone] Referral ID Status Reason Start Date Expiration Date Visits Requ ested Visits Authorized [id number] Closed 10/03/2020 10/03/2021 1 1 Encounter Details Date Type Department Care Team Description 10/03/2020 [facility] and Zofia Leyva M.D. Clinical Regeneration in [address] [place] [address] [place] [phone] [place] [address] [phone] Social History Tobacco Use Types Packs/Day Years [...] 12/15/2021 organizations such as restorationist groups, unions, fraKonnectAgain or athletic groups, or school groups? 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 [address] [place] [phone] 05/08/2022 Appointment Laboratory Medicine Angélica Granger P.A.-CDemetrius [address] [place] [phone] 05/08/2022 Clinical Admitting/Central Communication Scheduling 05/10/2022 Appointment Radiology Jeremie Rose M.D. [address] [place] [phone] 05/10/2022 Comprehensive Visit Orthopedic Surgery Warner Graves M.D. [address] [place] [phone] 05/22/2022 Appointment Laboratory Medicine Angélica Granger P.A.-C. [address] [place] [phone] 06/05/2022 Appointment Laboratory Medicine Angélica Granger P.A.-C. [address] [place] [phone] 06/19/2022 Appointment Laboratory Medicine Angélica Granger P.A.-C. [address] [place] [phone] 07/03/2022 Appointment Laboratory Medicine Angélica Granger P.A.-C. [address] [place] [phone] 07/17/2022 Appointment Laboratory Medicine Angélica Granger P.A.-C. [address] [place] [phone] 07/31/2022 Appointment Laboratory Medicine Angélica Granger P.A.-C. [address] [place] [phone] 08/14/2022 Appointment Laboratory Medicine Angélica Granger P.A.-C. [address] [place] [phone] 08/28/2022 Appointment Laboratory Medicine Angélica Granger P.A.-C. [address] [place] [address] Scheduled Referrals Name Type Priority Associated Order Schedule Diagnoses Transplant Kidney Outpatient Referral Routine Exp ected: office visit 10/03/2020 (clinic) (Approximate), Expires: 10/04/2023 documented as of this encounter Visit Diagnoses Not on filedocumented in this encounter Additional Health Concerns Assessment Noted Time PHQ-9 Depression Total Score: 3 11/22/2019 7:34 AM CDT documented as of this encounter Care Teams Home Decorator Relationship Specialty Start Date End Date Elsewhere, Pcp PCP - General Family Medicine 07/29/17 [facility] - Laboratory Medicine 04/12/[address] [address] documented as of this encounter
--- OUTSIDE RECORDS SUMMARY | 2022-04-13 12:21 | XMS_ITS | Encounter Summary ---
:1955 Author Organization [facility] Address [address] [place] [address] Care Team Providers Name Role Phone Elsewhere, Pcp Primary Care Provider Unavailable Reason for Referral MRI/CAT/PET Scan (Routine) - Closed Specialty Diagnoses / Procedures Referred By Contact Refer red To Contact Radiology Diagnoses Pneumonia Shortness Of Breath Connie Aaron [facility] Procedures CT Chest without IV Contrast M.B.B.S. 200 [place] [address] Referral ID Status Reason Start Date Expiration Date Visits Requ ested Visits Authorized [id number] Closed 10/03/2020 10/03/2021 1 1 MRI/CAT/PET Scan (Routine) - Closed Specialty Diagnoses / Procedures Referred By Contact Refer red To Contact Radiology Diagnoses Shortness Of Breath Cough Unspecified Type Connie Aaron [facility] Procedures CT Sinuses without IV Contrast M.B.B.S. 200 [place], [place] [address] Referral ID Status Reason Start Date Expiration Date Visits Requ ested Visits Authorized [id number] Closed 10/03/2020 10/03/2021 1 1 Encounter Details Date Type Department Care Team Description 10/03/2020 Orders Only Division of Pulmonary Connie Aaron (Primary Dx); Medicine in [place] M.B.B. S. 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 [address] [place] [phone] 04/25/2022 Office Visit Otorhinolaryngology Dex Matta APRN C.NDemetriusP., M.S.N. [address] [place] [phone] 05/08/2022 Appointment Laboratory Medicine Angélica Granger P.A.-C. [address] [place] [phone] 05/08/2022 Clinical Admitting/Central Communication Scheduling 05/10/2022 Appointment Radiology Jeremie Rose M.D. [address] [place] [phone] 05/10/2022 Comprehensive Visit Orthopedic Surgery Warner Graves M.D. [address] [place] [phone] 05/22/2022 Appointment Laboratory Medicine Angélica Granger P.A.-C. [address] [place] [phone] 06/05/2022 Appointment Laboratory Medicine Angélica Granger P.A.-C. [address] [place] [phone] 06/19/2022 Appointment Laboratory Medicine Angélica Granger P.A.-C. [address] [place] [phone] 07/03/2022 Appointment Laboratory Medicine Angélica Granger P.A.-C. [address] [place] [phone] 07/17/2022 Appointment Laboratory Medicine Angélica Granger P.A.-C. [address] [place] [phone] 07/31/2022 Appointment Laboratory Medicine Angélica Granger P.A.-C. [address] [place] [phone] 08/14/2022 Appointment Laboratory Medicine Angélica Granger P.A.-C. [address] [place] [phone] 08/28/2022 Appointment Laboratory Medicine Angélica Granger P.A.-C. [address] [place] [phone] documented as of this encounter Results CT [...] t he body of the report. Connie HEREDIA CT PROCEDURES CT Sinuses without IV Contrast [...] negative. IMPRESSION: No significant interval change. Connie CottrellB.S. IMG CT PROCEDURES Mycobacterial Culture (10/12/2020 12:12 PM CDT) Pathoss health gist Method Time Signature Mycobacterial No growth 11/23/2020 DTL Culture after 42 1:01 PM CDT days of incubation . Specimen Anatomical Collection Method Collection Time Receive d Time (Source) Location / / Volume Laterality Sputum (Sputum) 10/12/2020 12:12 10/13/19 21 PM CDT 12:55 PM CDT Comment: Specimen Source Site: Sputum Connie CottrellB.S. LAB MICROBIOLOGY - GENERAL ORDERABLES Performing Organization Address City/State/ZIP [facility] Phon e Number [facility] - [address] [place], [place] [address] [facility] [place] [address] [facility] 200 [facility] Acid Fast Smear For Mycobacterium (10/12/2020 12:12 PM CDT) Patholo gist Method Time Signature Acid Fast Smear Negative. 10/12/2020 DTL For Mycobacterium 10:22 PM CDT Specimen Anatomical Collection Method Collection Time Receive d Time (Source) Location / / Volume Laterality Sputum (Sputum) 10/12/2020 12:12 10/13/19 21 PM CDT 12:55 PM CDT Comment: Specimen Source Site: Sputum Connie RocaSDemetrius LAB MICROBIOLOGY - GENERAL ORDERABLES Performing Organization Address City/[facility]/ZIP Code Phon e Number [facility] - [address] [place], [place] [address] [facility] [place] [address] [facility] [address] [facility] [place] (ABNORMAL) Fungal Culture, Routine (10/12/2020 12:12 PM CDT) Patholo gist Method Time Signature Fungal ASPERGILLUS FUMIGATUS COMPLEX 11/06/2020 DTL Culture, Few 2:12 PM CDT Routine (A) Comment: Susceptibility testing is not indicated for all molds. Infectious Diseases consult is required to order mold susceptibility testing. Fungal Culture, Routine YEAST, NOT Cr. neoformans, N OT Cr. gattii and NOT C. auris 11/06/2020 2:12 PM CDT DTL Few (A) Specimen Anatomical Collection Method Collection Time Receive d Time (Source) Location / / Volume Laterality Sputum (Sputum) 10/12/2020 12:12 10/13/19 21 PM CDT 12:55 PM CDT Comment: Specimen Source Site: Sputum Connie RocaSDemetrius LAB MICROBIOLOGY - GENERAL ORDERABLES Performing Organization Address City/State/ZIP Code Phon e Number [facility] - [address] [place], [place] [address] [facility] [place] [address] [facility] [address] [facility] [place] [facility] Fungal Smear (10/12/2020 12:12 PM CDT) P athologist Signature Fungal Smear Negative. 10/12/2020 DTL 10:39 PM CDT Specimen Anatomical Collection Method Collection Time Receive d Time (Source) Location / / Volume Laterality Sputum (Sputum) 10/12/2020 12:12 10/13/19 21 PM CDT 12:55 PM CDT Comment: Specimen Source Site: Sputum Connie Barron LAB MICROBIOLOGY - GENERAL ORDERABLES Performing Organization Address City/State/ZIP Code Phon e Number [facility] - [address] [place], [place] [address] [facility] [place] [address] [facility] [address] (ABNORMAL) Bacterial Culture, [...] DAVID (MCG/M L) <=4 mcg/mL: Susceptible Connie RocaSDemetrius LAB MICROBIOLOGY - GENERAL ORDERABLES Performing Organization Address City/[facility] Phon e Number [facility] - 200 [place], [place] [address] [place], [place] [id number] [place] [address] Gram Stain (10/12/2020 12:12 PM CDT) [facility] gist Method Time Signature Gram Stain Mixed efrem. 10/12/2020 DTL White blood cells, Moderate. 3:06 PM CDT Epithelial cells, Few. Specimen Anatomical Collection Method Collection Time Receive d Time (Source) Location / / Volume Laterality Sputum (Sputum) 10/12/2020 12:12 10/13/19 21 PM CDT 12:55 PM CDT Comment: Specimen Source Site: Sputum Connie RocaSDemetrius LAB MICROBIOLOGY - GENERAL ORDERABLES Performing Organization Address [facility] Phon e Number [facility] [id number] [place] [address] documented in this encounter Visit Diagnoses Diagnosis Pneumonia - Primary Shortness Of Breath Cough Unspecified Type Shortness Of Breath Cough Unspecified Type Pneumonia documented in this encounter Additional Health Concerns Assessment Noted Time PHQ-9 Depression Total Score: 3 11/22/2019 7:34 AM CDT documented as of this encounter Care Teams Pipelines Superintendent Relationship Specialty Start Date End Date Elsewhere, Pcp PCP - General Family Medicine 07/29/17 [facility] - Laboratory Medicine 04/12/[address] [address] documented as of this encounter
--- OUTSIDE RECORDS SUMMARY | 2022-04-13 12:21 | XMS_ITS | Encounter Summary ---
:1955 Author Organization [facility] Address [address] [place] [address] Care Team Providers Name Role Phone Elsewhere, Pcp Primary Care Provider Unavailable Reason for Referral Transplant (Routine) - Closed Specialty Diagnoses / Procedures Referred By Contact Refer red To Contact Transplant Surgery / Diagnoses Transplant Liver (HCC) Medication Therapy Chcf Not Anticoagulant Cirrhosis Cryptogenic (HCC) Screening Examination Prostate Cancer Screening Examination Skin Cancer Willis Mcderm[facility] Transplant M.DDemetrius [address] [place] [address] Referral ID Status Reason Start Date Expiration Date Visits Requ ested Visits Authorized [id number] Closed 09/14/2020 09/14/2021 1 1 Transplant (Routine) - Closed Specialty Diagnoses / Procedures Referred By Contact Refer red To Contact Transplant Surgery / Diagnoses Transplant Liver (HCC) Medication Therapy Logger Not Anticoagulant Cirrhosis Cryptogenic (HCC) Screening Examination Prostate Cancer Screening Examination Skin Cancer Willis Mcdermott [facility] Transplant M.DDemetrius [address] [place] [address] Referral ID Status Reason Start Date Expiration Date Visits Requ ested Visits Authorized [id number] Closed 09/14/2020 09/14/2021 1 1 Outpatient (Routine) - Closed Specialty Diagnoses / Procedures Referred By Contact Refer red To Contact Diagnoses Transplant Liver (HCC) Medication Therapy Chcf Not Anticoagulant Cirrhosis Cryptogenic (HCC) Screening Examination Prostate Cancer Screening Examination Skin Cancer Willis Mcdermott M.D. [facility] Procedures Short renal clearance: Iothalamate (Renal Studies Unit) [address] [place], [place] [phone] Referral ID Status Reason Start Date Expiration Date Visits Requ ested Visits Authorized [id number] Closed 09/14/2020 09/14/2021 1 1 Outpatient (Routine) - Closed Specialty Diagnoses / Procedures Referred By Contact Refer red To Contact Diagnoses Transplant Liver (HCC) Medication Therapy Chcf Not Anticoagulant Cirrhosis Cryptogenic (HCC) Screening Examination Prostate Cancer Screening Examination Skin Cancer Willis Mcdermott M.D. [facility] Procedures US Liver Transplant [address] [place], [place] [address] Referral ID Status Reason Start Date Expiration Date Visits Requ ested Visits Authorized [id number] Closed 09/14/2020 09/14/2021 1 1 Transplant (Routine) - Closed Specialty Diagnoses / Procedures Referred By Contact Refer red To Contact Transplant Surgery / Diagnoses Transplant Liver (HCC) Medication Therapy Logger Not Anticoagulant Cirrhosis Cryptogenic (HCC) Screening Examination Prostate Cancer Screening Examination Skin Cancer Willis Mcdermott [facility] Transplant M.Louie [address] [place] [address] Referral ID Status Reason Start Date Expiration Date Visits Requ ested Visits Authorized [id number] Closed 09/14/2020 09/14/2021 1 1 Transplant (Routine) - Closed Specialty Diagnoses / Procedures Referred By Contact Refer red To Contact Transplant Surgery / Diagnoses Transplant Liver (HCC) Medication Therapy Logger Not Anticoagulant Cirrhosis Cryptogenic (HCC) Screening Examination Prostate Cancer Screening Examination Skin Cancer Willis Mcdermott [facility] Transplant M.Louie [address] [place] [address] Referral ID Status Reason Start Date Expiration Date Visits Requ ested Visits Authorized [id number] Closed 09/14/2020 09/14/2021 1 1 Encounter Details Date Type Department Care Team Description 09/14/2020 Orders Only Curt Goldberg, Carlisle splant Liver (HCC) (Primary Dx); [facility] Lilia Azevedo R.N., Medication Therapy Logger Not Anticoagulant; and Clinical Regeneration C.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 C. 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 [address] [place] [phone] 04/25/2022 Office Visit Otorhinolaryngology Dex Matta APRN, C.N.P., M.S.N. [address] [place] [phone] 05/08/2022 Appointment Laboratory Medicine Angélica Granger P.A.-C. [address] [place] [phone] 05/08/2022 Clinical Admitting/Central Communication Scheduling 05/10/2022 Appointment Radiology Jeremie Rose M.D. [address] [place] [phone] 05/10/2022 Comprehensive Visit Orthopedic Surgery Warner Graves M.D. [address] [place] [address] [phone] 05/22/2022 Appointment Laboratory Medicine Angélica Granger P.A.-C. [address] [place] [phone] 06/05/2022 Appointment Laboratory Medicine Angélica Granger P.A.-C. [address] [place] [phone] 06/19/2022 Appointment Laboratory Medicine Angélica Granger P.A.-C. [address] [place] [phone] 07/03/2022 Appointment Laboratory Medicine Angélica Granger P.A.-C. [address] [place] [phone] 07/17/2022 Appointment Laboratory Medicine Angélica Granger P.A.-C. [address] [place] [phone] 07/31/2022 Appointment Laboratory Medicine Angélica Granger P.A.-C. [address] [place] [phone] 08/14/2022 Appointment Laboratory Medicine Angélica Granger P.A.-C. [address] [place] [phone] 08/28/2022 Appointment Laboratory Medicine Angélica Granger P.A.-C. [address] [place] [phone] Scheduled Orders Name Type Priority Associated Diagnoses Order S chedule Short renal clearance: Procedures Routine Transplan t Liver (HCC) Expected: Iothalamate (Renal Medication Therapy [place] g 11/27/2020 Studies Unit) Term Not Anticoa gulant (Approximate), Cirrhosis Cryptogenic s: 09/14/2021 (HCC) Screening Examination Prostate Cancer Screening Examination Skin Cancer Scheduled Referrals Name Type Priority Associated Diagnoses Order S chedule Transplant Liver Outpatient Referral Routine Transplant Liver Expected: office visit (HCC) 11/27/2020 (clinic) Medication Therapy (Approxim ate), Chcf Not Expires: Anticoagulant 09/14/2021 Cirrhosis Cryptogenic (HCC ) Screening Examination Prostate Cancer Screening Examination Skin Cancer Transplant Liver Outpatient Referral Routine Transplant Liver Expected: office visit (HCC) 11/27/2020 (clinic) Medication Therapy (Approxim ate), Logger Not Expires: Anticoagulant 09/14/2021 Cirrhosis Cryptogenic (HCC ) Screening Examination Prostate Cancer Screening Examination Skin Cancer Transplant Liver Outpatient Referral Routine Transplant Liver Expected: office visit (HCC) 11/27/2020 (clinic) Medication Therapy (Approxim ate), Logger Not Expires: Anticoagulant 09/14/2021 Cirrhosis Cryptogenic (HCC ) Screening Examination Prostate Cancer Screening Examination Skin Cancer Transplant Liver Outpatient Referral Routine Transplant Liver Expected: office visit (HCC) 11/27/2020 (clinic) Medication Therapy (Approxim ate), Logger Not Expires: Anticoagulant 09/14/2021 Cirrhosis Cryptogenic (HCC ) Screening Examination Prostate Cancer Screening Examination Skin Cancer documented as of this encounter Results US Liver Transplant (11/27/2020 [...] parenchyma bila terally. Willis HEREDIA US PROCEDURES DX Chest AP or PA and Lateral [...] of the skeleton. Chest otherwise negative. Willis Mcdermott M.D. IMG DIAGNOSTIC IMAGING PROCE DURES (ABNORMAL) Urinalysis with Microscopic: Urine, Voided (11/27/2020 7:13 AM CDT) [facility] Method Time Signature Source Urine, 11/27/2020 DTL Urine, 7:50 AM CDT Voided Color, U Yellow 11/27/2020 DTL 7:50 AM CDT Clarity, U Clear 11/27/2020 DTL 7:50 AM CDT Protein, U 79 (H) <26 mg/dL 11/27/2020 DTL 9:03 AM CDT Protein/Osmola 2.72 (H) <0.42 11/27/2020 DTL lity ratio 9:21 AM CDT Predicted 24 2447 mg/24 h 11/27/2020 DTL Hr Protein 9:21 AM CDT Predicted 777-7710 mg/24 h 11/27/2020 DTL Range 9:21 AM CDT Comment Micro done 11/27/2020 DTL on <2.5 mL 9:46 AM CDT Specimen Anatomical Collection Method Collection Time Receive d Time (Source) Location / / Volume Laterality Urine (Urine, 11/27/2020 7:13 AM 11/28/19 7:50 Voided) CDT AM CDT Willis Mcdermott M.D. LAB URINE ORDERABLES Performing Organization Address [facility] Phon e Number [facility] - [address] [place], [place] [address] [place] [address] [facility] [address] (ABNORMAL) Tacrolimus, B (11/27/2020 7:11 AM CDT) athologist Signature Tacrolimus, B 1.3 (L) 5.0-15.0 11/27/2020 [facility] (Trough) 12:37 PM CDT ng/mL Comment: ----ADDITIONAL INFORMATION---- Target [...] its performa nce characteristics determined by [facility] in a manner consistent with CLIA requirements. This test has not been cleared or approved by the U.S. Mer d and Drug Administration. Specimen Anatomical Collection Method Collection Time Receive d Time (Source) Location / / Volume Laterality Blood (Blood, 11/27/2020 7:11 AM 11/28/19 8:55 Venous) CDT AM CDT Willis Mcdermott M.D. LAB BLOOD NON ADD-ON Performing Organization Address City/[facility]/ZIP Code Phon e Number [facility] [address] [place], [place] [address] [facility] [place] [address] Laboratory Medicine and Pathology [address] [place] PSA (Prostate-Specific Antigen) Screen (11/27/2020 7:11 AM CDT) athologist [facility] Prostate-Specif 0.37 <=4.5 ng/mL 11/27/2020 [facility] ic Ag 8:26 AM CDT Comment: ----ADDITIONAL INFORMATION---- The testing method [...] Location / / Volume Laterality Blood (Blood, 11/27/2020 7:11 AM 11/28/19 21 7:27 Venous) CDT AM CDT Willis Mcdermott M.D. LAB BLOOD ADD-ON Performing Organization Address City/[facility] Phon e Number [facility] - [address] [place], [place] [address] [place] [address] [facility] [address] [facility] Mononucleosis RNA/DNA (11/27/2020 7:11 AM CDT) Analysis Performed At Patho logist Time Signature [place] RNA/DNA Collected DEFAULT 11/27/2020 HS EDTA x 2 7:11 AM CDT [place] RNA/DNA Collected DEFAULT 11/27/2020 S NaHep 7:11 AM CDT Specimen Anatomical Collection Method Collection Time Receive d Time (Source) Location / / Volume Laterality Blood (Blood, 11/27/2020 7:11 AM 11/28/19 21 7:11 Venous) CDT AM CDT Narrative [facility] - 11/27/2020 7:11 AM CDT Specimen Information: Specimen ID: [id number] Specimen Type: Blood Specimen Collection Start Date: ??7:11 AM Specimen Received Date: 11/27/2020 ??7:11 AM Specimen ID: [id number] Specimen Type: Blood Specimen Collection Start Date: ??7:11 AM Specimen Received Date: 11/27/2020 ??7:11 AM Specimen ID: [id number] Specimen Type: Blood Specimen Collection Start Date: ??7:11 AM Specimen Received Date: 11/27/2020 ??7:11 AM Willis Mcdermott M.D. LAB BLOOD NON ADD-ON Performing Organization Address City/[facility] Code Phon e Number [facility] - [address] [place], [place] [address] [place] [address] [facility] [address] Organ Liver TX (11/27/2020 7:11 AM CDT) Analysis Performed At Patho logist Time Signature Organ Liver [place] Collected DEFAULT 11/27/2020 HSS 7:11 AM CDT Specimen Anatomical Collection Method Collection Time Receive d Time (Source) Location / / Volume Laterality Blood (Blood, 11/27/2020 7:11 AM 11/28/19 7:11 Venous) CDT AM CDT Willis Mcdermott M.D. LAB BLOOD NON ADD-ON Performing Organization Address City/State/ZIP [facility] Phon e Number [facility] - [address] [place], [place] [address] [facility] [address] [facility] [address] (ABNORMAL) Uric Acid (11/27/2020 7:11 AM CDT) P athologist Signature Uric Acid, S 8.6 (H) 3.7 - 8.0 11/27/2020 DTL mg/dL 8:26 AM CDT Specimen Anatomical Collection Method Collection Time Receive d Time (Source) Location / / Volume Laterality Blood (Blood, 11/27/2020 7:11 AM 11/28/19 21 7:27 Venous) CDT AM CDT Willis Mcdermott M.D. LAB BLOOD ADD-ON Performing Organization Address City/State/[facility] Code Phon e Number [facility] - [address] [place], [place] [address] [place] [address] [facility] [address] (ABNORMAL) S-TSH (Thyroid-Stimulating Hormone - Sensitive) (11/27/2020 7:11 AM CDT) P athologist Signature TSH, Sensitive 5.9 (H) 0.3 - 4.2 11/27/2020 DTL mIU/L 8:26 AM CDT Specimen Anatomical Collection Method Collection Time Receive d Time (Source) Location / / Volume Laterality Blood (Blood, 11/27/2020 7:11 AM 11/28/19 21 7:27 Venous) CDT AM CDT Willis Mcdermott M.D. LAB BLOOD ADD-ON Performing Organization Address City/[facility] Phon e Number [facility] - [address] Bilirubin, Direct (11/27/2020 7:11 AM CDT) P athologist Signature Bilirubin, <0.2 0.0 - 0.3 11/27/2020 DTL Direct, S mg/dL 8:26 AM CDT Specimen Anatomical Collection Method Collection Time Receive d Time (Source) Location / / Volume Laterality Blood (Blood, 11/27/2020 7:11 AM 11/28/19 7:27 Venous) CDT AM CDT Willis Mcdermott M.D. LAB BLOOD ADD-ON Performing Organization Address City/[facility] Phon e Number [facility] - [address] Phosphorus Inorganic (11/27/2020 7:10 AM CDT) P athologist Signature Phosphorus 4.1 2.5 - 4.5 11/27/2020 DTL (Inorganic), S mg/dL 8:24 AM CDT Specimen Anatomical Collection Method Collection Time Receive d Time (Source) Location / / Volume Laterality Blood (Blood, 11/27/2020 7:10 AM 11/28/19 7:27 Venous) CDT AM CDT Willis Mcdermott M.D. LAB BLOOD ADD-ON Performing Organization Address City/[facility] Phon e Number [facility] - [address] [place], [place] [address] [place] [address] (ABNORMAL) CBC no call back, reflex T/S HGB <8 (11/27/2020 7:10 AM CDT) [facility] Method Time Signature Hemoglobin 8.9 (L) 13.2 - 11/27/2020 DTL 16.6 g/dL 7:41 AM CDT Hematocrit 27.7 (L) 38.3 - 11/27/2020 DTL 48.6 % 7:41 AM CDT Erythrocytes 2.94 (L) 4.35 - 11/27/2020 DTL 5.65 7:41 AM CDT x10(12)/L MCV 94.2 78.2 - 11/27/2020 DTL 97.9 fL 7:41 AM CDT RBC Distrib Width 13.6 11.8 - 11/27/2020 DTL 14.5 % 7:41 AM CDT Platelet Count 228 135 - 317 11/27/2020 DTL x10(9)/L 7:41 AM CDT Leukocytes 4.0 3.4 - 9.6 11/27/2020 DTL x10(9)/L 7:41 AM CDT Neutrophils 2.90 1.56 - 11/27/2020 DTL 6.45 7:41 AM CDT x10(9)/L Lymphocytes 0.62 (L) 0.95 - 11/27/2020 DTL 3.07 7:41 AM CDT x10(9)/L Monocytes 0.41 0.26 - 11/27/2020 DTL 0.81 7:41 AM CDT x10(9)/L Eosinophils 0.06 0.03 - 11/27/2020 DTL 0.48 7:41 AM CDT x10(9)/L Basophils <0.03 0.01 - 11/27/2020 DTL 0.08 7:41 AM CDT x10(9)/L Specimen Anatomical Collection Method Collection Time Receive d Time (Source) Location / / Volume Laterality Blood (Blood, 11/27/2020 7:10 AM 11/28/19 21 7:27 Venous) CDT AM CDT Willis Mcdermott M.D. LAB BLOOD NON ADD-ON Performing Organization Address City/State/ZIP Code Phon e Number [facility] - [address] [place] [address] [address] [place] [address] [facility] [address] [facility] Prothrombin Time (PT) (11/27/2020 7:10 AM CDT) P athologist Signature Prothrombin 11.6 9.4 - 12.5 11/27/2020 DTL Time, P sec 7:42 AM CDT INR 1.1 0.9 - 1.1 11/27/2020 DTL 7:42 AM CDT Comment: ----ADDITIONAL INFORMATION---- Standard intensity warfarin therapeutic range: 2.0 to 3.0 ?? High intensity warfarin therapeutic rang e: 2.5 to 3.5 Specimen Anatomical Collection Method Collection Time Receive d Time (Source) Location / / Volume Laterality Blood (Blood, 11/27/2020 7:10 AM 11/28/19 21 7:28 Venous) CDT AM CDT Willis Mcdermott M.D. LAB BLOOD ADD-ON Performing Organization Address City/[facility] Phon e Number [facility] - [address] [place] [address] [address] (ABNORMAL) Magnesium (11/27/2020 7:10 AM CDT) athologist Signature Magnesium, S 2.9 (H) 1.7 - 2.3 11/27/2020 DTL mg/dL 8:24 AM CDT Specimen Anatomical Collection Method Collection Time Receive d Time (Source) Location / / Volume Laterality Blood (Blood, 11/27/2020 7:10 AM 11/28/19 21 7:27 Venous) CDT AM CDT Willis Mcdermott M.D. LAB BLOOD ADD-ON Performing Organization Address City/[facility] Phon e Number [facility] - [address] [address] [address] 25-Hydroxyvitamin D2 and D3 (11/27/2020 7:10 AM CDT) P athologist Signature 25-Hydroxy D2 <4.0 ng/mL 11/27/2020 SDSC 10:51 PM CDT 25-Hydroxy D3 57 ng/mL 11/27/2020 [facility]SC 10:51 PM CDT 25-Hydroxy D 57 ng/mL 11/27/2020 [facility] Total 10:51 PM CDT Comment: Interpretation: 51-80 ng/mL (increased r isk of hypercalciuria) ----REFERENCE VALUE---- 25-HYDROXY D TOTAL (D2+D3) Optimum level s in the healthy population are 20-50, patients with bone disease may benefit from higher levels within this r itzel. ----ADDITIONAL INFORMATION---- This test was developed and its performa nce characteristics determined by [facility] in a manner consistent with CLIA requirements. This test has not been cleared or approved by the U.S. Mer d and Drug Administration. Specimen Anatomical Collection Method Collection Time Receive d Time (Source) Location / / Volume Laterality Blood (Blood, 11/27/2020 7:10 AM 11/28/19 21 Venous) CDT 10:23 AM CDT Willis Mcdermott M.D. LAB BLOOD ADD-ON Performing Organization Address City/[facility]/ZIP [facility] Phon e Number [facility] [address] [place], [place] [address] [facility] [place] [address] Laboratory Medicine and Pathology [address] [place] (ABNORMAL) Iron and Total Iron-Binding Capacity (11/27/2020 7:10 AM CDT) athologist Signature Iron 42 (L) 50 - 150 11/27/2020 DTL mcg/dL 8:24 AM CDT Total Iron 234 (L) 250 - 400 11/27/2020 DTL Binding mcg/dL 8:24 AM CDT Capacity Percent 18 14 - 50 % 11/27/2020 DTL Saturation 8:24 AM CDT Specimen Anatomical Collection Method Collection Time Receive d Time (Source) Location / / Volume Laterality Blood (Blood, 11/27/2020 7:10 AM 11/28/19 7:27 Venous) CDT AM CDT Willis Mcdermott M.D. LAB BLOOD ADD-ON Performing Organization Address City/State/ZIP [facility] Phon e Number [facility] - [address] [place], [place] [address] [place] [address] [facility] [address] (ABNORMAL) Hemoglobin A1c (11/27/2020 7:10 AM CDT) P athologist Signature Hemoglobin A1c, 5.8 (H) 4.0 - 5.6 11/27/2020 DTL B % 8:19 AM CDT Comment: Hemoglobin A1c values of 5.7-6.4 percent indicate an increased risk for developing diabetes m ellitus. In diabetic patients, HbA1c goals should be discussed with healthcare provider. Specimen Anatomical Collection Method Collection Time Receive d Time (Source) Location / / Volume Laterality Blood (Blood, 11/27/2020 7:10 AM 11/28/19 7:27 Venous) CDT AM CDT Willis Mcdermott M.D. LAB BLOOD ADD-ON Performing Organization Address City/State/ZIP Code Phon e Number [facility] - [address] [place], [place] [address] [place] [address] [facility] [address] [facility] (ABNORMAL) Lipid Panel (11/27/2020 7:10 AM CDT) athologist Signature Cholesterol, 129 mg/dL 11/27/2020 DTL Total 8:24 AM CDT Comment: ----REFERENCE VALUE---- Desirable: < 200 Borderline high: 200 - 239 High: > or = 240 Triglycerides 200 (H) mg/dL 11/27/2020 8:24 AM CDT DTL Comment: ----REFERENCE VALUE---- Normal: <150 Borderline high: 150-199 High: 200-499 Very high: > or =500 Cholesterol, HDL, S 36 (L) >=40 mg/dL 11/27/2020 8:24 AM CDT DTL Calculated LDL 53 mg/dL 11/27/2020 8:24 AM CDT DT L Comment: ----REFERENCE VALUE---- Desirable: <100 Above Desirable: 100-129 Borderline high: 130-159 High: 160-189 Very high: > or =190 Cholesterol, Non-HDL, Calculated 93 mg/dL 021 8:24 AM CDT DTL Comment: ----REFERENCE VALUE---- Desirable: <130 Above Desirable: 130-159 Borderline high: 160-189 High: 190-219 Very high: > or =220 Specimen Anatomical Collection Method Collection Time Receive d Time (Source) Location / / Volume Laterality Blood (Blood, 11/27/2020 7:10 AM 11/28/19 7:27 Venous) CDT AM CDT Willis Mcdermott M.D. LAB BLOOD ADD-ON Performing Organization Address City/State/ZIP Code Phon e Number [facility] - [address] [place], [place] [address] [place] [address] [facility] [address] (ABNORMAL) Comprehensive Metabolic Panel (11/27/2020 7:10 AM CDT) P athologist Signature Potassium, S CANCELED mmol/L 11/27/2020 DTL 7:27 AM CDT Comment: Test cancelled. ??Duplicate test request . Result canceled by the ancillary. Sodium, S CANCELED mmol/L 11/27/2020 7:27 AM CDT DTL Comment: Test cancelled. ??Duplicate test request . Result canceled by the ancillary. Chloride, S CANCELED mmol/L 11/27/2020 7:27 AM CDT DTL Comment: Test cancelled. ??Duplicate test request . Result canceled by the ancillary. Bicarbonate, S CANCELED mmol/L 11/27/2020 7:27 AM CDT DT L Comment: Test cancelled. ??Duplicate test request . Result canceled by the ancillary. BUN (Blood Urea Nitrogen), 63 (H) 8 - 24 mg/dL 11/27/2020 8:24 AM CDT DTL S Creatinine 4.03 (H) 0.74 - 1.35 mg/dL 11/27/2020 8:24 AM CD T DTL eGFR-Non Black/ <15 (L) >=60 mL/min/BSA 11/27/2020 8:24 AM CDT DTL [place] Comment: ----ADDITIONAL INFORMATION---- Estimated GFR calculated using the 2009 CKD_EPI creatinine equation. eGFR-Black/ 17 (L) >=60 mL/min/BSA 2020 8:24 AM CDT DTL Comment: ----ADDITIONAL INFORMATION---- Estimated GFR calculated using the 2009 CKD_EPI creatinine equation. Calcium, Total, S 8.5 (L) 8.8 - 10.2 mg/dL 11/27/2020 8:24 AM CDT DTL Glucose, S 125 70 - 140 mg/dL 11/27/2020 8:24 AM CDT D TL Protein, Total, S 6.0 (L) 6.3 - 7.9 g/dL 11/27/2020 8:24 A M CDT DTL Albumin, S 4.1 3.5 - 5.0 g/dL 11/27/2020 8:24 AM CDT D TL Aspartate Aminotransferase 22 8 - 48 U/L 11/27/2020 8 :24 AM CDT DTL (AST), S Alkaline Phosphatase, S 106 40 - 129 U/L 11/27/2020 8: 24 AM CDT DTL Alanine Aminotransferase 21 7 - 55 U/L 11/27/2020 8:2 4 AM CDT DTL (ALT), S Bilirubin, Total, S 0.3 <=1.2 mg/dL 11/27/2020 8:24 AM CDT DTL Specimen Anatomical Collection Method Collection Time Receive d Time (Source) Location / / Volume Laterality Blood (Blood, 11/27/2020 7:10 AM 11/28/19 7:27 Venous) CDT AM CDT Willis Mcdermott M.D. LAB BLOOD ADD-ON Performing Organization Address City/State/[facility] Code Phon e Number [facility] - [address] [place], [place] [address] [place] [address] [facility] [address] documented in this encounter Visit Diagnoses Diagnosis Transplant Liver (HCC) - Primary Medication Therapy Logger Not Anticoa gulant Cirrhosis Cryptogenic (HCC) Screening Examination Prostate Cancer Screening Examination Skin Cancer Osteoporosis Without Pathological Fractu re Transplant Liver (HCC) Medication Therapy Logger Not Anticoa gulant Cirrhosis Cryptogenic (HCC) Screening Examination Prostate Cancer Screening Examination Skin Cancer Transplant Liver (HCC) Medication Therapy Logger Not Anticoa gulant Cirrhosis Cryptogenic (HCC) Screening Examination Prostate Cancer Screening Examination Skin Cancer documented in this encounter Additional Health Concerns Assessment Noted Time PHQ-9 Depression Total Score: 3 11/22/2019 7:34 AM CDT documented as of this encounter Care Teams Tax Agent Relationship Specialty Start Date End Date Elsewhere, Pcp PCP - General Family Medicine 07/29/17 [facility] - Laboratory Medicine 04/12/20 [place] [id number] documented as of this encounter
--- OUTSIDE RECORDS SUMMARY | 2022-04-13 12:22 | XMS_ITS | Encounter Summary ---
:1955 Author Organization [facility] Address [address] [place] [address] Care Team Providers Name Role Phone Elsewhere, Pcp Primary Care Provider Unavailable Reason for Visit Reason Comments Chronic Kidney Disease Outpatient (Routine) - Closed Specialty Diagnoses / Procedures Referred By Contact Refer red To Contact Nephrology and [facility] Hypertension Sada Hobson [address] [place] [address] Referral ID Status Reason Start Date Expiration Date Visits Requ ested Visits Authorized [id number] Closed 05/22/2020 05/22/2021 1 1 Encounter Details Date Type Department Care Team Description 08/31/2020 Office Visit Division of Nephrology Mara Bailey Kidney Disease and Hypertension in Sada Hobson Stage 4 Glomerular [place], [place] [address] [facility] Filtration Rate 15-29 [address] [place], [place] (HCC) (Primary Dx) [place] [phone] Social History Tobacco Use Types Packs/Day Years [...] 12/15/2021 organizations such as anabaptism groups, unions, [employer]mi[employer] or athletic groups, or school groups? How [...] Date Recorded Male 05/16/2020 4:27 PM VIDEO PRODUCTION COORDINATOR documented as of this encounter Last Filed Vital Signs Vital Sign Reading Time Taken Comments Blood Pressure 143/79 08/31/2020 3:33 PM VIDEO PRODUCTION COORDINATOR Pulse 64 08/31/2020 3:33 PM VIDEO PRODUCTION COORDINATOR Temperature - - Respiratory Rate - - Oxygen Saturation - - Inhaled Oxygen Concentration - - Weight 81.3 kg (179 lb 3.7 oz) 08/31/2020 3:33 PM VIDEO PRODUCTION COORDINATOR Height - - Body Mass Index 26.25 08/28/2020 2:45 PM VIDEO PRODUCTION COORDINATOR documented in this encounter Progress Notes Joce Bailey M.D. - 08/31/2020 4:00 PM CST SUBJECTIVE REASON FOR VISIT CHRONIC KIDNEY DISEASE HISTORY OF PRESENT ILLNESS Mr. Singh is a 64 y.o. male came to clinic for follow-up of chronic kidney disease. 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 He also has significant arteriosclerosis and arteriolar hyalinosis, [id number]. Interstitial fibrosis with tubular atrophy affects approximately 30-40% of the sample cortex. His creatinine continued to increase to 3.2-3.4 in 04/2020, and 3.6-3.7 in 2020. He is currentl y on nifedipine 90 mg daily, and torsemide 30 mg daily. His home blood pressure were 140s/80s. He noted worsening leg swelling with standing at the end of the day. He is on doxazosin 4 mg daily for BPH> He urinates 1-2 times at night. He denies lightheadedness, chest pain, shortness of breath, palpitation, headache, nausea, vomiting, abdominal pain. He drinks 6-8 glasses of water daily. He denies NSAID use. He had transplant evaluation in 03/2018. He was listed inactive in the waiting list given eGFR above20 at the time of evaluation. He has already attended renal replacement therapy treatment option andis interested in home hemodialysis. The following portions of the patient's history were reviewed and updated as appropriate: allergies,current medications, family history, medical history, social history, surgical history and problem list. Review of Systems Respiratory: Positive for coughing up mucus (phlegm) and dyspnea. Cardiovascular: Positive for swelling in the legs or feet. Left ankle swelling but better with compression stocking Genitourinary: Positive for frequent urination. Musculoskeletal: Positive for joint swelling. The following systems were negative: Constitutional, Skin, Eyes, ENT, GI, Hematologic, Neuro, Psych Past Medical History: Diagnosis Date ??? Blood [...] >Umbilical hernia repair. ??? VASECTOMY 1989 Social History: reports that he has never smoked. He has never used smokeless tobacco. He reports that he does not drink alcohol or use drugs. Family History: family history includes Coronary artery disease in his father and mother; Heart attack in his father and mother; Heart disease in his father and mother; Hypertension in his mother; Prostate cancer in his father; Skin cancer in his father. Current Outpatient Medications Medication Sig Dispense Refill [...] times a day. 720 mL 0 ??? tacrolimus (PROGRAF) 0.5 mg capsule Take 2 capsules (1 mg total) by mouth 2 (two) times a day. 360 capsule 3 ??? torsemide (DEMADEX) 10 mg tablet Take 3 tablets (30 mg total) by mouth daily. 270 tablet 3 ??? traZODone (DESYREL) 100 mg tablet Take 1 tablet by mouth at bedtime as needed for sleep. Maintenance No current facility-administered medications for this visit. OBJECTIVE VITAL SIGNS BP 143/79 Pulse 64 Wt 81.3 kg BMI 26.25 kg/m?? Cardiovascular Rate and Rhythm: Normal rate and regular rhythm. Heart sounds: Normal heart sounds. No murmur. No friction rub. No gallop. Comments: Mild ankle swelling Pulmonary Effort: Pulmonary effort is normal. No respiratory distress. Breath sounds: Normal breath sounds. No wheezing or rales. Chest Chest wall: No tenderness. Skin General: Skin is warm. Capillary Refill: Capillary refill takes less than 2 seconds. Neurological Mental Status: He is alert. DIAGNOSTIC FINDINGS I have reviewed laboratory, imaging, and other diagnostic studies. Relevant findings are as follows: Lab Results Component Value Date CREATININE 3.58 (H) 08/30/2020 BUN 55 (H) 08/30/2020 NA 136 08/30/2020 CL 101 08/30/2020 CO2 25 05/08/2018 ASSESSMENT / PLAN 1. 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 2. Renal artery stenosis s/p left renal artery stent in 03/2017. 3. Hypertension 4. 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 On immunosuppression - MMF, tacrolimus, and prednisone 6. Microscopic hematuria His creatinine this visit was 3.6, which increased from prior visit in 04/2020. His GFr was 17 basedon creatinine and 11 based on cystatin C. He does not have uremic or electrolyte disturbance that would warrant dialysis at this time. He has fluid retention on exam but this could be managed with diuretics. The risk of end-stage kidney disease requiring dialysis is about 46% in 2 years, and 85% in 5 years. He is interested in home hemodialysis. I discussed with him about referral to access clinic for AV fistula creation. He would like to defer for now but agree if his creatinine continues to increase next visit. He was evaluated for kidney transplant in 2019, and was listed inactive given GFR over 20 at that time. I would refer him to kidney transplant again for waiting list evaluation. His blood pressure is elevated. He has fluid retention on exam. He is on torsemide 30 mg daily. His blood pressure control would be benefit from higher torsemide dose but I would cautiously increase torsemide as he is taking tacrolimus and volume depletion could potentiate tacrolimus's nephrotoxicity and worsen kidney function. I advised him to monitor weight daily and might increase torsemide if he has weight gain. Continue nifedipine 90 mg daily. He has severely increased albuminuria. His urine albumin creatinine ratio was 1087 mg/g, decreased from previous visit, likely due to better blood pressure control. Ideally, I would like him to be on ACEI/ARB for renal and cardiovascular protection, as well as better blood pressure control but the benefit might be limited given very advanced chronic kidney disease and it might expedite the need for dialysis. US in 11/17/2019 showed renal artery stenosis at right proximal renal artery with lower velocities from previous US, and widely patent left renal artery stent. Given worsening kidney function, I will repeat kidney duplex US next visit but I doubt if there is benefit of revascularization given proteinuria and advanced kidney disease. CKD management - anemia; Hb 9.8. iron study is well repleted. No Need for JORGE L or iron therapy for now - metabolic acidosis; HCO3 > 22. 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 - lipid; on atorvastatin He is noted to have microscopic hematuria since 2018. Structural work-up, including cystoscopy and MRI (given advanced chronic kidney disease) might be necessary but he would like to defer for now. UA this visit showed occasional RBC. He will see me again in 3 months Contact number: [phone] Joce Bailey M.D. O PRODUCTION COORDINATOR Associated attestation - Nicole Peraza M.D. - 06/28/2021 9:41 AM VIDEO PRODUCTION COORDINATOR I have reviewed pertinent clinical data and discussed the case with Dr. Bailey. I reviewed hisnote note. I agree with the findings and outlined plan. documented in this encounter Plan of Treatment Upcoming Encounters Date Type Specialty Care Team Description 04/24/2022 Appointment Laboratory Medicine Angélica Granger P.A.-C. [address] [place] [phone] 04/25/2022 Office Visit Otorhinolaryngology Dex Matta APRN, C.N.P., M.S.N. [address] [place] [phone] 05/08/2022 Appointment Laboratory Medicine Angélica Granger P.A.-C. [address] [place] [phone] 05/08/2022 Clinical Admitting/Central Communication Scheduling 05/10/2022 Appointment Radiology Jeremie Rose M.D. [address] [place] [phone] 05/10/2022 Comprehensive Visit Orthopedic Surgery Warner Graves M.D. [address] [place] [phone] 05/22/2022 Appointment Laboratory Medicine Angélica Granger P.A.-C. [address] [place] [phone] 06/05/2022 Appointment Laboratory Medicine Angélica Granger P.A.-C. [address] [place] [phone] 06/19/2022 Appointment Laboratory Medicine Angélica Granger P.A.-C. [address] [place] [phone] 07/03/2022 Appointment Laboratory Medicine Angélica Granger P.A.-C. [address] [place] [phone] 07/17/2022 Appointment Laboratory Medicine Angélica Granger P.A.-C. [address] [place] [phone] 07/31/2022 Appointment Laboratory Medicine Angélica Granger P.A.-C. [address] [place] [phone] 08/14/2022 Appointment Laboratory Medicine Angélica Granger P.A.-C. [address] [place] [phone] 08/28/2022 Appointment Laboratory Medicine Angélica Granger P.A.-C. [address] [place] [phone] documented as of this encounter Visit Diagnoses Diagnosis Chronic Kidney Disease Stage 4 Glomerula r Filtration Rate 15-29 (HCC) - Primary documented in this encounter Additional Health Concerns Infection Onset Date Last Indicated Resolved Time COVID19 Pending 10/19/2020 10/19/2020 10/19/2020 9:54 AM CDT COVID19 Pending 10/19/2020 10/19/2020 10/20/2020 11:57 AM CDT COVID19 Pending 10/30/2020 10/30/2020 10/30/2020 3:10 PM CDT COVID19 10/30/2020 10/30/2020 11/19/2020 4:45 AM CDT COVID19 Pending 01/04/2021 01/04/2021 01/04/2021 9:44 PM CDT COVID19 Pending 05/23/2021 05/23/2021 05/23/2021 11:53 AM VIDEO PRODUCTION COORDINATOR COVID19 Pending 05/31/2021 05/31/2021 05/31/2021 3:24 PM VIDEO PRODUCTION COORDINATOR Assessment Noted Time PHQ-9 Depression Total Score: 3 11/22/2019 7:34 AM CDT documented as of this encounter 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
--- OUTSIDE RECORDS SUMMARY | 2022-04-13 12:22 | XMS_ITS | Encounter Summary ---
:1955 Author Organization [facility] Address [address] [place] [address] Care Team Providers Name Role Phone Elsewhere, Pcp Primary Care Provider Unavailable Encounter Details Date Type Department Care Team Description 08/30/2020 Hospital Encounter Department of [facility], [facility] Medicine Sada Hobson Chronic Kidney in [address] Disease Stage 4 (HCC) [place], [place] 300 [facility] [address] [place], [place] [phone] [address] (Work) [phone] Social History Tobacco Use Types Packs/Day Years [...] Date Recorded Male 05/16/2020 4:27 PM CLINICAL INFORMATICS SPEC documented as of this encounter Medications at [...] a day as needed for rhinitis. Maintenance levothyroxine TAKE 1 TABLET BY 90 tablet [...] daily. Medication Therapy [facility] Not Anticoagulant tacrolimus (PROGRAF) Take 2 capsules (1 360 capsule 3 202007/16/2021 0.5 mg mg total) by mouth 2 capsuleIndications: (two) times a day. Transplant Liver (HCC), Medication Therapy [employer] Not Anticoagulant torsemide (DEMADEX) 10 Take 3 [...] 50 mcg mouth daily. (2,000 Unit) capsule lamoTRIgine (LaMICtal) TAKE 1 TABLET BY 200 tablet 3 020 10/03/2020 200 mg tablet MOUTH TWICE DAILY mycophenolate TAKE 1 TABLET BY 180 tablet 3 11/22/201911/06 (CELLCEPT) 500 mg MOUTH TWICE DAILY tabletIndications: Transplant Liver (HCC) sodium chloride USE 4 ML VIA 0 08/30/2020 021 (NEBUSAL) 3 % nebulizer NEBULIZER TWICE solution DAILY traZODone (DESYREL) 100 Take 1 tablet by 0 201610/12/2020 mg tablet mouth at bedtime as needed for sleep. Maintenance documented as of this encounter Plan of Treatment Upcoming Encounters Date Type Specialty Care Team Description 04/24/2022 Appointment Laboratory Medicine Angélica Granger, SaeedADemetrius-CDemetrius [address] [place] [phone] 04/25/2022 Office Visit Otorhinolaryngology Dex Matta APRN, C.N.P., M.S.N. [address] [place] [phone] 05/08/2022 Appointment Laboratory Medicine Angélica Granger P.A.-CDemetrius [address] [place] [phone] 05/08/2022 Clinical Admitting/Central Communication Scheduling 05/10/2022 Appointment Radiology Jeremie Rose M.D. [address] [place] [address] 05/10/2022 Comprehensive Visit Orthopedic Surgery Warner Graves M.D. [address] [place] [phone] 05/22/2022 Appointment Laboratory Medicine Angélica Granger P.A.-C. [address] [place] [phone] 06/05/2022 Appointment Laboratory Medicine Angélica Granger P.A.-C. [address] [place] [phone] 06/19/2022 Appointment Laboratory Medicine Angélica Granger P.A.-C. [address] [place] [phone] 07/03/2022 Appointment Laboratory Medicine Angélica Granger P.A.-C. [address] [place] [phone] 07/17/2022 Appointment Laboratory Medicine Angélica Granger P.A.-C. [address] [place] [phone] 07/31/2022 Appointment Laboratory Medicine Angélica Granger P.A.-C. [address] [place] [phone] 08/14/2022 Appointment Laboratory Angélica Royal P.A.-C. [address] [place] [phone] 08/28/2022 Appointment Laboratory Angélica Royal P.A.-C. [address] [place] [phone] documented as of this encounter Procedures Procedure Name Priority Date/Time Associated Diagnosis Comme nts LIPID PANEL, S Routine 08/30/2020 8:58 AM Hypertension And Res ults for this CLINICAL INFORMATICS SPEC Chronic Kidney procedure are in Disease Stage 4 (HCC) the re sults section. RENAL FUNCTION Routine 08/30/2020 8:58 AM Hypertension And Res ults for this PANEL, S CLINICAL INFORMATICS SPEC Chronic Kidney procedure are in Disease Stage 4 (HCC) the re sults section. CYSTATIN C WITH EGFR Routine 08/30/2020 8:58 AM Hypertension A nd Results for this CLINICAL INFORMATICS SPEC Chronic Kidney procedure are in Disease Stage 4 (HCC) the re sults section. IRON AND TOT Routine 08/30/2020 8:58 AM Hypertension And Resul ts for this IRON-BINDING CLINICAL INFORMATICS SPEC Chronic Kidney procedure are in CAPACITY, S/P Disease Stage 4 (HCC) the r esults section. 25-HYDROXYVITAMIN D2 Routine 08/30/2020 8:58 AM Hypertension A nd Results for this AND D3, S CLINICAL INFORMATICS SPEC Chronic Kidney procedure are in Disease Stage 4 (HCC) the re sults section. CBC WITH Routine 08/30/2020 8:58 AM Hypertension And Resul ts for this DIFFERENTIAL, B CLINICAL INFORMATICS SPEC Chronic Kidney procedure are in Disease Stage 4 (HCC) the re sults section. PARATHYROID HORMONE Routine 08/30/2020 8:58 AM Hypertension An d Results for this (PTH), S CLINICAL INFORMATICS SPEC Chronic Kidney procedure are in Disease Stage 4 (HCC) the re sults section. MAGNESIUM, S Routine 08/30/2020 8:58 AM Hypertension And Resul ts for this CLINICAL INFORMATICS SPEC Chronic Kidney procedure are in Disease Stage 4 (HCC) the re sults section. FERRITIN, S Routine 08/30/2020 8:58 AM Hypertension And Resul ts for this CLINICAL INFORMATICS SPEC Chronic Kidney procedure are in Disease Stage 4 (HCC) the re sults section. documented in this encounter Results 25-Hydroxyvitamin D2 and D3 (08/30/2020 8:58 AM CLINICAL INFORMATICS SPEC) P athologist Signature 25-Hydroxy D2 <4.0 ng/mL 09/01/2020 SDSC 11:48 PM CLINICAL INFORMATICS SPEC 25-Hydroxy D3 52 ng/mL 09/01/2020 SDSC 11:48 PM CLINICAL INFORMATICS SPEC 25-Hydroxy D 52 ng/mL 09/01/2020 SDSC Total 11:48 PM CLINICAL INFORMATICS SPEC Comment: Interpretation: 51-80 ng/mL (increased r isk of hypercalciuria) ----REFERENCE VALUE---- 25-HYDROXY D TOTAL (D2+D3) Optimum level s in the healthy population are 20-50, patients with bone disease may benefit from higher levels within this r itzel. ----ADDITIONAL INFORMATION---- This test was developed and its performa nce characteristics determined by [facility] in a manner consistent with CLIA requirements. This test has not been cleared or approved by the U.S. Mer d and Drug Administration. Specimen Anatomical Collection Method Collection Time Receive d Time (Source) Location / / Volume Laterality Blood (Blood, 08/30/2020 8:58 AM 09/01/19 7:43 Venous) CLINICAL INFORMATICS SPEC AM CLINICAL INFORMATICS SPEC Joce Bailey M.D. LAB BLOOD ADD-ON Performing Organization Address City/[facility] Code Phon e Number [facility] [address] [place]O [place], [place] [address] [place], [place] [address] [address] Laboratory Medicine and Pathology [address] [place] [address] Dr. MURILLO (ABNORMAL) Parathyroid Hormone (PTH) (08/30/2020 8:58 AM CLINICAL INFORMATICS SPEC) athologist [facility] [place] Parathyroid 83 (H) 15 - 65 08/30/2020 AUST Hormone (PTH), S pg/mL 6:22 PM CLINICAL INFORMATICS SPEC Comment: Biotin has been identified by the audrey burton as a potential interfering substance. ??Higher concentr ations of biotin may be found in multivitamins, hair/nail supple ments, and workout supplements. ??If the result does not ma [facility] clinical observations, repeat testing after patient refrains fr om the use of supplements for at least 12 hours. Specimen Anatomical Collection Method Collection Time Receive d Time (Source) Location / / Volume Laterality Blood (Blood, 08/30/2020 8:58 AM 08/31/19 3:38 Venous) CLINICAL INFORMATICS SPEC PM CLINICAL INFORMATICS SPEC Joce Bailey M.D. LAB BLOOD ADD-ON Performing Organization Address City/[facility]/ZIP Code Phon e Number [facility]- [address] [place] [address] [facility] [place], [place] [address] [place] [address] Ferritin (08/30/2020 8:58 AM CLINICAL INFORMATICS SPEC) P athologist Signature Ferritin, S 208 31 - 409 08/30/2020 [facility] mcg/L 10:54 AM CLINICAL INFORMATICS SPEC Comment: Biotin has been identified by the audrey burton as a potential interfering substance. ??Higher concentr ations of biotin may be found in multivitamins, hair/nail supple ments, and workout supplements. ??If the result does not ma tch clinical observations, repeat testing after patient refrains fr om the use of supplements for at least 12 hours. Specimen Anatomical Collection Method Collection Time Receive d Time (Source) Location / / Volume Laterality Blood (Blood, 08/30/2020 8:58 AM 08/31/19 21 Venous) CLINICAL INFORMATICS SPEC 10:28 AM CLINICAL INFORMATICS SPEC Joce Bailey M.D. LAB BLOOD ADD-ON Performing Organization Address City/State/ZIP Code Phon e Number [facility]- [address] [place] [address] [place] [address] System in [place] [address] (ABNORMAL) Iron and Total Iron-Binding Capacity (08/30/2020 8:58 AM CLINICAL INFORMATICS SPEC) athologist Signature Iron 57 50 - 150 08/30/2020 AUST mcg/dL 5:53 PM CLINICAL INFORMATICS SPEC Total Iron 231 (L) 250 - 400 08/30/2020 [facility] Binding mcg/dL 5:53 PM CLINICAL INFORMATICS SPEC Capacity Percent 25 14 - 50 % 08/30/2020 [facility] Saturation 5:53 PM CLINICAL INFORMATICS SPEC Specimen Anatomical Collection Method Collection Time Receive d Time (Source) Location / / Volume Laterality Blood (Blood, 08/30/2020 8:58 AM 08/31/19 3:38 Venous) CLINICAL INFORMATICS SPEC PM CLINICAL INFORMATICS SPEC Joce Bailey M.D. LAB BLOOD ADD-ON Performing Organization Address City/State/ZIP Code Phon e Number [facility]- [address] [place] [address] [facility] [place] [address] [facility] [address] (ABNORMAL) CBC with Differential, Blood (08/30/2020 8:58 AM CLINICAL INFORMATICS SPEC) Patholo gist Method Time Signature Hemoglobin 9.8 (L) 13.2 - 08/30/2020 FB60 16.6 g/dL 9:08 AM CLINICAL INFORMATICS SPEC Hematocrit 29.5 (L) 38.3 - 08/30/2020 FB60 48.6 % 9:08 AM CLINICAL INFORMATICS SPEC Erythrocytes 3.16 (L) 4.35 - 08/30/2020 FB60 5.65 9:08 AM CLINICAL INFORMATICS SPEC x10(12)/L MCV 93.4 78.2 - 08/30/2020 FB60 97.9 fL 9:08 AM CLINICAL INFORMATICS SPEC RBC Distrib Width 12.8 11.8 - 08/30/2020 FB60 14.5 % 9:08 AM CLINICAL INFORMATICS SPEC Platelet Count 223 135 - 317 08/30/2020 FB60 x10(9)/L 9:08 AM CLINICAL INFORMATICS SPEC Leukocytes 3.1 (L) 3.4 - 9.6 08/30/2020 FB60 x10(9)/L 9:08 AM CLINICAL INFORMATICS SPEC Neutrophils 1.82 1.56 - 08/30/2020 FB60 6.45 9:08 AM CLINICAL INFORMATICS SPEC x10(9)/L Lymphocytes 0.73 (L) 0.95 - 08/30/2020 FB60 3.07 9:08 AM CLINICAL INFORMATICS SPEC x10(9)/L Monocytes 0.43 0.26 - 08/30/2020 FB60 0.81 9:08 AM CLINICAL INFORMATICS SPEC x10(9)/L Eosinophils 0.08 0.03 - 08/30/2020 FB60 0.48 9:08 AM CLINICAL INFORMATICS SPEC x10(9)/L Basophils 0.01 0.01 - 08/30/2020 FB60 0.08 9:08 AM CLINICAL INFORMATICS SPEC x10(9)/L Specimen Anatomical Collection Method Collection Time Receive d Time (Source) Location / / Volume Laterality Blood (Blood, 08/30/2020 8:58 AM 08/31/19 21 9:00 Venous) CLINICAL INFORMATICS SPEC AM CLINICAL INFORMATICS SPEC Joce Bailey M.D. LAB BLOOD ADD-ON Performing Organization Address City/State/ZIP Code Phon e Number [place] [address] [place] [address] [facility] [address] [place] [address] System in [place] [address] (ABNORMAL) Magnesium (08/30/2020 8:58 AM CLINICAL INFORMATICS SPEC) P athologist Signature Magnesium, P 2.8 (H) 1.7 - 2.3 08/30/2020 [facility] mg/dL 10:53 AM CLINICAL INFORMATICS SPEC Specimen Anatomical Collection Method Collection Time Receive d Time (Source) Location / / Volume Laterality Blood (Blood, 08/30/2020 8:58 AM 08/31/19 21 Venous) CLINICAL INFORMATICS SPEC 10:28 AM CLINICAL INFORMATICS SPEC Joce Bailey M.D. LAB BLOOD ADD-ON Performing Organization Address City/State/ZIP [facility] Phon e Number [facility]- [address] [facility] [place] [address] [facility] [place] [address] System in [place] [address] Lipid Panel (08/30/2020 8:58 AM CLINICAL INFORMATICS SPEC) P athologist Signature Cholesterol, 152 mg/dL 08/30/2020 [facility] Total 10:53 AM CLINICAL INFORMATICS SPEC Comment: ----REFERENCE VALUE---- Desirable: < 200 Borderline high: 200 - 239 High: > or = 240 Triglycerides 149 mg/dL 08/30/2020 10:53 AM CLINICAL INFORMATICS SPEC [facility] Comment: ----REFERENCE VALUE---- Normal: <150 Borderline high: 150-199 High: 200-499 Very high: > or =500 Cholesterol, HDL 43 >=40 mg/dL 08/30/2020 10:53 AM CS T [facility] Calculated LDL 79 mg/dL 08/30/2020 10:53 AM CLINICAL INFORMATICS SPEC O YAO Comment: ----REFERENCE VALUE---- Desirable: <100 Above Desirable: 100-129 Borderline high: 130-159 High: 160-189 Very high: > or =190 Cholesterol, Non-HDL, Calculated 109 mg/dL 021 10:53 AM CLINICAL INFORMATICS SPEC [facility] Comment: ----REFERENCE VALUE---- Desirable: <130 Above Desirable: 130-159 Borderline high: 160-189 High: 190-219 Very high: > or =220 Specimen Anatomical Collection Method Collection Time Receive d Time (Source) Location / / Volume Laterality Blood (Blood, 08/30/2020 8:58 AM 08/31/19 21 Venous) CLINICAL INFORMATICS SPEC 10:28 AM CLINICAL INFORMATICS SPEC Joce Bailey M.D. LAB BLOOD ADD-ON Performing Organization Address City/State/ZIP Code Phon e Number [facility]- [address] [place] [address] [place] [address] System in [place] [address] (ABNORMAL) Cystatin C with Estimated GFR, S (08/30/2020 8:58 AM CLINICAL INFORMATICS SPEC) P athologist Signature eGFR by 11 >60 08/31/2020 DAVE Cystatin C mL/min/BSA 7:48 AM CLINICAL INFORMATICS SPEC Comment: ----ADDITIONAL INFORMATION---- Cystatin C-based eGFR may differ substan tially from creatinine-based eGFR in patients with a bnormal muscle mass or acutely changing renal function. ??Pl ease interpret together with relevant clinical features. Cystatin C, S 4.39 (H) 0.77 - 1.42 mg/L 08/31/2020 7:48 AM CLINICAL INFORMATICS SPEC DAVE Specimen Anatomical Collection Method Collection Time Receive d Time (Source) Location / / Volume Laterality Blood (Blood, 08/30/2020 8:58 AM 09/01/19 7:07 Venous) CLINICAL INFORMATICS SPEC AM CLINICAL INFORMATICS SPEC Joce Bailey M.D. LAB BLOOD ADD-ON Performing Organization Address City/State/ZIP Code Phon e Number [facility] - [address] [place], [place] [address] [place] [address] Laboratories-[facility] [address] (ABNORMAL) Renal Function Panel (08/30/2020 8:58 AM CLINICAL INFORMATICS SPEC) Analysis Performed At Patho logist Time Signature Potassium, P 4.2 3.6 - 5.2 08/30/2020 [facility] mmol/L 10:53 AM CLINICAL INFORMATICS SPEC Sodium, P 136 135 - 145 08/30/2020 [place] mmol/L 10:53 AM CLINICAL INFORMATICS SPEC Chloride, P 101 98 - 107 08/30/2020 [place] mmol/L 10:53 AM CLINICAL INFORMATICS SPEC Bicarbonate, P 26 22 - 29 08/30/2020 [facility] mmol/L 10:53 AM CLINICAL INFORMATICS SPEC Anion Gap, P 9 7 - 15 08/30/2020 [facility] 10:53 AM CLINICAL INFORMATICS SPEC BUN (Blood Urea 55 (H) 8 - 24 08/30/2020 [facility] Nitrogen), P mg/dL 10:53 AM CLINICAL INFORMATICS SPEC Creatinine 3.58 (H) 0.74 - 08/30/2020 [facility] 1.35 mg/dL 10:53 AM CLINICAL INFORMATICS SPEC eGFR-Black/Afri 19 (L) >=60 08/30/2020 [facility] can Armenian mL/min/BSA 10:53 AM CLINICAL INFORMATICS SPEC Comment: ----ADDITIONAL INFORMATION---- Estimated GFR calculated using the 2009 CKD_EPI creatinine equation. eGFR Non-Black/ 17 (L) >=60 mL/min/BSA 08/30/2020 10:53 AM CLINICAL INFORMATICS SPEC [facility] [place] Comment: ----ADDITIONAL INFORMATION---- Estimated GFR calculated using the 2009 CKD_EPI creatinine equation. Calcium, Total, P 8.9 8.8 - 10.2 mg/dL 08/30/2020 10:5 3 AM CLINICAL INFORMATICS SPEC [facility] Glucose, P 119 70 - 140 mg/dL 08/30/2020 10:53 AM CLINICAL INFORMATICS SPEC [facility] Albumin, P 3.9 3.5 - 5.0 g/dL 08/30/2020 10:53 AM CLINICAL INFORMATICS SPEC [facility] Phosphorus (Inorganic), P 4.2 2.5 - 4.5 mg/dL 08/31/19 4:59 PM CLINICAL INFORMATICS SPEC [facility] Specimen Anatomical Collection Method Collection Time Receive d Time (Source) Location / / Volume Laterality Blood (Blood, 08/30/2020 8:58 AM 08/31/19 Venous) CLINICAL INFORMATICS SPEC 10:28 AM CLINICAL INFORMATICS SPEC Narrative [facility]- [facility] - 08/30/2020 4:59 PM CLINICAL INFORMATICS SPEC Specimen Information: Specimen ID: [id number] Specimen Type: Blood Specimen Collection Start Date: 08/31/19 ??8:58 AM Specimen Received Date: 08/30/2020 10:28 AM Specimen ID: [id number] Specimen Type: Blood Specimen Collection Start Date: 08/31/19 ??8:58 AM Specimen Received Date: 08/30/2020 ??3:3 8 PM Joce Bailey M.D. LAB BLOOD ADD-ON Performing Organization Address City/State/ZIP Code Phon e Number [facility]- [address] [place] [address] [place] [address] System in [place] [address] [place] [address] [facility] [address] documented in this encounter Visit Diagnoses Diagnosis Hypertension And Chronic Kidney Disease Stage 4 (HCC) documented in this encounter Additional Health Concerns Assessment Noted Time PHQ-9 Depression Total Score: 3 11/22/2019 7:34 AM CDT documented as of this encounter Care Teams Relief Man Relationship Specialty Start Date End Date Elsewhere, Pcp PCP - General Family Medicine 07/29/17 [facility] - Laboratory Medicine 04/12/[address] [address] documented as of this encounter
--- OUTSIDE RECORDS SUMMARY | 2022-04-13 12:22 | XMS_ITS | Encounter Summary ---
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 [address] [place] [phone] 04/25/2022 Office Visit Otorhinolaryngology Dex Matta APRN, C.N.P., M.S.N. [address] [place] [phone] 05/08/2022 Appointment Laboratory Medicine Angélica Granger P.A.-CDemetrius [address] [place] [phone] 05/08/2022 Clinical Admitting/Central Communication Scheduling 05/10/2022 Appointment Radiology Jeremie Rose M.D. [address] [place] [phone] 05/10/2022 Comprehensive Visit Orthopedic Surgery Warner Graves M.D. [address] [place] [phone] 05/22/2022 Appointment Laboratory Medicine Angélica Granger P.A.-C. [address] [place] [phone] 06/05/2022 Appointment Laboratory Medicine Angélica Granger P.A.-C. [address] [place] [phone] 06/19/2022 Appointment Laboratory Medicine Angélica Granger P.A.-C. [address] [place] [phone] 07/03/2022 Appointment Laboratory Medicine Angélica Granger P.A.-C. [address] [place] [phone] 07/17/2022 Appointment Laboratory Medicine Angélica Granger P.A.-C. [address] [place] [phone] 07/31/2022 Appointment Laboratory Medicine Angélica Granger P.A.-C. [address] [place] [phone] 08/14/2022 Appointment Laboratory Medicine Angélica Granger P.A.-C. [address] [place] [phone] 08/28/2022 Appointment Laboratory Medicine Angélica Granger P.A.-C. [address] [place] [phone] documented as of this encounter Visit Diagnoses Not on filedocumented in this encounter Additional Health Concerns Assessment Noted Time PHQ-9 Depression Total Score: 3 11/22/2019 7:34 AM CDT documented as of this encounter Care Teams Operator Automated Process Relationship Specialty Start Date End Date Elsewhere, Pcp PCP - General Family Medicine 07/29/17 [facility] - Laboratory Medicine 04/12/[address] [address] documented as of this encounter
--- OUTSIDE RECORDS SUMMARY | 2022-04-13 12:22 | XMS_ITS | Encounter Summary ---
:1955 Author Organization [facility] Address [address] [place] [address] Care Team Providers Name Role Phone Elsewhere, Pcp Primary Care Provider Unavailable Reason for Visit Reason Comments Patient Education Encounter Details Date Type Department Care Team Description 08/31/2020 Education Division of Pulmonary Hai Aaron M.B.B.S. [address] [place] [phone] Cough Medicine in [place], [place], Miguel Cardenas, R.R.T., L.R.T. 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 [address] [place] [phone] 04/25/2022 Office Visit Otorhinolaryngology Dex Matta, RAMONA, C.N.P., M.S.N. [address] [place] [phone] 05/08/2022 Appointment Laboratory Medicine Angélica Granger, P.A.-C. [address] [place] [phone] 05/08/2022 Clinical Admitting/Central Communication Scheduling 05/10/2022 Appointment Radiology Jeremie Rose M.D. [address] [place] [phone] 05/10/2022 Comprehensive Visit Orthopedic Surgery Warner Graves M.D. [address] [place] [phone] 05/22/2022 Appointment Laboratory Medicine Angélica Granger P.A.-C. [address] [place] [phone] 06/05/2022 Appointment Laboratory Medicine Angélica Granger P.A.-C. [address] [place] [phone] 06/19/2022 Appointment Laboratory Medicine Angélica Granger P.A.-C. [address] [place] [phone] 07/03/2022 Appointment Laboratory Medicine Angélica Granger P.A.-C. [address] [place] [phone] 07/17/2022 Appointment Laboratory Medicine Angélica Granger P.A.-C. [address] [place] [phone] 07/31/2022 Appointment Laboratory Medicine Angélica Granger P.A.-C. [address] [place] [phone] 08/14/2022 Appointment Laboratory Angélica Royal P.A.-C. [address] [place] [phone] 08/28/2022 Appointment Laboratory Angélica Royal P.A.-C. [address] [place] [phone] documented as of this encounter Visit Diagnoses Diagnosis Cough Unspecified Type documented in this encounter Additional Health Concerns Assessment Noted Time PHQ-9 Depression Total Score: 3 11/22/2019 7:34 AM CDT documented as of this encounter Care Teams Spray Gun Repairer Helper Relationship Specialty Start Date End Date Elsewhere, Pcp PCP - General Family Medicine 07/29/17 [facility] - Laboratory Medicine 04/12/[address] [address] documented as of this encounter
--- OUTSIDE RECORDS SUMMARY | 2022-04-13 12:22 | XMS_ITS | Encounter Summary ---
:1955 Author Organization [facility] Address [address] [place] [address] Care Team Providers Name Role Phone Elsewhere, Pcp Primary Care Provider Unavailable Encounter Details Date Type Department Care Team Description 08/28/2020 Hospital Encounter Department of Connie Aaron C ough Laboratory Medicine and M.B.B.SDemetrius Pathology, [address] [phone] [place] [address] [place] [phone] Social History Tobacco Use Types [...] at Date Recorded Male 05/16/2020 4:27 PM DEICER TESTER documented as of this encounter Medications at [...] mouth Transplant Liver (HCC), daily. 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 Maintenance documented as of this encounter Plan of Treatment Upcoming Encounters Date Type Specialty Care Team Description 04/24/2022 Appointment Laboratory Medicine Angélica Granger, P.A.-C. [address] [place] [phone] 04/25/2022 Office Visit Otorhinolaryngology Dex Matta APRN, C.N.P., M.S.N. [address] [place] [phone] 05/08/2022 Appointment Laboratory Medicine Angélica Granger, P.A.-C. [address] [place] [phone] 05/08/2022 Clinical Admitting/Central Communication Scheduling 05/10/2022 Appointment Radiology Jeremie Rose M.D. [address] [place] [phone] 05/10/2022 Comprehensive Visit Orthopedic Surgery Warner Graves M.D. [address] [place] [phone] 05/22/2022 Appointment Laboratory Medicine Angélica Granger P.A.-C. [address] [place] [phone] 06/05/2022 Appointment Laboratory Medicine Angélica Granger P.A.-C. [address] [place] [phone] 06/19/2022 Appointment Laboratory Medicine Angélica Granger P.A.-C. [address] [place] [phone] 07/03/2022 Appointment Laboratory Medicine Angélica Granger P.A.-C. [address] [place] [phone] 07/17/2022 Appointment Laboratory Medicine Angélica Granger P.A.-C. [address] [place] [phone] 07/31/2022 Appointment Laboratory Medicine Angélica Granger P.A.-C. [address] [place] [phone] 08/14/2022 Appointment Laboratory Medicine Angélica Granger P.A.-C. [address] [place] [phone] 08/28/2022 Appointment Laboratory Medicine Angélica Granger P.A.-C. [address] [place] [phone] documented as of this encounter Procedures Procedure Name Priority Date/Time Associated Comments Diagnosis IMMUNOGLOBULINS (IGG, Routine 08/28/2020 4:11 Cough Res ults for this IGA, AND IGM), S PM DEICER TESTER procedure a re in the results section. documented in this encounter Results (ABNORMAL) Immunoglobulins (IgG, IgA, and IgM) (08/28/2020 4:11 PM DEICER TESTER) [place] gist Method Time Signature Immunoglobulin A 32 (L) 61 - 356 08/29/2020 SDSC (IgA), S mg/dL 7:42 AM DEICER TESTER Immunoglobulin M 56 37 - 286 08/29/2020 SDS (IgM), S mg/dL 7:42 AM DEICER TESTER Immunoglobulin G 807 767 - 08/29/2020 SDS (IgG), S 1590 7:42 AM DEICER TESTER mg/dL Specimen Anatomical Collection Method Collection Time Receive d Time (Source) Location / / Volume Laterality Blood (Blood, 08/28/2020 4:11 PM 08/30/19 21 6:06 Venous) DEICER TESTER AM DEICER TESTER Connie Barron LAB BLOOD ADD-ON Performing Organization Address City/State/ZIP Code Phon e Number [facility] [address] [place] [id number] [facility] [place] [address] Laboratory Medicine and Pathology [address] [place] documented in this encounter Visit Diagnoses Diagnosis Cough Unspecified Type documented in this encounter Additional Health Concerns Assessment Noted Time PHQ-9 Depression Total Score: 3 11/22/2019 7:34 AM CDT documented as of this encounter Care Teams Business Objects Consultant Relationship Specialty Start Date End Date Elsewhere, Pcp PCP - General Family Medicine 07/29/17 [facility] - Laboratory Medicine 04/12/[address] [address] documented as of this encounter
--- OUTSIDE RECORDS SUMMARY | 2022-04-13 12:22 | XMS_ITS | Encounter Summary ---
:1955 Author Organization [facility] Address [address] [place] [address] Care Team Providers Name Role Phone Elsewhere, Pcp Primary Care Provider Unavailable Encounter Details Date Type Department Care Team Description 09/01/2020 Orders Only Curt aguirre [facility] Trung Plasencia for Transplantation and Mayuri Wyatt. 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 [address] [place] [phone] 04/25/2022 Office Visit Otorhinolaryngology Dex Matta, RAMONA, C.N.P., M.S.N. [address] [place] [phone] 05/08/2022 Appointment Laboratory Medicine Angélica Granger P.A.-C. [address] [place] [phone] 05/08/2022 Clinical Admitting/Central Communication Scheduling 05/10/2022 Appointment Radiology Jeremie Rose M.D. [address] [place] [phone] 05/10/2022 Comprehensive Visit Orthopedic Surgery Warner Graves M.D. [address] [place] [phone] 05/22/2022 Appointment Laboratory Medicine Angélica Granger P.A.-C. [address] [place] [phone] 06/05/2022 Appointment Laboratory Medicine Angélica Granger P.A.-C. [address] [place] [phone] 06/19/2022 Appointment Laboratory Medicine Angélica Granger P.A.-C. [address] [place] [phone] 07/03/2022 Appointment Laboratory Medicine Angélica Granger P.A.-C. [address] [place] [phone] 07/17/2022 Appointment Laboratory Medicine Angélica Granger P.A.-C. [address] [place] [phone] 07/31/2022 Appointment Laboratory Medicine Angélica Granger P.A.-C. [address] [place] [phone] 08/14/2022 Appointment Laboratory Angélica Royal P.A.-C. [address] [place] [phone] 08/28/2022 Appointment Laboratory Medicine Angélica Granger P.A.-C. [address] [place] [phone] documented as of this encounter Visit Diagnoses Not on filedocumented in this encounter Additional Health Concerns Assessment Noted Time PHQ-9 Depression Total Score: 3 11/22/2019 7:34 AM CDT documented as of this encounter Care Teams E Commerce Retailer Relationship Specialty Start Date End Date Elsewhere, Pcp PCP - General Family Medicine 07/29/17 [facility] - Laboratory Medicine 04/12/20 [place] [address] documented as of this encounter
--- OUTSIDE RECORDS SUMMARY | 2022-04-13 12:22 | XMS_ITS | Encounter Summary ---
:1955 Author Organization [facility] Address [address] [place] [address] Care Team Providers Name Role Phone Elsewhere, Pcp Primary Care Provider Unavailable Reason for Referral MRI/CAT/PET Scan (Routine) - Closed Specialty Diagnoses / Procedures Referred By Contact Refer red To Contact Radiology Diagnoses Pretransplant Recipient Evaluation Exam Chronic Kidney Disease Stage 4 Glomerular Filtration Rate 15-29 (HCC) Eloy Chavez M.D. [place] [facility] Procedures CT Abdomen Pelvis without IV Contrast [address] [place], [place] [phone] Referral ID Status Reason Start Date Expiration Date Visits Requ ested Visits Authorized [id number] Closed 09/15/2020 09/15/2021 1 1 utpatient (Routine) - Closed Specialty Diagnoses / Procedures Referred By Contact Refer red To Contact Diagnoses Pretransplant Recipient Evaluation Exam Chronic Kidney Disease Stage 4 Glomerular Filtration Rate 15-29 (HCC) Eloy Chavez M.D. [place] [facility] Procedures Echo Stress [address] [place] [address] Referral ID Status Reason Start Date Expiration Date Visits Requ ested Visits Authorized [id number] Closed 09/15/2020 09/15/2021 1 1 utpatient (Routine) - Closed Specialty Diagnoses / Procedures Referred By Contact Refer red To Contact Diagnoses Pretransplant Recipient Evaluation Exam Chronic Kidney Disease Stage 4 Glomerular Filtration Rate 15-29 (HCC) Eloy Chavez M.D. [facility] Procedures ECG 12 Lead [address] [place] [phone] Referral ID Status Reason Start Date Expiration Date Visits Requ ested Visits Authorized [id number] Closed 09/15/2020 09/15/2021 1 1 ransplant (Routine) - Closed Specialty Diagnoses / Procedures Referred By Contact Refer red To Contact Transplant Surgery / Diagnoses Pretransplant Recipient Evaluation Exam Chronic Kidney Disease Stage 4 Glomerular Filtration Rate 15-29 (HCC) Eloy Chavez M.D. [facility] Transplant [address] [place] [address] Referral ID Status Reason Start Date Expiration Date Visits Requ ested Visits Authorized [id number] Closed 09/15/2020 09/15/2021 1 1 ransplant (Routine) - Closed Specialty Diagnoses / Procedures Referred By Contact Refer red To Contact Transplant Surgery / Diagnoses Pretransplant Recipient Evaluation Exam Chronic Kidney Disease Stage 4 Glomerular Filtration Rate 15-29 (HCC) Eloy Chavez M.D. [place] [facility] Transplant [address] [place] [address] Referral ID Status Reason Start Date Expiration Date Visits Requ ested Visits Authorized [id number] Closed 09/15/2020 09/15/2021 1 1 ransplant (Routine) - Closed Specialty Diagnoses / Procedures Referred By Contact Refer red To Contact Transplant Surgery / Diagnoses Pretransplant Recipient Evaluation Exam Chronic Kidney Disease Stage 4 Glomerular Filtration Rate 15-29 (HCC) Eloy Chavez M.D. [facility] [facility] Trans[facility] [address] [place] [phone] Referral ID Status Reason Start Date Expiration Date Visits Requ ested Visits Authorized [id number] Closed 09/15/2020 09/15/2021 1 1 hysical Therapy (Routine) - Closed Specialty Diagnoses / Procedures Referred By Contact Refer red To Contact Diagnoses Pretransplant Recipient Evaluation Exam Chronic Kidney Disease Stage 4 Glomerular Filtration Rate 15-29 (HCC) Eloy Chavez M.D. [facility] Procedures PT Evaluate and treat [address] [place] [phone] Referral ID Status Reason Start Date Expiration Date Visits Requ ested Visits Authorized [id number] Closed 09/15/2020 09/15/2021 99 99 Encounter Details Date Type Department Care Team Description 09/01/2020 Clinical Communication Curt Loera, Center for Patricia Azevedo R.N., Transplantation and C.C.T.C. Clinical Regeneration in [address] [place] [address] [place] [phone] [place] [phone] Social History Tobacco Use Types Packs/Day Years [...] or relatives? How often do you attend confucianism or More than 4 times per year 12/15/2021 taoism services? 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 - 09/15/2020 11:58 AM CDT Addended by: ELOY CHAVEZ on: 09/15/2020 11:58 AM Modules accepted: Orders Addendum Note - Sesar Nayak R.N. - 09/15/2020 11:47 AM CDT Addended by: SESAR NAYAK on: 09/15/2020 11:47 AM Modules accepted: Orders, SmartSet Telephone Encounter - Dotty Jenkins - 09/14/2020 10:30 AM CDT Patient is scheduled for his REKTE and liver annual starting Fredy 7. REKTE is scheduled with Dr. Chavez. Please place orders. Thank you, Gela Telephone Encounter - Patricia Pinto R.N., Dilan - 09/01/2020 1:57 PM CST Virtual Visits Included: NO Type of Appointment: Waitlist On Dialysis: No SPK: No Chemdep: No Mood Consult: No Cardiology Consult: No Extra Consults: DSE, PMR; Check with liver regarding post transplant appts. Requested Provider: Onur Patient Not Available to Come: Angiogram: No Colonoscopy: No Previous Tx W/U: Yes, describe: TI on wait list at [facility] R MARINE documented in this encounter Plan of Treatment Upcoming Encounters Date Type Specialty Care Team Description 04/24/2022 Appointment Laboratory Medicine Angélica Granger P.A.-CDemetrius [address] [place] [phone] 04/25/2022 Office Visit Otorhinolaryngology Dex Matta APRN, C.N.P., M.S.N. [address] [place] [phone] 05/08/2022 Appointment Laboratory Medicine Angélica Granger P.A.-CDemetrius [address] [place] [phone] 05/08/2022 Clinical Admitting/Central Communication Scheduling 05/10/2022 Appointment Radiology Jeremie Rose M.D. [address] [place] [phone] 05/10/2022 Comprehensive Visit Orthopedic Surgery Warner Graves M.D. [address] [place] [phone] 05/22/2022 Appointment Laboratory Medicine Angélica Granger P.A.-C. [address] [place] [phone] 06/05/2022 Appointment Laboratory Medicine Angélica Granger P.A.-C. [address] [place] [phone] 06/19/2022 Appointment Laboratory Medicine Angélica Granger P.A.-C. [address] [place] [phone] 07/03/2022 Appointment Laboratory Medicine Angélica Granger P.A.-C. [address] [place] [phone] 07/17/2022 Appointment Laboratory Angélica Royal P.A.-C. [address] [place] [phone] 07/31/2022 Appointment Laboratory Angélica Royal P.A.-C. [address] [place] [phone] 08/14/2022 Appointment Laboratory Angélica Royal P.A.-C. [address] [place] [phone] 08/28/2022 Appointment Laboratory Medicine Angélica Granger P.A.-C. [address] [place] [phone] Scheduled Referrals Name Type Priority Associated Diagnoses Order S [facility] Transplant Kidney Outpatient Referral Routine Pretransplant Ex pected: office visit Recipient Evaluation 021 (clinic) Exam (Approximate), Chronic Kidney Disease Expir es: Stage 4 Glomerular 2 Filtration Rate 15-29 (HCC) Transplant Kidney Outpatient Referral Routine Pretransplant Ex pected: office visit Recipient Evaluation 021 (clinic) Exam (Approximate), Chronic Kidney Disease Expir es: Stage 4 Glomerular 2 Filtration Rate 15-29 (HCC) Transplant Kidney Outpatient Referral Routine Pretransplant Ex pected: office visit Recipient Evaluation 021 (clinic) Exam (Approximate), Chronic Kidney Disease Expir es: Stage 4 Glomerular 2 Filtration Rate 15-29 (HCC) documented as of this encounter Results ECHO STRESS 2D ONLY (11/28/2020 1:51 PM CDT) [facility] Method Time Signature Ejection Fraction 60 [...] Hg) For the complete report, see the L[employer]ergi Documents. Narrative 11/28/2020 2:53 PM CDT For the complete report, see the Order-L evel Documents. Final Impressions 1. Dobutamine stress [...] the Order-L evel Documents. Final Impressions 1. Dobutamine stress [...] complete report, see the Order-L evel Documents. Eloy Chavez M.D. CV ECHO PROCEDURES CT Abdomen Pelvis without IV Contrast (11/27/2020 [...] previous hepatic transplant. Splenomegaly. Mildly atrophi c [place] kidneys. Mild to moderate calcific atherosclerotic disease [...] previous hepatic transplant. Splenomegaly. Mildly atrophi c [place] kidneys. Mild to moderate calcific atherosclerotic disease [...] arteries. No significant calcification external iliac arteries. Eloy Chavez M.D. IMG CT PROCEDURES ECG 12 Lead (11/27/2020 9:59 AM CDT) P athologist Signature Ventricular Rate 59 BPM MUSE ECG/Min NE Interval 164 ms MUSE QRSD Interval 96 ms MUSE QT Interval 426 ms MUSE QTC Interval 421 ms MUSE P [place] 78 degrees MUSE R [place] 7 degrees MUSE T Wave [place] 65 degrees MUSE Specimen Anatomical Collection Method Collection Time Receive d Time (Source) Location / / Volume Laterality 11/27/2020 9:59 AM CDT 10:11 AM CDT Impressions MUSE - 11/27/2020 10:11 AM CDT Sinus bradycardia Otherwise normal ECG When compared with ECG of 12-NOV-2020 19 :37, No significant change was found Reviewed by SHERYL Gonzalez Narrative This result has an attachment that is no t available. Procedure Note Orlando Hurd Jr., M.D. - 11/27/2020For matting of this note might be different from the original. IMPRESSION: Sinus bradycardia Otherwise normal ECG When compared with ECG of 12-NOV-2020 19 :37, No significant change was found Reviewed by SHERYL Gonzalez Eloy Chavez M.D. ECG ORDERABLES Performing Organization Address City/State/ZIP Code Phon e Number MUSE MUSE NA Drug Abuse Survey with Confirmation, Panel 9, Urine (11/27/2020 7:51 AM CDT) [facility] gist Method Time Signature Alcohol Negative Cutoff: 11/27/2020 [facility] 10 mg/dL 12:20 PM CDT Amphetamines Negative Cutoff: 11/27/2020 [facility] 500 ng/mL 12:20 PM CDT Barbiturates Negative Cutoff: 11/27/2020 [facility] 200 ng/mL 12:20 PM CDT Benzodiazepines Negative Cutoff: 11/27/2020 SDSC 100 ng/mL 12:20 PM CDT Cocaine Negative Cutoff: 11/27/2020 [facility]SC 150 ng/mL 12:20 PM CDT Methadone Metabolite Negative Cutoff: 11/27/2020 [facility] 300 ng/mL 12:20 PM CDT Opiates Negative Cutoff: 11/27/2020 [facility]SC 300 ng/mL 12:20 PM CDT Phencyclidine Negative Cutoff: 11/27/2020 [facility] 25 ng/mL 12:20 PM CDT Tetrahydrocannabinol Negative Cutoff: 11/27/2020 SD[facility] 50 ng/mL 12:20 PM CDT Comment: ----ADDITIONAL INFORMATION---- This report is intended for use in clini adelfo monitoring or management of patients. ??It is not intended for use i n employment-related testing. This test has been modified from the man ufacturer's instructions. Its performance characteristics were determi kaye by [facility] in a manner consistent with CLIA requirements. This test has not been cleared or approved by the U.S. Food and Drug Administration . Specimen Anatomical Collection Method Collection Time Receive d Time (Source) Location / / Volume Laterality Urine (Urine, 11/27/2020 7:51 AM 11/28/19 21 Clean Catch) CDT 11:03 AM CDT Eloy Chavez M.D. LAB URINE ORDERABLES Performing Organization Address City/State/ZIP Code Phon e Number [facility] [address] [place], [place] [address] [place] [address] [place] [address] Laboratory Medicine and Pathology [address] [place] Bacterial Culture, Aerobic + Susc, Urine (11/27/2020 7:13 AM CDT) [facility] gist Method Time Signature Urine Culture No growth 11/28/2020 DTL after 1 day 8:05 AM CDT of incubation. Specimen Anatomical Collection Method Collection Time Receive d Time (Source) Location / / Volume Laterality Urine (Urine, 11/27/2020 7:13 AM 11/28/19 21 8:22 Midstream) CDT AM CDT Comment: Specimen Source Site: Urine Eloy Chavez M.D. LAB MICROBIOLOGY - GENERAL O RDERABLES Performing Organization Address [facility] Phon e Number [facility] - [address] [place], [place] [address] [place] [address] Laboratories-[facility] [address] [place] BK Virus PCR, Quant, Plasma (11/27/2020 7:11 AM CDT) [facility] Easy Bill Online Method Time Signature BK Virus PCR, None None 11/27/2020 DT Quant, P Detected Detected 4:49 PM CDT Comment: ----ADDITIONAL INFORMATION---- IU/mL = International Units per millilit er This test was developed and its performa nce characteristics determined by [facility] in a manner consistent with CLIA requirements. This test has not been cleared or approved by the U.S. Mer d and Drug Administration. Specimen Anatomical Collection Method Collection Time Receive d Time (Source) Location / / Volume Laterality Blood (Blood, 11/27/2020 7:11 AM 11/28/19 21 8:32 Venous) CDT AM CDT Eloy Chavez M.D. LAB MICROBIOLOGY - BLOOD ORD ERABLES Performing Organization Address City/[facility] Phon e Number [facility] - [address] [place], [place] [address] [place] [address] Laboratories-[facility] [address] [place] EBV Ab Profile (11/27/2020 7:11 AM CDT) [facility] Easy Bill Online Method Time Signature EBV VCA IgM Ab, S Negative Negative 11/27/2020 SDSC 10:52 AM CDT EBV VCA IgG Ab, S Positive Negative 11/27/2020 [facility] 10:52 AM CDT EBNA Ab, S Positive Negative 11/27/2020 [facility]SC 10:52 AM CDT Interpretation SEE COMMENT 11/27/2020 SDSC 10:52 AM CDT Comment: Results suggest past infection. ----ADDITIONAL INFORMATION---- In most populations, at least 90% of the adult population will have been infected with EBV sometim e in the past and therefore, will be positive for anti-VCA /IgG and anti- EBNA. Antibodies to EBNA develop 6-8 wee ks after primary infection and remain present for life. ? ?Presence of VCA/ IgM antibodies indicates recent primary infection with EBV. Specimen Anatomical Collection Method Collection Time Receive d Time (Source) Location / / Volume Laterality Blood (Blood, 11/27/2020 7:11 AM 11/28/19 9:55 Venous) CDT AM CDT Eloy Chavez M.D. LAB MICROBIOLOGY - BLOOD ORD ERABLES Performing Organization Address City/[facility]/ZIP Code Phon e Number [facility] [address] [place] [address] [facility] [place] [address] Laboratory Medicine and Pathology [address] [place] [address] Dr. MURILLO HIV-1/-2 Ag and Ab Screen, Plasma (11/27/2020 7:11 AM CDT) athologist Signature HIV-1/-2 Ag Negative Negative 11/27/2020 [facility] and Ab Screen, 1:19 PM CDT P Comment: Negative result does not rule out HIV in fection. If exposure to HIV infection occurred <14 d ays ago, contact the laboratory to request additi on of HIV-1 RNA detection / quantification test (HIV QN). Specimen Anatomical Collection Method Collection Time Receive d Time (Source) Location / / Volume Laterality Blood (Blood, 11/27/2020 7:11 AM 11/28/19 21 Venous) CDT 10:50 AM CDT Eloy Chavez M.D. LAB MICROBIOLOGY - BLOOD ORD TK Performing Organization Address City/State/ZIP Code Phon e Number [facility] [address] [place] [address] [facility] [place] [address] Laboratory Medicine and Pathology [address] [place] [address] Dr. MURILLO HCV Ab Scrn w/Reflex to HCV PCR, Serum (11/27/2020 7:11 AM CDT) athologist Signature HCV Ab Screen, Negative Negative 11/27/2020 [facility] S 12:06 PM CDT Comment: Ofnccm-uv-jeekht ratio is <1.00 . Specimen Anatomical Collection Method Collection Time Receive d Time (Source) Location / / Volume Laterality Blood (Blood, 11/27/2020 7:11 AM 11/28/19 21 9:52 Venous) CDT AM CDT Eloy Chavez M.D. LAB MICROBIOLOGY - BLOOD ORD ERAKAJAL Performing Organization Address City/State/ZIP Code Phon e Number [facility] [address] [place] [address] [facility] [place] [address] Laboratory Medicine and Pathology [address] MUR[place]O Hepatitis B Surface Antigen (11/27/2020 7:11 AM CDT) athologist Signature HBs Antigen, S Negative Negative 11/27/2020 [facility] 11:48 AM CDT Specimen Anatomical Collection Method Collection Time Receive d Time (Source) Location / / Volume Laterality Blood (Blood, 11/27/2020 7:11 AM 11/28/19 21 9:52 Venous) CDT AM CDT Eloy Chavez M.D. LAB MICROBIOLOGY - BLOOD ORD ERAKAJAL Performing Organization Address City/State/ZIP Code Phon e Number [facility] [address] [place] [address] [facility] [place] [address] Laboratory Medicine and Pathology [facility] [address] MURILLO HBc Total Ab, Serum (11/27/2020 7:11 AM CDT) athologist [facility] HBc Total Ab, Negative Negative 11/27/2020 [facility] S 11:58 AM CDT Specimen Anatomical Collection Method Collection Time Receive d Time (Source) Location / / Volume Laterality Blood (Blood, 11/27/2020 7:11 AM 11/28/19 21 9:52 Venous) CDT AM CDT Eloy Chavez M.D. LAB MICROBIOLOGY - BLOOD ORD ERAKAJAL Performing Organization Address City/State/ZIP Code Phon e Number [facility] [address] [place] [address] [facility] [place] [address] Laboratory Medicine and Pathology [facility] [address] MURILLO HBs Antibody, Serum (11/27/2020 7:11 AM CDT) athologist Signature HBs Antibody, Positive 11/27/2020 [facility] S 11:58 AM CDT Comment: Patient is considered to be immune to in fection with HBV. ----REFERENCE VALUE---- Unvaccinated: Negative Vaccinated: Positive HBs Antibody, Quantitative, S 47.2 mIU/mL 11/27/2020 11:58 AM CDT [facility] Comment: ----REFERENCE VALUE---- Unvaccinated: <5.0 Vaccinated: >=12.0 Specimen Anatomical Collection Method Collection Time Receive d Time (Source) Location / / Volume Laterality Blood (Blood, 11/27/2020 7:11 AM 11/28/19 21 9:52 Venous) CDT AM CDT Eloy Chavez M.D. LAB MICROBIOLOGY - BLOOD ORD ERABLES Performing Organization Address City/[facility]/ZIP Code Phon e Number [facility] [address] [place], [place] [address] [facility] [place] [address] Laboratory Medicine and Pathology [address] [place] (ABNORMAL) Troponin T, 5th Generation (11/27/2020 7:11 AM CDT) athologist Signature Troponin T, 5th 34 (H) <=15 ng/L 11/27/2020 [facility] gen 8:34 AM CDT Specimen Anatomical Collection Method Collection Time Receive d Time (Source) Location / / Volume Laterality Blood (Blood, 11/27/2020 7:11 AM 11/28/19 21 7:33 Venous) CDT AM CDT Eloy Chavez M.D. LAB BLOOD ADD-ON Performing Organization Address City/State/[facility] Phon e Number [facility] - [address] [place], [place] [address] [place] [address] Laboratories-[facility] [address] Parathyroid Hormone (PTH) (11/27/2020 7:11 AM CDT) athologist Signature Parathyroid 64 15 - 65 11/27/2020 DTL Hormone (PTH), S pg/mL 8:26 AM CDT Specimen Anatomical Collection Method Collection Time Receive d Time (Source) Location / / Volume Laterality Blood (Blood, 11/27/2020 7:11 AM 11/28/19 21 7:27 Venous) CDT AM CDT Eloy Chavez M.D. LAB BLOOD ADD-ON Performing Organization Address City/[facility] Phon e Number [facility] - [address] [place] [address] 05 [facility] [place] [address] Laboratories-[address] (ABNORMAL) Electrolyte (Chem 4) Panel (11/27/2020 7:11 AM CDT) P athologist Signature Potassium, P 3.9 3.6 - 5.2 11/27/2020 [facility] mmol/L 7:36 AM CDT Sodium, P 131 (L) 135 - 145 11/27/2020 [facility] mmol/L 7:36 AM CDT Chloride, P 94 (L) 98 - 107 11/27/2020 [facility] mmol/L 7:36 AM CDT Bicarbonate, P 24 22 - 29 11/27/2020 [facility] mmol/L 7:36 AM CDT Anion Gap, P 13 7 - 15 11/27/2020 [facility] 7:36 AM CDT Specimen Anatomical Collection Method Collection Time Receive d Time (Source) Location / / Volume Laterality Blood (Blood, 11/27/2020 7:11 AM 11/28/19 21 7:19 Venous) CDT AM CDT Eloy Chavez M.D. LAB BLOOD ADD-ON Performing Organization Address City/[facility] Phon e Number [facility] - [address] [place] [address] 05 [facility] [place] [address] Laboratories-[address] (ABNORMAL) Cytomegalovirus Ab, IgM and IgG (11/27/2020 7:10 AM CDT) Patholo gist Method Time Signature Cytomegalovirus Negative Negative 11/27/2020 [facility] Ab, IgM, S 10:48 AM CDT Cytomegalovirus Positive Negative 11/27/2020 [facility] Ab, IgG, S (A) 10:48 AM CDT Specimen Anatomical Collection Method Collection Time Receive d Time (Source) Location / / Volume Laterality Blood (Blood, 11/27/2020 7:10 AM 11/28/19 21 9:55 Venous) CDT AM CDT Eloy Chavez M.D. LAB MICROBIOLOGY - BLOOD ORD ERABLES Performing Organization Address City/State/ZIP Code Phon e Number [facility] [address] [place], [place] [address] [place], [place] [address] [address] Laboratory Medicine and Pathology [address] [place] [address] Dr. MURILLO QuantiFERON-Tb Gold Plus, Blood (11/27/2020 7:10 AM CDT) athologist Signature QuantiFERON-TB Negative Negative 11/28/2020 [facility] Gold Plus 1:37 PM CDT Result Comment: No interferon-gamma response to [...] Diagnosis of Tuberculosis in Adults and Children [Lewinsohn DM et. al. Clin. Infect. Dis. 2017;64(2):111-115]. The reference range for the 'TB1 Ag migdalia s Nil Result' and 'TB2 Ag minus Nil Result' is an Inte rferon-gamma level <0.35 IU/mL. TB1 Ag minus Nil Result 0.03 IU/mL 11/28/2020 1:37 PM CDT [facility] TB2 Ag minus Nil Result 0.03 IU/mL 11/28/2020 1:37 PM CDT [facility] Mitogen minus Nil Result 5.71 IU/mL 11/28/2020 1:37 PM CDT [facility] Nil Result 0.28 IU/mL 11/28/2020 1:37 PM CDT [facility] Specimen Anatomical Collection Method Collection Time Receive d Time (Source) Location / / Volume Laterality Blood (Blood, 11/27/2020 7:10 AM 11/28/19 21 Venous) CDT 10:18 AM CDT Narrative [facility] - 11/28/2020 1:37 PM CDT Specimen Information: Specimen ID: [id number] Specimen Type: Blood Specimen Collection Start Date: ??7:11 AM Specimen Received Date: 11/27/2020 10:18 AM Specimen ID: [id number] Specimen Type: Blood Specimen Collection Start Date: ??7:11 AM Specimen Received Date: 11/27/2020 10:18 AM Specimen ID: [id number] Specimen Type: Blood Specimen Collection Start Date: ??7:11 AM Specimen Received Date: 11/27/2020 10:18 AM Specimen ID: [id number] Specimen Type: Blood Specimen Collection Start Date: ??7:10 AM Specimen Received Date: 11/27/2020 10:18 AM Eloy Chavez M.D. LAB MICROBIOLOGY - BLOOD ORD ERABLES Performing Organization Address City/State/ZIP Code Phon e Number [facility] [address] [place], [place] [address] [facility] [place] [address] Laboratory Medicine and Pathology [address] MURILLO HLA Class II SAB Antibody Screen (11/27/2020 7:10 AM CDT) [facility] Method Time Signature Class II SAB Negative Not Applicable 11/30/2020 DBB8 Overall 9:49 AM CDT Result Class II SAB 0 11/30/2020 DBB8 cPRA 9:49 AM CDT Comment: ----ADDITIONAL INFORMATION---- This PRA is a [facility] calculated PRA. PRA is based on the antigen frequency of the Tissue Typing patient a nd donor population. ??PRA reflects all antibodie s with a normalized value (MFI) above 300. SAB DRB1 Specificity NONE 11/30/2020 9:49 AM CDT DBB8 SAB [id number] Specificity NONE 11/30/2020 9:49 A M CDT DBB8 SAB DQB1 Specificity NONE 11/30/2020 9:49 AM CDT DBB8 SAB DPB1 Specificity NONE 11/30/2020 9:49 AM CDT DBB8 Comment: ----ADDITIONAL INFORMATION---- Method: Luminex Flow Cytometry CLIA: [id number] ??CLIA Hoop Punch And Coiler Operator: KRISTAL MIMS MD,PhD Specimen Anatomical Collection Method Collection Time Receive d Time (Source) Location / / Volume Laterality Blood (Blood, 11/27/2020 7:10 AM 11/28/19 21 8:32 Venous) CDT AM CDT Eloy Chavez M.D. LAB HLA ORDERABLES Performing Organization Address City/[facility] Phon e Number [facility] - [address] [place], [place] [address] [facility] [place] [address] [place] [address] Laboratories-[address] HLA Class I SAB Antibody Screen (11/27/2020 7:10 AM CDT) Patholo gist Method Time Signature Class I SAB Negative Not Applicable 11/30/2020 DBB8 Overall 9:49 AM CDT Result Class I SAB 0 11/30/2020 DBB8 cPRA 9:49 AM CDT Comment: ----ADDITIONAL INFORMATION---- This PRA is a [facility] ue Typing Laboratory calculated PRA. PRA is based on the antigen frequency of the Tissue Typing patient a nd donor population. ??PRA reflects all antibodie s with a normalized value (MFI) above 300. SAB A Specificity NONE 11/30/2020 9:49 AM CDT DBB8 SAB B Specificity NONE 11/30/2020 9:49 AM CDT DBB8 SAB C Specificity NONE 11/30/2020 9:49 AM CDT DBB8 Comment: ----ADDITIONAL INFORMATION---- Method: Luminex Flow Cytometry CLIA: [id number] ??CLIA Hoop Punch And Coiler Operator: KRISTAL MIMS MD,PhD Specimen Anatomical Collection Method Collection Time Receive d Time (Source) Location / / Volume Laterality Blood (Blood, 11/27/2020 7:10 AM 11/28/19 21 8:32 Venous) CDT AM CDT Eloy Chavez M.D. LAB HLA ORDERABLES Performing Organization Address City/[facility] Phon e Number [facility] - [address] [place], [place] [address] [facility] DBB[address] [place] [address] [facility]-[address] Hepatitis A IgM Ab, Serum (11/27/2020 7:10 AM CDT) P athologist Signature Hepatitis A Negative Negative 11/27/2020 SDSC IgM Ab, S 1:19 PM CDT Comment: Result does not exclude the possibility of exposure to hepatitis A virus. ??Antibody level duri ng early infection stage may be below the limit of detectio n of the assay. Specimen Anatomical Collection Method Collection Time Receive d Time (Source) Location / / Volume Laterality Blood (Blood, 11/27/2020 7:10 AM 11/28/19 Venous) CDT 10:50 AM CDT Eloy Chavez M.D. LAB MICROBIOLOGY - BLOOD ORD ERAKAJAL Performing Organization Address City/[facility] Phon e Number [facility] [address] [place] [address] 05 [facility] [place] [address] Laboratory Medicine and Pathology [address] [place] [address] Dr. MURILLO Hepatitis A IgG Ab, Serum (11/27/2020 7:10 AM CDT) athologist Signature Hepatitis A Positive 11/27/2020 [facility] IgG Ab, S 1:22 PM CDT Comment: Result indicates immunity to hepatitis A infection from either vaccination or past exposure to h epatitis A. False-positive results may be observed i n patients with CMV antibodies or heterophilic antibodies. ? ? ----REFERENCE VALUE---- Unvaccinated: Negative Vaccinated: Positive Specimen Anatomical Collection Method Collection Time Receive d Time (Source) Location / / Volume Laterality Blood (Blood, 11/27/2020 7:10 AM 11/28/19 Venous) CDT 10:50 AM CDT Eloy Chavez M.D. LAB MICROBIOLOGY - BLOOD ORD TK Performing Organization Address City/[facility] Code Phon e Number [facility] [address] [place], [place] [address] [facility] [place] [address] Laboratory Medicine and Pathology [address] [place] [address] Dr. MURILLO (ABNORMAL) Creatinine, Dialysis No Call, Serum (11/27/2020 7:10 AM CDT) athologist Signature Creatinine, S 4.00 (H) 0.74 - 11/27/2020 DTL 1.35 mg/dL 8:24 AM CDT Specimen Anatomical Collection Method Collection Time Receive d Time (Source) Location / / Volume Laterality Blood (Blood, 11/27/2020 7:10 AM 11/28/19 7:27 Venous) CDT AM CDT Eloy Chavez M.D. LAB BLOOD ADD-ON Performing Organization Address City/State/ZIP Code Phon e Number [facility] - [address] [place], [place] [address] [facility] [place] [address] Laboratories-[employer] [facility] [address] documented in this encounter Visit Diagnoses Diagnosis Pretransplant Recipient Evaluation Exam - Primary Chronic Kidney Disease Stage 4 Glomerula r Filtration Rate 15-29 (HCC) Pretransplant Recipient Evaluation Exam Chronic Kidney Disease Stage 4 Glomerula r Filtration Rate 15-29 (HCC) Pretransplant Recipient Evaluation Exam Chronic Kidney Disease Stage 4 Glomerula r Filtration Rate 15-29 (HCC) documented in this encounter Additional Health Concerns Assessment Noted Time PHQ-9 Depression Total Score: 3 11/22/2019 7:34 AM CDT documented as of this encounter Care Teams Superintendent Transportation Relationship Specialty Start Date End Date Elsewhere, Pcp PCP - General Family Medicine 07/29/17 [facility] - Laboratory Medicine 04/12/[address] [address] documented as of this encounter
--- OUTSIDE RECORDS SUMMARY | 2022-04-13 12:22 | XMS_ITS | Encounter Summary ---
:1955 Author Organization [facility] Address [address] [place] [address] Care Team Providers Name Role Phone Elsewhere, Pcp Primary Care Provider Unavailable Reason for Referral Outpatient (Routine) - Closed Specialty Diagnoses / Procedures Referred By Contact Refer red To Contact Otorhinolaryngology Leanne Alex [place] M.D. 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 [address] [place] [phone] 04/25/2022 Office Visit Otorhinolaryngology Dex Matta APRN, C.N.P., M.S.N. [address] [place] [phone] 05/08/2022 Appointment Laboratory Medicine Angélica Granger P.A.-C. [address] [place] [phone] 05/08/2022 Clinical Admitting/Central Communication Scheduling 05/10/2022 Appointment Radiology Jeremie Rose M.D. [address] [place] [phone] 05/10/2022 Comprehensive Visit Orthopedic Surgery Warner Graves M.D. [address] [place] [phone] 05/22/2022 Appointment Laboratory Medicine Angélica Granger P.A.-C. [address] [place] [phone] 06/05/2022 Appointment Laboratory Medicine Angélica Granger P.A.-C. [address] [place] [phone] 06/19/2022 Appointment Laboratory Medicine Angélica Granger P.A.-C. [address] [place] [phone] 07/03/2022 Appointment Laboratory Medicine Angélica Granger P.A.-C. [address] [place] [phone] 07/17/2022 Appointment Laboratory Medicine Angélica Granger P.A.-C. [address] [place] [phone] 07/31/2022 Appointment Laboratory Medicine Angélica Granger P.A.-C. [address] [place] [phone] 08/14/2022 Appointment Laboratory Medicine Angélica Granger P.A.-C. [address] [place] [phone] 08/28/2022 Appointment Laboratory Medicine Angélica Granger P.A.-C. [address] [place] [phone] Scheduled Orders Name Type Priority Associated Diagnoses Order S chedule CT Sinuses without Imaging RAD - Routine (most Rhinosinusitis Chronic Expected: IV Contrast inpatients and all outpatients) (Approximate), Expires: 08/30/2023 Scheduled Referrals Name Type Priority Associated Order Schedule Diagnoses Otorhinolaryngology office Outpatient Routine E xpected: visit (clinic) Referral 08/29/2020 (Approximate), Expires: 08/30/2023 documented as of this encounter Visit Diagnoses Diagnosis Rhinosinusitis Chronic - Primary documented in this encounter Additional Health Concerns Assessment Noted Time PHQ-9 Depression Total Score: 3 11/22/2019 7:34 AM CDT documented as of this encounter Care Teams Insole Toe Snipping Machine Operator Relationship Specialty Start Date End Date Elsewhere, Pcp PCP - General Family Medicine 07/29/17 [facility] - Laboratory Medicine 04/12/[address] [address] documented as of this encounter
--- OUTSIDE RECORDS SUMMARY | 2022-04-13 12:22 | XMS_ITS | Encounter Summary ---
:1955 Author Organization [facility] Address [address] [place] [address] Care Team Providers Name Role Phone Elsewhere, Pcp Primary Care Provider Unavailable Encounter Details Date Type Department Care Team Description 08/30/2020 Hospital Encounter Department of [facility] And Laboratory Medicine Sada Hobson Chronic Kidney in [address] Disease Stage 4 (HCC) [place], [place] 300 [facility] [address] [place], [place] [phone] [address] (Work) [phone] Social History Tobacco Use Types Packs/Day Years [...] at Date Recorded Male 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 Medication Therapy Assisted Not Anticoagulant tacrolimus (PROGRAF) Take 2 capsules (1 360 capsule 3 202007/16/2021 0.5 mg mg total) by mouth 2 capsuleIndications: (two) times a day. Transplant Liver (HCC), Medication Therapy Chaplain Not Anticoagulant torsemide (DEMADEX) 10 Take 3 [...] Appointment Laboratory Medicine Angélica Granger, SaeedADemetrius-CDemetrius [address] [place] [phone] 04/25/2022 Office Visit Otorhinolaryngology Dex Matta APRN, C.N.P., M.S.N. [address] [place] [phone] 05/08/2022 Appointment Laboratory Medicine Angélica Granger P.A.-CDemetrius [address] [place] [phone] 05/08/2022 Clinical Admitting/Central Communication Scheduling 05/10/2022 Appointment Radiology Jeremie Rose M.D. [address] [place] [phone] 05/10/2022 Comprehensive Visit Orthopedic Surgery Warner Graves M.D. [address] [place] [phone] 05/22/2022 Appointment Laboratory Medicine Angélica Granger P.A.-C. [address] [place] [phone] 06/05/2022 Appointment Laboratory Medicine Angélica Granger P.A.-C. [address] [place] [phone] 06/19/2022 Appointment Laboratory Medicine Angélica Granger P.A.-C. [address] [place] [phone] 07/03/2022 Appointment Laboratory Medicine Angélica Granger P.A.-C. [address] [place] [phone] 07/17/2022 Appointment Laboratory Medicine Angélica Granger P.A.-C. [address] [place] [phone] 07/31/2022 Appointment Laboratory Medicine Angélica Granger P.A.-C. [address] [place] [phone] 08/14/2022 Appointment Laboratory Angélica Royal P.A.-C. [address] [place] [phone] 08/28/2022 Appointment Laboratory Angélica Royal P.A.-C. [address] [place] [phone] documented as of this encounter Procedures Procedure Name Priority Date/Time Associated Diagnosis Comme nts ALBUMIN, RANDOM, U Routine 08/30/2020 8:58 AM Hypertension And Results for this SHUT OFF WORKER Chronic Kidney procedure are in Disease Stage 4 (HCC) the re sults section. URINALYSIS WITH Routine 08/30/2020 8:58 AM Hypertension And Re sults for this MICROSCOPIC SHUT OFF WORKER Chronic Kidney procedure are in Disease Stage 4 (HCC) the re sults section. documented in this encounter Results (ABNORMAL) Albumin, Random, Urine (08/30/2020 8:58 AM SHUT OFF WORKER) [facility] Method Time Signature Microalbumin 728.0 mg/L 08/30/2020 OWAT 12:06 PM SHUT OFF WORKER Creatinine 67 mg/dL 08/30/2020 OWAT 11:11 AM SHUT OFF WORKER Albumin/Creatinin 1087 (H) <17 mg/g 08/30/2020 OWAT e Ratio 12:06 PM SHUT OFF WORKER Specimen Anatomical Collection Method Collection Time Receive d Time (Source) Location / / Volume Laterality Urine (Urine, 08/30/2020 8:58 AM 08/31/19 21 Voided) SHUT OFF WORKER 10:28 AM SHUT OFF WORKER Joce Bailey M.D. LAB URINE ORDERABLES Performing Organization Address City/State/ZIP Code Phon e Number [facility]- [address] [place] [address] [place] [address] System in [place] [address] (ABNORMAL) Urinalysis with Microscopic: Urine, Voided (08/30/2020 8:58 AM SHUT OFF WORKER) athologist Signature Source Midstream 08/30/2020 FB60 9:06 AM SHUT OFF WORKER Clarity Clear Clear 08/30/2020 FB60 9:16 AM SHUT OFF WORKER Color Yellow 08/30/2020 FB60 9:16 AM SHUT OFF WORKER Comment: ----REFERENCE VALUE---- Colorless Yellow Bhakti Blood Small (A) Negative 08/30/2020 9:16 AM SHUT OFF WORKER FB60 Nitrite Negative Negative 08/30/2020 9:16 AM SHUT OFF WORKER FB60 Leukocyte Esterase Negative Negative 08/30/2020 9:16 AM CS T FB60 Protein >=300 (A) mg/dL 08/30/2020 9:16 AM SHUT OFF WORKER FB60 Comment: ----REFERENCE VALUE---- Negative Trace Glucose Negative Negative mg/dL 08/30/2020 9:16 AM SHUT OFF WORKER FB 60 Ketones, QI(U) Negative Negative mg/dL 08/30/2020 9:[address] FB60 Bilirubin Negative Negative 08/30/2020 9:16 AM SHUT OFF WORKER FB60 pH 7.0 5.0 - 8.0 08/30/2020 9:16 AM SHUT OFF WORKER FB60 Specific [place] 1.015 1.001 - 1.035 08/30/2020 9:16 AM SHUT OFF WORKER FB60 Urobilinogen 0.2 0.2 - 1.0 mg/dL 08/30/2020 9:16 AM CS T FB60 White Blood Cells None Seen /hpf 08/30/2020 9:16 AM SHUT OFF WORKER FB60 Comment: ----REFERENCE VALUE---- Males: 0-3 Females: 0-10 Unknown: 0-10 Red Blood Cells Occ-2 0 - 2 /hpf 08/30/2020 9:16 AM SHUT OFF WORKER FB60 Specimen Anatomical Collection Method Collection Time Receive d Time (Source) Location / / Volume Laterality Urine (Urine, 08/30/2020 8:58 AM 08/31/19 9:02 Voided) SHUT OFF WORKER AM SHUT OFF WORKER Joce Bailey M.D. LAB URINE ORDERABLES Performing Organization Address City/State/ZIP Code Phon e Number [address] [place], [place] [id number] [place] [address] LAB FB60 [place] [address] [address] documented in this encounter Visit Diagnoses Diagnosis Hypertension And Chronic Kidney Disease Stage 4 (HCC) documented in this encounter Additional Health Concerns Assessment Noted Time PHQ-9 Depression Total Score: 3 11/22/2019 7:34 AM CDT documented as of this encounter Care Teams Rock Contractor Relationship Specialty Start Date End Date Elsewhere, Pcp PCP - General Family Medicine 07/29/17 [facility] - Laboratory Medicine 04/12/[address] [address] documented as of this encounter
--- OUTSIDE RECORDS SUMMARY | 2022-04-13 12:22 | XMS_ITS | Encounter Summary ---
:1955 Author Organization [facility] Address [address] [place] [address] Care Team Providers Name Role Phone Elsewhere, Pcp Primary Care Provider Unavailable Reason for Referral MRI/CAT/PET Scan (Routine) - Closed Specialty Diagnoses / Procedures Referred By Contact Refer red To Contact Radiology Diagnoses Pneumonia Connie Aaron [facility] Procedures CT Chest without IV Contrast M.B.B.S. 200 [place] [address] Referral ID Status Reason Start Date Expiration Date Visits Requ ested Visits Authorized [id number] Closed 08/28/2020 08/28/2021 1 1 EY CAD TECHNICIAN Reason for Visit MRI/CAT/PET Scan (Routine) - Closed Specialty Diagnoses / Procedures Referred By Contact Refer red To Contact Radiology Diagnoses Pneumonia Connie Aaron, [facility] Procedures CT Chest without IV Contrast M.B.B.S. 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 Medication Therapy Correction Not Anticoagulant tacrolimus (PROGRAF) Take 2 capsules (1 360 capsule 3 202007/16/2021 0.5 mg mg total) by mouth 2 capsuleIndications: (two) times a day. Transplant Liver (HCC), Medication Therapy Correction Not Anticoagulant torsemide (DEMADEX) 10 Take 3 [...] Laboratory Medicine Angélica Granger P.A.-C. [address] [place] [phone] 04/25/2022 Office Visit Otorhinolaryngology Dex Matta APRN, C.N.P., M.S.N. [address] [place] [phone] 05/08/2022 Appointment Laboratory Medicine Angélica Granger P.A.-C. [address] [place] [phone] 05/08/2022 Clinical Admitting/Central Communication Scheduling 05/10/2022 Appointment Radiology Jeremie Rose M.D. [address] [place] [phone] 05/10/2022 Comprehensive Visit Orthopedic Surgery Warner Graves M.D. [address] [place] [phone] 05/22/2022 Appointment Laboratory Medicine Angélica Granger P.A.-C. [address] [place] [phone] 06/05/2022 Appointment Laboratory Medicine Angélica Granger P.A.-C. [address] [place] [phone] 06/19/2022 Appointment Laboratory Medicine Angélica Granger P.A.-C. [address] [place] [phone] 07/03/2022 Appointment Laboratory Medicine Angélica Granger P.A.-C. [address] [place] [phone] 07/17/2022 Appointment Laboratory Medicine Angélica Granger P.A.-C. [address] [place] [phone] 07/31/2022 Appointment Laboratory Medicine Angélica Granger P.A.-C. [address] [place] [phone] 08/14/2022 Appointment Laboratory Medicine Angélica Granger P.A.-C. [address] [place] [phone] 08/28/2022 Appointment Laboratory Medicine Angélica Granger P.A.-C. [address] [place] [phone] documented as of this encounter Procedures Procedure Name Priority Date/Time Associated Comments Diagnosis CT CHEST WITHOUT RAD - Routine 08/31/2020 3:07 Pneumonia Results for this IV CONTRAST (most inpatients PM SURVEY CAD TECHNICIAN procedure a re in and all the results outpatients) section. documented in this encounter Results CT Chest without IV Contrast (08/31/2020 3:07 PM SURVEY CAD TECHNICIAN) Anatomical Region Laterality Modality Chest, Thoracic RST LOS, Thoracic ARZ N/A Co mputed Tomography, Computed LOS, Thoracic FLA LOS Tomography Specimen (Source) Anatomical Collection Method Collection Time Re ceived Time Location / / Volume Laterality 08/31/2020 3:10 PM SURVEY CAD TECHNICIAN Impressions 08/31/2020 3:15 PM SURVEY CAD TECHNICIAN 1. Improved bibasilar consolidation compatible with infection or inflammation since 01/31/2020. 2. Persistent airway wall thickening, ar eas of mucus plugging and peribronchiolar nodularity also compatib le with inflammatory or infectious airway disease. Narrative 08/31/2020 3:15 PM SURVEY CAD TECHNICIAN EXAM: CT CHEST WITHOUT IV CONTRAST COMPARISON: 01/31/2020, 12/29/2019 and 0 11/23/2019. FINDINGS: Since 01/31/2020, the areas of nodular/m asslike consolidation in the lower lobes have nearly resolved. There is residual peribronchial or clustered nodularity and tree-in-bud opacities predominantly in the lower lungs with some mucus plugging of mildly dilated peripheral br onchi in the medial segment of the right middle lobe and basilar segments of both lower lobes. These findings are compatible with an infectious or inflamm atory airway process. No new focal areas of consolidation. The approximately 8 x 16 mm fluid attenu ation focus in the anterior mediastinum is unchanged. Old right clavicle and anterior rib fra ctures. Age-related changes in the skeleton, but no aggressive osseous lesi ons are identified. Postoperative changes from hepatic trans plant. Cystic lesion in the tail of pancreas is only partially visualized. S plenomegaly. Otherwise the visualized upper abdomen appears negative. Connie Barron IMG CT PROCEDURES documented in this encounter Visit Diagnoses Diagnosis Pneumonia documented in this encounter Additional Health Concerns Assessment Noted Time PHQ-9 Depression Total Score: 3 11/22/2019 7:34 AM CDT documented as of this encounter Care Teams Hot Dog Vendor Relationship Specialty Start Date End Date Elsewhere, Pcp PCP - General Family Medicine 07/29/17 [facility] - Laboratory Medicine 04/12/20 [place] [address] documented as of this encounter
--- OUTSIDE RECORDS SUMMARY | 2022-04-13 12:22 | XMS_ITS | Encounter Summary ---
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 - 09/01/2020 9:34 AM CST I called Mr. Singh this morning and had the opportunity to discuss the results of the tests ordered on 08/28 during his visit to the general pulmonary clinic. Spirometry: Mild obstruction with no significant bronchodilator response-some improvement in FVC noted CT CHEST: Improvement in bibasilar consolidation with persistent mucus plugging and bronchial thickening. Sputum Culture: Serrati 2+ He has decided to postpone CT sinus Had the opportunity to review bronchial hygiene technique with our nurses yesterday. Plan: -He will initiate bronchial hygiene regimen with nebulized albuterol, hypertonic saline and Aerobikatwice daily -I have contacted ID and will wait to hear back from them re: treat versus not treat serratia in thesetting of improved CT but chronic cough in a immunocompromised host Addendum: After discussing with transplant ID (Trung Plasencia P.A.-C.) I have sent a prescription of Bactrim DS 1tablet daily for 7 days. The Nephrology team is also in agreement with the choice of antibiotic considering the multiple allergies. Mr. Singh is in agreement with this plan. R CREW SUPERVISOR documented in this encounter Plan of Treatment Upcoming Encounters Date Type Specialty Care Team Description 04/24/2022 Appointment Laboratory Medicine Angélica Granger P.A.-C. [address] [place] [phone] 04/25/2022 Office Visit Otorhinolaryngology Dex Matta APRN CDemetriusNJuan Miguel, M.S.N. [address] [place] [phone] 05/08/2022 Appointment Laboratory Medicine Angélica Granger P.A.-C. [address] [place] [phone] 05/08/2022 Clinical Admitting/Central Communication Scheduling 05/10/2022 Appointment Radiology Jeremie Rose M.D. [address] [place] [phone] 05/10/2022 Comprehensive Visit Orthopedic Surgery Wraner Graves M.D. [address] [place] [phone] 05/22/2022 Appointment Laboratory Medicine Angélica Granger P.A.-C. [address] [place] [phone] 06/05/2022 Appointment Laboratory Medicine Angélica Granger P.A.-C. [address] [place] [phone] 06/19/2022 Appointment Laboratory Medicine Angélica Granger P.A.-C. [address] [place] [phone] 07/03/2022 Appointment Laboratory Medicine Angélica Granger P.A.-C. [address] [place] [phone] 07/17/2022 Appointment Laboratory Medicine Angélica Granger P.A.-C. [address] [place] [phone] 07/31/2022 Appointment Laboratory Medicine Angélica Granger P.A.-C. [address] [place] [phone] 08/14/2022 Appointment Laboratory Medicine Angélica Granger P.A.-C. [address] [place] [phone] 08/28/2022 Appointment Laboratory Medicine Angélica Granger P.A.-C. [address] [place] [phone] documented as of this encounter Visit Diagnoses Not on filedocumented in this encounter Additional Health Concerns Assessment Noted Time PHQ-9 Depression Total Score: 3 11/22/2019 7:34 AM CDT documented as of this encounter Care Teams Painting Contractor Relationship Specialty Start Date End Date Elsewhere, Pcp PCP - General Family Medicine 07/29/17 [facility] - Laboratory Medicine 04/12/[address] [address] documented as of this encounter
--- OUTSIDE RECORDS SUMMARY | 2022-04-13 12:22 | XMS_ITS | Encounter Summary ---
:1955 Author Organization 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 Medication Therapy Care Coordinator Not Anticoagulant tacrolimus (PROGRAF) Take 2 capsules (1 360 capsule 3 202007/16/2021 0.5 mg mg total) by mouth 2 capsuleIndications: (two) times a day. Transplant Liver (HCC), Medication Therapy Custodial Not Anticoagulant torsemide (DEMADEX) 10 Take 3 [...] Laboratory Medicine Angélica Granger, P.A.-C. [address] [place] [phone] 04/25/2022 Office Visit Otorhinolaryngology Dex Matta APRN, C.N.P., M.S.N. [address] [place] [phone] 05/08/2022 Appointment Laboratory Medicine Angélica Granger, P.A.-C. [address] [place] [phone] 05/08/2022 Clinical Admitting/Central Communication Scheduling 05/10/2022 Appointment Radiology Jeremie Rose M.D. [address] [place] [phone] 05/10/2022 Comprehensive Visit Orthopedic Surgery Warner Graves M.D. [address] [place] [phone] 05/22/2022 Appointment Laboratory Medicine Angélica Granger P.A.-C. [address] [place] [phone] 06/05/2022 Appointment Laboratory Medicine Angélica Granger P.A.-C. [address] [place] [phone] 06/19/2022 Appointment Laboratory Medicine Angélica Granger P.A.-C. [address] [place] [phone] 07/03/2022 Appointment Laboratory Medicine Angélica Granger P.A.-C. [address] [place] [phone] 07/17/2022 Appointment Laboratory Medicine Angélica Granger P.A.-C. [address] [place] [phone] 07/31/2022 Appointment Laboratory Medicine Angélica Granger P.A.-C. [address] [place] [phone] 08/14/2022 Appointment Laboratory Medicine Angélica Granger P.A.-C. [address] [place] [phone] 08/28/2022 Appointment Laboratory Medicine Angélica Granger P.A.-C. [address] [place] [phone] documented as of this encounter Procedures Procedure Name Priority Date/Time Associated Comments Diagnosis BACTERIAL CULTURE, Routine 08/28/2020 3:59 PM Cough Res ults for this AEROBIC + SUSC, RESP DOOR INSTALLER procedu re are in the results section. MYCOBACTERIAL CULTURE, Routine 08/28/2020 3:59 PM Cough Results for this V DOOR INSTALLER procedure are i n the results section. FUNGAL SMEAR Routine 08/28/2020 3:59 PM Cough Results f or this DOOR INSTALLER procedure are i n the results section. ACID FAST SMEAR FOR Routine 08/28/2020 3:59 PM Cough Re sults for this MYCOBACTERIUM DOOR INSTALLER procedure are in the results section. GRAM STAIN Routine 08/28/2020 3:59 PM Cough Results f or this DOOR INSTALLER procedure are i n the results section. FUNGAL CULTURE, Routine 08/28/2020 3:59 PM Cough Result s for this ROUTINE DOOR INSTALLER procedure are i n the results section. documented in this encounter Results Mycobacterial Culture (08/28/2020 3:59 PM DOOR INSTALLER) [facility] Method Time Signature Mycobacterial No growth 10/10/2020 DTL Culture after 42 1:01 AM CDT days of incubation . Specimen Anatomical Collection Method Collection Time Receive d Time (Source) Location / / Volume Laterality Sputum (Sputum) 08/28/2020 3:59 PM 2020 5:01 DOOR INSTALLER PM DOOR INSTALLER Comment: Specimen Source Site: Sputum Connie CottrellB.S. LAB MICROBIOLOGY - GENERAL ORDERABLES Performing Organization Address City/[facility]/ZIP Code Phon e Number [facility] - 200 [place], [place] [address] [place] [address] Acid Fast Smear For Mycobacterium (08/28/2020 3:59 PM DOOR INSTALLER) [facility] Method Time Signature Acid Fast Smear Negative. 08/28/2020 DTL For Mycobacterium 10:56 PM DOOR INSTALLER Specimen Anatomical Collection Method Collection Time Receive d Time (Source) Location / / Volume Laterality Sputum (Sputum) 08/28/2020 3:59 PM 2020 5:01 DOOR INSTALLER PM DOOR INSTALLER Comment: Specimen Source Site: Sputum Connie CottrellB.S. LAB MICROBIOLOGY - GENERAL ORDERABLES Performing Organization Address City/[facility]/ZIP [facility] Phon e Number [facility] - [address] [place], [place] [address] [facility] [place] [address] (ABNORMAL) Fungal Culture, Routine (08/28/2020 3:59 PM DOOR INSTALLER) [facility] Method Time Signature Fungal PENICILLIUM sp 09/21/2020 DT Culture, Few 12:32 PM CDT Routine (A) Comment: Susceptibility testing is not routinely recommended for this organism. Clinical correlation requ ired. Specimen Anatomical Collection Method Collection Time Receive d Time (Source) Location / / Volume Laterality Sputum (Sputum) 08/28/2020 3:59 PM 2020 5:01 DOOR INSTALLER PM DOOR INSTALLER Comment: Specimen Source Site: Sputum Connie Keller.B.S. LAB MICROBIOLOGY - GENERAL ORDERABLES Performing Organization Address City/[facility] Phon e Number [facility] - [address] Fungal Smear (08/28/2020 3:59 PM DOOR INSTALLER) athologist Signature Fungal Smear Negative. 08/28/2020 DT 10:39 PM DOOR INSTALLER Specimen Anatomical Collection Method Collection Time Receive d Time (Source) Location / / Volume Laterality Sputum (Sputum) 08/28/2020 3:59 PM 2020 5:01 DOOR INSTALLER PM DOOR INSTALLER Comment: Specimen Source Site: Sputum Connie Keller.B.S. LAB MICROBIOLOGY - GENERAL ORDERABLES Performing Organization Address City/[facility] Phon e Number [facility] - [address] (ABNORMAL) Bacterial Culture, Aerobic + Susc, Resp (08/28/2020 3:59 PM DOOR INSTALLER) [facility] Method Time Signature Bacterial With usual 08/31/2020 DT Culture, efrem (A) 12:07 PM DOOR INSTALLER Aerobic, Resp Bacterial SERRATIA MARCESCENS 08/31/2020 DTL Culture, 2+ 12:07 PM DOOR INSTALLER Aerobic, Resp (A) Comment: This organism may contain an inducible b eta-lactamase. Second- or third-generation cephalospori n monotherapy may result in the emergence of high-level resistance. Preferred empiric therapy, p ending antimicrobial susceptibility results, is cefepime, a f luoroquinolone, or a carbapenem, unless clinically contr aindicated. Specimen Anatomical Collection Method Collection Time Receive d Time (Source) Location / / Volume Laterality Sputum (Sputum) 08/28/2020 3:59 PM 2020 5:01 DOOR INSTALLER PM DOOR INSTALLER Comment: Specimen Source Site: Sputum Organism Antibiotic [...] <=0.5/9.5 mc g/mL: Sulfamethoxazole DAVID (MCG/ML) Susceptible Connie RocaSDemetrius LAB MICROBIOLOGY - GENERAL ORDERABLES Performing Organization Address City/[facility] Phon e Number [facility] - [address] [address] [address] Gram Stain (08/28/2020 3:59 PM DOOR INSTALLER) [facility] gist Method Time Signature Gram Stain Mixed efrem. 08/28/2020 DT White blood cells, Many. 6:24 PM DOOR INSTALLER Epithelial cells, Moderate. Specimen Anatomical Collection Method Collection Time Receive d Time (Source) Location / / Volume Laterality Sputum (Sputum) 08/28/2020 3:59 PM 2020 5:01 DOOR INSTALLER PM DOOR INSTALLER Comment: Specimen Source Site: Sputum Connie RocaSDemetrius LAB MICROBIOLOGY - GENERAL ORDERABLES Performing Organization Address [facility] Phon e Number [facility] - [id number] [place] [address] documented in this encounter Visit Diagnoses Diagnosis Cough Unspecified Type documented in this encounter Additional Health Concerns Assessment Noted Time PHQ-9 Depression Total Score: 3 11/22/2019 7:34 AM CDT documented as of this encounter Care Teams Stationary Engineer Relationship Specialty Start Date End Date Elsewhere, Pcp PCP - General Family Medicine 07/29/17 [facility] - Laboratory Medicine 04/12/[address] [address] documented as of this encounter
--- OUTSIDE RECORDS SUMMARY | 2022-04-13 12:23 | XMS_ITS | Encounter Summary ---
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 [address] [place] [phone] 04/25/2022 Office Visit Otorhinolaryngology Dex Matta, RAMONA, C.N.P., M.S.N. [address] [place] [phone] 05/08/2022 Appointment Laboratory Medicine Angélica Granger, P.A.-C. [address] [place] [phone] 05/08/2022 Clinical Admitting/Central Communication Scheduling 05/10/2022 Appointment Radiology Jeremie Rose M.D. [address] [place] [phone] 05/10/2022 Comprehensive Visit Orthopedic Surgery Warner Graves M.D. [address] [place] [phone] 05/22/2022 Appointment Laboratory Medicine Angélica Granger P.A.-C. [address] [place] [phone] 06/05/2022 Appointment Laboratory Medicine Angélica Granger P.A.-C. [address] [place] [phone] 06/19/2022 Appointment Laboratory Medicine Angélica Granger P.A.-C. [address] [place] [phone] 07/03/2022 Appointment Laboratory Medicine Angélica Granger P.A.-C. [address] [place] [phone] 07/17/2022 Appointment Laboratory Medicine Angélica Granger P.A.-C. [address] [place] [phone] 07/31/2022 Appointment Laboratory Medicine Angélica Granger P.A.-C. [address] [place] [phone] 08/14/2022 Appointment Laboratory Medicine Angélica Granger P.A.-C. [address] [place] [phone] 08/28/2022 Appointment Laboratory Medicine Angélica Granger P.A.-C. [address] [place] [phone] documented as of this encounter Procedures Procedure Name Priority Date/Time Associated Diagnosis Comme nts SARS CORONAVIRUS-2 Routine 08/25/2020 11:23 AM Contact With An d Results for this RNA, V ACID LEVELER (Suspected) Exposure procedu re are in To COVID-19 the results Preprocedural Lab section. Exam documented in this encounter Results SARS Coronavirus-2 RNA, V Asymptomatic (08/25/2020 11:23 AM ACID LEVELER) [facility] Method Time Signature SARS-CoV-2 Swab, 08/26/2020 MKTO Specimen Nasopharynx 3:20 AM ACID LEVELER Source SARS CoV-2 Undetected Undetected 08/26/2020 MKTO RNA, TMA 3:20 AM ACID LEVELER Comment: SARS-CoV-2 RNA absent. This result does not rule out COVID-19 in the patient, as the sensitivity of the test depends o n the timing of the specimen collection and the quality of the specim en. Result should be correlated with patient's history and clinical presentat ion. ----ADDITIONAL INFORMATION---- This molecular amplification test was pe rformed using the Aptima SARS-CoV-2 assay ([employer] on the [employer] tem under emergency use authorization (EUA) by the U.S. Food and Drug Administ ration. Fact sheets for this EUA assay can be fo und at the following links: For Healthcare Providers: https://www.fd a.gov/media/230957/download For Patients: https://www.fda.gov/media/ 707768/download Specimen Anatomical Collection Method Collection Time Receive d Time (Source) Location / / Volume Laterality Varies 08/25/2020 11:23 08/25/2020 7:24 (Nasopharynx) AM ACID LEVELER PM ACID LEVELER Toro Pena M.D. LAB MICROBIOLOGY - GENERAL O GLADYS Performing Organization Address City/State/ZIP Code Phon e Number [facility]- [address] [place] [address] [place] [address] System [address] documented in this encounter Visit Diagnoses Diagnosis Contact With And (Suspected) Exposure To COVID-19 Preprocedural Lab Exam documented in this encounter Additional Health Concerns Infection Onset Date Last Indicated Resolved Time COVID19 Pending 08/24/2020 08/25/2020 08/26/2020 3:21 AM ACID LEVELER Assessment Noted Time PHQ-9 Depression Total Score: 3 11/22/2019 7:34 AM CDT documented as of this encounter Care Teams Boom Operator Relationship Specialty Start Date End Date Elsewhere, Pcp PCP - General Family Medicine 07/29/17 [facility] - Laboratory Medicine 04/12/20 [place] [phone] documented as of this encounter
--- OUTSIDE RECORDS SUMMARY | 2022-04-13 12:23 | XMS_ITS | Encounter Summary ---
:1955 Author Organization [facility] Address [address] [place] [address] Care Team Providers Name Role Phone Elsewhere, Pcp Primary Care Provider Unavailable Encounter Details Date Type Department Care Team Description 07/21/2020 Orders Only Department of Dotty Burrows Otorhinolaryngology in P.A.-C. 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 [address] [place] [phone] 05/08/2022 Appointment Laboratory Medicine Angélica Granger P.A.-CDemetrius [address] [place] [phone] 05/08/2022 Clinical Admitting/Central Communication Scheduling 05/10/2022 Appointment Radiology Jeremie Rose M.D. [address] [place] [phone] 05/10/2022 Comprehensive Visit Orthopedic Surgery Warner Graves M.D. [address] [place] [phone] 05/22/2022 Appointment Laboratory Medicine Angélica Granger P.A.-CDemetrius [address] [place] [phone] 06/05/2022 Appointment Laboratory Medicine Angélica Granger P.A.-C. [address] [place] [address] [phone] 06/19/2022 Appointment Laboratory Medicine Angélica Granger P.A.-C. [address] [place] [phone] 07/03/2022 Appointment Laboratory Medicine Angélica Granger P.A.-C. [address] [place] [phone] 07/17/2022 Appointment Laboratory Medicine Angélica Granger P.A.-C. [address] [place] [phone] 07/31/2022 Appointment Laboratory Medicine Angélica Granger P.A.-C. [address] [place] [phone] 08/14/2022 Appointment Laboratory Medicine Angélica Granger P.A.-C. [address] [place] [phone] 08/28/2022 Appointment Laboratory Medicine Angélica Granger P.A.-C. [address] [place] [phone] documented as of this encounter Visit Diagnoses Not on filedocumented in this encounter Additional Health Concerns Assessment Noted Time PHQ-9 Depression Total Score: 3 11/22/2019 7:34 AM CDT documented as of this encounter Care Teams .Net Architect Relationship Specialty Start Date End Date Elsewhere, Pcp PCP - General Family Medicine 07/29/17 [facility] - Laboratory Medicine 04/12/[address] [phone] documented as of this encounter
--- OUTSIDE RECORDS SUMMARY | 2022-04-13 12:23 | XMS_ITS | Encounter Summary ---
:1955 Author Organization [facility] Address [address] [place] [address] Care Team Providers Name Role Phone Elsewhere, Pcp Primary Care Provider Unavailable Reason for Visit Reason Comments Hypertension Blood pressure check after m edication changes on 05/22/2020 Outpatient (Routine) - Closed Specialty Diagnoses / Procedures Referred By Contact Refer red To Contact Nephrology and [facility] Hypertension Sada Hobson [address] [place] [phone] Referral ID Status Reason Start Date Expiration Date Visits Requ ested Visits Authorized [id number] Closed 05/22/2020 05/22/2021 1 1 Encounter Details Date Type Department Care Team Description 07/03/2020 Nurse Only Division of Nephrology Joce Epperson M.D. [address] [place] [phone] Hypertension (Blood and Hypertension in Taya Blake I., R.N. [address] [place] [phone] pressure check after [place], [place] medication changes on [address] [facility] 05/22/2020) [place] [phone] Social History Tobacco Use Types Packs/Day Years [...] at Date Recorded Male 05/16/2020 4:27 PM [employer] OFF[employer] documented as of this encounter Last Filed Vital Signs Vital Sign Reading Time Taken Comments Blood Pressure 110/58 07/03/2020 11:25 AM [employer]ER Pulse 80 07/03/2020 11:22 AM [employer] OFFICER Temperature - - Respiratory Rate - - Oxygen Saturation - - Inhaled Oxygen Concentration - - Weight 82.4 kg (181 lb 10.5 oz) 07/03/2020 11:22 AM [employer] OFFICER Height - - Body Mass Index 25.24 05/22/2020 3:32 PM [employer] documented in this encounter Progress Notes Taya Blake I., R.N. - 07/03/2020 10:30 AM CST Provider Name: Dr. Bailey Reason for Visit: New short-term patient; stopped amlodipine on 05/22/2020 and started nifedipine 60mg daily. Mr. Singh is currently taking three nifedipine 30 mg tablets daily. He recently visited with Dr. Pena in [place] and Dr. Pena requested Mr. Singh discuss PPI use the Dr. Bailey. I will communicate this information to Dr. Bailey for his recommendations. Relevant History: hypertension, cardiac disease and transplant: liver transplant in 1998 and 2012 Preferred arm use for BP: Either. Date last assessed: 05/22/2020 Home BP Monitor: Yes Date last assessed: Has not been assessed for accuracy Exercise: Yes Patient's weight is: Patient's weight is stable. Tobacco Use: Social History Tobacco Use Smoking Status Never Smoker Smokeless Tobacco Never Used Alcohol Use: Social History Substance and Sexual Activity Alcohol Use No ??? Frequency: Never ??? Binge frequency: Never Dietary Assessment: does not add salt to food, does not add salt when cooking and [place] not drink [place] [address] in the morning before medications and 150/75-80 in the afternoon. Mr. Singh also notices increased lower leg swelling in the afternoon. This is gone in the morning. Vitals: 07/03/20 1122 07/03/20 1123 07/03/20 1124 07/03/20 1125 BP: 120/70 124/64 120/64 110/58 BP Location: Left arm Left arm Right arm Right arm Patient Position: Sitting Sitting Sitting Standing Cuff Size: Regular Pulse: 80 Weight: 82.4 kg Plan of Care: In-office blood pressures are: within goal. Dizziness/Lightheadedness: denies dizziness or lightheadedness. Recommendations given to: continue current positive lifestyle choices, avoid use of NSAIDs, monitor and record BP and reviewed proper home BP monitoring technique Recommend having home blood pressure monitor assessed for accuracy on an annual basis. Instructed patient to call Nephrology & Hypertension Nurses with any issues or concerns. Medications: Continue on current medications for now. Patient Contact Information: Preferred contact: online message Dr. Bailey's business card was provided to the patient. Dr. Bailey will review this clinical information. [employer] OFFICER documented in this encounter Plan of Treatment Upcoming Encounters Date Type Specialty Care Team Description 04/24/2022 Appointment Laboratory Medicine Angélica Granger P.A.-C. [address] [place] [phone] 04/25/2022 Office Visit Otorhinolaryngology Dex Matta APRN, C.N.P., M.S.N. [address] [place] [phone] 05/08/2022 Appointment Laboratory Medicine Angélica Granger P.A.-C. [address] [place] [phone] 05/08/2022 Clinical Admitting/Central Communication Scheduling 05/10/2022 Appointment Radiology Jeremie Rose M.D. [address] [place] [phone] 05/10/2022 Comprehensive Visit Orthopedic Surgery Warner Graves M.D. [address] [place] [phone] 05/22/2022 Appointment Laboratory Medicine Angélica Granger P.A.-C. [address] [place] [phone] 06/05/2022 Appointment Laboratory Medicine Angélica Granger P.A.-C. [address] [place] [phone] 06/19/2022 Appointment Laboratory Medicine Angélica Granger P.A.-C. [address] [place] [phone] 07/03/2022 Appointment Laboratory Medicine Angélica Granger P.A.-C. [address] [place] [phone] 07/17/2022 Appointment Laboratory Medicine Angélica Granger P.A.-C. [address] [place] [phone] 07/31/2022 Appointment Laboratory Medicine Angélica Granger P.A.-C. [address] [place] [phone] 08/14/2022 Appointment Laboratory Medicine Angélica Granger P.A.-C. [address] [place] [phone] 08/28/2022 Appointment Laboratory Medicine Angélica Granger P.A.-C. [address] [place] [phone] documented as of this encounter Visit Diagnoses Diagnosis Chronic Kidney Disease Stage 4 Glomerula r Filtration Rate 15-29 (HCC) - Primary documented in this encounter Additional Health Concerns Assessment Noted Time PHQ-9 Depression Total Score: 3 11/22/2019 7:34 AM CDT documented as of this encounter Care Teams Coater Operator Insulation Board Relationship Specialty Start Date End Date Elsewhere, Pcp PCP - General Family Medicine 07/29/17 [facility] - Laboratory Medicine 04/12/[address] [address] documented as of this encounter
--- OUTSIDE RECORDS SUMMARY | 2022-04-13 12:23 | XMS_ITS | Encounter Summary ---
:1955 Author Organization [facility] Address [address] [place] [address] Care Team Providers Name Role Phone Elsewhere, Pcp Primary Care Provider Unavailable Reason for Referral Specialty Diagnoses / Procedures Referred By Contact Refer red To Contact Connie Aaron M.B.B.S. [address] [phone] Referral ID Status Reason Start Date Expiration Date Visits Requ ested Visits Authorized AIR PERSONALITY MRI/CAT/PET Scan (Routine) - Closed Specialty Diagnoses / Procedures Referred By Contact Refer red To Contact Radiology Diagnoses Pneumonia Connie Aaron, [facility] Procedures CT Chest without IV Contrast M.B.B.S. [address] [place] [phone] Referral ID Status Reason Start Date Expiration Date Visits Requ ested Visits Authorized [id number] Closed 08/28/2020 08/28/2021 1 1 AIR PERSONALITY Reason for Visit Outpatient (Routine) - Closed Specialty Diagnoses / Procedures Referred By Contact Refer red To Contact Pulmonary Medicine Diagnoses Cough Unspecified Type Avril Bright M.D. [address] [phone] Referral ID Status Reason Start Date Expiration Date Visits Requ ested Visits Authorized [id number] Closed 07/18/2020 07/18/2021 1 1 Encounter Details Date Type Department Care Team Description 08/28/2020 Comprehensive Visit Division of Pulmonary Genesis Aaron, Cough; Medicine in [facility] Pneumonia [place] [address] [place] [phone] Social History Tobacco Use Types Packs/Day Years [...] at Date Recorded Male 05/16/2020 4:27 PM ON AIR PERSONALITY documented as of this encounter Last Filed Vital Signs Vital Sign Reading Time Taken Comments Blood Pressure 149/82 08/28/2020 2:52 PM ON AIR PERSONALITY Pulse 61 08/28/2020 2:52 PM ON AIR PERSONALITY Temperature 36.3 ??C (97.3 ??F) 08/28/2020 2:45 PM ON AIR PERSONALITY Respiratory Rate - - Oxygen Saturation 98% 08/28/2020 2:45 PM ON AIR PERSONALITY Inhaled Oxygen Concentration - - Weight 83.6 kg (184 lb 4.9 oz) 08/28/2020 2:45 PM ON AIR PERSONALITY Height 176 cm (5' 9.29) 08/28/2020 2:45 PM ON AIR PERSONALITY Body Mass Index 26.99 08/28/2020 2:45 PM ON AIR PERSONALITY documented in this encounter H&P Notes Connie Aaron M.B.B.SDemetrius - 08/28/2020 3:00 PM CST SUBJECTIVE Referring Provider: Avril Bright M.D. [address] [place] [phone] CHIEF COMPLAINT / REASON FOR VISIT Bruce Singh is a 64 y.o. male who presents for evaluation of Cough HISTORY OF PRESENT ILLNESS Mr. 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 He presents to the pulmonary clinic for evaluation of chronic cough. Cough noted since August 2019 and has been previously evaluated by Dr. Simon with workup significantfor left lower lobe tree-in-bud opacities with diffuse bronchial wall thickening and endobronchial plugging in middle and lower lobes on CT in November 2019 with progression in December. Underwent lyqxiapqwnjt43/24 significant for bilateral scattered mucopurulent secretions with negative ICH studies, negative COVID testing for fungal culture using penicillium Prior trial of albuterol and short prednisone taper, antibiotics (levofloxacin in November, Augmentin inJuly) did not help with cough. ENT consultation for chronic rhinosinusitis with initiation of nasal rinses, xylitol , Atrovent, Budesonide was initially helpful but unfortunately he developed nasal sores and so stopped the budesonide. He is currently on Singulair. A trial of PPI was unhelpful althoughwas for 2 weeks. Swallow study also unrevealing for workup for aspiration. Cough is currently productive, initially was milky but intermittently greenish. Cough, congestion and post nasal drip are significantly worse at night. He denies fever chills and night sweats. Diagnostic review: Chest x-ray 11/22/19: New infiltrate and consolidation with bronchial wall thickening CT scan 01/31/20: new area of dense consolidation in the anterior and medial right lower lung, however improvement in left lower lobe consolidation and tree-in-bud micronodules. Bilateral bronchial wall thickening and endobronchial plugging. PFT of 08/28/20: Moderate obstruction with hyperinflation, FEV1 61% and reduced DLCO, significant decline since 2012. Normal oximetry at rest and exercise Exhaled nitric oxide 08/28/20: 21 CBC: WBC 3.0, eosinophils 0.05 Sputum culture 02/01/20: Serratia Marcescens REVIEW OF SYSTEMS ENT: Positive for sinus congestion. Respiratory: Positive for coughing up mucus (phlegm). Cardiovascular: Positive for swelling in the legs or feet. Hematologic: Positive for bruises or bleeds easily. The following systems were negative: Constitutional, Skin, Eyes, GI, , Musculoskeletal, Neuro, Psych OBJECTIVE PHYSICAL EXAM Constitutional Appearance: He is normal weight. Cardiovascular Rate and Rhythm: Normal rate and regular rhythm. Pulses: Normal pulses. Heart sounds: Normal heart sounds. Pulmonary Effort: Pulmonary effort is normal. No respiratory distress. Breath sounds: No wheezing. Comments: Bilateral inspiratory crackles Abdominal General: There is no distension. Palpations: Abdomen is soft. Tenderness: There is no abdominal tenderness. Musculoskeletal Right lower leg: No edema. Left lower leg: No edema. Neurological General: No focal deficit present. Mental Status: He is alert and oriented to person, place, and time. ASSESSMENT / PLAN #1 Cough #2 Chronic rhinosinusitis #3 Postnasal drip #4 Obstructive impairment on pulmonary function test #5 Bilateral infiltrates with bronchial wall thickening on imaging #6 Normal esophagram 08/28/20 #4 Autoimmune hepatitis status post orthotopic liver transplant in 1998 and 2013 #5 Chronic immunosuppression with prednisone, tacrolimus and CellCept Had a nice discussion with Mr Singh and revealed results of pulmonary function test and imaging available. His cough continues in the last 1 year despite a trial of antibiotics, steroids and nasal rinses. Unfortunately developed nasal ulcers with budesonide therefore stop therapy although with noted mild improvement. His symptoms are significantly worse at night with nasal congestion, postnasal drip and cough likely due to uncontrolled sinus disease. He is willing to consider other treatment options including sinus surgery if needed and thus will contact Dr. Pena. Will request a CT of the chest to evaluate recurrent bilateral infiltrates and will initiate pulmonary hygiene with twice daily albuterol and hypertonic saline followed by aerobic care to help with mucus clearance. Will repeat spirometry test to assess bronchodilator response of obstructive impairment. He is a never smoker with secondhand smoke exposure but without significant emphysema on CT scan. Will trial out long-acting bronchodilator after repeat spirometry Will repeat sputum culture considering changing phlegm Orders Placed This Encounter Procedures ??? E0570 DME Nebulizer with compressor; A7003 Administration set, with small volume nonfiltered pneumatic nebulizer, disposable; 2; 2 ??? DME Medical Justification: Nebulizer with compressor ??? DME Oscillatory positive expiratory pressure device; ??? DME Medical Justification ??? Gram Stain ??? Bacterial Culture, Aerobic + Susc, Resp ??? Fungal Smear ??? Fungal Culture, Routine ??? Acid Fast Smear For Mycobacterium ??? Mycobacterial Culture ??? CT Chest without IV Contrast ??? Immunoglobulins (IgG, IgA, and IgM) ??? Pulmonary - Nebulizer education (clinic) ??? Pulmonary Function Tests Will call with results I personally spent over half of a total 60 minutes in counseling and discussion with the patient andcoordination of care as described above. AIR PERSONALITY documented in this encounter Plan of Treatment Upcoming Encounters Date Type Specialty Care Team Description 04/24/2022 Appointment Laboratory Medicine Angélica Granger P.A.-C. [address] [place] [phone] 04/25/2022 Office Visit Otorhinolaryngology Dex Matta APRN, CDemetriusNDemetriusPDemetrius, M.S.N. [address] [place] [phone] 05/08/2022 Appointment Laboratory Medicine Angélica Granger P.A.-C. [address] [place] [phone] 05/08/2022 Clinical Admitting/Central Communication Scheduling 05/10/2022 Appointment Radiology Jeremie Rose M.D. [address] [place] [phone] 05/10/2022 Comprehensive Visit Orthopedic Surgery Warner Graves M.D. [address] [place] [phone] 05/22/2022 Appointment Laboratory Medicine Angélica Granger P.A.-C. [address] [place] [phone] 06/05/2022 Appointment Laboratory Medicine Angélica Granger P.A.-C. [address] [place] [phone] 06/19/2022 Appointment Laboratory Medicine Angélica Granger P.A.-C. [address] [place] [phone] 07/03/2022 Appointment Laboratory Medicine Angélica Granger P.A.-C. [address] [place] [phone] 07/17/2022 Appointment Laboratory Medicine Angélica Granger P.A.-C. [address] [place] [phone] 07/31/2022 Appointment Laboratory Medicine Angélica Granger P.A.-C. [address] [place] [phone] 08/14/2022 Appointment Laboratory Medicine Angélica Granger P.A.-C. [address] [place] [phone] 08/28/2022 Appointment Laboratory Medicine Angélica Granger P.A.-C. [address] [place] [phone] Scheduled Referrals Name Type Priority Associated Diagnoses Order S chedule Pulmonary - Outpatient Referral Routine Cough Expected : Nebulizer education 08/29/19 21 (clinic) (Approximate), Expires: 08/29/2023 documented as of this encounter Results CT Chest without IV Contrast (08/31/2020 3:07 PM ON AIR PERSONALITY) Anatomical Region Laterality Modality Chest, Thoracic RST LOS, Thoracic ARZ N/A Co mputed Tomography, Computed LOS, Thoracic FLA LOS Tomography Specimen (Source) Anatomical Collection Method Collection Time Re ceived Time Location / / Volume Laterality 08/31/2020 3:10 PM ON AIR PERSONALITY Impressions 08/31/2020 3:15 PM ON AIR PERSONALITY 1. Improved bibasilar consolidation compatible with infection or inflammation since 01/31/2020. 2. Persistent airway wall thickening, ar eas of mucus plugging and peribronchiolar nodularity also compatib le with inflammatory or infectious airway disease. Narrative 08/31/2020 3:15 PM ON AIR PERSONALITY EXAM: CT CHEST WITHOUT IV CONTRAST COMPARISON: [...] appears negative. Connie Barron IMG CT PROCEDURES Pulmonary Function Tests (08/31/2020 11:01 AM ON AIR PERSONALITY) Analysis Performed At Patho logist Time Signature VC MAX POST 3.79 L 08/31/2020 [facility] 3:11 PM ON AIR PERSONALITY SUITE PostFVC 3.79 L 08/31/2020 [facility] 3:11 PM ON AIR PERSONALITY SUITE PostFEV1 2.24 L 08/31/2020 [facility] 3:11 PM ON AIR PERSONALITY SUITE FEV1/FVC POST 59.15 % 08/31/2020 [facility] 3:[facility] PM ON AIR PERSONALITY SUITE FEF 25-75 % 1.00 L/s 08/31/2020 [facility] POST 3:11 PM ON AIR PERSONALITY SUITE PEF POST 7.23 L/s 08/31/2020 [facility] 3:11 PM ON AIR PERSONALITY SUITE FET POST 12.33 sec 08/31/2020 [facility] 3:11 PM ON AIR PERSONALITY SUITE VC MAX PRE 3.52 L 08/31/2020 [facility] 3:11 PM ON AIR PERSONALITY SUITE FVC 3.32 L 08/31/2020 [facility] 3:11 PM ON AIR PERSONALITY SUITE FEV1 2.05 L 08/31/2020 [facility] 3:11 PM ON AIR PERSONALITY SUITE FEV1/FVC 61.74 % 08/31/2020 [facility] 3:11 PM ON AIR PERSONALITY SUITE VZQ42-38% 1.13 L/s 08/31/2020 [facility] 3:11 PM ON AIR PERSONALITY SUITE PEF PRE 6.98 L/s 08/31/2020 [facility] 3:11 PM ON AIR PERSONALITY SUITE FET PRE 8.38 sec 08/31/2020 [facility] 3:11 PM ON AIR PERSONALITY SUITE SUBSTANCE POST Albuterol 08/31/2020 [facility] 3:11 PM ON AIR PERSONALITY SUITE DOSE POST 2 Puff 08/31/2020 [facility] 3:11 PM ON AIR PERSONALITY SUITE % PRED VC MAX 83 % % 08/31/2020 [facility] 3:11 PM ON AIR PERSONALITY SUITE FVC% 78 % % 08/31/2020 [facility] 3:11 PM ON AIR PERSONALITY SUITE FEV1% 63 % % 08/31/2020 [facility] 3:11 PM ON AIR PERSONALITY SUITE % PRED 80 % % 08/31/2020 [facility] FEV1/FVC 3:11 PM ON AIR PERSONALITY SUITE % PRED FEF 44 % % 08/31/2020 [facility] 25-75% 3:11 PM ON AIR PERSONALITY SUITE % PRED PEF 85 % % 08/31/2020 [facility] 3:11 PM ON AIR PERSONALITY SUITE PRED VC MAX 4.26 08/31/2020 [facility] 3:11 PM ON AIR PERSONALITY SUITE PRED FVC 4.26 08/31/2020 [facility] 3:11 PM ON AIR PERSONALITY SUITE PRED FEV 1 3.26 08/31/2020 [facility] 3:11 PM ON AIR PERSONALITY SUITE PRED FEV1/FVC 76.7 08/31/2020 [facility] 3:11 PM ON AIR PERSONALITY SUITE PRED FEF 2.59 08/31/2020 [facility] 25-75% 3:11 PM ON AIR PERSONALITY SUITE PRED PEF 8.2 08/31/2020 [facility] 3:11 PM ON AIR PERSONALITY SUITE Specimen (Source) Anatomical Collection Method Collection Time Re ceived Time Location / / Volume Laterality 08/31/2020 11:01 AM ON AIR PERSONALITY Narrative This result has an attachment that is no t available. Connie Barron PFT ORDERABLES Performing Organization Address City/State/ZIP Code Phon e Number [facility] [place] [address] (ABNORMAL) Immunoglobulins (IgG, IgA, and IgM) (08/28/2020 4:11 PM ON AIR PERSONALITY) Patholo gist Method Time Signature Immunoglobulin A 32 (L) 61 - 356 08/29/2020 [facility] (IgA), S mg/dL 7:42 AM ON AIR PERSONALITY Immunoglobulin M 56 37 - 286 08/29/2020 [facility] (IgM), S mg/dL 7:42 AM ON AIR PERSONALITY Immunoglobulin G 807 767 - 08/29/2020 [facility] (IgG), S 1590 7:42 AM ON AIR PERSONALITY mg/dL Specimen Anatomical Collection Method Collection Time Receive d Time (Source) Location / / Volume Laterality Blood (Blood, 08/28/2020 4:11 PM 08/30/19 6:06 Venous) ON AIR PERSONALITY AM ON AIR PERSONALITY Connie RocaSDemetrius LAB BLOOD ADD-ON Performing Organization Address City/State/ZIP Code Phon e Number [facility] [address] [place], [place] [address] [facility] [address] Laboratory Medicine and Pathology [address] [place] Mycobacterial Culture (08/28/2020 3:59 PM ON AIR PERSONALITY) [facility] Method Time Signature Mycobacterial No growth 10/10/2020 DTL Culture after 42 1:01 AM CDT days of incubation . Specimen Anatomical Collection Method Collection Time Receive d Time (Source) Location / / Volume Laterality Sputum (Sputum) 08/28/2020 3:59 PM 2020 5:01 ON AIR PERSONALITY PM ON AIR PERSONALITY Comment: Specimen Source Site: Sputum Connie RocaS. LAB MICROBIOLOGY - GENERAL ORDERABLES Performing Organization Address City/State/ZIP Code Phon e Number [facility] - [address] [place], [place] [address] [facility] [place] [address] [facility] [address] Acid Fast Smear For Mycobacterium (08/28/2020 3:59 PM ON AIR PERSONALITY) [facility] Method Time Signature Acid Fast Smear Negative. 08/28/2020 DTL For Mycobacterium 10:56 PM ON AIR PERSONALITY Specimen Anatomical Collection Method Collection Time Receive d Time (Source) Location / / Volume Laterality Sputum (Sputum) 08/28/2020 3:59 PM 2020 5:01 ON AIR PERSONALITY PM ON AIR PERSONALITY Comment: Specimen Source Site: Sputum Connie RocaSDemetrius LAB MICROBIOLOGY - GENERAL ORDERABLES Performing Organization Address City/State/ZIP Code Phon e Number [facility] - [address] [place], [place] [address] [facility] [place] [address] [facility] [address] (ABNORMAL) Fungal Culture, Routine (08/28/2020 3:59 PM ON AIR PERSONALITY) Patholo gist Method Time Signature Fungal PENICILLIUM sp 09/21/2020 DTL Culture, Few 12:32 PM CDT Routine (A) Comment: Susceptibility testing is not routinely recommended for this organism. Clinical correlation requ ired. Specimen Anatomical Collection Method Collection Time Receive d Time (Source) Location / / Volume Laterality Sputum (Sputum) 08/28/2020 3:59 PM 2020 5:01 ON AIR PERSONALITY PM ON AIR PERSONALITY Comment: Specimen Source Site: Sputum Connie CottrellB.S. LAB MICROBIOLOGY - GENERAL ORDERABLES Performing Organization Address City/[facility] Phon e Number [facility] - [address] Fungal Smear (08/28/2020 3:59 PM ON AIR PERSONALITY) athologist Signature Fungal Smear Negative. 08/28/2020 DTL 10:39 PM ON AIR PERSONALITY Specimen Anatomical Collection Method Collection Time Receive d Time (Source) Location / / Volume Laterality Sputum (Sputum) 08/28/2020 3:59 PM 2020 5:01 ON AIR PERSONALITY PM ON AIR PERSONALITY Comment: Specimen Source Site: Sputum Connie CottrellB.S. LAB MICROBIOLOGY - GENERAL ORDERABLES Performing Organization Address [facility] Phon e Number [facility] - [address] (ABNORMAL) Bacterial Culture, Aerobic + Susc, Resp (08/28/2020 3:59 PM ON AIR PERSONALITY) Patholo gist Method Time Signature Bacterial With usual 08/31/2020 DTL Culture, efrem (A) 12:07 PM ON AIR PERSONALITY Aerobic, Resp Bacterial SERRATIA MARCESCENS 08/31/2020 DTL Culture, 2+ 12:07 PM ON AIR PERSONALITY Aerobic, Resp (A) Comment: This organism may [...] Sputum (Sputum) 08/28/2020 3:59 PM 2020 5:01 ON AIR PERSONALITY PM ON AIR PERSONALITY Comment: Specimen Source Site: Sputum Organism Antibiotic [...] mc g/mL: Sulfamethoxazole DAVID (MCG/ML) Susceptible Connie Barron LAB MICROBIOLOGY - GENERAL ORDERABLES Performing Organization Address City/State/ZIP Code Phon e Number [facility] [address] [place], [place] [address] [place] [address] [address] Gram Stain (08/28/2020 3:59 PM ON AIR PERSONALITY) [facility] gist Method Time Signature Gram Stain Mixed efrem. 08/28/2020 DTL White blood cells, Many. 6:24 PM ON AIR PERSONALITY Epithelial cells, Moderate. Specimen Anatomical Collection Method Collection Time Receive d Time (Source) Location / / Volume Laterality Sputum (Sputum) 08/28/2020 3:59 PM 2020 5:01 ON AIR PERSONALITY PM ON AIR PERSONALITY Comment: Specimen Source Site: Sputum Connie Barron LAB MICROBIOLOGY - GENERAL ORDERABLES Performing Organization Address City/State/[facility] Code Phon e Number [id number] [place] [address] documented in this encounter Visit Diagnoses Diagnosis Cough Unspecified Type Pneumonia Pneumonia documented in this encounter Additional Health Concerns Assessment Noted Time PHQ-9 Depression Total Score: 3 11/22/2019 7:34 AM CDT documented as of this encounter Care Teams Professor Of Sport Management Relationship Specialty Start Date End Date Elsewhere, Pcp PCP - General Family Medicine 07/29/17 [facility] - Laboratory Medicine 04/12/20 [place] [phone] documented as of this encounter
--- OUTSIDE RECORDS SUMMARY | 2022-04-13 12:23 | XMS_ITS | Encounter Summary ---
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 [address] [place] [phone] 05/08/2022 Appointment Laboratory Medicine Angélica Granger P.A.-CDemetrius [address] [place] [phone] 05/08/2022 Clinical Admitting/Central Communication Scheduling 05/10/2022 Appointment Radiology Jeremie Rose M.D. [address] [place] [phone] 05/10/2022 Comprehensive Visit Orthopedic Surgery Warner Graves M.D. [address] [place] [phone] 05/22/2022 Appointment Laboratory Medicine Angélica Granger P.A.-CDemetrius [address] [place] [phone] 06/05/2022 Appointment Laboratory Medicine Angélica Granger P.A.-C. [address] [place] [phone] 06/19/2022 Appointment Laboratory Medicine Angélica Granger P.A.-C. [address] [place] [phone] 07/03/2022 Appointment Laboratory Medicine Angélica Granger P.A.-C. [address] [place] [phone] 07/17/2022 Appointment Laboratory Medicine Angélica Granger P.A.-C. [address] [place] [phone] 07/31/2022 Appointment Laboratory Medicine Angélica Granger P.A.-C. [address] [place] [phone] 08/14/2022 Appointment Laboratory Medicine Angélica Granger P.A.-C. [address] [place] [phone] 08/28/2022 Appointment Laboratory Medicine Angélica Granger P.A.-C. [address] [place] [phone] documented as of this encounter Visit Diagnoses Not on filedocumented in this encounter Additional Health Concerns Assessment Noted Time PHQ-9 Depression Total Score: 3 11/22/2019 7:34 AM CDT documented as of this encounter Care Teams Busperson Relationship Specialty Start Date End Date Elsewhere, Pcp PCP - General Family Medicine 07/29/17 [facility] - Laboratory Medicine 04/12/[address] [address] documented as of this encounter
--- OUTSIDE RECORDS SUMMARY | 2022-04-13 12:23 | XMS_ITS | Encounter Summary ---
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 loratadine (CLARITIN) 10 Take 10 mg by mouth 0 mg tablet at bedtime. montelukast (SINGULAIR) Take 10 mg by mouth 0 10 mg tablet at bedtime. amoxicillin (AMOXIL) 500 Take 4 capsules by 0 09/2017 mg capsule mouth as directed. Prior to dental procedures atorvastatin (LIPITOR) Take 1 tablet (10 90 tablet 3 201903/05/2021 10 mg tablet mg total) by mouth daily. budesonide (Pulmicort) Mix [...] and 400 IU of vitamin D cholecalciferol (VITAMIN Take 1 tablet by 0 09/0311/13/2020 D3) 2,000 Unit tablet mouth daily. doxazosin (CARDURA) 4 mg Take 1 tablet (4 mg 90 tablet 3 03/05/2021 tabletIndications: total) by mouth Hypertension Essential daily. [...] 06/18/2013 10/12/2021 mouth daily. Maintenance NIFEdipine XL (PROCARDIA Take 3 tablets (90 270 tablet 3 07/05/2021 XL) 30 mg 24 hr tablet mg total) by mouth daily. predniSONE (DELTASONE) 5 Take 1 tablet (5 mg 90 tablet 3 06/29/2021 mg tabletIndications: total) by mouth Transplant Liver ([facility]), daily. Medication Therapy Immigration Lawyer Not Anticoagulant tacrolimus (PROGRAF) 0.5 Take 2 capsules (1 [...] of nose twice daily as directed. cholecalciferol (VITAMIN Take 1 capsule by 0 02/2105/24/2021 D3) 50 mcg (2,000 Unit) mouth daily. capsule lamoTRIgine (LaMICtal) TAKE 1 TABLET BY 200 tablet 3 03/04/2410/03/2020 200 mg tablet MOUTH TWICE DAILY mycophenolate (CELLCEPT) TAKE 1 TABLET BY 180 tablet 3 11/2111/06/2020 500 mg MOUTH TWICE DAILY tabletIndications: Transplant Liver (HCC) traZODone (DESYREL) 100 Take 1 tablet by 0 201610/12/2020 mg tablet mouth at bedtime as needed for sleep. Maintenance documented as 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 [address] [place] [phone] 04/25/2022 Office Visit Otorhinolaryngology Dex Matta APRN, C.N.P., M.S.N. [address] [place] [phone] 05/08/2022 Appointment Laboratory Medicine Angélica Granger P.A.-CDemetrius [address] [place] [phone] 05/08/2022 Clinical Admitting/Central Communication Scheduling 05/10/2022 Appointment Radiology Jeremie Rose M.D. [address] [place] [phone] 05/10/2022 Comprehensive Visit Orthopedic Surgery Warner Graves M.D. [address] [place] [phone] 05/22/2022 Appointment Laboratory Medicine Angélica Granger P.A.-C. [address] [place] [phone] 06/05/2022 Appointment Laboratory Medicine Angélica Granger P.A.-C. [address] [place] [phone] 06/19/2022 Appointment Laboratory Medicine Angélica Granger P.A.-C. [address] [place] [phone] 07/03/2022 Appointment Laboratory Medicine Angélica Granger P.A.-C. [address] [place] [phone] 07/17/2022 Appointment Laboratory Medicine Angélica Granger P.A.-C. [address] [place] [phone] 07/31/2022 Appointment Laboratory Medicine Angélica Granger P.A.-C. [address] [place] [phone] 08/14/2022 Appointment Laboratory Medicine Angélica Granger P.A.-C. [address] [place] [phone] 08/28/2022 Appointment Laboratory Medicine Angélica Granger P.A.-C. [address] [place] [phone] documented as of this encounter Procedures Procedure Name Priority Date/Time Associated Comments Diagnosis IMMUNOFIXATION Routine 08/28/2020 9:51 AM Results for this CONCRETE PANEL INSTALLER procedure are i n the results section. CBC WITH DIFFERENTIAL, Routine 08/28/2020 9:51 AM Cough Results for this B CONCRETE PANEL INSTALLER procedure are i n the results section. ELECTROPHORESIS, Routine 08/28/2020 9:51 AM Resul ts for this PROTEIN, S CONCRETE PANEL INSTALLER procedure are i n the results section. BASIC METABOLIC PANEL, Routine 08/28/2020 9:51 AM Cough Results for this S/P CONCRETE PANEL INSTALLER procedure are i n the results section. documented in this encounter Results (ABNORMAL) Electrophoresis, Protein (08/28/2020 9:51 AM CONCRETE PANEL INSTALLER) [facility] Method Time Signature Total Protein, 5.6 (L) 6.3 - 7.9 12/27/2020 [facility] S g/dL 10:27 AM CDT Albumin 3.1 (L) 3.4 - 4.7 12/27/2020 [facility] g/dL 5:50 PM CDT Alpha-1 0.3 0.1 - 0.3 12/27/2020 [facility] Globulin g/dL 5:50 PM CDT Alpha-2 0.7 0.6 - 1.0 12/27/2020 [facility] Globulin g/dL 5:50 PM CDT Beta-Globulin 0.7 0.7 - 1.2 12/27/2020 [facility] g/dL 5:50 PM CDT Gamma-Globulin 0.8 0.6 - 1.6 12/27/2020 [facility] g/dL 5:50 PM CDT A/G Ratio 1.26 12/27/2020 [facility] 5:50 PM CDT Impression No apparent monoclonal protein on serum electrophoresi s. 12/27/2020 [facility] 5:50 PM CDT See Immunofixation. Specimen Anatomical Collection Method Collection Time Receive d Time (Source) Location / / Volume Laterality Blood 08/28/2020 9:51 AM 8:11 CONCRETE PANEL INSTALLER AM CDT Otoniel Davis M.D. LAB BLOOD ADD-ON Performing Organization Address City/State/ZIP Code Phon e Number [facility] [address] [place] [address] [address] [facility] [place] [address] Laboratory Medicine and Pathology [address] [place] [address] Dr. [place]O Immunofixation (08/28/2020 9:51 AM CONCRETE PANEL INSTALLER) [facility] Method Time Signature Immunofixation No monoclonal 12/28/2020 [facility] protein 5:56 PM CDT detected. Specimen Anatomical Collection Method Collection Time Receive d Time (Source) Location / / Volume Laterality Blood 08/28/2020 9:51 AM 8:11 CONCRETE PANEL INSTALLER AM CDT Otoniel Davis M.D. LAB BLOOD NON ADD-ON Performing Organization Address City/State/ZIP Code Phon e Number [facility] [address] [place], [place] [address] [address] [facility] [place] [address] Laboratory Medicine and Pathology [address] [place] (ABNORMAL) Basic Metabolic Panel (08/28/2020 9:51 AM CONCRETE PANEL INSTALLER) Analysis Performed At Patho logist Time Signature Potassium, S 4.1 3.6 - 5.2 08/28/2020 DTL mmol/L 11:00 AM CONCRETE PANEL INSTALLER Sodium, S 137 135 - 145 08/28/2020 DTL mmol/L 11:00 AM CONCRETE PANEL INSTALLER Chloride, S 100 98 - 107 08/28/2020 DTL mmol/L 11:00 AM CONCRETE PANEL INSTALLER Bicarbonate, S 24 22 - 29 08/28/2020 DTL mmol/L 11:03 AM CONCRETE PANEL INSTALLER Anion Gap 13 7 - 15 08/28/2020 DTL 11:03 AM CONCRETE PANEL INSTALLER BUN (Blood Urea 57 (H) 8 - 24 08/28/2020 DTL Nitrogen), S mg/dL 11:00 AM CONCRETE PANEL INSTALLER Creatinine 3.67 (H) 0.74 - 08/28/2020 DTL 1.35 mg/dL 11:00 AM CONCRETE PANEL INSTALLER eGFR-Non 16 (L) >=60 08/28/2020 DTL Black/ mL/min/BSA 11:00 AM CONCRETE PANEL INSTALLER [place] Comment: ----ADDITIONAL INFORMATION---- Estimated GFR calculated using the 2009 CKD_EPI creatinine equation. eGFR-Black/ 19 (L) >=60 mL/min/BSA 2020 11:00 AM CONCRETE PANEL INSTALLER DTL Comment: ----ADDITIONAL INFORMATION---- Estimated GFR calculated using the 2009 CKD_EPI creatinine equation. Calcium, Total, S 8.5 (L) 8.8 - 10.2 mg/dL 08/28/2020 11:0 0 AM CONCRETE PANEL INSTALLER DTL Glucose, S 180 (H) 70 - 140 mg/dL 08/28/2020 11:00 AM CONCRETE PANEL INSTALLER DTL Specimen Anatomical Collection Method Collection Time Receive d Time (Source) Location / / Volume Laterality Blood (Blood, 08/28/2020 9:51 AM 08/29/19 21 Venous) CONCRETE PANEL INSTALLER 10:17 AM CONCRETE PANEL INSTALLER Avril Bright M.D. LAB BLOOD ADD-ON Performing Organization Address City/State/ZIP Code Phon e Number [facility] - 200 [place], [place] [address] [facility] [place] [address] [facility] 200 [facility] (ABNORMAL) CBC with Differential, Blood (08/28/2020 9:51 AM CONCRETE PANEL INSTALLER) [facility] Method Time Signature Hemoglobin 9.6 (L) 13.2 - 08/28/2020 DTL 16.6 g/dL 10:42 AM CONCRETE PANEL INSTALLER Hematocrit 29.6 (L) 38.3 - 08/28/2020 DTL 48.6 % 10:42 AM CONCRETE PANEL INSTALLER Erythrocytes 3.12 (L) 4.35 - 08/28/2020 DTL 5.65 10:42 AM CONCRETE PANEL INSTALLER x10(12)/L MCV 94.9 78.2 - 08/28/2020 DTL 97.9 fL 10:42 AM CONCRETE PANEL INSTALLER RBC Distrib Width 13.0 11.8 - 08/28/2020 DTL 14.5 % 10:42 AM CONCRETE PANEL INSTALLER Platelet Count 176 135 - 317 08/28/2020 DTL x10(9)/L 10:42 AM CONCRETE PANEL INSTALLER Leukocytes 3.0 (L) 3.4 - 9.6 08/28/2020 DTL x10(9)/L 10:42 AM CONCRETE PANEL INSTALLER Neutrophils 2.16 1.56 - 08/28/2020 DTL 6.45 10:42 AM CONCRETE PANEL INSTALLER x10(9)/L Lymphocytes 0.39 (L) 0.95 - 08/28/2020 DTL 3.07 10:42 AM CONCRETE PANEL INSTALLER x10(9)/L Monocytes 0.37 0.26 - 08/28/2020 DTL 0.81 10:42 AM CONCRETE PANEL INSTALLER x10(9)/L Eosinophils 0.05 0.03 - 08/28/2020 DTL 0.48 10:42 AM CONCRETE PANEL INSTALLER x10(9)/L Basophils <0.03 0.01 - 08/28/2020 DTL 0.08 10:42 AM CONCRETE PANEL INSTALLER x10(9)/L Specimen Anatomical Collection Method Collection Time Receive d Time (Source) Location / / Volume Laterality Blood (Blood, 08/28/2020 9:51 AM 08/29/19 21 Venous) CONCRETE PANEL INSTALLER 10:21 AM CONCRETE PANEL INSTALLER Avril Bright M.D. LAB BLOOD ADD-ON Performing Organization Address City/State/ZIP Code Phon e Number [facility] - [address] [place] [address] [facility] [place] [address] [facility] [address] documented in this encounter Visit Diagnoses Diagnosis Cough Unspecified Type documented in this encounter Additional Health Concerns Assessment Noted Time PHQ-9 Depression Total Score: 3 11/22/2019 7:34 AM CDT documented as of this encounter Care Teams Internal Medicine Doctor Relationship Specialty Start Date End Date Elsewhere, Pcp PCP - General Family Medicine 07/29/17 [facility] - Laboratory Medicine 04/12/20 [place] [phone] documented as of this encounter
--- OUTSIDE RECORDS SUMMARY | 2022-04-13 12:23 | XMS_ITS | Encounter Summary ---
:1955 Author Organization [facility] Address [address] [place] [address] Care Team Providers Name Role Phone Elsewhere, Pcp Primary Care Provider Unavailable Encounter Details Date Type Department Care Team Description 08/28/2020 Diagnostic Division of Pulmonary KailaMasha whitman M.D. 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 [address] [place] [phone] 04/25/2022 Office Visit Otorhinolaryngology Dex Matta, RAMONA, C.N.P., M.S.N. [address] [place] [phone] 05/08/2022 Appointment Laboratory Medicine Angélica Granger P.A.-CDemetrius [address] [place] [phone] 05/08/2022 Clinical Admitting/Central Communication Scheduling 05/10/2022 Appointment Radiology Jeremie Rose M.D. [address] [place] [phone] 05/10/2022 Comprehensive Visit Orthopedic Surgery Warner Graves M.D. [address] [place] [phone] 05/22/2022 Appointment Laboratory Medicine Angélica Granger P.A.-CDemetrius [address] [place] [phone] 06/05/2022 Appointment Laboratory Medicine Angélica Granger P.A.-C. [address] [place] [phone] 06/19/2022 Appointment Laboratory Medicine Angélica Granger P.A.-C. [address] [place] [phone] 07/03/2022 Appointment Laboratory Medicine Angélica Granger P.A.-C. [address] [place] [phone] 07/17/2022 Appointment Laboratory Medicine Angélica Granger P.A.-C. [address] [place] [phone] 07/31/2022 Appointment Laboratory Medicine Angélica Granger P.A.-C. [address] [place] [phone] 08/14/2022 Appointment Laboratory Medicine Angélica Granger P.A.-C. [address] [place] [phone] 08/28/2022 Appointment Laboratory Medicine Angélica Granger P.A.-C. [address] [place] [phone] documented as of this encounter Procedures Procedure Name Priority Date/Time Associated Diagnosis Comme nts EXHALED NITRIC Routine 08/28/2020 11:26 AM Cough Result s for this OXIDE CUSTOMER ASSISTANCE REPRESENTATIVE procedure are i n the results section. documented in this encounter Results Exhaled Nitric Oxide - Pulmonology (08/28/2020 11:26 AM CUSTOMER ASSISTANCE REPRESENTATIVE) Patholo gist Method Time Signature Exhaled NO 21 MMODAL Oral Parts per 39 MMODAL billion (ULN) ENOComment Patient MMODAL currently takes: Pulmicort, Atrovent, Singulair, and Prednisone Specimen (Source) Anatomical Location Collection Method / Collectio n Time Received Time / Laterality Volume Avril Bright M.D. PFT ORDERABLES Performing Organization Address City/State/ZIP Code Phon e Number MMODAL MMODAL NA documented in this encounter Visit Diagnoses Diagnosis Cough Unspecified Type documented in this encounter Additional Health Concerns Assessment Noted Time PHQ-9 Depression Total Score: 3 11/22/2019 7:34 AM CDT documented as of this encounter Care Teams Toll Mechanic Relationship Specialty Start Date End Date Elsewhere, Pcp PCP - General Family Medicine 07/29/[address] [facility] - Laboratory Medicine 04/12/20 [place] [phone] documented as of this encounter
--- OUTSIDE RECORDS SUMMARY | 2022-04-13 12:23 | XMS_ITS | Encounter Summary ---
:1955 Author Organization [facility] Address [address] [place] [address] Care Team Providers Name Role Phone Elsewhere, Pcp Primary Care Provider Unavailable Encounter Details Date Type Department Care Team Description 07/04/2020 Documentation Division of Nephrology and [place], Hypertension in [place], Kavya house M.D. 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 - 07/04/2020 1:44 PM CST I reviewed his nurse visit and blood test. His blood pressure is controlled. Continue current blood pressure medication - nifedipine 90 mg daily, and torsemide 30 mg daily. He is also on doxazosin 4 mgdaily. Will hold adding ACEI/ARB as creatinine went up to 3.6. A trial of PPI for postnasal drip is ok but would suggest to discontinue if this does not work. Long-term PPI might be related with CKD progression. ORATION MANAGER documented in this encounter Plan of Treatment Upcoming Encounters Date Type Specialty Care Team Description 04/24/2022 Appointment Laboratory Medicine Angélica Granger P.A.-C. [address] [place] [phone] 04/25/2022 Office Visit Otorhinolaryngology Dex Matta APRN, C.N.P., M.S.N. [address] [place] [phone] 05/08/2022 Appointment Laboratory Medicine Angélica Granger P.A.-C. [address] [place] [phone] 05/08/2022 Clinical Admitting/Central Communication Scheduling 05/10/2022 Appointment Radiology Jeremie Rose M.D. [address] [place] [phone] 05/10/2022 Comprehensive Visit Orthopedic Surgery Warner Graves M.D. [address] [place] [phone] 05/22/2022 Appointment Laboratory Medicine Angélica Granger P.A.-C. [address] [place] [phone] 06/05/2022 Appointment Laboratory Medicine Angélica Granger P.A.-C. [address] [place] [phone] 06/19/2022 Appointment Laboratory Medicine Angélica Granger P.A.-C. [address] [place] [phone] 07/03/2022 Appointment Laboratory Medicine Angélica Granger P.A.-C. [address] [place] [phone] 07/17/2022 Appointment Laboratory Medicine Angélica Granger P.A.-C. [address] [place] [phone] 07/31/2022 Appointment Laboratory Medicine Angélica Granger P.A.-C. [address] [place] [phone] 08/14/2022 Appointment Laboratory Medicine Angélica Granger P.A.-C. [address] [place] [phone] 08/28/2022 Appointment Laboratory Medicine Angélica Granger P.A.-C. [address] [place] [phone] documented as of this encounter Visit Diagnoses Not on filedocumented in this encounter Additional Health Concerns Assessment Noted Time PHQ-9 Depression Total Score: 3 11/22/2019 7:34 AM CDT documented as of this encounter Care Teams Supervisor Drapery Hanging Relationship Specialty Start Date End Date Elsewhere, Pcp PCP - General Family Medicine 07/29/17 [facility] [place] - Laboratory Medicine 04/12/20 [place] [phone] documented as of this encounter
--- OUTSIDE RECORDS SUMMARY | 2022-04-13 12:23 | XMS_ITS | Encounter Summary ---
:1955 Author Organization [facility] Address [address] [place] [address] Care Team Providers Name Role Phone Elsewhere, Pcp Primary Care Provider Unavailable Encounter Details Date Type Department Care Team Description 06/29/2020 Hospital Encounter Department of [facility], [facility] Laboratory Medicine Sada Hobson Chronic Kidney in [address] Disease Stage 4 (HCC) [place], [place] [address] [facility] [address] [place], [place] [phone] [address] (Work) [phone] Social History Tobacco Use Types Packs/Day Years [...] at Date Recorded 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 calcium carb/magnesium Take 2 tablets by [...] hr tablet mg total) by mouth daily. torsemide (DEMADEX) 10 Take 3 tablets (30 270 tablet 3 05/2202/22/2021 mg tablet mg total) by mouth daily. cholecalciferol (VITAMIN Take 1 capsule by 0 02/2105/24/2021 D3) 50 mcg (2,000 Unit) mouth daily. capsule lamoTRIgine (LaMICtal) TAKE 1 TABLET BY 200 tablet 3 020 10/03/2020 200 mg tablet MOUTH TWICE DAILY mycophenolate (CELLCEPT) TAKE 1 TABLET BY 180 tablet 3 11/2111/06/2020 500 mg MOUTH TWICE DAILY tabletIndications: Transplant Liver (HCC) predniSONE (DELTASONE) 5 Take 1 tablet (5 mg 90 tablet 3 07/20/2020 mg tabletIndications: total) by mouth Transplant Liver ([facility]), daily. Medication Therapy Bi Specialist Not Anticoagulant tacrolimus (PROGRAF) 0.5 Take 2 capsules (1 360 capsule 3 07/20/2020 mg capsuleIndications: mg total) by mouth Transplant Liver ([facility]), 2 (two) times a Medication Therapy Long day. Term Not Anticoagulant traZODone (DESYREL) 100 Take 1 tablet by 0 201610/12/2020 mg tablet mouth at bedtime as needed for sleep. Maintenance documented as 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 [address] [place] [phone] 04/25/2022 Office Visit Otorhinolaryngology Dex Matta APRN C.N.P., M.S.N. [address] [place] [phone] 05/08/2022 Appointment Laboratory Medicine Angélica Granger P.A.-C. [address] [place] [address] [phone] 05/08/2022 Clinical Admitting/Central Communication Scheduling 05/10/2022 Appointment Radiology Jeremie Rose M.D. [address] [place] [phone] 05/10/2022 Comprehensive Visit Orthopedic Surgery Warner Graves M.D. [address] [place] [address] [phone] 05/22/2022 Appointment Laboratory Medicine Angélica Granger P.A.-C. [address] [place] [phone] 06/05/2022 Appointment Laboratory Medicine Angélica Granger P.A.-C. [address] [place] [phone] 06/19/2022 Appointment Laboratory Medicine Angélica Granger P.A.-C. [address] [place] [phone] 07/03/2022 Appointment Laboratory Medicine Angélica Granger P.A.-C. [address] [place] [phone] 07/17/2022 Appointment Laboratory Medicine Angélica Granger P.A.-C. [address] [place] [phone] 07/31/2022 Appointment Laboratory Medicine Angélica Granger P.A.-C. [address] [place] [phone] 08/14/2022 Appointment Laboratory Medicine Angélica Granger P.A.-C. [address] [place] [phone] 08/28/2022 Appointment Laboratory Medicine Angélica Granger P.A.-C. [address] [place] [phone] documented as of this encounter Procedures Procedure Name Priority Date/Time Associated Diagnosis Comme nts ALBUMIN, RANDOM, U Routine 06/29/2020 8:34 AM Hypertension And Results for this CANAL DRIVER Chronic Kidney procedure are in Disease Stage 4 (HCC) the re sults section. URINALYSIS WITH Routine 06/29/2020 8:34 AM Hypertension And Re sults for this MICROSCOPIC CANAL DRIVER Chronic Kidney procedure are in Disease Stage 4 (HCC) the re sults section. documented in this encounter Results (ABNORMAL) Albumin, Random, Urine (06/29/2020 8:34 AM CANAL DRIVER) [facility] Method Time Signature Microalbumin 834.0 mg/L 06/29/2020 OWAT 11:35 AM CANAL DRIVER Creatinine 68 mg/dL 06/29/2020 OWAT 11:14 AM CANAL DRIVER Albumin/Creatinin 1226 (H) <17 mg/g 06/29/2020 OWAT e Ratio 11:35 AM CANAL DRIVER Specimen Anatomical Collection Method Collection Time Receive d Time (Source) Location / / Volume Laterality Urine (Urine, 06/29/2020 8:34 AM 06/29/19 21 Voided) CANAL DRIVER 10:20 AM CANAL DRIVER Joce Bailey M.D. LAB URINE ORDERABLES Performing Organization Address City/State/ZIP Code Phon e Number [facility] [address] [place] [address] [facility] [place] [facility] [address] System in [place] [address] (ABNORMAL) Urinalysis with Microscopic: Urine, Voided (06/29/2020 8:34 AM CANAL DRIVER) P athologist Signature Source Midstream 06/29/2020 FB60 9:15 AM CANAL DRIVER Clarity Clear Clear 06/29/2020 FB60 9:15 AM CANAL DRIVER Color Yellow 06/29/2020 FB60 9:15 AM CANAL DRIVER Comment: ----REFERENCE VALUE---- Colorless Yellow Bhakti Blood Small (A) Negative 06/29/2020 9:15 AM CANAL DRIVER FB60 Nitrite Negative Negative 06/29/2020 9:15 AM CANAL DRIVER FB60 Leukocyte Esterase Negative Negative 06/29/2020 9:15 AM CS T FB60 Protein >=300 (A) mg/dL 06/29/2020 9:15 AM CANAL DRIVER FB60 Comment: ----REFERENCE VALUE---- Negative Trace Glucose Negative Negative mg/dL 06/29/2020 9:15 AM CANAL DRIVER FB 60 Ketones, QI(U) Negative Negative mg/dL 06/29/2020 9:[address] FB60 Bilirubin Negative Negative 06/29/2020 9:15 AM CANAL DRIVER FB60 pH 7.0 5.0 - 8.0 06/29/2020 9:15 AM CANAL DRIVER FB60 Specific [place] 1.015 1.001 - 1.035 06/29/2020 9:15 AM CANAL DRIVER FB60 Urobilinogen 0.2 0.2 - 1.0 mg/dL 06/29/2020 9:15 AM CS T FB60 White Blood Cells None Seen /hpf 06/29/2020 9:18 AM CANAL DRIVER FB60 Comment: ----REFERENCE VALUE---- Males: 0-3 Females: 0-10 Unknown: 0-10 Red Blood Cells Occ-2 0 - 2 /hpf 06/29/2020 9:18 AM CANAL DRIVER FB60 Dysmorphic Red Blood Cells <=25 <=25 % 06/29/2020 9: 18 AM CANAL DRIVER FB60 Specimen Anatomical Collection Method Collection Time Receive d Time (Source) Location / / Volume Laterality Urine (Urine, 06/29/2020 8:34 AM 06/29/19 8:51 Voided) CANAL DRIVER AM CANAL DRIVER Joce Bailey M.D. LAB URINE ORDERABLES Performing Organization Address City/State/ZIP Code Phon e Number [address] LAB FB60 [place] [address] [address] documented in this encounter Visit Diagnoses Diagnosis Hypertension And Chronic Kidney Disease Stage 4 (HCC) documented in this encounter Additional Health Concerns Assessment Noted Time PHQ-9 Depression Total Score: 3 11/22/2019 7:34 AM CDT documented as of this encounter Care Teams Mechanical Engineering Director Relationship Specialty Start Date End Date Elsewhere, Pcp PCP - General Family Medicine 07/29/17 [facility] - Laboratory Medicine 04/12/[address] [address] documented as of this encounter
--- OUTSIDE RECORDS SUMMARY | 2022-04-13 12:23 | XMS_ITS | Encounter Summary ---
:1955 Author Organization [facility] Address [address] [place] [address] Care Team Providers Name Role Phone Elsewhere, Pcp Primary Care Provider Unavailable Encounter Details Date Type Department Care Team Description 08/28/2020 Hospital Encounter Department of Radiology, [facility] [place], [place] [address] 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 Medication Therapy Anesthesiologist Not Anticoagulant tacrolimus (PROGRAF) Take 2 capsules (1 360 capsule 3 202007/16/2021 0.5 mg mg total) by mouth 2 capsuleIndications: (two) times a day. Transplant Liver (HCC), Medication Therapy Anesthesiologist Not Anticoagulant torsemide (DEMADEX) 10 Take 3 [...] Laboratory Medicine Angélica Granger P.A.-CDemetrius [address] [place] [phone] 04/25/2022 Office Visit Otorhinolaryngology Dex Matta APRN, C.N.P., M.S.N. [address] [place] [phone] 05/08/2022 Appointment Laboratory Medicine Angélica Granger P.A.-C. [address] [place] [phone] 05/08/2022 Clinical Admitting/Central Communication Scheduling 05/10/2022 Appointment Radiology Jeremie Rose M.D. [address] [place] [phone] 05/10/2022 Comprehensive Visit Orthopedic Surgery Warner Graves M.D. [address] [place] [phone] 05/22/2022 Appointment Laboratory Medicine Angélica Granger P.A.-C. [address] [place] [phone] 06/05/2022 Appointment Laboratory Medicine Angélica Granger P.A.-C. [address] [place] [phone] 06/19/2022 Appointment Laboratory Medicine Angélica Granger P.A.-C. [address] [place] [phone] 07/03/2022 Appointment Laboratory Medicine Angélica Granger P.A.-C. [address] [place] [phone] 07/17/2022 Appointment Laboratory Medicine Angélica Granger P.A.-C. [address] [place] [phone] 07/31/2022 Appointment Laboratory Medicine Angélica Granger P.A.-C. [address] [place] [phone] 08/14/2022 Appointment Laboratory Medicine Angélica Granger P.A.-C. [address] [place] [phone] 08/28/2022 Appointment Laboratory Medicine Angélica Granger P.A.-C. [address] [place] [phone] documented as of this encounter Procedures Procedure Name Priority Date/Time Associated Comments Diagnosis DX CHEST AP OR PA RAD - Routine 08/28/2020 10:09 Cough Resul ts for this AND LATERAL 2 (most inpatients AM FABRICATING MACHINE OPERATOR procedure are in VIEWS and all the results outpatients) section. documented in this encounter Results DX Chest AP or PA and Lateral 2 Views (08/28/2020 10:09 AM FABRICATING MACHINE OPERATOR) Anatomical Region Laterality Modality Chest, Thoracic RST LOS, Thoracic ARZ LOS, Thoracic N/A Digital Radiography FLA LOS Specimen (Source) Anatomical Collection Method Collection Time Re ceived Time Location / / Volume Laterality 08/28/2020 10:12 AM FABRICATING MACHINE OPERATOR Impressions 08/28/2020 10:17 AM FABRICATING MACHINE OPERATOR Since 11/22/2019, new infiltrates and consolidation with bronchial wall thickening and peripheral dilatatio n in the lower lobe bases. A similar pattern was seen on the 01/31/[address] The right base consolidative opacity appears resolved since 0. Appearance is suggestive of the clinically suspected aspiration pneumoni tis. No other change since 11/22/2019. Slight anterior wedging of a midthoracic vertebral body. Mild aortic calcification. Probable PO change distal left clavicle. Narrative 08/28/2020 10:17 AM FABRICATING MACHINE OPERATOR EXAM: ??DX CHEST AP OR PA AND LATERAL 2 VIEWS Procedure Note Chelsy Cannon M.D. - 08/28/2020For matting of this note might be different from the original. EXAM: DX CHEST AP OR PA AND LATERAL 2 EWS IMPRESSION: Since 11/22/2019, new infiltrates and co nsolidation with bronchial wall thickening and peripheral dilatatio n in the lower lobe bases. A similar pattern was seen on the 01/31/[address] The right base consolidative opacity appears resolved since 0. Appearance is suggestive of the clinically suspected aspiration pneumoni tis. No other change since 11/22/2019. Slight anterior wedging of a midthoracic vertebral body. Mild aortic calcification. Probable PO change distal left clavicle. [facility]KE documented in this encounter Visit Diagnoses Diagnosis Cough Unspecified Type documented in this encounter Additional Health Concerns Assessment Noted Time PHQ-9 Depression Total Score: 3 11/22/2019 7:34 AM CDT documented as of this encounter Care Teams Dye Line Operator Relationship Specialty Start Date End Date Elsewhere, Pcp PCP - General Family Medicine 07/29/17 [facility] - Laboratory Medicine 04/12/20 [place] [address] documented as of this encounter
--- OUTSIDE RECORDS SUMMARY | 2022-04-13 12:23 | XMS_ITS | Encounter Summary ---
:1955 Author Organization [facility] Address [address] [place] [address] Care Team Providers Name Role Phone Elsewhere, Pcp Primary Care Provider Unavailable Reason for Referral Outpatient (Routine) - Closed Specialty Diagnoses / Procedures Referred By Contact Refer red To Contact Pulmonary Medicine Diagnoses Cough Unspecified Type Avril rBight M.D. [facility] [address] [place] [phone] Referral ID Status Reason Start Date Expiration Date Visits Requ ested Visits Authorized [id number] Closed 07/18/2020 07/18/2021 1 1 ECTOR AIR CARRIER Encounter Details Date Type Department Care Team Description 07/18/2020 Orders Only Department of Avril Bright (Primary Dx) Otorhinolaryngology samm Cardenas M.D. [address] [place] [phone] Social History Tobacco Use Types Packs/Day Years [...] 12/15/2021 organizations such as rastafari groups, unions, fraSunlot or athletic groups, or school groups? 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 [address] [place] [phone] 05/08/2022 Appointment Laboratory Medicine Angélica Granger P.A.-C. [address] [place] [phone] 05/08/2022 Clinical Admitting/Central Communication Scheduling 05/10/2022 Appointment Radiology Jeremie Rose M.D. [address] [place] [phone] 05/10/2022 Comprehensive Visit Orthopedic Surgery Warner Graves M.D. [address] [place] [phone] 05/22/2022 Appointment Laboratory Medicine Angélica Granger P.A.-C. [address] [place] [phone] 06/05/2022 Appointment Laboratory Medicine Angélica Granger P.A.-C. [address] [place] [phone] 06/19/2022 Appointment Laboratory Medicine Angélica Granger P.A.-C. [address] [place] [phone] 07/03/2022 Appointment Laboratory Medicine Angélica Granger P.A.-C. [address] [place] [phone] 07/17/2022 Appointment Laboratory Medicine Angélica Granger P.A.-C. [address] [place] [phone] 07/31/2022 Appointment Laboratory Medicine Angélica Granger P.A.-C. [address] [place] [phone] 08/14/2022 Appointment Laboratory Medicine Angélica Granger P.A.-C. [address] [place] [phone] 08/28/2022 Appointment Laboratory Medicine Angélica Granger P.A.-C. [address] [place] [phone] Scheduled Referrals Name Type Priority Associated Order Schedule Diagnoses Pulmonary Medicine Outpatient Referral Routine Cough 1 Occurrences - Cough consult starting (clinic) until 4 documented as of this encounter Results Pulmonary Function Tests (08/28/2020 11:28 AM INSPECTOR AIR CARRIER) P athologist Signature VC MAX PRE 3.89 L 08/28/2020 [facility] PM INSPECTOR AIR CARRIER SUITE FVC 3.89 L 08/28/2020 [facility] 2:03 PM INSPECTOR AIR CARRIER SUITE FEV1 2.06 L 08/28/2020 [facility] 2:03 PM INSPECTOR AIR CARRIER SUITE FEV1/FVC 53.05 % 08/28/2020 [facility] 2:03 PM INSPECTOR AIR CARRIER SUITE SRZ84-22% 1.01 L/s 08/28/2020 [facility] 2:03 PM INSPECTOR AIR CARRIER SUITE PEF PRE 7.96 L/s 08/28/2020 [facility] 2:03 PM INSPECTOR AIR CARRIER SUITE FET PRE 14.31 sec 08/28/2020 [facility] 2:03 PM INSPECTOR AIR CARRIER SUITE DLCO 15.90 ml/(min*mm 08/28/2020 [facility] Hg) 2:03 PM INSPECTOR AIR CARRIER SUITE DLCOc 19.30 ml/(min*mm 08/28/2020 [facility] Hg) 2:03 PM INSPECTOR AIR CARRIER SUITE HB 9.60 g(Hb)/dL 08/28/2020 [facility] 2:03 PM INSPECTOR AIR CARRIER SUITE VA 5.89 L 08/28/2020 [facility] 2:03 PM INSPECTOR AIR CARRIER SUITE P3MhkEjwj 99.00 % 08/28/2020 [facility] 2:03 PM INSPECTOR AIR CARRIER SUITE PulseRest 71.00 1/min 08/28/2020 [facility] 2:03 PM INSPECTOR AIR CARRIER SUITE [id number] 98.00 % 08/28/2020 [facility] 2:03 PM INSPECTOR AIR CARRIER SUITE PulseExer 104.00 1/min 08/28/2020 [facility] 2:03 PM INSPECTOR AIR CARRIER SUITE EXER TIME 3.00 min 08/28/2020 [facility] 2:03 PM INSPECTOR AIR CARRIER SUITE STEP HEIGHT 9.00 Inch 08/28/2020 [facility] PRE 2:03 PM INSPECTOR AIR CARRIER SUITE TLC 8.48 L 08/28/2020 [facility] 2:03 PM INSPECTOR AIR CARRIER SUITE VC PRE 3.76 L 08/28/2020 [facility] 2:03 PM INSPECTOR AIR CARRIER SUITE FRCPLETH 5.49 L 08/28/2020 [facility] PROV[facility] 2:03 PM INSPECTOR AIR CARRIER SUITE RV 4.72 L 08/28/2020 [facility] 2:03 PM INSPECTOR AIR CARRIER SUITE RV % TLC PRE 55.63 % 08/28/2020 [facility] 2:03 PM INSPECTOR AIR CARRIER SUITE TLC% 121 % % 08/28/2020 [facility] 2:03 PM INSPECTOR AIR CARRIER SUITE % PRED RV 188 % % 08/28/2020 [facility] 2:03 PM INSPECTOR AIR CARRIER SUITE % PRED VC MAX 91 % % 08/28/2020 [facility] 2:03 PM INSPECTOR AIR CARRIER SUITE FVC% 91 % % 08/28/2020 [facility] 2:03 PM INSPECTOR AIR CARRIER SUITE FEV1% 63 % % 08/28/2020 [facility] 2:03 PM INSPECTOR AIR CARRIER SUITE % PRED 69 % % 08/28/2020 [facility] FEV1/FVC 2:03 PM INSPECTOR AIR CARRIER SUITE % PRED FEF 39 % % 08/28/2020 [facility] 25-75% 2:03 PM INSPECTOR AIR CARRIER SUITE % PRED PEF 96 % % 08/28/2020 [facility] 2:03 PM INSPECTOR AIR CARRIER SUITE DLCO% 61 % % 08/28/2020 [facility] 2:03 PM INSPECTOR AIR CARRIER SUITE DLCOc% 74 % % 08/28/2020 [facility] 2:03 PM INSPECTOR AIR CARRIER SUITE PRED TLC 6.98 08/28/2020 [facility] 2:03 PM INSPECTOR AIR CARRIER SUITE PRED RV 2.51 08/28/2020 [facility] 2:03 PM INSPECTOR AIR CARRIER SUITE PRED VC MAX 4.30 08/28/2020 [facility] 2:03 PM INSPECTOR AIR CARRIER SUITE PRED FVC 4.30 08/28/2020 [facility] 2:03 PM INSPECTOR AIR CARRIER SUITE PRED FEV 1 3.29 08/28/2020 [facility] 2:03 PM INSPECTOR AIR CARRIER SUITE PRED FEV1/FVC 76.7 08/28/2020 [facility] 2:03 PM INSPECTOR AIR CARRIER SUITE PRED FEF 2.61 08/28/2020 [facility] 25-75% 2:03 PM INSPECTOR AIR CARRIER SUITE PRED PEF 8.3 08/28/2020 [facility] 2:03 PM INSPECTOR AIR CARRIER SUITE PRED DLCO 26.0 08/28/2020 [facility] 2:03 PM INSPECTOR AIR CARRIER SUITE PRED DLCOc 26.0 08/28/2020 [facility] 2:03 PM INSPECTOR AIR CARRIER SUITE Specimen (Source) Anatomical Collection Method Collection Time Re ceived Time Location / / Volume Laterality 08/28/2020 11:28 AM INSPECTOR AIR CARRIER Narrative This result has an attachment that is no t available. Avril Bright M.D. PFT ORDERABLES Performing Organization Address City/State/ZIP Code Phon e Number [place] [facility] [address] [place] [facility] [address] Exhaled Nitric Oxide - Pulmonology (08/28/2020 11:26 AM INSPECTOR AIR CARRIER) [facility] gist Method Time Signature Exhaled NO 21 MMODAL Oral Parts per 39 MMODAL billion (ULN) ENOComment Patient MMODAL currently takes: Pulmicort, Atrovent, Singulair, and Prednisone Specimen (Source) Anatomical Location Collection Method / Collectio n Time Received Time / Laterality Volume Avril Bright M.D. PFT ORDERABLES Performing Organization Address City/[facility]/ZIP Code Phon e Number MMODAL MMODAL NA DX Chest AP or PA and Lateral 2 Views (08/28/2020 10:09 AM INSPECTOR AIR CARRIER) Anatomical Region Laterality Modality Chest, Thoracic RST LOS, Thoracic ARZ LOS, Thoracic N/A Digital Radiography FLA LOS Specimen (Source) Anatomical Collection Method Collection Time Re ceived Time Location / / Volume Laterality 08/28/2020 10:12 AM INSPECTOR AIR CARRIER Impressions 08/28/2020 10:17 AM INSPECTOR AIR CARRIER Since 11/22/2019, new infiltrates and consolidation with [...] distal left clavicle. Narrative 08/28/2020 10:17 AM INSPECTOR AIR CARRIER EXAM: ??DX CHEST AP OR PA AND [...] Probable PO change distal left clavicle. Avril Bright M.D. IMG DIAGNOSTIC IMAGING PROCE IKE (ABNORMAL) Basic Metabolic Panel (08/28/2020 9:51 AM INSPECTOR AIR CARRIER) [facility] Time Signature Potassium, S 4.1 3.6 - 5.2 08/28/2020 [facility] mmol/L 11:00 AM INSPECTOR AIR CARRIER Sodium, S 137 135 - 145 08/28/2020 [facility] mmol/L 11:00 AM INSPECTOR AIR CARRIER Chloride, S 100 98 - 107 08/28/2020 [facility] mmol/L 11:00 AM INSPECTOR AIR CARRIER Bicarbonate, S 24 22 - 29 08/28/2020 [facility] mmol/L 11:03 AM INSPECTOR AIR CARRIER Anion Gap 13 7 - 15 08/28/2020 [facility] 11:03 AM INSPECTOR AIR CARRIER BUN (Blood Urea 57 (H) 8 - 24 08/28/2020 [facility] Nitrogen), S mg/dL 11:00 AM INSPECTOR AIR CARRIER Creatinine 3.67 (H) 0.74 - 08/28/2020 DTL 1.35 mg/dL 11:00 AM INSPECTOR AIR CARRIER eGFR-Non 16 (L) >=60 08/28/2020 [facility] Black/ mL/min/BSA 11:00 AM INSPECTOR AIR CARRIER Uzbek Comment: ----ADDITIONAL INFORMATION---- Estimated GFR calculated using the 2009 CKD_EPI creatinine equation. eGFR-Black/ 19 (L) >=60 mL/min/BSA 2020 11:00 AM INSPECTOR AIR CARRIER DTL Comment: ----ADDITIONAL INFORMATION---- Estimated GFR calculated using the 2009 CKD_EPI creatinine equation. Calcium, Total, S 8.5 (L) 8.8 - 10.2 mg/dL 08/28/2020 11:0 0 AM INSPECTOR AIR CARRIER DTL Glucose, S 180 (H) 70 - 140 mg/dL 08/28/2020 11:00 AM INSPECTOR AIR CARRIER DTL Specimen Anatomical Collection Method Collection Time Receive d Time (Source) Location / / Volume Laterality Blood (Blood, 08/28/2020 9:51 AM 08/29/19 21 Venous) INSPECTOR AIR CARRIER 10:17 AM INSPECTOR AIR CARRIER Avril Bright M.D. LAB BLOOD ADD-ON Performing Organization Address City/State/ZIP Code Phon e Number [facility] - [address] [place], [place] [address] [facility] [place] [address] Laboratories-[facility] [address] [facility] (ABNORMAL) CBC with Differential, Blood (08/28/2020 9:51 AM INSPECTOR AIR CARRIER) [facility] gist Method Time Signature Hemoglobin 9.6 (L) 13.2 - 08/28/2020 DTL 16.6 g/dL 10:42 AM INSPECTOR AIR CARRIER Hematocrit 29.6 (L) 38.3 - 08/28/2020 DTL 48.6 % 10:42 AM INSPECTOR AIR CARRIER Erythrocytes 3.12 (L) 4.35 - 08/28/2020 DTL 5.65 10:42 AM INSPECTOR AIR CARRIER x10(12)/L MCV 94.9 78.2 - 08/28/2020 DTL 97.9 fL 10:42 AM INSPECTOR AIR CARRIER RBC Distrib Width 13.0 11.8 - 08/28/2020 DTL 14.5 % 10:42 AM INSPECTOR AIR CARRIER Platelet Count 176 135 - 317 08/28/2020 DTL x10(9)/L 10:42 AM INSPECTOR AIR CARRIER Leukocytes 3.0 (L) 3.4 - 9.6 08/28/2020 DTL x10(9)/L 10:42 AM INSPECTOR AIR CARRIER Neutrophils 2.16 1.56 - 08/28/2020 DTL 6.45 10:42 AM INSPECTOR AIR CARRIER x10(9)/L Lymphocytes 0.39 (L) 0.95 - 08/28/2020 DTL 3.07 10:42 AM INSPECTOR AIR CARRIER x10(9)/L Monocytes 0.37 0.26 - 08/28/2020 DTL 0.81 10:42 AM INSPECTOR AIR CARRIER x10(9)/L Eosinophils 0.05 0.03 - 08/28/2020 DTL 0.48 10:42 AM INSPECTOR AIR CARRIER x10(9)/L Basophils <0.03 0.01 - 08/28/2020 DTL 0.08 10:42 AM INSPECTOR AIR CARRIER x10(9)/L Specimen Anatomical Collection Method Collection Time Receive d Time (Source) Location / / Volume Laterality Blood (Blood, 08/28/2020 9:51 AM 08/29/19 21 Venous) INSPECTOR AIR CARRIER 10:21 AM INSPECTOR AIR CARRIER Avril Bright M.D. LAB BLOOD ADD-ON Performing Organization Address City/State/ZIP Code Phon e Number [facility] - [address] [place] [id number] [facility] [place] [address] [facility] [address] documented in this encounter Visit Diagnoses Diagnosis Cough Unspecified Type - Primary Cough Unspecified Type documented in this encounter Additional Health Concerns Assessment Noted Time PHQ-9 Depression Total Score: 3 11/22/2019 7:34 AM CDT documented as of this encounter Care Teams Senior Staff Specialized Employment Relationship Specialty Start Date End Date Elsewhere, Pcp PCP - General Family Medicine 07/29/[address] [facility] - Laboratory Medicine 04/12/20 [place] [phone] documented as of this encounter
--- OUTSIDE RECORDS SUMMARY | 2022-04-13 12:23 | XMS_ITS | Encounter Summary ---
:1955 Author Organization [facility] Address [address] [place] [address] Care Team Providers Name Role Phone Elsewhere, Pcp Primary Care Provider Unavailable Encounter Details Date Type Department Care Team Description 06/29/2020 Hospital Encounter Department of [facility], [facility] Laboratory Medicine Sada Hobson Chronic Kidney in [address] Disease Stage 4 (HCC) [place], [place] [address] [facility] [address] [place], [place] [phone] [address] (Work) [phone] Social History Tobacco Use Types Packs/Day Years [...] at Date Recorded Male 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 Medication Therapy Shift Mechanic Not Anticoagulant tacrolimus (PROGRAF) 0.5 Take 2 capsules (1 360 capsule 3 07/20/2020 mg capsuleIndications: mg total) by mouth Transplant Liver ([facility]), 2 (two) times a Medication Therapy Long day. Term Not Anticoagulant traZODone (DESYREL) 100 Take 1 tablet by 0 201610/12/2020 mg tablet mouth at bedtime as needed for sleep. Maintenance documented as 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 [address] [place] [phone] 04/25/2022 Office Visit Otorhinolaryngology Dex Matta APRN C.N.P., M.S.N. [address] [place] [phone] 05/08/2022 Appointment Laboratory Medicine Angélica Granger P.A.-C. [address] [place] [address] [phone] 05/08/2022 Clinical Admitting/Central Communication Scheduling 05/10/2022 Appointment Radiology Jeremie Rose M.D. [address] [place] [address] [phone] 05/10/2022 Comprehensive Visit Orthopedic Surgery Warner Graves M.D. [address] [place] [address] [phone] 05/22/2022 Appointment Laboratory Medicine Angélica Granger P.A.-C. [address] [place] [address] [phone] 06/05/2022 Appointment Laboratory Medicine Angélica Granger P.A.-C. [address] [place] [phone] 06/19/2022 Appointment Laboratory Medicine Angélica Granger P.A.-C. [address] [place] [phone] 07/03/2022 Appointment Laboratory Medicine Angélica Granger P.A.-C. [address] [place] [phone] 07/17/2022 Appointment Laboratory Medicine Angélica Granger P.A.-C. [address] [place] [phone] 07/31/2022 Appointment Laboratory Medicine Angélica Granger P.A.-C. [address] [place] [phone] 08/14/2022 Appointment Laboratory Medicine Angélica Granger P.A.-C. [address] [place] [phone] 08/28/2022 Appointment Laboratory Medicine Angélica Granger P.A.-C. [address] [place] [phone] documented as of this encounter Procedures Procedure Name Priority Date/Time Associated Diagnosis Comme nts BASIC METABOLIC Routine 06/29/2020 8:35 AM Hypertension And Re sults for this PANEL, S/P PLASTIC TUBING INSULATION SUPERVISOR Chronic Kidney procedure are in Disease Stage 4 (HCC) the re sults section. documented in this encounter Results (ABNORMAL) Basic Metabolic Panel (06/29/2020 8:35 AM PLASTIC TUBING INSULATION SUPERVISOR) Analysis Performed At Patho logist Time Signature Potassium, P 3.9 3.6 - 5.2 06/29/2020 [place] mmol/L 10:53 AM PLASTIC TUBING INSULATION SUPERVISOR Sodium, P 137 135 - 145 06/29/2020 [place] mmol/L 10:53 AM PLASTIC TUBING INSULATION SUPERVISOR Chloride, P 101 98 - 107 06/29/2020 [facility] mmol/L 10:53 AM PLASTIC TUBING INSULATION SUPERVISOR Bicarbonate, P 26 22 - 29 06/29/2020 [place] mmol/L 10:53 AM PLASTIC TUBING INSULATION SUPERVISOR Anion Gap, P 10 7 - 15 06/29/2020 [place] 10:53 AM PLASTIC TUBING INSULATION SUPERVISOR BUN (Blood Urea 53 (H) 8 - 24 06/29/2020 [place] Nitrogen), P mg/dL 10:53 AM PLASTIC TUBING INSULATION SUPERVISOR Creatinine 3.58 (H) 0.74 - 06/29/2020 [place] 1.35 mg/dL 10:53 AM PLASTIC TUBING INSULATION SUPERVISOR eGFR-Black/Afri 19 (L) >=60 06/29/2020 [facility] can [place] mL/min/BSA 10:53 AM PLASTIC TUBING INSULATION SUPERVISOR Comment: ----ADDITIONAL INFORMATION---- Estimated GFR calculated using the 2009 CKD_EPI creatinine equation. eGFR Non-Black/ 17 (L) >=60 mL/min/BSA 06/29/2020 10:53 AM PLASTIC TUBING INSULATION SUPERVISOR [place] Comment: ----ADDITIONAL INFORMATION---- Estimated GFR calculated using the 2008 CKD_EPI creatinine equation. Calcium, Total, P 9.3 8.8 - 10.2 mg/dL 06/29/2020 10:5 3 AM PLASTIC TUBING INSULATION SUPERVISOR [facility] Glucose, P 108 70 - 140 mg/dL 06/29/2020 10:53 AM PLASTIC TUBING INSULATION SUPERVISOR [place] Specimen Anatomical Collection Method Collection Time Receive d Time (Source) Location / / Volume Laterality Blood (Blood, 06/29/2020 8:35 AM 06/29/19 Venous) PLASTIC TUBING INSULATION SUPERVISOR 10:20 AM PLASTIC TUBING INSULATION SUPERVISOR Joce Bailey M.D. LAB BLOOD ADD-ON Performing Organization Address City/State/ZIP Code Phon e Number [facility]- [address] [place] [address] [place] [address] System in [place] [address] [facility] documented in this encounter Visit Diagnoses Diagnosis Hypertension And Chronic Kidney Disease Stage 4 (HCC) documented in this encounter Additional Health Concerns Assessment Noted Time PHQ-9 Depression Total Score: 3 11/22/2019 7:34 AM CDT documented as of this encounter Care Teams Residential Leasing Agent Relationship Specialty Start Date End Date Elsewhere, Pcp PCP - General Family Medicine 07/29/17 [facility] - Laboratory Medicine 04/12/[address] [phone] documented as of this encounter
--- OUTSIDE RECORDS SUMMARY | 2022-04-13 12:23 | XMS_ITS | Encounter Summary ---
:1955 Author Organization [facility] Address [address] [place] [address] Care Team Providers Name Role Phone Elsewhere, Pcp Primary Care Provider Unavailable Reason for Visit Reason Comments Med Refill Encounter Details Date Type Department Care Team Description 07/20/2020 Refill Curt Anju [facility], Edmond Azevedo, RDemetriusNDemetrius, Med Refill Transplantation and Clinical [facility] .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 [address] [place] [address] [phone] 05/08/2022 Appointment Laboratory Medicine Angélica Granger P.A.-CDemetrius [address] [place] [address] [phone] 05/08/2022 Clinical Admitting/Central Communication Scheduling 05/10/2022 Appointment Radiology Jeremie Rose M.D. [address] [place] [phone] 05/10/2022 Comprehensive Visit Orthopedic Surgery Warner Graves M.D. [address] [place] [address] [phone] 05/22/2022 Appointment Laboratory Medicine Angélica Granger P.A.-CDemetrius [address] [place] [phone] 06/05/2022 Appointment Laboratory Medicine Angélica Granger P.A.-C. [address] [place] [phone] 06/19/2022 Appointment Laboratory Medicine Angélica Granger P.A.-C. [address] [place] [phone] 07/03/2022 Appointment Laboratory Medicine Angélica Granger P.A.-C. [address] [place] [phone] 07/17/2022 Appointment Laboratory Medicine Angélica Granger P.A.-C. [address] [place] [address] [phone] 07/31/2022 Appointment Laboratory Medicine Angélica Granger P.A.-C. [address] [place] [phone] 08/14/2022 Appointment Laboratory Medicine Angélica Granger P.A.-C. [address] [place] [address] [phone] 08/28/2022 Appointment Laboratory Medicine Angélica Granger P.A.-C. [address] [place] [phone] documented as of this encounter Visit Diagnoses Diagnosis Transplant Liver (HCC) Medication Therapy Ethologist Not Anticoa gulant documented in this encounter Additional Health Concerns Assessment Noted Time PHQ-9 Depression Total Score: 3 11/22/2019 7:34 AM CDT documented as of this encounter Care Teams Brazer Crawler Torch Relationship Specialty Start Date End Date Elsewhere, Pcp PCP - General Family Medicine 07/29/17 [facility] - Laboratory Medicine 04/12/20 [place] [phone] documented as of this encounter
--- OUTSIDE RECORDS SUMMARY | 2022-04-13 12:23 | XMS_ITS | Encounter Summary ---
:1955 Author Organization [facility] Address [address] [place] [address] Care Team Providers Name Role Phone Elsewhere, Pcp Primary Care Provider Unavailable Encounter Details Date Type Department Care Team Description 08/23/2020 Orders Only [facility] PCP TH Sa nikolay Forrester M.D. 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 [address] [place] [phone] 04/25/2022 Office Visit Otorhinolaryngology Dex Matta APRN, C.N.P., M.S.N. [address] [place] [address] [phone] 05/08/2022 Appointment Laboratory Medicine Angélica Granger P.A.-CDemetrius [address] [place] [address] [phone] 05/08/2022 Clinical Admitting/Central Communication Scheduling 05/10/2022 Appointment Radiology Jeremie Rose M.D. [address] [place] [phone] 05/10/2022 Comprehensive Visit Orthopedic Surgery Warner Graves M.D. [address] [place] [address] [phone] 05/22/2022 Appointment Laboratory Medicine Angélica Granger P.A.-CDemetrius [address] [place] [phone] 06/05/2022 Appointment Laboratory Medicine Angélica Granger P.A.-C. [address] [place] [phone] 06/19/2022 Appointment Laboratory Medicine Angélica Granger P.A.-C. [address] [place] [phone] 07/03/2022 Appointment Laboratory Medicine Angélica Granger P.A.-C. [address] [place] [phone] 07/17/2022 Appointment Laboratory Medicine Angélica Granger P.A.-C. [address] [place] [phone] 07/31/2022 Appointment Laboratory Medicine Angélica Granger P.A.-C. [address] [place] [phone] 08/14/2022 Appointment Laboratory Medicine Angélica Granger P.A.-C. [address] [place] [phone] 08/28/2022 Appointment Laboratory Medicine Angélica Granger P.A.-C. [address] [place] [phone] documented as of this encounter Visit Diagnoses Not on filedocumented in this encounter Additional Health Concerns Assessment Noted Time PHQ-9 Depression Total Score: 3 11/22/2019 7:34 AM CDT documented as of this encounter Care Teams Pbx Installer Relationship Specialty Start Date End Date Elsewhere, Pcp PCP - General Family Medicine 07/29/17 [facility] - Laboratory Medicine 04/12/[address] [phone] documented as of this encounter
--- OUTSIDE RECORDS SUMMARY | 2022-04-13 12:23 | XMS_ITS | Encounter Summary ---
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 [address] [place] [phone] 04/25/2022 Office Visit Otorhinolaryngology Dex Matta APRN, C.N.P., M.S.N. [address] [place] [phone] 05/08/2022 Appointment Laboratory Medicine Angélica Granger P.A.-C. [address] [place] [phone] 05/08/2022 Clinical Admitting/Central Communication Scheduling 05/10/2022 Appointment Radiology Jeremie Rose M.D. [address] [place] [phone] 05/10/2022 Comprehensive Visit Orthopedic Surgery Warner Graves M.D. [address] [place] [phone] 05/22/2022 Appointment Laboratory Medicine Angélica Granger P.A.-C. [address] [place] [phone] 06/05/2022 Appointment Laboratory Medicine Angélica Granger P.A.-C. [address] [place] [address] [phone] 06/19/2022 Appointment Laboratory Medicine Angélica Granger P.A.-C. [address] [place] [phone] 07/03/2022 Appointment Laboratory Medicine Angélica Granger P.A.-C. [address] [place] [phone] 07/17/2022 Appointment Laboratory Medicine Angélica Granger P.A.-C. [address] [place] [phone] 07/31/2022 Appointment Laboratory Medicine Angélica Granger P.A.-C. [address] [place] [phone] 08/14/2022 Appointment Laboratory Medicine Angélica Granger P.A.-C. [address] [place] [phone] 08/28/2022 Appointment Laboratory Medicine Angélica Granger P.A.-C. [address] [place] [phone] documented as of this encounter Procedures Procedure Name Priority Date/Time Associated Comments Diagnosis OTORHINOLARYNGOLOGY IMAGE Routine 06/06/2020 10:17 Results for this EXAM AM STONECUTTER ASSISTANT procedure are i n the results section. documented in this encounter Results NOSE-Otorhinolaryngology Image Exam (06/06/2020 10:17 AM STONECUTTER ASSISTANT) Specimen (Source) Anatomical Collection Method Collection Time Re ceived Time Location / / Volume Laterality 06/06/2020 10:18 AM STONECUTTER ASSISTANT Narrative [facility]IMS - 06/06/2020 10:17 AM STONECUTTER ASSISTANT This order has been created and auto-finalized [...] documented as of this encounter Care Teams Icing And Glaze Maker Relationship Specialty Start Date End Date Elsewhere, Pcp PCP - General Family Medicine 07/29/17 [facility] - Laboratory Medicine 04/12/20 [place] [phone] documented as of this encounter
--- OUTSIDE RECORDS SUMMARY | 2022-04-13 12:24 | XMS_ITS | Encounter Summary ---
:1955 Author Organization [facility] Address [address] [place] [address] Care Team Providers Name Role Phone Elsewhere, Pcp Primary Care Provider Unavailable Reason for Visit Reason Comments Med Refill Encounter Details Date Type Department Care Team Description 05/15/2020 Refill Division of Nephrology and Florence Wren M.D., Med Refill Hypertension in [place], [place]. 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 Forwarded to nurses. MACY SPECIALIST documented in this encounter Plan of Treatment Upcoming Encounters Date Type Specialty Care Team Description 04/24/2022 Appointment Laboratory Medicine Angélica Granger, Andreea-CDemetrius [address] [place] [phone] 04/25/2022 Office Visit Otorhinolaryngology Dex Matta, RAMONA, C.N.P., M.S.N. [address] [place] [phone] 05/08/2022 Appointment Laboratory Medicine Angélica Granger P.A.-CDemetrius [address] [place] [phone] 05/08/2022 Clinical Admitting/Central Communication Scheduling 05/10/2022 Appointment Radiology Jeremie Rose M.D. [address] [place] [phone] 05/10/2022 Comprehensive Visit Orthopedic Surgery Warner Graves M.D. [address] [place] [address] [phone] 05/22/2022 Appointment Laboratory Medicine Angélica Granger P.A.-C. [address] [place] [phone] 06/05/2022 Appointment Laboratory Medicine Angélica Granger P.A.-C. [address] [place] [phone] 06/19/2022 Appointment Laboratory Medicine Angélica Granger P.A.-C. [address] [place] [phone] 07/03/2022 Appointment Laboratory Medicine Angélica Granger P.A.-C. [address] [place] [phone] 07/17/2022 Appointment Laboratory Medicine Angélica Granger P.A.-C. [address] [place] [phone] 07/31/2022 Appointment Laboratory Medicine Angélica Granger P.A.-C. [address] [place] [phone] 08/14/2022 Appointment Laboratory Medicine Angélica Granger P.A.-C. [address] [place] [phone] 08/28/2022 Appointment Laboratory Medicine Angélica Granger P.A.-C. [address] [place] [phone] documented as of this encounter Visit Diagnoses Diagnosis Chronic Kidney Disease Stage 4 Glomerula r Filtration Rate 15-29 (HCC) documented in this encounter Additional Health Concerns Assessment Noted Time PHQ-9 Depression Total Score: 3 11/22/2019 7:34 AM CDT documented as of this encounter Care Teams Mill Feeder Relationship Specialty Start Date End Date Elsewhere, Pcp PCP - General Family Medicine 07/29/17 [facility] - Laboratory Medicine 04/12/[address] [phone] documented as of this encounter
--- OUTSIDE RECORDS SUMMARY | 2022-04-13 12:24 | XMS_ITS | Encounter Summary ---
:1955 Author Organization [facility] Address [address] [place] [address] Care Team Providers Name Role Phone Elsewhere, Pcp Primary Care Provider Unavailable Reason for Visit Reason Comments Pre-visit Testing Orders Encounter Details Date Type Department Care Team Description 05/05/2020 Clinical Communication Division of [facility], Pre- visit Testing Nephrology and Sada Hobson Orders Hypertension in [address] [place], [place] [address] [place] [phone] [place], [place] [phone] (Work) [phone] Social History Tobacco Use Types Packs/Day Years [...] at Date Recorded Male 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 - 05/08/2020 10:56 PM TRAIN BRAKE OPERATOR I ordered blood and urine test. Please schedule before the visit. N BRAKE OPERATOR Telephone Encounter - Rosio Santamaria - 05/05/2020 4:[address] Bailey, Mr Singh scheduled to see you on May 22. Would you like pre-testing? Thank you Rosio Avelar-Schedule testing [place] on 11 AM. Call patient. N BRAKE OPERATOR documented in this encounter Plan of Treatment Upcoming Encounters Date Type Specialty Care Team Description 04/24/2022 Appointment Laboratory Medicine Angélica Granger P.A.-CDemetrius [address] [place] [phone] 04/25/2022 Office Visit Otorhinolaryngology Dex Matta APRN, C.N.P., M.S.N. [address] [place] [phone] 05/08/2022 Appointment Laboratory Medicine Angélica Granger P.A.-C. [address] [place] [phone] 05/08/2022 Clinical Admitting/Central Communication Scheduling 05/10/2022 Appointment Radiology Jeremie Rose M.D. [address] [place] [phone] 05/10/2022 Comprehensive Visit Orthopedic Surgery Warner Graves M.D. [address] [place] [phone] 05/22/2022 Appointment Laboratory Medicine Angélica Granger P.A.-C. [address] [place] [phone] 06/05/2022 Appointment Laboratory Medicine Angélica Granger P.A.-C. [address] [place] [phone] 06/19/2022 Appointment Laboratory Medicine Angélica Granger P.A.-C. [address] [place] [phone] 07/03/2022 Appointment Laboratory Medicine Angélica Granger P.A.-C. [address] [place] [phone] 07/17/2022 Appointment Laboratory Medicine Angélica Granger P.A.-C. [address] [place] [phone] 07/31/2022 Appointment Laboratory Medicine Angélica Granger P.A.-C. [address] [place] [phone] 08/14/2022 Appointment Laboratory Medicine Angélica Granger P.A.-C. [address] [place] [phone] 08/28/2022 Appointment Laboratory Medicine Angélica Granger P.A.-C. [address] [place] [phone] documented as of this encounter Results (ABNORMAL) Albumin, Random, Urine (05/19/2020 9:29 AM TRAIN BRAKE OPERATOR) Patholo gist Method Time Signature Microalbumin 1341.0 mg/L 05/19/2020 [place] 12:05 PM TRAIN BRAKE OPERATOR Creatinine 87 mg/dL 05/19/2020 [place] 11:01 AM TRAIN BRAKE OPERATOR Albumin/Creatinin 1541 (H) <17 mg/g 05/19/2020 [place] e Ratio 12:05 PM TRAIN BRAKE OPERATOR Specimen Anatomical Collection Method Collection Time Receive d Time (Source) Location / / Volume Laterality Urine (Urine, 05/19/2020 9:29 AM 05/19/20 20 Voided) TRAIN BRAKE OPERATOR 10:27 AM TRAIN BRAKE OPERATOR Joce Bailey M.D. LAB URINE ORDERABLES Performing Organization Address City/State/ZIP Code Phon e Number [facility] [address] [place] [address] [place] [address] System in [place] [address] (ABNORMAL) Urinalysis with Microscopic: Urine, Voided (05/19/2020 9:29 AM TRAIN BRAKE OPERATOR) P athologist Signature Source Void 05/19/2020 9:37 FB60 AM TRAIN BRAKE OPERATOR Clarity Clear Clear 05/19/2020 9:45 FB60 AM TRAIN BRAKE OPERATOR Color Yellow 05/19/2020 9:45 FB60 AM TRAIN BRAKE OPERATOR Comment: ----REFERENCE VALUE---- Colorless Yellow Bhakti Blood Small (A) Negative 05/19/2020 9:45 AM TRAIN BRAKE OPERATOR FB60 Nitrite Negative Negative 05/19/2020 9:45 AM TRAIN BRAKE OPERATOR FB60 Leukocyte Esterase Negative Negative 05/19/2020 9:45 AM CS T FB60 Protein >=300 (A) mg/dL 05/19/2020 9:45 AM TRAIN BRAKE OPERATOR FB60 Comment: ----REFERENCE VALUE---- Negative Trace Glucose Negative Negative mg/dL 05/19/2020 9:45 AM TRAIN BRAKE OPERATOR FB 60 Ketones, QI(U) Negative Negative mg/dL 05/19/2020 9:[address] FB60 Bilirubin Negative Negative 05/19/2020 9:45 AM TRAIN BRAKE OPERATOR FB60 pH 7.0 5.0 - 8.0 05/19/2020 9:45 AM TRAIN BRAKE OPERATOR FB60 Specific [place] 1.020 1.001 - 1.035 05/19/2020 9:45 AM TRAIN BRAKE OPERATOR FB60 Urobilinogen 0.2 0.2 - 1.0 mg/dL 05/19/2020 9:45 AM CS T FB60 White Blood Cells Occ-3 /hpf 05/19/2020 9:45 AM TRAIN BRAKE OPERATOR FB60 Comment: ----REFERENCE VALUE---- Males: 0-3 Females: 0-10 Unknown: 0-10 Red Blood Cells 3-10 (A) 0 - 2 /hpf 05/19/2020 9:45 AM TRAIN BRAKE OPERATOR FB60 Dysmorphic Red Blood Cells <=25 <=25 % 05/19/2020 9: 45 AM TRAIN BRAKE OPERATOR FB60 Specimen Anatomical Collection Method Collection Time Receive d Time (Source) Location / / Volume Laterality Urine (Urine, 05/19/2020 9:29 AM 05/19/20 20 9:29 Voided) TRAIN BRAKE OPERATOR AM TRAIN BRAKE OPERATOR Joce Bailey M.D. LAB URINE ORDERABLES Performing Organization Address City/State/ZIP Code Phon e Number [place] [address] [place] [address] [facility] [address] [place] [address] (ABNORMAL) Magnesium (05/19/2020 9:26 AM TRAIN BRAKE OPERATOR) P athologist Signature Magnesium, P 3.0 (H) 1.7 - 2.3 05/19/2020 [place] mg/dL 10:49 AM TRAIN BRAKE OPERATOR Specimen Anatomical Collection Method Collection Time Receive d Time (Source) Location / / Volume Laterality Blood (Blood, 05/19/2020 9:26 AM 05/19/20 20 Venous) TRAIN BRAKE OPERATOR 10:27 AM TRAIN BRAKE OPERATOR Joce Bailey M.D. LAB BLOOD ADD-ON Performing Organization Address City/State/ZIP Code Phon e Number [facility] [address] [place] [address] [facility] [place] [address] System in [place] [address] (ABNORMAL) CBC with Differential, Blood (05/19/2020 9:26 AM TRAIN BRAKE OPERATOR) [facility] Method Time Signature Hemoglobin 11.0 (L) 13.2 - 05/19/2020 FB60 16.6 g/dL 9:31 AM TRAIN BRAKE OPERATOR Hematocrit 32.1 (L) 38.3 - 05/19/2020 FB60 48.6 % 9:31 AM TRAIN BRAKE OPERATOR Erythrocytes 3.58 (L) 4.35 - 05/19/2020 FB60 5.65 9:31 AM TRAIN BRAKE OPERATOR x10(12)/L MCV 89.7 78.2 - 05/19/2020 FB60 97.9 fL 9:31 AM TRAIN BRAKE OPERATOR RBC Distrib Width 13.3 11.8 - 05/19/2020 FB60 14.5 % 9:31 AM TRAIN BRAKE OPERATOR Platelet Count 183 135 - 317 05/19/2020 FB60 x10(9)/L 9:31 AM TRAIN BRAKE OPERATOR Leukocytes 3.3 (L) 3.4 - 9.6 05/19/2020 FB60 x10(9)/L 9:31 AM TRAIN BRAKE OPERATOR Neutrophils 1.53 (L) 1.56 - 05/19/2020 FB60 6.45 9:31 AM TRAIN BRAKE OPERATOR x10(9)/L Lymphocytes 1.17 0.95 - 05/19/2020 FB60 3.07 9:31 AM TRAIN BRAKE OPERATOR x10(9)/L Monocytes 0.51 0.26 - 05/19/2020 FB60 0.81 9:31 AM TRAIN BRAKE OPERATOR x10(9)/L Eosinophils 0.07 0.03 - 05/19/2020 FB60 0.48 9:31 AM TRAIN BRAKE OPERATOR x10(9)/L Basophils 0.01 0.01 - 05/19/2020 FB60 0.08 9:31 AM TRAIN BRAKE OPERATOR x10(9)/L Specimen Anatomical Collection Method Collection Time Receive d Time (Source) Location / / Volume Laterality Blood (Blood, 05/19/2020 9:26 AM 05/19/20 20 9:27 Venous) TRAIN BRAKE OPERATOR AM TRAIN BRAKE OPERATOR Joce Bailey M.D. LAB BLOOD ADD-ON Performing Organization Address City/State/ZIP Code Phon e Number [facility]- [address] [place] [address] [facility] [address] [place] [address] System in [place] [address] (ABNORMAL) Cystatin C with Estimated GFR, S (05/19/2020 9:26 AM TRAIN BRAKE OPERATOR) athologist Signature eGFR by 14 >60 05/20/2020 DAVE Cystatin C mL/min/BSA 9:53 AM TRAIN BRAKE OPERATOR Comment: ----ADDITIONAL INFORMATION---- Cystatin C-based eGFR may differ substan tially from creatinine-based eGFR in patients with a bnormal muscle mass or acutely changing renal function. ??Pl ease interpret together with relevant clinical features. Cystatin C, S 3.56 (H) 0.77 - 1.42 mg/L 05/20/2020 9:53 AM TRAIN BRAKE OPERATOR DAVE Specimen Anatomical Collection Method Collection Time Receive d Time (Source) Location / / Volume Laterality Blood (Blood, 05/19/2020 9:26 AM 05/20/20 20 7:58 Venous) TRAIN BRAKE OPERATOR AM TRAIN BRAKE OPERATOR Joce Bailey M.D. LAB BLOOD ADD-ON Performing Organization Address City/State/ZIP Code Phon e Number [facility] [address] [place], [place] [address] [place] [address] [facility] [address] (ABNORMAL) Renal Function Panel (05/19/2020 9:26 AM TRAIN BRAKE OPERATOR) Analysis Performed At Patho logist Time Signature Potassium, P 3.9 3.6 - 5.2 05/19/2020 [place] mmol/L 10:49 AM TRAIN BRAKE OPERATOR Sodium, P 138 135 - 145 05/19/2020 [place] mmol/L 10:49 AM TRAIN BRAKE OPERATOR Chloride, P 99 98 - 107 05/19/2020 [place] mmol/L 10:49 AM TRAIN BRAKE OPERATOR Bicarbonate, P 27 22 - 29 05/19/2020 [place] mmol/L 10:49 AM TRAIN BRAKE OPERATOR Anion Gap, P 12 7 - 15 05/19/2020 [place] 10:49 AM TRAIN BRAKE OPERATOR BUN (Blood Urea 62 (H) 8 - 24 05/19/2020 [place] Nitrogen), P mg/dL 10:49 AM TRAIN BRAKE OPERATOR Creatinine 3.37 (H) 0.74 - 05/19/2020 [place] 1.35 mg/dL 10:49 AM TRAIN BRAKE OPERATOR eGFR-Black/Afri 21 (L) >=60 05/19/2020 [place] can [place] mL/min/BSA 10:49 AM TRAIN BRAKE OPERATOR Comment: ----ADDITIONAL INFORMATION---- Estimated GFR calculated using the 2009 CKD_EPI creatinine equation. eGFR Non-Black/ 18 (L) >=60 mL/min/BSA 05/19/2020 10:49 AM TRAIN BRAKE OPERATOR [place] Comment: ----ADDITIONAL INFORMATION---- Estimated GFR calculated using the 2009 CKD_EPI creatinine equation. Calcium, Total, P 8.8 8.8 - 10.2 mg/dL 05/19/2020 10:4 9 AM TRAIN BRAKE OPERATOR [place] Glucose, P 131 70 - 140 mg/dL 05/19/2020 10:49 AM TRAIN BRAKE OPERATOR [place] Albumin, P 4.0 3.5 - 5.0 g/dL 05/19/2020 10:49 AM TRAIN BRAKE OPERATOR [place] Phosphorus (Inorganic), P 4.1 2.5 - 4.5 mg/dL 05/19/20 4:12 PM TRAIN BRAKE OPERATOR AUST Specimen Anatomical Collection Method Collection Time Receive d Time (Source) Location / / Volume Laterality Blood (Blood, 05/19/2020 9:26 AM 05/19/20 Venous) TRAIN BRAKE OPERATOR 10:27 AM TRAIN BRAKE OPERATOR Narrative [facility] - 05/19/2020 4:12 PM TRAIN BRAKE OPERATOR Specimen Information: Specimen ID: [id number] Specimen Type: Blood Specimen Collection Start Date: 020 ??9:26 AM Specimen Received Date: 05/19/2020 10:2 7 AM Specimen ID: [id number] Specimen Type: Blood Specimen Collection Start Date: 020 ??9:26 AM Specimen Received Date: 05/19/2020 ??3: 30 PM Joce Bailey M.D. LAB BLOOD ADD-ON Performing Organization Address City/State/ZIP Code Phon e Number [facility] [address] [place] [address] [place] [address] System in [place] [address] [facility] [place] [address] [facility] [address] documented in this encounter Visit Diagnoses Diagnosis Chronic Kidney Disease Stage 4 Glomerula r Filtration Rate 15-29 (HCC) - Primary Chronic Kidney Disease Stage 4 Glomerula r Filtration Rate 15-29 (HCC) documented in this encounter Additional Health Concerns Assessment Noted Time PHQ-9 Depression Total Score: 3 11/22/2019 7:34 AM CDT documented as of this encounter Care Teams Insurance Coordinator Relationship Specialty Start Date End Date Elsewhere, Pcp PCP - General Family Medicine 07/29/17 [facility] - Laboratory Medicine 04/12/20 [place] [phone] documented as of this encounter
--- OUTSIDE RECORDS SUMMARY | 2022-04-13 12:24 | XMS_ITS | Encounter Summary ---
:1955 Author Organization [facility] Address [address] [place] [address] Care Team Providers Name Role Phone Elsewhere, Pcp Primary Care Provider Unavailable Reason for Referral Outpatient (Routine) - Closed Specialty Diagnoses / Procedures Referred By Contact Refer red To Contact Nephrology and [facility] Hypertension Sada Hobson [address] [place] [address] Referral ID Status Reason Start Date Expiration Date Visits Requ ested Visits Authorized [id number] Closed 05/22/2020 05/22/2021 1 1 NTER MACHINE JOINER Outpatient (Routine) - Closed Specialty Diagnoses / Procedures Referred By Contact Refer red To Contact Nephrology and [facility] Hypertension Sada Hobson [address] [place] [address] Referral ID Status Reason Start Date Expiration Date Visits Requ ested Visits Authorized [id number] Closed 05/22/2020 05/22/2021 1 1 NTER MACHINE JOINER Reason for Visit Reason Comments Chronic Kidney Disease Outpatient (Routine) - Closed Specialty Diagnoses / Procedures Referred By Contact Refer red To Contact Nephrology and [facility] Hypertension Sada Hobson [address] [place] [address] Referral ID Status Reason Start Date Expiration Date Visits Requ ested Visits Authorized [id number] Closed 11/17/2019 11/16/2020 1 1 Encounter Details Date Type Department Care Team Description 05/22/2020 Office Visit Division of Nephrology Mike Bailey rtension And and Hypertension in Sada Hobson Chronic Kidney Disease [place], [place] [address] [facility] Stage 4 (HCC) (Primary [address] [place], [place] Dx) [place] [id number] [phone] Social History Tobacco Use Types Packs/Day Years [...] at Date Recorded Male 05/16/2020 4:27 PM CEMENTER MACHINE JOINER documented as of this encounter Last Filed Vital Signs Vital Sign Reading Time Taken Comments Blood Pressure 146/80 05/22/2020 3:32 PM CEMENTER MACHINE JOINER Pulse 61 05/22/2020 3:32 PM CEMENTER MACHINE JOINER Temperature 36.1 ??C (97 ??F) 05/22/2020 3:32 PM CEMENTER MACHINE JOINER Respiratory Rate - - Oxygen Saturation - - Inhaled Oxygen Concentration - - Weight 80.8 kg (178 lb 2.1 oz) 05/22/2020 3:32 PM CEMENTER MACHINE JOINER Height 180.7 cm (5' 11.14) 05/22/2020 3:32 PM CEMENTER MACHINE JOINER Body Mass Index 24.75 05/22/2020 3:32 PM CEMENTER MACHINE JOINER documented in this encounter Progress Notes Espinoza Bailey M.D. - 05/22/2020 4:00 PM CST SUBJECTIVE REASON FOR VISIT [...] left renal artery stent in 03/2017, hypertension.He was last seen by me in 01/2018. He got kidney biopsy 08/2017 due to proteinuria and hematuria with dysmorphic RBC showing focal segmental sclerosis with some collapsing features. The finding of collapsing feature was thought to be due to calcineurin inhibitor. He also has significant arteriosclerosisand arteriolar hyalinosis, [id number]. Interstitial fibrosis with tubular atrophy affects approximately 30-40% of the sample cortex. In March 2020, he had elevated blood pressure up to 170-200/80-100 in setting of worsening leg edema. I changed torsemide from 30 mg daily to 20 mg BID. He later realized that he in fact forgot to put torsemide in his pill box, thus, he did not take torsemide for a week before found to have elevatedblood pressure. His blood pressure and leg swelling improved after restarting diuretics. Follow- up blood test showed elevated creatinine up to 3.2. Due to elevated creatinine, he reduced torsemide to 20 mg in AM and 10 mg in PM by himself. His home blood pressure were 140-160/80-90. He denies lightheadedness, chest pain, shortness of breath, palpitation, headache, leg swelling, nausea, vomiting, abdominal pain. He urinates 1-2 times at night. He drinks 6-8 glasses of water daily. He denies NSAID use. He gained weight from 76 kg in 10/2019 to 81 kg this visit. He had transplant evaluation in 03/2018. He is currently listed inactive in the waiting list given eGFR above 20. He has already attended renal replacement therapy treatment option and is interested inhome hemodialysis. The following portions of the patient's [...] Psych Past Medical History: Diagnosis Date ??? Chronic Kidney Disease Stage 4 Glomerular Filtration Rate 15-29 (HCC) ??? Hepatitis Autoimmune (HCC) ??? Other Complications Of Liver Transplant (HCC) Past Surgical History: Procedure Laterality Date ??? [...] 40 cc of Omnipaque contrast injected). ??? TRANSPLANT LIVER - DONOR WITH BACK [...] HERNIA REPAIR N/A 09/03/2013 >Umbilical hernia repair. Social History: reports that he has never smoked. He has never used smokeless tobacco. Drug use questions deferred to the physician. He reports that he does not drink alcohol. Family History: family history includes Coronary artery disease in his mother; Heart attack in his father and mother; Heart disease in his father and mother. Current Outpatient Medications Medication Sig Dispense Refill ??? acetaminophen (TYLENOL) 500 mg tablet Take 1 tablet by mouth every 6 (six) hours as needed. Pain. No more than 2000 mg per day. ??? amoxicillin (AMOXIL) 500 mg capsule Take 4 capsules by mouth as directed. Prior to dental procedures 0 ??? aspirin (ASPIRIN CHILDRENS) 81 mg chewable tablet Chew daily. ??? atorvastatin (LIPITOR) 10 mg tablet Take 1 tablet (10 mg total) by mouth daily. 90 tablet 3 ??? calcium carb/magnesium oxid/D3 (CALCIUM MAGNESIUM [...] by mouth daily. 90 tablet 3 ??? lamoTRIgine (LaMICtal) 200 mg tablet TAKE [...] MOUTH TWICE DAILY 180 tablet 3 ??? predniSONE (DELTASONE) 5 mg tablet Take 1 tablet (5 mg total) by mouth daily. 90 tablet 3 ??? tacrolimus (PROGRAF) 0.5 mg capsule Take 2 capsules (1 mg total) by mouth 2 (two) times a day. 360 capsule 3 ??? torsemide (DEMADEX) 10 mg tablet Take 3 tablets (30 mg total) by mouth daily. 270 tablet 3 ??? cholecalciferol (VITAMIN D3) 2,000 Unit tablet Take 1 tablet by mouth daily. ??? fluticasone propionate (FLONASE) 50 mcg/actuation nasal spray Administer 2 sprays into each nostril 2 (two) times a day. 64 g 11 ??? ipratropium (ATROVENT) 42 mcg (0.06 %) nasal spray Administer 2 sprays into affected nostril(s) 4 (four) times a day as needed for rhinitis. Maintenance ??? NIFEdipine XL (PROCARDIA XL) 30 mg 24 hr tablet Take 2 tablets (60 mg total) by mouth daily. 180tablet 3 ??? traZODone (DESYREL) 100 mg tablet Take 1 tablet by mouth at bedtime as needed for sleep. Maintenance No current facility-administered medications for this visit. OBJECTIVE VITAL SIGNS BP 146/80 Pulse 61 Temp 36.1 ??C Ht 180.7 cm Wt 80.8 kg BMI 24.75 kg/m?? Cardiovascular Rate and Rhythm: Normal rate [...] follows: Lab Results Component Value Date CREATININE 3.37 (H) 05/19/2020 BUN 62 (H) 05/19/2020 NA 138 05/19/2020 CL 99 05/19/2020 CO2 25 05/08/2018 US kidney with doppler (02/10/2018) 1. Right renal artery stenosis, likely not significant changed. 2. Widely patent left renal artery stent. 3. 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 ASSESSMENT / PLAN 1. Chronic kidney disease [...] 5. On immunosuppression - MMF, tacrolimus, and prednison 6. Microscopic hematuria His creatinine this visit was 3.4. GFR was 18 based on creatinine, and 14 based on cystatin C. His creatinine did increase from his baseline of 2.7 in January 2020. It is reasonable to keep torsemide 30mg daily as he might be overdiuresed while taking 20 mg BID in setting of calcineurin inhibitor use.However, his home and office blood pressure were elevated. He is on amlodipine 10 mg daily, and doxazosin 4 mg daily. He has worsening albuminuria, which might be due to uncontrolled blood pressure. I would like to add ACEI/ARB but will hold it until his creatinine is stable. For now, I will switch amlodipine to nifedipine 60 mg daily, and can increase to 90 mg daily to control blood pressure. He will have BMP checked and let me know his home blood pressure in 2 weeks. Plan to add losartan if blood pressure is still elevated and creatinine is stable. The target blood pressure was below 130/80. I will arranged for nurse visit in 6 weeks. US in 11/17/2019 showed renal artery stenosis at right proximal renal artery with lower velocities from previous US, and widely patent left renal artery stent. There is no indication for renal revascularization. CKD management - anemia; Hb 11.0. iron study is well repleted. No Need for JORGE L or iron therapy for now - metabolic acidosis; HCO3 > 22. 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 - lipid; on atorvastatin He is noted to have microscopic hematuria since 2018. I plan to do structural work-up, including cystoscopy and MRI without contrast (given advanced chronic kidney disease) but will defer until his blood pressure is controlled. He will see me again in 3 months Contact number: [phone] Espinoza Bailey M.D. NTER MACHINE JOINER Associated attestation - Nicole Peraza M.D. - 08/31/2020 3:56 PM CEMENTER MACHINE JOINER I reviewed this case with Dr. Espinoza Bailey. I did not meet Mr. Singh . I agree with the impression and plan recorded by Dr. Espinoza Bailey. documented in this encounter Miscellaneous Notes Addendum Note - Espinoza Bailey M.D. - 05/22/2020 4:00 PM CEMENTER MACHINE JOINER Addended by: ESPINOZA BAILEY on: 06/17/2020 10:50 AM Modules accepted: Orders NTER MACHINE JOINER documented in this encounter Plan of Treatment Upcoming Encounters Date Type Specialty Care Team Description 04/24/2022 Appointment Laboratory Medicine Angélica Granger P.A.-C. [address] [place] [phone] 04/25/2022 Office Visit Otorhinolaryngology Dex Matta APRN, C.N.P., M.S.N. [address] [place] [phone] 05/08/2022 Appointment Laboratory Medicine Angélica Granger P.A.-C. [address] [place] [phone] 05/08/2022 Clinical Admitting/Central Communication Scheduling 05/10/2022 Appointment Radiology Jeremie Rose M.D. [address] [place] [phone] 05/10/2022 Comprehensive Visit Orthopedic Surgery Warner Graves M.D. [address] [place] [phone] 05/22/2022 Appointment Laboratory Medicine Angélica Granger P.A.-C. [address] [place] [phone] 06/05/2022 Appointment Laboratory Medicine Angélica Granger P.A.-C. [address] [place] [phone] 06/19/2022 Appointment Laboratory Medicine Angélica Granger P.A.-C. [address] [place] [phone] 07/03/2022 Appointment Laboratory Medicine Angélica Granger P.A.-C. [address] [place] [phone] 07/17/2022 Appointment Laboratory Medicine Angélica Granger P.A.-C. [address] [place] [phone] 07/31/2022 Appointment Laboratory Medicine Angélica Granger P.A.-C. [address] [place] [phone] 08/14/2022 Appointment Laboratory Medicine Angélica Granger P.A.-C. [address] [place] [phone] 08/28/2022 Appointment Laboratory Medicine Angélica Granger P.A.-C. [address] [place] [phone] Scheduled Referrals Name Type Priority Associated Order Schedule Diagnoses Nephrology nurse Outpatient Referral Routine Expe cted: visit (clinic) 07/03/2020 (Approximate), Expires: 05/22/2023 Nephrology and Outpatient Referral Routine Expect ed: Hypertension office 08/20/19 visit (clinic) (Approximate) , Expires: 05/22/2023 documented as of this encounter Results 25-Hydroxyvitamin D2 and D3 (08/30/2020 8:58 AM CEMENTER MACHINE JOINER) athologist Signature 25-Hydroxy D2 <4.0 ng/mL 09/01/2020 SDS 11:48 PM CEMENTER MACHINE JOINER 25-Hydroxy D3 52 ng/mL 09/01/2020 SDSC 11:48 PM CEMENTER MACHINE JOINER 25-Hydroxy D 52 ng/mL 09/01/2020 [facility] Total 11:48 PM CEMENTER MACHINE JOINER Comment: Interpretation: 51-80 ng/mL (increased r isk [...] (Blood, 08/30/2020 8:58 AM 09/01/19 7:43 Venous) CEMENTER MACHINE JOINER AM CEMENTER MACHINE JOINER Espinoza Bailey M.D. LAB BLOOD ADD-ON Performing Organization Address City/State/ZIP Code Phon e Number [facility] [address] [place], [place] [address] [facility] [place] [address] Laboratory Medicine and Pathology [address] [place] (ABNORMAL) Parathyroid Hormone (PTH) (08/30/2020 8:58 AM CEMENTER MACHINE JOINER) P athologist Signature Parathyroid 83 (H) 15 - 65 08/30/2020 [place] Hormone (PTH), S pg/mL 6:22 PM CEMENTER MACHINE JOINER Comment: Biotin has been identified by the audrey bruton as a potential interfering substance. ??Higher concentr ations of biotin may be found in multivitamins, hair/nail supple ments, and workout supplements. ??If the result does not [facility] clinical observations, repeat testing after patient refrains fr om the use of supplements for at least 12 hours. Specimen Anatomical Collection Method Collection Time Receive d Time (Source) Location / / Volume Laterality Blood (Blood, 08/30/2020 8:58 AM 08/31/19 3:38 Venous) CEMENTER MACHINE JOINER PM CEMENTER MACHINE JOINER Espinoza Bailey M.D. LAB BLOOD ADD-ON Performing Organization Address City/Oss Health/ZIP Code Phon e Number [facility]- [address] [place] [address] [facility] [place] [address] [facility] [address] Ferritin (08/30/2020 8:58 AM CEMENTER MACHINE JOINER) P athologist Signature Ferritin, S 208 31 - 409 08/30/2020 [facility] mcg/L 10:54 AM CEMENTER MACHINE JOINER Comment: Biotin has been identified by the audrey burton as a potential interfering substance. ??Higher concentr ations of biotin may be found in multivitamins, hair/nail supple ments, and workout supplements. ??If the result does not [facility] clinical observations, repeat testing after patient refrains fr om the use of supplements for at least 12 hours. Specimen Anatomical Collection Method Collection Time Receive d Time (Source) Location / / Volume Laterality Blood (Blood, 08/30/2020 8:58 AM 08/31/19 21 Venous) CEMENTER MACHINE JOINER 10:28 AM CEMENTER MACHINE JOINER Espinoza Bailey M.D. LAB BLOOD ADD-ON Performing Organization Address City/State/ZIP Code Phon e Number [facility] [address] [place] [address] [facility] [address] System in [place] [address] (ABNORMAL) Iron and Total Iron-Binding Capacity (08/30/2020 8:58 AM CEMENTER MACHINE JOINER) P athologist Signature Iron 57 50 - 150 08/30/2020 [place] mcg/dL 5:53 PM CEMENTER MACHINE JOINER Total Iron 231 (L) 250 - 400 08/30/2020 [place] Binding mcg/dL 5:53 PM CEMENTER MACHINE JOINER Capacity Percent 25 14 - 50 % 08/30/2020 [place] Saturation 5:53 PM CEMENTER MACHINE JOINER Specimen Anatomical Collection Method Collection Time Receive d Time (Source) Location / / Volume Laterality Blood (Blood, 08/30/2020 8:58 AM 08/31/19 3:38 Venous) CEMENTER MACHINE JOINER PM CEMENTER MACHINE JOINER Espinoza Bailey M.D. LAB BLOOD ADD-ON Performing Organization Address City/State/ZIP Code Phon e Number [facility]- [address] [place] [address] [facility] [place] [address] [facility] [address] (ABNORMAL) CBC with Differential, Blood (08/30/2020 8:58 AM CEMENTER MACHINE JOINER) [facility] gist Method Time Signature Hemoglobin 9.8 (L) 13.2 - 08/30/2020 FB60 16.6 g/dL 9:08 AM CEMENTER MACHINE JOINER Hematocrit 29.5 (L) 38.3 - 08/30/2020 FB60 48.6 % 9:08 AM CEMENTER MACHINE JOINER Erythrocytes 3.16 (L) 4.35 - 08/30/2020 FB60 5.65 9:08 AM CEMENTER MACHINE JOINER x10(12)/L MCV 93.4 78.2 - 08/30/2020 FB60 97.9 fL 9:08 AM CEMENTER MACHINE JOINER RBC Distrib Width 12.8 11.8 - 08/30/2020 FB60 14.5 % 9:08 AM CEMENTER MACHINE JOINER Platelet Count 223 135 - 317 08/30/2020 FB60 x10(9)/L 9:08 AM CEMENTER MACHINE JOINER Leukocytes 3.1 (L) 3.4 - 9.6 08/30/2020 FB60 x10(9)/L 9:08 AM CEMENTER MACHINE JOINER Neutrophils 1.82 1.56 - 08/30/2020 FB60 6.45 9:08 AM CEMENTER MACHINE JOINER x10(9)/L Lymphocytes 0.73 (L) 0.95 - 08/30/2020 FB60 3.07 9:08 AM CEMENTER MACHINE JOINER x10(9)/L Monocytes 0.43 0.26 - 08/30/2020 FB60 0.81 9:08 AM CEMENTER MACHINE JOINER x10(9)/L Eosinophils 0.08 0.03 - 08/30/2020 FB60 0.48 9:08 AM CEMENTER MACHINE JOINER x10(9)/L Basophils 0.01 0.01 - 08/30/2020 FB60 0.08 9:08 AM CEMENTER MACHINE JOINER x10(9)/L Specimen Anatomical Collection Method Collection Time Receive d Time (Source) Location / / Volume Laterality Blood (Blood, 08/30/2020 8:58 AM 08/31/19 9:00 Venous) CEMENTER MACHINE JOINER AM CEMENTER MACHINE JOINER Espinoza Bailey M.D. LAB BLOOD ADD-ON Performing Organization Address City/State/ZIP Code Phon e Number [facility]- [address] [place] [address] [facility] [address] [place] [address] [address] (ABNORMAL) Magnesium (08/30/2020 8:58 AM CEMENTER MACHINE JOINER) athologist Signature Magnesium, P 2.8 (H) 1.7 - 2.3 08/30/2020 [facility] mg/dL 10:53 AM CEMENTER MACHINE JOINER Specimen Anatomical Collection Method Collection Time Receive d Time (Source) Location / / Volume Laterality Blood (Blood, 08/30/2020 8:58 AM 08/31/19 Venous) CEMENTER MACHINE JOINER 10:28 AM CEMENTER MACHINE JOINER Espinoza Bailey M.D. LAB BLOOD ADD-ON Performing Organization Address City/State/ZIP Code Phon e Number [facility]- [address] [place] [address] [place] [address] System in [place] [address] [place] [address] Lipid Panel (08/30/2020 8:58 AM CEMENTER MACHINE JOINER) P athologist Signature Cholesterol, 152 mg/dL 08/30/2020 [facility] Total 10:53 AM CEMENTER MACHINE JOINER Comment: ----REFERENCE VALUE---- Desirable: < 200 Borderline high: 200 - 239 High: > or = 240 Triglycerides 149 mg/dL 08/30/2020 10:53 AM CEMENTER MACHINE JOINER OW AT Comment: ----REFERENCE VALUE---- Normal: <150 Borderline high: 150-199 High: 200-499 Very high: > or =500 Cholesterol, HDL 43 >=40 mg/dL 08/30/2020 10:53 AM CS T [facility] Calculated LDL 79 mg/dL 08/30/2020 10:53 AM CEMENTER MACHINE JOINER O YAO Comment: ----REFERENCE VALUE---- Desirable: <100 Above Desirable: 100-129 Borderline high: 130-159 High: 160-189 Very high: > or =190 Cholesterol, Non-HDL, Calculated 109 mg/dL 021 10:53 AM CEMENTER MACHINE JOINER [facility] Comment: ----REFERENCE VALUE---- Desirable: <130 Above Desirable: 130-159 Borderline high: 160-189 High: 190-219 Very high: > or =220 Specimen Anatomical Collection Method Collection Time Receive d Time (Source) Location / / Volume Laterality Blood (Blood, 08/30/2020 8:58 AM 08/31/19 21 Venous) CEMENTER MACHINE JOINER 10:28 AM CEMENTER MACHINE JOINER Espinoza Bailey M.D. LAB BLOOD ADD-ON Performing Organization Address City/State/ZIP Code Phon e Number [facility]- [address] [place] [address] [place] [address] System in [place] [address] [facility] (ABNORMAL) Albumin, Random, Urine (08/30/2020 8:58 AM CEMENTER MACHINE JOINER) [facility] gist Method Time Signature Microalbumin 728.0 mg/L 08/30/2020 [facility] 12:06 PM CEMENTER MACHINE JOINER Creatinine 67 mg/dL 08/30/2020 [place] 11:11 AM CEMENTER MACHINE JOINER Albumin/Creatinin 1087 (H) <17 mg/g 08/30/2020 [facility] e Ratio 12:06 PM CEMENTER MACHINE JOINER Specimen Anatomical Collection Method Collection Time Receive d Time (Source) Location / / Volume Laterality Urine (Urine, 08/30/2020 8:58 AM 08/31/19 21 Voided) CEMENTER MACHINE JOINER 10:28 AM CEMENTER MACHINE JOINER Espinoza Bailey M.D. LAB URINE ORDERABLES Performing Organization Address City/State/ZIP Code Phon e Number [facility]- [address] [facility] [place] [address] [place] [address] System in [place] [address] (ABNORMAL) Urinalysis with Microscopic: Urine, Voided (08/30/2020 8:58 AM CEMENTER MACHINE JOINER) P athologist Signature Source Midstream 08/30/2020 FB60 9:06 AM CEMENTER MACHINE JOINER Clarity Clear Clear 08/30/2020 FB60 9:16 AM CEMENTER MACHINE JOINER Color Yellow 08/30/2020 FB60 9:16 AM CEMENTER MACHINE JOINER Comment: ----REFERENCE VALUE---- Colorless Yellow Bhakti Blood Small (A) Negative 08/30/2020 9:16 AM CEMENTER MACHINE JOINER FB60 Nitrite Negative Negative 08/30/2020 9:16 AM CEMENTER MACHINE JOINER FB60 Leukocyte Esterase Negative Negative 08/30/2020 9:16 AM CS T FB60 Protein >=300 (A) mg/dL 08/30/2020 9:16 AM CEMENTER MACHINE JOINER FB60 Comment: ----REFERENCE VALUE---- Negative Trace Glucose Negative Negative mg/dL 08/30/2020 9:16 AM CEMENTER MACHINE JOINER FB 60 Ketones, QI(U) Negative Negative mg/dL 08/30/2020 9:[address] FB60 Bilirubin Negative Negative 08/30/2020 9:16 AM CEMENTER MACHINE JOINER FB60 pH 7.0 5.0 - 8.0 08/30/2020 9:16 AM CEMENTER MACHINE JOINER FB60 Specific [place] 1.015 1.001 - 1.035 08/30/2020 9:16 AM CEMENTER MACHINE JOINER FB60 Urobilinogen 0.2 0.2 - 1.0 mg/dL 08/30/2020 9:16 AM CS T FB60 White Blood Cells None Seen /hpf 08/30/2020 9:16 AM CEMENTER MACHINE JOINER FB60 Comment: ----REFERENCE VALUE---- Males: 0-3 Females: 0-10 Unknown: 0-10 Red Blood Cells Occ-2 0 - 2 /hpf 08/30/2020 9:16 AM CEMENTER MACHINE JOINER FB60 Specimen Anatomical Collection Method Collection Time Receive d Time (Source) Location / / Volume Laterality Urine (Urine, 08/30/2020 8:58 AM 08/31/19 9:02 Voided) CEMENTER MACHINE JOINER AM CEMENTER MACHINE JOINER Espinoza Bailey M.D. LAB URINE ORDERABLES Performing Organization Address City/State/ZIP Code Phon e Number [facility]- [address] [place] [address] [facility] [address] [place] [address] System in [place] [address] (ABNORMAL) Cystatin C with Estimated GFR, S (08/30/2020 8:58 AM CEMENTER MACHINE JOINER) P athologist Signature eGFR by 11 >60 08/31/2020 DAVE Cystatin C mL/min/BSA 7:48 AM CEMENTER MACHINE JOINER Comment: ----ADDITIONAL INFORMATION---- Cystatin C-based eGFR may differ substan tially from creatinine-based eGFR in patients with a bnormal muscle mass or acutely changing renal function. ??Pl ease interpret together with relevant clinical features. Cystatin C, S 4.39 (H) 0.77 - 1.42 mg/L 08/31/2020 7:48 AM CEMENTER MACHINE JOINER DAVE Specimen Anatomical Collection Method Collection Time Receive d Time (Source) Location / / Volume Laterality Blood (Blood, 08/30/2020 8:58 AM 09/01/19 7:07 Venous) CEMENTER MACHINE JOINER AM CEMENTER MACHINE JOINER Espinoza Bailey M.D. LAB BLOOD ADD-ON Performing Organization Address City/State/ZIP Code Phon e Number [facility] - [address] [place], [place] [address] [place] [address] [facility] [address] (ABNORMAL) Renal Function Panel (08/30/2020 8:58 AM CEMENTER MACHINE JOINER) Analysis Performed At Patho logist Time Signature Potassium, P 4.2 3.6 - 5.2 08/30/2020 [facility] mmol/L 10:53 AM CEMENTER MACHINE JOINER Sodium, P 136 135 - 145 08/30/2020 [facility] mmol/L 10:53 AM CEMENTER MACHINE JOINER Chloride, P 101 98 - 107 08/30/2020 [place] mmol/L 10:53 AM CEMENTER MACHINE JOINER Bicarbonate, P 26 22 - 29 08/30/2020 [facility] mmol/L 10:53 AM CEMENTER MACHINE JOINER Anion Gap, P 9 7 - 15 08/30/2020 [facility] 10:53 AM CEMENTER MACHINE JOINER BUN (Blood Urea 55 (H) 8 - 24 08/30/2020 [facility] Nitrogen), P mg/dL 10:53 AM CEMENTER MACHINE JOINER Creatinine 3.58 (H) 0.74 - 08/30/2020 [facility] 1.35 mg/dL 10:53 AM CEMENTER MACHINE JOINER eGFR-Black/Afri 19 (L) >=60 08/30/2020 [facility] can [place] mL/min/BSA 10:53 AM CEMENTER MACHINE JOINER Comment: ----ADDITIONAL INFORMATION---- Estimated GFR calculated using the 2009 CKD_EPI creatinine equation. eGFR Non-Black/ 17 (L) >=60 mL/min/BSA 08/30/2020 10:53 AM CEMENTER MACHINE JOINER [facility] [place] Comment: ----ADDITIONAL INFORMATION---- Estimated GFR calculated using the 2009 CKD_EPI creatinine equation. Calcium, Total, P 8.9 8.8 - 10.2 mg/dL 08/30/2020 10:5 3 AM CEMENTER MACHINE JOINER [facility] Glucose, P 119 70 - 140 mg/dL 08/30/2020 10:53 AM CEMENTER MACHINE JOINER [facility] Albumin, P 3.9 3.5 - 5.0 g/dL 08/30/2020 10:53 AM CEMENTER MACHINE JOINER [facility] Phosphorus (Inorganic), P 4.2 2.5 - 4.5 mg/dL 08/31/19 4:59 PM CEMENTER MACHINE JOINER AUST Specimen Anatomical Collection Method Collection Time Receive d Time (Source) Location / / Volume Laterality Blood (Blood, 08/30/2020 8:58 AM 08/31/19 21 Venous) CEMENTER MACHINE JOINER 10:28 AM CEMENTER MACHINE JOINER Narrative [facility] - 08/30/2020 4:59 PM CEMENTER MACHINE JOINER Specimen Information: Specimen ID: [id number] Specimen Type: Blood Specimen Collection Start Date: 08/31/19 ??8:58 AM Specimen Received Date: 08/30/2020 10:28 AM Specimen ID: [id number] Specimen Type: Blood Specimen Collection Start Date: 08/31/19 ??8:58 AM Specimen Received Date: 08/30/2020 ??3:3 8 PM Espinoza Bailey M.D. LAB BLOOD ADD-ON Performing Organization Address City/State/ZIP Code Phon e Number [facility] [address] [place] [address] [facility] [place] [address] System in [place] [address] [place] [address] [facility] [address] (ABNORMAL) Basic Metabolic Panel (06/29/2020 8:35 AM CEMENTER MACHINE JOINER) Analysis Performed At Patho logist Time Signature Potassium, P 3.9 3.6 - 5.2 06/29/2020 [place] mmol/L 10:53 AM CEMENTER MACHINE JOINER Sodium, P 137 135 - 145 06/29/2020 [place] mmol/L 10:53 AM CEMENTER MACHINE JOINER Chloride, P 101 98 - 107 06/29/2020 [place] mmol/L 10:53 AM CEMENTER MACHINE JOINER Bicarbonate, P 26 22 - 29 06/29/2020 [place] mmol/L 10:53 AM CEMENTER MACHINE JOINER Anion Gap, P 10 7 - 15 06/29/2020 [place] 10:53 AM CEMENTER MACHINE JOINER BUN (Blood Urea 53 (H) 8 - 24 06/29/2020 [place] Nitrogen), P mg/dL 10:53 AM CEMENTER MACHINE JOINER Creatinine 3.58 (H) 0.74 - 06/29/2020 [place] 1.35 mg/dL 10:53 AM CEMENTER MACHINE JOINER eGFR-Black/Afri 19 (L) >=60 06/29/2020 [place] can [place] mL/min/BSA 10:53 AM CEMENTER MACHINE JOINER Comment: ----ADDITIONAL INFORMATION---- Estimated GFR calculated using the 2009 CKD_EPI creatinine equation. eGFR Non-Black/ 17 (L) >=60 mL/min/BSA 06/29/2020 10:53 AM CEMENTER MACHINE JOINER OW[place] Comment: ----ADDITIONAL INFORMATION---- Estimated GFR calculated using the 2009 CKD_EPI creatinine equation. Calcium, Total, P 9.3 8.8 - 10.2 mg/dL 06/29/2020 10:5 3 AM CEMENTER MACHINE JOINER OWAT Glucose, P 108 70 - 140 mg/dL 06/29/2020 10:53 AM CEMENTER MACHINE JOINER OWAT Specimen Anatomical Collection Method Collection Time Receive d Time (Source) Location / / Volume Laterality Blood (Blood, 06/29/2020 8:35 AM 06/29/19 21 Venous) CEMENTER MACHINE JOINER 10:20 AM CEMENTER MACHINE JOINER Espinoza Bailey M.D. LAB BLOOD ADD-ON Performing Organization Address City/State/ZIP Code Phon e Number [facility] [address] [place] [address] [place] [address] System in [place] [address] (ABNORMAL) Albumin, Random, Urine (06/29/2020 8:34 AM CEMENTER MACHINE JOINER) Patholo gist Method Time Signature Microalbumin 834.0 mg/L 06/29/2020 [place] 11:35 AM CEMENTER MACHINE JOINER Creatinine 68 mg/dL 06/29/2020 OW[place] 11:14 AM CEMENTER MACHINE JOINER Albumin/Creatinin 1226 (H) <17 mg/g 06/29/2020 OWAT e Ratio 11:35 AM CEMENTER MACHINE JOINER Specimen Anatomical Collection Method Collection Time Receive d Time (Source) Location / / Volume Laterality Urine (Urine, 06/29/2020 8:34 AM 06/29/19 21 Voided) CEMENTER MACHINE JOINER 10:20 AM CEMENTER MACHINE JOINER Espinoza Bailey M.D. LAB URINE ORDERABLES Performing Organization Address City/State/ZIP Code Phon e Number [facility]- [address] [place] [address] [facility] [place] [address] System in [place] [address] (ABNORMAL) Urinalysis with Microscopic: Urine, Voided (06/29/2020 8:34 AM CEMENTER MACHINE JOINER) P athologist Signature Source Midstream 06/29/2020 FB60 9:15 AM CEMENTER MACHINE JOINER Clarity Clear Clear 06/29/2020 FB60 9:15 AM CEMENTER MACHINE JOINER Color Yellow 06/29/2020 FB60 9:15 AM CEMENTER MACHINE JOINER Comment: ----REFERENCE VALUE---- Colorless Yellow Bhakti Blood Small (A) Negative 06/29/2020 9:15 AM CEMENTER MACHINE JOINER FB60 Nitrite Negative Negative 06/29/2020 9:15 AM CEMENTER MACHINE JOINER FB60 Leukocyte Esterase Negative Negative 06/29/2020 9:15 AM CS T FB60 Protein >=300 (A) mg/dL 06/29/2020 9:15 AM CEMENTER MACHINE JOINER FB60 Comment: ----REFERENCE VALUE---- Negative Trace Glucose Negative Negative mg/dL 06/29/2020 9:15 AM CEMENTER MACHINE JOINER FB 60 Ketones, QI(U) Negative Negative mg/dL 06/29/2020 9:[address] FB60 Bilirubin Negative Negative 06/29/2020 9:15 AM CEMENTER MACHINE JOINER FB60 pH 7.0 5.0 - 8.0 06/29/2020 9:15 AM CEMENTER MACHINE JOINER FB60 Specific [place] 1.015 1.001 - 1.035 06/29/2020 9:15 AM CEMENTER MACHINE JOINER FB60 Urobilinogen 0.2 0.2 - 1.0 mg/dL 06/29/2020 9:15 AM CS T FB60 White Blood Cells None Seen /hpf 06/29/2020 9:18 AM CEMENTER MACHINE JOINER FB60 Comment: ----REFERENCE VALUE---- Males: 0-3 Females: 0-10 Unknown: 0-10 Red Blood Cells Occ-2 0 - 2 /hpf 06/29/2020 9:18 AM CEMENTER MACHINE JOINER FB60 Dysmorphic Red Blood Cells <=25 <=25 % 06/29/2020 9: 18 AM CEMENTER MACHINE JOINER FB60 Specimen Anatomical Collection Method Collection Time Receive d Time (Source) Location / / Volume Laterality Urine (Urine, 06/29/2020 8:34 AM 06/29/19 8:51 Voided) CEMENTER MACHINE JOINER AM CEMENTER MACHINE JOINER Espinoza Bailey M.D. LAB URINE ORDERABLES Performing Organization Address City/State/ZIP Code Phon e Number [address] [place] [address] [facility] [place] [address] documented in this encounter Visit Diagnoses Diagnosis Hypertension And Chronic Kidney Disease Stage 4 (HCC) - Primary Hypertension And Chronic Kidney Disease Stage 4 (HCC) documented in this encounter Additional Health Concerns Infection Onset Date Last Indicated Resolved Time COVID19 Pending 06/01/2020 06/02/2020 06/02/2020 9:38 PM CEMENTER MACHINE JOINER COVID19 Pending 08/24/2020 08/25/2020 08/26/2020 3:21 AM CEMENTER MACHINE JOINER Assessment Noted Time PHQ-9 Depression Total Score: 3 11/22/2019 7:34 AM CDT documented as of this encounter Care Teams Charter Boat Captain Relationship Specialty Start Date End Date Elsewhere, Pcp PCP - General Family Medicine 07/29/17 [facility] - Laboratory Medicine 04/12/[address] [address] documented as of this encounter
--- OUTSIDE RECORDS SUMMARY | 2022-04-13 12:24 | XMS_ITS | Encounter Summary ---
:1955 Author Organization [facility] Address [address] [place] [address] Care Team Providers Name Role Phone Elsewhere, Pcp Primary Care Provider Unavailable Reason for Visit Appointment Request (Routine) - Closed Specialty Diagnoses / Procedures Referred By Contact Refer red To Contact Dermatology Diagnoses Lesion Skin Referral ID Status Reason Start Date Expiration Date Visits Requ ested Visits Authorized [id number] Closed 05/29/2020 05/29/2021 1 1 Encounter Details Date Type Department Care Team Description 06/06/2020 Comprehensive Visit Department of Stuart Aguila is Seborrheic Dermatology in [place], [place]. 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 - 06/06/2020 9:20 AM CST SUBJECTIVE CHIEF COMPLAINT / REASON FOR VISIT Spot check HISTORY OF PRESENT ILLNESS Bruce Singh is a 64 y.o. male with history of nonmelanoma skin cancer who was recently seen in General Dermatology 2 2 weeks ago for a full body skin exam. He notes that several lesions that were frozen have recurred and he would like them re-examined since 1 of them itches. The following portions of the patient's history were reviewed and updated as appropriate: allergies,current medications, family history, medical history, social history, surgical history and problem list. Skin: Positive for change in mole or skin spot. ENT: Positive for sinus congestion. Respiratory: Positive for coughing up mucus (phlegm). Cardiovascular: Positive for swelling in the legs or feet. Hematologic: Positive for bruises or bleeds easily. The following systems were negative: Constitutional, Eyes, GI, , Musculoskeletal, Neuro, Psych The patient feels well. Denies any weight loss, fevers or recent changes in his state of health. OBJECTIVE PHYSICAL EXAM Problem-Focused Exam: General: Awake, alert, in no acute distress, and with appropriate affect. Skin: I have examined the chest, abdomen, back, face On the trunk are several stuck on brown papules with surrounding erythema/bruising consistent with persistent inflamed seborrheic keratoses ASSESSMENT / PLAN #1 Inflamed seborrheic keratoses Seborrheic keratoses are benign acanthotic epidermal neoplasms, and are commonly seen in areas of friction or sun exposure. They commonly run in families, and can appear anywhere on the skin other thanthe palms or soles. Treatment is reserved for lesions that are symptomatic or impaired function. Thepatient was reassured, and told to expect that he will likely develop more of these lesions over thecourse of his life. Treatment of 3 lesions, located on the chest and abdomen, is indicated for physical evidence of inflammation. After discussion of the risks benefits and alternatives to treatment with cryotherapy, informed consent was obtained. Lesions were treated with two 20-second freeze-thaw cycles of liquid nitrogen cryotherapy. The patient tolerated the procedure well. Aftercare instructions were provided in written and verbal form to the patient. Given the patient's ongoing immunosuppression for history of liver transplant, I recommended that henot self treat with [id number] cryotherapy due to the risk of superficially treating a skin cancer well leaving the deeper component untreated. This would increase the risk of subclinical growth or even spread of skin cancer, for which the patient is at high risk at baseline. CAID BILLING CLERK documented in this encounter Plan of Treatment Upcoming Encounters Date Type Specialty Care Team Description 04/24/2022 Appointment Laboratory Medicine Angélica Granger P.A.-C. [address] [place] [phone] 04/25/2022 Office Visit Otorhinolaryngology Dex Matta APRN, C.N.P., M.S.N. [address] [place] [phone] 05/08/2022 Appointment Laboratory Medicine Angélica Granger P.A.-C. [address] [place] [phone] 05/08/2022 Clinical Admitting/Central Communication Scheduling 05/10/2022 Appointment Radiology Jeremie Rose M.D. [address] [place] [phone] 05/10/2022 Comprehensive Visit Orthopedic Surgery Warner Graves M.D. [address] [place] [phone] 05/22/2022 Appointment Laboratory Medicine Angélica Granger P.A.-C. [address] [place] [phone] 06/05/2022 Appointment Laboratory Medicine Angélica Granger P.A.-C. [address] [place] [phone] 06/19/2022 Appointment Laboratory Medicine Angéilca Granger P.A.-C. [address] [place] [phone] 07/03/2022 Appointment Laboratory Medicine Angélica Granger P.A.-C. [address] [place] [phone] 07/17/2022 Appointment Laboratory Medicine Angélica Granger P.A.-C. [address] [place] [phone] 07/31/2022 Appointment Laboratory Medicine Angélica Granger P.A.-C. [address] [place] [phone] 08/14/2022 Appointment Laboratory Medicine Angélica Granger P.A.-C. [address] [place] [phone] 08/28/2022 Appointment Laboratory Medicine Angélica Granger P.A.-C. [address] [place] [phone] documented as of this encounter Visit Diagnoses Diagnosis Keratosis Seborrheic Inflamed - Primary documented in this encounter Additional Health Concerns Assessment Noted Time PHQ-9 Depression Total Score: 3 11/22/2019 7:34 AM CDT documented as of this encounter Care Teams Machine Installer Relationship Specialty Start Date End Date Elsewhere, Pcp PCP - General Family Medicine 07/29/17 [facility] - Laboratory Medicine 04/12/[address] [address] documented as of this encounter
--- OUTSIDE RECORDS SUMMARY | 2022-04-13 12:24 | XMS_ITS | Encounter Summary ---
:1955 Author Organization [facility] Address [address] [place] [address] Care Team Providers Name Role Phone Elsewhere, Pcp Primary Care Provider Unavailable Encounter Details Date Type Department Care Team Description 05/24/2020 Orders Only Pharmacy Prior Auth RO Elsewhere, Pcp [phone] Social History Tobacco Use Types Packs/Day Years [...] at Date Recorded Male 05/16/2020 4:27 PM MIS MANAGER documented as 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 [address] [place] [phone] 04/25/2022 Office Visit Otorhinolaryngology Dex Matta APRN, C.N.P., M.S.N. [address] [place] [phone] 05/08/2022 Appointment Laboratory Medicine Angélica Granger P.A.-CDemetrius [address] [place] [phone] 05/08/2022 Clinical Admitting/Central Communication Scheduling 05/10/2022 Appointment Radiology Jeremie Rose M.D. [address] [place] [phone] 05/10/2022 Comprehensive Visit Orthopedic Surgery Warner Graves M.D. [address] [place] [phone] 05/22/2022 Appointment Laboratory Medicine Angélica Granger P.A.-C. [address] [place] [phone] 06/05/2022 Appointment Laboratory Medicine Angélica Granger P.A.-C. [address] [place] [phone] 06/19/2022 Appointment Laboratory Medicine Angélica Granger P.A.-C. [address] [place] [address] [phone] 07/03/2022 Appointment Laboratory Medicine Angélica Granger P.A.-C. [address] [place] [phone] 07/17/2022 Appointment Laboratory Medicine Angélica Granger P.A.-C. [address] [place] [address] [phone] 07/31/2022 Appointment Laboratory Medicine Angélica Granger P.A.-C. [address] [place] [phone] 08/14/2022 Appointment Laboratory Medicine Angélica Granger P.A.-C. [address] [place] [phone] 08/28/2022 Appointment Laboratory Medicine Angélica Granger P.A.-C. [address] [place] [phone] documented as of this encounter Visit Diagnoses Not on filedocumented in this encounter Additional Health Concerns Infection Onset Date Last Indicated Resolved Time COVID19 Pending 06/01/2020 06/02/2020 06/02/2020 9:38 PM MIS MANAGER COVID19 Pending 08/24/2020 08/25/2020 08/26/2020 3:21 AM MIS MANAGER COVID19 Pending 10/19/2020 10/19/2020 10/19/2020 9:54 AM CDT COVID19 Pending 10/19/2020 10/19/2020 10/20/2020 11:57 AM CDT COVID19 Pending 10/30/2020 10/30/2020 10/30/2020 3:10 PM CDT COVID19 10/30/2020 10/30/2020 11/19/2020 4:45 AM CDT Assessment Noted Time PHQ-9 Depression Total Score: 3 11/22/2019 7:34 AM CDT documented as of this encounter Care Teams Door Closer Mechanic Relationship Specialty Start Date End Date Elsewhere, Pcp PCP - General Family Medicine 07/29/17 [facility] - Laboratory Medicine 04/12/[address] [address] documented as of this encounter
--- OUTSIDE RECORDS SUMMARY | 2022-04-13 12:24 | XMS_ITS | Encounter Summary ---
:1955 Author Organization [facility] Address [address] [place] [address] Care Team Providers Name Role Phone Elsewhere, Pcp Primary Care Provider Unavailable Encounter Details Date Type Department Care Team Description 05/19/2020 Hospital Encounter Department of [facility], Chronic Kidney Laboratory Medicine Sada Hobson Disease Stage [address] Filtration Rate [address] [phone] 15-29 ([facility]) [place], [place] [phone] (Work) [phone] Social History Tobacco Use Types Packs/Day Years [...] at Date Recorded Male 05/16/2020 4:27 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 Primary ipratropium (ATROVENT) Administer 2 sprays 0 10/0 07/201611/13/2020 42 mcg (0.06 %) nasal into affected spray nostril(s) 4 (four) times a day as needed for rhinitis. Maintenance levothyroxine TAKE 1 TABLET BY 90 tablet 3 12/01/201912/12 (SYNTHROID, LEVOTHROID) MOUTH EVERY MORNING 25 mcg tablet 30 MINUTES BEFORE BREAKFAST multivitamin tablet Take 1 tablet by 0 06/18/2013 10/12/2021 mouth daily. Maintenance amLODIPine (NORVASC) 10 Take 1 tablet (10 90 tablet 3 05/1705/22/2020 mg tabletIndications: mg total) by mouth Chronic Kidney Disease daily. Stage 4 Glomerular Filtration Rate 15-29 ([facility]) cholecalciferol (VITAMIN Take 1 capsule by 0 02/2105/24/2021 D3) 50 mcg (2,000 Unit) mouth daily. capsule fluticasone propionate Administer 1 spray 16 g 3 02/0605/23/2020 (Flonase Allergy Relief) into each nostril 50 mcg/actuation nasal daily as needed for sprayIndications: allergies. Transplant Liver ([facility]) glucosamine-chondroitin Take 4 capsules by 0 05/22/2020 (GLUCOSAMINE-CHONDROITIN mouth daily. ) 500-400 mg per capsule lamoTRIgine (LaMICtal) TAKE 1 TABLET BY 200 tablet 3 020 10/03/2020 200 mg tablet MOUTH TWICE DAILY mycophenolate (CELLCEPT) TAKE 1 TABLET BY 180 tablet 3 11/2111/06/2020 500 mg MOUTH TWICE DAILY tabletIndications: Transplant Liver ([facility]) predniSONE (DELTASONE) Take 1 tablet (10 15 tablet 0 201905/22/2020 10 mg tablet mg total) by mouth daily. predniSONE (DELTASONE) 5 Take 1 tablet (5 mg 90 tablet 3 07/20/2020 mg tabletIndications: total) by mouth Transplant Liver ([facility]), daily. Medication Therapy Penitentiary Not Anticoagulant tacrolimus (PROGRAF) 0.5 Take 2 capsules (1 360 capsule 3 07/20/2020 mg capsuleIndications: mg total) by mouth Transplant Liver ([facility]), 2 (two) times a Medication Therapy Long day. Term Not Anticoagulant torsemide (DEMADEX) 10 Take 2 tablets (20 360 tablet 3 04/2105/22/2020 mg tablet mg total) by mouth 2 (two) times a day. traZODone (DESYREL) 100 Take 1 tablet by 0 201610/12/2020 mg tablet mouth at bedtime as needed for sleep. Maintenance documented as 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 [address] [place] [phone] 04/25/2022 Office Visit Otorhinolaryngology Dex Matta APRN, C.N.P., M.S.N. [address] [place] [phone] 05/08/2022 Appointment Laboratory Medicine Angélica Granger P.A.-C. [address] [place] [phone] 05/08/2022 Clinical Admitting/Central Communication Scheduling 05/10/2022 Appointment Radiology Jeremie Rose M.D. [address] [place] [phone] 05/10/2022 Comprehensive Visit Orthopedic Surgery Warner Graves M.D. [address] [place] [phone] 05/22/2022 Appointment Laboratory Medicine Angélica Granger P.A.-C. [address] [place] [phone] 06/05/2022 Appointment Laboratory Medicine Angélica Granger P.A.-C. [address] [place] [phone] 06/19/2022 Appointment Laboratory Medicine Angélica Granger P.A.-C. [address] [place] [phone] 07/03/2022 Appointment Laboratory Medicine Angélica Granger P.A.-C. [address] [place] [phone] 07/17/2022 Appointment Laboratory Medicine Angélica Granger P.A.-C. [address] [place] [address] [phone] 07/31/2022 Appointment Laboratory Medicine Angélica Granger P.A.-C. [address] [place] [phone] 08/14/2022 Appointment Laboratory Medicine Angélica Granger P.A.-C. [address] [place] [phone] 08/28/2022 Appointment Laboratory Medicine Angélica Granger P.A.-C. [address] [place] [phone] documented as of this encounter Procedures Procedure Name Priority Date/Time Associated Comments Diagnosis ALBUMIN, RANDOM, U Routine 05/19/2020 9:29 AM Chronic Kidney R esults for this RETAIL PROPERTY MANAGER Disease Stage 4 procedure ar e in Glomerular the results Filtration Rate section. (HCC) URINALYSIS WITH Routine 05/19/2020 9:29 AM Chronic Kidney Resu lts for this MICROSCOPIC RETAIL PROPERTY MANAGER Disease Stage 4 procedure ar e in Glomerular the results Filtration Rate section. (HCC) documented in this encounter Results (ABNORMAL) Albumin, Random, Urine (05/19/2020 9:29 AM RETAIL PROPERTY MANAGER) [facility] Method Time Signature Microalbumin 1341.0 mg/L 05/19/2020 [place] 12:05 PM RETAIL PROPERTY MANAGER Creatinine 87 mg/dL 05/19/2020 [place] 11:01 AM RETAIL PROPERTY MANAGER Albumin/Creatinin 1541 (H) <17 mg/g 05/19/2020 [place] e Ratio 12:05 PM RETAIL PROPERTY MANAGER Specimen Anatomical Collection Method Collection Time Receive d Time (Source) Location / / Volume Laterality Urine (Urine, 05/19/2020 9:29 AM 05/19/20 20 Voided) RETAIL PROPERTY MANAGER 10:27 AM RETAIL PROPERTY MANAGER Joce Bailey M.D. LAB URINE ORDERABLES Performing Organization Address City/State/ZIP Code Phon e Number [facility]- [address] [place] [address] [facility] [place] [facility] [place] [address] System in [place] [address] (ABNORMAL) Urinalysis with Microscopic: Urine, Voided (05/19/2020 9:29 AM RETAIL PROPERTY MANAGER) P athologist Signature Source Void 05/19/2020 9:37 FB60 AM RETAIL PROPERTY MANAGER Clarity Clear Clear 05/19/2020 9:45 FB60 AM RETAIL PROPERTY MANAGER Color Yellow 05/19/2020 9:45 FB60 AM RETAIL PROPERTY MANAGER Comment: ----REFERENCE VALUE---- Colorless Yellow Bhakti Blood Small (A) Negative 05/19/2020 9:45 AM RETAIL PROPERTY MANAGER FB60 Nitrite Negative Negative 05/19/2020 9:45 AM RETAIL PROPERTY MANAGER FB60 Leukocyte Esterase Negative Negative 05/19/2020 9:45 AM CS T FB60 Protein >=300 (A) mg/dL 05/19/2020 9:45 AM RETAIL PROPERTY MANAGER FB60 Comment: ----REFERENCE VALUE---- Negative Trace Glucose Negative Negative mg/dL 05/19/2020 9:45 AM RETAIL PROPERTY MANAGER FB 60 Ketones, QI(U) Negative Negative mg/dL 05/19/2020 9:[address] FB60 Bilirubin Negative Negative 05/19/2020 9:45 AM RETAIL PROPERTY MANAGER FB60 pH 7.0 5.0 - 8.0 05/19/2020 9:45 AM RETAIL PROPERTY MANAGER FB60 Specific [place] 1.020 1.001 - 1.035 05/19/2020 9:45 AM RETAIL PROPERTY MANAGER FB60 Urobilinogen 0.2 0.2 - 1.0 mg/dL 05/19/2020 9:45 AM CS T FB60 White Blood Cells Occ-3 /hpf 05/19/2020 9:45 AM RETAIL PROPERTY MANAGER FB60 Comment: ----REFERENCE VALUE---- Males: 0-3 Females: 0-10 Unknown: 0-10 Red Blood Cells 3-10 (A) 0 - 2 /hpf 05/19/2020 9:45 AM RETAIL PROPERTY MANAGER FB60 Dysmorphic Red Blood Cells <=25 <=25 % 05/19/2020 9: 45 AM RETAIL PROPERTY MANAGER FB60 Specimen Anatomical Collection Method Collection Time Receive d Time (Source) Location / / Volume Laterality Urine (Urine, 05/19/2020 9:29 AM 05/19/20 20 9:29 Voided) RETAIL PROPERTY MANAGER AM RETAIL PROPERTY MANAGER Joce Bailey M.D. LAB URINE ORDERABLES Performing Organization Address City/State/ZIP Code Phon e Number [address] [place], [place] [id number] [place] [address] LAB [address] [place] [address] System [address] documented in this encounter Visit Diagnoses Diagnosis Chronic Kidney Disease Stage 4 Glomerula r Filtration Rate 15-29 (HCC) documented in this encounter Additional Health Concerns Assessment Noted Time PHQ-9 Depression Total Score: 3 11/22/2019 7:34 AM CDT documented as of this encounter Care Teams Supervisor Evaporator Relationship Specialty Start Date End Date Elsewhere, Pcp PCP - General Family Medicine 07/29/17 [facility] - Laboratory Medicine 04/12/20 [place] [address] documented as of this encounter
--- OUTSIDE RECORDS SUMMARY | 2022-04-13 12:24 | XMS_ITS | Encounter Summary ---
:1955 Author Organization [facility] Address [address] [place] [address] Care Team Providers Name Role Phone Elsewhere, Pcp Primary Care Provider Unavailable Reason for Referral Outpatient (Routine) - Closed Specialty Diagnoses / Procedures Referred By Contact Refer red To Contact Video Medicine Diagnoses Rhinosinusitis Chronic Avril Bright M.D. [facility] [address] [place], [place] [phone] Referral ID Status Reason Start Date Expiration Date Visits Requ ested Visits Authorized [id number] Closed 05/15/2020 05/15/2021 1 1 Scheduling Instructions immunocompromised and bothered by alexa alexander. Please schedule a video visit with either Dotty or Jessica. SHELLER Encounter Details Date Type Department Care Team Description 05/15/2020 Orders Only Department of Avril Bright Rhinosinusitis Chronic Otorhinolaryngology samm Cardenas M.D. 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 [address] [place] [address] [phone] 05/08/2022 Appointment Laboratory Medicine Angélica Granger P.A.-C. [address] [place] [address] [phone] 05/08/2022 Clinical Admitting/Central Communication Scheduling 05/10/2022 Appointment Radiology Jeremie Rose M.D. [address] [place] [phone] 05/10/2022 Comprehensive Visit Orthopedic Surgery Warner Graves M.D. [address] [place] [phone] 05/22/2022 Appointment Laboratory Medicine Angélica Granger P.A.-C. [address] [place] [phone] 06/05/2022 Appointment Laboratory Medicine Angélica Granger P.A.-C. [address] [place] [phone] 06/19/2022 Appointment Laboratory Medicine Angélica Granger P.A.-C. [address] [place] [phone] 07/03/2022 Appointment Laboratory Medicine Angélica Granger P.A.-C. [address] [place] [phone] 07/17/2022 Appointment Laboratory Medicine Angélica Granger P.A.-C. [address] [place] [phone] 07/31/2022 Appointment Laboratory Medicine Angélica Granger P.A.-C. [address] [place] [phone] 08/14/2022 Appointment Laboratory Medicine Angélica Granger P.A.-C. [address] [place] [phone] 08/28/2022 Appointment Laboratory Medicine Angélica Granger P.A.-C. [address] [place] [phone] Scheduled Referrals Name Type Priority Associated Diagnoses Order S chedule Video anyplace Outpatient Referral Routine Rhinosinusitis Final Assembly Inspector surinder Expected: visit 05/15/2020 (Approximate), Expires: 05/15/2023 documented as of this encounter Visit Diagnoses Diagnosis Rhinosinusitis Chronic - Primary documented in this encounter Additional Health Concerns Assessment Noted Time PHQ-9 Depression Total Score: 3 11/22/2019 7:34 AM CDT documented as of this encounter Care Teams Ship Design Teacher Relationship Specialty Start Date End Date Elsewhere, Pcp PCP - General Family Medicine 07/29/17 [facility] - Laboratory Medicine 04/12/[address] [address] documented as of this encounter
--- OUTSIDE RECORDS SUMMARY | 2022-04-13 12:24 | XMS_ITS | Encounter Summary ---
:1955 Author Organization [facility] Address [address] [place] [address] Care Team Providers Name Role Phone Elsewhere, Pcp Primary Care Provider Unavailable Encounter Details Date Type Department Care Team Description 05/25/2020 Orders Only Pharmacy Prior Auth Argelia Rodriguez I. 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 [address] [place] [phone] 04/25/2022 Office Visit Otorhinolaryngology Dex Matta APRN, C.N.P., M.S.N. [address] [place] [address] [phone] 05/08/2022 Appointment Laboratory Medicine Angélica Garnger P.A.-C. [address] [place] [address] [phone] 05/08/2022 Clinical Admitting/Central Communication Scheduling 05/10/2022 Appointment Radiology Jeremie Rose M.D. [address] [place] [phone] 05/10/2022 Comprehensive Visit Orthopedic Surgery Warner Graves M.D. [address] [place] [address] [phone] 05/22/2022 Appointment Laboratory Medicine Angélica Granger P.A.-C. [address] [place] [address] [phone] 06/05/2022 Appointment Laboratory Medicine Angélica Granger P.A.-C. [address] [place] [phone] 06/19/2022 Appointment Laboratory Medicine Angélica Granger P.A.-C. [address] [place] [phone] 07/03/2022 Appointment Laboratory Medicine Angélica Granger P.A.-C. [address] [place] [phone] 07/17/2022 Appointment Laboratory Medicine Angélica Granger P.A.-C. [address] [place] [phone] 07/31/2022 Appointment Laboratory Medicine Angélica Granger P.A.-C. [address] [place] [phone] 08/14/2022 Appointment Laboratory Medicine Angélica Granger P.A.-C. [address] [place] [address] [phone] 08/28/2022 Appointment Laboratory Medicine Angélica Granger P.A.-C. [address] [place] [phone] documented as of this encounter Visit Diagnoses Not on filedocumented in this encounter Additional Health Concerns Infection Onset Date Last Indicated Resolved Time COVID19 Pending 06/01/2020 06/02/2020 06/02/2020 9:38 PM CLIENT ACCOUNT REPRESENTATIVE Assessment Noted Time PHQ-9 Depression Total Score: 3 11/22/2019 7:34 AM CDT documented as of this encounter Care Teams Band Singer Relationship Specialty Start Date End Date Elsewhere, Pcp PCP - General Family Medicine 07/29/17 [facility] - Laboratory Medicine 04/12/[address] [address] documented as of this encounter
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
--- OUTSIDE RECORDS SUMMARY | 2022-04-13 12:24 | XMS_ITS | Encounter Summary ---
:1955 Author Organization [facility] Address [address] [place] [address] Care Team Providers Name Role Phone Elsewhere, Pcp Primary Care Provider Unavailable Reason for Visit Outpatient (Routine) - Modified Order Specialty Diagnoses / Procedures Referred By Contact Refer red To Contact Diagnoses Transplant Liver (HCC) Medication Therapy Car Bracer Not Anticoagulant Angélica Granger PDemetriusA.-CDemetrius [facility] Procedures FL Esophagram Double Contrast FL Esophagram Single Contrast [address] [place] [address] Referral ID Status Reason Start Date Expiration Date Visits V isits Requested Authorized [id number] Modified 02/02/2020 02/01/2021 1 1 Order Encounter Details Date Type Department Care Team Description 05/22/2020 Hospital Encounter Department of Angélica Granger Transpl ant Liver (HCC); Radiology, Andreea Ross-CDemetrius Medication Therapy Half-Way Not Anticoa [place], [place] [address] [place] [address] [place] [phone] [place], [place] [phone] (Work) [phone] Social History Tobacco Use Types Packs/Day Years [...] 12/15/2021 organizations such as baptist groups, unions, fraCloudmach or athletic groups, or school groups? 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 Transplant Liver (HCC) lamoTRIgine (LaMICtal) TAKE 1 TABLET BY 200 tablet 3 020 10/03/2020 200 mg tablet MOUTH TWICE DAILY mycophenolate (CELLCEPT) TAKE 1 TABLET BY 180 tablet 3 11/2111/06/2020 500 mg MOUTH TWICE DAILY tabletIndications: Transplant Liver (HCC) NIFEdipine XL (PROCARDIA Take 2 tablets (60 180 tablet 3 06/17/2020 XL) 30 mg 24 hr tablet mg total) by mouth daily. predniSONE (DELTASONE) 5 Take 1 tablet (5 mg 90 tablet 3 07/20/2020 mg tabletIndications: total) by mouth Transplant Liver ([facility]), daily. Medication Therapy Car Bracer Not Anticoagulant tacrolimus (PROGRAF) 0.5 Take 2 capsules (1 360 capsule 3 07/20/2020 mg capsuleIndications: mg total) by mouth Transplant Liver ([facility]), 2 (two) times a Medication Therapy Long day. Term Not Anticoagulant traZODone (DESYREL) 100 Take 1 tablet by 0 201610/12/2020 mg tablet mouth at bedtime as needed for sleep. Maintenance documented as 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 [address] [place] [phone] 04/25/2022 Office Visit Otorhinolaryngology Dex Matta APRN, C.N.P., M.S.N. [address] [place] [phone] 05/08/2022 Appointment Laboratory Medicine Angélica Granger P.A.-CDemetrius [address] [place] [phone] 05/08/2022 Clinical Admitting/Central Communication Scheduling 05/10/2022 Appointment Radiology Jeremie Rose M.D. [address] [place] [phone] 05/10/2022 Comprehensive Visit Orthopedic Surgery Warner Graves M.D. [address] [place] [phone] 05/22/2022 Appointment Laboratory Medicine Angélica Granger P.A.-C. [address] [place] [phone] 06/05/2022 Appointment Laboratory Medicine Angélica Granger P.A.-C. [address] [place] [phone] 06/19/2022 Appointment Laboratory Medicine Angélica Granger P.A.-C. [address] [place] [phone] 07/03/2022 Appointment Laboratory Medicine Angélica Granger P.A.-C. [address] [place] [phone] 07/17/2022 Appointment Laboratory Medicine Angélica Granger P.A.-C. [address] [place] [phone] 07/31/2022 Appointment Laboratory Medicine Angélica Granger P.A.-C. [address] [place] [phone] 08/14/2022 Appointment Laboratory Medicine Angélica Granger P.A.-C. [address] [place] [phone] 08/28/2022 Appointment Laboratory Medicine Angélica Granger P.A.-C. [address] [place] [phone] documented as of this encounter Procedures Procedure Name Priority Date/Time Associated Diagnosis Comme nts FL ESOPHAGRAM RAD - Routine 05/22/2020 2:56 Transplant Liver Result s for DOUBLE CONTRAST (most inpatients PM MORTISING MACHINE OPERATOR (HCC) this procedure and all Medication Therapy are in th e outpatients) Half-Way Not results Anticoagulant section. documented in this encounter Results FL Esophagram Double Contrast (05/22/2020 2:56 PM MORTISING MACHINE OPERATOR) Anatomical Region Laterality Modality Gastro Intestinal, Abdominal RST LOS, Abdominal ARZ Digital Radiography LOS, Abdominal FLA LOS Specimen (Source) Anatomical Collection Method Collection Time Re ceived Time Location / / Volume Laterality 05/22/2020 3:00 PM MORTISING MACHINE OPERATOR Impressions 05/22/2020 3:22 PM MORTISING MACHINE OPERATOR Mild proximal escape. Otherwise normal e sophagram. Narrative 05/22/2020 3:22 PM MORTISING MACHINE OPERATOR EXAM: ??FL ESOPHAGRAM DOUBLE CONTRAST COMPARISON: ??None FINDINGS: Normal caliber esophagus. Mild proximal escape, otherwise normal esophageal peristalsis. No gastroesophag eal reflux was witnessed during the exam. No hiatal hernia. Procedure Note Nithin Bearden M.D. - 05/22/2020 EXAM: FL ESOPHAGRAM DOUBLE CONTRAST COMPARISON: None FINDINGS: Normal caliber esophagus. Mild proximal escape, otherwise normal esophageal peristalsis. No gastroesophag eal reflux was witnessed during the exam. No hiatal hernia. IMPRESSION: Mild proximal escape. Otherwise normal e sophagram. Angélica Granger P.A.-C. IMAutumn FLUOROSCOPY PROCEDURES documented in this encounter Visit Diagnoses Diagnosis Transplant Liver (HCC) Medication Therapy Car Bracer Not Anticoa gulant documented in this encounter Administered Medications Inactive Administered Medications - up to 3 most recent administrations Medication Order MAR Action Action Date Dose Rate Site barium 60 % (w/v) suspension Given 05/22/2020 2:58 PM MORTISING MACHINE OPERATOR 175 mL (LIQUID E-Z-PAQUE) Code/trauma/sedation medication, Starting on Fri05/22/20 at 1458 barium 98 % oral powder for suspension Given 05/22/2020 2:57 PM MORTISING MACHINE OPERATOR 135 mL (E-Z-HD) Code/trauma/sedation medication, Starting on Fri05/22/20 at 1457 sodium bicarbonate-citric acid-simethicone Given 05/22 2:58 PM MORTISING MACHINE OPERATOR 1 packet effervescent packet (E-Z -GAS) oral, Code/trauma/sedation medication, Starting on Fri05/22/20 at 1458 documented in this encounter Additional Health Concerns Assessment Noted Time PHQ-9 Depression Total Score: 3 11/22/2019 7:34 AM CDT documented as of this encounter Care Teams Physiatrist Relationship Specialty Start Date End Date Elsewhere, Pcp PCP - General Family Medicine 07/29/17 [facility] - Laboratory Medicine 04/12/20 [place] [address] documented as of this encounter
--- OUTSIDE RECORDS SUMMARY | 2022-04-13 12:24 | XMS_ITS | Encounter Summary ---
:1955 Author Organization [facility] Address [address] [place] [address] Care Team Providers Name Role Phone Elsewhere, Pcp Primary Care Provider Unavailable Encounter Details Date Type Department Care Team Description 05/19/2020 Hospital Encounter Department of [facility], Chronic Kidney Laboratory Medicine Sada Hobson Disease Stage [address] Filtration Rate [address] [phone] 15-29 ([facility]) [place], [place] [phone] (Work) [phone] Social History Tobacco Use Types Packs/Day Years [...] at Date Recorded Male 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 Stage 4 Glomerular Filtration Rate 15-29 ([facility]) cholecalciferol (VITAMIN Take 1 capsule by 0 02/2105/24/2021 D3) 50 mcg (2,000 Unit) mouth daily. capsule fluticasone propionate Administer 1 spray 16 g 3 02/0605/23/2020 (Flonase Allergy Relief) into each nostril 50 mcg/actuation nasal daily as needed for sprayIndications: allergies. Transplant Liver ([facility]) glucosamine-chondroitin Take 4 capsules by 0 05/22/2020 (GLUCOSAMINE-CHONDROITIN mouth daily. ) 500-400 mg per capsule lamoTRIgine (LaMICtal) TAKE 1 TABLET BY 200 tablet 3 020 10/03/2020 200 mg tablet MOUTH TWICE DAILY mycophenolate (CELLCEPT) TAKE 1 TABLET BY 180 tablet 3 11/2111/06/2020 500 mg MOUTH TWICE DAILY tabletIndications: Transplant Liver ([facility]) predniSONE (DELTASONE) Take 1 tablet (10 15 tablet 0 201905/22/2020 10 mg tablet mg total) by mouth daily. predniSONE (DELTASONE) 5 Take 1 tablet (5 mg 90 tablet 3 07/20/2020 mg tabletIndications: total) by mouth Transplant Liver ([facility]), daily. Medication Therapy Snf Not Anticoagulant tacrolimus (PROGRAF) 0.5 Take 2 capsules (1 360 capsule 3 07/20/2020 mg capsuleIndications: mg total) by mouth Transplant Liver ([facility]), 2 (two) times a Medication Therapy Long [...] Laboratory Medicine Angélica Granger P.A.-C. [address] [place] [phone] 04/25/2022 Office Visit Otorhinolaryngology Dex Matta APRN, C.N.P., M.S.N. [address] [place] [phone] 05/08/2022 Appointment Laboratory Medicine Angélica Granger P.A.-C. [address] [place] [phone] 05/08/2022 Clinical Admitting/Central Communication Scheduling 05/10/2022 Appointment Radiology Jeremie Rose M.D. [address] [place] [phone] 05/10/2022 Comprehensive Visit Orthopedic Surgery Warner Graves M.D. [address] [place] [phone] 05/22/2022 Appointment Laboratory Medicine Angélica Granger P.A.-C. [address] [place] [phone] 06/05/2022 Appointment Laboratory Medicine Angélica Granger P.A.-C. [address] [place] [phone] 06/19/2022 Appointment Laboratory Medicine Angélica Granger P.A.-C. [address] [place] [phone] 07/03/2022 Appointment Laboratory Medicine Angélica Granger P.A.-C. [address] [place] [phone] 07/17/2022 Appointment Laboratory Medicine Angélica Granger P.A.-C. [address] [place] [phone] 07/31/2022 Appointment Laboratory Medicine Angélica Granger P.A.-C. [address] [place] [phone] 08/14/2022 Appointment Laboratory Medicine Angélica Granger P.A.-C. [address] [place] [phone] 08/28/2022 Appointment Laboratory Medicine Angélica Granger P.A.-C. [address] [place] [phone] documented as of this encounter Procedures Procedure Name Priority Date/Time Associated Diagnosis Comme nts RENAL FUNCTION Routine 05/19/2020 9:26 AM Chronic Kidney Resul ts for this PANEL, S AUTOMATIC MOUNTER Disease Stage 4 procedure ar e in Glomerular the results Filtration Rate section. ([facility]) CYSTATIN C WITH Routine 05/19/2020 9:26 AM Chronic Kidney Resu lts for this EGFR AUTOMATIC MOUNTER Disease Stage 4 procedure ar e in Glomerular the results Filtration Rate section. ([facility]) CBC WITH Routine 05/19/2020 9:26 AM Chronic Kidney Results for this DIFFERENTIAL, B AUTOMATIC MOUNTER Disease Stage 4 procedure are in Glomerular the results Filtration Rate section. ([facility]) MAGNESIUM, S Routine 05/19/2020 9:26 AM Chronic Kidney Results for this AUTOMATIC MOUNTER Disease Stage 4 procedure ar e in Glomerular the results Filtration Rate section. 15-29 (HCC) documented in this encounter Results (ABNORMAL) Magnesium (05/19/2020 9:26 AM AUTOMATIC MOUNTER) P athologist Signature Magnesium, P 3.0 (H) 1.7 - 2.3 05/19/2020 [place] mg/dL 10:49 AM AUTOMATIC MOUNTER Specimen Anatomical Collection Method Collection Time Receive d Time (Source) Location / / Volume Laterality Blood (Blood, 05/19/2020 9:26 AM 05/19/20 20 Venous) AUTOMATIC MOUNTER 10:27 AM AUTOMATIC MOUNTER Joce Bailey M.D. LAB BLOOD ADD-ON Performing Organization Address City/State/ZIP Code Phon e Number [facility]- [address] [place] [address] [facility] [place] [address] System in [place] [address] (ABNORMAL) CBC with Differential, Blood (05/19/2020 9:26 AM AUTOMATIC MOUNTER) Patholo gist Method Time Signature Hemoglobin 11.0 (L) 13.2 - 05/19/2020 FB60 16.6 g/dL 9:31 AM AUTOMATIC MOUNTER Hematocrit 32.1 (L) 38.3 - 05/19/2020 FB60 48.6 % 9:31 AM AUTOMATIC MOUNTER Erythrocytes 3.58 (L) 4.35 - 05/19/2020 FB60 5.65 9:31 AM AUTOMATIC MOUNTER x10(12)/L MCV 89.7 78.2 - 05/19/2020 FB60 97.9 fL 9:31 AM AUTOMATIC MOUNTER RBC Distrib Width 13.3 11.8 - 05/19/2020 FB60 14.5 % 9:31 AM AUTOMATIC MOUNTER Platelet Count 183 135 - 317 05/19/2020 [place] x10(9)/L 9:31 AM AUTOMATIC MOUNTER Leukocytes 3.3 (L) 3.4 - 9.6 05/19/2020 [place] x10(9)/L 9:31 AM AUTOMATIC MOUNTER Neutrophils 1.53 (L) 1.56 - 05/19/2020 FB60 6.45 9:31 AM AUTOMATIC MOUNTER x10(9)/L Lymphocytes 1.17 0.95 - 05/19/2020 FB60 3.07 9:31 AM AUTOMATIC MOUNTER x10(9)/L Monocytes 0.51 0.26 - 05/19/2020 FB60 0.81 9:31 AM AUTOMATIC MOUNTER x10(9)/L Eosinophils 0.07 0.03 - 05/19/2020 FB60 0.48 9:31 AM AUTOMATIC MOUNTER x10(9)/L Basophils 0.01 0.01 - 05/19/2020 FB60 0.08 9:31 AM AUTOMATIC MOUNTER x10(9)/L Specimen Anatomical Collection Method Collection Time Receive d Time (Source) Location / / Volume Laterality Blood (Blood, 05/19/2020 9:26 AM 05/19/20 20 9:27 Venous) AUTOMATIC MOUNTER AM AUTOMATIC MOUNTER Joce Bailey M.D. LAB BLOOD ADD-ON Performing Organization Address City/[facility] Code Phon e Number [facility]- [address] LAB [address] [place] [address] (ABNORMAL) Cystatin C with Estimated GFR, S (05/19/2020 9:26 AM AUTOMATIC MOUNTER) athologist Signature eGFR by 14 >60 05/20/2020 [place] Cystatin C mL/min/BSA 9:53 AM AUTOMATIC MOUNTER Comment: ----ADDITIONAL INFORMATION---- Cystatin C-based eGFR may differ substan tially from creatinine-based eGFR in patients with a bnormal muscle mass or acutely changing renal function. ??Pl ease interpret together with relevant clinical features. Cystatin C, S 3.56 (H) 0.77 - 1.42 mg/L 05/20/2020 9:53 AM AUTOMATIC MOUNTER [place] Specimen Anatomical Collection Method Collection Time Receive d Time (Source) Location / / Volume Laterality Blood (Blood, 05/19/2020 9:26 AM 05/20/20 20 7:58 Venous) AUTOMATIC MOUNTER AM AUTOMATIC MOUNTER Joce Bailey M.D. LAB BLOOD ADD-ON Performing Organization Address City/State/ZIP Code Phon e Number [facility] - [address] [place], [place] [address] [facility] [place] [address] [facility] [address] (ABNORMAL) Renal Function Panel (05/19/2020 9:26 AM AUTOMATIC MOUNTER) Analysis Performed At Patho logist Time Signature Potassium, P 3.9 3.6 - 5.2 05/19/2020 [place] mmol/L 10:49 AM AUTOMATIC MOUNTER Sodium, P 138 135 - 145 05/19/2020 [place] mmol/L 10:49 AM AUTOMATIC MOUNTER Chloride, P 99 98 - 107 05/19/2020 [place] mmol/L 10:49 AM AUTOMATIC MOUNTER Bicarbonate, P 27 22 - 29 05/19/2020 [place] mmol/L 10:49 AM AUTOMATIC MOUNTER Anion Gap, P 12 7 - 15 05/19/2020 [place] 10:49 AM AUTOMATIC MOUNTER BUN (Blood Urea 62 (H) 8 - 24 05/19/2020 [place] Nitrogen), P mg/dL 10:49 AM AUTOMATIC MOUNTER Creatinine 3.37 (H) 0.74 - 05/19/2020 [place] 1.35 mg/dL 10:49 AM AUTOMATIC MOUNTER eGFR-Black/Afri 21 (L) >=60 05/19/2020 [place] can [place] mL/min/BSA 10:49 AM AUTOMATIC MOUNTER Comment: ----ADDITIONAL INFORMATION---- Estimated GFR calculated using the 2009 CKD_EPI creatinine equation. eGFR Non-Black/ 18 (L) >=60 mL/min/BSA 05/19/2020 10:49 AM AUTOMATIC MOUNTER [place] Comment: ----ADDITIONAL INFORMATION---- Estimated GFR calculated using the 2009 CKD_EPI creatinine equation. Calcium, Total, P 8.8 8.8 - 10.2 mg/dL 05/19/2020 10:4 9 AM AUTOMATIC MOUNTER [place] Glucose, P 131 70 - 140 mg/dL 05/19/2020 10:49 AM AUTOMATIC MOUNTER [place] Albumin, P 4.0 3.5 - 5.0 g/dL 05/19/2020 10:49 AM AUTOMATIC MOUNTER [place] Phosphorus (Inorganic), P 4.1 2.5 - 4.5 mg/dL 05/19/20 20 4:12 PM AUTOMATIC MOUNTER [place] Specimen Anatomical Collection Method Collection Time Receive d Time (Source) Location / / Volume Laterality Blood (Blood, 05/19/2020 9:26 AM 05/19/20 Venous) AUTOMATIC MOUNTER 10:27 AM AUTOMATIC MOUNTER Narrative [facility] - 05/19/2020 4:12 PM AUTOMATIC MOUNTER Specimen Information: Specimen ID: [id number] Specimen Type: Blood Specimen Collection Start Date: 020 ??9:26 AM Specimen Received Date: 05/19/2020 10:2 7 AM Specimen ID: [id number] Specimen Type: Blood Specimen Collection Start Date: 020 ??9:26 AM Specimen Received Date: 05/19/2020 ??3: 30 PM Joce Bailey M.D. LAB BLOOD ADD-ON Performing Organization Address City/State/ZIP Code Phon e Number [facility]- [address] [place], [place] [id number] [place] [address] [place] [address] System in [place] [address] [place] [address] [facility] [address] documented in this encounter Visit Diagnoses Diagnosis Chronic Kidney Disease Stage 4 Glomerula r Filtration Rate 15-29 (HCC) documented in this encounter Additional Health Concerns Assessment Noted Time PHQ-9 Depression Total Score: 3 11/22/2019 7:34 AM CDT documented as of this encounter Care Teams Special Delivery Carrier Relationship Specialty Start Date End Date Elsewhere, Pcp PCP - General Family Medicine 07/29/17 [facility] - Laboratory Medicine 04/12/20 [place] [phone] documented as of this encounter
--- OUTSIDE RECORDS SUMMARY | 2022-04-13 12:24 | XMS_ITS | Encounter Summary ---
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 [address] [place] [phone] 04/25/2022 Office Visit Otorhinolaryngology Dex Matta APRN, C.N.P., M.S.N. [address] [place] [phone] 05/08/2022 Appointment Laboratory Medicine Angélica Granger P.A.-C. [address] [place] [phone] 05/08/2022 Clinical Admitting/Central Communication Scheduling 05/10/2022 Appointment Radiology Jeremie Rose M.D. [address] [place] [phone] 05/10/2022 Comprehensive Visit Orthopedic Surgery Warner Graves M.D. [address] [place] [phone] 05/22/2022 Appointment Laboratory Medicine Angélica Granger P.A.-C. [address] [place] [phone] 06/05/2022 Appointment Laboratory Medicine Angélica Granger P.A.-C. [address] [place] [phone] 06/19/2022 Appointment Laboratory Medicine Angélica Granger P.A.-C. [address] [place] [phone] 07/03/2022 Appointment Laboratory Medicine Angélica Granger P.A.-C. [address] [place] [phone] 07/17/2022 Appointment Laboratory Medicine Angélica Granger P.A.-C. [address] [place] [phone] 07/31/2022 Appointment Laboratory Medicine Angélica Granger P.A.-C. [address] [place] [phone] 08/14/2022 Appointment Laboratory Medicine Angélica Granger P.A.-C. [address] [place] [phone] 08/28/2022 Appointment Laboratory Medicine Angélica Granger P.A.-C. [address] [place] [phone] documented as of this encounter Visit Diagnoses Not on filedocumented in this encounter Additional Health Concerns Assessment Noted Time PHQ-9 Depression Total Score: 3 11/22/2019 7:34 AM CDT documented as of this encounter Care Teams Respiratory Therapy Assistant Relationship Specialty Start Date End Date Elsewhere, Pcp PCP - General Family Medicine 07/29/17 [facility] - Laboratory Medicine 04/12/[address] [address] documented as of this encounter
--- OUTSIDE RECORDS SUMMARY | 2022-04-13 12:24 | XMS_ITS | Encounter Summary ---
:1955 Author Organization [facility] Address [address] [place] [address] Care Team Providers Name Role Phone Elsewhere, Pcp Primary Care Provider Unavailable Encounter Details Date Type Department Care Team Description 06/02/2020 Lab Department of [facility] For Screening Medicine, Steven [facility] Sada For Other Viral Diseases Building, in [address] [facility] (COVID-19) [place], [place] [address] [facility] [address] [place] [address] [phone] Social History Tobacco Use Types Packs/Day Years [...] at Date Recorded Male 05/16/2020 4:27 PM SHRINKER documented as of this encounter Plan of Treatment Upcoming Encounters Date Type Specialty Care Team Description 04/24/2022 Appointment Laboratory Medicine Angélica Granger, P.A.-C. [address] [place] [address] [phone] 04/25/2022 Office Visit Otorhinolaryngology Dex Matta, RAMONA, C.N.P., M.S.N. [address] [place] [phone] 05/08/2022 Appointment Laboratory Medicine Angélica Granger, P.A.-C. [address] [place] [phone] 05/08/2022 Clinical Admitting/Central Communication Scheduling 05/10/2022 Appointment Radiology Jeremie Rose M.D. [address] [place] [phone] 05/10/2022 Comprehensive Visit Orthopedic Surgery Warner Graves M.D. [address] [place] [address] [phone] 05/22/2022 Appointment Laboratory Medicine Angélica Granger P.A.-C. [address] [place] [phone] 06/05/2022 Appointment Laboratory Medicine Angélica Granger P.A.-C. [address] [place] [phone] 06/19/2022 Appointment Laboratory Medicine Angélica Granger P.A.-C. [address] [place] [phone] 07/03/2022 Appointment Laboratory Medicine Angélica Granger P.A.-C. [address] [place] [phone] 07/17/2022 Appointment Laboratory Medicine Angélica Granger P.A.-C. [address] [place] [phone] 07/31/2022 Appointment Laboratory Medicine Angélica Granger P.A.-C. [address] [place] [phone] 08/14/2022 Appointment Laboratory Medicine Angélica Granger P.A.-C. [address] [place] [phone] 08/28/2022 Appointment Laboratory Medicine Angélica Gragner P.A.-C. [address] [place] [phone] documented as of this encounter Procedures Procedure Name Priority Date/Time Associated Diagnosis Comme nts SARS CORONAVIRUS-2 Routine 06/02/2020 9:00 AM Encounter For Re sults for this RNA, V SHRINKER Screening For Other procedur e are in Viral Diseases the results (COVID-19) section. documented in this encounter Results SARS Coronavirus-2 RNA, V Asymptomatic (06/02/2020 9:00 AM SHRINKER) [facility] Method Time Signature SARS-CoV-2 Swab, 06/02/2020 MKTO Specimen Nasopharynx 9:37 PM SHRINKER Source SARS CoV-2 Undetected Undetected 06/02/2020 MKTO RNA, TMA 9:37 PM SHRINKER Comment: SARS-CoV-2 RNA absent. This result does not rule out COVID-19 in the patient, as the sensitivity of the test depends o n the timing of the specimen collection and the quality of the specim en. Result should be correlated with patient's history and clinical presentat ion. ----ADDITIONAL INFORMATION---- This test is performed using the Aptima SARS-CoV-2 assay ([employer] which has received Emergency Use Authori zation (EUA) by the U.S. Food and Drug Administration. Fact sheets for this Emergency Use Autho rization (EUA) assay can be found at the following links: For Healthcare Providers: https://www.fd a.gov/media/937754/download For Patients: https://www.fda.gov/media/ 340065/download Specimen Anatomical Collection Method Collection Time Receive d Time (Source) Location / / Volume Laterality Varies 06/02/2020 9:00 AM 0 3:52 (Nasopharynx) SHRINKER PM SHRINKER [facility] - GENERAL O CAMERABLES Performing Organization Address City/State/ZIP Code Phon e Number [facility]- [address] [place] [address] [place] [address] System in [address] documented in this encounter Visit Diagnoses Diagnosis Encounter For Screening For Other Viral Diseases (COVID-19) documented in this encounter Additional Health Concerns Infection Onset Date Last Indicated Resolved Time COVID19 Pending 06/01/2020 06/02/2020 06/02/2020 9:38 PM SHRINKER Assessment Noted Time PHQ-9 Depression Total Score: 3 11/22/2019 7:34 AM CDT documented as of this encounter Care Teams Senior Research Associate Relationship Specialty Start Date End Date Elsewhere, Pcp PCP - General Family Medicine 07/29/17 [facility] - Laboratory Medicine 04/12/20 [place] [phone] documented as of this encounter
--- OUTSIDE RECORDS SUMMARY | 2022-04-13 12:24 | XMS_ITS | Encounter Summary ---
:1955 Author Organization [facility] Address [address] [place] [address] Care Team Providers Name Role Phone Elsewhere, Pcp Primary Care Provider Unavailable Reason for Visit Reason Comments Appointment old order Encounter Details Date Type Department Care Team Description 05/05/2020 Clinical Curt Corral Appoin [facility] (old Communication Center for hLilia, order) Transplantation and R.N., Clinical Regeneration C.C.T.C. 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 - 05/05/2020 5:02 PM CST Will leave this up to Angélica. Lilia Rasheed FARMER Telephone Encounter - Rachelle Buckner - 05/05/2020 4:49 PM CST Angélica Granger ordered back on 02/02/2020 [facility] [place] [facility] be scheduled the same day.Does the patient still need this order? Please advise. Thank you FARMER documented in this encounter Plan of Treatment Upcoming Encounters Date Type Specialty Care Team Description 04/24/2022 Appointment Laboratory Medicine Angélica Granger P.A.-C. [address] [place] [address] 04/25/2022 Office Visit Otorhinolaryngology Dex Matta APRN CDemetriusNJuan Miguel, M.S.N. [address] [place] [phone] 05/08/2022 Appointment Laboratory Medicine Angélica Granger P.A.-C. [address] [place] [phone] 05/08/2022 Clinical Admitting/Central Communication Scheduling 05/10/2022 Appointment Radiology Jeremie Rose M.D. [address] [place] [address] [phone] 05/10/2022 Comprehensive Visit Orthopedic Surgery Warner Graves M.D. [address] [place] [phone] 05/22/2022 Appointment Laboratory Medicine Angélica Granger P.A.-C. [address] [place] [phone] 06/05/2022 Appointment Laboratory Medicine Angélica Granger P.A.-C. [address] [place] [phone] 06/19/2022 Appointment Laboratory Medicine Angélica Granger P.A.-C. [address] [place] [phone] 07/03/2022 Appointment Laboratory Medicine Angélica Granger P.A.-C. [address] [place] [phone] 07/17/2022 Appointment Laboratory Medicine Angélica Granger P.A.-C. [address] [place] [phone] 07/31/2022 Appointment Laboratory Medicine Angélica Granger P.A.-C. [address] [place] [phone] 08/14/2022 Appointment Laboratory Medicine Angélica Granger P.A.-C. [address] [place] [address] [phone] 08/28/2022 Appointment Laboratory Medicine Angélica Granger P.A.-C. [address] [place] [phone] documented as of this encounter Visit Diagnoses Not on filedocumented in this encounter Additional Health Concerns Assessment Noted Time PHQ-9 Depression Total Score: 3 11/22/2019 7:34 AM CDT documented as of this encounter Care Teams Groover And Turner Relationship Specialty Start Date End Date Elsewhere, Pcp PCP - General Family Medicine 07/29/[address] [facility] - Laboratory Medicine 04/12/20 [place] [phone] documented as of this encounter
--- OUTSIDE RECORDS SUMMARY | 2022-04-13 12:25 | XMS_ITS | Encounter Summary ---
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 He has a few questionable spots. Will he order a Dermconsult? He would like to schedule same day as nurse visit 05/04. Call patient back when done. Thank you. IC SPEAKING COACH documented in this encounter Plan of Treatment Upcoming Encounters Date Type Specialty Care Team Description 04/24/2022 Appointment Laboratory Medicine Angélica Granger P.ADemetrius-Janette [address] [place] [phone] 04/25/2022 Office Visit Otorhinolaryngology Dex Matta APRN, C.N.P., M.S.N. [address] [place] [phone] 05/08/2022 Appointment Laboratory Medicine Angélica Granger P.A.-CDemetrius [address] [place] [phone] 05/08/2022 Clinical Admitting/Central Communication Scheduling 05/10/2022 Appointment Radiology Jeremie Rose M.D. [address] [place] [phone] 05/10/2022 Comprehensive Visit Orthopedic Surgery Warner Graves M.D. [address] [place] [phone] 05/22/2022 Appointment Laboratory Medicine Angélica Granger P.A.-C. [address] [place] [phone] 06/05/2022 Appointment Laboratory Medicine Angélica Granger P.A.-C. [address] [place] [phone] 06/19/2022 Appointment Laboratory Medicine Angélica Granger P.A.-C. [address] [place] [phone] 07/03/2022 Appointment Laboratory Medicine Angélica Granger P.A.-C. [address] [place] [phone] 07/17/2022 Appointment Laboratory Medicine Angélica Granger P.A.-C. [address] [place] [phone] 07/31/2022 Appointment Laboratory Medicine Angélica Granger P.A.-C. [address] [place] [phone] 08/14/2022 Appointment Laboratory Medicine Angélica Granger P.A.-C. [address] [place] [phone] 08/28/2022 Appointment Laboratory Medicine Angélica Granger P.A.-C. [address] [place] [phone] documented as of this encounter Visit Diagnoses Not on filedocumented in this encounter Additional Health Concerns Assessment Noted Time PHQ-9 Depression Total Score: 3 11/22/2019 7:34 AM CDT documented as of this encounter Care Teams Analyst Competitive Intelligence Relationship Specialty Start Date End Date Elsewhere, Pcp PCP - General Family Medicine 07/29/17 [facility] - Laboratory Medicine 04/12/[address] [address] documented as of this encounter
--- OUTSIDE RECORDS SUMMARY | 2022-04-13 12:25 | XMS_ITS | Encounter Summary ---
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 [address] [place] [phone] 04/25/2022 Office Visit Otorhinolaryngology Dex Matta APRN, C.N.P., M.S.N. [address] [place] [phone] 05/08/2022 Appointment Laboratory Medicine Angélica Granger P.A.-C. [address] [place] [phone] 05/08/2022 Clinical Admitting/Central Communication Scheduling 05/10/2022 Appointment Radiology Jeremie Rose M.D. [address] [place] [phone] 05/10/2022 Comprehensive Visit Orthopedic Surgery Warner Graves M.D. [address] [place] [phone] 05/22/2022 Appointment Laboratory Medicine Angélica Granger P.A.-C. [address] [place] [address] [phone] 06/05/2022 Appointment Laboratory Medicine Angélica Granger P.A.-C. [address] [place] [address] [phone] 06/19/2022 Appointment Laboratory Medicine Angélica Granger P.A.-C. [address] [place] [phone] 07/03/2022 Appointment Laboratory Medicine Angélica Granger P.A.-C. [address] [place] [address] [phone] 07/17/2022 Appointment Laboratory Medicine Angélica Grnager P.A.-C. [address] [place] [address] [phone] 07/31/2022 Appointment Laboratory Medicine Angélica Granger P.A.-C. [address] [place] [phone] 08/14/2022 Appointment Laboratory Medicine Angélica Granger P.A.-C. [address] [place] [phone] 08/28/2022 Appointment Laboratory Medicine Angélica Granger P.A.-C. [address] [place] [address] [phone] documented as of this encounter Procedures Procedure Name Priority Date/Time Associated Comments Diagnosis DERMATOLOGY IMAGE Routine 05/04/2020 10:39 Result s for this EXAM AM MOLD STACKER procedure are i n the results section. documented in this encounter Results Chest 521-Dermatology Image Exam (05/04/2020 10:39 AM MOLD STACKER) Specimen (Source) Anatomical Collection Method Collection Time Re ceived Time Location / / Volume Laterality 05/04/2020 12:00 PM MOLD STACKER Narrative [facility] - 05/04/2020 10:39 AM MOLD STACKER This order has been created and auto-finalized [...] documented as of this encounter Care Teams Community Theater Actor Relationship Specialty Start Date End Date Elsewhere, Pcp PCP - General Family Medicine 07/29/17 [facility] - Laboratory Medicine 04/12/[address] [address] documented as of this encounter
--- OUTSIDE RECORDS SUMMARY | 2022-04-13 12:25 | XMS_ITS | Encounter Summary ---
:1955 Author Organization [facility] Address [address] [place] [address] Care Team Providers Name Role Phone Elsewhere, Pcp Primary Care Provider Unavailable Encounter Details Date Type Department Care Team Description 04/21/2020 Documentation Division of Nephrology and Leo, Hypertension in [place], Kavya house M.D. [place] [id number] 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 - 04/21/2020 4:54 PM CDT His home blood pressure is elevated up to 175/85 and 200/95 last night. His blood pressure was better today down to 150-160. He does not limit his salt intake and noted worsening leg swelling. He is onamlodipine 10 mg daily, torsemide 30 mg daily, and doxazosin 4 mg daily. I reviewed his blood test on 04/20. His creatine was 2.9, and potassium 4.0. given reported fluid overload, I will increase torsemide to 20 mg BID. Advise low salt diet. He should monitor blood pressure at home and see our RN with BMP in 2 weeks. documented in this encounter Plan of Treatment Upcoming Encounters Date Type Specialty Care Team Description 04/24/2022 Appointment Laboratory Medicine Angélica Granger P.A.-C. [address] [place] [phone] 04/25/2022 Office Visit Otorhinolaryngology Dex Matta APRN, C.N.P., M.S.N. [address] [place] [phone] 05/08/2022 Appointment Laboratory Medicine Angélica Granger P.A.-C. [address] [place] [phone] 05/08/2022 Clinical Admitting/Central Communication Scheduling 05/10/2022 Appointment Radiology Jeremie Rose M.D. [address] [place] [phone] 05/10/2022 Comprehensive Visit Orthopedic Surgery Warner Graves M.D. [address] [place] [phone] 05/22/2022 Appointment Laboratory Medicine Angélica Granger P.A.-C. [address] [place] [phone] 06/05/2022 Appointment Laboratory Medicine Angélica Granger P.A.-C. [address] [place] [phone] 06/19/2022 Appointment Laboratory Medicine Angélica Granger P.A.-C. [address] [place] [phone] 07/03/2022 Appointment Laboratory Medicine Angélica Granger P.A.-C. [address] [place] [phone] 07/17/2022 Appointment Laboratory Medicine Angélica Granger P.A.-C. [address] [place] [phone] 07/31/2022 Appointment Laboratory Medicine Angélica Granger P.A.-C. [address] [place] [phone] 08/14/2022 Appointment Laboratory Medicine Angélica Granger P.A.-C. [address] [place] [phone] 08/28/2022 Appointment Laboratory Medicine Angélica Granger P.A.-C. [address] [place] [phone] documented as of this encounter Visit Diagnoses Not on filedocumented in this encounter Additional Health Concerns Assessment Noted Time PHQ-9 Depression Total Score: 3 11/22/2019 7:34 AM CDT documented as of this encounter Care Teams Foreign Diplomat Relationship Specialty Start Date End Date Elsewhere, Pcp PCP - General Family Medicine 07/29/17 [facility] - Laboratory Medicine 04/12/[address] [address] documented as of this encounter
--- OUTSIDE RECORDS SUMMARY | 2022-04-13 12:25 | XMS_ITS | Encounter Summary ---
:1955 Author Organization [facility] Address [address] [place] [address] Care Team Providers Name Role Phone Elsewhere, Pcp Primary Care Provider Unavailable Reason for Referral Outpatient (Routine) - Closed Specialty Diagnoses / Procedures Referred By Contact Refer red To Contact Nephrology and [facility] Hypertension Sada Hobson [facility] [place] [address] Referral ID Status Reason Start Date Expiration Date Visits Requ ested Visits Authorized [id number] Closed 04/21/2020 04/21/2021 1 1 Scheduling Instructions Follow-up blood pressure after increase torsemide Encounter Details Date Type Department Care Team Description 04/21/2020 Orders Only Division of Nephrology Mike Bailey rtension And and Hypertension in Sada Hobson Chronic Kidney Disease [place] [id number] [facility] Stage 4 (HCC) (Primary [address] [place], [place] Dx) [place] [address] [phone] Social History Tobacco Use Types Packs/Day Years [...] at Date Recorded 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 [address] [place] [phone] 05/08/2022 Appointment Laboratory Medicine Angélica Granger P.A.-CDemetrius [address] [place] [phone] 05/08/2022 Clinical Admitting/Central Communication Scheduling 05/10/2022 Appointment Radiology Jeremie Rose M.D. [address] [place] [phone] 05/10/2022 Comprehensive Visit Orthopedic Surgery Warner Graves M.D. [address] [place] [phone] 05/22/2022 Appointment Laboratory Medicine Angélica Granger P.A.-C. [address] [place] [phone] 06/05/2022 Appointment Laboratory Medicine Angélica Granger P.A.-C. [address] [place] [phone] 06/19/2022 Appointment Laboratory Medicine Angélica Granger P.A.-C. [address] [place] [phone] 07/03/2022 Appointment Laboratory Medicine Angélica Granger P.A.-C. [address] [place] [phone] 07/17/2022 Appointment Laboratory Medicine Angélica Granger P.A.-C. [address] [place] [phone] 07/31/2022 Appointment Laboratory Medicine Angélica Granger P.A.-C. [address] [place] [phone] 08/14/2022 Appointment Laboratory Medicine Angélica Granger P.A.-C. [address] [place] [phone] 08/28/2022 Appointment Laboratory Medicine Angélica Granger P.A.-C. [address] [place] [address] Scheduled Referrals Name Type Priority Associated Order Schedule Diagnoses Nephrology nurse Outpatient Referral Routine Expe cted: visit (clinic) 05/05/2020 (Approximate), Expires: 04/21/2023 documented as of this encounter Visit Diagnoses Diagnosis Hypertension And Chronic Kidney Disease Stage 4 (HCC) - Primary documented in this encounter Additional Health Concerns Assessment Noted Time PHQ-9 Depression Total Score: 3 11/22/2019 7:34 AM CDT documented as of this encounter Care Teams Safety Analyst Relationship Specialty Start Date End Date Elsewhere, Pcp PCP - General Family Medicine 07/29/17 [facility] - Laboratory Medicine 04/12/[address] [address] documented as of this encounter
--- OUTSIDE RECORDS SUMMARY | 2022-04-13 12:25 | XMS_ITS | Encounter Summary ---
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 - 04/21/2020 3:49 PM CDT SUBJECTIVE CHIEF COMPLAINT / REASON FOR CALL High BP with headache ASSESSMENT BP's have been elevated for the past month. Daytime readings 175/85 last night BP was 200/95. He hasnot been making good food choices and decreased exercise. He does report having some fluid build up. Took 20 mg of torsemide and took a 3.125 mg pills of carvedilol. When waking it was 165/85 today. Hereports feeling more fatigued. He also checked labs yesterday which are available in Care Everywhere. PLAN Disposition/Recommendation: Notified Dr. Bailey, he will contact the patient. Information/Education: patient/caller able to teach back. Caller agreeable to plan of care: yes. The following references were used: nursing clinical judgement. Telephone Encounter - Yary Garcia - 04/21/2020 3:37 PM CDT Patient called and said his blood pressure has been quite elevated. Running in 175/85 range. However, last night it was 200/95 and he had a horrible headache. This morning it was in the 165/85 range and he is very, very fatigued. He would like to speak with someone. Thanks. documented in this encounter Plan of Treatment Upcoming Encounters Date Type Specialty Care Team Description 04/24/2022 Appointment Laboratory Medicine Angélica Granger P.A.-C. [address] [place] [phone] 04/25/2022 Office Visit Otorhinolaryngology Dex Matta APRN, C.N.P., M.S.N. [address] [place] [phone] 05/08/2022 Appointment Laboratory Medicine Angélica Granger P.A.-C. [address] [place] [phone] 05/08/2022 Clinical Admitting/Central Communication Scheduling 05/10/2022 Appointment Radiology Jeremie Rose M.D. [address] [place] [phone] 05/10/2022 Comprehensive Visit Orthopedic Surgery Warner Graves M.D. [address] [place] [phone] 05/22/2022 Appointment Laboratory Medicine Angélica Granger P.A.-C. [address] [place] [phone] 06/05/2022 Appointment Laboratory Medicine Angélica Granger P.A.-C. [address] [place] [phone] 06/19/2022 Appointment Laboratory Medicine Angélica Granger P.A.-C. [address] [place] [phone] 07/03/2022 Appointment Laboratory Medicine Angélica Granger P.A.-C. [address] [place] [phone] 07/17/2022 Appointment Laboratory Medicine Angélica Granger P.A.-C. [address] [place] [phone] 07/31/2022 Appointment Laboratory Medicine Angélica Granger P.A.-C. [address] [place] [phone] 08/14/2022 Appointment Laboratory Medicine Angélica Granger P.A.-C. [address] [place] [phone] 08/28/2022 Appointment Laboratory Medicine Angélica Granger P.A.-C. [address] [place] [phone] documented as of this encounter Visit Diagnoses Not on filedocumented in this encounter Additional Health Concerns Assessment Noted Time PHQ-9 Depression Total Score: 3 11/22/2019 7:34 AM CDT documented as of this encounter Care Teams Barratte Operator Relationship Specialty Start Date End Date Elsewhere, Pcp PCP - General Family Medicine 07/29/17 [facility] - Laboratory Medicine 04/12/[address] [address] documented as of this encounter
--- OUTSIDE RECORDS SUMMARY | 2022-04-13 12:25 | XMS_ITS | Encounter Summary ---
:1955 Author Organization [facility] Address [address] [place] [address] Care Team Providers Name Role Phone Elsewhere, Pcp Primary Care Provider Unavailable Encounter Details Date Type Department Care Team Description 02/02/2020 Orders Only Curt Goldberg, [place] splant Liver (HCC) (Primary Dx); Center for Lilia Azevedo R.N., Medication The rapy Assisted Not Anticoagulant Transplantation and C.C.T.C. 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 [address] [place] [phone] 04/25/2022 Office Visit Otorhinolaryngology Dex Matta APRN, C.N.P., M.S.N. [address] [place] [phone] 05/08/2022 Appointment Laboratory Medicine Angélica Granger P.A.-CDemetrius [address] [place] [phone] 05/08/2022 Clinical Admitting/Central Communication Scheduling 05/10/2022 Appointment Radiology Jeremie Rose M.D. [address] [place] [phone] 05/10/2022 Comprehensive Visit Orthopedic Surgery Warner Graves M.D. [address] [place] [phone] 05/22/2022 Appointment Laboratory Medicine Angélica Granger P.A.-CDemetrius [address] [place] [phone] 06/05/2022 Appointment Laboratory Medicine Angélica Granger P.A.-C. [address] [place] [phone] 06/19/2022 Appointment Laboratory Medicine Angélica Granger P.A.-C. [address] [place] [phone] 07/03/2022 Appointment Laboratory Medicine Angélica Granger P.A.-C. [address] [place] [phone] 07/17/2022 Appointment Laboratory Medicine Angélica Granger P.A.-C. [address] [place] [phone] 07/31/2022 Appointment Laboratory Medicine Angélica Granger P.A.-C. [address] [place] [phone] 08/14/2022 Appointment Laboratory Angélica Royal P.A.-C. [address] [place] [phone] 08/28/2022 Appointment Laboratory Medicine Angélica Granger P.A.-C. [address] [place] [phone] documented as of this encounter Visit Diagnoses Diagnosis Transplant Liver (HCC) - Primary Medication Therapy Health Manager Not Anticoa gulant documented in this encounter Additional Health Concerns Assessment Noted Time PHQ-9 Depression Total Score: 3 11/22/2019 7:34 AM CDT documented as of this encounter Care Teams Dough Molder Relationship Specialty Start Date End Date Elsewhere, Pcp PCP - General Family Medicine 07/29/17 documented as of this encounter
--- OUTSIDE RECORDS SUMMARY | 2022-04-13 12:25 | XMS_ITS | Encounter Summary ---
:1955 Author Organization [facility] Address [address] [place] [address] Care Team Providers Name Role Phone Elsewhere, Pcp Primary Care Provider Unavailable Reason for Visit Reason Comments Aspiration Encounter Details Date Type Department Care Team Description 02/02/2020 Clinical Communication Curt Bishop, Aspiration Center for Lilia Azevedo R.N., Transplantation and C.C.T.C. 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 - 02/02/2020 10:41 AM CDT I received a page from Trung Plasencia in infectious disease. He saw this patient today regarding what looks to be aspiration pneumonia. Trung believes that patient should undergo full workup in GI for aspirating. documented in this encounter Plan of Treatment Upcoming Encounters Date Type Specialty Care Team Description 04/24/2022 Appointment Laboratory Medicine Angélica Granger P.A.-C. [address] [place] [phone] 04/25/2022 Office Visit Otorhinolaryngology Dex Matta APRN, C.N.P., M.S.N. [address] [place] [phone] 05/08/2022 Appointment Laboratory Medicine Angélica Granger P.A.-C. [address] [place] [phone] 05/08/2022 Clinical Admitting/Central Communication Scheduling 05/10/2022 Appointment Radiology Jeremie Rose M.D. [address] [place] [phone] 05/10/2022 Comprehensive Visit Orthopedic Surgery Warner Graves M.D. [address] [place] [phone] 05/22/2022 Appointment Laboratory Medicine Angélica Granger P.A.-C. [address] [place] [phone] 06/05/2022 Appointment Laboratory Medicine Angélica Granger P.A.-C. [address] [place] [phone] 06/19/2022 Appointment Laboratory Medicine Angélica Granger P.A.-C. [address] [place] [phone] 07/03/2022 Appointment Laboratory Medicine Angélica Granger P.A.-C. [address] [place] [phone] 07/17/2022 Appointment Laboratory Medicine Angélica Granger P.A.-C. [address] [place] [phone] 07/31/2022 Appointment Laboratory Medicine Angélica Granger P.A.-C. [address] [place] [phone] 08/14/2022 Appointment Laboratory Medicine Angélica Granger P.A.-C. [address] [place] [phone] 08/28/2022 Appointment Laboratory Medicine Angélica Granger P.A.-C. [address] [place] [phone] documented as of this encounter Visit Diagnoses Not on filedocumented in this encounter Additional Health Concerns Assessment Noted Time PHQ-9 Depression Total Score: 3 11/22/2019 7:34 AM CDT documented as of this encounter Care Teams Catering Coordinator Relationship Specialty Start Date End Date Elsewhere, Pcp PCP - General Family Medicine 07/29/17 documented as of this encounter
--- OUTSIDE RECORDS SUMMARY | 2022-04-13 12:25 | XMS_ITS | Encounter Summary ---
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 - 03/17/2020 8:13 AM CDT Sent an online message to the patient that I refilled the prescription. Telephone Encounter - Ana Delaney - 03/17/2020 7:26 AM CDT Caller is: patient If not the patient, does the caller have authorization? Reason for call: Chief Complaint Patient presents with ??? Med Refill Pertinent Information: Pt called and said he needs a second prescription refilled. Please refill Doxazosin 4mg at earliest availability. He only has a few days left of this one. Kendall says that it is discontinued, pleaselet us know if you wish for him to continue on this medication. Thanks for all your help! Preferred Communication Method: [phone] (mobile) Patient pharmacy: [id number] [facility] [address] [place] [phone] Additional instructions: documented in this encounter Plan of Treatment Upcoming Encounters Date Type Specialty Care Team Description 04/24/2022 Appointment Laboratory Medicine Angélica Granger P.A.-C. [address] [place] [phone] 04/25/2022 Office Visit Otorhinolaryngology Dex Matta APRN C.N.P., M.S.N. [address] [place] [phone] 05/08/2022 Appointment Laboratory Medicine Angélica Granger P.A.-C. [address] [place] [phone] 05/08/2022 Clinical Admitting/Central Communication Scheduling 05/10/2022 Appointment Radiology Jeremie Rose M.D. [address] [place] [phone] 05/10/2022 Comprehensive Visit Orthopedic Surgery Warner Graves M.D. [address] [place] [phone] 05/22/2022 Appointment Laboratory Medicine Angélica Granger P.A.-C. [address] [place] [phone] 06/05/2022 Appointment Laboratory Medicine Angélica Granger P.A.-C. [address] [place] [phone] 06/19/2022 Appointment Laboratory Medicine Angélica Granger P.A.-C. [address] [place] [phone] 07/03/2022 Appointment Laboratory Medicine Angélica Granger P.A.-C. [address] [place] [phone] 07/17/2022 Appointment Laboratory Medicine Angélica Granger P.A.-C. [address] [place] [phone] 07/31/2022 Appointment Laboratory Medicine Angélica Granger P.A.-C. [address] [place] [phone] 08/14/2022 Appointment Laboratory Medicine Angélica Granger P.A.-C. [address] [place] [phone] 08/28/2022 Appointment Laboratory Medicine Angélica Granger P.A.-C. [address] [place] [phone] documented as of this encounter Visit Diagnoses Not on filedocumented in this encounter Additional Health Concerns Assessment Noted Time PHQ-9 Depression Total Score: 3 11/22/2019 7:34 AM CDT documented as of this encounter Care Teams Software Licensing Specialist Relationship Specialty Start Date End Date Elsewhere, Pcp PCP - General Family Medicine 07/29/17 documented as of this encounter
--- OUTSIDE RECORDS SUMMARY | 2022-04-13 12:25 | XMS_ITS | Encounter Summary ---
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 [address] [place] [phone] 04/25/2022 Office Visit Otorhinolaryngology Dex Matta APRN, C.N.P., M.S.N. [address] [place] [phone] 05/08/2022 Appointment Laboratory Medicine Angélica Granger P.A.-C. [address] [place] [phone] 05/08/2022 Clinical Admitting/Central Communication Scheduling 05/10/2022 Appointment Radiology Jeremie Rose M.D. [address] [place] [phone] 05/10/2022 Comprehensive Visit Orthopedic Surgery Warner Graves M.D. [address] [place] [phone] 05/22/2022 Appointment Laboratory Medicine Angélica Granger P.A.-C. [address] [place] [address] [phone] 06/05/2022 Appointment Laboratory Medicine Angélica Granger P.A.-C. [address] [place] [phone] 06/19/2022 Appointment Laboratory Medicine Angélica Granger P.A.-C. [address] [place] [phone] 07/03/2022 Appointment Laboratory Medicine Angélica Granger P.A.-C. [address] [place] [phone] 07/17/2022 Appointment Laboratory Medicine Angélica Granger P.A.-C. [address] [place] [address] [phone] 07/31/2022 Appointment Laboratory Medicine Angélica Granger P.A.-C. [address] [place] [phone] 08/14/2022 Appointment Laboratory Medicine Angélica Granger P.A.-C. [address] [place] [phone] 08/28/2022 Appointment Laboratory Medicine Angélica Granger P.A.-C. [address] [place] [address] [phone] documented as of this encounter Procedures Procedure Name Priority Date/Time Associated Comments Diagnosis DERMATOLOGY IMAGE Routine 05/04/2020 10:39 Result s for this EXAM AM GUN NUMBERER procedure are i n the results section. documented in this encounter Results Thigh-Dermatology Image Exam (05/04/2020 10:39 AM GUN NUMBERER) Specimen (Source) Anatomical Collection Method Collection Time Re ceived Time Location / / Volume Laterality 05/04/2020 12:00 PM GUN NUMBERER Narrative [facility] - 05/04/2020 10:39 AM GUN NUMBERER This order has been created and auto-finalized [...] documented as of this encounter Care Teams Hospitalist Physician Relationship Specialty Start Date End Date Elsewhere, Pcp PCP - General Family Medicine 07/29/17 [facility] - Laboratory Medicine 04/12/20 [place] [phone] documented as of this encounter
--- OUTSIDE RECORDS SUMMARY | 2022-04-13 12:25 | XMS_ITS | Encounter Summary ---
:1955 Author Organization [facility] Address [address] [place] [address] Care Team Providers Name Role Phone Elsewhere, Pcp Primary Care Provider Unavailable Encounter Details Date Type Department Care Team Description 05/02/2020 Hospital Encounter Department of [facility], Chronic Kidney Disease Stage 4 Glomerular Filtration Rate 15-29 (HCC); Laboratory Medicine Sada Hobson Hypertension And Chronic Kidney Disease Stage 4 (HCC) in [address] [place] [address] [place], [place] [phone] [address] (Work) [phone] Social History Tobacco Use Types Packs/Day Years [...] Date Recorded Male 05/16/2020 4:27 PM DOUBLE CUT SAWYER documented as of this encounter Medications at [...] by mouth daily. cholecalciferol (VITAMIN Take 1 tablet by 0 09/0311/13/2020 D3) 2,000 Unit tablet mouth daily. doxazosin (CARDURA) 4 mg Take 1 tablet (4 mg 90 tablet 3 03/05/2021 tabletIndications: total) by mouth Hypertension Essential daily. Primary ipratropium (ATROVENT) Administer 2 sprays 0 /07/201611/13/2020 42 mcg (0.06 %) nasal into affected spray nostril(s) 4 (four) times a day as needed for rhinitis. Maintenance levothyroxine TAKE 1 TABLET BY 90 tablet 3 12/01/201912/12 (SYNTHROID, LEVOTHROID) MOUTH EVERY MORNING 25 mcg tablet 30 MINUTES BEFORE BREAKFAST multivitamin tablet Take 1 tablet by 0 06/18/2013 10/12/2021 mouth daily. Maintenance albuterol inhaler Inhale 1-2 puffs 1 Inhaler 11 11/23/2019 1 07/04/2019 every 6 (six) hours as needed for wheezing or shortness of breath. amLODIPine (NORVASC) 10 TAKE 1 TABLET BY 90 tablet 3 201805/17/2020 mg tabletIndications: MOUTH DAILY Chronic Kidney Disease Stage 4 Glomerular Filtration Rate 15-29 ([facility]) aspirin [address] tablet Take 81 mg by mouth 0 05/04/2020 daily. CALCIUM-MAGNESIUM ORAL Take 2 capsules by 0 08/1905/04/2020 mouth 2 (two) times a day. 400mg calcium twice daily cholecalciferol (VITAMIN Take 1 capsule by 0 02/2105/24/2021 D3) 50 mcg (2,000 Unit) mouth daily. capsule fluticasone propionate Administer 1 spray 16 g 3 02/0605/23/2020 (Flonase Allergy Relief) into each nostril 50 mcg/actuation nasal daily as needed for sprayIndications: allergies. Transplant Liver ([facility]) glucosamine-chondroitin Take 4 capsules by 0 05/22/2020 (GLUCOSAMINE-CHONDROITIN mouth daily. ) 500-400 mg per capsule lamoTRIgine (LaMICtal) TAKE 1 TABLET BY 200 tablet 3 020 10/03/2020 200 mg tablet MOUTH TWICE DAILY mycophenolate (CELLCEPT) TAKE 1 TABLET BY 180 tablet 3 11/2111/06/2020 500 mg MOUTH TWICE DAILY tabletIndications: Transplant Liver ([facility]) predniSONE (DELTASONE) Take 1 tablet (10 15 tablet 0 201905/22/2020 10 mg tablet mg total) by mouth daily. predniSONE (DELTASONE) 5 Take 1 tablet (5 mg 90 tablet 3 07/20/2020 mg tabletIndications: total) by mouth Transplant Liver ([facility]), daily. Medication Therapy [facility] Not Anticoagulant tacrolimus (PROGRAF) 0.5 Take 2 [...] Laboratory Medicine Angélica Granger P.A.-C. [address] [place] [phone] 04/25/2022 Office Visit Otorhinolaryngology Dex Matta, COTTAGE SUPERVISOR, C.N.P., M.S.N. [address] [place] [phone] 05/08/2022 Appointment Laboratory Medicine Angélica Granger P.A.-CDemetrius [address] [place] [phone] 05/08/2022 Clinical Admitting/Central Communication Scheduling 05/10/2022 Appointment Radiology Jeremie Rose M.D. [address] [place] [phone] 05/10/2022 Comprehensive Visit Orthopedic Surgery Warner Graves M.D. [address] [place] [phone] 05/22/2022 Appointment Laboratory Medicine Angélica Granger P.A.-CDemetrius [address] [place] [phone] 06/05/2022 Appointment Laboratory Medicine Angélica Granger P.A.-C. [address] [place] [phone] 06/19/2022 Appointment Laboratory Medicine Angélica Granger P.A.-C. [address] [place] [phone] 07/03/2022 Appointment Laboratory Medicine Angélica Granger P.A.-C. [address] [place] [phone] 07/17/2022 Appointment Laboratory Medicine Angélica Granger P.A.-C. [address] [place] [phone] 07/31/2022 Appointment Laboratory Medicine Angélica Granger P.A.-C. [address] [place] [phone] 08/14/2022 Appointment Laboratory Medicine Angélica Granger P.A.-C. [address] [place] [phone] 08/28/2022 Appointment Laboratory Medicine Angélica Granger P.A.-C. [address] [place] [phone] documented as of this encounter Procedures Procedure Name Priority Date/Time Associated Comments Diagnosis LIPID PANEL, S Routine 05/02/2020 10:40 Chronic Kidney Results for this AM DOUBLE CUT SAWYER Disease Stage 4 procedure ar e in Glomerular the results Filtration Rate section. ([facility]) RENAL FUNCTION PANEL, Routine 05/02/2020 10:40 Chronic Kidney Results for this S AM DOUBLE CUT SAWYER Disease Stage 4 procedure ar e in Glomerular the results Filtration Rate section. ([facility]) CYSTATIN C WITH EGFR Routine 05/02/2020 10:40 Chronic Kidney R esults for this AM DOUBLE CUT SAWYER Disease Stage 4 procedure ar e in Glomerular the results Filtration Rate section. ([facility]) IRON AND TOT Routine 05/02/2020 10:40 Chronic Kidney Results f or this IRON-BINDING AM DOUBLE CUT SAWYER Disease Stage 4 procedure ar e in CAPACITY, S/P Glomerular the results Filtration Rate section. ([facility]) 25-HYDROXYVITAMIN D2 Routine 05/02/2020 10:40 Chronic Kidney R esults for this AND D3, S AM DOUBLE CUT SAWYER Disease Stage 4 procedure ar e in Glomerular the results Filtration Rate section. ([facility]) CBC WITH Routine 05/02/2020 10:40 Chronic Kidney Results f or this DIFFERENTIAL, B AM DOUBLE CUT SAWYER Disease Stage 4 procedure are in Glomerular the results Filtration Rate section. ([facility]) URIC ACID, S/P Routine 05/02/2020 10:40 Chronic Kidney Results for this AM DOUBLE CUT SAWYER Disease Stage 4 procedure ar e in Glomerular the results Filtration Rate section. ([facility]) PARATHYROID HORMONE Routine 05/02/2020 10:40 Chronic Kidney Re sults for this (PTH), S AM DOUBLE CUT SAWYER Disease Stage 4 procedure ar e in Glomerular the results Filtration Rate section. ([facility]) MAGNESIUM, S Routine 05/02/2020 10:40 Chronic Kidney Results f or this AM DOUBLE CUT SAWYER Disease Stage 4 procedure ar e in Glomerular the results Filtration Rate section. ([facility]) FERRITIN, S Routine 05/02/2020 10:40 Chronic Kidney Results f or this AM DOUBLE CUT SAWYER Disease Stage 4 procedure ar e in Glomerular the results Filtration Rate section. ([facility]) documented in this encounter Results 25-Hydroxyvitamin D2 and D3 (05/02/2020 10:40 AM DOUBLE CUT SAWYER) P athologist Signature 25-Hydroxy D2 <4.0 ng/mL 05/04/2020 SDSC 12:47 PM DOUBLE CUT SAWYER 25-Hydroxy D3 48 ng/mL 05/04/2020 SDSC 12:47 PM DOUBLE CUT SAWYER 25-Hydroxy D 48 ng/mL 05/04/2020 SDSC Total 12:47 PM DOUBLE CUT SAWYER Comment: ----REFERENCE VALUE---- 25-HYDROXY D TOTAL (D2+D3) Optimum level s in the healthy population are 20-50, patients with bone disease may benefit from higher levels within this r itzel. ----ADDITIONAL INFORMATION---- This test was developed and its performa nce characteristics determined by [facility] in a manner consistent with CLIA requirements. This test has not been cleared or approved by the U.S. Mer d and Drug Administration. Specimen Anatomical Collection Method Collection Time Receive d Time (Source) Location / / Volume Laterality Blood (Blood, 05/02/2020 10:40 05/03/2020 7:45 Venous) AM DOUBLE CUT SAWYER AM DOUBLE CUT SAWYER Joce Bailey M.D. LAB BLOOD ADD-ON Performing Organization Address City/State/ZIP Code Phon e Number [facility] [address] [address] [place] [address] [place] [address] Laboratory Medicine and Pathology [address] [place] [address] Dr. MURILLO (ABNORMAL) Uric Acid (05/02/2020 10:40 AM DOUBLE CUT SAWYER) P athologist Signature Uric Acid, P 8.7 (H) 3.7 - 8.0 05/02/2020 [facility] mg/dL 4:17 PM DOUBLE CUT SAWYER Specimen Anatomical Collection Method Collection Time Receive d Time (Source) Location / / Volume Laterality Blood (Blood, 05/02/2020 10:40 05/02/2020 4:04 Venous) AM DOUBLE CUT SAWYER PM DOUBLE CUT SAWYER Joce Bailey M.D. LAB BLOOD ADD-ON Performing Organization Address City/State/ZIP Code Phon e Number [facility]- [address] [place] [address] [facility] [place] [place] [id number] [place] [address] (ABNORMAL) Parathyroid Hormone (PTH) (05/02/2020 10:40 AM DOUBLE CUT SAWYER) Analysis Performed At Patho logist Time Signature Parathyroid 135 (H) 15 - 65 05/02/2020 AUST Hormone (PTH), S pg/mL 5:07 PM DOUBLE CUT SAWYER Comment: Biotin has been identified by the [...] Location / / Volume Laterality Blood (Blood, 05/02/2020 10:40 05/02/2020 4:04 Venous) AM DOUBLE CUT SAWYER PM DOUBLE CUT SAWYER Joce Bailey M.D. LAB BLOOD ADD-ON Performing Organization Address City/State/ZIP Code Phon e Number [facility]- [address] [place] [address] [facility] [place] [address] [facility] [address] (ABNORMAL) Magnesium (05/02/2020 10:40 AM DOUBLE CUT SAWYER) athologist Signature Magnesium, P 2.9 (H) 1.7 - 2.3 05/02/2020 [facility] mg/dL 2:28 PM DOUBLE CUT SAWYER Specimen Anatomical Collection Method Collection Time Receive d Time (Source) Location / / Volume Laterality Blood (Blood, 05/02/2020 10:40 05/02/2020 1:49 Venous) AM DOUBLE CUT SAWYER PM DOUBLE CUT SAWYER Joce Bailey M.D. LAB BLOOD ADD-ON Performing Organization Address City/[facility]/ZIP Code Phon e Number [facility]- [address] [place] [address] [place] [address] System in [place] [address] Lipid Panel (05/02/2020 10:40 AM DOUBLE CUT SAWYER) athologist Signature Cholesterol, 163 mg/dL 05/02/2020 [facility] Total 2:28 PM DOUBLE CUT SAWYER Comment: ----REFERENCE VALUE---- Desirable: < 200 Borderline high: 200 - 239 High: > or = 240 Triglycerides 145 mg/dL 05/02/2020 2:28 PM DOUBLE CUT SAWYER O[place] T Comment: ----REFERENCE VALUE---- Normal: <150 Borderline high: 150-199 High: 200-499 Very high: > or =500 Cholesterol, HDL 42 >=40 mg/dL 05/02/2020 2:28 PM DOUBLE CUT SAWYER [facility] Calculated LDL 92 mg/dL 05/02/2020 2:28 PM DOUBLE CUT SAWYER OW AT Comment: ----REFERENCE VALUE---- Desirable: <100 Above Desirable: 100-129 Borderline high: 130-159 High: 160-189 Very high: > or =190 Cholesterol, Non-HDL, Calculated 121 mg/dL 020 2:28 PM DOUBLE CUT SAWYER [place] Comment: ----REFERENCE VALUE---- Desirable: <130 Above Desirable: 130-159 Borderline high: 160-189 High: 190-219 Very high: > or =220 Specimen Anatomical Collection Method Collection Time Receive d Time (Source) Location / / Volume Laterality Blood (Blood, 05/02/2020 10:40 05/02/2020 1:49 Venous) AM DOUBLE CUT SAWYER PM DOUBLE CUT SAWYER Joce Bailey M.D. LAB BLOOD ADD-ON Performing Organization Address City/State/ZIP Code Phon e Number [facility]- [address] [place] [address] [place] [address] System in [place] [address] (ABNORMAL) Cystatin C with Estimated GFR, S (05/02/2020 10:40 AM DOUBLE CUT SAWYER) P athologist Signature eGFR by 13 >60 05/03/2020 DAVE Cystatin C mL/min/BSA 7:49 AM DOUBLE CUT SAWYER Comment: ----ADDITIONAL INFORMATION---- Cystatin C-based eGFR may differ substan tially from creatinine-based eGFR in patients with a bnormal muscle mass or acutely changing renal function. ??Pl ease interpret together with relevant clinical features. Cystatin C, S 3.77 (H) 0.77 - 1.42 mg/L 05/03/2020 7:49 AM DOUBLE CUT SAWYER DAVE Specimen Anatomical Collection Method Collection Time Receive d Time (Source) Location / / Volume Laterality Blood (Blood, 05/02/2020 10:40 05/03/2020 6:57 Venous) AM DOUBLE CUT SAWYER AM DOUBLE CUT SAWYER Joce Bailey M.D. LAB BLOOD ADD-ON Performing Organization Address City/State/ZIP Code Phon e Number [facility] - [address] [place], [place] [address] [facility] [place] [address] Laboratories-[facility] [address] (ABNORMAL) Renal Function Panel (05/02/2020 10:40 AM DOUBLE CUT SAWYER) Analysis Performed At Patho logist Time Signature Potassium, P 3.6 3.6 - 5.2 05/02/2020 [place] mmol/L 2:28 PM DOUBLE CUT SAWYER Sodium, P 136 135 - 145 05/02/2020 [place] mmol/L 2:28 PM DOUBLE CUT SAWYER Chloride, P 99 98 - 107 05/02/2020 [place] mmol/L 2:28 PM DOUBLE CUT SAWYER Bicarbonate, P 26 22 - 29 05/02/2020 [facility] mmol/L 2:28 PM DOUBLE CUT SAWYER Anion Gap, P 11 7 - 15 05/02/2020 [facility] 2:28 PM DOUBLE CUT SAWYER BUN (Blood Urea 69 (H) 8 - 24 05/02/2020 [facility] Nitrogen), P mg/dL 2:28 PM DOUBLE CUT SAWYER Creatinine 3.22 (H) 0.74 - 05/02/2020 [facility] 1.35 mg/dL 2:28 PM DOUBLE CUT SAWYER eGFR-Black/Afri 22 (L) >=60 05/02/2020 [facility] can [place] mL/min/BSA 2:28 PM DOUBLE CUT SAWYER Comment: ----ADDITIONAL INFORMATION---- Estimated GFR calculated using the 2009 CKD_EPI creatinine equation. eGFR Non-Black/ 19 (L) >=60 mL/min/BSA 05/02/2020 2:28 PM DOUBLE CUT SAWYER [facility] [place] [facility] Comment: ----ADDITIONAL INFORMATION---- Estimated GFR calculated using the 2009 CKD_EPI creatinine equation. Calcium, Total, P 8.5 (L) 8.8 - 10.2 mg/dL 05/02/2020 2:28 PM DOUBLE CUT SAWYER [place] Glucose, P 189 (H) 70 - 140 mg/dL 05/02/2020 2:28 PM DOUBLE CUT SAWYER O YAO Albumin, P 3.9 3.5 - 5.0 g/dL 05/02/2020 2:28 PM DOUBLE CUT SAWYER O YAO Phosphorus (Inorganic), P 4.1 2.5 - 4.5 mg/dL 05/02/20 20 4:17 PM DOUBLE CUT SAWYER AUST Specimen Anatomical Collection Method Collection Time Receive d Time (Source) Location / / Volume Laterality Blood (Blood, 05/02/2020 10:40 05/02/2020 1:49 Venous) AM DOUBLE CUT SAWYER PM DOUBLE CUT SAWYER Narrative [facility] - 05/02/2020 4:17 PM DOUBLE CUT SAWYER Specimen Information: Specimen ID: [id number] Specimen Type: Blood Specimen Collection Start Date: 10:40 AM Specimen Received Date: 05/02/2020 ??1: 49 PM Specimen ID: [id number] Specimen Type: Blood Specimen Collection Start Date: 10:40 AM Specimen Received Date: 05/02/2020 ??4: 04 PM Joce Bailey M.D. LAB BLOOD ADD-ON Performing Organization Address City/State/ZIP Code Phon e Number [facility]- [address] [place] [address] [place] [address] System in [place] [address] [place] [address] [facility] [address] Ferritin (05/02/2020 10:40 AM DOUBLE CUT SAWYER) athologist Signature Ferritin, S 167 31 - 409 05/02/2020 [facility] mcg/L 2:19 PM DOUBLE CUT SAWYER Comment: Biotin has been identified by the [...] Location / / Volume Laterality Blood (Blood, 05/02/2020 10:40 05/02/2020 1:49 Venous) AM DOUBLE CUT SAWYER PM DOUBLE CUT SAWYER Joce Bailey M.D. LAB BLOOD ADD-ON Performing Organization Address City/State/ZIP Code Phon e Number [facility]- [address] [place] [address] [place] [address] System in [place] [address] Iron and Total Iron-Binding Capacity (05/02/2020 10:40 AM DOUBLE CUT SAWYER) P athologist Signature Iron 115 50 - 150 05/02/2020 [facility] mcg/dL 4:18 PM DOUBLE CUT SAWYER Total Iron 255 250 - 400 05/02/2020 [facility] Binding Capacity mcg/dL 4:18 PM DOUBLE CUT SAWYER Percent 45 14 - 50 % 05/02/2020 [facility] Saturation 4:18 PM DOUBLE CUT SAWYER Specimen Anatomical Collection Method Collection Time Receive d Time (Source) Location / / Volume Laterality Blood (Blood, 05/02/2020 10:40 05/02/2020 4:04 Venous) AM DOUBLE CUT SAWYER PM DOUBLE CUT SAWYER Joce Bailey M.D. LAB BLOOD ADD-ON Performing Organization Address City/State/ZIP Code Phon e Number [facility]- [address] [place] [address] [facility] [place] [address] [facility] [address] (ABNORMAL) CBC with Differential, Blood (05/02/2020 10:40 AM DOUBLE CUT SAWYER) [facility] gist Method Time Signature Hemoglobin 11.5 (L) 13.2 - 05/02/2020 FB60 16.6 g/dL 10:45 AM DOUBLE CUT SAWYER Hematocrit 34.9 (L) 38.3 - 05/02/2020 FB60 48.6 % 10:45 AM DOUBLE CUT SAWYER Erythrocytes 3.88 (L) 4.35 - 05/02/2020 FB60 5.65 10:45 AM DOUBLE CUT SAWYER x10(12)/L MCV 89.9 78.2 - 05/02/2020 FB60 97.9 fL 10:45 AM DOUBLE CUT SAWYER RBC Distrib Width 13.0 11.8 - 05/02/2020 FB60 14.5 % 10:45 AM DOUBLE CUT SAWYER Platelet Count 206 135 - 317 05/02/2020 FB60 x10(9)/L 10:45 AM DOUBLE CUT SAWYER Leukocytes 3.6 3.4 - 9.6 05/02/2020 FB60 x10(9)/L 10:45 AM DOUBLE CUT SAWYER Neutrophils 1.95 1.56 - 05/02/2020 FB60 6.45 10:45 AM DOUBLE CUT SAWYER x10(9)/L Lymphocytes 1.04 0.95 - 05/02/2020 FB60 3.07 10:45 AM DOUBLE CUT SAWYER x10(9)/L Monocytes 0.45 0.26 - 05/02/2020 FB60 0.81 10:45 AM DOUBLE CUT SAWYER x10(9)/L Eosinophils 0.10 0.03 - 05/02/2020 FB60 0.48 10:45 AM DOUBLE CUT SAWYER x10(9)/L Basophils 0.01 0.01 - 05/02/2020 FB60 0.08 10:45 AM DOUBLE CUT SAWYER x10(9)/L Specimen Anatomical Collection Method Collection Time Receive d Time (Source) Location / / Volume Laterality Blood (Blood, 05/02/2020 10:40 05/02/2020 Venous) AM DOUBLE CUT SAWYER 10:40 AM DOUBLE CUT SAWYER Charat Thongprayoon M.D. LAB BLOOD ADD-ON Performing Organization Address City/State/ZIP Code Phon e Number [facility] [address] [place] [address] [facility] [place] [address] System in [place] [address] documented in this encounter Visit Diagnoses Diagnosis Chronic Kidney Disease Stage 4 Glomerula r Filtration Rate 15-29 (HCC) Hypertension And Chronic Kidney Disease Stage 4 (HCC) documented in this encounter Additional Health Concerns Assessment Noted Time PHQ-9 Depression Total Score: 3 11/22/2019 7:34 AM CDT documented as of this encounter Care Teams Shift Nurse Manager Relationship Specialty Start Date End Date Elsewhere, Pcp PCP - General Family Medicine 07/29/17 [facility] - Laboratory Medicine 04/12/20 [place] [address] documented as of this encounter
--- OUTSIDE RECORDS SUMMARY | 2022-04-13 12:25 | XMS_ITS | Encounter Summary ---
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 Reason for call: Chief Complaint Patient presents with ??? Med Refill Pertinent Information: Pt called and says he has 5 days left of his Rx: Atorvastatin 10mg. Please send new script to pharmacy. Thanks! Preferred Communication Method: [phone] (mobile) Patient pharmacy: [id number] [place] [phone] Additional instructions: documented in this encounter Plan of Treatment Upcoming Encounters Date Type Specialty Care Team Description 04/24/2022 Appointment Laboratory Medicine Angélica Granger P.A.-C. [address] [place] [phone] 04/25/2022 Office Visit Otorhinolaryngology Dex Matta APRN, C.N.P., M.S.N. [address] [place] [phone] 05/08/2022 Appointment Laboratory Medicine Angélica Granger P.ADemetrius-C. [address] [place] [phone] 05/08/2022 Clinical Admitting/Central Communication Scheduling 05/10/2022 Appointment Radiology Jeremie Rose M.D. [address] [place] [phone] 05/10/2022 Comprehensive Visit Orthopedic Surgery Warner Graves M.D. [address] [place] [phone] 05/22/2022 Appointment Laboratory Medicine Angélica Granger P.A.-C. [address] [place] [phone] 06/05/2022 Appointment Laboratory Medicine Angélica Granger P.A.-C. [address] [place] [phone] 06/19/2022 Appointment Laboratory Medicine Angélica Granger P.A.-C. [address] [place] [phone] 07/03/2022 Appointment Laboratory Medicine Angélica Granger P.A.-C. [address] [place] [phone] 07/17/2022 Appointment Laboratory Medicine Angélica Granger P.A.-C. [address] [place] [phone] 07/31/2022 Appointment Laboratory Medicine Angélica Granger P.A.-C. [address] [place] [phone] 08/14/2022 Appointment Laboratory Medicine Angélica Granger P.A.-C. [address] [place] [phone] 08/28/2022 Appointment Laboratory Medicine Angélica Granger P.A.-C. [address] [place] [phone] documented as of this encounter Visit Diagnoses Not on filedocumented in this encounter Additional Health Concerns Assessment Noted Time PHQ-9 Depression Total Score: 3 11/22/2019 7:34 AM CDT documented as of this encounter Care Teams Form Maker Relationship Specialty Start Date End Date Elsewhere, Pcp PCP - General Family Medicine 07/29/17 documented as of this encounter
--- OUTSIDE RECORDS SUMMARY | 2022-04-13 12:25 | XMS_ITS | Encounter Summary ---
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 [address] [place] [phone] 04/25/2022 Office Visit Otorhinolaryngology Dex Matta APRN, C.N.P., M.S.N. [address] [place] [phone] 05/08/2022 Appointment Laboratory Medicine Angélica Granger P.A.-C. [address] [place] [phone] 05/08/2022 Clinical Admitting/Central Communication Scheduling 05/10/2022 Appointment Radiology Jeremie Rose M.D. [address] [place] [phone] 05/10/2022 Comprehensive Visit Orthopedic Surgery Warner Graves M.D. [address] [place] [phone] 05/22/2022 Appointment Laboratory Medicine Angélica Granger P.A.-C. [address] [place] [address] [phone] 06/05/2022 Appointment Laboratory Medicine Angélica Granger P.A.-C. [address] [place] [address] [phone] 06/19/2022 Appointment Laboratory Medicine Angélica Granger P.A.-C. [address] [place] [phone] 07/03/2022 Appointment Laboratory Medicine Angélica Granger P.A.-C. [address] [place] [phone] 07/17/2022 Appointment Laboratory Medicine Angélica Granger P.A.-C. [address] [place] [address] [phone] 07/31/2022 Appointment Laboratory Medicine Angélica Granger P.A.-C. [address] [place] [phone] 08/14/2022 Appointment Laboratory Medicine Angélica Granger P.A.-C. [address] [place] [phone] 08/28/2022 Appointment Laboratory Medicine Angélica Granger P.A.-C. [address] [place] [address] [phone] documented as of this encounter Procedures Procedure Name Priority Date/Time Associated Comments Diagnosis DERMATOLOGY IMAGE Routine 05/04/2020 10:38 Result s for this EXAM AM MEDICAL SERVICES COORDINATOR procedure are i n the results section. documented in this encounter Results Shoulder-Dermatology Image Exam (05/04/2020 10:38 AM MEDICAL SERVICES COORDINATOR) Specimen (Source) Anatomical Collection Method Collection Time Re ceived Time Location / / Volume Laterality 05/04/2020 12:00 PM MEDICAL SERVICES COORDINATOR Narrative IIMS - 05/04/2020 10:38 AM MEDICAL SERVICES COORDINATOR This order has been created and auto-finalized [...] documented as of this encounter Care Teams Mail Room Relationship Specialty Start Date End Date Elsewhere, Pcp PCP - General Family Medicine 07/29/17 [facility] - Laboratory Medicine 04/12/20 [place] [phone] documented as of this encounter
--- OUTSIDE RECORDS SUMMARY | 2022-04-13 12:25 | XMS_ITS | Encounter Summary ---
:1955 Author Organization [facility] Address [address] [place] [address] Care Team Providers Name Role Phone Elsewhere, Pcp Primary Care Provider Unavailable Reason for Visit Reason Comments Med Refill Encounter Details Date Type Department Care Team Description 03/17/2020 Refill Division of Nephrology and Mihir Jean RDemetriusNDemetrius Med Refill Hypertension in [place], [facility] [address] [place] [address] [place] [address] [place], [place] [address] [phone] Social History Tobacco Use Types Packs/Day Years [...] at Date Recorded Male 05/16/2020 4:27 PM ADMISSION 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 [address] [place] [phone] 04/25/2022 Office Visit Otorhinolaryngology Dex Matta APRN, C.N.P., M.S.N. [address] [place] [address] [phone] 05/08/2022 Appointment Laboratory Medicine Angélica Granger P.A.-CDemetrius [address] [place] [phone] 05/08/2022 Clinical Admitting/Central Communication Scheduling 05/10/2022 Appointment Radiology Jeremie Rose M.D. [address] [place] [phone] 05/10/2022 Comprehensive Visit Orthopedic Surgery Warner Graves M.D. [address] [place] [phone] 05/22/2022 Appointment Laboratory Medicine Angélica Granger P.A.-CDemetrius [address] [place] [phone] 06/05/2022 Appointment Laboratory Medicine Angélica Granger P.A.-C. [address] [place] [phone] 06/19/2022 Appointment Laboratory Medicine Angélica Granger P.A.-C. [address] [place] [phone] 07/03/2022 Appointment Laboratory Medicine Angélica Granger P.A.-C. [address] [place] [phone] 07/17/2022 Appointment Laboratory Medicine Angélica Granger P.A.-C. [address] [place] [phone] 07/31/2022 Appointment Laboratory Medicine Angélica Granger P.A.-C. [address] [place] [phone] 08/14/2022 Appointment Laboratory Angélica Royal P.A.-C. [address] [place] [phone] 08/28/2022 Appointment Laboratory Medicine Angélica Granger P.A.-C. [address] [place] [phone] documented as of this encounter Visit Diagnoses Diagnosis Hypertension Essential Primary documented in this encounter Additional Health Concerns Assessment Noted Time PHQ-9 Depression Total Score: 3 11/22/2019 7:34 AM CDT documented as of this encounter Care Teams Tubing Supervisor Relationship Specialty Start Date End Date Elsewhere, Pcp PCP - General Family Medicine 07/29/17 documented as of this encounter
--- OUTSIDE RECORDS SUMMARY | 2022-04-13 12:25 | XMS_ITS | Encounter Summary ---
:1955 Author Organization [facility] Address [address] [place] [address] Care Team Providers Name Role Phone Elsewhere, Pcp Primary Care Provider Unavailable Encounter Details Date Type Department Care Team Description 05/02/2020 Hospital Encounter Department of [facility], Chronic Kidney Laboratory Medicine Sada Hobson Disease Stage [address] Filtration Rate [address] [phone] 15- ([facility]) [place], [place] [phone] [address] (Work) [phone] Social History Tobacco Use Types Packs/Day Years [...] Date Recorded Male 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 Transplant Liver ([facility]) glucosamine-chondroitin Take 4 capsules by 0 05/22/2020 (GLUCOSAMINE-CHONDROITIN mouth daily. ) 500-400 mg per capsule lamoTRIgine (LaMICtal) TAKE 1 TABLET BY 200 tablet 3 020 10/03/2020 200 mg tablet MOUTH TWICE DAILY mycophenolate (CELLCEPT) TAKE 1 TABLET BY 180 tablet 3 11/2111/06/2020 500 mg MOUTH TWICE DAILY tabletIndications: Transplant Liver ([facility]) predniSONE (DELTASONE) Take 1 tablet (10 15 tablet 0 201905/22/2020 10 mg tablet mg total) by mouth daily. predniSONE (DELTASONE) 5 Take 1 tablet (5 mg 90 tablet 3 07/20/2020 mg tabletIndications: total) by mouth Transplant Liver ([facility]), daily. Medication Therapy Fdc Not Anticoagulant tacrolimus (PROGRAF) 0.5 Take 2 [...] Appointment Laboratory Medicine Angélica Granger P.A.-CDemetrius [address] [place] [phone] 04/25/2022 Office Visit Otorhinolaryngology Dex Matta APRN, C.N.P., M.S.N. [address] [place] [address] [phone] 05/08/2022 Appointment Laboratory Medicine Angélica Granger P.A.-CDemetrius [address] [place] [phone] 05/08/2022 Clinical Admitting/Central Communication Scheduling 05/10/2022 Appointment Radiology Jeremie Rose M.D. [address] [place] [phone] 05/10/2022 Comprehensive Visit Orthopedic Surgery Warner Graves M.D. [address] [place] [address] [phone] 05/22/2022 Appointment Laboratory Medicine Angélica Granger P.A.-CDemetrius [address] [place] [address] [phone] 06/05/2022 Appointment Laboratory Medicine Angélica Granger P.A.-C. [address] [place] [phone] 06/19/2022 Appointment Laboratory Medicine Angélica Granger P.A.-C. [address] [place] [phone] 07/03/2022 Appointment Laboratory Medicine Angélica Granger P.A.-C. [address] [place] [phone] 07/17/2022 Appointment Laboratory Medicine Angélica Granger P.A.-C. [address] [place] [phone] 07/31/2022 Appointment Laboratory Medicine Angélica Granger P.A.-C. [address] [place] [phone] 08/14/2022 Appointment Laboratory Medicine Angélica Granger P.A.-C. [address] [place] [phone] 08/28/2022 Appointment Laboratory Medicine Angélica Granger P.A.-C. [address] [place] [phone] documented as of this encounter Procedures Procedure Name Priority Date/Time Associated Comments Diagnosis ALBUMIN, RANDOM, U Routine 05/02/2020 10:45 Chronic Kidney Res ults for this AM COMMERCIAL LOAN PROCESSOR Disease Stage 4 procedure ar e in Glomerular the results Filtration Rate section. 15 (HCC) URINALYSIS WITH Routine 05/02/2020 10:45 Chronic Kidney Result s for this MICROSCOPIC AM COMMERCIAL LOAN PROCESSOR Disease Stage 4 procedure ar e in Glomerular the results Filtration Rate section. (HCC) documented in this encounter Results (ABNORMAL) Albumin, Random, Urine (05/02/2020 10:45 AM COMMERCIAL LOAN PROCESSOR) Patholo gist Method Time Signature Microalbumin 1213.0 mg/L 05/02/2020 OWAT 3:01 PM COMMERCIAL LOAN PROCESSOR Creatinine 71 mg/dL 05/02/2020 OW[place] 2:35 PM COMMERCIAL LOAN PROCESSOR Albumin/Creatinin 1708 (H) <17 mg/g 05/02/2020 [place] e Ratio 3:01 PM COMMERCIAL LOAN PROCESSOR Specimen Anatomical Collection Method Collection Time Receive d Time (Source) Location / / Volume Laterality Urine (Urine, 05/02/2020 10:45 05/02/2020 1:43 Voided) AM COMMERCIAL LOAN PROCESSOR PM COMMERCIAL LOAN PROCESSOR Joce Bailey M.D. LAB URINE ORDERABLES Performing Organization Address City/State/ZIP Code Phon e Number [facility] [address] [place] [address] [place] [address] System in [place] [address] (ABNORMAL) Urinalysis with Microscopic: Urine, Voided (05/02/2020 10:45 AM COMMERCIAL LOAN PROCESSOR) P athologist Signature Source Midstream 05/02/2020 FB60 11:03 AM COMMERCIAL LOAN PROCESSOR Clarity Clear Clear 05/02/2020 FB60 11:03 AM COMMERCIAL LOAN PROCESSOR Color Yellow 05/02/2020 FB60 11:03 AM COMMERCIAL LOAN PROCESSOR Comment: ----REFERENCE VALUE---- Colorless Yellow Bhakti Blood Small (A) Negative 05/02/2020 11:03 AM COMMERCIAL LOAN PROCESSOR FB60 Nitrite Negative Negative 05/02/2020 11:03 AM COMMERCIAL LOAN PROCESSOR FB60 Leukocyte Esterase Negative Negative 05/02/2020 11:[address] FB60 Protein >=300 (A) mg/dL 05/02/2020 11:03 AM COMMERCIAL LOAN PROCESSOR FB60 Comment: ----REFERENCE VALUE---- Negative Trace Glucose Negative Negative mg/dL 05/02/2020 11:03 AM COMMERCIAL LOAN PROCESSOR F B60 Ketones, QI(U) Negative Negative mg/dL 05/02/2020 11:03 AM COMMERCIAL LOAN PROCESSOR FB60 Bilirubin Negative Negative 05/02/2020 11:03 AM COMMERCIAL LOAN PROCESSOR FB60 pH 7.0 5.0 - 8.0 05/02/2020 11:03 AM COMMERCIAL LOAN PROCESSOR FB60 Specific Bath 1.020 1.001 - 1.035 05/02/2020 11:03 AM COMMERCIAL LOAN PROCESSOR FB60 Urobilinogen 0.2 0.2 - 1.0 mg/dL 05/02/2020 11:[address] FB60 White Blood Cells None Seen /hpf 05/02/2020 11:03 AM CS T FB60 Comment: ----REFERENCE VALUE---- Males: 0-3 Females: 0-10 Unknown: 0-10 Red Blood Cells 3-10 (A) 0 - 2 /hpf 05/02/2020 11:03 AM COMMERCIAL LOAN PROCESSOR FB60 Dysmorphic Red Blood Cells <=25 <=25 % 05/02/2020 11 :03 AM COMMERCIAL LOAN PROCESSOR FB60 Hyaline Casts Occasional /lpf 05/02/2020 11:03 AM COMMERCIAL LOAN PROCESSOR F B60 Specimen Anatomical Collection Method Collection Time Receive d Time (Source) Location / / Volume Laterality Urine (Urine, 05/02/2020 10:45 05/02/2020 Voided) AM COMMERCIAL LOAN PROCESSOR 10:45 AM COMMERCIAL LOAN PROCESSOR Joce Bailey M.D. LAB URINE ORDERABLES Performing Organization Address City/State/ZIP Code Phon e Number [address] [place], [place] [id number] [place] [address] LAB FB60 [place] [address] [address] documented in this encounter Visit Diagnoses Diagnosis Chronic Kidney Disease Stage 4 Glomerula r Filtration Rate 15-29 (HCC) documented in this encounter Additional Health Concerns Assessment Noted Time PHQ-9 Depression Total Score: 3 11/22/2019 7:34 AM CDT documented as of this encounter Care Teams Communications Department Chair Relationship Specialty Start Date End Date Elsewhere, Pcp PCP - General Family Medicine 07/29/17 [facility] - Laboratory Medicine 04/12/[address] [phone] documented as of this encounter
--- OUTSIDE RECORDS SUMMARY | 2022-04-13 12:25 | XMS_ITS | Encounter Summary ---
:1955 Author Organization [facility] Address [address] [place] [address] Care Team Providers Name Role Phone Elsewhere, Pcp Primary Care Provider Unavailable Reason for Visit Appointment Request (Routine) - Closed Specialty Diagnoses / Procedures Referred By Contact Refer red To Contact Dermatology Diagnoses Screening Examination Skin Cancer Referral ID Status Reason Start Date Expiration Date Visits Requ ested Visits Authorized [id number] Closed 04/28/2020 04/28/2021 1 1 Encounter Details Date Type Department Care Team Description 05/04/2020 Office Visit Department of Sominidi Tumor Skin Unc ertain Behavior (Primary Dx); Dermatology in [facility], Keratosis [facility]; [place], [place] Sada Hull Cancer Skin Squamous Cell Personal Histo ry; [address] [facility] [address] 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 - 05/04/2020 8:40 AM CST Shave biopy was on the Left posterior thigh was/were performed as ordered and outlined by Dr. Liam Phillips ([phone]) in the clinical note dated with today's date. ATIC DIRECTOR documented in this encounter Consult Notes Kurtis Montana M.D. - 05/04/2020 8:40 AM CST PATIENT DEMOGRAPHICS Clinic Number: [id number] Patient Name: Mr.. Bruce Singh Age: 64 y.o. Sex: male Birthdate: 1955 Service: DERM Patient seen and discussed with supervising infrastructure consultant, Santana Nunez MD [phone]), who evaluated the patient and concurs with the assessment and plan. CORRESPONDENCE TO : Dr. Kurtis Phillips MD CHIEF COMPLAINT History of liver transplant on chronic immunosuppression Lesions face Lesion, upper chest and right arm Lesion left thigh HISTORY OF PRESENT ILLNESS Mr. Bruce Singh is a 64 y.o. male with history of liver transplant in 1998 and read transplant in 2012 on chronic immunosuppression with CellCept, prednisone and tacrolimus presents today for follow-up. He was last seen in the Dermatology Clinic in November 2019. 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 Patient today is concerned about above skin lesions. He started using iyhd-mxc-vdkpzjr compound W, freeze lotion to the areas on the forehead, chest and arm. He reports that the lesions on the forehead responded. He has been treating the lesions on the chest and arm using this for the past 1 week. His last treatment was yesterday. He reports that these lesions appear wart like. Inaddition, he continues to have crusting and scabbing on the biopsy and treated site on the vertex. He has not tried compound W freeze on this yet. He otherwise denies any other concerns today. He triesto be very careful with sunscreen and sun protective measures now. He is also following social distancing and masking precautions with COVID-19. OBJECTIVE PHYSICAL EXAM General: Alert, pleasant, in no acute distress. Respiratory system: Breathing normally in room air Skin: Examination of the scalp, face, neck, chest, abdomen, back, upper and lower extremities including digits and toes was performed today. Examination of the scalp is notable for a small keratotic papule with scabbing on the surface of size approximately 3 mm on the previous procedure site on the vertex. Significant dermatoheliosis noted on the face, trunk and extremities. No concerning lesion noted on the forehead. Few skin colored and hyperpigmented waxy keratotic stuck on papules noted which are consistent with seborrheic keratoses. No concerns for work on noted on exam today. Erythematous, crusted plaque of size approximately 5-6 mm each noted on the upper chest and right arm. Brown to dark brown waxy keratotic stuck on papules and plaques seen scattered on the trunk and extremity. Located on the left posterior thigh is a irritated papule of size approximately 3 mm with central crust on the surface. ASSESSMENT AND PLAN #1 History of nonmelanoma skin cancer #2 Dermatoheliosis Sun protection and sun avoidance were reviewed with the patient. Educational materials were providedregarding skin self-examination, the warning signs and symptoms of skin cancer, and the proper use of sunscreens. I would recommend a full skin cancer screening examination with an appropriately trained clinician every 6-12 months. 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 I wonder if this lesion is likely related to wart. Concern for recurrent squamous cell carcinoma is very low at this time. We proceeded to treat this area with cryotherapy, 2 freeze thaw cycles of 15 seconds each was used. I recommended patient to follow-up with us in July for re-evaluation of this lesion in addition to other lesions on the chest and arm. Verbalized understanding and is in agreement with the plan. #4 Lesion, upper chest #5 Lesion, right upper arm Patient has been treating these lesions with lqwq-rdu-hmkqddq Compound-W, freeze treatment. His lasttreatment was yesterday. Unable to clearly define this lesion. Differential diagnosis include seborrheic keratosis versus wart versus squamous cell carcinoma. For now, we have recommended patient to stop using any aofn-oqq-xujitnz preparations for the next few weeks. He will present for a follow-up inFebruary. We will re-evaluate these lesions at that time and consider appropriate treatment or biopsy. He verbalized understanding. If he notices any rapid growth prior to his appointment in July, he will schedule an appointment sooner. Photographs were obtained today for reference. #6 Tumor of uncertain significance, left posterior thigh - irritated keratosis versus rule out squamous cell carcinoma. Performed shave biopsy for histopathology CONSENT Discussed the risks, benefits, alternatives, and [...] a shave biopsy was obtained from the left posterior thigh. Biopsy submitted to Dermatopathology for H&E. Special stains will be performed as indicated. The bleeding was well controlled with application of aluminum chloride. Dressing was applied, and wound care instructions were explained. Biopsy results and any further recommendations will be communicated to the patient by letter. Patient given pamphlet [id number]. Patient education Ready to learn, no apparent learning barriers were identified; learning preferences include listening. Explained diagnosis and treatment plan; patient/guardian of patient expressed understanding of thecontent. ATIC DIRECTOR Associated attestation - Santana Nunez M.D. - 05/04/2020 9:21 AM DRAMATIC DIRECTOR I saw and evaluated the patient, participating in the garcia portions of the service. I reviewed the resident???s note. I agree with the resident???s findings and plan. I was present for the critical portion and immediately available for the entire procedure. Santana Nunez M.D. documented in this encounter Plan of Treatment Upcoming Encounters Date Type Specialty Care Team Description 04/24/2022 Appointment Laboratory Medicine Angélica Granger P.A.-CDemetrius [address] [place] [phone] 04/25/2022 Office Visit Otorhinolaryngology Dex Matta APRN, C.N.P., M.S.N. [address] [place] [phone] 05/08/2022 Appointment Laboratory Medicine Angélica Granger P.A.-CDemetrius [address] [place] [phone] 05/08/2022 Clinical Admitting/Central Communication Scheduling 05/10/2022 Appointment Radiology Jeremie Rose M.D. [address] [place] [phone] 05/10/2022 Comprehensive Visit Orthopedic Surgery Warner Graves M.D. [address] [place] [phone] 05/22/2022 Appointment Laboratory Medicine Angélica Granger P.A.-C. [address] [place] [phone] 06/05/2022 Appointment Laboratory Medicine Angélica Granger P.A.-C. [address] [place] [phone] 06/19/2022 Appointment Laboratory Medicine Angélica Granger P.A.-C. [address] [place] [phone] 07/03/2022 Appointment Laboratory Medicine Angélica Granger P.A.-C. [address] [place] [phone] 07/17/2022 Appointment Laboratory Medicine Angélica Granger P.A.-C. [address] [place] [phone] 07/31/2022 Appointment Laboratory Medicine Angélica Granger P.A.-C. [address] [place] [phone] 08/14/2022 Appointment Laboratory Medicine Angélica Granger P.A.-C. [address] [place] [phone] 08/28/2022 Appointment Laboratory Medicine Angélica Granger P.A.-C. [address] [place] [phone] documented as of this encounter Procedures Procedure Name Priority Date/Time Associated Diagnosis Comme nts DERMATOPATHOLOGY Routine 05/04/2020 9:15 AM Resul ts for this DRAMATIC DIRECTOR procedure are i n the results section. documented in this encounter Results Dermatopathology (05/04/2020 9:15 AM DRAMATIC DIRECTOR) Component Value Ref Test Analysis Performed At [facility] Range Method Time Signature 05/08/2020 [facility] 11:57 AM DRAMATIC DIRECTOR Report Aaliyah Larson 05/08/2020 [facility] electronically Sada Smith 11:57 AM signed by DRAMATIC DIRECTOR Gross Description Received in formalin labeled with patient's name, medical 05/08/2020 [facility] record number and left posterior thigh is a 0.7 x 0.6 x 11:57 AM 0.1 cm pale grady skin shave biopsy. ??There is a 0.3 x 0.3 cm DRAMATIC DIRECTOR pale grady-brown raised, firm pigmented lesion with well-defined borders centrally located on the skin surface. The specimen is bisected and submitted entirely in cassette A1. ??Grossed by OH. Interpretation FINAL DIAGNOSIS 05/08/2020 [facility] A. ??Left posterior thigh, Skin shave biopsy: ??Irritated 11:57 AM verrucal keratosis DRAMATIC DIRECTOR Specimen (Source) Anatomical Collection Method Collection Time Re ceived Time Location / / Volume Laterality Skin (Left 05/04/2020 9:15 AM posterior thigh) DRAMATIC DIRECTOR Narrative This result has an attachment that is no t available. Kurtis Phillips M.D. LAB PATH DERM ORDERAB LES Performing Organization Address City/State/[facility] Code Phon e Number [place] [address] [place], [place] [address] [place] [address] [facility] [address] documented in this encounter Visit Diagnoses Diagnosis Tumor Skin Uncertain Behavior - Primary Keratosis Seborrheic Cancer Skin Squamous Cell Personal Histo ry Keratosis documented in this encounter Additional Health Concerns Assessment Noted Time PHQ-9 Depression Total Score: 3 11/22/2019 7:34 AM CDT documented as of this encounter Care Teams Bean Picker Machine Operator Relationship Specialty Start Date End Date Elsewhere, Pcp PCP - General Family Medicine 07/29/17 [facility] - Laboratory Medicine 04/12/20 [place] [phone] documented as of this encounter
--- OUTSIDE RECORDS SUMMARY | 2022-04-13 12:25 | XMS_ITS | Encounter Summary ---
:1955 Author Organization [facility] Address [address] [place] [address] Care Team Providers Name Role Phone Elsewhere, Pcp Primary Care Provider Unavailable Reason for Visit Reason Onset Date Comments Outpatient COVID-19 Testing 04/13/2020 Encounter Details Date Type Department Care Team Description 04/13/2020 External Outreach Department of Mushtaq Salas [facility] Internal Medicine in J, D.O. Respiratory (Primary [place], [place] [address] Dx) [address] [place] [phone] Social History Tobacco Use Types Packs/Day Years [...] or more drinks on one occasion? 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 - 04/13/2020 9:46 AM CDT Encounter created for the drive-through COVID-19 testing. documented in this encounter Plan of Treatment Upcoming Encounters Date Type Specialty Care Team Description 04/24/2022 Appointment Laboratory Medicine Angélica Granger P.A.-C. [address] [place] [phone] 04/25/2022 Office Visit Otorhinolaryngology Dex Matta APRN, C.N.P., M.S.N. [address] [place] [phone] 05/08/2022 Appointment Laboratory Medicine Angélica Granger P.A.-C. [address] [place] [phone] 05/08/2022 Clinical Admitting/Central Communication Scheduling 05/10/2022 Appointment Radiology Jeremie Rose M.D. [address] [place] [phone] 05/10/2022 Comprehensive Visit Orthopedic Surgery Warner Graves M.D. [address] [place] [phone] 05/22/2022 Appointment Laboratory Medicine Angélica Granger P.A.-C. [address] [place] [phone] 06/05/2022 Appointment Laboratory Medicine Angélica Granger P.A.-C. [address] [place] [phone] 06/19/2022 Appointment Laboratory Medicine Angélica Granger P.A.-C. [address] [place] [phone] 07/03/2022 Appointment Laboratory Medicine Angélica Granger P.A.-C. [address] [place] [phone] 07/17/2022 Appointment Laboratory Medicine Angélica Granger P.A.-C. [address] [place] [phone] 07/31/2022 Appointment Laboratory Medicine Angélica Granger P.A.-C. [address] [place] [phone] 08/14/2022 Appointment Laboratory Medicine Angélica Granger P.A.-C. [address] [place] [phone] 08/28/2022 Appointment Laboratory Medicine Angélica Granger P.A.-C. [address] [place] [phone] documented as of this encounter Procedures Procedure Name Priority Date/Time Associated Diagnosis Comme nts SARS CORONAVIRUS-2 Routine 04/13/2020 12:18 PM Infection Upper Results for this RNA, V CDT Respiratory procedure are i n the results section. documented in this encounter Results SARS Coronavirus-2 RNA, V Symptomatic (04/13/2020 12:18 PM CDT) [facility] Method Time Signature SARS-CoV-2 Swab, 04/14/2020 [facility] Specimen Nasopharynx 2:08 AM CDT Source SARS CoV-2 Undetected Undetected 04/14/2020 [facility]TO RNA, TMA 2:08 AM CDT Comment: SARS-CoV-2 RNA absent. This result does not rule out COVID-19 in the patient, as the sensitivity of the test depends o n the timing of the specimen collection and the quality of the specim en. Result should be correlated with patient's history and clinical presentat ion. ----ADDITIONAL INFORMATION---- This test is performed using the Aptima SARS-CoV-2 assay ([employer] which has received Emergency Use Authori zation (EUA) by the U.S. Food and Drug Administration. Fact sheets for this Emergency Use Autho rization (EUA) assay can be found at the following links: For Healthcare Providers: https://www.fd a.gov/media/856745/download For Patients: https://www.fda.gov/media/ 458297/download Specimen Anatomical Collection Method Collection Time Receive d Time (Source) Location / / Volume Laterality Varies 04/13/2020 12:18 04/13/2020 7:17 (Nasopharynx) PM CDT PM CDT Mushtaq Salas D.O. LAB MICROBIOLOGY - GENERAL O RDERAKAJAL Performing Organization Address City/State/ZIP Code Phon e Number [facility]- [address] [place] [address] [place] [address] System [address] documented in this encounter Visit Diagnoses Diagnosis Infection Upper Respiratory - Primary documented in this encounter Additional Health Concerns Infection Onset Date Last Indicated Resolved Time COVID19 Pending 04/13/2020 04/13/2020 04/14/2020 2:09 AM CDT Assessment Noted Time PHQ-9 Depression Total Score: 3 11/22/2019 7:34 AM CDT documented as of this encounter Care Teams Carcass Washer Relationship Specialty Start Date End Date Elsewhere, Pcp PCP - General Family Medicine 07/29/17 [facility] - Laboratory Medicine 04/12/20 [place] [phone] documented as of this encounter
--- OUTSIDE RECORDS SUMMARY | 2022-04-13 12:25 | XMS_ITS | Encounter Summary ---
:1955 Author Organization [facility] Address [address] [place] [address] Care Team Providers Name Role Phone Elsewhere, Pcp Primary Care Provider Unavailable Reason for Visit Outpatient (Routine) - Closed Specialty Diagnoses / Procedures Referred By Contact Refer red To Contact Nephrology and [facility] Hypertension Sada Hobson [address] [place] [phone] Referral ID Status Reason Start Date Expiration Date Visits Requ ested Visits Authorized [id number] Closed 04/21/2020 04/21/2021 1 1 Encounter Details Date Type Department Care Team Description 05/04/2020 Nurse Only Division of Nephrology and Joce Nelson M.D. [address] [place] [phone] [facility] RDemetriusNDemetrius [place] [address] [place] [phone] Social History Tobacco Use Types Packs/Day [...] 12/15/2021 organizations such as synagogue groups, unions, fraLexdir or athletic groups, or school groups? 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 - 05/04/2020 10:45 AM CST Provider Name: Dr. Mohr Reason for Visit: Returning short-term patient Relevant History: hypertension, kidney disease and transplant: liver transplant in 1998 and 2012 On 04/21/20 Dr. Bailey recommended increasing Torsemide to 20 mg two times daily and follow a low sodium diet. Preferred arm use for BP: Either. Date last assessed: 03/01/2019 Home BP Monitor: Yes Date last assessed: NA Exercise: Yes he recently started an exercise program and lifting weights Patient's weight is: Patient's weight is stable. Tobacco Use: Social History Tobacco Use Smoking Status Never Smoker Smokeless Tobacco Never Used Alcohol Use: Social History Substance and Sexual Activity Alcohol Use No ??? Frequency: Never ??? Binge frequency: Never Dietary Assessment: dines out frequently, enjoys saerickraut on his pizza Vitals: 05/04/20 1042 05/04/20 1046 05/04/20 1048 05/04/20 1051 BP: (!) 166/74 154/70 156/76 130/72 BP Location: Left arm Left arm Left arm Left arm Patient Position: Sitting Sitting Sitting Standing Cuff Size: Regular Pulse: (!) 50 Weight: 80.9 kg Plan of Care: Patient initially stated that he had gone one week without his Lisinopril, realized itwas missing, and then re-added it to his pill box. When reviewing his medication list, he noticed that Lisinopril wasn't listed. He then stated he was mistaken and has been taking the torsemide, thoughhe had missed a week of it, and not Lisinopril. I asked him to double check his pill bottles when hereturns home. He has +2 pitting edema in his bilateral lower extremities. His Cr is 3.22 which is upfrom 2.7 on 01/31/20. GFR is 19. His Albumin/ Creatine ratio is 1708. Home blood pressures are ifbsri138-707/85, though last night it was 185/80. He states that prior to increasing the Torsemide he hadbeen waking up at night with headaches and his blood pressure would be in the 200s systolic. He c/o fatigue and dyspna with exercise, but states he has had this for 1-2 years. He also has nocturia. In-office blood pressures are: above goal. Dizziness/Lightheadedness: denies dizziness or lightheadedness. Recommendations given to: monitor and record BP and reviewed proper home BP monitoring technique Recommend having home blood pressure monitor assessed for accuracy on an annual basis. Instructed patient to call Nephrology & Hypertension Nurses if blood pressure is greater than 140/90 or with any questions or concerns he might have. He will continue on his current regimen for now. I will review with Dr. Bailey and would be happy to contact the patient if he has any additional recommendations at this time. ADDITION 05/09/20: Dr. Bailey reviewed. He did not recommend any changes at this time. He is following up with him on 05/22 with labs. 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 [address] [place] [phone] 04/25/2022 Office Visit Otorhinolaryngology Dex Matta APRN, C.N.P., M.S.N. [address] [place] [phone] 05/08/2022 Appointment Laboratory Medicine Angélica Granger P.A.-C. [address] [place] [phone] 05/08/2022 Clinical Admitting/Central Communication Scheduling 05/10/2022 Appointment Radiology Jeremie Rose M.D. [address] [place] [phone] 05/10/2022 Comprehensive Visit Orthopedic Surgery Warner Graves M.D. [address] [place] [phone] 05/22/2022 Appointment Laboratory Medicine Angélica Granger P.A.-C. [address] [place] [phone] 06/05/2022 Appointment Laboratory Medicine Angélica Granger P.A.-C. [address] [place] [phone] 06/19/2022 Appointment Laboratory Medicine Angélica Granger P.A.-C. [address] [place] [phone] 07/03/2022 Appointment Laboratory Medicine Angélica Granger P.A.-C. [address] [place] [phone] 07/17/2022 Appointment Laboratory Medicine Angélica Granger P.A.-C. [address] [place] [phone] 07/31/2022 Appointment Laboratory Medicine Angélica Granger P.A.-C. [address] [place] [phone] 08/14/2022 Appointment Laboratory Medicine Angélica Granger P.A.-C. [address] [place] [phone] 08/28/2022 Appointment Laboratory Medicine Angélica Granger P.A.-C. [address] [place] [phone] documented as of this encounter Visit Diagnoses Not on filedocumented in this encounter Additional Health Concerns Assessment Noted Time PHQ-9 Depression Total Score: 3 11/22/2019 7:34 AM CDT documented as of this encounter Care Teams Deli Cutter Slicer Relationship Specialty Start Date End Date Elsewhere, Pcp PCP - General Family Medicine 07/29/17 [facility] - Laboratory Medicine 04/12/[address] [phone] documented as of this encounter
--- OUTSIDE RECORDS SUMMARY | 2022-04-13 12:26 | XMS_ITS | Encounter Summary ---
:1955 Author Organization [facility] Address [address] [place] [address] Care Team Providers Name Role Phone Elsewhere, Pcp Primary Care Provider Unavailable Reason for Visit Reason Onset Date Comments Outpatient COVID-19 Testing 01/26/2020 Encounter Details Date Type Department Care Team Description 01/26/2020 External Outreach Department of Mushtaq Salas Infect [facility] Internal Medicine in J, D.O. 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 - 01/26/2020 5:22 PM CDT Encounter created for the drive-through COVID-19 testing. documented in this encounter Plan of Treatment Upcoming Encounters Date Type Specialty Care Team Description 04/24/2022 Appointment Laboratory Medicine Angélica Granger P.A.-C. [address] [place] [phone] 04/25/2022 Office Visit Otorhinolaryngology Dex Matta, RAMONA, C.N.P., M.S.N. [address] [place] [phone] 05/08/2022 Appointment Laboratory Medicine Angélica Granger P.A.-C. [address] [place] [phone] 05/08/2022 Clinical Admitting/Central Communication Scheduling 05/10/2022 Appointment Radiology Jeremie Rose M.D. [address] [place] [phone] 05/10/2022 Comprehensive Visit Orthopedic Surgery Warner Graves M.D. [address] [place] [phone] 05/22/2022 Appointment Laboratory Medicine Angélica Granger P.A.-C. [address] [place] [phone] 06/05/2022 Appointment Laboratory Medicine Angélica Granger P.A.-C. [address] [place] [phone] 06/19/2022 Appointment Laboratory Medicine Angélica Granger P.A.-C. [address] [place] [phone] 07/03/2022 Appointment Laboratory Medicine Angélica Granger P.A.-C. [address] [place] [phone] 07/17/2022 Appointment Laboratory Medicine Angélica Granger P.A.-C. [address] [place] [phone] 07/31/2022 Appointment Laboratory Medicine Angélica Granger P.A.-C. [address] [place] [phone] 08/14/2022 Appointment Laboratory Medicine Angélica Granger P.A.-C. [address] [place] [phone] 08/28/2022 Appointment Laboratory Medicine Angélica Granger P.A.-C. [address] [place] [phone] documented as of this encounter Procedures Procedure Name Priority Date/Time Associated Diagnosis Comme nts SARS CORONAVIRUS-2 Routine 01/27/2020 11:57 AM Infection Upper Results for this RNA, V CDT Respiratory procedure are i n the results section. documented in this encounter Results SARS Coronavirus-2 RNA, V Symptomatic (01/27/2020 11:57 AM CDT) [facility] Method Time Signature SARS-CoV-2 Swab, 01/28/2020 MKTO Specimen Nasopharynx 12:11 AM Source CDT SARS CoV-2 Undetected Undetected 01/28/2020 MKTO RNA, TMA 12:11 AM CDT Comment: SARS-CoV-2 RNA absent. This result does not rule out COVID-19 in the patient, as the sensitivity of the test depends o n the timing of the specimen collection and the quality of the specim en. Result should be correlated with patient's history and clinical presentat ion. ----ADDITIONAL INFORMATION---- This test is performed using the Aptima SARS-CoV-2 assay ([employer] which has received Emergency Use Authori zation (EUA) by the U.S. Food and Drug Administration. Fact sheets for this Emergency Use Autho rization (EUA) assay can be found at the following links: For Healthcare Providers: https://www.fd a.gov/media/811826/download For Patients: https://www.fda.gov/media/ 234652/download Specimen Anatomical Collection Method Collection Time Receive d Time (Source) Location / / Volume Laterality Varies 01/27/2020 11:57 01/27/2020 2:23 (Nasopharynx) AM CDT PM CDT Mushtaq Salas D.O. LAB MICROBIOLOGY - GENERAL O CAMERAKAJAL Performing Organization Address City/State/ZIP Code Phon e Number [id number]- [address] [place] [id number] [place] [address] [address] documented in this encounter Visit Diagnoses Diagnosis Infection Upper Respiratory - Primary documented in this encounter Additional Health Concerns Infection Onset Date Last Indicated Resolved Time COVID19 Pending 01/26/2020 01/27/2020 01/28/2020 12:12 AM CDT Assessment Noted Time PHQ-9 Depression Total Score: 3 11/22/2019 7:34 AM CDT documented as of this encounter Care Teams Architect Naval Relationship Specialty Start Date End Date Elsewhere, Pcp PCP - General Family Medicine 07/29/17 documented as of this encounter
--- OUTSIDE RECORDS SUMMARY | 2022-04-13 12:26 | XMS_ITS | Encounter Summary ---
:1955 Author Organization [facility] Address [address] [place] [address] Care Team Providers Name Role Phone Elsewhere, Pcp Primary Care Provider Unavailable Reason for Visit Transplant (Routine) - Closed Specialty Diagnoses / Procedures Referred By Contact Refer red To Contact Transplant Surgery / Diagnoses Transplant Liver (HCC) Angélica Granger, [facility] P.A.-C. [address] [place] [phone] Referral ID Status Reason Start Date Expiration Date Visits Requ ested Visits Authorized [id number] Closed 12/27/2019 12/26/2020 1 1 Encounter Details Date Type Department Care Team Description 12/30/2019 Office Visit Angélica Ching, P.A.-C. [address] [place] [phone] Pneumonitis Due To Inhalation Of Food An d Vomit (HCC) (Primary Dx); [facility] P.[facility].-Arley., M.S. 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 - 12/30/2019 11:00 AM CDT DEMOGRAPHIC INFORMATION Patient Name: Bruce Singh Clinic Number: [id number] Age: 64 y.o. Birthdate: 1955 Sex: male Service Date/Time: 12/30/19 9:28 AM CDT TRANSPLANT INFECTIOUS DISEASES SERVICE - Consult Note Referral Source: Angélica Granger P.A.-C. CHIEF COMPLAINT/PURPOSE OF VISIT Cough and low grade fever in a liver transplant recipient. HISTORY OF PRESENT ILLNESS Mr. 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 He developed portal vein obstruction and also underwent umbilical hernia repair. He has chronic kidney disease, stage 4 and is listed for kidney transplantation. His kidney function has been stable for some time. His liver allograft is doing well. He is chronic immunosuppression with tacrolimus, prednisone and CellCept. Mr. Singh has had a cough for the last 2.5-3 months. He coughs throughout the day and night. He complains of post nasal drip and has had low grade fever. He has a history of sinus congestion and is followed by an outside ENT provider. He has been coughing up sputum which he describes as milky in color or sometimes dark chocolate, bloody. He does have some shortness of breath and increased fatigue. He tells me that when he brushes his teeth he will vomit on occasion. He denies any tooth pain. Chest x-ray on November 22, [address] chest done the following day showed diffuse bronchial wall thickening and endobronchial plugging greatest in the middle and lower lobes. Tree-in-bud opacities in the left greater than right lung base and in the anterior RML. Slight consolidation left lung base. He was seen by Dr. Simon on November 22 and was given albuterol 2 puffs 3-4 times daily along witha short 5 day course of prednisone taper without any benefit. He also completed a 5 day course of emp iric levofloxacin without benefit. A bronchoscopy with BAL was performed on December 15, 2019 and BAL from left lower lobe was obtained. There were bilateral scattered mucopurulent secretions. All ICH studies were negative. Fungal culture yielded Penicillium sp and few dematiaceous fungus; likely not of any clinical significance. A repeat CT chest was done yesterday and shows a new area of consolidation in the left lung base with surrounding tree-in-bud micronodules and scattered throughout the left lower lobe. New tree-in-bud micronodules in the anterior right lower lobe. Diffuse bronchial wall thickening. No adenopathy. Radiology raised the possibility of aspiration pneumonia. Today in clinic he continues to cough and sounds congested with nasal intonation. He says he has been afebrile now for the past day. He submitted a sputum yesterday for microbial analysis. His ribs hurt him due to the continued coughing. He continues to complain of having quite a lot of post nasal drip coming from his sinuses. No pleuritic chest pain reported. Off antibiotics at present. He does havea remote history of C. Difficile infection. He lives alone. He denies any travel outside of this area. He is closing on his house and has been working more than usual to get that all ready. Allergies Allergen Reactions ??? Cefixime Diarrhea ??? Ciprofloxacin Other (see comments) Tendon pain ??? Citalopram Other (see comments) michell ??? Erythromycin Base Other (see comments) Due to medications ??? Olanzapine Other (see comments) Joint pain ??? Quetiapine Edema Muscle pain and swelling VITALS: Temperature - 36.4 C Weight - 77.0 PHYSICAL EXAMINATION General: Awake and alert but looks tired. Oriented x 3. Not toxic in appearance. Nasal intonation. Intermittent cough. Respirations unlabored at rest. Head: AT/NC. Eyes: Sclerae non-icteric. Conjunctivae are non-injected. EOM's intact. ENT: No oral lesions. Neck: Supple. Lungs: Diminished excursion. Diminished breath sounds left base. No adventitious sounds. Extremities: No edema. Skin: Scattered areas of ecchymosis over forearms. No acute rashes or lesions. Mentation: Normal mood and affect. Gait: Normal. Ambulates without difficulty or assistance. Lines/Catheters: None. Other devices: None. DIAGNOSTICS LABORATORY I have reviewed the patient's current pertinent laboratory, imaging, and other diagnostic studies which are available in [facility] and [facility] respectively. December 29, 2019 Labs: Hemoglobin 10.0, hematocrit 31.1, platelet count 207, white blood cell count 6.3, neutrophils 5.01, lymphocytes 0.52, sodium 133, potassium 4.1, chloride 93, bicarbonate 26, BUN 48,creatinine 2.82, estimated GFR 22, total calcium 8.1, glucose 220, total bilirubin 0.3, ALT 39, AST 31, alkaline phosphatase 96, albumin 3.6. Tacrolimus 2.6. MICROBIOLOGY December 29, 2019 sputum Gram stain-no organism seen. Few white blood cells. Bacterial culture in process. December 15, 2019 BAL ICH protocol: Full report in epic. All studies negative with the exception of fungal culture which shows penicillium species and few Dematiaceous fungus of unclear significance. Fungal susceptibilities on the penicillium species were performed. Cytology showed acute inflammation. Negative for malignancy. DIAGNOSTIC IMAGING Full reports in [facility]. As outlined above in HPI. 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 DISCUSSION Mr. Singh continues to cough and repeat CT chest yesterday is clearly worse in the left lower lobecompared to the prior study done on November 23, 2019. Given his history of vomiting with teeth brushing, negative bacterial cultures and findings on chest imaging, aspiration pneumonia is a possibility. Laurent concerned about the clear worsening of the CT along with his continued symptoms. I think we should get a CT of his sinuses at some point as he may benefit from ENT exam and cleaning out of his sinuses. In the meantime I discussed with Mr. Singh the possibility that we may need to admit him to hospital for further testing and parenteral antimicrobial therapy. He wants to remain out of hospital sohe can close on his house. I have elected to place him on Augmentin 500 mg twice daily (renal dose adjusted) and he will keep us informed how he is doing. If he is not better over the next 4-5 days he will let us know and I think we should bring him in to hospital. He is in agreement with this. He hasmy card and knows how to get a hold of his liver membership coordinator. I have also given him a prescription for oral vancomycin 125 mg twice daily preemptively given his history of C. Difficile infection in the past. 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 Augmentin 500 mg twice daily (renal dose adjusted) x 10 days for possible aspiration pneumonia. 2. Oral vancomycin 125 mg twice daily preemptively while on systemic antibiotic. 3. If patient is no better by early next week he is to contact his Liver Transplant team to arrange for admission to hospital for further evaluation and parenteral antimicrobial therapy. Sooner if he gets worse. 4. Follow-up on pending results of sputum submitted December 29, 2019. 5. Favor CT sinuses if no better on Augmentin. Case discussed with Dr. Gabriella Edwards (Transplant ID) and Angélica Granger PA-C from liver transplant. PATIENT EDUCATION Ready to learn, no apparent learning barriers were identified; learning preferences include listening. Explained diagnosis and treatment plan; patient expressed understanding of the content. Thank you for the opportunity to participate in the care of Mr. Singh. Prescriptions for Augmentin and oral Vancomycin electronically generated to patients local pharmacy. Trung Plasencia P.A.-C., M.S. documented in this encounter Plan of Treatment Upcoming Encounters Date Type Specialty Care Team Description 04/24/2022 Appointment Laboratory Medicine Angélica Granger P.A.-C. [address] [place] [phone] 04/25/2022 Office Visit Otorhinolaryngology Dex Matta APRN, C.N.P., M.S.N. [address] [place] [phone] 05/08/2022 Appointment Laboratory Medicine Angélica Granger P.A.-C. [address] [place] [phone] 05/08/2022 Clinical Admitting/Central Communication Scheduling 05/10/2022 Appointment Radiology Jeremie Rose M.D. [address] [place] [phone] 05/10/2022 Comprehensive Visit Orthopedic Surgery Warner Graves M.D. [address] [place] [phone] 05/22/2022 Appointment Laboratory Medicine Angélica Granger P.A.-C. [address] [place] [phone] 06/05/2022 Appointment Laboratory Medicine Angélica Granger P.A.-C. [address] [place] [phone] 06/19/2022 Appointment Laboratory Medicine Angélica Granger P.A.-C. [address] [place] [phone] 07/03/2022 Appointment Laboratory Medicine Angélica Granger P.A.-C. [address] [place] [phone] 07/17/2022 Appointment Laboratory Medicine Angélica Granger P.A.-C. [address] [place] [phone] 07/31/2022 Appointment Laboratory Medicine Angélica Granger P.A.-C. [address] [place] [phone] 08/14/2022 Appointment Laboratory Medicine Angélica Granger P.A.-C. [address] [place] [phone] 08/28/2022 Appointment Laboratory Medicine Angélica Granger P.A.-C. 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
--- OUTSIDE RECORDS SUMMARY | 2022-04-13 12:26 | XMS_ITS | Encounter Summary ---
:1955 Author Organization [facility] Address [address] [place] [address] Care Team Providers Name Role Phone Elsewhere, Pcp Primary Care Provider Unavailable Reason for Referral MRI/CAT/PET Scan (Routine) - Closed Specialty Diagnoses / Procedures Referred By Contact Refer red To Contact Radiology Diagnoses Cough Unspecified Type Transplant Liver (HCC) Trung Plasencia P.A.-C., [facility] Procedures CT Chest without IV Contrast M.S. [address] [place], [place] [phone] Referral ID Status Reason Start Date Expiration Date Visits Requ ested Visits Authorized [id number] Closed 01/26/2020 01/25/2021 1 1 Reason for Visit MRI/CAT/PET Scan (Routine) - Closed Specialty Diagnoses / Procedures Referred By Contact Refer red To Contact Radiology Diagnoses Cough Unspecified Type Transplant Liver (HCC) Trung Plasencia P.A.-C., [facility] Procedures CT Chest without IV Contrast M.S. [address] [place], [place] [phone] Referral ID Status Reason Start Date Expiration Date Visits Requ ested Visits Authorized [id number] Closed 01/26/2020 01/25/2021 1 1 Encounter Details Date Type Department Care Team Description 01/31/2020 Hospital Encounter Department of Trung Plasencia; Radiology, Kd Stern P.A.-C., Transplant Liver (HCC) Building, in 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 Prior to dental procedures cholecalciferol (VITAMIN Take 1 tablet by 0 09/0311/13/2020 D3) 2,000 Unit tablet mouth daily. ipratropium (ATROVENT) Administer 2 sprays 0 07/201611/13/2020 42 mcg (0.06 %) nasal into affected spray nostril(s) 4 (four) times a day as needed for rhinitis. Maintenance levothyroxine TAKE 1 TABLET BY 90 tablet 3 12/01/201912/12 (SYNTHROID, LEVOTHROID) MOUTH EVERY MORNING 25 mcg tablet 30 MINUTES BEFORE BREAKFAST multivitamin tablet Take 1 tablet by 0 06/18/2013 10/12/2021 mouth daily. Maintenance amoxicillin-pot Take 1 tablet by 42 tablet 0 01/31/2020 clavulanate (AUGMENTIN) mouth every 12 875-125 mg per tablet (twelve) hours for 21 days. vancomycin (VANCOCIN) Take 1 capsule (125 56 capsule 0 01/3002/28/2020 125 mg capsule mg total) by mouth 2 (two) times a day for 28 days. albuterol inhaler Inhale 1-2 puffs 1 Inhaler 11 11/23/2019 1 07/04/2019 every 6 (six) hours as needed for wheezing or shortness of breath. amLODIPine (NORVASC) 10 TAKE 1 TABLET BY 90 tablet 3 201805/17/2020 mg tabletIndications: MOUTH DAILY Chronic Kidney Disease Stage 4 Glomerular Filtration Rate 15-29 (HCC) aspirin [address] tablet Take 81 mg by mouth 0 05/04/2020 daily. atorvastatin (LIPITOR) Take 1 tablet (10 90 tablet 3 201903/16/2020 10 mg tablet mg total) by mouth daily. CALCIUM-MAGNESIUM ORAL Take 2 capsules by 0 08/1905/04/2020 mouth 2 (two) times a day. 400mg calcium twice daily cholecalciferol (VITAMIN Take 1 capsule by 0 02/2105/24/2021 D3) 50 mcg (2,000 Unit) mouth daily. capsule doxazosin (CARDURA) 4 mg Take 1 tablet (4 mg 90 tablet 3 03/17/2020 tabletIndications: total) by mouth Hypertension Essential daily. Primary fluticasone (FLONASE Administer 1 spray 0 017 02/07/2020 ALLERGY RELIEF) 50 into affected mcg/actuation nasal nostril(s) daily as spray needed. One to two sprays per nostril daily for allergies; mostly for fall allergies glucosamine-chondroitin Take 4 capsules by 0 05/22/2020 (GLUCOSAMINE-CHONDROITIN mouth daily. ) 500-400 mg per capsule lamoTRIgine (LaMICtal) TAKE 1 TABLET BY 200 tablet 3 020 10/03/2020 200 mg tablet MOUTH TWICE DAILY mycophenolate (CELLCEPT) TAKE 1 TABLET BY 180 tablet 3 11/2111/06/2020 500 mg MOUTH TWICE DAILY tabletIndications: Transplant Liver (HCC) predniSONE (DELTASONE) Take 1 tablet (10 15 tablet 0 201905/22/2020 10 mg tablet mg total) by mouth daily. predniSONE (DELTASONE) 5 Take 1 tablet (5 mg 90 tablet 3 07/20/2020 mg tabletIndications: total) by mouth Transplant Liver (HCC), daily. Medication Therapy Senior Living Not Anticoagulant tacrolimus (PROGRAF) 0.5 Take 2 capsules (1 360 capsule 3 07/20/2020 mg capsuleIndications: mg total) by mouth Transplant Liver (HCC), 2 (two) times a Medication Therapy Long day. Term Not Anticoagulant torsemide (DEMADEX) 10 TAKE 3 TABLETS BY 270 tablet 3 201904/21/2020 mg tablet MOUTH EVERY DAY RESTARTED 03-26-17 MAINTANCE traZODone (DESYREL) 100 Take 1 tablet by 0 201610/12/2020 mg tablet mouth at bedtime as needed for sleep. Maintenance documented as 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 [address] [place] [phone] 04/25/2022 Office Visit Otorhinolaryngology Dex Matta APRN, C.N.P., M.S.N. [address] [place] [phone] 05/08/2022 Appointment Laboratory Medicine Angélica Granger P.A.-C. [address] [place] [phone] 05/08/2022 Clinical Admitting/Central Communication Scheduling 05/10/2022 Appointment Radiology Jeremie Rose M.D. [address] [place] [phone] 05/10/2022 Comprehensive Visit Orthopedic Surgery Warner Graves M.D. [address] [place] [phone] 05/22/2022 Appointment Laboratory Medicine Angélica Granger P.A.-C. [address] [place] [phone] 06/05/2022 Appointment Laboratory Medicine Angélica Granger P.A.-C. [address] [place] [phone] 06/19/2022 Appointment Laboratory Medicine Angélica Granger P.A.-C. [address] [place] [phone] 07/03/2022 Appointment Laboratory Medicine Angélica Granger P.A.-C. [address] [place] [phone] 07/17/2022 Appointment Laboratory Medicine Angélica Granger P.A.-C. [address] [place] [phone] 07/31/2022 Appointment Laboratory Medicine Angélica Granger P.A.-C. [address] [place] [phone] 08/14/2022 Appointment Laboratory Medicine Angélica Granger P.A.-C. [address] [place] [phone] 08/28/2022 Appointment Laboratory Medicine Angélica Granger P.A.-C. [address] [place] [phone] documented as of this encounter Procedures Procedure Name Priority Date/Time Associated Comments Diagnosis CT CHEST WITHOUT RAD - Routine 01/31/2020 10:09 Cough Results for this IV CONTRAST (most inpatients AM CDT Transplant Liver procedu re are in and all (HCC) the results outpatients) section. documented in this encounter Results CT Chest without IV Contrast (01/31/2020 10:09 AM CDT) Anatomical Region Laterality Modality Chest, Thoracic RST LOS, Thoracic ARZ N/A Co mputed Tomography, Computed LOS, Thoracic FLA LOS Tomography Specimen (Source) Anatomical Collection Method Collection Time Re ceived Time Location / / Volume Laterality 01/31/2020 10:23 AM CDT Impressions 01/31/2020 12:34 PM CDT Mixed interval changes since 12/29/2019, with a new area of dense consolidation in the anterior and medial right lower lung, however improvement in left lower lobe consolidation and sissy e-in-bud micronodules. Similar bilateral bronchial wall thickening and endobronch ial plugging. Findings are likely related to an multifocal infectious/infl ammatory process Narrative 01/31/2020 12:34 PM CDT EXAM: CT CHEST WITHOUT IV CONTRAST COMPARISON: CT chest 12/29/2019 FINDINGS: New focal consolidation within the anter ior and medial right lower lobe with surrounding micro-nodularity in region o f previous endobronchial plugging (circa series 3, image 435); this measures appr oximately 57 x 44 mm (series 3, image 449). Interval improvement of the left l ower lobe consolidation, also with surrounding tree-in-bud micronodules (ci rca series 3, image 465). Overall similar bilateral bronchial wall thicken ing and multifocal endobronchial plugging, with some areas increased and others decreased. Similar right middle lobe micronodules. New micronodules in t he lingula (circa image 455). Tiny calcified pulmonary granulomas. No pneumothorax or pleural effusion. No size significant hilar, mediastinal, or axillary lymphadenopathy. A small 16 x 8 mm fluid attenuation focus in the right anterior mediastinum (series 3, image 35 2) is unchanged from 11/23/2019. Calcified atherosclerotic plaque in the aorta, proximal aortic arch branch vessels, and coronary arteries. Postoperative changes right upper quadra nt of the abdomen adjacent to the IVC compatible with prior liver transplant. Cholecystectomy. Mild splenomegaly is similar. Stable 16 mm right renal cyst. Partially visualized left renal artery stent. Partially visualized upper abdomi nal varices. Tiny hiatal hernia. Old healed right anterior rib and right mid to distal clavicular fractures. Mild musculoskeletal degenerative changes. No aggressive osseous lesions. Procedure Note Maggie Young M.D. - 01/31/2020Format ting of this note might be different from the original. EXAM: CT CHEST WITHOUT IV CONTRAST COMPARISON: CT chest 12/29/2019 FINDINGS: New focal consolidation within the anter ior and medial right lower lobe with surrounding micro-nodularity in region o f previous endobronchial plugging (circa series 3, image 435); this measures appr oximately 57 x 44 mm (series 3, image 449). Interval improvement of the left l ower lobe consolidation, also with surrounding tree-in-bud micronodules (ci rca series 3, image 465). Overall similar bilateral bronchial wall thicken ing and multifocal endobronchial plugging, with some areas increased and others decreased. Similar right middle lobe micronodules. New micronodules in t he lingula (circa image 455). Tiny calcified pulmonary granulomas. No pneumothorax or pleural effusion. No size significant hilar, mediastinal, or axillary lymphadenopathy. A small 16 x 8 mm fluid attenuation focus in the right anterior mediastinum (series 3, image 35 2) is unchanged from 11/23/2019. Calcified atherosclerotic plaque in the aorta, proximal aortic arch branch vessels, and coronary arteries. Postoperative changes right upper quadra nt of the abdomen adjacent to the IVC compatible with prior liver transplant. Cholecystectomy. Mild splenomegaly is similar. Stable 16 mm right renal cyst. Partially visualized left renal artery stent. Partially visualized upper abdomi nal varices. Tiny hiatal hernia. Old healed right anterior rib and right mid to distal clavicular fractures. Mild musculoskeletal degenerative changes. No aggressive osseous lesions. IMPRESSION: Mixed interval changes since 12/29/2019, with a new area of dense consolidation in the anterior and medial right lower lung, however improvement in left lower lobe consolidation and sissy e-in-bud micronodules. Similar bilateral bronchial wall thickening and endobronch ial plugging. Findings are likely related to an multifocal infectious/infl ammatory process Trung Plasencia P.A.-C., M.S. IMG CT PROCEDURES documented in this encounter Visit Diagnoses Diagnosis Cough Unspecified Type Transplant Liver (HCC) documented in this encounter Additional Health Concerns Assessment Noted Time PHQ-9 Depression Total Score: 3 11/22/2019 7:34 AM CDT documented as of this encounter Care Teams Furnace Operator Relationship Specialty Start Date End Date Elsewhere, Pcp PCP - General Family Medicine 07/29/17 documented as of this encounter
--- OUTSIDE RECORDS SUMMARY | 2022-04-13 12:26 | XMS_ITS | Encounter Summary ---
:1955 Author Organization [facility] Address [address] [place] [address] Care Team Providers Name Role Phone Elsewhere, Pcp Primary Care Provider Unavailable Encounter Details Date Type Department Care Team Description 01/31/2020 Hospital Encounter Department of Leonid Gonzalez Liver Laboratory Medicine Sada Camejo (HCC) and Pathology, [address] [place] [address] in [place] [phone] [place] [phone] [place] [address] (Work) [place], [place] [phone] (Fax) [phone] Social History Tobacco Use Types Packs/Day Years [...] at Date Recorded 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 ipratropium (ATROVENT) Administer 2 sprays 0 /07/201611/13/2020 [...] 4 Glomerular Filtration Rate 15-29 ([facility]) aspirin [address] tablet Take 81 [...] mouth Transplant Liver (HCC), daily. Medication Therapy Usp Not Anticoagulant tacrolimus (PROGRAF) 0.5 Take 2 [...] Laboratory Medicine Angélica Granger P.A.-CDemetrius [address] [place] [phone] 04/25/2022 Office Visit Otorhinolaryngology Dex Matta APRN, C.N.P., M.S.N. [address] [place] [phone] 05/08/2022 Appointment Laboratory Medicine Angélica Granger P.A.-CDemetrius [address] [place] [address] [phone] 05/08/2022 Clinical Admitting/Central Communication Scheduling 05/10/2022 Appointment Radiology Jeremie Rose M.D. [address] [place] [phone] 05/10/2022 Comprehensive Visit Orthopedic Surgery Warner Graves M.D. [address] [place] [address] [phone] 05/22/2022 Appointment Laboratory Medicine Angélica Granger P.A.-CDemetrius [address] [place] [phone] 06/05/2022 Appointment Laboratory Medicine Angélica Granger P.A.-C. [address] [place] [phone] 06/19/2022 Appointment Laboratory Medicine Angélica Granger P.A.-C. [address] [place] [phone] 07/03/2022 Appointment Laboratory Medicine Angélica Granger P.A.-C. [address] [place] [phone] 07/17/2022 Appointment Laboratory Medicine Angélica Granger P.A.-C. [address] [place] [phone] 07/31/2022 Appointment Laboratory Medicine Angélica Granger P.A.-C. [address] [place] [phone] 08/14/2022 Appointment Laboratory Medicine Angélica Granger P.A.-C. [address] [place] [phone] 08/28/2022 Appointment Laboratory Medicine Angélica Granger P.A.-C. [address] [place] [phone] documented as of this encounter Procedures Procedure Name Priority Date/Time Associated Comments Diagnosis TACROLIMUS LEVEL, B Routine 01/31/2020 7:52 AM Transplant Live r Results for this CDT (HCC) procedure are i n the results section. CBC WITH DIFFERENTIAL, Routine 01/31/2020 7:52 AM Transplant L iver Results for this B CDT (HCC) procedure are i n the results section. COMPREHENSIVE Routine 01/31/2020 7:52 AM Transplant Liver Resu lts for this METABOLIC PANEL, S/P CDT (HCC) procedu re are in the results section. documented in this encounter Results (ABNORMAL) Comprehensive Metabolic Panel (01/31/2020 7:52 AM CDT) Analysis Performed At [facility] Time Signature Potassium, S 4.2 3.6 - 5.2 01/31/2020 DTL mmol/L 8:49 AM CDT Sodium, S 135 135 - 145 01/31/2020 DTL mmol/L 8:49 AM CDT Chloride, S 95 (L) 98 - 107 01/31/2020 DTL mmol/L 8:49 AM CDT Bicarbonate, S 25 22 - 29 01/31/2020 DTL mmol/L 8:49 AM CDT Anion Gap 15 7 - 15 01/31/2020 DTL 8:49 AM CDT BUN (Blood Urea 42 (H) 8 - 24 01/31/2020 DTL Nitrogen), S mg/dL 8:49 AM CDT Creatinine 2.70 (H) 0.74 - 01/31/2020 DTL 1.35 mg/dL 8:49 AM CDT eGFR-Non 24 (L) >=60 01/31/2020 DTL Black/ mL/min/BSA 8:49 AM CDT [place]yan Comment: ----ADDITIONAL INFORMATION---- Estimated GFR calculated using the 2009 CKD_EPI creatinine equation. eGFR-Black/ 27 (L) >=60 mL/min/BSA 2019 8:49 AM CDT DTL Comment: ----ADDITIONAL INFORMATION---- Estimated GFR calculated using the 2009 CKD_EPI creatinine equation. Calcium, Total, S 8.7 (L) 8.8 - 10.2 mg/dL 01/31/2020 8:49 AM CDT DTL Glucose, S 227 (H) 70 - 140 mg/dL 01/31/2020 8:49 AM CDT D TL Protein, Total, S 6.0 (L) 6.3 - 7.9 g/dL 01/31/2020 8:49 A M CDT DTL Albumin, S 3.8 3.5 - 5.0 g/dL 01/31/2020 8:49 AM CDT D TL Aspartate Aminotransferase 23 8 - 48 U/L 01/31/2020 8 :49 AM CDT DTL (AST), S Alkaline Phosphatase, S 111 40 - 129 U/L 01/31/2020 8: 49 AM CDT DTL Alanine Aminotransferase 23 7 - 55 U/L 01/31/2020 8:4 9 AM CDT DTL (ALT), S Bilirubin, Total, S 0.3 <=1.2 mg/dL 01/31/2020 8:49 AM CDT DTL Specimen Anatomical Collection Method Collection Time Receive d Time (Source) Location / / Volume Laterality Blood (Blood, 01/31/2020 7:52 AM 01/31/20 8:31 Venous) CDT AM CDT Leonid Gonzalez M.D. LAB BLOOD ADD-ON Performing Organization Address City/[facility] Phon e Number [facility] - [address] [place], [place] [address] [place] [address] Laboratories-[facility] [address] (ABNORMAL) Tacrolimus, B (01/31/2020 7:52 AM CDT) P athologist Signature Tacrolimus, B 2.4 (L) 5.0-15.0 01/31/2020 [facility] (Trough) 1:23 PM CDT ng/mL Comment: ----ADDITIONAL INFORMATION---- Target [...] Location / / Volume Laterality Blood (Blood, 01/31/2020 7:52 AM 01/31/20 Venous) CDT 10:33 AM CDT Leonid Gonzalez M.D. LAB BLOOD NON ADD-ON Performing Organization Address City/[facility] Phon e Number [facility] [address] [place], [place] [address] [facility] [place] [address] Laboratory Medicine and Pathology [address] [place] (ABNORMAL) CBC with Differential, Blood (01/31/2020 7:52 AM CDT) [employer] gist Method Time Signature Hemoglobin 10.4 (L) 13.2 - 01/31/2020 DTL 16.6 g/dL 8:38 AM CDT Hematocrit 31.7 (L) 38.3 - 01/31/2020 DTL 48.6 % 8:38 AM CDT Erythrocytes 3.43 (L) 4.35 - 01/31/2020 DTL 5.65 8:38 AM CDT x10(12)/L MCV 92.4 78.2 - 01/31/2020 DTL 97.9 fL 8:38 AM CDT RBC Distrib Width 13.1 11.8 - 01/31/2020 DTL 14.5 % 8:38 AM CDT Platelet Count 209 135 - 317 01/31/2020 DTL x10(9)/L 8:38 AM CDT Leukocytes 6.3 3.4 - 9.6 01/31/2020 DTL x10(9)/L 8:38 AM CDT Neutrophils 4.61 1.56 - 01/31/2020 DTL 6.45 8:38 AM CDT x10(9)/L Lymphocytes 0.95 0.95 - 01/31/2020 DTL 3.07 8:38 AM CDT x10(9)/L Monocytes 0.57 0.26 - 01/31/2020 DTL 0.81 8:38 AM CDT x10(9)/L Eosinophils 0.14 0.03 - 01/31/2020 DTL 0.48 8:38 AM CDT x10(9)/L Basophils <0.03 0.01 - 01/31/2020 DTL 0.08 8:38 AM CDT x10(9)/L Specimen Anatomical Collection Method Collection Time Receive d Time (Source) Location / / Volume Laterality Blood (Blood, 01/31/2020 7:52 AM 01/31/20 20 8:22 Venous) CDT AM CDT Leonid Gonzalez M.D. LAB BLOOD ADD-ON Performing Organization Address City/State/ZIP Code Phon e Number [facility] - [address] [place], [place] [address] [facility] [place] [address] Laboratories-[facility] [address] documented in this encounter Visit Diagnoses Diagnosis Transplant Liver (HCC) documented in this encounter Additional Health Concerns Assessment Noted Time PHQ-9 Depression Total Score: 3 11/22/2019 7:34 AM CDT documented as of this encounter Care Teams Memorial Adviser Relationship Specialty Start Date End Date Elsewhere, Pcp PCP - General Family Medicine 07/29/17 documented as of this encounter
--- OUTSIDE RECORDS SUMMARY | 2022-04-13 12:26 | XMS_ITS | Encounter Summary ---
:1955 Author Organization [facility] Address [address] [place] [address] Care Team Providers Name Role Phone Elsewhere, Pcp Primary Care Provider Unavailable Encounter Details Date Type Department Care Team Description 12/29/2019 Clinical Communication Division of [facility] Internal Medicine, [facility] in D.N.P., R.N . 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 [address] [place] [phone] 04/25/2022 Office Visit Otorhinolaryngology Dex Matta, RAMONA, C.N.P., M.S.N. [address] [place] [address] [phone] 05/08/2022 Appointment Laboratory Medicine Angélica Granger P.A.-CDemetrius [address] [place] [address] [phone] 05/08/2022 Clinical Admitting/Central Communication Scheduling 05/10/2022 Appointment Radiology Jeremie Rose M.D. [address] [place] [phone] 05/10/2022 Comprehensive Visit Orthopedic Surgery Warner Graves M.D. [address] [place] [phone] 05/22/2022 Appointment Laboratory Medicine Angélica Granger P.A.-C. [address] [place] [phone] 06/05/2022 Appointment Laboratory Medicine Angélica Granger P.A.-C. [address] [place] [phone] 06/19/2022 Appointment Laboratory Medicine Angélica Granger P.A.-C. [address] [place] [phone] 07/03/2022 Appointment Laboratory Medicine Angélica Granger P.A.-C. [address] [place] [phone] 07/17/2022 Appointment Laboratory Medicine Angélica Granger P.A.-C. [address] [place] [phone] 07/31/2022 Appointment Laboratory Medicine Angélica Granger P.A.-C. [address] [place] [phone] 08/14/2022 Appointment Laboratory Medicine Angélica Granger P.A.-C. [address] [place] [phone] 08/28/2022 Appointment Laboratory Medicine Angélica Granger P.A.-C. [address] [place] [phone] documented as of this encounter Visit Diagnoses Not on filedocumented in this encounter Additional Health Concerns Assessment Noted Time PHQ-9 Depression Total Score: 3 11/22/2019 7:34 AM CDT documented as of this encounter Care Teams Manager Financial Services Relationship Specialty Start Date End Date Elsewhere, Pcp PCP - General Family Medicine 07/29/17 documented as of this encounter
--- OUTSIDE RECORDS SUMMARY | 2022-04-13 12:26 | XMS_ITS | Encounter Summary ---
:1955 Author Organization [facility] Address [address] [place] [address] Care Team Providers Name Role Phone Elsewhere, Pcp Primary Care Provider Unavailable Encounter Details Date Type Department Care Team Description 12/29/2019 Hospital Encounter Department of Angélica Grnager Liver Laboratory Medicine Edmundo Stern (HCC) and Pathology, [address] [place] [address] in [place], [place] [address] [place] [address] [place], [place] (Work) [phone] [phone] Social History Tobacco Use Types Packs/Day Years [...] Date Recorded 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 ipratropium (ATROVENT) Administer 2 sprays 0 10/0 [...] Disease Stage 4 Glomerular Filtration Rate 15-29 ([facility]) aspirin [address] tablet Take [...] (HCC), daily. Medication Therapy Prison Not Anticoagulant tacrolimus (PROGRAF) 0.5 Take 2 [...] Laboratory Medicine Angélica Granger P.A.-CDemetrius [address] [place] [phone] 04/25/2022 Office Visit Otorhinolaryngology Dex Matta APRN, C.N.P., M.S.N. [address] [place] [phone] 05/08/2022 Appointment Laboratory Medicine Angélica Granger P.A.-CDemetrius [address] [place] [phone] 05/08/2022 Clinical Admitting/Central Communication Scheduling 05/10/2022 Appointment Radiology Jeremie Rose M.D. [address] [place] [phone] 05/10/2022 Comprehensive Visit Orthopedic Surgery Warner Graves M.D. [address] [place] [address] [phone] 05/22/2022 Appointment Laboratory Medicine Angélica Granger P.A.-CDemetrius [address] [place] [phone] 06/05/2022 Appointment Laboratory Medicine Angélica Granger P.A.-C. [address] [place] [phone] 06/19/2022 Appointment Laboratory Medicine Angélica Granger P.A.-C. [address] [place] [phone] 07/03/2022 Appointment Laboratory Medicine Angélica Granger P.A.-C. [address] [place] [phone] 07/17/2022 Appointment Laboratory Medicine Angélica Granger P.A.-C. [address] [place] [phone] 07/31/2022 Appointment Laboratory Medicine Angélica Granger P.A.-C. [address] [place] [phone] 08/14/2022 Appointment Laboratory Medicine Angélica Granger P.A.-C. [address] [place] [phone] 08/28/2022 Appointment Laboratory Medicine Angélica Granger P.A.-C. [address] [place] [phone] documented as of this encounter Procedures Procedure Name Priority Date/Time Associated Comments Diagnosis IMMUNOFIXATION Routine 12/29/2019 7:22 AM Results for this CDT procedure are i n the results section. CBC NO CALL BACK, Routine 12/29/2019 7:22 AM Transplant Liver Results for this REFLEX T/S CDT (HCC) procedure are i n the results section. TACROLIMUS LEVEL, B Routine 12/29/2019 7:22 AM Transplant Live r Results for this CDT (HCC) procedure are i n the results section. ELECTROPHORESIS, Routine 12/29/2019 7:22 AM Resul ts for this PROTEIN, S CDT procedure are i n the results section. BILIRUBIN DIRECT, S/P Routine 12/29/2019 7:22 AM Transplant Li gerry Results for this CDT (HCC) procedure are i n the results section. COMPREHENSIVE METABOLIC Routine 12/29/2019 7:22 AM Transplant Liver Results for this PANEL, S/P CDT (HCC) procedure are i n the results section. documented in this encounter Results (ABNORMAL) Electrophoresis, Protein (12/29/2019 7:22 AM CDT) [facility] [employer] Method Time Signature Total Protein, 5.7 (L) 6.3 - 7.9 05/03/2020 [facility] S g/dL 10:46 AM SENIOR MEDICAL DIRECTOR Albumin 2.9 (L) 3.4 - 4.7 05/04/2020 [facility] g/dL 10:58 AM SENIOR MEDICAL DIRECTOR Alpha-1 0.4 (H) 0.1 - 0.3 05/04/2020 [facility] Globulin g/dL 10:58 AM SENIOR MEDICAL DIRECTOR Alpha-2 0.9 0.6 - 1.0 05/04/2020 [facility] Globulin g/dL 10:58 AM SENIOR MEDICAL DIRECTOR Beta-Globulin 0.8 0.7 - 1.2 05/04/2020 [facility] g/dL 10:58 AM SENIOR MEDICAL DIRECTOR Gamma-Globulin 0.8 0.6 - 1.6 05/04/2020 [facility] g/dL 10:58 AM SENIOR MEDICAL DIRECTOR A/G Ratio 1.02 05/04/2020 [facility] 10:58 AM SENIOR MEDICAL DIRECTOR Impression No apparent monoclonal protein on serum electrophoresi s. 05/04/2020 [facility] See Immunofixation. 10:58 AM SENIOR MEDICAL DIRECTOR Specimen Anatomical Collection Method Collection Time Receive d Time (Source) Location / / Volume Laterality Blood 12/29/2019 7:22 AM 0 CDT 10:04 AM SENIOR MEDICAL DIRECTOR Otoniel Davis M.D. LAB BLOOD ADD-ON Performing Organization Address City/State/ZIP Code Phon e Number [facility] [address] [place] [address] SUPPORT CENTER [facility] [place] [address] Laboratory Medicine and Pathology [address] [place] Immunofixation (12/29/2019 7:22 AM CDT) [facility] Method Time Signature Immunofixation No monoclonal 05/04/2020 [facility] protein 4:54 PM SENIOR MEDICAL DIRECTOR detected. Specimen Anatomical Collection Method Collection Time Receive d Time (Source) Location / / Volume Laterality Blood 12/29/2019 7:22 AM 0 CDT 10:04 AM SENIOR MEDICAL DIRECTOR Otoniel Davis M.D. LAB BLOOD NON ADD-ON Performing Organization Address [facility] Phon e Number [address] [place] [address] [place] [address] Laboratory Medicine and Pathology [address] [place] [address] Dr. MURILLO (ABNORMAL) Tacrolimus, B (12/29/2019 7:22 AM CDT) P athologist Signature Tacrolimus, B 2.6 (L) 5.0-15.0 12/29/2019 [facility] (Trough) 2:14 PM CDT ng/mL Comment: ----ADDITIONAL INFORMATION---- Target steady-state trough concentration s vary depending on the type of transplant, concomitant immunosuppressio n, clinical/institutional protocols, and time post-transplant. Results should be interpreted in conjunction with this clinical information and any physic al signs/symptoms of rejection/toxicity. Testing performed by Liquid Chromatograp hy-Tandem Mass Spectrometry (LC-MS/MS). This test was developed and its performa nce characteristics determined by [facility] in a manner consistent with CLIA requirements. This test has not been cleared or approved by the U.S. Mer d and Drug Administration. Specimen Anatomical Collection Method Collection Time Receive d Time (Source) Location / / Volume Laterality Blood (Blood, 12/29/2019 7:22 AM 12/29/19 20 9:02 Venous) CDT AM CDT Angélica Granger P.A.-C. LAB BLOOD NON ADD-ON Performing Organization Address City/[facility] Code Phon e Number [place] [id number] [place] [id number] [facility]PPORT [facility] [place] [address] Laboratory Medicine and Pathology [address] [place] [address] Dr. MURILLO (ABNORMAL) CBC no call back, reflex T/S HGB <8 (12/29/2019 7:22 AM CDT) Patholo gist Method Time Signature Hemoglobin 10.0 (L) 13.2 - 12/29/2019 [facility] 16.6 g/dL 8:14 AM CDT Hematocrit 31.1 (L) 38.3 - 12/29/2019 DTL 48.6 % 8:14 AM CDT Erythrocytes 3.30 (L) 4.35 - 12/29/2019 DTL 5.65 8:14 AM CDT x10(12)/L MCV 94.2 78.2 - 12/29/2019 DTL 97.9 fL 8:14 AM CDT RBC Distrib Width 12.2 11.8 - 12/29/2019 DTL 14.5 % 8:14 AM CDT Platelet Count 207 135 - 317 12/29/2019 [facility] x10(9)/L 8:14 AM CDT Leukocytes 6.3 3.4 - 9.6 12/29/2019 DTL x10(9)/L 8:14 AM CDT Neutrophils 5.01 1.56 - 12/29/2019 DTL 6.45 8:14 AM CDT x10(9)/L Lymphocytes 0.52 (L) 0.95 - 12/29/2019 DTL 3.07 8:14 AM CDT x10(9)/L Monocytes 0.71 0.26 - 12/29/2019 DTL 0.81 8:14 AM CDT x10(9)/L Eosinophils 0.07 0.03 - 12/29/2019 DTL 0.48 8:14 AM CDT x10(9)/L Basophils <0.03 0.01 - 12/29/2019 DTL 0.08 8:14 AM CDT x10(9)/L Specimen Anatomical Collection Method Collection Time Receive d Time (Source) Location / / Volume Laterality Blood (Blood, 12/29/2019 7:22 AM 12/29/19 20 8:06 Venous) CDT AM CDT Angélica Granger P.A.-C. LAB BLOOD NON ADD-ON Performing Organization Address City/State/ZIP Code Phon e Number [facility] - [address] [place], [place] [address] [facility] [place] [address] Laboratories-[facility] 200 [facility] (ABNORMAL) Comprehensive Metabolic Panel (12/29/2019 7:22 AM CDT) Analysis Performed At Patho logist Time Signature Potassium, S 4.1 3.6 - 5.2 12/29/2019 DTL mmol/L 8:30 AM CDT Sodium, S 133 (L) 135 - 145 12/29/2019 DTL mmol/L 8:30 AM CDT Chloride, S 93 (L) 98 - 107 12/29/2019 DTL mmol/L 8:30 AM CDT Bicarbonate, S 26 22 - 29 12/29/2019 DTL mmol/L 8:30 AM CDT Anion Gap 14 7 - 15 12/29/2019 DTL 8:30 AM CDT BUN (Blood Urea 48 (H) 8 - 24 12/29/2019 DTL Nitrogen), S mg/dL 8:30 AM CDT Creatinine 2.82 (H) 0.74 - 12/29/2019 DTL 1.35 mg/dL 8:30 AM CDT eGFR-Non 22 (L) >=60 12/29/2019 DTL Black/ mL/min/BSA 8:30 AM CDT [place] Comment: ----ADDITIONAL INFORMATION---- Estimated GFR calculated using the 2009 CKD_EPI creatinine equation. eGFR-Black/ 26 (L) >=60 mL/min/BSA 2019 8:30 AM CDT DTL Comment: ----ADDITIONAL INFORMATION---- Estimated GFR calculated using the 2009 CKD_EPI creatinine equation. Calcium, Total, S 8.1 (L) 8.8 - 10.2 mg/dL 12/29/2019 8:30 AM CDT DTL Glucose, S 220 (H) 70 - 140 mg/dL 12/29/2019 8:30 AM CDT D TL Protein, Total, S 5.9 (L) 6.3 - 7.9 g/dL 12/29/2019 8:30 A M CDT DTL Albumin, S 3.6 3.5 - 5.0 g/dL 12/29/2019 8:30 AM CDT D TL Aspartate Aminotransferase 31 8 - 48 U/L 12/29/2019 8 :30 AM CDT DTL (AST), S Alkaline Phosphatase, S 96 40 - 129 U/L 12/29/2019 8: 30 AM CDT DTL Alanine Aminotransferase 39 7 - 55 U/L 12/29/2019 8:3 0 AM CDT DTL (ALT), S Bilirubin, Total, S 0.3 <=1.2 mg/dL 12/29/2019 8:30 AM CDT DTL Specimen Anatomical Collection Method Collection Time Receive d Time (Source) Location / / Volume Laterality Blood (Blood, 12/29/2019 7:22 AM 12/29/19 8:07 Venous) CDT AM CDT Angélica Granger P.A.-C. LAB BLOOD ADD-ON Performing Organization Address City/[facility] Phon e Number [facility] - [address] Bilirubin, Direct (12/29/2019 7:22 AM CDT) P athologist Signature Bilirubin, <0.2 0.0 - 0.3 12/29/2019 DTL Direct, S mg/dL 8:30 AM CDT Specimen Anatomical Collection Method Collection Time Receive d Time (Source) Location / / Volume Laterality Blood (Blood, 12/29/2019 7:22 AM 12/29/19 8:07 Venous) CDT AM CDT Angélica Granger P.A.-C. LAB BLOOD ADD-ON Performing Organization Address City/[facility] Phon e Number [facility] - [address] documented in this encounter Visit Diagnoses Diagnosis Transplant Liver (HCC) documented in this encounter Additional Health Concerns Assessment Noted Time PHQ-9 Depression Total Score: 3 11/22/2019 7:34 AM CDT documented as of this encounter Care Teams Machine Bunch Maker Relationship Specialty Start Date End Date Elsewhere, Pcp PCP - General Family Medicine 07/29/17 documented as of this encounter
--- OUTSIDE RECORDS SUMMARY | 2022-04-13 12:26 | XMS_ITS | Encounter Summary ---
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 ipratropium (ATROVENT) Administer 2 sprays 0 10/07/201611/13/2020 [...] Disease Stage 4 Glomerular Filtration Rate 15-29 ([facility]) aspirin [address] tablet Take 81 [...] (HCC), daily. Medication Therapy Jail Not Anticoagulant tacrolimus (PROGRAF) 0.5 Take 2 [...] Laboratory Medicine Angélica Granger P.A.-C. [address] [place] [phone] 04/25/2022 Office Visit Otorhinolaryngology Dex Matta APRN, C.N.P., M.S.N. [address] [place] [phone] 05/08/2022 Appointment Laboratory Medicine Angélica Granger P.A.-CDemetrius [address] [place] [address] [phone] 05/08/2022 Clinical Admitting/Central Communication Scheduling 05/10/2022 Appointment Radiology Jeremie Rose M.D. [address] [place] [phone] 05/10/2022 Comprehensive Visit Orthopedic Surgery Warner Graves M.D. [address] [place] [address] [phone] 05/22/2022 Appointment Laboratory Medicine Angélica Granger P.A.-CDemetrius [address] [place] [address] [phone] 06/05/2022 Appointment Laboratory Medicine Angélica Granger P.A.-C. [address] [place] [phone] 06/19/2022 Appointment Laboratory Medicine Angélica Granger P.A.-C. [address] [place] [phone] 07/03/2022 Appointment Laboratory Medicine Angélica Granger P.A.-C. [address] [place] [phone] 07/17/2022 Appointment Laboratory Medicine Angélica Granger P.A.-C. [address] [place] [phone] 07/31/2022 Appointment Laboratory Angélica Royal P.A.-C. [address] [place] [phone] 08/14/2022 Appointment Laboratory Angélica Royal P.A.-C. [address] [place] [phone] 08/28/2022 Appointment Laboratory Angélica Royal P.A.-C. [address] [place] [phone] documented as of this encounter Visit Diagnoses Not on filedocumented in this encounter Additional Health Concerns Infection Onset Date Last Indicated Resolved Time COVID19 Pending 01/26/2020 01/27/2020 01/28/2020 12:12 AM CDT Assessment Noted Time PHQ-9 Depression Total Score: 3 11/22/2019 7:34 AM CDT documented as of this encounter Care Teams Molder Machine Tender Relationship Specialty Start Date End Date Elsewhere, Pcp PCP - General Family Medicine 07/29/17 documented as of this encounter
--- OUTSIDE RECORDS SUMMARY | 2022-04-13 12:26 | XMS_ITS | Encounter Summary ---
:1955 Author Organization [facility] Address [address] [address] Care Team Providers Name Role Phone Elsewhere, Pcp Primary Care Provider Unavailable Reason for Visit Reason Comments Appointment Encounter Details Date Type Department Care Team Description 01/26/2020 Clinical Communication Danita Fields Appointment [facility] for M, M.S.N., Transplantation and RDale., C.C.T. C. 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 Singh, he is aware of the appointment date/times. We also spoke about Covid testing. He would like to go for his test on 01/26. Email sent to [facility] orders. Thank you Telephone Encounter - Meena Aguilar - 01/26/2020 2:42 PM CDT LM for patient to confirm schedule for 01/30. Patient will need covid testing on 01/28. He lives closest to [place] if he is interested in testing there. When patient decides where he would like covid testing done we can send email to test site to place orders. Thank you documented in this encounter Plan of Treatment Upcoming Encounters Date Type Specialty Care Team Description 04/24/2022 Appointment Laboratory Medicine Angélica Granger P.A.-C. [address] [place] [phone] 04/25/2022 Office Visit Otorhinolaryngology GoschDex APRN, C.N.P., M.S.N. [address] [place] [phone] 05/08/2022 Appointment Laboratory Medicine Angélica Granger P.A.-C. [address] [place] [phone] 05/08/2022 Clinical Admitting/Central Communication Scheduling 05/10/2022 Appointment Radiology Jeremie Rose M.D. [address] [place] [phone] 05/10/2022 Comprehensive Visit Orthopedic Surgery Warner Graves M.D. [address] [place] [phone] 05/22/2022 Appointment Laboratory Medicine Angélica Granger P.A.-C. [address] [place] [phone] 06/05/2022 Appointment Laboratory Medicine Angélica Granger P.A.-C. [address] [place] [phone] 06/19/2022 Appointment Laboratory Medicine Angélica Granger P.A.-C. [address] [place] [phone] 07/03/2022 Appointment Laboratory Medicine Angélica Granger P.A.-C. [address] [place] [phone] 07/17/2022 Appointment Laboratory Medicine Angélica Granger P.A.-C. [address] [place] [phone] 07/31/2022 Appointment Laboratory Medicine Angélica Granger P.A.-C. [address] [place] [phone] 08/14/2022 Appointment Laboratory Medicine Angélica Granger P.A.-C. [address] [place] [phone] 08/28/2022 Appointment Laboratory Medicine Angélica Granger P.A.-C. [address] [place] [phone] documented as of this encounter Visit Diagnoses Not on filedocumented in this encounter Additional Health Concerns Assessment Noted Time PHQ-9 Depression Total Score: 3 11/22/2019 7:34 AM CDT documented as of this encounter Care Teams Security And Compliance Project Manager Relationship Specialty Start Date End Date Elsewhere, Pcp PCP - General Family Medicine 07/29/17 documented as of this encounter
--- OUTSIDE RECORDS SUMMARY | 2022-04-13 12:26 | XMS_ITS | Encounter Summary ---
:1955 Author Organization [facility] Address [address] [place] [address] Care Team Providers Name Role Phone Elsewhere, Pcp Primary Care Provider Unavailable Reason for Visit Outpatient (Routine) - Closed Specialty Diagnoses / Procedures Referred By Contact Refer red To Contact Otorhinolaryngology Diagnoses Cough Unspecified Type Drip Post Nasal Transplant Liver [facility]HCC[facility] O[facility]ology - General eConsult PMaryanne., M.S. [address] [place] [address] Referral ID Status Reason Start Date Expiration Date Visits Requ ested Visits Authorized [id number] Closed 01/31/2020 01/30/2021 1 1 Encounter Details Date Type Department Care Team Description 02/01/2020 Internal Department of Toro Pena Cough; E-Consult Otorhinolaryngology samm Galvan M.D. Drip Post Nasal; [place], [place] [address] [place] [address] Transplant Liver (HCC) [address] [place] [phone] Social History Tobacco Use Types Packs/Day Years [...] 12/15/2021 organizations such as adventism groups, unions, [employer] or athletic groups, or school groups? 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 - 02/01/2020 12:45 PM CDT This is an electronic consultation. I did have not seen nor evaluate the patient. Upon review his chart, it appears this is a transplant patient on immunosuppressive therapy. He has symptoms related to postnasal drainage as well as recurrent aspiration pneumonia events. The patient underwent a CT scan today. This CT scan is largely clear from a sinus perspective but does show some mild scattered mucosal thickening. In addition, the inferior turbinates appear generous and there is a congested nasal cavity. I think that a routine medical regimen such as twice per day nasal saline rinses as well as a topical steroid spray would likely be a helpful starting point. If the patient remains quite symptomatic despite this medical therapy and wishes to be seen in person, consideration could be given to inpatientconsultation. This could likely be carried out with Jessica Ramirez or Dotty Burrows in our medical rhinology group. documented in this encounter Plan of Treatment Upcoming Encounters Date Type Specialty Care Team Description 04/24/2022 Appointment Laboratory Medicine Angélcia Granger P.A.-C. [address] [place] [phone] 04/25/2022 Office Visit Otorhinolaryngology Dex Matta APRN, C.N.P., M.S.N. [address] [place] [address] [phone] 05/08/2022 Appointment Laboratory Medicine Angélica Granger P.A.-C. [address] [place] [phone] 05/08/2022 Clinical Admitting/Central Communication Scheduling 05/10/2022 Appointment Radiology Jeremie Rose M.D. [address] [place] [phone] 05/10/2022 Comprehensive Visit Orthopedic Surgery Warner Graves M.D. [address] [place] [phone] 05/22/2022 Appointment Laboratory Medicine Angélica Granger P.A.-C. [address] [place] [phone] 06/05/2022 Appointment Laboratory Medicine Angélica Granger P.A.-C. [address] [place] [phone] 06/19/2022 Appointment Laboratory Medicine Angélica Granger P.A.-C. [address] [place] [phone] 07/03/2022 Appointment Laboratory Medicine Angélica Granger P.A.-C. [address] [place] [phone] 07/17/2022 Appointment Laboratory Medicine Angélica Granger P.A.-C. [address] [place] [phone] 07/31/2022 Appointment Laboratory Medicine Angélica Granger P.A.-C. [address] [place] [phone] 08/14/2022 Appointment Laboratory Medicine Angélica Granger P.A.-C. [address] [place] [phone] 08/28/2022 Appointment Laboratory Medicine Angélica Granger P.A.-C. [address] [place] [phone] documented as of this encounter Visit Diagnoses Diagnosis Cough Unspecified Type Drip Post Nasal Transplant Liver (HCC) documented in this encounter Additional Health Concerns Assessment Noted Time PHQ-9 Depression Total Score: 3 11/22/2019 7:34 AM CDT documented as of this encounter Care Teams Personnel Quality Assurance Auditor Relationship Specialty Start Date End Date Elsewhere, Pcp PCP - General Family Medicine 07/29/17 documented as of this encounter
--- OUTSIDE RECORDS SUMMARY | 2022-04-13 12:26 | XMS_ITS | Encounter Summary ---
:1955 Author Organization [facility] Address [address] [place] [address] Care Team Providers Name Role Phone Elsewhere, Pcp Primary Care Provider Unavailable Encounter Details Date Type Department Care Team Description 12/29/2019 Orders Only Trung Swenson Pne umonia (Primary Dx); [facility] M.S. 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 [address] [place] [phone] 04/25/2022 Office Visit Otorhinolaryngology Dex Matta, RAMONA, C.N.P., M.S.N. [address] [place] [address] [phone] 05/08/2022 Appointment Laboratory Medicine Angélica Granger, P.A.-C. [address] [place] [address] [phone] 05/08/2022 Clinical Admitting/Central Communication Scheduling 05/10/2022 Appointment Radiology Jeremie Rose M.D. [address] [place] [phone] 05/10/2022 Comprehensive Visit Orthopedic Surgery Warner Graves M.D. [address] [place] [phone] 05/22/2022 Appointment Laboratory Medicine Angélica Granger P.A.-C. [address] [place] [phone] 06/05/2022 Appointment Laboratory Medicine Angélica Granger P.A.-C. [address] [place] [phone] 06/19/2022 Appointment Laboratory Medicine Angélica Granger P.A.-C. [address] [place] [phone] 07/03/2022 Appointment Laboratory Medicine Angélica Granger P.A.-C. [address] [place] [phone] 07/17/2022 Appointment Laboratory Medicine Angélica Granger P.A.-C. [address] [place] [phone] 07/31/2022 Appointment Laboratory Medicine Angélica Granger P.A.-C. [address] [place] [phone] 08/14/2022 Appointment Laboratory Medicine Angélica Granger P.A.-C. [address] [place] [phone] 08/28/2022 Appointment Laboratory Medicine Angélica Granger P.A.-C. [address] [place] [phone] documented as of this encounter Results Histoplasma Antigen, Urine (12/30/2019 10:43 AM CDT) [facility] Time Signature Histoplasma Ag Negative Negative 12/31/2019 [facility] Result 12:44 PM CDT Comment: No Histoplasma antigen detected. Repeat testing on a new sample if clinically indicated. This test was performed using the IMMY H istoplasma capsulatum galactomannan EIA. Histoplasma Ag Value 0.00 ng/mL 12/31/2019 12:44 PM CDT [facility] Comment: ----REFERENCE VALUE---- 0.00 - 0.10 = Negative 0.11 - 1.10 = Indeterminate >=1.11 = Positive ----ADDITIONAL INFORMATION---- This test was developed and its performa nce characteristics determined by [facility] in a manner co nsistent with CLIA requirements. This test has not bee n cleared or approved by the U.S. Food and Drug Admin istration. Specimen Anatomical Collection Method Collection Time Receive d Time (Source) Location / / Volume Laterality Urine (Urine, 12/30/2019 10:43 12/30/2019 2:24 Clean Catch) AM CDT PM CDT Trung Plasencia P.A.-C. M.S. LAB URINE ORDERABLES Performing Organization Address [facility] Phon e Number [facility] [address] [place]ILLO [address] [place] [address] Laboratory Medicine and Pathology [address] [place] [address] Dr. MURILLO Aspergillus Ag (12/30/2019 9:51 AM CDT) athologist Signature Aspergillus Ag, <0.500 <0.5 index 12/31/2019 [facility] S 8:05 AM CDT Comment: ----ADDITIONAL INFORMATION---- This is a qualitative test and the resul onel index value is not indicative of disease severity. ??Serial testing is re commended for patients at high risk for invasive aspergillosis. This assay was performed using the FDA-c leared [employer] Platelia Aspergillus Galactomannan EIA. Specimen Anatomical Collection Method Collection Time Receive d Time (Source) Location / / Volume Laterality Blood (Blood, 12/30/2019 9:51 AM 12/30/19 20 Venous) CDT 12:33 PM CDT Trung Plasencia P.A.-C., M.S. LAB MICROBIOLOGY - BLOOD O RDERABLES Performing Organization Address [facility]/ZIP Code Phon e Number [facility] [address] CHIDI Santamaria [facility] [address] [facility] [place] [address] Laboratory Medicine and Pathology [address] [place] [address] Dr. MURILLO (1, 3) Gogx-I-Ltoslp (Fungitell), Serum (12/30/2019 9:51 AM CDT) [facility] Method Time Signature (1, 3) <31 <60 pg/mL 12/31/2019 [facility] Gyvj-R-Qqmzqz, pg/mL 10:11 AM CDT Quantitative (1, 3) Negative Negative 12/31/2019 [facility] Ntoh-J-Fexuzf, 10:11 AM CDT Qualitative Comment: No (1, 3) Zhxq-E-Zjzfni detected. ?? This assay does not detect certain fungi , including Cryptococcus species, which produce very low levels of (1, 3) Sekb-U-Ddtiow (BDG) and the Mucorales (e.g., Lichthemia, Mucor and Rhizopus), which are not known to produce BDG. Additionally, the yeast phase of Blastom yces dermatitidis produces little BDG and may not be detected by this assay. ----ADDITIONAL INFORMATION---- This assay was performed using the FDA-c [facility] Fungitell Assay ([facility], [place], [place], [place]), a [facility] HARRIET based on modification of the Limulus Amebocyte Lysate pathway. Specimen Anatomical Collection Method Collection Time Receive d Time (Source) Location / / Volume Laterality Blood (Blood, 12/30/2019 9:51 AM 12/30/19 20 Venous) CDT 12:59 PM CDT Trung Plasencia P.A.-C., M.S. LAB MICROBIOLOGY - BLOOD O RDERABLES Performing Organization Address City/State/ZIP Code Phon e Number [facility] [address] CHIDI Santamaria [facility] [address] [facility] [place] [address] Laboratory Medicine and Pathology [address] [place] [address] Dr. MURILLO Coccidioides Ab w/ Reflex (12/30/2019 9:51 AM CDT) [facility] Method Time Signature Coccidioides Ab Negative Negative 12/30/2019 [facility] Screen, S 7:59 PM CDT Comment: A single negative result does not exclud e the diagnosis of coccidiomycosis. ??Repeat t esting on a new sample in 7-14 days if clinically in dicated. ----ADDITIONAL INFORMATION---- This test has been modified from the man ufacturer's instructions. Its performance characteri stics were determined by [facility] in a manner co nsistent with CLIA requirements. This test has not bee n cleared or approved by the U.S. Food and Drug Admin istration. Specimen Anatomical Collection Method Collection Time Receive d Time (Source) Location / / Volume Laterality Blood (Blood, 12/30/2019 9:51 AM 12/30/19 Venous) CDT 12:53 PM CDT Trung Plasencia P.A.-C. M.SDemetrius LAB MICROBIOLOGY - BLOOD O GLADYS Performing Organization Address [facility] Phon e Number [facility] [address] [place] [address] [address] [facility] [place] [address] Laboratory Medicine and Pathology [address] [place] [address] Dr. MURILLO Blastomyces Ab, EIA (12/30/2019 9:51 AM CDT) [facility] [employer] Method Time Signature Blastomyces Ab, Negative Negative 12/30/2019 [facility] EIA, S 7:59 PM CDT Comment: A single negative result does not exclud e the diagnosis of blastomycosis. ??Repeat testing on a new sample in 7-14 days if clinically indicated. Specimen Anatomical Collection Method Collection Time Receive d Time (Source) Location / / Volume Laterality Blood (Blood, 12/30/2019 9:51 AM 12/30/19 Venous) CDT 12:53 PM CDT Trung Plasencia P.A.-C., M.SDemetrius LAB MICROBIOLOGY - BLOOD O GLADYS Performing Organization Address City/[facility]/ZIP Code Phon e Number [address] [place] [address] [address] [facility] [place] [address] Laboratory Medicine and Pathology [address] [place] [address] Dr. MURILLO Cryptococcus Antigen Screen with Titer (12/30/2019 9:51 AM CDT) [facility] Method Time Signature Cryptococcus Ag Negative Negative 12/30/2019 [facility] Screen w/Titer, 2:07 PM CDT S Comment: A single negative result does not exclud e the diagnosis of cryptococcosis. ?? Repeat testing on a new sample if clinic ally indicated. ----ADDITIONAL INFORMATION---- This assay was performed using the FDA-c leared IMMY Cryptococcus Antigen Lateral Flow Assay. Specimen Anatomical Collection Method Collection Time Receive d Time (Source) Location / / Volume Laterality Blood (Blood, 12/30/2019 9:51 AM 12/30/19 Venous) CDT 12:36 PM CDT Trung Plasencia P.A.-C., M.SDemetrius LAB MICROBIOLOGY - BLOOD O RDTK Performing Organization Address [facility] Phon e Number [facility] [address] [place] [address] [address] [facility] [place] [address] Laboratory Medicine and Pathology [address] [place] [address] Dr. MURILLO Histoplasma Ab (12/30/2019 9:51 AM CDT) [facility] Method Time Signature Histoplasma Negative Negative 01/02/2020 [facility] Mycelial 4:02 PM CDT Histoplasma Yeast Negative Negative [facility]/02[facility] 4:02 PM [facility]T Histoplasma Negative Negative 01/02/2020 [facility] Immunodiffusion 4:02 PM CDT Comment: A negative complement fixation and immun odiffusion (CF/ID) result does not exclude the diagnosis of histoplasmosis. ??Repeat testing by CF/ID in 1-2 weeks if clinically indicated. Specimen Anatomical Collection Method Collection Time Receive d Time (Source) Location / / Volume Laterality Blood (Blood, 12/30/2019 9:51 AM 12/30/19 Venous) CDT 12:34 PM CDT Trung Plasencia P.A.-C., M.SDemetrius LAB MICROBIOLOGY - BLOOD O RDTK Performing Organization Address [facility] Phon e Number [address] [place] [address] [address] [facility] [place] [address] Laboratory Medicine and Pathology [address] [place] [address] Dr. MURILLO documented in this encounter Visit Diagnoses Diagnosis Pneumonia - Primary Chronic Cough Fever Of Unknown Origin documented in this encounter Additional Health Concerns Assessment Noted Time PHQ-9 Depression Total Score: 3 11/22/2019 7:34 AM CDT documented as of this encounter Care Teams Database Administration Manager Relationship Specialty Start Date End Date Elsewhere, Pcp PCP - General Family Medicine 07/29/17 documented as of this encounter
--- OUTSIDE RECORDS SUMMARY | 2022-04-13 12:26 | XMS_ITS | Encounter Summary ---
:1955 Author Organization [facility] Address [address] [place] [address] Care Team Providers Name Role Phone Elsewhere, Pcp Primary Care Provider Unavailable Reason for Referral Outpatient (Routine) - Closed Specialty Diagnoses / Procedures Referred By Contact Refer red To Contact Otorhinolaryngology Diagnoses Cough Unspecified Type Drip Post Nasal Transplant Liver (HCC) Trung Plasencia, [facility] Procedures Otorhinolaryngology - General eConsult Edmundo, M.S. [address] [place] [address] Referral ID Status Reason Start Date Expiration Date Visits Requ ested Visits Authorized [id number] Closed 01/31/2020 01/30/2021 1 1 MRI/CAT/PET Scan (Routine) - Closed Specialty Diagnoses / Procedures Referred By Contact Refer red To Contact Radiology Diagnoses Cough Unspecified Type Drip Post Nasal Trung Plasencia P.A.-C., [facility] Procedures CT Sinuses without IV Contrast M.S. [address] [place], [place] [address] Referral ID Status Reason Start Date Expiration Date Visits Requ ested Visits Authorized [id number] Closed 01/31/2020 01/30/2021 1 1 Reason for Visit Transplant (Routine) - Closed Specialty Diagnoses / Procedures Referred By Contact Refer red To Contact Transplant Surgery / Diagnoses Cough Unspecified Type Transplant Liver (HCC) Trung Plasencia, [facility] Transplant PAdilia, M.S. [address] [place] [address] Referral ID Status Reason Start Date Expiration Date Visits Requ ested Visits Authorized [id number] Closed 01/26/2020 01/25/2021 1 1 Encounter Details Date Type Department Care Team Description 01/31/2020 Office Visit Trung Swenson Cough (Primary Dx); [facility] Edmundo Stern, Drip Post Nasal ; Transplantation and M.S. 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 - 01/31/2020 2:00 PM CDT DEMOGRAPHIC INFORMATION Patient Name: Bruce Singh Clinic Number: [id number] Age: 64 y.o. Birthdate: 1955 Sex: male Service Date/Time: 01/31/20 9:07 AM CDT TRANSPLANT INFECTIOUS DISEASES SERVICE - Consult Note Referral Source: Trung Plasencia P.A.-C., M.S. CHIEF COMPLAINT/PURPOSE OF VISIT Return visit: Return of cough and low grade fever in a liver transplant recipient. Recurrent aspiration pneumonia. Sinus congestion/post nasal drip. HISTORY OF PRESENT ILLNESS Mr. Bruce Singh is a 64 year old gentleman from [place], [place] s/p orthotopic liver transplantation, May 25, [...] with tacrolimus, prednisone and CellCept. Mr. Singh presented to me in early December, with complaints of a cough for the last 2.5-3 months. He coughs throughout the day and night. He complained of post nasal drip and had low grade fever. He has a history of sinus congestion and had been followed by an outside ENT provider but wishes to transfer his ENT care here. He previously described coughing up sputum that was milky in color or sometimes dark chocolate, bloody. He noted shortness of breath and increased fatigue. He told me that when he brushes his teeth he will vomit on occasion. Chest x-ray on November 22, 2019 was [...] albuterol 2 puffs 3-4 times daily along with a short 5 day course of prednisone taper without any benefit. He also completed a 5 day course of empiric levofloxacin without benefit. A bronchoscopy with BAL was performed on December 15, 2019 and BAL from left lower lobe was obtained. There were bilateral scattered mucopurulent secretions. All ICH studies were negative. Fungal culture yielded Penicillium sp and few dematiaceous fungus; likely not of any clinical significance. A repeat CT chest was done on December 29, 2019 and showed a new area of consolidation in the left lung base with surrounding tree-in-bud micronodules and scattered throughout the left lower lobe. New tree-in-bud micronodules in the anterior right lower lobe. Diffuse bronchial wall thickening. No adenopathy. Radiology raised the possibility of aspiration pneumonia. He was given a course of Augmentin and had noticeable improvement in his cough and resolution of fever. Unfortunately his cough has returned and he had some low grade fever 100 F, a couple of days ago. Hehas not had any further emesis associated with brushing of his teeth but he does related two episodes of waking up at night violently coughing. He continues to complain of post nasal drip. Repeat CT chest January 31, 2020 shows mixed results with significant improvement in left lower lobe infiltrates but new focal consolidation in the right lower lobe medially. Mr. Singh was receiving Flonase, Singulair, Claritin and nasal saline rinses previously but stopped the Flonase and nasal saline rinses. I have ordered a CT sinuses for tomorrow and put in for an Econsult with ENT to review his case and seewhat their recommendations are for long-term management. He has appointments with Pulmonary Medicinein their cough clinic but I am going to cancel these as I think we have an answer to explain his recurring symptoms. Allergies Allergen Reactions ??? Cefixime Diarrhea ??? Ciprofloxacin Other (see comments) Tendon pain ??? Citalopram Other (see comments) michell ??? Erythromycin Base Other (see comments) Due to medications ??? Olanzapine Other (see comments) Joint pain ??? Quetiapine Edema Muscle pain and swelling VITALS: Temperature - 36.1 C Weight - 79.4 PHYSICAL EXAMINATION General: Not toxic or in any distress. Very pleasant and cooperative. Occasional cough. Respirationsunlabored at rest. Oriented x 3. Head: AT/NC. Eyes: Sclerae non-icteric. Conjunctivae are non-injected. EOM's intact. Lungs: Good air exchange throughout. Occasional scattered rhonchi. No adventitious sounds. Extremities: No edema. Mentation: Normal mood and affect. Gait: Normal. Ambulates without difficulty or assistance. Lines/Catheters: None. Other devices: None. DIAGNOSTICS LABORATORY I have reviewed the patient's current pertinent laboratory, imaging, and other diagnostic studies which are available in [facility] and [facility] respectively. January 31, 2020 Labs: Hemoglobin 10.4, hematocrit 31.7, platelet count 209, white blood cell count 6.3, neutrophils 4.61, lymphocytes 0.95, sodium 135, potassium 4.2, chloride 95, bicarbonate 25, BUN 42, creatinine 2.70, estimated GFR 24, total calcium 8.7, glucose 227, total bilirubin 0.3, ALT 23, AST 23, alkaline phosphatase 111, albumin 3.8. MICROBIOLOGY December 30, 2019 serum aspergillus antigen <0.500, fungal serologies (Histo, Blastomyces, and cryptococcus) negative, Fungitell assay <31. December 29, 2019 sputum Gram stain-no organism seen. Few white blood cells. Bacterial culture: Usual efrem. December 15, 2019 BAL ICH protocol: Full report in epic. All studies negative with the exception of fungal culture which shows penicillium species and few Dematiaceous fungus of unclear significance. Fungal susceptibilities on the penicillium species were performed. Cytology showed acute inflammation. Negative for malignancy. DIAGNOSTIC IMAGING January 31, 2020 CT chest: New focal consolidation within the anterior and medial right lower lobe with surrounding micro nodularity in the region of previous endobronchial plugging. Interval improvement in the left lower lobe consolidation. Similar bilateral bronchial wall thickening and multifocal end obronchial plugging with some areas increased in others decreased. Similar right middle lobe micro nodules. Tiny calcified pulmonary granulomas. No pneumothorax or pleural effusion. No significant hilar, mediastinal or axillary lymphadenopathy. 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 DISCUSSION Mr. Singh completed a course of oral Augmentin for possible aspiration pneumonia. Given his history of vomiting with teeth brushing, negative bacterial cultures and findings on chest imaging, aspiration pneumonia is a possibility. I am concerned about the clear worsening of the CT along with his continued symptoms. I think we should get a CT of his sinuses at some point as he may benefit from ENT exam and cleaning out of his sinuses. I have also given him a prescription for oral vancomycin 125 mg twice daily preemptively given his history of C. Difficile infection in the past. 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 Sputum for gram's stain and bacterial culture, ordered. 2. Re-start Augmentin 500 mg twice daily (renal dose adjusted) x 21 days for aspiration pneumonia. 3. Oral vancomycin 125 mg twice daily preemptively for 28 days, while on systemic antibiotic. 4. CT sinuses scheduled for tomorrow. 5. ENT Econsultation for advice on long-term management of chronic rhinosinusitis and post nasal drip 6. Cancel appointments in Pulmonary Medicine cough clinic. 7. May benefit from fckk-bc-kzdx ENT consultation depending upon results of CT sinuses. Thank you for the opportunity to participate in the care of Mr. Singh. Prescriptions for Augmentin and oral Vancomycin electronically generated to patients local pharmacy. Trung Plasencia P.A.-C., M.S. documented in this encounter Plan of Treatment Upcoming Encounters Date Type Specialty Care Team Description 04/24/2022 Appointment Laboratory Medicine Angélica Granger P.A.-C. [address] [place] [phone] 04/25/2022 Office Visit Otorhinolaryngology Dex Matta APRN, C.N.P., M.S.N. [address] [place] [phone] 05/08/2022 Appointment Laboratory Medicine Angélica Granger P.A.-C. [address] [place] [phone] 05/08/2022 Clinical Admitting/Central Communication Scheduling 05/10/2022 Appointment Radiology Jeremie Rose M.D. [address] [place] [phone] 05/10/2022 Comprehensive Visit Orthopedic Surgery Warner Graves M.D. [address] [place] [phone] 05/22/2022 Appointment Laboratory Medicine Angélica Granger P.A.-C. [address] [place] [phone] 06/05/2022 Appointment Laboratory Medicine Angélica Granger P.A.-C. [address] [place] [phone] 06/19/2022 Appointment Laboratory Medicine Angélica Granger P.A.-C. [address] [place] [phone] 07/03/2022 Appointment Laboratory Medicine Angélica Granger P.A.-C. [address] [place] [phone] 07/17/2022 Appointment Laboratory Medicine Angélica Granger P.A.-C. [address] [place] [phone] 07/31/2022 Appointment Laboratory Medicine Angélica Granger P.A.-C. [address] [place] [phone] 08/14/2022 Appointment Laboratory Medicine Angélica Granger P.A.-CDemetrius [address] [place] [phone] 08/28/2022 Appointment Laboratory Medicine Angélica Granger P.A.-C. [address] [place] [phone] documented as of this encounter Results (ABNORMAL) Bacterial Culture, Aerobic + Susc, Resp (02/01/2020 10:37 AM CDT) [facility] Method Time Signature Bacterial With usual 02/04/2020 DTL Culture, efrem (A) 1:50 PM CDT Aerobic, Resp Bacterial SERRATIA MARCESCENS 02/04/2020 DTL Culture, 1+ 1:50 PM CDT Aerobic, Resp (A) Comment: This organism may contain an inducible b eta-lactamase. Penicillin or second- or third-generatio n cephalosporin monotherapy may result in the emergence of high-level resistance. Preferred empiric therapy, p ending antimicrobial susceptibility results, is cefepime, a f luoroquinolone, or a carbapenem, unless clinically contr aindicated. Specimen Anatomical Collection Method Collection Time Receive d Time (Source) Location / / Volume Laterality Sputum (Sputum) 02/01/2020 10:37 02/01/20 20 AM CDT 10:37 AM CDT Comment: Specimen Source Site: Sputum [...] <=0.5/9.5 mc g/mL: Sulfamethoxazole DAVID (MCG/ML) Susceptible Trung Plasencia P.A.-C. M.S. LAB MICROBIOLOGY - GENERAL ORDERABLES Performing Organization Address City/[facility] Phon e Number [facility] - 200 [place], [place] [address] [place] [address] Laboratories-[facility] 200 [facility] Gram Stain (02/01/2020 10:37 AM CDT) athologist Signature Gram Stain Mixed efrem. 02/01/2020 DTL White blood cells, Moderate. 11:27 AM CD T Specimen Anatomical Collection Method Collection Time Receive d Time (Source) Location / / Volume Laterality Sputum (Sputum) 02/01/2020 10:37 02/01/20 20 AM CDT 10:37 AM CDT Comment: Specimen Source Site: Sputum Trung Plasencia P.A.-C. M.S. LAB MICROBIOLOGY - GENERAL ORDERABLES Performing Organization Address City/[facility] Phon e Number [facility] - [address] [place], [place] [address] [place] [address] [facility] Sinuses without IV Contrast (02/01/2020 9:27 AM CDT) Anatomical Region Laterality Modality Head, Neuroradiology RST LOS, N/A Computed T omography, Computed Neuroradiology ARZ LOS, Neuroradiology T omography FLA LOS Specimen (Source) Anatomical Collection Method Collection Time Re ceived Time Location / / Volume Laterality 02/01/2020 9:40 AM CDT Impressions 02/01/2020 10:31 AM CDT Compared to 08/12/2016, overall improved aeration of the paranasal sinuses. Mild-moderate mucosal thickenin g of the anterior ethmoid air cells; the remainder of the paranasal sinuses are o therwise largely clear. Narrative 02/01/2020 10:31 AM CDT EXAM: CT SINUSES WITHOUT IV CONTRAST COMPARISON: Maxillofacial CT 08/20/2016 and MRI brain 02/10/2018 FINDINGS: Compared to 08/12/2016, overall improved aeration of the paranasal sinuses. Minimal mucosal thickening of the right frontal sinus. The left frontal sinus is clear. Mild-moderate mucosal thickening of the anterior ethmoid air cells. The sphenoid and posterior ethmoid sinuses a re clear. Mild mucosal thickening of the left maxillary sinus. The right maxillar y sinus is clear. The right ostiomeatal unit is patent. Mucosal narrowing of the left maxillary ostium. The frontal and sphenoethmoidal recesses are clear. Para nasal sinus osteitis again demonstrated, most prominent about the right maxillary sinus. Mild mucosal hypertrophy involving the inferior turbinates. No na tika cavity mass. The retromaxillary fat is clear. Postsurgical change with plate fixation across both zygoma, inferior orbital rims, anterior maxilla, and nasal bones again demonstrated. The mastoid air cells are clear. Right m astoid has cleared from the prior. Procedure Note Otoniel Jenkins M.D. - 02/01/2020Format ting of this note might be different from the original. EXAM: CT SINUSES WITHOUT IV CONTRAST COMPARISON: Maxillofacial CT 08/20/2016 and MRI brain 02/10/2018 FINDINGS: Compared to 08/12/2016, overall improved aeration of the paranasal sinuses. Minimal mucosal thickening of the right frontal sinus. The left frontal sinus is clear. Mild-moderate mucosal thickening of the anterior ethmoid air cells. The sphenoid and posterior ethmoid sinuses a re clear. Mild mucosal thickening of the left maxillary sinus. The right maxillar y sinus is clear. The right ostiomeatal unit is patent. Mucosal narrowing of the left maxillary ostium. The frontal and sphenoethmoidal recesses are clear. Para nasal sinus osteitis again demonstrated, most prominent about the right maxillary sinus. Mild mucosal hypertrophy involving the inferior turbinates. No na tika cavity mass. The retromaxillary fat is clear. Postsurgical change with plate fixation across both zygoma, inferior orbital rims, anterior maxilla, and nasal bones again demonstrated. The mastoid air cells are clear. Right m astoid has cleared from the prior. IMPRESSION: Compared to 08/12/2016, overall improved aeration of the paranasal sinuses. Mild-moderate mucosal thickenin g of the anterior ethmoid air cells; the remainder of the paranasal sinuses are o therwise largely clear. Trung Plasencia P.A.-C., M.S. IMG CT PROCEDURES documented in this encounter Visit Diagnoses Diagnosis Cough Unspecified Type - Primary Drip Post Nasal Transplant Liver (HCC) Pneumonitis Due To Inhalation Of Food An d Vomit (HCC) Abnormal Computed Tomography Chest Rhinosinusitis Chronic Cough Unspecified Type Drip Post Nasal documented in this encounter Additional Health Concerns Assessment Noted Time PHQ-9 Depression Total Score: 3 11/22/2019 7:34 AM CDT documented as of this encounter Care Teams Charge Auditor Relationship Specialty Start Date End Date Elsewhere, Pcp PCP - General Family Medicine 07/29/17 documented as of this encounter
--- OUTSIDE RECORDS SUMMARY | 2022-04-13 12:26 | XMS_ITS | Encounter Summary ---
:1955 Author Organization [facility] Address [address] [place] [address] Care Team Providers Name Role Phone Elsewhere, Pcp Primary Care Provider Unavailable Reason for Referral MRI/CAT/PET Scan (Routine) - Closed Specialty Diagnoses / Procedures Referred By Contact Refer red To Contact Radiology Diagnoses Cough Unspecified Type Drip Post Nasal Trung Plasencia P.A.-C., [facility] Procedures CT Sinuses without IV Contrast M.S. [address] [place] [address] Referral ID Status Reason Start Date Expiration Date Visits Requ ested Visits Authorized [id number] Closed 01/31/2020 01/30/2021 1 1 Reason for Visit MRI/CAT/PET Scan (Routine) - Closed Specialty Diagnoses / Procedures Referred By Contact Refer red To Contact Radiology Diagnoses Cough Unspecified Type Drip Post Nasal Trung Plasencia P.A.-C., [facility] Procedures CT Sinuses without IV Contrast M.S. [address] [place] [address] Referral ID Status Reason Start Date Expiration Date Visits Requ ested Visits Authorized [id number] Closed 01/31/2020 01/30/2021 1 1 Encounter Details Date Type Department Care Team Description 02/01/2020 Hospital Encounter Department of Trung Plasencia Cough ; Radiology, Bonny Goode P.A.-C..S . Drip Post Nasal Building, in [place], 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 [address] [place] [phone] 04/25/2022 Office Visit Otorhinolaryngology Dex Matta APRN C.N.P., M.S.N. [address] [place] [phone] 05/08/2022 Appointment Laboratory Medicine Angélica Granger P.A.-C. [address] [place] [phone] 05/08/2022 Clinical Admitting/Central Communication Scheduling 05/10/2022 Appointment Radiology Jeremie Rose M.D. [address] [place] [phone] 05/10/2022 Comprehensive Visit Orthopedic Surgery Warner Graves M.D. [address] [place] [phone] 05/22/2022 Appointment Laboratory Medicine Angélica Granger P.A.-C. [address] [place] [phone] 06/05/2022 Appointment Laboratory Medicine Angélica Granger P.A.-C. [address] [place] [phone] 06/19/2022 Appointment Laboratory Medicine Angélica Granger P.A.-C. [address] [place] [phone] 07/03/2022 Appointment Laboratory Medicine Angélica Granger P.A.-C. [address] [place] [phone] 07/17/2022 Appointment Laboratory Medicine Angélica Granger P.A.-C. [address] [place] [phone] 07/31/2022 Appointment Laboratory Medicine Angélica Granger P.A.-C. [address] [place] [phone] 08/14/2022 Appointment Laboratory Medicine Angélica Granger P.A.-C. [address] [place] [phone] 08/28/2022 Appointment Laboratory Medicine Angélica Granger P.A.-C. [address] [place] [phone] documented as of this encounter Procedures Procedure Name Priority Date/Time Associated Comments Diagnosis CT SINUSES RAD - Routine 02/01/2020 9:27 Cough Results for this WITHOUT IV (most inpatients AM CDT Drip Post Nasal procedur e are in CONTRAST and all the results outpatients) section. documented in this encounter Results CT Sinuses without IV Contrast (02/01/2020 9:27 AM CDT) Anatomical Region Laterality Modality Head, Neuroradiology RST LOS, N/A Computed T omography, Computed Neuroradiology ARZ LOS, Neuroradiology T omography FLA [facility] Specimen (Source) Anatomical Collection Method Collection [...] Diagnosis Cough Unspecified Type Drip Post Nasal documented in this encounter Additional Health Concerns Assessment Noted Time PHQ-9 Depression Total Score: 3 11/22/2019 7:34 AM CDT documented as of this encounter Care Teams Hl7 Interface Developer Relationship Specialty Start Date End Date Elsewhere, Pcp PCP - General Family Medicine 07/29/17 documented as of this encounter
--- OUTSIDE RECORDS SUMMARY | 2022-04-13 12:26 | XMS_ITS | Encounter Summary ---
:[address] [facility] Address [address] [place] [address] Care Team Providers Name Role Phone Elsewhere, Pcp Primary Care Provider Unavailable Reason for Visit Reason Comments Medical Management Encounter Details Date Type Department Care Team Description 02/02/2020 Documentation Trung Swenson, [place] [facility] PColt Savage, M.S. 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 - 02/02/2020 10:18 AM CDT DEMOGRAPHIC INFORMATION Patient Name: Bruce Singh Clinic Number: [id number] Age: 64 y.o. Birthdate: 1955 Sex: male Service Date/Time: 02/02/20 10:20 AM CDT Transplant Infectious Diseases Consultation Service-Miscellaneous Note CHIEF COMPLAINT Cough, presumed recurrent aspiration pneumonia. HISTORY OF PRESENT ILLNESS Mr. Singh was seen by me in the clinic on January 31, 2020 for recurrent cough and abnormal CT chest imaging. He responded well to a course of Augmentin but off antibiotic his cough has returned and repeat CT chest shows a new area of focal consolidation involving the anterior and medial right lower lobe. The left lower lobe infiltrates noted on the previous CT chest dated December 29, 2019 are significantly improved. His history and mixed CT chest findings with waxing and waning areas of infiltrate isconcerning for recurrent aspiration pneumonia. He also complains of post nasal drip and nasal congestion so a CT sinuses was obtained and completed yesterday. He has a long-standing history of sinus con gestion and has been followed by ENT locally. CT sinuses showed overall improvement in the aeration of the paranasal sinuses compared to the prior study dated August 12, 2016. There is mild-moderate mucosal thickening of the anterior ethmoid air cells. Post surgical change with plate fixation acrossboth zygoma, inferior orbital rims, anterior maxilla and nasal bones. ENT Econsultation was completed yesterday by Dr. Pena. He recommended twice daily nasal saline rinses and topical steroid spray. He continues to be symptomatic despite these interventions, a [id number] visit with ENT medical rhinology group was recommended. I called and spoke to Mr. Singh this morning by telephone. He is stable but has noticed some occasional loose stool. We discussed antibioticassociated diarrhea as well as C. Difficile infection associated with antibiotic usage. He does havea history of C. Difficile infection and is on pre-emptive oral vancomycin 125 mg twice daily while on Augmentin. If his diarrhea worsens he is to notify his bereavement program coordinator and I would suggest getting a GI pathogen panel PCR. He started back on Flonase this morning. He will go back on nasal saline rinses twice daily. He is otherwise feeling well without fever. Did have quite a bit of coughing this morning he said. I think he should undergo a formal work-up for aspiration. I will defer this back to the liver transplant service to arrange. Trung Plasencia P.A.-C., M.S. documented in this encounter Plan of Treatment Upcoming Encounters Date Type Specialty Care Team Description 04/24/2022 Appointment Laboratory Medicine Angélica Granger P.A.-C. [address] [place] [phone] 04/25/2022 Office Visit Otorhinolaryngology Dex Matta APRN, C.N.P., M.S.N. [address] [place] [phone] 05/08/2022 Appointment Laboratory Medicine Angélica Granger P.A.-C. [address] [place] [phone] 05/08/2022 Clinical Admitting/Central Communication Scheduling 05/10/2022 Appointment Radiology Jeremie Rose M.D. [address] [place] [phone] 05/10/2022 Comprehensive Visit Orthopedic Surgery Warner Graves M.D. [address] [place] [phone] 05/22/2022 Appointment Laboratory Medicine Angélica Granger P.A.-C. [address] [place] [phone] 06/05/2022 Appointment Laboratory Medicine Angélica Granger P.A.-C. [address] [place] [phone] 06/19/2022 Appointment Laboratory Medicine Angélica Granger P.A.-C. [address] [place] [phone] 07/03/2022 Appointment Laboratory Medicine Angélica Granger P.A.-C. [address] [place] [phone] 07/17/2022 Appointment Laboratory Medicine Angélica Granger P.A.-C. [address] [place] [phone] 07/31/2022 Appointment Laboratory Medicine Angélica Granger P.A.-C. [address] [place] [phone] 08/14/2022 Appointment Laboratory Medicine Angélica Granger P.A.-C. [address] [place] [phone] 08/28/2022 Appointment Laboratory Medicine Angélica Granger P.A.-C. [address] [place] [address] documented as of this encounter Visit Diagnoses Not on filedocumented in this encounter Additional Health Concerns Assessment Noted Time PHQ-9 Depression Total Score: 3 11/22/2019 7:34 AM CDT documented as of this encounter Care Teams Drawer Liner Relationship Specialty Start Date End Date Elsewhere, Pcp PCP - General Family Medicine 07/29/17 documented as of this encounter
--- OUTSIDE RECORDS SUMMARY | 2022-04-13 12:26 | XMS_ITS | Encounter Summary ---
:1955 Author Organization [facility] Address [address] [place] [address] Care Team Providers Name Role Phone Elsewhere, Pcp Primary Care Provider Unavailable Reason for Visit Outpatient (Routine) - Closed Specialty Diagnoses / Procedures Referred By Contact Refer red To Contact Pulmonary Medicine Diagnoses Transplant Liver (HCC) Angélica Granger, [facility] P.A.-C. [address] [place] [phone] Referral ID Status Reason Start Date Expiration Date Visits Requ ested Visits Authorized [id number] Closed 12/27/2019 12/26/2020 1 1 Encounter Details Date Type Department Care Team Description 12/29/2019 Comprehensive Visit Curt Diaz, [facility] for Leonid Stern, (HCC) Transplantation and [facility] [address] [place] [address] in 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 - 12/29/2019 11:00 AM CDT Follow-up testing. Mr. Singh returns. He continues to have fever ranging from 99-101. He has had previous COVID testing which was negative (12/13/2019) prior to his bronchoscopy). A chest CT scan was done earlier today and shows a new patchy infiltrate in the left lower lobe. White blood cell count is normal but a little higher than previous values. He continues to have low-grade fever. He does produce some brownish sputum with some blood intermittently. We still have cultures pending number previous bronchoscopy. Sensitivities were requested for the fungal species that were growing. We are going to repeat the sputum culture today and he is goingto see Mr. Trung lPasencia tomorrow. In my opinion he is not ill enough to require hospitalization nor does he feel that that is necessary also. However, I do not want to start any new antibiotics until wehave more information. Exam No acute distress. Heart regular rhythm not tachycardic. Lungs are abnormal was a minute diminished breath sounds in the left base. No bronchospasm. No egophony. Impression and plan. A new infiltrate in the left lower lobe compared to the CT scan of November 23, 2019. One questions whether this could possibly be related to reflux and aspiration. He does have some sinus drainage. We do have sensitivities pending on the previous bronchoscopy results, however I do agree that a repeat sputum culture as well as visit with Infectious Disease would be most appropriate. Mr. Singh agrees with this approach. I did discuss this with . All questions were answered. 25 minutes counseling/40 minutes total time documented in this encounter Plan of Treatment Upcoming Encounters Date Type Specialty Care Team Description 04/24/2022 Appointment Laboratory Medicine Angélica Granger P.A.-C. [address] [place] [phone] 04/25/2022 Office Visit Otorhinolaryngology Dex Matta, RAMONA, C.N.P., M.S.N. [address] [place] [phone] 05/08/2022 Appointment Laboratory Medicine Angélica Granger P.A.-C. [address] [place] [phone] 05/08/2022 Clinical Admitting/Central Communication Scheduling 05/10/2022 Appointment Radiology Jeremie Rose M.D. [address] [place] [phone] 05/10/2022 Comprehensive Visit Orthopedic Surgery Warner Graves M.D. [address] [place] [phone] 05/22/2022 Appointment Laboratory Angélica Royal P.A.-C. [address] [place] [phone] 06/05/2022 Appointment Laboratory Medicine Angélica Granger P.A.-C. [address] [place] [phone] 06/19/2022 Appointment Laboratory Angélica Royal P.A.-C. [address] [place] [phone] 07/03/2022 Appointment Laboratory Angélica Royal P.A.-C. [address] [place] [phone] 07/17/2022 Appointment Laboratory Angélica Royal P.A.-C. [address] [place] [phone] 07/31/2022 Appointment Laboratory Medicine Angélica Granger P.A.-C. [address] [place] [phone] 08/14/2022 Appointment Laboratory Angélica Royal P.A.-C. [address] [place] [phone] 08/28/2022 Appointment Laboratory Medicine Angélica Granger P.A.-C. [address] [place] [phone] documented as of this encounter Visit Diagnoses Diagnosis Transplant Liver (HCC) documented in this encounter Additional Health Concerns Assessment Noted Time PHQ-9 Depression Total Score: 3 11/22/2019 7:34 AM CDT documented as of this encounter Care Teams Sex Crimes Detective Relationship Specialty Start Date End Date Elsewhere, Pcp PCP - General Family Medicine 07/29/17 documented as of this encounter
--- OUTSIDE RECORDS SUMMARY | 2022-04-13 12:27 | XMS_ITS | Encounter Summary ---
:1955 Author Organization [facility] Address [address] [place] [address] Care Team Providers Name Role Phone Elsewhere, Pcp Primary Care Provider Unavailable Encounter Details Date Type Department Care Team Description 12/06/2019 Orders Only Blanca Luis [facility] for M, R.N. 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 [address] [place] [phone] 04/25/2022 Office Visit Otorhinolaryngology Dex Matta APRN, C.N.P., M.S.N. [address] [place] [phone] 05/08/2022 Appointment Laboratory Medicine Angélica Granger P.A.-C. [address] [place] [phone] 05/08/2022 Clinical Admitting/Central Communication Scheduling 05/10/2022 Appointment Radiology Jeremie Rose M.D. [address] [place] [phone] 05/10/2022 Comprehensive Visit Orthopedic Surgery Warner Graves M.D. [address] [place] [phone] 05/22/2022 Appointment Laboratory Medicine Angélica Granger P.A.-C. [address] [place] [phone] 06/05/2022 Appointment Laboratory Medicine Angélica Granger P.A.-C. [address] [place] [phone] 06/19/2022 Appointment Laboratory Medicine Angélica Granger P.A.-C. [address] [place] [phone] 07/03/2022 Appointment Laboratory Medicine Angélica Granger P.A.-C. [address] [place] [phone] 07/17/2022 Appointment Laboratory Medicine Angélica Granger P.A.-C. [address] [place] [phone] 07/31/2022 Appointment Laboratory Medicine Angélica Granger P.A.-C. [address] [place] [phone] 08/14/2022 Appointment Laboratory Medicine Angélica Granger P.A.-C. [address] [place] [phone] 08/28/2022 Appointment Laboratory Medicine Angélica Granger P.A.-C. [address] [place] [phone] documented as of this encounter Visit Diagnoses Diagnosis Transplant Liver (HCC) - Primary documented in this encounter Additional Health Concerns Infection Onset Date Last Indicated Resolved Time COVID19 Pending 12/13/2019 12/13/2019 12/14/2019 11:03 AM CDT Assessment Noted Time PHQ-9 Depression Total Score: 3 11/22/2019 7:34 AM CDT documented as of this encounter Care Teams Mid Level Provider Relationship Specialty Start Date End Date Elsewhere, Pcp PCP - General Family Medicine 07/29/17 documented as of this encounter
--- OUTSIDE RECORDS SUMMARY | 2022-04-13 12:27 | XMS_ITS | Encounter Summary ---
:1955 Author Organization [facility] Address [address] [place] [address] Care Team Providers Name Role Phone Elsewhere, Pcp Primary Care Provider Unavailable Reason for Referral Outpatient (Routine) - Closed Specialty Diagnoses / Procedures Referred By Contact Refer red To Contact Diagnoses Bronchiectasis With Acute Exacerbation (HCC) Leonid Simon M.D. [facility] Procedures Bronchoscopy (Adult): [address] [place] [phone] Referral ID Status Reason Start Date Expiration Date Visits Requ ested Visits Authorized [id number] Closed 12/07/2019 12/06/2020 1 1 Reason for Visit Outpatient (Routine) - Closed Specialty Diagnoses / Procedures Referred By Contact Refer red To Contact Diagnoses Bronchiectasis With Acute Exacerbation (HCC) Leonid Simon M.D. [facility] Procedures Bronchoscopy (Adult): [address] [place] [phone] Referral ID Status Reason Start Date Expiration Date Visits Requ ested Visits Authorized [id number] Closed 12/07/2019 12/06/2020 1 1 Encounter Details Date Type Department Care Team Description 12/15/2019 Hospital Encounter Division of [facility], Cherrie Castro With Pulmonary Medicine Sada Acute Exacerbation in [place], [address] [facility] ([facility]) [place], [place] 200 [facility] [address] [place], [place] [phone] (Work) [phone] Social History Tobacco Use Types Packs/Day Years [...] Date Recorded Male 05/16/2020 4:27 PM [employer] LOAD[employer] documented as of this encounter Last Filed Vital Signs Vital Sign Reading Time Taken Comments Blood Pressure 103/68 12/15/2019 11:12 AM CDT standing / Pulse 45 12/15/2019 11:03 AM CDT Temperature 36.5 ??C (97.7 ??F) 12/15/2019 9:30 AM CDT Respiratory Rate 19 12/15/2019 11:03 AM CDT Oxygen Saturation 97% 12/15/2019 11:03 AM CDT Inhaled Oxygen Concentration - - [...] Therapy Assisted Not Anticoagulant tacrolimus (PROGRAF) 0.5 Take 2 capsules (1 360 capsule 3 07/20/2020 mg capsuleIndications: mg total) by mouth Transplant Liver (HCC), 2 (two) times a Medication Therapy Long day. Term Not Anticoagulant torsemide (DEMADEX) 10 TAKE 3 TABLETS BY 270 tablet 1 201812/21/2019 mg tablet MOUTH DAILY. RESTARTED ON 03/26/17. MAINTNANCE. traZODone (DESYREL) 100 Take 1 tablet by 0 201610/12/2020 mg tablet mouth at bedtime as needed for sleep. Maintenance documented as of this encounter OR Notes Op Note - Miguel Sanz M.D. - 12/15/2019 10:11 AM CDT FULL OP NOTE Flexible fiberoptic bronchoscopy with BAL left lower lobe Miguel Sanz MD Anesthesia Type moderate sedation Pre-operative Diagnosis Chronic cough, pulmonary infiltrates Status post liver transplantation Post-operative Diagnosis Chronic cough, pulmonary infiltrates Status post liver transplantation Findings As expected. Complications None Description of Procedure After patient identification, procedure pause, and adequate topical an intravenous anesthesia patient was intubated with a cuffed wire spiral endotracheal tube. We proceeded to the left lower lobe performed a BAL and sent this for [facility] protocol. Inspection of the tracheobronchial tree revealed bilateral scattered mucopurulent secretions. The patient had persistent coughing during the procedure despitetopical lidocaine. He otherwise tolerated the procedure well. Specimens ID Type Source Tests Collected by Time A : BAL Left Lower Lobe Lavage-ICH Bronchoalveolar Lavage-ICH FUNGAL CULTURE, ROUTINE, GRAM STAIN, ACID FAST SMEAR FOR MYCOBACTERIUM, LEGIONELLA CULTURE, FUNGAL SMEAR, MYCOBACTERIAL CULTURE, V, ASPERGILLUS AG, BAL, LEGIONELLA PCR, NOCARDIA STAIN, BACTERIAL CULTURE, AEROBIC + SUSC, RESP, INFLUENZA A/B AND RSV, PCR, MISC, PNEUMOCYSTIS PCR, CELL COUNT AND DIFFERENTIAL, BROCHOALVEOLAR LAVAGE, ADENOVIRUS PCR, CYTOLOGY NON-SPRINKLER INSPECTOR Miguel Sanz M.D. 12/15/2019 0956 Drains None Estimated Blood Loss None Implants None Miguel Sanz M.D. documented in this encounter Plan of Treatment Upcoming Encounters Date Type Specialty Care Team Description 04/24/2022 Appointment Laboratory Medicine Angélica Granger P.A.-C. [address] [place] [phone] 04/25/2022 Office Visit Otorhinolaryngology Dex Matta APRN, C.N.P., M.S.N. [address] [place] [phone] 05/08/2022 Appointment Laboratory Medicine Angélica Granger P.A.-C. [address] [place] [phone] 05/08/2022 Clinical Admitting/Central Communication Scheduling 05/10/2022 Appointment Radiology Jeremie Rose M.D. [address] [place] [phone] 05/10/2022 Comprehensive Visit Orthopedic Surgery Warner Graves M.D. [address] [place] [phone] 05/22/2022 Appointment Laboratory Medicine Angélica Granger P.A.-C. [address] [place] [phone] 06/05/2022 Appointment Laboratory Medicine Angélica Granger P.A.-C. [address] [place] [phone] 06/19/2022 Appointment Laboratory Medicine Angélica Granger P.A.-C. [address] [place] [phone] 07/03/2022 Appointment Laboratory Medicine Angélica Granger P.A.-C. [address] [place] [phone] 07/17/2022 Appointment Laboratory Medicine Angélica Granger P.A.-C. [address] [place] [phone] 07/31/2022 Appointment Laboratory Medicine Angélica Granger P.A.-C. [address] [place] [phone] 08/14/2022 Appointment Laboratory Medicine Angélica Granger P.A.-C. [address] [place] [phone] 08/28/2022 Appointment Laboratory Medicine EmilieAngélica wilcox Edmundo Stern [address] [place] [phone] Scheduled Orders Name Type Priority Associated Diagnoses Order S chedule Glucose, POCT Point of Care Routine Routine lab c ollection Testing-Docked (next collect ion) for 1 Device Occurrences sta rting 12/15/2019 unti l 12/15/2019 documented as of this encounter Procedures Procedure Name Priority Date/Time Associated Diagnosis Comme nts BRONCHOSCOPY (ADULT) Routine 12/15/2019 10:24 Bronchiectasis W ith AM CDT Acute Exacerbation (HCC) HC REF SUSCEPT Routine 12/15/2019 9:56 Results fo r this MACROBROTH EA DRUG AM CDT procedure are in the results section. HC REF SUSCEPT Routine 12/15/2019 9:56 Results fo r this MACROBROTH EA DRUG AM CDT procedure are in the results section. VORICONAZOLE (VORI) Routine 12/15/2019 9:56 Resul ts for this AM CDT procedure are i n the results section. POSACONAZOLE (POS) - Routine 12/15/2019 9:56 Resu lts for this SENT OUT LAB AM CDT procedure are i n the results section. CYTOLOGY NON-SPRINKLER INSPECTOR Routine 12/15/2019 9:56 Bronchiectasis With R esults for this AM CDT Acute Exacerbation procedure are in ([facility]) the results section. ADENOVIRUS PCR Routine 12/15/2019 9:56 Bronchiectasis With Res ults for this AM CDT Acute Exacerbation procedure are in ([facility]) the results section. CELL COUNT AND Routine 12/15/2019 9:56 Bronchiectasis With Res ults for this DIFFERENTIAL, AM CDT Acute Exacerbation procedur e are in BROCHOALVEOLAR LAVAGE ([facility]) the re sults section. PNEUMOCYSTIS PCR Routine 12/15/2019 9:56 Bronchiectasis With R esults for this AM CDT Acute Exacerbation procedure are in ([facility]) the results section. INFLUENZA A/B AND RSV, Routine 12/15/2019 9:56 Bronchiectasis With Results for this PCR, MISC AM CDT Acute Exacerbation procedure are in ([facility]) the results section. BACTERIAL CULTURE, Routine 12/15/2019 9:56 Bronchiectasis With Results for this AEROBIC + SUSC, RESP AM CDT Acute Exacerbation p rocedure are in ([facility]) the results section. NOCARDIA STAIN Routine 12/15/2019 9:56 Bronchiectasis With Res ults for this AM CDT Acute Exacerbation procedure are in ([facility]) the results section. LEGIONELLA PCR Routine 12/15/2019 9:56 Bronchiectasis With Res ults for this AM CDT Acute Exacerbation procedure are in ([facility]) the results section. ASPERGILLUS AG, BAL Routine 12/15/2019 9:56 Bronchiectasis Wit h Results for this AM CDT Acute Exacerbation procedure are in ([facility]) the results section. MYCOBACTERIAL CULTURE, Routine 12/15/2019 9:56 Bronchiectasis With Results for this V AM CDT Acute Exacerbation procedure are in ([facility]) the results section. FUNGAL SMEAR Routine 12/15/2019 9:56 Bronchiectasis With Resul ts for this AM CDT Acute Exacerbation procedure are in ([facility]) the results section. LEGIONELLA CULTURE Routine 12/15/2019 9:56 Bronchiectasis With Results for this AM CDT Acute Exacerbation procedure are in ([facility]) the results section. ACID FAST SMEAR FOR Routine 12/15/2019 9:56 Bronchiectasis Wit h Results for this MYCOBACTERIUM AM CDT Acute Exacerbation procedur e are in ([facility]) the results section. GRAM STAIN Routine 12/15/2019 9:56 Bronchiectasis With Resul ts for this AM CDT Acute Exacerbation procedure are in ([facility]) the results section. FUNGAL CULTURE, Routine 12/15/2019 9:56 Bronchiectasis With Re sults for this ROUTINE AM CDT Acute Exacerbation procedure are in ([facility]) the results section. documented in this encounter Results Bronchoscopy (Adult): (12/15/2019 10:24 AM CDT) Leonid Simon M.D. PROCEDURE/MINOR SURGICAL ORD ERABLES Performing Organization Address City/State/ZIP Code Phon e Number [facility] Referral Test 1 (12/15/2019 9:56 AM CDT) P athologist Signature Test Name CASPOFUNGIN 12/15/2019 [facility] 10:58 AM CDT Result See Below 12/29/2019 [facility] 3:21 PM CDT Comment: Antifungal Susceptibility Testing Source: Bronchoalveolar lavage-ICH Species ID Provided: Penicillium sp. Result Name ?Result ?Flag ? Units ? Caspofungin (ALESSANDRA) ? 0.5 ? mcg/mL ? Interpretation ? No Established Breakpoints Test Performed By: [facility] [employer] [facility] [address]AmericanflatSanta [facility] Center Department of Pathology Fungus Lab [place], [place] ??[phone] Specimen Anatomical Collection Method Collection Time Receive d Time (Source) Location / / Volume Laterality Varies 12/15/2019 9:56 AM 0 CDT 10:58 AM CDT Leonid Simon M.D. LAB MISC ORDERABLES Performing Organization Address City/State/ZIP Code Phon e Number MISC REFERRAL LAB MISC Misc [facility] Ant Test (12/15/2019 9:56 AM CDT) P athologist Signature Test Name ITRACONAZOLE 12/15/2019 [facility] 10:58 AM CDT Result See Below 12/29/2019 [facility] 3:21 PM CDT Comment: Antifungal Susceptibility Testing Source: Bronchoalveolar lavage-ICH Species ID Provided: Penicillium sp. Result Name ?Result ?Flag ? Units ? Itraconazole (ITRA) ? 0.25 ?mcg/mL ? Interpretation ? No Established Breakpoints Specimen Anatomical Collection Method Collection Time Receive d Time (Source) Location / / Volume Laterality Varies 12/15/2019 9:56 AM 0 CDT 10:58 AM CDT Leonid Simon M.D. LAB MISC ORDERABLES Performing Organization Address City/[facility] Code Phon e Number [address] [phone] [place] Department [place] [address] Dept of Path-Fungus Lab Posaconazole - Sent Out Lab (12/15/2019 9:56 AM CDT) Component Value Ref Test Analysis Performed Pathologis t Range Method Time At Signature Source Lavage-ICH, 12/29/2019 [facility] Bronchoalveolar 3:21 PM Lavage-ICH CDT Received as PENICILLIUM SP. 12/29/2019 [facility] (Organism) 3:21 PM CDT Result 0.125 ug/mL 12/29/2019 [facility] 3:21 PM CDT Interpretation No Established 12/29/2019 [facility] Breakpoints 3:21 PM CDT Specimen Anatomical Collection Method Collection Time Receive d Time (Source) Location / / Volume Laterality Varies 12/15/2019 9:56 AM 0 CDT 10:58 AM CDT Leonid Simon M.D. LAB MICROBIOLOGY - GENERAL O RDERABLES Performing Organization Address City/[facility] Code Phon e Number [address] [phone] [place] Department Of [place] [address] Dept of Path-Fungus Lab Voriconazole - Sent Out Lab (12/15/2019 9:56 AM CDT) Component Value Ref Test Analysis Performed Pathologis t Range Method Time At Signature Source Lavage-ICH, 12/29/2019 [facility] Bronchoalveolar 3:21 PM Lavage-ICH CDT Received as PENICILLIUM SP. 12/29/2019 [facility] (Organism) 3:21 PM CDT Result 1 ug/mL 12/29/2019 [facility] 3:21 PM CDT Interpretation No Established 12/29/2019 [facility] Breakpoints 3:21 PM CDT Specimen Anatomical Collection Method Collection Time Receive d Time (Source) Location / / Volume Laterality Varies 12/15/2019 9:56 AM 0 CDT 10:58 AM CDT Leonid Simon M.D. LAB MICROBIOLOGY - GENERAL O RDERABLES Performing Organization Address City/State/ZIP Code Phon e Number [facility] [address] [place], [place] [phone] [place] Department Of Pathology [place] [address] C[facility] [place] [address] [facility] Dept of Path-Fungus Lab Cytology Non-SPRINKLER INSPECTOR (12/15/2019 9:56 AM CDT) Component Value Ref Test Analysis Performed At Patholo gist Range Method Time Signature 12/16/2019 DTL 2:41 PM CDT Participated in Priscilla 12/16/2019 DTL the Interpretation Dayanna, 2:41 PM CDT Beatrice-Path ology Resident Report Leonid Huynh M.D. [phone] 12/16/2019 DTL electronically I verify that I have examined all relevant slides/ma terials 2:41 PM CDT signed by for the specimen(s) and rendered or confirmed the diagnosis. Gross Description Received 12/16/2019 DTL clear fluid 2:41 PM CDT in CytoLyt container. Source F. 12/16/2019 DTL Bronchoalveol 2:41 PM CDT ar, lavage Interpretation F. Bronchoalveolar, lavage (ThinPrep): Negative for 12/16/2019 DTL malignancy. 2:41 PM CDT Acute inflammation. Specimen (Source) Anatomical Collection Method Collection Time Re ceived Time Location / / Volume Laterality Lavage-ICH 12/15/2019 9:56 AM (Bronchoalveolar CDT Lavage-ICH) Narrative This result has an attachment that is no t available. Leonid Simon M.D. LAB SURG PATH ORDERABLES Performing Organization Address City/State/ZIP Code Phon e Number [facility] - [address] [place], [place] [address] [facility] [place] [address] Laboratories-[facility] [address] Adenovirus PCR (12/15/2019 9:56 AM CDT) Component Value Ref Range Test Analysis Performed Pathologis t Method Time At Signature Specimen Lavage-ICH, 12/16/2019 DTL Source Bronchoalveolar 1:29 PM CDT Lavage-ICH Adenovirus Negative Negative 12/16/2019 DTL PCR 1:29 PM CDT Comment: ----ADDITIONAL INFORMATION---- This test was developed and its performa nce characteristics determined by [facility] in a manner consistent with CLIA requirements. This test has not been cleared or approved by the U.S. Mer d and Drug Administration. Specimen (Source) Anatomical Collection Method Collection Time Re ceived Time Location / / Volume Laterality Lavage-ICH 12/15/2019 9:56 AM (Bronchoalveolar CDT Lavage-ICH) Leonid Simon M.D. LAB MICROBIOLOGY - GENERAL O RDERAKAJAL Performing Organization Address City/State/ZIP Code Phon e Number [facility] - [address] [place], [place] [address] [facility] [place] [address] [facility] [address] [facility] Cell Count and Differential, BAL (12/15/2019 9:56 AM CDT) P athologist Signature Fluid Type BAL DEFAULT 12/15/2019 [facility] 1:06 PM CDT Gross Cloudy 12/15/2019 [facility] Appearance 1:06 PM CDT Total Nucleated 81.1 x10(6) 12/15/2019 [facility] Cells 1:06 PM CDT Comment: ----REFERENCE VALUE---- The reference range and other method per formance specifications have not been established for this body fluid. The test result must be integrate d into the clinical context for interpretation. ----ADDITIONAL INFORMATION---- This test has been modified from the man ufacturer's instructions. Its performance characteri stics were determined by [facility] in a manner co nsistent with CLIA requirements. This test has not bee n cleared or approved by the U.S. Food and Drug Admin istration. Volume Recovered 36 mL 12/15/2019 1:06 PM CDT [facility] Alveolar Macrophage 13 % 12/15/2019 1:06 PM C DT [facility] Comment: ----REFERENCE VALUE---- The reference range and other method per formance specifications have not been established for this body fluid. The test result must be integrate d into the clinical context for interpretation. Neutrophils 86 % 12/15/2019 1:06 PM CDT [facility] Comment: ----REFERENCE VALUE---- The reference range and other method per formance specifications have not been established for this body fluid. The test result must be integrate d into the clinical context for interpretation. Other Cells 1 % 12/15/2019 1:06 PM CDT [facility] Comment: ----REFERENCE VALUE---- The reference range and other method per formance specifications have not been established for this body fluid. The test result must be integrate d into the clinical context for interpretation. Comment Others are lining cells. 12/15/2019 1:06 PM CDT [facility] Reviewed by: Tereza 12/15/2019 1:06 PM CDT [facility] Specimen (Source) Anatomical Collection Method Collection Time Re ceived Time Location / / Volume Laterality Lavage-ICH 12/15/2019 9:56 AM (Bronchoalveolar CDT Lavage-ICH) Leonid Simon M.D. LAB BODY FLUIDS AND STOOLS Alethea GRAHAM Performing Organization Address City/[facility] Code Phon e Number [facility] - 200 [place], [place] [address] [place] [address] Pneumocystis PCR (12/15/2019 9:56 AM CDT) Component Value Ref Range Test Analysis Performed Pathologis t Method Time At Signature Specimen Lavage-ICH, 12/16/2019 DTL Source Bronchoalveolar 7:41 AM Lavage-ICH CDT Pneumocystis Negative Not 12/16/2019 DTL PCR Applicable 7:41 AM CDT Comment: ----ADDITIONAL INFORMATION---- This test was developed and its performa nce characteristics determined by [facility] in a manner consistent with CLIA requirements. This test has not been cleared or approved by the U.S. Mer d and Drug Administration. Specimen (Source) Anatomical Collection Method Collection Time Re ceived Time Location / / Volume Laterality Lavage-ICH 12/15/2019 9:56 AM (Bronchoalveolar CDT Lavage-ICH) Leonid Simon M.D. LAB MICROBIOLOGY - GENERAL O GLADYS Performing Organization Address City/[facility]/ZIP Code Phon e Number [facility] - [address] [place], [place] [address] [facility] [place] [address] Laboratories-[address] Influenza A/B And RSV, PCR, Misc (12/15/2019 9:56 AM CDT) Component Value Ref Range Test Analysis Performed Pathologis t Method Time At Signature Specimen Lavage-ICH, 12/16/2019 DTL Source Bronchoalveolar 2:25 AM Lavage-ICH CDT Influenza A, Negative Negative 12/16/2019 DTL PCR 2:25 AM CDT Influenza B, Negative Negative 12/16/2019 DTL PCR 2:25 AM CDT Respiratory Negative Negative 12/16/2019 DTL Syncytial 2:25 AM Virus, PCR CDT Comment: ----ADDITIONAL INFORMATION---- This test has been modified from the man ufacturer's instructions. Its performance characteristics were determi kaye by [facility] in a manner consistent with CLIA requirements. This test has not been cleared or approved by the U.S. Food and Drug Administration . Specimen (Source) Anatomical Collection Method Collection Time Re ceived Time Location / / Volume Laterality Lavage-ICH 12/15/2019 9:56 AM (Bronchoalveolar CDT Lavage-ICH) Leonid Simon M.D. LAB MICROBIOLOGY - GENERAL O RDERAKAJAL Performing Organization Address City/[facility] Code Phon e Number [facility] - [address] Bacterial Culture, Aerobic + Susc, Resp (12/15/2019 9:56 AM CDT) Analysis Performed At Patho logist Time Signature Bacterial Usual 12/17/2019 DTL Culture, alfreda 10:01 AM CDT Aerobic, Resp Specimen (Source) Anatomical Collection Method Collection Time Re ceived Time Location / / Volume Laterality Lavage-ICH 12/15/2019 9:56 AM (Bronchoalveolar CDT Lavage-ICH) Leonid Simon M.D. LAB MICROBIOLOGY - GENERAL O RDERABLES Performing Organization Address City/[facility] Code Phon e Number [facility] - [address] [place] [address] [place] [address] Nocardia Stain (12/15/2019 9:56 AM CDT) Analysis Performed At Patho logist Time Signature Nocardia Stain Negative. 12/15/2019 DTL 12:38 PM CDT Specimen (Source) Anatomical Collection Method Collection Time Re ceived Time Location / / Volume Laterality Lavage-ICH 12/15/2019 9:56 AM (Bronchoalveolar CDT Lavage-ICH) Leonid Simon M.D. LAB MICROBIOLOGY - GENERAL O GLADYS Performing Organization Address City/[facility] Code Phon e Number [facility] - 200 [place], [place] [address] [place] [address] [facility] 200 [facility] Legionella PCR (12/15/2019 9:56 AM CDT) Component Value Ref Range Test Analysis Performed Pathologis t Method Time At Signature Specimen Lavage-ICH, 12/16/2019 DTL Source Bronchoalveolar 12:44 AM Lavage-ICH CDT Legionella Negative Not 12/16/2019 DTL PCR, Result Applicable 12:44 AM CDT Comment: ----ADDITIONAL INFORMATION---- This test was developed and its performa nce characteristics determined by [facility] in a manner consistent with CLIA requirements. This test has not been cleared or approved by the U.S. Mer d and Drug Administration. Specimen (Source) Anatomical Collection Method Collection Time Re ceived Time Location / / Volume Laterality Lavage-ICH 12/15/2019 9:56 AM (Bronchoalveolar CDT Lavage-ICH) Leonid Simon M.D. LAB MICROBIOLOGY - GENERAL Alethea GRAHAM Performing Organization Address City/[facility] Code Phon e Number [facility] - 200 [place], [place] [address] [place] [address] Laboratories-[address] Aspergillus Antigen, Bronchoalveolar Lavage (12/15/2019 9:56 AM CDT) P athologist Signature Aspergillus Ag, <0.500 <0.5 index 12/15/2019 [facility] BAL 7:58 PM CDT Comment: ----ADDITIONAL INFORMATION---- This is a qualitative test and the resul onel index value is not indicative of disease severity. ??Serial testing is re commended for patients at high risk for invasive aspergillosis. This assay was performed using the FDA-c leared [employer] Platelia Aspergillus Galactomannan EIA. Specimen (Source) Anatomical Collection Method Collection Time Re ceived Time Location / / Volume Laterality Lavage-ICH 12/15/2019 9:56 AM (Bronchoalveolar CDT Lavage-ICH) Leonid Simon M.D. LAB MICROBIOLOGY - GENERAL O RDERAKAJAL Performing Organization Address City/State/ZIP Code Phon e Number [facility] [address] [place], [place] [address] [facility] [place] [address] Laboratory Medicine and Pathology [address] [place] Mycobacterial Culture (12/15/2019 9:56 AM CDT) Patholo gist Method Time Signature Mycobacterial No growth 01/26/2020 DTL Culture after 42 1:01 PM CDT days of incubation . Specimen (Source) Anatomical Collection Method Collection Time Re ceived Time Location / / Volume Laterality Lavage-ICH 12/15/2019 9:56 AM (Bronchoalveolar CDT Lavage-ICH) Leonid Simon M.D. LAB MICROBIOLOGY - GENERAL O RDERAKAJAL Performing Organization Address City/[facility]/ZIP Code Phon e Number [facility] - [address] [place], [place] [address] [facility] [place] [address] [facility] [address] Fungal Smear (12/15/2019 9:56 AM CDT) P athologist Signature Fungal Smear Negative. 12/15/2019 DTL 12:27 PM CDT Specimen (Source) Anatomical Collection Method Collection Time Re ceived Time Location / / Volume Laterality Lavage-ICH 12/15/2019 9:56 AM (Bronchoalveolar CDT Lavage-ICH) Leonid Simon M.D. LAB MICROBIOLOGY - GENERAL O RDERAKAJAL Performing Organization Address City/[facility]/ZIP Code Phon e Number [facility] - [address] [place], [place] [address] [facility] [place] [address] [facility] [address] Legionella Culture (12/15/2019 9:56 AM CDT) Patholo gist Method Time Signature Legionella No growth 12/22/2019 DTL Culture after 7 9:38 AM CDT days of incubation. Specimen (Source) Anatomical Collection Method Collection Time Re ceived Time Location / / Volume Laterality Lavage-ICH 12/15/2019 9:56 AM (Bronchoalveolar CDT Lavage-ICH) Leonid Simon M.D. LAB MICROBIOLOGY - GENERAL O RDERABLES Performing Organization Address City/State/ZIP Code Phon e Number [facility] - [address] [place], [place] [address] [place] [address] [facility] 200 [facility] Acid Fast Smear For Mycobacterium (12/15/2019 9:56 AM CDT) Patholo gist Method Time Signature Acid Fast Smear Negative. 12/15/2019 DTL For Mycobacterium 12:27 PM CDT Specimen (Source) Anatomical Collection Method Collection Time Re ceived Time Location / / Volume Laterality Lavage-ICH 12/15/2019 9:56 AM (Bronchoalveolar CDT [facility]-ICH) Leonid Simon M.D. LAB MICROBIOLOGY - GENERAL O RDERABLES Performing Organization Address City/State/ZIP Code Phon e Number [facility] - [address] [place], [place] [address] [place] [address] Gram Stain (12/15/2019 9:56 AM CDT) [facility] Method Time Signature Gram Stain No organisms seen. 12/15/2019 DTL White blood cells present. 11:58 AM CDT Specimen (Source) Anatomical Collection Method Collection Time Re ceived Time Location / / Volume Laterality Lavage-ICH 12/15/2019 9:56 AM (Bronchoalveolar CDT [facility]-ICH) Leonid Simon M.D. LAB MICROBIOLOGY - GENERAL O RDERABLES Performing Organization Address City/State/ZIP Code Phon e Number [facility] - [address] [place], [place] [address] [place] [address] (ABNORMAL) Fungal Culture, Routine (12/15/2019 9:56 AM CDT) Patholo gist Method Time Signature Fungal Mixed Fungal 01/17/2020 DTL Culture, Alfreda (A) 3:26 PM CDT Routine Fungal PENICILLIUM sp 01/17/2020 DTL Culture, Many 3:26 PM CDT Routine (A) Comment: Semi-Urgent Result. Susceptibility testing is not routinely recommended for this organism. Clinical correlation requ ired. Isolate forwarded to [facility] for susceptibility testing. In Epic, see res ults in Chart Review select Labs tab, click on Doc ument Viewer to open OnBase Patient Window, select La bs tab and click to open Lab - Send Out Lab Results. Fungal Culture, Routine DEMATIACEOUS FUNGUS 2019 3:26 PM CDT DTL Few (A) Comment: Not further identified. Semi-Urgent This is a semi-urgent result [facility] - ([facility] Specimen (Source) Anatomical Collection Method Collection Time Re ceived Time Location / / Volume Laterality Lavage-ICH 12/15/2019 9:56 AM (Bronchoalveolar CDT Lavage-ICH) Leonid Simon M.D. LAB MICROBIOLOGY - GENERAL O RDERABLES Performing Organization Address City/State/ZIP Code Phon e Number [facility] - [address] [place], [place] [address] [facility] [place] [address] [facility] [address] documented in this encounter Visit Diagnoses Diagnosis Bronchiectasis With Acute Exacerbation ( HCC) documented in this encounter Administered Medications Inactive Administered Medications - up to 3 most recent administrations Medication Order MAR Action Action Date Dose Rate Site benzocaine 20 % mouth spray Given 12/15/2019 10:08 AM CDT 4 spra ys (HURRICAINE/TOPEX) mouth/throat, Code/trauma/sedation medication, Starting on Fri12/15/19 at 1008 fentaNYL injection (SUBLIMAZE) Given 12/15/2019 10:08 AM CDT 50 mcg intravenous, Code/trauma/sedation medication, Starting on Fri12/15/19 at 1008 fentaNYL injection (SUBLIMAZE) Given 12/15/2019 10:11 AM CDT 25 mcg intravenous, Code/trauma/sedation medication, Starting on Fri12/15/19 at 1011 fentaNYL injection (SUBLIMAZE) Given 12/15/2019 10:14 AM CDT 25 mcg intravenous, Code/trauma/sedation medication, Starting on Fri12/15/19 at 1014 lidocaine 10 mg/mL (1 %) injection Given 12/15/2019 10:20 AM CDT 13 mL (XYLOCAINE) topical, Code/trauma/sedation medication, Starting on Fri12/15/19 at 1020 midazolam (PF) injection (VERSED) Given 12/15/2019 10:08 AM CDT 2 mg Code/trauma/sedation medication, Starting on Fri12/15/19 at 1008 midazolam (PF) injection (VERSED) Given 12/15/2019 10:10 AM CDT 1 mg Code/trauma/sedation medication, Starting on Fri12/15/19 at 1010 midazolam (PF) injection (VERSED) Given 12/15/2019 10:14 AM CDT 1 mg Code/trauma/sedation medication, Starting on Fri12/15/19 at 1014 NaCl 0.9% infusion New Bag 12/15/2019 9:33 AM CDT 20 mL/hr 20 mL/hr 20 mL/hr, intravenous, Continuous, Starting on Fri12/15/19 at 0915, Pre-Op documented in this encounter Additional Health Concerns Assessment Noted Time PHQ-9 Depression Total Score: 3 11/22/2019 7:34 AM CDT documented as of this encounter Care Teams Braiding Machine Tender Relationship Specialty Start Date End Date Elsewhere, Pcp PCP - General Family Medicine 07/29/17 documented as of this encounter
--- OUTSIDE RECORDS SUMMARY | 2022-04-13 12:27 | XMS_ITS | Encounter Summary ---
:1955 Author Organization [facility] Address [address] [place] [address] Care Team Providers Name Role Phone Elsewhere, Pcp Primary Care Provider Unavailable Encounter Details Date Type Department Care Team Description 12/01/2019 Orders Only Curt Rene [facility] Michele Granger for Transplantation and P.A.-C. 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 [address] [place] [phone] 04/25/2022 Office Visit Otorhinolaryngology Dex Matta APRN, C.N.P., M.S.N. [address] [place] [phone] 05/08/2022 Appointment Laboratory Medicine Angélica Granger P.A.-CDemetrius [address] [place] [phone] 05/08/2022 Clinical Admitting/Central Communication Scheduling 05/10/2022 Appointment Radiology Jeremie Rose M.D. [address] [place] [phone] 05/10/2022 Comprehensive Visit Orthopedic Surgery Warner Graves M.D. [address] [place] [phone] 05/22/2022 Appointment Laboratory Medicine Angélica Granger P.A.-C. [address] [place] [phone] 06/05/2022 Appointment Laboratory Medicine Angélica Granger P.A.-C. [address] [place] [phone] 06/19/2022 Appointment Laboratory Medicine Angélica Granger P.A.-C. [address] [place] [phone] 07/03/2022 Appointment Laboratory Medicine Angélica Granger P.A.-C. [address] [place] [phone] 07/17/2022 Appointment Laboratory Medicine Angélica Granger P.A.-C. [address] [place] [phone] 07/31/2022 Appointment Laboratory Medicine Angélica Granger P.A.-C. [address] [place] [phone] 08/14/2022 Appointment Laboratory Angélica Royal P.A.-C. [address] [place] [phone] 08/28/2022 Appointment Laboratory Angélica Royal P.A.-C. [address] [place] [phone] documented as of this encounter Visit Diagnoses Not on filedocumented in this encounter Additional Health Concerns Assessment Noted Time PHQ-9 Depression Total Score: 3 11/22/2019 7:34 AM CDT documented as of this encounter Care Teams Geophysical Prospecting Surveyor Relationship Specialty Start Date End Date Elsewhere, Pcp PCP - General Family Medicine 07/29/17 documented as of this encounter
--- OUTSIDE RECORDS SUMMARY | 2022-04-13 12:27 | XMS_ITS | Encounter Summary ---
:1955 Author Organization [facility] Address [address] [place] [address] Care Team Providers Name Role Phone Elsewhere, Pcp Primary Care Provider Unavailable Encounter Details Date Type Department Care Team Description 12/06/2019 Clinical Communication Angélica Ching [place] for J, P.A.-C. 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 [address] [place] [phone] 04/25/2022 Office Visit Otorhinolaryngology Dex Matta APRN, C.N.P., M.S.N. [address] [place] [phone] 05/08/2022 Appointment Laboratory Medicine Angélica Granger P.A.-CDemetrius [address] [place] [phone] 05/08/2022 Clinical Admitting/Central Communication Scheduling 05/10/2022 Appointment Radiology Jeremie Rose M.D. [address] [place] [phone] 05/10/2022 Comprehensive Visit Orthopedic Surgery Warner Graves M.D. [address] [place] [phone] 05/22/2022 Appointment Laboratory Medicine Angélica Granger P.A.-C. [address] [place] [phone] 06/05/2022 Appointment Laboratory Medicine Angélica Granger P.A.-C. [address] [place] [phone] 06/19/2022 Appointment Laboratory Medicine Angélica Granger P.A.-C. [address] [place] [phone] 07/03/2022 Appointment Laboratory Medicine Angélica Granger P.A.-C. [address] [place] [phone] 07/17/2022 Appointment Laboratory Medicine Angélica Granger P.A.-C. [address] [place] [phone] 07/31/2022 Appointment Laboratory Medicine Angélica Granger P.A.-C. [address] [place] [phone] 08/14/2022 Appointment Laboratory Medicine Angélica Granger P.A.-C. [address] [place] [phone] 08/28/2022 Appointment Laboratory Medicine Angélica Granger P.A.-C. [address] [place] [phone] documented as of this encounter Results SARS Coronavirus-2, PCR Asymptomatic (12/13/2019 7:47 PM CDT) [facility] Method Time Signature SARS Swab, 12/14/2019 DTL Coronavirus-2 Nasopharynx 11:02 AM Source CDT SARS Undetected Undetected 12/14/2019 DTL Coronavirus-2 11:02 AM , PCR CDT Comment: SARS-CoV-2 RNA absent. This result does not rule out COVID-19 in the patient, as the sensitivity of the test depends o n the timing of the specimen collection and quality of the specimen. Result should be correlated with patient's history and clinical presentat ion. ----ADDITIONAL INFORMATION---- This test was developed and its performa nce characteristics determined by [facility] in a manner co nsistent with CLIA requirements. Independent review by the U.S. Food and Drug Administration is pending. Visit the CDC website: https://www.cdc.gov/coronavirus/ ?? for the most recent guidelines on [place] virus testing. Fact Sheet for Healthcare Providers: (https://www.[employer]/it-mmfil es/ Provider_Fact_Sheet_for_[facility]_COVI D-19.pdf) Fact Sheet for Patients: (https://www.[employer]/it-mmfil es/ Patient_Fact_Sheet_for_COVID-19.pdf) Specimen Anatomical Collection Method Collection Time Receive d Time (Source) Location / / Volume Laterality Varies 12/13/2019 7:47 PM 0 7:47 (Nasopharynx) CDT PM CDT Angélica Granger P.A.-C. LAB MICROBIOLOGY - GENERAL O RDERABLES Performing Organization Address City/State/ZIP Code Phon e Number [facility] - [address] [place] [address] [place] [address] [facility] 200 [facility] SARS Coronavirus 2 IgG Ab, Serum (12/13/2019 3:10 PM CDT) P athologist Signature SARS-CoV-2 IgG Negative Negative 12/14/2019 [facility] Ab 3:17 AM CDT Comment: No IgG antibodies to SARS-CoV-2 detected . ?? Negative results may occur in serum santosh ected too soon following infection, or in immunosuppres sed patients. ?? Follow-up testing with a molecular test is recommended in symptomatic patients. ??This test sofiya uld not be used to exclude active/recent COVID-19. ?? Testing was performed using the EUROIMMUN Slla-ANCP-HeD-2 HARRIET (IgG), which has received Emergency Use Authori zation (EUA) by the U.S. Food and Drug Administration . ?? Fact sheets for this EUA assay can be fo und at the following links: ?? Factsheet for healthcare Providers: ?? https://www.fda.gov/media/970600/downloa d Factsheet for healthcare Patients: ?? https://www.fda.gov/media/941748/downloa d Specimen Anatomical Collection Method Collection Time Receive d Time (Source) Location / / Volume Laterality Blood (Blood, 12/13/2019 3:10 PM 12/13/19 20 8:09 Venous) CDT PM CDT Angélica Granger P.A.-C. LAB MICROBIOLOGY - BLOOD ORD ERABLES Performing Organization Address City/State/[facility] Code Phon e Number [facility] [address] [place] [address] SUPPORT [facility] [place] [address] Laboratory Medicine and Pathology [address] [place] documented in this encounter Visit Diagnoses Diagnosis Encounter For Screening For Other Viral Diseases (COVID-19) - Primary documented in this encounter Additional Health Concerns Assessment Noted Time PHQ-9 Depression Total Score: 3 11/22/2019 7:34 AM CDT documented as of this encounter Care Teams Senior Drupal Developer Relationship Specialty Start Date End Date Elsewhere, Pcp PCP - General Family Medicine 07/29/17 documented as of this encounter
--- OUTSIDE RECORDS SUMMARY | 2022-04-13 12:27 | XMS_ITS | Encounter Summary ---
:1955 Author Organization [facility] Address [address] [place] [address] Care Team Providers Name Role Phone Elsewhere, Pcp Primary Care Provider Unavailable Encounter Details Date Type Department Care Team Description 12/01/2019 Orders Only Curt Rene [facility] Michele Granger for Transplantation and P.A.-C. 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 [address] [place] [phone] 04/25/2022 Office Visit Otorhinolaryngology Dex Matta APRN, C.N.P., M.S.N. [address] [place] [phone] 05/08/2022 Appointment Laboratory Medicine Angélica Granger P.A.-CDemetrius [address] [place] [phone] 05/08/2022 Clinical Admitting/Central Communication Scheduling 05/10/2022 Appointment Radiology Jeremie Rose M.D. [address] [place] [phone] 05/10/2022 Comprehensive Visit Orthopedic Surgery Warner Graves M.D. [address] [place] [phone] 05/22/2022 Appointment Laboratory Medicine Angélica Granger P.A.-C. [address] [place] [phone] 06/05/2022 Appointment Laboratory Medicine Angélica Granger P.A.-C. [address] [place] [phone] 06/19/2022 Appointment Laboratory Medicine Angélica Granger P.A.-C. [address] [place] [phone] 07/03/2022 Appointment Laboratory Medicine Angélica Granger P.A.-C. [address] [place] [phone] 07/17/2022 Appointment Laboratory Medicine Angélica Granger P.A.-C. [address] [place] [phone] 07/31/2022 Appointment Laboratory Medicine Angélica Granger P.A.-C. [address] [place] [phone] 08/14/2022 Appointment Laboratory Angélica Royal P.A.-C. [address] [place] [phone] 08/28/2022 Appointment Laboratory Angélica Royal P.A.-C. [address] [place] [phone] documented as of this encounter Visit Diagnoses Not on filedocumented in this encounter Additional Health Concerns Assessment Noted Time PHQ-9 Depression Total Score: 3 11/22/2019 7:34 AM CDT documented as of this encounter Care Teams Lawn Technician Relationship Specialty Start Date End Date Elsewhere, Pcp PCP - General Family Medicine 07/29/17 documented as of this encounter
--- OUTSIDE RECORDS SUMMARY | 2022-04-13 12:27 | XMS_ITS | Encounter Summary ---
:1955 Author Organization [facility] Address [address] [place] [address] Care Team Providers Name Role Phone Elsewhere, Pcp Primary Care Provider Unavailable Reason for Visit Reason Comments COVID Inquiry Encounter Details Date Type Department Care Team Description 11/26/2019 Clinical Communication Department of BHUMI Chatman Inquiry Dermatology in [place] C.N.P., D.N.P. 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 Do you have a pending COVID test because you had symptoms or exposure to someone with COVID or you have tested positive for COVID in the last 30 days? no 2. In the past 14 days, do you, anyone in the household, or anyone you have had prolonged exposure have any of the following? a. Fever greater than or equal to 37.8 C (100.0 F)? no b. New symptoms (Specifically: headache, cough, shortness of breath, respiratory distress, sore throat, diarrhea, nausea, vomiting, chills and repeated shaking with chills, myalgia's (muscle aches), loss of smell, or change or loss of taste sensation)? no c. Had close contact with a patient with known or possible COVID-19 in the last 14 days? no Route reply to: ANNALISE MAK DESK Scheduling Contact Number: [phone] documented in this encounter Plan of Treatment Upcoming Encounters Date Type Specialty Care Team Description 04/24/2022 Appointment Laboratory Medicine Angélica Granger P.A.-C. [address] [place] [phone] 04/25/2022 Office Visit Otorhinolaryngology Dex Matta APRN, C.N.P., M.S.N. [address] [place] [phone] 05/08/2022 Appointment Laboratory Medicine Angélica Granger P.A.-C. [address] [place] [phone] 05/08/2022 Clinical Admitting/Central Communication Scheduling 05/10/2022 Appointment Radiology Jeremie Rose M.D. [address] [place] [phone] 05/10/2022 Comprehensive Visit Orthopedic Surgery Warner Graves M.D. [address] [place] [phone] 05/22/2022 Appointment Laboratory Medicine Angélica Granger P.A.-C. [address] [place] [phone] 06/05/2022 Appointment Laboratory Medicine Angélica Granger P.A.-C. [address] [place] [phone] 06/19/2022 Appointment Laboratory Medicine Angélica Granger P.A.-C. [address] [place] [phone] 07/03/2022 Appointment Laboratory Medicine Angélica Granger P.A.-C. [address] [place] [phone] 07/17/2022 Appointment Laboratory Medicine Angélica Granger P.A.-C. [address] [place] [phone] 07/31/2022 Appointment Laboratory Medicine Angélica Granger P.A.-C. [address] [place] [phone] 08/14/2022 Appointment Laboratory Medicine Angélica Granger P.A.-C. [address] [place] [phone] 08/28/2022 Appointment Laboratory Medicine Angélica Granger P.A.-C. [address] [place] [phone] documented as of this encounter Visit Diagnoses Not on filedocumented in this encounter Additional Health Concerns Assessment Noted Time PHQ-9 Depression Total Score: 3 11/22/2019 7:34 AM CDT documented as of this encounter Care Teams Store Stock Associate Relationship Specialty Start Date End Date Elsewhere, Pcp PCP - General Family Medicine 07/29/17 documented as of this encounter
--- OUTSIDE RECORDS SUMMARY | 2022-04-13 12:27 | XMS_ITS | Encounter Summary ---
:1955 Author Organization [facility] Address [address] [place] [address] Care Team Providers Name Role Phone Elsewhere, Pcp Primary Care Provider Unavailable Reason for Visit Reason Comments Telephone Fever / Cough Encounter Details Date Type Department Care Team Description 12/27/2019 Clinical Curt Dove, Tele one (Fever / Communication Center for Blanca M, Cough) Transplantation and R.N. Clinical Regeneration [phone] in [facility] (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 Dr. Simon and Angélica were goingto put a plan together. Over the weekend he has started to cough up more dark fleam and low grade fever of 99 - 101 as the highest. Currently his temp is at 99 but has more of a persistent cough. Has 2negative COVID swabs done recently as well. Please call. documented in this encounter Plan of Treatment Upcoming Encounters Date Type Specialty Care Team Description 04/24/2022 Appointment Laboratory Medicine Angélica Granger P.A.-Janette [address] [place] [phone] 04/25/2022 Office Visit Otorhinolaryngology Dex Matta APRN, C.N.P., M.S.N. [address] [place] [phone] 05/08/2022 Appointment Laboratory Medicine Angélica Granger P.A.-C. [address] [place] [phone] 05/08/2022 Clinical Admitting/Central Communication Scheduling 05/10/2022 Appointment Radiology Jeremie Rose M.D. [address] [place] [phone] 05/10/2022 Comprehensive Visit Orthopedic Surgery Warner Graves M.D. [address] [place] [phone] 05/22/2022 Appointment Laboratory Medicine Angélica Granger P.A.-C. [address] [place] [phone] 06/05/2022 Appointment Laboratory Medicine Angélica Granger P.A.-C. [address] [place] [phone] 06/19/2022 Appointment Laboratory Medicine Angélica Granger P.A.-C. [address] [place] [phone] 07/03/2022 Appointment Laboratory Medicine Angélica Granger P.A.-C. [address] [place] [phone] 07/17/2022 Appointment Laboratory Medicine Angélica Granger P.A.-C. [address] [place] [phone] 07/31/2022 Appointment Laboratory Medicine Angélica Granger P.A.-C. [address] [place] [phone] 08/14/2022 Appointment Laboratory Medicine Angélica Granger P.A.-C. [address] [place] [phone] 08/28/2022 Appointment Laboratory Medicine Angélica Granger P.A.-C. [address] [place] [phone] documented as of this encounter Visit Diagnoses Not on filedocumented in this encounter Additional Health Concerns Assessment Noted Time PHQ-9 Depression Total Score: 3 11/22/2019 7:34 AM CDT documented as of this encounter Care Teams Cask Maker Relationship Specialty Start Date End Date Elsewhere, Pcp PCP - General Family Medicine 07/29/17 documented as of this encounter
--- OUTSIDE RECORDS SUMMARY | 2022-04-13 12:27 | XMS_ITS | Encounter Summary ---
:1955 Author Organization [facility] Address [address] [place] [address] Care Team Providers Name Role Phone Elsewhere, Pcp Primary Care Provider Unavailable Encounter Details Date Type Department Care Team Description 12/27/2019 Orders Only Curt R[facility] Michele Granger for Transplantation and P.A.-C. 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 [address] [place] [phone] 04/25/2022 Office Visit Otorhinolaryngology Dex Matta APRN, C.N.P., M.S.N. [address] [place] [phone] 05/08/2022 Appointment Laboratory Medicine Angélica Granger P.A.-CDemetrius [address] [place] [phone] 05/08/2022 Clinical Admitting/Central Communication Scheduling 05/10/2022 Appointment Radiology Jeremie Rose M.D. [address] [place] [phone] 05/10/2022 Comprehensive Visit Orthopedic Surgery Warner Graves M.D. [address] [place] [phone] 05/22/2022 Appointment Laboratory Medicine Angélica Granger P.A.-C. [address] [place] [phone] 06/05/2022 Appointment Laboratory Medicine Angélica Granger P.A.-C. [address] [place] [phone] 06/19/2022 Appointment Laboratory Medicine Angélica Granger P.A.-C. [address] [place] [phone] 07/03/2022 Appointment Laboratory Medicine Angélica Granger P.A.-C. [address] [place] [phone] 07/17/2022 Appointment Laboratory Medicine Angélica Granger P.A.-C. [address] [place] [phone] 07/31/2022 Appointment Laboratory Medicine Angélica Granger P.A.-C. [address] [place] [phone] 08/14/2022 Appointment Laboratory Angélica Royal P.A.-C. [address] [place] [phone] 08/28/2022 Appointment Laboratory Angélica Royal P.A.-C. [address] [place] [phone] documented as of this encounter Visit Diagnoses Not on filedocumented in this encounter Additional Health Concerns Assessment Noted Time PHQ-9 Depression Total Score: 3 11/22/2019 7:34 AM CDT documented as of this encounter Care Teams Microsoft Dynamics Developer Relationship Specialty Start Date End Date Elsewhere, Pcp PCP - General Family Medicine 07/29/17 documented as of this encounter
--- OUTSIDE RECORDS SUMMARY | 2022-04-13 12:27 | XMS_ITS | Encounter Summary ---
:1955 Author Organization [facility] Address [address] [place] [address] Care Team Providers Name Role Phone Elsewhere, Pcp Primary Care Provider Unavailable Reason for Referral MRI/CAT/PET Scan (Routine) - Closed Specialty Diagnoses / Procedures Referred By Contact Refer red To Contact Radiology Diagnoses Transplant Liver (HCC) Angélica Granger P.A.-C. [facility] Procedures CT Chest without IV Contrast [address] [place] [phone] Referral ID Status Reason Start Date Expiration Date Visits Requ ested Visits Authorized [id number] Closed 12/27/2019 12/26/2020 1 1 Reason for Visit MRI/CAT/PET Scan (Routine) - Closed Specialty Diagnoses / Procedures Referred By Contact Refer red To Contact Radiology Diagnoses Transplant Liver (HCC) Angélica Granger P.A.-C. [facility] Procedures CT Chest without IV Contrast [address] [place] [phone] Referral ID Status Reason Start Date Expiration Date Visits Requ ested Visits Authorized [id number] Closed 12/27/2019 12/26/2020 1 1 Encounter Details Date Type Department Care Team Description 12/29/2019 Hospital Encounter Department of Angélica Granger Liver Radiology, [facility] P.A.-C. 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 predniSONE (DELTASONE) 5 Take 1 tablet (5 mg 90 tablet 3 07/20/2020 mg tabletIndications: total) by mouth Transplant Liver ([facility]), daily. Medication Therapy [facility] Not Anticoagulant tacrolimus (PROGRAF) 0.5 Take 2 capsules (1 360 capsule 3 07/20/2020 mg capsuleIndications: mg total) by mouth Transplant Liver ([facility]), 2 (two) times a Medication Therapy Long [...] Laboratory Medicine Angélica Granger P.A.-C. [address] [place] [phone] 04/25/2022 Office Visit Otorhinolaryngology Dex Matta APRN, C.N.P., M.S.N. [address] [place] [phone] 05/08/2022 Appointment Laboratory Medicine Angélica Granger P.A.-C. [address] [place] [phone] 05/08/2022 Clinical Admitting/Central Communication Scheduling 05/10/2022 Appointment Radiology Jeremie Rose M.D. [address] [place] [phone] 05/10/2022 Comprehensive Visit Orthopedic Surgery Warner Graves M.D. [address] [place] [phone] 05/22/2022 Appointment Laboratory Medicine Angélica Granger P.A.-C. [address] [place] [phone] 06/05/2022 Appointment Laboratory Medicine Angélica Granger P.A.-C. [address] [place] [phone] 06/19/2022 Appointment Laboratory Medicine Angélica Granger P.A.-C. [address] [place] [phone] 07/03/2022 Appointment Laboratory Medicine Angélica Granger P.A.-C. [address] [place] [phone] 07/17/2022 Appointment Laboratory Medicine Angélica Granger P.A.-C. [address] [place] [phone] 07/31/2022 Appointment Laboratory Medicine Angélica Granger P.A.-C. [address] [place] [phone] 08/14/2022 Appointment Laboratory Medicine Angélica Granger P.A.-C. [address] [place] [phone] 08/28/2022 Appointment Laboratory Medicine Angélica Granger P.A.-C. [address] [place] [phone] documented as of this encounter Procedures Procedure Name Priority Date/Time Associated Comments Diagnosis CT CHEST WITHOUT RAD - Routine 12/29/2019 10:02 Transplant Liver Re sults for this IV CONTRAST (most inpatients AM CDT (HCC) procedure a re in and all the results outpatients) section. documented in this encounter Results CT Chest without IV Contrast (12/29/2019 10:02 AM CDT) Anatomical Region Laterality Modality Chest, Thoracic RST LOS, Thoracic ARZ N/A Co mputed Tomography, Computed LOS, Thoracic FLA LOS Tomography Specimen (Source) Anatomical Collection Method Collection Time Re ceived Time Location / / Volume Laterality 12/29/2019 10:21 AM CDT Impressions 12/29/2019 10:51 AM CDT New area of dense consolidation posterior left lower lobe in region of previously present tree-in-bud micronodu les. Additional new tree-in-bud micronodules throughout the left lower l obe and a small focus in the anterior right lower lobe. Findings are likely in fectious/inflammatory. Consider aspiration as a possible etiology in the setting of new/increased endobronchial plugging in the posterior left lower lob e. Additional findings not significantly changed including diffuse bronchial thic kening and multifocal endobronchial plugging. Narrative 12/29/2019 10:51 AM CDT EXAM: CT CHEST WITHOUT IV CONTRAST COMPARISON: Chest CT 11/23/2019 FINDINGS: Since 11/23/2019, new area of consolidat ion in the left lung base with surrounding tree-in-bud micronodules. Ad ditional tree-in-bud micronodules scattered throughout the left lower lobe . Endobronchial plugging in the posterior left lower lobe airways has in creased. New tree-in-bud micronodules in the anterior right lower lobe (series 3, image 316). Similar diffuse bronchial wall thickening. Additional areas of end obronchial plugging are similar to the prior study. Small amount of atelectasis in the medial right middle lobe. Tiny calcified granuloma right lower lobe. No pneumothorax or pleural effusion. Pro bable trace layering left pleural effusion. No size significant hilar, mediastinal, or axillary lymphadenopathy. Calcified atherosclerotic plaque in the aorta, pro ximal aortic arch branch vessels, and coronary arteries. No pericardial effusi on. Partially imaged left renal artery stent . Small right renal cyst. Postoperative changes in the right upper quadrant the abdomen adjacent to the IVC compatible with prior liver transplant. Cholecystec shayan. Partially imaged upper abdominal varices. Mild splenomegaly No aggressive osseous lesions. [place] d right anterior rib and right mid to distal clavicle fractures. Procedure Note Maggie Young M.D. - 12/29/2019Format ting of this note might be different from the original. EXAM: CT CHEST WITHOUT IV CONTRAST COMPARISON: Chest CT 11/23/2019 FINDINGS: Since 11/23/2019, new area of consolidat ion in the left lung base with surrounding tree-in-bud micronodules. Ad ditional tree-in-bud micronodules scattered throughout the left lower lobe . Endobronchial plugging in the posterior left lower lobe airways has in creased. New tree-in-bud micronodules in the anterior right lower lobe (series 3, image 316). Similar diffuse bronchial wall thickening. Additional areas of end obronchial plugging are similar to the prior study. Small amount of atelectasis in the medial right middle lobe. Tiny calcified granuloma right lower lobe. No pneumothorax or pleural effusion. Pro bable trace layering left pleural effusion. No size significant hilar, mediastinal, or axillary lymphadenopathy. Calcified atherosclerotic plaque in the aorta, pro ximal aortic arch branch vessels, and coronary arteries. No pericardial effusi on. Partially imaged left renal artery stent . Small right renal cyst. Postoperative changes in the right upper quadrant the abdomen adjacent to the IVC compatible with prior liver transplant. Cholecystec shayan. Partially imaged upper abdominal varices. Mild splenomegaly No aggressive osseous lesions. [place] d right anterior rib and right mid to distal clavicle fractures. IMPRESSION: New area of dense consolidation posterio r left lower lobe in region of previously present tree-in-bud micronodu les. Additional new tree-in-bud micronodules throughout the left lower l obe and a small focus in the anterior right lower lobe. Findings are likely in fectious/inflammatory. Consider aspiration as a possible etiology in the setting of new/increased endobronchial plugging in the posterior left lower lob e. Additional findings not significantly changed including diffuse bronchial thic kening and multifocal endobronchial plugging. Angélica Granger P.A.-C. IMG CT PROCEDURES documented in this encounter Visit Diagnoses Diagnosis Transplant Liver (HCC) documented in this encounter Additional Health Concerns Assessment Noted Time PHQ-9 Depression Total Score: 3 11/22/2019 7:34 AM CDT documented as of this encounter Care Teams Medical Lead Relationship Specialty Start Date End Date Elsewhere, Pcp PCP - General Family Medicine 07/29/17 documented as of this encounter
--- OUTSIDE RECORDS SUMMARY | 2022-04-13 12:27 | XMS_ITS | Encounter Summary ---
:1955 Author Organization [facility] Address [address] [place] [address] Care Team Providers Name Role Phone Elsewhere, Pcp Primary Care Provider Unavailable Reason for Visit Reason Comments Med Refill Encounter Details Date Type Department Care Team Description 12/01/2019 [facility] [place] Tiffanie Blackman M.D. 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 [address] [place] [phone] 04/25/2022 Office Visit Otorhinolaryngology Dex Matta, RAMONA, C.N.P., M.S.N. [address] [place] [phone] 05/08/2022 Appointment Laboratory Medicine Angélica Granger, P.A.-C. [address] [place] [phone] 05/08/2022 Clinical Admitting/Central Communication Scheduling 05/10/2022 Appointment Radiology Jeremie Rose M.D. [address] [place] [phone] 05/10/2022 Comprehensive Visit Orthopedic Surgery Warner Graves M.D. [address] [place] [phone] 05/22/2022 Appointment Laboratory Medicine Angélica Granger P.A.-C. [address] [place] [phone] 06/05/2022 Appointment Laboratory Angélica Royal P.A.-C. [address] [place] [phone] 06/19/2022 Appointment Laboratory Angélica Royal P.A.-C. [address] [place] [phone] 07/03/2022 Appointment Laboratory Angélica Royal P.A.-C. [address] [place] [phone] 07/17/2022 Appointment Laboratory Angélica Royal P.A.-C. [address] [place] [phone] 07/31/2022 Appointment Laboratory Angélica Royal P.A.-C. [address] [place] [phone] 08/14/2022 Appointment Laboratory Angélica Royal P.A.-C. [address] [place] [phone] 08/28/2022 Appointment Laboratory Angélica Royal P.A.-C. [address] [place] [phone] documented as of this encounter Visit Diagnoses Not on filedocumented in this encounter Additional Health Concerns Assessment Noted Time PHQ-9 Depression Total Score: 3 11/22/2019 7:34 AM CDT documented as of this encounter Care Teams Director Enterprise Systems Relationship Specialty Start Date End Date Elsewhere, Pcp PCP - General Family Medicine 07/29/17 documented as of this encounter
--- OUTSIDE RECORDS SUMMARY | 2022-04-13 12:27 | XMS_ITS | Encounter Summary ---
:1955 Author Organization [facility] Address [address] [place] [address] Care Team Providers Name Role Phone Elsewhere, Pcp Primary Care Provider Unavailable Reason for Visit Outpatient (Routine) - Closed Specialty Diagnoses / Procedures Referred By Contact Refer red To Contact Dermatology Diagnoses Squamous Cell Carcinoma In Situ Tres Llamas M.D. [address] [address] Referral ID Status Reason Start Date Expiration Date Visits Requ ested Visits Authorized [id number] Closed 11/26/2019 11/25/2020 1 1 Encounter Details Date Type Department Care Team Description 11/29/2019 Office Visit Department of Kandace Chatman Squamous Cell Dermatology in A, RN IMMUNOLOGY, C.N.P., Carcinoma In Situ [place], [place] D.N.P. 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 Nithin Ring ([phone]) Supervising window covering sales consultant, Dr. Nithin Ring, was immediately available but consultation was not required. HISTORY OF PRESENT ILLNESS Mr. Bruce Singh is a 64 y.o. 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 The patient was seen on November 23, [address] Llamas and Bashir aviles at which time the biopsy was obtained. Allergies Allergen Reactions ??? Cefixime Diarrhea ??? Ciprofloxacin Other (see comments) Tendon pain ??? Citalopram Other (see comments) michell ??? Erythromycin Base Other (see comments) Due to medications ??? Olanzapine Other (see comments) Joint pain ??? Quetiapine Edema Muscle pain and swelling PHYSICAL EXAM General: Awake, alert, in no acute distress, and with appropriate affect. Skin: I have examined the vertex scalp, per patient request. Examination reveals a healing scab at the biopsy site measuring 1 cm with no drainage or inflammation. 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 Benefits and risks including but not limited to infection, bleeding, scar formation, and recurrence were discussed and questions answered. The patient elected to proceed. The anesthesia used was 1% lidocaine with epinephrine 1:200,000. The skin was prepped in a sterile fashion with alcohol. The lesion was curetted with a 3-mm curette in three different directions and electrodesiccation of the base until clinically tumor-free margins were obtained. Postoperative size: 1.1 cm. Estimated blood loss: Minimal. Complications: None. Wound care: Routine. All questions answered. INFORMED CONSENT Discussed the risks, benefits, alternatives, and the necessity of other members of the healthcare team participating in the procedure. All questions answered and consent given. PATIENT EDUCATION Ready to learn. No apparent learning barriers were identified. Learning preferences include listening. Explained diagnosis and treatment plan; patient/guardian of patient expressed understanding of thecontent. documented in this encounter Plan of Treatment Upcoming Encounters Date Type Specialty Care Team Description 04/24/2022 Appointment Laboratory Medicine Angélica Granger P.A.-C. [address] [place] [phone] 04/25/2022 Office Visit Otorhinolaryngology Dex Matta APRN, C.N.PDemetrius, M.S.N. [address] [place] [phone] 05/08/2022 Appointment Laboratory Medicine Angélica Granger P.A.-C. [address] [place] [phone] 05/08/2022 Clinical Admitting/Central Communication Scheduling 05/10/2022 Appointment Radiology Jeremie Rose M.D. [address] [place] [phone] 05/10/2022 Comprehensive Visit Orthopedic Surgery Warner Graves M.D. [address] [place] [phone] 05/22/2022 Appointment Laboratory Medicine Angélica Granger P.A.-C. [address] [place] [phone] 06/05/2022 Appointment Laboratory Medicine Angélica Granger P.A.-C. [address] [place] [phone] 06/19/2022 Appointment Laboratory Medicine Angélica Granger P.A.-C. [address] [place] [phone] 07/03/2022 Appointment Laboratory Medicine Angélica Granger P.A.-C. [address] [place] [phone] 07/17/2022 Appointment Laboratory Medicine Angélica Granger P.A.-C. [address] [place] [phone] 07/31/2022 Appointment Laboratory Medicine Angélica Granger P.A.-C. [address] [place] [phone] 08/14/2022 Appointment Laboratory Medicine Angélica Granger P.A.-C. [address] [place] [phone] 08/28/2022 Appointment Laboratory Medicine Angélica Granger P.A.-C. [address] [place] [phone] documented as of this encounter Visit Diagnoses Diagnosis Squamous Cell Carcinoma In Situ - Primar y documented in this encounter Additional Health Concerns Assessment Noted Time PHQ-9 Depression Total Score: 3 11/22/2019 7:34 AM CDT documented as of this encounter Care Teams Special Client Bus Driver Relationship Specialty Start Date End Date Elsewhere, Pcp PCP - General Family Medicine 07/29/17 documented as of this encounter
--- OUTSIDE RECORDS SUMMARY | 2022-04-13 12:27 | XMS_ITS | Encounter Summary ---
:1955 Author Organization [facility] Address [address] [place] [address] Care Team Providers Name Role Phone Elsewhere, Pcp Primary Care Provider Unavailable Reason for Referral Outpatient (Routine) - Closed Specialty Diagnoses / Procedures Referred By Contact Refer red To Contact Diagnoses Bronchiectasis With Acute Exacerbation (HCC) Leonid Simon M.D. [facility] Procedures Bronchoscopy (Adult): [address] [place] [address] [phone] Referral ID Status Reason Start Date Expiration Date Visits Requ ested Visits Authorized [id number] Closed 12/07/2019 12/06/2020 1 1 Encounter Details Date Type Department Care Team Description 12/07/2019 Orders Only Leonid Blount nchiectasis With Milka Stern M.D. 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 [address] [place] [phone] 05/08/2022 Appointment Laboratory Medicine Angélica Granger P.A.-CDemetrius [address] [place] [phone] 05/08/2022 Clinical Admitting/Central Communication Scheduling 05/10/2022 Appointment Radiology Jeremie Rose M.D. [address] [place] [phone] 05/10/2022 Comprehensive Visit Orthopedic Surgery Warner Graves M.D. [address] [place] [phone] 05/22/2022 Appointment Laboratory Medicine Angélica Granger P.A.-C. [address] [place] [phone] 06/05/2022 Appointment Laboratory Medicine Angélica Granger P.A.-C. [address] [place] [phone] 06/19/2022 Appointment Laboratory Medicine Angélica Granger P.A.-C. [address] [place] [phone] 07/03/2022 Appointment Laboratory Medicine Angélica Granger P.A.-C. [address] [place] [phone] 07/17/2022 Appointment Laboratory Medicine Angélica Granger P.A.-C. [address] [place] [phone] 07/31/2022 Appointment Laboratory Medicine Angélica Granger P.A.-C. [address] [place] [phone] 08/14/2022 Appointment Laboratory Medicine Angélica Granger P.A.-C. [address] [place] [phone] 08/28/2022 Appointment Laboratory Medicine Angélica Granger P.A.-C. [address] [place] [phone] documented as of this encounter Results Bronchoscopy (Adult): (12/15/2019 10:24 AM CDT) Leonid Simon M.D. PROCEDURE/MINOR SURGICAL ORD ERABLES Performing Organization Address City/State/ZIP Code Phon e Number MMODAL documented in this encounter Visit Diagnoses Diagnosis Bronchiectasis With Acute Exacerbation ( HCC) - Primary documented in this encounter Additional Health Concerns Assessment Noted Time PHQ-9 Depression Total Score: 3 11/22/2019 7:34 AM CDT documented as of this encounter Care Teams Neurology Teacher Relationship Specialty Start Date End Date Elsewhere, Pcp PCP - General Family Medicine 07/29/17 documented as of this encounter
--- OUTSIDE RECORDS SUMMARY | 2022-04-13 12:27 | XMS_ITS | Encounter Summary ---
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 [address] [place] [phone] 04/25/2022 Office Visit Otorhinolaryngology Dex Matta APRN, C.N.P., M.S.N. [address] [place] [phone] 05/08/2022 Appointment Laboratory Medicine Angélica Granger P.A.-CDemetrius [address] [place] [phone] 05/08/2022 Clinical Admitting/Central Communication Scheduling 05/10/2022 Appointment Radiology Jeremie Rose M.D. [address] [place] [phone] 05/10/2022 Comprehensive Visit Orthopedic Surgery Warner Graves M.D. [address] [place] [phone] 05/22/2022 Appointment Laboratory Medicine Angélica Granger P.A.-CDemetrius [address] [place] [phone] 06/05/2022 Appointment Laboratory Medicine Angélica Granger P.A.-C. [address] [place] [phone] 06/19/2022 Appointment Laboratory Angélica Royal P.A.-C. [address] [place] [phone] 07/03/2022 Appointment Laboratory Medicine Angélica Granger P.A.-C. [address] [place] [phone] 07/17/2022 Appointment Laboratory Angélica Royal P.A.-C. [address] [place] [phone] 07/31/2022 Appointment Laboratory Medicine Angélica Granger P.A.-C. [address] [place] [phone] 08/14/2022 Appointment Laboratory Angélica Royal P.A.-C. [address] [place] [phone] 08/28/2022 Appointment Laboratory Angélica Royal P.A.-C. [address] [place] [phone] documented as of this encounter Visit Diagnoses Not on filedocumented in this encounter Additional Health Concerns Assessment Noted Time PHQ-9 Depression Total Score: 3 11/22/2019 7:34 AM CDT documented as of this encounter Care Teams Senior Compliance Analyst Relationship Specialty Start Date End Date Elsewhere, Pcp PCP - General Family Medicine 07/29/17 documented as of this encounter
--- OUTSIDE RECORDS SUMMARY | 2022-04-13 12:27 | XMS_ITS | Encounter Summary ---
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 - 12/07/2019 4:06 PM CDT Bronchiectasis/immunocompromised host Please see my previous note of 11/23/2019. Because the gentleman's cough and productive sputum that has not improved, we will proceed to additional testing. We initially tried an inhaled bronchodilator, as well as a short course of steroids. This did not improve the situation. We then went on to a short course of Levaquin which again has not provided in the substantial improvement to his situation. The CT scan has suggested the tree-in-bud appearance so we are going to proceed to bronchoscopic evaluation. 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 A bronchoscopic evaluation should follow all the immunocompromised host testing pathways.. We have ordered the bronch for 12/15 2019 on Gonda 18. COVID testing will be done on 12/13 2019. Mr. Granger will arrange for the COVID testing. The patient should be NPO after midnight on the . Procedure will be explained to him the telephone. We have previously discussed this possibility if things did not get better. documented in this encounter Plan of Treatment Upcoming Encounters Date Type Specialty Care Team Description 04/24/2022 Appointment Laboratory Medicine EmiliejeriAngélica, PDemetriusADemetrius-C. [address] [place] [phone] 04/25/2022 Office Visit Otorhinolaryngology Dex Matta APRN, C.N.P., M.S.N. [address] [place] [phone] 05/08/2022 Appointment Laboratory Medicine Angélica Granger P.A.-C. [address] [place] [phone] 05/08/2022 Clinical Admitting/Central Communication Scheduling 05/10/2022 Appointment Radiology Jeremie Rose M.D. [address] [place] [phone] 05/10/2022 Comprehensive Visit Orthopedic Surgery Warner Graves M.D. [address] [place] [phone] 05/22/2022 Appointment Laboratory Medicine Angélica Granger P.A.-C. [address] [place] [phone] 06/05/2022 Appointment Laboratory Medicine Angélica Granger P.A.-C. [address] [place] [phone] 06/19/2022 Appointment Laboratory Medicine Angélica Granger P.A.-C. [address] [place] [phone] 07/03/2022 Appointment Laboratory Medicine Angélica Granger P.A.-C. [address] [place] [phone] 07/17/2022 Appointment Laboratory Medicine Angélica Granger P.A.-C. [address] [place] [phone] 07/31/2022 Appointment Laboratory Medicine Angélica Granger P.A.-C. [address] [place] [phone] 08/14/2022 Appointment Laboratory Medicine Angélica Granger P.A.-C. [address] [place] [phone] 08/28/2022 Appointment Laboratory Medicine Angélica Granger P.A.-C. [address] [place] [phone] documented as of this encounter Visit Diagnoses Not on filedocumented in this encounter Additional Health Concerns Assessment Noted Time PHQ-9 Depression Total Score: 3 11/22/2019 7:34 AM CDT documented as of this encounter Care Teams Toy Assembler Relationship Specialty Start Date End Date Elsewhere, Pcp PCP - General Family Medicine 07/29/17 documented as of this encounter
--- OUTSIDE RECORDS SUMMARY | 2022-04-13 12:27 | XMS_ITS | Encounter Summary ---
:1955 Author Organization [facility] Address [address] [place] [address] Care Team Providers Name Role Phone Elsewhere, Pcp Primary Care Provider Unavailable Encounter Details Date Type Department Care Team Description 12/28/2019 Orders Only Blanca Luis [facility]. 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 [address] [place] [phone] 04/25/2022 Office Visit Otorhinolaryngology Dex Matta APRN, C.N.P., M.S.N. [address] [place] [phone] 05/08/2022 Appointment Laboratory Medicine Angélica Granger P.A.-C. [address] [place] [phone] 05/08/2022 Clinical Admitting/Central Communication Scheduling 05/10/2022 Appointment Radiology Jeremie Rose M.D. [address] [place] [phone] 05/10/2022 Comprehensive Visit Orthopedic Surgery Warner Graves M.D. [address] [place] [address] [phone] 05/22/2022 Appointment Laboratory Medicine Angélica Granger P.A.-C. [address] [place] [address] [phone] 06/05/2022 Appointment Laboratory Medicine Angélica Granger P.A.-C. [address] [place] [phone] 06/19/2022 Appointment Laboratory Medicine Angélica Granger P.A.-C. [address] [place] [phone] 07/03/2022 Appointment Laboratory Medicine Angélica Granger P.A.-C. [address] [place] [phone] 07/17/2022 Appointment Laboratory Medicine Angélica Granger P.A.-C. [address] [place] [phone] 07/31/2022 Appointment Laboratory Medicine Angélica Granger P.A.-C. [address] [place] [phone] 08/14/2022 Appointment Laboratory Medicine Angélica Granger P.A.-C. [address] [place] [phone] 08/28/2022 Appointment Laboratory Medicine Angélica Granger P.A.-C. [address] [place] [phone] documented as of this encounter Results Bacterial Culture, Aerobic + Susc, Resp (12/29/2019 11:20 AM CDT) Analysis Performed At Patho logist Time Signature Bacterial Usual 12/31/2019 D[facility] Culture, efrem 11:30 AM CDT Aerobic, Resp Specimen Anatomical Collection Method Collection Time Receive d Time (Source) Location / / Volume Laterality Sputum (Sputum) 12/29/2019 11:20 12/29/19 20 1:55 AM CDT PM CDT Comment: Specimen Source Site: Sputum Angélica Granger P.A.-C. LAB MICROBIOLOGY - GENERAL O GLADYS Performing Organization Address City/State/ZIP Code Phon e Number [facility] - [address] [place], [place] [address] [facility] [place] [address] Laboratories-[facility] [address] documented in this encounter Visit Diagnoses Diagnosis Transplant Liver (HCC) - Primary documented in this encounter Additional Health Concerns Assessment Noted Time PHQ-9 Depression Total Score: 3 11/22/2019 7:34 AM CDT documented as of this encounter Care Teams Staff Weapons Officer Relationship Specialty Start Date End Date Elsewhere, Pcp PCP - General Family Medicine 07/29/17 documented as of this encounter
--- OUTSIDE RECORDS SUMMARY | 2022-04-13 12:27 | XMS_ITS | Encounter Summary ---
:[address] [facility] Address [address] [place] [address] Care Team Providers Name Role Phone Elsewhere, Pcp Primary Care Provider Unavailable Encounter Details Date Type Department Care Team Description 12/06/2019 Orders Only Curt Rene [facility] Michele Granger for Transplantation and P.A.-C. 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 [address] [place] [phone] 04/25/2022 Office Visit Otorhinolaryngology Dex Matta APRN, C.N.P., M.S.N. [address] [place] [phone] 05/08/2022 Appointment Laboratory Medicine Angélica Granger P.A.-CDemetrius [address] [place] [phone] 05/08/2022 Clinical Admitting/Central Communication Scheduling 05/10/2022 Appointment Radiology Jeremie Rose M.D. [address] [place] [phone] 05/10/2022 Comprehensive Visit Orthopedic Surgery Warner Graves M.D. [address] [place] [phone] 05/22/2022 Appointment Laboratory Medicine Angélica Granger P.A.-C. [address] [place] [phone] 06/05/2022 Appointment Laboratory Medicine Angélica Granger P.A.-C. [address] [place] [phone] 06/19/2022 Appointment Laboratory Medicine Angélica Granger P.A.-C. [address] [place] [phone] 07/03/2022 Appointment Laboratory Medicine Angélica Granger P.A.-C. [address] [place] [phone] 07/17/2022 Appointment Laboratory Medicine Angélica Granger P.A.-C. [address] [place] [phone] 07/31/2022 Appointment Laboratory Medicine Angélica Granger P.A.-C. [address] [place] [phone] 08/14/2022 Appointment Laboratory Medicine Angélica Granger P.A.-C. [address] [place] [phone] 08/28/2022 Appointment Laboratory Medicine Angélica Granger P.A.-C. [address] [place] [phone] documented as of this encounter Visit Diagnoses Not on filedocumented in this encounter Additional Health Concerns Infection Onset Date Last Indicated Resolved Time COVID19 Pending 12/13/2019 12/13/2019 12/14/2019 11:03 AM CDT Assessment Noted Time PHQ-9 Depression Total Score: 3 11/22/2019 7:34 AM CDT documented as of this encounter Care Teams Paramedic Relationship Specialty Start Date End Date Elsewhere, Pcp PCP - General Family Medicine 07/29/17 documented as of this encounter
--- OUTSIDE RECORDS SUMMARY | 2022-04-13 12:27 | XMS_ITS | Encounter Summary ---
:1955 Author Organization [facility] Address [address] [place] [address] Care Team Providers Name Role Phone Elsewhere, Pcp Primary Care Provider Unavailable Reason for Referral MRI/CAT/PET Scan (Routine) - Closed Specialty Diagnoses / Procedures Referred By Contact Refer red To Contact Radiology Diagnoses Transplant Liver (HCC) nAgélica Granger P.A.-Janette [facility] Procedures CT Chest without IV Contrast [address] [place] [phone] Referral ID Status Reason Start Date Expiration Date Visits Requ ested Visits Authorized [id number] Closed 12/27/2019 12/26/2020 1 1 Outpatient (Routine) - Closed Specialty Diagnoses / Procedures Referred By Contact Refer red To Contact Pulmonary Medicine Diagnoses Transplant Liver (HCC) Angélica Granger [facility] P.A.-CDemetrius [address] [place] [phone] Referral ID Status Reason Start Date Expiration Date Visits Requ ested Visits Authorized [id number] Closed 12/27/2019 12/26/2020 1 1 Transplant (Routine) - Closed Specialty Diagnoses / Procedures Referred By Contact Refer red To Contact Transplant Surgery / Diagnoses Transplant Liver (HCC) Angélica Granger [facility] Transplant P.A.-CDemetrius [address] [place] [address] Referral ID Status Reason Start Date Expiration Date Visits Requ ested Visits Authorized [id number] Closed 12/27/2019 12/26/2020 1 1 Encounter Details Date Type Department Care Team Description 12/27/2019 Orders Only Blanca Luis [facility] 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 [address] [place] [phone] 04/25/2022 Office Visit Otorhinolaryngology Dex Matta APRN, C.N.P., M.S.N. [address] [place] [phone] 05/08/2022 Appointment Laboratory Medicine Angélica Granger P.A.-C. [address] [place] [phone] 05/08/2022 Clinical Admitting/Central Communication Scheduling 05/10/2022 Appointment Radiology Jeremie Rose M.D. [address] [place] [phone] 05/10/2022 Comprehensive Visit Orthopedic Surgery Warner Graves M.D. [address] [place] [phone] 05/22/2022 Appointment Laboratory Medicine Angélica Granger P.A.-C. [address] [place] [address] [phone] 06/05/2022 Appointment Laboratory Medicine Angélica Granger P.A.-C. [address] [place] [phone] 06/19/2022 Appointment Laboratory Medicine Angélica Granger P.A.-C. [address] [place] [phone] 07/03/2022 Appointment Laboratory Medicine Angélica Granger P.A.-C. [address] [place] [phone] 07/17/2022 Appointment Laboratory Medicine Angélica Granger P.A.-C. [address] [place] [phone] 07/31/2022 Appointment Laboratory Medicine Angélica Granger P.A.-C. [address] [place] [phone] 08/14/2022 Appointment Laboratory Medicine Angélica Granger P.A.-C. [address] [place] [phone] 08/28/2022 Appointment Laboratory Medicine Angélica Granger P.A.-C. [address] [place] [phone] Scheduled Referrals Name Type Priority Associated Order Schedule Diagnoses Transplant Liver Outpatient Referral Routine Transplant Liver Expected: office visit (HCC) 12/28/2019 (clinic) (Approximate), Expires: 12/26/2020 Pulmonary Medicine Outpatient Referral Routine Transplant Live r Expected: office visit (HCC) 12/28/2019 (clinic) (Approximate), Expires: 12/26/2020 documented as of this encounter Results CT [...] plugging. Angélica Granger P.A.-C. IMG CT PROCEDURES (ABNORMAL) Tacrolimus, B (12/29/2019 7:22 AM CDT) athologist Signature Tacrolimus, B 2.6 (L) 5.0-15.0 12/29/2019 [facility]14 PM CDT ng/mL Comment: ----ADDITIONAL [...] performa nce characteristics determined by [facility] in a manner consistent with CLIA [...] Address City/State/ZIP Code Phon e Number [facility] [address] [place], [place] [address] [place] [address] [place] [address] Laboratory Medicine and Pathology [address] [place] (ABNORMAL) CBC no call back, reflex T/S HGB <8 (12/29/2019 7:22 AM CDT) [facility] Method Time Signature Hemoglobin 10.0 (L) 13.2 [...] Address City/State/ZIP Code Phon e Number [facility] - [address] [place], [place] [address] [facility] [place] [address] Laboratories-[facility] [address] [facility] (ABNORMAL) Comprehensive Metabolic Panel (12/29/2019 7:22 AM [...] 12/29/2019 D[facility] Black/ mL/min/BSA 8:30 AM CDT Moroccan Comment: ----ADDITIONAL INFORMATION---- Estimated GFR calculated using [...] P.A.-C. LAB BLOOD ADD-ON Performing Organization Address City/[facility] Phon e Number [facility] [address] Bilirubin, Direct (12/29/2019 7:22 AM CDT) P athologist Signature Bilirubin, <0.2 0.0 - 0.3 12/29/2019 D[facility] Direct, S mg/dL 8:30 AM CDT Specimen Anatomical Collection Method Collection Time Receive d Time (Source) Location / / Volume Laterality Blood (Blood, 12/29/2019 7:22 AM 12/29/19 8:07 Venous) CDT AM CDT Angélica Granger P.A.-C. LAB BLOOD ADD-ON Performing Organization Address City/[facility] Phon e Number [facility] - [address] [place] [address] [facility] [address] documented in this encounter Visit Diagnoses Diagnosis Transplant Liver (HCC) - Primary Transplant Liver (HCC) documented in this encounter Additional Health Concerns Assessment Noted Time PHQ-9 Depression Total Score: 3 11/22/2019 7:34 AM CDT documented as of this encounter Care Teams Director Hair Relationship Specialty Start Date End Date Elsewhere, Pcp PCP - General Family Medicine 07/29/17 documented as of this encounter
--- OUTSIDE RECORDS SUMMARY | 2022-04-13 12:28 | XMS_ITS | Encounter Summary ---
:1955 Author Organization [facility] Address [address] [place] [address] Care Team Providers Name Role Phone Elsewhere, Pcp Primary Care Provider Unavailable Encounter Details Date Type Department Care Team Description 11/23/2019 Hospital Encounter Department of Angélica Granger ant Liver (HCC); Laboratory Medicine J PDemetriusADurgaC. 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 Maintenance multivitamin tablet Take 1 tablet by 0 [...] 10/03/2020 200 mg tablet MOUTH TWICE DAILY levothyroxine Take 1 tablet (25 90 tablet 3 12/21/201802/2020 (SYNTHROID, LEVOTHROID) mcg total) by mouth 25 mcg tablet every morning before breakfast. levothyroxine TAKE 1 TABLET BY 90 tablet 0 11/30/201911/30 (SYNTHROID, LEVOTHROID) MOUTH EVERY MORNING 25 mcg tablet BEFORE BREAKFAST mycophenolate (CELLCEPT) TAKE 1 TABLET BY 180 tablet 3 11/2111/06/2020 500 mg MOUTH TWICE DAILY tabletIndications: Transplant Liver (HCC) predniSONE (DELTASONE) Take 1 tablet (10 15 tablet 0 201905/22/2020 10 mg tablet mg total) by mouth daily. predniSONE (DELTASONE) 5 Take 1 tablet (5 mg 90 tablet 3 07/20/2020 mg tabletIndications: total) by mouth Transplant Liver (HCC), daily. Medication Therapy Charge Accounts Audit Clerk Not Anticoagulant tacrolimus (PROGRAF) 0.5 Take 2 capsules (1 360 capsule 3 07/20/2020 mg capsuleIndications: mg total) by mouth Transplant Liver ([facility]), 2 (two) times a Medication Therapy Long [...] Laboratory Medicine Angélica Granger P.A.-C. [address] [place] [address] 04/25/2022 Office Visit Otorhinolaryngology Dex Matta APRN, C.N.P., M.S.N. [address] [place] [phone] 05/08/2022 Appointment Laboratory Medicine Angélica Granger P.A.-CDemetrius [address] [place] [phone] 05/08/2022 Clinical Admitting/Central Communication Scheduling 05/10/2022 Appointment Radiology Jeremie Rose M.D. [address] [place] [phone] 05/10/2022 Comprehensive Visit Orthopedic Surgery Warner Graves M.D. [address] [place] [phone] 05/22/2022 Appointment Laboratory Medicine Angélica Granger P.A.-C. [address] [place] [phone] 06/05/2022 Appointment Laboratory Medicine Angélica Granger P.A.-C. [address] [place] [phone] 06/19/2022 Appointment Laboratory Medicine Angélica Granger P.A.-C. [address] [place] [phone] 07/03/2022 Appointment Laboratory Medicine Angélica Granger P.A.-C. [address] [place] [phone] 07/17/2022 Appointment Laboratory Medicine Angélica Granger P.A.-C. [address] [place] [phone] 07/31/2022 Appointment Laboratory Medicine Angélica Granger P.A.-C. [address] [place] [phone] 08/14/2022 Appointment Laboratory Medicine Angélica Gragner P.A.-C. [address] [place] [phone] 08/28/2022 Appointment Laboratory Medicine Angélica Granger P.A.-C. [address] [place] [phone] Scheduled Orders Name Type Priority Associated Diagnoses Order S chedule Short renal Procedures Routine Transplant Liver (HCC) Once for 1 clearance: Medication Therapy Long Occu rrences starting Iothalamate (Renal Term Not Anticoagulant 11/23/2019 until Studies Unit) 11/23/2019 documented as of this encounter Procedures Procedure Name Priority Date/Time Associated Comments Diagnosis IOTHALAMATE, Routine 11/23/2019 12:00 PM Results for this GLOMERULAR CDT procedure are i n FILTRATION RATE, P the resul ts section. documented in this encounter Results (ABNORMAL) Iothalamate, Glomerular Filtration Rate (11/23/2019 12:00 PM CDT) P athologist Signature Uncorrctd 34 mL/min 11/23/2019 DAVE Iothal Cl 4:16 PM CDT Corrctd Iothal 31 (L) 65 - 119 11/23/2019 DAVE Cl mL/min/BSA 4:16 PM CDT Comment: ----ADDITIONAL INFORMATION---- This test was developed and its performa nce characteristics determined by [facility] in a manner consistent with CLIA requirements. This test has not been cleared or approved by the U.S. Mer d and Drug Administration. Specimen Anatomical Collection Method Collection Time Receive d Time (Source) Location / / Volume Laterality Varies (Blood, 11/23/2019 12:00 0 2:14 Venous) PM CDT PM CDT Narrative [facility] - 11/23/2019 4:16 PM CDT Specimen Information: Specimen ID: [id number] Specimen Type: Varies Specimen Collection Start Date: 0 12:00 PM Specimen Received Date: 11/23/2019 ??2:14 PM Specimen ID: [id number] Specimen Type: Varies Specimen Collection Start Date: 0 ??1:02 PM Specimen Received Date: 11/23/2019 ??2:14 PM Specimen ID: [id number] Specimen Type: Varies Specimen Collection Start Date: 0 ??1:48 PM Specimen Received Date: 11/23/2019 ??2:14 PM Specimen ID: [id number] Specimen Type: Varies Specimen Collection Start Date: 0 ??1:06 PM Specimen Received Date: 11/23/2019 ??2:14 PM Specimen ID: [id number] Specimen Type: Varies Specimen Collection Start Date: 0 ??1:51 PM Specimen Received Date: 11/23/2019 ??2:14 PM Angélica Granger P.A.-C. LAB BLOOD NON ADD-ON Performing Organization Address City/State/ZIP Code Phon e Number [facility] - [address] [place], [place] [address] [place] [address] [facility] [address] documented in this encounter Visit Diagnoses Diagnosis Transplant Liver (HCC) Medication Therapy Charge Accounts Audit Clerk Not Anticoa gulant documented in this encounter Administered Medications Inactive Administered Medications - up to 3 most recent administrations Medication Order MAR Action Action Date Dose Rate Site iothalamate meglumine 30 % Given 11/23/2019 12:04 PM 1 mL Right Outer Thigh injection 1 mL (CONRAY 30) CDT 1 mL, subcutaneous, Once, On Fri11/23/19 at 1200, For 1 dose documented in this encounter Additional Health Concerns Assessment Noted Time PHQ-9 Depression Total Score: 3 11/22/2019 7:34 AM CDT documented as of this encounter Care Teams Smt Operator Relationship Specialty Start Date End Date Elsewhere, Pcp PCP - General Family Medicine 07/29/17 documented as of this encounter
--- OUTSIDE RECORDS SUMMARY | 2022-04-13 12:28 | XMS_ITS | Encounter Summary ---
:1955 Author Organization [facility] Address [address] [place] [address] Care Team Providers Name Role Phone Elsewhere, Pcp Primary Care Provider Unavailable Reason for Visit Reason Comments Annual Exam Transplant (Routine) - Closed Specialty Diagnoses / Procedures Referred By Contact Refer red To Contact Transplant Surgery / Diagnoses Transplant Liver (HCC) Medication Therapy Treating And Pumping Supervisor Not Anticoagulant Angélica Granger [facility] Transplant P.A.-C. [address] [place] [phone] Referral ID Status Reason Start Date Expiration Date Visits Requ ested Visits Authorized [id number] Closed 06/21/2019 06/20/2020 1 1 Encounter Details Date Type Department Care Team Description 11/22/2019 Nurse Only Curt Rene [facility] Angélica Caldwell, P.A.-C. [address] [place] [phone] Annual Exam for Transplantation and Blanca Canales R.N. 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 Bruce is seen in clinic today for his annual visit. Overall Bruce is doing well. He had a chance to visit with the pre kidney team last week. He is still not activated on the waitlist. For additional follow up recommendations please see Angélica Granger's note. ----- Has the patient been hospitalized since last patient status date? no Was there evidence of noncompliance with immunosuppression medication during this follow-up period that compromised the patient's recovery? No Karnofsky Score = 80: Normal activity with effort, some symptoms. The source of this information is the patient. Physical capacity: No limitations. Working for income: No, patient choice, retired. New on-set diabetes during the follow-up period? No Did the patient have any acute rejection episodes during the follow-up period? No. Biological or anti-viral therapy? No Recipient diagnosed with any malignant cancer since last follow-up? No ---- Currently having labs done every 3 months. Will keep current schedule unless otherwise dictated by provider. Bruce Singh has labs drawn at [facility]. ---- Bruce Singh's local provider is Dr. Cole at [facility]. ---- Reviewed current test results, vital signs, [...] Laboratory Medicine Angélica Granger P.A.-C. [address] [place] [phone] 04/25/2022 Office Visit Otorhinolaryngology Dex Matta APRN, CDemetriusNDemetriusP., M.S.N. [address] [place] [phone] 05/08/2022 Appointment Laboratory Medicine Angélica Granger P.A.-C. [address] [place] [phone] 05/08/2022 Clinical Admitting/Central Communication Scheduling 05/10/2022 Appointment Radiology Jeremie Rose M.D. [address] [place] [phone] 05/10/2022 Comprehensive Visit Orthopedic Surgery Warner Graves M.D. [address] [place] [phone] 05/22/2022 Appointment Laboratory Medicine Angélica Granger P.A.-C. [address] [place] [phone] 06/05/2022 Appointment Laboratory Medicine Angélica Garnger P.A.-C. [address] [place] [phone] 06/19/2022 Appointment Laboratory Medicine Angélica Granger P.A.-C. [address] [place] [phone] 07/03/2022 Appointment Laboratory Medicine Angélica Granger P.A.-C. [address] [place] [phone] 07/17/2022 Appointment Laboratory Medicine Angélica Granger P.A.-C. [address] [place] [phone] 07/31/2022 Appointment Laboratory Medicine Angélica Granger P.A.-C. [address] [place] [phone] 08/14/2022 Appointment Laboratory Medicine Angélica Granger P.A.-C. [address] [place] [phone] 08/28/2022 Appointment Laboratory Medicine Angélica Granger P.A.-C. [address] [place] [phone] documented as of this encounter Visit Diagnoses Diagnosis Transplant Liver (HCC) Medication Therapy Treating And Pumping Supervisor Not Anticoa gulant documented in this encounter Additional Health Concerns Assessment Noted Time PHQ-9 Depression Total Score: 3 11/22/2019 7:34 AM CDT documented as of this encounter Care Teams Clinical Quality Manager Relationship Specialty Start Date End Date Elsewhere, Pcp PCP - General Family Medicine 07/29/17 documented as of this encounter
--- OUTSIDE RECORDS SUMMARY | 2022-04-13 12:28 | XMS_ITS | Encounter Summary ---
:1955 Author Organization [facility] Address [address] [place] [address] Care Team Providers Name Role Phone Elsewhere, Pcp Primary Care Provider Unavailable Encounter Details Date Type Department Care Team Description 11/17/2019 Documentation Division of Nephrology and Jorge L Chau, 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 - 11/17/2019 4:21 PM CDT I reviewed this case with Dr. Joce Bailey. I did not meet Mr. Singh . I agree with the impression and plan recorded by Dr. Joce Bailey. 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 He has had two liver transplants, 1998 and 2012. Kidney biopsy has shown focal segmental glomerulosclerosis with collapsing features. Serum creatinine is fairly stable in the 2.7-3.0 range. He has minimal micro albuminuria. He also has bilateral renal artery stenosis. The left side has been stented; the right has not, withvelocities in the 220-300 range. Blood pressure is adequately controlled on amlodipine, doxazosin and torsemide. There is no indication for renal artery stenting at present. Last visit we discontinued Carvedilol due to bradycardia. The bradycardia has resolved. Mr. Singh has been approved for a kidney transplant if/when his GFR drops below 20. Currently it is a little too high. We will continue to follow labs every three months and see him every six months with our liver transplant colleagues. Cristi Chau MD documented in this encounter Plan of Treatment Upcoming Encounters Date Type Specialty Care Team Description 04/24/2022 Appointment Laboratory Medicine Angélica Granger P.A.-C. [address] [place] [phone] 04/25/2022 Office Visit Otorhinolaryngology Dex Matta APRN CDemetriusNJuan Miguel, M.S.N. [address] [place] [phone] 05/08/2022 Appointment Laboratory Medicine Angélica Granger P.A.-C. [address] [place] [phone] 05/08/2022 Clinical Admitting/Central Communication Scheduling 05/10/2022 Appointment Radiology Jeremie Rose M.D. [address] [place] [phone] 05/10/2022 Comprehensive Visit Orthopedic Surgery Warner Graves M.D. [address] [place] [phone] 05/22/2022 Appointment Laboratory Medicine Angélica Grnager P.A.-C. [address] [place] [phone] 06/05/2022 Appointment Laboratory Medicine Angélica Granger P.A.-C. [address] [place] [phone] 06/19/2022 Appointment Laboratory Medicine Angélica Granger P.A.-C. [address] [place] [phone] 07/03/2022 Appointment Laboratory Medicine Angélica Granger P.A.-C. [address] [place] [phone] 07/17/2022 Appointment Laboratory Medicine Angélica Granger P.A.-C. [address] [place] [phone] 07/31/2022 Appointment Laboratory Medicine Angélica Granger P.A.-C. [address] [place] [phone] 08/14/2022 Appointment Laboratory Medicine Angélica Granger P.A.-C. [address] [place] [phone] 08/28/2022 Appointment Laboratory Medicine Angélica Granger P.A.-C. [address] [place] [phone] documented as of this encounter Visit Diagnoses Not on filedocumented in this encounter Additional Health Concerns Assessment Noted Time PHQ-9 Depression Total Score: 5 03/02/2019 10:51 AM CD T documented as of this encounter Care Teams Copy Room Technician Relationship Specialty Start Date End Date Elsewhere, Pcp PCP - General Family Medicine 07/29/17 documented as of this encounter
--- OUTSIDE RECORDS SUMMARY | 2022-04-13 12:28 | XMS_ITS | Encounter Summary ---
:1955 Author Organization [facility] Address [address] [place] [address] Care Team Providers Name Role Phone Elsewhere, Pcp Primary Care Provider Unavailable Reason for Visit Transplant (Routine) - Closed Specialty Diagnoses / Procedures Referred By Contact Refer red To Contact Transplant Surgery / Diagnoses Transplant Liver (HCC) Medication Therapy Coper Hand Not Anticoagulant Angélica Granger [facility] Transplant P.A.-C. [address] [place] [phone] Referral ID Status Reason Start Date Expiration Date Visits Requ ested Visits Authorized [id number] Closed 06/21/2019 06/20/2020 1 1 Encounter Details Date Type Department Care Team Description 11/22/2019 Office Visit Angélica Ching, P.A.-C. [address] [place] [phone] Bipolar In Remission (Full) (HCC) (Prima ry Dx); Zofia Claros M.D. 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 - 11/22/2019 8:30 AM CDT Bruce Singh [address] [facility] [address] 64 y.o. History of Present Illness: I interviewed the patient and reviewed the [facility] record at the time of this evaluation. He reports that he has done well in the last year. He continues on Lamictal 400 mg daily. He reports that is mood is stable and his interest is intact. He just moved into his mother's condo and sold his home.He has had to dispose of many items which belonged to his mother and also downsized his own possessions. His sleep is unchanged with some chronic problems with ruminating at night. His appetite is good. Energy is low. His concentration is ok and he denies suicidal ideation. He denies any manic symptoms. He does not have a local psychiatrist. He has many friends who could be here with him at the time of transplant. The patient reports compliance with medications, abstinence from alcohol, drugs and nicotine. The patient reports no current pain problems or use of opiates. Rating Scales: PHQ-9 Total Score (max 27): 3 (11/22/19 0734) NIDHI-7 Total Score (max 21): 6 (11/19/192020) Audit Score: 0 (11/19/192021) Current Outpatient Medications Medication Sig Dispense Refill ??? acetaminophen (TYLENOL) 500 mg tablet Take 1 tablet by mouth every 6 (six) hours as needed. Pain. No more than 2000 mg per day. ??? amLODIPine (NORVASC) 10 mg tablet TAKE 1 TABLET BY MOUTH DAILY 90 tablet 3 ??? amoxicillin (AMOXIL) 500 mg capsule Take 4 capsules by mouth as directed. Prior to dental procedures 0 ??? aspirin (ASPIRIN CHILDRENS) 81 mg chewable tablet Chew daily. ??? aspirin [address] tablet Take 81 mg by mouth daily. ??? atorvastatin (LIPITOR) 10 mg tablet Take 1 tablet (10 mg total) by mouth daily. 90 tablet 3 ??? CALCIUM-MAGNESIUM ORAL Take 2 capsules by mouth 2 (two) times a day. 400mg calcium twice daily ??? cholecalciferol (VITAMIN D3) 2,000 Unit tablet Take 1 tablet by mouth daily. ??? coenzyme Q10 (CO Q-10) 200 mg capsule Take 1 capsule by mouth daily. ??? doxazosin (CARDURA) 4 mg tablet Take 1 tablet (4 mg total) by mouth daily. 90 tablet 3 ??? fluticasone (FLONASE ALLERGY RELIEF) 50 mcg/actuation nasal spray Administer 1 spray into affected nostril(s) daily as needed. One to two sprays per nostril daily for allergies; mostly for fall allergies ??? glucosamine-chondroitin (GLUCOSAMINE-CHONDROITIN) 500-400 mg per capsule Take 4 capsules by mouth daily. ??? ipratropium (ATROVENT) 42 mcg (0.06 %) nasal spray Administer 2 sprays into affected nostril(s) 4 (four) times a day as needed for rhinitis. Maintenance ??? lamoTRIgine (LaMICtal) 200 mg tablet TAKE 1 TABLET BY MOUTH TWICE DAILY 200 tablet 3 ??? levothyroxine (SYNTHROID, LEVOTHROID) 25 mcg tablet Take 1 tablet (25 mcg total) by mouth every morning before breakfast. 90 tablet 3 ??? loratadine (CLARITIN) 10 [...] 3 ??? torsemide (DEMADEX) 10 mg tablet TAKE 3 TABLETS BY MOUTH DAILY. RESTARTED ON 03/26/17. MAINTNANCE. 270 tablet 1 ??? traZODone (DESYREL) 100 mg tablet Take [...] 5 Diagnosis ASSESSMENT / PLAN #1 Bipolar In Remission (Full) ([facility]) #2 Moderate Or Severe Use Disorder (Dependence) Alcohol Remission (HCC) #3 Transplant Liver (HCC) #4 Medication Therapy Coper Hand Not Anticoagulant Plan: He will continue on Lamictal and will notify us if he notices any significant change in his mood status. He continues to do well. PACT = 2. He will return next at his annual visit or sooner if symptomsemerge. documented in this encounter Plan of Treatment Upcoming Encounters Date Type Specialty Care Team Description 04/24/2022 Appointment Laboratory Medicine Angélica Granger P.A.-C. [address] [place] [phone] 04/25/2022 Office Visit Otorhinolaryngology Dex Matta APRN, C.N.P., M.S.N. [address] [place] [phone] 05/08/2022 Appointment Laboratory Medicine Angélica Granger P.A.-CDemetrius [address] [place] [phone] 05/08/2022 Clinical Admitting/Central Communication Scheduling 05/10/2022 Appointment Radiology Jeremie Rose M.D. [address] [place] [phone] 05/10/2022 Comprehensive Visit Orthopedic Surgery Warner Graves M.D. [address] [place] [phone] 05/22/2022 Appointment Laboratory Medicine Angélica Granger P.A.-CDemetrius [address] [place] [phone] 06/05/2022 Appointment Laboratory Medicine Angélica Granger P.A.-C. [address] [place] [phone] 06/19/2022 Appointment Laboratory Medicine Angélica Granger P.A.-C. [address] [place] [phone] 07/03/2022 Appointment Laboratory Medicine Angélica Granger P.A.-C. [address] [place] [phone] 07/17/2022 Appointment Laboratory Medicine Angélica Granger P.A.-C. [address] [place] [phone] 07/31/2022 Appointment Laboratory Medicine Angélica Granger P.A.-C. [address] [place] [phone] 08/14/2022 Appointment Laboratory Medicine Angélica Granger P.A.-C. [address] [place] [address] [phone] 08/28/2022 Appointment Laboratory Medicine Angélica Granger P.A.-C. [address] [place] [address] [phone] documented as of this encounter Visit Diagnoses Diagnosis Bipolar In Remission (Full) (HCC) - Prim marimar Moderate Or Severe Use Disorder (Depende nce) Alcohol Remission (HCC) Transplant Liver (HCC) Medication Therapy Usp Not Anticoa gulant documented in this encounter Additional Health Concerns Assessment Noted Time PHQ-9 Depression Total Score: 3 11/22/2019 7:34 AM CDT documented as of this encounter Care Teams Industrial Organization Manager Relationship Specialty Start Date End Date Elsewhere, Pcp PCP - General Family Medicine 07/29/17 documented as of this encounter
--- OUTSIDE RECORDS SUMMARY | 2022-04-13 12:28 | XMS_ITS | Encounter Summary ---
:[address] [facility] Address [address] [place] [address] Care Team Providers Name Role Phone Elsewhere, Pcp Primary Care Provider Unavailable Reason for Referral Outpatient (Routine) - Closed Specialty Diagnoses / Procedures Referred By Contact Refer red To Contact Dermatology Diagnoses Squamous Cell Carcinoma In Situ Tres Llamas M.D. [facility] [address] [place] [address] Referral ID Status Reason Start Date Expiration Date Visits Requ ested Visits Authorized [id number] Closed 11/26/2019 11/25/2020 1 1 Scheduling Instructions Vertex scalp, SCCIS, ED&C Encounter Details Date Type Department Care Team Description 11/26/2019 Orders Only Department of Tres Llamas Squam ous Cell Dermatology in [place] Carcinoma In Situ [place], [place] [address] (Primary Dx) [address] [place] [address] [place], [place] [phone] (Wo rk) [id number] [phone] Social History Tobacco Use Types Packs/Day Years [...] at Date Recorded 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 [address] [place] [phone] 05/08/2022 Appointment Laboratory Medicine Angélica Granger P.A.-C. [address] [place] [phone] 05/08/2022 Clinical Admitting/Central Communication Scheduling 05/10/2022 Appointment Radiology Jeremie Rose M.D. [address] [place] [phone] 05/10/2022 Comprehensive Visit Orthopedic Surgery Warner Graves M.D. [address] [place] [phone] 05/22/2022 Appointment Laboratory Medicine Angélica Granger P.A.-C. [address] [place] [phone] 06/05/2022 Appointment Laboratory Medicine Angélica Granger P.A.-C. [address] [place] [phone] 06/19/2022 Appointment Laboratory Medicine Angélica Granger P.A.-C. [address] [place] [phone] 07/03/2022 Appointment Laboratory Medicine Angélica Granger P.A.-C. [address] [place] [phone] 07/17/2022 Appointment Laboratory Medicine Angélica Granger P.A.-C. [address] [place] [phone] 07/31/2022 Appointment Laboratory Medicine Angélica Granger P.A.-C. [address] [place] [phone] 08/14/2022 Appointment Laboratory Medicine Angélica Granger P.A.-C. [address] [place] [phone] 08/28/2022 Appointment Laboratory Medicine Angélica Granger P.A.-C. [address] [place] [phone] Scheduled Referrals Name Type Priority Associated Order Schedule Diagnoses Dermatology office Outpatient Referral Routine Squamous Cell E xpected: visit (clinic) Carcinoma In Situ 12/10/19 20 (Approximate), Expires: 11/25/2022 documented as of this encounter Visit Diagnoses Diagnosis Squamous Cell Carcinoma In Situ - Primar y documented in this encounter Additional Health Concerns Assessment Noted Time PHQ-9 Depression Total Score: 3 11/22/2019 7:34 AM CDT documented as of this encounter Care Teams Metal Machine Setter Relationship Specialty Start Date End Date Elsewhere, Pcp PCP - General Family Medicine 07/29/17 documented as of this encounter
--- OUTSIDE RECORDS SUMMARY | 2022-04-13 12:28 | XMS_ITS | Encounter Summary ---
:1955 Author Organization [facility] Address [address] [place] [address] Care Team Providers Name Role Phone Elsewhere, Pcp Primary Care Provider Unavailable Encounter Details Date Type Department Care Team Description 11/22/2019 Hospital Encounter Department of Angélica Granger ant Liver (HCC); Radiology, [place] Edmundo Stenr Medication Therapy Mcfp Not 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 Maintenance amLODIPine (NORVASC) 10 TAKE 1 TABLET BY [...] mouth Transplant Liver (HCC), daily. Medication Therapy Mcfp Not Anticoagulant tacrolimus (PROGRAF) 0.5 Take 2 [...] Laboratory Medicine Angélica Granger P.A.-CDemetrius [address] [place] [phone] 04/25/2022 Office Visit Otorhinolaryngology Dex Matta APRN, C.N.P., M.S.N. [address] [place] [phone] 05/08/2022 Appointment Laboratory Medicine Angélica Granger P.A.-CDemetrius [address] [place] [phone] 05/08/2022 Clinical Admitting/Central Communication Scheduling 05/10/2022 Appointment Radiology Jeremie Rose M.D. [address] [place] [phone] 05/10/2022 Comprehensive Visit Orthopedic Surgery Warner Graves M.D. [address] [place] [phone] 05/22/2022 Appointment Laboratory Medicine Angélica Granger P.A.-CDemetrius [address] [place] [phone] 06/05/2022 Appointment Laboratory Medicine Angélica Granger P.A.-CDemetrius [address] [place] [address] [phone] 06/19/2022 Appointment Laboratory Medicine Angélica Granger P.A.-C. [address] [place] [address] [phone] 07/03/2022 Appointment Laboratory Medicine Angélica Granger P.A.-C. [address] [place] [phone] 07/17/2022 Appointment Laboratory Medicine Angélica Granger P.A.-C. [address] [place] [phone] 07/31/2022 Appointment Laboratory Medicine Angélica Granger P.A.-C. [address] [place] [address] [phone] 08/14/2022 Appointment Laboratory Medicine Angélica Granger P.A.-C. [address] [place] [address] [phone] 08/28/2022 Appointment Laboratory Medicine Angélica Granger P.A.-C. [address] [place] [address] [phone] documented as of this encounter Procedures Procedure Name Priority Date/Time Associated Diagnosis Comme nts DX CHEST AP OR RAD - Routine 11/22/2019 7:19 Transplant Liver Resul ts for this PA AND LATERAL 2 (most inpatients AM CDT (HCC) procedure are in VIEWS and all Medication Therapy the resul ts outpatients) Button Riveter Not section. Anticoagulant documented in this encounter Results DX Chest AP or PA and Lateral 2 Views (11/22/2019 7:19 AM CDT) Anatomical Region Laterality Modality Chest, Thoracic RST LOS, Thoracic ARZ LOS, Thoracic N/A Digital Radiography FLA LOS Specimen (Source) Anatomical Collection Method Collection Time Re ceived Time Location / / Volume Laterality 11/22/2019 8:14 AM CDT Impressions 11/22/2019 8:16 AM CDT Bilateral nipple shadows. Chest otherwise negative. Surgical clips right upper quadrant. No change since . Narrative 11/22/2019 8:16 AM CDT EXAM: ??DX CHEST AP OR PA AND LATERAL 2 VIEWS Procedure Note Alan Jang M.D. - 11/22/2019Fo rmatting of this note might be different from the original. EXAM: DX CHEST AP OR PA AND LATERAL 2 EWS IMPRESSION: Bilateral nipple shadows. Chest otherwis e negative. Surgical clips right upper quadrant. No change since . Angélica [facility] DAREN RAMIRES documented in this encounter Visit Diagnoses Diagnosis Transplant Liver (HCC) Medication Therapy Button Riveter Not Anticoa gulant documented in this encounter Additional Health Concerns Assessment Noted Time PHQ-9 Depression Total Score: 3 11/22/2019 7:34 AM CDT documented as of this encounter Care Teams Cement Tester Assistant Relationship Specialty Start Date End Date Elsewhere, Pcp PCP - General Family Medicine 07/29/17 documented as of this encounter
--- OUTSIDE RECORDS SUMMARY | 2022-04-13 12:28 | XMS_ITS | Encounter Summary ---
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 [address] [place] [phone] 04/25/2022 Office Visit Otorhinolaryngology Dex Matta APRN, C.N.P., M.S.N. [address] [place] [phone] 05/08/2022 Appointment Laboratory Medicine Angélica Granger P.A.-C. [address] [place] [phone] 05/08/2022 Clinical Admitting/Central Communication Scheduling 05/10/2022 Appointment Radiology Jeremie Rose M.D. [address] [place] [phone] 05/10/2022 Comprehensive Visit Orthopedic Surgery Warner Graves M.D. [address] [place] [phone] 05/22/2022 Appointment Laboratory Medicine Angélica Granger P.A.-C. [address] [place] [address] [phone] 06/05/2022 Appointment Laboratory Medicine Angélica Granger P.A.-C. [address] [place] [address] [phone] 06/19/2022 Appointment Laboratory Medicine Angélica Granger P.A.-C. [address] [place] [phone] 07/03/2022 Appointment Laboratory Medicine Angélica Granger P.A.-C. [address] [place] [phone] 07/17/2022 Appointment Laboratory Medicine Angélica Granger P.A.-C. [address] [place] [phone] 07/31/2022 Appointment Laboratory Medicine Angélica Granger P.A.-C. [address] [place] [phone] 08/14/2022 Appointment Laboratory Medicine Angélica Granger P.A.-C. [address] [place] [phone] 08/28/2022 Appointment Laboratory Medicine Angélica Granger P.A.-C. [address] [place] [phone] documented as of this encounter Procedures Procedure Name Priority Date/Time Associated Comments Diagnosis DERMATOLOGY IMAGE Routine 11/23/2019 9:37 AM Resu lts for this EXAM CDT procedure are i n the results section. documented in this encounter Results scalp, left occipital/parietal 1 Shave biopsy-Dermatology Image Exam (11/23/2019 9:37 AM CDT) Specimen (Source) Anatomical Collection Method Collection Time Re ceived Time Location / / Volume Laterality 11/23/2019 12:00 PM CDT Narrative [facility] - 11/23/2019 9:37 AM CDT This order has been created [...] documented as of this encounter Care Teams Housekeeping Department Worker Relationship Specialty Start Date End Date Elsewhere, Pcp PCP - General Family Medicine 07/29/17 documented as of this encounter
--- OUTSIDE RECORDS SUMMARY | 2022-04-13 12:28 | XMS_ITS | Encounter Summary ---
:1955 Author Organization [facility] Address [address] [place] [address] Care Team Providers Name Role Phone Elsewhere, Pcp Primary Care Provider Unavailable Reason for Referral MRI/CAT/PET Scan (Routine) - Closed Specialty Diagnoses / Procedures Referred By Contact Refer red To Contact Radiology Diagnoses Cough Unspecified Type Angélica Granger P.A.-C. [facility] Procedures CT Chest without IV Contrast [address] [place] [phone] Referral ID Status Reason Start Date Expiration Date Visits Requ ested Visits Authorized [id number] Closed 11/22/2019 11/21/2020 1 1 Reason for Visit MRI/CAT/PET Scan (Routine) - Closed Specialty Diagnoses / Procedures Referred By Contact Refer red To Contact Radiology Diagnoses Cough Unspecified Type Angélica Granger P.A.-C. 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 Medication Therapy Rug Dyer Not Anticoagulant tacrolimus (PROGRAF) 0.5 Take 2 capsules (1 360 capsule 3 07/20/2020 mg capsuleIndications: mg total) by mouth Transplant Liver ([facility]), 2 (two) times a Medication Therapy Long [...] Laboratory Medicine Angélica Granger P.A.-CDemetrius [address] [place] [phone] 04/25/2022 Office Visit Otorhinolaryngology Dex Matta APRN, C.N.P., M.S.N. [address] [place] [phone] 05/08/2022 Appointment Laboratory Medicine Angélica Granger P.A.-C. [address] [place] [phone] 05/08/2022 Clinical Admitting/Central Communication Scheduling 05/10/2022 Appointment Radiology Jeremie Rose M.D. [address] [place] [phone] 05/10/2022 Comprehensive Visit Orthopedic Surgery Warner Graves M.D. [address] [place] [phone] 05/22/2022 Appointment Laboratory Medicine Angélica Granger P.A.-C. [address] [place] [phone] 06/05/2022 Appointment Laboratory Medicine Angélica Granger P.A.-C. [address] [place] [phone] 06/19/2022 Appointment Laboratory Medicine Angélica Granger P.A.-C. [address] [place] [phone] 07/03/2022 Appointment Laboratory Medicine Angélica Granger P.A.-C. [address] [place] [phone] 07/17/2022 Appointment Laboratory Medicine Angélica Granger P.A.-C. [address] [place] [phone] 07/31/2022 Appointment Laboratory Medicine Angélica Granger P.A.-C. [address] [place] [phone] 08/14/2022 Appointment Laboratory Medicine Angélica Granger P.A.-C. [address] [place] [phone] 08/28/2022 Appointment Laboratory Medicine EmilieAngélica wilcox Jennifer Stern. [address] [place] [phone] documented as of this encounter Procedures Procedure Name Priority Date/Time Associated Comments Diagnosis CT CHEST WITHOUT RAD - Routine 11/23/2019 9:53 Cough Results for this IV CONTRAST (most inpatients AM CDT procedure a re in and all the results outpatients) section. documented in this encounter Results CT Chest without IV Contrast (11/23/2019 9:53 AM CDT) Anatomical Region Laterality Modality Chest, Thoracic RST LOS, Thoracic ARZ N/A Co mputed Tomography, Computed LOS, Thoracic FLA LOS Tomography Specimen (Source) Anatomical Collection Method Collection Time Re ceived Time Location / / Volume Laterality 11/23/2019 9:54 AM CDT Impressions 11/23/2019 10:48 AM CDT Bronchial wall thickening with endobronchial plugging, greatest in the middle and lower lobes, with tree-in-bud opacit ies greater in the left lung base compatible with a multifocal infectious process. Narrative 11/23/2019 10:48 AM CDT EXAM: CT CHEST WITHOUT IV CONTRAST COMPARISON: Chest radiographs 11/22/2019 , chest CT 11/27/2010 and 04/04/1999 FINDINGS: Diffuse bronchial wall thickening and en dobronchial plugging, greatest in the middle and lower lobes. Tree-in-bud opac ities in the left greater than right lung base in the anterior right middle l obe. Slight consolidation in the medial left lung base. Calcified granulomas rig ht lung base. No thoracic lymphadenopathy. Dense coron marimar artery calcifications. Asymmetric, left greater than right gynecomastia. De generative changes upper thoracic spine. Limited evaluation of the upper abdomen. Mild splenomegaly. Upper abdominal varices. Probable atrophy of the right k idney with presumed cyst. The kidneys are only partially imaged. Partially vis ualized postoperative changes liver transplantation. Procedure Note Santana Kurtz M.D., Ph.D. - 11/23/2019 EXAM: CT CHEST WITHOUT IV CONTRAST COMPARISON: Chest radiographs 11/22/2019 , chest CT 11/27/2010 and 04/04/1999 FINDINGS: Diffuse bronchial wall thickening and en dobronchial plugging, greatest in the middle and lower lobes. Tree-in-bud opac ities in the left greater than right lung base in the anterior right middle l obe. Slight consolidation in the medial left lung base. Calcified granulomas rig ht lung base. No thoracic lymphadenopathy. Dense coron marimar artery calcifications. Asymmetric, left greater than right gynecomastia. De generative changes upper thoracic spine. Limited evaluation of the upper abdomen. Mild splenomegaly. Upper abdominal varices. Probable atrophy of the right k idney with presumed cyst. The kidneys are only partially imaged. Partially vis ualized postoperative changes liver transplantation. IMPRESSION: Bronchial wall thickening with endobronc hial plugging, greatest in the middle and lower lobes, with tree-in-bud opacit ies greater in the left lung base compatible with a multifocal infectious process. Angélica HEREDIA CT PROCEDURES documented in this encounter Visit Diagnoses Diagnosis Cough Unspecified Type documented in this encounter Additional Health Concerns Assessment Noted Time PHQ-9 Depression Total Score: 3 11/22/2019 7:34 AM CDT documented as of this encounter Care Teams Juvenile Detention Officer Relationship Specialty Start Date End Date Elsewhere, Pcp PCP - General Family Medicine 07/29/17 documented as of this encounter
--- OUTSIDE RECORDS SUMMARY | 2022-04-13 12:28 | XMS_ITS | Encounter Summary ---
:1955 Author Organization [facility] Address [address] [place] [address] Care Team Providers Name Role Phone Elsewhere, Pcp Primary Care Provider Unavailable Reason for Visit Transplant (Routine) - Closed Specialty Diagnoses / Procedures Referred By Contact Refer red To Contact Transplant Surgery / Diagnoses Transplant Liver (HCC) Medication Therapy Bottom Cager Not Anticoagulant Angélica Granger, Lorena [facility] Transplant P.A.-C. [address] [place] [phone] Referral ID Status Reason Start Date Expiration Date Visits Requ ested Visits Authorized [id number] Closed 06/21/2019 06/20/2020 1 1 Encounter Details Date Type Department Care Team Description 11/23/2019 Comprehensive Visit Department of Winifred Llamas S kin Uncertain Behavior (Primary Dx); Dermatology in [place], Transplant Liver (HCC); Sada Santamaria Medication Therapy [facility] Not Anticoa gulant; [place] [address] Keratosis Seborrheic; [address] [place] [address] Keratosis Actinic; [place] [address] Angioma Rangel; [phone] Dermatoheliosis Social History Tobacco Use Types Packs/Day Years [...] at Date Recorded 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 - 11/23/2019 8:00 AM CDT Shave biopy was performed as ordered and outlined by Dr. Janette Llamas ([phone]) in the clinical note dated with today's date. documented in this encounter Consult Notes Kurtis Montana M.D. - 11/23/2019 8:00 AM CDT PATIENT DEMOGRAPHICS Clinic Number: [id number] Patient Name: Mr.. Bruce Singh Age: 64 y.o. Sex: male Birthdate: 1955 Service: DERM REFERRED BY Angélica Granger P.A.-C. CORRESPONDENCE TO : Tres Hill MD CHIEF COMPLAINT Three of liver transplant on chronic immunosuppression Lesion vertex Patient seen and discussed with supervising senior information security consultant, Tres Hill MD, who evaluated thepatient and concurs with the assessment and plan. HISTORY OF PRESENT ILLNESS Mr. Bruce Singh is a 64 y.o. male with a history of liver transplantation in 1998 and retransplant in 2012 on chronic immunosuppression with CellCept, prednisone and tacrolimus presents today for follow-up. Patient was last seen in the Dermatology Clinic in August 2018. No concerning features were noted at that time. Patient denies any personal history of skin cancer. Patient today is concernedabout a lesion on the vertex. He reports that this lesion was treated with cryotherapy few times in the past. He continues to have persistent scaling over this site. He denies bleeding or itching over this lesion. He otherwise denies any other skin concerns today. He tries to use sunscreen and sun prot ective measures regularly. PAST MEDICAL HISTORY As per HPI OBJECTIVE PHYSICAL EXAM General: Alert, in no acute distress. Patient has normal mood and affect Eyes: No conjunctival congestion or scleral icterus noted Respiratory system: Normal work of breathing in room air Skin: Examination of the scalp, face, neck, chest, abdomen, back, upper and lower extremities including digits and toes was performed today. Concerning lesion on the vertex was examined which revealed mildly erythematous scaly papule of size approximately 4 mm. Scattered on the trunk and extremities are several waxy keratotic hyperpigmented stuck on papules and plaques. Significant dermatoheliosis noted on the face trunk and extremities. Noted on the right mandaen is a scaly and gritty plaque of sizeapproximately 3 mm. Rangel angioma seen scattered on the trunk and extremity. Several hyperpigmentedmacules of varying size, uniform color and pigmentation seen scattered on the trunk and extremity. Several of these were examined under the dermoscopy revealing benign morphology. ASSESSMENT AND PLAN #1 Dermatoheliosis #2 History of liver transplant on chronic immunosuppression Sun protection and sun avoidance were reviewed with the patient. Educational materials were providedregarding skin self-examination, the warning signs and symptoms of skin cancer, and the proper use of sunscreens. I would recommend a full skin cancer screening examination with an appropriately trained clinician annually. #3 Tumor of uncertain significance, vertex - performed shave biopsy for histopathology to rule out squamous cell carcinoma CONSENT Discussed the risks, benefits, alternatives, and [...] a shave biopsy was obtained from the vertex. Biopsy submitted to Dermatopathology for H&E. Special stains will be performed as indicated. The bleeding was well c ontrolled with application of aluminum chloride. Dressing was applied, and wound care instructions were explained. Biopsy results and any further recommendations will be communicated to the patient by letter. Patient given pamphlet [id number]. #4 Actinic keratoses times 1 Given the precancerous nature of this lesion(s), [...] should return for biopsy or further evaluation. Discussed the risks, benefits, alternatives, and the necessity of other members ofthe healthcare team participating in the procedure. All questions answered and consent given. #5 Seborrheic keratosis #6 Rangel angioma The benign nature of the skin lesion(s) was discussed with the patient. No treatment is required at this time. I recommend continued observation. Should symptoms or changes develop related to this condition, I would recommend a return visit for reassessment. Patient education Ready to learn, no apparent learning barriers were identified; learning preferences include listening. Explained diagnosis and treatment plan; patient/guardian of patient expressed understanding of thecontent. Associated attestation - Tres Llamas M.D. - 11/23/2019 2:14 PM CDT I saw and evaluated the patient, participating in the garcia elements of the service. I discussed the findings, assessment and plan with the resident/fellow and agree with resident/fellow???s findings andplan as documented in the resident/fellow's note. I was immediately available for the entirety of the procedure(s) and present for the garcia and critical portions. Mr. Singh is here for follow-up, with history of chronic immunosuppression from liver transplantation. He has a persistent lesion on the vertex scalp, which has failed cryotherapy. It is still most consistent with an actinic keratosis, though a biopsy was performed to investigate for the possibility of squamous cell carcinoma or other non melanoma skin cancer. No head or neck adenopathy. An actinic keratosis was treated with cryotherapy. Skin cancer education provided prior to departure. Depending on results of biopsy, additional action may be indicated. Additional details may be found the separate note of . documented in this encounter Plan of Treatment Upcoming Encounters Date Type Specialty Care Team Description 04/24/2022 Appointment Laboratory Medicine Angélica Granger P.A.-C. [address] [place] [phone] 04/25/2022 Office Visit Otorhinolaryngology Dex Matta, RAMONA, C.N.P., M.S.N. [address] [place] [phone] 05/08/2022 Appointment Laboratory Medicine Angélica Granger P.A.-C. [address] [place] [phone] 05/08/2022 Clinical Admitting/Central Communication Scheduling 05/10/2022 Appointment Radiology Jeremie Rose M.D. [address] [place] [phone] 05/10/2022 Comprehensive Visit Orthopedic Surgery Warner Graves M.D. [address] [place] [phone] 05/22/2022 Appointment Laboratory Medicine Angélica Granger P.A.-C. [address] [place] [phone] 06/05/2022 Appointment Laboratory Medicine Angélica Granger P.A.-C. [address] [place] [phone] 06/19/2022 Appointment Laboratory Medicine Angélica Granger P.A.-C. [address] [place] [phone] 07/03/2022 Appointment Laboratory Medicine Angélica Granger P.A.-C. [address] [place] [phone] 07/17/2022 Appointment Laboratory Medicine Angélica Granger P.A.-C. [address] [place] [phone] 07/31/2022 Appointment Laboratory Medicine Angélica Granger P.A.-C. [address] [place] [phone] 08/14/2022 Appointment Laboratory Medicine Angélica Granger P.A.-C. [address] [place] [phone] 08/28/2022 Appointment Laboratory Medicine Angélica Granger P.A.-C. [address] [place] [phone] documented as of this encounter Procedures Procedure Name Priority Date/Time Associated Diagnosis Comme [facility] DERMATOPATHOLOGY Routine 11/23/2019 8:22 AM Transplant L iver (HCC) Results for this CDT Medication Therapy procedure are in [facility] Not the results Anticoagulant section. documented in this encounter Results Dermatopathology (11/23/2019 8:22 AM CDT) Component Value Ref Test Analysis Performed At [facility] gist Range Method Time Signature 11/25/2019 [facility] 11:00 AM CDT Participated in Jessika Moctezuma 11/25/2019 [facility] the Interpretation Ramiro, 11:00 AM Sada-Patholog CDT y Fellow Report Leonid Rene 11/25/2019 [facility] electronically Jaimee, 11:00 AM signed by Sada ROBINS Gross Description Received in formalin labeled with the patient's n gonzalez, 11/25/2019 [facility] medical record number, and vertex scalp is a 0.6 x 0.6 x 11:00 AM 0.1 cm pale grady skin shave biopsy. ??Centrally located on CDT the skin surface is a slightly raised 0.3 x 0.2 cm grady-red, ulcerated lesion with irregular borders. ??The specimen is bisected and submitted entirely in cassette A1. Grossed by MAHOGANY. Interpretation FINAL DIAGNOSIS 11/25/2019 [facility] A. 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 Tres Llamas M.D. LAB PATH DERM ORDERABLES Performing Organization Address City/State/ZIP Code Phon e Number [facility] - [address] [place], [place] [address] [place] [address] [facility] [address] documented in this encounter Visit Diagnoses Diagnosis Tumor Skin Uncertain Behavior - Primary Transplant Liver (HCC) Medication Therapy [facility] Not Anticoa gulant Keratosis Seborrheic Keratosis Actinic Angioma Rangel Dermatoheliosis documented in this encounter Additional Health Concerns Assessment Noted Time PHQ-9 Depression Total Score: 3 11/22/2019 7:34 AM CDT documented as of this encounter Care Teams Hansard Reporter Relationship Specialty Start Date End Date Elsewhere, Pcp PCP - General Family Medicine 07/29/17 documented as of this encounter
--- OUTSIDE RECORDS SUMMARY | 2022-04-13 12:28 | XMS_ITS | Encounter Summary ---
:1955 Author Organization [facility] Address [address] [place] [address] Care Team Providers Name Role Phone Elsewhere, Pcp Primary Care Provider Unavailable Encounter Details Date Type Department Care Team Description 11/19/2019 Clinical Communication Angélica Ching [place] for J, P.A.-C. 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 Do you have a pending COVID test because you had symptoms or exposure to someone with COVID or you have tested positive for COVID in the last 30 days? no 2. In the past 14 days, do you, anyone in the household, or anyone you have had prolonged exposure have any of the following? a. Fever = 38.0 C (100.5 F) lasting 24 hours? no b. New symptoms (Specifically: headache, cough, shortness of breath, respiratory distress, sore throat, diarrhea, nausea, vomiting, chills and repeated shaking with chills, myalgia's (muscle aches), loss of smell, or change or loss of taste sensation)? no c. Had close contact with a patient with known or possible COVID-19 in the last 14 days? no Route reply to: Scheduling Contact Number: {Dept Phone Number documented in this encounter Plan of Treatment Upcoming Encounters Date Type Specialty Care Team Description 04/24/2022 Appointment Laboratory Medicine Angélica Granger P.A.-C. [address] [place] [phone] 04/25/2022 Office Visit Otorhinolaryngology Dex Matta APRN CDemetriusNJuan Miguel, M.S.N. [address] [place] [phone] 05/08/2022 Appointment Laboratory Medicine Angélica Granger P.A.-C. [address] [place] [phone] 05/08/2022 Clinical Admitting/Central Communication Scheduling 05/10/2022 Appointment Radiology Jeremie Rose M.D. [address] [place] [phone] 05/10/2022 Comprehensive Visit Orthopedic Surgery Warner Graves M.D. [address] [place] [phone] 05/22/2022 Appointment Laboratory Medicine Angélica Granger P.A.-C. [address] [place] [phone] 06/05/2022 Appointment Laboratory Medicine Angélica Granger P.A.-C. [address] [place] [phone] 06/19/2022 Appointment Laboratory Medicine Angélica Granger P.A.-C. [address] [place] [phone] 07/03/2022 Appointment Laboratory Medicine Angélica Granger P.A.-C. [address] [place] [phone] 07/17/2022 Appointment Laboratory Medicine Angélica Granger P.A.-C. [address] [place] [phone] 07/31/2022 Appointment Laboratory Medicine Angélica Granger P.A.-C. [address] [place] [phone] 08/14/2022 Appointment Laboratory Medicine Angélica Granger P.A.-C. [address] [place] [phone] 08/28/2022 Appointment Laboratory Medicine Angélica Granger P.A.-C. [address] [place] [phone] documented as of this encounter Visit Diagnoses Not on filedocumented in this encounter Additional Health Concerns Assessment Noted Time PHQ-9 Depression Total Score: 5 03/02/2019 10:51 AM CD T documented as of this encounter Care Teams Electrician Constructor Supervisor Relationship Specialty Start Date End Date Elsewhere, Pcp PCP - General Family Medicine 07/29/17 documented as of this encounter
--- OUTSIDE RECORDS SUMMARY | 2022-04-13 12:28 | XMS_ITS | Encounter Summary ---
:1955 Author Organization [facility] Address [address] [place] [address] Care Team Providers Name Role Phone Elsewhere, Pcp Primary Care Provider Unavailable Reason for Referral MRI/CAT/PET Scan (Routine) - Closed Specialty Diagnoses / Procedures Referred By Contact Refer red To Contact Radiology Diagnoses Cough Unspecified Type Angélica Granger P.A.-C. [facility] Procedures CT Chest without IV Contrast [address] [place] [phone] Referral ID Status Reason Start Date Expiration Date Visits Requ ested Visits Authorized [id number] Closed 11/22/2019 11/21/2020 1 1 Encounter Details Date Type Department Care Team Description 11/22/2019 Orders Only [facility] Michele Granger Cough for Transplantation and Edmundo Clinical Regeneration in [address] [place] [address] [place] [phone] [place] [phone] Social History Tobacco Use Types Packs/Day Years [...] at Date Recorded 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 [address] [place] [phone] 05/08/2022 Appointment Laboratory Medicine Angélica Granger P.A.-C. [address] [place] [phone] 05/08/2022 Clinical Admitting/Central Communication Scheduling 05/10/2022 Appointment Radiology Jeremie Rose M.D. [address] [place] [phone] 05/10/2022 Comprehensive Visit Orthopedic Surgery Warenr Graves M.D. [address] [place] [phone] 05/22/2022 Appointment Laboratory Medicine Angélica Granger P.A.-C. [address] [place] [phone] 06/05/2022 Appointment Laboratory Medicine Angélica Granger P.A.-C. [address] [place] [phone] 06/19/2022 Appointment Laboratory Medicine Angélica Granger P.A.-C. [address] [place] [phone] 07/03/2022 Appointment Laboratory Medicine Angélica Granger P.A.-C. [address] [place] [phone] 07/17/2022 Appointment Laboratory Medicine Angélica Granger P.A.-C. [address] [place] [phone] 07/31/2022 Appointment Laboratory Medicine Angélica Granger P.A.-C. [address] [place] [phone] 08/14/2022 Appointment Laboratory Medicine Angélica Granger P.A.-C. [address] [place] [phone] 08/28/2022 Appointment Laboratory Medicine EmilieAngélica wilcox Jennifer Stern. [address] [place] [phone] documented as of this encounter Results CT [...] compatible with a multifocal infectious process. Angélica Granger P.A.-C. IMAutumn CT PROCEDURES documented in this encounter Visit Diagnoses Diagnosis Cough Unspecified Type Cough Unspecified Type documented in this encounter Additional Health Concerns Assessment Noted Time PHQ-9 Depression Total Score: 3 11/22/2019 7:34 AM CDT documented as of this encounter Care Teams Ice Bag Assembler Relationship Specialty Start Date End Date Elsewhere, Pcp PCP - General Family Medicine 07/29/17 documented as of this encounter
--- OUTSIDE RECORDS SUMMARY | 2022-04-13 12:28 | XMS_ITS | Encounter Summary ---
:1955 Author Organization [facility] Address [address] [place] [address] Care Team Providers Name Role Phone Elsewhere, Pcp Primary Care Provider Unavailable Reason for Referral Outpatient (Routine) - Closed Specialty Diagnoses / Procedures Referred By Contact Refer red To Contact Pulmonary Medicine Diagnoses Transplant Liver (HCC) Angélica Granger [facility]CD[facility] [address] [place] [phone] Referral ID Status Reason Start Date Expiration Date Visits V isits Requested Authorized [id number] Closed Specialty 11/23/2019 11/22/2020 1 1 Services Required Scheduling Instructions With Dr. 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 [address] [place] [phone] Referral ID Status Reason Start Date Expiration Date Visits Requ ested Visits Authorized [id number] Closed 06/21/2019 06/20/2020 1 1 Encounter Details Date Type Department Care Team Description 11/22/2019 Office Visit Angélica Ching After care Transplant Liver (HCC) (Primary Dx); [facility] Yanely SternC. 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 - 11/22/2019 3:00 PM CDT SUBJECTIVE CHIEF COMPLAINT/REASON FOR VISIT Annual eval following liver transplantation. Supervised by Dr. Gonzalez. HISTORY OF PRESENT ILLNESS Mr. 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 With the 2nd allograft, he developed portal vein obstruction as well as umbilical hernia repair. Other ongoing issues have included hyperlipidemia, hyperglycemia, hypertension, hypothyroidism, and chronic renal insufficiency--stage 4, listed for kidney transplant. He has been followed closely by Dr. Chau and Dr. Bowman. His kidney function is stable. He was seen here recently with no significant changes. Hepatic allograft Doing well with normal biochemistries and synthetic function. AST 23, ALT 27, bilirubin is 0.4, and albumin is 3.9. Ultrasound shows no significant concerns, overall stable. Immunosuppression Maintained on Prograf 4 mg twice a day, current level 1.7. Levels run around 2 consistently. He is also maintained on prednisone 5 mg daily and CellCept 500 mg twice a day. We continue to run his Prograf levels on the lower side to help with his chronic renal insufficiency. Chronic kidney disease, stage 4, seen by Dr. Chau The plan is to activate him for kidney transplant when his GFR is below 20. He does have known bilateral renal artery stenosis. The left side has been stented. He has good blood pressure control. Electrolytes are normal. Hemoglobin 10.1. Hypothyroidism TSH 6.1, and he takes his Synthroid with other food. We talked about taking this on an empty stomachat night. I recommend rechecking his TSH in 3-6 months. Cough Patient has had a cough for approximately 3 months. He feels like it has gotten worse in the last month. He has had a lot of postnasal drainage also and has been using Flonase and Claritin. Oxygen saturation is normal. He has been afebrile and does not feel ill otherwise. 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 OBJECTIVE PHYSICAL EXAMINATION General: Pleasant-appearing male, no acute distress. HEENT: Pupils are equal, reactive, nonicteric. Mouth, no erythema or exudates. Neck: Thyroid negative. Lungs: Increased breath sounds with crackles and some rhonchi at the left base. Right is increased breath sounds but otherwise clear. Rest of the exam is negative. Heart: Regular rate and rhythm. Abdomen: He has a small umbilical hernia, reducible, nontender 2 x 2 cm, and a vertical incision. Nohepatosplenomegaly. No guarding. Extremities: No edema. Neuropsych: He has very mild tremor. He is oriented x3. Mood and affect normal. ASSESSMENT / PLAN #1 Mr. 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 Ultrasound shows no concerns or changes. Will continue to follow labs per protocol. Immunosuppression maintained on Prograf 1 mg twice a day, current level 1.7. Levels run around 2 on average. He is also maintained on prednisone at 5 mg daily and CellCept 500 mg twice a day. We will continue with his current immunosuppression regimen. #2 Chronic kidney disease stage [address] Chau. Overall, things have been stable. Clearance is stable. His creatinine continues to run between 2.3 and 3.0. He has minimal microalbuminuria. He does have known bilateral renal artery stenosis, the left side has been stented. He will continue to follow closely with Nephrology. #3 Blood pressure Well controlled on current therapy. #4 Hypothyroidism TSH is 6.1, previously 4.1. He will take his Synthroid on an empty stomach at night. Will recheck this in 3-6 months. #5 History of bipolar disorder with michell, controlled Seen by Dr. Louis. Stable, doing well. Continue on Lamictal. Follow up in 1 year. #6 History of side-branch IPMN, unchanged on ultrasound Continue to follow. #7 Cough This has been present approximately 3 months. Seems a little worse the last month. On exam he does have increased breath sounds, rhonchi, and crackles at the left base. His oxygen saturation is normal at 99%. Reviewed with Dr. Gonzalez. Will proceed with a CT scan of the chest. I will follow up and make further recommendations. He remains afebrile. I discussed COVID screening with Dr. Gonzalez. He would like to proceed with a CT scan of the chest at this time. Patient has no other symptoms for COVID, and his symptoms have been present for 3 months. His main complaint is postnasal drip with this cough. PREVENTATIVE SERVICES AND OTHER STUDIES: His cholesterol is 135 and LDL 64, triglycerides are 182. He states he does eat a significant amountof sweets and will improve his dietary habits. Electrolytes are normal. Ferritin is normal at 84. PSA is 0.40. He has no other questions or concerns regarding his health. We talked about ongoing prevention of COVID. PLAN: Will proceed as above with testing. Will get a CT scan of the chest. I will follow up on the resultsand contact the patient. He will call with any questions or concerns. No staff note to follow. E4. Angélica Granger P.A.-C. CT CT Job ID: [id number] documented in this encounter H&P Notes Angélica Granger P.A.-C. - 11/22/2019 3:00 PM CDT SUBJECTIVE CHIEF COMPLAINT/REASON FOR VISIT Review with Dr. Simon and discussion of overall plan. HISTORY OF PRESENT ILLNESS Mr. Singh had contacted his nurse coordinator that he feels the prednisone and albuterol did not help much. Dr. Simon had reviewed his case in further detail, and at this time recommends a trial of an antibiotic. Again, he had a recent chest x-ray and a CT scan showing some tree-budding question ofinfection. The patient has remained afebrile. ASSESSMENT / PLAN Dr. Simon feels Levaquin would be the best option at this time to try for 5 days. If his symptoms do not improve, he would recommend proceeding with a bronchoscopy. The patient would require COVID testing prior to this. Patient's history is notable for an allergy to Cipro and had tendon pain. I reviewed this with the patient, and he states he was on chronic Cipro before his 2nd transplant because of biliary infections and does remember having some joint pain and possible tendon pain. He had no rupture or other concerns for a rupture, but had used long-term Cipro. I reviewed his situation with our transplant pharmacist, Flaquita Lopez. At this time, they feel it is okay to proceed with a 5-day course of Levaquin for his current suspected infection. I reviewed to observe for any joint pain or tendon pain while taking the Levaquin and to take it easy while he is taking his medication, and he will call with any questions or concerns. He also understands the risk/benefit of these medications and hasagreed to proceed with the antibiotic. Of note, his medication list trazodone. Patient is not takingthis medication at this time and only uses it p.r.n.. He will not take this medication during the use of Levaquin. At this time, we will proceed with Levaquin for 5 days and if his symptoms do not impro ve, he will need COVID testing and be set up for a bronchoscopy with samples. All questions answered. No charge. Angélica Granger P.A.-C. CT CT Job ID: [id number] documented in this encounter Plan of Treatment Upcoming Encounters Date Type Specialty Care Team Description 04/24/2022 Appointment Laboratory Medicine Angélica Granger P.A.-C. [address] [place] [phone] 04/25/2022 Office Visit Otorhinolaryngology Dex Matta APRN, C.N.P., M.S.N. [address] [place] [phone] 05/08/2022 Appointment Laboratory Medicine Angélica Granger P.A.-C. [address] [place] [phone] 05/08/2022 Clinical Admitting/Central Communication Scheduling 05/10/2022 Appointment Radiology Jeremie Rose M.D. [address] [place] [phone] 05/10/2022 Comprehensive Visit Orthopedic Surgery Warner Graves M.D. [address] [place] [phone] 05/22/2022 Appointment Laboratory Medicine Angélica Granger P.A.-C. [address] [place] [phone] 06/05/2022 Appointment Laboratory Medicine Angélica Granger P.A.-C. [address] [place] [phone] 06/19/2022 Appointment Laboratory Medicine Angélica Granger P.A.-C. [address] [place] [phone] 07/03/2022 Appointment Laboratory Medicine Angélica Granger P.A.-C. [address] [place] [phone] 07/17/2022 Appointment Laboratory Medicine Angélica Granger P.A.-C. [address] [place] [phone] 07/31/2022 Appointment Laboratory Medicine Angélica Granger P.A.-C. [address] [place] [phone] 08/14/2022 Appointment Laboratory Medicine Angélica Granger P.A.-C. [address] [place] [phone] 08/28/2022 Appointment Laboratory Medicine Angélica Granger P.A.-C. 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
--- OUTSIDE RECORDS SUMMARY | 2022-04-13 12:28 | XMS_ITS | Encounter Summary ---
:1955 Author Organization [facility] Address [address] [place] [address] Care Team Providers Name Role Phone Elsewhere, Pcp Primary Care Provider Unavailable Encounter Details Date Type Department Care Team Description 11/23/2019 Clinical Communication [place] 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 [address] [place] [phone] 04/25/2022 Office Visit Otorhinolaryngology Dex Matta APRN, C.N.P., M.S.N. [address] [place] [phone] 05/08/2022 Appointment Laboratory Medicine Angélica Granger P.A.-CDemetrius [address] [place] [phone] 05/08/2022 Clinical Admitting/Central Communication Scheduling 05/10/2022 Appointment Radiology Jeremie Rose M.D. [address] [place] [phone] 05/10/2022 Comprehensive Visit Orthopedic Surgery Warner Graves M.D. [address] [place] [phone] 05/22/2022 Appointment Laboratory Medicine Angélica Granger P.A.-C. [address] [place] [phone] 06/05/2022 Appointment Laboratory Medicine Angélica Granger P.A.-C. [address] [place] [phone] 06/19/2022 Appointment Laboratory Medicine Angélica Granger P.A.-C. [address] [place] [phone] 07/03/2022 Appointment Laboratory Medicine Angélica Granger P.A.-C. [address] [place] [phone] 07/17/2022 Appointment Laboratory Medicine Angélica Granger P.A.-C. [address] [place] [phone] 07/31/2022 Appointment Laboratory Medicine Angélica Granger P.A.-C. [address] [place] [phone] 08/14/2022 Appointment Laboratory Angélica Royal P.A.-C. [address] [place] [phone] 08/28/2022 Appointment Laboratory Angélica Royal P.A.-C. [address] [place] [phone] documented as of this encounter Visit Diagnoses Not on filedocumented in this encounter Additional Health Concerns Assessment Noted Time PHQ-9 Depression Total Score: 3 11/22/2019 7:34 AM CDT documented as of this encounter Care Teams Industrial Economist Relationship Specialty Start Date End Date Elsewhere, Pcp PCP - General Family Medicine 07/29/17 documented as of this encounter
--- OUTSIDE RECORDS SUMMARY | 2022-04-13 12:28 | XMS_ITS | Encounter Summary ---
:1955 Author Organization [facility] Address [address] [place] [address] Care Team Providers Name Role Phone Elsewhere, Pcp Primary Care Provider Unavailable Encounter Details Date Type Department Care Team Description 11/22/2019 Hospital Encounter Department of Angélica Granger ant Liver (HCC); Radiology, [facility]d Stern P.A.-C. 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 Medication Therapy [facility] Not Anticoagulant tacrolimus (PROGRAF) 0.5 Take 2 [...] Laboratory Medicine Angélica Granger P.A.-CDemetrius [address] [place] [phone] 04/25/2022 Office Visit Otorhinolaryngology Dex Matta APRN, C.N.P., M.S.N. [address] [place] [phone] 05/08/2022 Appointment Laboratory Medicine Angélica Granger P.A.-CDemetrius [address] [place] [phone] 05/08/2022 Clinical Admitting/Central Communication Scheduling 05/10/2022 Appointment Radiology Jeremie Rose M.D. [address] [place] [phone] 05/10/2022 Comprehensive Visit Orthopedic Surgery Warner Graves M.D. [address] [place] [phone] 05/22/2022 Appointment Laboratory Medicine Angélica Granger P.A.-CDemetrius [address] [place] [phone] 06/05/2022 Appointment Laboratory Medicine Angélica Granger P.A.-CDemetrius [address] [place] [phone] 06/19/2022 Appointment Laboratory Medicine Angélica Granger P.A.-C. [address] [place] [phone] 07/03/2022 Appointment Laboratory Medicine Angélica Granger P.A.-C. [address] [place] [phone] 07/17/2022 Appointment Laboratory Medicine Angélica Granger P.A.-C. [address] [place] [phone] 07/31/2022 Appointment Laboratory Medicine Angélica Granger P.A.-C. [address] [place] [phone] 08/14/2022 Appointment Laboratory Medicine Angélica Granger P.A.-C. [address] [place] [phone] 08/28/2022 Appointment Laboratory Medicine Angélica Granger P.A.-C. [address] [place] [phone] documented as of this encounter Procedures Procedure Name Priority Date/Time Associated Diagnosis Comme nts US LIVER RAD - Routine 11/22/2019 9:52 Transplant Liver Results for TRANSPLANT (most inpatients AM CDT (HCC) this procedure and all Medication Therapy are in th e outpatients) Fundraising Director Not results Anticoagulant section. documented in this encounter Results US Liver Transplant (11/22/2019 9:52 AM CDT) Anatomical Region Laterality Modality Abdomen, Ultrasound RST LOS, Ultrasound ARZ LOS, Ultrasound FLA N/A Ultrasound LOS Specimen (Source) Anatomical Collection Method Collection Time Re ceived Time Location / / Volume Laterality 11/22/2019 9:53 AM CDT Impressions 11/22/2019 10:45 AM CDT 1. Normal appearance of the hepatic allograft. Patent vasculature with unchanged dilation of the main portal vein. 2. Unchanged pancreatic cysts, which may represent sidebranch IPMNs. 3. Unchanged parenchymal thinning and in creased echogenicity of the bilateral kidneys consistent with known chronic re nal disease. Narrative 11/22/2019 10:45 AM CDT EXAM: US LIVER TRANSPLANT Exam performed with color and spectral D oppler analysis. COMPARISON: Liver transplant ultrasound from 08/24/2018; abdominal MRI from 09/20/2011. FINDINGS: Transplant date: 06/13/2013 Hepatic allograft: Normal. No masses. Gallbladder: Absent. Bile ducts: Not dilated. Doppler Splenic, portal, and hepatic vei ns are patent with antegrade flow. The main hepatic artery is patent with anteg rade flow. Unchanged dilation of the main portal vein measuring up to 2.8 cm in the midportion, previously 2.8 cm. MHA peak systolic velocity: 69 cm/s MHA RI: 0.73 RHA RI: 0.69 LHA RI: 0.74 Resistive indices: Unchanged borderline elevated. IVC: Normal where seen. Pancreas: Partially obscured by bowel ga s. Simple cystic lesions within the pancreatic head measuring 0.9 x 1.3 x 1. 2 cm and 0.7 x 0.8 x 0.8 cm, which are unchanged compared MRI of the abdomen fr om 09/20/2011. Right kidney: Length: 9.8 cm. 1.4 cm monet al cyst, previously seen thin septation is not demonstrated on today's study. Un changed parenchymal thinning with increased echogenicity. No hydronephrosi s. Left kidney: Length: 10.0 cm. 1.0 cm monet al cyst. Unchanged parenchymal thinning with increased echogenicity. No hydronep hrosis. Spleen: Mild splenomegaly. ??Length: 14. 2 cm Aorta: Normal caliber. Other: No ascites. Procedure Note Leonid Carey M.D. - 11/22/2019Forma tting of this note might be different from the original. EXAM: US LIVER TRANSPLANT Exam performed with color and spectral D oppler analysis. COMPARISON: Liver transplant ultrasound from 08/24/2018; abdominal MRI from 09/20/2011. FINDINGS: Transplant date: 06/13/2013 Hepatic allograft: Normal. No masses. Gallbladder: Absent. Bile ducts: Not dilated. Doppler Splenic, portal, and hepatic vei ns are patent with antegrade flow. The main hepatic artery is patent with anteg rade flow. Unchanged dilation of the main portal vein measuring up to 2.8 cm in the midportion, previously 2.8 cm. MHA peak systolic velocity: 69 cm/s MHA RI: 0.73 RHA RI: 0.69 LHA RI: 0.74 Resistive indices: Unchanged borderline elevated. IVC: Normal where seen. Pancreas: Partially obscured by bowel ga s. Simple cystic lesions within the pancreatic head measuring 0.9 x 1.3 x 1. 2 cm and 0.7 x 0.8 x 0.8 cm, which are unchanged compared MRI of the abdomen fr om 09/20/2011. Right kidney: Length: 9.8 cm. 1.4 cm monet al cyst, previously seen thin septation is not demonstrated on today's study. Un changed parenchymal thinning with increased echogenicity. No hydronephrosi s. Left kidney: Length: 10.0 cm. 1.0 cm monet al cyst. Unchanged parenchymal thinning with increased echogenicity. No hydronep hrosis. Spleen: Mild splenomegaly. Length: 14.2 cm Aorta: Normal caliber. Other: No ascites. IMPRESSION: 1. Normal appearance of the hepatic allo graft. Patent vasculature with unchanged dilation of the main portal vein. 2. Unchanged pancreatic cysts, which may represent sidebranch IPMNs. 3. Unchanged parenchymal thinning and in creased echogenicity of the bilateral kidneys consistent with known chronic re nal disease. Angélica Granger P.A.-C. IMG US PROCEDURES documented in this encounter Visit Diagnoses Diagnosis Transplant Liver (HCC) Medication Therapy Fundraising Director Not Anticoa gulant documented in this encounter Additional Health Concerns Assessment Noted Time PHQ-9 Depression Total Score: 3 11/22/2019 7:34 AM CDT documented as of this encounter Care Teams Pin Sticker Relationship Specialty Start Date End Date Elsewhere, Pcp PCP - General Family Medicine 07/29/17 documented as of this encounter
--- OUTSIDE RECORDS SUMMARY | 2022-04-13 12:28 | XMS_ITS | Encounter Summary ---
:1955 Author Organization [facility] Address [address] [place] [address] Care Team Providers Name Role Phone Elsewhere, Pcp Primary Care Provider Unavailable Encounter Details Date Type Department Care Team Description 11/23/2019 Orders Only [facility] evette Stern for Transplantation and M.DDemetrius Clinical Regeneration in [address] [place] [phone] [place] [address] [phone] Social History Tobacco Use Types Packs/Day Years [...] at Date Recorded Male 05/16/2020 4:27 PM 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 [address] [place] [phone] 04/25/2022 Office Visit Otorhinolaryngology Dex Matta APRN, C.N.P., M.S.N. [address] [place] [phone] 05/08/2022 Appointment Laboratory Medicine Angélica Granger P.A.-CDemetrius [address] [place] [phone] 05/08/2022 Clinical Admitting/Central Communication Scheduling 05/10/2022 Appointment Radiology Jeremie Rose M.D. [address] [place] [phone] 05/10/2022 Comprehensive Visit Orthopedic Surgery Warner Graves M.D. [address] [place] [phone] 05/22/2022 Appointment Laboratory Medicine Angélica Granger P.A.-C. [address] [place] [phone] 06/05/2022 Appointment Laboratory Medicine Angélica Granger P.A.-C. [address] [place] [phone] 06/19/2022 Appointment Laboratory Medicine Angélica Granger P.A.-C. [address] [place] [phone] 07/03/2022 Appointment Laboratory Medicine Angélica Granger P.A.-C. [address] [place] [phone] 07/17/2022 Appointment Laboratory Medicine Angélica Granger P.A.-C. [address] [place] [phone] 07/31/2022 Appointment Laboratory Medicine Angélica Granger P.A.-C. [address] [place] [phone] 08/14/2022 Appointment Laboratory Angélica Royal P.A.-C. [address] [place] [phone] 08/28/2022 Appointment Laboratory Angélica Royal P.A.-C. [address] [place] [phone] documented as of this encounter Visit Diagnoses Not on filedocumented in this encounter Additional Health Concerns Assessment Noted Time PHQ-9 Depression Total Score: 3 11/22/2019 7:34 AM CDT documented as of this encounter Care Teams Instructor Decorating Relationship Specialty Start Date End Date Elsewhere, Pcp PCP - General Family Medicine 07/29/17 documented as of this encounter
--- OUTSIDE RECORDS SUMMARY | 2022-04-13 12:28 | XMS_ITS | Encounter Summary ---
:1955 Author Organization [facility] Address [address] [place] [address] Care Team Providers Name Role Phone Elsewhere, Pcp Primary Care Provider Unavailable Reason for Visit Reason Comments Med Refill Encounter Details Date Type Department Care Team Description 11/21/2019 Refill [facility] Tiffanie Blackman M.D. 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 [address] [place] [phone] 04/25/2022 Office Visit Otorhinolaryngology eDx Matta, RAMONA, C.N.P., M.S.N. [address] [place] [phone] 05/08/2022 Appointment Laboratory Medicine Angélica Granger, P.A.-C. [address] [place] [phone] 05/08/2022 Clinical Admitting/Central Communication Scheduling 05/10/2022 Appointment Radiology Jeremie Rose M.D. [address] [place] [phone] 05/10/2022 Comprehensive Visit Orthopedic Surgery Warner Graves M.D. [address] [place] [phone] 05/22/2022 Appointment Laboratory Medicine Angélica Granger P.A.-C. [address] [place] [phone] 06/05/2022 Appointment Laboratory Medicine Angélica Granger P.A.-C. [address] [place] [phone] 06/19/2022 Appointment Laboratory Angélica Royal P.A.-C. [address] [place] [phone] 07/03/2022 Appointment Laboratory Angélica Royal P.A.-C. [address] [place] [phone] 07/17/2022 Appointment Laboratory Angélica Royal P.A.-C. [address] [place] [phone] 07/31/2022 Appointment Laboratory Angélica Royal P.A.-C. [address] [place] [phone] 08/14/2022 Appointment Laboratory Angélica Royal P.A.-C. [address] [place] [phone] 08/28/2022 Appointment Laboratory Angélica Royal P.A.-C. [address] [place] [phone] documented as of this encounter Visit Diagnoses Diagnosis Transplant Liver (HCC) documented in this encounter Additional Health Concerns Assessment Noted Time PHQ-9 Depression Total Score: 5 03/02/2019 10:51 AM CD T documented as of this encounter Care Teams Logistics Clerk Relationship Specialty Start Date End Date Elsewhere, Pcp PCP - General Family Medicine 07/29/17 documented as of this encounter
--- OUTSIDE RECORDS SUMMARY | 2022-04-13 12:28 | XMS_ITS | Encounter Summary ---
:1955 Author Organization [facility] Address [address] [place] [address] Care Team Providers Name Role Phone Elsewhere, Pcp Primary Care Provider Unavailable Reason for Visit Outpatient (Routine) - Closed Specialty Diagnoses / Procedures Referred By Contact Refer red To Contact Pulmonary Medicine Diagnoses Transplant Liver (HCC) Angélica Granger, [facility] P.A.-C. [address] [place] [phone] Referral ID Status Reason Start Date Expiration Date Visits V isits Requested Authorized [id number] Closed Specialty 11/23/2019 11/22/2020 1 1 Services Required Encounter Details Date Type Department Care Team Description 11/23/2019 Office Visit Curt Diaz, [facility] (HCC) Transplantation and [address] [place] [address] [facility] [place], [place] [phone] [place] [address] [place] [address] (Work) [phone] Social History Tobacco Use Types Packs/Day Years [...] 12/15/2021 organizations such as druze groups, unions, [employer]ial [employer] or athletic groups, or school groups? 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 - 11/23/2019 3:00 PM CDT REASON FOR CONSULT Post Liver Transplant Pulmonary Evaluation Referred by: Dr Buenrostro HISTORY OF PRESENT ILLNESS Mr. Bruce Singh is a 64 y.o. male who presents for cough which has been going on for several months but recently has been worse. 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 He is on no respiratory medications. He does not smoke. Chest x-ray is normal. He has had a chronic sinusitis problem in the past - as noted notes from November 2018 Chest CTscan shows thickened bronchi bilaterally question of some tree-in-bud type of appearance in the leftlower lobe which is very subtle. He has not had fever. Does get short of breath with exertion. Exam Cardiac exam indicates a regular rhythm. Lung examination is abnormal. He has got rhonchi in both lower lung licea greater on the left. End expiratory wheeze. Impression and plan. The gentleman also gives a history of postnasal drip from rhinitis. Chronic sinusitis history is noted. This may be contributing to the airway findings. There is some information on going so I am goingto give him albuterol 2 puffs 3 to 4 times a day and give him a short prednisone taper. Will do 30 mg every morning for 5 days to see if there is some improvement. At some point he needs complete pulmonary function testing, sputum analysis if this persists and even a possible bronchoscopy but I do notthink he has that ill at this point proceed along those lines. I do not want to treat him with antibiotics without knowing that we have an organism to attack. All questions were answered and his liver t eam is comfortable with this approach as is he. All scripts were sent to [facility] in [place]. End dictation questions were answered. 25 minutes counseling/40 minutes total time documented in this encounter Plan of Treatment Upcoming Encounters Date Type Specialty Care Team Description 04/24/2022 Appointment Laboratory Medicine Angélica Granger, P.A.-CDemetrius [address] [place] [phone] 04/25/2022 Office Visit Otorhinolaryngology Dex Matta, RAMONA, C.N.P., M.S.N. [address] [place] [phone] 05/08/2022 Appointment Laboratory Medicine Angélica Granger P.A.-CDemetrius [address] [place] [phone] 05/08/2022 Clinical Admitting/Central Communication Scheduling 05/10/2022 Appointment Radiology Jeremie Rose M.D. [address] [place] [phone] 05/10/2022 Comprehensive Visit Orthopedic Surgery Warner Graves M.D. [address] [place] [phone] 05/22/2022 Appointment Laboratory Medicine Angélica Granger P.A.-C. [address] [place] [phone] 06/05/2022 Appointment Laboratory Medicine Angélica Granger P.A.-C. [address] [place] [phone] 06/19/2022 Appointment Laboratory Medicine Angélica Granger P.A.-C. [address] [place] [phone] 07/03/2022 Appointment Laboratory Medicine Angélica Granger P.A.-C. [address] [place] [phone] 07/17/2022 Appointment Laboratory Medicine Angélica Granger P.A.-C. [address] [place] [phone] 07/31/2022 Appointment Laboratory Medicine Angélica Granger P.A.-C. [address] [place] [phone] 08/14/2022 Appointment Laboratory Medicine Angélica Granger P.A.-C. [address] [place] [phone] 08/28/2022 Appointment Laboratory Medicine Angélica Granger P.A.-C. [address] [place] [phone] documented as of this encounter Visit Diagnoses Diagnosis Transplant Liver (HCC) documented in this encounter Additional Health Concerns Assessment Noted Time PHQ-9 Depression Total Score: 3 11/22/2019 7:34 AM CDT documented as of this encounter Care Teams Strawhat Sizer Relationship Specialty Start Date End Date Elsewhere, Pcp PCP - General Family Medicine 07/29/17 documented as of this encounter
--- OUTSIDE RECORDS SUMMARY | 2022-04-13 12:29 | XMS_ITS | Encounter Summary ---
:1955 Author Organization [facility] Address [address] [place] [address] Care Team Providers Name Role Phone Elsewhere, Pcp Primary Care Provider Unavailable Reason for Visit Reason Onset Date Comments Med Refill 07/26/2019 Encounter Details Date Type Department Care Team Description 07/26/2019 [facility] Transplantation and Clinical R.N . 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 [address] [place] [phone] 05/08/2022 Appointment Laboratory Medicine Angélica Granger P.ADemetrius-CDemetrius [address] [place] [phone] 05/08/2022 Clinical Admitting/Central Communication Scheduling 05/10/2022 Appointment Radiology Jeremie Rose M.D. [address] [place] [phone] 05/10/2022 Comprehensive Visit Orthopedic Surgery Warner Graves M.D. [address] [place] [phone] 05/22/2022 Appointment Laboratory Medicine Angélica Granger P.A.-CDemetrius [address] [place] [phone] 06/05/2022 Appointment Laboratory Medicine Angélica Granger P.A.-C. [address] [place] [phone] 06/19/2022 Appointment Laboratory Medicine Angélica Granger P.A.-C. [address] [place] [phone] 07/03/2022 Appointment Laboratory Medicine Angélica Granger P.A.-C. [address] [place] [phone] 07/17/2022 Appointment Laboratory Medicine Angélica Granger P.A.-C. [address] [place] [phone] 07/31/2022 Appointment Laboratory Medicine Angélica Granger P.A.-C. [address] [place] [address] [phone] 08/14/2022 Appointment Laboratory Medicine Angélica Granger P.A.-C. [address] [place] [phone] 08/28/2022 Appointment Laboratory Angélica Royal P.A.-C. [address] [place] [phone] documented as of this encounter Visit Diagnoses Diagnosis Medication Therapy Skilled Nursing Not Anticoa gulant - Primary Transplant Liver (HCC) documented in this encounter Additional Health Concerns Assessment Noted Time PHQ-9 Depression Total Score: 5 03/02/2019 10:51 AM CD T documented as of this encounter Care Teams Professor Of Anthropology Relationship Specialty Start Date End Date Elsewhere, Pcp PCP - General Family Medicine 07/29/17 documented as of this encounter
--- OUTSIDE RECORDS SUMMARY | 2022-04-13 12:29 | XMS_ITS | Encounter Summary ---
:1955 Author Organization [facility] Address [address] [place] [address] Care Team Providers Name Role Phone Elsewhere, Pcp Primary Care Provider Unavailable Encounter Details Date Type Department Care Team Description 08/16/2019 Orders Only Blanca Luis ansplant Liver (HCC) (Primary Dx); Center for M, R.N. 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 [address] [place] [phone] 05/08/2022 Appointment Laboratory Medicine Angélica Granger P.A.-CDemetrius [address] [place] [phone] 05/08/2022 Clinical Admitting/Central Communication Scheduling 05/10/2022 Appointment Radiology Jeremie Rose M.D. [address] [place] [phone] 05/10/2022 Comprehensive Visit Orthopedic Surgery Warner Graves M.D. [address] [place] [phone] 05/22/2022 Appointment Laboratory Medicine Angélica Granger P.A.-CDemetrius [address] [place] [phone] 06/05/2022 Appointment Laboratory Medicine Angélica Granger P.A.-C. [address] [place] [phone] 06/19/2022 Appointment Laboratory Medicine Angélica Granger P.A.-C. [address] [place] [phone] 07/03/2022 Appointment Laboratory Medicine Angélica Granger P.A.-C. [address] [place] [phone] 07/17/2022 Appointment Laboratory Medicine Angélica Granger P.A.-C. [address] [place] [address] [phone] 07/31/2022 Appointment Laboratory Medicine Angélica Granger P.A.-C. [address] [place] [phone] 08/14/2022 Appointment Laboratory Medicine Angélica Granger P.A.-C. [address] [place] [phone] 08/28/2022 Appointment Laboratory Medicine Angélica Granger P.A.-C. [address] [place] [phone] documented as of this encounter Visit Diagnoses Diagnosis Transplant Liver (HCC) - Primary Medication Therapy Nursing Home Not Anticoa gulant documented in this encounter Additional Health Concerns Assessment Noted Time PHQ-9 Depression Total Score: 5 03/02/2019 10:51 AM CD T documented as of this encounter Care Teams Orthopedic Brace Maker Relationship Specialty Start Date End Date Elsewhere, Pcp PCP - General Family Medicine 07/29/17 documented as of this encounter
--- OUTSIDE RECORDS SUMMARY | 2022-04-13 12:29 | XMS_ITS | Encounter Summary ---
:1955 Author Organization [facility] Address [address] [place] [address] Care Team Providers Name Role Phone Elsewhere, Pcp Primary Care Provider Unavailable Reason for Visit Reason Comments COVID Nurse Line Encounter Details Date Type Department Care Team Description 11/16/2019 Clinical Communication SHERIDAN Ching Nurse Line Center for Angélica J, Transplantation and P.A.-C. 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 - 11/16/2019 4:06 PM CDT COVID-19 Nurse Appointment Scheduling Screening ASSESSMENT COVID Schedule Appointment Screening In the past 14 days, have you been tested for COVID-19 with a positive or pending result?: No testing completed (Continue with screening) In the past 14 days have you experienced any of the following symptoms?: New change or loss of tastesensation(recurring gagging sx taste sensation. has lost 10lbs. sweets taste better) Have you had close contact with a person who has a LABORATORY CONFIRMED case of COVID-19?: No - Continue screening. Which of your symptoms have been present in the last 48 hours?: No symptoms noted in the last 48 hours Does anyone else live in your household?: No (continue screening) ?? In the past 14 days, has anyone in your household experienced the following symptoms or have you or anyone in your household had close contact with someone who has experienced the following symptoms?: No symptoms noted (continue screening) In the past 14 days have you or a member of your household had exposure to the following?: No close contact (Complete screening. Patient is okay to be scheduled for upcoming appointments) PLAN Endpoint recommendation: Appropriate for appointment to be scheduled. Sending information to the scheduling/desk staff. Care Points provided: STANDARD PRECAUTIONS FOR ALL PATIENTS: Wash hands often with soap and water for at least 20 seconds, especially after blowing your nose, coughing, sneezing, or having been in a public place. If soap and water aren't available, use a hand master coastwise yacht that contains at least 60% alcohol. Avoid close contact with anyone who may be exhibiting respiratory symptoms such as coughing and sneezing. Avoid touching your eyes, nose and mouth. Clean and disinfect frequently touched surfaces daily. Cover your mouth and nose with a cloth face cover when around others or in public. The cloth face cover is not a substitute for social distancing. Continue to keep about 6 feet between yourself andothers. Stay home as much as possible (only going out for essential items or medical care). Educational Resource: https://www.cdc.gov/coronavirus/2019-ncov/edbdsww-ajkvraz-alxy/index.html SELF CARE FOR ALL PATIENTS: In these stressful times, it is important to take care of your mental health as well as your physical health. Take breaks from watching, reading, or listening to news stories. It can be upsetting to hear about the crisis and see images repeatedly. Make time to unwind. Try to do some other activities you enjoy. Connect with others. Talk with people you trust about your concerns and how you are feeling. Be creative in keeping connected with loved ones. Develop a plan for your day. Shower, get dressed, have a routine. Structure in productive tasks as well as leisure time. Try healthy coping strategies such as meditation, relaxation, exercise, healthy eating habits, and avoid alcohol and drugs. Maintain a consistent sleep schedule. Keep sleep area and work areas separate. Education: patient/caregiver Patient/caregiver able to teach back Patient agreeable to plan of care: Yes The following references were used: [facility] novel coronavirus (COVID- 19) resources [facility] Nursing judgement Telephone Encounter - Lena Brown - 11/16/2019 1:56 PM CDT 1. Do you have a [...] C (100.5 F) lasting 24 hours? no New symptoms (Specifically: headache, cough, shortness of breath, respiratory distress, sore throat,diarrhea, nausea, vomiting, chills and repeated shaking with chills, myalgia's (muscle aches), loss of smell, or change or loss of taste sensation)? Coughs/gags when brushing teeth b. Had close contact with a patient with known or possible COVID-19 in the last 14 days? no Route reply to: Lena Brown Scheduling Contact Number: RST TXP JEANNINE SCHEDULING documented in this encounter Plan of Treatment Upcoming Encounters Date Type Specialty Care Team Description 04/24/2022 Appointment Laboratory Medicine Angélica Granger P.A.-CDemetrius [address] [place] [phone] 04/25/2022 Office Visit Otorhinolaryngology Dex Matta, RAMONA, C.N.P., M.S.N. [address] [place] [phone] 05/08/2022 Appointment Laboratory Medicine Angélica Granger P.A.-CDemetrius [address] [place] [phone] 05/08/2022 Clinical Admitting/Central Communication Scheduling 05/10/2022 Appointment Radiology Jeremie Rose M.D. [address] [place] [phone] 05/10/2022 Comprehensive Visit Orthopedic Surgery Warner Graves M.D. [address] [place] [phone] 05/22/2022 Appointment Laboratory Medicine Angélica Granger P.A.-C. [address] [place] [phone] 06/05/2022 Appointment Laboratory Medicine Angélica Granger P.A.-C. [address] [place] [phone] 06/19/2022 Appointment Laboratory Medicine Angélica Granger P.A.-C. [address] [place] [phone] 07/03/2022 Appointment Laboratory Angélica Royal P.A.-C. [address] [place] [phone] 07/17/2022 Appointment Laboratory Medicine Angélica Granger P.A.-C. [address] [place] [phone] 07/31/2022 Appointment Laboratory Angélica Royal P.A.-C. [address] [place] [phone] 08/14/2022 Appointment Laboratory Angélica Royal P.A.-C. [address] [place] [phone] 08/28/2022 Appointment Laboratory Medicine Angélica Granger P.A.-C. [address] [place] [phone] documented as of this encounter Visit Diagnoses Not on filedocumented in this encounter Additional Health Concerns Assessment Noted Time PHQ-9 Depression Total Score: 5 03/02/2019 10:51 AM CD T documented as of this encounter Care Teams Mapping Engineer Relationship Specialty Start Date End Date Elsewhere, Pcp PCP - General Family Medicine 07/29/17 documented as of this encounter
--- OUTSIDE RECORDS SUMMARY | 2022-04-13 12:29 | XMS_ITS | Encounter Summary ---
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 - 09/20/2019 11:22 AM CDT Surescripts refill request received for atorvastatin 10 mg daily. Prescription forwarded to provideras previous prescription had zero refills. documented in this encounter Plan of Treatment Upcoming Encounters Date Type Specialty Care Team Description 04/24/2022 Appointment Laboratory Medicine Angélica Granger P.A.-C. [address] [place] [phone] 04/25/2022 Office Visit Otorhinolaryngology Dex Matta APRN, C.N.P., M.S.N. [address] [place] [phone] 05/08/2022 Appointment Laboratory Medicine Angélica Granger P.A.-C. [address] [place] [phone] 05/08/2022 Clinical Admitting/Central Communication Scheduling 05/10/2022 Appointment Radiology Jeremie Rose M.D. [address] [place] [phone] 05/10/2022 Comprehensive Visit Orthopedic Surgery Warner Graves M.D. [address] [place] [phone] 05/22/2022 Appointment Laboratory Medicine Angélica Granger P.A.-C. [address] [place] [phone] 06/05/2022 Appointment Laboratory Medicine Angélica Granger P.A.-C. [address] [place] [phone] 06/19/2022 Appointment Laboratory Medicine Angélica Granger P.A.-C. [address] [place] [phone] 07/03/2022 Appointment Laboratory Medicine Angélica Granger P.A.-C. [address] [place] [phone] 07/17/2022 Appointment Laboratory Medicine Angélica Granger P.A.-C. [address] [place] [phone] 07/31/2022 Appointment Laboratory Medicine Angélica Granger P.A.-C. [address] [place] [phone] 08/14/2022 Appointment Laboratory Medicine Angélica Granger P.A.-C. [address] [place] [phone] 08/28/2022 Appointment Laboratory Medicine Angélica Granger P.A.-C. [address] [place] [phone] documented as of this encounter Visit Diagnoses Not on filedocumented in this encounter Additional Health Concerns Assessment Noted Time PHQ-9 Depression Total Score: 5 03/02/2019 10:51 AM CD T documented as of this encounter Care Teams Egg Grader Relationship Specialty Start Date End Date Elsewhere, Pcp PCP - General Family Medicine 07/29/17 documented as of this encounter
--- OUTSIDE RECORDS SUMMARY | 2022-04-13 12:29 | XMS_ITS | Encounter Summary ---
:1955 Author Organization [facility] Address [address] [place] [address] Care Team Providers Name Role Phone Elsewhere, Pcp Primary Care Provider Unavailable Encounter Details Date Type Department Care Team Description 11/17/2019 Hospital Encounter Department of Laura Bailey Renal Radiology, Kd Hobson M.D. 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 mycophenolate (CELLCEPT) TAKE 1 TABLET BY 180 tablet 3 12/1011/22/2019 500 mg MOUTH TWICE DAILY tabletIndications: Transplant Liver (HCC) predniSONE (DELTASONE) 5 Take 1 tablet (5 mg 90 tablet 3 07/20/2020 mg tabletIndications: total) by mouth Transplant Liver (HCC), daily. Medication Therapy Glaze Sprayer Not Anticoagulant tacrolimus (PROGRAF) 0.5 Take 2 [...] Laboratory Medicine Angélica Granger P.A.-C. [address] [place] [phone] 04/25/2022 Office Visit Otorhinolaryngology Dex Matta APRN, C.N.P., M.S.N. [address] [place] [phone] 05/08/2022 Appointment Laboratory Medicine Angélica Granger P.A.-C. [address] [place] [phone] 05/08/2022 Clinical Admitting/Central Communication Scheduling 05/10/2022 Appointment Radiology Jeremie Rose M.D. [address] [place] [phone] 05/10/2022 Comprehensive Visit Orthopedic Surgery Warner Graves M.D. [address] [place] [phone] 05/22/2022 Appointment Laboratory Medicine Angélica Granger P.A.-C. [address] [place] [phone] 06/05/2022 Appointment Laboratory Medicine Angélica Granger P.A.-C. [address] [place] [phone] 06/19/2022 Appointment Laboratory Medicine Angélica Granger P.A.-C. [address] [place] [phone] 07/03/2022 Appointment Laboratory Medicine Angélica Granger P.A.-C. [address] [place] [phone] 07/17/2022 Appointment Laboratory Medicine Angélica Granger P.A.-C. [address] [place] [phone] 07/31/2022 Appointment Laboratory Medicine Angélica Granger P.A.-C. [address] [place] [phone] 08/14/2022 Appointment Laboratory Medicine Angélica Granger P.A.-C. [address] [place] [phone] 08/28/2022 Appointment Laboratory Medicine Angélica Granger P.A.-C. [address] [place] [phone] documented as of this encounter Procedures Procedure Name Priority Date/Time Associated Comments Diagnosis US KIDNEYS WITH RAD - Routine 11/17/2019 8:54 Stenosis Renal Result s for this RENAL ARTERY (most inpatients AM CDT Artery (HCC) procedure a re in DOPPLER and all the results outpatients) section. documented in this encounter Results US Kidneys with Renal Artery Doppler (11/17/2019 8:54 AM CDT) Anatomical Region Laterality Modality Abdomen, Renal, Ultrasound RST LOS, Ultrasound ARZ LOS, N/A Ultrasound Ultrasound FLA LOS, Procedural Specimen (Source) Anatomical Collection Method Collection Time Re ceived Time Location / / Volume Laterality 11/17/2019 8:55 AM CDT Impressions 11/17/2019 9:03 AM CDT 1. Right renal artery proximal significant stenosis again seen with slightly lower velocities today. 2. 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 COMPARISON: Prior ultrasound 02/10/2018 FINDINGS: Right kidney: Cortical thinning. Echogen ic parenchyma. Small cyst. Right renal artery: Elevated velocities proximally consistent with a significant stenosis. The velocities are slightly lo wer today compared the prior ultrasound Left kidney: Echogenic parenchyma. Corti adelfo thinning. Renal cysts. 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 may have spontaneously occluded Left renal artery: Negative for stenosis ; single vessel moderately well Right Renal Measurements: Right renal length: 9.4 cm Right segmental artery - upper pole RI: 0.80 Right segmental artery - lower pole RI: 0.80 Right renal artery origin PSV: 226 cm/s Right renal artery prox PSV: 99 cm/s Right renal artery mid PSV: 50 cm/s Right renal artery distal PSV: 46 cm/s Left Renal Measurements: Left renal length: 9.3 cm Left segmental artery - upper pole RI: 0 .70 Left segmental artery - lower pole RI: 0 .66 Left renal artery origin PSV: 119 cm/s Left renal artery prox PSV: 112 cm/s Left renal artery mid PSV: 96 cm/s Left renal artery distal PSV: 59 cm/s Aorta PSV: 61 cm/s Procedure Note Otoniel Gordon M.D. - 11/17/2019Formatti ng of this note might be different from the original. EXAM: US KIDNEYS WITH RENAL ARTERY DOPPL ER Exam performed with color and spectral D oppler analysis. COMPARISON: Prior ultrasound 02/10/2018 FINDINGS: Right kidney: Cortical thinning. Echogen ic parenchyma. Small cyst. Right renal artery: Elevated velocities proximally consistent with a significant stenosis. The velocities are slightly lo wer today compared the prior ultrasound Left kidney: Echogenic parenchyma. Corti adelfo thinning. Renal cysts. 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 may have spontaneously occluded Left renal artery: Negative for stenosis ; single vessel moderately well Right Renal Measurements: Right renal length: 9.4 cm Right segmental artery - upper pole RI: 0.80 Right segmental artery - lower pole RI: 0.80 Right renal artery origin PSV: 226 cm/s Right renal artery prox PSV: 99 cm/s Right renal artery mid PSV: 50 cm/s Right renal artery distal PSV: 46 cm/s Left Renal Measurements: Left renal length: 9.3 cm Left segmental artery - upper pole RI: 0 .70 Left segmental artery - lower pole RI: 0 .66 Left renal artery origin PSV: 119 cm/s Left renal artery prox PSV: 112 cm/s Left renal artery mid PSV: 96 cm/s Left renal artery distal PSV: 59 cm/s Aorta PSV: 61 cm/s IMPRESSION: 1. Right renal artery proximal significa nt stenosis again seen with slightly lower velocities today. 2. 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
--- OUTSIDE RECORDS SUMMARY | 2022-04-13 12:29 | XMS_ITS | Encounter Summary ---
:1955 Author Organization [facility] Address [address] [place] [address] Care Team Providers Name Role Phone Elsewhere, Pcp Primary Care Provider Unavailable Encounter Details Date Type Department Care Team Description 11/17/2019 Hospital Encounter Department of [facility], Chronic Kidney Disease Stage 4 Glomerular Filtration Rate 15-29 (HCC); Laboratory Medicine Sada Hobson Transplant Liver (HCC); and Pathology, [address] [place] [address] Medication Therapy Pacs Specialist Not Anticoa gulant; [facility] in [place], [place] Chronic Kidney Disease ; [place], [place] [phone] Osteoporosis; [address] [facility] [phone] Screening Examination Prosta [facility] [place], [place] (Work) [phone] Social History Tobacco Use Types Packs/Day Years [...] Date Recorded Male 05/16/2020 4:27 PM [employer] documented as of this encounter Medications [...] Disease Stage 4 Glomerular Filtration Rate 15-29 ([facility]) aspirin [address] tablet Take 81 [...] mg tabletIndications: total) by mouth Transplant Liver ([facility]), daily. Medication Therapy Detention Not Anticoagulant tacrolimus (PROGRAF) 0.5 Take 2 capsules (1 360 capsule 3 07/20/2020 mg capsuleIndications: mg total) by mouth Transplant Liver ([facility]), 2 (two) times a Medication Therapy Long [...] Laboratory Medicine Angélica Granger P.A.-C. [address] [place] [phone] 04/25/2022 Office Visit Otorhinolaryngology Dex Matta APRN, C.N.P., M.S.N. [address] [place] [phone] 05/08/2022 Appointment Laboratory Medicine Angélica Granger P.A.-CDemetrius [address] [place] [phone] 05/08/2022 Clinical Admitting/Central Communication Scheduling 05/10/2022 Appointment Radiology Jeremie Rose M.D. [address] [place] [phone] 05/10/2022 Comprehensive Visit Orthopedic Surgery Warner Graves M.D. [address] [place] [phone] 05/22/2022 Appointment Laboratory Medicine Angélica Granger P.A.-CDemetrius [address] [place] [phone] 06/05/2022 Appointment Laboratory Medicine Angélica Granger P.A.-C. [address] [place] [phone] 06/19/2022 Appointment Laboratory Medicine Angélica Granger P.A.-C. [address] [place] [phone] 07/03/2022 Appointment Laboratory Medicine Angélica Granger P.A.-C. [address] [place] [phone] 07/17/2022 Appointment Laboratory Medicine Angélica Granger P.A.-C. [address] [place] [phone] 07/31/2022 Appointment Laboratory Medicine Angélica Granger P.A.-C. [address] [place] [phone] 08/14/2022 Appointment Laboratory Medicine Angélica Granger P.A.-CDemetrius [address] [place] [phone] 08/28/2022 Appointment Laboratory Medicine Angélica Granger P.A.-C. [address] [place] [phone] documented as of this encounter Procedures Procedure Name Priority Date/Time Associated Diagnosis Comme nts IMMUNOFIXATION Routine 11/17/2019 9:29 Results fo r this AM CDT procedure are i n the results section. RENAL FUNCTION PANEL, Routine 11/17/2019 9:29 Chronic Kidney R esults for this S AM CDT Disease Stage 4 procedure ar e in Glomerular Filtration the re sults Rate 15-29 (HCC) section. CBC NO CALL BACK, Routine 11/17/2019 9:29 Transplant Liver Res ults for this REFLEX T/S AM CDT (HCC) procedure are in Medication Therapy the resul ts Detention Not section. Anticoagulant PROSTATE-SPECIFIC AG Routine 11/17/2019 9:29 Transplant Liver Results for this (PSA) SCRN, S AM CDT (HCC) procedure are in Medication Therapy the resul ts Detention Not section. Anticoagulant Screening Examination Prostate Cancer CYSTATIN C WITH EGFR Routine 11/17/2019 9:29 Chronic Kidney Re sults for this AM CDT Disease Stage 4 procedure ar e in Glomerular Filtration the re sults Rate 15-29 (HCC) section. TACROLIMUS LEVEL, B Routine 11/17/2019 9:29 Transplant Liver R esults for this AM CDT (HCC) procedure are in Medication Therapy the resul ts Pacs Specialist Not section. Anticoagulant 25-HYDROXYVITAMIN D2 Routine 11/17/2019 9:29 Chronic Kidney Re sults for this AND D3, S AM CDT Disease Stage 4 procedure ar e in Glomerular Filtration the re sults Rate 15-29 (HCC) section. URIC ACID, S/P Routine 11/17/2019 9:29 Chronic Kidney Results for this AM CDT Disease Stage 4 procedure ar e in Glomerular Filtration the re sults Rate 15-29 (HCC) section. THYROID-STIMULATING Routine 11/17/2019 9:29 Transplant Liver R esults for this HORMONE-SENSITIVE AM CDT (HCC) procedure are in (S-TSH) Medication Therapy the resul ts Detention Not section. Anticoagulant ELECTROPHORESIS, Routine 11/17/2019 9:29 Results for this PROTEIN, S AM CDT procedure are i n the results section. PARATHYROID HORMONE Routine 11/17/2019 9:29 Chronic Kidney Res ults for this (PTH), S AM CDT Disease Stage 4 procedure ar e in Glomerular Filtration the re sults Rate 15-29 (HCC) section. MAGNESIUM, S Routine 11/17/2019 9:29 Chronic Kidney Results fo r this AM CDT Disease Stage 4 procedure ar e in Glomerular Filtration the re sults Rate 15-29 (HCC) section. HEMOGLOBIN A1C, B Routine 11/17/2019 9:29 Transplant Liver Res ults for this AM CDT (HCC) procedure are in Medication Therapy the resul ts Pacs Specialist Not section. Anticoagulant FERRITIN, S Routine 11/17/2019 9:29 Chronic Kidney Results fo r this AM CDT Disease Stage 4 procedure ar e in Glomerular Filtration the re sults Rate 15-29 (HCC) section. COMPREHENSIVE Routine 11/17/2019 9:29 Transplant Liver Results for this METABOLIC PANEL, S/P AM CDT (HCC) procedure are in Medication Therapy the resul ts Detention Not section. Anticoagulant MONONUCLEOSIS RNA/DNA Routine 11/17/2019 9:28 Transplant Liver Results for this AM CDT (HCC) procedure are in Medication Therapy the resul ts Pacs Specialist Not section. Anticoagulant ORGAN LIVER TX Routine 11/17/2019 9:28 Transplant Liver Result s for this AM CDT (HCC) procedure are in Medication Therapy the resul ts Detention Not section. Anticoagulant LIPID PANEL, S Routine 11/17/2019 9:28 Transplant Liver Result s for this AM CDT (HCC) procedure are in Medication Therapy the resul ts Pacs Specialist Not section. Anticoagulant IRON AND TOT Routine 11/17/2019 9:28 Chronic Kidney Results fo r this IRON-BINDING CAPACITY, AM CDT Disease Stage 4 pr ocedure are in S/P Glomerular Filtration the re sults Rate 15-29 (HCC) section. PROTHROMBIN TIME (PT), Routine 11/17/2019 9:28 Transplant Live r Results for this P AM CDT (HCC) procedure are in Medication Therapy the resul ts Pacs Specialist Not section. Anticoagulant BILIRUBIN DIRECT, S/P Routine 11/17/2019 9:28 Transplant Liver Results for this AM CDT (HCC) procedure are in Medication Therapy the resul ts Detention Not section. Anticoagulant documented in this encounter Results Immunofixation (11/17/2019 9:29 AM CDT) [facility] Method Time Signature Immunofixation No monoclonal 03/21/2020 [facility] protein 3:32 PM CDT detected. Specimen Anatomical Collection Method Collection Time Receive d Time (Source) Location / / Volume Laterality Blood 11/17/2019 9:29 AM 0 CDT 10:24 AM CDT Otoniel Davis M.D. LAB BLOOD NON ADD-ON Performing Organization Address City/State/ZIP Code Phon e Number [facility] [address] [place], [place] [address] [facility] [place] [address] Laboratory Medicine and Pathology [address] [place] (ABNORMAL) Electrophoresis, Protein (11/17/2019 9:29 AM CDT) [facility] Method Time Signature Total Protein, 5.8 (L) 6.3 - 7.9 03/17/2020 [facility] S g/dL 11:43 AM CDT Albumin 3.3 (L) 3.4 - 4.7 03/20/2020 [facility] g/dL 2:22 PM CDT Alpha-1 0.3 0.1 - 0.3 03/20/2020 [facility] Globulin g/dL 2:22 PM CDT Alpha-2 0.6 0.6 - 1.0 03/20/2020 [facility] Globulin g/dL 2:22 PM CDT Beta-Globulin 0.8 0.7 - 1.2 03/20/2020 [facility] g/dL 2:22 PM CDT Gamma-Globulin 0.9 0.6 - 1.6 03/20/2020 [facility] g/dL 2:22 PM CDT A/G Ratio 1.33 03/20/2020 [facility] 2:22 PM CDT Impression No apparent monoclonal protein on serum electrophoresi s. 03/20/2020 [facility] See Immunofixation. 2:22 PM CDT Specimen Anatomical Collection Method Collection Time Receive d Time (Source) Location / / Volume Laterality Blood 11/17/2019 9:29 AM 0 CDT 10:24 AM CDT Otoniel Davis M.D. LAB BLOOD ADD-ON Performing Organization Address City/State/ZIP Code Phon e Number [facility] [address] [place] [phone] [facility] [place] [address] Laboratory Medicine and Pathology [address] [place] (ABNORMAL) Tacrolimus, B (11/17/2019 9:29 AM CDT) athologist Signature Tacrolimus, B 1.7 (L) 5.0-15.0 11/17/2019 [facility] (Trough) 5:32 PM CDT ng/mL Comment: ----ADDITIONAL INFORMATION---- Target [...] performa nce characteristics determined by [facility] in a manner consistent with CLIA requirements. This test has not been cleared or approved by the U.S. Mer d and Drug Administration. Specimen Anatomical Collection Method Collection Time Receive d Time (Source) Location / / Volume Laterality Blood (Blood, 11/17/2019 9:29 AM 11/17/19 20 1:58 Venous) CDT PM CDT Angélica Granger P.A.-C. LAB BLOOD NON ADD-ON Performing Organization Address City/[facility]/ZIP [facility] Phon e Number [facility] [address] [place], [place] [address] [facility] [place] [address] Laboratory Medicine and Pathology [address] [place] PSA (Prostate-Specific Antigen) Screen (11/17/2019 9:29 AM CDT) athologist Signature Prostate-Specif 0.40 <=4.5 ng/mL 11/17/2019 [facility] ic Ag 12:21 PM CDT Comment: ----ADDITIONAL INFORMATION---- The testing method is an electrochemilum inescence assay manufactured by the [employer] and performed on the Modular or Didier system . Values obtained with different assay met hods or kits may be different and cannot be used inte rchangeably. Test results cannot be interpreted as ab solute evidence for the presence or absence of malignant disease. Specimen Anatomical Collection Method Collection Time Receive d Time (Source) Location / / Volume Laterality Blood (Blood, 11/17/2019 9:29 AM 11/17/19 20 9:49 Venous) CDT AM CDT Angélica Granger P.A.-C. LAB BLOOD ADD-ON Performing Organization Address City/[facility] Code Phon e Number [facility] - [address] [place], [place] [address] [facility] [place] [address] Laboratories-[facility] [address] (ABNORMAL) CBC no call back, reflex T/S HGB <8 (11/17/2019 9:29 AM CDT) Patholo gist Method Time Signature Hemoglobin 10.1 (L) 13.2 - 11/17/2019 [facility] 16.6 g/dL 9:54 AM CDT Hematocrit 32.1 (L) 38.3 - 11/17/2019 DTL 48.6 % 9:54 AM CDT Erythrocytes 3.26 (L) 4.35 - 11/17/2019 DTL 5.65 9:54 AM CDT x10(12)/L MCV 98.5 (H) 78.2 - 11/17/2019 DTL 97.9 fL 9:54 AM CDT RBC Distrib Width 13.3 11.8 - 11/17/2019 DTL 14.5 % 9:54 AM CDT Platelet Count 178 135 - 317 11/17/2019 DTL x10(9)/L 9:54 AM CDT Leukocytes 2.9 (L) 3.4 - 9.6 11/17/2019 [facility] x10(9)/L 9:54 AM CDT Neutrophils 1.78 1.56 - 11/17/2019 DTL 6.45 9:54 AM CDT x10(9)/L Lymphocytes 0.62 (L) 0.95 - 11/17/2019 DTL 3.07 9:54 AM CDT x10(9)/L Monocytes 0.39 0.26 - 11/17/2019 DTL 0.81 9:54 AM CDT x10(9)/L Eosinophils 0.07 0.03 - 11/17/2019 DTL 0.48 9:54 AM CDT x10(9)/L Basophils <0.03 0.01 - 11/17/2019 DTL 0.08 9:54 AM CDT x10(9)/L Specimen Anatomical Collection Method Collection Time Receive d Time (Source) Location / / Volume Laterality Blood (Blood, 11/17/2019 9:29 AM 11/17/19 20 9:49 Venous) CDT AM CDT Angélica Granger P.A.-C. LAB BLOOD NON ADD-ON Performing Organization Address City/State/ZIP Code Phon e Number [facility] - [address] [place], [place] [address] [facility] [place] [address] Laboratories-[facility] [address] (ABNORMAL) S-TSH (Thyroid-Stimulating Hormone - Sensitive) (11/17/2019 9:29 AM CDT) athologist Signature TSH, Sensitive 6.1 (H) 0.3 - 4.2 11/17/2019 DTL mIU/L 12:21 PM CDT Specimen Anatomical Collection Method Collection Time Receive d Time (Source) Location / / Volume Laterality Blood (Blood, 11/17/2019 9:29 AM 11/17/19 20 9:49 Venous) CDT AM CDT Angélica Granger P.A.-C. LAB BLOOD ADD-ON Performing Organization Address City/[facility] Phon e Number [facility] - 200 [place], [place] [address] [facility] [place] [address] Laboratories-[address] Hemoglobin A1c (11/17/2019 9:29 AM CDT) P athologist Signature Hemoglobin A1c, 5.5 4.0 - 5.6 11/17/2019 DTL B % 10:03 AM CDT Specimen Anatomical Collection Method Collection Time Receive d Time (Source) Location / / Volume Laterality Blood (Blood, 11/17/2019 9:29 AM 11/17/19 9:49 Venous) CDT AM CDT Angélica Granger P.A.-C. LAB BLOOD ADD-ON Performing Organization Address City/[facility] Phon e Number [facility] - [address] (ABNORMAL) Comprehensive Metabolic Panel (11/17/2019 9:29 AM CDT) Analysis Performed At Patho logist Time Signature Potassium, S 3.7 3.6 - 5.2 11/17/2019 DTL mmol/L 11:37 AM CDT Sodium, S 138 135 - 145 11/17/2019 [facility] mmol/L 11:37 AM CDT Chloride, S 99 98 - 107 11/17/2019 DTL mmol/L 11:37 AM CDT Bicarbonate, S 26 22 - 29 11/17/2019 DTL mmol/L 11:37 AM CDT Anion Gap 13 7 - 15 11/17/2019 DTL 11:37 AM CDT BUN (Blood Urea 43 (H) 8 - 24 11/17/2019 DTL Nitrogen), S mg/dL 11:37 AM CDT Creatinine 2.66 (H) 0.74 - 11/17/2019 DTL 1.35 mg/dL 11:37 AM CDT eGFR-Non 24 (L) >=60 11/17/2019 [facility] Black/ mL/min/BSA 11:37 AM CDT [place] Comment: ----ADDITIONAL INFORMATION---- Estimated GFR calculated using the 2009 CKD_EPI creatinine equation. eGFR-Black/ 28 (L) >=60 mL/min/BSA 2019 11:37 AM CDT DTL Comment: ----ADDITIONAL INFORMATION---- Estimated GFR calculated using the 2009 CKD_EPI creatinine equation. Calcium, Total, S 8.6 (L) 8.8 - 10.2 mg/dL 11/17/2019 11:3 7 AM CDT DTL Glucose, S 116 70 - 140 mg/dL 11/17/2019 11:37 AM CDT DTL Protein, Total, S 5.9 (L) 6.3 - 7.9 g/dL 11/17/2019 11:37 AM CDT DTL Albumin, S 3.9 3.5 - 5.0 g/dL 11/17/2019 11:37 AM CDT DTL Aspartate Aminotransferase 23 8 - 48 U/L 11/17/2019 1 1:37 AM CDT DTL (AST), S Alkaline Phosphatase, S 90 40 - 129 U/L 11/17/2019 11 :37 AM CDT DTL Alanine Aminotransferase 27 7 - 55 U/L 11/17/2019 11: 37 AM CDT DTL (ALT), S Bilirubin, Total, S 0.4 <=1.2 mg/dL 11/17/2019 11:37 A M CDT DTL Specimen Anatomical Collection Method Collection Time Receive d Time (Source) Location / / Volume Laterality Blood (Blood, 11/17/2019 9:29 AM 11/17/19 20 9:49 Venous) CDT AM CDT Angélica Granger P.A.-C. LAB BLOOD ADD-ON Performing Organization Address City/State/ZIP Code Phon e Number [facility] - [address] [place], [place] [address] [place] [address] Laboratories-[facility] [address] 25-Hydroxyvitamin D2 and D3 (11/17/2019 9:29 AM CDT) athologist Signature 25-Hydroxy D2 <4.0 ng/mL 11/18/2019 [facility] 10:45 PM CDT 25-Hydroxy D3 69 ng/mL 11/18/2019 [facility] 10:45 PM CDT 25-Hydroxy D 69 ng/mL 11/18/2019 [facility] Total 10:45 PM CDT Comment: Interpretation: 51-80 ng/mL (increased r isk of hypercalciuria) ----REFERENCE VALUE---- 25-HYDROXY D TOTAL (D2+D3) Optimum level s in the healthy population are 20-50, patients with bone disease may benefit from higher levels within this r itzel. ----ADDITIONAL INFORMATION---- This test was developed and its performa nce characteristics determined by [facility] in a manner consistent with CLIA requirements. This test has not been cleared or approved by the U.S. Mer d and Drug Administration. Specimen Anatomical Collection Method Collection Time Receive d Time (Source) Location / / Volume Laterality Blood (Blood, 11/17/2019 9:29 AM 11/17/19 20 2:29 Venous) CDT PM CDT Joce Bailey M.D. LAB BLOOD ADD-ON Performing Organization Address City/[facility]/ZIP Code Phon e Number [facility] [address] [place], [place] [address] [facility] [place] [address] Laboratory Medicine and Pathology [address] [place] (ABNORMAL) Parathyroid Hormone (PTH) (11/17/2019 9:29 AM CDT) athologist Signature Parathyroid 68 (H) 15 - 65 11/17/2019 DT Hormone (PTH), S pg/mL 12:21 PM CDT Specimen Anatomical Collection Method Collection Time Receive d Time (Source) Location / / Volume Laterality Blood (Blood, 11/17/2019 9:29 AM 11/17/19 20 9:49 Venous) CDT AM CDT Joce Bailey M.D. LAB BLOOD ADD-ON Performing Organization Address City/[facility]/ZIP Code Phon e Number [facility] - [address] [place], [place] [address] [facility] [place] [address] Laboratories-[facility] [address] Uric Acid (11/17/2019 9:29 AM CDT) athologist Signature Uric Acid, S 7.8 3.7 - 8.0 11/17/2019 DTL mg/dL 12:21 PM CDT Specimen Anatomical Collection Method Collection Time Receive d Time (Source) Location / / Volume Laterality Blood (Blood, 11/17/2019 9:29 AM 11/17/19 20 9:49 Venous) CDT AM CDT Joce Bailey M.D. LAB BLOOD ADD-ON Performing Organization Address City/State/ZIP Code Phon e Number [facility] - [address] [place], [place] [address] [place] [address] (ABNORMAL) Magnesium (11/17/2019 9:29 AM CDT) P athologist Signature Magnesium, S 2.5 (H) 1.7 - 2.3 11/17/2019 DTL mg/dL 12:21 PM CDT Specimen Anatomical Collection Method Collection Time Receive d Time (Source) Location / / Volume Laterality Blood (Blood, 11/17/2019 9:29 AM 11/17/19 9:49 Venous) CDT AM CDT Joce Bailey M.D. LAB BLOOD ADD-ON Performing Organization Address City/State/ZIP Code Phon e Number [facility] - [address] [place], [place] [address] [place] [address] First [facility] Ferritin (11/17/2019 9:29 AM CDT) P athologist Signature Ferritin, S 84 24 - 336 11/17/2019 DTL mcg/L 12:13 PM CDT Specimen Anatomical Collection Method Collection Time Receive d Time (Source) Location / / Volume Laterality Blood (Blood, 11/17/2019 9:29 AM 11/17/19 20 9:49 Venous) CDT AM CDT Joce Bailey M.D. LAB BLOOD ADD-ON Performing Organization Address City/State/ZIP Code Phon e Number [facility] - [address] [place], [place] [address] [facility] [place], [place] [address] [place] [address] First [facility] (ABNORMAL) Cystatin C with Estimated GFR, S (11/17/2019 9:29 AM CDT) P athologist Signature eGFR by 13 >60 11/17/2019 [facility] Cystatin C mL/min/BSA 10:47 AM CDT Comment: ----ADDITIONAL INFORMATION---- Cystatin C-based eGFR may differ substan tially from creatinine-based eGFR in patients with a bnormal muscle mass or acutely changing renal function. ??Pl ease interpret together with relevant clinical features. Cystatin C, S 3.71 (H) 0.77 - 1.42 mg/L 11/17/2019 10:47 AM CDT DAVE Specimen Anatomical Collection Method Collection Time Receive d Time (Source) Location / / Volume Laterality Blood (Blood, 11/17/2019 9:29 AM 11/17/19 20 Venous) CDT 10:30 AM CDT Joce Bailey M.D. LAB BLOOD ADD-ON Performing Organization Address City/State/ZIP Code Phon e Number [facility] - [address] [place], [place] [address] [place] [address] [facility] [address] (ABNORMAL) Renal Function Panel (11/17/2019 9:29 AM CDT) Analysis Performed At Patho logist Time Signature Potassium, S 3.7 3.6 - 5.2 11/17/2019 DTL mmol/L 11:37 AM CDT Sodium, S 138 135 - 145 11/17/2019 DTL mmol/L 11:37 AM CDT Chloride, S 99 98 - 107 11/17/2019 DTL mmol/L 11:37 AM CDT Bicarbonate, S 26 22 - 29 11/17/2019 DTL mmol/L 11:37 AM CDT Anion Gap 13 7 - 15 11/17/2019 DTL 11:37 AM CDT BUN (Blood Urea 43 (H) 8 - 24 11/17/2019 DTL Nitrogen), S mg/dL 11:37 AM CDT Creatinine 2.66 (H) 0.74 - 11/17/2019 DTL 1.35 mg/dL 11:37 AM CDT eGFR-Non 24 (L) >=60 11/17/2019 DTL Black/ mL/min/BSA 11:37 AM CDT [place] Comment: ----ADDITIONAL INFORMATION---- Estimated GFR calculated using the 2009 CKD_EPI creatinine equation. eGFR-Black/ 28 (L) >=60 mL/min/BSA 2019 11:37 AM CDT DTL Comment: ----ADDITIONAL INFORMATION---- Estimated GFR calculated using the 2009 CKD_EPI creatinine equation. Calcium, Total, S 8.6 (L) 8.8 - 10.2 mg/dL 11/17/2019 11:3 7 AM CDT DTL Glucose, S 116 70 - 140 mg/dL 11/17/2019 11:37 AM CDT DTL Albumin, S 3.9 3.5 - 5.0 g/dL 11/17/2019 11:37 AM CDT DTL Phosphorus (Inorganic), S 3.9 2.5 - 4.5 mg/dL 11/17/19 2:52 PM CDT DTL Specimen Anatomical Collection Method Collection Time Receive d Time (Source) Location / / Volume Laterality Blood (Blood, 11/17/2019 9:29 AM 11/17/19 9:49 Venous) CDT AM CDT Joce Baiely M.D. LAB BLOOD ADD-ON Performing Organization Address City/State/ZIP Code Phon e Number [facility] - [facility] [address] [place], [place] [address] [facility] [place] [address] [facility] 200 [facility] Mononucleosis RNA/DNA (11/17/2019 9:28 AM CDT) Analysis Performed At Patho logist Time Signature Beckham RNA/DNA Collected DEFAULT 11/17/2019 [facility]SS EDTA x 2 9:28 AM CDT Beckham RNA/DNA Collected DEFAULT 11/17/2019 [facility]SS NaHep 9:28 AM CDT Specimen Anatomical Collection Method Collection Time Receive d Time (Source) Location / / Volume Laterality Blood (Blood, 11/17/2019 9:28 AM 11/17/19 9:28 Venous) CDT AM CDT Narrative [facility] - [facility] - 11/17/2019 9:28 AM CDT Specimen Information: Specimen ID: [id number] Specimen Type: Blood Specimen Collection Start Date: 11/17/19 ??9:28 AM Specimen Received Date: 11/17/2019 ??9:2 8 AM Specimen ID: [id number] Specimen Type: Blood Specimen Collection Start Date: 11/17/19 ??9:28 AM Specimen Received Date: 11/17/2019 ??9:2 8 AM Specimen ID: [id number] Specimen Type: Blood Specimen Collection Start Date: 11/17/19 ??9:28 AM Specimen Received Date: 11/17/2019 ??9:2 8 AM Angélica Granger P.A.-C. LAB BLOOD NON ADD-ON Performing Organization Address City/[facility] Phon e Number [facility] - 200 [place] [address] Organ Liver TX (11/17/2019 9:28 AM CDT) Analysis Performed At Patho logist Time Signature Organ Liver TX Collected DEFAULT 11/17/2019 HS 9:28 AM CDT Specimen Anatomical Collection Method Collection Time Receive d Time (Source) Location / / Volume Laterality Blood (Blood, 11/17/2019 9:28 AM 11/17/19 9:28 Venous) CDT AM CDT Angélica Granger P.A.-C. LAB BLOOD NON ADD-ON Performing Organization Address City/[facility] Phon e Number [facility] - [address] Prothrombin Time (PT) (11/17/2019 9:28 AM CDT) P athologist Signature Prothrombin 11.6 9.4 - 12.5 11/17/2019 DTL Time, P sec 10:17 AM CDT INR 1.1 0.9 - 1.1 11/17/2019 DTL 10:17 AM CDT Comment: ----ADDITIONAL INFORMATION---- Standard intensity warfarin therapeutic range: 2.0 to 3.0 ?? High intensity warfarin therapeutic rang e: 2.5 to 3.5 Specimen Anatomical Collection Method Collection Time Receive d Time (Source) Location / / Volume Laterality Blood (Blood, 11/17/2019 9:28 AM 11/17/19 9:49 Venous) CDT AM CDT Angélica Granger P.A.-C. LAB BLOOD ADD-ON Performing Organization Address City/State/[facility] Phon e Number [facility] - [address] [place], [place] [address] [place] [id number] [place] [address] [address] [facility] (ABNORMAL) Lipid Panel (11/17/2019 9:28 AM CDT) athologist Signature Cholesterol, 135 mg/dL 11/17/2019 DTL Total 11:56 AM CDT Comment: ----REFERENCE VALUE---- Desirable: < 200 Borderline high: 200 - 239 High: > or = 240 Triglycerides 182 (H) mg/dL 11/17/2019 11:56 AM CDT DT L Comment: ----REFERENCE VALUE---- Normal: <150 Borderline high: 150-199 High: 200-499 Very high: > or =500 Cholesterol, HDL, S 35 (L) >=40 mg/dL 11/17/2019 11:56 AM CDT DTL Calculated LDL 64 mg/dL 11/17/2019 11:56 AM CDT D TL Comment: ----REFERENCE VALUE---- Desirable: <100 Above Desirable: 100-129 Borderline high: 130-159 High: 160-189 Very high: > or =190 Cholesterol, Non-HDL, Calculated 100 mg/dL 020 11:56 AM CDT DTL Comment: ----REFERENCE VALUE---- Desirable: <130 Above Desirable: 130-159 Borderline high: 160-189 High: 190-219 Very high: > or =220 Specimen Anatomical Collection Method Collection Time Receive d Time (Source) Location / / Volume Laterality Blood (Blood, 11/17/2019 9:28 AM 11/17/19 20 9:49 Venous) CDT AM CDT Angélica Granger P.A.-C. LAB BLOOD ADD-ON Performing Organization Address City/[facility] Phon e Number [facility] - [address] [place], [place] [address] [facility] [place] [address] [facility] [address] Bilirubin, Direct (11/17/2019 9:28 AM CDT) athologist Signature Bilirubin, <0.2 0.0 - 0.3 11/17/2019 DTL Direct, S mg/dL 11:56 AM CDT Specimen Anatomical Collection Method Collection Time Receive d Time (Source) Location / / Volume Laterality Blood (Blood, 11/17/2019 9:28 AM 11/17/19 9:49 Venous) CDT AM CDT Angélica Granger P.A.-C. LAB BLOOD ADD-ON Performing Organization Address City/[facility] Phon e Number [facility] - [address] (ABNORMAL) Iron and Total Iron-Binding Capacity (11/17/2019 9:28 AM CDT) athologist Signature Iron 58 50 - 150 11/17/2019 DTL mcg/dL 11:56 AM CDT Total Iron 237 (L) 250 - 400 11/17/2019 DTL Binding mcg/dL 11:56 AM CDT Capacity Percent 24 14 - 50 % 11/17/2019 DTL Saturation 11:56 AM CDT Specimen Anatomical Collection Method Collection Time Receive d Time (Source) Location / / Volume Laterality Blood (Blood, 11/17/2019 9:28 AM 11/17/19 9:49 Venous) CDT AM CDT Joce Bailey M.D. LAB BLOOD ADD-ON Performing Organization Address City/[facility] Phon e Number [facility] - [address] documented in this encounter Visit Diagnoses Diagnosis Chronic Kidney Disease Stage 4 Glomerula r Filtration Rate 15-29 (HCC) Transplant Liver (HCC) Medication Therapy Detention Not Anticoa gulant Chronic Kidney Disease Osteoporosis Screening Examination Prostate Cancer documented in this encounter Additional Health Concerns Assessment Noted Time PHQ-9 Depression Total Score: 5 03/02/2019 10:51 AM CD T documented as of this encounter Care Teams Cowlman Relationship Specialty Start Date End Date Elsewhere, Pcp PCP - General Family Medicine 07/29/17 documented as of this encounter
--- OUTSIDE RECORDS SUMMARY | 2022-04-13 12:29 | XMS_ITS | Encounter Summary ---
:1955 Author Organization [facility] Address [address] [place] [address] Care Team Providers Name Role Phone Elsewhere, Pcp Primary Care Provider Unavailable Encounter Details Date Type Department Care Team Description 11/17/2019 Hospital Encounter Department of [facility], Chronic Kidney Disease Stage 4 Glomerular Filtration Rate 15-29 (HCC); Laboratory Medicine Sada Hobson Transplant Liver (HCC); and Pathology, [address] [place] [address] Medication Therapy Garment Mender [facility] [id number] [place] [phone] [address] [facility] (Work) [place], [place] [phone] (Fax) [phone] Social History Tobacco Use Types Packs/Day Years [...] at Date Recorded Male 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 Medication Therapy Chcf Not Anticoagulant tacrolimus (PROGRAF) 0.5 Take 2 capsules (1 360 capsule 3 07/20/2020 mg capsuleIndications: mg total) by mouth Transplant Liver ([facility]), 2 (two) times a Medication Therapy [...] Laboratory Medicine Angélica Granger P.A.-C. [address] [place] [phone] 04/25/2022 Office Visit Otorhinolaryngology Dex Matta APRN, C.N.P., M.S.N. [address] [place] [phone] 05/08/2022 Appointment Laboratory Medicine Angélica Granger P.A.-C. [address] [place] [phone] 05/08/2022 Clinical Admitting/Central Communication Scheduling 05/10/2022 Appointment Radiology Jeremie Rose M.D. [address] [place] [phone] 05/10/2022 Comprehensive Visit Orthopedic Surgery Warner Graves M.D. [address] [place] [phone] 05/22/2022 Appointment Laboratory Medicine Angélica Granger P.A.-C. [address] [place] [phone] 06/05/2022 Appointment Laboratory Medicine Angélica Granger P.A.-C. [address] [place] [phone] 06/19/2022 Appointment Laboratory Medicine Angélica Granger P.A.-C. [address] [place] [phone] 07/03/2022 Appointment Laboratory Medicine Angélica Granger P.A.-C. [address] [place] [phone] 07/17/2022 Appointment Laboratory Medicine Angélica Granger P.A.-C. [address] [place] [phone] 07/31/2022 Appointment Laboratory Medicine Angélica Granger P.A.-C. [address] [place] [phone] 08/14/2022 Appointment Laboratory Medicine Angélica Granger P.A.-C. [address] [place] [phone] 08/28/2022 Appointment Laboratory Medicine Angélica Granger P.A.-C. [address] [place] [phone] documented as of this encounter Procedures Procedure Name Priority Date/Time Associated Comments Diagnosis MICROSCOPIC AUTOMATED Routine 11/17/2019 9:50 AM Results for this CDT procedure are i n the results section. ALBUMIN, RANDOM, U Routine 11/17/2019 9:50 AM Chronic Kidney R esults for this CDT Disease Stage 4 procedure ar e in Glomerular the results Filtration Rate section. 15 ([facility]) URINALYSIS WITH Routine 11/17/2019 9:50 AM Chronic Kidney Resu lts for this MICROSCOPIC CDT Disease Stage 4 procedure ar e in Glomerular the results Filtration Rate section. 15 (HCC) documented in this encounter Results Microscopic Automated (11/17/2019 9:50 AM CDT) athologist Signature Microscopy Normal 11/17/2019 DAVE 10:58 AM CDT Crystals SEE COMMENT 11/17/2019 DAVE 10:58 AM CDT Comment: Calcium Oxalate crystals presen t Specimen Anatomical Collection Method Collection Time Receive d Time (Source) Location / / Volume Laterality Urine 11/17/2019 9:50 AM 0 9:50 CDT AM CDT Joce Bailey M.D. LAB URINE ORDERABLES Performing Organization Address City/[facility]/ZIP Code Phon e Number [facility] - [address] [place], [place] [address] [place] [address] [address] (ABNORMAL) Albumin, Random, Urine (11/17/2019 9:50 AM CDT) athologist Signature Albumin, 202.6 mg/L 11/17/2019 DAVE Random, U 10:38 AM CDT Comment: ----ADDITIONAL INFORMATION---- This test has been modified from the man ufacturer's instructions. Its performance characteri stics were determined by [facility] in a manner co nsistent with CLIA requirements. This test has not bee n cleared or approved by the U.S. Food and Drug Admin istration. Creatinine 91 mg/dL 11/17/2019 10:38 AM CDT DAVE Albumin/Creatinine Ratio 223 (H) <17 mg/g 11/17/2019 10:3 8 AM CDT DAVE Specimen Anatomical Collection Method Collection Time Receive d Time (Source) Location / / Volume Laterality Urine (Urine, 11/17/2019 9:50 AM 11/17/19 20 9:50 Voided) CDT AM CDT Joce Bailey M.D. LAB URINE ORDERABLES Performing Organization Address City/State/ZIP Code Phon e Number [facility] - [address] [place], [place] [address] [place] [address] (ABNORMAL) Urinalysis with Microscopic: Urine, Voided (11/17/2019 9:50 AM CDT) [facility] gist Method Time Signature Source Midstream 11/17/2019 DAVE 9:50 AM CDT Appearance Normal Normal 11/17/2019 DAVE 10:38 AM CDT Osmolality, U 368 150 - 1150 11/17/2019 DAVE mOsm/kg 11:16 AM CDT pH, U 6.0 4.5 - 8.0 11/17/2019 DAVE 11:16 AM CDT Comment: ----ADDITIONAL INFORMATION---- This test was developed and its performa nce characteristics determined by [facility] in a manner co nsistent with CLIA requirements. This test has not bee n cleared or approved by the U.S. Food and Drug Admin istration. Glucose 4 0 - 15 mg/dL 11/17/2019 10:38 AM CDT LAVON A Protein, U 37 (H) <26 mg/dL 11/17/2019 10:38 AM CDT DAVE Comment: ----ADDITIONAL INFORMATION---- On 12/17/2016 the total protein assay me thod changed resulting in approximately a 15% increase in prote in values. Protein/Osmolality 1.01 (H) <0.42 Ratio 11/17/2019 11:16 AM CDT DAVE Comment: ----ADDITIONAL INFORMATION---- On 12/17/2016 the total protein assay me thod changed resulting in approximately a 15% increase in prote in values. Predicted 24 Hr Protein 947 mg/24 h 11/17/2019 11:16 AM CDT DAVE Predicted Range 300-2982 mg/24 h 11/17/2019 11:16 AM CDT DAVE Hemoglobin, QL Trace (A) Negative 11/17/2019 10:58 AM CDT R JOSE Specimen Anatomical Collection Method Collection Time Receive d Time (Source) Location / / Volume Laterality Urine (Urine, 11/17/2019 9:50 AM 11/17/19 20 9:50 Voided) CDT AM CDT Joce Bailey M.D. LAB URINE ORDERABLES Performing Organization Address City/State/ZIP Code Phon e Number [facility] - [address] [place], [place] [address] [facility] [place] [address] [address] documented in this encounter Visit Diagnoses Diagnosis Chronic Kidney Disease Stage 4 Glomerula r Filtration Rate 15-29 (HCC) Transplant Liver (HCC) Medication Therapy Chcf Not Anticoa gulant documented in this encounter Additional Health Concerns Assessment Noted Time PHQ-9 Depression Total Score: 5 03/02/2019 10:51 AM CD T documented as of this encounter Care Teams Cleaner Wall Relationship Specialty Start Date End Date Elsewhere, Pcp PCP - General Family Medicine 07/29/17 documented as of this encounter
--- OUTSIDE RECORDS SUMMARY | 2022-04-13 12:29 | XMS_ITS | Encounter Summary ---
:1955 Author Organization [facility] Address [address] [place] [address] Care Team Providers Name Role Phone Elsewhere, Pcp Primary Care Provider Unavailable Reason for Referral Outpatient (Routine) - Closed Specialty Diagnoses / Procedures Referred By Contact Refer red To Contact Nephrology and [facility] Hypertension Sada Hobson [address] [place] [phone] Referral ID Status Reason Start Date Expiration Date Visits Requ ested Visits Authorized [id number] Closed 11/17/2019 11/16/2020 1 1 Reason for Visit Appointment Request (Routine) - Closed Specialty Diagnoses / Procedures Referred By Contact Refer red To Contact Nephkanu and Anatoliy Bailey M.D. [address] [place] [phone] Referral ID Status Reason Start Date Expiration Date Visits Requ ested Visits Authorized [id number] Closed 11/16/2019 11/15/2020 1 1 Encounter Details Date Type Department Care Team Description 11/17/2019 Office Visit Division of Nephrology Mara Bailey surinder Kidney Disease and Hypertension in Sada Hobson Stage [address] Filtration Rate 15-29 [address] [place], [place] (HCC) (Primary Dx) [place] [phone] Social History Tobacco Use Types Packs/Day Years [...] Date Recorded Male 05/16/2020 4:27 PM STRIPPER OPAQUER documented as of this encounter Last Filed Vital Signs Vital Sign Reading Time Taken Comments Blood Pressure 128/72 11/17/2019 4:46 PM CDT Pulse 70 11/17/2019 4:46 PM CDT Temperature - - Respiratory Rate - - Oxygen Saturation - - Inhaled Oxygen Concentration - - Weight 76.1 kg (167 lb 12.3 oz) 11/17/2019 4:46 PM CDT Height 178.7 cm (5' 10.35) 11/17/2019 4:46 PM CDT Body Mass Index 23.83 11/17/2019 4:46 PM CDT documented in this encounter Progress Notes Joce Bailey M.D. - 11/17/2019 3:45 PM CDT SUBJECTIVE REASON FOR VISIT CHRONIC KIDNEY DISEASE [...] He also has significant arteriosclerosisand arteriolar hyalinosis, [id number]. Interstitial fibrosis with tubular atrophy affects approximately 30-40% of the sample cortex. He was last seen by me in 04/2019. Due to slow heart rate, carvedilol was discontinued and doxazosinwas reduced to 4 mg daily. Overall, he is feeling well and denies any complaints. His home blood pressure is about 130-135/70. His heart rate is usually 50-60 but seems to be higher after discontinuing carvedilol. He has less lightheadedness and fatigue. He is taking amlodipine 10 mg daily, torsemide 30 mg daily and doxazosin 4 mg at night. He states that he rarely misses the medication. He denies any chest pain, shortness of breath, palpitation, headache, leg swelling, nausea, vomiting, abdominal pain. He urinates 1-2 times at night. He drinks 6-8 glasses of water daily. He denies NSAID use. He lost about 10 lbs over 6 months. He had transplant evaluation in 03/2018. He is currently listed inactive in the waiting list given eGFR above 20. He has already attended renal replacement therapy treatment option. The following portions of the patient's history [...] Prior to dental procedures 0 ??? aspirin [address] tablet Take [...] capsule by mouth daily. ??? doxazosin (CARDURA) 8 mg tablet TAKE 1 TABLET(8 MG) BY MOUTH DAILY AT NIGHT (Patient taking differently: Take 4 mg by mouth every evening. ) 90 tablet 3 ??? fluticasone (FLONASE ALLERGY RELIEF) 50 mcg/actuation nasal spray Administer 1 spray into affected nostril(s) daily as needed. One to two sprays per nostril daily for allergies; mostly for fall allergies ??? lamoTRIgine (LaMICtal) 200 mg tablet TAKE [...] at bedtime as needed for sleep. Maintenance ??? aspirin (ASPIRIN CHILDRENS) 81 mg chewable tablet Chew daily. ??? doxazosin (CARDURA) 4 mg tablet Take 1 tablet (4 mg total) by mouth daily. (Patient not taking: Reported on 11/16/2019 ) 90 tablet 3 ??? glucosamine-chondroitin (GLUCOSAMINE-CHONDROITIN) 500-400 mg per capsule Take 4 capsules by mouth daily. ??? ipratropium (ATROVENT) 42 mcg (0.06 %) nasal spray Administer 2 sprays into affected nostril(s) 4 (four) times a day as needed for rhinitis. Maintenance No current facility-administered medications for this visit. OBJECTIVE VITAL SIGNS BP 128/72 Pulse 70 Ht 178.7 cm Wt 76.1 kg BMI 23.83 kg/m?? Cardiovascular Rate and Rhythm: Normal rate [...] follows: Lab Results Component Value Date CREATININE 2.66 (H) 11/17/2019 CREATININE 2.66 (H) 11/17/2019 BUN 43 (H) 11/17/2019 BUN 43 (H) 11/17/2019 NA 138 11/17/2019 NA 138 11/17/2019 K 3.7 11/17/2019 K 3.7 11/17/2019 CL 99 11/17/2019 CL 99 11/17/2019 US kidney with doppler (02/10/2018) 1. Right renal artery stenosis, likely not significant changed. 2. Widely patent left renal artery stent. 3. 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 ASSESSMENT / PLAN 1. 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 Kidney biopsy in 2. Renal artery stenosis s/p left renal artery stent in 03/2017. 3. Hypertension 4. 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 On immunosuppression - MMF, tacrolimus, and prednison His creatine was 2.7, stable at baseline. GFR was 24 based on creatinine and 13 based on cystatin C.He has been listed for donor kidney transplant with inactive status given GFR > 20. He attended the renal replacement therapy session but he has not decided what type of dialysis he would like to pursue if he need dialysis. His blood pressure is well controlled. Target blood pressure < 130/80. Continue amlodipine 10 mg daily, torsemide 30 mg daily and doxazosin 4 mg at night. He follows low-salt and low to moderate protein diet. In addition, he does not appear to have edema and I consider to reduce torsemide dose to avoid volume depletion which enhance calcineurin nephrotoxicity. US in 11/17/2019 showed renal artery stenosis at right proximal renal artery with lower velocities from previous US, and widely patent left renal artery stent. There is no indication for renal revascularization. CKD management - anemia; Hb 10.1. iron study is well repleted. No Need for JORGE L or iron therapy for now - metabolic acidosis; HCO3 > 22. 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 - lipid; on atorvastatin He will see me again in 6 months Contact number: [phone] Joce Bailey M.D. documented in this encounter Plan of Treatment Upcoming Encounters Date Type Specialty Care Team Description 04/24/2022 Appointment Laboratory Medicine Angélica Granger P.A.-C. [address] [place] [phone] 04/25/2022 Office Visit Otorhinolaryngology Dex Matta, RAMONA, C.N.P., M.S.N. [address] [place] [phone] 05/08/2022 Appointment Laboratory Medicine Angélica Granger P.A.-C. [address] [place] [phone] 05/08/2022 Clinical Admitting/Central Communication Scheduling 05/10/2022 Appointment Radiology Jeremie Rose M.D. [address] [place] [phone] 05/10/2022 Comprehensive Visit Orthopedic Surgery Warner Graves M.D. [address] [place] [phone] 05/22/2022 Appointment Laboratory Medicine Angélica Granger P.A.-C. [address] [place] [phone] 06/05/2022 Appointment Laboratory Medicine Angélica Granger P.A.-C. [address] [place] [phone] 06/19/2022 Appointment Laboratory Medicine Angélica Granger P.A.-C. [address] [place] [phone] 07/03/2022 Appointment Laboratory Medicine Angélica Granger P.A.-C. [address] [place] [phone] 07/17/2022 Appointment Laboratory Medicine Angélica Granger P.A.-C. [address] [place] [phone] 07/31/2022 Appointment Laboratory Medicine Angélica Granger P.A.-C. [address] [place] [phone] 08/14/2022 Appointment Laboratory Medicine Angélica Granger P.A.-C. [address] [place] [phone] 08/28/2022 Appointment Laboratory Medicine Angélica Granger P.A.-C. [address] [place] [phone] Scheduled Referrals Name Type Priority Associated Order Schedule Diagnoses Nephrology and Outpatient Referral Routine Expect ed: Hypertension office 05/19/20 20 visit (clinic) (Approximate) , Expires: 11/16/2022 documented as of this encounter Results (ABNORMAL) Albumin, Random, Urine (05/02/2020 10:45 AM STRIPPER OPAQUER) Patholo gist Method Time Signature Microalbumin 1213.0 mg/L 05/02/2020 OWAT 3:01 PM STRIPPER OPAQUER Creatinine 71 mg/dL 05/02/2020 OW[place] 2:35 PM STRIPPER OPAQUER Albumin/Creatinin 1708 (H) <17 mg/g 05/02/2020 OW[place] e Ratio 3:01 PM STRIPPER OPAQUER Specimen Anatomical Collection Method Collection Time Receive d Time (Source) Location / / Volume Laterality Urine (Urine, 05/02/2020 10:45 05/02/2020 1:43 Voided) AM STRIPPER OPAQUER PM STRIPPER OPAQUER Joce Bailey M.D. LAB URINE ORDERABLES Performing Organization Address City/State/ZIP Code Phon e Number [facility]- [address] [place] [address] [facility] [place] [address] System in [place] [address] (ABNORMAL) Urinalysis with Microscopic: Urine, Voided (05/02/2020 10:45 AM STRIPPER OPAQUER) P athologist Signature Source Midstream 05/02/2020 FB60 11:03 AM STRIPPER OPAQUER Clarity Clear Clear 05/02/2020 FB60 11:03 AM STRIPPER OPAQUER Color Yellow 05/02/2020 FB60 11:03 AM STRIPPER OPAQUER Comment: ----REFERENCE VALUE---- Colorless Yellow Bhakti Blood Small (A) Negative 05/02/2020 11:03 AM STRIPPER OPAQUER FB60 Nitrite Negative Negative 05/02/2020 11:03 AM STRIPPER OPAQUER FB60 Leukocyte Esterase Negative Negative 05/02/2020 11:[address] FB60 Protein >=300 (A) mg/dL 05/02/2020 11:03 AM STRIPPER OPAQUER FB60 Comment: ----REFERENCE VALUE---- Negative Trace Glucose Negative Negative mg/dL 05/02/2020 11:03 AM STRIPPER OPAQUER F B60 Ketones, QI(U) Negative Negative mg/dL 05/02/2020 11:03 AM STRIPPER OPAQUER FB60 Bilirubin Negative Negative 05/02/2020 11:03 AM STRIPPER OPAQUER FB60 pH 7.0 5.0 - 8.0 05/02/2020 11:03 AM STRIPPER OPAQUER FB60 Specific [place] 1.020 1.001 - 1.035 05/02/2020 11:03 AM STRIPPER OPAQUER FB60 Urobilinogen 0.2 0.2 - 1.0 mg/dL 05/02/2020 11:[address] FB60 White Blood Cells None Seen /hpf 05/02/2020 11:03 AM CS T FB60 Comment: ----REFERENCE VALUE---- Males: 0-3 Females: 0-10 Unknown: 0-10 Red Blood Cells 3-10 (A) 0 - 2 /hpf 05/02/2020 11:03 AM STRIPPER OPAQUER FB60 Dysmorphic Red Blood Cells <=25 <=25 % 05/02/2020 11 :03 AM STRIPPER OPAQUER FB60 Hyaline Casts Occasional /lpf 05/02/2020 11:03 AM STRIPPER OPAQUER F B60 Specimen Anatomical Collection Method Collection Time Receive d Time (Source) Location / / Volume Laterality Urine (Urine, 05/02/2020 10:45 05/02/2020 Voided) AM STRIPPER OPAQUER 10:45 AM STRIPPER OPAQUER Joce Bailey M.D. LAB URINE ORDERABLES Performing Organization Address City/State/ZIP Code Phon e Number [facility]- [address] [place] [address] [facility] [address] [place] [address] System in [place] [address] 25-Hydroxyvitamin D2 and D3 (05/02/2020 10:40 AM STRIPPER OPAQUER) athologist Signature 25-Hydroxy D2 <4.0 ng/mL 05/04/2020 SDS 12:47 PM STRIPPER OPAQUER 25-Hydroxy D3 48 ng/mL 05/04/2020 SDSC 12:47 PM STRIPPER OPAQUER 25-Hydroxy D 48 ng/mL 05/04/2020 SDSC Total 12:47 PM STRIPPER OPAQUER Comment: ----REFERENCE VALUE---- 25-HYDROXY D TOTAL (D2+D3) Optimum level s in the healthy population are 20-50, patients with bone disease may benefit from higher levels within this r itzel. ----ADDITIONAL INFORMATION---- This test was developed and its performa nce characteristics determined by [facility] in a manner consistent with CLIA requirements. This test has not been cleared or approved by the U.S. Mer d and Drug Administration. Specimen Anatomical Collection Method Collection Time Receive d Time (Source) Location / / Volume Laterality Blood (Blood, 05/02/2020 10:40 05/03/2020 7:45 Venous) AM STRIPPER OPAQUER AM STRIPPER OPAQUER Joce Bailey M.D. LAB BLOOD ADD-ON Performing Organization Address City/State/ZIP Code Phon e Number [facility] [address] [place] [address] [place] [address] Laboratory Medicine and Pathology [address] [place] [address] Dr. MURILLO (ABNORMAL) Uric Acid (05/02/2020 10:40 AM STRIPPER OPAQUER) athologist Signature Uric Acid, P 8.7 (H) 3.7 - 8.0 05/02/2020 AUST mg/dL 4:17 PM STRIPPER OPAQUER Specimen Anatomical Collection Method Collection Time Receive d Time (Source) Location / / Volume Laterality Blood (Blood, 05/02/2020 10:40 05/02/2020 4:04 Venous) AM STRIPPER OPAQUER PM STRIPPER OPAQUER Joce Bailey M.D. LAB BLOOD ADD-ON Performing Organization Address City/State/ZIP Code Phon e Number [facility]- [address] [place] [address] [facility] [place] [address] [facility] [address] (ABNORMAL) Parathyroid Hormone (PTH) (05/02/2020 10:40 AM STRIPPER OPAQUER) Analysis Performed At Patho logist Time Signature Parathyroid 135 (H) 15 - 65 05/02/2020 [place]UST Hormone (PTH), S pg/mL 5:07 PM STRIPPER OPAQUER Comment: Biotin has been identified by the [facility] as a potential interfering substance. ??Higher concentr ations of biotin may be found in multivitamins, hair/nail supple ments, and workout supplements. ??If the result does not [facility] clinical observations, repeat testing after patient refrains fr om the use of supplements for at least 12 hours. Specimen Anatomical Collection Method Collection Time Receive d Time (Source) Location / / Volume Laterality Blood (Blood, 05/02/2020 10:40 05/02/2020 4:04 Venous) AM STRIPPER OPAQUER PM STRIPPER OPAQUER Joce Bailey M.D. LAB BLOOD ADD-ON Performing Organization Address City/[facility]/ZIP Code Phon e Number [facility]- [address] [place] [address] [facility] [place], [place] [id number] [place] [address] (ABNORMAL) Magnesium (05/02/2020 10:40 AM STRIPPER OPAQUER) P athologist Signature Magnesium, P 2.9 (H) 1.7 - 2.3 05/02/2020 [place] mg/dL 2:28 PM STRIPPER OPAQUER Specimen Anatomical Collection Method Collection Time Receive d Time (Source) Location / / Volume Laterality Blood (Blood, 05/02/2020 10:40 05/02/2020 1:49 Venous) AM STRIPPER OPAQUER PM STRIPPER OPAQUER Joce Bailey M.D. LAB BLOOD ADD-ON Performing Organization Address City/State/ZIP Code Phon e Number [facility]- [address] [place] [address] [facility] [place] [address] System in [place] [address] Lipid Panel (05/02/2020 10:40 AM STRIPPER OPAQUER) P athologist Signature Cholesterol, 163 mg/dL 05/02/2020 [place] Total 2:28 PM STRIPPER OPAQUER Comment: ----REFERENCE VALUE---- Desirable: < 200 Borderline high: 200 - 239 High: > or = 240 Triglycerides 145 mg/dL 05/02/2020 2:28 PM STRIPPER OPAQUER OWA T Comment: ----REFERENCE VALUE---- Normal: <150 Borderline high: 150-199 High: 200-499 Very high: > or =500 Cholesterol, HDL 42 >=40 mg/dL 05/02/2020 2:28 PM STRIPPER OPAQUER OW[place] Calculated LDL 92 mg/dL 05/02/2020 2:28 PM STRIPPER OPAQUER OW AT Comment: ----REFERENCE VALUE---- Desirable: <100 Above Desirable: 100-129 Borderline high: 130-159 High: 160-189 Very high: > or =190 Cholesterol, Non-HDL, Calculated 121 mg/dL 020 2:28 PM STRIPPER OPAQUER [facility] Comment: ----REFERENCE VALUE---- Desirable: <130 Above Desirable: 130-159 Borderline high: 160-189 High: 190-219 Very high: > or =220 Specimen Anatomical Collection Method Collection Time Receive d Time (Source) Location / / Volume Laterality Blood (Blood, 05/02/2020 10:40 05/02/2020 1:49 Venous) AM STRIPPER OPAQUER PM STRIPPER OPAQUER Joce Bailey M.D. LAB BLOOD ADD-ON Performing Organization Address City/State/ZIP Code Phon e Number [facility]- [address] [place] [address] [place] [address] System in [place] [address] (ABNORMAL) Cystatin C with Estimated GFR, S (05/02/2020 10:40 AM STRIPPER OPAQUER) P athologist Signature eGFR by 13 >60 05/03/2020 DAVE Cystatin C mL/min/BSA 7:49 AM STRIPPER OPAQUER Comment: ----ADDITIONAL INFORMATION---- Cystatin C-based eGFR may differ substan tially from creatinine-based eGFR in patients with a bnormal muscle mass or acutely changing renal function. ??Pl ease interpret together with relevant clinical features. Cystatin C, S 3.77 (H) 0.77 - 1.42 mg/L 05/03/2020 7:49 AM STRIPPER OPAQUER DAVE Specimen Anatomical Collection Method Collection Time Receive d Time (Source) Location / / Volume Laterality Blood (Blood, 05/02/2020 10:40 05/03/2020 6:57 Venous) AM STRIPPER OPAQUER AM STRIPPER OPAQUER Joce Bailey M.D. LAB BLOOD ADD-ON Performing Organization Address City/State/ZIP Code Phon e Number [facility] [address] [place], [place] [address] [facility] [place] [address] [facility] [address] (ABNORMAL) Renal Function Panel (05/02/2020 10:40 AM STRIPPER OPAQUER) Analysis Performed At Patho logist Time Signature Potassium, P 3.6 3.6 - 5.2 05/02/2020 [place] mmol/L 2:28 PM STRIPPER OPAQUER Sodium, P 136 135 - 145 05/02/2020 [place] mmol/L 2:28 PM STRIPPER OPAQUER Chloride, P 99 98 - 107 05/02/2020 [place] mmol/L 2:28 PM STRIPPER OPAQUER Bicarbonate, P 26 22 - 29 05/02/2020 [place] mmol/L 2:28 PM STRIPPER OPAQUER Anion Gap, P 11 7 - 15 05/02/2020 OWAT 2:28 PM STRIPPER OPAQUER BUN (Blood Urea 69 (H) 8 - 24 05/02/2020 OW[place] Nitrogen), P mg/dL 2:28 PM STRIPPER OPAQUER Creatinine 3.22 (H) 0.74 - 05/02/2020 [place] 1.35 mg/dL 2:28 PM STRIPPER OPAQUER eGFR-Black/Afri 22 (L) >=60 05/02/2020 [place] can [place] mL/min/BSA 2:28 PM STRIPPER OPAQUER Comment: ----ADDITIONAL INFORMATION---- Estimated GFR calculated using the 2009 CKD_EPI creatinine equation. eGFR Non-Black/ 19 (L) >=60 mL/min/BSA 05/02/2020 2:28 PM STRIPPER OPAQUER [place] Comment: ----ADDITIONAL INFORMATION---- Estimated GFR calculated using the 2009 CKD_EPI creatinine equation. Calcium, Total, P 8.5 (L) 8.8 - 10.2 mg/dL 05/02/2020 2:28 PM STRIPPER OPAQUER [place] Glucose, P 189 (H) 70 - 140 mg/dL 05/02/2020 2:28 PM STRIPPER OPAQUER O YAO Albumin, P 3.9 3.5 - 5.0 g/dL 05/02/2020 2:28 PM STRIPPER OPAQUER O YAO Phosphorus (Inorganic), P 4.1 2.5 - 4.5 mg/dL 05/02/20 20 4:17 PM STRIPPER OPAQUER AUST Specimen Anatomical Collection Method Collection Time Receive d Time (Source) Location / / Volume Laterality Blood (Blood, 05/02/2020 10:40 05/02/2020 1:49 Venous) AM STRIPPER OPAQUER PM STRIPPER OPAQUER Narrative [facility] - 05/02/2020 4:17 PM STRIPPER OPAQUER Specimen Information: Specimen ID: [id number] Specimen Type: Blood Specimen Collection Start Date: 020 10:40 AM Specimen Received Date: 05/02/2020 ??1: 49 PM Specimen ID: [id number] Specimen Type: Blood Specimen Collection Start Date: 020 10:40 AM Specimen Received Date: 05/02/2020 ??4: 04 PM Joce Bailey M.D. LAB BLOOD ADD-ON Performing Organization Address City/[facility]/ZIP Code Phon e Number [facility]- [address] [place] [address] [place] [address] System in [place] [address] [facility] [place], [place] [id number] [place] [address] Ferritin (05/02/2020 10:40 AM STRIPPER OPAQUER) P athologist Signature Ferritin, S 167 31 - 409 05/02/2020 [place] mcg/L 2:19 PM STRIPPER OPAQUER Comment: Biotin has been identified by the [facility] as a potential interfering substance. ??Higher concentr ations of biotin may be found in multivitamins, hair/nail supple ments, and workout supplements. ??If the result does not [facility] clinical observations, repeat testing after patient refrains fr om the use of supplements for at least 12 hours. Specimen Anatomical Collection Method Collection Time Receive d Time (Source) Location / / Volume Laterality Blood (Blood, 05/02/2020 10:40 05/02/2020 1:49 Venous) AM STRIPPER OPAQUER PM STRIPPER OPAQUER Joce Bailey M.D. LAB BLOOD ADD-ON Performing Organization Address City/State/ZIP Code Phon e Number [facility]- [address] [place] [address] [place] [address] System in [place] [address] Iron and Total Iron-Binding Capacity (05/02/2020 10:40 AM STRIPPER OPAQUER) P athologist Signature Iron 115 50 - 150 05/02/2020 [place]UST mcg/dL 4:18 PM STRIPPER OPAQUER Total Iron 255 250 - 400 05/02/2020 [place] Binding Capacity mcg/dL 4:18 PM STRIPPER OPAQUER Percent 45 14 - 50 % 05/02/2020 [place] Saturation 4:18 PM STRIPPER OPAQUER Specimen Anatomical Collection Method Collection Time Receive d Time (Source) Location / / Volume Laterality Blood (Blood, 05/02/2020 10:40 05/02/2020 4:04 Venous) AM STRIPPER OPAQUER PM STRIPPER OPAQUER Joce Bailey M.D. LAB BLOOD ADD-ON Performing Organization Address City/State/ZIP Code Phon e Number [facility]- [address] [place] [address] [facility] [place] [address] [facility] [address] (ABNORMAL) CBC with Differential, Blood (05/02/2020 10:40 AM STRIPPER OPAQUER) Patholo gist Method Time Signature Hemoglobin 11.5 (L) 13.2 - 05/02/2020 FB60 16.6 g/dL 10:45 AM STRIPPER OPAQUER Hematocrit 34.9 (L) 38.3 - 05/02/2020 FB60 48.6 % 10:45 AM STRIPPER OPAQUER Erythrocytes 3.88 (L) 4.35 - 05/02/2020 FB60 5.65 10:45 AM STRIPPER OPAQUER x10(12)/L MCV 89.9 78.2 - 05/02/2020 FB60 97.9 fL 10:45 AM STRIPPER OPAQUER RBC Distrib Width 13.0 11.8 - 05/02/2020 FB60 14.5 % 10:45 AM STRIPPER OPAQUER Platelet Count 206 135 - 317 05/02/2020 FB60 x10(9)/L 10:45 AM STRIPPER OPAQUER Leukocytes 3.6 3.4 - 9.6 05/02/2020 FB60 x10(9)/L 10:45 AM STRIPPER OPAQUER Neutrophils 1.95 1.56 - 05/02/2020 FB60 6.45 10:45 AM STRIPPER OPAQUER x10(9)/L Lymphocytes 1.04 0.95 - 05/02/2020 FB60 3.07 10:45 AM STRIPPER OPAQUER x10(9)/L Monocytes 0.45 0.26 - 05/02/2020 FB60 0.81 10:45 AM STRIPPER OPAQUER x10(9)/L Eosinophils 0.10 0.03 - 05/02/2020 FB60 0.48 10:45 AM STRIPPER OPAQUER x10(9)/L Basophils 0.01 0.01 - 05/02/2020 FB60 0.08 10:45 AM STRIPPER OPAQUER x10(9)/L Specimen Anatomical Collection Method Collection Time Receive d Time (Source) Location / / Volume Laterality Blood (Blood, 05/02/2020 10:40 05/02/2020 Venous) AM STRIPPER OPAQUER 10:40 AM STRIPPER OPAQUER Joce aBiley M.D. LAB BLOOD ADD-ON Performing Organization Address City/State/ZIP Code Phon e Number [facility]- [address] [place] [address] [address] [place], [place] [id number] [place] [address] LAB [address] [place] [address] [address] documented in this encounter Visit [...] documented as of this encounter Care Teams Gyroscopic Engineering Technician Relationship Specialty Start Date End Date Elsewhere, Pcp PCP - General Family Medicine 07/29/17 documented as of this encounter
--- OUTSIDE RECORDS SUMMARY | 2022-04-13 12:29 | XMS_ITS | Encounter Summary ---
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 [address] [place] [phone] 04/25/2022 Office Visit Otorhinolaryngology Dex Matta APRN, C.N.P., M.S.N. [address] [place] [phone] 05/08/2022 Appointment Laboratory Medicine Angélica Granger P.A.-C. [address] [place] [phone] 05/08/2022 Clinical Admitting/Central Communication Scheduling 05/10/2022 Appointment Radiology Jeremie Rose M.D. [address] [place] [phone] 05/10/2022 Comprehensive Visit Orthopedic Surgery Warner Graves M.D. [address] [place] [phone] 05/22/2022 Appointment Laboratory Medicine Angélica Granger P.A.-C. [address] [place] [phone] 06/05/2022 Appointment Laboratory Medicine Angélica Granger P.A.-C. [address] [place] [address] [phone] 06/19/2022 Appointment Laboratory Medicine Angélica Granger P.A.-C. [address] [place] [phone] 07/03/2022 Appointment Laboratory Medicine Angélica Granger P.A.-C. [address] [place] [address] [phone] 07/17/2022 Appointment Laboratory Medicine Angélica Granger P.A.-C. [address] [place] [address] [phone] 07/31/2022 Appointment Laboratory Medicine Angélica Granger P.A.-C. [address] [place] [phone] 08/14/2022 Appointment Laboratory Medicine Angélica Granger P.A.-C. [address] [place] [phone] 08/28/2022 Appointment Laboratory Angélica Royal P.A.-C. [address] [place] [address] [phone] documented as of this encounter Visit Diagnoses Not on filedocumented in this encounter Additional Health Concerns Assessment Noted Time PHQ-9 Depression Total Score: 5 03/02/2019 10:51 AM CD T documented as of this encounter Care Teams Carpenter Maintenance Relationship Specialty Start Date End Date Elsewhere, Pcp PCP - General Family Medicine 07/29/17 documented as of this encounter
--- OUTSIDE RECORDS SUMMARY | 2022-04-13 12:29 | XMS_ITS | Encounter Summary ---
:1955 Author Organization [facility] Address [address] [place] [address] Care Team Providers Name Role Phone Elsewhere, Pcp Primary Care Provider Unavailable Reason for Visit Reason Comments Med Refill Encounter Details Date Type Department Care Team Description 08/31/2019 [facility] Salvador Camejo, Med Refill Transplantation and Clinical M.D . 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 [address] [place] [phone] 04/25/2022 Office Visit Otorhinolaryngology Dex Matta, RAMONA, C.N.P., M.S.N. [address] [place] [phone] 05/08/2022 Appointment Laboratory Medicine Angélica Granger, P.A.-C. [address] [place] [phone] 05/08/2022 Clinical Admitting/Central Communication Scheduling 05/10/2022 Appointment Radiology Jeremie Rose M.D. [address] [place] [phone] 05/10/2022 Comprehensive Visit Orthopedic Surgery Warner Graves M.D. [address] [place] [phone] 05/22/2022 Appointment Laboratory Medicine Angélica Granger P.A.-C. [address] [place] [phone] 06/05/2022 Appointment Laboratory Angélica Royal P.A.-C. [address] [place] [phone] 06/19/2022 Appointment Laboratory Angélica Royal P.A.-C. [address] [place] [phone] 07/03/2022 Appointment Laboratory Angélica Royal P.A.-C. [address] [place] [phone] 07/17/2022 Appointment Laboratory Angélica Royal P.A.-C. [address] [place] [phone] 07/31/2022 Appointment Laboratory Angélica Royal P.A.-C. [address] [place] [phone] 08/14/2022 Appointment Laboratory Angélica Royal P.A.-C. [address] [place] [phone] 08/28/2022 Appointment Laboratory Angélica Royal P.A.-C. [address] [place] [phone] documented as of this encounter Visit Diagnoses Not on filedocumented in this encounter Additional Health Concerns Assessment Noted Time PHQ-9 Depression Total Score: 5 03/02/2019 10:51 AM CD T documented as of this encounter Care Teams Transcription Manager Relationship Specialty Start Date End Date Elsewhere, Pcp PCP - General Family Medicine 07/29/17 documented as of this encounter
--- OUTSIDE RECORDS SUMMARY | 2022-04-13 12:29 | XMS_ITS | Encounter Summary ---
:1955 Author Organization [facility] Address [address] [place] [address] Care Team Providers Name Role Phone Elsewhere, Pcp Primary Care Provider Unavailable Encounter Details Date Type Department Care Team Description 07/26/2019 Clinical Communication Section of Preventive, Rita Garcia and M, R.N. 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 [address] [place] [phone] 04/25/2022 Office Visit Otorhinolaryngology Dex Matta APRN, C.N.P., M.S.N. [address] [place] [phone] 05/08/2022 Appointment Laboratory Medicine Angélica Granger P.A.-C. [address] [place] [phone] 05/08/2022 Clinical Admitting/Central Communication Scheduling 05/10/2022 Appointment Radiology Jeremie Rose M.D. [address] [place] [phone] 05/10/2022 Comprehensive Visit Orthopedic Surgery Warner Graves M.D. [address] [place] [phone] 05/22/2022 Appointment Laboratory Medicine Angélica Granger P.A.-C. [address] [place] [address] [phone] 06/05/2022 Appointment Laboratory Medicine Angélica Granger P.A.-C. [address] [place] [phone] 06/19/2022 Appointment Laboratory Medicine Angélica Granger P.A.-C. [address] [place] [phone] 07/03/2022 Appointment Laboratory Medicine Angélica Granger P.A.-C. [address] [place] [phone] 07/17/2022 Appointment Laboratory Medicine Angélica Granger P.A.-C. [address] [place] [phone] 07/31/2022 Appointment Laboratory Medicine Angélica Granger P.A.-C. [address] [place] [phone] 08/14/2022 Appointment Laboratory Angélica Royal P.A.-C. [address] [place] [phone] 08/28/2022 Appointment Laboratory Angélica Royal P.A.-C. [address] [place] [phone] documented as of this encounter Visit Diagnoses Not on filedocumented in this encounter Additional Health Concerns Assessment Noted Time PHQ-9 Depression Total Score: 5 03/02/2019 10:51 AM CD T documented as of this encounter Care Teams Communications Tower Technician Relationship Specialty Start Date End Date Elsewhere, Pcp PCP - General Family Medicine 07/29/17 documented as of this encounter
--- OUTSIDE RECORDS SUMMARY | 2022-04-13 12:29 | XMS_ITS | Encounter Summary ---
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 [address] [place] [phone] 04/25/2022 Office Visit Otorhinolaryngology Dex Matta APRN, C.N.P., M.S.N. [address] [place] [address] [phone] 05/08/2022 Appointment Laboratory Medicine Angélica Granger P.A.-CDemetrius [address] [place] [phone] 05/08/2022 Clinical Admitting/Central Communication Scheduling 05/10/2022 Appointment Radiology Jeremie Rose M.D. [address] [place] [phone] 05/10/2022 Comprehensive Visit Orthopedic Surgery Warner Graves M.D. [address] [place] [phone] 05/22/2022 Appointment Laboratory Medicine Angélica Granger P.A.-CDemetrius [address] [place] [phone] 06/05/2022 Appointment Laboratory Medicine Angélica Granger P.A.-C. [address] [place] [phone] 06/19/2022 Appointment Laboratory Medicine Angélica Granger P.A.-C. [address] [place] [phone] 07/03/2022 Appointment Laboratory Medicine Angélica Granger P.A.-C. [address] [place] [phone] 07/17/2022 Appointment Laboratory Medicine Angélica Granger P.A.-C. [address] [place] [phone] 07/31/2022 Appointment Laboratory Medicine Angélica Granger P.A.-C. [address] [place] [phone] 08/14/2022 Appointment Laboratory Angélica Royal P.A.-C. [address] [place] [phone] 08/28/2022 Appointment Laboratory Medicine Angélica Granger P.A.-C. [address] [place] [phone] documented as of this encounter Visit Diagnoses Diagnosis Hypertension Essential Primary documented in this encounter Additional Health Concerns Assessment Noted Time PHQ-9 Depression Total Score: 5 03/02/2019 10:51 AM CD T documented as of this encounter Care Teams Composition Roll Maker And Cutter Relationship Specialty Start Date End Date Elsewhere, Pcp PCP - General Family Medicine 07/29/17 documented as of this encounter
--- OUTSIDE RECORDS SUMMARY | 2022-04-13 12:29 | XMS_ITS | Encounter Summary ---
:1955 Author Organization [facility] Address [address] [place] [address] Care Team Providers Name Role Phone Elsewhere, Pcp Primary Care Provider Unavailable Reason for Visit Reason Onset Date Comments Labs Only 08/19/2019 Encounter Details Date Type Department Care Team Description 08/19/2019 Clinical Communication Curt Tayolr, Labs Only Center for Argelia Hernandez R.N., Transplantation and C.C.T.C. 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 - 08/19/2019 1:45 PM CST SUBJECTIVE CHIEF COMPLAINT / REASON FOR CALL Labs Only Information Discussed I called Bruce to tell him that after reviewing labs with Dr. Rossi, she recommends he continues on the same dose of 1mg BID and recheck labs in 1- 2 weeks. PLAN Disposition/Recommendation: self-care is appropriate at this time, patient encouraged to call back with questions Information/Education: patient/caller able to teach back Caller agreeable to plan of care: yes The following references were used: nursing clinical judgment and provider Dr. Rossi FICIAL STONE SETTER Telephone Encounter - Argelia Melendez R.N. - 08/19/2019 11:08 AM CST SUBJECTIVE CHIEF COMPLAINT / REASON FOR CALL Labs Only Information Discussed I called Bruce after responding to his POM regarding his concerns. He states that the tacrolimus level was a 15 hour trough and that last time he was on 1.5mg of tacrolimus his kidney function worsened. I did explain to him that his liver tests were likely not elevated from taking his medications a few hours later then normal. I told him that Dr. Rossi was told of his kidney function and that he is listed for a kidney and that she had still recommended increasing his dose due to 1.5mg BID due to his LFT's. I told him that I would re-review with Dr. Rossi and let him now she recommends anything different. Otherwise, he will plan to take 1.5 mg BID and check labs in one week. PLAN Disposition/Recommendation: notified provider and awaiting recommendations Information/Education: patient/caller able to teach back Caller agreeable to plan of care: yes The following references were used: nursing clinical judgment and Dr. Rossi FICIAL STONE SETTER documented in this encounter Plan of Treatment Upcoming Encounters Date Type Specialty Care Team Description 04/24/2022 Appointment Laboratory Medicine Angélica Granger P.A.-C. [address] [place] [phone] 04/25/2022 Office Visit Otorhinolaryngology Dex Matta APRN, C.N.P., M.S.N. [address] [place] [phone] 05/08/2022 Appointment Laboratory Medicine Angélica Granger P.A.-C. [address] [place] [phone] 05/08/2022 Clinical Admitting/Central Communication Scheduling 05/10/2022 Appointment Radiology Jeremie Rose M.D. [address] [place] [phone] 05/10/2022 Comprehensive Visit Orthopedic Surgery Warner Graves M.D. [address] [place] [phone] 05/22/2022 Appointment Laboratory Medicine Angélica Granger P.A.-C. [address] [place] [phone] 06/05/2022 Appointment Laboratory Medicine Angélica Granger P.A.-C. [address] [place] [phone] 06/19/2022 Appointment Laboratory Medicine Angélica Granger P.A.-C. [address] [place] [phone] 07/03/2022 Appointment Laboratory Medicine Angélica Granger P.A.-C. [address] [place] [phone] 07/17/2022 Appointment Laboratory Medicine Angélica Granger P.A.-C. [address] [place] [phone] 07/31/2022 Appointment Laboratory Medicine Angélica Granger P.A.-C. [address] [place] [phone] 08/14/2022 Appointment Laboratory Angélica Royal P.A.-C. [address] [place] [phone] 08/28/2022 Appointment Laboratory Angélica Royal P.A.-C. [address] [place] [phone] documented as of this encounter Visit Diagnoses Not on filedocumented in this encounter Additional Health Concerns Assessment Noted Time PHQ-9 Depression Total Score: 5 03/02/2019 10:51 AM CD T documented as of this encounter Care Teams Oil Tank Car Cleaner Relationship Specialty Start Date End Date Elsewhere, Pcp PCP - General Family Medicine 07/29/17 documented as of this encounter
--- OUTSIDE RECORDS SUMMARY | 2022-04-13 12:29 | XMS_ITS | Encounter Summary ---
:1955 Author Organization [facility] Address [address] [place] [address] Care Team Providers Name Role Phone Elsewhere, Pcp Primary Care Provider Unavailable Reason for Visit Reason Comments COVID Nurse Line Encounter Details Date Type Department Care Team Description 11/16/2019 Clinical Communication Division of BHUMI Bailey Nurse Makayla Nephrology and Sada Hobson Hypertension in [address] [place], [place] [address] [place] [phone] [place], [place] [phone] (Work) [phone] Social History Tobacco Use Types Packs/Day Years [...] Date Recorded 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 Do you have a [...] last 14 days? no Route reply to: joanna arambula b desk Scheduling Contact Number:[phone] documented in this encounter Plan of Treatment Upcoming Encounters Date Type Specialty Care Team Description 04/24/2022 Appointment Laboratory Medicine Angélica Granger P.A.-C. [address] [place] [phone] 04/25/2022 Office Visit Otorhinolaryngology Dex Matta APRN C.NDemetriusP., M.S.N. [address] [place] [phone] 05/08/2022 Appointment Laboratory Medicine Angélica Granger P.A.-C. [address] [place] [phone] 05/08/2022 Clinical Admitting/Central Communication Scheduling 05/10/2022 Appointment Radiology Jeremie Rose M.D. [address] [place] [address] [phone] 05/10/2022 Comprehensive Visit Orthopedic Surgery Warner Graves M.D. [address] [place] [address] [phone] 05/22/2022 Appointment Laboratory Medicine Angélica Granger P.A.-C. [address] [place] [address] [phone] 06/05/2022 Appointment Laboratory Medicine Angélica Granger P.A.-C. [address] [place] [address] [phone] 06/19/2022 Appointment Laboratory Medicine Angélica Granger P.A.-C. [address] [place] [address] [phone] 07/03/2022 Appointment Laboratory Medicine Angélica Granger P.A.-C. [address] [place] [phone] 07/17/2022 Appointment Laboratory Medicine Angélica Granger P.A.-C. [address] [place] [phone] 07/31/2022 Appointment Laboratory Medicine Angélica Granger P.A.-C. [address] [place] [phone] 08/14/2022 Appointment Laboratory Medicine Angélica Granger P.A.-C. [address] [place] [phone] 08/28/2022 Appointment Laboratory Medicine Angélica Granger P.A.-C. [address] [place] [phone] documented as of this encounter Visit Diagnoses Not on filedocumented in this encounter Additional Health Concerns Assessment Noted Time PHQ-9 Depression Total Score: 5 03/02/2019 10:51 AM CD T documented as of this encounter Care Teams Balance Staff Inspector Relationship Specialty Start Date End Date Elsewhere, Pcp PCP - General Family Medicine 07/29/17 documented as of this encounter
--- OUTSIDE RECORDS SUMMARY | 2022-04-13 12:29 | XMS_ITS | Encounter Summary ---
:1955 Author Organization [facility] Address [address] [place] [address] Care Team Providers Name Role Phone Elsewhere, Pcp Primary Care Provider Unavailable Reason for Visit Reason Onset Date Comments telephone 08/16/2019 new orders needed Encounter Details Date Type Department Care Team Description 08/16/2019 Clinical Curt Dove, tele one (new Communication Center for Blanca Bonny, orders needed ) Transplantation and R.N. 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 - 08/18/2019 9:59 AM FELL CUTTER SUBJECTIVE CHIEF COMPLAINT / REASON FOR CALL telephone (new orders needed ) Information Discussed I talked with Tomeka from the [facility] in [place], [place] because I wanted to verify that Bruce's tacrolimus trough was a true 12 hour trough as it came back at <2.0. [facility] is no longer drawing [facility] kits so the tacrolimus levels will very. She states that it was a 12 hour trough as he came in at his normal time. His liver function tests are slightly elevated so I will be reviewing his labs with Dr. Wolfe and I will send Bruce an online portal message with his recommendations. PLAN Disposition/Recommendation: notified provider and awaiting recommendations Information/Education: patient/caller able to teach back Caller agreeable to plan of care: yes The following references were used: nursing clinical judgment CUTTER Telephone Encounter - Mateo Rodríguez - 08/18/2019 9:49 AM CST Tena called back regarding voice message that was left by Blanca(I see no call was documented?) She is faxing over information on this. Please call her back with any questions. CUTTER Telephone Encounter - Blanca Canales R.N. - 08/16/2019 1:48 PM FELL CUTTER New standing lab order has been faxed CUTTER Telephone Encounter - Jessica Dolan - 08/16/2019 12:11 PM CST Tomeka calling from [facility]. They are in need an updated order for this patient for Prograf forfuture. They no longer accept the kits that that patient has. The fax number is [phone]. CUTTER documented in this encounter Plan of Treatment Upcoming Encounters Date Type Specialty Care Team Description 04/24/2022 Appointment Laboratory Medicine Angélica Granger P.A.-C. [address] [place] [phone] 04/25/2022 Office Visit Otorhinolaryngology Dex Matta, BOX BLANK MACHINE FEEDER, C.N.P., M.S.N. [address] [place] [phone] 05/08/2022 Appointment Laboratory Medicine Angélica Granger P.A.-CDemetrius [address] [place] [address] [phone] 05/08/2022 Clinical Admitting/Central Communication Scheduling 05/10/2022 Appointment Radiology Jeremie Rose M.D. [address] [place] [phone] 05/10/2022 Comprehensive Visit Orthopedic Surgery Warner Graves M.D. [address] [place] [address] [phone] 05/22/2022 Appointment Laboratory Medicine Angélica Granger P.A.-C. [address] [place] [phone] 06/05/2022 Appointment Laboratory Medicine Angélica Granger P.A.-C. [address] [place] [phone] 06/19/2022 Appointment Laboratory Medicine Angélica Granger P.A.-C. [address] [place] [phone] 07/03/2022 Appointment Laboratory Medicine Angélica Granger P.A.-C. [address] [place] [phone] 07/17/2022 Appointment Laboratory Medicine Angélica Granger P.A.-C. [address] [place] [phone] 07/31/2022 Appointment Laboratory Medicine Angélica Granger P.A.-C. [address] [place] [phone] 08/14/2022 Appointment Laboratory Angélica Royal P.A.-C. [address] [place] [phone] 08/28/2022 Appointment Laboratory Medicine Angélica Granger P.A.-C. [address] [place] [phone] documented as of this encounter Visit Diagnoses Not on filedocumented in this encounter Additional Health Concerns Assessment Noted Time PHQ-9 Depression Total Score: 5 03/02/2019 10:51 AM CD T documented as of this encounter Care Teams Patient Clerical Assistant Relationship Specialty Start Date End Date Elsewhere, Pcp PCP - General Family Medicine 07/29/17 documented as of this encounter
--- OUTSIDE RECORDS SUMMARY | 2022-04-13 12:30 | XMS_ITS | Encounter Summary ---
:1955 Author Organization [facility] Address [address] [place] [address] Care Team Providers Name Role Phone Elsewhere, Pcp Primary Care Provider Unavailable Encounter Details Date Type Department Care Team Description 04/19/2019 Hospital Encounter Department of Angélica Granger Liver Laboratory Medicine Edmundo Stern (HCC) and Pathology, [address] [place] [address] in [place], [place] [address] [place] [address] [place], [place] (Work) [address] [phone] Social History Tobacco Use Types Packs/Day Years [...] Date Recorded Male 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 amLODIPine (NORVASC) 10 TAKE 1 TABLET BY 100 tablet 3 201706/07/2019 mg tablet MOUTH DAILY atorvastatin (LIPITOR) TAKE 1 TABLET(10 90 tablet 0 019 06/14/2019 10 mg tablet MG) BY MOUTH DAILY CALCIUM-MAGNESIUM ORAL Take 2 capsules by 0 08/1905/04/2020 mouth 2 (two) times a day. 400mg calcium twice daily carvedilol (COREG) 3.125 Take 1 tablet 180 tablet 3 03/01/20 19 05/13/2019 mg tabletIndications: (3.125 mg total) by Hypertension And Chronic mouth 2 (two) times Kidney Disease Stage 1 a day with meals. To 4 cholecalciferol (VITAMIN Take 1 tablet by 0 09/0311/13/2020 D3) 2,000 Unit tablet mouth daily. cholecalciferol (VITAMIN Take 1 capsule by 0 02/2105/24/2021 D3) 50 mcg (2,000 Unit) mouth daily. capsule doxazosin (CARDURA) 8 mg TAKE 1 TABLET(8 MG) 90 tablet 1 06/04/2019 tabletIndications: BY MOUTH DAILY AT Hypertension Essential NIGHT Primary fluticasone (FLONASE Administer 1 spray 0 017 02/07/2020 ALLERGY RELIEF) 50 into affected mcg/actuation nasal nostril(s) daily as spray needed. One to two sprays per nostril daily for allergies; mostly for fall allergies glucosamine-chondroitin Take 4 capsules by 0 05/22/2020 (GLUCOSAMINE-CHONDROITIN mouth daily. ) 500-400 mg per capsule ipratropium (ATROVENT) Administer 2 sprays 0 07/201611/13/2020 42 mcg (0.06 %) nasal into affected spray nostril(s) 4 (four) times a day as needed for rhinitis. Maintenance lamoTRIgine (LaMICtal) TAKE 1 TABLET BY 200 tablet 3 019 09/01/2019 200 mg tablet MOUTH TWICE DAILY levothyroxine Take 1 tablet (25 90 tablet 3 12/21/201802/2020 (SYNTHROID, LEVOTHROID) mcg total) by mouth 25 mcg tablet every morning before breakfast. multivitamin tablet Take 1 tablet by 0 06/18/2013 10/12/2021 mouth daily. Maintenance mycophenolate (CELLCEPT) TAKE 1 TABLET BY 180 tablet 3 12/1011/22/2019 500 mg MOUTH TWICE DAILY tabletIndications: Transplant Liver (HCC) predniSONE (DELTASONE) 5 TAKE 1 TABLET BY 90 tablet 3 08/0507/26/2019 mg tablet MOUTH DAILY tacrolimus (PROGRAF) 0.5 TAKE 2 CAPSULES BY 360 capsule 3 07/26/2019 mg capsuleIndications: MOUTH EVERY 12 Transplant Liver (HCC) HOURS torsemide (DEMADEX) 10 Take 3 tablets (30 270 tablet 1 12/2606/14/2019 mg tablet mg total) by mouth daily. Restarted on 03-26-17. Maintenance. traZODone (DESYREL) 100 Take 1 tablet by 0 201610/12/2020 mg tablet mouth at bedtime as needed for sleep. Maintenance documented as 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 [address] [place] [phone] 04/25/2022 Office Visit Otorhinolaryngology Dex Matta APRN, C.N.P., M.S.N. [address] [place] [phone] 05/08/2022 Appointment Laboratory Medicine Angélica Granger P.A.-C. [address] [place] [phone] 05/08/2022 Clinical Admitting/Central Communication Scheduling 05/10/2022 Appointment Radiology Jeremie Rose M.D. [address] [place] [phone] 05/10/2022 Comprehensive Visit Orthopedic Surgery Warner Graves M.D. [address] [place] [phone] 05/22/2022 Appointment Laboratory Medicine Angélica Granger P.A.-C. [address] [place] [phone] 06/05/2022 Appointment Laboratory Medicine Angélica Granger P.A.-C. [address] [place] [phone] 06/19/2022 Appointment Laboratory Medicine Angélica Granger P.A.-C. [address] [place] [phone] 07/03/2022 Appointment Laboratory Medicine Angélica Granger P.A.-C. [address] [place] [phone] 07/17/2022 Appointment Laboratory Medicine Angélica Granger P.A.-C. [address] [place] [phone] 07/31/2022 Appointment Laboratory Medicine Angélica Granger P.A.-C. [address] [place] [phone] 08/14/2022 Appointment Laboratory Medicine Angélica Granger P.A.-C. [address] [place] [phone] 08/28/2022 Appointment Laboratory Medicine Angélica Granger P.A.-C. [address] [place] [phone] documented as of this encounter Visit Diagnoses Diagnosis Transplant Liver (HCC) documented in this encounter Additional Health Concerns Assessment Noted Time PHQ-9 Depression Total Score: 5 03/02/2019 10:51 AM CD T documented as of this encounter Care Teams Big Data Hadoop Developer Relationship Specialty Start Date End Date Elsewhere, Pcp PCP - General Family Medicine 07/29/17 documented as of this encounter
--- OUTSIDE RECORDS SUMMARY | 2022-04-13 12:30 | XMS_ITS | Encounter Summary ---
:1955 Author Organization [facility] Address [address] [place] [address] Care Team Providers Name Role Phone Elsewhere, Pcp Primary Care Provider Unavailable Reason for Referral Outpatient (Routine) - Closed Specialty Diagnoses / Procedures Referred By Contact Refer red To Contact Nutrition Diagnoses Chronic Kidney Disease Stage 4 Glomerular Filtration Rate 15-29 (HCC) Joce Bailey M.D. [address] [phone] Referral ID Status Reason Start Date Expiration Date Visits Requ ested Visits Authorized [id number] Closed 05/04/2019 05/03/2020 1 1 RIDER Encounter Details Date Type Department Care Team Description 05/04/2019 Clinical Communication Division of Nephrology Joel monae, and Hypertension in [place] [address] [place] [phone] Social History Tobacco Use Types Packs/Day Years [...] 12/15/2021 organizations such as restoration groups, unions, fraKiddies Smilz or athletic groups, or school groups? 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 - 05/04/2019 12:53 PM BMX RIDER I ordered abalone fisherman consult for him RIDER Telephone Encounter - Jennifer Hansen - 05/04/2019 11:01 AM CST Mr. Singh is calling today wondering if he can see a abalone fisherman here in Nephrology for his CKD. Would you be willing to order this for the patient prior to his appt so he can try to do it the same day? Thank you. RIDER documented in this encounter Plan of Treatment Upcoming Encounters Date Type Specialty Care Team Description 04/24/2022 Appointment Laboratory Medicine Angélica Granger P.A.-C. [address] [place] [phone] 04/25/2022 Office Visit Otorhinolaryngology Dex Matta APRN CDemetriusNDemetriusP., M.S.N. [address] [place] [phone] 05/08/2022 Appointment Laboratory Medicine Angélica Granger P.A.-C. [address] [place] [phone] 05/08/2022 Clinical Admitting/Central Communication Scheduling 05/10/2022 Appointment Radiology Jeremie Rose M.D. [address] [place] [phone] 05/10/2022 Comprehensive Visit Orthopedic Surgery Warner Graves M.D. [address] [place] [phone] 05/22/2022 Appointment Laboratory Medicine Angélica Granger P.A.-C. [address] [place] [phone] 06/05/2022 Appointment Laboratory Medicine Angélica Granger P.A.-C. [address] [place] [phone] 06/19/2022 Appointment Laboratory Medicine Angélica Granger P.A.-C. [address] [place] [phone] 07/03/2022 Appointment Laboratory Medicine Angélica Granger P.A.-C. [address] [place] [phone] 07/17/2022 Appointment Laboratory Medicine Angélica Granger P.A.-C. [address] [place] [phone] 07/31/2022 Appointment Laboratory Medicine Angélica Granger P.A.-C. [address] [place] [phone] 08/14/2022 Appointment Laboratory Medicine Angélica Granger P.A.-C. [address] [place] [phone] 08/28/2022 Appointment Laboratory Medicine Angélica Granger P.A.-C. [address] [place] [phone] Scheduled Referrals Name Type Priority Associated Order Schedule Diagnoses Nutrition - Outpatient Referral Routine Chronic Kidney Expect ed: Nephrology medical Disease Stage 4 2018 nutrition therapy Glomerular (Approxima te), consult (clinic) Filtration Rate Expires: 15-29 (HCC) 05/04/2022 documented as of this encounter Visit Diagnoses Diagnosis Chronic Kidney Disease Stage 4 Glomerula r Filtration Rate 15-29 (HCC) - Primary documented in this encounter Additional Health Concerns Assessment Noted Time PHQ-9 Depression Total Score: 5 03/02/2019 10:51 AM CD T documented as of this encounter Care Teams Marine Safety Officer Relationship Specialty Start Date End Date Elsewhere, Pcp PCP - General Family Medicine 07/29/17 documented as of this encounter
--- OUTSIDE RECORDS SUMMARY | 2022-04-13 12:30 | XMS_ITS | Encounter Summary ---
:1955 Author Organization [facility] Address [address] [place] [address] Care Team Providers Name Role Phone Elsewhere, Pcp Primary Care Provider Unavailable Reason for Visit Outpatient (Routine) - Closed Specialty Diagnoses / Procedures Referred By Contact Refer red To Contact Nutrition Diagnoses Chronic Kidney Disease Stage 4 Glomerular Filtration Rate 15-29 (HCC) Joce Bailey M.D. 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 ASSESSMENT Relevant Social and Family History Patient lives alone. He is working to do more cooking with fresh ingredients. Food/Nutrition Related History Previous diet experience: Patient has been followed by liver transplant dietitians in the past. Diet recall: Breakfast: oatmeal with cinnamon, flax seed, fruit, drinks a a glass of milk with protein powder Morning snack: maybe whole grain toast with peanut butter Lunch: maybe a tuna sandwich from [employer], maybe a burger with a salad Afternoon snack: often fruit, occasionally frozen vegetables, maybe a hard boiled egg Evening meal: maybe leftovers, maybe meat, vegetables, grains - mostly water Bedtime snack: ice cream, maybe a sweet treat with milk Beverage choices: mostly water, some milk, some iced tea with lemonade Salt/Seasoning use: no salt is added Physical activity: patient is active - he has a gym membership and works out routinely Weight History Date: 05/13/19 Weight: Wt 81.4 kg kg Body mass index is Body mass index is 26.52 kg/m??.. Estimation of Nutritional Needs Weight Used for Equation Calculations: 81.4 kg Date: 03/03/2019 Estimation of Nutritional Needs PROTEIN Weight:81.4 kg (actual body weight) Protein Range: Other (Comment) grams/kg Protein Goal: 0.6 to 0.8 grams per day Suggest: 50-65 grams Method to Estimate Energy Needs: Hernandez-Baltimore Hernandez-Baltimore BEE (Basal): 1630 HB Adjusted: 1956 Total Calorie Needs: 5010-5363 calories NUTRITION DIAGNOSIS Altered nutrition-related laboratory values (NC-2.2) related to chronic kidney disease as evidenced by elevated creatinine and PTH. Nutrition Prescription/Recommendation 1967-7678 mg sodium, 50-65 grams protein, avoid phosphorus based additives INTERVENTION Education: Reviewed kidney friendly diet guidelines for low sodium with adequate protein. Encouragedaccurate label reading to identify and minimize hidden phosphorus based additives. MONITORING AND EVALUATION: Nutrition parameter to monitor: Food intake Desired Outcome: Maintain nutrition related lab values within target range Patient Goal(s): 1. 3214-1309 mg sodium 2. 50-65 gm protein 3. Avoid phosphorus additives FOLLOW UP PLAN: Provided name and phone number if questions should arise , Patient will call to schedule follow-up appointment if desired Time spent with patient (minutes): 45 ER MACHINE documented in this encounter Plan of Treatment Upcoming Encounters Date Type Specialty Care Team Description 04/24/2022 Appointment Laboratory Medicine Angélica Granger P.A.-C. [address] [place] [phone] 04/25/2022 Office Visit Otorhinolaryngology Dex Matta APRN CDemetriusNDemetriusPDemetrius, M.S.N. [address] [place] [phone] 05/08/2022 Appointment Laboratory Medicine Angélica Granger P.A.-C. [address] [place] [phone] 05/08/2022 Clinical Admitting/Central Communication Scheduling 05/10/2022 Appointment Radiology Jeremie Rose M.D. [address] [place] [phone] 05/10/2022 Comprehensive Visit Orthopedic Surgery Warner Graves M.D. [address] [place] [phone] 05/22/2022 Appointment Laboratory Medicine Angélica Granger P.A.-C. [address] [place] [phone] 06/05/2022 Appointment Laboratory Medicine Angélica Granger P.A.-C. [address] [place] [phone] 06/19/2022 Appointment Laboratory Medicine Angélica Granger P.A.-C. [address] [place] [phone] 07/03/2022 Appointment Laboratory Medicine Angélica Granger P.A.-C. [address] [place] [phone] 07/17/2022 Appointment Laboratory Medicine Angélica Granger P.A.-C. [address] [place] [phone] 07/31/2022 Appointment Laboratory Medicine Angélica Granger P.A.-C. [address] [place] [phone] 08/14/2022 Appointment Laboratory Medicine Angélica Granger P.A.-C. [address] [place] [phone] 08/28/2022 Appointment Laboratory Medicine Angélica Granger P.A.-C. [address] [place] [phone] documented as of this encounter Visit Diagnoses Diagnosis Chronic Kidney Disease Stage 4 Glomerula r Filtration Rate 15-29 (HCC) documented in this encounter Additional Health Concerns Assessment Noted Time PHQ-9 Depression Total Score: 5 03/02/2019 10:51 AM CD T documented as of this encounter Care Teams Wetlands Conservation Laborer Relationship Specialty Start Date End Date Elsewhere, Pcp PCP - General Family Medicine 07/29/17 documented as of this encounter
--- OUTSIDE RECORDS SUMMARY | 2022-04-13 12:30 | XMS_ITS | Encounter Summary ---
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 [address] [place] [phone] 04/25/2022 Office Visit Otorhinolaryngology Dex Matta APRN, C.N.P., M.S.N. [address] [place] [phone] 05/08/2022 Appointment Laboratory Medicine Angélica Granger P.A.-CDemetrius [address] [place] [phone] 05/08/2022 Clinical Admitting/Central Communication Scheduling 05/10/2022 Appointment Radiology Jeremie Rose M.D. [address] [place] [phone] 05/10/2022 Comprehensive Visit Orthopedic Surgery Warner Graves M.D. [address] [place] [phone] 05/22/2022 Appointment Laboratory Medicine Angélica Granger P.A.-CDemetrius [address] [place] [phone] 06/05/2022 Appointment Laboratory Medicine Angélica Granger P.A.-C. [address] [place] [phone] 06/19/2022 Appointment Laboratory Angélica Royal P.A.-C. [address] [place] [phone] 07/03/2022 Appointment Laboratory Medicine Angélica Granger P.A.-C. [address] [place] [phone] 07/17/2022 Appointment Laboratory Medicine Angélica Granger P.A.-C. [address] [place] [phone] 07/31/2022 Appointment Laboratory Medicine Angélica Granger P.A.-C. [address] [place] [phone] 08/14/2022 Appointment Laboratory Angélica Royal P.A.-C. [address] [place] [phone] 08/28/2022 Appointment Laboratory Angélica Royal P.A.-C. [address] [place] [phone] documented as of this encounter Visit Diagnoses Not on filedocumented in this encounter Additional Health Concerns Assessment Noted Time PHQ-9 Depression Total Score: 5 03/02/2019 10:51 AM CD T documented as of this encounter Care Teams Chef Instructor Relationship Specialty Start Date End Date Elsewhere, Pcp PCP - General Family Medicine 07/29/17 documented as of this encounter
--- OUTSIDE RECORDS SUMMARY | 2022-04-13 12:30 | XMS_ITS | Encounter Summary ---
:1955 Author Organization [facility] Address [address] [place] [address] Care Team Providers Name Role Phone Elsewhere, Pcp Primary Care Provider Unavailable Encounter Details Date Type Department Care Team Description 04/19/2019 Hospital Encounter Department of Angélica Granger Liver Laboratory Medicine Edmundo Stern (HCC) and Pathology, [address] [place] [address] in [place], [place] [phone] [place] [address] [place], [place] (Work) [address] [phone] Social History Tobacco Use Types Packs/Day Years [...] at Date Recorded Male 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 [address] [place] [phone] 04/25/2022 Office Visit Otorhinolaryngology Dex Matta APRN, C.N.P., M.S.N. [address] [place] [phone] 05/08/2022 Appointment Laboratory Medicine Angélica Granger P.A.-C. [address] [place] [phone] 05/08/2022 Clinical Admitting/Central Communication Scheduling 05/10/2022 Appointment Radiology Jeremie Rose M.D. [address] [place] [phone] 05/10/2022 Comprehensive Visit Orthopedic Surgery Warner Graves M.D. [address] [place] [phone] 05/22/2022 Appointment Laboratory Medicine Angélica Granger P.A.-C. [address] [place] [phone] 06/05/2022 Appointment Laboratory Medicine Angélica Granger P.A.-C. [address] [place] [phone] 06/19/2022 Appointment Laboratory Medicine Angélica Granger P.A.-C. [address] [place] [phone] 07/03/2022 Appointment Laboratory Medicine Angélica Granger P.A.-C. [address] [place] [phone] 07/17/2022 Appointment Laboratory Medicine Angélica Granger P.A.-C. [address] [place] [phone] 07/31/2022 Appointment Laboratory Medicine Angélica Granger P.A.-C. [address] [place] [phone] 08/14/2022 Appointment Laboratory Medicine Angélica Granger P.A.-C. [address] [place] [phone] 08/28/2022 Appointment Laboratory Medicine Angélica Granger P.A.-C. [address] [place] [phone] documented as of this encounter Visit Diagnoses Diagnosis Transplant Liver (HCC) documented in this encounter Additional Health Concerns Assessment Noted Time PHQ-9 Depression Total Score: 5 03/02/2019 10:51 AM CD T documented as of this encounter Care Teams Hazardous Materials Driver Relationship Specialty Start Date End Date Elsewhere, Pcp PCP - General Family Medicine 07/29/17 documented as of this encounter
--- OUTSIDE RECORDS SUMMARY | 2022-04-13 12:30 | XMS_ITS | Encounter Summary ---
:[address] [facility] Address [address] [place] [address] Care Team Providers Name Role Phone Elsewhere, Pcp Primary Care Provider Unavailable Reason for Visit Reason Comments Chronic Kidney Disease Outpatient (Routine) - Closed Specialty Diagnoses / Procedures Referred By Contact Refer red To Contact Nephrology and [facility] Hypertension Sada Hobson [address] [place] [address] Referral ID Status Reason Start Date Expiration Date Visits Requ ested Visits Authorized [id number] Closed 03/01/2019 02/29/2020 1 1 Encounter Details Date Type Department Care Team Description 05/13/2019 Comprehensive Visit Division of [facility] Chronic Kidney Disease Stage 4 Glomerular Filtration Rate 15-29 (HCC) (Primary Dx); Nephrology and Sada Hobson Stenosis Renal Artery (HCC) Hypertension in [address] [place], [place] [address] [facility] [address] [place], [place] [phone] (Work) [phone] Social History Tobacco Use Types Packs/Day Years [...] 12/15/2021 organizations such as scientology groups, unions, [employer] or athletic groups, or school groups? 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 - 05/13/2019 1:15 PM CST SUBJECTIVE REASON FOR VISIT CHRONIC KIDNEY DISEASE HISTORY OF PRESENT ILLNESS Mr. Singh is a 63 y.o. male came to clinic for follow-up of chronic kidney disease. 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 He was last seen by me in 01/2018. He got kidney biopsy 08/2017 due to proteinuria and hematuria with dysmorphic RBC showing focal segmental sclerosis with some collapsing features. The finding of collapsing feature was thought to be due to calcineurin inhibitor. He also has significant arteriosclerosis and arteriolar hyalinosis, [id number]. Interstitial fibrosis with tubular atrophy affects approximately 30-40% of the sample cortex. Overall, he is feeling well and denies any complaints. His home blood pressure is about 125-130/70. His heart rate is usually 50-60 but he noted that it sometimes goes down to 40s. He is taking amlodipine 10 mg daily, carvedilol 3.125 mg two times daily (reduced from 6.[address] Mohr in 02/2019), torsemide 30 mg daily and doxazosin 8 mg at night. He states that he rarely misses the medication. He sometimes feels fatigue and lightheaded when changing the position. He denies any chest pain, shortness of [...] tablet TAKE 1 TABLET BY MOUTH DAILY 100 tablet 3 ??? amoxicillin (AMOXIL) 500 mg capsule Take 4 capsules by mouth as directed. Prior to dental procedures 0 ??? aspirin [address] tablet Take 81 mg by mouth daily. ??? atorvastatin (LIPITOR) 10 mg tablet TAKE 1 TABLET(10 MG) BY MOUTH DAILY 90 tablet 0 ??? CALCIUM-MAGNESIUM ORAL Take 2 capsules by mouth 2 (two) times a day. 400mg calcium twice daily ??? cholecalciferol (VITAMIN D3) 2,000 Unit tablet Take 1 tablet by mouth daily. ??? coenzyme Q10 (CO Q-10) 200 mg capsule Take 1 capsule by mouth daily. ??? doxazosin (CARDURA) 8 mg tablet TAKE 1 TABLET(8 MG) BY MOUTH DAILY AT NIGHT 90 tablet 1 ??? fluticasone (FLONASE ALLERGY RELIEF) 50 mcg/actuation [...] 3 ??? predniSONE (DELTASONE) 5 mg tablet TAKE 1 TABLET BY MOUTH DAILY 90 tablet 3 ??? tacrolimus (PROGRAF) 0.5 mg capsule TAKE 2 CAPSULES BY MOUTH EVERY 12 HOURS 360 capsule 3 ??? torsemide (DEMADEX) 10 mg tablet Take 3 tablets (30 mg total) by mouth daily. Restarted on 03-26-17. Maintenance. 270 tablet 1 ??? traZODone (DESYREL) 100 mg tablet Take 1 tablet by mouth at bedtime as needed for sleep. Maintenance ??? aspirin (ASPIRIN CHILDRENS) 81 mg chewable tablet Chew daily. ??? glucosamine-chondroitin (GLUCOSAMINE-CHONDROITIN) 500-400 mg per capsule Take 4 capsules by mouth daily. ??? ipratropium (ATROVENT) 42 mcg (0.06 %) nasal spray Administer 2 sprays into affected nostril(s) 4 (four) times a day as needed for rhinitis. Maintenance No current facility-administered medications for this visit. OBJECTIVE VITAL SIGNS BP 130/69 Pulse (!) 50 Cardiovascular Rate and Rhythm: Normal rate and regular rhythm. Heart sounds: Normal heart sounds. No murmur. No friction rub. No gallop. Pulmonary Effort: Pulmonary effort is normal. No respiratory distress. Breath sounds: Normal breath sounds. No wheezing or rales. Chest Chest wall: No tenderness. Musculoskeletal General: No edema. Skin General: Skin is warm. Capillary Refill: Capillary refill takes less than 2 seconds. Neurological Mental Status: He is alert. DIAGNOSTIC FINDINGS I have reviewed laboratory, imaging, and other diagnostic studies. Relevant findings are as follows: Lab Results Component Value Date CREATININE 3.01 (H) 05/11/2019 CREATININE 3.01 (H) 05/11/2019 BUN 51 (H) 05/11/2019 BUN 51 (H) 05/11/2019 NA 139 05/11/2019 NA 139 05/11/2019 K 3.4 (L) 05/11/2019 K 3.4 (L) 05/11/2019 CL 98 05/11/2019 CL 98 05/11/2019 US kidney with doppler (02/10/2018) 1. Right [...] immunosuppression - MMF, tacrolimus, and prednison His creatinine increased to 3.0 from his baseline of 2.6-2.9. His GFR was 21 based on creatinine, and 16 based on cystatin C. His urine albumin creatinine ratio decreased to 136 from previously nephrotic range proteinuria. His risk of progression to ESRD requiring dialysis was 15% in 2 years and 39% in 5 years. He has been listed for donor kidney transplant with inactive status given GFR > 20. He attended the renal replacement therapy session but he has not decided what type of dialysis he would like to pursue if he need dialysis. His blood pressure is well controlled. Target blood pressure < 130/80. However, he has bradycardia with reported history of orthostatic hypotension. Although his heart rate usually run between 50-60, it is quite concerning when it sometimes goes down to 40s. I suggest him to stop carvedilol and monitor blood pressure more closely. Continue amlodipine 10 mg daily, torsemide 30 mg daily and doxazosin 8 mg at night. If blood pressure is elevated, I might add ACEI/ARB, which is more preferred option in setting of chronic kidney disease. If he continues to have orthostatic lightheadedness, I plan to reduce the dose of doxazosin. He was initially put on doxazosin due to nocturia symptoms, which is currently much improved. He follows low-salt and low to moderate protein diet. In addition, he does notappear to have edema and I consider to reduce torsemide dose to avoid volume depletion which enhancecalcineurin nephrotoxicity. US in 01/2018 showed widely patent left renal artery stent. Plan to follow-up US next visit CKD management - anemia; Hb 10.9. iron study is well repleted. No Need for JORGE L or iron therapy for now - metabolic acidosis; HCO3 > 22. 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 - lipid; on atorvastatin He will see me again in 3 months Contact number: [phone] Joce Bailey M.D. CCO DRIER OPERATOR documented in this encounter Plan of Treatment Upcoming Encounters Date Type Specialty Care Team Description 04/24/2022 Appointment Laboratory Medicine Angélica Granger P.A.-C. [address] [place] [phone] 04/25/2022 Office Visit Otorhinolaryngology Dex Matta APRN, C.N.P., M.S.N. [address] [place] [phone] 05/08/2022 Appointment Laboratory Medicine Angélica Granger P.A.-C. [address] [place] [phone] 05/08/2022 Clinical Admitting/Central Communication Scheduling 05/10/2022 Appointment Radiology Jeremie Rose M.D. [address] [place] [phone] 05/10/2022 Comprehensive Visit Orthopedic Surgery Warner Graves M.D. [address] [place] [phone] 05/22/2022 Appointment Laboratory Medicine Angélica Granger P.A.-C. [address] [place] [phone] 06/05/2022 Appointment Laboratory Medicine Angélica Granger P.A.-C. [address] [place] [phone] 06/19/2022 Appointment Laboratory Medicine Angélica Granger P.A.-C. [address] [place] [phone] 07/03/2022 Appointment Laboratory Medicine Angélica Granger P.A.-C. [address] [place] [phone] 07/17/2022 Appointment Laboratory Medicine Angélica Granger P.A.-C. [address] [place] [phone] 07/31/2022 Appointment Laboratory Medicine Angélica Granger P.A.-C. [address] [place] [phone] 08/14/2022 Appointment Laboratory Medicine Angélica Granger P.A.-C. [address] [place] [phone] 08/28/2022 Appointment Laboratory Medicine Angélica Granger P.A.-C. [address] [place] [phone] documented as of this encounter Results (ABNORMAL) Albumin, Random, Urine (11/17/2019 9:50 AM CDT) P athologist Signature Albumin, 202.6 mg/L 11/17/2019 DAVE Random, U 10:38 AM CDT Comment: ----ADDITIONAL INFORMATION---- This test has been modified from the man ufacturer's instructions. Its performance characteri stics were determined by [facility] in a manner co nsistent with CLIA [...] Organization Address City/State/ZIP Code Phon e Number [facility] - [address] [place] [address] [facility] [place] [address] Laboratories-[facility] 200 [facility] (ABNORMAL) Urinalysis with Microscopic: Urine, Voided (11/17/2019 9:50 AM CDT) Patholo gist Method Time Signature Source Midstream 11/17/2019 DAVE 9:50 AM CDT Appearance Normal Normal 11/17/2019 DAVE 10:38 AM CDT Osmolality, U 368 150 - 1150 11/17/2019 DAVE mOsm/kg 11:16 AM CDT pH, U 6.0 4.5 - 8.0 11/17/2019 DAVE 11:16 AM CDT Comment: ----ADDITIONAL INFORMATION---- This test was developed and its performa nce characteristics determined by [facility] in a manner co nsistent with CLIA [...] Organization Address City/State/ZIP Code Phon e Number [facility] - [address] [place], [place] [address] [place] [address] Laboratories-[facility] [address] 25-Hydroxyvitamin D2 and D3 (11/17/2019 9:29 AM CDT) P athologist Signature 25-Hydroxy D2 <4.0 ng/mL 11/18/2019 SDSC 10:45 PM CDT 25-Hydroxy D3 69 ng/mL 11/18/2019 SDSC 10:45 PM CDT 25-Hydroxy D 69 ng/mL 11/18/2019 SDSC Total 10:45 PM CDT Comment: Interpretation: 51-80 ng/mL (increased r isk of hypercalciuria) ----REFERENCE VALUE---- 25-HYDROXY D TOTAL (D2+D3) Optimum level s in the healthy population are 20-50, patients with bone disease may benefit from higher levels within this r itzel. ----ADDITIONAL INFORMATION---- This test was developed and its performa nce characteristics determined by [facility] in a manner consistent with CLIA requirements. This test has not been cleared or approved by the U.S. Mer d and Drug Administration. Specimen Anatomical Collection Method Collection Time Receive d Time (Source) Location / / Volume Laterality Blood (Blood, 11/17/2019 9:29 AM 11/17/19 2:29 Venous) CDT PM CDT Joce Bailey M.D. LAB BLOOD ADD-ON Performing Organization Address City/[facility]/ZIP Code Phon e Number [facility] [address] [place], [place] [address] [facility] [place] [address] Laboratory Medicine and Pathology [address] [place] (ABNORMAL) Parathyroid Hormone (PTH) (11/17/2019 9:29 AM CDT) P athologist Signature Parathyroid 68 (H) 15 - 65 11/17/2019 DTL Hormone (PTH), S pg/mL 12:21 PM CDT Specimen Anatomical Collection Method Collection Time Receive d Time (Source) Location / / Volume Laterality Blood (Blood, 11/17/2019 9:29 AM 11/17/19 20 9:49 Venous) CDT AM CDT Joce Bailey M.D. LAB BLOOD ADD-ON Performing Organization Address City/[facility]/ZIP Code Phon e Number [facility] - [address] [place], [place] [address] [facility] [place] [address] Laboratories-[facility] [address] Uric Acid (11/17/2019 9:29 AM CDT) P athologist Signature Uric Acid, S 7.8 3.7 - 8.0 11/17/2019 DTL mg/dL 12:21 PM CDT Specimen Anatomical Collection Method Collection Time Receive d Time (Source) Location / / Volume Laterality Blood (Blood, 11/17/2019 9:29 AM 11/17/19 20 9:49 Venous) CDT AM CDT Joce Bailey M.D. LAB BLOOD ADD-ON Performing Organization Address City/State/[facility] Phon e Number [facility] - [address] (ABNORMAL) Magnesium (11/17/2019 9:29 AM CDT) athologist [facility] Magnesium, S 2.5 (H) 1.7 - 2.3 11/17/2019 DTL mg/dL 12:21 PM CDT Specimen Anatomical Collection Method Collection Time Receive d Time (Source) Location / / Volume Laterality Blood (Blood, 11/17/2019 9:29 AM 11/17/19 20 9:49 Venous) CDT AM CDT Joce Bailey M.D. LAB BLOOD ADD-ON Performing Organization Address City/[facility]/ZIP Code Phon e Number [facility] - [address] [address] Laboratories-[address] Ferritin (11/17/2019 9:29 AM CDT) athologist [facility] Ferritin, S 84 [phone] 11/17/2019 DTL mcg/L 12:13 PM CDT Specimen Anatomical Collection Method Collection Time Receive d Time (Source) Location / / Volume Laterality Blood (Blood, 11/17/2019 9:29 AM 11/17/19 20 9:49 Venous) CDT AM CDT Joce Bailey M.D. LAB BLOOD ADD-ON Performing Organization Address City/[facility] Phon e Number [facility] - [id number] [place] [address] (ABNORMAL) Cystatin C with Estimated GFR, S (11/17/2019 9:29 AM CDT) athologist [facility] eGFR by 13 >60 11/17/2019 DAVE Cystatin [...] Organization Address City/State/ZIP Code Phon e Number [facility] - [address] [place], [place] [address] [facility] [place] [address] Laboratories-[facility] [address] (ABNORMAL) Renal [...] 11/17/2019 DTL Black/ mL/min/BSA 11:37 AM CDT Taiwanese Comment: ----ADDITIONAL INFORMATION---- Estimated GFR calculated using [...] M.D. LAB BLOOD ADD-ON Performing Organization Address City/[facility] Phon e Number [facility] - [address] (ABNORMAL) Iron and Total Iron-Binding Capacity [...] Organization Address City/State/ZIP Code Phon e Number [facility] - [address] US Kidneys with Renal Artery Doppler (11/17/2019 [...] r Filtration Rate 15-29 (HCC) - Primary Stenosis Renal Artery (HCC) Stenosis Renal Artery (HCC) documented in this encounter Additional Health Concerns Assessment Noted Time PHQ-9 Depression Total Score: 5 03/02/2019 10:51 AM CD T documented as of this encounter Care Teams Desizing 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
--- OUTSIDE RECORDS SUMMARY | 2022-04-13 12:30 | XMS_ITS | Encounter Summary ---
:1955 Author Organization [facility] Address [address] [place] [address] Care Team Providers Name Role Phone Elsewhere, Pcp Primary Care Provider Unavailable Encounter Details Date Type Department Care Team Description 05/11/2019 Hospital Encounter Department of [place]ong[place]ayoon, Hyperte nsion And Chronic Kidney Disease Stage 4 (HCC); Laboratory Medicine Sada Hobson Transplant Liver (HCC); in [address] Medication Therapy Property Economist [place] [address] [facility] [id number] [place], [place] [phone] (Work) [phone] Social History Tobacco Use Types Packs/Day Years [...] at Date Recorded Male 05/16/2020 4:27 PM REPRODUCTION TECHNICIAN documented as of this encounter Medications [...] Laboratory Medicine Angélica Granger P.A.-C. [address] [place] [phone] 04/25/2022 Office Visit Otorhinolaryngology Dex Matta APRN, C.N.P., M.S.N. [address] [place] [phone] 05/08/2022 Appointment Laboratory Medicine Angélica Granger P.A.-C. [address] [place] [phone] 05/08/2022 Clinical Admitting/Central Communication Scheduling 05/10/2022 Appointment Radiology Jeremie Rose M.D. [address] [place] [address] [phone] 05/10/2022 Comprehensive Visit Orthopedic Surgery Warner Graves M.D. [address] [place] [phone] 05/22/2022 Appointment Laboratory Medicine Angélica Granger P.A.-C. [address] [place] [phone] 06/05/2022 Appointment Laboratory Medicine Angélica Granger P.A.-CDemetrius [address] [place] [phone] 06/19/2022 Appointment Laboratory Medicine Angélica Granger P.A.-C. [address] [place] [phone] 07/03/2022 Appointment Laboratory Medicine Angélica Granger P.A.-C. [address] [place] [phone] 07/17/2022 Appointment Laboratory Medicine Angélica Granger P.A.-C. [address] [place] [phone] 07/31/2022 Appointment Laboratory Medicine Angélica Granger P.A.-C. [address] [place] [phone] 08/14/2022 Appointment Laboratory Medicine Angélica Granger P.A.-C. [address] [place] [phone] 08/28/2022 Appointment Laboratory Medicine Angélica Granger P.A.-C. [address] [place] [phone] documented as of this encounter Procedures Procedure Name Priority Date/Time Associated Diagnosis Comme nts LIPID PANEL, S Routine 05/11/2019 9:20 Hypertension And Result s for this AM REPRODUCTION TECHNICIAN Chronic Kidney procedure are in Disease Stage 4 (HCC) the re sults section. RENAL FUNCTION PANEL, Routine 05/11/2019 9:20 Hypertension And Results for this S AM REPRODUCTION TECHNICIAN Chronic Kidney procedure are in Disease Stage 4 (HCC) the re sults section. CYSTATIN C WITH EGFR Routine 05/11/2019 9:20 Hypertension And Results for this AM REPRODUCTION TECHNICIAN Chronic Kidney procedure are in Disease Stage 4 (HCC) the re sults section. TACROLIMUS LEVEL, B Routine 05/11/2019 9:20 Transplant Liver R esults for this AM REPRODUCTION TECHNICIAN (HCC) procedure are in Medication Therapy the resul ts Prison Not section. Anticoagulant IRON AND TOT Routine 05/11/2019 9:20 Hypertension And Results for this IRON-BINDING AM REPRODUCTION TECHNICIAN Chronic Kidney procedure are in CAPACITY, S/P Disease Stage 4 (HCC) the r esults section. 25-HYDROXYVITAMIN D2 Routine 05/11/2019 9:20 Hypertension And Results for this AND D3, S AM REPRODUCTION TECHNICIAN Chronic Kidney procedure are in Disease Stage 4 (HCC) the re sults section. CBC WITH Routine 05/11/2019 9:20 Hypertension And Results for this DIFFERENTIAL, B AM REPRODUCTION TECHNICIAN Chronic Kidney procedure are in Disease Stage 4 (HCC) the re sults section. URIC ACID, S/P Routine 05/11/2019 9:20 Hypertension And Result s for this AM REPRODUCTION TECHNICIAN Chronic Kidney procedure are in Disease Stage 4 (HCC) the re sults section. PARATHYROID HORMONE Routine 05/11/2019 9:20 Hypertension And R esults for this (PTH), S AM REPRODUCTION TECHNICIAN Chronic Kidney procedure are in Disease Stage 4 (HCC) the re sults section. FERRITIN, S Routine 05/11/2019 9:20 Hypertension And Results for this AM REPRODUCTION TECHNICIAN Chronic Kidney procedure are in Disease Stage 4 (HCC) the re sults section. COMPREHENSIVE Routine 05/11/2019 9:20 Transplant Liver Results for this METABOLIC PANEL, S/P AM REPRODUCTION TECHNICIAN (HCC) procedure are in Medication Therapy the resul ts Property Economist Not section. Anticoagulant ALBUMIN, RANDOM, U Routine 05/11/2019 9:10 Hypertension And Re sults for this AM REPRODUCTION TECHNICIAN Chronic Kidney procedure are in Disease Stage 4 (HCC) the re sults section. URINALYSIS WITH Routine 05/11/2019 9:10 Hypertension And Resul ts for this MICROSCOPIC AM REPRODUCTION TECHNICIAN Chronic Kidney procedure are in Disease Stage 4 (HCC) the re sults section. documented in this encounter Results (ABNORMAL) Renal Function Panel (05/11/2019 9:20 AM REPRODUCTION TECHNICIAN) Analysis Performed At Patho logist Time Signature Potassium, S 3.4 (L) 3.6 - 5.2 05/11/2019 [place] mmol/L 2:34 PM REPRODUCTION TECHNICIAN Sodium, S 139 135 - 145 05/11/2019 [place] mmol/L 2:34 PM REPRODUCTION TECHNICIAN Chloride, S 98 98 - 107 05/11/2019 [place] mmol/L 2:34 PM REPRODUCTION TECHNICIAN Bicarbonate, S 24 22 - 29 05/11/2019 [place] mmol/L 2:34 PM REPRODUCTION TECHNICIAN Anion Gap 17 (H) 7 - 15 05/11/2019 [place] 2:34 PM REPRODUCTION TECHNICIAN BUN (Blood Urea 51 (H) 8 - 24 05/11/2019 [place] Nitrogen), S mg/dL 2:34 PM REPRODUCTION TECHNICIAN Creatinine 3.01 (H) 0.74 - 05/11/2019 [place] 1.35 mg/dL 2:34 PM REPRODUCTION TECHNICIAN eGFR-Non 21 (L) >=60 05/11/2019 [place] Black/ mL/min/BSA 2:34 PM REPRODUCTION TECHNICIAN Tajik Comment: ----ADDITIONAL INFORMATION---- Estimated GFR calculated using the 2009 CKD_EPI creatinine equation. eGFR-Black/ 24 (L) >=60 mL/min/BSA 2018 2:34 PM REPRODUCTION TECHNICIAN OWAT Comment: ----ADDITIONAL INFORMATION---- Estimated GFR calculated using the 2009 CKD_EPI creatinine equation. Calcium, Total, S 9.2 8.8 - 10.2 mg/dL 05/11/2019 2:34 PM REPRODUCTION TECHNICIAN OWAT Glucose, S 119 70 - 140 mg/dL 05/11/2019 2:34 PM REPRODUCTION TECHNICIAN O YAO Albumin, S 4.2 3.5 - 5.0 g/dL 05/11/2019 2:34 PM REPRODUCTION TECHNICIAN O YAO Phosphorus (Inorganic), S 3.4 2.5 - 4.5 mg/dL 05/11/20 4:22 PM REPRODUCTION TECHNICIAN AUST Specimen Anatomical Collection Method Collection Time Receive d Time (Source) Location / / Volume Laterality Blood (Blood, 05/11/2019 9:20 AM 05/11/20 1:34 Venous) REPRODUCTION TECHNICIAN PM REPRODUCTION TECHNICIAN Narrative [facility] - 05/11/2019 4:22 PM REPRODUCTION TECHNICIAN Specimen Information: Specimen ID: [id number] Specimen Type: Blood Specimen Collection Start Date: 019 ??9:20 AM Specimen Received Date: 05/11/2019 ??1: 34 PM Specimen ID: [id number] Specimen Type: Blood Specimen Collection Start Date: 019 ??9:20 AM Specimen Received Date: 05/11/2019 ??4: 01 PM Joce Bailey M.D. LAB BLOOD ADD-ON Performing Organization Address City/State/ZIP Code Phon e Number [facility]- [address] [place], [place] [id number] [place] [address] [place] [address] System in [place] [address] [place] [address] [facility] [address] (ABNORMAL) Cystatin C with Estimated GFR, S (05/11/2019 9:20 AM REPRODUCTION TECHNICIAN) athologist Signature eGFR by 16 >60 05/12/2019 DAVE Cystatin C mL/min/BSA 7:49 AM REPRODUCTION TECHNICIAN Comment: ----ADDITIONAL INFORMATION---- Cystatin C-based eGFR may differ substan tially from creatinine-based eGFR in patients with a bnormal muscle mass or acutely changing renal function. ??Pl ease interpret together with relevant clinical features. Cystatin C, S 3.18 (H) 0.77 - 1.42 mg/L 05/12/2019 7:49 AM REPRODUCTION TECHNICIAN DAVE Specimen Anatomical Collection Method Collection Time Receive d Time (Source) Location / / Volume Laterality Blood (Blood, 05/11/2019 9:20 AM 05/12/20 6:53 Venous) REPRODUCTION TECHNICIAN AM REPRODUCTION TECHNICIAN Joce Bailey M.D. LAB BLOOD ADD-ON Performing Organization Address City/State/ZIP Code Phon e Number [facility] - [address] [place], [place] [address] [place] [address] [facility] [address] (ABNORMAL) Lipid Panel (05/11/2019 9:20 AM REPRODUCTION TECHNICIAN) athologist Signature Cholesterol, 131 mg/dL 05/11/2019 [place] Total 2:34 PM REPRODUCTION TECHNICIAN Comment: ----REFERENCE VALUE---- Desirable: < 200 Borderline high: 200 - 239 High: > or = 240 Triglycerides 171 (H) mg/dL 05/11/2019 2:34 PM REPRODUCTION TECHNICIAN OWA T Comment: ----REFERENCE VALUE---- Normal: <150 Borderline high: 150-199 High: 200-499 Very high: > or =500 Cholesterol, HDL, S 33 (L) >=40 mg/dL 05/11/2019 2:34 PM REPRODUCTION TECHNICIAN OWAT Calculated LDL 64 mg/dL 05/11/2019 2:34 PM REPRODUCTION TECHNICIAN OW AT Comment: ----REFERENCE VALUE---- Desirable: <100 Above Desirable: 100-129 Borderline high: 130-159 High: 160-189 Very high: > or =190 Cholesterol, Non-HDL, Calculated 98 mg/dL 019 2:34 PM REPRODUCTION TECHNICIAN OW Comment: ----REFERENCE VALUE---- Desirable: <130 Above Desirable: 130-159 Borderline high: 160-189 High: 190-219 Very high: > or =220 Specimen Anatomical Collection Method Collection Time Receive d Time (Source) Location / / Volume Laterality Blood (Blood, 05/11/2019 9:20 AM 05/11/20 1:34 Venous) REPRODUCTION TECHNICIAN PM REPRODUCTION TECHNICIAN Joce Bailey M.D. LAB BLOOD ADD-ON Performing Organization Address City/State/ZIP Code Phon e Number [facility]- [address] [place] [address] [facility] [place] [place] [address] System in [place] [address] (ABNORMAL) CBC with Differential (05/11/2019 9:20 AM REPRODUCTION TECHNICIAN) [facility] gist Method Time Signature Hemoglobin 10.9 (L) 13.2 - 05/11/2019 FB60 16.6 g/dL 10:48 AM REPRODUCTION TECHNICIAN Hematocrit 33.0 (L) 38.3 - 05/11/2019 FB60 48.6 % 10:48 AM REPRODUCTION TECHNICIAN Erythrocytes 3.53 (L) 4.35 - 05/11/2019 FB60 5.65 10:48 AM REPRODUCTION TECHNICIAN x10(12)/L MCV 93.5 78.2 - 05/11/2019 FB60 97.9 fL 10:48 AM REPRODUCTION TECHNICIAN RBC Distrib Width 12.7 11.8 - 05/11/2019 FB60 14.5 % 10:48 AM REPRODUCTION TECHNICIAN Platelet Count 204 135 - 317 05/11/2019 FB60 x10(9)/L 10:48 AM REPRODUCTION TECHNICIAN Leukocytes 3.2 (L) 3.4 - 9.6 05/11/2019 FB60 x10(9)/L 10:48 AM REPRODUCTION TECHNICIAN Neutrophils 1.45 (L) 1.56 - 05/11/2019 FB60 6.45 10:48 AM REPRODUCTION TECHNICIAN x10(9)/L Lymphocytes 1.15 0.95 - 05/11/2019 FB60 3.07 10:48 AM REPRODUCTION TECHNICIAN x10(9)/L Monocytes 0.53 0.26 - 05/11/2019 FB60 0.81 10:48 AM REPRODUCTION TECHNICIAN x10(9)/L Eosinophils 0.06 0.03 - 05/11/2019 FB60 0.48 10:48 AM REPRODUCTION TECHNICIAN x10(9)/L Basophils 0.01 0.01 - 05/11/2019 FB60 0.08 10:48 AM REPRODUCTION TECHNICIAN x10(9)/L Specimen Anatomical Collection Method Collection Time Receive d Time (Source) Location / / Volume Laterality Blood (Blood, 05/11/2019 9:20 AM 05/11/20 9:24 Venous) REPRODUCTION TECHNICIAN AM REPRODUCTION TECHNICIAN Joce Bailey M.D. LAB BLOOD ADD-ON Performing Organization Address City/State/ZIP Code Phon e Number [facility] [address] [place] [address] [place] [facility] FB60 [place] [address] (ABNORMAL) Iron and Total Iron-Binding Capacity (05/11/2019 9:20 AM REPRODUCTION TECHNICIAN) P athologist Signature Iron 94 50 - 150 05/11/2019 [place] mcg/dL 5:00 PM REPRODUCTION TECHNICIAN Total Iron 240 (L) 250 - 400 05/11/2019 [place] Binding mcg/dL 5:00 PM REPRODUCTION TECHNICIAN Capacity Percent 39 14 - 50 % 05/11/2019 [place] Saturation 5:00 PM REPRODUCTION TECHNICIAN Specimen Anatomical Collection Method Collection Time Receive d Time (Source) Location / / Volume Laterality Blood (Blood, 05/11/2019 9:20 AM 05/11/20 4:01 Venous) REPRODUCTION TECHNICIAN PM REPRODUCTION TECHNICIAN Joce Bailey M.D. LAB BLOOD ADD-ON Performing Organization Address City/State/ZIP Code Phon e Number [facility]- [address] [place] [address] [place] [address] [facility] [address] Ferritin (05/11/2019 9:20 AM REPRODUCTION TECHNICIAN) P athologist Signature Ferritin, S 162 mcg/L 05/11/2019 2:08 [place] PM REPRODUCTION TECHNICIAN Comment: Biotin has been identified by the [facility]rey [facility] as a potential interfering substance. ??Higher concentr ations of biotin may be found in multivitamins, hair/nail supple ments, and workout supplements. ??If the result does not ma tch clinical observations, repeat testing after patient refrains fr om the use of supplements for at least 12 hours. ----REFERENCE VALUE---- Reference values have not been established for patients who are greater than 60 years of age Specimen Anatomical Collection Method Collection Time Receive d Time (Source) Location / / Volume Laterality Blood (Blood, 05/11/2019 9:20 AM 05/11/20 1:34 Venous) REPRODUCTION TECHNICIAN PM REPRODUCTION TECHNICIAN Joce Bailey M.D. LAB BLOOD ADD-ON Performing Organization Address City/State/ZIP Code Phon e Number [facility]- [address] [place] [address] [place] [address] System in [place] [address] (ABNORMAL) Parathyroid Hormone (PTH) (05/11/2019 9:20 AM REPRODUCTION TECHNICIAN) P athologist Signature Parathyroid 98 (H) 15 - 65 05/11/2019 [place] Hormone (PTH), S pg/mL 4:31 PM REPRODUCTION TECHNICIAN Comment: Biotin has been identified by the [...] Location / / Volume Laterality Blood (Blood, 05/11/2019 9:20 AM 05/11/20 4:01 Venous) REPRODUCTION TECHNICIAN PM REPRODUCTION TECHNICIAN Joce Bailey M.D. LAB BLOOD ADD-ON Performing Organization Address City/State/ZIP Code Phon e Number [facility]- [address] [place] [address] [place] [address] [facility] [address] 25-Hydroxyvitamin D2 and D3 (05/11/2019 9:20 AM REPRODUCTION TECHNICIAN) P athologist Signature 25-Hydroxy D2 <4.0 ng/mL 05/14/2019 [facility] 11:[facility] AM REPRODUCTION TECHNICIAN 25-Hydroxy D3 69 ng/mL 05/14/2019 [facility] 11:05 AM REPRODUCTION TECHNICIAN 25-Hydroxy D 69 ng/mL 05/14/2019 [facility] Total 11:05 AM REPRODUCTION TECHNICIAN Comment: Interpretation: 51-80 ng/mL (increased r isk of hypercalciuria) ----REFERENCE VALUE---- 25-HYDROXY D TOTAL (D2+D3) Optimum level s in the healthy population are 20-50, patients with bone disease may benefit from higher levels within this r itzel. ----ADDITIONAL INFORMATION---- This test was developed and its performa nce characteristics determined by [facility] in a manner consistent with CLIA requirements. This test has not been cleared or approved by the U.S. Mer d and Drug Administration. Specimen Anatomical Collection Method Collection Time Receive d Time (Source) Location / / Volume Laterality Blood (Blood, 05/11/2019 9:20 AM 05/12/20 7:57 Venous) REPRODUCTION TECHNICIAN AM REPRODUCTION TECHNICIAN Joce Bailey M.D. LAB BLOOD ADD-ON Performing Organization Address City/State/ZIP Code Phon e Number [facility] [address] [place] [address] [place] [address] Laboratory Medicine and Pathology [address] [place] [address] Dr. [place] (ABNORMAL) Uric Acid (05/11/2019 9:20 AM REPRODUCTION TECHNICIAN) P athologist Signature Uric Acid, S 9.9 (H) 3.7 - 8.0 05/11/2019 [place] mg/dL 4:22 PM REPRODUCTION TECHNICIAN Specimen Anatomical Collection Method Collection Time Receive d Time (Source) Location / / Volume Laterality Blood (Blood, 05/11/2019 9:20 AM 05/11/20 4:01 Venous) REPRODUCTION TECHNICIAN PM REPRODUCTION TECHNICIAN Joce Bailey M.D. LAB BLOOD ADD-ON Performing Organization Address City/State/ZIP Code Phon e Number [facility]- [address] [place] [address] [facility] [place] [facility] [place], [place] [id number] [place] [address] (ABNORMAL) Comprehensive Metabolic Panel (05/11/2019 9:20 AM REPRODUCTION TECHNICIAN) Analysis Performed At Patho logist Time Signature Potassium, S 3.4 (L) 3.6 - 5.2 05/11/2019 [place] mmol/L 2:34 PM REPRODUCTION TECHNICIAN Sodium, S 139 135 - 145 05/11/2019 [place] mmol/L 2:34 PM REPRODUCTION TECHNICIAN Chloride, S 98 98 - 107 05/11/2019 [place] mmol/L 2:34 PM REPRODUCTION TECHNICIAN Bicarbonate, S 24 22 - 29 05/11/2019 [place] mmol/L 2:34 PM REPRODUCTION TECHNICIAN Anion Gap 17 (H) 7 - 15 05/11/2019 [place] 2:34 PM REPRODUCTION TECHNICIAN BUN (Blood Urea 51 (H) 8 - 24 05/11/2019 [place] Nitrogen), S mg/dL 2:34 PM REPRODUCTION TECHNICIAN Creatinine 3.01 (H) 0.74 - 05/11/2019 [place] 1.35 mg/dL 2:34 PM REPRODUCTION TECHNICIAN eGFR-Non 21 (L) >=60 05/11/2019 [place] Black/ mL/min/BSA 2:34 PM REPRODUCTION TECHNICIAN Tajik Comment: ----ADDITIONAL INFORMATION---- Estimated GFR calculated using the 2009 CKD_EPI creatinine equation. eGFR-Black/ 24 (L) >=60 mL/min/BSA 2018 2:34 PM REPRODUCTION TECHNICIAN OW[place] Comment: ----ADDITIONAL INFORMATION---- Estimated GFR calculated using the 2009 CKD_EPI creatinine equation. Calcium, Total, S 9.2 8.8 - 10.2 mg/dL 05/11/2019 2:34 PM REPRODUCTION TECHNICIAN OW[place] Glucose, S 119 70 - 140 mg/dL 05/11/2019 2:34 PM REPRODUCTION TECHNICIAN O YAO Protein, Total, S 6.5 6.3 - 7.9 g/dL 05/11/2019 2:34 P M REPRODUCTION TECHNICIAN [place] Albumin, S 4.2 3.5 - 5.0 g/dL 05/11/2019 2:34 PM REPRODUCTION TECHNICIAN O YAO Aspartate Aminotransferase 24 8 - 48 U/L 05/11/2019 2 :34 PM REPRODUCTION TECHNICIAN [place] (AST), S Alkaline Phosphatase, S 84 40 - 129 U/L 05/11/2019 2: 34 PM REPRODUCTION TECHNICIAN OW[place] Alanine Aminotransferase (ALT), 22 7 - 55 U/L 019 2:34 PM REPRODUCTION TECHNICIAN OWAT S Bilirubin, Total, S 0.5 <=1.2 mg/dL 05/11/2019 2:34 PM REPRODUCTION TECHNICIAN OW[place] Specimen Anatomical Collection Method Collection Time Receive d Time (Source) Location / / Volume Laterality Blood (Blood, 05/11/2019 9:20 AM 05/11/20 1:34 Venous) REPRODUCTION TECHNICIAN PM REPRODUCTION TECHNICIAN Willis Mcdermott M.D. LAB BLOOD ADD-ON Performing Organization Address City/State/ZIP Code Phon e Number [facility]- [address] [place] [address] [place] [facility] [place] [address] System in [place] [address] (ABNORMAL) Tacrolimus, B (05/11/2019 9:20 AM REPRODUCTION TECHNICIAN) P athologist Signature Tacrolimus, B 2.4 (L) 5.0-15.0 05/12/2019 [facility] (Trough) 1:04 PM REPRODUCTION TECHNICIAN ng/mL Comment: ----ADDITIONAL INFORMATION---- Target steady-state trough concentration s vary depending on the type of transplant, concomitant immunosuppressio n, clinical/institutional protocols, and time post-transplant. Results should be interpreted in conjunction with this clinical information and any physic al signs/symptoms of rejection/toxicity. Testing performed by Liquid Chromatograp hy-Tandem Mass Spectrometry (LC-MS/MS). This test was developed and its performa nce characteristics determined by [facility] in a manner consistent with CLIA requirements. This test has not been cleared or approved by the U.S. Mer d and Drug Administration. Specimen Anatomical Collection Method Collection Time Receive d Time (Source) Location / / Volume Laterality Blood (Blood, 05/11/2019 9:20 AM 05/12/20 7:37 Venous) REPRODUCTION TECHNICIAN AM REPRODUCTION TECHNICIAN Willis Mcdermott M.D. LAB BLOOD NON ADD-ON Performing Organization Address City/State/ZIP Code Phon e Number [facility] [address] [place] [address] [facility] [place] [address] Laboratory Medicine and Pathology [address] [place] (ABNORMAL) Microalbumin, Random, Urine (05/11/2019 9:10 AM REPRODUCTION TECHNICIAN) Patholo gist Method Time Signature Microalbumin 193.0 mg/L 05/11/2019 [place] 2:39 PM REPRODUCTION TECHNICIAN Creatinine 142 mg/dL 05/11/2019 [place] 2:39 PM REPRODUCTION TECHNICIAN Albumin/Creatinin 136 (H) <17 mg/g 05/11/2019 [place] e Ratio 2:39 PM REPRODUCTION TECHNICIAN Specimen Anatomical Collection Method Collection Time Receive d Time (Source) Location / / Volume Laterality Urine (Urine, 05/11/2019 9:10 AM 05/11/20 1:35 Voided) REPRODUCTION TECHNICIAN PM REPRODUCTION TECHNICIAN Joce Bailey M.D. LAB URINE ORDERABLES Performing Organization Address City/State/ZIP Code Phon e Number [facility]- [address] [place] [address] [place] [address] System in [place] [address] (ABNORMAL) Urinalysis with Microscopic: Urine, Voided (05/11/2019 9:10 AM REPRODUCTION TECHNICIAN) P athologist Signature Source Midstream 05/11/2019 FB60 11:07 AM REPRODUCTION TECHNICIAN Clarity Clear Clear 05/11/2019 FB60 11:08 AM REPRODUCTION TECHNICIAN Color Yellow 05/11/2019 FB60 11:08 AM REPRODUCTION TECHNICIAN Comment: ----REFERENCE VALUE---- Colorless Yellow Bhakti Blood Moderate (A) Negative 05/11/2019 11:08 AM REPRODUCTION TECHNICIAN FB6 0 Nitrite Negative Negative 05/11/2019 11:08 AM REPRODUCTION TECHNICIAN FB60 Leukocyte Esterase Negative Negative 05/11/2019 11:[address] FB60 Protein 30 (A) mg/dL 05/11/2019 11:08 AM REPRODUCTION TECHNICIAN FB60 Comment: ----REFERENCE VALUE---- Negative Trace Glucose Negative Negative mg/dL 05/11/2019 11:08 AM REPRODUCTION TECHNICIAN F B60 Ketones, QI(U) Negative Negative mg/dL 05/11/2019 11:08 AM REPRODUCTION TECHNICIAN FB60 Bilirubin Negative Negative 05/11/2019 11:08 AM REPRODUCTION TECHNICIAN FB60 pH 6.0 5.0 - 8.0 05/11/2019 11:08 AM REPRODUCTION TECHNICIAN FB60 Specific [place] 1.010 1.001 - 1.035 05/11/2019 11:08 AM REPRODUCTION TECHNICIAN FB60 Urobilinogen 0.2 0.2 - 1.0 mg/dL 05/11/2019 11:[address] FB60 White Blood Cells None Seen /hpf 05/11/2019 11:08 AM CS T FB60 Comment: ----REFERENCE VALUE---- Males: 0-3 Females: 0-10 Unknown: 0-10 Red Blood Cells 3-10 (A) 0 - 2 /hpf 05/11/2019 11:08 AM REPRODUCTION TECHNICIAN FB60 Dysmorphic Red Blood Cells <=25 <=25 % 05/11/2019 11 :08 AM REPRODUCTION TECHNICIAN FB60 Squamous Cells Occ-3 /hpf 05/11/2019 11:08 AM REPRODUCTION TECHNICIAN F B60 Specimen Anatomical Collection Method Collection Time Receive d Time (Source) Location / / Volume Laterality Urine (Urine, 05/11/2019 9:10 AM 05/11/20 19 9:31 Voided) REPRODUCTION TECHNICIAN AM REPRODUCTION TECHNICIAN Joce Bailey M.D. LAB URINE ORDERABLES Performing Organization Address City/State/ZIP Code Phon e Number [facility]- [facility] [address] [place], [place] [id number] [place] [address] LAB FB60 [place] [address] [address] documented in this encounter Visit Diagnoses Diagnosis Hypertension And Chronic Kidney Disease Stage 4 (HCC) Transplant Liver (HCC) Medication Therapy Property Economist Not Anticoa gulant documented in this encounter Additional Health Concerns Assessment Noted Time PHQ-9 Depression Total Score: 5 03/02/2019 10:51 AM CD T documented as of this encounter Care Teams Clinical Appeals Reviewer Relationship Specialty Start Date End Date Elsewhere, Pcp PCP - General Family Medicine 07/29/17 documented as of this encounter
--- OUTSIDE RECORDS SUMMARY | 2022-04-13 12:30 | XMS_ITS | Encounter Summary ---
:1955 Author Organization [facility] Address [address] [place] [address] Care Team Providers Name Role Phone Elsewhere, Pcp Primary Care Provider Unavailable Reason for Visit Reason Onset Date Comments Appointment 06/25/2019 Encounter Details Date Type Department Care Team Description 06/25/2019 Clinical Communication Division of Nephrology Joel monae, Appointment and Hypertension in Sada Hobson [place], [place] [address] [facility] [address] [place] [phone] Social History Tobacco Use Types Packs/Day Years [...] Date Recorded Male 05/16/2020 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 - 06/28/2019 1:24 PM GLASS DRILLER I don't need US before his visit with me. I can see him on Aug 16 and have him get US on Aug 17 S DRILLER Telephone Encounter - Joce Bailey M.D. - 06/25/2019 1:32 PM GLASS DRILLER I can see him on Aug 16 in the afternoon. Please let me know if blood and urine test are ordered. S DRILLER Telephone Encounter - Rosio Santamaria - 06/25/2019 11:[address] Bailey, Mr Singh is scheduled for his annual liver check on August 16 and . He is also scheduled to see you around that time. You are on research. Would you like to see him or have him do testing and review? Please advise. Thank you Rosio S DRILLER Telephone Encounter - Rosio Santamaria - 06/25/2019 11:[address] Bailey.. Mr Singh is scheduled for hisI am annual liver checkup on 08/16/19 thru 08/17/19. I am also due to see you..Could you schedule an appt for us during that time as well as blood test included with the other ones..blood tests are on 08/16/19 at 6:10 am..Thankyou.Bruce Singh S DRILLER documented in this encounter Plan of Treatment Upcoming Encounters Date Type Specialty Care Team Description 04/24/2022 Appointment Laboratory Medicine Angélica Granger P.A.-C. [address] [place] [phone] 04/25/2022 Office Visit Otorhinolaryngology Dex Matta APRN, C.N.P., M.S.N. [address] [place] [phone] 05/08/2022 Appointment Laboratory Medicine Angélica Granger P.A.-CDemetrius [address] [place] [phone] 05/08/2022 Clinical Admitting/Central Communication Scheduling 05/10/2022 Appointment Radiology Jeremie Rose M.D. [address] [place] [phone] 05/10/2022 Comprehensive Visit Orthopedic Surgery Warner Graves M.D. [address] [place] [address] [phone] 05/22/2022 Appointment Laboratory Medicine Angélica Granger P.A.-CDemetrius [address] [place] [address] [phone] 06/05/2022 Appointment Laboratory Medicine Angélica Granger P.A.-C. [address] [place] [phone] 06/19/2022 Appointment Laboratory Medicine Angélica Granger P.A.-C. [address] [place] [phone] 07/03/2022 Appointment Laboratory Medicine Angélica Granger P.A.-C. [address] [place] [phone] 07/17/2022 Appointment Laboratory Angélica Royal P.A.-C. [address] [place] [phone] 07/31/2022 Appointment Laboratory Angélica Royal P.A.-C. [address] [place] [phone] 08/14/2022 Appointment Laboratory Angélica Royal P.A.-C. [address] [place] [phone] 08/28/2022 Appointment Laboratory Angélica Royal P.A.-C. [address] [place] [phone] documented as of this encounter Visit Diagnoses Not on filedocumented in this encounter Additional Health Concerns Assessment Noted Time PHQ-9 Depression Total Score: 5 03/02/2019 10:51 AM CD T documented as of this encounter Care Teams Chemical Waste Management Technician Relationship Specialty Start Date End Date Elsewhere, Pcp PCP - General Family Medicine 07/29/17 documented as of this encounter
--- OUTSIDE RECORDS SUMMARY | 2022-04-13 12:30 | XMS_ITS | Encounter Summary ---
:1955 Author Organization [facility] Address [address] [place] [address] Care Team Providers Name Role Phone Elsewhere, Pcp Primary Care Provider Unavailable Reason for Referral Transplant (Routine) - Closed Specialty Diagnoses / Procedures Referred By Contact Refer red To Contact Transplant Surgery / Diagnoses Transplant Liver (HCC) Medication Therapy Penitentiary Not Anticoagulant Angélica Granger [facility] P.A.-C. [address] [place] [address] Referral ID Status Reason Start Date Expiration Date Visits Requ ested Visits Authorized [id number] Closed 06/21/2019 06/20/2020 1 1 Scheduling Instructions Patient to see Dr. Douglas JACKER Transplant (Routine) - Closed Specialty Diagnoses / Procedures Referred By Contact Refer red To Contact Transplant Surgery / Diagnoses Transplant Liver (HCC) Medication Therapy Penitentiary Not Anticoagulant Angélica Granger [facility] P.A.-C. [address] [place] [address] Referral ID Status Reason Start Date Expiration Date Visits Requ ested Visits Authorized [id number] Closed 06/21/2019 06/20/2020 1 1 JACKER Transplant (Routine) - Closed Specialty Diagnoses / Procedures Referred By Contact Refer red To Contact Transplant Surgery / Diagnoses Transplant Liver (HCC) Medication Therapy Tower Truck Driver Not Anticoagulant Angélica Granger [facility] P.A.-C. [address] [place] [address] Referral ID Status Reason Start Date Expiration Date Visits Requ ested Visits Authorized [id number] Closed 06/21/2019 06/20/2020 1 1 JACKER Transplant (Routine) - Closed Specialty Diagnoses / Procedures Referred By Contact Refer red To Contact Transplant Surgery / Diagnoses Transplant Liver (HCC) Medication Therapy Penitentiary Not Anticoagulant Angélica Granger, [facility] Transplant P.A.-C. [address] [place] [phone] Referral ID Status Reason Start Date Expiration Date Visits Requ ested Visits Authorized [id number] Closed 06/21/2019 06/20/2020 1 1 JACKER Encounter Details Date Type Department Care Team Description 06/21/2019 Orders Only Blanca Luis Tr ansplant Liver (HCC) (Primary Dx); Center for M, R.N. 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 [address] [place] [phone] 04/25/2022 Office Visit Otorhinolaryngology Dex Matta, RAMONA, C.N.P., M.S.N. [address] [place] [phone] 05/08/2022 Appointment Laboratory Medicine Angélica Granger P.A.-CDemetrius [address] [place] [phone] 05/08/2022 Clinical Admitting/Central Communication Scheduling 05/10/2022 Appointment Radiology Jeremie Rose M.D. [address] [place] [phone] 05/10/2022 Comprehensive Visit Orthopedic Surgery Warner Graves M.D. [address] [place] [phone] 05/22/2022 Appointment Laboratory Medicine Angélica Granger P.A.-C. [address] [place] [phone] 06/05/2022 Appointment Laboratory Medicine Angélica Granger P.A.-C. [address] [place] [phone] 06/19/2022 Appointment Laboratory Medicine Angélica Granger P.A.-C. [address] [place] [phone] 07/03/2022 Appointment Laboratory Medicine Angélica Granger P.A.-C. [address] [place] [phone] 07/17/2022 Appointment Laboratory Medicine Angélica Granger P.A.-C. [address] [place] [phone] 07/31/2022 Appointment Laboratory Medicine Angélica Granger P.A.-C. [address] [place] [phone] 08/14/2022 Appointment Laboratory Medicine Angélica Granger P.A.-C. [address] [place] [phone] 08/28/2022 Appointment Laboratory Medicine Angélica Granger P.A.-C. [address] [place] [phone] Scheduled Orders Name Type Priority Associated Diagnoses Order S chedule Short renal clearance: Procedures Routine Transplan t Liver (HCC) Expected: Iothalamate (Renal Medication Therapy [place] g 08/16/2019 Studies Unit) Term Not Anticoagulant (Kenisha roximate), Expires: 2019 Scheduled Referrals Name Type Priority Associated Diagnoses Order S chedule Transplant Liver Outpatient Referral Routine Transplant Liver (HCC) Expected: office visit Medication Therapy 0 (clinic) Tower Truck Driver Not (Approximate), Anticoagulant Expires: 06/21/2020 Transplant Liver Outpatient Referral Routine Transplant Liver (HCC) Expected: office visit Medication Therapy 0 (clinic) Tower Truck Driver Not (Approximate), Anticoagulant Expires: 06/21/2020 Transplant Liver Outpatient Referral Routine Transplant Liver (HCC) Expected: office visit Medication Therapy 0 (clinic) Penitentiary Not (Approximate), Anticoagulant Expires: 06/21/2020 Transplant Liver Outpatient Referral Routine Transplant Liver (HCC) Expected: office visit Medication Therapy 0 (clinic) Tower Truck Driver Not (Approximate), Anticoagulant Expires: 06/21/2020 documented as of this encounter Results US Liver Transplant (11/22/2019 [...] unchanged compared MRI of the abdomen fr 09/20/2011. Right kidney: Length: 9.8 cm. 1.4 [...] unchanged compared MRI of the abdomen fr 09/20/2011. Right kidney: Length: 9.8 cm. 1.4 [...] disease. Angélica Granger P.A.-C. IMG US PROCEDURES DX Chest AP or PA [...] upper quadrant. No change since . Angélica Granger P.A.-C. IMG DIAGNOSTIC IMAGING PROCE DURES (ABNORMAL) Tacrolimus, B (11/17/2019 9:29 AM CDT) P athologist Signature Tacrolimus, B 1.7 (L) 5.0-15.0 11/17/2019 SDSC (Trough) 5:32 PM CDT ng/mL Comment: ----ADDITIONAL [...] and its performa nce characteristics determined by [facility] in a manner consistent with CLIA requirements. This test has not been cleared or approved by the U.S. Mer d and Drug Administration. Specimen Anatomical Collection Method Collection Time Receive d Time (Source) Location / / Volume Laterality Blood (Blood, 11/17/2019 9:29 AM 11/17/19 1:58 Venous) CDT PM CDT Angélica Granger P.A.-C. LAB BLOOD NON ADD-ON Performing Organization Address [facility] Phon e Number [facility] [address] [place] [address] [address] Laboratory Medicine and Pathology [address] [place] PSA (Prostate-Specific Antigen) Screen (11/17/2019 9:29 AM CDT) athologist Signature Prostate-Specif 0.40 <=4.5 ng/mL 11/17/2019 [facility] ic Ag 12:21 PM CDT Comment: ----ADDITIONAL [...] P.A.-C. LAB BLOOD ADD-ON Performing Organization Address City/[facility]/ZIP [facility] Phon e Number [facility] - [address] [place], [place] [address] [facility] [place] [address] Laboratories-[facility] [address] (ABNORMAL) CBC no call back, reflex T/S HGB <8 (11/17/2019 9:29 AM CDT) [facility] gist Method Time Signature Hemoglobin 10.1 [...] LAB BLOOD NON ADD-ON Performing Organization Address City/State/[facility] Phon e Number [facility] - [address] (ABNORMAL) S-TSH (Thyroid-Stimulating Hormone - Sensitive) (11/17/2019 9:29 AM CDT) P athologist Signature TSH, Sensitive 6.1 (H) 0.3 - 4.2 11/17/2019 DTL mIU/L 12:21 PM CDT Specimen Anatomical Collection Method Collection Time Receive d Time (Source) Location / / Volume Laterality Blood (Blood, 11/17/2019 9:29 AM 11/17/19 9:49 Venous) CDT AM CDT Angélica Granger P.A.-C. LAB BLOOD ADD-ON Performing Organization Address City/[facility] Phon e Number [facility] - [id number] [place] [address] Hemoglobin A1c (11/17/2019 9:29 AM CDT) P athologist Signature Hemoglobin A1c, 5.5 4.0 - 5.6 11/17/2019 DTL B % 10:03 AM CDT Specimen Anatomical Collection Method Collection Time Receive d Time (Source) Location / / Volume Laterality Blood (Blood, 11/17/2019 9:29 AM 11/17/19 20 9:49 Venous) CDT AM CDT Angélica Granger P.A.-C. LAB BLOOD ADD-ON Performing Organization Address City/[facility] Phon e Number [facility] - 200 [place], [place] [address] (ABNORMAL) Comprehensive Metabolic Panel (11/17/2019 9:29 [...] 11/17/2019 DTL Black/ mL/min/BSA 11:37 AM CDT Turkish Comment: ----ADDITIONAL INFORMATION---- Estimated GFR calculated using [...] P.A.-C. LAB BLOOD ADD-ON Performing Organization Address City/[facility] Phon e Number [facility] - 200 [place], [place] [address] [facility] [place] [place] [address] [facility] [address] [facility] Mononucleosis RNA/DNA (11/17/2019 9:28 AM CDT) Analysis Performed At Patho logist Time Signature [place] RNA/DNA Collected DEFAULT 11/17/2019 HSS EDTA x 2 9:28 AM CDT [place] RNA/DNA Collected DEFAULT 11/17/2019 S NaHep 9:28 AM CDT Specimen Anatomical Collection Method Collection Time Receive d Time (Source) Location / / Volume Laterality Blood (Blood, 11/17/2019 9:28 AM 11/17/19 9:28 Venous) CDT AM CDT Narrative [facility] - [facility] - 11/17/2019 9:28 AM CDT Specimen Information: Specimen ID: [id number] Specimen Type: Blood Specimen Collection Start Date: 11/17/19 ??9:28 AM Specimen Received Date: 11/17/2019 ??9:2 8 AM Specimen ID: [id number] Specimen Type: Blood Specimen Collection Start Date: 11/17/19 ??9:28 AM Specimen Received Date: 11/17/2019 ??9:2 8 AM Specimen ID: [id number] Specimen Type: Blood Specimen Collection Start Date: 11/17/19 ??9:28 AM Specimen Received Date: 11/17/2019 ??9:2 8 AM Angélica Granger P.A.-C. LAB BLOOD NON ADD-ON Performing Organization Address City/[facility] Phon e Number [facility] - 200 [place], [place] [address] [place] [address] [facility] 200 [facility] Organ Liver TX (11/17/2019 9:28 AM CDT) Analysis Performed At Patho logist Time Signature Organ Liver [place] Collected DEFAULT 11/17/2019 [facility] 9:28 AM CDT Specimen Anatomical Collection Method Collection Time Receive d Time (Source) Location / / Volume Laterality Blood (Blood, 11/17/2019 9:28 AM 11/17/19 9:28 Venous) CDT AM CDT Angélica Granger P.A.-C. LAB BLOOD NON ADD-ON Performing Organization Address City/[facility] Phon e Number [facility] - 200 [place], [place] [address] [facility] [place] [address] [facility] [address] [facility] Prothrombin Time (PT) (11/17/2019 9:28 AM CDT) athologist Signature Prothrombin 11.6 9.4 - 12.5 [...] P.A.-C. LAB BLOOD ADD-ON Performing Organization Address City/[facility] Phon e Number [facility] - [address] [place] [address] [facility] [place] [address] [facility] 200 [facility] (ABNORMAL) Lipid Panel (11/17/2019 9:28 AM CDT) [...] P.A.-C. LAB BLOOD ADD-ON Performing Organization Address City/[facility] Phon e Number [facility] - [address] Bilirubin, Direct (11/17/2019 9:28 AM CDT) P athologist Signature Bilirubin, <0.2 0.0 - 0.3 11/17/2019 DTL Direct, S mg/dL 11:56 AM CDT Specimen Anatomical Collection Method Collection Time Receive d Time (Source) Location / / Volume Laterality Blood (Blood, 11/17/2019 9:28 AM 11/17/19 9:49 Venous) CDT AM CDT Angélica Granger P.A.-C. LAB BLOOD ADD-ON Performing Organization Address City/[facility] Phon e Number [facility] - [address] documented in this encounter Visit Diagnoses Diagnosis Transplant Liver (HCC) - Primary Medication Therapy Tower Truck Driver Not Anticoa gulant Screening Examination Prostate Cancer Osteoporosis Chronic Kidney Disease Chronic Kidney Disease Stage 4 Glomerula r Filtration Rate 15-29 (HCC) Transplant Liver (HCC) Medication Therapy Tower Truck Driver Not Anticoa gulant Chronic Kidney Disease Osteoporosis Screening Examination Prostate Cancer Transplant Liver (HCC) Medication Therapy Tower Truck Driver Not Anticoa gulant Transplant Liver (HCC) Medication Therapy Tower Truck Driver Not Anticoa gulant documented in this encounter Additional Health Concerns Assessment Noted Time PHQ-9 Depression Total Score: 5 03/02/2019 10:51 AM CD T documented as of this encounter Care Teams Hire Car Driver Relationship Specialty Start Date End Date Elsewhere, Pcp PCP - General Family Medicine 07/29/17 documented as of this encounter
--- OUTSIDE RECORDS SUMMARY | 2022-04-13 12:30 | XMS_ITS | Encounter Summary ---
:1955 Author Organization [facility] Address [address] [place] [address] Care Team Providers Name Role Phone Elsewhere, Pcp Primary Care Provider Unavailable Reason for Visit Reason Comments Med Refill Encounter Details Date Type Department Care Team Description 06/07/2019 Refill Division of Nephrology and Ammon jalloh M.D. 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 [address] [place] [phone] 04/25/2022 Office Visit Otorhinolaryngology Dex Matta APRN, C.N.P., M.S.N. [address] [place] [phone] 05/08/2022 Appointment Laboratory Medicine Angélica Granger P.A.-CDemetrius [address] [place] [phone] 05/08/2022 Clinical Admitting/Central Communication Scheduling 05/10/2022 Appointment Radiology Jeremie Rose M.D. [address] [place] [phone] 05/10/2022 Comprehensive Visit Orthopedic Surgery Warner Graves M.D. [address] [place] [phone] 05/22/2022 Appointment Laboratory Medicine Angélica Granger P.A.-CDemetrius [address] [place] [phone] 06/05/2022 Appointment Laboratory Medicine Angélica Granger P.A.-C. [address] [place] [phone] 06/19/2022 Appointment Laboratory Medicine Angélica Granger P.A.-C. [address] [place] [phone] 07/03/2022 Appointment Laboratory Medicine Angélica Granger P.A.-C. [address] [place] [phone] 07/17/2022 Appointment Laboratory Medicine Angélica Granger P.A.-C. [address] [place] [phone] 07/31/2022 Appointment Laboratory Medicine Angélica Granger P.A.-C. [address] [place] [phone] 08/14/2022 Appointment Laboratory Angélica Royal P.A.-C. [address] [place] [phone] 08/28/2022 Appointment Laboratory Medicine Angélica Granger P.A.-C. [address] [place] [phone] documented as of this encounter Visit Diagnoses Diagnosis Chronic Kidney Disease Stage 4 Glomerula r Filtration Rate 15-29 (HCC) - Primary documented in this encounter Additional Health Concerns Assessment Noted Time PHQ-9 Depression Total Score: 5 03/02/2019 10:51 AM CD T documented as of this encounter Care Teams Investment Counselor Relationship Specialty Start Date End Date Elsewhere, Pcp PCP - General Family Medicine 07/29/17 documented as of this encounter
--- OUTSIDE RECORDS SUMMARY | 2022-04-13 12:30 | XMS_ITS | Encounter Summary ---
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 [address] [place] [phone] 04/25/2022 Office Visit Otorhinolaryngology Dex Matta APRN, C.N.P., M.S.N. [address] [place] [phone] 05/08/2022 Appointment Laboratory Medicine Angélica Granger P.A.-CDemetrius [address] [place] [phone] 05/08/2022 Clinical Admitting/Central Communication Scheduling 05/10/2022 Appointment Radiology Jeremie Rose M.D. [address] [place] [phone] 05/10/2022 Comprehensive Visit Orthopedic Surgery Warner Graves M.D. [address] [place] [phone] 05/22/2022 Appointment Laboratory Medicine Angélica Granger P.A.-C. [address] [place] [phone] 06/05/2022 Appointment Laboratory Medicine Angélica Granger P.A.-C. [address] [place] [phone] 06/19/2022 Appointment Laboratory Medicine Angélica Granger P.A.-C. [address] [place] [phone] 07/03/2022 Appointment Laboratory Medicine Angélica Granger P.A.-C. [address] [place] [phone] 07/17/2022 Appointment Laboratory Medicine Angélica Granger P.A.-C. [address] [place] [phone] 07/31/2022 Appointment Laboratory Medicine Angélica Granger P.A.-C. [address] [place] [phone] 08/14/2022 Appointment Laboratory Medicine Angélica Granger P.A.-C. [address] [place] [phone] 08/28/2022 Appointment Laboratory Medicine Angéliac Granger P.A.-C. [address] [place] [phone] documented as of this encounter Visit Diagnoses Diagnosis Hypertension Essential Primary documented in this encounter Additional Health Concerns Assessment Noted Time PHQ-9 Depression Total Score: 5 03/02/2019 10:51 AM CD T documented as of this encounter Care Teams Car Chaser Relationship Specialty Start Date End Date Elsewhere, Pcp PCP - General Family Medicine 07/29/17 documented as of this encounter
--- OUTSIDE RECORDS SUMMARY | 2022-04-13 12:30 | XMS_ITS | Encounter Summary ---
:1955 Author Organization [facility] Address [address] [place] [address] Care Team Providers Name Role Phone Elsewhere, Pcp Primary Care Provider Unavailable Encounter Details Date Type Department Care Team Description 06/21/2019 Orders Only Blanca Luis ansplant Liver (HCC) (Primary Dx); Center for M, R.N. 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 [address] [place] [phone] 05/08/2022 Appointment Laboratory Medicine Angélica Granger P.A.-CDemetrius [address] [place] [phone] 05/08/2022 Clinical Admitting/Central Communication Scheduling 05/10/2022 Appointment Radiology Jeremie Rose M.D. [address] [place] [phone] 05/10/2022 Comprehensive Visit Orthopedic Surgery Warner Graves M.D. [address] [place] [phone] 05/22/2022 Appointment Laboratory Medicine Angélica Granger P.A.-CDemetrius [address] [place] [phone] 06/05/2022 Appointment Laboratory Medicine Angélica Granger P.A.-C. [address] [place] [phone] 06/19/2022 Appointment Laboratory Medicine Angélica Granger P.A.-C. [address] [place] [phone] 07/03/2022 Appointment Laboratory Medicine Angélica Granger P.A.-C. [address] [place] [phone] 07/17/2022 Appointment Laboratory Medicine Angélica Granger P.A.-C. [address] [place] [phone] 07/31/2022 Appointment Laboratory Medicine Angélica Granger P.A.-C. [address] [place] [phone] 08/14/2022 Appointment Laboratory Medicine Angélica Granger P.A.-C. [address] [place] [phone] 08/28/2022 Appointment Laboratory Medicine Angélica Granger P.A.-C. [address] [place] [phone] documented as of this encounter Visit Diagnoses Diagnosis Transplant Liver (HCC) - Primary Medication Therapy Bladder Tier Not Anticoa gulant documented in this encounter Additional Health Concerns Assessment Noted Time PHQ-9 Depression Total Score: 5 03/02/2019 10:51 AM CD T documented as of this encounter Care Teams Cutting Department Supervisor Relationship Specialty Start Date End Date Elsewhere, Pcp PCP - General Family Medicine 07/29/17 documented as of this encounter
--- OUTSIDE RECORDS SUMMARY | 2022-04-13 12:30 | XMS_ITS | Encounter Summary ---
:1955 Author Organization [facility] Address [address] [place] [address] Care Team Providers Name Role Phone Elsewhere, Pcp Primary Care Provider Unavailable Encounter Details Date Type Department Care Team Description 05/13/2019 Documentation Division of Nephrology and Florence Wren, Hypertension in [place], Ph.D. 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 - 05/13/2019 2:40 PM CST This is a supervisory note to Dr. Joce Bailey. Mr. 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 He has chronic kidney disease stage 4. 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 He is listed for kidney transplant, but currently not active with recent GFR estimated at 20 mL/min. His blood pressure is 130/69 in the office today. He is experiencing bradycardia but this is a long-term issue for him. He is very fit, having done wrestling, is active with weights and fitness activities in the gym. I suggested he could decrease the doxazosin from 8 mg to 4 mg followed by decreasing the beta-georgina, gradually weaning off it at the current dose to see if his fatigue improves. We suspect, however, that his fatigue may be due to his advanced renal insufficiency. He will be attending the treatment options class. 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 [address] [place] [phone] 04/25/2022 Office Visit Otorhinolaryngology Dex Matta APRN, C.N.P., M.S.N. [address] [place] [phone] 05/08/2022 Appointment Laboratory Medicine Angélica Granger P.A.-C. [address] [place] [phone] 05/08/2022 Clinical Admitting/Central Communication Scheduling 05/10/2022 Appointment Radiology Jeremie Rose M.D. [address] [place] [phone] 05/10/2022 Comprehensive Visit Orthopedic Surgery Warner Graves M.D. [address] [place] [phone] 05/22/2022 Appointment Laboratory Medicine Angélica Granger P.A.-C. [address] [place] [address] [phone] 06/05/2022 Appointment Laboratory Medicine Angélica Granger P.A.-C. [address] [place] [phone] 06/19/2022 Appointment Laboratory Medicine Angélica Granger P.A.-C. [address] [place] [phone] 07/03/2022 Appointment Laboratory Medicine Angélica Granger P.A.-C. [address] [place] [phone] 07/17/2022 Appointment Laboratory Medicine Angélica Granger P.A.-C. [address] [place] [phone] 07/31/2022 Appointment Laboratory Medicine Angélica Granger P.A.-C. [address] [place] [phone] 08/14/2022 Appointment Laboratory Medicine Angélica Granger P.A.-C. [address] [place] [phone] 08/28/2022 Appointment Laboratory Medicine Angélica Granger P.A.-C. [address] [place] [phone] documented as of this encounter Visit Diagnoses Not on filedocumented in this encounter Additional Health Concerns Assessment Noted Time PHQ-9 Depression Total Score: 5 03/02/2019 10:51 AM CD T documented as of this encounter Care Teams Access Manager Relationship Specialty Start Date End Date Elsewhere, Pcp PCP - General Family Medicine 07/29/17 documented as of this encounter
--- OUTSIDE RECORDS SUMMARY | 2022-04-13 12:31 | XMS_ITS | Encounter Summary ---
:1955 Author Organization [facility] Address [address] [place] [address] Care Team Providers Name Role Phone Elsewhere, Pcp Primary Care Provider Unavailable Encounter Details Date Type Department Care Team Description 04/09/2019 Hospital Encounter Department of Angélica Granger ant Liver (HCC); Laboratory Medicine J PDemetriusADurgaC. 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 [address] [place] [phone] 04/25/2022 Office Visit Otorhinolaryngology Dex Matta APRN, C.N.P., M.S.N. [address] [place] [phone] 05/08/2022 Appointment Laboratory Medicine Angélica Granger P.A.-C. [address] [place] [phone] 05/08/2022 Clinical Admitting/Central Communication Scheduling 05/10/2022 Appointment Radiology Jeremie Rose M.D. [address] [place] [phone] 05/10/2022 Comprehensive Visit Orthopedic Surgery Warner Graves M.D. [address] [place] [phone] 05/22/2022 Appointment Laboratory Medicine Angélica Granger P.A.-C. [address] [place] [phone] 06/05/2022 Appointment Laboratory Medicine Angélica Granger P.A.-C. [address] [place] [phone] 06/19/2022 Appointment Laboratory Medicine Angélica Granger P.A.-C. [address] [place] [phone] 07/03/2022 Appointment Laboratory Medicine Angélica Granger P.A.-C. [address] [place] [phone] 07/17/2022 Appointment Laboratory Medicine Angélica Granger P.A.-C. [address] [place] [phone] 07/31/2022 Appointment Laboratory Medicine Angélica Granger P.A.-C. [address] [place] [address] [phone] 08/14/2022 Appointment Laboratory Medicine Angélica Granger P.A.-C. [address] [place] [address] [phone] 08/28/2022 Appointment Laboratory Medicine Angélica Granger P.A.-C. [address] [place] [address] [phone] documented as of this encounter Visit Diagnoses Diagnosis Transplant Liver (HCC) Medication Therapy Merchandise Flow Associate Not Anticoa gulant documented in this encounter Additional Health Concerns Assessment Noted Time PHQ-9 Depression Total Score: 5 03/02/2019 10:51 AM CD T documented as of this encounter Care Teams Slurry Tank Operator Relationship Specialty Start Date End Date Elsewhere, Pcp PCP - General Family Medicine 07/29/17 documented as of this encounter
--- OUTSIDE RECORDS SUMMARY | 2022-04-13 12:31 | XMS_ITS | Encounter Summary ---
:1955 Author Organization [facility] Address [address] [place] [address] Care Team Providers Name Role Phone Elsewhere, Pcp Primary Care Provider Unavailable Reason for Visit Outpatient (Routine) - Closed Specialty Diagnoses / Procedures Referred By Contact Refer red To Contact Radiology Diagnoses Pretransplant Recipient Evaluation Exam Chronic Kidney Disease Stage 4 Glomerular Filtration Rate 15-29 (HCC) Efrem Mohr M.D. Rst Rad Dx Kari 04 Procedures DX CHEST AP OR PA AND LATERAL 2 VIEWS RAD DX CHEST [address] [place] [address] [place] [phone] [place] [phone] Fax: Referral ID Status Reason Start Date Expiration Date Visits Requ ested Visits Authorized [id number] Closed 03/01/2019 02/29/2020 1 1 Encounter Details Date Type Department Care Team Description 03/01/2019 Hospital Encounter Department of Efrem Mohr Pretrans plant Recipient Evaluation Exam; Radiology, Chance Tomlin Chronic Kidney Disease Stage 4 Glomerula r Filtration Rate 15-29 (HCC) Building, in [address] [place] [address] [place] [phone] [place], [place] [phone] (Work) [phone] Social History Tobacco Use Types Packs/Day Years [...] at Date Recorded Male 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 [address] [place] [phone] 04/25/2022 Office Visit Otorhinolaryngology Dex Matta APRN, C.N.P., M.S.N. [address] [place] [phone] 05/08/2022 Appointment Laboratory Medicine Angélica Granger P.A.-CDemetrius [address] [place] [phone] 05/08/2022 Clinical Admitting/Central Communication Scheduling 05/10/2022 Appointment Radiology Jeremie Rose M.D. [address] [place] [phone] 05/10/2022 Comprehensive Visit Orthopedic Surgery Warner Graves M.D. [address] [place] [phone] 05/22/2022 Appointment Laboratory Medicine Angélica Granger P.A.-C. [address] [place] [address] [phone] 06/05/2022 Appointment Laboratory Medicine Angélica Granger P.A.-C. [address] [place] [address] [phone] 06/19/2022 Appointment Laboratory Medicine Angélica Granger P.A.-C. [address] [place] [phone] 07/03/2022 Appointment Laboratory Medicine Angélica Granger P.A.-C. [address] [place] [address] [phone] 07/17/2022 Appointment Laboratory Medicine Angélica Granger P.A.-C. [address] [place] [address] [phone] 07/31/2022 Appointment Laboratory Medicine Angélica Granger P.A.-C. [address] [place] [address] [phone] 08/14/2022 Appointment Laboratory Medicine Angélica Granger P.A.-C. [address] [place] [address] [phone] 08/28/2022 Appointment Laboratory Medicine Angélica Granger P.A.-C. [address] [place] [phone] documented as of this encounter Procedures Procedure Name Priority Date/Time Associated Diagnosis Comme nts DX CHEST AP OR RAD - Routine 03/01/2019 9:38 Pretransplant Results for this PA AND LATERAL 2 (most inpatients AM CDT Recipient Evaluation procedure are in VIEWS and all Exam the results outpatients) Chronic Kidney section. Disease Stage 4 Glomerular Filtration Rate 15-29 (HCC) documented in this encounter Results DX Chest AP or PA and Lateral 2 Views (03/01/2019 9:38 AM CDT) Anatomical Region Laterality Modality Chest, Thoracic RST LOS, Thoracic ARZ LOS, Thoracic N/A Digital Radiography FLA LOS Specimen (Source) Anatomical Collection Method Collection Time Re ceived Time Location / / Volume Laterality 03/01/2019 10:05 AM CDT Impressions 03/01/2019 10:06 AM CDT Negative chest. RUQ clips. Narrative 03/01/2019 10:06 AM CDT EXAM: ??DX CHEST AP OR PA AND LATERAL 2 VIEWS Procedure Note Jaxson Lion M.D. - 03/01/2019Fo rmatting of this note might be different from the original. EXAM: DX CHEST AP OR PA AND LATERAL 2 EWS IMPRESSION: Negative chest. RUQ clips. Efrem Mohr M.D. [facility] DAREN RAMIRES documented in this encounter Visit Diagnoses Diagnosis Pretransplant Recipient Evaluation Exam Chronic Kidney Disease Stage 4 Glomerula r Filtration Rate 15-29 (HCC) documented in this encounter Additional Health Concerns Assessment Noted Time PHQ-9 Depression Total Score: 2 08/25/2018 9:45 AM RADIO PRODUCER documented as of this encounter Care Teams Buffing Wheel Former Automatic Relationship Specialty Start Date End Date Elsewhere, Pcp PCP - General Family Medicine 07/29/17 documented as of this encounter
--- OUTSIDE RECORDS SUMMARY | 2022-04-13 12:31 | XMS_ITS | Encounter Summary ---
:1955 Author Organization [facility] Address [address] [place] [address] Care Team Providers Name Role Phone Elsewhere, Pcp Primary Care Provider Unavailable Encounter Details Date Type Department Care Team Description 04/09/2019 Orders Only Curt Johnson, Ca lant Liver (HCC) (Primary Dx); Center for Argelia Hernandez R.N., Medication Ther apy Raw Shellfish Preparer Not Anticoagulant Transplantation and C.C.T.C. 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 [address] [place] [phone] 04/25/2022 Office Visit Otorhinolaryngology Dex Matta, RAMONA, C.N.P., M.S.N. [address] [place] [phone] 05/08/2022 Appointment Laboratory Medicine Angélica Granger, P.A.-C. [address] [place] [phone] 05/08/2022 Clinical Admitting/Central Communication Scheduling 05/10/2022 Appointment Radiology Jeremie Rose M.D. [address] [place] [address] [phone] 05/10/2022 Comprehensive Visit Orthopedic Surgery Warner Graves M.D. [address] [place] [phone] 05/22/2022 Appointment Laboratory Medicine Angélica Granger P.A.-C. [address] [place] [phone] 06/05/2022 Appointment Laboratory Medicine Angélica Granger P.A.-C. [address] [place] [phone] 06/19/2022 Appointment Laboratory Medicine Angélica Granger P.A.-C. [address] [place] [phone] 07/03/2022 Appointment Laboratory Angélica Royal P.A.-C. [address] [place] [phone] 07/17/2022 Appointment Laboratory Angélica Royal P.A.-C. [address] [place] [phone] 07/31/2022 Appointment Laboratory Medicine Angélica Granger P.A.-C. [address] [place] [phone] 08/14/2022 Appointment Laboratory Angélica Royal P.A.-C. [address] [place] [phone] 08/28/2022 Appointment Laboratory Angélica Royal P.A.-C. [address] [place] [phone] documented as of this encounter Visit Diagnoses Diagnosis Transplant Liver (HCC) - Primary Medication Therapy Raw Shellfish Preparer Not Anticoa gulant documented in this encounter Additional Health Concerns Assessment Noted Time PHQ-9 Depression Total Score: 5 03/02/2019 10:51 AM CD T documented as of this encounter Care Teams Clinical Nursing Assistant Relationship Specialty Start Date End Date Elsewhere, Pcp PCP - General Family Medicine 07/29/17 documented as of this encounter
--- OUTSIDE RECORDS SUMMARY | 2022-04-13 12:31 | XMS_ITS | Encounter Summary ---
:1955 Author Organization [facility] Address [address] [place] [address] Care Team Providers Name Role Phone Elsewhere, Pcp Primary Care Provider Unavailable Reason for Visit Transplant (Routine) - Closed Specialty Diagnoses / Procedures Referred By Contact Refer red To Contact Transplant Surgery / Diagnoses Pretransplant Recipient Evaluation Exam Chronic Kidney Disease Stage 4 Glomerular Filtration Rate 15-29 (HCC) Efrem Mohr M.D. [facility] [address] [place] [phone] Referral ID Status Reason Start Date Expiration Date Visits Requ ested Visits Authorized [id number] Closed 02/10/2019 02/10/2020 1 1 Encounter Details Date Type Department Care Team Description 03/02/2019 Nurse Only Curt Rene [facility] Efrem Santana M.D. [address] [place] [phone] for Transplantation and Patricia Pinto R.N., C.C.T.C. [address] [place] [phone] Clinical Regeneration in [place], [place] [address] [place] [phone] Social History Tobacco Use Types Packs/Day [...] 12/15/2021 organizations such as hindu groups, unions, fraInvictus Medical or athletic groups, or school groups? 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 - 03/02/2019 7:30 AM CDT Met with Bruce Ceballosudsen for re-evaluation and education as a potential kidney recipient. Patientdid attend the kidney/pancreas education class. Bruce Singh is a 63 y.o. 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 Immunizations were reviewed. If the patient does identify potential living donors, the recipient was encouraged to notify the donors to call their donor coordinator for kits. Paired donation is a procedure that allows individuals who wish to give a kidney to their loved one, but cannot because they are incompatible (they have the wrong blood type or have immunity to their donor kidney). In paired donation, the donor and recipient are matched with another incompatible donor/recipient pair and the kidneys are exchanged between the pairs. The patient previously agreed to participate in the KPD program. Discussions occurred regarding some of the side-effects associated with usp immunosuppression and indicated that some patients would need insulin after the transplant. It was discussed with the patient that [...] Patient's modified Karnofsky performance status scale (%): 90: Able to carry on normal activity (e.g., being preemptively transplanted without immediate indication for dialysis; clinically stable, functionally active recipient on return follow-up visits)90: Able to carry on normal activity and to work; no special care needed: Able to carry on normal activity. documented in this encounter Plan of Treatment Upcoming Encounters Date Type Specialty Care Team Description 04/24/2022 Appointment Laboratory Medicine Angélica Granger P.A.-C. [address] [place] [phone] 04/25/2022 Office Visit Otorhinolaryngology Dex Matta APRN, C.N.P., M.S.N. [address] [place] [phone] 05/08/2022 Appointment Laboratory Medicine Angélica Granger P.A.-C. [address] [place] [phone] 05/08/2022 Clinical Admitting/Central Communication Scheduling 05/10/2022 Appointment Radiology Jeremie Rose M.D. [address] [place] [phone] 05/10/2022 Comprehensive Visit Orthopedic Surgery Warner Graves M.D. [address] [place] [phone] 05/22/2022 Appointment Laboratory Medicine Angélica Granger P.A.-C. [address] [place] [phone] 06/05/2022 Appointment Laboratory Medicine Angélica Granger P.A.-C. [address] [place] [phone] 06/19/2022 Appointment Laboratory Medicine Angélica Granger P.A.-C. [address] [place] [phone] 07/03/2022 Appointment Laboratory Medicine Angélica Granger P.A.-C. [address] [place] [phone] 07/17/2022 Appointment Laboratory Medicine Angélica Granger P.A.-C. [address] [place] [phone] 07/31/2022 Appointment Laboratory Medicine Angélica Granger P.A.-C. [address] [place] [phone] 08/14/2022 Appointment Laboratory Medicine Angélica Granger P.A.-C. [address] [place] [phone] 08/28/2022 Appointment Laboratory Medicine Angélica Granger P.A.-C. [address] [place] [phone] documented as of this encounter Visit Diagnoses Diagnosis Pretransplant Recipient Evaluation Exam Chronic Kidney Disease Stage 4 Glomerula r Filtration Rate 15-29 (HCC) documented in this encounter Additional Health Concerns Assessment Noted Time PHQ-9 Depression Total Score: 5 03/02/2019 10:51 AM CD T documented as of this encounter Care Teams Hot Stick Worker Relationship Specialty Start Date End Date Elsewhere, Pcp PCP - General Family Medicine 07/29/17 documented as of this encounter
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
--- OUTSIDE RECORDS SUMMARY | 2022-04-13 12:31 | XMS_ITS | Encounter Summary ---
:1955 Author Organization [facility] Address [address] [place] [address] Care Team Providers Name Role Phone Elsewhere, Pcp Primary Care Provider Unavailable Encounter Details Date Type Department Care Team Description 04/14/2019 Clinical Communication Angélica Ching [place] for J, P.A.-C. 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 [address] [place] [phone] 04/25/2022 Office Visit Otorhinolaryngology Dex Matta APRN, C.N.P., M.S.N. [address] [place] [phone] 05/08/2022 Appointment Laboratory Medicine Angélica Granger P.A.-CDemetrius [address] [place] [phone] 05/08/2022 Clinical Admitting/Central Communication Scheduling 05/10/2022 Appointment Radiology Jeremie Rose M.D. [address] [place] [phone] 05/10/2022 Comprehensive Visit Orthopedic Surgery Warner Graves M.D. [address] [place] [phone] 05/22/2022 Appointment Laboratory Medicine Angélica Grnager P.A.-C. [address] [place] [phone] 06/05/2022 Appointment Laboratory Medicine Angélica Granger P.A.-C. [address] [place] [phone] 06/19/2022 Appointment Laboratory Medicine Angélica Granger P.A.-C. [address] [place] [phone] 07/03/2022 Appointment Laboratory Medicine Angélica Granger P.A.-C. [address] [place] [phone] 07/17/2022 Appointment Laboratory Medicine Angélica Granger P.A.-C. [address] [place] [phone] 07/31/2022 Appointment Laboratory Medicine Angélica Granger P.A.-C. [address] [place] [phone] 08/14/2022 Appointment Laboratory Angélica Royal P.A.-C. [address] [place] [phone] 08/28/2022 Appointment Laboratory Medicine Angélica Granger P.A.-C. [address] [place] [phone] documented as of this encounter Visit Diagnoses Diagnosis Transplant Liver (HCC) - Primary documented in this encounter Additional Health Concerns Assessment Noted Time PHQ-9 Depression Total Score: 5 03/02/2019 10:51 AM CD T documented as of this encounter Care Teams Radio Survey Worker Relationship Specialty Start Date End Date Elsewhere, Pcp PCP - General Family Medicine 07/29/17 documented as of this encounter
--- OUTSIDE RECORDS SUMMARY | 2022-04-13 12:31 | XMS_ITS | Encounter Summary ---
:1955 Author Organization [facility] Address [address] [place] [address] Care Team Providers Name Role Phone Elsewhere, Pcp Primary Care Provider Unavailable Encounter Details Date Type Department Care Team Description 03/02/2019 Hospital Encounter Department of Efrem Mohr Encounte r For Preprocedural Cardiovascular Examination ; Cardiovascular M.D. 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 Restarted on 10-4-17. Maintenance. traZODone (DESYREL) 100 Take 1 tablet by 0 201610/12/2020 mg tablet mouth at bedtime as needed for sleep. Maintenance documented as 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 [address] [place] [phone] 04/25/2022 Office Visit Otorhinolaryngology Dex Matta APRN, C.N.P., M.S.N. [address] [place] [phone] 05/08/2022 Appointment Laboratory Medicine Angélica Granger P.A.-C. [address] [place] [phone] 05/08/2022 Clinical Admitting/Central Communication Scheduling 05/10/2022 Appointment Radiology Jeremie Rose M.D. [address] [place] [phone] 05/10/2022 Comprehensive Visit Orthopedic Surgery Warner Graves M.D. [address] [place] [phone] 05/22/2022 Appointment Laboratory Medicine Angélica Granger P.A.-CDemetrius [address] [place] [phone] 06/05/2022 Appointment Laboratory Medicine Angélica Granger P.A.-CDemetrius [address] [place] [phone] 06/19/2022 Appointment Laboratory Medicine Angélica Granger P.A.-C. [address] [place] [phone] 07/03/2022 Appointment Laboratory Medicine Angélica Granger P.A.-C. [address] [place] [phone] 07/17/2022 Appointment Laboratory Medicine Angélica Granger P.A.-C. [address] [place] [phone] 07/31/2022 Appointment Laboratory Medicine Angélica Granger P.A.-C. [address] [place] [phone] 08/14/2022 Appointment Laboratory Medicine Angélica Granger P.A.-C. [address] [place] [phone] 08/28/2022 Appointment Laboratory Medicine Angélica Granger P.A.-C. [address] [place] [phone] documented as of this encounter Procedures Procedure Name Priority Date/Time Associated Diagnosis Comme nts ECHO STRESS 2D Routine 03/02/2019 9:05 AM Encounter For Result s for this WITH COLOR AND CDT Preprocedural procedure ar e in LIMITED DOPPLER Cardiovascular the result s Examination section. Pretransplant Recipient Evaluation Exam Chronic Kidney Disease Stage 4 Glomerular Filtration Rate 15-29 (HCC) documented in this encounter Results ECHO STRESS 2D WITH COLOR AND LIMITED DOPPLER (03/02/2019 9:05 AM CDT) [facility] Method Time Signature Ejection Fraction 62 MC CV EIMS Mid-Ascending Aorta 40 MC CV EIMS Wall Motion Score 1.00 MC CV EIMS Index LV Mass Index 111 MC CV EIMS LV End-Diastolic 52 MC CV EIMS Diameter LV End-Systolic 34 MC CV EIMS Diameter MV E Velocity 0.4 MC CV EIMS MV A Velocity 0.6 MC CV EIMS MV E/A 0.67 MC CV EIMS MV e' Velocity 0.06 MC CV EIMS Medial MV E/e' Medial 6.7 MC CV EIMS LV Interventricular 12 MC CV EIMS Septal Wall Thickness LV Posterior Wall 10 MC CV EIMS Thickness LV Relative Wall 38 MC CV EIMS Thickness TR Vmax 2.20 MC CV EIMS RA Pressure 5 MC CV EIMS RV Systolic Pressure 24 MC CV EIM S LA Volume Index 40 MC CV EIMS WMSI At Rest 1.00 MC CV EIMS WMSI At Peak Stress 1.00 MC CV EIMS Anatomical Region Laterality Modality Echocardiography Specimen (Source) Anatomical Collection Method Collection Time Re ceived Time Location / / Volume Laterality 03/02/2019 8:05 AM CDT Impressions 03/02/2019 9:39 AM CDT STRESS TEST: ??Dobutamine was infused from 5 mcg/kg/min to 40.0 mcg/kg/min. ??A dose of 1.5 mg of atropine was administered. ??A peak hear t rate of 136 BPM was achieved (87 % age-predicted maximal HR). ??The patient achieved a ma ximum heart rate of 136 BPM. ??The test was terminated due to target heart rate achievement. ?? The baseline ECG demonstrated sinus rhythm. ??With stress, there were no S-T changes. ??APC 's and VPC's present at stress. ??Nonsustained ventricular tachycardia with Dobutamine infusion. ??The stress ECG was negative for ischemia. LEFT VENTRICLE: ??Normal left ventricula r chamber size. ??Normal left ventricular wall thickness. Calculated left ventricular ejection fr action 62 %. ??No regional wall motion abnormalities. Grade 1/4 left ventricular diastolic dys function, consistent with low to normal left ventricular filling pressure. ??RIGHT VE NTRICLE: ??Normal right ventricular size. ??Normal right ventricular systolic function. ??Estimat ed right ventricular systolic pressure 24 mmHg (systolic blood pressure 150 mmHg). ??ATRIA: ??Mod erate left atrial enlargement. ??Left atrial volume index 40 ml/m^2. ??Normal right atrial size. ? ?CARDIAC VALVES: ??Trileaflet aortic valve. ??Thickened aortic valve. ??No aortic valve regurgit ation. ??Thickened mitral valve. ??Mild mitral valve regurgitation. ??Pulmonary valve not wel l visualized. ??Trivial pulmonary valve regurgitation. Normal tricuspid valve. ??Mild tricuspid valve regurgitation. ??OTHER ECHO FINDINGS: ??Normal ascending aorta dimension. ??No intracar diac mass or thrombus, but the left atrial appendage cannot be visualized adequately with tra nsthoracic echo to exclude thrombus in this location. No pericardial effusion. For the complete report, see the [employer] Documents below. See PDF For Result Narrative 03/02/2019 9:39 AM CDT For the complete report, see the [employer] Documents below. Final Impressions 1. Dobutamine stress echocardiogram nega tive for myocardial ischemia. 2. Ejection fraction response from 62 % at rest to 70 % at peak stress. 3. Left ventricular end-systolic volume decreased with stress. 4. No regional wall motion abnormalities with stress. 5. Nonsustained ventricular tachycardia with Dobutamine infusion (3-beat, multifocal). 6. Hypertensive response to stress (Dobu tamine). Procedure Note Chao Thapa M.D. - 03/02/2019Form atting of this note might be different from the original. For the complete report, see the [employer] Documents below. Final Impressions 1. Dobutamine stress echocardiogram nega tive for myocardial ischemia. 2. Ejection fraction response from 62 % at rest to 70 % at peak stress. 3. Left ventricular end-systolic volume decreased with stress. 4. No regional wall motion abnormalities with stress. 5. Nonsustained ventricular tachycardia with Dobutamine infusion (3-beat, multifocal). 6. Hypertensive response to stress (Dobu tamine). Findings STRESS TEST: Dobutamine was infused from 5 mcg/kg/min to 40.0 mcg/kg/min. A dose of 1.5 mg of atropine was administered. A peak heart rate of 136 BPM was achieved (87 % age-predicted maximal HR). The patient achieved a maxi mum heart rate of 136 BPM. The test was terminated due to target heart rate achievement. Th e baseline ECG demonstrated sinus rhythm. With stress, there were no S-T changes. APC's and VPC's present at stress. Nonsustained ventricular tachycardia with Dobutamine infusion. The stress ECG was negative for ischemia. LEFT VENTRICLE: Normal left ventricular chamber size. Normal left ventricular wall thickness. Calculated left ventricular ejection fr action 62 %. No regional wall motion abnormalities. Grade 1/4 left ventricular diastolic dys function, consistent with low to normal left ventricular filling pressure. RIGHT VENT RICLE: Normal right ventricular size. Normal right ventricular systolic function. Estimated right ventricular systolic pressure 24 mmHg (systolic blood pressure 150 mmHg). ATRIA: Moderat e left atrial enlargement. Left atrial volume index 40 ml/m^2. Normal right atrial size. CAR DIAC VALVES: Trileaflet aortic valve. Thickened aortic valve. No aortic valve regurgitat ion. Thickened mitral valve. Mild mitral valve regurgitation. Pulmonary valve not well visualized. Trivial pulmonary valve regurgitation. Normal tricuspid valve. Mild tricuspid v alve regurgitation. OTHER ECHO FINDINGS: Normal ascending aorta dimension. No intracardi ac mass or thrombus, but the left atrial appendage cannot be visualized adequately with tra nsthoracic echo to exclude thrombus in this location. No pericardial effusion. For the complete report, see the [employer] Documents below. See PDF For Result Efrem Mohr M.D. CV ECHO PROCEDURES documented in this encounter Visit Diagnoses Diagnosis Encounter For Preprocedural Cardiovascul ar Examination Pretransplant Recipient Evaluation Exam Chronic Kidney Disease Stage 4 Glomerula r Filtration Rate 15-29 (HCC) documented in this encounter Administered Medications Inactive Administered Medications - up to 3 most recent administrations Medication Order MAR Action Action Date Dose Rate Site atropine injection 1.5 mg Given 03/02/2019 8:30 AM CDT 1.5 mg 1.5 mg, intravenous, As needed, See protocol, Starting on Fri03/02/19 at 0833 DOBUTamine 1,000 mcg/mL in D5W 250 mL New Bag 03/02/2019 8:30 AM C DT 28 mg infusion 28 mg (DOBUTREX) 28 mg, intravenous, Once, On e 03/02/19 at 0915, For 1 dose, Infusion rate: 5-40 mcg/kg/min - see protocol. 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
--- OUTSIDE RECORDS SUMMARY | 2022-04-13 12:31 | XMS_ITS | Encounter Summary ---
:1955 Author Organization [facility] Address [address] [place] [address] Care Team Providers Name Role Phone Elsewhere, Pcp Primary Care Provider Unavailable Encounter Details Date Type Department Care Team Description 04/09/2019 Hospital Encounter Department of Angélica Granger ant Liver (HCC); Laboratory Medicine J PDemetriusADurgaC. 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 [address] [place] [phone] 04/25/2022 Office Visit Otorhinolaryngology Dex Matta APRN, C.N.P., M.S.N. [address] [place] [phone] 05/08/2022 Appointment Laboratory Medicine Angélica Granger P.A.-C. [address] [place] [phone] 05/08/2022 Clinical Admitting/Central Communication Scheduling 05/10/2022 Appointment Radiology Jeremie Rose M.D. [address] [place] [phone] 05/10/2022 Comprehensive Visit Orthopedic Surgery Warner Graves M.D. [address] [place] [phone] 05/22/2022 Appointment Laboratory Medicine Angélica Granger P.A.-C. [address] [place] [phone] 06/05/2022 Appointment Laboratory Medicine Angélica Granger P.A.-C. [address] [place] [phone] 06/19/2022 Appointment Laboratory Medicine Angélica Granger P.A.-C. [address] [place] [phone] 07/03/2022 Appointment Laboratory Medicine Angélica Granger P.A.-C. [address] [place] [phone] 07/17/2022 Appointment Laboratory Medicine Angélica Granger P.A.-C. [address] [place] [phone] 07/31/2022 Appointment Laboratory Medicine Angélica Granger P.A.-C. [address] [place] [address] [phone] 08/14/2022 Appointment Laboratory Medicine Angélica Granger P.A.-C. [address] [place] [address] [phone] 08/28/2022 Appointment Laboratory Medicine Angélica Granger P.A.-C. 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
--- OUTSIDE RECORDS SUMMARY | 2022-04-13 12:31 | XMS_ITS | Encounter Summary ---
:1955 Author Organization [facility] Address [address] [place] [id number] Care Team Providers Name Role Phone Elsewhere, Pcp Primary Care Provider Unavailable Reason for Visit Reason Comments Transplant Recipient Evaluation Appointment Request (Routine) - Closed Specialty Diagnoses / Procedures Referred By Contact Refer red To Contact Transplant Kidney Diagnoses [facility] [address] [place] [address] Phone: Referral ID Status Reason Start Date Expiration Date Visits Requ ested Visits Authorized [id number] Closed 02/10/2019 02/10/2020 1 1 Encounter Details Date Type Department Care Team Description 03/01/2019 Office Visit Curt Merrill, Efrem, Hypert ension And Chronic Kidney Disease Stage 1 To 4 (Primary Dx); [facility] Pretransplant Recipient Evaluation Exam; Transplantation and [address] [place] [address] Bipolar I Disorder (HCC); Clinical [facility] [place] [address] [place] [address] [place] [address] (Work) [phone] Social History Tobacco Use Types Packs/Day Years [...] 12/15/2021 organizations such as christian groups, unions, [employer] or athletic groups, or school groups? 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 - 03/01/2019 3:00 PM CDT CHIEF COMPLAINT and PURPOSE of VISIT Annual wait list re-evaluation. HISTORY OF PRESENT ILLNESS Mr. Singh is a pleasant 63 y.o. male is here for an annual wait list re- evaluation. His history isclearly outlined in the notes of Dr. Neo Bowman dated March 25 and March 27, 2018. 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 He received a liver transplant in 1998 and subsequently a 2nd liver transplant in 2012. 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 He is evaluated last urine was placed on the donor waiting list. He has not yet required initiation of dialysis. Over the past year he reports that overall he has been doing well. He has had no new complaints or concerns at this time. The following portions of the patient's history were reviewed and updated as appropriate: allergies,current medications, family history, medical history, social history, surgical history and problem list. Past Medical History: Diagnosis Date ??? Chronic [...] REPAIR N/A 09/03/2013 >Umbilical hernia repair. Social History Socioeconomic History ??? Marital status: Single Spouse name: None ??? Number of children: None ??? Years of education: None ??? Highest education level: Some college, no degree Occupational History ??? None Social Needs ??? Financial resource strain: Not hard at all ??? Food insecurity: Worry: Never true Inability: Never true ??? Transportation needs: Medical: No Non-medical: No Tobacco Use ??? Smoking status: Never Smoker ??? Smokeless tobacco: Never Used Substance and Sexual Activity ??? Alcohol use: No Frequency: Never Binge frequency: Never ??? Drug use: Defer ??? Sexual activity: Defer Lifestyle ??? Physical activity: Days per week: 2 days Minutes per session: 20 min ??? Stress: Only a little Relationships ??? Social connections: Talks on phone: More than three times a week Gets together: Twice a week Attends mosque service: More than 4 times per year Active member of club or organization: No Attends meetings of clubs or organizations: Patient refused Relationship status: Never ??? Intimate partner violence: Fear of current or ex partner: None Emotionally abused: None Physically abused: None Forced sexual activity: None Other Topics Concern ??? None Social History Narrative ??? None Family History Problem Relation Age of Onset ??? Coronary artery disease Mother ??? Heart attack Mother ??? Heart attack Father ??? Heart disease Father ??? Heart disease Mother Current Outpatient Medications: ??? acetaminophen (TYLENOL) 500 mg tablet, Take 1 tablet by mouth every 6 (six) hours as needed. Pain. No more than 2000 mg per day. , Disp: , Rfl: ??? amLODIPine (NORVASC) 10 mg tablet, TAKE 1 TABLET BY MOUTH DAILY, Disp: 100 tablet, Rfl: 3 ??? amoxicillin (AMOXIL) 500 mg capsule, Take 4 capsules by mouth as directed. Prior to dental procedures, Disp: , Rfl: 0 ??? aspirin (ASPIRIN CHILDRENS) 81 mg chewable tablet, Chew daily., Disp: , Rfl: ??? atorvastatin (LIPITOR) 10 mg tablet, Take 1 tablet (10 mg total) by mouth daily., Disp: 90 tablet, Rfl: 1 ??? CALCIUM-MAGNESIUM ORAL, Take 2 capsules by mouth 2 (two) times a day. 400mg calcium twice daily , Disp: , Rfl: ??? cholecalciferol (VITAMIN D3) 2,000 Unit tablet, Take 1 tablet by mouth daily., Disp: , Rfl: ??? coenzyme Q10 (CO Q-10) 200 mg capsule, Take 1 capsule by mouth daily. , Disp: , Rfl: ??? doxazosin (CARDURA) 8 mg tablet, TAKE 1 TABLET(8 MG) BY MOUTH DAILY AT NIGHT, Disp: 90 tablet, Rfl: 1 ??? fluticasone (FLONASE ALLERGY RELIEF) 50 mcg/actuation nasal spray, Administer 1 spray into affected nostril(s) daily as needed. One to two sprays per nostril daily for allergies; mostly for fall allergies , Disp: , Rfl: ??? lamoTRIgine (LaMICtal) [...] DAILY, Disp: 180 tablet, Rfl: 3 ??? predniSONE (DELTASONE) 5 mg tablet, TAKE 1 TABLET BY MOUTH DAILY, Disp: 90 tablet, Rfl: 3 ??? tacrolimus (PROGRAF) 0.5 mg capsule, TAKE 2 CAPSULES BY MOUTH EVERY 12 HOURS, Disp: 360 capsule,Rfl: 3 ??? torsemide (DEMADEX) 10 mg tablet, Take 3 tablets (30 mg total) by mouth daily. Restarted on 03-26-17. Maintenance., Disp: 270 tablet, Rfl: 1 ??? traZODone (DESYREL) 100 mg tablet, Take 1 tablet by mouth at bedtime as needed for sleep. Maintenance , Disp: , Rfl: ??? carvedilol (COREG) 3.125 mg tablet, Take 1 tablet (3.125 mg total) by mouth 2 (two) times a day with meals., Disp: 180 tablet, Rfl: 3 ??? glucosamine-chondroitin (GLUCOSAMINE-CHONDROITIN) 500-400 mg per capsule, Take 4 capsules by mouth daily., Disp: , Rfl: ??? ipratropium (ATROVENT) 42 mcg (0.06 %) nasal spray, Administer 2 sprays into affected nostril(s)4 (four) times a day as needed for rhinitis. Maintenance , Disp: , Rfl: REVIEW OF SYSTEMS Constitutional: Positive for fatigue. ENT: Positive for sinus congestion. Respiratory: Positive for coughing up mucus (phlegm) and dyspnea. Cardiovascular: Positive for swelling in the legs or feet. Genitourinary: Positive for frequent urination. Hematologic: Positive for bruises or bleeds easily. Musculoskeletal: Positive for arthralgias, back pain, pain or stiffness in the joints and joint swelling. Neurological: Positive for light-headedness. The following systems were negative: Skin, Eyes, GI, Psych PHYSICAL EXAM BP 113/71 Pulse 61 Ht 175.2 cm Wt 81.8 kg BMI 26.65 kg/m?? Constitutional: Oriented to person, place, and time. Appears well-developed and well-nourished. Head: Normocephalic and atraumatic. Mouth/Throat: Oropharynx is clear and moist. Eyes: Conjunctivae and EOM are normal. Pupils are equal, round, and reactive to light. Neck: Neck supple. Cardiovascular: Normal rate, regular rhythm and normal heart sounds. Exhibits no edema. Exam revealsno gallop and no friction rub. No murmur heard. Pulmonary/Chest: No respiratory distress. No wheezes, rales, or rhonchi . Chest wall exhibits no tenderness. Abdominal: Soft. Bowel sounds are normal. Exhibits no distension and no mass. There is no tenderness. There is no rebound and no guarding. Neurological: Alert and oriented to person, place, and time. Skin: Skin is warm and dry. No rash noted. No erythema. Psychiatric: Has a normal mood and affect. Behavior and judgment are normal. ASSESSMENT / PLAN #1 Pretransplant Recipient Evaluation Exam I think he can proceed with his annual wait list testing and I will visit with him later this week. #2 Hypertension And Chronic Kidney Disease Stage 1 To 4 He reports that he has worsening fatigue and he attributes this to the increased dose in Carvedilol.Given his lower normal blood pressure this time I have gone ahead and lower the dose to 3.125 mg twice a day. - carvedilol (COREG) 3.125 mg tablet; Take 1 tablet (3.125 mg total) by mouth 2 (two) times a day with meals., Starting Fri03/01/2019, Until Fri02/29/2020, Normal - Nephrology nurse visit (clinic); Future; Expected date: 03/01/2019 #3 Bipolar I Disorder (HCC) This has been quiescent and he is on medication. #4 Immunosuppressed State (HCC) Continues immunosuppression for his liver transplant. #5 CKD follow-up He follows with Dr. Priest in the continue the clinic. I see that he was last seen there January a year ago. I have gone ahead and requested that he visit with him again in follow-up. I have alsorequested that he follow up hypertension nurses to monitor his blood pressure as we lower the dose of the carvedilol. #6 Obstructive uropathy He continues on alpha blockade. 1. Renal diagnoses: Calcineurin inhibitor toxicity 2. Recurrence risk: Low 3. Consent form obtained: Yes previously and I updated him on the recent release of data from December of this year 4. Previous transplants (date, type): Liver transplant recipient in 1998 in 2012 5. Dialysis (date, type): Not yet on dialysis 6. Diabetes (PTx candidate?): Not diabetic 7. BMI: Body mass index is 26.65 kg/m??. 8. Functional status: Con Class a 9. Cardiopulmonary (cTNT, EF%, other): [] 10. History of malignancies: Not 11. Health maintenance: Up-to-date with colonoscopy in 2018 12. History of serious infections: No 13. Urinary bladder dysfunction: Some obstructive history but currently on alpha blockade and appears to be doing well 14. Hematology/coagulation: [] 15. Other medical: [] 16. Anti-HLA antibodies: [] 17. Surgical issues: [] 18. Peripheral Vascular Disease (PVD): No 19. Exhausted Vascular Access: No 20. Exhausted Peritoneal Dialysis Access: No 21. Psychosocial/financial concerns: [] 22. Pending issues: [] 23. Plans for immunosuppression: Per protocol 24. Preferred wait list follow-up for next year: Phone screen should be sufficient INFORMED CONSENT: Information regarding evaluation process and [...] electronically entered into the patient's medical record. Efrem Mohr M.D. documented in this encounter Plan of Treatment Upcoming Encounters Date Type Specialty Care Team Description 04/24/2022 Appointment Laboratory Medicine Angélica Granger P.A.-CDemetrius [address] [place] [phone] 04/25/2022 Office Visit Otorhinolaryngology Dex Matta, CMA, C.N.P., M.S.N. [address] [place] [phone] 05/08/2022 Appointment Laboratory Medicine Angélica Granger P.A.-CDemetrius [address] [place] [phone] 05/08/2022 Clinical Admitting/Central Communication Scheduling 05/10/2022 Appointment Radiology Jeremie Rose M.D. [address] [place] [phone] 05/10/2022 Comprehensive Visit Orthopedic Surgery Warner Graves M.D. [address] [place] [phone] 05/22/2022 Appointment Laboratory Medicine Angélica Granger P.A.-C. [address] [place] [phone] 06/05/2022 Appointment Laboratory Medicine Angélica Granger P.A.-C. [address] [place] [phone] 06/19/2022 Appointment Laboratory Medicine Angélica Granger P.A.-C. [address] [place] [phone] 07/03/2022 Appointment Laboratory Medicine Angélica Granger P.A.-C. [address] [place] [phone] 07/17/2022 Appointment Laboratory Medicine Angélica Granger P.A.-C. [address] [place] [phone] 07/31/2022 Appointment Laboratory Medicine Angélica Granger P.A.-C. [address] [place] [phone] 08/14/2022 Appointment Laboratory Angélica Royal P.A.-C. [address] [place] [phone] 08/28/2022 Appointment Laboratory Medicine Angélica Granger P.A.-C. 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
--- OUTSIDE RECORDS SUMMARY | 2022-04-13 12:31 | XMS_ITS | Encounter Summary ---
:1955 Author Organization [facility] Address [address] [place] [address] Care Team Providers Name Role Phone Elsewhere, Pcp Primary Care Provider Unavailable Reason for Referral Outpatient (Routine) - Closed Specialty Diagnoses / Procedures Referred By Contact Refer red To Contact [facility] Sada Hobson [address] [place] [address] Referral ID Status Reason Start Date Expiration Date Visits Requ ested Visits Authorized [id number] Closed 03/01/2019 02/29/2020 1 1 Reason for Visit Reason Onset Date Comments Appointment 03/01/2019 Encounter Details Date Type Department Care Team Description 03/01/2019 Clinical Communication Division of Nephrology Reba Greene Appointment and Hypertension in [place], [place] [address] [place] [address] [place] [phone] Social History Tobacco Use Types Packs/Day Years [...] 12/15/2021 organizations such as mandaeism groups, unions, [employer] or athletic groups, or school groups? How [...] at Date Recorded Male 05/16/2020 4:27 PM [employer]LE [employer]AR[employer]ISH[employer] documented as of this encounter Miscellaneous Notes Telephone Encounter - Reba Greene - 03/01/2019 11:40 AM CDT Your note from January 2018 states to have patient come back in 6 months. This wasn't ordered, so hence, it wasn't scheduled. Patient saw Dr. Mohr and Dr. Mohr would now like you to place orders and patient to be seen by you in the near future. documented in this encounter Plan of Treatment Upcoming Encounters Date Type Specialty Care Team Description 04/24/2022 Appointment Laboratory Medicine Angélica Granger P.A.-C. [address] [place] [phone] 04/25/2022 Office Visit Otorhinolaryngology GoschDex APRN, C.N.P., M.S.N. [address] [place] [phone] 05/08/2022 Appointment Laboratory Medicine Angélica Granger P.A.-C. [address] [place] [phone] 05/08/2022 Clinical Admitting/Central Communication Scheduling 05/10/2022 Appointment Radiology Jeremie Rose M.D. [address] [place] [phone] 05/10/2022 Comprehensive Visit Orthopedic Surgery Warner Graves M.D. [address] [place] [phone] 05/22/2022 Appointment Laboratory Medicine Angélica Granger P.A.-C. [address] [place] [phone] 06/05/2022 Appointment Laboratory Medicine Angélica Granger P.A.-C. [address] [place] [phone] 06/19/2022 Appointment Laboratory Medicine Angélica Granger P.A.-C. [address] [place] [phone] 07/03/2022 Appointment Laboratory Medicine Angélica Granger P.A.-C. [address] [place] [phone] 07/17/2022 Appointment Laboratory Medicine Angélica Granger P.A.-C. [address] [place] [phone] 07/31/2022 Appointment Laboratory Medicine Angélica Granger P.A.-C. [address] [place] [phone] 08/14/2022 Appointment Laboratory Medicine Angélica Granger P.A.-C. [address] [place] [phone] 08/28/2022 Appointment Laboratory Medicine Angélica Granger P.A.-C. [address] [place] [phone] Scheduled Referrals Name Type Priority Associated Order Schedule Diagnoses Nephrology and Outpatient Referral Routine Expect ed: Hypertension office 05/01/20 visit (clinic) (Approximate) , Expires: 03/01/2022 documented as of this encounter Results (ABNORMAL) Uric Acid (05/11/2019 9:20 AM [employer]) athologist Signature Uric Acid, S 9.9 (H) 3.7 - 8.0 05/11/2019 AUST mg/dL 4:22 PM [employer] Specimen Anatomical Collection Method Collection Time Receive d Time (Source) Location / / Volume Laterality Blood (Blood, 05/11/2019 9:20 AM 05/11/20 4:01 Venous) [employer] PM [employer] Joce Bailey M.D. LAB BLOOD ADD-ON Performing Organization Address City/State/ZIP Code Phon e Number [facility]- [address] [place] [address] [facility] [place] [address] [facility] [address] 25-Hydroxyvitamin D2 and D3 (05/11/2019 9:20 AM [employer]ER) athologist Signature 25-Hydroxy D2 <4.0 ng/mL 05/14/2019 SDSC 11:05 AM [employer]ER 25-Hydroxy D3 69 ng/mL 05/14/2019 SDSC 11:05 AM [employer]ER 25-Hydroxy D 69 ng/mL 05/14/2019 SDSC Total 11:05 AM [employer]ISHER Comment: Interpretation: 51-80 ng/mL (increased r isk of hypercalciuria) ----REFERENCE VALUE---- 25-HYDROXY D TOTAL (D2+D3) Optimum level s in the healthy population are 20-50, patients with bone disease may benefit from higher levels within this r itzel. ----ADDITIONAL INFORMATION---- This test was developed and its performa nce characteristics determined by [facility] in a manner consistent with CLIA requirements. This test has not been cleared or approved by the U.S. Mer d and Drug Administration. Specimen Anatomical Collection Method Collection Time Receive d Time (Source) Location / / Volume Laterality Blood (Blood, 05/11/2019 9:20 AM 05/12/20 7:57 Venous) [employer]ER AM [employer]ER Joce Bailey M.D. LAB BLOOD ADD-ON Performing Organization Address City/State/[facility] Code Phon e Number [facility] [address] MURILLO [address] [place] [address] Laboratory Medicine and Pathology [address] [place] [address] Dr. MURILLO (ABNORMAL) Parathyroid Hormone (PTH) (05/11/2019 9:20 AM [employer]ISHER) P athologist Signature Parathyroid 98 (H) 15 - 65 05/11/2019 AUST Hormone (PTH), S pg/mL 4:31 PM [employer]ISHER Comment: Biotin has been identified by the [facility] as a potential interfering substance. ??Higher concentr ations of biotin may be found in multivitamins, hair/nail supple ments, and workout supplements. ??If the result does not [facility] clinical observations, repeat testing after patient refrains fr om the use of supplements for at least 12 hours. Specimen Anatomical Collection Method Collection Time Receive d Time (Source) Location / / Volume Laterality Blood (Blood, 05/11/2019 9:20 AM 05/11/20 4:01 Venous) [employer]ER PM [employer]ER Joce Bailey M.D. LAB BLOOD ADD-ON Performing Organization Address City/State/ZIP Code Phon e Number [facility]- [address] [place] [address] [facility] [place], [place] [id number] [place] [address] Ferritin (05/11/2019 9:20 AM [employer]ISHER) athologist Signature Ferritin, S 162 mcg/L 05/11/2019 2:08 OWAT PM [employer]ISHER Comment: Biotin has been identified by the [facility] as a potential interfering substance. ??Higher concentr ations of biotin may be found in multivitamins, hair/nail supple ments, and workout supplements. ??If the result does not [facility] clinical observations, repeat testing after patient refrains fr om the use of supplements for at least 12 hours. ----REFERENCE VALUE---- Reference values have not been established for patients who are greater than 60 years of age Specimen Anatomical Collection Method Collection Time Receive d Time (Source) Location / / Volume Laterality Blood (Blood, 05/11/2019 9:20 AM 05/11/20 1:34 Venous) [employer]ER PM [employer]ER Joce Bailey M.D. LAB BLOOD ADD-ON Performing Organization Address City/State/ZIP Code Phon e Number [facility]- [address] [place] [address] [facility] [place] [address] System in [place] [address] (ABNORMAL) Iron and Total Iron-Binding Capacity (05/11/2019 9:20 AM [employer]ER) athologist Signature Iron 94 50 - 150 05/11/2019 AUST mcg/dL 5:00 PM [employer] Total Iron 240 (L) 250 - 400 05/11/2019 AUST Binding mcg/dL 5:00 PM [employer]ER Capacity Percent 39 14 - 50 % 05/11/2019 AUST Saturation 5:00 PM [employer]ER Specimen Anatomical Collection Method Collection Time Receive d Time (Source) Location / / Volume Laterality Blood (Blood, 05/11/2019 9:20 AM 05/11/20 4:01 Venous) [employer]ER PM [employer]ER Joce Bailey M.D. LAB BLOOD ADD-ON Performing Organization Address City/State/ZIP Code Phon e Number [facility]- [address] [place] [address] [facility] [place], [place] [address] [place] [address] (ABNORMAL) CBC with Differential (05/11/2019 9:20 AM [employer]ISHER) [facility] gist Method Time Signature Hemoglobin 10.9 (L) 13.2 - 05/11/2019 FB60 16.6 g/dL 10:48 AM [employer]ISHER Hematocrit 33.0 (L) 38.3 - 05/11/2019 FB60 48.6 % 10:48 AM [employer]ER Erythrocytes 3.53 (L) 4.35 - 05/11/2019 FB60 5.65 10:48 AM [employer]ISHER x10(12)/L MCV 93.5 78.2 - 05/11/2019 FB60 97.9 fL 10:48 AM [employer]ER RBC Distrib Width 12.7 11.8 - 05/11/2019 FB60 14.5 % 10:48 AM [employer]ISHER Platelet Count 204 135 - 317 05/11/2019 FB60 x10(9)/L 10:48 AM [employer]ER Leukocytes 3.2 (L) 3.4 - 9.6 05/11/2019 FB60 x10(9)/L 10:48 AM [employer]ER Neutrophils 1.45 (L) 1.56 - 05/11/2019 FB60 6.45 10:48 AM AX[employer]ISHER x10(9)/L Lymphocytes 1.15 0.95 - 05/11/2019 FB60 3.07 10:48 AM [employer]ISHER x10(9)/L Monocytes 0.53 0.26 - 05/11/2019 FB60 0.81 10:48 AM [employer]ING [employer]ISHER x10(9)/L Eosinophils 0.06 0.03 - 05/11/2019 FB60 0.48 10:48 AM [employer]ING [employer]ISHER x10(9)/L Basophils 0.01 0.01 - 05/11/2019 FB60 0.08 10:48 AM AXLE [employer]ARING [employer]ISHER x10(9)/L Specimen Anatomical Collection Method Collection Time Receive d Time (Source) Location / / Volume Laterality Blood (Blood, 05/11/2019 9:20 AM 05/11/20 9:24 Venous) [employer]ISHER AM AX[employer]ING [employer]ISHER Joce Bailey M.D. LAB BLOOD ADD-ON Performing Organization Address City/State/ZIP Code Phon e Number [facility]- [address] [place] [address] [facility] [address] [place] [address] System in [place] [address] (ABNORMAL) Lipid Panel (05/11/2019 9:20 AM AXLE [employer]ING POLISHER) athologist Signature Cholesterol, 131 mg/dL 05/11/2019 OWAT Total 2:34 PM AXLE [employer]ING [employer]ISHER Comment: ----REFERENCE VALUE---- Desirable: < 200 Borderline high: 200 - 239 High: > or = 240 Triglycerides 171 (H) mg/dL 05/11/2019 2:34 PM AXLE BEARING POLISHER O[place] T Comment: ----REFERENCE VALUE---- Normal: <150 Borderline high: 150-199 High: 200-499 Very high: > or =500 Cholesterol, HDL, S 33 (L) >=40 mg/dL 05/11/2019 2:34 PM AXLE BEARING [employer]ISHER OWAT Calculated LDL 64 mg/dL 05/11/2019 2:34 PM AXLE BEARING POLISHER OW AT Comment: ----REFERENCE VALUE---- Desirable: <100 Above Desirable: 100-129 Borderline high: 130-159 High: 160-189 Very high: > or =190 Cholesterol, Non-HDL, Calculated 98 mg/dL 019 2:34 PM AXLE BEARING POLISHER OWAT Comment: ----REFERENCE VALUE---- Desirable: <130 Above Desirable: 130-159 Borderline high: 160-189 High: 190-219 Very high: > or =220 Specimen Anatomical Collection Method Collection Time Receive d Time (Source) Location / / Volume Laterality Blood (Blood, 05/11/2019 9:20 AM 05/11/20 1:34 Venous) [employer]ISHER PM AX[employer]ING [employer]ISHER Joce Bailey M.D. LAB BLOOD ADD-ON Performing Organization Address City/State/ZIP Code Phon e Number [facility]- [address] [place] [address] [place] [address] System in [place] [address] (ABNORMAL) Cystatin C with Estimated GFR, S (05/11/2019 9:20 AM AXLE BEARING POLISHER) athologist Signature eGFR by 16 >60 05/12/2019 DAVE Cystatin C mL/min/BSA 7:49 AM AXLE [employer]ARING [employer]ISHER Comment: ----ADDITIONAL INFORMATION---- Cystatin C-based eGFR may differ substan tially from creatinine-based eGFR in patients with a bnormal muscle mass or acutely changing renal function. ??Pl ease interpret together with relevant clinical features. Cystatin C, S 3.18 (H) 0.77 - 1.42 mg/L 05/12/2019 7:49 AM AXLE BEARING POLISHER DAVE Specimen Anatomical Collection Method Collection Time Receive d Time (Source) Location / / Volume Laterality Blood (Blood, 05/11/2019 9:20 AM 05/12/20 6:53 Venous) [employer]ING [employer]ISHER AM AX[employer]ING [employer]ISHER Joce Bailey M.D. LAB BLOOD ADD-ON Performing Organization Address City/State/ZIP Code Phon e Number [facility] - [address] [place], [place] [address] [facility] [place] [address] [facility] [address] (ABNORMAL) Renal Function Panel (05/11/2019 9:20 AM AXLE BEARING POLISHER) Analysis Performed At Patho logist Time Signature Potassium, S 3.4 (L) 3.6 - 5.2 05/11/2019 OWAT mmol/L 2:34 PM [employer]ING [employer]ISHER Sodium, S 139 135 - 145 05/11/2019 OWAT mmol/L 2:34 PM [employer]ISHER Chloride, S 98 98 - 107 05/11/2019 OWAT mmol/L 2:34 PM [employer]ISHER Bicarbonate, S 24 22 - 29 05/11/2019 OWAT mmol/L 2:34 PM [employer]ISHER Anion Gap 17 (H) 7 - 15 05/11/2019 OWAT 2:34 PM AXLE BEARING POLISHER BUN (Blood Urea 51 (H) 8 - 24 05/11/2019 OWAT Nitrogen), S mg/dL 2:34 PM AX[employer]ING [employer]ISHER Creatinine 3.01 (H) 0.74 - 05/11/2019 OWAT 1.35 mg/dL 2:34 PM AX[employer]ING [employer]ISHER eGFR-Non 21 (L) >=60 05/11/2019 OWAT Black/ mL/min/BSA 2:34 PM AXLE BEARING POLISHER [place] Comment: ----ADDITIONAL INFORMATION---- Estimated GFR calculated using the 2009 CKD_EPI creatinine equation. eGFR-Black/ 24 (L) >=60 mL/min/BSA 2018 2:34 PM AXLE BEARING POLISHER OWAT Comment: ----ADDITIONAL INFORMATION---- Estimated GFR calculated using the 2009 CKD_EPI creatinine equation. Calcium, Total, S 9.2 8.8 - 10.2 mg/dL 05/11/2019 2:34 PM AXLE BEARING [employer]ISHER OWAT Glucose, S 119 70 - 140 mg/dL 05/11/2019 2:34 PM AXLE BEARING POLISHER O YAO Albumin, S 4.2 3.5 - 5.0 g/dL 05/11/2019 2:34 PM AXLE BEARING POLISHER O YAO Phosphorus (Inorganic), S 3.4 2.5 - 4.5 mg/dL 05/11/20 4:22 PM AXLE BEARING POLISHER AUST Specimen Anatomical Collection Method Collection Time Receive d Time (Source) Location / / Volume Laterality Blood (Blood, 05/11/2019 9:20 AM 05/11/20 1:34 Venous) [employer]ING [employer]ISHER PM AXLE BEARING POLISHER Narrative [facility] - 05/11/2019 4:22 PM AXLE [employer]ING [employer]ISHER Specimen Information: Specimen ID: [id number] Specimen Type: Blood Specimen Collection Start Date: 019 ??9:20 AM Specimen Received Date: 05/11/2019 ??1: 34 PM Specimen ID: [id number] Specimen Type: Blood Specimen Collection Start Date: 019 ??9:20 AM Specimen Received Date: 05/11/2019 ??4: 01 PM Joce Bailey M.D. LAB BLOOD ADD-ON Performing Organization Address City/State/ZIP Code Phon e Number [facility]- [address] [place], [place] [address] [place] [address] [place] [address] System in [place] [address] [facility] [place] [address] [facility] [address] (ABNORMAL) Microalbumin, Random, Urine (05/11/2019 9:10 AM AXLE BEARING POLISHER) [facility] gist Method Time Signature Microalbumin 193.0 mg/L 05/11/2019 OWAT 2:39 PM AXLE [employer]ARING [employer]ISHER Creatinine 142 mg/dL 05/11/2019 OWAT 2:39 PM AXLE BEARING POLISHER Albumin/Creatinin 136 (H) <17 mg/g 05/11/2019 OWAT e Ratio 2:39 PM AXLE BEARING POLISHER Specimen Anatomical Collection Method Collection Time Receive d Time (Source) Location / / Volume Laterality Urine (Urine, 05/11/2019 9:10 AM 05/11/20 1:35 Voided) [employer]ING [employer]ISHER PM AX[employer]ING [employer]ISHER Joce Bailey M.D. LAB URINE ORDERABLES Performing Organization Address City/State/ZIP Code Phon e Number [facility]- [address] [facility] [address] [facility] [place] [facility] [place] [address] System in [place] [address] [facility] (ABNORMAL) Urinalysis with Microscopic: Urine, Voided (05/11/2019 9:10 AM AXLE BEARING POLISHER) P athologist Signature Source Midstream 05/11/2019 FB60 11:07 AM AX[employer]ING POLISHER Clarity Clear Clear 05/11/2019 FB60 11:08 AM AX[employer]ING POLISHER Color Yellow 05/11/2019 FB60 11:08 AM AXLE BEARING POLISHER Comment: ----REFERENCE VALUE---- Colorless Yellow Bhakti Blood Moderate (A) Negative 05/11/2019 11:08 AM AXLE BEARING POLISHER FB6 0 Nitrite Negative Negative 05/11/2019 11:08 AM AXLE BEARING POLISHER FB60 Leukocyte Esterase Negative Negative 05/11/2019 11:[address] FB60 Protein 30 (A) mg/dL 05/11/2019 11:08 AM AXLE BEARING POLISHER FB60 Comment: ----REFERENCE VALUE---- Negative Trace Glucose Negative Negative mg/dL 05/11/2019 11:08 AM AXLE BEARING POLISHER F B60 Ketones, QI(U) Negative Negative mg/dL 05/11/2019 11:08 AM AXLE BEARING POLISHER FB60 Bilirubin Negative Negative 05/11/2019 11:08 AM AXLE BEARING POLISHER FB60 pH 6.0 5.0 - 8.0 05/11/2019 11:08 AM AXLE BEARING POLISHER FB60 Specific [place] 1.010 1.001 - 1.035 05/11/2019 11:08 AM AXLE BEARING POLISHER FB60 Urobilinogen 0.2 0.2 - 1.0 mg/dL 05/11/2019 11:[address] FB60 White Blood Cells None Seen /hpf 05/11/2019 11:08 AM CS T FB60 Comment: ----REFERENCE VALUE---- Males: 0-3 Females: 0-10 Unknown: 0-10 Red Blood Cells 3-10 (A) 0 - 2 /hpf 05/11/2019 11:08 AM AXLE BEARING POLISHER FB60 Dysmorphic Red Blood Cells <=25 <=25 % 05/11/2019 11 :08 AM AXLE BEARING POLISHER FB60 Squamous Cells Occ-3 /hpf 05/11/2019 11:08 AM AXLE BEARING POLISHER F B60 Specimen Anatomical Collection Method Collection Time Receive d Time (Source) Location / / Volume Laterality Urine (Urine, 05/11/2019 9:10 AM 05/11/20 19 9:31 Voided) AX[employer]ING POLISHER AM AXLE [employer]ING POLISHER Joce Bailey M.D. LAB URINE ORDERABLES Performing Organization Address City/State/ZIP Code Phon e Number [facility]- [address] [place] [address] [facility] [address] [place] [address] System in [place] [address] documented in this encounter Visit Diagnoses Diagnosis Hypertension And Chronic Kidney Disease Stage 4 (HCC) - Primary Hypertension And Chronic Kidney Disease Stage 4 (HCC) Transplant Liver (HCC) Medication Therapy Custodial Not Anticoa gulant documented in this encounter Additional Health Concerns Assessment Noted Time PHQ-9 Depression Total Score: 2 08/25/2018 9:45 AM AX[employer]ARING POLISHER documented as of this encounter Care Teams Fur Feeder Relationship Specialty Start Date End Date Elsewhere, Pcp PCP - General Family Medicine 07/29/17 documented as of this encounter
--- OUTSIDE RECORDS SUMMARY | 2022-04-13 12:31 | XMS_ITS | Encounter Summary ---
:1955 Author Organization [facility] Address [address] [place] [address] Care Team Providers Name Role Phone Elsewhere, Pcp Primary Care Provider Unavailable Encounter Details Date Type Department Care Team Description 03/24/2019 Orders Only Blanca Luis ansplant Liver (HCC) (Primary Dx); Center for M, R.N. Medication Therapy Forge Tender Not Anticoa gulant Transplantation and [phone] Clinical Regeneration in (Work) [place], [place] [address] [place] [phone] Social History Tobacco Use Types Packs/Day [...] at Date Recorded Male 05/16/2020 4:27 PM ER MEDICAL TECHNICIAN documented as of this encounter Plan of Treatment Upcoming Encounters Date Type Specialty Care Team Description 04/24/2022 Appointment Laboratory Medicine Angélica Granger P.A.-CDemetrius [address] [place] [phone] 04/25/2022 Office Visit Otorhinolaryngology Dex Matta APRN, C.N.P., M.S.N. [address] [place] [phone] 05/08/2022 Appointment Laboratory Medicine Angélica Granger P.A.-CDemetrius [address] [place] [phone] 05/08/2022 Clinical Admitting/Central Communication Scheduling 05/10/2022 Appointment Radiology Jeremie Rose M.D. [address] [place] [phone] 05/10/2022 Comprehensive Visit Orthopedic Surgery Warner Graves M.D. [address] [place] [phone] 05/22/2022 Appointment Laboratory Medicine Angélica Granger P.A.-CDemetrius [address] [place] [phone] 06/05/2022 Appointment Laboratory Medicine Angélica Granger P.A.-C. [address] [place] [phone] 06/19/2022 Appointment Laboratory Medicine Angélica Granger P.A.-C. [address] [place] [phone] 07/03/2022 Appointment Laboratory Medicine Angélica Granger P.A.-C. [address] [place] [phone] 07/17/2022 Appointment Laboratory Medicine Angélica Granger P.A.-C. [address] [place] [address] [phone] 07/31/2022 Appointment Laboratory Medicine Angélica Granger P.A.-C. [address] [place] [address] [phone] 08/14/2022 Appointment Laboratory Medicine Angélica Granger P.A.-C. [address] [place] [phone] 08/28/2022 Appointment Laboratory Medicine Angélica Granger P.A.-C. [address] [place] [address] [phone] documented as of this encounter Results (ABNORMAL) Comprehensive Metabolic Panel (05/11/2019 9:20 AM ER MEDICAL TECHNICIAN) Analysis Performed At [facility] Time Signature Potassium, S 3.4 (L) 3.6 - 5.2 05/11/2019 [place] mmol/L 2:34 PM ER MEDICAL TECHNICIAN Sodium, S 139 135 - 145 05/11/2019 [place] mmol/L 2:34 PM ER MEDICAL TECHNICIAN Chloride, S 98 98 - 107 05/11/2019 [place] mmol/L 2:34 PM ER MEDICAL TECHNICIAN Bicarbonate, S 24 22 - 29 05/11/2019 [place] mmol/L 2:34 PM ER MEDICAL TECHNICIAN Anion Gap 17 (H) 7 - 15 05/11/2019 [place] 2:34 PM ER MEDICAL TECHNICIAN BUN (Blood Urea 51 (H) 8 - 24 05/11/2019 [place] Nitrogen), S mg/dL 2:34 PM ER MEDICAL TECHNICIAN Creatinine 3.01 (H) 0.74 - 05/11/2019 [place] 1.35 mg/dL 2:34 PM ER MEDICAL TECHNICIAN eGFR-Non 21 (L) >=60 05/11/2019 [place] Black/ mL/min/BSA 2:34 PM ER MEDICAL TECHNICIAN Albanian Comment: ----ADDITIONAL INFORMATION---- Estimated GFR calculated using the 2009 CKD_EPI creatinine equation. eGFR-Black/ 24 (L) >=60 mL/min/BSA 2018 2:34 PM ER MEDICAL TECHNICIAN [place] Comment: ----ADDITIONAL INFORMATION---- Estimated GFR calculated using the 2009 CKD_EPI creatinine equation. Calcium, Total, S 9.2 8.8 - 10.2 mg/dL 05/11/2019 2:34 PM ER MEDICAL TECHNICIAN [place] Glucose, S 119 70 - 140 mg/dL 05/11/2019 2:34 PM ER MEDICAL TECHNICIAN O YAO Protein, Total, S 6.5 6.3 - 7.9 g/dL 05/11/2019 2:34 P M ER MEDICAL TECHNICIAN [place] Albumin, S 4.2 3.5 - 5.0 g/dL 05/11/2019 2:34 PM ER MEDICAL TECHNICIAN O YAO Aspartate Aminotransferase 24 8 - 48 U/L 05/11/2019 2 :34 PM ER MEDICAL TECHNICIAN [place] (AST), S Alkaline Phosphatase, S 84 40 - 129 U/L 05/11/2019 2: 34 PM ER MEDICAL TECHNICIAN [place] Alanine Aminotransferase (ALT), 22 7 - 55 U/L 019 2:34 PM ER MEDICAL TECHNICIAN [place] S Bilirubin, Total, S 0.5 <=1.2 mg/dL 05/11/2019 2:34 PM ER MEDICAL TECHNICIAN [place] Specimen Anatomical Collection Method Collection Time Receive d Time (Source) Location / / Volume Laterality Blood (Blood, 05/11/2019 9:20 AM 11/19/20 19 1:34 Venous) ER MEDICAL TECHNICIAN PM ER MEDICAL TECHNICIAN Willis Mcdermott M.D. LAB BLOOD ADD-ON Performing Organization Address City/State/ZIP Code Phon e Number [facility]- [address] [place] [address] [facility] [place] [address] System in [place] [address] (ABNORMAL) Tacrolimus, B (05/11/2019 9:20 AM ER MEDICAL TECHNICIAN) P athologist Signature Tacrolimus, B 2.4 (L) 5.0-15.0 05/12/2019 [facility] (Trough) 1:04 PM ER MEDICAL TECHNICIAN ng/mL Comment: ----ADDITIONAL INFORMATION---- Target steady-state [...] performa nce characteristics determined by [facility] in a manner consistent with CLIA requirements. This test has not been cleared or approved by the U.S. Mer d and Drug Administration. Specimen Anatomical Collection Method Collection Time Receive d Time (Source) Location / / Volume Laterality Blood (Blood, 05/11/2019 9:20 AM 05/12/20 19 7:37 Venous) ER MEDICAL TECHNICIAN AM ER MEDICAL TECHNICIAN Willis Mcdermott M.D. LAB BLOOD NON ADD-ON Performing Organization Address City/State/ZIP Code Phon e Number [facility] [address] [place], [place] [address] [facility] [place] [address] Laboratory Medicine and Pathology [address] [place] documented in this encounter Visit Diagnoses Diagnosis Transplant Liver (HCC) - Primary Medication Therapy Senior Care Not Anticoa gulant documented in this encounter Additional Health Concerns Assessment Noted Time PHQ-9 Depression Total Score: 5 03/02/2019 10:51 AM CD T documented as of this encounter Care Teams Tie Knitter Helper Relationship Specialty Start Date End Date Elsewhere, Pcp PCP - General Family Medicine 07/29/17 documented as of this encounter
--- OUTSIDE RECORDS SUMMARY | 2022-04-13 12:31 | XMS_ITS | Encounter Summary ---
:1955 Author Organization [facility] Address [address] [place] [address] Care Team Providers Name Role Phone Elsewhere, Pcp Primary Care Provider Unavailable Encounter Details Date Type Department Care Team Description 04/09/2019 Hospital Encounter Department of Angélica Granger ant Liver (HCC); Laboratory Medicine J PDemetriusADurgaC. 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 [address] [place] [phone] 04/25/2022 Office Visit Otorhinolaryngology Dex Matta APRN, C.N.P., M.S.N. [address] [place] [phone] 05/08/2022 Appointment Laboratory Medicine Angélica Granger P.A.-C. [address] [place] [phone] 05/08/2022 Clinical Admitting/Central Communication Scheduling 05/10/2022 Appointment Radiology Jeremie Rose M.D. [address] [place] [phone] 05/10/2022 Comprehensive Visit Orthopedic Surgery Warner Graves M.D. [address] [place] [phone] 05/22/2022 Appointment Laboratory Medicine Angélica Granger P.A.-C. [address] [place] [phone] 06/05/2022 Appointment Laboratory Medicine Angélica Granger P.A.-C. [address] [place] [phone] 06/19/2022 Appointment Laboratory Medicine Angélica Granger P.A.-C. [address] [place] [phone] 07/03/2022 Appointment Laboratory Medicine Angélica Granger P.A.-C. [address] [place] [phone] 07/17/2022 Appointment Laboratory Medicine Angélica Granger P.A.-C. [address] [place] [phone] 07/31/2022 Appointment Laboratory Medicine Angélica Granger P.A.-C. [address] [place] [address] [phone] 08/14/2022 Appointment Laboratory Medicine Angélica Granger P.A.-C. [address] [place] [address] [phone] 08/28/2022 Appointment Laboratory Medicine Angélica Granger P.A.-C. [address] [place] [address] [phone] documented as of this encounter Visit Diagnoses Diagnosis Transplant Liver (HCC) Medication Therapy Medical Imaging Technician Not Anticoa gulant documented in this encounter Additional Health Concerns Assessment Noted Time PHQ-9 Depression Total Score: 5 03/02/2019 10:51 AM CD T documented as of this encounter Care Teams Senior Corporate Strategy Manager Relationship Specialty Start Date End Date Elsewhere, Pcp PCP - General Family Medicine 07/29/17 documented as of this encounter
--- OUTSIDE RECORDS SUMMARY | 2022-04-13 12:31 | XMS_ITS | Encounter Summary ---
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 [address] [place] [phone] 04/25/2022 Office Visit Otorhinolaryngology Dex Matta APRN, C.N.P., M.S.N. [address] [place] [address] [phone] 05/08/2022 Appointment Laboratory Medicine Angélica Granger P.A.-CDemetrius [address] [place] [phone] 05/08/2022 Clinical Admitting/Central Communication Scheduling 05/10/2022 Appointment Radiology Jeremie Rose M.D. [address] [place] [phone] 05/10/2022 Comprehensive Visit Orthopedic Surgery Warner Graves M.D. [address] [place] [phone] 05/22/2022 Appointment Laboratory Medicine Angélica Granger P.A.-CDemetrius [address] [place] [phone] 06/05/2022 Appointment Laboratory Medicine Angélica Granger P.A.-C. [address] [place] [phone] 06/19/2022 Appointment Laboratory Angélica Royal P.A.-C. [address] [place] [phone] 07/03/2022 Appointment Laboratory Medicine Angélica Granger P.A.-C. [address] [place] [phone] 07/17/2022 Appointment Laboratory Medicine Angélica Granger P.A.-C. [address] [place] [phone] 07/31/2022 Appointment Laboratory Medicine Angélica Granger P.A.-C. [address] [place] [phone] 08/14/2022 Appointment Laboratory Angélica Royal P.A.-C. [address] [place] [phone] 08/28/2022 Appointment Laboratory Angélica Royal P.A.-C. [address] [place] [phone] documented as of this encounter Visit Diagnoses Not on filedocumented in this encounter Additional Health Concerns Assessment Noted Time PHQ-9 Depression Total Score: 5 03/02/2019 10:51 AM CD T documented as of this encounter Care Teams Registered Pharmacist Relationship Specialty Start Date End Date Elsewhere, Pcp PCP - General Family Medicine 07/29/17 documented as of this encounter
--- OUTSIDE RECORDS SUMMARY | 2022-04-13 12:31 | XMS_ITS | Encounter Summary ---
:1955 Author Organization [facility] Address [address] [place] [address] Care Team Providers Name Role Phone Elsewhere, Pcp Primary Care Provider Unavailable Reason for Visit Reason Comments Hypertension medication dose reduction Outpatient (Routine) - Closed Specialty Diagnoses / Procedures Referred By Contact Refer red To Contact Nephrology and Diagnoses Pretransplant Recipient Evaluation Exam Chronic Kidney Disease Stage 4 Glomerular Filtration Rate 15-29 (HCC) Efrem Mohr M.D. [facility] Hypertension [address] [place] [address] Referral ID Status Reason Start Date Expiration Date Visits Requ ested Visits Authorized [id number] Closed 02/10/2019 02/10/2020 1 1 Encounter Details Date Type Department Care Team Description 03/03/2019 Nurse Only Division of Nephrology Jose Mohr M.D. [address] [place] [phone] Hypertension and Hypertension in Taya Blake I. 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 - 03/03/2019 2:15 PM CDT Provider Name: Dr. Mohr Reason for Visit: New short-term patient Relevant History: hypertension, kidney disease and transplant: liver transplant in [address] Mohr reduced carvedilol dose to 3.125 two times a day on 03/01/2019. Preferred arm use for BP: Either. Date last assessed: 03/01/2019 Home BP Monitor: Yes Date last assessed: one year ago Exercise: Yes Patient's weight is: Patient's weight is stable. Tobacco Use: Social History Tobacco Use Smoking Status Never Smoker Smokeless Tobacco Never Used Alcohol Use: Social History Substance and Sexual Activity Alcohol Use No ??? Frequency: Never ??? Binge frequency: Never Dietary Assessment: does not add salt to food, does not add salt when cooking and drinks sporadic caffeine per day Vitals: 03/03/19 1511 03/03/19 1512 03/03/19 1513 03/03/19 1514 BP: 130/64 134/60 138/64 110/60 BP Location: Right arm Right arm Left arm Left arm Patient Position: Sitting Sitting Sitting Standing Cuff Size: Large Pulse: (!) 46 Weight: 81.4 kg Plan of Care: In-office blood pressures are: within goal. Dizziness/Lightheadedness: had dizziness or lightheadedness upon standing. Recommendations given to: increase intake of fluids to 80 ounces per day and be aware of sodium intake. Recommend having home blood pressure monitor assessed for accuracy on an annual basis. Instructed patient to call Nephrology & Hypertension Nurses if blood pressure is greater than 140/90 or with any questions or concerns he might have. Medications: Continue on current medications for now. Patient Contact Information: Preferred contact: cell phone and online message My business card was provided to the patient. Dr. Mohr is scheduled to visit with Mr. Singh following this visit. documented in this encounter Plan of Treatment Upcoming Encounters Date Type Specialty Care Team Description 04/24/2022 Appointment Laboratory Medicine Angélica Granger P.A.-C. [address] [place] [address] [phone] 04/25/2022 Office Visit Otorhinolaryngology Dex Matta APRN, C.N.P., M.S.N. [address] [place] [phone] 05/08/2022 Appointment Laboratory Medicine Angélica Granger P.A.-C. [address] [place] [address] [phone] 05/08/2022 Clinical Admitting/Central Communication Scheduling 05/10/2022 Appointment Radiology Jeremie Rose M.D. [address] [place] [phone] 05/10/2022 Comprehensive Visit Orthopedic Surgery Warner Graves M.D. [address] [place] [address] [phone] 05/22/2022 Appointment Laboratory Medicine Angélica Granger P.A.-C. [address] [place] [phone] 06/05/2022 Appointment Laboratory Medicine Angélica Granger P.A.-C. [address] [place] [address] [phone] 06/19/2022 Appointment Laboratory Medicine Angélica Granger P.A.-C. [address] [place] [phone] 07/03/2022 Appointment Laboratory Medicine Angélica Granger P.A.-C. [address] [place] [phone] 07/17/2022 Appointment Laboratory Medicine Angélica Granger P.A.-C. [address] [place] [address] [phone] 07/31/2022 Appointment Laboratory Medicine Angélica Granger P.A.-C. [address] [place] [phone] 08/14/2022 Appointment Laboratory Medicine Angélica Granger P.A.-C. [address] [place] [phone] 08/28/2022 Appointment Laboratory Medicine Angélica Granger P.A.-C. [address] [place] [phone] documented as of this encounter Visit Diagnoses Diagnosis Pretransplant Recipient Evaluation Exam Chronic Kidney Disease Stage 4 Glomerula r Filtration Rate 15-29 (HCC) documented in this encounter Additional Health Concerns Assessment Noted Time PHQ-9 Depression Total Score: 5 03/02/2019 10:51 AM CD T documented as of this encounter Care Teams Permit Coordinator Relationship Specialty Start Date End Date Elsewhere, Pcp PCP - General Family Medicine 07/29/17 documented as of this encounter
--- OUTSIDE RECORDS SUMMARY | 2022-04-13 12:31 | XMS_ITS | Encounter Summary ---
:1955 Author Organization [facility] Address [address] [place] [address] Care Team Providers Name Role Phone Elsewhere, Pcp Primary Care Provider Unavailable Encounter Details Date Type Department Care Team Description 03/03/2019 Office Visit Efrem Malcolm, Pret nsplant Center for M.D. Recipient Evaluation Transplantation and [address] 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 - 03/03/2019 3:30 PM CDT CHIEF COMPLAINT Mr. Singh returns for review of tests investigations performed as a potential transplant recipient. HISTORY OF PRESENT ILLNESS Mr. Singh has returned to review their transplant candidacy. ASSESSMENT / PLAN #1 Pretransplant Recipient Evaluation Exam I have reviewed the available tests and investigations. Overall I believe he is going to continue slava an excellent kidney transplant candidate. I would moved to have him remain on our list. I do notethe creatinine and the EGFR. Of note is that he is on tacrolimus. He may be able to stay off dialysis for appeared of time. If he is called with an excellent kidney then certainly I would accept this for him. If her marginal kidney I would not. Motion to approve for ongoing listing. #2 Hypertension And Chronic Kidney Disease Stage 1 To 4 He reports that he has worsening fatigue and he attributes this to the increased dose in Carvedilol.Given his lower normal blood pressure this time I have gone ahead and lower the dose to 3.125 mg twice a day under last visit. He had a visit with our colleagues in hypertension nurse practice. Noted is his blood pressure was controlled but I did explain that it will take some time to see the effects of removing or lowering the dose. I do note orthostatic hypotension that occurred. Ultimately I thinkwe should discontinue the carvedilol completely and if we need to use appear beta-georgina. Of note is that he is on alpha georgina for his prostate and this is likely contributing. With appear beta-georgina we can titrate up and down as needed for pulse and blood pressure without significant effect on orthostasis hopefully. I will defer the CKD Clinic follow- up which she be seeing . #3 Bipolar I Disorder (HCC) This has been quiescent and he is on medication. #4 Immunosuppressed State (HCC) Continues immunosuppression for his liver transplant. #5 CKD follow-up He follows with Dr. Priest in the continue the clinic. #6 Obstructive uropathy He continues on alpha blockade. ? 1. Renal diagnoses: Calcineurin inhibitor toxicity 2. [...] 26.65 kg/m??. 8. Functional status: Con Class A 9. Cardiopulmonary (cTNT, EF%, other): Dobutamine stress echocardiogram negative for ischemia preserved ejection fraction and augments with stress. No concerns at the present time. Of note is he did have a hypertensive response to the Dobutamine. 10. History of malignancies: No 11. Health maintenance: Up-to-date with colonoscopy in 2018 12. History of serious infections: No 13. Urinary bladder dysfunction: Some obstructive history but currently on alpha blockade and appears to be doing well 14. Hematology/coagulation: No concerns 15. Other medical: [] 16. Anti-HLA antibodies: He is not sensitized except for lowe Levels anti HLA class 1 antibodies 17. Surgical issues: no concerns 18. Peripheral Vascular Disease (PVD): No 19. Exhausted Vascular Access: No 20. Exhausted Peritoneal Dialysis Access: No 21. Psychosocial/financial concerns: 07/27 22. Pending issues: None 23. Plans for immunosuppression: Per protocol 24. Preferred wait list follow-up for next year: Phone screen should be sufficient Efrem Mohr M.D. documented in this encounter Plan of Treatment Upcoming Encounters Date Type Specialty Care Team Description 04/24/2022 Appointment Laboratory Medicine Angélica Granger P.A.-C. [address] [place] [phone] 04/25/2022 Office Visit Otorhinolaryngology Dex Matta APRN CDemetriusNDemetriusPDemetrius, M.S.N. [address] [place] [phone] 05/08/2022 Appointment Laboratory Medicine Angélica Granger P.A.-C. [address] [place] [phone] 05/08/2022 Clinical Admitting/Central Communication Scheduling 05/10/2022 Appointment Radiology Jeremie Rose M.D. [address] [place] [phone] 05/10/2022 Comprehensive Visit Orthopedic Surgery Warner Graves M.D. [address] [place] [phone] 05/22/2022 Appointment Laboratory Medicine Angélica Granger P.A.-C. [address] [place] [phone] 06/05/2022 Appointment Laboratory Medicine Angélica Granger P.A.-C. [address] [place] [phone] 06/19/2022 Appointment Laboratory Medicine Angélica Granger P.A.-C. [address] [place] [phone] 07/03/2022 Appointment Laboratory Medicine Angélica Granger P.A.-C. [address] [place] [phone] 07/17/2022 Appointment Laboratory Medicine Angélica Granger P.A.-C. [address] [place] [phone] 07/31/2022 Appointment Laboratory Medicine Angélica Granger P.A.-C. [address] [place] [phone] 08/14/2022 Appointment Laboratory Medicine Angélica Granger P.A.-C. [address] [place] [phone] 08/28/2022 Appointment Laboratory Medicine Angélica Granger P.A.-C. [address] [place] [phone] documented as of this encounter Visit Diagnoses Diagnosis Pretransplant Recipient Evaluation Exam - Primary documented in this encounter Additional Health Concerns Assessment Noted Time PHQ-9 Depression Total Score: 5 03/02/2019 10:51 AM CD T documented as of this encounter Care Teams Campus Chaplain Relationship Specialty Start Date End Date Elsewhere, Pcp PCP - General Family Medicine 07/29/17 documented as of this encounter
--- OUTSIDE RECORDS SUMMARY | 2022-04-13 12:32 | XMS_ITS | Encounter Summary ---
:1955 Author Organization [facility] Address [address] [place] [address] Care Team Providers Name Role Phone Elsewhere, Pcp Primary Care Provider Unavailable Reason for Visit Reason Onset Date Comments order clarification 02/11/2019 Encounter Details Date Type Department Care Team Description 02/11/2019 Clinical Curt Vázquez, order clarification Communication [place] for [facility] and [phone] Clinical Regeneration (Work) in [place], [place] [address] [place] [address] Social History Tobacco Use Types Packs/Day Years [...] or slept in a chcf (including now)? 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 - 02/11/2019 9:[address] Mohr said that he can be the caser in to enroll her in CKD clinic. He did not feel another neph appt was needed. He said as long as he saw her prior to the nurse it would be ok. Please let me know if that is not correct. Olena Telephone Encounter - Diana Gambino - 02/11/2019 7:41 AM CDT Called Malika in Nephrology to schedule the neph nurse visit and she is thinking that we need a new order for a neph provider consult. Please advise on appropriate order and what the patient is needingexactly. Place new order if nurse visit isn't needed. Thank you! documented in this encounter Plan of Treatment Upcoming Encounters Date Type Specialty Care Team Description 04/24/2022 Appointment Laboratory Medicine Angélica Granger P.ADurgaC. [address] [place] [phone] 04/25/2022 Office Visit Otorhinolaryngology Dex Matta APRN, C.N.P., M.S.N. [address] [place] [phone] 05/08/2022 Appointment Laboratory Medicine Angélica Granger P.A.-C. [address] [place] [phone] 05/08/2022 Clinical Admitting/Central Communication Scheduling 05/10/2022 Appointment Radiology Jeremie Rose M.D. [address] [place] [phone] 05/10/2022 Comprehensive Visit Orthopedic Surgery Warner Graves M.D. [address] [place] [phone] 05/22/2022 Appointment Laboratory Medicine Angélica Granger P.A.-C. [address] [place] [phone] 06/05/2022 Appointment Laboratory Medicine Angélica Granger P.A.-C. [address] [place] [phone] 06/19/2022 Appointment Laboratory Medicine Angélica Granger P.A.-C. [address] [place] [phone] 07/03/2022 Appointment Laboratory Medicine Angélica Granger P.A.-C. [address] [place] [phone] 07/17/2022 Appointment Laboratory Medicine Angélica Granger P.A.-C. [address] [place] [phone] 07/31/2022 Appointment Laboratory Medicine Angélica Granger P.A.-C. [address] [place] [address] 08/14/2022 Appointment Laboratory Medicine Angélica Granger P.A.-C. [address] [place] [phone] 08/28/2022 Appointment Laboratory Medicine Angélica Granger P.A.-C. [address] [place] [phone] documented as of this encounter Visit Diagnoses Not on filedocumented in this encounter Additional Health Concerns Assessment Noted Time PHQ-9 Depression Total Score: 2 08/25/2018 9:45 AM BOOT LINER MAKER documented as of this encounter Care Teams Cell Operation Supervisor Relationship Specialty Start Date End Date Elsewhere, Pcp PCP - General Family Medicine 07/29/17 documented as of this encounter
--- OUTSIDE RECORDS SUMMARY | 2022-04-13 12:32 | XMS_ITS | Encounter Summary ---
:1955 Author Organization [facility] Address [address] [place] [address] Care Team Providers Name Role Phone Elsewhere, Pcp Primary Care Provider Unavailable Encounter Details Date Type Department Care Team Description 02/12/2019 Hospital Encounter Department of Salvador Brewster splant Recipient Evaluation Exam; Laboratory Medicine T PDemetriusADurgaC. Chronic Kidney Disease and Pathology, [facility] in [place], [place] [address] [place] [address] Social History Tobacco Use Types Packs/Day Years [...] or slept in a long-term (including now)? 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 amLODIPine (NORVASC) 10 TAKE 1 TABLET BY 100 tablet 3 201706/07/2019 mg tablet MOUTH DAILY atorvastatin (LIPITOR) Take 1 tablet (10 90 tablet 1 201803/14/2019 10 mg tablet mg total) by mouth daily. CALCIUM-MAGNESIUM ORAL Take 2 capsules by 0 08/1905/04/2020 mouth 2 (two) times a day. 400mg calcium twice daily carvedilol (COREG) 6.25 Take 1 tablet (6.25 180 tablet 1 08/201803/01/2019 mg tablet mg total) by mouth 2 (two) times a day. cholecalciferol (VITAMIN Take 1 tablet by 0 [...] Medicine Angélica Granger P.A.-C. [address] [place] [phone] 04/25/2022 Office Visit Otorhinolaryngology GosDex jackson APRN, C.N.P., M.S.N. [address] [place] [phone] 05/08/2022 Appointment Laboratory Medicine Angélica Granger P.A.-C. [address] [place] [phone] 05/08/2022 Clinical Admitting/Central Communication Scheduling 05/10/2022 Appointment Radiology Jeremie Rose M.D. [address] [place] [phone] 05/10/2022 Comprehensive Visit Orthopedic Surgery Warner Graves M.D. [address] [place] [phone] 05/22/2022 Appointment Laboratory Medicine Angélica Granger P.A.-C. [address] [place] [phone] 06/05/2022 Appointment Laboratory Medicine Angélica Granger P.A.-C. [address] [place] [phone] 06/19/2022 Appointment Laboratory Medicine Angélica Granger P.A.-C. [address] [place] [phone] 07/03/2022 Appointment Laboratory Medicine Angélica Granger P.A.-C. [address] [place] [phone] 07/17/2022 Appointment Laboratory Medicine Angélica Granger P.A.-C. [address] [place] [phone] 07/31/2022 Appointment Laboratory Medicine Angélica Granger P.A.-C. [address] [place] [phone] 08/14/2022 Appointment Laboratory Medicine Angélica Granger P.A.-C. [address] [place] [phone] 08/28/2022 Appointment Laboratory Medicine Angélica Granger P.A.-C. 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
--- OUTSIDE RECORDS SUMMARY | 2022-04-13 12:32 | XMS_ITS | Encounter Summary ---
:1955 Author Organization [facility] Address [address] [place] [address] Care Team Providers Name Role Phone Elsewhere, Pcp Primary Care Provider Unavailable Reason for Referral Outpatient (Routine) - Closed Specialty Diagnoses / Procedures Referred By Contact Refer red To Contact Nephrology and Diagnoses Pretransplant Recipient Evaluation Exam Chronic Kidney Disease Stage 4 Glomerular Filtration Rate 15-29 (HCC) Efrem Mohr M.D. [facility] Hypertension [address] [place] [phone] Referral ID Status Reason Start Date Expiration Date Visits Requ ested Visits Authorized [id number] Closed 02/10/2019 02/10/2020 1 1 Specialty Diagnoses / Procedures Referred By Contact Refer red To Contact Efrem Mohr M.D. [facility] [address] [place] [phone] Referral ID Status Reason Start Date Expiration Date Visits Requ ested Visits Authorized ransplant (Routine) - Closed Specialty Diagnoses / Procedures Referred By Contact Refer red To Contact Transplant Surgery / Diagnoses Pretransplant Recipient Evaluation Exam Chronic Kidney Disease Stage 4 Glomerular Filtration Rate 15-29 (HCC) Efrem Mohr M.D. [facility] Transplant [address] [place] [phone] Referral ID Status Reason Start Date Expiration Date Visits Requ ested Visits Authorized [id number] Closed 02/10/2019 02/10/2020 1 1 ransplant (Routine) - Closed Specialty Diagnoses / Procedures Referred By Contact Refer red To Contact Transplant Surgery / Diagnoses Pretransplant Recipient Evaluation Exam Chronic Kidney Disease Stage 4 Glomerular Filtration Rate 15-29 ([facility]) Efrem Mohr M.D. [facility] Transplant [address] [place] [phone] Referral ID Status Reason Start Date Expiration Date Visits Requ ested Visits Authorized [id number] Closed 02/10/2019 02/10/2020 1 1 Reason for Visit Reason Onset Date Comments Need Orders 02/10/2019 Encounter Details Date Type Department Care Team Description 02/10/2019 Clinical Communication Jose Malcolm, Need Orders [facility] Trans[facility] and [address] [place] [address] Clinical [facility] in [place], [place] [phone] [place] [address] [place] [phone] (Work) [phone] Social History Tobacco Use Types Packs/Day Years [...] or slept in a mcc (including now)? 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 Mohr. Please order Testing. Thank you! documented in this encounter Plan of Treatment Upcoming Encounters Date Type Specialty Care Team Description 04/24/2022 Appointment Laboratory Medicine Angélica Granger P.A.-CDemetrius [address] [place] [phone] 04/25/2022 Office Visit Otorhinolaryngology Dex Matta, RAMONA, C.N.P., M.S.N. [address] [place] [phone] 05/08/2022 Appointment Laboratory Medicine Angélica Granger P.A.-CDemetrius [address] [place] [phone] 05/08/2022 Clinical Admitting/Central Communication Scheduling 05/10/2022 Appointment Radiology Jeremie Rose M.D. [address] [place] [phone] 05/10/2022 Comprehensive Visit Orthopedic Surgery Warner Graves M.D. [address] [place] [phone] 05/22/2022 Appointment Laboratory Medicine Angélica Granger P.A.-C. [address] [place] [phone] 06/05/2022 Appointment Laboratory Medicine Angélica Granger P.A.-C. [address] [place] [phone] 06/19/2022 Appointment Laboratory Medicine Angélica Granger P.A.-C. [address] [place] [phone] 07/03/2022 Appointment Laboratory Medicine Angélica Granger P.A.-C. [address] [place] [phone] 07/17/2022 Appointment Laboratory Medicine Angélica Granger P.A.-C. [address] [place] [phone] 07/31/2022 Appointment Laboratory Medicine Angélica Granger P.A.-C. [address] [place] [phone] 08/14/2022 Appointment Laboratory Medicine Angélica Granger P.A.-C. [address] [place] [phone] 08/28/2022 Appointment Laboratory Medicine Angélica Granger P.A.-C. [address] [place] [phone] Scheduled Referrals Name Type Priority Associated Diagnoses Order S chedule Transplant Kidney / Outpatient Referral Routine Pretransplant Expected: pancreas office Recipient Evaluation 02/2019 visit (clinic) Exam (Approximate), Chronic Kidney Disease Expir es: Stage 4 Glomerular 0 Filtration Rate 15-29 (HCC) Transplant Kidney / Outpatient Referral Routine Pretransplant Expected: pancreas office Recipient Evaluation 02/2019 visit (clinic) Exam (Approximate), Chronic Kidney Disease Expir es: Stage 4 Glomerular 0 Filtration Rate 15-29 (HCC) Transplant - Kidney Outpatient Referral Routine Pretransplant Expected: pancreas pre Recipient Evaluation 019 education visit Exam (Approximate), (clinic) Chronic Kidney Disease Expir es: Stage 4 Glomerular 0 Filtration Rate 15-29 (HCC) Nephrology nurse Outpatient Referral Routine Pretransplant Exp ected: visit (clinic) Recipient Evaluation 03/02 Exam (Approximate), Chronic Kidney Disease Expir es: Stage 4 Glomerular 0 Filtration Rate 15-29 (HCC) documented as of this encounter Results ECHO STRESS 2D WITH COLOR AND LIMITED DOPPLER (03/02/2019 9:05 AM CDT) [facility] Method Time Signature Ejection Fraction [...] effusion. For the complete report, see the Ravti Documents below. See PDF For Result Narrative 03/02/2019 9:39 AM CDT For the complete report, see the Order-L evel Documents below. Final Impressions 1. Dobutamine [...] report, see the Order-L evel Documents below. Final Impressions 1. Dobutamine [...] Result Efrem Mohr M.D. CV ECHO PROCEDURES (ABNORMAL) Urinalysis with Microscopic: Urine, Clean Catch (03/01/2019 10:35 AM CDT) [facility] Method Time Signature Source Midstream 03/01/2019 10:35 AM CDT Appearance Normal Normal 03/01/2019 11:37 AM CDT Osmolality, U 330 150 - 1150 03/01/2019 mOsm/kg 12:42 PM CDT pH, U 6.5 4.5 - 8.0 03/01/2019 12:42 PM CDT Comment: ----ADDITIONAL INFORMATION---- This test was developed and its performa nce characteristics determined by [facility] in a manner co nsistent with CLIA requirements. This test has not bee n cleared or approved by the U.S. Food and Drug Admin istration. Glucose 3 0 - 15 mg/dL 03/01/2019 11:37 AM CDT Protein, U 29 (H) <26 mg/dL 03/01/2019 11:37 AM CDT Comment: ----ADDITIONAL INFORMATION---- On 12/17/2016 the total protein assay me thod changed resulting in approximately a 15% increase in prote in values. Protein/Osmolality 0.88 (H) <0.42 Ratio 03/01/2019 12:42 PM CDT Comment: ----ADDITIONAL INFORMATION---- On 12/17/2016 the total protein assay me thod changed resulting in approximately a 15% increase in prote in values. Predicted 24 Hr Protein 833 mg/24 h 03/01/2019 12:42 PM CDT Predicted Range 264-2623 mg/24 h 03/01/2019 12:42 PM CDT Hemoglobin, QL Trace (A) Negative 03/01/2019 12:00 PM CDT Specimen Anatomical Collection Method Collection Time Receive d Time (Source) Location / / Volume Laterality Urine (Urine, 03/01/2019 10:35 03/01/2019 Clean Catch) AM CDT 10:35 AM CDT Efrem Mohr M.D. LAB URINE ORDERABLES Performing Organization Address [facility] Code Phon e Number [facility] - [address] [place] [address] [facility] Bacterial Culture, Aerobic + Susc, Urine (03/01/2019 10:34 AM CDT) Patholo gist Method Time Signature Urine Culture No growth 03/02/2019 after 1 day 12:47 PM CDT of incubation. Specimen Anatomical Collection Method Collection Time Receive d Time (Source) Location / / Volume Laterality Urine (Urine, 03/01/2019 10:34 03/01/2019 Midstream) AM CDT 12:22 PM CDT Comment: Specimen Source Site: Urine Efrem Mohr M.D. LAB MICROBIOLOGY - GENERAL O RDERABLES Performing Organization Address [facility] Code Phon e Number [facility] - [address] [place] [address] [facility] ECG 12 Lead (03/01/2019 10:20 AM CDT) P athologist Signature Ventricular Rate 59 BPM MUSE ECG/Min SD Interval 166 ms MUSE QRSD Interval 92 ms MUSE QT Interval 440 ms MUSE QTC Interval 435 ms MUSE P Stevenson 27 degrees MUSE R Stevenson -7 degrees MUSE T Wave Stevenson 45 degrees MUSE Specimen Anatomical Collection Method Collection Time Receive d Time (Source) Location / / Volume Laterality 03/01/2019 10:20 03/01/2019 AM CDT 10:41 AM CDT Impressions MUSE - 03/01/2019 10:41 AM CDT Sinus bradycardia Premature atrial complexes Otherwise normal ECG When compared with ECG of 25-MAR-2018 08 :24, Premature atrial complexes are now prese nt Reviewed by SHERYL Ruggiero Narrative This result has an attachment that is no t available. Procedure Note Taylor Ramesh M.D. - 03/01/2019 IMPRESSION: Sinus bradycardia Premature atrial complexes Otherwise normal ECG When compared with ECG of 25-MAR-2018 08 :24, Premature atrial complexes are now prese nt Reviewed by SHERYL Ruggiero Efrem Mohr M.D. ECG ORDERABLES Performing Organization Address City/State/ZIP Code Phon e Number [facility] NA DX Chest AP or PA and [...] Negative chest. RUQ clips. Efrem Mohr M.D. IMG DIAGNOSTIC IMAGING PROCE DURES HIV-1 and HIV-2 Antigen and Antibody Routine Screen, Plasma (03/01/2019 8:38 AM CDT) P athologist Signature HIV-1/-2 Ag Negative Negative 03/01/2019 and Ab Screen, 12:09 PM CDT P Comment: Negative result does not rule out HIV in fection. If exposure to HIV infection occurred <14 d ays ago, contact the laboratory to request additi on of HIV-1 RNA detection / quantification test (HIV QN). Specimen Anatomical Collection Method Collection Time Receive d Time (Source) Location / / Volume Laterality Blood (Blood, 03/01/2019 8:38 AM 03/01/20 19 Venous) CDT 11:30 AM CDT Efrem Mohr M.D. LAB MICROBIOLOGY - BLOOD ORD ERABLES Performing Organization Address City/State/ZIP Code Phon e Number [facility] [address] [place], [place] [address] [facility] HCV Ab Scrn w/Reflex to HCV PCR, Serum (03/01/2019 8:38 AM CDT) P athologist Signature HCV Ab Screen, Negative Negative 03/01/2019 S 12:38 PM CDT Comment: Vgjhla-ik-knrtyl ratio is <1.00 . Specimen Anatomical Collection Method Collection Time Receive d Time (Source) Location / / Volume Laterality Blood (Blood, 03/01/2019 8:38 AM 03/01/20 Venous) CDT 11:29 AM CDT Efrem Mohr M.D. LAB MICROBIOLOGY - BLOOD ORD ERABLES Performing Organization Address [facility]/ZIP [facility] Phon e Number [address] [place] [address] [facility] HBs Antibody, Serum (03/01/2019 8:38 AM CDT) athologist Signature HBs Antibody, Positive 03/01/2019 S 12:38 PM CDT Comment: Patient is considered to be immune to in fection with HBV. ----REFERENCE VALUE---- Unvaccinated: Negative Vaccinated: Positive HBs Antibody, Quantitative, S 64.2 mIU/mL 03/01/2019 12:38 PM CDT Comment: ----REFERENCE VALUE---- Unvaccinated: <5.0 Vaccinated: >=12.0 Specimen Anatomical Collection Method Collection Time Receive d Time (Source) Location / / Volume Laterality Blood (Blood, 03/01/2019 8:38 AM 03/01/20 Venous) CDT 11:29 AM CDT Efrem Mohr M.D. LAB MICROBIOLOGY - BLOOD ORD ERAKAJAL Performing Organization Address [facility] Phon e Number [address] [place] [address] [facility] Hepatitis B Surface Antigen (03/01/2019 8:38 AM CDT) athologist Signature HBs Antigen, S Negative Negative 03/01/2019 12:20 PM CDT Specimen Anatomical Collection Method Collection Time Receive d Time (Source) Location / / Volume Laterality Blood (Blood, 03/01/2019 8:38 AM 03/01/20 Venous) CDT 11:29 AM CDT Efrem Mohr M.D. LAB MICROBIOLOGY - BLOOD ORD ERAKAJAL Performing Organization Address [facility] Phon e Number [address] [place] [address] [facility] HBc Total Ab, Serum (03/01/2019 8:38 AM CDT) athologist Signature HBc Total Ab, Negative Negative 03/01/2019 S 12:37 PM CDT Specimen Anatomical Collection Method Collection Time Receive d Time (Source) Location / / Volume Laterality Blood (Blood, 03/01/2019 8:38 AM 03/01/20 Venous) CDT 11:29 AM CDT Efrem Mohr M.D. LAB MICROBIOLOGY - BLOOD ORD ERABLES Performing Organization Address [facility]/ZIP Code Phon e Number [address] [place] [address] [address] [facility] Hepatitis A IgG Ab, Serum (03/01/2019 8:38 AM CDT) athologist Signature Hepatitis A CANCELED 09/21/2019 [facility] IgG Ab, S 4:13 PM CDT Comment: REVISED RESULTS This report was revised due to a vendor reagent recall. ----PREVIOUSLY REPORTED ---- Positive Result indicates immunity to hepatitis A infection from either vaccination or past exposure to h epatitis A. False-positive results may be observed i n patients with CMV antibodies or heterophilic antibodies. ? ?, Flagged as: Normal (Reported 03/01/2019 12:12) Specimen Anatomical Collection Method Collection Time Receive d Time (Source) Location / / Volume Laterality Blood (Blood, 03/01/2019 8:38 AM 03/01/20 Venous) CDT 11:30 AM CDT Efrem Mohr M.D. LAB MICROBIOLOGY - BLOOD ORD ERAKAJAL Performing Organization Address City/[facility]/ZIP Code Phon e Number [address] [place] [address] [place] [address] Laboratory Medicine and Pathology [address] [place] [address] Dr. MURILLO QuantiFERON-Tb Gold Plus, Blood (03/01/2019 8:38 AM CDT) athologist Signature QuantiFERON-TB Negative Negative 03/02/2019 Gold Plus 12:21 PM CDT Result Comment: No interferon-gamma response to M. tuber culosis antigens was detected. Infection with M. tubercul osis is unlikely. A single negative result does not exclud e infection with M. tuberculosis. In patients at high ris k for M.tuberculosis infection, a second test should be consi dered in accordance with the 2017 ATS/IDSA/CDC Clinical Prac omega Guidelines for Diagnosis of Tuberculosis in Adults and Children [Juanaohn DM et. al. Clin. Infect. Dis. 2017;64(2):111-115]. The reference range for the 'TB1 Ag migdalia s Nil Result' and 'TB2 Ag minus Nil Result' is an Inte rferon-gamma level <0.35 IU/mL. TB1 Ag minus Nil Result 0.01 IU/mL 03/02/2019 12:21 PM CDT TB2 Ag minus Nil Result 0.01 IU/mL 03/02/2019 12:21 PM CDT Mitogen minus Nil Result 8.24 IU/mL 03/02/2019 12:2 1 PM CDT Nil Result 0.06 IU/mL 03/02/2019 12:21 PM CDT Specimen Anatomical Collection Method Collection Time Receive d Time (Source) Location / / Volume Laterality Blood (Blood, 03/01/2019 8:38 AM 03/01/20 19 Venous) CDT 11:08 AM CDT Narrative [facility] - 03/02/2019 12:21 PM CDT Specimen Information: Specimen ID: [id number] Specimen Type: Blood Specimen Collection Start Date: 9 ??8:38 AM Specimen Received Date: 03/01/2019 11:08 AM Specimen ID: [id number] Specimen Type: Blood Specimen Collection Start Date: 9 ??8:38 AM Specimen Received Date: 03/01/2019 11:08 AM Specimen ID: [id number] Specimen Type: Blood Specimen Collection Start Date: 9 ??8:38 AM Specimen Received Date: 03/01/2019 11:08 AM Specimen ID: [id number] Specimen Type: Blood Specimen Collection Start Date: 9 ??8:38 AM Specimen Received Date: 03/01/2019 11:08 AM Efrem Mohr M.D. LAB MICROBIOLOGY - BLOOD ORD ERABLES Performing Organization Address City/State/ZIP Code Phon e Number [facility] [address] [place], [place] [address] HLA Class II SAB Antibody Screen (03/01/2019 8:38 AM CDT) [facility] Method Time Signature Class II SAB Negative Not Applicable 03/03/2019 Overall 9:31 AM CDT Result Class II SAB 0 03/03/2019 cPRA 9:31 AM CDT Comment: ----ADDITIONAL INFORMATION---- This PRA is a [facility] calculated PRA. PRA is based on the antigen frequency of the Tissue Typing patient a nd donor population. ??PRA reflects all antibodie s with a normalized value (MFI) above 300. SAB DRB1 Specificity NONE 03/03/2019 9:31 AM CDT SAB [id number] Specificity NONE 03/03/2019 9:31 A M CDT SAB DQB1 Specificity NONE 03/03/2019 9:31 AM CDT SAB DPB1 Specificity NONE 03/03/2019 9:31 AM CDT Comment: ----ADDITIONAL INFORMATION---- Method: [facility] Performing Laboratory CLIA# [id number] Specimen Anatomical Collection Method Collection Time Receive d Time (Source) Location / / Volume Laterality Blood (Blood, 03/01/2019 8:38 AM 03/01/20 19 Venous) CDT 10:24 AM CDT Efrem Mohr M.D. LAB HLA ORDERABLES Performing Organization Address City/State/ZIP Code Phon e Number [facility] - [address] [place], [place] [address] [facility] HLA Class I SAB Antibody Screen (03/01/2019 8:38 AM CDT) [employer] Method Time Signature Class I SAB Positive Not Applicable 03/03/2019 Overall 8:25 AM CDT Result Class I SAB 7 03/03/2019 cPRA 8:25 AM CDT Comment: ----ADDITIONAL INFORMATION---- This PRA is a [facility] calculated PRA. PRA is based on the antigen frequency of the Tissue Typing patient a nd donor population. ??PRA reflects all antibodie s with a normalized value (MFI) above 300. SAB A Specificity see below 03/03/2019 8:25 AM CDT Comment: 29[317] Format: Serologic equivalent/abbreviated specificity [Normalized Value] shown in decreasing o rder. Note: A serologic equivalent/abbreviated specifi city displayed multiple times could indicate different alleles. SAB B Specificity see below 03/03/2019 8:25 AM CDT Comment: 54[385] Format: Serologic equivalent/abbreviated specificity [Normalized Value] shown in decreasing o rder. Note: A serologic equivalent/abbreviated specifi city displayed multiple times could indicate different alleles. SAB C Specificity NONE 03/03/2019 8:25 AM CDT Comment: ----ADDITIONAL INFORMATION---- Method: [facility] Performing Laboratory CLIA# [id number] Specimen Anatomical Collection Method Collection Time Receive d Time (Source) Location / / Volume Laterality Blood (Blood, 03/01/2019 8:38 AM 03/01/20 19 Venous) CDT 10:24 AM CDT Efrem Mohr M.D. LAB HLA ORDERABLES Performing Organization Address City/[facility] Phon e Number [facility] - [address] (ABNORMAL) Troponin T, 5th Generation (03/01/2019 8:38 AM CDT) P athologist Signature Troponin T, 5th 21 (H) <=15 ng/L 03/01/2019 gen 9:51 AM CDT Specimen Anatomical Collection Method Collection Time Receive d Time (Source) Location / / Volume Laterality Blood (Blood, 03/01/2019 8:38 AM 03/01/20 19 8:52 Venous) CDT AM CDT Efrem Mohr M.D. LAB BLOOD ADD-ON Performing Organization Address City/State/ZIP Code Phon e Number [facility] - [address] (ABNORMAL) CMP (Comprehensive Metabolic Panel) (03/01/2019 8:38 AM CDT) Analysis Performed At Patho logist Time Signature Potassium, S 3.8 3.6 - 5.2 03/01/2019 mmol/L 9:45 AM CDT Sodium, S 138 135 - 145 03/01/2019 mmol/L 9:45 AM CDT Chloride, S 100 98 - 107 03/01/2019 mmol/L 9:45 AM CDT Bicarbonate, S 25 22 - 29 03/01/2019 mmol/L 9:45 AM CDT Anion Gap 13 7 - 15 03/01/2019 9:45 AM CDT BUN (Blood Urea 64 (H) 8 - 24 03/01/2019 Nitrogen), S mg/dL 9:45 AM CDT Creatinine 2.89 (H) 0.74 - 03/01/2019 1.35 mg/dL 9:45 AM CDT eGFR-Non 22 (L) >=60 03/01/2019 Black/ mL/min/BSA 9:45 AM CDT Lithuanian Comment: ----ADDITIONAL INFORMATION---- Estimated GFR calculated using the 2009 CKD_EPI creatinine equation. eGFR-Black/ 25 (L) >=60 mL/min/BSA 2018 9:45 AM CDT Comment: ----ADDITIONAL INFORMATION---- Estimated GFR calculated using the 2009 CKD_EPI creatinine equation. Calcium, Total, S 8.9 8.8 - 10.2 mg/dL 03/01/2019 9:45 AM CDT Glucose, S 128 70 - 140 mg/dL 03/01/2019 9:45 AM CDT Protein, Total, S 6.5 6.3 - 7.9 g/dL 03/01/2019 9:45 A M CDT Albumin, S 4.2 3.5 - 5.0 g/dL 03/01/2019 9:45 AM CDT Aspartate Aminotransferase (AST), S 20 8 - 48 U/L 02/2019 9:45 AM CDT Alkaline Phosphatase, S 79 40 - 129 U/L 03/01/2019 9: 45 AM CDT Alanine Aminotransferase (ALT), S 27 7 - 55 U/L 03/01 9:45 AM CDT Bilirubin, Total, S 0.5 <=1.2 mg/dL 03/01/2019 9:45 AM CDT Specimen Anatomical Collection Method Collection Time Receive d Time (Source) Location / / Volume Laterality Blood (Blood, 03/01/2019 8:38 AM 03/01/20 19 8:52 Venous) CDT AM CDT Efrem Mohr M.D. LAB BLOOD ADD-ON Performing Organization Address City/State/ZIP Code Phon e Number [facility] - [address] [place], [place] [address] [facility] (ABNORMAL) CBC with Differential (03/01/2019 8:38 AM CDT) [facility] gist Method Time Signature Hemoglobin 12.0 (L) 13.2 - 03/01/2019 16.6 g/dL 9:37 AM CDT Hematocrit 36.8 (L) 38.3 - 03/01/2019 48.6 % 9:37 AM CDT Erythrocytes 3.95 (L) 4.35 - 03/01/2019 5.65 9:37 AM CDT x10(12)/L MCV 93.2 78.2 - 03/01/2019 97.9 fL 9:37 AM CDT RBC Distrib Width 12.0 11.8 - 03/01/2019 14.5 % 9:37 AM CDT Platelet Count 181 135 - 317 03/01/2019 x10(9)/L 9:37 AM CDT Leukocytes 4.4 3.4 - 9.6 03/01/2019 x10(9)/L 9:37 AM CDT Neutrophils 2.19 1.56 - 03/01/2019 6.45 9:37 AM CDT x10(9)/L Lymphocytes 1.54 0.95 - 03/01/2019 3.07 9:37 AM CDT x10(9)/L Monocytes 0.56 0.26 - 03/01/2019 0.81 9:37 AM CDT x10(9)/L Eosinophils 0.09 0.03 - 03/01/2019 0.48 9:37 AM CDT x10(9)/L Basophils <0.03 0.01 - 03/01/2019 0.08 9:37 AM CDT x10(9)/L Specimen Anatomical Collection Method Collection Time Receive d Time (Source) Location / / Volume Laterality Blood (Blood, 03/01/2019 8:38 AM 03/01/20 19 8:52 Venous) CDT AM CDT Efrem Mohr M.D. LAB BLOOD ADD-ON Performing Organization Address City/State/ZIP Code Phon e Number [facility] - [address] [place] [address] [facility] documented in this encounter Visit Diagnoses Diagnosis Pretransplant Recipient Evaluation Exam - Primary Fatigue Encounter For Preprocedural Cardiovascul ar Examination Chronic Kidney Disease Stage 4 Glomerula r Filtration Rate 15-29 (HCC) Pretransplant Recipient Evaluation Exam Chronic Kidney Disease Stage 4 Glomerula r Filtration Rate 15-29 (HCC) Encounter For Preprocedural Cardiovascul ar Examination Pretransplant Recipient Evaluation Exam Chronic Kidney Disease Stage 4 Glomerula r Filtration Rate 15-29 (HCC) documented in this encounter Additional Health Concerns Assessment Noted Time PHQ-9 Depression Total Score: 2 08/25/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
--- OUTSIDE RECORDS SUMMARY | 2022-04-13 12:32 | XMS_ITS | Encounter Summary ---
:1955 Author Organization [facility] Address [address] [place] [address] Care Team Providers Name Role Phone Elsewhere, Pcp Primary Care Provider Unavailable Reason for Visit Reason Comments Med Refill Encounter Details Date Type Department Care Team Description 12/23/2018 Refill Division of Nephrology and BuckAna willard Med Refill Hypertension in [place], ( Work) [place] [address] [place] [address] Social History Tobacco Use Types Packs/Day [...] or slept in a usp (including now)? 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 documented in this encounter Plan of Treatment Upcoming Encounters Date Type Specialty Care Team Description 04/24/2022 Appointment Laboratory Medicine Angélica Granger, P.A.-C. [address] [place] [address] [phone] 04/25/2022 Office Visit Otorhinolaryngology Dex Matta, RAMONA, C.N.P., M.S.N. [address] [place] [address] [phone] 05/08/2022 Appointment Laboratory Medicine Angélica Granger, P.A.-C. [address] [place] [address] [phone] 05/08/2022 Clinical Admitting/Central Communication Scheduling 05/10/2022 Appointment Radiology Jeremie Rose M.D. [address] [place] [address] [phone] 05/10/2022 Comprehensive Visit Orthopedic Surgery Warner Graves M.D. [address] [place] [address] [phone] 05/22/2022 Appointment Laboratory Medicine Angélica Granger P.A.-C. [address] [place] [phone] 06/05/2022 Appointment Laboratory Medicine Angélica Granger P.A.-C. [address] [place] [phone] 06/19/2022 Appointment Laboratory Medicine Angélica Granger P.A.-C. [address] [place] [phone] 07/03/2022 Appointment Laboratory Medicine Angélica Granger P.A.-C. [address] [place] [phone] 07/17/2022 Appointment Laboratory Angélica Royal P.A.-C. [address] [place] [phone] 07/31/2022 Appointment Laboratory Medicine Angélica Granger P.A.-C. [address] [place] [phone] 08/14/2022 Appointment Laboratory Angélica Royal P.A.-C. [address] [place] [phone] 08/28/2022 Appointment Laboratory Medicine Angélica Garnger P.A.-C. 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
--- OUTSIDE RECORDS SUMMARY | 2022-04-13 12:32 | XMS_ITS | Encounter Summary ---
:1955 Author Organization [facility] Address [address] [place] [address] Care Team Providers Name Role Phone Elsewhere, Pcp Primary Care Provider Unavailable Encounter Details Date Type Department Care Team Description 12/03/2018 Clinical Communication Curt Vega, Casi [facility], SPRING UP SUPERVISOR, C.N.P., Transplantation and D.N.P. Clinical Regeneration in [address] [place] [address] [place] [address] [place] [address] [phone] Social History Tobacco Use Types Packs/Day Years [...] or slept in a half-way (including now)? 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 [address] [place] [phone] 04/25/2022 Office Visit Otorhinolaryngology eDx Matta APRN, C.N.P., M.S.N. [address] [place] [phone] 05/08/2022 Appointment Laboratory Medicine Angélica Granger P.A.-CDemetrius [address] [place] [address] [phone] 05/08/2022 Clinical Admitting/Central Communication Scheduling 05/10/2022 Appointment Radiology Jeremie Rose M.D. [address] [place] [phone] 05/10/2022 Comprehensive Visit Orthopedic Surgery Warner Graves M.D. [address] [place] [address] [phone] 05/22/2022 Appointment Laboratory Medicine Angélica Granger P.A.-CDemetrius [address] [place] [address] [phone] 06/05/2022 Appointment Laboratory Medicine Angélica Granger P.A.-C. [address] [place] [phone] 06/19/2022 Appointment Laboratory Medicine Angélica Granger P.A.-C. [address] [place] [phone] 07/03/2022 Appointment Laboratory Medicine Angélica Granger P.A.-C. [address] [place] [address] [phone] 07/17/2022 Appointment Laboratory Medicine Angélica Granger P.A.-C. [address] [place] [phone] 07/31/2022 Appointment Laboratory Medicine Angélica Granger P.A.-C. [address] [place] [phone] 08/14/2022 Appointment Laboratory Medicine Angélica Granger P.A.-C. [address] [place] [phone] 08/28/2022 Appointment Laboratory Medicine Angélica Granger P.A.-C. [address] [place] [phone] documented as of this encounter Results HLA Class II SAB Antibody Screen (12/14/2018 1:10 PM CDT) [facility] Time Signature Class II SAB Negative Not Applicable 12/17/2018 Overall 9:04 AM CDT Result Class II SAB 0 12/17/2018 cPRA 9:04 AM CDT Comment: ----ADDITIONAL INFORMATION---- This PRA is a [facility] ue Typing Laboratory calculated PRA. PRA is based on the antigen frequency of the Tissue Typing patient a nd donor population. ??PRA reflects all antibodie s with a normalized value (MFI) above 300. SAB DRB1 Specificity NONE 12/17/2018 9:04 AM CDT SAB [id number] Specificity NONE 12/17/2018 9:04 A M CDT SAB DQB1 Specificity NONE 12/17/2018 9:04 AM CDT SAB DPB1 Specificity NONE 12/17/2018 9:04 AM CDT Comment: ----ADDITIONAL INFORMATION---- Method: [facility] Performing Laboratory CLIA# [id number] Specimen Anatomical Collection Method Collection Time Receive d Time (Source) Location / / Volume Laterality Blood (Blood, 12/14/2018 1:10 PM 12/16/19 19 Venous) CDT 12:03 PM CDT Resulting Agency Comment Mailed In Specimen Kandace Balderas APRN, C.N.P., D.N.P. LAB HLA ORDERABLE S Performing Organization Address City/State/ZIP Code Phon e Number [facility] - [address] [place], [place] [address] [facility] HLA Class I SAB Antibody Screen (12/14/2018 1:10 PM CDT) [facility] gist Method Time Signature Class I SAB Positive Not Applicable 12/17/2018 Overall 8:55 AM CDT Result Class I SAB 7 12/17/2018 cPRA 8:55 AM CDT Comment: ----ADDITIONAL INFORMATION---- This PRA is a [facility] Tiss ue Typing Laboratory calculated PRA. PRA is based on the antigen frequency of the Tissue Typing patient a nd donor population. ??PRA reflects all antibodie s with a normalized value (MFI) above 300. SAB A Specificity see below 12/17/2018 8:55 AM CDT Comment: 29[382] Format: Serologic equivalent/abbreviated specificity [Normalized Value] shown in decreasing o rder. Note: A serologic equivalent/abbreviated specifi city displayed multiple times could indicate different alleles. SAB B Specificity see below 12/17/2018 8:55 AM CDT Comment: 54[129] Format: Serologic equivalent/abbreviated specificity [Normalized Value] shown in decreasing o rder. Note: A serologic equivalent/abbreviated specifi city displayed multiple times could indicate different alleles. SAB C Specificity NONE 12/17/2018 8:55 AM CDT Comment: ----ADDITIONAL INFORMATION---- Method: [facility] Performing Laboratory CLIA# [id number] Specimen Anatomical Collection Method Collection Time Receive d Time (Source) Location / / Volume Laterality Blood (Blood, 12/14/2018 1:10 PM 12/16/19 19 Venous) CDT 12:03 PM CDT Resulting Agency Comment Mailed In Specimen Kandace Balderas APRN, C.N.P., D.N.P. LAB HLA ORDERABLE S Performing Organization Address City/State/[facility] Code Phon e Number [facility] - [address] [place] [address] [facility] documented in this encounter Visit Diagnoses Diagnosis Pretransplant Recipient Evaluation Exam - Primary Chronic Kidney Disease documented in this encounter Additional Health Concerns Assessment Noted Time PHQ-9 Depression Total Score: 2 08/25/2018 9:45 AM PRINTED CIRCUIT PHOTOGRAPHER documented as of this encounter Care Teams Envelope Sealer Operator Relationship Specialty Start Date End Date Elsewhere, Pcp PCP - General Family Medicine 07/29/17 documented as of this encounter
--- OUTSIDE RECORDS SUMMARY | 2022-04-13 12:32 | XMS_ITS | Encounter Summary ---
:1955 Author Organization [facility] Address [address] [place] [address] Care Team Providers Name Role Phone Elsewhere, Pcp Primary Care Provider Unavailable Reason for Visit Reason Comments Med Refill Encounter Details Date Type Department Care Team Description 12/09/2018 [facility] Leonid Camejo M.D. Med Refill Transplantation and Clinical [address] [place] [address] [facility] [phone] [place] [address] [place] [address] [phone] Social History Tobacco Use Types Packs/Day Years [...] at Date Recorded Male 05/16/2020 4:27 PM TUBE COREMAKER documented as of this encounter Plan of Treatment Upcoming Encounters Date Type Specialty Care Team Description 04/24/2022 Appointment Laboratory Medicine Angélica Granger P.A.-CDemetrius [address] [place] [address] [phone] 04/25/2022 Office Visit Otorhinolaryngology Dex Matta APRN, C.N.P., M.S.N. [address] [place] [address] [phone] 05/08/2022 Appointment Laboratory Medicine Angélica Granger P.A.-CDemetrius [address] [place] [address] [phone] 05/08/2022 Clinical Admitting/Central Communication Scheduling 05/10/2022 Appointment Radiology Jeremie Rose M.D. [address] [place] [phone] 05/10/2022 Comprehensive Visit Orthopedic Surgery Warner Graves M.D. [address] [place] [address] [phone] 05/22/2022 Appointment Laboratory Medicine Angélica Granger P.A.-CDemetrius [address] [place] [phone] 06/05/2022 Appointment Laboratory Medicine Angélica Granger P.A.-C. [address] [place] [phone] 06/19/2022 Appointment Laboratory Medicine Angélica Granger P.A.-C. [address] [place] [phone] 07/03/2022 Appointment Laboratory Medicine Angélica Granger P.A.-C. [address] [place] [phone] 07/17/2022 Appointment Laboratory Medicine Angélica Granger P.A.-C. [address] [place] [phone] 07/31/2022 Appointment Laboratory Medicine Angélica Granger P.A.-C. [address] [place] [phone] 08/14/2022 Appointment Laboratory Medicine Angélica Granger P.A.-C. [address] [place] [phone] 08/28/2022 Appointment Laboratory Angélica Royal P.A.-C. [address] [place] [phone] documented as of this encounter Visit Diagnoses Diagnosis Transplant Liver (HCC) documented in this encounter Additional Health Concerns Assessment Noted Time PHQ-9 Depression Total Score: 2 08/25/2018 9:45 AM TUBE COREMAKER documented as of this encounter Care Teams Surveyor Hydrographic Relationship Specialty Start Date End Date Elsewhere, Pcp PCP - General Family Medicine 07/29/17 documented as of this encounter
--- OUTSIDE RECORDS SUMMARY | 2022-04-13 12:32 | XMS_ITS | Encounter Summary ---
:1955 Author Organization [facility] Address [address] [place] [address] Care Team Providers Name Role Phone Elsewhere, Pcp Primary Care Provider Unavailable Encounter Details Date Type Department Care Team Description 02/12/2019 Clinical Communication Monserrat Owusu [place] [facility], P.A.-C. 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 [address] [place] [phone] 04/25/2022 Office Visit Otorhinolaryngology Dex Matta, RAMONA, C.N.P., M.S.N. [address] [place] [address] [phone] 05/08/2022 Appointment Laboratory Medicine Angélica Granger P.A.-Janette [address] [place] [phone] 05/08/2022 Clinical Admitting/Central Communication Scheduling 05/10/2022 Appointment Radiology Jeremie Rose M.D. [address] [place] [phone] 05/10/2022 Comprehensive Visit Orthopedic Surgery Warner Graves M.D. [address] [place] [phone] 05/22/2022 Appointment Laboratory Medicine Angélica Granger P.A.-CDemetrius [address] [place] [phone] 06/05/2022 Appointment Laboratory Medicine Angélica Granger P.A.-CDemetrius [address] [place] [phone] 06/19/2022 Appointment Laboratory Medicine Angélica Granger P.A.-C. [address] [place] [address] [phone] 07/03/2022 Appointment Laboratory Medicine Angélica Granger P.A.-C. [address] [place] [address] [phone] 07/17/2022 Appointment Laboratory Medicine Angélica Granger P.A.-C. [address] [place] [address] [phone] 07/31/2022 Appointment Laboratory Medicine Angélica Granger P.A.-C. [address] [place] [address] [phone] 08/14/2022 Appointment Laboratory Medicine Angélica Granger P.A.-C. [address] [place] [address] [phone] 08/28/2022 Appointment Laboratory Medicine Angélica Granger P.A.-C. [address] [place] [phone] documented as of this encounter Visit Diagnoses Diagnosis Pretransplant Recipient Evaluation Exam - Primary Chronic Kidney Disease documented in this encounter Additional Health Concerns Assessment Noted Time PHQ-9 Depression Total Score: 2 08/25/2018 9:45 AM FLEET 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 documented as of this encounter Care Teams Voltage Regulator Assembler Relationship Specialty Start Date End Date Elsewhere, Pcp PCP - General Family Medicine 07/29/17 documented as of this encounter
--- OUTSIDE RECORDS SUMMARY | 2022-04-13 12:32 | XMS_ITS | Encounter Summary ---
:1955 Author Organization [facility] Address [address] [place] [address] Care Team Providers Name Role Phone Elsewhere, Pcp Primary Care Provider Unavailable Reason for Visit Reason Comments Med Refill Encounter Details Date Type Department Care Team Description 12/18/2018 [facility] Leonid Camejo M.D. Med Refill Transplantation and Clinical [address] [place] [address] in [facility] [phone] [place] [address] [place] [address] [phone] Social History Tobacco Use Types Packs/Day Years [...] slept in a senior care (including now)? 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 [address] [place] [address] [phone] 05/08/2022 Appointment Laboratory Medicine Angélica Granger P.A.-CDemetrius [address] [place] [address] [phone] 05/08/2022 Clinical Admitting/Central Communication Scheduling 05/10/2022 Appointment Radiology Jeremie Rose M.D. [address] [place] [phone] 05/10/2022 Comprehensive Visit Orthopedic Surgery Warner Graves M.D. [address] [place] [address] [phone] 05/22/2022 Appointment Laboratory Medicine Angélica Granger P.A.-CDemetrius [address] [place] [phone] 06/05/2022 Appointment Laboratory Medicine Angélica Granger P.A.-C. [address] [place] [phone] 06/19/2022 Appointment Laboratory Medicine Angélica Granger P.A.-C. [address] [place] [phone] 07/03/2022 Appointment Laboratory Medicine Angélica Granger P.A.-C. [address] [place] [phone] 07/17/2022 Appointment Laboratory Medicine Angélica Granger P.A.-C. [address] [place] [phone] 07/31/2022 Appointment Laboratory Medicine Angélica Granger P.A.-C. [address] [place] [phone] 08/14/2022 Appointment Laboratory Angélica Royal P.A.-C. [address] [place] [phone] 08/28/2022 Appointment Laboratory Angélica Royal P.A.-C. [address] [place] [phone] documented as of this encounter Visit Diagnoses Not on filedocumented in this encounter Additional Health Concerns Assessment Noted Time PHQ-9 Depression Total Score: 2 08/25/2018 9:45 AM MARKETING PROGRAM MANAGER documented as of this encounter Care Teams Rn Surgical Relationship Specialty Start Date End Date Elsewhere, Pcp PCP - General Family Medicine 07/29/17 documented as of this encounter
--- OUTSIDE RECORDS SUMMARY | 2022-04-13 12:32 | XMS_ITS | Encounter Summary ---
:1955 Author Organization [facility] Address [address] [place] [address] Care Team Providers Name Role Phone Elsewhere, Pcp Primary Care Provider Unavailable Reason for Visit Reason Onset Date Comments Telephone 11/05/2018 Lab questions Encounter Details Date Type Department Care Team Description 11/05/2018 Clinical Curt Marie, Teleph one (Lab Communication Center for carina Cortez) Transplantation and MDemetriusSSteve, Clinical Regeneration R.N., in [facility] C.C.T.C [address] [facility] [address] [facility] [address] [facility] [phone] [place] [phone] Social History Tobacco Use Types Packs/Day Years [...] slept in a skilled nursing (including now)? 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 - 11/05/2018 9:27 AM CDT SUBJECTIVE CHIEF COMPLAINT / REASON FOR CALL Telephone (Lab questions) INFORMATION DISCUSSED Returned patient's phone call regarding where his labs are posted in the patient portal. I informed him they could be found under clinic notes or test results. PLAN Disposition/Recommendation: self-care appropriate at this time . Education: patient/caller able to teach back Caller agreeable to plan of care: yes The following references were used: nursing clinical judgement Telephone Encounter - Rachelle Chappell - 11/05/2018 9:01 AM CDT Patient would like a call back to discuss his current lab results as well as to ask a couple other questions. Please call him to discuss. documented in this encounter Plan of Treatment Upcoming Encounters Date Type Specialty Care Team Description 04/24/2022 Appointment Laboratory Medicine Angélica Granger P.A.-C. [address] [place] [phone] 04/25/2022 Office Visit Otorhinolaryngology GosDex jackson APRN, C.N.P., M.S.N. [address] [place] [address] [phone] 05/08/2022 Appointment Laboratory Medicine Angélica Granger P.A.-C. [address] [place] [phone] 05/08/2022 Clinical Admitting/Central Communication Scheduling 05/10/2022 Appointment Radiology Jeremie Rose M.D. [address] [place] [phone] 05/10/2022 Comprehensive Visit Orthopedic Surgery Warner Graves M.D. [address] [place] [phone] 05/22/2022 Appointment Laboratory Medicine Angélica Granger P.A.-C. [address] [place] [phone] 06/05/2022 Appointment Laboratory Medicine Angélica Granger P.A.-C. [address] [place] [phone] 06/19/2022 Appointment Laboratory Medicine Angélica Granger P.A.-C. [address] [place] [phone] 07/03/2022 Appointment Laboratory Medicine Angélica Granger P.A.-C. [address] [place] [phone] 07/17/2022 Appointment Laboratory Medicine Angélica Granger P.A.-C. [address] [place] [phone] 07/31/2022 Appointment Laboratory Medicine Angélica Granger P.A.-C. [address] [place] [phone] 08/14/2022 Appointment Laboratory Medicine Angélica Granger P.A.-C. [address] [place] [phone] 08/28/2022 Appointment Laboratory Medicine Angélica Granger P.A.-C. [address] [place] [phone] documented as of this encounter Visit Diagnoses Not on filedocumented in this encounter Additional Health Concerns Assessment Noted Time PHQ-9 Depression Total Score: 2 08/25/2018 9:45 AM AUTOMATION ENGINEER documented as of this encounter Care Teams Service Line Layer Relationship Specialty Start Date End Date Elsewhere, Pcp PCP - General Family Medicine 07/29/17 documented as of this encounter
--- OUTSIDE RECORDS SUMMARY | 2022-04-13 12:32 | XMS_ITS | Encounter Summary ---
:1955 Author Organization [facility] Address [address] [place] [address] Care Team Providers Name Role Phone Elsewhere, Pcp Primary Care Provider Unavailable Reason for Visit Reason Comments Med Refill Encounter Details Date Type Department Care Team Description 12/25/2018 Refill Division of Nephrology and Cheryl Ocampo R.N. Med Refill Hypertension in [place], [facility] [place] [address] [place] [address] [place] [address] [place], [place] [address] [phone] Social History Tobacco Use Types Packs/Day Years [...] slept in a long term (including now)? 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 - 12/25/2018 3:47 PM CDT Prescription for torsemide forwarded to provider for approval. Outside RN protocol due to historicalentry. documented in this encounter Plan of Treatment Upcoming Encounters Date Type Specialty Care Team Description 04/24/2022 Appointment Laboratory Medicine Angélica Granger, P.A.-CDemetrius [address] [place] [phone] 04/25/2022 Office Visit Otorhinolaryngology Dex Matta APRN, C.N.P., M.S.N. [address] [place] [phone] 05/08/2022 Appointment Laboratory Medicine Angélica Granger, P.A.-CDemetrius [address] [place] [phone] 05/08/2022 Clinical Admitting/Central Communication Scheduling 05/10/2022 Appointment Radiology Jeremie Rose M.D. [address] [place] [phone] 05/10/2022 Comprehensive Visit Orthopedic Surgery Warner Graves M.D. [address] [place] [phone] 05/22/2022 Appointment Laboratory Medicine Angélica Granger P.A.-C. [address] [place] [phone] 06/05/2022 Appointment Laboratory Medicine Angélica Granger P.A.-C. [address] [place] [phone] 06/19/2022 Appointment Laboratory Medicine Angélica Granger P.A.-C. [address] [place] [phone] 07/03/2022 Appointment Laboratory Medicine Angélica Granger P.A.-C. [address] [place] [phone] 07/17/2022 Appointment Laboratory Medicine Angélica Granger P.A.-C. [address] [place] [phone] 07/31/2022 Appointment Laboratory Medicine Angélica Granger P.A.-C. [address] [place] [phone] 08/14/2022 Appointment Laboratory Medicine Angélica Granger P.A.-C. [address] [place] [phone] 08/28/2022 Appointment Laboratory Medicine Angélica Granger P.A.-C. [address] [place] [phone] documented as of this encounter Visit Diagnoses Not on filedocumented in this encounter Additional Health Concerns Assessment Noted Time PHQ-9 Depression Total Score: 2 08/25/2018 9:45 AM DIRECTOR FOOD AND BEVERAGE documented as of this encounter Care Teams Analytical Chemistry Teacher Relationship Specialty Start Date End Date Elsewhere, Pcp PCP - General Family Medicine 07/29/17 documented as of this encounter
--- OUTSIDE RECORDS SUMMARY | 2022-04-13 12:32 | XMS_ITS | Encounter Summary ---
:1955 Author Organization [facility] Address [address] [place] [address] Care Team Providers Name Role Phone Elsewhere, Pcp Primary Care Provider Unavailable Encounter Details Date Type Department Care Team Description 12/07/2018 Hospital Encounter [facility] Recipient Evaluation Exam; Laboratory Medicine M, SPRING FITTER, C.N.P., Mara cadena [facility], D.N.PDemetrius [place], [place] [address] [place] [phone] [place] [address] [place], [place] (Work) [phone] Social History Tobacco Use Types Packs/Day Years [...] 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 capsule doxazosin (CARDURA) 8 mg Take 1 tablet (8 mg 90 tablet 3 01/25/2019 tabletIndications: total) by mouth Hypertension Essential daily. Take at Primary night fluticasone (FLONASE Administer 1 spray 0 017 [...] TWICE DAILY levothyroxine TAKE 1 TABLET BY 100 tablet 0 09/15/201812/10 (SYNTHROID, LEVOTHROID) MOUTH EVERY MORNING 25 mcg tablet 30 MINUTES BEFORE BREAKFAST multivitamin tablet Take 1 tablet by 0 06/18/2013 10/12/2021 mouth daily. Maintenance mycophenolate (CELLCEPT) TAKE 1 TABLET BY 180 tablet 0 09/1412/09/2018 500 mg MOUTH TWICE DAILY tabletIndications: Transplant Liver (HCC) predniSONE (DELTASONE) 5 TAKE 1 TABLET BY 90 tablet 3 08/0507/26/2019 mg tablet MOUTH DAILY tacrolimus (PROGRAF) 0.5 TAKE 2 CAPSULES BY 360 capsule 3 07/26/2019 mg capsuleIndications: MOUTH EVERY 12 Transplant Liver (HCC) HOURS torsemide (DEMADEX) 10 Take 3 tablets by 0 201712/25/2018 mg tablet mouth daily. Restarted on 03-26-17. Maintenance. traZODone (DESYREL) 100 Take 1 tablet by 0 201610/12/2020 mg tablet mouth at bedtime as needed for sleep. Maintenance documented as of this encounter Plan of Treatment Upcoming Encounters Date Type Specialty Care Team Description 04/24/2022 Appointment Laboratory Medicine Angélica Granger P.ASky [address] [place] [phone] 04/25/2022 Office Visit Otorhinolaryngology Dex Matta APRN CDemetriusNDemetriusPDemetrius, M.S.N. [address] [place] [phone] 05/08/2022 Appointment Laboratory Medicine Angélica Granger P.A.-C. [address] [place] [phone] 05/08/2022 Clinical Admitting/Central Communication Scheduling 05/10/2022 Appointment Radiology Jeremie Rose M.D. [address] [place] [phone] 05/10/2022 Comprehensive Visit Orthopedic Surgery Warner Graves M.D. [address] [place] [phone] 05/22/2022 Appointment Laboratory Medicine Angélica Granger P.A.-C. [address] [place] [phone] 06/05/2022 Appointment Laboratory Medicine Angélica Granger P.A.-C. [address] [place] [phone] 06/19/2022 Appointment Laboratory Medicine Angélica Granger P.A.-C. [address] [place] [phone] 07/03/2022 Appointment Laboratory Medicine Angélica Granger P.A.-C. [address] [place] [phone] 07/17/2022 Appointment Laboratory Medicine Angélica Granger P.A.-C. [address] [place] [phone] 07/31/2022 Appointment Laboratory Medicine Angélica Granger P.A.-C. [address] [place] [phone] 08/14/2022 Appointment Laboratory Medicine Angélica Granger P.A.-C. [address] [place] [phone] 08/28/2022 Appointment Laboratory Medicine Angélica Granger P.A.-C. [address] [place] [phone] documented as of this encounter Procedures Procedure Name Priority Date/Time Associated Diagnosis Comme nts HLA CLASS II SAB Routine 12/14/2018 1:10 PM Pretransplant Resu lts for this ANTIBODY SCREEN CDT Recipient Evaluation proc edure are in Exam the results Chronic Kidney Disease secti on. HLA CLASS I SAB Routine 12/14/2018 1:10 PM Pretransplant Resul ts for this ANTIBODY SCREEN CDT Recipient Evaluation proc edure are in Exam the results Chronic Kidney Disease secti on. documented in this encounter Results HLA Class II SAB Antibody Screen (12/14/2018 1:10 PM CDT) [facility] Method Time Signature Class II SAB Negative Not Applicable 12/17/2018 Overall 9:04 AM CDT Result Class II SAB 0 12/17/2018 cPRA 9:04 AM CDT Comment: ----ADDITIONAL INFORMATION---- This PRA is a [facility] calculated PRA. PRA is based on the antigen frequency of the Tissue Typing patient a nd donor population. ??PRA reflects all antibodie s with a normalized value (MFI) above 300. SAB DRB1 Specificity NONE 12/17/2018 9:04 AM CDT SAB [id number] Specificity NONE 12/17/2018 9:04 A M CDT SAB DQB1 Specificity NONE 12/17/2018 9:04 AM CDT SAB DPB1 Specificity NONE 12/17/2018 9:04 AM CDT Comment: ----ADDITIONAL INFORMATION---- Method: [facility] Performing Laboratory CLIA# [id number] Specimen Anatomical Collection Method Collection Time Receive d Time (Source) Location / / Volume Laterality Blood (Blood, 12/14/2018 1:10 PM 12/16/19 19 Venous) CDT 12:03 PM CDT Resulting Agency Comment Mailed In Specimen Kandace Balderas APRN, C.N.P., D.N.P. LAB HLA ORDERABLE S Performing Organization Address City/State/ZIP Code Phon e Number [facility] - [address] [place], [place] [address] [facility] HLA Class I SAB Antibody Screen (12/14/2018 1:10 PM CDT) [facility] Method Time Signature Class I SAB Positive Not Applicable 12/17/2018 Overall 8:55 AM CDT Result Class I SAB 7 12/17/2018 cPRA 8:55 AM CDT Comment: ----ADDITIONAL INFORMATION---- This PRA is a [facility] calculated [...] see below 12/17/2018 8:55 AM CDT Comment: 54[519] Format: Serologic equivalent/abbreviated specificity [Normalized Value] shown in decreasing o rder. Note: A serologic equivalent/abbreviated specifi city displayed multiple times could indicate different alleles. SAB C Specificity NONE 12/17/2018 8:55 AM CDT Comment: ----ADDITIONAL INFORMATION---- Method: [facility] Performing Laboratory CLIA# [id number] Specimen Anatomical Collection Method Collection Time Receive d Time (Source) Location / / Volume Laterality Blood (Blood, 12/14/2018 1:10 PM 12/16/19 19 Venous) CDT 12:03 PM CDT Resulting Agency Comment Mailed In Specimen Kandace Baldersa APRN, C.N.P., D.N.P. LAB HLA ORDERABLE S Performing Organization Address City/State/ZIP Code Phon e Number [facility] - [address] [place], [place] [address] [facility] documented in this encounter Visit Diagnoses Diagnosis Pretransplant Recipient Evaluation Exam Chronic Kidney Disease documented in this encounter Additional Health Concerns Assessment Noted Time PHQ-9 Depression Total Score: 2 08/25/2018 9:45 AM EXCHANGE ARCHITECT documented as of this encounter Care Teams Senior Engineering Tech Relationship Specialty Start Date End Date Elsewhere, Pcp PCP - General Family Medicine 07/29/17 documented as of this encounter
--- OUTSIDE RECORDS SUMMARY | 2022-04-13 12:32 | XMS_ITS | Encounter Summary ---
:1955 Author Organization [facility] Address [address] [place] [address] Care Team Providers Name Role Phone Elsewhere, Pcp Primary Care Provider Unavailable Encounter Details Date Type Department Care Team Description 02/09/2019 Clinical Communication Curt Loera, Center for Patricia Azevedo R.N., Transplantation and C.C.T.C. 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 - 02/09/2019 4:28 PM CDT Type of Appointment: Waitlist On Dialysis: No SPK: No Chemdep: No Mood Consult: No Cardiology Consult: No Extra Consults: PMR, CKD clinic Requested Provider: na Patient Not Available to Come: no- wants to come now. If we can't get in for waitlist right away; maybe we can start with CKD clinic first. Angiogram: na Colonoscopy: up to date Pap: na Mammo: na Previous Tx W/U: [facility] documented in this encounter Plan of Treatment Upcoming Encounters Date Type Specialty Care Team Description 04/24/2022 Appointment Laboratory Medicine Angélica Granger P.A.-C. [address] [place] [phone] 04/25/2022 Office Visit Otorhinolaryngology Dex Matta, RAMONA, C.N.P., M.S.N. [address] [place] [phone] 05/08/2022 Appointment Laboratory Medicine Angélica Granger P.A.-C. [address] [place] [phone] 05/08/2022 Clinical Admitting/Central Communication Scheduling 05/10/2022 Appointment Radiology Jeremie Rose M.D. [address] [place] [phone] 05/10/2022 Comprehensive Visit Orthopedic Surgery Warner Graves M.D. [address] [place] [phone] 05/22/2022 Appointment Laboratory Medicine Angélica Granger P.A.-C. [address] [place] [phone] 06/05/2022 Appointment Laboratory Medicine Angélica Granger P.A.-C. [address] [place] [phone] 06/19/2022 Appointment Laboratory Medicine Angélica Granger P.A.-C. [address] [place] [phone] 07/03/2022 Appointment Laboratory Medicine Angélica Granger P.A.-C. [address] [place] [phone] 07/17/2022 Appointment Laboratory Medicine Angélica Granger P.A.-C. [address] [place] [phone] 07/31/2022 Appointment Laboratory Medicine Angélica Granger P.A.-C. [address] [place] [phone] 08/14/2022 Appointment Laboratory Medicine Angélica Granger P.A.-C. [address] [place] [phone] 08/28/2022 Appointment Laboratory Medicine Angélica Granger P.A.-C. [address] [place] [phone] documented as of this encounter Visit Diagnoses Not on filedocumented in this encounter Additional Health Concerns Assessment Noted Time PHQ-9 Depression Total Score: 2 08/25/2018 9:45 AM CERTIFIED NOVELL ENGINEER documented as of this encounter Care Teams Annealer Helper Relationship Specialty Start Date End Date Elsewhere, Pcp PCP - General Family Medicine 07/29/17 documented as of this encounter
--- OUTSIDE RECORDS SUMMARY | 2022-04-13 12:32 | XMS_ITS | Encounter Summary ---
:1955 Author Organization [facility] Address [address] [place] [address] Care Team Providers Name Role Phone Elsewhere, Pcp Primary Care Provider Unavailable Reason for Visit Reason Onset Date Comments financial approval 02/10/2019 Encounter Details Date Type Department Care Team Description 02/10/2019 Clinical Curt Vázquez, financ ial approval Communication Center for Diana G [facility] and [phone] Clinical Regeneration (Work) in [place], [place] [address] [place] [address] Social History Tobacco Use Types Packs/Day Years [...] or slept in a assisted (including now)? 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 - 02/10/2019 10:18 AM CDT Ok to re-eval Telephone Encounter - Diana Gambino - 02/10/2019 8:03 AM CDT Received notification that patient should come for [facility] appts. Please advise if we still have financial approval. Thank you! documented in this encounter Plan of Treatment Upcoming Encounters Date Type Specialty Care Team Description 04/24/2022 Appointment Laboratory Medicine Angélica Granger P.A.-CDemetrius [address] [place] [phone] 04/25/2022 Office Visit Otorhinolaryngology Dex Matta APRN, C.N.P., M.S.N. [address] [place] [phone] 05/08/2022 Appointment Laboratory Medicine Angélica Granger P.A.-CDemetrius [address] [place] [phone] 05/08/2022 Clinical Admitting/Central Communication Scheduling 05/10/2022 Appointment Radiology Jeremie Rose M.D. [address] [place] [phone] 05/10/2022 Comprehensive Visit Orthopedic Surgery Warner Graves M.D. [address] [place] [phone] 05/22/2022 Appointment Laboratory Medicine Angélica Granger P.A.-C. [address] [place] [phone] 06/05/2022 Appointment Laboratory Medicine Angélica Granger P.A.-C. [address] [place] [phone] 06/19/2022 Appointment Laboratory Medicine Angélica Granger P.A.-C. [address] [place] [phone] 07/03/2022 Appointment Laboratory Medicine Angélica Granger P.A.-C. [address] [place] [phone] 07/17/2022 Appointment Laboratory Medicine Angélica Granger P.A.-C. [address] [place] [phone] 07/31/2022 Appointment Laboratory Medicine Angélica Granger P.A.-C. [address] [place] [phone] 08/14/2022 Appointment Laboratory Medicine Angélica Granger P.A.-C. [address] [place] [phone] 08/28/2022 Appointment Laboratory Medicine Angélica Granger P.A.-C. 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
--- OUTSIDE RECORDS SUMMARY | 2022-04-13 12:32 | XMS_ITS | Encounter Summary ---
:1955 Author Organization [facility] Address [address] [place] [address] Care Team Providers Name Role Phone Elsewhere, Pcp Primary Care Provider Unavailable Reason for Visit Reason Comments Med Refill Encounter Details Date Type Department Care Team Description 12/10/2018 [facility] Leonid Camejo M.D. Med Refill Transplantation and Clinical [address] [place] [address] in [facility] [phone] [place] [address] [place] [address] [phone] Social History Tobacco Use Types Packs/Day Years [...] or slept in a residential (including now)? 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 [address] [place] [phone] 05/08/2022 Appointment Laboratory Medicine Angélica Granger P.A.-CDemetrius [address] [place] [phone] 05/08/2022 Clinical Admitting/Central Communication Scheduling 05/10/2022 Appointment Radiology Jeremie Rose M.D. [address] [place] [phone] 05/10/2022 Comprehensive Visit Orthopedic Surgery Warner Graves M.D. [address] [place] [phone] 05/22/2022 Appointment Laboratory Medicine Angélica Granger P.A.-CDemetrius [address] [place] [phone] 06/05/2022 Appointment Laboratory Medicine Angélica Granger P.A.-C. [address] [place] [phone] 06/19/2022 Appointment Laboratory Medicine Angélica Granger P.A.-C. [address] [place] [phone] 07/03/2022 Appointment Laboratory Medicine Angélica Granger P.A.-C. [address] [place] [phone] 07/17/2022 Appointment Laboratory Medicine Angélica Granger P.A.-C. [address] [place] [phone] 07/31/2022 Appointment Laboratory Medicine Angélica Granger P.A.-C. [address] [place] [phone] 08/14/2022 Appointment Laboratory Angélica Royal P.A.-C. [address] [place] [phone] 08/28/2022 Appointment Laboratory Angélica Royal P.A.-C. [address] [place] [phone] documented as of this encounter Visit Diagnoses Not on filedocumented in this encounter Additional Health Concerns Assessment Noted Time PHQ-9 Depression Total Score: 2 08/25/2018 9:45 AM STUDENT DEVELOPMENT COORDINATOR documented as of this encounter Care Teams Writer Editor Relationship Specialty Start Date End Date Elsewhere, Pcp PCP - General Family Medicine 07/29/17 documented as of this encounter
--- OUTSIDE RECORDS SUMMARY | 2022-04-13 12:32 | XMS_ITS | Encounter Summary ---
:1955 Author Organization [facility] Address [address] [place] [address] Care Team Providers Name Role Phone Elsewhere, Pcp Primary Care Provider Unavailable Reason for Visit Reason Onset Date Comments Dental Return Visit 02/01/2019 Encounter Details Date Type Department Care Team Description 02/01/2019 Clinical Curt Dove, Dental Return Communication Center for Blanca Draper, Visit Transplantation and R.N. Clinical Regeneration [phone] in [facility]) [place] [address] [place] [address] Social History Tobacco Use Types Packs/Day Years [...] slept in a care home (including now)? 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 - 02/01/2019 12:28 PM CDT SUBJECTIVE CHIEF COMPLAINT / REASON FOR CALL Dental Return Visit INFORMATION DISCUSSED Returned Fe's call to inform her that Bruce does not need to take any antibiotics prior to his dental filling. PLAN Disposition/Recommendation: self-care appropriate at this time . Education: patient/caller able to teach back Caller agreeable to plan of care: yes The following references were used: nursing clinical judgement Telephone Encounter - Patricia Pinto R.N., C.C.T.C. - 02/01/2019 11:57 AM CDT From our standpoint pre kidney transplant he does not need to take antibiotics prior to a dental procedure. Telephone Encounter - Blanca Canales R.N. - 02/01/2019 11:11 AM CDT Hi Olena, From a liver standpoint, Bruce does not need to take antibiotics prior to a dental filling. I just want to double check with you from a pre kidney standpoint. Blanca Rasheed documented in this encounter Plan of Treatment Upcoming Encounters Date Type Specialty Care Team Description 04/24/2022 Appointment Laboratory Medicine Angélica Granger P.A.-C. [address] [place] [phone] 04/25/2022 Office Visit Otorhinolaryngology Dex Matta APRN, C.N.P., M.S.N. [address] [place] [phone] 05/08/2022 Appointment Laboratory Medicine Angléica Granger P.A.-C. [address] [place] [phone] 05/08/2022 Clinical Admitting/Central Communication Scheduling 05/10/2022 Appointment Radiology Jeremie Rose M.D. [address] [place] [phone] 05/10/2022 Comprehensive Visit Orthopedic Surgery Warner Graves M.D. [address] [place] [phone] 05/22/2022 Appointment Laboratory Medicine Angélica Granger P.A.-C. [address] [place] [phone] 06/05/2022 Appointment Laboratory Medicine Angélica Granger P.A.-C. [address] [place] [phone] 06/19/2022 Appointment Laboratory Medicine Angélica Granger P.A.-C. [address] [place] [phone] 07/03/2022 Appointment Laboratory Medicine Angélica Granger P.A.-C. [address] [place] [phone] 07/17/2022 Appointment Laboratory Medicine Angélica Granger P.A.-C. [address] [place] [phone] 07/31/2022 Appointment Laboratory Medicine Angélica Granger P.A.-C. [address] [place] [phone] 08/14/2022 Appointment Laboratory Medicine Angélica Granger P.A.-C. [address] [place] [phone] 08/28/2022 Appointment Laboratory Medicine Angélica Granger P.A.-C. 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
--- OUTSIDE RECORDS SUMMARY | 2022-04-13 12:32 | XMS_ITS | Encounter Summary ---
:1955 Author Organization [facility] Address [address] [place] [address] Care Team Providers Name Role Phone Elsewhere, Pcp Primary Care Provider Unavailable Reason for Visit Reason Comments Med Refill Encounter Details Date Type Department Care Team Description 12/21/2018 Refill Division of Nephrology and BuckAna willard Med Refill Hypertension in [place], ( Work) [place] [address] [place] [address] Social History Tobacco Use Types Packs/Day [...] or slept in a jail (including now)? 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 documented in this encounter Plan of Treatment Upcoming Encounters Date Type Specialty Care Team Description 04/24/2022 Appointment Laboratory Medicine Angélica Granger, P.A.-C. [address] [place] [phone] 04/25/2022 Office Visit Otorhinolaryngology Dex Matta, RAMONA, C.N.P., M.S.N. [address] [place] [address] [phone] 05/08/2022 Appointment Laboratory Medicine Angélica Granger, P.A.-C. [address] [place] [address] [phone] 05/08/2022 Clinical Admitting/Central Communication Scheduling 05/10/2022 Appointment Radiology Jeremie Rose M.D. [address] [place] [phone] 05/10/2022 Comprehensive Visit Orthopedic Surgery Wraner Graves M.D. [address] [place] [phone] 05/22/2022 Appointment Laboratory Medicine Angélica Granger P.A.-C. [address] [place] [phone] 06/05/2022 Appointment Laboratory Medicine Angélica Granger P.A.-C. [address] [place] [phone] 06/19/2022 Appointment Laboratory Medicine Angélica Granger P.A.-C. [address] [place] [phone] 07/03/2022 Appointment Laboratory Angélica Royal P.A.-C. [address] [place] [phone] 07/17/2022 Appointment Laboratory Medicine Angélica Granger P.A.-C. [address] [place] [phone] 07/31/2022 Appointment Laboratory Medicine Angélica Granger P.A.-C. [address] [place] [phone] 08/14/2022 Appointment Laboratory Angélica Royal P.A.-C. [address] [place] [phone] 08/28/2022 Appointment Laboratory Medicine Angélica Granger P.A.-C. [address] [place] [phone] documented as of this encounter Visit Diagnoses Not on filedocumented in this encounter Additional Health Concerns Assessment Noted Time PHQ-9 Depression Total Score: 2 08/25/2018 9:45 AM SHUTTLE BUGGY OPERATOR documented as of this encounter Care Teams Hospital Unit Coordinator Relationship Specialty Start Date End Date Elsewhere, Pcp PCP - General Family Medicine 07/29/17 documented as of this encounter
--- OUTSIDE RECORDS SUMMARY | 2022-04-13 12:32 | XMS_ITS | Encounter Summary ---
:1955 Author Organization [facility] Address [address] [place] [address] Care Team Providers Name Role Phone Elsewhere, Pcp Primary Care Provider Unavailable Reason for Visit Reason Comments Med Refill Encounter Details Date Type Department Care Team Description 01/25/2019 Refill Division of Nephrology and Joce Bailey Med Refill Hypertension in [address] [place] [phone] [place] [address] [phone] Social History Tobacco Use Types Packs/Day Years [...] or slept in a fpc (including now)? 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 [address] [place] [phone] 05/08/2022 Appointment Laboratory Medicine Angélica Granger P.A.-CDemetrius [address] [place] [phone] 05/08/2022 Clinical Admitting/Central Communication Scheduling 05/10/2022 Appointment Radiology Jeremie Rose M.D. [address] [place] [phone] 05/10/2022 Comprehensive Visit Orthopedic Surgery Warner Graves M.D. [address] [place] [phone] 05/22/2022 Appointment Laboratory Medicine Angélica Granger P.A.-C. [address] [place] [phone] 06/05/2022 Appointment Laboratory Medicine Angélica Granger P.A.-C. [address] [place] [phone] 06/19/2022 Appointment Laboratory Medicine Angélica Granger P.A.-C. [address] [place] [phone] 07/03/2022 Appointment Laboratory Medicine Angélica Granger P.A.-C. [address] [place] [phone] 07/17/2022 Appointment Laboratory Medicine Angélica Granger P.A.-C. [address] [place] [phone] 07/31/2022 Appointment Laboratory Medicine Angélica Granger P.A.-C. [address] [place] [phone] 08/14/2022 Appointment Laboratory Angélica Royal P.A.-C. [address] [place] [phone] 08/28/2022 Appointment Laboratory Angélica Royal P.A.-C. 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
--- OUTSIDE RECORDS SUMMARY | 2022-04-13 12:33 | XMS_ITS | Encounter Summary ---
:1955 Author Organization [facility] Address [address] [place] [address] Care Team Providers Name Role Phone Elsewhere, Pcp Primary Care Provider Unavailable Reason for Visit Reason Comments Med Refill Encounter Details Date Type Department Care Team Description 2018 Refill Curt Rene [facility], Deidra Stern M.D. Med Refill Transplantation and Clinical Regeneration in [place], [place] [address] [place] [address] Social History Tobacco Use Types Packs/Day [...] or slept in a fci (including now)? 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 - 09/14/2018 9:52 AM CDT Please request Levothyroxine refill from local primary care physician documented in this encounter Plan of Treatment Upcoming Encounters Date Type Specialty Care Team Description 04/24/2022 Appointment Laboratory Medicine Angélica Granger, P.A.-C. [address] [place] [phone] 04/25/2022 Office Visit Otorhinolaryngology Dex Matta APRN, C.N.P., M.S.N. [address] [place] [phone] 05/08/2022 Appointment Laboratory Medicine Angélica Granger, P.A.-C. [address] [place] [phone] 05/08/2022 Clinical Admitting/Central Communication Scheduling 05/10/2022 Appointment Radiology Jeremie Rose M.D. [address] [place] [phone] 05/10/2022 Comprehensive Visit Orthopedic Surgery Warner Graves M.D. [address] [place] [address] [phone] 05/22/2022 Appointment Laboratory Medicine Angélica Granger P.A.-C. [address] [place] [address] [phone] 06/05/2022 Appointment Laboratory Medicine Angélica Granger P.A.-C. [address] [place] [phone] 06/19/2022 Appointment Laboratory Medicine Angélica Granger P.A.-C. [address] [place] [phone] 07/03/2022 Appointment Laboratory Medicine Angélica Granger P.A.-C. [address] [place] [phone] 07/17/2022 Appointment Laboratory Medicine Angélica Granger P.A.-C. [address] [place] [phone] 07/31/2022 Appointment Laboratory Medicine Angélica Granger P.A.-C. [address] [place] [phone] 08/14/2022 Appointment Laboratory Angélica Royal P.A.-C. [address] [place] [phone] 08/28/2022 Appointment Laboratory Angélica Royal P.A.-C. [address] [place] [phone] documented as of this encounter Visit Diagnoses Not on filedocumented in this encounter Additional Health Concerns Assessment Noted Time PHQ-9 Depression Total Score: 2 08/25/2018 9:45 AM BRAND ACTIVATION MANAGER documented as of this encounter Care Teams Founder And Chief Technical Officer Relationship Specialty Start Date End Date Elsewhere, Pcp PCP - General Family Medicine 07/29/17 documented as of this encounter
--- OUTSIDE RECORDS SUMMARY | 2022-04-13 12:33 | XMS_ITS | Encounter Summary ---
:[address] [facility] Address [address] [place] [address] Care Team Providers Name Role Phone Elsewhere, Pcp Primary Care Provider Unavailable Encounter Details Date Type Department Care Team Description 08/27/2018 Orders Only Department of Padmini Hudson Pes Planus Right Orthopedic Surgery in P.[place].-C. (Primary Dx) [place], [place] [address] [place] [address] [address] [place] [phone] Social History Tobacco Use Types Packs/Day Years [...] or slept in a penitentiary (including now)? 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 [address] [place] [phone] 04/25/2022 Office Visit Otorhinolaryngology Dex Matta APRN, C.N.P., M.S.N. [address] [place] [phone] 05/08/2022 Appointment Laboratory Medicine Angélica Granger P.A.-CDemetrius [address] [place] [address] [phone] 05/08/2022 Clinical Admitting/Central Communication Scheduling 05/10/2022 Appointment Radiology Jeremie Rose M.D. [address] [place] [phone] 05/10/2022 Comprehensive Visit Orthopedic Surgery Warner Graves M.D. [address] [place] [address] [phone] 05/22/2022 Appointment Laboratory Medicine Angélica Granger P.A.-CDemetrius [address] [place] [address] [phone] 06/05/2022 Appointment Laboratory Medicine Angélica Granger P.A.-C. [address] [place] [phone] 06/19/2022 Appointment Laboratory Medicine Angélica Granger P.A.-C. [address] [place] [phone] 07/03/2022 Appointment Laboratory Medicine Angélica Granger P.A.-C. [address] [place] [phone] 07/17/2022 Appointment Laboratory Medicine Angélica Granger P.A.-C. [address] [place] [phone] 07/31/2022 Appointment Laboratory Medicine Angélica Granger P.A.-C. [address] [place] [phone] 08/14/2022 Appointment Laboratory Angélica Royal P.A.-C. [address] [place] [phone] 08/28/2022 Appointment Laboratory Angélica Royal P.A.-C. [address] [place] [phone] documented as of this encounter Visit Diagnoses Diagnosis Pes Planus Right - Primary documented in this encounter Additional Health Concerns Assessment Noted Time PHQ-9 Depression Total Score: 2 08/25/2018 9:45 AM STRATEGIC PROCUREMENT MANAGER documented as of this encounter Care Teams Fiber Artist Relationship Specialty Start Date End Date Elsewhere, Pcp PCP - General Family Medicine 07/29/17 documented as of this encounter
--- OUTSIDE RECORDS SUMMARY | 2022-04-13 12:33 | XMS_ITS | Encounter Summary ---
:1955 Author Organization [facility] Address [address] [place] [address] Care Team Providers Name Role Phone Elsewhere, Pcp Primary Care Provider Unavailable Encounter Details Date Type Department Care Team Description 09/04/2018 Clinical Communication Curt Medina, Center for Angeline J, Transplantation and Deshawn GREENE, Clinical Regeneration in [place], [place] [address] [place] [address] [address] [place] [phone] Social History Tobacco Use Types Packs/Day Years [...] slept in a senior living (including now)? 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 [address] [place] [phone] 04/25/2022 Office Visit Otorhinolaryngology Dex Matta APRN, C.N.P., M.S.N. [address] [place] [phone] 05/08/2022 Appointment Laboratory Medicine Angélica Granger P.A.-C. [address] [place] [address] [phone] 05/08/2022 Clinical Admitting/Central Communication Scheduling 05/10/2022 Appointment Radiology Jeremie Rose M.D. [address] [place] [phone] 05/10/2022 Comprehensive Visit Orthopedic Surgery Warner Graves M.D. [address] [place] [address] [phone] 05/22/2022 Appointment Laboratory Medicine Angélica Granger P.A.-C. [address] [place] [address] [phone] 06/05/2022 Appointment Laboratory Medicine Angélica Granger P.A.-C. [address] [place] [phone] 06/19/2022 Appointment Laboratory Medicine Angélica Granger P.A.-C. [address] [place] [phone] 07/03/2022 Appointment Laboratory Medicine Angélica Granger P.A.-C. [address] [place] [phone] 07/17/2022 Appointment Laboratory Medicine Angélica Granger P.A.-C. [address] [place] [phone] 07/31/2022 Appointment Laboratory Medicine Angélica Granger P.A.-C. [address] [place] [phone] 08/14/2022 Appointment Laboratory Medicine Angélica Granger P.A.-C. [address] [place] [phone] 08/28/2022 Appointment Laboratory Medicine Angélica Granger P.A.-C. [address] [place] [phone] documented as of this encounter Results HLA Class II SAB Antibody Screen (09/15/2018 8:15 AM CDT) [facility] Method Time Signature Class II SAB Negative Not Applicable 09/18/2018 [facility] Overall 12:26 PM LABORATORIES - Result CDT [facility] Class II SAB 0 09/18/2018 [facility] cPRA 12:26 PM LABORATORIES - CDT [facility] Comment: ----ADDITIONAL INFORMATION---- This PRA is a [facility] calculated PRA. PRA is based on the antigen frequency of the Tissue Typing patient a nd donor population. ??PRA reflects all antibodie s with a normalized value (MFI) above 300. SAB DRB1 Specificity NONE 09/18/2018 12:26 PM CDT [facility] SAB [id number] Specificity NONE 09/18/2018 12 :26 PM CDT [facility] SAB DQB1 Specificity NONE 09/18/2018 12:26 PM CDT [facility] SAB DPB1 Specificity NONE 09/18/2018 12:26 PM CDT [facility] Comment: ----ADDITIONAL INFORMATION---- Method: [facility] Performing Laboratory CLIA# [id number] Specimen Anatomical Collection Method Collection Time Receive d Time (Source) Location / / Volume Laterality Blood (Blood, 09/15/2018 8:15 AM 09/17/19 19 9:53 Venous) CDT AM CDT Resulting Agency Comment Mailed In Specimen Angeline Hull APRN C.N.Evan., M.S.N. LAB HLA ORDER OSMEL Performing Organization Address City/State/ZIP Code Phon e Number [facility] LABORATORIES - [address] [place], [place] [address] [facility] HLA Class I SAB Antibody Screen (09/15/2018 8:15 AM CDT) [facility] Method Time Signature Class I SAB Positive Not Applicable 09/18/2018 [facility] Overall 11:05 AM LABORATORIES - Result CDT [facility] Class I SAB 7 09/18/2018 [facility] cPRA 11:05 AM LABORATORIES - CDT [facility] Comment: ----ADDITIONAL INFORMATION---- This PRA is a [facility]iss [facility]ing Laboratory calculated PRA. PRA is based on the antigen frequency of the Tissue Typing patient a nd donor population. ??PRA reflects all antibodie s with a normalized value (MFI) above 300. SAB A Specificity see below 09/18/2018 11:05 A M CDT [facility] Comment: 29[302] Format: Serologic equivalent/abbreviated specificity [Normalized Value] shown in decreasing o rder. Note: A serologic equivalent/abbreviated specifi city displayed multiple times could indicate different alleles. SAB B Specificity see below 09/18/2018 11:05 A M CDT [facility] Irena Comment: 54[627] Format: Serologic equivalent/abbreviated specificity [Normalized Value] shown in decreasing o rder. Note: A serologic equivalent/abbreviated specifi city displayed multiple times could indicate different alleles. SAB C Specificity NONE 09/18/2018 11:05 AM CD T [facility] Comment: ----ADDITIONAL INFORMATION---- Method: [facility]inex Performing Laboratory CLIA# [id number] Specimen Anatomical Collection Method Collection Time Receive d Time (Source) Location / / Volume Laterality Blood (Blood, 09/15/2018 8:15 AM 09/17/19 19 9:53 Venous) CDT AM CDT Resulting Agency Comment Mailed In Specimen Angeline Hull APRN, C.N.P., M.S.N. LAB HLA ORDER OSMEL Performing Organization Address City/[facility] Phon e Number [facility] [address] [place] [phone] [facility] HIV-1/-2 Ag and Ab Screen, Plasma (09/15/2018 8:15 AM CDT) P athologist Signature HIV-1/-2 Ag Negative Negative 09/16/2018 [facility] and Ab Screen, 1:43 PM CDT [facility] [place] Comment: Negative result does not rule out HIV in fection. If exposure to HIV infection occurred <14 d ays ago, contact the laboratory to request additi on of HIV-1 RNA detection / quantification test (HIV QN). Specimen Anatomical Collection Method Collection Time Receive d Time (Source) Location / / Volume Laterality Blood (Blood, 09/15/2018 8:15 AM 09/17/19 19 Venous) CDT 12:58 PM CDT Resulting Agency Comment Mailed In Specimen Angeline Hull APRN, C.N.P., M.S.N. LAB MICROBIOL OGY - BLOOD ORDERABLES Performing Organization Address City/[facility]/ZIP [facility] Phon e Number [facility] [address] [place] [address] [facility] documented in this encounter Visit Diagnoses Diagnosis Pretransplant Recipient Evaluation Exam - Primary Chronic Kidney Disease documented in this encounter Additional Health Concerns Assessment Noted Time PHQ-9 Depression Total Score: 2 08/25/2018 9:45 AM SUPERVISOR DETASSELING CREW documented as of this encounter Care Teams Ballistics Tester Relationship Specialty Start Date End Date Elsewhere, Pcp PCP - General Family Medicine 07/29/17 documented as of this encounter
--- OUTSIDE RECORDS SUMMARY | 2022-04-13 12:33 | XMS_ITS | Encounter Summary ---
:1955 Author Organization [facility] Address [address] [place] [address] Care Team Providers Name Role Phone Elsewhere, Pcp Primary Care Provider Unavailable Encounter Details Date Type Department Care Team Description 10/29/2018 Hospital Encounter Department of Jacqueline Soto Liver Laboratory Medicine Edmundo Azevedo, M.S. 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 [address] [place] [phone] 04/25/2022 Office Visit Otorhinolaryngology Dex Matta APRN, C.N.P., M.S.N. [address] [place] [phone] 05/08/2022 Appointment Laboratory Medicine Angélica Granger P.A.-C. [address] [place] [phone] 05/08/2022 Clinical Admitting/Central Communication Scheduling 05/10/2022 Appointment Radiology Jeremie Rose M.D. [address] [place] [phone] 05/10/2022 Comprehensive Visit Orthopedic Surgery Warner Graves M.D. [address] [place] [phone] 05/22/2022 Appointment Laboratory Medicine Angélica Granger P.A.-C. [address] [place] [address] [phone] 06/05/2022 Appointment Laboratory Medicine Angélica Granger P.A.-C. [address] [place] [phone] 06/19/2022 Appointment Laboratory Medicine Angélica Granger P.A.-C. [address] [place] [phone] 07/03/2022 Appointment Laboratory Medicine Angélica Granger P.A.-C. [address] [place] [phone] 07/17/2022 Appointment Laboratory Medicine Angélica Granger P.A.-C. [address] [place] [phone] 07/31/2022 Appointment Laboratory Medicine Angélica Granger P.A.-C. [address] [place] [phone] 08/14/2022 Appointment Laboratory Medicine Anéglica Granger P.A.-C. [address] [place] [phone] 08/28/2022 Appointment Laboratory Medicine Angélica Granger P.A.-C. [address] [place] [phone] documented as of this encounter Procedures Procedure Name Priority Date/Time Associated Comments Diagnosis TACROLIMUS LEVEL, B Routine 01/05/2019 9:15 AM Transplant Live r Results for this CDT (HCC) procedure are i n the results section. documented in this encounter Results (ABNORMAL) Tacrolimus, B (01/05/2019 9:15 AM CDT) athologist Signature Tacrolimus, B 3.0 (L) 5.0-15.0 01/07/2019 (Trough) 2:16 PM CDT ng/mL Comment: ----ADDITIONAL INFORMATION---- Target [...] performa nce characteristics determined by [facility] in a manner consistent with CLIA requirements. This test has not been cleared or approved by the U.S. Mer d and Drug Administration. Specimen Anatomical Collection Method Collection Time Receive d Time (Source) Location / / Volume Laterality Blood (Blood, 01/05/2019 9:15 AM 01/08/20 19 Venous) CDT 11:12 AM CDT Resulting Agency Comment Mailed In Specimen Jacqueline Soto P.A.-C., M.S. LAB BLOOD NON ADD-ON Performing Organization Address City/State/ZIP Code Phon e Number [facility] [address] [place], [place] [address] [facility] documented in this encounter Visit Diagnoses Diagnosis Transplant Liver (HCC) documented in this encounter Additional Health Concerns Assessment Noted Time PHQ-9 Depression Total Score: 2 08/25/2018 9:45 AM SALES FLOOR MANAGER documented as of this encounter Care Teams Plastic Straightening Roll Operator Relationship Specialty Start Date End Date Elsewhere, Pcp PCP - General Family Medicine 07/29/17 documented as of this encounter
--- OUTSIDE RECORDS SUMMARY | 2022-04-13 12:33 | XMS_ITS | Encounter Summary ---
:1955 Author Organization [facility] Address [address] [place] [address] Care Team Providers Name Role Phone Elsewhere, Pcp Primary Care Provider Unavailable Reason for Visit Reason Comments Med Refill Encounter Details Date Type Department Care Team Description 09/14/2018 Refill Curt Rene [facility] Deidra Stern M.D. 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 [address] [place] [phone] 04/25/2022 Office Visit Otorhinolaryngology Dex Matta APRN, C.N.P., M.S.N. [address] [place] [address] [phone] 05/08/2022 Appointment Laboratory Medicine Angélica Granger P.A.-C. [address] [place] [phone] 05/08/2022 Clinical Admitting/Central Communication Scheduling 05/10/2022 Appointment Radiology Jeremie Rose M.D. [address] [place] [phone] 05/10/2022 Comprehensive Visit Orthopedic Surgery Warner Graves M.D. [address] [place] [phone] 05/22/2022 Appointment Laboratory Medicine Angélica Granger P.A.-CDemetrius [address] [place] [address] [phone] 06/05/2022 Appointment Laboratory Medicine Angélica Granger P.A.-C. [address] [place] [phone] 06/19/2022 Appointment Laboratory Medicine Angélica Granger P.A.-C. [address] [place] [phone] 07/03/2022 Appointment Laboratory Medicine Angélica Granger P.A.-C. [address] [place] [phone] 07/17/2022 Appointment Laboratory Medicine Angélica Granger P.A.-C. [address] [place] [address] [phone] 07/31/2022 Appointment Laboratory Medicine Angélica Granger P.A.-C. [address] [place] [address] [phone] 08/14/2022 Appointment Laboratory Medicine Angélica Granger P.A.-C. [address] [place] [address] [phone] 08/28/2022 Appointment Laboratory Medicine Angélica Granger P.A.-C. [address] [place] [address] [phone] documented as of this encounter Visit Diagnoses Not on filedocumented in this encounter Additional Health Concerns Assessment Noted Time PHQ-9 Depression Total Score: 2 08/25/2018 9:45 AM FRUIT TRIMMER documented as of this encounter Care Teams Fountain Supervisor Relationship Specialty Start Date End Date Elsewhere, Pcp PCP - General Family Medicine 07/29/17 documented as of this encounter
--- OUTSIDE RECORDS SUMMARY | 2022-04-13 12:33 | XMS_ITS | Encounter Summary ---
:1955 Author Organization [facility] Address [address] [place] [address] Care Team Providers Name Role Phone Elsewhere, Pcp Primary Care Provider Unavailable Reason for Visit Reason Comments Med Refill Encounter Details Date Type Department Care Team Description [facility] Med Refill Transplantation and Clinical Regeneration in [place], [place] [address] [place] [address] Social History Tobacco Use Types Packs/Day [...] or slept in a detention (including now)? Sex Assigned at Date Recorded Male 05/16/2020 4:27 PM INSIDE SALES documented as of this encounter Plan of Treatment Upcoming Encounters Date Type Specialty Care Team Description 04/24/2022 Appointment Laboratory Medicine Angélica Gragner P.A.-C. [address] [place] [phone] 04/25/2022 Office Visit Otorhinolaryngology Dex Matta APRN, C.N.P., M.S.N. [address] [place] [address] [phone] 05/08/2022 Appointment Laboratory Medicine Angélica Granger P.A.-CDemetrius [address] [place] [address] [phone] 05/08/2022 Clinical Admitting/Central Communication Scheduling 05/10/2022 Appointment Radiology Jeremie Rose M.D. [address] [place] [phone] 05/10/2022 Comprehensive Visit Orthopedic Surgery Warner Graves M.D. [address] [place] [phone] 05/22/2022 Appointment Laboratory Medicine Angélica Granger P.A.-CDemetrius [address] [place] [address] [phone] 06/05/2022 Appointment Laboratory Medicine Angélica Granger P.A.-C. [address] [place] [phone] 06/19/2022 Appointment Laboratory Medicine Angélica Granger P.A.-C. [address] [place] [phone] 07/03/2022 Appointment Laboratory Medicine Angélica Granger P.A.-C. [address] [place] [phone] 07/17/2022 Appointment Laboratory Medicine Angélica Granger P.A.-C. [address] [place] [phone] 07/31/2022 Appointment Laboratory Medicine Angélica Granger P.A.-C. [address] [place] [phone] 08/14/2022 Appointment Laboratory Medicine Angélica Granger P.A.-C. [address] [place] [phone] 08/28/2022 Appointment Laboratory Medicine Angélica Granger P.A.-C. [address] [place] [phone] documented as of this encounter Visit Diagnoses Diagnosis Transplant Liver (HCC) documented in this encounter Additional Health Concerns Assessment Noted Time PHQ-9 Depression Total Score: 2 08/25/2018 9:45 AM INSIDE SALES documented as of this encounter Care Teams Clamp Truck Driver Relationship Specialty Start Date End Date Elsewhere, Pcp PCP - General Family Medicine 07/29/17 documented as of this encounter
--- OUTSIDE RECORDS SUMMARY | 2022-04-13 12:33 | XMS_ITS | Encounter Summary ---
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 Forwarded to nurses. documented in this encounter Plan of Treatment Upcoming Encounters Date Type Specialty Care Team Description 04/24/2022 Appointment Laboratory Medicine Angélica Granger, P.A.-CDemetrius [address] [place] [phone] 04/25/2022 Office Visit Otorhinolaryngology Dex Matta APRN, C.N.P., M.S.N. [address] [place] [phone] 05/08/2022 Appointment Laboratory Medicine Angélica Granger, P.A.-CDemetrius [address] [place] [phone] 05/08/2022 Clinical Admitting/Central Communication Scheduling 05/10/2022 Appointment Radiology Jeremie Rose M.D. [address] [place] [phone] 05/10/2022 Comprehensive Visit Orthopedic Surgery Warner Graves M.D. [address] [place] [address] [phone] 05/22/2022 Appointment Laboratory Medicine Angélica Granger P.A.-C. [address] [place] [address] [phone] 06/05/2022 Appointment Laboratory Medicine Angélica Granger P.A.-C. [address] [place] [phone] 06/19/2022 Appointment Laboratory Medicine Angélica Granger P.A.-C. [address] [place] [phone] 07/03/2022 Appointment Laboratory Medicine Angélica Granger P.A.-C. [address] [place] [phone] 07/17/2022 Appointment Laboratory Medicine Angélica Granger P.A.-C. [address] [place] [phone] 07/31/2022 Appointment Laboratory Medicine Angélica Granger P.A.-C. [address] [place] [phone] 08/14/2022 Appointment Laboratory Angélica Royal P.A.-C. [address] [place] [phone] 08/28/2022 Appointment Laboratory Angélica Royal P.A.-C. [address] [place] [address] [phone] documented as of this encounter Visit Diagnoses Not on filedocumented in this encounter Additional Health Concerns Assessment Noted Time PHQ-9 Depression Total Score: 2 08/25/2018 9:45 AM VETERINARY TECHNICIAN documented as of this encounter Care Teams Teenage Babysitter Relationship Specialty Start Date End Date Elsewhere, Pcp PCP - General Family Medicine 07/29/17 documented as of this encounter
--- OUTSIDE RECORDS SUMMARY | 2022-04-13 12:33 | XMS_ITS | Encounter Summary ---
:1955 Author Organization [facility] Address [address] [place] [address] Care Team Providers Name Role Phone Elsewhere, Pcp Primary Care Provider Unavailable Reason for Visit Reason Comments Pain Pain Appointment Request (Routine) - Closed Specialty Diagnoses / Procedures Referred By Contact Refer red To Contact Orthopedic Surgery Referral ID Status Reason Start Date Expiration Date Visits Requ ested Visits Authorized [id number] Closed 08/17/2018 08/17/2019 1 1 Encounter Details Date Type Department Care Team Description 08/26/2018 Comprehensive Visit Department of Warner Graves Pain Ankle Right (Primary Dx); Orthopedic Surgery Sada Ayoub Pes Planus Right in [place], [address] [place] [address] [place] [phone] [place], [place] [phone] (Work) [phone] Social History Tobacco Use Types Packs/Day Years [...] at Date Recorded Male 05/16/2020 4:27 PM BOARD WINDER documented as of this encounter Consult Notes Warner Graves M.D. - 08/26/2018 9:30 AM CST REFERRAL: No ref. provider found CHIEF COMPLAINT: Right medial ankle pain HISTORY OF PRESENT ILLNESS: Bruce Singh is a 62 y.o. male who presents today with a chief complaint of right medial anklepain. The pain is directly over the medial malleolus as he points. This pain is worse with activity and pressure and better with rest. Of note, over the last few years he has noticed a progressive right flatfoot deformity. He feels like the arch is collapsing more. It is difficult to tell whether not the collapsing arch is aggravating his medial malleolus pain. He does try inserts to support the arch. He feels like this may help offload the medial malleolus some. No pain laterally. Of note he has a severely arthritic left ankle. He has minimal pain with this. He does get swelling with the left ankle. His medical history is significant for history of liver transplant (CellCept, prednisone, Prograf), chronic kidney disease with renal artery stenosis. He is on the renal transplant list as well. No past medical history on file. Past Surgical History: Procedure Laterality Date ??? [...] HERNIA REPAIR N/A 09/03/2013 >Umbilical hernia repair. Current Outpatient Prescriptions Medication Sig Dispense Refill ??? acetaminophen (TYLENOL) [...] (LIPITOR) 10 mg tablet Take 1 tablet by mouth daily. ??? CALCIUM-MAGNESIUM ORAL Take 2 capsules by mouth 2 (two) times a day. 400mg calcium twice daily ??? carvedilol (COREG) 6.25 mg tablet Take 1 tablet by mouth 2 (two) times a day. ??? cholecalciferol (VITAMIN D3) 2,000 Unit tablet Take 1 tablet by mouth daily. ??? coenzyme Q10 (CO Q-10) 200 mg capsule Take 1 capsule by mouth daily. ??? doxazosin (CARDURA) 8 mg tablet Take 1 tablet (8 mg total) by mouth daily. Take at night 90 tablet 3 ??? fluticasone (FLONASE ALLERGY [...] LEVOTHROID) 25 mcg tablet Take 1 tablet by mouth daily. Take in the a.m. 30 minutes before breakfast. Maintenance. ??? multivitamin tablet Take 1 tablet by mouth daily. Maintenance ??? mycophenolate (CELLCEPT) 500 mg tablet Take 1 tablet (500 mg total) by mouth 2 (two) times a day. z94.4 liver transplant 180 tablet 2 ??? predniSONE (DELTASONE) 5 mg tablet TAKE 1 TABLET BY MOUTH DAILY 90 tablet 3 ??? tacrolimus (PROGRAF) 0.5 mg capsule TAKE 2 CAPSULES BY MOUTH EVERY 12 HOURS 360 capsule 3 ??? torsemide (DEMADEX) 10 mg tablet Take 3 tablets by mouth daily. Restarted on 03-26-17. Maintenance. ??? traZODone (DESYREL) 100 mg tablet Take 1 tablet by mouth at bedtime as needed for sleep. Maintenance Social History Social History ??? Marital status: Single Spouse name: N/A ??? Number of children: N/A ??? Years of education: N/A Occupational History ??? Not on file. Social History Main Topics ??? Smoking status: Never Smoker ??? Smokeless tobacco: Never Used ??? Alcohol use No ??? Drug use: Unknown ??? Sexual activity: Defer Other Topics Concern ??? Not on file Social History Narrative ??? No narrative on file PHYSICAL EXAMINATION: ?? General: Awake and alert. No acute distress. ?? Inspection: - ?? Gait: He walks with a slow antalgic gait. ?? Skin: The skin is intact. He has significant swelling diffusely about the left ankle. ?? Alignment: He has significant pes planovalgus on the right. Hindfoot alignment is in at least 10?? valgus on the right and about 5?? valgus on the left. ?? Pulses: He has 1+ dorsalis pedis pulses bilaterally. Diminished posterior tibialis pulses bilaterally. ?? ROM: Ankle range of motion is dorsiflexion neutral bilaterally and plantar flexion 30?? on the right and 5?? on left. He has limited hindfoot motion, right worse than left. ?? Strength: 1/5 strength with inversion on the right otherwise 5/5 strength throughout. ?? Sensation: Sensation is intact to light touch in the deep peroneal, superficial peroneal, tibial,sural, and saphenous nerve distributions bilaterally. ?? Tenderness: Significant tenderness to palpation directly over the right medial malleolus. No tenderness about the hindfoot joints on the right or the posterior tibial tendon. Minimal tenderness overthe left ankle joint. ?? DIAGNOSTIC STUDIES: ?? Labs: - ?? Imaging: Weight-bearing x-rays of the right foot and ankle were obtained today and reviewed. He has significant pes planovalgus with hindfoot and midfoot arthritis. He has significant arthritic changes of the first MTP joint. He has severe arthritic changes of the left ankle joint. ASSESSMENT & PLAN: 1. Right hallux rigidus 2. Right adult acquired flatfoot with hindfoot and midfoot arthritis as well as medial malleolus pain (possible stress reaction) 3. Left ankle arthritis, minimally symptomatic; and hindfoot arthritis The biggest issue for the patient is the right medial malleolus pain. In addition, he is noticing a progressive flatfoot deformity. Interestingly, the hindfoot does not cause him pain. Also the left ankle does not cause him much pain. For the right medial ankle pain, this is not the usual situation. Iwould like to obtain an MRI particularly to look at the medial malleolus to rule out any stress fracture. I will see him back afterwards to go over the results. I did offer to provide him for a boot for now to protect the ankle. He wants to hold off on that for now. All questions were answered. Warner Graves M.D. D WINDER documented in this encounter Plan of Treatment Upcoming Encounters Date Type Specialty Care Team Description 04/24/2022 Appointment Laboratory Medicine Angélica Granger P.A.-C. [address] [place] [phone] 04/25/2022 Office Visit Otorhinolaryngology Dex Matta APRN, C.N.P., M.S.N. [address] [place] [phone] 05/08/2022 Appointment Laboratory Medicine Angélica Granger P.A.-C. [address] [place] [phone] 05/08/2022 Clinical Admitting/Central Communication Scheduling 05/10/2022 Appointment Radiology Jeremie Rose M.D. [address] [place] [phone] 05/10/2022 Comprehensive Visit Orthopedic Surgery Warner Graves M.D. [address] [place] [phone] 05/22/2022 Appointment Laboratory Medicine Angélica Granger P.A.-C. [address] [place] [phone] 06/05/2022 Appointment Laboratory Medicine Angélica Granger P.A.-C. [address] [place] [phone] 06/19/2022 Appointment Laboratory Medicine Angélica Granger P.A.-C. [address] [place] [phone] 07/03/2022 Appointment Laboratory Medicine Angélica Granger P.A.-C. [address] [place] [phone] 07/17/2022 Appointment Laboratory Medicine Angélica Granger P.A.-C. [address] [place] [phone] 07/31/2022 Appointment Laboratory Medicine Angélica Granger P.A.-C. [address] [place] [phone] 08/14/2022 Appointment Laboratory Medicine Angélica Granger P.A.-C. [address] [place] [address] [phone] 08/28/2022 Appointment Laboratory Medicine Angélica Granger P.A.-C. [address] [place] [phone] documented as of this encounter Visit Diagnoses Diagnosis Pain Ankle Right - Primary Pes Planus Right documented in this encounter Additional Health Concerns Assessment Noted Time PHQ-9 Depression Total Score: 2 08/25/2018 9:45 AM BOARD WINDER documented as of this encounter Care Teams Injection Molder Relationship Specialty Start Date End Date Elsewhere, Pcp PCP - General Family Medicine 07/29/17 documented as of this encounter
--- OUTSIDE RECORDS SUMMARY | 2022-04-13 12:33 | XMS_ITS | Encounter Summary ---
:1955 Author Organization [facility] Address [address] [place] [address] Care Team Providers Name Role Phone Elsewhere, Pcp Primary Care Provider Unavailable Reason for Visit Transplant (Routine) - Closed Specialty Diagnoses / Procedures Referred By Contact Refer red To Contact Transplant Surgery / Diagnoses Transplant Liver (HCC) Medication Therapy Custodial Not Anticoagulant Anatoliy Bernardo [facility] Transplant M.D. 200 [place] [address] Referral ID Status Reason Start Date Expiration Date Visits Requ ested Visits Authorized [id number] Closed 07/08/2018 07/08/2019 1 1 Encounter Details Date Type Department Care Team Description 08/26/2018 Comprehensive Visit Department of [place] is Actinic (Primary Dx); Dermatology in [facility], Transplant Li gerry (HCC); WingerRAMONA, C.N.P., Medication The rap Custodial Not Anticoagulant [place] D.N.P. [address] [place] [address] [place] [phone] Social History Tobacco Use Types Packs/Day Years [...] 12/15/2021 organizations such as taoist groups, unions, fraDigestive Disease Associates or athletic groups, or school groups? How [...] at Date Recorded Male 05/16/2020 4:27 PM INTEGRATED MARKETING SPECIALIST documented as of this encounter Consult Notes Claudette Hills APRN, C.N.P., M.S.N. - 08/26/2018 8:20 AM CST REFERRED BY Anatoliy Bernardo M.D. CHIEF COMPLAINT/REASON FOR VISIT Skin lesion HISTORY OF PRESENT ILLNESS Mr. Bruce Singh is a pleasant 62 y.o. male who presents today for evaluation of a skin lesion. The patient was last evaluated in April of 2018. At that time a pre cancerous lesion was treatedon his scalp. The patient states that it has not fully resolved. The patient is on immunosuppressivetherapy for a liver transplant. No personal history of skin cancer. Allergies Allergen Reactions ??? Cefixime Diarrhea ??? Ciprofloxacin Other (see comments) Tendon pain ??? Citalopram Other (see comments) michell ??? Erythromycin Base Other (see comments) Due to medications ??? Olanzapine Other (see comments) Joint pain ??? Quetiapine Edema Muscle pain and swelling PAST MEDICAL HISTORY Negative for skin cancer FAMILY HISTORY Negative for skin cancer PHYSICAL EXAM General: Awake, alert, in no acute distress, and with appropriate affect. Skin: I have examined the scalp per patient request. Iverson skin type II. There is evidence of dermatoheliosis in sun-exposed areas. On the vertex scalp is a red macule with overlying adherent scale. IMPRESSION/REPORT/PLAN #1 Dermatoheliosis #2 Immunosuppressed state #3 Actinic keratosis CONSENT Discussed the risks, benefits, alternatives, and [...] patient/guardian of patient expressed understanding of thecontent. GRATED MARKETING SPECIALIST documented in this encounter Plan of Treatment Upcoming Encounters Date Type Specialty Care Team Description 04/24/2022 Appointment Laboratory Medicine Angélica Granger P.A.-C. [address] [place] [phone] 04/25/2022 Office Visit Otorhinolaryngology Dex Matta APRN C.N.Saeed, M.S.N. [address] [place] [phone] 05/08/2022 Appointment Laboratory Medicine Angélica Granger P.A.-C. [address] [place] [phone] 05/08/2022 Clinical Admitting/Central Communication Scheduling 05/10/2022 Appointment Radiology Jeremie Rose M.D. [address] [place] [phone] 05/10/2022 Comprehensive Visit Orthopedic Surgery Warner Graves M.D. [address] [place] [phone] 05/22/2022 Appointment Laboratory Medicine Angélica Granger P.A.-C. [address] [place] [phone] 06/05/2022 Appointment Laboratory Medicine Angélica Granger P.A.-C. [address] [place] [phone] 06/19/2022 Appointment Laboratory Medicine Angélica Granger P.A.-C. [address] [place] [phone] 07/03/2022 Appointment Laboratory Medicine Agnélica Granger P.A.-C. [address] [place] [phone] 07/17/2022 Appointment Laboratory Medicine Angélica Granger P.A.-C. [address] [place] [phone] 07/31/2022 Appointment Laboratory Medicine Angélica Granger P.A.-C. [address] [place] [phone] 08/14/2022 Appointment Laboratory Medicine Angélica Granger P.A.-C. [address] [place] [phone] 08/28/2022 Appointment Laboratory Medicine Angélica Granger P.A.-C. [address] [place] [phone] documented as of this encounter Visit Diagnoses Diagnosis Keratosis Actinic - Primary Transplant Liver (HCC) Medication Therapy Manager Of Recruiting Not Anticoa gulant documented in this encounter Additional Health Concerns Assessment Noted Time PHQ-9 Depression Total Score: 2 08/25/2018 9:45 AM INTEGRATED MARKETING SPECIALIST documented as of this encounter Care Teams Account Underwriter Relationship Specialty Start Date End Date Elsewhere, Pcp PCP - General Family Medicine 07/29/17 documented as of this encounter
--- OUTSIDE RECORDS SUMMARY | 2022-04-13 12:33 | XMS_ITS | Encounter Summary ---
:1955 Author Organization [facility] Address [address] [place] [address] Care Team Providers Name Role Phone Elsewhere, Pcp Primary Care Provider Unavailable Encounter Details Date Type Department Care Team Description 09/15/2018 Clinical Communication Division of Tiffanie Wan [facility] in [place], [place] [address] [place] [address] [address] [place] [phone] Social History Tobacco Use Types Packs/Day Years [...] at Date Recorded Male 05/16/2020 4:27 PM PARTS CHASER documented as of this encounter Miscellaneous Notes Telephone Encounter - Roshan Grace R.N., C.C.T.CDemetrius - 09/15/2018 9:20 AM CDT Called pharmacy. They will forward request to PCP. Telephone Encounter - Santana Viveros - 09/15/2018 8:43 AM CDT Patient called to relay that his pharmacy in [facility] is having issues running his Levothyroxine; it is listed in his chart as a historical med. The pharmacy's contact info is: P.) [phone] F.) [phone] documented in this encounter Plan of Treatment Upcoming Encounters Date Type Specialty Care Team Description 04/24/2022 Appointment Laboratory Medicine Angélica Granger P.A.-C. [address] [place] [phone] 04/25/2022 Office Visit Otorhinolaryngology Dex Matta APRN, C.N.P., M.S.N. [address] [place] [phone] 05/08/2022 Appointment Laboratory Medicine Angélica Granger P.A.-C. [address] [place] [phone] 05/08/2022 Clinical Admitting/Central Communication Scheduling 05/10/2022 Appointment Radiology Jeremie Rose M.D. [address] [place] [phone] 05/10/2022 Comprehensive Visit Orthopedic Surgery Warner Graves M.D. [address] [place] [phone] 05/22/2022 Appointment Laboratory Medicine Angélica Granger P.A.-C. [address] [place] [phone] 06/05/2022 Appointment Laboratory Medicine Angélica Granger P.A.-C. [address] [place] [phone] 06/19/2022 Appointment Laboratory Medicine Angélica Granger P.A.-C. [address] [place] [phone] 07/03/2022 Appointment Laboratory Medicine Angélica Granger P.A.-C. [address] [place] [phone] 07/17/2022 Appointment Laboratory Medicine Angélica Granger P.A.-C. [address] [place] [phone] 07/31/2022 Appointment Laboratory Medicine Angélica Granger P.A.-C. [address] [place] [phone] 08/14/2022 Appointment Laboratory Medicine Angélica Granger P.A.-C. [address] [place] [address] 08/28/2022 Appointment Laboratory Medicine Angélica Granger P.A.-C. [address] [place] [address] documented as of this encounter Visit Diagnoses Not on filedocumented in this encounter Additional Health Concerns Assessment Noted Time PHQ-9 Depression Total Score: 2 08/25/2018 9:45 AM PARTS CHASER documented as of this encounter Care Teams Digital Marketing Project Manager Relationship Specialty Start Date End Date Elsewhere, Pcp PCP - General Family Medicine 07/29/17 documented as of this encounter
--- OUTSIDE RECORDS SUMMARY | 2022-04-13 12:33 | XMS_ITS | Encounter Summary ---
:1955 Author Organization [facility] Address [address] [place] [address] Care Team Providers Name Role Phone Elsewhere, Pcp Primary Care Provider Unavailable Encounter Details Date Type Department Care Team Description 10/29/2018 Hospital Encounter Department of Jacqueline Soto Liver Laboratory Medicine Edmundo Azevedo, M.S. 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 [address] [place] [address] 04/25/2022 Office Visit Otorhinolaryngology Dex Matta APRN, C.N.P., M.S.N. [address] [place] [phone] 05/08/2022 Appointment Laboratory Medicine Angélica Granger P.A.-C. [address] [place] [phone] 05/08/2022 Clinical Admitting/Central Communication Scheduling 05/10/2022 Appointment Radiology Jeremie Rose M.D. [address] [place] [phone] 05/10/2022 Comprehensive Visit Orthopedic Surgery Warner Graves M.D. [address] [place] [phone] 05/22/2022 Appointment Laboratory Medicine Angélica Granger P.A.-C. [address] [place] [phone] 06/05/2022 Appointment Laboratory Medicine Angélica Granger P.A.-C. [address] [place] [phone] 06/19/2022 Appointment Laboratory Medicine Angélica Granger P.A.-C. [address] [place] [phone] 07/03/2022 Appointment Laboratory Medicine Angélica Granger P.A.-C. [address] [place] [phone] 07/17/2022 Appointment Laboratory Medicine Angélica Granger P.A.-C. [address] [place] [phone] 07/31/2022 Appointment Laboratory Medicine Angélica Granger P.A.-C. [address] [place] [phone] 08/14/2022 Appointment Laboratory Medicine Angélica Granger P.A.-C. [address] [place] [phone] 08/28/2022 Appointment Laboratory Medicine Angélica Granger P.A.-C. [address] [place] [phone] documented as of this encounter Procedures Procedure Name Priority Date/Time Associated Comments Diagnosis TACROLIMUS LEVEL, B Routine 03/15/2019 8:45 AM Transplant Live r Results for this CDT (HCC) procedure are i n the results section. documented in this encounter Results (ABNORMAL) Tacrolimus, B (03/15/2019 8:45 AM CDT) athologist Signature Tacrolimus, B 1.8 (L) 5.0-15.0 03/17/2019 (Trough) 7:49 PM CDT ng/mL Comment: ----ADDITIONAL INFORMATION---- Target [...] Location / / Volume Laterality Blood (Blood, 03/15/2019 8:45 AM 03/17/20 19 Venous) CDT 10:20 AM CDT Resulting Agency Comment Mailed In Specimen Jacqueline Soto P.A.-C., M.S. LAB BLOOD NON ADD-ON Performing Organization Address City/State/ZIP Code Phon e Number [facility] [address] [place], [place] [address] [facility] documented in this encounter Visit Diagnoses Diagnosis Transplant Liver (HCC) documented in this encounter Additional Health Concerns Assessment Noted Time PHQ-9 Depression Total Score: 2 08/25/2018 9:45 AM ALTITUDE CHAMBER TECHNICIAN documented as of this encounter Care Teams Claims Manager Relationship Specialty Start Date End Date Elsewhere, Pcp PCP - General Family Medicine 07/29/17 documented as of this encounter
--- OUTSIDE RECORDS SUMMARY | 2022-04-13 12:33 | XMS_ITS | Encounter Summary ---
:1955 Author Organization [facility] Address [address] [place] [address] Care Team Providers Name Role Phone Elsewhere, Pcp Primary Care Provider Unavailable Encounter Details Date Type Department Care Team Description 08/26/2018 Clinical Communication Angélica Ching [place] for J, P.A.-C. Transplantation and [address] [place] [address] Clinical [facility] in [place], [place] [address] [place] [address] [place] [address] (Work) [phone] Social History Tobacco Use Types Packs/Day Years [...] at Date Recorded Male 05/16/2020 4:27 PM BRUSH CLEARER SURVEYING documented as 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 [address] [place] [phone] 04/25/2022 Office Visit Otorhinolaryngology Dex Matta, RAMONA, C.N.P., M.S.N. [address] [place] [phone] 05/08/2022 Appointment Laboratory Medicine Angélica Granger P.A.-CDemetrius [address] [place] [phone] 05/08/2022 Clinical Admitting/Central Communication Scheduling 05/10/2022 Appointment Radiology Jeremie Rose M.D. [address] [place] [phone] 05/10/2022 Comprehensive Visit Orthopedic Surgery Warner Graves M.D. [address] [place] [phone] 05/22/2022 Appointment Laboratory Medicine Angélica Granger P.A.-C. [address] [place] [address] [phone] 06/05/2022 Appointment Laboratory Medicine Angélica Granger P.A.-C. [address] [place] [phone] 06/19/2022 Appointment Laboratory Medicine Angélica Granger P.A.-C. [address] [place] [phone] 07/03/2022 Appointment Laboratory Medicine Angélica Granger P.A.-C. [address] [place] [phone] 07/17/2022 Appointment Laboratory Medicine Angélica Granger P.A.-C. [address] [place] [phone] 07/31/2022 Appointment Laboratory Medicine Angélica Granger P.A.-C. [address] [place] [phone] 08/14/2022 Appointment Laboratory Medicine Angélica Granger P.A.-C. [address] [place] [phone] 08/28/2022 Appointment Laboratory Angélica Royal P.A.-C. [address] [place] [phone] documented as of this encounter Visit Diagnoses Not on filedocumented in this encounter Additional Health Concerns Assessment Noted Time PHQ-9 Depression Total Score: 2 08/25/2018 9:45 AM BRUSH CLEARER SURVEYING documented as of this encounter Care Teams Post Hole Digger Relationship Specialty Start Date End Date Elsewhere, Pcp PCP - General Family Medicine 07/29/17 documented as of this encounter
--- OUTSIDE RECORDS SUMMARY | 2022-04-13 12:33 | XMS_ITS | Encounter Summary ---
:1955 Author Organization [facility] Address [address] [place] [address] Care Team Providers Name Role Phone Elsewhere, Pcp Primary Care Provider Unavailable Encounter Details Date Type Department Care Team Description 09/02/2018 Clinical Communication Angélica Ching [place] for J, P.A.-C. 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 [address] [place] [phone] 04/25/2022 Office Visit Otorhinolaryngology Dex Matta, RAMONA, C.N.P., M.S.N. [address] [place] [phone] 05/08/2022 Appointment Laboratory Medicine Angélica Granger P.A.-CDemetrius [address] [place] [address] [phone] 05/08/2022 Clinical Admitting/Central Communication Scheduling 05/10/2022 Appointment Radiology Jeremie Rose M.D. [address] [place] [phone] 05/10/2022 Comprehensive Visit Orthopedic Surgery Warner Graves M.D. [address] [place] [address] [phone] 05/22/2022 Appointment Laboratory Medicine Angélica Granger P.A.-C. [address] [place] [address] [phone] 06/05/2022 Appointment Laboratory Medicine Angélica Granger P.A.-C. [address] [place] [phone] 06/19/2022 Appointment Laboratory Medicine Angélica Granger P.A.-C. [address] [place] [phone] 07/03/2022 Appointment Laboratory Medicine Angélica Granger P.A.-C. [address] [place] [phone] 07/17/2022 Appointment Laboratory Medicine Angélica Granger P.A.-C. [address] [place] [phone] 07/31/2022 Appointment Laboratory Medicine Angélica Granger P.A.-C. [address] [place] [phone] 08/14/2022 Appointment Laboratory Medicine Angélica Granger P.A.-C. [address] [place] [phone] 08/28/2022 Appointment Laboratory Medicine Angélica Granger P.A.-C. [address] [place] [phone] documented as of this encounter Results (ABNORMAL) Tacrolimus, B (11/02/2018 8:40 AM CDT) athologist Signature Tacrolimus, B 2.6 (L) 5.0-15.0 11/03/2018 [facility] (Trough) 3:[address] ng/mL [facility] Comment: ----ADDITIONAL INFORMATION---- Target steady-state trough concentration s vary depending on the type of transplant, concomitant immunosuppressio n, clinical/institutional protocols, and time post-transplant. Results should be interpreted in conjunction with this clinical information and any physic al signs/symptoms of rejection/toxicity. Testing performed by Liquid Chromatograp hy-Tandem Mass Spectrometry (LC-MS/MS). This test was developed and its performa nce characteristics determined by [facility] in a manner consistent with CLIA requirements. This test has not been cleared or approved by the U.S. Mer d and Drug Administration. Specimen Anatomical Collection Method Collection Time Receive d Time (Source) Location / / Volume Laterality Blood (Blood, 11/02/2018 8:40 AM 11/04/19 19 Venous) CDT 10:38 AM CDT Resulting Agency Comment Mailed In Specimen Angélica Granger P.A.-C. 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
--- OUTSIDE RECORDS SUMMARY | 2022-04-13 12:33 | XMS_ITS | Encounter Summary ---
:1955 Author Organization [facility] Address [address] [place] [address] Care Team Providers Name Role Phone Elsewhere, Pcp Primary Care Provider Unavailable Reason for Visit Reason Comments Med Refill Encounter Details Date Type Department Care Team Description 09/23/2018 Refill Division of Nephrology and Ursula Rey, R.N. 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 - 09/23/2018 4:47 PM CDT Prescription forwarded to provider for approval. Outside RN protocol due to historical entry. documented in this encounter Plan of Treatment Upcoming Encounters Date Type Specialty Care Team Description 04/24/2022 Appointment Laboratory Medicine Angélica Granger, P.A.-CDemetrius [address] [place] [phone] 04/25/2022 Office Visit Otorhinolaryngology Dex Matta APRN, C.N.P., M.S.N. [address] [place] [phone] 05/08/2022 Appointment Laboratory Medicine Angélica Granger P.A.-CDemetrius [address] [place] [phone] 05/08/2022 Clinical Admitting/Central Communication Scheduling 05/10/2022 Appointment Radiology Jeremie Rose M.D. [address] [place] [phone] 05/10/2022 Comprehensive Visit Orthopedic Surgery Warner Graves M.D. [address] [place] [phone] 05/22/2022 Appointment Laboratory Medicine Angélica Granger P.A.-C. [address] [place] [phone] 06/05/2022 Appointment Laboratory Medicine Angélica Granger P.A.-C. [address] [place] [phone] 06/19/2022 Appointment Laboratory Medicine Angélica Granger P.A.-C. [address] [place] [phone] 07/03/2022 Appointment Laboratory Medicine Angélica Granger P.A.-C. [address] [place] [phone] 07/17/2022 Appointment Laboratory Medicine Angélica Granger P.A.-C. [address] [place] [phone] 07/31/2022 Appointment Laboratory Medicine Angélica Granger P.A.-C. [address] [place] [phone] 08/14/2022 Appointment Laboratory Medicine Angélica Granger P.A.-C. [address] [place] [phone] 08/28/2022 Appointment Laboratory Medicine Angélica Granger P.A.-C. 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
--- OUTSIDE RECORDS SUMMARY | 2022-04-13 12:33 | XMS_ITS | Encounter Summary ---
:1955 Author Organization [facility] Address [address] [place] [address] Care Team Providers Name Role Phone Elsewhere, Pcp Primary Care Provider Unavailable Encounter Details Date Type Department Care Team Description 09/03/2018 Hospital Encounter Department of Angélica Granger Liver Laboratory Medicine Edmundo Stern (HCC) and Pathology, [address] [place] [address] in [place], [place] [phone] [place] [address] [place], [place] (Work) [phone] [phone] Social History Tobacco Use Types Packs/Day Years [...] or slept in a custodial (including now)? 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 CALCIUM-MAGNESIUM ORAL Take 2 capsules by 0 08/1905/04/2020 mouth 2 (two) times a day. 400mg calcium twice daily carvedilol (COREG) 6.25 Take 1 tablet by 0 201709/23/2018 mg tablet mouth 2 (two) times a day. cholecalciferol [...] MOUTH TWICE DAILY levothyroxine Take 1 tablet by 0 08/07/201709/14 (SYNTHROID, LEVOTHROID) mouth daily. Take 25 mcg tablet in the a.m. 30 minutes before breakfast. Maintenance. multivitamin tablet Take 1 tablet by 0 06/18/2013 10/12/2021 mouth daily. Maintenance mycophenolate (CELLCEPT) Take 1 tablet (500 180 tablet 2 2018 500 mg mg total) by mouth tabletIndications: 2 (two) times a Transplant Liver (HCC) day. z94.4 liver transplant predniSONE (DELTASONE) 5 TAKE 1 TABLET BY [...] Laboratory Medicine Angélica Granger P.A.-C. [address] [place] [address] 04/25/2022 Office Visit Otorhinolaryngology Dex Matta APRN, C.N.P., M.S.N. [address] [place] [phone] 05/08/2022 Appointment Laboratory Medicine Angélica Granger P.A.-C. [address] [place] [phone] 05/08/2022 Clinical Admitting/Central Communication Scheduling 05/10/2022 Appointment Radiology Jeremie Rose M.D. [address] [place] [phone] 05/10/2022 Comprehensive Visit Orthopedic Surgery Wraner Graves M.D. [address] [place] [phone] 05/22/2022 Appointment Laboratory Medicine Angélica Granger P.A.-C. [address] [place] [phone] 06/05/2022 Appointment Laboratory Medicine Angélica Granger P.A.-C. [address] [place] [phone] 06/19/2022 Appointment Laboratory Medicine Angélica Granger P.A.-C. [address] [place] [phone] 07/03/2022 Appointment Laboratory Medicine Angélica Granger P.A.-C. [address] [place] [phone] 07/17/2022 Appointment Laboratory Medicine Angélica Gragner P.A.-C. [address] [place] [address] 07/31/2022 Appointment Laboratory Medicine Angélica Granger P.A.-C. [address] [place] [phone] 08/14/2022 Appointment Laboratory Medicine Angélica Granger P.A.-C. [address] [place] [phone] 08/28/2022 Appointment Laboratory Medicine Angélica Granger P.A.-C. [address] [place] [phone] documented as of this encounter Procedures Procedure Name Priority Date/Time Associated Comments Diagnosis TACROLIMUS LEVEL, B Routine 11/02/2018 8:40 AM Transplant Live r Results for this CDT (HCC) procedure are i n the results section. documented in this encounter Results (ABNORMAL) Tacrolimus, B (11/02/2018 8:40 AM CDT) athologist Signature Tacrolimus, B 2.6 (L) 5.0-15.0 11/03/2018 [facility] (Trough) 3:[address] [...] performa nce characteristics determined by [facility] in a manner consistent with CLIA [...] City/State/ZIP Code Phon e Number [facility] [address] [place], [place] [address] [facility] documented in this encounter Visit Diagnoses Diagnosis Transplant Liver (HCC) documented in this encounter Additional Health Concerns Assessment Noted Time PHQ-9 Depression Total Score: 2 08/25/2018 9:45 AM 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
--- OUTSIDE RECORDS SUMMARY | 2022-04-13 12:33 | XMS_ITS | Encounter Summary ---
:1955 Author Organization [facility] Address [address] [place] [address] Care Team Providers Name Role Phone Elsewhere, Pcp Primary Care Provider Unavailable Encounter Details Date Type Department Care Team Description 10/23/2018 Clinical Communication Curt Paez, Center for Juanjo Sharp and Edmundo M.S . 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 [address] [place] [address] [phone] 05/08/2022 Appointment Laboratory Medicine Angélica Granger P.A.-CDemetrius [address] [place] [address] [phone] 05/08/2022 Clinical Admitting/Central Communication Scheduling 05/10/2022 Appointment Radiology Jeremie Rose M.D. [address] [place] [phone] 05/10/2022 Comprehensive Visit Orthopedic Surgery Warner Graves M.D. [address] [place] [address] [phone] 05/22/2022 Appointment Laboratory Medicine Angélica Granger P.A.-CDemetrius [address] [place] [phone] 06/05/2022 Appointment Laboratory Medicine Angélica Granger P.A.-C. [address] [place] [phone] 06/19/2022 Appointment Laboratory Medicine Angélica Granger P.A.-C. [address] [place] [phone] 07/03/2022 Appointment Laboratory Medicine Angélica Granger P.A.-C. [address] [place] [address] [phone] 07/17/2022 Appointment Laboratory Medicine Angélica Granger P.A.-C. [address] [place] [address] [phone] 07/31/2022 Appointment Laboratory Medicine Angélica Granger P.A.-C. [address] [place] [phone] 08/14/2022 Appointment Laboratory Medicine Angélica Granger P.A.-C. [address] [place] [phone] 08/28/2022 Appointment Laboratory Medicine Angélica Granger P.A.-C. [address] [place] [address] [phone] documented as of this encounter Results (ABNORMAL) Tacrolimus, B (03/15/2019 [...] Agency Comment Mailed In Specimen Jacqueline Soto P.A.-C. M.S. LAB BLOOD NON ADD-ON Performing Organization Address City/[facility] Phon e Number 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
--- OUTSIDE RECORDS SUMMARY | 2022-04-13 12:33 | XMS_ITS | Encounter Summary ---
:1955 Author Organization [facility] Address [address] [place] [address] Care Team Providers Name Role Phone Elsewhere, Pcp Primary Care Provider Unavailable Encounter Details Date Type Department Care Team Description 09/04/2018 Hospital Encounter Department of Pompeian, Pretrans plant Recipient Evaluation Exam; Laboratory Medicine Angeline Stern, Chronic Kidney Disease and Pathology, Deshawn GREENE, [facility] in M.S.N. 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 [address] [place] [phone] 04/25/2022 Office Visit Otorhinolaryngology Dex Matta APRN CDemetriusNDemetriusPDemetrius, M.S.N. [address] [place] [phone] 05/08/2022 Appointment Laboratory Medicine Angélica Granger P.A.-C. [address] [place] [phone] 05/08/2022 Clinical Admitting/Central Communication Scheduling 05/10/2022 Appointment Radiology Jeremie Rose M.D. [address] [place] [phone] 05/10/2022 Comprehensive Visit Orthopedic Surgery Warner Graves M.D. [address] [place] [phone] 05/22/2022 Appointment Laboratory Medicine Angélica Granger P.A.-C. [address] [place] [phone] 06/05/2022 Appointment Laboratory Medicine Angélica Granger P.A.-C. [address] [place] [phone] 06/19/2022 Appointment Laboratory Medicine Angélica Granger P.A.-C. [address] [place] [phone] 07/03/2022 Appointment Laboratory Medicine Angélica Granger P.A.-C. [address] [place] [phone] 07/17/2022 Appointment Laboratory Medicine Angélica Granger P.A.-C. [address] [place] [phone] 07/31/2022 Appointment Laboratory Medicine Angélica Granger P.A.-C. [address] [place] [phone] 08/14/2022 Appointment Laboratory Medicine Angélica Granger P.A.-C. [address] [place] [phone] 08/28/2022 Appointment Laboratory Medicine Angélica Granger P.A.-C. [address] [place] [phone] documented as of this encounter Procedures Procedure Name Priority Date/Time Associated Diagnosis Comme nts HIV-1/-2 AG AND AB Routine 09/15/2018 8:15 AM Pretransplant Re sults for this SCREEN, PLASMA CDT Recipient Evaluation proce jack are in Exam the results Chronic Kidney Disease secti on. HLA CLASS II SAB Routine 09/15/2018 8:15 AM Pretransplant Resu lts for this ANTIBODY SCREEN CDT Recipient Evaluation proc edure are in Exam the results Chronic Kidney Disease secti on. HLA CLASS I SAB Routine 09/15/2018 8:15 AM Pretransplant Resul ts for this ANTIBODY SCREEN CDT Recipient Evaluation proc edure are in Exam the results Chronic Kidney Disease secti on. documented in this encounter Results HLA Class II SAB Antibody Screen (09/15/2018 8:15 AM CDT) [facility] Method Time Signature Class II SAB Negative Not Applicable 09/18/2018 [facility] Overall 12:26 PM LABORATORIES - Result CDT [facility] Class II SAB 0 09/18/2018 [facility] cPRA 12:26 PM LABORATORIES - CDT [facility] Comment: ----ADDITIONAL INFORMATION---- This PRA is a [facility] ue Typing Laboratory calculated PRA. PRA is based on the antigen frequency of the Tissue Typing patient a nd donor population. ??PRA reflects all antibodie s with a normalized value (MFI) above 300. SAB DRB1 Specificity NONE 09/18/2018 12:26 PM CDT [facility] SAB [id number] Specificity NONE 09/18/2018 12 :26 PM CDT [facility] SAB DQB1 Specificity NONE 09/18/2018 12:26 PM CDT [facility] SAB DPB1 Specificity NONE 09/18/2018 12:26 PM CDT [facility] Comment: ----ADDITIONAL INFORMATION---- Method: [facility] Performing Laboratory CLIA# [id number] Specimen Anatomical Collection Method Collection Time Receive d Time (Source) Location / / Volume Laterality Blood (Blood, 09/15/2018 8:15 AM 09/17/19 19 9:53 Venous) CDT AM CDT Resulting Agency Comment Mailed In Specimen Angeline Hull APRN C.N.P., M.S.N. LAB HLA ORDER OSMEL Performing Organization Address City/State/ZIP Code Phon e Number [facility] LABORATORIES - [address] [place], [place] [address] [facility] HLA Class I SAB Antibody Screen (09/15/2018 8:15 AM CDT) [facility] Method Time Signature Class I SAB Positive Not Applicable 09/18/2018 [facility] Overall 11:05 AM LABORATORIES - Result CDT [facility] Class I SAB 7 09/18/2018 [facility] cPRA 11:05 AM LABORATORIES - CDT [facility] Comment: ----ADDITIONAL INFORMATION---- This PRA is a [facility] Tiss ue Typing Laboratory calculated PRA. PRA is based on the antigen frequency of the Tissue Typing patient a nd donor population. ??PRA reflects all antibodie s with a normalized value (MFI) above 300. SAB A Specificity see below 09/18/2018 11:05 A M CDT [facility] Comment: 29[302] Format: Serologic equivalent/abbreviated specificity [Normalized Value] shown in decreasing o rder. Note: A serologic equivalent/abbreviated specifi city displayed multiple times could indicate different alleles. SAB B Specificity see below 09/18/2018 11:05 A M CDT [facility] Comment: 54[379] Format: Serologic equivalent/abbreviated specificity [Normalized Value] shown in decreasing o rder. Note: A serologic equivalent/abbreviated specifi city displayed multiple times could indicate different alleles. SAB C Specificity NONE 09/18/2018 11:05 AM CD T [facility] Comment: ----ADDITIONAL INFORMATION---- Method: [facility] Performing Laboratory CLIA# [id number] Specimen Anatomical Collection Method Collection Time Receive d Time (Source) Location / / Volume Laterality Blood (Blood, 09/15/2018 8:15 AM 09/17/19 19 9:53 Venous) CDT AM CDT Resulting Agency Comment Mailed In Specimen Angeline Hull APRN, C.N.P., M.S.N. LAB HLA ORDER OSMEL Performing Organization Address City/[facility] Phon e Number [facility] 200 [place] [address] [facility] HIV-1/-2 Ag and Ab Screen, Plasma (09/15/2018 8:15 AM CDT) P athologist Signature HIV-1/-2 Ag Negative Negative 09/16/2018 [facility] and Ab Screen, 1:43 PM CDT [facility] Comment: Negative result does not rule out [...] OGY - BLOOD ORDERABLES Performing Organization Address City/[facility] Phon e Number [facility] [address] [place] [phone] [facility] documented in this encounter Visit Diagnoses Diagnosis Pretransplant Recipient Evaluation Exam Chronic Kidney Disease documented in this encounter Additional Health Concerns Assessment Noted Time PHQ-9 Depression Total Score: 2 08/25/2018 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
--- OUTSIDE RECORDS SUMMARY | 2022-04-13 12:33 | XMS_ITS | Encounter Summary ---
:1955 Author Organization [facility] Address [address] [place] [address] Care Team Providers Name Role Phone Elsewhere, Pcp Primary Care Provider Unavailable Encounter Details Date Type Department Care Team Description 08/27/2018 Clinical Communication Department of Warner Graves Orthopedic Surgery in [place], [place] [address] [place] [address] [address] [place] [phone] Social History Tobacco Use Types Packs/Day Years [...] at Date Recorded Male 05/16/2020 4:27 PM RAYON TESTER documented as of this encounter Plan of Treatment Upcoming Encounters Date Type Specialty Care Team Description 04/24/2022 Appointment Laboratory Medicine Angélica Granger P.A.-CDemetrius [address] [place] [phone] 04/25/2022 Office Visit Otorhinolaryngology Dex Matta APRN, C.N.P., M.S.N. [address] [place] [address] [phone] 05/08/2022 Appointment Laboratory Medicine Angélica Granger P.A.-CDemetrius [address] [place] [address] [phone] 05/08/2022 Clinical Admitting/Central Communication Scheduling 05/10/2022 Appointment Radiology Jeremie Rose M.D. [address] [place] [phone] 05/10/2022 Comprehensive Visit Orthopedic Surgery Warner Graves M.D. [address] [place] [address] [phone] 05/22/2022 Appointment Laboratory Medicine Angélica Granger P.A.-CDemetrius [address] [place] [phone] 06/05/2022 Appointment Laboratory Medicine Angélica Granger P.A.-C. [address] [place] [phone] 06/19/2022 Appointment Laboratory Medicine Angélica Granger P.A.-C. [address] [place] [phone] 07/03/2022 Appointment Laboratory Angélica Royal P.A.-C. [address] [place] [phone] 07/17/2022 Appointment Laboratory Angélica Royal P.A.-C. [address] [place] [phone] 07/31/2022 Appointment Laboratory Angélica Royal P.A.-C. [address] [place] [phone] 08/14/2022 Appointment Laboratory Angélica Royal P.A.-C. [address] [place] [phone] 08/28/2022 Appointment Laboratory Angélica Royal P.A.-C. [address] [place] [phone] documented as of this encounter Visit Diagnoses Not on filedocumented in this encounter Additional Health Concerns Assessment Noted Time PHQ-9 Depression Total Score: 2 08/25/2018 9:45 AM RAYON TESTER documented as of this encounter Care Teams Certified Alcohol Counselor Relationship Specialty Start Date End Date Elsewhere, Pcp PCP - General Family Medicine 07/29/17 documented as of this encounter
--- OUTSIDE RECORDS SUMMARY | 2022-04-13 12:34 | XMS_ITS | Encounter Summary ---
:1955 Author Organization [facility] Address [address] [place] [address] Care Team Providers Name Role Phone Elsewhere, Pcp Primary Care Provider Unavailable Encounter Details Date Type Department Care Team Description 08/24/2018 Orders Only Roshan Muniz splant Liver (HCC) (Primary Dx); Center for A, M.S.N., Medication Ther apy Deburrer Strip Not Anticoagulant Transplantation and R.N., C.C.T. C. Clinical Regeneration in [address] [place], [place] [address] [place] [phone] [place] [phone] Social History Tobacco Use Types Packs/Day [...] or slept in a correction (including now)? 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 [address] [place] [phone] 05/08/2022 Appointment Laboratory Medicine Angélica Granger P.A.-CDemetrius [address] [place] [phone] 05/08/2022 Clinical Admitting/Central Communication Scheduling 05/10/2022 Appointment Radiology Jeremie Rose M.D. [address] [place] [phone] 05/10/2022 Comprehensive Visit Orthopedic Surgery Warner Graves M.D. [address] [place] [phone] 05/22/2022 Appointment Laboratory Medicine Angélica Granger P.A.-C. [address] [place] [phone] 06/05/2022 Appointment Laboratory Medicine Angélica Granger P.A.-C. [address] [place] [phone] 06/19/2022 Appointment Laboratory Medicine Angélica Granger P.A.-C. [address] [place] [phone] 07/03/2022 Appointment Laboratory Medicine Angélica Granger P.A.-C. [address] [place] [phone] 07/17/2022 Appointment Laboratory Medicine Angélica Granger P.A.-C. [address] [place] [phone] 07/31/2022 Appointment Laboratory Medicine Angélica Granger P.A.-C. [address] [place] [phone] 08/14/2022 Appointment Laboratory Medicine Angélica Granger P.A.-C. [address] [place] [phone] 08/28/2022 Appointment Laboratory Medicine Angélica Granger P.A.-C. [address] [place] [phone] documented as of this encounter Visit Diagnoses Diagnosis Transplant Liver (HCC) - Primary Medication Therapy Deburrer Strip Not Anticoa gulant documented in this encounter Care Teams Rn Charge Relationship Specialty Start Date End Date Elsewhere, Pcp PCP - General Family Medicine 07/29/17 documented as of this encounter
--- OUTSIDE RECORDS SUMMARY | 2022-04-13 12:34 | XMS_ITS | Encounter Summary ---
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 [place] [address] [place] [phone] Referral ID Status Reason Start Date Expiration Date Visits Requ ested Visits Authorized [id number] Closed 06/25/2018 06/25/2019 1 1 Encounter Details Date Type Department Care Team Description 08/24/2018 Nurse Only Angélica Ching P.A.-Janette [address] [place] [phone] Post-Transplant Center for Transplantation Roshan Grace M.S.N., R.N., C.C.T.C. 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 Mr. Singh reports that he has been doing well. He started a weight lifting program about 3 months ago. He is listed for currently listed for kidney transplant. ----- Has the patient been hospitalized since last patient status date? no Was there evidence of noncompliance with immunosuppression medication during this follow-up period that compromised the patient's recovery? No Karnofsky Score = 90: Able to carry on normal activity with only minor symptoms. The source of this information is the patient. Physical capacity: No limitations. Working for income: No, patient choice, retired. Diabetes during the follow-up period? No Did the patient have any acute rejection episodes during the follow-up period? No. Biological or anti-viral therapy? No Recipient diagnosed with any malignant cancer since last follow-up? No ---- Currently having labs done every 3 months. Will keep current schedule unless otherwise dictated by provider. Bruce Julian Singh has labs drawn at [facility]. ---- Bruce Singh's local provider is Dr. Cole at [facility]. ---- Reviewed current test results, vital signs, and follow up plans with patient. Medications reconciled. Reviewed with patient general post transplant care. Patient verbalized understanding of all information. Patient to be seen by Transplant Center Staff for further assessment and management. ING GUIDE documented in this encounter Plan of Treatment Upcoming Encounters Date Type Specialty Care Team Description 04/24/2022 Appointment Laboratory Medicine Angélica Granger P.A.-C. [address] [place] [phone] 04/25/2022 Office Visit Otorhinolaryngology Dxe Matta APRN, C.N.P., M.S.N. [address] [place] [phone] 05/08/2022 Appointment Laboratory Medicine Angélica Granger P.A.-C. [address] [place] [phone] 05/08/2022 Clinical Admitting/Central Communication Scheduling 05/10/2022 Appointment Radiology Jeremie Rose M.D. [address] [place] [phone] 05/10/2022 Comprehensive Visit Orthopedic Surgery Warner Graves M.D. [address] [place] [phone] 05/22/2022 Appointment Laboratory Medicine Angélica Granger P.A.-C. [address] [place] [phone] 06/05/2022 Appointment Laboratory Medicine Angélica Granger P.A.-C. [address] [place] [phone] 06/19/2022 Appointment Laboratory Medicine Angélica Granger P.A.-C. [address] [place] [phone] 07/03/2022 Appointment Laboratory Medicine Angélica Granger P.A.-C. [address] [place] [phone] 07/17/2022 Appointment Laboratory Medicine Angélica Granger P.A.-C. [address] [place] [phone] 07/31/2022 Appointment Laboratory Medicine Angélica Granger P.A.-C. [address] [place] [phone] 08/14/2022 Appointment Laboratory Medicine Angélica Granger P.A.-C. [address] [place] [phone] 08/28/2022 Appointment Laboratory Medicine Angélica Granger P.A.-C. 200 [place] [phone] documented as of this encounter Visit Diagnoses Diagnosis Transplant Liver (HCC) Medication Therapy Prison Not Anticoa gulant Other Specified Diseases Of Liver Immunosuppressed State documented in this encounter Care Teams Rigger Apprentice Relationship Specialty Start Date End Date Elsewhere, Pcp PCP - General Family Medicine 07/29/17 documented as of this encounter
--- OUTSIDE RECORDS SUMMARY | 2022-04-13 12:34 | XMS_ITS | Encounter Summary ---
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 [address] [place] [address] [phone] 05/08/2022 Appointment Laboratory Medicine Angélica Granger P.A.-CDemetrius [address] [place] [address] [phone] 05/08/2022 Clinical Admitting/Central Communication Scheduling 05/10/2022 Appointment Radiology Jeremie Rose M.D. [address] [place] [phone] 05/10/2022 Comprehensive Visit Orthopedic Surgery [facility] Graves M.D. [address] [place] [address] [phone] 05/22/2022 Appointment Laboratory Medicine Angélica Granger P.A.-CDemetrius [address] [place] [phone] 06/05/2022 Appointment Laboratory Medicine Angélica Granger P.A.-C. [address] [place] [phone] 06/19/2022 Appointment Laboratory Medicine Angélica Granger P.A.-C. [address] [place] [phone] 07/03/2022 Appointment Laboratory Medicine Angélica Granger P.A.-C. [address] [place] [phone] 07/17/2022 Appointment Laboratory Medicine Angélica Granger P.A.-C. [address] [place] [phone] 07/31/2022 Appointment Laboratory Medicine Angélica Granger P.A.-C. [address] [place] [phone] 08/14/2022 Appointment Laboratory Medicine Angélica Granger P.A.-C. [address] [place] [phone] 08/28/2022 Appointment Laboratory Medicine Angélica Granger P.A.-C. 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 Achill es and plantar calcaneal spurs. Arterial calcifications. Narrative 08/25/2018 1:18 PM HAZARDOUS MATERIALS TANKER DRIVER EXAM: ??DX FOOT ANKLE RIGHT 3 VIEWS Procedure Note Moises Styles M.D. - 08/25/2018Forma tting of this note might be different from the original. EXAM: DX FOOT ANKLE RIGHT 3 VIEWS IMPRESSION: Hindfoot valgus and pes plan us. 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 Achill es and plantar calcaneal spurs. Arterial calcifications. Padmini Hudson P.A.-C. IMA[facility]NO[facility] DAREN RAMIRES documented in this encounter Visit Diagnoses Diagnosis Pain Right Ankle And Joints Right Foot - Primary Pain Right Ankle And Joints Right Foot documented in this encounter Care Teams Herbologist Relationship Specialty Start Date End Date Elsewhere, Pcp PCP - General Family Medicine 07/29/17 documented as of this encounter
--- OUTSIDE RECORDS SUMMARY | 2022-04-13 12:34 | XMS_ITS | Encounter Summary ---
:1955 Author Organization [facility] Address [address] [place] [address] Care Team Providers Name Role Phone Elsewhere, Pcp Primary Care Provider Unavailable Reason for Visit Reason Onset Date Comments orders needed 06/24/2018 Encounter Details Date Type Department Care Team Description 06/24/2018 Clinical Communication Curt Vázquez , orders needed Elizabeth for [facility] and [phone] Clinical Regeneration in (Work) [place], [place] [address] [place] [phone] Social History Tobacco Use Types Packs/Day [...] [place] [facility] 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 - 06/29/2018 1:57 PM CST No kidney appointments needed at this time. Please cancel nephrology and my appointments. INFORMATION DISCUSSED I received a message that patient was returning to see liver and to add kidney appointments. We justsaw Mr. Singh in the kidney transplant program last fall and he is active on the kidney transplantwaiting list. I called him to discuss this further. He has not had any recent illnesses or hospitalizations. He has no new concerns related to kidney transplant at this time. We mutually agreed that hedoes not need to be seen by the kidney team at this time. PLAN Disposition/Recommendation: Active on kidney transplant waiting list. Education: patient/caller able to teach back Caller agreeable to plan of care: yes The following references were used: nursing clinical judgement NE ADVERTISING ANALYST Telephone Encounter - Diana Gambino - 06/29/2018 10:40 AM CST I have that scheduled with sarina Lema forgot to mention that. NE ADVERTISING ANALYST Telephone Encounter - Patricia Pinto R.N., C.C.T.C. - 06/29/2018 10:23 AM CST I am happy to see him, but does he also want to meet with a licensed vocational nurse? Thanks! NE ADVERTISING ANALYST Telephone Encounter - Diana Gambino - 06/29/2018 7:[address] order for nurse visit. Thank you! Diana NE ADVERTISING ANALYST Telephone Encounter - Patricia Pinto R.N., C.CDemetriusT.CDemetrius - 06/26/2018 3:41 PM CST The patient will only need a nephrology appt and myself. Thanks! NE ADVERTISING ANALYST Telephone Encounter - Diana Gambino - 06/24/2018 10:52 AM CST Liver appt coordinators called because the pt is coming on 08/24 for liver annual and would like pt to be seen by us. Please advise. Thank you! Diana NE ADVERTISING ANALYST documented in this encounter Plan of Treatment Upcoming Encounters Date Type Specialty Care Team Description 04/24/2022 Appointment Laboratory Medicine Angélica Granger P.A.-C. [address] [place] [phone] 04/25/2022 Office Visit Otorhinolaryngology Dex Matta APRN, C.N.P., M.S.N. [address] [place] [address] [phone] 05/08/2022 Appointment Laboratory Medicine Angélica Granger P.A.-C. [address] [place] [address] [phone] 05/08/2022 Clinical Admitting/Central Communication Scheduling 05/10/2022 Appointment Radiology Jeremie Rose M.D. [address] [place] [phone] 05/10/2022 Comprehensive Visit Orthopedic Surgery Warner Graves M.D. [address] [place] [phone] 05/22/2022 Appointment Laboratory Medicine Angélica Granger P.A.-C. [address] [place] [phone] 06/05/2022 Appointment Laboratory Medicine Angélica Granger P.A.-C. [address] [place] [phone] 06/19/2022 Appointment Laboratory Medicine Angélica Granger P.A.-C. [address] [place] [phone] 07/03/2022 Appointment Laboratory Medicine Angélica Granger P.A.-C. [address] [place] [phone] 07/17/2022 Appointment Laboratory Medicine Angélica Granger P.A.-C. [address] [place] [phone] 07/31/2022 Appointment Laboratory Medicine Angélica Granger P.A.-C. [address] [place] [phone] 08/14/2022 Appointment Laboratory Medicine Angélica Granger P.A.-C. [address] [place] [phone] 08/28/2022 Appointment Laboratory Medicine Angélica Granger P.A.-C. [address] [place] [phone] documented as of this encounter Visit Diagnoses Not on filedocumented in this encounter Care Teams Tree Care Foreman Relationship Specialty Start Date End Date Elsewhere, Pcp PCP - General Family Medicine 07/29/17 documented as of this encounter
--- OUTSIDE RECORDS SUMMARY | 2022-04-13 12:34 | XMS_ITS | Encounter Summary ---
:1955 Author Organization [facility] Address [address] [place] [address] Care Team Providers Name Role Phone Elsewhere, Pcp Primary Care Provider Unavailable Reason for Referral Outpatient (Routine) - Closed Specialty Diagnoses / Procedures Referred By Contact Refer red To Contact Transplant Diagnoses Transplant Liver (HCC) Medication Therapy Electrician Technician Not Anticoagulant Other Specified Diseases Of Liver [place] Angélica Granger P.A.-C. [address] [phone] Referral ID Status Reason Start Date Expiration Date Visits Requ ested Visits Authorized [id number] Closed 06/25/2018 06/25/2019 1 1 EMS APPLICATIONS PROGRAMMING LEAD Outpatient (Routine) - Closed Specialty Diagnoses / Procedures Referred By Contact Refer red To Contact Transplant Diagnoses Transplant Liver (HCC) Medication Therapy Usp Not Anticoagulant Other Specified Diseases Of Liver [place] Angélica Granger P.A.-C. [address] [phone] Referral ID Status Reason Start Date Expiration Date Visits Requ ested Visits Authorized [id number] Closed 06/25/2018 06/25/2019 1 1 EMS APPLICATIONS PROGRAMMING LEAD Encounter Details Date Type Department Care Team Description 06/25/2018 Orders Only Curt Cote, Transp lant Liver (HCC) (Primary Dx); Center rufina Millard R.N. 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 [address] [place] [phone] 04/25/2022 Office Visit Otorhinolaryngology Dex Matta APRN CDemetriusNJuan Miguel, M.S.N. [address] [place] [phone] 05/08/2022 Appointment Laboratory Medicine Angélica Granger P.A.-C. [address] [place] [phone] 05/08/2022 Clinical Admitting/Central Communication Scheduling 05/10/2022 Appointment Radiology Jeremie Rose M.D. [address] [place] [phone] 05/10/2022 Comprehensive Visit Orthopedic Surgery Warner Graves M.D. [address] [place] [phone] 05/22/2022 Appointment Laboratory Medicine Angélica Granger P.A.-C. [address] [place] [phone] 06/05/2022 Appointment Laboratory Medicine Angélica Granger P.A.-C. [address] [place] [phone] 06/19/2022 Appointment Laboratory Medicine Angélica Granger P.A.-C. [address] [place] [phone] 07/03/2022 Appointment Laboratory Medicine Angélica Granger P.A.-C. [address] [place] [phone] 07/17/2022 Appointment Laboratory Medicine Angélica Granger P.A.-C. [address] [place] [phone] 07/31/2022 Appointment Laboratory Medicine Angélica Granger P.A.-C. [address] [place] [phone] 08/14/2022 Appointment Laboratory Medicine Angélica Granger P.A.-C. [address] [place] [phone] 08/28/2022 Appointment Laboratory Medicine Angélica Granger P.A.-C. [address] [place] [phone] Scheduled Referrals Name Type Priority Associated Order Schedule Diagnoses Transplant Liver Outpatient Referral Routine Transplant Liver Expected: office visit ([facility]) 08/24/2018 (clinic) - Provider Medication Therapy (A pproximate), Usp Not Expires: Anticoagulant 06/25/2019 Other Specified Diseases Of Live r [place]uppressed [place] Transplant Liver Outpatient Referral Routine Transplant Liver Expected: office visit ([facility]) 08/24/2018 (clinic) - Nurse Medication Therapy (Appr oximate), Visit Electrician Technician Not Expires: Anticoagulant 06/25/2019 Other Specified Diseases Of Live r Immunosuppressed [place] documented as of this encounter Results US Liver Transplant (08/24/2018 10:17 AM SYSTEMS APPLICATIONS PROGRAMMING LEAD) Anatomical Region Laterality Modality Abdomen, Ultrasound RST LOS, Ultrasound ARZ LOS, Ultrasound FLA N/A Ultrasound LOS Specimen (Source) Anatomical Collection Method Collection Time Re ceived Time Location / / Volume Laterality 08/24/2018 10:34 AM SYSTEMS APPLICATIONS PROGRAMMING LEAD Impressions 08/24/2018 11:14 AM SYSTEMS APPLICATIONS PROGRAMMING LEAD IMPRESSION: 1. Normal-appearing hepatic allograft wi th patent vasculature. 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 2. Stable pancreatic cysts, perhaps side branch IPMN. 3. Parenchymal thinning and increased ec hogenicity of both kidneys compatible with changes of chronic renal disease. Narrative 08/24/2018 11:14 AM SYSTEMS APPLICATIONS PROGRAMMING LEAD EXAM: US LIVER TRANSPLANT Exam performed with color and spectral D oppler analysis. COMPARISON: Hepatic transplant ultrasoun d 08/21/2017 and 08/19/2016 FINDINGS: Hepatic allograft: Normal. No mass. Gallbladder: Absent. Bile ducts: No biliary ductal dilatation . ??Pneumobilia. Doppler Splenic, portal, and hepatic vei ns are patent with antegrade flow. The main hepatic artery is patent with anteg rade flow. Main portal vein remains dilated measuring up to 2.8 cm in the mi d portion and 1.6 cm near the hilum (previously, measuring up to 2.8 cm). MHA peak systolic velocity: 69 cm/s MHA RI: 0.80 RHA RI: 0.69 LHA RI: 0.75 Resistive indices: Borderline elevated. IVC: Normal where seen. Pancreas: Partially obscured by bowel ga s. Two simple cystic lesions of the pancreatic head, the largest measuring u p to 0.9 x 1.0 x 1.2 cm, are not significantly changed. Right kidney: Length: 9.5 cm. Parenchyma l thinning with increased echogenicity. 1.4 cm cyst with a thin septation in the upper pole. Left kidney: Length: 9.8 cm. Parenchymal thinning with increased echogenicity. 1.3 cm cyst in the lower pole. Spleen: Normal. Splenule. ??Length: 12.2 cm Aorta: Normal caliber. Other: No ascites. Procedure Note Ileana Uriarte M.D. - 08/24/2018Form atting of this note might be different from the original. EXAM: US LIVER TRANSPLANT Exam performed with color and spectral D oppler analysis. COMPARISON: Hepatic transplant ultrasoun d 08/21/2017 and 08/19/2016 FINDINGS: Hepatic allograft: Normal. No mass. Gallbladder: Absent. Bile ducts: No biliary ductal dilatation . Pneumobilia. Doppler Splenic, portal, and hepatic vei ns are patent with antegrade flow. The main hepatic artery is patent with anteg rade flow. Main portal vein remains dilated measuring up to 2.8 cm in the mi d portion and 1.6 cm near the hilum (previously, measuring up to 2.8 cm). MHA peak systolic velocity: 69 cm/s MHA RI: 0.80 RHA RI: 0.69 LHA RI: 0.75 Resistive indices: Borderline elevated. IVC: Normal where seen. Pancreas: Partially obscured by bowel ga s. Two simple cystic lesions of the pancreatic head, the largest measuring u p to 0.9 x 1.0 x 1.2 cm, are not significantly changed. Right kidney: Length: 9.5 cm. Parenchyma l thinning with increased echogenicity. 1.4 cm cyst with a thin septation in the upper pole. Left kidney: Length: 9.8 cm. Parenchymal thinning with increased echogenicity. 1.3 cm cyst in the lower pole. Spleen: Normal. Splenule. Length: 12.2 c m Aorta: Normal caliber. Other: No ascites. IMPRESSION: 1. Normal-appearing hepatic allograft wi th patent vasculature. 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 2. Stable pancreatic cysts, perhaps side branch IPMN. 3. Parenchymal thinning and increased ec hogenicity of both kidneys compatible with changes of chronic renal disease. Angélica Granger P.A.-C. IMG US PROCEDURES (ABNORMAL) Tacrolimus, B (08/24/2018 7:38 AM SYSTEMS APPLICATIONS PROGRAMMING LEAD) athologist Signature Tacrolimus, B 2.5 (L) 5.0-15.0 08/24/2018 [facility] (Trough) 1:59 PM SYSTEMS APPLICATIONS PROGRAMMING LEAD [address] ng/mL [facility] Comment: ----ADDITIONAL [...] performa nce characteristics determined by [facility] in a manner consistent with CLIA requirements. This test has not been cleared or approved by the U.S. Mer d and Drug Administration. Specimen Anatomical Collection Method Collection Time Receive d Time (Source) Location / / Volume Laterality Blood (Blood, 08/24/2018 7:38 AM 08/25/19 19 Venous) SYSTEMS APPLICATIONS PROGRAMMING LEAD 10:43 AM SYSTEMS APPLICATIONS PROGRAMMING LEAD Angélica Granger P.A.-C. LAB BLOOD NON ADD-ON Performing Organization Address City/State/ZIP Code Phon e Number [facility] [address] [place], [place] [address] [facility] PSA (Prostate-Specific Antigen) Screen (08/24/2018 7:38 AM SYSTEMS APPLICATIONS PROGRAMMING LEAD) athologist Signature Prostate-Speci 0.54 <=4.5 08/24/2018 [facility] fic Ag ng/mL 8:53 AM [facility] Comment: ----ADDITIONAL INFORMATION---- The testing method is an electrochemilum inescence assay manufactured by [employer] and performed on the Modular or Didier system . Values obtained with different assay met hods or kits may be different and cannot be used inte rchangeably. Test results cannot be interpreted as ab solute evidence for the presence or absence of malignant disease. Specimen Anatomical Collection Method Collection Time Receive d Time (Source) Location / / Volume Laterality Blood (Blood, 08/24/2018 7:38 AM 08/25/19 19 7:43 Venous) SYSTEMS APPLICATIONS PROGRAMMING LEAD AM SYSTEMS APPLICATIONS PROGRAMMING LEAD Angélica Granger P.A.-C. LAB BLOOD ADD-ON Performing Organization Address City/State/ZIP Code Phon e Number [facility] - [address] [place], [place] [address] [facility] Mononucleosis RNA/DNA (08/24/2018 7:38 AM SYSTEMS APPLICATIONS PROGRAMMING LEAD) Analysis Performed At Patho logist Time Signature [place] RNA/DNA Collected DEFAULT 08/24/2018 [facility] EDTA x 2 7:43 AM [facility] [place] RNA/DNA Collected DEFAULT 08/24/2018 [facility] NaHep 7:43 AM [facility] Specimen Anatomical Collection Method Collection Time Receive d Time (Source) Location / / Volume Laterality Blood (Blood, 08/24/2018 7:38 AM 08/25/19 19 7:43 Venous) SYSTEMS APPLICATIONS PROGRAMMING LEAD AM SYSTEMS APPLICATIONS PROGRAMMING LEAD Narrative [facility] - 08/24/2018 7:43 AM SYSTEMS APPLICATIONS PROGRAMMING LEAD Specimen Information: Specimen ID: [id number] Specimen Type: Blood Specimen Collection Start Date: 9 ??7:38 AM Specimen Received Date: 08/24/2018 ??7:43 AM Specimen ID: [id number] Specimen Type: Blood Specimen Collection Start Date: 9 ??7:38 AM Specimen Received Date: 08/24/2018 ??7:43 AM Specimen ID: [id number] Specimen Type: Blood Specimen Collection Start Date: 9 ??7:38 AM Specimen Received Date: 08/24/2018 ??7:43 AM Angélica Granger P.A.-C. LAB BLOOD NON ADD-ON Performing Organization Address City/[facility]/ZIP Code Phon e Number [facility] - [address] [place] [phone] [facility] Organ Liver TX (08/24/2018 7:38 AM SYSTEMS APPLICATIONS PROGRAMMING LEAD) [facility] Time Signature Organ Liver Collected DEFAULT 08/24/2018 [facility] [place] 7:45 AM SYSTEMS APPLICATIONS PROGRAMMING LEAD LABORATORIES - [facility] Specimen Anatomical Collection Method Collection Time Receive d Time (Source) Location / / Volume Laterality Blood (Blood, 08/24/2018 7:38 AM 08/25/19 19 7:45 Venous) SYSTEMS APPLICATIONS PROGRAMMING LEAD AM SYSTEMS APPLICATIONS PROGRAMMING LEAD Angélica Granger P.A.-C. LAB BLOOD NON ADD-ON Performing Organization Address [facility] Phon e Number [facility] - [address] [place] [address] [facility] PT (Prothrombin Time) with INR (08/24/2018 7:38 AM SYSTEMS APPLICATIONS PROGRAMMING LEAD) [facility] gist Method Time Signature Prothrombin 11.6 9.4 - 12.5 08/24/2018 [facility] Time, P sec 7:57 AM SYSTEMS APPLICATIONS PROGRAMMING LEAD LABORATORIES [facility] INR 1.1 0.9 - 1.1 08/24/2018 [facility] 7:57 AM SYSTEMS APPLICATIONS PROGRAMMING LEAD [facility] Comment: ----ADDITIONAL INFORMATION---- Standard intensity warfarin therapeutic range: 2.0 to 3.0 ?? High intensity warfarin therapeutic rang e: 2.5 to 3.5 Specimen Anatomical Collection Method Collection Time Receive d Time (Source) Location / / Volume Laterality Blood (Blood, 08/24/2018 7:38 AM 08/25/19 19 7:43 Venous) SYSTEMS APPLICATIONS PROGRAMMING LEAD AM SYSTEMS APPLICATIONS PROGRAMMING LEAD Angélica Granger P.A.-C. LAB BLOOD ADD-ON Performing Organization Address [facility] Phon e Number [facility] - [address] (ABNORMAL) Magnesium (08/24/2018 7:38 AM SYSTEMS APPLICATIONS PROGRAMMING LEAD) Analysis Performed At [facility] Time Signature Magnesium, S 3.0 (H) 1.7 - 2.3 08/24/2018 [facility] mg/dL 8:53 AM SYSTEMS APPLICATIONS PROGRAMMING LEAD LABORATORIES [facility] Specimen Anatomical Collection Method Collection Time Receive d Time (Source) Location / / Volume Laterality Blood (Blood, 08/24/2018 7:38 AM 08/25/19 7:43 Venous) SYSTEMS APPLICATIONS PROGRAMMING LEAD AM SYSTEMS APPLICATIONS PROGRAMMING LEAD Angélica Granger P.A.-C. LAB BLOOD ADD-ON Performing Organization Address City/[facility]/ZIP Code Phon e Number [facility] - [address] [place], [place] [address] [facility] 25-Hydroxyvitamin D2 and D3 (08/24/2018 7:38 AM SYSTEMS APPLICATIONS PROGRAMMING LEAD) P athologist Signature 25-Hydroxy D2 <4.0 ng/mL 08/25/2018 [facility] 2:29 PM SYSTEMS APPLICATIONS PROGRAMMING LEAD [address] [facility] 25-Hydroxy D3 55 ng/mL 08/25/2018 [facility] 2:29 PM SYSTEMS APPLICATIONS PROGRAMMING LEAD [facility] 25-Hydroxy D 55 ng/mL 08/25/2018 [facility] Total 2:29 PM SYSTEMS APPLICATIONS PROGRAMMING LEAD [facility] Comment: Interpretation: 51-80 ng/mL (increased r isk of hypercalciuria) ----REFERENCE VALUE---- 25-HYDROXY D TOTAL (D2+D3) Optimum level s in the healthy population are 20-50, patients with bone disease may benefit from higher levels within this r itzel. ----ADDITIONAL INFORMATION---- This test was developed and its performa nce characteristics determined by [facility] in a manner consistent with CLIA requirements. This test has not been cleared or approved by the U.S. Mer d and Drug Administration. Specimen Anatomical Collection Method Collection Time Receive d Time (Source) Location / / Volume Laterality Blood (Blood, 08/24/2018 7:38 AM 08/25/19 19 Venous) SYSTEMS APPLICATIONS PROGRAMMING LEAD 10:36 AM SYSTEMS APPLICATIONS PROGRAMMING LEAD Angélica Granger P.A.-C. LAB BLOOD ADD-ON Performing Organization Address City/[facility]/ZIP Code Phon e Number [facility] [address] [place], [place] [address] [facility] (ABNORMAL) Iron and Total Iron-Binding Capacity (08/24/2018 7:38 AM SYSTEMS APPLICATIONS PROGRAMMING LEAD) Patholo gist Method Time Signature Iron 92 50 - 150 08/24/2018 [facility] mcg/dL 8:53 AM SYSTEMS APPLICATIONS PROGRAMMING LEAD LABORATORIES [facility] Total Iron 240 (L) 250 - 400 08/24/2018 [facility] Binding mcg/dL 8:53 AM SYSTEMS APPLICATIONS PROGRAMMING LEAD LABORATORIES - [facility] Percent 38 14 - 50 % 08/24/2018 [facility] Saturation 8:53 AM SYSTEMS APPLICATIONS PROGRAMMING LEAD [facility] Specimen Anatomical Collection Method Collection Time Receive d Time (Source) Location / / Volume Laterality Blood (Blood, 08/24/2018 7:38 AM 08/25/19 7:43 Venous) SYSTEMS APPLICATIONS PROGRAMMING LEAD AM SYSTEMS APPLICATIONS PROGRAMMING LEAD Angélica Granger P.A.-C. LAB BLOOD ADD-ON Performing Organization Address City/[facility]/ZIP Code Phon e Number [facility]IES - [address] (ABNORMAL) Uric Acid (08/24/2018 7:38 AM SYSTEMS APPLICATIONS PROGRAMMING LEAD) Analysis Performed At Patho logist Time Signature Uric Acid, S 8.6 (H) 3.7 - 8.0 08/24/2018 [facility] mg/dL 8:53 AM SYSTEMS APPLICATIONS PROGRAMMING LEAD LABORATORIES [facility] Specimen Anatomical Collection Method Collection Time Receive d Time (Source) Location / / Volume Laterality Blood (Blood, 08/24/2018 7:38 AM 08/25/19 7:43 Venous) SYSTEMS APPLICATIONS PROGRAMMING LEAD AM SYSTEMS APPLICATIONS PROGRAMMING LEAD Angélica Granger P.A.-C. LAB BLOOD ADD-ON Performing Organization Address City/[facility]/ZIP Code Phon e Number [facility] - [address] S-TSH (Thyroid-Stimulating Hormone - Sensitive) (08/24/2018 7:38 AM SYSTEMS APPLICATIONS PROGRAMMING LEAD) P athologist Signature TSH, Sensitive 4.1 0.3 - 4.2 08/24/2018 [facility] mIU/L 8:53 AM SYSTEMS APPLICATIONS PROGRAMMING LEAD [facility] Specimen Anatomical Collection Method Collection Time Receive d Time (Source) Location / / Volume Laterality Blood (Blood, 08/24/2018 7:38 AM 08/25/19 7:43 Venous) SYSTEMS APPLICATIONS PROGRAMMING LEAD AM SYSTEMS APPLICATIONS PROGRAMMING LEAD Angélica Granger P.A.-C. LAB BLOOD ADD-ON Performing Organization Address City/State/ZIP Code Phon e Number [facility]IES - [address] (ABNORMAL) Hemoglobin A1c (08/24/2018 7:38 AM SYSTEMS APPLICATIONS PROGRAMMING LEAD) Patholo gist Method Time Signature Hemoglobin A1c, 6.0 (H) 4.0 - 5.6 08/24/2018 [facility] B % 8:20 AM [facility] Comment: Hemoglobin A1c values of 5.7-6.4 percent indicate an increased risk for developing diabetes [place]. In diabetic patients, HbA1c goals should be discussed with healthcare provider. Specimen Anatomical Collection Method Collection Time Receive d Time (Source) Location / / Volume Laterality Blood (Blood, 08/24/2018 7:38 AM 08/25/19 19 7:43 Venous) SYSTEMS APPLICATIONS PROGRAMMING LEAD AM SYSTEMS APPLICATIONS PROGRAMMING LEAD Angélica Granger P.A.-C. LAB BLOOD ADD-ON Performing Organization Address City/State/ZIP Code Phon e Number [facility] - [address] [place], [place] [address] [facility] (ABNORMAL) Lipid Panel (08/24/2018 7:38 AM SYSTEMS APPLICATIONS PROGRAMMING LEAD) athologist Signature Cholesterol, 144 mg/dL 08/24/2018 [facility] Total 8:53 AM [facility] Comment: ----REFERENCE VALUE---- Desirable: < 200 Borderline high: 200 - 239 High: > or = 240 Triglycerides 170 (H) mg/dL 08/24/2018 8:53 AM [facility] Comment: ----REFERENCE VALUE---- Normal: <150 Borderline high: 150-199 High: 200-499 Very high: > or =500 Cholesterol, HDL, S 40 >=40 mg/dL 08/24/2018 8:53 AM [facility] PUS Calculated LDL 70 mg/dL 08/24/2018 8:53 AM SYSTEMS APPLICATIONS PROGRAMMING LEAD [facility] Comment: ----REFERENCE VALUE---- Desirable: <100 Above Desirable: 100-129 Borderline high: 130-159 High: 160-189 Very high: > or =190 Cholesterol, Non-HDL, 104 mg/dL 08/24/2018 8:5 3 AM SYSTEMS APPLICATIONS PROGRAMMING LEAD [facility] [place] [facility] Comment: ----REFERENCE VALUE---- Desirable: <130 Above Desirable: 130-159 Borderline high: 160-189 High: 190-219 Very high: > or =220 Specimen Anatomical Collection Method Collection Time Receive d Time (Source) Location / / Volume Laterality Blood (Blood, 08/24/2018 7:38 AM 08/25/19 7:43 Venous) SYSTEMS APPLICATIONS PROGRAMMING LEAD AM SYSTEMS APPLICATIONS PROGRAMMING LEAD Angélica Granger P.A.-C. LAB BLOOD ADD-ON Performing Organization Address City/State/ZIP Code Phon e Number [facility]IES - [address] [place], [place] [address] [facility] (ABNORMAL) CMP (Comprehensive Metabolic Panel) (08/24/2018 7:38 AM SYSTEMS APPLICATIONS PROGRAMMING LEAD) [facility] Method Time Signature Potassium, S 4.0 3.6 - 5.2 08/24/2018 [facility] mmol/L 8:53 AM SYSTEMS APPLICATIONS PROGRAMMING LEAD LABORATORIES - [facility] Sodium, S 137 135 - 145 08/24/2018 [facility] mmol/L 8:53 AM SYSTEMS APPLICATIONS PROGRAMMING LEAD LABORATORIES - [facility] Chloride, S 98 98 - 107 08/24/2018 [facility] mmol/L 8:53 AM SYSTEMS APPLICATIONS PROGRAMMING LEAD LABORATORIES - [facility] Bicarbonate, S 26 22 - 29 08/24/2018 [facility] mmol/L 8:53 AM SYSTEMS APPLICATIONS PROGRAMMING LEAD LABORATORIES - [facility] Anion Gap 13 7 - 15 08/24/2018 [facility] 8:53 AM SYSTEMS APPLICATIONS PROGRAMMING LEAD LABORATORIES - [facility] BUN (Blood 51 (H) 8 - 24 08/24/2018 [facility] Urea mg/dL 8:53 AM SYSTEMS APPLICATIONS PROGRAMMING LEAD LABORATORIES - Nitrogen), S [facility] Creatinine 2.71 (H) 0.74 - 08/24/2018 [facility] 1.35 8:53 AM SYSTEMS APPLICATIONS PROGRAMMING LEAD LABORATORIES - mg/dL [facility] eGFR-Non 24 (L) >=60 08/24/2018 [facility] Black/ mL/min/BS 8:53 AM SYSTEMS APPLICATIONS PROGRAMMING LEAD LABORATORIES - [place] [facility] Comment: ----ADDITIONAL INFORMATION---- Estimated GFR calculated using the 2009 CKD_EPI creatinine equation. eGFR-Black/ 28 (L) >=60 mL/min/BSA 08/24/2018 8:53 [facility] [place] AM SYSTEMS APPLICATIONS PROGRAMMING LEAD LABORATORIES - [facility] Comment: ----ADDITIONAL INFORMATION---- Estimated GFR calculated using the 2009 CKD_EPI creatinine equation. Calcium, Total, S 9.1 8.8 - 10.2 08/24/2018 8:53 AM [facility] mg/dL SYSTEMS APPLICATIONS PROGRAMMING LEAD LABORATORIES - [facility] Glucose, S 126 70 - 140 mg/dL 08/24/2018 8:53 AM [facility] SYSTEMS APPLICATIONS PROGRAMMING LEAD LABORATORIES - [facility] Protein, Total, S 6.5 6.3 - 7.9 g/dL 08/24/2018 8:53 A [facility] LABORATORIES [facility] Albumin, S 4.3 3.5 - 5.0 g/dL 08/24/2018 8:53 AM [facility] Aspartate 18 8 - 48 U/L 08/24/2018 8:53 AM [facility] Aminotransferase (AST), [facility] Alkaline Phosphatase, S 90 40 - 129 U/L 08/24/2018 8: 53 AM [facility] Alanine Aminotransferase 20 7 - 55 U/L 08/24/2018 8:5 3 AM [facility] (ALT), S [facility] Bilirubin, Total, S 0.4 <=1.2 mg/dL 08/24/2018 8:53 AM [facility] Specimen Anatomical Collection Method Collection Time Receive d Time (Source) Location / / Volume Laterality Blood (Blood, 08/24/2018 7:38 AM 08/25/19 7:43 Venous) SYSTEMS APPLICATIONS PROGRAMMING LEAD AM SYSTEMS APPLICATIONS PROGRAMMING LEAD Angélica Granger P.A.-C. LAB BLOOD ADD-ON Performing Organization Address City/[facility] Code Phon e Number [facility] - [address] Bilirubin, Direct (08/24/2018 7:38 AM SYSTEMS APPLICATIONS PROGRAMMING LEAD) P athologist Signature Bilirubin, <0.2 0.0 - 0.3 08/24/2018 [facility] Direct, S mg/dL 8:53 AM [facility] Specimen Anatomical Collection Method Collection Time Receive d Time (Source) Location / / Volume Laterality Blood (Blood, 08/24/2018 7:38 AM 08/25/19 19 7:43 Venous) SYSTEMS APPLICATIONS PROGRAMMING LEAD AM SYSTEMS APPLICATIONS PROGRAMMING LEAD Angélica Granger P.A.-C. LAB BLOOD ADD-ON Performing Organization Address City/[facility] Code Phon e Number [facility] - [address] documented in this encounter Visit Diagnoses Diagnosis Transplant Liver (HCC) - Primary Medication Therapy Usp Not Anticoa gulant Other Specified Diseases Of Liver Screening Examination Prostate Cancer Immunosuppressed State Transplant Liver (HCC) Medication Therapy Usp Not Anticoa gulant Other Specified Diseases Of Liver Immunosuppressed State documented in this encounter Care Teams Child Psychometrist Relationship Specialty Start Date End Date Elsewhere, Pcp PCP - General Family Medicine 07/29/17 documented as of this encounter
--- OUTSIDE RECORDS SUMMARY | 2022-04-13 12:34 | XMS_ITS | Encounter Summary ---
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 [address] [place] [phone] 04/25/2022 Office Visit Otorhinolaryngology Dex Matta APRN, C.N.P., M.S.N. [address] [place] [phone] 05/08/2022 Appointment Laboratory Medicine Angélica Granger P.A.-C. [address] [place] [phone] 05/08/2022 Clinical Admitting/Central Communication Scheduling 05/10/2022 Appointment Radiology Jeremie Rose M.D. [address] [place] [phone] 05/10/2022 Comprehensive Visit Orthopedic Surgery Warner Graves M.D. [address] [place] [phone] 05/22/2022 Appointment Laboratory Medicine Angélica Granger P.A.-C. [address] [place] [phone] 06/05/2022 Appointment Laboratory Medicine Angélica Granger P.A.-C. [address] [place] [phone] 06/19/2022 Appointment Laboratory Medicine Angélica Granger P.A.-C. [address] [place] [phone] 07/03/2022 Appointment Laboratory Medicine Angélica Granger P.A.-C. [address] [place] [phone] 07/17/2022 Appointment Laboratory Medicine Angélica Granger P.A.-C. [address] [place] [phone] 07/31/2022 Appointment Laboratory Medicine Angélica Granger P.A.-C. [address] [place] [phone] 08/14/2022 Appointment Laboratory Medicine Angélica Granger P.A.-C. [address] [place] [phone] 08/28/2022 Appointment Laboratory Medicine Angélica Granger P.A.-C. [address] [place] [phone] documented as of this encounter Visit Diagnoses Not on filedocumented in this encounter Additional Health Concerns Infection Onset Date Last Indicated Resolved Time COVID19 Pending 12/13/2019 12/13/2019 12/14/2019 11:03 AM CDT COVID19 Pending 01/26/2020 01/27/2020 01/28/2020 12:12 AM CDT documented as of this encounter Care Teams Telemedicine Physician Relationship Specialty Start Date End Date Elsewhere, Pcp PCP - General Family Medicine 07/29/17 [facility] - Laboratory Medicine 04/12/[address] [address] documented as of this encounter
--- OUTSIDE RECORDS SUMMARY | 2022-04-13 12:34 | XMS_ITS | Encounter Summary ---
:1955 Author Organization [facility] Address [address] [place] [address] Care Team Providers Name Role Phone Elsewhere, Pcp Primary Care Provider Unavailable Reason for Referral Transplant (Routine) - Closed Specialty Diagnoses / Procedures Referred By Contact Refer red To Contact Transplant Surgery / Salvador Douglas Brigitte Camejo M.D. [address] [place] [address] Referral ID Status Reason Start Date Expiration Date Visits Requ ested Visits Authorized [id number] Closed 08/25/2018 08/25/2019 1 1 QUALITY TECHNICIAN Reason for Visit Outpatient (Routine) - Closed Specialty Diagnoses / Procedures Referred By Contact Refer red To Contact Transplant [place] [address] Referral ID Status Reason Start Date Expiration Date Visits Requ ested Visits Authorized [id number] Closed 10/10/2017 04/08/2018 1 1 Encounter Details Date Type Department Care Team Description 08/25/2018 Office Visit Hao Vela I Depressed Partial Remission (HCC) (Primary Dx); Milka Camejo M.D. 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 - 08/25/2018 10:00 AM CST Date: 08/25/18 Patient: Bruce Singh Date of : 1955 Age: 62 y.o. Gender: male Address: [address] [place] [phone] CHIEF COMPLAINT/PURPOSE OF VISIT Followup for bipolar disorder, anxiety, attentional problems, and alcohol abuse in patient, status post OLT times two, who is now a kidney transplant candidate, not on hemodialysis. ?? HISTORY OF PRESENT ILLNESS Mr. Bruce Singh is a 62-year-old, single, never , male from [place], [place].He underwent his first liver transplantation for cryptogenic cirrhosis in 1998 followed by a second liver transplantation on June 12, 2013, with perioperative michell. His mood stabilized on a combina tion of olanzapine, lamotrigine, and clonazepam. I last met with the patient on May 30, 2015, and he has met with my colleagues at the transplant center intermittently over the past 3 years. I reviewed the patient's medical record and interviewed him individually. ?? #1 Bipolar disorder In the past, when Mr. Singh discontinued use of clonazepam and reduced his dose of lamotrigine from 400 mg daily to 300 mg daily and experienced periods of elevated mood alternating with hypersomia. He later increased his dose back to 400 mg per day and has remained on that dose with mood stability.He denies elevations, which had had in the past, or periods of depression. Her energy level remains good, and he regularly exercises at an athletic club. He will occasionally experience mild lack of motivation. He regularly socializes with friends and also enjoys his space. Therefore, he has chosen not to date for several years. During the winter months, he removes snow from his property and thatof a friend. #2 Alcohol use The patient reports ongoing complete abstinence from alcohol use with last drink over 5-1/2 years ago. He commented, ???the only thing that I miss--is that I had a reputation to joke and be the life ofthe constitution party.?? He explains that he feels more inhibited without alcohol and infrequently will tell jokes in public settings. Nonetheless, he regularly socializes with friends. He denies any urges or cravings to drink. He does not use other substances of abuse. #3 Pre-transplant issues The patients friends will be his primary support system through the time of kidney transplantation in addition to his sister. After his liver transplantations, a group of friends alternated staying with him in [place]. CURRENT MEDICATIONS Current Outpatient Prescriptions Medication Sig Dispense Refill [...] No current facility-administered medications for this visit. MENTAL STATUS: Appearance/Behavior: Casually dressed and well groomed, in no apparent distress. Good eye contact. No abnormal movements noted. Consciousness/Orientation: Alert. Oriented to person, place, date, and time. Cognition/Memory: Demonstrates good recent and remote memory through conversation and history. No overt cognitive problem. Cooperative/Reliability: Cooperative, reliable informant. Mood/Affect: Euthymic mood with full range, mildly anxious affect. Speech/Language: Regular rate, rhythm, volume, and tone. Thought form: Linear, goal-directed, and associations are clear and connected. Thought content: No delusions described or elicited, no other abnormalities of thought content. Perception: No hallucinations, illusions, or other perceptual disturbances. Attention/Concentration: No apparent abnormalities in attention or concentration. Knowledge: Knowledge base within normal limits. Abstraction: Abstraction abilities within normal limits. Judgment: Intact. Insight/Motivation: Fair and improved insight/motivation. Suicidality/Assaultiveness: No suicidality, homicidality, or passive wish. Gait and station: within normal limits. ASSESSMENT \ PLAN #1 Bipolar I disorder, most recent episode mixed, near full remission #2 Alcohol abuse, full sustained remission #3 Anxiety, NOS Since his 2nd liver transplantation in 2012, in the associated posttransplant episode of michell, the patient has maintained complete abstinence from alcohol use. He made a previous reduction in his lamotrigine dose with recurrence of some mood fluctuation. At 400 mg per day, his mood has remained fullystable. I support a plan to continue his current lamotrigine dosing long-term. I also affirmed his complete abstinence from alcohol use and long-term abstinence. I fully support a plan to proceed with kidney transplantation if necessary. I will plan to see the patient back in follow-up when he returnsto the transplant center in 4-12 months. 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 [address] [place] [phone] 04/25/2022 Office Visit Otorhinolaryngology Dex Matta APRN CDemetriusNDemetriusP., M.S.N. [address] [place] [phone] 05/08/2022 Appointment Laboratory Medicine Angélica Granger P.A.-C. [address] [place] [phone] 05/08/2022 Clinical Admitting/Central Communication Scheduling 05/10/2022 Appointment Radiology Jeremie Rose M.D. [address] [place] [phone] 05/10/2022 Comprehensive Visit Orthopedic Surgery Warner Graves M.D. [address] [place] [phone] 05/22/2022 Appointment Laboratory Medicine Angélica Granger P.A.-C. [address] [place] [phone] 06/05/2022 Appointment Laboratory Medicine Angélica Granger P.A.-C. [address] [place] [phone] 06/19/2022 Appointment Laboratory Medicine Angélica Granger P.A.-C. [address] [place] [phone] 07/03/2022 Appointment Laboratory Medicine Angélica Granger P.A.-C. [address] [place] [phone] 07/17/2022 Appointment Laboratory Medicine Angélica Granger P.A.-C. [address] [place] [phone] 07/31/2022 Appointment Laboratory Medicine Angélica Granger P.A.-C. [address] [place] [phone] 08/14/2022 Appointment Laboratory Medicine Angélica Granger P.A.-C. [address] [place] [phone] 08/28/2022 Appointment Laboratory Medicine Angélica Granger P.A.-C. [address] [place] [phone] Scheduled Referrals Name Type Priority Associated Diagnoses Order S chedule Recipient Outpatient Referral Routine Expected : Post-Transplant 11/21/2020 Liver office visit (Approxim ate), (clinic) - Psych Expires: 08/25/2021 documented as of this encounter Visit Diagnoses Diagnosis Bipolar I Depressed Partial Remission (H CC) - Primary Alcohol Mild Use Disorder (Abuse) In Rem ission documented in this encounter Additional Health Concerns Assessment Noted Time PHQ-9 Depression Total Score: 2 08/25/2018 9:45 AM FOOD QUALITY TECHNICIAN documented as of this encounter Care Teams Educational Recruiter Relationship Specialty Start Date End Date Elsewhere, Pcp PCP - General Family Medicine 07/29/17 documented as of this encounter
--- OUTSIDE RECORDS SUMMARY | 2022-04-13 12:34 | XMS_ITS | Encounter Summary ---
:1955 Author Organization [facility] Address [address] [place] [address] Care Team Providers Name Role Phone Elsewhere, Pcp Primary Care Provider Unavailable Reason for Visit Outpatient (Routine) - Closed Specialty Diagnoses / Procedures Referred By Contact Refer red To Contact Transplant Diagnoses Transplant Liver (HCC) Medication Therapy Net Manager Not Anticoagulant Other Specified Diseases Of Liver Immunosuppressed State Angélica Granger P.A.-[facility] [address] [place] [phone] Referral ID Status Reason Start Date Expiration Date Visits Requ ested Visits Authorized [id number] Closed 06/25/2018 06/25/2019 1 1 Encounter Details Date Type Department Care Team Description 08/25/2018 Office Visit Angélica Ching After care Transplant Liver (HCC) (Primary Dx); [facility] 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 - 08/25/2018 3:00 PM CST SUBJECTIVE CHIEF COMPLAINT/REASON FOR VISIT Annual evaluation following transplantation. SUPERVISED BY: Dr. Elias. HISTORY OF PRESENT ILLNESS Mr. 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 With his second allograft, he had a portal vein obstruction, umbilical hernia repair. Other issues include hyperlipidemia and hyperglycemia. He has hypertension and chronic renal insufficiency-stage 4, listed for kidney transplant. From a liver standpoint, he has good graft function with normal biochemistries and synthetic function. Ultrasound shows no concerns. Chronic kidney disease, stage 4 Patient is followed closely by Nephrology, was last seen by Dr. Bowman. His creatinine is 2.7, whichis down from 2.9 last year. His hemoglobin is stable at 11.6. Electrolytes are normal. His chloride is 98, bicarb is 26, anion gap is 13. Hyperlipidemia Controlled on a statin. Hypothyroidism Maintained on Synthroid. TSH is 4.1. History of bipolar disorder with michell and history of anxiety Seen by Dr. Douglas. See his note for further detail. Overall, patient is doing well. History of alcohol use Abstinent and well. Side branch IPMN Ultrasound demonstrated stable pancreatic cysts-perhaps side-branch IPMN. Continue to follow up. Patient has had an excellent year. He has had no major medical issues. He continues to be active, working out daily. He does have some feet arthralgias for which he is going to follow up with Orthopedics tomorrow. Otherwise, continues to have some postnasal drip issues, sinus congestion that he uses Fl onase for. No other questions or concerns at this time. OBJECTIVE PHYSICAL EXAMINATION General: Pleasant-appearing male. He is in no acute distress. Eyes: Pupils are equal, reactive. They are nonicteric. Mouth: No erythema or exudates. Neck: Thyroid negative. Lungs: Clear. Heart: Regular rate and rhythm. Abdomen: He has a small weakening at the trifurcation of his transplant incision, otherwise looks well. No hepatosplenomegaly. No guarding. Extremities: Trace edema. Neuropsych: He is oriented x3. Mood and affect normal. ASSESSMENT / PLAN #1 Mr. 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 Ultrasound shows no concerns. #2 Immunosuppression Maintained on Prograf, current level is 2.5. Continue with current dose. He is also maintained on prednisone at 5 mg daily. Prograf level goal has been between 2 and 4. Patient is also maintained on CellCept 500 mg twice a day to help run his Prograf levels on the lower side because of his chronic renal insufficiency. #3 Chronic kidney disease, stage 4 Followed closely by Transplant Nephrology. He was last seen by Dr. Bowman. His creatinine is stable at 2.7. His electrolytes are normal. Chloride 98, bicarb is 26, anion gap is 13, BUN is 51. The patient is listed for a kidney transplant. Hemoglobin is stable at 11.6. We talked about the importance ofgood hydration and avoiding nonsteroidals as well as good blood pressure control. #4 Hypertension, controlled His BpTRU with 6 readings was 128/77 with a pulse of 51. #5 History of bipolar disorder with michell Followed by [facility], stable, doing well. #6 Hypothyroidism Doing well on Synthroid. Current TSH is normal at 4.1. #7 Impaired fasting glucose Hemoglobin A1c is 6 with a glucose of 126. He will continue to work on dietary changes, exercise, and will continue to monitor this closely. Hemoglobin A1c last year was 5.5, and glucose was 119. He understands he is getting very close to having diabetes, and tight control on monitoring would be beneficial. I would recommend rechecking his hemoglobin A1c and glucose in 3 months. This can be done locally. #8 Preventive services and other studies Patient is up to date on colon screening. PSA is normal at 0.54. He does have a family history of prostate cancer-father. He is followed by his local primary care provider. #9 History of side-branch IPMN Unchanged on ultrasound. Continue to follow. PLAN: We look forward to seeing Mr. Singh at his next annual eval or sooner if problems develop. He willcall with any questions or concerns. He should continue to follow up with Kidney Transplant as directed. He is listed for a kidney at this time. Again, would recommend a hemoglobin A1c and glucose in 3months. Patient will continue to follow labs per protocol. He will call with any questions or concerns. No staff note to follow. E4. 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 [address] [place] [phone] 04/25/2022 Office Visit Otorhinolaryngology Dex Matta APRN CDemetriusNJuan Miguel, M.S.N. [address] [place] [phone] 05/08/2022 Appointment Laboratory Medicine Angélica Granger P.A.-C. [address] [place] [phone] 05/08/2022 Clinical Admitting/Central Communication Scheduling 05/10/2022 Appointment Radiology Jeremie Rose M.D. [address] [place] [phone] 05/10/2022 Comprehensive Visit Orthopedic Surgery Warner Graves M.D. [address] [place] [phone] 05/22/2022 Appointment Laboratory Medicine Angélica Granger P.A.-C. [address] [place] [phone] 06/05/2022 Appointment Laboratory Medicine Angélica Granger P.A.-C. [address] [place] [phone] 06/19/2022 Appointment Laboratory Medicine Angélica Granger P.A.-C. [address] [place] [phone] 07/03/2022 Appointment Laboratory Medicine Angélica Granger P.A.-C. [address] [place] [phone] 07/17/2022 Appointment Laboratory Medicine Angélica Granger P.A.-C. [address] [place] [phone] 07/31/2022 Appointment Laboratory Medicine Angélica Granger P.A.-C. [address] [place] [phone] 08/14/2022 Appointment Laboratory Medicine Angélica Granger P.A.-C. [address] [place] [phone] 08/28/2022 Appointment Laboratory Medicine Angélica Granger P.A.-C. 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
--- OUTSIDE RECORDS SUMMARY | 2022-04-13 12:34 | XMS_ITS | Encounter Summary ---
:1955 Author Organization [facility] Address [address] [place] [address] Care Team Providers Name Role Phone Elsewhere, Pcp Primary Care Provider Unavailable Reason for Referral Transplant (Routine) - Closed Specialty Diagnoses / Procedures Referred By Contact Refer red To Contact Transplant Surgery / Diagnoses Transplant Liver (HCC) Medication Therapy Senior Living Not Anticoagulant Anatoliy Bernardo Rochest [facility] Transplant Bonny.Louie 200 [place] [address] Referral ID Status Reason Start Date Expiration Date Visits Requ ested Visits Authorized [id number] Closed 07/08/2018 07/08/2019 1 1 WORK CATCHER Reason for Visit Reason Onset Date Comments Telephone 07/08/2018 Derm appt Encounter Details Date Type Department Care Team Description 07/08/2018 Clinical Curt Marie, Teleph one ([facility] for latia Cortez) Transplantation and M.S.N., Clinical Regeneration R.N., in [facility] [address] [place] [address] [place] [phone] [facility] [phone] [place] [phone] Social History Tobacco Use Types Packs/Day Years [...] at Date Recorded Male 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 - 07/08/2018 9:15 AM CST Order placed for dermatology for August 25. WORK CATCHER Telephone Encounter - Demetria Cabrera - 07/08/2018 9:02 AM CST Patient would like a skin check when he comes for his Annual 08/25-08/26. Please issue order as he wouldlike a skin check for his scalp lesion and cancer screening. Thank you. WORK CATCHER documented in this encounter Plan of Treatment Upcoming Encounters Date Type Specialty Care Team Description 04/24/2022 Appointment Laboratory Medicine Angélica Granger P.A.-C. [address] [place] [phone] 04/25/2022 Office Visit Otorhinolaryngology Dex Matta APRN, C.NJuan Miguel, M.S.N. [address] [place] [phone] 05/08/2022 Appointment Laboratory Medicine Angélica Granger P.A.-C. [address] [place] [phone] 05/08/2022 Clinical Admitting/Central Communication Scheduling 05/10/2022 Appointment Radiology Jeremie Rose M.D. [address] [place] [phone] 05/10/2022 Comprehensive Visit Orthopedic Surgery Warner Graves M.D. [address] [place] [phone] 05/22/2022 Appointment Laboratory Medicine Angélica Granger P.A.-C. [address] [place] [phone] 06/05/2022 Appointment Laboratory Medicine Angélica Granger P.A.-C. [address] [place] [phone] 06/19/2022 Appointment Laboratory Medicine Angélica Granger P.A.-C. [address] [place] [phone] 07/03/2022 Appointment Laboratory Medicine Angélica Granger P.A.-C. [address] [place] [phone] 07/17/2022 Appointment Laboratory Medicine Angélica Granger P.A.-C. [address] [place] [phone] 07/31/2022 Appointment Laboratory Medicine Angélica Granger P.A.-C. [address] [place] [phone] 08/14/2022 Appointment Laboratory Medicine Angélica Granger P.A.-C. [address] [place] [phone] 08/28/2022 Appointment Laboratory Medicine Angélica Granger P.A.-C. [address] [place] [phone] Scheduled Referrals Name Type Priority Associated Diagnoses Order S chedule Transplant - Outpatient Referral Routine Transplant Liver Expe cted: Dermatology consult (HCC) 08/25/2018 (clinic) Medication Therapy (Approxim ate), Diet Assistant Not Expires: Anticoagulant 12/06/2018 documented as of this encounter Visit Diagnoses Diagnosis Transplant Liver (HCC) - Primary Medication Therapy Diet Assistant Not Anticoa gulant documented in this encounter Care Teams Medical Records Secretary Relationship Specialty Start Date End Date Elsewhere, Pcp PCP - General Family Medicine 07/29/17 documented as of this encounter
--- OUTSIDE RECORDS SUMMARY | 2022-04-13 12:34 | XMS_ITS | Encounter Summary ---
:1955 Author Organization [facility] Address [address] [place] [address] Care Team Providers Name Role Phone Elsewhere, Pcp Primary Care Provider Unavailable Reason for Visit Reason Comments Med Refill Encounter Details Date Type Department Care Team Description 07/15/2018 Refill Curt aguirre [facility], Salvador Camejo, Med Refill Transplantation and Clinical M.D . 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 [address] [place] [phone] 04/25/2022 Office Visit Otorhinolaryngology Dex Matta APRN, C.N.P., M.S.N. [address] [place] [phone] 05/08/2022 Appointment Laboratory Medicine Angélica Granger P.A.-C. [address] [place] [phone] 05/08/2022 Clinical Admitting/Central Communication Scheduling 05/10/2022 Appointment Radiology Jeremie Rose M.D. [address] [place] [phone] 05/10/2022 Comprehensive Visit Orthopedic Surgery Warner Graves M.D. [address] [place] [phone] 05/22/2022 Appointment Laboratory Medicine Angélica Granger P.A.-C. [address] [place] [phone] 06/05/2022 Appointment Laboratory Medicine Angélica Granger P.A.-C. [address] [place] [phone] 06/19/2022 Appointment Laboratory Medicine Angélica Granger P.A.-C. [address] [place] [phone] 07/03/2022 Appointment Laboratory Medicine Angélica Granger P.A.-C. [address] [place] [phone] 07/17/2022 Appointment Laboratory Medicine Angélica Granger P.A.-C. [address] [place] [phone] 07/31/2022 Appointment Laboratory Medicine Angélica Granger P.A.-C. [address] [place] [phone] 08/14/2022 Appointment Laboratory Angélica Royal P.A.-C. [address] [place] [phone] 08/28/2022 Appointment Laboratory Medicine Angélica Granger P.A.-C. [address] [place] [phone] documented as of this encounter Visit Diagnoses Not on filedocumented in this encounter Care Teams Duplicator Punch Set Up Operator Relationship Specialty Start Date End Date Elsewhere, Pcp PCP - General Family Medicine 07/29/17 documented as of this encounter
--- OUTSIDE RECORDS SUMMARY | 2022-04-13 12:34 | XMS_ITS | Encounter Summary ---
:[address] [facility] Address [address] [place] [address] Care Team Providers Name Role Phone Elsewhere, Pcp Primary Care Provider Unavailable Reason for Visit Reason Comments Med Refill Encounter Details Date Type Department Care Team Description 08/04/2018 Refill Division of Gastroenterology in Tracy Marie M.D. Med Refill [place], [place] [address] [place] [address] [address] [place] [phone] (Wo rk) Social History Tobacco Use Types [...] or slept in a longterm (including now)? 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 [address] [place] [phone] 04/25/2022 Office Visit Otorhinolaryngology Dex Matta APRN, C.N.P., M.S.N. [address] [place] [phone] 05/08/2022 Appointment Laboratory Medicine Angélica Granger P.A.-CDemetrius [address] [place] [phone] 05/08/2022 Clinical Admitting/Central Communication Scheduling 05/10/2022 Appointment Radiology Jeremie Rose M.D. [address] [place] [phone] 05/10/2022 Comprehensive Visit Orthopedic Surgery Warner Graves M.D. [address] [place] [phone] 05/22/2022 Appointment Laboratory Medicine Angélica Granger P.A.-CDemetrius [address] [place] [address] [phone] 06/05/2022 Appointment Laboratory Medicine Angélica Granger P.A.-C. [address] [place] [phone] 06/19/2022 Appointment Laboratory Medicine Angélica Granger P.A.-C. [address] [place] [phone] 07/03/2022 Appointment Laboratory Medicine Angélica Granger P.A.-C. [address] [place] [phone] 07/17/2022 Appointment Laboratory Medicine Angélica Granger P.A.-C. [address] [place] [phone] 07/31/2022 Appointment Laboratory Medicine Angélica Granger P.A.-C. [address] [place] [phone] 08/14/2022 Appointment Laboratory Medicine Angélica Granger P.A.-C. [address] [place] [phone] 08/28/2022 Appointment Laboratory Medicine Angélica Granger P.A.-C. [address] [place] [phone] documented as of this encounter Visit Diagnoses Diagnosis Transplant Liver (HCC) documented in this encounter Care Teams Spring Layer Relationship Specialty Start Date End Date Elsewhere, Pcp PCP - General Family Medicine 07/29/17 documented as of this encounter
--- OUTSIDE RECORDS SUMMARY | 2022-04-13 12:34 | XMS_ITS | Encounter Summary ---
:1955 Author Organization [facility] Address [address] [place] [address] Care Team Providers Name Role Phone Elsewhere, Pcp Primary Care Provider Unavailable Encounter Details Date Type Department Care Team Description 06/04/2018 Clinical Communication Theresa Sewell [facility] for M, P.A.-C., M.S. Transplantation and [address] [place] [address] in [facility] [phone] [place] [address] [place], [place] (Work) [phone] Social History Tobacco Use Types Packs/Day Years [...] or slept in a halfway (including now)? 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 [address] [place] [phone] 04/25/2022 Office Visit Otorhinolaryngology Dex Matta APRN, C.N.P., M.S.N. [address] [place] [address] [phone] 05/08/2022 Appointment Laboratory Medicine Angélica Granger P.A.-CDemetrius [address] [place] [phone] 05/08/2022 Clinical Admitting/Central Communication Scheduling 05/10/2022 Appointment Radiology Jeremie Rose M.D. [address] [place] [phone] 05/10/2022 Comprehensive Visit Orthopedic Surgery Warner Graves M.D. [address] [place] [address] [phone] 05/22/2022 Appointment Laboratory Medicine Angélica Granger P.A.-C. [address] [place] [address] [phone] 06/05/2022 Appointment Laboratory Medicine Angélica Granger P.A.-C. [address] [place] [phone] 06/19/2022 Appointment Laboratory Medicine Angélica Granger P.A.-C. [address] [place] [phone] 07/03/2022 Appointment Laboratory Medicine Angélica Granger P.A.-C. [address] [place] [phone] 07/17/2022 Appointment Laboratory Medicine Angélica Granger P.A.-C. [address] [place] [phone] 07/31/2022 Appointment Laboratory Medicine Angélica Granger P.A.-C. [address] [place] [phone] 08/14/2022 Appointment Laboratory Medicine Angélica Granger P.A.-C. [address] [place] [phone] 08/28/2022 Appointment Laboratory Medicine Angélica Granger P.A.-C. [address] [place] [phone] documented as of this encounter Results HLA Class II SAB Antibody Screen (06/29/2018 8:54 AM FLORAL MERCHANDISER) [facility] Time Signature Class II SAB Positive Not Applicable 07/02/2018 [facility] Overall 9:13 AM FLORAL MERCHANDISER LABORATORIES - Result [facility] Class II SAB 81 07/02/2018 [facility] cPRA 9:13 AM FLORAL MERCHANDISER LABORATORIES - [facility] Comment: ----ADDITIONAL INFORMATION---- This PRA is a [facility] calculated PRA. PRA is based on the antigen frequency of the Tissue Typing patient a nd donor population. ??PRA reflects all antibodie s with a normalized value (MFI) above 300. SAB DRB1 Specificity NONE 07/02/2018 9:13 AM FLORAL MERCHANDISER [facility] SAB [id number] Specificity see below 07/02/2018 9: 13 AM [facility] Comment: 53[310] Format: Serologic equivalent/abbreviated specificity [Normalized Value] shown in decreasing o rder. Note: A serologic equivalent/abbreviated specifi city displayed multiple times could indicate different alleles. SAB DQB1 Specificity see below 07/02/2018 9:13 AM [facility] Comment: 6[691], 6[460], 5[377], 6[339] Format: Serologic equivalent/abbreviated specificity [Normalized Value] shown in decreasing o rder. Note: A serologic equivalent/abbreviated specifi city displayed multiple times could indicate different alleles. SAB DPB1 Specificity NONE 07/02/2018 9:13 AM FLORAL MERCHANDISER [facility] Comment: ----ADDITIONAL INFORMATION---- Method: [facility]ine[facility] Performing Laboratory CLIA# [id number] Specimen Anatomical Collection Method Collection Time Receive d Time (Source) Location / / Volume Laterality Blood (Blood, 06/29/2018 8:54 AM 06/30/19 19 9:36 Venous) FLORAL MERCHANDISER AM FLORAL MERCHANDISER Resulting Agency Comment Mailed In Specimen Patricia Bender P.A.-C., M.S. LAB HLA ORDERABLES Performing Organization Address City/State/ZIP Code Phon e Number [facility]ORATORIES - [address] [place], [place] [address] [facility] HLA Class I SAB Antibody Screen (06/29/2018 8:54 AM FLORAL MERCHANDISER) [facility] Method Time Signature Class I SAB Positive Not Applicable 07/02/2018 [facility] Overall 7:43 AM FLORAL MERCHANDISER LABORATORIES - Result [facility] Class I SAB 7 07/02/2018 [facility] cPRA 7:43 AM FLORAL MERCHANDISER [facility] Comment: ----ADDITIONAL INFORMATION---- This PRA is a [facility] calculated PRA. PRA is based on the antigen frequency of the Tissue Typing patient a nd donor population. ??PRA reflects all antibodie s with a normalized value (MFI) above 300. SAB A Specificity see below 07/02/2018 7:43 AM [facility] Comment: 29[386] Format: Serologic equivalent/abbreviated specificity [Normalized Value] shown in decreasing o rder. Note: A serologic equivalent/abbreviated specifi city displayed multiple times could indicate different alleles. SAB B Specificity see below 07/02/2018 7:43 AM FLORAL MERCHANDISER [facility] Comment: 54[595] Format: Serologic equivalent/abbreviated specificity [Normalized Value] shown in decreasing o rder. Note: A serologic equivalent/abbreviated specifi city displayed multiple times could indicate different alleles. SAB C Specificity NONE 07/02/2018 7:43 AM [facility] Comment: ----ADDITIONAL INFORMATION---- Method: [facility]inex Performing Laboratory CLIA# [id number] Specimen Anatomical Collection Method Collection Time Receive d Time (Source) Location / / Volume Laterality Blood (Blood, 06/29/2018 8:54 AM 06/30/19 19 9:36 Venous) FLORAL MERCHANDISER AM FLORAL MERCHANDISER Resulting Agency Comment Mailed In Specimen Patricia Bender P.A.-C., M.S. LAB HLA ORDERABLES Performing Organization Address City/State/ZIP Code Phon e Number [facility] - [address] [place] [address] [facility] documented in this encounter Visit Diagnoses Diagnosis Pretransplant Recipient Evaluation Exam - Primary Chronic Kidney Disease documented in this encounter Care Teams Corn Sheller Operator Relationship Specialty Start Date End Date Elsewhere, Pcp PCP - General Family Medicine 07/29/17 documented as of this encounter
--- OUTSIDE RECORDS SUMMARY | 2022-04-13 12:34 | XMS_ITS | Encounter Summary ---
:1955 Author Organization [facility] Address [address] [place] [address] Care Team Providers Name Role Phone Elsewhere, Pcp Primary Care Provider Unavailable Encounter Details Date Type Department Care Team Description 08/24/2018 Hospital Encounter Department of Angélica Granger Transpl ant Liver (HCC); Radiology, Kd Stern P.A.-C. 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 [address] [place] [phone] 04/25/2022 Office Visit Otorhinolaryngology Dex Matta APRN CDemetriusNJuan Miguel, M.S.N. [address] [place] [phone] 05/08/2022 Appointment Laboratory Medicine Angélica Granger P.A.-C. [address] [place] [phone] 05/08/2022 Clinical Admitting/Central Communication Scheduling 05/10/2022 Appointment Radiology Jeremie Rose M.D. [address] [place] [phone] 05/10/2022 Comprehensive Visit Orthopedic Surgery Warner Graves M.D. [address] [place] [phone] 05/22/2022 Appointment Laboratory Medicine Angélica Granger P.A.-C. [address] [place] [phone] 06/05/2022 Appointment Laboratory Medicine Angélica Granger P.A.-C. [address] [place] [phone] 06/19/2022 Appointment Laboratory Medicine Angélica Granger P.A.-C. [address] [place] [phone] 07/03/2022 Appointment Laboratory Medicine Angélica Granger P.A.-C. [address] [place] [phone] 07/17/2022 Appointment Laboratory Medicine Angélica Granger P.A.-C. [address] [place] [phone] 07/31/2022 Appointment Laboratory Medicine Angélica Granger P.A.-C. [address] [place] [phone] 08/14/2022 Appointment Laboratory Medicine Angélica Granger P.A.-C. [address] [place] [address] [phone] 08/28/2022 Appointment Laboratory Medicine Angélica Granger P.A.-C. [address] [place] [phone] documented as of this encounter Procedures Procedure Name Priority Date/Time Associated Comments Diagnosis US LIVER RAD - Routine 08/24/2018 10:17 Transplant Liver Result s for this TRANSPLANT (most inpatients AM VICE PRESIDENT OF CONTRACTS (HCC) procedure are in and all Medication the results outpatients) Therapy Care Home section. Not Anticoagulan t Other Specified Diseases Of Live r Immunosuppressed State documented in this encounter Results US Liver Transplant (08/24/2018 10:17 AM VICE PRESIDENT OF CONTRACTS) Anatomical Region Laterality Modality Abdomen, Ultrasound RST LOS, Ultrasound ARZ LOS, Ultrasound FLA N/A Ultrasound LOS Specimen (Source) Anatomical Collection Method Collection Time Re ceived Time Location / / Volume Laterality 08/24/2018 10:34 AM VICE PRESIDENT OF CONTRACTS Impressions 08/24/2018 11:14 AM VICE PRESIDENT OF CONTRACTS IMPRESSION: 1. Normal-appearing hepatic allograft wi th patent vasculature. 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 2. Stable pancreatic cysts, perhaps side branch IPMN. 3. Parenchymal thinning and increased ec hogenicity of both kidneys compatible with changes of chronic renal disease. Narrative 08/24/2018 11:14 AM VICE PRESIDENT OF CONTRACTS EXAM: US LIVER TRANSPLANT Exam performed with [...] with changes of chronic renal disease. Angélica HEREDIA US PROCEDURES documented in this encounter Visit Diagnoses Diagnosis Transplant Liver (HCC) Medication Therapy Home Service Consultant Not Anticoa gulant Other Specified Diseases Of Liver Immunosuppressed State documented in this encounter Care Teams Background Check Coordinator Relationship Specialty Start Date End Date Elsewhere, Pcp PCP - General Family Medicine 07/29/17 documented as of this encounter
--- OUTSIDE RECORDS SUMMARY | 2022-04-13 12:34 | XMS_ITS | Encounter Summary ---
:1955 Author Organization [facility] Address [address] [place] [address] Care Team Providers Name Role Phone Elsewhere, Pcp Primary Care Provider Unavailable Encounter Details Date Type Department Care Team Description 06/08/2018 Hospital Encounter Department of Patricia Bender Pre transplant Recipient Evaluation Exam; Laboratory MEdmundo, M.S. 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 Maintenance lamoTRIgine (LaMICtal) Take 1 tablet by 0 017 07/15/2018 200 mg tablet mouth 2 (two) times a day. levothyroxine Take 1 tablet by 0 08/07/201709/14 [...] predniSONE (DELTASONE) 5 TAKE 1 TABLET BY 100 tablet 0 05/0608/04/2018 mg tablet MOUTH DAILY tacrolimus (PROGRAF) 0.5 TAKE 2 CAPSULES BY 400 capsule 0 08/04/2018 mg capsuleIndications: MOUTH EVERY 12 Transplant Liver [...] Laboratory Medicine Angélica Granger P.A.-C. [address] [place] [address] 04/25/2022 Office Visit Otorhinolaryngology Dex Matta APRN C.N.P., M.S.N. [address] [place] [phone] 05/08/2022 Appointment Laboratory Medicine Angélica Granger P.A.-C. [address] [place] [phone] 05/08/2022 Clinical Admitting/Central Communication Scheduling 05/10/2022 Appointment Radiology Jeremie Rose M.D. [address] [place] [phone] 05/10/2022 Comprehensive Visit Orthopedic Surgery Warner Graves M.D. [address] [place] [phone] 05/22/2022 Appointment Laboratory Medicine Angélica Granger P.A.-C. [address] [place] [phone] 06/05/2022 Appointment Laboratory Medicine Angélica Granger P.A.-C. [address] [place] [phone] 06/19/2022 Appointment Laboratory Medicine Angélica Granger P.A.-C. [address] [place] [phone] 07/03/2022 Appointment Laboratory Medicine Angélica Granger P.A.-C. [address] [place] [phone] 07/17/2022 Appointment Laboratory Medicine Angélica Granger P.A.-C. [address] [place] [phone] 07/31/2022 Appointment Laboratory Medicine Angélica Granger P.A.-C. [address] [place] [address] 08/14/2022 Appointment Laboratory Medicine Angélica Granger P.A.-C. [address] [place] [phone] 08/28/2022 Appointment Laboratory Medicine Angélica Granger P.A.-C. [address] [place] [phone] documented as of this encounter Procedures Procedure Name Priority Date/Time Associated Diagnosis Comme nts HLA CLASS II SAB Routine 06/29/2018 8:54 AM Pretransplant Resu lts for this ANTIBODY SCREEN ED TEACHER Recipient Evaluation proc edure are in Exam the results Chronic Kidney Disease secti on. HLA CLASS I SAB Routine 06/29/2018 8:54 AM Pretransplant Resul ts for this ANTIBODY SCREEN ED TEACHER Recipient Evaluation proc edure are in Exam the results Chronic Kidney Disease secti on. documented in this encounter Results HLA Class II SAB Antibody Screen (06/29/2018 8:54 AM ED TEACHER) [facility] Method Time Signature Class II SAB Positive Not Applicable 07/02/2018 [facility] Overall 9:13 AM ED TEACHER LABORATORIES - Result [facility] Class II SAB 81 07/02/2018 [facility] cPRA 9:13 AM ED TEACHER LAB[facility] Comment: ----ADDITIONAL INFORMATION---- This PRA is a [facility] Tiss ue Typing Laboratory calculated PRA. PRA is based on the antigen frequency of the Tissue Typing patient a nd donor population. ??PRA reflects all antibodie s with a normalized value (MFI) above 300. SAB DRB1 Specificity NONE 07/02/2018 9:13 AM ED TEACHER [facility] SAB [id number] Specificity see below 07/02/2018 9: 13 AM ED TEACHER [facility] Comment: 53[310] Format: Serologic equivalent/abbreviated specificity [Normalized Value] shown in decreasing o rder. Note: A serologic equivalent/abbreviated specifi city displayed multiple times could indicate different alleles. SAB DQB1 Specificity see below 07/02/2018 9:13 AM [facility] Comment: 6[691], 6[460], 5[377], 6[339] Format: Serologic equivalent/abbreviated specificity [Normalized Value] shown in decreasing o rder. Note: A serologic equivalent/abbreviated specifi city displayed multiple times could indicate different alleles. SAB DPB1 Specificity NONE 07/02/2018 9:13 AM [facility] [place] Comment: ----ADDITIONAL INFORMATION---- Method: Luminex Performing Laboratory CLIA# [id number] Specimen Anatomical Collection Method Collection Time Receive d Time (Source) Location / / Volume Laterality Blood (Blood, 06/29/2018 8:54 AM 06/30/19 9:36 Venous) ED TEACHER AM ED TEACHER Resulting Agency Comment Mailed In Specimen Patricia Bender P.A.-C., M.S. LAB HLA ORDERABLES Performing Organization Address City/State/ZIP Code Phon e Number [facility] - [address] [place] [phone] 05 [facility] HLA Class I SAB Antibody Screen (06/29/2018 8:54 AM [facility]) [facility] Method Time Signature Class I SAB Positive Not Applicable 07/02/2018 [facility] Overall 7:43 AM [facility] LABORATORIES - Result [facility] [place] Class I SAB 7 07/02/2018 [facility] cPRA 7:43 AM [facility] Comment: ----ADDITIONAL INFORMATION---- This PRA is a [facility] Tiss ue Typing Laboratory calculated PRA. PRA is based on the antigen frequency of the Tissue Typing patient a nd donor population. ??PRA reflects all antibodie s with a normalized value (MFI) above 300. SAB A Specificity see below 07/02/2018 7:43 AM [facility] [place] Comment: 29[386] Format: Serologic equivalent/abbreviated specificity [Normalized Value] shown in decreasing o rder. Note: A serologic equivalent/abbreviated specifi city displayed multiple times could indicate different alleles. SAB B Specificity see below 07/02/2018 7:43 AM [facility] Comment: 54[595] Format: Serologic equivalent/abbreviated specificity [Normalized Value] shown in decreasing o rder. Note: A serologic equivalent/abbreviated specifi city displayed multiple times could indicate different alleles. SAB C Specificity NONE 07/02/2018 7:43 AM ED TEACHER [facility] Comment: ----ADDITIONAL INFORMATION---- Method: Luminex Performing Laboratory CLIA# [id number] Specimen Anatomical Collection Method Collection Time Receive d Time (Source) Location / / Volume Laterality Blood (Blood, 06/29/2018 8:54 AM 06/30/19 19 9:36 Venous) ED TEACHER AM ED TEACHER Resulting Agency Comment Mailed In Specimen Patricia Bender P.A.-C., M.S. LAB HLA ORDERABLES Performing Organization Address City/State/ZIP Code Phon e Number [facility] - [address] [place] [address] [facility] documented in this encounter Visit Diagnoses Diagnosis Pretransplant Recipient Evaluation Exam Chronic Kidney Disease documented in this encounter Care Teams English Language Learner Teacher Relationship Specialty Start Date End Date Elsewhere, Pcp PCP - General Family Medicine 07/29/17 documented as of this encounter
--- OUTSIDE RECORDS SUMMARY | 2022-04-13 12:34 | XMS_ITS | Encounter Summary ---
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 [address] [place] [phone] 04/25/2022 Office Visit Otorhinolaryngology Dex Matta APRN, C.N.P., M.S.N. [address] [place] [phone] 05/08/2022 Appointment Laboratory Medicine Angélica Granger P.A.-C. [address] [place] [phone] 05/08/2022 Clinical Admitting/Central Communication Scheduling 05/10/2022 Appointment Radiology Jeremie Rose M.D. [address] [place] [phone] 05/10/2022 Comprehensive Visit Orthopedic Surgery Warner Graves M.D. [address] [place] [phone] 05/22/2022 Appointment Laboratory Medicine Angélica Granger P.A.-C. [address] [place] [phone] 06/05/2022 Appointment Laboratory Medicine Angélica Granger P.A.-C. [address] [place] [phone] 06/19/2022 Appointment Laboratory Medicine Angélica Granger P.A.-C. [address] [place] [phone] 07/03/2022 Appointment Laboratory Medicine Angélica Granger P.A.-C. [address] [place] [phone] 07/17/2022 Appointment Laboratory Medicine Angélica Granger P.A.-C. [address] [place] [phone] 07/31/2022 Appointment Laboratory Medicine Angélica Granger P.A.-C. [address] [place] [phone] 08/14/2022 Appointment Laboratory Medicine Angélica Granger P.A.-C. [address] [place] [address] 08/28/2022 Appointment Laboratory Medicine Angélica Granger P.A.-C. [address] [place] [phone] documented as of this encounter Procedures Procedure Name Priority Date/Time Associated Comments Diagnosis TACROLIMUS LEVEL, B Routine 06/29/2018 8:45 AM Re sults for this GREIGE GOODS EXAMINER procedure are i n the results section. documented in this encounter Results (ABNORMAL) Tacrolimus, B (06/29/2018 8:45 AM GREIGE GOODS EXAMINER) athologist Signature Tacrolimus, B 2.8 (L) 5.0-15.0 07/02/2018 [facility] (T[place]) 11:20 AM GREIGE GOODS EXAMINER [address] ng/mL [facility] Comment: ----ADDITIONAL [...] (Source) Location / / Volume Laterality Blood 06/29/2018 8:45 AM 9 7:52 GREIGE GOODS EXAMINER AM GREIGE GOODS EXAMINER Resulting Agency Comment Mailed In Specimen Vanessa Parra APRN, C.N.P. LAB BLOOD NON ADD-ON Performing Organization Address City/State/ZIP Code Phon e Number [facility] [address] [place], [place] [address] [facility] documented in this encounter Visit Diagnoses Not on filedocumented in this encounter Care Teams Sanitary Landfill Operator Relationship Specialty Start Date End Date Elsewhere, Pcp PCP - General Family Medicine 07/29/17 documented as of this encounter
--- OUTSIDE RECORDS SUMMARY | 2022-04-13 12:34 | XMS_ITS | Encounter Summary ---
:1955 Author Organization [facility] Address [address] [place] [address] Care Team Providers Name Role Phone Elsewhere, Pcp Primary Care Provider Unavailable Encounter Details Date Type Department Care Team Description 08/25/2018 Hospital Encounter Department of Padmini [facility] Perez P.A.-C. 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 [address] [place] [address] 04/25/2022 Office Visit Otorhinolaryngology Dex Matta APRN, C.N.P., M.S.N. [address] [place] [phone] 05/08/2022 Appointment Laboratory Medicine Angélica Granger P.A.-C. [address] [place] [phone] 05/08/2022 Clinical Admitting/Central Communication Scheduling 05/10/2022 Appointment Radiology Jeremie Rose M.D. [address] [place] [phone] 05/10/2022 Comprehensive Visit Orthopedic Surgery Warner Graves M.D. [address] [place] [phone] 05/22/2022 Appointment Laboratory Medicine Angélica Granger P.A.-C. [address] [place] [address] [phone] 06/05/2022 Appointment Laboratory Medicine Angélica Granger P.A.-C. [address] [place] [phone] 06/19/2022 Appointment Laboratory Medicine Angélica Granger P.A.-C. [address] [place] [phone] 07/03/2022 Appointment Laboratory Medicine Angélica Granger P.A.-C. [address] [place] [phone] 07/17/2022 Appointment Laboratory Medicine Angélica Granger P.A.-C. [address] [place] [address] 07/31/2022 Appointment Laboratory Medicine Angélica Granger P.A.-C. [address] [place] [phone] 08/14/2022 Appointment Laboratory Medicine Angélica Granger P.A.-C. [address] [place] [phone] 08/28/2022 Appointment Laboratory Medicine Angélica Granger P.A.-C. [address] [place] [phone] documented as of this encounter Procedures Procedure Name Priority Date/Time Associated Comments Diagnosis DX FOOT ANKLE RAD - Routine 08/25/2018 12:57 Pain Right Ankle Resul ts for this RIGHT 3 VIEWS (most inpatients PM SHOVEL ENGINEER And Joints Right proced ure are in and all Foot the results outpatients) section. documented in this encounter Results DX Foot Ankle Right 3 Views (08/25/2018 12:57 PM SHOVEL ENGINEER) Anatomical Region Laterality Modality Lower Extremity, Foot, Ankle, Musculoskeletal RST LOS, Right Digital Radiography Musculoskeletal ARZ LOS, Muskuloskeletal FLA LOS Specimen (Source) Anatomical Collection Method Collection Time Re ceived Time Location / / Volume Laterality 08/25/2018 1:16 PM SHOVEL ENGINEER Impressions 08/25/2018 1:18 PM SHOVEL ENGINEER IMPRESSION: ??Hindfoot valgus and pes planus. 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 Achill es and plantar calcaneal spurs. Arterial calcifications. Narrative 08/25/2018 1:18 PM SHOVEL ENGINEER EXAM: ??DX FOOT ANKLE RIGHT 3 VIEWS Procedure Note Moises Styles M.D. - 08/25/2018Forma tting of this note might be different from the original. EXAM: DX FOOT ANKLE RIGHT 3 VIEWS IMPRESSION: Hindfoot valgus and pes plan us. 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 Achill es and plantar calcaneal spurs. Arterial calcifications. Padmini Hudson P.A.-C. IMG DIAGNOSTIC IMAGING DAREN RAMIRES documented in this encounter Visit Diagnoses Diagnosis Pain Right Ankle And Joints Right Foot documented in this encounter Additional Health Concerns Assessment Noted Time PHQ-9 Depression Total Score: 2 08/25/2018 9:45 AM SHOVEL ENGINEER documented as of this encounter Care Teams Briar Cutter Relationship Specialty Start Date End Date Elsewhere, Pcp PCP - General Family Medicine 07/29/17 documented as of this encounter
--- OUTSIDE RECORDS SUMMARY | 2022-04-13 12:35 | XMS_ITS | Encounter Summary ---
:1955 Author Organization [facility] Address [address] [place] [address] Care Team Providers Name Role Phone Elsewhere, Pcp Primary Care Provider Unavailable Reason for Visit Appointment Request (Routine) - Closed Specialty Diagnoses / Procedures Referred By Contact Refer red To Contact Dermatology Referral ID Status Reason Start Date Expiration Date Visits Requ ested Visits Authorized [id number] Closed 04/23/2018 04/23/2019 1 Encounter Details Date Type Department Care Team Description 04/29/2018 Office Visit Department of Kandace James, Keratosis Actinic (Primary Dx); Dermatology in [facility] 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 - 04/29/2018 11:00 AM CST REFERRED BY No ref. 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 Suzanne Contreras ([phone]) Patient seen and discussed with supervising hematology oncology consultant, Dr. Suzanne Contreras, who evaluated the patient and concurs with the assessment and plan. HISTORY OF PRESENT ILLNESS Mr. Bruce Singh is a 62 y.o. male who presents today for a full skin cancer screening examination. The patient has a history of a liver transplant in 1989 and 2012 and is on chronic immunosuppressive therapy with CellCept, Prograf and prednisone. He is doing well from this standpoint. He has nohistory of skin cancers, but does note that he has had some pre cancers treated with Efudex in the past. Today, he points out a lesion on the vertex of his scalp that has been there for quite some time. Hestates that this becomes very scaly. Otherwise, there are no cutaneous concerns today. He does spend quite a bit of time in the sun riding his motorcycle. He does try to be diligent with sun protection and uses an SPF 100, but does state that he fails to reapply this. Allergies Allergen Reactions ??? Cefixime Diarrhea ??? Ciprofloxacin Other (see comments) Tendon pain ??? Citalopram Other (see comments) michell ??? Erythromycin Base Other (see comments) Due to medications ??? Olanzapine Other (see comments) Joint pain ??? Quetiapine Edema Muscle pain and swelling PAST MEDICAL HISTORY Negative for skin cancer PHYSICAL EXAM General: Awake, alert, in no acute distress, and with appropriate affect. Eyes: No scleral injection or icterus. No eyelid abnormalities. Lymph: No lower extremity edema. Skin: I have examined the scalp, face, neck, chest, abdomen, back, bilateral upper extremities, and bilateral lower extremities. Iverson skin type II. Dermatoheliosis is noted over the sun-exposed areas. There are multiple brown, waxy, stuck on appearing papules scattered throughout consistent with seborrheic keratoses. On the vertex of the scalp there is a hyperkeratotic papule. On the right cheek there is a pink macule with overlying scale consistent with an actinic keratosis. There are multiple brown macules scattered throughout consistent with benign-appearing nevi. IMPRESSION/REPORT/PLAN #1 Skin cancer screening examination #2 Immunosuppressed state Reviewed increased risk of skin cancer secondary to immunosuppression. Sun protection and sun avoidance were reviewed with the patient. Educational materials were provided regarding skin self-examination, the warning signs and symptoms of skin cancer, and the proper use of sunscreens. I would recommend a full skin cancer screening examination with an appropriately trained clinician every year. #3 Multiple nevi The ABCDE criteria for melanoma was reviewed with the patient. None of the patient's nevi reach the clinical threshold for biopsy. I recommend continued sun protection, self-skin examinations, and observation. Should any of the patient's nevi change in size, color, texture, or shape or develop symptoms such as itching or bleeding, I recommend an immediate return visit for reassessment. #4 Actinic keratosis x2 CONSENT Discussed the risks, benefits, alternatives, and [...] should return for biopsy or further evaluation. #5 Seborrheic keratosis The benign nature of the skin lesion(s) was discussed with the patient. No treatment is required. I recommend continued observation. Should symptoms or changes develop related to this condition, I would recommend a return visit for reassessment. PATIENT EDUCATION Ready to learn. No apparent learning barriers were identified. Learning preferences include listening. Explained diagnosis and treatment plan; patient/guardian of patient expressed understanding of thecontent. IR DEPARTMENT MANAGER documented in this encounter Plan of Treatment Upcoming Encounters Date Type Specialty Care Team Description 04/24/2022 Appointment Laboratory Medicine Angélica Granger P.A.-C. [address] [place] [phone] 04/25/2022 Office Visit Otorhinolaryngology Dex Matta APRN, C.N.P., M.S.N. [address] [place] [phone] 05/08/2022 Appointment Laboratory Medicine Angélica Granger P.A.-C. [address] [place] [phone] 05/08/2022 Clinical Admitting/Central Communication Scheduling 05/10/2022 Appointment Radiology Jeremie Rose M.D. [address] [place] [phone] 05/10/2022 Comprehensive Visit Orthopedic Surgery Warner Graves M.D. [address] [place] [phone] 05/22/2022 Appointment Laboratory Medicine Angélica Granger P.A.-C. [address] [place] [phone] 06/05/2022 Appointment Laboratory Medicine Angélica Granger P.A.-C. [address] [place] [phone] 06/19/2022 Appointment Laboratory Medicine Angélica Granger P.A.-C. [address] [place] [phone] 07/03/2022 Appointment Laboratory Medicine Angélica Granger P.A.-C. [address] [place] [phone] 07/17/2022 Appointment Laboratory Medicine Angélica Granger P.A.-C. [address] [place] [phone] 07/31/2022 Appointment Laboratory Medicine Angélica Granger P.A.-C. [address] [place] [phone] 08/14/2022 Appointment Laboratory Medicine Angélica Granger P.A.-C. [address] [place] [phone] 08/28/2022 Appointment Laboratory Medicine Angélica Granger P.A.-C. [address] [place] [phone] documented as of this encounter Visit Diagnoses Diagnosis Keratosis Actinic - Primary Immunosuppressed State Keratosis Seborrheic Nev[place] Multiple Dermatoheliosis documented in this encounter Care Teams Licensed Insurance Agent Relationship Specialty Start Date End Date Elsewhere, Pcp PCP - General Family Medicine 07/29/17 documented as of this encounter
--- OUTSIDE RECORDS SUMMARY | 2022-04-13 12:35 | XMS_ITS | Encounter Summary ---
:1955 Author Organization [facility] Address [address] [place] [address] Care Team Providers Name Role Phone Elsewhere, Pcp Primary Care Provider Unavailable Encounter Details Date Type Department Care Team Description 04/29/2018 Office Visit Department of Jaxson Churchill [place] ed Otorhinolaryngology in [place] Camejo, Right (Primary Dx) [place], [place] MThomas, M.P.H. [address] [place] [address] [address] [place] [address] [place], [place] [phone] Social History Tobacco Use Types Packs/Day Years [...] or relatives? How often do you attend latter-day or More than 4 times per year 12/15/2021 jewish services? Do you belong to any clubs or No 12/15/2021 organizations such as latter-day groups, unions, fraternal or athletic groups, or [...] or slept in a fdc (including now)? 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 - 04/29/2018 2:30 PM CST CHIEF COMPLAINT/PURPOSE OF VISIT: Right ear plugging and popping. HISTORY OF PRESENT ILLNESS: Mr. Singh is a very pleasant 62 y.o. male with a history of eustachian tube dysfunction requiring multiple myringotomy and tympanostomy tube placements in the past. Over the past few weeks, he had a plugged sensation in his right ear. This has resolved and he is left with a popping/crackling sensation. He denies otalgia, otorrhea, or a change in hearing. ROS: Ten system review of systems performed and reviewed with patient. Pertinent ROS noted in HPI. The following portions of the patient's history were reviewed and updated as appropriate: allergies,current medications, family history, medical history, social history, surgical history and problem list. PHYSICAL EXAM: General: Alert, interactive 62 y.o. year old male, in no acute distress. Ears: Examination of the bilateral ears demonstrates normal-shaped pinnae. The left external auditory canal is clear and tympanic membrane is normal. The right external auditory canal was occluded by cerumen which was removed with alligator forceps under the otomicroscope. After debridement, tympanic membrane was visualized and found to be intact and mobile on pneumatic otoscopy. Middle ear appeared clear without evidence of effusion. ASSESSMENT/PLAN: #1 Cerumen Impacted Right Right ear cerumen was cleared. His previously placed PE tube has extruded and the TM has healed without granulation or cholesteatoma. No sign of middle ear effusion. He will follow up on a PRN basis. EM SOFTWARE DEVELOPER documented in this encounter Plan of Treatment Upcoming Encounters Date Type Specialty Care Team Description 04/24/2022 Appointment Laboratory Medicine Angélica Granger P.A.-C. [address] [place] [phone] 04/25/2022 Office Visit Otorhinolaryngology Dex Matta APRN, C.N.P., M.S.N. [address] [place] [phone] 05/08/2022 Appointment Laboratory Medicine Angélica Granger P.A.-C. [address] [place] [phone] 05/08/2022 Clinical Admitting/Central Communication Scheduling 05/10/2022 Appointment Radiology Jeremie Rose M.D. [address] [place] [phone] 05/10/2022 Comprehensive Visit Orthopedic Surgery Warner Graves M.D. [address] [place] [phone] 05/22/2022 Appointment Laboratory Medicine Angélica Granger P.A.-C. [address] [place] [phone] 06/05/2022 Appointment Laboratory Medicine Angélica Granger P.A.-C. [address] [place] [phone] 06/19/2022 Appointment Laboratory Medicine Angélica Granger P.A.-C. [address] [place] [phone] 07/03/2022 Appointment Laboratory Medicine Angélica Granger P.A.-C. [address] [place] [phone] 07/17/2022 Appointment Laboratory Medicine Angélica Granger P.A.-C. [address] [place] [phone] 07/31/2022 Appointment Laboratory Medicine Angélica Granger P.A.-C. [address] [place] [phone] 08/14/2022 Appointment Laboratory Medicine Angélica Granger P.A.-C. [address] [place] [phone] 08/28/2022 Appointment Laboratory Medicine Angélica Granger P.A.-C. [address] [place] [phone] documented as of this encounter Visit Diagnoses Diagnosis Cerumen Impacted Right - Primary documented in this encounter Care Teams Gummed Tape Press Operator Relationship Specialty Start Date End Date Elsewhere, Pcp PCP - General Family Medicine 07/29/17 documented as of this encounter
--- OUTSIDE RECORDS SUMMARY | 2022-04-13 12:35 | XMS_ITS | Encounter Summary ---
:1955 Author Organization [facility] Address [address] [place] [address] Care Team Providers Name Role Phone Elsewhere, Pcp Primary Care Provider Unavailable Encounter Details Date Type Department Care Team Description 03/25/2018 Clinical Communication [facility] M, C.Ph.T. 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 - 03/25/2018 9:31 AM CDT Recipient Pre-Transplant Review Document: Organ: Kidney __x__ Liver ____ Heart ____ Lung ____ Pancreas ____ BMT ____ Insurance Carrier: Medicare A & B 3C, [employer] [address] Demographic Information: _x___ Confirmed information is up to date, including address and insurance. Insurance Benefits: __x__ Confirmed understanding of the authorization and referral process, including contracted or non-contracted, including the Prior Written Authorization process, and financial implications based on prior authorization determination. __x__ Confirmed understanding of differences in general medical insurance and transplant benefits. Confirmed number of eligible evaluations under patients plan. __x__ Confirmed patient's coordination of benefits: deductible, co-insurance, co-pay, or [id number] maximum. __x__ Patient understands that this is a general quote of coverage for benefits at the time of this evaluation and is not a guarantee of payment. All claims are subject to review at the time they are received in accordance with plan language and eligibility. Medicare Benefits: __x__ Financial worker also provided verbal education regarding End Stage Renal Disease Medicare. Wereviewed the benefits of hospital Part A, medical Part B, and 80% immunosuppressant coverage throughPart B when Medicare effective at the time of transplant. Patient understands there would be a monthly premium for Part B. __x__ There is a 30-month coordination of benefits with any employer group health plan, where the employer plan would pay first and Medicare would pay second. Medicare ends after 36 months unless the patient is greater than age 65 or permanently disabled. __x__ Patient understands that by enrolling in Medicare Part A at minimum now, s/he will be eligiblefor immunosuppressant coverage from Part B at age 65 or if deemed disabled later. __x__ Confirmed patient has Medicare due to age, disability, ESRD. __x__ Patient understands coordination of benefits with current coverage and to contact the appropriate constitution party with anticipated changes. Estimate of Services: _x__ Confirmed understanding of potential financial responsibilities and transplant anticipated expenses. __x__ Transplant care and post-transplant medications are life-long (general information; patient can obtain list of immunosuppressants (Medications) from the nurse coordinator. __x__ Discussed out of pocket expenses for follow-up care, including testing, routine care, and/or complications from surgery. __x__ Handed patient Financial Assistance Policy. (OO5663-23) PATIENT EDUCATION Education Material: __x__ Provided patient with an educational guide (Planning for Your Transplant: A Financial Guide [id number]) to assist in outlining financial responsibilities related to transplant services and transplant care; highlighted fundraising and resource contacts in educational packet. Education Outcome and miscellaneous concerns: __x__ Reviewed with patient Transplant Financial Services contact information to communicate any future insurance questions, changes or updates. Confirmed per review patient was able to teach back and verbalized understanding., patient needs little repetition, patient did not retain educational information, patient needs additional reinforcement of education provided. _x___ Advised recipient to notify [facility] with any insurance updates or changes; failure to do so may impede transplant eligibility. __x__ Discussed financial concerns related to ability to pay for services and post-transplant care. Including, Financial Assistance policy if financial hardship was identified. _x___ Provided Transplant Financial business card with our contact phone number of [phone] if patient were to have additional questions. Patient had no concerns documented in this encounter Plan of Treatment Upcoming Encounters Date Type Specialty Care Team Description 04/24/2022 Appointment Laboratory Medicine Angélica Granger P.A.-C. [address] [place] [phone] 04/25/2022 Office Visit Otorhinolaryngology Dex Matta APRN CDemetriusNDemetriusPDemetrius, M.S.N. [address] [place] [phone] 05/08/2022 Appointment Laboratory Medicine Angélica Granger P.A.-C. [address] [place] [phone] 05/08/2022 Clinical Admitting/Central Communication Scheduling 05/10/2022 Appointment Radiology Jeremie Rose M.D. [address] [place] [phone] 05/10/2022 Comprehensive Visit Orthopedic Surgery Warner Graves M.D. [address] [place] [phone] 05/22/2022 Appointment Laboratory Medicine Angélica Granger P.A.-C. [address] [place] [phone] 06/05/2022 Appointment Laboratory Medicine Angélica Granger P.A.-C. [address] [place] [phone] 06/19/2022 Appointment Laboratory Medicine Angéliac Granger P.A.-C. [address] [place] [phone] 07/03/2022 Appointment Laboratory Medicine Angélica Granger P.A.-C. [address] [place] [phone] 07/17/2022 Appointment Laboratory Medicine Angélica Granger P.A.-C. [address] [place] [phone] 07/31/2022 Appointment Laboratory Medicine Angélica Granger P.A.-C. [address] [place] [phone] 08/14/2022 Appointment Laboratory Medicine Angélica Granger P.A.-C. [address] [place] [phone] 08/28/2022 Appointment Laboratory Medicine Angélica Granger P.A.-C. [address] [place] [phone] documented as of this encounter Visit Diagnoses Not on filedocumented in this encounter Additional Health Concerns Assessment Noted Time PHQ-9 Depression Total Score: 5 03/24/2018 9:15 PM CDT documented as of this encounter Care Teams Sheet Metal Former Relationship Specialty Start Date End Date Elsewhere, Pcp PCP - General Family Medicine 07/29/17 documented as of this encounter
--- OUTSIDE RECORDS SUMMARY | 2022-04-13 12:35 | XMS_ITS | Encounter Summary ---
:1955 Author Organization [facility] Address [address] [place] [address] Care Team Providers Name Role Phone Elsewhere, Pcp Primary Care Provider Unavailable Reason for Visit Reason Comments UNOS (RST) UNOS Listing UNOS (RST) ABO Verification Encounter Details Date Type Department Care Team Description 04/07/2018 Documentation Curt Bhardwaj, RACHELL S (RST) (UNOS Center for Patricia Azevedo, R.NDemetrius, Listing); U NOS (RST) Transplantation and C.C.T.C. 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 - 04/07/2018 10:30 AM CDT Patient listed for kidney transplant [facility] on 04/07/2018. Patient met minimal listing requirements. Blood type O positive, dates 06/10/2013 at 7:30 and 06/15/2013 at 13:18 Patient notified. Patient verbalized understanding. Diagnosis:Cyclosporin Nephrotoxicity Consent date: 03/25/2018 Education/Teachback date: 03/27/2018 Karnofsky: 80 Specialty consult roll threader operator date: 03/25/2018 Surgeon date: 03/27/2018 Nurse Coordinator date: 03/27/2018 Biometrics Experimentalist date: 03/25/2018 Pharmacist date: 03/26/2018 Operations Lead Date: 03/26/2018 Dialysis Date: na GFR date: 03/25/2018 eGFR by cystatin C 16 mL/min Hgt. Date: 03/25/2018 Wgt Date: 03/25/2018 Colonoscopy date: 08/27/2017 Lab Date: 03/25/2018 Fix, Kavita Hauser R.N., C.C.T.C. - 04/07/2018 10:30 AM CDT Verified blood type in UNOS. Blood type is O positive on 06/15/2013 at 13:18 and on 06/10/2013 at 07:30. Each ABO entry was performed in adherence to the program's protocol. eGFR: 03/25/2018 eGFR 16 mL/min by Cystatin C documented in this encounter Plan of Treatment Upcoming Encounters Date Type Specialty Care Team Description 04/24/2022 Appointment Laboratory Medicine Angélica Granger P.A.-C. [address] [place] [phone] 04/25/2022 Office Visit Otorhinolaryngology Dex Matta, RAMONA, C.N.P., M.S.N. [address] [place] [address] [phone] 05/08/2022 Appointment Laboratory Medicine Angélica Granger P.A.-C. [address] [place] [phone] 05/08/2022 Clinical Admitting/Central Communication Scheduling 05/10/2022 Appointment Radiology Jeremie Rose M.D. [address] [place] [phone] 05/10/2022 Comprehensive Visit Orthopedic Surgery Warner Graves M.D. [address] [place] [phone] 05/22/2022 Appointment Laboratory Medicine Angélica Granger P.A.-C. [address] [place] [phone] 06/05/2022 Appointment Laboratory Medicine Angélica Granger P.A.-C. [address] [place] [phone] 06/19/2022 Appointment Laboratory Medicine Angélica Granger P.A.-C. [address] [place] [phone] 07/03/2022 Appointment Laboratory Medicine Angélica Granger P.A.-C. [address] [place] [phone] 07/17/2022 Appointment Laboratory Medicine Angélica Granger P.A.-C. [address] [place] [phone] 07/31/2022 Appointment Laboratory Medicine Angélica Granger P.A.-C. [address] [place] [phone] 08/14/2022 Appointment Laboratory Medicine Angélica Granger P.A.-C. [address] [place] [phone] 08/28/2022 Appointment Laboratory Medicine Angélica Granger P.A.-C. [address] [place] [phone] documented as of this encounter Visit Diagnoses Not on filedocumented in this encounter Care Teams Powder Loader Relationship Specialty Start Date End Date Elsewhere, Pcp PCP - General Family Medicine 07/29/17 documented as of this encounter
--- OUTSIDE RECORDS SUMMARY | 2022-04-13 12:35 | XMS_ITS | Encounter Summary ---
:1955 Author Organization [facility] Address [address] [place] [address] Care Team Providers Name Role Phone Elsewhere, Pcp Primary Care Provider Unavailable Reason for Visit Reason Comments Med Refill Encounter Details Date Type Department Care Team Description 05/05/2018 Refill Division of Nephrology and Herrm Mercedez casanova M.D. Med Refill Hypertension in [place], [facility] [address] [place] [phone] [place] [address] [place], [place] [address] [phone] Social History Tobacco Use Types Packs/Day Years [...] or slept in a retirement (including now)? 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 - 05/06/2018 4:29 PM CST Prescription forwarded to provider for approval. Outside RN protocol due to no refills last prescription. TECHNICIAN documented in this encounter Plan of Treatment Upcoming Encounters Date Type Specialty Care Team Description 04/24/2022 Appointment Laboratory Medicine Angélica Granger, P.A.-CDemetrius [address] [place] [phone] 04/25/2022 Office Visit Otorhinolaryngology Dex Matta APRN, C.N.P., M.S.N. [address] [place] [phone] 05/08/2022 Appointment Laboratory Medicine Angélica Granger P.A.-C. [address] [place] [phone] 05/08/2022 Clinical Admitting/Central Communication Scheduling 05/10/2022 Appointment Radiology Jeremie Rose M.D. [address] [place] [phone] 05/10/2022 Comprehensive Visit Orthopedic Surgery Warner Graves M.D. [address] [place] [phone] 05/22/2022 Appointment Laboratory Medicine Angélica Granger P.A.-C. [address] [place] [phone] 06/05/2022 Appointment Laboratory Medicine Angélica Granger P.A.-C. [address] [place] [phone] 06/19/2022 Appointment Laboratory Medicine Angélica Granger P.A.-C. [address] [place] [phone] 07/03/2022 Appointment Laboratory Medicine Angélica Granger P.A.-C. [address] [place] [phone] 07/17/2022 Appointment Laboratory Medicine Angélica Granger P.A.-C. [address] [place] [phone] 07/31/2022 Appointment Laboratory Medicine Angélica Granger P.A.-C. [address] [place] [phone] 08/14/2022 Appointment Laboratory Angélica Royal P.A.-C. [address] [place] [phone] 08/28/2022 Appointment Laboratory Medicine Angélica Granger P.A.-C. [address] [place] [phone] documented as of this encounter Visit Diagnoses Not on filedocumented in this encounter Care Teams Motor Vehicle Light Assembler Relationship Specialty Start Date End Date Elsewhere, Pcp PCP - General Family Medicine 07/29/17 documented as of this encounter
--- OUTSIDE RECORDS SUMMARY | 2022-04-13 12:35 | XMS_ITS | Encounter Summary ---
:1955 Author Organization [facility] Address [address] [place] [address] Care Team Providers Name Role Phone Elsewhere, Pcp Primary Care Provider Unavailable Reason for Visit Transplant (Routine) - Closed Specialty Diagnoses / Procedures Referred By Contact Refer red To Contact Transplant Surgery / Diagnoses Chronic Kidney Disease Stage 4 Glomerular Filtration Rate 15-29 (HCC) [facility]DD[facility] [address] [place] [phone] Referral ID Status Reason Start Date Expiration Date Visits Requ ested Visits Authorized [id number] Closed 02/23/2018 02/23/2019 1 1 Encounter Details Date Type Department Care Team Description 03/27/2018 Comprehensive Visit Neo Richmond M.D. [address] [place] [phone] Pretransplant Recipient Evaluation Exam (Primary Dx); Codie Stevenson M.D., Ph.D. 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 - 03/27/2018 10:30 AM CDT PRE-TRANSPLANT RECIPIENT EVALUATION PSYCHIATRY SUBJECTIVE CHIEF COMPLAINT / REASON FOR VISIT Pretransplant kidney recipient evaluation. S/P liver transplant X two (1997 and 2012) Referral Source: Neo Bowman M.D. HISTORY OF PRESENT ILLNESS Mr. Singh is a 62-year-old, single, never , retired male, status post two liver transplantation, first in 1997, secondary to autoimmune hepatitis and the second, in 2012 secondary to trauma; and Stage V chronic kidney disease. He is now being evaluated for kidney transplant candidacy. I reviewed Mr. Singh's medical records at [facility] and interviewed him individually. Mr. Singh has a history of bipolar affective disorder type I, stable for many years. He was last seen by Dr. Truong Connor on August 26, 2017, and prior by Dr. Deidra Pacheco in August 2016, at that time,he was stable in regards to his mental health. He continues to take Lamotrigine 400 mg a day for bipolar disorder. Most recent blood lamotrigine level was 5.8 (2.5 - 15.0 MCG/ML) on 08/26/16. Mr. Singh continues doing well, and indicates no mental health concerns today. He denies any interim drinking. States that alcohol has never been an issue. Other issues include a log-term complaint of poor attention and memory complains, likely multifactorial, including history of TBI. Mr. Singh has been followed by neurology, and was most recently seenby Dr.Christopher Rico on 02/16/2018. ?? Type of transplant proposed: kidney Reaction to diagnosis of advanced organ disease: accepting Reaction to process of transplant: accepting History of adherence with medications: adherent History of adherence with medical appointments: adherent History of adherence with diet and exercise: adherent Awareness of the lifelong need for immunosuppression Yes Primary and back-up caregiver support: friends and his sister Knowledge and understanding of the medical illness process: YES Knowledge and understanding of the transplant process: YES Willingness/desire for transplant: YES Quality of life: acceptable Limited in daily activities: YES Average pain in last week (0-10): 3 (joints) REVIEW OF SYSTEMS Psychiatric Issues Psychiatric diagnosis: Bipolar disorder (two manic episodes were medication related: one triggered by antidepressant, another (with psychotic symptoms) by steroids; currently on lamotrigine 200 mg twice a day; stable mood). Most recent blood lamotrigine level was 5.8 which is normal (reference 2.5 - 15.0 MCG/ML) on 08/26/16 Psych Review of Systems Bipolar symptoms: Positive for bipolar disorder. Borderline Personality Disorder symptoms: Negative for Borderline Personality Disorder. Eating Disorder symptoms: Negative for an eating disorder. Generalized Anxiety Disorder symptoms: Negative for Generalized Anxiety Disorder. Positive for difficulty with concentration. Major Depression symptoms: Negative for Major Depression. Positive for fatigue and difficulty with concentration. Negative for suicidal plan. OCD symptoms: Negative for obsessions and compulsions. Panic Disorder symptoms: Negative for Panic Disorder. Positive for shortness of breath. Persistent Depressive Disorder symptoms: Negative for Persistent Depressive Disorder. Positive for difficulty with concentration and fatigue. Psychosis symptoms: Negative for psychosis. Negative for psychosis. PTSD symptoms: Negative for Post-traumatic Stress Disorder. Social Anxiety Disorder symptoms: Negative for fear of social situation. Suicide/self injury/homicide concerns: Negative for suicidal ideation. The patient has access to firearms. Negative for non-suicidal self-injury. Negative for homicidal ideation. Answers for HPI/ROS submitted by the patient on 02/10/2018 No eye issues: Yes Sinus congestion: Yes Swelling in the legs or feet: Yes Coughing up mucus (phlegm): Yes No GI issues: Yes Pain or stiffness in the joints: Yes Joint swelling: Yes No skin issues: Yes Blackouts: Yes No neurologic issues: Yes No mental health issues: Yes Bruises/bleeds easily: Yes Frequent urination: Yes Rating Scales: PHQ-9 Total Score (max 27): 0 (03/27/18 1025) NIDHI-7 Total Score (max 21): 0 (03/27/18 1025) CAGE AUDIT 0 Tolerance: NO Excess time spent in use: NO Loss of control: NO Use despite MD rec to stop: NO Last alcohol use in 2011 post liver transplant per transplant team recommendation History Smoking Status ??? Never Smoker Smokeless Tobacco ??? Never Used Use of nicotine replacement: NO No past medical history on file. Past [...] 1 TABLET BY MOUTH DAILY 100 tablet 0 ??? amoxicillin (AMOXIL) 500 mg capsule [...] for allergies; mostly for fall allergies ??? ipratropium (ATROVENT) 42 mcg (0.06 %) nasal spray Administer 2 sprays into affected nostril(s) 4 (four) times a day as needed for rhinitis. Maintenance ??? lamoTRIgine (LaMICtal) 200 mg tablet Take 1 tablet by mouth 2 (two) times a day. ??? levothyroxine (SYNTHROID, LEVOTHROID) 25 mcg tablet [...] 1 TABLET BY MOUTH DAILY 100 tablet 0 ??? tacrolimus (PROGRAF) 0.5 mg capsule TAKE 2 CAPSULES BY MOUTH EVERY 12 HOURS 400 capsule 0 ??? torsemide (DEMADEX) 10 mg tablet Take 3 tablets by mouth daily. Restarted on 03-26-17. Maintenance. ??? traZODone (DESYREL) 100 mg tablet Take 1 tablet by mouth at bedtime as needed for sleep. Maintenance No current facility-administered medications for this visit. Family History Problem Relation Age of Onset ??? Coronary artery disease Mother ??? Heart attack Mother ??? Heart attack Father ??? Heart disease Father ??? Heart disease Mother Social History Social History ??? Marital status: [...] History Narrative ??? No narrative on file Developmental History Supportive parents: YES PTSD screen: at age 4 he experienced trauma - 7 years old sister from complications of tonsillectomy; no PTSD symptoms, but felt his tendency to keep emotional distance form most people might be related to that loss. 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 Marital History Number of Marriages: never Children:NO Spiritual Life Source of support: YES Attendance in mag community: YES Support Auto Tester from friends: YES OBJECTIVE MENTAL STATUS EXAM Appearance/Behavior: Well groomed, in no apparent distress. Good eye contact. No abnormal movements noted. Gait and station: within normal limits. Consciousness/Orientation: Alert. Oriented to person, place, date, and time. Cognition/Memory: Demonstrates good recent and remote memory through conversation and history. Cooperative/Reliability: Cooperative, reliable informant. Mood/Affect: Subdued mood with restricted range affect. Speech/Language: Regular rate, rhythm, volume, and tone. Thought form: Linear, goal-directed, and associations are clear and connected. Thought content: No delusions described or elicited, no other abnormalities of thought content. Perception: No hallucinations, illusions, or other perceptual disturbances. Attention/Concentration: a log-term complaint of poor attention and short term memory/ No major abnormalities noted during the interview. Knowledge: Knowledge base within normal limits. Abstraction: Abstraction abilities within normal limits. Judgment: Intact. Insight/Motivation: Good insight/motivation. Suicidality/Assaultiveness: No suicidality, homicidality, or passive wish. ASSESSMENT / PLAN DSMV Diagnoses #1 Pretransplant kidney recipient evaluation #2 Bipolar disorder, Type 1, by history, currently euthymic Mr. Singh has a history of bipolar affective disorder type I, which has been stable for many years, and he maintains abstinence from alcohol. I have no reservation for his listing for kidney transplantation from a mental health standpoint. I ordered blood lamotrigine level that he can have during his next visit in april. PACT Score: 2/4 Recommendation to selection conference: Accept documented in this encounter Plan of Treatment Upcoming Encounters Date Type Specialty Care Team Description 04/24/2022 Appointment Laboratory Medicine Angélica Granger P.A.-C. [address] [place] [phone] 04/25/2022 Office Visit Otorhinolaryngology Dex Matta APRN, C.N.P., M.S.N. [address] [place] [phone] 05/08/2022 Appointment Laboratory Medicine Angélica Granger P.A.-C. [address] [place] [phone] 05/08/2022 Clinical Admitting/Central Communication Scheduling 05/10/2022 Appointment Radiology Jeremie Rose M.D. [address] [place] [phone] 05/10/2022 Comprehensive Visit Orthopedic Surgery Warner Graves M.D. [address] [place] [phone] 05/22/2022 Appointment Laboratory Medicine Angélica Granger P.A.-C. [address] [place] [phone] 06/05/2022 Appointment Laboratory Medicine Angélica Granger P.A.-C. [address] [place] [phone] 06/19/2022 Appointment Laboratory Medicine Angélica Granger P.A.-C. [address] [place] [phone] 07/03/2022 Appointment Laboratory Medicine Angélica Granger P.A.-C. [address] [place] [phone] 07/17/2022 Appointment Laboratory Medicine Angélica Granger P.A.-C. [address] [place] [phone] 07/31/2022 Appointment Laboratory Medicine Angélica Granger P.A.-C. [address] [place] [phone] 08/14/2022 Appointment Laboratory Medicine nAgélica Granger P.A.-C. [address] [place] [phone] 08/28/2022 Appointment Laboratory Medicine Angélica Granger P.A.-C. [address] [place] [phone] documented as of this encounter Results Lamotrigine Level (04/28/2018 7:11 AM VEST PRESSER) athologist Signature Lamotrigine, S 4.4 2.5 - 15.0 04/28/2018 [facility] mcg/mL 3:43 PM VEST PRESSER [facility] Comment: ----ADDITIONAL INFORMATION---- This test was developed and its performa nce characteristics determined by [facility] in a manner consistent with CLIA requirements. This test has not been cleared or approved by the U.S. Mer d and Drug Administration. Specimen Anatomical Collection Method Collection Time Receive d Time (Source) Location / / Volume Laterality Blood (Blood, 04/28/2018 7:11 AM 04/28/20 18 Venous) VEST PRESSER 10:21 AM VEST PRESSER Codie Lam M.D., Ph.D. LAB BLOOD NON ADD-ON Performing Organization Address City/State/ZIP Code Phon e Number [facility] [address] [place], [place] [address] documented in this encounter Visit Diagnoses Diagnosis Pretransplant Recipient Evaluation Exam - Primary Chronic Kidney Disease Stage 4 Glomerula r Filtration Rate 15-29 (HCC) Medication Therapy Top Collar Maker Not Anticoa gulant Bipolar I Disorder (HCC) documented in this encounter Care Teams Water Quality Specialist Relationship Specialty Start Date End Date Elsewhere, Pcp PCP - General Family Medicine 07/29/17 documented as of this encounter
--- OUTSIDE RECORDS SUMMARY | 2022-04-13 12:35 | XMS_ITS | Encounter Summary ---
:1955 Author Organization [facility] Address [address] [place] [address] Care Team Providers Name Role Phone Elsewhere, Pcp Primary Care Provider Unavailable Reason for Visit Reason Comments Med Refill Encounter Details Date Type Department Care Team Description 05/05/2018 Refill Division of Gastroenterology in Jaxson Reyes M.D. Med Refill [place], [place] [address] [place] [address] [address] [place] [phone] (Wo rk) Social History Tobacco Use Types [...] or slept in a intermediate (including now)? 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 [address] [place] [phone] 04/25/2022 Office Visit Otorhinolaryngology Dex Matta APRN, C.N.P., M.S.N. [address] [place] [phone] 05/08/2022 Appointment Laboratory Medicine Angélica Granger P.A.-CDemetrius [address] [place] [phone] 05/08/2022 Clinical Admitting/Central Communication Scheduling 05/10/2022 Appointment Radiology Jeremie Rose M.D. [address] [place] [phone] 05/10/2022 Comprehensive Visit Orthopedic Surgery Warner Graves M.D. [address] [place] [phone] 05/22/2022 Appointment Laboratory Medicine Angélica Granger P.A.-CDemetrius [address] [place] [phone] 06/05/2022 Appointment Laboratory Medicine Angélica Granger P.A.-C. [address] [place] [phone] 06/19/2022 Appointment Laboratory Medicine Angélica Granger P.A.-C. [address] [place] [phone] 07/03/2022 Appointment Laboratory Medicine Angélica Granger P.A.-C. [address] [place] [phone] 07/17/2022 Appointment Laboratory Medicine Angélica Granger P.A.-C. [address] [place] [phone] 07/31/2022 Appointment Laboratory Medicine Angélica Granger P.A.-C. [address] [place] [phone] 08/14/2022 Appointment Laboratory Medicine Angélica Granger P.A.-C. [address] [place] [phone] 08/28/2022 Appointment Laboratory Medicine Angélica Granger P.A.-C. [address] [place] [phone] documented as of this encounter Visit Diagnoses Not on filedocumented in this encounter Care Teams Recovery Unit Operator Relationship Specialty Start Date End Date Elsewhere, Pcp PCP - General Family Medicine 07/29/17 documented as of this encounter
--- OUTSIDE RECORDS SUMMARY | 2022-04-13 12:35 | XMS_ITS | Encounter Summary ---
:1955 Author Organization [facility] Address [address] [place] [address] Care Team Providers Name Role Phone Elsewhere, Pcp Primary Care Provider Unavailable Encounter Details Date Type Department Care Team Description 03/27/2018 Comprehensive Visit Department of Antoni Bowman M.D. 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 - 03/27/2018 8:00 AM CDT Physical Therapy Pre-Transplant Outpatient Evaluation and Treatment By co-signing this note, the provider certifies the therapy being provided to this patient is reasonable and necessary for the diagnosis or treatment of this patient. SUBJECTIVE Patient's Name: Bruce Singh Referring Provider: Neo Bowman M.D. Reason for referral: Pre-transplant evaluation Rehab Diagnosis: 1. Pretransplant Recipient Evaluation Exam 2. Chronic Kidney Disease Stage 4 Glomerular Filtration Rate 15-29 (HCC) Payor: [employer] [facility] / Plan: [facility] / Product Type: Cost Share / PERTINENT MEDICAL / SURGICAL HISTORY: Patient Active Problem List Diagnosis ??? Cirrhosis Cryptogenic (HCC) ??? Bipolar I Disorder (HCC) ??? Transplant Liver (HCC) ??? Chronic Kidney Disease NOS ??? Chronic Kidney Disease Stage 3 Glomerular Filtration Rate 30 To 59 ??? Bipolar I Depressed Full Remission (HCC) ??? Immunosuppressed State (HCC) ??? Stenosis Renal Artery (HCC) ??? Hypertension ??? Chronic Kidney Disease Stage 4 Glomerular Filtration Rate 15-29 (HCC) ??? Bipolar I Depressed Partial Remission (HCC) ??? Complaint Memory ??? Spells Neurological (HCC) ??? Pretransplant Recipient Evaluation Exam Past Surgical History: Procedure Laterality Date ??? [...] HERNIA REPAIR N/A 09/03/2013 >Umbilical hernia repair. Bruce Singh is a 62 y.o. male who presents to outpatient physical therapy for pre-transplant evaluation. His symptoms consist of some right hip pain from golfing. He has been working with physical therapy for the past 3 weeks with some improvement in his pain. Precautions/Restrictions: None Occupational Profile: Level of [place]: Independent with all activities of daily living and mobility Exercise/Activity Level: Uses bike and elliptical for aerobic exercise, also performs strength training with free weights Patient/Caregiver Goals: Remain active Previous Treatments: Physical Therapy Total Visit Count: Visit count could not be calculated. Make sure you are using a visit which is associated with an episode. Visit Count since last G-Codes: Visit count could not be calculated. Make sure you are using a visitwhich is associated with an episode. PT Next Certification Date: 06/25/18 OBJECTIVE REVIEW OF SYSTEMS Neurological ROS: negative PHYSICAL EXAM Fall Assessment: Fall in the last 12 months: No Are you fearful of falling?: No Measures - Tools Special Tests: Pre-transplant Screen FRAILTY INDEX: BMI: 27.9 Simulation Developer Strength score: 36.5 kg 0 = does not meet criteria 5-meter Walk score: 3.8 seconds 0 = does not meet criteria Exhaustion: 1 = meets criteria Weight Loss: 0 = does not meet criteria Physical Activity: 0 = does not meet criteria Total Fried Frailty Score: 1-2 = pre-frail SHORT PHYSICAL PERFORMANCE BATTERY (SPPB) Balance Testing Iifz-qy-Omet Stand: 1 = Hold for 10 sec Semi tandem Stand: 1 = Hold for 10 sec Tandem Stand: 2 = Held for 10 sec Balance Test Score: 4 Walk Test Score: 1.32 m/s 4 = greater than or equal to .83 m/sec Repeated Chair Stands Score: 9.38 4 = less than or equal to [...] onset of frailty. Home Exercise Program/Education: None Assessment Clinical Impression: Patient is best categorized as not frail based on the Short Physical Performance Battery and FrailtyIndex. Patient technically would be pre-frail based on his answer to one fatigue question but he otherwise demonstrates no strength or mobility issues. Patient demonstrates no functional impairments atthis time. Patient will continue with a home exercise routine independently in addition to exercise program provided by local therapy for his right hip pain. Rehab Potential: Mr. Singh has Excellent potential to achieve established physical therapy goals within the time frame outlined below, provided he actively participates in his physical therapy treatment plan and home program. Complicating Factors: Comorbidities: See past medical history Personal Factors: None Clinical Presentation: Stable Examination elements: 1-2 Clinical Decision Making Complexity: Low: no complicating factors, 1-2 eval elements, stable clinical presentation Functional Goals and Timeframes: PT Goal #1: Patient will understand energy conservation strategies to help manage fatigue but keep active. PT Goal #1 Date: 03/27/18 Plan Mr. Singh was educated regarding evaluative [...] Treatment Plan: Start of Plan of Care: 03/27/2018 Number of Visits: up to 1 visits Frequency: One time visit Duration: PT Duration: One time visit Plan: Plan: Plan of care initiated Treatment interventions may include: Therapeutic exercise Heydi Eid P.T., D.P.T. Time Spent with Patient PT Evaluation (min): 15 min Therapeutic Exercise (min): 5 min Time Calculation Total Timed Units (min): 5 min Total Treatment Time (min): 20 min Functional G-code Worksheet Functional Assessment Tool Used: SPPB Functional Limitation: Mobility: Walking and moving around Mobility: Walking and Moving Around Current Status (G8978): 0 percent impaired, limited or restricted Mobility: Walking and Moving Around Goal Status (G8979): 0 percent impaired, limited or restricted Mobility: Walking and Moving Around Discharge Status (G8980): 0 percent impaired, limited or restricted documented in this encounter Plan of Treatment Upcoming Encounters Date Type Specialty Care Team Description 04/24/2022 Appointment Laboratory Medicine Angélica Granger P.A.-C. [address] [place] [phone] 04/25/2022 Office Visit Otorhinolaryngology Dex Matta APRN, C.N.P., M.S.N. [address] [place] [phone] 05/08/2022 Appointment Laboratory Medicine Angélica Granger P.A.-C. [address] [place] [phone] 05/08/2022 Clinical Admitting/Central Communication Scheduling 05/10/2022 Appointment Radiology Jeremie Rose M.D. [address] [place] [phone] 05/10/2022 Comprehensive Visit Orthopedic Surgery Warner Graves M.D. [address] [place] [phone] 05/22/2022 Appointment Laboratory Medicine Angélica Granger P.A.-C. [address] [place] [phone] 06/05/2022 Appointment Laboratory Medicine Angélica Granger P.A.-C. [address] [place] [phone] 06/19/2022 Appointment Laboratory Medicine Angélica Granger P.A.-C. [address] [place] [phone] 07/03/2022 Appointment Laboratory Medicine Angélica Granger P.A.-C. [address] [place] [phone] 07/17/2022 Appointment Laboratory Medicine Angélica Granger P.A.-C. [address] [place] [phone] 07/31/2022 Appointment Laboratory Medicine Angélica Granger P.A.-C. [address] [place] [phone] 08/14/2022 Appointment Laboratory Medicine Angélica Granger P.A.-C. [address] [place] [phone] 08/28/2022 Appointment Laboratory Medicine Angélica Granger P.A.-C. [address] [place] [phone] documented as of this encounter Visit Diagnoses Diagnosis Pretransplant Recipient Evaluation Exam - Primary Chronic Kidney Disease Stage 4 Glomerula r Filtration Rate 15-29 (HCC) documented in this encounter Care Teams Time Study Engineer Relationship Specialty Start Date End Date Elsewhere, Pcp PCP - General Family Medicine 07/29/17 documented as of this encounter
--- OUTSIDE RECORDS SUMMARY | 2022-04-13 12:35 | XMS_ITS | Encounter Summary ---
:1955 Author Organization [facility] Address [address] [place] [address] Care Team Providers Name Role Phone Elsewhere, Pcp Primary Care Provider Unavailable Reason for Visit Transplant (Routine) - Closed Specialty Diagnoses / Procedures Referred By Contact Refer red To Contact Transplant Surgery / Diagnoses Pretransplant Recipient Evaluation Exam Chronic Kidney Disease Stage 4 Glomerular Filtration Rate 15-29 (HCC) [facility] [address] [place] [phone] Referral ID Status Reason Start Date Expiration Date Visits Requ ested Visits Authorized [id number] Closed 02/16/2018 02/16/2019 1 1 Encounter Details Date Type Department Care Team Description 03/27/2018 Nurse Only Curt aguirre [facility] Neo henson M.D. [address] [place] [phone] for Transplantation and Patricia Pinto R.N., C.C.T.C. [address] [place] [phone] Clinical Regeneration in [place], [place] [address] [place] [phone] Social History Tobacco Use Types Packs/Day [...] 12/15/2021 organizations such as adventism groups, unions, fra[employer]ense [employer] or athletic groups, or school groups? 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 - 03/27/2018 2:00 PM CDT Met with Bruce Singh for evaluation and education as a potential kidney recipient. Patient did attend the kidney/pancreas education class. Informed consent to continue with the evaluation for kidney transplant evaluation was obtained. Mr. Bruce Singh is a 62 y.o. 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 Immunizations were reviewed. If the patient does identify potential living donors, the recipient wasencouraged to notify the donors to call their [...] are exchanged between the pairs. The patient agreed to participate in the KPD program. Discussions occurred regarding some of the side-effects associated with residential immunosuppression and indicated that some patients would need insulin after the transplant. Following my explanations the patient was eager to proceed. It was discussed with the patient that their information will be presented to our multidisciplinary Selection Conference for final approval. Placement on the UNOS list was discussed. KDPI consent was reviewed and signed. The patient agreed to participate in the KDPI program. Learning needs assessed with no barriers identified. All questions answered. Patient verbalized understanding and was given my card and instructed to contact me with further questions or concerns. Modified Karnofsky performance status scale:80: Normal activity with effort (e.g., preemptive transplant [...] Laboratory Medicine Angélica Granger P.A.-C. [address] [place] [phone] 04/25/2022 Office Visit Otorhinolaryngology Dex Matta APRN, C.N.P., M.S.N. [address] [place] [phone] 05/08/2022 Appointment Laboratory Medicine Angélica Granger P.A.-CDemetrius [address] [place] [phone] 05/08/2022 Clinical Admitting/Central Communication Scheduling 05/10/2022 Appointment Radiology Jeremie Rose M.D. [address] [place] [phone] 05/10/2022 Comprehensive Visit Orthopedic Surgery Warner Graves M.D. [address] [place] [phone] 05/22/2022 Appointment Laboratory Medicine Angélica Granger P.A.-C. [address] [place] [phone] 06/05/2022 Appointment Laboratory Medicine Angélica Granger P.A.-C. [address] [place] [phone] 06/19/2022 Appointment Laboratory Medicine Angélica Granger P.A.-C. [address] [place] [phone] 07/03/2022 Appointment Laboratory Medicine Angélica Granger P.A.-C. [address] [place] [phone] 07/17/2022 Appointment Laboratory Medicine Angélica Granger P.A.-C. [address] [place] [phone] 07/31/2022 Appointment Laboratory Medicine Angélica Granger P.A.-C. [address] [place] [phone] 08/14/2022 Appointment Laboratory Medicine Angélica Granger P.A.-C. [address] [place] [phone] 08/28/2022 Appointment Laboratory Medicine Anéglica Granger P.A.-C. [address] [place] [phone] documented as of this encounter Visit Diagnoses Diagnosis Pretransplant Recipient Evaluation Exam Chronic Kidney Disease Stage 4 Glomerula r Filtration Rate 15-29 (HCC) documented in this encounter Care Teams Circular Head Saw Operator Relationship Specialty Start Date End Date Elsewhere, Pcp PCP - General Family Medicine 07/29/17 documented as of this encounter
--- OUTSIDE RECORDS SUMMARY | 2022-04-13 12:35 | XMS_ITS | Encounter Summary ---
:1955 Author Organization [facility] Address [address] [place] [address] Care Team Providers Name Role Phone Elsewhere, Pcp Primary Care Provider Unavailable Reason for Visit Transplant (Routine) - Closed Specialty Diagnoses / Procedures Referred By Contact Refer red To Contact Transplant Surgery / Diagnoses Pretransplant Recipient Evaluation Exam Chronic Kidney Disease Stage 4 Glomerular Filtration Rate 15-29 (HCC) [facility] M.DDemetrius [address] [place] [phone] Referral ID Status Reason Start Date Expiration Date Visits Requ ested Visits Authorized [id number] Closed 02/16/2018 02/16/2019 1 1 Encounter Details Date Type Department Care Team Description 03/26/2018 Comprehensive Visit Neo Richmond M.D. [address] [place] [address] [phone] Pretransplant Recipient Evaluation Exam; Milka for Petra Calero, ROSARIO, LD [address] [place] [address] [phone] Chronic Kidney Disease Stage 4 Glomerula r Filtration Rate 15- 29 (HCC) Transplantation and Clinical Regeneration in [place], [place] [address] [place] [phone] Social History Tobacco Use Types Packs/Day Years [...] 12/15/2021 organizations such as spiritism groups, unions, [employer] or athletic groups, or school groups? 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 Bruce Singh is referred for pre- kidney transplant nutrition assessment and education. Met with patient. TRANSPLANT CANDIDACY STATEMENT From a nutritional perspective, this patient presents as an appropriate transplant candidate. ASSESSMENT Relevant Social and Family History He lives alone. Nutrition Focused Physical Findings No concerns. Food/Nutrition Related History Current Oral Intake: He is following a healthy diet. He eats oatmeal, fruit and milk with protein powder added for breakfast. Snack is fruit. Lunch is from [employer] or [employer]. Snack is fruit. Dinner is Healthy Choice steamers or veggies with grilled chicken. Snack at night is fruit. He doesn't skip meals. He is eating out once per day. He states that he has a friend who is a dietitian and gives him information and encouragement. Physical Activity: He is active using his elliptical and lifting weights. He is also active throughout the day with yard work and golfing. Weight History Patient Weight: 03/25/18 : 86.6 kg Ht Readings from Last 1 Encounters: 03/25/18 176.1 cm BMI Readings from Last 1 Encounters: 03/25/18 27.93 kg/m?? In 2012, he lost 50 pounds and got down to 150 pounds. He has gained up to 175- 185 pounds and has been stable there for a year. NUTRITION DIAGNOSIS Food- and nutrition-related knowledge deficit related to minimal exposure to nutrition guidelines for kidney disease as evidenced by per patient's report Nutrition Diagnosis Reassessment: Ongoing Nutrition Prescription/Recommendation 2,000 mg sodium, limit animal protein to no more than 8 ounces per day INTERVENTION Counseling: Discussed guidelines for a kidney friendly diet. We discussed diet rational and overall focus was on protein and sodium guidelines. We discussed that despite his higher blood glucose levels, fruit is a good option as opposed to other things he might snack on. I encouraged him to increase his activity. Education: See Patient Education Record for information regarding education materials covered today. MONITORING AND EVALUATION: Nutrition parameter to monitor: Glucose Desired Outcome: Work to improve glucose control Patient Goal(s): 1. Continue to limit sugar intake 2. Increase daily activity FOLLOW UP PLAN: Provided name and phone number if questions should arise. Time spent with patient (minutes): 45 documented in this encounter Plan of Treatment Upcoming Encounters Date Type Specialty Care Team Description 04/24/2022 Appointment Laboratory Medicine Angélica Granger P.A.-C. [address] [place] [phone] 04/25/2022 Office Visit Otorhinolaryngology Dex Matta, RAMONA, C.N.P., M.S.N. [address] [place] [address] [phone] 05/08/2022 Appointment Laboratory Medicine Angélica Granger P.A.-C. [address] [place] [address] [phone] 05/08/2022 Clinical Admitting/Central Communication Scheduling 05/10/2022 Appointment Radiology Jeremie Rose M.D. [address] [place] [phone] 05/10/2022 Comprehensive Visit Orthopedic Surgery Warner Graves M.D. [address] [place] [address] [phone] 05/22/2022 Appointment Laboratory Medicine Angélica Granger P.A.-C. [address] [place] [phone] 06/05/2022 Appointment Laboratory Medicine Angélica Granger P.A.-C. [address] [place] [phone] 06/19/2022 Appointment Laboratory Medicine Angélica Granger P.A.-C. [address] [place] [phone] 07/03/2022 Appointment Laboratory Medicine Angélica Granger P.A.-C. [address] [place] [phone] 07/17/2022 Appointment Laboratory Medicine Angélica Granger P.A.-C. [address] [place] [phone] 07/31/2022 Appointment Laboratory Medicine Angélica Granger P.A.-C. [address] [place] [phone] 08/14/2022 Appointment Laboratory Medicine Angélica Granger P.A.-C. [address] [place] [phone] 08/28/2022 Appointment Laboratory Medicine Angélica Granger P.A.-C. [address] [place] [phone] documented as of this encounter Visit Diagnoses Diagnosis Pretransplant Recipient Evaluation Exam Chronic Kidney Disease Stage 4 Glomerula r Filtration Rate 15-29 (HCC) documented in this encounter Additional Health Concerns Assessment Noted Time PHQ-9 Depression Total Score: 3 03/26/2018 3:02 PM CDT documented as of this encounter Care Teams Popcorn Vendor Relationship Specialty Start Date End Date Elsewhere, Pcp PCP - General Family Medicine 07/29/17 documented as of this encounter
--- OUTSIDE RECORDS SUMMARY | 2022-04-13 12:35 | XMS_ITS | Encounter Summary ---
:1955 Author Organization [facility] Address [address] [place] [address] Care Team Providers Name Role Phone Elsewhere, Pcp Primary Care Provider Unavailable Reason for Visit Outpatient (Routine) - Closed Specialty Diagnoses / Procedures Referred By Contact Refer red To Contact Neurology Tres Rico M.D. 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 - 04/29/2018 4:00 PM CST SUBJECTIVE CHIEF COMPLAINT / REASON FOR VISIT Follow-up after testing. HISTORY OF PRESENT ILLNESS EEG awake and asleep. Neuropsych testing: Testing shows mild problems with sustained attention and efficiently acquiring new information, which then limits his delay recall. ASSESSMENT / PLAN #1 Memory complaints #2 Complaint of poor attention #3 Spells #4 Traumatic brain injury #5 Status post liver transplantation #6 Chronic renal insufficiency #7 Essential tremor ?? Plan: He has had lifelong issues with decreased attention and these extremely brief spells. Over the last 10 years or so this has become a bit worse and he has had some difficulties with repeating things in conversation. I think these are lifelong issues that are a bit worse over the last several years. Thetraumatic brain injury could be contributing to some degree. I do not think he has has dementia because his activities of daily living are fine. It is possible he has mild cognitive impairment but overall my suspicion is he has normal aging plus perhaps a little contribution from the prior traumatic brain injury. I think it is unlikely that the spells represent seizures, and I certainly would not alex mmend antiseizure medication. I think they are probably just momentary lapses of attention or perhaps a daydreaming phenomenon. ?? I recommended he remain physically and mentally active. I discussed the neuropsychometric testing could be repeated in a year or two, but we decided not to pursue that. That could be repeated in the future if his symptoms were to get significantly worse. Patient will be returning to the care of his local providers. Patient education: Ready to learn. No apparent learning barriers were identified. Learning preferences include listening. Explained diagnosis and treatment plan; patient expressed understanding of the content. Coding: Coded F2: 10 minutes total spent, all counseling and coordination of care. SCHOOL TUTOR documented in this encounter Plan of Treatment Upcoming Encounters Date Type Specialty Care Team Description 04/24/2022 Appointment Laboratory Medicine Angélica Granger P.A.-C. [address] [place] [phone] 04/25/2022 Office Visit Otorhinolaryngology Dex Matta, RAMONA, C.N.P., M.S.N. [address] [place] [phone] 05/08/2022 Appointment Laboratory Medicine Angélica Granger P.A.-CDemetrius [address] [place] [phone] 05/08/2022 Clinical Admitting/Central Communication Scheduling 05/10/2022 Appointment Radiology Jeremie Rose M.D. [address] [place] [phone] 05/10/2022 Comprehensive Visit Orthopedic Surgery Warner Graves M.D. [address] [place] [phone] 05/22/2022 Appointment Laboratory Medicine Angélica Granger P.A.-C. [address] [place] [phone] 06/05/2022 Appointment Laboratory Medicine Angélica Granger P.A.-C. [address] [place] [phone] 06/19/2022 Appointment Laboratory Medicine Angélica Granger P.A.-C. [address] [place] [phone] 07/03/2022 Appointment Laboratory Medicine Angélica Granger P.A.-C. [address] [place] [address] [phone] 07/17/2022 Appointment Laboratory Medicine Angélica Granger P.A.-C. [address] [place] [phone] 07/31/2022 Appointment Laboratory Medicine Angélica Granger P.A.-C. [address] [place] [address] [phone] 08/14/2022 Appointment Laboratory Medicine Angélica Granger P.A.-C. [address] [place] [phone] 08/28/2022 Appointment Laboratory Medicine Angélica Granger P.A.-C. [address] [place] [phone] documented as of this encounter Visit Diagnoses Diagnosis Complaint Memory - Primary documented in this encounter Care Teams Fitness And Wellness Director Relationship Specialty Start Date End Date Elsewhere, Pcp PCP - General Family Medicine 07/29/17 documented as of this encounter
--- OUTSIDE RECORDS SUMMARY | 2022-04-13 12:35 | XMS_ITS | Encounter Summary ---
:1955 Author Organization [facility] Address [address] [place] [phone] Care Team Providers Name Role Phone Elsewhere, Pcp Primary Care Provider Unavailable Reason for Visit Reason Comments Med Refill Encounter Details Date Type Department Care Team Description 05/05/2018 Refill Division of Gastroenterology in [facility], Med Refill [place], [place] M.B.B.S. 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 [address] [place] [phone] 04/25/2022 Office Visit Otorhinolaryngology Dex Matta, RAMONA, C.N.P., M.S.N. [address] [place] [phone] 05/08/2022 Appointment Laboratory Medicine Angélica Granger P.A.-CDemetrius [address] [place] [phone] 05/08/2022 Clinical Admitting/Central Communication Scheduling 05/10/2022 Appointment Radiology Jeremie Rose M.D. [address] [place] [phone] 05/10/2022 Comprehensive Visit Orthopedic Surgery Warner Graves M.D. [address] [place] [address] [phone] 05/22/2022 Appointment Laboratory Medicine Angélica Granger P.A.-C. [address] [place] [address] [phone] 06/05/2022 Appointment Laboratory Medicine Angélica Granger P.A.-C. [address] [place] [phone] 06/19/2022 Appointment Laboratory Medicine Angélica Granger P.A.-C. [address] [place] [phone] 07/03/2022 Appointment Laboratory Medicine Angélica Granger P.A.-C. [address] [place] [phone] 07/17/2022 Appointment Laboratory Medicine Angélica Granger P.A.-C. [address] [place] [phone] 07/31/2022 Appointment Laboratory Medicine Angélica Granger P.A.-C. [address] [place] [phone] 08/14/2022 Appointment Laboratory Medicine Angélica Granger P.A.-C. [address] [place] [phone] 08/28/2022 Appointment Laboratory Angélica Royal P.A.-C. [address] [place] [phone] documented as of this encounter Visit Diagnoses Diagnosis Transplant Liver (HCC) documented in this encounter Care Teams Dimpling Machine Operator Relationship Specialty Start Date End Date Elsewhere, Pcp PCP - General Family Medicine 07/29/17 documented as of this encounter
--- OUTSIDE RECORDS SUMMARY | 2022-04-13 12:35 | XMS_ITS | Encounter Summary ---
:1955 Author Organization [facility] Address [address] [place] [address] Care Team Providers Name Role Phone Elsewhere, Pcp Primary Care Provider Unavailable Encounter Details Date Type Department Care Team Description 03/26/2018 Hospital Department of Neo Bowman Encounter Fo r Preprocedural Cardiovascular Examination ; Encounter Cardiovascular R, M.D. 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 [address] [place] [address] 04/25/2022 Office Visit Otorhinolaryngology Dex Matta APRN, C.N.P., M.S.N. [address] [place] [phone] 05/08/2022 Appointment Laboratory Medicine Angélica Granger P.A.-C. [address] [place] [phone] 05/08/2022 Clinical Admitting/Central Communication Scheduling 05/10/2022 Appointment Radiology Jeremie Rose M.D. [address] [place] [phone] 05/10/2022 Comprehensive Visit Orthopedic Surgery Warner Graves M.D. [address] [place] [phone] 05/22/2022 Appointment Laboratory Medicine Angélica Granger P.A.-C. [address] [place] [phone] 06/05/2022 Appointment Laboratory Medicine Angélica Granger P.A.-C. [address] [place] [phone] 06/19/2022 Appointment Laboratory Medicine Angélica Granger P.A.-C. [address] [place] [phone] 07/03/2022 Appointment Laboratory Medicine Angélica Granger P.A.-C. [address] [place] [phone] 07/17/2022 Appointment Laboratory Medicine Angélica Granger P.A.-C. [address] [place] [phone] 07/31/2022 Appointment Laboratory Medicine Angélica Granger P.A.-C. [address] [place] [phone] 08/14/2022 Appointment Laboratory Medicine Angélica Granger P.A.-C. [address] [place] [phone] 08/28/2022 Appointment Laboratory Medicine Angélica Granger P.A.-C. [address] [place] [phone] documented as of this encounter Procedures Procedure Name Priority Date/Time Associated Diagnosis Comme nts ECHO STRESS 2D Routine 03/26/2018 8:54 AM Encounter For Result s for this WITH COLOR AND CDT Preprocedural procedure ar e in DOPPLER Cardiovascular the results Examination section. Pretransplant Recipient Evaluation Exam Chronic Kidney Disease Stage 4 Glomerular Filtration Rate 15-29 (HCC) documented in this encounter Results ECHO STRESS 2D WITH COLOR AND DOPPLER (03/26/2018 8:54 AM CDT) [facility] gist Method Time Signature Ejection Fraction 61 MC CV EIMS Sinus of Valsalva 40 MC CV EIMS Sinotubular Junction 31 MC CV EIM S Mid-Ascending Aorta 40 MC CV EIMS Wall Motion Score 1.00 MC CV EIMS Index LV Mass Index 106 MC CV EIMS LV End-Diastolic 55 MC CV EIMS Diameter LV End-Systolic 36 MC CV EIMS Diameter MV E Velocity 0.6 MC CV EIMS MV A Velocity 0.7 MC CV EIMS MV E/A 0.86 MC CV EIMS MV e' Velocity 0.07 MC CV EIMS Medial MV E/e' Medial 8.6 MC CV EIMS LV Interventricular 10 MC CV EIMS Septal Wall Thickness LV Posterior Wall 10 MC CV EIMS Thickness LV Relative Wall 36 MC CV EIMS Thickness TR Vmax 2.40 MC CV EIMS RA Pressure 5 MC CV EIMS RV Systolic Pressure 28 MC CV EIM S LA Volume Index 44 MC CV EIMS WMSI At Rest 1.00 MC CV EIMS WMSI At Peak Stress 1.00 MC CV EIMS Anatomical Region Laterality Modality Echocardiography Specimen (Source) Anatomical Collection Method Collection Time Re ceived Time Location / / Volume Laterality 03/26/2018 7:25 AM CDT Narrative 03/26/2018 10:06 AM CDT This result has an attachment that is no t available. See PDF For Result Procedure Note Gurmeet Lazo M.D. - 03/26/2018Form atting of this note might be different from the original. See PDF For Result Neo Bowman M.D. CV ECHO PROCEDURES documented in this encounter Visit Diagnoses Diagnosis Encounter For Preprocedural Cardiovascul ar Examination Pretransplant Recipient Evaluation Exam Chronic Kidney Disease Stage 4 Glomerula r Filtration Rate 15-29 (HCC) documented in this encounter Administered Medications Inactive Administered Medications - up to 3 most recent administrations Medication Order MAR Action Action Date Dose Rate Site atropine injection 0.25 mg Given 03/26/2018 8:59 AM CDT 2 mg 0.25 mg, intravenous, As needed, See protocol, Starting on Shraddha 03/26/18 at 0858 DOBUTamine 1,000 mcg/mL in D5W 250 mL New Bag 03/26/2018 9:00 AM C DT 23 mg infusion 1-100 mg (DOBUTREX) 1-100 mg, intravenous, Once, On Shraddha 03/26/18 at 0900, For 1 dose, Infusion rate: 5-40 mcg/kg/min - see protocol. Premix ba mg in 250 mL documented in this encounter Additional Health Concerns Assessment Noted Time PHQ-9 Depression Total Score: 3 03/26/2018 3:02 PM CDT documented as of this encounter Care Teams Laundry Aide Relationship Specialty Start Date End Date Elsewhere, Pcp PCP - General Family Medicine 07/29/17 documented as of this encounter
--- OUTSIDE RECORDS SUMMARY | 2022-04-13 12:35 | XMS_ITS | Encounter Summary ---
:1955 Author Organization [facility] Address [address] [place] [address] Care Team Providers Name Role Phone Elsewhere, Pcp Primary Care Provider Unavailable Reason for Visit Transplant (Routine) - Closed Specialty Diagnoses / Procedures Referred By Contact Refer red To Contact Transplant Surgery / Diagnoses Pretransplant Recipient Evaluation Exam Chronic Kidney Disease Stage 4 Glomerular Filtration Rate 15-29 ([facility] [address] [place] [address] Referral ID Status Reason Start Date Expiration Date Visits Requ ested Visits Authorized [id number] Closed 02/16/2018 02/16/2019 1 1 Encounter Details Date Type Department Care Team Description 03/27/2018 Comprehensive Visit Dario Garay M.D., Ph.D. [address] [place] [phone] Pretransplant Recipient Evaluation Exam; Milad Richmond M.D. [address] [place] [address] [phone] Chronic Kidney Disease Stage 4 Glomerula r Filtration Rate 15- 29 (HCC) Transplantation and Clinical Regeneration in [place], [place] [address] [place] [phone] Social History Tobacco Use Types Packs/Day Years [...] slept in a nursing home (including now)? 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 - 03/27/2018 9:30 AM CDT SUBJECTIVE CHIEF COMPLAINT / REASON FOR VISIT Surgical transplant evaluation HISTORY OF PRESENT ILLNESS I am asked by Neo Bowman M.D. to see this patient regarding kidney transplantation. He is a 62 y.o. 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 He is not on dialysis. He has undergone two prior abdominal transplants. PAST ABDOMINAL SURGICAL HISTORY orthotopic liver transplant X 2 OBJECTIVE PHYSICAL EXAM Abdomen: non-tender, bilateral subcostal incision Vessels: femoral pulse is 4+ on the right and 4+ on the left. ASSESSMENT / PLAN The patient is a 62 y.o. male with Stage V chronic kidney disease. I discussed the surgical aspects of both living and donor kidney transplantation in detail with the patient, including surgical complications, the kidney transplant waiting list, variation in donor quality across all potentialdonor kidneys, life expectancy and quality of life after transplant, the need for lifelong immunosuppression, the risks of recurrent disease after transplant, and the transmission of donor-derived disease. The patient had multiple questions during today's visit, and I answered all those questions to the patient's satisfaction. I think he is an excellent candidate for transplantation from a surgical [place]. I spent 15 minutes with the patient, of which greater than 50% of the time was spent in patient education, counseling, and coordination of care as described above. documented in this encounter Plan of Treatment Upcoming Encounters Date Type Specialty Care Team Description 04/24/2022 Appointment Laboratory Medicine Angélica Granger P.A.-C. [address] [place] [phone] 04/25/2022 Office Visit Otorhinolaryngology Dex Matta APRN, CDemetriusNDemetriusP., M.S.N. [address] [place] [phone] 05/08/2022 Appointment Laboratory Medicine Angélica Granger P.A.-C. [address] [place] [phone] 05/08/2022 Clinical Admitting/Central Communication Scheduling 05/10/2022 Appointment Radiology Jeremie Rose M.D. [address] [place] [phone] 05/10/2022 Comprehensive Visit Orthopedic Surgery Warner Graves M.D. [address] [place] [phone] 05/22/2022 Appointment Laboratory Medicine Angélica Granger P.A.-C. [address] [place] [phone] 06/05/2022 Appointment Laboratory Medicine Angélica Granger P.A.-C. [address] [place] [phone] 06/19/2022 Appointment Laboratory Medicine Angélica Granger P.A.-C. [address] [place] [phone] 07/03/2022 Appointment Laboratory Medicine Angélica Granger P.A.-C. [address] [place] [phone] 07/17/2022 Appointment Laboratory Medicine Angélica Granger P.A.-C. [address] [place] [phone] 07/31/2022 Appointment Laboratory Medicine Angélica Granger P.A.-C. [address] [place] [phone] 08/14/2022 Appointment Laboratory Angélica Royal P.A.-C. [address] [place] [phone] 08/28/2022 Appointment Laboratory Medicine Angélica Granger P.A.-C. [address] [place] [phone] documented as of this encounter Visit Diagnoses Diagnosis Pretransplant Recipient Evaluation Exam Chronic Kidney Disease Stage 4 Glomerula r Filtration Rate 15-29 (HCC) documented in this encounter Care Teams General Store Manager Relationship Specialty Start Date End Date Elsewhere, Pcp PCP - General Family Medicine 07/29/17 documented as of this encounter
--- OUTSIDE RECORDS SUMMARY | 2022-04-13 12:35 | XMS_ITS | Encounter Summary ---
:1955 Author Organization [facility] Address [address] [place] [address] Care Team Providers Name Role Phone Elsewhere, Pcp Primary Care Provider Unavailable Encounter Details Date Type Department Care Team Description 03/25/2018 Orders Only Division of Nephrology Gracie, Audi Guillaume Impacted and Hypertension in M.D. 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 [address] [place] [phone] 05/08/2022 Appointment Laboratory Medicine Angélica Granger P.A.-CDemetrius [address] [place] [address] [phone] 05/08/2022 Clinical Admitting/Central Communication Scheduling 05/10/2022 Appointment Radiology Jeremie Rose M.D. [address] [place] [phone] 05/10/2022 Comprehensive Visit Orthopedic Surgery Warner Graves M.D. [address] [place] [address] [phone] 05/22/2022 Appointment Laboratory Medicine Angélica Granger P.A.-CDemetrius [address] [place] [phone] 06/05/2022 Appointment Laboratory Medicine Angélica Granger P.A.-C. [address] [place] [phone] 06/19/2022 Appointment Laboratory Medicine Angélica Granger P.A.-C. [address] [place] [phone] 07/03/2022 Appointment Laboratory Medicine Angélica Granger P.A.-C. [address] [place] [phone] 07/17/2022 Appointment Laboratory Medicine Angélica Granger P.A.-C. [address] [place] [phone] 07/31/2022 Appointment Laboratory Angélica Royal P.A.-C. [address] [place] [phone] 08/14/2022 Appointment Laboratory Angélica Royal P.A.-C. [address] [place] [phone] 08/28/2022 Appointment Laboratory Angélica Royal P.A.-C. [address] [place] [phone] documented as of this encounter Visit Diagnoses Diagnosis Cerumen Impacted Bilateral - Primary documented in this encounter Additional Health Concerns Assessment Noted Time PHQ-9 Depression Total Score: 5 03/24/2018 9:15 PM CDT documented as of this encounter Care Teams Pipe Fitter [employer] Relationship Specialty Start Date End Date Elsewhere, Pcp PCP - General Family Medicine 07/29/17 documented as of this encounter
--- OUTSIDE RECORDS SUMMARY | 2022-04-13 12:35 | XMS_ITS | Encounter Summary ---
:1955 Author Organization [facility] Address [address] [place] [address] Care Team Providers Name Role Phone Elsewhere, Pcp Primary Care Provider Unavailable Reason for Visit Reason Comments Med Management Outpatient (Routine) - Closed Specialty Diagnoses / Procedures Referred By Contact Refer red To Contact Pharmacy Diagnoses Pretransplant Recipient Evaluation Exam Chronic Kidney Disease Stage 4 Glomerular Filtration Rate 15-29 (HCC) Neo Bowman M.D. [facility] [address] [place] [phone] Referral ID Status Reason Start Date Expiration Date Visits Requ ested Visits Authorized [id number] Closed 02/16/2018 02/16/2019 1 1 Encounter Details Date Type Department Care Team Description 03/26/2018 Medication Curt Olivo, Pret[place] nsplant Recipient Evaluation Exam; Management [facility] for Neo Millard Chronic Kidney Disease Stage 4 Glomerular Filtration Rate 15-29 ([facility]) Transplantation and [facility] [address] [place] [address] [place] [phone] [place], [place] [phone] (Work) [phone] Social History Tobacco Use Types Packs/Day Years [...] or slept in a prison (including now)? 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 - 03/26/2018 9:30 AM CDT SUBJECTIVE Referring Provider Neo Bowman M.D. Chief Complaint Targeted Transplant Medication Therapy Management: Review of therapies for kidney disease, medication adherence, and any medications that impact transplant candidacy. History of Present Illness (HPI) Bruce Singh is a 62 y.o. 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 The most recent transplant is functioning. Patient is not on dialysis. 1. Assessment of Pharmacologic Risk The following represents pertinent positives to the patient's care: Hypertension medications: Amlodipine 10mg daily, Carvedilol 6.25mg twice daily, Doxazosin 8mg daily and Torsemide 30mg daily. Drug Monitoring Information: Patient performs self-monitoring of blood pressure. Self-reported bloodpressure range: 120-140/80-90. Hyperlipidemia medications: Atorvastatin 10mg daily. Drug Monitoring Information: Patient stated he had previous muscle aches so he initiated co-enzyme Q10 but has not noticed if it provided benefit or not. Insomnia medications: Trazodone 100mg as needed for sleep. Drug Monitoring Information: Mr. Singh stated he has not needed to use this within the last year. Prevention of bone disease medications: Cholecalciferol 2,000 units daily, calcium 400mg twice daily(exact product unknown). Hepatic Artery Thrombosis Prophylaxis medications: Aspirin 81mg daily. Drug Monitoring Information: The patient is experiencing significant bruising. Psychiatric medications: Lamotrigine 200mg twice daily. Drug Monitoring Information: patient reports being started on this medication following diagnosis ofbipolar disorder due to previous antidepressant use. He report no recent dose changes and current control of mood symptoms. Current vitamin/herbal supplementation includes: coenzyme Q10 200mg daily and a multivitamin daily. Immunosuppression medications: Mycophenolate mofetil 500mg twice daily, Prednisone 5mg daily and Tacrolimus 1mg twice daily. Goal tacrolimus trough level currently 2-4ng/mL. Patient denies any headaches, diarrhea, heartburn at this time. He does endorse some mild tremor. He also reports having some pre- cancerous skin lesions removed in the past. Hypothyroidism medications: levothyroxine 25mcg daily. Of note, TSH drawn on 03/25/18 = 6. Seasonal allergy medications: Flonase nasal spray as needed for nasal congestion and Atrovent nasal spray as needed for rhinitis. 2. Assessment of Non-Pharmacologic Risk How does the patient manage their medication? The patient does keep a medication list via an rodolfo on his phone. The patient uses 4 pillboxes for a total of 2 weeks of medications. He fills the pill box. Refills are obtained by reminders from the pharmacy. The patient states he has missed medications less than 1 times in the last 3 years. The patient uses [facility] pharmacy in [place], [place] for all medication refills. He mentioned if [place]travels to [place], he will use a local [facility] there. Does the patient know what medications are for (aware of medication indication, dose, schedule)? The patient knows all of the doses, indications and schedules of their medications. The patient was able to articulate medication concerns today. How involved is the patient in their own care? Highly Are there any current socioeconomic barriers with respect to obtaining medications? None Are there any potential communication or physical barriers that may affect adherence? None 3. Medication Reconciliation Medications have been updated in EHR to reflect patient reported usage. The patient brought none of their bottles with them today. Social History The patient reports that he has never smoked. He has never used smokeless tobacco. Drug use questions deferred to the physician. He reports that he does not drink alcohol. Past Medical History No past medical history on file. Allergies Allergies Allergen Reactions ??? Cefixime Diarrhea ??? Ciprofloxacin Other (see comments) Tendon pain ??? Citalopram Other (see comments) michell ??? Erythromycin Base Other (see comments) Due to medications ??? Olanzapine Other (see comments) Joint pain ??? Quetiapine Edema Muscle pain and swelling Medication List Outpatient Encounter Prescriptions as of 03/26/2018 Medication Sig Dispense Refill ??? amLODIPine (NORVASC) 10 mg tablet TAKE [...] mouth daily. Restarted on 03-26-17. Maintenance. ??? acetaminophen (TYLENOL) 500 mg tablet Take 1 tablet by mouth every 6 (six) hours as needed. Pain. No more than 2000 mg per day. ??? traZODone (DESYREL) 100 mg tablet Take 1 tablet by mouth at bedtime as needed for sleep. Maintenance OBJECTIVE Systems Review Vitals Wt Readings from Last 3 Encounters: 03/25/18 86.6 kg 02/10/18 84 kg 02/10/18 84.5 kg Pulse Readings from Last 3 Encounters: 02/10/18 (!) 55 02/10/18 (!) 52 09/03/17 63 BP Readings from Last 3 Encounters: 02/10/18 115/69 02/10/18 112/60 09/03/17 124/73 Resulted labs have been reviewed. Lab Results Component Value Date EBVVCAIGG Positive 10/21/2012 HGBA1C 5.5 08/21/2017 CREATININE 2.89 (H) 03/25/2018 Lab Results Component Value Date LDLCALC 82 03/25/2018 HDL 50 03/25/2018 CHOL 162 03/25/2018 TRIG 150 (H) 03/25/2018 ASSESSMENT / PLAN 1. General Transplant Medication Review The patient was provided the Transplant Medication Education handout entitled Your Transplant Medications. The contents of the handout were discussed with the patient and all questions were answered. 2. Assessment of Pharmacologic Risk The patient has medication-related issues which increase pharmacologic risk and may require enhancedmonitoring our medication discontinuation in the perioperative period: Medications that may affect bleeding risk: Aspirin. Mr. Singh was previously using a fish oil capsule daily. Recommended he discontinue use of this as he could not recall specific indication as well as increased risk for bleeding at the time of surgery. No clinically significant drug interactions noted. Current use of immunosuppressive relevant to transplantation: Low threshold for mycophenolate AUC asMgill Singh reports having prior issue with higher dose of mycophenolate, but cannot recall what the side effect was. Also of note, Mr. Singh mentions pre-cancerous skins lesions requiring removal in the past. Medication allergies relevant to transplantation: Patient reports intolerance to Cefixime of diarrhea. Ok to use cephalosporins for perioperative antimicrobial prophylaxis at the time of surgery. 3. Assessment of Non-Pharmacologic Risk SIPAT Scoring Treatment Compliance/Adherence (Pertinent to medical issues) Contraindications specific to pharmacist assessment regarding treatment compliance/adherence: None SIPAT Section IV recommended score: 0 out of 8 (Excellent Candidate) To address potential barriers, the following was discussed: No barriers noted 4. Current Medication Recommendations Recommended use of DETENTION-verified rkik-evu-ecmhrnv supplements to ensure purity and potency standards. Recommended discontinuation of probiotic in capsule form due to increased risk for infection while on immunosuppressant medications. Recommended Kefir by Potential instead if needed. 5. Pharmacist Impression All medications, as reported to the pharmacist by the patient, were reviewed for indications, side effects and safety while considering transplant candidacy. From a pharmacy perspective, at this time Bijan not foresee any medication-related barriers that would preclude transplantation. Margie Reyes Pharm.D., R.Ph. Clinical Pharmacist documented in this encounter Plan of Treatment Upcoming Encounters Date Type Specialty Care Team Description 04/24/2022 Appointment Laboratory Medicine Angélica Granger P.AModesto. [address] [place] [phone] 04/25/2022 Office Visit Otorhinolaryngology Dex Matta APRN, C.N.P., M.S.NDemetrius [address] [place] [phone] 05/08/2022 Appointment Laboratory Medicine Angélica Granger P.A.-C. [address] [place] [phone] 05/08/2022 Clinical Admitting/Central Communication Scheduling 05/10/2022 Appointment Radiology Jeremie Rose M.D. [address] [place] [phone] 05/10/2022 Comprehensive Visit Orthopedic Surgery Warner Graves M.D. [address] [place] [phone] 05/22/2022 Appointment Laboratory Medicine Angélica Granger P.A.-C. [address] [place] [phone] 06/05/2022 Appointment Laboratory Medicine Angélica Granger P.A.-C. [address] [place] [phone] 06/19/2022 Appointment Laboratory Medicine Angélica Granger P.A.-C. [address] [place] [phone] 07/03/2022 Appointment Laboratory Medicine Angélica Granger P.A.-C. [address] [place] [phone] 07/17/2022 Appointment Laboratory Medicine Angélica Granger P.A.-C. [address] [place] [phone] 07/31/2022 Appointment Laboratory Medicine Angélica Granger P.A.-C. [address] [place] [phone] 08/14/2022 Appointment Laboratory Medicine Angélica Granger P.A.-C. [address] [place] [phone] 08/28/2022 Appointment Laboratory Medicine Angélica Granger P.A.-C. [address] [place] [phone] documented as of this encounter Visit Diagnoses Diagnosis Pretransplant Recipient Evaluation Exam Chronic Kidney Disease Stage 4 Glomerula r Filtration Rate 15-29 (HCC) documented in this encounter Additional Health Concerns Assessment Noted Time PHQ-9 Depression Total Score: 3 03/26/2018 3:02 PM CDT documented as of this encounter Care Teams Lieutenant Ballistics Relationship Specialty Start Date End Date Elsewhere, Pcp PCP - General Family Medicine 07/29/17 documented as of this encounter
--- OUTSIDE RECORDS SUMMARY | 2022-04-13 12:35 | XMS_ITS | Encounter Summary ---
:1955 Author Organization [facility] Address [address] [place] [address] Care Team Providers Name Role Phone Elsewhere, Pcp Primary Care Provider Unavailable Reason for Visit Reason Comments Transplant Recipient Evaluation End of Evaluation Outpatient (Routine) - Closed Specialty Diagnoses / Procedures Referred By Contact Refer red To Contact Transplant [facility] [address] [place] [phone] Referral ID Status Reason Start Date Expiration Date Visits Requ ested Visits Authorized [id number] Closed 02/16/2018 02/16/2019 1 1 Encounter Details Date Type Department Care Team Description 03/27/2018 Office Visit Neo [facility] ransplant Recipient Evaluation Exam; Center for R, M.D. Chronic Kidney Disease Stage 4 Glomerula r Filtration Rate 15-29 (HCC) Transplantation and [address] [place] [address] in [place], [place] [phone] [place] [address] [place] [phone] (Work) [phone] Social History Tobacco Use Types Packs/Day Years [...] 12/15/2021 organizations such as tenriism groups, unions, franeoSurgical or athletic groups, or school groups? 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 - 03/27/2018 12:00 AM CDT SUBJECTIVE Mr. Singh returned for summary report of his medical evaluation as a kidney transplant candidate. He has had 2 previous liver transplants, the last in 2012. 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 His GFR is approximately 20. We have identified GFR measurements that meet criteriafor listing. Functionally, the patient is better than average. He may have potential living donors. One concern is a history of bipolar depression, which has been aggravated by high-dose steroids historically. They should be avoided. We will verify that his colonoscopy is up to date (August 2017) as well as a PSA. His most recent BMII could find was 22. KIDNEY TRANSPLANT RECIPIENT CANDIDATE EVALUATION/CHECKLIST: 1. 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 On long-term calcineurin inhibitors. 2. Recurrence risk: Low. 3. Consent form obtained: 03/25/2018. 4. Previous transplants (date, type): No kidney transplants, but 2 orthotopic liver transplants; seeabove. 5. Dialysis (date, type): None. 6. Diabetes (PTx candidate?): None. 7. BMI: 22. 8. Functional status: B. 9. Cardiopulmonary (cTnT, EF%, other): The patient has a resting bradycardia of 88 with an otherwisenormal EKG, chest x-ray, heart exam, lung exam. Dobutamine stress echo was satisfactory with 61% EF at rest, 70% at stress. There were no regional wall motion abnormalities. The study was limited as his heart rate only increased to 115. The patient's chest x-ray showed some calcification of the aorta but otherwise was negative. His troponin T was 22. 10. History of malignancies: None. 11. Health maintenance: Colonoscopy was normal August 2017. PSA review pending. 12. History of serious infections: None known. 13. Urinary bladder dysfunction: None known. 14. Hematology/coagulation: No known bleeding or clotting disorder. 15. Other medical: PTH 102. The patient is EBV positive, CMV positive. 16. Anti-HLA antibodies: Despite multiple transfusions and 2 previous transplants, class 1 HLA 7%, class 2 was 2%. Awaiting calculated PRA. 17. Surgical issues: Ultrasound of the iliac arteries and vessels satisfactory; see surgeon's note. 18. Peripheral Vascular Disease (PVD): None known. 19. Psychosocial/financial concerns: History of bipolar depression, currently no symptoms. 20. Pending issues: Verify PSA, BMI. 21. Plans for immunosuppression: Likely a simulate candidate, but avoid high- dose steroids. 22. Preferred wait list followup for next year: I would recommend annual evaluations, but hopefully he can identify a potential living donor. Discuss with his nurse coordinator, Patricia Dick. Will present at our next selection conference. CONSENT Information regarding evaluation process and the national and center-specific outcomes for the release date of June 2017 SRTR center-specific report, including the transplant center's observed and expected one-year patient and graft survival, national one-year patient and graft survival, as well asthe risks, benefits, and alternatives to the evaluation were provided to the patient. Questions regarding the evaluation process were answered. Bruce Singh has agreed to proceed with the transplant evaluation and has signed the consent form. The witnessed and signed consent form has been electronically entered into the patient's medical record. 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 [address] [place] [phone] 04/25/2022 Office Visit Otorhinolaryngology Dex Matta APRN, C.N.P., M.S.N. [address] [place] [phone] 05/08/2022 Appointment Laboratory Medicine Angélica Granger P.A.-C. [address] [place] [phone] 05/08/2022 Clinical Admitting/Central Communication Scheduling 05/10/2022 Appointment Radiology Jeremie Rose M.D. [address] [place] [phone] 05/10/2022 Comprehensive Visit Orthopedic Surgery Warner Graves M.D. [address] [place] [phone] 05/22/2022 Appointment Laboratory Medicine Angélica Granger P.A.-C. [address] [place] [phone] 06/05/2022 Appointment Laboratory Medicine Angélica Granger P.A.-C. [address] [place] [phone] 06/19/2022 Appointment Laboratory Angélica Royal P.A.-C. [address] [place] [phone] 07/03/2022 Appointment Laboratory Medicine Angélica Granger P.A.-C. [address] [place] [phone] 07/17/2022 Appointment Laboratory Angélica Royal P.A.-C. [address] [place] [phone] 07/31/2022 Appointment Laboratory Angélica Royal P.A.-C. [address] [place] [phone] 08/14/2022 Appointment Laboratory Angélica Royal P.A.-C. [address] [place] [phone] 08/28/2022 Appointment Laboratory Angélica Royal P.A.-C. 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
--- OUTSIDE RECORDS SUMMARY | 2022-04-13 12:35 | XMS_ITS | Encounter Summary ---
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 200 [place] [phone] 04/25/2022 Office Visit Otorhinolaryngology Dex Matta APRN, C.N.P., M.S.N. [address] [place] [phone] 05/08/2022 Appointment Laboratory Medicine Angélica Granger P.A.-C. [address] [place] [phone] 05/08/2022 Clinical Admitting/Central Communication Scheduling 05/10/2022 Appointment Radiology Jeremie Rose M.D. [address] [place] [phone] 05/10/2022 Comprehensive Visit Orthopedic Surgery Warner Graves M.D. [address] [place] [phone] 05/22/2022 Appointment Laboratory Medicine Angélica Granger P.A.-C. [address] [place] [phone] 06/05/2022 Appointment Laboratory Medicine Angélica Granger P.A.-C. [address] [place] [phone] 06/19/2022 Appointment Laboratory Medicine Angélica Granger P.A.-C. [address] [place] [phone] 07/03/2022 Appointment Laboratory Medicine Angélica Granger P.A.-C. [address] [place] [phone] 07/17/2022 Appointment Laboratory Medicine Angélica Granger P.A.-C. [address] [place] [phone] 07/31/2022 Appointment Laboratory Medicine Angélica Granger P.A.-C. [address] [place] [phone] 08/14/2022 Appointment Laboratory Medicine Angélica Granger P.A.-C. [address] [place] [address] 08/28/2022 Appointment Laboratory Medicine Angélica Granger P.A.-C. [address] [place] [phone] documented as of this encounter Procedures Procedure Name Priority Date/Time Associated Comments Diagnosis TACROLIMUS LEVEL, B Routine 05/10/2018 9:00 AM Re sults for this MANUFACTURING COORDINATOR procedure are i n the results section. documented in this encounter Results (ABNORMAL) Tacrolimus, B (05/10/2018 9:00 AM MANUFACTURING COORDINATOR) [facility] Method Time Signature Tacrolimus, B 2.5 (L) 5.0-15.0 05/12/2018 [facility] (Trough) 10:37 AM MANUFACTURING COORDINATOR SUPERIOR ng/mL [facility] Tacrolimus 05/09/2018 05/12/2018 [facility] Blood Date of 10:37 AM MANUFACTURING COORDINATOR SUPERIOR Last Dose [facility] Tacrolimus 2100 05/12/2018 [facility] Time of Last 10:37 AM MANUFACTURING COORDINATOR SUPERIOR Dose [facility] Tacrolimus Not Specified mg 05/12/2018 [facility] Blood Dose, mg 10:37 AM MANUFACTURING COORDINATOR SUPERIOR [facility] Comment: ----ADDITIONAL INFORMATION---- Target steady-state [...] performa nce characteristics determined by [facility] in a manner consistent with CLIA requirements. This test has not been cleared or approved by the U.S. Mer d and Drug Administration. Specimen Anatomical Collection Method Collection Time Receive d Time (Source) Location / / Volume Laterality Blood 05/10/2018 9:00 AM 7:08 MANUFACTURING COORDINATOR AM MANUFACTURING COORDINATOR Vanessa Parra APRN C.N.P. LAB BLOOD NON ADD-ON Performing Organization Address City/State/ZIP Code Phon e Number [facility] [address] [place] [address] CENTER documented in this encounter Visit Diagnoses Not on filedocumented in this encounter Care Teams Hand Zipper Trimmer Relationship Specialty Start Date End Date Elsewhere, Pcp PCP - General Family Medicine 07/29/17 documented as of this encounter
--- OUTSIDE RECORDS SUMMARY | 2022-04-13 12:35 | XMS_ITS | Encounter Summary ---
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 [address] [place] [phone] 04/25/2022 Office Visit Otorhinolaryngology Dex Matta APRN, C.N.P., M.S.N. [address] [place] [phone] 05/08/2022 Appointment Laboratory Medicine Angélica Granger P.A.-C. [address] [place] [phone] 05/08/2022 Clinical Admitting/Central Communication Scheduling 05/10/2022 Appointment Radiology Jeremie Rose M.D. [address] [place] [phone] 05/10/2022 Comprehensive Visit Orthopedic Surgery Warner Graves M.D. [address] [place] [phone] 05/22/2022 Appointment Laboratory Medicine Angélica Granger P.A.-C. [address] [place] [phone] 06/05/2022 Appointment Laboratory Medicine Angélica Granger P.A.-C. [address] [place] [phone] 06/19/2022 Appointment Laboratory Medicine Angélica Granger P.A.-C. [address] [place] [phone] 07/03/2022 Appointment Laboratory Medicine Angélica Granger P.A.-C. [address] [place] [phone] 07/17/2022 Appointment Laboratory Medicine Angélica Granger P.A.-C. [address] [place] [phone] 07/31/2022 Appointment Laboratory Medicine Angélica Granger P.A.-C. [address] [place] [phone] 08/14/2022 Appointment Laboratory Medicine Angélica Granger P.A.-C. [address] [place] [phone] 08/28/2022 Appointment Laboratory Medicine Angélica Granger P.A.-C. [address] [place] [phone] documented as of this encounter Visit Diagnoses Not on filedocumented in this encounter Additional Health Concerns Infection Onset Date Last Indicated Resolved Time COVID19 Pending 12/13/2019 12/13/2019 12/14/2019 11:03 AM CDT COVID19 Pending 01/26/2020 01/27/2020 01/28/2020 12:12 AM CDT documented as of this encounter Care Teams Tobacco Packing Machine Operator Relationship Specialty Start Date End Date Elsewhere, Pcp PCP - General Family Medicine 07/29/17 [facility] - Laboratory Medicine 04/12/[address] [phone] documented as of this encounter
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
--- OUTSIDE RECORDS SUMMARY | 2022-04-13 12:36 | XMS_ITS | Encounter Summary ---
:1955 Author Organization [facility] Address [address] [place] [address] Care Team Providers Name Role Phone Elsewhere, Pcp Primary Care Provider Unavailable Encounter Details Date Type Department Care Team Description 03/25/2018 Hospital Encounter Department of Neo Bowman For Follow Up Examination After Completed Treatment For Conditions Other Than Malignant Neoplasm ; Radiology, Kd Millard M.D. 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 capsule clopidogrel (PLAVIX) 75 Take 1 tablet by 0 201603/26/2018 mg tablet mouth daily. Maintenance. docosahexanoic acid/epa Take 1 capsule by 0 05/3003/26/2018 (FISH OIL ORAL) mouth daily. doxazosin (CARDURA) 8 mg Take 1 tablet (8 mg 90 tablet 3 01/25/2019 tabletIndications: total) by mouth Hypertension Essential daily. Take at Primary night fluticasone (FLONASE Administer 1 spray 0 017 02/07/2020 ALLERGY RELIEF) 50 into affected mcg/actuation nasal nostril(s) daily as spray needed. One to two sprays per nostril daily for allergies; mostly for fall allergies ipratropium (ATROVENT) Administer 2 sprays 0 07/201611/13/2020 42 mcg (0.06 %) nasal into affected spray nostril(s) 4 (four) times a day as needed for rhinitis. Maintenance Lactobac 1 capsule 2 (two) 0 04/25/2017 018 no.41/Bifidobact no.7 times a day as (PROBIOTIC-10 ORAL) needed. Maintenance, compound lamoTRIgine (LaMICtal) Take 1 tablet by 0 [...] 201712/25/2018 mg tablet mouth daily. Restarted on 10-4-17. Maintenance. traZODone (DESYREL) 100 Take 1 tablet by 0 201610/12/2020 mg tablet mouth at bedtime as needed for sleep. Maintenance documented as 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 [address] [place] [phone] 04/25/2022 Office Visit Otorhinolaryngology Dex Matta APRN, C.N.P., M.S.N. [address] [place] [phone] 05/08/2022 Appointment Laboratory Medicine Angélica Granger P.A.-C. [address] [place] [phone] 05/08/2022 Clinical Admitting/Central Communication Scheduling 05/10/2022 Appointment Radiology Jeremie Rose M.D. [address] [place] [phone] 05/10/2022 Comprehensive Visit Orthopedic Surgery Warner Graves M.D. [address] [place] [phone] 05/22/2022 Appointment Laboratory Medicine Angélica Granger P.A.-CDemetrius [address] [place] [phone] 06/05/2022 Appointment Laboratory Medicine Angélica Granger P.A.-CDemetrius [address] [place] [phone] 06/19/2022 Appointment Laboratory Medicine Angélica Granger P.A.-C. [address] [place] [phone] 07/03/2022 Appointment Laboratory Medicine Angélica Granger P.A.-C. [address] [place] [phone] 07/17/2022 Appointment Laboratory Medicine Angélica Granger P.A.-C. [address] [place] [phone] 07/31/2022 Appointment Laboratory Medicine Angélica Granger P.A.-C. [address] [place] [phone] 08/14/2022 Appointment Laboratory Medicine Angélica Granger P.A.-C. [address] [place] [phone] 08/28/2022 Appointment Laboratory Medicine Angélica Granger P.A.-C. [address] [place] [phone] documented as of this encounter Procedures Procedure Name Priority Date/Time Associated Comments Diagnosis US AORTA ILIAC RAD - Routine 03/25/2018 1:59 Encounter For Results for this ARTERIES (most inpatients PM CDT Follow Up procedure a re in BILATERAL WITH and all Examination After the resu lts DOPPLER outpatients) Completed section. Treatment For Conditions Other Than Malignant Neoplasm Pretransplant Recipient Evaluation Exam Chronic Kidney Disease Stage 4 Glomerular Filtration Rate 15-29 (HCC) documented in this encounter Results US Aorta Inferior Vena Cava Iliac Bilateral with Doppler (03/25/2018 1:59 PM CDT) Anatomical Region Laterality Modality Abdomen, Pelvis, Ultrasound RST LOS, Ultrasound ARZ LOS, Pranav ateral Ultrasound Ultrasound FLA LOS Specimen (Source) Anatomical Collection Method Collection Time Re ceived Time Location / / Volume Laterality 03/25/2018 2:03 PM CDT Impressions 03/25/2018 3:29 PM CDT IMPRESSION: ??Mildly ectatic right common iliac artery but otherwise normal pre-kidney transplant evaluation. Narrative 03/25/2018 3:29 PM CDT EXAM: US AORTA INFERIOR VENA CAVA ILIAC BILATERAL Exam performed with color and spectral D oppler analysis. COMPARISON: Ultrasound abdomen complete 08/21/2017 FINDINGS: ??Distal abdominal aorta and l eft common iliac artery are patent and normal in caliber. Mildly ectatic right common iliac artery (1.7 cm). ??The bilateral common iliac, external iliac, and common femoral arteries are patent and negative for stenosis, although a se gment of the distal left external iliac artery is obscured by overlying bowel ga s. No significant atheromatous plaque noted. Procedure Note Madhav Beckwith M.D. - 03/25/2018Forma tting of this note might be different from the original. EXAM: US AORTA INFERIOR VENA CAVA ILIAC BILATERAL Exam performed with color and spectral D oppler analysis. COMPARISON: Ultrasound abdomen complete 08/21/2017 FINDINGS: Distal abdominal aorta and lef t common iliac artery are patent and normal in caliber. Mildly ectatic right common iliac artery (1.7 cm). The bilateral common iliac, external iliac, and common femoral arteries are patent and negative for stenosis, although a se gment of the distal left external iliac artery is obscured by overlying bowel ga s. No significant atheromatous plaque noted. IMPRESSION: Mildly ectatic right common iliac artery but otherwise normal pre-kidney transplant evaluation. Neo HEREDIA US PROCEDURES documented in this encounter Visit Diagnoses Diagnosis Encounter For Follow Up Examination Afte r Completed Treatment For Conditions Other Than Malignant Neoplasm Pretransplant Recipient Evaluation Exam Chronic Kidney Disease Stage 4 Glomerula r Filtration Rate 15-29 (HCC) documented in this encounter Additional Health Concerns Assessment Noted Time PHQ-9 Depression Total Score: 5 03/24/2018 9:15 PM CDT documented as of this encounter Care Teams Supervisor Bridges And Buildings Relationship Specialty Start Date End Date Elsewhere, Pcp PCP - General Family Medicine 07/29/17 documented as of this encounter
--- OUTSIDE RECORDS SUMMARY | 2022-04-13 12:36 | XMS_ITS | Encounter Summary ---
:1955 Author Organization [facility] Address [address] [place] [address] Care Team Providers Name Role Phone Elsewhere, Pcp Primary Care Provider Unavailable Encounter Details Date Type Department Care Team Description 03/25/2018 Hospital Encounter Department of Neo Bowman Pret nsplant Recipient Evaluation Exam; Radiology, Russel Millard M.D. 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 [address] [place] [phone] 04/25/2022 Office Visit Otorhinolaryngology Dex Matta APRN C.NDemetriusP., M.S.N. [address] [place] [phone] 05/08/2022 Appointment Laboratory Medicine Angélica Granger P.A.-C. [address] [place] [phone] 05/08/2022 Clinical Admitting/Central Communication Scheduling 05/10/2022 Appointment Radiology Jeremie Rose M.D. [address] [place] [phone] 05/10/2022 Comprehensive Visit Orthopedic Surgery Warner Graves M.D. [address] [place] [phone] 05/22/2022 Appointment Laboratory Medicine Angélica Granger P.A.-C. [address] [place] [phone] 06/05/2022 Appointment Laboratory Medicine Agnélica Granger P.A.-C. [address] [place] [phone] 06/19/2022 Appointment Laboratory Medicine Angélica Granger P.A.-C. [address] [place] [address] [phone] 07/03/2022 Appointment Laboratory Medicine Angélica Granger P.A.-C. [address] [place] [phone] 07/17/2022 Appointment Laboratory Medicine Angélica Granger P.A.-C. [address] [place] [phone] 07/31/2022 Appointment Laboratory Medicine Angélica Granger P.A.-C. [address] [place] [phone] 08/14/2022 Appointment Laboratory Medicine Angélica Granger P.A.-C. [address] [place] [phone] 08/28/2022 Appointment Laboratory Medicine Angélica Granger P.A.-C. [address] [place] [phone] documented as of this encounter Procedures Procedure Name Priority Date/Time Associated Diagnosis Comme nts DX CHEST AP OR PA Routine 03/25/2018 9:24 AM Pretransplant Res ults for this AND LATERAL 2 CDT Recipient Evaluation proced ure are in VIEWS Exam the results Chronic Kidney Disease secti on. Stage 4 Glomerular Filtration Rate 15-29 (HCC) documented in this encounter Results DX Chest AP or PA and Lateral 2 Views (03/25/2018 9:24 AM CDT) Anatomical Region Laterality Modality Chest, Thoracic RST LOS, Thoracic ARZ LOS, Thoracic N/A Digital Radiography FLA LOS Specimen (Source) Anatomical Collection Method Collection Time Re ceived Time Location / / Volume Laterality 03/25/2018 9:37 AM CDT Impressions 03/25/2018 10:27 AM CDT IMPRESSION: ??No significant change since 08/21/2017. Aortic calcifications. Chest otherwise negative. Narrative 03/25/2018 10:27 AM CDT EXAM: ??DX CHEST AP OR PA AND LATERAL 2 VIEWS Procedure Note Raphael Vazquez M.D. - 03/25/2018Formattin g of this note might be different from the original. EXAM: DX CHEST AP OR PA AND LATERAL 2 EWS IMPRESSION: No significant change since 08/21/2017. Aortic calcifications. Chest otherwise negative. [facility] DAREN RAMIRES documented in this encounter Visit Diagnoses Diagnosis Pretransplant Recipient Evaluation Exam Chronic Kidney Disease Stage 4 Glomerula r Filtration Rate 15-29 (HCC) documented in this encounter Additional Health Concerns Assessment Noted Time PHQ-9 Depression Total Score: 5 03/24/2018 9:15 PM CDT documented as of this encounter Care Teams Strategic Communications Specialist Relationship Specialty Start Date End Date Elsewhere, Pcp PCP - General Family Medicine 07/29/17 documented as of this encounter
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
--- OUTSIDE RECORDS SUMMARY | 2022-04-13 12:36 | XMS_ITS | Encounter Summary ---
:1955 Author Organization [facility] Address [address] [place] [address] Care Team Providers Name Role Phone Elsewhere, Pcp Primary Care Provider Unavailable Encounter Details Date Type Department Care Team Description 02/24/2018 Hospital Department of Uri Rico M.D. 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 Restarted on 03-26-17. Maintenance. traZODone (DESYREL) 100 Take 1 tablet by 0 201610/12/2020 mg tablet mouth at bedtime as needed for sleep. Maintenance documented as 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 [address] [place] [phone] 04/25/2022 Office Visit Otorhinolaryngology Dex Matta APRN, C.N.P., M.S.N. [address] [place] [phone] 05/08/2022 Appointment Laboratory Medicine Angélica Granger P.A.-C. [address] [place] [phone] 05/08/2022 Clinical Admitting/Central Communication Scheduling 05/10/2022 Appointment Radiology Jeremie Rose M.D. [address] [place] [phone] 05/10/2022 Comprehensive Visit Orthopedic Surgery Warner Graves M.D. [address] [place] [phone] 05/22/2022 Appointment Laboratory Medicine Angélica Granger P.A.-C. [address] [place] [phone] 06/05/2022 Appointment Laboratory Medicine Angélica Granger P.A.-C. [address] [place] [phone] 06/19/2022 Appointment Laboratory Medicine Agnélica Granger P.A.-C. [address] [place] [phone] 07/03/2022 Appointment Laboratory Medicine Angélica Granger P.A.-C. [address] [place] [phone] 07/17/2022 Appointment Laboratory Medicine Angélica Granger P.A.-C. [address] [place] [phone] 07/31/2022 Appointment Laboratory Medicine Angélica Granger P.A.-C. [address] [place] [phone] 08/14/2022 Appointment Laboratory Medicine Angélica Granger P.A.-C. [address] [place] [address] [phone] 08/28/2022 Appointment Laboratory Medicine Angélica Granger P.A.-C. [address] [place] [phone] documented as of this encounter Procedures Procedure Name Priority Date/Time Associated Diagnosis Comme nts EEG ROUTINE - AWAKE Routine 02/24/2018 3:12 PM [facility] Neurolog ical Results for this AND SLEEP CDT ([facility]) procedure are i n the results section. documented in this encounter Results EEG routine - awake [...] channel. Report: The short-term video EEG recordi during wakefulness contains 9-10 Hz alpha activity [...] documented in this encounter Visit Diagnoses Diagnosis [facility] (HCC) documented in this encounter Additional Health Concerns Assessment Noted Time PHQ-9 Depression Total Score: 1 08/26/2017 10:50 AM EUGENIO T documented as of this encounter Care Teams Chemical Detection Expert Relationship Specialty Start Date End Date Elsewhere, Pcp PCP - General Family Medicine 07/29/17 documented as of this encounter
--- OUTSIDE RECORDS SUMMARY | 2022-04-13 12:36 | XMS_ITS | Encounter Summary ---
:1955 Author Organization [facility] Address [address] [place] [address] Care Team Providers Name Role Phone Elsewhere, Pcp Primary Care Provider Unavailable Encounter Details Date Type Department Care Team Description 02/11/2018 Clinical Communication Curt Loera, Center for Patricia Azevedo R.N., Transplantation and C.C.T.C. 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 - 02/11/2018 8:[address] Chavez has reviewed the patient's EMR and has recommended proceeding with kidney transplant evaluation. Type of Appointment: New Eval On Dialysis: No SPK: No Chemdep: No Mood Consult: Yes Cardiology Consult: No Extra Consults: none Requested Provider: none Patient Not Available to Come: none Angiogram: none Colonoscopy: here Previous Tx W/U: none documented in this encounter Plan of Treatment Upcoming Encounters Date Type Specialty Care Team Description 04/24/2022 Appointment Laboratory Medicine Angélica Granger P.A.-C. [address] [place] [phone] 04/25/2022 Office Visit Otorhinolaryngology Dex Matta APRN, C.N.P., M.S.N. [address] [place] [phone] 05/08/2022 Appointment Laboratory Medicine Angélica Granger P.A.-C. [address] [place] [address] [phone] 05/08/2022 Clinical Admitting/Central Communication Scheduling 05/10/2022 Appointment Radiology Jeremie Rose M.D. [address] [place] [phone] 05/10/2022 Comprehensive Visit Orthopedic Surgery Warner Graves M.D. [address] [place] [phone] 05/22/2022 Appointment Laboratory Medicine Angélica Granger P.A.-C. [address] [place] [phone] 06/05/2022 Appointment Laboratory Medicine Angélica Granger P.A.-C. [address] [place] [phone] 06/19/2022 Appointment Laboratory Medicine Angélica Granger P.A.-C. [address] [place] [phone] 07/03/2022 Appointment Laboratory Medicine Angélica Granger P.A.-C. [address] [place] [phone] 07/17/2022 Appointment Laboratory Medicine Angélica Granger P.A.-C. [address] [place] [phone] 07/31/2022 Appointment Laboratory Medicine Angélica Granger P.A.-C. [address] [place] [phone] 08/14/2022 Appointment Laboratory Medicine Angélica Granger P.A.-C. [address] [place] [phone] 08/28/2022 Appointment Laboratory Medicine Angélica Granger P.A.-C. [address] [place] [phone] documented as of this encounter Visit Diagnoses Not on filedocumented in this encounter Additional Health Concerns Assessment Noted Time PHQ-9 Depression Total Score: 1 08/26/2017 10:50 AM CS T documented as of this encounter Care Teams Bag Bailer Relationship Specialty Start Date End Date Elsewhere, Pcp PCP - General Family Medicine 07/29/17 documented as of this encounter
--- OUTSIDE RECORDS SUMMARY | 2022-04-13 12:36 | XMS_ITS | Encounter Summary ---
:1955 Author Organization [facility] Address [address] [place] [id number] Care Team Providers Name Role Phone Elsewhere, Pcp Primary Care Provider Unavailable Reason for Visit Transplant (Routine) - Closed Specialty Diagnoses / Procedures Referred By Contact Refer red To Contact Transplant Surgery / Diagnoses Pretransplant Recipient Evaluation Exam Chronic Kidney Disease Stage 4 Glomerular Filtration Rate 15-29 (HCC) [facility] M[facility]DD[facility]et[facility] [address] [place] [phone] Referral ID Status Reason Start Date Expiration Date Visits Requ ested Visits Authorized [id number] Closed 02/16/2018 02/16/2019 1 1 Encounter Details Date Type Department Care Team Description 03/25/2018 Clinical Support Monserrat Richmond M.D. [address] [place] [phone] Pretransplant Recipient Evaluation Exam; Milka for Antionette Cloud L.I.C.S.W., M.S.W. 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 - 03/25/2018 3:00 PM CDT Transplant Psychosocial Assessment SUBJECTIVE DEMOGRAPHIC INFORMATION Referral Source: Provider/Service Referral Name: Dr. Bowman, Kidney Transplant Team Person(s) present during interview: Patient Primary care clinic and provider: Primary Care Physician Primary Language: Slovenian Oyster Fisherman services used: [employer] Used: No Legal Decision Maker: Self Citizenship: [place] Citizen Race/Ethnicity: White Descent REASON FOR CONSULT Outpatient social work visit for comprehensive biopsychosocial assessment and psychoeducation as part of patient???s candidacy for kidney transplant. Disclaimer: The Patient/Caregiver was advised regarding the various topics to be interviewed during this evaluation. Patient consented to proceed. The information provided in the assessment is based onreview of the medical record as well as the face to face interview with the Patient/Caregiver. The Pa tient/Caregiver was advised that the content of this interview will be shared with the health care team. It was discussed with the patient that staff are mandated reporters and they reported understanding. Role of pick and shovel worker: Identified the role of the transplant director social service. Limits of confidentiality reviewed: Explained that everything we discussed is confidential and the way the information isshared among the multidisciplinary team members. Where was the interview: [facility] Compliance:no concerns Knowledge about transplant process & procedure: (Indicate areas where patient is knowledgeable) selection process benefits/risks of transplant post-transplant follow up waitlist status length/course of hospitalization immunosuppression therapy personal monitoring & surveillance unknown length of wait time rehab/recovery relocation Past Medical/Surgical History: No past medical history on file. Past [...] HERNIA REPAIR N/A 09/03/2013 >Umbilical hernia repair. SOCIAL HISTORY Family of Origin: Patient was born and raised by his biological mother and father in [place], [place]. His mother is living at 87 and his father is . He has one older sister who at a young age and one youngersister who lives in [place]. Patient reports a close relationship with his mother and sister. Marital Status / Family / Household: Patient is single, never , and does not have any children. Education/Employment: Highest level of education: Education: Bachelor's degree Literacy: Patient is literate Employment status: Employment: Retired Is the patient currently working for income? no Patient's plan for extended time off for recovery: patient is retired. Work history/Type of Work: patient retired from [employer] 2009 and recently sold apartment property. history: No background Legal history: Patient denies current legal issues Hobbies: patient enjoys riding motorcycle and spending time with friends and family. Spiritual practices/Orthodox/Culture: Quaker, Psychosocial Risk Factors impacting the patient: Psychosocial Risk Factors: Mental Health Abuse, Neglect, Maltreatment, Trauma: Current: None reported. Past: None reported. Early growth and development: The patient met social and developmental milestones as expected. Support Systems: patient receives support from his mother, sister, and friends. Willingness/Desire for Transplant: What is the patient's motivation for transplant? Patient is motivated for transplant to avoid a needfor dialysis. Does the patient have any concerns about the transplant? None identified at this time. Transplant SW assessment is that the patient asked appropriate/meaningful questions. ENVIRONMENTAL SUPPORTS Current Living Situation: Private residence Patient's Home Environment: House Anticipated modifications to the patient's home environment:None FUNCTIONAL STATUS (ADL's and IADL's) Activities of Daily Living Functional Status: Independent Assistive Devices: None Type of Residence: Private residence Level of Assistance: Independent Behavior: Oriented It is anticipated that the patient will need assistance with tasks appropriate to the patient's age/development, None ASSISTIVE DEVICES Patient has the following equipment: None Patient anticipates potentially needing the following additional equipment: None CARE GIVERS Formal and Informal Resources: patient denies the use of formal resources at this time. Patient states he is unsure who his caregivers will be after the transplant. He states likely his sister and friend who were both caregivers after his liver transplant. The roles and responsibilities of the caregiver were discussed. Reviewed that caregiver role includes provision of support in the hospital for the greater part of the day, participate in all of the teachings preparing for care after discharge, provision of 24/7 care after discharge and transportation. Transportation: patient has his own transportation. Relocation Plan: patient understands the potential need to stay in [place] 2-4 weeks post transplant but is hopeful he will be able to return home earlier since he is local. He is provided lodging resources. FINANCES/INSURANCE Primary insurance: MEDICARE A AND B Secondary insurance: [employer] Does patient have a benefit for travel/lodging/meals? No Household information ?? Number of persons in household: 1 ?? Type of housing: Own Source of household income: Social Security skilled nursing income: Monthly income unknown Loss of income/Change in income: none Financial supports/resources: none Pharmacy [facility] [id number] [place] [address] - [address] AT [facility] [address] [facility] [phone] Pharmacy benefits education: Patient was educated and advised to determine the projected range of out of pocket expenses for post-transplant medications, depending on the type of pharmacy coverage provided by insurance, and notify the director social service regarding affordability. ADVANCE DIRECTIVES OBJECTIVE MENTAL HEALTH Psychosocial Risks - The Socket Puller advised the patient of the psychosocial risks of having a transplant including depression, anxiety, PTSD, guilt, dependence on a caregiver and financial stressors. Mental Health History: patient has a history of psychiatric hospitalization following his second liver transplant. He was diagnosed with Bipolar disorder and since reports no mainc episodes. He states,I kind of miss the thacker I would get. He reports no concerns about discontinuing his medication in the future and reports mental health stability for several years. He states at times it is hard for him to keep his attention and will be meeting with neurology in the near future. Patient was evaluated by Transplant Psychiatry on 03/27/18 and given a PACT of 2. Current psychological symptoms: Patient Appearance: Healthy, Well-groomed, Relaxed Behaviors Observed: Calm, Pleasant, Interactive Patient Level of Consciousness: Alert and oriented Status of Patient's Memory: Intact Patient Cooperation: Cooperative, Forthcoming Patient Mood: Euthymic Patient Affect: Mood-congruent Quality of Patient's Speech: Within normal limits for volume, rate and tone Descriptor of Thought Content: No abnormality Thought Process Descriptor: Intact Level of Judgement: Intact Other Mental Health Assessments PHQ 9 Score: 5 NIDHI 7 Score: 0 AUDIT-C: AUDIT 0; Action:Interpretation: SUBSTANCE USE Patient denies a history of tobacco and illicit drug use. He previously consumed alcohol socially until 2012. Current Stressors: patient denies current stressors. Coping: patient reports these personal coping mechanisms: Family support, Time with friends, Yoga/exercise and Motivation ASSESSMENT / PLAN IMPRESSION Patient is a 62 year old male from [place], [place] who presents today as part of his transplant evaluation. Patient appears to be coping appropriately although states it is difficult for him to hold attention. Patient appears familiar with transplant based on his previous liver transplants in 1998 and 2012. Despite previous mental health hospitalizations in 2012 following his second liver transplant patient is an acceptable candidate for transplant. Please see SIPAT and PACT scores below for additional information. Selection Conference Recommendation: Approval: At this time, the patient is recommended for approvalby social work as there are no apparent psychosocial barriers in proceeding with listing and transplantation/treatment. The multidisciplinary team will be advised of this recommendation for approval atthe selection conference meeting. SIPAT: SIPAT Score 25 PACT: SUPPORT SYSTEM- patient receives support from his mother, sister, and friends. He states his sister and a friend will be his primary caregivers post transplant as they were his caregivers after his most recent liver transplant. MENTAL HEALTH- patient has a history of psychiatric hospitalization in 2012 after his liver transplant where he was diagnosed with Bipolar. He states his symptoms are well managed and he has not had a manic episode since that time. He was given a PACT of 2 from Transplant Psychiatry on . LIFESTYLE- patient is retired and independent in his daily cares. Self report of medication compliance is good. He continued to consume alcohol after his liver transplant but reports no alcohol use since 2012. No financial concerns at this time. PACT Score: 2/4, patient is an acceptable candidate for transplant. INTERVENTIONS 1. Completed comprehensive psychosocial assessment with patient 2. Provided psychoeducation regarding positive coping strategies including deep breathing exercises,meditation and guided imagery. 3. Provided supportive counseling regarding the unique experience of coping with a chronic, life-threatening illness & transplantation. 4. Discussed Advance Health Care Directives with patient/family 5. Administered depression and anxiety screening tools as well as Alcohol Use Disorders Identification Test (AUDIT) screening tool.. 6. Provided referrals and linkage to community resources for meals/travel/lodging during time of transplant. 7. Provided education on weekly transplant patient and caregiver support groups. 8. Provided patient/family with folder of [facility] educational materials related to transplantation. 9. Discussed and provided psychoeducation on potential for mood changes following transplantation. 10. Reinforced the importance of careful attention to medical advice. 11. Reinforced the importance of a secure caregiving and travel plan. PLAN 1. Patient was provided my business card and encouraged to call if questions or concerns arise. 2. pick and shovel worker will review the patient's strengths and/or risk factors at the upcoming transplant selection conference. 3. pick and shovel worker will continue to follow throughout the continuum of care for updated assessments, support, and resource information. Ion Ward, M.S.W. 03/27/2018 Face to face time (for billing purposes) 30 minutes total time, 30 minutes for counseling. Diagnosis; Pretransplant recipient evaluation. documented in this encounter Plan of Treatment Upcoming Encounters Date Type Specialty Care Team Description 04/24/2022 Appointment Laboratory Medicine Angélica Granger P.A.-C. [address] [place] [phone] 04/25/2022 Office Visit Otorhinolaryngology Dex Matta APRN, C.N.P., M.S.N. [address] [place] [phone] 05/08/2022 Appointment Laboratory Medicine Angélica Granger P.A.-C. [address] [place] [phone] 05/08/2022 Clinical Admitting/Central Communication Scheduling 05/10/2022 Appointment Radiology Jeremie Rose M.D. [address] [place] [phone] 05/10/2022 Comprehensive Visit Orthopedic Surgery Warner Graves M.D. [address] [place] [phone] 05/22/2022 Appointment Laboratory Medicine Angélica Granger P.A.-C. [address] [place] [phone] 06/05/2022 Appointment Laboratory Medicine Angélica Granger P.A.-C. [address] [place] [phone] 06/19/2022 Appointment Laboratory Medicine Angélica Granger P.A.-C. [address] [place] [phone] 07/03/2022 Appointment Laboratory Medicine Angélica Granger P.A.-C. [address] [place] [phone] 07/17/2022 Appointment Laboratory Medicine Angélica Granger P.A.-C. [address] [place] [phone] 07/31/2022 Appointment Laboratory Medicine Angélica Granger P.A.-C. [address] [place] [phone] 08/14/2022 Appointment Laboratory Medicine Angélica Granger P.A.-C. [address] [place] [phone] 08/28/2022 Appointment Laboratory Medicine Angélica Granger P.A.-C. [address] [place] [phone] documented as of this encounter Visit Diagnoses Diagnosis Pretransplant Recipient Evaluation Exam Chronic Kidney Disease Stage 4 Glomerula r Filtration Rate 15-29 (HCC) documented in this encounter Additional Health Concerns Assessment Noted Time PHQ-9 Depression Total Score: 5 03/24/2018 9:15 PM CDT documented as of this encounter Care Teams Casket Upholsterer Relationship Specialty Start Date End Date Elsewhere, Pcp PCP - General Family Medicine 07/29/17 documented as of this encounter
--- OUTSIDE RECORDS SUMMARY | 2022-04-13 12:36 | XMS_ITS | Encounter Summary ---
:1955 Author Organization [facility] Address [address] [place] [address] Care Team Providers Name Role Phone Elsewhere, Pcp Primary Care Provider Unavailable Reason for Referral Transplant (Routine) - Closed Specialty Diagnoses / Procedures Referred By Contact Refer red To Contact Transplant Diagnoses Failure Renal Rst [facility] [address] [place] [address] Referral ID Status Reason Start Date Expiration Date Visits Requ ested Visits Authorized [id number] Closed 02/11/2018 02/11/2019 1 1 Reason for Visit Reason Onset Date Comments financial approval 02/11/2018 Encounter Details Date Type Department Care Team Description 02/11/2018 Clinical Curt Garces Preschedemile rosario formerly [facility] Communication Center for Provider approval Transplantation and Clinical Regeneration in [place], [place] [address] [place] [phone] Social History Tobacco Use Types Packs/Day Years [...] or slept in a snf (including now)? 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 [address] [place] [phone] 04/25/2022 Office Visit Otorhinolaryngology Dex Matta, RAMONA, C.N.P., M.S.N. [address] [place] [phone] 05/08/2022 Appointment Laboratory Medicine Angélica Granger, P.A.-C. [address] [place] [phone] 05/08/2022 Clinical Admitting/Central Communication Scheduling 05/10/2022 Appointment Radiology Jeremie Rose M.D. [address] [place] [phone] 05/10/2022 Comprehensive Visit Orthopedic Surgery Warner Graves M.D. [address] [place] [phone] 05/22/2022 Appointment Laboratory Medicine Angélica Granger P.A.-C. [address] [place] [phone] 06/05/2022 Appointment Laboratory Medicine Angélica Granger P.A.-C. [address] [place] [phone] 06/19/2022 Appointment Laboratory Medicine Angélica Granger P.A.-C. [address] [place] [phone] 07/03/2022 Appointment Laboratory Medicine Angélica Granger P.A.-C. [address] [place] [phone] 07/17/2022 Appointment Laboratory Medicine Angélica Granger P.A.-C. [address] [place] [phone] 07/31/2022 Appointment Laboratory Medicine Angélica Granger P.A.-C. [address] [place] [phone] 08/14/2022 Appointment Laboratory Medicine Angélica Granger P.A.-C. [address] [place] [phone] 08/28/2022 Appointment Laboratory Angélica Royal P.A.-C. [address] [place] [phone] Scheduled Referrals Name Type Priority Associated Order Schedule Diagnoses Transplant referral Outpatient Referral Routine Failure Renal Ordered: authorization and 02/11/2018 benefits check documented as of this encounter Visit Diagnoses Diagnosis Failure Renal - Primary documented in this encounter Additional Health Concerns Assessment Noted Time PHQ-9 Depression Total Score: 1 08/26/2017 10:50 AM EUGENIO T documented as of this encounter Care Teams Nitroglycerin Supervisor Relationship Specialty Start Date End Date Elsewhere, Pcp PCP - General Family Medicine 07/29/17 documented as of this encounter
--- OUTSIDE RECORDS SUMMARY | 2022-04-13 12:36 | XMS_ITS | Encounter Summary ---
:1955 Author Organization [facility] Address [address] [place] [id number] Care Team Providers Name Role Phone Elsewhere, Pcp Primary Care Provider Unavailable Reason for Referral Outpatient (Routine) - Closed Specialty Diagnoses / Procedures Referred By Contact Refer red To Contact Transplant Diagnoses Pretransplant Recipient Evaluation Exam Chronic Kidney Disease Stage 4 Glomerular Filtration Rate 15-29 (HCC) Ting Mead M.D. [facility] [address] [place] [phone] Referral ID Status Reason Start Date Expiration Date Visits Requ ested Visits Authorized [id number] Closed 02/16/2018 02/16/2019 1 1 Transplant (Routine) - Closed Specialty Diagnoses / Procedures Referred By Contact Refer red To Contact Transplant Surgery / Diagnoses Pretransplant Recipient Evaluation Exam Chronic Kidney Disease Stage 4 Glomerular Filtration Rate 15-29 (HCC) Ting Mead [facility] Transplant M.D. [address] [place] [phone] Referral ID Status Reason Start Date Expiration Date Visits Requ ested Visits Authorized [id number] Closed 02/16/2018 02/16/2019 1 1 Transplant (Routine) - Closed Specialty Diagnoses / Procedures Referred By Contact Refer red To Contact Transplant Surgery / Diagnoses Pretransplant Recipient Evaluation Exam Chronic Kidney Disease Stage 4 Glomerular Filtration Rate 15-29 (HCC) Ting Mead [facility] Transplant M.Louie [address] [place] [phone] Referral ID Status Reason Start Date Expiration Date Visits Requ ested Visits Authorized [id number] Closed 02/16/2018 02/16/2019 1 1 Transplant (Routine) - Closed Specialty Diagnoses / Procedures Referred By Contact Refer red To Contact Transplant Surgery / Diagnoses Pretransplant Recipient Evaluation Exam Chronic Kidney Disease Stage 4 Glomerular Filtration Rate 15-29 (HCC) Ting Mead [facility] Transplant [place] [address] [place] [phone] Referral ID Status Reason Start Date Expiration Date Visits Requ ested Visits Authorized [id number] Closed 02/16/2018 02/16/2019 1 1 Outpatient (Routine) - Closed Specialty Diagnoses / Procedures Referred By Contact Refer red To Contact Pharmacy Diagnoses Pretransplant Recipient Evaluation Exam Chronic Kidney Disease Stage 4 Glomerular Filtration Rate 15-29 (HCC) Ting Mead M.D. [facility] [address] [place] [phone] Referral ID Status Reason Start Date Expiration Date Visits Requ ested Visits Authorized [id number] Closed 02/16/2018 02/16/2019 1 1 Transplant (Routine) - Closed Specialty Diagnoses / Procedures Referred By Contact Refer red To Contact Transplant Surgery / Diagnoses Pretransplant Recipient Evaluation Exam Chronic Kidney Disease Stage 4 Glomerular Filtration Rate 15-29 (HCC) Ting Mead [facility] Transplant [place] [address] [place] [phone] Referral ID Status Reason Start Date Expiration Date Visits Requ ested Visits Authorized [id number] Closed 02/16/2018 02/16/2019 1 1 Specialty Diagnoses / Procedures Referred By Contact Refer mindy To Contact Ting Mead M. D. [facility] [address] [place] [phone] Referral ID Status Reason Start Date Expiration Date Visits Requ ested Visits Authorized Transplant (Routine) - Closed Specialty Diagnoses / Procedures Referred By Contact Refer mindy To Contact Transplant Surgery / Diagnoses Pretransplant Recipient Evaluation Exam Chronic Kidney Disease Stage 4 Glomerular Filtration Rate 15-29 ([facility]) Ting Mead [facility] Transplant [place] [address] [place] [phone] Referral ID Status Reason Start Date Expiration Date Visits Requ ested Visits Authorized [id number] Closed 02/16/2018 02/16/2019 1 1 Reason for Visit Reason Onset Date Comments Need Orders - Olena 02/16/2018 Encounter Details Date Type Department Care Team Description 02/16/2018 Clinical Maurizio Richmond - Olena [facility] for Ting Millard, Transplantation and Sada Clinical [facility] [address] [place] [address] in [facility] [phone] [place] [address] [place], [place] (Work) [phone] Social History Tobacco Use Types Packs/Day Years [...] slept in a group home (including now)? Sex Assigned at Date Recorded Male 05/16/2020 4:27 PM [employer] documented as of this encounter Miscellaneous Notes Addendum Note - Ting Mead M.D. - 02/16/2018 4:41 PM CDT Addended by: TING MEAD on: 02/16/2018 04:41 PM Modules accepted: Orders Addendum Note - Patricia Oakes R.N., C.C.T.C. - 02/16/2018 2:11 PM CDT Addended by: PATRICIA OAKES on: 02/16/2018 02:11 PM Modules accepted: Orders, SmartSet Telephone Encounter - Flaquita Griffiths - 02/16/2018 9:40 AM CDT Patient is scheduled on 03/[address] Mead. Please order Testing. Thank you! documented in this encounter Plan of Treatment Upcoming Encounters Date Type Specialty Care Team Description 04/24/2022 Appointment Laboratory Medicine Angélica Granger P.A.-C. [address] [place] [phone] 04/25/2022 Office Visit Otorhinolaryngology Dex Matta APRN, C.N.P., M.S.N. [address] [place] [phone] 05/08/2022 Appointment Laboratory Medicine Angélica Granger P.A.-C. [address] [place] [phone] 05/08/2022 Clinical Admitting/Central Communication Scheduling 05/10/2022 Appointment Radiology Jeremie Rose M.D. [address] [place] [phone] 05/10/2022 Comprehensive Visit Orthopedic Surgery Warner Graves M.D. [address] [place] [phone] 05/22/2022 Appointment Laboratory Medicine Angélica Granger P.A.-C. [address] [place] [phone] 06/05/2022 Appointment Laboratory Medicine Angélica Granger P.A.-C. [address] [place] [phone] 06/19/2022 Appointment Laboratory Medicine Angélica Granger P.A.-C. [address] [place] [phone] 07/03/2022 Appointment Laboratory Medicine Angélica Granger P.A.-C. [address] [place] [phone] 07/17/2022 Appointment Laboratory Medicine Angélica Granger P.A.-C. [address] [place] [phone] 07/31/2022 Appointment Laboratory Medicine Angélica Granger P.A.-C. [address] [place] [phone] 08/14/2022 Appointment Laboratory Medicine Angélica Granger P.A.-C. [address] [place] [phone] 08/28/2022 Appointment Laboratory Medicine Angélica Granger P.A.-C. [address] [place] [phone] Scheduled Referrals Name Type Priority Associated Diagnoses Order S [facility] Transplant - Surgery Outpatient Referral Routine Pretransplant Expected: consult (clinic) Recipient Evaluation 08/2017 Exam (Approximate), Chronic Kidney Expires: Disease Stage 4 02/16/2019 Glomerular Filtration Rate 15-29 (HCC) Transplant - Kidney Outpatient Referral Routine Pretransplant Expected: pancreas pre Recipient Evaluation 018 education visit Exam (Approximate), (clinic) Chronic Kidney Expires: Disease Stage 4 02/16/2019 Glomerular Filtration Rate 15-29 (HCC) Transplant - Outpatient Referral Routine Pretransplant Expecte d: Nutrition consult Recipient Evaluation (clinic) Exam (Approximate), Chronic Kidney Expires: Disease Stage 4 02/16/2019 Glomerular Filtration Rate 15-29 (HCC) Pharmacy - Outpatient Referral Routine Pretransplant Expecte d: Medication therapy Recipient Evaluation 1 management - Exam (Approximate), transplant consult Chronic Kidney Expires : (clinic) Disease Stage 4 02/16/2019 Glomerular Filtration Rate 15-29 (HCC) Transplant - Nurse Outpatient Referral Routine Pretransplant E xpected: coordinator consult Recipient Evaluation 03/25/2018 (clinic) Exam (Approximate), Chronic Kidney Expires: Disease Stage 4 02/16/2019 Glomerular Filtration Rate 15-29 (HCC) Transplant - Social Outpatient Referral Routine Pretransplant Expected: work consult Recipient Evaluation (clinic) Exam (Approximate), Chronic Kidney Expires: Disease Stage 4 02/16/2019 Glomerular Filtration Rate 15-29 (HCC) Transplant - Outpatient Referral Routine Pretransplant Expecte d: Financial assessment Recipient Evaluation 03/25/2018 consult (clinic) Exam (Approximate), Chronic Kidney Expires: Disease Stage 4 02/16/2019 Glomerular Filtration Rate 15-29 (HCC) Transplant Kidney Outpatient Referral Routine Pretransplant Ex pected: office visit Recipient Evaluation (clinic) Exam (Approximate), Chronic Kidney Expires: Disease Stage 4 02/16/2019 Glomerular Filtration Rate 15-29 (HCC) documented as of this encounter Results ECHO STRESS 2D WITH COLOR AND DOPPLER (03/26/2018 8:54 AM CDT) [facility] gist Method Time Signature Ejection Fraction [...] from the original. See PDF For Result Ting Mead M.D. CV ECHO PROCEDURES US Aorta Inferior Vena Cava Iliac Bilateral [...] artery but otherwise normal pre-kidney transplant evaluation. Ting Mead M.D. IMG US PROCEDURES Gram Stain, Urine (03/25/2018 9:35 AM CDT) [facility] Method Time Signature Gram's Stain, Negative 03/25/2018 [facility] Screen, U 9:[address] [facility] Comment: ----ADDITIONAL INFORMATION---- This test has been modified from the man ufacturer's instructions. Its performance characteri stics were determined by [facility] in a manner co nsistent with CLIA requirements. This test has not bee n cleared or approved by the U.S. Food and Drug Admin istration. Specimen Anatomical Collection Method Collection Time Receive d Time (Source) Location / / Volume Laterality Urine (Urine, 03/25/2018 9:35 AM 03/25/20 18 9:35 Clean Catch) CDT AM CDT Ting Mead M.D. LAB URINE ORDERABLES Performing Organization Address City/State/ZIP Code Phon e Number [facility] - [address] [place], [place] [address] [facility] [employer] (ABNORMAL) Urinalysis with Microscopic (03/25/2018 9:35 AM CDT) [facility] Method Time Signature Source Midstream 03/25/2018 [facility] 9:[address] [facility] Appearance Normal Normal 03/25/2018 [facility] 10:[address] [facility] Osmolality, U 495 150 - 1150 03/25/2018 [facility] mOsm/kg 11:[address] [facility] pH, U 6.4 4.5 - 8.0 03/25/2018 [facility] 11:[address] [facility] Comment: ----ADDITIONAL INFORMATION---- This test was developed and its performa nce characteristics determined by [facility] in a manner co nsistent with CLIA requirements. This test has not bee n cleared or approved by the U.S. Food and Drug Admin istration. Glucose 3 0 - 15 mg/dL 03/25/2018 10:42 AM CDT [facility] S Protein, U 75 (H) <26 mg/dL 03/25/2018 10:42 AM CDT [facility] Comment: ----ADDITIONAL INFORMATION---- On 12/17/2016 the total protein assay me thod changed resulting in approximately a 15% increase in prote in values. Protein/Osmolality 1.52 (H) <0.42 Ratio 03/25/2018 11:54 AM [facility] Comment: ----ADDITIONAL INFORMATION---- On 12/17/2016 the total protein assay me thod changed resulting in approximately a 15% increase in prote in values. Predicted 24 Hr 1399 mg/24 h 03/25/2018 11:54 AM [facility] Protein T [facility] Predicted Range 444-4408 mg/24 h 03/25/2018 11:54 AM [facility] Hemoglobin, QL Small (A) Negative 03/25/2018 12:01 PM [facility] Specimen Anatomical Collection Method Collection Time Receive d Time (Source) Location / / Volume Laterality Urine (Urine, 03/25/2018 9:35 AM 03/25/20 18 Clean Catch) CDT 10:42 AM CDT Ting Mead M.D. LAB URINE ORDERABLES Performing Organization Address City/[facility]/ZIP Code Phon e Number [facility] - [address] Cee/Kid Storage, Urine (03/25/2018 9:35 AM CDT) [facility] gist Method Time Signature Cee/Kid Collected 03/25/2018 [facility] Storage, U 11:[address] [facility] Specimen Anatomical Collection Method Collection Time Receive d Time (Source) Location / / Volume Laterality Urine (Urine, 03/25/2018 9:35 AM 03/25/20 18 Clean Catch) CDT 11:48 AM CDT Ting Mead M.D. LAB URINE ORDERABLES Performing Organization Address [facility]/ZIP [facility] [place] e Number [facility] - [address] DX Chest AP or PA and [...] since 08/21/2017. Aortic calcifications. Chest otherwise negative. Ting Mead M.D. IMG DIAGNOSTIC IMAGING PROCE [facility] ECG 12 Lead (03/25/2018 8:24 AM CDT) P athologist Signature Ventricular Rate 48 BPM MUSE ECG/Min CT Interval 148 ms MUSE QRSD Interval 96 ms MUSE QT Interval 464 ms MUSE QTC Interval 414 ms MUSE P [place] 51 degrees MUSE R [place] -4 degrees MUSE T Wave [place] 58 degrees MUSE Specimen Anatomical Collection Method Collection Time Receive d Time (Source) Location / / Volume Laterality 03/25/2018 8:24 AM 8 8:28 CDT AM CDT Impressions MUSE - 03/25/2018 8:29 AM CDT Marked sinus bradycardia Otherwise normal ECG When compared with ECG of 24-MAR-2017 05 :52, No significant change was found Narrative This result has an attachment that is no t available. Ting Mead M.D. ECG ORDERABLES Performing Organization Address City/State/ZIP Code Phon e Number MUSE MUSE NA HIV-1 and HIV-2 Antigen and Antibody Routine Screen, Plasma (03/25/2018 7:46 AM CDT) P athologist Signature HIV-1/-2 Ag Negative Negative 03/25/2018 [facility] and Ab Screen, 11:40 AM CDT [facility] Comment: Negative result does not rule out HIV in fection. If exposure to HIV infection occurred <14 d ays ago, contact the laboratory to request additi on of HIV-1 RNA detection / quantification test (HIV QN). Specimen Anatomical Collection Method Collection Time Receive d Time (Source) Location / / Volume Laterality Blood (Blood, 03/25/2018 7:46 AM 03/25/20 18 Venous) CDT 10:57 AM CDT Ting Mead M.D. LAB MICROBIOLOGY - BLOOD ORD ERABLES Performing Organization Address City/[facility]/ZIP Code Phon e Number [facility] [address] [place] [phone] [facility] (ABNORMAL) Troponin T (03/25/2018 7:46 AM CDT) [facility] Signature Troponin T, 22 (H) <=15 ng/L 03/25/2018 [facility] 5th gen 9:18 AM CDT LABORATORIES - [facility] Specimen Anatomical Collection Method Collection Time Receive d Time (Source) Location / / Volume Laterality Blood (Blood, 03/25/2018 7:46 AM 03/25/20 18 7:54 Venous) CDT AM CDT Ting Mead M.D. LAB BLOOD ADD-ON Performing Organization Address [facility] Code Phon e Number [facility] - [address] [place] [phone] [facility] PT (Prothrombin Time) with INR (03/25/2018 7:46 AM CDT) [facility] Method Time Signature Prothrombin 10.5 9.4 - 12.5 03/25/2018 [facility] Time, P sec 8:21 AM CDT [facility]ATORIES - [facility] INR 1.0 0.9 - 1.1 03/25/2018 [facility] 8:21 AM CDT [facility]ATOR[facility] - [facility] Comment: ----ADDITIONAL INFORMATION---- Standard intensity warfarin therapeutic range: 2.0 to 3.0 ?? High intensity warfarin therapeutic rang e: 2.5 to 3.5 Specimen Anatomical Collection Method Collection Time Receive d Time (Source) Location / / Volume Laterality Blood (Blood, 03/25/2018 7:46 AM 03/25/20 18 7:54 Venous) CDT AM CDT Ting Mead M.D. LAB BLOOD ADD-ON Performing Organization Address [facility] Code Phon e Number [facility] - [address] (ABNORMAL) CBC with Differential (03/25/2018 7:46 AM CDT) [facility] Method Time Signature Hemoglobin 12.3 (L) 13.2 - 03/25/2018 [facility] 16.6 g/dL 8:12 AM CDT LABORATORIES - [facility] Hematocrit 36.8 (L) 38.3 - 03/25/2018 [facility] 48.6 % 8:12 AM CDT [facility]ATOR[facility] - [facility] Erythrocytes 3.96 (L) 4.35 - 03/25/2018 [facility] 5.65 8:12 AM CDT LABORATORIES - x10(12)/L [facility] MCV 92.9 78.2 - 03/25/2018 [facility] 97.9 fL 8:12 AM CDT LAB[facility]ATORIES - [facility] RBC Distrib 12.0 11.8 - 03/25/2018 [facility] Width 14.5 % 8:12 AM CDT LAB[facility]ATORIES - [facility] Platelet Count 173 135 - 317 03/25/2018 [facility] x10(9)/L 8:12 AM CDT [facility]ATOR[facility] - [facility] Leukocytes 4.2 3.4 - 9.6 03/25/2018 [facility] x10(9)/L 8:12 AM CDT [facility]ATOR[facility] - [facility] Neutrophils 2.28 1.56 - 03/25/2018 [facility] 6.45 8:12 AM CDT LABORATORIES - x10(9)/L [facility] Lymphocytes 1.32 0.95 - 03/25/2018 [facility] 3.07 8:12 AM CDT LABORATORIES - x10(9)/L [facility] Monocytes 0.51 0.26 - 03/25/2018 [facility] 0.81 8:12 AM CDT LABORATORIES - x10(9)/L [facility] Eosinophils 0.07 0.03 - 03/25/2018 [facility] 0.48 8:12 AM CDT LABORATORIES - x10(9)/L [facility] Basophils <0.03 0.01 - 03/25/2018 [facility] 0.08 8:12 AM CDT LABORATORIES - x10(9)/L [facility] Specimen Anatomical Collection Method Collection Time Receive d Time (Source) Location / / Volume Laterality Blood (Blood, 03/25/2018 7:46 AM 03/25/20 18 7:54 Venous) CDT AM CDT Ting Mead M.D. LAB BLOOD ADD-ON Performing Organization Address City/State/ZIP Code Phon e Number [facility] - [address] [place], [place] [address] [facility] [employer] Cee/Kid 5cc Storage, B (03/25/2018 7:45 AM CDT) Patholo gist Method Time Signature Storage, Red Collected 03/25/2018 [facility] 7:[address] [facility] Storage, ACD Collected 03/25/2018 [facility] 7:[address] [facility] Specimen Anatomical Collection Method Collection Time Receive d Time (Source) Location / / Volume Laterality Blood (Blood, 03/25/2018 7:45 AM 03/25/20 7:54 Venous) CDT AM CDT Narrative [facility] - 03/25/2018 7:57 AM CDT Specimen Information: Specimen ID: [id number] Specimen Type: Blood Specimen Collection Start Date: 03/25/20 ??7:45 AM Specimen Received Date: 03/25/2018 ??7:5 4 AM Specimen ID: [id number] Specimen Collection Start Date: 03/25/20 ??7:45 AM Specimen Received Date: 03/25/2018 ??7:5 7 AM Ting Mead M.D. LAB BLOOD ADD-ON Performing Organization Address City/State/ZIP Code Phon e Number [facility] - [address] [place] [phone] [facility] [employer] [facility] QuantiFERON-Tb Gold Plus, Blood (03/25/2018 7:45 AM CDT) P athologist Signature QuantiFERON-TB Negative Negative 03/26/2018 [facility] Gold Plus 12:16 PM CDT [facility] Comment: No interferon-gamma response to M. tuber [...] Diagnosis of Tuberculosis in Adults and Children [Amandan AMILCAR et. al. Clin. Infect. Dis. 2017;64(2):111-115]. TB1 Ag minus Nil Result 0.00 IU/mL 03/26/2018 1 2:16 PM CDT [facility] TB2 Ag minus Nil Result 0.00 IU/mL 03/26/2018 1 2:16 PM CDT [facility] Mitogen minus Nil 9.67 IU/mL 03/26/2018 12:16 PM CD T [facility] Nil Result 0.11 IU/mL 03/26/2018 12:16 PM CDT [facility] Specimen Anatomical Collection Method Collection Time Receive d Time (Source) Location / / Volume Laterality Blood (Blood, 03/25/2018 7:45 AM 03/25/20 Venous) CDT 10:40 AM CDT Narrative [facility] - 03/26/2018 12:16 PM CDT Specimen Information: Specimen ID: [id number] Specimen Type: Blood Specimen Collection Start Date: 03/25/20 ??7:45 AM Specimen Received Date: 03/25/2018 10:40 AM Specimen ID: [id number] Specimen Type: Blood Specimen Collection Start Date: 03/25/20 ??7:46 AM Specimen Received Date: 03/25/2018 10:40 AM Specimen ID: [id number] Specimen Type: Blood Specimen Collection Start Date: 03/25/20 ??7:46 AM Specimen Received Date: 03/25/2018 10:40 AM Specimen ID: [id number] Specimen Type: Blood Specimen Collection Start Date: 03/25/20 ??7:45 AM Specimen Received Date: 03/25/2018 10:40 AM Ting Mead M.D. LAB MICROBIOLOGY - BLOOD ORD ERABLES Performing Organization Address City/State/ZIP Code Phon e Number [facility] [address] [place], [place] [address] [place] [address] Varicella-Zoster Ab, IgM and IgG (03/25/2018 7:45 AM CDT) P athologist Signature Varicella-Zost Positive 03/25/2018 [facility] er Ab, IgG, S 11:19 AM CDT [facility] Comment: Results suggest response to immunization or prior exposure to the virus. ----REFERENCE VALUE---- Vaccinated: Positive (>=1.1 AI) Unvaccinated: Negative (<=0.8 AI) Varicella IgG 6.5 03/25/2018 11:19 AM [facility] Antibody Index CDT [facility] Varicella-Zoster Ab, Negative Negative 03/26/2018 4:56 PM CDT [facility] SUPERIOR IgM, S [facility] Specimen Anatomical Collection Method Collection Time Receive d Time (Source) Location / / Volume Laterality Blood (Blood, 03/25/2018 7:45 AM 03/25/20 9:56 Venous) CDT AM CDT Ting Mead M.D. LAB MICROBIOLOGY - BLOOD ORD ERABLES Performing Organization Address City/State/ZIP Code Phon e Number [facility] [address] [place] Syphilis IgG Antibody with Reflex (03/25/2018 7:45 AM CDT) athologist Signature Syphilis IgG Negative Negative 03/25/2018 [facility] Ab, S 11:19 AM CDT [facility] Comment: No serologic evidence of exposu re to syphilis. Specimen Anatomical Collection Method Collection Time Receive d Time (Source) Location / / Volume Laterality Blood (Blood, 03/25/2018 7:45 AM 03/25/20 18 9:56 Venous) CDT AM CDT Ting Mead M.D. LAB BLOOD ADD-ON Performing Organization Address City/[facility]/ZIP Code Phon e Number [address] [place] HSV Types 1 and 2 Ab (03/25/2018 7:45 AM CDT) athologist Signature HSV Type 1 Ab, Positive Negative 03/25/2018 [facility] IgG, S 11:43 AM CDT [facility] HSV Type 2 Ab, Negative Negative 03/25/2018 [facility] IgG, S 11:43 AM CDT [facility] HSV Ab Screen, Negative Negative 03/25/2018 [facility] IgM, S by EIA 4:07 PM CDT [facility] Comment: ----ADDITIONAL INFORMATION---- This test has been modified from the man ufacturer's instructions. Its performance characteri stics were determined by [facility] in a manner co nsistent with CLIA requirements. This test has not bee n cleared or approved by the U.S. Food and Drug Admin istration. Specimen Anatomical Collection Method Collection Time Receive d Time (Source) Location / / Volume Laterality Blood (Blood, 03/25/2018 7:45 AM 03/25/20 Venous) CDT 10:33 AM CDT Ting Mead M.D. LAB MICROBIOLOGY - BLOOD ORD ERAKAJAL Performing Organization Address City/State/ZIP Code Phon e Number [facility] [address] [place], [place] [address] HCV Ab Scrn w/Reflex to HCV PCR, Serum (03/25/2018 7:45 AM CDT) athologist [facility] HCV Ab Screen, Negative Negative 03/25/2018 [facility] S 11:12 AM CDT [facility] Comment: [id number] ratio is <1.00 . Specimen Anatomical Collection Method Collection Time Receive d Time (Source) Location / / Volume Laterality Blood (Blood, 03/25/2018 7:45 AM 03/25/20 9:48 Venous) CDT AM CDT Ting Mead M.D. LAB MICROBIOLOGY - BLOOD ORD ERAKAJAL Performing Organization Address City/State/ZIP Code Phon e Number [facility] [address] [place] [address] [facility] Hepatitis B Core Total Ab (03/25/2018 7:45 AM CDT) athologist [facility] HBc Total Ab, Negative Negative 03/25/2018 [facility] S 11:11 AM CDT [facility] Specimen Anatomical Collection Method Collection Time Receive d Time (Source) Location / / Volume Laterality Blood (Blood, 03/25/2018 7:45 AM 03/25/20 9:48 Venous) CDT AM CDT Ting Mead M.D. LAB MICROBIOLOGY - BLOOD ORD ERAKAJAL Performing Organization Address City/State/ZIP Code Phon e Number [facility] [address] [place], [place] [address] [facility] HBs Antibody, Serum (03/25/2018 7:45 AM CDT) athologist [facility] HBs Antibody, Positive 03/25/2018 [facility] S 11:11 AM CDT [facility] Comment: Patient is considered to be immune to in fection with HBV. ----REFERENCE VALUE---- Unvaccinated: Negative Vaccinated: Positive HBs Antibody, 81.8 mIU/mL 03/25/2018 11:11 AM CDT [facility] Comment: ----REFERENCE VALUE---- Unvaccinated: <5.0 Vaccinated: >=12.0 Specimen Anatomical Collection Method Collection Time Receive d Time (Source) Location / / Volume Laterality Blood (Blood, 03/25/2018 7:45 AM 03/25/20 9:48 Venous) CDT AM CDT Ting Mead M.D. LAB MICROBIOLOGY - BLOOD ORD ERABLES Performing Organization Address City/[facility]/ZIP Code Phon e Number [address] [place] Hepatitis B Surface Antigen (03/25/2018 7:45 AM CDT) athologist Signature HBs Antigen, S Negative Negative 03/25/2018 [facility] 10:54 AM CDT [facility] Specimen Anatomical Collection Method Collection Time Receive d Time (Source) Location / / Volume Laterality Blood (Blood, 03/25/2018 7:45 AM 03/25/20 18 9:48 Venous) CDT AM CDT Ting Mead M.D. LAB MICROBIOLOGY - BLOOD ORD ERAKAJAL Performing Organization Address [facility] Phon e Number [address] [place] Hepatitis A IgG Ab, Serum (03/25/2018 7:45 AM CDT) athologist Signature Hepatitis A Positive 03/25/2018 [facility] IgG Ab, S 10:32 AM T [facility] Comment: Result indicates immunity to hepatitis A infection from either vaccination or past exposure to h epatitis A. False-positive results may be observed i n patients with CMV antibodies or heterophilic antibodies. ? ? ----REFERENCE VALUE---- Unvaccinated: Negative Vaccinated: Positive Specimen Anatomical Collection Method Collection Time Receive d Time (Source) Location / / Volume Laterality Blood (Blood, 03/25/2018 7:45 AM 03/25/20 18 9:52 Venous) CDT AM CDT Ting Mead M.D. LAB MICROBIOLOGY - BLOOD ORD ERAKAJAL Performing Organization Address City/[facility]/ZIP Code Phon e Number [address] [place] [address] [facility] (ABNORMAL) PTH (Parathyroid Hormone) (03/25/2018 7:45 AM CDT) [facility] Method Time Signature Parathyroid 102 (H) 15 - 65 03/25/2018 [facility] Hormone (PTH), pg/mL 9:11 AM CDT LABORATORIES - S [facility] Specimen Anatomical Collection Method Collection Time Receive d Time (Source) Location / / Volume Laterality Blood (Blood, 03/25/2018 7:45 AM 03/25/20 18 7:54 Venous) CDT AM CDT Ting Mead M.D. LAB BLOOD ADD-ON Performing Organization Address City/[facility]/ZIP Code Phon e Number [facility] LABORATORIES - [address] [place] [address] [facility] (ABNORMAL) S-TSH (Thyroid-Stimulating Hormone - Sensitive) (03/25/2018 7:45 AM CDT) [facility] Signature TSH, Sensitive 6.0 (H) 0.3 - 4.2 03/25/2018 [facility] mIU/L 9:10 AM CDT LABORATORIES - [facility] Specimen Anatomical Collection Method Collection Time Receive d Time (Source) Location / / Volume Laterality Blood (Blood, 03/25/2018 7:45 AM 03/25/20 18 7:54 Venous) CDT AM CDT Ting Mead M.D. LAB BLOOD ADD-ON Performing Organization Address City/[facility] Code Phon e Number [facility] LABORATORIES - [address] [place] [address] [facility] HLA Class II SAB Antibody Screen (03/25/2018 7:45 AM CDT) [facility] Signature Class II SAB Positive Not Applicable 03/27/2018 [facility] Overall 7:42 AM CDT LABORATORIES - Result [facility] Class II SAB 2 03/27/2018 [facility] cPRA 7:42 AM CDT LABORATORIES - [facility] Comment: ----ADDITIONAL INFORMATION---- This PRA is a [facility] calculated PRA. PRA is based on the antigen frequency of the Tissue Typing patient a nd donor population. ??PRA reflects all antibodie s with a normalized value (MFI) above 300. SAB DRB1 Specificity see below 03/27/2018 7:42 AM CDT [facility] Comment: 103[318] Format: Serologic equivalent/abbreviated specificity [Normalized Value] shown in decreasing o rder. Note: A serologic equivalent/abbreviated specifi city displayed multiple times could indicate different alleles. SAB [id number] Specificity NONE 03/27/2018 7:42 A M CDT [facility] SAB DQB1 Specificity NONE 03/27/2018 7:42 AM CDT [facility] SAB DPB1 Specificity see below 03/27/2018 7:42 AM CDT [facility] Comment: 23[525], 11[374], 14[333] Format: Serologic equivalent/abbreviated specificity [Normalized Value] shown in decreasing o rder. Note: A serologic equivalent/abbreviated specifi city displayed multiple times could indicate different alleles. ----ADDITIONAL INFORMATION---- Method: [facility] Performing Laboratory CLIA# [id number] Specimen Anatomical Collection Method Collection Time Receive d Time (Source) Location / / Volume Laterality Blood (Blood, 03/25/2018 7:45 AM 03/25/20 18 9:46 Venous) CDT AM CDT Ting Mead M.D. LAB HLA ORDERABLES Performing Organization Address City/State/ZIP Code Phon e Number [facility] - [address] [place], [place] [address] [facility] HLA Class I SAB Antibody Screen (03/25/2018 7:45 AM CDT) [facility] Method Time Signature Class I SAB Positive Not Applicable 03/27/2018 [facility] Overall 7:16 AM CDT LABORATORIES - Result [facility] Class I SAB 7 03/27/2018 [facility] cPRA 7:[address] [facility] Comment: ----ADDITIONAL INFORMATION---- This PRA is a [facility] ue Typing Laboratory calculated PRA. PRA is based on the antigen frequency of the Tissue Typing patient a nd donor population. ??PRA reflects all antibodie s with a normalized value (MFI) above 300. SAB A Specificity see below 03/27/2018 7:16 AM CDT [facility] Comment: 29[303] Format: Serologic equivalent/abbreviated specificity [Normalized Value] shown in decreasing o rder. Note: A serologic equivalent/abbreviated specifi city displayed multiple times could indicate different alleles. SAB B Specificity see below 03/27/2018 7:[address] [facility] Comment: 54[926] Format: Serologic equivalent/abbreviated specificity [Normalized Value] shown in decreasing o rder. Note: A serologic equivalent/abbreviated specifi city displayed multiple times could indicate different alleles. SAB C Specificity NONE 03/27/2018 7:[address] [facility] Comment: ----ADDITIONAL INFORMATION---- Method: Luminex Performing Laboratory CLIA# [id number] Specimen Anatomical Collection Method Collection Time Receive d Time (Source) Location / / Volume Laterality Blood (Blood, 03/25/2018 7:45 AM 03/25/20 18 9:46 Venous) CDT AM CDT Ting Mead M.D. LAB HLA ORDERABLES Performing Organization Address [facility] Phon e Number [facility] - [address] [place] [phone] [facility] Isoagglutinin Titer, Anti-B (03/25/2018 7:45 AM CDT) [facility] Method Time Signature Isoagglutinin 8 03/25/2018 [facility] Titer, Anti-B 3:[address] [facility] Specimen Anatomical Collection Method Collection Time Receive d Time (Source) Location / / Volume Laterality Blood (Blood, 03/25/2018 7:45 AM 03/25/20 18 8:14 Venous) CDT AM CDT Ting Mead M.D. LAB BLOOD BANK TEST ORDERABL ES Performing Organization Address City/[facility] Phon e Number [facility] - [address] [place] [phone] [facility] Isoagglutinin Titer, Anti-A (03/25/2018 7:45 AM CDT) [facility] Method Time Signature Isoagglutinin 16 03/25/2018 [facility] Titer, Anti-A 3:[address] [facility] Specimen Anatomical Collection Method Collection Time Receive d Time (Source) Location / / Volume Laterality Blood (Blood, 03/25/2018 7:45 AM 03/25/20 18 8:14 Venous) CDT AM CDT Ting Mead M.D. LAB BLOOD BANK TEST ORDERABL ES Performing Organization Address City/State/ZIP Code Phon e Number [facility]OR[facility]IES - [address] [place] [phone] [facility] Phosphorus Inorganic (03/25/2018 7:45 AM CDT) Analysis Performed At Patho logist Time Signature Phosphorus 3.4 2.5 - 4.5 03/25/2018 [facility] (Inorganic), S mg/dL 9:[address] [facility] Specimen Anatomical Collection Method Collection Time Receive d Time (Source) Location / / Volume Laterality Blood (Blood, 03/25/2018 7:45 AM 03/25/20 18 7:54 Venous) CDT AM CDT Ting Mead M.D. LAB BLOOD ADD-ON Performing Organization Address City/[facility]/ZIP Code Phon e Number [facility]IES - [address] [place] [phone] [facility] (ABNORMAL) Lipid Panel (03/25/2018 7:45 AM CDT) P athologist Signature Cholesterol, 162 mg/dL 03/25/2018 [facility] Total 9:[address] [facility] Comment: ----REFERENCE VALUE---- Desirable: < 200 Borderline high: 200 - 239 High: > or = 240 Triglycerides 150 (H) mg/dL 03/25/2018 9:10 AM CDT [facility] Comment: ----REFERENCE VALUE---- Normal: <150 Borderline high: 150-199 High: 200-499 Very high: > or =500 Cholesterol, HDL, S 50 >=40 mg/dL 03/25/2018 9:10 AM CDT [facility] Calculated LDL 82 mg/dL 03/25/2018 9:10 AM CDT [facility] Comment: ----REFERENCE VALUE---- Desirable: <100 Above Desirable: 100-129 Borderline high: 130-159 High: 160-189 Very high: > or =190 Cholesterol, Non-HDL, 112 mg/dL 03/25/2018 9:1 0 AM CDT [facility] [place] [facility] Comment: ----REFERENCE VALUE---- Desirable: <130 Above Desirable: 130-159 Borderline high: 160-189 High: 190-219 Very high: > or =220 Specimen Anatomical Collection Method Collection Time Receive d Time (Source) Location / / Volume Laterality Blood (Blood, 03/25/2018 7:45 AM 03/25/20 7:54 Venous) CDT AM CDT Ting Mead M.D. LAB BLOOD ADD-ON Performing Organization Address City/State/ZIP Code Phon e Number [facility] - [address] [place], [place] [address] [facility] (ABNORMAL) CMP (Comprehensive Metabolic Panel) (03/25/2018 7:45 AM CDT) [facility] gist Method Time Signature Potassium, S 4.0 3.6 - 5.2 03/25/2018 [facility] mmol/L 9:10 AM CDT LABORATORIES - [facility] Sodium, S 139 135 - 145 03/25/2018 [facility] mmol/L 9:10 AM CDT LABORATORIES - [facility] Chloride, S 99 98 - 107 03/25/2018 [facility] mmol/L 9:10 AM CDT LABORATORIES - [facility] Bicarbonate, S 28 22 - 29 03/25/2018 [facility] mmol/L 9:10 AM CDT LABORATORIES - [facility] Anion Gap 12 7 - 15 03/25/2018 [facility] 9:10 AM CDT LABORATORIES - [facility] BUN (Blood 57 (H) 8 - 24 03/25/2018 [facility] Urea mg/dL 9:10 AM CDT LABORATORIES - Nitrogen), S [facility] Creatinine 2.89 (H) 0.74 - 03/25/2018 [facility] 1.35 9:10 AM CDT LABORATORIES - mg/dL [facility] eGFR-Non 22 (L) >=60 03/25/2018 [facility] Black/ mL/min/BS 9:10 AM CDT LABORATORIES - [place] [facility] Comment: ----ADDITIONAL INFORMATION---- Estimated GFR calculated using the 2009 CKD_EPI creatinine equation. eGFR-Black/ 26 (L) >=60 mL/min/BSA 03/25/2018 9:10 [facility] [place] AM CDT LABORATORIES - [facility] Comment: ----ADDITIONAL INFORMATION---- Estimated GFR calculated using the 2009 CKD_EPI creatinine equation. Calcium, Total, S 9.0 8.8 - 10.2 03/25/2018 9:10 AM [facility] mg/dL CDT LABORATORIES [facility] Glucose, S 125 70 - 140 mg/dL 03/25/2018 9:10 AM [facility] Protein, Total, S 6.3 6.3 - 7.9 g/dL 03/25/2018 9:10 A M [facility] Albumin, S 4.2 3.5 - 5.0 g/dL 03/25/2018 9:10 AM [facility] LAB[facility]ATORIES [facility] Aspartate 18 8 - 48 U/L 03/25/2018 9:10 AM [facility] Aminotransferase (AST), S T LABO RATORIES - [facility] Alkaline Phosphatase, S 74 45 - 115 U/L 03/25/2018 9: 10 AM [facility] Alanine Aminotransferase 20 7 - 55 U/L 03/25/2018 9:1 0 AM [facility] (ALT), S [facility] Bilirubin, Total, S 0.3 <=1.2 mg/dL 03/25/2018 9:10 AM [facility] Specimen Anatomical Collection Method Collection Time Receive d Time (Source) Location / / Volume Laterality Blood (Blood, 03/25/2018 7:45 AM 03/25/20 18 7:54 Venous) CDT AM CDT Ting Mead M.D. LAB BLOOD ADD-ON Performing Organization Address City/State/ZIP Code Phon e Number [facility]IES - [address] documented in this encounter Visit Diagnoses Diagnosis Pretransplant Recipient Evaluation Exam - Primary Hypertension And Chronic Kidney Disease Stage 1 To 4 Encounter For Follow Up Examination Afte r Completed Treatment For Conditions Other Than Malignant Neoplasm Encounter For Preprocedural Cardiovascul ar Examination Chronic Kidney Disease Stage 4 Glomerula r Filtration Rate 15-29 (HCC) Pretransplant Recipient Evaluation Exam Chronic Kidney Disease Stage 4 Glomerula r Filtration Rate 15-29 (HCC) Encounter For Follow Up Examination Afte r [...] documented as of this encounter Care Teams Tram Inspector Relationship Specialty Start Date End Date Elsewhere, Pcp PCP - General Family Medicine 07/29/17 documented as of this encounter
--- OUTSIDE RECORDS SUMMARY | 2022-04-13 12:36 | XMS_ITS | Encounter Summary ---
:1955 Author Organization [facility] Address [address] [place] [address] Care Team Providers Name Role Phone Elsewhere, Pcp Primary Care Provider Unavailable Reason for Referral Outpatient (Routine) - Closed Specialty Diagnoses / Procedures Referred By Contact Refer red To Contact Transplant Rst Txp [address] [phone] Referral ID Status Reason Start Date Expiration Date Visits Requ ested Visits Authorized [id number] Closed 02/16/2018 02/16/2019 1 1 ransplant (Routine) - Authorized Specialty Diagnoses / Procedures Referred By Contact Refer red To Contact [facility] Diagnoses [facility] [address] [place] [phone] Referral ID Status Reason Start Date Expiration Date Visits V isits Requested Authorized [id number] Authorized 02/16/2018 99 99 Reason for Visit Reason Onset Date Comments Pre-visit Testing Orders 02/16/2018 Encounter Details Date Type Department Care Team Description 02/16/2018 Clinical Curt Garces Prescheduling, Pre- visit Testing Communication Center for Provider Orders Transplantation and Clinical Regeneration in [place], [place] [address] [place] [phone] Social History Tobacco Use Types Packs/Day Years [...] or slept in a m[facility]p (including now)? Sex Assigned at Date Recorded Male 05/16/2020 4:27 PM [employer] documented as of this encounter Plan of Treatment Upcoming Encounters Date Type Specialty Care Team Description 04/24/2022 Appointment Laboratory Medicine Angélica Granger P.ADurgaCDemetrius [address] [place] [phone] 04/25/2022 Office Visit Otorhinolaryngology Dex Matta APRN, C.N.P., M.S.N. [address] [place] [phone] 05/08/2022 Appointment Laboratory Medicine Angélica Granger P.A.-C. [address] [place] [phone] 05/08/2022 Clinical Admitting/Central Communication Scheduling 05/10/2022 Appointment Radiology Jeremie Rose M.D. [address] [place] [phone] 05/10/2022 Comprehensive Visit Orthopedic Surgery Warner Graves M.D. [address] [place] [phone] 05/22/2022 Appointment Laboratory Medicine Angélica Granger P.A.-C. [address] [place] [phone] 06/05/2022 Appointment Laboratory Medicine Angélica Granger P.A.-C. [address] [place] [phone] 06/19/2022 Appointment Laboratory Medicine Angélica Granger P.A.-C. [address] [place] [phone] 07/03/2022 Appointment Laboratory Medicine Angélica Granger P.A.-C. [address] [place] [phone] 07/17/2022 Appointment Laboratory Medicine Angélica Granger P.A.-C. [address] [place] [phone] 07/31/2022 Appointment Laboratory Medicine Angélica Granger P.A.-C. [address] [place] [phone] 08/14/2022 Appointment Laboratory Medicine Angélica Granger P.A.-C. [address] [place] [phone] 08/28/2022 Appointment Laboratory Medicine Angélica Granger P.A.-C. [address] [place] [phone] Scheduled Referrals Name Type Priority Associated Order Schedule Diagnoses Transplant referral Outpatient Referral Routine Failure Renal Ordered: authorization and 02/16/2018 benefits check Recipient Outpatient Referral Routine Expected : Pre-Transplant Kidney 2017 / pancreas office (Approxim[facility]), visit (clinic) Expires: 02/16/2021 documented as of this encounter Visit Diagnoses Diagnosis Failure Renal - Primary documented in this encounter Additional Health Concerns Assessment Noted Time PHQ-9 Depression Total Score: 1 08/26/2017 10:50 AM CS T documented as of this encounter Care Teams Visual Educator Relationship Specialty Start Date End Date Elsewhere, Pcp PCP - General Family Medicine 07/29/17 documented as of this encounter
--- OUTSIDE RECORDS SUMMARY | 2022-04-13 12:36 | XMS_ITS | Encounter Summary ---
:1955 Author Organization [facility] Address [address] [place] [address] Care Team Providers Name Role Phone Elsewhere, Pcp Primary Care Provider Unavailable Reason for Visit Reason Comments Med Refill Encounter Details Date Type Department Care Team Description 03/10/2018 Refill Division of Gastroenterology in Willis Mcdermott M.D. 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 [address] [place] [phone] 04/25/2022 Office Visit Otorhinolaryngology Dex Matta, SAMPLE CHECKER, C.N.P., M.S.N. [address] [place] [phone] 05/08/2022 Appointment Laboratory Medicine Angélica Granger P.A.-CDemetrius [address] [place] [address] [phone] 05/08/2022 Clinical Admitting/Central Communication Scheduling 05/10/2022 Appointment Radiology Jeremie Rose M.D. [address] [place] [phone] 05/10/2022 Comprehensive Visit Orthopedic Surgery Warner Graves M.D. [address] [place] [address] [phone] 05/22/2022 Appointment Laboratory Medicine Angélica Granger P.A.-CDemetrius [address] [place] [address] [phone] 06/05/2022 Appointment Laboratory Medicine Angélica Granger P.A.-C. [address] [place] [phone] 06/19/2022 Appointment Laboratory Medicine Angélica Granger P.A.-C. [address] [place] [phone] 07/03/2022 Appointment Laboratory Medicine Angélica Granger P.A.-C. [address] [place] [phone] 07/17/2022 Appointment Laboratory Medicine Angélica Granger P.A.-C. [address] [place] [phone] 07/31/2022 Appointment Laboratory Medicine Angélica Granger P.A.-C. [address] [place] [phone] 08/14/2022 Appointment Laboratory Medicine Angélica Granger P.A.-C. [address] [place] [phone] 08/28/2022 Appointment Laboratory Angélica Royal P.A.-C. [address] [place] [phone] documented as of this encounter Visit Diagnoses Diagnosis Transplant Liver (HCC) - Primary documented in this encounter Additional Health Concerns Assessment Noted Time PHQ-9 Depression Total Score: 1 08/26/2017 10:50 AM CS T documented as of this encounter Care Teams Medical Pathologist Relationship Specialty Start Date End Date Elsewhere, Pcp PCP - General Family Medicine 07/29/17 documented as of this encounter
--- OUTSIDE RECORDS SUMMARY | 2022-04-13 12:36 | XMS_ITS | Encounter Summary ---
:1955 Author Organization [facility] Address [address] [place] [address] Care Team Providers Name Role Phone Elsewhere, Pcp Primary Care Provider Unavailable Reason for Referral Transplant (Routine) - Closed Specialty Diagnoses / Procedures Referred By Contact Refer red To Contact Transplant Surgery / Diagnoses Chronic Kidney Disease Stage 4 Glomerular Filtration Rate 15-29 ([facility]) Ting [place], [facility] Transplant M.DDemetrius [address] [place] [address] Referral ID Status Reason Start Date Expiration Date Visits Requ ested Visits Authorized [id number] Closed 02/23/2018 02/23/2019 1 1 Reason for Visit Reason Onset Date Comments mood? Olena 02/17/2018 Encounter Details Date Type Department Care Team Description 02/17/2018 Clinical Communication Curt Vázquez , mood? [facility] Diana G Transplantation and [phone] Clinical Regeneration in ([facility]) [place], [place] [address] [place] [address] Social History Tobacco Use Types Packs/Day [...] 12/15/2021 organizations such as sikhism groups, unions, fraWiredBenefits or athletic groups, or school groups? 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 - 02/23/2018 3:51 PM CDT Addended by: TING MEAD on: 02/23/2018 03:51 PM Modules accepted: Orders Addendum Note - Patricia Pinto R.N., C.C.T.C. - 02/17/2018 10:18 AM CDT Addended by: PATRICIA PINTO on: 02/17/2018 10:18 AM Modules accepted: Orders, SmartSet Telephone Encounter - Patricia Pinto R.N., C.C.T.C. - 02/17/2018 10:18 AM CDT Order issued today for psych. Thanks for letting me know. Olena Telephone Encounter - ImmanuelDiana brand - 02/17/2018 8:37 AM CDT Olena, In the note for eval it says pt needs mood but nothing is ordered so just wanting to check before sending out final pag. Thanks! Diana documented in this encounter Plan of Treatment Upcoming Encounters Date Type Specialty Care Team Description 04/24/2022 Appointment Laboratory Medicine Angélica Granger P.A.-C. [address] [place] [phone] 04/25/2022 Office Visit Otorhinolaryngology Dex Matta APRN, C.N.P., M.S.N. [address] [place] [phone] 05/08/2022 Appointment Laboratory Medicine Angélica Granger P.A.-C. [address] [place] [phone] 05/08/2022 Clinical Admitting/Central Communication Scheduling 05/10/2022 Appointment Radiology Jeremie Rose M.D. [address] [place] [phone] 05/10/2022 Comprehensive Visit Orthopedic Surgery Warner Graves M.D. [address] [place] [phone] 05/22/2022 Appointment Laboratory Medicine Angélica Granger P.A.-C. [address] [place] [address] [phone] 06/05/2022 Appointment Laboratory Medicine Angélica Granger P.A.-C. [address] [place] [address] [phone] 06/19/2022 Appointment Laboratory Medicine Angélica Granger P.A.-C. [address] [place] [address] [phone] 07/03/2022 Appointment Laboratory Medicine Angélica Granger P.A.-C. [address] [place] [phone] 07/17/2022 Appointment Laboratory Medicine Angélica Granger P.A.-C. [address] [place] [address] [phone] 07/31/2022 Appointment Laboratory Medicine Angélica Granger P.A.-C. [address] [place] [phone] 08/14/2022 Appointment Laboratory Angélica Royal P.A.-C. [address] [place] [phone] 08/28/2022 Appointment Laboratory Angélica Royal P.A.-C. [address] [place] [phone] Scheduled Referrals Name Type Priority Associated Order Schedule Diagnoses Transplant - Outpatient Referral Routine Chronic Kidney Expect ed: Psychology consult Disease Stage 4 2017 (clinic) Glomerular (Approximate), Filtration Rate Expires: 15-29 ([facility]) 02/17/2019 documented as of this encounter Visit Diagnoses Diagnosis Chronic Kidney Disease Stage 4 Glomerula r Filtration Rate 15-29 (HCC) - Primary documented in this encounter Additional Health Concerns Assessment Noted Time PHQ-9 Depression Total Score: 1 08/26/2017 10:50 AM CS T documented as of this encounter Care Teams Quality Control Expert Relationship Specialty Start Date End Date Elsewhere, Pcp PCP - General Family Medicine 07/29/17 documented as of this encounter
--- OUTSIDE RECORDS SUMMARY | 2022-04-13 12:37 | XMS_ITS | Encounter Summary ---
:1955 Author Organization [facility] Address [address] [place] [address] Care Team Providers Name Role Phone Elsewhere, Pcp Primary Care Provider Unavailable Encounter Details Date Type Department Care Team Description 02/10/2018 Hospital Encounter Department of Cheryl Torres osclerosis Renal Artery (HCC); Radiology, Kd Stern M.D. 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 [address] [place] [phone] 04/25/2022 Office Visit Otorhinolaryngology Dex Matta APRN C.NDemetriusP., M.S.N. [address] [place] [phone] 05/08/2022 Appointment Laboratory Medicine Angélica Granger P.A.-C. [address] [place] [phone] 05/08/2022 Clinical Admitting/Central Communication Scheduling 05/10/2022 Appointment Radiology Jeremie Rose M.D. [address] [place] [phone] 05/10/2022 Comprehensive Visit Orthopedic Surgery Warner Graves M.D. [address] [place] [address] [phone] 05/22/2022 Appointment Laboratory Medicine Angélica Granger P.A.-C. [address] [place] [phone] 06/05/2022 Appointment Laboratory Medicine Angélica Granger P.A.-C. [address] [place] [phone] 06/19/2022 Appointment Laboratory Medicine Angélica Granger P.A.-C. [address] [place] [phone] 07/03/2022 Appointment Laboratory Medicine Angélica Granger P.A.-C. [address] [place] [phone] 07/17/2022 Appointment Laboratory Medicine Angélica Granger P.A.-C. [address] [place] [phone] 07/31/2022 Appointment Laboratory Medicine Angélica Granger P.A.-C. [address] [place] [phone] 08/14/2022 Appointment Laboratory Medicine Angélica Granger P.A.-C. [address] [place] [phone] 08/28/2022 Appointment Laboratory Medicine Angélica Granger P.A.-C. [address] [place] [phone] documented as of this encounter Procedures Procedure Name Priority Date/Time Associated Diagnosis Comme nts US KIDNEYS WITH Routine 02/10/2018 9:26 AM Atherosclerosis Santana al Results for this RENAL ARTERY CDT Artery (HCC) procedure are in DOPPLER Chronic Kidney Disease the r esults section. documented in this encounter Results US Kidneys with Renal Artery Doppler (02/10/2018 9:26 AM CDT) Anatomical Region Laterality Modality Abdomen, Renal, Ultrasound RST LOS N/A Ultra sound Specimen (Source) Anatomical Collection Method Collection Time Re ceived Time Location / / Volume Laterality 02/10/2018 9:27 AM CDT Impressions 02/10/2018 9:37 AM CDT IMPRESSION: 1. Right renal artery stenosis, likely n ot significant changed. 2. Widely patent left renal artery stent . 3. 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 Narrative 02/10/2018 9:37 AM CDT EXAM: US KIDNEYS WITH RENAL ARTERY DOPPLER Exam performed with color and spectral D oppler analysis. COMPARISON: Renal artery ultrasound date d August 21, 2017 FINDINGS: Right kidney: Mildly echogenic, slightly thinned renal parenchyma. Simple cyst. No hydronephrosis. Right renal artery: Single vessel is wel l visualized. Again demonstrated are elevated Doppler velocities at the renal artery origin (291 cm/s today, previously 246 cm/s). Although the overa ll Doppler velocity is elevated today, the ratio of peak renal artery to aortic velocity is similar to the prior examination, suggesting an unchanged are a of stenosis. Left kidney: Mildly echogenic, slightly thinned renal parenchyma. Simple cysts. No hydronephrosis. Left renal artery: Single vessel is well visualized. Doppler evaluation demonstrates no focally elevated flow ve locities in the proximal/mid artery, including the stented portion. Abnormal Doppler waveform is seen within the lower pole, consistent with a direct art erial-venous connection. Findings suggest a small arteriovenous fistula, p ossibly related to patient's intervening renal biopsy (September 03, 2017). Right Renal Measurements: Right renal length: 9.1 cm Right segmental artery - upper pole RI: 0.73 Right segmental artery - lower pole RI: 0.75 Right renal artery origin PSV: 291 cm/s Right renal artery prox PSV: 88 cm/s Right renal artery mid PSV: 57 cm/s Right renal artery distal PSV: 56 cm/s Left Renal Measurements: Left renal length: 9.7 cm Left segmental artery - upper pole RI: 0 .68 Left segmental artery - lower pole RI: 0 .40 Left renal artery origin PSV: 146 cm/s Left renal artery prox PSV: 128 cm/s Left renal artery mid PSV: 104 cm/s Left renal artery distal PSV: 62 cm/s Aorta: Normal caliber. Aorta PSV: 75 cm/s Bladder: Normal. Procedure Note Carlos Rader M.D. - 02/10/2018For matting of this note might be different from the original. EXAM: US KIDNEYS WITH RENAL ARTERY DOPPL ER Exam performed with color and spectral D oppler analysis. COMPARISON: Renal artery ultrasound date d August 21, 2017 FINDINGS: Right kidney: Mildly echogenic, slightly thinned renal parenchyma. Simple cyst. No hydronephrosis. Right renal artery: Single vessel is wel l visualized. Again demonstrated are elevated Doppler velocities at the renal artery origin (291 cm/s today, previously 246 cm/s). Although the overa ll Doppler velocity is elevated today, the ratio of peak renal artery to aortic velocity is similar to the prior examination, suggesting an unchanged are a of stenosis. Left kidney: Mildly echogenic, slightly thinned renal parenchyma. Simple cysts. No hydronephrosis. Left renal artery: Single vessel is well visualized. Doppler evaluation demonstrates no focally elevated flow ve locities in the proximal/mid artery, including the stented portion. Abnormal Doppler waveform is seen within the lower pole, consistent with a direct art erial-venous connection. Findings suggest a small arteriovenous fistula, p ossibly related to patient's intervening renal biopsy (September 03, 2017). Right Renal Measurements: Right renal length: 9.1 cm Right segmental artery - upper pole RI: 0.73 Right segmental artery - lower pole RI: 0.75 Right renal artery origin PSV: 291 cm/s Right renal artery prox PSV: 88 cm/s Right renal artery mid PSV: 57 cm/s Right renal artery distal PSV: 56 cm/s Left Renal Measurements: Left renal length: 9.7 cm Left segmental artery - upper pole RI: 0 .68 Left segmental artery - lower pole RI: 0 .40 Left renal artery origin PSV: 146 cm/s Left renal artery prox PSV: 128 cm/s Left renal artery mid PSV: 104 cm/s Left renal artery distal PSV: 62 cm/s Aorta: Normal caliber. Aorta PSV: 75 cm/s Bladder: Normal. IMPRESSION: 1. Right renal artery stenosis, likely n ot significant changed. 2. Widely patent left renal artery stent . 3. 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 Cheryl HEREDIA US PROCEDURES documented in this encounter Visit Diagnoses Diagnosis Atherosclerosis Renal Artery (HCC) Chronic Kidney Disease documented in this encounter Additional Health Concerns Assessment Noted Time PHQ-9 Depression Total Score: 1 08/26/2017 10:50 AM EUGENIO T documented as of this encounter Care Teams Saddle Mechanic Relationship Specialty Start Date End Date Elsewhere, Pcp PCP - General Family Medicine 07/29/17 documented as of this encounter
--- OUTSIDE RECORDS SUMMARY | 2022-04-13 12:37 | XMS_ITS | Encounter Summary ---
:1955 Author Organization [facility] Address [address] [place] [id number] Care Team Providers Name Role Phone Elsewhere, Pcp Primary Care Provider Unavailable Reason for Visit MRI/CAT/PET Scan (Routine) - Closed Specialty Diagnoses / Procedures Referred By Contact Refer red To Contact Radiology Diagnoses Unspecified Dementia Unspecified Severity Without Behavioral Disturbance Psychotic disturbance Mood Disturbance And Anxiety (HCC) Otoniel Linares M.D. [facility] Procedures MR Brain without IV Contrast MR Brain Dementia without Quantitative Measurements HI MRI BRAIN WO CNTRST HC MRI BRAIN WO CNTRST HI MRI BRAIN WO CNTRST HC MRI BRAIN WO CNTRST [address] [place] [phone] Referral ID Status Reason Start Date Expiration Date Visits Requ ested Visits Authorized [id number] Closed 02/06/2018 02/06/2019 1 1 Encounter Details Date Type Department Care Team Description 02/10/2018 Hospital Encounter Department of Otoniel Linares [facility] Radiology, Russel Tubbs M.D. 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 [address] [place] [phone] 04/25/2022 Office Visit Otorhinolaryngology Dex Matta APRN, C.N.P., M.S.N. [address] [place] [phone] 05/08/2022 Appointment Laboratory Medicine Angélica Granger P.A.-CDemetrius [address] [place] [phone] 05/08/2022 Clinical Admitting/Central Communication Scheduling 05/10/2022 Appointment Radiology Jeremie Rose M.D. [address] [place] [phone] 05/10/2022 Comprehensive Visit Orthopedic Surgery Warner Graves M.D. [address] [place] [phone] 05/22/2022 Appointment Laboratory Medicine Angélica Granger P.A.-C. [address] [place] [phone] 06/05/2022 Appointment Laboratory Medicine Angélica Granger P.A.-C. [address] [place] [phone] 06/19/2022 Appointment Laboratory Medicine Angélica Granger P.A.-C. [address] [place] [phone] 07/03/2022 Appointment Laboratory Medicine Angélica Granger P.A.-C. [address] [place] [phone] 07/17/2022 Appointment Laboratory Medicine Angélica Granger P.A.-C. [address] [place] [phone] 07/31/2022 Appointment Laboratory Medicine Angélica Granger P.A.-C. [address] [place] [phone] 08/14/2022 Appointment Laboratory Medicine Angélica Granger P.A.-C. [address] [place] [phone] 08/28/2022 Appointment Laboratory Medicine Angélica Granger P.A.-C. [address] [place] [phone] documented as of this encounter Procedures Procedure Name Priority Date/Time Associated Diagnosis Comme nts MR BRAIN WITHOUT RAD - Routine 02/10/2018 5:41 Major Neurocognitive Results for IV CONTRAST (most inpatients PM CDT Disorder Without this pr ocedure and all Behavior Disturbance are in the outpatients) results section. documented in this encounter Results MR Brain without IV Contrast (02/10/2018 5:41 PM CDT) Anatomical Region Laterality Modality Head, Brain, Neuroradiology RST LOS N/A [facility] Resonance Specimen (Source) Anatomical Collection Method Collection Time Re ceived Time Location / / Volume Laterality 02/11/2018 10:08 AM CDT Impressions 02/11/2018 10:56 AM CDT IMPRESSION: 1. ??Mild parenchymal volume loss, thoug h hippocampal, mesial temporal and inferior ventricular volumes remain with in normal limits for age on quantitative analysis. 2. ??Mild leukoaraiosis. 3. ??Signal abnormality in the basal shakira glia on susceptibility weighted sequence suggestive of iron accumulation. Signal abnormality in bilateral substantia nigra as described. Both of these findin gs are associated with parkinsonism. 4. ??Focal encephalomalacia in the later al right temporal lobe and inferior left frontal lobe presumably representing seq uela of posttraumatic contusions. Narrative 02/11/2018 10:56 AM CDT EXAM: MR BRAIN WITHOUT IV CONTRAST COMPARISON: None. FINDINGS: There are a few scattered foci of T2/FLA IR hyperintensity in the bihemispheric white matter, likely representing areas of chronic small vessel ischemic change. A region of confluent T2 hyperintensity within the lateral right middle temporal gyrus presumably represents focal enceph alomalacia as there is associated volume loss and cortical thinning. A smaller fo cus of cystic encephalomalacia is present in the left orbital gyrus (image 17 of series 11). Given the locations, these areas are compatible with posttrau matic cerebral contusions (possibly representing coup and contrecoup injurie s). There is mild global parenchymal volume loss, though with maintained ventricular caliber. On the susceptibility weighted sequence, there is substantial hypointensity within the bilateral caudate and lentifo rm nuclei. There is also loss of normal hyperintense signal on this sequence wit hin nigrosome-1 (loss of the normal swallow tail sign), in the posterior t hird of the substantia nigra bilaterally. Image post-processing for quantitative s egmental volume reporting and assessment was performed on an independent computer breakfast server using [employer] software. The clinical indication for performing the p ost-processing was cognitive decline. Review of the quality review trainer images dem onstrates appropriate segmentation of the hippocampi. ?? Left hippocampal volume: ??3.46cm3 Right hippocampal volume: ??3.65cm3 Hippocampal asymmetry index: ??-5.29% ?? Combined hippocampal volume: ??7.11cm3 ? ? Combined hippocampal volume age-adjusted percentile: ??64 Combined inferior lateral ventricles (te mporal horns) volume: ??2.02cm3 Combined inferior lateral ventricles (te mporal horns) age-adjusted percentile: 75 Procedure Note Tomeka Hampton M.D. - 02/11/2018Format ting of this note might be different from the original. EXAM: MR BRAIN WITHOUT IV CONTRAST COMPARISON: None. FINDINGS: There are a few scattered foci of T2/FLA IR hyperintensity in the bihemispheric white matter, likely representing areas of chronic small vessel ischemic change. A region of confluent T2 hyperintensity within the lateral right middle temporal gyrus presumably represents focal enceph alomalacia as there is associated volume loss and cortical thinning. A smaller fo cus of cystic encephalomalacia is present in the left orbital gyrus (image 17 of series 11). Given the locations, these areas are compatible with posttrau matic cerebral contusions (possibly representing coup and contrecoup injurie s). There is mild global parenchymal volume loss, though with maintained ventricular caliber. On the susceptibility weighted sequence, there is substantial hypointensity within the bilateral caudate and lentifo rm nuclei. There is also loss of normal hyperintense signal on this sequence wit hin nigrosome-1 (loss of the normal swallow tail sign), in the posterior t hird of the substantia nigra bilaterally. Image post-processing for quantitative s egmental volume reporting and assessment was performed on an independent computer breakfast server using [employer] software. The clinical indication for performing the p ost-processing was cognitive decline. Review of the quality review trainer images dem onstrates appropriate segmentation of the hippocampi. Left hippocampal volume: 3.46cm3 Right hippocampal volume: 3.65cm3 Hippocampal asymmetry index: -5.29% Combined hippocampal volume: 7.11cm3 Combined hippocampal volume age-adjusted percentile: 64 Combined inferior lateral ventricles (te mporal horns) volume: 2.02cm3 Combined inferior lateral ventricles (te mporal horns) age-adjusted percentile: 75 IMPRESSION: 1. Mild parenchymal volume loss, though hippocampal, mesial temporal and inferior ventricular volumes remain with in normal limits for age on quantitative analysis. 2. Mild leukoaraiosis. 3. Signal abnormality in the basal gangl ia on susceptibility weighted sequence suggestive of iron accumulation. Signal abnormality in bilateral substantia nigra as described. Both of these findin gs are associated with parkinsonism. 4. Focal encephalomalacia in the lateral right temporal lobe and inferior left frontal lobe presumably representing seq uela of posttraumatic contusions. Otoniel HEREDIA MRI PROCEDURES documented in this encounter Visit Diagnoses Diagnosis Unspecified Dementia Unspecified Severit y Without Behavioral Disturbance Psychotic disturbance Mood Disturbance And Anxiety (HCC) documented in this encounter Additional Health Concerns Assessment Noted Time PHQ-9 Depression Total Score: 1 08/26/2017 10:50 AM EUGENIO German documented as of this encounter Care Teams Roll Forger Relationship Specialty Start Date End Date Elsewhere, Pcp PCP - General Family Medicine 07/29/17 documented as of this encounter
--- OUTSIDE RECORDS SUMMARY | 2022-04-13 12:37 | XMS_ITS | Encounter Summary ---
:1955 Author Organization [facility] Address [address] [place] [address] Care Team Providers Name Role Phone Elsewhere, Pcp Primary Care Provider Unavailable Reason for Visit Reason Comments Med Refill Encounter Details Date Type Department Care Team Description 12/11/2017 Refill Division of Gastroenterology in Jaxson Wolfe M.D. 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 [address] [place] [phone] 04/25/2022 Office Visit Otorhinolaryngology Dex Matta APRN, C.N.P., M.S.N. [address] [place] [phone] 05/08/2022 Appointment Laboratory Medicine Angélica Granger P.A.-C. [address] [place] [phone] 05/08/2022 Clinical Admitting/Central Communication Scheduling 05/10/2022 Appointment Radiology Jeremie Rose M.D. [address] [place] [phone] 05/10/2022 Comprehensive Visit Orthopedic Surgery Warner Graves M.D. [address] [place] [phone] 05/22/2022 Appointment Laboratory Medicine Angélica Granger P.A.-CDemetrius [address] [place] [address] [phone] 06/05/2022 Appointment Laboratory Medicine Angélica Granger P.A.-C. [address] [place] [phone] 06/19/2022 Appointment Laboratory Medicine Angélica Granger P.A.-C. [address] [place] [phone] 07/03/2022 Appointment Laboratory Medicine Angélica Granger P.A.-C. [address] [place] [phone] 07/17/2022 Appointment Laboratory Medicine Angélica Granger P.A.-C. [address] [place] [address] [phone] 07/31/2022 Appointment Laboratory Medicine Angélica Granger P.A.-C. [address] [place] [address] [phone] 08/14/2022 Appointment Laboratory Medicine Angélica Granger P.A.-C. [address] [place] [address] [phone] 08/28/2022 Appointment Laboratory Medicine Angélica Granger P.A.-C. [address] [place] [phone] documented as of this encounter Visit Diagnoses Not on filedocumented in this encounter Additional Health Concerns Assessment Noted Time PHQ-9 Depression Total Score: 1 08/26/2017 10:50 AM CS T documented as of this encounter Care Teams Paint Spray Inspector Relationship Specialty Start Date End Date Elsewhere, Pcp PCP - General Family Medicine 07/29/17 documented as of this encounter
--- OUTSIDE RECORDS SUMMARY | 2022-04-13 12:37 | XMS_ITS | Encounter Summary ---
:1955 Author Organization [facility] Address [address] [place] [address] Care Team Providers Name Role Phone Elsewhere, Pcp Primary Care Provider Unavailable Reason for Visit Reason Onset Date Comments Med Request 02/02/2018 Encounter Details Date Type Department Care Team Description 02/02/2018 Clinical Communication Division of Nephrology Zhao Deng Med Request and Hypertension in [place], [place] [phone] 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 [address] [place] [phone] 04/25/2022 Office Visit Otorhinolaryngology Dex Matta APRN, C.N.P., M.S.N. [address] [place] [phone] 05/08/2022 Appointment Laboratory Medicine Angélica Granger P.A.-C. [address] [place] [phone] 05/08/2022 Clinical Admitting/Central Communication Scheduling 05/10/2022 Appointment Radiology Jeremie Rose M.D. [address] [place] [phone] 05/10/2022 Comprehensive Visit Orthopedic Surgery Warner Graves M.D. [address] [place] [phone] 05/22/2022 Appointment Laboratory Medicine Angélica Granger P.A.-C. [address] [place] [phone] 06/05/2022 Appointment Laboratory Medicine Angélica Granger P.A.-C. [address] [place] [address] [phone] 06/19/2022 Appointment Laboratory Medicine Angélica Granger P.A.-C. [address] [place] [phone] 07/03/2022 Appointment Laboratory Medicine Angélica Granger P.A.-C. [address] [place] [phone] 07/17/2022 Appointment Laboratory Medicine Angélica Granger P.A.-C. [address] [place] [address] [phone] 07/31/2022 Appointment Laboratory Medicine Angélica Granger P.A.-C. [address] [place] [address] [phone] 08/14/2022 Appointment Laboratory Medicine Angélica Granger P.A.-C. [address] [place] [phone] 08/28/2022 Appointment Laboratory Angélica Royal P.A.-C. [address] [place] [address] [phone] documented as of this encounter Visit Diagnoses Not on filedocumented in this encounter Additional Health Concerns Assessment Noted Time PHQ-9 Depression Total Score: 1 08/26/2017 10:50 AM CS T documented as of this encounter Care Teams Journalism Professor Relationship Specialty Start Date End Date Elsewhere, Pcp PCP - General Family Medicine 07/29/17 documented as of this encounter
--- OUTSIDE RECORDS SUMMARY | 2022-04-13 12:37 | XMS_ITS | Encounter Summary ---
:1955 Author Organization [facility] Address [address] [place] [address] Care Team Providers Name Role Phone Elsewhere, Pcp Primary Care Provider Unavailable Reason for Referral Outpatient (Routine) - Closed Specialty Diagnoses / Procedures Referred By Contact Refer red To Contact [facility] Medicine Espinoza Bailey [facility] [address] [place] [phone] Referral ID Status Reason Start Date Expiration Date Visits Requ ested Visits Authorized [id number] Closed 02/10/2018 02/10/2019 1 1 Reason for Visit Outpatient (Routine) - Closed Specialty Diagnoses / Procedures Referred By Contact Refer red To Contact [facility] Medicine Diagnoses Chronic Kidney Disease Stage 4 Glomerular Filtration Rate 15-29 ([facility]) [facility] [address] [place] [address] Referral ID Status Reason Start Date Expiration Date Visits Requ ested Visits Authorized [id number] Closed 10/10/2017 04/08/2018 1 1 Encounter Details Date Type Department Care Team Description 02/10/2018 Office Visit Division of Nephrology Mike Bailey rtension And Chronic Kidney Disease Stage 1 To 4 (Primary Dx); and Hypertension in Sada Hobson Chronic Kidney Disease Stage 4 Glomerula r Filtration Rate 15-29 ([facility]) [address] [place] [phone] Social History Tobacco Use Types Packs/Day Years [...] at Date Recorded Male 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 - 02/10/2018 3:15 PM CDT SUBJECTIVE REASON FOR VISIT CHRONIC KIDNEY DISEASE HISTORY OF PRESENT ILLNESS Mr. Singh is a 62 y.o. male came to clinic for follow-up [...] artery stent in 03/2017, hypertension. He was seen by Dr. Coker in 08/2017. He got kidney biopsy due to proteinuria and hematuria with dysmorphic RBC showing focal segmental sclerosis with some collapsing features. The finding of collapsing feature was thought to be due to calcineurin inhibitor. He also has significant arteriosclerosis and arteriolar hyalinosis, [id number]. Interstitial fibrosis with tubular atrophy affects approximately 30-40% of the sample cortex. Overall, he is feeling well and denies any complaints. He asked me about the possibility of kidney transplant evaluation. He stated his cousin was interested in donating him a kidney but wondered if itis ok if his cousin has kidney cysts. His blood pressure was about 140-150 for SBP and 80-85 for DBP. He is taking amlodipine 10 mg daily, carvedilol 6.25 mg two times daily, torsemide 30 mg daily and doxazosin 8 mg at night. He states that he rarely misses the medication. He denies any side effect from medication. He denies any chest pain, shortness of breath, palpitation, lightheadedness, headache,leg swelling, nausea, vomiting, abdominal pain. He urinates 4-5 times at night. He drinks 6-8 glasses of water daily. He denies NSAID use. The following portions of the patient's history were reviewed and updated as appropriate: allergies,current medications, family history, medical history, social history, surgical history and problem list. Review of Systems Cardiovascular: Positive for swelling in the legs or feet. Left ankle swelling but better with compression stocking Genitourinary: Positive for frequent urination. The following systems were negative: Constitutional, Skin, Eyes, ENT, GI, Hematologic, Neuro, Psych No past medical history on file. Past [...] in his father and mother. Current Outpatient Prescriptions Medication Sig Dispense Refill ??? acetaminophen (TYLENOL) 500 mg tablet Take 1 tablet by mouth every 6 (six) hours as needed. Pain. No more than 2000 mg per day. ??? amLODIPine (NORVASC) 10 mg tablet TAKE 1 TABLET BY MOUTH DAILY 100 tablet 0 ??? aspirin (ASPIRIN CHILDRENS) 81 mg chewable tablet Chew daily. ??? atorvastatin (LIPITOR) 10 mg tablet Take 1 tablet by mouth daily. ??? CALCIUM-MAGNESIUM ORAL Take 2 capsules by mouth 2 (two) times a day. ??? carvedilol (COREG) 6.25 mg tablet Take 1 tablet by mouth 2 (two) times a day. 09/24/2017 dose increase ??? cholecalciferol (VITAMIN D3) 2,000 Unit tablet Take 1 tablet by mouth daily. ??? clopidogrel (PLAVIX) 75 mg tablet Take 1 tablet by mouth daily. Maintenance. ??? co-enzyme Q-10 (CO Q-10) 100 mg capsule Take 1 capsule by mouth daily. note from pt to update medication list ??? docosahexanoic acid/epa (FISH OIL ORAL) Take 1 capsule by mouth daily. ??? doxazosin (CARDURA) 8 mg tablet Take 1 tablet (8 mg total) by mouth daily. Take at night 90 tablet 3 ??? fluticasone (FLONASE ALLERGY RELIEF) 50 mcg/actuation nasal spray Administer 1 spray into affected nostril(s) daily as needed. One to two sprays per nostril daily for allergies ??? ipratropium (ATROVENT) 42 mcg (0.06 %) nasal spray Administer 2 sprays into affected nostril(s) 4 (four) times a day as needed. Maintenance ??? Lactobac no.41/Bifidobact no.7 (PROBIOTIC-10 ORAL) 1 capsule 2 (two) times a day as needed. Maintenance, compound ??? lamoTRIgine (LaMICtal) 200 mg tablet Take [...] 1 tablet by mouth at bedtime as needed. Maintenance No current facility-administered medications for this visit. OBJECTIVE VITAL SIGNS Temp 36 ??C Ht 175.2 cm Wt 84 kg BMI 27.37 kg/m?? Constitutional: He is oriented to person, place, and time. He appears well-nourished. HENT: Mouth/Throat: Oropharynx is clear and moist. No oropharyngeal exudate. Eyes: Conjunctivae are normal. No scleral icterus. Neck: No thyromegaly present. Cardiovascular: Normal rate, regular rhythm, normal heart sounds and intact distal pulses. He exhibits no edema. Exam reveals no gallop and no friction rub. No murmur heard. Pulmonary/Chest: Effort normal and breath sounds normal. No respiratory distress. He has no wheezes.He has no rales. He exhibits no tenderness. Abdominal: Soft. Bowel sounds are normal. There is no tenderness. Musculoskeletal: Normal range of motion. He exhibits no deformity. Lymphadenopathy: He has no cervical adenopathy. Neurological: He is alert and oriented to person, place, and time. Skin: Skin is warm. No erythema. Psychiatric: He has a normal mood and affect. His behavior is normal. Judgment and thought content normal. DIAGNOSTIC FINDINGS I have reviewed laboratory, imaging, and other diagnostic studies. Relevant findings are as follows: Lab Results Component Value Date CREATININE 2.66 (H) 02/10/2018 CREATININE 2.61 (H) 02/10/2018 CREATININE 2.58 (H) 02/10/2018 BUN 53 (H) 02/10/2018 BUN 55 (H) 02/10/2018 BUN 55 (H) 02/10/2018 NA 138 02/10/2018 NA 139 02/10/2018 NA 139 02/10/2018 K 3.6 02/10/2018 K 3.7 02/10/2018 K 3.7 02/10/2018 CL 98 02/10/2018 CL 98 02/10/2018 CL 98 02/10/2018 Results for BRUCE SINGH ( ) as of 02/10/2018 17:25 Ref. Range 02/10/2018 08:43 Source Unknown Midstream Appearance Latest Ref Range: Normal Normal Osmolality, U Latest Ref Range: 150 - 1150 mOsm/kg 363 pH, U Latest Ref Range: 4.5 - 8.0 6.8 Glucose Latest Ref Range: 0 - 15 mg/dL 3 Protein Latest Ref Range: <26 mg/dL 57 (H) Protein/Osmolality Latest Ref Range: <0.42 Ratio 1.57 (H) Predicted 24 Hr Protein Latest Units: mg/24 h 1448 Predicted Range Latest Units: mg/24 h 459-4561 Hemoglobin, QL Latest Ref Range: Negative Small (A) Microscopy Unknown Abnormal RBC Latest Ref Range: <3 /hpf 3-10 (A) Dysmorphic RBC Latest Ref Range: <25 % <25 Casts, Hyaline Latest Units: /lpf Occas Fat, in Casts Latest Units: /hpf Occas (A) Results for BRUCE SINGH ( ) as of 02/10/2018 17:25 Ref. Range 02/10/2018 08:43 Microalbumin Latest Units: mg/L 453.2 Creatinine Latest Units: mg/dL 59 Albumin/Creatinine Ratio Latest Ref Range: <17 mg/g 768 (H) US kidney with doppler (02/10/2018) 1. Right renal artery stenosis, likely not significant changed. 2. Widely patent left renal artery stent. 3. 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 ASSESSMENT / PLAN 1. 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 His kidney function appears stable with baseline of 2.6- 2.8. His estimated GFR of 25 based on creatinine or 18 based on cystatin C. He does have proteinuria with UACR of 768. 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 His risk of ESRD requiring dialysis was 20.2% in 2 years and 50.5% in 5 years. Given GFR < 20, we offer him transplant evaluation. Dr. Chavez will contacttransplant coordinator to arrange for evaluation. His blood pressure at the visit was well controlled but his home blood pressure was not. This might indicate masked hypertension. We might need to consider ambulatory blood pressure monitoring for assessment. We discussed the addition of ACEI/ARB in his anti-hypertensive regimen given severely increased albuminuria. He would like to defer it for now as he has history of significantly elevated creatinine with lisinopril before. He will check blood pressure weekly at his local clinic. If not well controlled, will consider start ACEI/ARB. The addition of ACEI/ARB in setting of advanced CKD required close monitoring of creatinine elevation and hyperkalemia. 2. Renal artery stenosis s/p left renal artery stent in 03/2017. US showed widely patent left renal artery stent 3. Hypertension; as discussed above. Will continue amlodipine 10 mg daily, carvedilol 6.25 mg two times daily, torsemide 30 mg daily and doxazosin 8 mg at night. Consider addition of ACEI/ARB. He will see me again in 6 months Espinoza Bailey M.D. Associated attestation - Akin Chavez M.D. - 02/11/2018 2:33 PM CDT I saw and evaluated Mr. Singh with Dr. Bailey. I confirmed the garcia elements of the history and physical exam. I agree with the findings, assessment and plan of care as outlined in the note. Patient is here for follow-up on his chronic kidney disease stage 4 in setting of previous history of liver transplantation for autoimmune hepatitis. Also has history of unilateral renal artery stenosis status post left renal artery stenting in late 2016. He status post previous burns paiute kidney biopsy due to the presence of proteinuria that showed mostly focal segmental sclerosis some collapsing features. His CKD 4 is relatively stable. I feel that the patient could be referred for kidney transplantation albeit is not imminent so will facilitate that for him. Akin Chavez M.D. documented in this encounter Miscellaneous Notes Addendum Note - Espinoza Bailey M.D. - 02/10/2018 3:15 PM CDT Addended by: ESPINOZA BAILEY on: 02/10/2018 05:55 PM Modules accepted: Orders documented in this encounter Plan of Treatment Upcoming Encounters Date Type Specialty Care Team Description 04/24/2022 Appointment Laboratory Medicine Angélica Granger P.A.-C. [address] [place] [phone] 04/25/2022 Office Visit Otorhinolaryngology eDx Matta APRN C.N.P., M.S.N. [address] [place] [phone] 05/08/2022 Appointment Laboratory Medicine Angélica Granger P.A.-C. [address] [place] [address] [phone] 05/08/2022 Clinical Admitting/Central Communication Scheduling 05/10/2022 Appointment Radiology Jeremie Rose M.D. [address] [place] [address] [phone] 05/10/2022 Comprehensive Visit Orthopedic Surgery Warner Graves M.D. [address] [place] [address] [phone] 05/22/2022 Appointment Laboratory Medicine Angélica Granger P.A.-C. [address] [place] [address] [phone] 06/05/2022 Appointment Laboratory Medicine Angélica Granger P.A.-C. [address] [place] [phone] 06/19/2022 Appointment Laboratory Medicine Angélica Granger P.A.-C. [address] [place] [phone] 07/03/2022 Appointment Laboratory Medicine Angélica Granger P.A.-C. [address] [place] [phone] 07/17/2022 Appointment Laboratory Medicine Angélica Granger P.A.-C. [address] [place] [phone] 07/31/2022 Appointment Laboratory Medicine Angélica Granger P.A.-C. [address] [place] [phone] 08/14/2022 Appointment Laboratory Medicine Angélica Granger P.A.-C. [address] [place] [phone] 08/28/2022 Appointment Laboratory Medicine Angélica Granger P.A.-C. 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) [facility] gist Method Time Signature Source Midstream 08/24/2018 [facility] 8:19 AM BOGGER OPERATOR [facility] Appearance Normal Normal 08/24/2018 [facility] 8:52 AM BOGGER OPERATOR LABORATORIES [facility] Osmolality, U 376 150 - 1150 08/24/2018 [facility] mOsm/kg 9:24 AM BOGGER OPERATOR [facility] pH, U 6.8 4.5 - 8.0 08/24/2018 [facility] 9:24 AM BOGGER OPERATOR [facility] Comment: ----ADDITIONAL INFORMATION---- This test was developed and its performa nce characteristics determined by [facility] in a manner co nsistent with CLIA requirements. This test has not bee n cleared or approved by the U.S. Food and Drug Admin istration. Glucose 4 0 - 15 mg/dL 08/24/2018 8:52 AM [facility] Protein, U 67 (H) <26 mg/dL 08/24/2018 9:41 AM [facility] Comment: ----ADDITIONAL INFORMATION---- On 12/17/2016 the total protein assay me thod changed resulting in approximately a 15% increase in prote in values. Protein/Osmolality 1.78 (H) <0.42 Ratio 08/24/2018 9:41 AM [facility] Comment: ----ADDITIONAL INFORMATION---- On 12/17/2016 the total protein assay me thod changed resulting in approximately a 15% increase in prote in values. Predicted 24 Hr 1633 mg/24 h 08/24/2018 9:41 AM [facility] Protein [facility] Predicted Range 518-5145 mg/24 h 08/24/2018 9:41 AM [facility] Hemoglobin, QL Trace (A) Negative 08/24/2018 10:19 AM [facility] Specimen Anatomical Collection Method Collection Time Receive d Time (Source) Location / / Volume Laterality Urine (Urine, 08/24/2018 8:19 AM 08/25/19 8:19 Voided) BOGGER OPERATOR AM [facility] Espinoza Bailey M.D. LAB URINE ORDERABLES Performing Organization Address City/State/ZIP Code Phon e Number [facility] LABORATORIES - [address] [place], [place] [address] [facility] (ABNORMAL) Protein/Creatinine Ratio, Random, Urine (08/24/2018 8:19 AM [facility]) P athologist Signature Protein, 67 mg/dL 08/24/2018 [facility] Total, Random, 9:41 AM [facility]ORATORIES - [facility] Comment: ----ADDITIONAL INFORMATION---- On 12/17/2016 the total protein assay me thod changed resulting in approximately a 15% increase in prote in values. Creatinine 92 mg/dL 08/24/2018 8:52 AM [facility] Concentration [facility] Protein/Creatinine 0.73 (H) <0.18 mg/mg 08/24/2018 9:41 AM [facility] Ratio [facility] Comment: ----ADDITIONAL INFORMATION---- On 12/17/2016 the total protein assay me thod changed resulting in approximately a 15% increase in prote in values. Specimen Anatomical Collection Method Collection Time Receive d Time (Source) Location / / Volume Laterality Urine (Urine, 08/24/2018 8:19 AM 08/25/19 19 8:19 Voided) BOGGER OPERATOR AM BOGGER OPERATOR Espinoza Bailey M.D. LAB URINE ORDERABLES Performing Organization Address City/[facility] Phon e Number [facility] LABORATORIES - [address] [place] [phone] [facility] (ABNORMAL) Microalbumin, Random, Urine (08/24/2018 8:19 AM BOGGER OPERATOR) athologist Signature Microalbumin 503.6 mg/L 08/24/2018 [facility] 9:05 AM [facility] Comment: ----ADDITIONAL INFORMATION---- This test has been modified from the bernabe holden's instructions. Its performance characteri stics were determined by [facility] in a manner co nsistent with CLIA requirements. This test has not bee n cleared or approved by the U.S. Food and Drug Admin istration. Creatinine 92 mg/dL 08/24/2018 8:52 AM [facility] Albumin/Creatinine 547 (H) <17 mg/g 08/24/2018 9:05 AM [facility] S Specimen Anatomical Collection Method Collection Time Receive d Time (Source) Location / / Volume Laterality Urine (Urine, 08/24/2018 8:19 AM 08/25/19 19 8:19 Voided) BOGGER OPERATOR AM BOGGER OPERATOR Espinoza Bailey M.D. LAB URINE ORDERABLES Performing Organization Address City/[facility] Phon e Number [facility] LABORATORIES - [address] (ABNORMAL) CBC with Differential, Blood (08/24/2018 7:38 AM BOGGER OPERATOR) Patholo gist Method Time Signature Hemoglobin 11.6 (L) 13.2 - 08/24/2018 [facility] 16.6 g/dL 7:53 AM [facility] Hematocrit 34.5 (L) 38.3 - 08/24/2018 [facility] 48.6 % 7:53 AM BOGGER OPERATOR LABORATORIES - [facility] Erythrocytes 3.68 (L) 4.35 - 08/24/2018 [facility] 5.65 7:53 AM BOGGER OPERATOR LABORATORIES - x10(12)/L [facility] MCV 93.8 78.2 - 08/24/2018 [facility] 97.9 fL 7:53 AM BOGGER OPERATOR LABORATORIES - [facility] RBC Distrib 12.0 11.8 - 08/24/2018 [facility] Width 14.5 % 7:53 AM BOGGER OPERATOR LABORATORIES - [facility] Platelet Count 214 135 - 317 08/24/2018 [facility] x10(9)/L 7:53 AM BOGGER OPERATOR LABORATORIES - [facility] Leukocytes 4.6 3.4 - 9.6 08/24/2018 [facility] x10(9)/L 7:53 AM BOGGER OPERATOR LABORATORIES - [facility] Neutrophils 2.54 1.56 - 08/24/2018 [facility] 6.45 7:53 AM BOGGER OPERATOR LABORATORIES - x10(9)/L [facility] Lymphocytes 1.37 0.95 - 08/24/2018 [facility] 3.07 7:53 AM BOGGER OPERATOR LABORATORIES - x10(9)/L [facility] Monocytes 0.55 0.26 - 08/24/2018 [facility] 0.81 7:53 AM BOGGER OPERATOR LABORATORIES - x10(9)/L [facility] Eosinophils 0.09 0.03 - 08/24/2018 [facility] 0.48 7:53 AM BOGGER OPERATOR LABORATORIES - x10(9)/L [facility] Basophils <0.03 0.01 - 08/24/2018 [facility] 0.08 7:53 AM BOGGER OPERATOR LABORATORIES - x10(9)/L [facility] Specimen Anatomical Collection Method Collection Time Receive d Time (Source) Location / / Volume Laterality Blood (Blood, 08/24/2018 7:38 AM 08/25/19 19 7:43 Venous) BOGGER OPERATOR AM BOGGER OPERATOR Espinoza Bailey M.D. LAB BLOOD ADD-ON Performing Organization Address City/State/ZIP Code Phon e Number [facility] LABORATORIES - [address] [place], [place] [address] [facility] (ABNORMAL) Parathyroid Hormone (PTH) (08/24/2018 7:38 AM BOGGER OPERATOR) [facility] Method Time Signature Parathyroid 124 (H) 15 - 65 08/24/2018 [facility] Hormone (PTH), pg/mL 8:53 AM BOGGER OPERATOR LABORATORIES - S [facility] Specimen Anatomical Collection Method Collection Time Receive d Time (Source) Location / / Volume Laterality Blood (Blood, 08/24/2018 7:38 AM 08/25/19 19 7:43 Venous) BOGGER OPERATOR AM BOGGER OPERATOR Espinoza Bailey M.D. LAB BLOOD ADD-ON Performing Organization Address City/State/ZIP Code Phon e Number [facility] LABORATORIES - [address] [place], [place] [address] [facility] (ABNORMAL) Renal Function Panel (08/24/2018 7:38 AM BOGGER OPERATOR) [facility] gist Method Time Signature Potassium, S 4.0 3.6 - 5.2 08/24/2018 [facility] mmol/L 8:53 AM BOGGER OPERATOR LABORATORIES - [facility] Sodium, S 137 135 - 145 08/24/2018 [facility] mmol/L 8:53 AM BOGGER OPERATOR LABORATORIES - [facility] Chloride, S 98 98 - 107 08/24/2018 [facility] mmol/L 8:53 AM BOGGER OPERATOR LABORATORIES - [facility] Bicarbonate, S 26 22 - 29 08/24/2018 [facility] mmol/L 8:53 AM BOGGER OPERATOR LABORATORIES - [facility] Anion Gap 13 7 - 15 08/24/2018 [facility] 8:53 AM BOGGER OPERATOR LABORATORIES - [facility] BUN (Blood 51 (H) 8 - 24 08/24/2018 [facility] Urea mg/dL 8:53 AM BOGGER OPERATOR LABORATORIES - Nitrogen), S [facility] Creatinine 2.71 (H) 0.74 - 08/24/2018 [facility] 1.35 8:53 AM BOGGER OPERATOR LABORATORIES - mg/dL [facility] eGFR-Non 24 (L) >=60 08/24/2018 [facility] Black/ mL/min/BS 8:53 AM BOGGER OPERATOR LABORATORIES - [place] [facility] Comment: ----ADDITIONAL INFORMATION---- Estimated GFR calculated using the 2009 CKD_EPI creatinine equation. eGFR-Black/ 28 (L) >=60 mL/min/BSA 08/24/2018 8:53 [facility] [place] AM BOGGER OPERATOR LABORATORIES - [facility] Comment: ----ADDITIONAL INFORMATION---- Estimated GFR calculated using the 2009 CKD_EPI creatinine equation. Calcium, Total, S 9.1 8.8 - 10.2 08/24/2018 8:53 AM [facility] mg/dL BOGGER OPERATOR LABORATORIES [facility] S Glucose, S 126 70 - 140 mg/dL 08/24/2018 8:53 AM [facility] S Albumin, S 4.3 3.5 - 5.0 g/dL 08/24/2018 8:[address] [facility] LABORATORIES [facility] S Phosphorus 3.5 2.5 - 4.5 mg/dL 08/24/2018 8:53 AM [facility] (Inorganic), S [facility] - [employer] [place] [employer] [facility] Specimen Anatomical Collection Method Collection Time Receive d Time (Source) Location / / Volume Laterality Blood (Blood, 08/24/2018 7:38 AM 08/25/19 19 7:43 Venous) BOGGER OPERATOR AM BOGGER OPERATOR Espinoza Bailey M.D. LAB BLOOD ADD-ON Performing Organization Address City/[facility] Phon e Number [facility] - [address] (ABNORMAL) Cystatin C with Estimated GFR (03/25/2018 7:45 AM CDT) athologist Signature eGFR by 16 >60 03/25/2018 [facility] Cystatin C mL/min/BSA 9:31 AM CDT LABORATORIES [facility] Comment: ----ADDITIONAL INFORMATION---- Cystatin C-based eGFR may differ substan tially from creatinine-based eGFR in patients with a bnormal muscle mass or acutely changing renal function. ??Pl ease interpret together with relevant clinical features. Cystatin C, S 3.21 (H) 0.77 - 1.42 03/25/2018 9:31 AM [facility] mg/L CDT LABORATORIES [facility] Specimen Anatomical Collection Method Collection Time Receive d Time (Source) Location / / Volume Laterality Blood (Blood, 03/25/2018 7:45 AM 03/25/20 18 9:03 Venous) CDT AM CDT Espinoza Bailey M.D. LAB BLOOD ADD-ON Performing Organization Address City/[facility] Phon e Number [facility] - [address] documented in this encounter Visit Diagnoses Diagnosis Hypertension And Chronic Kidney Disease Stage 1 To 4 - Primary Chronic Kidney Disease Stage 4 Glomerula r Filtration Rate 15-29 (HCC) documented in this encounter Additional Health Concerns Assessment Noted Time PHQ-9 Depression Total Score: 1 08/26/2017 10:50 AM CS T documented as of this encounter Care Teams Social Welfare Administrator Relationship Specialty Start Date End Date Elsewhere, Pcp PCP - General Family Medicine 07/29/17 documented as of this encounter
--- OUTSIDE RECORDS SUMMARY | 2022-04-13 12:37 | XMS_ITS | Encounter Summary ---
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 - 11/03/2017 9:19 AM CDT Outside lab results from 10/23/2017 were faxed to Nephrology and Hypertension staff. These results areavailable to view in Care Everywhere. I communicated this information to Dr. Coker. documented in this encounter Plan of Treatment Upcoming Encounters Date Type Specialty Care Team Description 04/24/2022 Appointment Laboratory Medicine Angélica Granger P.A.-CDemetrius [address] [place] [phone] 04/25/2022 Office Visit Otorhinolaryngology Dex Matta APRN C.N.P., M.S.N. [address] [place] [phone] 05/08/2022 Appointment Laboratory Medicine Angélica Granger P.A.-CDemetrius [address] [place] [phone] 05/08/2022 Clinical Admitting/Central Communication Scheduling 05/10/2022 Appointment Radiology Jeremie Rose M.D. [address] [place] [phone] 05/10/2022 Comprehensive Visit Orthopedic Surgery Warner Graves M.D. [address] [place] [phone] 05/22/2022 Appointment Laboratory Medicine Angélica Granger P.A.-C. [address] [place] [phone] 06/05/2022 Appointment Laboratory Medicine Angélica Granger P.A.-C. [address] [place] [phone] 06/19/2022 Appointment Laboratory Medicine Angélica Granger P.A.-C. [address] [place] [phone] 07/03/2022 Appointment Laboratory Medicine Angélica Granger P.A.-C. [address] [place] [phone] 07/17/2022 Appointment Laboratory Medicine Angélica Granger P.A.-C. [address] [place] [phone] 07/31/2022 Appointment Laboratory Medicine Angélica Granger P.A.-C. [address] [place] [phone] 08/14/2022 Appointment Laboratory Medicine Angélica Granger P.A.-C. [address] [place] [phone] 08/28/2022 Appointment Laboratory Medicine Angélica Granger P.A.-C. [address] [place] [phone] documented as of this encounter Visit Diagnoses Not on filedocumented in this encounter Additional Health Concerns Assessment Noted Time PHQ-9 Depression Total Score: 1 08/26/2017 10:50 AM CS T documented as of this encounter Care Teams Sales Promotion Manager Relationship Specialty Start Date End Date Elsewhere, Pcp PCP - General Family Medicine 07/29/17 documented as of this encounter
--- OUTSIDE RECORDS SUMMARY | 2022-04-13 12:37 | XMS_ITS | Encounter Summary ---
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 [address] [place] [phone] 04/25/2022 Office Visit Otorhinolaryngology Dex Matta APRN, CDemetriusNDemetriusPDemetrius, M.S.N. [address] [place] [phone] 05/08/2022 Appointment Laboratory Medicine Angélica Granger P.A.-C. [address] [place] [phone] 05/08/2022 Clinical Admitting/Central Communication Scheduling 05/10/2022 Appointment Radiology Jeremie Rose M.D. [address] [place] [phone] 05/10/2022 Comprehensive Visit Orthopedic Surgery Warner Graves M.D. [address] [place] [phone] 05/22/2022 Appointment Laboratory Medicine Angélica Granger P.A.-C. [address] [place] [phone] 06/05/2022 Appointment Laboratory Medicine Angélica Granger P.A.-C. [address] [place] [phone] 06/19/2022 Appointment Laboratory Medicine Angélica Granger P.A.-C. [address] [place] [phone] 07/03/2022 Appointment Laboratory Medicine Angélica Granger P.A.-C. [address] [place] [phone] 07/17/2022 Appointment Laboratory Medicine Angélica Granger P.A.-C. [address] [place] [phone] 07/31/2022 Appointment Laboratory Medicine Angélica Granger P.A.-C. [address] [place] [phone] 08/14/2022 Appointment Laboratory Medicine Angélica Granger P.A.-C. [address] [place] [phone] 08/28/2022 Appointment Laboratory Angélica Royal P.A.-C. [address] [place] [phone] documented as of this encounter Visit Diagnoses Not on filedocumented in this encounter Additional Health Concerns Assessment Noted Time PHQ-9 Depression Total Score: 1 08/26/2017 10:50 AM CS T documented as of this encounter Care Teams Schedule Supervisor Relationship Specialty Start Date End Date Elsewhere, Pcp PCP - General Family Medicine 07/29/17 documented as of this encounter
--- OUTSIDE RECORDS SUMMARY | 2022-04-13 12:37 | XMS_ITS | Encounter Summary ---
:1955 Author Organization [facility] Address [address] [place] [address] Care Team Providers Name Role Phone Elsewhere, Pcp Primary Care Provider Unavailable Reason for Visit Reason Comments Hypertension Outpatient (Routine) - Closed Specialty Diagnoses / Procedures Referred By Contact Refer red To Contact Nephrology and Diagnoses [facility] [address] [place] [phone] Referral ID Status Reason Start Date Expiration Date Visits Requ ested Visits Authorized [id number] Closed 10/21/2017 04/19/2018 1 1 Encounter Details Date Type Department Care Team Description 02/10/2018 Nurse Only Division of Nephrology and Mercedez Wolff M.D. [address] [place] [phone] Hypertension Hypertension in [facility] Ailin Maloney, R.N. [address] [place] [phone] [place] [address] [place] [address] [phone] Social History Tobacco Use Types Packs/Day [...] or slept in a alf (including now)? 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 - 02/10/2018 1:00 PM CDT Provider Name: Dr Coker Reason for Visit: Returning short-term patient Relevant History: Liver transplant, CKD, hypertension, bipolar disorder Arm Use: Either. Cuff Size: Large adult Home BP Monitor?: Yes- upper arm digital monitor Patient Contact Information: Preferred contact: portal Exercise: Golf 2-3 times per week, elliptical 2 timer per week followed by weight lifting, biking once a week Patient's weight is: stable Tobacco Use: History Smoking Status ??? Never Smoker Smokeless Tobacco ??? Never Used Alcohol Use: History Alcohol Use No Dietary Assessment: 50 % of his meals are eaten out. He is mindful of his sodium content, reads labels and avoids processed foods. Home blood pressure trends are reports systolic readings have been in the 140s.. Plan of Care: In-office blood pressures are: within goal. Dizziness/Lightheadedness: denies dizziness or lightheadedness. Recommended he continue with a low sodium diet, Additional recommendations include: maintain good hydration Recommend having home blood pressure monitor assessed for accuracy. He has an appointment with Dr aBiley later today. documented in this encounter Plan of Treatment Upcoming Encounters Date Type Specialty Care Team Description 04/24/2022 Appointment Laboratory Medicine Angélica Granger, P.A.-C. [address] [place] [phone] 04/25/2022 Office Visit Otorhinolaryngology Dex Matta, RAMONA, C.N.P., M.S.N. [address] [place] [address] [phone] 05/08/2022 Appointment Laboratory Medicine Angélica Granger, P.A.-C. [address] [place] [phone] 05/08/2022 Clinical Admitting/Central Communication Scheduling 05/10/2022 Appointment Radiology Jeremie Rose M.D. [address] [place] [phone] 05/10/2022 Comprehensive Visit Orthopedic Surgery Warner Graves M.D. [address] [place] [phone] 05/22/2022 Appointment Laboratory Medicine Angélica Granger P.A.-C. [address] [place] [phone] 06/05/2022 Appointment Laboratory Medicine Angélica Granger P.A.-C. [address] [place] [phone] 06/19/2022 Appointment Laboratory Angélica Royal P.A.-C. [address] [place] [phone] 07/03/2022 Appointment Laboratory Angélica Royal P.A.-C. [address] [place] [phone] 07/17/2022 Appointment Laboratory Angélica Royal P.A.-C. [address] [place] [phone] 07/31/2022 Appointment Laboratory Angélica Royal P.A.-C. [address] [place] [phone] 08/14/2022 Appointment Laboratory Angélica Royal P.A.-C. [address] [place] [phone] 08/28/2022 Appointment Laboratory Angélica Royal P.A.-C. [address] [place] [phone] documented as of this encounter Visit Diagnoses Diagnosis Hypertension Essential Primary documented in this encounter Additional Health Concerns Assessment Noted Time PHQ-9 Depression Total Score: 1 08/26/2017 10:50 AM CS T documented as of this encounter Care Teams Biofuels Operations Manager Relationship Specialty Start Date End Date Elsewhere, Pcp PCP - General Family Medicine 07/29/17 documented as of this encounter
--- OUTSIDE RECORDS SUMMARY | 2022-04-13 12:37 | XMS_ITS | Encounter Summary ---
:1955 Author Organization [facility] Address [address] [place] [address] Care Team Providers Name Role Phone Elsewhere, Pcp Primary Care Provider Unavailable Encounter Details Date Type Department Care Team Description 10/29/2017 Hospital Encounter Department of Vanessa Parra Liver Laboratory Medicine RAMONA Draper, C.N .PDemetrius (HCC) and Pathology, [address] [place] [address] in [place], [place] [phone] [place] [address] [place], [place] (Work) [phone] Social History Tobacco Use Types Packs/Day Years [...] Recorded 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 amLODIPine (NORVASC) 10 Take 1 tablet by 0 201601/31/2018 mg tablet mouth daily. Maintenance atorvastatin (LIPITOR) 10 Take 1 tablet by 0 08/2109/23/2018 mg tablet mouth daily. buPROPion (WELLBUTRIN SR) Take 1 tablet by 0 03/0 11/201702/10/2018 100 mg 12 hr tablet mouth daily. In the morning CALCIUM CITRATE ORAL Take 2 capsules by 0 015 02/10/2018 mouth 2 (two) times a day. Maintenance CALCIUM-MAGNESIUM ORAL Take 2 capsules by 0 [...] doxazosin (CARDURA) 8 mg Take 1 tablet by 0 04/1402/04/2018 tablet mouth daily as needed. Only take medication if systolic blood pressure is greater than 165. Might be able to stop as a result of the left renal stent. #90 tab(s). Maintenance. fluticasone (FLONASE Administer 1 spray 0 017 02/07/2020 ALLERGY RELIEF) 50 into affected mcg/actuation nasal spray nostril(s) daily as needed. One to two sprays per nostril daily for allergies; mostly for fall allergies ipratropium (ATROVENT) 42 Administer 2 sprays 0 1 11/13/2020 mcg (0.06 %) nasal spray into affected nostril(s) 4 (four) times a day as needed for rhinitis. Maintenance Lactobac no.41/Bifidobact 1 capsule 2 (two) 0 08/201603/26/2018 no.7 (PROBIOTIC-10 ORAL) times a day as needed. Maintenance, compound lamoTRIgine (LaMICtal) Take 1 tablet by 0 017 07/15/2018 200 mg tablet mouth 2 (two) times a day. levothyroxine (SYNTHROID, Take 1 tablet by 0 07/2409/14/2018 LEVOTHROID) 25 mcg tablet mouth daily. Take in the a.m. 30 minutes before breakfast. Maintenance. multivitamin tablet Take 1 tablet by 0 06/18/2013 10/12/2021 mouth daily. Maintenance mycophenolate (CELLCEPT) Take 1 tablet by 0 12/0612/15/2017 500 mg tablet mouth 2 (two) times a day. z94.4 liver transplant predniSONE (DELTASONE) 5 Take 1 tablet by 0 12/1201/31/2018 mg tablet mouth daily. Maintenance tacrolimus (PROGRAF) 0.5 Take 2 capsules by 0 02/10/2018 mg capsule mouth every 12 (twelve) hours. torsemide (DEMADEX) 10 mg Take 3 tablets by 0 12/25/2018 tablet mouth daily. Restarted on 03-26-17. Maintenance. traZODone (DESYREL) 100 Take 1 tablet by 0 201610/12/2020 mg tablet mouth at bedtime as needed for sleep. Maintenance documented as 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 [address] [place] [phone] 04/25/2022 Office Visit Otorhinolaryngology Dex Matta APRN, C.N.P., M.S.N. [address] [place] [phone] 05/08/2022 Appointment Laboratory Medicine Angélica Granger P.A.-C. [address] [place] [phone] 05/08/2022 Clinical Admitting/Central Communication Scheduling 05/10/2022 Appointment Radiology Jeremie Rose M.D. [address] [place] [phone] 05/10/2022 Comprehensive Visit Orthopedic Surgery Warner Graves M.D. [address] [place] [phone] 05/22/2022 Appointment Laboratory Medicine Angélica Granger P.A.-C. [address] [place] [phone] 06/05/2022 Appointment Laboratory Medicine Angélica Granger P.A.-C. [address] [place] [phone] 06/19/2022 Appointment Laboratory Medicine Angélica Granger P.A.-C. [address] [place] [phone] 07/03/2022 Appointment Laboratory Medicine Angélica Granger P.A.-C. [address] [place] [phone] 07/17/2022 Appointment Laboratory Medicine Angélica Granger P.A.-C. [address] [place] [phone] 07/31/2022 Appointment Laboratory Medicine Angélica Gragner P.A.-C. [address] [place] [phone] 08/14/2022 Appointment Laboratory Medicine Angélica Granger P.A.-C. [address] [place] [phone] 08/28/2022 Appointment Laboratory Medicine Angélica Granger P.A.-C. [address] [place] [phone] documented as of this encounter Visit Diagnoses Diagnosis Transplant Liver (HCC) documented in this encounter Additional Health Concerns Assessment Noted Time PHQ-9 Depression Total Score: 1 08/26/2017 10:50 AM CS T documented as of this encounter Care Teams Clinical Geneticist Relationship Specialty Start Date End Date Elsewhere, Pcp PCP - General Family Medicine 07/29/17 documented as of this encounter
--- OUTSIDE RECORDS SUMMARY | 2022-04-13 12:37 | XMS_ITS | Encounter Summary ---
:1955 Author Organization [facility] Address [address] [place] [address] Care Team Providers Name Role Phone Elsewhere, Pcp Primary Care Provider Unavailable Reason for Referral Behavioral Health (Routine) - Closed Specialty Diagnoses / Procedures Referred By Contact Refer red To Contact Psychology / Diagnoses Unspecified Dementia Unspecified Severity Without Behavioral Disturbance Psychotic disturbance Mood Disturbance And Anxiety (HCC) [facility] and [facility] PSY Neuropsychology testing [facility] [address] [place] [phone] Referral ID Status Reason Start Date Expiration Date Visits Requ ested Visits Authorized [id number] Closed 02/06/2018 02/06/2019 1 1 Encounter Details Date Type Department Care Team Description 02/06/2018 Orders Only Otoniel Julio or [facility] MDemetriusDDemetrius Disorder Without Transplantation and [address] [place] [address] Behavior Disturbance Clinical Regeneration in [place], [place] [phone] [place] [address] [place] [address] (Work) [phone] Social History Tobacco Use Types Packs/Day Years [...] 12/15/2021 organizations such as pentecostal groups, unions, fraPlayboox or athletic groups, or school groups? 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 [address] [place] [phone] 05/08/2022 Appointment Laboratory Medicine Angélica Granger P.A.-CDemetrius [address] [place] [phone] 05/08/2022 Clinical Admitting/Central Communication Scheduling 05/10/2022 Appointment Radiology Jeremie Rose M.D. [address] [place] [phone] 05/10/2022 Comprehensive Visit Orthopedic Surgery Warner Graves M.D. [address] [place] [address] [phone] 05/22/2022 Appointment Laboratory Medicine Angélica Granger P.A.-C. [address] [place] [phone] 06/05/2022 Appointment Laboratory Medicine Angélica Granger P.A.-C. [address] [place] [phone] 06/19/2022 Appointment Laboratory Medicine Angélica Granger P.A.-C. [address] [place] [phone] 07/03/2022 Appointment Laboratory Medicine Angélica Granger P.A.-C. [address] [place] [phone] 07/17/2022 Appointment Laboratory Medicine Angélica Granger P.A.-C. [address] [place] [phone] 07/31/2022 Appointment Laboratory Medicine Angélica Granger P.A.-C. [address] [place] [phone] 08/14/2022 Appointment Laboratory Medicine Angélica Granger P.A.-C. [address] [place] [phone] 08/28/2022 Appointment Laboratory Medicine Angélica Granegr P.A.-C. [address] [place] [phone] documented as of this encounter Results (ABNORMAL) CBC no call back, reflex T/S HGB <8 (02/10/2018 7:49 AM CDT) [facility] Method Time Signature Hemoglobin 12.2 (L) 13.2 - 02/10/2018 [facility] 16.6 g/dL 8:14 AM CDT LABORATORIES - [facility] Hematocrit 36.5 (L) 38.3 - 02/10/2018 [facility] 48.6 % 8:14 AM CDT [facility] Erythrocytes 3.93 (L) 4.35 - 02/10/2018 [facility] 5.65 8:14 AM CDT LABORATORIES - x10(12)/L [facility] MCV 92.9 78.2 - 02/10/2018 [facility] 97.9 fL 8:14 AM CDT [facility] RBC Distrib 12.4 11.8 - 02/10/2018 [facility] Width 14.5 % 8:14 AM CDT [facility] Platelet Count 172 135 - 317 02/10/2018 [facility] x10(9)/L 8:14 AM CDT [facility] Leukocytes 3.7 3.4 - 9.6 02/10/2018 [facility] x10(9)/L 8:14 AM CDT [facility] Neutrophils 1.67 1.56 - 02/10/2018 [facility] 6.45 8:14 AM CDT LABORATORIES - x10(9)/L [facility] Lymphocytes 1.51 0.95 - 02/10/2018 [facility] 3.07 8:14 AM CDT LABORATORIES - x10(9)/L [facility] Monocytes 0.42 0.26 - 02/10/2018 [facility] 0.81 8:14 AM CDT LABORATORIES - x10(9)/L [facility] Eosinophils 0.11 0.03 - 02/10/2018 [facility] 0.48 8:14 AM CDT LABORATORIES - x10(9)/L [facility] Basophils <0.03 0.01 - 02/10/2018 [facility] 0.08 8:14 AM CDT LABORATORIES - x10(9)/L [facility] Specimen Anatomical Collection Method Collection Time Receive d Time (Source) Location / / Volume Laterality Blood (Blood, 02/10/2018 7:49 AM 02/11/20 8:00 Venous) CDT AM CDT Otoniel Linares M.D. LAB BLOOD NON ADD-ON Performing Organization Address City/State/ZIP Code Phon e Number [facility] LABORATORIES - [address] [place] [address] [facility] documented in this encounter Visit Diagnoses Diagnosis Unspecified Dementia Unspecified Severit y Without Behavioral Disturbance Psychotic disturbance Mood Disturbance And Anxiety (HCC) documented in this encounter Additional Health Concerns Assessment Noted Time PHQ-9 Depression Total Score: 1 08/26/2017 10:50 AM CS T documented as of this encounter Care Teams Individualized Education Plan Aide Relationship Specialty Start Date End Date Elsewhere, Pcp PCP - General Family Medicine 07/29/17 documented as of this encounter
--- OUTSIDE RECORDS SUMMARY | 2022-04-13 12:37 | XMS_ITS | Encounter Summary ---
:1955 Author Organization [facility] Address [address] [place] [address] Care Team Providers Name Role Phone Elsewhere, Pcp Primary Care Provider Unavailable Reason for Visit Reason Comments Med Refill Encounter Details Date Type Department Care Team Description 02/04/2018 Refill Division of Nephrology and Idalmis Boswell, RDemetriusNDemetrius Med Refill Hypertension in [place], 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 - 02/04/2018 1:41 PM CDT Prescription forwarded to provider for approval. Outside RN protocol due to historical entry. documented in this encounter Plan of Treatment Upcoming Encounters Date Type Specialty Care Team Description 04/24/2022 Appointment Laboratory Medicine Angélica Granger, P.A.-C. [address] [place] [phone] 04/25/2022 Office Visit Otorhinolaryngology Dex Matta, RAMONA, C.N.P., M.S.N. [address] [place] [address] [phone] 05/08/2022 Appointment Laboratory Medicine Angélica Granger, P.A.-C. [address] [place] [address] [phone] 05/08/2022 Clinical Admitting/Central Communication Scheduling 05/10/2022 Appointment Radiology Jeremie Rose M.D. [address] [place] [address] [phone] 05/10/2022 Comprehensive Visit Orthopedic Surgery Warner Graves M.D. [address] [place] [phone] 05/22/2022 Appointment Laboratory Medicine Angélica Granger P.A.-C. [address] [place] [address] [phone] 06/05/2022 Appointment Laboratory Medicine Angélica Granger P.A.-C. [address] [place] [address] [phone] 06/19/2022 Appointment Laboratory Medicine Angélica Granger P.A.-C. [address] [place] [phone] 07/03/2022 Appointment Laboratory Medicine Angélica Granger P.A.-C. [address] [place] [phone] 07/17/2022 Appointment Laboratory Medicine Angélica Granger P.A.-C. [address] [place] [phone] 07/31/2022 Appointment Laboratory Medicine Angélica Granger P.A.-C. [address] [place] [phone] 08/14/2022 Appointment Laboratory Angélica Royal P.A.-C. [address] [place] [phone] 08/28/2022 Appointment Laboratory Angélica Royal P.A.-C. [address] [place] [phone] documented as of this encounter Visit Diagnoses Diagnosis Hypertension Essential Primary - Primary documented in this encounter Additional Health Concerns Assessment Noted Time PHQ-9 Depression Total Score: 1 08/26/2017 10:50 AM CS T documented as of this encounter Care Teams Fire And Explosion Investigator Relationship Specialty Start Date End Date Elsewhere, Pcp PCP - General Family Medicine 07/29/17 documented as of this encounter
--- OUTSIDE RECORDS SUMMARY | 2022-04-13 12:37 | XMS_ITS | Encounter Summary ---
:1955 Author Organization [facility] Address [address] [place] [address] Care Team Providers Name Role Phone Elsewhere, Pcp Primary Care Provider Unavailable Reason for Visit Reason Comments Med Refill Encounter Details Date Type Department Care Team Description 12/15/2017 [facility] Ref[facility] Transplantation and Clinical 200 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 [address] [place] [address] [phone] 05/08/2022 Appointment Laboratory Medicine Angélica Granger P.A.-CDemetrius [address] [place] [phone] 05/08/2022 Clinical Admitting/Central Communication Scheduling 05/10/2022 Appointment Radiology Jeremie Rose M.D. [address] [place] [phone] 05/10/2022 Comprehensive Visit Orthopedic Surgery Warner Graves M.D. [address] [place] [address] [phone] 05/22/2022 Appointment Laboratory Medicine Angélica Granger P.A.-CDemetrius [address] [place] [phone] 06/05/2022 Appointment Laboratory Medicine Angélica Granger P.A.-CDemetrius [address] [place] [phone] 06/19/2022 Appointment Laboratory Medicine Angélica Granger P.A.-C. [address] [place] [address] [phone] 07/03/2022 Appointment Laboratory Medicine Angélica Granger P.A.-C. [address] [place] [phone] 07/17/2022 Appointment Laboratory Medicine Angélica Granger P.A.-C. [address] [place] [address] [phone] 07/31/2022 Appointment Laboratory Medicine Angélica Granger P.A.-C. [address] [place] [address] [phone] 08/14/2022 Appointment Laboratory Medicine Angélica Granger P.A.-C. [address] [place] [address] [phone] 08/28/2022 Appointment Laboratory Medicine Angélica Granger P.A.-C. [address] [place] [address] [phone] documented as of this encounter Visit Diagnoses Diagnosis Transplant Liver (HCC) - Primary documented in this encounter Additional Health Concerns Assessment Noted Time PHQ-9 Depression Total Score: 1 08/26/2017 10:50 AM CS T documented as of this encounter Care Teams Yarn Spooler Relationship Specialty Start Date End Date Elsewhere, Pcp PCP - General Family Medicine 07/29/17 documented as of this encounter
--- OUTSIDE RECORDS SUMMARY | 2022-04-13 12:37 | XMS_ITS | Encounter Summary ---
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 [address] [place] [address] [phone] 05/08/2022 Appointment Laboratory Medicine Angélica Granger P.A.-CDemetrius [address] [place] [phone] 05/08/2022 Clinical Admitting/Central Communication Scheduling 05/10/2022 Appointment Radiology Jeremie Rose M.D. [address] [place] [phone] 05/10/2022 Comprehensive Visit Orthopedic Surgery Warner Graves M.D. [address] [place] [address] [phone] 05/22/2022 Appointment Laboratory Medicine Angélica Granger P.A.-CDemetrius [address] [place] [phone] 06/05/2022 Appointment Laboratory Medicine Angélica Granger P.A.-CDemetrius [address] [place] [phone] 06/19/2022 Appointment Laboratory Medicine Angélica Granger P.A.-C. [address] [place] [address] [phone] 07/03/2022 Appointment Laboratory Medicine Angélica Granger P.A.-C. [address] [place] [phone] 07/17/2022 Appointment Laboratory Medicine Angélica Granger P.A.-C. [address] [place] [address] [phone] 07/31/2022 Appointment Laboratory Medicine Angélica Granger P.A.-C. [address] [place] [address] [phone] 08/14/2022 Appointment Laboratory Medicine Angélica Granger P.A.-C. [address] [place] [address] [phone] 08/28/2022 Appointment Laboratory Medicine Angélica Granger P.A.-C. [address] [place] [phone] documented as of this encounter Visit Diagnoses Not on filedocumented in this encounter Additional Health Concerns Assessment Noted Time PHQ-9 Depression Total Score: 1 08/26/2017 10:50 AM CS T documented as of this encounter Care Teams Inventory Worker Relationship Specialty Start Date End Date Elsewhere, Pcp PCP - General Family Medicine 07/29/17 documented as of this encounter
--- OUTSIDE RECORDS SUMMARY | 2022-04-13 12:37 | XMS_ITS | Encounter Summary ---
:1955 Author Organization [facility] Address [address] [place] [address] Care Team Providers Name Role Phone Elsewhere, Pcp Primary Care Provider Unavailable Reason for Referral Outpatient (Routine) - Closed Specialty Diagnoses / Procedures Referred By Contact Refer red To Contact Neurology Diagnoses Loss Memory Short Term Transplant Liver (HCC) Otoniel Linares M.D. [facility] [address] [place] [phone] Referral ID Status Reason Start Date Expiration Date Visits Requ ested Visits Authorized [id number] Closed 02/04/2018 02/04/2019 1 1 Encounter Details Date Type Department Care Team Description 02/04/2018 Orders Only Roshan Muniz Loss Memory Short Term (Primary Dx); [facility] A, M.S.N., T ransplant Liver (HCC) and Clinical Regeneration [place], C.C.T.C. in [facility] [address] [place] [address] [place] [phone] Social History Tobacco Use Types Packs/Day Years [...] 12/15/2021 organizations such as nondenominational groups, unions, fra[employer]Ninja or athletic groups, or school groups? 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 [address] [place] [phone] 04/25/2022 Office Visit Otorhinolaryngology Dex Matta APRN, C.N.P., M.S.N. [address] [place] [phone] 05/08/2022 Appointment Laboratory Medicine Angélica Granger P.A.-CDemetrius [address] [place] [phone] 05/08/2022 Clinical Admitting/Central Communication Scheduling 05/10/2022 Appointment Radiology Jeremie Rose M.D. [address] [place] [phone] 05/10/2022 Comprehensive Visit Orthopedic Surgery Warner Graves M.D. [address] [place] [phone] 05/22/2022 Appointment Laboratory Medicine Angélica Granger P.A.-C. [address] [place] [phone] 06/05/2022 Appointment Laboratory Medicine Angélica Granger P.A.-C. [address] [place] [phone] 06/19/2022 Appointment Laboratory Medicine Angélica Granger P.A.-C. [address] [place] [phone] 07/03/2022 Appointment Laboratory Medicine Angélica Granger P.A.-C. [address] [place] [address] [phone] 07/17/2022 Appointment Laboratory Medicine Angélica Granger P.A.-C. [address] [place] [phone] 07/31/2022 Appointment Laboratory Medicine Angélica Granger P.A.-C. [address] [place] [phone] 08/14/2022 Appointment Laboratory Medicine Angélica Granger P.A.-C. [address] [place] [phone] 08/28/2022 Appointment Laboratory Medicine Angélica Granger P.A.-C. [address] [place] [phone] Scheduled Referrals Name Type Priority Associated Diagnoses Order S jonathon Neurology - Outpatient Referral Routine Loss Memory Short Exp ected: Cognitive and Term 02/04/2018 dementia consult Transplant Liver (Approx imate), (clinic) (HCC) Expires: 02/04/2019 documented as of this encounter Results (ABNORMAL) Creatinine Clearance, Serum and 24 hour Urine (02/24/2018 11:00 AM CDT) [facility] gist Method Time Signature Creatinine 2.71 (H) 0.74 - 02/24/2018 [facility] 1.35 1:45 PM CDT LABORATORIES - mg/dL [facility] eGFR-Non 24 (L) >=60 02/24/2018 [facility] Black/ mL/min/BS 1:45 PM CDT LABORATORIES - [facility] A [facility] Comment: ----ADDITIONAL INFORMATION---- Estimated GFR calculated using the 2009 CKD_EPI creatinine equation. eGFR-Black/ 28 (L) >=60 mL/min/BSA 02/24/2018 1:45 [facility] CDT LABORATORIES [facility] Comment: ----ADDITIONAL INFORMATION---- Estimated GFR calculated using the 2009 CKD_EPI creatinine equation. Creatinine, U 29 mg/dL 02/24/2018 7:40 PM [facility] IN CDT LABORATORIES - [facility] S Time 24 h 02/24/2018 2:17 PM [facility] CDT LABORATORIES [facility] S Volume 3503 mL 02/24/2018 2:17 PM [facility] S Creatinine Clearance 23 (L) 77 - 160 02/24/2018 7:40 PM [facility] mL/min/BSA CDT LABORATORIES [facility] Specimen Anatomical Collection Method Collection Time Receive d Time (Source) Location / / Volume Laterality Blood (Urine, 24 02/24/2018 11:00 02/24/ 018 1:03 Hours) AM CDT PM CDT Narrative [facility] - 02/24/2018 7:40 PM CDT Specimen Information: Specimen ID: [id number] Specimen Type: Blood Specimen Collection Start Date: 8 12:55 PM Specimen Received Date: 02/24/2018 ??1:03 PM Specimen ID: [id number] Specimen Type: Urine Specimen Collection Start Date: 8 11:00 AM Specimen Received Date: 02/24/2018 ??2:17 PM Otoniel Linares M.D. LAB URINE ORDERABLES Performing Organization Address City/[facility]/ZIP Code Phon e Number [facility] LABORATORIES - [address] [place] [phone] [facility] (ABNORMAL) Thyroid Function [place] (02/10/2018 7:49 AM CDT) [facility] Filtec Method Time Signature TSH, Sensitive 4.6 (H) 0.3 - 4.2 02/10/2018 [facility] mIU/L 8:[address] [facility] Specimen Anatomical Collection Method Collection Time Receive d Time (Source) Location / / Volume Laterality Blood (Blood, 02/10/2018 7:49 AM 02/11/20 18 7:59 Venous) CDT AM CDT Otoniel Linares M.D. LAB BLOOD ADD-ON Performing Organization Address City/[facility]/ZIP Code Phon e Number [facility] LABORATORIES - [address] [place] [phone] [facility] (ABNORMAL) Vitamin B12 Assay (02/10/2018 7:49 AM CDT) [facility] Filtec Method Time Signature Vitamin B12 1154 (H) 180 - 914 02/10/2018 [facility] Assay, S ng/L 9:15 AM CDT [facility] Specimen Anatomical Collection Method Collection Time Receive d Time (Source) Location / / Volume Laterality Blood (Blood, 02/10/2018 7:49 AM 02/11/20 18 7:59 Venous) CDT AM CDT Otoniel Linares M.D. LAB BLOOD ADD-ON Performing Organization Address City/[facility]/ZIP Code Phon e Number [facility] - [address] documented in this encounter Visit Diagnoses Diagnosis Loss Memory Short Term - Primary Transplant Liver (HCC) documented in this encounter Additional Health Concerns Assessment Noted Time PHQ-9 Depression Total Score: 1 08/26/2017 10:50 AM CS T documented as of this encounter Care Teams Extruder Tender Relationship Specialty Start Date End Date Elsewhere, Pcp PCP - General Family Medicine 2/6/18 documented as of this encounter
--- OUTSIDE RECORDS SUMMARY | 2022-04-13 12:37 | XMS_ITS | Encounter Summary ---
:1955 Author Organization [facility] Address [address] [place] [address] Care Team Providers Name Role Phone Elsewhere, Pcp Primary Care Provider Unavailable Reason for Visit Reason Onset Date Comments Communication 02/03/2018 Encounter Details Date Type Department Care Team Description 02/03/2018 Clinical Communication Roshan Muniz [facility] Center for A, M.S.N., Transplantation and Lynn., C.C.T. C. 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 - 02/04/2018 2:26 PM CDT Reviewed with Dr. Reyes. He recommends f/u with Neurology for cognitive testing. documented in this encounter Plan of Treatment Upcoming Encounters Date Type Specialty Care Team Description 04/24/2022 Appointment Laboratory Medicine Angélica Granger, P.A.-CDemetrius [address] [place] [phone] 04/25/2022 Office Visit Otorhinolaryngology Dex Matta APRN, C.N.P., M.S.N. [address] [place] [address] [phone] 05/08/2022 Appointment Laboratory Medicine Angélica Granger P.A.-CDemetrius [address] [place] [phone] 05/08/2022 Clinical Admitting/Central Communication Scheduling 05/10/2022 Appointment Radiology Jeremie Rose M.D. [address] [place] [phone] 05/10/2022 Comprehensive Visit Orthopedic Surgery Warner Graves M.D. [address] [place] [address] [phone] 05/22/2022 Appointment Laboratory Medicine Angélica Granger P.A.-C. [address] [place] [phone] 06/05/2022 Appointment Laboratory Medicine Angélica Granger P.A.-C. [address] [place] [phone] 06/19/2022 Appointment Laboratory Medicine Angélica Granger P.A.-C. [address] [place] [phone] 07/03/2022 Appointment Laboratory Medicine Angélica Granger P.A.-C. [address] [place] [phone] 07/17/2022 Appointment Laboratory Medicine Angélica Granger P.A.-C. [address] [place] [phone] 07/31/2022 Appointment Laboratory Medicine Angélica Granger P.A.-C. [address] [place] [phone] 08/14/2022 Appointment Laboratory Medicine Angélica Granger P.A.-C. [address] [place] [phone] 08/28/2022 Appointment Laboratory Medicine Angélica Granger P.A.-C. [address] [place] [phone] documented as of this encounter Visit Diagnoses Not on filedocumented in this encounter Additional Health Concerns Assessment Noted Time PHQ-9 Depression Total Score: 1 08/26/2017 10:50 AM EUGENIO T documented as of this encounter Care Teams Laborer [employer] Relationship Specialty Start Date End Date Elsewhere, Pcp PCP - General Family Medicine 07/29/17 documented as of this encounter
--- OUTSIDE RECORDS SUMMARY | 2022-04-13 12:37 | XMS_ITS | Encounter Summary ---
:1955 Author Organization [facility] Address [address] [place] [id number] Care Team Providers Name Role Phone Elsewhere, Pcp Primary Care Provider Unavailable Encounter Details Date Type Department Care Team Description 01/19/2018 Orders Only Danita Fields nsplanharsh Liver (HCC) (Primary Dx); Center for M, M.S.N., Medication Ther apy Eyelet Row Marker Not Anticoagulant Transplantation and R.N., C.C.T. C. 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 [address] [place] [phone] 04/25/2022 Office Visit Otorhinolaryngology Dex Matta APRN, C.N.P., M.S.N. [address] [place] [address] [phone] 05/08/2022 Appointment Laboratory Medicine Angélica Granger P.A.-C. [address] [place] [address] [phone] 05/08/2022 Clinical Admitting/Central Communication Scheduling 05/10/2022 Appointment Radiology Jeremie Rose M.D. [address] [place] [phone] 05/10/2022 Comprehensive Visit Orthopedic Surgery Warner Graves M.D. [address] [place] [address] [phone] 05/22/2022 Appointment Laboratory Medicine Angélica Granger P.A.-C. [address] [place] [address] [phone] 06/05/2022 Appointment Laboratory Medicine Angélica Granger P.A.-C. [address] [place] [phone] 06/19/2022 Appointment Laboratory Medicine Angélica Granger P.A.-C. [address] [place] [phone] 07/03/2022 Appointment Laboratory Medicine Angélica Granger P.A.-C. [address] [place] [phone] 07/17/2022 Appointment Laboratory Medicine Angélica Granger P.A.-C. [address] [place] [phone] 07/31/2022 Appointment Laboratory Medicine Angélica Granger P.A.-C. [address] [place] [phone] 08/14/2022 Appointment Laboratory Medicine Angélica Granger P.A.-C. [address] [place] [address] [phone] 08/28/2022 Appointment Laboratory Medicine Angélica Granger P.A.-C. [address] [place] [phone] documented as of this encounter Results (ABNORMAL) Tacrolimus Level (02/10/2018 7:49 AM CDT) athologist Signature Tacrolimus, B 2.6 (L) 5.0-15.0 02/10/2018 [facility] (Trough) 12:[address] ng/mL [facility] [...] performa nce characteristics determined by [facility] in a manner consistent with CLIA requirements. This test has not been cleared or approved by the U.S. Mer d and Drug Administration. Specimen Anatomical Collection Method Collection Time Receive d Time (Source) Location / / Volume Laterality Blood (Blood, 02/10/2018 7:49 AM 02/11/20 18 9:57 Venous) CDT AM CDT Jaxson Reyes M.D. LAB BLOOD NON ADD-ON Performing Organization Address City/State/ZIP Code Phon e Number [facility] [address] [place], [place] [phone] [facility] (ABNORMAL) CMP (Comprehensive Metabolic Panel) (02/10/2018 7:49 AM CDT) [facility] gist Method Time Signature Potassium, S 3.6 3.6 - 5.2 02/10/2018 [facility] mmol/L 8:46 AM CDT [facility] - [facility] Sodium, S 138 135 - 145 02/10/2018 [facility] mmol/L 8:46 AM CDT [facility] - [facility] Chloride, S 98 98 - 107 02/10/2018 [facility] mmol/L 8:46 AM CDT [facility] - [facility] Bicarbonate, S 28 22 - 29 02/10/2018 [facility] mmol/L 8:46 AM CDT [facility] - [facility] Anion Gap 12 7 - 15 02/10/2018 [facility] 8:46 AM CDT [facility] - [facility] BUN (Blood 53 (H) 8 - 24 02/10/2018 [facility] Urea mg/dL 8:46 AM CDT LABORATORIES - Nitrogen), S [facility] Creatinine 2.66 (H) 0.74 - 02/10/2018 [facility] 1.35 8:46 AM CDT LABORATORIES - mg/dL [facility] eGFR-Non 24 (L) >=60 02/10/2018 [facility] Black/ mL/min/BS 8:46 AM CDT LABORATORIES - Micronesian A [facility] Comment: ----ADDITIONAL INFORMATION---- Estimated GFR calculated using the 2009 CKD_EPI creatinine equation. eGFR-Black/ 28 (L) >=60 mL/min/BSA 02/10/2018 8:46 [facility] [place]ronesian AM CDT [facility] - [facility] Comment: ----ADDITIONAL INFORMATION---- Estimated GFR calculated using the 2009 CKD_EPI creatinine equation. Calcium, Total, S 8.8 8.8 - 10.2 02/10/2018 8:46 AM [facility] mg/dL CDT [facility] - [facility] Glucose, S 118 70 - 140 mg/dL 02/10/2018 8:46 AM [facility] CDT LAB[facility]ATORIES [facility] Protein, Total, S 6.4 6.3 - 7.9 g/dL 02/10/2018 8:46 A M [facility] CDT [facility] Albumin, S 4.2 3.5 - 5.0 g/dL 02/10/2018 8:46 AM [facility] CDT LAB[facility]IES [facility] Aspartate 19 8 - 48 U/L 02/10/2018 8:46 AM [facility] C Aminotransferase (AST), S T LABO RATORIES - [facility] Alkaline Phosphatase, S 71 45 - 115 U/L 02/10/2018 8: 46 AM [facility] CDT LAB[facility]IES [facility] Alanine Aminotransferase 17 7 - 55 U/L 02/10/2018 8:4 6 AM [facility] (ALT), S T LAB[facility]IES [facility] Bilirubin, Total, S 0.4 <=1.2 mg/dL 02/10/2018 8:46 AM [facility] CDT [facility] Specimen Anatomical Collection Method Collection Time Receive d Time (Source) Location / / Volume Laterality Blood (Blood, 02/10/2018 7:49 AM 02/11/20 18 7:59 Venous) CDT AM CDT Jaxson Reyes M.D. LAB BLOOD ADD-ON Performing Organization Address City/State/ZIP Code Phon e Number [facility] - [address] [place] [phone] [facility] documented in this encounter Visit Diagnoses Diagnosis Transplant Liver (HCC) - Primary Medication Therapy Eyelet Row Marker Not Anticoa gulant documented in this encounter Additional Health Concerns Assessment Noted Time PHQ-9 Depression Total Score: 1 08/26/2017 10:50 AM CS T documented as of this encounter Care Teams Grinding Supervisor Relationship Specialty Start Date End Date Elsewhere, Pcp PCP - General Family Medicine 07/29/17 documented as of this encounter
--- OUTSIDE RECORDS SUMMARY | 2022-04-13 12:37 | XMS_ITS | Encounter Summary ---
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 [address] [place] [phone] 04/25/2022 Office Visit Otorhinolaryngology Dex Matta APRN, C.N.P., M.S.N. [address] [place] [phone] 05/08/2022 Appointment Laboratory Medicine Angélica Granger P.A.-CDemetrius [address] [place] [phone] 05/08/2022 Clinical Admitting/Central Communication Scheduling 05/10/2022 Appointment Radiology Jeremie Rose M.D. [address] [place] [phone] 05/10/2022 Comprehensive Visit Orthopedic Surgery Warner Graves M.D. [address] [place] [phone] 05/22/2022 Appointment Laboratory Medicine Angélica Granger P.A.-C. [address] [place] [phone] 06/05/2022 Appointment Laboratory Medicine Angélica Granger P.A.-C. [address] [place] [address] [phone] 06/19/2022 Appointment Laboratory Medicine Angélica Granger P.A.-C. [address] [place] [phone] 07/03/2022 Appointment Laboratory Medicine Angélica Granger P.A.-C. [address] [place] [phone] 07/17/2022 Appointment Laboratory Medicine Angélica Granger P.A.-C. [address] [place] [phone] 07/31/2022 Appointment Laboratory Medicine Angélica Granger P.A.-C. [address] [place] [address] [phone] 08/14/2022 Appointment Laboratory Medicine Angélica Granger P.A.-C. [address] [place] [phone] 08/28/2022 Appointment Laboratory Angélica Royal P.A.-C. [address] [place] [phone] documented as of this encounter Visit Diagnoses [...]
--- OUTSIDE RECORDS SUMMARY | 2022-04-13 12:37 | XMS_ITS | Encounter Summary ---
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 [address] [place] [phone] 04/25/2022 Office Visit Otorhinolaryngology Dex Matta, RAMONA, C.N.P., M.S.N. [address] [place] [address] [phone] 05/08/2022 Appointment Laboratory Medicine Angélica Granger P.A.-C. [address] [place] [address] [phone] 05/08/2022 Clinical Admitting/Central Communication Scheduling 05/10/2022 Appointment Radiology Jeremie Rose M.D. [address] [place] [phone] 05/10/2022 Comprehensive Visit Orthopedic Surgery Warner Graves M.D. [address] [place] [phone] 05/22/2022 Appointment Laboratory Medicine Angélica Granger P.A.-C. [address] [place] [address] [phone] 06/05/2022 Appointment Laboratory Medicine Angélica Granger P.A.-C. [address] [place] [address] [phone] 06/19/2022 Appointment Laboratory Medicine Angélica Granger P.A.-C. [address] [place] [phone] 07/03/2022 Appointment Laboratory Medicine Angélica Granger P.A.-C. [address] [place] [phone] 07/17/2022 Appointment Laboratory Medicine Angélica Granger P.A.-C. [address] [place] [phone] 07/31/2022 Appointment Laboratory Medicine Angélica Granger P.A.-C. [address] [place] [phone] 08/14/2022 Appointment Laboratory Angélica Royal P.A.-C. [address] [place] [phone] 08/28/2022 Appointment Laboratory Angélica Royal P.A.-C. 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
--- OUTSIDE RECORDS SUMMARY | 2022-04-13 12:38 | XMS_ITS | Encounter Summary ---
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 [address] [place] [phone] 04/25/2022 Office Visit Otorhinolaryngology Dex Matta APRN, C.N.P., M.S.N. [address] [place] [address] [phone] 05/08/2022 Appointment Laboratory Medicine Angélica Granger P.A.-C. [address] [place] [address] [phone] 05/08/2022 Clinical Admitting/Central Communication Scheduling 05/10/2022 Appointment Radiology Jeremie Rose M.D. [address] [place] [phone] 05/10/2022 Comprehensive Visit Orthopedic Surgery Warner Graves M.D. [address] [place] [address] [phone] 05/22/2022 Appointment Laboratory Medicine Angélica Granger P.A.-CDemetrius [address] [place] [address] [phone] 06/05/2022 Appointment Laboratory Medicine Angélica Granger P.A.-CDemetrius [address] [place] [address] [phone] 06/19/2022 Appointment Laboratory Medicine Angélica Granger P.A.-C. [address] [place] [phone] 07/03/2022 Appointment Laboratory Medicine Angélica Granger P.A.-C. [address] [place] [phone] 07/17/2022 Appointment Laboratory Medicine Angélica Granger P.A.-C. [address] [place] [phone] 07/31/2022 Appointment Laboratory Medicine Angélica Granger P.A.-C. [address] [place] [phone] 08/14/2022 Appointment Laboratory Medicine Angélica Granger P.A.-C. [address] [place] [phone] 08/28/2022 Appointment Laboratory Medicine Angélica Granger P.A.-C. 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
--- OUTSIDE RECORDS SUMMARY | 2022-04-13 12:38 | XMS_ITS | Encounter Summary ---
:1955 Author Organization [facility] Address [address] [place] [address] Care Team Providers Name Role Phone Unavailable Primary Care Provider Unavailable Encounter Details Date Type Department Care Team Description 11/23/2015 Hospital Encounter HX [facility] FAMILY[facility] Gail Knight M.D. 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 - 03/26/2017 10:14 AM CDT Discharge Follow Up - Risk for Readmission Discharge Follow Up - Risk for Readmission Entered On: 03/26/2017 10:28 CDT Performed On: 03/26/2017 10:14 CDT by BETTY AREVALO RN Phone Call RFR Reason for hospitalization : overnight observation following a renal artery angiogram with stenting of the left renal artery RFR Follow up attempted : First attempt RFR Follow up completed : Via telephone RFR Admission date : 03/24/2017 CDT RFR Discharge date : 03/25/2017 CDT RFR Hopsital location : [place], [place] RFR Call placed to : martina Cuello RFR Call placed to phone no : [phone] RFR Discharge diagnosis : left renal artery stenosis, status post angioplasty and stenting. RFR Have admit symptoms improved : Yes RFR Pt admit symptoms summarize : blood pressure 145/85 RFR How does pt feel they are managing : 3. No questions/concerns RFR Pt managing summarize : patient informed me that he is seeing a Dr Cole at [facility] and hasn't been here in awhile. he is following up with Rosalio garnica and will inform Dr. Cole of his procedure. He thought i was calling from [facility]. BETTY AREVALO RN - 03/26/2017 10:14 CDT Source: [facility] POWERCHART Document Id: [id number] CDT!15 documented in this encounter Medications at Time of Discharge Medication Sig Dispensed Refills Start Date End Date acetaminophen (TYLENOL) Take 1 tablet by 0 2012 500 mg tablet mouth every 6 (six) hours as needed for fever. Pain. No more than 2000 mg per day. CALCIUM CITRATE ORAL Take 2 capsules by 0 015 02/10/2018 mouth 2 (two) times a day. Maintenance cholecalciferol (VITAMIN Take 1 tablet by 0 09/0311/13/2020 D3) 2,000 Unit tablet mouth daily. cholecalciferol (VITAMIN Take 1 capsule by 0 02/2105/24/2021 D3) 50 mcg (2,000 Unit) mouth daily. capsule docosahexanoic acid/epa Take 1 capsule by 0 05/3003/26/2018 (FISH OIL ORAL) mouth daily. multivitamin tablet Take 1 tablet by 0 06/18/2013 10/12/2021 mouth daily. Maintenance documented as of this encounter Progress Notes He Knight M.D. - 11/23/2015 9:05 AM CDT Clinic Full Note CHIEF COMPLAINT/REASON FOR VISIT Multiple issues, thyroid swollen HISTORY OF PRESENT ILLNESS Pt here today with perception of palpitations and palpable thyroid over the last week. He feels well although he admits to being a little shaky (i.e. intention tremor) at times. MEDICATIONS amoxicillin 500 mg oral tablet, See Instructions, 4 tab(s) PO one hour before dental procedure, 2 refills aspirin 81 mg oral tablet, 81 mg, 1 tab(s), PO, Daily calcium citrate, PO, 2xDay CellCept 500 mg oral tablet, 1,000 mg, 2 tab(s), PO, 2xDay clonazePAM 0.5 mg oral tablet, 0.5 mg, 1 tab(s), PO, 3xDay Fish Oil, PO Flonase 50 mcg/inh nasal spray, 2 spray(s), Nasal, Daily, 11 refills lamoTRIgine 100 mg oral tablet, 100 mg, 1 tab(s), PO, 2xDay multivitamin, PO, Daily Norvasc 10 mg oral tablet, 10 mg, 1 tab(s), PO, Daily predniSONE 5 mg oral tablet, 5 mg, 1 tab(s), PO, Daily tacrolimus 0.5 mg oral capsule, 0.5 mg, 1 cap(s), PO, q12hr Vitamin D3, PO ALLERGIES ciprofloxacin citalopram erythromycin SEROquel ZyPREXA PAST MEDICAL HISTORY Chronic Bipolar I Disorder NOS Cirrhosis 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 SOCIAL HISTORY Date Time: 11/23/2015 08:25 Tobacco: Smoking Status: Never smoker Exposure: Care provider denies smoking in home, Other: no smoke Alcohol: Use: No Results Found Recreational Drugs: Use: No Results Found Type: No Results Found FAMILY HISTORY Mother:Positive: Coronary artery disease; Myocardial infarction Father:Positive: Myocardial infarction SYSTEMS REVIEW GENERAL: No weight gain, no weight loss, no fever in past month, no chills, no sweats, no fatigue. Hx of liver transplant with recent lab f/u at [facility], no changes in med indicated EENT: No blurred vision, no double vision, no eye pain, no sinus problems, no hoarseness, no difficulty swallowing, no mouth sores, no diminished hearing, no ringing in ears, no enlarged glands PULMONARY: No shortness of breath, no cough, no wheezing, no sputum, no hemoptysis CARDIAC: No valve problems, no chest pain, no chest pressure, no rapid beating, no dependent edema,no pain in calves or with walking, no difficulty moving arms and legs GI: No heartburn, no nausea, no vomiting, no stomach trouble, no constipation, no diarrhea, no blood in BMs, no change in BMs : No urethral discharge, no burning/pain with urination, no difficulty starting stream, no difficulty emptying bladder, no excessive urination MUSCULOSKELETAL: No joint pain, no joint swelling, no joint stiffness, no muscle pain, no muscle stiffness, no back pain, no back stiffness. SKIN: No skin rashes, no skin sores, no change in moles NEURO: No significant headaches, no slurred speech, no seizures, no dizziness, no loss of consciousness, no memory loss ENDOCRINE: No excessive thirst, no excessive bruising. VITAL SIGNS HR: 72 BP: 112 / 68 HT: 178 cm WT: 87 kg BMI: 27.46 PHYSICAL EXAMINATION HEAD: nc/at. PERRLA.EOMI. OP clear and unobstructed. Tongue midline with extension and lesion-free NECK: supple. No gross JVD. Thyroid is mildly palpable. Trachea midline LUNGS: clear to auscultation. No wheezes, rales or egophony. No stridor CV: regular, Normal s1 and s2. No murmur or rub. EXTR: no clubbing, cyanosis, or edema. Capillary refill at 2 seconds throughout both upper and lower extremities bilaterally NEURO: Aware and oriented x3. plush brusher II-XII grossly intact and non-focal. PSYCH: pt is euthymic. Pt shows no delusions or hallucinations. Pt denies any violent ideation. No psychomotor agitation present. Speech normal flow. Insight adequate. IMPRESSION/REPORT/PLAN Clostridium Difficile Infection Recovering, had completed oral flagyl. Ordered: OV Est Pt Level 4 - 31807 - 25 min Thyroglobulin Antibody-Harper 36603 Thyroid Stimulating Hormone Thyroperoxidase Antibody-Harper 20692 Goiter Simple Possible in ddx. Get thyroid u/s. Labs per EMR orders. Ordered: OV Est Pt Level 4 - 34075 - 25 min Insufficiency Renal NOS At baseline Ordered: OV Est Pt Level 4 - 91003 - 25 min Thyroglobulin Antibody-Harper 12457 Thyroid Stimulating Hormone Thyroperoxidase Antibody-Harper 04749 Transplant Liver (OLT) Followed at [facility] Ordered: OV Est Pt Level 4 - 04327 - 25 min Thyroglobulin Antibody-Harper 35693 Thyroid Stimulating Hormone Thyroperoxidase Antibody-Harper [id number] Orders: US Thyroid Electronically Signed By: HE KNIGHT MD On: 11/23/2015 09:22 AM Source: [employer] POWERCHART Document Id: [id number] documented in this encounter Nursing Notes He Knight M.D. - 11/23/2015 9:23 AM CDT Ambulatory Patient Education The following Patient Education Materials have been given to the patient: Patient Education Materials: General Surgery Common Thyroid Problems General Surgery Common Thyroid Problems The thyroid is a gland in the neck. It makes thyroid hormone. A hormone is a chemical messenger for the body. If there is a problem with the thyroid, the level of thyroid hormone may change. This can lead to symptoms. Read on to learn more. Hypothyroidism With this problem, your thyroid gland doesnt make enough hormone. The most common cause of hypothyroidism is Janelle thyroiditis. This occurs when the bodys immune system attacks the thyroid gland. Hypothyroidism may also occur if theres not enough iodine in the body. The thyroid needs iodine to make hormone. Problems with the pituitary gland can lead to it. If the thyroid gland is removed during surgery, hypothyroidism will result. Common Symptoms These are some of the most common symptoms: ?? Low energy, fatigue, depression ?? Feeling cold ?? Muscle pain ?? Slowed thinking ?? Constipation ?? Heavier menstrual periods with prolonged bleeding ?? Weight gain ?? Dry and brittle skin, hair, nails Hyperthyroidism With this problem, the thyroid gland produces too much hormone. The most common cause is Graves disease. This is due to the bodys immune system telling the thyroid to make too much hormone. Another cause is a nodule (small bump) in the thyroid gland. This can cause hyperthyroidism if the cells in the nodule produce more hormone than the rest of the gland. Common Symptoms These are some of the most common symptoms: ?? Shaking, nervousness, irritability ?? Feeling hot ?? A rapid, irregular heartbeat ?? Muscle weakness, fatigue ?? More frequent bowel movements ?? Marion, fuse cutter menstrual periods ?? Weight loss ?? Hair loss ?? Bulging eyes Nodules Nodules are lumps of tissue in the thyroid gland. Most often, the cause of nodules isnt known. But they may be more common in people whove had medical radiation to the head or neck. Sometimes they can be felt on the outside of the neck. Most of the time, nodules dont affect the production of thyroid hormone. They usually cause no symptoms. Most nodules are benign (noncancerous). But sometimes a nodule may be cancerous. What Is a Goiter? A goiter is the enlargement of the thyroid gland. When the gland enlarges, you maysee or feel a swelling on your neck. A goiter may develop in a person with a normally active thyroid, overactive thyroid (hyperthyroidism), or underactive thyroid (hypothyroidism). ?? 3223-3426 [facility], [address] [place] [address], [place] [address]. All rights reserved. This information is not intended as a substitute for professional medical care. Always follow your healthcare professional's instructions. This document has images extracted. Please consider using [employer] for all your patient education needs. Source: [facility] POWERCHART Document Id: [id number] He Knight M.D. - 11/23/2015 9:23 AM CDT Ambulatory Patient Education The following Patient Education Materials have been given to the patient: Patient Education Materials: General Surgery Common Thyroid Problems General Surgery Common Thyroid Problems The thyroid is a gland in the neck. It makes thyroid hormone. A hormone is a chemical messenger for the body. If there is a problem with the thyroid, the level of thyroid hormone may change. This can lead to symptoms. Read on to learn more. Hypothyroidism With this problem, your thyroid gland doesnt make enough hormone. The most common cause of hypothyroidism is Janelle thyroiditis. This occurs when the bodys immune system attacks the thyroid gland. Hypothyroidism may also occur if theres not enough iodine in the body. The thyroid needs iodine to make hormone. Problems with the pituitary gland can lead to it. If the thyroid gland is removed during surgery, hypothyroidism will result. Common Symptoms These are some of the most common symptoms: ?? Low energy, fatigue, depression ?? Feeling cold ?? Muscle pain ?? Slowed thinking ?? Constipation ?? Heavier menstrual periods with prolonged bleeding ?? Weight gain ?? Dry and brittle skin, hair, nails Hyperthyroidism With this problem, the thyroid gland produces too much hormone. The most common cause is Graves disease. This is due to the bodys immune system telling the thyroid to make too much hormone. Another cause is a nodule (small bump) in the thyroid gland. This can cause hyperthyroidism if the cells in the nodule produce more hormone than the rest of the gland. Common Symptoms These are some of the most common symptoms: ?? Shaking, nervousness, irritability ?? Feeling hot ?? A rapid, irregular heartbeat ?? Muscle weakness, fatigue ?? More frequent bowel movements ?? Marion, fuse cutter menstrual periods ?? Weight loss ?? Hair loss ?? Bulging eyes Nodules Nodules are lumps of tissue in the thyroid gland. Most often, the cause of nodules isnt known. But they may be more common in people whove had medical radiation to the head or neck. Sometimes they can be felt on the outside of the neck. Most of the time, nodules dont affect the production of thyroid hormone. They usually cause no symptoms. Most nodules are benign (noncancerous). But sometimes a nodule may be cancerous. What Is a Goiter? A goiter is the enlargement of the thyroid gland. When the gland enlarges, you maysee or feel a swelling on your neck. A goiter may develop in a person with a normally active thyroid, overactive thyroid (hyperthyroidism), or underactive thyroid (hypothyroidism). ?? 116[address] [place] [address]. All rights reserved. This information is not intended as a substitute for professional medical care. Always follow your healthcare professional's instructions. This document has images extracted. Please consider using [employer] for all your patient education needs. Source: [facility]ENTER[facility] Document Id: [id number] documented in this encounter Miscellaneous Notes Miscellaneous - Diane Smith - 08/19/2016 1:06 PM CST Quality Measures Quality Measures Entered On: 11/13/2016 13:06 CDT Performed On: 08/19/2016 13:06 CRYPTOLOGIC LINGUIST by DIANE SMITH LPN Labs Outside Lab Cholesterol : 226 mg/dL Outside Lab HDL : 49 mg/dL Outside Lab LDL : 146 mg/dL Outside Lab Triglycerides : 157 mg/dL DIANE SMITH LPN - 11/13/2016 13:06 CDT Source: [facility] [employer] Document Id: [id number] CDT!6 Miscellaneous - He Knight M.D. - 11/23/2015 9:23 AM CDT Ambulatory Patient Summary [address] [place] [id number] Visit Information Name: BRUCE CUELLO [facility] Number: [id number] Current Date: 11/23/2015 09:23:26 Physicians Attending Provider: HE KNIGHT MD Primary Care Provider: MIRTHA SANTOYO PA-C BRUCE CUELLO has been given the following list of follow-up instructions, medication list, and patient education materials: Follow-up Instructions With: Address: When: Follow up with primary care provider , only if needed Your Medications Here is a list of your medications. It is important to take your medications as directed. Use a pillbox or chart to help remind you to take your medications. Please let your doctor or nurse know if you have problems taking your medications. Medication/Strength How to Take Indications/Special Instructions/Comments/Notes for Patient Medication Changes/Routing amLODIPine (Norvasc 10 mg oral tablet) 1 Tablet(s), Oral, once a day amoxicillin (amoxicillin 500 mg oral tablet) See Instructions 4 tab(s) PO one hour before dental procedure aspirin (aspirin 81 mg oral tablet) 1 Tablet(s), Oral, once a day calcium citrate (calcium citrate) Oral, two times a day cholecalciferol (Vitamin D3) Oral clonazePAM (clonazePAM 0.5 mg oral tablet) 1 Tablet(s), Oral, three times a day fluticasone nasal (Flonase 50 mcg/inh nasal spray) 2 Van Meter(s), Nasal, once a day lamoTRIgine (lamoTRIgine 100 mg oral tablet) 1 Tablet(s), Oral, two times a day multivitamin (multivitamin) Oral, once a day mycophenolate mofetil (CellCept 500 mg oral tablet) 2 Tablet(s), Oral, two times a day omega-3 polyunsaturated fatty acids (Fish Oil) Oral predniSONE (predniSONE 5 mg oral tablet) 1 Tablet(s), Oral, once a day tacrolimus (tacrolimus 0.5 mg oral capsule) 1 cap, Oral, every 12 hours Stop Taking the Following Medications: Medication list as of 11-23-15 09:23 Attention: If you have any medications at home that are not on this list, DO NOT take them until youcontact your provider for clarification. Give a copy of your medication list to your primary care provider. Update your medication list any time medications or doses are changed and carry your medication list at all times in case of emergency. Electronically Signed By: HE KNIGHT MD Signed On:23-NOV-2015 09:23:06 Your Allergies & Intolerances Substance Reaction Symptoms Category Comments ciprofloxacin Drug erythromycin Drug citalopram Drug ZyPREXA Drug SEROquel Drug Your Problem List Problem Status Onset Comments Cirrhosis Cryptogenic Active Transplant Liver (OLT) Active Bipolar I Disorder NOS Active Insufficiency Renal NOS Active Enterocolitis due to Clostridium difficile Active 10/02/15 Added by Discern rule due to positive C-Dfficile result Your Upcoming Appointments Date Time Location Provider 11/24/2015 09:30 [facility] Ultrasound [facility] US Room 1 12/11/2015 08:45 [facility] Lab [facility] Lab Attention: Contact your local Clinic if further appointment detail needed. Common Thyroid Problems The thyroid is a gland in the neck. It makes thyroid hormone. A hormone is a chemical messenger for the body. If there is a problem with the thyroid, the level of thyroid hormone may change. This can lead to symptoms. Read on to learn more. Hypothyroidism With this problem, your thyroid gland doesnt make enough hormone. The most common cause of hypothyroidism is Janelle thyroiditis. This occurs when the bodys immune system attacks the thyroid gland. Hypothyroidism may also occur if theres not enough iodine in the body. The thyroid needs iodine to make hormone. Problems with the pituitary gland can lead to it. If the thyroid gland is removed during surgery, hypothyroidism will result. Common Symptoms These are some of the most common symptoms: ?? Low energy, fatigue, depression ?? Feeling cold ?? Muscle pain ?? Slowed thinking ?? Constipation ?? Heavier menstrual periods with prolonged bleeding ?? Weight gain ?? Dry and brittle skin, hair, nails Hyperthyroidism With this problem, the thyroid gland produces too much hormone. The most common cause is Graves disease. This is due to the bodys immune system telling the thyroid to make too much hormone. Another cause is a nodule (small bump) in the thyroid gland. This can cause hyperthyroidism if the cells in the nodule produce more hormone than the rest of the gland. Common Symptoms These are some of the most common symptoms: ?? Shaking, nervousness, irritability ?? Feeling hot ?? A rapid, irregular heartbeat ?? Muscle weakness, fatigue ?? More frequent bowel movements ?? Marion, fuse cutter menstrual periods ?? Weight loss ?? Hair loss ?? Bulging eyes Nodules Nodules are lumps of tissue in the thyroid gland. Most often, the cause of nodules isnt known. But they may be more common in people whove had medical radiation to the head or neck. Sometimes they can be felt on the outside of the neck. Most of the time, nodules dont affect the production of thyroid hormone. They usually cause no symptoms. Most nodules are benign (noncancerous). But sometimes a nodule may be cancerous. What Is a Goiter? A goiter is the enlargement of the thyroid gland. When the gland enlarges, you maysee or feel a swelling on your neck. A goiter may develop in a person with a normally active thyroid, overactive thyroid (hyperthyroidism), or underactive thyroid (hypothyroidism). ?? 1705-[address] [place] [address]. All rights reserved. This information is not intended as a substitute for professional medical care. Always follow your healthcare professional's instructions. Consider Using Patient Online Services Patient Online Services is a secure online and Mobile application that lets you: ?? View lab and test results ?? View portions of your medical record including clinical notes, immunizations and discharge summaries ?? Request an appointment or medication refill ?? Review your appointment schedule ?? Send secure messages to your care team Its easy to create an account if you dont have one. Go to [email or web address] and click on Create Your Account. Then, follow the directions to complete the online form. Youll be asked for your [facility] number which you can find at the top of this document. Your Goals/Additional instructions: This document has images extracted. Please consider using [employer] for all your patient education needs. Source: [facility] POWERCHART Document Id: [id number] Miscellaneous - He Knight M.D. - 11/23/2015 9:23 AM CDT Ambulatory Discharge Medication List [place] [address] [facility] [address] [place], [place] [id number] Visit Information Name: BRUCE CUELLO [facility] Number: [id number] Visit Date: 11/23/2015 09:23:25 Attending Provider: HE KNIGHT MD Primary Care Provider: MIRTHA SANTOYO PA-C BRUCE CUELLO has been given the following list of medications: Your Medications It is important to take your medications as directed. Use a pill box or chart to help remind you to take your medications. Please let your doctor or nurse know if you have problems taking your medications. Medication/Strength How to Take Indications/Special Instructions/Comments/Notes for Patient Medication Changes/Routing amLODIPine (Norvasc 10 mg oral tablet) 1 Tablet(s), Oral, once a day amoxicillin (amoxicillin 500 mg oral tablet) See Instructions 4 tab(s) PO one hour before dental procedure aspirin (aspirin 81 mg oral tablet) 1 Tablet(s), Oral, once a day calcium citrate (calcium citrate) Oral, two times a day cholecalciferol (Vitamin D3) Oral clonazePAM (clonazePAM 0.5 mg oral tablet) 1 Tablet(s), Oral, three times a day fluticasone nasal (Flonase 50 mcg/inh nasal spray) 2 Van Meter(s), Nasal, once a day lamoTRIgine (lamoTRIgine 100 mg oral tablet) 1 Tablet(s), Oral, two times a day multivitamin (multivitamin) Oral, once a day mycophenolate mofetil (CellCept 500 mg oral tablet) 2 Tablet(s), Oral, two times a day omega-3 polyunsaturated fatty acids (Fish Oil) Oral predniSONE (predniSONE 5 mg oral tablet) 1 Tablet(s), Oral, once a day tacrolimus (tacrolimus 0.5 mg oral capsule) 1 cap, Oral, every 12 hours Stop Taking the Following Medications: Medication list as of 11-23-15 09:23 Attention: If you have any medications at home that are not on this list, DO NOT take them until youcontact your provider for clarification. Give a copy of your medication list to your primary care provider. Update your medication list any time medications or doses are changed and carry your medication list at all times in case of emergency. 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 Intake/History Entered On: 11/23/2015 8:27 CDT Performed On: 11/23/2015 8:25 CDT by SHA SUTTON [facility] Intake Chief Complaint : Multiple issues, thyroid swollen Peripheral Pulse Rate : 72 /min Heart Rhythm : Regular Systolic Blood Pressure : 112 mmHg Diastolic Blood Pressure : 68 mmHg NIBP Mean : 83 mmHg BP Location : Right upper extremity Blood Pressure Cuff Size : Regular Height : 178 cm(Converted to: 5 ft 10 inch(es), 70 inch(es)) Actual Weight : 87 kg(Converted to: 191 lb 13 oz) Weight Source : Standing scale Dosing Weight Clinic : 87 kg Clinic BSA : 2.07 Body Mass Index : 27.46 kg/m2 SHA SUTTON [facility] - 11/23/2015 8:25 CDT General Info Information Given By : Patient Preferred Communication Mode : Verbal Languages : Georgian Is Patient Female and 13-50 no hysterectomy : SHA Urrutia [facility] - 11/23/2015 8:25 CDT Subjective Pain Symptoms : SHA Urrutia [facility] - 11/23/2015 8:25 CDT Dependent Habits Exposure to Tobacco Smoke : Care provider denies smoking in home, Other: no smoke Smoking Status : Never smoker Tobacco 2A : No Tobacco Use/Currently Using : No Tobacco Use/Last 30 Days : No Tobacco Use/Last 12 months : [facility] - 11/23/2015 8:25 CDT Source: [facility] POWERCHART Document Id: [id number] documented in this encounter Plan of Treatment Upcoming Encounters Date Type Specialty Care Team Description 04/24/2022 Appointment Laboratory Medicine Angélica Granger P.A.-C. [address] [place] [phone] 04/25/2022 Office Visit Otorhinolaryngology Dex Matta APRN C.N.P., M.S.N. [address] [place] [phone] 05/08/2022 Appointment Laboratory Medicine Angélica Granger P.A.-C. [address] [place] [phone] 05/08/2022 Clinical Admitting/Central Communication Scheduling 05/10/2022 Appointment Radiology Jeremie Rose M.D. [address] [place] [address] [phone] 05/10/2022 Comprehensive Visit Orthopedic Surgery Warner Graves M.D. [address] [place] [address] [phone] 05/22/2022 Appointment Laboratory Medicine Angélica Granger P.A.-C. [address] [place] [address] [phone] 06/05/2022 Appointment Laboratory Medicine Angélica Granger P.A.-C. [address] [place] [phone] 06/19/2022 Appointment Laboratory Medicine Angélica Granger P.A.-C. [address] [place] [phone] 07/03/2022 Appointment Laboratory Medicine Angélica Granger P.A.-C. [address] [place] [phone] 07/17/2022 Appointment Laboratory Medicine Angélica Granger P.A.-C. [address] [place] [phone] 07/31/2022 Appointment Laboratory Medicine Angélica Granger P.A.-C. [address] [place] [phone] 08/14/2022 Appointment Laboratory Medicine Angélica Granger P.A.-C. [address] [place] [phone] 08/28/2022 Appointment Laboratory Medicine Angélica Granger P.A.-C. [address] [place] [phone] documented as of this encounter Procedures Procedure Name Priority Date/Time Associated Comments Diagnosis THYROPEROXIDASE (TPO) Routine 11/23/2015 9:16 Res ults for this ABS, S AM CDT procedure are i n the results section. THYROGLOBULIN AB, S Routine 11/23/2015 9:16 Resul ts for this AM CDT procedure are i n the results section. THYROID-STIMULATING Routine 11/23/2015 9:16 Resul ts for this HORMONE-SENSITIVE AM CDT procedure are in (S-TSH) the results section. documented in this encounter Results Thyroperoxidase (TPO) Antibodies (11/23/2015 9:16 AM CDT) Patholo gist Method Time Signature Thyroperoxidase Ab, 0.3 <9.0 POWERCHART S INTUML Comment: Test Performed by: [facility] [address] [place] [id number] Senior Android Developer: Curt Akers II, M.D., Ph.D. Specimen (Source) Anatomical Collection Method Collection Time Re ceived Time Location / / Volume Laterality Blood 11/23/2015 9:16 AM CDT He Knight M.D. LAB BLOOD ADD-ON Performing Organization Address City/[facility]/ZIP Code Phon e Number POWERCHART Thyroglobulin Antibody (11/23/2015 9:16 AM CDT) Patholo gist Method Time Signature Thyroglobulin <1.8 <4.0 INTUML POWERCHART Antibody, S Comment: ADDITIONAL INFORMATIO N The thyroglobulin antibody testing metho d is an immunoenzymatic assay manufactured by [employer]. and performed on the [employer] DXI 800. Values obtained from different assay met hods or kits may be different and cannot be used inte rchangeably. The results cannot be interpreted as abs olute evidence for the presence or absence of malignant disease. Test Performed by: [place] [address] Senior Android Developer: Curt Akers II, M.D., Ph.D. Specimen (Source) Anatomical Collection Method Collection Time Re ceived Time Location / / Volume Laterality Blood 11/23/2015 9:16 AM CDT He Knight M.D. LAB BLOOD NON ADD-ON Performing Organization Address [facility] Phon e Number POWERCHART (ABNORMAL) Thyroid-Stimulating Hormone-Sensitive (s-TSH) (11/23/2015 9:16 AM CDT) P athologist Signature TSH 4.71 (H) 0.27 - POWERCHART (Thyrotropin) 4.20 MIUL Specimen (Source) Anatomical Collection Method Collection Time Re ceived Time Location / / Volume Laterality Blood 11/23/2015 9:16 AM CDT He Knight M.D. LAB BLOOD ADD-ON Performing Organization Address City/[facility] Code Phon e Number POWERCHART documented in this encounter Visit Diagnoses Not on filedocumented in this encounter Additional Health Concerns Assessment Noted Time PHQ-9 Depression Total Score: 3 05/30/2015 10:21 AM CS T documented as of this encounter
--- OUTSIDE RECORDS SUMMARY | 2022-04-13 12:38 | XMS_ITS | Encounter Summary ---
:1955 Author Organization [facility] Address [address] [place] [address] Care Team Providers Name Role Phone Elsewhere, Pcp Primary Care Provider Unavailable Reason for Referral Appointment Request (Routine) - Closed Specialty Diagnoses / Procedures Referred By Contact Refer red To Contact Nephrology and Hypertension Referral ID Status Reason Start Date Expiration Date Visits Requ ested Visits Authorized [id number] Closed 10/21/2017 04/19/2018 1 Appointment Request (Routine) - Closed Specialty Diagnoses / Procedures Referred By Contact Refer red To Contact Nephrology and Hypertension Referral ID Status Reason Start Date Expiration Date Visits Requ ested Visits Authorized [id number] Closed 10/21/2017 04/19/2018 1 Appointment Request (Routine) - Closed Specialty Diagnoses / Procedures Referred By Contact Refer red To Contact Nephrology and Hypertension Referral ID Status Reason Start Date Expiration Date Visits Requ ested Visits Authorized [id number] Closed 10/21/2017 04/19/2018 1 Appointment Request (Routine) - Closed Specialty Diagnoses / Procedures Referred By Contact Refer red To Contact Nephrology and Hypertension Referral ID Status Reason Start Date Expiration Date Visits Requ ested Visits Authorized [id number] Closed 10/21/2017 04/19/2018 1 Outpatient (Routine) - Closed Specialty Diagnoses / Procedures Referred By Contact Refer red To Contact Nephrology and Diagnoses Hypertension Essential Primary Mercedez Coker [facility] Hypertension M.Louie [address] [place] [address] Referral ID Status Reason Start Date Expiration Date Visits Requ ested Visits Authorized [id number] Closed 10/21/2017 04/19/2018 1 1 Appointment Request (Routine) - Closed Specialty Diagnoses / Procedures Referred By Contact Refer red To Contact Nephrology and Hypertension Referral ID Status Reason Start Date Expiration Date Visits Requ ested Visits Authorized [id number] Closed 10/21/2017 04/19/2018 1 Appointment Request (Routine) - Closed Specialty Diagnoses / Procedures Referred By Contact Refer mindy To Contact Nephrology and Hypertension Referral ID Status Reason Start Date Expiration Date Visits Requ ested Visits Authorized [id number] Closed 10/21/2017 04/19/2018 1 Outpatient (Routine) - Closed Specialty Diagnoses / Procedures Referred By Contact Refer mindy To Contact Transplant Truong Connor M.D . [address] [address] Referral ID Status Reason Start Date Expiration Date Visits Requ ested Visits Authorized [id number] Closed 10/10/2017 04/08/2018 1 1 Outpatient (Routine) - Closed Specialty Diagnoses / Procedures Referred By Contact Refer red To Contact Hyperbaric Medicine Diagnoses Chronic Kidney Disease Stage 4 Glomerular Filtration Rate 15-29 ([facility]) Mercedez Coker [place] [facility] [address] [place] [address] Referral ID Status Reason Start Date Expiration Date Visits Requ ested Visits Authorized [id number] Closed 10/10/2017 04/08/2018 1 1 Encounter Details Date Type Department Care Team Description 10/02/2017 Orders Only Department of Cheryl Torres Renal Artery (HCC); Vascular Medicine in [place] Stern Chronic Kidney Disease; [place], [place] [address] [facility] Transplant Liver (HCC); [address] [place], [place] Chronic Kidney Disease Stage 4 Glomerular Filtration Rate 15-29 (HCC); [place] [address] Hypertension Essential Primary [id number] Social History Tobacco Use Types Packs/Day Years [...] at Date Recorded Male 05/16/2020 4:27 PM [employer] documented as 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 [address] [place] [phone] 04/25/2022 Office Visit Otorhinolaryngology Dex Matta APRN, C.N.P., M.S.N. [address] [place] [phone] 05/08/2022 Appointment Laboratory Medicine Angélica Granger P.A.-C. [address] [place] [phone] 05/08/2022 Clinical Admitting/Central Communication Scheduling 05/10/2022 Appointment Radiology Jeremie Rose M.D. [address] [place] [phone] 05/10/2022 Comprehensive Visit Orthopedic Surgery Warner Graves M.D. [address] [place] [phone] 05/22/2022 Appointment Laboratory Medicine Angélica Granger P.A.-C. [address] [place] [phone] 06/05/2022 Appointment Laboratory Medicine Angélica Granger P.A.-C. [address] [place] [phone] 06/19/2022 Appointment Laboratory Medicine Angélica Granger P.A.-C. [address] [place] [phone] 07/03/2022 Appointment Laboratory Medicine Angélica Granger P.A.-C. [address] [place] [phone] 07/17/2022 Appointment Laboratory Medicine Angélica Granger P.A.-C. [address] [place] [phone] 07/31/2022 Appointment Laboratory Medicine Angélica Granger P.A.-C. [address] [place] [phone] 08/14/2022 Appointment Laboratory Medicine Angélica Granger P.A.-C. [address] [place] [phone] 08/28/2022 Appointment Laboratory Medicine Angélica Granger P.A.-C. [address] [place] [phone] Scheduled Referrals Name Type Priority Associated Diagnoses [facility] and Outpatient Referral Routine Chronic Kidney Expe cted: Hypertension office Disease Stage 4 02/21 visit (clinic) Glomerular (Approximate) , Filtration Rate Expires: (HCC) 10/10/2020 Transplant Composite Outpatient Referral Routine Expected: office visit (clinic) 2018 (Approximate), Expires: 10/10/2020 Nephrology nurse Outpatient Referral Routine Hypertension Expe cted: visit (clinic) Essential Primary 10/22/19 18 (Approximate), Expires: 10/21/2020 documented as of this encounter Results US Kidneys with Renal [...] the left kidney. Cheryl HEREDIA US PROCEDURES (ABNORMAL) Urinalysis with Microscopic (02/10/2018 8:43 AM CDT) [facility] Method Time Signature Source Midstream 02/10/2018 [facility] 8:43 AM [employer] [facility] Appearance Normal Normal 02/10/2018 [facility] 9:17 AM [employer] [facility] Osmolality, U 363 150 - 1150 02/10/2018 [facility] mOsm/kg 9:42 AM [facility] pH, U 6.8 4.5 - 8.0 02/10/2018 [facility] 9:42 AM [facility] Comment: ----ADDITIONAL INFORMATION---- This test was developed and its performa nce characteristics determined by [facility] in a manner co nsistent with CLIA requirements. This test has not bee n cleared or approved by the U.S. Food and Drug Admin istration. Glucose 3 0 - 15 mg/dL 02/10/2018 9:17 AM T [facility] Protein, U 57 (H) <26 mg/dL 02/10/2018 9:17 AM T [facility] Comment: ----ADDITIONAL INFORMATION---- On 12/17/2016 the total protein assay me thod changed resulting in approximately a 15% increase in prote in values. Protein/Osmolality 1.57 (H) <0.42 Ratio 02/10/2018 9:42 AM [facility] Comment: ----ADDITIONAL INFORMATION---- On 12/17/2016 the total protein assay me thod changed resulting in approximately a 15% increase in prote in values. Predicted 24 Hr 1448 mg/24 h 02/10/2018 9:42 AM [facility] Protein [facility] Predicted Range 459-4561 mg/24 h 02/10/2018 9:42 AM [facility] Hemoglobin, QL Small (A) Negative 02/10/2018 11:29 AM [facility] Specimen Anatomical Collection Method Collection Time Receive d Time (Source) Location / / Volume Laterality Urine 02/10/2018 8:43 AM 8 9:17 CDT AM CDT Mercedez Coker M.D. LAB URINE ORDERABLES Performing Organization Address City/State/ZIP Code Phon e Number [facility] - [address] [place] [address] 05 [facility] (ABNORMAL) Microalbumin, Random, Urine (02/10/2018 8:43 AM CDT) P athologist Signature Microalbumin 453.2 mg/L 02/10/2018 [facility] 9:33 AM CDT [facility] Comment: ----ADDITIONAL INFORMATION---- This test has been modified from the man ufacturer's instructions. Its performance characteri stics were determined by [facility] in a manner co nsistent with CLIA requirements. This test has not bee n cleared or approved by the U.S. Food and Drug Admin istration. Creatinine 59 mg/dL 02/10/2018 9:17 AM [facility] CDT LABORATORIES [facility] Albumin/Creatinine 768 (H) <17 mg/g 02/10/2018 9:33 AM [facility] CDT [facility] Specimen Anatomical Collection Method Collection Time Receive d Time (Source) Location / / Volume Laterality Urine 02/10/2018 8:43 AM 8 9:17 CDT AM CDT Mercedez Coker M.D. LAB URINE ORDERABLES Performing Organization Address [facility] Phon e Number [facility] - [address] Sodium (02/10/2018 7:49 AM CDT) P athologist Signature Sodium, S CANCELED 135 - 145 02/11/2018 [facility] mmol/L 9:44 AM CDT [facility] Comment: REVISED RESULTS ----PREVIOUSLY REPORTED ---- 139, Flagged as: Normal (Reported 02/10/2018 08:35) Specimen Anatomical Collection Method Collection Time Receive d Time (Source) Location / / Volume Laterality Blood 02/10/2018 7:49 AM 8 8:00 CDT AM CDT Narrative [facility] - 02/11/2018 9:44 AM CDT Sodium, S was cancelled on 02/11/2018 at 09:44; Duplicate test request. Mercedez Coker M.D. LAB BLOOD ADD-ON Performing Organization Address City/[facility]/ZIP Code Phon e Number [facility] - [address] BUN (Blood Urea Nitrogen) (02/10/2018 7:49 AM CDT) Patholo gist Method Time Signature BUN (Blood CANCELED 8 - 24 02/11/2018 [facility] Urea mg/dL 9:44 AM CDT LABORATORIES - Nitrogen), S [facility] Comment: REVISED RESULTS ----PREVIOUSLY REPORTED ---- 55, Flagged as: Abnormal_High (Reported 02/10/2018 08:35) Specimen Anatomical Collection Method Collection Time Receive d Time (Source) Location / / Volume Laterality Blood 02/10/2018 7:49 AM 8 8:00 CDT AM CDT Narrative [facility] - 02/11/2018 9:44 AM CDT Bld Urea Nitrog(BUN), S was cancelled on 02/11/2018 at 09:44; Duplicate test request. Mercedez Coker M.D. LAB BLOOD ADD-ON Performing Organization Address City/[facility] Code Phon e Number [facility] LABORATORIES - [address] [place] [address] 05 [facility] Chloride (02/10/2018 7:49 AM CDT) Analysis Performed At Patho logist Time Signature Chloride, S CANCELED 98 - 107 02/11/2018 [facility] mmol/L 9:44 AM CDT LABORATORIES [facility] Comment: REVISED RESULTS ----PREVIOUSLY REPORTED ---- 98, Flagged as: Normal (Reported 02/10/2018 08:35) Specimen Anatomical Collection Method Collection Time Receive d Time (Source) Location / / Volume Laterality Blood 02/10/2018 7:49 AM 8 8:00 CDT AM CDT Narrative [facility] - 02/11/2018 9:44 AM CDT Chloride, S was cancelled on 02/11/2018 at 09:44; Duplicate test request. Mercedez Coker M.D. LAB BLOOD ADD-ON Performing Organization Address City/[facility] Code Phon e Number [facility]ORATORIES - [address] [place] [address] 05 [facility] Bicarbonate (02/10/2018 7:49 AM CDT) Patholo gist Method Time Signature Bicarbonate, S CANCELED - 29 02/11/2018 [facility] mmol/L 9:44 AM CDT LABORATORIES [facility] Comment: REVISED RESULTS ----PREVIOUSLY REPORTED ---- 28, Flagged as: Normal (Reported 02/10/2018 08:35) Specimen Anatomical Collection Method Collection Time Receive d Time (Source) Location / / Volume Laterality Blood 02/10/2018 7:49 AM 8 8:00 CDT AM CDT Narrative [facility] - 02/11/2018 9:44 AM CDT Bicarbonate, S was cancelled on 02/12/20 18 at 09:44; Duplicate test request. Mercedez Coker M.D. LAB BLOOD ADD-ON Performing Organization Address [facility] Phon e Number [facility] - [address] [place] [address] 05 [facility] Potassium (02/10/2018 7:49 AM CDT) Patholo gist Method Time Signature Potassium, S CANCELED 3.6 - 5.2 02/11/2018 [facility] mmol/L 9:44 AM CDT [facility] Comment: REVISED RESULTS ----PREVIOUSLY REPORTED ---- 3.7, Flagged as: Normal (Reported 02/10/2018 08:35) Specimen Anatomical Collection Method Collection Time Receive d Time (Source) Location / / Volume Laterality Blood 02/10/2018 7:49 AM 8 8:00 CDT AM CDT Narrative [facility] - 02/11/2018 9:44 AM CDT Potassium, S was cancelled on 02/11/2018 at 09:44; Duplicate test request. Mercedez Coker M.D. LAB BLOOD ADD-ON Performing Organization Address [facility] Phon e Number [facility]IES - [address] [place] [address] 05 [facility] Creatinine with Estimated GFR (02/10/2018 7:49 AM CDT) P athologist Signature Creatinine CANCELED 0.74 - 02/11/2018 [facility] 1.35 mg/dL 9:44 AM CDT [facility] Comment: REVISED RESULTS ----PREVIOUSLY REPORTED ---- 2.58, Flagged as: Abnormal_High (Reported 02/10/2018 08:35) eGFR-Non CANCELED >=60 mL/min/BSA 02/11/2018 9:44 [facility]/ AM CDT LABORATORIES - [facility] Comment: REVISED RESULTS ----ADDITIONAL INFORMATION---- Estimated GFR calculated using the 2009 CKD_EPI creatinine equation. ----PREVIOUSLY REPORTED ---- 25, Flagged as: Abnormal_Low (Reported 02/10/2018 08:35) eGFR-Black/ CANCELED >=60 mL/min/BSA 02/11/2018 9:44 [facility] AM CDT LABORATORIES - [facility] Comment: REVISED RESULTS ----ADDITIONAL INFORMATION---- Estimated GFR calculated using the 2009 CKD_EPI creatinine equation. ----PREVIOUSLY REPORTED ---- 29, Flagged as: Abnormal_Low (Reported 02/10/2018 08:35) Specimen Anatomical Collection Method Collection Time Receive d Time (Source) Location / / Volume Laterality Blood 02/10/2018 7:49 AM 8 8:00 CDT AM CDT Narrative [facility] - 02/11/2018 9:44 AM CDT Creatinine with eGFR, S was cancelled on 02/11/2018 at 09:44; Duplicate test request. Mercedez Coker M.D. LAB BLOOD ADD-ON Performing Organization Address City/State/ZIP Code Phon e Number [facility] - [address] [place] [address] 05 [facility] 25-Hydroxyvitamin D2 and D3 (02/10/2018 7:49 AM CDT) P athologist Signature 25-Hydroxy D2 <4.0 ng/mL 02/11/2018 [facility] 3:27 AM CDT [facility] 25-Hydroxy D3 56 ng/mL 02/11/2018 [facility] 3:27 AM CDT [facility] 25-Hydroxy D 56 ng/mL 02/11/2018 [facility] Total 3:27 AM CDT [facility] Comment: Interpretation: 51-80 ng/mL (increased r isk of hypercalciuria) ----REFERENCE VALUE---- 25-HYDROXY D TOTAL (D2+D3) Optimum level s in the healthy population are 20-50, patients with bone disease may benefit from higher levels within this r itzel. ----ADDITIONAL INFORMATION---- This test was developed and its performa nce characteristics determined by [facility] in a manner consistent with CLIA requirements. This test has not been cleared or approved by the U.S. Mer d and Drug Administration. Specimen Anatomical Collection Method Collection Time Receive d Time (Source) Location / / Volume Laterality Blood 02/10/2018 7:49 AM 8 CDT 10:24 AM CDT Mercedez Coker M.D. LAB BLOOD ADD-ON Performing Organization Address City/[facility]/ZIP Code Phon e Number [facility] [address] [place] [address] [facility] (ABNORMAL) Cystatin C with Estimated GFR (02/10/2018 7:49 AM CDT) athologist Signature eGFR by 18 >60 02/10/2018 [facility] Cystatin C mL/min/BSA 9:49 AM CDT [facility] Comment: ----ADDITIONAL INFORMATION---- Cystatin C-based eGFR may differ substan tially from creatinine-based eGFR in patients with a bnormal muscle mass or acutely changing renal function. ??Pl ease interpret together with relevant clinical features. Cystatin C, S 3.04 (H) 0.77 - 1.42 02/10/2018 9:49 AM [facility] mg/L CDT [facility] Specimen Anatomical Collection Method Collection Time Receive d Time (Source) Location / / Volume Laterality Blood 02/10/2018 7:49 AM 8 9:26 CDT AM CDT Mercedez Coker M.D. LAB BLOOD ADD-ON Performing Organization Address City/[facility]/ZIP Code Phon e Number [facility] - [address] [place] [address] 05 [facility] Sodium (02/10/2018 7:49 AM CDT) athologist Signature Sodium, S CANCELED 135 - 145 02/11/2018 [facility] mmol/L 9:39 AM CDT [facility] Comment: REVISED RESULTS ----PREVIOUSLY REPORTED ---- 139, Flagged as: Normal (Reported 02/10/2018 09:04) Specimen Anatomical Collection Method Collection Time Receive d Time (Source) Location / / Volume Laterality Blood 02/10/2018 7:49 AM 8 8:00 CDT AM CDT Narrative [facility] - 02/11/2018 9:39 AM CDT Sodium, S was cancelled on 02/11/2018 at 09:39; Duplicate test request. Mercedez Coker M.D. LAB BLOOD ADD-ON Performing Organization Address City/[facility]/ZIP Code Phon e Number [facility] - [address] [place] [address] 05 [facility] Potassium (02/10/2018 7:49 AM CDT) Patholo gist Method Time Signature Potassium, S CANCELED 3.6 - 5.2 02/11/2018 [facility] mmol/L 9:39 AM CDT [facility] Comment: REVISED RESULTS ----PREVIOUSLY REPORTED ---- 3.7, Flagged as: Normal (Reported 02/10/2018 09:04) Specimen Anatomical Collection Method Collection Time Receive d Time (Source) Location / / Volume Laterality Blood 02/10/2018 7:49 AM 8 8:00 CDT AM CDT Narrative [facility] - 02/11/2018 9:39 AM CDT Potassium, S was cancelled on 02/11/2018 at 09:39; Duplicate test request. Mercedez Coker M.D. LAB BLOOD ADD-ON Performing Organization Address City/[facility]/ZIP Code Phon e Number [facility]IES - [address] Phosphorus Inorganic (02/10/2018 7:49 AM CDT) Analysis Performed At Path logist Time Signature Phosphorus 4.0 2.5 - 4.5 02/10/2018 [facility] (Inorganic), S mg/dL 9:04 AM CDT [facility] Specimen Anatomical Collection Method Collection Time Receive d Time (Source) Location / / Volume Laterality Blood 02/10/2018 7:49 AM 8 8:00 CDT AM CDT Mercedez Coker M.D. LAB BLOOD ADD-ON Performing Organization Address City/[facility]/ZIP [facility] Phon e Number [facility] - [address] [place] [address] 05 [facility] (ABNORMAL) Glucose, Fasting (02/10/2018 7:49 AM CDT) P athologist Signature Glucose, P 110 (H) 70 - 100 02/10/2018 [facility] mg/dL 8:49 AM T [facility] Last Intake 12 hr 02/10/2018 [facility] 8:00 AM T [facility] Specimen Anatomical Collection Method Collection Time Receive d Time (Source) Location / / Volume Laterality Blood 02/10/2018 7:49 AM 8 8:00 CDT AM CDT Mercedez Coker M.D. LAB BLOOD NON ADD-ON Performing Organization Address City/State/ZIP Code Phon e Number [facility] - [address] [place], [place] [address] [facility] Creatinine with Estimated GFR (MDRD) (02/10/2018 7:49 AM CDT) P athologist Signature Creatinine CANCELED 0.74 - 02/11/2018 [facility] 1.35 mg/dL 9:39 AM T [facility] Comment: REVISED RESULTS ----PREVIOUSLY REPORTED ---- 2.61, Flagged as: Abnormal_High (Reported 02/10/2018 09:04) eGFR-Non CANCELED >=60 mL/min/BSA 02/11/2018 9:39 [facility] Comment: REVISED RESULTS ----ADDITIONAL INFORMATION---- Estimated GFR calculated using the 2009 CKD_EPI creatinine equation. ----PREVIOUSLY REPORTED ---- 25, Flagged as: Abnormal_Low (Reported 02/10/2018 09:04) eGFR-Black/ CANCELED >=60 mL/min/BSA 02/11/2018 9:39 [facility] Comment: REVISED RESULTS ----ADDITIONAL INFORMATION---- Estimated GFR calculated using the 2009 CKD_EPI creatinine equation. ----PREVIOUSLY REPORTED ---- 29, Flagged as: Abnormal_Low (Reported 02/10/2018 09:04) Specimen Anatomical Collection Method Collection Time Receive d Time (Source) Location / / Volume Laterality Blood 02/10/2018 7:49 AM 8 8:00 CDT AM CDT Narrative [facility] - 02/11/2018 9:39 AM CDT Creatinine with eGFR, S was cancelled on 02/11/2018 at 09:39; Duplicate test request. Mercedez Coker M.D. LAB BLOOD ADD-ON Performing Organization Address [facility] Phon e Number [facility] - [address] [place] [address] 05 [facility] Chloride (02/10/2018 7:49 AM CDT) Analysis Performed At Patho logist Time Signature Chloride, S CANCELED 98 - 107 02/11/2018 [facility] mmol/L 9:39 AM CDT [facility] Comment: REVISED RESULTS ----PREVIOUSLY REPORTED ---- 98, Flagged as: Normal (Reported 02/10/2018 09:04) Specimen Anatomical Collection Method Collection Time Receive d Time (Source) Location / / Volume Laterality Blood 02/10/2018 7:49 AM 8 8:00 CDT AM CDT Narrative [facility] - 02/11/2018 9:39 AM CDT Chloride, S was cancelled on 02/11/2018 at 09:39; Duplicate test request. Mercedez Coker M.D. LAB BLOOD ADD-ON Performing Organization Address [facility] Phon e Number [facility] - [address] CBC without Differential (02/10/2018 7:49 AM CDT) P athologist Signature Hemoglobin CANCELED 13.2 - 02/11/2018 [facility] 16.6 g/dL 9:39 AM CDT [facility] Comment: REVISED RESULTS ----PREVIOUSLY REPORTED ---- 11.9, Flagged as: Abnormal_Low (Reported 02/10/2018 08:14) Hematocrit CANCELED 38.3 - 48.6 % 02/11/2018 9:39 AM CDT [facility] Comment: REVISED RESULTS ----PREVIOUSLY REPORTED ---- 35.4, Flagged as: Abnormal_Low (Reported 02/10/2018 08:14) Erythrocytes CANCELED 4.35 - 5.65 02/11/2018 9:39 AM [place] [facility] x10(12)/L CDT [facility] Comment: REVISED RESULTS ----PREVIOUSLY REPORTED ---- 3.81, Flagged as: Abnormal_Low (Reported 02/10/2018 08:14) MCV CANCELED 78.2 - 97.9 fL 02/11/2018 9:39 AM CDT [facility] S Comment: REVISED RESULTS ----PREVIOUSLY REPORTED ---- 92.9, Flagged as: Normal (Reported 02/10/2018 08:14) RBC Distrib Width CANCELED 11.8 - 14.5 % 02/11/2018 9:39 AM [facility] CDT [facility] Comment: REVISED RESULTS ----PREVIOUSLY REPORTED ---- 12.6, Flagged as: Normal (Reported 02/10/2018 08:14) Platelet Count CANCELED 135 - 317 02/11/2018 9:[address] [facility] x10(9)/L CDT [facility] [facility] Comment: REVISED RESULTS ----PREVIOUSLY REPORTED ---- 177, Flagged as: Normal (Reported 02/10/2018 08:14) Leukocytes CANCELED 3.4 - 9.6 x10(9)/L 02/11/2018 9:39 AM [facility] CDT [facility] Comment: REVISED RESULTS ----PREVIOUSLY REPORTED ---- 3.7, Flagged as: Normal (Reported 02/10/2018 08:14) Specimen Anatomical Collection Method Collection Time Receive d Time (Source) Location / / Volume Laterality Blood 02/10/2018 7:49 AM 8 8:00 CDT AM CDT Narrative [facility] - 02/11/2018 9:39 AM CDT CBC without Differential was cancelled on 02/11/2018 at 09:39; Duplicate test request. Mercedez Coker M.D. LAB BLOOD ADD-ON Performing Organization Address City/State/ZIP Code Phon e Number [facility] - [address] [place], [place] [address] [facility] Calcium, Total (02/10/2018 7:49 AM CDT) [facility] Method Time Signature Calcium, CANCELED 8.8 - 02/11/2018 [facility] Total, S 10.2 9:39 AM CDT LABORATORIES - mg/dL [facility] Comment: REVISED RESULTS ----PREVIOUSLY REPORTED ---- 8.8, Flagged as: Normal (Reported 02/10/2018 09:04) Specimen Anatomical Collection Method Collection Time Receive d Time (Source) Location / / Volume Laterality Blood 02/10/2018 7:49 AM 8 8:00 CDT AM CDT Narrative [facility] - 02/11/2018 9:39 AM CDT Calcium, Total, S was cancelled on 02/11/2018 at 09:39; Duplicate test request. Mercedez Coker M.D. LAB BLOOD ADD-ON Performing Organization Address [facility] Phon e Number [facility] - [address] [place] [address] [facility] BUN (Blood Urea Nitrogen) (02/10/2018 7:49 AM CDT) [facility] Method Time Signature BUN (Blood CANCELED 02/11/2018 [facility] Urea mg/dL 9:39 AM CDT LABORATORIES - Nitrogen), S [facility] Comment: REVISED RESULTS ----PREVIOUSLY REPORTED ---- 55, Flagged as: Abnormal_High (Reported 02/10/2018 09:04) Specimen Anatomical Collection Method Collection Time Receive d Time (Source) Location / / Volume Laterality Blood 02/10/2018 7:49 AM 8 8:00 CDT AM CDT Narrative [facility] - 02/11/2018 9:39 AM CDT Bld Urea Nitrog(BUN), S was cancelled on 02/11/2018 at 09:39; Duplicate test request. Mercedez Coker M.D. LAB BLOOD ADD-ON Performing Organization Address City/[facility] Phon e Number [facility] - [address] [place] [address] [facility] Bicarbonate (02/10/2018 7:49 AM CDT) [facility] Method Time Signature Bicarbonate, S CANCELED 02/11/2018 [facility] mmol/L 9:39 AM CDT [facility] Comment: REVISED RESULTS ----PREVIOUSLY REPORTED ---- 25, Flagged as: Normal (Reported 02/10/2018 09:04) Specimen Anatomical Collection Method Collection Time Receive d Time (Source) Location / / Volume Laterality Blood 02/10/2018 7:49 AM 8 8:00 CDT AM CDT Narrative [facility] - 02/11/2018 9:39 AM CDT Bicarbonate, S was cancelled on 02/12/20 18 at 09:39; Duplicate test request. Mercedez Coker M.D. LAB BLOOD ADD-ON Performing Organization Address City/[facility] Phon e Number [facility] - [address] Albumin (02/10/2018 7:49 AM CDT) P athologist Signature Albumin, S CANCELED 3.5 - 5.0 02/11/2018 [facility] g/dL 9:39 AM CDT [facility] Comment: REVISED RESULTS ----PREVIOUSLY REPORTED ---- 4.2, Flagged as: Normal (Reported 02/10/2018 09:04) Specimen Anatomical Collection Method Collection Time Receive d Time (Source) Location / / Volume Laterality Blood 02/10/2018 7:49 AM 8 8:00 CDT AM CDT Narrative [facility] - 02/11/2018 9:39 AM CDT Albumin, S was cancelled on 02/11/2018 a t 09:39; Duplicate test request. Mercedez Coker M.D. LAB BLOOD ADD-ON Performing Organization Address City/State/[facility] Code Phon e Number [facility] - [address] documented in this encounter Visit Diagnoses Diagnosis Atherosclerosis Renal Artery (HCC) Chronic Kidney Disease Transplant Liver (HCC) Chronic Kidney Disease Stage 4 Glomerula r Filtration Rate 15-29 (HCC) Hypertension Essential Primary Atherosclerosis Renal Artery (HCC) Chronic Kidney Disease documented in this encounter Additional Health Concerns Assessment Noted Time PHQ-9 Depression Total Score: 1 08/26/2017 10:50 AM CS T documented as of this encounter Care Teams Roll On Worker Relationship Specialty Start Date End Date Elsewhere, Pcp PCP - General Family Medicine 07/29/17 documented as of this encounter
--- OUTSIDE RECORDS SUMMARY | 2022-04-13 12:38 | XMS_ITS | Encounter Summary ---
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 Maintenance buPROPion (WELLBUTRIN SR) Take 1 tablet by 0 03/11/201702/10/2018 100 mg 12 hr tablet mouth daily. In the morning CALCIUM CITRATE ORAL Take 2 capsules by 0 015 02/10/2018 mouth 2 (two) times a day. Maintenance CALCIUM-MAGNESIUM ORAL Take 2 capsules by 0 08/1905/04/2020 mouth 2 (two) times a day. 400mg calcium twice daily cholecalciferol (VITAMIN Take 1 tablet by 0 [...] mg capsule mouth every 12 (twelve) hours. traZODone (DESYREL) 100 Take 1 tablet by 0 201610/12/2020 mg tablet mouth at bedtime as needed for sleep. Maintenance documented as 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 [address] [place] [phone] 04/25/2022 Office Visit Otorhinolaryngology Dex Matta APRN C.NDemetriusP., M.S.N. [address] [place] [phone] 05/08/2022 Appointment Laboratory Medicine Angélica Granger P.A.-C. [address] [place] [phone] 05/08/2022 Clinical Admitting/Central Communication Scheduling 05/10/2022 Appointment Radiology Jeremie Rose M.D. [address] [place] [phone] 05/10/2022 Comprehensive Visit Orthopedic Surgery Warner Graves M.D. [address] [place] [phone] 05/22/2022 Appointment Laboratory Medicine Angélica Granger P.A.-C. [address] [place] [address] [phone] 06/05/2022 Appointment Laboratory Medicine Angélica Granger P.A.-C. [address] [place] [phone] 06/19/2022 Appointment Laboratory Medicine Angélica Granger P.A.-C. [address] [place] [phone] 07/03/2022 Appointment Laboratory Medicine Angélica Granger P.A.-C. [address] [place] [phone] 07/17/2022 Appointment Laboratory Medicine Angélica Granger P.A.-C. [address] [place] [phone] 07/31/2022 Appointment Laboratory Medicine Angélica Granger P.A.-C. [address] [place] [phone] 08/14/2022 Appointment Laboratory Medicine Angélica Granger P.A.-C. [address] [place] [phone] 08/28/2022 Appointment Laboratory Medicine Angélica Granger P.A.-C. [address] [place] [phone] documented as of this encounter Visit Diagnoses Not on filedocumented in this encounter Additional Health Concerns Assessment Noted Time PHQ-9 Depression Total Score: 1 08/26/2017 10:50 AM CS T documented as of this encounter Care Teams Search Analyst Relationship Specialty Start Date End Date Elsewhere, Pcp PCP - General Family Medicine 07/29/17 documented as of this encounter
--- OUTSIDE RECORDS SUMMARY | 2022-04-13 12:38 | XMS_ITS | Encounter Summary ---
:1955 Author Organization [facility] Address [address] [place] [address] Care Team Providers Name Role Phone Unavailable Primary Care Provider Unavailable Encounter Details Date Type Department Care Team Description 11/24/2015 Hospital Encounter HX [facility] Gail Figueroa M.D. 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 Maintenance documented as of this encounter Miscellaneous Notes Miscellaneous - He Knight M.D. - 11/27/2015 8:58 AM CDT Results Notification Document Contains Addenda Addendum by NATHANIEL PRADO LPN on November 27, 2015 12:48:17 CDT Patient informed of message below. From: HE KNIGHT MD To: EGRARDO Knight Nurse; Sent: 11/27/2015 08:58:20 CDT Show up: 11/27/2015 08:58:00 CDT Subject: Results Notification Actions: Note to Nurse normal Results: Date Result Type Result Name 11/24/2015 10:58 Radiology US Thyroid Source: [facility] POWERCHART Document Id: [id number] Electronically signed by Conversion, [facility] Construction Superintendent [id number] at 11/16/2016 9:51 PM CDT documented in this encounter Plan of Treatment Upcoming Encounters Date Type Specialty Care Team Description 04/24/2022 Appointment Laboratory Medicine Angélica Granger P.A.-C. [address] [place] [phone] 04/25/2022 Office Visit Otorhinolaryngology Dex Matta APRN, C.N.P., M.S.N. [address] [place] [phone] 05/08/2022 Appointment Laboratory Medicine Angélica Granger P.A.-C. [address] [place] [address] [phone] 05/08/2022 Clinical Admitting/Central Communication Scheduling 05/10/2022 Appointment Radiology Jeremie Rose M.D. [address] [place] [address] [phone] 05/10/2022 Comprehensive Visit Orthopedic Surgery Warner Graves M.D. [address] [place] [address] [phone] 05/22/2022 Appointment Laboratory Medicine Angélica Granger P.A.-C. [address] [place] [address] [phone] 06/05/2022 Appointment Laboratory Medicine Angélica Granger P.A.-C. [address] [place] [phone] 06/19/2022 Appointment Laboratory Medicine Angélica Granger P.A.-C. [address] [place] [phone] 07/03/2022 Appointment Laboratory Medicine Angélica Granger P.A.-C. [address] [place] [phone] 07/17/2022 Appointment Laboratory Medicine Angéliac Granger P.A.-C. [address] [place] [phone] 07/31/2022 Appointment Laboratory Medicine Angélica Granger P.A.-C. [address] [place] [phone] 08/14/2022 Appointment Laboratory Medicine Angélica Granger P.A.-C. [address] [place] [phone] 08/28/2022 Appointment Laboratory Medicine Angélica Granger P.A.-C. [address] [place] [phone] documented as of this encounter Procedures Procedure Name Priority Date/Time Associated Diagnosis Comme nts US THYROID Routine 11/24/2015 9:30 AM Results f or this CDT procedure are i n the results section . documented in this encounter Results Ultrasound thyroid (11/24/2015 9:30 AM CDT) Anatomical Region Laterality Modality Head and Neck Ultrasound Specimen (Source) Anatomical Collection Method Collection Time Re ceived Time Location / / Volume Laterality 11/24/2015 9:30 AM CDT Addenda Addendum by Provider, Sada Nicolas 11/24/2015 9:30 AM CDT RAD^^^OW US Thyroid 11/24/2015 09:30:00 Impressions 11/24/2015 10:55 AM CDT 1. Normal thyroid ultrasound. Narrative 11/24/2015 10:55 AM CDT EXAM: US Thyroid INDICATION: elevatred TSH; ? goiter COMPARISON: None. FINDINGS: Right thyroid lobe measures 3.9 x 1.6 x 1.5 cm. Left thyroid lobe measures 3.5 x 1.0 x 1 .4 cm. Thyroid size is normal. No thyroid nodules. Negative for goiter. Procedure Note Santana Parish M.D. / Fidencio Armando M.D. - 10/25/2016 EXAM: US Thyroid INDICATION: elevatred TSH; ? goiter COMPARISON: None. FINDINGS: Right thyroid lobe measures 3.9 x 1.6 x 1.5 cm. Left thyroid lobe measures 3.5 x 1.0 x 1 .4 cm. Thyroid size is normal. No thyroid nodules. Negative for goiter. IMPRESSION: 1. Normal thyroid ultrasound. Julien Perla Jr., R.D.M.S. IMG US PROCEDURES documented in this encounter Visit Diagnoses Not on filedocumented in this encounter Additional Health Concerns Assessment Noted Time PHQ-9 Depression Total Score: 3 05/30/2015 10:21 AM CS T documented as of this encounter
--- OUTSIDE RECORDS SUMMARY | 2022-04-13 12:38 | XMS_ITS | Encounter Summary ---
:1955 Author Organization [facility] Address [address] [place] [address] Care Team Providers Name Role Phone Damaso Medina P.A.-C. 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 Pulse 47 03/25/2017 11:09 Value from [facility] tplus. AM CDT Temperature - - Respiratory Rate 14 03/25/2017 11:09 Value from [facility] rtplus. AM CDT Oxygen Saturation - - Inhaled Oxygen - - Concentration Weight 81.7 kg (180 lb 1.9 03/25/2017 6:31 AM oz) CDT Height 177 cm (5' 9.69) 03/24/2017 5:58 AM CDT Body Mass Index 26.08 03/24/2017 5:58 AM CDT documented in this encounter Medications [...] 0 05/3003/26/2018 (FISH OIL ORAL) mouth daily. fluticasone (FLONASE Administer 1 spray 0 017 [...] Appointment Laboratory Medicine Angélica Granger P.A.-Janette [address] [place] [phone] 04/25/2022 Office Visit Otorhinolaryngology Dex Matta APRN, C.N.P., M.S.N. [address] [place] [phone] 05/08/2022 Appointment Laboratory Medicine Angélica Granger P.A.-C. [address] [place] [phone] 05/08/2022 Clinical Admitting/Central Communication Scheduling 05/10/2022 Appointment Radiology Jeremie Rose M.D. [address] [place] [phone] 05/10/2022 Comprehensive Visit Orthopedic Surgery Warner Graves M.D. [address] [place] [phone] 05/22/2022 Appointment Laboratory Medicine Angélica Granger P.A.-C. [address] [place] [phone] 06/05/2022 Appointment Laboratory Medicine Angélica Granger P.A.-C. [address] [place] [phone] 06/19/2022 Appointment Laboratory Medicine Angélica Granger P.A.-C. [address] [place] [phone] 07/03/2022 Appointment Laboratory Medicine Angélica Granger P.A.-C. [address] [place] [phone] 07/17/2022 Appointment Laboratory Medicine Angélica Granger P.A.-C. [address] [place] [phone] 07/31/2022 Appointment Laboratory Medicine Angélica Granger P.A.-C. [address] [place] [phone] 08/14/2022 Appointment Laboratory Medicine Angélica Granger P.A.-C. [address] [place] [phone] 08/28/2022 Appointment Laboratory Medicine Angélica Granger P.A.-C. [address] [place] [address] documented as of this encounter Procedures Procedure Name Priority Date/Time Associated Comments Diagnosis GLUCOSE POCT, B Routine 03/25/2017 6:35 AM Result s for this CDT procedure are i n the results section. V&IRAD VASCULAR & Routine 03/24/2017 4:24 PM Resu lts for this INTERVENTION CDT procedure are i n the results section. ECG Routine 03/24/2017 5:52 AM Results f or this CDT procedure are i n the results section. documented in this encounter Results Glucose, POCT (03/25/2017 6:35 AM CDT) [facility] gist Method Time Signature Glucose, 92 70 - 140 [facility] POCT, B MG/DL [facility] - [facility] Sample Site, Capillary [facility] Blood Gas, [facility]ATORIES - POCT [facility] Last Intake 3-4 hours [facility] Specimen Anatomical Collection Method Collection Time Receive d Time (Source) Location / / Volume Laterality 03/25/2017 6:35 AM 7 6:35 CDT AM CDT Historical Provider LAB POCT ORDERABLES-MANUAL Performing Organization Address City/State/ZIP Code Phon e Number [facility] - [address] [place], [place] [address] [facility] V&IRAD Vascular & Intervention (03/24/2017 4:24 PM CDT) Anatomical Region Laterality Modality N/A X-Ray Angiography Specimen (Source) Anatomical Collection Method Collection Time Re ceived Time Location / / Volume Laterality 03/24/2017 4:24 PM CDT Impressions 03/25/2017 5:32 PM CDT Technically challenging placement of left renal artery 6 mm Herculink stent due to critical origin stenosis. The patient will be admitted overnight for observation of blood pressure. ?? PROCEDURE: ?? (1) Left renal artery angiogram by right common femoral artery puncture. (2) 6 mm x 18 mm Herculink left renal ar edelmira stent deployment. ? HISTORY: Elevated creatinine. Critical s tenosis identified on left renal artery ultrasound of 03/06/2017. Left renal atrophy. Liver transplant x 2. ?? TECHNIQUE/FINDINGS: After informed conse nt was obtained from the patient, the patient was brought to the Interventional Radiology suite and placed in a supine position. Using standard micropuncture tech nique and 1% lidocaine for local anesthe susie, access was gained into the patent right common femoral artery and a micropuncture sheath was placed. Image was saved to ultrasound. A guidewire was advanced to the suprarenal abdominal aorta follow ed by placement of a 6-Divehi Brite Tip sheath measuring 30 cm. This was placed due to marked iliac tortuosity. Through a Cobra catheter advanced through a ALVARADO g uide catheter, multiple attempts were ma de to engage the origin of the left renal artery for an angiogram. The catheter could not engage the origin and therefore, a limited angiogram was performed throu gh this catheter within the aorta center ed at the renal arteries non- selectively. Contrast does pass through the critical stenosis of the proximal left renal artery. Then due to the down-going nature of the left renal artery and the severe stenosis, the decision was made to try to gain access using a SOS catheter. Wire access was eventually able to be gained into the proximal left renal arter y to allow the SOS to engage into the or igin of the left renal artery proximal to the stenosis. An angiogram was performed which demonstrates critical short- segment stenosis of the left main renal arter y just distal to the origin and normal-a ppearing filling of the intrarenal branches. Multiple configurations were attempted to gain stable purchase within the left renal artery to allow for predilatatio n and eventual stenting. The most stable configuration involved using an Jeferson II sheath, a Cobra catheter, a Direxion microcatheter through the Cobra catheter, and a Spartacore wire. The wire and micro catheter were advanced into the segmenta l branches of the left renal artery to allow for stable purchase and then the microcatheter and Cobra catheter were removed leaving the Jeferson II sheath. Then a 6 mm x 2 cm James balloon was used to predilate the critical stenosis in the proximal left renal artery. Then the 6 mm x 18 mm Herculink stent was deployed such that the stent extended slightl y into the aorta and extended into a str aight segment of the renal artery. This was dilated to 6mm. Completion angiogram at the proximal portion of the stent demonstrated good antegrade filling of the i ntrarenal branches and no nontarget embo lization or dissection. The sheath was then removed and the puncture site closed with a StarClose device. No complications. ?? PREPROCEDURE: Patient seen, evaluated, h istory reviewed, and approved for sedation. Airway, heart, and lung exam satisfactory for sedation. Discussed risks, benefits, alternatives for procedure, and/or sedation. The roles and responsibilities of care team members, residents, and fellows were discussed. Patient understands information and questions answered. Informed consent obtained from the patient. Immediately prior to starting the proced ure, in the presence of the assisting personnel, a procedural pause was conducted to verify correct patient identity and verification of procedure to be performed , and as applicable, correct side and si te, correct patient position, availability of implants, special equipment, or special requirements, and all image and specimen identification data. ?? INTRAPROCEDURE: Moderate sedation was ad ministered by sedation nurse under my supervision. The patient was continuously monitored with real-time oxygen saturation, heart rate, ECG rhythm strip, and bloo d pressure throughout administration of the sedation and performance of the procedure. The total intraprocedural sedation time was 150 minutes. ?? Fluoro time: 68.7 minutes Electronically signed by: ?? Anju More MD [phone] 25-Mar-2017 17:32 ?Lynn Torres M.D., ?? [phone] 25-Mar-2017 17:32 Narrative 03/25/2017 5:32 PM CDT 24-Mar-2017 16:24:00 ??Exam: V&IRAD Vascular & Intervention Indications: LEFT RENAL ARTERIOGRAM +/- COMMISSIONED SECURITY OFFICER/STENTING Renal artery stenosis ORIGINAL REPORT - 25-Mar-2017 17:32:00 V&IRAD Vascular & Intervention: Procedure Note Cheryl Torres M.D. - 09/17/2017Form atting of this note might be different from the original. 24-Mar-2017 16:24:00 Exam: V&IRAD Vascul ar & Intervention Indications: LEFT RENAL ARTERIOGRAM +/- COMMISSIONED SECURITY OFFICER/STENTING Renal artery stenosis ORIGINAL REPORT - 25-Mar-2017 17:32:00 V&IRAD Vascular & Intervention: IMPRESSION: Technically challenging plac ement of left renal artery 6 mm Herculink stent due to critical origin stenosis. The patient will be admitted overnight for observation of blood pressure. PROCEDURE: (1) Left renal artery angiogram by right common femoral artery puncture. (2) 6 mm x 18 mm Herculink left renal ar edelmira stent deployment. HISTORY: Elevated creatinine. Critical s tenosis identified on left renal artery ultrasound of 03/06/2017. Left renal atrophy. Liver transplant x 2. TECHNIQUE/FINDINGS: After informed conse nt was obtained from the patient, the patient was brought to the Interventional Radiology suite and placed in a supine position. Using standard micropuncture technique and 1% lidocaine for local anesthesia, access w as gained into the patent right common femoral artery and a micropuncture sheath was placed. Image was saved to ultrasound. A guidewire was advanced to the suprarenal abdominal aorta followed by placement of a 6-Frenc h Brite Tip sheath measuring 30 cm. This was placed due to marked iliac tortuosity. Through a Cobra catheter advanced through a ALVARADO guide catheter, multiple attempts were made to engage the origin of the left re nal artery for an angiogram. The catheter could not engage the origin and therefore, a limited angiogram was performed through this catheter within the aorta centered at the renal arteries non-selectively. Contrast does pass through the critical stenosis of the proximal left renal artery. Then due to the down-going nature of the left renal artery and the severe stenosis, the decision was made to try to gain access using a SOS catheter. Wire access was eventually able to be gained into the proximal left renal artery to allow the SOS to engage into the origin of the left renal artery proximal to the stenosis. An angiogram was performed which demonst rates critical short-segment stenosis of the left main renal artery just distal to the origin and normal-appearing filling of the intrarenal branches. Multiple configurations were attempted to gain st able purchase within the left renal artery to allow for predilatation and eventual stenting. The most stable configuration involved using an Jeferson II sheath, a Cobra catheter, a Direxion microcatheter through the Cob ra catheter, and a Spartacore wire. The wire and microcatheter were advanced into the segmental branches of the left renal artery to allow for stable purchase and then the microcatheter and Cobra catheter were re moved leaving the Jeferson II sheath. Then a 6 mm x 2 cm James balloon was used to predilate the critical stenosis in the proximal left renal artery. Then the 6 mm x 18 mm Herculink stent was deployed such that t he stent extended slightly into the aorta and extended into a straight segment of the renal artery. This was dilated to 6mm. Completion angiogram at the proximal portion of the stent demonstrated good antegrade fillin g of the intrarenal branches and no nontarget embolization or dissection. The sheath was then removed and the puncture site closed with a StarClose device. No complications. PREPROCEDURE: Patient seen, evaluated, h istory reviewed, and approved for sedation. Airway, heart, and lung exam satisfactory for sedation. Discussed risks, benefits, alternatives for procedure, and/or sedation. The roles and responsibilities of care t eam members, residents, and fellows were discussed. Patient understands information and questions answered. Informed consent obtained from the patient. Immediately prior to starting the procedure, in the presence of the assisting personnel, a procedural pause was conducted to verify correct patient identity and verification of procedure to be performed, and as applicable, correct side and site, correct patient position, avai lability of implants, special equipment, or special requirements, and all image and specimen identification data. INTRAPROCEDURE: Moderate sedation was ad ministered by sedation nurse under my supervision. The patient was continuously monitored with real-time oxygen saturation, heart rate, ECG rhythm strip, and blood pressure throughout administration of the sedatio n and performance of the procedure. The total intraprocedural sedation time was 150 minutes. Fluoro time: 68.7 minutes Electronically signed by: Anju More MD [phone] 25-Mar-2017 17:32 Lynn Torres M.D., [phone] 25-Mar-2017 17:32 Mercedez Coker M.D. IMG IR PROCEDURES ECG 12 Lead (03/24/2017 5:52 AM CDT) Specimen (Source) Anatomical Collection Method Collection Time Re ceived Time Location / / Volume Laterality 03/24/2017 5:52 AM CDT Narrative HISTORICAL [facility] CONVERSION - 08/2016 10:54 AM CDT 24Mar2017 05:52 VENTRICULAR RATE 53 Sinus bradycardia Otherwise normal ECG When compared with ECG of 29-MAY-2015 11 :56, No significant change was found [id number]^RONALD PETTIT^SIVA Procedure Note Siva Garcia M.D., Ph.D. - 8 24Mar2017 05:52 VENTRICULAR RATE 53 Sinus bradycardia Otherwise normal ECG When compared with ECG of 29-MAY-2015 11 :56, No significant change was found [id number]^RONALD PETTIT^SIVA Cheryl Torres M.D. ECG ORDERABLES Performing Organization Address City/State/ZIP Code Phon e Number HX D[facility]CH CONVERSION HISTORICAL [facility] CONVERSION documented in this encounter Visit Diagnoses Not on filedocumented in this encounter Additional Health Concerns Assessment Noted Time PHQ-9 Depression Total Score: 3 08/20/2016 12:36 PM CS T documented as of this encounter Care Teams Lockstitch Front Edge Tape Sewer Relationship Specialty Start Date End Date Damaso Medina P.A.-C. PCP - General 12/05/16 07/28/17 [address] [place] [address] documented as of this encounter
--- OUTSIDE RECORDS SUMMARY | 2022-04-13 12:38 | XMS_ITS | Encounter Summary ---
:1955 Author Organization [facility] Address [address] [place] [address] Care Team Providers Name Role Phone Elsewhere, Pcp Primary Care Provider Unavailable Encounter Details Date Type Department Care Team Description 07/29/2017 Orders Only Department of Family Damaso Medina, Medicine, [facility] in 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 [address] [place] [phone] 04/25/2022 Office Visit Otorhinolaryngology Dex Matta APRN, C.N.P., M.S.N. [address] [place] [phone] 05/08/2022 Appointment Laboratory Medicine Angélica Granger P.A.-C. [address] [place] [phone] 05/08/2022 Clinical Admitting/Central Communication Scheduling 05/10/2022 Appointment Radiology Jeremie Rose M.D. [address] [place] [phone] 05/10/2022 Comprehensive Visit Orthopedic Surgery Warner Graves M.D. [address] [place] [phone] 05/22/2022 Appointment Laboratory Medicine Angélica Granger P.A.-C. [address] [place] [phone] 06/05/2022 Appointment Laboratory Medicine Angélica Granger P.A.-C. [address] [place] [phone] 06/19/2022 Appointment Laboratory Medicine Angélica Granger P.A.-C. [address] [place] [phone] 07/03/2022 Appointment Laboratory Medicine Angélica Granger P.A.-C. [address] [place] [phone] 07/17/2022 Appointment Laboratory Medicine Angélica Granger P.A.-C. [address] [place] [phone] 07/31/2022 Appointment Laboratory Medicine Angélica Granger P.A.-C. [address] [place] [phone] 08/14/2022 Appointment Laboratory Medicine Angélica Granger P.A.-C. [address] [place] [phone] 08/28/2022 Appointment Laboratory Medicine Angélica Granger P.A.-C. [address] [place] [phone] documented as of this encounter Visit Diagnoses Not on filedocumented in this encounter Additional Health Concerns Assessment Noted Time PHQ-9 Depression Total Score: 3 08/20/2016 12:36 PM CS T documented as of this encounter Care Teams Rigging And Controls Aircraft Mechanic Relationship Specialty Start Date End Date Elsewhere, Pcp PCP - General Family Medicine 07/29/17 documented as of this encounter
--- OUTSIDE RECORDS SUMMARY | 2022-04-13 12:38 | XMS_ITS | Encounter Summary ---
:1955 Author Organization [facility] Address [address] [place] [address] Care Team Providers Name Role Phone Unavailable Primary Care Provider Unavailable Encounter Details Date Type Department Care Team Description 12/11/2015 Hospital Encounter HX [facility] Channing Jhaveri M.D. 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 Maintenance documented as of this encounter Plan of Treatment Upcoming Encounters Date Type Specialty Care Team Description 04/24/2022 Appointment Laboratory Medicine Angélica Granger, P.A.-C. [address] [place] [phone] 04/25/2022 Office Visit Otorhinolaryngology Dex Matta APRN, C.N.P., M.S.N. [address] [place] [phone] 05/08/2022 Appointment Laboratory Medicine Angélica Granger P.A.-C. [address] [place] [phone] 05/08/2022 Clinical Admitting/Central Communication Scheduling 05/10/2022 Appointment Radiology Jeremie Rose M.D. [address] [place] [phone] 05/10/2022 Comprehensive Visit Orthopedic Surgery Warner Graves M.D. [address] [place] [phone] 05/22/2022 Appointment Laboratory Medicine Angélica Granger P.A.-C. [address] [place] [phone] 06/05/2022 Appointment Laboratory Medicine Angélica Granger P.A.-C. [address] [place] [phone] 06/19/2022 Appointment Laboratory Medicine Angélica Granger P.A.-C. [address] [place] [phone] 07/03/2022 Appointment Laboratory Medicine Angélica Granger P.A.-C. [address] [place] [phone] 07/17/2022 Appointment Laboratory Medicine Angélica Granger P.A.-C. [address] [place] [phone] 07/31/2022 Appointment Laboratory Medicine Angélica Granger P.A.-C. [address] [place] [phone] 08/14/2022 Appointment Laboratory Medicine Angélica Granger Jennifer Stern. [address] [place] [phone] 08/28/2022 Appointment Laboratory Medicine Angélica GrangerEdmundo [address] [place] [phone] documented as of this encounter Procedures Procedure Name Priority Date/Time Associated Comments Diagnosis AUTOMATED DIFFERENTIAL, Routine 12/11/2015 8:52 R esults for this B AM CDT procedure are i n the results section. CBC WITH DIFFERENTIAL, B Routine 12/11/2015 8:52 Results for this AM CDT procedure are i n the results section. ALANINE AMINOTRANSFERASE Routine 12/11/2015 8:52 Results for this (ALT), S/P AM CDT procedure are i n the results section. ASPARTATE Routine 12/11/2015 8:52 Results for this AMINOTRANSFERASE (AST), AM CDT proc edure are in S/P the results section. SODIUM, S/P Routine 12/11/2015 8:52 Results for this AM CDT procedure are i n the results section. POTASSIUM, S/P Routine 12/11/2015 8:52 Results fo r this AM CDT procedure are i n the results section. ALKALINE PHOSPHATASE, Routine 12/11/2015 8:52 Res ults for this S/P AM CDT procedure are i n the results section. GLUCOSE, FASTING, S/P Routine 12/11/2015 8:52 Res ults for this AM CDT procedure are i n the results section. CREATININE WITH EGFR, Routine 12/11/2015 8:52 Res ults for this S/P AM CDT procedure are i n the results section. BILIRUBIN, TOT, S/P Routine 12/11/2015 8:52 Resul ts for this AM CDT procedure are i n the results section. documented in this encounter Results Automated Differential (12/11/2015 8:52 AM CDT) P athologist Signature Absolute 1.96 1.70 - POWERCHART Neutrophils 7.00 109L Lymphocytes 2.02 0.90 - POWERCHART 2.90 X109L Monocytes 0.72 0.30 - POWERCHART 0.90 X109L Eosinophils 0.27 0.05 - POWERCHART 0.50 X109L Absolute 0.01 0.00 - POWERCHART Basophil 0.30 X109L Specimen Anatomical Collection Method Collection Time Receive d Time (Source) Location / / Volume Laterality Blood 12/11/2015 8:52 AM 6 8:52 CDT AM CDT Tiffanie Wan M.D. LAB BLOOD ADD-ON Performing Organization Address City/State/ZIP Code Phon e Number POWERCHART (ABNORMAL) CBC with Differential (12/11/2015 8:52 AM CDT) Analysis Performed At Patho logist Time Signature Leukocytes 5.0 3.5 - 10.5 POWERCHART X109L Erythrocytes 3.91 (L) 4.32 - POWERCHART 5.72 [id number] Hemoglobin 12.4 (L) 13.5 - POWERCHART 17.5 GDL Hematocrit 37.3 (L) 38.8 - POWERCHART 50.0 MCV 95.4 (H) 81.0 - POWERCHART 95.0 FL Platelet Count 196 150 - 450 POWERCHART X109L HX RDW 13.0 11.8 - POWERCHART 15.6 Specimen (Source) Anatomical Collection Method Collection Time Re ceived Time Location / / Volume Laterality Blood 12/11/2015 8:52 AM CDT Tiffanie Wan M.D. LAB BLOOD ADD-ON Performing Organization Address City/[facility]/ZIP Code Phon e Number POWERCHART ALT (Alanine Aminotransferase) (12/11/2015 8:52 AM CDT) P athologist Signature Alanine 22 7 - 55 POWERCHART Amniotransferas UNITL e, LD Specimen (Source) Anatomical Collection Method Collection Time Re ceived Time Location / / Volume Laterality Blood 12/11/2015 8:52 AM CDT Tiffanie Wan M.D. LAB BLOOD ADD-ON Performing Organization Address City/[facility]/ZIP Code Phon e Number POWERCHART (ABNORMAL) Glucose, Fasting (12/11/2015 8:52 AM CDT) P athologist Signature Glucose, 110 (H) 70 - 99 POWERCHART Fasting, S MGDL Specimen (Source) Anatomical Collection Method Collection Time Re ceived Time Location / / Volume Laterality Blood 12/11/2015 8:52 AM CDT Tiffanie Wan M.D. LAB BLOOD NON ADD-ON Performing Organization Address City/State/ZIP Code Phon e Number POWERCHART Bilirubin, Total (12/11/2015 8:52 AM CDT) P athologist Signature Bilirubin, 0.5 0.1 - 1.0 POWERCHART Total, S MGDL Specimen (Source) Anatomical Collection Method Collection Time Re ceived Time Location / / Volume Laterality Blood 12/11/2015 8:52 AM CDT Tiffanie Wan M.D. LAB BLOOD ADD-ON Performing Organization Address City/[facility]/ZIP Code Phon e Number POWERCHART AST (Aspartate Aminotransferase) (12/11/2015 8:52 AM CDT) Patholo gist Method Time Signature Aspartate 21 8 - 48 POWERCHART Aminotransferase UNITL (AST), S Specimen (Source) Anatomical Collection Method Collection Time Re ceived Time Location / / Volume Laterality Blood 12/11/2015 8:52 AM CDT Tiffanie Wan M.D. LAB BLOOD ADD-ON Performing Organization Address City/[facility]/ZIP Code Phon e Number POWERCHART Alkaline Phosphatase (12/11/2015 8:52 AM CDT) P athologist Signature Alkaline 70 45 - 115 POWERCHART Phosphatase, S UNITL Specimen (Source) Anatomical Collection Method Collection Time Re ceived Time Location / / Volume Laterality Blood 12/11/2015 8:52 AM CDT Tiffanie Wan M.D. LAB BLOOD ADD-ON Performing Organization Address City/State/ZIP Code Phon e Number POWERCHART Sodium (12/11/2015 8:52 AM CDT) P athologist Signature Sodium, S 137 135 - 145 POWERCHART MMOLL Specimen (Source) Anatomical Collection Method Collection Time Re ceived Time Location / / Volume Laterality Blood 12/11/2015 8:52 AM CDT Tiffanie Wan M.D. LAB BLOOD ADD-ON Performing Organization Address City/State/ZIP Code Phon e Number POWERCHART (ABNORMAL) Creatinine with eGFR (12/11/2015 8:52 AM CDT) Analysis Performed At Patho logist Time Signature Creatinine 2.17 (H) 0.80 - POWERCHART 1.30 MGDL HXeGFR (MDRD) 31 (L) >=60 POWERCHART [id number] eGFR 38 (L) >=60 POWERCHART Black/ [id number] [place] Specimen (Source) Anatomical Collection Method Collection Time Re ceived Time Location / / Volume Laterality Blood 12/11/2015 8:52 AM CDT Tiffanie Wan M.D. LAB BLOOD ADD-ON Performing Organization Address City/State/ZIP Code Phon e Number POWERCHART Potassium (12/11/2015 8:52 AM CDT) P athologist Signature Potassium, S 3.8 3.6 - 5.2 POWERCHART MMOLL Specimen (Source) Anatomical Collection Method Collection Time Re ceived Time Location / / Volume Laterality Blood 12/11/2015 8:52 AM CDT Tiffanie Wan M.D. LAB BLOOD ADD-ON Performing Organization Address City/State/ZIP Code Phon e Number POWERCHART documented in this encounter Visit Diagnoses Not on filedocumented in this encounter Additional Health Concerns Assessment Noted Time PHQ-9 Depression Total Score: 3 05/30/2015 10:21 AM CS T documented as of this encounter
--- OUTSIDE RECORDS SUMMARY | 2022-04-13 12:38 | XMS_ITS | Encounter Summary ---
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 [address] [place] [phone] 04/25/2022 Office Visit Otorhinolaryngology Dex Matta APRN, C.N.P., M.S.N. [address] [place] [phone] 05/08/2022 Appointment Laboratory Medicine Angélica Granger P.A.-CDemetrius [address] [place] [phone] 05/08/2022 Clinical Admitting/Central Communication Scheduling 05/10/2022 Appointment Radiology Jeremie Rose M.D. [address] [place] [address] [phone] 05/10/2022 Comprehensive Visit Orthopedic Surgery Warner Graves M.D. [address] [place] [address] [phone] 05/22/2022 Appointment Laboratory Medicine Angélica Granger P.A.-CDemetrius [address] [place] [phone] 06/05/2022 Appointment Laboratory Medicine Angélica Granger P.A.-CDemetrius [address] [place] [phone] 06/19/2022 Appointment Laboratory Medicine Angélica Granger P.A.-C. [address] [place] [phone] 07/03/2022 Appointment Laboratory Medicine Angélica Granger P.A.-C. [address] [place] [phone] 07/17/2022 Appointment Laboratory Medicine Angélica Granger P.A.-C. [address] [place] [phone] 07/31/2022 Appointment Laboratory Medicine Angélica Granger P.A.-C. [address] [place] [phone] 08/14/2022 Appointment Laboratory Angélica Royal P.A.-C. [address] [place] [phone] 08/28/2022 Appointment Laboratory Angélica Royal P.A.-C. [address] [place] [phone] documented as of this encounter Visit Diagnoses Not on filedocumented in this encounter Additional Health Concerns Infection Onset Date Last Indicated Resolved Time COVID19 Pending 12/13/2019 12/13/2019 12/14/2019 11:03 AM CDT COVID19 Pending 01/26/2020 01/27/2020 01/28/2020 12:12 AM CDT Assessment Noted Time PHQ-9 Depression Total Score: 3 08/20/2016 12:36 PM CS T documented as of this encounter Care Teams Dental Coordinator Relationship Specialty Start Date End Date Elsewhere, Pcp PCP - General Family Medicine 07/29/17 [facility] - Laboratory Medicine 04/12/[address] [address] documented as of this encounter
--- OUTSIDE RECORDS SUMMARY | 2022-04-13 12:38 | XMS_ITS | Encounter Summary ---
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 [address] [place] [phone] 04/25/2022 Office Visit Otorhinolaryngology Dex Matta APRN, C.N.P., M.S.N. [address] [place] [phone] 05/08/2022 Appointment Laboratory Medicine Angélica Granger P.A.-C. [address] [place] [phone] 05/08/2022 Clinical Admitting/Central Communication Scheduling 05/10/2022 Appointment Radiology Jeremie Rose M.D. [address] [place] [phone] 05/10/2022 Comprehensive Visit Orthopedic Surgery Warner Graves M.D. [address] [place] [phone] 05/22/2022 Appointment Laboratory Medicine Angélica Granger P.A.-C. [address] [place] [phone] 06/05/2022 Appointment Laboratory Medicine Angélica Granger P.A.-C. [address] [place] [phone] 06/19/2022 Appointment Laboratory Medicine Angélica Granger P.A.-C. [address] [place] [phone] 07/03/2022 Appointment Laboratory Medicine Angélica Granger P.A.-C. [address] [place] [phone] 07/17/2022 Appointment Laboratory Medicine Angélica Granger P.A.-C. [address] [place] [phone] 07/31/2022 Appointment Laboratory Medicine Angélica Granger P.A.-C. [address] [place] [phone] 08/14/2022 Appointment Laboratory Medicine Angélica Granger P.A.-C. [address] [place] [phone] 08/28/2022 Appointment Laboratory Medicine Angélica Granger P.A.-C. [address] [place] [phone] documented as of this encounter Procedures Procedure Name Priority Date/Time Associated Comments Diagnosis GASTROENTEROLOGY IMAGE Routine 08/27/2017 7:35 Re sults for this EXAM AM MANAGER NUCLEAR procedure are i n the results section. documented in this encounter Results GASTROENTEROLOGY IMAGE EXAM (08/27/2017 7:35 AM MANAGER NUCLEAR) Specimen (Source) Anatomical Collection Method Collection Time Re ceived Time Location / / Volume Laterality 08/27/2017 7:32 AM MANAGER NUCLEAR Narrative [facility] - 08/27/2017 8:30 AM MANAGER NUCLEAR This order has been created and auto-finalized [...] as of this encounter Care Teams Copy Operator Relationship Specialty Start Date End Date Elsewhere, Pcp PCP - General Family Medicine 07/29/17 documented as of this encounter
--- OUTSIDE RECORDS SUMMARY | 2022-04-13 12:38 | XMS_ITS | Encounter Summary ---
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 Pain. No more than 2000 mg per day. coenzyme Q10 (CO Q-10) Take 1 capsule [...] Appointment Laboratory Medicine Angélica Granger P.ASky [address] [place] [phone] 04/25/2022 Office Visit Otorhinolaryngology Dex Matta APRN, C.N.P., M.S.N. [address] [place] [phone] 05/08/2022 Appointment Laboratory Medicine Angélica Granger P.A.-C. [address] [place] [phone] 05/08/2022 Clinical Admitting/Central Communication Scheduling 05/10/2022 Appointment Radiology Jeremie Rose M.D. [address] [place] [phone] 05/10/2022 Comprehensive Visit Orthopedic Surgery Warner Graves M.D. [address] [place] [phone] 05/22/2022 Appointment Laboratory Medicine Angélica Granger P.A.-C. [address] [place] [phone] 06/05/2022 Appointment Laboratory Medicine Angélica Granger P.A.-C. [address] [place] [phone] 06/19/2022 Appointment Laboratory Medicine Angélica Granger P.A.-C. [address] [place] [phone] 07/03/2022 Appointment Laboratory Medicine Angélica Granger P.A.-C. [address] [place] [phone] 07/17/2022 Appointment Laboratory Medicine Angélica Granger P.A.-C. [address] [place] [phone] 07/31/2022 Appointment Laboratory Medicine Angélica Granger P.A.-C. [address] [place] [phone] 08/14/2022 Appointment Laboratory Medicine Angélica Granger P.A.-C. [address] [place] [phone] 08/28/2022 Appointment Laboratory Medicine Angélica Granger P.A.-C. [address] [place] [phone] documented as of this encounter Visit Diagnoses Not on filedocumented in this encounter Additional Health Concerns Assessment Noted Time PHQ-9 Depression Total Score: 1 08/26/2017 10:50 AM CS T documented as of this encounter Care Teams Automotive Painter Relationship Specialty Start Date End Date Elsewhere, Pcp PCP - General Family Medicine 07/29/17 documented as of this encounter
--- OUTSIDE RECORDS SUMMARY | 2022-04-13 12:38 | XMS_ITS | Encounter Summary ---
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 Maintenance CALCIUM CITRATE ORAL Take 2 capsules by [...] Laboratory Medicine Angélica Granger P.A.-C. [address] [place] [phone] 04/25/2022 Office Visit Otorhinolaryngology Dex Matta APRN, C.N.P., M.S.N. [address] [place] [phone] 05/08/2022 Appointment Laboratory Medicine Angélica Granger P.A.-C. [address] [place] [phone] 05/08/2022 Clinical Admitting/Central Communication Scheduling 05/10/2022 Appointment Radiology Jeremie Rose M.D. [address] [place] [phone] 05/10/2022 Comprehensive Visit Orthopedic Surgery Warner Graves M.D. [address] [place] [phone] 05/22/2022 Appointment Laboratory Medicine Angélica Granger P.A.-C. [address] [place] [phone] 06/05/2022 Appointment Laboratory Medicine Angélica Granger P.A.-C. [address] [place] [phone] 06/19/2022 Appointment Laboratory Medicine Angélica Granger P.A.-C. [address] [place] [phone] 07/03/2022 Appointment Laboratory Medicine Angélica Granger P.A.-C. [address] [place] [phone] 07/17/2022 Appointment Laboratory Medicine Angélica Granger P.A.-C. [address] [place] [phone] 07/31/2022 Appointment Laboratory Medicine Angélica Granger P.A.-C. [address] [place] [phone] 08/14/2022 Appointment Laboratory Medicine Angélica Granger P.A.-C. [address] [place] [phone] 08/28/2022 Appointment Laboratory Medicine Angélica Granger P.A.-C. [address] [place] [phone] documented as of this encounter Visit Diagnoses [...]
--- OUTSIDE RECORDS SUMMARY | 2022-04-13 12:38 | XMS_ITS | Encounter Summary ---
:1955 Author Organization [facility] Address [address] [place] [address] Care Team Providers Name Role Phone Damaso Medina P.A.-C. 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 [address] [place] [phone] 04/25/2022 Office Visit Otorhinolaryngology Dex Matta APRN, C.N.P., M.S.N. [address] [place] [phone] 05/08/2022 Appointment Laboratory Medicine Angélica Granger P.A.-C. [address] [place] [phone] 05/08/2022 Clinical Admitting/Central Communication Scheduling 05/10/2022 Appointment Radiology Jeremie Rose M.D. [address] [place] [phone] 05/10/2022 Comprehensive Visit Orthopedic Surgery Warner Graves M.D. [address] [place] [phone] 05/22/2022 Appointment Laboratory Medicine Angélica Granger P.A.-C. [address] [place] [phone] 06/05/2022 Appointment Laboratory Medicine Angélica Granger P.A.-C. [address] [place] [phone] 06/19/2022 Appointment Laboratory Medicine Angélica Granger P.A.-C. [address] [place] [phone] 07/03/2022 Appointment Laboratory Medicine Angélica Granger P.A.-C. [address] [place] [phone] 07/17/2022 Appointment Laboratory Medicine Angélica Granger P.A.-C. [address] [place] [phone] 07/31/2022 Appointment Laboratory Medicine Angélica Granger P.A.-C. [address] [place] [phone] 08/14/2022 Appointment Laboratory Medicine Angélica Granger P.A.-C. [address] [place] [phone] 08/28/2022 Appointment Laboratory Medicine Angélica Granger P.A.-C. [address] [place] [phone] documented as of this encounter Visit Diagnoses Not on filedocumented in this encounter Additional Health Concerns Assessment Noted Time PHQ-9 Depression Total Score: 3 08/20/2016 12:36 PM CS T documented as of this encounter Care Teams Pet Food Deboner Relationship Specialty Start Date End Date Damaso Medina P.A.-C. PCP - General 12/05/16 07/28/[address] [place] [phone] documented as of this encounter
--- OUTSIDE RECORDS SUMMARY | 2022-04-13 12:38 | XMS_ITS | Encounter Summary ---
:1955 Author Organization [facility] Address [address] [place] [address] Care Team Providers Name Role Phone Damaso Medina P.A.-C. 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 [address] [place] [phone] 04/25/2022 Office Visit Otorhinolaryngology Dex Matta APRN, C.NDemetriusP., M.S.N. [address] [place] [phone] 05/08/2022 Appointment Laboratory Medicine Angélica Granger P.A.-C. [address] [place] [phone] 05/08/2022 Clinical Admitting/Central Communication Scheduling 05/10/2022 Appointment Radiology Jeremie Rose M.D. [address] [place] [address] [phone] 05/10/2022 Comprehensive Visit Orthopedic Surgery Warner Graves M.D. [address] [place] [phone] 05/22/2022 Appointment Laboratory Medicine Angélica Granger P.A.-C. [address] [place] [phone] 06/05/2022 Appointment Laboratory Medicine Angélica Granger P.A.-C. [address] [place] [phone] 06/19/2022 Appointment Laboratory Medicine Angélica Granger P.A.-C. [address] [place] [phone] 07/03/2022 Appointment Laboratory Medicine nAgélica Granger P.A.-C. [address] [place] [phone] 07/17/2022 Appointment Laboratory Medicine Angélica Granger P.A.-C. [address] [place] [phone] 07/31/2022 Appointment Laboratory Medicine Angélica Granger P.A.-C. [address] [place] [address] [phone] 08/14/2022 Appointment Laboratory Medicine Angélica Granger P.A.-C. [address] [place] [address] [phone] 08/28/2022 Appointment Laboratory Medicine Angélica Granger P.A.-C. [address] [place] [address] [phone] documented as of this encounter Visit Diagnoses Not on filedocumented in this encounter Additional Health Concerns Assessment Noted Time PHQ-9 Depression Total Score: 3 08/20/2016 12:36 PM CS T documented as of this encounter Care Teams Early Childhood Education Coordinator Relationship Specialty Start Date End Date Damaso Medina P.A.-C. PCP - General 12/05/16 07/28/[address] [place] [address] [phone] documented as of this encounter
--- OUTSIDE RECORDS SUMMARY | 2022-04-13 12:39 | XMS_ITS | Encounter Summary ---
:1955 Author Organization [facility] Address [address] [place] [address] Care Team Providers Name Role Phone Unavailable Primary Care Provider Unavailable Encounter Details Date Type Department Care Team Description 07/25/2015 Hospital Encounter HX [facility] Dari Wan M.D. 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 [address] [place] [phone] 04/25/2022 Office Visit Otorhinolaryngology Dex Matta APRN, C.N.P., M.S.N. [address] [place] [phone] 05/08/2022 Appointment Laboratory Medicine Angélica Granger P.A.-C. [address] [place] [phone] 05/08/2022 Clinical Admitting/Central Communication Scheduling 05/10/2022 Appointment Radiology Jeremie Rose M.D. [address] [place] [phone] 05/10/2022 Comprehensive Visit Orthopedic Surgery Warner Graves M.D. [address] [place] [phone] 05/22/2022 Appointment Laboratory Medicine Angélica Granger P.A.-C. [address] [place] [phone] 06/05/2022 Appointment Laboratory Medicine Angélica Granger P.A.-C. [address] [place] [phone] 06/19/2022 Appointment Laboratory Medicine Angélica Granger P.A.-C. [address] [place] [phone] 07/03/2022 Appointment Laboratory Medicine Angélica Granger P.A.-C. [address] [place] [phone] 07/17/2022 Appointment Laboratory Medicine Angélica Granger P.A.-C. [address] [place] [phone] 07/31/2022 Appointment Laboratory Medicine Angélica Granger P.A.-C. [address] [place] [phone] 08/14/2022 Appointment Laboratory Medicine Angélica GrangerJennifer. [address] [place] [phone] 08/28/2022 Appointment Laboratory Medicine Angélica GrangerJennifer. [address] [place] [phone] documented as of this encounter Procedures Procedure Name Priority Date/Time Associated Comments Diagnosis GLUCOSE, P Routine 07/25/2015 10:33 Results for this AM MANAGER QUANTITATIVE procedure are i n the results section. AUTOMATED DIFFERENTIAL, Routine 07/25/2015 10:33 Results for this B AM MANAGER QUANTITATIVE procedure are i n the results section. CBC WITH DIFFERENTIAL, B Routine 07/25/2015 10:33 Results for this AM MANAGER QUANTITATIVE procedure are i n the results section. ASPARTATE Routine 07/25/2015 10:33 Results for this AMINOTRANSFERASE (AST), AM MANAGER QUANTITATIVE proc edure are in S/P the results section. SODIUM, S/P Routine 07/25/2015 10:33 Results for this AM MANAGER QUANTITATIVE procedure are i n the results section. POTASSIUM, S/P Routine 07/25/2015 10:33 Results f or this AM MANAGER QUANTITATIVE procedure are i n the results section. ALKALINE PHOSPHATASE, Routine 07/25/2015 10:33 Re sults for this S/P AM MANAGER QUANTITATIVE procedure are i n the results section. CREATININE WITH EGFR, Routine 07/25/2015 10:33 Re sults for this S/P AM MANAGER QUANTITATIVE procedure are i n the results section. BILIRUBIN, TOT, S/P Routine 07/25/2015 10:33 Resu lts for this AM MANAGER QUANTITATIVE procedure are i n the results section. documented in this encounter Results Automated Differential (07/25/2015 10:33 AM MANAGER QUANTITATIVE) P athologist Signature Absolute 2.35 1.70 - POWERCHART Neutrophils 7.00 109L Lymphocytes 1.99 0.90 - POWERCHART 2.90 X109L Monocytes 0.70 0.30 - POWERCHART 0.90 X109L Eosinophils 0.22 0.05 - POWERCHART 0.50 X109L Absolute 0.02 0.00 - POWERCHART Basophil 0.30 X109L Specimen Anatomical Collection Method Collection Time Receive d Time (Source) Location / / Volume Laterality Blood 07/25/2015 10:33 07/25/2015 AM MANAGER QUANTITATIVE 10:33 AM MANAGER QUANTITATIVE Tiffanie Wan M.D. LAB BLOOD ADD-ON Performing Organization Address City/State/ZIP Code Phon e Number POWERCHART (ABNORMAL) CBC with Differential (07/25/2015 10:33 AM MANAGER QUANTITATIVE) Analysis Performed At Patho logist Time Signature Leukocytes 5.3 3.5 - 10.5 POWERCHART X109L Erythrocytes 4.33 4.32 - POWERCHART 5.72 [id number] Hemoglobin 13.2 (L) 13.5 - POWERCHART 17.5 GDL Hematocrit 41.2 38.8 - POWERCHART 50.0 MCV 95.2 (H) 81.0 - POWERCHART 95.0 FL Platelet Count 178 150 - 450 POWERCHART X109L HX RDW 13.0 11.8 - POWERCHART 15.6 Specimen (Source) Anatomical Collection Method Collection Time Re ceived Time Location / / Volume Laterality Blood 07/25/2015 10:33 AM MANAGER QUANTITATIVE Tiffanie Wan M.D. LAB BLOOD ADD-ON Performing Organization Address City/State/ZIP Code Phon e Number POWERCHART Sodium (07/25/2015 10:33 AM MANAGER QUANTITATIVE) P athologist Signature Sodium, S 140 135 - 145 POWERCHART MMOLL Specimen (Source) Anatomical Collection Method Collection Time Re ceived Time Location / / Volume Laterality Blood 07/25/2015 10:33 AM MANAGER QUANTITATIVE Tiffanie Wan M.D. LAB BLOOD ADD-ON Performing Organization Address City/State/ZIP Code Phon e Number POWERCHART Potassium (07/25/2015 10:33 AM MANAGER QUANTITATIVE) P athologist Signature Potassium, S 4.5 3.6 - 5.2 POWERCHART MMOLL Specimen (Source) Anatomical Collection Method Collection Time Re ceived Time Location / / Volume Laterality Blood 07/25/2015 10:33 AM MANAGER QUANTITATIVE Tiffanie Wan M.D. LAB BLOOD ADD-ON Performing Organization Address City/State/ZIP Code Phon e Number POWERCHART Glucose (07/25/2015 10:33 AM MANAGER QUANTITATIVE) athologist Signature Glucose 111 70 - 139 POWERCHART MGDL Specimen (Source) Anatomical Collection Method Collection Time Re ceived Time Location / / Volume Laterality Blood 07/25/2015 10:33 AM MANAGER QUANTITATIVE Tiffanie Wan M.D. LAB BLOOD ADD-ON Performing Organization Address City/State/ZIP Code Phon e Number POWERCHART (ABNORMAL) Creatinine with eGFR (07/25/2015 10:33 AM MANAGER QUANTITATIVE) athologist Signature Creatinine 2.0 (H) 0.8 - 1.3 POWERCHART MGDL HXeGFR (MDRD) 34 (L) >=60 POWERCHART [id number] eGFR 41 (L) >=60 POWERCHART Black/ [id number] Bulgarian Specimen (Source) Anatomical Collection Method Collection Time Re ceived Time Location / / Volume Laterality Blood 07/25/2015 10:33 AM MANAGER QUANTITATIVE Tiffanie Wan M.D. LAB BLOOD ADD-ON Performing Organization Address City/State/ZIP Code Phon e Number POWERCHART Bilirubin, Total (07/25/2015 10:33 AM MANAGER QUANTITATIVE) athologist Signature Bilirubin, 0.4 0.1 - 1.0 POWERCHART Total, S MGDL Specimen (Source) Anatomical Collection Method Collection Time Re ceived Time Location / / Volume Laterality Blood 07/25/2015 10:33 AM MANAGER QUANTITATIVE Tiffanie Wan M.D. LAB BLOOD ADD-ON Performing Organization Address City/State/ZIP Code Phon e Number POWERCHART AST (Aspartate Aminotransferase) (07/25/2015 10:33 AM MANAGER QUANTITATIVE) [facility] gist Method Time Signature Aspartate 21 8 - 48 POWERCHART Aminotransferase UNITL (AST), S Specimen (Source) Anatomical Collection Method Collection Time Re ceived Time Location / / Volume Laterality Blood 07/25/2015 10:33 AM MANAGER QUANTITATIVE Tiffanie Wan M.D. LAB BLOOD ADD-ON Performing Organization Address City/State/ZIP Code Phon e Number POWERCHART Alkaline Phosphatase (07/25/2015 10:33 AM MANAGER QUANTITATIVE) P athologist Signature Alkaline 71 45 - 115 POWERCHART Phosphatase, S UNITL Specimen (Source) Anatomical Collection Method Collection Time Re ceived Time Location / / Volume Laterality Blood 07/25/2015 10:33 AM MANAGER QUANTITATIVE Tiffanie Wan M.D. LAB BLOOD ADD-ON Performing Organization Address City/State/ZIP Code Phon e Number POWERCHART documented in this encounter Visit Diagnoses Not on filedocumented in this encounter Additional Health Concerns Assessment Noted Time PHQ-9 Depression Total Score: 3 05/30/2015 10:21 AM CS T documented as of this encounter
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
--- OUTSIDE RECORDS SUMMARY | 2022-04-13 12:39 | XMS_ITS | Encounter Summary ---
:1955 Author Organization 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 [address] [place] [phone] 04/25/2022 Office Visit Otorhinolaryngology Dex Matta APRN, C.N.P., M.S.N. [address] [place] [phone] 05/08/2022 Appointment Laboratory Medicine Angélica Granger P.A.-C. [address] [place] [address] [phone] 05/08/2022 Clinical Admitting/Central Communication Scheduling 05/10/2022 Appointment Radiology Jeremie Rose M.D. [address] [place] [phone] 05/10/2022 Comprehensive Visit Orthopedic Surgery Warner Graves M.D. [address] [place] [phone] 05/22/2022 Appointment Laboratory Medicine Angélica Granger P.A.-CDemetrius [address] [place] [address] [phone] 06/05/2022 Appointment Laboratory Medicine Angélica Granger P.A.-CDemetrius [address] [place] [address] [phone] 06/19/2022 Appointment Laboratory Medicine Angélica Granger P.A.-C. [address] [place] [phone] 07/03/2022 Appointment Laboratory Medicine Angélica Granger P.A.-C. [address] [place] [phone] 07/17/2022 Appointment Laboratory Medicine Angélica Granger P.A.-C. [address] [place] [phone] 07/31/2022 Appointment Laboratory Medicine Angélica Granger P.A.-C. [address] [place] [phone] 08/14/2022 Appointment Laboratory Medicine Angélica Granger P.A.-C. [address] [place] [phone] 08/28/2022 Appointment Laboratory Medicine Angélica Granger P.A.-C. [address] [place] [phone] documented as of this encounter Visit Diagnoses Not on filedocumented in this encounter Additional Health Concerns Infection Onset Date Last Indicated Resolved Time COVID19 Pending 12/13/2019 12/13/2019 12/14/2019 11:03 AM CDT COVID19 Pending 01/26/2020 01/27/2020 01/28/2020 12:12 AM CDT Assessment Noted Time PHQ-9 Depression Total Score: 3 05/30/2015 10:21 AM CS T documented as of this encounter Care Teams Dye Range Operator Relationship Specialty Start Date End Date Elsewhere, Pcp PCP - General Family Medicine 07/29/17 [facility] - Laboratory Medicine 04/12/[address] [phone] documented as of this encounter
--- OUTSIDE RECORDS SUMMARY | 2022-04-13 12:39 | XMS_ITS | Encounter Summary ---
:1955 Author Organization [facility] Address [address] [place] [address] Care Team Providers Name Role Phone Unavailable Primary Care Provider Unavailable Encounter Details Date Type Department Care Team Description 09/20/2015 Hospital Encounter HX [facility]ILY[facility] Kg Santoyo P.A.-C. 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 - 09/20/2015 2:25 PM CDT [id number] CHIEF COMPLAINT/REASON FOR VISIT Sinus congestion. HISTORY OF PRESENT ILLNESS Bruce is a very pleasant 60-year-old male who has had some sinus congestion now for the last week ortwo. It does not seem to be getting any better on its own. PHYSICAL EXAMINATION VITAL SIGNS: Noted in the EMR. GENERAL: He appears in no acute distress. ENT: TMs no erythema. Throat no erythema. He has tenderness to percussion over his maxillary and ethmoid sinuses. HEART: Regular rate and rhythm. No murmurs. LUNGS: Clear to auscultation. IMPRESSION/REPORT/PLAN Sinusitis. I will treat him with Augmentin 875 mg 2 times daily for 10 days. He will continue to usehis nasal saline rinse. If his symptoms worsen or not improve in 7 to 10 days, he will let us know. Otherwise, follow up as needed. 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 Electronically Signed By: EUGENIA HONG LPN On: 10/02/2015 09:38 AM Source: [facility] POWERCHART Document Id: [id number] documented in this encounter Miscellaneous Notes Telephone Encounter - Eugenia Hong L.PSteve - 09/29/2015 5:03 PM CDT *Phone Message From: EUGENIA HONG LPN To: MIRTHA SANTOYO PA-C; Sent: 09/29/2015 17:03:53 CDT Subject: *Phone Message Caller is: ( ) Patient ( ) Mother ( ) Father ( ) Spouse ( ) Daughter ( ) Son ( ) Pharmacy ( ) Other: Physician: Patient MRN #: Reason for Call: Bruce needs a cdiff lab done per [place] following his liver transplant Message: Advice/Action: Source used: ( ) Verbalizes [...] back cell phone number ( ) Source: [facility] [employer] Document Id: [id number] Miscellaneous - Mirtha Santoyo P.A.-C. - 09/20/2015 3:29 PM CDT Ambulatory Discharge Medication List [address] [id number] Visit Information Name: BRUCE SINGH [facility] Number: [phone] Visit Date: 09/20/2015 15:29:51 Attending Provider: MIRTHA SANTOYO PA-C Primary Care [...] tab(s) PO one hour before dental procedure amoxicillin-clavulanate (Augmentin 875 mg-125 mg oral tablet) 1 Tablet(s), Oral, two times a day x 10 day(s) New Routed to [address] [id number] aspirin (aspirin 81 mg oral tablet) 1 [...] the Following Medications: Medication list as of 09-20-15 15:29 Attention: If you have any medications at [...] Electronically Signed By: MIRTHA SANTOYO PA-C Signed On:20-SEP-2015 15:29:42 Additional Information: Source: [facility] POWERCHART Document Id: [id number] Miscellaneous - Mirtha Santoyo P.A.-C. - 09/20/2015 3:29 PM CDT Ambulatory Patient Summary [id number] [place], [place] [id number] Visit Information Name: BRUCE SINGH [facility] Number: [id number] Current Date: 09/20/2015 15:29:52 Physicians Attending Provider: MIRTHA SANTOYO PA-C Primary [...] tab(s) PO one hour before dental procedure amoxicillin-clavulanate (Augmentin 875 mg-125 mg oral tablet) 1 Tablet(s), Oral, two times a day x 10 day(s) New Routed to [address] [id number] aspirin (aspirin 81 mg oral tablet) 1 [...] the Following Medications: Medication list as of 09-20-15 15:29 Attention: If you have any medications at [...] Electronically Signed By: MIRTHA SANTOYO PA-C Signed On:20-SEP-2015 15:29:42 Your Allergies & Intolerances Substance Reaction Symptoms Category Comments ciprofloxacin Drug erythromycin Drug citalopram Drug ZyPREXA Drug SEROquel Drug Your Problem List Problem Status Onset Comments Cirrhosis Cryptogenic Active Transplant Liver (OLT) Active Bipolar I Disorder NOS Active Insufficiency Renal NOS Active Your Upcoming Appointments Date Time Location Provider 10/16/2015 08:45 [facility] Attention: Contact [...] if you dont have one. Go to [email or web address] and click on Create Your Account. Then, follow the directions to complete the online form. Youll be asked for your [facility] number which you can find at the top of this document. Your Goals/Additional instructions: Source: [facility] POWERCHART Document Id: [id number] Miscellaneous - Hai Ybarra, C.M.A. 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 Intake Chief Complaint : Possible sinus infection no energy Onset of Symptoms : 10 days ago Temperature Core : 37.0 DegC(Converted to: 98.6 DegF) Peripheral Pulse Rate : 66 /min Respiratory Rate : 14 /min Heart Rhythm : Regular Systolic Blood Pressure : 126 mmHg Diastolic Blood Pressure : 72 mmHg NIBP Mean : 90 mmHg BP Location : Left upper extremity Blood Pressure Cuff Size : Regular Height : 178 cm(Converted to: 5 ft 10 inch(es), 70 inch(es)) Actual Weight : 88 kg(Converted to: 194 lb 0 oz) Weight Source : Standing scale Dosing Weight Clinic : 88 kg Clinic BSA : 2.09 Body Mass Index : 27.77 kg/m2 HAI YBARRA [facility] - 09/20/2015 14:31 CDT General Info Information Given By : Patient Preferred Communication Mode : Verbal, Written Languages : Salvadorean Is Patient Female and 13-50 no hysterectomy : No HAI YBARRA [facility] - 09/20/2015 14:31 CDT Subjective Pain Symptoms : No HAI YBARRA [facility] - 09/20/2015 14:31 CDT Dependent Habits Exposure to Tobacco Smoke : Care provider denies smoking in home, Other: no smoke Smoking Status : Never smoker Tobacco 2A : No Tobacco Use/Currently Using : No Tobacco Use/Last 30 Days : No Tobacco Use/Last 12 months : HAI Castellon [facility] - 09/20/2015 14:31 CDT Source: [facility] Document Id: [id number]!33 documented in this encounter Plan of Treatment Upcoming Encounters Date Type Specialty Care Team Description 04/24/2022 Appointment Laboratory Medicine Angélica Granger P.A.-C. [address] [place] [phone] 04/25/2022 Office Visit Otorhinolaryngology Dex Matta APRN, C.N.P., M.S.N. [address] [place] [phone] 05/08/2022 Appointment Laboratory Medicine Angélica Granger P.A.-C. [address] [place] [phone] 05/08/2022 Clinical Admitting/Central Communication Scheduling 05/10/2022 Appointment Radiology Jeremie Rose M.D. [address] [place] [phone] 05/10/2022 Comprehensive Visit Orthopedic Surgery Warner Graves M.D. [address] [place] [phone] 05/22/2022 Appointment Laboratory Medicine Angélica Granger P.A.-C. [address] [place] [phone] 06/05/2022 Appointment Laboratory Medicine Angélica Granger P.A.-C. [address] [place] [phone] 06/19/2022 Appointment Laboratory Medicine Angélica Granger P.A.-C. [address] [place] [phone] 07/03/2022 Appointment Laboratory Medicine Angélica Granger P.A.-C. [address] [place] [phone] 07/17/2022 Appointment Laboratory Medicine Angélica Granger P.A.-C. [address] [place] [phone] 07/31/2022 Appointment Laboratory Medicine Angélica Granger P.A.-C. [address] [place] [phone] 08/14/2022 Appointment Laboratory Medicine Angélica Granger P.A.-C. [address] [place] [phone] 08/28/2022 Appointment Laboratory Medicine Angélica Granger P.A.-C. [address] [place] [phone] documented as of this encounter Visit Diagnoses Not on filedocumented in this encounter Additional Health Concerns Assessment Noted Time PHQ-9 Depression Total Score: 3 05/30/2015 10:21 AM CS T documented as of this encounter
--- OUTSIDE RECORDS SUMMARY | 2022-04-13 12:39 | XMS_ITS | Encounter Summary ---
:1955 Author Organization [facility] Address [address] [place] [address] Care Team Providers Name Role Phone Unavailable Primary Care Provider Unavailable Encounter Details Date Type Department Care Team Description 11/13/2015 Hospital Encounter HX [facility] Channing Jhaveri M.D. 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 [address] [place] [phone] 04/25/2022 Office Visit Otorhinolaryngology Dex Matta APRN, C.N.P., M.S.N. [address] [place] [phone] 05/08/2022 Appointment Laboratory Medicine Angélica Granger P.A.-C. [address] [place] [phone] 05/08/2022 Clinical Admitting/Central Communication Scheduling 05/10/2022 Appointment Radiology Jeremie Rose M.D. [address] [place] [phone] 05/10/2022 Comprehensive Visit Orthopedic Surgery Warner Graves M.D. [address] [place] [phone] 05/22/2022 Appointment Laboratory Medicine Angélica Granger P.A.-C. [address] [place] [phone] 06/05/2022 Appointment Laboratory Medicine Angélica Granger P.A.-C. [address] [place] [phone] 06/19/2022 Appointment Laboratory Medicine Angélica Granger P.A.-C. [address] [place] [phone] 07/03/2022 Appointment Laboratory Medicine Angélica Granger P.A.-C. [address] [place] [phone] 07/17/2022 Appointment Laboratory Medicine Angélica Granger P.A.-C. [address] [place] [phone] 07/31/2022 Appointment Laboratory Medicine Angélica Granger P.A.-C. [address] [place] [phone] 08/14/2022 Appointment Laboratory Medicine Angélica Granger Jennifer Stern. [address] [place] [phone] 08/28/2022 Appointment Laboratory Medicine Angélica GrangerEdmundo [address] [place] [phone] documented as of this encounter Procedures Procedure Name Priority Date/Time Associated Comments Diagnosis GLUCOSE, P Routine 11/13/2015 8:52 Results for this AM CDT procedure are i n the results section. AUTOMATED DIFFERENTIAL, Routine 11/13/2015 8:52 R esults for this B AM CDT procedure are i n the results section. CBC WITH DIFFERENTIAL, B Routine 11/13/2015 8:52 Results for this AM CDT procedure are i n the results section. ALANINE AMINOTRANSFERASE Routine 11/13/2015 8:52 Results for this (ALT), S/P AM CDT procedure are i n the results section. ASPARTATE Routine 11/13/2015 8:52 Results for this AMINOTRANSFERASE (AST), AM CDT proc edure are in S/P the results section. SODIUM, S/P Routine 11/13/2015 8:52 Results for this AM CDT procedure are i n the results section. POTASSIUM, S/P Routine 11/13/2015 8:52 Results fo r this AM CDT procedure are i n the results section. ALKALINE PHOSPHATASE, Routine 11/13/2015 8:52 Res ults for this S/P AM CDT procedure are i n the results section. CREATININE WITH EGFR, Routine 11/13/2015 8:52 Res ults for this S/P AM CDT procedure are i n the results section. BILIRUBIN, TOT, S/P Routine 11/13/2015 8:52 Resul ts for this AM CDT procedure are i n the results section. documented in this encounter Results Automated Differential (11/13/2015 8:52 AM CDT) P athologist Signature Absolute 1.73 1.70 - POWERCHART Neutrophils 7.00 109L Lymphocytes 2.12 0.90 - POWERCHART 2.90 X109L Monocytes 0.74 0.30 - POWERCHART 0.90 X109L Eosinophils 0.41 0.05 - POWERCHART 0.50 X109L Absolute 0.01 0.00 - POWERCHART Basophil 0.30 X109L Specimen Anatomical Collection Method Collection Time Receive d Time (Source) Location / / Volume Laterality Blood 11/13/2015 8:52 AM 6 8:52 CDT AM CDT Tiffanie Wan M.D. LAB BLOOD ADD-ON Performing Organization Address City/State/ZIP Code Phon e Number POWERCHART (ABNORMAL) CBC with Differential (11/13/2015 8:52 AM CDT) Analysis Performed At Patho logist Time Signature Leukocytes 5.0 3.5 - 10.5 POWERCHART X109L Erythrocytes 3.84 (L) 4.32 - POWERCHART 5.72 [id number] Hemoglobin 12.3 (L) 13.5 - POWERCHART 17.5 GDL Hematocrit 36.4 (L) 38.8 - POWERCHART 50.0 MCV 94.8 81.0 - POWERCHART 95.0 FL Platelet Count 177 150 - 450 POWERCHART X109L HX RDW 13.0 11.8 - POWERCHART 15.6 Specimen (Source) Anatomical Collection Method Collection Time Re ceived Time Location / / Volume Laterality Blood 11/13/2015 8:52 AM CDT Tiffanie Wan M.D. LAB BLOOD ADD-ON Performing Organization Address City/[facility] Code Phon e Number POWERCHART Sodium (11/13/2015 8:52 AM CDT) P athologist Signature Sodium, S 140 135 - 145 POWERCHART MMOLL Specimen Anatomical Collection Method Collection Time Receive d Time (Source) Location / / Volume Laterality Blood 11/13/2015 8:52 AM 6 8:52 CDT AM CDT Tiffanie Wan M.D. LAB BLOOD ADD-ON Performing Organization Address City/State/ZIP Code Phon e Number POWERCHART Bilirubin, Total (11/13/2015 8:52 AM CDT) P athologist Signature Bilirubin, 0.4 0.1 - 1.0 POWERCHART Total, S MGDL Specimen (Source) Anatomical Collection Method Collection Time Re ceived Time Location / / Volume Laterality Blood 11/13/2015 8:52 AM CDT Tiffanie Wan M.D. LAB BLOOD ADD-ON Performing Organization Address City/State/ZIP Code Phon e Number POWERCHART AST (Aspartate Aminotransferase) (11/13/2015 8:52 AM CDT) Patholo gist Method Time Signature Aspartate 19 8 - 48 POWERCHART Aminotransferase UNITL (AST), S Specimen (Source) Anatomical Collection Method Collection Time Re ceived Time Location / / Volume Laterality Blood 11/13/2015 8:52 AM CDT Tiffanie Wan M.D. LAB BLOOD ADD-ON Performing Organization Address City/[facility]/ZIP Code Phon e Number POWERCHART ALT (Alanine Aminotransferase) (11/13/2015 8:52 AM CDT) P athologist Signature Alanine 23 7 - 55 POWERCHART Amniotransferas UNITL e, LD Specimen (Source) Anatomical Collection Method Collection Time Re ceived Time Location / / Volume Laterality Blood 11/13/2015 8:52 AM CDT Tiffanie Wan M.D. LAB BLOOD ADD-ON Performing Organization Address City/[facility]/ZIP Code Phon e Number POWERCHART Glucose (11/13/2015 8:52 AM CDT) P athologist Signature Glucose 109 70 - 139 POWERCHART MGDL Specimen (Source) Anatomical Collection Method Collection Time Re ceived Time Location / / Volume Laterality Blood 11/13/2015 8:52 AM CDT Tiffanie Wan M.D. LAB BLOOD ADD-ON Performing Organization Address City/[facility]/ZIP Code Phon e Number POWERCHART Alkaline Phosphatase (11/13/2015 8:52 AM CDT) P athologist Signature Alkaline 70 45 - 115 POWERCHART Phosphatase, S UNITL Specimen (Source) Anatomical Collection Method Collection Time Re ceived Time Location / / Volume Laterality Blood 11/13/2015 8:52 AM CDT Tiffanie Wan M.D. LAB BLOOD ADD-ON Performing Organization Address City/State/ZIP Code Phon e Number POWERCHART (ABNORMAL) Creatinine with eGFR (11/13/2015 8:52 AM CDT) P athologist Signature Creatinine 2.0 (H) 0.8 - 1.3 POWERCHART MGDL HXeGFR (MDRD) 35 (L) >=60 POWERCHART [id number] eGFR 42 (L) >=60 POWERCHART Black/ [id number] Croatian Specimen (Source) Anatomical Collection Method Collection Time Re ceived Time Location / / Volume Laterality Blood 11/13/2015 8:52 AM CDT Tiffanie Wan M.D. LAB BLOOD ADD-ON Performing Organization Address City/State/ZIP Code Phon e Number POWERCHART Potassium (11/13/2015 8:52 AM CDT) P athologist Signature Potassium, S 4.2 3.6 - 5.2 POWERCHART MMOLL Specimen (Source) Anatomical Collection Method Collection Time Re ceived Time Location / / Volume Laterality Blood 11/13/2015 8:52 AM CDT Tiffanie Wan M.D. LAB BLOOD ADD-ON Performing Organization Address City/State/ZIP Code Phon e Number POWERCHART documented in this encounter Visit Diagnoses Not on filedocumented in this encounter Additional Health Concerns Assessment Noted Time PHQ-9 Depression Total Score: 3 05/30/2015 10:21 AM CS T documented as of this encounter
--- OUTSIDE RECORDS SUMMARY | 2022-04-13 12:39 | XMS_ITS | Encounter Summary ---
:1955 Author Organization [facility] Address [address] [place] [address] Care Team Providers Name Role Phone Unavailable Primary Care Provider Unavailable Encounter Details Date Type Department Care Team Description 08/24/2015 Hospital Encounter HX [facility] Dari Wan M.D. 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 [address] [place] [phone] 04/25/2022 Office Visit Otorhinolaryngology Dex Matta APRN, C.N.P., M.S.N. [address] [place] [phone] 05/08/2022 Appointment Laboratory Medicine Angélica Granger P.A.-C. [address] [place] [phone] 05/08/2022 Clinical Admitting/Central Communication Scheduling 05/10/2022 Appointment Radiology Jeremie Rose M.D. [address] [place] [phone] 05/10/2022 Comprehensive Visit Orthopedic Surgery Warner Graves M.D. [address] [place] [phone] 05/22/2022 Appointment Laboratory Medicine Angélica Granger P.A.-C. [address] [place] [phone] 06/05/2022 Appointment Laboratory Medicine Angélica Granger P.A.-C. [address] [place] [phone] 06/19/2022 Appointment Laboratory Medicine Angélica Granger P.A.-C. [address] [place] [phone] 07/03/2022 Appointment Laboratory Medicine Angélica Granger P.A.-C. [address] [place] [phone] 07/17/2022 Appointment Laboratory Medicine Angélica Granger P.A.-C. [address] [place] [phone] 07/31/2022 Appointment Laboratory Medicine Angélica Granger P.A.-C. [address] [place] [phone] 08/14/2022 Appointment Laboratory Medicine EmilieAngélica wilcox Edmundo Stern [address] [place] [phone] 08/28/2022 Appointment Laboratory Medicine Angélica Granger Edmundo Stern [address] [place] [phone] documented as of this encounter Procedures Procedure Name Priority Date/Time Associated Comments Diagnosis ALANINE AMINOTRANSFERASE Routine 08/21/2015 9:43 Results for this (ALT), S/P AM DOCUMENT CONTROL SUPERVISOR procedure are i n the results section. CREATININE WITH EGFR, Routine 08/21/2015 9:43 Res ults for this S/P AM DOCUMENT CONTROL SUPERVISOR procedure are i n the results section. documented in this encounter Results ALT (Alanine Aminotransferase) (08/21/2015 9:43 AM DOCUMENT CONTROL SUPERVISOR) athologist Signature Alanine 17 7 - 55 POWERCHART Amniotransferas UNITL e, LD Specimen (Source) Anatomical Collection Method Collection Time Re ceived Time Location / / Volume Laterality Blood 08/21/2015 9:43 AM DOCUMENT CONTROL SUPERVISOR Tiffanie Wan M.D. LAB BLOOD ADD-ON Performing Organization Address City/State/ZIP Code Phon e Number POWERCHART (ABNORMAL) Creatinine with eGFR (08/21/2015 9:43 AM DOCUMENT CONTROL SUPERVISOR) athologist Signature Creatinine 2.4 (H) 0.8 - 1.3 POWERCHART MGDL HXeGFR (MDRD) 28 (L) >=60 POWERCHART [id number] eGFR 34 (L) >=60 POWERCHART Black/ [id number] Guatemalan Specimen (Source) Anatomical Collection Method Collection Time Re ceived Time Location / / Volume Laterality Blood 08/21/2015 9:43 AM DOCUMENT CONTROL SUPERVISOR Tiffanie Wan M.D. LAB BLOOD ADD-ON Performing Organization Address City/[facility]/ZIP Code Phon e Number POWERCHART documented in this encounter Visit Diagnoses Not on filedocumented in this encounter Additional Health Concerns Assessment Noted Time PHQ-9 Depression Total Score: 3 05/30/2015 10:21 AM CS T documented as of this encounter
--- OUTSIDE RECORDS SUMMARY | 2022-04-13 12:39 | XMS_ITS | Encounter Summary ---
:1955 Author Organization [facility] Address [address] [place] [address] Care Team Providers Name Role Phone Unavailable Primary Care Provider Unavailable Encounter Details Date Type Department Care Team Description 10/16/2015 Hospital Encounter [facility]X [facility] Dari Wan M.D. 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 [address] [place] [phone] 04/25/2022 Office Visit Otorhinolaryngology Dex Matta APRN, C.N.P., M.S.N. [address] [place] [phone] 05/08/2022 Appointment Laboratory Medicine GunAngélica wilcox P.A.-C. [address] [place] [phone] 05/08/2022 Clinical Admitting/Central Communication Scheduling 05/10/2022 Appointment Radiology Jeremie Rose M.D. [address] [place] [phone] 05/10/2022 Comprehensive Visit Orthopedic Surgery Warner Graves M.D. [address] [place] [phone] 05/22/2022 Appointment Laboratory Medicine Angélica Granger P.A.-C. [address] [place] [phone] 06/05/2022 Appointment Laboratory Medicine Angélica Granger P.A.-C. [address] [place] [phone] 06/19/2022 Appointment Laboratory Medicine Angélica Granger P.A.-C. [address] [place] [phone] 07/03/2022 Appointment Laboratory Medicine Angélica Granger P.A.-C. [address] [place] [phone] 07/17/2022 Appointment Laboratory Medicine Angélica Granger P.A.-C. [address] [place] [phone] 07/31/2022 Appointment Laboratory Medicine Angélica Granger P.A.-C. [address] [place] [phone] 08/14/2022 Appointment Laboratory Medicine Angélica GrangerJennifer. [address] [place] [phone] 08/28/2022 Appointment Laboratory Medicine Angélica GrangerJennifer. [address] [place] [phone] documented as of this encounter Procedures Procedure Name Priority Date/Time Associated Comments Diagnosis GLUCOSE, P Routine 10/16/2015 8:49 Results for this AM CDT procedure are i n the results section. AUTOMATED DIFFERENTIAL, Routine 10/16/2015 8:49 R esults for this B AM CDT procedure are i n the results section. CBC WITH DIFFERENTIAL, B Routine 10/16/2015 8:49 Results for this AM CDT procedure are i n the results section. ALANINE AMINOTRANSFERASE Routine 10/16/2015 8:49 Results for this (ALT), S/P AM CDT procedure are i n the results section. ASPARTATE Routine 10/16/2015 8:49 Results for this AMINOTRANSFERASE (AST), AM CDT proc edure are in S/P the results section. SODIUM, S/P Routine 10/16/2015 8:49 Results for this AM CDT procedure are i n the results section. POTASSIUM, S/P Routine 10/16/2015 8:49 Results fo r this AM CDT procedure are i n the results section. ALKALINE PHOSPHATASE, Routine 10/16/2015 8:49 Res ults for this S/P AM CDT procedure are i n the results section. CREATININE WITH EGFR, Routine 10/16/2015 8:49 Res ults for this S/P AM CDT procedure are i n the results section. BILIRUBIN, TOT, S/P Routine 10/16/2015 8:49 Resul ts for this AM CDT procedure are i n the results section. documented in this encounter Results Automated Differential (10/16/2015 8:49 AM CDT) athologist Signature Absolute 3.01 1.70 - POWERCHART Neutrophils 7.00 109L Lymphocytes 2.06 0.90 - POWERCHART 2.90 X109L Monocytes 0.77 0.30 - POWERCHART 0.90 X109L Eosinophils 0.38 0.05 - POWERCHART 0.50 X109L Absolute 0.02 0.00 - POWERCHART Basophil 0.30 X109L Specimen Anatomical Collection Method Collection Time Receive d Time (Source) Location / / Volume Laterality Blood 10/16/2015 8:49 AM 6 8:49 CDT AM CDT Tiffanie Wan M.D. LAB BLOOD ADD-ON Performing Organization Address City/State/ZIP Code Phon e Number POWERCHART (ABNORMAL) CBC with Differential (10/16/2015 8:49 AM CDT) Analysis Performed At Patho logist Time Signature Leukocytes 6.2 3.5 - 10.5 POWERCHART X109L Erythrocytes 4.12 (L) 4.32 - POWERCHART 5.72 J1730T Hemoglobin 13.3 (L) 13.5 - POWERCHART 17.5 GDL Hematocrit 38.9 38.8 - POWERCHART 50.0 MCV 94.4 81.0 - POWERCHART 95.0 FL Platelet Count 184 150 - 450 POWERCHART X109L HX RDW 13.3 11.8 - POWERCHART 15.6 Specimen (Source) Anatomical Collection Method Collection Time Re ceived Time Location / / Volume Laterality Blood 10/16/2015 8:49 AM CDT Tiffanie Wan M.D. LAB BLOOD ADD-ON Performing Organization Address City/State/ZIP Code Phon e Number POWERCHART Bilirubin, Total (10/16/2015 8:49 AM CDT) P athologist Signature Bilirubin, 0.2 0.1 - 1.0 POWERCHART Total, S MGDL Specimen (Source) Anatomical Collection Method Collection Time Re ceived Time Location / / Volume Laterality Blood 10/16/2015 8:49 AM CDT Tiffanie Wan M.D. LAB BLOOD ADD-ON Performing Organization Address City/State/ZIP Code Phon e Number POWERCHART AST (Aspartate Aminotransferase) (10/16/2015 8:49 AM CDT) Patholo gist Method Time Signature Aspartate 29 8 - 48 POWERCHART Aminotransferase UNITL (AST), S Specimen (Source) Anatomical Collection Method Collection Time Re ceived Time Location / / Volume Laterality Blood 10/16/2015 8:49 AM CDT Tiffanie Wan M.D. LAB BLOOD ADD-ON Performing Organization Address City/State/ZIP Code Phon e Number POWERCHART ALT (Alanine Aminotransferase) (10/16/2015 8:49 AM CDT) P athologist Signature Alanine 39 7 - 55 POWERCHART Amniotransferas UNITL e, LD Specimen (Source) Anatomical Collection Method Collection Time Re ceived Time Location / / Volume Laterality Blood 10/16/2015 8:49 AM CDT Tiffanie Wan M.D. LAB BLOOD ADD-ON Performing Organization Address City/State/ZIP Code Phon e Number POWERCHART Glucose (10/16/2015 8:49 AM CDT) P athologist Signature Glucose 128 70 - 139 POWERCHART MGDL Specimen (Source) Anatomical Collection Method Collection Time Re ceived Time Location / / Volume Laterality Blood 10/16/2015 8:49 AM CDT Tiffanie Wan M.D. LAB BLOOD ADD-ON Performing Organization Address City/State/ZIP Code Phon e Number POWERCHART Alkaline Phosphatase (10/16/2015 8:49 AM CDT) P athologist Signature Alkaline 73 45 - 115 POWERCHART Phosphatase, S UNITL Specimen (Source) Anatomical Collection Method Collection Time Re ceived Time Location / / Volume Laterality Blood 10/16/2015 8:49 AM CDT Tiffanie Wan M.D. LAB BLOOD ADD-ON Performing Organization Address City/State/ZIP Code Phon e Number POWERCHART (ABNORMAL) Creatinine with eGFR (10/16/2015 8:49 AM CDT) P athologist Signature Creatinine 1.8 (H) 0.8 - 1.3 POWERCHART MGDL HXeGFR (MDRD) 39 (L) >=60 POWERCHART [id number] eGFR 47 (L) >=60 POWERCHART Black/ [id number] [place] Specimen (Source) Anatomical Collection Method Collection Time Re ceived Time Location / / Volume Laterality Blood 10/16/2015 8:49 AM CDT Tiffanie Wan M.D. LAB BLOOD ADD-ON Performing Organization Address [facility] Phon e Number POWERCHART Potassium (10/16/2015 8:49 AM CDT) P athologist Signature Potassium, S 4.1 3.6 - 5.2 POWERCHART MMOLL Specimen (Source) Anatomical Collection Method Collection Time Re ceived Time Location / / Volume Laterality Blood 10/16/2015 8:49 AM CDT Tiffanie Wan M.D. LAB BLOOD ADD-ON Performing Organization Address [facility] Phon e Number POWERCHART Sodium (10/16/2015 8:49 AM CDT) P athologist Signature Sodium, S 140 135 - 145 POWERCHART MMOLL Specimen (Source) Anatomical Collection Method Collection Time Re ceived Time Location / / Volume Laterality Blood 10/16/2015 8:49 AM CDT Tiffanie Wan M.D. LAB BLOOD ADD-ON Performing Organization Address [facility] Phon e Number POWERCHART documented in this encounter Visit Diagnoses Not on filedocumented in this encounter Additional Health Concerns Assessment Noted Time PHQ-9 Depression Total Score: 3 05/30/2015 10:21 AM CS T documented as of this encounter
--- OUTSIDE RECORDS SUMMARY | 2022-04-13 12:39 | XMS_ITS | Encounter Summary ---
:1955 Author Organization [facility] Address [address] [place] [address] Care Team Providers Name Role Phone Unavailable Primary Care Provider Unavailable Encounter Details Date Type Department Care Team Description 08/21/2015 Hospital Encounter HX [facility] Dari Wan M.D. 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 [address] [place] [phone] 04/25/2022 Office Visit Otorhinolaryngology Dex Matta APRN, C.N.P., M.S.N. [address] [place] [phone] 05/08/2022 Appointment Laboratory Medicine Angélica Granger P.A.-C. [address] [place] [phone] 05/08/2022 Clinical Admitting/Central Communication Scheduling 05/10/2022 Appointment Radiology Jeremie Rose M.D. [address] [place] [phone] 05/10/2022 Comprehensive Visit Orthopedic Surgery Warner Graves M.D. [address] [place] [phone] 05/22/2022 Appointment Laboratory Medicine Angélica Granger P.A.-C. [address] [place] [phone] 06/05/2022 Appointment Laboratory Medicine Angélica Granger P.A.-C. [address] [place] [phone] 06/19/2022 Appointment Laboratory Medicine Angélica Granger P.A.-C. [address] [place] [phone] 07/03/2022 Appointment Laboratory Medicine Angélica Granger P.A.-C. [address] [place] [phone] 07/17/2022 Appointment Laboratory Medicine Angélica Granger P.A.-C. [address] [place] [phone] 07/31/2022 Appointment Laboratory Medicine Angélica Granger P.A.-C. [address] [place] [phone] 08/14/2022 Appointment Laboratory Medicine EmilieAngélica wilcox Edmundo Stern [address] [place] [phone] 08/28/2022 Appointment Laboratory Medicine Angélica GrangerJennifer. [address] [place] [phone] documented as of this encounter Procedures Procedure Name Priority Date/Time Associated Comments Diagnosis GLUCOSE, P Routine 08/21/2015 9:43 Results for this AM TITLE CLOSER procedure are i n the results section. AUTOMATED DIFFERENTIAL, Routine 08/21/2015 9:43 R esults for this B AM TITLE CLOSER procedure are i n the results section. CBC WITH DIFFERENTIAL, B Routine 08/21/2015 9:43 Results for this AM TITLE CLOSER procedure are i n the results section. ASPARTATE Routine 08/21/2015 9:43 Results for this AMINOTRANSFERASE (AST), AM TITLE CLOSER proc edure are in S/P the results section. SODIUM, S/P Routine 08/21/2015 9:43 Results for this AM TITLE CLOSER procedure are i n the results section. POTASSIUM, S/P Routine 08/21/2015 9:43 Results fo r this AM TITLE CLOSER procedure are i n the results section. ALKALINE PHOSPHATASE, Routine 08/21/2015 9:43 Res ults for this S/P AM TITLE CLOSER procedure are i n the results section. BILIRUBIN, TOT, S/P Routine 08/21/2015 9:43 Resul ts for this AM TITLE CLOSER procedure are i n the results section. documented in this encounter Results Automated Differential (08/21/2015 9:43 AM TITLE CLOSER) P athologist Signature Absolute 2.13 1.70 - POWERCHART Neutrophils 7.00 109L Lymphocytes 1.76 0.90 - POWERCHART 2.90 X109L Monocytes 0.59 0.30 - POWERCHART 0.90 X109L Eosinophils 0.23 0.05 - POWERCHART 0.50 X109L Absolute 0.01 0.00 - POWERCHART Basophil 0.30 X109L Specimen Anatomical Collection Method Collection Time Receive d Time (Source) Location / / Volume Laterality Blood 08/21/2015 9:43 AM 02/29/201 6 9:43 TITLE CLOSER AM TITLE CLOSER Tiffanie Wan M.D. LAB BLOOD ADD-ON Performing Organization Address City/State/ZIP Code Phon e Number POWERCHART (ABNORMAL) CBC with Differential (08/21/2015 9:43 AM TITLE CLOSER) Analysis Performed At Patho logist Time Signature Leukocytes 4.7 3.5 - 10.5 POWERCHART X109L Erythrocytes 4.06 (L) 4.32 - POWERCHART 5.72 C8070C Hemoglobin 12.9 (L) 13.5 - POWERCHART 17.5 GDL Hematocrit 38.8 38.8 - POWERCHART 50.0 MCV 95.6 (H) 81.0 - POWERCHART 95.0 FL Platelet Count 188 150 - 450 POWERCHART X109L HX RDW 13.1 11.8 - POWERCHART 15.6 Specimen (Source) Anatomical Collection Method Collection Time Re ceived Time Location / / Volume Laterality Blood 08/21/2015 9:43 AM TITLE CLOSER Tiffanie Wan M.D. LAB BLOOD ADD-ON Performing Organization Address City/State/ZIP Code Phon e Number POWERCHART Sodium (08/21/2015 9:43 AM TITLE CLOSER) P athologist Signature Sodium, S 142 135 - 145 POWERCHART MMOLL Specimen (Source) Anatomical Collection Method Collection Time Re ceived Time Location / / Volume Laterality Blood 08/21/2015 9:43 AM TITLE CLOSER Tiffanie Wan M.D. LAB BLOOD ADD-ON Performing Organization Address City/State/ZIP Code Phon e Number POWERCHART Potassium (08/21/2015 9:43 AM TITLE CLOSER) P athologist Signature Potassium, S 4.1 3.6 - 5.2 POWERCHART MMOLL Specimen (Source) Anatomical Collection Method Collection Time Re ceived Time Location / / Volume Laterality Blood 08/21/2015 9:43 AM TITLE CLOSER Tiffanie Wan M.D. LAB BLOOD ADD-ON Performing Organization Address City/State/ZIP Code Phon e Number POWERCHART Glucose (08/21/2015 9:43 AM TITLE CLOSER) P athologist Signature Glucose 109 70 - 139 POWERCHART MGDL Specimen (Source) Anatomical Collection Method Collection Time Re ceived Time Location / / Volume Laterality Blood 08/21/2015 9:43 AM TITLE CLOSER Tiffanie Wan M.D. LAB BLOOD ADD-ON Performing Organization Address City/State/ZIP Code Phon e Number POWERCHART Bilirubin, Total (08/21/2015 9:43 AM TITLE CLOSER) P athologist Signature Bilirubin, 0.6 0.1 - 1.0 POWERCHART Total, S MGDL Specimen (Source) Anatomical Collection Method Collection Time Re ceived Time Location / / Volume Laterality Blood 08/21/2015 9:43 AM TITLE CLOSER Tiffanie Wan M.D. LAB BLOOD ADD-ON Performing Organization Address City/[facility] Code Phon e Number POWERCHART AST (Aspartate Aminotransferase) (08/21/2015 9:43 AM TITLE CLOSER) [facility] gist Method Time Signature Aspartate 18 8 - 48 POWERCHART Aminotransferase UNITL (AST), S Specimen (Source) Anatomical Collection Method Collection Time Re ceived Time Location / / Volume Laterality Blood 08/21/2015 9:43 AM TITLE CLOSER Tiffanie Wan M.D. LAB BLOOD ADD-ON Performing Organization Address City/[facility]/ZIP Code Phon e Number POWERCHART Alkaline Phosphatase (08/21/2015 9:43 AM TITLE CLOSER) athologist Signature Alkaline 69 45 - 115 POWERCHART Phosphatase, S UNITL Specimen (Source) Anatomical Collection Method Collection Time Re ceived Time Location / / Volume Laterality Blood 08/21/2015 9:43 AM TITLE CLOSER Tiffanie Wan M.D. LAB BLOOD ADD-ON Performing Organization Address City/[facility]/ZIP Code Phon e Number POWERCHART documented in this encounter Visit Diagnoses Not on filedocumented in this encounter Additional Health Concerns Assessment Noted Time PHQ-9 Depression Total Score: 3 05/30/2015 10:21 AM CS T documented as of this encounter
--- OUTSIDE RECORDS SUMMARY | 2022-04-13 12:39 | XMS_ITS | Encounter Summary ---
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 - 07/25/2015 10:44 AM CST *General Message From: KRYSTLE VARGAS ORGAN PIPE FINISHER To: MIRTHA SANTOYO PA-C; Sent: 07/25/2015 10:44:41 MENS LOCKER ROOM ATTENDANT Subject: *General Message Patient was in for B/P check today. B/P 128/75 Pulse 50 Source: [facility] POWERCHART Document Id: [id number] Electronically signed by Conversion, [facility] Cigar Packer And Grader [id number] at 11/16/2016 10:21 AM CDT Miscellaneous - Krystle Vargas CDemetriusMDemetriusADemetrius - 07/25/2015 10:35 AM CST Ambulatory Vitals Height Weight Ambulatory Vitals Height Weight Entered On: 07/25/2015 10:39 MENS LOCKER ROOM ATTENDANT Performed On: 07/25/2015 10:35 MENS LOCKER ROOM ATTENDANT by KRYSTLE VARGAS [facility] Vitals/Ht/Wt Peripheral Pulse Rate : 50 /min (LOW) Systolic Blood Pressure : 128 mmHg Diastolic Blood Pressure : 75 mmHg NIBP Mean : 93 mmHg BP Location : Left upper extremity Blood Pressure Cuff Size : Regular Height : 178 cm(Converted to: 5 ft 10 inch(es), 70 inch(es)) KRYSTLE VARGAS [facility] - 07/25/2015 10:35 MENS LOCKER ROOM ATTENDANT Source: [facility] [employer] LabsCHART Document Id: [id number] MENS LOCKER ROOM ATTENDANT!9 LOCKER ROOM ATTENDANT documented in this encounter Plan of Treatment Upcoming Encounters Date Type Specialty Care Team Description 04/24/2022 Appointment Laboratory Medicine Angélica Granger P.A.-C. [address] [place] [phone] 04/25/2022 Office Visit Otorhinolaryngology Dex Matta APRN, C.N.P., M.S.N. [address] [place] [phone] 05/08/2022 Appointment Laboratory Medicine Angélica Granger P.A.-C. [address] [place] [phone] 05/08/2022 Clinical Admitting/Central Communication Scheduling 05/10/2022 Appointment Radiology Jeremie Rose M.D. [address] [place] [phone] 05/10/2022 Comprehensive Visit Orthopedic Surgery Warner Graves M.D. [address] [place] [phone] 05/22/2022 Appointment Laboratory Medicine Angélica Granger P.A.-C. [address] [place] [phone] 06/05/2022 Appointment Laboratory Medicine Angélica Granger P.A.-C. [address] [place] [phone] 06/19/2022 Appointment Laboratory Medicine Angélica Granger P.A.-C. [address] [place] [phone] 07/03/2022 Appointment Laboratory Medicine Angélica Granger P.A.-C. [address] [place] [phone] 07/17/2022 Appointment Laboratory Medicine Angélica Granger P.A.-C. [address] [place] [phone] 07/31/2022 Appointment Laboratory Medicine Angélica Granger P.A.-C. [address] [place] [phone] 08/14/2022 Appointment Laboratory Medicine Angélica Granger P.A.-C. [address] [place] [phone] 08/28/2022 Appointment Laboratory Medicine Angéilca Granger P.A.-C. [address] [place] [phone] documented as of this encounter Visit Diagnoses Not on filedocumented in this encounter Additional Health Concerns Assessment Noted Time PHQ-9 Depression Total Score: 3 05/30/2015 10:21 AM CS T documented as of this encounter
--- OUTSIDE RECORDS SUMMARY | 2022-04-13 12:39 | XMS_ITS | Encounter Summary ---
:1955 Author Organization [facility] Address [address] [place] [address] Care Team Providers Name Role Phone Unavailable Primary Care Provider Unavailable Encounter Details Date Type Department Care Team Description 10/04/2015 Hospital Encounter HX [facility] Kg Santoyo P.A.-C. 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 - 10/04/2015 2:33 PM CDT [id number] CHIEF COMPLAINT/REASON FOR VISIT Sinus congestion. HISTORY OF PRESENT ILLNESS Bruce is a 60-year-old male who I recently diagnosed with sinusitis. I treated him with Augmentin. He contacted his liver coordinator because of his liver transplant and apparently they want them to beon a cephalosporin which he took and then developed Clostridium difficile. They wanted him to have astool specimen which was done and this was positive. Now they are treating him with metronidazole hestill is having sinus congestion. He is wondering if anything else should be done about that. VITAL SIGNS Noted in the EMR. PHYSICAL EXAMINATION GENERAL: He appears in no acute distress. ENT: TMs no erythema. Throat no erythema. HEART: Regular rate and rhythm. No murmurs. LUNGS: Clear to auscultation. IMPRESSION/REPORT/PLAN 1. Sinus congestion. Certainly this could be allergic rhinitis. We talked about potential treatment options. He is going to try antihistamines to see if he can get some benefit from nonsedating antihistamine such as Zyrtec or Claritin or Chrissy. If his symptoms worsen or not improve, he will let us know. 2. Clostridium difficile. He will currently finish the metronidazole. He is going to try some probiotics. He is going to try some yogurt or possibly some kefir and if his symptoms worsen or do not improve, he will notify us. Otherwise, follow up as needed. Mirtha Santoyo PA-C/juliann Electronically Signed By: MIRTHA SANTOYO PA-C On: 10/05/2015 08:44 AM Source: [facility] MHSDOLBEYNONRADSYS Document Id: [id number] documented in this encounter Miscellaneous Notes Miscellaneous - Betty Lipscomb, RDemetriusN. - 08/27/2016 4:38 PM CST *Medication Refill Msg Document Contains Addenda Addendum by BETTY LIPSCOMB RN on August 28, 2016 10:28:07 CLOTH GRADER informed pharmacy Addendum by MIRTHA SANTOYO PA-C on August 28, 2016 10:18:12 CLOTH GRADER From: MIRTHA SANTOYO PA-C To: BETTY LIPSCOMB RN; Sent: 08/28/2016 10:18:12 CLOTH GRADER Subject: RE: *Medication Refill Msg He follows in [place] for this and gets it filled down there From: BETTY LIPSCOMB RN To: MIRTHA SANTOYO PA-C; Sent: 08/27/2016 16:38:28 CLOTH GRADER Subject: *Medication Refill Msg Caller is: ( ) Patient ( ) Mother ( ) Father ( ) Spouse ( ) Daughter ( ) Son ( ) Pharmacy ( ) Other: Provider: Pharmacy: [facility] Name of Medications Needing Refill: tacrolimus 0.5mg (half MG) - take 3 caps po every 12 hours Last Refill Date: 11-29-15 #540 Additional Information: Last / Future Appointment: Disposition: ( ) Send to Pharmacy ( ) Call to Pharmacy ( ) 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 [place] Translator And Interpreter [id number] at 11/16/2016 8:27 PM CDT Miscellaneous - Mirtha Santoyo P.A.-C. - 10/04/2015 3:16 PM CDT Ambulatory Patient Summary [address] [id number] Visit Information Name: BRUCE SINGH [facility] Number: [id number] Current Date: 10/04/2015 15:16:16 Physicians Attending Provider: MIRTHA SANTOYO PA-C Primary [...] nasal (Flonase 50 mcg/inh nasal spray) 2 [place](s), Nasal, once a day New Routed to [address] [id number] lamoTRIgine (lamoTRIgine 100 mg oral tablet) 1 [...] the Following Medications: Medication list as of 10-04-15 15:16 Attention: If you have any medications at [...] Electronically Signed By: MIRTHA SANTOYO PA-C Signed On:04-OCT-2015 15:16:00 Your Allergies & Intolerances Substance Reaction Symptoms [...] if you dont have one. Go to [email or web address] and click on Create Your Account. Then, follow the directions to complete the online form. Youll be asked for your [facility] number which you can find at the top of this document. Your Goals/Additional instructions: Source: [facility] POWERCHART Document Id: [id number] Miscellaneous - Mirtha Santoyo P.A.-C. - 10/04/2015 3:16 PM CDT Ambulatory Discharge Medication List [address] [id number] Visit Information Name: BRUCE SINGH [facility] Number: [id number] Visit Date: 10/04/2015 15:16:16 Attending Provider: MIRTHA SANTOYO PA-C Primary Care Provider: MIRTHA SANTOYO PA-C BRUCE SINGH ELICEO has been given the following list of [...] nasal (Flonase 50 mcg/inh nasal spray) 2 [place](s), Nasal, once a day New Routed to [address] [id number] lamoTRIgine (lamoTRIgine 100 mg oral tablet) 1 [...] the Following Medications: Medication list as of 10-04-15 15:16 Attention: If you have any medications at [...] Electronically Signed By: MIRTHA SANTOYO PA-C Signed On:04-OCT-2015 15:16:00 Additional Information: Source: [facility] POWERCHART Document Id: [id number] Miscellaneous - Eugenia Hong, L.P.N. - 10/04/2015 2:44 PM CDT Adult Document Control Clerk Intake/History Adult Document Control Clerk Intake/History Entered On: 10/04/2015 14:47 CDT Performed On: 10/04/2015 14:44 CDT by EUGENIA HONG LPN Intake Chief Complaint : sinus and bronchial issues Temperature Core : 37.0 DegC(Converted to: 98.6 DegF) Peripheral Pulse Rate : 68 /min Respiratory Rate : 16 /min Systolic Blood Pressure : 130 mmHg Diastolic Blood Pressure : 62 mmHg NIBP Mean : 85 mmHg BP Location : Left upper extremity Blood Pressure Cuff Size : Large Height : 178 cm(Converted to: 5 ft 10 inch(es), 70 inch(es)) Actual Weight : 87 kg(Converted to: 191 lb 13 oz) Weight Source : Standing scale Dosing Weight Clinic : 87 kg Clinic BSA : 2.07 Body Mass Index : 27.46 kg/m2 EUGENIA HONG LPN - 10/04/2015 14:44 CDT General Info Information Given By : Patient Languages : Egyptian Is Patient Female and 13-50 no hysterectomy : EUGENIA Castro LPN - 10/04/2015 14:44 CDT Subjective Pain Symptoms : EUGENIA Castro LPN - 10/04/2015 14:44 CDT Dependent Habits Exposure to Tobacco Smoke : Care provider denies smoking in home, Other: no smoke Smoking Status : Never smoker Tobacco 2A : No Tobacco Use/Currently Using : No Tobacco Use/Last 30 Days : No Tobacco Use/Last 12 months : EUGENIA Castro LPN - 10/04/2015 14:44 CDT Source: [facility] Document Id: [id number] CDT!30 documented in this encounter Plan of Treatment Upcoming Encounters Date Type Specialty Care Team Description 04/24/2022 Appointment Laboratory Medicine Angélica Granger P.A.-C. [address] [place] [phone] 04/25/2022 Office Visit Otorhinolaryngology Dex Matta APRN, C.N.P., M.S.N. [address] [place] [phone] 05/08/2022 Appointment Laboratory Medicine Angélica Granger P.A.-C. [address] [place] [phone] 05/08/2022 Clinical Admitting/Central Communication Scheduling 05/10/2022 Appointment Radiology Jeremie Rose M.D. [address] [place] [phone] 05/10/2022 Comprehensive Visit Orthopedic Surgery Warner Graves M.D. [address] [place] [phone] 05/22/2022 Appointment Laboratory Medicine Angélica Granger P.A.-C. [address] [place] [phone] 06/05/2022 Appointment Laboratory Medicine Angélica Granger P.A.-C. [address] [place] [phone] 06/19/2022 Appointment Laboratory Medicine Angélica Granger P.A.-C. [address] [place] [phone] 07/03/2022 Appointment Laboratory Medicine Angélica Granger P.A.-C. [address] [place] [phone] 07/17/2022 Appointment Laboratory Medicine Angélica Granger P.A.-C. [address] [place] [phone] 07/31/2022 Appointment Laboratory Medicine Angélica Granger P.A.-C. [address] [place] [phone] 08/14/2022 Appointment Laboratory Medicine Angélica Granger P.A.-C. [address] [place] [phone] 08/28/2022 Appointment Laboratory Medicine Angélica Granger P.A.-C. [address] [place] [phone] documented as of this encounter Visit Diagnoses Not on filedocumented in this encounter Additional Health Concerns Assessment Noted Time PHQ-9 Depression Total Score: 3 05/30/2015 10:21 AM CS T documented as of this encounter
--- OUTSIDE RECORDS SUMMARY | 2022-04-13 12:39 | XMS_ITS | Encounter Summary ---
:1955 Author Organization [facility] Address [address] [place] [address] Care Team Providers Name Role Phone Unavailable Primary Care Provider Unavailable Encounter Details Date Type Department Care Team Description 09/18/2015 Hospital Encounter HX [facility] Kg Medina P.A.-C. 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 [address] [place] [phone] 04/25/2022 Office Visit Otorhinolaryngology Dex Matta APRN, C.N.P., M.S.N. [address] [place] [phone] 05/08/2022 Appointment Laboratory Medicine Angélica Granger P.A.-C. [address] [place] [phone] 05/08/2022 Clinical Admitting/Central Communication Scheduling 05/10/2022 Appointment Radiology Jeremie Rose M.D. [address] [place] [phone] 05/10/2022 Comprehensive Visit Orthopedic Surgery Warner Graves M.D. [address] [place] [phone] 05/22/2022 Appointment Laboratory Medicine Angélica Granger P.A.-C. [address] [place] [phone] 06/05/2022 Appointment Laboratory Medicine Angélica Granger P.A.-C. [address] [place] [phone] 06/19/2022 Appointment Laboratory Medicine Angélica Granger P.A.-C. [address] [place] [phone] 07/03/2022 Appointment Laboratory Medicine Angélica Granger P.A.-C. [address] [place] [phone] 07/17/2022 Appointment Laboratory Medicine Angélica Granger P.A.-C. [address] [place] [phone] 07/31/2022 Appointment Laboratory Medicine Angélica Granger P.A.-C. [address] [place] [phone] 08/14/2022 Appointment Laboratory Medicine Angélica GrangerJennifer. [address] [place] [phone] 08/28/2022 Appointment Laboratory Medicine Angélica GrangerJennifer. [address] [place] [phone] documented as of this encounter Procedures Procedure Name Priority Date/Time Associated Comments Diagnosis GLUCOSE, P Routine 09/18/2015 9:26 Results for this AM CDT procedure are i n the results section. AUTOMATED DIFFERENTIAL, Routine 09/18/2015 9:26 R esults for this B AM CDT procedure are i n the results section. CBC WITH DIFFERENTIAL, B Routine 09/18/2015 9:26 Results for this AM CDT procedure are i n the results section. ALANINE AMINOTRANSFERASE Routine 09/18/2015 9:26 Results for this (ALT), S/P AM CDT procedure are i n the results section. ASPARTATE Routine 09/18/2015 9:26 Results for this AMINOTRANSFERASE (AST), AM CDT proc edure are in S/P the results section. SODIUM, S/P Routine 09/18/2015 9:26 Results for this AM CDT procedure are i n the results section. POTASSIUM, S/P Routine 09/18/2015 9:26 Results fo r this AM CDT procedure are i n the results section. ALKALINE PHOSPHATASE, Routine 09/18/2015 9:26 Res ults for this S/P AM CDT procedure are i n the results section. CREATININE WITH EGFR, Routine 09/18/2015 9:26 Res ults for this S/P AM CDT procedure are i n the results section. BILIRUBIN, TOT, S/P Routine 09/18/2015 9:26 Resul ts for this AM CDT procedure are i n the results section. documented in this encounter Results Automated Differential (09/18/2015 9:26 AM CDT) P athologist Signature Absolute 4.38 1.70 - POWERCHART Neutrophils 7.00 109L Lymphocytes 2.28 0.90 - POWERCHART 2.90 X109L Monocytes 0.77 0.30 - POWERCHART 0.90 X109L Eosinophils 0.21 0.05 - POWERCHART 0.50 X109L Absolute 0.02 0.00 - POWERCHART Basophil 0.30 X109L Specimen Anatomical Collection Method Collection Time Receive d Time (Source) Location / / Volume Laterality Blood 09/18/2015 9:26 AM 201 6 9:26 CDT AM CDT Tiffanie Wan M.D. LAB BLOOD ADD-ON Performing Organization Address City/State/ZIP Code Phon e Number POWERCHART (ABNORMAL) CBC with Differential (09/18/2015 9:26 AM CDT) Analysis Performed At Patho logist Time Signature Leukocytes 7.7 3.5 - 10.5 POWERCHART X109L Erythrocytes 4.05 (L) 4.32 - POWERCHART 5.72 V2198K Hemoglobin 12.9 (L) 13.5 - POWERCHART 17.5 GDL Hematocrit 38.9 38.8 - POWERCHART 50.0 MCV 96.0 (H) 81.0 - POWERCHART 95.0 FL Platelet Count 212 150 - 450 POWERCHART X109L HX RDW 12.8 11.8 - POWERCHART 15.6 Specimen (Source) Anatomical Collection Method Collection Time Re ceived Time Location / / Volume Laterality Blood 09/18/2015 9:26 AM CDT Tiffanie Wan M.D. LAB BLOOD ADD-ON Performing Organization Address City/State/ZIP Code Phon e Number POWERCHART AST (Aspartate Aminotransferase) (09/18/2015 9:26 AM CDT) Patholo gist Method Time Signature Aspartate 19 8 - 48 POWERCHART Aminotransferase UNITL (AST), S Specimen (Source) Anatomical Collection Method Collection Time Re ceived Time Location / / Volume Laterality Blood 09/18/2015 9:26 AM CDT Tiffanie Wan M.D. LAB BLOOD ADD-ON Performing Organization Address City/State/ZIP Code Phon e Number POWERCHART Bilirubin, Total (09/18/2015 9:26 AM CDT) P athologist Signature Bilirubin, 0.5 0.1 - 1.0 POWERCHART Total, S MGDL Specimen (Source) Anatomical Collection Method Collection Time Re ceived Time Location / / Volume Laterality Blood 09/18/2015 9:26 AM CDT Tiffanie Wan M.D. LAB BLOOD ADD-ON Performing Organization Address City/State/ZIP Code Phon e Number POWERCHART ALT (Alanine Aminotransferase) (09/18/2015 9:26 AM CDT) P athologist Signature Alanine 17 7 - 55 POWERCHART Amniotransferas UNITL e, LD Specimen (Source) Anatomical Collection Method Collection Time Re ceived Time Location / / Volume Laterality Blood 09/18/2015 9:26 AM CDT Tiffanie Wan M.D. LAB BLOOD ADD-ON Performing Organization Address City/State/ZIP Code Phon e Number POWERCHART Glucose (09/18/2015 9:26 AM CDT) P athologist Signature Glucose 108 70 - 139 POWERCHART MGDL Specimen (Source) Anatomical Collection Method Collection Time Re ceived Time Location / / Volume Laterality Blood 09/18/2015 9:26 AM CDT Tiffanie Wan M.D. LAB BLOOD ADD-ON Performing Organization Address City/State/ZIP Code Phon e Number POWERCHART Alkaline Phosphatase (09/18/2015 9:26 AM CDT) P athologist Signature Alkaline 78 45 - 115 POWERCHART Phosphatase, S UNITL Specimen (Source) Anatomical Collection Method Collection Time Re ceived Time Location / / Volume Laterality Blood 09/18/2015 9:26 AM CDT Tiffanie Wan M.D. LAB BLOOD ADD-ON Performing Organization Address City/State/ZIP Code Phon e Number POWERCHART (ABNORMAL) Creatinine with eGFR (09/18/2015 9:26 AM CDT) P athologist Signature Creatinine 2.0 (H) 0.8 - 1.3 POWERCHART MGDL HXeGFR (MDRD) 34 (L) >=60 POWERCHART [id number] eGFR 41 (L) >=60 POWERCHART Black/ [id number] Macanese Specimen (Source) Anatomical Collection Method Collection Time Re ceived Time Location / / Volume Laterality Blood 09/18/2015 9:26 AM CDT Tiffanie Wan M.D. LAB BLOOD ADD-ON Performing Organization Address City/State/ZIP Code Phon e Number POWERCHART Potassium (09/18/2015 9:26 AM CDT) P athologist Signature Potassium, S 3.9 3.6 - 5.2 POWERCHART MMOLL Specimen (Source) Anatomical Collection Method Collection Time Re ceived Time Location / / Volume Laterality Blood 09/18/2015 9:26 AM CDT Tiffanie Wan M.D. LAB BLOOD ADD-ON Performing Organization Address City/[facility] Phon e Number POWERCHART Sodium (09/18/2015 9:26 AM CDT) P athologist Signature Sodium, S 140 135 - 145 POWERCHART MMOLL Specimen (Source) Anatomical Collection Method Collection Time Re ceived Time Location / / Volume Laterality Blood 09/18/2015 9:26 AM CDT Tiffanie Wan M.D. LAB BLOOD ADD-ON Performing Organization Address City/[facility] Phon e Number POWERCHART documented in this encounter Visit Diagnoses Not on filedocumented in this encounter Additional Health Concerns Assessment Noted Time PHQ-9 Depression Total Score: 3 05/30/2015 10:21 AM CS T documented as of this encounter
--- OUTSIDE RECORDS SUMMARY | 2022-04-13 12:39 | XMS_ITS | Encounter Summary ---
:1955 Author Organization [facility] Address [address] [place] [address] Care Team Providers Name Role Phone Unavailable Primary Care Provider Unavailable Encounter Details Date Type Department Care Team Description 10/02/2015 Hospital Encounter HX [facility] Dari Wan M.D. 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 [address] [place] [phone] 04/25/2022 Office Visit Otorhinolaryngology Dex Matta APRN, C.N.P., M.S.N. [address] [place] [phone] 05/08/2022 Appointment Laboratory Medicine GunAngélica wilcox P.A.-C. [address] [place] [phone] 05/08/2022 Clinical Admitting/Central Communication Scheduling 05/10/2022 Appointment Radiology Jeremie Rose M.D. [address] [place] [phone] 05/10/2022 Comprehensive Visit Orthopedic Surgery Warner Graves M.D. [address] [place] [phone] 05/22/2022 Appointment Laboratory Medicine Angélica Granger P.A.-C. [address] [place] [phone] 06/05/2022 Appointment Laboratory Medicine Angélica Granger P.A.-C. [address] [place] [phone] 06/19/2022 Appointment Laboratory Medicine Angélica Granger P.A.-C. [address] [place] [phone] 07/03/2022 Appointment Laboratory Medicine Angélica Granger P.A.-C. [address] [place] [phone] 07/17/2022 Appointment Laboratory Medicine Angélica Granger P.A.-C. [address] [place] [phone] 07/31/2022 Appointment Laboratory Medicine Angélica Granger P.A.-C. [address] [place] [phone] 08/14/2022 Appointment Laboratory Medicine Angélica Granger Edmundo Stern [address] [place] [phone] 08/28/2022 Appointment Laboratory Medicine Angélica Granger Edmundo Stern [address] [place] [phone] documented as of this encounter Procedures Procedure Name Priority Date/Time Associated Diagnosis Comme nts GI PATHOGEN PANEL, Routine 10/02/2015 12:47 PM Re sults for this PCR, F CDT procedure are i n the results section. documented in this encounter Results (ABNORMAL) GI Pathogen Panel, PCR, F (10/02/2015 12:47 PM CDT) Component Value Ref Test Analysis Performed At [facility] Range Method Time Signature HXC Difficile (POSITIVE) POWERCHART Toxin DNA by PCR HXFinal Positive for POWERCHART Toxigenic Clostridium difficile by Nucleic Acid Amplification HXFinal Reference: POWERCHART Negative Specimen (Source) Anatomical Collection Method Collection Time Re ceived Time Location / / Volume Laterality Stool 10/02/2015 12:47 PM CDT Tiffanie Wan M.D. LAB MICROBIOLOGY - GENERAL O RDERABLES Performing Organization Address City/State/ZIP Code Phon e Number POWERCHART documented in this encounter Visit Diagnoses Not on filedocumented in this encounter Additional Health Concerns Assessment Noted Time PHQ-9 Depression Total Score: 3 05/30/2015 10:21 AM CS T documented as of this encounter
--- OUTSIDE RECORDS SUMMARY | 2022-04-13 12:40 | XMS_ITS | Encounter Summary ---
:1955 Author Organization [facility] Address [address] [place] [address] Care Team Providers Name Role Phone Unavailable Primary Care Provider Unavailable Encounter Details Date Type Department Care Team Description 09/23/2013 Hospital Encounter HX NO MAPPING Mercedez Jay, RDemetriusN . 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 Pain. No more than 2000 mg per day. cholecalciferol (VITAMIN Take 1 tablet by 0 09/0311/13/2020 D3) 2,000 Unit tablet mouth daily. cholecalciferol (VITAMIN Take 1 capsule by 0 02/2105/24/2021 D3) 50 mcg (2,000 Unit) mouth daily. capsule multivitamin tablet Take 1 tablet by 0 06/18/2013 10/12/2021 mouth daily. Maintenance documented as of this encounter Plan of Treatment Upcoming Encounters Date Type Specialty Care Team Description 04/24/2022 Appointment Laboratory Medicine Angélica Granger, Evan.A.-C. [address] [place] [phone] 04/25/2022 Office Visit Otorhinolaryngology Dex Matta APRN, C.N.P., M.S.N. [address] [place] [phone] 05/08/2022 Appointment Laboratory Medicine Angéilca Granger P.A.-CDemetrius [address] [place] [phone] 05/08/2022 Clinical Admitting/Central Communication Scheduling 05/10/2022 Appointment Radiology Jeremie Rose M.D. [address] [place] [phone] 05/10/2022 Comprehensive Visit Orthopedic Surgery Warner Graves M.D. [address] [place] [phone] 05/22/2022 Appointment Laboratory Medicine Angélica Granger P.A.-C. [address] [place] [phone] 06/05/2022 Appointment Laboratory Medicine Angélica Granger P.A.-C. [address] [place] [phone] 06/19/2022 Appointment Laboratory Medicine Angélica Granger P.A.-C. [address] [place] [phone] 07/03/2022 Appointment Laboratory Medicine Angélica Granger P.A.-C. [address] [place] [phone] 07/17/2022 Appointment Laboratory Medicine Angélica Granger P.A.-C. [address] [place] [phone] 07/31/2022 Appointment Laboratory Medicine Angélica Granger P.A.-C. [address] [place] [phone] 08/14/2022 Appointment Laboratory Angélica Royal P.A.-C. [address] [place] [phone] 08/28/2022 Appointment Laboratory Medicine Angélica Granger P.A.-C. [address] [place] [phone] documented as of this encounter Visit Diagnoses Not on filedocumented in this encounter Additional Health Concerns Assessment Noted Time PHQ-9 Depression Total Score: 4 08/11/2013 10:10 AM CS T documented as of this encounter
--- OUTSIDE RECORDS SUMMARY | 2022-04-13 12:40 | XMS_ITS | Encounter Summary ---
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 [address] [place] [phone] 04/25/2022 Office Visit Otorhinolaryngology Dex Matta, RAMONA, C.N.P., M.S.N. [address] [place] [address] [phone] 05/08/2022 Appointment Laboratory Medicine Angélica Granger, P.A.-C. [address] [place] [phone] 05/08/2022 Clinical Admitting/Central Communication Scheduling 05/10/2022 Appointment Radiology Jeremie Rose M.D. [address] [place] [phone] 05/10/2022 Comprehensive Visit Orthopedic Surgery Warner Graves M.D. [address] [place] [phone] 05/22/2022 Appointment Laboratory Medicine Angélica Granger P.A.-C. [address] [place] [phone] 06/05/2022 Appointment Laboratory Medicine Angélica Granger P.A.-C. [address] [place] [phone] 06/19/2022 Appointment Laboratory Angélica Royal P.A.-C. [address] [place] [phone] 07/03/2022 Appointment Laboratory Angélica Royal P.A.-C. [address] [place] [phone] 07/17/2022 Appointment Laboratory Angélica Royal P.A.-C. [address] [place] [phone] 07/31/2022 Appointment Laboratory Angélica Royal P.A.-C. [address] [place] [phone] 08/14/2022 Appointment Laboratory Angélica Royal P.A.-C. [address] [place] [phone] 08/28/2022 Appointment Laboratory Angélica Royal P.A.-C. [address] [place] [phone] documented as of this encounter Visit Diagnoses Not on filedocumented in this encounter Additional Health Concerns Assessment Noted Time PHQ-9 Depression Total Score: 4 10/01/2013 8:05 AM CDT documented as of this encounter
--- OUTSIDE RECORDS SUMMARY | 2022-04-13 12:40 | XMS_ITS | Encounter Summary ---
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 [address] [place] [phone] 04/25/2022 Office Visit Otorhinolaryngology Dex Matta APRN, C.N.P., M.S.N. [address] [place] [address] [phone] 05/08/2022 Appointment Laboratory Medicine Angélica Granger P.A.-C. [address] [place] [address] [phone] 05/08/2022 Clinical Admitting/Central Communication Scheduling 05/10/2022 Appointment Radiology Jeremie Rose M.D. [address] [place] [phone] 05/10/2022 Comprehensive Visit Orthopedic Surgery Warner Graves M.D. [address] [place] [address] [phone] 05/22/2022 Appointment Laboratory Medicine Angélica Granger P.A.-CDemetrius [address] [place] [address] [phone] 06/05/2022 Appointment Laboratory Medicine Angélica Granger P.A.-CDemetrius [address] [place] [address] [phone] 06/19/2022 Appointment Laboratory Medicine Angélica Granger P.A.-C. [address] [place] [phone] 07/03/2022 Appointment Laboratory Medicine Angélica Granger P.A.-C. [address] [place] [phone] 07/17/2022 Appointment Laboratory Medicine Angélica Granger P.A.-C. [address] [place] [phone] 07/31/2022 Appointment Laboratory Medicine Angélica Granger P.A.-C. [address] [place] [phone] 08/14/2022 Appointment Laboratory Medicine Angélica Granger P.A.-C. [address] [place] [phone] 08/28/2022 Appointment Laboratory Medicine Angélica Granger P.A.-C. [address] [place] [phone] documented as of this encounter Visit Diagnoses Not on filedocumented in this encounter Additional Health Concerns Infection Onset Date Last Indicated Resolved Time COVID19 Pending 12/13/2019 12/13/2019 12/14/2019 11:03 AM CDT COVID19 Pending 01/26/2020 01/27/2020 01/28/2020 12:12 AM CDT Assessment Noted Time PHQ-9 Depression Total Score: 1 12/01/2013 10:25 AM CD T documented as of this encounter Care Teams Hand Compositor Relationship Specialty Start Date End Date Elsewhere, Pcp PCP - General Family Medicine 07/29/17 [facility] - Laboratory Medicine 04/12/[address] [address] documented as of this encounter
--- OUTSIDE RECORDS SUMMARY | 2022-04-13 12:40 | XMS_ITS | Encounter Summary ---
:1955 Author Organization [facility] Address [address] [place] [address] Care Team Providers Name Role Phone Unavailable Primary Care Provider Unavailable Encounter Details Date Type Department Care Team Description 07/02/2013 Hospital Encounter HX NO MAPPING Fadumo Morgan M .D. 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 Pain. No more than 2000 mg per day. cholecalciferol (VITAMIN Take 1 capsule by 0 02/2105/24/2021 D3) 50 mcg (2,000 Unit) mouth daily. capsule multivitamin tablet Take 1 tablet by 0 06/18/2013 10/12/2021 mouth daily. Maintenance documented as 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 [address] [place] [phone] 04/25/2022 Office Visit Otorhinolaryngology Dex Matta, RAMONA, C.N.P., M.S.N. [address] [place] [phone] 05/08/2022 Appointment Laboratory Medicine Angélica Granger P.ADemetrius-CDemetrius [address] [place] [phone] 05/08/2022 Clinical Admitting/Central Communication Scheduling 05/10/2022 Appointment Radiology Jeremie Rose M.D. [address] [place] [phone] 05/10/2022 Comprehensive Visit Orthopedic Surgery Warner Graves M.D. [address] [place] [phone] 05/22/2022 Appointment Laboratory Medicine Angélica Granger P.A.-CDemetrius [address] [place] [phone] 06/05/2022 Appointment Laboratory Medicine Angélica Granger P.A.-C. [address] [place] [phone] 06/19/2022 Appointment Laboratory Medicine Angélica Granger P.A.-C. [address] [place] [phone] 07/03/2022 Appointment Laboratory Medicine Angélica Granger P.A.-C. [address] [place] [address] [phone] 07/17/2022 Appointment Laboratory Medicine Angélica Granger P.A.-C. [address] [place] [address] [phone] 07/31/2022 Appointment Laboratory Medicine Angélica Granger P.A.-C. [address] [place] [phone] 08/14/2022 Appointment Laboratory Medicine Angélica Granger P.A.-C. [address] [place] [phone] 08/28/2022 Appointment Laboratory Medicine Angélica Granger P.A.-C. 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
--- OUTSIDE RECORDS SUMMARY | 2022-04-13 12:40 | XMS_ITS | Encounter Summary ---
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 [address] [place] [phone] 04/25/2022 Office Visit Otorhinolaryngology Dex Matta, RAMONA, C.N.P., M.S.N. [address] [place] [address] [phone] 05/08/2022 Appointment Laboratory Medicine Angélica Granger, P.A.-C. [address] [place] [phone] 05/08/2022 Clinical Admitting/Central Communication Scheduling 05/10/2022 Appointment Radiology Jeremie Rose M.D. [address] [place] [phone] 05/10/2022 Comprehensive Visit Orthopedic Surgery Warner Graves M.D. [address] [place] [phone] 05/22/2022 Appointment Laboratory Medicine Angélica Granger P.A.-C. [address] [place] [phone] 06/05/2022 Appointment Laboratory Medicine Angélica Granger P.A.-C. [address] [place] [phone] 06/19/2022 Appointment Laboratory Angélica Royal P.A.-C. [address] [place] [phone] 07/03/2022 Appointment Laboratory Angélica Royal P.A.-C. [address] [place] [phone] 07/17/2022 Appointment Laboratory Angélica Royal P.A.-C. [address] [place] [phone] 07/31/2022 Appointment Laboratory Angélica Royal P.A.-C. [address] [place] [phone] 08/14/2022 Appointment Laboratory Angélica Royal P.A.-C. [address] [place] [phone] 08/28/2022 Appointment Laboratory Angélica Royal P.A.-C. [address] [place] [phone] documented as of this encounter Visit Diagnoses Not on filedocumented in this encounter Additional Health Concerns Assessment Noted Time PHQ-9 Depression Total Score: 4 10/01/2013 8:05 AM CDT documented as of this encounter
--- OUTSIDE RECORDS SUMMARY | 2022-04-13 12:40 | XMS_ITS | Encounter Summary ---
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 [address] [place] [phone] 05/08/2022 Appointment Laboratory Medicine Angélica Granger P.A.-CDemetrius [address] [place] [phone] 05/08/2022 Clinical Admitting/Central Communication Scheduling 05/10/2022 Appointment Radiology Jeremie Rose M.D. [address] [place] [phone] 05/10/2022 Comprehensive Visit Orthopedic Surgery Warner Graves M.D. [address] [place] [address] [phone] 05/22/2022 Appointment Laboratory Medicine Angélica Granger P.A.-C. [address] [place] [phone] 06/05/2022 Appointment Laboratory Medicine Angélica Granger P.A.-C. [address] [place] [phone] 06/19/2022 Appointment Laboratory Medicine Angélica Granger P.A.-C. [address] [place] [phone] 07/03/2022 Appointment Laboratory Medicine Angélica Granger P.A.-C. [address] [place] [phone] 07/17/2022 Appointment Laboratory Medicine Angélica Granger P.A.-C. [address] [place] [phone] 07/31/2022 Appointment Laboratory Medicine Angélica Granger P.A.-C. [address] [place] [phone] 08/14/2022 Appointment Laboratory Medicine Angélica Granger P.A.-C. [address] [place] [phone] 08/28/2022 Appointment Laboratory Medicine Angélica Granger P.A.-C. [address] [place] [phone] documented as of this encounter Visit Diagnoses Not on filedocumented in this encounter Additional Health Concerns Assessment Noted Time PHQ-9 Depression Total Score: 4 08/11/2013 10:10 AM CS T documented as of this encounter
--- OUTSIDE RECORDS SUMMARY | 2022-04-13 12:40 | XMS_ITS | Encounter Summary ---
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 [address] [place] [phone] 04/25/2022 Office Visit Otorhinolaryngology Dex Matta APRN, C.N.P., M.S.N. [address] [place] [address] [phone] 05/08/2022 Appointment Laboratory Medicine Angélica Granger P.A.-C. [address] [place] [address] [phone] 05/08/2022 Clinical Admitting/Central Communication Scheduling 05/10/2022 Appointment Radiology Jeremie Rose M.D. [address] [place] [phone] 05/10/2022 Comprehensive Visit Orthopedic Surgery Warner Graves M.D. [address] [place] [address] [phone] 05/22/2022 Appointment Laboratory Medicine Angélica Granger P.A.-CDemetrius [address] [place] [address] [phone] 06/05/2022 Appointment Laboratory Medicine Angélica Granger P.A.-CDemetrius [address] [place] [address] [phone] 06/19/2022 Appointment Laboratory Medicine Angélica Granger P.A.-C. [address] [place] [phone] 07/03/2022 Appointment Laboratory Medicine Angélica Granger P.A.-C. [address] [place] [phone] 07/17/2022 Appointment Laboratory Medicine Angélica Granger P.A.-C. [address] [place] [phone] 07/31/2022 Appointment Laboratory Medicine Angélica Granger P.A.-C. [address] [place] [phone] 08/14/2022 Appointment Laboratory Medicine Angélica Granger P.A.-C. [address] [place] [phone] 08/28/2022 Appointment Laboratory Medicine Angélica Granger P.A.-C. [address] [place] [phone] documented as of this encounter Visit Diagnoses Not on filedocumented in this encounter Additional Health Concerns Infection Onset Date Last Indicated Resolved Time COVID19 Pending 12/13/2019 12/13/2019 12/14/2019 11:03 AM CDT COVID19 Pending 01/26/2020 01/27/2020 01/28/2020 12:12 AM CDT Assessment Noted Time PHQ-9 Depression Total Score: 4 03/02/2014 10:29 AM CD T documented as of this encounter Care Teams Entertainment Usher Relationship Specialty Start Date End Date Elsewhere, Pcp PCP - General Family Medicine 07/29/17 [facility] - Laboratory Medicine 04/12/[address] [address] documented as of this encounter
--- OUTSIDE RECORDS SUMMARY | 2022-04-13 12:40 | XMS_ITS | Encounter Summary ---
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 documented as of this encounter Last Filed Vital Signs Vital Sign Reading Time Taken Comments Blood Pressure 158/84 07/07/2014 11:43 AM MST Pulse 59 07/07/2014 11:43 AM MST Temperature - - Respiratory Rate 18 07/07/2014 11:43 AM MST Oxygen Saturation - - Inhaled Oxygen Concentration - - Weight 86.7 kg (191 lb 2.2 oz) 07/07/2014 5:17 AM MST Height 177 cm (5' 9.69) 07/05/2014 5:24 PM MST Body Mass Index 27.67 07/05/2014 5:24 PM MST documented in this encounter Discharge Summaries Conversion, Historical Provider Ser - 07/07/2014 2:11 PM MST Result Type: Hosp Discharge Instructions Result Date: 07 July 2014 14:11 MST Result Status: Modified- Result Title: Hosp Discharge Instructions Performed By: Shukri ELMORE, C.M.S.R.NDemetrius, Lesa Redman on 07 July 2014 14:11 MST Verified By: Shukri ELMORE, Arley.M.S.R.NDemetrius, Lesa Redman on 07 July 2014 14:11 MST *Final* Hosp Discharge Instructions [facility] Patient Discharge Instructions Name:JOSE ALEJANDRO CUELLO Current Date: 07-Jul-2014 14:11:42 : 1955 12:00 AM Allergies: SEROquel; ZyPREXA; citalopram; erythromycin; ciprofloxacin Your safety is our concern. Please bring a current list of your medications and dosages (including jxtc-zec-hirvjpd medicines, vitamins and herbals) or the medication bottles with you for all your [facility] appointments and Emergency Department visits. A Discharge Home Medication List has been givento you. Please refer to this when taking your medications. Patients and families are reminded to discard any old home medication list and provide all current medical providers and retail pharmacies with their updated home medication list. If you smoke or have used nicotine products in the last year, we encourage you to stop. For more information to schedule an outpatient appointment for our smoking cessation/nicotine program please [phone]. It is important to weigh yourself each morning while you are wearing the same amount of clothing. Gaining weight rapidly can be a sign of fluid build up. If you have been diagnosed with congestive heart failure or kidney failure, this can potentially be a serious sign. Follow the diet and activity instructions discussed with your physician. Should you develop ankle swelling or shortness of breath, or if you have any questions or concerns, please call [phone]. This line is open 24 hours a day. When you give your physician's name and your concern, a physician or physician's dental ceramist assistant/nurse practitioner will be notified and will returnyour call to answer your questions. If you need to schedule or reschedule a follow up appointment please call [phone]. If you need to contact your provider with questions or concerns after discharge please call [phone]. You can access parts of your medical record electronically through [facility] Patient Online Services. If you do not have a Patient Online Services account or to log into your account, go to: [email or web address]. If you choose not to establish an online account, you may request copies of your clinical information by calling [phone]. KHUSHBOO Vieira DARYL A, have received the attached list of prescriptions, discharge instructions, and patient education materials and have verbalized understanding: Patient/Responsible Constitution Party Signature Date Relationship to Patient Nurse Signature Date Medications: STARTOFMEDICATIONLIST_ This is your current active medication list based on information provided during your hospitalization. If you have any questions or need additional information about your medications, please contact your primary care provider. CONTINUE taking the following 11 medication(s): ACETAMINOPHEN (TYLENOL 325 MG ORAL TABLET) - 2 tab(s) Orally Every 6 Hours As needed for Pain/Fever Take your next dose: 07/07/2014 available at any time, no doses given today AMLODIPINE (NORVASC) - 10 mg Orally At Bedtime Take your next dose: 07/07/2014 at bedtime ASPIRIN (ASPIRIN) - 81 mg Orally Every Day Take your next dose: 07/08/2014 at 9 am CALCIUM AND VITAMIN D (CALCIUM CITRATE + VITAMIN D) - 2 tab(s) Orally Twice a Day Take your next dose: 07/07/2014 at 9 pm CHOLECALCIFEROL (VITAMIN D3 2000 INTL UNITS ORAL CAPSULE) - 1 cap Orally Every Day Take your next dose: 07/08/2014 at 9 am CLONAZEPAM (CLONAZEPAM) - 0.5 mg Orally At Bedtime Take your next dose: 07/07/2014 at bedtime LAMOTRIGINE (LAMOTRIGINE) - 200 mg Orally Twice a Day Take your next dose: 07/07/2014 at 9 pm MULTIVITAMIN (MULTIVITAMIN) - 1 tab(s) Orally Every Day Take your next dose: 07/08/2014 at 9 am OMEGA-3 POLYUNSATURATED FATTY ACIDS (FISH OIL) - 1,000 mg Orally Twice a Day Take your next dose: 07/07/2014 at 9 pm TACROLIMUS (TACROLIMUS) - 3 mg Orally Every 12 hours Take your next dose: 07/07/2014 at 9 pm TRAZODONE (TRAZODONE) - 100 mg Orally At Bedtime As needed for Sleep Take your next dose: 07/07/2014 at 9 pm NEW Start taking the following 5 medication(s): AMOXICILLIN-CLAVULANATE (AUGMENTIN 500 MG ORAL TABLET) - 1 tab(s) Orally Every 8 Hours Duration: 7 Day(s) Dispense: 21 Tab Prescription given to patient. Take your next dose: 07/07/2014 at 10 pm then at 6 am, 2 pm, and 10 pm starting 07/08/2014 CHLORHEXIDINE TOPICAL (CHLORHEXIDINE TOPICAL 0.12% ORAL RINSE) - 15 Milliliter Swish and Spit Twice a Day Dispense: 900 mL Prescription given to patient. Take your next dose: 07/07/2014 at 9 m LIDOCAINE TOPICAL (LIDOCAINE VISCOUS 2% MUCOUS MEMBRANE SOLUTION) - 5 Milliliter Swish and Spit Every 3 Hours As needed for Mouth Pain Dispense: 100 mL Prescription given to patient. Take your next dose: 07/07/2014 available at any time OXYCODONE (OXYCODONE 5 MG ORAL TABLET) - 2 tab(s) Orally Every 6 Hours As needed for Pain Moderate Dispense: 10 Tab Prescription given to patient. Take your next dose: 07/07/2014 available at any time, no doses given today PREDNISONE (PREDNISONE 20 MG ORAL TABLET) - 3 tab(s) Orally Every Day With a Meal ; Indications/Special Instructions: take 60mg x2 more days, then 40mg x3 days, then 20mgx3 days, then 10mg x3 days, then 5mg x3 days and stop. Dispense: 41 Tab Prescription given to patient. Take your next dose: 07/08/2014 with breakfast Medication list for discharge reconciliation updated on 07-07-14 13:05 Harshal MCPHERSON MS, RN, Yu German ENDOFMEDICATIONLIST_ MEDICATION SPECIAL INSTRUCTIONS: Discharge Instructions: Hosp Discharge Instruction ([place]) Entered On: 07-Jul-2014 13:03 MST Performed On: 07-Jul-2014 12:58 MST by Harshal MCPHERSON MS, RN, Yu German Interdisciplinary Discharge Instructions [place] 1. Physician Name/Group : f/u with labs next week in [place] 1. Directions for follow up appointment : Patient to call for appointment 2. Physician Name/Group : f/u with Transplant Hepatology in [place] in next 1- 2 weeks 2. Directions for follow up appointment : Itinerary to be sent Seek emergency treatment for : Chest Pain, Shortness of Breath, Chills, Pain not relieved by medication Call your physician for : Temperature > 100.4 (38 celsius) Contact information/Calling instructions : Liver Transplant Nurse Coordinator, Other: [facility] Real Estate Lawyer Harshal MCPHERSON MS, RN, Yu German - 07-Jul-2014 12:58 MST Diet Discharge Diet : Regular Harshal MCPHERSON MS, RN, Yu German - 07-Jul-2014 12:58 MST Activity Instructions ([place]) General Activity Limitation/Instructions : No restrictions Harshal MCPHERSON MS, RN, Yu German - 07-Jul-2014 12:58 [facility] Special Instructions ([place]) Pain Management Discharge Instructions : Please do not use over the counter NSAIDS such as Ibuprofen, DO NOT drive or operate motor vehicle or equipment for 24 hours or until prescription pain medications have been stopped Medication General Instructions : Do NOT exceed 3 grams of Acetaminophen in 24 hours, Do NOT take Non-steroidal Anti-inflammatory Drugs(NSAIDs)[e.g.aspirin,ibuprofen,naproxen(also known as Advil,Aleve,M otrin,Ecotrin,Excedrin,etc.] Harshal MCPHERSON MS, RN, Yu German - 07-Jul-2014 12:58 MST End of Discharge Instructions Reference: [facility]-[id number] Yu Caputo APRN, C.N.P., D.N.P., M.S. - 07/07/2014 12:00 AM MST Result Type: Hosp Discharge Summary Result Date: 07 July 2014 00:00 MST Result Status: Auth (Verified) Performed By: Harshal GREENE DNP, MS, CNP,Yu ELMORE on 07 July 2014 14:37 MST Verified By: Harshal GREENE DNP, MS, VIDA,RNYu on 08 July 2014 08:44 MST *Final* [facility] HOSPITAL DISCHARGE SUMMARY Patient Name: Jose Alejandro Cuello Provider Name: Yu Caputo R.N., C.N.PDemetrius : 1955 Attending Phys: Lynn Wen M.D. Age: 58 Admit Date: 07/05/2014 Facility Name: [facility] Discharge Date: 07/07/2014 Service: Transplant-Hepatology Visit Type: Hosp Discharge Summary ATTENDING PHYSICIAN: At the time of discharge, Lynn Wen M.D. PRINCIPAL DIAGNOSIS: 1. Neutropenic fever. SECONDARY DIAGNOSES: 2. Oral lesion. 3. 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 4. Chronic immunosuppression. 5. History of bipolar disorder. 6. Chronic renal insufficiency. HOSPITAL COURSE: Mr. Cuello is an extremely pleasant 58-year-old gentleman status post donor liver transplantation from 1998 for autoimmune hepatitis who then underwent retransplantation on June 13, 2013,for severe ischemic cholangiopathy, all of which were performed at [facility]. Mr. Cuello presented to [facility] Emergency Room on July 05 with worsening left jaw pain over the last 3 weeks with new onset of fever. On exam, the patient was noted to have a large left lower jaw canker sore with inflammation of the left parotid gland. The patient was noted to have an ANC count of 0 with white blood cell count of 1.2. The patient was admitted to the hospital, pancultured for infection including a viral workup including CMV, EBV, HCV, HIV, and also thyroid levels were obtained, all of which are negative for abnormality at this time. The patient was initiated on IV Zosyn and vancomycin and Infectious Disease was consulted. The following morning, ENT was consulted and CT of the neck without contrast was found to be negative for any evidence of parotid stones or obstruction. Panorex imaging was negative for any dental caries or root issues. The patient hospital day 0 was given a dose of Neupogen at 480 mcg. The following morning, the ANC level had increased from 0 to 0.22. White cell count was noted to be 2.8. The patient was redosed again on July 06. Also, at the time of admission the patient was discontinued off of full dose CellCept therapy. Today, the patient's white count has now risen to 12.2 with an ANC of 7.37. This is also following the recommendations of ENT to initiate steroid therapy to decrease swelling of the parotid gland that appears to be somewhat obstructed from this large oral ulcer and inflammation. Today on exam, Mr. Cuello is alert and oriented times 4. The oral ulcer has significantly decreasedin size. He no longer has parotid edema. He has remained afebrile and his cultures all remain negative as previously discussed. Per ENT recommendations, the patient will initiate today a steroid taper with prednisone beginning at 60 mg p.o. daily times 3 days and will decrease over the next 2 weeks until titrated off. The patient's post liver dental insurance coordinator in [place] has been contacted andnotified. The patient is scheduled for followup labs and clinic visit for next week. Today, we will discharge the patient with a 7-day course of Augmentin to complete therapy for parotiditis. DISCHARGE MEDICATIONS: This is your current active medication list based on information provided during your hospitalization. If you have any questions or need additional information about your medications, please contact your primary care provider. CONTINUE taking the following 11 medication(s): ACETAMINOPHEN (TYLENOL 325 MG ORAL TABLET) - 2 tab(s) Orally Every 6 Hours As needed for Pain/Fever Take your next dose: 07/07/2014 available at any time, no doses given today AMLODIPINE (NORVASC) - 10 mg Orally At Bedtime Take your next dose: 07/07/2014 at bedtime ASPIRIN (ASPIRIN) - 81 mg Orally Every Day Take your next dose: 07/08/2014 at 9 am CALCIUM AND VITAMIN D (CALCIUM CITRATE + VITAMIN D) - 2 tab(s) Orally Twice a Day Take your next dose: 07/07/2014 at 9 pm CHOLECALCIFEROL (VITAMIN D3 2000 INTL UNITS ORAL CAPSULE) - 1 cap Orally Every Day Take your next dose: 07/08/2014 at 9 am CLONAZEPAM (CLONAZEPAM) - 0.5 mg Orally At Bedtime Take your next dose: 07/07/2014 at bedtime LAMOTRIGINE (LAMOTRIGINE) - 200 mg Orally Twice a Day Take your next dose: 07/07/2014 at 9 pm MULTIVITAMIN (MULTIVITAMIN) - 1 tab(s) Orally Every Day Take your next dose: 07/08/2014 at 9 am OMEGA-3 POLYUNSATURATED FATTY ACIDS (FISH OIL) - 1,000 mg Orally Twice a Day Take your next dose: 07/07/2014 at 9 pm TACROLIMUS (TACROLIMUS) - 3 mg Orally Every 12 hours Take your next dose: 07/07/2014 at 9 pm TRAZODONE (TRAZODONE) - 100 mg Orally At Bedtime As needed for Sleep Take your next dose: 07/07/2014 at 9 pm NEW Start taking the following 5 medication(s): AMOXICILLIN-CLAVULANATE (AUGMENTIN 500 MG ORAL TABLET) - 1 tab(s) Orally Every 8 Hours Duration: 7 Day(s) Dispense: 21 Tab Prescription given to patient. Take your next dose: 07/07/2014 at 10 pm then at 6 am, 2 pm, and 10 pm starting 07/08/2014 CHLORHEXIDINE TOPICAL (CHLORHEXIDINE TOPICAL 0.12% ORAL RINSE) - 15 Milliliter Swish and Spit Twice a Day Dispense: 900 mL Prescription given to patient. Take your next dose: 07/07/2014 at 9 m LIDOCAINE TOPICAL (LIDOCAINE VISCOUS 2% MUCOUS MEMBRANE SOLUTION) - 5 Milliliter Swish and Spit Every 3 Hours As needed for Mouth Pain Dispense: 100 mL Prescription given to patient. Take your next dose: 07/07/2014 available at any time OXYCODONE (OXYCODONE 5 MG ORAL TABLET) - 2 tab(s) Orally Every 6 Hours As needed for Pain Moderate Dispense: 10 Tab Prescription given to patient. Take your next dose: 07/07/2014 available at any time, no doses given today PREDNISONE (PREDNISONE 20 MG ORAL TABLET) - 3 tab(s) Orally Every Day With a Meal ; Indications/Special Instructions: take 60mg x2 more days, then 40mg x3 days, then 20mgx3 days, then 10mg x3 days, then 5mg x3 days and stop. Dispense: 41 Tab Prescription given to patient. Take your next dose: 07/08/2014 with breakfast Medication list for discharge reconciliation updated on 07-07-14 13:05 Harshal MCPHERSON, MS, RN, Yu German CONDITION AT DISCHARGE: Stable. DISCHARGE DIET: Low-sodium. DISCHARGE FOLLOWUP CARE: The patient will continue with viscous lidocaine oral swish for pain. He has been given a prescription for oxycodone for pain management and a steroid taper with prednisone. He has also been given a prescription for Augmentin. The patient will follow up next week back in [place] with Liver Transplant Clinic. At this time, the patient's liver function tests are completely stable. He remains immunosuppressed with Prograf, now at 3 mg p.o. twice daily and Prograf level today was noted to be 6.9. We will defer to [place] for ongoing immunosuppression, but have recommended holding CellCept at this time and either restarting at 250 mg p.o. twice daily or initiating Imuran therapy if patient does require dual therapy. SPECIAL INSTRUCTIONS: Please forward a copy of this dictated note to Roshan Grace, post liver dental insurance coordinator for [facility]. MARIELA/andra Reference: [facility]-[id number] Shellie Westbrook, R.N. - 07/05/2014 4:04 PM MST Result Type: ED Focused Discharge Result Date: 05 July 2014 16:04 MST Result Status: Auth (Verified) Result Title: ED Focused Discharge/ Education Performed By: Shellie Westbrook RN on 05 July 2014 16:04 MST Verified By: Shellie Westbrook RN on 05 July 2014 16:04 MST *Final* ED Focused Discharge/ Education Entered On: 05-Jul-2014 16:05 MST Performed On: 05-Jul-2014 16:04 MST by Shellie Westbrook RN ED General Discharge Patient location and room number : ED 05 Mode of Transportation : Stretcher ED Patient disposition. : Admit (Not OR, Child Support Case Officer or ICU) Discharged with : Self Patient transported by/with : RN, IV, Irrigation Manager, ACLS Report Called? 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 - 07/07/2014 7:58 AM MST Result Type: Hosp ORL Progress Note Result Date: 07 July 2014 07:58 MST Result Status: Auth (Verified) Result Title: Progress Note ENT Performed By: Stephanie VASQUEZ MS, Jaime on 07 July 2014 08:08 MST Verified By: Stephanie VASQUEZ MS, Jaime on 07 July 2014 08:08 MST *Final* Progress Note ENT Patient: JOSE ALEJANDRO CUELLO Age: 58 years Sex: Male : 1955 Author: Kingsley VASQUEZ MS, Jaime Basic Information Service: CHIN: ENT. Time Patient Seen: 07-Jul-2014 06:50:00. Subjective Patient notes significant improvement in left sided facial swelling and sore in mouth. Decreased pain in mouth and sore resolving. Patient feels better overall.. Objective Vital Signs T : 36.5 Temp Range: 36.5 - 37.1 HR: 57 HR Range: 52- 66 RR: 18 RR Range: 14- 18 BP: 125/68 BP Range: 103-136/ 56- 79 Height: 177 Admit Weight: 84.9 Weight: 86.7 Pain Score: 0 SPO2: 96 O2 Device Type: Other: room air Description: Intake/Output Net Balance : 2766.75 Yesterday's 24 Hour Total: 4716.75 / 1750.00 Since Midnight: 1000.00 / 1200.00 Cont Inf/Med: 2343.75 /24-hour total: 1343.75 /Since Midnight: 1000.00 Med Intake: 1203.00 /24-hour total: 1203.00 /Since Midnight: 0.00 Oral Intake: 2170.00 /24-hour total: 2170.00 /Since Midnight: 0.00 Voided/Urine Output: 2950.00 / 24-hour Total: 1750.00 /Since Midnight: 1200.00 Physical Examination Gen: NAD/A&O x3 Head: NC/AT; decreased facial swelling left parotid. Soft to palpate with minimal swelling. Significant improvement from yesterday. Facial function intact. OP/OC: Resolving ulcer left buccal mucosa; some tenderness to palpate but improved. Results Review [facility] (Results Since Midnight) \ L 9.3 / H 12.2 165 / L 28.0 \ Assessment and Plan 1. Left parotitis - significant improvement -Continue Prednisone 60 mg x 3-4 days, 40 mg x 3-4 days, 20 mg x 3-4 days (today is day #1) -Continue Unasyn -Upon d/c give Augmentin 875 mg BID x 10 day -Warm compresses TID x 20 mins -Sialogogues -Massage left parotid 2. Left buccal mucosa ulcer - improving -Continue viscous lidocaine -If no further improvement, can offer biopsy. 3. ENT will continue to follow for now. Amando Wynn PA-C [id number] Professional Services Billing: HV1 TT 15 minutes. Reference: [facility]-[id number] Joss Osuna M.D. - 07/07/2014 7:47 AM MST Result Type: Hosp InfDis Progress Note Result Date: 07 July 2014 07:47 MST Result Status: Auth (Verified) Result Title: Progress Note * Performed By: Joss Osuna MD on 07 July 2014 10:50 MST Verified By: Joss Osuna MD on 07 July 2014 10:50 MST *Final* Progress Note * Patient: JOSE ALEJANDRO CUELLO Age: 58 years Sex: Male : 1955 Author: Joss Osuna MD Basic Information Service: INFD: Infectious Diseases. Time Patient Seen: 07-Jul-2014 09:15:00. Subjective No events overnight. Current Medications Reviewed Medication List. (Selected) Inpatient Medications Ordered Prograf: 3 mg, 3 Cap, PO, [id number] Unasyn: 3 g, 200 mL/hr, IVPB, Q12H chlorhexidine topical 0.12% oral rinse: 15 mL, SWISH&SPIT, BID. Objective Vital Signs T : 36.5 Temp Range: 36.5 - 37.1 HR: 57 HR Range: 52- 66 RR: 18 RR Range: 14- 18 BP: 125/68 BP Range: 103-136/ 56- 79 Height: 177 Admit Weight: 84.9 Weight: 86.7 Pain Score: 0 SPO2: 96 O2 Device Type: Other: room air Physical Examination Constitutional: Normal: Nontoxic appearance. ENT: Abnormal: less swelling L faccial area. Results Review Fish[facility] (Results Since Midnight) \ L 9.3 / H 12.2 165 / L 28.0 \ Lab Name - Result (Results Since Midnight) INR - 1.10 Protime - 14.4 Radiologic Studies / Other Radiology Orders rad CT Neck WO/RADIOTELEGRAPH OPERATOR rad Chest, PA+ Lateral rad Panorex [place] . Assessment and Plan 58 yrs old S/P 2nd OLTX in 2012 for autoimmune hepatitis, now mouth sores, possible L parotitis, andneutropenia of unclear etiology 1. Now on unasyn 2. Could follow with Augmention to finish 14 day course 3. May need to be see by Hematology re etiology of his low white count which is now resolved with neupogen Call us if other ID issues Professional Services Billing: 2. Reference: [id number] OTELEGRAPH OPERATOR Yu Caputo, RAMONA, C.N.P., D.N.P., M.S. - 07/06/2014 7:00 AM MST Result Type: Hosp TxHepa Progress Note Result Date: 06 July 2014 07:00 MST Result Status: Modified Result Title: Transplant Hepatology Progress Note Performed By: Harshal GREENE DNP,MS, SOLDERING MACHINE FEEDER,RN, Yu German on 06 July 2014 09:00 MST Verified By: Harshal GREENE DNP,MS, SOLDERING MACHINE FEEDER,RN, Yu German on 06 July 2014 09:00 MST *Final* Transplant Hepatology Progress Note Patient: JOSE ALEJANDRO CUELLO Age: 58 years Sex: Male : 1955 Author: Harshal MCPHERSON, MS, RN, Yu German Basic Information Service: lktr. Time Patient Seen: 06-Jul-2014 07:00:00. Subjective Worsened edema of left face and jaw. Persistent headache and pain. Low grade fever overnight. ANC improving today. ENT consult for any further recs. . Current Medications Med Scheduled Zosyn ; 2.25 g = 50 mL ; IVPB ; Q6H ; 100 mL/hr ; 07/05/14 14:40 chlorhexidine topical 0.12% oral rinse ; 15 mL ; MOUTHWASH ; SWISH&SPIT ; BID ; 07/05/14 21:00 Prograf ; 3 mg = 3 Cap ; PO ; [id number] ; 07/05/14 20:00 aspirin ; 81 mg = 1 Tab ; PO ; DailyMeal ; 07/06/14 08:00 clonazePAM ; 0.5 mg = 1 Tab ; PO ; QHS ; 07/05/14 21:00 lamoTRIgine ; 200 mg = 2 Tab ; PO ; BID ; 07/05/14 21:00 Norvasc ; 10 mg = 2 Tab ; PO ; [id number] ; 07/05/14 21:00 neuPOGEN ; 480 mcg = 1.6 mL ; SQ ; ONCE ; 07/06/14 08:05 ; 07/06/14 08:05 PRN oxyCODONE ; 5 mg = 1 Tab ; PO ; Q6H ; 07/05/14 15:25 traZODone ; 100 mg = 2 Tab ; PO ; QHS ; 07/05/14 18:31 Tylenol ; 650 mg = 2 Tab ; PO ; Q6H ; 07/06/14 02:49 fentaNYL ; 25 mcg = 0.5 mL ; IV SLOW PUSH ; Q1H ; 07/06/14 06:53 . Reviewed Medication List. Objective Vital Signs T : 37.1 Temp Range: 36.7 - 39.8 HR: 64 HR Range: 64- 85 RR: 14 RR Range: 14- 21 BP: 116/66 BP Range: 114-175/ 65- 88 Height: 177 Admit Weight: 84.9 Weight: 85.0 Pain Score: 3 SPO2: 97 O2 Device Type: Other: ra Vital Signs 05-Jul-2014 16:05 MST Temperature Value 38.1 DegC NE 05-Jul-2014 12:25 MST Temperature Value 38.1 DegC NE 05-Jul-2014 10:14 MST Temperature Value 39.8 DegC NE Description: Intake/Output Net Balance : 2072.00 Yesterday's 24 Hour Total: 2369.00 / 450.00 Since Midnight: 553.00 / 400.00 Med Intake: 1562.00 /24-hour total: 1509.00 /Since Midnight: 53.00 Oral Intake: 1360.00 /24-hour total: 860.00 /Since Midnight: 500.00 Voided/Urine Output: 850.00 / 24-hour Total: 450.00 /Since Midnight: 400.00 Physical Examination Constitutional: Normal: NAD. Head/Eyes: Abnormal: edema of left face and jaw. ENT: Abnormal: canker sore of left mouth x 3 weeks.. CV: Normal: RRR. Resp: Normal: Lungs clear to auscultation bilaterally. Abd/GI: Normal: No masses. Skin: Normal: Warm, dry. Neuro: Normal: CN II-XII grossly intact. Psych: Normal: Normal affect. Results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 12:02 MST Reference: [id number] OTELEGRAPH OPERATOR documented in this encounter Nursing Notes Conversion, Historical Provider Ser - 07/07/2014 3:05 PM MST Result Type: Hosp Patient Disposition Result Date: 07 July 2014 15:05 MST Result Status: Auth (Verified) Result Title: Patient Disposition Record Performed By: Shukri ELMORE, ChristaS.R.Lesa Manzo on 07 July 2014 17:05 MST Verified By: Shukri ELMORE, ChristaS.RSteve, Lesa Redman on 07 July 2014 17:05 MST *Final* Patient Disposition Record Entered On: 07-Jul-2014 17:06 MST Performed On: 07-Jul-2014 15:05 MST by Shukri ELMORE, ChristaS.R.Lesa Manzo Discharge Disposition Time of Patient Discharge : 07-Jul-2014 15:05 MST Mode of Transportation : Ambulatory Discharge Location : Home Discharge from unit accompanied by : [facility] Printed Materials : Yes Discharge Instructions Reviewed With : Patient, Family Prescription(s) Given to : Patient All Belongings Sent with Pt on Discharge : Yes Patient ID Wrist Band Removed : Yes Shukri ELMORE, Arley.M.S.R.Anais, Lesa Redman - 07-Jul-2014 17:05 MST Reference: [id number] Conversion, Historical Provider Ser - 07/07/2014 2:50 PM MST Result Type: Hosp Patient/Family Education Result Date: 07 July 2014 14:50 MST Result Status: Auth (Verified) Result Title: Patient Education Documentation Performed By: Shukri ELMORE, Sampson.S.R.Lesa Manzo on 07 July 2014 17:04 MST Verified By: Shukri ELMORE C.M.S.RLesa Wilson on 07 July 2014 17:04 MST *Final* Patient Education Documentation Entered On: 07-Jul-2014 17:05 MST Performed On: 07-Jul-2014 14:50 MST by Shukri ELMORE, JanetteM.S.R.Lesa Manzo Generic Medical: Pt/Family Edu Generic Medical: Pt/Family Edu 1. Generic Medical Expected Outcomes : Define/describe disease process/condition, Describe control and prevention measures, Describe treatment/management, Discuss Activity parameters, Discuss causes/sources of infection, Discuss Medication regimen and side effects (Comment: Discussed POC, discussed neutropenic precautions, assuming neutropenia until proven otherwise, when to f/u with physician, when it is important to call to get labs redrawn, f/u with primary transplant physician in [place] [Shukri ELMORE, Arley.M.S.R.NDemetrius, Lesa Redman - 07-Jul-2014 17:04 MST] ) Generic Medical Instruction Provided to : Patient General Medical Discipline Educating : Nursing Generic Medical Method of Instruction : Teach Back, Verbal Instruction Generic Medical Outcome of Instruction : Verbalizes understanding Generic Medical Goals Met/Not Met : Met Generic Medical Date/Time of Instruction : 07-Jul-2014 14:50 MST Shukri ELMORE, Arley.M.S.R.NDemetrius, Lesa Redman - 07-Jul-2014 17:04 MST Fall Risk Education [place] : Fall and Injury Risk Prevention During Your Hospital Stay Education Pamphlet Given ([id number]) Shukri ELMORE, Arley.M.S.R.NLesa Romo - 07-Jul-2014 17:04 MST Reference: [id number] Yu Caputo, RAMONA, C.N.P., D.N.P., M.S. - 07/07/2014 1:04 PM MST Result Type: Hosp Discharge Core Measures Result Date: 07 July 2014 13:04 MST Result Status: Auth (Verified) Result Title: Discharge Core Measures Performed By: Harshal GREENE DNP,MS, SOLDERING MACHINE FEEDER,RN, Yu German on 07 July 2014 13:04 MST Verified By: Harshal GREENE DNP,MS, SOLDERING MACHINE FEEDER,RN, Yu German on 07 July 2014 13:04 MST *Final* Discharge Core Measures Entered On: 07-Jul-2014 13:04 MST Performed On: 07-Jul-2014 13:04 MST by Harshal MCPHERSON MS, RN, Yu German Discharge Diagnosis heart failure diagnosis : No acute PR diagnosis : No Ischemic Stroke/ICH/SAH diagnosis : No Does the patient have a comfirmed VTE? : No diagnosis of DVT/PE Harshal MCPHERSON, MS, RN, Yu German - 07-Jul-2014 13:04 MST Reference: [facility]-[id number] OTELEGRAPH OPERATOR Conversion, Historical Provider Ser - 07/07/2014 9:00 AM MST Result Type: Hosp Patient/Family Education Result Date: 07 July 2014 09:00 MST Result Status: Auth (Verified) Result Title: Patient Education Documentation Performed By: Shukri ELMORE, ChristaS.Lesa To on 07 July 2014 10:36 MST Verified By: Shukri ELMORE, ChristaS.RLesa Wilson on 07 July 2014 10:36 MST *Final* Patient Education Documentation Entered On: 07-Jul-2014 10:39 MST Performed On: 07-Jul-2014 09:00 MST by Shukri ELMORE, ChristaS.R.Lesa Manzo Generic Medical: Pt/Family Edu Generic Medical: Pt/Family Edu 1. Generic Medical Expected Outcomes : Define/describe disease process/condition, Describe control and prevention measures, Describe treatment/management, Discuss Activity parameters, Discuss causes/sources of infection, Discuss Medication regimen and side effects (Comment: Discussed POC, current needs, discussed ANC, WBC count, improvement of both following neupogen, discussed autoimmune [Shukri ELMORE, ChristaS.RLesa Wilson - 07-Jul-2014 10:36 MST] ) Generic Medical Instruction Provided to : Patient General Medical Discipline Educating : Nursing Generic Medical Method of Instruction : Teach Back, Verbal Instruction Generic Medical Outcome of Instruction : Verbalizes understanding Generic Medical Goals Met/Not Met : Met Generic Medical Date/Time of Instruction : 07-Jul-2014 09:00 MST Shukri ELMORE C.M.S.RLesa Wilson - 07-Jul-2014 10:36 MST Fall Risk Education [place] : Fall and Injury Risk Prevention During Your Hospital Stay Education Pamphlet Given ([id number]) Shukri ELMORE, Arley.M.S.R.NDemetrius, Lesa Redman - 07-Jul-2014 10:36 MST Reference: [id number] Conversion, Historical Provider Ser - 07/07/2014 9:00 AM MST Result Type: Hosp Fall Risk Assessment Result Date: 07 July 2014 09:00 MST Result Status: Auth (Verified) Result Title: Charlene II Fall Risk Performed By: Shukri ELMORE, C.M.S.R.N., Lesa Redman on 07 July 2014 10:35 MST Verified By: Shukri ELMORE, Arley.M.S.R.NLesa Romo on 07 July 2014 10:35 MST *Final* Hendrich II Fall Risk Entered On: 07-Jul-2014 10:36 MST Performed On: 07-Jul-2014 09:00 MST by Shukri ELMORE, Arley.M.S.R.NDemetrius, Lesa Bradleyrich II Fall Risk Confusion/Disorientation Hendrich : NO Depression Fall Risk Hendrich : NO Altered Elimination Fall Risk Hendrich : NO Dizziness/Vertigo Fall Risk Hendrich : No Gender, Male Fall Risk Hendrich : Yes Prescribed Antiepileptics Hendrich : Yes Prescribed Benzodiazepines Hendrich : Yes Rising From Chair Fall Risk Hendrich : Able to rise in a single movement, no loss of balance with steps Fall Risk Score Hendrich II : 4 Fall Risk Education [place] : Fall and Injury Risk Prevention During Your Hospital Stay Education Pamphlet Given ([id number]) Shukri ELMORE, Arley.M.S.R.NLesa Romo - 07-Jul-2014 10:35 MST Reference: [id number] Tereza Garduno R.N., [facility] - 07/07/2014 6:55 AM MST Result Type: Hosp Allied Health Shift Summary Result Date: 07 July 2014 06:55 MST Result Status: Auth (Verified) Result Title: Shift Summary Performed By: Tereza Harris RN on 07 July 2014 06:55 MST Verified By: Tereza Harris RN on 07 July 2014 06:55 MST *Final* Shift Summary Entered On: 07-Jul-2014 06:55 MST Performed On: 07-Jul-2014 06:55 MST by Tereza Garduno RN Shift Summary Date/time : 07-Jul-2014 06:55 MST Shift Summary Notes : pt afebrile. vss. no pain. no nausea. pt up ad darryl and stable on his feet, able to reposition by self. vss. q2 hour rounding this shift. Tereza Garduno RN - 07-Jul-2014 06:55 MST Reference: [id number] OTELEGRAPH OPERATOR Tereza Garduno R.N., CHPN - 07/06/2014 9:00 PM MST Result Type: Hosp Patient/Family Education Result Date: 06 July 2014 21:00 MST Result Status: Auth (Verified) Result Title: Patient Education Documentation Performed By: Tereza Harris RN on 06 July 2014 21:00 MST Verified By: Tereza Harris RN on 06 July 2014 21:00 MST *Final* Patient Education Documentation Entered On: 06-Jul-2014 21:01 MST Performed On: 06-Jul-2014 21:00 MST by Tereza Garduno RN Generic Medical: Pt/Family Edu Generic Medical: Pt/Family Edu 1. Generic Medical Expected Outcomes : Define/describe disease process/condition, Describe control and prevention measures, Describe treatment/management, Discuss Activity parameters, Discuss causes/sources of infection, Discuss Medication regimen and side effects, Discuss pain control measures, Discuss thoughts, feelings, concerns related to diagnosis/condition Generic Medical Instruction Provided to : Patient General Medical Discipline Educating : Nursing Generic Medical Method of Instruction : Teach Back, Verbal Instruction Generic Medical Outcome of Instruction : Verbalizes understanding Generic Medical Goals Met/Not Met : Met Generic Medical Date/Time of Instruction : 06-Jul-2014 21:01 MST Tereza Garduno RN - 06-Jul-2014 21:00 MST Fall Risk Education [place] : Fall and Injury Risk Prevention During Your Hospital Stay Education Pamphlet Given ([id number]) Tereza Garduno RN - 06-Jul-2014 21:00 [facility] Reference: [facility]-[id number] OTELEGRAPH OPERATOR Francesca Amato R.N., RN-RADHA - 07/06/2014 5:50 PM MST Result Type: Hosp Allied Health Shift Summary Result Date: 06 July 2014 17:50 MST Result Status: Auth (Verified) Result Title: Shift Summary Performed By: Francesca Beaulieu RN on 06 July 2014 17:50 MST Verified By: Francesca Beaulieu RN on 06 July 2014 17:50 MST *Final* Shift Summary Entered On: 06-Jul-2014 17:54 MST Performed On: 06-Jul-2014 17:50 MST by Francesca Zuniga RN Shift Summary Date/time : 06-Jul-2014 17:50 MST Shift Summary Notes : Pt afebrile this shift. Pain under control without PRN pain medication. PIV infiltrated, new IV started in left arm. Telemetry monitoring discontinued. Pt had BM this afternoon. No c/o nausea or dizziness, pt ambulated in halls today. VSS, friends at bedside. Francesca Zuniga RN - 06-Jul-2014 17:50 MST Reference: [id number] OTELEGRAPH OPERATOR Francesca Amato R.N., ZHAO - 07/06/2014 7:30 AM MST Result Type: Hosp Fall Risk Assessment Result Date: 06 July 2014 07:30 MST Result Status: Auth (Verified) Result Title: Hendrich II Fall Risk Performed By: Francesca Beaulieu RN on 06 July 2014 10:38 MST Verified By: Francesca Beaulieu RN on 06 July 2014 10:38 MST *Final* Hendrich II Fall Risk Entered On: 06-Jul-2014 10:39 MST Performed On: 06-Jul-2014 07:30 MST by Francesca Zuniga RN II Fall Risk Confusion/Disorientation Hendrich : NO Depression Fall Risk Hendrich : NO Altered Elimination Fall Risk Hendrich : NO Dizziness/Vertigo Fall Risk Hendrich : No Gender, Male Fall Risk Hendrich : Yes Prescribed Antiepileptics Hendrich : Yes Prescribed Benzodiazepines Hendrich : Yes Rising From Chair Fall Risk Hendrich : Able to rise in a single movement, no loss of balance with steps Fall Risk Score Hendrich II : 4 Fall Risk Education [place] : Fall and Injury Risk Prevention During Your Hospital Stay Education Pamphlet Given ([id number]) Francesca Zuniga RN - 06-Jul-2014 10:38 MST Reference: [id number] OTELEGRAPH OPERATOR Francesca Amato R.N., RN-RADHA - 07/06/2014 7:30 AM MST Result Type: Hosp Patient/Family Education Result Date: 06 July 2014 07:30 MST Result Status: Auth (Verified) Result Title: Patient Education Documentation Performed By: Francesca Beaulieu RN on 06 July 2014 10:40 MST Verified By: Francesca Beaulieu RN on 06 July 2014 10:40 MST *Final* Patient Education Documentation Entered On: 06-Jul-2014 10:40 MST Performed On: 06-Jul-2014 07:30 MST by Francesca Zuniga RN Generic Medical: Pt/Family Edu Generic Medical: Pt/Family Edu 1. Generic Medical Expected Outcomes : Define/describe disease process/condition, Describe control and prevention measures, Describe treatment/management, Discuss Activity parameters, Discuss causes/sources of infection, Discuss Medication regimen and side effects, Discuss pain control measures, Discuss thoughts, feelings, concerns related to diagnosis/condition, Identify symptoms and discuss length of occurence Generic Medical Instruction Provided to : Patient General Medical Discipline Educating : Nursing Generic Medical Method of Instruction : Teach Back, Verbal Instruction Generic Medical Outcome of Instruction : Able to Teach Back, Verbalizes understanding Generic Medical Goals Met/Not Met : Met Generic Medical Date/Time of Instruction : 06-Jul-2014 07:30 MST Francesca Zuniga RN - 06-Jul-2014 10:40 MST Fall Risk Education [place] : Fall and Injury Risk Prevention During Your Hospital Stay Education Pamphlet Given ([id number]) Francesca Zuniga RN - 06-Jul-2014 10:40 MST Reference: [id number] Tereza Urban R.N., CHPN - 07/06/2014 6:27 AM MST Result Type: Hosp Allied Health Shift Summary Result Date: 06 July 2014 06:27 MST Result Status: Auth (Verified) Result Title: Shift Summary Performed By: Tereza Harris RN on 06 July 2014 06:27 MST Verified By: Tereza Harris RN on 06 July 2014 06:27 MST *Final* Shift Summary Entered On: 06-Jul-2014 06:28 MST Performed On: 06-Jul-2014 06:27 MST by Tereza Garduno RN Shift Summary Date/time : 06-Jul-2014 06:27 MST Shift Summary Notes : pt spiked fever of 38.0 managed with prn tylenol x2 and oxycodne x1. no nausea. pt up ad darryl and stable on his feet, able to reposition by self. vss. q2 hour rounding this shift. Tereza Garduno RN - 06-Jul-2014 06:27 MST Reference: [id number] Tereza Urban R.N., CHPN - 07/05/2014 8:38 PM MST Result Type: Hosp Nurse Note Result Date: 05 July 2014 20:38 MST Result Status: Auth (Verified) Result Title: Provider Notification [place] Performed By: Tereza Harris RN on 05 July 2014 21:37 MST Verified By: Tereza Harris RN on 05 July 2014 21:37 MST *Final* Provider Notification [place] Entered On: 05-Jul-2014 21:39 MST Performed On: 05-Jul-2014 20:38 MST by Tereza Garduno RN Provider Notification Provider Notification Date/Time : 05-Jul-2014 20:38 MST Provider Notification Intervention : Orders obtained Provider Notified : Leonid Peñaloza MD Provider Notification Reason : Abnormal assessment Provider Notified Comment : RN notified provider that pt spiked fever of 38.0 and currently has no meds ordered for fever management. provider gave verbal order of 650 mg tylenol prn q6 for pain/fever.also informed provider that pt is a x2 liver transplant, provider said the tylenol would be fine, continue to monitor pt. RN placed order Tereza Garduno RN - 05-Jul-2014 21:37 MST Reference: [id number] OTELEGRAPH OPERATOR Tereza Garduno R.N. MAUREEN - 07/05/2014 8:29 PM MST Result Type: Hosp Patient/Family Education Result Date: 05 July 2014 20:29 MST Result Status: Auth (Verified) Result Title: Patient Education Documentation Performed By: Tereza Harris RN on 05 July 2014 21:16 MST Verified By: Tereza Harris RN on 05 July 2014 21:16 MST *Final* Patient Education Documentation Entered On: 05-Jul-2014 21:17 MST Performed On: 05-Jul-2014 20:29 MST by Tereza Garduno RN Generic Medical: Pt/Family Edu Generic Medical: Pt/Family Edu 1. Generic Medical Expected Outcomes : Define/describe disease process/condition, Describe control and prevention measures, Describe treatment/management, Discuss Activity parameters, Discuss causes/sources of infection, Discuss Medication regimen and side effects, Discuss pain control measures, Discuss thoughts, feelings, concerns related to diagnosis/condition Generic Medical Instruction Provided to : Patient General Medical Discipline Educating : Nursing Generic Medical Method of Instruction : Teach Back, Verbal Instruction Generic Medical Outcome of Instruction : Verbalizes understanding Generic Medical Goals Met/Not Met : Met Generic Medical Date/Time of Instruction : 05-Jul-2014 20:29 MST Tereza Garduno RN - 05-Jul-2014 21:16 MST Fall Risk Education [place] : Fall and Injury Risk Prevention During Your Hospital Stay Education Pamphlet Given ([id number]) Tereza Garduno RN - 05-Jul-2014 21:16 MST Reference: [facility]-[id number] OTELEGRAPH OPERATOR Francesca Amato R.N., ZHAO - 07/05/2014 5:00 PM MST Result Type: Hosp Allied Health Shift Summary Result Date: 05 July 2014 17:00 MST Result Status: Auth (Verified) Result Title: Shift Summary Performed By: Francesca Beaulieu RN on 05 July 2014 18:13 MST Verified By: Francesca Beaulieu RN on 05 July 2014 18:13 MST *Final* Shift Summary Entered On: 05-Jul-2014 18:16 MST Performed On: 05-Jul-2014 17:00 MST by Francesca Zuniga RN Shift Summary Date/time : 05-Jul-2014 17:00 MST Shift Summary Notes : Pt admitted from ER. Pt A&O x3 and is SBA. Pt admitted for neutropenic fever with ANC of 0. Pt is on telemetry monitoring. Pt lives in [place] and is in town visiting friends. VSS, afebrile upon admission to floor. Medication list to be brought in by friend. Francesca Zuniga RN - 05-Jul-2014 18:13 MST Reference: [facility]-[id number] OTELEGRAPH OPERATOR Francesca Amato R.N., ZHAO - 07/05/2014 5:00 PM MST Result Type: Hosp Fall Risk Assessment Result Date: 05 July 2014 17:00 MST Result Status: Auth (Verified) Result Title: Hendrich II Fall Risk Performed By: Francesca Beaulieu RN on 05 July 2014 17:00 MST Verified By: Francesca Beaulieu RN on 05 July 2014 17:00 MST *Final* Mirnarich II Fall Risk Entered On: 05-Jul-2014 17:00 MST Performed On: 05-Jul-2014 17:00 MST by Francesca Zuniga RN II Fall Risk Confusion/Disorientation Hendrich : NO Depression Fall Risk Hendrich : NO Altered Elimination Fall Risk Hendrich : NO Dizziness/Vertigo Fall Risk Hendrich : No Gender, Male Fall Risk Hendrich : Yes Prescribed Antiepileptics Hendrich : No Prescribed Benzodiazepines Hendrich : NO Rising From Chair Fall Risk Hendrich : Able to rise in a single movement, no loss of balance with steps Fall Risk Score Hendrich II : 1 Fall Risk Education [place] : Fall and Injury Risk Prevention During Your Hospital Stay Education Pamphlet Given ([id number]) Francesca Zuniga RN - 05-Jul-2014 17:00 MST Reference: [id number] Shellie Gr R.N. - 07/05/2014 4:04 PM MST Result Type: ED Nursing Diagnosis/Intervention Result Date: 05 July 2014 16:04 MST Result Status: Auth (Verified) Result Title: ED Nursing Diagnosis/Intervention Performed By: Shellie Westbrook RN on 05 July 2014 16:04 MST Verified By: Shellie Westbrook RN on 05 July 2014 16:04 MST *Final* ED Nursing Diagnosis/Intervention Entered On: 05-Jul-2014 16:04 MST Performed On: 05-Jul-2014 16:04 MST by Shellie Westbrook RN Nursing Diagnosis Intervention Nursing Dx-Alteration in Comfort/Pain : Alteration in Comfort/Pain Goal: Alteration in Comfort/Pain : Partially met Shellie Westbrook RN - 05-Jul-2014 16:04 MST Reference: [id number] Shellie Gr R.N. - 07/05/2014 12:35 PM MST Result Type: Hosp Nurse Note Result Date: 05 July 2014 12:35 MST Result Status: Auth (Verified) Result Title: Provider Notification [place] Performed By: Shellie Westbrook RN on 05 July 2014 12:41 MST Verified By: Shellie Westbrook RN on 05 July 2014 12:41 MST *Final* Provider Notification [place] Entered On: 05-Jul-2014 12:42 MST Performed On: 05-Jul-2014 12:35 MST by Shellie Westbrook RN Critical Result(s) Notification Date Patient Care Provider Notified : 05-Jul-2014 12:35 MST Critical Result Value : abs neutrophil 0.0 Critical Results Intervention [place] : No orders obtained Provider Notified of Critical Results : Yu Hernandez MD, RN, Rachael A - 05-Jul-2014 12:41 [facility] Reference: [id number] OTELEGRAPH OPERATOR Shellie Westbrook R.N. - 07/05/2014 12:25 PM MST Result Type: ED Treatment Record Form Result Date: 05 July 2014 12:25 MST Result Status: Modified Result Title: ED Treatment Record - [place] Performed By: Shellie Westbrook RN on 05 July 2014 12:31 MST Verified By: Shellie Westbrook RN on 05 July 2014 12:31 MST *Final* ED Treatment Record - [place] Entered On: 05-Jul-2014 12:34 MST Performed On: 05-Jul-2014 12:25 MST by Shellie Westbrook RN ED Medication Profile [place] Current Meds Reviewed/Verified : Other: TO BE COMPLETED BY MOLDER INFLATED BALL Date MEDS last updated : 05-Jul-2014 [facility] Allergies to anticoagulants or history of HIT : No Transdermal patch present : NO Has the patient had a procedure in the past 4 days? : No EXPAREL Smart Template : Med Given: Shellie Westbrook RN - 05-Jul-2014 12:34 [facility] Medication List (As Of: 05-Jul-2014 12:35:07 MST) Normal Order AMPICILLIN-SULBACTAM INJ MBP : AMPICILLIN-SULBACTAM INJ MBP ; Status: Completed ; Ordered As Mnemonic: Unasyn ; Simple Display Line: 3 g, 200 mL/hr, IVPB, ONCE ; Ordering Provider: Yu Hernandez MD, I; Catalog Code: ampicillin-sulbactam ; Order Dt/Tm: 05-Jul-2014 11:48:33 SODIUM CHLORIDE 0.9% : SODIUM CHLORIDE 0.9% ; Status: Completed ; Ordered As Mnemonic: sodium chloride 0.9% bolus ; Simple Display Line: 1,000 mL, 1000 mL/hr, IVPB, ONCE ; Ordering Provider: Yu Hernandez MD, I; Catalog Code: sodium chloride 0.9% ; Order Dt/Tm: 05-Jul-2014 10:56:08 ED Vaccinations Tetanus Shot History : Unknown Shellie Westbrook RN - 05-Jul-2014 12:34 [facility] ED PMH PMH reviewed/updated with : Patient Date PMH last updated : 05-Jul-2014 [facility] Health History : Yes, as noted below Shellie Westbrook RN - 05-Jul-2014 12:34 MST Previous Surgery History 1. Previous Surgery : Liver Transplant Date of Previous Surgery : 1998 Shellie Westbrook RN - 05-Jul-2014 12:34 MST 2. Previous Surgery : Other: ELBOW REPLACEMENT Shellie Westbrook RN - 05-Jul-2014 12:34 MST 3. Previous Surgery : Other: HAND SURGERY Shellie Westbrook RN - 05-Jul-2014 12:34 MST 4. Previous Surgery : Other: SHOULDER SURGERY Shellie Westbrook RN - 05-Jul-2014 12:34 MST 5. Previous Surgery : Knee Surgery Shellie Westbrook RN - 05-Jul-2014 12:34 MST 6. Previous Surgery : Other: ANKLE SURGERY Shellie Westbrook RN - 05-Jul-2014 12:34 MST Endocrine History : Hypothyroidism Genitourinary History : Renal Failure Shellie Westbrook RN - 05-Jul-2014 12:34 MST Tobacco History Meaningful Use Tobacco History Documented : 05-Jul-2014 [facility] Shellie Westbrook RN - 05-Jul-2014 12:34 [facility] Social History (As Of: 05-Jul-2014 12:34:36 MST) Tobacco: Never Smoker (Last Updated: 05-Jul-2014 12:34:18 MST by Shellie Westbrook RN ) ED Baseline Evaluation [place] Patient is adult (18 or above) : Yes Complaint today related to an acute/prior fall? : No Primary Language : Senegalese Barriers to Learning : None Front Counter Attendant Needed : NO ED unintent wt loss >10 # in 30 days : NO Pt. Valuables/Med Device/Equipment on arrival? : No Loss of Appetite for > 7 Days : NO Nursing Dx-Alteration in Comfort/Pain : Alteration in Comfort/Pain Possible abuse - ED question : NO Perform Adult Fall Risk Assessment : Yes Routine Pt Checks/Safety/Fall Precautions : All Siderails Up, Bed In Low Position, Call Gray Within Reach, Clothing/Personal items removed Baseline Mobility Status : Ambulatory Mobility/Pressure Ulcer Status : None Repositioning Sheet Needed : No Shellie Westbrook RN 05-Jul-2014 12:34 [facility] ED Baseline Assessment Level of consciousness (LOC) : Alert Respiratory Pattern : Regular Skin Color : [place] Neuro Orientation : Alert and Oriented x3 Respiratory Effort : No Distress Noted Skin Temperature : Warm Neuro Behavior : Cooperative Skin Characteristics : Dry Cough Pattern : None Shellie Westbrook RN 05-Jul-2014 12:34 [facility] Standards WD Standard Neurological : NEUROLOGICAL: Alert and oriented to person, place and time Able to follow commands Speech clear and understandable Active ROM to all extremities with symmetry of strength No sensory changes Pupils equal, round, reactive to light and accommodation WDL Standard Cardiovascular : CARDIOVASCULAR: Regular apical pulse S1S2 audible Capillary refill < 3 seconds Peripheral pulses palpable and bilaterally equal No edema No calf tenderness Nail beds pink WDL Standard Respiratory : RESPIRATORY: Respirations quiet and regular Breath sounds clear and equal bilaterally No accessory muscles used No cough or dyspnea WDL Standard Gastrointestinal : GASTROINTESTINAL: Abdomen soft, non-distended, and non-tender Bowel sounds normal and active Tolerates prescribed diet Self reported normal pattern and consistency for individual WDL Standard Genitourinary : GENITOURINARY: Continent of urine No dysuria Urine clear and yellow Self reported frequency normal for individual WDL Standard Musculoskeletal : MUSCULOSKELETAL: Functional range of motion in all joints Absence of joint swelling and tenderness No muscle weakness Surrounding tissues show no evidence of inflammation WDL Standard Skin/Mucosa : SKIN/MUCOSA ASSESSMENT: Skin color normal for individual Skin warm, dry, and intact Elastic turgor Mucous membranes pink, moist, and intact No nail changes or rashes WDL Standard Psychosocial : PSYCHOSOCIAL ASSESSMENT: Anxiety level and/or coping mechanisms appropriate for age and developmental level Adequate support systems Shellie Westbrook RN 05-Jul-2014 12:34 MST Hendrich II Fall Risk [place] Confusion/Disorientation Hendrich : NO Depression Fall Risk Hendrich : NO Altered Elimination Fall Risk Hendrich : NO Dizziness/Vertigo Fall Risk Hendrich : Yes Gender, Male Fall Risk Hendrich : Yes Prescribed Antiepileptics Hendrich : No Prescribed Benzodiazepines Hendrich : NO Rising From Chair Fall Risk Hendrich : Able to rise in a single movement, no loss of balance with steps Fall Risk Score Hendrich II : 2 Fall Risk Education AZ : Fall and Injury Risk Prevention During Your Hospital Stay Education Pamphlet Given ([id number]) Shellie Westbrook RN - 05-Jul-2014 12:34 MST ED Donie Coma Assessment AZ Is Patient 3 or Older : Yes Donie Best Motor Adult. : 6 = Obeys Commands Chavez Best Verbal Adult : 5 = Oriented Chavez Eyes Open Adult : 4 = Spontaneously Donie Coma Scale Score Adult : 15 hSellie Westbrook RN - 05-Jul-2014 12:34 MST Reference: [id number] OTELEGRAPH OPERATOR Shellie Westbrook R.N. - 07/05/2014 12:16 PM MST Result Type: ED Nurse Note Result Date: 05 July 2014 12:16 MST Result Status: Modified Result Title: ED Nursing Progress Note [place] Performed By: Shellie Westbrook RN on 05 July 2014 13:36 MST Verified By: Shellie Westbrook RN on 05 July 2014 13:36 MST *Final* ED Nursing Progress Note [place] Entered On: 05-Jul-2014 13:38 MST Performed On: 05-Jul-2014 12:16 MST by Shellie Westbrook RN ED Nursing Progress Note Date/Time ED Nursing Progress Note 3 : 05-Jul-2014 15:00 MST Shellie Westbrook RN - 05-Jul-2014 15:29 MST ED Nursing Progress Note 3 : PT A+OX3, PWD, PT LYING ON STRETCHER RESTING, PT ON MONITOR, ADMITTING SERVICES AT BEDSIDE EXAMING PT AND DISCUSSING PLAN OF CARE WITH PT. Shellie Westbrook RN - 05-Jul-2014 15:51 MST Date/Time ED Nursing Progress Note 1 : 05-Jul-2014 12:16 MST ED Nursing Progress Note 1 : ASSUMED CARE OF PT, TOOK REPORT FROM CATARINA BATES, PT A+OX3, PWD, PT LYINGON STRETCHER RESTING IN ROOM 5, PT ON MONITOR Date/Time ED Nursing Progress Note 2 : 05-Jul-2014 12:25 MST Shellie Westbrook RN - 05-Jul-2014 13:36 [facility] ED Nursing Progress Note 2 : PT A+OX3, PWD, PT LYING ON STRETCHER RESTING IN ROOM 5, PT ON MONITOR, 18G IV PLACED LEFT FORARM. FLUIDS STARTED AND UNASYN GIVEN. Shellie Westbrook RN - 05-Jul-2014 15:51 [facility] Reference: [id number] OTELEGRAPH OPERATOR Diane Wright M.S.N., R.N. - 07/05/2014 10:14 AM MST Result Type: ED Triage Result Date: 05 July 2014 10:14 [facility] Result Status: Auth (Verified) Result Title: ED Triage Performed By: Kyle FARLEY RN, Tiffany E on 05 July 2014 10:14 [facility] Verified By: Kyle FARLEY RN, Tiffany E on 05 July 2014 10:14 [facility] *Final* ED Triage Entered On: 05-Jul-2014 10:18 MST Performed On: 05-Jul-2014 10:14 [facility] by Diane Wright R.N. ED Triage Assessment Patient's Chief Complaint : JAW PAIN X 3 WEEKS, HAD A 'CANKER SORE' NEAR HIS SALIVARY GLAND, FACE ISSWOLLEN, SOME PUS IN HIS MOUTH, FEVERS, CHILLS. SEEN AT THE URGENT CARE AND WAS SENT HERE FOR CARE. Traveled to foreign country in past 3 weeks? : No Does pt have thoughts of harming themself/others : No Diane Wright R.N. - 05-Jul-2014 10:14 [facility] ED Arrival Mode of Arrival : Private vehicle Accompanied By : None Mode of Transportation : Ambulatory Patient Received from SNF : NO Diane Wright R.N. - 05-Jul-2014 10:14 [facility] ED Vital Signs ED BP Evaluation - Triage : Adult NISBP : 158 mmHg (HI) NIDBP : 88 mmHg Heart Rate : 85 bpm Source NIBP : Arm, Automatic Cuff Temperature Value : 39.8 DegC(Converted to: 103.6 DegF) (NE) Temperature Mode : Core Resp Rate Total : 20 Br/min SPO2 : 97 % How O2 obtained : Room Air Admit Weight : 83.7 kg Weight obtained by : Weight obtained by scale Triage height in inches : 70 Inch(Converted to: 178 cm) Height (Adult) : 178 cm Is patient complaining of pain? : Yes Diane Wright R.N. 05-Jul-2014 10:14 [facility] Pain Location/Type/Scale-Grid 1. Pain Location : JAW Pain Type : Aching, Soreness Pain Intensity : 7 Pain Frequency : Constant Diane Wright R.N. 05-Jul-2014 10:14 [facility] ED Pain Scale Rating Score Patient Education : Pain Scale Rating Score education completed and Patient/Family/Significant Other verbalizes understanding LMP Evaluation : Male Diane Wright R.N. 05-Jul-2014 10:14 [facility] ED Allergies Date Allergies last updated : 05-Jul-2014 [facility] Diane Wright R.N. 05-Jul-2014 10:14 [facility] (As Of: 05-Jul-2014 10:18:15 [facility]) ED PMH PMH reviewed/updated with : Patient Date PMH last updated : 05-Jul-2014 [facility] Health History : Yes, as noted below Diane Wright R.N. 05-Jul-2014 10:14 [facility] Previous Surgery History 1. Previous Surgery : Liver Transplant Date of Previous Surgery : 1998 Diane Wirght R.N. 05-Jul-2014 10:14 MST 2. Previous Surgery : Other: ELBOW REPLACEMENT Diane Wright R.N. 05-Jul-2014 10:14 MST 3. Previous Surgery : Other: HAND SURGERY Diane Wright R.N. 05-Jul-2014 10:14 MST 4. Previous Surgery : Other: SHOULDER SURGERY Diane Wright R.N. 05-Jul-2014 10:14 MST 5. Previous Surgery : Knee Surgery Diane Wright R.N. 05-Jul-2014 10:14 MST 6. Previous Surgery : Other: ANKLE SURGERY Diane Wright R.N. 05-Jul-2014 10:14 [facility] Endocrine History : Hypothyroidism Genitourinary History : Renal Failure Diane Wright R.N. 05-Jul-2014 10:14 [facility] ED Baseline Assessment Level of consciousness (LOC) : Alert Respiratory Pattern : Regular Skin Color : [place] Neuro Orientation : Alert and Oriented x3 Respiratory Effort : No Distress Noted Skin Temperature : Warm Neuro Behavior : Cooperative Skin Characteristics : Dry Cough Pattern : None Diane Wright R.N. 05-Jul-2014 10:14 [facility] ED Treatment Performed in Triage DCP GENERIC CODE Acuity : Level 2 Tracking Group : [facility] ED Diane Wright R.N. 05-Jul-2014 10:14 [facility] Triage Provider : Diane Wright R.N., R.N., Tiffany E - 05-Jul-2014 10:14 [facility] Reference: [facility]-[id number] OTELEGRAPH OPERATOR documented in this encounter ED Notes Yu Hernandez M.D. - 07/05/2014 12:00 AM MST Result Type: ED Evaluation Result Date: 05 July 2014 00:00 [facility] Result Status: Auth (Verified) Performed By: Yu Hernandez MD, I on 05 July 2014 10:50 MST Verified By: Yu Hernandez MD, I on 17 July 2014 17:54 MST *Final* [facility] EMERGENCY DEPARTMENT Patient Name: Jose Alejandro Cuello Service Date: 07/05/2014 Facility Name: [facility] : 1955 Provider Name: Yu Hernandez M.D. Age: 58 Service: Emergency Medicine Visit Type: ED Evaluation TIME: 1045. CHIEF COMPLAINT / REASON FOR VISIT: Left facial pain, fever. HISTORY OF PRESENT ILLNESS: This is a very pleasant 58-year-old male, status post liver transplant times two, the last being in May 2013, who also has renal insufficiency. He states that approximately four weeks ago, he began noticing some sores in his mouth; and then three weeks ago, he developed what he describes as a large canker sore by his left cheek by the salivary gland, but with no pain in the salivary gland. Over the past two to three days, he has been having increasing pain to that area, with swelling of the face. Last night, he began having shaking chills, and this morning, a fever. He was seen at an urgent care and initially, while there, his temperature was 100; and then he was seen to the Emergency Department, and now it has gone up. He has been having some weakness and dizziness. He is complaining of swelling down to his neck with a little bit of difficulty swallowing on the left side. He is not having any runny nose or sore throat. He has no cough or chest pain, no difficulty breathing. No abdominal pain, nausea, vomiting, diarrhea or urinary symptoms. He otherwise is doing well. He had his transplant at [place], and he is actually here visiting, scheduled to return on Friday. CURRENT MEDICATIONS: He is on acetaminophen. He actually took 975 this morning. Aspirin. Calcium citrate. Klonopin. Lamictal. Multivitamin. CellCept. Norvasc. Prilosec. Prograf. Desyrel. Vitamin D3. ALLERGIES: Erythromycin, Zyprexa, citalopram, Seroquel and ciprofloxacin. 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 He is on chronic immunosuppression. He has renal insufficiency, and he believes his last creatinine was about 2. History of hypertension. Hypocalcemia. Normocytic anemia. SOCIAL HISTORY: Negative for tobacco or alcohol. REVIEW OF SYSTEMS: Please see HPI. The remainder of the 10-system review is negative. PHYSICAL EXAM: Vital Signs: Temperature was 39.8, blood pressure 158/88, pulse of 85, respiratory rate of 20, O2 saturations are 97% on room air. General: This is a well-developed, well-nourished, slightly toxic-appearing male, who looks a littleuncomfortable but is in no acute distress. HEENT: Normocephalic, atraumatic. Pupils are PERRL, extraocular muscles intact. Sclerae are anicteric, conjunctivae noninjected. His face has a little bit of swelling by the left side, but it is minimal. Really, I do detect some swelling into the left side of the neck, with increased lymphadenopathy. In his mouth, by the left buccal mucosa, is approximately a 6-mm white ulcerative area. I do not see any other lesions. No erythema. He is swallowing his secretions. Neck: As stated, is a little bit prominent on the left, with increased left- sided lymphadenopathy. Chest: Clear to auscultation bilaterally, with equal excursion and unlabored breathing. Cardiac: Regular rate and rhythm, without murmurs, rubs, or gallops. Abdomen: Soft, nontender to palpation. No rebound, guarding, or rigidity. Extremities: He is moving all extremities. No cyanosis or edema. Pulses are 2+ and symmetrical. Strength is 5/5. Neurologic: Cranial nerves II-XII are grossly intact. He is alert to person, place, and time. Skin: Hot and flushed, and he is dry. IMPRESSION/REPORT/PLAN: Medical Decision-Making: This is a very pleasant 58-year-old male who is immunocompromised, status post two liver transplants, who also has renal insufficiency. He has now been having pain and swellingto the left side of his face and neck, and he is significantly febrile. At this time, blood work, inc luding cultures and a lactate, is pending. An IV will be initiated. He will be given a liter of normal saline, and I will need to do some imaging of the left side of his face. Hepatology will need to be consulted. Addendum: The patient's white count came back at 1.2. Hemoglobin 10.6, hematocrit of 30.8, plateletsof 191. His differential showed 0 absolute segs, absolute neutrophil count is 0; so he is neutropenic. Sodium of 132, potassium 4.1, chloride 97, bicarb 20, BUN of 39, creatinine of 2.1, glucose of 122. Lactate is 1.4. LFTs are within normal limits. Cultures were pending. CT scan of the neck was ordered, which showed no abscess, but there is a slightly prominent left parotid duct; so most likely, the main cause of the patient's fever is a neutropenic fever. His chest x-ray does show a nodular opacity in the right base. At this time, Hepatology has been down to evaluatethe patient, and he will be admitted for further care. Admission Diagnosis: 1. Neutropenic fever. SIB/ng Reference: [facility]-[id number] OTELEGRAPH OPERATOR documented in this encounter Miscellaneous Notes Miscellaneous - Conversion, Historical Provider Ser - 07/08/2014 1:32 PM MST Result Type: Hosp CaseMgmt Progress Note Result Date: 08 July 2014 13:32 MST Result Status: Auth (Verified) Result Title: Case Management Telephone Follow-Up * Performed By: Giuliano ELMORE, Hope FRANCIS on 08 July 2014 13:50 MST Verified By: Giuliano ELMORE, Hope FRANCIS on 08 July 2014 13:50 MST *Final* Case Management Telephone Follow-Up * Patient: JOSE ALEJANDRO CUELLO Age: 58 years Sex: Male : 1955 Author: Hope Nobles RN Results Review Readmission score Readmit Risk Stratified Score READMISSION RISK SCORES Home Meds=2 Emergent Admission=3 Depression= 2 Dialysis= 3 Total Score=10 Score 0-9 = Low risk Score 10-14 = Intermediate risk Score >= 15 = High risk Basic Information Date and time of phone call: 08-Jul-2014 11:50:00. Patient information: Diagnosis: PRINCIPAL DIAGNOSIS: 1. Neutropenic fever., Phone number: Home: / , SECONDARY DIAGNOSES: 2. Oral lesion. 3. 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 4. Chronic immunosuppression. 5. History of bipolar disorder. 6. Chronic renal insufficiency.. Call attempt(s):: 1, Complete. Discharged from nursing unit: AZ: 7W. Telephonic communication obtained; following information was discussed: Information obtained from patient. . How is the patient feeling?: Per patient, Feeling good today. Patient went on to report that he is flying home to [place] today and states that he will f/u with his medical team at [facility] in [place]. Upon questioning, patient denies: fever; chills; increasing fatigue/weakness; SOB/cough; abdominal pain; constipation/diarrhea; N&V; and/or any other problem/concern at this time. Patientstates that he is able to perform his own ADLs and denies any needs at this time.. Did anyone explain to the patient/family/caregiver what they should look for that would require them to call their healthcare provider?: Yes ( We reviewed S&S of infection along with when to call his healthcare providers. ). Does patient/family/caregiver have questions regarding recent health issues?: No. Is patient/family/caregiver able to verbally demonstrate understanding of the signs and symptoms tolook for and when to call their healthcare provider(s)?: Yes ( Patient/family/caregiver has good understanding, teach back successful, Patient reports that he has the contact info for his healthcare providers and for [facility] in [place] as well as in [place]. ). Does patient/family/caregiver have any questions about the instructions they were given when they left the hospital regarding care at home?: No ( We briefly reviewed patient's discharge instructions: diet; activity; pain management; and follow up appts. Patient verbally demonstrated a good understanding of all the above and states that he will be compliant with all the above too. ). Does patient have a follow up appointment?: No ( Planning to call (Patient reports that he will call his medical team in [place] on Friday to schedule follow up labs and appts for next week as instructed.) ). Is there a reason patient may not be able to keep follow up appointments?: No. Was patient started on any new medications?: Yes ( AMOXICILLIN-CLAVULANATE, CHLORHEXIDINE TOPICAL 0.12% ORAL RINSE, LIDOCAINE VISCOUS 2% MUCOUS MEMBRANE SOLUTION, OXYCODONE, and PREDNISONE. ). Was patient able to fill all medications since being discharged?: Yes. Can patient/family/caregiver verbally demonstrate good understanding of these new medications?: Yes( Medication teaching reinforced ). Does patient/family/caregiver have any questions or concerns related to medication?: No. Is patient taking medication as prescribed and as indicated on the discharge instructions?: Yes ( Patient reports good medication compliance. ). Plan: Recommendation follow up/referral: No, Follow per this RN/scrap crusher ( Patient/family/caregiver deny any needs at this time and no needs identified. Therefore, no futher follow up per this RN/scrap crusher is indicated at this time. ). Health Status Allergies: Allergic Reactions (Selected) Severity Not Documented Ciprofloxacin- No reactions were documented. Citalopram- No reactions were documented. Erythromycin- No reactions were documented. SEROquel- No reactions were documented. ZyPREXA- No reactions were documented.. Current medications: (Selected) Prescriptions Prescribed Augmentin 500 mg oral tablet: 1 Tab, PO, Q8H, 21 Tab Lidocaine Viscous 2% mucous membrane solution: 0.1 g, 5 mL, SWISH&SPIT, Q3H, 100 mL, PRN: Mouth Pain chlorhexidine topical 0.12% oral rinse: 0.018 g, 15 mL, SWISH&SPIT, BID, 900 mL oxyCODONE 5 mg oral tablet: 10 mg, 2 Tab, PO, Q6H, 10 Tab, PRN: Pain Moderate predniSONE 20 mg oral tablet: 60 mg, 3 Tab, PO, DailyMeal, take 60mg x2 more days, then 40mg x3 days, then 20mgx3 days, then 10mg x3 days, then 5mg x3 days and stop., 41 Tab Documented Medications Documented Fish Oil: 1,000 mg, PO, BID Norvasc: 10 mg, PO, QHS Tylenol 325 mg oral tablet: 2 Tab, PO, Q6H, PRN: Pain/Fever Vitamin D3 2000 intl units oral capsule: 2,000 IU, 1 Cap, PO, Daily aspirin: 81 mg, PO, Daily calcium citrate + vitamin D: 2 Tab, PO, BID clonazePAM: 0.5 mg, PO, QHS lamoTRIgine: 200 mg, PO, BID multivitamin: 1 Tab, PO, Daily tacrolimus: 3 mg, PO, Q12H traZODone: 100 mg, PO, QHS, PRN: Sleep. Reference: [facility]-[id number] Miscellaneous - Yu Caputo APRN, C.N.P., D.N.P., M.S. - 07/07/2014 12:58 PM MST Result Type: Hosp Discharge Instruction Worksheet Result Date: 07 July 2014 12:58 MST Result Status: Auth (Verified) Result Title: Hosp Discharge Instruction ([place]) Performed By: Harshal GREENE DNP,, VIDA,RN, Yu German on 07 July 2014 12:58 MST Verified By: Harshal GREENE DNP, MS, VIDA,RNYu on 07 July 2014 12:58 [facility] *Final* Hosp Discharge Instruction (AZ) Entered On: 07-Jul-2014 13:03 MST Performed On: 07-Jul-2014 12:58 MST by Harshal MCPHERSON MS, RN, Yu German Interdisciplinary Discharge Instructions [place] 1. Physician Name/Group : f/u with labs next week in [place] 1. Directions for follow up appointment : Patient to call for appointment 2. Physician Name/Group : f/u with Transplant Hepatology in [place] in next 1- 2 weeks 2. Directions for follow up appointment : Itinerary to be sent Seek emergency treatment for : Chest Pain, Shortness of Breath, Chills, Pain not relieved by medication Call your physician for : Temperature > 100.4 (38 celsius) Contact information/Calling instructions : Liver Transplant Nurse Coordinator, Other: [facility] Real Estate Lawyer Harshal MCPHERSON MS, RN, Yu German - 07-Jul-2014 12:58 MST Diet Discharge Diet : Regular Harshal MCPHERSON MS, RN, Yu German - 07-Jul-2014 12:58 [facility] Activity Instructions (AZ) General Activity Limitation/Instructions : No restrictions Harshal MCPHERSON MS, RN, Yu German - 07-Jul-2014 12:58 [facility] Special Instructions (AZ) Pain Management Discharge Instructions : Please do not use over the counter NSAIDS such as Ibuprofen, DO NOT drive or operate motor vehicle or equipment for 24 hours or until prescription pain medications have been stopped Medication General Instructions : Do NOT exceed 3 grams of Acetaminophen in 24 hours, Do NOT take Non-steroidal Anti-inflammatory Drugs(NSAIDs)[e.g.aspirin,ibuprofen,naproxen(also known as Advil,Aleve,M otrin,Ecotrin,Excedrin,etc.] Harshal MCPHERSON MS, RN, Yu German - 07-Jul-2014 12:58 [facility] Reference: [id number] OTELEGRAPH OPERATOR Miscellaneous - Conversion, Historical Provider Ser - 07/07/2014 9:00 AM MST Result Type: Hosp Skin Assessment/Gabino Score Result Date: 07 July 2014 09:00 MST Result Status: Auth (Verified) Result Title: Hosp Skin Assessment/Gabino Score Performed By: Shukri ELMORE, ChristaS.R.Anais, Lesa Redman on 07 July 2014 10:33 MST Verified By: Shukri ELMORE, Sampson.S.R.NDemetrius, Lesa Redman on 07 July 2014 10:33 MST *Final* Hosp Skin Assessment/Gabino Score Entered On: 07-Jul-2014 10:35 MST Performed On: 07-Jul-2014 09:00 MST by Shukri ELMORE, Arley.M.S.R.NDemetrius, Lesa Redman Hosp Skin Assess/Gabino Skin Score Gabino Sensory Perception : 4 = No Impairment Gabino Moisture : 4 = Rarely Moist Gabino Activity : 3 = Walks Occasionally Gabino Mobility : 3 = Slightly Limited Gabino Nutrition : 3 = Adequate Gabino Friction and Shear : 3 = No Apparent Problem Gabino Score : 20 Shukri ELMORE, Arley.M.S.R.NDemetrius, Lesa Redman - 07-Jul-2014 10:33 MST Reference: MCAF-[id number] Charlettecelllois - Mere Omalley - 07/07/2014 7:38 AM MST Result Type: Hosp Administrative Services Officer Nutrition Screen Result Date: 07 July 2014 07:38 MST Result Status: Auth (Verified) Result Title: Administrative Services Officer Nutrition Screening Performed By: Mere Omalley D.T.R. on 07 July 2014 07:38 MST Verified By: Mere Omalley D.T.R. on 07 July 2014 07:38 MST *Final* Administrative Services Officer Nutrition Screening Entered On: 07-Jul-2014 07:39 MST Performed On: 07-Jul-2014 07:38 MST by Mere Omalley D.T.R. Administrative Services Officer Nutrition Screening Medical Hx Overall dietary intake change : No change (SGA Score A) Percent weight change : Gain - <5% loss (SGA Score A) GI Overall impairment : None Nutrition Overall impairment : None (SGA Score A) Comments : Neutropenic fever with left oral ulceration and discomfort, and fevers prior to admissionwith chronic immunosuppression for repeated donor liver transplant. Good po intake. Follow-up in 4 days Mere Omalley D.T.R. - 07-Jul-2014 07:38 MST SGA Score - Loss of subcutaneous fat SGA Score - Loss of subcutaneous fat : Normal SGA Score - Muscle wasting : Normal SGA Score - Edema : Normal SGA Score - Ascites : Normal SGA Score - Skin breakdown : Normal Mere Omalley D.T.R. - 07-Jul-2014 07:38 MST SGA Rating : Well-nourished Mere Omalley D.T.R. 07-Jul-2014 07:38 [facility] Reference: [id number] OTELEGRAPH OPERATOR Cyrus - Tereza Garduno RHANK Wilson - 07/07/2014 6:15 AM MST Result Type: Chart Review Form Result Date: 07 July 2014 06:15 MST Result Status: Auth (Verified) Result Title: Chart Review Documentation [place] Performed By: Tereza Harris RN on 07 July 2014 06:15 MST Verified By: Tereza Harris RN on 07 July 2014 06:15 MST *Final* Chart Review Documentation [place] Entered On: 07-Jul-2014 06:15 MST Performed On: 07-Jul-2014 06:15 MST by Tereza Garduno RN Chart Review Documentation [place] Chart Reviewed for the Following [place] : 12 Hour Chart Review Completed Tereza Garduno RN - 07-Jul-2014 06:15 MST Reference: MCAF-[id number] ITO [place]ges - Tereza Garduno R.N., CHPN - 07/06/2014 9:00 PM MST Result Type: Hosp Skin Assessment/Gabino Score Result Date: 06 July 2014 21:00 MST Result Status: Auth (Verified) Result Title: Hosp Skin Assessment/Gabino Score Performed By: Tereza Harris RN on 06 July 2014 21:00 MST Verified By: Tereza Harris RN on 06 July 2014 21:00 MST *Final* Hosp Skin Assessment/Gabino Score Entered On: 06-Jul-2014 21:00 MST Performed On: 06-Jul-2014 21:00 MST by Tereza Garduno RN Hosp Skin Assess/Gabino Skin Score Gabino Sensory Perception : 4 = No Impairment Gabino Moisture : 4 = Rarely Moist Gabino Activity : 4 = Walks Frequently Gabino Mobility : 4 = No Limitations Gabino Nutrition : 3 = Adequate Gabino Friction and Shear : 3 = No Apparent Problem Gabino Score : 22 Tereza Garduno RN - 06-Jul-2014 21:00 MST Reference: [id number] OTELEGRAPH OPERATOR Cyrus - Francesca Amato R.N., RN-BC - 07/06/2014 5:54 PM MST Result Type: Chart Review Form Result Date: 06 July 2014 17:54 MST Result Status: Auth (Verified) Result Title: Chart Review Documentation [place] Performed By: Lm ELMORE RN-Francesca GARCIA on 06 July 2014 17:54 MST Verified By: Francesca Beaulieu RN on 06 July 2014 17:54 MST *Final* Chart Review Documentation [place] Entered On: 06-Jul-2014 17:54 MST Performed On: 06-Jul-2014 17:54 MST by Francesca Zuniga RN Chart Review Documentation [place] Chart Reviewed for the Following AZ : 12 Hour Chart Review Completed Francesca Zuniga RN - 06-Jul-2014 17:54 MST Reference: [id number] OTELEGRAPH OPERATOR Charlettecelllois - Miguelina Mason C.C.MDemetrius - 07/06/2014 4:48 PM MST Result Type: Hosp CaseMgmt Progress Note Result Date: 06 July 2014 16:48 MST Result Status: Auth (Verified) Result Title: Discharge Planning Screening Performed By: Miguelina Mason RN on 06 July 2014 16:48 MST Verified By: Miguelina Mason RN on 06 July 2014 16:48 MST *Final* Discharge Planning Screening Entered On: 06-Jul-2014 16:53 MST Performed On: 06-Jul-2014 16:48 MST by Miguelina Mason RN Case Management Screening Functional Screening - Grid Bed to Chair - Level of Function : No Problem Noted Dressing - Level of Function : No Problem Noted Feeding Self - Level of Function : No Problem Noted Personal Hygiene - Level of Function : No Problem Noted Stairs - Level of Function : No Problem Noted Walking Level Surface - Level of Function : No Problem Noted Miguelina Mason RN - 06-Jul-2014 16:48 MST Assistive Devices - Grid Cane Use : Device Not Used Crutch Use : Device Not Used Manual Wheelchair Use : Device Not Used Motorized Wheelchair Use : Device Not Used Rolling Walker Use : Device Not Used Specialty Bed Use : Device Not Used Standard Walker Use : Device Not Used Miguelina Mason RN - 06-Jul-2014 16:48 MST Discharge Destination : Family or Friends Home Patient needs help with forms : No Miguelina Mason RN - 06-Jul-2014 16:48 [facility] Patient Concerns - Grid Adjusting to Illness or Procedure : NO Primary Acidizer Water Well for Another Person : NO Cultural Needs : NO Effect of Illness/Hospital Stay on Family : NO Effect of Illness/Hospital Stay on You : NO Financial Needs : NO Amish Needs : NO Spiritual Needs : NO Miguelina Mason RN - 06-Jul-2014 16:48 [facility] Do you feel unsafe in your current relationship? : NO Is a partner from a previous relationship making you feel uncomfortable? : No Have you been hit, kicked, punched or otherwise hurt by someone in the past year? : No Psychiatric History : Bipolar Disorder, Depression, Inpatient Psychiatric Treatment, Stress Major Life Event : , Other: Second chance at life with liver transplant Miguelina Mason RN - 06-Jul-2014 16:48 MST Patient has Experienced - Grid Depression : NO Panic or Anxiety Attacks : NO Sleep Pattern Change : Yes Miguelina Mason RN - 06-Jul-2014 16:48 MST Nursing Admission Assessment - Case Mgmt : There DOES NOT APPEAR to be any high risk indicators for Case Management/Social Work intervention. However, if the patient's needs change, Case Management/Social Work will be available to assist. Discharge Planning Comments : CM met with pt. at bedside. Pt. is alert and oriented x 3. Verified pt. address in [place], [place]. Pt. lives alone. Pt. is s/p Liver transplant x 2 1998 and 05/2013. Pt. had traveled to [place] for a week to golf with friends. Pt. plans to return to [place] on Friday. CM reviewed case with following Medical team and plan will be per ENT recommendation to have pt. do mouth swish, Steroid taper will be initiated. Blood work scheduled for tomorrow and status regarding discharge will be determined then. Pt. verified he follows at [facility] in [place] and will follow up with his transplant team upon return. No further needs on discharge are identified. CM/CONSUMER EDUCATOR will continue to follow. Miguelina Mason RN - 06-Jul-2014 16:48 MST Reference: [facility]-[id number] OTELEGRAPH OPERATOR Miscellaneous - Юлия Welch MDIV - 07/06/2014 12:51 PM MST Result Type: Yasmeen Wesley Progress Note Result Date: 06 July 2014 12:51 MST Result Status: Auth (Verified) Result Title: Spiritual Assessment Performed By: JONEL Welch MDiv, Kathleen A on 06 July 2014 12:51 MST Verified By: JONEL Welch MDiv, Kathleen A on 06 July 2014 12:51 MST *Final* Spiritual Assessment Entered On: 06-Jul-2014 13:07 MST Performed On: 06-Jul-2014 12:51 MST by Юлия Looney Spiritual Assessment Accepts Spiritual Care : Yes Spiritual Assessment Referred By : Nurse Spiritual Assessment [facility] : Axel Reyna Spiritual Assessment Pentecostalism Communion : No Spiritual Assessment Spiritual Practices : Other: Attends scientology on major holidays. Spiritual Assessment Reason : Initial Visit, New Admission, Recent Loss Spiritual Assessment Issues Summary : Relational Concerns with Others, Other: Existential anxiety devendra relatively young man who has had 2 liver transplants Spiritual Assessment Interventions : Affirmation of Story of Hope, Grief Facilitation, Ministry of Presence, Orientation to [facility], Reflective Listening, Storytelling, Theological Reflection, Validation of Feeling/Questioning, Other: Pastoral blessing. Spiritual Assessment Visit Impression : Patient engaged readily with glass bulb machine adjuster. He easily processed his grief over his father and seems to bemanaging that well. He also brought up a thorny theological issue - the meaning and efficacy of prayer. And, he engaged at length in discussing this matter. He appreciated the dialogue. Said he didn't t hink he would need to talk with glass bulb machine adjuster again, I think I'll just trust the doctors to use the gifts God has given them to help me out of this. Spiritual Assessment Further Assessment Needed : No Spiritual Assessment Continued Support : Yes Spiritual Assessment Visit Frequency : Other: Per patient request. Spiritual Assessment Contact Local Clergy : No Spiritual Assessment Changes : Patient is in [place] from [place] for a golfing trip; developed pain and fever; admitted to hospital with neutropenic fever. Spiritual Assessment Experiences : Disappointed that he will not be able to catch his return flight to [place] on Friday. Understands that time is necessary to sort out the cause of his neutropenia and to keep him away from crowds in confined spaces to prevent an overwhelming infection. Spiritual Assessment Resources : Patient is unmarried; has many friends. Father 6 months ago after a 3-year stay in a fpc; mother still living in [place]; has a sister who lives near his mother, too. Mother has many friends so she is adjusting reasonably well to her 's loss due to their companionship. He was with his father when he ; just before he his father took his last breath, opened his eyes and looked at the patient. He found this strange and curiously comforting, like he could see me and he knew I was there with him. He believes he is coping well with his grief. Lost his oldest sister when he was 4; she suddenly after having her tonsils removed. Patient was raised Jain; stopped going when I was out on my own; does attend on major holidays. Patient believes in God but not as an glove pairer God that favors some people by answering their prayers and not answering others. He struggles with the concept of prayer and what it is all about; many people pray for him all the time and he can't understand why he's any more deserving of having prayers anwered than someone else. His serious liver problems have prompted him to reconsider his understanding of God and himself as a spiritual being. He is an intelligent, resourceful man with much support from family and friends. Spiritual Assessment Outcomes : He is hoping his current health situation will resolve without complications for his transplanted liver. Юлия Looney - 06-Jul-2014 12:51 MST Reference: [facility]-[id number] ITO Bridges - Francesca Amato R.N., RN-BC - 07/06/2014 7:30 AM MST Result Type: Hosp Skin Assessment/Gabino Score Result Date: 06 July 2014 07:30 MST Result Status: Auth (Verified) Result Title: Hosp Skin Assessment/Gabino Score Performed By: Francesca Beaulieu RN on 06 July 2014 10:39 MST Verified By: Francesca Beaulieu RN on 06 July 2014 10:39 MST *Final* Hosp Skin Assessment/Gabino Score Entered On: 06-Jul-2014 10:39 MST Performed On: 06-Jul-2014 07:30 MST by Francesca Zuniga RN Hosp Skin Assess/Gabino Skin Score Gabino Sensory Perception : 4 = No Impairment Gabino Moisture : 4 = Rarely Moist Gabino Activity : 4 = Walks Frequently Gabino Mobility : 4 = No Limitations Gabino Nutrition : 3 = Adequate Gabino Friction and Shear : 3 = No Apparent Problem Gabino Score : 22 Francesca Zuniga RN - 06-Jul-2014 10:39 MST Reference: [facility]-[id number] ITO Bridges - Tereza Garduno R.N., [facility] - 07/06/2014 6:14 AM MST Result Type: Chart Review Form Result Date: 06 July 2014 06:14 MST Result Status: Auth (Verified) Result Title: Chart Review Documentation [place] Performed By: Tereza Harris RN on 06 July 2014 06:14 MST Verified By: Tereza Harris RN on 06 July 2014 06:14 MST *Final* Chart Review Documentation [place] Entered On: 06-Jul-2014 06:14 MST Performed On: 06-Jul-2014 06:14 MST by Tereza Garduno RN Chart Review Documentation [place] Chart Reviewed for the Following AZ : 12 Hour Chart Review Completed Tereza Garduno RN - 06-Jul-2014 06:14 MST Reference: [id number] OTELEGRAPH OPERATOR Miscelllois - Tereza Garduno R.N. MAUREEN - 07/06/2014 6:06 AM MST Result Type: Pain Response Form Result Date: 06 July 2014 06:06 MST Result Status: Auth (Verified) Result Title: Pain Response Performed By: Tereza Harris RN on 06 July 2014 06:10 MST Verified By: Tereza Harris RN on 06 July 2014 06:10 MST *Final* Pain Response Entered On: 06-Jul-2014 06:10 MST Performed On: 06-Jul-2014 06:06 MST by Tereza Garduno RN Pain Response Pain Intensity : 3 Tereza Garduno RN - 06-Jul-2014 06:10 MST Reference: [id number] OTELEGRAPH OPERATOR Tereza Malik R.N., CHPN - 07/06/2014 12:37 AM MST Result Type: Pain Response Form Result Date: 06 July 2014 00:37 MST Result Status: Auth (Verified) Result Title: Pain Response Performed By: Tereza Harris RN on 06 July 2014 02:52 MST Verified By: Tereza Harris RN on 06 July 2014 02:52 MST *Final* Pain Response Entered On: 06-Jul-2014 02:52 MST Performed On: 06-Jul-2014 00:37 MST by Tereza Garduno RN Pain Response Pain Intensity : 3 Tereza Garduno RN - 06-Jul-2014 02:52 MST Reference: [id number] ITO Bridges - Tereza Garduno R.N., CHPN - 07/05/2014 9:55 PM MST Result Type: Pain Response Form Result Date: 05 July 2014 21:55 MST Result Status: Auth (Verified) Result Title: Pain Response Performed By: Tereza Harris RN on 05 July 2014 21:20 MST Verified By: Tereza Harris RN on 05 July 2014 21:20 MST *Final* Pain Response Entered On: 05-Jul-2014 21:20 MST Performed On: 05-Jul-2014 21:55 MST by Tereza Garduno RN Pain Response Medication NOT Given for Pain : Yes Tereza Garduno RN - 05-Jul-2014 21:20 MST Reference: [id number] ITO [place] - Tereza Garduno R.N., CHPN - 07/05/2014 8:35 PM MST Result Type: Hosp Skin Assessment/Gabino Score Result Date: 05 July 2014 20:35 MST Result Status: Auth (Verified) Result Title: Hosp Skin Assessment/Gabino Score Performed By: Tereza Harris RN on 05 July 2014 20:35 MST Verified By: Tereza Harris RN on 05 July 2014 20:35 MST *Final* Hosp Skin Assessment/Gabino Score Entered On: 05-Jul-2014 20:35 MST Performed On: 05-Jul-2014 20:35 MST by Tereza Garduno RN Hosp Skin Assess/Gabino Skin Score Gabino Sensory Perception : 4 = No Impairment Gabino Moisture : 4 = Rarely Moist Gabino Activity : 4 = Walks Frequently Gabino Mobility : 4 = No Limitations Gabino Nutrition : 3 = Adequate Gabino Friction and Shear : 3 = No Apparent Problem Gabino Score : 22 Tereza Garduno RN - 05-Jul-2014 20:35 MST Reference: [facility]-[id number] OTELEGRAPH OPERATOR Miscellaneous - Conversion, Historical Provider Ser - 07/05/2014 6:44 PM MST Result Type: Readmission Score Result Date: 05 July 2014 18:44 MST Result Status: Auth (Verified) Performed By: SYSTEM on 05 July 2014 20:44 EST Verified By: SYSTEM on 05 July 2014 20:44 EST *Final* Result Note by SYSTEM on 05 July 2014 20:44 EST Created by Discern Expert rule- __READMIT_CALC. READMISSION RISK SCORES Home Meds=2 Emergent Admission=3 Depression=2 Dialysis=3 Total Score=10 Score 0-9 = Low risk Score 10-14 = Intermediate risk Score >= 15 = High risk Reference: [id number] Miscellaneous - Francesca Amato R.N., CATARINA-RADHA - 07/05/2014 6:16 PM MST Result Type: Chart Review Form Result Date: 05 July 2014 18:16 MST Result Status: Auth (Verified) Result Title: Chart Review Documentation [place] Performed By: Francesca Beaulieu RN on 05 July 2014 18:16 MST Verified By: Francesca Beaulieu RN on 05 July 2014 18:16 MST *Final* Chart Review Documentation [place] Entered On: 05-Jul-2014 18:16 MST Performed On: 05-Jul-2014 18:16 MST by Fracnesca Zuniga RN Chart Review Documentation [place] Chart Reviewed for the Following [place] : 12 Hour Chart Review Completed Francesca Zuniga RN - 05-Jul-2014 18:16 MST Reference: [id number] OTELEGRAPH OPERATOR Miscellaneous - Conversion, Historical Provider Ser - 07/05/2014 5:37 PM MST Result Type: Readmission Score Result Date: 05 July 2014 17:37 MST Result Status: Auth (Verified) Performed By: SYSTEM on 05 July 2014 19:37 EST Verified By: SYSTEM on 05 July 2014 19:37 EST *Final* Result Note by SYSTEM on 05 July 2014 19:37 EST Created by Discern Expert rule- MC__READMIT_CALC. READMISSION RISK SCORES Emergent Admission=3 Depression=2 Dialysis=3 Total Score=8 Score 0-9 = Low risk Score 10-14 = Intermediate risk Score >= 15 = High risk Reference: [id number] ACP (Advance Care Planning) - Francesca Amato R.N., RN-RADHA - 07/05/2014 5:37 PM MST Result Type: Advanced Directive Form Result Date: 05 July 2014 17:37 MST Result Status: Auth (Verified) Result Title: Advanced Directives Performed By: Francesca Beaulieu RN on 05 July 2014 17:37 MST Verified By: Francesca Beaulieu RN on 05 July 2014 17:37 MST *Final* Advanced Directives Entered On: 05-Jul-2014 17:38 MST Performed On: 05-Jul-2014 17:37 MST by Francesca Zuniga RN Advance Directive Status Advanced Directives? : Yes Patient Has Advance Directive : Advance Directive not presented. Patient advised of responsibility to provide copy. Advance Directive Additional Comments : Pt has copy of advance directive at his home in [place] and is unable to provide copy at this time. Francesca Zuniga RN - 05-Jul-2014 17:37 MST Reference: [facility]-[id number] OTELEGRAPH OPERATOR Miscellaneous - Pita Wood R.R.T., R.C.P. - 07/05/2014 5:24 PM MST Result Type: RT Incentive Spirometry Form Result Date: 05 July 2014 17:24 MST Result Status: Auth (Verified) Result Title: RT Incentive Spirometry Performed By: Berny SIMEON RCP, Lindsay A. on 05 July 2014 17:24 MST Verified By: Berny SIMEON RCP, Lindsay A. on 05 July 2014 17:24 MST *Final* RT Incentive Spirometry Entered On: 05-Jul-2014 17:24 MST Performed On: 05-Jul-2014 17:24 MST by Berny SIMEON RCP, Lindsay A RT Patient Location Patient location : 7 Berny SIMEON RCP, Lindsay A - 05-Jul-2014 17:24 MST RT Incentive Spirometry IS Treatment Type : Incentive Spirometry (Comment: RN did IS instruct. [Berny SIMEON RCP, Lindsay A - 05-Jul-2014 17:24 MST] ) IBW/Predicted Volumes Male : IBW/Predicted Volume Male # of Inspirations : 3 Incentive Spirometry/ml : 2,500 mL IS Effort : Fair IS Protocol : Self Administer Berny SIMEON RCP, Lindsay A - 05-Jul-2014 17:24 MST RT IBW/Predicted Volumes Male Height (Adult) : 177 cm(Converted to: 5 ft 10 Inch) IBW Male : 72.3 kg Predicted Minimum Volume ml VC Male : 722.76 mL Predicted Volume ml VC Male : 1,084.13 mL Berny SIMEON RCP, Lindsay A - 05-Jul-2014 17:24 MST Reference: [id number] OTELEGRAPH OPERATOR Charlettecelllois - Francesca Amato RDemetriusNDemetrius, CATARINA-RADHA - 07/05/2014 5:12 PM MST Result Type: Pain Response Form Result Date: 05 July 2014 17:12 MST Result Status: Auth (Verified) Result Title: Pain Response Performed By: Francesca Beaulieu RN on 05 July 2014 18:20 MST Verified By: Francesca Beaulieu RN on 05 July 2014 18:20 MST *Final* Pain Response Entered On: 05-Jul-2014 18:21 MST Performed On: 05-Jul-2014 17:12 MST by Francesac Zuniga RN Pain Response Pain Type : Aching Pain Location : head, tongue Pain Intensity : 5 Pain Frequency : Constant Non-Verbal Manifestation : Calm Pain Relief Goal : 5 Psychosocial Behavior : Cooperative Pain Intervention : Environmental Stimuli Reduced, Lights dimmed, Quiet Room, Rest Francesca Zuniga RN - 05-Jul-2014 18:20 MST Reference: [id number] ITO Bridges - Shellie Westbrook RDemetriusNDemetrius - 07/05/2014 3:25 PM MST Result Type: ED Transport Off Unit Result Date: 05 July 2014 15:25 MST Result Status: Modified Result Title: ED Transport Off Unit Performed By: Shellie Westbrook RN on 05 July 2014 15:26 MST Verified By: Shellie Westbrook RN on 05 July 2014 15:26 MST *Final* ED Transport Off Unit Entered On: 05-Jul-2014 15:26 MST Performed On: 05-Jul-2014 15:25 MST by Shellie Westbrook RN Transport Off Unit Time Returned to Unit : 05-Jul-2014 15:50 MST Shellie Westbrook RN - 05-Jul-2014 15:51 MST Time Transported Off Unit : 05-Jul-2014 15:25 MST Transfer Off Unit Accompanied by : Transport Location Transported to : Radiology Reason Off Unit : Xray Equipment Sent with Patient : IV Shellie Westbrook RN - 05-Jul-2014 15:26 MST Reference: [id number] OTELEGRAPH OPERATOR Cyrus - Shellie Westbrook RDemetriusNDemetrius - 07/05/2014 1:00 PM MST Result Type: ED Transport Off Unit Result Date: 05 July 2014 13:00 MST Result Status: Auth (Verified) Result Title: ED Transport Off Unit Performed By: Shellie Westbrook RN on 05 July 2014 13:22 MST Verified By: Shellie Westbrook RN on 05 July 2014 13:22 MST *Final* ED Transport Off Unit Entered On: 05-Jul-2014 13:22 MST Performed On: 05-Jul-2014 13:00 MST by Shellie Westbrook RN Transport Off Unit Time Transported Off Unit : 05-Jul-2014 13:00 MST Transfer Off Unit Accompanied by : Transport Time Returned to Unit : 05-Jul-2014 13:20 MST Location Transported to : Radiology Reason Off Unit : CT Scan Equipment Sent with Patient : IV Shellie Westbrook RN - 05-Jul-2014 13:22 MST Reference: [id number] OTELEGRAPH OPERATOR Miscellaneous - Yoselin Webster, R.N. - 07/05/2014 10:27 AM MST Result Type: ED Irrigation Manager Application Result Date: 05 July 2014 10:27 MST Result Status: Auth (Verified) Result Title: ED Irrigation Manager Application Performed By: Yoselin Webster RN on 05 July 2014 11:42 MST Verified By: Yoselin Webster RN on 05 July 2014 11:42 MST *Final* ED Irrigation Manager Application Entered On: 05-Jul-2014 11:42 MST Performed On: 05-Jul-2014 10:27 MST by Yoselin Webster RN ED Irrigation Manager Application ED Irrigation Manager Applied : Yes ED Type Irrigation Manager Applied : 5 Lead Yoselin Webster RN - 05-Jul-2014 11:42 MST Reference: [id number] OTELEGRAPH OPERATOR documented in this encounter Plan of Treatment Upcoming Encounters Date Type Specialty Care Team Description 04/24/2022 Appointment Laboratory Medicine Scott Granger P.A.-C. [address] [place] [address] 04/25/2022 Office Visit Otorhinolaryngology Dex Matta APRN, C.N.P., M.S.N. [address] [place] [phone] 05/08/2022 Appointment Laboratory Medicine Scott Granger P.A.-C. [address] [place] [phone] 05/08/2022 Clinical Admitting/Central Communication Scheduling 05/10/2022 Appointment Radiology Jeremie Rose M.D. [address] [place] [phone] 05/10/2022 Comprehensive Visit Orthopedic Surgery Warner Graves M.D. [address] [place] [phone] 05/22/2022 Appointment Laboratory Medicine Scott Granger P.A.-C. [address] [place] [phone] 06/05/2022 Appointment Laboratory Medicine Scott Granger P.A.-C. [address] [place] [phone] 06/19/2022 Appointment Laboratory Medicine Scott Granger P.A.-C. [address] [place] [phone] 07/03/2022 Appointment Laboratory Medicine Scott Granger P.A.-C. [address] [place] [phone] 07/17/2022 Appointment Laboratory Medicine Scott Granger P.A.-C. [address] [place] [phone] 07/31/2022 Appointment Laboratory Medicine Scott Granger P.A.-C. [address] [place] [phone] 08/14/2022 Appointment Laboratory Medicine Scott Granger P.A.-C. [address] [place] [phone] 08/28/2022 Appointment Laboratory Medicine Scott Granger P.A.-C. [address] [place] [phone] documented as of this encounter Procedures Procedure Name Priority Date/Time Associated Comments Diagnosis HX ESTIMATED GLOMERULAR Routine 07/07/2014 6:58 R esults for this FILTRATION RATE AM MST procedure ar e in the results section. CBC COMMENT Routine 07/07/2014 6:58 Results for this AM MST procedure are i n the results section. SPECIAL SMEAR EVAL Routine 07/07/2014 6:58 Result s for this AM MST procedure are i n the results section. TECHNOLOGIST REVIEW Routine 07/07/2014 6:58 Resul ts for this AM MST procedure are i n the results section. NUCLEATED RBC Routine 07/07/2014 6:58 Results for this AM MST procedure are i n the results section. ELECTROLYTE PANEL, S Routine 07/07/2014 6:58 Resu lts for this AM MST procedure are i n the results section. TACROLIMUS LEVEL, B Routine 07/07/2014 6:58 Resul ts for this AM MST procedure are i n the results section. PROTHROMBIN TIME (PT), P Routine 07/07/2014 6:58 Results for this AM MST procedure are i n the results section. CBC WITH DIFFERENTIAL, B Routine 07/07/2014 6:58 Results for this AM MST procedure are i n the results section. BUN (BLOOD UREA Routine 07/07/2014 6:58 Results f or this NITROGEN), S/P AM MST procedure are in the results section. ALANINE AMINOTRANSFERASE Routine 07/07/2014 6:58 Results for this (ALT), S/P AM MST procedure are i n the results section. ASPARTATE Routine 07/07/2014 6:58 Results for this AMINOTRANSFERASE (AST), AM MST proc edure are in S/P the results section. PROTEIN, TOTAL, S/P Routine 07/07/2014 6:58 Resul ts for this AM MST procedure are i n the results section. ALKALINE PHOSPHATASE, Routine 07/07/2014 6:58 Res ults for this S/P AM MST procedure are i n the results section. LACTATE DEHYDROGENASE Routine 07/07/2014 6:58 Res ults for this (LD), S AM MST procedure are i n the results section. GAMMA-GLUTAMYLTRANSFERAS Routine 07/07/2014 6:58 Results for this E (GGT), S/P AM MST procedure are i n the results section. GLUCOSE, RANDOM, S/P Routine 07/07/2014 6:58 Resu lts for this AM MST procedure are i n the results section. CREATININE WITH EGFR, Routine 07/07/2014 6:58 Res ults for this S/P AM MST procedure are i n the results section. CALCIUM, TOT, S/P Routine 07/07/2014 6:58 Results for this AM MST procedure are i n the results section. BILIRUBIN DIRECT, S/P Routine 07/07/2014 6:58 Res ults for this AM MST procedure are i n the results section. BILIRUBIN, TOT, S/P Routine 07/07/2014 6:58 Resul ts for this AM MST procedure are i n the results section. ALBUMIN, S/P Routine 07/07/2014 6:58 Results for this AM MST procedure are i n the results section. HX ESTIMATED GLOMERULAR Routine 07/06/2014 7:04 R esults for this FILTRATION RATE AM MST procedure ar e in the results section. MANUAL DIFFERENTIAL, B Routine 07/06/2014 7:04 Re sults for this AM MST procedure are i n the results section. TECHNOLOGIST REVIEW Routine 07/06/2014 7:04 Resul ts for this AM MST procedure are i n the results section. NUCLEATED RBC Routine 07/06/2014 7:04 Results for this AM MST procedure are i n the results section. HIV-1/-2 AG AND AB Routine 07/06/2014 7:04 Result s for this SCREEN AM MST procedure are i n the results section. ELECTROLYTE PANEL, S Routine 07/06/2014 7:04 Resu lts for this AM MST procedure are i n the results section. TACROLIMUS LEVEL, B Routine 07/06/2014 7:04 Resul ts for this AM MST procedure are i n the results section. PROTHROMBIN TIME (PT), P Routine 07/06/2014 7:04 Results for this AM MST procedure are i n the results section. CBC WITH DIFFERENTIAL, B Routine 07/06/2014 7:04 Results for this AM MST procedure are i n the results section. BUN (BLOOD UREA Routine 07/06/2014 7:04 Results f or this NITROGEN), S/P AM MST procedure are in the results section. T3 (TRIIODOTHYRONINE), Routine 07/06/2014 7:04 Re sults for this FREE, S AM MST procedure are i n the results section. ALANINE AMINOTRANSFERASE Routine 07/06/2014 7:04 Results for this (ALT), S/P AM MST procedure are i n the results section. ASPARTATE Routine 07/06/2014 7:04 Results for this AMINOTRANSFERASE (AST), AM MST proc edure are in S/P the results section. THYROID-STIMULATING Routine 07/06/2014 7:04 Resul ts for this HORMONE-SENSITIVE AM MST procedure are in (S-TSH) the results section. T4 (THYROXINE), TOT Routine 07/06/2014 7:04 Resul ts for this ONLY, S AM MST procedure are i n the results section. PROTEIN, TOTAL, S/P Routine 07/06/2014 7:04 Resul ts for this AM MST procedure are i n the results section. ALKALINE PHOSPHATASE, Routine 07/06/2014 7:04 Res ults for this S/P AM MST procedure are i n the results section. LACTATE DEHYDROGENASE Routine 07/06/2014 7:04 Res ults for this (LD), S AM MST procedure are i n the results section. GAMMA-GLUTAMYLTRANSFERAS Routine 07/06/2014 7:04 Results for this E (GGT), S/P AM MST procedure are i n the results section. GLUCOSE, RANDOM, S/P Routine 07/06/2014 7:04 Resu lts for this AM MST procedure are i n the results section. CREATININE WITH EGFR, Routine 07/06/2014 7:04 Res ults for this S/P AM MST procedure are i n the results section. CALCIUM, TOT, S/P Routine 07/06/2014 7:04 Results for this AM MST procedure are i n the results section. BILIRUBIN DIRECT, S/P Routine 07/06/2014 7:04 Res ults for this AM MST procedure are i n the results section. BILIRUBIN, TOT, S/P Routine 07/06/2014 7:04 Resul ts for this AM MST procedure are i n the results section. ALBUMIN, S/P Routine 07/06/2014 7:04 Results for this AM MST procedure are i n the results section. VANCOMYCIN, TROUGH, S Routine 07/06/2014 7:04 Res ults for this AM MST procedure are i n the results section. DX CHEST AP OR PA AND Routine 07/05/2014 3:43 Res ults for this LATERAL 2 VIEWS PM MST procedure ar e in the results section. DX PANOREX TEETH Routine 07/05/2014 3:42 Results for this PM MST procedure are i n the results section. CULTURE, HERPES Routine 07/05/2014 3:20 Results f or this PM MST procedure are i n the results section. CMV DNA DETECT/QUANT, P Routine 07/05/2014 3:01 R esults for this PM MST procedure are i n the results section. COCCIDIOIDES, IGM/IGG, Routine 07/05/2014 3:01 Re sults for this EIA, S PM MST procedure are i n the results section. LILLI-MON VIRUS PCR, Routine 07/05/2014 3:01 R esults for this QUANT, B PM MST procedure are i n the results section. CT NECK WITHOUT IV Routine 07/05/2014 1:16 Result s for this CONTRAST PM MST procedure are i n the results section. BACTERIA / MARRY Routine 07/05/2014 10:54 Resul ts for this CULTURE, BLOOD AM MST procedure are in the results section. BACTERIA / MARRY Routine 07/05/2014 10:49 Resul ts for this CULTURE, BLOOD AM MST procedure are in the results section. MANUAL DIFFERENTIAL, B Routine 07/05/2014 10:48 R esults for this AM MST procedure are i n the results section. TECHNOLOGIST REVIEW Routine 07/05/2014 10:48 Resu lts for this AM MST procedure are i n the results section. NUCLEATED RBC Routine 07/05/2014 10:48 Results fo r this AM MST procedure are i n the results section. ELECTROLYTE PANEL, S Routine 07/05/2014 10:48 Res ults for this AM MST procedure are i n the results section. EHRLICHIA/ANAPLASMA PCR, Routine 07/05/2014 10:48 Results for this BLOOD AM MST procedure are i n the results section. EHRLICHIA AB PANEL Routine 07/05/2014 10:48 Resul ts for this AM MST procedure are i n the results section. CBC WITH DIFFERENTIAL, B Routine 07/05/2014 10:48 Results for this AM MST procedure are i n the results section. BUN (BLOOD UREA Routine 07/05/2014 10:48 Results for this NITROGEN), S/P AM MST procedure are in the results section. ALANINE AMINOTRANSFERASE Routine 07/05/2014 10:48 Results for this (ALT), S/P AM MST procedure are i n the results section. ASPARTATE Routine 07/05/2014 10:48 Results for this AMINOTRANSFERASE (AST), AM MST proc edure are in S/P the results section. PROTEIN, TOTAL, S/P Routine 07/05/2014 10:48 Resu lts for this AM MST procedure are i n the results section. ALKALINE PHOSPHATASE, Routine 07/05/2014 10:48 Re sults for this S/P AM MST procedure are i n the results section. LIPASE, S/P Routine 07/05/2014 10:48 Results for this AM MST procedure are i n the results section. LACTATE, B/P Routine 07/05/2014 10:48 Results for this AM MST procedure are i n the results section. GLUCOSE, RANDOM, S/P Routine 07/05/2014 10:48 Res ults for this AM MST procedure are i n the results section. CREATININE WITH EGFR, Routine 07/05/2014 10:48 Re sults for this S/P AM MST procedure are i n the results section. BILIRUBIN, TOT, S/P Routine 07/05/2014 10:48 Resu lts for this AM MST procedure are i n the results section. ALBUMIN, S/P Routine 07/05/2014 10:48 Results for this AM MST procedure are i n the results section. ECG 12-LEAD WITH RHYTHM Routine 07/05/2014 12:00 STRIP AM MST documented in this encounter Results Pathologist Comment (07/07/2014 6:58 AM MST) [facility] Method Time Signature Technologist PB SeeComment HX Smear Review [place] NA CONVERSION Comment: 3-5-HPF Elliptocytes. Dohle bodies prese nt. Toxic-reactive neutrophils present. Slight granulocytic left-shift including metamyelocytes and myelocytes present. Normocytic normochro bryon anemia. Slight granulocytic left shift with toxic-reactive changes i n neutrophils. No circulating blasts. Find ings suggestive of growth factor effect. Clinical correlation recommended . Smear reviewed and interpreted by Wade Sykes M.D., Ph.D. Specimen Anatomical Collection Method Collection Time Receive d Time (Source) Location / / Volume Laterality 07/07/2014 6:58 AM 5 6:58 MST AM MST Historical Provider LAB PATHOLOGY/CYTOLOGY ORDER OSMEL Performing Organization Address City/State/ZIP Code Phon e Number HX [place] CONVERSION Special Smear Eval (07/07/2014 6:58 AM MST) Analysis Performed At Patho logist Time Signature [facility] Result Performed HX [place] A CONVERSION Specimen Anatomical Collection Method Collection Time Receive d Time (Source) Location / / Volume Laterality 07/07/2014 6:58 AM 5 6:58 MST AM MST Historical Provider LAB BLOOD ADD-ON Performing Organization Address City/State/ZIP Code Phon e Number HX [place] CONVERSION CBC Comment (07/07/2014 6:58 AM MST) Component Value Ref Test Analysis Performed At Patholo gist Range Method Time Signature CBC Comment Also see HX hematopathologist [place] review below. JAT[place] CONVERSION Specimen Anatomical Collection Method Collection Time Receive d Time (Source) Location / / Volume Laterality 07/07/2014 6:58 AM 5 6:58 MST AM MST Historical Provider LAB BLOOD NON ADD-ON Performing Organization Address City/State/ZIP Code Phon e Number HX [place] CONVERSION Nucleated RBC (07/07/2014 6:58 AM MST) P athologist Signature Nucleated RBC 0.0 /100 WBC HX [place] CONVERSION Specimen Anatomical Collection Method Collection Time Receive d Time (Source) Location / / Volume Laterality 07/07/2014 6:58 AM 5 6:58 MST AM MST Historical Provider LAB BLOOD NON ADD-ON Performing Organization Address City/State/ZIP Code Phon e Number HX [place] CONVERSION (ABNORMAL) CBC with Differential, Blood (07/07/2014 6:58 AM MST) [employer] Method Time Signature Eosinophils 0.09 0.00 - HX 0.40 [place] x10(9)/L A CONVERSION Platelet Count 165 151 - 355 HX x10(9)/L [place] A CONVERSION RBC Distrib 12.6 11.8 - HX Width 15.6 % [place] A CONVERSION MCV 90.3 80.8 - HX 96.6 fL [place] A CONVERSION Erythrocytes 3.10 (L) 4.21 - HX 5.61 [place] x10(12)/L A CONVERSION Hemoglobin 9.3 (L) 13.5 - HX 17.5 g/dL [place] A CONVERSION Absolute 7.37 (H) 1.40 - HX Neutrophils 6.60 [place] x10(9)/L A CONVERSION Comment: Granulocytic left-shift (metamyelocytes, myelocytes, and; progranulocytes) present comprising for <10% of WBC count . Immature granulocytes account for the difference between the WBC count and sum of the absolute values reported in the WBC differential. Manual WBC differential cell count not p erformed.; Monocytes 3.25 (H) 0.20 - 0.80 x10(9)/L HX [place] CONVERSION Leukocytes 12.2 (H) 4.2 - 10.2 x10(9)/L HX [place] A/[place] CONVERSION Hematocrit 28.0 (L) 38.8 - 50.0 % HX [place] JATIN CONVERSION Lymphocytes 1.22 1.00 - 3.40 x10(9)/L HX [place] CONVERSION Absolute Basophil 0.03 0.00 - 0.20 x10(9)/L H X [place] CONVERSION Specimen Anatomical Collection Method Collection Time Receive d Time (Source) Location / / Volume Laterality 07/07/2014 6:58 AM 5 6:58 MST AM MST Historical Provider LAB BLOOD ADD-ON Performing Organization Address City/State/ZIP Code Phon e Number HX [place] CONVERSION GGT (Gamma-Glutamyltransferase) (07/07/2014 6:58 AM MST) Patholo gist Method Time Signature Gamma 33 12 - 48 HX Glutamyltransferase U/L [place] (GGT), S NA CONVERSION Specimen Anatomical Collection Method Collection Time Receive d Time (Source) Location / / Volume Laterality 07/07/2014 6:58 AM 5 6:58 MST AM MST Historical Provider LAB BLOOD ADD-ON Performing Organization Address City/State/ZIP Code Phon e Number HX [place] CONVERSION (ABNORMAL) Prothrombin Time, Plasma (07/07/2014 6:58 AM MST) P athologist Signature INR 1.10 HX [place] CONVERSION Comment: ADDITIONAL INFORMATIO N Therapeutic range: Standard Intensity INR (2.0 to 3.0) High Intensity INR (3.0 to 4.0) Prothrombin Time, P 14.4 (H) 11.8 - 14.2 sec HX F [place] CONVERSION Specimen Anatomical Collection Method Collection Time Receive d Time (Source) Location / / Volume Laterality 07/07/2014 6:58 AM 5 6:58 MST AM MST Historical Provider LAB BLOOD ADD-ON Performing Organization Address City/State/ZIP Code Phon e Number HX [place] CONVERSION Bilirubin, Direct (07/07/2014 6:58 AM MST) P athologist Signature Bilirubin, <0.2 0.0 - 0.3 HX Direct, S mg/dL [place]/ CONVERSION Specimen Anatomical Collection Method Collection Time Receive d Time (Source) Location / / Volume Laterality 07/07/2014 6:58 AM 5 6:58 MST AM MST Historical Provider LAB BLOOD ADD-ON Performing Organization Address City/State/ZIP Code Phon e Number HX [place] CONVERSION (ABNORMAL) Electrolyte Panel (07/07/2014 6:58 AM MST) P athologist Signature HCO3, Venous 20 (L) 22 - 29 HX mmol/L [place] CONVERSION Chloride, S 108 (H) 98 - 107 HX mmol/L [place] CONVERSION Anion Gap 12 7 - 15 HX [place] CONVERSION Potassium, S 4.3 3.6 - 5.2 HX mmol/L [place] CONVERSION Sodium, S 140 135 - 145 HX mmol/L [place] CONVERSION Specimen Anatomical Collection Method Collection Time Receive d Time (Source) Location / / Volume Laterality 07/07/2014 6:58 AM 5 6:58 MST AM MST Historical Provider LAB BLOOD ADD-ON Performing Organization Address City/State/ZIP Code Phon e Number HX [place] CONVERSION (ABNORMAL) BUN (Blood Urea Nitrogen) (07/07/2014 6:58 AM MST) Analysis Performed At Patho logist Time Signature BUN (Blood 35.0 (H) 8.0 - 24.0 HX Urea mg/dL [place] Nitrogen), S A CONVERSION Specimen Anatomical Collection Method Collection Time Receive d Time (Source) Location / / Volume Laterality 07/07/2014 6:58 AM 5 6:58 MST AM MST Historical Provider LAB BLOOD ADD-ON Performing Organization Address [facility] Phon e Number HX [place] CONVERSION (ABNORMAL) Creatinine with Estimated GFR (07/07/2014 6:58 AM MST) P athologist Signature Creatinine 2.1 (H) 0.8 - 1.3 HX mg/dL [place] CONVERSION Specimen Anatomical Collection Method Collection Time Receive d Time (Source) Location / / Volume Laterality 07/07/2014 6:58 AM 5 6:58 MST AM MST Historical Provider LAB BLOOD ADD-ON Performing Organization Address City/[facility]/[place] [facility] [place] HX [place] CONVERSION (ABNORMAL) Calcium, Total (07/07/2014 6:58 AM MST) P athologist Signature Calcium, 8.5 (L) 8.9 - 10.1 HX Total, S mg/dL [place] A CONVERSION Specimen Anatomical Collection Method Collection Time Receive d Time (Source) Location / / Volume Laterality 07/07/2014 6:58 AM 5 6:58 MST AM MST Historical Provider LAB BLOOD ADD-ON Performing Organization Address [facility]/ZIP [facility] [place] HX [place] CONVERSION (ABNORMAL) Glucose, Random (07/07/2014 6:58 AM MST) P athologist Signature Glucose, S 126 (H) 70 - 100 HX mg/dL [place] CONVERSION Specimen Anatomical Collection Method Collection Time Receive d Time (Source) Location / / Volume Laterality 07/07/2014 6:58 AM 5 6:58 MST AM MST Historical Provider LAB BLOOD TROPONIN Performing Organization Address City/State/ZIP Code Phon e Number HX [place] CONVERSION Albumin (07/07/2014 6:58 AM MST) P athologist Signature Albumin, S 3.7 3.5 - 5.0 HX g/dL [place] CONVERSION Specimen Anatomical Collection Method Collection Time Receive d Time (Source) Location / / Volume Laterality 07/07/2014 6:58 AM 5 6:58 MST AM MST Historical Provider LAB BLOOD ADD-ON Performing Organization Address [facility] Phon e Number HX [place] CONVERSION Bilirubin, Total (07/07/2014 6:58 AM MST) P athologist Signature Bilirubin, 0.2 -<=1.2 HX Total, S mg/dL [place] CONVERSION Specimen Anatomical Collection Method Collection Time Receive d Time (Source) Location / / Volume Laterality 07/07/2014 6:58 AM 5 6:58 MST AM MST Historical Provider LAB BLOOD ADD-ON Performing Organization Address City/[facility] Phon e Number HX [place] CONVERSION Alkaline Phosphatase (07/07/2014 6:58 AM MST) P athologist Signature Alkaline 92 45 - 115 HX Phosphatase, S U/L [place] CONVERSION Specimen Anatomical Collection Method Collection Time Receive d Time (Source) Location / / Volume Laterality 07/07/2014 6:58 AM 5 6:58 MST AM MST Historical Provider LAB BLOOD ADD-ON Performing Organization Address City/[facility]/ZIP Code Phon e Number HX [place] CONVERSION (ABNORMAL) Protein, Total (07/07/2014 6:58 AM MST) P athologist Signature Protein, 6.1 (L) 6.3 - 7.9 HX Total, S g/dL [place] A CONVERSION Specimen Anatomical Collection Method Collection Time Receive d Time (Source) Location / / Volume Laterality 07/07/2014 6:58 AM 5 6:58 MST AM MST Historical Provider LAB BLOOD ADD-ON Performing Organization Address City/[facility]/ZIP Code Phon e Number HX [place] CONVERSION AST (Aspartate Aminotransferase) (07/07/2014 6:58 AM MST) [facility] Method Time Signature Aspartate 21 8 - 48 HX Aminotransferase U/L [place] N (AST), S A CONVERSION Specimen Anatomical Collection Method Collection Time Receive d Time (Source) Location / / Volume Laterality 07/07/2014 6:58 AM 5 6:58 MST AM MST Historical Provider LAB BLOOD ADD-ON Performing Organization Address City/[facility]/ZIP Code Phon e Number HX [place] CONVERSION ALT (Alanine Aminotransferase) (07/07/2014 6:58 AM MST) [facility] Method Time Signature Alanine 23 7 - 55 HX Aminotransferase U/L [place] N (ALT), S A CONVERSION Specimen Anatomical Collection Method Collection Time Receive d Time (Source) Location / / Volume Laterality 07/07/2014 6:58 AM 5 6:58 MST AM MST Historical Provider LAB BLOOD ADD-ON Performing Organization Address City/[facility]/ZIP Code Phon e Number HX [place] CONVERSION Tacrolimus Level (07/07/2014 6:58 AM MST) P athologist Signature Tacrolimus, B 6.9 5.0-15.0 HX (Trough) [place] ng/mL CONVERSION Specimen Anatomical Collection Method Collection Time Receive d Time (Source) Location / / Volume Laterality 07/07/2014 6:58 AM 5 6:58 MST AM MST Historical Provider LAB BLOOD NON ADD-ON Performing Organization Address City/State/ZIP Code Phon e Number HX [place] CONVERSION (ABNORMAL) LD (Lactate Dehydrogenase) (07/07/2014 6:58 AM MST) [facility] Method Time Signature Lactate 292 (H) 122 - 222 HX Dehydrogenase U/L [place] (LD), S A CONVERSION Specimen Anatomical Collection Method Collection Time Receive d Time (Source) Location / / Volume Laterality 07/07/2014 6:58 AM 5 6:58 MST AM MST Historical Provider LAB BLOOD NON ADD-ON Performing Organization Address City/State/ZIP Code Phon e Number HX [place] CONVERSION (ABNORMAL) Estimated Glomerular Filtration Rate (07/07/2014 6:58 AM MST) Analysis Performed At Patho logist Time Signature HX Estimated 32.5 (L) mL/min HX GFR [place] A CONVERSION Comment: Added by Discern Expert This is most accurate for GFRs 60 ml/min /1.73m^2 or less Chronic kidney disease = less than 60 Kidney failure = less than 15 Normal population mean GFRs: ?Age ? Ave rage GFR ?20-29 ?116 m l/min/1.73m^2 ?30-39 ?107 m l/min/1.73m^2 ?40-49 ?99 ml /min/1.73m^2 ?50-59 ?93 ml /min/1.73m^2 ?60-69 ?85 ml /min/1.73m^2 ? 70+ ? 75 ml/min/1.73m^2 Specimen Anatomical Collection Method Collection Time Receive d Time (Source) Location / / Volume Laterality 07/07/2014 6:58 AM 5 6:58 MST AM MST Historical Provider LAB HISTORICAL ORDERS Performing Organization Address City/State/ZIP Code Phon e Number HX [place] CONVERSION HIV-1/-2 Ag and Ab Screen (07/06/2014 7:04 AM MST) Analysis Performed At Patho logist Time Signature HIV-1/-2 Ag Negative Negative HX and Ab Screen, [place] S A CONVERSION Comment: Negative result does not rule out HIV in fection. If acute HIV infection is suspected in a hi gh-risk individual, submit plasma specimen for H IV-1 RNA quantification test (HIVQU) and/or HIV-2 DNA/RNA test (FHV2Q). Test Performed by: [place] [address] [employer]: Bonny Frankel. Specimen Anatomical Collection Method Collection Time Receive d Time (Source) Location / / Volume Laterality 07/06/2014 7:04 AM 5 7:04 MST AM MST Sol Cornelius APRN, D.N.P., AGAVIDA-RADHA, M.S. LAB PR CROBIOLOGY - BLOOD ORDERABLES Performing Organization Address City/[facility] Phon e Number HX [place] CONVERSION Pathologist Comment (07/06/2014 7:04 AM MST) [facility] Method Time Signature Technologist PB SeeComment HX Smear Review [place] NA CONVERSION Comment: 3-5-HPF Elliptocytes. Dohle bodies prese nt. Toxic-reactive neutrophils present. Reported by hematology technolo [facility]. Specimen Anatomical Collection Method Collection Time Receive d Time (Source) Location / / Volume Laterality 07/06/2014 7:04 AM 5 7:04 MST AM MST Historical Provider LAB PATHOLOGY/CYTOLOGY ORDER OSMEL Performing Organization Address City/[facility] Phon e Number HX [place] CONVERSION (ABNORMAL) Manual Differential, B (07/06/2014 7:04 AM MST) [facility] Method Time Signature Nucleated RBC 0 /100 WBC HX [place] NA CONVERSION Monocytes 38 (H) 4 - 12 % HX [place] NA CONVERSION Neutrophilic Segs 8 (L) 42 - 75 % HX and Bands [place] NA CONVERSION Blasts 0 -<1 % HX [place] NA CONVERSION Promyelocytes 0 -<1 % HX [place] NA CONVERSION Myelocytes 0 -<1.0 % HX [place] NA CONVERSION Metamyelocytes 6 -<2.0 % HX [place] NA CONVERSION Basophils 0 0 - 4 % HX [place] NA CONVERSION Eosinophils 4 0 - 10 % HX [place] NA CONVERSION Lymphocytes 44 18 - 52 % HX [place] NA CONVERSION Manual Absolute 0.22 (C) x10(9)/L HX Neutrophil Count [place] NA CONVERSION Comment: [facility] ADDITIONAL INFORMATIO N The manual absolute neutrophil count is derived from a manual differential count and therefore is not exactly comparable to the automated absolute rui trophil count. Unclassified Cells 0 HX [place] CONVERSION Plasma Cells 0 % HX [place] A CONVERSION Specimen Anatomical Collection Method Collection Time Receive d Time (Source) Location / / Volume Laterality 07/06/2014 7:04 AM 5 7:04 MST AM MST Historical Provider LAB BLOOD ADD-ON Performing Organization Address City/State/ZIP Code Phon e Number HX [place] CONVERSION Nucleated RBC (07/06/2014 7:04 AM MST) P athologist Signature Nucleated RBC 0.0 /100 WBC HX [place] CONVERSION Comment: REVISED RESULTS PREVIOUSLY REPORTED A S DNR (Reported 07/06/2014 07:55 Result updated. Component results of this calcu lated test were edited) Specimen Anatomical Collection Method Collection Time Receive d Time (Source) Location / / Volume Laterality 07/06/2014 7:04 AM 5 7:04 MST AM MST Historical Provider LAB BLOOD NON ADD-ON Performing Organization Address City/State/ZIP Code Phon e Number HX [place] CONVERSION T4 (Thyroxine), Total Only (07/06/2014 7:04 AM MST) P athologist Signature T4 5.4 4.5 - 11.7 HX (Thyroxine), mcg/dL [place] Total Only, S CONVERSION Specimen Anatomical Collection Method Collection Time Receive d Time (Source) Location / / Volume Laterality 07/06/2014 7:04 AM 5 7:04 MST AM MST Sol Cornelius APRN, D.N.P., DOREEN, M.S. LAB BL OOD ADD-ON Performing Organization Address City/State/ZIP Code Phon e Number HX [place] CONVERSION T3 (Triiodothyronine), Free (07/06/2014 7:04 AM MST) P athologist Signature T3 2.2 2.0 - 3.5 HX (Triiodothyron pg/mL [place] ine), Free, S CONVERSION Comment: Test Performed by: [place] [address] [employer]: Bonny Frankel Specimen Anatomical Collection Method Collection Time Receive d Time (Source) Location / / Volume Laterality 07/06/2014 7:04 AM 5 7:04 MST AM MST Sol Cornelius APRN, D.N.P., DOREEN, M.S. LAB BL OOD ADD-ON Performing Organization Address City/State/ZIP Code Phon e Number HX [place] CONVERSION S-TSH (Thyroid-Stimulating Hormone - Sensitive) (07/06/2014 7:04 AM MST) P athologist Signature TSH, Sensitive 2.24 0.30 - HX 4.20 mIU/L [place] CONVERSION Specimen Anatomical Collection Method Collection Time Receive d Time (Source) Location / / Volume Laterality 07/06/2014 7:04 AM 5 7:04 MST AM MST Jonathan Pollock APRN.Evan., DOREEN, M.S. LAB BL OOD ADD-ON Performing Organization Address City/State/ZIP Code Phon e Number HX [place] CONVERSION (ABNORMAL) Vancomycin, Trough (07/06/2014 7:04 AM MST) P athologist Signature Vancomycin, 8.8 (L) 10.0 - HX Trough, S 20.0 [place] mcg/mL A CONVERSION Specimen Anatomical Collection Method Collection Time Receive d Time (Source) Location / / Volume Laterality 07/06/2014 7:04 AM 5 7:04 MST AM MST Sol Cornelius APRN, D.N.P., AGACNP-BC, M.S. LAB BL OOD NON ADD-ON Performing Organization Address City/State/ZIP Code Phon e Number HX [place] CONVERSION (ABNORMAL) Tacrolimus Level (07/06/2014 7:04 AM MST) athologist Signature Tacrolimus, B 2.7 (L) 5.0-15.0 HX (Trough) [place] ng/mL A CONVERSION Specimen Anatomical Collection Method Collection Time Receive d Time (Source) Location / / Volume Laterality 07/06/2014 7:04 AM 5 7:04 MST AM MST Historical Provider LAB BLOOD NON ADD-ON Performing Organization Address City/[facility]/ZIP Code Phon e Number HX [place] CONVERSION ALT (Alanine Aminotransferase) (07/06/2014 7:04 AM [facility]) [facility] Method Time Signature Alanine 15 7 - 55 HX Aminotransferase U/L [place] N (ALT), S A CONVERSION Specimen Anatomical Collection Method Collection Time Receive d Time (Source) Location / / Volume Laterality 07/06/2014 7:04 AM 5 7:04 MST AM MST Historical Provider LAB BLOOD ADD-ON Performing Organization Address City/State/ZIP Code Phon e Number HX [place] CONVERSION AST (Aspartate Aminotransferase) (07/06/2014 7:04 AM [facility]) [facility] gist Method Time Signature Aspartate 15 8 - 48 HX Aminotransferase U/L [place] N (AST), S A CONVERSION Specimen Anatomical Collection Method Collection Time Receive d Time (Source) Location / / Volume Laterality 07/06/2014 7:04 AM 5 7:04 MST AM MST Historical Provider LAB BLOOD ADD-ON Performing Organization Address City/State/ZIP Code Phon e Number HX [place] CONVERSION (ABNORMAL) Protein, Total (07/06/2014 7:04 AM [facility]) P athologist Signature Protein, 5.8 (L) 6.3 - 7.9 HX Total, S g/dL [place] A CONVERSION Specimen Anatomical Collection Method Collection Time Receive d Time (Source) Location / / Volume Laterality 07/06/2014 7:04 AM 5 7:04 MST AM MST Historical Provider LAB BLOOD ADD-ON Performing Organization Address City/State/ZIP Code Phon e Number HX [place] CONVERSION Alkaline Phosphatase (07/06/2014 7:04 AM [facility]) P athologist Signature Alkaline 77 45 - 115 HX Phosphatase, S U/L [place] CONVERSION Specimen Anatomical Collection Method Collection Time Receive d Time (Source) Location / / Volume Laterality 07/06/2014 7:04 AM 5 7:04 MST AM MST Historical Provider LAB BLOOD ADD-ON Performing Organization Address City/State/ZIP Code Phon e Number HX [place] CONVERSION Bilirubin, Total (07/06/2014 7:04 AM [facility]) P athologist Signature Bilirubin, 0.6 -<=1.2 HX Total, S mg/dL [place] CONVERSION Specimen Anatomical Collection Method Collection Time Receive d Time (Source) Location / / Volume Laterality 07/06/2014 7:04 AM 5 7:04 MST AM MST Historical Provider LAB BLOOD ADD-ON Performing Organization Address City/State/ZIP Code Phon e Number HX [place] CONVERSION Albumin (07/06/2014 7:04 AM [facility]) P athologist Signature Albumin, S 3.5 3.5 - 5.0 HX g/dL [place] CONVERSION Specimen Anatomical Collection Method Collection Time Receive d Time (Source) Location / / Volume Laterality 07/06/2014 7:04 AM 5 7:04 MST AM MST Historical Provider LAB BLOOD ADD-ON Performing Organization Address City/State/ZIP Code Phon e Number HX [place] CONVERSION (ABNORMAL) Glucose, Random (07/06/2014 7:04 AM [facility]) P athologist Signature Glucose, S 121 (H) 70 - 100 HX mg/dL [place] CONVERSION Specimen Anatomical Collection Method Collection Time Receive d Time (Source) Location / / Volume Laterality 07/06/2014 7:04 AM 5 7:04 MST AM MST Historical Provider LAB BLOOD TROPONIN Performing Organization Address City/State/ZIP Code Phon e Number HX [place] CONVERSION (ABNORMAL) Calcium, Total (07/06/2014 7:04 AM [facility]) athologist Signature Calcium, 7.9 (L) 8.9 - 10.1 HX Total, S mg/dL [place] A CONVERSION Specimen Anatomical Collection Method Collection Time Receive d Time (Source) Location / / Volume Laterality 07/06/2014 7:04 AM 5 7:04 MST AM MST Historical Provider LAB BLOOD ADD-ON Performing Organization Address City/State/[facility] Phon e Number HX [place] CONVERSION (ABNORMAL) Creatinine with Estimated GFR (07/06/2014 7:04 AM [facility]) athologist Signature Creatinine 2.6 (H) 0.8 - 1.3 HX mg/dL [place] CONVERSION Specimen Anatomical Collection Method Collection Time Receive d Time (Source) Location / / Volume Laterality 07/06/2014 7:04 AM 5 7:04 MST AM MST Historical Provider LAB BLOOD ADD-ON Performing Organization Address City/[facility] Phon e Number HX [place] CONVERSION (ABNORMAL) BUN (Blood Urea Nitrogen) (07/06/2014 7:04 AM [facility]) Analysis Performed At Patho logist Time Signature BUN (Blood 36.0 (H) 8.0 - 24.0 HX Urea mg/dL [place] Nitrogen), S A CONVERSION Specimen Anatomical Collection Method Collection Time Receive d Time (Source) Location / / Volume Laterality 07/06/2014 7:04 AM 5 7:04 MST AM MST Historical Provider LAB BLOOD ADD-ON Performing Organization Address City/State/[facility] Phon e Number HX [place] CONVERSION (ABNORMAL) Electrolyte Panel (07/06/2014 7:04 AM [facility]) P athologist Signature HCO3, Venous 21 (L) 22 - 29 HX mmol/L [place] CONVERSION Anion Gap 11 7 - 15 HX [place] CONVERSION Chloride, S 102 98 - 107 HX mmol/L [place] CONVERSION Potassium, S 4.3 3.6 - 5.2 HX mmol/L [place] CONVERSION Sodium, S 133 (L) 135 - 145 HX mmol/L [place] CONVERSION Specimen Anatomical Collection Method Collection Time Receive d Time (Source) Location / / Volume Laterality 07/06/2014 7:04 AM 5 7:04 MST AM MST Historical Provider LAB BLOOD ADD-ON Performing Organization Address City/State/ZIP Code Phon e Number HX [place] CONVERSION Bilirubin, Direct (07/06/2014 7:04 AM MST) P athologist Signature Bilirubin, 0.2 0.0 - 0.3 HX Direct, S mg/dL [place] CONVERSION Specimen Anatomical Collection Method Collection Time Receive d Time (Source) Location / / Volume Laterality 07/06/2014 7:04 AM 5 7:04 MST AM MST Historical Provider LAB BLOOD ADD-ON Performing Organization Address [facility] Phon e Number HX [place] CONVERSION (ABNORMAL) Prothrombin Time, Plasma (07/06/2014 7:04 AM MST) [facility] [employer] Method Time Signature Prothrombin 15.2 (H) 11.8 - HX Time, P 14.2 sec [place] A CONVERSION INR 1.18 HX [place] A CONVERSION Comment: ADDITIONAL INFORMATIO N Therapeutic range: Standard Intensity INR (2.0 to 3.0) High Intensity INR (3.0 to 4.0) Specimen Anatomical Collection Method Collection Time Receive d Time (Source) Location / / Volume Laterality 07/06/2014 7:04 AM 5 7:04 MST AM MST Historical Provider LAB BLOOD ADD-ON Performing Organization Address City/State/ZIP [facility] Number HX [place] CONVERSION GGT (Gamma-Glutamyltransferase) (07/06/2014 7:04 AM MST) [facility] Method Time Signature Gamma 29 12 - 48 HX Glutamyltransferase U/L [place] (GGT), S NA CONVERSION Specimen Anatomical Collection Method Collection Time Receive d Time (Source) Location / / Volume Laterality 07/06/2014 7:04 AM 5 7:04 MST AM MST Historical Provider LAB BLOOD ADD-ON Performing Organization Address City/State/ZIP Code Phon e Number HX [place] CONVERSION LD (Lactate Dehydrogenase) (07/06/2014 7:04 AM [facility]) [facility] [employer] Method Time Signature Lactate 154 122 - 222 HX Dehydrogenase U/L [place] (LD), S A CONVERSION Specimen Anatomical Collection Method Collection Time Receive d Time (Source) Location / / Volume Laterality 07/06/2014 7:04 AM 5 7:04 MST AM MST Historical Provider LAB BLOOD NON ADD-ON Performing Organization Address City/State/ZIP Code Phon e Number HX [place] CONVERSION (ABNORMAL) CBC with Differential, Blood (07/06/2014 7:04 AM [facility]) [facility] Method Time Signature MCV 89.7 80.8 - HX 96.6 fL [place] A CONVERSION Erythrocytes 2.90 (L) 4.21 - HX 5.61 [place] x10(12)/L A CONVERSION Platelet Count 149 (L) 151 - 355 HX x10(9)/L [place] A CONVERSION Leukocytes 2.8 (L) 4.2 - HX 10.2 [place] x10(9)/L A CONVERSION RBC Distrib 12.6 11.8 - HX Width 15.6 % [place] A CONVERSION Hematocrit 26.0 (L) 38.8 - HX 50.0 % [place] A CONVERSION Hemoglobin 8.8 (L) 13.5 - HX 17.5 g/dL [place] A CONVERSION Specimen Anatomical Collection Method Collection Time Receive d Time (Source) Location / / Volume Laterality 07/06/2014 7:04 AM 5 7:04 [facility] AM [facility] Historical Provider LAB BLOOD ADD-ON Performing Organization Address City/[facility]/ZIP Code Phon e Number HX [place] CONVERSION (ABNORMAL) Estimated Glomerular Filtration Rate (07/06/2014 7:04 AM [facility]) [facility] Time Signature HX Estimated 25.4 (L) mL/min HX GFR [place] A CONVERSION Comment: Added by Discern Expert This is most accurate for GFRs 60 ml/min /1.73m^2 or less Chronic kidney disease = less than 60 Kidney failure = less than 15 Normal population mean GFRs: ?Age ? Ave rage GFR ?20-29 ?116 m l/min/1.73m^2 ?30-39 ?107 m l/min/1.73m^2 ?40-49 ?99 ml /min/1.73m^2 ?50-59 ?93 ml /min/1.73m^2 ?60-69 ?85 ml /min/1.73m^2 ? 70+ ? 75 ml/min/1.73m^2 Specimen Anatomical Collection Method Collection Time Receive d Time (Source) Location / / Volume Laterality 07/06/2014 7:04 AM 5 7:04 MST AM MST Historical Provider LAB HISTORICAL ORDERS Performing Organization Address City/State/ZIP Code Phon e Number HX [place] CONVERSION DX Chest AP or PA and Lateral 2 Views (07/05/2014 3:43 PM MST) Anatomical Region Laterality Modality Chest, Thoracic RST LOS N/A Radiographic Magaly ging Specimen (Source) Anatomical Collection Method Collection Time Re ceived Time Location / / Volume Laterality 07/05/2014 3:43 PM MST Impressions 07/05/2014 3:51 PM MST The heart size is normal. ??No focal con solidation.. No ??pleural effusion. Nodular opacity right base may be superi mposition. Suggest comparison to priors is possible. In the absence of prior, imaging followup with bilateral frontal shallow oblique films (5 degrees) is suggested to distinguish nodule from superimposition Old right clavicular fracture. Electronically signed by: ?? Leonid Interiano M.D. 05-Jul-2014 15:5 1 Narrative 07/05/2014 3:51 PM MST Indications: fever ORIGINAL REPORT - 05-Jul-2014 15:51:00 Chest, PA+Lateral CLINICAL HISTORY:Fever. COMPARISON: None. Procedure Note Leonid Interiano M.D. - 02/14/2018Form atting of this note might be different from the original. Indications: fever ORIGINAL REPORT - 05-Jul-2014 15:51:00 Chest, PA+Lateral CLINICAL HISTORY:Fever. COMPARISON: None. IMPRESSION: The heart size is normal. No focal conso lidation.. No pleural effusion. Nodular opacity right base may be superi mposition. Suggest comparison to priors is possible. In the absence of prior, imaging followup with bilateral frontal shallow oblique films (5 degrees) is suggested to distinguish nodule from superimposition Old right clavicular fracture. Electronically signed by: Leonid Interiano M.D. 05-Jul-2014 15:5 1 Bashir Pollock APRN.N.PDemetrius, AGAKAYLIEP-RADHA, M.S. IMG DI AGNOSTIC IMAGING PROCEDURES DX Panorex Teeth (07/05/2014 3:42 PM [facility]) Anatomical Region Laterality Modality Skull, Jaw, Neuroradiology RST LOS N/A Radio graphic Imaging Specimen (Source) Anatomical Collection Method Collection Time Re ceived Time Location / / Volume Laterality 07/05/2014 3:42 PM MST Narrative 07/05/2014 3:53 PM [facility] Indications: neutropenic fever with oral ulcer ??Tech: pt reports pain from ulcer on Left, spreading to entire side of jaw ORIGINAL REPORT - 05-Jul-2014 15:53:00 Panorex Dental amalgam. The roots of the teeth a re unremarkable. Electronically signed by: ?? Cam Adan M.D. 05-Jul-2014 15:53 Procedure Note Mango Adan M.D. - 02/14/2018Formatt ing of this note might be different from the original. Indications: neutropenic fever with oral ulcer Tech: pt reports pain from ulcer on Left, spreading to entire side of jaw ORIGINAL REPORT - 05-Jul-2014 15:53:00 Panorex Dental amalgam. The roots of the teeth a re unremarkable. Electronically signed by: Cma Adan M.D. 05-Jul-2014 15:53 Bashir Pollock APRN.N.PDemetrius, CAITLIN-BC, M.S. IMG DI AGNOSTIC IMAGING PROCEDURES Culture, Herpes (07/05/2014 3:20 PM MST) Specimen Anatomical Collection Method Collection Time Receive d Time (Source) Location / / Volume Laterality 07/05/2014 3:20 PM 5 3:20 MST PM MST Narrative HX [place] CONVERSION - 07/07/19 15 11:39 AM MST SOURCE: MOUTH, SWAB ORAL CANKER SORE LEFT ? COLLECTED: 07/05/2014 15:20 ? REC EIVED: 07/05/2014 15:38 CULTURE, HERPES ?FINAL ?07/07/2014 11:39 ??NO HERPES SIMPLEX detected by Enzyme Linked Virus Inducible System ??Culture. Historical Provider LAB MICROBIOLOGY - GENERAL O RDERABLES Performing Organization Address City/State/ZIP Code Phon e Number HX [place] CONVERSION Lilli-Mon Virus PCR, Quant, Blood (07/05/2014 3:01 PM MST) [facility] Method Time Signature Lilli-Mon None None HX Virus PCR, detected detected [place] Quant, B NA CONVERSION Comment: ADDITIONAL INFORMATIO N Analyte Specific Reagent: This test was developed and its performance characteristics determined by [facility]. It has not been cleared or approved by the U.S. Food and Drug Admin istration. Test Performed by: [place] [address] [employer]: Pa A. Luna, M .D. pt going to x-ray ??07/05/2014 ??15:29 Specimen Anatomical Collection Method Collection Time Receive d Time (Source) Location / / Volume Laterality 07/05/2014 3:01 PM 5 3:01 MST PM MST Sol Cornelius APRN, D.N.P., DOREEN, M.S. LAB BL OOD ADD-ON Performing Organization Address City/State/ZIP Code Phon e Number HX [place] CONVERSION CMV DNA Detect / Quant, Plasma (07/05/2014 3:01 PM MST) Patholo gist Method Time Signature CMV DNA Undetected Undetected HX Detect/Quant, IU/mL [place] P NA CONVERSION Comment: Result in log IU/mL is Undetected. ADDITIONAL INFORMATIO N The quantification range of this assay i s 137 to 9,100,000 IU/mL (2.14 log to 6.96 log IU/mL) with a limit of detectio n at 91 IU/mL (1.96 log IU/mL). Testing was performed by the [employer]/FAN TaqMan CMV Test ([employer] pt going to x-ray ??07/05/2014 ??15:29 Specimen Anatomical Collection Method Collection Time Receive d Time (Source) Location / / Volume Laterality 07/05/2014 3:01 PM 5 3:01 MST PM MST Sol Cornelius APRN, D.N.P., DOREEN, M.S. LAB PR CROBIOLOGY - BLOOD ORDERABLES Performing Organization Address City/[facility]/ZIP Code Phon e Number HX [place] CONVERSION Cocci IgM and IgG (QL) (07/05/2014 3:01 PM MST) Analysis Performed At Patho logist Time Signature Coccidioides, Negative Negative HX IgG, EIA, S [place] A CONVERSION Comment: pt going to x-ray ??07/05/2014 ??15:29 pt going to x-ray ??07/05/2014 ??15:29 Specimen Type SERUM HX [place] NA CONVERSION Comment: pt going to x-ray ??07/05/2014 ??15:29 pt going to x-ray ??07/05/2014 ??15:29 Coccidioides, IgM, EIA, S Negative Negative HX F [place] CONVERSION Comment: pt going to x-ray ??07/05/2014 ??15:29 pt going to x-ray ??07/05/2014 ??15:29 Specimen Anatomical Collection Method Collection Time Receive d Time (Source) Location / / Volume Laterality 07/05/2014 3:01 PM 5 3:01 MST PM MST Louie Pollock APRNN.P., AGACNP-BC, M.S. 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 No evidence of abscess. Slightly promine nt left parotid duct without evidence of stones. Subcutaneous fat is unremarkable. No lucien nopathy. TECHNIQUE: Helical CT of the neck was ac quired in the axial plane without IV contrast. Coronal and sagittal reformatted images were generated. Electronically signed by: ?? Cam Adan M.D. 05-Jul-2014 13:29 Procedure Note Mango Adan M.D. - 02/14/2018Formatt ing of this note might be different from the original. 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 No evidence of abscess. Slightly promine nt left parotid duct without evidence of stones. Subcutaneous fat is unremarkable. No lucien nopathy. TECHNIQUE: Helical CT of the neck was ac quired in the axial plane without IV contrast. Coronal and sagittal reformatted images were generated. Electronically signed by: Cam Adan M.D. 05-Jul-2014 13:29 Yu Hernandez M.D. IMG CT PROCEDURES Bacteria / Marry Culture, Blood (07/05/2014 10:54 AM MST) Specimen Anatomical Collection Method Collection Time Receive d Time (Source) Location / / Volume Laterality 07/05/2014 10:54 07/05/2014 AM MST 10:54 AM MST Narrative HX [place] CONVERSION - 07/10/19 15 12:01 PM MST SOURCE: BLOOD, RIGHT AC ? COLLECTED: 07/05/2014 10:54 ? REC EIVED: 07/05/2014 11:15 CULTURE, BLOOD ? FINAL ?07/10/2014 12:01 ??No growth after 5 days of incubation. Historical Provider LAB MICROBIOLOGY - GENERAL O RDERABLES Performing Organization Address City/State/ZIP Code Phon e Number HX [place] CONVERSION Bacteria / Marry Culture, Blood (07/05/2014 10:49 AM MST) Specimen Anatomical Collection Method Collection Time Receive d Time (Source) Location / / Volume Laterality 07/05/2014 10:49 07/05/2014 AM MST 10:49 AM MST Narrative HX [place] CONVERSION - 07/10/19 15 12:01 PM MST SOURCE: BLOOD, LEFT AC ? COLLECTED: 07/05/2014 10:49 ? REC EIVED: 07/05/2014 11:16 CULTURE, BLOOD ? FINAL ?07/10/2014 12:01 ??No growth after 5 days of incubation. Historical Provider LAB MICROBIOLOGY - GENERAL O RDERABLES Performing Organization Address City/State/ZIP Code Phon e Number HX [place] CONVERSION Ehrlichia / Anaplasma PCR, Blood (07/05/2014 10:48 AM [facility]) Analysis Performed At [facility] Time Signature Ehrlichia Negative Negative HX ewingii/canis, [place] PCR A CONVERSION Comment: Test Performed by: [place] [address] [employer]: Bonny Frankel pt going to x-ray ??07/05/2014 ??15:29 Ehrlichia chaffeensis, PCR Negative Negative HX [place] CONVERSION Comment: Test Performed by: [facility] [place] [address] [employer]: Bonny Frankel pt going to x-ray ??07/05/2014 ??15:29 Anaplasma phagocytophilum, PCR Negative Negative HX [place] CONVERSION Comment: Test Performed by: [facility] [place] [address] [employer]: Bonny Frankel pt going to x-ray ??07/05/2014 ??15:29 Ehrlichia muris eauclairensis, Negative Negative HX [place] CONVERSION PCR Comment: ADDITIONAL INFORMATIO N Laboratory developed test. Test Performed by: [place] [address] [employer]: Bonny Frankel pt going to x-ray ??07/05/2014 ??15:29 Specimen Anatomical Collection Method Collection Time Receive d Time (Source) Location / / Volume Laterality 07/05/2014 10:48 07/05/2014 AM MST 10:48 AM MST Sol Cornelius APRN, D.N.P., [facility]IE-RADHA, M.S. LAB PR CROBIOLOGY - BLOOD ORDERABLES Performing Organization Address City/State/ZIP Code Phon e Number HX [place] CONVERSION Ehrlichia Ab Panel (07/05/2014 10:48 AM MST) [facility] Method Time Signature Anaplasma <1:64 -<1:64 HX phagocytophilum Ab, titer [place] IgG,S A CONVERSION Comment: ADDITIONAL INFORMATIO N Analyte Specific Reagent: This test was developed and its performance characteristics determined by [employer]. It has not been cleared or approved by the U.S. Food and Drug Admin istration. Test Performed by: [facility] [place] [address] [employer]: Bonny Frankel pt going to x-ray ??07/05/2014 ??15:29 Ehrlichia Chaffeensis ([facility]) <1:64 -<1:64 titer HX [place] CONVERSION Ab, IgG Comment: ADDITIONAL INFORMATIO N Analyte Specific Reagent: This test was developed and its performance characteristics determined by [employer]. It has not been cleared or approved by the U.S. Food and Drug Admin istration. Test Performed by: [place] [address] [employer]: Bonny Frankel pt going to x-ray ??07/05/2014 ??15:29 Specimen Anatomical Collection Method Collection Time Receive d Time (Source) Location / / Volume Laterality 07/05/2014 10:48 07/05/2014 AM MST 10:48 AM MST Sol Cornelius APRN, D.N.P., AGACNP-BC, M.S. LAB PR CROBIOLOGY - BLOOD ORDERABLES Performing Organization Address City/State/ZIP Code Phon e Number HX [place] CONVERSION (ABNORMAL) Manual Differential, B (07/05/2014 10:48 AM [facility]) [facility] Method Time Signature Unclassified Cells 0 HX [place] NA CONVERSION Plasma Cells 0 % HX [place] NA CONVERSION Neutrophilic Segs 0 (L) 42 - 75 % HX and Bands [place] NA CONVERSION Monocytes 51 (H) 4 - 12 % HX [place] NA CONVERSION Lymphocytes 44 18 - 52 % HX [place] NA CONVERSION Metamyelocytes 0 -<2.0 % HX [place] NA CONVERSION Basophils 0 0 - 4 % HX [place] NA CONVERSION Eosinophils 5 0 - 10 % HX [place] NA CONVERSION Nucleated RBC 0 /100 WBC HX [place] NA CONVERSION Blasts 0 -<1 % HX [place] NA CONVERSION Promyelocytes 0 -<1 % HX [place] NA CONVERSION Myelocytes 0 -<1.0 % HX [place] NA CONVERSION Manual Absolute 0.00 (C) x10(9)/L HX Neutrophil Count [place] NA CONVERSION Comment: ADDITIONAL INFORMATIO N The manual absolute neutrophil count is derived from a manual differential count and therefore is not exactly comparable to the automated absolute rui trophil count. Specimen Anatomical Collection Method Collection Time Receive d Time (Source) Location / / Volume Laterality 07/05/2014 10:48 07/05/2014 AM [facility] 10:48 AM [facility] Historical Provider LAB BLOOD ADD-ON Performing Organization Address City/State/ZIP Code Phon e Number HX [place] CONVERSION Pathologist Comment (07/05/2014 10:48 AM [facility]) [facility] Method Time Signature Technologist PB SeeComment HX Smear Review [place] NA CONVERSION Comment: 3-5-HPF Elliptocytes. Reported by hemato logy technologist. Specimen Anatomical Collection Method Collection Time Receive d Time (Source) Location / / Volume Laterality 07/05/2014 10:48 07/05/2014 AM MST 10:48 AM MST Historical Provider LAB PATHOLOGY/CYTOLOGY ORDER OSMEL Performing Organization Address City/State/ZIP Code Phon e Number HX [place] CONVERSION Nucleated RBC (07/05/2014 10:48 AM MST) P athologist Signature Nucleated RBC 0.0 /100 WBC HX [place] CONVERSION Comment: REVISED RESULTS PREVIOUSLY REPORTED A S DNR (Reported 07/05/2014 12:19 Result updated. Component results of this calcu lated test were edited) Specimen Anatomical Collection Method Collection Time Receive d Time (Source) Location / / Volume Laterality 07/05/2014 10:48 07/05/2014 AM MST 10:48 AM MST Historical Provider LAB BLOOD NON ADD-ON Performing Organization Address City/State/ZIP Code Phon e Number HX [place] CON[place] Lactate (07/05/2014 10:48 AM MST) P athologist Signature Lactate, P 1.40 0.60 - 2.30 HX mmol/L [place] CON[place] Specimen Anatomical Collection Method Collection Time Receive d Time (Source) Location / / Volume Laterality 07/05/2014 10:48 07/05/2014 AM MST 10:48 AM MST Yu Hernandez M.D. LAB BLOOD NON ADD-ON Performing Organization Address City/State/ZIP Code Phon e Number HX [place] CON[place] Lipase (07/05/2014 10:48 AM MST) P athologist Signature Lipase, S 14 7 - 60 U/L HX [place] CONVERSION Specimen Anatomical Collection Method Collection Time Receive d Time (Source) Location / / Volume Laterality 07/05/2014 10:48 07/05/2014 AM MST 10:48 AM MST Yu Hernandez M.D. LAB BLOOD ADD-ON Performing Organization Address City/State/ZIP Code Phon e Number HX [place] CON[place] Albumin (07/05/2014 10:48 AM MST) P athologist Signature Albumin, S 4.7 3.5 - 5.0 HX g/dL [place] CON[place] Specimen Anatomical Collection Method Collection Time Receive d Time (Source) Location / / Volume Laterality 07/05/2014 10:48 07/05/2014 AM MST 10:48 AM MST Yu Hernandez M.D. LAB BLOOD ADD-ON Performing Organization Address City/State/ZIP Code Phon e Number HX [place] Protein, Total (07/05/2014 10:48 AM MST) P athologist Signature Protein, 7.6 6.3 - 7.9 HX Total, S g/dL [place] CONVERSION Specimen Anatomical Collection Method Collection Time Receive d Time (Source) Location / / Volume Laterality 07/05/2014 10:48 07/05/2014 AM MST 10:48 AM MST Yu Hernandez M.D. LAB BLOOD ADD-ON Performing Organization Address [facility] Phon e Number HX [place] Bilirubin, Total (07/05/2014 10:48 AM MST) P athologist Signature Bilirubin, 0.6 -<=1.2 HX Total, S mg/dL [place] Specimen Anatomical Collection Method Collection Time Receive d Time (Source) Location / / Volume Laterality 07/05/2014 10:48 07/05/2014 AM MST 10:48 AM MST Yu Hernandez M.D. LAB BLOOD ADD-ON Performing Organization Address [facility] Phon e Number HX [place] Alkaline Phosphatase (07/05/2014 10:48 AM MST) P athologist Signature Alkaline 105 45 - 115 HX Phosphatase, S U/L [place] CON[place] Specimen Anatomical Collection Method Collection Time Receive d Time (Source) Location / / Volume Laterality 07/05/2014 10:48 07/05/2014 AM MST 10:48 AM MST Yu Hernandez M.D. LAB BLOOD ADD-ON Performing Organization Address City/State/ZIP Code Phon e Number HX [place] AST (Aspartate Aminotransferase) (07/05/2014 10:48 AM MST) Patholo gist Method Time Signature Aspartate 19 8 - 48 HX Aminotransferase U/L [place] (AST), S A CONVERSION Specimen Anatomical Collection Method Collection Time Receive d Time (Source) Location / / Volume Laterality 07/05/2014 10:48 07/05/2014 AM MST 10:48 AM MST Yu Hernandez M.D. LAB BLOOD ADD-ON Performing Organization Address City/State/ZIP Code Phon e Number HX [place] ALT (Alanine Aminotransferase) (07/05/2014 10:48 AM MST) Patholo gist Method Time Signature Alanine 18 7 - 55 HX Aminotransferase U/L [place] (ALT), S A CONVERSION Specimen Anatomical Collection Method Collection Time Receive d Time (Source) Location / / Volume Laterality 07/05/2014 10:48 07/05/2014 AM MST 10:48 AM MST Yu Hernandez M.D. LAB BLOOD ADD-ON Performing Organization Address [facility] Phon e Number HX [place] CON[place] (ABNORMAL) Glucose, Random (07/05/2014 10:48 AM MST) P athologist Signature Glucose, S 122 (H) 70 - 100 HX mg/dL [place] Specimen Anatomical Collection Method Collection Time Receive d Time (Source) Location / / Volume Laterality 07/05/2014 10:48 07/05/2014 AM MST 10:48 AM MST Yu Hernandez M.D. LAB BLOOD TROPONIN Performing Organization Address [facility] Code Phon e Number HX [place] CON[place] (ABNORMAL) Creatinine with Estimated GFR (07/05/2014 10:48 AM MST) P athologist Signature Creatinine 2.1 (H) 0.8 - 1.3 HX mg/dL [place] Specimen Anatomical Collection Method Collection Time Receive d Time (Source) Location / / Volume Laterality 07/05/2014 10:48 07/05/2014 AM MST 10:48 AM MST Yu Hernandez M.D. LAB BLOOD ADD-ON Performing Organization Address City/State/ZIP Code Phon e Number HX [place] CONVERSION (ABNORMAL) BUN (Blood Urea Nitrogen) (07/05/2014 10:48 AM MST) Analysis Performed At Patho logist Time Signature BUN (Blood 39.0 (H) 8.0 - 24.0 HX Urea mg/dL [place] Nitrogen), S A CONVERSION Specimen Anatomical Collection Method Collection Time Receive d Time (Source) Location / / Volume Laterality 07/05/2014 10:48 07/05/2014 AM MST 10:48 AM [facility] Yu Hernandez M.D. LAB BLOOD ADD-ON Performing Organization Address City/State/ZIP Code Phon e Number HX [place] CONVERSION (ABNORMAL) Electrolyte Panel (07/05/2014 10:48 AM [facility]) P athologist Signature Anion Gap 16 (H) 7 - 15 HX [place] Sodium, S 132 (L) 135 - 145 HX mmol/L [place] Potassium, S 4.1 3.6 - 5.2 HX mmol/L [place] Chloride, S 97 (L) 98 - 107 HX mmol/L [place] CON[place] HCO3, Venous 20 (L) 22 - 29 HX mmol/L [place] Specimen Anatomical Collection Method Collection Time Receive d Time (Source) Location / / Volume Laterality 07/05/2014 10:48 07/05/2014 AM [facility] 10:48 AM [facility] Yu Hernandez M.D. LAB BLOOD ADD-ON Performing Organization Address City/State/ZIP Code Phon e Number HX [place] CONVERSION (ABNORMAL) CBC with Differential, Blood (07/05/2014 10:48 AM [facility]) Patholo gist Method Time Signature MCV 88.5 80.8 - HX 96.6 fL [place] A CONVERSION Platelet Count 191 151 - 355 HX x10(9)/L [place] A CONVERSION Leukocytes 1.2 (L) 4.2 - HX 10.2 [place] x10(9)/L A CONVERSION Hemoglobin 10.6 (L) 13.5 - HX 17.5 g/dL [place] A CONVERSION Erythrocytes 3.48 (L) 4.21 - HX 5.61 [place] x10(12)/L A CONVERSION Hematocrit 30.8 (L) 38.8 - HX 50.0 % [place] A CONVERSION RBC Distrib 12.4 11.8 - HX Width 15.6 % [place] A CONVERSION Specimen Anatomical Collection Method Collection Time Receive d Time (Source) Location / / Volume Laterality 07/05/2014 10:48 07/05/2014 AM MST 10:48 AM MST Yu Hernandez M.D. LAB BLOOD ADD-ON Performing Organization Address City/State/ZIP Code Phon e Number HX [place] CON[place] ECG 12 Lead with rhythm strip (07/05/2014 12:00 AM MST) Specimen (Source) Anatomical Location Collection Method / Collectio n Time Received Time / Laterality Volume 07/05/2014 Historical Provider ECG ORDERABLES Performing Organization Address City/[facility] Code Phon e Number HX [place] CON[place] documented in this encounter Visit Diagnoses Not on filedocumented in this encounter Additional Health Concerns Assessment Noted Time PHQ-9 Depression Total Score: 4 03/02/2014 10:29 AM CD T documented as of this encounter
--- OUTSIDE RECORDS SUMMARY | 2022-04-13 12:40 | XMS_ITS | Encounter Summary ---
:1955 Author Organization [facility] Address [address] [place] [address] Care Team Providers Name Role Phone Unavailable Primary Care Provider Unavailable Encounter Details Date Type Department Care Team Description 07/05/2013 Hospital Encounter HX NO MAPPING Roshan Grace M.S .N., R.N., C.C.T.C. 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 [address] [place] [phone] 04/25/2022 Office Visit Otorhinolaryngology Dex Matta APRN, C.N.P., M.S.N. [address] [place] [phone] 05/08/2022 Appointment Laboratory Medicine Angélica Granger P.A.-CDemetrius [address] [place] [phone] 05/08/2022 Clinical Admitting/Central Communication Scheduling 05/10/2022 Appointment Radiology Jeremie Rose M.D. [address] [place] [phone] 05/10/2022 Comprehensive Visit Orthopedic Surgery Warner Graves M.D. [address] [place] [phone] 05/22/2022 Appointment Laboratory Medicine Angélica Granger P.A.-C. [address] [place] [phone] 06/05/2022 Appointment Laboratory Medicine Angélica Granger P.A.-C. [address] [place] [phone] 06/19/2022 Appointment Laboratory Medicine Angélica Granger P.A.-C. [address] [place] [phone] 07/03/2022 Appointment Laboratory Medicine Angélica Granger P.A.-C. [address] [place] [phone] 07/17/2022 Appointment Laboratory Medicine Angélica Granger P.A.-C. [address] [place] [phone] 07/31/2022 Appointment Laboratory Medicine Angélica Granger P.A.-C. [address] [place] [phone] 08/14/2022 Appointment Laboratory nAgélica Royal P.A.-C. [address] [place] [phone] 08/28/2022 Appointment Laboratory Angélica Royal P.A.-C. 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
--- OUTSIDE RECORDS SUMMARY | 2022-04-13 12:40 | XMS_ITS | Encounter Summary ---
:1955 Author Organization [facility] Address [address] [place] [address] Care Team Providers Name Role Phone Unavailable Primary Care Provider Unavailable Encounter Details Date Type Department Care Team Description 06/01/2014 Hospital Encounter HX RST TXS LIVER Michele Granger, P.A.-C. 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 [address] [place] [phone] 04/25/2022 Office Visit Otorhinolaryngology Dex Matta, RAMONA, C.N.P., M.S.N. [address] [place] [phone] 05/08/2022 Appointment Laboratory Medicine Angélica Granger P.A.-CDemetrius [address] [place] [phone] 05/08/2022 Clinical Admitting/Central Communication Scheduling 05/10/2022 Appointment Radiology Jeremie Rose M.D. [address] [place] [phone] 05/10/2022 Comprehensive Visit Orthopedic Surgery Warner Graves M.D. [address] [place] [phone] 05/22/2022 Appointment Laboratory Medicine Angélica Granger P.A.-C. [address] [place] [phone] 06/05/2022 Appointment Laboratory Medicine Angélica Granger P.A.-C. [address] [place] [phone] 06/19/2022 Appointment Laboratory Medicine Angélica Granger P.A.-C. [address] [place] [phone] 07/03/2022 Appointment Laboratory Medicine Angélica Granger P.A.-C. [address] [place] [phone] 07/17/2022 Appointment Laboratory Medicine Angélica Granger P.A.-C. [address] [place] [phone] 07/31/2022 Appointment Laboratory Medicine Angélica Granger P.A.-C. [address] [place] [phone] 08/14/2022 Appointment Laboratory Medicine Angélica Granger P.A.-C. [address] [place] [phone] 08/28/2022 Appointment Laboratory Medicine Angélica Granger P.A.-C. [address] [place] [phone] documented as of this encounter Visit Diagnoses Not on filedocumented in this encounter Additional Health Concerns Assessment Noted Time PHQ-9 Depression Total Score: 4 03/02/2014 10:29 AM CD T documented as of this encounter
--- OUTSIDE RECORDS SUMMARY | 2022-04-13 12:40 | XMS_ITS | Encounter Summary ---
:1955 Author Organization [facility] Address [address] [place] [address] Care Team Providers Name Role Phone Unavailable Primary Care Provider Unavailable Encounter Details Date Type Department Care Team Description 06/28/2013 - Hospital Encounter HX RST GENEROSE 3 Tres Rogers, 07/02/2013 EAST D.ODemetrius [address] [place] [phone] (Wo rk) Social History Tobacco Use Types [...] at Date Recorded Male 05/16/2020 4:27 PM AUTOMOTIVE GENERAL MANAGER documented as of this encounter Last Filed Vital Signs Vital Sign Reading Time Taken Comments Blood Pressure 144/85 07/02/2013 8:47 AM AUTOMOTIVE GENERAL MANAGER Pulse 71 07/02/2013 8:47 AM AUTOMOTIVE GENERAL MANAGER Temperature - - Respiratory Rate 18 07/02/2013 8:47 AM AUTOMOTIVE GENERAL MANAGER Oxygen Saturation - - Inhaled Oxygen Concentration - - Weight 72.2 kg (159 lb 2.8 oz) 07/01/2013 4:58 AM AUTOMOTIVE GENERAL MANAGER Height - - Body Mass Index 22.79 06/28/2013 2:11 AM AUTOMOTIVE GENERAL MANAGER documented in this encounter Medications at Time [...] Laboratory Medicine Angélica Granger P.A.-C. [address] [place] [phone] 04/25/2022 Office Visit Otorhinolaryngology Dex Matta APRN, C.N.P., M.S.N. [address] [place] [phone] 05/08/2022 Appointment Laboratory Medicine Angélica Granger P.A.-C. [address] [place] [address] [phone] 05/08/2022 Clinical Admitting/Central Communication Scheduling 05/10/2022 Appointment Radiology Jeremie Rose M.D. [address] [place] [phone] 05/10/2022 Comprehensive Visit Orthopedic Surgery Warner Graves M.D. [address] [place] [phone] 05/22/2022 Appointment Laboratory Medicine Angélica Granger P.A.-C. [address] [place] [phone] 06/05/2022 Appointment Laboratory Medicine Angélica Granger P.A.-C. [address] [place] [phone] 06/19/2022 Appointment Laboratory Medicine Angélica Granger P.A.-C. [address] [place] [phone] 07/03/2022 Appointment Laboratory Medicine Angélica Granger P.A.-C. [address] [place] [phone] 07/17/2022 Appointment Laboratory Medicine Angélica Granger P.A.-C. [address] [place] [phone] 07/31/2022 Appointment Laboratory Medicine Angélica Granger P.A.-C. [address] [place] [phone] 08/14/2022 Appointment Laboratory Medicine Angélica Granger P.A.-C. [address] [place] [phone] 08/28/2022 Appointment Laboratory Medicine Emiliejeri Angélica Edmundo Stern [address] [place] [phone] documented as of this encounter Procedures Procedure Name Priority Date/Time Associated Comments Diagnosis LIPID PANEL, S Routine 07/04/2013 6:58 Results fo r this AM AUTOMOTIVE GENERAL MANAGER procedure are i n the results section. HLA CLASS II SAB Routine 07/04/2013 6:58 Results for this ANTIBODY SCREEN AM AUTOMOTIVE GENERAL MANAGER procedure ar e in the results section. HLA CLASS I SAB ANTIBODY Routine 07/04/2013 6:58 Results for this SCREEN AM AUTOMOTIVE GENERAL MANAGER procedure are i n the results section. TACROLIMUS LEVEL, B Routine 07/04/2013 6:58 Resul ts for this AM AUTOMOTIVE GENERAL MANAGER procedure are i n the results section. ACTIVATED PARTIAL Routine 07/04/2013 6:58 Results for this THROMBOPLASTIN TIME AM AUTOMOTIVE GENERAL MANAGER procedur e are in (APTT), P the results section. PROTHROMBIN TIME (PT), P Routine 07/04/2013 6:58 Results for this AM AUTOMOTIVE GENERAL MANAGER procedure are i n the results section. CBC WITH DIFFERENTIAL, B Routine 07/04/2013 6:58 Results for this AM AUTOMOTIVE GENERAL MANAGER procedure are i n the results section. BUN (BLOOD UREA Routine 07/04/2013 6:58 Results f or this NITROGEN), S/P AM AUTOMOTIVE GENERAL MANAGER procedure are in the results section. ALANINE AMINOTRANSFERASE Routine 07/04/2013 6:58 Results for this (ALT), S/P AM AUTOMOTIVE GENERAL MANAGER procedure are i n the results section. ASPARTATE Routine 07/04/2013 6:58 Results for this AMINOTRANSFERASE (AST), AM AUTOMOTIVE GENERAL MANAGER proc edure are in S/P the results section. SODIUM, S/P Routine 07/04/2013 6:58 Results for this AM AUTOMOTIVE GENERAL MANAGER procedure are i n the results section. PROTEIN, TOTAL, S/P Routine 07/04/2013 6:58 Resul ts for this AM AUTOMOTIVE GENERAL MANAGER procedure are i n the results section. POTASSIUM, S/P Routine 07/04/2013 6:58 Results fo r this AM AUTOMOTIVE GENERAL MANAGER procedure are i n the results section. PHOSPHORUS (INORGANIC), Routine 07/04/2013 6:58 R esults for this S AM AUTOMOTIVE GENERAL MANAGER procedure are i n the results section. ALKALINE PHOSPHATASE, Routine 07/04/2013 6:58 Res ults for this S/P AM AUTOMOTIVE GENERAL MANAGER procedure are i n the results section. GLUCOSE, FASTING, S/P Routine 07/04/2013 6:58 Res ults for this AM AUTOMOTIVE GENERAL MANAGER procedure are i n the results section. CREATININE WITH EGFR, Routine 07/04/2013 6:58 Res ults for this S/P AM AUTOMOTIVE GENERAL MANAGER procedure are i n the results section. CHLORIDE, S/P Routine 07/04/2013 6:58 Results for this AM AUTOMOTIVE GENERAL MANAGER procedure are i n the results section. BICARBONATE, B/S/P Routine 07/04/2013 6:58 Result s for this AM AUTOMOTIVE GENERAL MANAGER procedure are i n the results section. BILIRUBIN DIRECT, S/P Routine 07/04/2013 6:58 Res ults for this AM AUTOMOTIVE GENERAL MANAGER procedure are i n the results section. BILIRUBIN, TOT, S/P Routine 07/04/2013 6:58 Resul ts for this AM AUTOMOTIVE GENERAL MANAGER procedure are i n the results section. ALBUMIN, S/P Routine 07/04/2013 6:58 Results for this AM AUTOMOTIVE GENERAL MANAGER procedure are i n the results section. GLUCOSE POCT, B Routine 07/02/2013 11:40 Results for this AM AUTOMOTIVE GENERAL MANAGER procedure are i n the results section. GLUCOSE POCT, B Routine 07/02/2013 6:44 Results f or this AM AUTOMOTIVE GENERAL MANAGER procedure are i n the results section. ELECTROLYTE (CHEM 4) Routine 07/02/2013 6:09 Resu lts for this PANEL, S/P AM AUTOMOTIVE GENERAL MANAGER procedure are i n the results section. TACROLIMUS LEVEL, B Routine 07/02/2013 6:09 Resul ts for this AM AUTOMOTIVE GENERAL MANAGER procedure are i n the results section. CBC WITH DIFFERENTIAL, B Routine 07/02/2013 6:09 Results for this AM AUTOMOTIVE GENERAL MANAGER procedure are i n the results section. ALANINE AMINOTRANSFERASE Routine 07/02/2013 6:09 Results for this (ALT), S/P AM AUTOMOTIVE GENERAL MANAGER procedure are i n the results section. ASPARTATE Routine 07/02/2013 6:09 Results for this AMINOTRANSFERASE (AST), AM AUTOMOTIVE GENERAL MANAGER proc edure are in S/P the results section. ALKALINE PHOSPHATASE, Routine 07/02/2013 6:09 Res ults for this S/P AM AUTOMOTIVE GENERAL MANAGER procedure are i n the results section. BILIRUBIN, TOT, S/P Routine 07/02/2013 6:09 Resul ts for this AM AUTOMOTIVE GENERAL MANAGER procedure are i n the results section. GLUCOSE POCT, B Routine 07/01/2013 9:15 Results f or this PM AUTOMOTIVE GENERAL MANAGER procedure are i n the results section. GLUCOSE POCT, B Routine 07/01/2013 5:16 Results f or this PM AUTOMOTIVE GENERAL MANAGER procedure are i n the results section. GLUCOSE POCT, B Routine 07/01/2013 11:27 Results for this AM AUTOMOTIVE GENERAL MANAGER procedure are i n the results section. GLUCOSE POCT, B Routine 07/01/2013 6:30 Results f or this AM AUTOMOTIVE GENERAL MANAGER procedure are i n the results section. GLUCOSE POCT, B Routine 06/30/2013 8:54 Results f or this PM AUTOMOTIVE GENERAL MANAGER procedure are i n the results section. GLUCOSE POCT, B Routine 06/30/2013 4:31 Results f or this PM AUTOMOTIVE GENERAL MANAGER procedure are i n the results section. GLUCOSE POCT, B Routine 06/30/2013 3:27 Results f or this PM AUTOMOTIVE GENERAL MANAGER procedure are i n the results section. ELECTROLYTE (CHEM 4) Routine 06/30/2013 6:13 Resu lts for this PANEL, S/P AM AUTOMOTIVE GENERAL MANAGER procedure are i n the results section. TACROLIMUS LEVEL, B Routine 06/30/2013 6:13 Resul ts for this AM AUTOMOTIVE GENERAL MANAGER procedure are i n the results section. CBC WITH DIFFERENTIAL, B Routine 06/30/2013 6:13 Results for this AM AUTOMOTIVE GENERAL MANAGER procedure are i n the results section. ALANINE AMINOTRANSFERASE Routine 06/30/2013 6:13 Results for this (ALT), S/P AM AUTOMOTIVE GENERAL MANAGER procedure are i n the results section. ASPARTATE Routine 06/30/2013 6:13 Results for this AMINOTRANSFERASE (AST), AM AUTOMOTIVE GENERAL MANAGER proc edure are in S/P the results section. GLUCOSE POCT, B Routine 06/30/2013 6:09 Results f or this AM AUTOMOTIVE GENERAL MANAGER procedure are i n the results section. GLUCOSE POCT, B Routine 06/29/2013 9:46 Results f or this PM AUTOMOTIVE GENERAL MANAGER procedure are i n the results section. GLUCOSE POCT, B Routine 06/29/2013 4:27 Results f or this PM AUTOMOTIVE GENERAL MANAGER procedure are i n the results section. GLUCOSE POCT, B Routine 06/29/2013 11:41 Results for this AM AUTOMOTIVE GENERAL MANAGER procedure are i n the results section. GLUCOSE POCT, B Routine 06/29/2013 11:21 Results for this AM AUTOMOTIVE GENERAL MANAGER procedure are i n the results section. GLUCOSE POCT, B Routine 06/29/2013 10:54 Results for this AM AUTOMOTIVE GENERAL MANAGER procedure are i n the results section. GLUCOSE POCT, B Routine 06/29/2013 10:30 Results for this AM AUTOMOTIVE GENERAL MANAGER procedure are i n the results section. GLUCOSE POCT, B Routine 06/29/2013 6:48 Results f or this AM AUTOMOTIVE GENERAL MANAGER procedure are i n the results section. GLUCOSE POCT, B Routine 06/28/2013 9:54 Results f or this PM AUTOMOTIVE GENERAL MANAGER procedure are i n the results section. GLUCOSE POCT, B Routine 06/28/2013 6:24 Results f or this PM AUTOMOTIVE GENERAL MANAGER procedure are i n the results section. documented in this encounter Results (ABNORMAL) Protein, Total (07/04/2013 6:58 AM AUTOMOTIVE GENERAL MANAGER) Patholo gist Method Time Signature Total Protein, 6.0 (L) 6.3 - 7.9 [facility] S G/DL LABORATORIES - [facility] Specimen Anatomical Collection Method Collection Time Receive d Time (Source) Location / / Volume Laterality 07/04/2013 6:58 AM 4 6:58 AUTOMOTIVE GENERAL MANAGER AM AUTOMOTIVE GENERAL MANAGER Vanessa Parra APRN, C.N.P. LAB BLOOD ADD-ON Performing Organization Address City/[facility]/ZIP Code Phon e Number [facility] LABORATORIES - [address] [place] [address] [facility] Phosphorus Inorganic (07/04/2013 6:58 AM AUTOMOTIVE GENERAL MANAGER) Analysis Performed At [facility] logist Time Signature Phosphorus 3.9 2.5 - 4.5 [facility] (Inorganic), S MG/DL LABORATORIES - [facility] Specimen Anatomical Collection Method Collection Time Receive d Time (Source) Location / / Volume Laterality 07/04/2013 6:58 AM 4 6:58 AUTOMOTIVE GENERAL MANAGER AM AUTOMOTIVE GENERAL MANAGER Vanessa Parra APRN, C.N.P. LAB BLOOD ADD-ON Performing Organization Address City/[facility]/ZIP Code Phon e Number [facility] LABORATORIES - [address] [place] [address] [facility] (ABNORMAL) Creatinine with Estimated GFR (MDRD) (07/04/2013 6:58 AM AUTOMOTIVE GENERAL MANAGER) [facility] gist Method Time Signature Creatinine 1.5 (H) 0.8 - 1.3 [facility] MG/DL [facility] - [facility] eGFR 48 (L) >60 [facility] Non-Black/Afric ML/MIN/BS LABORATORIES - an Ecuadorean A [facility] eGFR-Black/Afri 58 (L) >60 [facility] can [place] ML/MIN/BS LABORATORIES - A [facility] Specimen Anatomical Collection Method Collection Time Receive d Time (Source) Location / / Volume Laterality 07/04/2013 6:58 AM 4 6:58 AUTOMOTIVE GENERAL MANAGER AM AUTOMOTIVE GENERAL MANAGER Vanessa Parra APRN CDemetriusNDemetriusPDemetrius LAB BLOOD ADD-ON Performing Organization Address City/State/ZIP Code Phon e Number [facility] LABORATORIES - [address] [place], [place] [address] [facility] HLA Class I SAB Antibody Screen (07/04/2013 6:58 AM AUTOMOTIVE GENERAL MANAGER) [facility] gist Method Time Signature SAB A . [facility] Specificity LABORATORIES - [facility] Comment: 29[388], 68[339] ? Format: Serologic equivalent/abbreviated specificity ? [Normalized Value] shown in decreasing o rder. Note: A ? serologic equivalent/abbreviated specifi city displayed ? multiple times could indicate different alleles. ? SAB B Specificity . [facility] Comment: 57[4656], 57[4172], 58[3230], 75[376], 6 7[327] ? Format: Serologic equivalent/abbreviated specificity ? [Normalized Value] shown in decreasing o rder. Note: A ? serologic equivalent/abbreviated specifi city displayed ? multiple times could indicate different alleles. ? Class I SAB Overall Positive Not Applicable [facility] LABORATORIES - Result [facility] S Class I SAB cPRA 19 [facility] L ABORATORIES - [facility] S Comment: This PRA is a [facility] Tiss ue Typing ? Laboratory calculated PRA. PRA is based on the antigen ? frequency of the Tissue Typing patient a nd donor ? population. ??PRA reflects all antibodie s with a normalized ? value (MFI) above 300. ? SAB C Specificity NONE [facility] Comment: Method: Luminex Flow Cytometry Specimen Anatomical Collection Method Collection Time Receive d Time (Source) Location / / Volume Laterality 07/04/2013 6:58 AM 4 6:58 AUTOMOTIVE GENERAL MANAGER AM AUTOMOTIVE GENERAL MANAGER Vanessa Parra APRN, C.N.P. LAB HLA ORDERABLES Performing Organization Address City/[facility] Phon e Number [facility] LABORATORIES - [address] [place] [address] [facility] (ABNORMAL) BUN (Blood Urea Nitrogen) (07/04/2013 6:58 AM AUTOMOTIVE GENERAL MANAGER) Analysis Performed At Patho logist Time Signature BUN (Blood 36 (H) 8 - 24 [facility] Urea MG/DL LABORATORIES - Nitrogen), S [facility] Specimen Anatomical Collection Method Collection Time Receive d Time (Source) Location / / Volume Laterality 07/04/2013 6:58 AM 4 6:58 AUTOMOTIVE GENERAL MANAGER AM AUTOMOTIVE GENERAL MANAGER Vanessa Parra APRN, C.N.P. LAB BLOOD ADD-ON Performing Organization Address City/[facility]/ZIP Code Phon e Number [facility] LABORATORIES - [address] [place] [address] [facility] (ABNORMAL) Alkaline Phosphatase (07/04/2013 6:58 AM AUTOMOTIVE GENERAL MANAGER) Patholo gist Method Time Signature Alkaline 134 (H) 45 - 115 [facility] Phosphatase, S U/L LABORATORIES - [facility] Specimen Anatomical Collection Method Collection Time Receive d Time (Source) Location / / Volume Laterality 07/04/2013 6:58 AM 4 6:58 AUTOMOTIVE GENERAL MANAGER AM AUTOMOTIVE GENERAL MANAGER Vanessa Parra APRN, C.N.P. LAB BLOOD ADD-ON Performing Organization Address City/[facility] Code Phon e Number [facility] LABORATORIES - [address] [place] [address] [facility] (ABNORMAL) Glucose, Fasting (07/04/2013 6:58 AM AUTOMOTIVE GENERAL MANAGER) P athologist Signature Last Intake 7 HR [facility] [place] Glucose, P 104 (H) 70 - 100 [facility] MG/DL [facility] Specimen Anatomical Collection Method Collection Time Receive d Time (Source) Location / / Volume Laterality 07/04/2013 6:58 AM 4 6:58 AUTOMOTIVE GENERAL MANAGER AM AUTOMOTIVE GENERAL MANAGER Vanessa Parra APRN, C.N.P. LAB BLOOD NON ADD-ON Performing Organization Address City/State/ZIP Code Phon e Number [facility] - [address] [place] [address] [facility] Potassium (07/04/2013 6:58 AM AUTOMOTIVE GENERAL MANAGER) P athologist Signature Potassium, S 5.0 3.6 - 5.2 [facility] MMOL/L [facility] Specimen Anatomical Collection Method Collection Time Receive d Time (Source) Location / / Volume Laterality 07/04/2013 6:58 AM 4 6:58 AUTOMOTIVE GENERAL MANAGER AM AUTOMOTIVE GENERAL MANAGER Vanessa Parra APRN, C.N.P. LAB BLOOD ADD-ON Performing Organization Address City/State/ZIP Code Phon e Number [facility] - [address] [place] [address] [facility] AST (Aspartate Aminotransferase) (07/04/2013 6:58 AM AUTOMOTIVE GENERAL MANAGER) P athologist Signature AST, Total, S 16 8 - 48 U/L [facility] [place] Specimen Anatomical Collection Method Collection Time Receive d Time (Source) Location / / Volume Laterality 07/04/2013 6:58 AM 4 6:58 AUTOMOTIVE GENERAL MANAGER AM AUTOMOTIVE GENERAL MANAGER Vanessa Parra APRN, C.N.P. LAB BLOOD ADD-ON Performing Organization Address City/[facility]/ZIP Code Phon e Number [facility] - [address] [place] [address] [facility] (ABNORMAL) Bilirubin, Total (07/04/2013 6:58 AM AUTOMOTIVE GENERAL MANAGER) Patholo gist Method Time Signature Bilirubin, 1.6 (H) 0.1 - 1.0 [facility] Total, S MG/DL [facility] Specimen Anatomical Collection Method Collection Time Receive d Time (Source) Location / / Volume Laterality 07/04/2013 6:58 AM 4 6:58 AUTOMOTIVE GENERAL MANAGER AM AUTOMOTIVE GENERAL MANAGER Arley [place] APRN.N.P. LAB BLOOD ADD-ON Performing Organization Address City/State/ZIP Code Phon e Number [facility] - [address] [place] [address] [facility] APTT (Activated Partial Thromboplastin Time) (07/04/2013 6:58 AM AUTOMOTIVE GENERAL MANAGER) P athologist Signature APTT, P 28 28 - 38 SEC [facility] [place] Specimen Anatomical Collection Method Collection Time Receive d Time (Source) Location / / Volume Laterality 07/04/2013 6:58 AM 4 6:58 AUTOMOTIVE GENERAL MANAGER AM AUTOMOTIVE GENERAL MANAGER Arley [place] APRN.N.P. LAB BLOOD ADD-ON Performing Organization Address City/[facility]/ZIP Code Phon e Number [facility] [address] [place] [address] [facility] (ABNORMAL) Bilirubin, Direct (07/04/2013 6:58 AM AUTOMOTIVE GENERAL MANAGER) Patholo gist Method Time Signature Bilirubin, 1.0 (H) 0.0 - 0.3 [facility] Direct, S MG/DL [facility] Specimen Anatomical Collection Method Collection Time Receive d Time (Source) Location / / Volume Laterality 07/04/2013 6:58 AM 4 6:58 AUTOMOTIVE GENERAL MANAGER AM AUTOMOTIVE GENERAL MANAGER Vanessa Parra APRN, Arley.N.P. LAB BLOOD ADD-ON Performing Organization Address City/[facility]/ZIP Code Phon e Number [facility] - [address] [place] [address] [facility] Sodium (07/04/2013 6:58 AM AUTOMOTIVE GENERAL MANAGER) P athologist Signature Sodium, S 138 135 - 145 [facility] MMOL/L [facility] Specimen Anatomical Collection Method Collection Time Receive d Time (Source) Location / / Volume Laterality 07/04/2013 6:58 AM 4 6:58 AUTOMOTIVE GENERAL MANAGER AM AUTOMOTIVE GENERAL MANAGER Vanessa Parra APRN, C.N.P. LAB BLOOD ADD-ON Performing Organization Address City/[facility]/ZIP Code Phon e Number [facility] - [address] [place], [place] [address] [facility] HLA Class II SAB Antibody Screen (07/04/2013 6:58 AM AUTOMOTIVE GENERAL MANAGER) [facility] gist Method Time Signature Class II SAB Positive Not Applicable [facility] Overall LABORATORIES - Result [facility] Class II SAB 21 [facility] cPRA LABORATORIES - [facility] Comment: This PRA is a [facility] Tiss ue Typing ? Laboratory calculated PRA. PRA is based on the antigen ? frequency of the Tissue Typing patient a nd donor ? population. ??PRA reflects all antibodie s with a normalized ? value (MFI) above 300. ? SAB DQB1 Specificity NONE [facility] SAB DPB1 Specificity . [facility] Comment: 4[358], 3[320] ? Format: Serologic equivalent/abbreviated specificity ? [Normalized Value] shown in decreasing o rder. Note: A ? serologic equivalent/abbreviated specifi city displayed ? multiple times could indicate different alleles. ? Method: Luminex Flow Cytometry ? SAB DRB1 Specificity . [facility] Comment: 4[376] ? Format: Serologic equivalent/abbreviated specificity ? [Normalized Value] shown in decreasing o rder. Note: A ? serologic equivalent/abbreviated specifi city displayed ? multiple times could indicate different alleles. ? SAB [id number] Specificity NONE [facility] INIC LABORATORIES - [facility] Specimen Anatomical Collection Method Collection Time Receive d Time (Source) Location / / Volume Laterality 07/04/2013 6:58 AM 4 6:58 AUTOMOTIVE GENERAL MANAGER AM AUTOMOTIVE GENERAL MANAGER Vanessa Parra APRN C.NDemetriusPDemetrius LAB HLA ORDERABLES Performing Organization Address City/State/ZIP Code Phon e Number [facility] LABORATORIES - [address] [place], [place] [address] [facility] (ABNORMAL) CBC with Differential (07/04/2013 6:58 AM AUTOMOTIVE GENERAL MANAGER) [facility] gist Method Time Signature Erythrocytes 3.05 (L) 4.32 - [facility] 5.72 LABORATORIES - X10(12)/L [facility] MCV 96.1 (H) 81.2 - [facility] 95.1 FL [facility] RBC Distrib 18.9 (H) 11.8 - [facility] Width 15.6 % [facility] Platelet Count 190 150 - 450 [facility] X10(9)/L [facility] Lymphocytes 1.31 0.90 - [facility] 2.90 LABORATORIES - X10(9)/L [facility] Monocytes 0.69 0.30 - [facility] 0.90 LABORATORIES - X10(9)/L [facility] Hemoglobin 9.5 (L) 13.5 - [facility] 17.5 G/DL [facility] Hematocrit 29.3 (L) 38.8 - [facility] 50.0 % [facility] Leukocytes 4.8 3.5 - [facility] 10.5 LABORATORIES - X10(9)/L [facility] Neutrophils 2.63 1.70 - [facility] 7.00 LABORATORIES - X10(9)/L [facility] Eosinophils 0.12 0.05 - [facility] 0.50 LABORATORIES - X10(9)/L [facility] Basophils 0.02 0.00 - [facility] 0.30 LABORATORIES - X10(9)/L [facility] Specimen Anatomical Collection Method Collection Time Receive d Time (Source) Location / / Volume Laterality 07/04/2013 6:58 AM 4 6:58 AUTOMOTIVE GENERAL MANAGER AM AUTOMOTIVE GENERAL MANAGER Vanessa Parra APRN, C.N.P. LAB BLOOD ADD-ON Performing Organization Address City/[facility]/ZIP Code Phon e Number [facility] LABORATORIES - [address] [place], [place] [address] [facility] PT (Prothrombin Time) with INR (07/04/2013 6:58 AM AUTOMOTIVE GENERAL MANAGER) [facility] gist Method Time Signature Prothrombin 11.2 9.5 - 13.8 [facility] Time, P SEC LABORATORIES - [facility] INR 0.9 0.8 - 1.2 [facility] LABORATORIES - [facility] Specimen Anatomical Collection Method Collection Time Receive d Time (Source) Location / / Volume Laterality 07/04/2013 6:58 AM 4 6:58 AUTOMOTIVE GENERAL MANAGER AM AUTOMOTIVE GENERAL MANAGER Vanessa Parra APRN, C.N.P. LAB BLOOD ADD-ON Performing Organization Address City/State/ZIP Code Phon e Number [facility] LABORATORIES - [address] [facility] Bicarbonate (07/04/2013 6:58 AM AUTOMOTIVE GENERAL MANAGER) P athologist Signature HX 26 22 - 29 [facility] Bicarbonate, MMOL/L LABORATORIES - P/S [facility] Specimen Anatomical Collection Method Collection Time Receive d Time (Source) Location / / Volume Laterality 07/04/2013 6:58 AM 4 6:58 AUTOMOTIVE GENERAL MANAGER AM AUTOMOTIVE GENERAL MANAGER Vanessa Parra APRN, C.N.P. LAB BLOOD ADD-ON Performing Organization Address City/State/ZIP Code Phon e Number [facility] - [address] [facility] ALT (Alanine Aminotransferase) (07/04/2013 6:58 AM AUTOMOTIVE GENERAL MANAGER) [facility] gist Method Time Signature Alanine 24 7 - 55 [facility] Aminotransferase U/L LABORATORIES - (ALT), S [facility] Specimen Anatomical Collection Method Collection Time Receive d Time (Source) Location / / Volume Laterality 07/04/2013 6:58 AM 4 6:58 AUTOMOTIVE GENERAL MANAGER AM AUTOMOTIVE GENERAL MANAGER Arley Canada APRN.N.P. LAB BLOOD ADD-ON Performing Organization Address City/[facility]/ZIP Code Phon e Number [facility]IES - [address] [facility] Chloride (07/04/2013 6:58 AM AUTOMOTIVE GENERAL MANAGER) P athologist Signature Chloride, S 102 100 - 108 [facility] MMOL/L LABORATORIES - [facility] Specimen Anatomical Collection Method Collection Time Receive d Time (Source) Location / / Volume Laterality 07/04/2013 6:58 AM 4 6:58 AUTOMOTIVE GENERAL MANAGER AM AUTOMOTIVE GENERAL MANAGER Arley Canada APRN.N.PDemetrius LAB BLOOD ADD-ON Performing Organization Address City/[facility] Code Phon e Number [facility] - [address] [facility] Albumin (07/04/2013 6:58 AM AUTOMOTIVE GENERAL MANAGER) P athologist Signature Albumin, S 3.6 3.5 - 5.0 [facility] G/DL LABORATORIES - [facility] Specimen Anatomical Collection Method Collection Time Receive d Time (Source) Location / / Volume Laterality 07/04/2013 6:58 AM 4 6:58 AUTOMOTIVE GENERAL MANAGER AM AUTOMOTIVE GENERAL MANAGER Vanessa Parra APRN C.N.P. LAB BLOOD ADD-ON Performing Organization Address City/[facility] Phon e Number [facility] - [address] [facility] (ABNORMAL) Tacrolimus Level (07/04/2013 6:58 AM AUTOMOTIVE GENERAL MANAGER) Patholo gist Method Time Signature Tacrolimus, B 4.4 (L) 5.0-15.0 [facility] (Trough) LABORATORIES - NG/ML [facility] Tacrolimus . [facility] Blood Date of LABORATORIES - Last Dose [facility] Comment: Not Specified Tacrolimus Time of Last Dose . [facility] LABORATORIES [facility] Comment: Not Specified Tacrolimus Blood Dose, mg . MG [facility] LABORATORIES [facility] Comment: Not Specified Specimen Anatomical Collection Method Collection Time Receive d Time (Source) Location / / Volume Laterality 07/04/2013 6:58 AM 4 6:58 AUTOMOTIVE GENERAL MANAGER AM AUTOMOTIVE GENERAL MANAGER Vanessa Parra APRN, C.N.P. LAB BLOOD NON ADD-ON Performing Organization Address City/State/ZIP Code Phon e Number [facility] - [address] [place], [place] [address] [facility] Lipid Panel (07/04/2013 6:58 AM AUTOMOTIVE GENERAL MANAGER) [facility] gist Method Time Signature Cholesterol, 57 SeeComment [facility] HDL, S MG/DL LABORATORIES - [facility] Comment: Reference Range: ? NCEP guidelines ? (ages 18y and up) ? Low: <40 ? Normal: 40-59 ? High : > or =60 ? Calculated LDL 115 SeeComment MG/DL [facility] Comment: Reference Range: ? NCEP guidelines ? (ages 18y and up) ? Optimal: <100 ? Near Optimal: 100-129 ? Borderline high: 130-159 ? High: 160-189 ? Very high: > or =190 ? Cholesterol, Non-HDL, 132 SeeComment MG/DL [facility] - Calculated [facility] Comment: Reference Range: ? NCEP guidelines ? Desirable: <130 ? Borderline high: 130-159 ? High: 160-189 ? Very high: > or =190 ? Cholesterol, Total 189 SeeComment MG/DL [facility] Comment: Reference Range: ? NCEP guidelines ? (ages 18y and up) ? Desirable: <200 ? Borderline high: 200-239 ? High: > or =240 ? Triglycerides 83 SeeComment MG/DL [facility] Comment: Reference Range: ? NCEP guidelines ? (ages 18y and up) ? Normal: <150 ? Borderline high: 150-199 ? High: 200-499 ? Very high: > or =500 ? Specimen Anatomical Collection Method Collection Time Receive d Time (Source) Location / / Volume Laterality 07/04/2013 6:58 AM 4 6:58 AUTOMOTIVE GENERAL MANAGER AM AUTOMOTIVE GENERAL MANAGER Vanessa Parra APRN, C.N.P. LAB BLOOD ADD-ON Performing Organization Address City/[facility]/ZIP [facility] Phon e Number [facility] - [address] [facility] Glucose, POCT (07/02/2013 11:40 AM AUTOMOTIVE GENERAL MANAGER) [facility] Method Time Signature Glucose, 107 70 - 140 [facility] POCT, B MG/DL LABORATORIES - [facility] Sample Site, Capillary [facility] Blood Gas, LABORATORIES - POCT [facility] Last Intake 2-3 hours [facility] Specimen Anatomical Collection Method Collection Time Receive d Time (Source) Location / / Volume Laterality 07/02/2013 11:40 07/02/2013 AM AUTOMOTIVE GENERAL MANAGER 11:40 AM AUTOMOTIVE GENERAL MANAGER Historical Provider LAB POCT ORDERABLES-MANUAL Performing Organization Address City/[facility] Phon e Number [facility] - [address] [facility] Glucose, POCT (07/02/2013 6:44 AM AUTOMOTIVE GENERAL MANAGER) [facility] Method Time Signature Last Intake > 4 hours [facility] Glucose, 98 70 - 140 [facility] POCT, B MG/DL LABORATORIES - [facility] Sample Site, Capillary [facility] Blood Gas, LABORATORIES - POCT [facility] Specimen Anatomical Collection Method Collection Time Receive d Time (Source) Location / / Volume Laterality 07/02/2013 6:44 AM 4 6:44 AUTOMOTIVE GENERAL MANAGER AM AUTOMOTIVE GENERAL MANAGER Historical Provider LAB POCT ORDERABLES-MANUAL Performing Organization Address City/[facility] Phon e Number [facility] - [address] [facility] ALT (Alanine Aminotransferase) (07/02/2013 6:09 AM AUTOMOTIVE GENERAL MANAGER) [facility] Method Time Signature Alanine 22 7 - 55 [facility] Aminotransferase U/L LABORATORIES - (ALT), S [facility] Specimen Anatomical Collection Method Collection Time Receive d Time (Source) Location / / Volume Laterality 07/02/2013 6:09 AM 4 6:09 AUTOMOTIVE GENERAL MANAGER AM AUTOMOTIVE GENERAL MANAGER Historical Provider LAB BLOOD ADD-ON Performing Organization Address City/State/ZIP Code Phon e Number [facility] - [address] [place], [place] [address] [facility] (ABNORMAL) CBC with Differential (07/02/2013 6:09 AM AUTOMOTIVE GENERAL MANAGER) [facility] Method Time Signature Hemoglobin 8.6 (L) 13.5 - [facility] 17.5 G/DL LABORATORIES - [facility] Hematocrit 26.0 (L) 38.8 - [facility] 50.0 % LABORATORIES - [facility] Lymphocytes 1.45 0.90 - [facility] 2.90 LABORATORIES - X10(9)/L [facility] Monocytes 0.60 0.30 - [facility] 0.90 LABORATORIES - X10(9)/L [facility] Erythrocytes 2.72 (L) 4.32 - [facility] 5.72 LABORATORIES - X10(12)/L [facility] MCV 95.6 (H) 81.2 - [facility] 95.1 [place] LABORATORIES - [facility] RBC Distrib 18.8 (H) 11.8 - [facility] Width 15.6 % LABORATORIES - [facility] Platelet Count 183 150 - 450 [facility] X10(9)/L LABORATORIES - [facility] Leukocytes 5.2 3.5 - [facility] 10.5 LABORATORIES - X10(9)/L [facility] Neutrophils 3.06 1.70 - [facility] 7.00 LABORATORIES - X10(9)/L [facility] Eosinophils 0.07 0.05 - [facility] 0.50 LABORATORIES - X10(9)/L [facility] Basophils 0.02 0.00 - [facility] 0.30 LABORATORIES - X10(9)/L [facility] Specimen Anatomical Collection Method Collection Time Receive d Time (Source) Location / / Volume Laterality 07/02/2013 6:09 AM 4 6:09 AUTOMOTIVE GENERAL MANAGER AM AUTOMOTIVE GENERAL MANAGER Historical Provider LAB BLOOD ADD-ON Performing Organization Address City/State/[facility] Code Phon e Number [facility] LABORATORIES - [address] [place], [place] [address] [facility] (ABNORMAL) Tacrolimus Level (07/02/2013 6:09 AM AUTOMOTIVE GENERAL MANAGER) [facility] Method Time Signature Tacrolimus, B 4.8 (L) 5.0-15.0 [facility] (Trough) LABORATORIES - NG/ML [facility] Tacrolimus . [facility] Blood Date of LABORATORIES - Last Dose [facility] Comment: Not Specified Tacrolimus Time of Last Dose . [facility] LABORATORIES - [facility] Comment: Not Specified Tacrolimus Blood Dose, mg . MG [facility] LABORATORIES - [facility] Comment: Not Specified Specimen Anatomical Collection Method Collection Time Receive d Time (Source) Location / / Volume Laterality 07/02/2013 6:09 AM 4 6:09 AUTOMOTIVE GENERAL MANAGER AM AUTOMOTIVE GENERAL MANAGER Historical Provider LAB BLOOD NON ADD-ON Performing Organization Address City/[facility] Phon e Number [facility]IES - [address] [facility] AST (Aspartate Aminotransferase) (07/02/2013 6:09 AM AUTOMOTIVE GENERAL MANAGER) P athologist Signature AST, Total, S 19 8 - 48 U/L [facility] [place] Specimen Anatomical Collection Method Collection Time Receive d Time (Source) Location / / Volume Laterality 07/02/2013 6:09 AM 4 6:09 AUTOMOTIVE GENERAL MANAGER AM AUTOMOTIVE GENERAL MANAGER Historical Provider LAB BLOOD ADD-ON Performing Organization Address City/[facility] Phon e Number [facility]IES - [address] [facility] (ABNORMAL) Bilirubin, Total (07/02/2013 6:09 AM AUTOMOTIVE GENERAL MANAGER) Patholo gist Method Time Signature Bilirubin, 1.4 (H) 0.1 - 1.0 [facility] Total, S MG/DL LABORATORIES - [facility] Specimen Anatomical Collection Method Collection Time Receive d Time (Source) Location / / Volume Laterality 07/02/2013 6:09 AM 4 6:09 AUTOMOTIVE GENERAL MANAGER AM AUTOMOTIVE GENERAL MANAGER Historical Provider LAB BLOOD ADD-ON Performing Organization Address City/[facility] Phon e Number [facility]IES - [address] [facility] Alkaline Phosphatase (07/02/2013 6:09 AM AUTOMOTIVE GENERAL MANAGER) P athologist Signature Alkaline 112 45 - 115 [facility] Phosphatase, S U/L LABORATORIES [facility] Specimen Anatomical Collection Method Collection Time Receive d Time (Source) Location / / Volume Laterality 07/02/2013 6:09 AM 4 6:09 AUTOMOTIVE GENERAL MANAGER AM AUTOMOTIVE GENERAL MANAGER Historical Provider LAB BLOOD ADD-ON Performing Organization Address City/[facility] Code Phon e Number [facility] LABORATORIES - [address] [place], [place] [address] [facility] (ABNORMAL) Electrolyte (Chem 4) Panel (07/02/2013 6:09 AM AUTOMOTIVE GENERAL MANAGER) [facility] Method Time Signature Sodium, S 137 135 - 145 [facility] MMOL/L LABORATORIES - [facility] Potassium, S 5.0 3.6 - 5.2 [facility] MMOL/L LABORATORIES - [facility] eGFR-Black/Afri >60 >60 [facility] can Ecuadorean ML/MIN/BS LABORATORIES - A [facility] BUN (Blood Urea 40 (H) 8 - 24 [facility] Nitrogen), S MG/DL LABORATORIES - [facility] Chloride, S 103 100 - 108 [facility] MMOL/L LABORATORIES - [facility] HX Bicarbonate, 25 22 - 29 [facility] P/S MMOL/L LABORATORIES - [facility] Creatinine 1.4 (H) 0.8 - 1.3 [facility] MG/DL LABORATORIES - [facility] eGFR 52 (L) >60 [facility] Non-Black/Afric ML/MIN/BS LABORATORIES - an Ecuadorean A [facility] Anion Gap 9 7 - 15 [facility] LABORATORIES - [facility] Glucose, S 98 70 - 140 [facility] MG/DL LABORATORIES - [facility] Specimen Anatomical Collection Method Collection Time Receive d Time (Source) Location / / Volume Laterality 07/02/2013 6:09 AM 4 6:09 AUTOMOTIVE GENERAL MANAGER AM AUTOMOTIVE GENERAL MANAGER Historical Provider LAB BLOOD ADD-ON Performing Organization Address [facility] Phon e Number [facility] LABORATORIES - [address] [facility] (ABNORMAL) Glucose, POCT (07/01/2013 9:15 PM AUTOMOTIVE GENERAL MANAGER) [facility] Method Time Signature Last Intake > 4 hours [facility] LABORATORIES - [facility] Glucose, 152 (H) 70 - 140 [facility] POCT, B MG/DL LABORATORIES - [facility] Sample Site, Capillary [facility] Blood Gas, LABORATORIES - POCT [facility] Specimen Anatomical Collection Method Collection Time Receive d Time (Source) Location / / Volume Laterality 07/01/2013 9:15 PM 4 9:15 AUTOMOTIVE GENERAL MANAGER PM AUTOMOTIVE GENERAL MANAGER Historical Provider LAB POCT ORDERABLES-MANUAL Performing Organization Address City/[facility]/ZIP [facility] Phon e Number [facility] LABORATORIES - [address] [place], [place] [address] [facility] (ABNORMAL) Glucose, POCT (07/01/2013 5:16 PM AUTOMOTIVE GENERAL MANAGER) [facility] Method Time Signature Glucose, POCT, 192 (H) 70 - 140 [facility] B MG/DL LABORATORIES - [facility] Specimen Anatomical Collection Method Collection Time Receive d Time (Source) Location / / Volume Laterality 07/01/2013 5:16 PM 4 5:16 AUTOMOTIVE GENERAL MANAGER PM AUTOMOTIVE GENERAL MANAGER Historical Provider LAB POCT ORDERABLES-MANUAL Performing Organization Address City/State/ZIP Code Phon e Number [facility] LABORATORIES - [address] [place], [place] [address] [facility] (ABNORMAL) Glucose, POCT (07/01/2013 11:27 AM AUTOMOTIVE GENERAL MANAGER) [facility] Method Time Signature Glucose, 152 (H) 70 - 140 [facility] POCT, B MG/DL LABORATORIES - [facility] Sample Site, Capillary [facility] Blood Gas, LABORATORIES - POCT [facility] Last Intake 1-2 hours [facility] Specimen Anatomical Collection Method Collection Time Receive d Time (Source) Location / / Volume Laterality 07/01/2013 11:27 07/01/2013 AM AUTOMOTIVE GENERAL MANAGER 11:27 AM AUTOMOTIVE GENERAL MANAGER Historical Provider LAB POCT ORDERABLES-MANUAL Performing Organization Address City/State/ZIP Code Phon e Number [facility] LABORATORIES - [address] [place], [place] [address] [facility] Glucose, POCT (07/01/2013 6:30 AM AUTOMOTIVE GENERAL MANAGER) [facility] Method [place] Signature Last Intake > 4 hours [facility] Glucose, 94 70 - 140 [facility] POCT, B MG/DL LABORATORIES - [facility] Sample Site, Capillary [facility] Blood Gas, LABORATORIES - POCT [facility] Specimen Anatomical Collection Method Collection Time Receive d Time (Source) Location / / Volume Laterality 07/01/2013 6:30 AM 4 6:30 AUTOMOTIVE GENERAL MANAGER AM AUTOMOTIVE GENERAL MANAGER Historical Provider LAB POCT ORDERABLES-MANUAL Performing Organization Address City/State/ZIP Code Phon e Number [facility] LABORATORIES - [address] [place], [place] [address] [facility] (ABNORMAL) Glucose, POCT (06/30/2013 8:54 PM AUTOMOTIVE GENERAL MANAGER) [facility] Method Time Signature Last Intake 2-3 hours [facility] [place] Glucose, 169 (H) 70 - 140 [facility] POCT, B MG/DL LABORATORIES - [facility] Sample Site, Capillary [facility] Blood Gas, LABORATORIES - POCT [facility] Specimen Anatomical Collection Method Collection Time Receive d Time (Source) Location / / Volume Laterality 06/30/2013 8:54 PM 4 8:54 AUTOMOTIVE GENERAL MANAGER PM AUTOMOTIVE GENERAL MANAGER Historical Provider LAB POCT ORDERABLES-MANUAL Performing Organization Address City/[facility]/ZIP Code Phon e Number [facility] LABORATORIES - [address] [facility] (ABNORMAL) Glucose, POCT (06/30/2013 4:31 PM AUTOMOTIVE GENERAL MANAGER) [facility] Method Time Signature Glucose, POCT, 198 (H) 70 - 140 [facility] B MG/DL [facility] - [facility] Specimen Anatomical Collection Method Collection Time Receive d Time (Source) Location / / Volume Laterality 06/30/2013 4:31 PM 4 4:31 AUTOMOTIVE GENERAL MANAGER PM AUTOMOTIVE GENERAL MANAGER Historical Provider LAB POCT ORDERABLES-MANUAL Performing Organization Address City/[facility]/ZIP Code Phon e Number [facility] LABORATORIES - [address] [facility] (ABNORMAL) Glucose, POCT (06/30/2013 3:27 PM AUTOMOTIVE GENERAL MANAGER) [facility] Method Time Signature Last Intake 1-2 hours [facility] [place] Glucose, 253 (H) 70 - 140 [facility] POCT, B MG/DL LABORATORIES - [facility] Sample Site, Capillary [facility] Blood Gas, LABORATORIES - POCT [facility] Specimen Anatomical Collection Method Collection Time Receive d Time (Source) Location / / Volume Laterality 06/30/2013 3:27 PM 4 3:27 AUTOMOTIVE GENERAL MANAGER PM AUTOMOTIVE GENERAL MANAGER Historical Provider LAB POCT ORDERABLES-MANUAL Performing Organization Address City/[facility] Code Phon e Number [facility] LABORATORIES - [address] [facility] AST (Aspartate Aminotransferase) (06/30/2013 6:13 AM AUTOMOTIVE GENERAL MANAGER) P athologist Signature AST, Total, S 20 8 - 48 U/L [facility] [place] Specimen Anatomical Collection Method Collection Time Receive d Time (Source) Location / / Volume Laterality 06/30/2013 6:13 AM 4 6:13 AUTOMOTIVE GENERAL MANAGER AM AUTOMOTIVE GENERAL MANAGER Authorizing Provider Result Dotty Morgan M.D. LAB BLOOD ADD-ON Performing Organization Address City/State/ZIP Code Phon e Number [facility] LABORATORIES - [address] [facility] (ABNORMAL) Tacrolimus Level (06/30/2013 6:13 AM AUTOMOTIVE GENERAL MANAGER) Analysis Performed At Path logist Time Signature Tacrolimus Time . [facility] of Last Dose LABORATORIES - [facility] Comment: Not Specified Tacrolimus Blood Dose, mg . MG [facility] LABORATORIES - [facility] Comment: Not Specified Tacrolimus, B 3.6 (L) 5.0-15.0 (Trough) [facility] NG/ML - [facility] PUS Tacrolimus Blood Date of . [facility] Last Dose - [facility] Comment: Not Specified Specimen Anatomical Collection Method Collection Time Receive d Time (Source) Location / / Volume Laterality 06/30/2013 6:13 AM 4 6:13 AUTOMOTIVE GENERAL MANAGER AM AUTOMOTIVE GENERAL MANAGER Fadumo Morgan M.D. LAB BLOOD NON ADD-ON Performing Organization Address City/[facility]/ZIP Code Phon e Number [facility] LABORATORIES - [address] [facility] ALT (Alanine Aminotransferase) (06/30/2013 6:13 AM AUTOMOTIVE GENERAL MANAGER) [facility] gist Method Time Signature Alanine 20 7 - 55 [facility] Aminotransferase U/L LABORATORIES - (ALT), S [facility] Specimen Anatomical Collection Method Collection Time Receive d Time (Source) Location / / Volume Laterality 06/30/2013 6:13 AM 4 6:13 AUTOMOTIVE GENERAL MANAGER AM AUTOMOTIVE GENERAL MANAGER Fadumo Morgan M.D. LAB BLOOD ADD-ON Performing Organization Address City/[facility]/ZIP Code Phon e Number [facility] LABORATORIES - [address] [facility] (ABNORMAL) Electrolyte (Chem 4) Panel (06/30/2013 6:13 AM AUTOMOTIVE GENERAL MANAGER) [facility] gist Method Time Signature Sodium, S 137 135 - 145 [facility] MMOL/L LABORATORIES - [facility] Potassium, S 5.4 (H) 3.6 - 5.2 [facility] MMOL/L LABORATORIES - [facility] eGFR-Black/Afri >60 >60 [facility] can Ecu[place]orean ML/MIN/BS LABORATORIES - A [facility] BUN (Blood Urea 35 (H) 8 - 24 [facility] Nitrogen), S MG/DL [facility] Chloride, S 104 100 - 108 [facility] MMOL/L [facility] HX Bicarbonate, 22 22 - 29 [facility] P/S MMOL/L LABORATORIES - [facility] Creatinine 1.4 (H) 0.8 - 1.3 [facility] MG/DL [facility] - [facility] eGFR 52 (L) >60 [facility] Non-Black/Afric ML/MIN/BS LABORATORIES - an Ecuadorean A [facility] Anion Gap 11 7 - 15 [facility] - [facility] Glucose, S 90 70 - 140 [facility] MG/DL [facility] [facility] Specimen Anatomical Collection Method Collection Time Receive d Time (Source) Location / / Volume Laterality 06/30/2013 6:13 AM 4 6:13 AUTOMOTIVE GENERAL MANAGER AM AUTOMOTIVE GENERAL MANAGER Fadumo Morgan M.D. LAB BLOOD ADD-ON Performing Organization Address City/State/ZIP Code Phon e Number [facility] LAB[facility]ATORIES - [address] [place], [place] [address] [facility] (ABNORMAL) CBC with Differential (06/30/2013 6:13 AM AUTOMOTIVE GENERAL MANAGER) [facility] gist Method Time Signature Erythrocytes 2.85 (L) 4.32 - [facility] 5.72 LABORATORIES - X10(12)/L [facility] MCV 95.4 (H) 81.2 - [facility] 95.1 FL [facility] Lymphocytes 1.43 0.90 - [facility] 2.90 LABORATORIES - X10(9)/L [facility] Monocytes 0.75 0.30 - [facility] 0.90 LABORATORIES - X10(9)/L [facility] Hemoglobin 9.0 (L) 13.5 - [facility] 17.5 G/DL [facility] Hematocrit 27.2 (L) 38.8 - [facility] 50.0 % [facility] RBC Distrib 18.8 (H) 11.8 - [facility] Width 15.6 % [facility] Platelet Count 202 150 - 450 [facility] X10(9)/L [facility] Leukocytes 5.7 3.5 - [facility] 10.5 LABORATORIES - X10(9)/L [facility] Neutrophils 3.38 1.70 - [facility] 7.00 LABORATORIES - X10(9)/L [facility] Eosinophils 0.09 0.05 - [facility] 0.50 LABORATORIES - X10(9)/L [facility] Basophils 0.04 0.00 - [facility] 0.30 LABORATORIES - X10(9)/L [facility] Specimen Anatomical Collection Method Collection Time Receive d Time (Source) Location / / Volume Laterality 06/30/2013 6:13 AM 4 6:13 AUTOMOTIVE GENERAL MANAGER AM AUTOMOTIVE GENERAL MANAGER Fadumo Morgan M.D. LAB BLOOD ADD-ON Performing Organization Address City/[facility]/ZIP Code Phon e Number [facility] - [address] [place] [phone] [facility] Glucose, POCT (06/30/2013 6:09 AM AUTOMOTIVE GENERAL MANAGER) [facility] gist Method Time Signature Glucose, 92 70 - 140 [facility] POCT, B MG/DL LABORATORIES - [facility] Sample Site, Capillary [facility] Blood Gas, LABORATORIES - POCT [facility] Last Intake > 4 hours [facility] - [facility] Specimen Anatomical Collection Method Collection Time Receive d Time (Source) Location / / Volume Laterality 06/30/2013 6:09 AM 4 6:09 AUTOMOTIVE GENERAL MANAGER AM AUTOMOTIVE GENERAL MANAGER Historical Provider LAB POCT ORDERABLES-MANUAL Performing Organization Address City/[facility]/ZIP Code Phon e Number [facility] - [address] [place] [address] [facility] (ABNORMAL) Glucose, POCT (06/29/2013 9:46 PM AUTOMOTIVE GENERAL MANAGER) [facility] [employer] Method Time Signature Last Intake 1-2 hours [facility] [place] Glucose, 222 (H) 70 - 140 [facility] POCT, B MG/DL LABORATORIES - [facility] Sample Site, Capillary [facility] Blood Gas, LABORATORIES - POCT [facility] Specimen Anatomical Collection Method Collection Time Receive d Time (Source) Location / / Volume Laterality 06/29/2013 9:46 PM 4 9:46 AUTOMOTIVE GENERAL MANAGER PM AUTOMOTIVE GENERAL MANAGER Historical Provider LAB POCT ORDERABLES-MANUAL Performing Organization Address City/[facility]/ZIP [facility] Phon e Number [facility] - [address] [place] [address] [facility] Glucose, POCT (06/29/2013 4:27 PM AUTOMOTIVE GENERAL MANAGER) [facility] Last Intake 2-3 hours [facility] [place] Glucose, 111 70 - 140 [facility] POCT, B MG/DL LABORATORIES - [facility] Sample Site, Capillary [facility] Blood Gas, LABORATORIES - POCT [facility] Specimen Anatomical Collection Method Collection Time Receive d Time (Source) Location / / Volume Laterality 06/29/2013 4:27 PM 4:27 AUTOMOTIVE GENERAL MANAGER PM AUTOMOTIVE GENERAL MANAGER Historical Provider LAB POCT ORDERABLES-MANUAL Performing Organization Address City/[facility]/ZIP Code Phon e Number [facility] - [address] [place], [place] [address] [facility] Glucose, POCT (06/29/2013 11:41 AM AUTOMOTIVE GENERAL MANAGER) [facility] Glucose, 84 70 - 140 [facility] POCT, B MG/DL LABORATORIES - [facility] Sample Site, Capillary [facility] Blood Gas, LABORATORIES - POCT [facility] Last Intake 3-4 hours [facility] Specimen Anatomical Collection Method Collection Time Receive d Time (Source) Location / / Volume Laterality 06/29/2013 11:41 06/29/2013 AM AUTOMOTIVE GENERAL MANAGER 11:41 AM AUTOMOTIVE GENERAL MANAGER Historical Provider LAB POCT ORDERABLES-MANUAL Performing Organization Address City/State/ZIP Code Phon e Number [facility] - [address] [place], [place] [address] [facility] Glucose, POCT (06/29/2013 11:21 AM AUTOMOTIVE GENERAL MANAGER) [facility] Glucose, 81 70 - 140 [facility] POCT, B MG/DL LABORATORIES - [facility] Sample Site, Capillary [facility] Blood Gas, LABORATORIES - POCT [facility] Specimen Anatomical Collection Method Collection Time Receive d Time (Source) Location / / Volume Laterality 06/29/2013 11:21 06/29/2013 AM AUTOMOTIVE GENERAL MANAGER 11:21 AM AUTOMOTIVE GENERAL MANAGER Historical Provider LAB POCT ORDERABLES-MANUAL Performing Organization Address City/State/ZIP Code Phon e Number [facility] - [address] [place], [place] [address] [facility] (ABNORMAL) Glucose, POCT (06/29/2013 10:54 AM AUTOMOTIVE GENERAL MANAGER) Patholo gist Method Time Signature Glucose, 68 (L) 70 - 140 [facility] POCT, B MG/DL LABORATORIES - [facility] Sample Site, Capillary [facility] Blood Gas, LABORATORIES - POCT [facility] Last Intake 2-3 hours [facility] [place] Specimen Anatomical Collection Method Collection Time Receive d Time (Source) Location / / Volume Laterality 06/29/2013 10:54 06/29/2013 AM AUTOMOTIVE GENERAL MANAGER 10:54 AM AUTOMOTIVE GENERAL MANAGER Historical Provider LAB POCT ORDERABLES-MANUAL Performing Organization Address City/[facility] Code Phon e Number [facility] - [address] [place], [place] [address] [facility] (ABNORMAL) Glucose, POCT (06/29/2013 10:30 AM AUTOMOTIVE GENERAL MANAGER) [facility] Signature Glucose, 58 (L) 70 - 140 [facility] POCT, B MG/DL LABORATORIES [facility] Sample Site, Capillary [facility] Blood Gas, LABORATORIES - POCT [facility] Specimen Anatomical Collection Method Collection Time Receive d Time (Source) Location / / Volume Laterality 06/29/2013 10:30 06/29/2013 AM AUTOMOTIVE GENERAL MANAGER 10:30 AM AUTOMOTIVE GENERAL MANAGER Historical Provider LAB POCT ORDERABLES-MANUAL Performing Organization Address City/[facility]/ZIP Code Phon e Number [facility] - [address] [place] [address] [facility] (ABNORMAL) Glucose, POCT (06/29/2013 6:48 AM AUTOMOTIVE GENERAL MANAGER) [facility] Signature Glucose, 226 (H) 70 - 140 [facility] POCT, B MG/DL [facility] - [facility] Sample Site, Capillary [facility] Blood Gas, LABORATORIES - POCT [facility] Last Intake 2-3 hours [facility] [place] Specimen Anatomical Collection Method Collection Time Receive d Time (Source) Location / / Volume Laterality 06/29/2013 6:48 AM 6:48 AUTOMOTIVE GENERAL MANAGER AM AUTOMOTIVE GENERAL MANAGER Historical Provider LAB POCT ORDERABLES-MANUAL Performing Organization Address City/[facility]/ZIP Code Phon e Number [facility] - [address] [place] [address] [facility] Glucose, POCT (06/28/2013 9:54 PM AUTOMOTIVE GENERAL MANAGER) [facility] Method [place] Signature Glucose, POCT, 129 70 - 140 [facility] B MG/DL LABORATORIES - [facility] Last Intake 2-3 hours [facility] [place] Specimen Anatomical Collection Method Collection Time Receive d Time (Source) Location / / Volume Laterality 06/28/2013 9:54 PM 4 9:54 AUTOMOTIVE GENERAL MANAGER PM AUTOMOTIVE GENERAL MANAGER Historical Provider LAB POCT ORDERABLES-MANUAL Performing Organization Address City/[facility]/ZIP Code Phon e Number [facility] - [address] [place], [place] [address] [facility] (ABNORMAL) Glucose, POCT (06/28/2013 6:24 PM AUTOMOTIVE GENERAL MANAGER) [facility] gist Method Time Signature Glucose, POCT, 312 (H) 70 - 140 [facility] B MG/DL LABORATORIES - [facility] Last Intake 1-2 hours [facility] [place] Specimen Anatomical Collection Method Collection Time Receive d Time (Source) Location / / Volume Laterality 06/28/2013 6:24 PM 4 6:24 AUTOMOTIVE GENERAL MANAGER PM AUTOMOTIVE GENERAL MANAGER Historical Provider LAB POCT ORDERABLES-MANUAL Performing Organization Address City/State/ZIP Code Phon e Number [facility] - [address] [place] [phone] [facility] documented in this encounter Visit Diagnoses Not on filedocumented in this encounter Additional Health Concerns Assessment Noted Time PHQ-9 Depression Total Score: 3 04/07/2013 9:47 AM CDT documented as of this encounter
--- OUTSIDE RECORDS SUMMARY | 2022-04-13 12:40 | XMS_ITS | Encounter Summary ---
:1955 Author Organization [facility] Address [address] [place] [address] Care Team Providers Name Role Phone Unavailable Primary Care Provider Unavailable Encounter Details Date Type Department Care Team Description 09/30/2013 Hospital Encounter HX NO MAPPING Roshan Grace M.S .N., R.N., C.C.T.C. 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 [address] [place] [phone] 05/08/2022 Appointment Laboratory Medicine Angélica Granger P.A.-CDemetrius [address] [place] [phone] 05/08/2022 Clinical Admitting/Central Communication Scheduling 05/10/2022 Appointment Radiology Jeremie Rose M.D. [address] [place] [phone] 05/10/2022 Comprehensive Visit Orthopedic Surgery Warner Graves M.D. [address] [place] [phone] 05/22/2022 Appointment Laboratory Medicine Angélica Granger P.A.-C. [address] [place] [phone] 06/05/2022 Appointment Laboratory Medicine Angélica Granger P.A.-C. [address] [place] [phone] 06/19/2022 Appointment Laboratory Medicine Angélica Granger P.A.-C. [address] [place] [phone] 07/03/2022 Appointment Laboratory Medicine Angélica Granger P.A.-C. [address] [place] [phone] 07/17/2022 Appointment Laboratory Medicine Angélica Granger P.A.-C. [address] [place] [phone] 07/31/2022 Appointment Laboratory Medicine Angélica Granger P.A.-C. [address] [place] [phone] 08/14/2022 Appointment Laboratory Angélica Royal P.A.-C. [address] [place] [phone] 08/28/2022 Appointment Laboratory Medicine Angélica Granger P.A.-C. [address] [place] [phone] documented as of this encounter Visit Diagnoses Not on filedocumented in this encounter Additional Health Concerns Assessment Noted Time PHQ-9 Depression Total Score: 4 08/11/2013 10:10 AM CS T documented as of this encounter
--- OUTSIDE RECORDS SUMMARY | 2022-04-13 12:41 | XMS_ITS | Encounter Summary ---
:1955 Author Organization [facility] Address [address] [place] [address] Care Team Providers Name Role Phone Unavailable Primary Care Provider Unavailable Encounter Details Date Type Department Care Team Description 06/22/2013 - Hospital Encounter HX RST UNIT 10-2 MilagrosOtoniel 06/28/2013 MELISSA Tubbs M.D. [address] [place] [phone] Social History Tobacco Use Types Packs/Day Years [...] Recorded Male 05/16/2020 4:27 PM DIRECTOR OF TRANSPORTATION documented as of this encounter Last Filed Vital Signs Vital Sign Reading Time Taken Comments Blood Pressure 136/88 06/28/2013 12:10 NIBP - Value fr om PM DIRECTOR OF TRANSPORTATION [employer]. Pulse 77 06/28/2013 12:10 Value from [facility] tplus. PM DIRECTOR OF TRANSPORTATION Temperature - - Respiratory Rate 14 06/28/2013 12:08 Value from [facility] rtplus. PM DIRECTOR OF TRANSPORTATION Oxygen Saturation - - Inhaled Oxygen - - Concentration Weight 71.8 kg (158 lb 4.6 06/28/2013 2:11 AM oz) DIRECTOR OF TRANSPORTATION Height 178 cm (5' 10.08) 06/28/2013 2:11 AM DIRECTOR OF TRANSPORTATION Body Mass Index 22.66 06/28/2013 2:11 AM DIRECTOR OF TRANSPORTATION documented in this encounter Medications at Time [...] Laboratory Medicine Angélica Granger P.A.-C. [address] [place] [phone] 04/25/2022 Office Visit Otorhinolaryngology Dex Matta APRN, C.N.P., M.S.N. [address] [place] [phone] 05/08/2022 Appointment Laboratory Medicine Angélica Granger P.A.-C. [address] [place] [phone] 05/08/2022 Clinical Admitting/Central Communication Scheduling 05/10/2022 Appointment Radiology Jeremie Rose M.D. [address] [place] [phone] 05/10/2022 Comprehensive Visit Orthopedic Surgery Warner Graves M.D. [address] [place] [phone] 05/22/2022 Appointment Laboratory Medicine Angélica Granger P.A.-C. [address] [place] [phone] 06/05/2022 Appointment Laboratory Medicine Angélica Granger P.A.-C. [address] [place] [phone] 06/19/2022 Appointment Laboratory Medicine Angélica Granger P.A.-C. [address] [place] [phone] 07/03/2022 Appointment Laboratory Medicine Angélica Granger P.A.-C. [address] [place] [phone] 07/17/2022 Appointment Laboratory Medicine Angélica Granger P.A.-C. [address] [place] [phone] 07/31/2022 Appointment Laboratory Medicine Angélica Granger P.A.-C. [address] [place] [phone] 08/14/2022 Appointment Laboratory Medicine Angélica Granger Edmundo Stern [address] [place] [phone] 08/28/2022 Appointment Laboratory Medicine Angélica GrangerEdmundo [address] [place] [phone] documented as of this encounter Procedures Procedure Name Priority Date/Time Associated Comments Diagnosis GLUCOSE POCT, B Routine 06/28/2013 12:07 Results for this PM DIRECTOR OF TRANSPORTATION procedure are i n the results section. GLUCOSE POCT, B Routine 06/28/2013 6:43 Results f or this AM DIRECTOR OF TRANSPORTATION procedure are i n the results section. GLUCOSE POCT, B Routine 06/27/2013 9:42 Results f or this PM DIRECTOR OF TRANSPORTATION procedure are i n the results section. GLUCOSE POCT, B Routine 06/27/2013 4:52 Results f or this PM DIRECTOR OF TRANSPORTATION procedure are i n the results section. GLUCOSE POCT, B Routine 06/27/2013 11:47 Results for this AM DIRECTOR OF TRANSPORTATION procedure are i n the results section. GLUCOSE POCT, B Routine 06/27/2013 5:30 Results f or this AM DIRECTOR OF TRANSPORTATION procedure are i n the results section. ELECTROLYTE (CHEM 4) Routine 06/27/2013 5:28 Resu lts for this PANEL, S/P AM DIRECTOR OF TRANSPORTATION procedure are i n the results section. TACROLIMUS LEVEL, B Routine 06/27/2013 5:28 Resul ts for this AM DIRECTOR OF TRANSPORTATION procedure are i n the results section. GLUCOSE POCT, B Routine 06/26/2013 9:36 Results f or this PM DIRECTOR OF TRANSPORTATION procedure are i n the results section. GLUCOSE POCT, B Routine 06/26/2013 5:22 Results f or this PM DIRECTOR OF TRANSPORTATION procedure are i n the results section. GLUCOSE POCT, B Routine 06/26/2013 12:57 Results for this PM DIRECTOR OF TRANSPORTATION procedure are i n the results section. GLUCOSE POCT, B Routine 06/26/2013 8:14 Results f or this AM DIRECTOR OF TRANSPORTATION procedure are i n the results section. ELECTROLYTE (CHEM 4) Routine 06/26/2013 5:21 Resu lts for this PANEL, S/P AM DIRECTOR OF TRANSPORTATION procedure are i n the results section. CBC NO CALL BACK, REFLEX Routine 06/26/2013 5:21 Results for this T/S AM DIRECTOR OF TRANSPORTATION procedure are i n the results section. TACROLIMUS LEVEL, B Routine 06/26/2013 5:21 Resul ts for this AM DIRECTOR OF TRANSPORTATION procedure are i n the results section. PROTHROMBIN TIME (PT), P Routine 06/26/2013 5:21 Results for this AM DIRECTOR OF TRANSPORTATION procedure are i n the results section. BILIRUBIN, S Routine 06/26/2013 5:21 Results for this AM DIRECTOR OF TRANSPORTATION procedure are i n the results section. ALANINE AMINOTRANSFERASE Routine 06/26/2013 5:21 Results for this (ALT), S/P AM DIRECTOR OF TRANSPORTATION procedure are i n the results section. ASPARTATE Routine 06/26/2013 5:21 Results for this AMINOTRANSFERASE (AST), AM DIRECTOR OF TRANSPORTATION proc edure are in S/P the results section. ALKALINE PHOSPHATASE, Routine 06/26/2013 5:21 Res ults for this S/P AM DIRECTOR OF TRANSPORTATION procedure are i n the results section. MAGNESIUM, S Routine 06/26/2013 5:21 Results for this AM DIRECTOR OF TRANSPORTATION procedure are i n the results section. CALCIUM, TOT, S/P Routine 06/26/2013 5:21 Results for this AM DIRECTOR OF TRANSPORTATION procedure are i n the results section. GLUCOSE POCT, B Routine 06/25/2013 9:43 Results f or this PM DIRECTOR OF TRANSPORTATION procedure are i n the results section. POTASSIUM, S/P Routine 06/25/2013 7:45 Results fo r this PM DIRECTOR OF TRANSPORTATION procedure are i n the results section. GLUCOSE POCT, B Routine 06/25/2013 5:53 Results f or this PM DIRECTOR OF TRANSPORTATION procedure are i n the results section. GLUCOSE POCT, B Routine 06/25/2013 1:55 Results f or this PM DIRECTOR OF TRANSPORTATION procedure are i n the results section. GLUCOSE POCT, B Routine 06/25/2013 8:25 Results f or this AM DIRECTOR OF TRANSPORTATION procedure are i n the results section. GLUCOSE POCT, B Routine 06/25/2013 5:26 Results f or this AM DIRECTOR OF TRANSPORTATION procedure are i n the results section. ELECTROLYTE (CHEM 4) Routine 06/25/2013 5:16 Resu lts for this PANEL, S/P AM DIRECTOR OF TRANSPORTATION procedure are i n the results section. CBC NO CALL BACK, REFLEX Routine 06/25/2013 5:16 Results for this T/S AM DIRECTOR OF TRANSPORTATION procedure are i n the results section. TACROLIMUS LEVEL, B Routine 06/25/2013 5:16 Resul ts for this AM DIRECTOR OF TRANSPORTATION procedure are i n the results section. PROTHROMBIN TIME (PT), P Routine 06/25/2013 5:16 Results for this AM DIRECTOR OF TRANSPORTATION procedure are i n the results section. BILIRUBIN, S Routine 06/25/2013 5:16 Results for this AM DIRECTOR OF TRANSPORTATION procedure are i n the results section. ALANINE AMINOTRANSFERASE Routine 06/25/2013 5:16 Results for this (ALT), S/P AM DIRECTOR OF TRANSPORTATION procedure are i n the results section. ASPARTATE Routine 06/25/2013 5:16 Results for this AMINOTRANSFERASE (AST), AM DIRECTOR OF TRANSPORTATION proc edure are in S/P the results section. ALKALINE PHOSPHATASE, Routine 06/25/2013 5:16 Res ults for this S/P AM DIRECTOR OF TRANSPORTATION procedure are i n the results section. MAGNESIUM, S Routine 06/25/2013 5:16 Results for this AM DIRECTOR OF TRANSPORTATION procedure are i n the results section. CALCIUM, TOT, S/P Routine 06/25/2013 5:16 Results for this AM DIRECTOR OF TRANSPORTATION procedure are i n the results section. ALBUMIN, S/P Routine 06/25/2013 5:16 Results for this AM DIRECTOR OF TRANSPORTATION procedure are i n the results section. GLUCOSE POCT, B Routine 06/24/2013 10:03 Results for this PM DIRECTOR OF TRANSPORTATION procedure are i n the results section. GLUCOSE POCT, B Routine 06/24/2013 6:21 Results f or this PM DIRECTOR OF TRANSPORTATION procedure are i n the results section. GLUCOSE POCT, B Routine 06/24/2013 11:07 Results for this AM DIRECTOR OF TRANSPORTATION procedure are i n the results section. GLUCOSE POCT, B Routine 06/24/2013 6:30 Results f or this AM DIRECTOR OF TRANSPORTATION procedure are i n the results section. GLUCOSE POCT, B Routine 06/23/2013 10:12 Results for this PM DIRECTOR OF TRANSPORTATION procedure are i n the results section. GLUCOSE POCT, B Routine 06/23/2013 5:11 Results f or this PM DIRECTOR OF TRANSPORTATION procedure are i n the results section. GLUCOSE POCT, B Routine 06/23/2013 11:31 Results for this AM DIRECTOR OF TRANSPORTATION procedure are i n the results section. GLUCOSE POCT, B Routine 06/23/2013 6:10 Results f or this AM DIRECTOR OF TRANSPORTATION procedure are i n the results section. ELECTROLYTE (CHEM 4) Routine 06/23/2013 5:24 Resu lts for this PANEL, S/P AM DIRECTOR OF TRANSPORTATION procedure are i n the results section. TACROLIMUS LEVEL, B Routine 06/23/2013 5:24 Resul ts for this AM DIRECTOR OF TRANSPORTATION procedure are i n the results section. PROTHROMBIN TIME (PT), P Routine 06/23/2013 5:24 Results for this AM DIRECTOR OF TRANSPORTATION procedure are i n the results section. CBC WITHOUT Routine 06/23/2013 5:24 Results for this DIFFERENTIAL, B AM DIRECTOR OF TRANSPORTATION procedure ar e in the results section. ALANINE AMINOTRANSFERASE Routine 06/23/2013 5:24 Results for this (ALT), S/P AM DIRECTOR OF TRANSPORTATION procedure are i n the results section. ASPARTATE Routine 06/23/2013 5:24 Results for this AMINOTRANSFERASE (AST), AM DIRECTOR OF TRANSPORTATION proc edure are in S/P the results section. PHOSPHORUS (INORGANIC), Routine 06/23/2013 5:24 R esults for this S AM DIRECTOR OF TRANSPORTATION procedure are i n the results section. ALKALINE PHOSPHATASE, Routine 06/23/2013 5:24 Res ults for this S/P AM DIRECTOR OF TRANSPORTATION procedure are i n the results section. MAGNESIUM, S Routine 06/23/2013 5:24 Results for this AM DIRECTOR OF TRANSPORTATION procedure are i n the results section. BILIRUBIN DIRECT, S/P Routine 06/23/2013 5:24 Res ults for this AM DIRECTOR OF TRANSPORTATION procedure are i n the results section. BILIRUBIN, TOT, S/P Routine 06/23/2013 5:24 Resul ts for this AM DIRECTOR OF TRANSPORTATION procedure are i n the results section. ALBUMIN, S/P Routine 06/23/2013 5:24 Results for this AM DIRECTOR OF TRANSPORTATION procedure are i n the results section. GLUCOSE POCT, B Routine 06/23/2013 1:54 Results f or this AM DIRECTOR OF TRANSPORTATION procedure are i n the results section. GLUCOSE POCT, B Routine 06/22/2013 10:32 Results for this PM DIRECTOR OF TRANSPORTATION procedure are i n the results section. HX MICROBIOLOGY REPORTS Routine 06/22/2013 10:04 Results for this PM DIRECTOR OF TRANSPORTATION procedure are i n the results section. MICROSCOPIC MANUAL Routine 06/22/2013 10:04 Resul ts for this PM DIRECTOR OF TRANSPORTATION procedure are i n the results section. KETONES,QL(U) Routine 06/22/2013 10:04 Results fo r this PM DIRECTOR OF TRANSPORTATION procedure are i n the results section. GRAM'S ST, U Routine 06/22/2013 10:04 Results for this PM DIRECTOR OF TRANSPORTATION procedure are i n the results section. URINALYSIS WITH Routine 06/22/2013 10:04 Results for this MICROSCOPIC PM DIRECTOR OF TRANSPORTATION procedure are i n the results section. HX MICROBIOLOGY REPORTS Routine 06/22/2013 7:13 R esults for this PM DIRECTOR OF TRANSPORTATION procedure are i n the results section. HX MICROBIOLOGY REPORTS Routine 06/22/2013 7:02 R esults for this PM DIRECTOR OF TRANSPORTATION procedure are i n the results section. AMMONIA Routine 06/22/2013 7:02 Results for this PM DIRECTOR OF TRANSPORTATION procedure are i n the results section. HXGENERAL PATHOLOGY Routine 06/14/2013 9:16 Resul ts for this REPORT AM DIRECTOR OF TRANSPORTATION procedure are i n the results section. documented in this encounter Results (ABNORMAL) Glucose, POCT (06/28/2013 12:07 PM DIRECTOR OF TRANSPORTATION) [facility] Method Time Signature Glucose, 192 (H) 70 - 140 [facility] POCT, B MG/DL [facility] Sample Site, Capillary [facility] Blood Gas, LABORATORIES - POCT [facility] Last Intake 2-3 hours [facility] Specimen Anatomical Collection Method Collection Time Receive d Time (Source) Location / / Volume Laterality 06/28/2013 12:07 06/28/2013 PM DIRECTOR OF TRANSPORTATION 12:07 PM DIRECTOR OF TRANSPORTATION Historical Provider LAB POCT ORDERABLES-MANUAL Performing Organization Address City/[facility] Phon e Number [facility] LABORATORIES - [address] [place] [address] [facility] Glucose, POCT (06/28/2013 6:43 AM DIRECTOR OF TRANSPORTATION) [facility] Method Time Signature Last Intake 1-2 hours [facility] Glucose, 100 70 - 140 [facility] POCT, B MG/DL [facility] Sample Site, Capillary [facility] Blood Gas, LABORATORIES - POCT [facility] Specimen Anatomical Collection Method Collection Time Receive d Time (Source) Location / / Volume Laterality 06/28/2013 6:43 AM 4 6:43 DIRECTOR OF TRANSPORTATION AM DIRECTOR OF TRANSPORTATION Historical Provider LAB POCT ORDERABLES-MANUAL Performing Organization Address City/[facility] Phon e Number [facility] LABORATORIES - [address] [place] [address] [facility] Glucose, POCT (06/27/2013 9:42 PM DIRECTOR OF TRANSPORTATION) [facility] Method Time Signature Glucose, 108 70 - 140 [facility] POCT, B MG/DL [facility] Sample Site, Capillary [facility] Blood Gas, LABORATORIES - POCT [facility] Specimen Anatomical Collection Method Collection Time Receive d Time (Source) Location / / Volume Laterality 06/27/2013 9:42 PM 4 9:42 DIRECTOR OF TRANSPORTATION PM DIRECTOR OF TRANSPORTATION Historical Provider LAB POCT ORDERABLES-MANUAL Performing Organization Address City/[facility]/ZIP Code Phon e Number [facility] LABORATORIES - [address] [place], [place] [address] [facility] (ABNORMAL) Glucose, POCT (06/27/2013 4:52 PM DIRECTOR OF TRANSPORTATION) [facility] gist Method Time Signature Last Intake 1-2 hours [facility] - [facility] Glucose, 381 (H) 70 - 140 [facility] POCT, B MG/DL [facility] Sample Site, Capillary [facility] Blood Gas, LABORATORIES - POCT [facility] Specimen Anatomical Collection Method Collection Time Receive d Time (Source) Location / / Volume Laterality 06/27/2013 4:52 PM 4 4:52 DIRECTOR OF TRANSPORTATION PM DIRECTOR OF TRANSPORTATION Historical Provider LAB POCT ORDERABLES-MANUAL Performing Organization Address City/[facility]/ZIP Code Phon e Number [facility] LABORATORIES - [address] [place], [place] [address] [facility] Glucose, POCT (06/27/2013 11:47 AM DIRECTOR OF TRANSPORTATION) [facility] gist Method Time Signature Glucose, 136 70 - 140 [facility] POCT, B MG/DL [facility] Sample Site, Capillary [facility] Blood Gas, LABORATORIES - POCT [facility] Last Intake > 4 hours [facility] Specimen Anatomical Collection Method Collection Time Receive d Time (Source) Location / / Volume Laterality 06/27/2013 11:47 06/27/2013 AM DIRECTOR OF TRANSPORTATION 11:47 AM DIRECTOR OF TRANSPORTATION Historical Provider LAB POCT ORDERABLES-MANUAL Performing Organization Address City/[facility]/ZIP [facility] Phon e Number [facility] LABORATORIES - [address] [place], [place] [address] [facility] (ABNORMAL) Glucose, POCT (06/27/2013 5:30 AM DIRECTOR OF TRANSPORTATION) [facility] gist Method Time Signature Glucose, 199 (H) 70 - 140 [facility] POCT, B MG/DL [facility] Sample Site, Capillary [facility] Blood Gas, LABORATORIES - POCT [facility] Last Intake 3-4 hours [facility] Specimen Anatomical Collection Method Collection Time Receive d Time (Source) Location / / Volume Laterality 06/27/2013 5:30 AM 4 5:30 DIRECTOR OF TRANSPORTATION AM DIRECTOR OF TRANSPORTATION Historical Provider LAB POCT ORDERABLES-MANUAL Performing Organization Address [facility]/ZIP Code Phon e Number [facility] LABORATORIES - [address] [place], [place] [address] [facility] Tacrolimus Level (06/27/2013 5:28 AM DIRECTOR OF TRANSPORTATION) Analysis Performed At [facility] logist Time Signature Tacrolimus, B 5.2 5.0-15.0 [facility] (Trough) LABORATORIES - NG/ML [facility] Tacrolimus . [facility] Blood Date of LABORATORIES - Last Dose [facility] Comment: Not Specified Tacrolimus Time of Last Dose . M [facility] - [facility] Comment: Not Specified Tacrolimus Blood Dose, mg . MG [facility] - [facility] Comment: Not Specified Specimen Anatomical Collection Method Collection Time Receive d Time (Source) Location / / Volume Laterality 06/27/2013 5:28 AM 4 5:28 DIRECTOR OF TRANSPORTATION AM DIRECTOR OF TRANSPORTATION Joselyn Fay M.D. LAB BLOOD NON ADD-ON Performing Organization Address City/[facility]/ZIP Code Phon e Number [facility] LABORATORIES - [address] [place] [address] [facility] (ABNORMAL) Electrolyte (Chem 4) Panel (06/27/2013 5:28 AM DIRECTOR OF TRANSPORTATION) [facility] gist Method Time Signature Sodium, S 134 (L) 135 - 145 [facility] MMOL/L [facility] Potassium, S 5.0 3.6 - 5.2 [facility] MMOL/L [facility] Creatinine 1.4 (H) 0.8 - 1.3 [facility] MG/DL [facility] eGFR 52 (L) >60 [facility] Non-Black/Afric ML/MIN/BS LABORATORIES - an Portuguese A [facility] eGFR-Black/Afri >60 >60 [facility] can Portuguese ML/MIN/BS LABORATORIES - A [facility] BUN (Blood Urea 27 (H) 8 - 24 [facility] Nitrogen), S MG/DL [facility] Anion Gap 9 7 - 15 [facility] - [facility] Glucose, S 212 (H) 70 - 140 [facility] MG/DL [facility] Chloride, S 102 100 - 108 [facility] MMOL/L [facility] HX Bicarbonate, 23 22 - 29 [facility] P/S MMOL/L [facility] Specimen Anatomical Collection Method Collection Time Receive d Time (Source) Location / / Volume Laterality 06/27/2013 5:28 AM 5:28 DIRECTOR OF TRANSPORTATION AM DIRECTOR OF TRANSPORTATION Joselyn Fay M.D. LAB BLOOD ADD-ON Performing Organization Address City/[facility]/ZIP [facility] Phon e Number [facility] LABORATORIES - [address] [place] [address] [facility] Glucose, POCT (06/26/2013 9:36 PM DIRECTOR OF TRANSPORTATION) P athologist Signature Glucose, POCT, 125 70 - 140 [facility] B MG/DL [facility] Specimen Anatomical Collection Method Collection Time Receive d Time (Source) Location / / Volume Laterality 06/26/2013 9:36 PM 9:36 DIRECTOR OF TRANSPORTATION PM DIRECTOR OF TRANSPORTATION Historical Provider LAB POCT ORDERABLES-MANUAL Performing Organization Address City/[facility] Phon e Number [facility]ORATORIES - [address] [place] [address] [facility] (ABNORMAL) Glucose, POCT (06/26/2013 5:22 PM DIRECTOR OF TRANSPORTATION) [facility] gist Method Time Signature Glucose, 252 (H) 70 - 140 [facility] POCT, B MG/DL [facility] Sample Site, Capillary [facility] Blood Gas, LABORATORIES - POCT [facility] Last Intake 3-4 hours [facility] Specimen Anatomical Collection Method Collection Time Receive d Time (Source) Location / / Volume Laterality 06/26/2013 5:22 PM 4 5:22 DIRECTOR OF TRANSPORTATION PM DIRECTOR OF TRANSPORTATION Historical Provider LAB POCT ORDERABLES-MANUAL Performing Organization Address City/[facility] Phon e Number [facility] LABORATORIES - [address] [place] [address] [facility] (ABNORMAL) Glucose, POCT (06/26/2013 12:57 PM DIRECTOR OF TRANSPORTATION) [facility] gist Method Time Signature Glucose, 171 (H) 70 - 140 [facility] POCT, B MG/DL [facility] Sample Site, Capillary [facility] Blood Gas, LABORATORIES - POCT [facility] Last Intake 3-4 hours [facility] Specimen Anatomical Collection Method Collection Time Receive d Time (Source) Location / / Volume Laterality 06/26/2013 12:57 06/26/2013 PM DIRECTOR OF TRANSPORTATION 12:57 PM DIRECTOR OF TRANSPORTATION Historical Provider LAB POCT ORDERABLES-MANUAL Performing Organization Address City/[facility]/ZIP Code Phon e Number [facility] LABORATORIES - [address] [place] [address] [facility] (ABNORMAL) Glucose, POCT (06/26/2013 8:14 AM DIRECTOR OF TRANSPORTATION) [facility] Method Time Signature Glucose, 179 (H) 70 - 140 [facility] POCT, B MG/DL [facility] Sample Site, Capillary [facility] Blood Gas, LABORATORIES - POCT [facility] Last Intake 3-4 hours [facility]IES - [facility] Specimen Anatomical Collection Method Collection Time Receive d Time (Source) Location / / Volume Laterality 06/26/2013 8:14 AM 4 8:14 DIRECTOR OF TRANSPORTATION AM DIRECTOR OF TRANSPORTATION Historical Provider LAB POCT ORDERABLES-MANUAL Performing Organization Address City/[facility] Phon e Number [facility]IES - [address] [place] [address] [facility] (ABNORMAL) Bilirubin (06/26/2013 5:21 AM DIRECTOR OF TRANSPORTATION) [facility] Method Time Signature Bilirubin, 2.1 (H) 0.1 - 1.0 [facility] Total, S MG/DL [facility] Bilirubin, 1.3 (H) 0.0 - 0.3 [facility] Direct, S MG/DL [facility] Specimen Anatomical Collection Method Collection Time Receive d Time (Source) Location / / Volume Laterality 06/26/2013 5:21 AM 4 5:21 DIRECTOR OF TRANSPORTATION AM DIRECTOR OF TRANSPORTATION Tracy Marie M.D. LAB BLOOD ADD-ON Performing Organization Address City/State/ZIP Code Phon e Number [facility] LABORATORIES - [address] [address] [facility] (ABNORMAL) CBC with Differential - No Alerts (06/26/2013 5:21 AM DIRECTOR OF TRANSPORTATION) [facility] Method Time Signature Hemoglobin 9.0 (L) 13.5 - [facility] 17.5 G/DL [facility] Hematocrit 25.7 (L) 38.8 - [facility] 50.0 % LABORATORIES - [facility] Leukocytes 6.4 3.5 - [facility] 10.5 LABORATORIES - X10(9)/L [facility] Neutrophils 4.31 1.70 - [facility] 7.00 LABORATORIES - X10(9)/L [facility] Erythrocytes 2.75 (L) 4.32 - [facility] 5.72 LABORATORIES - X10(12)/L [facility] MCV 93.5 81.2 - [facility] 95.1 [place] LABORATORIES - [facility] RBC Distrib 17.8 (H) 11.8 - [facility] Width 15.6 % LABORATORIES - [facility] Platelet Count 221 150 - 450 [facility] X10(9)/L LABORATORIES - [facility] Lymphocytes 1.29 0.90 - [facility] 2.90 LABORATORIES - X10(9)/L [facility] Monocytes 0.71 0.30 - [facility] 0.90 LABORATORIES - X10(9)/L [facility] Eosinophils 0.11 0.05 - [facility] 0.50 LABORATORIES - X10(9)/L [facility] Basophils 0.02 0.00 - [facility] 0.30 LABORATORIES - X10(9)/L [facility] Specimen Anatomical Collection Method Collection Time Receive d Time (Source) Location / / Volume Laterality 06/26/2013 5:21 AM 4 5:21 DIRECTOR OF TRANSPORTATION AM DIRECTOR OF TRANSPORTATION Tracy Marie M.D. LAB BLOOD NON ADD-ON Performing Organization Address City/[facility] Code Phon e Number [facility] - [address] (ABNORMAL) Calcium, Total (06/26/2013 5:21 AM DIRECTOR OF TRANSPORTATION) [facility] [employer] Method Time Signature Calcium, 7.8 (L) 8.9 - 10.1 [facility] Total, S MG/DL LABORATORIES - [facility] Specimen Anatomical Collection Method Collection Time Receive d Time (Source) Location / / Volume Laterality 06/26/2013 5:21 AM 4 5:21 DIRECTOR OF TRANSPORTATION AM DIRECTOR OF TRANSPORTATION Tracy Marie M.D. LAB BLOOD ADD-ON Performing Organization Address City/[facility] Phon e Number [facility] - [address] [place] [address] 05 [facility] (ABNORMAL) Tacrolimus Level (06/26/2013 5:21 AM DIRECTOR OF TRANSPORTATION) [facility] [employer] Method Time Signature Tacrolimus, B 4.9 (L) 5.0-15.0 [facility] (Trough) LABORATORIES - NG/ML [facility] Tacrolimus . [facility] Blood Date of LABORATORIES - Last Dose [facility] Comment: Not Specified Tacrolimus Time of Last Dose . M [facility] LABORATORIES - [facility] Comment: Not Specified Tacrolimus Blood Dose, mg . MG [facility] LABORATORIES - [facility] Comment: Not Specified Specimen Anatomical Collection Method Collection Time Receive d Time (Source) Location / / Volume Laterality 06/26/2013 5:21 AM 4 5:21 DIRECTOR OF TRANSPORTATION AM DIRECTOR OF TRANSPORTATION Tracy Marie M.D. LAB BLOOD NON ADD-ON Performing Organization Address City/State/ZIP Code Phon e Number [facility] - [address] [place] [address] [facility] Alkaline Phosphatase (06/26/2013 5:21 AM DIRECTOR OF TRANSPORTATION) P athologist Signature Alkaline 111 45 - 115 [facility] Phosphatase, S U/L LABORATORIES - [facility] Specimen Anatomical Collection Method Collection Time Receive d Time (Source) Location / / Volume Laterality 06/26/2013 5:21 AM 4 5:21 DIRECTOR OF TRANSPORTATION AM DIRECTOR OF TRANSPORTATION Tracy Marie M.D. LAB BLOOD ADD-ON Performing Organization Address City/State/ZIP Code Phon e Number [facility] - [address] AST (Aspartate Aminotransferase) (06/26/2013 5:21 AM DIRECTOR OF TRANSPORTATION) P athologist Signature AST, Total, S 14 8 - 48 U/L [facility] Specimen Anatomical Collection Method Collection Time Receive d Time (Source) Location / / Volume Laterality 06/26/2013 5:21 AM 4 5:21 DIRECTOR OF TRANSPORTATION AM DIRECTOR OF TRANSPORTATION Tracy Marie M.D. LAB BLOOD ADD-ON Performing Organization Address City/State/ZIP Code Phon e Number [facility] - [address] [address] [facility] ALT (Alanine Aminotransferase) (06/26/2013 5:21 AM DIRECTOR OF TRANSPORTATION) Patholo gist Method Time Signature Alanine 39 7 - 55 [facility] Aminotransferase U/L LABORATORIES - (ALT), S [facility] Specimen Anatomical Collection Method Collection Time Receive d Time (Source) Location / / Volume Laterality 06/26/2013 5:21 AM 4 5:21 DIRECTOR OF TRANSPORTATION AM DIRECTOR OF TRANSPORTATION Tracy Marie M.D. LAB BLOOD ADD-ON Performing Organization Address City/[facility]/ZIP Code Phon e Number [facility] - [address] [address] 05 [facility] Magnesium (06/26/2013 5:21 AM DIRECTOR OF TRANSPORTATION) P athologist Signature Magnesium, S 1.7 1.7 - 2.3 [facility] MG/DL LABORATORIES - [facility] Specimen Anatomical Collection Method Collection Time Receive d Time (Source) Location / / Volume Laterality 06/26/2013 5:21 AM 4 5:21 DIRECTOR OF TRANSPORTATION AM DIRECTOR OF TRANSPORTATION Tracy Marie M.D. LAB BLOOD ADD-ON Performing Organization Address City/[facility]/ZIP Code Phon e Number [facility] - [address] PT (Prothrombin Time) with INR (06/26/2013 5:21 AM DIRECTOR OF TRANSPORTATION) [facility] gist Method Time Signature Prothrombin 12.0 9.5 - 13.8 [facility] Time, P SEC LABORATORIES - [facility] INR 1.0 0.8 - 1.2 [facility] LABORATORIES - [facility] Specimen Anatomical Collection Method Collection Time Receive d Time (Source) Location / / Volume Laterality 06/26/2013 5:21 AM 4 5:21 DIRECTOR OF TRANSPORTATION AM DIRECTOR OF TRANSPORTATION Tracy Marie M.D. LAB BLOOD ADD-ON Performing Organization Address City/[facility]/ZIP Code Phon e Number [facility] - [address] [address] [facility] (ABNORMAL) Electrolyte (Chem 4) Panel (06/26/2013 5:21 AM DIRECTOR OF TRANSPORTATION) [facility] Method Time Signature Sodium, S 134 (L) 135 - 145 [facility] MMOL/L LABORATORIES [facility] Potassium, S 5.3 (H) 3.6 - 5.2 [facility] MMOL/L LABORATORIES - [facility] Creatinine 1.4 (H) 0.8 - 1.3 [facility] MG/DL LABORATORIES [facility] eGFR 52 (L) >60 [facility] Non-Black/Afric ML/MIN/BS LABORATORIES - an Portuguese A [facility] eGFR-Black/Afri >60 >60 [facility] can Portuguese ML/MIN/BS LABORATORIES - A [facility] BUN (Blood Urea 24 8 - 24 [facility] Nitrogen), S MG/DL LAB[facility]ATORIES - [facility] Anion Gap 9 7 - 15 [facility]ATORIES - [facility] Glucose, S 209 (H) 70 - 140 [facility] MG/DL LAB[facility]ATORIES - [facility] Chloride, S 102 100 - 108 [facility] MMOL/L LABORATORIES - [facility] HX Bicarbonate, 23 22 - 29 [facility] P/S MMOL/L LAB[facility]ATORIES - [facility] Specimen Anatomical Collection Method Collection Time Receive d Time (Source) Location / / Volume Laterality 06/26/2013 5:21 AM 4 5:21 DIRECTOR OF TRANSPORTATION AM DIRECTOR OF TRANSPORTATION Tracy Marie M.D. LAB BLOOD ADD-ON Performing Organization Address City/[facility] Code Phon e Number [facility] - [address] [address] [facility] Glucose, POCT (06/25/2013 9:43 PM DIRECTOR OF TRANSPORTATION) Patholo gist Method Time Signature Glucose, 78 70 - 140 [facility] POCT, B MG/DL [facility]ATORIES - [facility] Sample Site, Capillary [facility] Blood Gas, LABORATORIES - POCT [facility] Last Intake 3-4 hours [facility] LABORATORIES - [facility] Specimen Anatomical Collection Method Collection Time Receive d Time (Source) Location / / Volume Laterality 06/25/2013 9:43 PM 4 9:43 DIRECTOR OF TRANSPORTATION PM DIRECTOR OF TRANSPORTATION Historical Provider LAB POCT ORDERABLES-MANUAL Performing Organization Address City/[facility] Code Phon e Number [facility] - [address] [place] [address] 05 [facility] Potassium (06/25/2013 7:45 PM DIRECTOR OF TRANSPORTATION) P athologist Signature Potassium, S 5.2 3.6 - 5.2 [facility] MMOL/L LABORATORIES - [facility] Specimen Anatomical Collection Method Collection Time Receive d Time (Source) Location / / Volume Laterality 06/25/2013 7:45 PM 4 7:45 DIRECTOR OF TRANSPORTATION PM DIRECTOR OF TRANSPORTATION Historical Provider LAB BLOOD ADD-ON Performing Organization Address City/[facility]/ZIP Code Phon e Number [facility] - [address] [place] [address] [facility] (ABNORMAL) Glucose, POCT (06/25/2013 5:53 PM DIRECTOR OF TRANSPORTATION) [facility] Method Time Signature Last Intake 3-4 hours [facility] Glucose, 291 (H) 70 - 140 [facility] POCT, B MG/DL LAB[facility]ATORIES - [facility] Sample Site, Capillary [facility] Blood Gas, LABORATORIES - POCT [facility] Specimen Anatomical Collection Method Collection Time Receive d Time (Source) Location / / Volume Laterality 06/25/2013 5:53 PM 4 5:53 DIRECTOR OF TRANSPORTATION PM DIRECTOR OF TRANSPORTATION Historical Provider LAB POCT ORDERABLES-MANUAL Performing Organization Address City/[facility]/ZIP Code Phon e Number [facility] - [address] [place], [place] [address] [facility] (ABNORMAL) Glucose, POCT (06/25/2013 1:55 PM DIRECTOR OF TRANSPORTATION) [facility] Method Time Signature Glucose, 168 (H) 70 - 140 [facility] POCT, B MG/DL LAB[facility]ATORIES - [facility] Sample Site, Capillary [facility] Blood Gas, LABORATORIES - POCT [facility] Last Intake 3-4 hours [facility] Specimen Anatomical Collection Method Collection Time Receive d Time (Source) Location / / Volume Laterality 06/25/2013 1:55 PM 4 1:55 DIRECTOR OF TRANSPORTATION PM DIRECTOR OF TRANSPORTATION Historical Provider LAB POCT ORDERABLES-MANUAL Performing Organization Address City/[facility]/ZIP Code Phon e Number [facility] - [address] [place], [place] [address] [facility] (ABNORMAL) Glucose, POCT (06/25/2013 8:25 AM DIRECTOR OF TRANSPORTATION) [facility] Method Time Signature Glucose, 148 (H) 70 - 140 [facility] POCT, B MG/DL LAB[facility]ATORIES - [facility] Sample Site, Capillary [facility] Blood Gas, LABORATORIES - POCT [facility] Last Intake 3-4 hours [facility] Specimen Anatomical Collection Method Collection Time Receive d Time (Source) Location / / Volume Laterality 06/25/2013 8:25 AM 4 8:25 DIRECTOR OF TRANSPORTATION AM DIRECTOR OF TRANSPORTATION Historical Provider LAB POCT ORDERABLES-MANUAL Performing Organization Address City/[facility]/ZIP [facility] Phon e Number [facility] - [address] [place], [place] [address] [facility] (ABNORMAL) Glucose, POCT (06/25/2013 5:26 AM DIRECTOR OF TRANSPORTATION) [facility] Method Time Signature Glucose, POCT, 210 (H) 70 - 140 [facility] B MG/DL [facility]IES - [facility] Last Intake 2-3 hours [facility] Specimen Anatomical Collection Method Collection Time Receive d Time (Source) Location / / Volume Laterality 06/25/2013 5:26 AM 4 5:26 DIRECTOR OF TRANSPORTATION AM DIRECTOR OF TRANSPORTATION Historical Provider LAB POCT ORDERABLES-MANUAL Performing Organization Address City/[facility] Phon e Number [facility] - [address] [address] 05 [facility] ALT (Alanine Aminotransferase) (06/25/2013 5:16 AM DIRECTOR OF TRANSPORTATION) [facility] Signature Alanine 45 7 - 55 [facility] Aminotransferase U/L LABORATORIES - (ALT), S [facility] Specimen Anatomical Collection Method Collection Time Receive d Time (Source) Location / / Volume Laterality 06/25/2013 5:16 AM 4 5:16 DIRECTOR OF TRANSPORTATION AM DIRECTOR OF TRANSPORTATION Radha Block APRN, C.N.P., M.S.N., R.N. LAB BLOOD ADD-ON Performing Organization Address City/State/ZIP Code Phon e Number [facility]IES - [address] [address] 05 [facility] (ABNORMAL) Alkaline Phosphatase (06/25/2013 5:16 AM DIRECTOR OF TRANSPORTATION) [facility] Signature Alkaline 127 (H) 45 - 115 [facility] Phosphatase, S U/L LAB[facility]ATORIES - [facility] Specimen Anatomical Collection Method Collection Time Receive d Time (Source) Location / / Volume Laterality 06/25/2013 5:16 AM 4 5:16 DIRECTOR OF TRANSPORTATION AM DIRECTOR OF TRANSPORTATION Radha Block APRN, C.N.P., M.S.N., R.N. LAB BLOOD ADD-ON Performing Organization Address City/[facility] Phon e Number [facility]IES - [address] [address] 05 [facility] (ABNORMAL) CBC with Differential - No Alerts (06/25/2013 5:16 AM DIRECTOR OF TRANSPORTATION) [facility] Method [place] Signature Erythrocytes 2.82 (L) 4.32 - [facility] 5.72 LABORATORIES - X10(12)/L [facility] MCV 92.9 81.2 - [facility] 95.1 [place] LABORATORIES - [facility] RBC Distrib 17.4 (H) 11.8 - [facility] Width 15.6 % LABORATORIES - [facility] Platelet Count 207 150 - 450 [facility] X10(9)/L LABORATORIES [facility] Lymphocytes 0.89 (L) 0.90 - [facility] 2.90 LABORATORIES - X10(9)/L [facility] Monocytes 0.56 0.30 - [facility] 0.90 LABORATORIES - X10(9)/L [facility] Hemoglobin 8.8 (L) 13.5 - [facility] 17.5 G/DL LAB[facility]ATORIES - [facility] Hematocrit 26.2 (L) 38.8 - [facility] 50.0 % [facility] Leukocytes 7.4 3.5 - [facility] 10.5 LABORATORIES - X10(9)/L [facility] Neutrophils 5.93 1.70 - [facility] 7.00 LABORATORIES - X10(9)/L [facility] Eosinophils 0.05 0.05 - [facility] 0.50 LABORATORIES - X10(9)/L [facility] Basophils 0.01 0.00 - [facility] 0.30 LABORATORIES - X10(9)/L [facility] Specimen Anatomical Collection Method Collection Time Receive d Time (Source) Location / / Volume Laterality 06/25/2013 5:16 AM 4 5:16 DIRECTOR OF TRANSPORTATION AM DIRECTOR OF TRANSPORTATION Radha Block APRN, Arley.N.P., M.S.N., R.N. LAB BLOOD NON ADD-ON Performing Organization Address City/State/ZIP Code Phon e Number [facility] LAB[facility]IES - [address] [place], [place] [address] [facility] PT (Prothrombin Time) with INR (06/25/2013 5:16 AM DIRECTOR OF TRANSPORTATION) [facility] gist Method Time Signature Prothrombin 11.6 9.5 - 13.8 [facility] Time, P SEC LABORATOR[facility] INR 1.0 0.8 - 1.2 [facility] LABORATORIES - [facility] Specimen Anatomical Collection Method Collection Time Receive d Time (Source) Location / / Volume Laterality 06/25/2013 5:16 AM 4 5:16 DIRECTOR OF TRANSPORTATION AM DIRECTOR OF TRANSPORTATION Radha Block APRN, Arley.N.P., M.S.N., R.N. LAB BLOOD ADD-ON Performing Organization Address City/[facility]/ZIP Code Phon e Number [facility]IES - [address] [address] 05 [facility] Magnesium (06/25/2013 5:16 AM DIRECTOR OF TRANSPORTATION) athologist Signature Magnesium, S 1.8 1.7 - 2.3 [facility] MG/DL LABORATORIES - [facility] Specimen Anatomical Collection Method Collection Time Receive d Time (Source) Location / / Volume Laterality 06/25/2013 5:16 AM 4 5:16 DIRECTOR OF TRANSPORTATION AM DIRECTOR OF TRANSPORTATION Radha Block APRN, C.N.P., M.S.N., R.N. LAB BLOOD ADD-ON Performing Organization Address City/[facility]/ZIP Code Phon e Number [facility]IES - [address] [address] 05 [facility] AST (Aspartate Aminotransferase) (06/25/2013 5:16 AM DIRECTOR OF TRANSPORTATION) athologist Signature AST, Total, S 13 8 - 48 U/L [facility] Specimen Anatomical Collection Method Collection Time Receive d Time (Source) Location / / Volume Laterality 06/25/2013 5:16 AM 4 5:16 DIRECTOR OF TRANSPORTATION AM DIRECTOR OF TRANSPORTATION Radha Block APRN, C.N.P., M.S.N., R.N. LAB BLOOD ADD-ON Performing Organization Address City/[facility]/ZIP Code Phon e Number [facility]ORATORIES - [address] [address] 05 [facility] (ABNORMAL) Electrolyte (Chem 4) Panel (06/25/2013 5:16 AM DIRECTOR OF TRANSPORTATION) Patholo gist Method Time Signature Chloride, S 103 100 - 108 [facility] MMOL/L LABORATORIES - [facility] HX Bicarbonate, 23 22 - 29 [facility] P/S MMOL/L LABORATORIES - [facility] Creatinine 1.3 0.8 - 1.3 [facility] MG/DL LABORATORIES - [facility] eGFR 57 (L) >60 [facility] Non-Black/Afric ML/MIN/BS LABORATORIES - an Portuguese A [facility] eGFR-Black/Afri >60 >60 [facility] can Portuguese ML/MIN/BS LABORATORIES - [facility] BUN (Blood Urea 23 8 - 24 [facility] Nitrogen), S MG/DL LAB[facility]ATORIES - [facility] Anion Gap 8 7 - 15 [facility] LABORATORIES - [facility] Glucose, S 239 (H) 70 - 140 [facility] MG/DL LAB[facility]ATORIES - [facility] Sodium, S 134 (L) 135 - 145 [facility] MMOL/L LABORATORIES - [facility] Potassium, S 5.4 (H) 3.6 - 5.2 [facility] MMOL/L LABORATORIES - [facility] Specimen Anatomical Collection Method Collection Time Receive d Time (Source) Location / / Volume Laterality 06/25/2013 5:16 AM 4 5:16 DIRECTOR OF TRANSPORTATION AM DIRECTOR OF TRANSPORTATION Radha Block APRN, C.N.P., M.S.N., R.N. LAB BLOOD ADD-ON Performing Organization Address City/[facility] Phon e Number [facility] LABORATORIES - [address] [address] [facility] (ABNORMAL) Albumin (06/25/2013 5:16 AM DIRECTOR OF TRANSPORTATION) P athologist Signature Albumin, S 3.1 (L) 3.5 - 5.0 [facility] G/DL LABORATORIES - [facility] Specimen Anatomical Collection Method Collection Time Receive d Time (Source) Location / / Volume Laterality 06/25/2013 5:16 AM 4 5:16 DIRECTOR OF TRANSPORTATION AM DIRECTOR OF TRANSPORTATION Arley Ho APRN.N.Evan., M.S.N., R.N. LAB BLOOD ADD-ON Performing Organization Address City/[facility] Phon e Number [facility] LABORATORIES - [address] [place] [address] 05 [facility] (ABNORMAL) Bilirubin (06/25/2013 5:16 AM DIRECTOR OF TRANSPORTATION) Patholo gist Method Time Signature Bilirubin, 2.1 (H) 0.1 - 1.0 [facility] Total, S MG/DL LAB[facility]ATORIES - [facility] Bilirubin, 1.3 (H) 0.0 - 0.3 [facility] Direct, S MG/DL LABORATORIES - [facility] Specimen Anatomical Collection Method Collection Time Receive d Time (Source) Location / / Volume Laterality 06/25/2013 5:16 AM 4 5:16 DIRECTOR OF TRANSPORTATION AM DIRECTOR OF TRANSPORTATION Arley Ho APRN.Ana.Evan., M.S.N., R.N. LAB BLOOD ADD-ON Performing Organization Address City/[facility]/ZIP Code Phon e Number [facility] LABORATORIES - [address] [place] [address] 05 [facility] (ABNORMAL) Calcium, Total (06/25/2013 5:16 AM DIRECTOR OF TRANSPORTATION) [facility] Method Time Signature Calcium, 7.8 (L) 8.9 - 10.1 [facility] Total, S MG/DL LABORATORIES - [facility] Specimen Anatomical Collection Method Collection Time Receive d Time (Source) Location / / Volume Laterality 06/25/2013 5:16 AM 4 5:16 DIRECTOR OF TRANSPORTATION AM DIRECTOR OF TRANSPORTATION Radha Block APRN, C.N.P., M.S.N., R.N. LAB BLOOD ADD-ON Performing Organization Address City/[facility] Code Phon e Number [facility] LABORATORIES - [address] [place], [place] [address] [facility] (ABNORMAL) Tacrolimus Level (06/25/2013 5:16 AM DIRECTOR OF TRANSPORTATION) [facility] Method [place] Signature Tacrolimus, B 4.3 (L) 5.0-15.0 [facility] (Trough) LABORATORIES - NG/ML [facility] Tacrolimus . [facility] Blood Date of LABORATORIES - Last Dose [facility] Comment: Not Specified Tacrolimus Time of Last Dose . M [facility] Comment: Not Specified Tacrolimus Blood Dose, mg . MG [facility] Comment: Not Specified Specimen Anatomical Collection Method Collection Time Receive d Time (Source) Location / / Volume Laterality 06/25/2013 5:16 AM 4 5:16 DIRECTOR OF TRANSPORTATION AM DIRECTOR OF TRANSPORTATION Radha Block APRN, C.N.P., M.S.N., R.N. LAB BLOOD NON ADD-ON Performing Organization Address City/[facility]/ZIP Code Phon e Number [facility] LABORATORIES - [address] [address] 05 [facility] (ABNORMAL) Glucose, POCT (06/24/2013 10:03 PM DIRECTOR OF TRANSPORTATION) [facility] Method Time Signature Glucose, POCT, 239 (H) 70 - 140 [facility] B MG/DL [facility] Last Intake 1-2 hours [facility] Specimen Anatomical Collection Method Collection Time Receive d Time (Source) Location / / Volume Laterality 06/24/2013 10:03 06/24/2013 PM DIRECTOR OF TRANSPORTATION 10:03 PM DIRECTOR OF TRANSPORTATION Historical Provider LAB POCT ORDERABLES-MANUAL Performing Organization Address City/[facility]/ZIP Code Phon e Number [facility] LABORATORIES - [address] [place], [place] [address] [facility] (ABNORMAL) Glucose, POCT (06/24/2013 6:21 PM DIRECTOR OF TRANSPORTATION) [facility] gist Method Time Signature Last Intake 1-2 hours [facility] - [facility] Glucose, 298 (H) 70 - 140 [facility] POCT, B MG/DL LABORATORIES - [facility] Sample Site, Capillary [facility] Blood Gas, LABORATORIES - POCT [facility] Specimen Anatomical Collection Method Collection Time Receive d Time (Source) Location / / Volume Laterality 06/24/2013 6:21 PM 4 6:21 DIRECTOR OF TRANSPORTATION PM DIRECTOR OF TRANSPORTATION Historical Provider LAB POCT ORDERABLES-MANUAL Performing Organization Address City/[facility]/ZIP [facility] Phon e Number [facility]IES - [address] [place], [place] [address] [facility] Glucose, POCT (06/24/2013 11:07 AM DIRECTOR OF TRANSPORTATION) [facility] gist Method Time Signature Last Intake 3-4 hours [facility] - [facility] Glucose, 137 70 - 140 [facility] POCT, B MG/DL LABORATORIES - [facility] Sample Site, Capillary [facility] Blood Gas, LABORATORIES - POCT [facility] Specimen Anatomical Collection Method Collection Time Receive d Time (Source) Location / / Volume Laterality 06/24/2013 11:07 06/24/2013 AM DIRECTOR OF TRANSPORTATION 11:07 AM DIRECTOR OF TRANSPORTATION Historical Provider LAB POCT ORDERABLES-MANUAL Performing Organization Address City/State/ZIP [facility] Phon e Number [facility]IES - [address] [place], [place] [address] [facility] (ABNORMAL) Glucose, POCT (06/24/2013 6:30 AM DIRECTOR OF TRANSPORTATION) [facility] gist Method Time Signature Glucose, 229 (H) 70 - 140 [facility] POCT, B MG/DL LABORATORIES - [facility] Sample Site, Capillary [facility] Blood Gas, LABORATORIES - POCT [facility] Specimen Anatomical Collection Method Collection Time Receive d Time (Source) Location / / Volume Laterality 06/24/2013 6:30 AM 4 6:30 DIRECTOR OF TRANSPORTATION AM DIRECTOR OF TRANSPORTATION Historical Provider LAB POCT ORDERABLES-MANUAL Performing Organization Address City/State/ZIP Code Phon e Number [facility] LABORATORIES - [address] [place], [place] [address] [facility] (ABNORMAL) Glucose, POCT (06/23/2013 10:12 PM DIRECTOR OF TRANSPORTATION) [facility] gist Method Time Signature Last Intake <1 hour [facility] - [facility] Glucose, 256 (H) 70 - 140 [facility] POCT, B MG/DL LAB[facility]ATORIES - [facility] Sample Site, Capillary [facility] Blood Gas, LABORATORIES - POCT [facility] Specimen Anatomical Collection Method Collection Time Receive d Time (Source) Location / / Volume Laterality 06/23/2013 10:12 06/23/2013 PM DIRECTOR OF TRANSPORTATION 10:12 PM DIRECTOR OF TRANSPORTATION Historical Provider LAB POCT ORDERABLES-MANUAL Performing Organization Address City/[facility]/ZIP Code Phon e Number [facility]IES - [address] [place], [place] [address] [facility] (ABNORMAL) Glucose, POCT (06/23/2013 5:11 PM DIRECTOR OF TRANSPORTATION) [facility] gist Method Time Signature Glucose, 361 (H) 70 - 140 [facility] POCT, B MG/DL LAB[facility]ATORIES - [facility] Sample Site, Capillary [facility] Blood Gas, LABORATORIES - POCT [facility] Last Intake 1-2 hours [facility] - [facility] Specimen Anatomical Collection Method Collection Time Receive d Time (Source) Location / / Volume Laterality 06/23/2013 5:11 PM 4 5:11 DIRECTOR OF TRANSPORTATION PM DIRECTOR OF TRANSPORTATION Historical Provider LAB POCT ORDERABLES-MANUAL Performing Organization Address City/State/ZIP Code Phon e Number [facility]IES - [address] [place], [place] [address] [facility] Glucose, POCT (06/23/2013 11:31 AM DIRECTOR OF TRANSPORTATION) [facility] gist Method Time Signature Last Intake 2-3 hours [facility] - [facility] Glucose, 126 70 - 140 [facility] POCT, B MG/DL LAB[facility]ATORIES - [facility] Sample Site, Capillary [facility] Blood Gas, LABORATORIES - POCT [facility] Specimen Anatomical Collection Method Collection Time Receive d Time (Source) Location / / Volume Laterality 06/23/2013 11:31 06/23/2013 AM DIRECTOR OF TRANSPORTATION 11:31 AM DIRECTOR OF TRANSPORTATION Historical Provider LAB POCT ORDERABLES-MANUAL Performing Organization Address City/[facility]/ZIP Code Phon e Number [facility]IES - [address] [place], [place] [address] [facility] (ABNORMAL) Glucose, POCT (06/23/2013 6:10 AM DIRECTOR OF TRANSPORTATION) [facility] Method Time Signature Glucose, 250 (H) 70 - 140 [facility] POCT, B MG/DL LABORATORIES - [facility] Sample Site, Capillary [facility] Blood Gas, LABORATORIES - POCT [facility] Last Intake 2-3 hours [facility] - [facility] Specimen Anatomical Collection Method Collection Time Receive d Time (Source) Location / / Volume Laterality 06/23/2013 6:10 AM 6:10 DIRECTOR OF TRANSPORTATION AM DIRECTOR OF TRANSPORTATION Historical Provider LAB POCT ORDERABLES-MANUAL Performing Organization Address City/[facility] Phon e Number [facility] LABORATORIES - [address] [place] [address] [facility] (ABNORMAL) Bilirubin, Total (06/23/2013 5:24 AM DIRECTOR OF TRANSPORTATION) [facility] Method Time Signature Bilirubin, 2.3 (H) 0.1 - 1.0 [facility] Total, S MG/DL LAB[facility]ATORIES - [facility] Specimen Anatomical Collection Method Collection Time Receive d Time (Source) Location / / Volume Laterality 06/23/2013 5:24 AM 4 5:24 DIRECTOR OF TRANSPORTATION AM DIRECTOR OF TRANSPORTATION Joselyn Fay M.D. LAB BLOOD ADD-ON Performing Organization Address City/[facility]/ZIP Code Phon e Number [facility]IES - [address] [place] [address] [facility] (ABNORMAL) Bilirubin, Direct (06/23/2013 5:24 AM DIRECTOR OF TRANSPORTATION) [facility] Method Time Signature Bilirubin, 1.4 (H) 0.0 - 0.3 [facility] Direct, S MG/DL [facility]IES - [facility] Specimen Anatomical Collection Method Collection Time Receive d Time (Source) Location / / Volume Laterality 06/23/2013 5:24 AM 4 5:24 DIRECTOR OF TRANSPORTATION AM DIRECTOR OF TRANSPORTATION Joselyn Fay M.D. LAB BLOOD ADD-ON Performing Organization Address City/[facility]/ZIP Code Phon e Number [facility] LABOR[facility]IES - [address] [place] [address] [facility] PT (Prothrombin Time) with INR (06/23/2013 5:24 AM DIRECTOR OF TRANSPORTATION) [facility] Method Time Signature Prothrombin 12.8 9.5 - 13.8 [facility] Time, P SEC LAB[facility]ATORIES - [facility] INR 1.1 0.8 - 1.2 [facility]ATORIES - [facility] Specimen Anatomical Collection Method Collection Time Receive d Time (Source) Location / / Volume Laterality 06/23/2013 5:24 AM 4 5:24 DIRECTOR OF TRANSPORTATION AM DIRECTOR OF TRANSPORTATION Joselyn Fay M.D. LAB BLOOD ADD-ON Performing Organization Address City/[facility]/ZIP Code Phon e Number [facility] LAB[facility]IES - [address] [place] [address] [facility] (ABNORMAL) ALT (Alanine Aminotransferase) (06/23/2013 5:24 AM DIRECTOR OF TRANSPORTATION) [facility] Method Time Signature Alanine 64 (H) 7 - 55 [facility] Aminotransferase U/L LABORATORIES - (ALT), S [facility] Specimen Anatomical Collection Method Collection Time Receive d Time (Source) Location / / Volume Laterality 06/23/2013 5:24 AM 4 5:24 DIRECTOR OF TRANSPORTATION AM DIRECTOR OF TRANSPORTATION Joselyn Fay M.D. LAB BLOOD ADD-ON Performing Organization Address City/State/ZIP Code Phon e Number [facility] LAB[facility]IES - [address] [place] [address] [facility] (ABNORMAL) CBC without Differential (06/23/2013 5:24 AM DIRECTOR OF TRANSPORTATION) [facility] Method Time Signature Erythrocytes 2.79 (L) 4.32 - [facility] 5.72 LABORATORIES - X10(12)/L [facility] MCV 90.0 81.2 - [facility] 95.1 FL LABORATORIES - [facility] Leukocytes 6.5 3.5 - [facility] 10.5 LABORATORIES - X10(9)/L [facility] Hemoglobin 8.7 (L) 13.5 - [facility] 17.5 G/DL LABORATORIES - [facility] Hematocrit 25.1 (L) 38.8 - [facility] 50.0 % LABORATORIES - [facility] RBC Distrib 17.0 (H) 11.8 - [facility] Width 15.6 % LABORATORIES - [facility] Platelet Count 178 150 - 450 [facility] X10(9)/L [facility] Specimen Anatomical Collection Method Collection Time Receive d Time (Source) Location / / Volume Laterality 06/23/2013 5:24 AM 4 5:24 DIRECTOR OF TRANSPORTATION AM DIRECTOR OF TRANSPORTATION Joselyn Fay M.D. LAB BLOOD ADD-ON Performing Organization Address City/State/ZIP Code Phon e Number [facility] LABORATORIES - [address] [place] [address] [facility] Phosphorus Inorganic (06/23/2013 5:24 AM DIRECTOR OF TRANSPORTATION) Analysis Performed At Patho logist Time Signature Phosphorus 3.5 2.5 - 4.5 [facility] (Inorganic), S MG/DL [facility] Specimen Anatomical Collection Method Collection Time Receive d Time (Source) Location / / Volume Laterality 06/23/2013 5:24 AM 4 5:24 DIRECTOR OF TRANSPORTATION AM DIRECTOR OF TRANSPORTATION Joselyn Fay M.D. LAB BLOOD ADD-ON Performing Organization Address City/[facility]/ZIP Code Phon e Number [facility] LAB[facility]ATORIES - [address] [place] [address] [facility] (ABNORMAL) Albumin (06/23/2013 5:24 AM DIRECTOR OF TRANSPORTATION) P athologist Signature Albumin, S 2.8 (L) 3.5 - 5.0 [facility] G/DL [facility] Specimen Anatomical Collection Method Collection Time Receive d Time (Source) Location / / Volume Laterality 06/23/2013 5:24 AM 4 5:24 DIRECTOR OF TRANSPORTATION AM DIRECTOR OF TRANSPORTATION Joselyn Fay M.D. LAB BLOOD ADD-ON Performing Organization Address City/[facility]/ZIP Code Phon e Number [facility] LAB[facility]IES - [address] [place] [address] [facility] AST (Aspartate Aminotransferase) (06/23/2013 5:24 AM DIRECTOR OF TRANSPORTATION) P athologist Signature AST, Total, S 27 8 - 48 U/L [facility] Specimen Anatomical Collection Method Collection Time Receive d Time (Source) Location / / Volume Laterality 06/23/2013 5:24 AM 4 5:24 DIRECTOR OF TRANSPORTATION AM DIRECTOR OF TRANSPORTATION Joselyn Fay M.D. LAB BLOOD ADD-ON Performing Organization Address City/State/ZIP Code Phon e Number [facility]IES - [address] [place] [address] [facility] (ABNORMAL) Electrolyte (Chem 4) Panel (06/23/2013 5:24 AM DIRECTOR OF TRANSPORTATION) Patholo gist Method Time Signature Sodium, S 136 135 - 145 [facility] MMOL/L LABORATORIES - [facility] Potassium, S 4.4 3.6 - 5.2 [facility] MMOL/L [facility]IES - [facility] Chloride, S 103 100 - 108 [facility] MMOL/L LAB[facility]IES - [facility] HX Bicarbonate, 23 22 - 29 [facility] P/S MMOL/L LAB[facility]ATORIES - [facility] Creatinine 1.3 0.8 - 1.3 [facility] MG/DL LAB[facility]ATORIES - [facility] eGFR 57 (L) >60 [facility] Non-Black/Afric ML/MIN/BS LABORATORIES - an Portuguese A [facility] eGFR-Black/Afri >60 >60 [facility] can Portuguese ML/MIN/BS LABORATORIES - [facility] BUN (Blood Urea 20 8 - 24 [facility] Nitrogen), S MG/DL LAB[facility]IES - [facility] Anion Gap 10 7 - 15 [facility] - [facility] Glucose, S 266 (H) 70 - 140 [facility] MG/DL LAB[facility]IES - [facility] Specimen Anatomical Collection Method Collection Time Receive d Time (Source) Location / / Volume Laterality 06/23/2013 5:24 AM 4 5:24 DIRECTOR OF TRANSPORTATION AM DIRECTOR OF TRANSPORTATION Joselyn Fay M.D. LAB BLOOD ADD-ON Performing Organization Address City/State/ZIP Code Phon e Number [facility] LABORATORIES - [address] [place] [address] [facility] Tacrolimus Level (06/23/2013 5:24 AM DIRECTOR OF TRANSPORTATION) Analysis Performed At [facility] logist Time Signature Tacrolimus, B 8.3 5.0-15.0 [facility] (Trough) LABORATORIES - NG/ML [facility] Tacrolimus . [facility] Blood Date of LABORATORIES - Last Dose [facility] Comment: Not Specified Tacrolimus Time of Last Dose . M [facility]IES - [facility] Comment: Not Specified Tacrolimus Blood Dose, mg . MG [facility]ATORIES - [facility] Comment: Not Specified Specimen Anatomical Collection Method Collection Time Receive d Time (Source) Location / / Volume Laterality 06/23/2013 5:24 AM 4 5:24 DIRECTOR OF TRANSPORTATION AM DIRECTOR OF TRANSPORTATION Joselyn Fay M.D. LAB BLOOD NON ADD-ON Performing Organization Address City/State/ZIP Code Phon e Number [facility] LABORATORIES - [address] [place], [place] [address] [facility] Magnesium (06/23/2013 5:24 AM DIRECTOR OF TRANSPORTATION) P athologist Signature Magnesium, S 1.8 1.7 - 2.3 [facility] MG/DL LAB[facility]ATORIES - [facility] Specimen Anatomical Collection Method Collection Time Receive d Time (Source) Location / / Volume Laterality 06/23/2013 5:24 AM 4 5:24 DIRECTOR OF TRANSPORTATION AM DIRECTOR OF TRANSPORTATION Joselyn Fay M.D. LAB BLOOD ADD-ON Performing Organization Address City/State/ZIP Code Phon e Number [facility] LABORATORIES - [address] [place], [place] [address] [facility] (ABNORMAL) Alkaline Phosphatase (06/23/2013 5:24 AM DIRECTOR OF TRANSPORTATION) [facility] gist Method Time Signature Alkaline 122 (H) 45 - 115 [facility] Phosphatase, S U/L LABORATORIES - [facility] Specimen Anatomical Collection Method Collection Time Receive d Time (Source) Location / / Volume Laterality 06/23/2013 5:24 AM 4 5:24 DIRECTOR OF TRANSPORTATION AM DIRECTOR OF TRANSPORTATION Joselyn Fay M.D. LAB BLOOD ADD-ON Performing Organization Address City/State/ZIP Code Phon e Number [facility] LABORATORIES - [address] [place] [address] [facility] (ABNORMAL) Glucose, POCT (06/23/2013 1:54 AM DIRECTOR OF TRANSPORTATION) [facility] gist Method Time Signature Glucose, POCT, 153 (H) 70 - 140 [facility] B MG/DL [facility] - [facility] Specimen Anatomical Collection Method Collection Time Receive d Time (Source) Location / / Volume Laterality 06/23/2013 1:54 AM 4 1:54 DIRECTOR OF TRANSPORTATION AM DIRECTOR OF TRANSPORTATION Historical Provider LAB POCT ORDERABLES-MANUAL Performing Organization Address City/State/ZIP Code Phon e Number [facility] LABORATORIES - [address] [place] [address] [facility] (ABNORMAL) Glucose, POCT (06/22/2013 10:32 PM DIRECTOR OF TRANSPORTATION) [facility] gist Method Time Signature Last Intake > 4 hours [facility] Glucose, 238 (H) 70 - 140 [facility] POCT, B MG/DL LABORATORIES - [facility] Sample Site, Capillary [facility] Blood Gas, LABORATORIES - POCT [facility] Specimen Anatomical Collection Method Collection Time Receive d Time (Source) Location / / Volume Laterality 06/22/2013 10:32 06/22/2013 PM DIRECTOR OF TRANSPORTATION 10:32 PM DIRECTOR OF TRANSPORTATION Historical Provider LAB POCT ORDERABLES-MANUAL Performing Organization Address City/State/ZIP Code Phon e Number [facility] - [address] [place], [place] [address] [facility] Microbiology Reports (06/22/2013 10:04 PM DIRECTOR OF TRANSPORTATION) Specimen Anatomical Collection Method Collection Time Receive d Time (Source) Location / / Volume Laterality 06/22/2013 10:04 06/22/2013 PM DIRECTOR OF TRANSPORTATION 10:04 PM DIRECTOR OF TRANSPORTATION Narrative [facility] - [facility] - 06/24/2013 5:56 AM DIRECTOR OF TRANSPORTATION 22-JUN-2013 URINE, MIDSTREAM, ?SoftOrd# [id number] ?(Ordered 22-JUN-2013; Collec onel 22-JUN-2013 22:04; Received 22-JUN-2013 23:11) ?[facility] ?BACTERIAL CULTURE, AEROBIC + GRI[place]ITH [place] ? (Reported 24-JUN-2013 05:56) FINAL ?No Growth after 1 day of inc ubation. Procedure Note 10/01/2017 22-JUN-2013 URINE, MIDSTREAM, SoftOrd# [id number] (Ordered 22-JUN-2013; Collected 2012 22:04; Received 22-JUN-2013 23:11) [facility] BACTERIAL CULTURE, AEROBIC + SUSC (Rep orted 24-JUN-2013 05:56) FINAL No Growth after 1 day of incubation. Joselyn L Sumeet M.D. LAB MICROBIOLOGY - GENERAL O RDERABLES Performing Organization Address City/[facility]/ZIP Code Phon e Number [facility] LABORATORIES - [address] [place] [address] [facility] Ketones, Qual, Urine (06/22/2013 10:04 PM DIRECTOR OF TRANSPORTATION) [facility] Method Time Signature HX Ketones, Negative Negative [facility] Ql. MG/DL [facility] Specimen Anatomical Collection Method Collection Time Receive d Time (Source) Location / / Volume Laterality 06/22/2013 10:04 06/22/2013 PM DIRECTOR OF TRANSPORTATION 10:04 PM DIRECTOR OF TRANSPORTATION Joselyn Fay M.D. LAB URINE ORDERABLES Performing Organization Address City/[facility]/ZIP Code Phon e Number [facility] LABORATORIES - [address] [place] [address] [facility] Microscopic Manual (06/22/2013 10:04 PM DIRECTOR OF TRANSPORTATION) athologist Signature Microscopy Normal [facility] WBC 1-3 1-3 [facility] (Males); LABORATORIES - 1-10 [facility] (Females) [place] /HPF Specimen Anatomical Collection Method Collection Time Receive d Time (Source) Location / / Volume Laterality 06/22/2013 10:04 06/22/2013 PM DIRECTOR OF TRANSPORTATION 10:04 PM DIRECTOR OF TRANSPORTATION Joselyn Fay M.D. LAB URINE ORDERABLES Performing Organization Address City/[facility] Phon e Number [facility] LABORATORIES - [address] [place] [address] [facility] (ABNORMAL) Urinalysis with Microscopic (06/22/2013 10:04 PM DIRECTOR OF TRANSPORTATION) [facility] Method Time Signature Appearance Normal Normal [facility] Glucose >750 (H) 0 - 15 MG/DL [facility] Osmolality, 24 390 150 - 1150 [facility] HR, U MOSM/KG [facility] pH, 24 HR, U 7.1 4.5 - 8.0 [facility] Protein/Osmola 0.92 (H) <0.12 RATIO [facility] lity [facility] Predicted 24 873 MG/24 H [facility] Hr Protein [facility] Predicted 277-2749 MG/24 H [facility] Range [facility] Hemoglobin, QL Negative Negative [facility] Source Midstream [facility] Protein, U 36 (H) 0 - 19 MG/DL [facility] Specimen Anatomical Collection Method Collection Time Receive d Time (Source) Location / / Volume Laterality 06/22/2013 10:04 06/22/2013 PM DIRECTOR OF TRANSPORTATION 10:04 PM DIRECTOR OF TRANSPORTATION Joselyn Fay M.D. LAB URINE ORDERABLES Performing Organization Address [facility] Phon e Number [facility] [address] [place] [address] [facility] Gram Stain, Urine (06/22/2013 10:04 PM DIRECTOR OF TRANSPORTATION) Patholo gist Method Time Signature Gram's Stain, Negative [facility] Screen, U [facility] Specimen Anatomical Collection Method Collection Time Receive d Time (Source) Location / / Volume Laterality 06/22/2013 10:04 06/22/2013 PM DIRECTOR OF TRANSPORTATION 10:04 PM DIRECTOR OF TRANSPORTATION Joselyn Fay M.D. LAB URINE ORDERABLES Performing Organization Address City/[facility] Code Phon e Number [facility] - [address] [place] [address] [facility] Microbiology Reports (06/22/2013 7:13 PM DIRECTOR OF TRANSPORTATION) Specimen Anatomical Collection Method Collection Time Receive d Time (Source) Location / / Volume Laterality 06/22/2013 7:13 PM 3 7:13 DIRECTOR OF TRANSPORTATION PM DIRECTOR OF TRANSPORTATION Narrative [facility] - 06/27/2013 11:30 PM DIRECTOR OF TRANSPORTATION 22-JUN-2013 BLOOD, ? SoftOrd# [id number] ?(Ordered 22-JUN-2013; Collec onel 22-JUN-2013 19:13; Received 22-JUN-2013 19:41) ?[facility] ?BACTERIA/MARRY CULTURE, BLOOD ? (Reported 27-JUN-2013 23:30) FINAL ?No growth after 5 days of in cubation. Procedure Note 10/01/2017 22-JUN-2013 BLOOD, SoftOrd# [id number] (Ordered 22-JUN-2013; Collected 2012 19:13; Received 22-JUN-2013 19:41) [facility] BACTERIA/MARRY CULTURE, BLOOD (Repor onel 27-JUN-2013 23:30) FINAL No growth after 5 days of incubation. Historical Provider LAB MICROBIOLOGY - GENERAL O RDERABLES Performing Organization Address City/State/ZIP Code Phon e Number [facility] - [address] [place], [place] [address] [facility] Microbiology Reports (06/22/2013 7:02 PM DIRECTOR OF TRANSPORTATION) Specimen Anatomical Collection Method Collection Time Receive d Time (Source) Location / / Volume Laterality 06/22/2013 7:02 PM 3 7:02 DIRECTOR OF TRANSPORTATION PM DIRECTOR OF TRANSPORTATION Narrative [facility] - [facility] - 08/22/2013 1:05 AM DIRECTOR OF TRANSPORTATION 22-JUN-2013 BLOOD, ? SoftOrd# [id number] ?(Ordered 22-JUN-2013; Collec onel 22-JUN-2013 19:02; Received 22-JUN-2013 19:38) ?[facility] ?Received Bactec aerobic and Bactec anaerobic bottles Received Isolator and two Bactec Myco F bottles ?FUNGAL/TB CULTURE, SPECIAL, BLO OD ? (Reported 22-AUG-2013 01:05) FINAL ?No Growth after 60 days of i ncubation. ?BACTERIA/MARRY CULTURE, BLOOD ? (Reported 27-JUN-2013 23:30) FINAL ?No growth after 5 days of in cubation. Procedure Note 10/01/2017 22-JUN-2013 BLOOD, SoftOrd# [id number] (Ordered 22-JUN-2013; Collected 2012 19:02; Received 22-JUN-2013 19:38) [facility] Received Bactec aerobic and Bactec anae robic bottles Received Isolator and two Bactec Myco F bottles FUNGAL/TB CULTURE, SPECIAL, BLOOD (Rep orted 22-AUG-2013 01:05) FINAL No Growth after 60 days of incubation. BACTERIA/MARRY CULTURE, BLOOD (Repor onel 27-JUN-2013 23:30) FINAL No growth after 5 days of incubation. Historical Provider LAB MICROBIOLOGY - GENERAL O RDERABLES Performing Organization Address City/[facility] Phon e Number [facility] - [address] [address] [facility] Ammonia Level, Plasma (06/22/2013 7:02 PM DIRECTOR OF TRANSPORTATION) P athologist Signature Ammonia, B <10 <50 MCG [facility] N/DL [facility] Specimen Anatomical Collection Method Collection Time Receive d Time (Source) Location / / Volume Laterality 06/22/2013 7:02 PM 3 7:02 DIRECTOR OF TRANSPORTATION PM DIRECTOR OF TRANSPORTATION Historical Provider LAB BLOOD NON ADD-ON Performing Organization Address [facility] Phon e Number [facility] - [address] [address] [facility] Hx general Pathology Report (06/14/2013 9:16 AM DIRECTOR OF TRANSPORTATION) Specimen Anatomical Collection Method Collection Time Receive d Time (Source) Location / / Volume Laterality 06/14/2013 9:16 AM 3 9:16 DIRECTOR OF TRANSPORTATION AM DIRECTOR OF TRANSPORTATION Narrative [facility] - 06/14/2013 9:16 AM DIRECTOR OF TRANSPORTATION ??06/12/2013 General Biopsy ? ([id number]) ? Requested By: He Grayson M.D. ?? [phone] ? Additional Physician: ??Liver Transplan t Service [id number] ? SLIDE DISPOSITION: ? DIAGNOSIS: ?? OLT [id number] A. ??Liver, donor, biopsy: ??Hepatic pa renchyma with focal centrilobular hepatocyte dropout consis tent with preservation/ reperfusion injury. ??No significant st eatosis or fibrosis. ??An iron stain is negative for hemosiderin depos ition. ? B. 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 ?? (See co mment.) ? Dictated by Lynn Christian, GI /Liver Pathology Fellow ? DIAGNOSIS COMMENT: Microscopically, hepatic parenchyma sofiya ws well-defined nodule formation consistent with established c irrhosis (trichrome stain). The hilar and portal branches of hepati c artery show remote thrombi with recanalization and features of obl iterative arteriopathy. ??The branches of interlobular bile ducts sofiya w fibro-obliterative foci and prominent periductal fibrosis (trichrom e stain). ??There is marked hepatocanalicular cholestasis with feat ures of cholate injury. ?? There are scattered foci of extravasate d bile with acute and chronic inflammatory response, foreign body typ e giant cell reaction and fibrosis. ??The portal tracts contain m ild lymphoplasmacytic inflammatory infiltrate, without interf farzana activity or ductular proliferation. ??Iron stain shows minim al (1+) hemosiderin deposition mainly within the hepatocytes. No defin ite histologic features of autoimmune hepatitis. ??Recipient gallb ladder is surgically absent. ? 06/28/2013 15:18 Interpreted by: Leonid Oneal [phone] Report electronically signed by Leonid Oneal Transcribed by: [email or web address] 06/28/2013 09:38:11 ? TISSUE DESCRIPTION: [id number] ?A. ??Received in formalin label ed with the patients name and UNOS number [id number] and labeled as li gerry is a 0.6 x 0.4 x 0.4 cm grady unremarkable wedge of liver tissue. ??The specimen is bisected and submitted entirely in cassette A1. ?? B. Received in formalin labeled with th e patient's name and clinic number [id number] labeled liver is a 9 30 gm 18.5 x 17.0 x 4.5 cm liver explant specimen. ??The liver is red- brown with focal adhesions, a soft texture and with a ma cronodular outer surface. ?? The cut surface is green and homogenous . ??the cut surface is photographed. Vice President Of Operations sections a re submitted as follows: B1, Margins. B2 - B4: Rt lobe liver B5 and B6: Lt lobe liver B7 thru B18, Hilum. ? Part A: ??Donor Liver Biopsy ?1 Donor Liver ?? Part B: ??Liver Explant ?1 Margins ?2 Rt Lobe ?3 Rt Lobe ?4 Rt Lobe ?5 Lt Lobe ?6 Lt Lobe ?7 Hilum ?8 Hilum ?9 Hilum ?10 Hilum ?11 Hilum ?12 Hilum ?13 Hilum ?14 Hilum ?15 Hilum ?16 Hilum ?17 Hilum ?18 Hilum ?? [facility] Pathologist ? Procedure Note 2017 06/12/2013 General Biopsy ([id number]) Requested By: He Grayson M.D. [phone] Additional Physician: Liver Transplant Service [id number] SLIDE DISPOSITION: DIAGNOSIS: OLT [id number] A. Liver, donor, biopsy: Hepatic parenc hyma with focal centrilobular hepatocyte dropout consis tent with preservation/ reperfusion injury. No significant stea tosis or fibrosis. An iron stain is negative for hemosiderin depos ition. B. 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 (See comme nt.) Dictated by Lynn Christian. SDemetrius, GI /Liver Pathology Fellow DIAGNOSIS COMMENT: Microscopically, hepatic parenchyma sofiya ws well-defined nodule formation consistent with established c irrhosis (trichrome stain). The hilar and portal branches of hepati c artery show remote thrombi with recanalization and features of obl iterative arteriopathy. The branches of interlobular bile ducts sofiya w fibro-obliterative foci and prominent periductal fibrosis (trichrom e stain). There is marked hepatocanalicular cholestasis with feat ures of cholate injury. There are scattered foci of extravasate d bile with acute and chronic inflammatory response, foreign body typ e giant cell reaction and fibrosis. The portal tracts contain mil d lymphoplasmacytic inflammatory infiltrate, without interf farzana activity or ductular proliferation. Iron stain shows minimal (1+) hemosiderin deposition mainly within the hepatocytes. No defin ite histologic features of autoimmune hepatitis. Recipient gallbla dder is surgically absent. 06/28/2013 15:18 Interpreted by: Leonid Oneal [phone] Report electronically signed by Leonid Oneal Transcribed by: [email or web address] 06/28/2013 09:38:11 TISSUE DESCRIPTION: [id number] A. Received in formalin labeled with th e patients name and UNOS number [id number] and labeled as li gerry is a 0.6 x 0.4 x 0.4 cm grady unremarkable wedge of liver tissue. The specimen is bisected and submitted entirely in cassette A1. B. Received in formalin labeled with th e patient's name and clinic number [id number] labeled liver is a 9 30 gm 18.5 x 17.0 x 4.5 cm liver explant specimen. The liver is re d- brown with focal adhesions, a soft texture and with a ma cronodular outer surface. The cut surface is green and homogenous . the cut surface is photographed. Vice President Of Operations sections a re submitted as follows: B1, Margins. B2 - B4: Rt lobe liver B5 and B6: Lt lobe liver B7 thru B18, Hilum. Part A: Donor Liver Biopsy 1 Donor Liver Part B: Liver Explant 1 Margins 2 Rt Lobe 3 Rt Lobe 4 Rt Lobe 5 Lt Lobe 6 Lt Lobe 7 Hilum 8 Hilum 9 Hilum 10 Hilum 11 Hilum 12 Hilum 13 Hilum 14 Hilum 15 Hilum 16 Hilum 17 Hilum 18 Hilum LIWG Pathologist He Grayson M.D. LAB PATHOLOGY/CYTOLOGY ORDER OSMEL Performing Organization Address City/State/ZIP Code Phon e Number [facility] - [address] [place] [address] [facility] documented in this encounter Visit Diagnoses Not on filedocumented in this encounter Additional Health Concerns Assessment Noted Time PHQ-9 Depression Total Score: 3 04/07/2013 9:47 AM CDT documented as of this encounter
--- OUTSIDE RECORDS SUMMARY | 2022-04-13 12:41 | XMS_ITS | Encounter Summary ---
:1955 Author Organization [facility] Address [address] [place] [address] Care Team Providers Name Role Phone Unavailable Primary Care Provider Unavailable Encounter Details Date Type Department Care Team Description 07/01/2013 Hospital Encounter HX RST PSYCH-R Guilherme Sommer M.D. 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 [address] [place] [phone] 04/25/2022 Office Visit Otorhinolaryngology Dex Matta, RAMONA, C.N.P., M.S.N. [address] [place] [phone] 05/08/2022 Appointment Laboratory Medicine Angélica Granger, P.A.-C. [address] [place] [phone] 05/08/2022 Clinical Admitting/Central Communication Scheduling 05/10/2022 Appointment Radiology Jeremie Rose M.D. [address] [place] [phone] 05/10/2022 Comprehensive Visit Orthopedic Surgery Warner Graves M.D. [address] [place] [phone] 05/22/2022 Appointment Laboratory Medicine Angélica Granger P.A.-C. [address] [place] [phone] 06/05/2022 Appointment Laboratory Medicine Angélica Granger P.A.-C. [address] [place] [phone] 06/19/2022 Appointment Laboratory Medicine Angélica Granger P.A.-C. [address] [place] [phone] 07/03/2022 Appointment Laboratory Medicine Angélica Granger P.A.-C. [address] [place] [phone] 07/17/2022 Appointment Laboratory Medicine Angélica Granger P.A.-C. [address] [place] [phone] 07/31/2022 Appointment Laboratory Medicine Angélica Granger P.A.-C. [address] [place] [phone] 08/14/2022 Appointment Laboratory Angélica Royal P.A.-C. [address] [place] [phone] 08/28/2022 Appointment Laboratory Medicine Angélica Granger P.A.-C. 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
--- OUTSIDE RECORDS SUMMARY | 2022-04-13 12:41 | XMS_ITS | Encounter Summary ---
:1955 Author Organization [facility] Address [address] [place] [address] Care Team Providers Name Role Phone Unavailable Primary Care Provider Unavailable Encounter Details Date Type Department Care Team Description 06/28/2013 Hospital Encounter HX RST PSYCHIATRY & PSI Fadumo Morgan M.D. 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 [address] [place] [phone] 05/08/2022 Appointment Laboratory Medicine Angélica Granger P.ADemetrius-CDemetrius [address] [place] [phone] 05/08/2022 Clinical Admitting/Central Communication Scheduling 05/10/2022 Appointment Radiology Jeremie Rose M.D. [address] [place] [phone] 05/10/2022 Comprehensive Visit Orthopedic Surgery Warner Graves M.D. [address] [place] [phone] 05/22/2022 Appointment Laboratory Medicine Angélica Granger P.A.-CDemetrius [address] [place] [phone] 06/05/2022 Appointment Laboratory Medicine Angélica Granger P.A.-C. [address] [place] [phone] 06/19/2022 Appointment Laboratory Medicine Angélica Granger P.A.-C. [address] [place] [phone] 07/03/2022 Appointment Laboratory Medicine Angélica Granger P.A.-C. [address] [place] [phone] 07/17/2022 Appointment Laboratory Medicine Angélica Granger P.A.-C. [address] [place] [phone] 07/31/2022 Appointment Laboratory Medicine Angélica Granger P.A.-C. [address] [place] [phone] 08/14/2022 Appointment Laboratory Medicine Angélica Granger P.A.-C. [address] [place] [phone] 08/28/2022 Appointment Laboratory Medicine Angélica Granger P.A.-C. [address] [place] [phone] documented as of this encounter Visit Diagnoses Not on filedocumented in this encounter Additional Health Concerns Assessment Noted Time PHQ-9 Depression Total Score: 3 04/07/2013 9:47 AM CDT documented as of this encounter
--- OUTSIDE RECORDS SUMMARY | 2022-04-13 12:43 | XMS_ITS | Encounter Summary ---
:1955 Author Organization [facility] Address [address] [place] [address] Care Team Providers Name Role Phone Unavailable Primary Care Provider Unavailable Encounter Details Date Type Department Care Team Description 06/10/2013 - Hospital Encounter HX RST UNIT 10-2 06/19/2013 TRANSPLANT Social History Tobacco Use Types Packs/Day Years [...] Date Recorded Male 05/16/2020 4:27 PM [employer]IATION SUPPORT EQUIPMENT REPAIRER documented as of this encounter Last Filed Vital Signs Vital Sign Reading Time Taken Comments Blood Pressure 153/76 06/19/2013 7:59 AM NIBP - Value from [facility] [[email or web address]. Pulse 48 06/19/2013 4:15 PM Value from [facility]. AVIATION SUPPORT EQUIPMENT REPAIRER Temperature - - Respiratory Rate 16 06/19/2013 4:13 PM Value from [facility]. AVIATION SUPPORT EQUIPMENT REPAIRER Oxygen Saturation - - Inhaled Oxygen - - Concentration Weight 81.4 kg (179 lb 7.3 06/19/2013 4:12 AM oz) [employer]IATION SUPPORT EQUIPMENT REPAIRER Height 177 cm (5' 9.69) 06/12/2013 6:35 PM Vital si gn result AVIATION SUPPORT EQUIPMENT REPAIRER from [facility]. Body Mass Index 25.98 06/12/2013 6:35 PM AVIATION SUPPORT EQUIPMENT REPAIRER documented in this encounter Medications at Time [...] Laboratory Medicine Angélica Granger P.A.-C. [address] [place] [phone] 04/25/2022 Office Visit Otorhinolaryngology Dex Matta APRN, C.N.P., M.S.N. [address] [place] [phone] 05/08/2022 Appointment Laboratory Medicine Angélica Granger P.A.-C. [address] [place] [phone] 05/08/2022 Clinical Admitting/Central Communication Scheduling 05/10/2022 Appointment Radiology Jeremie Rose M.D. [address] [place] [phone] 05/10/2022 Comprehensive Visit Orthopedic Surgery Warner Graves M.D. [address] [place] [phone] 05/22/2022 Appointment Laboratory Medicine Angélica Granger P.A.-C. [address] [place] [phone] 06/05/2022 Appointment Laboratory Medicine Angélica Granger P.A.-C. [address] [place] [phone] 06/19/2022 Appointment Laboratory Medicine Angélica Granger P.A.-C. [address] [place] [phone] 07/03/2022 Appointment Laboratory Medicine Angélica Granger P.A.-C. [address] [place] [phone] 07/17/2022 Appointment Laboratory Medicine Angélica Granger P.A.-C. [address] [place] [phone] 07/31/2022 Appointment Laboratory Medicine Angélica Granger P.A.-C. [address] [place] [phone] 08/14/2022 Appointment Laboratory Medicine Angélica Granger P.A.-C. [address] [place] [phone] 08/28/2022 Appointment Laboratory Medicine Emiliejeri Angélica Edmundo Stern [address] [place] [phone] documented as of this encounter Procedures Procedure Name Priority Date/Time Associated Comments Diagnosis TACROLIMUS LEVEL, B Routine 06/20/2013 7:37 Resul ts for this AM [employer]ATION SUPPORT EQUIPMENT REPAIRER procedure are i n the results section. PROTHROMBIN TIME (PT), P Routine 06/20/2013 7:37 Results for this AM [employer]IATION SUPPORT EQUIPMENT REPAIRER procedure are i n the results section. ALANINE AMINOTRANSFERASE Routine 06/20/2013 7:37 Results for this (ALT), S/P AM [employer]IATION SUPPORT EQUIPMENT REPAIRER procedure are i n the results section. ASPARTATE Routine 06/20/2013 7:37 Results for this AMINOTRANSFERASE (AST), AM AVIATION SUPPORT EQUIPMENT REPAIRER proc edure are in S/P the results section. POTASSIUM, S/P Routine 06/20/2013 7:37 Results fo r this AM AVIATION SUPPORT EQUIPMENT REPAIRER procedure are i n the results section. ALKALINE PHOSPHATASE, Routine 06/20/2013 7:37 Res ults for this S/P AM AVIATION SUPPORT EQUIPMENT REPAIRER procedure are i n the results section. CREATININE WITH EGFR, Routine 06/20/2013 7:37 Res ults for this S/P AM AVIATION SUPPORT EQUIPMENT REPAIRER procedure are i n the results section. BILIRUBIN DIRECT, S/P Routine 06/20/2013 7:37 Res ults for this AM AVIATION SUPPORT EQUIPMENT REPAIRER procedure are i n the results section. BILIRUBIN, TOT, S/P Routine 06/20/2013 7:37 Resul ts for this AM [employer]IATION SUPPORT EQUIPMENT REPAIRER procedure are i n the results section. GLUCOSE POCT, B Routine 06/19/2013 11:01 Results for this AM [employer]IATION SUPPORT EQUIPMENT REPAIRER procedure are i n the results section. GLUCOSE POCT, B Routine 06/19/2013 6:46 Results f or this AM AVIATION SUPPORT EQUIPMENT REPAIRER procedure are i n the results section. ELECTROLYTE (CHEM 4) Routine 06/19/2013 5:24 Resu lts for this PANEL, S/P AM [employer]IATION SUPPORT EQUIPMENT REPAIRER procedure are i n the results section. CBC NO CALL BACK, REFLEX Routine 06/19/2013 5:24 Results for this T/S AM AVIATION SUPPORT EQUIPMENT REPAIRER procedure are i n the results section. TACROLIMUS LEVEL, B Routine 06/19/2013 5:24 Resul ts for this AM AVIATION SUPPORT EQUIPMENT REPAIRER procedure are i n the results section. BILIRUBIN, S Routine 06/19/2013 5:24 Results for this AM AVIATION SUPPORT EQUIPMENT REPAIRER procedure are i n the results section. ALANINE AMINOTRANSFERASE Routine 06/19/2013 5:24 Results for this (ALT), S/P AM AVIATION SUPPORT EQUIPMENT REPAIRER procedure are i n the results section. ASPARTATE Routine 06/19/2013 5:24 Results for this AMINOTRANSFERASE (AST), AM AVIATION SUPPORT EQUIPMENT REPAIRER proc edure are in S/P the results section. ALKALINE PHOSPHATASE, Routine 06/19/2013 5:24 Res ults for this S/P AM AVIATION SUPPORT EQUIPMENT REPAIRER procedure are i n the results section. GLUCOSE POCT, B Routine 06/18/2013 5:42 Results f or this PM [employer]IATION SUPPORT EQUIPMENT REPAIRER procedure are i n the results section. GLUCOSE POCT, B Routine 06/18/2013 12:00 Results for this PM [employer]IATION SUPPORT EQUIPMENT REPAIRER procedure are i n the results section. US ABDOMEN LIMITED PLUS Routine 06/18/2013 11:38 Results for this ABDOMEN DOPPLER AM [employer]IATION SUPPORT EQUIPMENT REPAIRER procedure ar e in the results section. DX CHEST AP OR PA AND Routine 06/18/2013 10:43 Re sults for this LATERAL 2 VIEWS AM [employer]IATION SUPPORT EQUIPMENT REPAIRER procedure ar e in the results section. GLUCOSE POCT, B Routine 06/18/2013 7:53 Results f or this AM AVIATION SUPPORT EQUIPMENT REPAIRER procedure are i n the results section. ELECTROLYTE (CHEM 4) Routine 06/18/2013 5:16 Resu lts for this PANEL, S/P AM [employer]IATION SUPPORT EQUIPMENT REPAIRER procedure are i n the results section. CBC NO CALL BACK, REFLEX Routine 06/18/2013 5:16 Results for this T/S AM AVIATION SUPPORT EQUIPMENT REPAIRER procedure are i n the results section. PROTHROMBIN TIME (PT), P Routine 06/18/2013 5:16 Results for this AM AVIATION SUPPORT EQUIPMENT REPAIRER procedure are i n the results section. BILIRUBIN, S Routine 06/18/2013 5:16 Results for this AM AVIATION SUPPORT EQUIPMENT REPAIRER procedure are i n the results section. ALANINE AMINOTRANSFERASE Routine 06/18/2013 5:16 Results for this (ALT), S/P AM AVIATION SUPPORT EQUIPMENT REPAIRER procedure are i n the results section. ASPARTATE Routine 06/18/2013 5:16 Results for this AMINOTRANSFERASE (AST), AM AVIATION SUPPORT EQUIPMENT REPAIRER proc edure are in S/P the results section. PROTEIN, TOTAL, S/P Routine 06/18/2013 5:16 Resul ts for this AM AVIATION SUPPORT EQUIPMENT REPAIRER procedure are i n the results section. ALKALINE PHOSPHATASE, Routine 06/18/2013 5:16 Res ults for this S/P AM AVIATION SUPPORT EQUIPMENT REPAIRER procedure are i n the results section. MAGNESIUM, S Routine 06/18/2013 5:16 Results for this AM AVIATION SUPPORT EQUIPMENT REPAIRER procedure are i n the results section. CALCIUM, TOT, S/P Routine 06/18/2013 5:16 Results for this AM AVIATION SUPPORT EQUIPMENT REPAIRER procedure are i n the results section. ALBUMIN, S/P Routine 06/18/2013 5:16 Results for this AM AVIATION SUPPORT EQUIPMENT REPAIRER procedure are i n the results section. GLUCOSE POCT, B Routine 06/17/2013 8:42 Results f or this PM [employer]IATION SUPPORT EQUIPMENT REPAIRER procedure are i n the results section. GLUCOSE POCT, B Routine 06/17/2013 5:46 Results f or this PM AVIATION SUPPORT EQUIPMENT REPAIRER procedure are i n the results section. GLUCOSE POCT, B Routine 06/17/2013 12:08 Results for this PM AVIATION SUPPORT EQUIPMENT REPAIRER procedure are i n the results section. GLUCOSE POCT, B Routine 06/17/2013 7:40 Results f or this AM AVIATION SUPPORT EQUIPMENT REPAIRER procedure are i n the results section. ELECTROLYTE (CHEM 4) Routine 06/17/2013 5:09 Resu lts for this PANEL, S/P AM AVIATION SUPPORT EQUIPMENT REPAIRER procedure are i n the results section. ALANINE AMINOTRANSFERASE Routine 06/17/2013 5:09 Results for this (ALT), S/P AM AVIATION SUPPORT EQUIPMENT REPAIRER procedure are i n the results section. ASPARTATE Routine 06/17/2013 5:09 Results for this AMINOTRANSFERASE (AST), AM AVIATION SUPPORT EQUIPMENT REPAIRER proc edure are in S/P the results section. PHOSPHORUS (INORGANIC), Routine 06/17/2013 5:09 R esults for this S AM AVIATION SUPPORT EQUIPMENT REPAIRER procedure are i n the results section. ALKALINE PHOSPHATASE, Routine 06/17/2013 5:09 Res ults for this S/P AM AVIATION SUPPORT EQUIPMENT REPAIRER procedure are i n the results section. MAGNESIUM, S Routine 06/17/2013 5:09 Results for this AM AVIATION SUPPORT EQUIPMENT REPAIRER procedure are i n the results section. CALCIUM, IONIZED, S/B Routine 06/17/2013 5:09 Res ults for this AM AVIATION SUPPORT EQUIPMENT REPAIRER procedure are i n the results section. BILIRUBIN DIRECT, S/P Routine 06/17/2013 5:09 Res ults for this AM AVIATION SUPPORT EQUIPMENT REPAIRER procedure are i n the results section. BILIRUBIN, TOT, S/P Routine 06/17/2013 5:09 Resul ts for this AM AVIATION SUPPORT EQUIPMENT REPAIRER procedure are i n the results section. HX CHROMOSOMES, SISTER Routine 06/17/2013 5:08 Re sults for this CHROMATID EXCH AM AVIATION SUPPORT EQUIPMENT REPAIRER procedure are in the results section. CBC WITH DIFFERENTIAL, B Routine 06/17/2013 5:08 Results for this AM AVIATION SUPPORT EQUIPMENT REPAIRER procedure are i n the results section. GLUCOSE POCT, B Routine 06/17/2013 4:29 Results f or this AM AVIATION SUPPORT EQUIPMENT REPAIRER procedure are i n the results section. GLUCOSE POCT, B Routine 06/16/2013 10:23 Results for this PM [employer]IATION SUPPORT EQUIPMENT REPAIRER procedure are i n the results section. GLUCOSE POCT, B Routine 06/16/2013 4:53 Results f or this PM [employer]IATION SUPPORT EQUIPMENT REPAIRER procedure are i n the results section. VANCOMYCIN, TROUGH, S Routine 06/16/2013 4:04 Res ults for this PM AVIATION SUPPORT EQUIPMENT REPAIRER procedure are i n the results section. ELECTROLYTE (CHEM 4) Routine 06/16/2013 11:43 Res ults for this PANEL, S/P AM AVIATION SUPPORT EQUIPMENT REPAIRER procedure are i n the results section. GLUCOSE POCT, B Routine 06/16/2013 11:43 Results for this AM AVIATION SUPPORT EQUIPMENT REPAIRER procedure are i n the results section. CBC WITHOUT Routine 06/16/2013 11:43 Results for this DIFFERENTIAL, B AM AVIATION SUPPORT EQUIPMENT REPAIRER procedure ar e in the results section. PHOSPHORUS (INORGANIC), Routine 06/16/2013 11:43 Results for this S AM AVIATION SUPPORT EQUIPMENT REPAIRER procedure are i n the results section. MAGNESIUM, S Routine 06/16/2013 11:43 Results for this AM AVIATION SUPPORT EQUIPMENT REPAIRER procedure are i n the results section. CALCIUM, IONIZED, S/B Routine 06/16/2013 11:43 Re sults for this AM AVIATION SUPPORT EQUIPMENT REPAIRER procedure are i n the results section. ELECTROLYTE (CHEM 4) Routine 06/16/2013 7:06 Resu lts for this PANEL, S/P AM AVIATION SUPPORT EQUIPMENT REPAIRER procedure are i n the results section. ACTIVATED PARTIAL Routine 06/16/2013 7:06 Results for this THROMBOPLASTIN TIME AM AVIATION SUPPORT EQUIPMENT REPAIRER procedur e are in (APTT), P the results section. PROTHROMBIN TIME (PT), P Routine 06/16/2013 7:06 Results for this AM AVIATION SUPPORT EQUIPMENT REPAIRER procedure are i n the results section. FIBRINOGEN, P Routine 06/16/2013 7:06 Results for this AM AVIATION SUPPORT EQUIPMENT REPAIRER procedure are i n the results section. CBC WITHOUT Routine 06/16/2013 7:06 Results for this DIFFERENTIAL, B AM AVIATION SUPPORT EQUIPMENT REPAIRER procedure ar e in the results section. GLUCOSE POCT, B Routine 06/16/2013 7:05 Results f or this AM AVIATION SUPPORT EQUIPMENT REPAIRER procedure are i n the results section. ELECTROLYTE (CHEM 4) Routine 06/16/2013 1:46 Resu lts for this PANEL, S/P AM AVIATION SUPPORT EQUIPMENT REPAIRER procedure are i n the results section. CBC NO CALL BACK, REFLEX Routine 06/16/2013 1:46 Results for this T/S AM AVIATION SUPPORT EQUIPMENT REPAIRER procedure are i n the results section. ACTIVATED PARTIAL Routine 06/16/2013 1:46 Results for this THROMBOPLASTIN TIME AM AVIATION SUPPORT EQUIPMENT REPAIRER procedur e are in (APTT), P the results section. PROTHROMBIN TIME (PT), P Routine 06/16/2013 1:46 Results for this AM AVIATION SUPPORT EQUIPMENT REPAIRER procedure are i n the results section. BILIRUBIN, S Routine 06/16/2013 1:46 Results for this AM AVIATION SUPPORT EQUIPMENT REPAIRER procedure are i n the results section. ALANINE AMINOTRANSFERASE Routine 06/16/2013 1:46 Results for this (ALT), S/P AM AVIATION SUPPORT EQUIPMENT REPAIRER procedure are i n the results section. ASPARTATE Routine 06/16/2013 1:46 Results for this AMINOTRANSFERASE (AST), AM AVIATION SUPPORT EQUIPMENT REPAIRER proc edure are in S/P the results section. PHOSPHORUS (INORGANIC), Routine 06/16/2013 1:46 R esults for this S AM AVIATION SUPPORT EQUIPMENT REPAIRER procedure are i n the results section. ALKALINE PHOSPHATASE, Routine 06/16/2013 1:46 Res ults for this S/P AM AVIATION SUPPORT EQUIPMENT REPAIRER procedure are i n the results section. CALCIUM, TOT, S/P Routine 06/16/2013 1:46 Results for this AM AVIATION SUPPORT EQUIPMENT REPAIRER procedure are i n the results section. ALBUMIN, S/P Routine 06/16/2013 1:46 Results for this AM AVIATION SUPPORT EQUIPMENT REPAIRER procedure are i n the results section. ACTIVATED PARTIAL Routine 06/15/2013 11:31 Result s for this THROMBOPLASTIN TIME PM AVIATION SUPPORT EQUIPMENT REPAIRER procedur e are in (APTT), P the results section. PROTHROMBIN TIME (PT), P Routine 06/15/2013 11:31 Results for this PM AVIATION SUPPORT EQUIPMENT REPAIRER procedure are i n the results section. FIBRINOGEN, P Routine 06/15/2013 11:31 Results fo r this PM AVIATION SUPPORT EQUIPMENT REPAIRER procedure are i n the results section. CBC WITHOUT Routine 06/15/2013 11:31 Results for this DIFFERENTIAL, B PM AVIATION SUPPORT EQUIPMENT REPAIRER procedure ar e in the results section. GLUCOSE POCT, B Routine 06/15/2013 9:27 Results f or this PM AVIATION SUPPORT EQUIPMENT REPAIRER procedure are i n the results section. PREPARE FRESH FROZEN Routine 06/15/2013 8:31 Resu lts for this PLASMA PM AVIATION SUPPORT EQUIPMENT REPAIRER procedure are i n the results section. THROMBOELASTOGRAPH, Routine 06/15/2013 7:33 Resul ts for this KAOLIN, B PM AVIATION SUPPORT EQUIPMENT REPAIRER procedure are i n the results section. PROTHROMBIN TIME (PT), P Routine 06/15/2013 7:31 Results for this PM AVIATION SUPPORT EQUIPMENT REPAIRER procedure are i n the results section. FIBRINOGEN, P Routine 06/15/2013 7:31 Results for this PM AVIATION SUPPORT EQUIPMENT REPAIRER procedure are i n the results section. ABG W/COOX Routine 06/15/2013 7:20 Results for this PM [employer]IATION SUPPORT EQUIPMENT REPAIRER procedure are i n the results section. PREPARE RED BLOOD CELLS Routine 06/15/2013 7:10 R esults for this PM AVIATION SUPPORT EQUIPMENT REPAIRER procedure are i n the results section. PREPARE PLATELETS Routine 06/15/2013 7:05 Results for this PM AVIATION SUPPORT EQUIPMENT REPAIRER procedure are i n the results section. GLUCOSE POCT, B Routine 06/15/2013 5:47 Results f or this PM AVIATION SUPPORT EQUIPMENT REPAIRER procedure are i n the results section. ACTIVATED PARTIAL Routine 06/15/2013 5:47 Results for this THROMBOPLASTIN TIME PM AVIATION SUPPORT EQUIPMENT REPAIRER procedur e are in (APTT), P the results section. PROTHROMBIN TIME (PT), P Routine 06/15/2013 5:47 Results for this PM AVIATION SUPPORT EQUIPMENT REPAIRER procedure are i n the results section. FIBRINOGEN, P Routine 06/15/2013 5:47 Results for this PM AVIATION SUPPORT EQUIPMENT REPAIRER procedure are i n the results section. CBC WITHOUT Routine 06/15/2013 5:47 Results for this DIFFERENTIAL, B PM AVIATION SUPPORT EQUIPMENT REPAIRER procedure ar e in the results section. THROMBOELASTOGRAPH, Routine 06/15/2013 5:43 Resul ts for this KAOLIN, B PM AVIATION SUPPORT EQUIPMENT REPAIRER procedure are i n the results section. PREPARE FRESH FROZEN Routine 06/15/2013 3:57 Resu lts for this PLASMA PM AVIATION SUPPORT EQUIPMENT REPAIRER procedure are i n the results section. US ABDOMEN LIMITED PLUS Routine 06/15/2013 3:56 R esults for this ABDOMEN DOPPLER PM AVIATION SUPPORT EQUIPMENT REPAIRER procedure ar e in the results section. PREPARE PLATELETS Routine 06/15/2013 3:25 Results for this PM AVIATION SUPPORT EQUIPMENT REPAIRER procedure are i n the results section. PREPARE RED BLOOD CELLS Routine 06/15/2013 3:25 R esults for this PM AVIATION SUPPORT EQUIPMENT REPAIRER procedure are i n the results section. THROMBOELASTOGRAPH, Routine 06/15/2013 3:05 Resul ts for this KAOLIN, B PM AVIATION SUPPORT EQUIPMENT REPAIRER procedure are i n the results section. CBC WITHOUT Routine 06/15/2013 3:02 Results for this DIFFERENTIAL, B PM AVIATION SUPPORT EQUIPMENT REPAIRER procedure ar e in the results section. ACTIVATED PARTIAL Routine 06/15/2013 2:43 Results for this THROMBOPLASTIN TIME PM AVIATION SUPPORT EQUIPMENT REPAIRER procedur e are in (APTT), P the results section. PROTHROMBIN TIME (PT), P Routine 06/15/2013 2:43 Results for this PM AVIATION SUPPORT EQUIPMENT REPAIRER procedure are i n the results section. FIBRINOGEN, P Routine 06/15/2013 2:43 Results for this PM [employer]IATION SUPPORT EQUIPMENT REPAIRER procedure are i n the results section. PHOSPHORUS (INORGANIC), Routine 06/15/2013 1:19 R esults for this S PM AVIATION SUPPORT EQUIPMENT REPAIRER procedure are i n the results section. MAGNESIUM, S Routine 06/15/2013 1:19 Results for this PM [employer]IATION SUPPORT EQUIPMENT REPAIRER procedure are i n the results section. LACTATE, B/P Routine 06/15/2013 1:19 Results for this PM [employer]IATION SUPPORT EQUIPMENT REPAIRER procedure are i n the results section. ABORH, RBC Routine 06/15/2013 1:18 Results for this PM [employer]IATION SUPPORT EQUIPMENT REPAIRER procedure are i n the results section. ANTIBODY SCREEN, B Routine 06/15/2013 1:18 Result s for this PM [employer]IATION SUPPORT EQUIPMENT REPAIRER procedure are i n the results section. ELPN WITH CREATININE Routine 06/15/2013 1:13 Resu lts for this REMY, P PM [employer]IATION SUPPORT EQUIPMENT REPAIRER procedure are i n the results section. CBC WITHOUT Routine 06/15/2013 1:13 Results for this DIFFERENTIAL, B PM AVIATION SUPPORT EQUIPMENT REPAIRER procedure ar e in the results section. PREPARE PLATELETS Routine 06/15/2013 1:09 Results for this PM AVIATION SUPPORT EQUIPMENT REPAIRER procedure are i n the results section. PREPARE RED BLOOD CELLS Routine 06/15/2013 12:54 Results for this PM AVIATION SUPPORT EQUIPMENT REPAIRER procedure are i n the results section. ABG AND ELECTROLYTES, B Routine 06/15/2013 12:46 Results for this (RAPIDPOINT - [place]) PM AVIATION SUPPORT EQUIPMENT REPAIRER procedure are in the results section. GLUCOSE POCT, B Routine 06/15/2013 12:14 Results for this PM [employer]IATION SUPPORT EQUIPMENT REPAIRER procedure are i n the results section. ACTIVATED PARTIAL Routine 06/15/2013 8:59 Results for this THROMBOPLASTIN TIME AM AVIATION SUPPORT EQUIPMENT REPAIRER procedur e are in (APTT), P the results section. HLA CLASS II LOW Routine 06/15/2013 7:45 Results for this RESOLUTION TYPING AM [employer]IATION SUPPORT EQUIPMENT REPAIRER procedure are in the results section. HLA CLASS I LOW Routine 06/15/2013 7:45 Results f or this RESOLUTION TYPING AM AVIATION SUPPORT EQUIPMENT REPAIRER procedure are in the results section. HLA CROSSMATCH DONOR Routine 06/15/2013 7:42 Resu lts for this DRAW AM AVIATION SUPPORT EQUIPMENT REPAIRER procedure are i n the results section. HLA CDC CROSSMATCH Routine 06/15/2013 7:42 Result s for this AM AVIATION SUPPORT EQUIPMENT REPAIRER procedure are i n the results section. GLUCOSE POCT, B Routine 06/15/2013 7:33 Results f or this AM AVIATION SUPPORT EQUIPMENT REPAIRER procedure are i n the results section. ACTIVATED PARTIAL Routine 06/15/2013 3:33 Results for this THROMBOPLASTIN TIME AM AVIATION SUPPORT EQUIPMENT REPAIRER procedur e are in (APTT), P the results section. PROTHROMBIN TIME (PT), P Routine 06/15/2013 3:33 Results for this AM AVIATION SUPPORT EQUIPMENT REPAIRER procedure are i n the results section. ELECTROLYTE (CHEM 4) Routine 06/15/2013 3:32 Resu lts for this PANEL, S/P AM AVIATION SUPPORT EQUIPMENT REPAIRER procedure are i n the results section. CBC NO CALL BACK, REFLEX Routine 06/15/2013 3:32 Results for this T/S AM AVIATION SUPPORT EQUIPMENT REPAIRER procedure are i n the results section. BILIRUBIN, S Routine 06/15/2013 3:32 Results for this AM AVIATION SUPPORT EQUIPMENT REPAIRER procedure are i n the results section. ALANINE AMINOTRANSFERASE Routine 06/15/2013 3:32 Results for this (ALT), S/P AM AVIATION SUPPORT EQUIPMENT REPAIRER procedure are i n the results section. ASPARTATE Routine 06/15/2013 3:32 Results for this AMINOTRANSFERASE (AST), AM AVIATION SUPPORT EQUIPMENT REPAIRER proc edure are in S/P the results section. PHOSPHORUS (INORGANIC), Routine 06/15/2013 3:32 R esults for this S AM AVIATION SUPPORT EQUIPMENT REPAIRER procedure are i n the results section. ALKALINE PHOSPHATASE, Routine 06/15/2013 3:32 Res ults for this S/P AM AVIATION SUPPORT EQUIPMENT REPAIRER procedure are i n the results section. MAGNESIUM, S Routine 06/15/2013 3:32 Results for this AM AVIATION SUPPORT EQUIPMENT REPAIRER procedure are i n the results section. CALCIUM, TOT, S/P Routine 06/15/2013 3:32 Results for this AM AVIATION SUPPORT EQUIPMENT REPAIRER procedure are i n the results section. ALBUMIN, S/P Routine 06/15/2013 3:32 Results for this AM AVIATION SUPPORT EQUIPMENT REPAIRER procedure are i n the results section. GLUCOSE POCT, B Routine 06/15/2013 3:26 Results f or this AM AVIATION SUPPORT EQUIPMENT REPAIRER procedure are i n the results section. ACTIVATED PARTIAL Routine 06/14/2013 8:58 Results for this THROMBOPLASTIN TIME PM [employer]IATION SUPPORT EQUIPMENT REPAIRER procedur e are in (APTT), P the results section. GLUCOSE POCT, B Routine 06/14/2013 5:46 Results f or this PM [employer]IATION SUPPORT EQUIPMENT REPAIRER procedure are i n the results section. GLUCOSE POCT, B Routine 06/14/2013 12:31 Results for this PM [employer]IATION SUPPORT EQUIPMENT REPAIRER procedure are i n the results section. US ABDOMEN LIMITED PLUS Routine 06/14/2013 10:50 Results for this ABDOMEN DOPPLER AM AVIATION SUPPORT EQUIPMENT REPAIRER procedure ar e in the results section. GLUCOSE POCT, B Routine 06/14/2013 7:53 Results f or this AM [employer]IATION SUPPORT EQUIPMENT REPAIRER procedure are i n the results section. CBC NO CALL BACK, REFLEX Routine 06/14/2013 2:06 Results for this T/S AM [employer]IATION SUPPORT EQUIPMENT REPAIRER procedure are i n the results section. CYTOMEGALOVIRUS AB, IGM Routine 06/14/2013 2:06 R esults for this AND IGG AM [employer]IATION SUPPORT EQUIPMENT REPAIRER procedure are i n the results section. HLA CLASS II SAB Routine 06/14/2013 2:06 Results for this ANTIBODY SCREEN AM [employer]IATION SUPPORT EQUIPMENT REPAIRER procedure ar e in the results section. HLA CLASS I SAB ANTIBODY Routine 06/14/2013 2:06 Results for this SCREEN AM [employer]IATION SUPPORT EQUIPMENT REPAIRER procedure are i n the results section. BUN (BLOOD UREA Routine 06/14/2013 2:06 Results f or this NITROGEN), S/P AM [employer]IATION SUPPORT EQUIPMENT REPAIRER procedure are in the results section. TROPONIN T, 5TH GEN, P Routine 06/14/2013 2:06 Re sults for this AM AVIATION SUPPORT EQUIPMENT REPAIRER procedure are i n the results section. ALANINE AMINOTRANSFERASE Routine 06/14/2013 2:06 Results for this (ALT), S/P AM AVIATION SUPPORT EQUIPMENT REPAIRER procedure are i n the results section. ASPARTATE Routine 06/14/2013 2:06 Results for this AMINOTRANSFERASE (AST), AM [employer]IATION SUPPORT EQUIPMENT REPAIRER proc edure are in S/P the results section. PHOSPHORUS (INORGANIC), Routine 06/14/2013 2:06 R esults for this S AM [employer]IATION SUPPORT EQUIPMENT REPAIRER procedure are i n the results section. ALKALINE PHOSPHATASE, Routine 06/14/2013 2:06 Res ults for this S/P AM [employer]IATION SUPPORT EQUIPMENT REPAIRER procedure are i n the results section. MAGNESIUM, S Routine 06/14/2013 2:06 Results for this AM [employer]IATION SUPPORT EQUIPMENT REPAIRER procedure are i n the results section. GLUCOSE, FASTING, S/P Routine 06/14/2013 2:06 Res ults for this AM [employer] SUPPORT EQUIPMENT REPAIRER procedure are i n the results section. CALCIUM, TOT, S/P Routine 06/14/2013 2:06 Results for this AM [employer]IATION SUPPORT EQUIPMENT REPAIRER procedure are i n the results section. ALBUMIN, S/P Routine 06/14/2013 2:06 Results for this AM [employer] SUPPORT EQUIPMENT REPAIRER procedure are i n the results section. HX MICROBIOLOGY REPORTS Routine 06/14/2013 2:05 R esults for this AM [employer] SUPPORT EQUIPMENT REPAIRER procedure are i n the results section. ABG W/COOX Routine 06/14/2013 1:45 Results for this AM [employer] SUPPORT EQUIPMENT REPAIRER procedure are i n the results section. ELPN WITH CREATININE Routine 06/14/2013 1:45 Resu lts for this REMY, P AM [employer]IATION SUPPORT EQUIPMENT REPAIRER procedure are i n the results section. ACTIVATED PARTIAL Routine 06/14/2013 1:45 Results for this THROMBOPLASTIN TIME AM [employer] SUPPORT EQUIPMENT REPAIRER procedur e are in (APTT), P the results section. PROTHROMBIN TIME (PT), P Routine 06/14/2013 1:45 Results for this AM [employer] SUPPORT EQUIPMENT REPAIRER procedure are i n the results section. FIBRINOGEN, P Routine 06/14/2013 1:45 Results for this AM [employer]IATION SUPPORT EQUIPMENT REPAIRER procedure are i n the results section. CALCIUM, IONIZED, S/B Routine 06/14/2013 1:45 Res ults for this AM [employer]IATION SUPPORT EQUIPMENT REPAIRER procedure are i n the results section. GLUCOSE POCT, B Routine 06/13/2013 9:53 Results f or this PM [employer]IATION SUPPORT EQUIPMENT REPAIRER procedure are i n the results section. HXINTRA-OP AUTO TX Routine 06/13/2013 8:26 Result s for this PM [employer] SUPPORT EQUIPMENT REPAIRER procedure are i n the results section. HXINTRA-OP AUTO TX Routine 06/13/2013 8:26 Result s for this PM [employer]IATION SUPPORT EQUIPMENT REPAIRER procedure are i n the results section. GLUCOSE POCT, B Routine 06/13/2013 4:55 Results f or this PM [employer]IATION SUPPORT EQUIPMENT REPAIRER procedure are i n the results section. ABG W/COOX Routine 06/13/2013 4:36 Results for this PM [employer]IATION SUPPORT EQUIPMENT REPAIRER procedure are i n the results section. ELECTROLYTE (CHEM 4) Routine 06/13/2013 1:45 Resu lts for this PANEL, S/P PM [employer] SUPPORT EQUIPMENT REPAIRER procedure are i n the results section. ABG W/COOX Routine 06/13/2013 1:45 Results for this PM [employer]IATION SUPPORT EQUIPMENT REPAIRER procedure are i n the results section. ACTIVATED PARTIAL Routine 06/13/2013 1:45 Results for this THROMBOPLASTIN TIME PM [employer]IATION SUPPORT EQUIPMENT REPAIRER procedur e are in (APTT), P the results section. PROTHROMBIN TIME (PT), P Routine 06/13/2013 1:45 Results for this PM [employer]IATION SUPPORT EQUIPMENT REPAIRER procedure are i n the results section. FIBRINOGEN, P Routine 06/13/2013 1:45 Results for this PM [employer]IATION SUPPORT EQUIPMENT REPAIRER procedure are i n the results section. CBC WITHOUT Routine 06/13/2013 1:45 Results for this DIFFERENTIAL, B PM [employer] SUPPORT EQUIPMENT REPAIRER procedure ar e in the results section. CALCIUM, IONIZED, S/B Routine 06/13/2013 1:45 Res ults for this PM [employer]IATION SUPPORT EQUIPMENT REPAIRER procedure are i n the results section. GLUCOSE POCT, B Routine 06/13/2013 1:41 Results f or this PM [employer]IATION SUPPORT EQUIPMENT REPAIRER procedure are i n the results section. GLUCOSE POCT, B Routine 06/13/2013 12:49 Results for this PM [employer]IATION SUPPORT EQUIPMENT REPAIRER procedure are i n the results section. GLUCOSE POCT, B Routine 06/13/2013 12:04 Results for this PM [employer]IATION SUPPORT EQUIPMENT REPAIRER procedure are i n the results section. GLUCOSE POCT, B Routine 06/13/2013 10:39 Results for this AM [employer]IATION SUPPORT EQUIPMENT REPAIRER procedure are i n the results section. GLUCOSE POCT, B Routine 06/13/2013 9:39 Results f or this AM [employer]IATION SUPPORT EQUIPMENT REPAIRER procedure are i n the results section. GLUCOSE POCT, B Routine 06/13/2013 8:43 Results f or this AM [employer]IATION SUPPORT EQUIPMENT REPAIRER procedure are i n the results section. US ABDOMEN LIMITED PLUS Routine 06/13/2013 8:28 R esults for this ABDOMEN DOPPLER AM [employer] SUPPORT EQUIPMENT REPAIRER procedure ar e in the results section. ABG W/COOX Routine 06/13/2013 7:40 Results for this AM [employer]IATION SUPPORT EQUIPMENT REPAIRER procedure are i n the results section. ELPN WITH CREATININE Routine 06/13/2013 7:40 Resu lts for this REMY, P AM [employer]IATION SUPPORT EQUIPMENT REPAIRER procedure are i n the results section. THROMBOELASTOGRAPH, Routine 06/13/2013 7:40 Resul ts for this KAOLIN, B AM [employer]IATION SUPPORT EQUIPMENT REPAIRER procedure are i n the results section. ACTIVATED PARTIAL Routine 06/13/2013 7:40 Results for this THROMBOPLASTIN TIME AM [employer]IATION SUPPORT EQUIPMENT REPAIRER procedur e are in (APTT), P the results section. PROTHROMBIN TIME (PT), P Routine 06/13/2013 7:40 Results for this AM [employer]IATION SUPPORT EQUIPMENT REPAIRER procedure are i n the results section. FIBRINOGEN, P Routine 06/13/2013 7:40 Results for this AM [employer]IATION SUPPORT EQUIPMENT REPAIRER procedure are i n the results section. CBC WITHOUT Routine 06/13/2013 7:40 Results for this DIFFERENTIAL, B AM [employer]IATION SUPPORT EQUIPMENT REPAIRER procedure ar e in the results section. CALCIUM, IONIZED, S/B Routine 06/13/2013 7:40 Res ults for this AM [employer]IATION SUPPORT EQUIPMENT REPAIRER procedure are i n the results section. GLUCOSE POCT, B Routine 06/13/2013 7:38 Results f or this AM [employer]IATION SUPPORT EQUIPMENT REPAIRER procedure are i n the results section. GLUCOSE POCT, B Routine 06/13/2013 6:42 Results f or this AM [employer]IATION SUPPORT EQUIPMENT REPAIRER procedure are i n the results section. GLUCOSE POCT, B Routine 06/13/2013 5:48 Results f or this AM [employer]IATION SUPPORT EQUIPMENT REPAIRER procedure are i n the results section. GLUCOSE POCT, B Routine 06/13/2013 4:34 Results f or this AM [employer]IATION SUPPORT EQUIPMENT REPAIRER procedure are i n the results section. ELECTROLYTE (CHEM 4) Routine 06/13/2013 3:34 Resu lts for this PANEL, S/P AM [employer]IATION SUPPORT EQUIPMENT REPAIRER procedure are i n the results section. ABG W/COOX Routine 06/13/2013 3:34 Results for this AM AVIATION SUPPORT EQUIPMENT REPAIRER procedure are i n the results section. CALCIUM, IONIZED, S/B Routine 06/13/2013 3:34 Res ults for this AM AVIATION SUPPORT EQUIPMENT REPAIRER procedure are i n the results section. GLUCOSE POCT, B Routine 06/13/2013 3:16 Results f or this AM [employer]IATION SUPPORT EQUIPMENT REPAIRER procedure are i n the results section. ACTIVATED PARTIAL Routine 06/13/2013 3:10 Results for this THROMBOPLASTIN TIME AM [employer]IATION SUPPORT EQUIPMENT REPAIRER procedur e are in (APTT), P the results section. PROTHROMBIN TIME (PT), P Routine 06/13/2013 3:10 Results for this AM [employer]IATION SUPPORT EQUIPMENT REPAIRER procedure are i n the results section. FIBRINOGEN, P Routine 06/13/2013 3:10 Results for this AM [employer]IATION SUPPORT EQUIPMENT REPAIRER procedure are i n the results section. CBC WITHOUT Routine 06/13/2013 3:10 Results for this DIFFERENTIAL, B AM [employer]IATION SUPPORT EQUIPMENT REPAIRER procedure ar e in the results section. DX CHEST PORTABLE 1 VIEW Routine 06/13/2013 2:07 Results for this AM [employer] SUPPORT EQUIPMENT REPAIRER procedure are i n the results section. PH BLOOD GAS Routine 06/13/2013 1:52 Results for this AM [employer]IATION SUPPORT EQUIPMENT REPAIRER procedure are i n the results section. ELECTROLYTE (CHEM 4) Routine 06/13/2013 1:52 Resu lts for this PANEL, S/P AM [employer]IATION SUPPORT EQUIPMENT REPAIRER procedure are i n the results section. ACTIVATED PARTIAL Routine 06/13/2013 1:52 Results for this THROMBOPLASTIN TIME AM [employer]IATION SUPPORT EQUIPMENT REPAIRER procedur e are in (APTT), P the results section. PROTHROMBIN TIME (PT), P Routine 06/13/2013 1:52 Results for this AM AVIATION SUPPORT EQUIPMENT REPAIRER procedure are i n the results section. FIBRINOGEN, P Routine 06/13/2013 1:52 Results for this AM AVIATION SUPPORT EQUIPMENT REPAIRER procedure are i n the results section. CBC WITHOUT Routine 06/13/2013 1:52 Results for this DIFFERENTIAL, B AM [employer]IATION SUPPORT EQUIPMENT REPAIRER procedure ar e in the results section. ALANINE AMINOTRANSFERASE Routine 06/13/2013 1:52 Results for this (ALT), S/P AM [employer]IATION SUPPORT EQUIPMENT REPAIRER procedure are i n the results section. ASPARTATE Routine 06/13/2013 1:52 Results for this AMINOTRANSFERASE (AST), AM AVIATION SUPPORT EQUIPMENT REPAIRER proc edure are in S/P the results section. ALKALINE PHOSPHATASE, Routine 06/13/2013 1:52 Res ults for this S/P AM [employer]IATION SUPPORT EQUIPMENT REPAIRER procedure are i n the results section. CALCIUM, IONIZED, S/B Routine 06/13/2013 1:52 Res ults for this AM [employer]IATION SUPPORT EQUIPMENT REPAIRER procedure are i n the results section. BILIRUBIN DIRECT, S/P Routine 06/13/2013 1:52 Res ults for this AM [employer]IATION SUPPORT EQUIPMENT REPAIRER procedure are i n the results section. BILIRUBIN, TOT, S/P Routine 06/13/2013 1:52 Resul ts for this AM [employer]IATION SUPPORT EQUIPMENT REPAIRER procedure are i n the results section. ABG W/COOX Routine 06/13/2013 1:44 Results for this AM AVIATION SUPPORT EQUIPMENT REPAIRER procedure are i n the results section. DX ABDOMEN PORTABLE Routine 06/13/2013 1:27 Resul ts for this ANTERIOR POSTERIOR 1 AM [employer]IATION SUPPORT EQUIPMENT REPAIRER procedu re are in VIEW the results section. ABG W/COOX Routine 06/13/2013 12:34 Results for this AM AVIATION SUPPORT EQUIPMENT REPAIRER procedure are i n the results section. POTASSIUM, B Routine 06/13/2013 12:34 Results for this AM AVIATION SUPPORT EQUIPMENT REPAIRER procedure are i n the results section. GLUCOSE, WHOLE BLOOD Routine 06/13/2013 12:34 Res ults for this AM AVIATION SUPPORT EQUIPMENT REPAIRER procedure are i n the results section. THROMBOELASTOGRAPH, Routine 06/13/2013 12:34 Resu lts for this KAOLIN, B AM AVIATION SUPPORT EQUIPMENT REPAIRER procedure are i n the results section. ACTIVATED PARTIAL Routine 06/13/2013 12:34 Result s for this THROMBOPLASTIN TIME AM [employer]IATION SUPPORT EQUIPMENT REPAIRER procedur e are in (APTT), P the results section. PROTHROMBIN TIME (PT), P Routine 06/13/2013 12:34 Results for this AM AVIATION SUPPORT EQUIPMENT REPAIRER procedure are i n the results section. FIBRINOGEN, P Routine 06/13/2013 12:34 Results fo r this AM [employer]IATION SUPPORT EQUIPMENT REPAIRER procedure are i n the results section. PLATELETS, B Routine 06/13/2013 12:34 Results for this AM AVIATION SUPPORT EQUIPMENT REPAIRER procedure are i n the results section. SODIUM, S/P Routine 06/13/2013 12:34 Results for this AM AVIATION SUPPORT EQUIPMENT REPAIRER procedure are i n the results section. CALCIUM, IONIZED, S/B Routine 06/13/2013 12:34 Re sults for this AM AVIATION SUPPORT EQUIPMENT REPAIRER procedure are i n the results section. PREPARE CRYOPRECIPITATE Routine 06/13/2013 12:11 Results for this AM AVIATION SUPPORT EQUIPMENT REPAIRER procedure are i n the results section. ABG W/COOX Routine 06/12/2013 11:34 Results for this PM AVIATION SUPPORT EQUIPMENT REPAIRER procedure are i n the results section. POTASSIUM, B Routine 06/12/2013 11:34 Results for this PM AVIATION SUPPORT EQUIPMENT REPAIRER procedure are i n the results section. GLUCOSE, WHOLE BLOOD Routine 06/12/2013 11:34 Res ults for this PM [employer]IATION SUPPORT EQUIPMENT REPAIRER procedure are i n the results section. THROMBOELASTOGRAPH, Routine 06/12/2013 11:34 Resu lts for this KAOLIN, B PM AVIATION SUPPORT EQUIPMENT REPAIRER procedure are i n the results section. ACTIVATED PARTIAL Routine 06/12/2013 11:34 Result s for this THROMBOPLASTIN TIME PM [employer]IATION SUPPORT EQUIPMENT REPAIRER procedur e are in (APTT), P the results section. PROTHROMBIN TIME (PT), P Routine 06/12/2013 11:34 Results for this PM [employer]IATION SUPPORT EQUIPMENT REPAIRER procedure are i n the results section. FIBRINOGEN, P Routine 06/12/2013 11:34 Results fo r this PM [employer]IATION SUPPORT EQUIPMENT REPAIRER procedure are i n the results section. PLATELETS, B Routine 06/12/2013 11:34 Results for this PM [employer]IATION SUPPORT EQUIPMENT REPAIRER procedure are i n the results section. SODIUM, S/P Routine 06/12/2013 11:34 Results for this PM AVIATION SUPPORT EQUIPMENT REPAIRER procedure are i n the results section. CALCIUM, IONIZED, S/B Routine 06/12/2013 11:34 Re sults for this PM [employer]IATION SUPPORT EQUIPMENT REPAIRER procedure are i n the results section. PREPARE PLATELETS Routine 06/12/2013 11:03 Result s for this PM [employer]IATION SUPPORT EQUIPMENT REPAIRER procedure are i n the results section. ABG W/COOX Routine 06/12/2013 11:00 Results for this PM [employer]IATION SUPPORT EQUIPMENT REPAIRER procedure are i n the results section. POTASSIUM, B Routine 06/12/2013 11:00 Results for this PM [employer]IATION SUPPORT EQUIPMENT REPAIRER procedure are i n the results section. GLUCOSE, WHOLE BLOOD Routine 06/12/2013 11:00 Res ults for this PM [employer]IATION SUPPORT EQUIPMENT REPAIRER procedure are i n the results section. THROMBOELASTOGRAPH, Routine 06/12/2013 11:00 Resu lts for this KAOLIN, B PM AVIATION SUPPORT EQUIPMENT REPAIRER procedure are i n the results section. ACTIVATED PARTIAL Routine 06/12/2013 11:00 Result s for this THROMBOPLASTIN TIME PM [employer]IATION SUPPORT EQUIPMENT REPAIRER procedur e are in (APTT), P the results section. PROTHROMBIN TIME (PT), P Routine 06/12/2013 11:00 Results for this PM [employer]IATION SUPPORT EQUIPMENT REPAIRER procedure are i n the results section. FIBRINOGEN, P Routine 06/12/2013 11:00 Results fo r this PM [employer]IATION SUPPORT EQUIPMENT REPAIRER procedure are i n the results section. PLATELETS, B Routine 06/12/2013 11:00 Results for this PM AVIATION SUPPORT EQUIPMENT REPAIRER procedure are i n the results section. SODIUM, S/P Routine 06/12/2013 11:00 Results for this PM AVIATION SUPPORT EQUIPMENT REPAIRER procedure are i n the results section. CALCIUM, IONIZED, S/B Routine 06/12/2013 11:00 Re sults for this PM [employer]IATION SUPPORT EQUIPMENT REPAIRER procedure are i n the results section. PREPARE CRYOPRECIPITATE Routine 06/12/2013 10:42 Results for this PM [employer]IATION SUPPORT EQUIPMENT REPAIRER procedure are i n the results section. ABG W/COOX Routine 06/12/2013 10:32 Results for this PM [employer]IATION SUPPORT EQUIPMENT REPAIRER procedure are i n the results section. POTASSIUM, B Routine 06/12/2013 10:32 Results for this PM AVIATION SUPPORT EQUIPMENT REPAIRER procedure are i n the results section. GLUCOSE, WHOLE BLOOD Routine 06/12/2013 10:32 Res ults for this PM AVIATION SUPPORT EQUIPMENT REPAIRER procedure are i n the results section. THROMBOELASTOGRAPH, Routine 06/12/2013 10:32 Resu lts for this KAOLIN, B PM AVIATION SUPPORT EQUIPMENT REPAIRER procedure are i n the results section. ACTIVATED PARTIAL Routine 06/12/2013 10:32 Result s for this THROMBOPLASTIN TIME PM [employer]IATION SUPPORT EQUIPMENT REPAIRER procedur e are in (APTT), P the results section. PROTHROMBIN TIME (PT), P Routine 06/12/2013 10:32 Results for this PM [employer]IATION SUPPORT EQUIPMENT REPAIRER procedure are i n the results section. FIBRINOGEN, P Routine 06/12/2013 10:32 Results fo r this PM [employer]IATION SUPPORT EQUIPMENT REPAIRER procedure are i n the results section. PLATELETS, B Routine 06/12/2013 10:32 Results for this PM AVIATION SUPPORT EQUIPMENT REPAIRER procedure are i n the results section. SODIUM, S/P Routine 06/12/2013 10:32 Results for this PM AVIATION SUPPORT EQUIPMENT REPAIRER procedure are i n the results section. CALCIUM, IONIZED, S/B Routine 06/12/2013 10:32 Re sults for this PM AVIATION SUPPORT EQUIPMENT REPAIRER procedure are i n the results section. PREPARE PLATELETS Routine 06/12/2013 10:28 Result s for this PM AVIATION SUPPORT EQUIPMENT REPAIRER procedure are i n the results section. PREPARE FRESH FROZEN Routine 06/12/2013 10:28 Res ults for this PLASMA PM AVIATION SUPPORT EQUIPMENT REPAIRER procedure are i n the results section. PREPARE RED BLOOD CELLS Routine 06/12/2013 10:28 Results for this PM [employer]IATION SUPPORT EQUIPMENT REPAIRER procedure are i n the results section. PREPARE PLATELETS Routine 06/12/2013 10:20 Result s for this PM [employer]IATION SUPPORT EQUIPMENT REPAIRER procedure are i n the results section. PREPARE FRESH FROZEN Routine 06/12/2013 10:20 Res ults for this PLASMA PM AVIATION SUPPORT EQUIPMENT REPAIRER procedure are i n the results section. PREPARE RED BLOOD CELLS Routine 06/12/2013 10:18 Results for this PM AVIATION SUPPORT EQUIPMENT REPAIRER procedure are i n the results section. ABG W/COOX Routine 06/12/2013 10:12 Results for this PM AVIATION SUPPORT EQUIPMENT REPAIRER procedure are i n the results section. POTASSIUM, B Routine 06/12/2013 10:12 Results for this PM AVIATION SUPPORT EQUIPMENT REPAIRER procedure are i n the results section. GLUCOSE, WHOLE BLOOD Routine 06/12/2013 10:12 Res ults for this PM AVIATION SUPPORT EQUIPMENT REPAIRER procedure are i n the results section. THROMBOELASTOGRAPH, Routine 06/12/2013 10:12 Resu lts for this KAOLIN, B PM [employer]IATION SUPPORT EQUIPMENT REPAIRER procedure are i n the results section. ACTIVATED PARTIAL Routine 06/12/2013 10:12 Result s for this THROMBOPLASTIN TIME PM [employer]IATION SUPPORT EQUIPMENT REPAIRER procedur e are in (APTT), P the results section. PROTHROMBIN TIME (PT), P Routine 06/12/2013 10:12 Results for this PM [employer]IATION SUPPORT EQUIPMENT REPAIRER procedure are i n the results section. FIBRINOGEN, P Routine 06/12/2013 10:12 Results fo r this PM [employer]IATION SUPPORT EQUIPMENT REPAIRER procedure are i n the results section. PLATELETS, B Routine 06/12/2013 10:12 Results for this PM [employer]IATION SUPPORT EQUIPMENT REPAIRER procedure are i n the results section. SODIUM, S/P Routine 06/12/2013 10:12 Results for this PM [employer]IATION SUPPORT EQUIPMENT REPAIRER procedure are i n the results section. CALCIUM, IONIZED, S/B Routine 06/12/2013 10:12 Re sults for this PM [employer]IATION SUPPORT EQUIPMENT REPAIRER procedure are i n the results section. PREPARE RED BLOOD CELLS Routine 06/12/2013 10:11 Results for this PM [employer]IATION SUPPORT EQUIPMENT REPAIRER procedure are i n the results section. PREPARE RED BLOOD CELLS Routine 06/12/2013 10:04 Results for this PM [employer]IATION SUPPORT EQUIPMENT REPAIRER procedure are i n the results section. HX MICROBIOLOGY REPORTS Routine 06/12/2013 9:58 R esults for this PM [employer] SUPPORT EQUIPMENT REPAIRER procedure are i n the results section. ABG W/COOX Routine 06/12/2013 9:56 Results for this PM [employer]IATION SUPPORT EQUIPMENT REPAIRER procedure are i n the results section. POTASSIUM, B Routine 06/12/2013 9:56 Results for this PM [employer]IATION SUPPORT EQUIPMENT REPAIRER procedure are i n the results section. GLUCOSE, WHOLE BLOOD Routine 06/12/2013 9:56 Resu lts for this PM [employer]IATION SUPPORT EQUIPMENT REPAIRER procedure are i n the results section. THROMBOELASTOGRAPH, Routine 06/12/2013 9:56 Resul ts for this KAOLIN, B PM [employer]IATION SUPPORT EQUIPMENT REPAIRER procedure are i n the results section. ACTIVATED PARTIAL Routine 06/12/2013 9:56 Results for this THROMBOPLASTIN TIME PM [employer]IATION SUPPORT EQUIPMENT REPAIRER procedur e are in (APTT), P the results section. PROTHROMBIN TIME (PT), P Routine 06/12/2013 9:56 Results for this PM [employer]IATION SUPPORT EQUIPMENT REPAIRER procedure are i n the results section. FIBRINOGEN, P Routine 06/12/2013 9:56 Results for this PM [employer]IATION SUPPORT EQUIPMENT REPAIRER procedure are i n the results section. PLATELETS, B Routine 06/12/2013 9:56 Results for this PM AVIATION SUPPORT EQUIPMENT REPAIRER procedure are i n the results section. SODIUM, S/P Routine 06/12/2013 9:56 Results for this PM [employer]IATION SUPPORT EQUIPMENT REPAIRER procedure are i n the results section. CALCIUM, IONIZED, S/B Routine 06/12/2013 9:56 Res ults for this PM AVIATION SUPPORT EQUIPMENT REPAIRER procedure are i n the results section. PREPARE FRESH FROZEN Routine 06/12/2013 9:50 Resu lts for this PLASMA PM [employer]IATION SUPPORT EQUIPMENT REPAIRER procedure are i n the results section. PREPARE RED BLOOD CELLS Routine 06/12/2013 9:50 R esults for this PM [employer]IATION SUPPORT EQUIPMENT REPAIRER procedure are i n the results section. PREPARE RED BLOOD CELLS Routine 06/12/2013 9:38 R esults for this PM [employer]IATION SUPPORT EQUIPMENT REPAIRER procedure are i n the results section. ABG W/COOX Routine 06/12/2013 9:24 Results for this PM [employer]IATION SUPPORT EQUIPMENT REPAIRER procedure are i n the results section. POTASSIUM, B Routine 06/12/2013 9:24 Results for this PM AVIATION SUPPORT EQUIPMENT REPAIRER procedure are i n the results section. GLUCOSE, WHOLE BLOOD Routine 06/12/2013 9:24 Resu lts for this PM [employer]IATION SUPPORT EQUIPMENT REPAIRER procedure are i n the results section. THROMBOELASTOGRAPH, Routine 06/12/2013 9:24 Resul ts for this KAOLIN, B PM AVIATION SUPPORT EQUIPMENT REPAIRER procedure are i n the results section. ACTIVATED PARTIAL Routine 06/12/2013 9:24 Results for this THROMBOPLASTIN TIME PM AVIATION SUPPORT EQUIPMENT REPAIRER procedur e are in (APTT), P the results section. PROTHROMBIN TIME (PT), P Routine 06/12/2013 9:24 Results for this PM [employer]IATION SUPPORT EQUIPMENT REPAIRER procedure are i n the results section. FIBRINOGEN, P Routine 06/12/2013 9:24 Results for this PM AVIATION SUPPORT EQUIPMENT REPAIRER procedure are i n the results section. PLATELETS, B Routine 06/12/2013 9:24 Results for this PM AVIATION SUPPORT EQUIPMENT REPAIRER procedure are i n the results section. SODIUM, S/P Routine 06/12/2013 9:24 Results for this PM AVIATION SUPPORT EQUIPMENT REPAIRER procedure are i n the results section. CALCIUM, IONIZED, S/B Routine 06/12/2013 9:24 Res ults for this PM AVIATION SUPPORT EQUIPMENT REPAIRER procedure are i n the results section. ABG W/COOX Routine 06/12/2013 8:53 Results for this PM [employer]IATION SUPPORT EQUIPMENT REPAIRER procedure are i n the results section. POTASSIUM, B Routine 06/12/2013 8:53 Results for this PM AVIATION SUPPORT EQUIPMENT REPAIRER procedure are i n the results section. GLUCOSE, WHOLE BLOOD Routine 06/12/2013 8:53 Resu lts for this PM [employer]IATION SUPPORT EQUIPMENT REPAIRER procedure are i n the results section. THROMBOELASTOGRAPH, Routine 06/12/2013 8:53 Resul ts for this KAOLIN, B PM AVIATION SUPPORT EQUIPMENT REPAIRER procedure are i n the results section. ACTIVATED PARTIAL Routine 06/12/2013 8:53 Results for this THROMBOPLASTIN TIME PM AVIATION SUPPORT EQUIPMENT REPAIRER procedur e are in (APTT), P the results section. PROTHROMBIN TIME (PT), P Routine 06/12/2013 8:53 Results for this PM [employer]IATION SUPPORT EQUIPMENT REPAIRER procedure are i n the results section. FIBRINOGEN, P Routine 06/12/2013 8:53 Results for this PM [employer]IATION SUPPORT EQUIPMENT REPAIRER procedure are i n the results section. PLATELETS, B Routine 06/12/2013 8:53 Results for this PM [employer]IATION SUPPORT EQUIPMENT REPAIRER procedure are i n the results section. SODIUM, S/P Routine 06/12/2013 8:53 Results for this PM [employer]IATION SUPPORT EQUIPMENT REPAIRER procedure are i n the results section. CALCIUM, IONIZED, S/B Routine 06/12/2013 8:53 Res ults for this PM [employer]IATION SUPPORT EQUIPMENT REPAIRER procedure are i n the results section. PREPARE PLATELETS Routine 06/12/2013 8:49 Results for this PM [employer]IATION SUPPORT EQUIPMENT REPAIRER procedure are i n the results section. PREPARE FRESH FROZEN Routine 06/12/2013 8:49 Resu lts for this PLASMA PM AVIATION SUPPORT EQUIPMENT REPAIRER procedure are i n the results section. PREPARE CRYOPRECIPITATE Routine 06/12/2013 8:49 R esults for this PM [employer]IATION SUPPORT EQUIPMENT REPAIRER procedure are i n the results section. PREPARE RED BLOOD CELLS Routine 06/12/2013 8:48 R esults for this PM [employer]IATION SUPPORT EQUIPMENT REPAIRER procedure are i n the results section. PREPARE PLATELETS Routine 06/12/2013 8:00 Results for this PM AVIATION SUPPORT EQUIPMENT REPAIRER procedure are i n the results section. PREPARE FRESH FROZEN Routine 06/12/2013 8:00 Resu lts for this PLASMA PM AVIATION SUPPORT EQUIPMENT REPAIRER procedure are i n the results section. ABG W/COOX Routine 06/12/2013 7:48 Results for this PM AVIATION SUPPORT EQUIPMENT REPAIRER procedure are i n the results section. POTASSIUM, B Routine 06/12/2013 7:48 Results for this PM [employer]IATION SUPPORT EQUIPMENT REPAIRER procedure are i n the results section. GLUCOSE, WHOLE BLOOD Routine 06/12/2013 7:48 Resu lts for this PM [employer]IATION SUPPORT EQUIPMENT REPAIRER procedure are i n the results section. THROMBOELASTOGRAPH, Routine 06/12/2013 7:48 Resul ts for this KAOLIN, B PM [employer]IATION SUPPORT EQUIPMENT REPAIRER procedure are i n the results section. ACTIVATED PARTIAL Routine 06/12/2013 7:48 Results for this THROMBOPLASTIN TIME PM [employer] SUPPORT EQUIPMENT REPAIRER procedur e are in (APTT), P the results section. PROTHROMBIN TIME (PT), P Routine 06/12/2013 7:48 Results for this PM [employer]IATION SUPPORT EQUIPMENT REPAIRER procedure are i n the results section. FIBRINOGEN, P Routine 06/12/2013 7:48 Results for this PM [employer]IATION SUPPORT EQUIPMENT REPAIRER procedure are i n the results section. PLATELETS, B Routine 06/12/2013 7:48 Results for this PM [employer]IATION SUPPORT EQUIPMENT REPAIRER procedure are i n the results section. SODIUM, S/P Routine 06/12/2013 7:48 Results for this PM [employer]IATION SUPPORT EQUIPMENT REPAIRER procedure are i n the results section. CALCIUM, IONIZED, S/B Routine 06/12/2013 7:48 Res ults for this PM [employer]IATION SUPPORT EQUIPMENT REPAIRER procedure are i n the results section. DX CHEST AP OR PA AND Routine 06/12/2013 7:40 Res ults for this LATERAL 2 VIEWS AM AVIATION SUPPORT EQUIPMENT REPAIRER procedure ar e in the results section. HX MICROBIOLOGY REPORTS Routine 06/12/2013 7:38 R esults for this AM [employer]IATION SUPPORT EQUIPMENT REPAIRER procedure are i n the results section. MICROSCOPIC MANUAL Routine 06/12/2013 7:38 Result s for this AM [employer]IATION SUPPORT EQUIPMENT REPAIRER procedure are i n the results section. GRAM'S ST, U Routine 06/12/2013 7:38 Results for this AM AVIATION SUPPORT EQUIPMENT REPAIRER procedure are i n the results section. URINALYSIS WITH Routine 06/12/2013 7:38 Results f or this MICROSCOPIC AM AVIATION SUPPORT EQUIPMENT REPAIRER procedure are i n the results section. HX MICROBIOLOGY REPORTS Routine 06/12/2013 6:49 R esults for this AM AVIATION SUPPORT EQUIPMENT REPAIRER procedure are i n the results section. HX MICROBIOLOGY REPORTS Routine 06/12/2013 6:45 R esults for this AM AVIATION SUPPORT EQUIPMENT REPAIRER procedure are i n the results section. CYTOMEGALOVIRUS AB, IGM Routine 06/12/2013 6:45 R esults for this AND IGG AM AVIATION SUPPORT EQUIPMENT REPAIRER procedure are i n the results section. AMMONIA Routine 06/12/2013 6:45 Results for this AM AVIATION SUPPORT EQUIPMENT REPAIRER procedure are i n the results section. ELECTROLYTE (CHEM 4) Routine 06/12/2013 6:44 Resu lts for this PANEL, S/P AM [employer] SUPPORT EQUIPMENT REPAIRER procedure are i n the results section. HEPATITIS BE AG AND AB Routine 06/12/2013 6:44 Re sults for this AM [employer]IATION SUPPORT EQUIPMENT REPAIRER procedure are i n the results section. HLA CLASS II SAB Routine 06/12/2013 6:44 Results for this ANTIBODY SCREEN AM [employer] SUPPORT EQUIPMENT REPAIRER procedure ar e in the results section. HLA CLASS I SAB ANTIBODY Routine 06/12/2013 6:44 Results for this SCREEN AM [employer]IATION SUPPORT EQUIPMENT REPAIRER procedure are i n the results section. HCV AB W/REFLEX TO HCV Routine 06/12/2013 6:44 Re sults for this PCR, S AM [employer]IATION SUPPORT EQUIPMENT REPAIRER procedure are i n the results section. HEPATITIS A IGG AB S Routine 06/12/2013 6:44 Resu lts for this AM [employer]IATION SUPPORT EQUIPMENT REPAIRER procedure are i n the results section. HEP B CORE AB, IGM Routine 06/12/2013 6:44 Result s for this AM [employer]IATION SUPPORT EQUIPMENT REPAIRER procedure are i n the results section. HBC TOTAL AB, SERUM Routine 06/12/2013 6:44 Resul ts for this AM [employer]IATION SUPPORT EQUIPMENT REPAIRER procedure are i n the results section. HEPATITIS B SURFACE Routine 06/12/2013 6:44 Resul ts for this ANTIGEN AM [employer]IATION SUPPORT EQUIPMENT REPAIRER procedure are i n the results section. ACTIVATED PARTIAL Routine 06/12/2013 6:44 Results for this THROMBOPLASTIN TIME AM [employer]IATION SUPPORT EQUIPMENT REPAIRER procedur e are in (APTT), P the results section. PROTHROMBIN TIME (PT), P Routine 06/12/2013 6:44 Results for this AM [employer]IATION SUPPORT EQUIPMENT REPAIRER procedure are i n the results section. FIBRINOGEN, P Routine 06/12/2013 6:44 Results for this AM AVIATION SUPPORT EQUIPMENT REPAIRER procedure are i n the results section. CBC WITH DIFFERENTIAL, B Routine 06/12/2013 6:44 Results for this AM AVIATION SUPPORT EQUIPMENT REPAIRER procedure are i n the results section. TRIGLYCERIDES, S Routine 06/12/2013 6:44 Results for this AM AVIATION SUPPORT EQUIPMENT REPAIRER procedure are i n the results section. ALANINE AMINOTRANSFERASE Routine 06/12/2013 6:44 Results for this (ALT), S/P AM [employer]IATION SUPPORT EQUIPMENT REPAIRER procedure are i n the results section. ASPARTATE Routine 06/12/2013 6:44 Results for this AMINOTRANSFERASE (AST), AM AVIATION SUPPORT EQUIPMENT REPAIRER proc edure are in S/P the results section. THYROID-STIMULATING Routine 06/12/2013 6:44 Resul ts for this HORMONE-SENSITIVE AM [employer] SUPPORT EQUIPMENT REPAIRER procedure are in (S-TSH) the results section. PROTEIN, TOTAL, S/P Routine 06/12/2013 6:44 Resul ts for this AM AVIATION SUPPORT EQUIPMENT REPAIRER procedure are i n the results section. PHOSPHORUS (INORGANIC), Routine 06/12/2013 6:44 R esults for this S AM AVIATION SUPPORT EQUIPMENT REPAIRER procedure are i n the results section. ALKALINE PHOSPHATASE, Routine 06/12/2013 6:44 Res ults for this S/P AM AVIATION SUPPORT EQUIPMENT REPAIRER procedure are i n the results section. GLUCOSE, FASTING, S/P Routine 06/12/2013 6:44 Res ults for this AM AVIATION SUPPORT EQUIPMENT REPAIRER procedure are i n the results section. CHOLESTEROL, TOTAL, S Routine 06/12/2013 6:44 Res ults for this AM AVIATION SUPPORT EQUIPMENT REPAIRER procedure are i n the results section. CALCIUM, TOT, S/P Routine 06/12/2013 6:44 Results for this AM AVIATION SUPPORT EQUIPMENT REPAIRER procedure are i n the results section. BILIRUBIN DIRECT, S/P Routine 06/12/2013 6:44 Res ults for this AM AVIATION SUPPORT EQUIPMENT REPAIRER procedure are i n the results section. BILIRUBIN, TOT, S/P Routine 06/12/2013 6:44 Resul ts for this AM AVIATION SUPPORT EQUIPMENT REPAIRER procedure are i n the results section. ALBUMIN, S/P Routine 06/12/2013 6:44 Results for this AM AVIATION SUPPORT EQUIPMENT REPAIRER procedure are i n the results section. PREPARE RED BLOOD CELLS Routine 06/12/2013 6:28 R esults for this AM AVIATION SUPPORT EQUIPMENT REPAIRER procedure are i n the results section. ELECTROLYTE (CHEM 4) Routine 06/12/2013 5:34 Resu lts for this PANEL, S/P AM AVIATION SUPPORT EQUIPMENT REPAIRER procedure are i n the results section. CBC NO CALL BACK, REFLEX Routine 06/12/2013 5:34 Results for this T/S AM AVIATION SUPPORT EQUIPMENT REPAIRER procedure are i n the results section. PROTHROMBIN TIME (PT), P Routine 06/12/2013 5:34 Results for this AM AVIATION SUPPORT EQUIPMENT REPAIRER procedure are i n the results section. BILIRUBIN, S Routine 06/12/2013 5:34 Results for this AM AVIATION SUPPORT EQUIPMENT REPAIRER procedure are i n the results section. CALCIUM, TOT, S/P Routine 06/12/2013 5:34 Results for this AM AVIATION SUPPORT EQUIPMENT REPAIRER procedure are i n the results section. 25-HYDROXYVITAMIN D2 AND Routine 06/11/2013 2:37 Results for this D3, S PM AVIATION SUPPORT EQUIPMENT REPAIRER procedure are i n the results section. THYROID-STIMULATING Routine 06/11/2013 2:37 Resul ts for this HORMONE-SENSITIVE PM AVIATION SUPPORT EQUIPMENT REPAIRER procedure are in (S-TSH) the results section. PHOSPHORUS (INORGANIC), Routine 06/11/2013 2:37 R esults for this S PM AVIATION SUPPORT EQUIPMENT REPAIRER procedure are i n the results section. PARATHYROID HORMONE Routine 06/11/2013 2:37 Resul ts for this (PTH), S PM [employer]IATION SUPPORT EQUIPMENT REPAIRER procedure are i n the results section. CALCIUM, IONIZED, S/B Routine 06/11/2013 2:37 Res ults for this PM [employer]IATION SUPPORT EQUIPMENT REPAIRER procedure are i n the results section. DX CHEST AP OR PA AND Routine 06/11/2013 12:09 Re sults for this LATERAL 2 VIEWS PM [employer]ATION SUPPORT EQUIPMENT REPAIRER procedure ar e in the results section. US ABDOMEN LIMITED PLUS Routine 06/11/2013 11:53 Results for this ABDOMEN DOPPLER AM AVIATION SUPPORT EQUIPMENT REPAIRER procedure ar e in the results section. ELECTROLYTE (CHEM 4) Routine 06/11/2013 6:10 Resu lts for this PANEL, S/P AM AVIATION SUPPORT EQUIPMENT REPAIRER procedure are i n the results section. CBC NO CALL BACK, REFLEX Routine 06/11/2013 6:10 Results for this T/S AM AVIATION SUPPORT EQUIPMENT REPAIRER procedure are i n the results section. TACROLIMUS LEVEL, B Routine 06/11/2013 6:10 Resul ts for this AM AVIATION SUPPORT EQUIPMENT REPAIRER procedure are i n the results section. PROTHROMBIN TIME (PT), P Routine 06/11/2013 6:10 Results for this AM AVIATION SUPPORT EQUIPMENT REPAIRER procedure are i n the results section. BILIRUBIN, S Routine 06/11/2013 6:10 Results for this AM AVIATION SUPPORT EQUIPMENT REPAIRER procedure are i n the results section. ALANINE AMINOTRANSFERASE Routine 06/11/2013 6:10 Results for this (ALT), S/P AM AVIATION SUPPORT EQUIPMENT REPAIRER procedure are i n the results section. ASPARTATE Routine 06/11/2013 6:10 Results for this AMINOTRANSFERASE (AST), AM AVIATION SUPPORT EQUIPMENT REPAIRER proc edure are in S/P the results section. ALKALINE PHOSPHATASE, Routine 06/11/2013 6:10 Res ults for this S/P AM AVIATION SUPPORT EQUIPMENT REPAIRER procedure are i n the results section. MAGNESIUM, S Routine 06/11/2013 6:10 Results for this AM AVIATION SUPPORT EQUIPMENT REPAIRER procedure are i n the results section. CALCIUM, TOT, S/P Routine 06/11/2013 6:10 Results for this AM AVIATION SUPPORT EQUIPMENT REPAIRER procedure are i n the results section. ALBUMIN, S/P Routine 06/11/2013 6:10 Results for this AM AVIATION SUPPORT EQUIPMENT REPAIRER procedure are i n the results section. HX MICROBIOLOGY REPORTS Routine 06/10/2013 9:46 R esults for this PM AVIATION SUPPORT EQUIPMENT REPAIRER procedure are i n the results section. MICROSCOPIC MANUAL Routine 06/10/2013 9:46 Result s for this PM [employer]IATION SUPPORT EQUIPMENT REPAIRER procedure are i n the results section. URINALYSIS WITH Routine 06/10/2013 9:46 Results f or this MICROSCOPIC PM AVIATION SUPPORT EQUIPMENT REPAIRER procedure are i n the results section. HX MICROBIOLOGY REPORTS Routine 06/10/2013 5:58 R esults for this PM AVIATION SUPPORT EQUIPMENT REPAIRER procedure are i n the results section. HX MICROBIOLOGY REPORTS Routine 06/10/2013 5:46 R esults for this PM AVIATION SUPPORT EQUIPMENT REPAIRER procedure are i n the results section. HX MICROBIOLOGY REPORTS Routine 06/10/2013 5:01 R esults for this PM AVIATION SUPPORT EQUIPMENT REPAIRER procedure are i n the results section. CELL COUNT AND Routine 06/10/2013 5:01 Results fo r this DIFFERENTIAL, BF PM AVIATION SUPPORT EQUIPMENT REPAIRER procedure a re in the results section. DX CHEST AP OR PA AND Routine 06/10/2013 3:41 Res ults for this LATERAL 2 VIEWS PM [employer]IATION SUPPORT EQUIPMENT REPAIRER procedure ar e in the results section. PREPARE RED BLOOD CELLS Routine 06/10/2013 9:25 R esults for this AM AVIATION SUPPORT EQUIPMENT REPAIRER procedure are i n the results section. TACROLIMUS LEVEL, B Routine 06/10/2013 7:11 Resul ts for this AM AVIATION SUPPORT EQUIPMENT REPAIRER procedure are i n the results section. TACROLIMUS LEVEL, B Routine 06/09/2013 9:45 Resul ts for this AM AVIATION SUPPORT EQUIPMENT REPAIRER procedure are i n the results section. documented in this encounter Results Potassium (06/20/2013 7:37 AM AVIATION SUPPORT EQUIPMENT REPAIRER) P athologist Signature Potassium, S 4.1 3.6 - 5.2 [facility] MMOL/L LABORATORIES [facility] Specimen Anatomical Collection Method Collection Time Receive d Time (Source) Location / / Volume Laterality 06/20/2013 7:37 AM 3 7:37 AVIATION SUPPORT EQUIPMENT REPAIRER AM AVIATION SUPPORT EQUIPMENT REPAIRER Jovi Knight M.D. LAB BLOOD ADD-ON Performing Organization Address City/State/ZIP Code Phon e Number [facility] - [address] [place] [phone] [employer] [facility] (ABNORMAL) Bilirubin, Direct (06/20/2013 7:37 AM AVIATION SUPPORT EQUIPMENT REPAIRER) Patholo gist Method Time Signature Bilirubin, 1.8 (H) 0.0 - 0.3 [facility] Direct, S MG/DL LABORATORIES - [employer] [facility] Specimen Anatomical Collection Method Collection Time Receive d Time (Source) Location / / Volume Laterality 06/20/2013 7:37 AM 3 7:37 AVIATION SUPPORT EQUIPMENT REPAIRER AM AVIATION SUPPORT EQUIPMENT REPAIRER Jovi Knight M.D. LAB BLOOD ADD-ON Performing Organization Address City/[facility]/ZIP Code Phon e Number [facility] - [address] [phone] [employer] [facility] Creatinine with Estimated GFR (MDRD) (06/20/2013 7:37 AM AVIATION SUPPORT EQUIPMENT REPAIRER) Analysis Performed At Patho logist Time Signature Creatinine 1.2 0.8 - 1.3 [facility] MG/DL LABORATORIES - [employer] [facility] eGFR >60 >60 [facility] Non-Black/Afric ML/MIN/BSA LABORATORIES - an [place] [employer] [facility] eGFR-Black/Afri >60 >60 [facility] can [place] ML/MIN/BSA LABORATORIES - [facility] [employer] [facility] Specimen Anatomical Collection Method Collection Time Receive d Time (Source) Location / / Volume Laterality 06/20/2013 7:37 AM 3 7:37 AVIATION SUPPORT EQUIPMENT REPAIRER AM AVIATION SUPPORT EQUIPMENT REPAIRER Jovi Knight M.D. LAB BLOOD ADD-ON Performing Organization Address City/State/ZIP Code Phon e Number [facility] - [address] [place] [phone] [facility] [employer] [facility] (ABNORMAL) Tacrolimus Level (06/20/2013 7:37 AM AVIATION SUPPORT EQUIPMENT REPAIRER) [facility] Method Time Signature Tacrolimus, B 3.1 (L) 5.0-15.0 [facility] (Trough) LABORATORIES - NG/ML [facility] [employer] [facility] Tacrolimus . [facility] Blood Date of LABORATORIES - Last Dose [facility] [employer] Comment: Not Specified Tacrolimus Time of Last Dose . M [facility] LAB[facility]IES - [place] [employer] [facility] Comment: Not Specified Tacrolimus Blood Dose, mg . MG [facility]IES - [employer] [place] [employer] Comment: Not Specified Specimen Anatomical Collection Method Collection Time Receive d Time (Source) Location / / Volume Laterality 06/20/2013 7:37 AM 3 7:37 AVIATION SUPPORT EQUIPMENT REPAIRER AM AVIATION SUPPORT EQUIPMENT REPAIRER Jovi Knight M.D. LAB BLOOD NON ADD-ON Performing Organization Address City/State/ZIP Code Phon e Number [facility] - [address] (ABNORMAL) ALT (Alanine Aminotransferase) (06/20/2013 7:37 AM AVIATION SUPPORT EQUIPMENT REPAIRER) [facility] Method [place] Signature Alanine 65 (H) 7 - 55 [facility] Aminotransferase U/L LABORATORIES - (ALT), S [employer] [facility] Specimen Anatomical Collection Method Collection Time Receive d Time (Source) Location / / Volume Laterality 06/20/2013 7:37 AM 3 7:37 AVIATION SUPPORT EQUIPMENT REPAIRER AM AVIATION SUPPORT EQUIPMENT REPAIRER Jovi Knight M.D. LAB BLOOD ADD-ON Performing Organization Address City/State/ZIP Code Phon e Number [facility] - [address] [place] [phone] [facility] [employer] [facility] (ABNORMAL) Alkaline Phosphatase (06/20/2013 7:37 AM AVIATION SUPPORT EQUIPMENT REPAIRER) [facility] Method Time Signature Alkaline 118 (H) 45 - 115 [facility] Phosphatase, S U/L LABORATORIES - [employer] Specimen Anatomical Collection Method Collection Time Receive d Time (Source) Location / / Volume Laterality 06/20/2013 7:37 AM 3 7:37 AVIATION SUPPORT EQUIPMENT REPAIRER AM AVIATION SUPPORT EQUIPMENT REPAIRER Jovi Knight M.D. LAB BLOOD ADD-ON Performing Organization Address City/State/ZIP Code Phon e Number [facility] - [address] [place] [phone] [employer] [facility] (ABNORMAL) Bilirubin, Total (06/20/2013 7:37 AM AVIATION SUPPORT EQUIPMENT REPAIRER) [facility] Method [place] Signature Bilirubin, 3.2 (H) 0.1 - 1.0 [facility] Total, S MG/DL LAB[facility]ATORIES [facility] Specimen Anatomical Collection Method Collection Time Receive d Time (Source) Location / / Volume Laterality 06/20/2013 7:37 AM 3 7:37 AVIATION SUPPORT EQUIPMENT REPAIRER AM AVIATION SUPPORT EQUIPMENT REPAIRER Jovi Knight M.D. LAB BLOOD ADD-ON Performing Organization Address City/[facility]/ZIP Code Phon e Number [facility] - [address] [phone] [employer] [facility] AST (Aspartate Aminotransferase) (06/20/2013 7:37 AM AVIATION SUPPORT EQUIPMENT REPAIRER) P athologist Signature AST, Total, S 27 8 - 48 U/L [facility] Specimen Anatomical Collection Method Collection Time Receive d Time (Source) Location / / Volume Laterality 06/20/2013 7:37 AM 3 7:37 AVIATION SUPPORT EQUIPMENT REPAIRER AM AVIATION SUPPORT EQUIPMENT REPAIRER Jovi Knight M.D. LAB BLOOD ADD-ON Performing Organization Address City/[facility]/ZIP Code Phon e Number [facility] - [address] [phone] [employer] [facility] PT (Prothrombin Time) with INR (06/20/2013 7:37 AM AVIATION SUPPORT EQUIPMENT REPAIRER) [facility] Method Time Signature Prothrombin 13.0 9.5 - 13.8 [facility] Time, P SEC LABORATORIES - [employer] [facility] INR 1.1 0.8 - 1.2 [facility] Specimen Anatomical Collection Method Collection Time Receive d Time (Source) Location / / Volume Laterality 06/20/2013 7:37 AM 3 7:37 AVIATION SUPPORT EQUIPMENT REPAIRER AM AVIATION SUPPORT EQUIPMENT REPAIRER Jovi Knight M.D. LAB BLOOD ADD-ON Performing Organization Address City/[facility] Phon e Number [facility] - [address] [phone] [employer] [facility] (ABNORMAL) Glucose, POCT (06/19/2013 11:01 AM AVIATION SUPPORT EQUIPMENT REPAIRER) [facility] gist Method Time Signature Glucose, 223 (H) 70 - 140 [facility] POCT, B MG/DL LAB[facility]ATORIES [facility] Sample Site, Capillary [facility] Blood Gas, LABORATORIES - POCT [employer] [facility] Specimen Anatomical Collection Method Collection Time Receive d Time (Source) Location / / Volume Laterality 06/19/2013 11:01 06/19/2013 AM AVIATION SUPPORT EQUIPMENT REPAIRER 11:01 AM AVIATION SUPPORT EQUIPMENT REPAIRER Historical Provider LAB POCT ORDERABLES-MANUAL Performing Organization Address City/[facility] Phon e Number [facility]IES - [address] [place] [phone] [employer] [facility] (ABNORMAL) Glucose, POCT (06/19/2013 6:46 AM AVIATION SUPPORT EQUIPMENT REPAIRER) [facility] Method Time Signature Glucose, 157 (H) 70 - 140 [facility] POCT, B MG/DL LABORATORIES - [employer] [facility] Sample Site, Capillary [facility] Blood Gas, LABORATORIES - POCT [facility] [employer] [facility] Last Intake 2-3 hours [facility] - [place] [employer] [facility] Specimen Anatomical Collection Method Collection Time Receive d Time (Source) Location / / Volume Laterality 06/19/2013 6:46 AM 3 6:46 AVIATION SUPPORT EQUIPMENT REPAIRER AM AVIATION SUPPORT EQUIPMENT REPAIRER Historical Provider LAB POCT ORDERABLES-MANUAL Performing Organization Address City/State/[facility] Code Phon e Number [facility]IES - [address] [place] [phone] [employer] [facility] (ABNORMAL) Electrolyte (Chem 4) Panel (06/19/2013 5:24 AM AVIATION SUPPORT EQUIPMENT REPAIRER) [facility] Method Time Signature Chloride, S 98 (L) 100 - 108 [facility] MMOL/L LABORATORIES - [employer] [facility] HX Bicarbonate, 24 22 - 29 [facility] P/S MMOL/L LABORATORIES - [employer] [facility] eGFR-Black/Afri >60 >60 [facility] can [place] ML/MIN/BS LABORATORIES - [facility] BUN (Blood Urea 28 (H) 8 - 24 [facility] Nitrogen), S MG/DL [facility] - [employer] [place] [employer] [facility] Sodium, S 130 (L) 135 - 145 [facility] MMOL/L [facility] Potassium, S 3.7 3.6 - 5.2 [facility] MMOL/L LAB[facility] Creatinine 1.3 0.8 - 1.3 [facility] MG/DL [facility] - [employer] [facility] eGFR 57 (L) >60 [facility] Non-Black/Afric ML/MIN/BS LABORATORIES - [place] A [employer] [facility] Anion Gap 8 7 - 15 [facility] Glucose, S 204 (H) 70 - 140 [facility] MG/DL LABORATORIES - [employer] [facility] Specimen Anatomical Collection Method Collection Time Receive d Time (Source) Location / / Volume Laterality 06/19/2013 5:24 AM 3 5:24 AVIATION SUPPORT EQUIPMENT REPAIRER AM AVIATION SUPPORT EQUIPMENT REPAIRER Historical Provider LAB BLOOD ADD-ON Performing Organization Address City/State/ZIP Code Phon e Number [facility]IES - [address] [place], [place] [address] [employer] [facility] (ABNORMAL) ALT (Alanine Aminotransferase) (06/19/2013 5:24 AM AVIATION SUPPORT EQUIPMENT REPAIRER) [facility] Dr[facility] [place] Method Time Signature Alanine 71 (H) 7 - 55 [facility] Aminotransferase U/L LABORATORIES - (ALT), S [employer] [facility] Specimen Anatomical Collection Method Collection Time Receive d Time (Source) Location / / Volume Laterality 06/19/2013 5:24 AM 3 5:24 AVIATION SUPPORT EQUIPMENT REPAIRER AM AVIATION SUPPORT EQUIPMENT REPAIRER Historical Provider LAB BLOOD ADD-ON Performing Organization Address City/[facility] Code Phon e Number [facility]IES - [address] [place] [phone] [employer] [facility] (ABNORMAL) CBC with Differential - No Alerts (06/19/2013 5:24 AM AVIATION SUPPORT EQUIPMENT REPAIRER) [facility] Dr[facility] [place] Method Time Signature Hemoglobin 8.3 (L) 13.5 - [facility] 17.5 G/DL LABORATORIES - [employer] [facility] Hematocrit 24.1 (L) 38.8 - [facility] 50.0 % LABORATORIES - [place] [facility] RBC Distrib 15.9 (H) 11.8 - [facility] Width 15.6 % LABORATORIES - [place] [employer] [facility] Platelet Count 90 (L) 150 - 450 [facility] X10(9)/L LABORATORIES - [place] [employer] [facility] Lymphocytes 0.38 (L) 0.90 - [facility] 2.90 LABORATORIES - X10(9)/L [facility] Monocytes 0.49 0.30 - [facility] 0.90 LABORATORIES - X10(9)/L [facility] Erythrocytes 2.72 (L) 4.32 - [facility] 5.72 LABORATORIES - X10(12)/L [facility] MCV 88.6 81.2 - [facility] 95.1 [place] LABORATORIES - [place] [employer] [facility] Leukocytes 4.5 3.5 - [facility] 10.5 LABORATORIES - X10(9)/L [facility] Neutrophils 3.53 1.70 - [facility] 7.00 LABORATORIES - X10(9)/L [facility] Eosinophils 0.09 0.05 - [facility] 0.50 LABORATORIES - X10(9)/L [facility] [place] [facility] Basophils 0.00 0.00 - [facility] 0.30 LABORATORIES - X10(9)/L [facility] Specimen Anatomical Collection Method Collection Time Receive d Time (Source) Location / / Volume Laterality 06/19/2013 5:24 AM 3 5:24 AVIATION SUPPORT EQUIPMENT REPAIRER AM AVIATION SUPPORT EQUIPMENT REPAIRER Historical Provider LAB BLOOD NON ADD-ON Performing Organization Address City/[facility]/ZIP Code Phon e Number [facility] LABORATORIES - [address] [place] [phone] [place] [employer] [facility] AST (Aspartate Aminotransferase) (06/19/2013 5:24 AM AVIATION SUPPORT EQUIPMENT REPAIRER) P athologist Signature AST, Total, S 29 8 - 48 U/L [facility] Specimen Anatomical Collection Method Collection Time Receive d Time (Source) Location / / Volume Laterality 06/19/2013 5:24 AM 3 5:24 AVIATION SUPPORT EQUIPMENT REPAIRER AM AVIATION SUPPORT EQUIPMENT REPAIRER Historical Provider LAB BLOOD ADD-ON Performing Organization Address City/[facility] Phon e Number [facility] LABORATORIES - [address] [phone] [place] [employer] [facility] (ABNORMAL) Tacrolimus Level (06/19/2013 5:24 AM AVIATION SUPPORT EQUIPMENT REPAIRER) [facility] gist Method Time Signature Tacrolimus, B 2.4 (L) 5.0-15.0 [facility] (Trough) LABORATORIES - NG/ML [facility] Tacrolimus . [facility] Blood Date of LABORATORIES - Last Dose [facility] [place] [facility] Comment: Not Specified Tacrolimus Time of Last Dose . M [facility]ATORIES [facility] Comment: Not Specified Tacrolimus Blood Dose, mg . MG [facility] LABORATORIES [facility] Comment: Not Specified Specimen Anatomical Collection Method Collection Time Receive d Time (Source) Location / / Volume Laterality 06/19/2013 5:24 AM 3 5:24 AVIATION SUPPORT EQUIPMENT REPAIRER AM AVIATION SUPPORT EQUIPMENT REPAIRER Historical Provider LAB BLOOD NON ADD-ON Performing Organization Address City/State/ZIP [facility] Phon e Number [facility] LABORATORIES - [address] [place], [place] [address] [place] [employer] [facility] (ABNORMAL) Alkaline Phosphatase (06/19/2013 5:24 AM AVIATION SUPPORT EQUIPMENT REPAIRER) [facility] gist Method Time Signature Alkaline 117 (H) 45 - 115 [facility] Phosphatase, S U/L LABORATORIES - [place] [employer] [facility] Specimen Anatomical Collection Method Collection Time Receive d Time (Source) Location / / Volume Laterality 06/19/2013 5:24 AM 3 5:24 AVIATION SUPPORT EQUIPMENT REPAIRER AM AVIATION SUPPORT EQUIPMENT REPAIRER Historical Provider LAB BLOOD ADD-ON Performing Organization Address City/[facility]/ZIP Code Phon e Number [facility]ORATORIES - [address], [place] [address] [place] [employer] [facility] (ABNORMAL) Bilirubin (06/19/2013 5:24 AM AVIATION SUPPORT EQUIPMENT REPAIRER) [facility] gist Method Time Signature Bilirubin, 2.9 (H) 0.1 - 1.0 [facility] Total, S MG/DL LABORATORIES - [place] [employer] [facility] Bilirubin, 1.8 (H) 0.0 - 0.3 [facility] Direct, S MG/DL LABORATORIES - [place] [employer] [facility] Specimen Anatomical Collection Method Collection Time Receive d Time (Source) Location / / Volume Laterality 06/19/2013 5:24 AM 3 5:24 AVIATION SUPPORT EQUIPMENT REPAIRER AM AVIATION SUPPORT EQUIPMENT REPAIRER Historical Provider LAB BLOOD ADD-ON Performing Organization Address City/[facility]/ZIP Code Phon e Number [facility]IES - [address], [place] [address] [place] [employer] [facility] (ABNORMAL) Glucose, POCT (06/18/2013 5:42 PM AVIATION SUPPORT EQUIPMENT REPAIRER) [facility] Method Time Signature Last Intake 1-2 hours [facility] LAB[facility]ATORIES - [place] [employer] [facility] Glucose, 168 (H) 70 - 140 [facility] POCT, B MG/DL LABORATORIES - [place] [employer] [facility] Sample Site, Capillary [facility] Blood Gas, LABORATORIES - POCT [facility] [employer] [facility] Specimen Anatomical Collection Method Collection Time Receive d Time (Source) Location / / Volume Laterality 06/18/2013 5:42 PM 3 5:42 AVIATION SUPPORT EQUIPMENT REPAIRER PM AVIATION SUPPORT EQUIPMENT REPAIRER Historical Provider LAB POCT ORDERABLES-MANUAL Performing Organization Address City/[facility]/ZIP Code Phon e Number [facility]ATORIES - [address], [place] [address] [place] [employer] [facility] (ABNORMAL) Glucose, POCT (06/18/2013 12:00 PM AVIATION SUPPORT EQUIPMENT REPAIRER) [facility] Method Time Signature Last Intake 3-4 hours [facility] Glucose, 147 (H) 70 - 140 [facility] POCT, B MG/DL LABORATORIES - [place] [employer] [facility] Sample Site, Capillary [facility] Blood Gas, LABORATORIES - POCT [facility] [employer] [facility] Specimen Anatomical Collection Method Collection Time Receive d Time (Source) Location / / Volume Laterality 06/18/2013 12:00 06/18/2013 PM AVIATION SUPPORT EQUIPMENT REPAIRER 12:00 PM AVIATION SUPPORT EQUIPMENT REPAIRER Historical Provider LAB POCT ORDERABLES-MANUAL Performing Organization Address City/State/ZIP Code Phon e Number [facility] LABORATORIES - [address], [place] [address] [place] [employer] [facility] US Abdomen Limited plus Abdomen Doppler (06/18/2013 11:38 AM AVIATION SUPPORT EQUIPMENT REPAIRER) Anatomical Region Laterality Modality Abdomen N/A Ultrasound Specimen (Source) Anatomical Collection Method Collection Time Re ceived Time Location / / Volume Laterality 06/18/2013 11:38 AM AVIATION SUPPORT EQUIPMENT REPAIRER Narrative 06/18/2013 11:46 AM AVIATION SUPPORT EQUIPMENT REPAIRER 18-Jun-2013 11:38:00 ??Exam: US Abd Lmtd with Doppler Cmpl Indications: [id number] ??[id number]; Abd. c omplete ??day 6 liver Tx ORIGINAL REPORT - 18-Jun-2013 11:46:00 US Abdomen Limited with color and spectr al Doppler analysis: Ultrasound of the Liver Transplant and A bdomen with Doppler: Post transplant day # 6 . There is no si gnificant interval change. Liver transplant:.... ??Normal echotextu re. Perihepatic fluid collections are stable. Gallbladder:...........Absent. Bile ducts:............Not dilated. Doppler:...............Hepatic arteries, splenic, portal, and hepatic veins; patent. Main portal vein velocity 130 cm/sec. Hepatic artery resistivity indices range from 0.72 to 0.75. IVC:......................Normal. Electronically signed by: ?? Evelio Roman MD [id number] 18-Jun-2013 11:46 Procedure Note Evelio Roman M.D. - 09/19/2017Fo rmatting of this note might be different from the original. 18-Jun-2013 11:38:00 Exam: US Abd Lmtd w ith Doppler Cmpl Indications: [id number]; Abd. com plete day 6 liver Tx ORIGINAL REPORT - 18-Jun-2013 11:46:00 US Abdomen Limited with color and spectr al Doppler analysis: Ultrasound of the Liver Transplant and A bdomen with Doppler: Post transplant day # 6 . There is no si gnificant interval change. Liver transplant:.... Normal echotexture . Perihepatic fluid collections are stable. Gallbladder:...........Absent. Bile ducts:............Not dilated. Doppler:...............Hepatic arteries, splenic, portal, and hepatic veins; patent. Main portal vein velocity 130 cm/sec. Hepatic artery resistivity indices range from 0.72 to 0.75. IVC:......................Normal. Electronically signed by: Evelio Roman MD [id number] 18-Jun-2013 11:46 Curt Nicholas M.D. IMG US PROCEDURES DX Chest AP or PA and Lateral 2 Views (06/18/2013 10:43 AM AVIATION SUPPORT EQUIPMENT REPAIRER) Anatomical Region Laterality Modality Chest N/A Radiographic Imaging Specimen (Source) Anatomical Collection Method Collection Time Re ceived Time Location / / Volume Laterality 06/18/2013 10:43 AM AVIATION SUPPORT EQUIPMENT REPAIRER Narrative 06/18/2013 11:31 AM AVIATION SUPPORT EQUIPMENT REPAIRER 18-Jun-2013 10:43:00 ??Exam: Chest-- 2 Views Indications: pneumonia ORIGINAL REPORT - 18-Jun-2013 11:31:00 Chest; 2 views: Since June 13, 2013, the ETT, SGC, a nd NGT have been removed. The opacity of the right hemithorax has considerably decreased, with improvement in atelectasis and pleural fluid. Tiny bilateral pleural effusions persist. Surgical drain in the RUQ. Electronically signed by: ?? Char Jang M.D. [id number] 18-Jun-2013 11:31 Procedure Note Alan Jang M.D. - 09/19/2017Fo rmatting of this note might be different from the original. 18-Jun-2013 10:43:00 Exam: Chest-- 2 Vie ws Indications: pneumonia ORIGINAL REPORT - 18-Jun-2013 11:31:00 Chest; 2 views: Since June 13, 2013, the ETT, SGC, a nd NGT have been removed. The opacity of the right hemithorax has considerably decreased, with improvement in atelectasis and pleural fluid. Tiny bilateral pleural effusions persist. Surgical drain in the RUQ. Electronically signed by: Char Jang M.D. [id number] 18-Jun-2013 11:31 Juancarlos Castro M.D. IMG DIAGNOSTIC IMAGING PROCE DURES (ABNORMAL) Glucose, POCT (06/18/2013 7:53 AM AVIATION SUPPORT EQUIPMENT REPAIRER) [facility] Method Time Signature Glucose, 172 (H) 70 - 140 [facility] POCT, B MG/DL LABORATORIES - [facility] [place] [employer] [facility] Sample Site, Capillary [facility] Blood Gas, LABORATORIES - POCT [facility] [employer] [facility] Last Intake 3-4 hours [facility] LABORATORIES - [place] [employer] [facility] Specimen Anatomical Collection Method Collection Time Receive d Time (Source) Location / / Volume Laterality 06/18/2013 7:53 AM 3 7:53 AVIATION SUPPORT EQUIPMENT REPAIRER AM AVIATION SUPPORT EQUIPMENT REPAIRER Historical Provider LAB POCT ORDERABLES-MANUAL Performing Organization Address City/[facility] Phon e Number [facility] LABORATORIES - [address] [phone] [facility] [place] [employer] [facility] (ABNORMAL) Bilirubin (06/18/2013 5:16 AM AVIATION SUPPORT EQUIPMENT REPAIRER) [facility] Method [place] Signature Bilirubin, 3.3 (H) 0.1 - 1.0 [facility] Total, S MG/DL LABORATORIES - [facility] [place] [employer] [facility] Bilirubin, 2.2 (H) 0.0 - 0.3 [facility] Direct, S MG/DL LABORATORIES - [facility] [place] [employer] [facility] Specimen Anatomical Collection Method Collection Time Receive d Time (Source) Location / / Volume Laterality 06/18/2013 5:16 AM 3 5:16 AVIATION SUPPORT EQUIPMENT REPAIRER AM AVIATION SUPPORT EQUIPMENT REPAIRER Jovi Knight M.D. LAB BLOOD ADD-ON Performing Organization Address City/State/ZIP Code Phon e Number [facility] LABORATORIES - [address] [phone] [facility] [employer] (ABNORMAL) ALT (Alanine Aminotransferase) (06/18/2013 5:16 AM AVIATION SUPPORT EQUIPMENT REPAIRER) [facility] Method [place] Signature Alanine 91 (H) 7 - 55 [facility] Aminotransferase U/L LABORATORIES - (ALT), S [facility] [employer] [facility] Specimen Anatomical Collection Method Collection Time Receive d Time (Source) Location / / Volume Laterality 06/18/2013 5:16 AM 3 5:16 AVIATION SUPPORT EQUIPMENT REPAIRER AM AVIATION SUPPORT EQUIPMENT REPAIRER Jovi Knight M.D. LAB BLOOD ADD-ON Performing Organization Address City/State/ZIP Code Phon e Number [facility]ORATORIES - [address] [phone] [facility] [employer] [facility] PT (Prothrombin Time) with INR (06/18/2013 5:16 AM AVIATION SUPPORT EQUIPMENT REPAIRER) [facility] Method Time Signature Prothrombin 13.4 9.5 - 13.8 [facility] Time, P [facility] INR 1.1 0.8 - 1.2 [facility] Specimen Anatomical Collection Method Collection Time Receive d Time (Source) Location / / Volume Laterality 06/18/2013 5:16 AM 3 5:16 AVIATION SUPPORT EQUIPMENT REPAIRER AM AVIATION SUPPORT EQUIPMENT REPAIRER Jovi Knight M.D. LAB BLOOD ADD-ON Performing Organization Address City/[facility]/ZIP Code Phon e Number [facility] - [address] [phone] [facility] [place] [employer] [facility] AST (Aspartate Aminotransferase) (06/18/2013 5:16 AM AVIATION SUPPORT EQUIPMENT REPAIRER) P athologist Signature AST, Total, S 41 8 - 48 U/L [facility] Specimen Anatomical Collection Method Collection Time Receive d Time (Source) Location / / Volume Laterality 06/18/2013 5:16 AM 3 5:16 AVIATION SUPPORT EQUIPMENT REPAIRER AM AVIATION SUPPORT EQUIPMENT REPAIRER Jovi Knight M.D. LAB BLOOD ADD-ON Performing Organization Address City/State/ZIP Code Phon e Number [facility] - [address] [phone] [facility] [employer] (ABNORMAL) Calcium, Total (06/18/2013 5:16 AM AVIATION SUPPORT EQUIPMENT REPAIRER) [facility] Method [place] Signature Calcium, 7.9 (L) 8.9 - 10.1 [facility] Total, S MG/DL [facility] Specimen Anatomical Collection Method Collection Time Receive d Time (Source) Location / / Volume Laterality 06/18/2013 5:16 AM 3 5:16 AVIATION SUPPORT EQUIPMENT REPAIRER AM AVIATION SUPPORT EQUIPMENT REPAIRER Jovi Knight M.D. LAB BLOOD ADD-ON Performing Organization Address City/[facility]/ZIP Code Phon e Number [facility] - [address] [phone] [facility] [employer] (ABNORMAL) Electrolyte (Chem 4) Panel (06/18/2013 5:16 AM AVIATION SUPPORT EQUIPMENT REPAIRER) [facility] Method [place] Signature Creatinine 1.4 (H) 0.8 - 1.3 [facility] MG/DL LABORATORIES - [facility] [employer] [facility] eGFR 52 (L) >60 [facility] Non-Black/Afric ML/MIN/BS LABORATORIES - an Monegasque A [facility] eGFR-Black/Afri >60 >60 [facility] can Monegasque ML/MIN/BS LABORATORIES - A [facility] [employer] BUN (Blood Urea 30 (H) 8 - 24 [facility] Nitrogen), S MG/DL LABORATORIES - [facility] [employer] [facility] HX Bicarbonate, 26 22 - 29 [facility] P/S MMOL/L LABORATORIES - [facility] [employer] [facility] Anion Gap 9 7 - 15 [facility] LABORATORIES - [facility] [place] [employer] [facility] Sodium, S 129 (L) 135 - 145 [facility] MMOL/L LABORATORIES - [facility] [employer] [facility] Chloride, S 94 (L) 100 - 108 [facility] MMOL/L LABORATORIES - [facility] [employer] [facility] Glucose, S 166 (H) 70 - 140 [facility] MG/DL LABORATORIES - [facility] [employer] [facility] Potassium, S 3.2 (L) 3.6 - 5.2 [facility] MMOL/L LABORATORIES - [facility] [employer] [facility] Specimen Anatomical Collection Method Collection Time Receive d Time (Source) Location / / Volume Laterality 06/18/2013 5:16 AM 3 5:16 AVIATION SUPPORT EQUIPMENT REPAIRER AM AVIATION SUPPORT EQUIPMENT REPAIRER Jovi Knight M.D. LAB BLOOD ADD-ON Performing Organization Address City/State/ZIP Code Phon e Number [facility]ORATORIES - [address] [place] [phone] [facility] [employer] Magnesium (06/18/2013 5:16 AM AVIATION SUPPORT EQUIPMENT REPAIRER) P athologist Signature Magnesium, S 1.9 1.7 - 2.3 [facility] MG/DL [facility] - [place] [employer] [facility] Specimen Anatomical Collection Method Collection Time Receive d Time (Source) Location / / Volume Laterality 06/18/2013 5:16 AM 3 5:16 AVIATION SUPPORT EQUIPMENT REPAIRER AM AVIATION SUPPORT EQUIPMENT REPAIRER Jovi Knight M.D. LAB BLOOD ADD-ON Performing Organization Address City/State/[facility] Code Phon e Number [facility] LABORATORIES - [address] [place] [phone] [facility] [employer] [facility] (ABNORMAL) Alkaline Phosphatase (06/18/2013 5:16 AM AVIATION SUPPORT EQUIPMENT REPAIRER) Patholo gist Method Time Signature Alkaline 128 (H) 45 - 115 [facility] Phosphatase, S U/L LABORATORIES - [facility] [employer] [facility] Specimen Anatomical Collection Method Collection Time Receive d Time (Source) Location / / Volume Laterality 06/18/2013 5:16 AM 12/27/201 3 5:16 AVIATION SUPPORT EQUIPMENT REPAIRER AM AVIATION SUPPORT EQUIPMENT REPAIRER Jovi Knight M.D. LAB BLOOD ADD-ON Performing Organization Address City/State/ZIP Code Phon e Number [facility]IES - [address] [phone] [facility] [employer] (ABNORMAL) Protein, Total (06/18/2013 5:16 AM AVIATION SUPPORT EQUIPMENT REPAIRER) [facility] Method Time Signature Total Protein, 4.6 (L) 6.3 - 7.9 [facility] S G/DL LABORATORIES - [facility] [employer] [facility] Specimen Anatomical Collection Method Collection Time Receive d Time (Source) Location / / Volume Laterality 06/18/2013 5:16 AM 3 5:16 AVIATION SUPPORT EQUIPMENT REPAIRER AM AVIATION SUPPORT EQUIPMENT REPAIRER Jovi Knight M.D. LAB BLOOD ADD-ON Performing Organization Address City/[facility] Phon e Number [facility]IES - [address] [phone] [facility] [employer] (ABNORMAL) CBC with Differential - No Alerts (06/18/2013 5:16 AM AVIATION SUPPORT EQUIPMENT REPAIRER) [facility] Method Time Signature Erythrocytes 2.83 (L) 4.32 - [facility] 5.72 LABORATORIES - X10(12)/L [facility] MCV 88.3 81.2 - [facility] 95.1 [place] LABORATORIES - [facility] [place] [employer] [facility] Leukocytes 5.9 3.5 - [facility] 10.5 LABORATORIES - X10(9)/L [facility] Neutrophils 4.95 1.70 - [facility] 7.00 LABORATORIES - X10(9)/L [facility] Hemoglobin 8.6 (L) 13.5 - [facility] 17.5 G/DL LABORATORIES [facility] Hematocrit 25.0 (L) 38.8 - [facility] 50.0 % LABORATORIES - [facility] [employer] [facility] RBC Distrib 15.8 (H) 11.8 - [facility] Width 15.6 % LABORATORIES - [facility] [employer] [facility] Platelet Count 81 (L) 150 - 450 [facility] X10(9)/L LABORATORIES - [facility] [employer] [facility] Lymphocytes 0.33 (L) 0.90 - [facility] 2.90 LABORATORIES - X10(9)/L [facility] Monocytes 0.54 0.30 - [facility] 0.90 LABORATORIES - X10(9)/L [facility] Eosinophils 0.07 0.05 - [facility] 0.50 LABORATORIES - X10(9)/L [facility] Basophils 0.01 0.00 - [facility] 0.30 LABORATORIES - X10(9)/L [facility] Specimen Anatomical Collection Method Collection Time Receive d Time (Source) Location / / Volume Laterality 06/18/2013 5:16 AM 3 5:16 AVIATION SUPPORT EQUIPMENT REPAIRER AM AVIATION SUPPORT EQUIPMENT REPAIRER Jovi Knight M.D. LAB BLOOD NON ADD-ON Performing Organization Address City/[facility]/ZIP Code Phon e Number [facility]ATORIES - [address] [phone] [facility] [employer] [facility] (ABNORMAL) Albumin (06/18/2013 5:16 AM AVIATION SUPPORT EQUIPMENT REPAIRER) P athologist Signature Albumin, S 2.8 (L) 3.5 - 5.0 [facility] G/DL LABORATORIES - [facility] [employer] [facility] Specimen Anatomical Collection Method Collection Time Receive d Time (Source) Location / / Volume Laterality 06/18/2013 5:16 AM 3 5:16 AVIATION SUPPORT EQUIPMENT REPAIRER AM AVIATION SUPPORT EQUIPMENT REPAIRER Jovi Knight M.D. LAB BLOOD ADD-ON Performing Organization Address City/[facility] Phon e Number [facility]IES - [address] [phone] [facility] [employer] [facility] (ABNORMAL) Glucose, POCT (06/17/2013 8:42 PM AVIATION SUPPORT EQUIPMENT REPAIRER) [facility] Method Time Signature Glucose, 166 (H) 70 - 140 [facility] POCT, B MG/DL LABORATORIES - [facility] [employer] [facility] Sample Site, Capillary [facility] Blood Gas, LABORATORIES - POCT [facility] [employer] Last Intake 3-4 hours [facility] Specimen Anatomical Collection Method Collection Time Receive d Time (Source) Location / / Volume Laterality 06/17/2013 8:42 PM 3 8:42 AVIATION SUPPORT EQUIPMENT REPAIRER PM AVIATION SUPPORT EQUIPMENT REPAIRER Historical Provider LAB POCT ORDERABLES-MANUAL Performing Organization Address City/[facility] Phon e Number [facility] [facility] - [address] [phone] [employer] [facility] (ABNORMAL) Glucose, POCT (06/17/2013 5:46 PM AVIATION SUPPORT EQUIPMENT REPAIRER) [facility] Method Time Signature Glucose, 155 (H) 70 - 140 [facility] POCT, B MG/DL LABORATORIES - [employer] [facility] Sample Site, Capillary [facility] Blood Gas, LABORATORIES - POCT [employer] [facility] Last Intake 3-4 hours [facility] Specimen Anatomical Collection Method Collection Time Receive d Time (Source) Location / / Volume Laterality 06/17/2013 5:46 PM 3 5:46 AVIATION SUPPORT EQUIPMENT REPAIRER PM AVIATION SUPPORT EQUIPMENT REPAIRER Historical Provider LAB POCT ORDERABLES-MANUAL Performing Organization Address City/[facility]/ZIP Code Phon e Number [facility] - [address] [place], [place] [address] [employer] [facility] (ABNORMAL) Glucose, POCT (06/17/2013 12:08 PM AVIATION SUPPORT EQUIPMENT REPAIRER) [facility] gist Method Time Signature Glucose, 195 (H) 70 - 140 [facility] POCT, B MG/DL LABORATORIES - [employer] [facility] Sample Site, Capillary [facility] Blood Gas, LABORATORIES - POCT [employer] [facility] Last Intake 1-2 hours [facility] Specimen Anatomical Collection Method Collection Time Receive d Time (Source) Location / / Volume Laterality 06/17/2013 12:08 06/17/2013 PM AVIATION SUPPORT EQUIPMENT REPAIRER 12:08 PM AVIATION SUPPORT EQUIPMENT REPAIRER Historical Provider LAB POCT ORDERABLES-MANUAL Performing Organization Address City/[facility]/ZIP Code Phon e Number [facility] - [address] [place], [place] [address] [employer] [facility] Glucose, POCT (06/17/2013 7:40 AM AVIATION SUPPORT EQUIPMENT REPAIRER) [facility] Method Time Signature Last Intake 3-4 hours [facility] - [employer] [facility] Glucose, 136 70 - 140 [facility] POCT, B MG/DL LABORATORIES - [employer] Sample Site, Capillary [facility] Blood Gas, LABORATORIES - POCT [employer] [facility] Specimen Anatomical Collection Method Collection Time Receive d Time (Source) Location / / Volume Laterality 06/17/2013 7:40 AM 3 7:40 AVIATION SUPPORT EQUIPMENT REPAIRER AM AVIATION SUPPORT EQUIPMENT REPAIRER Historical Provider LAB POCT ORDERABLES-MANUAL Performing Organization Address City/State/ZIP Code Phon e Number [facility] - [address] [place], [place] [address] [employer] [facility] (ABNORMAL) ALT (Alanine Aminotransferase) (06/17/2013 5:09 AM AVIATION SUPPORT EQUIPMENT REPAIRER) Component Value Ref Test Analysis Performed At [facility] Range Method Time Signature Alanine 112 (H) 7 - 55 [facility] Aminotransferase U/L LABORATORIES - (ALT), S [employer] [facility] Specimen Anatomical Collection Method Collection Time Receive d Time (Source) Location / / Volume Laterality 06/17/2013 5:09 AM 3 5:09 AVIATION SUPPORT EQUIPMENT REPAIRER AM AVIATION SUPPORT EQUIPMENT REPAIRER Janette Romano APRNN.P., D.N.P. LAB BLOOD ADD-ON Performing Organization Address City/[facility]/ZIP Code Phon e Number [facility] - [address] [phone] [employer] [facility] (ABNORMAL) AST (Aspartate Aminotransferase) (06/17/2013 5:09 AM AVIATION SUPPORT EQUIPMENT REPAIRER) Analysis Performed At Patho logist Time Signature AST, Total, S 65 (H) 8 - 48 U/L [facility] - [employer] Specimen Anatomical Collection Method Collection Time Receive d Time (Source) Location / / Volume Laterality 06/17/2013 5:09 AM 3 5:09 AVIATION SUPPORT EQUIPMENT REPAIRER AM AVIATION SUPPORT EQUIPMENT REPAIRER Arley Romano APRN.N.P., D.N.P. LAB BLOOD ADD-ON Performing Organization Address City/[facility] Phon e Number [facility] [address] [phone] [employer] [facility] Calcium, Ionized (06/17/2013 5:09 AM AVIATION SUPPORT EQUIPMENT REPAIRER) P athologist Signature Calcium, 4.89 4.80 - [facility] Ionized, S 5.70 MG/DL [facility] pH 7.43 7.32 - [facility] 7.43 [facility] - [employer] [facility] Specimen Anatomical Collection Method Collection Time Receive d Time (Source) Location / / Volume Laterality 06/17/2013 5:09 AM 3 5:09 AVIATION SUPPORT EQUIPMENT REPAIRER AM AVIATION SUPPORT EQUIPMENT REPAIRER Arley Romano APRN.N.P., D.N.P. LAB BLOOD NON ADD- ON Performing Organization Address City/[facility]/ZIP Code Phon e Number [facility] - [address] [phone] [employer] [facility] (ABNORMAL) Alkaline Phosphatase (06/17/2013 5:09 AM AVIATION SUPPORT EQUIPMENT REPAIRER) Patholo gist Method Time Signature Alkaline 121 (H) 45 - 115 [facility] Phosphatase, S U/L [facility] Specimen Anatomical Collection Method Collection Time Receive d Time (Source) Location / / Volume Laterality 06/17/2013 5:09 AM 3 5:09 AVIATION SUPPORT EQUIPMENT REPAIRER AM AVIATION SUPPORT EQUIPMENT REPAIRER Arley Romano APRN.N.P., D.N.P. LAB BLOOD ADD-ON Performing Organization Address City/[facility] Phon e Number [facility] - [address] [phone] [employer] [facility] (ABNORMAL) Bilirubin, Total (06/17/2013 5:09 AM AVIATION SUPPORT EQUIPMENT REPAIRER) [facility] Method Time Signature Bilirubin, 3.9 (H) 0.1 - 1.0 [facility] Total, S MG/DL LABORATORIES - [employer] Specimen Anatomical Collection Method Collection Time Receive d Time (Source) Location / / Volume Laterality 06/17/2013 5:09 AM 3 5:09 AVIATION SUPPORT EQUIPMENT REPAIRER AM AVIATION SUPPORT EQUIPMENT REPAIRER Authorizing Provider Result Dotty Heath APRN, C.N.P., D.N.P. LAB BLOOD ADD-ON Performing Organization Address City/[facility] Code Phon e Number [facility] - [address] [phone] [employer] [facility] (ABNORMAL) Electrolyte (Chem 4) Panel (06/17/2013 5:09 AM AVIATION SUPPORT EQUIPMENT REPAIRER) [facility] Method Time Signature HX Bicarbonate, 26 22 - 29 [facility] P/S MMOL/L LABORATORIES - [employer] Creatinine 1.6 (H) 0.8 - 1.3 [facility] MG/DL LABORATORIES - [employer] Sodium, S 130 (L) 135 - 145 [facility] MMOL/L LABORATORIES - [employer] Chloride, S 93 (L) 100 - 108 [facility] MMOL/L LABORATORIES - [employer] eGFR 45 (L) >60 [facility] Non-Black/Afric ML/MIN/BS LABORATORIES - [place] A [employer] [facility] eGFR-Black/Afri 54 (L) >60 [facility] can [place] ML/MIN/BS LABORATORIES - [facility] BUN (Blood Urea 33 (H) 8 - 24 [facility] Nitrogen), S MG/DL LAB[facility]ATORIES - [employer] [facility] Anion Gap 11 7 - 15 [facility] - [employer] [facility] Glucose, S 142 (H) 70 - 140 [facility] MG/DL LABORATORIES - [employer] [facility] Potassium, S 3.2 (L) 3.6 - 5.2 [facility] MMOL/L LABORATORIES - [employer] Specimen Anatomical Collection Method Collection Time Receive d Time (Source) Location / / Volume Laterality 06/17/2013 5:09 AM 3 5:09 AVIATION SUPPORT EQUIPMENT REPAIRER AM AVIATION SUPPORT EQUIPMENT REPAIRER Arley Romano APRN.N.P., D.N.P. LAB BLOOD ADD-ON Performing Organization Address City/[facility]/ZIP Code Phon e Number [facility] - [address] [phone] [employer] [facility] Magnesium (06/17/2013 5:09 AM AVIATION SUPPORT EQUIPMENT REPAIRER) P athologist Signature Magnesium, S 2.0 1.7 - 2.3 [facility] MG/DL [facility] Specimen Anatomical Collection Method Collection Time Receive d Time (Source) Location / / Volume Laterality 06/17/2013 5:09 AM 3 5:09 AVIATION SUPPORT EQUIPMENT REPAIRER AM AVIATION SUPPORT EQUIPMENT REPAIRER Arley Romano APRN.N.P., D.N.P. LAB BLOOD ADD-ON Performing Organization Address City/[facility]/ZIP Code Phon e Number [facility] - [address] [phone] [employer] (ABNORMAL) Phosphorus Inorganic (06/17/2013 5:09 AM AVIATION SUPPORT EQUIPMENT REPAIRER) Patholo gist Method Time Signature Phosphorus 2.0 (L) 2.5 - 4.5 [facility] (Inorganic), S MG/DL [facility] Specimen Anatomical Collection Method Collection Time Receive d Time (Source) Location / / Volume Laterality 06/17/2013 5:09 AM 3 5:09 AVIATION SUPPORT EQUIPMENT REPAIRER AM AVIATION SUPPORT EQUIPMENT REPAIRER Arley Romano APRN.N.P., D.N.P. LAB BLOOD ADD-ON Performing Organization Address City/[facility]/ZIP Code Phon e Number [facility] - [address] [phone] [employer] (ABNORMAL) Bilirubin, Direct (06/17/2013 5:09 AM AVIATION SUPPORT EQUIPMENT REPAIRER) Patholo gist Method Time Signature Bilirubin, 2.6 (H) 0.0 - 0.3 [facility] Direct, S MG/DL [facility] Specimen Anatomical Collection Method Collection Time Receive d Time (Source) Location / / Volume Laterality 06/17/2013 5:09 AM 3 5:09 AVIATION SUPPORT EQUIPMENT REPAIRER AM AVIATION SUPPORT EQUIPMENT REPAIRER Arley Romano APRN.N.P., D.N.P. LAB BLOOD ADD-ON Performing Organization Address City/State/ZIP Code Phon e Number [facility] - [address] [place], [place] [address] [employer] [facility] HX Chromosomes, Sister Chromatid Exch (06/17/2013 5:08 AM AVIATION SUPPORT EQUIPMENT REPAIRER) Specimen (Source) Anatomical Collection Method Collection Time Re ceived Time Location / / Volume Laterality 06/17/2013 5:08 AM AVIATION SUPPORT EQUIPMENT REPAIRER Narrative [facility] - [facility] - 06/17/2013 10:03 AM AVIATION SUPPORT EQUIPMENT REPAIRER [id number] 05:08 ? Chr omosomes, Sister Chromatid Exchange Requested By: Gabriella Heath RN, CONTRACT IMPLEMENTATION ANALYST ? Specimen ?Specimen ID ??LabID ? Test No. ?--- ------- ??--------- Blood ? [id number] ?? [id number] ?[id number] ? RESULT Test cancelled INTERPRETATION NO CHARGE This test was cancelled by Dr. Curt blevins because it was ordered in error. REASON FOR REFERRAL aftercare following liver transplant METHOD Culture w/PHA and BrdU Signature Luisa Joni [facility] [place] Released 17 Jun 2013 10:02 Date Ordered 17 Jun 2013 08:09 Procedure Note 10/13/2017 [id number] 05:08 Chromosomes, Sister Nurse Instructor matid Exchange Requested By: Gabriella Heath RN, CONTRACT IMPLEMENTATION ANALYST Specimen Specimen ID LabID Test No. ------- --- --------- Blood [id number] RESULT Test cancelled INTERPRETATION NO CHARGE This test was cancelled by Dr. Curt blevins because it was ordered in error. REASON FOR REFERRAL aftercare following liver transplant METHOD Culture w/PHA and BrdU Signature Luisa Quinones [facility] Date Released 17 Jun 2013 10:02 Date Ordered 17 Jun 2013 08:09 Gabriella Heath APRN, C.N.P., D.N.P. LAB HISTORICAL ORD ERS Performing Organization Address City/[facility]/ZIP Code Phon e Number [facility] - [address], [place] [address] [employer] [facility] (ABNORMAL) CBC with Differential (06/17/2013 5:08 AM AVIATION SUPPORT EQUIPMENT REPAIRER) [facility] Method Time Signature Hemoglobin 8.7 (L) 13.5 - [facility] 17.5 G/DL LABORATORIES - [employer] [facility] Hematocrit 24.7 (L) 38.8 - [facility] 50.0 % LABORATORIES - [employer] Leukocytes 8.8 3.5 - [facility] 10.5 LABORATORIES - X10(9)/L [employer] [facility] Neutrophils 7.90 (H) 1.70 - [facility] 7.00 LABORATORIES - X10(9)/L [employer] [facility] Eosinophils 0.08 0.05 - [facility] 0.50 LABORATORIES - X10(9)/L [facility] [employer] [facility] Basophils 0.00 0.00 - [facility] 0.30 LABORATORIES - X10(9)/L [facility] [employer] [facility] Erythrocytes 2.82 (L) 4.32 - [facility] 5.72 LABORATORIES - X10(12)/L [employer] [facility] MCV 87.6 81.2 - [facility] 95.1 FL LABORATORIES - [employer] RBC Distrib 15.7 (H) 11.8 - [facility] Width 15.6 % LABORATORIES - [employer] [facility] Platelet Count 73 (L) 150 - 450 [facility] X10(9)/L LABORATORIES - [employer] Lymphocytes 0.36 (L) 0.90 - [facility] 2.90 LABORATORIES - X10(9)/L [facility] [employer] [facility] Monocytes 0.50 0.30 - [facility] 0.90 LABORATORIES - X10(9)/L [facility] [employer] [facility] Specimen Anatomical Collection Method Collection Time Receive d Time (Source) Location / / Volume Laterality 06/17/2013 5:08 AM 3 5:08 AVIATION SUPPORT EQUIPMENT REPAIRER AM AVIATION SUPPORT EQUIPMENT REPAIRER Gabriella Heath APRN, C.N.P., D.N.P. LAB BLOOD ADD-ON Performing Organization Address City/State/ZIP Code Phon e Number [facility] - [address], [place] [address] [employer] [facility] Glucose, POCT (06/17/2013 4:29 AM AVIATION SUPPORT EQUIPMENT REPAIRER) [facility] gist Method Time Signature Last Intake > 4 hours [facility] Glucose, 112 70 - 140 [facility] POCT, B MG/DL LABORATORIES - [employer] [facility] Sample Site, Capillary [facility] Blood Gas, LABORATORIES - POCT [employer] [facility] Specimen Anatomical Collection Method Collection Time Receive d Time (Source) Location / / Volume Laterality 06/17/2013 4:29 AM 3 4:29 AVIATION SUPPORT EQUIPMENT REPAIRER AM AVIATION SUPPORT EQUIPMENT REPAIRER Historical Provider LAB POCT ORDERABLES-MANUAL Performing Organization Address City/State/ZIP Code Phon e Number [facility] - [address], [place] [address] [employer] [facility] (ABNORMAL) Glucose, POCT (06/16/2013 10:23 PM AVIATION SUPPORT EQUIPMENT REPAIRER) [facility] Method Time Signature Last Intake 3-4 hours [facility] Glucose, 186 (H) 70 - 140 [facility] POCT, B MG/DL LABORATORIES - [employer] [facility] Sample Site, Capillary [facility] Blood Gas, LABORATORIES - POCT [employer] [facility] Specimen Anatomical Collection Method Collection Time Receive d Time (Source) Location / / Volume Laterality 06/16/2013 10:23 06/16/2013 PM AVIATION SUPPORT EQUIPMENT REPAIRER 10:23 PM AVIATION SUPPORT EQUIPMENT REPAIRER Historical Provider LAB POCT ORDERABLES-MANUAL Performing Organization Address City/State/ZIP Code Phon e Number [facility] - [address], [place] [address] [employer] [facility] Glucose, POCT (06/16/2013 4:53 PM AVIATION SUPPORT EQUIPMENT REPAIRER) [facility] Method Time Signature Glucose, 133 70 - 140 [facility] POCT, B MG/DL LABORATORIES - [employer] [facility] Sample Site, Capillary [facility] Blood Gas, LABORATORIES - POCT [employer] [facility] Last Intake 3-4 hours [facility] Specimen Anatomical Collection Method Collection Time Receive d Time (Source) Location / / Volume Laterality 06/16/2013 4:53 PM 3 4:53 AVIATION SUPPORT EQUIPMENT REPAIRER PM AVIATION SUPPORT EQUIPMENT REPAIRER Historical Provider LAB POCT ORDERABLES-MANUAL Performing Organization Address City/State/ZIP Code Phon e Number [facility] - [address], [place] [address] [employer] [facility] Vancomycin, Trough (06/16/2013 4:04 PM AVIATION SUPPORT EQUIPMENT REPAIRER) [facility] Method Time Signature Vancomycin, 16.9 SeeComment [facility] Trough, S MCG/ML LABORATORIES - [employer] [facility] Comment: Reference Range: ? 10.0 - 20.0 (Therapeutic concentration), 15.0 - 20.0 ? (Complicated infections) ? Specimen Anatomical Collection Method Collection Time Receive d Time (Source) Location / / Volume Laterality 06/16/2013 4:04 PM 3 4:04 AVIATION SUPPORT EQUIPMENT REPAIRER PM AVIATION SUPPORT EQUIPMENT REPAIRER Historical Provider LAB BLOOD NON ADD-ON Performing Organization Address City/State/ZIP Code Phon e Number [facility] - [address] [place], [place] [address] [employer] [facility] (ABNORMAL) Calcium, Ionized (06/16/2013 11:43 AM AVIATION SUPPORT EQUIPMENT REPAIRER) [facility] Method Time Signature Calcium, 5.17 4.80 - [facility] Ionized, S 5.70 LABORATORIES - MG/DL [employer] [facility] pH 7.49 (H) 7.32 - [facility] 7.43 LABORATORIES - [employer] Specimen Anatomical Collection Method Collection Time Receive d Time (Source) Location / / Volume Laterality 06/16/2013 11:43 06/16/2013 AM AVIATION SUPPORT EQUIPMENT REPAIRER 11:43 AM AVIATION SUPPORT EQUIPMENT REPAIRER Arley Romano APRN.N.P., D.N.P. LAB BLOOD NON ADD- ON Performing Organization Address City/[facility]/ZIP Code Phon e Number [facility] - [address], [place] [address] [employer] [facility] (ABNORMAL) CBC without Differential (06/16/2013 11:43 AM AVIATION SUPPORT EQUIPMENT REPAIRER) Patholo gist Method Time Signature Hemoglobin 8.5 (L) 13.5 - [facility] 17.5 G/DL LABORATORIES - [employer] [facility] Hematocrit 23.7 (L) 38.8 - [facility] 50.0 % [facility] RBC Distrib 15.4 11.8 - [facility] Width 15.6 % [facility] - [employer] [facility] Platelet Count 55 (L) 150 - 450 [facility] X10(9)/L LABORATORIES - [employer] [facility] Leukocytes 6.3 3.5 - [facility] 10.5 LABORATORIES - X10(9)/L [employer] [facility] Erythrocytes 2.76 (L) 4.32 - [facility] 5.72 LABORATORIES - X10(12)/L [employer] [facility] MCV 85.9 81.2 - [facility] 95.1 FL LABORATORIES - [employer] [facility] Specimen Anatomical Collection Method Collection Time Receive d Time (Source) Location / / Volume Laterality 06/16/2013 11:43 06/16/2013 AM AVIATION SUPPORT EQUIPMENT REPAIRER 11:43 AM AVIATION SUPPORT EQUIPMENT REPAIRER Gabriella Heath APRN, Arley.N.P., D.N.P. LAB BLOOD ADD-ON Performing Organization Address City/[facility] Code Phon e Number [facility] - [address] [phone] [employer] [facility] Magnesium (06/16/2013 11:43 AM AVIATION SUPPORT EQUIPMENT REPAIRER) P athologist Signature Magnesium, S 2.0 1.7 - 2.3 [facility] MG/DL LABORATORIES - [employer] [facility] Specimen Anatomical Collection Method Collection Time Receive d Time (Source) Location / / Volume Laterality 06/16/2013 11:43 06/16/2013 AM AVIATION SUPPORT EQUIPMENT REPAIRER 11:43 AM AVIATION SUPPORT EQUIPMENT REPAIRER Gabriella Heath APRN, C.N.P., D.N.P. LAB BLOOD ADD-ON Performing Organization Address City/[facility] Phon e Number [facility] - [address] [phone] [employer] [facility] (ABNORMAL) Phosphorus Inorganic (06/16/2013 11:43 AM AVIATION SUPPORT EQUIPMENT REPAIRER) [facility] gist Method Time Signature Phosphorus 2.4 (L) 2.5 - 4.5 [facility] (Inorganic), S MG/DL LABORATORIES - [employer] [facility] Specimen Anatomical Collection Method Collection Time Receive d Time (Source) Location / / Volume Laterality 06/16/2013 11:43 06/16/2013 AM AVIATION SUPPORT EQUIPMENT REPAIRER 11:43 AM AVIATION SUPPORT EQUIPMENT REPAIRER Gabriella Heath APRN, C.N.P., D.N.P. LAB BLOOD ADD-ON Performing Organization Address City/[facility] Phon e Number [facility]IES - [address] [phone] [employer] [facility] (ABNORMAL) Electrolyte (Chem 4) Panel (06/16/2013 11:43 AM AVIATION SUPPORT EQUIPMENT REPAIRER) [facility] Method Time Signature Sodium, S 128 (L) 135 - 145 [facility] MMOL/L LABORATORIES [facility] Potassium, S 3.6 3.6 - 5.2 [facility] MMOL/L LABORATORIES [facility] eGFR-Black/Afri 50 (L) >60 [facility] can [place] ML/MIN/BS LABORATORIES - A [employer] BUN (Blood Urea 34 (H) 8 - 24 [facility] Nitrogen), S MG/DL [facility] Chloride, S 91 (L) 100 - 108 [facility] MMOL/L [facility] HX Bicarbonate, 26 22 - 29 [facility] P/S MMOL/L [facility] Creatinine 1.7 (H) 0.8 - 1.3 [facility] MG/DL LABORATORIES [facility] eGFR 42 (L) >60 [facility] Non-Black/Afric ML/MIN/BS LABORATORIES - an [place] A [place] [facility] Anion Gap 11 7 - 15 [facility] Glucose, S 174 (H) 70 - 140 [facility] MG/DL LABORATORIES - [place] [employer] [facility] Specimen Anatomical Collection Method Collection Time Receive d Time (Source) Location / / Volume Laterality 06/16/2013 11:43 06/16/2013 AM AVIATION SUPPORT EQUIPMENT REPAIRER 11:43 AM AVIATION SUPPORT EQUIPMENT REPAIRER Gabriella Heath APRN, C.N.P., D.N.P. LAB BLOOD ADD-ON Performing Organization Address City/[facility]/ZIP Code Phon e Number [facility]IES - [address] [phone] [place] [employer] [facility] (ABNORMAL) Glucose, POCT (06/16/2013 11:43 AM AVIATION SUPPORT EQUIPMENT REPAIRER) [facility] Method Time Signature Glucose, 168 (H) 70 - 140 [facility] POCT, B MG/DL LABORATORIES - [place] [employer] [facility] Sample Site, Capillary [facility] Blood Gas, LABORATORIES - POCT [place] [employer] [facility] Specimen Anatomical Collection Method Collection Time Receive d Time (Source) Location / / Volume Laterality 06/16/2013 11:43 06/16/2013 AM AVIATION SUPPORT EQUIPMENT REPAIRER 11:43 AM AVIATION SUPPORT EQUIPMENT REPAIRER Otoniel Grijalva P.A.-C., M.S. LAB POCT ORDERABLES-MAN UAL Performing Organization Address [facility] Code Phon e Number [facility] - [address] [phone] [place] [employer] [facility] (ABNORMAL) Electrolyte (Chem 4) Panel (06/16/2013 7:06 AM AVIATION SUPPORT EQUIPMENT REPAIRER) [facility] Method Time Signature Sodium, S 132 (L) 135 - 145 [facility] MMOL/L LABORATORIES - [place] [employer] [facility] Potassium, S 3.6 3.6 - 5.2 [facility] MMOL/L LABORATORIES - [place] [employer] [facility] Creatinine 1.8 (H) 0.8 - 1.3 [facility] MG/DL LABORATORIES - [place] [employer] [facility] eGFR 39 (L) >60 [facility] Non-Black/Afric ML/MIN/BS LABORATORIES - an [place] A [place] [employer] [facility] Anion Gap 12 7 - 15 [facility] - [place] [employer] [facility] Glucose, S 112 70 - 140 [facility] MG/DL LABORATORIES - [place] [employer] [facility] Chloride, S 94 (L) 100 - 108 [facility] MMOL/L LABORATORIES - [place] [employer] [facility] HX Bicarbonate, 26 22 - 29 [facility] P/S MMOL/L [facility] - [place] [employer] eGFR-Black/Afri 47 (L) >60 [facility] can [place] ML/MIN/BS LABORATORIES - A [place] [employer] [facility] BUN (Blood Urea 34 (H) 8 - 24 [facility] Nitrogen), S MG/DL LABORATORIES - [place] [employer] [facility] Specimen Anatomical Collection Method Collection Time Receive d Time (Source) Location / / Volume Laterality 06/16/2013 7:06 AM 3 7:06 AVIATION SUPPORT EQUIPMENT REPAIRER AM AVIATION SUPPORT EQUIPMENT REPAIRER Jaxson Calhoun M.D. LAB BLOOD ADD-ON Performing Organization Address City/[facility]/ZIP Code Phon e Number [facility] - [address] [place], [place] [address] [place] [employer] [facility] (ABNORMAL) PT (Prothrombin Time) with INR (06/16/2013 7:06 AM AVIATION SUPPORT EQUIPMENT REPAIRER) [facility] Method Time Signature Prothrombin 14.2 (H) 9.5 - [facility] Time, P 13.8 SEC [facility] INR 1.2 0.8 - 1.2 [facility] Specimen Anatomical Collection Method Collection Time Receive d Time (Source) Location / / Volume Laterality 06/16/2013 7:06 AM 3 7:06 AVIATION SUPPORT EQUIPMENT REPAIRER AM AVIATION SUPPORT EQUIPMENT REPAIRER Jaxson Calhoun M.D. LAB BLOOD ADD-ON Performing Organization Address City/[facility]/ZIP Code Phon e Number [facility] - [address] [phone] [place] [employer] [facility] (ABNORMAL) Fibrinogen (06/16/2013 7:06 AM AVIATION SUPPORT EQUIPMENT REPAIRER) [facility] Method Time Signature Fibrinogen, P 409 (H) 200 - 375 [facility] MG/DL [facility] Specimen Anatomical Collection Method Collection Time Receive d Time (Source) Location / / Volume Laterality 06/16/2013 7:06 AM 3 7:06 AVIATION SUPPORT EQUIPMENT REPAIRER AM AVIATION SUPPORT EQUIPMENT REPAIRER Jaxson Calhoun M.D. LAB BLOOD ADD-ON Performing Organization Address City/[facility] Code Phon e Number [facility] - [address] [phone] [place] [employer] [facility] (ABNORMAL) CBC without Differential (06/16/2013 7:06 AM AVIATION SUPPORT EQUIPMENT REPAIRER) [facility] Method Time Signature Hemoglobin 8.6 (L) 13.5 - [facility] 17.5 G/DL [facility] Hematocrit 23.7 (L) 38.8 - [facility] 50.0 % [facility] RBC Distrib 15.4 11.8 - [facility] Width 15.6 % [facility] Platelet Count 58 (L) 150 - 450 [facility] X10(9)/L [facility] Erythrocytes 2.77 (L) 4.32 - [facility] 5.72 LABORATORIES - X10(12)/L [place] [employer] [facility] MCV 85.6 81.2 - [facility] 95.1 [place] LABORATORIES - [place] [employer] [facility] Leukocytes 6.1 3.5 - [facility] 10.5 LABORATORIES - X10(9)/L [place] [employer] [facility] Specimen Anatomical Collection Method Collection Time Receive d Time (Source) Location / / Volume Laterality 06/16/2013 7:06 AM 3 7:06 AVIATION SUPPORT EQUIPMENT REPAIRER AM AVIATION SUPPORT EQUIPMENT REPAIRER Jaxson Calhoun M.D. LAB BLOOD ADD-ON Performing Organization Address City/State/ZIP Code Phon e Number [facility] - [address] [phone] [place] [employer] [facility] APTT (Activated Partial Thromboplastin Time) (06/16/2013 7:06 AM AVIATION SUPPORT EQUIPMENT REPAIRER) P athologist Signature APTT, P 30 28 - 38 SEC [facility]IES - [place] [employer] Specimen Anatomical Collection Method Collection Time Receive d Time (Source) Location / / Volume Laterality 06/16/2013 7:06 AM 3 7:06 AVIATION SUPPORT EQUIPMENT REPAIRER AM AVIATION SUPPORT EQUIPMENT REPAIRER Jaxson Calhoun M.D. LAB BLOOD ADD-ON Performing Organization Address City/[facility]/ZIP Code Phon e Number [facility] - [address] [phone] [place] [employer] [facility] Glucose, POCT (06/16/2013 7:05 AM AVIATION SUPPORT EQUIPMENT REPAIRER) [facility] gist Method Time Signature Glucose, 109 70 - 140 [facility] POCT, B MG/DL LABORATORIES - [place] [employer] Sample Site, Capillary [facility] Blood Gas, LABORATORIES - POCT [place] [employer] Specimen Anatomical Collection Method Collection Time Receive d Time (Source) Location / / Volume Laterality 06/16/2013 7:05 AM 3 7:05 AVIATION SUPPORT EQUIPMENT REPAIRER AM AVIATION SUPPORT EQUIPMENT REPAIRER Historical Provider LAB POCT ORDERABLES-MANUAL Performing Organization Address City/[facility]/ZIP [facility] Phon e Number [facility]IES - [address] [phone] [place] [employer] (ABNORMAL) CBC with Differential - No Alerts (06/16/2013 1:46 AM AVIATION SUPPORT EQUIPMENT REPAIRER) [facility] Method Time Signature Erythrocytes 2.77 (L) 4.32 - [facility] 5.72 LABORATORIES - X10(12)/L [place] [employer] [facility] MCV 83.4 81.2 - [facility] 95.1 FL LABORATORIES - [place] [employer] [facility] RBC Distrib 15.4 11.8 - [facility] Width 15.6 % LABORATORIES - [place] [employer] [facility] Platelet Count 56 (L) 150 - 450 [facility] X10(9)/L LABORATORIES [facility] Lymphocytes 0.25 (L) 0.90 - [facility] 2.90 LABORATORIES - X10(9)/L [facility] [place] [employer] [facility] Monocytes 0.40 0.30 - [facility] 0.90 LABORATORIES - X10(9)/L [place] [employer] [facility] Hemoglobin 8.3 (L) 13.5 - [facility] 17.5 G/DL LABORATORIES - [place] [employer] [facility] Hematocrit 23.1 (L) 38.8 - [facility] 50.0 % LABORATORIES - [place] [employer] [facility] Leukocytes 5.7 3.5 - [facility] 10.5 LABORATORIES - X10(9)/L [facility] [place] [employer] [facility] Neutrophils 5.01 1.70 - [facility] 7.00 LABORATORIES - X10(9)/L [facility] [place] [employer] [facility] Eosinophils 0.01 (L) 0.05 - [facility] 0.50 LABORATORIES - X10(9)/L [facility] [place] [employer] [facility] Basophils 0.00 0.00 - [facility] 0.30 LABORATORIES - X10(9)/L [facility] [place] [employer] [facility] Specimen Anatomical Collection Method Collection Time Receive d Time (Source) Location / / Volume Laterality 06/16/2013 1:46 AM 3 1:46 AVIATION SUPPORT EQUIPMENT REPAIRER AM AVIATION SUPPORT EQUIPMENT REPAIRER Juancarlos Castro M.D. LAB BLOOD NON ADD-ON Performing Organization Address City/[facility] Code Phon e Number [facility]ATORIES - [address] [place] [phone] [place] [employer] Phosphorus Inorganic (06/16/2013 1:46 AM AVIATION SUPPORT EQUIPMENT REPAIRER) Analysis Performed At Patho logist Time Signature Phosphorus 3.4 2.5 - 4.5 [facility] (Inorganic), S MG/DL LABORATORIES - [place] [employer] Specimen Anatomical Collection Method Collection Time Receive d Time (Source) Location / / Volume Laterality 06/16/2013 1:46 AM 3 1:46 AVIATION SUPPORT EQUIPMENT REPAIRER AM AVIATION SUPPORT EQUIPMENT REPAIRER Juancarlos Castro M.D. LAB BLOOD ADD-ON Performing Organization Address City/[facility] Phon e Number [facility]IES - [address] [place] [phone] [place] [employer] [facility] Albumin (06/16/2013 1:46 AM AVIATION SUPPORT EQUIPMENT REPAIRER) athologist Signature Albumin, S 3.5 3.5 - 5.0 [facility] G/DL [facility] Specimen Anatomical Collection Method Collection Time Receive d Time (Source) Location / / Volume Laterality 06/16/2013 1:46 AM 3 1:46 AVIATION SUPPORT EQUIPMENT REPAIRER AM AVIATION SUPPORT EQUIPMENT REPAIRER Juancarlos Castro M.D. LAB BLOOD ADD-ON Performing Organization Address City/State/[facility] Code Phon e Number [facility]IES - [address] [phone] [place] [employer] [facility] (ABNORMAL) Bilirubin (06/16/2013 1:46 AM AVIATION SUPPORT EQUIPMENT REPAIRER) [facility] gist Method Time Signature Bilirubin, 4.6 (H) 0.1 - 1.0 [facility] Total, S MG/DL [facility] Bilirubin, 3.2 (H) 0.0 - 0.3 [facility] Direct, S MG/DL [facility] Specimen Anatomical Collection Method Collection Time Receive d Time (Source) Location / / Volume Laterality 06/16/2013 1:46 AM 3 1:46 AVIATION SUPPORT EQUIPMENT REPAIRER AM AVIATION SUPPORT EQUIPMENT REPAIRER Jauncarlos Castro M.D. LAB BLOOD ADD-ON Performing Organization Address City/[facility]/ZIP Code Phon e Number [facility]IES - [address] [phone] [place] [employer] [facility] (ABNORMAL) AST (Aspartate Aminotransferase) (06/16/2013 1:46 AM AVIATION SUPPORT EQUIPMENT REPAIRER) [facility] Method Time Signature AST, Total, S 102 (H) 8 - 48 U/L [facility] Specimen Anatomical Collection Method Collection Time Receive d Time (Source) Location / / Volume Laterality 06/16/2013 1:46 AM 3 1:46 AVIATION SUPPORT EQUIPMENT REPAIRER AM AVIATION SUPPORT EQUIPMENT REPAIRER Juancarlos Castro M.D. LAB BLOOD ADD-ON Performing Organization Address City/[facility] Code Phon e Number [facility] - [address] [phone] [place] [employer] [facility] Alkaline Phosphatase (06/16/2013 1:46 AM AVIATION SUPPORT EQUIPMENT REPAIRER) athologist Signature Alkaline 91 45 - 115 [facility] Phosphatase, S U/L [facility] Specimen Anatomical Collection Method Collection Time Receive d Time (Source) Location / / Volume Laterality 06/16/2013 1:46 AM 3 1:46 AVIATION SUPPORT EQUIPMENT REPAIRER AM AVIATION SUPPORT EQUIPMENT REPAIRER Juancarlos Castro M.D. LAB BLOOD ADD-ON Performing Organization Address City/State/ZIP Code Phon e Number [facility]IES - [address] [phone] [place] [employer] [facility] (ABNORMAL) ALT (Alanine Aminotransferase) (06/16/2013 1:46 AM AVIATION SUPPORT EQUIPMENT REPAIRER) Component Value Ref Test Analysis Performed At Patholo gist Range Method Time Signature Alanine 117 (H) 7 - 55 [facility] Aminotransferase U/L LABORATORIES - (ALT), S [facility] [employer] [facility] Specimen Anatomical Collection Method Collection Time Receive d Time (Source) Location / / Volume Laterality 06/16/2013 1:46 AM 3 1:46 AVIATION SUPPORT EQUIPMENT REPAIRER AM AVIATION SUPPORT EQUIPMENT REPAIRER Juancarlos Castro M.D. LAB BLOOD ADD-ON Performing Organization Address City/[facility]/ZIP Code Phon e Number [facility]IES - [address] [phone] [place] [employer] [facility] APTT (Activated Partial Thromboplastin Time) (06/16/2013 1:46 AM AVIATION SUPPORT EQUIPMENT REPAIRER) P athologist Signature APTT, P 30 28 - 38 SEC [facility] Specimen Anatomical Collection Method Collection Time Receive d Time (Source) Location / / Volume Laterality 06/16/2013 1:46 AM 3 1:46 AVIATION SUPPORT EQUIPMENT REPAIRER AM AVIATION SUPPORT EQUIPMENT REPAIRER Juancarlos Castro M.D. LAB BLOOD ADD-ON Performing Organization Address City/State/ZIP Code Phon e Number [facility] - [address] [place] [phone] [place] [employer] [facility] Calcium, Total (06/16/2013 1:46 AM AVIATION SUPPORT EQUIPMENT REPAIRER) P athologist Signature Calcium, 9.6 8.9 - 10.1 [facility] Total, S MG/DL LABORATORIES - [place] [employer] [facility] Specimen Anatomical Collection Method Collection Time Receive d Time (Source) Location / / Volume Laterality 06/16/2013 1:46 AM 3 1:46 AVIATION SUPPORT EQUIPMENT REPAIRER AM AVIATION SUPPORT EQUIPMENT REPAIRER Juancarlos Castro M.D. LAB BLOOD ADD-ON Performing Organization Address City/State/ZIP Code Phon e Number [facility]IES - [address] [phone] [place] [employer] [facility] (ABNORMAL) Electrolyte (Chem 4) Panel (06/16/2013 1:46 AM AVIATION SUPPORT EQUIPMENT REPAIRER) [facility] Signature Sodium, S 133 (L) 135 - 145 [facility] MMOL/L [facility] Potassium, S 3.3 (L) 3.6 - 5.2 [facility] MMOL/L [facility] Creatinine 1.8 (H) 0.8 - 1.3 [facility] MG/DL LABORATORIES [facility] eGFR 39 (L) >60 [facility] Non-Black/Afric ML/MIN/BS LABORATORIES - [place] A [employer] [place] [employer] [facility] eGFR-Black/Afri 47 (L) >60 [facility] can [place] ML/MIN/BS LABORATORIES - [facility] BUN (Blood Urea 36 (H) 8 - 24 [facility] Nitrogen), S MG/DL [facility] Chloride, S 95 (L) 100 - 108 [facility] MMOL/L [facility] HX Bicarbonate, 25 22 - 29 [facility] P/S MMOL/L [facility] Anion Gap 13 7 - 15 [facility] Glucose, S 143 (H) 70 - 140 [facility] MG/DL LABORATORIES - [place] [employer] [facility] Specimen Anatomical Collection Method Collection Time Receive d Time (Source) Location / / Volume Laterality 06/16/2013 1:46 AM 3 1:46 AVIATION SUPPORT EQUIPMENT REPAIRER AM AVIATION SUPPORT EQUIPMENT REPAIRER Juancarlos Castro M.D. LAB BLOOD ADD-ON Performing Organization Address City/[facility]/ZIP Code Phon e Number [facility]IES - [address] [phone] [place] [employer] [facility] (ABNORMAL) PT (Prothrombin Time) with INR (06/16/2013 1:46 AM AVIATION SUPPORT EQUIPMENT REPAIRER) [facility] Time Signature Prothrombin 14.5 (H) 9.5 - [facility] Time, P 13.8 SEC LABORATORIES [facility] INR 1.2 0.8 - 1.2 [facility] Specimen Anatomical Collection Method Collection Time Receive d Time (Source) Location / / Volume Laterality 06/16/2013 1:46 AM 3 1:46 AVIATION SUPPORT EQUIPMENT REPAIRER AM AVIATION SUPPORT EQUIPMENT REPAIRER Juancarlos Castro M.D. LAB BLOOD ADD-ON Performing Organization Address City/[facility]/ZIP Code Phon e Number [facility]IES - [address] [phone] [place] [employer] [facility] Fibrinogen (06/15/2013 11:31 PM AVIATION SUPPORT EQUIPMENT REPAIRER) athologist [facility] Fibrinogen, P 368 200 - 375 [facility] MG/DL [facility] Specimen Anatomical Collection Method Collection Time Receive d Time (Source) Location / / Volume Laterality 06/15/2013 11:31 06/15/2013 PM AVIATION SUPPORT EQUIPMENT REPAIRER 11:31 PM AVIATION SUPPORT EQUIPMENT REPAIRER Jaxson Calhoun M.D. LAB BLOOD ADD-ON Performing Organization Address City/[facility] Phon e Number [facility]ATORIES - [address] [place] [phone] [place] [employer] [facility] APTT (Activated Partial Thromboplastin Time) (06/15/2013 11:31 PM AVIATION SUPPORT EQUIPMENT REPAIRER) [facility] AP[facility], P 31 28 - 38 SEC [facility] Specimen Anatomical Collection Method Collection Time Receive d Time (Source) Location / / Volume Laterality 06/15/2013 11:31 06/15/2013 PM AVIATION SUPPORT EQUIPMENT REPAIRER 11:31 PM AVIATION SUPPORT EQUIPMENT REPAIRER Jaxson Calhoun M.D. LAB BLOOD ADD-ON Performing Organization Address City/State/[facility] Code Phon e Number [facility]IES - [address] [place] [phone] [place] [employer] [facility] (ABNORMAL) CBC without Differential (06/15/2013 11:31 PM AVIATION SUPPORT EQUIPMENT REPAIRER) [facility] Method Time Signature Hemoglobin 8.3 (L) 13.5 - [facility] 17.5 G/DL [facility] Hematocrit 23.3 (L) 38.8 - [facility] 50.0 % [facility] RBC Distrib 15.6 11.8 - [facility] Width 15.6 % [facility] Platelet Count 57 (L) 150 - 450 [facility] X10(9)/L [facility] Erythrocytes 2.78 (L) 4.32 - [facility] 5.72 LABORATORIES - X10(12)/L [facility] [employer] [facility] MCV 83.8 81.2 - [facility] 95.1 FL [facility] Leukocytes 6.1 3.5 - [facility] 10.5 LABORATORIES - X10(9)/L [facility] [employer] [facility] Specimen Anatomical Collection Method Collection Time Receive d Time (Source) Location / / Volume Laterality 06/15/2013 11:31 06/15/2013 PM AVIATION SUPPORT EQUIPMENT REPAIRER 11:31 PM AVIATION SUPPORT EQUIPMENT REPAIRER Jaxson Calhoun M.D. LAB BLOOD ADD-ON Performing Organization Address City/[facility]/ZIP Code Phon e Number [facility] - [address] (ABNORMAL) PT (Prothrombin Time) with INR (06/15/2013 11:31 PM AVIATION SUPPORT EQUIPMENT REPAIRER) [facility] Method Time Signature Prothrombin 14.2 (H) 9.5 - [facility] Time, P 13.8 SEC [facility] INR 1.2 0.8 - 1.2 [facility] Specimen Anatomical Collection Method Collection Time Receive d Time (Source) Location / / Volume Laterality 06/15/2013 11:31 06/15/2013 PM AVIATION SUPPORT EQUIPMENT REPAIRER 11:31 PM AVIATION SUPPORT EQUIPMENT REPAIRER Jaxson Calhoun M.D. LAB BLOOD ADD-ON Performing Organization Address City/[facility]/ZIP Code Phon e Number [facility] - [address] [place] [phone] [employer] [place] [employer] [facility] (ABNORMAL) Glucose, POCT (06/15/2013 9:27 PM AVIATION SUPPORT EQUIPMENT REPAIRER) [facility] Method Time Signature Glucose, 171 (H) 70 - 140 [facility] POCT, B MG/DL LABORATORIES - [facility] [place] [employer] [facility] Sample Site, Capillary [facility] Blood Gas, LABORATORIES - POCT [employer] [facility] Specimen Anatomical Collection Method Collection Time Receive d Time (Source) Location / / Volume Laterality 06/15/2013 9:27 PM 3 9:27 AVIATION SUPPORT EQUIPMENT REPAIRER PM AVIATION SUPPORT EQUIPMENT REPAIRER Historical Provider LAB POCT ORDERABLES-MANUAL Performing Organization Address City/[facility]/ZIP Code Phon e Number [facility] - [address] [place] [address] [employer] [place] [employer] [facility] Prepare fresh frozen plasma (06/15/2013 8:31 PM AVIATION SUPPORT EQUIPMENT REPAIRER) Analysis Performed At [facility] logist Time Signature HXFFP # UNITS 2 [facility] TRANSFUSED [facility] HXFFP UNIT INFO FFP [facility] Comment: Unit Blood Type O Pos Unit Number [id number] Component Type Thawed PLASMA Issue Date/Time [id number] Unit Blood Type O Pos Unit Number [id number] Component Type Thawed PLASMA Issue Date/Time [id number] Specimen (Source) Anatomical Collection Method Collection Time Re ceived Time Location / / Volume Laterality 06/15/2013 8:31 PM AVIATION SUPPORT EQUIPMENT REPAIRER Historical Provider BLOOD BANK PRODUCT ORDERABLE S Performing Organization Address City/State/ZIP Code Phon e Number [facility] LABORATORIES - [address] [place] [phone] [place] [employer] [facility] [facility] (ABNORMAL) Thromboelastograph, Kaolin, Blood (06/15/2013 7:33 PM AVIATION SUPPORT EQUIPMENT REPAIRER) [facility] Method Time Signature R Time 6.4 4.0 - 9.0 [facility] MIN [facility] K Time 1.8 1.0 - 1.8 [facility] MIN [facility] R + K 8.2 4.9 - 10.8 [facility] MIN [facility] Angle 64.9 64.0 - 78.1 [facility] DEGREES [facility] Maximum 55.2 (L) 57.1 - 72.6 [facility] Amplitude MM [facility] Ly30 4.6 0.0 - 4.8 % [facility] Specimen Anatomical Collection Method Collection Time Receive d Time (Source) Location / / Volume Laterality 06/15/2013 7:33 PM 3 7:33 AVIATION SUPPORT EQUIPMENT REPAIRER PM AVIATION SUPPORT EQUIPMENT REPAIRER Jaxson Calhoun M.D. LAB BLOOD NON ADD-ON Performing Organization Address City/State/ZIP Code Phon e Number [facility] - [address] PT (Prothrombin Time) with INR (06/15/2013 7:31 PM AVIATION SUPPORT EQUIPMENT REPAIRER) [facility] Method Time Signature Prothrombin 13.1 9.5 - 13.8 [facility] Time, P SEC [facility] INR 1.2 0.8 - 1.2 [facility] Specimen Anatomical Collection Method Collection Time Receive d Time (Source) Location / / Volume Laterality 06/15/2013 7:31 PM 3 7:31 AVIATION SUPPORT EQUIPMENT REPAIRER PM AVIATION SUPPORT EQUIPMENT REPAIRER Historical Provider LAB BLOOD ADD-ON Performing Organization Address City/State/ZIP Code Phon e Number [facility] - [address] [place] [phone] [employer] [facility] Fibrinogen (06/15/2013 7:31 PM AVIATION SUPPORT EQUIPMENT REPAIRER) P athologist Signature Fibrinogen, P 375 200 - 375 [facility] MG/DL [facility] Specimen Anatomical Collection Method Collection Time Receive d Time (Source) Location / / Volume Laterality 06/15/2013 7:31 PM 3 7:31 AVIATION SUPPORT EQUIPMENT REPAIRER PM AVIATION SUPPORT EQUIPMENT REPAIRER Historical Provider LAB BLOOD ADD-ON Performing Organization Address City/[facility] Code Phon e Number [facility] - [address] [place] [phone] [employer] [facility] [facility] (ABNORMAL) Blood Gas with Coox, Arterial (06/15/2013 7:20 PM AVIATION SUPPORT EQUIPMENT REPAIRER) Patholo gist Method Time Signature Arterial L-Radial [facility] Sample Site [facility] FIO2 0.21 .21=AIR [facility] pCO2 35 35 - 45 [facility] MM HG [facility] pH 7.46 (H) 7.35 - [facility] 7.45 PH [facility] Base Excess 1 -2 - 2 [facility] MMOL/L [facility] HCO3 24 22 - 26 [facility] MMOL/L [facility] COHb 2.5 <3.0 % [facility] MetHb 1.1 <1.6 % [facility] Spont. 20 [facility] breaths/min [facility] pO2 69 (L) 80 - 100 [facility] MM HG [facility] Hb 8.1 (L) 13.5 - [facility] 17.5 G/DL [facility] O2Hb 91.8 (L) 94.0 - [facility] 98.0 % [facility] CtO2 10.5 (L) 21.0 - [facility] 23.0 VOL LABORATORIES - % [employer] [facility] [employer] [facility] Specimen Anatomical Collection Method Collection Time Receive d Time (Source) Location / / Volume Laterality 06/15/2013 7:20 PM 3 7:20 AVIATION SUPPORT EQUIPMENT REPAIRER PM AVIATION SUPPORT EQUIPMENT REPAIRER Historical Provider LAB BLOOD NON ADD-ON Performing Organization Address City/[facility]/ZIP Code Phon e Number [facility] - [address] [place] [phone] [employer] [facility] [facility] Prepare Red Blood Cells (06/15/2013 7:10 PM AVIATION SUPPORT EQUIPMENT REPAIRER) Analysis Performed At Patho logist Time Signature HXRBC # UNITS 1 [facility] TRANSFUSED [facility] HXRBC UNIT INFO RBC [facility] Comment: Unit Blood Type O Pos Unit Number [id number] Component Type Red Blood Cells - -3 Le ukoreduced Issue Date/Time [id number] Specimen (Source) Anatomical Collection Method Collection Time Re ceived Time Location / / Volume Laterality 06/15/2013 7:10 PM AVIATION SUPPORT EQUIPMENT REPAIRER Historical Provider BLOOD BANK PRODUCT ORDERABLE S Performing Organization Address City/[facility]/ZIP Code Phon e Number [facility] - [address] [place] [phone] [employer] [facility] Prepare platelets (06/15/2013 7:05 PM AVIATION SUPPORT EQUIPMENT REPAIRER) [facility] Signature HXPLT # UNITS 1 [facility] TRANSFUSED LABORATORIES - [employer] [facility] [facility] HXPLATELETS UNIT PLT [facility] INFO LABORATORIES [facility] Comment: Unit Blood Type O Pos Unit Number [id number] Component Type Platelets, Apheresis Leuk oreduced, Irradiated Issue Date/Time [id number] Specimen (Source) Anatomical Collection Method Collection Time Re ceived Time Location / / Volume Laterality 06/15/2013 7:05 PM AVIATION SUPPORT EQUIPMENT REPAIRER Historical Provider BLOOD BANK PRODUCT ORDERABLE S Performing Organization Address City/[facility]/ZIP Code Phon e Number [facility] - [address] [place] [phone] [employer] [facility] [facility] (ABNORMAL) Glucose, POCT (06/15/2013 5:47 PM AVIATION SUPPORT EQUIPMENT REPAIRER) [facility] Signature Glucose, 150 (H) 70 - 140 [facility] POCT, B MG/DL LABORATORIES - [employer] [facility] Sample Site, Capillary [facility] Blood Gas, LABORATORIES - POCT [employer] [facility] [employer] [facility] Specimen Anatomical Collection Method Collection Time Receive d Time (Source) Location / / Volume Laterality 06/15/2013 5:47 PM 3 5:47 AVIATION SUPPORT EQUIPMENT REPAIRER PM AVIATION SUPPORT EQUIPMENT REPAIRER Historical Provider LAB POCT ORDERABLES-MANUAL Performing Organization Address City/[facility]/ZIP Code Phon e Number [facility] - [address] [place] [phone] [employer] [facility] [employer] [facility] PT (Prothrombin Time) with INR (06/15/2013 5:47 PM AVIATION SUPPORT EQUIPMENT REPAIRER) [facility] Method [place] Signature Prothrombin 13.6 9.5 - 13.8 [facility] Time, P SEC [facility] INR 1.2 0.8 - 1.2 [facility] Specimen Anatomical Collection Method Collection Time Receive d Time (Source) Location / / Volume Laterality 06/15/2013 5:47 PM 3 5:47 AVIATION SUPPORT EQUIPMENT REPAIRER PM AVIATION SUPPORT EQUIPMENT REPAIRER Emeka Ram.S. LAB BLOOD ADD-ON Performing Organization Address City/[facility]/ZIP Code Phon e Number [facility] - [address] [place] [phone] [employer] [facility] [facility] Fibrinogen (06/15/2013 5:47 PM AVIATION SUPPORT EQUIPMENT REPAIRER) P athologist Signature Fibrinogen, P 354 200 - 375 [facility] MG/DL [facility] Specimen Anatomical Collection Method Collection Time Receive d Time (Source) Location / / Volume Laterality 06/15/2013 5:47 PM 3 5:47 AVIATION SUPPORT EQUIPMENT REPAIRER PM AVIATION SUPPORT EQUIPMENT REPAIRER Emeka RocaSDemetrius LAB BLOOD ADD-ON Performing Organization Address City/[facility]/ZIP Code Phon e Number [facility] - [address] [place] [phone] [employer] [facility] APTT (Activated Partial Thromboplastin Time) (06/15/2013 5:47 PM AVIATION SUPPORT EQUIPMENT REPAIRER) athologist Signature APTT, P 30 28 - 38 SEC [facility] Specimen Anatomical Collection Method Collection Time Receive d Time (Source) Location / / Volume Laterality 06/15/2013 5:47 PM 3 5:47 AVIATION SUPPORT EQUIPMENT REPAIRER PM AVIATION SUPPORT EQUIPMENT REPAIRER Emeka RocaS. LAB BLOOD ADD-ON Performing Organization Address City/[facility] Phon e Number [facility] - [address] [place] [phone] [employer] [facility] [facility] (ABNORMAL) CBC without Differential (06/15/2013 5:47 PM AVIATION SUPPORT EQUIPMENT REPAIRER) [facility] gist Method Time Signature Hemoglobin 7.8 (L) 13.5 - [facility] 17.5 G/DL [facility] Hematocrit 22.2 (L) 38.8 - [facility] 50.0 % [facility] RBC Distrib 14.9 11.8 - [facility] Width 15.6 % [facility] Platelet Count 50 (L) 150 - 450 [facility] X10(9)/L [facility] Erythrocytes 2.58 (L) 4.32 - [facility] 5.72 LABORATORIES - X10(12)/L [employer] [facility] [facility] MCV 86.0 81.2 - [facility] 95.1 FL [facility] Leukocytes 6.8 3.5 - [facility] 10.5 LABORATORIES - X10(9)/L [employer] [facility] Specimen Anatomical Collection Method Collection Time Receive d Time (Source) Location / / Volume Laterality 06/15/2013 5:47 PM 3 5:47 AVIATION SUPPORT EQUIPMENT REPAIRER PM AVIATION SUPPORT EQUIPMENT REPAIRER Emeka CottrellB.S. LAB BLOOD ADD-ON Performing Organization Address City/[facility] Phon e Number [facility] - [address] [place] [phone] [employer] [facility] [facility] (ABNORMAL) Thromboelastograph, Kaolin, Blood (06/15/2013 5:43 PM AVIATION SUPPORT EQUIPMENT REPAIRER) Patholo gist Method Time Signature R Time 7.7 4.0 - 9.0 [facility] K Time 2.5 (H) 1.0 - 1.8 [facility] Maximum 58.4 57.1 - 72.6 [facility] Amplitude MM [facility] Ly30 0.7 0.0 - 4.8 % [facility] R + K 10.2 4.9 - 10.8 [facility] Angle 56.6 (L) 64.0 - 78.1 [facility] DEGREES [facility] Specimen Anatomical Collection Method Collection Time Receive d Time (Source) Location / / Volume Laterality 06/15/2013 5:43 PM 3 5:43 AVIATION SUPPORT EQUIPMENT REPAIRER PM AVIATION SUPPORT EQUIPMENT REPAIRER Emeka CottrellB.S. LAB BLOOD NON ADD-ON Performing Organization Address City/[facility] Code Phon e Number [facility] - [address] [place] [phone] [employer] [facility] [facility] Prepare fresh frozen plasma (06/15/2013 3:57 PM AVIATION SUPPORT EQUIPMENT REPAIRER) Analysis Performed At Patho logist Time Signature HXFFP # UNITS 3 [facility] TRANSFUSED [facility] HXFFP UNIT INFO FFP [facility] Comment: Unit Blood Type O Pos Unit Number [id number] Component Type Thawed PLASMA Issue Date/Time [id number] Unit Blood Type O Pos Unit Number [id number] Component Type Thawed PLASMA Issue Date/Time [id number] Unit Blood Type O Neg Unit Number [id number] Component Type Thawed PLASMA Issue Date/Time [id number] Specimen (Source) Anatomical Collection Method Collection Time Re ceived Time Location / / Volume Laterality 06/15/2013 3:57 PM AVIATION SUPPORT EQUIPMENT REPAIRER Historical Provider BLOOD BANK PRODUCT ORDERABLE S Performing Organization Address City/State/ZIP Code Phon e Number [facility] - [address] [place], [place] [address] [employer] [facility] US Abdomen Limited plus Abdomen Doppler (06/15/2013 3:56 PM AVIATION SUPPORT EQUIPMENT REPAIRER) Anatomical Region Laterality Modality Abdomen N/A Ultrasound Specimen (Source) Anatomical Collection Method Collection Time Re ceived Time Location / / Volume Laterality 06/15/2013 3:56 PM AVIATION SUPPORT EQUIPMENT REPAIRER Narrative 06/15/2013 4:25 PM AVIATION SUPPORT EQUIPMENT REPAIRER 15-Jun-2013 15:56:00 ??Exam: US Abd Lmtd with Doppler Cmpl Indications: Liver Transplant Complicati on h/o Portal vein thrombosis [id number] stat port ORIGINAL REPORT - 15-Jun-2013 16:25:00 Ultrasound of the Liver Transplant and A bdomen with Doppler: Compared to prior study of 06/14/2013. ? ? Liver transplant:.... ??Heterogeneous ec hotexture. Three parahepatic post operative hematomas. Two new hematomas are seen on today's study, the one located at the liver hilum which measure 3.7 x 3.6 x 7 .3 cm, and in located anterior to the ri ght hepatic lobe measures 7.5 x 4.6 x 7.3 cm. Gallbladder:...........Absent. Bile ducts:............Not dilated. Doppler:...............Hepatic arteries, splenic, portal, and hepatic veins; patent. Main portal vein velocity measures 137 cm/sec, slightly decreased since previous study. Increasing left hepatic and m ain hepatic arteries velocities, with MH A measuring 185 cm/sec. Stable resistivity indices range 0.61 to 0.71. Previously seen nonocclusive thrombus within the left portal vein is not visualized today. IVC:......................Normal. Ascites is present in the lower abdomen. Right pleural effusion. Electronically signed by: ?? Evelio Roman MD [id number] 15-Jun-2013 16:25 Procedure Note Evelio Roman M.D. - 09/19/2017Fo rmatting of this note might be different from the original. 15-Jun-2013 15:56:00 Exam: US Abd Lmtd w ith Doppler Cmpl Indications: Liver Transplant Complicati on h/o Portal vein thrombosis [id number] stat port ORIGINAL REPORT - 15-Jun-2013 16:25:00 Ultrasound of the Liver Transplant and A bdomen with Doppler: Compared to prior study of 06/14/2013. Liver transplant:.... Heterogeneous echo texture. Three parahepatic post operative hematomas. Two new hematomas are seen on today's study, the one located at the liver hilum which measure 3.7 x 3.6 x 7.3 cm, and in located anterior to the right hepatic lo be measures 7.5 x 4.6 x 7.3 cm. Gallbladder:...........Absent. Bile ducts:............Not dilated. Doppler:...............Hepatic arteries, splenic, portal, and hepatic veins; patent. Main portal vein velocity measures 137 cm/sec, slightly decreased since previous study. Increasing left hepatic and main hepatic arteries velocities, with MHA measuring 185 cm/sec. Stable resistivity indices range 0.61 to 0.71. Previously seen nonocclusive thrombus within the left portal vein is not visualized today. IVC:......................Normal. Ascites is present in the lower abdomen. Right pleural effusion. Electronically signed by: Evelio Roman MD [id number] 15-Jun-2013 16:25 Tomeka HEREDIA US PROCEDURES Prepare platelets (06/15/2013 3:25 PM AVIATION SUPPORT EQUIPMENT REPAIRER) [facility] Method Time Signature HXPLT # UNITS 1 [facility] TRANSFUSED LABORATORIES [facility] HXPLATELETS UNIT PLT [facility] INFO [facility] Comment: Unit Blood Type A Pos Unit Number [id number] Component Type Platelets, Apheresis Leuk oreduced, Irradiated Issue Date/Time [id number] Specimen (Source) Anatomical Collection Method Collection Time Re ceived Time Location / / Volume Laterality 06/15/2013 3:25 PM AVIATION SUPPORT EQUIPMENT REPAIRER Historical Provider BLOOD BANK PRODUCT ORDERABLE S Performing Organization Address City/[facility]/ZIP Code Phon e Number [facility] - [address] [place] [phone] [employer] [facility] [employer] Prepare Red Blood Cells (06/15/2013 3:25 PM AVIATION SUPPORT EQUIPMENT REPAIRER) Analysis Performed At Patho logist Time Signature HXRBC # UNITS 2 [facility] TRANSFUSED [facility] HXRBC UNIT INFO RBC [facility] Comment: Unit Blood Type O Pos Unit Number [id number] Component Type Red Blood Cells - -3 Le ukoreduced Issue Date/Time [id number] Unit Blood Type O Pos Unit Number [id number] Component Type Red Blood Cells - -3 Le ukoreduced Issue Date/Time [id number] Specimen (Source) Anatomical Collection Method Collection Time Re ceived Time Location / / Volume Laterality 06/15/2013 3:25 PM AVIATION SUPPORT EQUIPMENT REPAIRER Historical Provider BLOOD BANK PRODUCT ORDERABLE S Performing Organization Address [facility] Phon e Number [facility] - [address] [phone] [employer] [facility] [facility] Thromboelastograph, Kaolin, Blood (06/15/2013 3:05 PM AVIATION SUPPORT EQUIPMENT REPAIRER) P athologist Signature R + K . MIN [facility] Comment: No clotting detected Angle . [facility] Comment: No clotting detected R Time . MIN [facility] Comment: No clotting detected K Time . MIN [facility] Comment: No clotting detected Maximum Amplitude . MM [facility] Comment: No clotting detected Ly30 . % [facility] Comment: No clotting detected Specimen Anatomical Collection Method Collection Time Receive d Time (Source) Location / / Volume Laterality 06/15/2013 3:05 PM 3 3:05 AVIATION SUPPORT EQUIPMENT REPAIRER PM AVIATION SUPPORT EQUIPMENT REPAIRER Earl Barron LAB BLOOD NON ADD-ON Performing Organization Address City/[facility]/ZIP Code Phon e Number [facility] - [address] [phone] [employer] [facility] [facility] (ABNORMAL) CBC without Differential (06/15/2013 3:02 PM AVIATION SUPPORT EQUIPMENT REPAIRER) [facility] Method Time Signature Hemoglobin 7.1 (L) 13.5 - [facility] 17.5 G/DL [facility] Hematocrit 19.8 (L) 38.8 - [facility] 50.0 % LABORATORIES - [employer] [facility] Leukocytes 8.2 3.5 - [facility] 10.5 LABORATORIES - X10(9)/L [employer] [facility] Erythrocytes 2.40 (L) 4.32 - [facility] 5.72 LABORATORIES - X10(12)/L [employer] [facility] [employer] MCV 82.5 81.2 - [facility] 95.1 FL [facility] RBC Distrib 15.1 11.8 - [facility] Width 15.6 % [facility] Platelet Count 49 (L) 150 - 450 [facility] X10(9)/L [facility] - [employer] [facility] [facility] Specimen Anatomical Collection Method Collection Time Receive d Time (Source) Location / / Volume Laterality 06/15/2013 3:02 PM 3 3:02 AVIATION SUPPORT EQUIPMENT REPAIRER PM AVIATION SUPPORT EQUIPMENT REPAIRER Historical Provider LAB BLOOD ADD-ON Performing Organization Address City/State/ZIP Code Phon e Number [facility] - [address] [phone] [employer] [facility] [employer] Fibrinogen (06/15/2013 2:43 PM AVIATION SUPPORT EQUIPMENT REPAIRER) P athologist Signature Fibrinogen, P 312 200 - 375 [facility] MG/DL [facility] Specimen Anatomical Collection Method Collection Time Receive d Time (Source) Location / / Volume Laterality 06/15/2013 2:43 PM 3 2:43 AVIATION SUPPORT EQUIPMENT REPAIRER PM AVIATION SUPPORT EQUIPMENT REPAIRER Earl Barron LAB BLOOD ADD-ON Performing Organization Address City/State/ZIP Code Phon e Number [facility] - [address] [address] [employer] [facility] (ABNORMAL) PT (Prothrombin Time) with INR (06/15/2013 2:43 PM AVIATION SUPPORT EQUIPMENT REPAIRER) [facility] Method Time Signature Prothrombin 14.8 (H) 9.5 - [facility] Time, P 13.8 SEC LABORATORIES [facility] INR 1.3 0.8 - 1.2 [facility] Specimen Anatomical Collection Method Collection Time Receive d Time (Source) Location / / Volume Laterality 06/15/2013 2:43 PM 3 2:43 AVIATION SUPPORT EQUIPMENT REPAIRER PM AVIATION SUPPORT EQUIPMENT REPAIRER Earl Barron LAB BLOOD ADD-ON Performing Organization Address City/[facility]/ZIP Code Phon e Number [facility] - [address] [place] [phone] [employer] [facility] APTT (Activated Partial Thromboplastin Time) (06/15/2013 2:43 PM AVIATION SUPPORT EQUIPMENT REPAIRER) P athologist Signature APTT, P 33 28 - 38 SEC [facility] Specimen Anatomical Collection Method Collection Time Receive d Time (Source) Location / / Volume Laterality 06/15/2013 2:43 PM 3 2:43 AVIATION SUPPORT EQUIPMENT REPAIRER PM AVIATION SUPPORT EQUIPMENT REPAIRER Historical Provider LAB BLOOD ADD-ON Performing Organization Address City/[facility] Phon e Number [facility] - [address] [phone] [employer] [facility] [employer] [facility] Lactate (06/15/2013 1:19 PM AVIATION SUPPORT EQUIPMENT REPAIRER) P athologist Signature Lactate, P 1.3 0.6 - 2.3 [facility] MMOL/L [facility] Specimen Anatomical Collection Method Collection Time Receive d Time (Source) Location / / Volume Laterality 06/15/2013 1:19 PM 3 1:19 AVIATION SUPPORT EQUIPMENT REPAIRER PM AVIATION SUPPORT EQUIPMENT REPAIRER Historical Provider LAB BLOOD NON ADD-ON Performing Organization Address City/[facility]/ZIP Code Phon e Number [facility] - [address] [phone] [employer] [facility] [employer] [facility] [facility] Phosphorus Inorganic (06/15/2013 1:19 PM AVIATION SUPPORT EQUIPMENT REPAIRER) Analysis Performed At Patho logist Time Signature Phosphorus 2.7 2.5 - 4.5 [facility] (Inorganic), S MG/DL [facility] Specimen Anatomical Collection Method Collection Time Receive d Time (Source) Location / / Volume Laterality 06/15/2013 1:19 PM 3 1:19 AVIATION SUPPORT EQUIPMENT REPAIRER PM AVIATION SUPPORT EQUIPMENT REPAIRER Historical Provider LAB BLOOD ADD-ON Performing Organization Address City/[facility]/ZIP [facility] Phon e Number [facility]IES - [address] [phone] [employer] [facility] [employer] [facility] [facility] Magnesium (06/15/2013 1:19 PM AVIATION SUPPORT EQUIPMENT REPAIRER) athologist Signature Magnesium, S 1.9 1.7 - 2.3 [facility] MG/DL [facility] Specimen Anatomical Collection Method Collection Time Receive d Time (Source) Location / / Volume Laterality 06/15/2013 1:19 PM 3 1:19 AVIATION SUPPORT EQUIPMENT REPAIRER PM AVIATION SUPPORT EQUIPMENT REPAIRER Historical Provider LAB BLOOD ADD-ON Performing Organization Address City/[facility] Phon e Number [facility]IES - [address] [place], [place] [address] [employer] [facility] [employer] Antibody Screen, RBC (06/15/2013 1:18 PM AVIATION SUPPORT EQUIPMENT REPAIRER) [facility] gist Method Time Signature Antibody Negative [facility] Screen [facility] Specimen (Source) Anatomical Collection Method Collection Time Re ceived Time Location / / Volume Laterality 06/15/2013 1:18 PM AVIATION SUPPORT EQUIPMENT REPAIRER Historical Provider LAB BLOOD BANK TEST ORDERABL ES Performing Organization Address City/[facility] Phon e Number [facility]ATORIES - [address] [place], [place] [address] [employer] [facility] ABORh, RBC (06/15/2013 1:18 PM AVIATION SUPPORT EQUIPMENT REPAIRER) athologist Signature HXABO/RH BLOOD O POS [facility] TYPE [facility] Specimen (Source) Anatomical Collection Method Collection Time Re ceived Time Location / / Volume Laterality 06/15/2013 1:18 PM AVIATION SUPPORT EQUIPMENT REPAIRER Historical Provider LAB BLOOD BANK TEST ORDERABL ES Performing Organization Address [facility] Phon e Number [facility]IES - [address] [place], [place] [address] [employer] [facility] [employer] [facility] (ABNORMAL) CBC without Differential (06/15/2013 1:13 PM AVIATION SUPPORT EQUIPMENT REPAIRER) athologist Signature Hemoglobin 5.9 (<) 13.5 - [facility] 17.5 G/DL [facility] Comment: Rechecked Hematocrit 16.8 (L) 38.8 - 50.0 % [facility] LAB ORATORIES - [facility] S RBC Distrib Width 15.5 11.8 - 15.6 % [facility] - [facility] S Platelet Count 34 (<) 150 - 450 X10(9)/L [facility] - [facility] S Leukocytes 6.8 3.5 - 10.5 X10(9)/L [facility] IC LABORATORIES - [facility] S Erythrocytes 2.00 (L) 4.32 - 5.72 X10(12)/L [facility] S MCV 84.0 81.2 - 95.1 [place] [facility]ATORIES - [employer] [facility] Specimen Anatomical Collection Method Collection Time Receive d Time (Source) Location / / Volume Laterality 06/15/2013 1:13 PM 3 1:13 AVIATION SUPPORT EQUIPMENT REPAIRER PM AVIATION SUPPORT EQUIPMENT REPAIRER Historical Provider LAB BLOOD ADD-ON Performing Organization Address City/State/[facility] Phon e Number [facility]IES - [address] [place] [phone] [employer] [facility] [facility] (ABNORMAL) Electrolyte Panel with Creatinine Remy (06/15/2013 1:13 PM AVIATION SUPPORT EQUIPMENT REPAIRER) [facility] Method Time Signature Creatinine, 2.0 (H) 0.9 - 1.4 [facility] Remy MG/DL LABORATORIES [facility] Potassium, P 3.7 3.6 - 5.2 [facility] MMOL/L LABORATORIES - [employer] Chloride, S 96 (L) 100 - 108 [facility] MMOL/L LABORATORIES - [employer] [facility] BUN (Blood 35 (H) 8 - 24 [facility] Urea MG/DL LABORATORIES - Nitrogen), S [employer] [facility] HX 22 22 - 29 [facility] Bicarbonate, MMOL/L LABORATORIES - P/S [employer] [facility] Glucose, S 148 (H) 70 - 140 [facility] MG/DL [facility] Sodium, P 129 (L) 135 - 145 [facility] MMOL/L LABORATORIES - [employer] [facility] Specimen Anatomical Collection Method Collection Time Receive d Time (Source) Location / / Volume Laterality 06/15/2013 1:13 PM 3 1:13 AVIATION SUPPORT EQUIPMENT REPAIRER PM AVIATION SUPPORT EQUIPMENT REPAIRER Historical Provider LAB BLOOD ADD-ON Performing Organization Address City/[facility] Phon e Number [facility]IES - [address] [place] [phone] [employer] [facility] Prepare platelets (06/15/2013 1:09 PM AVIATION SUPPORT EQUIPMENT REPAIRER) [facility] Method Time Signature HXPLT # UNITS 1 [facility] TRANSFUSED LAB[facility]ATORIES [facility] HXPLATELETS UNIT PLT [facility] INFO [facility] Comment: Unit Blood Type O Pos Unit Number [id number] Component Type Platelets, Apheresis Leuk oreduced, Irradiated, Bag 2 Issue Date/Time [id number] Specimen (Source) Anatomical Collection Method Collection Time Re ceived Time Location / / Volume Laterality 06/15/2013 1:09 PM AVIATION SUPPORT EQUIPMENT REPAIRER Historical Provider BLOOD BANK PRODUCT ORDERABLE S Performing Organization Address [facility] Phon e Number [facility]IES - [address] [place] [phone] [employer] [facility] Prepare Red Blood Cells (06/15/2013 12:54 PM AVIATION SUPPORT EQUIPMENT REPAIRER) Analysis Performed At Patho logist Time Signature HXRBC # UNITS 2 [facility] TRANSFUSED [facility] HXRBC UNIT INFO RBC [facility] Comment: Unit Blood Type O Pos Unit Number [id number] Component Type Red Blood Cells - -3 Le [facility] Issue Date/Time Unit Blood Type O Pos Unit Number [id number] Component Type Red Blood Cells - -3 Le [facility]duced Issue Date/Time [id number] Specimen (Source) Anatomical Collection Method Collection Time Re ceived Time Location / / Volume Laterality 06/15/2013 12:54 PM AVIATION SUPPORT EQUIPMENT REPAIRER Historical Provider BLOOD BANK PRODUCT ORDERABLE S Performing Organization Address City/[facility] Code Phon e Number [facility] - [address] [place] [phone] [employer] [facility] [facility] (ABNORMAL) ABG and Lytes, POCT (06/15/2013 12:46 PM AVIATION SUPPORT EQUIPMENT REPAIRER) Patholo gist Method Time Signature Arterial Venstick [facility] Sample Site [facility]ORATORIES [facility] Comment: Performed at the Point of Care pH 7.39 7.35 - 7.45 [facility] Comment: Performed at the Point of Care Base Excess -2 -2 - 2 MMOL/L [facility] Comment: Performed at the Point of Care HCO3 23 21 - 25 MMOL/L [facility] Comment: Performed at the Point of Care Sodium, B 128 (L) 135 - 145 MMOL/L [facility] Comment: Performed at the Point of Care Potassium, B 3.9 3.6 - 5.2 MMOL/L [facility] Comment: Performed at the Point of Care Glucose, POCT, B 145 (H) 70 - 140 MG/DL [facility] Comment: Performed at the Point of Care Hematocrit, POCT, B 16.0 (L) 38.8 - 50.0 % [facility] Comment: Performed at the Point of Care pCO2 39 35 - 45 MM HG [facility] LABO [facility]ATORIES [facility] Comment: Performed at the Point of Care pO2 18 (L) 70 - 100 MM HG [facility] LAB ORATORIES [facility] Comment: Performed at the Point of Care Calcium, Ionized, B 5.70 (H) 4.65 - 5.30 MG/DL [facility] Comment: Performed at the Point of Care pH 7.39 7.35 - 7.45 [facility]A [facility] Comment: Performed at the Point of Care Specimen Anatomical Collection Method Collection Time Receive d Time (Source) Location / / Volume Laterality 06/15/2013 12:46 06/15/2013 PM AVIATION SUPPORT EQUIPMENT REPAIRER 12:46 PM AVIATION SUPPORT EQUIPMENT REPAIRER Historical Provider LAB BLOOD NON ADD-ON Performing Organization Address City/State/ZIP Code Phon e Number [facility]IES - [address] (ABNORMAL) Glucose, POCT (06/15/2013 12:14 PM AVIATION SUPPORT EQUIPMENT REPAIRER) Patholo gist Method Time Signature Last Intake 2-3 hours [facility] Glucose, 150 (H) 70 - 140 [facility] POCT, B MG/DL [facility] Sample Site, Capillary [facility] Blood Gas, LABORATORIES - POCT [employer] [facility] Specimen Anatomical Collection Method Collection Time Receive d Time (Source) Location / / Volume Laterality 06/15/2013 12:14 06/15/2013 PM AVIATION SUPPORT EQUIPMENT REPAIRER 12:14 PM AVIATION SUPPORT EQUIPMENT REPAIRER Historical Provider LAB POCT ORDERABLES-MANUAL Performing Organization Address City/[facility] Phon e Number [facility]IES - [address] (ABNORMAL) APTT (Activated Partial Thromboplastin Time) (06/15/2013 8:59 AM AVIATION SUPPORT EQUIPMENT REPAIRER) P athologist Signature APTT, P 40 (H) 28 - 38 SEC [facility] Specimen Anatomical Collection Method Collection Time Receive d Time (Source) Location / / Volume Laterality 06/15/2013 8:59 AM 3 8:59 AVIATION SUPPORT EQUIPMENT REPAIRER AM AVIATION SUPPORT EQUIPMENT REPAIRER Samanta Villa P.A.-C., M.S. LAB BLOOD ADD-ON Performing Organization Address [facility] Phon e Number [facility]IES - [address] [place] [phone] [employer] [facility] HLA Class II Low Resolution Typing (06/15/2013 7:45 AM AVIATION SUPPORT EQUIPMENT REPAIRER) [facility] Method Time Signature Class II Low [id number] [facility] Res Donor LABORATORIES - [employer] [facility] [facility] DRB1 Locus 1,13 Not Applicable [facility] Serologic LABORATORIES - [facility] DRB1 Locus 01,13 Not Applicable [facility] Molecular LABORATORIES [facility] [id number] Locus 52 Not Applicable [facility] Serologic LABORATORIES [facility] DRB3 Locus 01 Not Applicable [facility] Molecular LABORATORIES [facility] DQB1 Locus 5,6 Not Applicable [facility] Serologic LABORATORIES - [facility] DQB1 Locus 05,06 Not Applicable [facility] Molecular [facility] Comment: Method: HLA Typing Defined by M [employer] Techn[employer] Specimen Anatomical Collection Method Collection Time Receive d Time (Source) Location / / Volume Laterality 06/15/2013 7:45 AM 3 7:45 AVIATION SUPPORT EQUIPMENT REPAIRER AM AVIATION SUPPORT EQUIPMENT REPAIRER Historical Provider LAB HLA ORDERABLES Performing Organization Address [facility] Phon e Number [facility]IES - [address] [place] [phone] [employer] [facility] HLA Class I Low Resolution Typing (06/15/2013 7:45 AM AVIATION SUPPORT EQUIPMENT REPAIRER) [facility] Method Time Signature A Locus 24,26 Not Applicable [facility] Molecular [facility]IES [facility] B Locus 27,38 Not Applicable [facility] Serologic LABORATORIES - [facility] B Locus 27,38 Not Applicable [facility] Molecular [facility]ATORIES [facility] C Locus 2,12 Not Applicable [facility] Serologic LABORATORIES - [facility] Class I Low [id number] [facility] Res Donor LABORATORIES - [employer] [facility] A Locus 24,26 Not Applicable [facility] Serologic LABORATORIES - [facility] C Locus 02,12 Not Applicable [facility] Molecular [facility]IES [facility] Bw Serologic 4,4 Not Applicable [facility] Equivalent LAB[facility]ATORIES [facility] Comment: Method: HLA Typing Defined by M [employer] Specimen Anatomical Collection Method Collection Time Receive d Time (Source) Location / / Volume Laterality 06/15/2013 7:45 AM 12/24/201 3 7:45 AVIATION SUPPORT EQUIPMENT REPAIRER AM AVIATION SUPPORT EQUIPMENT REPAIRER Historical Provider LAB HLA ORDERABLES Performing Organization Address City/[facility]/ZIP Code Phon e Number [facility]ATORIES - [address] [place], [place] [address] [employer] [facility] HLA CDC Crossmatch (06/15/2013 7:42 AM AVIATION SUPPORT EQUIPMENT REPAIRER) [facility] Method Time Signature CDC Current Negative Not Applicable [facility] T-Cell Result LABORATORIES - [employer] [facility] Comment: Method: Lymphocytotoxicity (Ser ology) CDC Crossmatch Donor [id number] [facility] LABORATORIES - [facility] S CDC Recipient Current Serum Date 06/12/2013 [facility] - [employer] [facility] Specimen Anatomical Collection Method Collection Time Receive d Time (Source) Location / / Volume Laterality 06/15/2013 7:42 AM 3 7:42 AVIATION SUPPORT EQUIPMENT REPAIRER AM AVIATION SUPPORT EQUIPMENT REPAIRER Historical Provider LAB HLA ORDERABLES Performing Organization Address [facility] Phon e Number [facility]IES - [address] [place], [place] [address] [employer] [facility] HLA Crossmatch Donor Draw (06/15/2013 7:42 AM AVIATION SUPPORT EQUIPMENT REPAIRER) [facility] Method Time Signature FXM [id number] [facility] Crossmatch LABORATORIES - Donor [employer] [facility] FXM Recipient 06/12/2013 [facility] Current Serum LABORATORIES - [facility] FXM Current Negative Not [facility] T-Cell Result Applicable [facility] FXM Current 11 <=52 [facility] T-Cell MCS [facility] FXM Current Negative Not [facility] B-Cell Result Applicable [facility] - [employer] [facility] FXM Current 15 <=106 [facility] B-Cell MCS LABORATORIES - [employer] [facility] Comment: Method: Flow Cytometry Specimen Anatomical Collection Method Collection Time Receive d Time (Source) Location / / Volume Laterality 06/15/2013 7:42 AM 3 7:42 AVIATION SUPPORT EQUIPMENT REPAIRER AM AVIATION SUPPORT EQUIPMENT REPAIRER Historical Provider LAB HLA ORDERABLES Performing Organization Address [facility] Phon e Number [facility]IES - [address] [place], [place] [address] [employer] [facility] Glucose, POCT (06/15/2013 7:33 AM AVIATION SUPPORT EQUIPMENT REPAIRER) [facility] Method Time [facility] Glucose, 118 70 - 140 [facility] POCT, B MG/DL [facility] Sample Site, Capillary [facility] Blood Gas, LABORATORIES - POCT [employer] [facility] Last Intake > 4 hours [facility] Specimen Anatomical Collection Method Collection Time Receive d Time (Source) Location / / Volume Laterality 06/15/2013 7:33 AM 3 7:33 AVIATION SUPPORT EQUIPMENT REPAIRER AM AVIATION SUPPORT EQUIPMENT REPAIRER Historical Provider LAB POCT ORDERABLES-MANUAL Performing Organization Address City/[facility]/ZIP Code Phon e Number [facility]IES - [address] [place] [phone] [employer] [facility] (ABNORMAL) APTT (Activated Partial Thromboplastin Time) (06/15/2013 3:33 AM AVIATION SUPPORT EQUIPMENT REPAIRER) P athologist Signature APTT, P 41 (H) 28 - 38 SEC [facility] Specimen Anatomical Collection Method Collection Time Receive d Time (Source) Location / / Volume Laterality 06/15/2013 3:33 AM 3 3:33 AVIATION SUPPORT EQUIPMENT REPAIRER AM AVIATION SUPPORT EQUIPMENT REPAIRER Radha Block APRN, C.N.P., M.S.N., R.N. LAB BLOOD ADD-ON Performing Organization Address City/[facility]/ZIP Code Phon e Number [facility]IES - [address] [place] [phone] [employer] [facility] PT (Prothrombin Time) with INR (06/15/2013 3:33 AM AVIATION SUPPORT EQUIPMENT REPAIRER) [facility] Method Time Signature Prothrombin 13.3 9.5 - 13.8 [facility] Time, P SEC LABORATORIES - [employer] [facility] INR 1.1 0.8 - 1.2 [facility] Specimen Anatomical Collection Method Collection Time Receive d Time (Source) Location / / Volume Laterality 06/15/2013 3:33 AM 3 3:33 AVIATION SUPPORT EQUIPMENT REPAIRER AM AVIATION SUPPORT EQUIPMENT REPAIRER Janette Ho APRNNFabrice., M.S.N., R.N. LAB BLOOD ADD-ON Performing Organization Address City/[facility]/ZIP Code Phon e Number [facility]ATORIES - [address] [place] [phone] [employer] [facility] (ABNORMAL) CBC with Differential - No Alerts (06/15/2013 3:32 AM AVIATION SUPPORT EQUIPMENT REPAIRER) [facility] Method Time Signature Lymphocytes 0.42 (L) 0.90 - [facility] 2.90 LABORATORIES - X10(9)/L [employer] [facility] Monocytes 0.46 0.30 - [facility] 0.90 LABORATORIES - X10(9)/L [employer] [facility] Hemoglobin 8.0 (L) 13.5 - [facility] 17.5 G/DL LABORATORIES - [employer] [facility] Hematocrit 22.2 (L) 38.8 - [facility] 50.0 % LABORATORIES - [employer] [facility] Erythrocytes 2.62 (L) 4.32 - [facility] 5.72 LABORATORIES - X10(12)/L [facility] [employer] [facility] MCV 84.7 81.2 - [facility] 95.1 FL LABORATORIES - [employer] [facility] RBC Distrib 15.4 11.8 - [facility] Width 15.6 % LABORATORIES - [employer] [facility] Neutrophils 5.38 1.70 - [facility] 7.00 LABORATORIES - X10(9)/L [employer] [facility] [employer] [facility] Eosinophils 0.01 (L) 0.05 - [facility] 0.50 LABORATORIES - X10(9)/L [facility] [employer] [facility] Basophils 0.00 0.00 - [facility] 0.30 LABORATORIES - X10(9)/L [facility] [employer] [facility] Platelet Count 39 (L) 150 - 450 [facility] X10(9)/L LABORATORIES - [employer] [facility] Leukocytes 6.3 3.5 - [facility] 10.5 LABORATORIES - X10(9)/L [employer] Specimen Anatomical Collection Method Collection Time Receive d Time (Source) Location / / Volume Laterality 06/15/2013 3:32 AM 3 3:32 AVIATION SUPPORT EQUIPMENT REPAIRER AM AVIATION SUPPORT EQUIPMENT REPAIRER Arley Ho APRN.N.P., M.S.N., R.N. LAB BLOOD NON ADD-ON Performing Organization Address City/State/ZIP Code Phon e Number [facility] LAB[facility]ATORIES - [address] [place], [place] [address] [employer] [facility] (ABNORMAL) ALT (Alanine Aminotransferase) (06/15/2013 3:32 AM AVIATION SUPPORT EQUIPMENT REPAIRER) Component Value Ref Test Analysis [facility] Method Time Signature Alanine 102 (H) 7 - 55 [facility] Aminotransferase U/L LABORATORIES - (ALT), S [employer] [facility] Specimen Anatomical Collection Method Collection Time Receive d Time (Source) Location / / Volume Laterality 06/15/2013 3:32 AM 3 3:32 AVIATION SUPPORT EQUIPMENT REPAIRER AM AVIATION SUPPORT EQUIPMENT REPAIRER Arley Ho APRN.N.Evan., M.S.N., R.N. LAB BLOOD ADD-ON Performing Organization Address City/State/ZIP Code Phon e Number [facility] LABORATORIES - [address] [place] [phone] [employer] [facility] Magnesium (06/15/2013 3:32 AM AVIATION SUPPORT EQUIPMENT REPAIRER) P athologist Signature Magnesium, S 1.9 1.7 - 2.3 [facility] MG/DL LABORATORIES - [employer] [facility] Specimen Anatomical Collection Method Collection Time Receive d Time (Source) Location / / Volume Laterality 06/15/2013 3:32 AM 3 3:32 AVIATION SUPPORT EQUIPMENT REPAIRER AM AVIATION SUPPORT EQUIPMENT REPAIRER Radha Block APRN, C.N.P., M.S.N., R.N. LAB BLOOD ADD-ON Performing Organization Address City/[facility]/ZIP Code Phon e Number [facility] LABORATORIES - [address] [place] [phone] [employer] [facility] Alkaline Phosphatase (06/15/2013 3:32 AM AVIATION SUPPORT EQUIPMENT REPAIRER) athologist Signature Alkaline 53 45 - 115 [facility] Phosphatase, S U/L LABORATORIES - [employer] [facility] Specimen Anatomical Collection Method Collection Time Receive d Time (Source) Location / / Volume Laterality 06/15/2013 3:32 AM 3 3:32 AVIATION SUPPORT EQUIPMENT REPAIRER AM AVIATION SUPPORT EQUIPMENT REPAIRER Radha Block APRN, C.N.P., M.S.N., R.N. LAB BLOOD ADD-ON Performing Organization Address City/[facility] Phon e Number [facility] LABORATORIES - [address] [place] [phone] [employer] [facility] (ABNORMAL) Electrolyte (Chem 4) Panel (06/15/2013 3:32 AM AVIATION SUPPORT EQUIPMENT REPAIRER) Patholo gist Method Time Signature Chloride, S 97 (L) 100 - 108 [facility] MMOL/L LABORATORIES - [employer] [facility] HX Bicarbonate, 23 22 - 29 [facility] P/S MMOL/L LABORATORIES - [employer] [facility] eGFR-Black/Afri 42 (L) >60 [facility] can Monegasque ML/MIN/BS LABORATORIES - A [employer] [facility] BUN (Blood Urea 36 (H) 8 - 24 [facility] Nitrogen), S MG/DL [facility] - [employer] [facility] [employer] [facility] Sodium, S 131 (L) 135 - 145 [facility] MMOL/L [facility] - [employer] [facility] Potassium, S 4.0 3.6 - 5.2 [facility] MMOL/L LABORATORIES - [employer] Creatinine 2.0 (H) 0.8 - 1.3 [facility] MG/DL LABORATORIES - [employer] [facility] eGFR 34 (L) >60 [facility] Non-Black/Afric ML/MIN/BS LABORATORIES - an Monegasque A [employer] Anion Gap 11 7 - 15 [facility] LABORATORIES - [employer] [facility] Glucose, S 125 70 - 140 [facility] MG/DL LABORATORIES - [employer] [facility] Specimen Anatomical Collection Method Collection Time Receive d Time (Source) Location / / Volume Laterality 06/15/2013 3:32 AM 3 3:32 AVIATION SUPPORT EQUIPMENT REPAIRER AM AVIATION SUPPORT EQUIPMENT REPAIRER Radha Block APRN, C.N.P., M.S.N., R.N. LAB BLOOD ADD-ON Performing Organization Address City/[facility] Code Phon e Number [facility] LABORATORIES - [address] [place] [phone] [employer] [facility] (ABNORMAL) Bilirubin (06/15/2013 3:32 AM AVIATION SUPPORT EQUIPMENT REPAIRER) Patholo gist Method Time Signature Bilirubin, 3.2 (H) 0.1 - 1.0 [facility] Total, S MG/DL LABORATORIES - [employer] [facility] Bilirubin, 2.3 (H) 0.0 - 0.3 [facility] Direct, S MG/DL LABORATORIES - [employer] [facility] Specimen Anatomical Collection Method Collection Time Receive d Time (Source) Location / / Volume Laterality 06/15/2013 3:32 AM 3 3:32 AVIATION SUPPORT EQUIPMENT REPAIRER AM AVIATION SUPPORT EQUIPMENT REPAIRER Janette Ho APRNN.Evan., M.S.N., R.N. LAB BLOOD ADD-ON Performing Organization Address City/State/[facility] Code Phon e Number [facility]ATORIES - [address] [phone] [facility] [employer] [facility] Phosphorus Inorganic (06/15/2013 3:32 AM AVIATION SUPPORT EQUIPMENT REPAIRER) Analysis Performed At Patho logist Time Signature Phosphorus 3.5 2.5 - 4.5 [facility] (Inorganic), S MG/DL LABORATORIES - [facility] [employer] [facility] Specimen Anatomical Collection Method Collection Time Receive d Time (Source) Location / / Volume Laterality 06/15/2013 3:32 AM 3 3:32 AVIATION SUPPORT EQUIPMENT REPAIRER AM AVIATION SUPPORT EQUIPMENT REPAIRER Janette Ho APRNN.P., M.S.N., R.N. LAB BLOOD ADD-ON Performing Organization Address City/[facility]/ZIP Code Phon e Number [facility] - [address] [phone] [employer] [facility] Calcium, Total (06/15/2013 3:32 AM AVIATION SUPPORT EQUIPMENT REPAIRER) P athologist Signature Calcium, 9.8 8.9 - 10.1 [facility] Total, S MG/DL [facility] Specimen Anatomical Collection Method Collection Time Receive d Time (Source) Location / / Volume Laterality 06/15/2013 3:32 AM 3 3:32 AVIATION SUPPORT EQUIPMENT REPAIRER AM AVIATION SUPPORT EQUIPMENT REPAIRER Radha Block APRN, C.N.P., M.S.N., R.N. LAB BLOOD ADD-ON Performing Organization Address City/[facility]/ZIP Code Phon e Number [facility] - [address] [phone] [employer] [facility] (ABNORMAL) AST (Aspartate Aminotransferase) (06/15/2013 3:32 AM AVIATION SUPPORT EQUIPMENT REPAIRER) Analysis Performed At [facility] Time Signature AST, Total, S 53 (H) 8 - 48 U/L [facility] Specimen Anatomical Collection Method Collection Time Receive d Time (Source) Location / / Volume Laterality 06/15/2013 3:32 AM 3 3:32 AVIATION SUPPORT EQUIPMENT REPAIRER AM AVIATION SUPPORT EQUIPMENT REPAIRER Janette Ho APRNN.P., M.S.N., R.N. LAB BLOOD ADD-ON Performing Organization Address City/[facility]/ZIP Code Phon e Number [facility] - [address] [phone] [facility] [employer] [facility] (ABNORMAL) Albumin (06/15/2013 3:32 AM AVIATION SUPPORT EQUIPMENT REPAIRER) P athologist Signature Albumin, S 2.5 (L) 3.5 - 5.0 [facility] G/DL [facility] Specimen Anatomical Collection Method Collection Time Receive d Time (Source) Location / / Volume Laterality 06/15/2013 3:32 AM 3 3:32 AVIATION SUPPORT EQUIPMENT REPAIRER AM AVIATION SUPPORT EQUIPMENT REPAIRER Janette Ho APRNN.P., M.S.N., R.N. LAB BLOOD ADD-ON Performing Organization Address City/State/ZIP Code Phon e Number [facility] - [address] [place], [place] [address] [employer] [facility] Glucose, POCT (06/15/2013 3:26 AM AVIATION SUPPORT EQUIPMENT REPAIRER) [facility] Method Time Signature Glucose, 128 70 - 140 [facility] POCT, B MG/DL LABORATORIES - [employer] [facility] Sample Site, Capillary [facility] Blood Gas, LABORATORIES - POCT [employer] [facility] Last Intake > 4 hours [facility] Specimen Anatomical Collection Method Collection Time Receive d Time (Source) Location / / Volume Laterality 06/15/2013 3:26 AM 3 3:26 AVIATION SUPPORT EQUIPMENT REPAIRER AM AVIATION SUPPORT EQUIPMENT REPAIRER Historical Provider LAB POCT ORDERABLES-MANUAL Performing Organization Address City/[facility]/ZIP Code Phon e Number [facility] - [address] [place], [place] [address] [employer] [facility] (ABNORMAL) APTT (Activated Partial Thromboplastin Time) (06/14/2013 8:58 PM AVIATION SUPPORT EQUIPMENT REPAIRER) P athologist Signature APTT, P 40 (H) 28 - 38 SEC [facility] Specimen Anatomical Collection Method Collection Time Receive d Time (Source) Location / / Volume Laterality 06/14/2013 8:58 PM 3 8:58 AVIATION SUPPORT EQUIPMENT REPAIRER PM AVIATION SUPPORT EQUIPMENT REPAIRER Historical Provider LAB BLOOD ADD-ON Performing Organization Address City/State/ZIP Code Phon e Number [facility] - [address] [place], [place] [address] [employer] [facility] Glucose, POCT (06/14/2013 5:46 PM AVIATION SUPPORT EQUIPMENT REPAIRER) [facility] Method [place] Signature Glucose, 135 70 - 140 [facility] POCT, B MG/DL LABORATORIES - [facility] [employer] [facility] Sample Site, Capillary [facility] Blood Gas, LABORATORIES - POCT [employer] [facility] Last Intake <1 hour [facility] Specimen Anatomical Collection Method Collection Time Receive d Time (Source) Location / / Volume Laterality 06/14/2013 5:46 PM 3 5:46 AVIATION SUPPORT EQUIPMENT REPAIRER PM AVIATION SUPPORT EQUIPMENT REPAIRER Historical Provider LAB POCT ORDERABLES-MANUAL Performing Organization Address City/[facility]/ZIP Code Phon e Number [facility] - [address] [phone] [employer] [facility] Glucose, POCT (06/14/2013 12:31 PM AVIATION SUPPORT EQUIPMENT REPAIRER) Patholo gist Method Time Signature Glucose, 139 70 - 140 [facility] POCT, B MG/DL LABORATORIES - [facility] [employer] [facility] Sample Site, Capillary [facility] Blood Gas, LABORATORIES - POCT [employer] [facility] Last Intake 2-3 hours [facility] - [employer] Specimen Anatomical Collection Method Collection Time Receive d Time (Source) Location / / Volume Laterality 06/14/2013 12:31 06/14/2013 PM AVIATION SUPPORT EQUIPMENT REPAIRER 12:31 PM AVIATION SUPPORT EQUIPMENT REPAIRER Historical Provider LAB POCT ORDERABLES-MANUAL Performing Organization Address City/State/ZIP Code Phon e Number [facility] - [address] [place], [place] [address] [employer] [facility] US Abdomen Limited plus Abdomen Doppler (06/14/2013 10:50 AM AVIATION SUPPORT EQUIPMENT REPAIRER) Anatomical Region Laterality Modality Abdomen N/A Ultrasound Specimen (Source) Anatomical Collection Method Collection Time Re ceived Time Location / / Volume Laterality 06/14/2013 10:50 AM AVIATION SUPPORT EQUIPMENT REPAIRER Narrative 06/14/2013 11:16 AM AVIATION SUPPORT EQUIPMENT REPAIRER 14-Jun-2013 10:50:00 ??Exam: [facility]: [id number]; [phone]; liver t x w/doppler; Follow up exam following transplant ORIGINAL REPORT - 14-Jun-2013 11:16:00 Ultrasound of the Liver Transplant and A bdomen with Doppler: ?? Liver transplant:.... ??Normal echotextu re. There is a 1.9 x 8.2 x 5.6 cm hematoma adjacent to the anterior aspect of the liver. Gallbladder:...........Absent. Bile ducts:............Not dilated. Doppler:...............Hepatic arteries, splenic, portal, and hepatic veins; patent. 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 Elevated velocities remain elevated within the main por salome vein, measuring up to 163 cm/sec. He patic arterial resistivity indices range from 0.69 to 0.75. Decreased phasicity within the hepatic veins IVC:......................Normal. Electronically signed by: ?? Evelio Roman MD [id number] 14-Jun-2013 11:16 Procedure Note Evelio Roman M.D. - 09/19/2017Fo rmatting of this note might be different from the original. 14-Jun-2013 10:50:00 Exam: US Abd Lmtd w ith Doppler Cmpl Indications: [id number]; [phone]; liver t x w/doppler; Follow up exam following transplant ORIGINAL REPORT - 14-Jun-2013 11:16:00 Ultrasound of the Liver Transplant and A bdomen with Doppler: Liver transplant:.... Normal echotexture . There is a 1.9 x 8.2 x 5.6 cm hematoma adjacent to the anterior aspect of the liver. Gallbladder:...........Absent. Bile ducts:............Not dilated. Doppler:...............Hepatic arteries, splenic, portal, and hepatic veins; patent. 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 Elevated velocities remain elevated within the main portal vein, measuring up to 163 cm/sec. Hepatic dada rial resistivity indices range from 0.69 to 0.75. Decreased phasicity within the hepatic veins IVC:......................Normal. Electronically signed by: Evelio Roman MD [id number] 14-Jun-2013 11:16 Sabi Evans M.D. IMG US PROCEDURES (ABNORMAL) Glucose, POCT (06/14/2013 7:53 AM AVIATION SUPPORT EQUIPMENT REPAIRER) [facility] gist Method Time Signature Glucose, 142 (H) 70 - 140 [facility] POCT, B MG/DL LABORATORIES - [employer] Sample Site, Capillary [facility] Blood Gas, LABORATORIES - POCT [employer] Specimen Anatomical Collection Method Collection Time Receive d Time (Source) Location / / Volume Laterality 06/14/2013 7:53 AM 3 7:53 AVIATION SUPPORT EQUIPMENT REPAIRER AM AVIATION SUPPORT EQUIPMENT REPAIRER Historical Provider LAB POCT ORDERABLES-MANUAL Performing Organization Address City/State/ZIP Code Phon e Number [facility]IES - [address] [place], [place] [address] [employer] [facility] (ABNORMAL) AST (Aspartate Aminotransferase) (06/14/2013 2:06 AM AVIATION SUPPORT EQUIPMENT REPAIRER) [facility] Method Time Signature AST, Total, S 116 (H) 8 - 48 U/L [facility] Comment: Drawn From Arterial Line Specimen Anatomical Collection Method Collection Time Receive d Time (Source) Location / / Volume Laterality 06/14/2013 2:06 AM 3 2:06 AVIATION SUPPORT EQUIPMENT REPAIRER AM AVIATION SUPPORT EQUIPMENT REPAIRER Narrative [facility] - 06/14/2013 3:12 AM AVIATION SUPPORT EQUIPMENT REPAIRER Drawn From Arterial Line Otoniel Grijalva P.A.-C., M.S. LAB BLOOD ADD-ON Performing Organization Address [facility] Phon e Number [facility] - [address] [phone] [employer] [facility] (ABNORMAL) Cytomegalovirus Ab, IgM and IgG (06/14/2013 2:06 AM AVIATION SUPPORT EQUIPMENT REPAIRER) [facility] Method Time Signature Cytomegalovirus Positive Negative [facility] Ab, IgG, S (A) [facility] Comment: Drawn From Arterial Line Cytomegalovirus Ab, IgM, S Negative Negative [facility] Comment: Drawn From Arterial Line Specimen Anatomical Collection Method Collection Time Receive d Time (Source) Location / / Volume Laterality 06/14/2013 2:06 AM 3 2:06 AVIATION SUPPORT EQUIPMENT REPAIRER AM AVIATION SUPPORT EQUIPMENT REPAIRER Narrative [facility] - 06/14/2013 3:31 PM AVIATION SUPPORT EQUIPMENT REPAIRER Drawn From Arterial Line Otoniel Grijalva P.A.-C., M.S. LAB MICROBIOLOGY - BLOO D ORDERABLES Performing Organization Address [facility] Phon e Number [facility] - [address] [address] [employer] [facility] (ABNORMAL) Albumin (06/14/2013 2:06 AM AVIATION SUPPORT EQUIPMENT REPAIRER) P athologist Signature Albumin, S 2.5 (L) 3.5 - 5.0 [facility] G/DL [facility] Comment: Drawn From Arterial Line Specimen Anatomical Collection Method Collection Time Receive d Time (Source) Location / / Volume Laterality 06/14/2013 2:06 AM 3 2:06 AVIATION SUPPORT EQUIPMENT REPAIRER AM AVIATION SUPPORT EQUIPMENT REPAIRER Narrative [facility] - 06/14/2013 3:12 AM AVIATION SUPPORT EQUIPMENT REPAIRER Drawn From Arterial Line Otoniel Grijalva P.A.-C., MDemetriusS. LAB BLOOD ADD-ON Performing Organization Address City/[facility]/ZIP Code Phon e Number [facility]IES - [address] [place] [phone] [employer] [facility] (ABNORMAL) ALT (Alanine Aminotransferase) (06/14/2013 2:06 AM AVIATION SUPPORT EQUIPMENT REPAIRER) Component Value Ref Test Analysis Performed At [facility] gist Range Method Time Signature Alanine 146 (H) 7 - 55 [facility] Aminotransferase U/L LABORATORIES - (ALT), S [employer] [facility] Comment: Drawn From Arterial Line Specimen Anatomical Collection Method Collection Time Receive d Time (Source) Location / / Volume Laterality 06/14/2013 2:06 AM 3 2:06 AVIATION SUPPORT EQUIPMENT REPAIRER AM AVIATION SUPPORT EQUIPMENT REPAIRER Narrative [facility] - 06/14/2013 3:12 AM AVIATION SUPPORT EQUIPMENT REPAIRER Drawn From Arterial Line Otoniel Grijalva P.A.-C., M.SDemetrius LAB BLOOD ADD-ON Performing Organization Address [facility] Code Phon e Number [facility]IES - [address] [place] [phone] [employer] [facility] HLA Class II SAB Antibody Screen (06/14/2013 2:06 AM AVIATION SUPPORT EQUIPMENT REPAIRER) [facility] Method Time Signature SAB DRB1 NONE [facility] Specificity LABORATORIES - [employer] [facility] Comment: Drawn From Arterial Line SAB [id number] Specificity NONE [facility] LAB[facility]ATORIES - [employer] [facility] Comment: Drawn From Arterial Line Class II SAB Overall Negative Not Applicable [facility] - Result [facility] Comment: Drawn From Arterial Line Class II SAB cPRA 0 [facility] Comment: Drawn From Arterial Line ? This PRA is a [facility] Tiss ue Typing ? Laboratory calculated PRA. PRA is based on the antigen ? frequency of the Tissue Typing patient a nd donor ? population. ??PRA reflects all antibodie s with a normalized ? value (MFI) above 300. ? SAB DQB1 Specificity NONE [facility] Comment: Drawn From Arterial Line SAB DPB1 Specificity NONE [facility] Comment: Drawn From Arterial Line ? Method: Luminex Flow Cytometry ? Specimen Anatomical Collection Method Collection Time Receive d Time (Source) Location / / Volume Laterality 06/14/2013 2:06 AM 3 2:06 AVIATION SUPPORT EQUIPMENT REPAIRER AM AVIATION SUPPORT EQUIPMENT REPAIRER Narrative [facility] - 06/15/2013 10:50 AM AVIATION SUPPORT EQUIPMENT REPAIRER Drawn From Arterial Line Otoniel Grijalva P.A.-C. M.S. LAB HLA ORDERABLES Performing Organization Address City/[facility] Phon e Number [facility]IES - [address] (ABNORMAL) Troponin T (06/14/2013 2:06 AM AVIATION SUPPORT EQUIPMENT REPAIRER) Patholo gist Method Time Signature Troponin T, S 0.04 (H) <0.01 [facility] NG/ML [facility] Comment: Drawn From Arterial Line Specimen Anatomical Collection Method Collection Time Receive d Time (Source) Location / / Volume Laterality 06/14/2013 2:06 AM 3 2:06 AVIATION SUPPORT EQUIPMENT REPAIRER AM AVIATION SUPPORT EQUIPMENT REPAIRER Narrative [facility] - 06/14/2013 3:12 AM AVIATION SUPPORT EQUIPMENT REPAIRER Drawn From Arterial Line Otoniel Grijalva P.A.-C., M.S. LAB BLOOD ADD-ON Performing Organization Address [facility] Phon e Number [facility]IES - [address] Magnesium (06/14/2013 2:06 AM AVIATION SUPPORT EQUIPMENT REPAIRER) P athologist Signature Magnesium, S 2.0 1.7 - 2.3 [facility] MG/DL [facility] Comment: Drawn From Arterial Line Specimen Anatomical Collection Method Collection Time Receive d Time (Source) Location / / Volume Laterality 06/14/2013 2:06 AM 3 2:06 AVIATION SUPPORT EQUIPMENT REPAIRER AM AVIATION SUPPORT EQUIPMENT REPAIRER Narrative [facility] - 06/14/2013 3:12 AM AVIATION SUPPORT EQUIPMENT REPAIRER Drawn From Arterial Line Otoniel Grijalva P.A.-C., M.S. LAB BLOOD ADD-ON Performing Organization Address City/[facility]/ZIP Code Phon e Number [facility]IES - [address] [place] [phone] [employer] [facility] (ABNORMAL) Calcium, Total (06/14/2013 2:06 AM AVIATION SUPPORT EQUIPMENT REPAIRER) Patholo gist Method Time Signature Calcium, 11.4 (H) 8.9 - [facility] Total, S 10.1 LABORATORIES - MG/DL [employer] [facility] Comment: Drawn From Arterial Line Specimen Anatomical Collection Method Collection Time Receive d Time (Source) Location / / Volume Laterality 06/14/2013 2:06 AM 3 2:06 AVIATION SUPPORT EQUIPMENT REPAIRER AM AVIATION SUPPORT EQUIPMENT REPAIRER Narrative [facility] - 06/14/2013 3:12 AM AVIATION SUPPORT EQUIPMENT REPAIRER Drawn From Arterial Line Otoniel Grijalva P.A.-C., M.S. LAB BLOOD ADD-ON Performing Organization Address City/[facility]/ZIP Code Phon e Number [facility] - [address] [address] [employer] [facility] (ABNORMAL) BUN (Blood Urea Nitrogen) (06/14/2013 2:06 AM AVIATION SUPPORT EQUIPMENT REPAIRER) Analysis Performed At Patho logist Time Signature BUN (Blood 28 (H) 8 - 24 [facility] Urea MG/DL LABORATORIES - Nitrogen), S [employer] [facility] Comment: Drawn From Arterial Line Specimen Anatomical Collection Method Collection Time Receive d Time (Source) Location / / Volume Laterality 06/14/2013 2:06 AM 3 2:06 AVIATION SUPPORT EQUIPMENT REPAIRER AM AVIATION SUPPORT EQUIPMENT REPAIRER Narrative [facility] - 06/14/2013 3:12 AM AVIATION SUPPORT EQUIPMENT REPAIRER Drawn From Arterial Line Otoniel Grijalva P.A.-C., M.S. LAB BLOOD ADD-ON Performing Organization Address City/State/ZIP Code Phon e Number [facility] - [address] [address] [employer] [facility] (ABNORMAL) Glucose, Fasting (06/14/2013 2:06 AM AVIATION SUPPORT EQUIPMENT REPAIRER) P athologist Signature Glucose, P 152 (H) 70 - 100 [facility] MG/DL [facility] Comment: Drawn From Arterial Line Specimen Anatomical Collection Method Collection Time Receive d Time (Source) Location / / Volume Laterality 06/14/2013 2:06 AM 3 2:06 AVIATION SUPPORT EQUIPMENT REPAIRER AM AVIATION SUPPORT EQUIPMENT REPAIRER Narrative [facility] - 06/14/2013 2:59 AM AVIATION SUPPORT EQUIPMENT REPAIRER Drawn From Arterial Line Otoniel Grijalva P.A.-C., M.S. LAB BLOOD NON ADD-ON Performing Organization Address City/[facility]/ZIP [facility] Phon e Number [facility]ORATORIES - [address] [place] [address] [employer] [facility] Alkaline Phosphatase (06/14/2013 2:06 AM AVIATION SUPPORT EQUIPMENT REPAIRER) athologist [facility] Alkaline 45 45 - 115 [facility] Phosphatase, S U/L [facility] Comment: Drawn From Arterial Line Specimen Anatomical Collection Method Collection Time Receive d Time (Source) Location / / Volume Laterality 06/14/2013 2:06 AM 3 2:06 AVIATION SUPPORT EQUIPMENT REPAIRER AM AVIATION SUPPORT EQUIPMENT REPAIRER Narrative [facility] - 06/14/2013 3:12 AM AVIATION SUPPORT EQUIPMENT REPAIRER Drawn From Arterial Line Otoniel Grijalva P.A.-C., M.S. LAB BLOOD ADD-ON Performing Organization Address City/[facility] Code Phon e Number [facility]IES - [address] [place] [address] [employer] HLA Class I SAB Antibody Screen (06/14/2013 2:06 AM AVIATION SUPPORT EQUIPMENT REPAIRER) [facility] gist Method Time Signature Class I SAB Negative Not Applicable [facility] Overall LABORATORIES - Result [employer] [facility] Comment: Drawn From Arterial Line Class I SAB cPRA 0 [facility] L ABORATORIES [facility] Comment: Drawn From Arterial Line ? This PRA is a [facility] Tiss ue Typing ? Laboratory calculated PRA. PRA is based on the antigen ? frequency of the Tissue Typing patient a nd donor ? population. ??PRA reflects all antibodie s with a normalized ? value (MFI) above 300. ? SAB C Specificity NONE [facility] Comment: Drawn From Arterial Line ? Method: Luminex Flow Cytometry ? SAB A Specificity NONE [facility] Comment: Drawn From Arterial Line SAB B Specificity NONE [facility] Comment: Drawn From Arterial Line Specimen Anatomical Collection Method Collection Time Receive d Time (Source) Location / / Volume Laterality 06/14/2013 2:06 AM 3 2:06 AVIATION SUPPORT EQUIPMENT REPAIRER AM AVIATION SUPPORT EQUIPMENT REPAIRER Narrative [facility] - 06/15/2013 10:47 AM AVIATION SUPPORT EQUIPMENT REPAIRER Drawn From Arterial Line Otoniel Grijalva P.A.-C. MDemetriusS. LAB HLA ORDERABLES Performing Organization Address City/State/[facility] Phon e Number [facility] - [address] [place], [place] [address] [employer] [facility] (ABNORMAL) Phosphorus Inorganic (06/14/2013 2:06 AM AVIATION SUPPORT EQUIPMENT REPAIRER) [facility] gist Method Time Signature Phosphorus 5.6 (H) 2.5 - 4.5 [facility] (Inorganic), S MG/DL [facility] Comment: Drawn From Arterial Line Specimen Anatomical Collection Method Collection Time Receive d Time (Source) Location / / Volume Laterality 06/14/2013 2:06 AM 3 2:06 AVIATION SUPPORT EQUIPMENT REPAIRER AM AVIATION SUPPORT EQUIPMENT REPAIRER Narrative [facility] - 06/14/2013 3:12 AM AVIATION SUPPORT EQUIPMENT REPAIRER Drawn From Arterial Line Otoniel Grijalva P.A.-C. MDemetriusS. LAB BLOOD ADD-ON Performing Organization Address City/State/ZIP Code Phon e Number [facility] - [address] [place], [place] [address] [employer] [facility] (ABNORMAL) CBC with Differential - No Alerts (06/14/2013 2:06 AM AVIATION SUPPORT EQUIPMENT REPAIRER) [facility] Method Time Signature Erythrocytes 3.09 (L) 4.32 - [facility] 5.72 LABORATORIES - X10(12)/L [place] [facility] Comment: Drawn From Arterial Line MCV 80.3 (L) 81.2 - 95.1 [place] [facility] Comment: Drawn From Arterial Line Lymphocytes 0.32 (L) 0.90 - 2.90 X10(9)/L [facility] Comment: Drawn From Arterial Line Monocytes 0.60 0.30 - 0.90 X10(9)/L [facility] Comment: Drawn From Arterial Line Hemoglobin 9.1 (L) 13.5 - 17.5 G/DL [facility] Comment: Drawn From Arterial Line Hematocrit 24.8 (L) 38.8 - 50.0 % [facility] Comment: Drawn From Arterial Line RBC Distrib Width 14.8 11.8 - 15.6 % [facility] Comment: Drawn From Arterial Line Neutrophils 7.39 (H) 1.70 - 7.00 X10(9)/L [facility] Comment: Drawn From Arterial Line Eosinophils 0.00 (L) 0.05 - 0.50 X10(9)/L [facility] Comment: Drawn From Arterial Line Basophils 0.00 0.00 - 0.30 X10(9)/L [facility] Comment: Drawn From Arterial Line Platelet Count 35 (L) 150 - 450 X10(9)/L [facility] Comment: Drawn From Arterial Line ? Results confirmed by smear. ? Leukocytes 8.3 3.5 - 10.5 X10(9)/L [facility] Comment: Drawn From Arterial Line Specimen Anatomical Collection Method Collection Time Receive d Time (Source) Location / / Volume Laterality 06/14/2013 2:06 AM 3 2:06 AVIATION SUPPORT EQUIPMENT REPAIRER AM AVIATION SUPPORT EQUIPMENT REPAIRER Narrative [facility] - 06/14/2013 4:36 AM AVIATION SUPPORT EQUIPMENT REPAIRER Drawn From Arterial Line Otoniel Grijalva P.A.-C., M.S. LAB BLOOD NON ADD-ON Performing Organization Address City/State/ZIP Code Phon e Number [facility] - [address] [place], [place] [address] [place] [employer] [facility] Microbiology Reports (06/14/2013 2:05 AM AVIATION SUPPORT EQUIPMENT REPAIRER) Specimen Anatomical Collection Method Collection Time Receive d Time (Source) Location / / Volume Laterality 06/14/2013 2:05 AM 3 2:07 AVIATION SUPPORT EQUIPMENT REPAIRER AM AVIATION SUPPORT EQUIPMENT REPAIRER Narrative [facility] - 08/13/2013 1:05 PM AVIATION SUPPORT EQUIPMENT REPAIRER 14-JUN-2013 BLOOD VIA ARTERIAL LINE, ARM RIGHT ? SoftOrd# [id number] ?(Ordered 14-JUN-2013; Collec onel 14-JUN-2013 02:05; Received 14-JUN-2013 02:55) ?[facility] ?Drawn From Arterial Line ?Received Isolator and two [facility] Myco F bottles Received Bactec aerobic and Bactec anaerobic bottles ?BACTERIA/MARRY CULTURE, BLOOD ? (Reported 19-JUN-2013 06:30) FINAL ?No growth after 5 days of in cubation. ?BRUCELLA CULTURE, B ? (Reported 28-JUN-2013 11:56) FINAL ?No growth after 14 days of i ncubation. ?FUNGAL/TB CULTURE, SPECIAL, BLO OD ? (Reported 13-AUG-2013 13:05) FINAL ?No Growth after 60 days of i ncubation. Procedure Note 10/01/2017 14-JUN-2013 BLOOD VIA ARTERIAL LINE, ARM RIGHT SoftOrd# [id number] (Ordered 14-JUN-2013; Collected 2012 02:05; Received 14-JUN-2013 02:55) [facility] Drawn From Arterial Line Received Isolator and two Bactec Myco F bottles Received Bactec aerobic and Bactec anaerobic bottles BACTERIA/MARRY CULTURE, BLOOD (Repor onel 19-JUN-2013 06:30) FINAL No growth after 5 days of incubation. BRUCELLA CULTURE, B (Reported 014 11:56) FINAL No growth after 14 days of incubation. FUNGAL/TB CULTURE, SPECIAL, BLOOD (Rep orted 13-AUG-2013 13:05) FINAL No Growth after 60 days of incubation. Otoniel Grijalva P.A.-C., M.S. LAB MICROBIOLOGY - GENE RAL ORDERABLES Performing Organization Address City/State/ZIP Code Phon e Number [facility] - [address] PT (Prothrombin Time) with INR (06/14/2013 1:45 AM AVIATION SUPPORT EQUIPMENT REPAIRER) [facility] Signature Prothrombin 12.3 9.5 - 13.8 [facility] Time, P SEC [facility] INR 1.1 0.8 - 1.2 [facility] Specimen Anatomical Collection Method Collection Time Receive d Time (Source) Location / / Volume Laterality 06/14/2013 1:45 AM 3 1:45 AVIATION SUPPORT EQUIPMENT REPAIRER AM AVIATION SUPPORT EQUIPMENT REPAIRER Dex Smith APRN, C.N.P. LAB BLOOD ADD-ON Performing Organization Address City/[facility]/ZIP Code Phon e Number [facility] - [address] (ABNORMAL) Fibrinogen (06/14/2013 1:45 AM AVIATION SUPPORT EQUIPMENT REPAIRER) [facility] Signature Fibrinogen, P 187 (L) 200 - 375 [facility] MG/DL LABORATORIES [facility] Specimen Anatomical Collection Method Collection Time Receive d Time (Source) Location / / Volume Laterality 06/14/2013 1:45 AM 3 1:45 AVIATION SUPPORT EQUIPMENT REPAIRER AM AVIATION SUPPORT EQUIPMENT REPAIRER Dex Smith APRN, C.N.P. LAB BLOOD ADD-ON Performing Organization Address City/State/ZIP Code Phon e Number [facility] - [address] (ABNORMAL) Calcium, Ionized (06/14/2013 1:45 AM AVIATION SUPPORT EQUIPMENT REPAIRER) [facility] Signature Calcium, 6.52 (>) 4.65 - [facility] Ionized, B 5.30 LABORATORIES - MG/DL [employer] [place] [employer] [facility] Specimen Anatomical Collection Method Collection Time Receive d Time (Source) Location / / Volume Laterality 06/14/2013 1:45 AM 3 1:45 AVIATION SUPPORT EQUIPMENT REPAIRER AM AVIATION SUPPORT EQUIPMENT REPAIRER Dex Smith APRN, C.N.P. LAB BLOOD NON ADD-ON Performing Organization Address City/[facility]/ZIP Code Phon e Number [facility] - [address] [place] [phone] [place] [employer] [facility] (ABNORMAL) Electrolyte Panel with Creatinine Remy (06/14/2013 1:45 AM AVIATION SUPPORT EQUIPMENT REPAIRER) [facility] Signature BUN (Blood 29 (H) 8 - 24 [facility] Urea MG/DL LABORATORIES - Nitrogen), S [employer] [facility] HX 23 22 - 29 [facility] Bicarbonate, MMOL/L LABORATORIES - P/S [employer] [place] [employer] [facility] Chloride, S 101 100 - 108 [facility] MMOL/L LABORATORIES - [place] [employer] [facility] Sodium, P 131 (L) 135 - 145 [facility] MMOL/L [facility] Potassium, P 4.2 3.6 - 5.2 [facility] MMOL/L [facility] Creatinine, 1.8 (H) 0.9 - 1.4 [facility] Remy MG/DL [facility] - [place] [employer] [facility] Glucose, S 169 (H) 70 - 140 [facility] MG/DL [facility] - [place] [employer] Specimen Anatomical Collection Method Collection Time Receive d Time (Source) Location / / Volume Laterality 06/14/2013 1:45 AM 3 1:45 AVIATION SUPPORT EQUIPMENT REPAIRER AM AVIATION SUPPORT EQUIPMENT REPAIRER Janette Wang APRNNDemetriusPDemetrius LAB BLOOD ADD-ON Performing Organization Address City/State/ZIP Code Phon e Number [facility] - [address] [place], [place] [address] [place] [employer] [facility] (ABNORMAL) Blood Gas with Coox, Arterial (06/14/2013 1:45 AM AVIATION SUPPORT EQUIPMENT REPAIRER) [facility] Signature Arterial Art Line [facility] Sample Site [facility] FIO2 0.21 .21=AIR [facility] pCO2 38 35 - 45 [facility] MM HG [facility] pH 7.41 7.35 - [facility] 7.45 PH [facility] Hb 9.2 (L) 13.5 - [facility] 17.5 G/DL [facility] O2Hb 90.3 (L) 94.0 - [facility] 98.0 % [facility] CtO2 11.7 (L) 21.0 - [facility] 23.0 VOL [facility] Spont. 14 [facility] breaths/min [facility] pO2 64 (L) 80 - 100 [facility] MM HG [facility] Base Excess -1 -2 - 2 [facility] MMOL/L [facility] HCO3 24 22 - 26 [facility] MMOL/L [facility] COHb 1.9 <3.0 % [facility] MetHb 1.0 <1.6 % [facility] Specimen Anatomical Collection Method Collection Time Receive d Time (Source) Location / / Volume Laterality 06/14/2013 1:45 AM 3 1:45 AVIATION SUPPORT EQUIPMENT REPAIRER AM AVIATION SUPPORT EQUIPMENT REPAIRER Dex Smith APRN, Arley.N.P. LAB BLOOD NON ADD-ON Performing Organization Address City/[facility]/ZIP Code Phon e Number [facility] - [address] APTT (Activated Partial Thromboplastin Time) (06/14/2013 1:45 AM AVIATION SUPPORT EQUIPMENT REPAIRER) P athologist Signature APTT, P 29 28 - 38 SEC [facility] Specimen Anatomical Collection Method Collection Time Receive d Time (Source) Location / / Volume Laterality 06/14/2013 1:45 AM 3 1:45 AVIATION SUPPORT EQUIPMENT REPAIRER AM AVIATION SUPPORT EQUIPMENT REPAIRER Arley Wang APRN.N.P. LAB BLOOD ADD-ON Performing Organization Address City/[facility] Phon e Number [facility] - [address] (ABNORMAL) Glucose, POCT (06/13/2013 9:53 PM AVIATION SUPPORT EQUIPMENT REPAIRER) Patholo gist Method Time Signature Glucose, POCT, 159 (H) 70 - 140 [facility] B MG/DL LABORATORIES - [employer] [place] [employer] [facility] Sample Site, [place] [facility] Blood Gas, LABORATORIES - POCT [employer] [facility] Specimen Anatomical Collection Method Collection Time Receive d Time (Source) Location / / Volume Laterality 06/13/2013 9:53 PM 3 9:53 AVIATION SUPPORT EQUIPMENT REPAIRER PM AVIATION SUPPORT EQUIPMENT REPAIRER Historical Provider LAB POCT ORDERABLES-MANUAL Performing Organization Address City/[facility] Phon e Number [facility] - [address] HX intra-Op Auto Tx (06/13/2013 8:26 PM AVIATION SUPPORT EQUIPMENT REPAIRER) Analysis Performed At Patho logist Time Signature HXRBC # UNITS 6.94 [facility] TRANSFUSED [facility] HXRBC UNIT INFO RBC [facility] Comment: Component Type Intraoperative Salvaged R BC Unit Number =[id number] Issue Date/Time Component Type Intraoperative Salvaged R BC Unit Number =[id number] Issue Date/Time Component Type Intraoperative Salvaged R BC Unit Number =[id number] Issue Date/Time Component Type Intraoperative Salvaged R BC Unit Number =[id number] Issue Date/Time Component Type Intraoperative Salvaged R BC Unit Number =[id number] Issue Date/Time Specimen (Source) Anatomical Collection Method Collection Time Re ceived Time Location / / Volume Laterality 06/13/2013 8:26 PM AVIATION SUPPORT EQUIPMENT REPAIRER Historical Provider LAB HISTORICAL ORDERS Performing Organization Address [facility] Phon e Number [facility] - [address] HX intra-Op Auto Tx (06/13/2013 8:26 PM AVIATION SUPPORT EQUIPMENT REPAIRER) Analysis Performed At Path logist Time Signature HXRBC # UNITS 5.72 [facility] TRANSFUSED [facility] HXRBC UNIT INFO RBC [facility] Comment: Component Type Intraoperative Salvaged R BC Unit Number =[id number] Issue Date/Time Component Type Intraoperative Salvaged R BC Unit Number =[id number] Issue Date/Time Component Type Intraoperative Salvaged R BC Unit Number =[id number] Issue Date/Time Component Type Intraoperative Salvaged R BC Unit Number =[id number] Issue Date/Time Component Type Intraoperative Salvaged R BC Unit Number =[id number] Issue Date/Time Specimen (Source) Anatomical Collection Method Collection Time Re ceived Time Location / / Volume Laterality 06/13/2013 8:26 PM AVIATION SUPPORT EQUIPMENT REPAIRER Historical Provider LAB HISTORICAL ORDERS Performing Organization Address [facility] Phon e Number [facility] - [address] [place], [place] [address] [employer] [place] [employer] [facility] (ABNORMAL) Glucose, POCT (06/13/2013 4:55 PM AVIATION SUPPORT EQUIPMENT REPAIRER) [facility] Method Time Signature Glucose, POCT, 178 (H) 70 - 140 [facility] B MG/DL LABORATORIES - [place] [employer] [facility] Sample Site, [place] [facility] Blood Gas, LABORATORIES - POCT [employer] [facility] Specimen Anatomical Collection Method Collection Time Receive d Time (Source) Location / / Volume Laterality 06/13/2013 4:55 PM 3 4:55 AVIATION SUPPORT EQUIPMENT REPAIRER PM AVIATION SUPPORT EQUIPMENT REPAIRER Historical Provider LAB POCT ORDERABLES-MANUAL Performing Organization Address City/State/ZIP Code Phon e Number [facility] - [address] [place] [phone] [place] [employer] [facility] (ABNORMAL) Blood Gas with Coox, Arterial (06/13/2013 4:36 PM AVIATION SUPPORT EQUIPMENT REPAIRER) Patholo gist Method Time Signature Arterial Art Line [facility] Sample Site LABORATORIES [facility] FIO2 0.21 .21=AIR [facility] pCO2 40 35 - 45 [facility] MM HG [facility] pH 7.38 7.35 - [facility] 7.45 PH [facility] Base Excess -1 -2 - 2 [facility] MMOL/L [facility] HCO3 23 22 - 26 [facility] MMOL/L [facility] Hb 8.7 (L) 13.5 - [facility] 17.5 G/DL [facility] O2Hb 86.1 (L) 94.0 - [facility] 98.0 % [facility] COHb 2.0 <3.0 % [facility] MetHb 1.3 <1.6 % [facility] CtO2 10.6 (L) 21.0 - [facility] 23.0 VOL [facility] - % [employer] [facility] Spont. 14 [facility] breaths/min [facility] pO2 56 (L) 80 - 100 [facility] MM HG [facility] Specimen Anatomical Collection Method Collection Time Receive d Time (Source) Location / / Volume Laterality 06/13/2013 4:36 PM 3 4:36 AVIATION SUPPORT EQUIPMENT REPAIRER PM AVIATION SUPPORT EQUIPMENT REPAIRER Otoniel Grijalva P.A.-C., M.S. LAB BLOOD NON ADD-ON Performing Organization Address City/State/ZIP Code Phon e Number [facility] - [address] [place] [phone] [place] [employer] [facility] APTT (Activated Partial Thromboplastin Time) (06/13/2013 1:45 PM AVIATION SUPPORT EQUIPMENT REPAIRER) P athologist Signature APTT, P 33 28 - 38 SEC [facility] Specimen Anatomical Collection Method Collection Time Receive d Time (Source) Location / / Volume Laterality 06/13/2013 1:45 PM 3 1:45 AVIATION SUPPORT EQUIPMENT REPAIRER PM AVIATION SUPPORT EQUIPMENT REPAIRER Arley Wang APRN.N.P. LAB BLOOD ADD-ON Performing Organization Address City/[facility]/ZIP Code Phon e Number [facility] - [address] [place] [phone] [place] [employer] [facility] (ABNORMAL) Calcium, Ionized (06/13/2013 1:45 PM AVIATION SUPPORT EQUIPMENT REPAIRER) [facility] Method Time Signature Calcium, 7.03 (>) 4.65 - [facility] Ionized, B 5.30 LABORATORIES - MG/DL [facility] [employer] [facility] Specimen Anatomical Collection Method Collection Time Receive d Time (Source) Location / / Volume Laterality 06/13/2013 1:45 PM 3 1:45 AVIATION SUPPORT EQUIPMENT REPAIRER PM AVIATION SUPPORT EQUIPMENT REPAIRER Arley Wang APRN.N.P. LAB BLOOD NON ADD-ON Performing Organization Address City/[facility]/ZIP Code Phon e Number [facility] - [address] [place] [phone] [place] [employer] [facility] PT (Prothrombin Time) with INR (06/13/2013 1:45 PM AVIATION SUPPORT EQUIPMENT REPAIRER) [facility] Method [place] Signature Prothrombin 12.9 9.5 - 13.8 [facility] Time, P SEC LABORATORIES - [employer] [place] [employer] [facility] INR 1.1 0.8 - 1.2 [facility] - [place] [employer] [facility] Specimen Anatomical Collection Method Collection Time Receive d Time (Source) Location / / Volume Laterality 06/13/2013 1:45 PM 3 1:45 AVIATION SUPPORT EQUIPMENT REPAIRER PM AVIATION SUPPORT EQUIPMENT REPAIRER Dex Smith APRN, Arley.N.P. LAB BLOOD ADD-ON Performing Organization Address City/[facility] Phon e Number [facility] - [address] [place] [phone] [employer] [facility] (ABNORMAL) Electrolyte (Chem 4) Panel (06/13/2013 1:45 PM AVIATION SUPPORT EQUIPMENT REPAIRER) [facility] Method [place] Signature Sodium, P 135 135 - 145 [facility] MMOL/L LABORATORIES - [employer] [facility] Potassium, P 4.0 3.6 - 5.2 [facility] MMOL/L LABORATORIES - [facility] [employer] [facility] eGFR 42 (L) >60 [facility] Non-Black/Afric ML/MIN/BS LABORATORIES - an Monegasque A [employer] [facility] eGFR-Black/Afri 50 (L) >60 [facility] can Monegasque ML/MIN/BS LABORATORIES - A [employer] [facility] Chloride, S 103 100 - 108 [facility] MMOL/L LABORATORIES [facility] BUN (Blood Urea 23 8 - 24 [facility] Nitrogen), S MG/DL LABORATORIES [facility] HX Bicarbonate, 23 22 - 29 [facility] P/S MMOL/L [facility] Creatinine 1.7 (H) 0.8 - 1.3 [facility] MG/DL [facility] Glucose, S 142 (H) 70 - 140 [facility] MG/DL LABORATORIES - [employer] [place] [employer] [facility] Specimen Anatomical Collection Method Collection Time Receive d Time (Source) Location / / Volume Laterality 06/13/2013 1:45 PM 3 1:45 AVIATION SUPPORT EQUIPMENT REPAIRER PM AVIATION SUPPORT EQUIPMENT REPAIRER Dex Smith APRN, C.N.P. LAB BLOOD ADD-ON Performing Organization Address City/State/ZIP Code Phon e Number [facility] - [address] [place], [place] [address] [employer] [facility] (ABNORMAL) Blood Gas with Coox, Arterial (06/13/2013 1:45 PM AVIATION SUPPORT EQUIPMENT REPAIRER) [facility] gist Method Time Signature pCO2 38 35 - 45 [facility] MM HG LABORATORIES [facility] pH 7.41 7.35 - [facility] 7.45 PH [facility] Base Excess 0 -2 - 2 [facility] MMOL/L [facility] HCO3 24 22 - 26 [facility] MMOL/L [facility] COHb 1.9 <3.0 % [facility] MetHb 1.3 <1.6 % [facility] Arterial Art Line [facility] Sample Site LABORATORIES - [employer] [facility] pO2 72 (L) 80 - 100 [facility] MM HG LABORATORIES [facility] Hb 7.7 (L) 13.5 - [facility] 17.5 G/DL [facility] O2Hb 92.3 (L) 94.0 - [facility] 98.0 % LABORATORIES [facility] CtO2 10.1 (L) 21.0 - [facility] 23.0 VOL LABORATORIES - [facility] Specimen Anatomical Collection Method Collection Time Receive d Time (Source) Location / / Volume Laterality 06/13/2013 1:45 PM 3 1:45 AVIATION SUPPORT EQUIPMENT REPAIRER PM AVIATION SUPPORT EQUIPMENT REPAIRER Dex Smith APRN, C.N.P. LAB BLOOD NON ADD-ON Performing Organization Address City/State/ZIP Code Phon e Number [facility] - [address] [place] [phone] [employer] [facility] (ABNORMAL) CBC without Differential (06/13/2013 1:45 PM AVIATION SUPPORT EQUIPMENT REPAIRER) [facility] Method Time Signature Hemoglobin 7.6 (L) 13.5 - [facility] 17.5 G/DL LABORATORIES - [facility] [employer] [facility] Hematocrit 20.7 (L) 38.8 - [facility] 50.0 % LABORATORIES - [employer] [facility] Leukocytes 6.5 3.5 - [facility] 10.5 LABORATORIES - X10(9)/L [facility] [employer] [facility] Erythrocytes 2.48 (L) 4.32 - [facility] 5.72 LABORATORIES - X10(12)/L [facility] [employer] [facility] MCV 83.5 81.2 - [facility] 95.1 FL LABORATORIES - [employer] RBC Distrib 14.9 11.8 - [facility] Width 15.6 % LABORATORIES - [employer] [facility] Platelet Count 49 (L) 150 - 450 [facility] X10(9)/L [facility] - [employer] [facility] Specimen Anatomical Collection Method Collection Time Receive d Time (Source) Location / / Volume Laterality 06/13/2013 1:45 PM 3 1:45 AVIATION SUPPORT EQUIPMENT REPAIRER PM AVIATION SUPPORT EQUIPMENT REPAIRER Dex Smith APRN, C.N.P. LAB BLOOD ADD-ON Performing Organization Address City/State/ZIP Code Phon e Number [facility] - [address] [place] [phone] [employer] (ABNORMAL) Fibrinogen (06/13/2013 1:45 PM AVIATION SUPPORT EQUIPMENT REPAIRER) [facility] Method [place] Signature Fibrinogen, P 167 (L) 200 - 375 [facility] MG/DL [facility] - [employer] [facility] Specimen Anatomical Collection Method Collection Time Receive d Time (Source) Location / / Volume Laterality 06/13/2013 1:45 PM 3 1:45 AVIATION SUPPORT EQUIPMENT REPAIRER PM AVIATION SUPPORT EQUIPMENT REPAIRER Dex Smith APRN, C.N.P. LAB BLOOD ADD-ON Performing Organization Address City/[facility]/ZIP Code Phon e Number [facility] - [address] [place] [phone] [employer] [facility] Glucose, POCT (06/13/2013 1:41 PM AVIATION SUPPORT EQUIPMENT REPAIRER) [facility] Method [place] Signature Glucose, POCT, 120 70 - 140 [facility] B MG/DL [facility] Sample Site, [facility] Blood Gas, LABORATORIES - POCT [employer] Specimen Anatomical Collection Method Collection Time Receive d Time (Source) Location / / Volume Laterality 06/13/2013 1:41 PM 3 1:41 AVIATION SUPPORT EQUIPMENT REPAIRER PM AVIATION SUPPORT EQUIPMENT REPAIRER Historical Provider LAB POCT ORDERABLES-MANUAL Performing Organization Address City/[facility]/ZIP Code Phon e Number [facility]IES - [address] [place], [place] [address] [employer] [facility] Glucose, POCT (06/13/2013 12:49 PM AVIATION SUPPORT EQUIPMENT REPAIRER) [facility] gist Method Time Signature Glucose, POCT, 123 70 - 140 [facility] B MG/DL LAB[facility]ATORIES - [facility] [employer] [facility] Sample Site, [facility] Blood Gas, LABORATORIES - POCT [facility] [employer] [facility] Specimen Anatomical Collection Method Collection Time Receive d Time (Source) Location / / Volume Laterality 06/13/2013 12:49 06/13/2013 PM AVIATION SUPPORT EQUIPMENT REPAIRER 12:49 PM AVIATION SUPPORT EQUIPMENT REPAIRER Historical Provider LAB POCT ORDERABLES-MANUAL Performing Organization Address City/[facility]/ZIP Code Phon e Number [facility] LAB[facility]ATORIES - [address], [place] [address] [employer] [facility] Glucose, POCT (06/13/2013 12:04 PM AVIATION SUPPORT EQUIPMENT REPAIRER) [facility] Method Time Signature Glucose, POCT, 131 70 - 140 [facility] B MG/DL LABORATORIES - [facility] [employer] [facility] Sample Site, [facility] Blood Gas, LABORATORIES - POCT [facility] [employer] [facility] Specimen Anatomical Collection Method Collection Time Receive d Time (Source) Location / / Volume Laterality 06/13/2013 12:04 06/13/2013 PM AVIATION SUPPORT EQUIPMENT REPAIRER 12:04 PM AVIATION SUPPORT EQUIPMENT REPAIRER Historical Provider LAB POCT ORDERABLES-MANUAL Performing Organization Address City/State/ZIP [facility] Phon e Number [facility]IES - [address], [place] [address] [facility] [employer] [facility] (ABNORMAL) Glucose, POCT (06/13/2013 10:39 AM AVIATION SUPPORT EQUIPMENT REPAIRER) [facility] gist Method Time Signature Glucose, POCT, 179 (H) 70 - 140 [facility] B MG/DL LABORATORIES - [employer] [facility] Sample Site, [facility] Blood Gas, LABORATORIES - POCT [facility] [employer] [facility] Specimen Anatomical Collection Method Collection Time Receive d Time (Source) Location / / Volume Laterality 06/13/2013 10:39 06/13/2013 AM AVIATION SUPPORT EQUIPMENT REPAIRER 10:39 AM AVIATION SUPPORT EQUIPMENT REPAIRER Historical Provider LAB POCT ORDERABLES-MANUAL Performing Organization Address City/[facility]/ZIP Code Phon e Number [facility] - [address] [place] [phone] [facility] [employer] [facility] (ABNORMAL) Glucose, POCT (06/13/2013 9:39 AM AVIATION SUPPORT EQUIPMENT REPAIRER) [facility] Method Time Signature Glucose, POCT, 168 (H) 70 - 140 [facility] B MG/DL LABORATORIES - [employer] Sample Site, [facility] Blood Gas, LABORATORIES - POCT [facility] [employer] [facility] Specimen Anatomical Collection Method Collection Time Receive d Time (Source) Location / / Volume Laterality 06/13/2013 9:39 AM 3 9:39 AVIATION SUPPORT EQUIPMENT REPAIRER AM AVIATION SUPPORT EQUIPMENT REPAIRER Historical Provider LAB POCT ORDERABLES-MANUAL Performing Organization Address City/[facility]/ZIP Code Phon e Number [facility] - [address] [place] [phone] [facility] [employer] [facility] (ABNORMAL) Glucose, POCT (06/13/2013 8:43 AM AVIATION SUPPORT EQUIPMENT REPAIRER) [facility] Method Time Signature Glucose, POCT, 166 (H) 70 - 140 [facility] B MG/DL LABORATORIES - [facility] [employer] [facility] Sample Site, [facility] Blood Gas, LABORATORIES - POCT [facility] [employer] [facility] Specimen Anatomical Collection Method Collection Time Receive d Time (Source) Location / / Volume Laterality 06/13/2013 8:43 AM 3 8:43 AVIATION SUPPORT EQUIPMENT REPAIRER AM AVIATION SUPPORT EQUIPMENT REPAIRER Historical Provider LAB POCT ORDERABLES-MANUAL Performing Organization Address City/[facility]/ZIP [facility] Phon e Number [facility] - [address] [place] [phone] [facility] [employer] [facility] US Abdomen Limited plus Abdomen Doppler (06/13/2013 8:28 AM AVIATION SUPPORT EQUIPMENT REPAIRER) Anatomical Region Laterality Modality Abdomen N/A Ultrasound Specimen (Source) Anatomical Collection Method Collection Time Re ceived Time Location / / Volume Laterality 06/13/2013 8:28 AM AVIATION SUPPORT EQUIPMENT REPAIRER Narrative 06/13/2013 9:37 AM AVIATION SUPPORT EQUIPMENT REPAIRER 13-Jun-2013 08:28:00 ??Exam: US Abd Lmtd with Doppler Cmpl Indications: follow up exam folliwing tx eval post op liver tx ORIGINAL REPORT - 13-Jun-2013 09:37:00 US Abdomen Limited with color and spectr al Doppler analysis: Liver transplant:.... ??Normal. ?? Gallbladder:...........Absent. Bile ducts:............ Prominent centra l intrahepatic bile ducts. Common duct not dilated. Doppler:...............Hepatic arteries patent with normal waveforms. Hepatic arterial resistive indices measure 0.55 to 0.76. Elevated velocity in the main portal vein in the region of the anastomosis, measuring up to 142 cm/sec. This could indicate an anastomotic stenosis. Proximal to this the portal vein velocity is 37 cm/sec. There is slow bidirectional flow in the left portal vein, the direction changing phase of respiration. He mainly right portal vein IVC:......................Normal. Pancreas:..............Normal where seen . ?? A small amount of ascites. Right pleural effusion Electronically signed by: ?? Santana Lau M.D. [id number] 13-Jun-2013 0 9:37 Procedure Note Santana Lau M.B., Ch.B. - 09/19/2017 13-Jun-2013 08:28:00 Exam: US Abd Lmtd w ith Doppler Cmpl Indications: follow up exam folliwing tx eval post op liver tx ORIGINAL REPORT - 13-Jun-2013 09:37:00 US Abdomen Limited with color and spectr al Doppler analysis: Liver transplant:.... Normal. Gallbladder:...........Absent. Bile ducts:............ Prominent centra l intrahepatic bile ducts. Common duct not dilated. Doppler:...............Hepatic arteries patent with normal waveforms. Hepatic arterial resistive indices measure 0.55 to 0.76. Elevated velocity in the main portal vein in the region of the anastomosis, measuring up to 142 cm/sec. This could indicate an anast omotic stenosis. Proximal to this the portal vein velocity is 37 cm/sec. There is slow bidirectional flow in the left portal vein, the direction changing phase of respiration. He mainly right portal vein IVC:......................Normal. Pancreas:..............Normal where seen . A small amount of ascites. Right pleural effusion Electronically signed by: Santana Lau M.D. [id number] 13-Jun-2013 0 9:37 Luis Felipe Barron IMG US PROCEDURES (ABNORMAL) CBC without Differential (06/13/2013 7:40 AM AVIATION SUPPORT EQUIPMENT REPAIRER) [facility] Method Time Signature Hemoglobin 8.1 (L) 13.5 - [facility] 17.5 G/DL LABORATORIES - [employer] [facility] [employer] [facility] Hematocrit 22.4 (L) 38.8 - [facility] 50.0 % LABORATORIES - [facility] [employer] [facility] RBC Distrib 14.6 11.8 - [facility] Width 15.6 % [facility] Platelet Count 61 (L) 150 - 450 [facility] X10(9)/L LABORATORIES - [employer] [facility] Erythrocytes 2.69 (L) 4.32 - [facility] 5.72 LABORATORIES - X10(12)/L [facility] [employer] [facility] MCV 83.3 81.2 - [facility] 95.1 FL LABORATORIES - [employer] [facility] Leukocytes 4.2 3.5 - [facility] 10.5 LABORATORIES - X10(9)/L [facility] [employer] [facility] Specimen Anatomical Collection Method Collection Time Receive d Time (Source) Location / / Volume Laterality 06/13/2013 7:40 AM 3 7:40 AVIATION SUPPORT EQUIPMENT REPAIRER AM AVIATION SUPPORT EQUIPMENT REPAIRER Historical Provider LAB BLOOD ADD-ON Performing Organization Address City/State/ZIP Code Phon e Number [facility] - [address], [place] [address] [employer] [facility] [employer] [facility] (ABNORMAL) PT (Prothrombin Time) with INR (06/13/2013 7:40 AM AVIATION SUPPORT EQUIPMENT REPAIRER) [facility] Method Time Signature Prothrombin 14.7 (H) 9.5 - [facility] Time, P 13.8 SEC LABORATORIES - [employer] [facility] INR 1.3 0.8 - 1.2 [facility] LABORATORIES - [employer] Specimen Anatomical Collection Method Collection Time Receive d Time (Source) Location / / Volume Laterality 06/13/2013 7:40 AM 3 7:40 AVIATION SUPPORT EQUIPMENT REPAIRER AM AVIATION SUPPORT EQUIPMENT REPAIRER Historical Provider LAB BLOOD ADD-ON Performing Organization Address City/State/ZIP Code Phon e Number [facility] - [address] [place], [place] [address] [facility] [employer] [facility] (ABNORMAL) Calcium, Ionized (06/13/2013 7:40 AM AVIATION SUPPORT EQUIPMENT REPAIRER) [facility] Method Time Signature Calcium, 7.31 (>) 4.65 - [facility] Ionized, B 5.30 LABORATORIES - MG/DL [facility] [employer] [facility] Specimen Anatomical Collection Method Collection Time Receive d Time (Source) Location / / Volume Laterality 06/13/2013 7:40 AM 3 7:40 AVIATION SUPPORT EQUIPMENT REPAIRER AM AVIATION SUPPORT EQUIPMENT REPAIRER Historical Provider LAB BLOOD NON ADD-ON Performing Organization Address City/State/ZIP Code Phon e Number [facility] - [address], [place] [address] [facility] [employer] [facility] (ABNORMAL) Fibrinogen (06/13/2013 7:40 AM AVIATION SUPPORT EQUIPMENT REPAIRER) [facility] Method Time Signature Fibrinogen, P 167 (L) 200 - 375 [facility] MG/DL LABORATORIES - [facility] [employer] [facility] Specimen Anatomical Collection Method Collection Time Receive d Time (Source) Location / / Volume Laterality 06/13/2013 7:40 AM 3 7:40 AVIATION SUPPORT EQUIPMENT REPAIRER AM AVIATION SUPPORT EQUIPMENT REPAIRER Historical Provider LAB BLOOD ADD-ON Performing Organization Address City/State/ZIP [facility] Phon e Number [facility]IES - [address] [place] [phone] [facility] [employer] [facility] (ABNORMAL) Thromboelastograph, Kaolin, Blood (06/13/2013 7:40 AM AVIATION SUPPORT EQUIPMENT REPAIRER) [facility] Method Time Signature R + K 9.7 4.9 - 10.8 [facility] MIN LABORATORIES [facility] Angle 61.2 (L) 64.0 - 78.1 [facility] DEGREES LABORATORIES [facility] R Time 7.6 4.0 - 9.0 [facility] MIN LABORATORIES [facility] K Time 2.1 (H) 1.0 - 1.8 [facility] MIN LABORATORIES [facility] Maximum 52.8 (L) 57.1 - 72.6 [facility] Amplitude MM LABORATORIES [facility] Ly30 0.0 0.0 - 4.8 % [facility] Specimen Anatomical Collection Method Collection Time Receive d Time (Source) Location / / Volume Laterality 06/13/2013 7:40 AM 3 7:40 AVIATION SUPPORT EQUIPMENT REPAIRER AM AVIATION SUPPORT EQUIPMENT REPAIRER Historical Provider LAB BLOOD NON ADD-ON Performing Organization Address City/State/ZIP Code Phon e Number [facility] - [address] [place] [phone] [facility] [employer] [facility] (ABNORMAL) Electrolyte Panel with Creatinine Remy (06/13/2013 7:40 AM AVIATION SUPPORT EQUIPMENT REPAIRER) [facility] Method Time Signature Sodium, P 138 135 - 145 [facility] MMOL/L LABORATORIES - [facility] [employer] [facility] Potassium, P 4.2 3.6 - 5.2 [facility] MMOL/L LABORATORIES - [facility] [employer] [facility] Creatinine, 1.7 (H) 0.9 - 1.4 [facility] Remy MG/DL LABORATORIES - [employer] [facility] Glucose, S 178 (H) 70 - 140 [facility] MG/DL LABORATORIES - [facility] [employer] [facility] Chloride, S 106 100 - 108 [facility] MMOL/L LABORATORIES - [employer] [facility] BUN (Blood 22 8 - 24 [facility] Urea MG/DL LABORATORIES - Nitrogen), S [facility] [employer] HX 22 22 - 29 [facility] Bicarbonate, MMOL/L LABORATORIES - P/S [employer] [facility] [employer] [facility] Specimen Anatomical Collection Method Collection Time Receive d Time (Source) Location / / Volume Laterality 06/13/2013 7:40 AM 3 7:40 AVIATION SUPPORT EQUIPMENT REPAIRER AM AVIATION SUPPORT EQUIPMENT REPAIRER Historical Provider LAB BLOOD ADD-ON Performing Organization Address City/[facility] Code Phon e Number [facility] LABORATORIES - [address] [place] [phone] [employer] [facility] (ABNORMAL) Blood Gas with Coox, Arterial (06/13/2013 7:40 AM AVIATION SUPPORT EQUIPMENT REPAIRER) [facility] Method Time Signature Arterial Art Line [facility] Sample Site LABORATORIES - [facility] [employer] [facility] FIO2 0.21 .21=AIR [facility] pCO2 34 (L) 35 - 45 [facility] MM HG [facility] pH 7.45 7.35 - [facility] 7.45 PH [facility] Hb 8.3 (L) 13.5 - [facility] 17.5 G/DL [facility] O2Hb 92.0 (L) 94.0 - [facility] 98.0 % [facility] COHb 2.0 <3.0 % [facility] LABORATORIES [facility] MetHb <1.0 <1.6 % [facility] LABORATORIES [facility] CtO2 10.8 (L) 21.0 - [facility] 23.0 VOL LABORATORIES - % [facility] Spont. talk [facility] breaths/min LABORATORIES - [facility] [employer] [facility] pO2 66 (L) 80 - 100 [facility] MM HG LABORATORIES - [facility] [employer] [facility] Base Excess 0 -2 - 2 [facility] MMOL/L LABORATORIES - [facility] [employer] [facility] HCO3 24 22 - 26 [facility] MMOL/L LABORATORIES - [facility] [employer] [facility] Specimen Anatomical Collection Method Collection Time Receive d Time (Source) Location / / Volume Laterality 06/13/2013 7:40 AM 3 7:40 AVIATION SUPPORT EQUIPMENT REPAIRER AM AVIATION SUPPORT EQUIPMENT REPAIRER Historical Provider LAB BLOOD NON ADD-ON Performing Organization Address City/[facility]/ZIP [facility] Phon e Number [facility] LABORATORIES - [address] [place] [phone] [facility] [employer] APTT (Activated Partial Thromboplastin Time) (06/13/2013 7:40 AM AVIATION SUPPORT EQUIPMENT REPAIRER) P athologist Signature APTT, P 34 28 - 38 SEC [facility] LABORATORIES - [facility] [employer] [facility] Specimen Anatomical Collection Method Collection Time Receive d Time (Source) Location / / Volume Laterality 06/13/2013 7:40 AM 3 7:40 AVIATION SUPPORT EQUIPMENT REPAIRER AM AVIATION SUPPORT EQUIPMENT REPAIRER Historical Provider LAB BLOOD ADD-ON Performing Organization Address City/[facility] Phon e Number [facility]IES - [address] [place] [phone] [facility] [employer] [facility] (ABNORMAL) Glucose, POCT (06/13/2013 7:38 AM AVIATION SUPPORT EQUIPMENT REPAIRER) [facility] Method Time Signature Glucose, POCT, 159 (H) 70 - 140 [facility] B MG/DL LABORATORIES - [facility] [employer] [facility] Specimen Anatomical Collection Method Collection Time Receive d Time (Source) Location / / Volume Laterality 06/13/2013 7:38 AM 3 7:38 AVIATION SUPPORT EQUIPMENT REPAIRER AM AVIATION SUPPORT EQUIPMENT REPAIRER Historical Provider LAB POCT ORDERABLES-MANUAL Performing Organization Address City/[facility] Phon e Number [facility]IES - [address] [place] [phone] [facility] [employer] [facility] (ABNORMAL) Glucose, POCT (06/13/2013 6:42 AM AVIATION SUPPORT EQUIPMENT REPAIRER) [facility] Method Time Signature Glucose, POCT, 153 (H) 70 - 140 [facility] B MG/DL LABORATORIES - [facility] [employer] [facility] Sample Site, [facility] Blood Gas, LABORATORIES - POCT [employer] [facility] Specimen Anatomical Collection Method Collection Time Receive d Time (Source) Location / / Volume Laterality 06/13/2013 6:42 AM 3 6:42 AVIATION SUPPORT EQUIPMENT REPAIRER AM AVIATION SUPPORT EQUIPMENT REPAIRER Historical Provider LAB POCT ORDERABLES-MANUAL Performing Organization Address City/[facility] Phon e Number [facility]IES - [address] [place], [place] [address] [facility] [employer] [facility] (ABNORMAL) Glucose, POCT (06/13/2013 5:48 AM AVIATION SUPPORT EQUIPMENT REPAIRER) [facility] Method Time Signature Glucose, POCT, 144 (H) 70 - 140 [facility] B MG/DL LABORATORIES - [facility] [employer] [facility] Sample Site, [facility] Blood Gas, LABORATORIES - POCT [employer] [facility] [employer] [facility] Specimen Anatomical Collection Method Collection Time Receive d Time (Source) Location / / Volume Laterality 06/13/2013 5:48 AM 3 5:48 AVIATION SUPPORT EQUIPMENT REPAIRER AM AVIATION SUPPORT EQUIPMENT REPAIRER Historical Provider LAB POCT ORDERABLES-MANUAL Performing Organization Address [facility] Phon e Number [facility]IES - [address] [place], [place] [address] [employer] [facility] [employer] [facility] Glucose, POCT (06/13/2013 4:34 AM AVIATION SUPPORT EQUIPMENT REPAIRER) [facility] Method Time Signature Glucose, POCT, 104 70 - 140 [facility] B MG/DL LABORATORIES - [facility] [employer] [facility] Sample Site, [facility] Blood Gas, LABORATORIES - POCT [facility] [employer] [facility] Specimen Anatomical Collection Method Collection Time Receive d Time (Source) Location / / Volume Laterality 06/13/2013 4:34 AM 3 4:34 AVIATION SUPPORT EQUIPMENT REPAIRER AM AVIATION SUPPORT EQUIPMENT REPAIRER Historical Provider LAB POCT ORDERABLES-MANUAL Performing Organization Address City/[facility]/ZIP Code Phon e Number [facility]IES - [address], [place] [address] [facility] [employer] [facility] (ABNORMAL) Calcium, Ionized (06/13/2013 3:34 AM AVIATION SUPPORT EQUIPMENT REPAIRER) [facility] Method Time Signature Calcium, 7.39 (>) 4.65 - [facility] Ionized, B 5.30 LABORATORIES - MG/DL [facility] [employer] Specimen Anatomical Collection Method Collection Time Receive d Time (Source) Location / / Volume Laterality 06/13/2013 3:34 AM 3 3:34 AVIATION SUPPORT EQUIPMENT REPAIRER AM AVIATION SUPPORT EQUIPMENT REPAIRER Dex Smith APRN, C.N.P. LAB BLOOD NON ADD-ON Performing Organization Address City/[facility]/ZIP Code Phon e Number [facility] - [address] [place] [phone] [employer] [facility] (ABNORMAL) Blood Gas with Coox, Arterial (06/13/2013 3:34 AM AVIATION SUPPORT EQUIPMENT REPAIRER) [facility] Method Time Signature Arterial Sample Art Line [facility] Site [facility] FIO2 0.40 .21=AIR [facility] Spont. 0 [facility] breaths/min [facility] Mech. 18 [facility] breaths/min [facility] End Expiratory 5.0 CM H2O [facility] Pressure [facility] Min. 12.4 [facility] Ventilation [facility] pO2 139 (H) 80 - 100 [facility] MM HG [facility] pCO2 34 (L) 35 - 45 [facility] MM HG [facility] pH 7.41 7.35 - [facility] 7.45 PH [facility] Base Excess -3 (L) -2 - 2 [facility] MMOL/L [facility] HCO3 21 (L) 22 - 26 [facility] MMOL/L [facility] Hb 10.4 (L) 13.5 - [facility] 17.5 G/DL [facility] O2Hb 95.8 94.0 - [facility] 98.0 % [facility] COHb 1.7 <3.0 % [facility] MetHb 1.5 <1.6 % [facility] CtO2 14.3 (L) 21.0 - [facility] 23.0 VOL [facility] Device Vent [facility] Vent Mode AC [facility] Specimen Anatomical Collection Method Collection Time Receive d Time (Source) Location / / Volume Laterality 06/13/2013 3:34 AM 3 3:34 AVIATION SUPPORT EQUIPMENT REPAIRER AM AVIATION SUPPORT EQUIPMENT REPAIRER Dex Smith APRN, C.N.P. LAB BLOOD NON ADD-ON Performing Organization Address City/State/ZIP Code Phon e Number [facility] - [address] [place] [phone] [employer] [facility] [employer] [facility] (ABNORMAL) Electrolyte (Chem 4) Panel (06/13/2013 3:34 AM AVIATION SUPPORT EQUIPMENT REPAIRER) [facility] Method Time Signature Sodium, P 138 135 - 145 [facility] MMOL/L [facility] Potassium, P 4.1 3.6 - 5.2 [facility] MMOL/L LABORATORIES - [facility] [employer] [facility] Creatinine 1.5 (H) 0.8 - 1.3 [facility] MG/DL LABORATORIES - [facility] [employer] [facility] eGFR 48 (L) >60 [facility] Non-Black/Afric ML/MIN/BS LABORATORIES - an [place]gas[place] A [facility] [employer] [facility] Chloride, S 106 100 - 108 [facility] MMOL/L LABORATORIES - [employer] [facility] BUN (Blood Urea 20 8 - 24 [facility] Nitrogen), S MG/DL LABORATORIES - [employer] [facility] HX Bicarbonate, 20 (L) 22 - 29 [facility] P/S MMOL/L LABORATORIES - [facility] [employer] [facility] eGFR-Black/Afri 58 (L) >60 [facility] can [place] ML/MIN/BS LABORATORIES - A [facility] [employer] [facility] Glucose, S 141 (H) 70 - 140 [facility] MG/DL LABORATORIES - [facility] [employer] [facility] Specimen Anatomical Collection Method Collection Time Receive d Time (Source) Location / / Volume Laterality 06/13/2013 3:34 AM 3 3:34 AVIATION SUPPORT EQUIPMENT REPAIRER AM AVIATION SUPPORT EQUIPMENT REPAIRER Janette Wang APRNNDemetriusP. LAB BLOOD ADD-ON Performing Organization Address City/State/ZIP Code Phon e Number [facility] - [address] [place] [phone] [employer] [facility] Glucose, POCT (06/13/2013 3:16 AM AVIATION SUPPORT EQUIPMENT REPAIRER) Patholo gist Method Time Signature Glucose, POCT, 133 70 - 140 [facility] B MG/DL LABORATORIES - [employer] [facility] Sample Site, ARTLINE [facility] Blood Gas, LABORATORIES - POCT [employer] Specimen Anatomical Collection Method Collection Time Receive d Time (Source) Location / / Volume Laterality 06/13/2013 3:16 AM 3 3:16 AVIATION SUPPORT EQUIPMENT REPAIRER AM AVIATION SUPPORT EQUIPMENT REPAIRER Historical Provider LAB POCT ORDERABLES-MANUAL Performing Organization Address City/State/[facility] Phon e Number [facility] - [address] [place] [phone] [employer] APTT (Activated Partial Thromboplastin Time) (06/13/2013 3:10 AM AVIATION SUPPORT EQUIPMENT REPAIRER) P athologist Signature APTT, P 34 28 - 38 SEC [facility] Comment: Drawn From Arterial Line Specimen Anatomical Collection Method Collection Time Receive d Time (Source) Location / / Volume Laterality 06/13/2013 3:10 AM 3 3:10 AVIATION SUPPORT EQUIPMENT REPAIRER AM AVIATION SUPPORT EQUIPMENT REPAIRER Narrative [facility] - 06/13/2013 3:28 AM AVIATION SUPPORT EQUIPMENT REPAIRER Drawn From Arterial Line Dex Smith APRN, Arley.N.P. LAB BLOOD ADD-ON Performing Organization Address City/[facility]/ZIP Code Phon e Number [facility] - [address] [place] [phone] [employer] [facility] (ABNORMAL) PT (Prothrombin Time) with INR (06/13/2013 3:10 AM AVIATION SUPPORT EQUIPMENT REPAIRER) [facility] Signature Prothrombin 15.2 (H) 9.5 - [facility] Time, P 13.8 SEC [facility] Comment: Drawn From Arterial Line INR 1.4 0.8 - 1.2 [facility] - [employer] Comment: Drawn From Arterial Line Specimen Anatomical Collection Method Collection Time Receive d Time (Source) Location / / Volume Laterality 06/13/2013 3:10 AM 3 3:10 AVIATION SUPPORT EQUIPMENT REPAIRER AM AVIATION SUPPORT EQUIPMENT REPAIRER Narrative [facility] - 06/13/2013 3:28 AM AVIATION SUPPORT EQUIPMENT REPAIRER Drawn From Arterial Line Dex Smith APRN, C.N.P. LAB BLOOD ADD-ON Performing Organization Address City/[facility]/ZIP Code Phon e Number [facility] - [address] [place] [phone] [employer] [facility] (ABNORMAL) Fibrinogen (06/13/2013 3:10 AM AVIATION SUPPORT EQUIPMENT REPAIRER) [facility] Signature Fibrinogen, P 193 (L) 200 - 375 [facility] MG/DL [facility] Comment: Drawn From Arterial Line Specimen Anatomical Collection Method Collection Time Receive d Time (Source) Location / / Volume Laterality 06/13/2013 3:10 AM 3 3:10 AVIATION SUPPORT EQUIPMENT REPAIRER AM AVIATION SUPPORT EQUIPMENT REPAIRER Narrative [facility] - 06/13/2013 3:29 AM AVIATION SUPPORT EQUIPMENT REPAIRER Drawn From Arterial Line Dex Smith APRN, Arley.N.P. LAB BLOOD ADD-ON Performing Organization Address City/[facility]/ZIP Code Phon e Number [facility] - [address] [place] [phone] [employer] [facility] (ABNORMAL) CBC without Differential (06/13/2013 3:10 AM AVIATION SUPPORT EQUIPMENT REPAIRER) Patholo gist Method Time Signature Erythrocytes 3.42 (L) 4.32 - [facility] 5.72 LABORATORIES - X10(12)/L [employer] [facility] Comment: Drawn From Arterial Line MCV 84.5 81.2 - 95.1 FL [facility] Comment: Drawn From Arterial Line RBC Distrib Width 14.7 11.8 - 15.6 % [facility] Comment: Drawn From Arterial Line Platelet Count 147 (L) 150 - 450 X10(9)/L [facility] Comment: Drawn From Arterial Line Hemoglobin 10.3 (L) 13.5 - 17.5 G/DL [facility] Comment: Drawn From Arterial Line Hematocrit 28.9 (L) 38.8 - 50.0 % [facility] Comment: Drawn From Arterial Line Leukocytes 6.1 3.5 - 10.5 X10(9)/L [facility] Comment: Drawn From Arterial Line Specimen Anatomical Collection Method Collection Time Receive d Time (Source) Location / / Volume Laterality 06/13/2013 3:10 AM 3 3:10 AVIATION SUPPORT EQUIPMENT REPAIRER AM AVIATION SUPPORT EQUIPMENT REPAIRER Narrative [facility] - 06/13/2013 3:22 AM AVIATION SUPPORT EQUIPMENT REPAIRER Drawn From Arterial Line Dex Smith APRN, C.N.P. LAB BLOOD ADD-ON Performing Organization Address City/State/ZIP Code Phon e Number [facility] - [address] [place] [phone] [employer] [facility] DX Chest Portable 1 View (06/13/2013 2:07 AM AVIATION SUPPORT EQUIPMENT REPAIRER) Anatomical Region Laterality Modality Chest N/A Radiographic Imaging Specimen (Source) Anatomical Collection Method Collection Time Re ceived Time Location / / Volume Laterality 06/13/2013 2:07 AM AVIATION SUPPORT EQUIPMENT REPAIRER Narrative 06/13/2013 7:08 AM AVIATION SUPPORT EQUIPMENT REPAIRER 13-Jun-2013 02:07:00 ??Exam: Portable-Chest Indications: post-op ORIGINAL REPORT - 13-Jun-2013 02:17:00 Chest; 1 view: ETT with tip in good position. Right IJ SGC tip in the proximal RPA. NGT tip below the diaphragm. Complete hazy opacification of the right hemithorax without significant midline shift likely representin g a mixture of pleural fluid and atelect asis. Surgical clip drains RUQ. Electronically signed by: ?? E. Mimaiggum MD [id number] 13-Jun-2013 02:1 7 I have reviewed the films/images and agr ee with the above interpretation. Electronically signed by: ?? Mayra Wells [id number] 13-Jun-20 13 07:08 Procedure Note Myara Wells M.B., .B. - 13-Jun-2013 02:07:00 Exam: Portable-Ches t Indications: post-op ORIGINAL REPORT - 13-Jun-2013 02:17:00 Chest; 1 view: ETT with tip in good position. Right IJ SGC tip in the proximal RPA. NGT tip below the diaphragm. Complete hazy opacification of the right hemithorax without significant midline shift likely representing a mixture of pleural fluid and atelectasis. Surgic al clip drains RUQ. Electronically signed by: Marah Meier MD [id number] 13-Jun-2013 02:1 7 I have reviewed the films/images and agr ee with the above interpretation. Electronically signed by: Mayra Wells [id number] 13-Jun-20 13 07:08 Dex Smith APRN, C.N.P. IMG DIAGNOSTIC IMAGING P ROCEDURES Alkaline Phosphatase (06/13/2013 1:52 AM AVIATION SUPPORT EQUIPMENT REPAIRER) athologist Signature Alkaline 51 45 - 115 [facility] Phosphatase, S U/L LABORATORIES - [employer] [facility] Comment: Drawn From Arterial Line Specimen Anatomical Collection Method Collection Time Receive d Time (Source) Location / / Volume Laterality 06/13/2013 1:52 AM 3 1:52 AVIATION SUPPORT EQUIPMENT REPAIRER AM AVIATION SUPPORT EQUIPMENT REPAIRER Narrative [facility] - [facility] - 06/13/2013 2:29 AM AVIATION SUPPORT EQUIPMENT REPAIRER Drawn From Arterial Line Dex Smith APRN, C.N.P. LAB BLOOD ADD-ON Performing Organization Address City/State/ZIP Code Phon e Number [facility] - [address] [place], [place] [address] [employer] [facility] (ABNORMAL) Bilirubin, Total (06/13/2013 1:52 AM AVIATION SUPPORT EQUIPMENT REPAIRER) [facility] Signature Bilirubin, 4.8 (H) 0.1 - 1.0 [facility] Total, S MG/DL [facility] Comment: Drawn From Arterial Line Specimen Anatomical Collection Method Collection Time Receive d Time (Source) Location / / Volume Laterality 06/13/2013 1:52 AM 3 1:52 AVIATION SUPPORT EQUIPMENT REPAIRER AM AVIATION SUPPORT EQUIPMENT REPAIRER Narrative [facility] - 06/13/2013 2:29 AM AVIATION SUPPORT EQUIPMENT REPAIRER Drawn From Arterial Line Dex Smith APRN, C.N.P. LAB BLOOD ADD-ON Performing Organization Address City/[facility]/ZIP Code Phon e Number [facility] - [address] [place] [phone] [employer] [facility] (ABNORMAL) pH (06/13/2013 1:52 AM AVIATION SUPPORT EQUIPMENT REPAIRER) P athologist Signature pH 7.34 (L) 7.35 - [facility] 7.45 PH [facility] Comment: Drawn From Arterial Line Specimen Anatomical Collection Method Collection Time Receive d Time (Source) Location / / Volume Laterality 06/13/2013 1:52 AM 3 1:52 AVIATION SUPPORT EQUIPMENT REPAIRER AM AVIATION SUPPORT EQUIPMENT REPAIRER Narrative [facility] - 06/13/2013 2:02 AM AVIATION SUPPORT EQUIPMENT REPAIRER Drawn From Arterial Line Dex Smith APRN, C.N.P. LAB HISTORICAL ORDERS Performing Organization Address City/[facility]/ZIP Code Phon e Number [facility] - [address] (ABNORMAL) Fibrinogen (06/13/2013 1:52 AM AVIATION SUPPORT EQUIPMENT REPAIRER) [facility] Method Time Signature Fibrinogen, P 184 (L) 200 - 375 [facility] MG/DL [facility] Comment: Drawn From Arterial Line Specimen Anatomical Collection Method Collection Time Receive d Time (Source) Location / / Volume Laterality 06/13/2013 1:52 AM 3 1:52 AVIATION SUPPORT EQUIPMENT REPAIRER AM AVIATION SUPPORT EQUIPMENT REPAIRER Narrative [facility] - 06/13/2013 2:07 AM AVIATION SUPPORT EQUIPMENT REPAIRER Drawn From Arterial Line Dex Smith APRN, C.N.P. LAB BLOOD ADD-ON Performing Organization Address City/[facility]/ZIP Code Phon e Number [facility] - [address] (ABNORMAL) APTT (Activated Partial Thromboplastin Time) (06/13/2013 1:52 AM AVIATION SUPPORT EQUIPMENT REPAIRER) athologist Signature APTT, P 42 (H) 28 - 38 SEC [facility] Comment: Drawn From Arterial Line Specimen Anatomical Collection Method Collection Time Receive d Time (Source) Location / / Volume Laterality 06/13/2013 1:52 AM 3 1:52 AVIATION SUPPORT EQUIPMENT REPAIRER AM AVIATION SUPPORT EQUIPMENT REPAIRER Narrative [facility] - 06/13/2013 2:07 AM AVIATION SUPPORT EQUIPMENT REPAIRER Drawn From Arterial Line Dex Smith APRN, C.N.P. LAB BLOOD ADD-ON Performing Organization Address City/[facility] Phon e Number [facility] - [address] [place] [address] [employer] [facility] (ABNORMAL) ALT (Alanine Aminotransferase) (06/13/2013 1:52 AM AVIATION SUPPORT EQUIPMENT REPAIRER) Component Value Ref Test Analysis Performed At [facility] Range Method Time Signature Alanine 224 (H) 7 - 55 [facility] Aminotransferase U/L [facility] - (ALT), S [employer] [facility] Comment: Drawn From Arterial Line Specimen Anatomical Collection Method Collection Time Receive d Time (Source) Location / / Volume Laterality 06/13/2013 1:52 AM 3 1:52 AVIATION SUPPORT EQUIPMENT REPAIRER AM AVIATION SUPPORT EQUIPMENT REPAIRER Narrative [facility] - 06/13/2013 2:29 AM AVIATION SUPPORT EQUIPMENT REPAIRER Drawn From Arterial Line Dex Smith APRN, C.N.P. LAB BLOOD ADD-ON Performing Organization Address City/[facility] Phon e Number [facility] - [address] [place] [address] [employer] [facility] (ABNORMAL) CBC without Differential (06/13/2013 1:52 AM AVIATION SUPPORT EQUIPMENT REPAIRER) athologist [facility] Hemoglobin 10.0 (L) 13.5 - [facility] 17.5 G/DL [facility] Comment: Drawn From Arterial Line Hematocrit 28.6 (L) 38.8 - 50.0 % [facility] Comment: Drawn From Arterial Line RBC Distrib Width 14.7 11.8 - 15.6 % [facility] Comment: Drawn From Arterial Line Platelet Count 139 (L) 150 - 450 X10(9)/L [facility] Comment: Drawn From Arterial Line Leukocytes 5.4 3.5 - 10.5 X10(9)/L [facility] Comment: Drawn From Arterial Line Erythrocytes 3.32 (L) 4.32 - 5.72 X10(12)/L [facility] Comment: Drawn From Arterial Line MCV 86.1 81.2 - 95.1 FL [facility] - [employer] [facility] Comment: Drawn From Arterial Line Specimen Anatomical Collection Method Collection Time Receive d Time (Source) Location / / Volume Laterality 06/13/2013 1:52 AM 3 1:52 AVIATION SUPPORT EQUIPMENT REPAIRER AM AVIATION SUPPORT EQUIPMENT REPAIRER Narrative [facility] - 06/13/2013 1:59 AM AVIATION SUPPORT EQUIPMENT REPAIRER Drawn From Arterial Line Dex Smith APRN, C.N.P. LAB BLOOD ADD-ON Performing Organization Address City/[facility] Phon e Number [facility] [address] (ABNORMAL) Bilirubin, Direct (06/13/2013 1:52 AM AVIATION SUPPORT EQUIPMENT REPAIRER) [facility] gist Method Time Signature Bilirubin, 4.0 (H) 0.0 - 0.3 [facility] Direct, S MG/DL [facility] Comment: Drawn From Arterial Line Specimen Anatomical Collection Method Collection Time Receive d Time (Source) Location / / Volume Laterality 06/13/2013 1:52 AM 3 1:52 AVIATION SUPPORT EQUIPMENT REPAIRER AM AVIATION SUPPORT EQUIPMENT REPAIRER Narrative [facility] - 06/13/2013 2:29 AM AVIATION SUPPORT EQUIPMENT REPAIRER Drawn From Arterial Line Dex Smith APRN, C.N.P. LAB BLOOD ADD-ON Performing Organization Address City/State/[facility] Phon e Number [facility] - [address] [place] [address] [employer] [facility] (ABNORMAL) AST (Aspartate Aminotransferase) (06/13/2013 1:52 AM AVIATION SUPPORT EQUIPMENT REPAIRER) [facility] gist Method Time Signature AST, Total, S 348 (H) 8 - 48 U/L [facility] Comment: Drawn From Arterial Line Specimen Anatomical Collection Method Collection Time Receive d Time (Source) Location / / Volume Laterality 06/13/2013 1:52 AM 3 1:52 AVIATION SUPPORT EQUIPMENT REPAIRER AM AVIATION SUPPORT EQUIPMENT REPAIRER Narrative [facility] - 06/13/2013 2:29 AM AVIATION SUPPORT EQUIPMENT REPAIRER Drawn From Arterial Line Dex Smith APRN, C.N.P. LAB BLOOD ADD-ON Performing Organization Address City/[facility] Phon e Number [facility] - [address] [place] [address] [employer] [facility] (ABNORMAL) Calcium, Ionized (06/13/2013 1:52 AM AVIATION SUPPORT EQUIPMENT REPAIRER) Patholo gist Method Time Signature Calcium, 7.00 (>) 4.65 - [facility] Ionized, B 5.30 LABORATORIES - MG/DL [employer] [facility] Comment: Drawn From Arterial Line Specimen Anatomical Collection Method Collection Time Receive d Time (Source) Location / / Volume Laterality 06/13/2013 1:52 AM 3 1:52 AVIATION SUPPORT EQUIPMENT REPAIRER AM AVIATION SUPPORT EQUIPMENT REPAIRER Narrative [facility] - 06/13/2013 2:02 AM AVIATION SUPPORT EQUIPMENT REPAIRER Drawn From Arterial Line Dex Smith APRN, C.N.P. LAB BLOOD NON ADD-ON Performing Organization Address City/[facility] Phon e Number [facility] - [address] [place] [address] [employer] [facility] (ABNORMAL) Electrolyte (Chem 4) Panel (06/13/2013 1:52 AM AVIATION SUPPORT EQUIPMENT REPAIRER) P athologist Signature Sodium, P 138 135 - 145 [facility] MMOL/L [facility] Comment: Drawn From Arterial Line Potassium, P 4.0 3.6 - 5.2 MMOL/L [facility] Comment: Drawn From Arterial Line Chloride, S 106 100 - 108 MMOL/L [facility] Comment: Drawn From Arterial Line Creatinine 1.4 (H) 0.8 - 1.3 MG/DL [facility] Comment: Drawn From Arterial Line Glucose, S 195 (H) 70 - 140 MG/DL [facility] Comment: Drawn From Arterial Line BUN (Blood Urea Nitrogen), S 19 8 - 24 MG/DL [facility] Comment: Drawn From Arterial Line HX Bicarbonate, P/S 19 (L) 22 - 29 MMOL/L M [facility] Comment: Drawn From Arterial Line eGFR Non-Black/ 52 (L) >60 ML/MIN/BSA [facility] S Comment: Drawn From Arterial Line eGFR-Black/ >60 >60 ML/MIN/BSA [facility] S Comment: Drawn From Arterial Line Specimen Anatomical Collection Method Collection Time Receive d Time (Source) Location / / Volume Laterality 06/13/2013 1:52 AM 3 1:52 AVIATION SUPPORT EQUIPMENT REPAIRER AM AVIATION SUPPORT EQUIPMENT REPAIRER Narrative [facility] - 06/13/2013 2:14 AM AVIATION SUPPORT EQUIPMENT REPAIRER Drawn From Arterial Line Dex Smith APRN, C.N.P. LAB BLOOD ADD-ON Performing Organization Address City/[facility]/ZIP Code Phon e Number [facility] - [address] [place] [phone] [employer] [facility] (ABNORMAL) PT (Prothrombin Time) with INR (06/13/2013 1:52 AM AVIATION SUPPORT EQUIPMENT REPAIRER) [facility] Method Time Signature Prothrombin 14.9 (H) 9.5 - [facility] Time, P 13.8 SEC [facility] Comment: Drawn From Arterial Line INR 1.3 0.8 - 1.2 [facility] Comment: Drawn From Arterial Line Specimen Anatomical Collection Method Collection Time Receive d Time (Source) Location / / Volume Laterality 06/13/2013 1:52 AM 3 1:52 AVIATION SUPPORT EQUIPMENT REPAIRER AM AVIATION SUPPORT EQUIPMENT REPAIRER Narrative [facility] - 06/13/2013 2:07 AM AVIATION SUPPORT EQUIPMENT REPAIRER Drawn From Arterial Line Dex Smith APRN, C.N.P. LAB BLOOD ADD-ON Performing Organization Address City/[facility] Code Phon e Number [facility] - [address] [place] [phone] [employer] [facility] (ABNORMAL) Blood Gas with Coox, Arterial (06/13/2013 1:44 AM AVIATION SUPPORT EQUIPMENT REPAIRER) Demeure Method Time Signature Device Vent [facility] Vent Mode AC [facility] Spont. 0 [facility] breaths/min [facility] Mech. 18 [facility] breaths/min [facility] pO2 88 80 - 100 [facility] MM HG [facility] pCO2 38 35 - 45 [facility] MM HG [facility] HCO3 20 (L) 22 - 26 [facility] MMOL/L [facility] Hb 10.1 (L) 13.5 - [facility] 17.5 G/DL [facility] O2Hb 94.2 94.0 - [facility] 98.0 % [facility] COHb 1.7 <3.0 % [facility] Arterial Sample Art Line [facility] Site [facility] FIO2 0.50 .21=AIR [facility] End Expiratory 5.0 CM H2O [facility] Pressure [facility] Min. 11.6 [facility] Ventilation [facility] pH 7.33 (L) 7.35 - [facility] 7.45 PH [facility] Base Excess -5 (L) -2 - 2 [facility] MMOL/L [facility] MetHb 1.3 <1.6 % [facility] CtO2 13.5 (L) 21.0 - [facility] 23.0 VOL LABORATORIES - [facility] Specimen Anatomical Collection Method Collection Time Receive d Time (Source) Location / / Volume Laterality 06/13/2013 1:44 AM 3 1:44 AVIATION SUPPORT EQUIPMENT REPAIRER AM AVIATION SUPPORT EQUIPMENT REPAIRER Dex Smith APRN CDemetriusN.PDemetrius LAB BLOOD NON ADD-ON Performing Organization Address City/State/ZIP Code Phon e Number [facility] - [address] DX Abdomen Portable Anterior Posterior 1 View (06/13/2013 1:27 AM AVIATION SUPPORT EQUIPMENT REPAIRER) Anatomical Region Laterality Modality Abdomen N/A Radiographic Imaging Specimen (Source) Anatomical Collection Method Collection Time Re ceived Time Location / / Volume Laterality 06/13/2013 1:27 AM AVIATION SUPPORT EQUIPMENT REPAIRER Narrative 06/13/2013 7:08 AM AVIATION SUPPORT EQUIPMENT REPAIRER 13-Jun-2013 01:27:00 ??Exam: Portable-Abdomen Indications: OR 73 post liver transplant ORIGINAL REPORT - 13-Jun-2013 01:31:00 Portable-Abdomen, 1vw: NG tube with tip in the the stomach and side-port near the GE junction. Surgical drains in the right upper quadrant. Surgical clips RUQ. Nonobstructive bowel gas pattern. Lung bases are clear. Degenerative changes of the lumbar spine. Electronically signed by: ?Luisa Tavares MD [id number] 13-Jun-2013 01:31 I have reviewed the films/images and agr ee with the above interpretation. Electronically signed by: ?? Mayra Wells [id number] 13-Jun-20 13 07:08 Procedure Note Mayra Wells M.B., Ch.B. - 13-Jun-2013 01:27:00 Exam: Portable-Abdo men Indications: OR 74 post liver transplant ORIGINAL REPORT - 13-Jun-2013 01:31:00 Portable-Abdomen, 1vw: NG tube with tip in the the stomach and side-port near the GE junction. Surgical drains in the right upper quadrant. Surgical clips RUQ. Nonobstructive bowel gas pattern. Lung bases are clear. Degenerative changes of the lumbar spine. Electronically signed by: Louie Tavares MD 13-Jun-2013 01:31 I have reviewed the films/images and agr ee with the above interpretation. Electronically signed by: Mayra Wells [id number] 13-Jun-20 13 07:08 He Grayson M.D. IMG DIAGNOSTIC IMAGING PROCE [facility] Potassium, Blood (06/13/2013 12:34 AM AVIATION SUPPORT EQUIPMENT REPAIRER) P athologist Signature Potassium, B 4.3 3.6 - 5.2 [facility] MMOL/L LAB[facility]ATORIES - [employer] [facility] Comment: Drawn in [place] Specimen Anatomical Collection Method Collection Time Receive d Time (Source) Location / / Volume Laterality 06/13/2013 12:34 06/13/2013 AM AVIATION SUPPORT EQUIPMENT REPAIRER 12:34 AM AVIATION SUPPORT EQUIPMENT REPAIRER Narrative [facility] - [facility] - 06/13/2013 12:43 AM AVIATION SUPPORT EQUIPMENT REPAIRER Drawn in [place] Historical Provider LAB BLOOD NON ADD-ON Performing Organization Address City/State/ZIP Code Phon e Number [facility] - [address] [place], [place] [address] [employer] [facility] (ABNORMAL) Calcium, Ionized (06/13/2013 12:34 AM AVIATION SUPPORT EQUIPMENT REPAIRER) Patholo gist Method Time Signature Calcium, 6.43 (H) 4.65 - [facility] Ionized, B 5.30 LABORATORIES - MG/DL [employer] [facility] Comment: Drawn in [place] Specimen Anatomical Collection Method Collection Time Receive d Time (Source) Location / / Volume Laterality 06/13/2013 12:34 06/13/2013 AM AVIATION SUPPORT EQUIPMENT REPAIRER 12:34 AM AVIATION SUPPORT EQUIPMENT REPAIRER Narrative [facility] - 06/13/2013 12:42 AM AVIATION SUPPORT EQUIPMENT REPAIRER [place] Historical Provider LAB BLOOD NON ADD-ON Performing Organization Address City/[facility]/ZIP Code Phon e Number [facility] - [address] [phone] [employer] [facility] (ABNORMAL) Platelet Count (06/13/2013 12:34 AM AVIATION SUPPORT EQUIPMENT REPAIRER) [facility] Method Time Signature Platelet Count 129 (L) 150 - 450 [facility] X10(9)/L [facility] Comment: [place] Specimen Anatomical Collection Method Collection Time Receive d Time (Source) Location / / Volume Laterality 06/13/2013 12:34 06/13/2013 AM AVIATION SUPPORT EQUIPMENT REPAIRER 12:34 AM AVIATION SUPPORT EQUIPMENT REPAIRER Narrative [facility] - 06/13/2013 12:43 AM AVIATION SUPPORT EQUIPMENT REPAIRER [place] Historical Provider LAB BLOOD ADD-ON Performing Organization Address City/[facility]/ZIP [facility] Phon e Number [facility] - [address] [phone] [employer] [place] [employer] [facility] [facility] (ABNORMAL) Fibrinogen (06/13/2013 12:34 AM AVIATION SUPPORT EQUIPMENT REPAIRER) [facility] Method Time Signature Fibrinogen, P 130 (L) 200 - 375 [facility] MG/DL [facility] Comment: [place] Specimen Anatomical Collection Method Collection Time Receive d Time (Source) Location / / Volume Laterality 06/13/2013 12:34 06/13/2013 AM AVIATION SUPPORT EQUIPMENT REPAIRER 12:34 AM AVIATION SUPPORT EQUIPMENT REPAIRER Narrative [facility] - 06/13/2013 12:56 AM AVIATION SUPPORT EQUIPMENT REPAIRER [place] Historical Provider LAB BLOOD ADD-ON Performing Organization Address City/[facility] Phon e Number [facility] - [address] [phone] [employer] [facility] [facility] (ABNORMAL) Blood Gas with Coox, Arterial (06/13/2013 12:34 AM AVIATION SUPPORT EQUIPMENT REPAIRER) P athologist Signature pH 7.27 (L) 7.35 - [facility] 7.45 PH [facility] Comment: [place] Base Excess -10 (L) -2 - 2 MMOL/L [facility] - [employer] [facility] [employer] [facility] Comment: [place] O2Hb 96.6 94.0 - 98.0 % [facility] Comment: [place] COHb 1.5 <3.0 % [facility] Comment: [place] pO2 111 (H) 80 - 100 MM HG [facility] Comment: [place] pCO2 36 35 - 45 MM HG [facility] Comment: [place] HCO3 17 (L) 22 - 26 MMOL/L [facility] Comment: [place] Hb 10.3 (L) 13.5 - 17.5 G/DL [facility] Comment: [place] MetHb <1.0 <1.6 % [facility] Comment: [place] CtO2 14.2 (L) 21.0 - 23.0 VOL % [facility] Comment: [place] Specimen Anatomical Collection Method Collection Time Receive d Time (Source) Location / / Volume Laterality 06/13/2013 12:34 06/13/2013 AM AVIATION SUPPORT EQUIPMENT REPAIRER 12:34 AM AVIATION SUPPORT EQUIPMENT REPAIRER Narrative [facility] - 06/13/2013 12:41 AM AVIATION SUPPORT EQUIPMENT REPAIRER [place] Historical Provider LAB BLOOD NON ADD-ON Performing Organization Address City/[facility] Code Phon e Number [address] (ABNORMAL) PT (Prothrombin Time) with INR (06/13/2013 12:34 AM AVIATION SUPPORT EQUIPMENT REPAIRER) [facility] gist Method Time Signature Prothrombin 16.8 (H) 9.5 - [facility] Time, P 13.8 SEC [facility] Comment: [place] INR 1.5 0.8 - 1.2 [facility] Comment: [place] Specimen Anatomical Collection Method Collection Time Receive d Time (Source) Location / / Volume Laterality 06/13/2013 12:34 06/13/2013 AM AVIATION SUPPORT EQUIPMENT REPAIRER 12:34 AM AVIATION SUPPORT EQUIPMENT REPAIRER Narrative [facility] - 06/13/2013 12:50 AM AVIATION SUPPORT EQUIPMENT REPAIRER [place] Historical Provider LAB BLOOD ADD-ON Performing Organization Address City/[facility] Phon e Number [address] (ABNORMAL) Sodium (06/13/2013 12:34 AM AVIATION SUPPORT EQUIPMENT REPAIRER) athologist Signature Sodium, B 134 (L) 135 - 145 [facility] MMOL/L [facility] Comment: [place] Specimen Anatomical Collection Method Collection Time Receive d Time (Source) Location / / Volume Laterality 06/13/2013 12:34 06/13/2013 AM AVIATION SUPPORT EQUIPMENT REPAIRER 12:34 AM AVIATION SUPPORT EQUIPMENT REPAIRER Narrative [facility] - 06/13/2013 12:43 AM AVIATION SUPPORT EQUIPMENT REPAIRER [place] Historical Provider LAB BLOOD ADD-ON Performing Organization Address City/[facility] Phon e Number [facility] - [address] [phone] [employer] [facility] [facility] Thromboelastograph, Kaolin, Blood (06/13/2013 12:34 AM AVIATION SUPPORT EQUIPMENT REPAIRER) athologist Signature R + K 7.7 4.9 - 10.8 [facility] Comment: [place] Angle 67.0 64.0 - 78.1 [facility] Comment: [place] R Time 6.1 4.0 - 9.0 MIN [facility] Comment: [place] K Time 1.6 1.0 - 1.8 MIN [facility] Comment: [place] Maximum Amplitude 58.6 57.1 - 72.6 MM [facility] Comment: [place] Ly30 0.0 0.0 - 4.8 % [facility] Comment: [place] Specimen Anatomical Collection Method Collection Time Receive d Time (Source) Location / / Volume Laterality 06/13/2013 12:34 06/13/2013 AM AVIATION SUPPORT EQUIPMENT REPAIRER 12:34 AM AVIATION SUPPORT EQUIPMENT REPAIRER Narrative [facility] - 06/13/2013 1:37 AM AVIATION SUPPORT EQUIPMENT REPAIRER [place] Historical Provider LAB BLOOD NON ADD-ON Performing Organization Address City/State/[facility] Phon e Number [facility] - [address] [phone] [employer] [facility] (ABNORMAL) Glucose, Whole Blood (06/13/2013 12:34 AM AVIATION SUPPORT EQUIPMENT REPAIRER) athologist Signature Glucose, S 220 (H) 70 - 140 [facility] MG/DL [facility] Comment: [place] Specimen Anatomical Collection Method Collection Time Receive d Time (Source) Location / / Volume Laterality 06/13/2013 12:34 06/13/2013 AM AVIATION SUPPORT EQUIPMENT REPAIRER 12:34 AM AVIATION SUPPORT EQUIPMENT REPAIRER Narrative [facility] - 06/13/2013 12:43 AM AVIATION SUPPORT EQUIPMENT REPAIRER [place] Historical Provider LAB BLOOD TROPONIN Performing Organization Address City/[facility]/ZIP Code Phon e Number [facility] - [address] [phone] [employer] [facility] [facility] (ABNORMAL) APTT (Activated Partial Thromboplastin Time) (06/13/2013 12:34 AM AVIATION SUPPORT EQUIPMENT REPAIRER) P athologist Signature APTT, P 52 (H) 28 - 38 [facility] Comment: [place] Specimen Anatomical Collection Method Collection Time Receive d Time (Source) Location / / Volume Laterality 06/13/2013 12:34 06/13/2013 AM AVIATION SUPPORT EQUIPMENT REPAIRER 12:34 AM AVIATION SUPPORT EQUIPMENT REPAIRER Narrative [facility] - 06/13/2013 12:56 AM AVIATION SUPPORT EQUIPMENT REPAIRER [place] Historical Provider LAB BLOOD ADD-ON Performing Organization Address City/[facility] Code Phon e Number [facility] - [address] [phone] [employer] [facility] [facility] Prepare cryoprecipitate (06/13/2013 12:11 AM AVIATION SUPPORT EQUIPMENT REPAIRER) Analysis Performed At Patho logist Time Signature HXCRYO # UNITS 2 [facility] TRANSFUSED [facility]IES - [employer] [facility] HXCRYO UNIT CRYO [facility] INFO LABORATORIES [facility] Comment: Unit Blood Type O Rh Unk Unit Number [id number] Component Type Cryoprecipitated AHF - Po oled, Frozen Issue Date/Time Unit Blood Type O Rh Unk Unit Number [id number] Component Type Cryoprecipitated AHF - Po oled, Frozen Issue Date/Time [id number] Specimen (Source) Anatomical Collection Method Collection Time Re ceived Time Location / / Volume Laterality 06/13/2013 12:11 AM AVIATION SUPPORT EQUIPMENT REPAIRER Historical Provider BLOOD BANK PRODUCT ORDERABLE S Performing Organization Address City/[facility]/ZIP [facility] Phon e Number [facility] - [address] [phone] [employer] [facility] [facility] (ABNORMAL) APTT (Activated Partial Thromboplastin Time) (06/12/2013 11:34 PM AVIATION SUPPORT EQUIPMENT REPAIRER) athologist Signature APTT, P 55 (H) 28 - 38 [facility] Comment: [place] Specimen Anatomical Collection Method Collection Time Receive d Time (Source) Location / / Volume Laterality 06/12/2013 11:34 06/12/2013 PM AVIATION SUPPORT EQUIPMENT REPAIRER 11:34 PM AVIATION SUPPORT EQUIPMENT REPAIRER Narrative [facility] - 06/12/2013 11:49 PM AVIATION SUPPORT EQUIPMENT REPAIRER [place] Historical Provider LAB BLOOD ADD-ON Performing Organization Address City/[facility] Phon e Number [facility] - [address] [phone] [employer] [facility] (ABNORMAL) Sodium (06/12/2013 11:34 PM AVIATION SUPPORT EQUIPMENT REPAIRER) athologist [facility] Sodium, B 134 (L) 135 - 145 [facility] MMOL/L [facility] Comment: [place] Specimen Anatomical Collection Method Collection Time Receive d Time (Source) Location / / Volume Laterality 06/12/2013 11:34 06/12/2013 PM AVIATION SUPPORT EQUIPMENT REPAIRER 11:34 PM AVIATION SUPPORT EQUIPMENT REPAIRER Narrative [facility] - 06/12/2013 11:41 PM AVIATION SUPPORT EQUIPMENT REPAIRER [place] Historical Provider LAB BLOOD ADD-ON Performing Organization Address City/[facility]/ZIP Code Phon e Number [facility] - [address] [phone] [employer] [facility] (ABNORMAL) Thromboelastograph, Kaolin, Blood (06/12/2013 11:34 PM AVIATION SUPPORT EQUIPMENT REPAIRER) athologist Signature R Time 5.9 4.0 - 9.0 [facility] MIN [facility] Comment: [place] K Time 1.8 1.0 - 1.8 MIN [facility] Comment: [place] R + K 7.7 4.9 - 10.8 MIN [facility] Comment: [place] Angle 66.8 64.0 - 78.1 [facility] Comment: [place] Maximum Amplitude 54.4 (L) 57.1 - 72.6 MM [facility] Comment: [place] Ly30 0.0 0.0 - 4.8 % [facility] LABORA TORIES [facility] Comment: [place] Specimen Anatomical Collection Method Collection Time Receive d Time (Source) Location / / Volume Laterality 06/12/2013 11:34 06/12/2013 PM AVIATION SUPPORT EQUIPMENT REPAIRER 11:34 PM AVIATION SUPPORT EQUIPMENT REPAIRER Narrative [facility] - 06/13/2013 12:43 AM AVIATION SUPPORT EQUIPMENT REPAIRER [place] Historical Provider LAB BLOOD NON ADD-ON Performing Organization Address City/[facility]/ZIP [facility] Phon e Number [facility] - [address] [phone] [employer] [facility] [facility] Calcium, Ionized (06/12/2013 11:34 PM AVIATION SUPPORT EQUIPMENT REPAIRER) athologist Signature Calcium, 4.68 4.65 - [facility] Ionized, B 5.30 MG/DL [facility] Comment: [place] Specimen Anatomical Collection Method Collection Time Receive d Time (Source) Location / / Volume Laterality 06/12/2013 11:34 06/12/2013 PM AVIATION SUPPORT EQUIPMENT REPAIRER 11:34 PM AVIATION SUPPORT EQUIPMENT REPAIRER Narrative [facility] - 06/12/2013 11:41 PM AVIATION SUPPORT EQUIPMENT REPAIRER [place] Historical Provider LAB BLOOD NON ADD-ON Performing Organization Address City/State/ZIP Code Phon e Number [facility] - [address] [phone] [employer] [facility] (ABNORMAL) Fibrinogen (06/12/2013 11:34 PM AVIATION SUPPORT EQUIPMENT REPAIRER) Patholo gist Method Time Signature Fibrinogen, P 135 (L) 200 - 375 [facility] MG/DL [facility] Comment: [place] Specimen Anatomical Collection Method Collection Time Receive d Time (Source) Location / / Volume Laterality 06/12/2013 11:34 06/12/2013 PM AVIATION SUPPORT EQUIPMENT REPAIRER 11:34 PM AVIATION SUPPORT EQUIPMENT REPAIRER Narrative [facility] - 06/12/2013 11:53 PM AVIATION SUPPORT EQUIPMENT REPAIRER [place] Historical Provider LAB BLOOD ADD-ON Performing Organization Address City/[facility]/ZIP [facility] Phon e Number [facility] - [address] [phone] [employer] [facility] [facility] (ABNORMAL) Platelet Count (06/12/2013 11:34 PM AVIATION SUPPORT EQUIPMENT REPAIRER) Analysis Performed At Patho logist Time Signature Platelet Count 73 (L) 150 - 450 [facility] X10(9)/L [facility] Comment: [place] Specimen Anatomical Collection Method Collection Time Receive d Time (Source) Location / / Volume Laterality 06/12/2013 11:34 06/12/2013 PM AVIATION SUPPORT EQUIPMENT REPAIRER 11:34 PM AVIATION SUPPORT EQUIPMENT REPAIRER Narrative [facility] - 06/12/2013 11:40 PM AVIATION SUPPORT EQUIPMENT REPAIRER [place] Historical Provider LAB BLOOD ADD-ON Performing Organization Address City/[facility]/ZIP Code Phon e Number [facility] - [address] [phone] [employer] [facility] [facility] (ABNORMAL) Glucose, Whole Blood (06/12/2013 11:34 PM AVIATION SUPPORT EQUIPMENT REPAIRER) P athologist Signature Glucose, S 249 (H) 70 - 140 [facility] MG/DL [facility] Comment: [place] Specimen Anatomical Collection Method Collection Time Receive d Time (Source) Location / / Volume Laterality 06/12/2013 11:34 06/12/2013 PM AVIATION SUPPORT EQUIPMENT REPAIRER 11:34 PM AVIATION SUPPORT EQUIPMENT REPAIRER Narrative [facility] - 06/12/2013 11:41 PM AVIATION SUPPORT EQUIPMENT REPAIRER [place] Historical Provider LAB BLOOD TROPONIN Performing Organization Address City/[facility]/ZIP Code Phon e Number [facility] - [address] [phone] [employer] [facility] [facility] Potassium, Blood (06/12/2013 11:34 PM AVIATION SUPPORT EQUIPMENT REPAIRER) P athologist Signature Potassium, B 4.6 3.6 - 5.2 [facility] MMOL/L [facility] Comment: [place] Specimen Anatomical Collection Method Collection Time Receive d Time (Source) Location / / Volume Laterality 06/12/2013 11:34 06/12/2013 PM AVIATION SUPPORT EQUIPMENT REPAIRER 11:34 PM AVIATION SUPPORT EQUIPMENT REPAIRER Narrative [facility] - 06/12/2013 11:41 PM AVIATION SUPPORT EQUIPMENT REPAIRER [place] Historical Provider LAB BLOOD NON ADD-ON Performing Organization Address City/State/ZIP Code Phon e Number [facility] - [address] [phone] [employer] [facility] [facility] (ABNORMAL) PT (Prothrombin Time) with INR (06/12/2013 11:34 PM AVIATION SUPPORT EQUIPMENT REPAIRER) Patholo gist Method Time Signature Prothrombin 17.9 (H) 9.5 - [facility] Time, P 13.8 SEC [facility] Comment: [place] INR 1.6 0.8 - 1.2 [facility] Comment: [place] Specimen Anatomical Collection Method Collection Time Receive d Time (Source) Location / / Volume Laterality 06/12/2013 11:34 06/12/2013 PM AVIATION SUPPORT EQUIPMENT REPAIRER 11:34 PM AVIATION SUPPORT EQUIPMENT REPAIRER Narrative [facility] - 06/12/2013 11:48 PM AVIATION SUPPORT EQUIPMENT REPAIRER [place] Historical Provider LAB BLOOD ADD-ON Performing Organization Address City/[facility]/ZIP Code Phon e Number [facility] - [address] [place], [place] [address] [employer] [facility] [facility] (ABNORMAL) Blood Gas with Coox, Arterial (06/12/2013 11:34 PM AVIATION SUPPORT EQUIPMENT REPAIRER) P athologist Signature pH 7.24 (L) 7.35 - [facility] 7.45 PH [facility] Comment: [place] Base Excess -13 (L) -2 - 2 MMOL/L [facility] Comment: [place] HCO3 14 (L) 22 - 26 MMOL/L [facility] Comment: [place] Hb 9.0 (L) 13.5 - 17.5 G/DL [facility] Comment: [place] MetHb <1.0 <1.6 % [facility] Comment: [place] CtO2 12.6 (L) 21.0 - 23.0 VOL % [facility] Comment: [place] pO2 131 (H) 80 - 100 MM HG [facility] Comment: [place] pCO2 34 (L) 35 - 45 MM HG [facility] Comment: [place] O2Hb 97.3 94.0 - 98.0 % [facility] Comment: [place] COHb 1.1 <3.0 % [facility] Comment: [place] Specimen Anatomical Collection Method Collection Time Receive d Time (Source) Location / / Volume Laterality 06/12/2013 11:34 06/12/2013 PM AVIATION SUPPORT EQUIPMENT REPAIRER 11:34 PM AVIATION SUPPORT EQUIPMENT REPAIRER Narrative [facility] - 06/12/2013 11:41 PM AVIATION SUPPORT EQUIPMENT REPAIRER [place] Historical Provider LAB BLOOD NON ADD-ON Performing Organization Address City/State/ZIP Code Phon e Number [facility] - [address] [phone] [employer] [facility] [facility] Prepare platelets (06/12/2013 11:03 PM AVIATION SUPPORT EQUIPMENT REPAIRER) Patholo gist Method Time Signature HXPLT # UNITS 2 [facility] TRANSFUSED [facility] HXPLATELETS UNIT PLT [facility] INFO [facility] Comment: Unit Blood Type O Pos Unit Number [id number] Component Type Platelets, Apheresis Leuk oreduced, Irradiated, Bag 1 Issue Date/Time [id number] Unit Blood Type O Pos Unit Number [id number] Component Type Platelets, Apheresis Leuk oreduced, Irradiated, Bag 2 Issue Date/Time [id number] Specimen (Source) Anatomical Collection Method Collection Time Re ceived Time Location / / Volume Laterality 06/12/2013 11:03 PM AVIATION SUPPORT EQUIPMENT REPAIRER Historical Provider BLOOD BANK PRODUCT ORDERABLE S Performing Organization Address City/[facility] Phon e Number [facility] - [address] [phone] [employer] [facility] (ABNORMAL) APTT (Activated Partial Thromboplastin Time) (06/12/2013 11:00 PM AVIATION SUPPORT EQUIPMENT REPAIRER) P athologist Signature APTT, P 95 (H) 28 - 38 SEC [facility] Comment: [place] Specimen Anatomical Collection Method Collection Time Receive d Time (Source) Location / / Volume Laterality 06/12/2013 11:00 06/12/2013 PM AVIATION SUPPORT EQUIPMENT REPAIRER 11:00 PM AVIATION SUPPORT EQUIPMENT REPAIRER Narrative [facility] - 06/12/2013 11:17 PM AVIATION SUPPORT EQUIPMENT REPAIRER [place] Historical Provider LAB BLOOD ADD-ON Performing Organization Address City/[facility] Code Phon e Number [facility] - [address] [phone] [employer] [facility] (ABNORMAL) Blood Gas with Coox, Arterial (06/12/2013 11:00 PM AVIATION SUPPORT EQUIPMENT REPAIRER) P athologist Signature pH 7.20 (L) 7.35 - [facility] 7.45 PH [facility] Comment: [place] Base Excess -14 (L) -2 - 2 MMOL/L [facility] Comment: [place] O2Hb 97.8 94.0 - 98.0 % [facility] Comment: [place] COHb <1.0 <3.0 % [facility] Comment: [place] pO2 116 (H) 80 - 100 MM HG [facility] Comment: [place] pCO2 35 35 - 45 MM HG [facility] Comment: [place] HCO3 14 (L) 22 - 26 MMOL/L [facility] Comment: [place] Hb 11.0 (L) 13.5 - 17.5 G/DL [facility] Comment: [place] MetHb <1.0 <1.6 % [facility] Comment: [place] CtO2 15.3 (L) 21.0 - 23.0 VOL % [facility] Comment: [place] Specimen Anatomical Collection Method Collection Time Receive d Time (Source) Location / / Volume Laterality 06/12/2013 11:00 06/12/2013 PM AVIATION SUPPORT EQUIPMENT REPAIRER 11:00 PM AVIATION SUPPORT EQUIPMENT REPAIRER Narrative [facility] - 06/12/2013 11:06 PM AVIATION SUPPORT EQUIPMENT REPAIRER [place] Historical Provider LAB BLOOD NON ADD-ON Performing Organization Address City/[facility] Phon e Number [facility] - [address] (ABNORMAL) Sodium (06/12/2013 11:00 PM AVIATION SUPPORT EQUIPMENT REPAIRER) athologist Signature Sodium, B 131 (L) 135 - 145 [facility] MMOL/L [facility] Comment: [place] Specimen Anatomical Collection Method Collection Time Receive d Time (Source) Location / / Volume Laterality 06/12/2013 11:00 06/12/2013 PM AVIATION SUPPORT EQUIPMENT REPAIRER 11:00 PM AVIATION SUPPORT EQUIPMENT REPAIRER Narrative [facility] - 06/12/2013 11:06 PM AVIATION SUPPORT EQUIPMENT REPAIRER [place] Historical Provider LAB BLOOD ADD-ON Performing Organization Address City/[facility] Phon e Number [facility] - [address] (ABNORMAL) Thromboelastograph, Kaolin, Blood (06/12/2013 11:00 PM AVIATION SUPPORT EQUIPMENT REPAIRER) athologist Signature R + K 12.6 (H) 4.9 - 10.8 [facility] MIN [facility] Comment: [place] Angle 42.3 (L) 64.0 - 78.1 [facility] Comment: [place] R Time 5.0 4.0 - 9.0 MIN [facility] Comment: [place] K Time 7.6 (H) 1.0 - 1.8 MIN [facility] Comment: [place] Maximum Amplitude 32.3 (L) 57.1 - 72.6 MM [facility] Comment: [place] Ly30 0.0 0.0 - 4.8 % [facility] Comment: [place] Specimen Anatomical Collection Method Collection Time Receive d Time (Source) Location / / Volume Laterality 06/12/2013 11:00 06/12/2013 PM AVIATION SUPPORT EQUIPMENT REPAIRER 11:00 PM AVIATION SUPPORT EQUIPMENT REPAIRER Narrative [facility] - 06/13/2013 12:04 AM AVIATION SUPPORT EQUIPMENT REPAIRER [place] Historical Provider LAB BLOOD NON ADD-ON Performing Organization Address City/State/[facility] Phon e Number [facility] - [address] (ABNORMAL) Potassium, Blood (06/12/2013 11:00 PM AVIATION SUPPORT EQUIPMENT REPAIRER) Analysis Performed At Path logist Time Signature Potassium, B 5.4 (H) 3.6 - 5.2 [facility] MMOL/L [facility] Comment: [place] Specimen Anatomical Collection Method Collection Time Receive d Time (Source) Location / / Volume Laterality 06/12/2013 11:00 06/12/2013 PM AVIATION SUPPORT EQUIPMENT REPAIRER 11:00 PM AVIATION SUPPORT EQUIPMENT REPAIRER Narrative [facility] - 06/12/2013 11:06 PM AVIATION SUPPORT EQUIPMENT REPAIRER [place] Historical Provider LAB BLOOD NON ADD-ON Performing Organization Address City/State/ZIP Code Phon e Number [facility] - [address] (ABNORMAL) Fibrinogen (06/12/2013 11:00 PM AVIATION SUPPORT EQUIPMENT REPAIRER) Patholo gist Method Time Signature Fibrinogen, P <60 (<) 200 - 375 [facility] MG/DL [facility] Comment: [place] Specimen Anatomical Collection Method Collection Time Receive d Time (Source) Location / / Volume Laterality 06/12/2013 11:00 06/12/2013 PM AVIATION SUPPORT EQUIPMENT REPAIRER 11:00 PM AVIATION SUPPORT EQUIPMENT REPAIRER Narrative [facility] - 06/12/2013 11:29 PM AVIATION SUPPORT EQUIPMENT REPAIRER [place] Historical Provider LAB BLOOD ADD-ON Performing Organization Address City/[facility]/ZIP Code Phon e Number [facility] - [address] [place] [phone] [employer] [facility] (ABNORMAL) Glucose, Whole Blood (06/12/2013 11:00 PM AVIATION SUPPORT EQUIPMENT REPAIRER) P athologist Signature Glucose, S 257 (H) 70 - 140 [facility] MG/DL [facility] Comment: [place] Specimen Anatomical Collection Method Collection Time Receive d Time (Source) Location / / Volume Laterality 06/12/2013 11:00 06/12/2013 PM AVIATION SUPPORT EQUIPMENT REPAIRER 11:00 PM AVIATION SUPPORT EQUIPMENT REPAIRER Narrative [facility] - 06/12/2013 11:06 PM AVIATION SUPPORT EQUIPMENT REPAIRER [place] Historical Provider LAB BLOOD TROPONIN Performing Organization Address City/[facility]/ZIP Code Phon e Number [facility] - [address] [place] [phone] [employer] [place] [employer] [facility] (ABNORMAL) Platelet Count (06/12/2013 11:00 PM AVIATION SUPPORT EQUIPMENT REPAIRER) Analysis Performed At Patho logist Time Signature Platelet Count 39 (<) 150 - 450 [facility] X10(9)/L [facility] Comment: [place] Specimen Anatomical Collection Method Collection Time Receive d Time (Source) Location / / Volume Laterality 06/12/2013 11:00 06/12/2013 PM AVIATION SUPPORT EQUIPMENT REPAIRER 11:00 PM AVIATION SUPPORT EQUIPMENT REPAIRER Narrative [facility] - 06/12/2013 11:11 PM AVIATION SUPPORT EQUIPMENT REPAIRER [place] Historical Provider LAB BLOOD ADD-ON Performing Organization Address City/State/ZIP Code Phon e Number [facility] - [address] [place] [phone] [employer] [place] [employer] [facility] (ABNORMAL) PT (Prothrombin Time) with INR (06/12/2013 11:00 PM AVIATION SUPPORT EQUIPMENT REPAIRER) Patholo gist Method Time Signature Prothrombin 36.9 (H) 9.5 - [facility] Time, P 13.8 SEC [facility] Comment: [place] INR 3.5 0.8 - 1.2 [facility]: [place] Specimen Anatomical Collection Method Collection Time Receive d Time (Source) Location / / Volume Laterality 06/12/2013 11:00 06/12/2013 PM AVIATION SUPPORT EQUIPMENT REPAIRER 11:00 PM AVIATION SUPPORT EQUIPMENT REPAIRER Narrative [facility] - 06/12/2013 11:15 PM AVIATION SUPPORT EQUIPMENT REPAIRER [place] Historical Provider LAB BLOOD ADD-ON Performing Organization Address City/[facility] Phon e Number [facility] - [address] [place] [phone] [place] [employer] [facility] [employer] [facility] (ABNORMAL) Calcium, Ionized (06/12/2013 11:00 PM AVIATION SUPPORT EQUIPMENT REPAIRER) Patholo gist Method Time Signature Calcium, 5.35 (H) 4.65 - [facility] Ionized, B 5.30 LABORATORIES - MG/DL [employer] [facility] Comment: [place] Specimen Anatomical Collection Method Collection Time Receive d Time (Source) Location / / Volume Laterality 06/12/2013 11:00 06/12/2013 PM AVIATION SUPPORT EQUIPMENT REPAIRER 11:00 PM AVIATION SUPPORT EQUIPMENT REPAIRER Narrative [facility] - 06/12/2013 11:06 PM AVIATION SUPPORT EQUIPMENT REPAIRER [place] Historical Provider LAB BLOOD NON ADD-ON Performing Organization Address City/[facility]/ZIP Code Phon e Number [facility] - [address] [place] [phone] [employer] [place] [employer] [facility] Prepare cryoprecipitate (06/12/2013 10:42 PM AVIATION SUPPORT EQUIPMENT REPAIRER) Analysis Performed At [facility] logist Time Signature HXCRYO # UNITS 2 [facility] TRANSFUSED [facility]IES - [employer] [place] [employer] [facility] [employer] HXCRYO UNIT CRYO [facility] INFO LAB[facility] - [employer] [facility] Comment: Unit Blood Type O Rh Unk Unit Number [id number] Component Type Cryoprecipitated AHF - Po oled, Frozen Issue Date/Time Unit Blood Type O Rh Unk Unit Number [id number] Component Type Cryoprecipitated [facility] - Po oled, Frozen Issue Date/Time [id number] Specimen (Source) Anatomical Collection Method Collection Time Re ceived Time Location / / Volume Laterality 06/12/2013 10:42 PM AVIATION SUPPORT EQUIPMENT REPAIRER Historical Provider BLOOD BANK PRODUCT ORDERABLE S Performing Organization Address City/[facility] Phon e Number [facility] - [address] [place] [phone] [place] [employer] [facility] (ABNORMAL) Fibrinogen (06/12/2013 10:32 PM AVIATION SUPPORT EQUIPMENT REPAIRER) Analysis Performed At Patho logist Time Signature Fibrinogen, P 70 (L) 200 - 375 [facility] MG/DL [facility] - [employer] [facility] Comment: [place] Specimen Anatomical Collection Method Collection Time Receive d Time (Source) Location / / Volume Laterality 06/12/2013 10:32 06/12/2013 PM AVIATION SUPPORT EQUIPMENT REPAIRER 10:32 PM AVIATION SUPPORT EQUIPMENT REPAIRER Narrative [facility] - 06/12/2013 10:54 PM AVIATION SUPPORT EQUIPMENT REPAIRER [place] Historical Provider LAB BLOOD ADD-ON Performing Organization Address City/State/ZIP Code Phon e Number [facility] - [address] [place] [phone] [place] [employer] [facility] (ABNORMAL) Calcium, Ionized (06/12/2013 10:32 PM AVIATION SUPPORT EQUIPMENT REPAIRER) Patholo gist Method Time Signature Calcium, 3.06 (L) 4.65 - [facility] Ionized, B 5.30 LAB[facility]ATORIES - MG/DL [facility] [employer] [facility] Comment: [place] Specimen Anatomical Collection Method Collection Time Receive d Time (Source) Location / / Volume Laterality 06/12/2013 10:32 06/12/2013 PM AVIATION SUPPORT EQUIPMENT REPAIRER 10:32 PM AVIATION SUPPORT EQUIPMENT REPAIRER Narrative [facility] - 06/12/2013 10:38 PM AVIATION SUPPORT EQUIPMENT REPAIRER [place] Historical Provider LAB BLOOD NON ADD-ON Performing Organization Address City/State/ZIP Code Phon e Number [facility] - [address] [place] [phone] [place] [employer] [facility] (ABNORMAL) Platelet Count (06/12/2013 10:32 PM AVIATION SUPPORT EQUIPMENT REPAIRER) Analysis Performed At Patho logist Time Signature Platelet Count 23 (<) 150 - 450 [facility] X10(9)/L [facility] - [employer] [place] [employer] [facility] [employer] Comment: [place] Specimen Anatomical Collection Method Collection Time Receive d Time (Source) Location / / Volume Laterality 06/12/2013 10:32 06/12/2013 PM AVIATION SUPPORT EQUIPMENT REPAIRER 10:32 PM AVIATION SUPPORT EQUIPMENT REPAIRER Narrative [facility] - 06/12/2013 10:45 PM AVIATION SUPPORT EQUIPMENT REPAIRER [place] Historical Provider LAB BLOOD ADD-ON Performing Organization Address City/State/ZIP Code Phon e Number [facility] - [address] [place] [phone] [employer] [place] [employer] [facility] (ABNORMAL) Blood Gas with Coox, Arterial (06/12/2013 10:32 PM AVIATION SUPPORT EQUIPMENT REPAIRER) P athologist Signature pO2 412 (H) 80 - 100 [facility] MM HG [facility] Comment: [place] pCO2 38 35 - 45 MM HG [facility] Comment: [place] HCO3 11 (L) 22 - 26 MMOL/L [facility] Comment: [place] Hb 10.7 (L) 13.5 - 17.5 G/DL [facility] Comment: [place] O2Hb 98.3 (H) 94.0 - 98.0 % [facility] Comment: [place] COHb <1.0 <3.0 % [facility] Comment: [place] MetHb <1.0 <1.6 % [facility] Comment: [place] CtO2 15.9 (L) 21.0 - 23.0 VOL % [facility] Comment: [place] pH 7.06 (L) 7.35 - 7.45 PH [facility] Comment: [place] Base Excess -20 (L) -2 - 2 MMOL/L [facility] Comment: [place] Specimen Anatomical Collection Method Collection Time Receive d Time (Source) Location / / Volume Laterality 06/12/2013 10:32 06/12/2013 PM AVIATION SUPPORT EQUIPMENT REPAIRER 10:32 PM AVIATION SUPPORT EQUIPMENT REPAIRER Narrative [facility] - 06/12/2013 10:38 PM AVIATION SUPPORT EQUIPMENT REPAIRER [place] Historical Provider LAB BLOOD NON ADD-ON Performing Organization Address City/State/ZIP Code Phon e Number [facility] - [address] [place] [phone] [employer] [facility] (ABNORMAL) APTT (Activated Partial Thromboplastin Time) (06/12/2013 10:32 PM AVIATION SUPPORT EQUIPMENT REPAIRER) P athologist Signature APTT, P 67 (H) 28 - 38 SEC [facility] Comment: [place] Specimen Anatomical Collection Method Collection Time Receive d Time (Source) Location / / Volume Laterality 06/12/2013 10:32 06/12/2013 PM AVIATION SUPPORT EQUIPMENT REPAIRER 10:32 PM AVIATION SUPPORT EQUIPMENT REPAIRER Narrative [facility] - 06/12/2013 10:54 PM AVIATION SUPPORT EQUIPMENT REPAIRER [place] Historical Provider LAB BLOOD ADD-ON Performing Organization Address City/[facility]/ZIP Code Phon e Number [facility] - [address] [place] [phone] [employer] [facility] (ABNORMAL) Glucose, Whole Blood (06/12/2013 10:32 PM AVIATION SUPPORT EQUIPMENT REPAIRER) P athologist Signature Glucose, S 281 (H) 70 - 140 [facility] MG/DL [facility] Comment: [place] Specimen Anatomical Collection Method Collection Time Receive d Time (Source) Location / / Volume Laterality 06/12/2013 10:32 06/12/2013 PM AVIATION SUPPORT EQUIPMENT REPAIRER 10:32 PM AVIATION SUPPORT EQUIPMENT REPAIRER Narrative [facility] - 06/12/2013 10:38 PM AVIATION SUPPORT EQUIPMENT REPAIRER [place] Historical Provider LAB BLOOD TROPONIN Performing Organization Address City/[facility]/ZIP Code Phon e Number [facility] - [address] [place] [phone] [employer] [place] [employer] [facility] (ABNORMAL) PT (Prothrombin Time) with INR (06/12/2013 10:32 PM AVIATION SUPPORT EQUIPMENT REPAIRER) Patholo gist Method Time Signature Prothrombin 25.6 (H) 9.5 - [facility] Time, P 13.8 SEC [facility] Comment: [place] INR 2.4 0.8 - 1.2 [facility] - [employer] [facility] Comment: [place] Specimen Anatomical Collection Method Collection Time Receive d Time (Source) Location / / Volume Laterality 06/12/2013 10:32 06/12/2013 PM AVIATION SUPPORT EQUIPMENT REPAIRER 10:32 PM AVIATION SUPPORT EQUIPMENT REPAIRER Narrative [facility] - 06/12/2013 10:54 PM AVIATION SUPPORT EQUIPMENT REPAIRER [place] Historical Provider LAB BLOOD ADD-ON Performing Organization Address City/State/ZIP Code Phon e Number [facility] - [address] [place] [phone] [employer] [place] [employer] [facility] [facility] (ABNORMAL) Potassium, Blood (06/12/2013 10:32 PM AVIATION SUPPORT EQUIPMENT REPAIRER) Analysis Performed At Patho logist Time Signature Potassium, B 6.2 (>) 3.6 - 5.2 [facility] MMOL/L [facility] Comment: [place] Specimen Anatomical Collection Method Collection Time Receive d Time (Source) Location / / Volume Laterality 06/12/2013 10:32 06/12/2013 PM AVIATION SUPPORT EQUIPMENT REPAIRER 10:32 PM AVIATION SUPPORT EQUIPMENT REPAIRER Narrative [facility] - 06/12/2013 10:38 PM AVIATION SUPPORT EQUIPMENT REPAIRER [place] Historical Provider LAB BLOOD NON ADD-ON Performing Organization Address City/[facility] Phon e Number [facility] - [address] [place] [phone] [employer] [facility] [employer] [facility] [facility] (ABNORMAL) Thromboelastograph, Kaolin, Blood (06/12/2013 10:32 PM AVIATION SUPPORT EQUIPMENT REPAIRER) athologist Signature R Time 6.8 4.0 - 9.0 [facility] MIN [facility] Comment: [place] K Time 10.3 (H) 1.0 - 1.8 MIN [facility] Comment: [place] R + K 17.1 (H) 4.9 - 10.8 MIN [facility] Comment: [place] Angle 30.5 (L) 64.0 - 78.1 [facility] Comment: [place] Maximum Amplitude 24.4 (L) 57.1 - 72.6 MM [facility] Comment: [place] Ly30 50.2 (H) 0.0 - 4.8 % [facility] LAB[facility]A [facility] Comment: [place] Specimen Anatomical Collection Method Collection Time Receive d Time (Source) Location / / Volume Laterality 06/12/2013 10:32 06/12/2013 PM AVIATION SUPPORT EQUIPMENT REPAIRER 10:32 PM AVIATION SUPPORT EQUIPMENT REPAIRER Narrative [facility] - 06/13/2013 12:02 AM AVIATION SUPPORT EQUIPMENT REPAIRER [place] Historical Provider LAB BLOOD NON ADD-ON Performing Organization Address City/State/[facility] Code Phon e Number [facility] - [address] [place] [phone] [employer] [facility] [facility] (ABNORMAL) Sodium (06/12/2013 10:32 PM AVIATION SUPPORT EQUIPMENT REPAIRER) athologist Signature Sodium, B 131 (L) 135 - 145 [facility] MMOL/L [facility] Comment: [place] Specimen Anatomical Collection Method Collection Time Receive d Time (Source) Location / / Volume Laterality 06/12/2013 10:32 06/12/2013 PM AVIATION SUPPORT EQUIPMENT REPAIRER 10:32 PM AVIATION SUPPORT EQUIPMENT REPAIRER Narrative [facility] - 06/12/2013 10:38 PM AVIATION SUPPORT EQUIPMENT REPAIRER [place] Historical Provider LAB BLOOD ADD-ON Performing Organization Address City/[facility] Code Phon e Number [facility] - [address] Prepare Red Blood Cells (06/12/2013 10:28 PM AVIATION SUPPORT EQUIPMENT REPAIRER) Analysis Performed At Patho logist Time Signature HXRBC # UNITS 4 [facility] TRANSFUSED LABORATORIES [facility] HXRBC UNIT INFO RBC [facility] Comment: Unit Blood Type O Pos Unit Number [id number] Component Type Red Blood Cells - -3 Le ukoreduced Issue Date/Time [id number] Unit Blood Type O Pos Unit Number [id number] Component Type Red Blood Cells - -3 Le ukoreduced Issue Date/Time [id number] Unit Blood Type O Pos Unit Number [id number] Component Type Red Blood Cells - -3 Le ukoreduced Issue Date/Time [id number] Unit Blood Type O Pos Unit Number [id number] Component Type Red Blood Cells - -3 Le ukoreduced Issue Date/Time [id number] Specimen (Source) Anatomical Collection Method Collection Time Re ceived Time Location / / Volume Laterality 06/12/2013 10:28 PM AVIATION SUPPORT EQUIPMENT REPAIRER Historical Provider BLOOD BANK PRODUCT ORDERABLE S Performing Organization Address [facility] Phon e Number [facility] - [address] Prepare fresh frozen plasma (06/12/2013 10:28 PM AVIATION SUPPORT EQUIPMENT REPAIRER) Analysis Performed At Patho logist Time Signature HXFFP # UNITS 2 [facility] TRANSFUSED LABORATORIES [facility] HXFFP UNIT INFO FFP [facility] Comment: Unit Blood Type O Neg Unit Number [id number] Component Type Thawed PLASMA Issue Date/Time [id number] Unit Blood Type O Pos Unit Number [id number] Component Type Thawed PLASMA Issue Date/Time [id number] Specimen (Source) Anatomical Collection Method Collection Time Re ceived Time Location / / Volume Laterality 06/12/2013 10:28 PM AVIATION SUPPORT EQUIPMENT REPAIRER Historical Provider BLOOD BANK PRODUCT ORDERABLE S Performing Organization Address City/[facility]/ZIP Code Phon e Number [facility] - [address] Prepare platelets (06/12/2013 10:28 PM AVIATION SUPPORT EQUIPMENT REPAIRER) [facility] Method Time Signature HXPLT # UNITS 1 [facility] TRANSFUSED [facility] HXPLATELETS UNIT PLT [facility] Comment: Unit Blood Type O Pos Unit Number [id number] Component Type Platelets, Apheresis Leuk oreduced, Irradiated, Bag 2 Issue Date/Time Specimen (Source) Anatomical Collection Method Collection Time Re ceived Time Location / / Volume Laterality 06/12/2013 10:28 PM AVIATION SUPPORT EQUIPMENT REPAIRER Historical Provider BLOOD BANK PRODUCT ORDERABLE S Performing Organization Address [facility] Phon e Number [facility] - [address] [place] [phone] [employer] [facility] [employer] [facility] Prepare platelets (06/12/2013 10:20 PM AVIATION SUPPORT EQUIPMENT REPAIRER) [facility] Method Time Signature HXPLT # UNITS 1 [facility] TRANSFUSED [facility] HXPLATELETS UNIT PLT [facility] Comment: Unit Blood Type O Pos Unit Number [id number] Component Type Platelets, Apheresis Leuk oreduced Irradiated 3rd Container Issue Date/Time Specimen (Source) Anatomical Collection Method Collection Time Re ceived Time Location / / Volume Laterality 06/12/2013 10:20 PM AVIATION SUPPORT EQUIPMENT REPAIRER Historical Provider BLOOD BANK PRODUCT ORDERABLE S Performing Organization Address City/[facility] Phon e Number [facility] - [address] [place] [address] [employer] [facility] Prepare fresh frozen plasma (06/12/2013 10:20 PM AVIATION SUPPORT EQUIPMENT REPAIRER) [facility] Signature HXFFP # UNITS 6 [facility] TRANSFUSED LABORATORIES [facility] HXFFP UNIT INFO [facility] Comment: Unit Blood Type A Neg Unit Number [id number] Component Type Thawed PLASMA Issue Date/Time Unit Blood Type O Neg Unit Number [id number] Component Type Thawed PLASMA Issue Date/Time Unit Blood Type O Neg Unit Number [id number] Component Type Thawed PLASMA Issue Date/Time Unit Blood Type O Pos Unit Number [id number] Component Type Thawed PLASMA Issue Date/Time Unit Blood Type O Neg Unit Number [id number] Component Type Thawed PLASMA Issue Date/Time Unit Blood Type O Pos Unit Number [id number] Component Type Thawed PLASMA Issue Date/Time Specimen (Source) Anatomical Collection Method Collection Time Re ceived Time Location / / Volume Laterality 06/12/2013 10:20 PM AVIATION SUPPORT EQUIPMENT REPAIRER Historical Provider BLOOD BANK PRODUCT ORDERABLE S Performing Organization Address City/[facility] Phon e Number [facility] - [address] [place] [phone] [employer] [facility] Prepare Red Blood Cells (06/12/2013 10:18 PM AVIATION SUPPORT EQUIPMENT REPAIRER) Analysis Performed At [facility] logist Time Signature HXRBC # UNITS 6 [facility] TRANSFUSED [facility] HXRBC UNIT INFO RBC [facility] Comment: Unit Blood Type O Pos Unit Number [id number] Component Type Red Blood Cells - -3 Le ukoreduced Issue Date/Time Unit Blood Type O Pos Unit Number [id number] Component Type Red Blood Cells - -3 Le ukoreduced Issue Date/Time Unit Blood Type O Pos Unit Number [id number] Component Type Red Blood Cells - -3 Le ukoreduced Issue Date/Time Unit Blood Type O Pos Unit Number [id number] Component Type Red Blood Cells - -3 Le ukoreduced Issue Date/Time Unit Blood Type O Pos Unit Number [id number] Component Type Red Blood Cells - -3 Le ukoreduced Issue Date/Time Unit Blood Type O Pos Unit Number [id number] Component Type Red Blood Cells - -3 Le ukoreduced Issue Date/Time Specimen (Source) Anatomical Collection Method Collection Time Re ceived Time Location / / Volume Laterality 06/12/2013 10:18 PM AVIATION SUPPORT EQUIPMENT REPAIRER Historical Provider BLOOD BANK PRODUCT ORDERABLE S Performing Organization Address City/[facility] Phon e Number [facility] - [address] [place] [phone] [employer] [facility] [facility] (ABNORMAL) PT (Prothrombin Time) with INR (06/12/2013 10:12 PM AVIATION SUPPORT EQUIPMENT REPAIRER) Patholo gist Method Time Signature Prothrombin 26.3 (H) 9.5 - [facility] Time, P 13.8 SEC [facility] - [employer] [facility] [employer] Comment: [place] INR 2.4 0.8 - 1.2 [facility] - [employer] [facility] Comment: [place] Specimen Anatomical Collection Method Collection Time Receive d Time (Source) Location / / Volume Laterality 06/12/2013 10:12 06/12/2013 PM AVIATION SUPPORT EQUIPMENT REPAIRER 10:12 PM AVIATION SUPPORT EQUIPMENT REPAIRER Narrative [facility] - 06/12/2013 10:35 PM AVIATION SUPPORT EQUIPMENT REPAIRER [place] Historical Provider LAB BLOOD ADD-ON Performing Organization Address City/State/ZIP Code Phon e Number [facility] - [address] [place] [phone] [employer] [facility] [facility] (ABNORMAL) Fibrinogen (06/12/2013 10:12 PM AVIATION SUPPORT EQUIPMENT REPAIRER) Analysis Performed At Patho logist Time Signature Fibrinogen, P 74 (L) 200 - 375 [facility] MG/DL [facility] Comment: [place] Specimen Anatomical Collection Method Collection Time Receive d Time (Source) Location / / Volume Laterality 06/12/2013 10:12 06/12/2013 PM AVIATION SUPPORT EQUIPMENT REPAIRER 10:12 PM AVIATION SUPPORT EQUIPMENT REPAIRER Narrative [facility] - 06/12/2013 10:35 PM AVIATION SUPPORT EQUIPMENT REPAIRER [place] Historical Provider LAB BLOOD ADD-ON Performing Organization Address City/[facility]/ZIP Code Phon e Number [facility] LABORATORIES - [address] [place] [id number] [employer] [facility] [facility] Potassium, Blood (06/12/2013 10:12 PM AVIATION SUPPORT EQUIPMENT REPAIRER) P athologist Signature Potassium, B 5.1 3.6 - 5.2 [facility] MMOL/L [facility] Comment: [place] Specimen Anatomical Collection Method Collection Time Receive d Time (Source) Location / / Volume Laterality 06/12/2013 10:12 06/12/2013 PM AVIATION SUPPORT EQUIPMENT REPAIRER 10:12 PM AVIATION SUPPORT EQUIPMENT REPAIRER Narrative [facility] - 06/12/2013 10:15 PM AVIATION SUPPORT EQUIPMENT REPAIRER [place] Historical Provider LAB BLOOD NON ADD-ON Performing Organization Address City/State/ZIP Code Phon e Number [facility] LABORATORIES - [address] [place] [phone] [employer] [facility] (ABNORMAL) Calcium, Ionized (06/12/2013 10:12 PM AVIATION SUPPORT EQUIPMENT REPAIRER) Patholo gist Method Time Signature Calcium, 4.35 (L) 4.65 - [facility] Ionized, B 5.30 LABORATORIES - MG/DL [employer] [facility] [employer] [facility] Comment: [place] Specimen Anatomical Collection Method Collection Time Receive d Time (Source) Location / / Volume Laterality 06/12/2013 10:12 06/12/2013 PM AVIATION SUPPORT EQUIPMENT REPAIRER 10:12 PM AVIATION SUPPORT EQUIPMENT REPAIRER Narrative [facility] - 06/12/2013 10:15 PM AVIATION SUPPORT EQUIPMENT REPAIRER [place] Historical Provider LAB BLOOD NON ADD-ON Performing Organization Address City/State/ZIP Code Phon e Number [facility] LABORATORIES - [address] [place], [place] [address] [employer] [facility] (ABNORMAL) Blood Gas with Coox, Arterial (06/12/2013 10:12 PM AVIATION SUPPORT EQUIPMENT REPAIRER) P athologist Signature pO2 191 (H) 80 - 100 [facility] MM HG [facility] Comment: [place] pCO2 31 (L) 35 - 45 MM HG [facility] Comment: [place] HCO3 11 (L) 22 - 26 MMOL/L [facility] Comment: [place] Hb 9.4 (L) 13.5 - 17.5 G/DL [facility] Comment: [place] O2Hb 97.8 94.0 - 98.0 % [facility] Comment: [place] COHb 1.0 <3.0 % [facility] Comment: [place] pH 7.15 (L) 7.35 - 7.45 PH [facility] Comment: [place] Base Excess -18 (L) -2 - 2 MMOL/L [facility] Comment: [place] MetHb <1.0 <1.6 % [facility] Comment: [place] CtO2 13.4 (L) 21.0 - 23.0 VOL % [facility] Comment: [place] Specimen Anatomical Collection Method Collection Time Receive d Time (Source) Location / / Volume Laterality 06/12/2013 10:12 06/12/2013 PM AVIATION SUPPORT EQUIPMENT REPAIRER 10:12 PM AVIATION SUPPORT EQUIPMENT REPAIRER Narrative [facility] - 06/12/2013 10:15 PM AVIATION SUPPORT EQUIPMENT REPAIRER [place] Historical Provider LAB BLOOD NON ADD-ON Performing Organization Address City/[facility]/ZIP Code Phon e Number [facility] - [address] [phone] [employer] [facility] [facility] (ABNORMAL) Thromboelastograph, Kaolin, Blood (06/12/2013 10:12 PM AVIATION SUPPORT EQUIPMENT REPAIRER) P athologist Signature R Time 7.6 4.0 - 9.0 [facility] Comment: [place] K Time 4.1 (H) 1.0 - 1.8 MIN [facility] LABO RATORIES [facility] Comment: [place] Maximum Amplitude 37.5 (L) 57.1 - 72.6 MM [facility] Comment: [place] Ly30 0.1 0.0 - 4.8 % [facility] LABORA TORIES [facility] Comment: [place] R + K 11.7 (H) 4.9 - 10.8 MIN [facility] Comment: [place] Angle 51.5 (L) 64.0 - 78.1 [facility] Comment: [place] Specimen Anatomical Collection Method Collection Time Receive d Time (Source) Location / / Volume Laterality 06/12/2013 10:12 06/12/2013 PM AVIATION SUPPORT EQUIPMENT REPAIRER 10:12 PM AVIATION SUPPORT EQUIPMENT REPAIRER Narrative [facility] - 06/12/2013 11:15 PM AVIATION SUPPORT EQUIPMENT REPAIRER [place] Historical Provider LAB BLOOD NON ADD-ON Performing Organization Address City/State/ZIP Code Phon e Number [facility] - [address] [phone] [employer] [facility] (ABNORMAL) APTT (Activated Partial Thromboplastin Time) (06/12/2013 10:12 PM AVIATION SUPPORT EQUIPMENT REPAIRER) P athologist Signature APTT, P 91 (H) 28 - 38 SEC [facility] Comment: [place] Specimen Anatomical Collection Method Collection Time Receive d Time (Source) Location / / Volume Laterality 06/12/2013 10:12 06/12/2013 PM AVIATION SUPPORT EQUIPMENT REPAIRER 10:12 PM AVIATION SUPPORT EQUIPMENT REPAIRER Narrative [facility] - 06/12/2013 10:35 PM AVIATION SUPPORT EQUIPMENT REPAIRER [place] Historical Provider LAB BLOOD ADD-ON Performing Organization Address City/[facility]/ZIP Code Phon e Number [facility] LABORATORIES - [address] [place], [place] [address] [employer] [facility] [facility] (ABNORMAL) Glucose, Whole Blood (06/12/2013 10:12 PM AVIATION SUPPORT EQUIPMENT REPAIRER) P athologist Signature Glucose, S 182 (H) 70 - 140 [facility] MG/DL [facility] Comment: [place] Specimen Anatomical Collection Method Collection Time Receive d Time (Source) Location / / Volume Laterality 06/12/2013 10:12 06/12/2013 PM AVIATION SUPPORT EQUIPMENT REPAIRER 10:12 PM AVIATION SUPPORT EQUIPMENT REPAIRER Narrative [facility] - 06/12/2013 10:15 PM AVIATION SUPPORT EQUIPMENT REPAIRER [place] Historical Provider LAB BLOOD TROPONIN Performing Organization Address [facility]/ZIP Code Phon e Number [facility] LABORATORIES - [address] [phone] [employer] [facility] [facility] (ABNORMAL) Sodium (06/12/2013 10:12 PM AVIATION SUPPORT EQUIPMENT REPAIRER) P athologist Signature Sodium, B 132 (L) 135 - 145 [facility] MMOL/L [facility] Comment: [place] Specimen Anatomical Collection Method Collection Time Receive d Time (Source) Location / / Volume Laterality 06/12/2013 10:12 06/12/2013 PM AVIATION SUPPORT EQUIPMENT REPAIRER 10:12 PM AVIATION SUPPORT EQUIPMENT REPAIRER Narrative [facility] - 06/12/2013 10:15 PM AVIATION SUPPORT EQUIPMENT REPAIRER [place] Historical Provider LAB BLOOD ADD-ON Performing Organization Address City/[facility]/ZIP Code Phon e Number [facility]ORATORIES - [address] [phone] [employer] [facility] [facility] (ABNORMAL) Platelet Count (06/12/2013 10:12 PM AVIATION SUPPORT EQUIPMENT REPAIRER) Analysis Performed At Patho logist Time Signature Platelet Count 27 (<) 150 - 450 [facility] X10(9)/L [facility] Comment: [place] Specimen Anatomical Collection Method Collection Time Receive d Time (Source) Location / / Volume Laterality 06/12/2013 10:12 06/12/2013 PM AVIATION SUPPORT EQUIPMENT REPAIRER 10:12 PM AVIATION SUPPORT EQUIPMENT REPAIRER Narrative [facility] - 06/12/2013 10:24 PM AVIATION SUPPORT EQUIPMENT REPAIRER [place] Historical Provider LAB BLOOD ADD-ON Performing Organization Address City/[facility]/ZIP Code Phon e Number [facility] LABORATORIES - [address] [phone] [employer] [facility] Prepare Red Blood Cells (06/12/2013 10:11 PM AVIATION SUPPORT EQUIPMENT REPAIRER) Analysis Performed At [facility] Signature HXRBC # UNITS 6 [facility] TRANSFUSED LABORATORIES [facility] HXRBC UNIT INFO RBC [facility] Comment: Unit Blood Type O Pos Unit Number [id number] Component Type Red Blood Cells - -3 Le ukoreduced Issue Date/Time [id number] Unit Blood Type O Pos Unit Number [id number] Component Type Red Blood Cells - -3 Le ukoreduced Issue Date/Time [id number] Unit Blood Type O Pos Unit Number [id number] Component Type Red Blood Cells - -3 Le ukoreduced Issue Date/Time Unit Blood Type O Pos Unit Number [id number] Component Type Red Blood Cells - -3 Le ukoreduced Issue Date/Time [id number] Unit Blood Type O Pos Unit Number [id number] Component Type Red Blood Cells - -3 Le ukoreduced Issue Date/Time Unit Blood Type O Pos Unit Number [id number] Component Type Red Blood Cells - -3 Le ukoreduced Issue Date/Time [id number] Specimen (Source) Anatomical Collection Method Collection Time Re ceived Time Location / / Volume Laterality 06/12/2013 10:11 PM AVIATION SUPPORT EQUIPMENT REPAIRER Historical Provider BLOOD BANK PRODUCT ORDERABLE S Performing Organization Address City/State/ZIP Code Phon e Number [facility] - [address] [phone] [employer] [facility] [facility] Prepare Red Blood Cells (06/12/2013 10:04 PM AVIATION SUPPORT EQUIPMENT REPAIRER) Analysis Performed At [facility] Time Signature HXRBC # UNITS 6 [facility] TRANSFUSED LABORATORIES [facility] HXRBC UNIT INFO RBC [facility] Comment: Unit Blood Type O Pos Unit Number [id number] Component Type Red Blood Cells - -3 Le ukoreduced Issue Date/Time Unit Blood Type O Pos Unit Number [id number] Component Type Red Blood Cells - -3 Le ukoreduced Issue Date/Time Unit Blood Type O Pos Unit Number [id number] Component Type Red Blood Cells - -3 Le ukoreduced Issue Date/Time Unit Blood Type O Pos Unit Number [id number] Component Type Red Blood Cells - -3 Le ukoreduced Issue Date/Time Unit Blood Type O Pos Unit Number [id number] Component Type Red Blood Cells - -3 Le ukoreduced Issue Date/Time Unit Blood Type O Pos Unit Number [id number] Component Type Red Blood Cells - -3 Le ukoreduced Issue Date/Time Specimen (Source) Anatomical Collection Method Collection Time Re ceived Time Location / / Volume Laterality 06/12/2013 10:04 PM AVIATION SUPPORT EQUIPMENT REPAIRER Historical Provider BLOOD BANK PRODUCT ORDERABLE S Performing Organization Address City/State/[facility] Code Phon e Number [facility] - [address] [place] [phone] [employer] [facility] [facility] Microbiology Reports (06/12/2013 9:58 PM AVIATION SUPPORT EQUIPMENT REPAIRER) Specimen Anatomical Collection Method Collection Time Receive d Time (Source) Location / / Volume Laterality 06/12/2013 9:58 PM 3 7:49 AVIATION SUPPORT EQUIPMENT REPAIRER AM AVIATION SUPPORT EQUIPMENT REPAIRER Narrative [facility] - [facility] - 07/07/2013 1:09 PM AVIATION SUPPORT EQUIPMENT REPAIRER 12-JUN-2013 LIVER BIOPSY, TISSUE ? SoftOrd# [id number] ?(Ordered 13-JUN-2013; Collec onel 12-JUN-2013 21:58; Received 13-JUN-2013 07:48) ?[facility] ?Viral Culture: Examine for C ytomegalovirus ?FUNGAL CULTURE, ROUTINE ? (Reported 07-JUL-2013 13:09) FINAL ?No growth after 24 days of i ncubation. ?VIRAL CULTURE, NON RESPIRATORY ?(Reported 14-JUN-2013 12:57) FINAL ?Shell vial assay negative fo r Cytomegalovirus. Quantity not sufficient to perform complete viral ?culture. ?BACTERIAL CULTURE, AEROBIC ?(Reported 18-JUN-2013 09:09) FINAL ?No growth after 5 days of in cubation. Procedure Note 10/01/2017 12-JUN-2013 LIVER BIOPSY, TISSUE SoftOr d# [id number] (Ordered 13-JUN-2013; Collected 2012 21:58; Received 13-JUN-2013 07:48) [facility] Viral Culture: Examine for Cytomegalovi ilsa FUNGAL CULTURE, ROUTINE (Reported 13:09) FINAL No growth after 24 days of incubation. VIRAL CULTURE, NON RESPIRATORY (Report ed 14-JUN-2013 12:57) FINAL Shell vial assay negative for Cytomegal ovirus. Quantity not sufficient to perform complete viral culture. BACTERIAL CULTURE, AEROBIC (Reported 2 29-MAY-2013 09:09) FINAL No growth after 5 days of incubation. He Grayson M.D. LAB MICROBIOLOGY - GENERAL O RDERABLES Performing Organization Address City/State/ZIP Code Phon e Number [facility]ORATORIES - [address] [place], [place] [address] [employer] [facility] [facility] (ABNORMAL) PT (Prothrombin Time) with INR (06/12/2013 9:56 PM AVIATION SUPPORT EQUIPMENT REPAIRER) [facility] Method Time Signature Prothrombin 23.8 (H) 9.5 - [facility] Time, P 13.8 SEC [facility] INR 2.2 0.8 - 1.2 [facility] Specimen Anatomical Collection Method Collection Time Receive d Time (Source) Location / / Volume Laterality 06/12/2013 9:56 PM 3 9:56 AVIATION SUPPORT EQUIPMENT REPAIRER PM AVIATION SUPPORT EQUIPMENT REPAIRER Historical Provider LAB BLOOD ADD-ON Performing Organization Address City/State/ZIP Code Phon e Number [facility]ATORIES - [address] [phone] [employer] [facility] [facility] (ABNORMAL) Calcium, Ionized (06/12/2013 9:56 PM AVIATION SUPPORT EQUIPMENT REPAIRER) [facility] gist Method Time Signature Calcium, 3.10 (L) 4.65 - [facility] Ionized, B 5.30 LABORATORIES - MG/DL [employer] [facility] [facility] Specimen Anatomical Collection Method Collection Time Receive d Time (Source) Location / / Volume Laterality 06/12/2013 9:56 PM 3 9:56 AVIATION SUPPORT EQUIPMENT REPAIRER PM AVIATION SUPPORT EQUIPMENT REPAIRER Historical Provider LAB BLOOD NON ADD-ON Performing Organization Address City/[facility]/ZIP Code Phon e Number [facility]IES - [address] [phone] [employer] [facility] [facility] (ABNORMAL) APTT (Activated Partial Thromboplastin Time) (06/12/2013 9:56 PM AVIATION SUPPORT EQUIPMENT REPAIRER) P athologist Signature APTT, P 73 (H) 28 - 38 SEC [facility] Specimen Anatomical Collection Method Collection Time Receive d Time (Source) Location / / Volume Laterality 06/12/2013 9:56 PM 3 9:56 AVIATION SUPPORT EQUIPMENT REPAIRER PM AVIATION SUPPORT EQUIPMENT REPAIRER Historical Provider LAB BLOOD ADD-ON Performing Organization Address City/[facility]/ZIP Code Phon e Number [facility] - [address] [phone] [employer] [facility] [facility] (ABNORMAL) Platelet Count (06/12/2013 9:56 PM AVIATION SUPPORT EQUIPMENT REPAIRER) Analysis Performed At Patho logist Time Signature Platelet Count 53 (L) 150 - 450 [facility] X10(9)/L LABORATORIES - [employer] [facility] [facility] Specimen Anatomical Collection Method Collection Time Receive d Time (Source) Location / / Volume Laterality 06/12/2013 9:56 PM 3 9:56 AVIATION SUPPORT EQUIPMENT REPAIRER PM AVIATION SUPPORT EQUIPMENT REPAIRER Historical Provider LAB BLOOD ADD-ON Performing Organization Address City/[facility]/ZIP Code Phon e Number [facility] - [address] [phone] [employer] [facility] [employer] [facility] (ABNORMAL) Fibrinogen (06/12/2013 9:56 PM AVIATION SUPPORT EQUIPMENT REPAIRER) [facility] gist Method Time Signature Fibrinogen, P 102 (L) 200 - 375 [facility] MG/DL [facility] Specimen Anatomical Collection Method Collection Time Receive d Time (Source) Location / / Volume Laterality 06/12/2013 9:56 PM 3 9:56 AVIATION SUPPORT EQUIPMENT REPAIRER PM AVIATION SUPPORT EQUIPMENT REPAIRER Historical Provider LAB BLOOD ADD-ON Performing Organization Address City/[facility]/ZIP Code Phon e Number [facility]IES - [address] [place] [phone] 05 [employer] [facility] [employer] [facility] Potassium, Blood (06/12/2013 9:56 PM AVIATION SUPPORT EQUIPMENT REPAIRER) P athologist Signature Potassium, B 4.1 3.6 - 5.2 [facility] MMOL/L [facility] Specimen Anatomical Collection Method Collection Time Receive d Time (Source) Location / / Volume Laterality 06/12/2013 9:56 PM 3 9:56 AVIATION SUPPORT EQUIPMENT REPAIRER PM AVIATION SUPPORT EQUIPMENT REPAIRER Historical Provider LAB BLOOD NON ADD-ON Performing Organization Address City/[facility]/ZIP [facility] Phon e Number [facility]IES - [address] [place], [place] [address] [employer] [facility] [facility] (ABNORMAL) Glucose, Whole Blood (06/12/2013 9:56 PM AVIATION SUPPORT EQUIPMENT REPAIRER) P athologist Signature Glucose, S 185 (H) 70 - 140 [facility] MG/DL [facility] Specimen Anatomical Collection Method Collection Time Receive d Time (Source) Location / / Volume Laterality 06/12/2013 9:56 PM 3 9:56 AVIATION SUPPORT EQUIPMENT REPAIRER PM AVIATION SUPPORT EQUIPMENT REPAIRER Historical Provider LAB BLOOD TROPONIN Performing Organization Address City/[facility] Code Phon e Number [facility]IES - [address] [place], [place] [address] [employer] [facility] (ABNORMAL) Sodium (06/12/2013 9:56 PM AVIATION SUPPORT EQUIPMENT REPAIRER) P athologist Signature Sodium, B 134 (L) 135 - 145 [facility] MMOL/L [facility] Specimen Anatomical Collection Method Collection Time Receive d Time (Source) Location / / Volume Laterality 06/12/2013 9:56 PM 3 9:56 AVIATION SUPPORT EQUIPMENT REPAIRER PM AVIATION SUPPORT EQUIPMENT REPAIRER Historical Provider LAB BLOOD ADD-ON Performing Organization Address City/[facility]/ZIP Code Phon e Number [facility] - [address] [place], [place] [address] [employer] [facility] (ABNORMAL) Thromboelastograph, Kaolin, Blood (06/12/2013 9:56 PM AVIATION SUPPORT EQUIPMENT REPAIRER) Patholo gist Method Time Signature R Time 5.9 4.0 - 9.0 [facility] MIN [facility] K Time 1.8 1.0 - 1.8 [facility] MIN [facility] [employer] [facility] [facility] R + K 7.7 4.9 - 10.8 [facility] MIN [facility] Angle 66.3 64.0 - 78.1 [facility] DEGREES [facility] Maximum 47.0 (L) 57.1 - 72.6 [facility] Amplitude MM [facility] [employer] [facility] Ly30 4.1 0.0 - 4.8 % [facility] Specimen Anatomical Collection Method Collection Time Receive d Time (Source) Location / / Volume Laterality 06/12/2013 9:56 PM 3 9:56 AVIATION SUPPORT EQUIPMENT REPAIRER PM AVIATION SUPPORT EQUIPMENT REPAIRER Historical Provider LAB BLOOD NON ADD-ON Performing Organization Address City/State/ZIP Code Phon e Number [facility]IES - [address] [place], [place] [address] [employer] [facility] [facility] (ABNORMAL) Blood Gas with Coox, Arterial (06/12/2013 9:56 PM AVIATION SUPPORT EQUIPMENT REPAIRER) Analysis Performed At Patho logist Time Signature pH 7.24 (L) 7.35 - [facility] 7.45 PH [facility] Base Excess -14 (L) -2 - 2 [facility] MMOL/L [facility] pO2 195 (H) 80 - 100 [facility] MM HG [facility] pCO2 33 (L) 35 - 45 MM [facility] HG [facility] HCO3 14 (L) 22 - 26 [facility] MMOL/L [facility] Hb 6.9 (L) 13.5 - [facility] 17.5 G/DL [facility] O2Hb 98.0 94.0 - [facility] 98.0 % [facility] COHb 1.0 <3.0 % [facility] MetHb <1.0 <1.6 % [facility] CtO2 10.1 (L) 21.0 - [facility] 23.0 VOL % [facility] Specimen Anatomical Collection Method Collection Time Receive d Time (Source) Location / / Volume Laterality 06/12/2013 9:56 PM 3 9:56 AVIATION SUPPORT EQUIPMENT REPAIRER PM AVIATION SUPPORT EQUIPMENT REPAIRER Historical Provider LAB BLOOD NON ADD-ON Performing Organization Address [facility] Phon e Number [facility] - [address] Prepare fresh frozen plasma (06/12/2013 9:50 PM AVIATION SUPPORT EQUIPMENT REPAIRER) Analysis [facility] Time Signature HXFFP # UNITS 4 [facility] TRANSFUSED [facility] HXFFP UNIT INFO FFP [facility] Comment: Unit Blood Type O Pos Unit Number [id number] Component Type Thawed PLASMA Issue Date/Time Unit Blood Type O Pos Unit Number [id number] Component Type Thawed PLASMA Issue Date/Time Unit Blood Type O Neg Unit Number [id number] Component Type Thawed PLASMA Issue Date/Time Unit Blood Type O Pos Unit Number [id number] Component Type Thawed PLASMA Issue Date/Time Specimen (Source) Anatomical Collection Method Collection Time Re ceived Time Location / / Volume Laterality 06/12/2013 9:50 PM AVIATION SUPPORT EQUIPMENT REPAIRER Historical Provider BLOOD BANK PRODUCT ORDERABLE S Performing Organization Address [facility] Phon e Number [facility] - [address] [place] [phone] [employer] [facility] [facility] Prepare Red Blood Cells (06/12/2013 9:50 PM AVIATION SUPPORT EQUIPMENT REPAIRER) Analysis Performed At [facility] Time Signature HXRBC # UNITS 4 [facility] TRANSFUSED [facility] HXRBC UNIT INFO RBC [facility] Comment: Unit Blood Type O Pos Unit Number [id number] Component Type Red Blood Cells - -3 Le ukoreduced Issue Date/Time Unit Blood Type O Pos Unit Number [id number] Component Type Red Blood Cells - -3 Le ukoreduced Issue Date/Time Unit Blood Type O Pos Unit Number [id number] Component Type Red Blood Cells - -3 Le ukoreduced Issue Date/Time Unit Blood Type O Pos Unit Number [id number] Component Type Red Blood Cells - -3 Le ukoreduced Issue Date/Time Specimen (Source) Anatomical Collection Method Collection Time Re ceived Time Location / / Volume Laterality 06/12/2013 9:50 PM AVIATION SUPPORT EQUIPMENT REPAIRER Historical Provider BLOOD BANK PRODUCT ORDERABLE S Performing Organization Address City/[facility] Code Phon e Number [facility]IES - [address] [place] [phone] [employer] [facility] [facility] Prepare Red Blood Cells (06/12/2013 9:38 PM AVIATION SUPPORT EQUIPMENT REPAIRER) Analysis Performed At Patho logist Time Signature HXRBC # UNITS 6 [facility] TRANSFUSED [facility] HXRBC UNIT INFO RBC [facility] Comment: Unit Blood Type O Pos Unit Number [id number] Component Type Red Blood Cells - -1 Le ukoreduced Issue Date/Time [id number] Unit Blood Type O Pos Unit Number [id number] Component Type Red Blood Cells - -1 Le ukoreduced Issue Date/Time [id number] Unit Blood Type O Pos Unit Number [id number] Component Type Red Blood Cells - -1 Le ukoreduced Issue Date/Time [id number] Unit Blood Type O Pos Unit Number [id number] Component Type Red Blood Cells - -1 Le ukoreduced Issue Date/Time [id number] Unit Blood Type O Pos Unit Number [id number] Component Type Red Blood Cells - -3 Le ukoreduced Issue Date/Time [id number] Unit Blood Type O Pos Unit Number [id number] Component Type Red Blood Cells - -3 Le ukoreduced Issue Date/Time [id number] Specimen (Source) Anatomical Collection Method Collection Time Re ceived Time Location / / Volume Laterality 06/12/2013 9:38 PM AVIATION SUPPORT EQUIPMENT REPAIRER Historical Provider BLOOD BANK PRODUCT ORDERABLE S Performing Organization Address City/[facility]/ZIP Code Phon e Number [facility] - [address] [place] [phone] [employer] [facility] [facility] (ABNORMAL) Fibrinogen (06/12/2013 9:24 PM AVIATION SUPPORT EQUIPMENT REPAIRER) Patholo gist Method Time Signature Fibrinogen, P 105 (L) 200 - 375 [facility] MG/DL [facility] Comment: [place] Specimen Anatomical Collection Method Collection Time Receive d Time (Source) Location / / Volume Laterality 06/12/2013 9:24 PM 3 9:24 AVIATION SUPPORT EQUIPMENT REPAIRER PM AVIATION SUPPORT EQUIPMENT REPAIRER Narrative [facility] - 06/12/2013 9:45 PM AVIATION SUPPORT EQUIPMENT REPAIRER [place] Historical Provider LAB BLOOD ADD-ON Performing Organization Address City/[facility]/ZIP Code Phon e Number [facility] - [address] [phone] [employer] [facility] [facility] Potassium, Blood (06/12/2013 9:24 PM AVIATION SUPPORT EQUIPMENT REPAIRER) athologist [facility] Potassium, B 3.9 3.6 - 5.2 [facility] MMOL/L [facility] Comment: [place] Specimen Anatomical Collection Method Collection Time Receive d Time (Source) Location / / Volume Laterality 06/12/2013 9:24 PM 3 9:24 AVIATION SUPPORT EQUIPMENT REPAIRER PM AVIATION SUPPORT EQUIPMENT REPAIRER Narrative [facility] - 06/12/2013 9:33 PM AVIATION SUPPORT EQUIPMENT REPAIRER [place] Historical Provider LAB BLOOD NON ADD-ON Performing Organization Address City/[facility] Phon e Number [facility] - [address] [phone] 05 [employer] [facility] (ABNORMAL) Blood Gas with Coox, Arterial (06/12/2013 9:24 PM AVIATION SUPPORT EQUIPMENT REPAIRER) athologist Signature pO2 185 (H) 80 - 100 [facility] MM HG [facility] Comment: [place] pCO2 34 (L) 35 - 45 MM HG [facility] Comment: [place] HCO3 14 (L) 22 - 26 MMOL/L [facility] Comment: [place] Hb 6.8 (L) 13.5 - 17.5 G/DL [facility] Comment: [place] O2Hb 97.7 94.0 - 98.0 % [facility] Comment: [place] COHb 1.0 <3.0 % [facility] Comment: [place] MetHb 1.1 <1.6 % [facility] Comment: [place] CtO2 9.8 (L) 21.0 - 23.0 VOL % [facility] Comment: [place] pH 7.24 (L) 7.35 - 7.45 PH [facility] Comment: [place] Base Excess -13 (L) -2 - 2 MMOL/L [facility] Comment: [place] Specimen Anatomical Collection Method Collection Time Receive d Time (Source) Location / / Volume Laterality 06/12/2013 9:24 PM 3 9:24 AVIATION SUPPORT EQUIPMENT REPAIRER PM AVIATION SUPPORT EQUIPMENT REPAIRER Narrative [facility] - 06/12/2013 9:33 PM AVIATION SUPPORT EQUIPMENT REPAIRER [place] Historical Provider LAB BLOOD NON ADD-ON Performing Organization Address City/[facility] Phon e Number [facility] - [address] [phone] [employer] [facility] [facility] Calcium, Ionized (06/12/2013 9:24 PM AVIATION SUPPORT EQUIPMENT REPAIRER) athologist Signature Calcium, 5.03 4.65 - [facility] Ionized, B 5.30 MG/DL [facility] Comment: [place] Specimen Anatomical Collection Method Collection Time Receive d Time (Source) Location / / Volume Laterality 06/12/2013 9:24 PM 3 9:24 AVIATION SUPPORT EQUIPMENT REPAIRER PM AVIATION SUPPORT EQUIPMENT REPAIRER Narrative [facility] - 06/12/2013 9:33 PM AVIATION SUPPORT EQUIPMENT REPAIRER [place] Historical Provider LAB BLOOD NON ADD-ON Performing Organization Address City/State/[facility] Code Phon e Number [facility] - [address] [phone] [employer] [facility] [facility] Thromboelastograph, Kaolin, Blood (06/12/2013 9:24 PM AVIATION SUPPORT EQUIPMENT REPAIRER) athologist Signature R + K 5.5 4.9 - 10.8 [facility] Comment: [place] Angle 73.4 64.0 - 78.1 [facility] Comment: [place] Maximum Amplitude 58.6 57.1 - 72.6 MM [facility] Comment: [place] Ly30 0.0 0.0 - 4.8 % [facility] Comment: [place] R Time 4.4 4.0 - 9.0 MIN [facility] Comment: [place] K Time 1.1 1.0 - 1.8 MIN [facility] Comment: [place] Specimen Anatomical Collection Method Collection Time Receive d Time (Source) Location / / Volume Laterality 06/12/2013 9:24 PM 3 9:24 AVIATION SUPPORT EQUIPMENT REPAIRER PM AVIATION SUPPORT EQUIPMENT REPAIRER Narrative [facility] - 06/12/2013 10:18 PM AVIATION SUPPORT EQUIPMENT REPAIRER [place] Historical Provider LAB BLOOD NON ADD-ON Performing Organization Address City/[facility]/ZIP Code Phon e Number [facility] - [address] [phone] [employer] [facility] Glucose, Whole Blood (06/12/2013 9:24 PM AVIATION SUPPORT EQUIPMENT REPAIRER) P athologist Signature Glucose, S 137 70 - 140 [facility] MG/DL [facility] Comment: [place] Specimen Anatomical Collection Method Collection Time Receive d Time (Source) Location / / Volume Laterality 06/12/2013 9:24 PM 3 9:24 AVIATION SUPPORT EQUIPMENT REPAIRER PM AVIATION SUPPORT EQUIPMENT REPAIRER Narrative [facility] - 06/12/2013 9:33 PM AVIATION SUPPORT EQUIPMENT REPAIRER [place] Historical Provider LAB BLOOD TROPONIN Performing Organization Address City/[facility]/ZIP Code Phon e Number [facility] - [address] [phone] [employer] [facility] [facility] (ABNORMAL) Sodium (06/12/2013 9:24 PM AVIATION SUPPORT EQUIPMENT REPAIRER) P athologist Signature Sodium, B 131 (L) 135 - 145 [facility] MMOL/L [facility] Comment: [place] Specimen Anatomical Collection Method Collection Time Receive d Time (Source) Location / / Volume Laterality 06/12/2013 9:24 PM 3 9:24 AVIATION SUPPORT EQUIPMENT REPAIRER PM AVIATION SUPPORT EQUIPMENT REPAIRER Narrative [facility] - 06/12/2013 9:33 PM AVIATION SUPPORT EQUIPMENT REPAIRER [place] Historical Provider LAB BLOOD ADD-ON Performing Organization Address City/State/ZIP Code Phon e Number [facility] - [address] [phone] [employer] [facility] [facility] (ABNORMAL) PT (Prothrombin Time) with INR (06/12/2013 9:24 PM AVIATION SUPPORT EQUIPMENT REPAIRER) Patholo gist Method Time Signature Prothrombin 24.7 (H) 9.5 - [facility] Time, P 13.8 SEC [facility] Comment: [place] INR 2.3 0.8 - 1.2 [facility] - [employer] [facility] [facility] Comment: [place] Specimen Anatomical Collection Method Collection Time Receive d Time (Source) Location / / Volume Laterality 06/12/2013 9:24 PM 3 9:24 AVIATION SUPPORT EQUIPMENT REPAIRER PM AVIATION SUPPORT EQUIPMENT REPAIRER Narrative [facility] - 06/12/2013 9:45 PM AVIATION SUPPORT EQUIPMENT REPAIRER [place] Historical Provider LAB BLOOD ADD-ON Performing Organization Address City/[facility]/ZIP Code Phon e Number [facility] - [address] [phone] [employer] [facility] (ABNORMAL) Platelet Count (06/12/2013 9:24 PM AVIATION SUPPORT EQUIPMENT REPAIRER) Analysis Performed At Patho logist Time Signature Platelet Count 97 (L) 150 - 450 [facility] X10(9)/L [facility] Comment: [place] Specimen Anatomical Collection Method Collection Time Receive d Time (Source) Location / / Volume Laterality 06/12/2013 9:24 PM 3 9:24 AVIATION SUPPORT EQUIPMENT REPAIRER PM AVIATION SUPPORT EQUIPMENT REPAIRER Narrative [facility] - 06/12/2013 9:31 PM AVIATION SUPPORT EQUIPMENT REPAIRER [place] Historical Provider LAB BLOOD ADD-ON Performing Organization Address City/[facility]/ZIP Code Phon e Number [facility] - [address] [phone] [employer] [facility] (ABNORMAL) APTT (Activated Partial Thromboplastin Time) (06/12/2013 9:24 PM AVIATION SUPPORT EQUIPMENT REPAIRER) P athologist Signature APTT, P 64 (H) 28 - 38 [facility] Comment: [place] Specimen Anatomical Collection Method Collection Time Receive d Time (Source) Location / / Volume Laterality 06/12/2013 9:24 PM 3 9:24 AVIATION SUPPORT EQUIPMENT REPAIRER PM AVIATION SUPPORT EQUIPMENT REPAIRER Narrative [facility] - 06/12/2013 9:45 PM AVIATION SUPPORT EQUIPMENT REPAIRER [place] Historical Provider LAB BLOOD ADD-ON Performing Organization Address City/[facility]/ZIP Code Phon e Number [facility] - [address] [phone] [employer] [facility] (ABNORMAL) Fibrinogen (06/12/2013 8:53 PM AVIATION SUPPORT EQUIPMENT REPAIRER) Patholo gist Method Time Signature Fibrinogen, P 155 (L) 200 - 375 [facility] MG/DL [facility] Comment: [place] Specimen Anatomical Collection Method Collection Time Receive d Time (Source) Location / / Volume Laterality 06/12/2013 8:53 PM 3 8:53 AVIATION SUPPORT EQUIPMENT REPAIRER PM AVIATION SUPPORT EQUIPMENT REPAIRER Narrative [facility] - 06/12/2013 9:14 PM AVIATION SUPPORT EQUIPMENT REPAIRER [place] Historical Provider LAB BLOOD ADD-ON Performing Organization Address City/[facility]/ZIP Code Phon e Number [facility] - [address] [place], [place] [address] [employer] [facility] [facility] (ABNORMAL) Platelet Count (06/12/2013 8:53 PM AVIATION SUPPORT EQUIPMENT REPAIRER) Analysis Performed At Patho logist Time Signature Platelet Count 87 (L) 150 - 450 [facility] X10(9)/L [facility] Comment: [place] Specimen Anatomical Collection Method Collection Time Receive d Time (Source) Location / / Volume Laterality 06/12/2013 8:53 PM 3 8:53 AVIATION SUPPORT EQUIPMENT REPAIRER PM AVIATION SUPPORT EQUIPMENT REPAIRER Narrative [facility] - 06/12/2013 9:01 PM AVIATION SUPPORT EQUIPMENT REPAIRER [place] Historical Provider LAB BLOOD ADD-ON Performing Organization Address City/[facility]/ZIP [facility] Phon e Number [facility] [address] [phone] [employer] [facility] (ABNORMAL) APTT (Activated Partial Thromboplastin Time) (06/12/2013 8:53 PM AVIATION SUPPORT EQUIPMENT REPAIRER) P athologist Signature APTT, P 46 (H) 28 - 38 [facility] Comment: [place] Specimen Anatomical Collection Method Collection Time Receive d Time (Source) Location / / Volume Laterality 06/12/2013 8:53 PM 3 8:53 AVIATION SUPPORT EQUIPMENT REPAIRER PM AVIATION SUPPORT EQUIPMENT REPAIRER Narrative [facility] - 06/12/2013 9:14 PM AVIATION SUPPORT EQUIPMENT REPAIRER [place] Historical Provider LAB BLOOD ADD-ON Performing Organization Address City/[facility] Phon e Number [facility] [address] [phone] [employer] [facility] Thromboelastograph, Kaolin, Blood (06/12/2013 8:53 PM AVIATION SUPPORT EQUIPMENT REPAIRER) P athologist Signature R + K 5.6 4.9 - 10.8 [facility] Comment: [place] Angle 71.1 64.0 - 78.1 [facility] Comment: [place] R Time 4.3 4.0 - 9.0 MIN [facility] Comment: [place] K Time 1.3 1.0 - 1.8 MIN [facility] Comment: [place] Maximum Amplitude 60.5 57.1 - 72.6 MM [facility] Comment: [place] Ly30 0.0 0.0 - 4.8 % [facility] Comment: [place] Specimen Anatomical Collection Method Collection Time Receive d Time (Source) Location / / Volume Laterality 06/12/2013 8:53 PM 3 8:53 AVIATION SUPPORT EQUIPMENT REPAIRER PM AVIATION SUPPORT EQUIPMENT REPAIRER Narrative [facility] - 06/12/2013 10:02 PM AVIATION SUPPORT EQUIPMENT REPAIRER [place] Historical Provider LAB BLOOD NON ADD-ON Performing Organization Address City/State/[facility] Code Phon e Number [facility] - [address] [phone] [employer] [facility] Calcium, Ionized (06/12/2013 8:53 PM AVIATION SUPPORT EQUIPMENT REPAIRER) P athologist Signature Calcium, 5.04 4.65 - [facility] Ionized, B 5.30 MG/DL [facility] Comment: [place] Specimen Anatomical Collection Method Collection Time Receive d Time (Source) Location / / Volume Laterality 06/12/2013 8:53 PM 3 8:53 AVIATION SUPPORT EQUIPMENT REPAIRER PM AVIATION SUPPORT EQUIPMENT REPAIRER Narrative [facility] - 06/12/2013 8:57 PM AVIATION SUPPORT EQUIPMENT REPAIRER [place] Historical Provider LAB BLOOD NON ADD-ON Performing Organization Address City/State/ZIP Code Phon e Number [facility] - [address] [phone] [employer] [facility] [facility] (ABNORMAL) PT (Prothrombin Time) with INR (06/12/2013 8:53 PM AVIATION SUPPORT EQUIPMENT REPAIRER) Patholo gist Method Time Signature Prothrombin 20.9 (H) 9.5 - [facility] Time, P 13.8 SEC [facility] Comment: [place] INR 1.9 0.8 - 1.2 [facility] Comment: [place] Specimen Anatomical Collection Method Collection Time Receive d Time (Source) Location / / Volume Laterality 06/12/2013 8:53 PM 3 8:53 AVIATION SUPPORT EQUIPMENT REPAIRER PM AVIATION SUPPORT EQUIPMENT REPAIRER Narrative [facility] - 06/12/2013 9:14 PM AVIATION SUPPORT EQUIPMENT REPAIRER [place] Historical Provider LAB BLOOD ADD-ON Performing Organization Address City/[facility] Code Phon e Number [facility] - [address] [phone] [employer] [facility] (ABNORMAL) Blood Gas with Coox, Arterial (06/12/2013 8:53 PM AVIATION SUPPORT EQUIPMENT REPAIRER) athologist Signature pH 7.30 (L) 7.35 - [facility] 7.45 PH [facility] Comment: [place] Base Excess -8 (L) -2 - 2 MMOL/L [facility] Comment: [place] HCO3 18 (L) 22 - 26 MMOL/L [facility] Comment: [place] Hb 7.3 (L) 13.5 - 17.5 G/DL [facility] Comment: [place] O2Hb 98.3 (H) 94.0 - 98.0 % [facility] Comment: [place] COHb 1.0 <3.0 % [facility] Comment: [place] pO2 190 (H) 80 - 100 MM HG [facility] Comment: [place] pCO2 37 35 - 45 MM HG [facility] Comment: [place] MetHb <1.0 <1.6 % [facility] Comment: [place] CtO2 10.5 (L) 21.0 - 23.0 VOL % [facility] Comment: [place] Specimen Anatomical Collection Method Collection Time Receive d Time (Source) Location / / Volume Laterality 06/12/2013 8:53 PM 3 8:53 AVIATION SUPPORT EQUIPMENT REPAIRER PM AVIATION SUPPORT EQUIPMENT REPAIRER Narrative [facility] - 06/12/2013 8:57 PM AVIATION SUPPORT EQUIPMENT REPAIRER [place] Historical Provider LAB BLOOD NON ADD-ON Performing Organization Address City/[facility]/ZIP Code Phon e Number [facility] - [address] [phone] [employer] [facility] (ABNORMAL) Sodium (06/12/2013 8:53 PM AVIATION SUPPORT EQUIPMENT REPAIRER) athologist Signature Sodium, B 130 (L) 135 - 145 [facility] MMOL/L [facility] Comment: [place] Specimen Anatomical Collection Method Collection Time Receive d Time (Source) Location / / Volume Laterality 06/12/2013 8:53 PM 3 8:53 AVIATION SUPPORT EQUIPMENT REPAIRER PM AVIATION SUPPORT EQUIPMENT REPAIRER Narrative [facility] - 06/12/2013 8:57 PM AVIATION SUPPORT EQUIPMENT REPAIRER [place] Historical Provider LAB BLOOD ADD-ON Performing Organization Address City/[facility] Phon e Number [facility] - [address] [phone] [employer] [facility] Potassium, Blood (06/12/2013 8:53 PM AVIATION SUPPORT EQUIPMENT REPAIRER) athologist Signature Potassium, B 4.1 3.6 - 5.2 [facility] MMOL/L [facility] Comment: [place] Specimen Anatomical Collection Method Collection Time Receive d Time (Source) Location / / Volume Laterality 06/12/2013 8:53 PM 3 8:53 AVIATION SUPPORT EQUIPMENT REPAIRER PM AVIATION SUPPORT EQUIPMENT REPAIRER Narrative [facility] - 06/12/2013 8:57 PM AVIATION SUPPORT EQUIPMENT REPAIRER [place] Historical Provider LAB BLOOD NON ADD-ON Performing Organization Address City/[facility] Code Phon e Number [facility] - [address] [address] [employer] [facility] Glucose, Whole Blood (06/12/2013 8:53 PM AVIATION SUPPORT EQUIPMENT REPAIRER) athologist Signature Glucose, S 131 70 - 140 [facility] MG/DL [facility] Comment: [place] Specimen Anatomical Collection Method Collection Time Receive d Time (Source) Location / / Volume Laterality 06/12/2013 8:53 PM 3 8:53 AVIATION SUPPORT EQUIPMENT REPAIRER PM AVIATION SUPPORT EQUIPMENT REPAIRER Narrative [facility] - 06/12/2013 8:57 PM AVIATION SUPPORT EQUIPMENT REPAIRER [place] Historical Provider LAB BLOOD TROPONIN Performing Organization Address City/[facility] Code Phon e Number [facility] - [address] [phone] [employer] [facility] [facility] Prepare cryoprecipitate (06/12/2013 8:49 PM AVIATION SUPPORT EQUIPMENT REPAIRER) Analysis Performed At Patho logist Time Signature HXCRYO # UNITS 2 [facility] TRANSFUSED [facility] HXCRYO UNIT CRYO [facility] Comment: Unit Blood Type O Pos Unit Number [id number] Component Type Cryoprecipitated AHF - Po oled, Frozen Issue Date/Time Unit Blood Type O Rh Unk Unit Number [id number] Component Type Cryoprecipitated [facility]HF - Po oled, Frozen Issue Date/Time Specimen (Source) Anatomical Collection Method Collection Time Re ceived Time Location / / Volume Laterality 06/12/2013 8:49 PM AVIATION SUPPORT EQUIPMENT REPAIRER Historical Provider BLOOD BANK PRODUCT ORDERABLE S Performing Organization Address [facility] Phon e Number [facility] - [address] Prepare platelets (06/12/2013 8:49 PM AVIATION SUPPORT EQUIPMENT REPAIRER) Patholo gist Method Time Signature HXPLT # UNITS 1 [facility] TRANSFUSED [facility] HXPLATELETS UNIT PLT [facility] Comment: Unit Blood Type O Neg Unit Number [id number] Component Type Platelets, Apheresis Leuk oreduced, Irradiated, Bag 2 Issue Date/Time Specimen (Source) Anatomical Collection Method Collection Time Re ceived Time Location / / Volume Laterality 06/12/2013 8:49 PM AVIATION SUPPORT EQUIPMENT REPAIRER Historical Provider BLOOD BANK PRODUCT ORDERABLE S Performing Organization Address [facility] Phon e Number [facility] - [address] Prepare fresh frozen plasma (06/12/2013 8:49 PM AVIATION SUPPORT EQUIPMENT REPAIRER) Analysis Performed At Patho logist Time Signature HXFFP # UNITS 4 [facility] TRANSFUSED [facility] HXFFP UNIT INFO [facility] Comment: Unit Blood Type B Neg Unit Number [id number] Component Type Thawed PLASMA Issue Date/Time Unit Blood Type B Pos Unit Number [id number] Component Type Thawed PLASMA Issue Date/Time Unit Blood Type B Pos Unit Number [id number] Component Type Thawed PLASMA Issue Date/Time Unit Blood Type O Pos Unit Number [id number] Component Type Thawed PLASMA Issue Date/Time Specimen (Source) Anatomical Collection Method Collection Time Re ceived Time Location / / Volume Laterality 06/12/2013 8:49 PM AVIATION SUPPORT EQUIPMENT REPAIRER Historical Provider BLOOD BANK PRODUCT ORDERABLE S Performing Organization Address [facility] Phon e Number [facility] - [address] Prepare Red Blood Cells (06/12/2013 8:48 PM AVIATION SUPPORT EQUIPMENT REPAIRER) Analysis Performed At Patho logist Time Signature HXRBC # UNITS 5 [facility] TRANSFUSED [facility] HXRBC UNIT INFO RBC [facility] Comment: Unit Blood Type O Pos Unit Number [id number] Component Type Red Blood Cells - -1 Le ukoreduced Issue Date/Time Unit Blood Type O Pos Unit Number [id number] Component Type Red Blood Cells - -1 Le ukoreduced Issue Date/Time Unit Blood Type O Pos Unit Number [id number] Component Type Red Blood Cells - -3 Le ukoreduced Issue Date/Time Unit Blood Type O Pos Unit Number [id number] Component Type Red Blood Cells - -3 Le ukoreduced Issue Date/Time Unit Blood Type O Pos Unit Number [id number] Component Type Red Blood Cells - -3 Le ukoreduced Issue Date/Time [id number] Specimen (Source) Anatomical Collection Method Collection Time Re ceived Time Location / / Volume Laterality 06/12/2013 8:48 PM AVIATION SUPPORT EQUIPMENT REPAIRER Historical Provider BLOOD BANK PRODUCT ORDERABLE S Performing Organization Address City/[facility]/ZIP Code Phon e Number [facility] - [address] [address] [employer] [facility] [facility] Prepare platelets (06/12/2013 8:00 PM AVIATION SUPPORT EQUIPMENT REPAIRER) Patholo gist Method Time Signature HXPLT # UNITS 1 [facility] TRANSFUSED [facility] HXPLATELETS UNIT PLT [facility] Comment: Unit Blood Type O Pos Unit Number [id number] Component Type Platelets, Apheresis Leuk oreduced, Irradiated, Bag 1 Issue Date/Time [id number] Specimen (Source) Anatomical Collection Method Collection Time Re ceived Time Location / / Volume Laterality 06/12/2013 8:00 PM AVIATION SUPPORT EQUIPMENT REPAIRER Historical Provider BLOOD BANK PRODUCT ORDERABLE S Performing Organization Address City/[facility]/ZIP Code Phon e Number [facility] - [address] [address] [employer] [facility] [facility] Prepare fresh frozen plasma (06/12/2013 8:00 PM AVIATION SUPPORT EQUIPMENT REPAIRER) Analysis Performed At Path logist Time Signature HXFFP # UNITS 4 [facility] TRANSFUSED [facility] HXFFP UNIT INFO [facility] Comment: Unit Blood Type O Neg Unit Number [id number] Component Type Thawed PLASMA Issue Date/Time Unit Blood Type O Pos Unit Number [id number] Component Type Thawed PLASMA Issue Date/Time Unit Blood Type O Neg Unit Number [id number] Component Type Thawed PLASMA Issue Date/Time Unit Blood Type O Neg Unit Number [id number] Component Type Thawed PLASMA Issue Date/Time Specimen (Source) Anatomical Collection Method Collection Time Re ceived Time Location / / Volume Laterality 06/12/2013 8:00 PM AVIATION SUPPORT EQUIPMENT REPAIRER Historical Provider BLOOD BANK PRODUCT ORDERABLE S Performing Organization Address City/[facility] Code Phon e Number [facility] - [address] [phone] [employer] [facility] (ABNORMAL) Calcium, Ionized (06/12/2013 7:48 PM AVIATION SUPPORT EQUIPMENT REPAIRER) [facility] gist Method Time Signature Calcium, 5.61 (H) 4.65 - [facility] Ionized, B 5.30 LABORATORIES - MG/DL [employer] [facility] Specimen Anatomical Collection Method Collection Time Receive d Time (Source) Location / / Volume Laterality 06/12/2013 7:48 PM 3 7:48 AVIATION SUPPORT EQUIPMENT REPAIRER PM AVIATION SUPPORT EQUIPMENT REPAIRER Historical Provider LAB BLOOD NON ADD-ON Performing Organization Address City/[facility] Phon e Number [facility] - [address] (ABNORMAL) Fibrinogen (06/12/2013 7:48 PM AVIATION SUPPORT EQUIPMENT REPAIRER) [facility] gist Method Time Signature Fibrinogen, P 163 (L) 200 - 375 [facility] MG/DL LABORATORIES [facility] Specimen Anatomical Collection Method Collection Time Receive d Time (Source) Location / / Volume Laterality 06/12/2013 7:48 PM 3 7:48 AVIATION SUPPORT EQUIPMENT REPAIRER PM AVIATION SUPPORT EQUIPMENT REPAIRER Historical Provider LAB BLOOD ADD-ON Performing Organization Address City/State/ZIP Code Phon e Number [facility] - [address] [place], [place] [address] [employer] [facility] Potassium, Blood (06/12/2013 7:48 PM AVIATION SUPPORT EQUIPMENT REPAIRER) P athologist Signature Potassium, B 3.6 3.6 - 5.2 [facility] MMOL/L LABORATORIES [facility] Specimen Anatomical Collection Method Collection Time Receive d Time (Source) Location / / Volume Laterality 06/12/2013 7:48 PM 3 7:48 AVIATION SUPPORT EQUIPMENT REPAIRER PM AVIATION SUPPORT EQUIPMENT REPAIRER Historical Provider LAB BLOOD NON ADD-ON Performing Organization Address City/State/ZIP Code Phon e Number [facility] - [address] [place] [place] [address] [employer] [facility] (ABNORMAL) Platelet Count (06/12/2013 7:48 PM AVIATION SUPPORT EQUIPMENT REPAIRER) Analysis Performed At Patho logist Time Signature Platelet Count 85 (L) 150 - 450 [facility] X10(9)/L LABORATORIES [facility] Specimen Anatomical Collection Method Collection Time Receive d Time (Source) Location / / Volume Laterality 06/12/2013 7:48 PM 3 7:48 AVIATION SUPPORT EQUIPMENT REPAIRER PM AVIATION SUPPORT EQUIPMENT REPAIRER Historical Provider LAB BLOOD ADD-ON Performing Organization Address City/[facility]/ZIP Code Phon e Number [facility] - [address] [phone] [employer] [facility] (ABNORMAL) Thromboelastograph, Kaolin, Blood (06/12/2013 7:48 PM AVIATION SUPPORT EQUIPMENT REPAIRER) Patholo gist Method Time Signature R Time 10.4 (H) 4.0 - 9.0 [facility] MIN LABORATORIES [facility] K Time 1.6 1.0 - 1.8 [facility] MIN LABORATORIES [facility] Maximum 62.1 57.1 - 72.6 [facility] Amplitude MM LABORATORIES [facility] Ly30 0.0 0.0 - 4.8 % [facility] R + K 12.0 (H) 4.9 - 10.8 [facility] MIN LABORATORIES [facility] Angle 68.1 64.0 - 78.1 [facility] DEGREES LABORATORIES [facility] Specimen Anatomical Collection Method Collection Time Receive d Time (Source) Location / / Volume Laterality 06/12/2013 7:48 PM 3 7:48 AVIATION SUPPORT EQUIPMENT REPAIRER PM AVIATION SUPPORT EQUIPMENT REPAIRER Historical Provider LAB BLOOD NON ADD-ON Performing Organization Address City/[facility]/ZIP Code Phon e Number [facility] - [address] [place] [phone] [employer] [facility] Glucose, Whole Blood (06/12/2013 7:48 PM AVIATION SUPPORT EQUIPMENT REPAIRER) P athologist Signature Glucose, S 86 70 - 140 [facility] MG/DL LABORATORIES [facility] Specimen Anatomical Collection Method Collection Time Receive d Time (Source) Location / / Volume Laterality 06/12/2013 7:48 PM 3 7:48 AVIATION SUPPORT EQUIPMENT REPAIRER PM AVIATION SUPPORT EQUIPMENT REPAIRER Historical Provider LAB BLOOD TROPONIN Performing Organization Address City/[facility] Phon e Number [facility] - [address] [place] [phone] [employer] [facility] (ABNORMAL) Sodium (06/12/2013 7:48 PM AVIATION SUPPORT EQUIPMENT REPAIRER) athologist Signature Sodium, B 128 (L) 135 - 145 [facility] MMOL/L [facility] Specimen Anatomical Collection Method Collection Time Receive d Time (Source) Location / / Volume Laterality 06/12/2013 7:48 PM 3 7:48 AVIATION SUPPORT EQUIPMENT REPAIRER PM AVIATION SUPPORT EQUIPMENT REPAIRER Historical Provider LAB BLOOD ADD-ON Performing Organization Address City/[facility] Phon e Number [facility] - [address] [phone] [employer] [facility] (ABNORMAL) Blood Gas with Coox, Arterial (06/12/2013 7:48 PM AVIATION SUPPORT EQUIPMENT REPAIRER) Analysis Performed At Patho logist Time Signature pO2 227 (H) 80 - 100 [facility] MM HG [facility] pCO2 28 (L) 35 - 45 MM [facility] HG [facility] HCO3 18 (L) 22 - 26 [facility] MMOL/L [facility] Hb 7.6 (L) 13.5 - [facility] 17.5 G/DL [facility] O2Hb 98.2 (H) 94.0 - [facility] 98.0 % [facility] COHb 1.0 <3.0 % [facility] pH 7.42 7.35 - [facility] 7.45 PH [facility] Base Excess -7 (L) -2 - 2 [facility] MMOL/L [facility] MetHb <1.0 <1.6 % [facility] CtO2 11.1 (L) 21.0 - [facility] 23.0 VOL % [facility] Specimen Anatomical Collection Method Collection Time Receive d Time (Source) Location / / Volume Laterality 06/12/2013 7:48 PM 3 7:48 AVIATION SUPPORT EQUIPMENT REPAIRER PM AVIATION SUPPORT EQUIPMENT REPAIRER Historical Provider LAB BLOOD NON ADD-ON Performing Organization Address City/[facility]/ZIP Code Phon e Number [facility] - [address] [phone] [employer] [facility] (ABNORMAL) PT (Prothrombin Time) with INR (06/12/2013 7:48 PM AVIATION SUPPORT EQUIPMENT REPAIRER) [facility] Method Time Signature Prothrombin 24.2 (H) 9.5 - [facility] Time, P 13.8 SEC [facility] INR 2.2 0.8 - 1.2 [facility] Specimen Anatomical Collection Method Collection Time Receive d Time (Source) Location / / Volume Laterality 06/12/2013 7:48 PM 3 7:48 AVIATION SUPPORT EQUIPMENT REPAIRER PM AVIATION SUPPORT EQUIPMENT REPAIRER Historical Provider LAB BLOOD ADD-ON Performing Organization Address City/[facility]/ZIP Code Phon e Number [facility] - [address] [place] [phone] [employer] [facility] (ABNORMAL) APTT (Activated Partial Thromboplastin Time) (06/12/2013 7:48 PM AVIATION SUPPORT EQUIPMENT REPAIRER) P athologist Signature APTT, P 49 (H) 28 - 38 SEC [facility] Specimen Anatomical Collection Method Collection Time Receive d Time (Source) Location / / Volume Laterality 06/12/2013 7:48 PM 3 7:48 AVIATION SUPPORT EQUIPMENT REPAIRER PM AVIATION SUPPORT EQUIPMENT REPAIRER Historical Provider LAB BLOOD ADD-ON Performing Organization Address City/[facility]/ZIP [facility] Phon e Number [facility] - [address] [place] [phone] [employer] [facility] [employer] DX Chest AP or PA and Lateral 2 Views (06/12/2013 7:40 AM AVIATION SUPPORT EQUIPMENT REPAIRER) Anatomical Region Laterality Modality Chest N/A Radiographic Imaging Specimen (Source) Anatomical Collection Method Collection Time Re ceived Time Location / / Volume Laterality 06/12/2013 7:40 AM AVIATION SUPPORT EQUIPMENT REPAIRER Narrative 06/12/2013 7:43 AM AVIATION SUPPORT EQUIPMENT REPAIRER 12-Jun-2013 07:40:00 ??Exam: Chest-- 2 Views Indications: Liver Transplant ORIGINAL REPORT - 12-Jun-2013 07:43:00 Chest; 2 views: Elevation of the right hemidiaphragm. Mu ltiple stents in the right upper quadrant. Mild cardiomegaly. No edema. Some improvement in the atelectasis at the right lung base since yesterday. Electronically signed by: ?? Mayra Wells [id number] 12-Jun-20 13 07:43 Procedure Note Mayra Wells M.B., Ch.B. - 12-Jun-2013 07:40:00 Exam: Chest-- 2 Vie ws Indications: Liver Transplant ORIGINAL REPORT - 12-Jun-2013 07:43:00 Chest; 2 views: Elevation of the right hemidiaphragm. Mu ltiple stents in the right upper quadrant. Mild cardiomegaly. No edema. Some improvement in the atelectasis at the right lung base since yesterday. Electronically signed by: Mayra Wells [id number] 12-Jun-20 13 07:43 Juancarlos Castro M.D. IM DIAGNOSTIC IMAGING [facility] Microbiology Reports (06/12/2013 7:38 AM AVIATION SUPPORT EQUIPMENT REPAIRER) Specimen Anatomical Collection Method Collection Time Receive d Time (Source) Location / / Volume Laterality 06/12/2013 7:38 AM 3 7:38 AVIATION SUPPORT EQUIPMENT REPAIRER AM AVIATION SUPPORT EQUIPMENT REPAIRER Narrative [facility] - 06/13/2013 8:01 AM AVIATION SUPPORT EQUIPMENT REPAIRER 12-JUN-2013 URINE, MIDSTREAM, ?SoftOrd# [id number] ?(Ordered 12-JUN-2013; Collec onel 12-JUN-2013 07:38; Received 12-JUN-2013 10:23) ?[facility] ?BACTERIAL CULTURE, AEROBIC + GRIFFITH SC ? (Reported 13-JUN-2013 08:01) FINAL ?No Growth after 1 day of inc ubation. Procedure Note 10/01/2017 12-JUN-2013 URINE, MIDSTREAM, SoftOrd# [id number] (Ordered 12-JUN-2013; Collected 2012 07:38; Received 12-JUN-2013 10:23) [facility] BACTERIAL CULTURE, AEROBIC + SUSC (Rep orted 13-JUN-2013 08:01) FINAL No Growth after 1 day of incubation. Juancarlos Castro M.D. LAB MICROBIOLOGY - GENERAL O RDERABLES Performing Organization Address [facility] Phon e Number [facility] - [address] [phone] [employer] [facility] [facility] Gram Stain, Urine (06/12/2013 7:38 AM AVIATION SUPPORT EQUIPMENT REPAIRER) [facility] Method Time Signature Gram's Stain, Negative [facility] Screen, U [facility] Specimen Anatomical Collection Method Collection Time Receive d Time (Source) Location / / Volume Laterality 06/12/2013 7:38 AM 3 7:38 AVIATION SUPPORT EQUIPMENT REPAIRER AM AVIATION SUPPORT EQUIPMENT REPAIRER Juancarlos Castro M.D. LAB URINE ORDERABLES Performing Organization Address [facility] Phon e Number [facility] - [address] [phone] [employer] [facility] (ABNORMAL) Microscopic Manual (06/12/2013 7:38 AM AVIATION SUPPORT EQUIPMENT REPAIRER) [facility] Method Time Signature Microscopy Abnormal [facility] Blood <3 <3 /HPF [facility] WBC 1-3 1-3 [facility] (Males); LABORATORIES - 1-10 [facility] (Females) CAMPUS /HPF Casts, Hyaline Occas /LPF [facility] Granular Casts Occas (A) /LPF [facility] Renal 1-3 (A) /HPF [facility] Epithelial LABORATORIES - Cells [employer] [facility] Specimen Anatomical Collection Method Collection Time Receive d Time (Source) Location / / Volume Laterality 06/12/2013 7:38 AM 3 7:38 AVIATION SUPPORT EQUIPMENT REPAIRER AM AVIATION SUPPORT EQUIPMENT REPAIRER Juancarlos Castro M.D. LAB URINE ORDERABLES Performing Organization Address City/[facility]/ZIP Code Phon e Number [facility] - [address] [phone] [employer] [facility] (ABNORMAL) Urinalysis with Microscopic (06/12/2013 7:38 AM AVIATION SUPPORT EQUIPMENT REPAIRER) [facility] gist Method Time Signature Source Midstream [facility] Appearance Normal Normal [facility] pH, 24 HR, U 6.0 4.5 - 8.0 [facility] Protein/Osmola 0.34 (H) <0.12 RATIO [facility] lity [facility] Predicted 24 337 MG/24 H [facility] Hr Protein [facility] Predicted 107-1061 MG/24 H [facility] Range [facility] Glucose 6 0 - 15 MG/DL [facility] Protein, U 12 0 - 19 MG/DL [facility] Hemoglobin, QL Negative Negative [facility] Osmolality, 24 353 150 - 1150 [facility] HR, U MOSM/KG [facility] Specimen Anatomical Collection Method Collection Time Receive d Time (Source) Location / / Volume Laterality 06/12/2013 7:38 AM 3 7:38 AVIATION SUPPORT EQUIPMENT REPAIRER AM AVIATION SUPPORT EQUIPMENT REPAIRER Juancarlos Castro M.D. LAB URINE ORDERABLES Performing Organization Address City/[facility]/ZIP Code Phon e Number [facility] - [address] [phone] [employer] [facility] Microbiology Reports (06/12/2013 6:49 AM AVIATION SUPPORT EQUIPMENT REPAIRER) Specimen Anatomical Collection Method Collection Time Receive d Time (Source) Location / / Volume Laterality 06/12/2013 6:49 AM 3 6:49 AVIATION SUPPORT EQUIPMENT REPAIRER AM AVIATION SUPPORT EQUIPMENT REPAIRER Narrative [facility] - 06/17/2013 12:30 PM AVIATION SUPPORT EQUIPMENT REPAIRER 12-JUN-2013 BLOOD, right arm ? SoftOrd# [id number] ?(Ordered 12-JUN-2013; Collec onel 12-JUN-2013 06:49; Received 12-JUN-2013 07:34) ?[facility] ?BACTERIA/MARRY CULTURE, BLOOD ? (Reported 17-JUN-2013 12:30) FINAL ?No growth after 5 days of in cubation. Procedure Note 10/01/2017 12-JUN-2013 BLOOD, right arm SoftOrd# [id number] (Ordered 12-JUN-2013; Collected 2012 06:49; Received 12-JUN-2013 07:34) [facility] BACTERIA/MARRY CULTURE, BLOOD (Repor onel 17-JUN-2013 12:30) FINAL No growth after 5 days of incubation. Juancarlos Castro M.D. LAB MICROBIOLOGY - GENERAL O ERABLES Performing Organization Address City/State/ZIP Code Phon e Number [facility] - [address] [phone] [employer] [facility] Microbiology Reports (06/12/2013 6:45 AM AVIATION SUPPORT EQUIPMENT REPAIRER) Specimen Anatomical Collection Method Collection Time Receive d Time (Source) Location / / Volume Laterality 06/12/2013 6:45 AM 3 6:45 AVIATION SUPPORT EQUIPMENT REPAIRER AM AVIATION SUPPORT EQUIPMENT REPAIRER Narrative [facility] - [facility] - 06/17/2013 12:30 PM AVIATION SUPPORT EQUIPMENT REPAIRER 12-JUN-2013 BLOOD, left arm ?SoftOrd# [id number] ?(Ordered 12-JUN-2013; Collec onel 12-JUN-2013 06:45; Received 12-JUN-2013 07:33) [facility] ?BACTERIA/MARRY CULTURE, BLOOD ? (Reported 17-JUN-2013 12:30) FINAL ?No growth after 5 days of in cubation. Procedure Note 10/01/2017 12-JUN-2013 BLOOD, left arm SoftOrd# [id number] (Ordered 12-JUN-2013; Collected 2012 06:45; Received 12-JUN-2013 07:33) [facility] BACTERIA/MARRY CULTURE, BLOOD (Repor onel 17-JUN-2013 12:30) FINAL No growth after 5 days of incubation. Juancarlos Castro M.D. LAB MICROBIOLOGY - GENERAL O RDERABLES Performing Organization Address City/[facility]/ZIP Code Phon e Number [facility] - [address] Ammonia Level, Plasma (06/12/2013 6:45 AM AVIATION SUPPORT EQUIPMENT REPAIRER) P athologist Signature Ammonia, B 36 <50 MCG [facility] N/DL LABORATORIES - [employer] [facility] Specimen Anatomical Collection Method Collection Time Receive d Time (Source) Location / / Volume Laterality 06/12/2013 6:45 AM 3 6:45 AVIATION SUPPORT EQUIPMENT REPAIRER AM AVIATION SUPPORT EQUIPMENT REPAIRER Juancarlos Castro M.D. LAB BLOOD NON ADD-ON Performing Organization Address City/[facility] Code Phon e Number [facility] - [address] (ABNORMAL) Cytomegalovirus Ab, IgM and IgG (06/12/2013 6:45 AM AVIATION SUPPORT EQUIPMENT REPAIRER) [facility] Method Time Signature Cytomegalovirus Positive Negative [facility] Ab, IgG, S (A) [facility] Cytomegalovirus Negative Negative [facility] Ab, IgM, S [facility] Specimen Anatomical Collection Method Collection Time Receive d Time (Source) Location / / Volume Laterality 06/12/2013 6:45 AM 3 6:45 AVIATION SUPPORT EQUIPMENT REPAIRER AM AVIATION SUPPORT EQUIPMENT REPAIRER Juancarlos Castro M.D. LAB MICROBIOLOGY - BLOOD ORD ERABLES Performing Organization Address City/[facility]/ZIP [facility] Phon e Number [facility] - [address] [phone] [employer] [facility] (ABNORMAL) Fibrinogen (06/12/2013 6:44 AM AVIATION SUPPORT EQUIPMENT REPAIRER) [facility] Method Time Signature Fibrinogen, P 195 (L) 200 - 375 [facility] MG/DL LABORATORIES - [employer] [facility] Specimen Anatomical Collection Method Collection Time Receive d Time (Source) Location / / Volume Laterality 06/12/2013 6:44 AM 3 6:44 AVIATION SUPPORT EQUIPMENT REPAIRER AM AVIATION SUPPORT EQUIPMENT REPAIRER Juancarlos Castro M.D. LAB BLOOD ADD-ON Performing Organization Address City/State/[facility] Code Phon e Number [facility] - [address] [place], [place] [address] [employer] [facility] (ABNORMAL) CBC with Differential (06/12/2013 6:44 AM AVIATION SUPPORT EQUIPMENT REPAIRER) [facility] Method Time Signature Erythrocytes 2.43 (L) 4.32 - [facility] 5.72 LABORATORIES - X10(12)/L [employer] [facility] MCV 88.9 81.2 - [facility] 95.1 [place] LABORATORIES - [employer] [facility] RBC Distrib 19.4 (H) 11.8 - [facility] Width 15.6 % LABORATORIES - [employer] [facility] Platelet Count 92 (L) 150 - 450 [facility] X10(9)/L LABORATORIES - [employer] [facility] Leukocytes 3.3 (L) 3.5 - [facility] 10.5 LABORATORIES - X10(9)/L [employer] [facility] Neutrophils 1.71 1.70 - [facility] 7.00 LABORATORIES - X10(9)/L [employer] Eosinophils 0.18 0.05 - [facility] 0.50 LABORATORIES - X10(9)/L [employer] Basophils 0.03 0.00 - [facility] 0.30 LABORATORIES - X10(9)/L [employer] [facility] Hemoglobin 8.0 (L) 13.5 - [facility] 17.5 G/DL LABORATORIES - [employer] [facility] Hematocrit 21.6 (L) 38.8 - [facility] 50.0 % LABORATORIES - [employer] [facility] Lymphocytes 0.81 (L) 0.90 - [facility] 2.90 LABORATORIES - X10(9)/L [employer] Monocytes 0.57 0.30 - [facility] 0.90 LABORATORIES - X10(9)/L [employer] [facility] Specimen Anatomical Collection Method Collection Time Receive d Time (Source) Location / / Volume Laterality 06/12/2013 6:44 AM 3 6:44 AVIATION SUPPORT EQUIPMENT REPAIRER AM AVIATION SUPPORT EQUIPMENT REPAIRER Juancarlos Castro M.D. LAB BLOOD ADD-ON Performing Organization Address City/State/ZIP Code Phon e Number [facility]IES - [address] [place], [place] [address] [employer] [facility] Glucose, Fasting (06/12/2013 6:44 AM AVIATION SUPPORT EQUIPMENT REPAIRER) P athologist Signature Glucose, P 90 70 - 100 [facility] MG/DL [facility] Specimen Anatomical Collection Method Collection Time Receive d Time (Source) Location / / Volume Laterality 06/12/2013 6:44 AM 3 6:44 AVIATION SUPPORT EQUIPMENT REPAIRER AM AVIATION SUPPORT EQUIPMENT REPAIRER Juancarlos Castro M.D. LAB BLOOD NON ADD-ON Performing Organization Address City/[facility] Code Phon e Number [facility]IES - [address] [place], [place] [address] [employer] [facility] Triglycerides (06/12/2013 6:44 AM AVIATION SUPPORT EQUIPMENT REPAIRER) Patholo gist Method Time Signature Triglycerides 123 SeeComment [facility] MG/DL [facility] Comment: Reference Range: ? NCEP guidelines ? (ages 18y and up) ? Normal: <150 ? Borderline high: 150-199 ? High: 200-499 ? Very high: > or =500 ? Specimen Anatomical Collection Method Collection Time Receive d Time (Source) Location / / Volume Laterality 06/12/2013 6:44 AM 3 6:44 AVIATION SUPPORT EQUIPMENT REPAIRER AM AVIATION SUPPORT EQUIPMENT REPAIRER Juancarlos Castro M.D. LAB BLOOD ADD-ON Performing Organization Address City/State/ZIP Code Phon e Number [facility]IES - [address] [place], [place] [address] [employer] [facility] HLA Class II SAB Antibody Screen (06/12/2013 6:44 AM AVIATION SUPPORT EQUIPMENT REPAIRER) [facility] gist Method Time Signature Class II SAB Positive Not Applicable [facility] Overall LABORATORIES - Result [employer] [facility] Class II SAB 21 [facility] cPRA LABORATORIES - [employer] [facility] Comment: This PRA is a [facility] Tiss ue Typing ? Laboratory calculated PRA. PRA is based on the antigen ? frequency of the Tissue Typing patient a nd donor ? population. ??PRA reflects all antibodie s with a normalized ? value (MFI) above 300. ? SAB DQB1 Specificity NONE [facility] SAB DPB1 Specificity . [facility] Comment: 4[727], 3[461], 4[365], 23[320] ? Format: Serologic equivalent/abbreviated specificity ? [Normalized Value] shown in decreasing o rder. Note: A ? serologic equivalent/abbreviated specifi city displayed ? multiple times could indicate different alleles. ? Method: Luminex Flow Cytometry ? SAB [id number] Specificity . [facility] [place] [employer] [facility] Comment: 4[472], 4[375] ? Format: Serologic equivalent/abbreviated specificity ? [Normalized Value] shown in decreasing o rder. Note: A ? serologic equivalent/abbreviated specifi city displayed ? multiple times could indicate different alleles. ? SAB [id number] Specificity NONE [facility] Specimen Anatomical Collection Method Collection Time Receive d Time (Source) Location / / Volume Laterality 06/12/2013 6:44 AM 3 6:44 AVIATION SUPPORT EQUIPMENT REPAIRER AM AVIATION SUPPORT EQUIPMENT REPAIRER Juancarlos Castro M.D. LAB HLA ORDERABLES Performing Organization Address City/State/ZIP [facility] Phon e Number [facility] - [address] [place], [place] [address] [place] [employer] [facility] Hepatitis B Surface Antigen (06/12/2013 6:44 AM AVIATION SUPPORT EQUIPMENT REPAIRER) [facility] gist Method Time Signature HBs Antigen, Negative Negative [facility] Comment: Evidence of icterus was noted in the spe cimen. Icterus could ? interfere with test results. Interpret r esults with caution. ? Specimen Anatomical Collection Method Collection Time Receive d Time (Source) Location / / Volume Laterality 06/12/2013 6:44 AM 3 6:44 AVIATION SUPPORT EQUIPMENT REPAIRER AM AVIATION SUPPORT EQUIPMENT REPAIRER Juancarlos Castro M.D. LAB MICROBIOLOGY - BLOOD ORD ERABLES Performing Organization Address [facility]/ZIP Code Phon e Number [facility] - [address] [place], [place] [address] [place] [employer] [facility] (ABNORMAL) Hepatitis A Total Ab, S (06/12/2013 6:44 AM AVIATION SUPPORT EQUIPMENT REPAIRER) Patholo gist Method Time Signature Hepatitis A Positive (A) Negative [facility] Total Ab, S LABORATORIES - [facility] [place] [employer] [facility] Comment: Evidence of icterus was noted in the spe cimen. Icterus could ? interfere with test results. Interpret r esults with caution. ? REVISED REPORT, Previously reported as: Positive (Reported 06/12/2013 15:57) ? Specimen Anatomical Collection Method Collection Time Receive d Time (Source) Location / / Volume Laterality 06/12/2013 6:44 AM 3 6:44 AVIATION SUPPORT EQUIPMENT REPAIRER AM AVIATION SUPPORT EQUIPMENT REPAIRER Juancarlos Castro M.D. LAB MICROBIOLOGY - BLOOD ORD ERABLES Performing Organization Address City/State/ZIP Code Phon e Number [facility] - [address] [place], [place] [address] [place] [employer] [facility] (ABNORMAL) Albumin (06/12/2013 6:44 AM AVIATION SUPPORT EQUIPMENT REPAIRER) P athologist Signature Albumin, S 3.1 (L) 3.5 - 5.0 [facility] G/DL LABORATORIES [facility] Specimen Anatomical Collection Method Collection Time Receive d Time (Source) Location / / Volume Laterality 06/12/2013 6:44 AM 3 6:44 AVIATION SUPPORT EQUIPMENT REPAIRER AM AVIATION SUPPORT EQUIPMENT REPAIRER Juancarlos Castro M.D. LAB BLOOD ADD-ON Performing Organization Address City/State/ZIP Code Phon e Number [facility] - [address] [place], [place] [address] [place] [employer] [facility] Hepatitis Be Ag and Ab (06/12/2013 6:44 AM AVIATION SUPPORT EQUIPMENT REPAIRER) [facility] Signature Hepatitis Be Negative Negative [facility] Ag, S [facility] Comment: Evidence of icterus was noted in the spe cimen. Icterus could ? interfere with test results. Interpret r esults with caution. ? HBe Antibody, S Negative Negative [facility] LA [facility] Comment: Evidence of icterus was noted in the spe cimen. Icterus could ? interfere with test results. Interpret r esults with caution. ? Specimen Anatomical Collection Method Collection Time Receive d Time (Source) Location / / Volume Laterality 06/12/2013 6:44 AM 3 6:44 AVIATION SUPPORT EQUIPMENT REPAIRER AM AVIATION SUPPORT EQUIPMENT REPAIRER Juancarlos Castro M.D. LAB MICROBIOLOGY - BLOOD ORD ERABLES Performing Organization Address [facility] Code Phon e Number [facility] - [address] [phone] [place] [employer] [facility] (ABNORMAL) Bilirubin, Direct (06/12/2013 6:44 AM AVIATION SUPPORT EQUIPMENT REPAIRER) [facility] gist Method Time Signature Bilirubin, 24.7 (H) 0.0 - 0.3 [facility] Direct, S MG/DL [facility]ATORIES [facility] Specimen Anatomical Collection Method Collection Time Receive d Time (Source) Location / / Volume Laterality 06/12/2013 6:44 AM 3 6:44 AVIATION SUPPORT EQUIPMENT REPAIRER AM AVIATION SUPPORT EQUIPMENT REPAIRER Juancarlos Castro M.D. LAB BLOOD ADD-ON Performing Organization Address [facility] Phon e Number [facility] - [address] [phone] [place] [employer] [facility] Hepatitis B Core Total Ab (06/12/2013 6:44 AM AVIATION SUPPORT EQUIPMENT REPAIRER) [facility] Method Time Signature HBc Total Ab, Negative Negative [facility] S LABORATORIES [facility] Comment: Evidence of icterus was noted in the spe cimen. Icterus could ? interfere with test results. Interpret r esults with caution. ? Specimen Anatomical Collection Method Collection Time Receive d Time (Source) Location / / Volume Laterality 06/12/2013 6:44 AM 3 6:44 AVIATION SUPPORT EQUIPMENT REPAIRER AM AVIATION SUPPORT EQUIPMENT REPAIRER Juancarlos Castro M.D. LAB MICROBIOLOGY - BLOOD ORD ERABLES Performing Organization Address City/State/ZIP Code Phon e Number [facility] - [address] [place], [place] [address] [place] [facility] [employer] [facility] HLA Class I SAB Antibody Screen (06/12/2013 6:44 AM AVIATION SUPPORT EQUIPMENT REPAIRER) [facility] gist Method Time Signature Class I SAB Positive Not Applicable [facility] Overall LABORATORIES - Result [facility] [employer] Class I SAB 8 [facility] cPRA LABORATORIES - [place] [employer] [facility] Comment: This PRA is a [facility] Tiss ue Typing ? Laboratory calculated PRA. PRA is based on the antigen ? frequency of the Tissue Typing patient a nd donor ? population. ??PRA reflects all antibodie s with a normalized ? value (MFI) above 300. ? SAB C Specificity NONE [facility] Comment: Method: Luminex Flow Cytometry SAB A Specificity . [facility] Comment: 29[454], 33[364], 29[341] ? Format: Serologic equivalent/abbreviated specificity ? [Normalized Value] shown in decreasing o rder. Note: A ? serologic equivalent/abbreviated specifi city displayed ? multiple times could indicate different alleles. ? SAB B Specificity . [facility] Comment: 75[1168], 67[450], 63[325] ? Format: Serologic equivalent/abbreviated specificity ? [Normalized Value] shown in decreasing o rder. Note: A ? serologic equivalent/abbreviated specifi city displayed ? multiple times could indicate different alleles. ? Specimen Anatomical Collection Method Collection Time Receive d Time (Source) Location / / Volume Laterality 06/12/2013 6:44 AM 3 6:44 AVIATION SUPPORT EQUIPMENT REPAIRER AM AVIATION SUPPORT EQUIPMENT REPAIRER Juancarlos Castro M.D. LAB HLA ORDERABLES Performing Organization Address [facility] Phon e Number [facility] - [address] [phone] [place] [employer] [facility] (ABNORMAL) PT (Prothrombin Time) with INR (06/12/2013 6:44 AM AVIATION SUPPORT EQUIPMENT REPAIRER) [facility] Method Time Signature Prothrombin 25.6 (H) 9.5 - [facility] Time, P 13.8 SEC LABORATORIES - [facility] [place] [employer] [facility] INR 2.3 0.8 - 1.2 [facility] - [place] [employer] [facility] Specimen Anatomical Collection Method Collection Time Receive d Time (Source) Location / / Volume Laterality 06/12/2013 6:44 AM 3 6:44 AVIATION SUPPORT EQUIPMENT REPAIRER AM AVIATION SUPPORT EQUIPMENT REPAIRER Juancarlos Castro M.D. LAB BLOOD ADD-ON Performing Organization Address City/[facility] Code Phon e Number [facility] - [address] [phone] [place] [employer] [facility] (ABNORMAL) Electrolyte (Chem 4) Panel (06/12/2013 6:44 AM AVIATION SUPPORT EQUIPMENT REPAIRER) [facility] Method Time Signature Sodium, S 131 (L) 135 - 145 [facility] MMOL/L [facility] Potassium, S 3.8 3.6 - 5.2 [facility] MMOL/L [facility] Glucose, S 90 70 - 140 [facility] MG/DL [facility] - [place] [employer] [facility] HX Bicarbonate, 19 (L) 22 - 29 [facility] P/S MMOL/L [facility] Anion Gap 12 7 - 15 [facility] Creatinine 2.3 (H) 0.8 - 1.3 [facility] MG/DL [facility] Chloride, S 100 100 - 108 [facility] MMOL/L [facility] BUN (Blood Urea 32 (H) 8 - 24 [facility] Nitrogen), S MG/DL [facility] - [employer] [place] [employer] [facility] eGFR 29 (L) >60 [facility] Non-Black/Afric ML/MIN/BS LABORATORIES - an [place]gasque A [employer] [place] [employer] [facility] eGFR-Black/Afri 36 (L) >60 [facility] can [place]onegasque ML/MIN/BS LABORATORIES - A [employer] [place] [employer] [facility] Specimen Anatomical Collection Method Collection Time Receive d Time (Source) Location / / Volume Laterality 06/12/2013 6:44 AM 3 6:44 AVIATION SUPPORT EQUIPMENT REPAIRER AM AVIATION SUPPORT EQUIPMENT REPAIRER Juancarlos Castro M.D. LAB BLOOD ADD-ON Performing Organization Address City/State/ZIP Code Phon e Number [facility] - [address] [phone] [place] [employer] [facility] (ABNORMAL) APTT (Activated Partial Thromboplastin Time) (06/12/2013 6:44 AM AVIATION SUPPORT EQUIPMENT REPAIRER) P athologist Signature APTT, P 45 (H) 28 - 38 [facility] Specimen Anatomical Collection Method Collection Time Receive d Time (Source) Location / / Volume Laterality 06/12/2013 6:44 AM 3 6:44 AVIATION SUPPORT EQUIPMENT REPAIRER AM AVIATION SUPPORT EQUIPMENT REPAIRER Juancarlos Castro M.D. LAB BLOOD ADD-ON Performing Organization Address City/[facility]/ZIP Code Phon e Number [facility] - [address] [phone] [place] [employer] [facility] (ABNORMAL) Protein, Total (06/12/2013 6:44 AM AVIATION SUPPORT EQUIPMENT REPAIRER) Patholo gist Method Time Signature Total Protein, 4.4 (L) 6.3 - 7.9 [facility] S G/DL [facility] Specimen Anatomical Collection Method Collection Time Receive d Time (Source) Location / / Volume Laterality 06/12/2013 6:44 AM 3 6:44 AVIATION SUPPORT EQUIPMENT REPAIRER AM AVIATION SUPPORT EQUIPMENT REPAIRER Juancarlos Castro M.D. LAB BLOOD ADD-ON Performing Organization Address City/[facility]/ZIP Code Phon e Number [facility] - [address] [phone] [place] [employer] [facility] S-TSH (Thyroid-Stimulating Hormone - Sensitive) (06/12/2013 6:44 AM AVIATION SUPPORT EQUIPMENT REPAIRER) P athologist Signature TSH, Sensitive 2.9 0.3 - 5.0 [facility] MIU/L [facility] Specimen Anatomical Collection Method Collection Time Receive d Time (Source) Location / / Volume Laterality 06/12/2013 6:44 AM 3 6:44 AVIATION SUPPORT EQUIPMENT REPAIRER AM AVIATION SUPPORT EQUIPMENT REPAIRER Juancarlos Castro M.D. LAB BLOOD ADD-ON Performing Organization Address City/State/ZIP Code Phon e Number [facility] - [address] [place] [phone] [place] [employer] [facility] Phosphorus Inorganic (06/12/2013 6:44 AM AVIATION SUPPORT EQUIPMENT REPAIRER) Analysis Performed At Patho logist Time Signature Phosphorus 2.7 2.5 - 4.5 [facility] (Inorganic), S MG/DL LABORATORIES - [facility] [place] [employer] [facility] Specimen Anatomical Collection Method Collection Time Receive d Time (Source) Location / / Volume Laterality 06/12/2013 6:44 AM 3 6:44 AVIATION SUPPORT EQUIPMENT REPAIRER AM AVIATION SUPPORT EQUIPMENT REPAIRER Juancarlos Castro M.D. LAB BLOOD ADD-ON Performing Organization Address City/[facility]/ZIP Code Phon e Number [facility] - [address] (ABNORMAL) ALT (Alanine Aminotransferase) (06/12/2013 6:44 AM AVIATION SUPPORT EQUIPMENT REPAIRER) [facility] gist Method Time Signature Alanine 81 (H) 7 - 55 [facility] Aminotransferase U/L LABORATORIES - (ALT), S [facility] [employer] [facility] Specimen Anatomical Collection Method Collection Time Receive d Time (Source) Location / / Volume Laterality 06/12/2013 6:44 AM 3 6:44 AVIATION SUPPORT EQUIPMENT REPAIRER AM AVIATION SUPPORT EQUIPMENT REPAIRER Juancarlos Castro M.D. LAB BLOOD ADD-ON Performing Organization Address City/State/ZIP Code Phon e Number [facility] - [address] (ABNORMAL) Bilirubin, Total (06/12/2013 6:44 AM AVIATION SUPPORT EQUIPMENT REPAIRER) [facility] gist Method Time Signature Bilirubin, 30.1 (H) 0.1 - 1.0 [facility] Total, S MG/DL LABORATORIES - [facility] [place] [employer] [facility] Specimen Anatomical Collection Method Collection Time Receive d Time (Source) Location / / Volume Laterality 06/12/2013 6:44 AM 3 6:44 AVIATION SUPPORT EQUIPMENT REPAIRER AM AVIATION SUPPORT EQUIPMENT REPAIRER Juancarlos Castro M.D. LAB BLOOD ADD-ON Performing Organization Address City/[facility]/ZIP Code Phon e Number [facility] - [address] [place] [phone] [place] [employer] [facility] HCV Ab w/Reflex to HCV PCR, S (06/12/2013 6:44 AM AVIATION SUPPORT EQUIPMENT REPAIRER) P athologist Signature HCV Ab, S Negative Negative [facility] - [facility] [place] [employer] [facility] Comment: Crczne-sb-ebsyur ratio is <1.00. ? Evidence of icterus was noted in the spe cimen. Icterus could ? interfere with test results. Interpret r esults with caution. ? Specimen Anatomical Collection Method Collection Time Receive d Time (Source) Location / / Volume Laterality 06/12/2013 6:44 AM 3 6:44 AVIATION SUPPORT EQUIPMENT REPAIRER AM AVIATION SUPPORT EQUIPMENT REPAIRER Juancarlos Castro M.D. LAB MICROBIOLOGY - BLOOD ORD ERABLES Performing Organization Address City/State/ZIP Code Phon e Number [facility] - [address] [place], [place] [address] [place] [employer] [facility] (ABNORMAL) Calcium, Total (06/12/2013 6:44 AM AVIATION SUPPORT EQUIPMENT REPAIRER) Patholo gist Method Time Signature Calcium, 10.6 (H) 8.9 - [facility] Total, S 10.1 LABORATORIES - MG/DL [facility] [employer] Specimen Anatomical Collection Method Collection Time Receive d Time (Source) Location / / Volume Laterality 06/12/2013 6:44 AM 3 6:44 AVIATION SUPPORT EQUIPMENT REPAIRER AM AVIATION SUPPORT EQUIPMENT REPAIRER Juancarlos Castro M.D. LAB BLOOD ADD-ON Performing Organization Address City/State/ZIP Code Phon e Number [facility] - [address] [place], [place] [address] [facility] [place] [facility] [employer] Hepatitis B Core IgM Ab (06/12/2013 6:44 AM AVIATION SUPPORT EQUIPMENT REPAIRER) Patholo gist Method Time Signature HBc IgM Ab, S Negative Negative [facility] Comment: Evidence of icterus was noted in the spe cimen. Icterus could ? interfere with test results. Interpret r esults with caution. ? REVISED REPORT, Previously reported as: Negative (Reported 06/12/2013 15:44) ? Specimen Anatomical Collection Method Collection Time Receive d Time (Source) Location / / Volume Laterality 06/12/2013 6:44 AM 3 6:44 AVIATION SUPPORT EQUIPMENT REPAIRER AM AVIATION SUPPORT EQUIPMENT REPAIRER Juancarlos Castro M.D. LAB MICROBIOLOGY - BLOOD ORD ERABLES Performing Organization Address City/State/ZIP Code Phon e Number [facility] - [address] [place], [place] [address] [facility] [place] [facility] [employer] [facility] Alkaline Phosphatase (06/12/2013 6:44 AM AVIATION SUPPORT EQUIPMENT REPAIRER) P athologist Signature Alkaline 105 45 - 115 [facility] Phosphatase, S U/L LABORATORIES [facility] Specimen Anatomical Collection Method Collection Time Receive d Time (Source) Location / / Volume Laterality 06/12/2013 6:44 AM 3 6:44 AVIATION SUPPORT EQUIPMENT REPAIRER AM AVIATION SUPPORT EQUIPMENT REPAIRER Juancarlos Castro M.D. LAB BLOOD ADD-ON Performing Organization Address City/[facility]/ZIP Code Phon e Number [facility] - [address] [place], [place] [address] [facility] [place] [employer] [facility] (ABNORMAL) AST (Aspartate Aminotransferase) (06/12/2013 6:44 AM AVIATION SUPPORT EQUIPMENT REPAIRER) [facility] Method Time Signature AST, Total, S 186 (H) 8 - 48 U/L [facility] Specimen Anatomical Collection Method Collection Time Receive d Time (Source) Location / / Volume Laterality 06/12/2013 6:44 AM 3 6:44 AVIATION SUPPORT EQUIPMENT REPAIRER AM AVIATION SUPPORT EQUIPMENT REPAIRER Juancarlos Castro M.D. LAB BLOOD ADD-ON Performing Organization Address City/State/ZIP Code Phon e Number [facility] - [address] [place], [place] [address] [facility] [place] [employer] [facility] Cholesterol, Total (06/12/2013 6:44 AM AVIATION SUPPORT EQUIPMENT REPAIRER) [facility] Method Time Signature Cholesterol, 42 SeeComment [facility] Total MG/DL LABORATORIES - [facility] [employer] Comment: Reference Range: ? NCEP guidelines ? (ages 18y and up) ? Desirable: <200 ? Borderline high: 200-239 ? High: > or =240 ? Specimen Anatomical Collection Method Collection Time Receive d Time (Source) Location / / Volume Laterality 06/12/2013 6:44 AM 3 6:44 AVIATION SUPPORT EQUIPMENT REPAIRER AM AVIATION SUPPORT EQUIPMENT REPAIRER Juancarlos Castro M.D. LAB BLOOD ADD-ON Performing Organization Address City/State/ZIP Code Phon e Number [facility] - [address] [place], [place] [address] [facility] [employer] [facility] Prepare Red Blood Cells (06/12/2013 6:28 AM AVIATION SUPPORT EQUIPMENT REPAIRER) Analysis Performed At Patho logist Time Signature HXRBC # UNITS 6 [facility] TRANSFUSED [facility] HXRBC UNIT INFO RBC [facility] Comment: Unit Blood Type O Pos Unit Number [id number] Component Type Red Blood Cells - -1 Le ukoreduced Issue Date/Time Unit Blood Type O Pos Unit Number [id number] Component Type Red Blood Cells - -1 Le ukoreduced Issue Date/Time Unit Blood Type O Pos Unit Number [id number] Component Type Red Blood Cells - -1 Le ukoreduced Issue Date/Time Unit Blood Type O Pos Unit Number [id number] Component Type Red Blood Cells - -1 Le ukoreduced Issue Date/Time Unit Blood Type O Pos Unit Number [id number] Component Type Red Blood Cells - -1 Le ukoreduced Issue Date/Time [id number] Unit Blood Type O Pos Unit Number [id number] Component Type Red Blood Cells - -1 Le ukoreduced Issue Date/Time [id number] Specimen (Source) Anatomical Collection Method Collection Time Re ceived Time Location / / Volume Laterality 06/12/2013 6:28 AM AVIATION SUPPORT EQUIPMENT REPAIRER Historical Provider BLOOD BANK PRODUCT ORDERABLE S Performing Organization Address City/[facility] Code Phon e Number [facility] - [address] (ABNORMAL) PT (Prothrombin Time) with INR (06/12/2013 5:34 AM AVIATION SUPPORT EQUIPMENT REPAIRER) Patholo gist Method Time Signature Prothrombin 25.9 (H) 9.5 - [facility] Time, P 13.8 SEC [facility] INR 2.4 0.8 - 1.2 [facility] Specimen Anatomical Collection Method Collection Time Receive d Time (Source) Location / / Volume Laterality 06/12/2013 5:34 AM 3 5:34 AVIATION SUPPORT EQUIPMENT REPAIRER AM AVIATION SUPPORT EQUIPMENT REPAIRER Juancarlos Castro M.D. LAB BLOOD ADD-ON Performing Organization Address City/[facility] Phon e Number [facility] - [address] (ABNORMAL) CBC with Differential - No Alerts (06/12/2013 5:34 AM AVIATION SUPPORT EQUIPMENT REPAIRER) [facility] Method Time Signature Erythrocytes 2.42 (L) 4.32 - [facility] 5.72 LABORATORIES - X10(12)/L [facility] MCV 88.8 81.2 - [facility] 95.1 [place] LABORATORIES - [facility] [employer] [facility] RBC Distrib 19.7 (H) 11.8 - [facility] Width 15.6 % LABORATORIES - [facility] [employer] [facility] Platelet Count 83 (L) 150 - 450 [facility] X10(9)/L LABORATORIES - [employer] [facility] Lymphocytes 0.83 (L) 0.90 - [facility] 2.90 LABORATORIES - X10(9)/L [facility] [employer] Monocytes 0.55 0.30 - [facility] 0.90 LABORATORIES - X10(9)/L [facility] Hemoglobin 7.9 (L) 13.5 - [facility] 17.5 G/DL LABORATORIES - [facility] [employer] [facility] Hematocrit 21.5 (L) 38.8 - [facility] 50.0 % LABORATORIES - [employer] [facility] [employer] [facility] Leukocytes 3.4 (L) 3.5 - [facility] 10.5 LABORATORIES - X10(9)/L [facility] [employer] Neutrophils 1.78 1.70 - [facility] 7.00 LABORATORIES - X10(9)/L [facility] [employer] Eosinophils 0.19 0.05 - [facility] 0.50 LABORATORIES - X10(9)/L [facility] [employer] Basophils 0.01 0.00 - [facility] 0.30 LABORATORIES - X10(9)/L [facility] [employer] [facility] Specimen Anatomical Collection Method Collection Time Receive d Time (Source) Location / / Volume Laterality 06/12/2013 5:34 AM 3 5:34 AVIATION SUPPORT EQUIPMENT REPAIRER AM AVIATION SUPPORT EQUIPMENT REPAIRER Juancarlos Castro M.D. LAB BLOOD NON ADD-ON Performing Organization Address City/State/ZIP Code Phon e Number [facility] - [address] [place], [place] [address] [employer] [facility] (ABNORMAL) Calcium, Total (06/12/2013 5:34 AM AVIATION SUPPORT EQUIPMENT REPAIRER) [facility] Method Time Signature Calcium, 10.4 (H) 8.9 - [facility] Total, S 10.1 LABORATORIES - MG/DL [employer] [facility] Specimen Anatomical Collection Method Collection Time Receive d Time (Source) Location / / Volume Laterality 06/12/2013 5:34 AM 12/21/201 3 5:34 AVIATION SUPPORT EQUIPMENT REPAIRER AM AVIATION SUPPORT EQUIPMENT REPAIRER Juancarlos Castro M.D. LAB BLOOD ADD-ON Performing Organization Address City/[facility] Code Phon e Number [facility] - [address] [phone] [employer] [facility] (ABNORMAL) Bilirubin (06/12/2013 5:34 AM AVIATION SUPPORT EQUIPMENT REPAIRER) [facility] Method Time Signature Bilirubin, 29.1 (H) 0.1 - 1.0 [facility] Total, S MG/DL LABORATORIES - [employer] Bilirubin, 24.0 (H) 0.0 - 0.3 [facility] Direct, S MG/DL LABORATORIES - [employer] [facility] Specimen Anatomical Collection Method Collection Time Receive d Time (Source) Location / / Volume Laterality 06/12/2013 5:34 AM 3 5:34 AVIATION SUPPORT EQUIPMENT REPAIRER AM AVIATION SUPPORT EQUIPMENT REPAIRER Juancarlos Castro M.D. LAB BLOOD ADD-ON Performing Organization Address City/[facility] Code Phon e Number [facility] - [address] [phone] [employer] [facility] (ABNORMAL) Electrolyte (Chem 4) Panel (06/12/2013 5:34 AM AVIATION SUPPORT EQUIPMENT REPAIRER) [facility] Method Time Signature Sodium, S 130 (L) 135 - 145 [facility] MMOL/L LABORATORIES - [employer] Potassium, S 3.8 3.6 - 5.2 [facility] MMOL/L LABORATORIES - [employer] [facility] Glucose, S 96 70 - 140 [facility] MG/DL LABORATORIES - [employer] [facility] Creatinine 2.2 (H) 0.8 - 1.3 [facility] MG/DL LABORATORIES - [facility] [employer] [facility] Chloride, S 100 100 - 108 [facility] MMOL/L LABORATORIES - [employer] [facility] HX Bicarbonate, 18 (L) 22 - 29 [facility] P/S MMOL/L LABORATORIES [facility] BUN (Blood Urea 32 (H) 8 - 24 [facility] Nitrogen), S MG/DL LABORATORIES - [employer] [facility] Anion Gap 12 7 - 15 [facility] eGFR 31 (L) >60 [facility] Non-Black/Afric ML/MIN/BS LABORATORIES - [place]onegas[place] [facility] eGFR-Black/Afri 37 (L) >60 [facility] can [place]gasque ML/MIN/BS LABORATORIES - [facility] Specimen Anatomical Collection Method Collection Time Receive d Time (Source) Location / / Volume Laterality 06/12/2013 5:34 AM 3 5:34 AVIATION SUPPORT EQUIPMENT REPAIRER AM AVIATION SUPPORT EQUIPMENT REPAIRER Juancarlos Castro M.D. LAB BLOOD ADD-ON Performing Organization Address City/State/ZIP Code Phon e Number [facility] - [address] [phone] [employer] [facility] (ABNORMAL) Calcium, Ionized (06/11/2013 2:37 PM AVIATION SUPPORT EQUIPMENT REPAIRER) [facility] gist Method Time Signature Calcium, 5.85 (H) 4.80 - [facility] Ionized, S 5.70 LABORATORIES - MG/DL [facility] [employer] [facility] pH 7.42 7.32 - [facility] 7.43 LABORATORIES - [employer] Specimen Anatomical Collection Method Collection Time Receive d Time (Source) Location / / Volume Laterality 06/11/2013 2:37 PM 3 2:37 AVIATION SUPPORT EQUIPMENT REPAIRER PM AVIATION SUPPORT EQUIPMENT REPAIRER Juancarlos Castro M.D. LAB BLOOD NON ADD-ON Performing Organization Address City/[facility]/ZIP Code Phon e Number [facility] - [address] [phone] [employer] [facility] (ABNORMAL) PTH (Parathyroid Hormone) (06/11/2013 2:37 PM AVIATION SUPPORT EQUIPMENT REPAIRER) [facility] gist Method Time Signature Parathyroid 10 (L) 15 - 65 [facility] Hormone (PTH), S PG/ML LABORATORIES - [employer] [facility] Specimen Anatomical Collection Method Collection Time Receive d Time (Source) Location / / Volume Laterality 06/11/2013 2:37 PM 3 2:37 AVIATION SUPPORT EQUIPMENT REPAIRER PM AVIATION SUPPORT EQUIPMENT REPAIRER Juancarlos Castro M.D. LAB BLOOD ADD-ON Performing Organization Address City/State/ZIP Code Phon e Number [facility] - [address] [phone] [employer] [facility] Phosphorus Inorganic (06/11/2013 2:37 PM AVIATION SUPPORT EQUIPMENT REPAIRER) Analysis Performed At Patho logist Time Signature Phosphorus 2.7 2.5 - 4.5 [facility] (Inorganic), S MG/DL LABORATORIES - [employer] [facility] Specimen Anatomical Collection Method Collection Time Receive d Time (Source) Location / / Volume Laterality 06/11/2013 2:37 PM 3 2:37 AVIATION SUPPORT EQUIPMENT REPAIRER PM AVIATION SUPPORT EQUIPMENT REPAIRER Juancarlos Castro M.D. LAB BLOOD ADD-ON Performing Organization Address City/State/ZIP Code Phon e Number [facility] - [address] [phone] [employer] [facility] (ABNORMAL) 25-Hydroxyvitamin D2 and D3 (06/11/2013 2:37 PM AVIATION SUPPORT EQUIPMENT REPAIRER) [facility] gist Method Time Signature 25-Hydroxy D 6.0 (L) SeeComment [facility] Total NG/ML LABORATORIES - [employer] [facility] Comment: Interpretation: <10 ng/mL (severe defici ency) ? Reference Range: ? 25-HYDROXY D TOTAL (D2+D3) Optimum level s in the healthy ? population are 20-50, patients with bone disease may ? benefit from higher levels within this r itzel. ? 25-Hydroxy D2 <4.0 NG/ML [facility] 25-Hydroxy D3 6.0 NG/ML [facility] Specimen Anatomical Collection Method Collection Time Receive d Time (Source) Location / / Volume Laterality 06/11/2013 2:37 PM 3 2:37 AVIATION SUPPORT EQUIPMENT REPAIRER PM AVIATION SUPPORT EQUIPMENT REPAIRER Juancarlos Castro M.D. LAB BLOOD ADD-ON Performing Organization Address City/[facility]/ZIP Code Phon e Number [facility] - [address] S-TSH (Thyroid-Stimulating Hormone - Sensitive) (06/11/2013 2:37 PM AVIATION SUPPORT EQUIPMENT REPAIRER) athologist Signature TSH, Sensitive 2.2 0.3 - 5.0 [facility] MIU/L [facility] Specimen Anatomical Collection Method Collection Time Receive d Time (Source) Location / / Volume Laterality 06/11/2013 2:37 PM 3 2:37 AVIATION SUPPORT EQUIPMENT REPAIRER PM AVIATION SUPPORT EQUIPMENT REPAIRER Juancarlos Castro M.D. LAB BLOOD ADD-ON Performing Organization Address City/State/ZIP Code Phon e Number [facility] - [address] DX Chest AP or PA and Lateral 2 Views (06/11/2013 12:09 PM AVIATION SUPPORT EQUIPMENT REPAIRER) Anatomical Region Laterality Modality Chest N/A Radiographic Imaging Specimen (Source) Anatomical Collection Method Collection Time Re ceived Time Location / / Volume Laterality 06/11/2013 12:09 PM AVIATION SUPPORT EQUIPMENT REPAIRER Narrative 06/11/2013 12:15 PM AVIATION SUPPORT EQUIPMENT REPAIRER 11-Jun-2013 12:09:00 ??Exam: Chest-- 2 Views Indications: Ascites NOS;Transplant Live r ORIGINAL REPORT - 11-Jun-2013 12:15:00 Chest; 2 views: Patchy consolidation in the base of the right lower lobe medially is unchanged since yesterday. Moderate subpulmonic pleural effusion on the right has increased. Borderline cardiomegaly and pulmonary ve nous hypertension. Small nodule in the r ight mid lung laterally is new and is likely infectious. Biliary stents. Electronically signed by: ?? Roe Kirkpatrick M.D. ?? [phone] 11-Jun-2013 12:15 Procedure Note Neo Kirkpatrick M.D. - 09/19/2017Form atting of this note might be different from the original. 11-Jun-2013 12:09:00 Exam: Chest-- 2 Vie ws Indications: Ascites NOS;Transplant Live r ORIGINAL REPORT - 11-Jun-2013 12:15:00 Chest; 2 views: Patchy consolidation in the base of the right lower lobe medially is unchanged since yesterday. Moderate subpulmonic pleural effusion on the right has increased. Borderline cardiomegaly and pulmonary venous hypertension. Small nodule in the right mid lung laterally is new and is likely infectious. Biliary stents. Electronically signed by: Roe Kirkpatrick M.D. [id number] 11-Jun-2013 12 :15 Wil Raphael M.D. IMG DIAGNOSTIC IMAGI NG PROCEDURES US Abdomen Limited plus Abdomen Doppler (06/11/2013 11:53 AM AVIATION SUPPORT EQUIPMENT REPAIRER) Anatomical Region Laterality Modality Abdomen N/A Ultrasound Specimen (Source) Anatomical Collection Method Collection Time Re ceived Time Location / / Volume Laterality 06/11/2013 11:53 AM AVIATION SUPPORT EQUIPMENT REPAIRER Narrative 06/11/2013 1:16 PM AVIATION SUPPORT EQUIPMENT REPAIRER 11-Jun-2013 11:53:00 ??Exam: US Abd Lmtd with Doppler Cmpl Indications: [id number]; Liver TX w/doppler F/U Exam Following [place] ORIGINAL REPORT - 11-Jun-2013 13:16:00 US Abdomen Limited with color and spectr al Doppler analysis: Comparison to ultrasound 04/28/2013. Liver transplant:.... ??Slightly heterog eneous echotexture. Again noted is a small left lobe, difficult to see. Pneumobilia related to indwelling stents. No hepatic mass identified. Gallbladder:...........Absent. Bile ducts:............There are stents in the extrahepatic bile duct, which has recently been dilated with the lumen measuring up to 1cm. Thickened bile duct wall. No intrahepatic bile duct dilatation. Pneumobilia. 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 Intrahepatic arterial waveforms are identified, with slightly tardus configuration. Portal and hepati c veins and IVC patent. Left lobe and its vasculature difficult to interrogate. ?? Splenomegaly. Right pleural effusion. Mo derate ascites in the right lower abdomen. Electronically signed by: ?? Jovany Uriarte ??Sada [phone] 11-Jun-2013 1 3:16 Procedure Note Ileana Uriarte M.D. - 09/19/2017Form atting of this note might be different from the original. 11-Jun-2013 11:53:00 Exam: US Abd Lmtd w ith Doppler Cmpl Indications: [id number]; Liver TX w/doppler F/U Exam Following [place] ORIGINAL REPORT - 11-Jun-2013 13:16:00 US Abdomen Limited with color and spectr al Doppler analysis: Comparison to ultrasound 04/28/2013. Liver transplant:.... Slightly heterogen eous echotexture. Again noted is a small left lobe, difficult to see. Pneumobilia related to indwelling stents. No hepatic mass identified. Gallbladder:...........Absent. Bile ducts:............There are stents in the extrahepatic bile duct, which has recently been dilated with the lumen measuring up to 1cm. Thickened bile duct wall. No intrahepatic bile duct dilatation. Pneumobilia. 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 Intrahepatic arterial waveforms are identified, with slightly tardus configuration. Portal and hepatic veins and IVC patent. Left lobe and its vasculature difficult to interrogate. Splenomegaly. Right pleural effusion. Mo derate ascites in the right lower abdomen. Electronically signed by: Jovany Uriarte M.D. [phone] 11-Jun-2013 13: 16 Tiffanie HEREDIA US PROCEDURES (ABNORMAL) Bilirubin (06/11/2013 6:10 AM AVIATION SUPPORT EQUIPMENT REPAIRER) [facility] Method Time Signature Bilirubin, 29.5 (H) 0.1 - 1.0 [facility] Total, S MG/DL LABORATORIES - [employer] Bilirubin, 24.9 (H) 0.0 - 0.3 [facility] Direct, S MG/DL LABORATORIES - [employer] [facility] Specimen Anatomical Collection Method Collection Time Receive d Time (Source) Location / / Volume Laterality 06/11/2013 6:10 AM 3 6:10 AVIATION SUPPORT EQUIPMENT REPAIRER AM AVIATION SUPPORT EQUIPMENT REPAIRER Radha Block APRN, C.N.P., M.S.N., R.N. LAB BLOOD ADD-ON Performing Organization Address City/State/[facility] Phon e Number [facility] - [address] [phone] [employer] [facility] Calcium, Total (06/11/2013 6:10 AM AVIATION SUPPORT EQUIPMENT REPAIRER) P athologist Signature Calcium, 10.0 8.9 - 10.1 [facility] Total, S MG/DL LABORATORIES - [employer] [facility] Specimen Anatomical Collection Method Collection Time Receive d Time (Source) Location / / Volume Laterality 06/11/2013 6:10 AM 3 6:10 AVIATION SUPPORT EQUIPMENT REPAIRER AM AVIATION SUPPORT EQUIPMENT REPAIRER Radha Block APRN, C.N.P., M.S.N., R.N. LAB BLOOD ADD-ON Performing Organization Address City/[facility] Code Phon e Number [facility] - [address] [phone] [employer] [facility] (ABNORMAL) Tacrolimus Level (06/11/2013 6:10 AM AVIATION SUPPORT EQUIPMENT REPAIRER) Patholo gist Method Time Signature Tacrolimus, B <2.0 (L) 5.0-15.0 [facility] (Trough) LABORATORIES - NG/ML [facility] [employer] Tacrolimus . [facility] Blood Date of LABORATORIES - Last Dose [employer] [facility] [employer] [facility] Comment: Not Specified Tacrolimus Time of Last Dose . M [facility] - [employer] [facility] Comment: Not Specified Tacrolimus Blood Dose, mg . MG [facility] - [employer] Comment: Not Specified Specimen Anatomical Collection Method Collection Time Receive d Time (Source) Location / / Volume Laterality 06/11/2013 6:10 AM 3 6:10 AVIATION SUPPORT EQUIPMENT REPAIRER AM AVIATION SUPPORT EQUIPMENT REPAIRER Arely Ho APRN.N.P., M.S.N., R.N. LAB BLOOD NON ADD-ON Performing Organization Address City/State/ZIP Code Phon e Number [facility] - [address] [phone] [employer] [facility] (ABNORMAL) AST (Aspartate Aminotransferase) (06/11/2013 6:10 AM AVIATION SUPPORT EQUIPMENT REPAIRER) [facility] Method Time Signature AST, Total, S 189 (H) 8 - 48 U/L [facility] Specimen Anatomical Collection Method Collection Time Receive d Time (Source) Location / / Volume Laterality 06/11/2013 6:10 AM 3 6:10 AVIATION SUPPORT EQUIPMENT REPAIRER AM AVIATION SUPPORT EQUIPMENT REPAIRER Janette Ho APRNN.Evan., M.S.N., R.N. LAB BLOOD ADD-ON Performing Organization Address City/[facility]/ZIP Code Phon e Number [facility] - [address] [phone] [employer] [facility] (ABNORMAL) Albumin (06/11/2013 6:10 AM AVIATION SUPPORT EQUIPMENT REPAIRER) P athologist Signature Albumin, S 2.8 (L) 3.5 - 5.0 [facility] G/DL LABORATORIES - [facility] [employer] [facility] Specimen Anatomical Collection Method Collection Time Receive d Time (Source) Location / / Volume Laterality 06/11/2013 6:10 AM 3 6:10 AVIATION SUPPORT EQUIPMENT REPAIRER AM AVIATION SUPPORT EQUIPMENT REPAIRER Janette Ho APRNN.P., M.S.N., R.N. LAB BLOOD ADD-ON Performing Organization Address City/[facility]/ZIP Code Phon e Number [facility] - [address] [phone] [employer] [facility] (ABNORMAL) ALT (Alanine Aminotransferase) (06/11/2013 6:10 AM AVIATION SUPPORT EQUIPMENT REPAIRER) [facility] Method Time Signature Alanine 85 (H) 7 - 55 [facility] Aminotransferase U/L LABORATORIES - (ALT), S [employer] [facility] [employer] [facility] Specimen Anatomical Collection Method Collection Time Receive d Time (Source) Location / / Volume Laterality 06/11/2013 6:10 AM 3 6:10 AVIATION SUPPORT EQUIPMENT REPAIRER AM AVIATION SUPPORT EQUIPMENT REPAIRER Arley Ho APRN.N.P., M.S.N., R.N. LAB BLOOD ADD-ON Performing Organization Address City/[facility]/ZIP Code Phon e Number [facility] - [address] [phone] [employer] [facility] Alkaline Phosphatase (06/11/2013 6:10 AM AVIATION SUPPORT EQUIPMENT REPAIRER) P athologist Signature Alkaline 114 45 - 115 [facility] Phosphatase, S U/L [facility] Specimen Anatomical Collection Method Collection Time Receive d Time (Source) Location / / Volume Laterality 06/11/2013 6:10 AM 3 6:10 AVIATION SUPPORT EQUIPMENT REPAIRER AM AVIATION SUPPORT EQUIPMENT REPAIRER Radha Block APRN, C.N.P., M.S.N., R.N. LAB BLOOD ADD-ON Performing Organization Address City/[facility] Phon e Number [facility] - [address] [phone] [employer] [facility] (ABNORMAL) PT (Prothrombin Time) with INR (06/11/2013 6:10 AM AVIATION SUPPORT EQUIPMENT REPAIRER) [facility] Method Time Signature Prothrombin 26.7 (H) 9.5 - [facility] Time, P 13.8 SEC LABORATORIES [facility] INR 2.4 0.8 - 1.2 [facility] - [employer] [facility] Specimen Anatomical Collection Method Collection Time Receive d Time (Source) Location / / Volume Laterality 06/11/2013 6:10 AM 3 6:10 AVIATION SUPPORT EQUIPMENT REPAIRER AM AVIATION SUPPORT EQUIPMENT REPAIRER Arley Ho APRN.N.P., M.S.N., R.N. LAB BLOOD ADD-ON Performing Organization Address City/[facility] Phon e Number [facility] - [address] [phone] [employer] [facility] (ABNORMAL) Electrolyte (Chem 4) Panel (06/11/2013 6:10 AM AVIATION SUPPORT EQUIPMENT REPAIRER) [facility] Method Time Signature Sodium, S 131 (L) 135 - 145 [facility] MMOL/L [facility] Potassium, S 3.9 3.6 - 5.2 [facility] MMOL/L [facility] BUN (Blood Urea 32 (H) 8 - 24 [facility] Nitrogen), S MG/DL [facility] Anion Gap 13 7 - 15 [facility] Glucose, S 76 70 - 140 [facility] MG/DL [facility] Creatinine 2.2 (H) 0.8 - 1.3 [facility] MG/DL [facility] Chloride, S 100 100 - 108 [facility] MMOL/L LABORATORIES - [employer] [facility] HX Bicarbonate, 18 (L) 22 - 29 [facility] P/S MMOL/L LABORATORIES - [employer] [facility] eGFR 31 (L) >60 [facility] Non-Black/Afric ML/MIN/BS LABORATORIES - an [place]gas[place] A [employer] [facility] eGFR-Black/Afri 37 (L) >60 [facility] can [place] ML/MIN/BS LABORATORIES - A [employer] [facility] Specimen Anatomical Collection Method Collection Time Receive d Time (Source) Location / / Volume Laterality 06/11/2013 6:10 AM 3 6:10 AVIATION SUPPORT EQUIPMENT REPAIRER AM AVIATION SUPPORT EQUIPMENT REPAIRER Radha Block APRN, C.N.P., M.S.N., R.N. LAB BLOOD ADD-ON Performing Organization Address City/[facility]/ZIP Code Phon e Number [facility] - [address] [phone] [employer] [facility] Magnesium (06/11/2013 6:10 AM AVIATION SUPPORT EQUIPMENT REPAIRER) P athologist Signature Magnesium, S 1.9 1.7 - 2.3 [facility] MG/DL LABORATORIES - [employer] [facility] [facility] Specimen Anatomical Collection Method Collection Time Receive d Time (Source) Location / / Volume Laterality 06/11/2013 6:10 AM 3 6:10 AVIATION SUPPORT EQUIPMENT REPAIRER AM AVIATION SUPPORT EQUIPMENT REPAIRER Janette Ho APRNNFabrice., M.S.N., R.N. LAB BLOOD ADD-ON Performing Organization Address City/State/[facility] Code Phon e Number [facility]IES - [address] [phone] [employer] [facility] [facility] (ABNORMAL) CBC with Differential - No Alerts (06/11/2013 6:10 AM AVIATION SUPPORT EQUIPMENT REPAIRER) Patholo gist Method Time Signature Erythrocytes 2.06 (L) 4.32 - [facility] 5.72 LABORATORIES - X10(12)/L [facility] MCV 87.9 81.2 - [facility] 95.1 [place] LABORATORIES - [employer] [facility] RBC Distrib 20.0 (H) 11.8 - [facility] Width 15.6 % LABORATORIES - [employer] [facility] Platelet Count 90 (L) 150 - 450 [facility] X10(9)/L [facility]IES [facility] Lymphocytes 0.85 (L) 0.90 - [facility] 2.90 LABORATORIES - X10(9)/L [facility] Monocytes 0.51 0.30 - [facility] 0.90 LABORATORIES - X10(9)/L [facility] [employer] [facility] Hemoglobin 6.6 (L) 13.5 - [facility] 17.5 G/DL [facility] Hematocrit 18.1 (L) 38.8 - [facility] 50.0 % LABORATORIES - [employer] [facility] Leukocytes 3.7 3.5 - [facility] 10.5 LABORATORIES - X10(9)/L [facility] [employer] [facility] Neutrophils 2.12 1.70 - [facility] 7.00 LABORATORIES - X10(9)/L [facility] [employer] [facility] Eosinophils 0.18 0.05 - [facility] 0.50 LABORATORIES - X10(9)/L [facility] [employer] [facility] Basophils 0.02 0.00 - [facility] 0.30 LABORATORIES - X10(9)/L [facility] [employer] [facility] Specimen Anatomical Collection Method Collection Time Receive d Time (Source) Location / / Volume Laterality 06/11/2013 6:10 AM 3 6:10 AVIATION SUPPORT EQUIPMENT REPAIRER AM AVIATION SUPPORT EQUIPMENT REPAIRER Radha Block APRN, C.N.P., M.S.N., R.N. LAB BLOOD NON ADD-ON Performing Organization Address City/State/ZIP Code Phon e Number [facility] - [address] [place] [address] [employer] [facility] Microbiology Reports (06/10/2013 9:46 PM AVIATION SUPPORT EQUIPMENT REPAIRER) Specimen Anatomical Collection Method Collection Time Receive d Time (Source) Location / / Volume Laterality 06/10/2013 9:46 PM 3 9:46 AVIATION SUPPORT EQUIPMENT REPAIRER PM AVIATION SUPPORT EQUIPMENT REPAIRER Narrative [facility] - [facility] - 06/12/2013 6:33 AM AVIATION SUPPORT EQUIPMENT REPAIRER 10-JUN-2013 URINE, MIDSTREAM, ?SoftOrd# [id number] ?(Ordered 10-JUN-2013; Collec onel 10-JUN-2013 21:46; Received 10-JUN-2013 22:24) ?[facility] ?BACTERIAL CULTURE, AEROBIC, URI NE ? (Reported 12-JUN-2013 06:33) FINAL ?No Growth after 1 day of inc ubation. Procedure Note 10/01/2017 10-JUN-2013 URINE, MIDSTREAM, SoftOrd# [id number] (Ordered 10-JUN-2013; Collected 2012 21:46; Received 10-JUN-2013 22:24) [facility] BACTERIAL CULTURE, AEROBIC, URINE (Rep orted 12-JUN-2013 06:33) FINAL No Growth after 1 day of incubation. Arley Ho APRN.Ana.Evan., M.S.N., R.N. LAB MICRO BIOLOGY - GENERAL ORDERABLES Performing Organization Address City/State/ZIP Code Phon e Number [facility] - [address] [place], [place] [address] [employer] [facility] (ABNORMAL) Urinalysis with Microscopic (06/10/2013 9:46 PM AVIATION SUPPORT EQUIPMENT REPAIRER) [facility] gist Method Time Signature Glucose 7 0 - 15 MG/DL [facility] Osmolality, 24 340 150 - 1150 [facility] HR, U MOSM/KG [facility] Predicted 24 404 MG/24 H [facility] Hr Protein [facility] Predicted 128-1274 MG/24 H [facility] Range [facility] Source Midstream [facility] Appearance Bhakti Normal [facility] pH, 24 HR, U 6.2 4.5 - 8.0 [facility] Protein/Osmola 0.41 (H) <0.12 RATIO [facility] lity [facility] Protein, U 14 0 - 19 MG/DL [facility] Bilirubin . Negative [facility] Comment: No eosinophils seen; not enough cells to count accurately. Hemoglobin, QL Negative Negative [facility] Specimen Anatomical Collection Method Collection Time Receive d Time (Source) Location / / Volume Laterality 06/10/2013 9:46 PM 3 9:46 AVIATION SUPPORT EQUIPMENT REPAIRER PM AVIATION SUPPORT EQUIPMENT REPAIRER Arley Ho APRN.N.P., M.S.N., R.N. LAB URINE ORDERABLES Performing Organization Address City/[facility]/ZIP Code Phon e Number [facility] - [address] [place] [phone] [employer] [facility] (ABNORMAL) Microscopic Manual (06/10/2013 9:46 PM AVIATION SUPPORT EQUIPMENT REPAIRER) [facility] gist Method Time Signature Casts, Hyaline 1-3 /LPF [facility] Granular Casts Occas (A) /LPF [facility] Casts, Occas (A) /LPF [facility] Epithelial [facility]ATORIES [facility] Renal 1-3 (A) /HPF [facility] Epithelial LABORATORIES - Cells [employer] [facility] Microscopy Abnormal [facility] WBC 1-3 1-3 [facility] (Males); LABORATORIES - 1-10 [facility] (Females) CAMPUS /HPF Specimen Anatomical Collection Method Collection Time Receive d Time (Source) Location / / Volume Laterality 06/10/2013 9:46 PM 3 9:46 AVIATION SUPPORT EQUIPMENT REPAIRER PM AVIATION SUPPORT EQUIPMENT REPAIRER Radha Block APRN, C.N.P., M.S.N., R.N. LAB URINE ORDERABLES Performing Organization Address City/State/ZIP Code Phon e Number [facility] - [address] [place] [phone] [employer] [facility] Microbiology Reports (06/10/2013 5:58 PM AVIATION SUPPORT EQUIPMENT REPAIRER) Specimen Anatomical Collection Method Collection Time Receive d Time (Source) Location / / Volume Laterality 06/10/2013 5:58 PM 3 5:59 AVIATION SUPPORT EQUIPMENT REPAIRER PM AVIATION SUPPORT EQUIPMENT REPAIRER Narrative [facility] - 06/15/2013 6:31 PM AVIATION SUPPORT EQUIPMENT REPAIRER 10-JUN-2013 BLOOD, ? SoftOrd# [id number] ?(Ordered 10-JUN-2013; Collec onel 10-JUN-2013 17:58; Received 10-JUN-2013 18:22) ?[facility] ?BACTERIA/MARRY CULTURE, BLOOD ? (Reported 15-JUN-2013 18:31) FINAL ?No growth after 5 days of in cubation. Procedure Note 10/01/2017 10-JUN-2013 BLOOD, SoftOrd# [id number] (Ordered 10-JUN-2013; Collected 2012 17:58; Received 10-JUN-2013 18:22) [facility] BACTERIA/MARRY CULTURE, BLOOD (Repor onel 15-JUN-2013 18:31) FINAL No growth after 5 days of incubation. Radha Block APRN C.NDemetriusP., M.S.N., R.N. LAB MICRO BIOLOGY - GENERAL ORDERABLES Performing Organization Address City/State/ZIP Code Phon e Number [facility] - [address] [place], [place] [address] [employer] [facility] Microbiology Reports (06/10/2013 5:46 PM AVIATION SUPPORT EQUIPMENT REPAIRER) Specimen Anatomical Collection Method Collection Time Receive d Time (Source) Location / / Volume Laterality 06/10/2013 5:46 PM 3 5:47 AVIATION SUPPORT EQUIPMENT REPAIRER PM AVIATION SUPPORT EQUIPMENT REPAIRER Narrative [facility] - 06/15/2013 6:31 PM AVIATION SUPPORT EQUIPMENT REPAIRER 10-JUN-2013 BLOOD, ? SoftOrd# [id number] ?(Ordered 10-JUN-2013; Collec onel 10-JUN-2013 17:46; Received 10-JUN-2013 18:23) ?[facility] ?BACTERIA/MARRY CULTURE, BLOOD ? (Reported 15-JUN-2013 18:31) FINAL ?No growth after 5 days of in cubation. Procedure Note 10/01/2017 10-JUN-2013 BLOOD, SoftOrd# [id number] (Ordered 10-JUN-2013; Collected 2012 17:46; Received 10-JUN-2013 18:23) [facility] BACTERIA/MARRY CULTURE, BLOOD (Repor onel 15-JUN-2013 18:31) FINAL No growth after 5 days of incubation. Radha Block APRN, C.N.P., M.S.N., R.N. LAB MICRO BIOLOGY - GENERAL ORDERABLES Performing Organization Address City/State/ZIP Code Phon e Number [facility] - [address] [place], [place] [address] [employer] [facility] Microbiology Reports (06/10/2013 5:01 PM AVIATION SUPPORT EQUIPMENT REPAIRER) Specimen Anatomical Collection Method Collection Time Receive d Time (Source) Location / / Volume Laterality 06/10/2013 5:01 PM 3 8:46 AVIATION SUPPORT EQUIPMENT REPAIRER PM AVIATION SUPPORT EQUIPMENT REPAIRER Narrative [facility] - 06/15/2013 2:08 PM AVIATION SUPPORT EQUIPMENT REPAIRER 10-JUN-2013 PERITONEAL FLUID, RIGHT ?SoftOrd# [id number] ?(Ordered 10-JUN-2013; Collec onel 10-JUN-2013 17:01; Received 10-JUN-2013 20:58) ?[facility] ?Received Bactec aerobic and Bactec anaerobic bottles Bacterial aerobic and anaerobic susceptibilities ?requested. ?BACTERIAL CULTURE, AEROBIC ?(Reported 15-JUN-2013 14:08) FINAL ?No growth after 5 days of in cubation. ?GRAM STAIN ?(Reported 10-JUN-2013 22:15) FINAL ?No organisms seen. White blo od cells present. ?BACTERIAL CULTURE, ANAEROBIC ? (Reported 10-JUN-2013 22:43) CANCEL ?Cancel reason - 06/10/2013 2 2:43 Anaerobic Culture results reported under Aerobic Culture results for ?this specimen type. Procedure Note 10/01/2017 10-JUN-2013 PERITONEAL FLUID, RIGHT Sof tOrd# [id number] (Ordered 10-JUN-2013; Collected 2012 17:01; Received 10-JUN-2013 20:58) [facility] Received Bactec aerobic and Bactec anae robic bottles Bacterial aerobic and anaerobic susceptibilities requested. BACTERIAL CULTURE, AEROBIC (Reported 2 26-MAY-2013 14:08) FINAL No growth after 5 days of incubation. GRAM STAIN (Reported 10-JUN-2013 22:15 ) FINAL No organisms seen. White blood cells pr esent. BACTERIAL CULTURE, ANAEROBIC (Reported 10-JUN-2013 22:43) CANCEL Cancel reason - 06/10/2013 22:43 Anaero bic Culture results reported under Aerobic Culture results for this specimen type. Radha Block APRN, C.N.P., M.S.N., R.N. LAB MICRO BIOLOGY - GENERAL ORDERABLES Performing Organization Address City/State/ZIP Code Phon e Number [facility] - [address] [place], [place] [address] [employer] [facility] Cell Count and Differential, Body Fluid (06/10/2013 5:01 PM AVIATION SUPPORT EQUIPMENT REPAIRER) [facility] Method Time Signature Total <52 SeeComment [facility] Nucleated /MCL LABORATORIES - Cells [facility] Comment: Reference Range: ? Synovial: <150 ? Peritoneal: <500 ? Pleural: <500 ? Pericardial: <500 ? Neutrophils 2 SeeComment % [facility] Comment: Reference Range: ? Synovial: <25% ? Peritoneal: <25% ? Pleural: <25% ? Pericardial: <25% ? Other Cells 13 % [facility] Other Cells Are: . [facility] Comment: Mesothelial cells Fluid Type (CC and Diff BF) . [place] [facility] Comment: Right Peritoneal-Paracentesis Gross Appearance Icteric [facility] Lymphocytes 19 Synovial: <75% % [facility] S Monocytes/Macrophages 66 Synovial: <70% % M [facility] S Comment . [facility] Comment: No blasts or malignant cells se en. Reviewed by: [facility] Specimen Anatomical Collection Method Collection Time Receive d Time (Source) Location / / Volume Laterality 06/10/2013 5:01 PM 3 5:01 AVIATION SUPPORT EQUIPMENT REPAIRER PM AVIATION SUPPORT EQUIPMENT REPAIRER Radha Block APRN, C.N.P., M.S.N., R.N. LAB BODY FLUIDS AND STOOLS ORDERABLES Performing Organization Address City/State/ZIP Code Phon e Number [facility] - [address] [place], [place] [address] [employer] [facility] DX Chest AP or PA and Lateral 2 Views (06/10/2013 3:41 PM AVIATION SUPPORT EQUIPMENT REPAIRER) Anatomical Region Laterality Modality Chest N/A Radiographic Imaging Specimen (Source) Anatomical Collection Method Collection Time Re ceived Time Location / / Volume Laterality 06/10/2013 3:41 PM AVIATION SUPPORT EQUIPMENT REPAIRER Narrative 06/10/2013 3:47 PM AVIATION SUPPORT EQUIPMENT REPAIRER 10-Jun-2013 15:41:00 ??Exam: Chest-- 2 Views Indications: shortness of breath ORIGINAL REPORT - 10-Jun-2013 15:47:00 Chest; 2 views: New area of infiltrate in the right base medially has developed since 10/21/2012 likely an area of pneumonia. Shallower inspiration on today's examination. Left lung is clear. The right PICC line has been removed. Indwelling biliary stents. Electronically signed by: ?? Dorene Kirkpatrick MD ??[id number] 10-Jun-2013 1 5:47 Procedure Note Otoniel Kirkpatrick M.D. - 09/19/2017Form atting of this note might be different from the original. 10-Jun-2013 15:41:00 Exam: Chest-- 2 Vie ws Indications: shortness of breath ORIGINAL REPORT - 10-Jun-2013 15:47:00 Chest; 2 views: New area of infiltrate in the right base medially has developed since 10/21/2012 likely an area of pneumonia. Shallower inspiration on today's examination. Left lung is clear. The right PICC line has been removed. Indwelling biliary stents. Electronically signed by: Dorene Kirkpatrick MD [id number] 10-Jun-2013 15: 47 Radha Block APRN C.N.P., M.S.N., R.N. IMG DIAGN OSTIC IMAGING PROCEDURES Prepare Red Blood Cells (06/10/2013 9:25 AM AVIATION SUPPORT EQUIPMENT REPAIRER) Analysis Performed At Patho logist Time Signature HXRBC # UNITS 2 [facility] TRANSFUSED LAB[facility]ATORIES [facility] HXRBC UNIT INFO RBC [facility] Comment: Unit Blood Type O Pos Unit Number [id number] Component Type Red Blood Cells - -1 Le ukoreduced Issue Date/Time [id number] Unit Blood Type O Pos Unit Number [id number] Component Type Red Blood Cells - -1 Le ukoreduced Issue Date/Time [id number] Specimen (Source) Anatomical Collection Method Collection Time Re ceived Time Location / / Volume Laterality 06/10/2013 9:25 AM AVIATION SUPPORT EQUIPMENT REPAIRER Historical Provider BLOOD BANK PRODUCT ORDERABLE S Performing Organization Address City/State/ZIP Code Phon e Number [facility] - [address] [place], [place] [address] [employer] [facility] (ABNORMAL) Tacrolimus Level (06/10/2013 7:11 AM AVIATION SUPPORT EQUIPMENT REPAIRER) Patholo gist Method Time Signature Tacrolimus, B 2.2 (L) 5.0-15.0 [facility] (Trough) LABORATORIES - NG/ML [employer] [facility] [employer] Tacrolimus . [facility] Blood Date of LABORATORIES - Last Dose [employer] [facility] [employer] [facility] Comment: Not Specified Tacrolimus Time of Last Dose . M [facility] Comment: Not Specified Tacrolimus Blood Dose, mg . MG [facility] LAB[facility]IES - [employer] [facility] Comment: Not Specified Specimen Anatomical Collection Method Collection Time Receive d Time (Source) Location / / Volume Laterality 06/10/2013 7:11 AM 3 7:11 AVIATION SUPPORT EQUIPMENT REPAIRER AM AVIATION SUPPORT EQUIPMENT REPAIRER Leonid Gonzalez M.D. LAB BLOOD NON ADD-ON Performing Organization Address City/[facility]/ZIP Code Phon e Number [facility] - [address] [place], [place] [address] [employer] [facility] (ABNORMAL) Tacrolimus Level (06/09/2013 9:45 AM AVIATION SUPPORT EQUIPMENT REPAIRER) Analysis Performed At Patho logist Time Signature Tacrolimus Time 1999 [facility] of Last Dose LABORATORIES - [employer] [facility] Comment: Mailed In Specimen Tacrolimus Blood Dose, mg . MG [facility] Comment: Mailed In Specimen ? Not Specified ? Tacrolimus, B 2.3 (L) 5.0-15.0 (Trough) NG/ML [facility] Comment: Mailed In Specimen Tacrolimus Blood Date of Last 06/08/2013 [facility] - [facility] Comment: Mailed In Specimen Specimen Anatomical Collection Method Collection Time Receive d Time (Source) Location / / Volume Laterality 06/09/2013 9:45 AM 3 9:45 AVIATION SUPPORT EQUIPMENT REPAIRER AM AVIATION SUPPORT EQUIPMENT REPAIRER Narrative [facility] - 06/10/2013 3:52 PM AVIATION SUPPORT EQUIPMENT REPAIRER Mailed In Specimen Vanessa Parra APRN, C.N.P. LAB BLOOD NON ADD-ON Performing Organization Address City/State/ZIP Code Phon e Number [facility] - [address] [place], [place] [address] [employer] [facility] documented in this encounter Visit Diagnoses Not on filedocumented in this encounter Additional Health Concerns Assessment Noted Time PHQ-9 Depression Total Score: 3 04/07/2013 9:47 AM CDT documented as of this encounter
--- OUTSIDE RECORDS SUMMARY | 2022-04-13 12:44 | XMS_ITS | Encounter Summary ---
:1955 Author Organization [facility] Address [address] [place] [address] Care Team Providers Name Role Phone Unavailable Primary Care Provider Unavailable Encounter Details Date Type Department Care Team Description 04/16/2013 - Hospital Encounter HX RST INFUSION Joselyn Strickland, 04/23/2013 THERAPY R.N. 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 encounter Last Filed Vital Signs Vital Sign Reading Time Taken Comments Blood Pressure 133/73 04/22/2013 3:19 PM CDT Pulse 65 04/22/2013 3:19 PM CDT Temperature - - Respiratory Rate - - Oxygen Saturation - - Inhaled Oxygen Concentration - - Weight 80.6 kg (177 lb 11.1 oz) 04/22/2013 3:19 PM CDT Height 180.3 cm (5' 10.98) 04/22/2013 3:19 PM CDT Body Mass Index 24.79 04/22/2013 3:19 PM CDT documented in this encounter Medications at Time of Discharge Medication Sig Dispensed Refills Start Date End Date cholecalciferol (VITAMIN Take 1 capsule by 0 02/2105/24/2021 D3) 50 mcg (2,000 Unit) mouth daily. capsule documented as of this encounter Plan of Treatment Upcoming Encounters Date Type Specialty Care Team Description 04/24/2022 Appointment Laboratory Medicine Angélica Granger, P.A.-C. [address] [place] [phone] 04/25/2022 Office Visit Otorhinolaryngology Dex Matta APRN, C.N.P., M.S.N. [address] [place] [phone] 05/08/2022 Appointment Laboratory Medicine Angélica Granger, P.A.-C. [address] [place] [phone] 05/08/2022 Clinical Admitting/Central Communication Scheduling 05/10/2022 Appointment Radiology Jeremie Rose M.D. [address] [place] [phone] 05/10/2022 Comprehensive Visit Orthopedic Surgery Warner Graves M.D. [address] [place] [phone] 05/22/2022 Appointment Laboratory Medicine Angélica Granger P.A.-C. [address] [place] [phone] 06/05/2022 Appointment Laboratory Medicine Angléica Granger P.A.-C. [address] [place] [phone] 06/19/2022 Appointment Laboratory Medicine Angélica Granger P.A.-C. [address] [place] [phone] 07/03/2022 Appointment Laboratory Medicine Angélica Granger P.A.-C. [address] [place] [phone] 07/17/2022 Appointment Laboratory Medicine Angélica Granger P.A.-C. [address] [place] [phone] 07/31/2022 Appointment Laboratory Medicine Angélica Granger P.A.-C. [address] [place] [phone] 08/14/2022 Appointment Laboratory Medicine Angélica Granger P.A.-C. [address] [place] [phone] 08/28/2022 Appointment Laboratory Medicine Angélica Granger P.A.-C. [address] [place] [phone] documented as of this encounter Visit Diagnoses Not on filedocumented in this encounter Additional Health Concerns Assessment Noted Time PHQ-9 Depression Total Score: 3 04/07/2013 9:47 AM CDT documented as of this encounter
--- OUTSIDE RECORDS SUMMARY | 2022-04-13 12:44 | XMS_ITS | Encounter Summary ---
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 capsule documented as 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 [address] [place] [phone] 04/25/2022 Office Visit Otorhinolaryngology Dex Matta APRN, C.N.P., M.S.N. [address] [place] [phone] 05/08/2022 Appointment Laboratory Medicine Angélica Granger P.A.-CDemetrius [address] [place] [phone] 05/08/2022 Clinical Admitting/Central Communication Scheduling 05/10/2022 Appointment Radiology Jeremie Rose M.D. [address] [place] [phone] 05/10/2022 Comprehensive Visit Orthopedic Surgery Warner Graves M.D. [address] [place] [phone] 05/22/2022 Appointment Laboratory Medicine Angélica Granger P.A.-CDemetrius [address] [place] [phone] 06/05/2022 Appointment Laboratory Medicine Angélica Granger P.A.-C. [address] [place] [phone] 06/19/2022 Appointment Laboratory Medicine Angélica Granger P.A.-C. [address] [place] [phone] 07/03/2022 Appointment Laboratory Medicine Angélica Granger P.A.-C. [address] [place] [phone] 07/17/2022 Appointment Laboratory Medicine Angélica Granger P.A.-C. [address] [place] [phone] 07/31/2022 Appointment Laboratory Medicine Angélica Granger P.A.-C. [address] [place] [phone] 08/14/2022 Appointment Laboratory Medicine Angélica Granger P.A.-C. [address] [place] [phone] 08/28/2022 Appointment Laboratory Medicine Angélica Granger P.A.-C. [address] [place] [phone] documented as of this encounter Visit Diagnoses Not on filedocumented in this encounter Additional Health Concerns Assessment Noted Time PHQ-9 Depression Total Score: 3 04/07/2013 9:47 AM CDT documented as of this encounter
--- OUTSIDE RECORDS SUMMARY | 2022-04-13 12:44 | XMS_ITS | Encounter Summary ---
:1955 Author Organization [facility] Address [address] [place] [address] Care Team Providers Name Role Phone Unavailable Primary Care Provider Unavailable Encounter Details Date Type Department Care Team Description 06/10/2013 Hospital Encounter HX NO MAPPING Roshan Grace M.S .N., R.N., C.C.T.C. 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 capsule documented as 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 [address] [place] [phone] 04/25/2022 Office Visit Otorhinolaryngology Dex Matta APRN, C.N.P., M.S.N. [address] [place] [phone] 05/08/2022 Appointment Laboratory Medicine Angélica Granger P.A.-CDemetrius [address] [place] [phone] 05/08/2022 Clinical Admitting/Central Communication Scheduling 05/10/2022 Appointment Radiology Jeremie Rose M.D. [address] [place] [phone] 05/10/2022 Comprehensive Visit Orthopedic Surgery Warner Graves M.D. [address] [place] [phone] 05/22/2022 Appointment Laboratory Medicine Angélica Granger P.A.-C. [address] [place] [phone] 06/05/2022 Appointment Laboratory Medicine Angélica Granger P.A.-C. [address] [place] [phone] 06/19/2022 Appointment Laboratory Medicine Angélica Granger P.A.-C. [address] [place] [phone] 07/03/2022 Appointment Laboratory Medicine Angélica Granger P.A.-C. [address] [place] [phone] 07/17/2022 Appointment Laboratory Medicine Angélica Granger P.A.-C. [address] [place] [phone] 07/31/2022 Appointment Laboratory Medicine Angélica Granger P.A.-C. [address] [place] [phone] 08/14/2022 Appointment Laboratory Medicine Angélica Granger P.A.-C. [address] [place] [phone] 08/28/2022 Appointment Laboratory Medicine Angélica Granger P.A.-C. [address] [place] [phone] documented as of this encounter Visit Diagnoses Not on filedocumented in this encounter Additional Health Concerns Assessment Noted Time PHQ-9 Depression Total Score: 3 04/07/2013 9:47 AM CDT documented as of this encounter
--- OUTSIDE RECORDS SUMMARY | 2022-04-13 12:44 | XMS_ITS | Encounter Summary ---
:1955 Author Organization [facility] Address [address] [place] [address] Care Team Providers Name Role Phone Unavailable Primary Care Provider Unavailable Encounter Details Date Type Department Care Team Description 06/07/2013 Hospital Encounter HX NO MAPPING Roshan Grace M.S .N., R.N., C.C.T.C. 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 capsule documented as 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 [address] [place] [phone] 04/25/2022 Office Visit Otorhinolaryngology Dex Matta APRN, C.N.P., M.S.N. [address] [place] [phone] 05/08/2022 Appointment Laboratory Medicine Angélica Granger P.A.-CDemetrius [address] [place] [address] [phone] 05/08/2022 Clinical Admitting/Central Communication Scheduling 05/10/2022 Appointment Radiology Jeremie Rose M.D. [address] [place] [phone] 05/10/2022 Comprehensive Visit Orthopedic Surgery Warner Graves M.D. [address] [place] [address] [phone] 05/22/2022 Appointment Laboratory Medicine Angélica Granger P.A.-C. [address] [place] [phone] 06/05/2022 Appointment Laboratory Medicine Angélica Granger P.A.-C. [address] [place] [phone] 06/19/2022 Appointment Laboratory Medicine Angélica Granger P.A.-C. [address] [place] [phone] 07/03/2022 Appointment Laboratory Medicine Angélica Granger P.A.-C. [address] [place] [phone] 07/17/2022 Appointment Laboratory Medicine Angélica Granger P.A.-C. [address] [place] [phone] 07/31/2022 Appointment Laboratory Medicine Angélica Granger P.A.-C. [address] [place] [phone] 08/14/2022 Appointment Laboratory Medicine Angélica Granger P.A.-C. [address] [place] [phone] 08/28/2022 Appointment Laboratory Medicine Angélica Granger P.A.-C. [address] [place] [phone] documented as of this encounter Visit Diagnoses Not on filedocumented in this encounter Additional Health Concerns Assessment Noted Time PHQ-9 Depression Total Score: 3 04/07/2013 9:47 AM CDT documented as of this encounter
--- OUTSIDE RECORDS SUMMARY | 2022-04-13 12:44 | XMS_ITS | Encounter Summary ---
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 capsule documented as 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 [address] [place] [phone] 04/25/2022 Office Visit Otorhinolaryngology Dex Matta APRN, C.N.P., M.S.N. [address] [place] [phone] 05/08/2022 Appointment Laboratory Medicine Angélica Granger P.A.-CDemetrius [address] [place] [phone] 05/08/2022 Clinical Admitting/Central Communication Scheduling 05/10/2022 Appointment Radiology Jeremie Rose M.D. [address] [place] [phone] 05/10/2022 Comprehensive Visit Orthopedic Surgery Warner Graves M.D. [address] [place] [phone] 05/22/2022 Appointment Laboratory Medicine Angélica Granger P.A.-CDemetrius [address] [place] [address] [phone] 06/05/2022 Appointment Laboratory Medicine Angélica Granger P.A.-C. [address] [place] [phone] 06/19/2022 Appointment Laboratory Medicine Angélica Granger P.A.-C. [address] [place] [phone] 07/03/2022 Appointment Laboratory Medicine Angélica Granger P.A.-C. [address] [place] [phone] 07/17/2022 Appointment Laboratory Medicine Angélica Granger P.A.-C. [address] [place] [phone] 07/31/2022 Appointment Laboratory Medicine Angélica Granger P.A.-C. [address] [place] [phone] 08/14/2022 Appointment Laboratory Medicine Angélica Granger P.A.-C. [address] [place] [phone] 08/28/2022 Appointment Laboratory Medicine Angélica Granger P.A.-C. [address] [place] [phone] documented as of this encounter Visit Diagnoses Not on filedocumented in this encounter Additional Health Concerns Assessment Noted Time PHQ-9 Depression Total Score: 3 04/07/2013 9:47 AM CDT documented as of this encounter
--- OUTSIDE RECORDS SUMMARY | 2022-04-13 12:44 | XMS_ITS | Encounter Summary ---
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 capsule documented as of this encounter Plan of Treatment Upcoming Encounters Date Type Specialty Care Team Description 04/24/2022 Appointment Laboratory Medicine Angélcia Granger P.A.-C. [address] [place] [phone] 04/25/2022 Office Visit Otorhinolaryngology Dex Matta APRN, C.N.P., M.S.N. [address] [place] [phone] 05/08/2022 Appointment Laboratory Medicine Angélica Granger P.A.-CDemetrius [address] [place] [phone] 05/08/2022 Clinical Admitting/Central Communication Scheduling 05/10/2022 Appointment Radiology Jeremie Rose M.D. [address] [place] [phone] 05/10/2022 Comprehensive Visit Orthopedic Surgery Warner Graves M.D. [address] [place] [phone] 05/22/2022 Appointment Laboratory Medicine Angélica Granger P.A.-CDemetrius [address] [place] [address] [phone] 06/05/2022 Appointment Laboratory Medicine Angélica Granger P.A.-C. [address] [place] [phone] 06/19/2022 Appointment Laboratory Medicine Angélica Granger P.A.-C. [address] [place] [phone] 07/03/2022 Appointment Laboratory Medicine Angélica Granger P.A.-C. [address] [place] [phone] 07/17/2022 Appointment Laboratory Medicine Angélica Granger P.A.-C. [address] [place] [phone] 07/31/2022 Appointment Laboratory Medicine Angélica Granger P.A.-C. [address] [place] [phone] 08/14/2022 Appointment Laboratory Medicine Angélica Granger P.A.-C. [address] [place] [phone] 08/28/2022 Appointment Laboratory Medicine Angélica Granger P.A.-C. [address] [place] [phone] documented as of this encounter Visit Diagnoses Not on filedocumented in this encounter Additional Health Concerns Assessment Noted Time PHQ-9 Depression Total Score: 3 04/07/2013 9:47 AM CDT documented as of this encounter
--- OUTSIDE RECORDS SUMMARY | 2022-04-13 12:44 | XMS_ITS | Encounter Summary ---
:[address] 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 capsule documented as 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 [address] [place] [phone] 04/25/2022 Office Visit Otorhinolaryngology Dex Matta APRN, C.N.P., M.S.N. [address] [place] [phone] 05/08/2022 Appointment Laboratory Medicine Angélica Granger P.A.-CDemetrius [address] [place] [phone] 05/08/2022 Clinical Admitting/Central Communication Scheduling 05/10/2022 Appointment Radiology Jeremie Rose M.D. [address] [place] [phone] 05/10/2022 Comprehensive Visit Orthopedic Surgery Warner Graves M.D. [address] [place] [phone] 05/22/2022 Appointment Laboratory Medicine Angélica Granger P.A.-CDemetrius [address] [place] [address] [phone] 06/05/2022 Appointment Laboratory Medicine Angélica Granger P.A.-C. [address] [place] [phone] 06/19/2022 Appointment Laboratory Medicine Angélica Granger P.A.-C. [address] [place] [phone] 07/03/2022 Appointment Laboratory Medicine Angélica Granger P.A.-C. [address] [place] [phone] 07/17/2022 Appointment Laboratory Medicine Angélica Granger P.A.-C. [address] [place] [phone] 07/31/2022 Appointment Laboratory Medicine Angélica Granger P.A.-C. [address] [place] [phone] 08/14/2022 Appointment Laboratory Medicine Angélica Granger P.A.-C. [address] [place] [phone] 08/28/2022 Appointment Laboratory Medicine Angélica Granger P.A.-C. [address] [place] [phone] documented as of this encounter Visit Diagnoses Not on filedocumented in this encounter Additional Health Concerns Assessment Noted Time PHQ-9 Depression Total Score: 3 04/07/2013 9:47 AM CDT documented as of this encounter
--- OUTSIDE RECORDS SUMMARY | 2022-04-13 12:44 | XMS_ITS | Encounter Summary ---
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 capsule documented as 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 [address] [place] [phone] 04/25/2022 Office Visit Otorhinolaryngology Dex Matta APRN, C.N.P., M.S.N. [address] [place] [phone] 05/08/2022 Appointment Laboratory Medicine Angélica Granger P.A.-CDemetrius [address] [place] [phone] 05/08/2022 Clinical Admitting/Central Communication Scheduling 05/10/2022 Appointment Radiology Jeremie Rsoe M.D. [address] [place] [phone] 05/10/2022 Comprehensive Visit Orthopedic Surgery Warner Graves M.D. [address] [place] [phone] 05/22/2022 Appointment Laboratory Medicine Angélica Granger P.A.-CDemetrius [address] [place] [address] [phone] 06/05/2022 Appointment Laboratory Medicine Angélica Granger P.A.-C. [address] [place] [phone] 06/19/2022 Appointment Laboratory Medicine Angélica Granger P.A.-C. [address] [place] [phone] 07/03/2022 Appointment Laboratory Medicine Angélica Granger P.A.-C. [address] [place] [phone] 07/17/2022 Appointment Laboratory Medicine Angélica Granger P.A.-C. [address] [place] [phone] 07/31/2022 Appointment Laboratory Medicine Angélica Granger P.A.-C. [address] [place] [phone] 08/14/2022 Appointment Laboratory Medicine Angélica Granger P.A.-C. [address] [place] [phone] 08/28/2022 Appointment Laboratory Medicine Angélica Granger P.A.-C. [address] [place] [phone] documented as of this encounter Visit Diagnoses Not on filedocumented in this encounter Additional Health Concerns Assessment Noted Time PHQ-9 Depression Total Score: 3 04/07/2013 9:47 AM CDT documented as of this encounter
--- OUTSIDE RECORDS SUMMARY | 2022-04-13 12:44 | XMS_ITS | Encounter Summary ---
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 capsule documented as 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 [address] [place] [phone] 04/25/2022 Office Visit Otorhinolaryngology Dex Matta APRN, C.N.P., M.S.N. [address] [place] [phone] 05/08/2022 Appointment Laboratory Medicine Angélica Granger P.A.-CDemetrius [address] [place] [phone] 05/08/2022 Clinical Admitting/Central Communication Scheduling 05/10/2022 Appointment Radiology Jeremie Rose M.D. [address] [place] [phone] 05/10/2022 Comprehensive Visit Orthopedic Surgery Warner Gravse M.D. [address] [place] [phone] 05/22/2022 Appointment Laboratory Medicine Angélica Granger P.A.-CDemetrius [address] [place] [address] [phone] 06/05/2022 Appointment Laboratory Medicine Angélica Granger P.A.-C. [address] [place] [phone] 06/19/2022 Appointment Laboratory Medicine Angélica Granger P.A.-C. [address] [place] [phone] 07/03/2022 Appointment Laboratory Medicine Angélica Granger P.A.-C. [address] [place] [phone] 07/17/2022 Appointment Laboratory Medicine Angélica Granger P.A.-C. [address] [place] [phone] 07/31/2022 Appointment Laboratory Medicine Angélica Granger P.A.-C. [address] [place] [phone] 08/14/2022 Appointment Laboratory Medicine Angélica Granger P.A.-C. [address] [place] [phone] 08/28/2022 Appointment Laboratory Medicine Angélica Granger P.A.-C. [address] [place] [phone] documented as of this encounter Visit Diagnoses Not on filedocumented in this encounter Additional Health Concerns Assessment Noted Time PHQ-9 Depression Total Score: 3 04/07/2013 9:47 AM CDT documented as of this encounter
--- OUTSIDE RECORDS SUMMARY | 2022-04-13 12:44 | XMS_ITS | Encounter Summary ---
:1955 Author Organization [facility] Address [address] [place] [address] Care Team Providers Name Role Phone Unavailable Primary Care Provider Unavailable Encounter Details Date Type Department Care Team Description 04/29/2013 Hospital Encounter HX RST RADIOLOGY Argelia Solo M.D. 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 capsule documented as of this encounter Plan of Treatment Upcoming Encounters Date Type Specialty Care Team Description 04/24/2022 Appointment Laboratory Medicine Angélica Granger P.A.-CDemetrius [address] [place] [phone] 04/25/2022 Office Visit Otorhinolaryngology Dex Matta APRN, C.N.P., M.S.N. [address] [place] [address] [phone] 05/08/2022 Appointment Laboratory Medicine Angélica Granger P.A.-CDemetrius [address] [place] [address] [phone] 05/08/2022 Clinical Admitting/Central Communication Scheduling 05/10/2022 Appointment Radiology Jeremie Rose M.D. [address] [place] [phone] 05/10/2022 Comprehensive Visit Orthopedic Surgery Warner Graves M.D. [address] [place] [address] [phone] 05/22/2022 Appointment Laboratory Medicine Angélica Granger P.A.-CDemetrius [address] [place] [address] [phone] 06/05/2022 Appointment Laboratory Medicine Angélica Granger P.A.-C. [address] [place] [phone] 06/19/2022 Appointment Laboratory Medicine Angélica Granger P.A.-C. [address] [place] [phone] 07/03/2022 Appointment Laboratory Medicine Angélica Granger P.A.-C. [address] [place] [phone] 07/17/2022 Appointment Laboratory Medicine Angélica Granger P.A.-C. [address] [place] [phone] 07/31/2022 Appointment Laboratory Medicine Angélica Granger P.A.-C. [address] [place] [phone] 08/14/2022 Appointment Laboratory Medicine Angélica Granger P.A.-C. [address] [place] [phone] 08/28/2022 Appointment Laboratory Medicine Angélica Granger P.A.-C. [address] [place] [phone] documented as of this encounter Visit Diagnoses Not on filedocumented in this encounter Additional Health Concerns Assessment Noted Time PHQ-9 Depression Total Score: 3 04/07/2013 9:47 AM CDT documented as of this encounter
--- OUTSIDE RECORDS SUMMARY | 2022-04-13 12:44 | XMS_ITS | Encounter Summary ---
:1955 Author Organization [facility] Address [address] [place] [address] Care Team Providers Name Role Phone Unavailable Primary Care Provider Unavailable Encounter Details Date Type Department Care Team Description 06/15/2013 Hospital Encounter HX RST PULMONARY & CC Rigo De Los Santos, MED M.B.B.S. 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 capsule documented as 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 [address] [place] [address] [phone] 04/25/2022 Office Visit Otorhinolaryngology Dex Matta, RAMONA, C.N.P., M.S.N. [address] [place] [address] [phone] 05/08/2022 Appointment Laboratory Medicine Angélica Granger P.A.-CDemetrius [address] [place] [phone] 05/08/2022 Clinical Admitting/Central Communication Scheduling 05/10/2022 Appointment Radiology Jeremie Rose M.D. [address] [place] [phone] 05/10/2022 Comprehensive Visit Orthopedic Surgery Warner Graves M.D. [address] [place] [phone] 05/22/2022 Appointment Laboratory Medicine Angélica Granger P.A.-CDemetrius [address] [place] [phone] 06/05/2022 Appointment Laboratory Medicine Angélica Granger P.A.-CDemetrius [address] [place] [phone] 06/19/2022 Appointment Laboratory Medicine Angélica Granger P.A.-C. [address] [place] [address] [phone] 07/03/2022 Appointment Laboratory Medicine Angélica Granger P.A.-C. [address] [place] [address] [phone] 07/17/2022 Appointment Laboratory Medicine Angélica Granger P.A.-C. [address] [place] [address] [phone] 07/31/2022 Appointment Laboratory Medicine Angélica Granger P.A.-C. [address] [place] [address] [phone] 08/14/2022 Appointment Laboratory Medicine Angélica Granger P.A.-C. [address] [place] [address] [phone] 08/28/2022 Appointment Laboratory Medicine Angélica Granger P.A.-C. [address] [place] [phone] documented as of this encounter Visit Diagnoses Not on filedocumented in this encounter Additional Health Concerns Assessment Noted Time PHQ-9 Depression Total Score: 3 04/07/2013 9:47 AM CDT documented as of this encounter
--- OUTSIDE RECORDS SUMMARY | 2022-04-13 12:44 | XMS_ITS | Encounter Summary ---
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 capsule documented as 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 [address] [place] [phone] 04/25/2022 Office Visit Otorhinolaryngology Dex Matta APRN, C.N.P., M.S.N. [address] [place] [phone] 05/08/2022 Appointment Laboratory Medicine Angélica Granger P.A.-CDemetrius [address] [place] [phone] 05/08/2022 Clinical Admitting/Central Communication Scheduling 05/10/2022 Appointment Radiology Jeremie Rose M.D. [address] [place] [phone] 05/10/2022 Comprehensive Visit Orthopedic Surgery Warner Graves M.D. [address] [place] [phone] 05/22/2022 Appointment Laboratory Medicine Angélica Granger P.A.-CDemetrius [address] [place] [address] [phone] 06/05/2022 Appointment Laboratory Medicine Angélica Granger P.A.-C. [address] [place] [phone] 06/19/2022 Appointment Laboratory Medicine Angélica Granger P.A.-C. [address] [place] [phone] 07/03/2022 Appointment Laboratory Medicine Angélica Granger P.A.-C. [address] [place] [phone] 07/17/2022 Appointment Laboratory Medicine Angélica Granger P.A.-C. [address] [place] [phone] 07/31/2022 Appointment Laboratory Medicine Angélica Granger P.A.-C. [address] [place] [phone] 08/14/2022 Appointment Laboratory Medicine Angélica Granger P.A.-C. [address] [place] [phone] 08/28/2022 Appointment Laboratory Medicine Angélica Granger P.A.-C. [address] [place] [phone] documented as of this encounter Visit Diagnoses Not on filedocumented in this encounter Additional Health Concerns Assessment Noted Time PHQ-9 Depression Total Score: 3 04/07/2013 9:47 AM CDT documented as of this encounter
--- OUTSIDE RECORDS SUMMARY | 2022-04-13 12:44 | XMS_ITS | Encounter Summary ---
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 capsule documented as 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 [address] [place] [phone] 04/25/2022 Office Visit Otorhinolaryngology Dex Matta APRN, C.N.P., M.S.N. [address] [place] [phone] 05/08/2022 Appointment Laboratory Medicine Angélica Granger P.A.-CDemetrius [address] [place] [phone] 05/08/2022 Clinical Admitting/Central Communication Scheduling 05/10/2022 Appointment Radiology Jeremie Rose M.D. [address] [place] [phone] 05/10/2022 Comprehensive Visit Orthopedic Surgery Warner Graves M.D. [address] [place] [phone] 05/22/2022 Appointment Laboratory Medicine Angélica Granger P.A.-CDemetrius [address] [place] [address] [phone] 06/05/2022 Appointment Laboratory Medicine Angélica Granger P.A.-C. [address] [place] [phone] 06/19/2022 Appointment Laboratory Medicine Angélica Granger P.A.-C. [address] [place] [phone] 07/03/2022 Appointment Laboratory Medicine Angélica Granger P.A.-C. [address] [place] [phone] 07/17/2022 Appointment Laboratory Medicine Angélica Granger P.A.-C. [address] [place] [phone] 07/31/2022 Appointment Laboratory Medicine Angélica Granger P.A.-C. [address] [place] [phone] 08/14/2022 Appointment Laboratory Medicine Angélica Granger P.A.-C. [address] [place] [phone] 08/28/2022 Appointment Laboratory Medicine Angélica Granger P.A.-C. [address] [place] [phone] documented as of this encounter Visit Diagnoses Not on filedocumented in this encounter Additional Health Concerns Assessment Noted Time PHQ-9 Depression Total Score: 3 04/07/2013 9:47 AM CDT documented as of this encounter
--- OUTSIDE RECORDS SUMMARY | 2022-04-13 12:44 | XMS_ITS | Encounter Summary ---
:1955 Author Organization [facility] Address [address] [place] [address] Care Team Providers Name Role Phone Unavailable Primary Care Provider Unavailable Encounter Details Date Type Department Care Team Description 06/03/2013 Hospital Encounter HX RST TXS LIVER Michele Granger, P.A.-C. 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 Last Filed Vital Signs Vital Sign Reading Time Taken Comments Blood Pressure 115/68 06/03/2013 11:17 AM LEATHER TOOLER Pulse 60 06/03/2013 11:17 AM LEATHER TOOLER Temperature - - Respiratory Rate - - Oxygen Saturation - - Inhaled Oxygen Concentration - - Weight 81.6 kg (179 lb 14.3 oz) 06/03/2013 11:17 AM LEATHER TOOLER Height - - Body Mass Index 25.1 05/26/2013 11:24 AM LEATHER TOOLER documented in this encounter Medications at Time of Discharge Medication Sig Dispensed Refills Start Date End Date cholecalciferol (VITAMIN Take 1 capsule by 0 02/2105/24/2021 D3) 50 mcg (2,000 Unit) mouth daily. capsule documented as of this encounter Plan of Treatment Upcoming Encounters Date Type Specialty Care Team Description 04/24/2022 Appointment Laboratory Medicine Angélica Granger, P.A.-C. [address] [place] [phone] 04/25/2022 Office Visit Otorhinolaryngology Dex Matta APRN, C.N.P., M.S.N. [address] [place] [phone] 05/08/2022 Appointment Laboratory Medicine Angélica Granger P.A.-CDemetrius [address] [place] [phone] 05/08/2022 Clinical Admitting/Central Communication Scheduling 05/10/2022 Appointment Radiology Jeremie Rose M.D. [address] [place] [phone] 05/10/2022 Comprehensive Visit Orthopedic Surgery Warner Graves M.D. [address] [place] [phone] 05/22/2022 Appointment Laboratory Medicine Angélica Granger P.A.-C. [address] [place] [phone] 06/05/2022 Appointment Laboratory Medicine Angélica Granger P.A.-C. [address] [place] [phone] 06/19/2022 Appointment Laboratory Medicine Angélica Granger P.A.-C. [address] [place] [phone] 07/03/2022 Appointment Laboratory Medicine Angélica Granger P.A.-C. [address] [place] [phone] 07/17/2022 Appointment Laboratory Medicine Angélica Granger P.A.-C. [address] [place] [phone] 07/31/2022 Appointment Laboratory Medicine Angélica Granegr P.A.-C. [address] [place] [phone] 08/14/2022 Appointment Laboratory Medicine Angélica Granger P.A.-C. [address] [place] [phone] 08/28/2022 Appointment Laboratory Medicine Angélica Granger P.A.-C. [address] [place] [phone] documented as of this encounter Visit Diagnoses Not on filedocumented in this encounter Additional Health Concerns Assessment Noted Time PHQ-9 Depression Total Score: 3 04/07/2013 9:47 AM CDT documented as of this encounter
--- OUTSIDE RECORDS SUMMARY | 2022-04-13 12:44 | XMS_ITS | Encounter Summary ---
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 capsule documented as 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 [address] [place] [phone] 04/25/2022 Office Visit Otorhinolaryngology Dex Matta APRN, C.N.P., M.S.N. [address] [place] [phone] 05/08/2022 Appointment Laboratory Medicine Angélica Granger P.A.-CDemetrius [address] [place] [phone] 05/08/2022 Clinical Admitting/Central Communication Scheduling 05/10/2022 Appointment Radiology Jeremie Rose M.D. [address] [place] [phone] 05/10/2022 Comprehensive Visit Orthopedic Surgery Warner Graves M.D. [address] [place] [phone] 05/22/2022 Appointment Laboratory Medicine Angélica Granger P.A.-CDemetrius [address] [place] [address] [phone] 06/05/2022 Appointment Laboratory Medicine Angélica Granger P.A.-C. [address] [place] [phone] 06/19/2022 Appointment Laboratory Medicine Angélica Granger P.A.-C. [address] [place] [phone] 07/03/2022 Appointment Laboratory Medicine Angélica Granger P.A.-C. [address] [place] [phone] 07/17/2022 Appointment Laboratory Medicine Angélica Granger P.A.-C. [address] [place] [phone] 07/31/2022 Appointment Laboratory Medicine Angélica Granger P.A.-C. [address] [place] [phone] 08/14/2022 Appointment Laboratory Medicine Angélica Granger P.A.-C. [address] [place] [phone] 08/28/2022 Appointment Laboratory Medicine Angélica Granger P.A.-C. [address] [place] [phone] documented as of this encounter Visit Diagnoses Not on filedocumented in this encounter Additional Health Concerns Assessment Noted Time PHQ-9 Depression Total Score: 3 04/07/2013 9:47 AM CDT documented as of this encounter
--- OUTSIDE RECORDS SUMMARY | 2022-04-13 12:44 | XMS_ITS | Encounter Summary ---
:1955 Author Organization [facility] Address [address] [place] [address] Care Team Providers Name Role Phone Elsewhere, Pcp Primary Care Provider Unavailable Encounter Details Date Type Department Care Team Description 06/12/2013 Abstract 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 [address] [place] [phone] 04/25/2022 Office Visit Otorhinolaryngology Dex Matta APRN, C.N.P., M.S.N. [address] [place] [address] [phone] 05/08/2022 Appointment Laboratory Medicine Angélica Granger P.A.-C. [address] [place] [address] [phone] 05/08/2022 Clinical Admitting/Central Communication Scheduling 05/10/2022 Appointment Radiology Jeremie Rose M.D. [address] [place] [phone] 05/10/2022 Comprehensive Visit Orthopedic Surgery Warner Graves M.D. [address] [place] [address] [phone] 05/22/2022 Appointment Laboratory Medicine Angélica Granger P.A.-CDemetrius [address] [place] [address] [phone] 06/05/2022 Appointment Laboratory Medicine Angélica Granger P.A.-CDemetrius [address] [place] [address] [phone] 06/19/2022 Appointment Laboratory Medicine Angélica Granger P.A.-C. [address] [place] [phone] 07/03/2022 Appointment Laboratory Medicine Angélica Granger P.A.-C. [address] [place] [phone] 07/17/2022 Appointment Laboratory Medicine Angélica Granger P.A.-C. [address] [place] [phone] 07/31/2022 Appointment Laboratory Medicine Angélica Granger P.A.-C. [address] [place] [phone] 08/14/2022 Appointment Laboratory Medicine Angélica Granger P.A.-C. [address] [place] [phone] 08/28/2022 Appointment Laboratory Medicine Angélica Granger P.A.-C. [address] [place] [phone] documented as of this encounter Visit Diagnoses Not on filedocumented in this encounter Additional Health Concerns Infection Onset Date Last Indicated Resolved Time COVID19 Pending 12/13/2019 12/13/2019 12/14/2019 11:03 AM CDT COVID19 Pending 01/26/2020 01/27/2020 01/28/2020 12:12 AM CDT Assessment Noted Time PHQ-9 Depression Total Score: 3 04/07/2013 9:47 AM CDT documented as of this encounter Care Teams Free Lance Model Relationship Specialty Start Date End Date Elsewhere, Pcp PCP - General Family Medicine 07/29/17 [facility] - Laboratory Medicine 04/12/[address] [phone] documented as of this encounter
--- OUTSIDE RECORDS SUMMARY | 2022-04-13 12:44 | XMS_ITS | Encounter Summary ---
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 capsule documented as 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 [address] [place] [phone] 04/25/2022 Office Visit Otorhinolaryngology Dex Matta APRN, C.N.P., M.S.N. [address] [place] [phone] 05/08/2022 Appointment Laboratory Medicine Angélica Granger P.A.-CDemetrius [address] [place] [phone] 05/08/2022 Clinical Admitting/Central Communication Scheduling 05/10/2022 Appointment Radiology Jeremie Rose M.D. [address] [place] [phone] 05/10/2022 Comprehensive Visit Orthopedic Surgery Warner Graves M.D. [address] [place] [phone] 05/22/2022 Appointment Laboratory Medicine Angélica Granger P.A.-CDemetrius [address] [place] [address] [phone] 06/05/2022 Appointment Laboratory Medicine Angélica Granger P.A.-C. [address] [place] [phone] 06/19/2022 Appointment Laboratory Medicine Angélica Granger P.A.-C. [address] [place] [phone] 07/03/2022 Appointment Laboratory Medicine Angélica Granger P.A.-C. [address] [place] [phone] 07/17/2022 Appointment Laboratory Medicine Angélica Granger P.A.-C. [address] [place] [phone] 07/31/2022 Appointment Laboratory Medicine Angélica Granger P.A.-C. [address] [place] [phone] 08/14/2022 Appointment Laboratory Medicine Angélica Granger P.A.-C. [address] [place] [phone] 08/28/2022 Appointment Laboratory Medicine Angélica Granger P.A.-C. [address] [place] [phone] documented as of this encounter Visit Diagnoses Not on filedocumented in this encounter Additional Health Concerns Assessment Noted Time PHQ-9 Depression Total Score: 3 04/07/2013 9:47 AM CDT documented as of this encounter
--- OUTSIDE RECORDS SUMMARY | 2022-04-13 12:44 | XMS_ITS | Encounter Summary ---
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 capsule documented as 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 [address] [place] [phone] 04/25/2022 Office Visit Otorhinolaryngology Dex Matta APRN, C.N.P., M.S.N. [address] [place] [phone] 05/08/2022 Appointment Laboratory Medicine Angélica Granger P.A.-CDemetrius [address] [place] [phone] 05/08/2022 Clinical Admitting/Central Communication Scheduling 05/10/2022 Appointment Radiology Jeremie Rose M.D. [address] [place] [phone] 05/10/2022 Comprehensive Visit Orthopedic Surgery Warner Graves M.D. [address] [place] [phone] 05/22/2022 Appointment Laboratory Medicine Angélica Granger P.A.-CDemetrius [address] [place] [address] [phone] 06/05/2022 Appointment Laboratory Medicine Angélica Granger P.A.-C. [address] [place] [phone] 06/19/2022 Appointment Laboratory Medicine Angélica Granger P.A.-C. [address] [place] [phone] 07/03/2022 Appointment Laboratory Medicine Angélica Granger P.A.-C. [address] [place] [phone] 07/17/2022 Appointment Laboratory Medicine Angélica Granger P.A.-C. [address] [place] [phone] 07/31/2022 Appointment Laboratory Medicine Angélica Granger P.A.-C. [address] [place] [phone] 08/14/2022 Appointment Laboratory Medicine Angélica Granger P.A.-C. [address] [place] [phone] 08/28/2022 Appointment Laboratory Medicine Angélica Granger P.A.-C. [address] [place] [phone] documented as of this encounter Visit Diagnoses Not on filedocumented in this encounter Additional Health Concerns Assessment Noted Time PHQ-9 Depression Total Score: 3 04/07/2013 9:47 AM CDT documented as of this encounter
--- OUTSIDE RECORDS SUMMARY | 2022-04-13 12:44 | XMS_ITS | Encounter Summary ---
:1955 Author Organization [facility] Address [address] [place] [address] Care Team Providers Name Role Phone Unavailable Primary Care Provider Unavailable Encounter Details Date Type Department Care Team Description 05/19/2013 Hospital Encounter HX NO MAPPING Leena Wayne M.B., Ch.B. 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 capsule documented as 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 [address] [place] [phone] 04/25/2022 Office Visit Otorhinolaryngology Dex Matta APRN, C.N.P., M.S.N. [address] [place] [phone] 05/08/2022 Appointment Laboratory Medicine Angélica Granger P.A.-CDemetrius [address] [place] [phone] 05/08/2022 Clinical Admitting/Central Communication Scheduling 05/10/2022 Appointment Radiology Jeremie Rose M.D. [address] [place] [phone] 05/10/2022 Comprehensive Visit Orthopedic Surgery Warner Graves M.D. [address] [place] [phone] 05/22/2022 Appointment Laboratory Medicine Angélica Granger P.A.-CDemetrius [address] [place] [phone] 06/05/2022 Appointment Laboratory Medicine Angélica Granger P.A.-C. [address] [place] [phone] 06/19/2022 Appointment Laboratory Medicine Angélica Granger P.A.-C. [address] [place] [phone] 07/03/2022 Appointment Laboratory Medicine Angélica Granger P.A.-C. [address] [place] [address] [phone] 07/17/2022 Appointment Laboratory Medicine Angélica Granger P.A.-C. [address] [place] [address] [phone] 07/31/2022 Appointment Laboratory Medicine Angélica Granger P.A.-C. [address] [place] [address] [phone] 08/14/2022 Appointment Laboratory Medicine Angélica Granger P.A.-C. [address] [place] [address] [phone] 08/28/2022 Appointment Laboratory Medicine Angélica Granger P.A.-C. [address] [place] [address] [phone] documented as of this encounter Visit Diagnoses Not on filedocumented in this encounter Additional Health Concerns Assessment Noted Time PHQ-9 Depression Total Score: 3 04/07/2013 9:47 AM CDT documented as of this encounter
--- OUTSIDE RECORDS SUMMARY | 2022-04-13 12:44 | XMS_ITS | Encounter Summary ---
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 capsule documented as 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 [address] [place] [phone] 04/25/2022 Office Visit Otorhinolaryngology Dex Matta APRN, C.N.P., M.S.N. [address] [place] [phone] 05/08/2022 Appointment Laboratory Medicine Angélica Granger P.A.-CDemetrius [address] [place] [phone] 05/08/2022 Clinical Admitting/Central Communication Scheduling 05/10/2022 Appointment Radiology Jeremie Rose M.D. [address] [place] [phone] 05/10/2022 Comprehensive Visit Orthopedic Surgery Warner Graves M.D. [address] [place] [phone] 05/22/2022 Appointment Laboratory Medicine Angélica Granger P.A.-CDemetrius [address] [place] [address] [phone] 06/05/2022 Appointment Laboratory Medicine Angélica Granger P.A.-C. [address] [place] [phone] 06/19/2022 Appointment Laboratory Medicine Angélica Granger P.A.-C. [address] [place] [phone] 07/03/2022 Appointment Laboratory Medicine Angélica Granger P.A.-C. [address] [place] [phone] 07/17/2022 Appointment Laboratory Medicine Angélica Granger P.A.-C. [address] [place] [phone] 07/31/2022 Appointment Laboratory Medicine Angélica Granger P.A.-C. [address] [place] [phone] 08/14/2022 Appointment Laboratory Medicine Angélica Granger P.A.-C. [address] [place] [phone] 08/28/2022 Appointment Laboratory Medicine Angélica Granger P.A.-C. [address] [place] [phone] documented as of this encounter Visit Diagnoses Not on filedocumented in this encounter Additional Health Concerns Assessment Noted Time PHQ-9 Depression Total Score: 3 04/07/2013 9:47 AM CDT documented as of this encounter
--- OUTSIDE RECORDS SUMMARY | 2022-04-13 12:44 | XMS_ITS | Encounter Summary ---
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 capsule documented as of this encounter Plan of Treatment Upcoming Encounters Date Type Specialty Care Team Description 04/24/2022 Appointment Laboratory Medicine Angélica Granger P.A.-C. [address] [place] [phone] 04/25/2022 Office Visit Otorhinolaryngology Dex Matta APRN, C.N.P., M.S.N. [address] [place] [phone] 05/08/2022 Appointment Laboratory Medicine Angélica Granger P.A.-CDemetrius [address] [place] [phone] 05/08/2022 Clinical Admitting/Central Communication Scheduling 05/10/2022 Appointment Radiology Jeremie Rose M.D. [address] [place] [phone] 05/10/2022 Comprehensive Visit Orthopedic Surgery Warner Graves M.D. [address] [place] [phone] 05/22/2022 Appointment Laboratory Medicine Angélica Granger P.A.-CDemetrius [address] [place] [address] [phone] 06/05/2022 Appointment Laboratory Medicine Angélica Granger P.A.-C. [address] [place] [phone] 06/19/2022 Appointment Laboratory Medicine Angélica Granger P.A.-C. [address] [place] [phone] 07/03/2022 Appointment Laboratory Medicine Angélica Granger P.A.-C. [address] [place] [phone] 07/17/2022 Appointment Laboratory Medicine Angélica Granger P.A.-C. [address] [place] [phone] 07/31/2022 Appointment Laboratory Medicine Angélica Granger P.A.-C. [address] [place] [phone] 08/14/2022 Appointment Laboratory Medicine Angélica Granger P.A.-C. [address] [place] [phone] 08/28/2022 Appointment Laboratory Medicine Angélica Granger P.A.-C. [address] [place] [phone] documented as of this encounter Visit Diagnoses Not on filedocumented in this encounter Additional Health Concerns Assessment Noted Time PHQ-9 Depression Total Score: 3 04/07/2013 9:47 AM CDT documented as of this encounter
--- OUTSIDE RECORDS SUMMARY | 2022-04-13 12:44 | XMS_ITS | Encounter Summary ---
:1955 Author Organization [facility] Address [address] [place] [address] Care Team Providers Name Role Phone Unavailable Primary Care Provider Unavailable Encounter Details Date Type Department Care Team Description 04/22/2013 - Hospital Encounter HX RST INFUSION Anna Dean, 04/29/2013 THERAPY R.N. 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 [address] [place] [phone] 04/25/2022 Office Visit Otorhinolaryngology Dex Matta APRN, C.N.P., M.S.N. [address] [place] [address] [phone] 05/08/2022 Appointment Laboratory Medicine Angélica Granger, P.A.-C. [address] [place] [phone] 05/08/2022 Clinical Admitting/Central Communication Scheduling 05/10/2022 Appointment Radiology Jeremie Rose M.D. [address] [place] [phone] 05/10/2022 Comprehensive Visit Orthopedic Surgery Warner Graves M.D. [address] [place] [address] [phone] 05/22/2022 Appointment Laboratory Medicine Angélica Granger P.A.-C. [address] [place] [address] [phone] 06/05/2022 Appointment Laboratory Medicine Angélica Granger P.A.-C. [address] [place] [phone] 06/19/2022 Appointment Laboratory Medicine Angélica Granger P.A.-C. [address] [place] [phone] 07/03/2022 Appointment Laboratory Medicine Angélica Granger P.A.-C. [address] [place] [phone] 07/17/2022 Appointment Laboratory Medicine Angélica Granger P.A.-C. [address] [place] [phone] 07/31/2022 Appointment Laboratory Medicine Angélica Granger P.A.-C. [address] [place] [phone] 08/14/2022 Appointment Laboratory Angélica Royal P.A.-C. [address] [place] [phone] 08/28/2022 Appointment Laboratory Medicine Angélica Granger P.A.-C. [address] [place] [phone] documented as of this encounter Visit Diagnoses Not on filedocumented in this encounter Additional Health Concerns Assessment Noted Time PHQ-9 Depression Total Score: 3 04/07/2013 9:47 AM CDT documented as of this encounter
--- OUTSIDE RECORDS SUMMARY | 2022-04-13 12:44 | XMS_ITS | Encounter Summary ---
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 capsule documented as of this encounter Plan of Treatment Upcoming Encounters Date Type Specialty Care Team Description 04/24/2022 Appointment Laboratory Medicine Angélica Granger P.A.-C. [address] [place] [phone] 04/25/2022 Office Visit Otorhinolaryngology Dex Matta APRN, C.N.P., M.S.N. [address] [place] [phone] 05/08/2022 Appointment Laboratory Medicine Angélica Granger P.A.-CDemetrius [address] [place] [phone] 05/08/2022 Clinical Admitting/Central Communication Scheduling 05/10/2022 Appointment Radiology Jeremie Rose M.D. [address] [place] [phone] 05/10/2022 Comprehensive Visit Orthopedic Surgery Warner Graves M.D. [address] [place] [phone] 05/22/2022 Appointment Laboratory Medicine Angélica Granger P.A.-CDemetrius [address] [place] [address] [phone] 06/05/2022 Appointment Laboratory Medicine Angélica Granger P.A.-C. [address] [place] [phone] 06/19/2022 Appointment Laboratory Medicine Angélica Granger P.A.-C. [address] [place] [phone] 07/03/2022 Appointment Laboratory Medicine Angélica Granger P.A.-C. [address] [place] [phone] 07/17/2022 Appointment Laboratory Medicine Angélica Granger P.A.-C. [address] [place] [phone] 07/31/2022 Appointment Laboratory Medicine Angélica Granger P.A.-C. [address] [place] [phone] 08/14/2022 Appointment Laboratory Medicine Angéliac Granger P.A.-C. [address] [place] [phone] 08/28/2022 Appointment Laboratory Medicine Angélica Granger P.A.-C. [address] [place] [phone] documented as of this encounter Visit Diagnoses Not on filedocumented in this encounter Additional Health Concerns Assessment Noted Time PHQ-9 Depression Total Score: 3 04/07/2013 9:47 AM CDT documented as of this encounter
--- OUTSIDE RECORDS SUMMARY | 2022-04-13 12:44 | XMS_ITS | Encounter Summary ---
:1955 Author Organization [facility] Address [address] [place] [address] Care Team Providers Name Role Phone Unavailable Primary Care Provider Unavailable Encounter Details Date Type Department Care Team Description 05/24/2013 Hospital Encounter HX NO MAPPING Sera Phillips R.N ., C.C.T.C. 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 capsule documented as of this encounter Plan of Treatment Upcoming Encounters Date Type Specialty Care Team Description 04/24/2022 Appointment Laboratory Medicine Angélica Granger P.A.-C. [address] [place] [phone] 04/25/2022 Office Visit Otorhinolaryngology Dex Matta, RAMONA, C.N.P., M.S.N. [address] [place] [phone] 05/08/2022 Appointment Laboratory Medicine Angélica Granger P.A.-CDemetrius [address] [place] [phone] 05/08/2022 Clinical Admitting/Central Communication Scheduling 05/10/2022 Appointment Radiology Jeremie Rose M.D. [address] [place] [phone] 05/10/2022 Comprehensive Visit Orthopedic Surgery Warner Graves M.D. [address] [place] [address] [phone] 05/22/2022 Appointment Laboratory Medicine Angélica Granger P.A.-C. [address] [place] [address] [phone] 06/05/2022 Appointment Laboratory Medicine Angélica Granger P.A.-C. [address] [place] [phone] 06/19/2022 Appointment Laboratory Medicine Angélica Granger P.A.-C. [address] [place] [phone] 07/03/2022 Appointment Laboratory Medicine Angélica Granger P.A.-C. [address] [place] [phone] 07/17/2022 Appointment Laboratory Medicine Angélica Granger P.A.-C. [address] [place] [phone] 07/31/2022 Appointment Laboratory Medicine Angélica Granger P.A.-C. [address] [place] [phone] 08/14/2022 Appointment Laboratory Medicine Angélica Granger P.A.-C. [address] [place] [phone] 08/28/2022 Appointment Laboratory Medicine Angélica Granger P.A.-C. [address] [place] [phone] documented as of this encounter Visit Diagnoses Not on filedocumented in this encounter Additional Health Concerns Assessment Noted Time PHQ-9 Depression Total Score: 3 04/07/2013 9:47 AM CDT documented as of this encounter
--- OUTSIDE RECORDS SUMMARY | 2022-04-13 12:45 | XMS_ITS | Encounter Summary ---
:[address] [facility] Address [address] [place] [address] Care Team Providers Name Role Phone Unavailable Primary Care Provider Unavailable Encounter Details Date Type Department Care Team Description 04/15/2013 Hospital Encounter HX NO MAPPING Christelle Muñoz, Dorene Manzo, C.C.T.C. 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 capsule documented as of this encounter Plan of Treatment Upcoming Encounters Date Type Specialty Care Team Description 04/24/2022 Appointment Laboratory Medicine Angélica Granger P.A.-C. [address] [place] [phone] 04/25/2022 Office Visit Otorhinolaryngology Dex Matta, RAMONA, C.N.P., M.S.N. [address] [place] [phone] 05/08/2022 Appointment Laboratory Medicine Angélica Granger P.A.-CDemetrius [address] [place] [phone] 05/08/2022 Clinical Admitting/Central Communication Scheduling 05/10/2022 Appointment Radiology Jeremie Rose M.D. [address] [place] [phone] 05/10/2022 Comprehensive Visit Orthopedic Surgery Warner Graves M.D. [address] [place] [address] [phone] 05/22/2022 Appointment Laboratory Medicine Angélica Granger P.A.-C. [address] [place] [address] [phone] 06/05/2022 Appointment Laboratory Medicine Angélica Granger P.A.-C. [address] [place] [phone] 06/19/2022 Appointment Laboratory Medicine Angélica Granger P.A.-C. [address] [place] [phone] 07/03/2022 Appointment Laboratory Medicine Angélica Granger P.A.-C. [address] [place] [phone] 07/17/2022 Appointment Laboratory Medicine Angélica Granger P.A.-C. [address] [place] [phone] 07/31/2022 Appointment Laboratory Medicine Angélica Granger P.A.-C. [address] [place] [phone] 08/14/2022 Appointment Laboratory Medicine Angélica Granger P.A.-C. [address] [place] [phone] 08/28/2022 Appointment Laboratory Medicine Angélica Granger P.A.-C. [address] [place] [phone] documented as of this encounter Visit Diagnoses Not on filedocumented in this encounter Additional Health Concerns Assessment Noted Time PHQ-9 Depression Total Score: 3 04/07/2013 9:47 AM CDT documented as of this encounter
--- OUTSIDE RECORDS SUMMARY | 2022-04-13 12:45 | XMS_ITS | Encounter Summary ---
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 capsule documented as of this encounter Plan of Treatment Upcoming Encounters Date Type Specialty Care Team Description 04/24/2022 Appointment Laboratory Medicine Angélica Granger P.A.-C. [address] [place] [phone] 04/25/2022 Office Visit Otorhinolaryngology Dex Matta APRN, C.N.P., M.S.N. [address] [place] [phone] 05/08/2022 Appointment Laboratory Medicine Angélica Granger P.A.-CDemetrius [address] [place] [phone] 05/08/2022 Clinical Admitting/Central Communication Scheduling 05/10/2022 Appointment Radiology Jeremie Rose M.D. [address] [place] [phone] 05/10/2022 Comprehensive Visit Orthopedic Surgery Warner Graves M.D. [address] [place] [phone] 05/22/2022 Appointment Laboratory Medicine Angélica Granger P.A.-CDemetrius [address] [place] [address] [phone] 06/05/2022 Appointment Laboratory Medicine Angélica Granger P.A.-C. [address] [place] [phone] 06/19/2022 Appointment Laboratory Medicine Angélica Granger P.A.-C. [address] [place] [phone] 07/03/2022 Appointment Laboratory Medicine Angélica Granger P.A.-C. [address] [place] [phone] 07/17/2022 Appointment Laboratory Medicine Angélica Granger P.A.-C. [address] [place] [phone] 07/31/2022 Appointment Laboratory Medicine Angélica Granger P.A.-C. [address] [place] [phone] 08/14/2022 Appointment Laboratory Medicine Angélica Granger P.A.-C. [address] [place] [phone] 08/28/2022 Appointment Laboratory Medicine Angélica Granger P.A.-C. [address] [place] [phone] documented as of this encounter Visit Diagnoses Not on filedocumented in this encounter Additional Health Concerns Assessment Noted Time PHQ-9 Depression Total Score: 3 04/07/2013 9:47 AM CDT documented as of this encounter
--- OUTSIDE RECORDS SUMMARY | 2022-04-13 12:45 | XMS_ITS | Encounter Summary ---
:1955 Author Organization [facility] Address [address] [place] [address] Care Team Providers Name Role Phone Unavailable Primary Care Provider Unavailable Encounter Details Date Type Department Care Team Description 10/27/2012 - Hospital Encounter HX RST INFUSION [facility], 11/03/2012 THERAPY Italo Azevedo R.N. [address] [place] [phone] Social History Tobacco Use Types Packs/Day Years Used Date Smoking Tobacco: Never Assessed Alcohol Habits Answer Date Recorded How often do you have a drink containing alcohol? Never 12/15/2021 How many drinks containing alcohol do you have on a typical Not asked day when you are drinking? How often do you have six or more drinks on one occasion? 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 [address] [place] [phone] 04/25/2022 Office Visit Otorhinolaryngology Dex Matta APRN, C.N.P., M.S.N. [address] [place] [address] [phone] 05/08/2022 Appointment Laboratory Medicine Angélica Granger P.A.-C. [address] [place] [address] [phone] 05/08/2022 Clinical Admitting/Central Communication Scheduling 05/10/2022 Appointment Radiology Jeremie Rose M.D. [address] [place] [phone] 05/10/2022 Comprehensive Visit Orthopedic Surgery Warner Graves M.D. [address] [place] [address] [phone] 05/22/2022 Appointment Laboratory Medicine Angélica Granger P.A.-CDemetrius [address] [place] [address] [phone] 06/05/2022 Appointment Laboratory Medicine Angélica Granger P.A.-CDemetrius [address] [place] [address] [phone] 06/19/2022 Appointment Laboratory Medicine Angélica Granger P.A.-C. [address] [place] [phone] 07/03/2022 Appointment Laboratory Medicine Angélica Granger P.A.-C. [address] [place] [phone] 07/17/2022 Appointment Laboratory Medicine Angélica Granger P.A.-C. [address] [place] [phone] 07/31/2022 Appointment Laboratory Medicine Angélica Granger P.A.-C. [address] [place] [phone] 08/14/2022 Appointment Laboratory Medicine nAgélica Granger P.A.-C. [address] [place] [phone] 08/28/2022 Appointment Laboratory Medicine Angélica Granger P.A.-C. 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
--- OUTSIDE RECORDS SUMMARY | 2022-04-13 12:45 | XMS_ITS | Encounter Summary ---
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 [address] [place] [phone] 04/25/2022 Office Visit Otorhinolaryngology Dex Matta APRN, C.N.P., M.S.N. [address] [place] [address] [phone] 05/08/2022 Appointment Laboratory Medicine Angélica Granger P.A.-C. [address] [place] [phone] 05/08/2022 Clinical Admitting/Central Communication Scheduling 05/10/2022 Appointment Radiology Jeremie Rose M.D. [address] [place] [phone] 05/10/2022 Comprehensive Visit Orthopedic Surgery Warner Graves M.D. [address] [place] [phone] 05/22/2022 Appointment Laboratory Medicine Angélica Granger P.A.-C. [address] [place] [phone] 06/05/2022 Appointment Laboratory Medicine Angélica Granger P.A.-C. [address] [place] [phone] 06/19/2022 Appointment Laboratory Medicine Angélica Granger P.A.-C. [address] [place] [phone] 07/03/2022 Appointment Laboratory Medicine Angélica Granger P.A.-C. [address] [place] [phone] 07/17/2022 Appointment Laboratory Medicine Angélica Granger P.A.-C. [address] [place] [phone] 07/31/2022 Appointment Laboratory Medicine Angélica Granger P.A.-C. [address] [place] [address] [phone] 08/14/2022 Appointment Laboratory Medicine Angélica Granger P.A.-C. [address] [place] [address] [phone] 08/28/2022 Appointment Laboratory Medicine Angélica Granger P.A.-C. 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
--- OUTSIDE RECORDS SUMMARY | 2022-04-13 12:45 | XMS_ITS | Encounter Summary ---
:1955 Author Organization [facility] Address [address] [place] [address] Care Team Providers Name Role Phone Unavailable Primary Care Provider Unavailable Encounter Details Date Type Department Care Team Description 11/13/2012 Hospital Encounter HX NO MAPPING Social History [...] or more drinks on one occasion? 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 [address] [place] [phone] 04/25/2022 Office Visit Otorhinolaryngology Dex Matta APRN, C.N.P., M.S.N. [address] [place] [address] [phone] 05/08/2022 Appointment Laboratory Medicine Angélica Granger P.A.-C. [address] [place] [phone] 05/08/2022 Clinical Admitting/Central Communication Scheduling 05/10/2022 Appointment Radiology Jeremie Rose M.D. [address] [place] [phone] 05/10/2022 Comprehensive Visit Orthopedic Surgery Warner Graves M.D. [address] [place] [phone] 05/22/2022 Appointment Laboratory Medicine Angélica Granger P.A.-C. [address] [place] [phone] 06/05/2022 Appointment Laboratory Medicine Angélica Granger P.A.-C. [address] [place] [phone] 06/19/2022 Appointment Laboratory Medicine Angélica Granger P.A.-C. [address] [place] [phone] 07/03/2022 Appointment Laboratory Medicine Angélica Granger P.A.-C. [address] [place] [phone] 07/17/2022 Appointment Laboratory Medicine Angélica Granger P.A.-C. [address] [place] [phone] 07/31/2022 Appointment Laboratory Medicine Angélica Granger P.A.-C. [address] [place] [address] [phone] 08/14/2022 Appointment Laboratory Medicine Angélica Granger P.A.-C. [address] [place] [address] [phone] 08/28/2022 Appointment Laboratory Medicine Angélica Granger P.A.-C. 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
--- OUTSIDE RECORDS SUMMARY | 2022-04-13 12:45 | XMS_ITS | Encounter Summary ---
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 [address] [place] [phone] 04/25/2022 Office Visit Otorhinolaryngology Dex Matta APRN, C.N.P., M.S.N. [address] [place] [address] [phone] 05/08/2022 Appointment Laboratory Medicine Angélica Granger P.A.-C. [address] [place] [phone] 05/08/2022 Clinical Admitting/Central Communication Scheduling 05/10/2022 Appointment Radiology Jeremie Rose M.D. [address] [place] [phone] 05/10/2022 Comprehensive Visit Orthopedic Surgery Warner Graves M.D. [address] [place] [phone] 05/22/2022 Appointment Laboratory Medicine Angélica Granger P.A.-C. [address] [place] [phone] 06/05/2022 Appointment Laboratory Medicine Angélica Granger P.A.-C. [address] [place] [phone] 06/19/2022 Appointment Laboratory Medicine Angélica Granger P.A.-C. [address] [place] [phone] 07/03/2022 Appointment Laboratory Medicine Angélica Granger P.A.-C. [address] [place] [phone] 07/17/2022 Appointment Laboratory Medicine Angélica Granger P.A.-C. [address] [place] [phone] 07/31/2022 Appointment Laboratory Medicine Angélica Granger P.A.-C. [address] [place] [address] [phone] 08/14/2022 Appointment Laboratory Medicine Angélica Granger P.A.-C. [address] [place] [address] [phone] 08/28/2022 Appointment Laboratory Medicine Angélica Granger P.A.-C. 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
--- OUTSIDE RECORDS SUMMARY | 2022-04-13 12:45 | XMS_ITS | Encounter Summary ---
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 [address] [place] [phone] 04/25/2022 Office Visit Otorhinolaryngology Dex Matta APRN, C.N.P., M.S.N. [address] [place] [phone] 05/08/2022 Appointment Laboratory Medicine Angélica Granger P.A.-C. [address] [place] [phone] 05/08/2022 Clinical Admitting/Central Communication Scheduling 05/10/2022 Appointment Radiology Jeremie Rose M.D. [address] [place] [phone] 05/10/2022 Comprehensive Visit Orthopedic Surgery Warner Graves M.D. [address] [place] [phone] 05/22/2022 Appointment Laboratory Medicine Angélica Granger P.A.-C. [address] [place] [phone] 06/05/2022 Appointment Laboratory Medicine Angélica Granger P.A.-C. [address] [place] [phone] 06/19/2022 Appointment Laboratory Medicine Angélica Granger P.A.-C. [address] [place] [phone] 07/03/2022 Appointment Laboratory Medicine Angélica Granger P.A.-C. [address] [place] [phone] 07/17/2022 Appointment Laboratory Medicine Angélica Granger P.A.-C. [address] [place] [phone] 07/31/2022 Appointment Laboratory Medicine Angélica Granger P.A.-C. [address] [place] [phone] 08/14/2022 Appointment Laboratory Medicine Angélica Granger P.A.-C. [address] [place] [phone] 08/28/2022 Appointment Laboratory Medicine Angélica Granger P.A.-C. [address] [place] [phone] documented as of this encounter Visit Diagnoses Not on filedocumented in this encounter Additional Health Concerns Assessment Noted Time PHQ-9 Depression Total Score: 8 12/04/2012 1:05 PM CDT documented as of this encounter
--- OUTSIDE RECORDS SUMMARY | 2022-04-13 12:45 | XMS_ITS | Encounter Summary ---
:1955 Author Organization [facility] Address [address] [place] [address] Care Team Providers Name Role Phone Unavailable Primary Care Provider Unavailable Encounter Details Date Type Department Care Team Description 04/07/2013 Hospital Encounter HX NO MAPPING Karla Stevens M.S., R.N., C.C.T.C. 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 capsule documented as of this encounter Plan of Treatment Upcoming Encounters Date Type Specialty Care Team Description 04/24/2022 Appointment Laboratory Medicine Angélica Granger P.A.-CDemetrius [address] [place] [phone] 04/25/2022 Office Visit Otorhinolaryngology Dex Matta APRN, C.N.P., M.S.N. [address] [place] [address] [phone] 05/08/2022 Appointment Laboratory Medicine Angélica Granger P.ADemetrius-CDemetrius [address] [place] [phone] 05/08/2022 Clinical Admitting/Central Communication Scheduling 05/10/2022 Appointment Radiology Jeremie Rose M.D. [address] [place] [phone] 05/10/2022 Comprehensive Visit Orthopedic Surgery Warner Graves M.D. [address] [place] [address] [phone] 05/22/2022 Appointment Laboratory Medicine Angélica Granger P.A.-CDemetrius [address] [place] [phone] 06/05/2022 Appointment Laboratory Medicine Angélica Granger P.A.-CDemetrius [address] [place] [phone] 06/19/2022 Appointment Laboratory Medicine Angélica Granger P.A.-C. [address] [place] [address] [phone] 07/03/2022 Appointment Laboratory Medicine Angélica Granger P.A.-C. [address] [place] [phone] 07/17/2022 Appointment Laboratory Medicine Angélica Granger P.A.-C. [address] [place] [address] [phone] 07/31/2022 Appointment Laboratory Medicine Angélica Granger P.A.-C. [address] [place] [address] [phone] 08/14/2022 Appointment Laboratory Medicine Angélica Granger P.A.-C. [address] [place] [address] [phone] 08/28/2022 Appointment Laboratory Medicine Angélica Granger P.A.-C. [address] [place] [phone] documented as of this encounter Visit Diagnoses Not on filedocumented in this encounter Additional Health Concerns Assessment Noted Time PHQ-9 Depression Total Score: 3 04/07/2013 9:47 AM CDT documented as of this encounter
--- OUTSIDE RECORDS SUMMARY | 2022-04-13 12:45 | XMS_ITS | Encounter Summary ---
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 capsule documented as of this encounter Plan of Treatment Upcoming Encounters Date Type Specialty Care Team Description 04/24/2022 Appointment Laboratory Medicine Angélica Granger P.A.-C. [address] [place] [phone] 04/25/2022 Office Visit Otorhinolaryngology Dex Matat APRN, C.N.P., M.S.N. [address] [place] [phone] 05/08/2022 Appointment Laboratory Medicine Angélica Granger P.A.-CDemetrius [address] [place] [phone] 05/08/2022 Clinical Admitting/Central Communication Scheduling 05/10/2022 Appointment Radiology Jeremie Rose M.D. [address] [place] [phone] 05/10/2022 Comprehensive Visit Orthopedic Surgery Warner Graves M.D. [address] [place] [phone] 05/22/2022 Appointment Laboratory Medicine Angélica Granger P.A.-CDemetrius [address] [place] [address] [phone] 06/05/2022 Appointment Laboratory Medicine Angélica Granger P.A.-C. [address] [place] [phone] 06/19/2022 Appointment Laboratory Medicine Angélica Granger P.A.-C. [address] [place] [phone] 07/03/2022 Appointment Laboratory Medicine Angélica Granger P.A.-C. [address] [place] [phone] 07/17/2022 Appointment Laboratory Medicine Angélica Granger P.A.-C. [address] [place] [phone] 07/31/2022 Appointment Laboratory Medicine Angélica Granger P.A.-C. [address] [place] [phone] 08/14/2022 Appointment Laboratory Medicine Angélica Granger P.A.-C. [address] [place] [phone] 08/28/2022 Appointment Laboratory Medicine Angélica Granger P.A.-C. [address] [place] [phone] documented as of this encounter Visit Diagnoses Not on filedocumented in this encounter Additional Health Concerns Assessment Noted Time PHQ-9 Depression Total Score: 3 04/07/2013 9:47 AM CDT documented as of this encounter
--- OUTSIDE RECORDS SUMMARY | 2022-04-13 12:45 | XMS_ITS | Encounter Summary ---
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 [address] [place] [address] [phone] 04/25/2022 Office Visit Otorhinolaryngology Dex Matta APRN, C.N.P., M.S.N. [address] [place] [address] [phone] 05/08/2022 Appointment Laboratory Medicine Angélica Granger, P.A.-C. [address] [place] [address] [phone] 05/08/2022 Clinical Admitting/Central Communication Scheduling 05/10/2022 Appointment Radiology Jeremie Rose M.D. [address] [place] [address] [phone] 05/10/2022 Comprehensive Visit Orthopedic Surgery Warner Graves M.D. [address] [place] [phone] 05/22/2022 Appointment Laboratory Medicine Angélica Granger P.A.-C. [address] [place] [phone] 06/05/2022 Appointment Laboratory Medicine Angélica Granger P.A.-C. [address] [place] [phone] 06/19/2022 Appointment Laboratory Medicine Angélica Granger P.A.-C. [address] [place] [phone] 07/03/2022 Appointment Laboratory Medicine Angélica Granger P.A.-C. [address] [place] [phone] 07/17/2022 Appointment Laboratory Medicine Angélica Granger P.A.-C. [address] [place] [phone] 07/31/2022 Appointment Laboratory Medicine Angélica Granger P.A.-C. [address] [place] [phone] 08/14/2022 Appointment Laboratory Angélica Royal P.A.-C. [address] [place] [phone] 08/28/2022 Appointment Laboratory Medicine Angélica Granger P.A.-C. [address] [place] [phone] documented as of this encounter Visit Diagnoses Not on filedocumented in this encounter Additional Health Concerns Assessment Noted Time PHQ-9 Depression Total Score: 3 04/07/2013 9:47 AM CDT documented as of this encounter
--- OUTSIDE RECORDS SUMMARY | 2022-04-13 12:45 | XMS_ITS | Encounter Summary ---
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 [address] [place] [phone] 04/25/2022 Office Visit Otorhinolaryngology Dex Matta APRN, C.N.P., M.S.N. [address] [place] [address] [phone] 05/08/2022 Appointment Laboratory Medicine Angélica Granger P.A.-C. [address] [place] [phone] 05/08/2022 Clinical Admitting/Central Communication Scheduling 05/10/2022 Appointment Radiology Jeremie Rose M.D. [address] [place] [phone] 05/10/2022 Comprehensive Visit Orthopedic Surgery Warner Graves M.D. [address] [place] [phone] 05/22/2022 Appointment Laboratory Medicine Angélica Granger P.A.-C. [address] [place] [phone] 06/05/2022 Appointment Laboratory Medicine Angélica Granger P.A.-C. [address] [place] [phone] 06/19/2022 Appointment Laboratory Medicine Angélica Granger P.A.-C. [address] [place] [phone] 07/03/2022 Appointment Laboratory Medicine Angélica Granger P.A.-C. [address] [place] [phone] 07/17/2022 Appointment Laboratory Medicine Angélica Granger P.A.-C. [address] [place] [phone] 07/31/2022 Appointment Laboratory Medicine Angélica Granger P.A.-C. [address] [place] [phone] 08/14/2022 Appointment Laboratory Medicine Angélica Granger P.A.-C. [address] [place] [phone] 08/28/2022 Appointment Laboratory Medicine Angélica Granger P.A.-C. [address] [place] [phone] documented as of this encounter Visit Diagnoses Not on filedocumented in this encounter Additional Health Concerns Assessment Noted Time PHQ-9 Depression Total Score: 3 02/05/2013 8:01 AM CDT documented as of this encounter
--- OUTSIDE RECORDS SUMMARY | 2022-04-13 12:45 | XMS_ITS | Encounter Summary ---
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 capsule documented as of this encounter Plan of Treatment Upcoming Encounters Date Type Specialty Care Team Description 04/24/2022 Appointment Laboratory Medicine Angélica Granger P.A.-C. [address] [place] [phone] 04/25/2022 Office Visit Otorhinolaryngology Dex Matta APRN, C.N.P., M.S.N. [address] [place] [phone] 05/08/2022 Appointment Laboratory Medicine Angélica Granger P.A.-CDemetrius [address] [place] [phone] 05/08/2022 Clinical Admitting/Central Communication Scheduling 05/10/2022 Appointment Radiology Jeremie Rose M.D. [address] [place] [phone] 05/10/2022 Comprehensive Visit Orthopedic Surgery Warner Graves M.D. [address] [place] [phone] 05/22/2022 Appointment Laboratory Medicine Angélica Granger P.A.-CDemetrius [address] [place] [address] [phone] 06/05/2022 Appointment Laboratory Medicine Angélica Granger P.A.-C. [address] [place] [phone] 06/19/2022 Appointment Laboratory Medicine Angélica Granger P.A.-C. [address] [place] [phone] 07/03/2022 Appointment Laboratory Medicine Angélica Granger P.A.-C. [address] [place] [phone] 07/17/2022 Appointment Laboratory Medicine Angélica Granger P.A.-C. [address] [place] [phone] 07/31/2022 Appointment Laboratory Medicine Angélica Granger P.A.-C. [address] [place] [phone] 08/14/2022 Appointment Laboratory Medicine Angélica Granger P.A.-C. [address] [place] [phone] 08/28/2022 Appointment Laboratory Medicine Angélica Granger P.A.-C. [address] [place] [phone] documented as of this encounter Visit Diagnoses Not on filedocumented in this encounter Additional Health Concerns Assessment Noted Time PHQ-9 Depression Total Score: 3 04/07/2013 9:47 AM CDT documented as of this encounter
--- OUTSIDE RECORDS SUMMARY | 2022-04-13 12:45 | XMS_ITS | Encounter Summary ---
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 [address] [place] [phone] 04/25/2022 Office Visit Otorhinolaryngology Dex Matta APRN, C.N.P., M.S.N. [address] [place] [address] [phone] 05/08/2022 Appointment Laboratory Medicine Angélica Granger P.A.-C. [address] [place] [address] [phone] 05/08/2022 Clinical Admitting/Central Communication Scheduling 05/10/2022 Appointment Radiology Jeremie Rose M.D. [address] [place] [phone] 05/10/2022 Comprehensive Visit Orthopedic Surgery Warner Graves M.D. [address] [place] [address] [phone] 05/22/2022 Appointment Laboratory Medicine Angélica Granger P.A.-CDemetrius [address] [place] [address] [phone] 06/05/2022 Appointment Laboratory Medicine Angélica Granger P.A.-CDemetrius [address] [place] [address] [phone] 06/19/2022 Appointment Laboratory Medicine Angélica Granger P.A.-C. [address] [place] [phone] 07/03/2022 Appointment Laboratory Medicine Angélica Granger P.A.-C. [address] [place] [phone] 07/17/2022 Appointment Laboratory Medicine Angélica Granger P.A.-C. [address] [place] [phone] 07/31/2022 Appointment Laboratory Medicine Angélica Granger P.A.-C. [address] [place] [phone] 08/14/2022 Appointment Laboratory Angélica Royal P.A.-C. [address] [place] [phone] 08/28/2022 Appointment Laboratory Medicine Angélica Granger P.A.-C. 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
--- OUTSIDE RECORDS SUMMARY | 2022-04-13 12:45 | XMS_ITS | Encounter Summary ---
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 [address] [place] [phone] 04/25/2022 Office Visit Otorhinolaryngology Dex Matta APRN, C.N.P., M.S.N. [address] [place] [address] [phone] 05/08/2022 Appointment Laboratory Medicine Angélica Granger P.A.-C. [address] [place] [phone] 05/08/2022 Clinical Admitting/Central Communication Scheduling 05/10/2022 Appointment Radiology Jeremie Rose M.D. [address] [place] [phone] 05/10/2022 Comprehensive Visit Orthopedic Surgery Warner Graves M.D. [address] [place] [phone] 05/22/2022 Appointment Laboratory Medicine Angélica Granger P.A.-C. [address] [place] [phone] 06/05/2022 Appointment Laboratory Medicine Angélica Granger P.A.-C. [address] [place] [phone] 06/19/2022 Appointment Laboratory Medicine Angélica Granger P.A.-C. [address] [place] [phone] 07/03/2022 Appointment Laboratory Medicine Angélica Granger P.A.-C. [address] [place] [phone] 07/17/2022 Appointment Laboratory Medicine Angélica Granger P.A.-C. [address] [place] [phone] 07/31/2022 Appointment Laboratory Medicine Angélica Granger P.A.-C. [address] [place] [address] [phone] 08/14/2022 Appointment Laboratory Medicine Angélica Granger P.A.-C. [address] [place] [address] [phone] 08/28/2022 Appointment Laboratory Medicine Angélica Granger P.A.-C. 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
--- OUTSIDE RECORDS SUMMARY | 2022-04-13 12:45 | XMS_ITS | Encounter Summary ---
:1955 Author Organization [facility] Address [address] [place] [address] Care Team Providers Name Role Phone Unavailable Primary Care Provider Unavailable Encounter Details Date Type Department Care Team Description 02/25/2013 Hospital Encounter HX NO MAPPING Clare Maloney M, R.N. 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 [address] [place] [phone] 04/25/2022 Office Visit Otorhinolaryngology Dex Matta, RAMONA, C.N.P., M.S.N. [address] [place] [address] [phone] 05/08/2022 Appointment Laboratory Medicine Angélica Granger P.A.-C. [address] [place] [address] [phone] 05/08/2022 Clinical Admitting/Central Communication Scheduling 05/10/2022 Appointment Radiology Jeremie Rose M.D. [address] [place] [phone] 05/10/2022 Comprehensive Visit Orthopedic Surgery Warner Graves M.D. [address] [place] [phone] 05/22/2022 Appointment Laboratory Medicine Angélica Granger P.A.-C. [address] [place] [address] [phone] 06/05/2022 Appointment Laboratory Medicine Angélica Granger P.A.-C. [address] [place] [address] [phone] 06/19/2022 Appointment Laboratory Medicine Angélica Granger P.A.-C. [address] [place] [phone] 07/03/2022 Appointment Laboratory Medicine Angélica Granger P.A.-C. [address] [place] [phone] 07/17/2022 Appointment Laboratory Medicine Angélica Granger P.A.-C. [address] [place] [phone] 07/31/2022 Appointment Laboratory Medicine Angélica Granger P.A.-C. [address] [place] [phone] 08/14/2022 Appointment Laboratory Medicine Angélica Granger P.A.-C. [address] [place] [phone] 08/28/2022 Appointment Laboratory Medicine Angélica Granger P.A.-C. [address] [place] [phone] documented as of this encounter Visit Diagnoses Not on filedocumented in this encounter Additional Health Concerns Assessment Noted Time PHQ-9 Depression Total Score: 3 02/05/2013 8:01 AM CDT documented as of this encounter
--- OUTSIDE RECORDS SUMMARY | 2022-04-13 12:45 | XMS_ITS | Encounter Summary ---
:1955 Author Organization [facility] Address [address] [place] [address] Care Team Providers Name Role Phone Unavailable Primary Care Provider Unavailable Encounter Details Date Type Department Care Team Description 11/05/2012 Hospital Encounter HX NO MAPPING Fe Garcia R.N., C.C.T.C. 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 [address] [place] [phone] 04/25/2022 Office Visit Otorhinolaryngology Dex Matta APRN, C.NDemetriusP., M.S.N. [address] [place] [phone] 05/08/2022 Appointment Laboratory Medicine Angélica Granger P.A.-C. [address] [place] [phone] 05/08/2022 Clinical Admitting/Central Communication Scheduling 05/10/2022 Appointment Radiology Jeremie Rose M.D. [address] [place] [phone] 05/10/2022 Comprehensive Visit Orthopedic Surgery Warner Graves M.D. [address] [place] [phone] 05/22/2022 Appointment Laboratory Medicine Angélica Granger P.A.-C. [address] [place] [phone] 06/05/2022 Appointment Laboratory Medicine Angélica Granger P.A.-C. [address] [place] [phone] 06/19/2022 Appointment Laboratory Medicine Angélica Granger P.A.-C. [address] [place] [address] [phone] 07/03/2022 Appointment Laboratory Medicine Angélica Granger P.A.-C. [address] [place] [address] [phone] 07/17/2022 Appointment Laboratory Medicine Angélica Granger P.A.-C. [address] [place] [phone] 07/31/2022 Appointment Laboratory Medicine Angélica Granger P.A.-C. [address] [place] [address] [phone] 08/14/2022 Appointment Laboratory Medicine Angélica Granger P.A.-C. [address] [place] [address] [phone] 08/28/2022 Appointment Laboratory Medicine Angélica Granger P.A.-C. 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
--- OUTSIDE RECORDS SUMMARY | 2022-04-13 12:45 | XMS_ITS | Encounter Summary ---
:1955 Author Organization [facility] Address [address] [place] [address] Care Team Providers Name Role Phone Unavailable Primary Care Provider Unavailable Encounter Details Date Type Department Care Team Description 04/06/2013 Hospital Encounter HX NO MAPPING Lina Rai, B.S.N. , R.N., C.C.T.C. 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 capsule documented as of this encounter Plan of Treatment Upcoming Encounters Date Type Specialty Care Team Description 04/24/2022 Appointment Laboratory Medicine Angélica Granger P.A.-CDemetrius [address] [place] [phone] 04/25/2022 Office Visit Otorhinolaryngology Dex Matta APRN, C.N.P., M.S.N. [address] [place] [phone] 05/08/2022 Appointment Laboratory Medicine Angélica Granger P.ADemetrius-CDemetrius [address] [place] [address] [phone] 05/08/2022 Clinical Admitting/Central Communication Scheduling 05/10/2022 Appointment Radiology Jeremie Rose M.D. [address] [place] [phone] 05/10/2022 Comprehensive Visit Orthopedic Surgery Warner Graves M.D. [address] [place] [phone] 05/22/2022 Appointment Laboratory Medicine Angélica Granger P.A.-CDemetrius [address] [place] [address] [phone] 06/05/2022 Appointment Laboratory Medicine Angélica Granger P.A.-CDemetrius [address] [place] [phone] 06/19/2022 Appointment Laboratory Medicine Angélica Granger P.A.-C. [address] [place] [phone] 07/03/2022 Appointment Laboratory Medicine Angélica Granger P.A.-C. [address] [place] [phone] 07/17/2022 Appointment Laboratory Medicine Angélica Granger P.A.-C. [address] [place] [address] [phone] 07/31/2022 Appointment Laboratory Medicine Angélica Granger P.A.-C. [address] [place] [phone] 08/14/2022 Appointment Laboratory Medicine Angélica Granger P.A.-C. [address] [place] [address] [phone] 08/28/2022 Appointment Laboratory Medicine Angélica Granger P.A.-C. [address] [place] [address] [phone] documented as of this encounter Visit Diagnoses Not on filedocumented in this encounter Additional Health Concerns Assessment Noted Time PHQ-9 Depression Total Score: 3 02/05/2013 8:01 AM CDT documented as of this encounter
--- OUTSIDE RECORDS SUMMARY | 2022-04-13 12:45 | XMS_ITS | Encounter Summary ---
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 capsule documented as of this encounter Plan of Treatment Upcoming Encounters Date Type Specialty Care Team Description 04/24/2022 Appointment Laboratory Medicine Angélica Granger P.A.-C. [address] [place] [phone] 04/25/2022 Office Visit Otorhinolaryngology Dex Matta APRN, C.N.P., M.S.N. [address] [place] [phone] 05/08/2022 Appointment Laboratory Medicine Angélica Granger P.A.-CDemetrius [address] [place] [phone] 05/08/2022 Clinical Admitting/Central Communication Scheduling 05/10/2022 Appointment Radiology Jeremie Rose M.D. [address] [place] [phone] 05/10/2022 Comprehensive Visit Orthopedic Surgery Warner Graves M.D. [address] [place] [phone] 05/22/2022 Appointment Laboratory Medicine Angélica Granger P.A.-CDemetrius [address] [place] [address] [phone] 06/05/2022 Appointment Laboratory Medicine Angélica Granger P.A.-C. [address] [place] [phone] 06/19/2022 Appointment Laboratory Medicine Angélica Granger P.A.-C. [address] [place] [phone] 07/03/2022 Appointment Laboratory Medicine Angélica Grnager P.A.-C. [address] [place] [phone] 07/17/2022 Appointment Laboratory Medicine Angélica Granger P.A.-C. [address] [place] [phone] 07/31/2022 Appointment Laboratory Medicine Angélica Granger P.A.-C. [address] [place] [phone] 08/14/2022 Appointment Laboratory Medicine Angélica Granger P.A.-C. [address] [place] [phone] 08/28/2022 Appointment Laboratory Medicine Angélica Granger P.A.-C. [address] [place] [phone] documented as of this encounter Visit Diagnoses Not on filedocumented in this encounter Additional Health Concerns Assessment Noted Time PHQ-9 Depression Total Score: 3 04/07/2013 9:47 AM CDT documented as of this encounter
--- OUTSIDE RECORDS SUMMARY | 2022-04-13 12:45 | XMS_ITS | Encounter Summary ---
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 [address] [place] [phone] 04/25/2022 Office Visit Otorhinolaryngology Dex Matta APRN, C.N.P., M.S.N. [address] [place] [phone] 05/08/2022 Appointment Laboratory Medicine Angélica Granger P.A.-C. [address] [place] [phone] 05/08/2022 Clinical Admitting/Central Communication Scheduling 05/10/2022 Appointment Radiology Jeremie Rose M.D. [address] [place] [phone] 05/10/2022 Comprehensive Visit Orthopedic Surgery Warner Graves M.D. [address] [place] [phone] 05/22/2022 Appointment Laboratory Medicine Angélica Granger P.A.-C. [address] [place] [address] [phone] 06/05/2022 Appointment Laboratory Medicine Angélica Granger P.A.-C. [address] [place] [phone] 06/19/2022 Appointment Laboratory Medicine Angélica Granger P.A.-C. [address] [place] [phone] 07/03/2022 Appointment Laboratory Medicine Angélica Granger P.A.-C. [address] [place] [phone] 07/17/2022 Appointment Laboratory Medicine Angélica Granger P.A.-C. [address] [place] [phone] 07/31/2022 Appointment Laboratory Medicine Angélica Granger P.A.-C. [address] [place] [phone] 08/14/2022 Appointment Laboratory Medicine Angélica Granger P.A.-C. [address] [place] [phone] 08/28/2022 Appointment Laboratory Medicine Angélica Granger P.A.-C. [address] [place] [phone] documented as of this encounter Visit Diagnoses Not on filedocumented in this encounter Additional Health Concerns Assessment Noted Time PHQ-9 Depression Total Score: 3 02/05/2013 8:01 AM CDT documented as of this encounter
--- OUTSIDE RECORDS SUMMARY | 2022-04-13 12:45 | XMS_ITS | Encounter Summary ---
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 capsule documented as of this encounter Plan of Treatment Upcoming Encounters Date Type Specialty Care Team Description 04/24/2022 Appointment Laboratory Medicine Angélica Granger P.A.-C. [address] [place] [phone] 04/25/2022 Office Visit Otorhinolaryngology Dex Matta APRN, C.N.P., M.S.N. [address] [place] [phone] 05/08/2022 Appointment Laboratory Medicine Angélica Granger P.A.-CDemetrius [address] [place] [phone] 05/08/2022 Clinical Admitting/Central Communication Scheduling 05/10/2022 Appointment Radiology Jeremie Rose M.D. [address] [place] [phone] 05/10/2022 Comprehensive Visit Orthopedic Surgery Warner Graves M.D. [address] [place] [phone] 05/22/2022 Appointment Laboratory Medicine Angélica Granger P.A.-CDemetrius [address] [place] [address] [phone] 06/05/2022 Appointment Laboratory Medicine Angélica Granger P.A.-C. [address] [place] [phone] 06/19/2022 Appointment Laboratory Medicine Angélica Granger P.A.-C. [address] [place] [phone] 07/03/2022 Appointment Laboratory Medicine Angélica Granger P.A.-C. [address] [place] [phone] 07/17/2022 Appointment Laboratory Medicine Angélica Granger P.A.-C. [address] [place] [phone] 07/31/2022 Appointment Laboratory Medicine Angélica Granger P.A.-C. [address] [place] [phone] 08/14/2022 Appointment Laboratory Medicine Angélica Granger P.A.-C. [address] [place] [phone] 08/28/2022 Appointment Laboratory Medicine Angélica Granger P.A.-C. [address] [place] [phone] documented as of this encounter Visit Diagnoses Not on filedocumented in this encounter Additional Health Concerns Assessment Noted Time PHQ-9 Depression Total Score: 3 04/07/2013 9:47 AM CDT documented as of this encounter
--- OUTSIDE RECORDS SUMMARY | 2022-04-13 12:45 | XMS_ITS | Encounter Summary ---
:1955 Author Organization [facility] Address [address] [place] [address] Care Team Providers Name Role Phone Unavailable Primary Care Provider Unavailable Encounter Details Date Type Department Care Team Description 04/22/2013 Hospital Encounter HX RST TXS LIVER Jean Graff, M.B.B.S. 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 capsule documented as of this encounter Plan of Treatment Upcoming Encounters Date Type Specialty Care Team Description 04/24/2022 Appointment Laboratory Medicine Angélica Granger P.A.-C. [address] [place] [address] [phone] 04/25/2022 Office Visit Otorhinolaryngology Dex Matta APRN, C.N.P., M.S.N. [address] [place] [phone] 05/08/2022 Appointment Laboratory Medicine Angélica Granger P.A.-CDemetrius [address] [place] [phone] 05/08/2022 Clinical Admitting/Central Communication Scheduling 05/10/2022 Appointment Radiology Jeremie Rose M.D. [address] [place] [phone] 05/10/2022 Comprehensive Visit Orthopedic Surgery Warner Graves M.D. [address] [place] [address] [phone] 05/22/2022 Appointment Laboratory Medicine Angélica Granger P.A.-CDemetrius [address] [place] [address] [phone] 06/05/2022 Appointment Laboratory Medicine Angélica Granger P.A.-C. [address] [place] [phone] 06/19/2022 Appointment Laboratory Medicine Angélica Granger P.A.-C. [address] [place] [phone] 07/03/2022 Appointment Laboratory Medicine Angélica Granger P.A.-C. [address] [place] [phone] 07/17/2022 Appointment Laboratory Medicine Angélica Granger P.A.-C. [address] [place] [phone] 07/31/2022 Appointment Laboratory Medicine Angélica Granger P.A.-C. [address] [place] [phone] 08/14/2022 Appointment Laboratory Medicine Angélica Granger P.A.-C. [address] [place] [phone] 08/28/2022 Appointment Laboratory Medicine Angélica Granger P.A.-C. [address] [place] [phone] documented as of this encounter Visit Diagnoses Not on filedocumented in this encounter Additional Health Concerns Assessment Noted Time PHQ-9 Depression Total Score: 3 04/07/2013 9:47 AM CDT documented as of this encounter
--- OUTSIDE RECORDS SUMMARY | 2022-04-13 12:45 | XMS_ITS | Encounter Summary ---
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 [address] [place] [phone] 04/25/2022 Office Visit Otorhinolaryngology Dex Matta APRN, C.N.P., M.S.N. [address] [place] [address] [phone] 05/08/2022 Appointment Laboratory Medicine Angélica Granger P.A.-C. [address] [place] [phone] 05/08/2022 Clinical Admitting/Central Communication Scheduling 05/10/2022 Appointment Radiology Jeremie Rose M.D. [address] [place] [phone] 05/10/2022 Comprehensive Visit Orthopedic Surgery Warner Graves M.D. [address] [place] [phone] 05/22/2022 Appointment Laboratory Medicine Angélica Gragner P.A.-C. [address] [place] [phone] 06/05/2022 Appointment Laboratory Medicine Angélica Granger P.A.-C. [address] [place] [phone] 06/19/2022 Appointment Laboratory Medicine Angélica Granger P.A.-C. [address] [place] [phone] 07/03/2022 Appointment Laboratory Medicine Angélica Granger P.A.-C. [address] [place] [phone] 07/17/2022 Appointment Laboratory Medicine Angélica Granger P.A.-C. [address] [place] [phone] 07/31/2022 Appointment Laboratory Medicine Angélica Granger P.A.-C. [address] [place] [address] [phone] 08/14/2022 Appointment Laboratory Medicine Angélica Granger P.A.-C. [address] [place] [phone] 08/28/2022 Appointment Laboratory Medicine Angélica Granger P.A.-C. [address] [place] [phone] documented as of this encounter Visit Diagnoses Not on filedocumented in this encounter Additional Health Concerns Assessment Noted Time PHQ-9 Depression Total Score: 8 12/04/2012 1:05 PM CDT documented as of this encounter
--- OUTSIDE RECORDS SUMMARY | 2022-04-13 12:45 | XMS_ITS | Encounter Summary ---
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 [address] [place] [phone] 04/25/2022 Office Visit Otorhinolaryngology Dex Matta APRN, C.N.P., M.S.N. [address] [place] [address] [phone] 05/08/2022 Appointment Laboratory Medicine Angélica Granger P.A.-C. [address] [place] [phone] 05/08/2022 Clinical Admitting/Central Communication Scheduling 05/10/2022 Appointment Radiology Jeremie Rose M.D. [address] [place] [phone] 05/10/2022 Comprehensive Visit Orthopedic Surgery Warner Graves M.D. [address] [place] [phone] 05/22/2022 Appointment Laboratory Medicine Angélica Granger P.A.-C. [address] [place] [phone] 06/05/2022 Appointment Laboratory Medicine Angélica Granger P.A.-C. [address] [place] [phone] 06/19/2022 Appointment Laboratory Medicine Angélica Granger P.A.-C. [address] [place] [phone] 07/03/2022 Appointment Laboratory Medicine Angélica Granger P.A.-C. [address] [place] [phone] 07/17/2022 Appointment Laboratory Medicine Angélica Granger P.A.-C. [address] [place] [phone] 07/31/2022 Appointment Laboratory Medicine Angélica Granger P.A.-C. [address] [place] [address] [phone] 08/14/2022 Appointment Laboratory Medicine Angélica Granger P.A.-C. [address] [place] [phone] 08/28/2022 Appointment Laboratory Medicine Angélica Granger P.A.-C. [address] [place] [phone] documented as of this encounter Visit Diagnoses Not on filedocumented in this encounter Additional Health Concerns Assessment Noted Time PHQ-9 Depression Total Score: 8 12/04/2012 1:05 PM CDT documented as of this encounter
--- OUTSIDE RECORDS SUMMARY | 2022-04-13 12:45 | XMS_ITS | Encounter Summary ---
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 [address] [place] [phone] 04/25/2022 Office Visit Otorhinolaryngology Dex Matta APRN, C.N.P., M.S.N. [address] [place] [address] [phone] 05/08/2022 Appointment Laboratory Medicine Angélica Granger P.A.-C. [address] [place] [phone] 05/08/2022 Clinical Admitting/Central Communication Scheduling 05/10/2022 Appointment Radiology Jeremie Rose M.D. [address] [place] [phone] 05/10/2022 Comprehensive Visit Orthopedic Surgery Warner Graves M.D. [address] [place] [phone] 05/22/2022 Appointment Laboratory Medicine Angélica Granger P.A.-C. [address] [place] [phone] 06/05/2022 Appointment Laboratory Medicine Angélica Granger P.A.-C. [address] [place] [phone] 06/19/2022 Appointment Laboratory Medicine Angélica Granger P.A.-C. [address] [place] [phone] 07/03/2022 Appointment Laboratory Medicine Angélica Granger P.A.-C. [address] [place] [phone] 07/17/2022 Appointment Laboratory Medicine Angélica Granger P.A.-C. [address] [place] [phone] 07/31/2022 Appointment Laboratory Medicine Angélica Granger P.A.-C. [address] [place] [address] [phone] 08/14/2022 Appointment Laboratory Medicine Angélica Granger P.A.-C. [address] [place] [phone] 08/28/2022 Appointment Laboratory Medicine Angélica Granger P.A.-C. [address] [place] [phone] documented as of this encounter Visit Diagnoses Not on filedocumented in this encounter Additional Health Concerns Assessment Noted Time PHQ-9 Depression Total Score: 8 12/04/2012 1:05 PM CDT documented as of this encounter
--- OUTSIDE RECORDS SUMMARY | 2022-04-13 12:46 | XMS_ITS | Encounter Summary ---
:1955 Author Organization [facility] Address [address] [place] [address] Care Team Providers Name Role Phone Unavailable Primary Care Provider Unavailable Encounter Details Date Type Department Care Team Description 09/08/2012 - Hospital Encounter HX RST INFUSION Love Sage V., 09/15/2012 THERAPY R.N. 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 [address] [place] [phone] 04/25/2022 Office Visit Otorhinolaryngology Dex Matta APRN CDemetriusNDemetriusP., M.S.N. [address] [place] [phone] 05/08/2022 Appointment Laboratory Medicine Angélica Granger P.A.-C. [address] [place] [phone] 05/08/2022 Clinical Admitting/Central Communication Scheduling 05/10/2022 Appointment Radiology Jeremie Rose M.D. [address] [place] [phone] 05/10/2022 Comprehensive Visit Orthopedic Surgery Warner Graves M.D. [address] [place] [address] [phone] 05/22/2022 Appointment Laboratory Medicine Angélica Granger P.A.-C. [address] [place] [phone] 06/05/2022 Appointment Laboratory Medicine Angélica Granger P.A.-C. [address] [place] [phone] 06/19/2022 Appointment Laboratory Medicine Angélica Granger P.A.-C. [address] [place] [phone] 07/03/2022 Appointment Laboratory Medicine Angélica Granger P.A.-C. [address] [place] [phone] 07/17/2022 Appointment Laboratory Medicine Angélica Granger P.A.-C. [address] [place] [phone] 07/31/2022 Appointment Laboratory Medicine Angélica Granger P.A.-C. [address] [place] [phone] 08/14/2022 Appointment Laboratory Medicine Angélica Granger P.A.-C. [address] [place] [phone] 08/28/2022 Appointment Laboratory Medicine Angélica Granger P.A.-C. [address] [place] [phone] documented as of this encounter Visit Diagnoses Not on filedocumented in this encounter Additional Health Concerns Assessment Noted Time PHQ-9 Depression Total Score: 6 06/18/2012 1:03 PM MOVIE PRODUCER documented as of this encounter
--- OUTSIDE RECORDS SUMMARY | 2022-04-13 12:46 | XMS_ITS | Encounter Summary ---
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 [address] [place] [phone] 04/25/2022 Office Visit Otorhinolaryngology Dex Matta APRN, C.N.P., M.S.N. [address] [place] [address] [phone] 05/08/2022 Appointment Laboratory Medicine Angélica Granger P.A.-C. [address] [place] [phone] 05/08/2022 Clinical Admitting/Central Communication Scheduling 05/10/2022 Appointment Radiology Jeremie Rose M.D. [address] [place] [phone] 05/10/2022 Comprehensive Visit Orthopedic Surgery Warner Graves M.D. [address] [place] [phone] 05/22/2022 Appointment Laboratory Medicine Angélica Granger P.A.-C. [address] [place] [phone] 06/05/2022 Appointment Laboratory Medicine Angélica Granger P.A.-C. [address] [place] [phone] 06/19/2022 Appointment Laboratory Medicine Angélica Granger P.A.-C. [address] [place] [phone] 07/03/2022 Appointment Laboratory Medicine Angélica Granger P.A.-C. [address] [place] [phone] 07/17/2022 Appointment Laboratory Medicine Angélica Granger P.A.-C. [address] [place] [phone] 07/31/2022 Appointment Laboratory Medicine Angélica Granger P.A.-C. [address] [place] [address] [phone] 08/14/2022 Appointment Laboratory Medicine Angélica Granger P.A.-C. [address] [place] [address] [phone] 08/28/2022 Appointment Laboratory Medicine Angélica Granger P.A.-C. 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
--- OUTSIDE RECORDS SUMMARY | 2022-04-13 12:46 | XMS_ITS | Encounter Summary ---
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 [address] [place] [phone] 04/25/2022 Office Visit Otorhinolaryngology Dex Matta APRN, C.N.P., M.S.N. [address] [place] [phone] 05/08/2022 Appointment Laboratory Medicine Angélica Granger P.A.-C. [address] [place] [phone] 05/08/2022 Clinical Admitting/Central Communication Scheduling 05/10/2022 Appointment Radiology Jeremie Rose M.D. [address] [place] [phone] 05/10/2022 Comprehensive Visit Orthopedic Surgery Warner Graves M.D. [address] [place] [phone] 05/22/2022 Appointment Laboratory Medicine Angélica Granger P.A.-C. [address] [place] [address] [phone] 06/05/2022 Appointment Laboratory Medicine Angélica Granger P.A.-C. [address] [place] [phone] 06/19/2022 Appointment Laboratory Medicine Angélica Granger P.A.-C. [address] [place] [phone] 07/03/2022 Appointment Laboratory Medicine Angélica Granger P.A.-C. [address] [place] [phone] 07/17/2022 Appointment Laboratory Medicine Angélica Granger P.A.-C. [address] [place] [phone] 07/31/2022 Appointment Laboratory Medicine Angélica Granger P.A.-C. [address] [place] [phone] 08/14/2022 Appointment Laboratory Medicine Angélica Granger P.A.-C. [address] [place] [phone] 08/28/2022 Appointment Laboratory Medicine Angélica Granger P.A.-C. 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
--- OUTSIDE RECORDS SUMMARY | 2022-04-13 12:46 | XMS_ITS | Encounter Summary ---
:1955 Author Organization [facility] Address [address] [place] [address] Care Team Providers Name Role Phone Unavailable Primary Care Provider Unavailable Encounter Details Date Type Department Care Team Description 04/01/2012 Hospital Encounter HX NO MAPPING Roshan Grace M.S .N., R.N., C.C.T.C. 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 [address] [place] [phone] 04/25/2022 Office Visit Otorhinolaryngology Dex Matta APRN, C.N.P., M.S.N. [address] [place] [phone] 05/08/2022 Appointment Laboratory Medicine Angélica Granger P.A.-C. [address] [place] [phone] 05/08/2022 Clinical Admitting/Central Communication Scheduling 05/10/2022 Appointment Radiology Jeremie Rose M.D. [address] [place] [phone] 05/10/2022 Comprehensive Visit Orthopedic Surgery Warner Graves M.D. [address] [place] [phone] 05/22/2022 Appointment Laboratory Medicine Angélica Granger P.A.-C. [address] [place] [phone] 06/05/2022 Appointment Laboratory Medicine Angélica Granger P.A.-C. [address] [place] [address] [phone] 06/19/2022 Appointment Laboratory Medicine Angélica Granger P.A.-C. [address] [place] [phone] 07/03/2022 Appointment Laboratory Medicine Angélica Granger P.A.-C. [address] [place] [phone] 07/17/2022 Appointment Laboratory Medicine Angélica Granger P.A.-C. [address] [place] [phone] 07/31/2022 Appointment Laboratory Medicine Angélica Granger P.A.-C. [address] [place] [address] [phone] 08/14/2022 Appointment Laboratory Medicine Angélica Granger P.A.-C. [address] [place] [address] [phone] 08/28/2022 Appointment Laboratory Medicine Angélica Granger P.A.-C. [address] [place] [phone] documented as of this encounter Visit Diagnoses Not on filedocumented in this encounter
--- OUTSIDE RECORDS SUMMARY | 2022-04-13 12:46 | XMS_ITS | Encounter Summary ---
:1955 Author Organization [facility] Address [address] [place] [address] Care Team Providers Name Role Phone Unavailable Primary Care Provider Unavailable Encounter Details Date Type Department Care Team Description 09/21/2012 Hospital Encounter HX NO MAPPING Roshan Grace M.S .N., R.N., C.C.T.C. 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 [address] [place] [phone] 04/25/2022 Office Visit Otorhinolaryngology Dex Matta APRN, C.N.P., M.S.N. [address] [place] [phone] 05/08/2022 Appointment Laboratory Medicine Angélica Granger P.A.-C. [address] [place] [phone] 05/08/2022 Clinical Admitting/Central Communication Scheduling 05/10/2022 Appointment Radiology Jeremie Rose M.D. [address] [place] [phone] 05/10/2022 Comprehensive Visit Orthopedic Surgery Warner Graves M.D. [address] [place] [phone] 05/22/2022 Appointment Laboratory Medicine Angélica Granger P.A.-C. [address] [place] [phone] 06/05/2022 Appointment Laboratory Medicine Angélica Granger P.A.-C. [address] [place] [address] [phone] 06/19/2022 Appointment Laboratory Medicine Angélica Granger P.A.-C. [address] [place] [phone] 07/03/2022 Appointment Laboratory Medicine Angélica Granger P.A.-C. [address] [place] [address] [phone] 07/17/2022 Appointment Laboratory Medicine Angélica Granger P.A.-C. [address] [place] [address] [phone] 07/31/2022 Appointment Laboratory Medicine Angélica Granger P.A.-C. [address] [place] [phone] 08/14/2022 Appointment Laboratory Medicine Angélica Granger P.A.-C. [address] [place] [phone] 08/28/2022 Appointment Laboratory Medicine Angélica Granger P.A.-C. [address] [place] [phone] documented as of this encounter Visit Diagnoses Not on filedocumented in this encounter Additional Health Concerns Assessment Noted Time PHQ-9 Depression Total Score: 6 06/18/2012 1:03 PM CHAIN TENDER documented as of this encounter
--- OUTSIDE RECORDS SUMMARY | 2022-04-13 12:46 | XMS_ITS | Encounter Summary ---
:1955 Author Organization [facility] Address [address] [place] [address] Care Team Providers Name Role Phone Unavailable Primary Care Provider Unavailable Encounter Details Date Type Department Care Team Description 04/27/2012 - Hospital Encounter HX RST INFUSION Sherron Freitas 05/04/2012 THERAPY K, R.N. 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 Last Filed Vital Signs Vital Sign Reading Time Taken Comments Blood Pressure 130/77 04/27/2012 8:47 AM DROP FORGER HELPER Pulse 40 04/27/2012 8:47 AM DROP FORGER HELPER Temperature - - Respiratory Rate - - Oxygen Saturation - - Inhaled Oxygen Concentration - - Weight 78.4 kg (172 lb 13.5 oz) 04/27/2012 8:47 AM DROP FORGER HELPER Height 182.3 cm (5' 11.77) 04/27/2012 8:47 AM DROP FORGER HELPER Body Mass Index 23.59 04/27/2012 8:47 AM DROP FORGER HELPER documented in this encounter Plan of Treatment Upcoming Encounters Date Type Specialty Care Team Description 04/24/2022 Appointment Laboratory Medicine Angélica Granger, P.A.-C. [address] [place] [address] [phone] 04/25/2022 Office Visit Otorhinolaryngology Dex Matta APRN, C.N.P., M.S.N. [address] [place] [address] [phone] 05/08/2022 Appointment Laboratory Medicine Angélica Granger, P.A.-C. [address] [place] [address] [phone] 05/08/2022 Clinical Admitting/Central Communication Scheduling 05/10/2022 Appointment Radiology Jeremie Rose M.D. [address] [place] [phone] 05/10/2022 Comprehensive Visit Orthopedic Surgery Warner Graves M.D. [address] [place] [address] [phone] 05/22/2022 Appointment Laboratory Medicine Angélica Granger P.A.-C. [address] [place] [phone] 06/05/2022 Appointment Laboratory Medicine Angélica Granger P.A.-C. [address] [place] [phone] 06/19/2022 Appointment Laboratory Medicine Angélica Granger P.A.-C. [address] [place] [phone] 07/03/2022 Appointment Laboratory Medicine Angélica Granger P.A.-C. [address] [place] [phone] 07/17/2022 Appointment Laboratory Medicine Angélica Granger P.A.-C. [address] [place] [phone] 07/31/2022 Appointment Laboratory Medicine Angélica Granger P.A.-C. [address] [place] [phone] 08/14/2022 Appointment Laboratory Angélica Royal P.A.-C. [address] [place] [phone] 08/28/2022 Appointment Laboratory Medicine Angélica Granger P.A.-C. [address] [place] [phone] documented as of this encounter Visit Diagnoses Not on filedocumented in this encounter Additional Health Concerns Assessment Noted Time PHQ-9 Depression Total Score: 5 04/10/2012 1:31 PM CDT documented as of this encounter
--- OUTSIDE RECORDS SUMMARY | 2022-04-13 12:46 | XMS_ITS | Encounter Summary ---
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 [address] [place] [phone] 04/25/2022 Office Visit Otorhinolaryngology Dex Matta APRN, C.N.P., M.S.N. [address] [place] [phone] 05/08/2022 Appointment Laboratory Medicine Angélica Granger P.A.-C. [address] [place] [address] [phone] 05/08/2022 Clinical Admitting/Central Communication Scheduling 05/10/2022 Appointment Radiology Jeremie Rose M.D. [address] [place] [phone] 05/10/2022 Comprehensive Visit Orthopedic Surgery Warner Graves M.D. [address] [place] [phone] 05/22/2022 Appointment Laboratory Medicine Angélica Granger P.A.-C. [address] [place] [address] [phone] 06/05/2022 Appointment Laboratory Medicine Angélica Granger P.A.-C. [address] [place] [phone] 06/19/2022 Appointment Laboratory Medicine Angélica Granger P.A.-C. [address] [place] [phone] 07/03/2022 Appointment Laboratory Medicine Angélica Granger P.A.-C. [address] [place] [phone] 07/17/2022 Appointment Laboratory Medicine Angélica Granger P.A.-C. [address] [place] [phone] 07/31/2022 Appointment Laboratory Medicine Angélica Granger P.A.-C. [address] [place] [phone] 08/14/2022 Appointment Laboratory Medicine Angélica Granger P.A.-C. [address] [place] [phone] 08/28/2022 Appointment Laboratory Medicine Angélica Granger P.A.-C. 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
--- OUTSIDE RECORDS SUMMARY | 2022-04-13 12:46 | XMS_ITS | Encounter Summary ---
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 [address] [place] [phone] 04/25/2022 Office Visit Otorhinolaryngology Dex Matta APRN, C.N.P., M.S.N. [address] [place] [address] [phone] 05/08/2022 Appointment Laboratory Medicine Angélica Granger P.A.-C. [address] [place] [phone] 05/08/2022 Clinical Admitting/Central Communication Scheduling 05/10/2022 Appointment Radiology Jeremie Rose M.D. [address] [place] [phone] 05/10/2022 Comprehensive Visit Orthopedic Surgery Warner Graves M.D. [address] [place] [phone] 05/22/2022 Appointment Laboratory Medicine Angélica Granger P.A.-C. [address] [place] [phone] 06/05/2022 Appointment Laboratory Medicine Angélica Granger P.A.-C. [address] [place] [phone] 06/19/2022 Appointment Laboratory Medicine Angélica Granger P.A.-C. [address] [place] [phone] 07/03/2022 Appointment Laboratory Medicine Angélica Granger P.A.-C. [address] [place] [phone] 07/17/2022 Appointment Laboratory Medicine Angélica Granger P.A.-C. [address] [place] [phone] 07/31/2022 Appointment Laboratory Medicine Angélica Granger P.A.-C. [address] [place] [address] [phone] 08/14/2022 Appointment Laboratory Medicine Angélica Granger P.A.-C. [address] [place] [address] [phone] 08/28/2022 Appointment Laboratory Medicine Angélica Granger P.A.-C. 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
--- OUTSIDE RECORDS SUMMARY | 2022-04-13 12:46 | XMS_ITS | Encounter Summary ---
:1955 Author Organization [facility] Address [address] [place] [address] Care Team Providers Name Role Phone Unavailable Primary Care Provider Unavailable Encounter Details Date Type Department Care Team Description 10/05/2012 Hospital Encounter HX NO MAPPING Roshan Grace M.S .N., R.N., C.C.T.C. 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 [address] [place] [phone] 04/25/2022 Office Visit Otorhinolaryngology Dex Matta APRN, C.N.P., M.S.N. [address] [place] [phone] 05/08/2022 Appointment Laboratory Medicine Angélica Granger P.A.-C. [address] [place] [phone] 05/08/2022 Clinical Admitting/Central Communication Scheduling 05/10/2022 Appointment Radiology Jeremie Rose M.D. [address] [place] [phone] 05/10/2022 Comprehensive Visit Orthopedic Surgery Warner Graves M.D. [address] [place] [phone] 05/22/2022 Appointment Laboratory Medicine Angélica Granger P.A.-C. [address] [place] [phone] 06/05/2022 Appointment Laboratory Medicine Angélica Granger P.A.-C. [address] [place] [address] [phone] 06/19/2022 Appointment Laboratory Medicine Angélica Granger P.A.-C. [address] [place] [phone] 07/03/2022 Appointment Laboratory Medicine Angélica Granger P.A.-C. [address] [place] [address] [phone] 07/17/2022 Appointment Laboratory Medicine Angélica Granger P.A.-C. [address] [place] [address] [phone] 07/31/2022 Appointment Laboratory Medicine Angélica Granger P.A.-C. [address] [place] [phone] 08/14/2022 Appointment Laboratory Medicine Angélica Granger P.A.-C. [address] [place] [phone] 08/28/2022 Appointment Laboratory Medicine Angélica Granger P.A.-C. 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
--- OUTSIDE RECORDS SUMMARY | 2022-04-13 12:46 | XMS_ITS | Encounter Summary ---
:1955 Author Organization [facility] Address [address] [place] [address] Care Team Providers Name Role Phone Unavailable Primary Care Provider Unavailable Encounter Details Date Type Department Care Team Description 09/07/2012 Hospital Encounter HX NO MAPPING Arabella Ayers R. N., C.C.T.C. 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 [address] [place] [phone] 04/25/2022 Office Visit Otorhinolaryngology Dex Matta, RAMONA, C.N.P., M.S.N. [address] [place] [phone] 05/08/2022 Appointment Laboratory Medicine Angélica Granger P.A.-C. [address] [place] [phone] 05/08/2022 Clinical Admitting/Central Communication Scheduling 05/10/2022 Appointment Radiology Jeremie Rose M.D. [address] [place] [phone] 05/10/2022 Comprehensive Visit Orthopedic Surgery Warner Graves M.D. [address] [place] [phone] 05/22/2022 Appointment Laboratory Medicine Angélica Granger P.A.-C. [address] [place] [address] [phone] 06/05/2022 Appointment Laboratory Medicine Angélica Granger P.A.-C. [address] [place] [address] [phone] 06/19/2022 Appointment Laboratory Medicine Angélica Granger P.A.-C. [address] [place] [phone] 07/03/2022 Appointment Laboratory Medicine Angélica Granger P.A.-C. [address] [place] [phone] 07/17/2022 Appointment Laboratory Medicine Angélica Granger P.A.-C. [address] [place] [phone] 07/31/2022 Appointment Laboratory Medicine Angélica Granger P.A.-C. [address] [place] [phone] 08/14/2022 Appointment Laboratory Medicine Angélica Granger P.A.-C. [address] [place] [phone] 08/28/2022 Appointment Laboratory Medicine Angélica Granger P.A.-C. 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
--- OUTSIDE RECORDS SUMMARY | 2022-04-13 12:46 | XMS_ITS | Encounter Summary ---
:1955 Author Organization [facility] Address [address] [place] [address] Care Team Providers Name Role Phone Unavailable Primary Care Provider Unavailable Encounter Details Date Type Department Care Team Description 04/10/2012 - Hospital Encounter HX RST INFUSION [facility] [place], 04/17/2012 THERAPY Italo Azevedo R.N. 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 [address] [place] [phone] 04/25/2022 Office Visit Otorhinolaryngology Dex Matta APRN, C.N.P., M.S.N. [address] [place] [address] [phone] 05/08/2022 Appointment Laboratory Medicine Angélica Granger P.A.-C. [address] [place] [address] [phone] 05/08/2022 Clinical Admitting/Central Communication Scheduling 05/10/2022 Appointment Radiology Jeremie Rose M.D. [address] [place] [phone] 05/10/2022 Comprehensive Visit Orthopedic Surgery Warner Graves M.D. [address] [place] [address] [phone] 05/22/2022 Appointment Laboratory Medicine Angélica Granger P.A.-CDemetrius [address] [place] [address] [phone] 06/05/2022 Appointment Laboratory Medicine Angélica Granger P.A.-CDemetrius [address] [place] [address] [phone] 06/19/2022 Appointment Laboratory Medicine Angélica Granger P.A.-C. [address] [place] [phone] 07/03/2022 Appointment Laboratory Medicine Angélica Granger P.A.-C. [address] [place] [phone] 07/17/2022 Appointment Laboratory Medicine Angélica Granger P.A.-C. [address] [place] [phone] 07/31/2022 Appointment Laboratory Medicine Angélica Granger P.A.-C. [address] [place] [phone] 08/14/2022 Appointment Laboratory Medicine Angélica Granger P.A.-C. [address] [place] [phone] 08/28/2022 Appointment Laboratory Medicine Angélica Granger P.A.-C. [address] [place] [phone] documented as of this encounter Visit Diagnoses Not on filedocumented in this encounter Additional Health Concerns Assessment Noted Time PHQ-9 Depression Total Score: 5 04/10/2012 1:31 PM CDT documented as of this encounter
--- OUTSIDE RECORDS SUMMARY | 2022-04-13 12:46 | XMS_ITS | Encounter Summary ---
:1955 Author Organization [facility] Address [address] [place] [address] Care Team Providers Name Role Phone Unavailable Primary Care Provider Unavailable Encounter Details Date Type Department Care Team Description 07/31/2012 - Hospital Encounter HX RST INFUSION Willis Antoine 08/07/2012 THERAPY J, R.N. 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 [address] [place] [phone] 04/25/2022 Office Visit Otorhinolaryngology Dex Matta APRN, C.N.P., M.S.N. [address] [place] [address] [phone] 05/08/2022 Appointment Laboratory Medicine Angélica Granger P.A.-CDemetrius [address] [place] [address] [phone] 05/08/2022 Clinical Admitting/Central Communication Scheduling 05/10/2022 Appointment Radiology Jeremie Rose M.D. [address] [place] [phone] 05/10/2022 Comprehensive Visit Orthopedic Surgery Warner Graves M.D. [address] [place] [address] [phone] 05/22/2022 Appointment Laboratory Medicine Angélica Granger P.A.-CDemetrius [address] [place] [address] [phone] 06/05/2022 Appointment Laboratory Medicine Angélica Granger P.A.-CDemetrius [address] [place] [phone] 06/19/2022 Appointment Laboratory Medicine Angélica Granger P.A.-C. [address] [place] [phone] 07/03/2022 Appointment Laboratory Medicine Angélica Granger P.A.-C. [address] [place] [phone] 07/17/2022 Appointment Laboratory Medicine Angélica Granger P.A.-C. [address] [place] [phone] 07/31/2022 Appointment Laboratory Medicine Angélica Granger P.A.-C. [address] [place] [phone] 08/14/2022 Appointment Laboratory Angélica Royal P.A.-C. [address] [place] [phone] 08/28/2022 Appointment Laboratory Angélica Royal P.A.-C. 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
--- OUTSIDE RECORDS SUMMARY | 2022-04-13 12:46 | XMS_ITS | Encounter Summary ---
:1955 Author Organization [facility] Address [address] [place] [address] Care Team Providers Name Role Phone Unavailable Primary Care Provider Unavailable Encounter Details Date Type Department Care Team Description 05/18/2012 - Hospital Encounter HX RST INFUSION Sherron Freitas 05/25/2012 THERAPY K, R.N. 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 [address] [place] [phone] 04/25/2022 Office Visit Otorhinolaryngology Dex Matta APRN, C.N.P., M.S.N. [address] [place] [address] [phone] 05/08/2022 Appointment Laboratory Medicine Angélica Grnager P.A.-CDemetrius [address] [place] [address] [phone] 05/08/2022 Clinical Admitting/Central Communication Scheduling 05/10/2022 Appointment Radiology Jeremie Rose M.D. [address] [place] [phone] 05/10/2022 Comprehensive Visit Orthopedic Surgery Warner Graves M.D. [address] [place] [address] [phone] 05/22/2022 Appointment Laboratory Medicine Angélica Granger P.A.-CDemetrius [address] [place] [address] [phone] 06/05/2022 Appointment Laboratory Medicine Angélica Granger P.A.-CDemetrius [address] [place] [phone] 06/19/2022 Appointment Laboratory Medicine Angélica Granger P.A.-C. [address] [place] [phone] 07/03/2022 Appointment Laboratory Medicine Angélica Granger P.A.-C. [address] [place] [phone] 07/17/2022 Appointment Laboratory Medicine Angélica Granger P.A.-C. [address] [place] [phone] 07/31/2022 Appointment Laboratory Medicine Angélica Granger P.A.-C. [address] [place] [phone] 08/14/2022 Appointment Laboratory Angélcia Royal P.A.-C. [address] [place] [phone] 08/28/2022 Appointment Laboratory Angélica Royal P.A.-C. [address] [place] [phone] documented as of this encounter Visit Diagnoses Not on filedocumented in this encounter Additional Health Concerns Assessment Noted Time PHQ-9 Depression Total Score: 5 04/10/2012 1:31 PM CDT documented as of this encounter
--- OUTSIDE RECORDS SUMMARY | 2022-04-13 12:46 | XMS_ITS | Encounter Summary ---
:1955 Author Organization [facility] Address [address] [place] [address] Care Team Providers Name Role Phone Unavailable Primary Care Provider Unavailable Encounter Details Date Type Department Care Team Description 05/18/2012 Hospital Encounter HX RST TXS LIVER Cristi Tee M.D. 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 [address] [place] [phone] 04/25/2022 Office Visit Otorhinolaryngology Dex Matta APRN, C.N.P., M.S.N. [address] [place] [phone] 05/08/2022 Appointment Laboratory Medicine Angélica Granger P.A.-C. [address] [place] [phone] 05/08/2022 Clinical Admitting/Central Communication Scheduling 05/10/2022 Appointment Radiology Jeremie Rose M.D. [address] [place] [phone] 05/10/2022 Comprehensive Visit Orthopedic Surgery Warner Graves M.D. [address] [place] [phone] 05/22/2022 Appointment Laboratory Medicine Angélica Granger P.A.-C. [address] [place] [phone] 06/05/2022 Appointment Laboratory Medicine Angélica Granger P.A.-C. [address] [place] [phone] 06/19/2022 Appointment Laboratory Medicine Angélica Granger P.A.-C. [address] [place] [phone] 07/03/2022 Appointment Laboratory Medicine Angélica Granger P.A.-C. [address] [place] [phone] 07/17/2022 Appointment Laboratory Medicine Angélica Granger P.A.-C. [address] [place] [phone] 07/31/2022 Appointment Laboratory Medicine Angélica Granger P.A.-C. [address] [place] [address] [phone] 08/14/2022 Appointment Laboratory Medicine Angélica Granger P.A.-C. [address] [place] [address] [phone] 08/28/2022 Appointment Laboratory Medicine Angélica Granger P.A.-C. [address] [place] [phone] documented as of this encounter Visit Diagnoses Not on filedocumented in this encounter Additional Health Concerns Assessment Noted Time PHQ-9 Depression Total Score: 5 04/10/2012 1:31 PM CDT documented as of this encounter
--- OUTSIDE RECORDS SUMMARY | 2022-04-13 12:46 | XMS_ITS | Encounter Summary ---
:1955 Author Organization [facility] Address [address] [place] [address] Care Team Providers Name Role Phone Unavailable Primary Care Provider Unavailable Encounter Details Date Type Department Care Team Description 08/21/2012 - Hospital Encounter HX RST INFUSION [facility] [place], 08/28/2012 THERAPY Italo Azevedo R.N. 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 [address] [place] [phone] 04/25/2022 Office Visit Otorhinolaryngology Dex Matta APRN, C.N.P., M.S.N. [address] [place] [address] [phone] 05/08/2022 Appointment Laboratory Medicine Angélica Granger P.A.-C. [address] [place] [address] [phone] 05/08/2022 Clinical Admitting/Central Communication Scheduling 05/10/2022 Appointment Radiology Jeremie Rose M.D. [address] [place] [phone] 05/10/2022 Comprehensive Visit Orthopedic Surgery Warner Graves M.D. [address] [place] [address] [phone] 05/22/2022 Appointment Laboratory Medicine Angélica Granger P.A.-CDemetrius [address] [place] [address] [phone] 06/05/2022 Appointment Laboratory Medicine Angélica Granger P.A.-CDemetrius [address] [place] [address] [phone] 06/19/2022 Appointment Laboratory Medicine Angélica Granger P.A.-C. [address] [place] [phone] 07/03/2022 Appointment Laboratory Medicine Angélica Granger P.A.-C. [address] [place] [phone] 07/17/2022 Appointment Laboratory Medicine Angélica Granger P.A.-C. [address] [place] [phone] 07/31/2022 Appointment Laboratory Medicine Angélica Granger P.A.-C. [address] [place] [phone] 08/14/2022 Appointment Laboratory Medicine Angélica Granger P.A.-C. [address] [place] [phone] 08/28/2022 Appointment Laboratory Medicine Angélica Granger P.A.-C. 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
--- OUTSIDE RECORDS SUMMARY | 2022-04-13 12:46 | XMS_ITS | Encounter Summary ---
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 [address] [place] [phone] 04/25/2022 Office Visit Otorhinolaryngology Dex Matta APRN, C.N.P., M.S.N. [address] [place] [address] [phone] 05/08/2022 Appointment Laboratory Medicine Angélica Granger P.A.-C. [address] [place] [phone] 05/08/2022 Clinical Admitting/Central Communication Scheduling 05/10/2022 Appointment Radiology Jeremie Rose M.D. [address] [place] [phone] 05/10/2022 Comprehensive Visit Orthopedic Surgery Warner Graves M.D. [address] [place] [phone] 05/22/2022 Appointment Laboratory Medicine Angélica Granger P.A.-C. [address] [place] [phone] 06/05/2022 Appointment Laboratory Medicine Angélica Granger P.A.-C. [address] [place] [phone] 06/19/2022 Appointment Laboratory Medicine Angélica Granger P.A.-C. [address] [place] [phone] 07/03/2022 Appointment Laboratory Medicine Angélica Granger P.A.-C. [address] [place] [phone] 07/17/2022 Appointment Laboratory Medicine Angélica Granger P.A.-C. [address] [place] [phone] 07/31/2022 Appointment Laboratory Medicine Angélica Granger P.A.-C. [address] [place] [address] [phone] 08/14/2022 Appointment Laboratory Medicine Angélica Granger P.A.-C. [address] [place] [address] [phone] 08/28/2022 Appointment Laboratory Medicine Angélica Granger P.A.-C. 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
--- OUTSIDE RECORDS SUMMARY | 2022-04-13 12:46 | XMS_ITS | Encounter Summary ---
:1955 Author Organization [facility] Address [address] [place] [address] Care Team Providers Name Role Phone Unavailable Primary Care Provider Unavailable Encounter Details Date Type Department Care Team Description 09/17/2012 Hospital Encounter HX NO MAPPING Roshan Grace M.S .N., R.N., C.C.T.C. 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 [address] [place] [phone] 04/25/2022 Office Visit Otorhinolaryngology Dex Matta APRN, C.N.P., M.S.N. [address] [place] [phone] 05/08/2022 Appointment Laboratory Medicine Angélica Granger P.A.-C. [address] [place] [phone] 05/08/2022 Clinical Admitting/Central Communication Scheduling 05/10/2022 Appointment Radiology Jeremie Rose M.D. [address] [place] [phone] 05/10/2022 Comprehensive Visit Orthopedic Surgery Warner Graves M.D. [address] [place] [phone] 05/22/2022 Appointment Laboratory Medicine Angélica Granger P.A.-C. [address] [place] [phone] 06/05/2022 Appointment Laboratory Medicine Angélica Granger P.A.-C. [address] [place] [address] [phone] 06/19/2022 Appointment Laboratory Medicine Angélica Granger P.A.-C. [address] [place] [phone] 07/03/2022 Appointment Laboratory Medicine Angélica Granger P.A.-C. [address] [place] [address] [phone] 07/17/2022 Appointment Laboratory Medicine Angélica Granger P.A.-C. [address] [place] [address] [phone] 07/31/2022 Appointment Laboratory Medicine Angélica Granger P.A.-C. [address] [place] [phone] 08/14/2022 Appointment Laboratory Medicine Angélica Granger P.A.-C. [address] [place] [phone] 08/28/2022 Appointment Laboratory Medicine Angélica Granger P.A.-C. 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
--- OUTSIDE RECORDS SUMMARY | 2022-04-13 12:46 | XMS_ITS | Encounter Summary ---
:1955 Author Organization [facility] Address [address] [place] [address] Care Team Providers Name Role Phone Unavailable Primary Care Provider Unavailable Encounter Details Date Type Department Care Team Description 10/02/2012 Hospital Encounter HX NO MAPPING Roshan Grace M.S .N., R.N., C.C.T.C. 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 [address] [place] [phone] 04/25/2022 Office Visit Otorhinolaryngology Dex Matta APRN, C.N.P., M.S.N. [address] [place] [phone] 05/08/2022 Appointment Laboratory Medicine Angélica Granger P.A.-C. [address] [place] [phone] 05/08/2022 Clinical Admitting/Central Communication Scheduling 05/10/2022 Appointment Radiology Jeremie Rose M.D. [address] [place] [phone] 05/10/2022 Comprehensive Visit Orthopedic Surgery Warner Graves M.D. [address] [place] [phone] 05/22/2022 Appointment Laboratory Medicine Angélica Granger P.A.-C. [address] [place] [phone] 06/05/2022 Appointment Laboratory Medicine Angélica Granger P.A.-C. [address] [place] [address] [phone] 06/19/2022 Appointment Laboratory Medicine Angélica Granger P.A.-C. [address] [place] [phone] 07/03/2022 Appointment Laboratory Medicine Angélica Granger P.A.-C. [address] [place] [address] [phone] 07/17/2022 Appointment Laboratory Medicine Angélica Granger P.A.-C. [address] [place] [address] [phone] 07/31/2022 Appointment Laboratory Medicine Angélica Granger P.A.-C. [address] [place] [phone] 08/14/2022 Appointment Laboratory Medicine Angélica Granger P.A.-C. [address] [place] [phone] 08/28/2022 Appointment Laboratory Medicine Angélica Granger P.A.-C. 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
--- OUTSIDE RECORDS SUMMARY | 2022-04-13 12:46 | XMS_ITS | Encounter Summary ---
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 [address] [place] [phone] 04/25/2022 Office Visit Otorhinolaryngology Dex Matta APRN, C.N.P., M.S.N. [address] [place] [address] [phone] 05/08/2022 Appointment Laboratory Medicine Angélica Granger P.A.-C. [address] [place] [phone] 05/08/2022 Clinical Admitting/Central Communication Scheduling 05/10/2022 Appointment Radiology Jeremie Rose M.D. [address] [place] [phone] 05/10/2022 Comprehensive Visit Orthopedic Surgery Warner Graves M.D. [address] [place] [phone] 05/22/2022 Appointment Laboratory Medicine Angélica Granger P.A.-C. [address] [place] [phone] 06/05/2022 Appointment Laboratory Medicine Angélica Granger P.A.-C. [address] [place] [phone] 06/19/2022 Appointment Laboratory Medicine Angélica Granger P.A.-C. [address] [place] [phone] 07/03/2022 Appointment Laboratory Medicine Angélica Granger P.A.-C. [address] [place] [phone] 07/17/2022 Appointment Laboratory Medicine Angélica Granger P.A.-C. [address] [place] [phone] 07/31/2022 Appointment Laboratory Medicine Angélica Granger P.A.-C. [address] [place] [address] [phone] 08/14/2022 Appointment Laboratory Medicine Angélica Granger P.A.-C. [address] [place] [phone] 08/28/2022 Appointment Laboratory Medicine Angélica Granger P.A.-C. [address] [place] [phone] documented as of this encounter Visit Diagnoses Not on filedocumented in this encounter Additional Health Concerns Assessment Noted Time PHQ-9 Depression Total Score: 5 04/10/2012 1:31 PM CDT documented as of this encounter
--- OUTSIDE RECORDS SUMMARY | 2022-04-13 12:46 | XMS_ITS | Encounter Summary ---
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 [address] [place] [phone] 04/25/2022 Office Visit Otorhinolaryngology Dex Matta APRN, C.N.P., M.S.N. [address] [place] [address] [phone] 05/08/2022 Appointment Laboratory Medicine Angélica Granger P.A.-C. [address] [place] [phone] 05/08/2022 Clinical Admitting/Central Communication Scheduling 05/10/2022 Appointment Radiology Jeremie Rose M.D. [address] [place] [phone] 05/10/2022 Comprehensive Visit Orthopedic Surgery Warner Graves M.D. [address] [place] [phone] 05/22/2022 Appointment Laboratory Medicine Angélica Granger P.A.-C. [address] [place] [phone] 06/05/2022 Appointment Laboratory Medicine Angélica Granger P.A.-C. [address] [place] [phone] 06/19/2022 Appointment Laboratory Medicine Angélica Granger P.A.-C. [address] [place] [phone] 07/03/2022 Appointment Laboratory Medicine Angélica Granger P.A.-C. [address] [place] [phone] 07/17/2022 Appointment Laboratory Medicine Angélica Granger P.A.-C. [address] [place] [phone] 07/31/2022 Appointment Laboratory Medicine Angélica Granger P.A.-C. [address] [place] [address] [phone] 08/14/2022 Appointment Laboratory Medicine Angélica Granger P.A.-C. [address] [place] [phone] 08/28/2022 Appointment Laboratory Medicine Angélica Granger P.A.-C. [address] [place] [phone] documented as of this encounter Visit Diagnoses Not on filedocumented in this encounter Additional Health Concerns Assessment Noted Time PHQ-9 Depression Total Score: 5 04/10/2012 1:31 PM CDT documented as of this encounter
--- OUTSIDE RECORDS SUMMARY | 2022-04-13 12:46 | XMS_ITS | Encounter Summary ---
:1955 Author Organization [facility] Address [address] [place] [address] Care Team Providers Name Role Phone Unavailable Primary Care Provider Unavailable Encounter Details Date Type Department Care Team Description 06/01/2012 - Hospital Encounter HX RST INFUSION Ramiro Tijerina 06/08/2012 THERAPY T, R.N. 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 [address] [place] [address] [phone] 05/08/2022 Appointment Laboratory Medicine Angélica Granger P.A.-CDemetrius [address] [place] [address] [phone] 05/08/2022 Clinical Admitting/Central Communication Scheduling 05/10/2022 Appointment Radiology Jeremie Rose M.D. [address] [place] [address] [phone] 05/10/2022 Comprehensive Visit Orthopedic Surgery Warner Graves M.D. [address] [place] [address] [phone] 05/22/2022 Appointment Laboratory Medicine Angélica Granger P.A.-CDemetrius [address] [place] [address] [phone] 06/05/2022 Appointment Laboratory Medicine Angélica Granger P.A.-C. [address] [place] [phone] 06/19/2022 Appointment Laboratory Medicine Angélica Granger P.A.-C. [address] [place] [phone] 07/03/2022 Appointment Laboratory Medicine Angélica Granger P.A.-C. [address] [place] [phone] 07/17/2022 Appointment Laboratory Medicine Angélica Granger P.A.-C. [address] [place] [phone] 07/31/2022 Appointment Laboratory Medicine Angélica Granger P.A.-C. [address] [place] [phone] 08/14/2022 Appointment Laboratory Medicine Angélica Granger P.A.-C. [address] [place] [phone] 08/28/2022 Appointment Laboratory Medicine Angélica Granger P.A.-C. [address] [place] [phone] documented as of this encounter Visit Diagnoses Not on filedocumented in this encounter Additional Health Concerns Assessment Noted Time PHQ-9 Depression Total Score: 5 04/10/2012 1:31 PM CDT documented as of this encounter
--- OUTSIDE RECORDS SUMMARY | 2022-04-13 12:46 | XMS_ITS | Encounter Summary ---
:[address] 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 [address] [place] [phone] 04/25/2022 Office Visit Otorhinolaryngology Dex Matta APRN, C.N.P., M.S.N. [address] [place] [address] [phone] 05/08/2022 Appointment Laboratory Medicine Angélica Granger P.A.-C. [address] [place] [phone] 05/08/2022 Clinical Admitting/Central Communication Scheduling 05/10/2022 Appointment Radiology Jeremie Rose M.D. [address] [place] [phone] 05/10/2022 Comprehensive Visit Orthopedic Surgery Warner Graves M.D. [address] [place] [phone] 05/22/2022 Appointment Laboratory Medicine Angélica Granger P.A.-C. [address] [place] [phone] 06/05/2022 Appointment Laboratory Medicine Angélica Granger P.A.-C. [address] [place] [phone] 06/19/2022 Appointment Laboratory Medicine Angélica Granger P.A.-C. [address] [place] [phone] 07/03/2022 Appointment Laboratory Medicine Angélica Granger P.A.-C. [address] [place] [phone] 07/17/2022 Appointment Laboratory Medicine Angélica Granger P.A.-C. [address] [place] [phone] 07/31/2022 Appointment Laboratory Medicine Angélica Granger P.A.-C. [address] [place] [address] [phone] 08/14/2022 Appointment Laboratory Medicine Angélica Granger P.A.-C. [address] [place] [address] [phone] 08/28/2022 Appointment Laboratory Medicine Angélica Granger P.A.-C. 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
--- OUTSIDE RECORDS SUMMARY | 2022-04-13 12:46 | XMS_ITS | Encounter Summary ---
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 [address] [place] [phone] 04/25/2022 Office Visit Otorhinolaryngology Dex Matta APRN, C.N.P., M.S.N. [address] [place] [address] [phone] 05/08/2022 Appointment Laboratory Medicine Angélica Granger P.A.-C. [address] [place] [phone] 05/08/2022 Clinical Admitting/Central Communication Scheduling 05/10/2022 Appointment Radiology Jeremie Rose M.D. [address] [place] [phone] 05/10/2022 Comprehensive Visit Orthopedic Surgery Warner Graves M.D. [address] [place] [phone] 05/22/2022 Appointment Laboratory Medicine Angélica Granger P.A.-C. [address] [place] [phone] 06/05/2022 Appointment Laboratory Medicine Angélica Granger P.A.-C. [address] [place] [phone] 06/19/2022 Appointment Laboratory Medicine Angélica Granger P.A.-C. [address] [place] [phone] 07/03/2022 Appointment Laboratory Medicine Angélica Granger P.A.-C. [address] [place] [phone] 07/17/2022 Appointment Laboratory Medicine Angélica Granger P.A.-C. [address] [place] [phone] 07/31/2022 Appointment Laboratory Medicine Angélica Granger P.A.-C. [address] [place] [address] [phone] 08/14/2022 Appointment Laboratory Medicine Angélica Granger P.A.-C. [address] [place] [address] [phone] 08/28/2022 Appointment Laboratory Medicine Angélica Granger P.A.-C. 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
--- OUTSIDE RECORDS SUMMARY | 2022-04-13 12:46 | XMS_ITS | Encounter Summary ---
:1955 Author Organization [facility] Address [address] [place] [address] Care Team Providers Name Role Phone Unavailable Primary Care Provider Unavailable Encounter Details Date Type Department Care Team Description 07/03/2012 - Hospital Encounter HX RST INFUSION Tomeka uCi, 07/10/2012 THERAPY R.N. 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 [address] [place] [phone] 04/25/2022 Office Visit Otorhinolaryngology Dex Matta APRN, C.N.P., M.S.N. [address] [place] [phone] 05/08/2022 Appointment Laboratory Medicine Angélica Granger P.A.-C. [address] [place] [phone] 05/08/2022 Clinical Admitting/Central Communication Scheduling 05/10/2022 Appointment Radiology Jeremie Rose M.D. [address] [place] [phone] 05/10/2022 Comprehensive Visit Orthopedic Surgery Warner Graves M.D. [address] [place] [address] [phone] 05/22/2022 Appointment Laboratory Medicine Angélica Granger P.A.-C. [address] [place] [phone] 06/05/2022 Appointment Laboratory Medicine Angélica Granger P.A.-C. [address] [place] [phone] 06/19/2022 Appointment Laboratory Medicine Angélica Granger P.A.-C. [address] [place] [phone] 07/03/2022 Appointment Laboratory Medicine Angélica Granger P.A.-C. [address] [place] [phone] 07/17/2022 Appointment Laboratory Medicine Angélica Granger P.A.-C. [address] [place] [phone] 07/31/2022 Appointment Laboratory Medicine Angélica Granger P.A.-C. [address] [place] [phone] 08/14/2022 Appointment Laboratory Medicine Angélica Granger P.A.-C. [address] [place] [phone] 08/28/2022 Appointment Laboratory Medicine Angélica Granger P.A.-C. 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
--- OUTSIDE RECORDS SUMMARY | 2022-04-13 12:47 | XMS_ITS | Encounter Summary ---
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 [address] [place] [phone] 04/25/2022 Office Visit Otorhinolaryngology Dex Matta APRN, C.N.P., M.S.N. [address] [place] [address] [phone] 05/08/2022 Appointment Laboratory Medicine Angélica Granger P.A.-C. [address] [place] [phone] 05/08/2022 Clinical Admitting/Central Communication Scheduling 05/10/2022 Appointment Radiology Jeremie Rose M.D. [address] [place] [phone] 05/10/2022 Comprehensive Visit Orthopedic Surgery Warner Graves M.D. [address] [place] [phone] 05/22/2022 Appointment Laboratory Medicine Angélica Granger P.A.-C. [address] [place] [phone] 06/05/2022 Appointment Laboratory Medicine Angélica Granger P.A.-C. [address] [place] [phone] 06/19/2022 Appointment Laboratory Medicine Angélica Granger P.A.-C. [address] [place] [phone] 07/03/2022 Appointment Laboratory Medicine Angélica Granger P.A.-C. [address] [place] [phone] 07/17/2022 Appointment Laboratory Medicine Angélica Granger P.A.-C. [address] [place] [phone] 07/31/2022 Appointment Laboratory Medicine Angélica Granger P.A.-C. [address] [place] [phone] 08/14/2022 Appointment Laboratory Medicine Angélica Granger P.A.-C. [address] [place] [address] [phone] 08/28/2022 Appointment Laboratory Medicine Angélica Granger P.A.-C. [address] [place] [phone] documented as of this encounter Visit Diagnoses Not on filedocumented in this encounter
--- OUTSIDE RECORDS SUMMARY | 2022-04-13 12:47 | XMS_ITS | Encounter Summary ---
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 Pulse 46 03/25/2012 6:32 AM Value from Ch artplus. CDT Temperature - - Respiratory Rate 16 03/25/2012 6:29 AM Value from C hartplus. CDT Oxygen Saturation - - Inhaled Oxygen - - Concentration Weight 73.3 kg (161 lb 9.6 03/25/2012 12:06 oz) AM CDT Height 181 cm (5' 11.26) 03/18/2012 4:31 PM CDT Body Mass Index 22.37 03/18/2012 4:31 PM CDT documented in this encounter Plan of Treatment Upcoming Encounters Date Type Specialty Care Team Description 04/24/2022 Appointment Laboratory Medicine Angélica Granger, P.A.-C. [address] [place] [address] [phone] 04/25/2022 Office Visit Otorhinolaryngology Dex Matta, RAMONA, C.N.P., M.S.N. [address] [place] [address] [phone] 05/08/2022 Appointment Laboratory Medicine Angélica Granger P.A.-C. [address] [place] [address] [phone] 05/08/2022 Clinical Admitting/Central Communication Scheduling 05/10/2022 Appointment Radiology Jeremie Rose M.D. [address] [place] [phone] 05/10/2022 Comprehensive Visit Orthopedic Surgery Warner Graves M.D. [address] [place] [address] [phone] 05/22/2022 Appointment Laboratory Medicine Angélica Granger P.A.-C. [address] [place] [phone] 06/05/2022 Appointment Laboratory Medicine Angélica Granger P.A.-C. [address] [place] [phone] 06/19/2022 Appointment Laboratory Medicine Angélica Granger P.A.-C. [address] [place] [phone] 07/03/2022 Appointment Laboratory Medicine Angélica Granger P.A.-C. [address] [place] [phone] 07/17/2022 Appointment Laboratory Medicine Angélica Granger P.A.-C. [address] [place] [phone] 07/31/2022 Appointment Laboratory Medicine Angélica Granger P.A.-C. [address] [place] [phone] 08/14/2022 Appointment Laboratory Medicine Angélica Granger P.A.-C. [address] [place] [phone] 08/28/2022 Appointment Laboratory Medicine Angélica Granger P.A.-C. [address] [place] [phone] documented as of this encounter Procedures Procedure Name Priority Date/Time Associated Comments Diagnosis ELECTROLYTE (CHEM 4) Routine 03/25/2012 5:37 Resu lts for this PANEL, S/P AM CDT procedure are i n the results section. CBC NO CALL BACK, REFLEX Routine 03/25/2012 5:37 Results for this T/S AM CDT procedure are i n the results section. TACROLIMUS LEVEL, B Routine 03/25/2012 5:37 Resul ts for this AM CDT procedure are i n the results section. BILIRUBIN, S Routine 03/25/2012 5:37 Results for this AM CDT procedure are i n the results section. ALANINE AMINOTRANSFERASE Routine 03/25/2012 5:37 Results for this (ALT), S/P AM CDT procedure are i n the results section. ASPARTATE Routine 03/25/2012 5:37 Results for this AMINOTRANSFERASE (AST), AM CDT proc edure are in S/P the results section. ALKALINE PHOSPHATASE, Routine 03/25/2012 5:37 Res ults for this S/P AM CDT procedure are i n the results section. ALBUMIN, S/P Routine 03/25/2012 5:37 Results for this AM CDT procedure are i n the results section. DX CHEST POST PICC Routine 03/24/2012 11:21 Resul ts for this PLACEMENT 1 VIEW AM CDT procedure a re in the results section. CBC NO CALL BACK, REFLEX Routine 03/24/2012 5:15 Results for this T/S AM CDT procedure are i n the results section. TACROLIMUS LEVEL, B Routine 03/24/2012 5:15 Resul ts for this AM CDT procedure are i n the results section. ELECTROLYTE (CHEM 4) Routine 03/24/2012 5:14 Resu lts for this PANEL, S/P AM CDT procedure are i n the results section. PROTHROMBIN TIME (PT), P Routine 03/24/2012 5:14 Results for this AM CDT procedure are i n the results section. BILIRUBIN, S Routine 03/24/2012 5:14 Results for this AM CDT procedure are i n the results section. ALANINE AMINOTRANSFERASE Routine 03/24/2012 5:14 Results for this (ALT), S/P AM CDT procedure are i n the results section. ASPARTATE Routine 03/24/2012 5:14 Results for this AMINOTRANSFERASE (AST), AM CDT proc edure are in S/P the results section. ALKALINE PHOSPHATASE, Routine 03/24/2012 5:14 Res ults for this S/P AM CDT procedure are i n the results section. ALBUMIN, S/P Routine 03/24/2012 5:14 Results for this AM CDT procedure are i n the results section. VANCOMYCIN, TROUGH, S Routine 03/23/2012 6:04 Res ults for this PM CDT procedure are i n the results section. V&IRAD VASCULAR & Routine 03/23/2012 3:26 Results for this INTERVENTION PM CDT procedure are i n the results section. MORPHOLOGY EVAL (SPECIAL Routine 03/23/2012 5:14 Results for this SMEAR) AM CDT procedure are i n the results section. ELECTROLYTE (CHEM 4) Routine 03/23/2012 5:14 Resu lts for this PANEL, S/P AM CDT procedure are i n the results section. CBC NO CALL BACK, REFLEX Routine 03/23/2012 5:14 Results for this T/S AM CDT procedure are i n the results section. TACROLIMUS LEVEL, B Routine 03/23/2012 5:14 Resul ts for this AM CDT procedure are i n the results section. PROTHROMBIN TIME (PT), P Routine 03/23/2012 5:14 Results for this AM CDT procedure are i n the results section. BILIRUBIN, S Routine 03/23/2012 5:14 Results for this AM CDT procedure are i n the results section. ALANINE AMINOTRANSFERASE Routine 03/23/2012 5:14 Results for this (ALT), S/P AM CDT procedure are i n the results section. ASPARTATE Routine 03/23/2012 5:14 Results for this AMINOTRANSFERASE (AST), AM CDT proc edure are in S/P the results section. ALKALINE PHOSPHATASE, Routine 03/23/2012 5:14 Res ults for this S/P AM CDT procedure are i n the results section. MAGNESIUM, S Routine 03/23/2012 5:14 Results for this AM CDT procedure are i n the results section. CALCIUM, TOT, S/P Routine 03/23/2012 5:14 Results for this AM CDT procedure are i n the results section. ALBUMIN, S/P Routine 03/23/2012 5:14 Results for this AM CDT procedure are i n the results section. ELECTROLYTE (CHEM 4) Routine 03/22/2012 5:08 Resu lts for this PANEL, S/P AM CDT procedure are i n the results section. PROTHROMBIN TIME (PT), P Routine 03/22/2012 5:08 Results for this AM CDT procedure are i n the results section. CBC WITHOUT Routine 03/22/2012 5:08 Results for this DIFFERENTIAL, B AM CDT procedure ar e in the results section. ALANINE AMINOTRANSFERASE Routine 03/22/2012 5:08 Results for this (ALT), S/P AM CDT procedure are i n the results section. ASPARTATE Routine 03/22/2012 5:08 Results for this AMINOTRANSFERASE (AST), AM CDT proc edure are in S/P the results section. PHOSPHORUS (INORGANIC), Routine 03/22/2012 5:08 R esults for this S AM CDT procedure are i n the results section. ALKALINE PHOSPHATASE, Routine 03/22/2012 5:08 Res ults for this S/P AM CDT procedure are i n the results section. MAGNESIUM, S Routine 03/22/2012 5:08 Results for this AM CDT procedure are i n the results section. BILIRUBIN DIRECT, S/P Routine 03/22/2012 5:08 Res ults for this AM CDT procedure are i n the results section. BILIRUBIN, TOT, S/P Routine 03/22/2012 5:08 Resul ts for this AM CDT procedure are i n the results section. ALBUMIN, S/P Routine 03/22/2012 5:08 Results for this AM CDT procedure are i n the results section. HX MICROBIOLOGY REPORTS Routine 03/21/2012 3:05 R esults for this PM CDT procedure are i n the results section. HX MICROBIOLOGY REPORTS Routine 03/21/2012 2:50 R esults for this PM CDT procedure are i n the results section. SODIUM, U Routine 03/21/2012 6:21 Results for this AM CDT procedure are i n the results section. ELECTROLYTE (CHEM 4) Routine 03/21/2012 5:20 Resu lts for this PANEL, S/P AM CDT procedure are i n the results section. CBC NO CALL BACK, REFLEX Routine 03/21/2012 5:20 Results for this T/S AM CDT procedure are i n the results section. TACROLIMUS LEVEL, B Routine 03/21/2012 5:20 Resul ts for this AM CDT procedure are i n the results section. PROTHROMBIN TIME (PT), P Routine 03/21/2012 5:20 Results for this AM CDT procedure are i n the results section. BILIRUBIN, S Routine 03/21/2012 5:20 Results for this AM CDT procedure are i n the results section. ALANINE AMINOTRANSFERASE Routine 03/21/2012 5:20 Results for this (ALT), S/P AM CDT procedure are i n the results section. ASPARTATE Routine 03/21/2012 5:20 Results for this AMINOTRANSFERASE (AST), AM CDT proc edure are in S/P the results section. ALKALINE PHOSPHATASE, Routine 03/21/2012 5:20 Res ults for this S/P AM CDT procedure are i n the results section. MAGNESIUM, S Routine 03/21/2012 5:20 Results for this AM CDT procedure are i n the results section. ALBUMIN, S/P Routine 03/21/2012 5:20 Results for this AM CDT procedure are i n the results section. DX HAND 2 VIEWS AND Routine 03/20/2012 4:40 Resul ts for this WRIST 2 VIEWS PM CDT procedure are in the results section. HX MICROBIOLOGY REPORTS Routine 03/20/2012 12:33 Results for this PM CDT procedure are i n the results section. HX MICROBIOLOGY REPORTS Routine 03/20/2012 12:32 Results for this PM CDT procedure are i n the results section. US ABDOMEN COMPLETE WITH Routine 03/20/2012 9:18 Results for this LIVER DOPPLER AM CDT procedure are in the results section. ABORH, RBC Routine 03/20/2012 5:36 Results for this AM CDT procedure are i n the results section. ANTIBODY SCREEN, B Routine 03/20/2012 5:36 Result s for this AM CDT procedure are i n the results section. ABG W/COOX Routine 03/20/2012 5:23 Results for this AM CDT procedure are i n the results section. AMMONIA, ARTERIAL Routine 03/20/2012 5:23 Results for this AM CDT procedure are i n the results section. LIPID PANEL, S Routine 03/20/2012 5:20 Results fo r this AM CDT procedure are i n the results section. ELECTROLYTE (CHEM 4) Routine 03/20/2012 5:20 Resu lts for this PANEL, S/P AM CDT procedure are i n the results section. VITAMIN A AND VITAMIN E, Routine 03/20/2012 5:20 Results for this S AM CDT procedure are i n the results section. THYROID FUNCTION Routine 03/20/2012 5:20 Results for this CASCADE, S AM CDT procedure are i n the results section. PROSTATE-SPECIFIC AG Routine 03/20/2012 5:20 Resu lts for this (PSA) SCRN, S AM CDT procedure are in the results section. IRON AND TOT Routine 03/20/2012 5:20 Results for this IRON-BINDING CAPACITY, AM CDT proce dure are in S/P the results section. CERULOPLASMIN, S Routine 03/20/2012 5:20 Results for this AM CDT procedure are i n the results section. ALPHA-FETOPROTEIN (AFP) Routine 03/20/2012 5:20 R esults for this TM, S AM CDT procedure are i n the results section. HBC TOTAL AB, SERUM Routine 03/20/2012 5:20 Resul ts for this AM CDT procedure are i n the results section. 1,25-DIHYDROXYVITAMIN D, Routine 03/20/2012 5:20 Results for this S AM CDT procedure are i n the results section. 25-HYDROXYVITAMIN D2 AND Routine 03/20/2012 5:20 Results for this D3, S AM CDT procedure are i n the results section. MITOCHONDRIAL ABS (M2), Routine 03/20/2012 5:20 R esults for this S AM CDT procedure are i n the results section. SMOOTH MUSCLE ABS, S Routine 03/20/2012 5:20 Resu lts for this AM CDT procedure are i n the results section. HBS ANTIBODY, SERUM Routine 03/20/2012 5:20 Resul ts for this AM CDT procedure are i n the results section. HEPATITIS B SURFACE Routine 03/20/2012 5:20 Resul ts for this ANTIGEN AM CDT procedure are i n the results section. PROTHROMBIN TIME (PT), P Routine 03/20/2012 5:20 Results for this AM CDT procedure are i n the results section. CBC WITH DIFFERENTIAL, B Routine 03/20/2012 5:20 Results for this AM CDT procedure are i n the results section. ANTINUCLEAR ABS (OZZIE), S Routine 03/20/2012 5:20 Results for this AM CDT procedure are i n the results section. ALANINE AMINOTRANSFERASE Routine 03/20/2012 5:20 Results for this (ALT), S/P AM CDT procedure are i n the results section. ASPARTATE Routine 03/20/2012 5:20 Results for this AMINOTRANSFERASE (AST), AM CDT proc edure are in S/P the results section. ELECTROPHORESIS, Routine 03/20/2012 5:20 Results for this PROTEIN, S AM CDT procedure are i n the results section. PHOSPHORUS (INORGANIC), Routine 03/20/2012 5:20 R esults for this S AM CDT procedure are i n the results section. ALKALINE PHOSPHATASE, Routine 03/20/2012 5:20 Res ults for this S/P AM CDT procedure are i n the results section. PARATHYROID HORMONE Routine 03/20/2012 5:20 Resul ts for this (PTH), S AM CDT procedure are i n the results section. GAMMA-GLUTAMYLTRANSFERAS Routine 03/20/2012 5:20 Results for this E (GGT), S/P AM CDT procedure are i n the results section. FERRITIN, S Routine 03/20/2012 5:20 Results for this AM CDT procedure are i n the results section. CALCIUM, TOT, S/P Routine 03/20/2012 5:20 Results for this AM CDT procedure are i n the results section. BILIRUBIN DIRECT, S/P Routine 03/20/2012 5:20 Res ults for this AM CDT procedure are i n the results section. BILIRUBIN, TOT, S/P Routine 03/20/2012 5:20 Resul ts for this AM CDT procedure are i n the results section. ALBUMIN, S/P Routine 03/20/2012 5:20 Results for this AM CDT procedure are i n the results section. VANCOMYCIN, TROUGH, S Routine 03/20/2012 5:20 Res ults for this AM CDT procedure are i n the results section. MICROSCOPIC MANUAL Routine 03/19/2012 6:00 Result s for this PM CDT procedure are i n the results section. DRUG ABUSE SURVEY, U Routine 03/19/2012 6:00 Resu lts for this PM CDT procedure are i n the results section. ADULTERANTS SURVEY, U Routine 03/19/2012 6:00 Res ults for this PM CDT procedure are i n the results section. URINALYSIS WITH Routine 03/19/2012 6:00 Results f or this MICROSCOPIC PM CDT procedure are i n the results section. V&IRAD VASCULAR & Routine 03/19/2012 3:26 Results for this INTERVENTION PM CDT procedure are i n the results section. DX CHEST AP OR PA AND Routine 03/19/2012 1:12 Res ults for this LATERAL 2 VIEWS PM CDT procedure ar e in the results section. DX PARANASAL SINUSES 3+ Routine 03/19/2012 1:12 R esults for this VIEWS PM CDT procedure are i n the results section. HEMOCHROMATOSIS HFE GENE Routine 03/19/2012 10:43 Results for this ANALYSIS, B AM CDT procedure are i n the results section. HX SYPHILIS ANTIBODY Routine 03/19/2012 10:42 Res ults for this CASCADE, S AM CDT procedure are i n the results section. HCV RNA DETECT/QUANT Routine 03/19/2012 10:42 Res ults for this AM CDT procedure are i n the results section. CYTOMEGALOVIRUS AB, IGM Routine 03/19/2012 10:42 Results for this AND IGG AM CDT procedure are i n the results section. HLA CLASS II SAB Routine 03/19/2012 10:42 Results for this ANTIBODY SCREEN AM CDT procedure ar e in the results section. HLA CLASS I SAB ANTIBODY Routine 03/19/2012 10:42 Results for this SCREEN AM CDT procedure are i n the results section. UCAEB-2-IUYIRTNVYKC Routine 03/19/2012 10:42 Resu lts for this PHENOTYPE, S AM CDT procedure are i n the results section. HEPATITIS A IGG AB S Routine 03/19/2012 10:42 Res ults for this AM CDT procedure are i n the results section. ZINC, S Routine 03/19/2012 10:42 Results for this AM CDT procedure are i n the results section. HIV-1/-2 AB EVALUATION Routine 03/19/2012 10:42 R esults for this AM CDT procedure are i n the results section. TROPONIN T, 5TH GEN, P Routine 03/19/2012 10:42 R esults for this AM CDT procedure are i n the results section. HX MICROBIOLOGY REPORTS Routine 03/19/2012 9:46 R esults for this AM CDT procedure are i n the results section. HX MICROBIOLOGY REPORTS Routine 03/19/2012 7:14 R esults for this AM CDT procedure are i n the results section. ELECTROLYTE (CHEM 4) Routine 03/19/2012 5:18 Resu lts for this PANEL, S/P AM CDT procedure are i n the results section. CBC NO CALL BACK, REFLEX Routine 03/19/2012 5:18 Results for this T/S AM CDT procedure are i n the results section. PROTHROMBIN TIME (PT), P Routine 03/19/2012 5:18 Results for this AM CDT procedure are i n the results section. BILIRUBIN, S Routine 03/19/2012 5:18 Results for this AM CDT procedure are i n the results section. ALANINE AMINOTRANSFERASE Routine 03/19/2012 5:18 Results for this (ALT), S/P AM CDT procedure are i n the results section. ASPARTATE Routine 03/19/2012 5:18 Results for this AMINOTRANSFERASE (AST), AM CDT proc edure are in S/P the results section. ALKALINE PHOSPHATASE, Routine 03/19/2012 5:18 Res ults for this S/P AM CDT procedure are i n the results section. MAGNESIUM, S Routine 03/19/2012 5:18 Results for this AM CDT procedure are i n the results section. CALCIUM, TOT, S/P Routine 03/19/2012 5:18 Results for this AM CDT procedure are i n the results section. ALBUMIN, S/P Routine 03/19/2012 5:18 Results for this AM CDT procedure are i n the results section. TACROLIMUS LEVEL, B Routine 03/19/2012 5:17 Resul ts for this AM CDT procedure are i n the results section. MICROSCOPIC MANUAL Routine 03/18/2012 11:14 Resul ts for this PM CDT procedure are i n the results section. KETONES,QL(U) Routine 03/18/2012 11:14 Results fo r this PM CDT procedure are i n the results section. GRAM'S ST, U Routine 03/18/2012 11:14 Results for this PM CDT procedure are i n the results section. URINALYSIS WITH Routine 03/18/2012 11:14 Results for this MICROSCOPIC PM CDT procedure are i n the results section. HX MICROBIOLOGY REPORTS Routine 03/18/2012 7:33 R esults for this PM CDT procedure are i n the results section. HX MICROBIOLOGY REPORTS Routine 03/18/2012 7:32 R esults for this PM CDT procedure are i n the results section. HX BACTERIAL ENTERIC Routine 03/18/2012 12:12 Res ults for this PATHOGENS PCR-ID PM CDT procedure a re in the results section. C. DIFFICILE TOXIN PCR, Routine 03/18/2012 12:12 Results for this F PM CDT procedure are i n the results section. TACROLIMUS LEVEL, B Routine 03/18/2012 7:59 Resul ts for this AM CDT procedure are i n the results section. documented in this encounter Results (ABNORMAL) Bilirubin (03/25/2012 5:37 AM CDT) Patholo gist Method Time Signature Bilirubin, 5.1 (H) 0.1 - 1.0 [facility] Total, S MG/DL [facility] Comment: Drawn From PICC Bilirubin, Direct, S 3.3 (H) 0.0 - 0.3 MG/DL [facility] Comment: Drawn From PICC Specimen Anatomical Collection Method Collection Time Receive d Time (Source) Location / / Volume Laterality 03/25/2012 5:37 AM 2 5:37 CDT AM CDT Narrative [facility] - 03/25/2012 6:41 AM CDT Drawn From PICC Historical Provider LAB BLOOD ADD-ON Performing Organization Address City/State/ZIP Code Phon e Number [facility] - [address] [place], [place] [address] [facility] (ABNORMAL) Electrolyte (Chem 4) Panel (03/25/2012 5:37 AM CDT) athologist Signature Sodium, S 132 (L) 135 - 145 [facility] MMOL/L [facility] Comment: Drawn From PICC Potassium, S 4.4 3.6 - 5.2 MMOL/L [facility] Comment: Drawn From PICC Chloride, S 101 100 - 108 MMOL/L [facility] Comment: Drawn From PICC HX Bicarbonate, P/S 20 (L) 22 - 29 MMOL/L M [facility] Comment: Drawn From PICC Creatinine 1.3 0.8 - 1.3 MG/DL [facility] Comment: Drawn From PICC eGFR Non-Black/ 57 (L) >60 ML/MIN/BSA [facility] Comment: Drawn From PICC eGFR-Black/ >60 >60 ML/MIN/BSA [facility] Comment: Drawn From PICC BUN (Blood Urea Nitrogen), S 35 (H) 8 - 24 MG/DL [facility] Comment: Drawn From PICC Anion Gap 11 7 - 15 [facility] - [facility] Comment: Drawn From PICC Glucose, S 171 (H) 70 - 140 MG/DL [facility] Comment: Drawn From PICC Specimen Anatomical Collection Method Collection Time Receive d Time (Source) Location / / Volume Laterality 03/25/2012 5:37 AM 2 5:37 CDT AM CDT Narrative [facility] - 03/25/2012 6:41 AM CDT Drawn From PICC Historical Provider LAB BLOOD ADD-ON Performing Organization Address City/State/ZIP Code Phon e Number [facility] - [address] [place] [id number] [facility] (ABNORMAL) Alkaline Phosphatase (03/25/2012 5:37 AM CDT) Patholo gist Method Time Signature Alkaline 206 (H) 45 - 115 [facility] Phosphatase, S U/L [facility] Comment: Drawn From PICC Specimen Anatomical Collection Method Collection Time Receive d Time (Source) Location / / Volume Laterality 03/25/2012 5:37 AM 2 5:37 CDT AM CDT Narrative [facility] - 03/25/2012 6:41 AM CDT Drawn From PICC Historical Provider LAB BLOOD ADD-ON Performing Organization Address City/State/ZIP Code Phon e Number [facility] - [address] [place] [phone] [facility] (ABNORMAL) Albumin (03/25/2012 5:37 AM CDT) P athologist Signature Albumin, S 3.1 (L) 3.5 - 5.0 [facility] G/DL [facility] Comment: Drawn From PICC Specimen Anatomical Collection Method Collection Time Receive d Time (Source) Location / / Volume Laterality 03/25/2012 5:37 AM 2 5:37 CDT AM CDT Narrative [facility] - 03/25/2012 6:41 AM CDT Drawn From PICC Historical Provider LAB BLOOD ADD-ON Performing Organization Address City/State/ZIP Code Phon e Number [facility] - [address] [facility], [place] [address] [facility] Tacrolimus Level (03/25/2012 5:37 AM CDT) P athologist Signature Tacrolimus, B 6.1 5.0-15.0 [facility] (Trough) [facility] - NG/ML [facility] Comment: Drawn From PICC Tacrolimus Blood Date of Last Dose . [facility] - [facility] Comment: Drawn From PICC ? Not Specified ? Tacrolimus Time of Last Dose . M [facility] Comment: Drawn From PICC ? Not Specified ? Tacrolimus Blood Dose, mg . MG [facility] Comment: Drawn From PICC ? Not Specified ? Specimen Anatomical Collection Method Collection Time Receive d Time (Source) Location / / Volume Laterality 03/25/2012 5:37 AM 2 5:37 CDT AM CDT Narrative [facility] - [facility] - 03/25/2012 11:57 AM CDT Drawn From PICC Historical Provider LAB BLOOD NON ADD-ON Performing Organization Address City/State/ZIP Code Phon e Number [facility] - [address] [place], [place] [address] [facility] (ABNORMAL) ALT (Alanine Aminotransferase) (03/25/2012 5:37 AM CDT) [facility] Method Time Signature Alanine 94 (H) 7 - 55 [facility] Aminotransferase U/L LABORATORIES - (ALT), S [facility] Comment: Drawn From PICC Specimen Anatomical Collection Method Collection Time Receive d Time (Source) Location / / Volume Laterality 03/25/2012 5:37 AM 2 5:37 CDT AM CDT Narrative [facility] - 03/25/2012 6:41 AM CDT Drawn From PICC Historical Provider LAB BLOOD ADD-ON Performing Organization Address City/State/ZIP Code Phon e Number [facility] - [address] [place], [place] [address] [facility] (ABNORMAL) CBC with Differential - No Alerts (03/25/2012 5:37 AM CDT) athologist Signature Hemoglobin 9.7 (L) 13.5 - [facility] 17.5 G/DL [facility] Comment: Drawn From PICC Hematocrit 29.3 (L) 38.8 - 50.0 % [facility] Comment: Drawn From PICC RBC Distrib Width 15.4 11.8 - 15.6 % [facility] [facility] Comment: Drawn From PICC Platelet Count 262 150 - 450 X10(9)/L [facility] Comment: Drawn From PICC Leukocytes 7.8 3.5 - 10.5 X10(9)/L [facility] Comment: Drawn From PICC Neutrophils 4.04 1.70 - 7.00 X10(9)/L [facility] Comment: Drawn From PICC ? Rechecked ? Eosinophils 0.48 0.05 - 0.50 X10(9)/L [facility] Comment: Drawn From PICC Basophils 0.03 0.00 - 0.30 X10(9)/L [facility] Comment: Drawn From PICC Erythrocytes 3.37 (L) 4.32 - 5.72 X10(12)/L [facility] Comment: Drawn From PICC MCV 86.9 81.2 - 95.1 FL [facility] Comment: Drawn From PICC Lymphocytes 2.51 0.90 - 2.90 X10(9)/L [facility] Comment: Drawn From PICC Monocytes 0.71 0.30 - 0.90 X10(9)/L [facility] Comment: Drawn From PICC Specimen Anatomical Collection Method Collection Time Receive d Time (Source) Location / / Volume Laterality 03/25/2012 5:37 AM 2 5:37 CDT AM CDT Narrative [facility] - 03/25/2012 6:55 AM CDT Drawn From PICC Historical Provider LAB BLOOD NON ADD-ON Performing Organization Address City/[facility] Phon e Number [facility] - [address] [place], [place] [address] [facility] (ABNORMAL) AST (Aspartate Aminotransferase) (03/25/2012 5:37 AM CDT) [facility] gist Method Time Signature AST, Total, S 104 (H) 8 - 48 U/L [facility] Comment: Drawn From PICC Specimen Anatomical Collection Method Collection Time Receive d Time (Source) Location / / Volume Laterality 03/25/2012 5:37 AM 2 5:37 CDT AM CDT Narrative [facility] - 03/25/2012 6:41 AM CDT Drawn From PICC Historical Provider LAB BLOOD ADD-ON Performing Organization Address City/State/[facility] Code Phon e Number [facility]ATORIES - [address] [place] [address] [facility] DX Chest Post PICC Placement 1 View (03/24/2012 11:21 AM CDT) Anatomical Region Laterality Modality Chest N/A Radiographic Imaging Specimen (Source) Anatomical Collection Method Collection Time Re ceived Time Location / / Volume Laterality 03/24/2012 11:21 AM CDT Narrative 03/24/2012 11:32 AM CDT 24-Mar-2012 11:21:00 ??Exam: Chest-PICC Indications: Right - PICC Placement ORIGINAL REPORT - 24-Mar-2012 11:32:00 Chest; 1 view: Right PICC with tip in the mid SVC. Electronically signed by: ?? Parveen PETTIT [id number] 24-Mar-2012 11:32 Procedure Note Chelsy Cannon M.D. - 09/20/2017For matting of this note might be different from the original. 24-Mar-2012 11:21:00 Exam: Chest-PICC Indications: Right - PICC Placement ORIGINAL REPORT - 24-Mar-2012 11:32:00 Chest; 1 view: Right PICC with tip in the mid SVC. Electronically signed by: Parveen PETTIT [id number] 24-Mar-2012 11:32 Anatoliy Bernardo M.D. IMG DIAGNOSTIC IMAGING PROCE DURES (ABNORMAL) Tacrolimus Level (03/24/2012 5:15 AM CDT) [facility] Method Time Signature Tacrolimus, B 4.7 (L) 5.0-15.0 [facility] (Trough) LABORATORIES - NG/ML [facility] Tacrolimus . [facility] Blood Date of LABORATORIES - Last Dose [facility] Comment: Not Specified Tacrolimus Time of Last Dose . [facility] Comment: Not Specified Tacrolimus Blood Dose, mg . MG [facility]ORATORIES - [facility] Comment: Not Specified Specimen Anatomical Collection Method Collection Time Receive d Time (Source) Location / / Volume Laterality 03/24/2012 5:15 AM 2 5:15 CDT AM CDT Historical Provider LAB BLOOD NON ADD-ON Performing Organization Address City/State/ZIP Code Phon e Number [facility]IES - [address] [place] [phone] [facility] (ABNORMAL) CBC with Differential - No Alerts (03/24/2012 5:15 AM CDT) [facility] Method Time Signature Hemoglobin 10.2 (L) 13.5 - [facility] 17.5 G/DL LABORATORIES - [facility] Hematocrit 30.3 (L) 38.8 - [facility] 50.0 % LABORATORIES - [facility] RBC Distrib 15.2 11.8 - [facility] Width 15.6 % LABORATORIES - [facility] Platelet Count 307 150 - 450 [facility] X10(9)/L LABORATORIES - [facility] Lymphocytes 2.45 0.90 - [facility] 2.90 LABORATORIES - X10(9)/L [facility] Monocytes 1.04 (H) 0.30 - [facility] 0.90 LABORATORIES - X10(9)/L [facility] Eosinophils 0.51 (H) 0.05 - [facility] 0.50 LABORATORIES - X10(9)/L [facility] Basophils 0.03 0.00 - [facility] 0.30 LABORATORIES - X10(9)/L [facility] Erythrocytes 3.45 (L) 4.32 - [facility] 5.72 LABORATORIES - X10(12)/L [facility] MCV 87.8 81.2 - [facility] 95.1 FL LABORATORIES - [facility] Leukocytes 9.1 3.5 - [facility] 10.5 LABORATORIES - X10(9)/L [facility] Neutrophils 5.03 1.70 - [facility] 7.00 LABORATORIES - X10(9)/L [facility] Comment: Rechecked Specimen Anatomical Collection Method Collection Time Receive d Time (Source) Location / / Volume Laterality 03/24/2012 5:15 AM 2 5:15 CDT AM CDT Historical Provider LAB BLOOD NON ADD-ON Performing Organization Address City/State/ZIP Code Phon e Number [facility]IES - [address] [place], [place] [address] [facility] (ABNORMAL) PT (Prothrombin Time) with INR (03/24/2012 5:14 AM CDT) [facility] Method Time Signature Prothrombin 14.1 (H) 9.5 - [facility] Time, P 13.8 SEC LABORATORIES - [facility] INR 1.2 0.8 - 1.2 [facility] LABORATORIES - [facility] Specimen Anatomical Collection Method Collection Time Receive d Time (Source) Location / / Volume Laterality 03/24/2012 5:14 AM 2 5:14 CDT AM CDT Historical Provider LAB BLOOD ADD-ON Performing Organization Address City/[facility]/ZIP Code Phon e Number [facility]IES - [address] [place], [place] [address] [facility] (ABNORMAL) Bilirubin (03/24/2012 5:14 AM CDT) [facility] gist Method Time Signature Bilirubin, 6.0 (H) 0.1 - 1.0 [facility] Total, S MG/DL LABORATORIES [facility] Bilirubin, 4.0 (H) 0.0 - 0.3 [facility] Direct, S MG/DL [facility] Specimen Anatomical Collection Method Collection Time Receive d Time (Source) Location / / Volume Laterality 03/24/2012 5:14 AM 2 5:14 CDT AM CDT Historical Provider LAB BLOOD ADD-ON Performing Organization Address City/[facility] Phon e Number [facility]IES - [address], [place] [address] [facility] (ABNORMAL) AST (Aspartate Aminotransferase) (03/24/2012 5:14 AM CDT) [facility] Method Time Signature AST, Total, S 109 (H) 8 - 48 U/L [facility] Specimen Anatomical Collection Method Collection Time Receive d Time (Source) Location / / Volume Laterality 03/24/2012 5:14 AM 2 5:14 CDT AM CDT Historical Provider LAB BLOOD ADD-ON Performing Organization Address City/[facility] Code Phon e Number [facility]IES - [address] [place], [place] [address] [facility] (ABNORMAL) Alkaline Phosphatase (03/24/2012 5:14 AM CDT) [facility] Method Time Signature Alkaline 203 (H) 45 - 115 [facility] Phosphatase, S U/L [facility] Specimen Anatomical Collection Method Collection Time Receive d Time (Source) Location / / Volume Laterality 03/24/2012 5:14 AM 2 5:14 CDT AM CDT Historical Provider LAB BLOOD ADD-ON Performing Organization Address City/[facility]/ZIP Code Phon e Number [facility]IES - [address] [facility] [place] [address] [facility] (ABNORMAL) ALT (Alanine Aminotransferase) (03/24/2012 5:14 AM CDT) [facility] Method Time Signature Alanine 93 (H) 7 - 55 [facility] Aminotransferase U/L LABORATORIES - (ALT), S [facility] Specimen Anatomical Collection Method Collection Time Receive d Time (Source) Location / / Volume Laterality 03/24/2012 5:14 AM 2 5:14 CDT AM CDT Historical Provider LAB BLOOD ADD-ON Performing Organization Address City/State/ZIP Code Phon e Number [facility]IES - [address] [place], [place] [address] [facility] (ABNORMAL) Electrolyte (Chem 4) Panel (03/24/2012 5:14 AM CDT) [facility] Method Time Signature Sodium, S 131 (L) 135 - 145 [facility] MMOL/L LABORATORIES - [facility] Potassium, S 4.4 3.6 - 5.2 [facility] MMOL/L LABORATORIES - [facility] eGFR-Black/Afri >60 >60 [facility] can [place] ML/MIN/BS LABORATORIES - A [facility] BUN (Blood Urea 32 (H) 8 - 24 [facility] Nitrogen), S MG/DL LABORATORIES - [facility] Chloride, S 99 (L) 100 - 108 [facility] MMOL/L LABORATORIES - [facility] HX Bicarbonate, 22 22 - 29 [facility] P/S MMOL/L LABORATORIES - [facility] Creatinine 1.1 0.8 - 1.3 [facility] MG/DL LABORATORIES - [facility] eGFR >60 >60 [facility] Non-Black/Afric ML/MIN/BS LABORATORIES - an [place] A [facility] Anion Gap 10 7 - 15 [facility] LABORATORIES - [facility] Glucose, S 135 70 - 140 [facility] MG/DL LABORATORIES - [facility] Specimen Anatomical Collection Method Collection Time Receive d Time (Source) Location / / Volume Laterality 03/24/2012 5:14 AM 2 5:14 CDT AM CDT Historical Provider LAB BLOOD ADD-ON Performing Organization Address City/[facility]/ZIP Code Phon e Number [facility]ATORIES - [address] [place], [place] [address] [facility] (ABNORMAL) Albumin (03/24/2012 5:14 AM CDT) P athologist Signature Albumin, S 3.1 (L) 3.5 - 5.0 [facility] G/DL LABORATORIES [facility] Specimen Anatomical Collection Method Collection Time Receive d Time (Source) Location / / Volume Laterality 03/24/2012 5:14 AM 2 5:14 CDT AM CDT Historical Provider LAB BLOOD ADD-ON Performing Organization Address City/State/ZIP Code Phon e Number [facility] LAB[facility]ATORIES - [address] [place], [place] [address] [facility] Vancomycin, Trough (03/23/2012 6:04 PM CDT) Patholo gist Method Time Signature Vancomycin, 24.8 SeeComment [facility] Trough, S MCG/ML [facility] Comment: Reference Range: ? 10.0 - 20.0 (Therapeutic concentration), 15.0 - 20.0 ? (Complicated infections) ? Specimen Anatomical Collection Method Collection Time Receive d Time (Source) Location / / Volume Laterality 03/23/2012 6:04 PM 2 6:04 CDT PM CDT Flaquita Lopez Pharm.D., R.Ph. LAB BLOOD NON ADD-ON Performing Organization Address City/State/ZIP Code Phon e Number [facility] LABORATORIES - [address] [place], [place] [address] [facility] V&IRAD Vascular & Intervention (03/23/2012 3:26 PM CDT) Anatomical Region Laterality Modality N/A X-Ray Angiography Specimen (Source) Anatomical Collection Method Collection Time Re ceived Time Location / / Volume Laterality 03/23/2012 3:26 PM CDT Narrative 03/23/2012 6:08 PM CDT 23-Mar-2012 15:26:00 ??Exam: V&IRAD Vascular & Intervention Indications: Tube cholangiogram Day 5 S/P hepatic transplant ORIGINAL REPORT - 23-Mar-2012 18:08:00 PROCEDURE: Cholangiogram performed on patient's left transhepatic biliary drainage catheter. ?? 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 This cul-de-sac also communicates with a dilated common h epatic duct which goes to a more normal caliber common bile duct that drains through the ampulla into the small bowel. There are filling defects and debris within the dilated common hepatic duct. The dr juan controls the area well and flushes a nd aspirates easily. The patient tolerated the procedure well with no immediate complications. Recommend flushing with 5mL twice daily. Repeat cholangiogram in two to three weeks. PREPROCEDURE: Patient seen, evaluated, a nd history reviewed. Discussed risks, benefits, and alternatives for procedure and obtained informed consent. The patient understood the information and questions answered. Immediately prior to starting the procedure in the presence of the assisting personnel, a procedural pause was conducted to verify correct patient identity and verification of procedure to be performed and as applicable, correct si de and site, correct patient position, availability of implants, special equipment, or special requirements, and all image and specimen identification data. The r oles and responsibilities of care team zurdo anderson, residents, and fellows were discussed. ?? Electronically signed by: ?? Latoya PETTIT [id number] 23-Mar-2012 18:08 Procedure Note Santana Schwab M.D., Ph.D. - 09/21/19 18 23-Mar-2012 15:26:00 Exam: V&IRAD Vascul ar & Intervention Indications: Tube cholangiogram Day 5 S/P hepatic transplant ORIGINAL REPORT - 23-Mar-2012 18:08:00 PROCEDURE: Cholangiogram performed on e patient's left transhepatic biliary drainage catheter. 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 This cul-de-sac also communicates with a dilated common hepatic duct which goes to a more normal caliber common chula e duct that drains through the ampulla into the small bowel. There are filling defects and debris within the dilated common hepatic duct. The drain controls the area well and flushes and aspirates easily. The patien t tolerated the procedure well with no immediate complications. Recommend flushing with 5mL twice daily. Repeat cholangiogram in two to three weeks. PREPROCEDURE: Patient seen, evaluated, a nd history reviewed. Discussed risks, benefits, and alternatives for procedure and obtained informed consent. The patient understood the information and questions answered. Immediately prior to starting the proced ure in the presence of the assisting personnel, a procedural pause was conducted to verify correct patient identity and verification of procedure to be performed and as applicable, correct side and site, corre ct patient position, availability of implants, special equipment, or special requirements, and all image and specimen identification data. The roles and responsibilities of care team members, residents, and fellows were dis cussed. Electronically signed by: Latoya PETTIT [phone] 23-Mar-2012 18:08 Curt Nicholas M.D. IMG IR PROCEDURES Morphology Evaluation (Special smear) (03/23/2012 5:14 AM CDT) [facility] Method Time Signature Monocytes 10 1 - 11 % [facility] Eosinophils 7 0 - 7 % [facility] Neutrophilic Segs 66 42 - 75 % [facility] and Bands [facility] Lymphocytes 16 16 - 52 % [facility] Basophils 1 0 - 4 % [facility] Manual Absolute 7.26 X10(9)/L [facility] Neutrophil Count LABORATORIES - [facility] Comment: The manual absolute neutrophil count is derived from a ? manual differential count and therefore is not exactly ? comparable to the automated absolute rui trophil count. ? Specimen Anatomical Collection Method Collection Time Receive d Time (Source) Location / / Volume Laterality 03/23/2012 5:14 AM 2 5:14 CDT AM CDT Cristi Tee M.D. LAB PATHOLOGY/CYTOLOGY ORDER OSMEL Performing Organization Address City/State/ZIP Code Phon e Number [facility] LABORATORIES - [address] [place], [place] [address] [facility] Tacrolimus Level (03/23/2012 5:14 AM CDT) Analysis Performed At Patho logist Time Signature Tacrolimus, B 5.4 5.0-15.0 [facility] (Trough) LABORATORIES - NG/ML [facility] Tacrolimus . [facility] Blood Date of LABORATORIES - Last Dose [facility] Comment: Not Specified Tacrolimus Time of Last Dose . [facility] Comment: Not Specified Tacrolimus Blood Dose, mg . MG [facility] LABORATORIES - [facility] Comment: Not Specified Specimen Anatomical Collection Method Collection Time Receive d Time (Source) Location / / Volume Laterality 03/23/2012 5:14 AM 2 5:14 CDT AM CDT Cristi Tee M.D. LAB BLOOD NON ADD-ON Performing Organization Address City/State/ZIP Code Phon e Number [facility] - [address] [place] [address] [facility] (ABNORMAL) AST (Aspartate Aminotransferase) (03/23/2012 5:14 AM CDT) [facility] Method Time Signature AST, Total, S 112 (H) 8 - 48 U/L [facility] Specimen Anatomical Collection Method Collection Time Receive d Time (Source) Location / / Volume Laterality 03/23/2012 5:14 AM 2 5:14 CDT AM CDT Cristi Tee M.D. LAB BLOOD ADD-ON Performing Organization Address City/[facility]/ZIP Code Phon e Number [facility] - [address] [place] [address] [facility] PT (Prothrombin Time) with INR (03/23/2012 5:14 AM CDT) [facility] Method Time Signature Prothrombin 13.6 9.5 - 13.8 [facility] Time, P SEC [facility] INR 1.1 0.8 - 1.2 [facility] Specimen Anatomical Collection Method Collection Time Receive d Time (Source) Location / / Volume Laterality 03/23/2012 5:14 AM 2 5:14 CDT AM CDT Cristi Tee M.D. LAB BLOOD ADD-ON Performing Organization Address City/State/ZIP Code Phon e Number [facility] LABORATORIES - [address] [place] [address] [facility] Magnesium (03/23/2012 5:14 AM CDT) P athologist Signature Magnesium, S 2.0 1.7 - 2.3 [facility] MG/DL LABORATORIES [facility] Specimen Anatomical Collection Method Collection Time Receive d Time (Source) Location / / Volume Laterality 03/23/2012 5:14 AM 2 5:14 CDT AM CDT Cristi Tee M.D. LAB BLOOD ADD-ON Performing Organization Address City/State/ZIP Code Phon e Number [facility] - [address] [place] [address] [facility] (ABNORMAL) Bilirubin (03/23/2012 5:14 AM CDT) [facility] Method Time Signature Bilirubin, 7.3 (H) 0.1 - 1.0 [facility] Total, S MG/DL LABORATORIES - [facility] Bilirubin, 5.0 (H) 0.0 - 0.3 [facility] Direct, S MG/DL LAB[facility]ATORIES - [facility] Specimen Anatomical Collection Method Collection Time Receive d Time (Source) Location / / Volume Laterality 03/23/2012 5:14 AM 2 5:14 CDT AM CDT Critsi Tee M.D. LAB BLOOD ADD-ON Performing Organization Address City/State/ZIP Code Phon e Number [facility] LABORATORIES - [address] [place] [address] [facility] Calcium, Total (03/23/2012 5:14 AM CDT) P athologist Signature Calcium, 9.0 8.9 - 10.1 [facility] Total, S MG/DL LABORATORIES - [facility] Specimen Anatomical Collection Method Collection Time Receive d Time (Source) Location / / Volume Laterality 03/23/2012 5:14 AM 2 5:14 CDT AM CDT Cristi Tee M.D. LAB BLOOD ADD-ON Performing Organization Address City/State/ZIP Code Phon e Number [facility] LABORATORIES - [address] [place] [address] [facility] (ABNORMAL) ALT (Alanine Aminotransferase) (03/23/2012 5:14 AM CDT) [facility] Method Time Signature Alanine 92 (H) 7 - 55 [facility] Aminotransferase U/L LABORATORIES - (ALT), S [facility] Specimen Anatomical Collection Method Collection Time Receive d Time (Source) Location / / Volume Laterality 03/23/2012 5:14 AM 2 5:14 CDT AM CDT Cristi Tee M.D. LAB BLOOD ADD-ON Performing Organization Address City/State/ZIP Code Phon e Number [facility] LABORATORIES - [address] [place] [address] [facility] (ABNORMAL) Alkaline Phosphatase (03/23/2012 5:14 AM CDT) [facility] Method Time Signature Alkaline 207 (H) 45 - 115 [facility] Phosphatase, S U/L LABORATORIES - [facility] Specimen Anatomical Collection Method Collection Time Receive d Time (Source) Location / / Volume Laterality 03/23/2012 5:14 AM 2 5:14 CDT AM CDT Cristi Tee M.D. LAB BLOOD ADD-ON Performing Organization Address City/[facility] Code Phon e Number [facility] LABORATORIES - [address] [place] [address] [facility] (ABNORMAL) Electrolyte (Chem 4) Panel (03/23/2012 5:14 AM CDT) [facility] Method Time Signature Chloride, S 101 100 - 108 [facility] MMOL/L LABORATORIES - [facility] HX Bicarbonate, 21 (L) 22 - 29 [facility] P/S MMOL/L LABORATORIES - [facility] Creatinine 1.1 0.8 - 1.3 [facility] MG/DL LABORATORIES - [facility] eGFR >60 >60 [facility] Non-Black/Afric ML/MIN/BS LABORATORIES - [place] A [facility] eGFR-Black/Afri >60 >60 [facility] can [place] ML/MIN/BS LABORATORIES - [facility] BUN (Blood Urea 23 8 - 24 [facility] Nitrogen), S MG/DL [facility]ATORIES - [facility] Sodium, S 133 (L) 135 - 145 [facility] MMOL/L [facility] - [facility] Potassium, S 4.6 3.6 - 5.2 [facility] MMOL/L [facility] - [facility] Anion Gap 11 7 - 15 [facility] - [facility] Glucose, S 94 70 - 140 [facility] MG/DL LABORATORIES - [facility] Specimen Anatomical Collection Method Collection Time Receive d Time (Source) Location / / Volume Laterality 03/23/2012 5:14 AM 2 5:14 CDT AM CDT Cristi Tee M.D. LAB BLOOD ADD-ON Performing Organization Address City/[facility]/ZIP Code Phon e Number [facility] LABORATORIES - [address] [address] [facility] (ABNORMAL) CBC with Differential - No Alerts (03/23/2012 5:14 AM CDT) [facility] Method Time Signature Hemoglobin 10.1 (L) 13.5 - [facility] 17.5 G/DL [facility] Hematocrit 29.7 (L) 38.8 - [facility] 50.0 % LABORATORIES - [facility] Erythrocytes 3.49 (L) 4.32 - [facility] 5.72 LABORATORIES - X10(12)/L [facility] MCV 85.1 81.2 - [facility] 95.1 FL [facility] RBC Distrib 15.3 11.8 - [facility] Width 15.6 % [facility] Platelet Count 285 150 - 450 [facility] X10(9)/L [facility] Leukocytes 11.0 (H) 3.5 - [facility] 10.5 LABORATORIES - X10(9)/L [facility] Neutrophils SeeComment X10(9)/L [facility] Comment: Auto-diff results not valid. Se e manual differential. Specimen Anatomical Collection Method Collection Time Receive d Time (Source) Location / / Volume Laterality 03/23/2012 5:14 AM 2 5:14 CDT AM CDT Cristi Tee M.D. LAB BLOOD NON ADD-ON Performing Organization Address City/[facility] Phon e Number [facility] LABORATORIES - [address] (ABNORMAL) Albumin (03/23/2012 5:14 AM CDT) P athologist Signature Albumin, S 3.2 (L) 3.5 - 5.0 [facility] G/DL [facility] Specimen Anatomical Collection Method Collection Time Receive d Time (Source) Location / / Volume Laterality 03/23/2012 5:14 AM 2 5:14 CDT AM CDT Cristi Tee M.D. LAB BLOOD ADD-ON Performing Organization Address City/[facility] Phon e Number [facility] LABORATORIES - [address] [place] [phone] [facility] (ABNORMAL) Bilirubin, Total (03/22/2012 5:08 AM CDT) Patholo gist Method Time Signature Bilirubin, 8.3 (H) 0.1 - 1.0 [facility] Total, S MG/DL LABORATORIES [facility] Specimen Anatomical Collection Method Collection Time Receive d Time (Source) Location / / Volume Laterality 03/22/2012 5:08 AM 2 5:08 CDT AM CDT Joselyn Fay M.D. LAB BLOOD ADD-ON Performing Organization Address City/State/ZIP Code Phon e Number [facility]ORATORIES - [address] [place] [address] [facility] Magnesium (03/22/2012 5:08 AM CDT) P athologist Signature Magnesium, S 1.9 1.7 - 2.3 [facility] MG/DL LABORATORIES - [facility] Specimen Anatomical Collection Method Collection Time Receive d Time (Source) Location / / Volume Laterality 03/22/2012 5:08 AM 2 5:08 CDT AM CDT Joselyn Fay M.D. LAB BLOOD ADD-ON Performing Organization Address City/[facility] Code Phon e Number [facility] LABORATORIES - [address] [place] [phone] [facility] (ABNORMAL) Electrolyte (Chem 4) Panel (03/22/2012 5:08 AM CDT) Patholo gist Method Time Signature Chloride, S 103 100 - 108 [facility] MMOL/L LABORATORIES - [facility] HX Bicarbonate, 20 (L) 22 - 29 [facility] P/S MMOL/L LABORATORIES - [facility] Creatinine 1.1 0.8 - 1.3 [facility] MG/DL LABORATORIES [facility] eGFR >60 >60 [facility] Non-Black/Afric ML/MIN/BS LABORATORIES - [place] [facility] Anion Gap 11 7 - 15 [facility] Glucose, S 180 (H) 70 - 140 [facility] MG/DL [facility] Sodium, S 134 (L) 135 - 145 [facility] MMOL/L [facility] Potassium, S 4.1 3.6 - 5.2 [facility] MMOL/L [facility] eGFR-Black/Afri >60 >60 [facility] can [place] ML/MIN/BS LABORATORIES - A [facility] BUN (Blood Urea 26 (H) 8 - 24 [facility] Nitrogen), S MG/DL LABORATORIES [facility] Specimen Anatomical Collection Method Collection Time Receive d Time (Source) Location / / Volume Laterality 03/22/2012 5:08 AM 2 5:08 CDT AM CDT Joselyn Fay M.D. LAB BLOOD ADD-ON Performing Organization Address City/State/ZIP Code Phon e Number [facility] LABORATORIES - [address] [place] [address] [facility] (ABNORMAL) ALT (Alanine Aminotransferase) (03/22/2012 5:08 AM CDT) [facility] Method Time Signature Alanine 73 (H) 7 - 55 [facility] Aminotransferase U/L LABORATORIES - (ALT), S [facility] Specimen Anatomical Collection Method Collection Time Receive d Time (Source) Location / / Volume Laterality 03/22/2012 5:08 AM 2 5:08 CDT AM CDT Joselyn Fay M.D. LAB BLOOD ADD-ON Performing Organization Address City/[facility]/ZIP Code Phon e Number [facility]ORATORIES - [address] [address] [facility] (ABNORMAL) CBC without Differential (03/22/2012 5:08 AM CDT) [facility] Method Time Signature Erythrocytes 3.26 (L) 4.32 - [facility] 5.72 LABORATORIES - X10(12)/L [facility] MCV 86.2 81.2 - [facility] 95.1 FL LABORATORIES - [facility] RBC Distrib 15.2 11.8 - [facility] Width 15.6 % LABORATORIES - [facility] Platelet Count 258 150 - 450 [facility] X10(9)/L LABORATORIES - [facility] Leukocytes 8.3 3.5 - [facility] 10.5 LABORATORIES - X10(9)/L [facility] Hemoglobin 9.6 (L) 13.5 - [facility] 17.5 G/DL LABORATORIES - [facility] Hematocrit 28.1 (L) 38.8 - [facility] 50.0 % LABORATORIES - [facility] Specimen Anatomical Collection Method Collection Time Receive d Time (Source) Location / / Volume Laterality 03/22/2012 5:08 AM 2 5:08 CDT AM CDT Joselyn Fay M.D. LAB BLOOD ADD-ON Performing Organization Address City/[facility]/ZIP Code Phon e Number [facility] LABORATORIES - [address] [place], [place] [address] [facility] (ABNORMAL) Bilirubin, Direct (03/22/2012 5:08 AM CDT) [facility] Method Time Signature Bilirubin, 5.7 (H) 0.0 - 0.3 [facility] Direct, S MG/DL [facility] Specimen Anatomical Collection Method Collection Time Receive d Time (Source) Location / / Volume Laterality 03/22/2012 5:08 AM 2 5:08 CDT AM CDT Joselyn Fay M.D. LAB BLOOD ADD-ON Performing Organization Address City/[facility]/ZIP Code Phon e Number [facility] - [address] [place], [place] [address] [facility] (ABNORMAL) Alkaline Phosphatase (03/22/2012 5:08 AM CDT) Patholo gist Method Time Signature Alkaline 202 (H) 45 - 115 [facility] Phosphatase, S U/L [facility] Specimen Anatomical Collection Method Collection Time Receive d Time (Source) Location / / Volume Laterality 03/22/2012 5:08 AM 2 5:08 CDT AM CDT Joselyn Fay M.D. LAB BLOOD ADD-ON Performing Organization Address City/[facility]/ZIP Code Phon e Number [facility] - [address] [phone] [facility] (ABNORMAL) AST (Aspartate Aminotransferase) (03/22/2012 5:08 AM CDT) Analysis Performed At Patho logist Time Signature AST, Total, S 87 (H) 8 - 48 U/L [facility] Specimen Anatomical Collection Method Collection Time Receive d Time (Source) Location / / Volume Laterality 03/22/2012 5:08 AM 2 5:08 CDT AM CDT Joselyn Fay M.D. LAB BLOOD ADD-ON Performing Organization Address City/State/ZIP Code Phon e Number [facility] LABORATORIES - [address] [place], [place] [address] [facility] Phosphorus Inorganic (03/22/2012 5:08 AM CDT) Analysis Performed At Patho logist Time Signature Phosphorus 3.5 2.5 - 4.5 [facility] (Inorganic), S MG/DL [facility] Specimen Anatomical Collection Method Collection Time Receive d Time (Source) Location / / Volume Laterality 03/22/2012 5:08 AM 2 5:08 CDT AM CDT Joselyn Fay M.D. LAB BLOOD ADD-ON Performing Organization Address City/State/ZIP Code Phon e Number [facility] LAB[facility]ATORIES - [address] [place], [place] [address] [facility] (ABNORMAL) Albumin (03/22/2012 5:08 AM CDT) P athologist Signature Albumin, S 3.1 (L) 3.5 - 5.0 [facility] G/DL LABORATORIES [facility] Specimen Anatomical Collection Method Collection Time Receive d Time (Source) Location / / Volume Laterality 03/22/2012 5:08 AM 2 5:08 CDT AM CDT Joselyn Fay M.D. LAB BLOOD ADD-ON Performing Organization Address City/State/ZIP Code Phon e Number [facility] LABORATORIES - [address] [place], [place] [address] [facility] PT (Prothrombin Time) with INR (03/22/2012 5:08 AM CDT) Patholo gist Method Time Signature Prothrombin 13.4 9.5 - 13.8 [facility] Time, P SEC [facility] INR 1.1 0.8 - 1.2 [facility] Specimen Anatomical Collection Method Collection Time Receive d Time (Source) Location / / Volume Laterality 03/22/2012 5:08 AM 2 5:08 CDT AM CDT Joselyn Fay M.D. LAB BLOOD ADD-ON Performing Organization Address City/State/ZIP Code Phon e Number [facility] LABORATORIES - [address] [place], [place] [address] [facility] Microbiology Reports (03/21/2012 3:05 PM CDT) Specimen Anatomical Collection Method Collection Time Receive d Time (Source) Location / / Volume Laterality 03/21/2012 3:05 PM 2 3:06 CDT PM CDT Narrative [facility] - 03/26/2012 6:30 PM CDT 21-MAR-2012 BLOOD, ? SoftOrd# [id number] ?(Specimen Collected 15:05; Received 21-MAR-2012 15:27) ?[facility] ?BACTERIA/RIMMA CULTURE, BLOOD ? (Reported 26-MAR-2012 18:30) FINAL ?No growth after 5 days of in cubation. Procedure Note 10/01/2017 21-MAR-2012 BLOOD, SoftOrd# [id number] (Specimen Collected 21-MAR-2012 15:05; Received 21-MAR-2012 15:27) [facility] BACTERIA/RIMMA CULTURE, BLOOD (Repor onel 26-MAR-2012 18:30) FINAL No growth after 5 days of incubation. Buddy Barron LAB MICROBIOLOGY - GENERAL O RDERABLES Performing Organization Address City/State/ZIP Code Phon e Number [facility] - [address] [place], [place] [address] [facility] Microbiology Reports (03/21/2012 2:50 PM CDT) Specimen Anatomical Collection Method Collection Time Receive d Time (Source) Location / / Volume Laterality 03/21/2012 2:50 PM 2 2:51 CDT PM CDT Narrative [facility] - [facility] - 03/26/2012 6:30 PM CDT 21-MAR-2012 BLOOD, ? SoftOrd# [id number] ?(Specimen Collected 14:50; Received 21-MAR-2012 15:27) ?[facility] ?BACTERIA/RIMMA CULTURE, BLOOD ? (Reported 26-MAR-2012 18:30) FINAL ?No growth after 5 days of in cubation. Procedure Note 10/01/2017 21-MAR-2012 BLOOD, SoftOrd# [id number] (Specimen Collected 21-MAR-2012 14:50; Received 21-MAR-2012 15:27) [facility] BACTERIA/RIMMA CULTURE, BLOOD (Repor onel 26-MAR-2012 18:30) FINAL No growth after 5 days of incubation. Buddy Barron LAB MICROBIOLOGY - GENERAL O RDERABLES Performing Organization Address City/[facility] Phon e Number [facility] - [address] [place] [phone] [facility] Sodium, 24 Hour, Urine (03/21/2012 6:21 AM CDT) Patholo gist Method Time Signature Sodium, 24 HR, U 145 41 - 227 [facility] MMOL/24 H LABORATORIES [facility] Sodium 55 MMOL/L [facility] Concentration [facility] Collection 24 H [facility] Duration [facility] Urine Volume 2629 ML [facility] Specimen Anatomical Collection Method Collection Time Receive d Time (Source) Location / / Volume Laterality 03/21/2012 6:21 AM 2 6:21 CDT AM CDT May Ballesteros P.A.-C. LAB URINE ORDERABLES Performing Organization Address City/[facility]/ZIP [facility] Phon e Number [facility] LABORATORIES - [address] [place] [address] [facility] Magnesium (03/21/2012 5:20 AM CDT) P athologist Signature Magnesium, S 2.0 1.7 - 2.3 [facility] MG/DL [facility] Specimen Anatomical Collection Method Collection Time Receive d Time (Source) Location / / Volume Laterality 03/21/2012 5:20 AM 2 5:20 CDT AM CDT May Ballesteros P.A.-C. LAB BLOOD ADD-ON Performing Organization Address City/[facility]/ZIP Code Phon e Number [facility] LABORATORIES - [address] [place] [address] [facility] (ABNORMAL) ALT (Alanine Aminotransferase) (03/21/2012 5:20 AM CDT) [facility] Method Time Signature Alanine 59 (H) 7 - 55 [facility] Aminotransferase U/L LABORATORIES - (ALT), S [facility] Specimen Anatomical Collection Method Collection Time Receive d Time (Source) Location / / Volume Laterality 03/21/2012 5:20 AM 2 5:20 CDT AM CDT May Ballesteros P.A.-C. LAB BLOOD ADD-ON Performing Organization Address City/[facility]/ZIP Code Phon e Number [facility] LABORATORIES - [address] [place] [address] [facility] (ABNORMAL) Bilirubin (03/21/2012 5:20 AM CDT) [facility] Method Time Signature Bilirubin, 10.1 (H) 0.1 - 1.0 [facility] Total, S MG/DL LABORATORIES - [facility] Bilirubin, 8.1 (H) 0.0 - 0.3 [facility] Direct, S MG/DL LABORATORIES - [facility] Specimen Anatomical Collection Method Collection Time Receive d Time (Source) Location / / Volume Laterality 03/21/2012 5:20 AM 2 5:20 CDT AM CDT May Ballesteros P.A.-C. LAB BLOOD ADD-ON Performing Organization Address City/[facility]/ZIP Code Phon e Number [facility] LABORATORIES - [address] [place] [address] [facility] (ABNORMAL) Albumin (03/21/2012 5:20 AM CDT) P athologist Signature Albumin, S 3.0 (L) 3.5 - 5.0 [facility] G/DL LABORATORIES - [facility] Specimen Anatomical Collection Method Collection Time Receive d Time (Source) Location / / Volume Laterality 03/21/2012 5:20 AM 2 5:20 CDT AM CDT May Ballesteros P.A.-C. LAB BLOOD ADD-ON Performing Organization Address City/[facility]/ZIP Code Phon e Number [facility] LABORATORIES - [address] [place], [place] [address] [facility] (ABNORMAL) Alkaline Phosphatase (03/21/2012 5:20 AM CDT) [facility] Method Time Signature Alkaline 213 (H) 45 - 115 [facility] Phosphatase, S U/L LABORATORIES [facility] Specimen Anatomical Collection Method Collection Time Receive d Time (Source) Location / / Volume Laterality 03/21/2012 5:20 AM 2 5:20 CDT AM CDT May Ballesteros P.A.-C. LAB BLOOD ADD-ON Performing Organization Address City/[facility]/ZIP Code Phon e Number [facility] LABORATORIES - [address] [place], [place] [address] [facility] PT (Prothrombin Time) with INR (03/21/2012 5:20 AM CDT) [facility] Method [place] Signature Prothrombin 12.5 9.5 - 13.8 [facility] Time, P SEC LABORATORIES - [facility] INR 1.0 0.8 - 1.2 [facility] - [facility] Specimen Anatomical Collection Method Collection Time Receive d Time (Source) Location / / Volume Laterality 03/21/2012 5:20 AM 2 5:20 CDT AM CDT May Ballesteros P.A.-C. LAB BLOOD ADD-ON Performing Organization Address City/State/ZIP Code Phon e Number [facility] LABORATORIES - [address] [place], [place] [address] [facility] (ABNORMAL) Electrolyte (Chem 4) Panel (03/21/2012 5:20 AM CDT) [facility] Signature Chloride, S 102 100 - 108 [facility] MMOL/L LABORATORIES [facility] HX Bicarbonate, 22 22 - 29 [facility] P/S MMOL/L LABORATORIES [facility] eGFR-Black/Afri >60 >60 [facility] can [place] ML/MIN/BS LABORATORIES - A [facility] BUN (Blood Urea 27 (H) 8 - 24 [facility] Nitrogen), S MG/DL [facility] Sodium, S 134 (L) 135 - 145 [facility] MMOL/L LABORATORIES - [facility] Potassium, S 3.9 3.6 - 5.2 [facility] MMOL/L [facility] Creatinine 1.1 0.8 - 1.3 [facility] MG/DL LABORATORIES - [facility] eGFR >60 >60 [facility] Non-Black/Afric ML/MIN/BS LABORATORIES - an [place] A [facility] Anion Gap 10 7 - 15 [facility] - [facility] Glucose, S 174 (H) 70 - 140 [facility] MG/DL LABORATORIES - [facility] Specimen Anatomical Collection Method Collection Time Receive d Time (Source) Location / / Volume Laterality 03/21/2012 5:20 AM 2 5:20 CDT AM CDT May Ballesteros P.A.-C. LAB BLOOD ADD-ON Performing Organization Address City/[facility]/ZIP Code Phon e Number [facility] LABORATORIES - [address] [place] [address] [facility] (ABNORMAL) AST (Aspartate Aminotransferase) (03/21/2012 5:20 AM CDT) Analysis Performed At Patho logist Time Signature AST, Total, S 60 (H) 8 - 48 U/L [facility] LABORATORIES - [facility] Specimen Anatomical Collection Method Collection Time Receive d Time (Source) Location / / Volume Laterality 03/21/2012 5:20 AM 2 5:20 CDT AM CDT May Ballesteros P.A.-C. LAB BLOOD ADD-ON Performing Organization Address City/State/ZIP Code Phon e Number [facility] LABORATORIES - [address] [address] [facility] (ABNORMAL) CBC with Differential - No Alerts (03/21/2012 5:20 AM CDT) Patholo gist Method Time Signature Erythrocytes 3.45 (L) 4.32 - [facility] 5.72 LABORATORIES - X10(12)/L [facility] MCV 84.1 81.2 - [facility] 95.1 FL LABORATORIES - [facility] RBC Distrib 15.0 11.8 - [facility] Width 15.6 % LABORATORIES - [facility] Platelet Count 231 150 - 450 [facility] X10(9)/L LABORATORIES - [facility] Lymphocytes 2.59 0.90 - [facility] 2.90 LABORATORIES - X10(9)/L [facility] Monocytes 0.77 0.30 - [facility] 0.90 LABORATORIES - X10(9)/L [facility] Eosinophils 0.19 0.05 - [facility] 0.50 LABORATORIES - X10(9)/L [facility] Basophils 0.02 0.00 - [facility] 0.30 LABORATORIES - X10(9)/L [facility] Hemoglobin 10.0 (L) 13.5 - [facility] 17.5 G/DL LABORATORIES - [facility] Hematocrit 29.0 (L) 38.8 - [facility] 50.0 % LABORATORIES - [facility] Leukocytes 7.6 3.5 - [facility] 10.5 LABORATORIES - X10(9)/L [facility] Neutrophils 4.04 1.70 - [facility] 7.00 LABORATORIES - X10(9)/L [facility] Specimen Anatomical Collection Method Collection Time Receive d Time (Source) Location / / Volume Laterality 03/21/2012 5:20 AM 2 5:20 CDT AM CDT May Ballesteros P.A.-C. LAB BLOOD NON ADD-ON Performing Organization Address City/[facility] Code Phon e Number [facility] LABORATORIES - [address] [address] [facility] Tacrolimus Level (03/21/2012 5:20 AM CDT) Analysis Performed At Path logist Time Signature Tacrolimus, B 10.6 5.0-15.0 [facility] (Trough) LABORATORIES - NG/ML [facility] Tacrolimus . [facility] Blood Date of LABORATORIES - Last Dose [facility] Comment: Not Specified Tacrolimus Time of Last Dose . [facility] - [facility] Comment: Not Specified Tacrolimus Blood Dose, mg . MG [facility] LABORATORIES - [facility] Comment: Not Specified Specimen Anatomical Collection Method Collection Time Receive d Time (Source) Location / / Volume Laterality 03/21/2012 5:20 AM 2 5:20 CDT AM CDT May Ballesteros P.A.-C. LAB BLOOD NON ADD-ON Performing Organization Address City/[facility] Phon e Number [facility] LABORATORIES - [address] [address] [facility] DX Hand 2 Views And Wrist 2 Views (03/20/2012 4:40 PM CDT) Anatomical Region Laterality Modality Radiographic Imaging Specimen (Source) Anatomical Collection Method Collection Time Re ceived Time Location / / Volume Laterality 03/20/2012 4:40 PM CDT Narrative 03/20/2012 4:54 PM CDT 20-Mar-2012 16:40:00 ??Exam: R Hand 2vw & Wrist 2vw Indications: pain, swelling ORIGINAL REPORT - 20-Mar-2012 16:54:00 Right Hand 2vw & Wrist 2vw: Minimal scattered degenerative change in the right hand and wrist at several IP and radioscaphoid articulations. Electronically signed by: ?? Dorene Menendez MD ??[phone] 20-Mar-2012 16:54 Procedure Note Royal Menendez M.D. - 09/20/2017Formatt ing of this note might be different from the original. 20-Mar-2012 16:40:00 Exam: R Hand 2vw & Wrist 2vw Indications: pain, swelling ORIGINAL REPORT - 20-Mar-2012 16:54:00 Right Hand 2vw & Wrist 2vw: Minimal scattered degenerative change in the right hand and wrist at several IP and radioscaphoid articulations. Electronically signed by: Dorene Menendez MD [phone] 20-Mar-2012 16:54 Filiberto Antony M.D. [facility] Microbiology Reports (03/20/2012 12:33 PM CDT) Specimen Anatomical Collection Method Collection Time Receive d Time (Source) Location / / Volume Laterality 03/20/2012 12:33 03/20/2012 PM CDT 12:34 PM CDT Narrative [facility] - 03/25/2012 6:30 PM CDT 20-MAR-2012 BLOOD, ARM RIGHT ? SoftOrd# [id number] ?(Specimen Collected 12:33; Received 20-MAR-2012 13:35) ?[facility] ?BACTERIA/RIMMA CULTURE, BLOOD ? (Reported 25-MAR-2012 18:30) FINAL ?No growth after 5 days of in cubation. Procedure Note 10/01/2017 20-MAR-2012 BLOOD, ARM RIGHT SoftOrd# [id number] (Specimen Collected 20-MAR-2012 12:33; Received 20-MAR-2012 13:35) [facility] BACTERIA/RIMMA CULTURE, BLOOD (Repor onel 25-MAR-2012 18:30) FINAL No growth after 5 days of incubation. May Ballesteros P.A.-C. LAB MICROBIOLOGY - GENERAL O RDERABLES Performing Organization Address City/State/ZIP Code Phon e Number [facility] - [address] [place], [place] [address] [facility] Microbiology Reports (03/20/2012 12:32 PM CDT) Specimen Anatomical Collection Method Collection Time Receive d Time (Source) Location / / Volume Laterality 03/20/2012 12:32 03/20/2012 PM CDT 12:32 PM CDT Narrative [facility] - 03/27/2012 2:55 PM CDT 20-MAR-2012 BLOOD, ARM LEFT ?SoftOrd# [id number] ?(Specimen Collected 12:32; Received 20-MAR-2012 13:34) ?[facility] Additional Report ?BACTERIA/RIMMA CULTURE, BLOOD ? (Reported 27-MAR-2012 14:55) FINAL ?ENTEROCOCCUS FAECALIS ??Grow th after 16 Hours ?- ? Previous comment was modified at 19:08 on 03/24/2012: 2 of 3 Bottles, Susceptibilities performed ? on another specimen 6 [id number] ? Previous comment was modified at 12:47 on 03/22/2012: 1 of 3 Bottles, ?Susceptibilities requested b y phone. ?S=Susceptible; I=Intermed iate; R=Resistant; N=Not susceptible; D=Dose-dependent susceptible; ?Results in mcg/mL ?ENTEROCOCCUS FAECALIS ?Penicillin ?1 S ?Gent Synergy ?<=500 S ?Vancomycin ?<=2 S ?Daptomycin ?1 S Procedure Note 10/01/2017 20-MAR-2012 BLOOD, ARM LEFT SoftOrd# [id number] (Specimen Collected 20-MAR-2012 12:32; Received 20-MAR-2012 13:34) [facility] Additional Report BACTERIA/RIMMA CULTURE, BLOOD (Repor onel 27-MAR-2012 14:55) FINAL ENTEROCOCCUS FAECALIS Growth after 16 H ours - Previous comment was modified at 19:08 on 03/24/2012: 2 of 3 Bottles, Susceptibilities performed on another specimen [id number] Previous comment was modified at 12:47 on 03/22/2012: 1 of 3 Bottles, Susceptibilities requested by phone. S=Susceptible; I=Intermediate; R=Resist ant; N=Not susceptible; D=Dose-dependent susceptible; Results in mcg/mL ENTEROCOCCUS FAECALIS Penicillin 1 S Gent Synergy <=500 S Van comycin <=2 S Daptomycin 1 S May Ballesteros P.A.-C. 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 Compared to study dated 09/18/2011. Liver transplant:.... ??Heterogeneous te xture. ?? Gallbladder:...........Absent. Bile ducts:............Not dilated. CBD not seen due to overlying intestinal gas. Doppler:...............Portal, and hepat ic veins; patent. Hepatic artery not visualized, previously thrombosed. IVC:......................Normal. Pancreas:..............Not well seen due to overlying intestinal gas. Spleen:................ Splenomegaly. Le ngth 15.5 cm. Right kidney:..........Normal survey. Le ngth 12.2 cm. Left kidney:...........Normal survey. Le ngth 12 cm. Aorta:.................Normal caliber. Electronically signed by: ?? Evelio Roman MD [id number] 20-Mar-2012 09:46 Procedure Note Evelio Roman M.D. - 09/20/2017Fo rmatting of this note might be different from the original. 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 Liver transplant:.... Heterogeneous text ure. Gallbladder:...........Absent. Bile ducts:............Not dilated. CBD not seen due to overlying intestinal gas. Doppler:...............Portal, and hepat ic veins; patent. Hepatic artery not visualized, previously thrombosed. IVC:......................Normal. Pancreas:..............Not well seen due to overlying intestinal gas. Spleen:................ Splenomegaly. Le ngth 15.5 cm. Right kidney:..........Normal survey. Le ngth 12.2 cm. Left kidney:...........Normal survey. Le ngth 12 cm. Aorta:.................Normal caliber. Electronically signed by: Evelio Roman MD [id number] 20-Mar-2012 09:46 Curt Nicholas M.D. IMG US PROCEDURES ABORh, RBC (03/20/2012 5:36 AM CDT) P athologist Signature HXABO/RH BLOOD O Pos [facility] TYPE LABORATORIES [facility] Specimen (Source) Anatomical Collection Method Collection Time Re ceived Time Location / / Volume Laterality 03/20/2012 5:36 AM CDT Historical Provider LAB BLOOD BANK TEST ORDERABL ES Performing Organization Address City/State/ZIP Code Phon e Number [facility] [place] - [address] [place], [place] [address] [facility] Antibody Screen, RBC (03/20/2012 5:36 AM CDT) Patholo gist Method Time Signature Antibody Negative [facility] Screen LABORATORIES [facility] Specimen (Source) Anatomical Collection Method Collection Time Re ceived Time Location / / Volume Laterality 03/20/2012 5:36 AM CDT Historical Provider LAB BLOOD BANK TEST ORDERABL ES Performing Organization Address City/State/ZIP Code Phon e Number [facility] LABORATORIES - [address] [place], [place] [address] [facility] Ammonia, Arterial (03/20/2012 5:23 AM CDT) [facility] gist Method Time Signature Ammonia, <10 SeeComment MCG [facility] Arterial N/DL LABORATORIES - [facility] Comment: Reference Range: ? The reference interval for ? venous ammonia is <50 mcg ? N/dL. Reference intervals for ? arterial ammonia have not ? been established. Results ? should be interpreted in ? conjunction with clinical ? findings. ? Time of Assay 604 [facility] Specimen Anatomical Collection Method Collection Time Receive d Time (Source) Location / / Volume Laterality 03/20/2012 5:23 AM 2 5:23 CDT AM CDT May Ballesteros P.A.-C. LAB BLOOD NON ADD-ON Performing Organization Address City/State/ZIP Code Phon e Number [facility] - [address] [place], [place] [address] [facility] (ABNORMAL) Blood Gas with Coox, Arterial (03/20/2012 5:23 AM CDT) [facility] gist Method Time Signature Arterial R-Radial [facility] Sample Site [facility] FIO2 0.21 .21=AIR [facility] Spont. 20 [facility] breaths/min [facility] pO2 87 80 - 100 [facility] MM HG [facility] Base Excess -4 (L) -2 - 2 [facility] MMOL/L [facility] HCO3 20 (L) 22 - 26 [facility] MMOL/L [facility] Hb 9.4 (L) 13.5 - [facility] 17.5 G/DL [facility] O2Hb 95.0 94.0 - [facility] 98.0 % [facility] COHb <1.0 <3.0 % [facility] LABORATORIES - [facility] MetHb <1.0 <1.6 % [facility] LABORATORIES - [facility] CtO2 12.6 (L) 21.0 - [facility] 23.0 VOL LABORATORIES - % [facility] pCO2 34 (L) 35 - 45 [facility] MM HG LABORATORIES - [facility] pH 7.40 7.35 - [facility] 7.45 PH LABORATORIES - [facility] Specimen Anatomical Collection Method Collection Time Receive d Time (Source) Location / / Volume Laterality 03/20/2012 5:23 AM 2 5:23 CDT AM CDT May Ballesteros P.A.-C. LAB BLOOD NON ADD-ON Performing Organization Address City/State/ZIP Code Phon e Number [facility] LABORATORIES - [address] [place], [place] [address] [facility] (ABNORMAL) Electrolyte (Chem 4) Panel (03/20/2012 5:20 AM CDT) [facility] gist Method Time Signature Sodium, S 129 (L) 135 - 145 [facility] MMOL/L LABORATORIES - [facility] Potassium, S 4.1 3.6 - 5.2 [facility] MMOL/L LABORATORIES - [facility] Creatinine 1.2 0.8 - 1.3 [facility] MG/DL LABORATORIES [facility] eGFR >60 >60 [facility] Non-Black/Afric ML/MIN/BS LABORATORIES - [facility] Anion Gap 8 7 - 15 [facility] Glucose, S 183 (H) 70 - 140 [facility] MG/DL [facility] Chloride, S 101 100 - 108 [facility] MMOL/L [facility] HX Bicarbonate, 20 (L) 22 - 29 [facility] P/S MMOL/L LABORATORIES [facility] eGFR-Black/Afri >60 >60 [facility] can [place] ML/MIN/BS LABORATORIES - [facility] BUN (Blood Urea 39 (H) 8 - 24 [facility] Nitrogen), S MG/DL LABORATORIES - [facility] Specimen Anatomical Collection Method Collection Time Receive d Time (Source) Location / / Volume Laterality 03/20/2012 5:20 AM 2 5:20 CDT AM CDT May Ballesteros P.A.-C. LAB BLOOD ADD-ON Performing Organization Address City/State/[facility] Code Phon e Number [facility] LABORATORIES - [address] [place], [place] [address] [facility] (ABNORMAL) Bilirubin, Direct (03/20/2012 5:20 AM CDT) [facility] Method Time Signature Bilirubin, 9.6 (H) 0.0 - 0.3 [facility] Direct, S MG/DL LABORATORIES - [facility] Specimen Anatomical Collection Method Collection Time Receive d Time (Source) Location / / Volume Laterality 03/20/2012 5:20 AM 2 5:20 CDT AM CDT May Ballesteros P.A.-C. LAB BLOOD ADD-ON Performing Organization Address City/[facility] Code Phon e Number [facility] LABORATORIES - [address] [place] [phone] [facility] (ABNORMAL) Electrophoresis, Protein (03/20/2012 5:20 AM CDT) [facility] Method Time Signature Total Protein, 5.7 (L) 6.3 - 7.9 [facility] S G/DL [facility] Albumin 2.2 (L) 3.4 - 4.7 [facility] G/DL [facility] Beta-Globulin 0.8 0.7 - 1.2 [facility] G/DL [facility] Gamma-Globulin 1.4 0.6 - 1.6 [facility] G/DL [facility] A/G Ratio 0.64 [facility] Impression . [facility] - [facility] Comment: No apparent monoclonal protein on serum electrophoresis. Alpha-1 Globulin 0.5 (H) 0.1 - 0.3 G/DL [facility] LABORATORIES - [facility] Alpha-2 Globulin 0.8 0.6 - 1.0 G/DL [facility] - [facility] Specimen Anatomical Collection Method Collection Time Receive d Time (Source) Location / / Volume Laterality 03/20/2012 5:20 AM 2 5:20 CDT AM CDT May Ballesteros P.A.-C. LAB BLOOD ADD-ON Performing Organization Address City/[facility]/ZIP Code Phon e Number [facility] LABORATORIES - [address] [place] [phone] [facility] (ABNORMAL) Ceruloplasmin (03/20/2012 5:20 AM CDT) Patholo gist Method Time Signature Ceruloplasmin, 35.7 (H) 15.0 - [facility] S 30.0 LABORATORIES - MG/DL [facility] Specimen Anatomical Collection Method Collection Time Receive d Time (Source) Location / / Volume Laterality 03/20/2012 5:20 AM 201 2 5:20 CDT AM CDT May Ballesteros P.A.-C. LAB BLOOD ADD-ON Performing Organization Address City/State/ZIP Code Phon e Number [facility] LABORATORIES - [address] [place], [place] [address] [facility] PSA (Prostate-Specific Antigen) Screen (03/20/2012 5:20 AM CDT) P athologist Signature Prostate-Speci 0.20 <=3.5 [facility] fic Ag NG/ML LABORATORIES - [facility] Comment: The testing method is an electrochemilum inescence ? assay manufactured by [employer] and ? performed on the Lumaqco or Didier system . ? Values obtained with different assay met hods or kits ? may be different and cannot be used inte rchangeably. ? Test results cannot be interpreted as ab solute evidence ? for the presence or absence of malignant disease. ? Specimen Anatomical Collection Method Collection Time Receive d Time (Source) Location / / Volume Laterality 03/20/2012 5:20 AM 2 5:20 CDT AM CDT May Ballesteros P.A.-C. LAB BLOOD ADD-ON Performing Organization Address City/State/ZIP Code Phon e Number [facility] LABORATORIES - [address] [place], [place] [address] [facility] Hepatitis B Core Total Ab (03/20/2012 5:20 AM CDT) Patholo gist Method Time Signature HBc Total Ab, Negative Negative [facility] S LABORATORIES [facility] Specimen Anatomical Collection Method Collection Time Receive d Time (Source) Location / / Volume Laterality 03/20/2012 5:20 AM 2 5:20 CDT AM CDT May Ballesteros P.A.-C. LAB MICROBIOLOGY - BLOOD ORD ERABLES Performing Organization Address City/[facility]/ZIP Code Phon e Number [facility] LABORATORIES - [address] [place] [address] [facility] Thyroid Function Ray (03/20/2012 5:20 AM CDT) P athologist Signature TSH, Sensitive 1.4 0.3 - 5.0 [facility] MIU/L LABORATORIES - [facility] Specimen Anatomical Collection Method Collection Time Receive d Time (Source) Location / / Volume Laterality 03/20/2012 5:20 AM 2 5:20 CDT AM CDT May Ballesteros P.A.-C. LAB BLOOD ADD-ON Performing Organization Address City/[facility] Code Phon e Number [facility] LABORATORIES - [address] [place] [phone] [facility] Hepatitis B Surface, Ab (03/20/2012 5:20 AM CDT) [facility] Method Time Signature HBs Antibody,S Positive Unvaccina [facility] onel: LABORATORIES - Negative; [facility] d: Positive; Comment: Patient is considered to be imm une to infection with HBV. HBs Antibody, 20.8 Unvaccinated: <5.0; [facility] LABORATORIES Quantitative, S Vaccinated: >=12.0; - RO [facility] MIU/ML Specimen Anatomical Collection Method Collection Time Receive d Time (Source) Location / / Volume Laterality 03/20/2012 5:20 AM 2 5:20 CDT AM CDT May Ballesteros P.A.-C. LAB MICROBIOLOGY - BLOOD ORD ERABLES Performing Organization Address City/State/ZIP Code Phon e Number [facility] LABORATORIES - [address] [place] [address] [facility] (ABNORMAL) Alkaline Phosphatase (03/20/2012 5:20 AM CDT) [facility] Method Time Signature Alkaline 241 (H) 45 - 115 [facility] Phosphatase, S U/L LABORATORIES - [facility] Specimen Anatomical Collection Method Collection Time Receive d Time (Source) Location / / Volume Laterality 03/20/2012 5:20 AM 2 5:20 CDT AM CDT May Ballesteros P.A.-C. LAB BLOOD ADD-ON Performing Organization Address City/State/ZIP Code Phon e Number [facility] LABORATORIES - [address] [address] [facility] 1,25-Dihydroxyvitamin D (03/20/2012 5:20 AM CDT) [facility] Method Time Signature 1, 25 30 18 - 64 [facility] DIHYDROXYVITAMIN D, PG/ML LABORATORI ES - S [facility] Specimen Anatomical Collection Method Collection Time Receive d Time (Source) Location / / Volume Laterality 03/20/2012 5:20 AM 2 5:20 CDT AM CDT May Ballesteros P.A.-C. LAB BLOOD ADD-ON Performing Organization Address City/[facility]/ZIP Code Phon e Number [facility] LABORATORIES - [address] [address] [facility] PT (Prothrombin Time) with INR (03/20/2012 5:20 AM CDT) [facility] Method Time Signature Prothrombin 13.4 9.5 - 13.8 [facility] Time, P [facility] - [facility] INR 1.1 0.8 - 1.2 [facility] Specimen Anatomical Collection Method Collection Time Receive d Time (Source) Location / / Volume Laterality 03/20/2012 5:20 AM 2 5:20 CDT AM CDT May Ballesteros P.A.-C. LAB BLOOD ADD-ON Performing Organization Address City/[facility]/ZIP Code Phon e Number [facility] LABORATORIES - [address] [address] [facility] (ABNORMAL) Albumin (03/20/2012 5:20 AM CDT) P athologist Signature Albumin, S 2.6 (L) 3.5 - 5.0 [facility] G/DL LABORATORIES [facility] Specimen Anatomical Collection Method Collection Time Receive d Time (Source) Location / / Volume Laterality 03/20/2012 5:20 AM 2 5:20 CDT AM CDT May Ballesteros P.A.-C. LAB BLOOD ADD-ON Performing Organization Address City/[facility]/ZIP Code Phon e Number [facility] LABORATORIES - [address] [address] [facility] (ABNORMAL) Iron and Total Iron-Binding Capacity (03/20/2012 5:20 AM CDT) [facility] Method Time Signature Iron 46 (L) 50 - 150 [facility] MCG/DL LABORATORIES - [facility] Total Iron 156 (L) 250 - 400 [facility] Binding MCG/DL LABORATORIES - Capacity [facility] Percent 29 14 - 50 % [facility] Saturation LABORATORIES - [facility] Specimen Anatomical Collection Method Collection Time Receive d Time (Source) Location / / Volume Laterality 03/20/2012 5:20 AM 2 5:20 CDT AM CDT May Ballesteros P.A.-C. LAB BLOOD ADD-ON Performing Organization Address City/State/ZIP Code Phon e Number [facility] LABORATORIES - [address] [place] [address] [facility] (ABNORMAL) CBC with Differential (03/20/2012 5:20 AM CDT) [facility] Method Time Signature Erythrocytes 3.12 (L) 4.32 - [facility] 5.72 LABORATORIES - X10(12)/L [facility] MCV 84.0 81.2 - [facility] 95.1 FL LABORATORIES - [facility] Leukocytes 7.5 3.5 - [facility] 10.5 LABORATORIES - X10(9)/L [facility] Neutrophils 5.14 1.70 - [facility] 7.00 LABORATORIES - X10(9)/L [facility] Eosinophils 0.07 0.05 - [facility] 0.50 LABORATORIES - X10(9)/L [facility] Basophils 0.01 0.00 - [facility] 0.30 LABORATORIES - X10(9)/L [facility] Hemoglobin 9.4 (L) 13.5 - [facility] 17.5 G/DL LABORATORIES - [facility] Hematocrit 26.2 (L) 38.8 - [facility] 50.0 % LABORATORIES - [facility] RBC Distrib 14.9 11.8 - [facility] Width 15.6 % LABORATORIES - [facility] Platelet Count 170 150 - 450 [facility] X10(9)/L LABORATORIES - [facility] Lymphocytes 1.33 0.90 - [facility] 2.90 LABORATORIES - X10(9)/L [facility] Monocytes 0.92 (H) 0.30 - [facility] 0.90 LABORATORIES - X10(9)/L [facility] Specimen Anatomical Collection Method Collection Time Receive d Time (Source) Location / / Volume Laterality 03/20/2012 5:20 AM 2 5:20 CDT AM CDT May Ballesteros P.A.-C. LAB BLOOD ADD-ON Performing Organization Address City/State/ZIP Code Phon e Number [facility] LABORATORIES - [address] [place] [phone] [facility] OZZIE (Antinuclear Antibodies) (03/20/2012 5:20 AM CDT) [facility] gist Method Time Signature Antinuclear Ab, 0.5 <=1.0 [facility] S (Negative) LABORATORIES - U [facility] Specimen Anatomical Collection Method Collection Time Receive d Time (Source) Location / / Volume Laterality 03/20/2012 5:20 AM 2 5:20 CDT AM CDT May Ballesteros P.A.-C. LAB BLOOD ADD-ON Performing Organization Address City/[facility]/ZIP Code Phon e Number [facility] LABORATORIES - [address] [address] [facility] (ABNORMAL) Calcium, Total (03/20/2012 5:20 AM CDT) [facility] Method Time Signature Calcium, 8.3 (L) 8.9 - 10.1 [facility] Total, S MG/DL LABORATORIES - [facility] Specimen Anatomical Collection Method Collection Time Receive d Time (Source) Location / / Volume Laterality 03/20/2012 5:20 AM 2 5:20 CDT AM CDT May Ballesteros P.A.-C. LAB BLOOD ADD-ON Performing Organization Address City/State/ZIP Code Phon e Number [facility] LABORATORIES - [address] [address] [facility] Mitochondrial Antibodies (M2) (03/20/2012 5:20 AM CDT) [facility] gist Method Time Signature Mitochondrial Ab, <0.1 <0.1 [facility] M2, S (Negative LABORATORIES - ) U [facility] Specimen Anatomical Collection Method Collection Time Receive d Time (Source) Location / / Volume Laterality 03/20/2012 5:20 AM 2 5:20 CDT AM CDT May Ballesteros P.A.-C. LAB BLOOD ADD-ON Performing Organization Address City/State/ZIP Code Phon e Number [facility] LABORATORIES - [address] [address] [facility] (ABNORMAL) Ferritin (03/20/2012 5:20 AM CDT) P athologist Signature Ferritin, S 638 (H) 24 - 336 [facility] MCG/L LABORATORIES [facility] Specimen Anatomical Collection Method Collection Time Receive d Time (Source) Location / / Volume Laterality 03/20/2012 5:20 AM 2 5:20 CDT AM CDT May Ballesteros P.A.-C. LAB BLOOD ADD-ON Performing Organization Address City/[facility]/ZIP Code Phon e Number [facility] LABORATORIES - [address] [phone] [facility] Phosphorus Inorganic (03/20/2012 5:20 AM CDT) Analysis Performed At Patho logist Time Signature Phosphorus 3.6 2.5 - 4.5 [facility] (Inorganic), S MG/DL [facility] Specimen Anatomical Collection Method Collection Time Receive d Time (Source) Location / / Volume Laterality 03/20/2012 5:20 AM 2 5:20 CDT AM CDT May Ballesteros P.A.-C. LAB BLOOD ADD-ON Performing Organization Address City/State/ZIP Code Phon e Number [facility] LABORATORIES - [address] [phone] [facility] (ABNORMAL) Vitamin A and Vitamin E (03/20/2012 5:20 AM CDT) Patholo gist Method Time Signature A-Tocopherol, 2.7 (L) 5.5 - 17.0 [facility] Vitamin E MG/L [facility] Comment: In this sample, the alpha-tocopherol (vi tamin E) level indicates a severe ? deficiency. ? Vitamin A 18.6 (L) 32.5 - 78.0 MCG/DL [facility] LINIC [facility] Specimen Anatomical Collection Method Collection Time Receive d Time (Source) Location / / Volume Laterality 03/20/2012 5:20 AM 2 5:20 CDT AM CDT May Ballesteros P.A.-C. LAB BLOOD NON ADD-ON Performing Organization Address City/[facility]/ZIP Code Phon e Number [facility] LABORATORIES - [address] [phone] [facility] Smooth Muscle Antibodies (03/20/2012 5:20 AM CDT) [facility] gist Method Time Signature Smooth Muscle Negative Negative [facility] Antibody, S LABORATORIES [facility] Specimen Anatomical Collection Method Collection Time Receive d Time (Source) Location / / Volume Laterality 03/20/2012 5:20 AM 2 5:20 CDT AM CDT May Ballesteros P.A.-C. LAB BLOOD ADD-ON Performing Organization Address City/[facility]/ZIP Code Phon e Number [facility] LABORATORIES - [address] [phone] [facility] ALT (Alanine Aminotransferase) (03/20/2012 5:20 AM CDT) [facility] Method Time Signature Alanine 49 7 - 55 [facility] Aminotransferase U/L LABORATORIES - (ALT), S [facility] Specimen Anatomical Collection Method Collection Time Receive d Time (Source) Location / / Volume Laterality 03/20/2012 5:20 AM 2 5:20 CDT AM CDT May Ballesteros P.A.-C. LAB BLOOD ADD-ON Performing Organization Address City/[facility]/ZIP Code Phon e Number [facility] LABORATORIES - [address] [place] [address] [facility] AFP (Alpha-Fetoprotein), Tumor Marker (03/20/2012 5:20 AM CDT) P athologist Signature Alpha-Fetoprot 0.7 <6.0 NG/ML [facility] deniz, Tumor LABORATORIES - [place], S [facility] Comment: The testing method is an immunoenzymatic assay ? manufactured by [employer]. and performed ? on the [employer] DxI 800. ? Values obtained with different assay met hods or ? kits may be different and cannot be used ? interchangeably. ? Test results cannot be interpreted as ab solute ? evidence for the presence or absence of ? malignant disease. ? Alpha-Fetoprotein values are not interpr etable in ? females for the investigation o f ? malignant disease. ? Specimen Anatomical Collection Method Collection Time Receive d Time (Source) Location / / Volume Laterality 03/20/2012 5:20 AM 2 5:20 CDT AM CDT May Ballesteros P.A.-C. LAB BLOOD ADD-ON Performing Organization Address [facility] Phon e Number [facility]IES - [address] [place] [address] [facility] Hepatitis B Surface Antigen (03/20/2012 5:20 AM CDT) [facility] Method Time Signature HBs Antigen, Negative Negative [facility] S [facility] Specimen Anatomical Collection Method Collection Time Receive d Time (Source) Location / / Volume Laterality 03/20/2012 5:20 AM 2 5:20 CDT AM CDT May Ballesteros P.A.-C. LAB MICROBIOLOGY - BLOOD ORD ERABLES Performing Organization Address [facility] Phon e Number [facility] - [address] [place] [address] [facility] (ABNORMAL) Lipid Panel (03/20/2012 5:20 AM CDT) [facility] Method Time Signature Cholesterol, <5 (L) SeeComment [facility] HDL, S MG/DL [facility] Comment: The decreased HDL cholesterol (<5 mg/dL) was confirmed by ? electrophoresis. LpX was detected in thi s sample and is ? included as a portion of LDL cholesterol , suggesting ? the possibility of cholestasis. ??This m ay also explain ? the markedly reduced HDL cholesterol. ? Reference Range: ? NCEP guidelines ? (ages 18y and up) ? Low: <40 ? Normal: 40-59 ? High : > or =60 ? Calculated LDL . MG/DL [facility] LAB [facility] Comment: Unable to quantitate ? LpX was detected in this sample and is i ncluded as a ? portion of LDL cholesterol, suggesting t he possibility of ? cholestasis. ??LDL cholesterol cannot be accurately ? quantitated in the presence of LpX. Ques tions regarding ? this report may be directed to the [employer] product operations associate alliances consultant ? by calling [phone]. ? Cholesterol, Non-HDL, Calculated . MG/DL [facility] Comment: Unable to quantitate Cholesterol, Total 148 SeeComment MG/DL [facility] Comment: Reference Range: ? NCEP guidelines ? (ages 18y and up) ? Desirable: <200 ? Borderline high: 200-239 ? High: > or =240 ? Triglycerides 190 SeeComment MG/DL [facility] Comment: Reference Range: ? NCEP guidelines ? (ages 18y and up) ? Normal: <150 ? Borderline high: 150-199 ? High: 200-499 ? Very high: > or =500 ? Specimen Anatomical Collection Method Collection Time Receive d Time (Source) Location / / Volume Laterality 03/20/2012 5:20 AM 2 5:20 CDT AM CDT May Ballesteros P.A.-C. LAB BLOOD ADD-ON Performing Organization Address City/State/ZIP Code Phon e Number [facility] - [address] [place], [place] [address] [facility] (ABNORMAL) Bilirubin, Total (03/20/2012 5:20 AM CDT) [facility] Method Time Signature Bilirubin, 12.2 (H) 0.1 - 1.0 [facility] Total, S MG/DL [facility] Specimen Anatomical Collection Method Collection Time Receive d Time (Source) Location / / Volume Laterality 03/20/2012 5:20 AM 2 5:20 CDT AM CDT May Ballesteros P.A.-C. LAB BLOOD ADD-ON Performing Organization Address City/State/ZIP Code Phon e Number [facility] - [address] [place], [place] [address] [facility] Vancomycin, Trough (03/20/2012 5:20 AM CDT) [facility] Method Time Signature Vancomycin, 16.2 SeeComment [facility] Trough, S MCG/ML [facility] Comment: Reference Range: ? 10.0 - 20.0 (Therapeutic concentration), 15.0 - 20.0 ? (Complicated infections) ? Specimen Anatomical Collection Method Collection Time Receive d Time (Source) Location / / Volume Laterality 03/20/2012 5:20 AM 2 5:20 CDT AM CDT May Ballesteros P.A.-C. LAB BLOOD NON ADD-ON Performing Organization Address City/[facility]/ZIP [facility] Phon e Number [facility] - [address] [place] [address] [facility] AST (Aspartate Aminotransferase) (03/20/2012 5:20 AM CDT) P athologist Signature AST, Total, S 46 8 - 48 U/L [facility] Specimen Anatomical Collection Method Collection Time Receive d Time (Source) Location / / Volume Laterality 03/20/2012 5:20 AM 2 5:20 CDT AM CDT May Ballesteros P.A.-C. LAB BLOOD ADD-ON Performing Organization Address City/[facility] Code Phon e Number [facility] - [address] [place] [address] [facility] 25-Hydroxyvitamin D2 and D3 (03/20/2012 5:20 AM CDT) Patholo gist Method Time Signature 25-Hydroxy D2 <4.0 NG/ML [facility] 25-Hydroxy D3 38 NG/ML [facility] 25-Hydroxy D 38 SeeComment [facility] Total NG/ML [facility] Comment: Reference Range: ? 25-HYDROXY D TOTAL (D2+D3) ? Optimum levels in the normal population are 25-80 ? Specimen Anatomical Collection Method Collection Time Receive d Time (Source) Location / / Volume Laterality 03/20/2012 5:20 AM 2 5:20 CDT AM CDT May Ballesteros P.A.-C. LAB BLOOD ADD-ON Performing Organization Address City/[facility] Phon e Number [facility] - [address] [place] [address] [facility] (ABNORMAL) GGT (Gamma-Glutamyltransferase) (03/20/2012 5:20 AM CDT) Component Value Ref Test Analysis Performed At [facility] Method Time Signature Gamma 167 (H) 12 - 48 [facility] Glutamyltransferase U/L LABORATORI ES - (GGT), S [facility] Specimen Anatomical Collection Method Collection Time Receive d Time (Source) Location / / Volume Laterality 03/20/2012 5:20 AM 2 5:20 CDT AM CDT May Ballesteros P.A.-C. LAB BLOOD ADD-ON Performing Organization Address City/[facility] Code Phon e Number [facility] - [address] [place] [address] [facility] PTH (Parathyroid Hormone) (03/20/2012 5:20 AM CDT) [facility] Method Time Signature Parathyroid 17 15 - 65 [facility] Hormone (PTH), S PG/ML LABORATORIES [facility] Specimen Anatomical Collection Method Collection Time Receive d Time (Source) Location / / Volume Laterality 03/20/2012 5:20 AM 2 5:20 CDT AM CDT May Ballesteros P.A.-C. LAB BLOOD ADD-ON Performing Organization Address City/[facility]/ZIP Code Phon e Number [facility] - [address] [address] [facility] Adulterants Survey, Urine (03/19/2012 6:00 PM CDT) [facility] Method Time Signature Creatinine, U 97.4 MG/DL [facility] (w/ADULT) [facility] Specific 1.022 [facility] [place] [facility] pH 5.3 [facility] Oxidants Negative [facility] Specimen Anatomical Collection Method Collection Time Receive d Time (Source) Location / / Volume Laterality 03/19/2012 6:00 PM 2 6:00 CDT PM CDT May Ballesteros P.A.-C. LAB URINE ORDERABLES Performing Organization Address [facility] Phon e Number [facility] - [address] [place] [address] [facility] Drug Abuse Survey, Urine (03/19/2012 6:00 PM CDT) [facility] Method [place]we[place] Signature Alcohol Negative Cutoff: [facility] 30 MG/DL [facility] Amphetamines, U Negative Cutoff: [facility] 500 NG/ML [facility] Phencyclidine Negative Cutoff: [facility] 25 NG/ML [facility] Tetrahydrocannabi Negative Cutoff: [facility] nol, U 20 NG/ML [facility] Comment: The drugs listed above are detected by keon martinez. ??Call the lab to initiate ? confirmatory testing if needed. ??Specim ens are retained in the laboratory for ? two weeks. ??This test is not intended f or use in employment-related testing. ? Barbiturates Screen Negative Cutoff: 200 NG/ML [facility] Benzodiazepines, U Negative Cutoff: 200 NG/ML [facility] Cocaine, Screen, U Negative Cutoff: 150 NG/ML [facility] Opiates . Cutoff: 300 NG/ML [facility] Comment: Presumptive Positive Specimen Anatomical Collection Method Collection Time Receive d Time (Source) Location / / Volume Laterality 03/19/2012 6:00 PM 2 6:00 CDT PM CDT May Ballesteros P.A.-C. LAB URINE ORDERABLES Performing Organization Address [facility] Code Phon e Number [facility] - [address] [place] [address] [facility] (ABNORMAL) Microscopic Manual (03/19/2012 6:00 PM CDT) Patholo gist Method Time Signature Microscopy Abnormal [facility] Blood <3 <3; /HPF [facility] WBC 1-3 1-3 [facility] (Males); LABORATORIES - 1-10 [facility] (Females) [place] ; /HPF Casts, Hyaline Occas /LPF [facility] Granular Casts Occas (A) /LPF [facility] Renal 1-3 (A) /HPF [facility] Epithelial LABORATORIES - Cells [facility] Crystals . [facility] Comment: Amorphous crystals present Specimen Anatomical Collection Method Collection Time Receive d Time (Source) Location / / Volume Laterality 03/19/2012 6:00 PM 2 6:00 CDT PM CDT May Ballesteros P.A.-C. LAB URINE ORDERABLES Performing Organization Address City/[facility] Phon e Number [facility] - [address] [place] [address] [facility] (ABNORMAL) Urinalysis with Microscopic (03/19/2012 6:00 PM CDT) Patholo gist Method Time Signature Source Catheter [facility] Appearance Bhakti Normal [facility] Glucose 22 (H) 0 - 15 [facility] MG/DL LAB[facility]ATORIES [facility] Protein, U 76 (H) 0 - 19 [facility] MG/DL [facility] Osmolality, 24 477 150 - 1150 [facility] HR, U MOSM/KG [facility] pH, 24 HR, U 5.5 4.5 - 8.0 [facility] Protein/Osmola 1.59 (H) <0.12 RATIO [facility] lity LABORATORIES [facility] Predicted 24 1468 MG/24 H [facility] Hr Protein [facility] Bilirubin Positive Negative [facility] (A) [facility] Hemoglobin, QL Trace (A) Negative [facility] Predicted 466-4625 MG/24 H [facility] Range [facility] Specimen Anatomical Collection Method Collection Time Receive d Time (Source) Location / / Volume Laterality 03/19/2012 6:00 PM 2 6:00 CDT PM CDT May Ballesteros P.A.-C. LAB URINE ORDERABLES Performing Organization Address City/State/ZIP Code Phon e Number [facility] - [address] [place], [place] [address] [facility] V&IRAD Vascular & Intervention (03/19/2012 3:26 PM CDT) Anatomical Region Laterality Modality N/A X-Ray Angiography Specimen (Source) Anatomical Collection Method Collection Time Re ceived Time Location / / Volume Laterality 03/19/2012 3:26 PM CDT Narrative 03/19/2012 4:17 PM CDT 19-Mar-2012 15:26:00 ??Exam: V&IRAD Vascular & Intervention Indications: PTC;biliary strictures, cho langitis ORIGINAL REPORT - 19-Mar-2012 16:17:00 SUMMARY: Percutaneous biliary drain plac ement through the prior transhepatic biliary drain tract. A 12Fr drain with extrasideholes was placed and approximately 160-170cc of purulent material was removed from the biliary abscess cavity. This d rain controls the biliary tree and contents of the large abscess cavity. ?? TECHNIQUE/FINDINGS: The patient has a dr aining wound from the previous percutaneous biliary drainage catheter site. Prior imaging reviewed. He was prepped and draped in the usual sterile fashion over th e upper abdomen. Wire and catheter were used to negotiate down this fistulous tract into a very large abscess cavity. Contrast injection demonstrates the large abscess and dilated biliary tree. A 12Fr l ocking loop catheter with extra sidehole s was then placed into the largest portion of this abscess cavity and approximately 160cc of purulent material was removed. Contrast injection demonstrates that t he biliary tree is now decompressed and well controlled by this drain. Drain was secured to the skin with 2-0 Prolene suture. No immediate complications. ?? PREPROCEDURE: Patient seen, evaluated, a nd history reviewed. Discussed risks, benefits, alternatives for procedure, and obtained informed consent. ??Patient understands information and questions answere d. Immediately prior to starting the pro cedure, in the presence of the assisting personnel, procedural pause was conducted to verify correct patient identity and verification of procedure to be performe d, and as applicable, correct side and s ite, correct patient position, availability of implants, special equipment, or special requirements, and all image and specimen identification data. The roles and responsibilities of care team members, residents, and fellows were discussed. Sedation provided by FORESTRY PROFESSOR. ?? Electronically signed by: ?? CDemetrius Noel MD [phone] 19-Mar-2012 16:17 ?Alan Hale MD [phone] 19-Mar-2012 16:17 Procedure Note Austin Noel M.D. - 09/20/2017Format ting of this note might be different from the original. 19-Mar-2012 15:26:00 Exam: V&IRAD Vascul ar & Intervention Indications: PTC;biliary strictures, cho langitis ORIGINAL REPORT - 19-Mar-2012 16:17:00 SUMMARY: Percutaneous biliary drain plac ement through the prior transhepatic biliary drain tract. A 12Fr drain with extrasideholes was placed and approximately 160-170cc of purulent material was removed from the biliary abscess cavity. This drain c ontrols the biliary tree and contents of the large abscess cavity. TECHNIQUE/FINDINGS: The patient has a dr aining wound from the previous percutaneous biliary drainage catheter site. Prior imaging reviewed. He was prepped and draped in the usual sterile fashion over the upper abdomen. Wire and catheter were used to negotiate down this fistulous tract into a very large abscess cavity. Contrast injection demonstrates the large abscess and dilated biliary tree. A 12Fr locking loop catheter with extra sideholes was then placed int o the largest portion of this abscess cavity and approximately 160cc of purulent material was removed. Contrast injection demonstrates that the biliary tree is now decompressed and well controlled by this drain. Drain was secured to the skin with 2-0 Prolene suture. No immediate complications. PREPROCEDURE: Patient seen, evaluated, a nd history reviewed. Discussed risks, benefits, alternatives for procedure, and obtained informed consent. Patient understands information and questions answered. Immediately prior to starting the proced ure, in the presence of the assisting personnel, procedural pause was conducted to verify correct patient identity and verification of procedure to be performed, and as applicable, correct side and site, corre ct patient position, availability of implants, special equipment, or special requirements, and all image and specimen identification data. The roles and responsibilities of care team members, residents, and fellows were dis cussed. Sedation provided by FORESTRY PROFESSOR. Electronically signed by: Janette Noel MD [phone] 19-Mar-2012 16:17 B enriqueta Hale MD [phone] 19-Mar-2012 16:17 Tomeka Rolon M.D. [facility] PROCEDURES DX Paranasal Sinuses 3+ Views (03/19/2012 1:12 PM CDT) Anatomical Region Laterality Modality Skull N/A Radiographic Imaging Specimen (Source) Anatomical Collection Method Collection Time Re ceived Time Location / / Volume Laterality 03/19/2012 1:12 PM CDT Narrative 03/19/2012 1:21 PM CDT 19-Mar-2012 13:12:00 ??Exam: Sinuses 3vw Indications: pre-transplant eval ORIGINAL REPORT - 19-Mar-2012 13:21:00 Sinus x-ray, minimum of three views: Postoperative changes to the orbits and paranasal sinuses but nothing for mucosal thickening or fluid. Electronically signed by: ?? Janette Brown MD [phone] 19-Mar-2012 13:21 Procedure Note Tres Brown M.D. - 09/20/2017Fo rmatting of this note might be different from the original. 19-Mar-2012 13:12:00 Exam: Sinuses 3vw Indications: pre-transplant eval ORIGINAL REPORT - 19-Mar-2012 13:21:00 Sinus x-ray, minimum of three views: Postoperative changes to the orbits and paranasal sinuses but nothing for mucosal thickening or fluid. Electronically signed by: Janette Brown MD [phone] 19-Mar-2012 13:21 Curt [facility] PROCE DURES DX Chest AP or PA and Lateral 2 Views (03/19/2012 1:12 PM CDT) Anatomical Region Laterality Modality Chest N/A Radiographic Imaging Specimen (Source) Anatomical Collection Method Collection Time Re ceived Time Location / / Volume Laterality 03/19/2012 1:12 PM CDT Narrative 03/19/2012 1:28 PM CDT 19-Mar-2012 13:12:00 ??Exam: Chest-- 2 Views Indications: pre-transplant eval ORIGINAL REPORT - 19-Mar-2012 13:28:00 Chest; 2 views: Slightly increased soft tissue prominenc e in the right subcarinal region since 09/18/2011. Cannot exclude adenopathy. Enlarged right cardiophrenic/ right diaphragmatic lymph nodes on yeste rday's abdominal CT scan are not evident on the chest x-ray. Chest CT would be helpful to evaluate for intrathoracic adenopathy. Chest otherwise negative. Electronically signed by: ?? Aly Kirby MD. ??[phone] 19-Mar-2012 13:2 8 Procedure Note Sandra Kirby M.D. - 09/20/2017Fo rmatting of this note might be different from the original. 19-Mar-2012 13:12:00 Exam: Chest-- 2 Vie ws Indications: pre-transplant eval ORIGINAL REPORT - 19-Mar-2012 13:28:00 Chest; 2 views: Slightly increased soft tissue prominenc e in the right subcarinal region since 09/18/2011. Cannot exclude adenopathy. Enlarged right cardiophrenic/ right diaphragmatic lymph nodes on yeste rday's abdominal CT scan are not evident on the chest x-ray. Chest CT would be helpful to evaluate for intrathoracic adenopathy. Chest otherwise negative. Electronically signed by: Aly Kirby MD. [phone] 19-Mar-2012 13:28 Curt [facility] PROCE DURES Hemochromatosis HFE Gene Analysis, Blood (03/19/2012 10:43 AM CDT) Specimen (Source) Anatomical Collection Method Collection Time Re ceived Time Location / / Volume Laterality 03/19/2012 10:43 AM CDT Narrative [facility] - 03/20/2012 8:44 PM CDT [id number] 10:43 ?Hemochromatosis HFE Gene Analysis,B Requested By: May Ballesteros PA-C ? Specimen ?Specimen ID ??LabID ? Test No. ?--- ------- ??--------- Blood ? [id number] ?? [id number] ?[id number] ? RESULT C282Y: ??Not detected. H63D: ?? Not detected. INTERPRETATION This result suggests a low risk for eith er a diagnosis of or predisposition for hereditary hemochroma tosis (HH). The diagnosis of HH cannot be excluded b ecause approximately 5 to 8% of patients with HH in a [facility] population do not have either the C282Y or H63D mutation. For other ethnic and racial groups, the percentage of patients with an unidentified mutation o n both chromosomes may differ. ??This result does not rule out the presence of disease causing mutations in other regio ns of the HFE gene or in other genes associated with hemoch romatosis. ??This result should be interpreted in the cont ext of clinical presentation and results of other labora tory tests (e.g., serum transferrin-iron saturation and se rum ferritin). The above interpretation assumes that te sting is being performed for a possible diagnosis of HH . ??For carrier testing, the interpretation of this resu lt depends on the family history and genotype of affected individuals. A genetic consultation may be of benefit . CAUTIONS: Test results should be interpreted in co ntext of clinical findings, family history, and other labo ratory data. Misinterpretation of results may occur i f the information provided is inaccurate or incomplete. Rare polymorphisms exist that could lead to false negative or positive results. ??If results obtain ed do not match the clinical findings, additional testing sh ould be considered. Bone marrow transplants from allogenic d onors will interfere with testing. Call [facility] Laborato rasheeda for instructions for testing patients who de souza ve received a bone marrow transplant. Laboratory developed test. METHOD A PCR-based assay was utilized to test f or the following three mutations in the HFE gene: C282Y, H63D, and S65C. Because of the minimal effect on iron me tabolism associated with the S65C mutation, it is only repor onel when it is found with the C282Y mutation (i.e. if the pat ient has the C282Y/S65C genotype). Signature Roshan Manrique MD, PhD Date Released 20 Mar 2012 20:36 Date Ordered 19 Mar 2012 11:09 Procedure Note 10/13/2017 [id number] 10:43 Hemochromatosis HFE Gene Analysis,B Requested By: May Ballesteros PA-C Specimen Specimen ID LabID Test No. ------- --- --------- Blood [id number] RESULT C282Y: Not detected. H63D: Not detected. INTERPRETATION This result suggests a low risk for eith er a diagnosis of or predisposition for hereditary hemochroma tosis (HH). The diagnosis of HH cannot be excluded b ecause approximately 5 to 8% of patients with HH in a [facility] population do not have either the C282Y or H63D mutation. For other ethnic and racial groups, the percentage of patients with an unidentified mutation o n both chromosomes may differ. This result does not rule ou t the presence of disease causing mutations in other regio ns of the HFE gene or in other genes associated with hemoch romatosis. This result should be interpreted in the cont ext of clinical presentation and results of other labora tory tests (e.g., serum transferrin-iron saturation and se rum ferritin). The above interpretation assumes that te sting is being performed for a possible diagnosis of HH . For carrier testing, the interpretation of this resu lt depends on the family history and genotype of affected individuals. A genetic consultation may be of benefit . CAUTIONS: Test results should be interpreted in co ntext of clinical findings, family history, and other labo ratory data. Misinterpretation of results may occur i f the information provided is inaccurate or incomplete. Rare polymorphisms exist that could lead to false negative or positive results. If results obtained do not match the clinical findings, additional testing sh ould be considered. Bone marrow transplants from allogenic d onors will interfere with testing. Call [facility] Laborato rasheeda for instructions for testing patients who de souza ve received a bone marrow transplant. Laboratory developed test. METHOD A PCR-based assay was utilized to test f or the following three mutations in the HFE gene: C282Y, H63D, and S65C. Because of the minimal effect on iron me tabolism associated with the S65C mutation, it is only repor onel when it is found with the C282Y mutation (i.e. if the pat ient has the C282Y/S65C genotype). Signature Rosahn Manrique MD, PhD Date Released 20 Mar 2012 20:36 Date Ordered 19 Mar 2012 11:09 May Ballesteros P.A.-C. LAB GENETIC TESTING Performing Organization Address City/State/ZIP Code Phon e Number [facility] - [address] [place], [place] [address] [facility] HCV RNA Detect / Quant, S (03/19/2012 10:42 AM CDT) [facility] Method Time Signature HX HCV RNA Undetected Undetected [facility] Detect/Quant IU/ML LABORATORIES - , S [facility] Comment: Result in log IU/mL is Undetected. ? The quantification range of this assay i s 43 IU/mL to 69,000,000 IU/mL (1.63 ? log IU/mL to 7.84 log IU/mL). Testing wa s performed by the DIDIER ? AmpliPrep/DIDIER TaqMan HCV Test ([employer] ? Specimen Anatomical Collection Method Collection Time Receive d Time (Source) Location / / Volume Laterality 03/19/2012 10:42 03/19/2012 AM CDT 10:42 AM CDT May Ballesteros P.A.-C. LAB MICROBIOLOGY - BLOOD ORD ERABLES Performing Organization Address City/State/ZIP Code Phon e Number [facility] - [address] [place], [place] [address] [place] [address] HLA Class II SAB Antibody Screen (03/19/2012 10:42 AM CDT) [facility] gist Method Time Signature SAB DRB1 . [facility] Specificity LABORATORIES - [facility] Comment: 4[500], 18[412] ? Format: Serologic Equivalent[Normalized Value] ? shown in decreasing order. Note: A serol ogic equivalent ? displayed multiple times could indicate different alleles. ? SAB [id number] Specificity NONE [facility] Class II SAB Overall Result Positive Not Applicable [facility] Class II SAB cPRA 44 [facility] Comment: This PRA is a [facility] Typ[facility] ? Laboratory calculated PRA. PRA is based on the antigen ? frequency of the Tissue Typing patient a nd donor ? population. ??PRA reflects all antibodie s with a normalized ? value (MFI) above 300. ? SAB DQB1 Specificity . [facility]ATOR[facility] - [facility] Comment: 6[1262] ? Format: Serologic Equivalent[Normalized Value] ? shown in decreasing order. Note: A serol ogic equivalent ? displayed multiple times could indicate different alleles. ? Method: Luminex Flow Cytometry ? Specimen Anatomical Collection Method Collection Time Receive d Time (Source) Location / / Volume Laterality 03/19/2012 10:42 03/19/2012 AM CDT 10:42 AM CDT May Ballesteros P.A.-C. LAB HLA ORDERABLES Performing Organization Address City/State/ZIP Code Phon e Number [facility] - [address] [place], [place] [address] [facility] (ABNORMAL) Cytomegalovirus Ab, IgM and IgG (03/19/2012 10:42 AM CDT) [facility] gist Method Time Signature HX Cmv-Igg >=60 <4 AU/ML [facility] HX Cmv-Igm Equivocal (A) Negative [facility] Comment: Recommend follow-up testing in 10-14 day s if clinically ? indicated. ? Specimen Anatomical Collection Method Collection Time Receive d Time (Source) Location / / Volume Laterality 03/19/2012 10:42 03/19/2012 AM CDT 10:42 AM CDT May Blalesteros P.A.-C. LAB MICROBIOLOGY - BLOOD ORD ERABLES Performing Organization Address City/State/[facility] Code Phon e Number [facility] LABORATORIES - [address] [place], [place] [address] [facility] HIV-1/-2 Ab Evaluation (03/19/2012 10:42 AM CDT) [facility] gist Method Time Signature HX Hiv-1/-2 Negative Negative [facility] Ab Screen, S LABORATORIES - [facility] Comment: If this test is ordered as a follow-up t est to a reactive ? rapid HIV antibody test result, suppleme ntal testing by ? Western blot is recommended, even when t his test result is ? negative. ? Specimen Anatomical Collection Method Collection Time Receive d Time (Source) Location / / Volume Laterality 03/19/2012 10:42 03/19/2012 AM CDT 10:42 AM CDT May Ballesteros P.A.-C. LAB MICROBIOLOGY - BLOOD ORD ERABLES Performing Organization Address City/State/ZIP Code Phon e Number [facility] LABORATORIES - [address] [place] [address] [facility] Troponin T (03/19/2012 10:42 AM CDT) P athologist Signature Troponin T, S <0.01 <0.01 [facility] NG/ML LABORATORIES - [facility] Specimen Anatomical Collection Method Collection Time Receive d Time (Source) Location / / Volume Laterality 03/19/2012 10:42 03/19/2012 AM CDT 10:42 AM CDT May Ballesteros P.A.-C. LAB BLOOD ADD-ON Performing Organization Address City/State/ZIP Code Phon e Number [facility] LABORATORIES - [address] [place] [address] [facility] HX Syphilis Antibody Ray, S (03/19/2012 10:42 AM CDT) Patholo gist Method Time Signature HX Syphilis Negative Negative [facility] Igg Ab LABORATORIES - W/Reflex, S [facility] Specimen Anatomical Collection Method Collection Time Receive d Time (Source) Location / / Volume Laterality 03/19/2012 10:42 03/19/2012 AM CDT 10:42 AM CDT May Ballesteros P.A.-C. LAB HISTORICAL ORDERS Performing Organization Address City/[facility]/ZIP Code Phon e Number [facility] LABORATORIES - [address] [place] [address] [facility] Hepatitis A Total Ab, S (03/19/2012 10:42 AM CDT) [facility] [employer] Method Time Signature Hepatitis A Negative Negative [facility] Total Ab, S LABORATORIES - [facility] Specimen Anatomical Collection Method Collection Time Receive d Time (Source) Location / / Volume Laterality 03/19/2012 10:42 03/19/2012 AM CDT 10:42 AM CDT May Ballesteros P.A.-C. LAB MICROBIOLOGY - BLOOD ORD ERABLES Performing Organization Address City/State/ZIP Code Phon e Number [facility] LABORATORIES - [address] [place], [place] [address] [facility] HLA Class I SAB Antibody Screen (03/19/2012 10:42 AM CDT) [facility] Method Time Signature Class I SAB Positive Not Applicable [facility] Overall LABORATORIES - Result [facility] Class I SAB 0 [facility] cPRA LABORATORIES - [facility] Comment: This PRA is a [facility] Typing ? Laboratory calculated PRA. PRA is based on the antigen ? frequency of the Tissue Typing patient a nd donor ? population. ??PRA reflects all antibodie s with a normalized ? value (MFI) above 300. ? SAB A Specificity . [facility] - [facility] Comment: 80[307] ? Format: Serologic Equivalent[Normalized Value] ? shown in decreasing order. Note: A serol ogic equivalent ? displayed multiple times could indicate different alleles. ? SAB B Specificity . [facility] Comment: 75[511] ? Format: Serologic Equivalent[Normalized Value] ? shown in decreasing order. Note: A serol ogic equivalent ? displayed multiple times could indicate different alleles. ? SAB C Specificity NONE [facility] Comment: Method: Luminex Flow Cytometry Specimen Anatomical Collection Method Collection Time Receive d Time (Source) Location / / Volume Laterality 03/19/2012 10:42 03/19/2012 AM CDT 10:42 AM CDT May Ballesteros P.A.-C. LAB HLA ORDERABLES Performing Organization Address City/[facility]/ZIP Code Phon e Number [facility] LABORATORIES - [address] [place] [address] [facility] (ABNORMAL) Zinc (03/19/2012 10:42 AM CDT) P athologist Signature Zinc, S 0.41 (L) 0.66 - [facility] 1.10 LABORATORIES - MCG/ML [facility] Specimen Anatomical Collection Method Collection Time Receive d Time (Source) Location / / Volume Laterality 03/19/2012 10:42 03/19/2012 AM CDT 10:42 AM CDT May Ballesteros P.A.-C. LAB BLOOD NON ADD-ON Performing Organization Address City/[facility]/ZIP Code Phon e Number [facility] LABORATORIES - [address] [place] [address] [facility] (ABNORMAL) Amywq-7-Cxjpvaykarg Phenotype (03/19/2012 10:42 AM CDT) Patholo gist Method Time Signature Wgdeh-8-Wrepeb 290 (H) 100 - 190 [facility] ypsin, S MG/DL LABORATORIES - [facility] Vmvez-0-Nxmenz MM BANDS [facility] ypsin LABORATORIES - Phenotype [facility] Specimen Anatomical Collection Method Collection Time Receive d Time (Source) Location / / Volume Laterality 03/19/2012 10:42 03/19/2012 AM CDT 10:42 AM CDT May Ballesteros P.A.-C. LAB BLOOD ADD-ON Performing Organization Address City/[facility]/ZIP Code Phon e Number [facility] LABORATORIES - [address] [place] [address] [facility] Microbiology Reports (03/19/2012 9:46 AM CDT) Specimen Anatomical Collection Method Collection Time Receive d Time (Source) Location / / Volume Laterality 03/19/2012 9:46 AM 2 5:03 CDT PM CDT Narrative [facility] LABORATORIES [facility] - 04/14/2012 1:26 PM CDT 19-MAR-2012 ABDOMINAL FLUID, ANTERIOR PIRATE ABDOMINAL WALL ABSCESS/PUS ?SoftOrd# [id number] ?(Specimen Collected 09:46; Received 19-MAR-2012 17:02) ?[facility] [place] ?BACTERIAL CULTURE, ANAEROBIC ? (Reported 19-MAR-2012 22:49) CANCEL ?Cancel reason - 03/19/2012 2 2:49 Anaerobic Culture results reported under Aerobic Culture results for ?this specimen type. ?Bacterial aerobic and anaero bic susceptibilities requested. Placed in Bactec aerobic and Bactec ?anaerobic bottles ?BACTERIAL CULTURE, AEROBIC ?(Reported 27-MAR-2012 15:08) FINAL ?STAPHYLOCOCCUS EPIDERMIDIS ? ?Growth after 2 days ?ENTEROCOCCUS FAECALIS ? Growth after 2 days ?GRAM NEGATIVE BACILLUS ?Growth after 2 days ?Not further identified. ?GRAM POSITIVE BACILLUS ?Growth after 4 days ?Not further identified. ?Culture yields >4 types of a erobic and/or anaerobic bacteria. ??[place] [phone] if ?further identification is cl inically required. ?S=Susceptible; I=Intermed iate; R=Resistant; N=Not susceptible; D=Dose-dependent susceptible; ?Results in mcg/mL ?STAPHYLOCOCCUS EPIDERMIDIS ?Oxacillin ?>2 R ?Levofloxacin ?4 R ?Clindamycin ?>2 R ?Minocycline ? <=1 S ?TMP/SMX ?<=.5/9.5 S ?Vancomycin ?2 S ?Rifampin ?<=0.5 S ?Rifampin: Rifampin sofiya uld not be used as monotherapy ?ENTEROCOCCUS FAECALIS ?Penicillin ?1 S ?Gent Synergy ?<=500 S ?Vancomycin ?<=2 S ?GRAM STAIN ?(Reported 19-MAR-2012 19:19) FINAL ?Gram positive coccus, Many. Gram negative bacillus, Many. Gram positive bacillus, ?Many. White blood cells, Man y. ?FUNGAL SMEAR ?(Reported 19-MAR-2012 20:31) FINAL ?YEAST ?FUNGAL CULTURE, ROUTINE ? (Reported 23-OCT-2012 13:26) FINAL ?RIMMA KRUSEI ?Ma ny ?Identified by mass spectr ometry. Rimma krusei is intrinsically resistant to Fluconazole. ?RIMMA PARAPSILOSIS ??Many ?Identified by mass spectr ometry. ?S=Susceptible; I=Intermed iate; R=Resistant; N=Not susceptible; D=Dose-dependent susceptible; ?Results in mcg/mL ?RIMMA KRUSEI ?Amphotericin B ?1 S ?Caspofungin ?0.25 S ?Fluconazole ?32 R ?5-flucytosine ?16 I ?Itraconazole ? 0.25 D ?Posaconazole ? 0.25 S ?Voriconazole ? 0.25 S ?5-flucytosine: Flucyto sine should not be used as monotherapy due to the potential of existing or ?emerging resistance. ?RIMMA PARAPSILOSIS ?Amphotericin B ? 0 .25 S ?Caspofungin ? 2 S ?Fluconazole ? 0.5 S ?5-flucytosine ? 2 S ?Itraconazole ? 0.06 S ?Posaconazole ? 0.03 S ?Voriconazole ?<=0. 008 S ?5-flucytosine: Flucyto sine should not be used as monotherapy due to the potential of existing or ?emerging resistance. Procedure Note 10/01/2017 19-MAR-2012 ABDOMINAL FLUID, ANTERIOR PIRATE ABDOMINAL WALL ABSCESS/PUS SoftOrd# [id number] (Specimen Collected 19-MAR-2012 09:46; Received 19-MAR-2012 17:02) [facility] BACTERIAL CULTURE, ANAEROBIC (Reported 19-MAR-2012 22:49) CANCEL Cancel reason - 03/19/2012 22:49 Anaero bic Culture results reported under Aerobic Culture results for this specimen type. Bacterial aerobic and anaerobic suscept ibilities requested. Placed in Bactec aerobic and Bactec anaerobic bottles BACTERIAL CULTURE, AEROBIC (Reported 0 27-MAR-2012 15:08) FINAL STAPHYLOCOCCUS EPIDERMIDIS Growth after 2 days ENTEROCOCCUS FAECALIS Growth after 2 da ys GRAM NEGATIVE BACILLUS Growth after 2 d ays Not further identified. GRAM POSITIVE BACILLUS Growth after 4 d ays Not further identified. Culture yields >4 types of aerobic and/ or anaerobic bacteria[place] [phone] if further identification is clinically re quired. S=Susceptible; I=Intermediate; R=Resist ant; N=Not susceptible; D=Dose-dependent susceptible; Results in mcg/mL STAPHYLOCOCCUS EPIDERMIDIS Oxacillin >2 R Levofloxacin 4 R Clindam ycin >2 R Minocycline <=1 S TMP/SMX <=.5/9.5 S Va ncomycin 2 S Rifampin <=0.5 S Rifampin: Rifampin should not be used a s monotherapy ENTEROCOCCUS FAECALIS Penicillin 1 S Gent Synergy <=500 S Van comycin <=2 S GRAM STAIN (Reported 19-MAR-2012 19:19 ) FINAL Gram positive coccus, Many. Gram negati ve bacillus, Many. Gram positive bacillus, Many. White blood cells, Many. FUNGAL SMEAR (Reported 19-MAR-2012 20: 31) FINAL YEAST FUNGAL CULTURE, ROUTINE (Reported 13:26) FINAL RIMMA KRUSEI Many Identified by mass spectrometry. Candid a krusei is intrinsically resistant to Fluconazole. RIMMA PARAPSILOSIS Many Identified by mass spectrometry. S=Susceptible; I=Intermediate; R=Resist ant; N=Not susceptible; D=Dose-dependent susceptible; Results in mcg/mL RIMMA KRUSEI Amphotericin B 1 S Caspofungin 0.25 S F luconazole 32 R 5-flucytosine 16 I Itraconazole 0.25 D Posaconazole 0.25 S Voriconazole 0.25 S 5-flucytosine: Flucytosine should not b e used as monotherapy due to the potential of existing or emerging resistance. RIMMA PARAPSILOSIS Amphotericin B 0.25 S Caspofungin 2 S F luconazole 0.5 S 5-flucytosine 2 S Itraconazole 0.06 S P osaconazole 0.03 S Voriconazole <=0.008 S 5-flucytosine: Flucytosine should not b e used as monotherapy due to the potential of existing or emerging resistance. Filiberto Antony M.D. LAB MICROBIOLOGY - GENERAL O RDERABLES Performing Organization Address City/State/ZIP Code Phon e Number [facility] [place] - [address] [place], [place] [address] [facility] Microbiology Reports (03/19/2012 7:14 AM CDT) Specimen Anatomical Collection Method Collection Time Receive d Time (Source) Location / / Volume Laterality 03/19/2012 7:14 AM 2 7:15 CDT AM CDT Narrative [facility] - 03/22/2012 3:02 PM CDT 19-MAR-2012 ABDOMEN, SWAB ANTERIOR WALL ABCESS ? SoftOrd# [id number] ?(Specimen Collected 07:14; Received 19-MAR-2012 07:14) ?[facility] ?Bacterial aerobic susceptibi lities requested. ?GRAM STAIN ?(Reported 19-MAR-2012 11:12) FINAL ?Gram negative bacillus, Many . Gram positive coccus resembling STREPTOCOCCUS, Few. ?Gram positive bacillus, Few. ?BACTERIAL CULTURE, AEROBIC ?(Reported 22-MAR-2012 15:02) FINAL ?ENTEROCOCCUS FAECALIS ?3+ ?STAPHYLOCOCCUS COAGULASE-NEG ATIVE ??2+ ?If susceptibilities timi ed, call Ext. [phone] ?YEAST ?1+ One [place] ?Previous comment was modifie d at 15:02 on 03/22/2012: Usual efrem ?S=Susceptible; I=Intermed iate; R=Resistant; N=Not susceptible; D=Dose-dependent susceptible; ?Results in mcg/mL ?ENTEROCOCCUS FAECALIS ?Penicillin ?1 S ?Gent Synergy ?<=500 S ?Vancomycin ?<=2 S ?Daptomycin ?0.5 S ?BACTERIAL CULTURE, ANAEROBIC ? (Reported 19-MAR-2012 08:05) CANCEL ?Cancel reason - 03/19/2012 0 8:05 Inappropriate collection container for test requested. Please submit ?syringe aspirate injected in to anaerobic vial. Procedure Note 10/01/2017 19-MAR-2012 ABDOMEN, SWAB ANTERIOR WALL ABCESS SoftOrd# [id number] (Specimen Collected 19-MAR-2012 07:14; Received 19-MAR-2012 07:14) [facility] Bacterial aerobic susceptibilities requ ested. GRAM STAIN (Reported 19-MAR-2012 11:12 ) FINAL Gram negative bacillus, Many. Gram posi tive coccus resembling STREPTOCOCCUS, Few. Gram positive bacillus, Few. BACTERIAL CULTURE, AEROBIC (Reported 3 15:02) FINAL ENTEROCOCCUS FAECALIS 3+ STAPHYLOCOCCUS COAGULASE-NEGATIVE 2+ If susceptibilities desired, call Ext. [phone] YEAST 1+ One [place] Previous comment was modified at 15:02 on 03/22/2012: Usual efrem S=Susceptible; I=Intermediate; R=Resist ant; N=Not susceptible; D=Dose-dependent susceptible; Results in mcg/mL ENTEROCOCCUS FAECALIS Penicillin 1 S Gent Synergy <=500 S Van comycin <=2 S Daptomycin 0.5 S BACTERIAL CULTURE, ANAEROBIC (Reported 19-MAR-2012 08:05) CANCEL Cancel reason - 03/19/2012 08:05 Inappr opriate collection container for test requested. Please submit syringe aspirate injected into anaerobi c vial. Filiberto Antony M.D. LAB MICROBIOLOGY - GENERAL O RDERABLES Performing Organization Address City/State/ZIP Code Phon e Number [facility] - [address] [place], [place] [address] [facility] PT (Prothrombin Time) with INR (03/19/2012 5:18 AM CDT) [facility] gist Method Time Signature Prothrombin 13.8 9.5 - 13.8 [facility] Time, P [facility] INR 1.1 0.8 - 1.2 [facility] Specimen Anatomical Collection Method Collection Time Receive d Time (Source) Location / / Volume Laterality 03/19/2012 5:18 AM 2 5:18 CDT AM CDT Filiberto Antony M.D. LAB BLOOD ADD-ON Performing Organization Address City/State/ZIP Code Phon e Number [facility] LABORATORIES - [address] [place] [address] [facility] (ABNORMAL) AST (Aspartate Aminotransferase) (03/19/2012 5:18 AM CDT) Analysis Performed At Patho logist Time Signature AST, Total, S 61 (H) 8 - 48 U/L [facility] Specimen Anatomical Collection Method Collection Time Receive d Time (Source) Location / / Volume Laterality 03/19/2012 5:18 AM 2 5:18 CDT AM CDT Filiberto Antony M.D. LAB BLOOD ADD-ON Performing Organization Address City/[facility] Code Phon e Number [facility] LABORATORIES - [address] [place] [address] [facility] (ABNORMAL) CBC with Differential - No Alerts (03/19/2012 5:18 AM CDT) Patholo gist Method Time Signature Hemoglobin 10.6 (L) 13.5 - [facility] 17.5 G/DL LABORATORIES - [facility] Hematocrit 30.0 (L) 38.8 - [facility] 50.0 % LABORATORIES [facility] RBC Distrib 14.8 11.8 - [facility] Width 15.6 % [facility] Platelet Count 171 150 - 450 [facility] X10(9)/L LABORATORIES [facility] Lymphocytes 0.71 (L) 0.90 - [facility] 2.90 LABORATORIES - X10(9)/L [facility] Monocytes 1.08 (H) 0.30 - [facility] 0.90 LABORATORIES - X10(9)/L [facility] Erythrocytes 3.55 (L) 4.32 - [facility] 5.72 LABORATORIES - X10(12)/L [facility] MCV 84.5 81.2 - [facility] 95.1 FL LABORATORIES [facility] Leukocytes 11.5 (H) 3.5 - [facility] 10.5 LABORATORIES - X10(9)/L [facility] Neutrophils 9.66 (H) 1.70 - [facility] 7.00 LABORATORIES - X10(9)/L [facility] Eosinophils 0.00 (L) 0.05 - [facility] 0.50 LABORATORIES - X10(9)/L [facility] Basophils 0.01 0.00 - [facility] 0.30 LABORATORIES - X10(9)/L [facility] Specimen Anatomical Collection Method Collection Time Receive d Time (Source) Location / / Volume Laterality 03/19/2012 5:18 AM 2 5:18 CDT AM CDT Filiberto Antony M.D. LAB BLOOD NON ADD-ON Performing Organization Address City/[facility]/ZIP Code Phon e Number [facility] LABORATORIES - [address] [place] [address] [facility] (ABNORMAL) Alkaline Phosphatase (03/19/2012 5:18 AM CDT) [facility] Method Time Signature Alkaline 299 (H) 45 - 115 [facility] Phosphatase, S U/L LABORATORIES [facility] Specimen Anatomical Collection Method Collection Time Receive d Time (Source) Location / / Volume Laterality 03/19/2012 5:18 AM 2 5:18 CDT AM CDT Filiberto Antony M.D. LAB BLOOD ADD-ON Performing Organization Address City/[facility]/ZIP Code Phon e Number [facility] LABORATORIES - [address] [place] [address] [facility] (ABNORMAL) Calcium, Total (03/19/2012 5:18 AM CDT) [facility] gist Method Time Signature Calcium, 8.8 (L) 8.9 - 10.1 [facility] Total, S MG/DL LABORATORIES [facility] Specimen Anatomical Collection Method Collection Time Receive d Time (Source) Location / / Volume Laterality 03/19/2012 5:18 AM 2 5:18 CDT AM CDT Filiberto Antony M.D. LAB BLOOD ADD-ON Performing Organization Address City/State/ZIP Code Phon e Number [facility] LABORATORIES - [address] [place] [address] [facility] Magnesium (03/19/2012 5:18 AM CDT) P athologist Signature Magnesium, S 1.8 1.7 - 2.3 [facility] MG/DL LABORATORIES [facility] Specimen Anatomical Collection Method Collection Time Receive d Time (Source) Location / / Volume Laterality 03/19/2012 5:18 AM 2 5:18 CDT AM CDT Filiberto Antony M.D. LAB BLOOD ADD-ON Performing Organization Address City/State/ZIP Code Phon e Number [facility] LABORATORIES - [address] [place] [address] [facility] (ABNORMAL) ALT (Alanine Aminotransferase) (03/19/2012 5:18 AM CDT) [facility] Method Time Signature Alanine 62 (H) 7 - 55 [facility] Aminotransferase U/L LABORATORIES - (ALT), S [facility] Specimen Anatomical Collection Method Collection Time Receive d Time (Source) Location / / Volume Laterality 03/19/2012 5:18 AM 2 5:18 CDT AM CDT Filiberto Antony M.D. LAB BLOOD ADD-ON Performing Organization Address City/[facility]/ZIP Code Phon e Number [facility] LABORATORIES - [address] [place] [address] [facility] (ABNORMAL) Bilirubin (03/19/2012 5:18 AM CDT) [facility] Method Time Signature Bilirubin, 18.1 (H) 0.1 - 1.0 [facility] Total, S MG/DL LABORATORIES - [facility] Bilirubin, 14.5 (H) 0.0 - 0.3 [facility] Direct, S MG/DL LABORATORIES - [facility] Specimen Anatomical Collection Method Collection Time Receive d Time (Source) Location / / Volume Laterality 03/19/2012 5:18 AM 2 5:18 CDT AM CDT Filiberto Antony M.D. LAB BLOOD ADD-ON Performing Organization Address City/[facility]/ZIP Code Phon e Number [facility] LABORATORIES - [address] [place] [address] [facility] (ABNORMAL) Albumin (03/19/2012 5:18 AM CDT) P athologist Signature Albumin, S 2.9 (L) 3.5 - 5.0 [facility] G/DL LABORATORIES - [facility] Specimen Anatomical Collection Method Collection Time Receive d Time (Source) Location / / Volume Laterality 03/19/2012 5:18 AM 2 5:18 CDT AM CDT Filiberto Antony M.D. LAB BLOOD ADD-ON Performing Organization Address City/[facility]/ZIP Code Phon e Number [facility] LABORATORIES - [address] [place] [address] [facility] (ABNORMAL) Electrolyte (Chem 4) Panel (03/19/2012 5:18 AM CDT) [facility] gist Method Time Signature Chloride, S 95 (L) 100 - 108 [facility] MMOL/L LABORATORIES - [facility] HX Bicarbonate, 19 (L) 22 - 29 [facility] P/S MMOL/L LABORATORIES - [facility] BUN (Blood Urea 28 (H) 8 - 24 [facility] Nitrogen), S MG/DL LABORATORIES [facility] Anion Gap 13 7 - 15 [facility] LABORATORIES - [facility] eGFR >60 >60 [facility] Non-Black/Afric ML/MIN/BS LABORATORIES - [place] A [facility] eGFR-Black/Afri >60 >60 [facility] can [place] ML/MIN/BS LABORATORIES - [facility] Sodium, S 127 (L) 135 - 145 [facility] MMOL/L LABORATORIES [facility] Potassium, S 4.3 3.6 - 5.2 [facility] MMOL/L [facility] Glucose, S 170 (H) 70 - 140 [facility] MG/DL LABORATORIES - [facility] Creatinine 0.9 0.8 - 1.3 [facility] MG/DL LABORATORIES - [facility] Specimen Anatomical Collection Method Collection Time Receive d Time (Source) Location / / Volume Laterality 03/19/2012 5:18 AM 2 5:18 CDT AM CDT Filiberto Antony M.D. LAB BLOOD ADD-ON Performing Organization Address City/State/ZIP Code Phon e Number [facility] LABORATORIES - [address] [address] [facility] Tacrolimus Level (03/19/2012 5:17 AM CDT) Analysis Performed At [facility] logist Time Signature Tacrolimus, B 8.9 5.0-15.0 [facility] (Trough) LABORATORIES - NG/ML [facility] Tacrolimus . [facility] Blood Date of LABORATORIES - Last Dose [facility] Comment: Not Specified Tacrolimus Time of Last Dose . [facility] Comment: Not Specified Tacrolimus Blood Dose, mg . MG [facility] LABORATORIES - [facility] Comment: Not Specified Specimen Anatomical Collection Method Collection Time Receive d Time (Source) Location / / Volume Laterality 03/19/2012 5:17 AM 2 5:17 CDT AM CDT Filiberto Antony M.D. LAB BLOOD NON ADD-ON Performing Organization Address City/[facility]/ZIP Code Phon e Number [facility] LABORATORIES - [address] [address] [facility] Ketones, Qual, Urine (03/18/2012 11:14 PM CDT) [facility] Method Time Signature HX Ketones, Negative Negative [facility] Ql. MG/DL [facility] Specimen Anatomical Collection Method Collection Time Receive d Time (Source) Location / / Volume Laterality 03/18/2012 11:14 03/18/2012 PM CDT 11:14 PM CDT Filiberto Antony M.D. LAB URINE ORDERABLES Performing Organization Address City/[facility] Phon e Number [facility] - [address] [address] [facility] (ABNORMAL) Microscopic Manual (03/18/2012 11:14 PM CDT) [facility] Method Time Signature Microscopy Abnormal [facility] WBC 1-3 1-3 [facility] (Males); LABORATORIES - 1-10 [facility] (Females) [place] ; /HPF Casts, Hyaline Occas /LPF [facility] Granular Casts 1-3 (A) /LPF [facility] Renal 1-3 (A) /HPF [facility] Epithelial LABORATORIES - Cells [facility] Crystals . [facility] Comment: Amorphous crystals present Specimen Anatomical Collection Method Collection Time Receive d Time (Source) Location / / Volume Laterality 03/18/2012 11:14 03/18/2012 PM CDT 11:14 PM CDT Filiberto Antony M.D. LAB URINE ORDERABLES Performing Organization Address City/[facility]/ZIP Code Phon e Number [facility] LABORATORIES - [address] [address] [facility] Gram Stain, Urine (03/18/2012 11:14 PM CDT) [facility] Method Time Signature Gram's Stain, Negative [facility] Screen, U LABORATORIES [facility] Specimen Anatomical Collection Method Collection Time Receive d Time (Source) Location / / Volume Laterality 03/18/2012 11:14 03/18/2012 PM CDT 11:14 PM CDT Filiberto Antony M.D. LAB URINE ORDERABLES Performing Organization Address City/[facility]/ZIP Code Phon e Number [facility] LABORATORIES - [address] [place] [address] [facility] (ABNORMAL) Urinalysis with Microscopic (03/18/2012 11:14 PM CDT) [facility] gist Method Time Signature Bilirubin Positive (A) Negative [facility] Osmolality, 504 150 - 1150 [facility] 24 HR, U MOSM/KG [facility] Glucose 644 (H) 0 - 15 [facility] MG/DL [facility] Protein, U 91 (H) 0 - 19 [facility] MG/DL [facility] Protein/Osmol 1.81 (H) <0.12 RATIO [facility] ality [facility] Predicted 24 1654 MG/24 H [facility] Hr Protein [facility] Predicted 525-5210 MG/24 H [facility] Range [facility] Source Midstream [facility] Appearance Bhakti Normal [facility] pH, 24 HR, U 5.5 4.5 - 8.0 [facility] Hemoglobin, Moderate (A) Negative [facility] QL [facility] Specimen Anatomical Collection Method Collection Time Receive d Time (Source) Location / / Volume Laterality 03/18/2012 11:14 03/18/2012 PM CDT 11:14 PM CDT Filiberto Antony M.D. LAB URINE ORDERABLES Performing Organization Address [facility]/ZIP Code Phon e Number [facility] LABORATORIES - [address] [place] [address] [facility] Microbiology Reports (03/18/2012 7:33 PM CDT) Specimen Anatomical Collection Method Collection Time Receive d Time (Source) Location / / Volume Laterality 03/18/2012 7:33 PM 2 7:33 CDT PM CDT Narrative [facility] - 03/21/2012 8:20 AM CDT 18-MAR-2012 BLOOD, ? SoftOrd# [id number] ?(Specimen Collected 19:33; Received 18-MAR-2012 22:49) ?[facility] ?BACTERIA/RIMMA CULTURE, BLOOD ? (Reported 21-MAR-2012 08:20) FINAL ?ENTEROCOCCUS FAECALIS ??Grow th after 8 Hours ?3 of 3 Bottles, Susceptib ilities performed on another specimen [id number] Procedure Note 10/01/2017 18-MAR-2012 BLOOD, SoftOrd# [id number] (Specimen Collected 18-MAR-2012 19:33; Received 18-MAR-2012 22:49) [facility] BACTERIA/RIMMA CULTURE, BLOOD (Repor noel 21-MAR-2012 08:20) FINAL ENTEROCOCCUS FAECALIS Growth after 8 Ho urs 3 of 3 Bottles, Susceptibilities perfor med on another specimen [id number] Filiberto Antony M.D. LAB MICROBIOLOGY - GENERAL O [facility] Performing Organization Address City/State/ZIP Code Phon e Number [facility] - [address] [place], [place] [address] [facility] Microbiology Reports (03/18/2012 7:32 PM CDT) Specimen Anatomical Collection Method Collection Time Receive d Time (Source) Location / / Volume Laterality 03/18/2012 7:32 PM 2 7:33 CDT PM CDT Narrative [facility] - 03/21/2012 8:23 AM CDT 18-MAR-2012 BLOOD, ? SoftOrd# [id number] ?(Specimen Collected 19:32; Received 18-MAR-2012 22:48) ?[facility] ?BACTERIA/RIMMA CULTURE, BLOOD ? (Reported 21-MAR-2012 08:23) FINAL ?ENTEROCOCCUS FAECALIS ??Grow th after 8 Hours ?3 of 3 Bottles, Susceptib ilities performed on another specimen [id number] Procedure Note 10/01/2017 18-MAR-2012 BLOOD, SoftOrd# [id number] (Specimen Collected 18-MAR-2012 19:32; Received 18-MAR-2012 22:48) [facility] BACTERIA/RIMMA CULTURE, BLOOD (Repor onel 21-MAR-2012 08:23) FINAL ENTEROCOCCUS FAECALIS Growth after 8 Ho urs 3 of 3 Bottles, Susceptibilities perfor med on another specimen [id number] Filiberto Antony M.D. LAB MICROBIOLOGY - GENERAL O RDERABLES Performing Organization Address City/State/ZIP Code Phon e Number [facility] LABORATORIES - [address] HX Bacterial Enteric Pathogens Pcr-Id (03/18/2012 12:12 PM CDT) athologist Signature Specimen stool [facility] Source LABORATORIES - (Bacterial [facility] enteric path) [place] Bacterial . [facility] enteric LABORATORIES - pathogens PCR [facility] Comment: Negative for Campylobacter jejuni, Campy lobacter coli, Salmonella, Shigella, Yersinia, shiga ? toxin-producing Escherichia coli and ent eroinvasive E. coli DNA ? Laboratory developed test. ? Specimen Anatomical Collection Method Collection Time Receive d Time (Source) Location / / Volume Laterality 03/18/2012 12:12 03/18/2012 PM CDT 12:12 PM CDT Leonid Gonzalez M.D. LAB HISTORICAL ORDERS Performing Organization Address City/State/ZIP Code Phon e Number [facility] LABORATORIES - [address] [place], [place] [address] [facility] (ABNORMAL) C. difficile Toxin PCR, F (03/18/2012 12:12 PM CDT) [facility] gist Method Time Signature Specimen stool [facility] Source LABORATORIES - (C.difficile [facility] Toxin PCR) [place] C. difficile Positive Not [facility] toxin (A) Applicable LABORATORIES - [facility] Comment: Patient Requires Modified Contact Precau tions ? if Hospitalized. ? Laboratory developed test. ? Specimen Anatomical Collection Method Collection Time Receive d Time (Source) Location / / Volume Laterality 03/18/2012 12:12 03/18/2012 PM CDT 12:12 PM CDT Leonid Gonzalez M.D. LAB MICROBIOLOGY - GENERAL O RDERABLES Performing Organization Address City/[facility] Phon e Number [facility] LABORATORIES - [address] [place] [address] [facility] Tacrolimus Level (03/18/2012 7:59 AM CDT) Analysis Performed At [facility] Time Signature Tacrolimus, B 7.4 5.0-15.0 [facility] (Trough) LABORATORIES - NG/ML [facility] Tacrolimus . [facility] Blood Date of LABORATORIES - Last Dose [facility] Comment: Not Specified Tacrolimus Time of Last Dose . [facility] - [facility] Comment: Not Specified Tacrolimus Blood Dose, mg . MG [facility] LABORATORIES - [facility] Comment: Not Specified Specimen Anatomical Collection Method Collection Time Receive d Time (Source) Location / / Volume Laterality 03/18/2012 7:59 AM 2 7:59 CDT AM CDT Leonid Gonzalez M.D. LAB BLOOD NON ADD-ON Performing Organization Address City/[facility]/ZIP Code Phon e Number [facility] LABORATORIES - [address] [address] [facility] documented in this encounter Visit Diagnoses Not on filedocumented in this encounter
--- OUTSIDE RECORDS SUMMARY | 2022-04-13 12:47 | XMS_ITS | Encounter Summary ---
:1955 Author Organization [facility] Address [address] [place] [address] Care Team Providers Name Role Phone Unavailable Primary Care Provider Unavailable Encounter Details Date Type Department Care Team Description 03/09/2012 Hospital Encounter HX NO MAPPING Roshan Grace M.S .N., R.N., C.C.T.C. 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 [address] [place] [phone] 04/25/2022 Office Visit Otorhinolaryngology Dex Matta APRN, C.N.P., M.S.N. [address] [place] [phone] 05/08/2022 Appointment Laboratory Medicine Angélica Granger P.A.-C. [address] [place] [phone] 05/08/2022 Clinical Admitting/Central Communication Scheduling 05/10/2022 Appointment Radiology Jeremie Rose M.D. [address] [place] [phone] 05/10/2022 Comprehensive Visit Orthopedic Surgery Warner Graves M.D. [address] [place] [phone] 05/22/2022 Appointment Laboratory Medicine Angélica Granger P.A.-C. [address] [place] [phone] 06/05/2022 Appointment Laboratory Medicine Angélica Granger P.A.-C. [address] [place] [phone] 06/19/2022 Appointment Laboratory Medicine Angélica Granger P.A.-C. [address] [place] [phone] 07/03/2022 Appointment Laboratory Medicine Angélica Granger P.A.-C. [address] [place] [phone] 07/17/2022 Appointment Laboratory Medicine Angélica Granger P.A.-C. [address] [place] [phone] 07/31/2022 Appointment Laboratory Medicine Angélica Granger P.A.-C. [address] [place] [address] [phone] 08/14/2022 Appointment Laboratory Medicine Angélica Granger P.A.-C. [address] [place] [phone] 08/28/2022 Appointment Laboratory Medicine Angélica Granger P.A.-C. [address] [place] [phone] documented as of this encounter Visit Diagnoses Not on filedocumented in this encounter
--- OUTSIDE RECORDS SUMMARY | 2022-04-13 12:47 | XMS_ITS | Encounter Summary ---
:1955 Author Organization [facility] Address [address] [place] [address] Care Team Providers Name Role Phone Unavailable Primary Care Provider Unavailable Encounter Details Date Type Department Care Team Description 02/13/2012 Hospital Encounter HX NO MAPPING Vanessa Parra, APR N, C.N.P. 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 [address] [place] [phone] 04/25/2022 Office Visit Otorhinolaryngology Dex Matta APRN, C.N.P., M.S.N. [address] [place] [phone] 05/08/2022 Appointment Laboratory Medicine Angélica Granger P.A.-CDemetrius [address] [place] [phone] 05/08/2022 Clinical Admitting/Central Communication Scheduling 05/10/2022 Appointment Radiology Jeremie Rose M.D. [address] [place] [phone] 05/10/2022 Comprehensive Visit Orthopedic Surgery Warner Graves M.D. [address] [place] [phone] 05/22/2022 Appointment Laboratory Medicine Angélica Granger P.A.-CDemetrius [address] [place] [phone] 06/05/2022 Appointment Laboratory Medicine Angélica Granger P.A.-C. [address] [place] [address] [phone] 06/19/2022 Appointment Laboratory Medicine Angélica Granger P.A.-C. [address] [place] [phone] 07/03/2022 Appointment Laboratory Medicine Angélica Granger P.A.-C. [address] [place] [phone] 07/17/2022 Appointment Laboratory Medicine Angélica Granger P.A.-C. [address] [place] [phone] 07/31/2022 Appointment Laboratory Medicine Angélica Granger P.A.-C. [address] [place] [phone] 08/14/2022 Appointment Laboratory Medicine Angélica Granger P.A.-C. [address] [place] [phone] 08/28/2022 Appointment Laboratory Medicine Angélica Granger P.A.-C. [address] [place] [phone] documented as of this encounter Visit Diagnoses Not on filedocumented in this encounter
--- OUTSIDE RECORDS SUMMARY | 2022-04-13 12:47 | XMS_ITS | Encounter Summary ---
:1955 Author Organization [facility] Address [address] [place] [address] Care Team Providers Name Role Phone Unavailable Primary Care Provider Unavailable Encounter Details Date Type Department Care Team Description 03/16/2012 Hospital Encounter HX NO MAPPING Roshan Grace M.S .N., R.N., C.C.T.C. 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 [address] [place] [phone] 04/25/2022 Office Visit Otorhinolaryngology Dex Matta APRN, C.N.P., M.S.N. [address] [place] [phone] 05/08/2022 Appointment Laboratory Medicine Angélica Granger P.A.-C. [address] [place] [phone] 05/08/2022 Clinical Admitting/Central Communication Scheduling 05/10/2022 Appointment Radiology Jeremie Rose M.D. [address] [place] [phone] 05/10/2022 Comprehensive Visit Orthopedic Surgery Warner Graves M.D. [address] [place] [phone] 05/22/2022 Appointment Laboratory Medicine Angélica Granger P.A.-C. [address] [place] [phone] 06/05/2022 Appointment Laboratory Medicine Angélica Granger P.A.-C. [address] [place] [address] [phone] 06/19/2022 Appointment Laboratory Medicine Angélica Granger P.A.-C. [address] [place] [phone] 07/03/2022 Appointment Laboratory Medicine Angélica Granger P.A.-C. [address] [place] [phone] 07/17/2022 Appointment Laboratory Medicine Angélica Granger P.A.-C. [address] [place] [phone] 07/31/2022 Appointment Laboratory Medicine Angélica Granger P.A.-C. [address] [place] [address] [phone] 08/14/2022 Appointment Laboratory Medicine Angélica Granger P.A.-C. [address] [place] [address] [phone] 08/28/2022 Appointment Laboratory Medicine Angélica Granger P.A.-C. [address] [place] [phone] documented as of this encounter Visit Diagnoses Not on filedocumented in this encounter
--- OUTSIDE RECORDS SUMMARY | 2022-04-13 12:47 | XMS_ITS | Encounter Summary ---
:1955 Author Organization [facility] Address [address] [place] [address] Care Team Providers Name Role Phone Unavailable Primary Care Provider Unavailable Encounter Details Date Type Department Care Team Description 03/17/2012 Hospital Encounter HX NO MAPPING Roshan Grace M.S .N., R.N., C.C.T.C. 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 [address] [place] [phone] 04/25/2022 Office Visit Otorhinolaryngology Dex Matta APRN, C.N.P., M.S.N. [address] [place] [phone] 05/08/2022 Appointment Laboratory Medicine Angélica Granger P.A.-C. [address] [place] [phone] 05/08/2022 Clinical Admitting/Central Communication Scheduling 05/10/2022 Appointment Radiology Jeremie Rose M.D. [address] [place] [phone] 05/10/2022 Comprehensive Visit Orthopedic Surgery Warner Graves M.D. [address] [place] [phone] 05/22/2022 Appointment Laboratory Medicine Angélica Granger P.A.-C. [address] [place] [phone] 06/05/2022 Appointment Laboratory Medicine Angélica Granger P.A.-C. [address] [place] [address] [phone] 06/19/2022 Appointment Laboratory Medicine Angélica Granger P.A.-C. [address] [place] [phone] 07/03/2022 Appointment Laboratory Medicine Angélica Granger P.A.-C. [address] [place] [phone] 07/17/2022 Appointment Laboratory Medicine Angélica Granger P.A.-C. [address] [place] [phone] 07/31/2022 Appointment Laboratory Medicine Angélica Granger P.A.-C. [address] [place] [address] [phone] 08/14/2022 Appointment Laboratory Medicine Angélica Granger P.A.-C. [address] [place] [address] [phone] 08/28/2022 Appointment Laboratory Medicine Angélica Granger P.A.-C. [address] [place] [phone] documented as of this encounter Visit Diagnoses Not on filedocumented in this encounter
--- OUTSIDE RECORDS SUMMARY | 2022-04-13 12:48 | XMS_ITS | Encounter Summary ---
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 [address] [place] [phone] 04/25/2022 Office Visit Otorhinolaryngology Dex Matta APRN, C.N.P., M.S.N. [address] [place] [address] [phone] 05/08/2022 Appointment Laboratory Medicine Angélica Granger P.A.-C. [address] [place] [phone] 05/08/2022 Clinical Admitting/Central Communication Scheduling 05/10/2022 Appointment Radiology Jeremie Rose M.D. [address] [place] [phone] 05/10/2022 Comprehensive Visit Orthopedic Surgery Warner Graves M.D. [address] [place] [phone] 05/22/2022 Appointment Laboratory Medicine Angélica Granger P.A.-C. [address] [place] [phone] 06/05/2022 Appointment Laboratory Medicine Angélica Granger P.A.-C. [address] [place] [phone] 06/19/2022 Appointment Laboratory Medicine Angélica Granger P.A.-C. [address] [place] [phone] 07/03/2022 Appointment Laboratory Medicine Angélica Granger P.A.-C. [address] [place] [phone] 07/17/2022 Appointment Laboratory Medicine Angélica Granger P.A.-C. [address] [place] [phone] 07/31/2022 Appointment Laboratory Medicine Angélica Granger P.A.-C. [address] [place] [phone] 08/14/2022 Appointment Laboratory Medicine Angélica Granger P.A.-C. [address] [place] [address] [phone] 08/28/2022 Appointment Laboratory Medicine Angélica Granger P.A.-C. [address] [place] [phone] documented as of this encounter Visit Diagnoses Not on filedocumented in this encounter
--- OUTSIDE RECORDS SUMMARY | 2022-04-13 12:48 | XMS_ITS | Encounter Summary ---
:1955 Author Organization [facility] Address [address] [place] [address] Care Team Providers Name Role Phone Unavailable Primary Care Provider Unavailable Encounter Details Date Type Department Care Team Description 11/06/2011 - Hospital Encounter HX RST INFUSION Afshan Matute 11/13/2011 THERAPY M, R.N. 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 [address] [place] [phone] 04/25/2022 Office Visit Otorhinolaryngology Dex Matta APRN, C.N.P., M.S.N. [address] [place] [phone] 05/08/2022 Appointment Laboratory Medicine Angélica Granger P.A.-C. [address] [place] [phone] 05/08/2022 Clinical Admitting/Central Communication Scheduling 05/10/2022 Appointment Radiology Jeremie Rose M.D. [address] [place] [phone] 05/10/2022 Comprehensive Visit Orthopedic Surgery Warner Graves M.D. [address] [place] [phone] 05/22/2022 Appointment Laboratory Medicine Angélica Granger P.A.-C. [address] [place] [phone] 06/05/2022 Appointment Laboratory Medicine Angélica Granger P.A.-C. [address] [place] [phone] 06/19/2022 Appointment Laboratory Medicine Angélica Granger P.A.-C. [address] [place] [phone] 07/03/2022 Appointment Laboratory Medicine Angélica Granger P.A.-C. [address] [place] [phone] 07/17/2022 Appointment Laboratory Medicine Angélica Granger P.A.-C. [address] [place] [phone] 07/31/2022 Appointment Laboratory Medicine Angélica Granger P.A.-C. [address] [place] [phone] 08/14/2022 Appointment Laboratory Medicine Angélica Granger P.A.-C. [address] [place] [phone] 08/28/2022 Appointment Laboratory Medicine Angélica Granger P.A.-C. [address] [place] [phone] documented as of this encounter Visit Diagnoses Not on filedocumented in this encounter
--- OUTSIDE RECORDS SUMMARY | 2022-04-13 12:48 | XMS_ITS | Encounter Summary ---
:1955 Author Organization [facility] Address [address] [place] [address] Care Team Providers Name Role Phone Unavailable Primary Care Provider Unavailable Encounter Details Date Type Department Care Team Description 10/18/2011 - Hospital Encounter HX RST INFUSION GianlucaureLaverne 10/25/2011 THERAPY J, R.N. 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 [address] [place] [address] [phone] 05/08/2022 Appointment Laboratory Medicine Angélica Granger P.A.-CDemetrius [address] [place] [address] [phone] 05/08/2022 Clinical Admitting/Central Communication Scheduling 05/10/2022 Appointment Radiology Jeremie Rose M.D. [address] [place] [address] [phone] 05/10/2022 Comprehensive Visit Orthopedic Surgery Warner Graves M.D. [address] [place] [address] [phone] 05/22/2022 Appointment Laboratory Medicine Angélica Granger P.A.-CDemetrius [address] [place] [address] [phone] 06/05/2022 Appointment Laboratory Medicine Angélica Granger P.A.-C. [address] [place] [phone] 06/19/2022 Appointment Laboratory Medicine Angélica Granger P.A.-C. [address] [place] [phone] 07/03/2022 Appointment Laboratory Medicine Angélica Granger P.A.-C. [address] [place] [phone] 07/17/2022 Appointment Laboratory Medicine Angélica Granger P.A.-C. [address] [place] [phone] 07/31/2022 Appointment Laboratory Medicine Angélica Granger P.A.-C. [address] [place] [phone] 08/14/2022 Appointment Laboratory Medicine Angélica Granger P.A.-C. [address] [place] [phone] 08/28/2022 Appointment Laboratory Medicine Angélica Granger P.A.-C. [address] [place] [phone] documented as of this encounter Visit Diagnoses Not on filedocumented in this encounter
--- OUTSIDE RECORDS SUMMARY | 2022-04-13 12:48 | XMS_ITS | Encounter Summary ---
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 [address] [place] [phone] 04/25/2022 Office Visit Otorhinolaryngology Dex Matta APRN, C.N.P., M.S.N. [address] [place] [phone] 05/08/2022 Appointment Laboratory Medicine Angélica Granger P.A.-C. [address] [place] [phone] 05/08/2022 Clinical Admitting/Central Communication Scheduling 05/10/2022 Appointment Radiology Jeremie Rose M.D. [address] [place] [phone] 05/10/2022 Comprehensive Visit Orthopedic Surgery Warner Graves M.D. [address] [place] [phone] 05/22/2022 Appointment Laboratory Medicine Angélica Granger P.A.-C. [address] [place] [phone] 06/05/2022 Appointment Laboratory Medicine Angélica Granger P.A.-C. [address] [place] [phone] 06/19/2022 Appointment Laboratory Medicine Angélica Granger P.A.-C. [address] [place] [phone] 07/03/2022 Appointment Laboratory Medicine Angélica Granger P.A.-C. [address] [place] [phone] 07/17/2022 Appointment Laboratory Medicine Angélica Granger P.A.-C. [address] [place] [phone] 07/31/2022 Appointment Laboratory Medicine Angélica Granger P.A.-C. [address] [place] [phone] 08/14/2022 Appointment Laboratory Medicine Angélica Granger P.A.-C. [address] [place] [address] [phone] 08/28/2022 Appointment Laboratory Medicine Angélica Granger P.A.-C. [address] [place] [phone] documented as of this encounter Visit Diagnoses Not on filedocumented in this encounter
--- OUTSIDE RECORDS SUMMARY | 2022-04-13 12:48 | XMS_ITS | Encounter Summary ---
:1955 Author Organization [facility] Address [address] [place] [address] Care Team Providers Name Role Phone Unavailable Primary Care Provider Unavailable Encounter Details Date Type Department Care Team Description 01/06/2012 Hospital Encounter HX NO MAPPING Roshan Grace M.S .N., R.N., C.C.T.C. 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 [address] [place] [phone] 04/25/2022 Office Visit Otorhinolaryngology Dex Matta APRN, C.N.P., M.S.N. [address] [place] [phone] 05/08/2022 Appointment Laboratory Medicine Angélica Granger P.A.-C. [address] [place] [phone] 05/08/2022 Clinical Admitting/Central Communication Scheduling 05/10/2022 Appointment Radiology Jeremie Rose M.D. [address] [place] [phone] 05/10/2022 Comprehensive Visit Orthopedic Surgery Warner Graves M.D. [address] [place] [phone] 05/22/2022 Appointment Laboratory Medicine Angélica Granger P.A.-C. [address] [place] [phone] 06/05/2022 Appointment Laboratory Medicine Angélica Granger P.A.-C. [address] [place] [address] [phone] 06/19/2022 Appointment Laboratory Medicine Angélica Granger P.A.-C. [address] [place] [phone] 07/03/2022 Appointment Laboratory Medicine Angélica Granger P.A.-C. [address] [place] [phone] 07/17/2022 Appointment Laboratory Medicine Angélica Granger P.A.-C. [address] [place] [phone] 07/31/2022 Appointment Laboratory Medicine Angélica Granger P.A.-C. [address] [place] [address] [phone] 08/14/2022 Appointment Laboratory Medicine Angélica Granger P.A.-C. [address] [place] [address] [phone] 08/28/2022 Appointment Laboratory Medicine Angélica Granger P.A.-C. [address] [place] [phone] documented as of this encounter Visit Diagnoses Not on filedocumented in this encounter
--- OUTSIDE RECORDS SUMMARY | 2022-04-13 12:48 | XMS_ITS | Encounter Summary ---
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 Pulse 59 10/03/2011 5:15 AM Value from Ch artplus. CDT Temperature - - Respiratory Rate 16 10/03/2011 5:13 AM Value from C hartplus. CDT Oxygen Saturation - - Inhaled Oxygen - - Concentration Weight 84.5 kg (186 lb 4.6 10/03/2011 5:15 AM oz) CDT Height 178 cm (5' 10.08) 09/30/2011 8:38 AM Vital s ign result CDT from CD. Body Mass Index 26.67 09/30/2011 8:38 AM CDT documented in this encounter Plan of Treatment Upcoming Encounters Date Type Specialty Care Team Description 04/24/2022 Appointment Laboratory Medicine Angélica Granger, P.A.-CDemetrius [address] [place] [phone] 04/25/2022 Office Visit Otorhinolaryngology Dex Matta APRN, C.N.P., M.S.N. [address] [place] [phone] 05/08/2022 Appointment Laboratory Medicine Angélica Granger P.A.-CDemetrius [address] [place] [phone] 05/08/2022 Clinical Admitting/Central Communication Scheduling 05/10/2022 Appointment Radiology Jeremie Rose M.D. [address] [place] [phone] 05/10/2022 Comprehensive Visit Orthopedic Surgery Warner Graves M.D. [address] [place] [phone] 05/22/2022 Appointment Laboratory Medicine Angélica Granger P.A.-C. [address] [place] [phone] 06/05/2022 Appointment Laboratory Medicine Angélica Granger P.A.-C. [address] [place] [address] [phone] 06/19/2022 Appointment Laboratory Medicine Angélica Granger P.A.-C. [address] [place] [address] [phone] 07/03/2022 Appointment Laboratory Medicine Angélica Granger P.A.-C. [address] [place] [address] [phone] 07/17/2022 Appointment Laboratory Medicine Angélica Granger P.A.-C. [address] [place] [address] [phone] 07/31/2022 Appointment Laboratory Medicine Angélica Granger P.A.-C. [address] [place] [address] [phone] 08/14/2022 Appointment Laboratory Medicine Angélica Granger P.A.-C. [address] [place] [address] [phone] 08/28/2022 Appointment Laboratory Medicine Angélica Granger P.A.-C. [address] [place] [phone] documented as of this encounter Procedures Procedure Name Priority Date/Time Associated Comments Diagnosis DX CHEST POST PICC Routine 10/03/2011 11:34 Resul ts for this PLACEMENT 1 VIEW AM CDT procedure a re in the results section. ELECTROLYTE (CHEM 4) Routine 10/03/2011 5:10 Resu lts for this PANEL, S/P AM CDT procedure are i n the results section. TACROLIMUS LEVEL, B Routine 10/03/2011 5:10 Resul ts for this AM CDT procedure are i n the results section. CBC WITH DIFFERENTIAL, B Routine 10/03/2011 5:10 Results for this AM CDT procedure are i n the results section. ELECTROLYTE (CHEM 4) Routine 10/02/2011 5:18 Resu lts for this PANEL, S/P AM CDT procedure are i n the results section. CBC NO CALL BACK, REFLEX Routine 10/02/2011 5:18 Results for this T/S AM CDT procedure are i n the results section. PROTHROMBIN TIME (PT), P Routine 10/02/2011 5:18 Results for this AM CDT procedure are i n the results section. BILIRUBIN, S Routine 10/02/2011 5:18 Results for this AM CDT procedure are i n the results section. ALANINE AMINOTRANSFERASE Routine 10/02/2011 5:18 Results for this (ALT), S/P AM CDT procedure are i n the results section. ASPARTATE Routine 10/02/2011 5:18 Results for this AMINOTRANSFERASE (AST), AM CDT proc edure are in S/P the results section. ALKALINE PHOSPHATASE, Routine 10/02/2011 5:18 Res ults for this S/P AM CDT procedure are i n the results section. MAGNESIUM, S Routine 10/02/2011 5:18 Results for this AM CDT procedure are i n the results section. CALCIUM, TOT, S/P Routine 10/02/2011 5:18 Results for this AM CDT procedure are i n the results section. ALBUMIN, S/P Routine 10/02/2011 5:18 Results for this AM CDT procedure are i n the results section. HX MICROBIOLOGY REPORTS Routine 10/01/2011 12:24 Results for this PM CDT procedure are i n the results section. HX MICROBIOLOGY REPORTS Routine 10/01/2011 12:16 Results for this PM CDT procedure are i n the results section. ELECTROLYTE (CHEM 4) Routine 10/01/2011 5:18 Resu lts for this PANEL, S/P AM CDT procedure are i n the results section. CBC NO CALL BACK, REFLEX Routine 10/01/2011 5:18 Results for this T/S AM CDT procedure are i n the results section. TACROLIMUS LEVEL, B Routine 10/01/2011 5:18 Resul ts for this AM CDT procedure are i n the results section. PROTHROMBIN TIME (PT), P Routine 10/01/2011 5:18 Results for this AM CDT procedure are i n the results section. BILIRUBIN, S Routine 10/01/2011 5:18 Results for this AM CDT procedure are i n the results section. ALANINE AMINOTRANSFERASE Routine 10/01/2011 5:18 Results for this (ALT), S/P AM CDT procedure are i n the results section. ASPARTATE Routine 10/01/2011 5:18 Results for this AMINOTRANSFERASE (AST), AM CDT proc edure are in S/P the results section. ALKALINE PHOSPHATASE, Routine 10/01/2011 5:18 Res ults for this S/P AM CDT procedure are i n the results section. MAGNESIUM, S Routine 10/01/2011 5:18 Results for this AM CDT procedure are i n the results section. CALCIUM, TOT, S/P Routine 10/01/2011 5:18 Results for this AM CDT procedure are i n the results section. ALBUMIN, S/P Routine 10/01/2011 5:18 Results for this AM CDT procedure are i n the results section. V&IRAD VASCULAR & Routine 09/30/2011 9:55 Results for this INTERVENTION AM CDT procedure are i n the results section. ELECTROLYTE (CHEM 4) Routine 09/30/2011 5:14 Resu lts for this PANEL, S/P AM CDT procedure are i n the results section. CBC NO CALL BACK, REFLEX Routine 09/30/2011 5:14 Results for this T/S AM CDT procedure are i n the results section. TACROLIMUS LEVEL, B Routine 09/30/2011 5:14 Resul ts for this AM CDT procedure are i n the results section. PROTHROMBIN TIME (PT), P Routine 09/30/2011 5:14 Results for this AM CDT procedure are i n the results section. BILIRUBIN, S Routine 09/30/2011 5:14 Results for this AM CDT procedure are i n the results section. ALANINE AMINOTRANSFERASE Routine 09/30/2011 5:14 Results for this (ALT), S/P AM CDT procedure are i n the results section. ASPARTATE Routine 09/30/2011 5:14 Results for this AMINOTRANSFERASE (AST), AM CDT proc edure are in S/P the results section. ALKALINE PHOSPHATASE, Routine 09/30/2011 5:14 Res ults for this S/P AM CDT procedure are i n the results section. MAGNESIUM, S Routine 09/30/2011 5:14 Results for this AM CDT procedure are i n the results section. CALCIUM, TOT, S/P Routine 09/30/2011 5:14 Results for this AM CDT procedure are i n the results section. ALBUMIN, S/P Routine 09/30/2011 5:14 Results for this AM CDT procedure are i n the results section. US LIVER DRAIN PLACEMENT Routine 09/29/2011 1:34 Results for this PM CDT procedure are i n the results section. HX MICROBIOLOGY REPORTS Routine 09/29/2011 12:51 Results for this PM CDT procedure are i n the results section. ELECTROLYTE (CHEM 4) Routine 09/29/2011 5:13 Resu lts for this PANEL, S/P AM CDT procedure are i n the results section. CBC NO CALL BACK, REFLEX Routine 09/29/2011 5:13 Results for this T/S AM CDT procedure are i n the results section. TACROLIMUS LEVEL, B Routine 09/29/2011 5:13 Resul ts for this AM CDT procedure are i n the results section. PROTHROMBIN TIME (PT), P Routine 09/29/2011 5:13 Results for this AM CDT procedure are i n the results section. BILIRUBIN, S Routine 09/29/2011 5:13 Results for this AM CDT procedure are i n the results section. ALANINE AMINOTRANSFERASE Routine 09/29/2011 5:13 Results for this (ALT), S/P AM CDT procedure are i n the results section. ASPARTATE Routine 09/29/2011 5:13 Results for this AMINOTRANSFERASE (AST), AM CDT proc edure are in S/P the results section. ALKALINE PHOSPHATASE, Routine 09/29/2011 5:13 Res ults for this S/P AM CDT procedure are i n the results section. MAGNESIUM, S Routine 09/29/2011 5:13 Results for this AM CDT procedure are i n the results section. CALCIUM, TOT, S/P Routine 09/29/2011 5:13 Results for this AM CDT procedure are i n the results section. ALBUMIN, S/P Routine 09/29/2011 5:13 Results for this AM CDT procedure are i n the results section. MICROSCOPIC MANUAL Routine 09/28/2011 8:13 Result s for this PM CDT procedure are i n the results section. GRAM'S ST, U Routine 09/28/2011 8:13 Results for this PM CDT procedure are i n the results section. URINALYSIS WITH Routine 09/28/2011 8:13 Results f or this MICROSCOPIC PM CDT procedure are i n the results section. HX MICROBIOLOGY REPORTS Routine 09/28/2011 6:35 R esults for this PM CDT procedure are i n the results section. PROTHROMBIN TIME (PT), P Routine 09/28/2011 6:34 Results for this PM CDT procedure are i n the results section. HX MICROBIOLOGY REPORTS Routine 09/28/2011 6:31 R esults for this PM CDT procedure are i n the results section. ELECTROLYTE (CHEM 4) Routine 09/28/2011 6:31 Resu lts for this PANEL, S/P PM CDT procedure are i n the results section. CBC WITH DIFFERENTIAL, B Routine 09/28/2011 6:31 Results for this PM CDT procedure are i n the results section. BILIRUBIN, S Routine 09/28/2011 6:31 Results for this PM CDT procedure are i n the results section. ALANINE AMINOTRANSFERASE Routine 09/28/2011 6:31 Results for this (ALT), S/P PM CDT procedure are i n the results section. ASPARTATE Routine 09/28/2011 6:31 Results for this AMINOTRANSFERASE (AST), PM CDT proc edure are in S/P the results section. ALKALINE PHOSPHATASE, Routine 09/28/2011 6:31 Res ults for this S/P PM CDT procedure are i n the results section. MAGNESIUM, S Routine 09/28/2011 6:31 Results for this PM CDT procedure are i n the results section. documented in this encounter Results DX Chest Post PICC Placement 1 View (10/03/2011 11:34 AM CDT) Anatomical Region Laterality Modality Chest N/A Radiographic Imaging Specimen (Source) Anatomical Collection Method Collection Time Re ceived Time Location / / Volume Laterality 10/03/2011 11:34 AM CDT Narrative 10/03/2011 11:40 AM CDT 03-Oct-2011 11:34:00 ??Exam: Chest-PICC Indications: picc placement ORIGINAL REPORT - 03-Oct-2011 11:40:00 Chest; 1 view: Right PICC line with tip in the lower SV C. Electronically signed by: ?? Jaxson Lion MD [id number] 2 11:40 Procedure Note Jaxson Lion M.D. - 09/20/2017Fo rmatting of this note might be different from the original. 03-Oct-2011 11:34:00 Exam: Chest-PICC Indications: picc placement ORIGINAL REPORT - 03-Oct-2011 11:40:00 Chest; 1 view: Right PICC line with tip in the lower SV C. Electronically signed by: Jaxson Lion MD [id number] 11:40 Anatoliy Bernardo M.D. IMG DIAGNOSTIC IMAGING PROCE DURES (ABNORMAL) CBC with Differential (10/03/2011 5:10 AM CDT) [facility] gist Method Time Signature Erythrocytes 3.64 (L) 4.32 - [facility] 5.72 LABORATORIES - X10(12)/L [facility] MCV 88.2 81.2 - [facility] 95.1 FL [facility] RBC Distrib 12.5 11.8 - [facility] Width 15.6 % [facility] Platelet Count 403 150 - 450 [facility] X10(9)/L [facility] Leukocytes 14.0 (H) 3.5 - [facility] 10.5 LABORATORIES - X10(9)/L [facility] Neutrophils 7.42 (H) 1.70 - [facility] 7.00 LABORATORIES - X10(9)/L [facility] Comment: Rechecked Hemoglobin 10.4 (L) 13.5 - 17.5 G/DL [facility] Hematocrit 32.1 (L) 38.8 - 50.0 % [facility] LAB ORATORIES [facility] Lymphocytes 5.05 (H) 0.90 - 2.90 X10(9)/L [facility] Monocytes 0.96 (H) 0.30 - 0.90 X10(9)/L [facility] Eosinophils 0.50 0.05 - 0.50 X10(9)/L [facility]ATORIES - [facility] Basophils 0.06 0.00 - 0.30 X10(9)/L [facility] LABORATORIES - [facility] Specimen Anatomical Collection Method Collection Time Receive d Time (Source) Location / / Volume Laterality 10/03/2011 5:10 AM 2 5:10 CDT AM CDT Krystle Whitney R.N. LAB BLOOD ADD-ON Performing Organization Address City/[facility] Code Phon e Number [facility] LABORATORIES - [address] [place], [place] [address] [facility] (ABNORMAL) Electrolyte (Chem 4) Panel (10/03/2011 5:10 AM CDT) [facility] Method Time Signature Sodium, S 136 135 - 145 [facility] MMOL/L LABORATORIES - [facility] Potassium, S 4.5 3.6 - 5.2 [facility] MMOL/L LABORATORIES - [facility] eGFR-Black/Afri >60 >60 [facility] can Lao ML/MIN/BSA LABORATORIES - [facility] BUN (Blood Urea 30 (H) 8 - 24 [facility] Nitrogen), S MG/DL LABORATORIES - [facility] Chloride, S 102 100 - 108 [facility] MMOL/L LABORATORIES - [facility] HX Bicarbonate, 22 22 - 29 [facility] P/S MMOL/L LABORATORIES - [facility] Creatinine 1.2 0.8 - 1.3 [facility] MG/DL LABORATORIES - [facility] eGFR >60 >60 [facility] Non-Black/Afric ML/MIN/BSA LABORATORIES - an Lao [facility] Anion Gap 12 7 - 15 [facility] LABORATORIES - [facility] Glucose, S 109 70 - 140 [facility] MG/DL LABORATORIES - [facility] Specimen Anatomical Collection Method Collection Time Receive d Time (Source) Location / / Volume Laterality 10/03/2011 5:10 AM 2 5:10 CDT AM CDT Krystle Whitney R.N. LAB BLOOD ADD-ON Performing Organization Address City/[facility] Code Phon e Number [facility] LABORATORIES - [address] [place], [place] [address] [facility] Tacrolimus Level (10/03/2011 5:10 AM CDT) Analysis Performed At Patho logist Time Signature Tacrolimus, B 5.1 5.0-15.0 [facility] (Trough) LABORATORIES - NG/ML [facility] Tacrolimus . [facility] Blood Date of LABORATORIES - Last Dose [facility] Comment: Not Specified Tacrolimus Time of Last Dose . M [facility] LABORATORIES - [facility] Comment: Not Specified Tacrolimus Blood Dose, mg . [facility] LABORATORIES - [facility] Comment: Not Specified Specimen Anatomical Collection Method Collection Time Receive d Time (Source) Location / / Volume Laterality 10/03/2011 5:10 AM 2 5:10 CDT AM CDT Krystle Whitney R.N. LAB BLOOD NON ADD-ON Performing Organization Address City/[facility]/ZIP Code Phon e Number [facility] LABORATORIES - [address] [place] [phone] [facility] (ABNORMAL) Albumin (10/02/2011 5:18 AM CDT) P athologist Signature Albumin, S 3.2 (L) 3.5 - 5.0 [facility] G/DL LABORATORIES - [facility] Specimen Anatomical Collection Method Collection Time Receive d Time (Source) Location / / Volume Laterality 10/02/2011 5:18 AM 2 5:18 CDT AM CDT Van Barron M.D. LAB BLOOD ADD-ON Performing Organization Address City/[facility]/ZIP Code Phon e Number [facility] LABORATORIES - [address] [place] [phone] [facility] (ABNORMAL) Alkaline Phosphatase (10/02/2011 5:18 AM CDT) Patholo gist Method Time Signature Alkaline 310 (H) 45 - 115 [facility] Phosphatase, S U/L LABORATORIES [facility] Specimen Anatomical Collection Method Collection Time Receive d Time (Source) Location / / Volume Laterality 10/02/2011 5:18 AM 2 5:18 CDT AM CDT Van Barron M.D. LAB BLOOD ADD-ON Performing Organization Address City/[facility]/ZIP Code Phon e Number [facility] LABORATORIES - [address] [place] [phone] [facility] AST (Aspartate Aminotransferase) (10/02/2011 5:18 AM CDT) P athologist Signature AST, Total, S 22 8 - 48 U/L [facility] Specimen Anatomical Collection Method Collection Time Receive d Time (Source) Location / / Volume Laterality 10/02/2011 5:18 AM 2 5:18 CDT AM CDT Van Barron M.D. LAB BLOOD ADD-ON Performing Organization Address City/[facility]/ZIP Code Phon e Number [facility] - [address] [place] [phone] 05 [facility] Calcium, Total (10/02/2011 5:18 AM CDT) athologist Signature Calcium, 9.1 8.9 - 10.1 [facility] Total, S MG/DL [facility] Specimen Anatomical Collection Method Collection Time Receive d Time (Source) Location / / Volume Laterality 10/02/2011 5:18 AM 2 5:18 CDT AM CDT Van Barron M.D. LAB BLOOD ADD-ON Performing Organization Address City/State/ZIP Code Phon e Number [facility] [address] [place] [phone] 05 [facility] PT (Prothrombin Time) with INR (10/02/2011 5:18 AM CDT) Patholo gist Method Time Signature Prothrombin 11.7 9.5 - 13.8 [facility] Time, P SEC [facility] - [facility] INR 0.9 0.8 - 1.2 [facility] Specimen Anatomical Collection Method Collection Time Receive d Time (Source) Location / / Volume Laterality 10/02/2011 5:18 AM 2 5:18 CDT AM CDT Van Barrno M.D. LAB BLOOD ADD-ON Performing Organization Address City/[facility]/ZIP Code Phon e Number [place] [phone] [facility] Bilirubin (10/02/2011 5:18 AM CDT) P athologist Signature Bilirubin, 0.3 0.1 - 1.0 [facility] Total, S MG/DL [facility] Bilirubin, 0.2 0.0 - 0.3 [facility] Direct, S MG/DL LABORATORIES - [facility] Specimen Anatomical Collection Method Collection Time Receive d Time (Source) Location / / Volume Laterality 10/02/2011 5:18 AM 2 5:18 CDT AM CDT Van Barron M.D. LAB BLOOD ADD-ON Performing Organization Address City/[facility] Phon e Number [facility] LABORATORIES - [address] [place] [phone] 05 [facility] Magnesium (10/02/2011 5:18 AM CDT) P athologist Signature Magnesium, S 2.0 1.7 - 2.3 [facility] MG/DL LABORATORIES - [facility] Specimen Anatomical Collection Method Collection Time Receive d Time (Source) Location / / Volume Laterality 10/02/2011 5:18 AM 2 5:18 CDT AM CDT Van Barron M.D. LAB BLOOD ADD-ON Performing Organization Address City/State/[facility] Code Phon e Number [facility] LABORATORIES - [address] [place] [phone] [facility] (ABNORMAL) CBC with Differential - No Alerts (10/02/2011 5:18 AM CDT) Patholo gist Method Time Signature Erythrocytes 3.35 (L) 4.32 - [facility] 5.72 LABORATORIES - X10(12)/L [facility] MCV 89.6 81.2 - [facility] 95.1 FL LABORATORIES - [facility] Leukocytes 9.4 3.5 - [facility] 10.5 LABORATORIES - X10(9)/L [facility] Neutrophils 4.64 1.70 - [facility] 7.00 LABORATORIES - X10(9)/L [facility] Lymphocytes 3.64 (H) 0.90 - [facility] 2.90 LABORATORIES - X10(9)/L [facility] Monocytes 0.73 0.30 - [facility] 0.90 LABORATORIES - X10(9)/L [facility] Hemoglobin 9.5 (L) 13.5 - [facility] 17.5 G/DL LABORATORIES - [facility] Hematocrit 30.0 (L) 38.8 - [facility] 50.0 % LABORATORIES - [facility] RBC Distrib 12.5 11.8 - [facility] Width 15.6 % LABORATORIES - [facility] Platelet Count 339 150 - 450 [facility] X10(9)/L LABORATORIES - [facility] Eosinophils 0.36 0.05 - [facility] 0.50 LABORATORIES - X10(9)/L [facility] Basophils 0.04 0.00 - [facility] 0.30 LABORATORIES - X10(9)/L [facility] Specimen Anatomical Collection Method Collection Time Receive d Time (Source) Location / / Volume Laterality 10/02/2011 5:18 AM 2 5:18 CDT AM CDT Van Barron M.D. LAB BLOOD NON ADD-ON Performing Organization Address City/[facility]/ZIP Code Phon e Number [facility] LABORATORIES - [address] [place] [phone] [facility] (ABNORMAL) ALT (Alanine Aminotransferase) (10/02/2011 5:18 AM CDT) [facility] [employer] Method Time Signature Alanine 67 (H) 7 - 55 [facility] Aminotransferase U/L LABORATORIES - (ALT), S [facility] Specimen Anatomical Collection Method Collection Time Receive d Time (Source) Location / / Volume Laterality 10/02/2011 5:18 AM 2 5:18 CDT AM CDT Van Barron M.D. LAB BLOOD ADD-ON Performing Organization Address City/State/ZIP Code Phon e Number [facility] LABORATORIES - [address] [place] [phone] [facility] (ABNORMAL) Electrolyte (Chem 4) Panel (10/02/2011 5:18 AM CDT) [facility] [employer] Method Time Signature Chloride, S 104 100 - 108 [facility] MMOL/L LABORATORIES [facility] HX Bicarbonate, 24 22 - 29 [facility] P/S MMOL/L LABORATORIES [facility] eGFR-Black/Afri >60 >60 [facility] can Lao ML/MIN/BSA LABORATORIES [facility] BUN (Blood Urea 25 (H) 8 - 24 [facility] Nitrogen), S MG/DL LABORATORIES [facility] Sodium, S 138 135 - 145 [facility] MMOL/L LABORATORIES [facility] Potassium, S 4.3 3.6 - 5.2 [facility] MMOL/L [facility] Creatinine 1.2 0.8 - 1.3 [facility] MG/DL [facility] eGFR >60 >60 [facility] Non-Black/Afric ML/MIN/BSA LABORATORIES - an Lao [facility] Anion Gap 10 7 - 15 [facility] Glucose, S 131 70 - 140 [facility] MG/DL [facility] Specimen Anatomical Collection Method Collection Time Receive d Time (Source) Location / / Volume Laterality 10/02/2011 5:18 AM 2 5:18 CDT AM CDT Van Barron M.D. LAB BLOOD ADD-ON Performing Organization Address City/State/ZIP Code Phon e Number [facility] - [address] [place], [place] [address] [facility] Microbiology Reports (10/01/2011 12:24 PM CDT) Specimen Anatomical Collection Method Collection Time Receive d Time (Source) Location / / Volume Laterality 10/01/2011 12:24 10/01/2011 PM CDT 12:24 PM CDT Narrative [facility] - [facility] - 10/06/2011 6:30 PM CDT 01-OCT-2011 BLOOD, ? SoftOrd# [id number] ?(Specimen Collected 12:24; Received 01-OCT-2011 13:46) ? Dept Lab Med Path ?BACTERIA/MARRY CULTURE, BLOOD ? (Reported 06-OCT-2011 18:30) FINAL ?No growth after 5 days of in cubation. Procedure Note 10/01/2017 01-OCT-2011 BLOOD, SoftOrd# [id number] (Specimen Collected 01-OCT-2011 12:24; Received 01-OCT-2011 13:46) Dept Lab Med Path BACTERIA/MARRY CULTURE, BLOOD (Repor onel 06-OCT-2011 18:30) FINAL No growth after 5 days of incubation. May Ballesteros P.A.-C. LAB MICROBIOLOGY - GENERAL O RDERABLES Performing Organization Address City/State/ZIP Code Phon e Number [facility] - [address], [place] [address] [facility] Microbiology Reports (10/01/2011 12:16 PM CDT) Specimen Anatomical Collection Method Collection Time Receive d Time (Source) Location / / Volume Laterality 10/01/2011 12:16 10/01/2011 PM CDT 12:16 PM CDT Narrative [facility] - [facility] - 10/06/2011 6:30 PM CDT 01-OCT-2011 BLOOD, ? SoftOrd# [id number] ?(Specimen Collected 12:16; Received 01-OCT-2011 13:45) ? Dept Lab Med Path ?BACTERIA/MARRY CULTURE, BLOOD ? (Reported 06-OCT-2011 18:30) FINAL ?No growth after 5 days of in cubation. Procedure Note 10/01/2017 01-OCT-2011 BLOOD, SoftOrd# [id number] (Specimen Collected 01-OCT-2011 12:16; Received 01-OCT-2011 13:45) Dept Lab Med Path BACTERIA/MARRY CULTURE, BLOOD (Repor onel 06-OCT-2011 18:30) FINAL No growth after 5 days of incubation. May Ballesteros P.A.-C. LAB MICROBIOLOGY - GENERAL O RDERABLES Performing Organization Address City/[facility]/ZIP Code Phon e Number [facility] LABORATORIES - [address] [phone] [facility] PT (Prothrombin Time) with INR (10/01/2011 5:18 AM CDT) [facility] Method Time Signature Prothrombin 12.9 9.5 - 13.8 [facility] Time, P SEC LABORATORIES [facility] INR 1.1 0.8 - 1.2 [facility] Specimen Anatomical Collection Method Collection Time Receive d Time (Source) Location / / Volume Laterality 10/01/2011 5:18 AM 2 5:18 CDT AM CDT Van Barron M.D. LAB BLOOD ADD-ON Performing Organization Address City/[facility]/ZIP Code Phon e Number [facility]IES - [address] [phone] [facility] AST (Aspartate Aminotransferase) (10/01/2011 5:18 AM CDT) P athologist Signature AST, Total, S 25 8 - 48 U/L [facility] Specimen Anatomical Collection Method Collection Time Receive d Time (Source) Location / / Volume Laterality 10/01/2011 5:18 AM 2 5:18 CDT AM CDT Van Barron M.D. LAB BLOOD ADD-ON Performing Organization Address City/[facility] Code Phon e Number [facility]IES - [address] [phone] [facility] (ABNORMAL) ALT (Alanine Aminotransferase) (10/01/2011 5:18 AM CDT) [facility] Method Time Signature Alanine 77 (H) 7 - 55 [facility] Aminotransferase U/L LABORATORIES - (ALT), S [facility] Specimen Anatomical Collection Method Collection Time Receive d Time (Source) Location / / Volume Laterality 10/01/2011 5:18 AM 2 5:18 CDT AM CDT Van Barron M.D. LAB BLOOD ADD-ON Performing Organization Address City/[facility]/ZIP Code Phon e Number [facility] - [address] [place], [place] [address] [facility] (ABNORMAL) Albumin (10/01/2011 5:18 AM CDT) P athologist Signature Albumin, S 3.1 (L) 3.5 - 5.0 [facility] G/DL LABORATORIES - [facility] Specimen Anatomical Collection Method Collection Time Receive d Time (Source) Location / / Volume Laterality 10/01/2011 5:18 AM 2 5:18 CDT AM CDT Van Barron M.D. LAB BLOOD ADD-ON Performing Organization Address City/[facility] Code Phon e Number [facility]IES - [address] [phone] [facility] Tacrolimus Level (10/01/2011 5:18 AM CDT) Analysis Performed At Patho logist Time Signature Tacrolimus, B 8.3 5.0-15.0 [facility] (Trough) LABORATORIES - NG/ML [facility] Tacrolimus . [facility] Blood Date of LABORATORIES - Last Dose [facility] Comment: Not Specified Tacrolimus Time of Last Dose . M [facility] LABORATORIES - [facility] Comment: Not Specified Tacrolimus Blood Dose, mg . [facility] LABORATORIES - [facility] Comment: Not Specified Specimen Anatomical Collection Method Collection Time Receive d Time (Source) Location / / Volume Laterality 10/01/2011 5:18 AM 2 5:18 CDT AM CDT Van Barron M.D. LAB BLOOD NON ADD-ON Performing Organization Address City/State/ZIP Code Phon e Number [facility]IES - [address] [place], [place] [address] [facility] (ABNORMAL) Calcium, Total (10/01/2011 5:18 AM CDT) Patholo gist Method Time Signature Calcium, 8.8 (L) 8.9 - 10.1 [facility] Total, S MG/DL LABORATORIES - [facility] Specimen Anatomical Collection Method Collection Time Receive d Time (Source) Location / / Volume Laterality 10/01/2011 5:18 AM 2 5:18 CDT AM CDT Van Barron M.D. LAB BLOOD ADD-ON Performing Organization Address City/State/ZIP Code Phon e Number [facility]IES - [address] [phone] [facility] (ABNORMAL) CBC with Differential - No Alerts (10/01/2011 5:18 AM CDT) [facility] Method Time Signature Hemoglobin 9.1 (L) 13.5 - [facility] 17.5 G/DL LABORATORIES - [facility] Hematocrit 28.2 (L) 38.8 - [facility] 50.0 % LABORATORIES - [facility] RBC Distrib 12.5 11.8 - [facility] Width 15.6 % LABORATORIES - [facility] Platelet Count 285 150 - 450 [facility] X10(9)/L LABORATORIES - [facility] Lymphocytes 2.78 0.90 - [facility] 2.90 LABORATORIES - X10(9)/L [facility] Monocytes 0.88 0.30 - [facility] 0.90 LABORATORIES - X10(9)/L [facility] Erythrocytes 3.15 (L) 4.32 - [facility] 5.72 LABORATORIES - X10(12)/L [facility] MCV 89.5 81.2 - [facility] 95.1 FL LABORATORIES - [facility] Leukocytes 8.4 3.5 - [facility] 10.5 LABORATORIES - X10(9)/L [facility] Neutrophils 4.48 1.70 - [facility] 7.00 LABORATORIES - X10(9)/L [facility] Eosinophils 0.27 0.05 - [facility] 0.50 LABORATORIES - X10(9)/L [facility] Basophils 0.02 0.00 - [facility] 0.30 LABORATORIES - X10(9)/L [facility] Specimen Anatomical Collection Method Collection Time Receive d Time (Source) Location / / Volume Laterality 10/01/2011 5:18 AM 2 5:18 CDT AM CDT Van Barron M.D. LAB BLOOD NON ADD-ON Performing Organization Address City/State/ZIP Code Phon e Number [facility] LAB[facility]ATORIES - [address], [place] [address] [facility] (ABNORMAL) Electrolyte (Chem 4) Panel (10/01/2011 5:18 AM CDT) Patholo gist Method Time Signature Sodium, S 135 135 - 145 [facility] MMOL/L LABORATORIES - [facility] Potassium, S 4.2 3.6 - 5.2 [facility] MMOL/L LABORATORIES - [facility] Chloride, S 101 100 - 108 [facility] MMOL/L LABORATORIES - [facility] HX Bicarbonate, 24 22 - 29 [facility] P/S MMOL/L LABORATORIES - [facility] Creatinine 1.3 0.8 - 1.3 [facility] MG/DL LABORATORIES - [facility] eGFR 57 (L) >60 [facility] Non-Black/Afric ML/MIN/BS LABORATORIES - an Lao A [facility] eGFR-Black/Afri >60 >60 [facility] can Lao ML/MIN/BS LABORATORIES - [facility] BUN (Blood Urea 21 8 - 24 [facility] Nitrogen), S MG/DL LABORATORIES - [facility] Anion Gap 10 7 - 15 [facility] LABORATORIES - [facility] Glucose, S 172 (H) 70 - 140 [facility] MG/DL LABORATORIES - [facility] Specimen Anatomical Collection Method Collection Time Receive d Time (Source) Location / / Volume Laterality 10/01/2011 5:18 AM 2 5:18 CDT AM CDT Van Barron M.D. LAB BLOOD ADD-ON Performing Organization Address City/[facility] Code Phon e Number [facility] LABORATORIES - [address] [phone] [facility] Magnesium (10/01/2011 5:18 AM CDT) athologist Signature Magnesium, S 2.0 1.7 - 2.3 [facility] MG/DL LABORATORIES - [facility] Specimen Anatomical Collection Method Collection Time Receive d Time (Source) Location / / Volume Laterality 10/01/2011 5:18 AM 2 5:18 CDT AM CDT Van Barron M.D. LAB BLOOD ADD-ON Performing Organization Address City/[facility] Phon e Number [facility] LABORATORIES - [address] [place] [phone] [facility] Bilirubin (10/01/2011 5:18 AM CDT) P athologist Signature Bilirubin, 0.3 0.1 - 1.0 [facility] Total, S MG/DL LABORATORIES [facility] Bilirubin, 0.2 0.0 - 0.3 [facility] Direct, S MG/DL LABORATORIES - [facility] Specimen Anatomical Collection Method Collection Time Receive d Time (Source) Location / / Volume Laterality 10/01/2011 5:18 AM 2 5:18 CDT AM CDT Van Barron M.D. LAB BLOOD ADD-ON Performing Organization Address City/State/[facility] Code Phon e Number [facility] LABORATORIES - [address] [address] [facility] (ABNORMAL) Alkaline Phosphatase (10/01/2011 5:18 AM CDT) [facility] gist Method Time Signature Alkaline 330 (H) 45 - 115 [facility] Phosphatase, S U/L LABORATORIES [facility] Specimen Anatomical Collection Method Collection Time Receive d Time (Source) Location / / Volume Laterality 10/01/2011 5:18 AM 2 5:18 CDT AM CDT Van Barron M.D. LAB BLOOD ADD-ON Performing Organization Address City/[facility] Code Phon e Number [facility] LABORATORIES - [address] [address] [facility] V&IRAD Vascular & Intervention (09/30/2011 9:55 AM CDT) Anatomical Region Laterality Modality N/A X-Ray Angiography Specimen (Source) Anatomical Collection Method Collection Time Re ceived Time Location / / Volume Laterality 09/30/2011 9:55 AM CDT Narrative 09/30/2011 10:03 AM CDT 30-Sep-2011 09:55:00 ??Exam: V&IRAD Vascular & Intervention Indications: Sinogram;? placement of fransisco in and size of residue cavity ORIGINAL REPORT - 30-Sep-2011 10:03:00 HISTORY: 56 year-old male with hepatic d rain placed in abscess cavity. ?? TECHNIQUE/FINDINGS: Contrast injection t hrough the existing intrahepatic pigtail drain shows a thin cavity that is moderately well controlled by the existing drain. Immediate connection is noted to the biliary tree which is expected given the 500cc/day biliary output from the drain. No contrast is noted in the common duct or flowing into the bowel. No extrahepatic extravasation. ?? No manipulation performed. Recommend flu shing and aspirating with 5cc saline twice daily. ?? PREPROCEDURE: Patient seen, evaluated, a nd [...] team members, residents, and fellows were discussed. Electronically signed by: ?? Melvin Merlos MD [id number] 30-Sep-2011 1 0:03 Procedure Note Melvin Merlos M.D. - 09/20/2017Forma tting of this note might be different from the original. 30-Sep-2011 09:55:00 Exam: V&IRAD Vascul ar & Intervention Indications: Sinogram;? placement of fransisco in and size of residue cavity ORIGINAL REPORT - 30-Sep-2011 10:03:00 HISTORY: 56 year-old male with hepatic d rain placed in abscess cavity. TECHNIQUE/FINDINGS: Contrast injection t hrough the existing intrahepatic pigtail drain shows a thin cavity that is moderately well controlled by the existing drain. Immediate connection is noted to the biliary tree which is expected given the 500cc/day bi liary output from the drain. No contrast is noted in the common duct or flowing into the bowel. No extrahepatic extravasation. No manipulation performed. Recommend flu shing and aspirating with 5cc saline twice daily. PREPROCEDURE: Patient seen, evaluated, a nd history [...] fellows were dis cussed. Electronically signed by: Melvin Merlos MD [id number] 30-Sep-2011 1 0:03 Anatoliy Bernardo M.D. IMG IR PROCEDURES (ABNORMAL) Alkaline Phosphatase (09/30/2011 5:14 AM CDT) [facility] Method Time Signature Alkaline 383 (H) 45 - 115 [facility] Phosphatase, S U/L [facility] Specimen Anatomical Collection Method Collection Time Receive d Time (Source) Location / / Volume Laterality 09/30/2011 5:14 AM 2 5:14 CDT AM CDT Van Barron M.D. LAB BLOOD ADD-ON Performing Organization Address City/[facility]/ZIP Code Phon e Number [facility] [address] PT (Prothrombin Time) with INR (09/30/2011 5:14 AM CDT) [facility] Method Time Signature Prothrombin 13.4 9.5 - 13.8 [facility] Time, P SEC [facility] INR 1.1 0.8 - 1.2 [facility] Specimen Anatomical Collection Method Collection Time Receive d Time (Source) Location / / Volume Laterality 09/30/2011 5:14 AM 2 5:14 CDT AM CDT Van Barron M.D. LAB BLOOD ADD-ON Performing Organization Address City/[facility]/ZIP Code Phon e Number [facility] - [address] [phone] [facility] AST (Aspartate Aminotransferase) (09/30/2011 5:14 AM CDT) P athologist Signature AST, Total, S 36 8 - 48 U/L [facility] Specimen Anatomical Collection Method Collection Time Receive d Time (Source) Location / / Volume Laterality 09/30/2011 5:14 AM 2 5:14 CDT AM CDT Van Barron M.D. LAB BLOOD ADD-ON Performing Organization Address City/[facility]/ZIP Code Phon e Number [facility] - [address] [phone] 05 [facility] Tacrolimus Level (09/30/2011 5:14 AM CDT) Analysis Performed At [facility] logist Time Signature Tacrolimus, B 9.7 5.0-15.0 [facility] (Trough) LABORATORIES - NG/ML [facility] Tacrolimus . [facility] Blood Date of LABORATORIES - Last Dose [facility] Comment: Not Specified Tacrolimus Time of Last Dose . M [facility] LABORATORIES - [facility] Comment: Not Specified Tacrolimus Blood Dose, mg . [facility] LABORATORIES - [facility] Comment: Not Specified Specimen Anatomical Collection Method Collection Time Receive d Time (Source) Location / / Volume Laterality 09/30/2011 5:14 AM 2 5:14 CDT AM CDT Van Barron M.D. LAB BLOOD NON ADD-ON Performing Organization Address City/State/ZIP Code Phon e Number [facility] LABORATORIES - [address] [place] [address] [facility] (ABNORMAL) CBC with Differential - No Alerts (09/30/2011 5:14 AM CDT) [facility] gist Method Time Signature Erythrocytes 3.03 (L) 4.32 - [facility] 5.72 LABORATORIES - X10(12)/L [facility] MCV 89.4 81.2 - [facility] 95.1 FL LABORATORIES - [facility] Lymphocytes 1.65 0.90 - [facility] 2.90 LABORATORIES - X10(9)/L [facility] Monocytes 1.27 (H) 0.30 - [facility] 0.90 LABORATORIES - X10(9)/L [facility] Hemoglobin 8.8 (L) 13.5 - [facility] 17.5 G/DL LABORATORIES - [facility] Hematocrit 27.1 (L) 38.8 - [facility] 50.0 % LABORATORIES - [facility] RBC Distrib 12.6 11.8 - [facility] Width 15.6 % LABORATORIES - [facility] Platelet Count 204 150 - 450 [facility] X10(9)/L LABORATORIES - [facility] Leukocytes 9.0 3.5 - [facility] 10.5 LABORATORIES - X10(9)/L [facility] Neutrophils 5.90 1.70 - [facility] 7.00 LABORATORIES - X10(9)/L [facility] Eosinophils 0.17 0.05 - [facility] 0.50 LABORATORIES - X10(9)/L [facility] Basophils 0.02 0.00 - [facility] 0.30 LABORATORIES - X10(9)/L [facility] Specimen Anatomical Collection Method Collection Time Receive d Time (Source) Location / / Volume Laterality 09/30/2011 5:14 AM 2 5:14 CDT AM CDT Van Barron M.D. LAB BLOOD NON ADD-ON Performing Organization Address City/[facility]/ZIP Code Phon e Number [facility] LABORATORIES - [address] [phone] [facility] (ABNORMAL) Albumin (09/30/2011 5:14 AM CDT) P athologist Signature Albumin, S 2.9 (L) 3.5 - 5.0 [facility] G/DL [facility] Specimen Anatomical Collection Method Collection Time Receive d Time (Source) Location / / Volume Laterality 09/30/2011 5:14 AM 2 5:14 CDT AM CDT Van Barron M.D. LAB BLOOD ADD-ON Performing Organization Address City/[facility]/ZIP Code Phon e Number [facility] LABORATORIES - [address] [phone] 05 [facility] Magnesium (09/30/2011 5:14 AM CDT) P athologist Signature Magnesium, S 2.0 1.7 - 2.3 [facility] MG/DL [facility] Specimen Anatomical Collection Method Collection Time Receive d Time (Source) Location / / Volume Laterality 09/30/2011 5:14 AM 2 5:14 CDT AM CDT Van Barron M.D. LAB BLOOD ADD-ON Performing Organization Address City/[facility] Phon e Number [facility] LABORATORIES - [address] [phone] [facility] (ABNORMAL) Electrolyte (Chem 4) Panel (09/30/2011 5:14 AM CDT) Patholo gist Method Time Signature Sodium, S 132 (L) 135 - 145 [facility] MMOL/L [facility] Potassium, S 4.5 3.6 - 5.2 [facility] MMOL/L LABORATORIES - [facility] Chloride, S 99 (L) 100 - 108 [facility] MMOL/L LABORATORIES - [facility] HX Bicarbonate, 24 22 - 29 [facility] P/S MMOL/L LABORATORIES - [facility] Creatinine 1.4 (H) 0.8 - 1.3 [facility] MG/DL LABORATORIES - [facility] eGFR 52 (L) >60 [facility] Non-Black/Afric ML/MIN/BS LABORATORIES - an Lao A [facility] eGFR-Black/Afri >60 >60 [facility] can Lao ML/MIN/BS LABORATORIES - A [facility] BUN (Blood Urea 24 8 - 24 [facility] Nitrogen), S MG/DL LABORATORIES - [facility] Anion Gap 9 7 - 15 [facility] LABORATORIES - [facility] Glucose, S 241 (H) 70 - 140 [facility] MG/DL LABORATORIES - [facility] Specimen Anatomical Collection Method Collection Time Receive d Time (Source) Location / / Volume Laterality 09/30/2011 5:14 AM 2 5:14 CDT AM CDT Van Barron M.D. LAB BLOOD ADD-ON Performing Organization Address City/[facility] Code Phon e Number [facility] LABORATORIES - [address] (ABNORMAL) ALT (Alanine Aminotransferase) (09/30/2011 5:14 AM CDT) [facility] Method Time Signature Alanine 96 (H) 7 - 55 [facility] Aminotransferase U/L LABORATORIES - (ALT), S [facility] Specimen Anatomical Collection Method Collection Time Receive d Time (Source) Location / / Volume Laterality 09/30/2011 5:14 AM 2 5:14 CDT AM CDT Van Barron M.D. LAB BLOOD ADD-ON Performing Organization Address City/State/[facility] Phon e Number [facility] LABORATORIES - [address] (ABNORMAL) Calcium, Total (09/30/2011 5:14 AM CDT) [facility] Method Time Signature Calcium, 8.6 (L) 8.9 - 10.1 [facility] Total, S MG/DL LABORATORIES - [facility] Specimen Anatomical Collection Method Collection Time Receive d Time (Source) Location / / Volume Laterality 09/30/2011 5:14 AM 2 5:14 CDT AM CDT Van Barron M.D. LAB BLOOD ADD-ON Performing Organization Address City/[facility]/ZIP Code Phon e Number [facility] LABORATORIES - [address] [phone] [facility] Bilirubin (09/30/2011 5:14 AM CDT) athologist Signature Bilirubin, 0.4 0.1 - 1.0 [facility] Total, S MG/DL LABORATORIES - [facility] Bilirubin, 0.3 0.0 - 0.3 [facility] Direct, S MG/DL LABORATORIES - [facility] Specimen Anatomical Collection Method Collection Time Receive d Time (Source) Location / / Volume Laterality 09/30/2011 5:14 AM 2 5:14 CDT AM CDT Van Barron M.D. LAB BLOOD ADD-ON Performing Organization Address City/[facility] Phon e Number [facility] LABORATORIES - [address] [phone] 05 [facility] US Liver Drainage with Imaging Guidance (09/29/2011 1:34 PM CDT) Anatomical Region Laterality Modality Abdomen N/A Ultrasound Specimen (Source) Anatomical Collection Method Collection Time Re ceived Time Location / / Volume Laterality 09/29/2011 1:34 PM CDT Narrative 09/29/2011 2:16 PM CDT 29-Sep-2011 13:34:00 ??Exam: US Drg Liver Abscess or Cyst Indications: liver abscess ORIGINAL REPORT - 29-Sep-2011 14:16:00 CT-guided percutaneous pigtail catheter insertion in a central hepatic fluid collection PROCEDURE: Using sterile technique, 1% buffered lid ocaine for local anesthetic, and ultrasound guidance, a 19-gauge introducer was advanced from a subxiphoid approach through the left hepatic lobe and into the jerry tral hepatic fluid and gas-filled collec tion shown on recent CT from 09/28/2011. ?? An aspirate was attempted yielding only a few ccs of bloody fluid. A wire was then advanced through the introducer, the tract serially dilated, and then a 10 [place]i catheter was advanced over the wire i nto the collection. Further aspiration y ielded 6 or 7 cc of bloody fluid. A sample of the fluid was sent for cultures. There were no immediate complications. The patient tolerated the procedure well. RECOMMENDATIONS: Recommend flushing the catheter with 5 c c of sterile normal saline three times per day. A sinogram should be performed within 24-48 hours to assess the catheter position and to perform any necessary catheter repositioning. CONSENT AND SEDATION: Patient seen, evaluated, history reviewe d, and approved for sedation. Airway, heart and lung exam satisfactory for sedation. Discussed risks, benefits, alternatives for procedure, and/or sedation, and o btained informed consent. ??Patient unde rstands information and questions answered. Immediately prior to starting the procedure, in the presence of the assisting personnel, procedural pause was conducte d to verify correct patient identity and verification of procedure to be performed, and as applicable, correct side and site, correct patient position, availability of implants, special equipment, or sp ecial requirements, and all image and sp ecimen identification data. Moderate sedation was administered by sedation nurse under my supervision. The roles and responsibilities of care team members, residents, and fellows were discussed. Electronically signed by: ?? Dorene Foreman MD [phone] ??F49 2 14:16 ?Clementina Ruelas MD [phone] 29-Sep-2011 14:16 Procedure Note Chelsy Foreman M.D. - 09/20/2017Forma tting of this note might be different from the original. 29-Sep-2011 13:34:00 Exam: US Drg Liver Abscess or Cyst Indications: liver abscess ORIGINAL REPORT - 29-Sep-2011 14:16:00 CT-guided percutaneous pigtail catheter insertion in a central hepatic fluid collection PROCEDURE: Using sterile technique, 1% buffered lid ocaine for local anesthetic, and ultrasound guidance, a 19-gauge introducer was advanced from a subxiphoid approach through the left hepatic lobe and into the central hepatic fluid and gas-filled collection shown on recen t CT from 09/28/2011. An aspirate was attempted yielding only a few ccs of bloody fluid. A wire was then advanced through the introducer, the tract serially dilated, and then a 10 [place] catheter was advanced over the wire into the collection. Further aspiration yielded 6 or 7 cc of bloody fluid. A sample of the fluid was sent for cultures. There were no immediate complications. The patient tolerated the procedure well. RECOMMENDATIONS: Recommend flushing the catheter with 5 c c of sterile normal saline three times per day. A sinogram should be performed within 24-48 hours to assess the catheter position and to perform any necessary catheter repositioning. CONSENT AND SEDATION: Patient seen, evaluated, history reviewe d, and approved for sedation. Airway, heart and lung exam satisfactory for sedation. Discussed risks, benefits, alternatives for procedure, and/or sedation, and obtained informed consent. Patient understands in formation and questions answered. Immediately prior to starting the procedure, in the presence of the assisting personnel, procedural pause was conducted to verify correct patient identity and verification of pro cedure to be performed, and as applicable, correct side and site, correct patient position, availability of implants, special equipment, or special requirements, and all image and specimen identification data. Moderate s edation was administered by sedation nurse under my supervision. The roles and responsibilities of care team members, residents, and fellows were discussed. Electronically signed by: Dorene Foreman MD [phone] [id number] 29-Sep-2011 14:16 Clementina Ruelas MD [phone] 29-Sep-2011 14:16 Anatoliy Bernardo M.D. IM US PROCEDURES Microbiology Reports (09/29/2011 12:51 PM CDT) Specimen Anatomical Collection Method Collection Time Receive d Time (Source) Location / / Volume Laterality 09/29/2011 12:51 09/29/2011 2:13 PM CDT PM CDT Narrative [facility] - 10/24/2011 1:03 AM CDT 29-SEP-2011 LIVER, FLUID ? SoftOrd# [id number] ?(Specimen Collected 12:51; Received 29-SEP-2011 14:44) ? Dept Lab Med Path ?Bacterial aerobic and anaero bic susceptibilities requested. ?BACTERIAL, AEROBIC, CULTURE ? (Reported 06-OCT-2011 14:09) FINAL ?Susceptibilities requested b y phone. ?STREPTOCOCCUS VIRIDANS GROUP ??4+ ?Susceptibilities not perf ormed. ?ROTHIA MUCILAGINOSA ? 3+ ?Growth not adequate for s usceptibilities. Previous comment was modified at 11:39 on 10/05/2011 - ?Previous comment was isaiah fied at 14:50 on 10/02/2011 Susceptibilities not performed. ?GRAM STAIN ?(Reported 29-SEP-2011 16:31) FINAL ?Gram positive coccus resembl ing STREPTOCOCCUS, Many. ?BACTERIAL CULTURE, ANAEROBIC ?(Reported 07-OCT-2011 13:26) FINAL ?PREVOTELLA MELANINOGENICA ?? 4+ ?Beta lactamase positive. S=Susceptible;I=Intermediate;R=Resistant ;N=Not susceptible;D=Dose-dependent susceptible;Results in mcg/mL ?PREVOTELLA MELANINOGENICA ?Pip/Betito ? <=0.5/4 S ??Er tapenem ? <=0.5 S ??Clindamycin ? <=0.5 S ??Metronidazole ? <=0.5 S ?FUNGAL CULTURE, ROUTINE ? (Reported 24-OCT-2011 01:03) FINAL ?No growth after 24 days of i ncubation. Procedure Note 10/01/2017 29-SEP-2011 LIVER, FLUID SoftOrd# [id number] (Specimen Collected 29-SEP-2011 12:51; Received 29-SEP-2011 14:44) Dept Lab Med Path Bacterial aerobic and anaerobic suscept ibilities requested. BACTERIAL, AEROBIC, CULTURE (Reported 06-OCT-2011 14:09) FINAL Susceptibilities requested by phone. STREPTOCOCCUS VIRIDANS GROUP 4+ Susceptibilities not performed. ROTHIA MUCILAGINOSA 3+ Growth not adequate for susceptibilitie s. Previous comment was modified at 11:39 on 10/05/2011 - Previous comment was modified at 14:50 on 10/02/2011 Susceptibilities not performed. GRAM STAIN (Reported 29-SEP-2011 16:31 ) FINAL Gram positive coccus resembling STREPTO COCCUS, Many. BACTERIAL CULTURE, ANAEROBIC (Reported 07-OCT-2011 13:26) FINAL PREVOTELLA MELANINOGENICA 4+ Beta lactamase positive. S=Susceptible;I=Intermediate;R=Resistant ;N=Not susceptible;D=Dose-dependent susceptible;Results in mcg/mL PREVOTELLA MELANINOGENICA Pip/Betito <=0.5/4 S Ertapenem <=0.5 S Cli ndamycin <=0.5 S Metronidazole <=0.5 S FUNGAL CULTURE, ROUTINE (Reported 01:03) FINAL No growth after 24 days of incubation. Van Barron M.D. LAB MICROBIOLOGY - GEN ERAL ORDERABLES Performing Organization Address City/State/ZIP Code Phon e Number [facility] - [address] [place], [place] [address] [facility] (ABNORMAL) CBC with Differential - No Alerts (09/29/2011 5:13 AM CDT) [facility] Method Time Signature Hemoglobin 9.6 (L) 13.5 - [facility] 17.5 G/DL LABORATORIES [facility] Hematocrit 30.1 (L) 38.8 - [facility] 50.0 % LABORATORIES [facility] RBC Distrib 12.6 11.8 - [facility] Width 15.6 % LABORATORIES - [facility] Platelet Count 221 150 - 450 [facility] X10(9)/L LABORATORIES [facility] Lymphocytes 1.80 0.90 - [facility] 2.90 LABORATORIES - X10(9)/L [facility] Monocytes 1.27 (H) 0.30 - [facility] 0.90 LABORATORIES - X10(9)/L [facility] Erythrocytes 3.33 (L) 4.32 - [facility] 5.72 LABORATORIES - X10(12)/L [facility] MCV 90.4 81.2 - [facility] 95.1 FL LABORATORIES - [facility] Leukocytes 11.6 (H) 3.5 - [facility] 10.5 LABORATORIES - X10(9)/L [facility] Neutrophils 8.38 (H) 1.70 - [facility] 7.00 LABORATORIES - X10(9)/L [facility] Eosinophils 0.13 0.05 - [facility] 0.50 LABORATORIES - X10(9)/L [facility] Basophils 0.02 0.00 - [facility] 0.30 LABORATORIES - X10(9)/L [facility] Specimen Anatomical Collection Method Collection Time Receive d Time (Source) Location / / Volume Laterality 09/29/2011 5:13 AM 2 5:13 CDT AM CDT Historical Provider LAB BLOOD NON ADD-ON Performing Organization Address City/State/ZIP Code Phon e Number [facility] - [address] [place], [place] [address] [facility] (ABNORMAL) Alkaline Phosphatase (09/29/2011 5:13 AM CDT) [facility] Method Time Signature Alkaline 434 (H) 45 - 115 [facility] Phosphatase, S U/L LABORATORIES - [facility] Specimen Anatomical Collection Method Collection Time Receive d Time (Source) Location / / Volume Laterality 09/29/2011 5:13 AM 2 5:13 CDT AM CDT Historical Provider LAB BLOOD ADD-ON Performing Organization Address City/[facility]/ZIP Code Phon e Number [facility] - [address] [place] [address] [facility] (ABNORMAL) PT (Prothrombin Time) with INR (09/29/2011 5:13 AM CDT) [facility] Method Time Signature Prothrombin 14.5 (H) 9.5 - [facility] Time, P 13.8 SEC [facility] INR 1.2 0.8 - 1.2 [facility] Specimen Anatomical Collection Method Collection Time Receive d Time (Source) Location / / Volume Laterality 09/29/2011 5:13 AM 2 5:13 CDT AM CDT Historical Provider LAB BLOOD ADD-ON Performing Organization Address City/[facility]/ZIP Code Phon e Number [facility] - [address] [place], [place] [address] [facility] (ABNORMAL) AST (Aspartate Aminotransferase) (09/29/2011 5:13 AM CDT) Analysis Performed At [facility] logist Time Signature AST, Total, S 64 (H) 8 - 48 U/L [facility] Specimen Anatomical Collection Method Collection Time Receive d Time (Source) Location / / Volume Laterality 09/29/2011 5:13 AM 2 5:13 CDT AM CDT Historical Provider LAB BLOOD ADD-ON Performing Organization Address City/[facility]/ZIP [facility] [place] e Number [facility] - [address] [place], [place] [address] [facility] (ABNORMAL) Electrolyte (Chem 4) Panel (09/29/2011 5:13 AM CDT) [facility] gist Method Time Signature Sodium, S 134 (L) 135 - 145 [facility] MMOL/L [facility] Potassium, S 4.2 3.6 - 5.2 [facility] MMOL/L [facility] Chloride, S 99 (L) 100 - 108 [facility] MMOL/L [facility] HX Bicarbonate, 23 22 - 29 [facility] P/S MMOL/L [facility] Creatinine 1.3 0.8 - 1.3 [facility] MG/DL [facility] eGFR 57 (L) >60 [facility] Non-Black/Afric ML/MIN/BS LABORATORIES - an Lao A [facility] eGFR-Black/Afri >60 >60 [facility] can Lao ML/MIN/BS LABORATORIES - A [facility] BUN (Blood Urea 27 (H) 8 - 24 [facility] Nitrogen), S MG/DL LABORATORIES - [facility] Anion Gap 12 7 - 15 [facility] LABORATORIES - [facility] Glucose, S 188 (H) 70 - 140 [facility] MG/DL LABORATORIES - [facility] Specimen Anatomical Collection Method Collection Time Receive d Time (Source) Location / / Volume Laterality 09/29/2011 5:13 AM 2 5:13 CDT AM CDT Historical Provider LAB BLOOD ADD-ON Performing Organization Address City/[facility]/ZIP Code Phon e Number [facility] - [address] [place] [phone] [facility] (ABNORMAL) ALT (Alanine Aminotransferase) (09/29/2011 5:13 AM CDT) Component Value Ref Test Analysis Performed At Patholo gist Range Method Time Signature Alanine 126 (H) 7 - 55 [facility] Aminotransferase U/L LABORATORIES - (ALT), S [facility] Specimen Anatomical Collection Method Collection Time Receive d Time (Source) Location / / Volume Laterality 09/29/2011 5:13 AM 2 5:13 CDT AM CDT Historical Provider LAB BLOOD ADD-ON Performing Organization Address City/State/[facility] Code Phon e Number [facility]IES - [address] [place] [phone] [facility] Magnesium (09/29/2011 5:13 AM CDT) P athologist Signature Magnesium, S 2.0 1.7 - 2.3 [facility] MG/DL LABORATORIES - [facility] Specimen Anatomical Collection Method Collection Time Receive d Time (Source) Location / / Volume Laterality 09/29/2011 5:13 AM 2 5:13 CDT AM CDT Historical Provider LAB BLOOD ADD-ON Performing Organization Address City/State/ZIP Code Phon e Number [facility] - [address] [place] [phone] [facility] Tacrolimus Level (09/29/2011 5:13 AM CDT) Analysis Performed At Patho logist Time Signature Tacrolimus, B 6.6 5.0-15.0 [facility] (Trough) LABORATORIES - NG/ML [facility] Tacrolimus . [facility] Blood Date of LABORATORIES - Last Dose [facility] Comment: Not Specified Tacrolimus Time of Last Dose . M [facility] LABORATORIES - [facility] Comment: Not Specified Tacrolimus Blood Dose, mg . [facility] LABORATORIES - [facility] Comment: Not Specified Specimen Anatomical Collection Method Collection Time Receive d Time (Source) Location / / Volume Laterality 09/29/2011 5:13 AM 2 5:13 CDT AM CDT Historical Provider LAB BLOOD NON ADD-ON Performing Organization Address City/[facility] Phon e Number [facility]IES - [address] [place], [place] [address] [facility] (ABNORMAL) Albumin (09/29/2011 5:13 AM CDT) P athologist Signature Albumin, S 3.1 (L) 3.5 - 5.0 [facility] G/DL LABORATORIES - [facility] Specimen Anatomical Collection Method Collection Time Receive d Time (Source) Location / / Volume Laterality 09/29/2011 5:13 AM 2 5:13 CDT AM CDT Historical Provider LAB BLOOD ADD-ON Performing Organization Address City/[facility] Phon e Number [facility]IES - [address] [place], [place] [address] [facility] (ABNORMAL) Bilirubin (09/29/2011 5:13 AM CDT) [facility] gist Method Time Signature Bilirubin, 0.8 0.1 - 1.0 [facility] Total, S MG/DL LABORATORIES [facility] Bilirubin, 0.5 (H) 0.0 - 0.3 [facility] Direct, S MG/DL LABORATORIES [facility] Specimen Anatomical Collection Method Collection Time Receive d Time (Source) Location / / Volume Laterality 09/29/2011 5:13 AM 2 5:13 CDT AM CDT Historical Provider LAB BLOOD ADD-ON Performing Organization Address City/[facility] Phon e Number [facility] LAB[facility]ATORIES - [address] [place] [address] [facility] (ABNORMAL) Calcium, Total (09/29/2011 5:13 AM CDT) [facility] gist Method Time Signature Calcium, 8.6 (L) 8.9 - 10.1 [facility] Total, S MG/DL [facility] Specimen Anatomical Collection Method Collection Time Receive d Time (Source) Location / / Volume Laterality 09/29/2011 5:13 AM 2 5:13 CDT AM CDT Historical Provider LAB BLOOD ADD-ON Performing Organization Address City/[facility]/ZIP Code Phon e Number [facility] LAB[facility]IES - [address] [place] [address] [facility] (ABNORMAL) Microscopic Manual (09/28/2011 8:13 PM CDT) [facility] Method Time Signature Microscopy Abnormal [facility] Blood 3-10 (A) <3; /HPF [facility] Dysmorphic RBC <25 <25 % [facility] WBC 1-3 1-3 [facility] (Males); LABORATORIES - 1-10 [facility] (Females) [place] ; /HPF Specimen Anatomical Collection Method Collection Time Receive d Time (Source) Location / / Volume Laterality 09/28/2011 8:13 PM 2 8:13 CDT PM CDT Van Barron M.D. LAB URINE ORDERABLES Performing Organization Address City/[facility]/ZIP Code Phon e Number [facility]IES - [address] [place] [address] [facility] Gram Stain, Urine (09/28/2011 8:13 PM CDT) [facility] Method Time Signature Gram's Stain, Negative [facility] Screen, U [facility] Specimen Anatomical Collection Method Collection Time Receive d Time (Source) Location / / Volume Laterality 09/28/2011 8:13 PM 2 8:13 CDT PM CDT Van Barron M.D. LAB URINE ORDERABLES Performing Organization Address City/[facility]/ZIP Code Phon e Number [facility] - [address] [phone] [facility] (ABNORMAL) Urinalysis with Microscopic (09/28/2011 8:13 PM CDT) [facility] Method Time Signature Source Midstream [facility] Osmolality, 24 624 150 - 1150 [facility] HR, U MOSM/KG [facility] Glucose 53 (H) <25; MG/DL [facility] Protein, U 28 MG/DL [facility] Protein/[place] 0.45 (H) <0.12 RATIO [facility] lity [facility] Predicted 24 439 MG/24 H [facility] Hr Protein [facility] pH, 24 HR, U 5.7 4.5 - 8.0 [facility] Appearance Normal Normal [facility] Predicted 139-1382 MG/24 H [facility] Range [facility] Hemoglobin, QL Small (A) Negative [facility] Specimen Anatomical Collection Method Collection Time Receive d Time (Source) Location / / Volume Laterality 09/28/2011 8:13 PM 2 8:13 CDT PM CDT Van Barron M.D. LAB URINE ORDERABLES Performing Organization Address City/State/ZIP Code Phon e Number [facility] - [address] [place], [place] [address] [facility] Microbiology Reports (09/28/2011 6:35 PM CDT) Specimen Anatomical Collection Method Collection Time Receive d Time (Source) Location / / Volume Laterality 09/28/2011 6:35 PM 2 6:35 CDT PM CDT Narrative [facility] - 10/04/2011 3:53 PM CDT 28-SEP-2011 BLOOD, ? SoftOrd# [id number] ?(Specimen Collected 18:35; Received 28-SEP-2011 19:05) ? Dept Lab Med Path ?BACTERIA/MARRY CULTURE, BLOOD ? (Reported 13-APR-2012 15:53) FINAL ?STREPTOCOCCUS VIRIDANS GROUP ??Growth after 28 Hours ?2 of 3 Bottles Susceptibi lities performed on another specimen [id number] Previous comment was ?modified at 21:17 on 02/2012 1 of 3 Bottles, ?MICROCOCCUS sp ?Growth after 28 Hours ?1 of 3 Bottles Susceptibi lities performed on another specimen [id number] Procedure Note 10/01/2017 28-SEP-2011 BLOOD, SoftOrd# [id number] (Specimen Collected 28-SEP-2011 18:35; Received 28-SEP-2011 19:05) Dept Lab Med Path BACTERIA/MARRY CULTURE, BLOOD (Repor onel 04-OCT-2011 15:53) FINAL STREPTOCOCCUS VIRIDANS GROUP Growth aft er 28 Hours 2 of 3 Bottles Susceptibilities perform ed on another specimen [id number] Previous comment was modified at 21:17 on 09/30/2011 1 of 3 Bottles, MICROCOCCUS sp Growth after 28 Hours 1 of 3 Bottles Susceptibilities perform ed on another specimen [id number] Van Barron M.D. LAB MICROBIOLOGY - GEN ERAL ORDERABLES Performing Organization Address City/State/ZIP Code Phon e Number [facility] - [address] [place], [place] [address] [facility] (ABNORMAL) PT (Prothrombin Time) with INR (09/28/2011 6:34 PM CDT) [facility] gist Method Time Signature Prothrombin 14.5 (H) 9.5 - [facility] Time, P 13.8 SEC [facility] INR 1.2 0.8 - 1.2 [facility] Specimen Anatomical Collection Method Collection Time Receive d Time (Source) Location / / Volume Laterality 09/28/2011 6:34 PM 2 6:34 CDT PM CDT Van Barron M.D. LAB BLOOD ADD-ON Performing Organization Address City/State/ZIP Code Phon e Number [facility] - [address] [place], [place] [address] [facility] Microbiology Reports (09/28/2011 6:31 PM CDT) Specimen Anatomical Collection Method Collection Time Receive d Time (Source) Location / / Volume Laterality 09/28/2011 6:31 PM 2 6:32 CDT PM CDT Narrative [facility] - [facility] - 10/04/2011 3:53 PM CDT 28-SEP-2011 BLOOD, ? SoftOrd# [id number] ?(Specimen Collected 18:31; Received 28-SEP-2011 19:05) ? Dept Lab Med Path ?BACTERIA/MARRY CULTURE, BLOOD ? (Reported 04-OCT-2011 15:53) FINAL ?Susceptibilities requested b y phone. ?STREPTOCOCCUS VIRIDANS GROUP ??Growth after 33 Hours ?3 of 3 Bottles Previous c omment was modified at 00:01 on 10/01/2011 2 of 3 Bottles, Previous comment ?was modified at 13:38 on 09/30/2011 1 of 3 Bottles, ?MICROCOCCUS sp ?Growth after 33 Hours ?1 of 3 Bottles, S=Susceptible;I=Intermediate;R=Resistant ;N=Not susceptible;D=Dose-dependent susceptible;Results in mcg/mL ?STREPTOCOCCUS VIRIDANS GROUP ?Penicillin ? <=0.06 S ??Cef epime ?<=0.5 S ??Ceftriaxone ? <=0.5 S ??Ertapenem ?<=0.25 S ?Meropenem ?<=0.25 S ??Le vofloxacin ? >4 R ??Erythromycin ? >0.5 R ??Vancomycin ?<=1 S ?MICROCOCCUS sp ?Oxacillin ? 1 ?Ceftriaxone ? <=1 ?Ertapenem ?<=0.25 ?Clindamycin ? <=0.5 ?TMP/SMX ?<=.5/9.5 ?V ancomycin ?<=0.5 ?Rifampin ?<=0.5 ?Rifampin: Rifampin should not b e used as monotherapy ? Disassociated Result ?REVISED REPORT-Org MICROCOCC US sp - Penicillin previously reported as 0.12 at 11:40 on 10/02/2011 ?REVISED REPORT-Org MICROCOCC US sp - Cefazolin previously reported as <=2 ?? at 11:40 on 10/02/2011 ?REVISED REPORT-Org MICROCOCC US sp - Levofloxacin previously reported as <=1 at 11:40 on 10/02/2011 ?REVISED REPORT-Org MICROCOCC US sp - Minocycline previously reported as <=1 at 11:40 on 10/02/2011 ?REVISED REPORT-Org MICROCOCC US sp - Linezolid previously reported as <=2 ?? at 11:40 on 10/02/2011 ?REVISED REPORT-Org MICROCOCC US sp - Nitrofurantoin previously reported as >64 at 11:40 on 10/02/2011 Procedure Note 10/01/2017 28-SEP-2011 BLOOD, SoftOrd# [id number] (Specimen Collected 28-SEP-2011 18:31; Received 28-SEP-2011 19:05) Dept Lab Med Path BACTERIA/MARRY CULTURE, BLOOD (Repor onel 04-OCT-2011 15:53) FINAL Susceptibilities requested by phone. STREPTOCOCCUS VIRIDANS GROUP Growth aft er 33 Hours 3 of 3 Bottles Previous comment was mod ified at 00:01 on 10/01/2011 2 of 3 Bottles, Previous comment was modified at 13:38 on 09/30/2011 1 o f 3 Bottles, MICROCOCCUS sp Growth after 33 Hours 1 of 3 Bottles, S=Susceptible;I=Intermediate;R=Resistant ;N=Not susceptible;D=Dose-dependent susceptible;Results in mcg/mL STREPTOCOCCUS VIRIDANS GROUP Penicillin <=0.06 S Cefepime <=0.5 S Ce ftriaxone <=0.5 S Ertapenem <=0.25 S Meropenem <=0.25 S Levofloxacin >4 R Er ythromycin >0.5 R Vancomycin <=1 S MICROCOCCUS sp Oxacillin 1 Ceftriaxone <=1 Ertapenem < =0.25 Clindamycin <=0.5 TMP/SMX <=.5/9.5 Vancomycin <=0.5 Rifam pin <=0.5 Rifampin: Rifampin should not be used a s monotherapy Disassociated Result REVISED REPORT-Org MICROCOCCUS sp - Pen icillin previously reported as 0.12 at 11:40 on 10/02/2011 REVISED REPORT-Org MICROCOCCUS sp - Cef azolin previously reported as <=2 at 11:40 on 10/02/2011 REVISED REPORT-Org MICROCOCCUS sp - Lev ofloxacin previously reported as <=1 at 11:40 on 10/02/2011 REVISED REPORT-Org MICROCOCCUS sp - Min ocycline previously reported as <=1 at 11:40 on 10/02/2011 REVISED REPORT-Org MICROCOCCUS sp - Domitila ezolid previously reported as <=2 at 11:40 on 10/02/2011 REVISED REPORT-Org MICROCOCCUS sp - Nit rofurantoin previously reported as >64 at 11:40 on 10/02/2011 Van Barron M.D. LAB MICROBIOLOGY - GEN ERAL ORDERABLES Performing Organization Address City/[facility] Phon e Number [facility]IES - [address] [id number] [facility] (ABNORMAL) Magnesium (09/28/2011 6:31 PM CDT) Analysis Performed At Patho logist Time Signature Magnesium, S 1.6 (L) 1.7 - 2.3 [facility] MG/DL LABORATORIES [facility] [place] Specimen Anatomical Collection Method Collection Time Receive d Time (Source) Location / / Volume Laterality 09/28/2011 6:31 PM 2 6:31 CDT PM CDT Van Barron M.D. LAB BLOOD ADD-ON Performing Organization Address City/[facility] Phon e Number [facility] LABORATORIES - [address] [phone] [facility] (ABNORMAL) AST (Aspartate Aminotransferase) (09/28/2011 6:31 PM CDT) Analysis Performed At Patho logist Time Signature AST, Total, S 94 (H) 8 - 48 U/L [facility] Specimen Anatomical Collection Method Collection Time Receive d Time (Source) Location / / Volume Laterality 09/28/2011 6:31 PM 2 6:31 CDT PM CDT Van Barron M.D. LAB BLOOD ADD-ON Performing Organization Address City/[facility] Phon e Number [facility] LABORATORIES - [address] [phone] [facility] (ABNORMAL) ALT (Alanine Aminotransferase) (09/28/2011 6:31 PM CDT) Component Value Ref Test Analysis Performed At Patholo gist Range Method Time Signature Alanine 153 (H) 7 - 55 [facility] Aminotransferase U/L LABORATORIES - (ALT), S [facility] Specimen Anatomical Collection Method Collection Time Receive d Time (Source) Location / / Volume Laterality 09/28/2011 6:31 PM 2 6:31 CDT PM CDT Van Barron M.D. LAB BLOOD ADD-ON Performing Organization Address City/[facility] Code Phon e Number [facility] LABORATORIES - [address] [phone] 05 [facility] (ABNORMAL) Bilirubin (09/28/2011 6:31 PM CDT) [facility] Method Time Signature Bilirubin, 1.1 (H) 0.1 - 1.0 [facility] Total, S MG/DL LABORATORIES - [facility] Bilirubin, 0.7 (H) 0.0 - 0.3 [facility] Direct, S MG/DL LABORATORIES - [facility] Specimen Anatomical Collection Method Collection Time Receive d Time (Source) Location / / Volume Laterality 09/28/2011 6:31 PM 2 6:31 CDT PM CDT Van Barron M.D. LAB BLOOD ADD-ON Performing Organization Address City/[facility] Code Phon e Number [facility] LABORATORIES - [address] [phone] [facility] (ABNORMAL) Alkaline Phosphatase (09/28/2011 6:31 PM CDT) [facility] Method Time Signature Alkaline 481 (H) 45 - 115 [facility] Phosphatase, S U/L LABORATORIES - [facility] Specimen Anatomical Collection Method Collection Time Receive d Time (Source) Location / / Volume Laterality 09/28/2011 6:31 PM 2 6:31 CDT PM CDT Van Barron M.D. LAB BLOOD ADD-ON Performing Organization Address City/State/[facility] Phon e Number [facility] LABORATORIES - [address] [phone] [facility] (ABNORMAL) CBC with Differential (09/28/2011 6:31 PM CDT) [facility] Method Time Signature Erythrocytes 3.37 (L) 4.32 - [facility] 5.72 LABORATORIES - X10(12)/L [facility] MCV 86.4 81.2 - [facility] 95.1 FL LABORATORIES - [facility] Lymphocytes 1.01 0.90 - [facility] 2.90 LABORATORIES - X10(9)/L [facility] Monocytes 1.00 (H) 0.30 - [facility] 0.90 LABORATORIES - X10(9)/L [facility] Hemoglobin 9.8 (L) 13.5 - [facility] 17.5 G/DL LABORATORIES - [facility] Hematocrit 29.1 (L) 38.8 - [facility] 50.0 % LABORATORIES [facility] [place] RBC Distrib 12.6 11.8 - [facility] Width 15.6 % LABORATORIES - [facility] Platelet Count 258 150 - 450 [facility] X10(9)/L LABORATORIES - [facility] Leukocytes 14.0 (H) 3.5 - [facility] 10.5 LABORATORIES - X10(9)/L [facility] Neutrophils 11.93 (H) 1.70 - [facility] 7.00 LABORATORIES - X10(9)/L [facility] Eosinophils 0.05 0.05 - [facility] 0.50 LABORATORIES - X10(9)/L [facility] Basophils 0.02 0.00 - [facility] 0.30 LABORATORIES - X10(9)/L [facility] Specimen Anatomical Collection Method Collection Time Receive d Time (Source) Location / / Volume Laterality 09/28/2011 6:31 PM 2 6:31 CDT PM CDT Van Barron M.D. LAB BLOOD ADD-ON Performing Organization Address City/State/ZIP Code Phon e Number [facility] LABORATORIES - [address] [place], [place] [address] [facility] (ABNORMAL) Electrolyte (Chem 4) Panel (09/28/2011 6:31 PM CDT) [facility] gist Method Time Signature Sodium, P 130 (L) 135 - 145 [facility] MMOL/L LABORATORIES - [facility] BUN (Blood Urea 26 (H) 8 - 24 [facility] Nitrogen), S MG/DL LABORATORIES - [facility] eGFR >60 >60 [facility] Non-Black/Afric ML/MIN/BS LABORATORIES - an Lao A [facility] eGFR-Black/Afri >60 >60 [facility] can Lao ML/MIN/BS LABORATORIES - A [facility] Potassium, P 4.2 3.6 - 5.2 [facility] MMOL/L LABORATORIES [facility] [place] Chloride, S 97 (L) 100 - 108 [facility] MMOL/L LABORATORIES - [facility] HX Bicarbonate, 21 (L) 22 - 29 [facility] P/S MMOL/L LABORATORIES - [facility] Creatinine 1.2 0.8 - 1.3 [facility] MG/DL LABORATORIES - [facility] Glucose, S 220 (H) 70 - 140 [facility] MG/DL LABORATORIES - [facility] Specimen Anatomical Collection Method Collection Time Receive d Time (Source) Location / / Volume Laterality 09/28/2011 6:31 PM 2 6:31 CDT PM CDT Van Barron M.D. LAB BLOOD ADD-ON Performing Organization Address City/State/ZIP Code Phon e Number [facility] LABORATORIES - [address] [place], [place] [address] [facility] documented in this encounter Visit Diagnoses Not on filedocumented in this encounter
--- OUTSIDE RECORDS SUMMARY | 2022-04-13 12:48 | XMS_ITS | Encounter Summary ---
:1955 Author Organization [facility] Address [address] [place] [address] Care Team Providers Name Role Phone Unavailable Primary Care Provider Unavailable Encounter Details Date Type Department Care Team Description 11/06/2011 - Hospital Encounter HX RST INFUSION GianlucaureLaverne 11/13/2011 THERAPY J, R.N. 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 [address] [place] [address] [phone] 05/08/2022 Appointment Laboratory Medicine Angélica Granger P.A.-CDemetrius [address] [place] [address] [phone] 05/08/2022 Clinical Admitting/Central Communication Scheduling 05/10/2022 Appointment Radiology Jeremie Rose M.D. [address] [place] [address] [phone] 05/10/2022 Comprehensive Visit Orthopedic Surgery Warner Graves M.D. [address] [place] [address] [phone] 05/22/2022 Appointment Laboratory Medicine Angélica Granger P.A.-CDemetrius [address] [place] [address] [phone] 06/05/2022 Appointment Laboratory Medicine Angélica Granger P.A.-C. [address] [place] [phone] 06/19/2022 Appointment Laboratory Medicine Angélica Granger P.A.-C. [address] [place] [phone] 07/03/2022 Appointment Laboratory Medicine Angélica Granger P.A.-C. [address] [place] [phone] 07/17/2022 Appointment Laboratory Medicine Angélica Granger P.A.-C. [address] [place] [phone] 07/31/2022 Appointment Laboratory Medicine Angélica Granger P.A.-C. [address] [place] [phone] 08/14/2022 Appointment Laboratory Medicine Angélica Granger P.A.-C. [address] [place] [phone] 08/28/2022 Appointment Laboratory Medicine Angélica Granger P.A.-C. [address] [place] [phone] documented as of this encounter Visit Diagnoses Not on filedocumented in this encounter
--- OUTSIDE RECORDS SUMMARY | 2022-04-13 12:48 | XMS_ITS | Encounter Summary ---
:1955 Author Organization [facility] Address [address] [place] [address] Care Team Providers Name Role Phone Unavailable Primary Care Provider Unavailable Encounter Details Date Type Department Care Team Description 01/13/2012 Hospital Encounter HX NO MAPPING Roshan Grace M.S .N., R.N., C.C.T.C. 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 [address] [place] [phone] 04/25/2022 Office Visit Otorhinolaryngology Dex Matta APRN, C.N.P., M.S.N. [address] [place] [phone] 05/08/2022 Appointment Laboratory Medicine Angélica Granger P.A.-C. [address] [place] [phone] 05/08/2022 Clinical Admitting/Central Communication Scheduling 05/10/2022 Appointment Radiology Jeremie Rose M.D. [address] [place] [phone] 05/10/2022 Comprehensive Visit Orthopedic Surgery Warner Graves M.D. [address] [place] [phone] 05/22/2022 Appointment Laboratory Medicine Angélica Granger P.A.-C. [address] [place] [phone] 06/05/2022 Appointment Laboratory Medicine Angélica Granger P.A.-C. [address] [place] [address] [phone] 06/19/2022 Appointment Laboratory Medicine Angélica Granger P.A.-C. [address] [place] [phone] 07/03/2022 Appointment Laboratory Medicine Angélica Granger P.A.-C. [address] [place] [phone] 07/17/2022 Appointment Laboratory Medicine Angélica Granger P.A.-C. [address] [place] [phone] 07/31/2022 Appointment Laboratory Medicine Angélica Granger P.A.-C. [address] [place] [address] [phone] 08/14/2022 Appointment Laboratory Medicine Angélica Granger P.A.-C. [address] [place] [address] [phone] 08/28/2022 Appointment Laboratory Medicine Angélica Granger P.A.-C. [address] [place] [phone] documented as of this encounter Visit Diagnoses Not on filedocumented in this encounter
--- OUTSIDE RECORDS SUMMARY | 2022-04-13 12:48 | XMS_ITS | Encounter Summary ---
:1955 Author Organization [facility] Address [address] [place] [address] Care Team Providers Name Role Phone Unavailable Primary Care Provider Unavailable Encounter Details Date Type Department Care Team Description 01/08/2012 Hospital Encounter HX NO MAPPING Roshan Grace M.S .N., R.N., C.C.T.C. 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 [address] [place] [phone] 04/25/2022 Office Visit Otorhinolaryngology Dex Matta APRN, C.N.P., M.S.N. [address] [place] [phone] 05/08/2022 Appointment Laboratory Medicine Angélica Granger P.A.-C. [address] [place] [phone] 05/08/2022 Clinical Admitting/Central Communication Scheduling 05/10/2022 Appointment Radiology Jeremie Rose M.D. [address] [place] [phone] 05/10/2022 Comprehensive Visit Orthopedic Surgery Warner Graves M.D. [address] [place] [phone] 05/22/2022 Appointment Laboratory Medicine Angélica Granger P.A.-C. [address] [place] [phone] 06/05/2022 Appointment Laboratory Medicine Angélica Granger P.A.-C. [address] [place] [address] [phone] 06/19/2022 Appointment Laboratory Medicine Angélica Granger P.A.-C. [address] [place] [phone] 07/03/2022 Appointment Laboratory Medicine Angélica Granger P.A.-C. [address] [place] [phone] 07/17/2022 Appointment Laboratory Medicine Angélica Granger P.A.-C. [address] [place] [phone] 07/31/2022 Appointment Laboratory Medicine Angélica Granger P.A.-C. [address] [place] [address] [phone] 08/14/2022 Appointment Laboratory Medicine Angélica Granger P.A.-C. [address] [place] [address] [phone] 08/28/2022 Appointment Laboratory Medicine Angélica Granger P.A.-C. [address] [place] [phone] documented as of this encounter Visit Diagnoses Not on filedocumented in this encounter
--- OUTSIDE RECORDS SUMMARY | 2022-04-13 12:48 | XMS_ITS | Encounter Summary ---
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 [address] [place] [phone] 04/25/2022 Office Visit Otorhinolaryngology Dex Matta APRN, C.N.P., M.S.N. [address] [place] [address] [phone] 05/08/2022 Appointment Laboratory Medicine Angélica Granger P.A.-C. [address] [place] [phone] 05/08/2022 Clinical Admitting/Central Communication Scheduling 05/10/2022 Appointment Radiology Jeremie Rose M.D. [address] [place] [phone] 05/10/2022 Comprehensive Visit Orthopedic Surgery Warner Graves M.D. [address] [place] [phone] 05/22/2022 Appointment Laboratory Medicine Angélica Granger P.A.-C. [address] [place] [phone] 06/05/2022 Appointment Laboratory Medicine Angélica Granger P.A.-C. [address] [place] [phone] 06/19/2022 Appointment Laboratory Medicine Angélica Granger P.A.-C. [address] [place] [phone] 07/03/2022 Appointment Laboratory Medicine Angélica Granger P.A.-C. [address] [place] [phone] 07/17/2022 Appointment Laboratory Medicine Angélica Granger P.A.-C. [address] [place] [phone] 07/31/2022 Appointment Laboratory Medicine Angélica Granger P.A.-C. [address] [place] [phone] 08/14/2022 Appointment Laboratory Medicine Angélica Granger P.A.-C. [address] [place] [address] [phone] 08/28/2022 Appointment Laboratory Medicine Angélica Granger P.A.-C. [address] [place] [phone] documented as of this encounter Visit Diagnoses Not on filedocumented in this encounter
--- OUTSIDE RECORDS SUMMARY | 2022-04-13 12:48 | XMS_ITS | Encounter Summary ---
:1955 Author Organization [facility] Address [address] [place] [address] Care Team Providers Name Role Phone Unavailable Primary Care Provider Unavailable Encounter Details Date Type Department Care Team Description 01/07/2012 Hospital Encounter HX NO MAPPING Roshan Grace M.S .N., R.N., C.C.T.C. 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 [address] [place] [phone] 04/25/2022 Office Visit Otorhinolaryngology Dex Matta APRN, C.N.P., M.S.N. [address] [place] [phone] 05/08/2022 Appointment Laboratory Medicine Angélica Grangre P.A.-C. [address] [place] [phone] 05/08/2022 Clinical Admitting/Central Communication Scheduling 05/10/2022 Appointment Radiology Jeremie Rose M.D. [address] [place] [phone] 05/10/2022 Comprehensive Visit Orthopedic Surgery Warner Graves M.D. [address] [place] [phone] 05/22/2022 Appointment Laboratory Medicine Angélica Granger P.A.-C. [address] [place] [phone] 06/05/2022 Appointment Laboratory Medicine Angélica Granger P.A.-C. [address] [place] [address] [phone] 06/19/2022 Appointment Laboratory Medicine Angélica Granger P.A.-C. [address] [place] [phone] 07/03/2022 Appointment Laboratory Medicine Angélica Granger P.A.-C. [address] [place] [phone] 07/17/2022 Appointment Laboratory Medicine Angélica Granger P.A.-C. [address] [place] [phone] 07/31/2022 Appointment Laboratory Medicine Angélica Granger P.A.-C. [address] [place] [address] [phone] 08/14/2022 Appointment Laboratory Medicine Angélica Granger P.A.-C. [address] [place] [address] [phone] 08/28/2022 Appointment Laboratory Medicine Angélica Granger P.A.-C. [address] [place] [phone] documented as of this encounter Visit Diagnoses Not on filedocumented in this encounter
--- OUTSIDE RECORDS SUMMARY | 2022-04-13 12:48 | XMS_ITS | Encounter Summary ---
:1955 Author Organization [facility] Address [address] [place] [address] Care Team Providers Name Role Phone Unavailable Primary Care Provider Unavailable Encounter Details Date Type Department Care Team Description 10/29/2011 Hospital Encounter HX RST TRANSPLANT CENTER Theresa Grace M.S.N., R.N., C.C.T.C. 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 [address] [place] [phone] 04/25/2022 Office Visit Otorhinolaryngology Dex Matta APRN, C.N.P., M.S.N. [address] [place] [phone] 05/08/2022 Appointment Laboratory Medicine Angélica Granger P.A.-C. [address] [place] [phone] 05/08/2022 Clinical Admitting/Central Communication Scheduling 05/10/2022 Appointment Radiology Jeremie Rose M.D. [address] [place] [phone] 05/10/2022 Comprehensive Visit Orthopedic Surgery Warner Graves M.D. [address] [place] [phone] 05/22/2022 Appointment Laboratory Medicine Angélica Granger P.A.-C. [address] [place] [phone] 06/05/2022 Appointment Laboratory Medicine Angélica Granger P.A.-C. [address] [place] [address] [phone] 06/19/2022 Appointment Laboratory Medicine Angélica Granger P.A.-C. [address] [place] [phone] 07/03/2022 Appointment Laboratory Medicine Angélica Granger P.A.-C. [address] [place] [phone] 07/17/2022 Appointment Laboratory Medicine Angélica Granger P.A.-C. [address] [place] [phone] 07/31/2022 Appointment Laboratory Medicine Angélica Granger P.A.-C. [address] [place] [phone] 08/14/2022 Appointment Laboratory Medicine Angélica Granger P.A.-C. [address] [place] [address] [phone] 08/28/2022 Appointment Laboratory Medicine Angélica Granger P.A.-C. [address] [place] [address] [phone] documented as of this encounter Visit Diagnoses Not on filedocumented in this encounter
--- OUTSIDE RECORDS SUMMARY | 2022-04-13 12:48 | XMS_ITS | Encounter Summary ---
:1955 Author Organization [facility] Address [address] [place] [address] Care Team Providers Name Role Phone Unavailable Primary Care Provider Unavailable Encounter Details Date Type Department Care Team Description 11/07/2011 - Hospital Encounter HX RST INFUSION Jane Carey, 11/14/2011 THERAPY R.N. 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 [address] [place] [phone] 04/25/2022 Office Visit Otorhinolaryngology Dex Matta APRN, C.N.P., M.S.N. [address] [place] [address] [phone] 05/08/2022 Appointment Laboratory Medicine Angélica Granger P.A.-CDemetrius [address] [place] [address] [phone] 05/08/2022 Clinical Admitting/Central Communication Scheduling 05/10/2022 Appointment Radiology Jeremie Rose M.D. [address] [place] [phone] 05/10/2022 Comprehensive Visit Orthopedic Surgery Warner Graves M.D. [address] [place] [address] [phone] 05/22/2022 Appointment Laboratory Medicine Angélica Granger P.A.-CDemetrius [address] [place] [address] [phone] 06/05/2022 Appointment Laboratory Medicine Angélica Granger P.A.-CDemetrius [address] [place] [phone] 06/19/2022 Appointment Laboratory Medicine Angélica Granger P.A.-C. [address] [place] [phone] 07/03/2022 Appointment Laboratory Medicine Angélica Granger P.A.-C. [address] [place] [phone] 07/17/2022 Appointment Laboratory Medicine Angélica Granger P.A.-C. [address] [place] [phone] 07/31/2022 Appointment Laboratory Medicine Angélica Granger P.A.-C. [address] [place] [phone] 08/14/2022 Appointment Laboratory Angélica Royal P.A.-C. [address] [place] [phone] 08/28/2022 Appointment Laboratory Angélica Royal P.A.-C. [address] [place] [phone] documented as of this encounter Visit Diagnoses Not on filedocumented in this encounter
--- OUTSIDE RECORDS SUMMARY | 2022-04-13 12:48 | XMS_ITS | Encounter Summary ---
:1955 Author Organization [facility] Address [address] [place] [address] Care Team Providers Name Role Phone Unavailable Primary Care Provider Unavailable Encounter Details Date Type Department Care Team Description 12/10/2011 Hospital Encounter HX NO MAPPING Roshan Grace M.S .N., R.N., C.C.T.C. 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 [address] [place] [phone] 04/25/2022 Office Visit Otorhinolaryngology Dex Matta APRN, C.N.P., M.S.N. [address] [place] [phone] 05/08/2022 Appointment Laboratory Medicine Angélica Granger P.A.-C. [address] [place] [phone] 05/08/2022 Clinical Admitting/Central Communication Scheduling 05/10/2022 Appointment Radiology Jeremie Rose M.D. [address] [place] [phone] 05/10/2022 Comprehensive Visit Orthopedic Surgery Warner Graves M.D. [address] [place] [phone] 05/22/2022 Appointment Laboratory Medicine Angélica Granger P.A.-C. [address] [place] [phone] 06/05/2022 Appointment Laboratory Medicine Angélica Granger P.A.-C. [address] [place] [address] [phone] 06/19/2022 Appointment Laboratory Medicine Angélica Granger P.A.-C. [address] [place] [phone] 07/03/2022 Appointment Laboratory Medicine Angélica Granger P.A.-C. [address] [place] [phone] 07/17/2022 Appointment Laboratory Medicine Angélica Granger P.A.-C. [address] [place] [phone] 07/31/2022 Appointment Laboratory Medicine Angélica Granger P.A.-C. [address] [place] [phone] 08/14/2022 Appointment Laboratory Medicine Angélica Granger P.A.-C. [address] [place] [phone] 08/28/2022 Appointment Laboratory Medicine Angélica Granger P.A.-C. [address] [place] [phone] documented as of this encounter Visit Diagnoses Not on filedocumented in this encounter
--- OUTSIDE RECORDS SUMMARY | 2022-04-13 12:48 | XMS_ITS | Encounter Summary ---
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 [address] [place] [phone] 04/25/2022 Office Visit Otorhinolaryngology Dex Matta APRN, C.N.P., M.S.N. [address] [place] [phone] 05/08/2022 Appointment Laboratory Medicine Angélica Granger P.A.-C. [address] [place] [phone] 05/08/2022 Clinical Admitting/Central Communication Scheduling 05/10/2022 Appointment Radiology Jeremie Rose M.D. [address] [place] [phone] 05/10/2022 Comprehensive Visit Orthopedic Surgery Warner Graves M.D. [address] [place] [phone] 05/22/2022 Appointment Laboratory Medicine Angélica Granger P.A.-C. [address] [place] [phone] 06/05/2022 Appointment Laboratory Medicine Angélica Granger P.A.-C. [address] [place] [phone] 06/19/2022 Appointment Laboratory Medicine Angélica Granger P.A.-C. [address] [place] [phone] 07/03/2022 Appointment Laboratory Medicine Angélica Granger P.A.-C. [address] [place] [phone] 07/17/2022 Appointment Laboratory Medicine Angélica Granger P.A.-C. [address] [place] [phone] 07/31/2022 Appointment Laboratory Medicine Angélica Granger P.A.-C. [address] [place] [phone] 08/14/2022 Appointment Laboratory Medicine Angélica Granger P.A.-C. [address] [place] [address] [phone] 08/28/2022 Appointment Laboratory Medicine Angélica Granger P.A.-C. [address] [place] [phone] documented as of this encounter Visit Diagnoses Not on filedocumented in this encounter
--- OUTSIDE RECORDS SUMMARY | 2022-04-13 12:48 | XMS_ITS | Encounter Summary ---
:1955 Author Organization [facility] Address [address] [place] [address] Care Team Providers Name Role Phone Unavailable Primary Care Provider Unavailable Encounter Details Date Type Department Care Team Description 11/21/2011 Hospital Encounter HX NO MAPPING Roshan Grace M.S .N., R.N., C.C.T.C. 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 [address] [place] [phone] 04/25/2022 Office Visit Otorhinolaryngology Dex Matta APRN, C.N.P., M.S.N. [address] [place] [phone] 05/08/2022 Appointment Laboratory Medicine Angélica Granger P.A.-C. [address] [place] [phone] 05/08/2022 Clinical Admitting/Central Communication Scheduling 05/10/2022 Appointment Radiology Jeremie Rose M.D. [address] [place] [phone] 05/10/2022 Comprehensive Visit Orthopedic Surgery Warner Graves M.D. [address] [place] [phone] 05/22/2022 Appointment Laboratory Medicine Angélica Granger P.A.-C. [address] [place] [phone] 06/05/2022 Appointment Laboratory Medicine Angélica Granger P.A.-C. [address] [place] [address] [phone] 06/19/2022 Appointment Laboratory Medicine Angélica Granger P.A.-C. [address] [place] [phone] 07/03/2022 Appointment Laboratory Medicine Angélica Granger P.A.-C. [address] [place] [phone] 07/17/2022 Appointment Laboratory Medicine Angélica Granger P.A.-C. [address] [place] [phone] 07/31/2022 Appointment Laboratory Medicine Angélica Granger P.A.-C. [address] [place] [address] [phone] 08/14/2022 Appointment Laboratory Medicine Angélica Granger P.A.-C. [address] [place] [address] [phone] 08/28/2022 Appointment Laboratory Medicine Angélica Granger P.A.-C. [address] [place] [phone] documented as of this encounter Visit Diagnoses Not on filedocumented in this encounter
--- OUTSIDE RECORDS SUMMARY | 2022-04-13 12:49 | XMS_ITS | Encounter Summary ---
:1955 Author Organization [facility] Address [address] [place] [address] Care Team Providers Name Role Phone Unavailable Primary Care Provider Unavailable Encounter Details Date Type Department Care Team Description 08/20/2011 Hospital Encounter HX NO MAPPING Social History [...] Date Recorded Male 05/16/2020 4:27 PM COMMUNICATIONS PROJECT MANAGER documented as of this encounter Last Filed Vital Signs Vital Sign Reading Time Taken Comments Blood Pressure - - Pulse 52 08/20/2011 10:02 PM COMMUNICATIONS PROJECT MANAGER Value fr om Chartplus. Temperature - - Respiratory Rate 12 08/20/2011 9:59 PM COMMUNICATIONS PROJECT MANAGER Value fr om [employer]. Oxygen Saturation - - Inhaled Oxygen Concentration - - Weight - - Height - - Body Mass Index - - documented in this encounter Plan of Treatment Upcoming Encounters Date Type Specialty Care Team Description 04/24/2022 Appointment Laboratory Medicine Angélica Granger P.A.-C. [address] [place] [phone] 04/25/2022 Office Visit Otorhinolaryngology Dex Matta APRN, C.N.P., M.S.N. [address] [place] [address] [phone] 05/08/2022 Appointment Laboratory Medicine Angélica Granger P.A.-CDemetrius [address] [place] [address] [phone] 05/08/2022 Clinical Admitting/Central Communication Scheduling 05/10/2022 Appointment Radiology Jeremie Rose M.D. [address] [place] [phone] 05/10/2022 Comprehensive Visit Orthopedic Surgery Warner Graves M.D. [address] [place] [phone] 05/22/2022 Appointment Laboratory Medicine Angélica Granger P.A.-CDemetrius [address] [place] [address] [phone] 06/05/2022 Appointment Laboratory Medicine Angélica Granger P.A.-CDemetrius [address] [place] [phone] 06/19/2022 Appointment Laboratory Medicine Angélica Granger P.A.-C. [address] [place] [phone] 07/03/2022 Appointment Laboratory Medicine Angélica Granger P.A.-C. [address] [place] [phone] 07/17/2022 Appointment Laboratory Medicine Angélica Granger P.A.-C. [address] [place] [phone] 07/31/2022 Appointment Laboratory Medicine Angélica Granger P.A.-C. [address] [place] [phone] 08/14/2022 Appointment Laboratory Medicine Angélica Granger P.A.-C. [address] [place] [phone] 08/28/2022 Appointment Laboratory Medicine Angélica Granger P.A.-C. [address] [place] [address] [phone] documented as of this encounter Procedures Procedure Name Priority Date/Time Associated Comments Diagnosis HX MICROBIOLOGY REPORTS Routine 08/20/2011 6:52 R esults for this PM COMMUNICATIONS PROJECT MANAGER procedure are i n the results section. MICROSCOPIC MANUAL Routine 08/20/2011 6:52 Result s for this PM COMMUNICATIONS PROJECT MANAGER procedure are i n the results section. GRAM'S ST, U Routine 08/20/2011 6:52 Results for this PM COMMUNICATIONS PROJECT MANAGER procedure are i n the results section. URINALYSIS WITH Routine 08/20/2011 6:52 Results f or this MICROSCOPIC PM COMMUNICATIONS PROJECT MANAGER procedure are i n the results section. HX MICROBIOLOGY REPORTS Routine 08/20/2011 6:44 R esults for this PM COMMUNICATIONS PROJECT MANAGER procedure are i n the results section. HX MICROBIOLOGY REPORTS Routine 08/20/2011 6:35 R esults for this PM COMMUNICATIONS PROJECT MANAGER procedure are i n the results section. INTERPRETATION OF Routine 08/20/2011 6:35 Results for this OUTSIDE DX ABDOMEN PM COMMUNICATIONS PROJECT MANAGER procedure are in the results section. ELECTROLYTE (CHEM 4) Routine 08/20/2011 6:35 Resu lts for this PANEL, S/P PM COMMUNICATIONS PROJECT MANAGER procedure are i n the results section. NT-PRO B-TYPE Routine 08/20/2011 6:35 Results for this NATRIURETIC PEPTIDE PM COMMUNICATIONS PROJECT MANAGER procedur e are in (BNP), S the results section. PROTHROMBIN TIME (PT), P Routine 08/20/2011 6:35 Results for this PM COMMUNICATIONS PROJECT MANAGER procedure are i n the results section. CBC WITH DIFFERENTIAL, B Routine 08/20/2011 6:35 Results for this PM COMMUNICATIONS PROJECT MANAGER procedure are i n the results section. ALANINE AMINOTRANSFERASE Routine 08/20/2011 6:35 Results for this (ALT), S/P PM COMMUNICATIONS PROJECT MANAGER procedure are i n the results section. ASPARTATE Routine 08/20/2011 6:35 Results for this AMINOTRANSFERASE (AST), PM COMMUNICATIONS PROJECT MANAGER proc edure are in S/P the results section. ALKALINE PHOSPHATASE, Routine 08/20/2011 6:35 Res ults for this S/P PM COMMUNICATIONS PROJECT MANAGER procedure are i n the results section. LIPASE, S/P Routine 08/20/2011 6:35 Results for this PM COMMUNICATIONS PROJECT MANAGER procedure are i n the results section. BILIRUBIN DIRECT, S/P Routine 08/20/2011 6:35 Res ults for this PM COMMUNICATIONS PROJECT MANAGER procedure are i n the results section. BILIRUBIN, TOT, S/P Routine 08/20/2011 6:35 Resul ts for this PM COMMUNICATIONS PROJECT MANAGER procedure are i n the results section. AMYLASE, TOT, S Routine 08/20/2011 6:35 Results f or this PM COMMUNICATIONS PROJECT MANAGER procedure are i n the results section. INTERPRETATION OF Routine 08/20/2011 6:33 Results for this OUTSIDE CT ABDOMEN AND PM COMMUNICATIONS PROJECT MANAGER proce dure are in OR PELVIS the results section. LACTATE, POCT, B Routine 08/20/2011 6:32 Results for this PM COMMUNICATIONS PROJECT MANAGER procedure are i n the results section. GLUCOSE POCT, B Routine 08/20/2011 6:32 Results f or this PM COMMUNICATIONS PROJECT MANAGER procedure are i n the results section. documented in this encounter Results Microbiology Reports (08/20/2011 6:52 PM COMMUNICATIONS PROJECT MANAGER) Specimen Anatomical Collection Method Collection Time Receive d Time (Source) Location / / Volume Laterality 08/20/2011 6:52 PM 2 6:52 COMMUNICATIONS PROJECT MANAGER PM COMMUNICATIONS PROJECT MANAGER Narrative [facility] - 08/22/2011 6:48 AM COMMUNICATIONS PROJECT MANAGER 20-AUG-2011 URINE, MIDSTREAM, ?SoftOrd# [id number] ?(Specimen Collected 18:52; Received 20-AUG-2011 20:41) ? Dept Lab Med Path ?Bacterial aerobic susceptibi lities requested. ?BACTERIAL CULTURE, AEROBIC, URI NE ? (Reported 22-AUG-2011 06:48) FINAL ?No Growth after 1 day of inc ubation. Procedure Note 10/01/2017 20-AUG-2011 URINE, MIDSTREAM, SoftOrd# [id number] (Specimen Collected 20-AUG-2011 18:52; Received 20-AUG-2011 20:41) Dept Lab Med Path Bacterial aerobic susceptibilities requ ested. BACTERIAL CULTURE, AEROBIC, URINE (Rep orted 22-AUG-2011 06:48) FINAL No Growth after 1 day of incubation. Thelma Freitas M.D., Ph.D. LAB MICROBIOLOGY - GENERA L ORDERABLES Performing Organization Address City/State/ZIP Code Phon e Number [facility] - [address] [place], [place] [address] [facility] Microscopic Manual (08/20/2011 6:52 PM COMMUNICATIONS PROJECT MANAGER) [facility] gist Method Time Signature Microscopy Normal [facility] Blood <3 <3; /HPF [facility] Casts, Hyaline 1-3 /LPF [facility] Specimen Anatomical Collection Method Collection Time Receive d Time (Source) Location / / Volume Laterality 08/20/2011 6:52 PM 2 6:52 COMMUNICATIONS PROJECT MANAGER PM COMMUNICATIONS PROJECT MANAGER Thelma Freitas M.D., Ph.D. LAB URINE ORDERABLES Performing Organization Address [facility] Phon e Number [place] [phone] [facility] Gram Stain, Urine (08/20/2011 6:52 PM COMMUNICATIONS PROJECT MANAGER) [facility] Method Time Signature Gram's Stain, Negative [facility] Screen, U [facility] Specimen Anatomical Collection Method Collection Time Receive d Time (Source) Location / / Volume Laterality 08/20/2011 6:52 PM 2 6:52 COMMUNICATIONS PROJECT MANAGER PM COMMUNICATIONS PROJECT MANAGER Thelma Freitas M.D., Ph.D. LAB URINE ORDERABLES Performing Organization Address City/[facility] Phon e Number [facility] [address] [place] [phone] [facility] (ABNORMAL) Urinalysis with Microscopic (08/20/2011 6:52 PM COMMUNICATIONS PROJECT MANAGER) [facility] Method Time Signature Glucose 10 <25; MG/DL [facility] Protein, U 34 MG/DL [facility] Hemoglobin, QL Negative Negative [facility] Osmolality, 24 762 150 - 1150 [facility] HR, U MOSM/KG [facility] Predicted 24 436 MG/24 H [facility] Hr Protein [facility] Predicted 139-1375 MG/24 H [facility] Range [facility] Source Midstream [facility] Appearance Normal Normal [facility] pH, 24 HR, U 7.4 4.5 - 8.0 [facility] Protein/Osmola 0.45 (H) <0.12 RATIO [facility] lity [facility] Specimen Anatomical Collection Method Collection Time Receive d Time (Source) Location / / Volume Laterality 08/20/2011 6:52 PM 2 6:52 COMMUNICATIONS PROJECT MANAGER PM COMMUNICATIONS PROJECT MANAGER Thelma Freitas M.D., Ph.D. LAB URINE ORDERABLES Performing Organization Address City/State/[facility] Code Phon e Number [facility] - [address] [place] [address] [facility] Microbiology Reports (08/20/2011 6:44 PM COMMUNICATIONS PROJECT MANAGER) Specimen Anatomical Collection Method Collection Time Receive d Time (Source) Location / / Volume Laterality 08/20/2011 6:44 PM 201 2 6:44 COMMUNICATIONS PROJECT MANAGER PM COMMUNICATIONS PROJECT MANAGER Narrative [facility] - 08/25/2011 11:30 PM COMMUNICATIONS PROJECT MANAGER 20-AUG-2011 BLOOD, ? SoftOrd# [id number] ?(Specimen Collected 18:44; Received 20-AUG-2011 19:57) ? Dept Lab Med Path ?BACTERIA/MARRY CULTURE, BLOOD ? (Reported 25-AUG-2011 23:30) FINAL ?No growth after 5 days of in cubation. Procedure Note 10/01/2017 20-AUG-2011 BLOOD, SoftOrd# [id number] (Specimen Collected 20-AUG-2011 18:44; Received 20-AUG-2011 19:57) Dept Lab Med Path BACTERIA/MARRY CULTURE, BLOOD (Repor onel 25-AUG-2011 23:30) FINAL No growth after 5 days of incubation. Thelma Freitas M.D., Ph.D. LAB MICROBIOLOGY - GENERA L ORDERABLES Performing Organization Address City/State/[facility] Code Phon e Number [facility] - [address] [place], [place] [address] [facility] Microbiology Reports (08/20/2011 6:35 PM COMMUNICATIONS PROJECT MANAGER) Specimen Anatomical Collection Method Collection Time Receive d Time (Source) Location / / Volume Laterality 08/20/2011 6:35 PM 08/20/201 2 6:36 COMMUNICATIONS PROJECT MANAGER PM COMMUNICATIONS PROJECT MANAGER Narrative [facility] - 08/25/2011 11:30 PM COMMUNICATIONS PROJECT MANAGER 20-AUG-2011 BLOOD, ? SoftOrd# [id number] ?(Specimen Collected 18:35; Received 20-AUG-2011 20:04) ? Dept Lab Med Path ?BACTERIA/MARRY CULTURE, BLOOD ? (Reported 25-AUG-2011 23:30) FINAL ?No growth after 5 days of in cubation. Procedure Note 10/01/2017 20-AUG-2011 BLOOD, SoftOrd# [id number] (Specimen Collected 20-AUG-2011 18:35; Received 20-AUG-2011 20:04) Dept Lab Med Path BACTERIA/MARRY CULTURE, BLOOD (Repor onel 25-AUG-2011 23:30) FINAL No growth after 5 days of incubation. Thelma Freitas M.D., Ph.D. LAB MICROBIOLOGY - GENERA L ORDERABLES Performing Organization Address City/State/ZIP Code Phon e Number [facility] - [address] [place], [place] [address] [facility] (ABNORMAL) CBC with Differential (08/20/2011 6:35 PM COMMUNICATIONS PROJECT MANAGER) [facility] Method Time Signature Hemoglobin 12.9 (L) 13.5 - [facility] 17.5 G/DL [facility] Hematocrit 38.5 (L) 38.8 - [facility] 50.0 % [facility] RBC Distrib 12.3 11.8 - [facility] Width 15.6 % LABORATORIES - [facility] Platelet Count 215 150 - 450 [facility] X10(9)/L LAB[facility]ATORIES - [facility] Leukocytes 13.2 (H) 3.5 - [facility] 10.5 LABORATORIES - X10(9)/L [facility] Neutrophils 9.98 (H) 1.70 - [facility] 7.00 LABORATORIES - X10(9)/L [facility] Lymphocytes 1.75 0.90 - [facility] 2.90 LABORATORIES - X10(9)/L [facility] Monocytes 1.33 (H) 0.30 - [facility] 0.90 LABORATORIES - X10(9)/L [facility] Erythrocytes 4.22 (L) 4.32 - [facility] 5.72 LABORATORIES - X10(12)/L [facility] MCV 91.2 81.2 - [facility] 95.1 FL LABORATORIES - [facility] Eosinophils 0.10 0.05 - [facility] 0.50 LABORATORIES - X10(9)/L [facility] Basophils 0.02 0.00 - [facility] 0.30 LABORATORIES - X10(9)/L [facility] Specimen Anatomical Collection Method Collection Time Receive d Time (Source) Location / / Volume Laterality 08/20/2011 6:35 PM 2 6:35 COMMUNICATIONS PROJECT MANAGER PM COMMUNICATIONS PROJECT MANAGER Thelma Freitas M.D., Ph.D. LAB BLOOD ADD-ON Performing Organization Address City/[facility] Phon e Number [facility] LABOR[facility]IES - [address] [place] [phone] [facility] Bilirubin, Direct (08/20/2011 6:35 PM COMMUNICATIONS PROJECT MANAGER) P athologist Signature Bilirubin, 0.2 0.0 - 0.3 [facility] Direct, P MG/DL LABORATORIES - [facility] Specimen Anatomical Collection Method Collection Time Receive d Time (Source) Location / / Volume Laterality 08/20/2011 6:35 PM 2 6:35 COMMUNICATIONS PROJECT MANAGER PM COMMUNICATIONS PROJECT MANAGER Thelma Freitas M.D., Ph.D. LAB BLOOD ADD-ON Performing Organization Address City/[facility] Phon e Number [facility]IES - [address] [place] [address] [facility] NT-Pro B-Type Natriuretic Peptide (BNP) (08/20/2011 6:35 PM COMMUNICATIONS PROJECT MANAGER) P athologist Signature NT-Pro BNP 61 5 - 70 [facility] PG/ML [facility] Comment: NT-proBNP values less than 300 pg/mL hav e a 99% negative predictive value ? for excluding acute congestive heart jennifer lure. A cutoff of 1200 pg/mL for ? patients with an eGFR<60 yields a diagno stic sensitivity and specificity of ? 89% and 72% for acute congestive heart f ailure. ??A diagnostic NT-proBNP ? cutoff of 900 pg/mL has been suggested i n adults over 50 years of age in the ? absence of renal failure. ? Specimen Anatomical Collection Method Collection Time Receive d Time (Source) Location / / Volume Laterality 08/20/2011 6:35 PM 2 6:35 COMMUNICATIONS PROJECT MANAGER PM COMMUNICATIONS PROJECT MANAGER Thelma Freitas M.D., Ph.D. LAB BLOOD ADD-ON Performing Organization Address City/State/ZIP Code Phon e Number [facility]IES - [address] [place] [address] [facility] ALT (Alanine Aminotransferase) (08/20/2011 6:35 PM COMMUNICATIONS PROJECT MANAGER) [facility] Method Time Signature Alanine 25 7 - 55 [facility] Aminotransferase U/L LABORATORIES - (ALT), S [facility] Specimen Anatomical Collection Method Collection Time Receive d Time (Source) Location / / Volume Laterality 08/20/2011 6:35 PM 2 6:35 COMMUNICATIONS PROJECT MANAGER PM COMMUNICATIONS PROJECT MANAGER Thelma Freitas M.D., Ph.D. LAB BLOOD ADD-ON Performing Organization Address City/[facility]/ZIP Code Phon e Number [facility] LAB[facility]IES - [address] [place] [phone] [facility] Lipase (08/20/2011 6:35 PM COMMUNICATIONS PROJECT MANAGER) P athologist Signature Lipase, S 10 10 - 73 U/L [facility] Specimen Anatomical Collection Method Collection Time Receive d Time (Source) Location / / Volume Laterality 08/20/2011 6:35 PM 2 6:35 COMMUNICATIONS PROJECT MANAGER PM COMMUNICATIONS PROJECT MANAGER Thelma Freitas M.D., Ph.D. LAB BLOOD ADD-ON Performing Organization Address City/[facility]/ZIP Code Phon e Number [facility]IES - [address] [place] [address] [facility] (ABNORMAL) Amylase, Total (08/20/2011 6:35 PM COMMUNICATIONS PROJECT MANAGER) [facility] Method Time Signature Amylase, 190 (H) 26 - 102 [facility] Total, S U/L LABORATORIES - [facility] Specimen Anatomical Collection Method Collection Time Receive d Time (Source) Location / / Volume Laterality 08/20/2011 6:35 PM 2 6:35 COMMUNICATIONS PROJECT MANAGER PM COMMUNICATIONS PROJECT MANAGER Thelma Freitas M.D., Ph.D. LAB BLOOD ADD-ON Performing Organization Address City/[facility]/ZIP Code Phon e Number [facility]IES - [address] [place] [address] [facility] PT (Prothrombin Time) with INR (08/20/2011 6:35 PM COMMUNICATIONS PROJECT MANAGER) [facility] Method Time Signature Prothrombin 11.8 9.5 - 13.8 [facility] Time, P SEC LABORATORIES - [facility] INR 1.1 0.8 - 1.2 [facility] - [facility] Specimen Anatomical Collection Method Collection Time Receive d Time (Source) Location / / Volume Laterality 08/20/2011 6:35 PM 2 6:35 COMMUNICATIONS PROJECT MANAGER PM COMMUNICATIONS PROJECT MANAGER Thelma Freitas M.D., Ph.D. LAB BLOOD ADD-ON Performing Organization Address City/[facility]/ZIP Code Phon e Number [facility]IES - [address] [place] [phone] [facility] (ABNORMAL) Electrolyte (Chem 4) Panel (08/20/2011 6:35 PM COMMUNICATIONS PROJECT MANAGER) [facility] Method Time Signature Creatinine 1.3 0.8 - 1.3 [facility] MG/DL LAB[facility]ATORIES - [facility] eGFR 57 (L) >60 [facility] Non-Black/Afric ML/MIN/BS LABORATORIES - Martiniquais A [facility] Chloride, S 99 (L) 100 - 108 [facility] MMOL/L LAB[facility]IES - [facility] BUN (Blood Urea 33 (H) 8 - 24 [facility] Nitrogen), S MG/DL [facility] - [facility] Sodium, P 132 (L) 135 - 145 [facility] MMOL/L LAB[facility]IES - [facility] Potassium, P 4.3 3.6 - 5.2 [facility] MMOL/L LAB[facility]IES - [facility] HX Bicarbonate, 20 (L) 22 - 29 [facility] P/S MMOL/L LAB[facility]IES - [facility] Glucose, S 134 70 - 140 [facility] MG/DL LAB[facility]IES - [facility] eGFR-Black/Afri >60 >60 [facility] can Martiniquais ML/MIN/BS LABORATORIES - A [facility] Specimen Anatomical Collection Method Collection Time Receive d Time (Source) Location / / Volume Laterality 08/20/2011 6:35 PM 2 6:35 COMMUNICATIONS PROJECT MANAGER PM COMMUNICATIONS PROJECT MANAGER Thelma Freitas M.D., Ph.D. LAB BLOOD ADD-ON Performing Organization Address City/State/ZIP Code Phon e Number [facility] LAB[facility]IES - [address] [place] [address] [facility] Alkaline Phosphatase (08/20/2011 6:35 PM COMMUNICATIONS PROJECT MANAGER) athologist Signature Alkaline 80 45 - 115 [facility] Phosphatase, S U/L [facility]IES - [facility] Specimen Anatomical Collection Method Collection Time Receive d Time (Source) Location / / Volume Laterality 08/20/2011 6:35 PM 2 6:35 COMMUNICATIONS PROJECT MANAGER PM COMMUNICATIONS PROJECT MANAGER Thelma Freitas M.D., Ph.D. LAB BLOOD ADD-ON Performing Organization Address City/State/ZIP Code Phon e Number [facility] LAB[facility]IES - [address] [place] [address] [facility] AST (Aspartate Aminotransferase) (08/20/2011 6:35 PM COMMUNICATIONS PROJECT MANAGER) [facility] Method Time Signature Aspartate 28 8 - 48 [facility] Aminotransferase U/L LABORATORIES - (AST), [facility] Specimen Anatomical Collection Method Collection Time Receive d Time (Source) Location / / Volume Laterality 08/20/2011 6:35 PM 2 6:35 COMMUNICATIONS PROJECT MANAGER PM COMMUNICATIONS PROJECT MANAGER Thelma Freitas M.D., Ph.D. LAB BLOOD ADD-ON Performing Organization Address City/State/ZIP Code Phon e Number [facility]IES - [address] [place] [address] [facility] (ABNORMAL) Bilirubin, Total (08/20/2011 6:35 PM COMMUNICATIONS PROJECT MANAGER) [facility] Method Time Signature Bilirubin, 1.1 (H) 0.1 - 1.0 [facility] Total, P MG/DL LABORATORIES [facility] Specimen Anatomical Collection Method Collection Time Receive d Time (Source) Location / / Volume Laterality 08/20/2011 6:35 PM 2 6:35 COMMUNICATIONS PROJECT MANAGER PM COMMUNICATIONS PROJECT MANAGER Thelma Freitas M.D., Ph.D. LAB BLOOD ADD-ON Performing Organization Address City/State/ZIP Code Phon e Number [facility]IES - [address] [place] [address] [facility] Interpretation of Outside DX Abdomen (08/20/2011 6:35 PM COMMUNICATIONS PROJECT MANAGER) Anatomical Region Laterality Modality N/A Radiographic Imaging Specimen (Source) Anatomical Collection Method Collection Time Re ceived Time Location / / Volume Laterality 08/20/2011 6:35 PM COMMUNICATIONS PROJECT MANAGER Narrative 08/20/2011 7:03 PM COMMUNICATIONS PROJECT MANAGER 20-Aug-2011 18:35:00 ??Exam: Interp of OS XR Abdomen Indications: RUQ pain ORIGINAL REPORT - 20-Aug-2011 19:03:00 Outside abdominal films dated 08-16-11 sh ow a moderate amount of stool in the right colon. Normal bowel gas pattern. No free air. Degenerative changes lumbar spine. (08-20-11) Electronically signed by: ?? Char Hernández MD. ??[id number] 20-Aug-2011 19: 03 Procedure Note Ángel Hernández M.D. - 09/20/2017Formatti ng of this note might be different from the original. 20-Aug-2011 18:35:00 Exam: Interp of OS XR Abdomen Indications: RUQ pain ORIGINAL REPORT - 20-Aug-2011 19:03:00 Outside abdominal films dated 08-16-11 sh ow a moderate amount of stool in the right colon. Normal bowel gas pattern. No free air. Degenerative changes lumbar spine. (08-20-11) Electronically signed by: Char Hernández [place]. [id number] 20-Aug-2011 19:03 Thelma Freitas M.D., Ph.D. IMG DIAGNOST[facility] [place] [facility] Interpretation of Outside CT Abdomen and or Pelvis (08/20/2011 6:33 PM COMMUNICATIONS PROJECT MANAGER) Anatomical Region Laterality Modality Abdomen, Pelvis N/A Computed Tomography Specimen (Source) Anatomical Collection Method Collection Time Re ceived Time Location / / Volume Laterality 08/20/2011 6:33 PM COMMUNICATIONS PROJECT MANAGER Narrative 08/20/2011 7:03 PM COMMUNICATIONS PROJECT MANAGER 20-Aug-2011 18:33:00 ??Exam: Interp of OS CT Abd and or Pel Indications: RUQ pain ORIGINAL REPORT - 20-Aug-2011 19:03:[address] of the abdomen and pelvis wit h IV contrast material dated 08-19-11: Changes of previous liver transplantation. The liver is normal in appearance. No intrahepatic bile duct dilatation. The extr ahepatic bile ducts are normal in calibe r. Mild soft tissue stranding in the raffi hepatis is likely postoperative. 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 Minimal vascular calcification. (08-20-11) Electronically signed by: ?? Char Hernández MD. ??[id number] 20-Aug-2011 19: 03 Procedure Note Ángel Hernández M.D. - 09/20/2017Formatti ng of this note might be different from the original. 20-Aug-2011 18:33:00 Exam: Interp of OS CT Abd and or Pel Indications: RUQ pain ORIGINAL REPORT - 20-Aug-2011 19:03:[address] of the abdomen and pelvis wit h IV contrast material dated 08-19-11: Changes of previous liver transplantation. The liver is normal in appearance. No intrahepatic bile duct dilatation. The extrahepatic bile ducts are normal in caliber. Mild soft t issue stranding in the raffi hepatis is likely postoperative. 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 Minimal vascular calcification. (08-20-11) Electronically signed by: Char Hernández MD. [id number] 20-Aug-2011 19:03 Thelma Freitas M.D., Ph.D. IMG CT PROCEDURES (ABNORMAL) Glucose, POCT (08/20/2011 6:32 PM COMMUNICATIONS PROJECT MANAGER) [facility] Method Time Signature Glucose, POCT, 149 (H) 70 - 140 [facility] B MG/DL LABORATORIES - [facility] Sample Site, Venstick [facility] Blood Gas, LABORATORIES - POCT [facility] Specimen Anatomical Collection Method Collection Time Receive d Time (Source) Location / / Volume Laterality 08/20/2011 6:32 PM 2 6:32 COMMUNICATIONS PROJECT MANAGER PM COMMUNICATIONS PROJECT MANAGER Historical Provider LAB POCT ORDERABLES-MANUAL Performing Organization Address City/[facility] Phon e Number [facility] LABORATORIES - [address] Lactate, POCT (08/20/2011 6:32 PM COMMUNICATIONS PROJECT MANAGER) [facility] Method Time Signature Lactate, POCT 1.60 0.60 - [facility] 2.30 LABORATORIES - MMOL/L [facility] Sample Site, Venstick [facility] POCT LABORATORIES - [facility] Specimen Anatomical Collection Method Collection Time Receive d Time (Source) Location / / Volume Laterality 08/20/2011 6:32 PM 2 6:32 COMMUNICATIONS PROJECT MANAGER PM COMMUNICATIONS PROJECT MANAGER Historical Provider LAB POCT ORDERABLES - DEVICE Performing Organization Address [facility] Phon e Number [facility] LABORATORIES - [address] documented in this encounter Visit Diagnoses Not on filedocumented in this encounter
--- OUTSIDE RECORDS SUMMARY | 2022-04-13 12:49 | XMS_ITS | Encounter Summary ---
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 [address] [place] [phone] 04/25/2022 Office Visit Otorhinolaryngology Dex Matta APRN, C.N.P., M.S.N. [address] [place] [address] [phone] 05/08/2022 Appointment Laboratory Medicine Angélica Granger P.A.-C. [address] [place] [phone] 05/08/2022 Clinical Admitting/Central Communication Scheduling 05/10/2022 Appointment Radiology Jeremie Rose M.D. [address] [place] [phone] 05/10/2022 Comprehensive Visit Orthopedic Surgery Warner Graves M.D. [address] [place] [phone] 05/22/2022 Appointment Laboratory Medicine Angélica Granger P.A.-C. [address] [place] [phone] 06/05/2022 Appointment Laboratory Medicine Angélica Granger P.A.-C. [address] [place] [phone] 06/19/2022 Appointment Laboratory Medicine Angélica Granger P.A.-C. [address] [place] [phone] 07/03/2022 Appointment Laboratory Medicine Angélica Granger P.A.-C. [address] [place] [phone] 07/17/2022 Appointment Laboratory Medicine Angélica Granger P.A.-C. [address] [place] [phone] 07/31/2022 Appointment Laboratory Medicine Angélica Granger P.A.-C. [address] [place] [phone] 08/14/2022 Appointment Laboratory Medicine Angélica Granger P.A.-C. [address] [place] [address] [phone] 08/28/2022 Appointment Laboratory Medicine Angélica Granger P.A.-C. [address] [place] [phone] documented as of this encounter Visit Diagnoses Not on filedocumented in this encounter
--- OUTSIDE RECORDS SUMMARY | 2022-04-13 12:49 | XMS_ITS | Encounter Summary ---
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 [address] [place] [phone] 04/25/2022 Office Visit Otorhinolaryngology Dex Matta APRN, C.N.P., M.S.N. [address] [place] [address] [phone] 05/08/2022 Appointment Laboratory Medicine Angélica Granger P.A.-C. [address] [place] [phone] 05/08/2022 Clinical Admitting/Central Communication Scheduling 05/10/2022 Appointment Radiology Jeremie Rose M.D. [address] [place] [phone] 05/10/2022 Comprehensive Visit Orthopedic Surgery Warner Graves M.D. [address] [place] [phone] 05/22/2022 Appointment Laboratory Medicine Angélica Granger P.A.-C. [address] [place] [phone] 06/05/2022 Appointment Laboratory Medicine Angélica Granger P.A.-C. [address] [place] [phone] 06/19/2022 Appointment Laboratory Medicine Angélica Granger P.A.-C. [address] [place] [phone] 07/03/2022 Appointment Laboratory Medicine Angélica Granger P.A.-C. [address] [place] [phone] 07/17/2022 Appointment Laboratory Medicine Angélica Granger P.A.-C. [address] [place] [phone] 07/31/2022 Appointment Laboratory Medicine Angélica Granger P.A.-C. [address] [place] [phone] 08/14/2022 Appointment Laboratory Medicine Angélica Granger P.A.-C. [address] [place] [phone] 08/28/2022 Appointment Laboratory Medicine Angélica Granger P.A.-C. [address] [place] [phone] documented as of this encounter Procedures Procedure Name Priority Date/Time Associated Diagnosis Comme nts DX CHEST AP OR PA Routine 08/19/2002 11:58 AM Res ults for this AND LATERAL 2 VIEWS DIRECTOR CENTER procedur e are in the results section. documented in this encounter Results DX Chest AP or PA and Lateral 2 Views (08/19/2002 11:58 AM DIRECTOR CENTER) Anatomical Region Laterality Modality Chest N/A Radiographic Imaging Specimen (Source) Anatomical Collection Method Collection Time Re ceived Time Location / / Volume Laterality 08/19/2002 11:58 AM DIRECTOR CENTER Narrative 08/19/2002 12:37 PM DIRECTOR CENTER 19-Aug-2002 11:58:00 ??Exam: Chest-- 2 Views Indications: cirrhosis liver without eto h ORIGINAL REPORT - 19-Aug-2002 12:37:00 Old fracture right clavicle. Chest other sierra negative. No change since 09-24-99. Electronically signed by: ?? Clementina Schulte MD. ??[phone] 19-Aug-19 03 12:37 Procedure Note Nicholas Schulte M.D. - 8 19-Aug-2002 11:58:00 Exam: Chest-- 2 Vie ws Indications: cirrhosis liver without eto h ORIGINAL REPORT - 19-Aug-2002 12:37:00 Old fracture right clavicle. Chest other sierra negative. No change since 09-24-99. Electronically signed by: Clementina Schulte MD. [id number] 19-Aug-2002 12:37 Santana Patterson M.D. IMAutumn DIAGNOSTIC IMAGING PROCE DURES documented in this encounter Visit Diagnoses Not on filedocumented in this encounter
--- OUTSIDE RECORDS SUMMARY | 2022-04-13 12:49 | XMS_ITS | Encounter Summary ---
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 [address] [place] [phone] 04/25/2022 Office Visit Otorhinolaryngology Dex Matta APRN, C.N.P., M.S.N. [address] [place] [address] [phone] 05/08/2022 Appointment Laboratory Medicine Angélica Granger P.A.-C. [address] [place] [address] [phone] 05/08/2022 Clinical Admitting/Central Communication Scheduling 05/10/2022 Appointment Radiology Jeremie Rose M.D. [address] [place] [phone] 05/10/2022 Comprehensive Visit Orthopedic Surgery Warner Graves M.D. [address] [place] [address] [phone] 05/22/2022 Appointment Laboratory Medicine Angélica Granger P.A.-CDemetrius [address] [place] [address] [phone] 06/05/2022 Appointment Laboratory Medicine Angélica Granger P.A.-CDemetrius [address] [place] [address] [phone] 06/19/2022 Appointment Laboratory Medicine Angélica Granger P.A.-C. [address] [place] [phone] 07/03/2022 Appointment Laboratory Medicine Angélica Granger P.A.-C. [address] [place] [phone] 07/17/2022 Appointment Laboratory Medicine Angélica Granger P.A.-C. [address] [place] [phone] 07/31/2022 Appointment Laboratory Medicine Angélica Granger P.A.-C. [address] [place] [phone] 08/14/2022 Appointment Laboratory Medicine Angélica Granger P.A.-C. [address] [place] [phone] 08/28/2022 Appointment Laboratory Medicine Angélica Granger P.A.-C. [address] [place] [phone] documented as of this encounter Visit Diagnoses Not on filedocumented in this encounter Additional Health Concerns Infection Onset Date Last Indicated Resolved Time COVID19 Pending 12/13/2019 12/13/2019 12/14/2019 11:03 AM CDT COVID19 Pending 01/26/2020 01/27/2020 01/28/2020 12:12 AM CDT documented as of this encounter Care Teams Web Engineer Relationship Specialty Start Date End Date Elsewhere, Pcp PCP - General Family Medicine 07/29/17 [facility] - Laboratory Medicine 04/12/[address] [address] documented as of this encounter
--- OUTSIDE RECORDS SUMMARY | 2022-04-13 12:49 | XMS_ITS | Encounter Summary ---
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 [address] [place] [phone] 04/25/2022 Office Visit Otorhinolaryngology Dex Matta APRN, C.N.P., M.S.N. [address] [place] [address] [phone] 05/08/2022 Appointment Laboratory Medicine Angélica Granger P.A.-C. [address] [place] [phone] 05/08/2022 Clinical Admitting/Central Communication Scheduling 05/10/2022 Appointment Radiology Jeremie Rose M.D. [address] [place] [phone] 05/10/2022 Comprehensive Visit Orthopedic Surgery Warner Graves M.D. [address] [place] [phone] 05/22/2022 Appointment Laboratory Medicine Angélica Granger P.A.-C. [address] [place] [phone] 06/05/2022 Appointment Laboratory Medicine Angélica Granger P.A.-C. [address] [place] [phone] 06/19/2022 Appointment Laboratory Medicine Angélica Granger P.A.-C. [address] [place] [phone] 07/03/2022 Appointment Laboratory Medicine Angélica Granger P.A.-C. [address] [place] [phone] 07/17/2022 Appointment Laboratory Medicine Angélica Granger P.A.-C. [address] [place] [phone] 07/31/2022 Appointment Laboratory Medicine Angélica Granger P.A.-C. [address] [place] [phone] 08/14/2022 Appointment Laboratory Medicine Angélica Granger P.A.-C. [address] [place] [address] [phone] 08/28/2022 Appointment Laboratory Medicine Angélica Granger P.A.-C. [address] [place] [phone] documented as of this encounter Visit Diagnoses Not on filedocumented in this encounter
--- OUTSIDE RECORDS SUMMARY | 2022-04-13 12:49 | XMS_ITS | Encounter Summary ---
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 [address] [place] [phone] 04/25/2022 Office Visit Otorhinolaryngology Dex Matta APRN, C.N.P., M.S.N. [address] [place] [address] [phone] 05/08/2022 Appointment Laboratory Medicine Angélica Granger P.A.-C. [address] [place] [address] [phone] 05/08/2022 Clinical Admitting/Central Communication Scheduling 05/10/2022 Appointment Radiology Jeremie Rose M.D. [address] [place] [phone] 05/10/2022 Comprehensive Visit Orthopedic Surgery Warner Graves M.D. [address] [place] [address] [phone] 05/22/2022 Appointment Laboratory Medicine Angélica Granger P.A.-CDemetrius [address] [place] [address] [phone] 06/05/2022 Appointment Laboratory Medicine Angélica Granger P.A.-CDemetrius [address] [place] [address] [phone] 06/19/2022 Appointment Laboratory Medicine Angélica Granger P.A.-C. [address] [place] [phone] 07/03/2022 Appointment Laboratory Medicine Angélica Granger P.A.-C. [address] [place] [phone] 07/17/2022 Appointment Laboratory Medicine Angélica Granger P.A.-C. [address] [place] [phone] 07/31/2022 Appointment Laboratory Medicine Angélica Granger P.A.-C. [address] [place] [phone] 08/14/2022 Appointment Laboratory Medicine Angélica Granger P.A.-C. [address] [place] [phone] 08/28/2022 Appointment Laboratory Medicine Angélica Granger P.A.-C. [address] [place] [phone] documented as of this encounter Visit Diagnoses Not on filedocumented in this encounter Additional Health Concerns Infection Onset Date Last Indicated Resolved Time COVID19 Pending 12/13/2019 12/13/2019 12/14/2019 11:03 AM CDT COVID19 Pending 01/26/2020 01/27/2020 01/28/2020 12:12 AM CDT documented as of this encounter Care Teams Steam Train Driver Relationship Specialty Start Date End Date Elsewhere, Pcp PCP - General Family Medicine 07/29/[address] [facility] - Laboratory Medicine 04/12/[address] [address] documented as of this encounter
--- OUTSIDE RECORDS SUMMARY | 2022-04-13 12:49 | XMS_ITS | Encounter Summary ---
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 [address] [place] [phone] 04/25/2022 Office Visit Otorhinolaryngology Dex Matta APRN, C.N.P., M.S.N. [address] [place] [address] [phone] 05/08/2022 Appointment Laboratory Medicine Angélica Granger P.A.-C. [address] [place] [phone] 05/08/2022 Clinical Admitting/Central Communication Scheduling 05/10/2022 Appointment Radiology Jeremie Rose M.D. [address] [place] [phone] 05/10/2022 Comprehensive Visit Orthopedic Surgery Warner Graves M.D. [address] [place] [phone] 05/22/2022 Appointment Laboratory Medicine Angélica Granger P.A.-C. [address] [place] [phone] 06/05/2022 Appointment Laboratory Medicine Angélica Granger P.A.-C. [address] [place] [phone] 06/19/2022 Appointment Laboratory Medicine Angélica Granger P.A.-C. [address] [place] [phone] 07/03/2022 Appointment Laboratory Medicine Angélica Granger P.A.-C. [address] [place] [phone] 07/17/2022 Appointment Laboratory Medicine Angélica Granger P.A.-C. [address] [place] [phone] 07/31/2022 Appointment Laboratory Medicine Angélica Granger P.A.-C. [address] [place] [phone] 08/14/2022 Appointment Laboratory Medicine Angélica Granger P.A.-C. [address] [place] [address] [phone] 08/28/2022 Appointment Laboratory Medicine Angélica Granger P.A.-C. [address] [place] [phone] documented as of this encounter Visit Diagnoses Not on filedocumented in this encounter
--- OUTSIDE RECORDS SUMMARY | 2022-04-13 12:49 | XMS_ITS | Encounter Summary ---
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 [address] [place] [address] [phone] 04/25/2022 Office Visit Otorhinolaryngology Dex Matta APRN, C.N.P., M.S.N. [address] [place] [phone] 05/08/2022 Appointment Laboratory Medicine Angélica Granger P.A.-C. [address] [place] [phone] 05/08/2022 Clinical Admitting/Central Communication Scheduling 05/10/2022 Appointment Radiology Jeremie Rose M.D. [address] [place] [phone] 05/10/2022 Comprehensive Visit Orthopedic Surgery Warner Graves M.D. [address] [place] [phone] 05/22/2022 Appointment Laboratory Medicine Angélica Granger P.A.-C. [address] [place] [phone] 06/05/2022 Appointment Laboratory Medicine Angélica Granger P.A.-C. [address] [place] [phone] 06/19/2022 Appointment Laboratory Medicine Angélica Granger P.A.-C. [address] [place] [phone] 07/03/2022 Appointment Laboratory Medicine Angélica Granger P.A.-C. [address] [place] [phone] 07/17/2022 Appointment Laboratory Medicine Angélica Granger P.A.-C. [address] [place] [phone] 07/31/2022 Appointment Laboratory Medicine Angélica Granger P.A.-C. [address] [place] [phone] 08/14/2022 Appointment Laboratory Medicine Angélica Granger P.A.-C. [address] [place] [phone] 08/28/2022 Appointment Laboratory Medicine Angélica Granger P.A.-C. [address] [place] [phone] documented as of this encounter Visit Diagnoses Not on filedocumented in this encounter
--- OUTSIDE RECORDS SUMMARY | 2022-04-13 12:49 | XMS_ITS | Encounter Summary ---
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 [address] [place] [phone] 04/25/2022 Office Visit Otorhinolaryngology Dex Matta APRN, C.N.P., M.S.N. [address] [place] [address] [phone] 05/08/2022 Appointment Laboratory Medicine Angélica Granger P.A.-C. [address] [place] [address] [phone] 05/08/2022 Clinical Admitting/Central Communication Scheduling 05/10/2022 Appointment Radiology Jeremie Rose M.D. [address] [place] [phone] 05/10/2022 Comprehensive Visit Orthopedic Surgery Warner Graves M.D. [address] [place] [address] [phone] 05/22/2022 Appointment Laboratory Medicine Angélica Granger P.A.-CDemetrius [address] [place] [address] [phone] 06/05/2022 Appointment Laboratory Medicine Angélica Granger P.A.-CDemetrius [address] [place] [address] [phone] 06/19/2022 Appointment Laboratory Medicine Angélica Granger P.A.-C. [address] [place] [phone] 07/03/2022 Appointment Laboratory Medicine Angélica Granger P.A.-C. [address] [place] [phone] 07/17/2022 Appointment Laboratory Medicine Angélica Granger P.A.-C. [address] [place] [phone] 07/31/2022 Appointment Laboratory Medicine Angélica Granger P.A.-C. [address] [place] [phone] 08/14/2022 Appointment Laboratory Medicine Angélica Granger P.A.-C. [address] [place] [phone] 08/28/2022 Appointment Laboratory Medicine Angélica Granger P.A.-C. [address] [place] [phone] documented as of this encounter Visit Diagnoses Not on filedocumented in this encounter Additional Health Concerns Infection Onset Date Last Indicated Resolved Time COVID19 Pending 12/13/2019 12/13/2019 12/14/2019 11:03 AM CDT COVID19 Pending 01/26/2020 01/27/2020 01/28/2020 12:12 AM CDT documented as of this encounter Care Teams Manager Cosmetics Relationship Specialty Start Date End Date Elsewhere, Pcp PCP - General Family Medicine 07/29/17 [facility] - Laboratory Medicine 04/12/[address] [address] documented as of this encounter
--- OUTSIDE RECORDS SUMMARY | 2022-04-13 12:49 | XMS_ITS | Encounter Summary ---
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 [address] [place] [phone] 04/25/2022 Office Visit Otorhinolaryngology Dex Matta APRN, C.N.P., M.S.N. [address] [place] [address] [phone] 05/08/2022 Appointment Laboratory Medicine Angélica Granger P.A.-C. [address] [place] [phone] 05/08/2022 Clinical Admitting/Central Communication Scheduling 05/10/2022 Appointment Radiology Jeremie Rose M.D. [address] [place] [phone] 05/10/2022 Comprehensive Visit Orthopedic Surgery Warner Graves M.D. [address] [place] [phone] 05/22/2022 Appointment Laboratory Medicine Angélica Granger P.A.-C. [address] [place] [phone] 06/05/2022 Appointment Laboratory Medicine Angélica Granger P.A.-C. [address] [place] [phone] 06/19/2022 Appointment Laboratory Medicine Angélica Granger P.A.-C. [address] [place] [phone] 07/03/2022 Appointment Laboratory Medicine Angélica Granger P.A.-C. [address] [place] [phone] 07/17/2022 Appointment Laboratory Medicine Angélica Granger P.A.-C. [address] [place] [phone] 07/31/2022 Appointment Laboratory Medicine Angélica Granger P.A.-C. [address] [place] [phone] 08/14/2022 Appointment Laboratory Medicine Angélica Granger P.A.-C. [address] [place] [phone] 08/28/2022 Appointment Laboratory Medicine Angélica Granger P.A.-C. [address] [place] [phone] documented as of this encounter Procedures Procedure Name Priority Date/Time Associated Diagnosis Comme nts US ABDOMEN COMPLETE Routine 08/18/2002 8:02 AM Re sults for this WITH LIVER DOPPLER TRIMMING OPERATOR procedure are in the results section. documented in this encounter Results US Abdomen and Abdomen Doppler (08/18/2002 8:02 AM TRIMMING OPERATOR) Anatomical Region Laterality Modality Abdomen N/A Ultrasound Specimen (Source) Anatomical Collection Method Collection Time Re ceived Time Location / / Volume Laterality 08/18/2002 8:02 AM TRIMMING OPERATOR Narrative 08/18/2002 10:20 AM TRIMMING OPERATOR 18-Aug-2002 08:02:00 ??Exam: US Abd Cmpl with Doppler Cmpl Indications: unspecified disorder of rina er; s/p OLT for cryptogenic cirrhosis; 3 year evaluation ORIGINAL REPORT - 18-Aug-2002 10:20:00 Hepatic transplant appears unremarkable. ??Hepatic arteries, portal veins, hepatic veins, and the IVC at the level of the liver all patent with appropriate waveforms. ??No ascites. ??Spleen size within normal limits. ??Kidneys are negative fo r hydronephrosis with the left measuring 11.8cm, right measuring 11.5cm [id number]. ??Slight ectasia of the distal abdominal aorta with the upper aorta measurin g 1.9cm and the distal abdominal measuri ng 2.2cm. ??No significant change since 06-02-01. Ultrasound Electronic Images Only. No Fi lms Made. Ind: [phone] ?? [email or web address] ?? Electronically signed by: ?? Dorene Gordon MD. ??[id number] 18-Aug-2002 10:20 Procedure Note Otoniel Gordon M.D. - 09/24/2017Formatti ng of this note might be different from the original. 18-Aug-2002 08:02:00 Exam: US Abd Cmpl w ith Doppler Cmpl Indications: unspecified disorder of rina er; s/p OLT for cryptogenic cirrhosis; 3 year evaluation ORIGINAL REPORT - 18-Aug-2002 10:20:00 Hepatic transplant appears unremarkable. Hepatic arteries, portal veins, hepatic veins, and the IVC at the level of the liver all patent with appropriate waveforms. No ascites. Spleen size within normal limits. Kidneys are negative for hydronephrosis with the left measuring 11.8cm, right measuring 11.5cm [id number]. Slight ectasia of the distal abdominal aorta with the upper aorta measuring 1.9cm and the distal abdominal measuring 2.2cm. No significan t change since 06-02-01. Ultrasound Electronic Images Only. No Fi lms Made. Ind: [phone] [email or web address] Electronically signed by: Dorene Gordon MD. [id number] 18-Aug-2002 10:20 Santana HEREDIA US PROCEDURES documented in this encounter Visit Diagnoses Not on filedocumented in this encounter
--- OUTSIDE RECORDS SUMMARY | 2022-04-13 12:49 | XMS_ITS | Encounter Summary ---
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 [address] [place] [phone] 04/25/2022 Office Visit Otorhinolaryngology Dex Matta APRN, C.N.P., M.S.N. [address] [place] [address] [phone] 05/08/2022 Appointment Laboratory Medicine Angélica Granger P.A.-C. [address] [place] [phone] 05/08/2022 Clinical Admitting/Central Communication Scheduling 05/10/2022 Appointment Radiology Jeremie Rose M.D. [address] [place] [phone] 05/10/2022 Comprehensive Visit Orthopedic Surgery Warner Graves M.D. [address] [place] [phone] 05/22/2022 Appointment Laboratory Medicine Angélica Granger P.A.-C. [address] [place] [phone] 06/05/2022 Appointment Laboratory Medicine Angélica Granger P.A.-C. [address] [place] [phone] 06/19/2022 Appointment Laboratory Medicine Angélica Granger P.A.-C. [address] [place] [phone] 07/03/2022 Appointment Laboratory Medicine Angélica Granger P.A.-C. [address] [place] [phone] 07/17/2022 Appointment Laboratory Medicine Angélica Granger P.A.-C. [address] [place] [phone] 07/31/2022 Appointment Laboratory Medicine Angélica Granger P.A.-C. [address] [place] [phone] 08/14/2022 Appointment Laboratory Medicine Angélica Granger P.A.-C. [address] [place] [address] [phone] 08/28/2022 Appointment Laboratory Medicine Angélica Granger P.A.-C. [address] [place] [phone] documented as of this encounter Visit Diagnoses Not on filedocumented in this encounter
--- OUTSIDE RECORDS SUMMARY | 2022-04-13 12:49 | XMS_ITS | Encounter Summary ---
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 [address] [place] [phone] 04/25/2022 Office Visit Otorhinolaryngology Dex Matta APRN, C.N.P., M.S.N. [address] [place] [address] [phone] 05/08/2022 Appointment Laboratory Medicine Angélica Granger P.A.-C. [address] [place] [address] [phone] 05/08/2022 Clinical Admitting/Central Communication Scheduling 05/10/2022 Appointment Radiology Jeremie Rose M.D. [address] [place] [phone] 05/10/2022 Comprehensive Visit Orthopedic Surgery Warner Graves M.D. [address] [place] [address] [phone] 05/22/2022 Appointment Laboratory Medicine Angélica Granger P.A.-CDemetrius [address] [place] [address] [phone] 06/05/2022 Appointment Laboratory Medicine Angélica Granger P.A.-CDemetrius [address] [place] [address] [phone] 06/19/2022 Appointment Laboratory Medicine Angélica Granger P.A.-C. [address] [place] [phone] 07/03/2022 Appointment Laboratory Medicine Angélica Granger P.A.-C. [address] [place] [phone] 07/17/2022 Appointment Laboratory Medicine Angélica Granger P.A.-C. [address] [place] [phone] 07/31/2022 Appointment Laboratory Medicine Angélica Granger P.A.-C. [address] [place] [phone] 08/14/2022 Appointment Laboratory Medicine Angélica Granger P.A.-C. [address] [place] [phone] 08/28/2022 Appointment Laboratory Medicine Angélica Granger P.A.-C. [address] [place] [phone] documented as of this encounter Visit Diagnoses Not on filedocumented in this encounter Additional Health Concerns Infection Onset Date Last Indicated Resolved Time COVID19 Pending 12/13/2019 12/13/2019 12/14/2019 11:03 AM CDT COVID19 Pending 01/26/2020 01/27/2020 01/28/2020 12:12 AM CDT documented as of this encounter Care Teams Lens And Frames Prescription Clerk Relationship Specialty Start Date End Date Elsewhere, Pcp PCP - General Family Medicine 07/29/17 [facility] - Laboratory Medicine 04/12/[address] [address] documented as of this encounter
--- OUTSIDE RECORDS SUMMARY | 2022-04-13 12:49 | XMS_ITS | Encounter Summary ---
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 [address] [place] [phone] 04/25/2022 Office Visit Otorhinolaryngology Dex Matta APRN, C.N.P., M.S.N. [address] [place] [address] [phone] 05/08/2022 Appointment Laboratory Medicine Angélica Granger P.A.-C. [address] [place] [address] [phone] 05/08/2022 Clinical Admitting/Central Communication Scheduling 05/10/2022 Appointment Radiology Jeremie Rose M.D. [address] [place] [phone] 05/10/2022 Comprehensive Visit Orthopedic Surgery Warner Graves M.D. [address] [place] [address] [phone] 05/22/2022 Appointment Laboratory Medicine Angélica Granger P.A.-CDemetrius [address] [place] [address] [phone] 06/05/2022 Appointment Laboratory Medicine Angélica Granger P.A.-CDemetrius [address] [place] [address] [phone] 06/19/2022 Appointment Laboratory Medicine Angélica Granger P.A.-C. [address] [place] [phone] 07/03/2022 Appointment Laboratory Medicine Angélica Granger P.A.-C. [address] [place] [phone] 07/17/2022 Appointment Laboratory Medicine Angélica Granger P.A.-C. [address] [place] [phone] 07/31/2022 Appointment Laboratory Medicine Angélica Granger P.A.-C. [address] [place] [phone] 08/14/2022 Appointment Laboratory Medicine Angélica Granger P.A.-C. [address] [place] [phone] 08/28/2022 Appointment Laboratory Medicine Angélica Granger P.A.-C. [address] [place] [phone] documented as of this encounter Visit Diagnoses Not on filedocumented in this encounter Additional Health Concerns Infection Onset Date Last Indicated Resolved Time COVID19 Pending 12/13/2019 12/13/2019 12/14/2019 11:03 AM CDT COVID19 Pending 01/26/2020 01/27/2020 01/28/2020 12:12 AM CDT documented as of this encounter Care Teams Junior Java Developer Relationship Specialty Start Date End Date Elsewhere, Pcp PCP - General Family Medicine 07/29/17 [facility] - Laboratory Medicine 04/12/[address] [address] documented as of this encounter
--- OUTSIDE RECORDS SUMMARY | 2022-04-13 12:49 | XMS_ITS | Encounter Summary ---
:1955 Author Organization 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 [address] [place] [phone] 04/25/2022 Office Visit Otorhinolaryngology Dex Matta APRN, C.N.P., M.S.N. [address] [place] [address] [phone] 05/08/2022 Appointment Laboratory Medicine Angélica Granger P.A.-C. [address] [place] [address] [phone] 05/08/2022 Clinical Admitting/Central Communication Scheduling 05/10/2022 Appointment Radiology Jeremie Rose M.D. [address] [place] [phone] 05/10/2022 Comprehensive Visit Orthopedic Surgery Warner Graves M.D. [address] [place] [address] [phone] 05/22/2022 Appointment Laboratory Medicine Angélica Gragner P.A.-CDemetrius [address] [place] [address] [phone] 06/05/2022 Appointment Laboratory Medicine Angélica Granger P.A.-CDemetrius [address] [place] [address] [phone] 06/19/2022 Appointment Laboratory Medicine Angélica Granger P.A.-C. [address] [place] [phone] 07/03/2022 Appointment Laboratory Medicine Angélica Granger P.A.-C. [address] [place] [phone] 07/17/2022 Appointment Laboratory Medicine Angélica Granger P.A.-C. [address] [place] [phone] 07/31/2022 Appointment Laboratory Medicine Angélica Granger P.A.-C. [address] [place] [phone] 08/14/2022 Appointment Laboratory Medicine Angélica Granger P.A.-C. [address] [place] [phone] 08/28/2022 Appointment Laboratory Medicine Angélica Granger P.A.-C. [address] [place] [phone] documented as of this encounter Visit Diagnoses Not on filedocumented in this encounter Additional Health Concerns Infection Onset Date Last Indicated Resolved Time COVID19 Pending 12/13/2019 12/13/2019 12/14/2019 11:03 AM CDT COVID19 Pending 01/26/2020 01/27/2020 01/28/2020 12:12 AM CDT documented as of this encounter Care Teams Hold Worker Relationship Specialty Start Date End Date Elsewhere, Pcp PCP - General Family Medicine 07/29/17 [facility] - Laboratory Medicine 04/12/[address] [address] documented as of this encounter
--- OUTSIDE RECORDS SUMMARY | 2022-04-13 12:49 | XMS_ITS | Encounter Summary ---
:1955 Author Organization [facility] Address [address] [place] [address] Care Team Providers Name Role Phone Unavailable Primary Care Provider Unavailable Encounter Details Date Type Department Care Team Description 08/20/2011 - Hospital Encounter HX RST UNIT 10-2 08/22/2011 TRANSPLANT Social History Tobacco Use Types Packs/Day [...] Date Recorded Male 05/16/2020 4:27 PM PLANT ATTENDANT OR ASSISTANT OPERATOR documented as of this encounter Last Filed Vital Signs Vital Sign Reading Time Taken Comments Blood Pressure 122/62 08/22/2011 8:09 AM NIBP - Value from [facility] [employer]. Pulse 59 08/22/2011 8:09 AM Value from [employer]. PLANT ATTENDANT OR ASSISTANT OPERATOR Temperature - - Respiratory Rate 18 08/22/2011 5:55 AM Value from C [employer]. PLANT ATTENDANT OR ASSISTANT OPERATOR Oxygen Saturation - - Inhaled Oxygen - - Concentration Weight 90.4 kg (199 lb 4.7 08/22/2011 6:03 AM oz) PLANT ATTENDANT OR ASSISTANT OPERATOR Height 177 cm (5' 9.69) 08/20/2011 10:22 PM PLANT ATTENDANT OR ASSISTANT OPERATOR Body Mass Index 28.86 08/20/2011 10:22 PM PLANT ATTENDANT OR ASSISTANT OPERATOR documented in this encounter Plan of Treatment Upcoming Encounters Date Type Specialty Care Team Description 04/24/2022 Appointment Laboratory Medicine Angélica Granger, P.A.-C. [address] [place] [phone] 04/25/2022 Office Visit Otorhinolaryngology Dex Matta APRN, C.N.P., M.S.N. [address] [place] [phone] 05/08/2022 Appointment Laboratory Medicine Angélica Granger, P.A.-C. [address] [place] [phone] 05/08/2022 Clinical Admitting/Central Communication Scheduling 05/10/2022 Appointment Radiology Jeremie Rose M.D. [address] [place] [phone] 05/10/2022 Comprehensive Visit Orthopedic Surgery Warner Graves M.D. [address] [place] [phone] 05/22/2022 Appointment Laboratory Medicine Angélica Granger P.A.-C. [address] [place] [phone] 06/05/2022 Appointment Laboratory Medicine Angélica Granger P.A.-C. [address] [place] [phone] 06/19/2022 Appointment Laboratory Medicine Angélica Granger P.A.-C. [address] [place] [phone] 07/03/2022 Appointment Laboratory Medicine Angélica Granger P.A.-C. [address] [place] [phone] 07/17/2022 Appointment Laboratory Medicine Angélica Granger P.A.-C. [address] [place] [phone] 07/31/2022 Appointment Laboratory Medicine Angélica Granger P.A.-C. [address] [place] [phone] 08/14/2022 Appointment Laboratory Medicine Angélica Granger P.A.-C. [address] [place] [phone] 08/28/2022 Appointment Laboratory Medicine Angélica Granger P.A.-C. [address] [place] [phone] documented as of this encounter Procedures Procedure Name Priority Date/Time Associated Comments Diagnosis ELECTROLYTE (CHEM 4) Routine 08/22/2011 5:16 Resu lts for this PANEL, S/P AM PLANT ATTENDANT OR ASSISTANT OPERATOR procedure are i n the results section. TACROLIMUS LEVEL, B Routine 08/22/2011 5:16 Resul ts for this AM PLANT ATTENDANT OR ASSISTANT OPERATOR procedure are i n the results section. CBC WITH DIFFERENTIAL, B Routine 08/22/2011 5:16 Results for this AM PLANT ATTENDANT OR ASSISTANT OPERATOR procedure are i n the results section. ALANINE AMINOTRANSFERASE Routine 08/22/2011 5:16 Results for this (ALT), S/P AM PLANT ATTENDANT OR ASSISTANT OPERATOR procedure are i n the results section. ASPARTATE Routine 08/22/2011 5:16 Results for this AMINOTRANSFERASE (AST), AM PLANT ATTENDANT OR ASSISTANT OPERATOR proc edure are in S/P the results section. ALKALINE PHOSPHATASE, Routine 08/22/2011 5:16 Res ults for this S/P AM PLANT ATTENDANT OR ASSISTANT OPERATOR procedure are i n the results section. BILIRUBIN DIRECT, S/P Routine 08/22/2011 5:16 Res ults for this AM PLANT ATTENDANT OR ASSISTANT OPERATOR procedure are i n the results section. BILIRUBIN, TOT, S/P Routine 08/22/2011 5:16 Resul ts for this AM PLANT ATTENDANT OR ASSISTANT OPERATOR procedure are i n the results section. US ABDOMEN LIMITED PLUS Routine 08/21/2011 10:56 Results for this ABDOMEN DOPPLER AM PLANT ATTENDANT OR ASSISTANT OPERATOR procedure ar e in the results section. D-DIMER, P Routine 08/21/2011 7:21 Results for this AM PLANT ATTENDANT OR ASSISTANT OPERATOR procedure are i n the results section. CYTOMEGALOVIRUS PCR Routine 08/21/2011 7:21 Resul ts for this AM PLANT ATTENDANT OR ASSISTANT OPERATOR procedure are i n the results section. THYROID FUNCTION Routine 08/21/2011 7:21 Results for this CASCADE, S AM PLANT ATTENDANT OR ASSISTANT OPERATOR procedure are i n the results section. MAGNESIUM, S Routine 08/21/2011 7:21 Results for this AM PLANT ATTENDANT OR ASSISTANT OPERATOR procedure are i n the results section. LIPASE, S/P Routine 08/21/2011 7:21 Results for this AM PLANT ATTENDANT OR ASSISTANT OPERATOR procedure are i n the results section. LACTATE DEHYDROGENASE Routine 08/21/2011 7:21 Res ults for this (LD), S AM PLANT ATTENDANT OR ASSISTANT OPERATOR procedure are i n the results section. CALCIUM, TOT, S/P Routine 08/21/2011 7:21 Results for this AM PLANT ATTENDANT OR ASSISTANT OPERATOR procedure are i n the results section. ELECTROLYTE (CHEM 4) Routine 08/21/2011 5:07 Resu lts for this PANEL, S/P AM PLANT ATTENDANT OR ASSISTANT OPERATOR procedure are i n the results section. TACROLIMUS LEVEL, B Routine 08/21/2011 5:07 Resul ts for this AM PLANT ATTENDANT OR ASSISTANT OPERATOR procedure are i n the results section. PROTHROMBIN TIME (PT), P Routine 08/21/2011 5:07 Results for this AM PLANT ATTENDANT OR ASSISTANT OPERATOR procedure are i n the results section. CBC WITH DIFFERENTIAL, B Routine 08/21/2011 5:07 Results for this AM PLANT ATTENDANT OR ASSISTANT OPERATOR procedure are i n the results section. C-REACTIVE PROTEIN Routine 08/21/2011 5:07 Result s for this (CRP), S/P AM PLANT ATTENDANT OR ASSISTANT OPERATOR procedure are i n the results section. ALANINE AMINOTRANSFERASE Routine 08/21/2011 5:07 Results for this (ALT), S/P AM PLANT ATTENDANT OR ASSISTANT OPERATOR procedure are i n the results section. ASPARTATE Routine 08/21/2011 5:07 Results for this AMINOTRANSFERASE (AST), AM PLANT ATTENDANT OR ASSISTANT OPERATOR proc edure are in S/P the results section. ALKALINE PHOSPHATASE, Routine 08/21/2011 5:07 Res ults for this S/P AM PLANT ATTENDANT OR ASSISTANT OPERATOR procedure are i n the results section. BILIRUBIN DIRECT, S/P Routine 08/21/2011 5:07 Res ults for this AM PLANT ATTENDANT OR ASSISTANT OPERATOR procedure are i n the results section. BILIRUBIN, TOT, S/P Routine 08/21/2011 5:07 Resul ts for this AM PLANT ATTENDANT OR ASSISTANT OPERATOR procedure are i n the results section. US ABDOMEN COMPLETE WITH Routine 08/20/2011 9:07 Results for this LIVER DOPPLER PM PLANT ATTENDANT OR ASSISTANT OPERATOR procedure are in the results section. documented in this encounter Results (ABNORMAL) Electrolyte (Chem 4) Panel (08/22/2011 5:16 AM PLANT ATTENDANT OR ASSISTANT OPERATOR) [facility] gist Method Time Signature Sodium, S 134 (L) 135 - 145 [facility] MMOL/L [facility] Potassium, S 4.3 3.6 - 5.2 [facility] MMOL/L [facility] eGFR-Black/Afri >60 >60 [facility] can Tristanian ML/MIN/BS LABORATORIES - A [facility] BUN (Blood Urea 31 (H) 8 - 24 [facility] Nitrogen), S MG/DL [facility] Chloride, S 101 100 - 108 [facility] MMOL/L [facility] HX Bicarbonate, 22 22 - 29 [facility] P/S MMOL/L [facility] Creatinine 1.3 0.8 - 1.3 [facility] MG/DL [facility] eGFR 57 (L) >60 [facility] Non-Black/Afric ML/MIN/BS LABORATORIES - an Tristanian A [facility] Anion Gap 11 7 - 15 [facility] Glucose, S 134 70 - 140 [facility] MG/DL [facility] Specimen Anatomical Collection Method Collection Time Receive d Time (Source) Location / / Volume Laterality 08/22/2011 5:16 AM 2 5:16 PLANT ATTENDANT OR ASSISTANT OPERATOR AM PLANT ATTENDANT OR ASSISTANT OPERATOR Leonid Gonzalez M.D. LAB BLOOD ADD-ON Performing Organization Address City/State/ZIP Code Phon e Number [facility] LABORATORIES - [address] [place], [place] [address] [facility] (ABNORMAL) CBC with Differential (08/22/2011 5:16 AM PLANT ATTENDANT OR ASSISTANT OPERATOR) [facility] Method Time Signature Hemoglobin 10.8 (L) 13.5 - [facility] 17.5 G/DL LABORATORIES - [facility] Hematocrit 32.0 (L) 38.8 - [facility] 50.0 % LABORATORIES - [facility] RBC Distrib 12.4 11.8 - [facility] Width 15.6 % LABORATORIES - [facility] Platelet Count 191 150 - 450 [facility] X10(9)/L LABORATORIES - [facility] Lymphocytes 2.02 0.90 - [facility] 2.90 LABORATORIES - X10(9)/L [facility] Monocytes 1.31 (H) 0.30 - [facility] 0.90 LABORATORIES - X10(9)/L [facility] Erythrocytes 3.54 (L) 4.32 - [facility] 5.72 LABORATORIES - X10(12)/L [facility] MCV 90.4 81.2 - [facility] 95.1 FL LABORATORIES - [facility] Leukocytes 11.8 (H) 3.5 - [facility] 10.5 LABORATORIES - X10(9)/L [facility] Neutrophils 8.10 (H) 1.70 - [facility] 7.00 LABORATORIES - X10(9)/L [facility] Eosinophils 0.34 0.05 - [facility] 0.50 LABORATORIES - X10(9)/L [facility] Basophils 0.02 0.00 - [facility] 0.30 LABORATORIES - X10(9)/L [facility] Specimen Anatomical Collection Method Collection Time Receive d Time (Source) Location / / Volume Laterality 08/22/2011 5:16 AM 2 5:16 PLANT ATTENDANT OR ASSISTANT OPERATOR AM PLANT ATTENDANT OR ASSISTANT OPERATOR Leonid Gonzalez M.D. LAB BLOOD ADD-ON Performing Organization Address City/State/ZIP Code Phon e Number [facility] LAB[facility]ATORIES - [address] [place], [place] [address] [facility] Bilirubin, Total (08/22/2011 5:16 AM PLANT ATTENDANT OR ASSISTANT OPERATOR) P athologist Signature Bilirubin, 0.6 0.1 - 1.0 [facility] Total, S MG/DL [facility] Specimen Anatomical Collection Method Collection Time Receive d Time (Source) Location / / Volume Laterality 08/22/2011 5:16 AM 2 5:16 PLANT ATTENDANT OR ASSISTANT OPERATOR AM PLANT ATTENDANT OR ASSISTANT OPERATOR Leonid Gonzalez M.D. LAB BLOOD ADD-ON Performing Organization Address City/[facility] Phon e Number [facility] - [address] [place] [address] [facility] Alkaline Phosphatase (08/22/2011 5:16 AM PLANT ATTENDANT OR ASSISTANT OPERATOR) athologist Signature Alkaline 95 45 - 115 [facility] Phosphatase, S U/L [facility] Specimen Anatomical Collection Method Collection Time Receive d Time (Source) Location / / Volume Laterality 08/22/2011 5:16 AM 2 5:16 PLANT ATTENDANT OR ASSISTANT OPERATOR AM PLANT ATTENDANT OR ASSISTANT OPERATOR Leonid Gonzalez M.D. LAB BLOOD ADD-ON Performing Organization Address City/[facility]/ZIP Code Phon e Number [facility] - [address] [address] [facility] AST (Aspartate Aminotransferase) (08/22/2011 5:16 AM PLANT ATTENDANT OR ASSISTANT OPERATOR) P athologist Signature AST, Total, S 46 8 - 48 U/L [facility] Specimen Anatomical Collection Method Collection Time Receive d Time (Source) Location / / Volume Laterality 08/22/2011 5:16 AM 2 5:16 PLANT ATTENDANT OR ASSISTANT OPERATOR AM PLANT ATTENDANT OR ASSISTANT OPERATOR Loenid Gonzalez M.D. LAB BLOOD ADD-ON Performing Organization Address City/[facility] Phon e Number [facility] - [address] [address] [facility] Tacrolimus Level (08/22/2011 5:16 AM PLANT ATTENDANT OR ASSISTANT OPERATOR) Analysis Performed At [facility]o [facility] Tacrolimus Time . [facility] of Last Dose [facility] Comment: Not Specified Tacrolimus Blood Dose, mg . [facility] Comment: Not Specified Tacrolimus, B 5.2 5.0-15.0 (Trough) NG/ML [facility] Tacrolimus Blood Date of . [facility] Last Dose [facility] Comment: Not Specified Specimen Anatomical Collection Method Collection Time Receive d Time (Source) Location / / Volume Laterality 08/22/2011 5:16 AM 2 5:16 PLANT ATTENDANT OR ASSISTANT OPERATOR AM PLANT ATTENDANT OR ASSISTANT OPERATOR Leonid Gonzalez M.D. LAB BLOOD NON ADD-ON Performing Organization Address City/[facility]/ZIP Code Phon e Number [facility] LABORATORIES - [address] [address] [facility] ALT (Alanine Aminotransferase) (08/22/2011 5:16 AM PLANT ATTENDANT OR ASSISTANT OPERATOR) Patholo gist Method Time Signature Alanine 46 7 - 55 [facility] Aminotransferase U/L LABORATORIES - (ALT), S [facility] Specimen Anatomical Collection Method Collection Time Receive d Time (Source) Location / / Volume Laterality 08/22/2011 5:16 AM 2 5:16 PLANT ATTENDANT OR ASSISTANT OPERATOR AM PLANT ATTENDANT OR ASSISTANT OPERATOR Leonid Gonzalez M.D. LAB BLOOD ADD-ON Performing Organization Address City/[facility]/ZIP [facility] Phon e Number [facility]IES - [address] [address] [facility] Bilirubin, Direct (08/22/2011 5:16 AM PLANT ATTENDANT OR ASSISTANT OPERATOR) P athologist Signature Bilirubin, 0.2 0.0 - 0.3 [facility] Direct, S MG/DL LABORATORIES - [facility] Specimen Anatomical Collection Method Collection Time Receive d Time (Source) Location / / Volume Laterality 08/22/2011 5:16 AM 2 5:16 PLANT ATTENDANT OR ASSISTANT OPERATOR AM PLANT ATTENDANT OR ASSISTANT OPERATOR Leonid Gonzalez M.D. LAB BLOOD ADD-ON Performing Organization Address City/[facility] Phon e Number [facility]ATORIES - [address] US Abdomen Limited plus Abdomen Doppler (08/21/2011 10:56 AM PLANT ATTENDANT OR ASSISTANT OPERATOR) Anatomical Region Laterality Modality Abdomen N/A Ultrasound Specimen (Source) Anatomical Collection Method Collection Time Re ceived Time Location / / Volume Laterality 08/21/2011 10:56 AM PLANT ATTENDANT OR ASSISTANT OPERATOR Narrative 08/21/2011 11:20 AM PLANT ATTENDANT OR ASSISTANT OPERATOR 21-Aug-2011 10:56:00 ??Exam: US Abd Lmtd with Doppler Cmpl Indications: [id number]; [id number]; liver t x; abnl ultrasound with doppler ORIGINAL REPORT - 21-Aug-2011 11:20:00 US Abdomen Limited with color and spectr al Doppler analysis: Ultrasound of the Liver Transplant and A bdomen with Doppler: ?? Liver transplant:.... ??Normal parenchym a. Gallbladder:...........Absent. Bile ducts:............Not dilated. Doppler:...............Intrahepatic dada rial flow not identified and the main hepatic artery was not well seen, similar to the ultrasound examination yesterday. Further evaluation of the arterial supply with CT angiography might be helpful. T he hepatic and portal veins and IVC negative. Electronically signed by: ?? Char Thompson MD. ??[phone] 21-Aug-2011 11:20 Procedure Note Alan Thompson M.B., Sada Del Rosario - 09/20 21-Aug-2011 10:56:00 Exam: US Abd Lmtd w ith Doppler [facility] Indications: [id number]; [id number]; liver t x; abnl ultrasound with doppler ORIGINAL REPORT - 21-Aug-2011 11:20:00 US Abdomen Limited with color and spectr al Doppler analysis: Ultrasound of the Liver Transplant and A bdomen with Doppler: Liver transplant:.... Normal parenchyma. Gallbladder:...........Absent. Bile ducts:............Not dilated. Doppler:...............Intrahepatic dada rial flow not identified and the main hepatic artery was not well seen, similar to the ultrasound examination yesterday. Further evaluation of the arterial supply with CT angiography might be helpful. The hepati c and portal veins and IVC negative. Electronically signed by: Char Thompson MD. [id number] 21-Aug-2011 11:20 Tiffanie Wan M.D. [facility] US PROCEDURES Cytomegalovirus PCR (08/21/2011 7:21 AM PLANT ATTENDANT OR ASSISTANT OPERATOR) [facility] Method Time Signature Cytomegalovirus None None [facility] PCR, Quant, P [facility] Comment: Analyte Specific Reagent. This test was developed and its performance ? characteristics determined by [facility]. It has not been cleared or ? approved by the U.S. Food and Drug Admin istration. ? Specimen Anatomical Collection Method Collection Time Receive d Time (Source) Location / / Volume Laterality 08/21/2011 7:21 AM 2 7:21 PLANT ATTENDANT OR ASSISTANT OPERATOR AM PLANT ATTENDANT OR ASSISTANT OPERATOR Leonid Gonzalez M.D. LAB MICROBIOLOGY - GENERAL O RDERABLES Performing Organization Address City/[facility] Code Phon e Number [facility]ATORIES - [address] [place] [address] [facility] Magnesium (08/21/2011 7:21 AM PLANT ATTENDANT OR ASSISTANT OPERATOR) P athologist Signature Magnesium, S 2.0 1.7 - 2.3 [facility] MG/DL [facility] Specimen Anatomical Collection Method Collection Time Receive d Time (Source) Location / / Volume Laterality 08/21/2011 7:21 AM 2 7:21 PLANT ATTENDANT OR ASSISTANT OPERATOR AM PLANT ATTENDANT OR ASSISTANT OPERATOR Leonid Gonzalez M.D. LAB BLOOD ADD-ON Performing Organization Address [facility] Phon e Number [facility] - [address] [place] [address] [facility] Thyroid Function [place] (08/21/2011 7:21 AM PLANT ATTENDANT OR ASSISTANT OPERATOR) P athologist Signature TSH, Sensitive 3.2 0.3 - 5.0 [facility] MIU/L [facility] Specimen Anatomical Collection Method Collection Time Receive d Time (Source) Location / / Volume Laterality 08/21/2011 7:21 AM 2 7:21 PLANT ATTENDANT OR ASSISTANT OPERATOR AM PLANT ATTENDANT OR ASSISTANT OPERATOR Leonid Gonzalez M.D. LAB BLOOD ADD-ON Performing Organization Address City/[facility]/ZIP Code Phon e Number [facility]IES - [address] [place] [address] [facility] (ABNORMAL) Lipase (08/21/2011 7:21 AM PLANT ATTENDANT OR ASSISTANT OPERATOR) P athologist Signature Lipase, S <10 (L) 10 - 73 [facility] U/L LABORATORIES - [facility] Specimen Anatomical Collection Method Collection Time Receive d Time (Source) Location / / Volume Laterality 08/21/2011 7:21 AM 2 7:21 PLANT ATTENDANT OR ASSISTANT OPERATOR AM PLANT ATTENDANT OR ASSISTANT OPERATOR Leonid Gonzalez M.D. LAB BLOOD ADD-ON Performing Organization Address City/[facility] Code Phon e Number [facility]IES - [address] [place] [address] [facility] D-Dimer, Plasma (08/21/2011 7:21 AM PLANT ATTENDANT OR ASSISTANT OPERATOR) Patholo gist Method Time Signature Fibrinogen 0.24 <=0.50 [facility] Equivalent FEU/ML LABORATORIES - Units (FEU) [facility] D-Dimer, P 120 SeeComment [facility] NG/ML LABORATORIES - [facility] Comment: Reference Range: ? <=250 ? The stated reference value is ? the cutoff to use D-Dimer for ? exclusion of deep vein ? thrombosis and/or pulmonary ? embolism. ? Specimen Anatomical Collection Method Collection Time Receive d Time (Source) Location / / Volume Laterality 08/21/2011 7:21 AM 2 7:21 PLANT ATTENDANT OR ASSISTANT OPERATOR AM PLANT ATTENDANT OR ASSISTANT OPERATOR Leonid Gonzalez M.D. LAB BLOOD NON ADD-ON Performing Organization Address City/[facility] Code Phon e Number [facility]IES - [address] [place] [address] [facility] LD (Lactate Dehydrogenase) (08/21/2011 7:21 AM PLANT ATTENDANT OR ASSISTANT OPERATOR) Patholo gist Method Time Signature Lactate 131 122 - 222 [facility] Dehydrogenase U/L LABORATORIES - (LD), S [facility] Specimen Anatomical Collection Method Collection Time Receive d Time (Source) Location / / Volume Laterality 08/21/2011 7:21 AM 2 7:21 PLANT ATTENDANT OR ASSISTANT OPERATOR AM PLANT ATTENDANT OR ASSISTANT OPERATOR Leonid Gonzalez M.D. LAB BLOOD NON ADD-ON Performing Organization Address City/[facility] Code Phon e Number [facility]IES - [address] [place] [address] [facility] Calcium, Total (08/21/2011 7:21 AM PLANT ATTENDANT OR ASSISTANT OPERATOR) P athologist Signature Calcium, 9.0 8.9 - 10.1 [facility] Total, S MG/DL LABORATORIES - [facility] Specimen Anatomical Collection Method Collection Time Receive d Time (Source) Location / / Volume Laterality 08/21/2011 7:21 AM 2 7:21 PLANT ATTENDANT OR ASSISTANT OPERATOR AM PLANT ATTENDANT OR ASSISTANT OPERATOR Leonid Gonzalez M.D. LAB BLOOD ADD-ON Performing Organization Address City/[facility] Code Phon e Number [facility]IES - [address] [place] [address] [facility] Bilirubin, Direct (08/21/2011 5:07 AM PLANT ATTENDANT OR ASSISTANT OPERATOR) P athologist Signature Bilirubin, 0.3 0.0 - 0.3 [facility] Direct, S MG/DL LABORATORIES - [facility] Specimen Anatomical Collection Method Collection Time Receive d Time (Source) Location / / Volume Laterality 08/21/2011 5:07 AM 2 5:07 PLANT ATTENDANT OR ASSISTANT OPERATOR AM PLANT ATTENDANT OR ASSISTANT OPERATOR Leonid Gonzalez M.D. LAB BLOOD ADD-ON Performing Organization Address City/[facility] Phon e Number [facility]IES - [address] [place], [place] [address] [facility] (ABNORMAL) Tacrolimus Level (08/21/2011 5:07 AM PLANT ATTENDANT OR ASSISTANT OPERATOR) [facility] Method Time Signature Tacrolimus, B 4.9 (L) 5.0-15.0 [facility] (Trough) LABORATORIES - NG/ML [facility] Tacrolimus . [facility] Blood Date of LABORATORIES - Last Dose [facility] Comment: Not Specified Tacrolimus Time of Last Dose . [facility] LABORATORIES [facility] Comment: Not Specified Tacrolimus Blood Dose, mg . [facility] LABORATORIES - [facility] Comment: Not Specified Specimen Anatomical Collection Method Collection Time Receive d Time (Source) Location / / Volume Laterality 08/21/2011 5:07 AM 2 5:07 PLANT ATTENDANT OR ASSISTANT OPERATOR AM PLANT ATTENDANT OR ASSISTANT OPERATOR Leonid Gonzalez M.D. LAB BLOOD NON ADD-ON Performing Organization Address City/[facility] Phon e Number [facility]IES - [address] [address] [facility] (ABNORMAL) Electrolyte (Chem 4) Panel (08/21/2011 5:07 AM PLANT ATTENDANT OR ASSISTANT OPERATOR) [facility] Method Time Signature Sodium, S 135 135 - 145 [facility] MMOL/L [facility] Potassium, S 4.3 3.6 - 5.2 [facility] MMOL/L LABORATORIES - [facility] Creatinine 1.4 (H) 0.8 - 1.3 [facility] MG/DL LABORATORIES - [facility] eGFR 52 (L) >60 [facility] Non-Black/Afric ML/MIN/BS LABORATORIES - Tristanian A [facility] Anion Gap 11 7 - 15 [facility] LABORATORIES - [facility] Glucose, S 131 70 - 140 [facility] MG/DL LABORATORIES - [facility] Chloride, S 101 100 - 108 [facility] MMOL/L LABORATORIES - [facility] HX Bicarbonate, 23 22 - 29 [facility] P/S MMOL/L LABORATORIES - [facility] eGFR-Black/Afri >60 >60 [facility] can Tristanian ML/MIN/BS LABORATORIES - A [facility] BUN (Blood Urea 36 (H) 8 - 24 [facility] Nitrogen), S MG/DL LABORATORIES - [facility] Specimen Anatomical Collection Method Collection Time Receive d Time (Source) Location / / Volume Laterality 08/21/2011 5:07 AM 2 5:07 PLANT ATTENDANT OR ASSISTANT OPERATOR AM PLANT ATTENDANT OR ASSISTANT OPERATOR Leonid Gonzalez M.D. LAB BLOOD ADD-ON Performing Organization Address City/[facility]/ZIP [facility] Phon e Number [facility] - [address] [address] [facility] Bilirubin, Total (08/21/2011 5:07 AM PLANT ATTENDANT OR ASSISTANT OPERATOR) athologist Signature Bilirubin, 0.9 0.1 - 1.0 [facility] Total, S MG/DL LAB[facility]ATORIES - [facility] Specimen Anatomical Collection Method Collection Time Receive d Time (Source) Location / / Volume Laterality 08/21/2011 5:07 AM 2 5:07 PLANT ATTENDANT OR ASSISTANT OPERATOR AM PLANT ATTENDANT OR ASSISTANT OPERATOR Leonid Gonzalez M.D. LAB BLOOD ADD-ON Performing Organization Address City/[facility] Phon e Number [facility] - [address] [address] [facility] PT (Prothrombin Time) with INR (08/21/2011 5:07 AM PLANT ATTENDANT OR ASSISTANT OPERATOR) Patholo gist Method Time Signature Prothrombin 13.5 9.5 - 13.8 [facility] Time, P SEC [facility] - [facility] INR 1.1 0.8 - 1.2 [facility] - [facility] Specimen Anatomical Collection Method Collection Time Receive d Time (Source) Location / / Volume Laterality 08/21/2011 5:07 AM 2 5:07 PLANT ATTENDANT OR ASSISTANT OPERATOR AM PLANT ATTENDANT OR ASSISTANT OPERATOR Leonid D Leise M.D. LAB BLOOD ADD-ON Performing Organization Address City/State/ZIP Code Phon e Number [facility] - [address] [address] [facility] (ABNORMAL) CBC with Differential (08/21/2011 5:07 AM PLANT ATTENDANT OR ASSISTANT OPERATOR) [facility] Method Time Signature Erythrocytes 3.82 (L) 4.32 - [facility] 5.72 LABORATORIES - X10(12)/L [facility] MCV 92.4 81.2 - [facility] 95.1 [place] LABORATORIES - [facility] RBC Distrib 12.6 11.8 - [facility] Width 15.6 % LABORATORIES - [facility] Platelet Count 184 150 - 450 [facility] X10(9)/L LABORATORIES - [facility] Lymphocytes 2.08 0.90 - [facility] 2.90 LABORATORIES - X10(9)/L [facility] Monocytes 1.26 (H) 0.30 - [facility] 0.90 LABORATORIES - X10(9)/L [facility] Hemoglobin 11.7 (L) 13.5 - [facility] 17.5 G/DL [facility]ATOR[facility] - [facility] Hematocrit 35.3 (L) 38.8 - [facility] 50.0 % LAB[facility]ATORIES - [facility] Leukocytes 11.1 (H) 3.5 - [facility] 10.5 LABORATORIES - X10(9)/L [facility] Neutrophils 7.48 (H) 1.70 - [facility] 7.00 LABORATORIES - X10(9)/L [facility] Eosinophils 0.29 0.05 - [facility] 0.50 LABORATORIES - X10(9)/L [facility] Basophils 0.01 0.00 - [facility] 0.30 LABORATORIES - X10(9)/L [facility] Specimen Anatomical Collection Method Collection Time Receive d Time (Source) Location / / Volume Laterality 08/21/2011 5:07 AM 2 5:07 PLANT ATTENDANT OR ASSISTANT OPERATOR AM PLANT ATTENDANT OR ASSISTANT OPERATOR Leonid Gonzalez M.D. LAB BLOOD ADD-ON Performing Organization Address City/State/[facility] Code Phon e Number [facility] - [address] [address] [facility] (ABNORMAL) CRP (C-Reactive Protein) (08/21/2011 5:07 AM PLANT ATTENDANT OR ASSISTANT OPERATOR) [facility] Method Time Signature C-Reactive 155.2 (H) <=8.0 [facility] Protein (CRP), MG/L LABORATORIES - S [facility] Specimen Anatomical Collection Method Collection Time Receive d Time (Source) Location / / Volume Laterality 08/21/2011 5:07 AM 2 5:07 PLANT ATTENDANT OR ASSISTANT OPERATOR AM PLANT ATTENDANT OR ASSISTANT OPERATOR Leonid Gonzalez M.D. LAB BLOOD ADD-ON Performing Organization Address City/[facility]/ZIP Code Phon e Number [facility] - [address] [address] [facility] AST (Aspartate Aminotransferase) (08/21/2011 5:07 AM PLANT ATTENDANT OR ASSISTANT OPERATOR) P athologist Signature AST, Total, S 27 8 - 48 U/L [facility] Specimen Anatomical Collection Method Collection Time Receive d Time (Source) Location / / Volume Laterality 08/21/2011 5:07 AM 2 5:07 PLANT ATTENDANT OR ASSISTANT OPERATOR AM PLANT ATTENDANT OR ASSISTANT OPERATOR Leonid Gonzalez M.D. LAB BLOOD ADD-ON Performing Organization Address City/[facility]/ZIP Code Phon e Number [facility] - [address] [address] [facility] Alkaline Phosphatase (08/21/2011 5:07 AM PLANT ATTENDANT OR ASSISTANT OPERATOR) P athologist Signature Alkaline 77 45 - 115 [facility] Phosphatase, S U/L [facility] - [facility] Specimen Anatomical Collection Method Collection Time Receive d Time (Source) Location / / Volume Laterality 08/21/2011 5:07 AM 2 5:07 PLANT ATTENDANT OR ASSISTANT OPERATOR AM PLANT ATTENDANT OR ASSISTANT OPERATOR Leonid Gonazlez M.D. LAB BLOOD ADD-ON Performing Organization Address City/[facility]/ZIP Code Phon e Number [facility] - [address] [address] [facility] ALT (Alanine Aminotransferase) (08/21/2011 5:07 AM PLANT ATTENDANT OR ASSISTANT OPERATOR) Patholo gist Method Time Signature Alanine 24 7 - 55 [facility] Aminotransferase U/L LABORATORIES - (ALT), S [facility] Specimen Anatomical Collection Method Collection Time Receive d Time (Source) Location / / Volume Laterality 08/21/2011 5:07 AM 2 5:07 PLANT ATTENDANT OR ASSISTANT OPERATOR AM PLANT ATTENDANT OR ASSISTANT OPERATOR Leonid Gonzalez M.D. LAB BLOOD ADD-ON Performing Organization Address City/[facility]/ZIP Code Phon e Number [facility] - [address] [address] [facility] US Abdomen and Abdomen Doppler (08/20/2011 9:07 PM PLANT ATTENDANT OR ASSISTANT OPERATOR) Anatomical Region Laterality Modality Abdomen N/A Ultrasound Specimen (Source) Anatomical Collection Method Collection Time Re ceived Time Location / / Volume Laterality 08/20/2011 9:07 PM PLANT ATTENDANT OR ASSISTANT OPERATOR Narrative 08/21/2011 9:04 AM PLANT ATTENDANT OR ASSISTANT OPERATOR 20-Aug-2011 21:07:00 ??Exam: US Abd Cmpl with Doppler Cmpl Indications: Liver Tx with Doppler; abdo clay pain ORIGINAL REPORT - 20-Aug-2011 21:28:00 Ultrasound of the Liver Transplant and A bdomen with Doppler. Comparison is made with transplant ultrasounds from 11/20/2010 and 07/31/2009. Transplant date was 05/25/1999. Liver transplant:.... ??Normal echogenci ty and echotexture. Gallbladder:...........Absent. Bile ducts:............Not dilated. The mild edema around the extrahepatic duct demonstrated on CT abdomen/pelvis from 08/19/2011 is not clearly identified on the ultrasound. Doppler:............... Normal flow dire ction within the hepatic veins, although the atrial pulsatility demonstrated on 11/20/2010 is not as well seen. The hepatic artery waveforms were difficult to acqu ernesto, and appear normal proximal to the a nastomosis. Mildly low resistive indices with slight rounding of the systolic upstroke in both left and right hepatic arteries is new since 11/20/2010. Resistive i ndices today measure 0.58 on the left an d 0.45 on the right, similar to last year. The hepatic arteries demonstrate normal flow direction. The portal vein and splenic vein demonstrate normal antegrade flow towards the liver. The IVC is normal. ?? Pancreas:..............Not well seen. ?? Spleen:................Normal. Right kidney:..........Normal. Measures 11.3 cm in vlfl-dj-kzqm length. Left kidney:...........Normal. Measures 10.9 cm in hcnu-hf-dmad length. Aorta:.................Normal caliber. No ascites in the abdomen. Electronically signed by: ?? Rafiq PETTIT ??[id number] ??[id number] 20-Aug-19 12 21:28 I have reviewed the films/images and agr ee with the above interpretation. Electronically signed by: ?? Christine Singh MD ??[id number] 21-Aug-2011 09 :04 Procedure Note Jaxson Singh M.D. - 09/20/2017Format ting of this note might be different from the original. 20-Aug-2011 21:07:00 Exam: US Abd Cmpl w ith Doppler Cmpl Indications: Liver Tx with Doppler; abdo clay pain ORIGINAL REPORT - 20-Aug-2011 21:28:00 Ultrasound of the Liver Transplant and A bdomen with Doppler. Comparison is made with transplant ultrasounds from 11/20/2010 and 07/31/2009. Transplant date was 05/25/1999. Liver transplant:.... Normal echogencity and echotexture. Gallbladder:...........Absent. Bile ducts:............Not dilated. The mild edema around the extrahepatic duct demonstrated on CT abdomen/pelvis from 08/19/2011 is not clearly identified on the ultrasound. Doppler:............... Normal flow dire ction within the hepatic veins, although the atrial pulsatility demonstrated on 11/20/2010 is not as well seen. The hepatic artery waveforms were difficult to acquire, and appear normal proximal to the anastomosis. Mild ly low resistive indices with slight rounding of the systolic upstroke in both left and right hepatic arteries is new since 11/20/2010. Resistive indices today measure 0.58 on the left and 0.45 on the right, similar to last year. The hepatic arteries demonstrate normal flow direction. The portal vein and splenic vein demonstrate normal antegrade flow towards the liver. The IVC is normal. Pancreas:..............Not well seen. Spleen:................Normal. Right kidney:..........Normal. Measures 11.3 cm in czzk-wo-kziv length. Left kidney:...........Normal. Measures 10.9 cm in gkyt-am-htsq length. Aorta:.................Normal caliber. No ascites in the abdomen. Electronically signed by: Rafiq PETTIT [id number] 20-Aug-2011 2 1:28 I have reviewed the films/images and agr ee with the above interpretation. Electronically signed by: Christine Singh MD [id number] 21-Aug-2011 09:0 4 Thelma Freitas M.D., Ph.D. IMG US PROCEDURES documented in this encounter Visit Diagnoses Not on filedocumented in this encounter
--- OUTSIDE RECORDS SUMMARY | 2022-04-13 12:49 | XMS_ITS | Encounter Summary ---
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 [address] [place] [phone] 04/25/2022 Office Visit Otorhinolaryngology Dex Matta APRN, C.N.P., M.S.N. [address] [place] [phone] 05/08/2022 Appointment Laboratory Medicine Angélica Granger P.A.-C. [address] [place] [phone] 05/08/2022 Clinical Admitting/Central Communication Scheduling 05/10/2022 Appointment Radiology Jeremie Rose M.D. [address] [place] [phone] 05/10/2022 Comprehensive Visit Orthopedic Surgery Warner Graves M.D. [address] [place] [phone] 05/22/2022 Appointment Laboratory Medicine Angélica Granger P.A.-C. [address] [place] [phone] 06/05/2022 Appointment Laboratory Medicine Angélica Granger P.A.-C. [address] [place] [phone] 06/19/2022 Appointment Laboratory Medicine Angélica Granger P.A.-C. [address] [place] [phone] 07/03/2022 Appointment Laboratory Medicine Angélica Granger P.A.-C. [address] [place] [phone] 07/17/2022 Appointment Laboratory Medicine Angélica Granger P.A.-C. [address] [place] [phone] 07/31/2022 Appointment Laboratory Medicine Angélica Granger P.A.-C. [address] [place] [phone] 08/14/2022 Appointment Laboratory Medicine Angélica Granger P.A.-C. [address] [place] [phone] 08/28/2022 Appointment Laboratory Medicine Angélica Granger P.A.-C. [address] [place] [phone] documented as of this encounter Visit Diagnoses Not on filedocumented in this encounter
--- OUTSIDE RECORDS SUMMARY | 2022-04-13 12:49 | XMS_ITS | Encounter Summary ---
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 [address] [place] [phone] 04/25/2022 Office Visit Otorhinolaryngology Dex Matta APRN, C.N.P., M.S.N. [address] [place] [phone] 05/08/2022 Appointment Laboratory Medicine Angélica Granger P.A.-C. [address] [place] [phone] 05/08/2022 Clinical Admitting/Central Communication Scheduling 05/10/2022 Appointment Radiology Jeremie Rose M.D. [address] [place] [phone] 05/10/2022 Comprehensive Visit Orthopedic Surgery Warner Graves M.D. [address] [place] [phone] 05/22/2022 Appointment Laboratory Medicine Angélica Granger P.A.-CDemetrius [address] [place] [phone] 06/05/2022 Appointment Laboratory Medicine Angélica Granger P.A.-CDemetrius [address] [place] [phone] 06/19/2022 Appointment Laboratory Medicine Angélica Granger P.A.-C. [address] [place] [phone] 07/03/2022 Appointment Laboratory Medicine Angélica Granger P.A.-C. [address] [place] [phone] 07/17/2022 Appointment Laboratory Medicine Angélica Granger P.A.-C. [address] [place] [phone] 07/31/2022 Appointment Laboratory Medicine Angélica Granger P.A.-C. [address] [place] [phone] 08/14/2022 Appointment Laboratory Medicine Angélica Granger P.A.-C. [address] [place] [phone] 08/28/2022 Appointment Laboratory Medicine Angélica Granger P.A.-C. [address] [place] [phone] documented as of this encounter Visit Diagnoses Not on filedocumented in this encounter Additional Health Concerns Infection Onset Date Last Indicated Resolved Time COVID19 Pending 12/13/2019 12/13/2019 12/14/2019 11:03 AM CDT COVID19 Pending 01/26/2020 01/27/2020 01/28/2020 12:12 AM CDT documented as of this encounter Care Teams Executive Chairman Of The Board Relationship Specialty Start Date End Date Elsewhere, Pcp PCP - General Family Medicine 07/29/17 [facility] - Laboratory Medicine 04/12/[address] [phone] documented as of this encounter
--- OUTSIDE RECORDS SUMMARY | 2022-04-13 12:50 | XMS_ITS ---
:1955 Author Organization [facility] Address [address] [place] [address] Care Team Providers Name Role Phone Elsewhere, Pcp Primary Care Provider Unavailable Trans[facility] [place] [facility] [place]2018Marked as Inactive on 2Reason: Temporarily too Sick Kidney CoordinatorPatricia Dick R.N., C.C.T.C. Gnt: [phone]: [email or web address] Scores Score Value Updated Exceptions/Reaso ns CPRA 0 04/15/2020 EPTS (Calc) 74 04/13/2022 [place] Organ Diagnosis Organ Primary Contributory Kidney Calcineurin Inhibitor Nephrotoxicity Infection History Noted Survival Infection Treatment Organism Resolved 01/21/2022 Pneumonia Aspergillus (HCC) 12/10/2021 Infection Respiratory Lower 12/10/2021 Infection Cytomegalovirus (HCC) 06/12/2021 Acute Bronchiolitis Due To Other Specified Organisms 06/12/2021 Colitis Cytomegalovirus (HCC) Care Team Name Role Phone Fax Email Patricia Garcia Kidney Coordinator [phone] Sasha [email or web address] Dick R.N., [email or web address] C.C.T.C. Anjana Martinez, Transplant Communications Superintendent [phone] Michelle.[email or web address] Santana Ramirez M.D. Referring Provider [phone] N/ A Milad Bennett M.D. Transplant Surgeon [phone] [email or web address] Events Pre-Transplant Referred: 02/11/2018 Evaluation began: 02/17/2018 Committee: 04/01/2018 Center waitlisted: 04/07/2018 Dialysis History Dialysis History Start End Type Comments Center 06/01/2021 Hemo ESRD [facility] Dialysis Dialysis Center Information Center Phone Fax Address ESRD [facility] [address] [facility] [phone]
--- OUTSIDE RECORDS SUMMARY | 2022-04-13 12:50 | XMS_ITS | Encounter Summary ---
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 [address] [place] [phone] 04/25/2022 Office Visit Otorhinolaryngology Dex Matta APRN, C.N.P., M.S.N. [address] [place] [phone] 05/08/2022 Appointment Laboratory Medicine Angélica Granger P.A.-C. [address] [place] [phone] 05/08/2022 Clinical Admitting/Central Communication Scheduling 05/10/2022 Appointment Radiology Jeremie Rose M.D. [address] [place] [phone] 05/10/2022 Comprehensive Visit Orthopedic Surgery Warner Graves M.D. [address] [place] [phone] 05/22/2022 Appointment Laboratory Medicine Angélica Granger P.A.-C. [address] [place] [phone] 06/05/2022 Appointment Laboratory Medicine Angélica Granger P.A.-C. [address] [place] [phone] 06/19/2022 Appointment Laboratory Medicine Angélica Granger P.A.-C. [address] [place] [phone] 07/03/2022 Appointment Laboratory Medicine Angélica Granger P.A.-C. [address] [place] [phone] 07/17/2022 Appointment Laboratory Medicine Angélica Granger P.A.-C. [address] [place] [phone] 07/31/2022 Appointment Laboratory Medicine Angélica Granger P.A.-C. [address] [place] [phone] 08/14/2022 Appointment Laboratory Medicine Angélica Granger P.A.-C. [address] [place] [phone] 08/28/2022 Appointment Laboratory Medicine Angélica Granger P.A.-C. [address] [place] [phone] documented as of this encounter Procedures Procedure Name Priority Date/Time Associated Diagnosis Comme nts DX CHEST AP OR PA Routine 05/22/1999 2:16 PM Resu lts for this AND LATERAL 2 VIEWS NETWORK SECURITY OFFICER procedur e are in the results section. PREPARE RED BLOOD Routine 05/22/1999 2:00 PM Resu lts for this CELLS NETWORK SECURITY OFFICER procedure are i n the results section. ECG Routine 05/22/1999 1:38 PM Results f or this NETWORK SECURITY OFFICER procedure are i n the results section. documented in this encounter Results DX Chest AP or PA and Lateral 2 Views (05/22/1999 2:16 PM NETWORK SECURITY OFFICER) Anatomical Region Laterality Modality Chest N/A Radiographic Imaging Specimen (Source) Anatomical Collection Method Collection Time Re ceived Time Location / / Volume Laterality 05/22/1999 2:16 PM NETWORK SECURITY OFFICER Narrative 05/22/1999 2:59 PM NETWORK SECURITY OFFICER 22-May-1999 14:16:00 ??Exam: Chest-- 2 Views Indications: PRE-OP OLT ORIGINAL REPORT - 22-May-1999 14:59:00 Negative chest. Electronically signed by: ?? German ??Julian PETTIT. ??[id number] 22-May-1999 14 :59 Procedure Note Philip Lawrence M.D. - 09/29/2017Format ting of this note might be different from the original. 22-May-1999 14:16:00 Exam: Chest-- 2 Vie ws Indications: PRE-OP OLT ORIGINAL REPORT - 22-May-1999 14:59:00 Negative chest. Electronically signed by: German Lawrence MD. [id number] 22-May-1999 14:59 Historical Provider IMG DIAGNOSTIC IMAGING PROCE IKE Prepare Red Blood Cells (05/22/1999 2:00 PM NETWORK SECURITY OFFICER) Specimen Anatomical Collection Method Collection Time Receive d Time (Source) Location / / Volume Laterality 05/22/1999 2:00 PM 9 NETWORK SECURITY OFFICER 10:37 PM NETWORK SECURITY OFFICER [facility] - 05/22/1999 2:00 PM NETWORK SECURITY OFFICER 22 May 1999 ?[id number] ? Ro ?14:00 ?? RBC TRF Order: ?ABO/RH ? O POS ?Antibody Screen ?N eg Procedure Note 10/08/2017 22 May 1999 [id number] Ro 14:00 RBC TRF Order: ABO/RH O POS Antibody Screen Neg Historical Provider BLOOD BANK PRODUCT ORDERABLE S Performing Organization Address City/State/ZIP Code Phon e Number [facility] - [address] [place], [place] [address] [facility] ECG 12 Lead (05/22/1999 1:38 PM NETWORK SECURITY OFFICER) Specimen (Source) Anatomical Collection Method Collection Time Re ceived Time Location / / Volume Laterality 05/22/1999 1:38 PM NETWORK SECURITY OFFICER Narrative [facility] [employer] [facility] - 05/22/1999 2:27 PM NETWORK SECURITY OFFICER 22May1999 13:38 VENTRICULAR RATE 43 Marked sinus bradycardia Otherwise normal ECG When compared with ECG of 08-MAY-1998 13 :21, No significant change was found 914^FAYE ??^LACEY Procedure Note Provider, Historical - 09/16/2017Formatt ing of this note might be different from the original. [id number] 13:38 VENTRICULAR RATE 43 Marked sinus bradycardia Otherwise normal ECG When compared with ECG of 08-MAY-1998 13 :21, No significant change was found 914^FAYE PETTIT^LACEY Historical Provider ECG ORDERABLES Performing Organization Address City/State/ZIP Code Phon e Number [facility] [address] [place] [address], [place] documented in this encounter Visit Diagnoses Not on filedocumented in this encounter
--- OUTSIDE RECORDS SUMMARY | 2022-04-13 12:50 | XMS_ITS | Encounter Summary ---
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 [address] [place] [phone] 04/25/2022 Office Visit Otorhinolaryngology Dex Matta APRN, C.N.P., M.S.N. [address] [place] [phone] 05/08/2022 Appointment Laboratory Medicine Angélica Granger P.A.-C. [address] [place] [phone] 05/08/2022 Clinical Admitting/Central Communication Scheduling 05/10/2022 Appointment Radiology Jeremie Rose M.D. [address] [place] [phone] 05/10/2022 Comprehensive Visit Orthopedic Surgery Warner Graves M.D. [address] [place] [phone] 05/22/2022 Appointment Laboratory Medicine Angélica Granger P.A.-C. [address] [place] [phone] 06/05/2022 Appointment Laboratory Medicine Angélica Granger P.A.-C. [address] [place] [phone] 06/19/2022 Appointment Laboratory Medicine Angélica Granger P.A.-C. [address] [place] [phone] 07/03/2022 Appointment Laboratory Medicine Angélica Granger P.A.-C. [address] [place] [phone] 07/17/2022 Appointment Laboratory Medicine Angélica Granger P.A.-C. [address] [place] [phone] 07/31/2022 Appointment Laboratory Medicine Angélica Granger P.A.-C. [address] [place] [phone] 08/14/2022 Appointment Laboratory Medicine Angélica Granger P.A.-C. [address] [place] [phone] 08/28/2022 Appointment Laboratory Medicine Angélica Granger P.A.-C. [address] [place] [phone] documented as of this encounter Procedures Procedure Name Priority Date/Time Associated Diagnosis Comme nts DX CHEST AP OR PA Routine 06/18/1999 8:24 AM Resu lts for this AND LATERAL 2 VIEWS VAT SKIMMER procedur e are in the results section. DX CHEST AP OR PA Routine 06/15/1999 8:05 AM Resu lts for this AND LATERAL 2 VIEWS VAT SKIMMER procedur e are in the results section. documented in this encounter Results DX Chest AP or PA and Lateral 2 Views (06/18/1999 8:24 AM VAT SKIMMER) Anatomical Region Laterality Modality Chest N/A Radiographic Imaging Specimen (Source) Anatomical Collection Method Collection Time Re ceived Time Location / / Volume Laterality 06/18/1999 8:24 AM VAT SKIMMER Narrative 06/18/1999 8:53 AM VAT SKIMMER 18-Jun-1999 08:24:00 ??Exam: Chest-- 2 Views Indications: S/P OLT ORIGINAL REPORT - 18-Jun-1999 08:53:00 Negative chest. Electronically signed by: ?? FELIX So MD. ??[id number] 18-Jun-1999 08:53 Procedure Note Dannielle Rizzo M.D. - 09/29/2017Formatt ing of this note might be different from the original. 18-Jun-1999 08:24:00 Exam: Chest-- 2 Vie ws Indications: S/P OLT ORIGINAL REPORT - 18-Jun-1999 08:53:00 Negative chest. Electronically signed by: FELIX Rizzo MD. [id number] 18-Jun-1999 08:53 [facility]at[facility] PROCE DURES DX Chest AP or PA and Lateral 2 Views (06/15/1999 8:05 AM VAT SKIMMER) Anatomical Region Laterality Modality Chest N/A Radiographic Imaging Specimen (Source) Anatomical Collection Method Collection Time Re ceived Time Location / / Volume Laterality 06/15/1999 8:05 AM VAT SKIMMER Narrative 06/15/1999 11:23 AM VAT SKIMMER 15-Jun-1999 08:05:00 ??Exam: Chest-- 2 Views Indications: pre-okt3 ORIGINAL REPORT - 15-Jun-1999 08:40:00 Negative chest. Electronically signed by: ?? Saeed Lerma M.D. [id number]) 15-Jun-19 99 08:40 I have reviewed the films/images and agr ee with the above interpretation. Electronically signed by: ?? Char Hernández MD. ??[id number] 15-Jun-1999 11: 23 Procedure Note Ángel Hernández M.D. - 09/29/2017Formatti ng of this note might be different from the original. 15-Jun-1999 08:05:00 Exam: Chest-- 2 Vie ws Indications: pre-okt3 ORIGINAL REPORT - 15-Jun-1999 08:40:00 Negative chest. Electronically signed by: Saeed Lerma M.D. [id number] ([id number]) 15-Jun-19 99 08:40 I have reviewed the films/images and agr ee with the above interpretation. Electronically signed by: Char Hernández MD. [id number] 15-Jun-1999 11:23 Anatoli[facility] PROCE DURES documented in this encounter Visit Diagnoses Not on filedocumented in this encounter
--- OUTSIDE RECORDS SUMMARY | 2022-04-13 12:50 | XMS_ITS ---
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 Donor Information Organ ABO Source Meets Risk Criteria HLA Match Mismatches Cross Match Liver O DBD A: Failed B: DR: Failure Information Organ Failed Survival Removed Method Primary Contributo ry Liver 06/12/2013 14 years Liver Donor Serology Results Anti-HBcAb HBsAg HBsAb HBV DNA Anti-HCV HAV HBC Total: HBsAg: Negative No results on No results HCV: Negative No results on Negative file on file file Anti-HIV I/II Anti-HTLV I/II Coccidioides Anti-CMV Quantiferon TB EBV Total HIV-1: Negative HTLV: Negative No results on CMV IgG: No results on No results on file Positive file file EBV IgG EBV IgM EBNA Measles Mumps Rubella No results on file No results on No results on No results No results on No results on file file on file file file Varicella Zoster HSV 1 HSV 2 Toxoplasma Cryptococcus Ag Histoplasma No results on file No results on No results on No results No results on No results on file file on file file file Strongyloides Schistosoma Trypanosoma RPR/VDRL Syphilis RSV No results on file No results on cruzi RPR: No results on No results on file No results on Negative file file file SARS CoV-2 HBV NARCISA HCV NARCISA No results on file No results on file No results on file Care Team Name Role Phone Fax Email Coordinator Liver Coordinator N/A N/A N/A Transplant, R.NDemetrius Ramirez M.D. Referring Provider [phone] N/ A Ryan Cole M.D. Transplant External [phone] [email or web address] Combat Plans Officer nikki bernstein Events Post-Transplant Pre-Transplant Admitted: 02/15/1998 Referred: 05/25/1999 Transplanted: 05/25/1999 Center waitlisted: 04/27/1998 Discharged: 06/27/1999 Liver failed: 06/12/2013 Dialysis History Dialysis History Start End Type Comments Center 06/01/2021 Hemo ESRD [facility] Dialysis Dialysis Center Information Center Phone Fax Address ESRD [facility] Dialysis [facility] [place] [address] [phone]
--- OUTSIDE RECORDS SUMMARY | 2022-04-13 12:50 | XMS_ITS ---
:1955 Author Organization [facility] Address [address] [place] [address] Care Team Providers Name Role Phone Elsewhere, Pcp Primary Care Provider Unavailable [facility] [place]: LiverTransplanted on 06/12/2013Marked as Active Follow-up on 06/12/2013 Liver CoordinatorYolie Dubois R.N. 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 Retransplant Diagnosis Organ Primary Contributory Liver Other, Specify Infection History Noted Survival Infection Treatment Organism Resolved 01/21/2022 8 years 7 months Pneumonia Aspergillus (HCC) 12/10/2021 8 years 5 months Infection Respiratory Lower 12/10/2021 8 years 5 months Infection Cytomegalovirus (HCC) 10/12/2021 8 years 4 months Pneumonia 06/12/2021 8 years Acute Bronchiolitis Due To Other Specified Organisms 06/12/2021 8 years Colitis Cytomegalovirus (HCC) 11/12/2020 7 years 5 months Acute Bronchitis Due To COVID-19 10/31/2020 7 years 4 months COVID-19 Infection 01/31/2020 6 years 7 months Rhinosinusitis Chronic Donor Information Organ ABO Source Meets Risk Criteria HLA Match Mismatches Cross Match Liver O DBD Yes A: Transplanted B: DR: Liver Donor Serology Results Anti-HBcAb HBsAg HBsAb HBV DNA Anti-HCV HAV HBC Total: HBsAg: Negative HBsAb: Not Done No results HCV: Negative N o results Negative on file on file Anti-HIV I/II Anti-HTLV I/II Coccidioides Anti-CMV Quantiferon TB EBV Total HIV-1: Negative HTLV: Not Done No results on CMV IgG: No results on No results file Negative file on file EBV IgG EBV IgM EBNA Measles Mumps Rubella EBV VCA IgG: EBV VCA IgM: EBNA IgG: Not No results No results on No r esults Positive Negative Done on file file on file Varicella Zoster HSV 1 HSV 2 Toxoplasma Cryptococcus Ag Histoplasma No results on No results on No results on No results No results on No results file file file on file file on file Strongyloides Schistosoma Trypanosoma RPR/VDRL Syphilis RSV No results on No results on cruzi RPR: No results on No results file file No results on Negative file on file file SARS CoV-2 HBV NARCISA HCV NARCISA No results on file No results on file No results on file Care Team Name Role Phone Fax Email Yolie Dubois R.N. Liver Coordinator [phone] N/A [email or web address] Santana Ramirez M.D. Referring Provider [phone] N/ A Events Post-Transplant Pre-Transplant Admitted: 06/10/2013 Referred: 03/25/2012 Transplanted: 06/12/2013 Evaluation began: 03/25/2012 Discharged: 06/19/2013 Center waitlisted: 11/04/2012 Dialysis History Dialysis History Start End Type Comments Center 06/01/2021 [facility] Information Center Phone Fax Address ESRD [facility] [address] [facility] [phone]
--- OUTSIDE RECORDS SUMMARY | 2022-04-13 12:50 | XMS_ITS | Encounter Summary ---
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 [address] [place] [phone] 04/25/2022 Office Visit Otorhinolaryngology Dex Matta APRN, C.N.P., M.S.N. [address] [place] [phone] 05/08/2022 Appointment Laboratory Medicine Angélica Granger P.A.-C. [address] [place] [phone] 05/08/2022 Clinical Admitting/Central Communication Scheduling 05/10/2022 Appointment Radiology Jeremie Rose M.D. [address] [place] [phone] 05/10/2022 Comprehensive Visit Orthopedic Surgery Warner Graves M.D. [address] [place] [phone] 05/22/2022 Appointment Laboratory Medicine Angélica Granger P.A.-C. [address] [place] [phone] 06/05/2022 Appointment Laboratory Medicine Angélica Granger P.A.-C. [address] [place] [phone] 06/19/2022 Appointment Laboratory Medicine Angélica Granger P.A.-C. [address] [place] [phone] 07/03/2022 Appointment Laboratory Medicine Angélica Granger P.A.-C. [address] [place] [phone] 07/17/2022 Appointment Laboratory Medicine Angélica Granger P.A.-C. [address] [place] [phone] 07/31/2022 Appointment Laboratory Medicine Angélica Granger P.A.-C. [address] [place] [phone] 08/14/2022 Appointment Laboratory Medicine Angélica Granger P.A.-C. [address] [place] [phone] 08/28/2022 Appointment Laboratory Medicine Angélica Granger P.A.-C. [address] [place] [phone] documented as of this encounter Visit Diagnoses Not on filedocumented in this encounter
--- OUTSIDE RECORDS SUMMARY | 2022-04-13 12:50 | XMS_ITS | Encounter Summary ---
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 [address] [place] [phone] 04/25/2022 Office Visit Otorhinolaryngology Dex Matta APRN, C.N.P., M.S.N. [address] [place] [phone] 05/08/2022 Appointment Laboratory Medicine Angélica Granger P.A.-C. [address] [place] [phone] 05/08/2022 Clinical Admitting/Central Communication Scheduling 05/10/2022 Appointment Radiology Jeremie Rose M.D. [address] [place] [phone] 05/10/2022 Comprehensive Visit Orthopedic Surgery Warner Graves M.D. [address] [place] [phone] 05/22/2022 Appointment Laboratory Medicine Angélica Granger P.A.-C. [address] [place] [phone] 06/05/2022 Appointment Laboratory Medicine Angélica Granger P.A.-C. [address] [place] [phone] 06/19/2022 Appointment Laboratory Medicine Angélica Granger P.A.-C. [address] [place] [phone] 07/03/2022 Appointment Laboratory Medicine Angélica Granger P.A.-C. [address] [place] [phone] 07/17/2022 Appointment Laboratory Medicine Angélica Granger P.A.-C. [address] [place] [phone] 07/31/2022 Appointment Laboratory Medicine Angélica Granger P.A.-C. [address] [place] [phone] 08/14/2022 Appointment Laboratory Medicine Angélica Granger P.A.-C. [address] [place] [phone] 08/28/2022 Appointment Laboratory Medicine Angélica Granger P.A.-C. [address] [place] [phone] documented as of this encounter Procedures Procedure Name Priority Date/Time Associated Diagnosis Comme nts IR VISCERAL ARTERY Routine 12/21/1998 4:46 PM Res ults for this ANGIOGRAM CDT procedure are i n the results section. PREPARE PLATELETS Routine 12/21/1998 2:40 PM Resu lts for this CDT procedure are i n the results section. PREPARE FRESH Routine 12/21/1998 2:40 PM Results for this FROZEN PLASMA CDT procedure are in the results section. documented in this encounter Results IR Visceral Artery Angiogram (12/21/1998 4:46 PM CDT) Anatomical Region Laterality Modality Abdomen N/A X-Ray Angiography Specimen (Source) Anatomical Collection Method Collection Time Re ceived Time Location / / Volume Laterality 12/21/1998 4:46 PM CDT Narrative 12/22/1998 9:39 AM CDT 21-Dec-1998 16:46:00 ??Exam: V&IRAD ART. VISCERAL Indications: massive hepatic necrosis; ORIGINAL REPORT - 22-Dec-1998 09:39:00 Aberrant hepatic arterial anatomy. Small mass in the dome of the liver corresponding to the CT abnormality. Appearance of the mass is nonspecific. ?? Electronically signed by: ?? Jeromy ??Derrell PETTIT. ??[id number] 22-Dec-1998 09:39 Procedure Note Miguel Dove M.D. - 09/29/2017Forma tting of this note might be different from the original. 21-Dec-1998 16:46:00 Exam: V&IRAD ART. V ISCERAL Indications: massive hepatic necrosis; ORIGINAL REPORT - 22-Dec-1998 09:39:00 Aberrant hepatic arterial anatomy. Small mass in the dome of the liver corresponding to the CT abnormality. Appearance of the mass is nonspecific. Electronically signed by: Jeromy Dove MD. [id number] 22-Dec-1998 09:3 9 Santana Patterson M.D. IMG IR PROCEDURES Prepare platelets (12/21/1998 2:40 PM CDT) Specimen Anatomical Collection Method Collection Time Receive d Time (Source) Location / / Volume Laterality 12/21/1998 2:40 PM 199 9 5:[address] [facility] - 12/21/1998 2:40 PM CDT 21 Dec 1998 ?[id number] ?Ro ?14:40 ?? Platelet TRF Order: ?Blood Component ?P latelets, Pooled ?Transfused ? 21 Dec 1998 ?Unit Number Id ? [id number] Procedure Note 10/08/2017 21 Dec 1998 [id number] Ro 14:40 Platelet TRF Order: Blood Component Platelets, Pooled Transfused 21 Dec 1998 Unit Number Id [id number] Historical Provider BLOOD BANK PRODUCT ORDERABLE S Performing Organization Address City/State/ZIP Code Phon e Number [facility] - [address] [place], [place] [address] [facility] Prepare fresh frozen plasma (12/21/1998 2:40 PM CDT) Specimen Anatomical Collection Method Collection Time Receive d Time (Source) Location / / Volume Laterality 12/21/1998 2:40 PM 12/21/199 9 5:02 CDT PM CDT Narrative [facility] - [facility] - 12/21/1998 2:40 PM CDT 21 Dec 1998 ?[id number] ?Ro ?14:40 ?? FFP TRF Order: ?Blood Component ?F FP, Thawed ?Transfused ? 21 Dec 1998 ?Unit Number Id ? [id number] ?Blood Component ?F FP, Thawed ?Transfused ? 21 Dec 1998 ?Unit Number Id ? [id number] Procedure Note 10/08/2017 21 Dec 1998 [id number] Ro 14:40 FFP TRF Order: Blood Component FFP, Thawed Transfused 21 Dec 1998 Unit Number Id [id number] Blood Component FFP, Thawed Transfused 21 Dec 1998 Unit Number Id [id number] Historical Provider BLOOD BANK PRODUCT ORDERABLE S Performing Organization Address City/State/[facility] Code Phon e Number [facility] - [address] [place] [phone] [facility] documented in this encounter Visit Diagnoses Not on filedocumented in this encounter
--- OUTSIDE RECORDS SUMMARY | 2022-04-13 12:50 | XMS_ITS | Encounter Summary ---
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 [address] [place] [phone] 04/25/2022 Office Visit Otorhinolaryngology Dex Matta APRN, C.N.P., M.S.N. [address] [place] [phone] 05/08/2022 Appointment Laboratory Medicine Angélica Granger P.A.-C. [address] [place] [phone] 05/08/2022 Clinical Admitting/Central Communication Scheduling 05/10/2022 Appointment Radiology Jeremie Rose M.D. [address] [place] [phone] 05/10/2022 Comprehensive Visit Orthopedic Surgery Warner Graves M.D. [address] [place] [phone] 05/22/2022 Appointment Laboratory Medicine Angélica Granger P.A.-CDemetrius [address] [place] [address] [phone] 06/05/2022 Appointment Laboratory Medicine Angélica Granger P.A.-CDemetrius [address] [place] [phone] 06/19/2022 Appointment Laboratory Medicine Angélica Granger P.A.-C. [address] [place] [phone] 07/03/2022 Appointment Laboratory Medicine Angélica Granger P.A.-C. [address] [place] [phone] 07/17/2022 Appointment Laboratory Medicine Angélica Granger P.A.-C. [address] [place] [phone] 07/31/2022 Appointment Laboratory Medicine Angélica Granger P.A.-C. [address] [place] [phone] 08/14/2022 Appointment Laboratory Medicine Angélica Granger P.A.-C. [address] [place] [phone] 08/28/2022 Appointment Laboratory Medicine Angélica Granger P.A.-C. [address] [place] [phone] documented as of this encounter Visit Diagnoses Not on filedocumented in this encounter Additional Health Concerns Infection Onset Date Last Indicated Resolved Time COVID19 Pending 12/13/2019 12/13/2019 12/14/2019 11:03 AM CDT COVID19 Pending 01/26/2020 01/27/2020 01/28/2020 12:12 AM CDT documented as of this encounter Care Teams Professional Driver Relationship Specialty Start Date End Date Elsewhere, Pcp PCP - General Family Medicine 07/29/17 [facility] - Laboratory Medicine 04/12/[address] [address] documented as of this encounter
--- OUTSIDE RECORDS SUMMARY | 2022-04-13 12:50 | XMS_ITS | Encounter Summary ---
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 [address] [place] [phone] 04/25/2022 Office Visit Otorhinolaryngology Dex Matta APRN, C.N.P., M.S.N. [address] [place] [phone] 05/08/2022 Appointment Laboratory Medicine Angélica Granger P.A.-C. [address] [place] [phone] 05/08/2022 Clinical Admitting/Central Communication Scheduling 05/10/2022 Appointment Radiology Jeremie Rose M.D. [address] [place] [phone] 05/10/2022 Comprehensive Visit Orthopedic Surgery Wraner Graves M.D. [address] [place] [phone] 05/22/2022 Appointment Laboratory Medicine Agnélica Granger P.A.-C. [address] [place] [phone] 06/05/2022 Appointment Laboratory Medicine Angélica Granger P.A.-C. [address] [place] [phone] 06/19/2022 Appointment Laboratory Medicine Angélica Granger P.A.-C. [address] [place] [phone] 07/03/2022 Appointment Laboratory Medicine Angélica Granger P.A.-C. [address] [place] [phone] 07/17/2022 Appointment Laboratory Medicine Angélica Granger P.A.-C. [address] [place] [phone] 07/31/2022 Appointment Laboratory Medicine Angélica Granger P.A.-C. [address] [place] [phone] 08/14/2022 Appointment Laboratory Medicine Angélica Granger P.A.-C. [address] [place] [phone] 08/28/2022 Appointment Laboratory Medicine Angélica Granger P.A.-C. [address] [place] [phone] documented as of this encounter Procedures Procedure Name Priority Date/Time Associated Comments Diagnosis CYTOLOGY Routine 03/30/1999 1:50 PM Results f or this CDT procedure are i n the results section. PREPARE RED BLOOD Routine 03/30/1999 10:42 Result s for this CELLS AM CDT procedure are i n the results section. CYTOLOGY Routine 03/29/1999 12:45 Results for this PM CDT procedure are i n the results section. US LIVER BIOPSY Routine 03/29/1999 12:25 Results for this PM CDT procedure are i n the results section. US PARACENTESIS WITH Routine 03/29/1999 12:24 Res ults for this IMAGING GUIDANCE PM CDT procedure a re in the results section. PREPARE FRESH FROZEN Routine 03/29/1999 12:39 Res ults for this PLASMA AM CDT procedure are i n the results section. PREPARE PLATELETS Routine 03/29/1999 12:37 Result s for this AM CDT procedure are i n the results section. PREPARE FRESH FROZEN Routine 03/28/1999 11:00 Res ults for this PLASMA PM CDT procedure are i n the results section. documented in this encounter Results Cytology (03/30/1999 1:50 PM CDT) Specimen Anatomical Collection Method Collection Time Receive d Time (Source) Location / / Volume Laterality 03/30/1999 1:50 PM 9 1:50 CDT PM CDT Narrative [facility] - 03/30/1999 1:50 PM CDT 30Mar1999 Cytology - Non-gynecological Requested By: ? Jaxson carrera M.D. ?([id number]) ?? SPECIMEN DESCRIPTION: ?Received 30 cc of Blood Tinged Abd ominal Fluid. ?? DIAGNOSIS: ?? Abdominal Fluid: No abnormal cells s een. ?? 02Apr1999 ?Sergio Henry M.D.:sjf Procedure Note 09/12/2017 30Mar1999 Cytology - Non-gynecological Requested By: Jaxson Wolfe M.D. ([id number]) SPECIMEN DESCRIPTION: Received 30 cc of Blood Tinged Abdomina l Fluid. DIAGNOSIS: Abdominal Fluid: No abnormal cells seen . 02Apr1999 Sergio Henry M.D.:s ned Jaxson Wolfe M.D. LAB PATHOLOGY/CYTOLOGY ORDER OSMEL Performing Organization Address City/State/ZIP Code Phon e Number [facility] - [address] [place], [place] [address] [facility] Prepare Red Blood Cells (03/30/1999 10:42 AM CDT) Specimen Anatomical Collection Method Collection Time Receive d Time (Source) Location / / Volume Laterality 03/30/1999 10:42 03/30/1999 4:31 AM CDT PM CDT Narrative [facility] - 03/30/1999 10:42 AM CDT 30 Mar 1999 ?[id number] ?Ro ?10:42 ?? RBC TRF Order: ?ABO/RH ? O POS ?Antibody Screen ?N eg ?Blood Component ?R BC, Leukoreduced -3 ?Transfused ? 30 Mar 1999 ?Unit Number Id ? [id number] ?Blood Component ?R BC, Leukoreduced -3 ?Transfused ? 30 Mar 1999 ?Unit Number Id ? [id number] Procedure Note 10/08/2017 30 Mar 1999 [id number] Ro 10:42 RBC TRF Order: ABO/RH O POS Antibody Screen Neg Blood Component RBC, Leukoreduced -3 Transfused 30 Mar 1999 Unit Number Id [id number] Blood Component RBC, Leukoreduced -3 Transfused 30 Mar 1999 Unit Number Id [id number] Historical Provider BLOOD BANK PRODUCT ORDERABLE S Performing Organization Address City/State/ZIP Code Phon e Number [facility] - [address] [place], [place] [address] [facility] Cytology (03/29/1999 12:45 PM CDT) Specimen Anatomical Collection Method Collection Time Receive d Time (Source) Location / / Volume Laterality 03/29/1999 12:45 03/29/1999 PM CDT 12:45 PM CDT Narrative [facility] - 03/29/1999 12:45 PM CDT [id number] Cytology - Fine Needle Aspira te Requested By: ? Suzanne Mei M.D. ?([id number]) ?? DIAGNOSIS: ?? Liver, fine needle aspiration biopsy : ?Aspirate smear-Negative for neoplasm. ?Core biopsy-Cirrhosis with a broad area of scar, interface necroinflammatory activity and ?? cholestasis. ??No evidence of neopla sm. ?? Seen in consultation with Dr. Scooby Salguero. ?? 30Mar1999 ?Al Barlow M.D.:[facility] Procedure Note 09/12/2017 29Mar1999 Cytology - Fine Needle Aspira te Requested By: Suzanne Mei M.D. ([id number]) DIAGNOSIS: Liver, fine needle aspiration biopsy: Aspirate smear-Negative for neoplasm. Core biopsy-Cirrhosis with a broad area of scar, interface necroinflammatory activity and cholestasis. No evidence of neoplasm. Seen in consultation with Dr. Scooby Motley i. [id number] Al Barlow M.D.:[facility] Suzanne Mei M.D. LAB PATHOLOGY/CYTOLOGY ORDER OSMEL Performing Organization Address City/State/ZIP Code Phon e Number [facility] - [address] US Liver Biopsy (03/29/1999 12:25 PM CDT) Anatomical Region Laterality Modality Abdomen N/A Ultrasound Specimen (Source) Anatomical Collection Method Collection Time Re ceived Time Location / / Volume Laterality 03/29/1999 12:25 PM CDT Narrative 03/29/1999 1:27 PM CDT 29-Mar-1999 12:25:00 ??Exam: US Biopsy Liver Indications: liver bx mass no scan ? see card ORIGINAL REPORT - 29-Mar-1999 13:27:00 I:[phone],771.459,790.562, D:771.3904,7 71.459,790.457 The procedure, goals and risks of liver biopsy and paracentesis were discussed with the patient and Dr. Wolfe. The patient elected to proceed. ??Under realtime ultrasound guidance, sterile technique and local anesthesia a single pass was made through the approximately 3cm hyperecphoic pedunculated lesion arising from the right hepatic lobe posteriorly. ?? A right lower quadrant paracentesis was subsequently performed with a 19 gauge catheter. Approximately 1700cc's of blood-tinged fluid was obtained and a specimen sent for tests as per Dr. Wolfe. ??N o immediate complication. ??Patient shay rated the procedure well and was transfered to the floor for further observation. Electronically signed by: ?? Janette Mei MD. ??[phone] 29-Mar-1999 13: 27 Procedure Note Suzanne Mei M.D. - 09/29/2017For matting of this note might be different from the original. 29-Mar-1999 12:25:00 Exam: US Biopsy Danielle er Indications: liver bx mass no scan see c lydia ORIGINAL REPORT - 29-Mar-1999 13:27:00 I:[phone],771.459,790.562, D:771.3904,7 71.459,790.457 The procedure, goals and risks of liver biopsy and paracentesis were discussed with the patient and Dr. Wolfe. The patient elected to proceed. Under realtime ultrasound guidance, sterile technique and local anesthesia a single pass was made throug h the approximately 3cm hyperecphoic pedunculated lesion arising from the right hepatic lobe posteriorly. A right lower quadrant paracentesis was subsequently performed with a 19 gauge catheter. Approximately 1700cc's of blood-tinged fluid was obtained and a specimen sent for tests as per Dr. Wolfe. No immediate complication. Patient tolerated the proc edure well and was transfered to the floor for further observation. Electronically signed by: Janette Mei MD. [phone] 29-Mar-1999 13:27 Jaxson Wolfe M.D. IMG US PROCEDURES US Paracentesis with Imaging Guidance (03/29/1999 12:24 PM CDT) Anatomical Region Laterality Modality Abdomen N/A Ultrasound Specimen (Source) Anatomical Collection Method Collection Time Re ceived Time Location / / Volume Laterality 03/29/1999 12:24 PM CDT Narrative 03/29/1999 1:27 PM CDT 29-Mar-1999 12:24:00 ??Exam: US Paracentesis Indications: liver bx mass no scan ? see card ORIGINAL REPORT - 29-Mar-1999 13:27:00 I:[phone],771.459,790.562, D:771.3904,7 71.459,790.457 The procedure, goals and risks of liver biopsy and paracentesis were discussed with the patient and Dr. Wolfe. The patient elected to proceed. ??Under realtime ultrasound guidance, sterile technique and local anesthesia a single pass was made through the approximately 3cm hyperecphoic pedunculated lesion arising from the right hepatic lobe posteriorly. ?? A right lower quadrant paracentesis was subsequently performed with a 19 gauge catheter. Approximately 1700cc's of blood-tinged fluid was obtained and a specimen sent for tests as per Dr. Wolfe. ??N o immediate complication. ??Patient shay rated the procedure well and was transfered to the floor for further observation. Electronically signed by: ?? Janette Mei MD. ??[phone] 29-Mar-1999 13: 27 Procedure Note Suzanne Mei M.D. - 09/29/2017For matting of this note might be different from the original. 29-Mar-1999 12:24:00 Exam: US Paracentes is Indications: liver bx mass no scan see jamal freeman ORIGINAL REPORT - 29-Mar-1999 13:27:00 I:[phone],771.459,790.562, D:771.3904,7 71.459,790.457 The procedure, goals and risks of liver biopsy and paracentesis were discussed with the patient and Dr. Wolfe. The patient elected to proceed. Under realtime ultrasound guidance, sterile technique and local anesthesia a single pass was made throug h the approximately 3cm hyperecphoic pedunculated lesion arising from the right hepatic lobe posteriorly. A right lower quadrant paracentesis was subsequently performed with a 19 gauge catheter. Approximately 1700cc's of blood-tinged fluid was obtained and a specimen sent for tests as per Dr. Wolfe. No immediate complication. Patient tolerated the proc edure well and was transfered to the floor for further observation. Electronically signed by: Janette Mei MD. [phone] 29-Mar-1999 13:27 Jaxson Wolfe M.D. [facility] PROCEDURES Prepare fresh frozen plasma (03/29/1999 12:39 AM CDT) Specimen Anatomical Collection Method Collection Time Receive d Time (Source) Location / / Volume Laterality 03/29/1999 12:39 03/29/1999 AM CDT 10:38 AM CDT Narrative [facility] 03/29/1999 12:39 AM CDT 29 Mar 1999 ?[id number] ?Ro ?00:39 ?? FFP TRF Order: ?Blood Component ?F FP, Thawed ?Transfused ? 29 Mar 1999 ?Unit Number Id ? [id number] ?Blood Component ?F FP, Thawed ?Transfused ? 29 Mar 1999 ?Unit Number Id ? [id number] ?Blood Component ?F FP, Thawed ?Transfused ? 29 Mar 1999 ?Unit Number Id ? [id number] ?Blood Component ?F FP, Thawed ?Transfused ? 29 Mar 1999 ?Unit Number Id ? [id number] Procedure Note 10/08/2017 29 Mar 1999 [id number] Ro 00:39 FFP TRF Order: Blood Component FFP, Thawed Transfused 29 Mar 1999 Unit Number Id [id number] Blood Component FFP, Thawed Transfused 29 Mar 1999 Unit Number Id [id number] Blood Component FFP, Thawed Transfused 29 Mar 1999 Unit Number Id [id number] Blood Component FFP, Thawed Transfused 29 Mar 1999 Unit Number Id [id number] Historical Provider BLOOD BANK PRODUCT ORDERABLE S Performing Organization Address City/[facility] Phon e Number [facility] - [address] [place] [address] [facility] Prepare platelets (03/29/1999 12:37 AM CDT) Specimen Anatomical Collection Method Collection Time Receive d Time (Source) Location / / Volume Laterality 03/29/1999 12:37 03/29/1999 7:10 AM CDT AM CDT Narrative [facility] - 03/29/1999 12:37 AM CDT 29 Mar 1999 ?[id number] ?Ro ?00:37 ?? Platelet TRF Order: ?Blood Component ?P latelets, Pooled ?Transfused ? 29 Mar 1999 ?Unit Number Id ? [id number] Procedure Note 10/08/2017 29 Mar 1999 [id number] Ro 00:37 Platelet TRF Order: Blood Component Platelets, Pooled Transfused 29 Mar 1999 Unit Number Id [id number] Historical Provider BLOOD BANK PRODUCT ORDERABLE S Performing Organization Address City/[facility] Phon e Number [facility] - [address] [phone] [facility] Prepare fresh frozen plasma (03/28/1999 11:00 PM CDT) Specimen Anatomical Collection Method Collection Time Receive d Time (Source) Location / / Volume Laterality 03/28/1999 11:00 03/29/1999 PM CDT 12:24 AM CDT Narrative [facility] - 03/28/1999 11:00 PM CDT 28 Mar 1999 ?[id number] ?Ro ?23:00 ?? FFP TRF Order: ?Blood Component ?F FP, Thawed ?Transfused ? 28 Mar 1999 ?Unit Number Id ? [id number] ?Blood Component ?F FP, Thawed ?Transfused ? 28 Mar 1999 ?Unit Number Id ? [id number] ?Blood Component ?F FP, Thawed ?Transfused ? 28 Mar 1999 ?Unit Number Id ? [id number] ?Blood Component ?F FP, Thawed ?Transfused ? 28 Mar 1999 ?Unit Number Id ? [id number] Procedure Note 10/08/2017 28 Mar 1999 [id number] Ro 23:00 FFP TRF Order: Blood Component FFP, Thawed Transfused 28 Mar 1999 Unit Number Id [id number] Blood Component FFP, Thawed Transfused 28 Mar 1999 Unit Number Id [id number] Blood Component FFP, Thawed Transfused 28 Mar 1999 Unit Number Id [id number] Blood Component FFP, Thawed Transfused 28 Mar 1999 Unit Number Id [id number] Historical Provider BLOOD BANK PRODUCT ORDERABLE S Performing Organization Address City/State/ZIP Code Phon e Number [facility] - [address] [place], [place] [address] [facility] documented in this encounter Visit Diagnoses Not on filedocumented in this encounter
--- OUTSIDE RECORDS SUMMARY | 2022-04-13 12:50 | XMS_ITS | Encounter Summary ---
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 [address] [place] [phone] 04/25/2022 Office Visit Otorhinolaryngology Dex Matta APRN, C.N.P., M.S.N. [address] [place] [phone] 05/08/2022 Appointment Laboratory Medicine Angélica Granger P.A.-C. [address] [place] [address] [phone] 05/08/2022 Clinical Admitting/Central Communication Scheduling 05/10/2022 Appointment Radiology Jeremie Rose M.D. [address] [place] [phone] 05/10/2022 Comprehensive Visit Orthopedic Surgery Warner Graves M.D. [address] [place] [address] [phone] 05/22/2022 Appointment Laboratory Medicine Angélica Granger P.A.-CDemetrius [address] [place] [phone] 06/05/2022 Appointment Laboratory Medicine Angélica Granger P.A.-CDemetrius [address] [place] [phone] 06/19/2022 Appointment Laboratory Medicine Angélica Granger P.A.-C. [address] [place] [phone] 07/03/2022 Appointment Laboratory Medicine Angélica Granger P.A.-C. [address] [place] [phone] 07/17/2022 Appointment Laboratory Medicine Angélica Granger P.A.-C. [address] [place] [phone] 07/31/2022 Appointment Laboratory Medicine Angélica Granger P.A.-C. [address] [place] [phone] 08/14/2022 Appointment Laboratory Medicine Angélica Granger P.A.-C. [address] [place] [phone] 08/28/2022 Appointment Laboratory Medicine Angélica Granger P.A.-C. [address] [place] [phone] documented as of this encounter Visit Diagnoses Not on filedocumented in this encounter Additional Health Concerns Infection Onset Date Last Indicated Resolved Time COVID19 Pending 12/13/2019 12/13/2019 12/14/2019 11:03 AM CDT COVID19 Pending 01/26/2020 01/27/2020 01/28/2020 12:12 AM CDT documented as of this encounter Care Teams Commercial Pest Control Representative Relationship Specialty Start Date End Date Elsewhere, Pcp PCP - General Family Medicine 07/29/[address] [facility] - Laboratory Medicine 04/12/[address] [address] documented as of this encounter
--- OUTSIDE RECORDS SUMMARY | 2022-04-13 12:50 | XMS_ITS | Encounter Summary ---
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 [address] [place] [phone] 04/25/2022 Office Visit Otorhinolaryngology Dex Matta APRN, C.N.P., M.S.N. [address] [place] [phone] 05/08/2022 Appointment Laboratory Medicine Angélica Granger P.A.-C. [address] [place] [address] [phone] 05/08/2022 Clinical Admitting/Central Communication Scheduling 05/10/2022 Appointment Radiology Jeremie Rose M.D. [address] [place] [phone] 05/10/2022 Comprehensive Visit Orthopedic Surgery Warner Graves M.D. [address] [place] [address] [phone] 05/22/2022 Appointment Laboratory Medicine Angélica Granger P.A.-CDemetrius [address] [place] [address] [phone] 06/05/2022 Appointment Laboratory Medicine Angélica Granger P.A.-CDemetrius [address] [place] [address] [phone] 06/19/2022 Appointment Laboratory Medicine Angélica Granger P.A.-C. [address] [place] [phone] 07/03/2022 Appointment Laboratory Medicine Angélica Granger P.A.-C. [address] [place] [phone] 07/17/2022 Appointment Laboratory Medicine Angélica Granger P.A.-C. [address] [place] [phone] 07/31/2022 Appointment Laboratory Medicine Angélica Granger P.A.-C. [address] [place] [phone] 08/14/2022 Appointment Laboratory Medicine Angélica Granger P.A.-C. [address] [place] [phone] 08/28/2022 Appointment Laboratory Medicine Angélica Granger P.A.-C. [address] [place] [phone] documented as of this encounter Visit Diagnoses Not on filedocumented in this encounter Additional Health Concerns Infection Onset Date Last Indicated Resolved Time COVID19 Pending 12/13/2019 12/13/2019 12/14/2019 11:03 AM CDT COVID19 Pending 01/26/2020 01/27/2020 01/28/2020 12:12 AM CDT documented as of this encounter Care Teams Card Table Attendant Relationship Specialty Start Date End Date Elsewhere, Pcp PCP - General Family Medicine 07/29/17 [facility] - Laboratory Medicine 04/12/[address] [address] documented as of this encounter
--- OUTSIDE RECORDS SUMMARY | 2022-04-13 12:50 | XMS_ITS | Encounter Summary ---
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 [address] [place] [phone] 04/25/2022 Office Visit Otorhinolaryngology Dex Matta APRN, C.N.P., M.S.N. [address] [place] [address] [phone] 05/08/2022 Appointment Laboratory Medicine Angélica Granger P.A.-C. [address] [place] [address] [phone] 05/08/2022 Clinical Admitting/Central Communication Scheduling 05/10/2022 Appointment Radiology Jeremie Rose M.D. [address] [place] [phone] 05/10/2022 Comprehensive Visit Orthopedic Surgery Warner Graves M.D. [address] [place] [address] [phone] 05/22/2022 Appointment Laboratory Medicine Angélica Granger P.A.-CDemetrius [address] [place] [address] [phone] 06/05/2022 Appointment Laboratory Medicine Angélica Granger P.A.-CDemetrius [address] [place] [address] [phone] 06/19/2022 Appointment Laboratory Medicine Angélica Granger P.A.-C. [address] [place] [phone] 07/03/2022 Appointment Laboratory Medicine Angélica Granger P.A.-C. [address] [place] [phone] 07/17/2022 Appointment Laboratory Medicine Angélica Granger P.A.-C. [address] [place] [phone] 07/31/2022 Appointment Laboratory Medicine Angélica Granger P.A.-C. [address] [place] [phone] 08/14/2022 Appointment Laboratory Medicine Angélica Granger P.A.-C. [address] [place] [phone] 08/28/2022 Appointment Laboratory Medicine Angélica Granger P.A.-C. [address] [place] [phone] documented as of this encounter Visit Diagnoses Not on filedocumented in this encounter Additional Health Concerns Infection Onset Date Last Indicated Resolved Time COVID19 Pending 12/13/2019 12/13/2019 12/14/2019 11:03 AM CDT COVID19 Pending 01/26/2020 01/27/2020 01/28/2020 12:12 AM CDT documented as of this encounter Care Teams Supervisor [employer] Relationship Specialty Start Date End Date Elsewhere, Pcp PCP - General Family Medicine 07/29/17 [facility] - Laboratory Medicine 04/12/[address] [address] documented as of this encounter
--- OUTSIDE RECORDS SUMMARY | 2022-04-13 12:50 | XMS_ITS | Encounter Summary ---
:1955 Author Organization [facility] Address [address] [place] [address] Care Team Providers Name Role Phone Unavailable Primary Care Provider Unavailable Encounter Details Date Type Department Care Team Description 05/24/1999 - Hospital Encounter HX RST UNIT 10-2 05/30/1999 TRANSPLANT Social History Tobacco Use Types Packs/Day [...] at Date Recorded Male 05/16/2020 4:27 PM CATHODE MAKER documented as of this encounter Plan of Treatment Upcoming Encounters Date Type Specialty Care Team Description 04/24/2022 Appointment Laboratory Medicine Angélica Granger P.A.-C. [address] [place] [phone] 04/25/2022 Office Visit Otorhinolaryngology Dex Matta APRN, C.N.P., M.S.N. [address] [place] [phone] 05/08/2022 Appointment Laboratory Medicine Angélica Granger P.A.-C. [address] [place] [phone] 05/08/2022 Clinical Admitting/Central Communication Scheduling 05/10/2022 Appointment Radiology Jeremie Rose M.D. [address] [place] [phone] 05/10/2022 Comprehensive Visit Orthopedic Surgery Warner Graves M.D. [address] [place] [phone] 05/22/2022 Appointment Laboratory Medicine Angélica Granger P.A.-C. [address] [place] [phone] 06/05/2022 Appointment Laboratory Medicine Angélica Granger P.A.-C. [address] [place] [phone] 06/19/2022 Appointment Laboratory Medicine Angélica Granger P.A.-C. [address] [place] [phone] 07/03/2022 Appointment Laboratory Medicine Angélica Granger P.A.-C. [address] [place] [phone] 07/17/2022 Appointment Laboratory Medicine Angélica Granger P.A.-C. [address] [place] [phone] 07/31/2022 Appointment Laboratory Medicine Angélica Granger P.A.-C. [address] [place] [phone] 08/14/2022 Appointment Laboratory Medicine Angélica Granger P.A.-C. [address] [place] [phone] 08/28/2022 Appointment Laboratory Medicine Angélica Granger P.A.-C. [address] [place] [phone] documented as of this encounter Procedures Procedure Name Priority Date/Time Associated Comments Diagnosis IR PERCUTANEOUS Routine 05/29/1999 9:21 Results f or this TRANSHEPATIC BILIARY AM CATHODE MAKER procedu re are in DRAIN EXCHANGE the results section. PREPARE PLATELETS Routine 05/26/1999 12:16 Result s for this PM CATHODE MAKER procedure are i n the results section. DX CHEST PORTABLE 1 VIEW Routine 05/26/1999 11:29 Results for this AM CATHODE MAKER procedure are i n the results section. ECG Routine 05/26/1999 7:35 Results for this AM CATHODE MAKER procedure are i n the results section. X-RAY REPLACE Routine 05/26/1999 5:32 Results f or this AM CATHODE MAKER procedure are i n the results section. US ABDOMEN COMPLETE WITH Routine 05/25/1999 4:12 Results for this LIVER DOPPLER PM CATHODE MAKER procedure are in the results section. ECG Routine 05/25/1999 10:23 Results for this AM CATHODE MAKER procedure are i n the results section. DX CHEST PORTABLE 1 VIEW Routine 05/25/1999 10:14 Results for this AM CATHODE MAKER procedure are i n the results section. DX ABDOMEN PORTABLE Routine 05/25/1999 9:24 Resul ts for this ANTERIOR POSTERIOR 1 AM CATHODE MAKER procedu re are in VIEW the results section. HXGENERAL PATHOLOGY Routine 05/25/1999 8:48 Resul ts for this REPORT AM CATHODE MAKER procedure are i n the results section. PREPARE CRYOPRECIPITATE Routine 05/25/1999 7:24 R esults for this AM CATHODE MAKER procedure are i n the results section. PREPARE FRESH FROZEN Routine 05/25/1999 5:22 Resu lts for this PLASMA AM CATHODE MAKER procedure are i n the results section. HXINTRA-OP AUTO TX Routine 05/25/1999 3:50 Result s for this AM CATHODE MAKER procedure are i n the results section. PREPARE PLATELETS Routine 05/25/1999 3:48 Results for this AM CATHODE MAKER procedure are i n the results section. PREPARE RED BLOOD CELLS Routine 05/24/1999 8:30 R esults for this PM CATHODE MAKER procedure are i n the results section. ECG Routine 05/24/1999 8:26 Results for this PM CATHODE MAKER procedure are i n the results section. DX CHEST AP OR PA AND Routine 05/24/1999 7:55 Res ults for this LATERAL 2 VIEWS PM CATHODE MAKER procedure ar e in the results section. documented in this encounter Results IR Percutaneous Transhepatic Biliary Drain Exchange (05/29/1999 9:21 AM CATHODE MAKER) Anatomical Region Laterality Modality Abdomen N/A X-Ray Angiography Specimen (Source) Anatomical Collection Method Collection Time Re ceived Time Location / / Volume Laterality 05/29/1999 9:21 AM CATHODE MAKER Narrative 05/29/1999 9:23 AM CATHODE MAKER 29-May-1999 09:21:00 ??Exam: V&IRAD BILIARY TUBE CHECK Indications: fl. time 3.0 min ORIGINAL REPORT - 29-May-1999 09:23:00 Tube cholangiogram shows patent duct-to- duct anastomosis. The intra hepatic ducts and common hepatic duct of the donor are normal. There is prompt flow of contrast material via the [place] distal common bile duct into the duodenum. There is fa irly easy reflux into the pancreatic ductal system. CON 60%, 50cc Electronically signed by: ?? Janette Benavidez MD. ??[id number] 29-May-1999 09 :23 Procedure Note Serena Benavidez M.D. - 09/29/2017Forma tting of this note might be different from the original. 29-May-1999 09:21:00 Exam: V&IRAD BILIAR Y TUBE CHECK Indications: fl. time 3.0 min ORIGINAL REPORT - 29-May-1999 09:23:00 Tube cholangiogram shows patent duct-to- duct anastomosis. The intra hepatic ducts and common hepatic duct of the donor are normal. There is prompt flow of contrast material via the [place] distal common bile duct into the duodenum. There is fairly easy reflux into the pancreatic ductal system. CON 60%, 50cc Electronically signed by: Janette Benavidez MD. [id number] 29-May-1999 09:2 3 Nicholas Newberry M.D. IMG IR PROCEDURES Prepare platelets (05/26/1999 12:16 PM CATHODE MAKER) Specimen Anatomical Collection Method Collection Time Receive d Time (Source) Location / / Volume Laterality 05/26/1999 12:16 05/26/1999 4:39 PM CATHODE MAKER PM CATHODE MAKER Narrative [facility] - 05/26/1999 12:16 PM CATHODE MAKER 26 May 1999 ?[id number] ?Ro ?12:16 ?? Platelet TRF Order: ?Blood Component ?P latelets, Pooled ?Issued ? 26 May 1999 ?Transfused Unit Id ? [id number] Procedure Note 10/08/2017 26 May 1999 [id number] Ro 12:16 Platelet TRF Order: Blood Component Platelets, Pooled Issued 26 May 1999 Transfused Unit Id [id number] Historical Provider BLOOD BANK PRODUCT ORDERABLE S Performing Organization Address City/State/ZIP Code Phon e Number [facility] - [address] [place], [place] [address] [facility] DX Chest Portable 1 View (05/26/1999 11:29 AM CATHODE MAKER) Anatomical Region Laterality Modality Chest N/A Radiographic Imaging Specimen (Source) Anatomical Collection Method Collection Time Re ceived Time Location / / Volume Laterality 05/26/1999 11:29 AM CATHODE MAKER Narrative 05/27/1999 10:56 AM CATHODE MAKER 26-May-1999 11:29:00 ??Exam: Portable-Chest Indications: rt cvp line placement ORIGINAL REPORT - 26-May-1999 11:35:00 Right CVC tip in high SVC. No pneumothor ax. Lungs clear. Electronically signed by: ?? Lynn Tejada [phone] ([id number]) 26-May-19 99 11:35 I have reviewed the films/images and agr ee with the above interpretation. Electronically signed by: ?? Aly Kirby MD. ??[id number] 27-May-1999 10:5 6 Procedure Note Sandra Kirby M.D. - 09/29/2017Fo rmatting of this note might be different from the original. 26-May-1999 11:29:00 Exam: Portable-Ches t Indications: rt cvp line placement ORIGINAL REPORT - 26-May-1999 11:35:00 Right CVC tip in high SVC. No pneumothor ax. Lungs clear. Electronically signed by: Lynn Tejada [phone] ([id number]) 26-May-19 99 11:35 I have reviewed the films/images and agr ee with the above interpretation. Electronically signed by: Aly Kirby MD. [id number] 27-May-1999 10:56 Marcial Hickey M.D. IMG DIAGNOSTIC IMAGING [facility] ECG 12 Lead (05/26/1999 7:35 AM [facility]) Specimen (Source) Anatomical Collection Method Collection Time Re ceived Time Location / / Volume Laterality 05/26/1999 7:35 AM CATHODE MAKER [facility] - 05/26/1999 9:09 AM CATHODE MAKER [id number] 07:35 VENTRICULAR RATE 60 Normal sinus rhythm Normal ECG When compared with ECG of 25-MAY-1999 10 :23, Vent. rate has decreased 902^FAYE ??^LACEY Procedure Note Provider, Historical - 09/16/2017Formatt ing of this note might be different from the original. [id number] 07:35 VENTRICULAR RATE 60 Normal sinus rhythm Normal ECG When compared with ECG of 25-MAY-1999 10 :23, Vent. rate has decreased 902^FAYE PETTIT^LACEY Historical Provider ECG ORDERABLES Performing Organization Address City/State/ZIP Code Phon e Number [facility] [address] [place] [address], U SA X-ray Replace (05/26/1999 5:32 AM CATHODE MAKER) Anatomical Region Laterality Modality N/A Radiographic Imaging Specimen (Source) Anatomical Collection Method Collection Time Re ceived Time Location / / Volume Laterality 05/26/1999 5:32 AM CATHODE MAKER Narrative 05/26/1999 8:01 AM CATHODE MAKER 26-May-1999 05:32:00 ??Exam: X-ray Replace Indications: day 1 OLT tx protocol ORIGINAL REPORT - 26-May-1999 08:01:00 Tip of the central line in main pulmonar y artery. Slight pulmonary venous congestion. Electronically signed by: ?? Saeed Salinas MD. ??[id number] 26-May-1999 08 :01 Procedure Note Willis Salinas M.D. - 09/29/2017Form atting of this note might be different from the original. 26-May-1999 05:32:00 Exam: X-ray Repla ce Indications: day 1 OLT tx protocol ORIGINAL REPORT - 26-May-1999 08:01:00 Tip of the central line in main pulmonar y artery. Slight pulmonary venous congestion. Electronically signed by: Saeed Salinas MD. [id number] 26-May-1999 08:0 1 Marcial Hickey M.D. IMG DIAGNOSTIC IMAGING PROCE IKE US Abdomen and Abdomen Doppler (05/25/1999 4:12 PM CATHODE MAKER) Anatomical Region Laterality Modality Abdomen N/A Ultrasound Specimen (Source) Anatomical Collection Method Collection Time Re ceived Time Location / / Volume Laterality 05/25/1999 4:12 PM CATHODE MAKER Narrative 05/25/1999 4:31 PM CATHODE MAKER 25-May-1999 16:12:00 ??Exam: US Abd Cmpl with Doppler Cmpl Indications: day one;liver tx ?PORTABLE ORIGINAL REPORT - 25-May-1999 16:31:00 [id number] ??Normal-appearing day 1 liver transplant. No evidence of bile duct dilatation. There is arterial flow in both lobes of the transplant with high resistance waveforms normally seen in the early stages of transplantation. The hepatic veins, IVC and portal veins are patent with flow in the normal direction. The spleen is not enlarged. No evidence of hydronephrosis in either kidney. The pancreas is not well seen. [id number] Electronically signed by: ?? Char Thompson MD. ??[phone] 25-May-1999 16:31 Procedure Note Alan Thompson M.B., Sada Del Rosario - 09/29 25-May-1999 16:12:00 Exam: US Abd Cmpl w ith Doppler Cmpl Indications: day one;liver tx PORTABLE ORIGINAL REPORT - 25-May-1999 16:31:00 [id number] Normal-appearing day 1 liver t ransplant. No evidence of bile duct dilatation. There is arterial flow in both lobes of the transplant with high resistance waveforms normally seen in the early stages of transplantation. The hepatic veins, IVC and portal veins are patent with flow in the normal direction. The spleen is not enlarged. No evidence of hydronephrosis in either kidney. The pancreas is not well seen. [id number] Electronically signed by: Char Thompson MD. [phone] 25-May-1999 16:31 Marcial Hickey M.D. IMG US PROCEDURES ECG 12 Lead (05/25/1999 10:23 AM CATHODE MAKER) Specimen (Source) Anatomical Collection Method Collection Time Re ceived Time Location / / Volume Laterality 05/25/1999 10:23 AM CATHODE MAKER [facility] - 05/25/1999 11:34 AM CATHODE MAKER [id number] 10:23 VENTRICULAR RATE 108 Sinus tachycardia Possible Inferior infarct When compared with ECG of 24-MAY-1999 20 :26, Vent. rate has increased BY ??60 BPM Borderline criteria for Inferior infarct are now present QT has lengthened 9999^FAYE ??^LACEY Procedure Note Provider, Historical - 09/16/2017Formatt ing of this note might be different from the original. [id number] 10:23 VENTRICULAR RATE 108 Sinus tachycardia Possible Inferior infarct When compared with ECG of 24-MAY-1999 20 :26, Vent. rate has increased BY 60 BPM Borderline criteria for Inferior infarct are now present QT has lengthened 9999^FAYE PETTIT^LACEY Historical Provider ECG ORDERABLES Performing Organization Address City/State/ZIP Code Phon e Number [facility] [address] [place] [address], U SA DX Chest Portable 1 View (05/25/1999 10:14 AM CATHODE MAKER) Anatomical Region Laterality Modality Chest N/A Radiographic Imaging Specimen (Source) Anatomical Collection Method Collection Time Re ceived Time Location / / Volume Laterality 05/25/1999 10:14 AM CATHODE MAKER Narrative 05/25/1999 10:34 AM CATHODE MAKER 25-May-1999 10:14:00 ??Exam: Portable-Chest Indications: POST-LIVER TRANSPLANT ORIGINAL REPORT - 25-May-1999 10:34:00 Tip of the SG catheter is in the LPA. Thao ngs are clear. Tubes and lines. Electronically signed by: ?? Hemant Pratt ?[id number] 25-May-1999 1 0:34 Procedure Note Pedro Pratt M.D. - 09/29/2017Form atting of this note might be different from the original. 25-May-1999 10:14:00 Exam: Portable-Ches t Indications: POST-LIVER TRANSPLANT ORIGINAL REPORT - 25-May-1999 10:34:00 Tip of the SG catheter is in the LPA. Thao ngs are clear. Tubes and lines. Electronically signed by: Hemant Pratt MD [id number] 25-May-1999 10:34 Marcial Hickey M.D. IMG DIAGNOSTIC IMAGING PROCE DURES DX Abdomen Portable Anterior Posterior 1 View (05/25/1999 9:24 AM CATHODE MAKER) Anatomical Region Laterality Modality Abdomen N/A Radiographic Imaging Specimen (Source) Anatomical Collection Method Collection Time Re ceived Time Location / / Volume Laterality 05/25/1999 9:24 AM CATHODE MAKER Narrative 05/28/1999 8:55 AM CATHODE MAKER 25-May-1999 09:24:00 ??Exam: Portable-Abdomen Indications: Liver transplant in OR#[id number]. ORIGINAL REPORT - 28-May-1999 08:55:00 Negative for P.O. purposes. Electronically signed by: ?? Roe Kirkpatrick M.D. ?? [id number] 28-May-1999 08:55 Procedure Note Neo Kirkpatrick M.D. - 09/29/2017Form atting of this note might be different from the original. 25-May-1999 09:24:00 Exam: Portable-Abdo men Indications: Liver transplant in OR#74. ORIGINAL REPORT - 28-May-1999 08:55:00 Negative for P.O. purposes. Electronically signed by: Roe Kirkpatrick M.D. [phone] 28-May-1999 08 :55 Leonid Chen M.D. IMG DIAGNOSTIC IMAGING PROCE IKE Hx general Pathology Report (05/25/1999 8:48 AM CATHODE MAKER) Specimen Anatomical Collection Method Collection Time Receive d Time (Source) Location / / Volume Laterality 05/25/1999 8:48 AM 9 8:48 CATHODE MAKER AM CATHODE MAKER Narrative [facility] - 05/25/1999 8:48 AM CATHODE MAKER [id number] General Biopsy Requested By: ? Leonid Chen M.D. ? ([id number]) ?? TISSUE DESCRIPTION: ?? Recipient's hepatectomy specimen (A2 --RL liver needle bx, 0.9 x 0.6 x 0.6 cm; A3--LL liver ?? needle bx, 1.1 cm; B1,B2--RL liver w edge specimens; B3,B4--LL liver wedge specimens; D1-- ?? recipient gallbladder); A1--donor li gerry wedge bx; C1--donor gallbladder. ?? [id number] A1, A2, A3, B1, B2, B3, B 4, C1, D1 ?? OLT 1033 ?? DIAGNOSIS: ? 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 ??Gallbladder : ??Chronic cholecystitis with mild wall thickening. ? OLT 1033 (donor specimen prior to transplantation): ??Liver: ??Normal. Gallbladder: ??Mild ?? chronic cholecystitis without signif icant wall thickening. ?? COMMENT: ? (Recipient's hepatectomy specimen ): ??The excised fresh liver weighs 1,790 g and measures 26 ?? x 17 x 11 cm. ??The surfaces and cut surfaces show oligonodular liver with the 0.5 to 6.0 cm ?? nodules located almost exclusively u nder the capsule in the caudate and right lobe regions. ? The nodules have a mottled cholestat ic appearance. ??The remainder of the liver (90% of the ?? parenchyma) is homogenous and normal in color. ??The gallbladder measures 13 x 7 x 3 cm, opened, ?? and does not contain any stones. ??M icroscopically, the liver nodules correlate to large ?? regenerative nodules, some of which have patchy cholestasis and focal nodular hyperplasia-like ?? fibrosis within them. ??The majority of the liver correlating to the grossly homogenous areas ?? shows collapse of parenchyma with sm all groups of regenerative hepatocytes. ??These small ?? hepatocyte clusters are variably cho lestatic and occasionally contain copper confirming ?? cholate stasis. ??The portal tracts show intact bile ducts, portal veins and hepatic arteries ?? with no significant inflammation. Pe riportal and septal fibrosis is not present (MT). ??An iron ?? stain is negative. ??There is no morales dence of neoplasia. ? (Donor specimen prior to transpla ntation): ??The donor gallbladder measures 6 x 3 x 2 cm, ?? opened, and does not contain any sto stu. ?? [id number] ?Al Barlow M.D.:rxc Procedure Note 09/12/2017 [id number] General Biopsy Requested By: Leonid Chen M.D. ([id number]) TISSUE DESCRIPTION: Recipient's hepatectomy specimen (A2--R L liver needle bx, 0.9 x 0.6 x 0.6 cm; A3--LL liver needle bx, 1.1 cm; B1,B2--RL liver wedg e specimens; B3,B4--LL liver wedge specimens; D1-- recipient gallbladder); A1--donor liver wedge bx; C1--donor gallbladder. [id number] A1, A2, A3, B1, B2, B3, B4, C1, D1 OLT 1033 DIAGNOSIS: OLT 1033 (recipient's hepatectomy speci men): Liver: Submassive hepatic necrosis with impaired regeneration. Gallbladder: Chr onic cholecystitis with mild wall thickening. OLT 1033 (donor specimen prior to trans plantation): Liver: Normal. Gallbladder: Mild chronic cholecystitis without significa nt wall thickening. COMMENT: (Recipient's hepatectomy specimen): The excised fresh liver weighs 1,790 g and measures 26 x 17 x 11 cm. The surfaces and cut surf aces show oligonodular liver with the 0.5 to 6.0 cm nodules located almost exclusively unde r the capsule in the caudate and right lobe regions. The nodules have a mottled cholestatic appearance. The remainder of the liver (90% of the parenchyma) is homogenous and normal in color. The gallbladder measures 13 x 7 x 3 cm, opened, and does not contain any stones. Micros copically, the liver nodules correlate to large regenerative nodules, some of which hav e patchy cholestasis and focal nodular hyperplasia-like fibrosis within them. The majority of t he liver correlating to the grossly homogenous areas shows collapse of parenchyma with small groups of regenerative hepatocytes. These small hepatocyte clusters are variably choles tatic and occasionally contain copper confirming cholate stasis. The portal tracts show intact bile ducts, portal veins and hepatic arteries with no significant inflammation. Perip ortal and septal fibrosis is not present (MT). An iron stain is negative. There is no evidence of neoplasia. (Donor specimen prior to transplantatio n): The donor gallbladder measures 6 x 3 x 2 cm, opened, and does not contain any stones . [id number] Al Barlow M.D.:c Leonid Chen M.D. LAB PATHOLOGY/CYTOLOGY ORDER OSMEL Performing Organization Address City/State/ZIP Code Phon e Number [facility] [place] - [address] [place], [place] [address] [facility] Prepare cryoprecipitate (05/25/1999 7:24 AM CATHODE MAKER) Specimen Anatomical Collection Method Collection Time Receive d Time (Source) Location / / Volume Laterality 05/25/1999 7:24 AM 9 8:18 CATHODE MAKER AM CATHODE MAKER Narrative [facility] [place] [facility] - 05/25/1999 7:24 AM CATHODE MAKER 25 May 1999 ?[id number] ?Ro ?07:24 ?? Cryo TRF Order: ?Blood Component ?C ryoprecipitate, Pooled ?Issued ? 25 May 1999 ?Transfused Unit Id ? [id number] Procedure Note 10/08/2017 25 May 1999 [id number] Ro 07:24 Cryo TRF Order: Blood Component Cryoprecipitate, Pooled Issued 25 May 1999 Transfused Unit Id [id number] Historical Provider BLOOD BANK PRODUCT ORDERABLE S Performing Organization Address City/State/[facility] Phon e Number [facility] - [address] [place] [address] [facility] Prepare fresh frozen plasma (05/25/1999 5:22 AM CATHODE MAKER) Specimen Anatomical Collection Method Collection Time Receive d Time (Source) Location / / Volume Laterality 05/25/1999 5:22 AM 9 7:26 CATHODE MAKER AM CATHODE MAKER Narrative [facility] - 05/25/1999 5:22 AM CATHODE MAKER 25 May 1999 ?[id number] ?Ro ?05:22 ?? FFP TRF Order: ?Blood Component ?F FP, Thawed ?Issued ? 25 May 1999 ?Transfused Unit Id ? [id number] ?Blood Component ?F FP, Thawed ?Issued ? 25 May 1999 ?Transfused Unit Id ? [id number] ?Blood Component ?F FP, Thawed ?Issued ? 25 May 1999 ?Transfused Unit Id ? [id number] ?Blood Component ?F FP, Thawed ?Issued ? 25 May 1999 ?Transfused Unit Id ? [id number] ?Blood Component ?F FP, Thawed ?Issued ? 25 May 1999 ?Transfused Unit Id ? [id number] ?Blood Component ?F FP, Thawed ?Issued ? 25 May 1999 ?Transfused Unit Id ? [id number] Procedure Note 10/08/2017 25 May 1999 [id number] Ro 05:22 FFP TRF Order: Blood Component FFP, Thawed Issued 25 May 1999 Transfused Unit Id [id number] Blood Component FFP, Thawed Issued 25 May 1999 Transfused Unit Id [id number] Blood Component FFP, Thawed Issued 25 May 1999 Transfused Unit Id [id number] Blood Component FFP, Thawed Issued 25 May 1999 Transfused Unit Id [id number] Blood Component FFP, Thawed Issued 25 May 1999 Transfused Unit Id [id number] Blood Component FFP, Thawed Issued 25 May 1999 Transfused Unit Id [id number] Historical Provider BLOOD BANK PRODUCT ORDERABLE S Performing Organization Address City/State/ZIP Code Phon e Number [facility] - [address] [place], [place] [address] [facility] HX intra-Op Auto Tx (05/25/1999 3:50 AM CATHODE MAKER) Specimen Anatomical Collection Method Collection Time Receive d Time (Source) Location / / Volume Laterality 05/25/1999 3:50 AM 12/03/199 9 9:29 CATHODE MAKER AM CATHODE MAKER Narrative [facility] [place] - 05/25/1999 3:50 AM CATHODE MAKER 25 May 1999 ?[id number] ?Ro ?03:50 ?? Intra-op Auto TRF: ?Blood Component ?R BC, Intraoperatively ?Salvaged Liver Transplant ?Blood ?Issued ? 25 May 1999 ?Transfused Unit Id ? [id number] ?Blood Component ?R BC, Intraoperatively ?Salvaged Liver Transplant ?Blood ?Issued ? 25 May 1999 ?Transfused Unit Id ? [id number] ?Blood Component ?R BC, Intraoperatively ?Salvaged Liver Transplant ?Blood ?Issued ? 25 May 1999 ?Transfused Unit Id ? [id number] ?Blood Component ?R BC, Intraoperatively ?Salvaged Liver Transplant ?Blood ?Issued ? 25 May 1999 ?Transfused Unit Id ? [id number] Procedure Note 10/08/2017 25 May 1999 [id number] Ro 03:50 Intra-op Auto TRF: Blood Component RBC, Intraoperatively Salvaged Liver Transplant Blood Issued 25 May 1999 Transfused Unit Id [id number] Blood Component RBC, Intraoperatively Salvaged Liver Transplant Blood Issued 25 May 1999 Transfused Unit Id [id number] Blood Component RBC, Intraoperatively Salvaged Liver Transplant Blood Issued 25 May 1999 Transfused Unit Id [id number] Blood Component RBC, Intraoperatively Salvaged Liver Transplant Blood Issued 25 May 1999 Transfused Unit Id [id number] Historical Provider LAB HISTORICAL ORDERS Performing Organization Address City/State/ZIP Code Phon e Number [facility] - [address] [place], [place] [address] [facility] Prepare platelets (05/25/1999 3:48 AM CATHODE MAKER) Specimen Anatomical Collection Method Collection Time Receive d Time (Source) Location / / Volume Laterality 05/25/1999 3:48 AM 9 8:18 CATHODE MAKER AM CATHODE MAKER Narrative [facility] - 05/25/1999 3:48 AM CATHODE MAKER 25 May 1999 ?[id number] ?Ro ?03:48 ?? Platelet TRF Order: ?Blood Component ?P latelets, Leukoreduced ?Apheresis ?Issued ? 25 May 1999 ?Transfused Unit Id ? [id number] ?Blood Component ?P latelets, Leukoreduced ?Apheresis ?Issued ? 25 May 1999 ?Transfused Unit Id ? [id number] ?Blood Component ?P latelets, Pooled ?Issued ? 25 May 1999 ?Transfused Unit Id ? [id number] Procedure Note 10/08/2017 25 May 1999 [id number] Ro 03:48 Platelet TRF Order: Blood Component Platelets, Leukoreduced Apheresis Issued 25 May 1999 Transfused Unit Id [id number] Blood Component Platelets, Leukoreduced Apheresis Issued 25 May 1999 Transfused Unit Id [id number] Blood Component Platelets, Pooled Issued 25 May 1999 Transfused Unit Id [id number] Historical Provider BLOOD BANK PRODUCT ORDERABLE S Performing Organization Address City/State/ZIP Code Phon e Number [facility] - [address] [place] [phone] [facility] Prepare Red Blood Cells (05/24/1999 8:30 PM CATHODE MAKER) Specimen Anatomical Collection Method Collection Time Receive d Time (Source) Location / / Volume Laterality 05/24/1999 8:30 PM 199 9 8:10 CATHODE MAKER AM CATHODE MAKER Narrative [facility] - [facility] - 05/24/1999 8:30 PM CATHODE MAKER 24 May 1999 ?[id number] ? Ro ?20:30 ?? RBC TRF Order: ?ABO/RH ? O POS ?Antibody Screen ?N eg ?Blood Component ?R BC, -1 ?Issued ? 25 May 1999 ?Transfused Unit Id ? [id number] ?Blood Component ?R BC, -1 ?Issued ? 25 May 1999 ?Transfused Unit Id ? [id number] ?Blood Component ?R BC, -1 ?Issued ? 25 May 1999 ?Transfused Unit Id ? [id number] ?Blood Component ?R BC, -1 ?Issued ? 25 May 1999 ?Transfused Unit Id ? [id number] ?Blood Component ?R BC, -1 ?Issued ? 25 May 1999 ?Transfused Unit Id ? [id number] ?Blood Component ?R BC, -1 ?Issued ? 25 May 1999 ?Transfused Unit Id ? [id number] ?Blood Component ?R BC, -1 ?Issued ? 25 May 1999 ?Transfused Unit Id ? [id number] ?Blood Component ?R BC, -1 ?Issued ? 25 May 1999 ?Transfused Unit Id ? [id number] ?Blood Component ?R BC, -1 ?Issued ? 25 May 1999 ?Transfused Unit Id ? [id number] ?Blood Component ?R BC, -1 ?Issued ? 25 May 1999 ?Transfused Unit Id ? [id number] ?Blood Component ?R BC, -1 ?Issued ? 25 May 1999 ?Transfused Unit Id ? [id number] ?Blood Component ?R BC, -1 ?Issued ? 26 May 1999 ?Transfused Unit Id ? [id number] ?Blood Component ?R BC, -1 ?Issued ? 26 May 1999 ?Transfused Unit Id ? [id number] Procedure Note 10/08/2017 24 May 1999 [id number] Ro 20:30 RBC TRF Order: ABO/RH O POS Antibody Screen Neg Blood Component RBC, -1 Issued 25 May 1999 Transfused Unit Id [id number] Blood Component RBC, -1 Issued 25 May 1999 Transfused Unit Id [id number] Blood Component RBC, -1 Issued 25 May 1999 Transfused Unit Id [id number] Blood Component RBC, -1 Issued 25 May 1999 Transfused Unit Id [id number] Blood Component RBC, -1 Issued 25 May 1999 Transfused Unit Id [id number] Blood Component RBC, -1 Issued 25 May 1999 Transfused Unit Id [id number] Blood Component RBC, -1 Issued 25 May 1999 Transfused Unit Id [id number] Blood Component RBC, -1 Issued 25 May 1999 Transfused Unit Id [id number] Blood Component RBC, -1 Issued 25 May 1999 Transfused Unit Id [id number] Blood Component RBC, -1 Issued 25 May 1999 Transfused Unit Id [id number] Blood Component RBC, -1 Issued 25 May 1999 Transfused Unit Id [id number] Blood Component RBC, -1 Issued 26 May 1999 Transfused Unit Id [id number] Blood Component RBC, -1 Issued 26 May 1999 Transfused Unit Id [id number] Historical Provider BLOOD BANK PRODUCT ORDERABLE S Performing Organization Address City/State/ZIP Code Phon e Number [facility] - [address] [place], [place] [address] [facility] ECG 12 Lead (05/24/1999 8:26 PM CATHODE MAKER) Specimen (Source) Anatomical Collection Method Collection Time Re ceived Time Location / / Volume Laterality 05/24/1999 8:26 PM CATHODE MAKER [facility] - 05/24/1999 10:07 PM CATHODE MAKER [id number] 20:26 VENTRICULAR RATE 48 Marked sinus bradycardia Otherwise normal ECG When compared with ECG of 22-MAY-1999 13 :38, No significant change was found 912^FAYE ??^LACEY Procedure Note Provider, Historical - 09/16/2017Formatt ing of this note might be different from the original. [id number] 20:26 VENTRICULAR RATE 48 Marked sinus bradycardia Otherwise normal ECG When compared with ECG of 22-MAY-1999 13 :38, No significant change was found 912^FAYE PETTIT^LACEY Historical Provider ECG ORDERABLES Performing Organization Address City/State/ZIP Code Phon e Number [facility] [address] [place] [address], U SA DX Chest AP or PA and Lateral 2 Views (05/24/1999 7:55 PM CATHODE MAKER) Anatomical Region Laterality Modality Chest N/A Radiographic Imaging Specimen (Source) Anatomical Collection Method Collection Time Re ceived Time Location / / Volume Laterality 05/24/1999 7:55 PM CATHODE MAKER Narrative 05/25/1999 8:21 AM CATHODE MAKER 24-May-1999 19:55:00 ??Exam: Chest-- 2 Views Indications: pre-op olt ORIGINAL REPORT - 24-May-1999 21:16:00 Negative chest. Electronically signed by: ?? Saeed Lerma M.D. [id number]) 24-May-19 99 21:16 I have reviewed the films/images and agr ee with the above interpretation. Electronically signed by: ?? Hemant Pratt ?[id number] 25-May-1999 0 8:21 Procedure Note Pedro Pratt M.D. - 09/29/2017Form atting of this note might be different from the original. 24-May-1999 19:55:00 Exam: Chest-- 2 Vie ws Indications: pre-op olt ORIGINAL REPORT - 24-May-1999 21:16:00 Negative chest. Electronically signed by: Saeed Lerma M.D. [id number]) 24-May-19 99 21:16 I have reviewed the films/images and agr ee with the above interpretation. Electronically signed by: Hemant Pratt MD [id number] 25-May-1999 08:21 [facility] PROCE DURES documented in this encounter Visit Diagnoses Not on filedocumented in this encounter
== END 2022-04-13 13:28 | disposition home or self-care (01) ==
PROVIDERS: Emergency Provider Emergency Medicine Emergency Medical Services; PCP Surgery
DX: M94.0 Chondrocostal junction syndrome [Tietze] (principal); Z94.4 Liver transplant status; N19 Unspecified kidney failure; Z99.2 Dependence on renal dialysis; Z13.6 Encounter for screening for cardiovascular disorders
CPT/HCPCS: 36415; 71046; 80048; 85025; 93005; 93308; 96374; 96375; 99284; 99285; J1170; J2405

== ENCOUNTER 2022-05-17 16:29 | Emergency (ER) | payer MEDICARE, BC, SELFPAY ==
[2022-05-17 17:18] VITALS: BP 144/85; PULSE 76; RESP 24; O2SAT 96; BMI 23.6
[2022-05-17 17:28] VITALS: PULSE 77; RESP 24; TEMP 36.6; O2SAT 98
--- NOTE | 2022-05-17 17:37 | CRLHL7_ITS ---
For Patients: As a result of the Century Cures Act, medical imaging exams and procedure reports are released immediately into your electronic medical record. You may view this report before your referring provider. If you have questions, please contact your health care provider. INDICATION: Cough, liver transplant TECHNIQUE: Chest 2 views. COMPARISON: April 13, 2022 FINDINGS: Cardiovascular and mediastinum: Heart size and vasculature are normal in caliber and appearance. Mediastinum is within normal limits. Lungs and pleural spaces: There are some faint scattered opacities throughout both lungs. No sign of pleural effusion. No pneumothorax. Bones and soft tissues: No significant findings. IMPRESSION: Faint scattered opacities throughout both lungs could represent infection. Consider chest CT without IV contrast for further evaluation if clinically indicated. Dictated by Alena Garcia MD @ 05/17/2022 6:37:32 PM (Electronically Signed)
--- OUTSIDE RECORDS SUMMARY | 2022-05-17 18:14 | XMS_ITS | Clinical Summary ---
:1955 Author Organization [facility] [place] [address] Care Team Providers Name Role Phone Ryan [...] 01/20/2017 Medications Medication Sig Dispensed Refills Start Date End Date Status MULTIPLE VITAMIN TAB take 1 tablet by 0 Active oral route once daily with food Blood Pressure 1 Device 0 07/14/2013 Acti ve Monitor aspirin enteric Take 1 tablet by 0 07/14/2013 Active coated 81 mg tablet mouth once daily with a meal. Blood Pressure Test As directed. 1 Kit 0 07/14/2013 Active Kit-Medium kit mycophenolate Take 1 tablet by 0 04/18/2016 Active (CELLCEPT) 500 mg mouth every 12 tablet hours. miscellaneous As directed. 1 Each 0 01/20/2017 Ac tive medical supply (BLOOD PRESSURE CUFF) miscIndications: Essential hypertension levothyroxine Take 1 tablet by 3 11/11/2016 Active (SYNTHROID) 25 mcg mouth once daily. tablet predniSONE Take 1 tablet by 3 12/12/2016 A ctive (DELTASONE) 5 mg mouth once daily. tablet lamoTRIgine Take 1 tablet by 1 01/14/2017 Active (LAMICTAL) 200 mg mouth once daily. tablet medication order Calcium-magnesium 0 01/23/2017 Active composer , take 3 capsule by mouth twice daily. tacrolimus (PROGRAF) Take 2 capsules 0 01/23/2017 Active 0.5 mg capsule by mouth every 12 hours. atorvastatin Take 10 mg by 1 09/23/2018 Ac tive (LIPITOR) 10 mg mouth once daily. tablet doxazosin (Cardura) Take 0.5 Tablets 90 tablet. 3 12/18/2020 Active 8 mg tablet (4 mg) by mouth at bedtime. ondansetron (ZOFRAN) Take 4 mg by 0 11/29/2020 Active 4 mg tablet mouth every 8 hours if needed. torsemide (DEMADEX) Take 3 Tablets 3 12/18/2020 Active 10 mg tablet (30 mg) by mouth once daily. coenzyme q10 100 mg Daily 0 Active cap benzonatate Take 1 Capsule 30 Capsule 1 05/10/2021 A ctive (Tessalon Perles) (100 mg) by mouth 100 mg 3 times daily if capsuleIndications: needed for Cough. Chronic cough B Complex-Vitamin Take 1 Tablet by 0 05/26/2021 12/0 09/2021 Active C-Folic Acid 100-1 mouth. mg tab ipratropium 0 06/03/2021 Active (ATROVENT NASAL) 21 mcg (0.03 %) nasal spray loratadine TAKE 1 TABLET(10 90 Tablet 1 11/28/2021 A ctive (CLARITIN) 10 mg MG) BY MOUTH tabletIndications: EVERY DAY Chronic sinusitis, unspecified location montelukast TAKE 1 TABLET(10 90 Tablet 1 11/28/2021 Active (SINGULAIR) 10 mg MG) BY MOUTH tabletIndications: EVERY DAY Chronic sinusitis, unspecified location albuterol HFA Inhale 2 Puffs by 0 06/21/2021 Active (PRO-AIR; VENTOLIN; mouth every 6 PROVENTIL) 90 hours if needed. mcg/actuation inhaler Renate-Celestine Rx tablet TAKE 1 TABLET BY 0 09/08/2021 Active MOUTH DAILY WITH DINNER traZODone (DESYREL) Take 100 mg by 0 08/27/2021 Active 100 mg tablet mouth once daily if needed. trimethoprim-sulfame TAKE 1 TABLET BY 0 12/10/2021 Active thoxazole, 80-400 MOUTH AT BEDTIME mg, (BACTRIM SS; AFTER DIALYSIS SEPTRA SS) tab NIFEdipine Take 30 mg by 0 10/06/2021 Acti ve (PROCARDIA XL) 30 mg mouth once daily Extended-Release before a meal. tablet Lidocaine-Prilocaine Apply topically 0 09/19/2021 Active (EMLA) 2.5-2.5 % to affected cream area(s). voriconazole (Vfend) Take 1 Tablet 0 02/18/2022 Active 200 mg tablet (200 mg) by mouth two times daily before meals. azelastine 137 Inhale 1 mg into 0 Active mcg/actuation affected (ASTELIN) nasal nostril(s). spray Trelegy Ellipta Inhale 1 Puff by 0 02/13/2022 Active 200-62.5-25 mcg mouth once daily. inhaler amoxicillin (AMOXIL) TAKE 4 CAPSULES 4 capsule. 1 03/28/2022 Active 500 mg BY MOUTH BEFORE capsuleIndications: DENTAL History of joint APPOINTMENT replacement, unspecified joint valGANciclovir TAKE 1 TABLET BY 0 04/22/2022 Active (VALCYTE) 450 mg MOUTH EVERY OTHER tablet DAY. TAKE AFTER DIALYSIS ON DIALYSIS DAYS predniSONE Take 4 Tablets 21 Tablet 0 04/08/2022 04/17/2022 Ex pired (DELTASONE) 10 mg (40 mg) by mouth tabletIndications: once daily with a Wrist tendonitis meal for 3 days, THEN 2 Tablets (20 mg) once daily with a meal for 3 days, THEN 1 Tablet (10 mg) once daily with a meal for 3 days. Active Problems Problem Noted Date ESRD (end [...] Encounters Date Type Specialty Care Team Description 05/13/2022 Telephone Ryan Cole fyi (Op tic nerve inflammation an d swelling) 04/26/2022 Ancillary Procedure 04/26/2022 Ancillary Procedure 04/26/2022 Office Visit Ryan Cole Wrist P ain/problem (Left wrist) 04/26/2022 Travel 04/15/2022 Medical Messaging Ryan Cole, fo [place] up from thr 17th 04/13/2022 Orders Only Scanner <No scans attac hed> 04/08/2022 Office Visit Ryan Cole, Elbow I njury (Pain MD started first a bout 3 weeks); Wrist Pain/problem (S tarted about 2.5 weeks ago) 04/08/2022 Travel 03/29/2022 Orders Only Scanner <No scans attac hed> 03/29/2022 Orders Only Scanner <No scans attac hed> 03/29/2022 Orders Only Scanner <No scans attac hed> 02/18/2022 Preop Visit Ryan Cole, Preoper ative Exam (Right MD ankle surgery o n 03/06/22 [facility] in [place] by Dr. Tan. ) 02/18/2022 Travel from Last 3 Months Immunizations Name Administration [...] 10 days, have you been in contact with No / Unsu re 04/26/2022 7:51 AM CDT someone who was confirmed or suspected to have Coronavirus/COVID-19? Obstetrics History Last Filed Vital Signs Vital Sign Reading Time Taken Comments Blood Pressure 135/71 04/26/2022 7:55 AM CDT Pulse 78 04/26/2022 7:55 AM CDT Temperature 36.8 ??C (98.2 ??F) 12/13/2021 1:07 PM CDT Respiratory Rate 24 05/24/2021 11:02 AM COMMERCIAL LEASE 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 Oxygen Saturation 96% 04/26/2022 7:55 AM CDT Inhaled Oxygen Concentration - - Weight 73 kg (161 lb) 04/26/2022 7:55 AM CDT Height 175.3 cm (5' 9.02) 05/24/2021 11:02 AM COMMERCIAL LEASE 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 Body Mass Index 23.76 05/24/2021 11:02 AM COMMERCIAL LEASE 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 Plan of Treatment Upcoming Encounters Date Type Specialty Care Team Description 05/28/2022 [place] [address] [address] [place], [place] [address] (Wo rk) Health Maintenance Due Date Last Done Comments Medicare Wellness for age 65+ 09/14/2019 Pneumococcal series for age 65+ (4 09/14/2019 06/23/2014, 0 12/25/2012, - PPSV23 if available, else PCV20) 06/23/2009, A dditional history exists Tetanus booster 02/18/2022 02/19/2012, 05/11/2003, 05/11/2003 COVID-19 vaccine series (6 - 03/18/2022 01/21/2022, 022, Booster for Moderna series) 02/09/2021, Addition al history exists Fecal testing non-DNA 05/01/2022 05/01/2021, 04/03/2020, (FIT,FOBT,iFOBT) for age 45-75 11/19/2018 BMI (ht and wt on same day) for 05/24/2022 05/24/2021, 1109/2020, age 18+ 03/30/2021, Additional history exists Depression [...] Name Priority Date/Time Associated Diagnosis Comme nts XR ELBOW 3 VIEWS Routine 04/26/2022 8:35 AM Left arm pain Resu lts for this LEFT CDT procedure are i n the results section. XR FOREARM 2 VIEWS Routine 04/26/2022 8:33 AM Left arm pain Re sults for this LEFT CDT procedure are i n the results section. SCAN-RADIOLOGY 04/13/2022 12:00 AM Result s for this REPORT CDT procedure are i n the results section. SCAN-RADIOLOGY 03/29/2022 12:00 AM Result s for this REPORT CDT procedure are i n the results section. SCAN-RADIOLOGY 03/29/2022 12:00 AM Result s for this REPORT CDT procedure are i n the results section. SCAN-RADIOLOGY 03/29/2022 12:00 AM Result s for this REPORT CDT procedure are i n the results section. from Last 3 Months Results XR ELBOW 3 VIEWS LEFT (04/26/2022 8:35 AM CDT) Anatomical Region Laterality Modality ELBOW L Computed Radiography Specimen (Source) Anatomical Collection Method Collection Time Re ceived Time Location / / Volume Laterality 04/26/2022 9:07 AM CDT Narrative 04/26/2022 9:07 AM CDT For Patients: ??As a result of the Cures Act, medical imaging exams and procedure report s are released immediately into your [employer] medical record. ??You may view this report before your referring provider. ??If you have questions, please contact your health care provider. Indication: Pain. Technique: The examination consists of two views of the left forearm and three views of the left elbow. Comparison: None Findings: Bone mineral density is decreased. There are postoperative changes of the wrist and there is positive ulnar variance. Regarding the radius and ulna, there is no acute fracture, dislocation or destructiv e process. In the elbow, there postsurgi adelfo and significant degenerative changes with intra-articular ossific debris. There is a radial head prosthesis. No dislocation. Impression: 1. Postoperative changes involving the w rist and the elbow joint. 2. No acute fracture or dislocation iden tified regarding the left radius and ulna. 3. Postoperative changes at the elbow billy int related to resection of the radial head with radial head prosthesis parent significant osteoarthritis. Intra- articular ossification bruit. No acute fracture, dislocation or destructive process Dictated by Warner Pinzon MD @ 2 9:07:02 AM (Electronically Signed) Procedure Note Warner Pinzon MD - 04/26/2022Format ting of this note might be different from the original. For Patients: As a result of the Cures Act, medical imaging exams and procedure reports are released immediately into your electronic medical record. You may view this report before your referring provider. If you have questions, please contact [facility] health care provider. Indication: Pain. Technique: The examination consists of two views of the left forearm and three views of the left elbow. Comparison: None Findings: Bone mineral density is decreased. There are postoperative changes of the wrist and there is positive ulnar variance. Regarding the radius and ulna, there is no acute fracture, dislocation or destructive process. In the elbow, there postsurgical and significan t degenerative changes with intra- articular ossific debris. There is a radial head prosthesis. No dislocation. Impression: 1. Postoperative changes involving the w rist and the elbow joint. 2. No acute fracture or dislocation iden tified regarding the left radius and ulna. 3. Postoperative changes at the elbow billy int related to resection of the radial head with radial head prosthesis parent significant osteoarthritis. Intra- articular ossification bruit. No acute fracture, dislocation or destructive process Dictated by Warner Pinzon MD @ 2 9:07:02 AM (Electronically Signed) Ryan Cole MD GENERAL IMAGING XR FOREARM 2 VIEWS LEFT (04/26/2022 8:33 AM CDT) Anatomical Region Laterality Modality FOREARMS, FOREARM L Computed Radiography Specimen (Source) Anatomical Collection Method Collection Time Re ceived Time Location / / Volume Laterality 04/26/2022 9:06 AM CDT Narrative 04/26/2022 9:06 AM CDT For Patients: ??As a result of the Cures Act, medical imaging exams and procedure report s are released immediately into your [facility] medical record. ??You may view this report before your referring provider. ??If you have questions, please contact your health care provider. Indication: Pain. Technique: The examination consists of two views of the left forearm and three views of the left elbow. Comparison: None Findings: Bone mineral density is decreased. There are postoperative changes of the wrist and there is positive ulnar variance. Regarding the radius and ulna, there is no acute fracture, dislocation or destructiv e process. In the elbow, there postsurgi adelfo and significant degenerative changes with intra-articular ossific debris. There is a radial head prosthesis. No dislocation. Impression: 1. Postoperative changes involving the w rist and the elbow joint. 2. No acute fracture or dislocation iden tified regarding the left radius and ulna. 3. Postoperative changes at the elbow billy int related to resection of the radial head with radial head prosthesis parent significant osteoarthritis. Intra- articular ossification bruit. No acute fracture, dislocation or destructive process Dictated by Warner Pinzon MD @ 2 9:06:34 AM (Electronically Signed) Procedure Note Warner Pinzon MD - 04/26/2022Format ting of this note might be different from the original. For Patients: As a result of the ntury Cures Act, medical imaging exams and procedure reports are released immediately into your electronic medical record. You may view this report before your referring provider. If you have questions, please contact yo health care provider. Indication: Pain. Technique: The examination consists of two views of the left forearm and three views of the left elbow. Comparison: None Findings: Bone mineral density is decreased. There are postoperative changes of the wrist and there is positive ulnar variance. Regarding the radius and ulna, there is no acute fracture, dislocation or destructive process. In the elbow, there postsurgical and significan t degenerative changes with intra- articular ossific debris. There is a radial head prosthesis. No dislocation. Impression: 1. Postoperative changes involving the w rist and the elbow joint. 2. No acute fracture or dislocation iden tified regarding the left radius and ulna. 3. Postoperative changes at the elbow billy int related to resection of the radial head with radial head prosthesis parent significant osteoarthritis. Intra- articular ossification bruit. No acute fracture, dislocation or destructive process Dictated by Warner Pinzon MD @ 2 9:06:34 AM (Electronically Signed) Ryan Cole MD GENERAL IMAGING SCAN-RADIOLOGY REPORT (04/13/2022 12:00 AM CDT)Only the most recent of4 results within the time period is included. Narrative This result has an attachment that is no t available. Scanner OTHER from Last 3 Months Insurance Payer Benefit Plan / Subscriber ID Effective Dates Phone Addre ss Type Group MEDICARE PART A MEDICARE PART A [id number] 2015-Presen ATTN: CLAIMS - HB USE ONLY HB ONLY t [address] [place] [address] MEDICARE PART B MEDICARE PART B [id number] 2015-Presen ATTN: CLAIMS - HB USE ONLY HB ONLY t [address] [place] [address] BLUE CROSS BLUE CROSS [id number] 2017-Presen [address] [address] [address] [place], [place] ONLY [id number] BLUE CROSS MR BLUE CROSS [id number] 2017-Presen [address] [address] [address] [place], [place] ONLY [id number] Advance Directives Latest Code Status on File Code Status Date Activated Date Inactivated Comments Full Code 04/30/2021 5:43 AM 04/30/2021 10:06 AM Code Status Discussion: Reviewed Preferences Care Teams Academic Support Director Relationship Specialty Start Date End Date Ryan Cole MD PCP - General Family Practice 07/11/14 [address] [place] [address]
--- OUTSIDE RECORDS SUMMARY | 2022-05-17 18:14 | XMS_ITS | Clinical Summary ---
:1955 Author Organization [facility] Address [address] [place] [address] Care Team Providers Name Role Phone Elsewhere, Pcp Primary Care Provider Unavailable Source Comments Patient records contain information from all sites at [facility]. For routine questions regarding patient records, call [phone] during business hours, M-F 8:00 AM - 5:00 PM Central Time. Record requests for emergency care only can be directed to [phone] at any time.[facility] Allergies Active Allergy Reactions Severity Noted Date [...] oral Daily before breakfast, Reported on 12/05/2021 sulfamethoxazole-trimethoprim Take 1 tablet by 90 tablet 0 06/2021 Active (BACTRIM,SEPTRA) 400-80 mg per tablet mouth daily. Take after dialysis on dialysis days. Additional Information Patient not taking. Reported on 02/07/2022 torsemide (DEMADEX) Take 1 tablet 90 tablet 3 01/31/2022 Active 100 mg tablet (100 mg total) by mouth daily. ipratropium INHALE 2 SPRAYS 30 mL 11 02/05/2022 A ctive (ATROVENT) 21 mcg IN EACH NOSTRIL (0.03 %) nasal spray TWICE DAILY, UP TO FIVE TIMES DAILY NEEDED Renate-Celestine Rx 1-60-300 Take 1 tablet by 0 12/11/2021 Active mg-mg-mcg tablet mouth daily with dinner. voriconazole (VFEND) Take 200 mg by 0 Active 200 mg tablet mouth 2 (two) times a day. Trelegy Ellipta INHALE 1 PUFF BY 60 each 3 03/04/2022 Active 200-62.5-25 mcg MOUTH DAILY inhaler budesonide Add 1 respule to 360 mL 3 03/04/2022 A ctive (PULMICORT) 0.5 mg/2 8 ounces saline mL nebulizer solution and irrigate each side of nose twice daily as directed. valGANciclovir Take 1 tablet 15 tablet 0 04/18/202205/18 Active (VALCYTE) 450 mg (450 mg total) /2021 tablet by mouth every other day. Take after dialysis on dialysis days. ofloxacin (OCUFLOX) ADMINISTER 5 10 mL 3 01/11/202201/11 Active 0.3 % ophthalmic DROPS INTO THE solutionIndications: RIGHT EAR FOUR Chondritis Pinna TIMES A DAY Right vancomycin (VANCOCIN) TAKE 1 CAPSULE 34 capsule 0 05/26/2021 1 2 Active 125 mg capsule BY MOUTH FOUR TIMES A DAY FOR 34 DOSES doxycycline TAKE 1 TABLET BY 20 tablet 0 07/26/202107/26 Active monohydrate (ADOXA) MOUTH TWO TIMES 100 mg tablet A DAY FOR 10 DAYS NIFEdipine XL Take 2 tablets 180 tablet 3 04/29/202204/29 Active (PROCARDIA XL) 30 mg (60 mg total) by / 023 24 hr tablet mouth daily. tacrolimus (PROGRAF) Take 4 capsules 720 capsule 3 05/06/2022 Active 0.5 mg (2 mg total) by capsuleIndications: mouth 2 (two) Transplant Liver times a day. (HCC), Medication Therapy Group Home Not Anticoagulant sevelamer carbonate daily. 0 04/01/2022 Active (RENVELA) 800 mg tablet isavuconazonium Take 2 capsules 180 capsule 0 01/21/202204/21 (CRESEMBA) 186 mg (372 mg total) /2021 capsule by mouth daily. NIFEdipine XL Take 60 mg by 0 10/06/202104/29 D iscontinued (PROCARDIA XL) 30 mg mouth daily. (Reorder) 24 hr tablet mycophenolate Take 2 capsules 360 capsule 3 02/15/202204/22 Discontinued (CELLCEPT) 250 mg (500 mg total) /2021 capsuleIndications: by mouth 2 (two) Transplant Liver times a day. Do (HCC), Infection not break, cut, Cytomegalovirus or open (HCC), Medication capsules. Therapy Group Home Not Anticoagulant tacrolimus (PROGRAF) Take 2 capsules 360 capsule 3 04/02/202205/06 Discontinued 0.5 mg (1 mg total) by (Reo rder) capsuleIndications: mouth every 12 Transplant Liver (twelve) hours. 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 Comprehensive Orthopedic Surgery Star, Pain Rig ht Ankle And 2 Visit Warner Ayoub, Joints Right Fo ot M.D. (Primary Dx) Hospital Encounter Radiology Jeremie Rose Pain Rig ht Ankle And Joints Right Foot; 2 P, LynnD. Pain Elbow Left Clinical Transplant Yolie Dubois Txp Tacrolimus 2 Communication R, R.N. Adjustment Pro tocol - Liver Clinical Admitting/Central Pre-visit Intake 2 Communication Scheduling Hospital Encounter Laboratory Medicine Angélica Granger ransplant Liver (HCC); 2 J, P.A.-C. 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 Orders Only Dialysis Elissa Wilcox, 2 FINISHING MACHINE OPERATOR AUTOMATIC, C.N.P. Orders Only Otorhinolaryngology Dex Matta 2 L, FINISHING MACHINE OPERATOR AUTOMATIC, C.N.P., M.S.N. Clinical Orthopedic Surgery [facility] Pre-visi t Testing 2 Communication Markus owusu Orders M.D., Ph.D. 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 Orders Only Nephrology and [place], 2 Hypertension Otoniel Tubbs Jr., D.O. Clinical Orthopedic Surgery Prescheduling Pre-sche duling 2 Communication , Provider Questionnaire ( Upper Extremity Pre-Scheduling Questionnaire) Ancillary 2 Procedure Office Visit Otorhinolaryngology Dex Matta Rhinosi nusitis Chronic (Primary Dx); 2 L, FINISHING MACHINE OPERATOR AUTOMATIC, Drip Post Nasal ; C.N.P., Acute Serous Ot itis Media Recurrent Left M.S.N. Clinical Transplant Yolie Dubois Txp Tacrolimus 2 Communication R, R.N. Adjustment Pro tocol - Liver Hospital Encounter Laboratory Medicine Angélica Granger ransplant Liver (HCC); 2 J, P.A.-C. Medication Ther apy Group Home Not Anticoagulant Orders Only Dialysis Elissa Wilcox P, 2 FINISHING MACHINE OPERATOR AUTOMATIC, C.N.P. Refill Transplant Claudiataina Trung Med Refill 2 J, YanelyCDemetrius, M.S. Orders Only Transplant Trung Plasencia 2 J, PAdilia, M.S. Clinical Transplant [facility] Labs Only 2 Communication , Freeman Javed.NDemetrius, C.C.T.C. Hospital Encounter Laboratory Medicine [facility] ransplan Liver (HCC); 2 J, P.A.-C. Medication Ther apy [place] Not Anticoagulant Clinical Transplant Yolie Dubois Labs Only 2 Communication RLynn. Hospital Encounter Laboratory Medicine [facility] ransplan Liver (HCC); 2 Leena, P.A.KelseyC. Medication Ther apy [place] Not Anticoagulant Ancillary 2 Procedure Office Visit Otorhinolaryngology Jaxson Churchill Sinusiti s Recurrent (Primary Dx); 2 D, P.A.-C., Chronic Cough; M.S., M.P.H. Drip Post Nasal ; Headache Daily Orders Only Otorhinolaryngology James, Jaxon Millard M.D. Clinical Admitting/Central Pre-visit Intake 2 Communication Scheduling Clinical Transplant [facility] Txp Tacrolimus 2 Communication , Lilia Azevedo, Adjustment Pro tocol - R.N., Liver C.C.T.C. Hospital Encounter Laboratory Medicine [facility] ransplan Liver (HCC); 2 Leena, P.A.-C. Medication Ther apy [place] Not Anticoagulant Clinical Orthopedic Surgery Pollobernabe, Pre-visit Testing 2 Communication Warner Ayoub, Ashley Tomlin Orders Only Otorhinolaryngology James, Jaxon Millard M.D. Clinical Otorhinolaryngology Toro Pena Med Ref ill 2 Misa Galvan M.D. (Azelastine) Refill Transplant Anastasia Will Med Refill 2 L, R.N., C.C.T.C. Clinical Orthopedic Surgery Prescheduling 2 Communication , Provider Clinical Orthopedic Surgery Prescheduling 2 Communication , Provider Hospital Encounter Radiology Trung Plasencia Pneumonia Fungal; 2 Jennifer Stern., Chronic Obstruc tive Pulmonary Disease Without Exacerbation (HCC); M.S. Lung Interstiti al Disease (HCC) [facility] 2 Jennifer Stern. Medication Ther apy Group Home Not Anticoagulant Orders Only Transplant Trung Plasencia Pneumonia Funga l (Primary Dx); 2 Jennifer Stern., Chronic Obstruc tive Pulmonary Disease Without Exacerbation (HCC); M.S. Lung Interstiti al Disease (HCC) Orders Only Otorhinolaryngology Jazmin, 2 Leonid Walker M.D. Clinical Otorhinolaryngology Toro Pena Med Ref ill 2 Misa Galvan M.D. (budesonide) Refill Pulmonary Medicine Agnieszka Med Refil l 2 Simba GauthierB.S. Clinical Transplant [facility] Yolie Labs Only 2 Communication R, R.N. Hospital [facility]); 2 Jennifer Stern. Medication Ther apy [place] Not Anticoagulant [facility] 2 Communication R, R.N. Hospital Encounter Laboratory Medicine [facility] ransplan Liver ([facility]); 2 Jennifer Stern. Medication Ther apy Group Home Not Anticoagulant Clinical Pulmonary Medicine Odeyemi, Pulmonary Clearance 2 Communication Simba GauthierB.S. Refill Transplant [facility] Yolie Med Refill 2 R, R.N. from Last 3 Months Immunizations Name Administration [...] at Date Recorded Male 05/16/2020 4:27 PM GREEN MARKETING ANALYST Last Filed Vital Signs Vital Sign Reading [...] Encounters Date Type Specialty Care Team Description 05/22/2022 Appointment Laboratory Medicine Angélica Granger, P.A.-C. [address] [place] [phone] 05/23/2022 Clinical Admitting/Central Communication Scheduling 05/27/2022 Comprehensive Visit Orthopedic Surgery Markus Sams M.D., Ph.D. [address] [place] [phone] 05/29/2022 Office Visit Otorhinolaryngology Dex Matta APRN CDemetriusNFabrice., M.S.N. [address] [place] [phone] 05/29/2022 Office Visit Otorhinolaryngology Nadeem Maradiaga P.A.-C., M.S. [address] [place] [phone] 05/31/2022 Appointment Radiology Guilherme Matt MPAS, P.A.-C., M.S. [address] [place] [phone] 06/05/2022 Appointment Laboratory Medicine Angélica Granger P.A.-C. [address] [place] [phone] 06/19/2022 Appointment Laboratory Medicine Angélica Granger P.A.-C. [address] [place] [phone] 07/03/2022 Appointment Laboratory Medicine Angélica Granger P.A.-C. [address] [place] [phone] 07/17/2022 Appointment Laboratory Medicine Angélica Granger P.A.-C. [address] [place] [phone] 07/31/2022 Appointment Laboratory Medicine Angélica Granger P.A.-C. [address] [place] [phone] 08/14/2022 Appointment Laboratory Medicine Angélica Granger P.A.-C. [address] [place] [phone] 08/28/2022 Appointment Laboratory Medicine Angélica Granger P.A.-C. [address] [place] [phone] Health Maintenance Due Date Last Done Comments [...] 02/07/2022 Pressure Check / Re-check Creatinine Level 05/08/2023 05/08/2022, 04/24/2022, 04/10/2022, Additional history exists Fasting Glucose for 05/08/2023 05/08/2022, 04/24/2022, Diabetes Screening 04/10/2022, Additional history exists Potassium Level 05/08/2023 05/08/2022, 04/24/2022, 04/10/2022, Additional history exists Sodium Level 05/08/2023 05/08/2022, 04/24/2022, 04/10/2022, Additional history exists Colonoscopy 07/10/2026 07/10/2021, 07/10/2021, 06/06/2021, Additional history exists Colorectal Cancer 07/10/2026 Surveillance Lipid (Cholesterol) 12/03/2026 12/03/2021, 04/26/2021, Screening 11/27/2020, Additional history exists Hepatitis A Vaccines Completed 12/25/2012, 12/07/1998, 06/08/1998 Zoster Vaccines Completed 01/06/2018, 10/03/2017 Fall Risk Screen (Annual) Completed 12/10/2021 Influenza Vaccine Completed 04/08/2022, 03/05/2021, 03/05/2021, Additional history exists HPV Vaccines Aged Out No longer ctb katerin based on patient 's age to complete this topic Medical Devices Implanted Type Area Cracking Still Operator Device Shelf Model / Identifier Expiration Serial / Date Lot Stent Intro Fusion Lock Springs 10 Fr - Banerjee [id number] Biliary Med[employer]esis [employer] Medical Implanted: Qty: 1 on 09/24/2011 Stent Inc. Description: Device Cracking Still Operator - EasyLink. Device Status Text - [id number]. Stent Intro Fusion Lock Springs 10 Fr - Banerjee [id number] Biliary Stent C ook [employer] Inc. Implanted: Qty: 1 on 12/12/2011 Description: Device Cracking Still Operator - EasyLink. Device Status Text - [id number]. Stent Biliary 10 X 7 Cotton-Cornell - Banerjee [id number] Biliary Stent [employer]. Implanted: Qty: 1 on 05/26/2013 Description: Device Cracking Still Operator - EasyLink. Device Status Text - [id number]. Conversions - Default Historical Implant Device Elbow Implant Implanted: 11/21/2016 (Quantity not on file) Description: Device Status Text - Elbow Imp. left elbow. Stent Pancreatic Johlin Wedge 8.5-22 - Banerjee [id number] Pancreatic St ent [employer]. Implanted: Qty: 1 on 11/06/2011 Description: Device Cracking Still Operator - EasyLink. Device Status Text - [id number]. Stent Pancreatic Johlin Wedge 10-22 - Banerjee [id number] Pancreatic Jorge L nt [employer]. Implanted: Qty: 1 on 12/12/2011 Description: Device Cracking Still Operator - Cook Medical. Device Status Text - [id number]. Stent Pancreatic Eddielin Wedge 22 - Banerjee [id number] Pancreatic Jorge L nt [employer]. Implanted: Qty: 2 on 04/08/2013 Description: Device Cracking Still Operator - Cook [employer]. Device Status Text - [id number]. Stent Pancreatic Eddielin Wedge 22 - Banerjee [id number] Pancreatic Jorge L nt [employer]. Implanted: Qty: 2 on 04/30/2013 Description: Device Cracking Still Operator - Cook [employer]. Device Status Text - [id number]. Stent Ureteral 7 Fr 20 Cm [id number] - Banerjee [id number] Ureteral Stent [employer] Implanted: Qty: 1 on 11/06/2011 Description: Device Cracking Still Operator - [employer]. Device Status Text - [id number]. Stent Herculink Elite [id number] - Banerjee [id number] Vascular Stent Other/Legacy - See Implant Cazares Implanted: Qty: 1 on 03/24/2017 Description Description: Device Cracking Still Operator - Abbot t Vascular. Body Location - Other. n/a. Device Status Text - [id number]. Procedures Procedure Name Priority Date/Time Associated Comments Diagnosis DX ELBOW LEFT 2 VIEWS RAD - Routine 05/10/2022 Pain Elbow Left Re sults for (most 7:41 AM GREEN MARKETING ANALYST this inpatients and procedure are all in the outpatients) results section. DX FOOT ANKLE RIGHT 3+ RAD - Routine 05/10/2022 Pain Right Ankle Results for VIEWS (most 7:41 AM GREEN MARKETING ANALYST And Joints Right this inpatients and Foot procedure are all in the outpatients) results section. HLA CLASS I/II COMBINED Routine 05/08/2022 Resu lts for CPRA, SERUM 8:16 AM GREEN MARKETING ANALYST this procedure are in the results section. HLA CLASS I SAB ANTIBODY Routine 05/08/2022 Res ults for SCREEN 8:16 AM GREEN MARKETING ANALYST this procedure are in the results section. HLA CLASS II SAB Routine 05/08/2022 Chronic Failure Results for ANTIBODY SCREEN 8:16 AM GREEN MARKETING ANALYST Renal End Stage this Renal Disease procedure are Dialysis Dependent in the (HCC) results Immunodeficiency section. (HCC) TACROLIMUS LEVEL, B Routine 05/08/2022 Transplant Liver Resu lts for 8:16 AM GREEN MARKETING ANALYST (HCC) this Medication Therapy procedure are [place] Not in the Anticoagulant results section. GLUCOSE, FASTING, S/P Routine 05/08/2022 Transplant Liver Re sults for 8:16 AM GREEN MARKETING ANALYST (HCC) this Medication Therapy procedure are Group Home Not in the Anticoagulant results section. COMPREHENSIVE METABOLIC Routine 05/08/2022 Transplant Liver Results for PANEL, S/P 8:16 AM GREEN MARKETING ANALYST (HCC) this Medication Therapy procedure are Group Home Not in the Anticoagulant results section. CBC WITHOUT Routine 05/08/2022 Transplant Liver Results for DIFFERENTIAL, B 8:16 AM GREEN MARKETING ANALYST (HCC) this Medication Therapy procedure are [place] Not in the Anticoagulant results section. CMV DNA DETECT/QUANT, P Routine 05/08/2022 Transplant Liver Results for 8:16 AM GREEN MARKETING ANALYST (HCC) this Medication Therapy procedure are [place] Not in the Anticoagulant results section. OUTSIDE DX SKELETAL Routine 04/26/2022 Results for 8:25 AM CDT this procedure are in the results section. OUTSIDE DX SKELETAL Routine 04/26/2022 Results for 8:20 AM CDT this procedure are in the results section. OTORHINOLARYNGOLOGY Routine 04/25/2022 Results for IMAGE EXAM 3:54 PM CDT this procedure are in the results section. BACTERIAL CULTURE, Routine 04/25/2022 Rhinosinusitis Results for AEROBIC + SUSC 3:44 PM CDT Chronic this procedure are in the results section. TACROLIMUS LEVEL, B Routine 04/24/2022 Transplant Liver Resu lts for 8:03 AM CDT (HCC) this Medication Therapy procedure are [place] Not in the Anticoagulant results section. GLUCOSE, FASTING, S/P Routine 04/24/2022 Transplant Liver Re sults for 8:03 AM CDT (HCC) this Medication Therapy procedure are Group Home Not in the Anticoagulant results section. COMPREHENSIVE METABOLIC Routine 04/24/2022 Transplant Liver Results for PANEL, S/P 8:03 AM CDT (HCC) this Medication Therapy procedure are [place] Not in the Anticoagulant results section. CBC WITHOUT Routine 04/24/2022 Transplant Liver Results for DIFFERENTIAL, B 8:03 AM CDT (HCC) this Medication Therapy procedure are [place] Not in the Anticoagulant results section. CMV DNA DETECT/QUANT, P Routine 04/24/2022 Transplant Liver Results for 8:03 AM CDT (HCC) this Medication Therapy procedure are Group Home Not in the Anticoagulant results section. CMV DNA DETECT/QUANT, P Routine 04/10/2022 Transplant Liver Results for 8:21 AM CDT (HCC) this Medication Therapy procedure are [place] Not in the Anticoagulant results section. TACROLIMUS LEVEL, B Routine 04/10/2022 Transplant Liver Resu lts for 8:20 AM CDT (HCC) this Medication Therapy procedure are [place] Not in the Anticoagulant results section. GLUCOSE, FASTING, S/P Routine 04/10/2022 Transplant Liver Re sults for 8:20 AM CDT (HCC) this Medication Therapy procedure are Group Home Not in the Anticoagulant results section. COMPREHENSIVE METABOLIC Routine 04/10/2022 Transplant Liver Results for PANEL, S/P 8:20 AM CDT ([facility]) this Medication Therapy procedure are [place] Not in the Anticoagulant results section. CBC WITHOUT Routine 04/10/2022 Transplant Liver Results for DIFFERENTIAL, B 8:20 AM CDT ([facility]) this Medication Therapy procedure are Group Home Not in the Anticoagulant results section. TACROLIMUS LEVEL, B Routine 03/27/2022 Transplant Liver Resu lts for 8:12 AM CDT ([facility]) this Medication Therapy procedure are [place] Not in the Anticoagulant results section. GLUCOSE, FASTING, S/P Routine 03/27/2022 Transplant Liver Re sults for 8:12 AM CDT ([facility]) this Medication Therapy procedure are Group Home Not in the Anticoagulant results section. COMPREHENSIVE METABOLIC Routine 03/27/2022 Transplant Liver Results for PANEL, S/P 8:12 AM CDT ([facility]) this Medication Therapy procedure are Group Home Not in the Anticoagulant results section. CBC WITHOUT Routine 03/27/2022 Transplant Liver Results for DIFFERENTIAL, B 8:12 AM CDT ([facility]) this Medication Therapy procedure are Group Home Not in the Anticoagulant results section. CMV DNA DETECT/QUANT, P Routine 03/27/2022 Transplant Liver Results for 8:12 AM CDT (HCC) this Medication Therapy procedure are [place] Not in the Anticoagulant results section. OTORHINOLARYNGOLOGY [...] CDT (HCC) this Medication Therapy procedure are [place] Not in the Anticoagulant results section. COMPREHENSIVE METABOLIC Routine 03/20/2022 Transplant Liver Results for PANEL, S/P 8:13 AM CDT (HCC) this Medication Therapy procedure are [place] Not in the Anticoagulant results section. CBC WITHOUT Routine 03/20/2022 Transplant Liver Results for DIFFERENTIAL, B 8:13 AM CDT (HCC) this Medication Therapy procedure are Group Home Not in the Anticoagulant results section. TACROLIMUS LEVEL, B Routine 03/20/2022 Transplant Liver Resu lts for 8:12 AM CDT (HCC) this Medication Therapy procedure are [place] Not in the Anticoagulant results section. CMV DNA DETECT/QUANT, P Routine 03/20/2022 Transplant Liver Results for 8:12 AM CDT (HCC) this Medication Therapy procedure are [place] Not in the Anticoagulant results section. CT [...] CDT (HCC) this Medication Therapy procedure are Group Home Not in the Anticoagulant results section. GLUCOSE, FASTING, S/P Routine 03/13/2022 Transplant Liver Re sults for 8:00 AM CDT (HCC) this Medication Therapy procedure are Group Home Not in the Anticoagulant results section. COMPREHENSIVE METABOLIC Routine 03/13/2022 Transplant Liver Results for PANEL, S/P 8:00 AM CDT (HCC) this Medication Therapy procedure are Group Home Not in the Anticoagulant results section. CBC WITHOUT Routine 03/13/2022 Transplant Liver Results for DIFFERENTIAL, B 8:00 AM CDT (HCC) this Medication Therapy procedure are [place] Not in the Anticoagulant results section. CMV DNA DETECT/QUANT, P Routine 03/13/2022 Transplant Liver Results for 8:00 AM CDT (HCC) this Medication Therapy procedure are Group Home Not in the Anticoagulant results section. GLUCOSE, FASTING, S/P Routine 02/27/2022 Transplant Liver Re sults for 8:08 AM CDT (HCC) this Medication Therapy procedure are Group Home Not in the Anticoagulant results section. TACROLIMUS LEVEL, B Routine 02/27/2022 Transplant Liver Resu lts for 8:07 AM CDT (HCC) this Medication Therapy procedure are [place] Not in the Anticoagulant results section. COMPREHENSIVE METABOLIC Routine 02/27/2022 Transplant Liver Results for PANEL, S/P 8:07 AM CDT (HCC) this Medication Therapy procedure are Group Home Not in the Anticoagulant results section. CBC WITHOUT Routine 02/27/2022 Transplant Liver Results for DIFFERENTIAL, B 8:07 AM CDT (HCC) this Medication Therapy procedure are Group Home Not in the Anticoagulant results section. CMV DNA DETECT/QUANT, P Routine 02/27/2022 Transplant Liver Results for 8:07 AM CDT (HCC) this Medication Therapy procedure are Group Home Not in the Anticoagulant results section. TACROLIMUS LEVEL, B Routine 02/20/2022 Transplant Liver Resu lts for 8:13 AM CDT (HCC) this Medication Therapy procedure are Group Home Not in the Anticoagulant results section. GLUCOSE, FASTING, S/P Routine 02/20/2022 Transplant Liver Re sults for 8:13 AM CDT (HCC) this Medication Therapy procedure are [place] Not in the Anticoagulant results section. COMPREHENSIVE METABOLIC Routine 02/20/2022 Transplant Liver Results for PANEL, S/P 8:13 AM CDT (HCC) this Medication Therapy procedure are [place] Not in the Anticoagulant results section. CBC WITHOUT Routine 02/20/2022 Transplant Liver Results for DIFFERENTIAL, B 8:13 AM CDT (HCC) this Medication Therapy procedure are Group Home Not in the Anticoagulant results section. CMV DNA DETECT/QUANT, P Routine 02/20/2022 Transplant Liver Results for 8:13 AM CDT (HCC) this Medication Therapy procedure are Group Home Not in the Anticoagulant results section. from Last 3 Months Results DX Foot Ankle Right 3+ Views (05/10/2022 7:41 AM GREEN MARKETING ANALYST) Anatomical Region Laterality Modality Lower Extremity, Foot, Ankle, Musculoskeletal RST LOS, Right Digital Radiography Musculoskeletal ARZ LOS, Muskuloskeletal FLA LOS Specimen (Source) Anatomical Collection Method Collection Time Re ceived Time Location / / Volume Laterality 05/10/2022 8:03 AM GREEN MARKETING ANALYST Impressions 05/10/2022 8:06 AM GREEN MARKETING ANALYST Demineralization. Marked pes planus and hindfoot valgus. Scattered degenerative changes about the foot and ankle which are not s ubstantially changed from the most recent prior exam, though, have progressed since 2019. Plan tar calcaneal spur. Healed left ankle fracture deformity. Ad vanced degenerative changes of the visualized left ankle and foot. Vascular calcifications. Narrative 05/10/2022 8:06 AM GREEN MARKETING ANALYST EXAM: ??DX FOOT ANKLE RIGHT 3+ VIEWS COMPARISON: Right ankle radiographs 11/22, bilateral foot and ankle radiographs 12/17/2021, and right foot and ankle radiographs 022. Procedure Note Mitch Ellis D.O. - 05/10/2022Forma tting of this note might be different from the original. EXAM: DX FOOT ANKLE RIGHT 3+ VIEWS COMPARISON: Right ankle radiographs 11/22, bilateral foot and ankle radiographs 12/17/2021, and right foot and ankle radiographs 022. IMPRESSION: Demineralization. Marked pes planus and hindfoot valgus. Scattered degenerative changes about the foot and ankle which are not s ubstantially changed from the most recent prior exam, though, have progressed since 2019. Plan tar calcaneal spur. Healed left ankle fracture deformity. Ad vanced degenerative changes of the visualized left ankle and foot. Vascular calcifications. Jeremie Rose M.D. IMG DIAGNOSTIC IMAGING PROCE FAWAD DX Elbow Left 2 Views (05/10/2022 7:41 AM GREEN MARKETING ANALYST) Anatomical Region Laterality Modality Upper Extremity, Elbow, Musculoskeletal RST LOS, Left Digital Radiography Musculoskeletal ARZ LOS, Muskuloskeletal FLA LOS Specimen (Source) Anatomical Collection Method Collection Time Re ceived Time Location / / Volume Laterality 05/10/2022 8:03 AM GREEN MARKETING ANALYST Impressions 05/10/2022 8:05 AM GREEN MARKETING ANALYST Left radial head endoprosthesis. This is backed out approximately 3mm, with associated lucency along the tip of the prosthesis. 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 Multiple small osteochondral bodi es about the joint. Elbow joint effusion. Small amount of heterotopic ossification along the media l humeral epicondyle. Osteopenia. Arterial calcifications. Narrative 05/10/2022 8:05 AM GREEN MARKETING ANALYST EXAM: ??DX ELBOW LEFT 2 VIEWS Procedure Note Virginia Bullock M.D. - 022 EXAM: DX ELBOW LEFT 2 VIEWS IMPRESSION: Left radial head endoprosthesis. This is backed out approximately 3mm, with associated lucency along the tip of the prosthesis. 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 Multiple small osteochondral bodi es about the joint. Elbow joint effusion. Small amount of heterotopic ossification along the media l humeral epicondyle. Osteopenia. Arterial calcifications. Dee Machuca P.A.-C., M.S. IMG DIAGNOSTIC IMAGING PROCEDURES HLA Class I/II Combined cPRA, S (05/08/2022 8:16 AM GREEN MARKETING ANALYST) [facility] [employer] Method Time Signature Class I/II 0 Not Applicable 05/10/2022 DBB8 Combined cPRA 4:04 PM GREEN MARKETING ANALYST Comment: ----ADDITIONAL INFORMATION---- Calculated PRA (cPRA) is the percentage of donors expected to have HLA antigens listed as unacceptable for a candidate on the waiting list. Unacceptable antigens include serologic equivalents that have a normalized Mean Fluorescence Intensity (MFI) >= 2000 and antigens that demonstr ate Prozone Phenomenon. The cPRA is calculated based on the HLA frequencies published by UNOS/OPTN listed here: http://optn.tr ansplant.hrsa.gov CLIA: [id number] ??CLIA Detail Technician: KRISTAL MIMS MD,PhD Combined cPRA Specificities NONE 05/10/2022 4 :04 PM GREEN MARKETING ANALYST DBB8 Specimen Anatomical Collection Method Collection Time Receive d Time (Source) Location / / Volume Laterality Blood 05/08/2022 8:16 AM 8:01 GREEN MARKETING ANALYST AM GREEN MARKETING ANALYST Angélica Granger P.A.-C. LAB HLA ORDERABLES Performing Organization Address City/State/ZIP Code Phon e Number [facility] - [address] [place], [place] [address] [facility] [address]BB[address] [place] [address] [facility] [address] (ABNORMAL) CMV DNA Detect / Quant, Plasma (05/08/2022 8:16 AM GREEN MARKETING ANALYST)Only the most recent of8 resultswithin the time period is included. [facility] [employer] Method Time Signature CMV DNA <35 (A) Undetected 05/09/2022 SDSC Detect/Quant, IU/mL 1:01 PM GREEN MARKETING ANALYST P Comment: Result in log IU/mL is <1.54. CMV DNA is detected, but level present i s <35 IU/mL (<1.54 log IU/mL). This assay cannot accurately quantify CMV DNA below this level. ----ADDITIONAL INFORMATION---- The quantification range of this assay i s 35 to 10,000,000 IU/mL (1.54 log to 7.00 log IU/mL). Testing was performed u sing the tika CMV test (From [employer] with the [employer] System. Specimen Anatomical Collection Method Collection Time Receive d Time (Source) Location / / Volume Laterality Blood (Blood, 05/08/2022 8:16 AM 05/08/20 7:34 Venous) GREEN MARKETING ANALYST PM GREEN MARKETING ANALYST Angélica Granger P.A.-C. LAB MICROBIOLOGY - BLOOD ORD ERABLES Performing Organization Address [facility] Phon e Number [facility] [address] [place] [address] [facility] [place], [place] [id number] [place] [address] Dr. MURILLO HLA Class II SAB Antibody Screen (05/08/2022 8:16 AM GREEN MARKETING ANALYST) [facility] Method Time Signature Class II SAB Negative Not Applicable 05/10/2022 DBB8 Overall Result 4:04 PM GREEN MARKETING ANALYST SAB DRB1 NONE 05/10/2022 DBB8 Specificity 4:04 PM GREEN MARKETING ANALYST SAB [id number] NONE 05/10/2022 DBB8 Specificity 4:04 PM GREEN MARKETING ANALYST SAB DQB1 NONE 05/10/2022 DBB8 Specificity 4:04 PM GREEN MARKETING ANALYST SAB DPB1 NONE 05/10/2022 DBB8 Specificity 4:04 PM GREEN MARKETING ANALYST Comment: ----ADDITIONAL INFORMATION---- Method: Luminex Flow Cytometry CLIA: [id number] ??CLIA Detail Technician: KRISTAL MIMS MD,PhD Specimen Anatomical Collection Method Collection Time Receive d Time (Source) Location / / Volume Laterality Blood (Blood, 05/08/2022 8:16 AM 05/09/20 22 8:01 Venous) GREEN MARKETING ANALYST AM GREEN MARKETING ANALYST Louie Pelletier Jr.ODemetrius LAB HLA ORDERABLES Performing Organization Address City/State/ZIP Code Phon e Number [facility] - [address] [place], [place] [address] [facility] [place] [address] [place] [address] [facility] HLA Class I SAB Antibody Screen (05/08/2022 8:16 AM GREEN MARKETING ANALYST) Patholo gist Method Time Signature Class I SAB Negative Not Applicable 05/10/2022 DBB8 Overall Result 4:03 PM GREEN MARKETING ANALYST SAB A NONE 05/10/2022 DBB8 Specificity 4:03 PM GREEN MARKETING ANALYST SAB B NONE 05/10/2022 DBB8 Specificity 4:03 PM GREEN MARKETING ANALYST SAB C NONE 05/10/2022 DBB8 Specificity 4:03 PM GREEN MARKETING ANALYST Comment: ----ADDITIONAL INFORMATION---- Method: Luminex Flow Cytometry CLIA: [id number] ??CLIA Detail Technician: KRISTAL MIMS MD,PhD Specimen Anatomical Collection Method Collection Time Receive d Time (Source) Location / / Volume Laterality Blood 05/08/2022 8:16 AM 8:01 GREEN MARKETING ANALYST AM GREEN MARKETING ANALYST Angélica Granger P.A.-C. LAB HLA ORDERABLES Performing Organization Address City/State/[facility] Phon e Number [facility] - [address] [place] [phone] [facility] [place] [address] [place] [address] (ABNORMAL) Tacrolimus, B (05/08/2022 8:16 AM GREEN MARKETING ANALYST)Only the most recent of8 resultswithin the time period is included. P athologist Signature Tacrolimus, B 2.1 (L) 5.0-15.0 05/09/2022 [facility] (Trough) 10:56 AM GREEN MARKETING ANALYST ng/mL Comment: ----ADDITIONAL INFORMATION---- Target steady-state trough [...] Location / / Volume Laterality Blood (Blood, 05/08/2022 8:16 AM 05/09/20 7:42 Venous) GREEN MARKETING ANALYST AM GREEN MARKETING ANALYST Angélica Granger P.A.-C. LAB BLOOD NON ADD-ON Performing Organization Address City/[facility] Phon e Number [facility] [address] [place] [address] M[place]O (ABNORMAL) CBC without Differential (05/08/2022 8:16 AM GREEN MARKETING ANALYST)Only the most recent of8 resultswithin the time period is included. [facility] gist Method Time Signature Hemoglobin 10.1 (L) 13.2 - 05/08/2022 [facility] 16.6 g/dL 8:38 AM GREEN MARKETING ANALYST Hematocrit 31.4 (L) 38.3 - 05/08/2022 [facility] 48.6 % 8:38 AM GREEN MARKETING ANALYST Erythrocytes 3.13 (L) 4.35 - 05/08/2022 [facility] 5.65 8:38 AM GREEN MARKETING ANALYST x10(12)/L MCV 100.3 (H) 78.2 - 05/08/2022 [facility] 97.9 fL 8:38 AM GREEN MARKETING ANALYST RBC Distrib Width 13.0 11.8 - 05/08/2022 [facility] 14.5 % 8:38 AM GREEN MARKETING ANALYST Platelet Count 269 135 - 317 05/08/2022 [facility] x10(9)/L 8:38 AM GREEN MARKETING ANALYST Leukocytes 5.3 3.4 - 9.6 05/08/2022 [facility] x10(9)/L 8:38 AM GREEN MARKETING ANALYST Specimen Anatomical Collection Method Collection Time Receive d Time (Source) Location / / Volume Laterality Blood (Blood, 05/08/2022 8:16 AM 05/08/20 22 8:17 Venous) GREEN MARKETING ANALYST AM GREEN MARKETING ANALYST Angélica Granger P.A.-C. LAB BLOOD ADD-ON Performing Organization Address City/[facility] Phon e Number [place] [address] [place] [address] [place] [address] System in [address] (ABNORMAL) Glucose, Fasting (05/08/2022 8:16 AM GREEN MARKETING ANALYST)Only the most recent of8 resultswithin the time period is included. P athologist Signature Glucose, P 109 (H) 70 - 100 05/08/2022 [facility] mg/dL 8:36 AM GREEN MARKETING ANALYST Last Intake 12 hr 05/08/2022 CN[facility] 8:17 AM GREEN MARKETING ANALYST Specimen Anatomical Collection Method Collection Time Receive d Time (Source) Location / / Volume Laterality Blood (Blood, 05/08/2022 8:16 AM 05/08/20 8:17 Venous) GREEN MARKETING ANALYST AM GREEN MARKETING ANALYST Angélica Granger P.A.-C. LAB BLOOD NON ADD-ON Performing Organization Address City/State/ZIP Code Phon e Number [facility]- [address] [place] [address] [place] [address] System [address] (ABNORMAL) Comprehensive Metabolic Panel (05/08/2022 8:16 AM GREEN MARKETING ANALYST)Only the most recent of8 resultswithin the time period is included. Analysis Performed At Patho logist Time Signature Potassium, P 4.0 3.6 - 5.2 05/08/2022 CN[facility] mmol/L 8:40 AM GREEN MARKETING ANALYST Sodium, P 133 (L) 135 - 145 05/08/2022 [facility] mmol/L 8:40 AM GREEN MARKETING ANALYST Chloride, P 97 (L) 98 - 107 05/08/2022 [facility] mmol/L 8:40 AM GREEN MARKETING ANALYST Bicarbonate, P 23 22 - 29 05/08/2022 [facility] mmol/L 8:40 AM GREEN MARKETING ANALYST Anion Gap, P 13 7 - 15 05/08/2022 [facility] 8:40 AM GREEN MARKETING ANALYST BUN (Blood Urea 37 (H) 8 - 24 05/08/2022 [facility] Nitrogen), P mg/dL 8:40 AM GREEN MARKETING ANALYST Creatinine 2.98 (H) 0.74 - 05/08/2022 [facility] 1.35 mg/dL 8:40 AM GREEN MARKETING ANALYST Estimated GFR 22 (L) >=60 05/08/2022 [facility] (eGFR) mL/min/BSA 8:40 AM GREEN MARKETING ANALYST Comment: Estimated GFR calculated using the 2020 CKD_EPI creatinine equation. Calcium, Total, P 9.1 8.8 - 10.2 mg/dL 05/08/2022 8:40 AM GREEN MARKETING ANALYST CNFL Glucose, P CANCELED mg/dL 05/08/2022 8:17 AM GREEN MARKETING ANALYST CNFL Comment: Duplicate test request. Result canceled by the ancillary. Protein, Total, P 6.6 6.3 - 7.9 g/dL 05/08/2022 8:40 A M GREEN MARKETING ANALYST CNFL Albumin, P 4.0 3.5 - 5.0 g/dL 05/08/2022 8:40 AM GREEN MARKETING ANALYST C NFL Aspartate Aminotransferase (AST), 17 8 - 48 U/L 05/08 8:40 AM GREEN MARKETING ANALYST CNFL P Alkaline Phosphatase, P 114 40 - 129 U/L 05/08/2022 8: 40 AM GREEN MARKETING ANALYST CN[facility] Alanine Aminotransferase (ALT), P 15 7 - 55 U/L 05/08 8:40 AM GREEN MARKETING ANALYST CN[facility] Bilirubin, Total, P 0.4 <=1.2 mg/dL 05/08/2022 8:40 AM GREEN MARKETING ANALYST CNFL Specimen Anatomical Collection Method Collection Time Receive d Time (Source) Location / / Volume Laterality Blood (Blood, 05/08/2022 8:16 AM 05/08/20 8:17 Venous) GREEN MARKETING ANALYST AM GREEN MARKETING ANALYST Angélica Granger P.A.-C. LAB BLOOD ADD-ON Performing Organization Address City/State/ZIP Code Phon e Number [facility]- [address] [place] [address] [place] [address] System in [place] [address] [address] XR ELBOW 3 VIEWS LEFT-Outside Skeletal Xray (04/26/2022 8:25 AM CDT)Only the most recent of2 resultswithin the time period is included. Specimen (Source) Anatomical Collection Method Collection Time Re ceived Time Location / / Volume Laterality 04/26/2022 8:16 AM CDT Narrative IIMS - 04/26/2022 10:03 AM CDT This order has been created and auto-finalized to support the import of outside images. If available, original i nterpretation can be found on the Media Tab in Chart Review, in Document V iewer, or as an image in QREADS. If a re-interpretation or overread is re quired please follow defined workflow. ?? Provider Not In System IMG DIAGNOSTIC IMAGING PROCE DURES Performing Organization Address City/State/ZIP Code Phon e Number II II NA NOSE-Otorhinolaryngology Image Exam (04/25/2022 3:54 PM CDT)Only the most recent of2 resultswithin the time period is included. Specimen (Source) Anatomical Collection Method Collection Time Re ceived Time Location / / Volume Laterality 04/25/2022 4:00 PM CDT Narrative IIMS - 04/25/2022 3:54 PM CDT This order has been created and auto-finalized to support the import of images acquired without order. The clini adelfo documentation to support these images can be found on the encounter ana t produced images. Provider Not In System IMG NON RAD IMAGING PROCEDUR ES Performing Organization Address City/State/ZIP Code Phon e Number NAGI II NA (ABNORMAL) Bacterial Culture, Aerobic + Susc (04/25/2022 3:44 PM CDT)Only the most recent of2 resultswithin the time period is included. [facility] gist Method Time Signature Bacterial SERRATIA MARCESCENS 04/27/2022 DTL Culture, 3+ 12:55 PM CDT Aerobic + (A) Susc Comment: Serratia marcescens, S. nematodiphila an d [...] Location / / Volume Laterality Swab (Paranasal 04/25/2022 3:44 PM 2021 5:45 Sinus, Sphenoid CDT PM CDT Left) Comment: Specimen Source Site: Swab Organism Antibiotic [...] <=8 mcg/mL: Susceptible DAVID (MCG/ML) Serratia marcescens Tobramycin SUSCEPTIBILITY, <=1 mcg/mL: Susceptible DAVID (MCG/ML) Serratia marcescens Aztreonam SUSCEPTIBILITY, <=4 mcg/mL: Susceptible DAVID (MCG/ML) Serratia marcescens Trimethoprim + SUSCEPTIBILITY, <=0.5/9.5 mc g/mL: Sulfamethoxazole DAVID (MCG/ML) Susceptible Dex Matta APRN C.N.P., M.S.N. LAB MICROBIOLOGY - GENERAL ORDERABLES Performing Organization Address City/State/ZIP Code Phon e Number [facility] - [address] [place] [address] [facility] [place] [address] [facility] [address] Chest without [...] Trung Plasencia P.A.-C., M.S. 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
--- OUTSIDE RECORDS SUMMARY | 2022-05-17 18:15 | XMS_ITS ---
:1955 Author Organization [facility] Address [address] [place] [address] Care Team Providers Name Role Phone Elsewhere, Pcp Primary Care Provider Unavailable Procedures Procedure Name Priority Date/Time Associated Comments Diagnosis DX ELBOW LEFT 2 VIEWS RAD - Routine 05/10/2022 Pain Elbow Left Re sults for (most 7:41 AM PERSONNEL PLACEMENT SPECIALIST this inpatients and procedure are all in the outpatients) results section. DX FOOT ANKLE RIGHT 3+ RAD - Routine 05/10/2022 Pain Right Ankle Results for VIEWS (most 7:41 AM PERSONNEL PLACEMENT SPECIALIST And Joints Right this inpatients and Foot procedure are all in the outpatients) results section. HLA CLASS I/II COMBINED Routine 05/08/2022 Resu lts for CPRA, SERUM 8:16 AM PERSONNEL PLACEMENT SPECIALIST this procedure are in the results section. HLA CLASS I SAB ANTIBODY Routine 05/08/2022 Res ults for SCREEN 8:16 AM PERSONNEL PLACEMENT SPECIALIST this procedure are in the results section. 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 ([facility]) TACROLIMUS LEVEL, B Routine 05/08/2022 Transplant Liver Resu lts for 8:16 AM PERSONNEL PLACEMENT SPECIALIST (HCC) this Medication Therapy procedure are Surgical Physician Assistant Not in the Anticoagulant results section. GLUCOSE, FASTING, S/P Routine 05/08/2022 Transplant Liver Re sults for 8:16 AM PERSONNEL PLACEMENT SPECIALIST (HCC) this Medication Therapy procedure are Surgical Physician Assistant Not in the Anticoagulant results section. COMPREHENSIVE METABOLIC Routine 05/08/2022 Transplant Liver Results for PANEL, S/P 8:16 AM PERSONNEL PLACEMENT SPECIALIST ([facility]) this Medication Therapy procedure are Surgical Physician Assistant Not in the Anticoagulant results section. CBC WITHOUT Routine 05/08/2022 Transplant Liver Results for DIFFERENTIAL, B 8:16 AM PERSONNEL PLACEMENT SPECIALIST (HCC) this Medication Therapy procedure are Surgical Physician Assistant Not in the Anticoagulant results section. CMV DNA DETECT/QUANT, P Routine 05/08/2022 Transplant Liver Results for 8:16 AM PERSONNEL PLACEMENT SPECIALIST (HCC) this Medication Therapy procedure are [facility] Not in the Anticoagulant results section. OUTSIDE [...] CDT (HCC) this Medication Therapy procedure are Senior [facility] Not in the Anticoagulant results section. GLUCOSE, FASTING, S/P Routine 04/24/2022 Transplant Liver Re sults for 8:03 AM CDT (HCC) this Medication Therapy procedure are [facility] Not in the Anticoagulant results section. COMPREHENSIVE METABOLIC Routine 04/24/2022 Transplant Liver Results for PANEL, S/P 8:03 AM CDT (HCC) this Medication Therapy procedure are Surgical Physician Assistant Not in the Anticoagulant results section. CBC WITHOUT Routine 04/24/2022 Transplant Liver Results for DIFFERENTIAL, B 8:03 AM CDT (HCC) this Medication Therapy procedure are [facility] Not in the Anticoagulant results section. CMV DNA DETECT/QUANT, P Routine 04/24/2022 Transplant Liver Results for 8:03 AM CDT (HCC) this Medication Therapy procedure are [facility] Not in the Anticoagulant results section. CMV DNA DETECT/QUANT, P Routine 04/10/2022 Transplant Liver Results for 8:21 AM CDT (HCC) this Medication Therapy procedure are Surgical Physician Assistant Not in the Anticoagulant results section. TACROLIMUS LEVEL, B Routine 04/10/2022 Transplant Liver Resu lts for 8:20 AM CDT (HCC) this Medication Therapy procedure are [facility] Not in the Anticoagulant results section. GLUCOSE, FASTING, S/P Routine 04/10/2022 Transplant Liver Re sults for 8:20 AM CDT (HCC) this Medication Therapy procedure are [facility] Not in the Anticoagulant results section. COMPREHENSIVE METABOLIC Routine 04/10/2022 Transplant Liver Results for PANEL, S/P 8:20 AM CDT (HCC) this Medication Therapy procedure are [facility] Not in the Anticoagulant results section. CBC WITHOUT Routine 04/10/2022 Transplant Liver Results for DIFFERENTIAL, B 8:20 AM CDT (HCC) this Medication Therapy procedure are Surgical Physician Assistant Not in the Anticoagulant results section. TACROLIMUS LEVEL, B Routine 03/27/2022 Transplant Liver Resu lts for 8:12 AM CDT (HCC) this Medication Therapy procedure are Surgical Physician Assistant Not in the Anticoagulant results section. GLUCOSE, FASTING, S/P Routine 03/27/2022 Transplant Liver Re sults for 8:12 AM CDT (HCC) this Medication Therapy procedure are [facility] Not in the Anticoagulant results section. COMPREHENSIVE METABOLIC Routine 03/27/2022 Transplant Liver Results for PANEL, S/P 8:12 AM CDT (HCC) this Medication Therapy procedure are [facility] Not in the Anticoagulant results section. CBC WITHOUT Routine 03/27/2022 Transplant Liver Results for DIFFERENTIAL, B 8:12 AM CDT (HCC) this Medication Therapy procedure are Surgical Physician Assistant Not in the Anticoagulant results section. CMV DNA DETECT/QUANT, P Routine 03/27/2022 Transplant Liver Results for 8:12 AM CDT (HCC) this Medication Therapy procedure are [facility] Not in the Anticoagulant results section. OTORHINOLARYNGOLOGY [...] CDT (HCC) this Medication Therapy procedure are [facility] Not in the Anticoagulant results section. COMPREHENSIVE METABOLIC Routine 03/20/2022 Transplant Liver Results for PANEL, S/P 8:13 AM CDT (HCC) this Medication Therapy procedure are Surgical Physician Assistant Not in the Anticoagulant results section. CBC WITHOUT Routine 03/20/2022 Transplant Liver Results for DIFFERENTIAL, B 8:13 AM CDT (HCC) this Medication Therapy procedure are Surgical Physician Assistant Not in the Anticoagulant results section. TACROLIMUS LEVEL, B Routine 03/20/2022 Transplant Liver Resu lts for 8:12 AM CDT (HCC) this Medication Therapy procedure are Surgical Physician Assistant Not in the Anticoagulant results section. CMV DNA DETECT/QUANT, P Routine 03/20/2022 Transplant Liver Results for 8:12 AM CDT (HCC) this Medication Therapy procedure are Surgical Physician Assistant Not in the Anticoagulant results section. CT [...] CDT (HCC) this Medication Therapy procedure are Surgical Physician Assistant Not in the Anticoagulant results section. GLUCOSE, FASTING, S/P Routine 03/13/2022 Transplant Liver Re sults for 8:00 AM CDT (HCC) this Medication Therapy procedure are Surgical Physician Assistant Not in the Anticoagulant results section. COMPREHENSIVE METABOLIC Routine 03/13/2022 Transplant Liver Results for PANEL, S/P 8:00 AM CDT (HCC) this Medication Therapy procedure are Surgical Physician Assistant Not in the Anticoagulant results section. CBC WITHOUT Routine 03/13/2022 Transplant Liver Results for DIFFERENTIAL, B 8:00 AM CDT (HCC) this Medication Therapy procedure are Surgical Physician Assistant Not in the Anticoagulant results section. CMV DNA DETECT/QUANT, P Routine 03/13/2022 Transplant Liver Results for 8:00 AM CDT (HCC) this Medication Therapy procedure are Surgical Physician Assistant Not in the Anticoagulant results section. GLUCOSE, FASTING, S/P Routine 02/27/2022 Transplant Liver Re sults for 8:08 AM CDT (HCC) this Medication Therapy procedure are Surgical Physician Assistant Not in the Anticoagulant results section. TACROLIMUS LEVEL, B Routine 02/27/2022 Transplant Liver Resu lts for 8:07 AM CDT (HCC) this Medication Therapy procedure are [facility] Not in the Anticoagulant results section. COMPREHENSIVE METABOLIC Routine 02/27/2022 Transplant Liver Results for PANEL, S/P 8:07 AM CDT (HCC) this Medication Therapy procedure are Surgical Physician Assistant Not in the Anticoagulant results section. CBC WITHOUT Routine 02/27/2022 Transplant Liver Results for DIFFERENTIAL, B 8:07 AM CDT (HCC) this Medication Therapy procedure are Surgical Physician Assistant Not in the Anticoagulant results section. CMV DNA DETECT/QUANT, P Routine 02/27/2022 Transplant Liver Results for 8:07 AM CDT ([facility]) this Medication Therapy procedure are Senior [facility] Not in the Anticoagulant results section. TACROLIMUS LEVEL, B Routine 02/20/2022 Transplant Liver Resu lts for 8:13 AM CDT ([facility]) this Medication Therapy procedure are [facility] Not in the Anticoagulant results section. GLUCOSE, FASTING, S/P Routine 02/20/2022 Transplant Liver Re sults for 8:13 AM CDT ([facility]) this Medication Therapy procedure are Surgical Physician Assistant Not in the Anticoagulant results section. COMPREHENSIVE METABOLIC Routine 02/20/2022 Transplant Liver Results for PANEL, S/P 8:13 AM CDT ([facility]) this Medication Therapy procedure are Senior [facility] Not in the Anticoagulant results section. CBC WITHOUT Routine 02/20/2022 Transplant Liver Results for DIFFERENTIAL, B 8:13 AM CDT ([facility]) this Medication Therapy procedure are Senior [facility] Not in the Anticoagulant results section. CMV DNA DETECT/QUANT, P Routine 02/20/2022 Transplant Liver Results for 8:13 AM CDT ([facility]) this Medication Therapy procedure are Senior Living Not in the Anticoagulant results section. from Last 3 Months Allergies [...] Liver times a day. (HCC), Medication Therapy Senior Living Not Anticoagulant sevelamer carbonate daily. 0 04/01/2022 [...] Cytomegalovirus or open (HCC), Medication capsules. Therapy Surgical Physician Assistant Not Anticoagulant tacrolimus (PROGRAF) Take 2 capsules 360 capsule 3 04/02/202205/06 Discontinued 0.5 mg (1 mg total) by (Reo rder) capsuleIndications: mouth every 12 Transplant Liver (twelve) hours. 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 Colitis Cytomegalovirus 06/12/2021 Acute Bronchiolitis Due To Other Specified Organisms 1 08/13/2020 Medication Therapy Surgical Physician Assistant Not Anticoagulant 021 Chronic Failure Renal End [...] at Date Recorded Male 05/16/2020 4:27 PM PERSONNEL PLACEMENT SPECIALIST Last Filed Vital Signs Vital Sign Reading [...] Index 23.32 12/10/2021 1:29 PM CDT Results DX Foot Ankle Right 3+ Views (05/10/2022 7:41 AM PERSONNEL PLACEMENT SPECIALIST) Anatomical Region Laterality Modality Lower Extremity, Foot, Ankle, Musculoskeletal RST LOS, Right Digital Radiography Musculoskeletal ARZ LOS, Muskuloskeletal FLA LOS Specimen (Source) Anatomical Collection Method Collection Time Re ceived Time Location / / Volume Laterality 05/10/2022 8:03 AM PERSONNEL PLACEMENT SPECIALIST Impressions 05/10/2022 8:06 AM PERSONNEL PLACEMENT SPECIALIST Demineralization. Marked pes planus and hindfoot valgus. Scattered degenerative changes about the foot and ankle which are not s ubstantially changed from the most recent prior exam, though, have progressed since 2019. Plan tar calcaneal spur. Healed left ankle fracture deformity. Ad vanced degenerative changes of the visualized left ankle and foot. Vascular calcifications. Narrative 05/10/2022 8:06 AM PERSONNEL PLACEMENT SPECIALIST EXAM: ??DX FOOT ANKLE RIGHT 3+ VIEWS [...] Jeremie Rose M.D. IMG DIAGNOSTIC IMAGING PROCE IKE DX Elbow Left 2 Views (05/10/2022 7:41 AM PERSONNEL PLACEMENT SPECIALIST) Anatomical Region Laterality Modality Upper Extremity, Elbow, Musculoskeletal RST LOS, Left Digital Radiography Musculoskeletal ARZ LOS, Muskuloskeletal FLA LOS Specimen (Source) Anatomical Collection Method Collection Time Re ceived Time Location / / Volume Laterality 05/10/2022 8:03 AM PERSONNEL PLACEMENT SPECIALIST Impressions 05/10/2022 8:05 AM PERSONNEL PLACEMENT SPECIALIST Left radial head endoprosthesis. This is backed out approximately 3mm, with associated lucency along the tip of the prosthesis. 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 Multiple small osteochondral bodi es about the joint. Elbow joint effusion. Small amount of heterotopic ossification along the media l humeral epicondyle. Osteopenia. Arterial calcifications. Narrative 05/10/2022 8:05 AM PERSONNEL PLACEMENT SPECIALIST EXAM: ??DX ELBOW LEFT 2 VIEWS Procedure [...] I/II Combined cPRA, S (05/08/2022 8:16 AM PERSONNEL PLACEMENT SPECIALIST) [facility] Time Signature Class I/II 0 Not Applicable 05/10/2022 DBB8 Combined cPRA 4:04 PM PERSONNEL PLACEMENT SPECIALIST Comment: ----ADDITIONAL INFORMATION---- Calculated PRA (cPRA) is the percentage of donors expected to have HLA antigens listed as unacceptable for a candidate on the waiting list. Unacceptable antigens include serologic equivalents that have a normalized Mean Fluorescence Intensity (MFI) >= 2000 and antigens that demonstr ate Prozone Phenomenon. The cPRA is calculated based on the HLA frequencies published by [employer] listed here: http://optn.tr ansplant.[facility].gov CLIA: [id number] ??CLIA Warehouse Order Filler: KRISTAL MIMS MD,PhD Combined cPRA Specificities NONE 05/10/2022 4 :04 PM PERSONNEL PLACEMENT SPECIALIST DBB8 Specimen Anatomical Collection Method Collection Time Receive d Time (Source) Location / / Volume Laterality Blood 05/08/2022 8:16 AM 8:01 PERSONNEL PLACEMENT SPECIALIST AM PERSONNEL PLACEMENT SPECIALIST Angélica Granger P.A.-C. LAB HLA ORDERABLES Performing Organization Address City/State/ZIP Code Phon e Number [facility] - [address] [place], [place] [address] [facility] [address] [place] [address] Laboratories-[facility] [address] (ABNORMAL) CMV DNA Detect / Quant, Plasma (05/08/2022 8:16 AM PERSONNEL PLACEMENT SPECIALIST)Only the most recent of8 resultswithin the time period is included. [facility] Time Signature CMV DNA <35 (A) Undetected 05/09/2022 [facility] Detect/Quant, IU/mL 1:01 PM PERSONNEL PLACEMENT SPECIALIST P Comment: Result in log IU/mL is <1.54. CMV DNA is detected, but level present i s <35 IU/mL (<1.54 log IU/mL). This assay cannot accurately quantify CMV DNA below this level. ----ADDITIONAL INFORMATION---- The quantification range of this assay i s 35 to 10,000,000 IU/mL (1.54 log to 7.00 log IU/mL). Testing was performed u sing the tika CMV test ([employer] with the tika [id number] System. Specimen Anatomical Collection Method Collection Time Receive d Time (Source) Location / / Volume Laterality Blood (Blood, 05/08/2022 8:16 AM 05/08/20 7:34 Venous) PERSONNEL PLACEMENT SPECIALIST PM PERSONNEL PLACEMENT SPECIALIST Angélica Granger P.A.-C. LAB MICROBIOLOGY - BLOOD ORD ERABLES Performing Organization Address [facility] Phon e Number [facility] [address] [place], [place] [address] [place], [place] [id number] [place] [address] Dr. [place] HLA Class II SAB Antibody Screen (05/08/2022 8:16 AM PERSONNEL PLACEMENT SPECIALIST) [facility] Method Time Signature Class II SAB Negative Not Applicable 05/10/2022 DBB8 Overall Result 4:04 PM PERSONNEL PLACEMENT SPECIALIST SAB [id number] NONE 05/10/2022 DBB8 Specificity 4:04 PM PERSONNEL PLACEMENT SPECIALIST SAB [id number] NONE 05/10/2022 DBB8 Specificity 4:04 PM PERSONNEL PLACEMENT SPECIALIST SAB DQB1 NONE 05/10/2022 DBB8 Specificity 4:04 PM PERSONNEL PLACEMENT SPECIALIST SAB DPB1 NONE 05/10/2022 DBB8 Specificity 4:04 PM PERSONNEL PLACEMENT SPECIALIST Comment: ----ADDITIONAL INFORMATION---- Method: Luminex Flow Cytometry CLIA: [id number] ??CLIA Warehouse Order Filler: KRISTAL MIMS MD,PhD Specimen Anatomical Collection Method Collection Time Receive d Time (Source) Location / / Volume Laterality Blood (Blood, 05/08/2022 8:16 AM 05/09/20 22 8:01 Venous) PERSONNEL PLACEMENT SPECIALIST AM PERSONNEL PLACEMENT SPECIALIST Otoniel Norwood Jr., D.O. LAB HLA ORDERABLES Performing Organization Address [facility] Phon e Number [facility] [address] [place], [place] [address] [facility] [address]BB[address] [place], [place] [address] [place] [address] HLA Class I SAB Antibody Screen (05/08/2022 8:16 AM PERSONNEL PLACEMENT SPECIALIST) [facility] Method Time Signature Class I SAB Negative Not Applicable 05/10/2022 DBB8 Overall Result 4:03 PM PERSONNEL PLACEMENT SPECIALIST SAB A NONE 05/10/2022 DBB8 Specificity 4:03 PM PERSONNEL PLACEMENT SPECIALIST SAB B NONE 05/10/2022 DBB8 Specificity 4:03 PM PERSONNEL PLACEMENT SPECIALIST SAB C NONE 05/10/2022 DBB8 Specificity 4:03 PM PERSONNEL PLACEMENT SPECIALIST Comment: ----ADDITIONAL INFORMATION---- Method: Luminex Flow Cytometry CLIA: [id number] ??CLIA Warehouse Order Filler: KRISTAL MIMS MD,PhD Specimen Anatomical Collection Method Collection Time Receive d Time (Source) Location / / Volume Laterality Blood 05/08/2022 8:16 AM 8:01 PERSONNEL PLACEMENT SPECIALIST AM PERSONNEL PLACEMENT SPECIALIST Angélica Granger P.A.-C. LAB HLA ORDERABLES Performing Organization Address City/[facility]/ZIP Code Phon e Number [facility] - [address] [place], [place] [address] [facility] [address] [place] [address] [facility] [address] (ABNORMAL) Tacrolimus, B (05/08/2022 8:16 AM PERSONNEL PLACEMENT SPECIALIST)Only the most recent of8 resultswithin the time period is included. athologist Signature Tacrolimus, B 2.1 (L) 5.0-15.0 05/09/2022 SDSC (Trough) 10:56 AM PERSONNEL PLACEMENT SPECIALIST ng/mL Comment: ----ADDITIONAL INFORMATION---- Target steady-state trough [...] [facility] in a manner consistent with CLIA requirements. This test has not been cleared or approved by the U.S. Mer d and Drug Administration. Specimen Anatomical Collection Method Collection Time Receive d Time (Source) Location / / Volume Laterality Blood (Blood, 05/08/2022 8:16 AM 05/09/20 7:42 Venous) PERSONNEL PLACEMENT SPECIALIST AM PERSONNEL PLACEMENT SPECIALIST Angélica Granger P.A.-C. LAB BLOOD NON ADD-ON Performing Organization Address City/[facility]/ZIP Code Phon e Number [facility] [address] [place], [place] [address] [place] [address] [place] [address] [facility] [address] [place] (ABNORMAL) CBC without Differential (05/08/2022 8:16 AM PERSONNEL PLACEMENT SPECIALIST)Only the most recent of8 resultswithin the time period is included. Patholo gist Method Time Signature Hemoglobin 10.1 (L) 13.2 - 05/08/2022 CNFL 16.6 g/dL 8:38 AM PERSONNEL PLACEMENT SPECIALIST Hematocrit 31.4 (L) 38.3 - 05/08/2022 CNFL 48.6 % 8:38 AM PERSONNEL PLACEMENT SPECIALIST Erythrocytes 3.13 (L) 4.35 - 05/08/2022 CNFL 5.65 8:38 AM PERSONNEL PLACEMENT SPECIALIST x10(12)/L MCV 100.3 (H) 78.2 - 05/08/2022 CNFL 97.9 fL 8:38 AM PERSONNEL PLACEMENT SPECIALIST RBC Distrib Width 13.0 11.8 - 05/08/2022 CNFL 14.5 % 8:38 AM PERSONNEL PLACEMENT SPECIALIST Platelet Count 269 135 - 317 05/08/2022 CNFL x10(9)/L 8:38 AM PERSONNEL PLACEMENT SPECIALIST Leukocytes 5.3 3.4 - 9.6 05/08/2022 CNFL x10(9)/L 8:38 AM PERSONNEL PLACEMENT SPECIALIST Specimen Anatomical Collection Method Collection Time Receive d Time (Source) Location / / Volume Laterality Blood (Blood, 05/08/2022 8:16 AM 05/08/20 8:17 Venous) PERSONNEL PLACEMENT SPECIALIST AM PERSONNEL PLACEMENT SPECIALIST Angélica Granger P.A.-C. LAB BLOOD ADD-ON Performing Organization Address City/State/ZIP Code Phon e Number [facility]- [address] [place] [address] [place] [address] (ABNORMAL) Glucose, Fasting (05/08/2022 8:16 AM PERSONNEL PLACEMENT SPECIALIST)Only the most recent of8 resultswithin the time period is included. P athologist Signature Glucose, P 109 (H) 70 - 100 05/08/2022 CNFL mg/dL 8:36 AM PERSONNEL PLACEMENT SPECIALIST Last Intake 12 hr 05/08/2022 CNFL 8:17 AM PERSONNEL PLACEMENT SPECIALIST Specimen Anatomical Collection Method Collection Time Receive d Time (Source) Location / / Volume Laterality Blood (Blood, 05/08/2022 8:16 AM 05/08/20 8:17 Venous) PERSONNEL PLACEMENT SPECIALIST AM PERSONNEL PLACEMENT SPECIALIST Angélica Granger P.A.-C. LAB BLOOD NON ADD-ON Performing Organization Address City/State/ZIP Code Phon e Number [facility]- [address] [place] [id number] [place] [address] [address] (ABNORMAL) Comprehensive Metabolic Panel (05/08/2022 8:16 AM PERSONNEL PLACEMENT SPECIALIST)Only the most recent of8 resultswithin the time period is included. Analysis Performed At Patho logist Time Signature Potassium, P 4.0 3.6 - 5.2 05/08/2022 CNFL mmol/L 8:40 AM PERSONNEL PLACEMENT SPECIALIST Sodium, P 133 (L) 135 - 145 05/08/2022 CNFL mmol/L 8:40 AM PERSONNEL PLACEMENT SPECIALIST Chloride, P 97 (L) 98 - 107 05/08/2022 CNFL mmol/L 8:40 AM PERSONNEL PLACEMENT SPECIALIST Bicarbonate, P 23 22 - 29 05/08/2022 CNFL mmol/L 8:40 AM PERSONNEL PLACEMENT SPECIALIST Anion Gap, P 13 7 - 15 05/08/2022 CNFL 8:40 AM PERSONNEL PLACEMENT SPECIALIST BUN (Blood Urea 37 (H) 8 - 24 05/08/2022 CNFL Nitrogen), P mg/dL 8:40 AM PERSONNEL PLACEMENT SPECIALIST Creatinine 2.98 (H) 0.74 - 05/08/2022 CNFL 1.35 mg/dL 8:40 AM PERSONNEL PLACEMENT SPECIALIST Estimated GFR 22 (L) >=60 05/08/2022 CNFL (eGFR) mL/min/BSA 8:40 AM PERSONNEL PLACEMENT SPECIALIST Comment: Estimated GFR calculated using the 2020 CKD_EPI creatinine equation. Calcium, Total, P 9.1 8.8 - 10.2 mg/dL 05/08/2022 8:40 AM PERSONNEL PLACEMENT SPECIALIST CNFL Glucose, P CANCELED mg/dL 05/08/2022 8:17 AM PERSONNEL PLACEMENT SPECIALIST CNFL Comment: Duplicate test request. Result canceled by the ancillary. Protein, Total, P 6.6 6.3 - 7.9 g/dL 05/08/2022 8:40 A M PERSONNEL PLACEMENT SPECIALIST CNFL Albumin, P 4.0 3.5 - 5.0 g/dL 05/08/2022 8:40 AM PERSONNEL PLACEMENT SPECIALIST C NFL Aspartate Aminotransferase (AST), 17 8 - 48 U/L 05/08 8:40 AM PERSONNEL PLACEMENT SPECIALIST CNFL P Alkaline Phosphatase, P 114 40 - 129 U/L 05/08/2022 8: 40 AM PERSONNEL PLACEMENT SPECIALIST CNFL Alanine Aminotransferase (ALT), P 15 7 - 55 U/L 05/08 8:40 AM PERSONNEL PLACEMENT SPECIALIST CNFL Bilirubin, Total, P 0.4 <=1.2 mg/dL 05/08/2022 8:40 AM PERSONNEL PLACEMENT SPECIALIST CNFL Specimen Anatomical Collection Method Collection Time Receive d Time (Source) Location / / Volume Laterality Blood (Blood, 05/08/2022 8:16 AM 05/08/20 8:17 Venous) PERSONNEL PLACEMENT SPECIALIST AM PERSONNEL PLACEMENT SPECIALIST Angélica Granger P.A.-C. LAB BLOOD ADD-ON Performing Organization Address City/State/ZIP Code Phon e Number [place] [address] [place] [address] [address] XR ELBOW 3 VIEWS LEFT-Outside Skeletal Xray [...] Not In System IMG DIAGNOSTIC IMAGING PROCE DURCLARKE Performing Organization Address City/State/ZIP Code Phon e Number [facility] NA NOSE-Otorhinolaryngology Image Exam (04/25/2022 3:54 PM [...] Organization Address City/State/ZIP Code Phon e Number [facility] NA (ABNORMAL) Bacterial Culture, Aerobic + Susc (04/25/2022 3:44 PM CDT)Only the most recent of2 resultswithin the time period is included. [facility] gist Method Time Signature Bacterial SERRATIA MARCESCENS [...] City/State/ZIP Code Phon e Number [facility] - [address] [place] [address] [facility] [place] [address] [facility] [address] [facility] [address] Chest without IV Contrast (03/13/2022 2:29 [...]
--- OUTSIDE RECORDS SUMMARY | 2022-05-17 18:15 | XMS_ITS | Encounter Summary ---
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 [address] [place] [phone] 05/23/2022 Clinical Admitting/Central Communication Scheduling 05/27/2022 Comprehensive Visit Orthopedic Surgery Markus Sams M.D., Ph.D. [address] [place] [phone] 05/29/2022 Office Visit Otorhinolaryngology Dex Matta, RAMONA, C.N.P., M.S.N. [address] [place] [phone] 05/29/2022 Office Visit Otorhinolaryngology Nadeem Maradiaga, P.Murtaza.-Arley., M.S. [address] [place] [phone] 05/31/2022 Appointment Radiology Guilherme Matt MPAS, Jennifer., M.S. [address] [place] [address] [phone] 06/05/2022 Appointment Laboratory Medicine Angélica Granger P.A.-C. [address] [place] [phone] 06/19/2022 Appointment Laboratory Medicine Angélcia Granger P.A.-C. [address] [place] [phone] 07/03/2022 Appointment Laboratory Medicine Angélica Granger P.A.-C. [address] [place] [phone] 07/17/2022 Appointment Laboratory Medicine Angélica Granger P.A.-C. [address] [place] [phone] 07/31/2022 Appointment Laboratory Medicine Angélica Granger P.A.-C. [address] [place] [phone] 08/14/2022 Appointment Laboratory Medicine Angélica Granger P.A.-C. [address] [place] [address] [phone] 08/28/2022 Appointment Laboratory Medicine Angélica Granger P.A.-C. [address] [place] [address] [phone] documented as of this encounter Visit Diagnoses Not on filedocumented in this encounter Additional Health Concerns Assessment Noted Time PHQ-9 Depression Total Score: 4 11/28/2020 10:17 AM CD T documented as of this encounter Care Teams Renal Case Manager Relationship Specialty Start Date End Date Elsewhere, Pcp PCP - General Family Medicine 07/29/[address] [facility] - Laboratory Medicine 04/12/[address] [address] documented as of this encounter
--- OUTSIDE RECORDS SUMMARY | 2022-05-17 18:15 | XMS_ITS | Encounter Summary ---
:1955 Author Organization [facility] Address [address] [place] [address] Care Team Providers Name Role Phone Elsewhere, Pcp Primary Care Provider Unavailable Reason for Referral Outpatient (Routine) - Closed Specialty Diagnoses / Procedures Referred By Contact Refer red To Contact Diagnoses Pain Elbow Left Dee Machuca [facility] Procedures DX Elbow Left 2 Views Edmundo, M.S. 200 [place] [address] Referral ID Status Reason Start Date Expiration Date Visits Requ ested Visits Authorized [id number] Closed 04/30/2022 04/30/2023 1 1 utpatient (Routine) - Closed Specialty Diagnoses / Procedures Referred By Contact Refer red To Contact Diagnoses Pain Right Ankle And Joints Right Foot Jeremie Rose M.D. [facility] Procedures DX Foot Ankle Right 3+ Views 200 [place] [phone] Referral ID Status Reason Start Date Expiration Date Visits Requ ested Visits Authorized [id number] Closed 03/21/2022 03/21/2023 1 1 ETING DATABASE COORDINATOR Reason for Visit Outpatient (Routine) - Closed Specialty Diagnoses / Procedures Referred By Contact Refer red To Contact Diagnoses Pain Right Ankle And Joints Right Foot Jeremie Rose M.D. [facility] Procedures DX Foot Ankle Right 3+ Views [address] [place] [phone] Referral ID Status Reason Start Date Expiration Date Visits Requ ested Visits Authorized [id number] Closed 03/21/2022 03/21/2023 1 1 Encounter Details Date Type Department Care Team Description 05/10/2022 Hospital Encounter Department of Jeremie Rose Pain Ri ght Ankle And Joints Right Foot; Radiology, Kd Gordon M.D. Pain Elbow Left Building, in [address] [place], [place] [address] [place] [phone] [place], [place] [phone] (Work) [phone] Social History Tobacco Use Types Packs/Day Years [...] Date Recorded Male 05/16/2020 4:27 PM MARKETING DATABASE COORDINATOR documented as of this encounter Medications [...] 3 10 mg tablet BY MOUTH DAILY azelastine HCl Administer 1 mg into 0 (AZELASTINE NASAL) nostril(s) 2 (two) times a day. Alternating sides, use with sinus rinse 2 times daily. benzonatate (TESSALON Take 100 mg by 0 01/04/2021 PERLES) 100 mg capsule mouth. budesonide (PULMICORT) Add 1 respule to 8 360 mL 3 03/04 0.5 mg/2 mL nebulizer ounces saline and solution irrigate each side of nose twice daily as directed. coenzyme Q10 (CO Q-10) Take 1 capsule by 0 2017 200 mg capsule mouth daily. doxycycline monohydrate TAKE 1 TABLET BY 20 tablet 0 202107/26/2022 (ADOXA) 100 mg tablet MOUTH TWO TIMES A DAY FOR 10 DAYS fluticasone propionate Administer 2 sprays 16 g 12 09/22 (FLONASE) 50 into each nostril mcg/actuation nasal daily. spray ipratropium (ATROVENT) INHALE 2 SPRAYS IN 30 mL 11 02/05 21 mcg (0.03 %) nasal EACH NOSTRIL TWICE spray DAILY, UP TO FIVE TIMES DAILY NEEDED ketoconazole (NIZORAL) Apply 1 application 120 mL 3 10/21 2 % shampoo topically 3 (three) times a week. Apply to damp skin, lather, leave on 5-10 minutes, and rinse lamoTRIgine (LaMICtaL) TAKE 1 TABLET BY 200 tablet 3 022 200 mg tablet MOUTH TWICE DAILY levothyroxine TAKE 1 TABLET(25 90 tablet 3 11/27/2021 (SYNTHROID, LEVOTHROID) MCG) BY MOUTH EVERY 25 mcg MORNING BEFORE tabletIndications: BREAKFAST Transplant Liver (HCC) loratadine (CLARITIN) Take 10 mg by mouth 0 10 mg tablet at bedtime. montelukast (SINGULAIR) Take 10 mg by mouth 0 10 mg tablet at bedtime. multivitamin renal Take 1 tablet by 30 tablet 11 05/26/2021 05/26/2022 failure (DIALYVITE) mouth daily with 100-1 mg tablet dinner. NIFEdipine XL Take 2 tablets (60 180 tablet 3 04/29/202212/2022 (PROCARDIA XL) 30 mg 24 mg total) by mouth hr tablet daily. ofloxacin (OCUFLOX) 0.3 ADMINISTER 5 DROPS 10 mL 3 12/2201/11/2023 % ophthalmic INTO THE RIGHT EAR solutionIndications: FOUR TIMES A DAY Chondritis Pinna Right ondansetron (ZOFRAN) 4 Take 1 tablet (4 mg 20 tablet 0 06/0 02/2021 mg tablet total) by mouth every 8 (eight) hours as needed for nausea or vomiting. predniSONE (DELTASONE) Take 1 tablet (5 mg 30 tablet 0 06/0 09/2021 5 mg tablet total) by mouth daily. Renate-Celestine Rx 1-60-300 Take 1 tablet by 0 12/12/19 22 mg-mg-mcg tablet mouth daily with dinner. sevelamer carbonate daily. 0 04/01/2022 (RENVELA) 800 mg tablet tacrolimus (PROGRAF) Take 4 capsules (2 720 capsule 3 2021 0.5 mg mg total) by mouth 2 capsuleIndications: (two) times a day. 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 traZODone (DESYREL) 100 Take 1 tablet (100 90 tablet 3 12/202108/27/2022 mg tablet mg total) by mouth at bedtime as needed for sleep. Trelegy Ellipta INHALE 1 PUFF BY 60 each 3 03/04/2022 200-62.5-25 mcg inhaler MOUTH DAILY valGANciclovir Take 1 tablet (450 15 tablet 0 04/18/2022 (VALCYTE) 450 mg tablet mg total) by mouth every other day. Take after dialysis on dialysis days. vancomycin (VANCOCIN) TAKE 1 CAPSULE BY 34 capsule 0 021 05/26/2022 125 mg capsule MOUTH FOUR TIMES A DAY FOR 34 DOSES voriconazole (VFEND) Take 200 mg by mouth 0 200 mg tablet 2 (two) times a day. documented as of this encounter Plan of Treatment Upcoming Encounters Date Type Specialty Care Team Description 05/22/2022 Appointment Laboratory Medicine Angélica Granger, Evan.A.-C. [address] [place] [phone] 05/23/2022 Clinical Admitting/Central Communication Scheduling 05/27/2022 Comprehensive Visit Orthopedic Surgery Markus Sams M.D., Ph.D. [address] [place] [phone] 05/29/2022 Office Visit Otorhinolaryngology Dex Matta APRN, C.N.P., M.S.N. [address] [place] [phone] 05/29/2022 Office Visit Otorhinolaryngology Nadeem Maradiaga, P.A.-C., M.S. [address] [place] [phone] 05/31/2022 Appointment Radiology Guilherme Matt MPAS, Edmundo, M.S. [address] [place] [phone] 06/05/2022 Appointment Laboratory Medicine Angélica Granger P.A.-C. [address] [place] [phone] 06/19/2022 Appointment Laboratory Medicine Angélica Granger P.A.-C. [address] [place] [phone] 07/03/2022 Appointment Laboratory Medicine Angélica Granger P.A.-C. [address] [place] [phone] 07/17/2022 Appointment Laboratory Medicine Angélica Granger P.A.-C. [address] [place] [phone] 07/31/2022 Appointment Laboratory Medicine Angélica Granger P.A.-C. [address] [place] [phone] 08/14/2022 Appointment Laboratory Medicine Angélica Granger P.A.-C. [address] [place] [phone] 08/28/2022 Appointment Laboratory Medicine Angélica Granger P.A.-C. [address] [place] [phone] documented as of this encounter Procedures Procedure Name Priority Date/Time Associated Comments Diagnosis DX FOOT ANKLE RAD - Routine 05/10/2022 7:41 Pain Right Ankle Result s for this RIGHT 3+ VIEWS (most inpatients AM MARKETING DATABASE COORDINATOR And Joints Right proce dure are in and all Foot the results outpatients) section. DX ELBOW LEFT 2 RAD - Routine 05/10/2022 7:41 Pain Elbow Left Resul ts for this VIEWS (most inpatients AM MARKETING DATABASE COORDINATOR procedure a re in and all the results outpatients) section. documented in this encounter Results DX Elbow Left 2 Views (05/10/2022 7:41 AM MARKETING DATABASE COORDINATOR) Anatomical Region Laterality Modality Upper Extremity, Elbow, Musculoskeletal RST LOS, Left Digital Radiography Musculoskeletal ARZ LOS, Muskuloskeletal FLA LOS Specimen (Source) Anatomical Collection Method Collection Time Re ceived Time Location / / Volume Laterality 05/10/2022 8:03 AM MARKETING DATABASE COORDINATOR Impressions 05/10/2022 8:05 AM MARKETING DATABASE COORDINATOR Left radial head endoprosthesis. This is backed out approximately 3mm, with associated lucency along the tip of the prosthesis. 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 Multiple small osteochondral bodi es about the joint. Elbow joint effusion. Small amount of heterotopic ossification along the media l humeral epicondyle. Osteopenia. Arterial calcifications. Narrative 05/10/2022 8:05 AM MARKETING DATABASE COORDINATOR EXAM: ??DX ELBOW LEFT 2 VIEWS Procedure [...] Machuca P.A.-C., M.S. IMG DIAGNOSTIC IMAGING PROCEDURES DX Foot Ankle Right 3+ Views (05/10/2022 7:41 AM MARKETING DATABASE COORDINATOR) Anatomical Region Laterality Modality Lower Extremity, Foot, Ankle, Musculoskeletal RST LOS, Right Digital Radiography Musculoskeletal ARZ LOS, Muskuloskeletal FLA LOS Specimen (Source) Anatomical Collection Method Collection Time Re ceived Time Location / / Volume Laterality 05/10/2022 8:03 AM MARKETING DATABASE COORDINATOR Impressions 05/10/2022 8:06 AM MARKETING DATABASE COORDINATOR Demineralization. Marked pes planus and hindfoot valgus. Scattered degenerative changes about the foot and ankle which are not s ubstantially changed from the most recent prior exam, though, have progressed since 2019. Plan tar calcaneal spur. Healed left ankle fracture deformity. Ad vanced degenerative changes of the visualized left ankle and foot. Vascular calcifications. Narrative 05/10/2022 8:06 AM MARKETING DATABASE COORDINATOR EXAM: ??DX FOOT ANKLE RIGHT 3+ VIEWS [...] left ankle and foot. Vascular calcifications. Jeremie [facility] DAREN RAMIRES documented in this encounter Visit Diagnoses Diagnosis Pain Right Ankle And Joints Right Foot Pain Elbow Left documented in this encounter Additional Health Concerns Assessment Noted Time PHQ-9 Depression Total Score: 4 11/28/2020 10:17 AM CD T documented as of this encounter Care Teams Jewel Hole Rough Opener Relationship Specialty Start Date End Date Elsewhere, Pcp PCP - General Family Medicine 07/29/17 [facility] - Laboratory Medicine 04/12/20 [place] [address] documented as of this encounter
--- OUTSIDE RECORDS SUMMARY | 2022-05-17 18:15 | XMS_ITS | Encounter Summary ---
:1955 Author Organization [facility] Address [address] [place] [address] Care Team Providers Name Role Phone Elsewhere, Pcp Primary Care Provider Unavailable Reason for Visit Reason Comments Txp Tacrolimus Adjustment Protocol - Liver Encounter Details Date Type Department Care Team Description 05/09/2022 Clinical Curt Moss, Josep [facility] Communication Center for Yolie R, Adjustment Transplantation and R.N. Protocol - Liver Clinical Regeneration [address] [facility] [address] [facility] [phone] Social History Tobacco Use Types Packs/Day Years [...] the highest level of school Associate degree: occupa tidanii, 12/14/2021 you have completed or the highest technical, or vocational p cheriram degree you have received? 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 - 05/09/2022 1:43 PM CST Images from the original note were not included. Tacrolimus level within goal range of Active Patient Thresholds Lab Low High Effective Since Comment Tacrolimus Level 1.5 4 09/21/2021 Recent Tacrolimus Values 02/20/2022 02/27/2022 03/13/2022 03/20/2022 03/27/2022 04/10/2022 04/24/2022 05/08/2022 8:13 AM 8:07 AM 8:00 AM 8:12 AM 8:12 AM 8:20 AM 8:03 AM 8:16 AM Tacrolimus 1.7 1.8 1.5 <1.0 <1.0 1.2 (T) 1.4 (T) 2.1 per Tacrolimus Adjustment Protocol no dose change recommended. Other lab results received and reviewed, stable trends, continue monitoring every 2 weeks. LACER documented in 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 [address] [place] [phone] 05/23/2022 Clinical Admitting/Central Communication Scheduling 05/27/2022 Comprehensive Visit Orthopedic Surgery Markus Sams M.D., Ph.D. [address] [place] [phone] 05/29/2022 Office Visit Otorhinolaryngology Dex Matta APRN, C.N.P., M.S.N. [address] [place] [phone] 05/29/2022 Office Visit Otorhinolaryngology Nadeem Maradiaga, P.Tom., M.S. [address] [place] [phone] 05/31/2022 Appointment Radiology Guilherme Matt, RASTA, PMaryanne., M.S. [address] [place] [phone] 06/05/2022 Appointment Laboratory Medicine Angélica Granger P.A.-C. [address] [place] [address] [phone] 06/19/2022 Appointment Laboratory Medicine Angélica Granger P.A.-C. [address] [place] [phone] 07/03/2022 Appointment Laboratory Medicine Angélica Granger P.A.-C. [address] [place] [address] [phone] 07/17/2022 Appointment Laboratory Medicine Angélica Granger P.A.-C. [address] [place] [phone] 07/31/2022 Appointment Laboratory Medicine Angélica Granger P.A.-C. [address] [place] [phone] 08/14/2022 Appointment Laboratory Medicine Angélica Granger P.A.-C. [address] [place] [phone] 08/28/2022 Appointment Laboratory Medicine Angélica Granger P.A.-C. [address] [place] [phone] documented as of this encounter Visit Diagnoses Not on filedocumented in this encounter Additional Health Concerns Assessment Noted Time PHQ-9 Depression Total Score: 4 11/28/2020 10:17 AM CD T documented as of this encounter Care Teams Honing Machine Try Out Setter Relationship Specialty Start Date End Date Elsewhere, Pcp PCP - General Family Medicine 07/29/17 [facility] - Laboratory Medicine 04/12/[address] [address] documented as of this encounter
--- OUTSIDE RECORDS SUMMARY | 2022-05-17 18:15 | XMS_ITS | Encounter Summary ---
:1955 Author Organization [facility] Address [address] [place] [address] Care Team Providers Name Role Phone Elsewhere, Pcp Primary Care Provider Unavailable Encounter Details Date Type Department Care Team Description 05/02/2022 Orders Only Division of Nephrology and Elissa Wilcox A PRN, Hypertension, Yazdanism C.N.P. 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 [address] [place] [phone] 05/23/2022 Clinical Admitting/Central Communication Scheduling 05/27/2022 Comprehensive Visit Orthopedic Surgery Markus Sams M.D., Ph.D. [address] [place] [phone] 05/29/2022 Office Visit Otorhinolaryngology Dex Matta, RAMONA, C.N.P., M.S.N. [address] [place] [phone] 05/29/2022 Office Visit Otorhinolaryngology Nadeem Maradiaga, P.Murtaza.-Arley., M.S. [address] [place] [phone] 05/31/2022 Appointment Radiology Guilherme Matt MPAS, Jennifer., M.S. [address] [place] [address] [phone] 06/05/2022 Appointment Laboratory Medicine Angélica Granger P.A.-C. [address] [place] [phone] 06/19/2022 Appointment Laboratory Medicine Angélica Granger P.A.-C. [address] [place] [phone] 07/03/2022 Appointment Laboratory Medicine Angélica Granger P.A.-C. [address] [place] [phone] 07/17/2022 Appointment Laboratory Medicine Angélica Granger P.A.-C. [address] [place] [phone] 07/31/2022 Appointment Laboratory Medicine Angélica Granger P.A.-C. [address] [place] [phone] 08/14/2022 Appointment Laboratory Medicine Angélica Granger P.A.-C. [address] [place] [phone] 08/28/2022 Appointment Laboratory Medicine Angélica Granger P.A.-C. [address] [place] [phone] documented as of this encounter Visit Diagnoses Not on filedocumented in this encounter Additional Health Concerns Assessment Noted Time PHQ-9 Depression Total Score: 4 11/28/2020 10:17 AM CD T documented as of this encounter Care Teams Stacking Machine Operator Relationship Specialty Start Date End Date Elsewhere, Pcp PCP - General Family Medicine 07/29/17 [facility] - Laboratory Medicine 04/12/[address] [address] documented as of this encounter
--- OUTSIDE RECORDS SUMMARY | 2022-05-17 18:15 | XMS_ITS | Encounter Summary ---
:1955 Author Organization [facility] Address [address] [place] [address] Care Team Providers Name Role Phone Elsewhere, Pcp Primary Care Provider Unavailable Reason for Referral Outpatient (Routine) - Closed Specialty Diagnoses / Procedures Referred By Contact Refer red To Contact Diagnoses Pain Elbow Left Dee Machuca [facility] Procedures DX Elbow Left 2 Views Edmundo M.S. [address] [place] [phone] Referral ID Status Reason Start Date Expiration Date Visits Requ ested Visits Authorized [id number] Closed 04/30/2022 04/30/2023 1 1 E PROCESSING ENGINEER Reason for Visit Reason Comments Pre-visit Testing Orders Encounter Details Date Type Department Care Team Description 04/29/2022 Clinical Communication Department of Radha Pre -visit Testing Orthopedic Surgery Markus owusu Orders in [place], M.D., Ph.D. 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 [address] [place] [phone] 05/29/2022 Office Visit Otorhinolaryngology Dex Matta APRN CDemetriusNDemetriusP., M.S.N. [address] [place] [phone] 05/29/2022 Office Visit Otorhinolaryngology Nadeem Maradiaga, Edmundo, M.S. [address] [place] [phone] 05/31/2022 Appointment Radiology Guilherme Matt, RASTA, Edmundo, M.S. [address] [place] [phone] 06/05/2022 Appointment Laboratory Medicine Angélica Granger P.A.-C. [address] [place] [phone] 06/19/2022 Appointment Laboratory Medicine Angélica Granger P.A.-C. [address] [place] [phone] 07/03/2022 Appointment Laboratory Medicine Angélica Granger P.A.-C. [address] [place] [phone] 07/17/2022 Appointment Laboratory Medicine Angélica Granger P.A.-C. [address] [place] [phone] 07/31/2022 Appointment Laboratory Medicine Angélica Granger P.A.-C. [address] [place] [phone] 08/14/2022 Appointment Laboratory Medicine Angélica Granger P.A.-C. [address] [place] [phone] 08/28/2022 Appointment Laboratory Medicine Angélica Granger P.A.-C. [address] [place] [phone] documented as of this encounter Results DX Elbow Left 2 Views (05/10/2022 7:41 AM IMAGE PROCESSING ENGINEER) Anatomical Region Laterality Modality Upper Extremity, Elbow, Musculoskeletal RST LOS, Left Digital Radiography Musculoskeletal ARZ LOS, Muskuloskeletal FLA LOS Specimen (Source) Anatomical Collection Method Collection Time Re ceived Time Location / / Volume Laterality 05/10/2022 8:03 AM IMAGE PROCESSING ENGINEER Impressions 05/10/2022 8:05 AM IMAGE PROCESSING ENGINEER Left radial head endoprosthesis. This is backed out approximately 3mm, with associated lucency along the tip of the prosthesis. 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 Multiple small osteochondral bodi es about the joint. Elbow joint effusion. Small amount of heterotopic ossification along the media l humeral epicondyle. Osteopenia. Arterial calcifications. Narrative 05/10/2022 8:05 AM IMAGE PROCESSING ENGINEER EXAM: ??DX ELBOW LEFT 2 VIEWS Procedure Note Virginia Bullokc M.D. - 022 EXAM: DX ELBOW LEFT [...] Machuca P.A.-C., M.S. IMG DIAGNOSTIC IMAGING PROCEDURES documented in this encounter Visit Diagnoses Diagnosis Pain Elbow Left - Primary Pain Right Ankle And Joints Right Foot Pain Elbow Left documented in this encounter Additional Health Concerns Assessment Noted Time PHQ-9 Depression Total Score: 4 11/28/2020 10:17 AM CD T documented as of this encounter Care Teams Humidifier Operator Relationship Specialty Start Date End Date Elsewhere, Pcp PCP - General Family Medicine 07/29/17 [facility] - Laboratory Medicine 04/12/20 [place] [address] documented as of this encounter
--- OUTSIDE RECORDS SUMMARY | 2022-05-17 18:15 | XMS_ITS | Encounter Summary ---
:1955 Author Organization [facility] Address [address] [place] [address] Care Team Providers Name Role Phone Elsewhere, Pcp Primary Care Provider Unavailable Encounter Details Date Type Department Care Team Description 05/03/2022 Clinical Communication Irena Gamez [facility] for R, R.N. 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 - 05/06/2022 11:37 AM CST Provider who reviewed results: Dr Wan Recommendations: Increase Prograf to 2 mg BID and stop Cellcept. Continue on Prograf and Prednisone only. Labs are due: 1 week Patient Online Services message was initiated by a [facility] Registered Nurse for report of test results and recommendations. R/ELECTRO OPTICS TECHNICIAN Telephone Encounter - Yolie Dubois R.N. - 05/03/2022 12:18 PM CST Please review labs below. 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 Current Medications & Recent Dose Changes: Tacrolimus 1 mg BID (increased from 0.5 mg daily 03/28/22) Mycophenolate 500 mg BID Prednisone 5 mg daily Labs: Recent Labs 04/24/22 0803 04/10/22 0820 03/27/22 0812 03/20/22 0812 03/13/22 0800 02/27/22 0807 TACROLIMUS 1.4 L 1.2 L <1.0 L <1.0 L 1.5 L 1.8 L Recent Labs 04/24/22 0803 04/10/22 0820 03/27/22 0812 HGB 10.2 L 9.8 L 10.6 L HCT 31.6 L 30.0 L 32.7 L WBC 6.7 10.6 H 6.1 PLT 236 314 299 NA 130 L 133 L 134 L KPLASMA 4.4 3.8 3.8 GLUCOSE CANCELED 116 H CANCELED 119 H CANCELED 111 H BUN 36 H 54 H 37 H CREATININE 2.97 H 3.03 H 3.09 H EGFR 22 L 22 L 21 L ALKPHOS 120 126 150 H AST 18 17 22 ALT 13 14 21 BILITOT 0.4 0.3 0.4 ALBUMIN 4.2 4.1 4.1 Serologies: Recent Labs 04/24/22 0804/10/22 0803/27/22 0812 03/20/22 0812 CMVQUANT <35 A <35 A Undetected <35 A No results for input(s): [...] R.N. *All labs are now found in [facility] - Lab - Flowsheets. For further review of labs, please review there or under Synopsis* R/ELECTRO OPTICS TECHNICIAN documented in 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 [address] [place] [phone] 05/23/2022 Clinical Admitting/Central Communication Scheduling 05/27/2022 Comprehensive Visit Orthopedic Surgery Markus Sams M.D., Ph.D. [address] [place] [phone] 05/29/2022 Office Visit Otorhinolaryngology Dex Matta APRN, C.N.P., M.S.N. [address] [place] [phone] 05/29/2022 Office Visit Otorhinolaryngology Nadeem Maradiaga, P.A.-C., M.S. [address] [place] [phone] 05/31/2022 Appointment Radiology Guilherme Matt MPAS, Miri.Marie., M.S. [address] [place] [phone] 06/05/2022 Appointment Laboratory Medicine Angélica Granger P.A.-C. [address] [place] [phone] 06/19/2022 Appointment Laboratory Medicine Angélica Granger P.A.-C. [address] [place] [phone] 07/03/2022 Appointment Laboratory Medicine Angélica Granger P.A.-C. [address] [place] [phone] 07/17/2022 Appointment Laboratory Medicine Angélica Granger P.A.-C. [address] [place] [phone] 07/31/2022 Appointment Laboratory Medicine Angélica Granger P.A.-C. [address] [place] [phone] 08/14/2022 Appointment Laboratory Medicine Angélica Granger P.A.-C. [address] [place] [phone] 08/28/2022 Appointment Laboratory Medicine Angélica Granger P.A.-C. [address] [place] [phone] documented as of this encounter Visit Diagnoses Diagnosis Transplant Liver (HCC) Medication Therapy Rating Officer Not Anticoa gulant documented in this encounter Additional Health Concerns Assessment Noted Time PHQ-9 Depression Total Score: 4 11/28/2020 10:17 AM CD T documented as of this encounter Care Teams Double Backer Relationship Specialty Start Date End Date Elsewhere, Pcp PCP - General Family Medicine 07/29/17 [facility] - Laboratory Medicine 04/12/[address] [address] documented as of this encounter
--- OUTSIDE RECORDS SUMMARY | 2022-05-17 18:15 | XMS_ITS | Encounter Summary ---
:1955 Author Organization [facility] Address [address] [place] [address] Care Team Providers Name Role Phone Elsewhere, Pcp Primary Care Provider Unavailable Reason for Referral Outpatient (Routine) - Authorized Specialty Diagnoses / Procedures Referred By Contact Refer red To Contact Diagnoses Pain Right Ankle And Joints Right Foot Guilherme Matt MPAS [place] [facility] Procedures US Intermediate Joint Aspiration and or Injection Right Edmundo, M.S. 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 Reason for Visit Appointment Request (Routine) - Closed Specialty Diagnoses / Procedures Referred By Contact Refer red To Contact Orthopedic Surgery Diagnoses Pain Ankle Right Referral ID Status Reason Start Date Expiration Date Visits Requ ested Visits Authorized [id number] Closed 03/15/2022 03/15/2023 1 1 Encounter Details Date Type Department Care Team Description 05/10/2022 Comprehensive Visit Department of [facility] Pain Right Ankle And Orthopedic Surgery Sada Ayoub Joints Right Foot in [place], [facility] [address] [facility] (Primary Dx) [place], [place] [address] [facility] [address] [place], [place] [phone] (Work) [phone] Social History Tobacco Use Types Packs/Day Years [...] at Date Recorded Male 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 [address] [place] [phone] 05/23/2022 Clinical Admitting/Central Communication Scheduling 05/27/2022 Comprehensive Visit Orthopedic Surgery Markus Sams M.D., Ph.D. [address] [place] [phone] 05/29/2022 Office Visit Otorhinolaryngology Dex Matta APRN, C.NFabrice., M.S.N. [address] [place] [phone] 05/29/2022 Office Visit Otorhinolaryngology Nadeem Maradiaga P.A.-C., M.S. [address] [place] [phone] 05/31/2022 Appointment Radiology Guilherme Matt, Edmundo MAGDALENO, M.S. [address] [place] [phone] 06/05/2022 Appointment Laboratory Medicine Angélica Granger P.A.-C. [address] [place] [phone] 06/19/2022 Appointment Laboratory Medicine Angélica Granger P.A.-C. [address] [place] [phone] 07/03/2022 Appointment Laboratory Medicine Angélica Granger P.A.-C. [address] [place] [phone] 07/17/2022 Appointment Laboratory Medicine Angélica Granger P.A.-C. [address] [place] [phone] 07/31/2022 Appointment Laboratory Medicine Angélica Granger P.A.-C. [address] [place] [phone] 08/14/2022 Appointment Laboratory Medicine Angélica Granger P.A.-C. [address] [place] [phone] 08/28/2022 Appointment Laboratory Medicine Angélica Granger P.A.-C. [address] [place] [phone] Scheduled Orders Name Type Priority Associated Order Schedule Diagnoses US Intermediate Joint Imaging RAD - Routine (most Pain Right A nkle Expected: Aspiration and or inpatients and all And Joints Right 05/10/2022 Injection Right outpatients) Foot (Approximate ), Expires: 05/10/2024 documented as of this encounter Visit Diagnoses Diagnosis Pain Right Ankle And Joints Right Foot - Primary documented in this encounter Additional Health Concerns Assessment Noted Time PHQ-9 Depression Total Score: 4 11/28/2020 10:17 AM CD T documented as of this encounter Care Teams Dock Clerk Relationship Specialty Start Date End Date Elsewhere, Pcp PCP - General Family Medicine 07/29/17 [facility] - Laboratory Medicine 04/12/20 [place] [phone] documented as of this encounter
--- OUTSIDE RECORDS SUMMARY | 2022-05-17 18:15 | XMS_ITS | Encounter Summary ---
:1955 Author Organization [facility] Address [address] [place] [address] Care Team Providers Name Role Phone Elsewhere, Pcp Primary Care Provider Unavailable Reason for Referral Outpatient (Routine) - Authorized Specialty Diagnoses / Procedures Referred By Contact Refer red To Contact Pulmonary Medicine Diagnoses Chronic Cough Connie Aaron [facility] M.B.B.S. 200 [place] [address] Referral ID Status Reason Start Expiration Visits Visits Date Date Requested Authorized [id number] Authorized Specialty 05/17/2023 1 1 Services 2 Required OF STRATEGY Outpatient (Routine) - Authorized Specialty Diagnoses / Procedures Referred By Contact Refer red To Contact Diagnoses Chronic Cough Connie Aaron [facility] Procedures DX Chest AP or PA and Lateral 2 Views M.B.B.S. [address] [place] [phone] Referral ID Status Reason Start Date Expiration Date Visits V isits Requested Authorized [id number] Authorized 05/17/2022 05/17/2023 1 1 OF STRATEGY Encounter Details Date Type Department Care Team Description 05/17/2022 Orders Only RST CCM Connie Aaron Chronic Cough (Primary [address] [facility] Abelino HernandezS. Dx) [place], [place] [address] 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 [address] [place] [phone] 05/23/2022 Clinical Admitting/Central Communication Scheduling 05/27/2022 Comprehensive Visit Orthopedic Surgery Markus Sams M.D., Ph.D. [address] [place] [phone] 05/29/2022 Office Visit Otorhinolaryngology Dex Matta APRN, C.N.P., M.S.N. [address] [place] [phone] 05/29/2022 Office Visit Otorhinolaryngology Nadeem Maradiaga P.A.-C., M.S. [address] [place] [phone] 05/31/2022 Appointment Radiology Guilherme Matt MPAS, Edmundo, M.S. [address] [place] [phone] 06/05/2022 Appointment Laboratory Medicine Angélica Granger P.A.-C. [address] [place] [phone] 06/19/2022 Appointment Laboratory Medicine Angélica Granger P.A.-C. [address] [place] [phone] 07/03/2022 Appointment Laboratory Medicine Angélica Granger P.A.-C. [address] [place] [phone] 07/17/2022 Appointment Laboratory Medicine Angélica Granger P.A.-C. [address] [place] [phone] 07/31/2022 Appointment Laboratory Medicine Angélica Granger P.A.-C. [address] [place] [phone] 08/14/2022 Appointment Laboratory Medicine Angélica Granger P.A.-C. [address] [place] [phone] 08/28/2022 Appointment Laboratory Medicine Angélica Granger P.A.-C. [address] [place] [phone] Scheduled Orders Name Type Priority Associated Order Schedule Diagnoses Bacteria / Rimma Microbiology Routine Chronic Cough Expected : Culture, Blood #1 05/17/2022 (Approximate), Expires: 08/17/2023 Bacteria / Rimma Microbiology Routine Chronic Cough Expected : Culture, Blood #2 05/17/2022 (Approximate), Expires: 08/17/2023 Bacterial Culture, Microbiology Routine Chronic Cough Expected : Aerobic + Susc, 05/17/2022 Resp (Approximate), Expires: 08/17/2023 DX Chest AP or PA Imaging RAD - Routine (most Chronic Cough Ex pected: and Lateral 2 inpatients and all 05/17/20 22 Views outpatients) (Approximate), Expires: 08/17/2023 Scheduled Referrals Name Type Priority Associated Diagnoses Order [facility] Pulmonary Medicine Outpatient Referral Routine Chronic Cough E xpected: - General consult 05/17/2022 (clinic) (Approximate), Expires: 08/17/2023 documented as of this encounter Visit Diagnoses Diagnosis Chronic Cough - Primary documented in this encounter Additional Health Concerns Assessment Noted Time PHQ-9 Depression Total Score: 4 11/28/2020 10:17 AM CD T documented as of this encounter Care Teams Architectural Drafter Relationship Specialty Start Date End Date Elsewhere, Pcp PCP - General Family Medicine 07/29/17 [facility] - Laboratory Medicine 04/12/[address] [address] documented as of this encounter
--- OUTSIDE RECORDS SUMMARY | 2022-05-17 18:15 | XMS_ITS | Encounter Summary ---
:1955 Author Organization [facility] Address [address] [place] [address] Care Team Providers Name Role Phone Elsewhere, Pcp Primary Care Provider Unavailable Reason for Referral Outpatient (Routine) - Authorized Specialty Diagnoses / Procedures Referred By Contact Refer red To Contact [facility]hinol[facility]ology [facility] JanetteNJuan Miguel, M.S.N. [address] [place] [phone] Referral ID Status Reason Start Date Expiration Date Visits V isits Requested Authorized [id number] Authorized 05/06/2022 05/05/2025 1 1 Scheduling Instructions Please schedule with me at 10:00 BODIED WATCHMAN Encounter Details Date Type Department Care Team Description 04/30/2022 Orders Only Department of Dex Matta, Otorhinolaryngology in [place] M.S.N. 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 [address] [place] [phone] 05/23/2022 Clinical Admitting/Central Communication Scheduling 05/27/2022 Comprehensive Visit Orthopedic Surgery Markus Sams M.D., Ph.D. [address] [place] [phone] 05/29/2022 Office Visit Otorhinolaryngology Dex Matta APRN, C.N.P., M.S.N. [address] [place] [phone] 05/29/2022 Office Visit Otorhinolaryngology Nadeem Maradiaga P.A.-C., M.S. [address] [place] [phone] 05/31/2022 Appointment Radiology Guilherme Matt MPAS, P.A.-C., M.S. [address] [place] [phone] 06/05/2022 Appointment Laboratory Medicine Angélica Granger P.A.-C. [address] [place] [phone] 06/19/2022 Appointment Laboratory Medicine Angélica Garnger P.A.-C. [address] [place] [phone] 07/03/2022 Appointment Laboratory Medicine Angélica Granger P.A.-C. [address] [place] [phone] 07/17/2022 Appointment Laboratory Medicine Angélica Granger P.A.-C. [address] [place] [phone] 07/31/2022 Appointment Laboratory Medicine Angélica Granger P.A.-C. [address] [place] [phone] 08/14/2022 Appointment Laboratory Medicine Angélica Granger P.A.-C. [address] [place] [phone] 08/28/2022 Appointment Laboratory Medicine Angélica Granger P.A.-C. [address] [place] [address] Scheduled Referrals Name Type Priority Associated Order Schedule Diagnoses Otorhinolaryngology office Outpatient Routine E xpected: visit (clinic) Referral 05/29/2022, Expires: 07/31/2023 documented as of this encounter Visit Diagnoses Not on filedocumented in this encounter Additional Health Concerns Assessment Noted Time PHQ-9 Depression Total Score: 4 11/28/2020 10:17 AM CD T documented as of this encounter Care Teams Central Processing Tech Relationship Specialty Start Date End Date Elsewhere, Pcp PCP - General Family Medicine 07/29/17 [facility] - Laboratory Medicine 04/12/[address] [address] documented as of this encounter
--- OUTSIDE RECORDS SUMMARY | 2022-05-17 18:15 | XMS_ITS | Encounter Summary ---
:1955 Author Organization [facility] Address [address] [place] [address] Care Team Providers Name Role Phone Elsewhere, Pcp Primary Care Provider Unavailable Encounter Details Date Type Department Care Team Description 05/08/2022 Hospital Encounter Department of Angélica Granger ant Liver (HCC); Laboratory Medicine J, P.A.-C. 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 Transplant Liver (HCC), Medication Therapy Graphic Artist Not Anticoagulant torsemide (DEMADEX) 100 Take 1 [...] Appointment Laboratory Medicine Angélica Granger P.ASky [address] [place] [phone] 05/23/2022 Clinical Admitting/Central Communication Scheduling 05/27/2022 Comprehensive Visit Orthopedic Surgery Markus Sams M.D., Ph.D. [address] [place] [phone] 05/29/2022 Office Visit Otorhinolaryngology GosDex jackson APRN, C.N.P., M.S.N. [address] [place] [phone] 05/29/2022 Office Visit Otorhinolaryngology Nadeem Maradiaga P.A.-C., M.S. [address] [place] [phone] 05/31/2022 Appointment Radiology Guilherme Matt MPAS, P.A.-C., M.S. [address] [place] [phone] 06/05/2022 Appointment Laboratory Medicine Angélica Granger P.A.-C. [address] [place] [phone] 06/19/2022 Appointment Laboratory Medicine Angélica Granger P.A.-C. [address] [place] [phone] 07/03/2022 Appointment Laboratory Medicine Angélica Granger P.A.-C. [address] [place] [phone] 07/17/2022 Appointment Laboratory Medicine Angélica Granger P.A.-C. [address] [place] [phone] 07/31/2022 Appointment Laboratory Medicine Angélica Granger P.A.-C. [address] [place] [phone] 08/14/2022 Appointment Laboratory Medicine Angélica Granger P.A.-C. [address] [place] [phone] 08/28/2022 Appointment Laboratory Medicine Angélica Granger P.A.-C. [address] [place] [phone] documented as of this encounter Procedures Procedure Name Priority Date/Time Associated Diagnosis Comme nts HLA CLASS I/II Routine 05/08/2022 8:16 Results fo r this COMBINED CPRA, SERUM AM OUTSIDE PLANT FIELD ENGINEER procedu re are in the results section. CMV DNA DETECT/QUANT, Routine 05/08/2022 8:16 Transplant Liver Results for this P AM OUTSIDE PLANT FIELD ENGINEER (HCC) procedure are in Medication Therapy the resul ts Graphic Artist Not section. Anticoagulant HLA CLASS II SAB Routine 05/08/2022 8:16 Chronic Failure Renal Results for this ANTIBODY SCREEN AM OUTSIDE PLANT FIELD ENGINEER End Stage Renal procedure are in Disease Dialysis the results Dependent (HCC) section. Immunodeficiency (HCC) HLA CLASS I SAB Routine 05/08/2022 8:16 Results f or this ANTIBODY SCREEN AM OUTSIDE PLANT FIELD ENGINEER procedure ar e in the results section. TACROLIMUS LEVEL, B Routine 05/08/2022 8:16 Transplant Liver R esults for this AM OUTSIDE PLANT FIELD ENGINEER (HCC) procedure are in Medication Therapy the resul ts Graphic Artist Not section. Anticoagulant CBC WITHOUT Routine 05/08/2022 8:16 Transplant Liver Results for this DIFFERENTIAL, B AM OUTSIDE PLANT FIELD ENGINEER (HCC) procedure are in Medication Therapy the resul ts Graphic Artist Not section. Anticoagulant GLUCOSE, FASTING, S/P Routine 05/08/2022 8:16 Transplant Liver Results for this AM OUTSIDE PLANT FIELD ENGINEER (HCC) procedure are in Medication Therapy the resul ts Halfway Not section. Anticoagulant COMPREHENSIVE Routine 05/08/2022 8:16 Transplant Liver Results for this METABOLIC PANEL, S/P AM OUTSIDE PLANT FIELD ENGINEER (HCC) procedure are in Medication Therapy the resul ts Graphic Artist Not section. Anticoagulant documented in this encounter Results HLA Class I/II Combined cPRA, S (05/08/2022 8:16 AM OUTSIDE PLANT FIELD ENGINEER) [facility] Method Time Signature Class I/II 0 Not Applicable 05/10/2022 DBB8 Combined cPRA 4:04 PM OUTSIDE PLANT FIELD ENGINEER Comment: ----ADDITIONAL INFORMATION---- Calculated PRA (cPRA) is the percentage of donors expected to have HLA antigens listed as unacceptable for a candidate on the waiting list. Unacceptable antigens include serologic equivalents that have a normalized Mean Fluorescence Intensity (MFI) >= 2000 and antigens that demonstr ate Prozone Phenomenon. The cPRA is calculated based on the HLA frequencies published by [employer]OPT[employer] listed here: http://optn.tr ansplant.[facility].gov CLIA: [id number] ??CLIA Java Websphere Developer: KRISTAL MIMS MD,PhD Combined cPRA Specificities NONE 05/10/2022 4 :04 PM OUTSIDE PLANT FIELD ENGINEER DBB8 Specimen Anatomical Collection Method Collection Time Receive d Time (Source) Location / / Volume Laterality Blood 05/08/2022 8:16 AM 2 8:01 OUTSIDE PLANT FIELD ENGINEER AM OUTSIDE PLANT FIELD ENGINEER Angélica Granger P.A.-C. LAB HLA ORDERABLES Performing Organization Address [facility] Phon e Number [facility] - [address] DBB8 [address] HLA Class I SAB Antibody Screen (05/08/2022 8:16 AM OUTSIDE PLANT FIELD ENGINEER) [facility] Method Time Signature Class I SAB Negative Not Applicable 05/10/2022 DBB8 Overall Result 4:03 PM OUTSIDE PLANT FIELD ENGINEER SAB A NONE 05/10/2022 DBB8 Specificity 4:03 PM OUTSIDE PLANT FIELD ENGINEER SAB B NONE 05/10/2022 DBB8 Specificity 4:03 PM OUTSIDE PLANT FIELD ENGINEER SAB C NONE 05/10/2022 DBB8 Specificity 4:03 PM OUTSIDE PLANT FIELD ENGINEER Comment: ----ADDITIONAL INFORMATION---- Method: Luminex Flow Cytometry CLIA: [id number] ??CLIA Java Websphere Developer: KRISTAL MIMS MD,PhD Specimen Anatomical Collection Method Collection Time Receive d Time (Source) Location / / Volume Laterality Blood 05/08/2022 8:16 AM 2 8:01 OUTSIDE PLANT FIELD ENGINEER AM OUTSIDE PLANT FIELD ENGINEER Angélica Granger P.A.-C. LAB HLA ORDERABLES Performing Organization Address [facility] Phon e Number [facility] - 200 [place], [place] [address] [facility] DBB8 [address] HLA Class II SAB Antibody Screen (05/08/2022 8:16 AM OUTSIDE PLANT FIELD ENGINEER) Patholo gist Method Time Signature Class II SAB Negative Not Applicable 05/10/2022 DBB8 Overall Result 4:04 PM OUTSIDE PLANT FIELD ENGINEER SAB DRB1 NONE 05/10/2022 DBB8 Specificity 4:04 PM OUTSIDE PLANT FIELD ENGINEER SAB CHH052 NONE 05/10/2022 DBB8 Specificity 4:04 PM OUTSIDE PLANT FIELD ENGINEER SAB DQB1 NONE 05/10/2022 DBB8 Specificity 4:04 PM OUTSIDE PLANT FIELD ENGINEER SAB DPB1 NONE 05/10/2022 DBB8 Specificity 4:04 PM OUTSIDE PLANT FIELD ENGINEER Comment: ----ADDITIONAL INFORMATION---- Method: Luminex Flow Cytometry CLIA: [id number] ??CLIA Java Websphere Developer: KRISTAL MIMS MD,PhD Specimen Anatomical Collection Method Collection Time Receive d Time (Source) Location / / Volume Laterality Blood (Blood, 05/08/2022 8:16 AM 05/09/20 8:01 Venous) OUTSIDE PLANT FIELD ENGINEER AM OUTSIDE PLANT FIELD ENGINEER Otoniel Norwood Jr., D.O. LAB HLA ORDERABLES Performing Organization Address City/State/[facility] Code Phon e Number [facility] - [address] [place], [place] [address] [facility] [place]BB[address] [place] [address] [facility] [address] (ABNORMAL) Tacrolimus, B (05/08/2022 8:16 AM OUTSIDE PLANT FIELD ENGINEER) athologist Signature Tacrolimus, B 2.1 (L) 5.0-15.0 05/09/2022 SDSC (Trough) 10:56 AM OUTSIDE PLANT FIELD ENGINEER ng/mL Comment: ----ADDITIONAL INFORMATION---- Target steady-state [...] performa nce characteristics determined by [facility] in a manner consistent with CLIA requirements. This test has not been cleared or approved by the U.S. Mer d and Drug Administration. Specimen Anatomical Collection Method Collection Time Receive d Time (Source) Location / / Volume Laterality Blood (Blood, 05/08/2022 8:16 AM 05/09/20 7:42 Venous) OUTSIDE PLANT FIELD ENGINEER AM OUTSIDE PLANT FIELD ENGINEER Angélica Granger P.A.-C. LAB BLOOD NON ADD-ON Performing Organization Address [facility] Phon e Number [address] [place], [place] [address] [place], [place] [phone] [place] [address] Dr. MURILLO (ABNORMAL) CMV DNA Detect / Quant, Plasma (05/08/2022 8:16 AM OUTSIDE PLANT FIELD ENGINEER) Patholo gist Method Time Signature CMV DNA <35 (A) Undetected 05/09/2022 [facility] Detect/Quant, IU/mL 1:01 PM OUTSIDE PLANT FIELD ENGINEER P Comment: Result in log IU/mL is <1.54. CMV DNA is detected, but level present i s <35 IU/mL (<1.54 log IU/mL). This assay cannot accurately quantify CMV DNA below this level. ----ADDITIONAL INFORMATION---- The quantification range of this assay i s 35 to 10,000,000 IU/mL (1.54 log to 7.00 log IU/mL). Testing was performed u sing the tika CMV test ([employer] with the tika [place] [employer] System. Specimen Anatomical Collection Method Collection Time Receive d Time (Source) Location / / Volume Laterality Blood (Blood, 05/08/2022 8:16 AM 05/08/20 7:34 Venous) OUTSIDE PLANT FIELD ENGINEER PM OUTSIDE PLANT FIELD ENGINEER Angélica Granger P.A.-C. LAB MICROBIOLOGY - BLOOD ORD ERABLES Performing Organization Address City/[facility] Phon e Number [address] [place], [place] [address] [place], [place] [phone] [place] [address] Dr. MURILLO (ABNORMAL) Glucose, Fasting (05/08/2022 8:16 AM OUTSIDE PLANT FIELD ENGINEER) P athologist Signature Glucose, P 109 (H) 70 - 100 05/08/2022 CNFL mg/dL 8:36 AM OUTSIDE PLANT FIELD ENGINEER Last Intake 12 hr 05/08/2022 CNFL 8:17 AM OUTSIDE PLANT FIELD ENGINEER Specimen Anatomical Collection Method Collection Time Receive d Time (Source) Location / / Volume Laterality Blood (Blood, 05/08/2022 8:16 AM 05/08/20 8:17 Venous) OUTSIDE PLANT FIELD ENGINEER AM OUTSIDE PLANT FIELD ENGINEER Angélica Granger P.A.-C. LAB BLOOD NON ADD-ON Performing Organization Address City/State/ZIP Code Phon e Number [facility]- [address] [place] [address] [place] [address] [place] [address] System in [place] [address] Bl (ABNORMAL) Comprehensive Metabolic Panel (05/08/2022 8:16 AM OUTSIDE PLANT FIELD ENGINEER) Analysis Performed At Patho logist Time Signature Potassium, P 4.0 3.6 - 5.2 05/08/2022 CNFL mmol/L 8:40 AM OUTSIDE PLANT FIELD ENGINEER Sodium, P 133 (L) 135 - 145 05/08/2022 CNFL mmol/L 8:40 AM OUTSIDE PLANT FIELD ENGINEER Chloride, P 97 (L) 98 - 107 05/08/2022 CNFL mmol/L 8:40 AM OUTSIDE PLANT FIELD ENGINEER Bicarbonate, P 23 22 - 29 05/08/2022 CNFL mmol/L 8:40 AM OUTSIDE PLANT FIELD ENGINEER Anion Gap, P 13 7 - 15 05/08/2022 CNFL 8:40 AM OUTSIDE PLANT FIELD ENGINEER BUN (Blood Urea 37 (H) 8 - 24 05/08/2022 CNFL Nitrogen), P mg/dL 8:40 AM OUTSIDE PLANT FIELD ENGINEER Creatinine 2.98 (H) 0.74 - 05/08/2022 CNFL 1.35 mg/dL 8:40 AM OUTSIDE PLANT FIELD ENGINEER Estimated GFR 22 (L) >=60 05/08/2022 CNFL (eGFR) mL/min/BSA 8:40 AM OUTSIDE PLANT FIELD ENGINEER Comment: Estimated GFR calculated using the 2020 CKD_EPI creatinine equation. Calcium, Total, P 9.1 8.8 - 10.2 mg/dL 05/08/2022 8:40 AM OUTSIDE PLANT FIELD ENGINEER CNFL Glucose, P CANCELED mg/dL 05/08/2022 8:17 AM OUTSIDE PLANT FIELD ENGINEER CNFL Comment: Duplicate test request. Result canceled by the ancillary. Protein, Total, P 6.6 6.3 - 7.9 g/dL 05/08/2022 8:40 A M OUTSIDE PLANT FIELD ENGINEER CNFL Albumin, P 4.0 3.5 - 5.0 g/dL 05/08/2022 8:40 AM OUTSIDE PLANT FIELD ENGINEER C NFL Aspartate Aminotransferase (AST), 17 8 - 48 U/L 05/08 8:40 AM OUTSIDE PLANT FIELD ENGINEER CNFL P Alkaline Phosphatase, P 114 40 - 129 U/L 05/08/2022 8: 40 AM OUTSIDE PLANT FIELD ENGINEER CNFL Alanine Aminotransferase (ALT), P 15 7 - 55 U/L 05/08 8:40 AM OUTSIDE PLANT FIELD ENGINEER CNFL Bilirubin, Total, P 0.4 <=1.2 mg/dL 05/08/2022 8:40 AM OUTSIDE PLANT FIELD ENGINEER CNFL Specimen Anatomical Collection Method Collection Time Receive d Time (Source) Location / / Volume Laterality Blood (Blood, 05/08/2022 8:16 AM 05/08/20 8:17 Venous) OUTSIDE PLANT FIELD ENGINEER AM OUTSIDE PLANT FIELD ENGINEER Angélica Granger P.A.-C. LAB BLOOD ADD-ON Performing Organization Address City/State/[facility] Code Phon e Number [id number] [place] [address] [place] [address] System [address] (ABNORMAL) CBC without Differential (05/08/2022 8:16 AM OUTSIDE PLANT FIELD ENGINEER) [facility] gist Method Time Signature Hemoglobin 10.1 (L) 13.2 - 05/08/2022 CNFL 16.6 g/dL 8:38 AM OUTSIDE PLANT FIELD ENGINEER Hematocrit 31.4 (L) 38.3 - 05/08/2022 CNFL 48.6 % 8:38 AM OUTSIDE PLANT FIELD ENGINEER Erythrocytes 3.13 (L) 4.35 - 05/08/2022 CNFL 5.65 8:38 AM OUTSIDE PLANT FIELD ENGINEER x10(12)/L MCV 100.3 (H) 78.2 - 05/08/2022 CNFL 97.9 fL 8:38 AM OUTSIDE PLANT FIELD ENGINEER RBC Distrib Width 13.0 11.8 - 05/08/2022 CNFL 14.5 % 8:38 AM OUTSIDE PLANT FIELD ENGINEER Platelet Count 269 135 - 317 05/08/2022 CNFL x10(9)/L 8:38 AM OUTSIDE PLANT FIELD ENGINEER Leukocytes 5.3 3.4 - 9.6 05/08/2022 CNFL x10(9)/L 8:38 AM OUTSIDE PLANT FIELD ENGINEER Specimen Anatomical Collection Method Collection Time Receive d Time (Source) Location / / Volume Laterality Blood (Blood, 05/08/2022 8:16 AM 05/08/20 8:17 Venous) OUTSIDE PLANT FIELD ENGINEER AM OUTSIDE PLANT FIELD ENGINEER Angélica Granger P.A.-C. 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
--- OUTSIDE RECORDS SUMMARY | 2022-05-17 18:16 | XMS_ITS | Encounter Summary ---
:1955 Author Organization [facility] Address [address] [place] [address] Care Team Providers Name Role Phone Elsewhere, Pcp Primary Care Provider Unavailable Reason for Visit Reason Comments Labs Only Encounter Details Date Type Department Care Team Description 04/11/2022 Clinical Communication Curt oLpez, Labs Only Center for Lilia Azeveod R.N., Transplantation and C.C.T.C. 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 - 04/12/2022 8:34 AM CDT Provider who reviewed results: Dr. Emmanuel Recommendations: No changes Labs are due 3 months Patient Online Services message was initiated by a [facility] Registered Nurse for report of test [...] on any changes or recommendations. Thanks, Lilia Hdz R.N., C.C.T.C. *All labs are now found in [facility] - Lab - Flowsheets. For further review of labs, please review there or under Synopsis* documented in 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 [address] [place] [phone] 05/23/2022 Clinical Admitting/Central Communication Scheduling 05/27/2022 Comprehensive Visit Orthopedic Surgery Markus Sams M.D., Ph.D. [address] [place] [phone] 05/29/2022 Office Visit Otorhinolaryngology Dex Matta APRN, C.NDemetriusP., M.S.N. [address] [place] [phone] 05/29/2022 Office Visit Otorhinolaryngology Nadeem Maradiaga P.A.-C., M.S. [address] [place] [phone] 05/31/2022 Appointment Radiology Guilherme Matt, RASTA, Edmundo, M.S. [address] [place] [phone] 06/05/2022 Appointment Laboratory Medicine Angélica Granger P.A.-C. [address] [place] [phone] 06/19/2022 Appointment Laboratory Medicine Angélica Granger P.A.-C. [address] [place] [phone] 07/03/2022 Appointment Laboratory Medicine Angélica Granger P.A.-C. [address] [place] [phone] 07/17/2022 Appointment Laboratory Medicine Angélica Granger P.A.-C. [address] [place] [phone] 07/31/2022 Appointment Laboratory Medicine Angélica Granger P.A.-C. [address] [place] [phone] 08/14/2022 Appointment Laboratory Medicine Angélica Granger P.A.-C. [address] [place] [phone] 08/28/2022 Appointment Laboratory Medicine Angélica Granger P.A.-C. [address] [place] [phone] documented as of this encounter Visit Diagnoses Not on filedocumented in this encounter Additional Health Concerns Assessment Noted Time PHQ-9 Depression Total Score: 4 11/28/2020 10:17 AM CD T documented as of this encounter Care Teams Byproducts Operator Relationship Specialty Start Date End Date Elsewhere, Pcp PCP - General Family Medicine 07/29/17 [facility] - Laboratory Medicine 04/12/[address] [address] documented as of this encounter
--- OUTSIDE RECORDS SUMMARY | 2022-05-17 18:16 | XMS_ITS | Encounter Summary ---
:1955 Author Organization [facility] Address [address] [place] [address] Care Team Providers Name Role Phone Elsewhere, Pcp Primary Care Provider Unavailable Encounter Details Date Type Department Care Team Description 04/18/2022 Orders Only Curt aguirre [facility] Trung Plasencia for Transplantation and Mayuri Wyatt. Clinical Regeneration in [address] [place] [address] [place] [phone] [place] [address] [phone] Social History Tobacco Use Types Packs/Day Years [...] or the highest technical, or vocational p Wayfairram degree you have received? 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 [address] [place] [phone] 05/23/2022 Clinical Admitting/Central Communication Scheduling 05/27/2022 Comprehensive Visit Orthopedic Surgery Markus Sams M.D., Ph.D. [address] [place] [phone] 05/29/2022 Office Visit Otorhinolaryngology Dex Matta, RAMONA, C.N.P., M.S.N. [address] [place] [phone] 05/29/2022 Office Visit Otorhinolaryngology Nadeem Maradiaga, P.A.-C., M.S. [address] [place] [phone] 05/31/2022 Appointment Radiology Guilherme Matt MPAS, P.Murtaza.Marie., M.S. [address] [place] [phone] 06/05/2022 Appointment Laboratory Medicine Angélica Granger P.A.-C. [address] [place] [phone] 06/19/2022 Appointment Laboratory Medicine Angélica Granger P.A.-C. [address] [place] [phone] 07/03/2022 Appointment Laboratory Medicine Angélica Granger P.A.-C. [address] [place] [phone] 07/17/2022 Appointment Laboratory Medicine Angélica Granger P.A.-C. [address] [place] [phone] 07/31/2022 Appointment Laboratory Medicine Angélica Granger P.A.-C. [address] [place] [address] [phone] 08/14/2022 Appointment Laboratory Medicine Angélica Granger P.A.-C. [address] [place] [phone] 08/28/2022 Appointment Laboratory Medicine Angélica Granger P.A.-C. [address] [place] [phone] documented as of this encounter Visit Diagnoses Not on filedocumented in this encounter Additional Health Concerns Assessment Noted Time PHQ-9 Depression Total Score: 4 11/28/2020 10:17 AM CD T documented as of this encounter Care Teams Brimming Machine Operator Relationship Specialty Start Date End Date Elsewhere, Pcp PCP - General Family Medicine 07/29/17 [facility] - Laboratory Medicine 04/12/20 [place] [phone] documented as of this encounter
--- OUTSIDE RECORDS SUMMARY | 2022-05-17 18:16 | XMS_ITS | Encounter Summary ---
:1955 Author Organization [facility] Address [address] [place] [address] Care Team Providers Name Role Phone Elsewhere, Pcp Primary Care Provider Unavailable Encounter Details Date Type Department Care Team Description 04/29/2022 Orders Only Division of Nephrology Babcock, Chron ic Failure 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) (Primary Dx); and Hypertension in Otoniel Tubbs Jr., Immunod eficiency (HCC) [place], [place] D.O. [address] [facility] [address] [place] [phone] Social History Tobacco Use Types Packs/Day Years [...] Date Recorded Male 05/16/2020 4:27 PM HIGH RISK OB documented as of 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 [address] [place] [address] [phone] 05/23/2022 Clinical Admitting/Central Communication Scheduling 05/27/2022 Comprehensive Visit Orthopedic Surgery Markus Sams M.D., Ph.D. [address] [place] [address] [phone] 05/29/2022 Office Visit Otorhinolaryngology Dex Matta APRN, C.N.P., M.S.N. [address] [place] [address] [phone] 05/29/2022 Office Visit Otorhinolaryngology Nadeem Maradiaga, PEdgar.Marie., M.S. [address] [place] [phone] 05/31/2022 Appointment Radiology Guliherme Matt, RASTA, PMaryanne., M.S. [address] [place] [phone] 06/05/2022 Appointment Laboratory Medicine Angélica Granger P.A.-C. [address] [place] [phone] 06/19/2022 Appointment Laboratory Medicine Angélica Granger P.A.-C. [address] [place] [phone] 07/03/2022 Appointment Laboratory Medicine Angélica Granger P.A.-C. [address] [place] [phone] 07/17/2022 Appointment Laboratory Medicine Angélica Granger P.A.-C. [address] [place] [phone] 07/31/2022 Appointment Laboratory Medicine Angélica Granger P.A.-C. [address] [place] [address] [phone] 08/14/2022 Appointment Laboratory Medicine Angélica Granger P.A.-C. [address] [place] [phone] 08/28/2022 Appointment Laboratory Medicine Angélica Granger P.A.-C. [address] [place] [phone] documented as of this encounter Results HLA Class II SAB Antibody Screen (05/08/2022 8:16 AM HIGH RISK OB) [facility] Time Signature Class II SAB Negative Not Applicable 05/10/2022 DBB8 Overall Result 4:04 PM HIGH RISK OB SAB DRB1 NONE 05/10/2022 DBB8 Specificity 4:04 PM HIGH RISK OB SAB [id number] NONE 05/10/2022 DBB8 Specificity 4:04 PM HIGH RISK OB SAB DQB1 NONE 05/10/2022 DBB8 Specificity 4:04 PM HIGH RISK OB SAB DPB1 NONE 05/10/2022 DBB8 Specificity 4:04 PM HIGH RISK OB Comment: ----ADDITIONAL INFORMATION---- Method: Luminex Flow Cytometry CLIA: [id number] ??CLIA Insulation Applicator: KRISTAL MIMS MD,PhD Specimen Anatomical Collection Method Collection Time Receive d Time (Source) Location / / Volume Laterality Blood (Blood, 05/08/2022 8:16 AM 05/09/20 22 8:01 Venous) HIGH RISK OB AM HIGH RISK OB Otoniel Norwood Jr., D.O. 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
--- OUTSIDE RECORDS SUMMARY | 2022-05-17 18:16 | XMS_ITS | Encounter Summary ---
:1955 Author Organization [facility] Address [address] [place] [address] Care Team Providers Name Role Phone Elsewhere, Pcp Primary Care Provider Unavailable Reason for Visit Reason Comments Med Refill Encounter Details Date Type Department Care Team Description 04/18/2022 Refill [facility] Med Refill Transplantation and Clinical P.A .-C., M.S. 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 [address] [place] [phone] 05/23/2022 Clinical Admitting/Central Communication Scheduling 05/27/2022 Comprehensive Visit Orthopedic Surgery Markus Sams M.D., Ph.D. [address] [place] [phone] 05/29/2022 Office Visit Otorhinolaryngology Dex Matta APRN, C.N.P., M.S.N. [address] [place] [address] [phone] 05/29/2022 Office Visit Otorhinolaryngology Nadeem Maradiaga, PEdgar.Marie., M.S. [address] [place] [address] [phone] 05/31/2022 Appointment Radiology Guilherme Matt, RASTA, PMaryanne., M.S. [address] [place] [phone] 06/05/2022 Appointment Laboratory Medicine Angélica Granger P.A.-C. [address] [place] [phone] 06/19/2022 Appointment Laboratory Medicine Angélica Granger P.A.-C. [address] [place] [phone] 07/03/2022 Appointment Laboratory Medicine Angélica Granger P.A.-C. [address] [place] [phone] 07/17/2022 Appointment Laboratory Medicine Angélica Granger P.A.-C. [address] [place] [phone] 07/31/2022 Appointment Laboratory Medicine Angélica Granger P.A.-C. [address] [place] [phone] 08/14/2022 Appointment Laboratory Medicine Angélica Granger P.A.-C. [address] [place] [address] [phone] 08/28/2022 Appointment Laboratory Medicine Angélica Granger P.A.-C. [address] [place] [address] [phone] documented as of this encounter Visit Diagnoses Not on filedocumented in this encounter Additional Health Concerns Assessment Noted Time PHQ-9 Depression Total Score: 4 11/28/2020 10:17 AM CD T documented as of this encounter Care Teams Linen Room Supervisor Relationship Specialty Start Date End Date Elsewhere, Pcp PCP - General Family Medicine 07/29/17 [facility] - Laboratory Medicine 04/12/[address] [address] documented as of this encounter
--- OUTSIDE RECORDS SUMMARY | 2022-05-17 18:16 | XMS_ITS | Encounter Summary ---
:1955 Author Organization [facility] Address [address] [place] [address] Care Team Providers Name Role Phone Elsewhere, Pcp Primary Care Provider Unavailable Encounter Details Date Type Department Care Team Description 04/22/2022 Orders Only Division of Nephrology and Elissa Wilcox A PRN, Hypertension, Sabianism C.N.P. 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 [address] [place] [phone] 05/23/2022 Clinical Admitting/Central Communication Scheduling 05/27/2022 Comprehensive Visit Orthopedic Surgery Markus Sams M.D., Ph.D. [address] [place] [phone] 05/29/2022 Office Visit Otorhinolaryngology Dex Matta, RAMONA, C.N.P., M.S.N. [address] [place] [phone] 05/29/2022 Office Visit Otorhinolaryngology Nadeem Maradiaga, P.Murtaza.-Arley., M.S. [address] [place] [address] [phone] 05/31/2022 Appointment Radiology Guilherme Matt MPAS, Jennifer., M.S. [address] [place] [address] [phone] 06/05/2022 Appointment Laboratory Medicine Angélica Granger P.A.-C. [address] [place] [phone] 06/19/2022 Appointment Laboratory Medicine Angélica Granger P.A.-C. [address] [place] [phone] 07/03/2022 Appointment Laboratory Medicine Angélica Granger P.A.-C. [address] [place] [phone] 07/17/2022 Appointment Laboratory Medicine Angélica Granger P.A.-C. [address] [place] [phone] 07/31/2022 Appointment Laboratory Medicine Angélica Granger P.A.-C. [address] [place] [phone] 08/14/2022 Appointment Laboratory Medicine Angélica Granger P.A.-C. [address] [place] [phone] 08/28/2022 Appointment Laboratory Medicine Angélica Granger P.A.-C. [address] [place] [phone] documented as of this encounter Visit Diagnoses Not on filedocumented in this encounter Additional Health Concerns Assessment Noted Time PHQ-9 Depression Total Score: 4 11/28/2020 10:17 AM CD T documented as of this encounter Care Teams Slot Supervisor Relationship Specialty Start Date End Date Elsewhere, Pcp PCP - General Family Medicine 07/29/17 [facility] - Laboratory Medicine 04/12/[address] [address] documented as of this encounter
--- OUTSIDE RECORDS SUMMARY | 2022-05-17 18:16 | XMS_ITS | Encounter Summary ---
:1955 Author Organization [facility] Address [address] [place] [address] Care Team Providers Name Role Phone Elsewhere, Pcp Primary Care Provider Unavailable Reason for Visit Reason Comments Txp Tacrolimus Adjustment Protocol - Liver Encounter Details Date Type Department Care Team Description 04/25/2022 Clinical Curt Moss, Josep [facility] Communication Center for Yolie R, Adjustment Transplantation and R.N. 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 - 04/25/2022 3:52 PM CDT Images from the original note were not included. Tacrolimus level within goal range of Active Patient Thresholds Lab Low High Effective Since Comment Tacrolimus Level 1.5 4 09/21/2021 Recent Tacrolimus Values 02/13/2022 02/20/2022 02/27/2022 03/13/2022 03/20/2022 03/27/2022 04/10/2022 04/24/2022 7:47 AM 8:13 AM 8:07 AM 8:00 AM 8:12 AM 8:12 AM 8:20 AM 8:03 AM Tacrolimus 1.2 (T) 1.7 1.8 1.5 <1.0 <1.0 1.2 (T) 1.4 (T) per Tacrolimus Adjustment Protocol no dose change recommended. Other lab results received and reviewed, stable trends, continue monitoring weekly. documented in 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 [address] [place] [phone] 05/23/2022 Clinical Admitting/Central Communication Scheduling 05/27/2022 Comprehensive Visit Orthopedic Surgery Markus Sams M.D., Ph.D. [address] [place] [phone] 05/29/2022 Office Visit Otorhinolaryngology Dex Matta APRN, C.N.P., M.S.N. [address] [place] [phone] 05/29/2022 Office Visit Otorhinolaryngology Nadeem Maradiaga, Evan.Tom., M.S. [address] [place] [phone] 05/31/2022 Appointment Radiology Guilherme Matt MPAS, PMaryanne., M.S. [address] [place] [phone] 06/05/2022 Appointment Laboratory Medicine Angélica Granger P.A.-C. [address] [place] [phone] 06/19/2022 Appointment Laboratory Medicine Angélica Granger P.A.-C. [address] [place] [phone] 07/03/2022 Appointment Laboratory Medicine Angélica Granger P.A.-C. [address] [place] [address] [phone] 07/17/2022 Appointment Laboratory Medicine Angélica Granger P.A.-C. [address] [place] [address] [phone] 07/31/2022 Appointment Laboratory Medicine Angélica Granger P.A.-C. [address] [place] [phone] 08/14/2022 Appointment Laboratory Medicine Angélica Granger P.A.-C. [address] [place] [phone] 08/28/2022 Appointment Laboratory Medicine Angélica Granger P.A.-C. [address] [place] [phone] documented as of this encounter Visit Diagnoses Not on filedocumented in this encounter Additional Health Concerns Assessment Noted Time PHQ-9 Depression Total Score: 4 11/28/2020 10:17 AM CD T documented as of this encounter Care Teams Inflatable Buildings Laminator Relationship Specialty Start Date End Date Elsewhere, Pcp PCP - General Family Medicine 07/29/17 [facility] - Laboratory Medicine 04/12/[address] [address] documented as of this encounter
--- OUTSIDE RECORDS SUMMARY | 2022-05-17 18:16 | XMS_ITS | Encounter Summary ---
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 [address] [place] [phone] 05/23/2022 Clinical Admitting/Central Communication Scheduling 05/27/2022 Comprehensive Visit Orthopedic Surgery Markus Sams M.D., Ph.D. [address] [place] [phone] 05/29/2022 Office Visit Otorhinolaryngology Dex Matta APRN, C.N.P., M.S.N. [address] [place] [phone] 05/29/2022 Office Visit Otorhinolaryngology Nadeem Maradiaga, P.A.-C., M.S. [address] [place] [phone] 05/31/2022 Appointment Radiology Guilherme Matt MPAS, P.Murtaza.-Arley., M.S. [address] [place] [phone] 06/05/2022 Appointment Laboratory Medicine Angélica Granger P.A.-C. [address] [place] [address] [phone] 06/19/2022 Appointment Laboratory Medicine Angélica Granger P.A.-C. [address] [place] [phone] 07/03/2022 Appointment Laboratory Medicine Angélica Granger P.A.-C. [address] [place] [phone] 07/17/2022 Appointment Laboratory Medicine Angélica Granger P.A.-C. [address] [place] [phone] 07/31/2022 Appointment Laboratory Medicine Angélica Granger P.A.-C. [address] [place] [phone] 08/14/2022 Appointment Laboratory Medicine Angélica Granger P.A.-C. [address] [place] [phone] 08/28/2022 Appointment Laboratory Medicine Angélica Granger P.A.-C. [address] [place] [phone] documented as of this encounter Procedures Procedure Name Priority Date/Time Associated Comments Diagnosis OTORHINOLARYNGOLOGY IMAGE Routine 04/25/2022 3:54 Results for this EXAM PM CDT procedure are i n the results section. documented in this encounter Results NOSE-Otorhinolaryngology Image Exam (04/25/2022 3:54 PM CDT) Specimen (Source) Anatomical Collection Method [...] as of this encounter Care Teams Database Architect Relationship Specialty Start Date End Date Elsewhere, Pcp PCP - General Family Medicine 07/29/17 [facility] - Laboratory Medicine 04/12/[address] [address] documented as of this encounter
--- OUTSIDE RECORDS SUMMARY | 2022-05-17 18:16 | XMS_ITS | Encounter Summary ---
:[address] [facility] Address [address] [place] [address] Care Team Providers Name Role Phone Elsewhere, Pcp Primary Care Provider Unavailable Encounter Details Date Type Department Care Team Description 04/10/2022 Hospital Encounter Department of Angélica Granger ant Liver (HCC); Laboratory Medicine J PDemetriusADurgaC. 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 ofloxacin (OCUFLOX) 0.3 ADMINISTER 5 DROPS 10 [...] daily. 0 04/01/2022 (RENVELA) 800 mg tablet sulfamethoxazole-trimeth Take 1 tablet by 90 tablet 0 01/21 oprim (BACTRIM,SEPTRA) mouth daily. Take 400-80 mg [...] 3 03/04/2022 200-62.5-25 mcg inhaler MOUTH DAILY vancomycin (VANCOCIN) TAKE 1 CAPSULE BY 34 capsule 0 021 05/26/2022 125 mg capsule MOUTH FOUR TIMES A DAY FOR 34 DOSES voriconazole (VFEND) 200 Take 200 mg by 0 mg tablet mouth 2 (two) times a day. isavuconazonium Take 2 capsules 180 capsule 0 01/21/2022 (CRESEMBA) 186 mg (372 mg total) by capsule mouth daily. mycophenolate (CELLCEPT) Take 2 capsules 360 capsule 3 02/1504/22/2022 250 mg (500 mg total) by capsuleIndications: mouth 2 (two) times Transplant Liver ([facility]), a day. Do not Infection break, cut, or open Cytomegalovirus (HCC), capsules. Medication Therapy Group Home Not Anticoagulant NIFEdipine XL (PROCARDIA Take 60 mg by mouth 0 04/29/2022 XL) 30 mg 24 hr tablet daily. tacrolimus (PROGRAF) 0.5 Take 2 capsules (1 360 capsule 3 05/06/2022 mg capsuleIndications: mg total) by mouth Transplant Liver (HCC), every 12 (twelve) Medication Therapy Long hours. Term Not Anticoagulant documented as of 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 [address] [place] [phone] 05/23/2022 Clinical Admitting/Central Communication Scheduling 05/27/2022 Comprehensive Visit Orthopedic Surgery Markus Sams M.D., Ph.D. [address] [place] [phone] 05/29/2022 Office Visit Otorhinolaryngology Dex Matta APRN, C.N.P., M.S.N. [address] [place] [phone] 05/29/2022 Office Visit Otorhinolaryngology Nadeem Maradiaga P.A.-C., M.S. [address] [place] [phone] 05/31/2022 Appointment Radiology Guilherme Matt MPAS, Edmundo, M.S. [address] [place] [phone] 06/05/2022 Appointment Laboratory Medicine Angélica Granger P.A.-C. [address] [place] [address] [phone] 06/19/2022 Appointment Laboratory Medicine Angélica Granger P.A.-C. [address] [place] [address] [phone] 07/03/2022 Appointment Laboratory Medicine Angélica Granger P.A.-C. [address] [place] [address] [phone] 07/17/2022 Appointment Laboratory Medicine Angélica Granger P.A.-C. [address] [place] [phone] 07/31/2022 Appointment Laboratory Medicine Angélica Granger P.A.-C. [address] [place] [phone] 08/14/2022 Appointment Laboratory Medicine Angélica Granger P.A.-C. [address] [place] [phone] 08/28/2022 Appointment Laboratory Medicine Angélica Granger P.A.-C. [address] [place] [phone] documented as of this encounter Procedures Procedure [...] resul ts Group Home Not section. Anticoagulant CBC WITHOUT Routine 04/10/2022 8:20 Transplant Liver Results for this DIFFERENTIAL, B AM CDT (HCC) procedure are in Medication Therapy the resul ts Group Home Not section. Anticoagulant GLUCOSE, FASTING, S/P Routine 04/10/2022 8:20 Transplant Liver Results for this AM CDT (HCC) procedure are in Medication Therapy the resul ts Group Home Not section. Anticoagulant COMPREHENSIVE Routine 04/10/2022 8:20 Transplant Liver Results for this METABOLIC PANEL, S/P AM CDT (HCC) procedure are in Medication Therapy the resul ts Group Home Not section. Anticoagulant documented in this encounter Results (ABNORMAL) CMV DNA Detect / Quant, Plasma (04/10/2022 8:21 AM CDT) [facility] Method Time Signature CMV DNA <35 (A) Undetected 04/11/2022 [facility] Detect/Quant, IU/mL 1:09 PM CDT [...] u sing the tika CMV test ([employer] with the tika 6800 System. Specimen Anatomical Collection Method Collection Time Receive d Time (Source) Location / / Volume Laterality Blood (Blood, 04/10/2022 8:21 AM 04/11/20 7:06 Venous) CDT AM CDT Angélica Granger P.A.-C. LAB MICROBIOLOGY - BLOOD ORD ERABLES Performing Organization Address [facility] Phon e Number [place] [phone] [place], [place] [address] [place], [place] [phone] [place] [address] Dr. MURILLO (ABNORMAL) Tacrolimus, B (04/10/2022 8:20 AM CDT) P athologist Signature Tacrolimus, B 1.2 (L) 5.0-15.0 04/11/2022 [facility] (Trough) 11:25 AM CDT ng/mL [...] performa nce characteristics determined by [facility] in a manner consistent with CLIA requirements. This test has not been cleared or approved by the U.S. Mer d and Drug Administration. Specimen Anatomical Collection Method Collection Time Receive d Time (Source) Location / / Volume Laterality Blood (Blood, 04/10/2022 8:20 AM 04/11/20 7:27 Venous) CDT AM CDT Angélica Granger P.A.-C. LAB BLOOD NON ADD-ON Performing Organization Address City/[facility] Phon e Number [address] [place], [place] [address] [facility] [employer] [place], [place] [phone] [place], [place] [address] [place] (ABNORMAL) Glucose, Fasting (04/10/2022 8:20 [...] LAB BLOOD NON ADD-ON Performing Organization Address City/State/[facility] Code Phon e Number [address] [address] [place] [address] (ABNORMAL) Comprehensive Metabolic Panel (04/10/2022 8:20 [...] P.A.-C. LAB BLOOD ADD-ON Performing Organization Address City/State/[facility] Code Phon e Number [phone] [place] [address] [place] [address] (ABNORMAL) CBC without Differential (04/10/2022 8:20 AM CDT) [facility] gist Method Time Signature Hemoglobin [...] Address City/State/ZIP Code Phon e Number [phone] [place] [address] [place] [address] [address] documented in this encounter Visit Diagnoses Diagnosis Transplant Liver (HCC) Medication Therapy Manager Multimedia Not Anticoa gulant documented in this encounter Additional Health Concerns Assessment Noted Time PHQ-9 Depression Total Score: 4 11/28/2020 10:17 AM CD T documented as of this encounter Care Teams Building Construction Supervisor Relationship Specialty Start Date End Date Elsewhere, Pcp PCP - General Family Medicine 07/29/17 [facility] - Laboratory Medicine 04/12/20 [place] [address] documented as of this encounter
--- OUTSIDE RECORDS SUMMARY | 2022-05-17 18:16 | XMS_ITS | Encounter Summary ---
:1955 Author Organization [facility] Address [address] [place] [address] Care Team Providers Name Role Phone Elsewhere, Pcp Primary Care Provider Unavailable Encounter Details Date Type Department Care Team Description 04/24/2022 Hospital Encounter Department of Angélica Granger ant Liver (HCC); Laboratory Medicine J PDemetriusADurgaC. 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 budesonide (PULMICORT) Add [...] daily. 0 04/01/2022 (RENVELA) 800 mg tablet torsemide (DEMADEX) 100 Take 1 tablet (100 [...] mg tablet 2 (two) times a day. NIFEdipine XL Take 60 mg by mouth 0 10/06/2021 (PROCARDIA XL) 30 mg 24 daily. hr tablet tacrolimus (PROGRAF) Take 2 capsules (1 360 capsule 3 202105/06/2022 0.5 mg mg total) by mouth capsuleIndications: every 12 (twelve) Transplant Liver (HCC), hours. Medication Therapy Jail Not Anticoagulant documented as of 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 [address] [place] [phone] 05/23/2022 Clinical Admitting/Central Communication Scheduling 05/27/2022 Comprehensive Visit Orthopedic Surgery Markus Sams M.D., Ph.D. [address] [place] [phone] 05/29/2022 Office Visit Otorhinolaryngology Dex Matta APRN, C.N.P., M.S.N. [address] [place] [phone] 05/29/2022 Office Visit Otorhinolaryngology Nadeem Maradiaga P.A.-C., M.S. [address] [place] [phone] 05/31/2022 Appointment Radiology Guilherme Matt MPAS, P.A.-C., M.S. [address] [place] [phone] 06/05/2022 Appointment Laboratory Medicine Angélica Granger P.A.-C. [address] [place] [phone] 06/19/2022 Appointment Laboratory Medicine Angélica Granger P.A.-C. [address] [place] [phone] 07/03/2022 Appointment Laboratory Medicine Angélica Granger P.A.-C. [address] [place] [phone] 07/17/2022 Appointment Laboratory Medicine Angélica Granger P.A.-C. [address] [place] [phone] 07/31/2022 Appointment Laboratory Medicine Angélica Granger P.A.-C. [address] [place] [phone] 08/14/2022 Appointment Laboratory Medicine Angélica Granger P.A.-C. [address] [place] [phone] 08/28/2022 Appointment Laboratory Medicine Angélica Granger P.A.-C. [address] [place] [phone] documented as of this encounter Procedures Procedure Name Priority Date/Time Associated Diagnosis Comme nts CMV DNA DETECT/QUANT, Routine 04/24/2022 8:03 Transplant Liver Results for this P AM CDT (HCC) procedure are in Medication Therapy the resul ts Jail Not section. Anticoagulant TACROLIMUS LEVEL, B Routine 04/24/2022 8:03 Transplant Liver R esults for this AM CDT (HCC) procedure are in Medication Therapy the resul ts Jail Not section. 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 Anticoagulant COMPREHENSIVE Routine 04/24/2022 8:03 Transplant Liver Results for this METABOLIC PANEL, S/P AM CDT (HCC) procedure are in Medication Therapy the resul ts Jail Not section. Anticoagulant documented in this encounter Results (ABNORMAL) Tacrolimus, B (04/24/2022 8:03 AM CDT) athologist Signature Tacrolimus, B 1.4 (L) 5.0-15.0 04/25/2022 SDSC (Trough) 11:01 AM CDT ng/mL Comment: ----ADDITIONAL INFORMATION---- Target steady-state trough concentration s vary depending on the type of transplant, concomitant immunosuppressio n, clinical/institutional protocols, and time post-transplant. Results should be interpreted in conjunction with this clinical information and any physic al signs/symptoms of rejection/toxicity. Testing performed by Liquid Chromatograp hy-Tandem Mass Spectrometry (LC-MS/MS). This test was developed and its performa nce characteristics determined by [facility] in a manner consistent with CLIA requirements. This test has not been cleared or approved by the U.S. Mer d and Drug Administration. Specimen Anatomical Collection Method Collection Time Receive d Time (Source) Location / / Volume Laterality Blood (Blood, 04/24/2022 8:03 AM 11/03/20 22 7:06 Venous) CDT AM CDT Angélica Granger P.A.-C. LAB BLOOD NON ADD-ON Performing Organization Address [facility] Phon e Number [address] [place]URILLO [place], [place] [address] [place] [address] MURILLO (ABNORMAL) CMV DNA Detect / Quant, Plasma (04/24/2022 8:03 AM CDT) Patholo gist Method Time Signature CMV DNA <35 (A) Undetected 04/25/2022 [facility] Detect/Quant, IU/mL 3:14 PM CDT P Comment: Result in log [...] u sing the tika CMV test ([employer] with the tika 6800 System. Specimen Anatomical Collection Method Collection Time Receive d Time (Source) Location / / Volume Laterality Blood (Blood, 04/24/2022 8:03 AM 04/25/20 22 7:05 Venous) CDT AM CDT Angélica Granger P.A.-C. LAB MICROBIOLOGY - BLOOD ORD ERABLES Performing Organization Address [facility] Phon e Number [address] [place]URILLO [place], [place] [address] [facility] [place] [address] MURILLO (ABNORMAL) Glucose, Fasting (04/24/2022 8:03 AM CDT) P athologist Signature Glucose, P 116 (H) 70 - 100 04/24/2022 CN[facility] mg/dL 8:32 AM CDT Last Intake 12 hr 04/24/2022 CNFL 8:05 AM CDT Specimen Anatomical Collection Method Collection Time Receive d Time (Source) Location / / Volume Laterality Blood (Blood, 04/24/2022 8:03 AM 04/24/20 8:05 Venous) CDT AM CDT Angélica Granger P.A.-C. LAB BLOOD NON ADD-ON Performing Organization Address City/State/ZIP Code Phon e Number [facility]- [address] [place] [address] [place] [address] System [address] (ABNORMAL) Comprehensive Metabolic Panel (04/24/2022 8:03 AM CDT) Analysis Performed At Patho logist Time Signature Potassium, P 4.4 3.6 - 5.2 04/24/2022 [facility] mmol/L 8:35 AM CDT Sodium, P 130 (L) 135 - 145 04/24/2022 [facility] mmol/L 8:35 AM CDT Chloride, P 95 (L) 98 - 107 04/24/2022 [facility] mmol/L 8:35 AM CDT Bicarbonate, P 22 22 - 29 04/24/2022 [facility] mmol/L 8:36 AM CDT Anion Gap, P 13 7 - 15 04/24/2022 [facility] 8:35 AM CDT BUN (Blood Urea 36 (H) 8 - 24 04/24/2022 [facility] Nitrogen), P mg/dL 8:36 AM CDT Creatinine 2.97 (H) 0.74 - 04/24/2022 [facility] 1.35 mg/dL 8:36 AM CDT Estimated GFR 22 (L) >=60 04/24/2022 [facility] (eGFR) mL/min/BSA 8:36 AM CDT Comment: Estimated GFR calculated using the 2020 CKD_EPI creatinine equation. Calcium, Total, P 9.3 8.8 - 10.2 mg/dL 04/24/2022 8:36 AM CDT CNFL Glucose, P CANCELED mg/dL 04/24/2022 8:05 AM CDT CNFL Comment: Duplicate test request. Result canceled by the ancillary. Protein, Total, P 6.8 6.3 - 7.9 g/dL 04/24/2022 8:36 A M CDT CNFL Albumin, P 4.2 3.5 - 5.0 g/dL 04/24/2022 8:36 AM CDT C NFL Aspartate Aminotransferase (AST), 18 8 - 48 U/L 04/24 8:36 AM CDT CNFL P Alkaline Phosphatase, P 120 40 - 129 U/L 04/24/2022 8: 36 AM CDT CN[facility] Alanine Aminotransferase (ALT), P 13 7 - 55 U/L 04/24 8:36 AM CDT CNFL Bilirubin, Total, P 0.4 <=1.2 mg/dL 04/24/2022 8:36 AM CDT CNFL Specimen Anatomical Collection Method Collection Time Receive d Time (Source) Location / / Volume Laterality Blood (Blood, 04/24/2022 8:03 AM 04/24/20 8:05 Venous) CDT AM CDT Angélica Granger P.A.-C. LAB BLOOD ADD-ON Performing Organization Address City/State/ZIP Code Phon e Number [address] [address] [place] [address] [address] (ABNORMAL) CBC without Differential (04/24/2022 8:03 AM CDT) [facility] Method Time Signature Hemoglobin 10.2 (L) 13.2 - 04/24/2022 CN[facility] 16.6 g/dL 8:23 AM CDT Hematocrit 31.6 (L) 38.3 - 04/24/2022 CNFL 48.6 % 8:23 AM CDT Erythrocytes 3.15 (L) 4.35 - 04/24/2022 CN[facility] 5.65 8:23 AM CDT x10(12)/L MCV 100.3 (H) 78.2 - 04/24/2022 CN[facility] 97.9 fL 8:23 AM CDT RBC Distrib Width 13.1 11.8 - 04/24/2022 [facility] 14.5 % 8:23 AM CDT Platelet Count 236 135 - 317 04/24/2022 [facility] x10(9)/L 8:23 AM CDT Leukocytes 6.7 3.4 - 9.6 04/24/2022 CNFL x10(9)/L 8:23 AM CDT Specimen Anatomical Collection Method Collection Time Receive d Time (Source) Location / / Volume Laterality Blood (Blood, 04/24/2022 8:03 AM 04/24/20 8:05 Venous) CDT AM CDT Angélica Granger P.A.-C. 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
--- OUTSIDE RECORDS SUMMARY | 2022-05-17 18:16 | XMS_ITS | Encounter Summary ---
:1955 Author Organization [facility] Address [address] [place] [address] Care Team Providers Name Role Phone Elsewhere, Pcp Primary Care Provider Unavailable Reason for Referral Outpatient (Routine) - Authorized Specialty Diagnoses / Procedures Referred By Contact Refer red To Contact Otorhinolaryngology Dex Matta APRN, [facility] C.N.P., M.S.N. [address] [place] [address] Referral ID Status Reason Start Date Expiration Date Visits V isits Requested Authorized [id number] Authorized 04/25/2022 04/24/2025 1 1 Scheduling Instructions Please schedule with Dorene Maradiaga in an es tablished spot for placement of a PE tube Reason for Visit Appointment Request (Routine) - Closed Specialty Diagnoses / Procedures Referred By Contact Refer red To Contact Otorhinolaryngology Diagnoses Follow Up Exam Referral ID Status Reason Start Date Expiration Date Visits Requ ested Visits Authorized [id number] Closed 03/26/2022 03/26/2023 1 1 Encounter Details Date Type Department Care Team Description 04/25/2022 Office Visit Department of Dex Matta Rhinosinusiti s Chronic (Primary Dx); Otorhinolaryngology in [place] Azevedo, Marta Post Nasal; [place], [place] C.N.P., Acute Serous Otitis Media Re current Left [address] [facility] 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 - 04/25/2022 3:45 PM CDT SUBJECTIVE CHIEF COMPLAINT / REASON FOR VISIT Bruce Singh is a 66 y.o. male who presents for evaluation of No chief complaint on file.. HISTORY OF PRESENT ILLNESS is a 66 y.o. male with a history of chronic rhinosinusitis. He presents today for follow-up of chronic rhinosinusitis. Recall he underwent ESS and bilateral inferior turbinate reductions on 07/26/2021 following reports failed medical management and reports of thick drainage, post nasal drip and cough. Following surgery he was initially started on doxycycline 07/26/21 and switched to bactrim (07/30/21)due to culture results following surgery. He messaged in on 08/14 with increase in headaches and nasal drainage. Dr. Starr reached out and discussed with Infections Disease (Dr. Plasencia) the next best steps. He was initiated on a 2 week course of Augmentin and Bactrim along with 3 weeks of Vancomycin to prevent Cdiff. 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 He was most recently seen by Jaxson on 03/22/2022 with reports of worsening sinus pressure over the past 2weeks with sharp frontal headaches and worsening postnasal drainage. On exam he was noted to have yel low/green crusts and purulent drainage in his bilateral maxillary and ethmoid sinuses. A culture wasobtained revealing Staphylococcus and was placed on Augmentin. Today he reports doing well although continues to have thick postnasal drainage and ongoing cough with phlegm production. He endorses breathing well through both sides of his nose and is better than hewas when he was seen by Jaxson in February. He reports he did well with the course of Augmentin it did not have any diarrhea. He continues to rinse his nose with a NeilMed irrigation bottle and does usethe Navage at times as well. He has been rinsing twice daily with budesonide, xylitol and following this with Atrovent using this up to 2 times daily. He is also continued to use Trelegy inhaler and feels this has helped as well. He also reports ongoing fluid and aural fullness in his left ear along with diminished hearing. He also reports ear popping on the right side. The patient's worst symptoms are Cough, Post-nasal discharge, Thick nasal discharge, Ear fullness, Fatigue and the total SNOT-22 score is 58. PRE-OPERATIVE DIAGNOSIS Chronic rhinosinusitis. Nasal airway obstruction. Bilateral inferior turbinate hypertrophy. History of liver transplant on immunosuppression End-stage chronic kidney disease on dialysis therapy POST-OPERATIVE DIAGNOSIS Chronic rhinosinusitis. Nasal airway obstruction. Bilateral inferior turbinate hypertrophy. History of liver transplant on immunosuppression End-stage chronic kidney disease on dialysis therapy PROCEDURE(S) Bilateral submucosal inferior turbinate reduction. Bilateral maxillary antrostomy with tissue removal. Bilateral total ethmoidectomy. Bilateral sphenoidotomy with tissue removal. Bilateral frontal sinusotomy. Extradural computer-assisted navigation Of note, patient underwent creation of a brachiocephalic fistula on 07/24/21 ROS: Patient has no active stridor. Other pertinent ROS are positive as per the HPI OBJECTIVE PHYSICAL EXAM Constitutional: Voice is normal Appears alert and well Otoscopic: Hearing is grossly normal Right: External ear normal TM intact without effusion Left: External ear normal EAC without significant cerumen The right ear canal is excoriated with the bloody cerumen. The TM is intact. The left TM was noted to have fluid as there was a visible air bubble. Nose: The external nose is without significant lesions or masses Cardiovascular: Upper extremities are well perfused Pulmonary/Chest: Respirations have grossly normal rate and effort Neurological: He is alert Facial strength is grossly normal and symmetric Skin: Skin is normal temperature Psychiatric: Affect does not appear appropriate PROCEDURE NOTE: Procedure: Rigid nasal endoscopy Pre-procedure diagnosis: Nasal congestion Post-procedure diagnosis: CRS Indication: Nasal congestion Informed Consent: After explaining the risks, benefits and alternatives of nasal endoscopy, the patient confirmed understanding verbally and did wish to proceed. Findings: After anesthesia and decongestion with topical lidocaine and phenylephrine spray, the nasal cavities were examined with a 30 degree endoscope. The middle turbinates were in good position. Crusts and clear drainage were removed from the middle meatus bilaterally. Yellow, thick drainage was noted in left sphenoid sinus. This was cultured and removed. Large crust removed from the sphenoethmoidrecess bilaterally. The maxillary, sphenoid, and ethmoid sinuses were patent bilaterally. Moderate amount of edema was noted in the frontal sinuses. Granulation tissues was removed with a cups forceps from the bilateral frontal sinuses. Inability to view the outflow tracts although was able to palpatewith a suction. Mucopurulence was noted throughout the inflammatory tissue bilaterally. T The patient tolerated the procedure well and [...] 1, 2) 0 0 TOTAL 1 1 ASSESSMENT / PLAN #1 Chronic Rhinosinusitis #2 Cough #3 Post Nasal Drip and nasal airway obstruction with bilateral inferior turbinate hypertrophy #4 Status post liver transplant #5 Chronic kidney disease on dialysis therapy-brachiocephalic fistula on 07/24/21 #6 Left serous otitis Plan: It was a pleasure to see Mr. Singh in follow up today. He continues to have ongoing drainage and crusting from his nasal cavities although is breathing well out of both sides. He is continued with budesonide, xylitol, and Astelin rinses. He has been using Atrovent nasal spray following his rinses. Continues to endorse some left fullness in his ear and feels his right ear pops in and out. He continues to have diminished hearing in the left side as well. On exam he was noted to have fluid in his left tympanic membrane and was intact. The right ear canalappeared excoriated with bloody cerumen, but the TM was intact. On nasal endoscopy, he was noted to have polypoid inflammation in his bilateral frontal outflow tracts with inability to view the frontalsinus. Thick, yellow drainage was noted in the sphenoethmoid recess along with the left sphenoid. This was cultured. The bilateral maxillary, ethmoid, and sphenoid sinuses were patent. We discussed continuing with his budesonide irrigations and plan for culture directed antibiotics. We will likely place him on a 30 day course of topical antibiotics following the culture results and will plan for follow-up right before the 30 day completion. If at that time he continues to have ongoing crusting and drainage we would extend this another 30 days. We also discussed increasing his Atrovent up to 4 times daily, 2 puffs each nostril. We have also set up a return appointment for him to see Dorene Maradiaga in medical ENT for placement of a left PE tube to help with his ongoing aural fullness. We will reach out and let him know what his culture results reveal as I advised him this may not be until Friday due to the weekend. All of his questions were answered and he is agreeable to plan. eDx Matta APRN, C.Mercedes, M.S.N. documented in 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 [address] [place] [phone] 05/23/2022 Clinical Admitting/Central Communication Scheduling 05/27/2022 Comprehensive Visit Orthopedic Surgery Markus Sams M.D., Ph.D. [address] [place] [phone] 05/29/2022 Office Visit Otorhinolaryngology Dex Matta APRN, C.NJuan Miguel, M.S.N. [address] [place] [phone] 05/29/2022 Office Visit Otorhinolaryngology Nadeem Maradiaga P.A.Marie., M.S. [address] [place] [phone] 05/31/2022 Appointment Radiology Guilherme Matt MPAS, Jennifer., M.S. [address] [place] [phone] 06/05/2022 Appointment Laboratory Medicine Angélica Granger P.A.-C. [address] [place] [phone] 06/19/2022 Appointment Laboratory Medicine Angélica Granger P.A.-C. [address] [place] [phone] 07/03/2022 Appointment Laboratory Medicine Angélica Granger P.A.-C. [address] [place] [phone] 07/17/2022 Appointment Laboratory Medicine Angélica Granger P.A.-C. [address] [place] [phone] 07/31/2022 Appointment Laboratory Medicine Angélica Granger P.A.-C. [address] [place] [phone] 08/14/2022 Appointment Laboratory Medicine Angélica Granger P.A.-C. [address] [place] [phone] 08/28/2022 Appointment Laboratory Medicine Angélica Granger P.A.-C. [address] [place] [phone] Scheduled Referrals Name Type Priority Associated Order Schedule Diagnoses Otorhinolaryngology office Outpatient Routine E xpected: visit (clinic) Referral 04/25/2022 (Approximate), Expires: 07/26/2023 documented as of this encounter Procedures Procedure Name Priority Date/Time Associated Diagnosis Comme nts BACTERIAL CULTURE, Routine 04/25/2022 3:44 PM Rhinosinusitis C hronic Results for this AEROBIC + SUSC CDT procedure are in the results section. documented in this encounter Results (ABNORMAL) Bacterial Culture, Aerobic + Susc (04/25/2022 3:44 PM CDT) [facility] Method Time Signature Bacterial SERRATIA MARCESCENS [...] Number [facility] - [address] [place], [place] [address] [facility] [place] [address] Laboratories-[facility] [address] documented in this encounter Visit Diagnoses Diagnosis Rhinosinusitis Chronic - Primary Drip Post Nasal Acute Serous Otitis Media Recurrent Left documented in this encounter Additional Health Concerns Assessment Noted Time PHQ-9 Depression Total Score: 4 11/28/2020 10:17 AM CD T documented as of this encounter Care Teams Rn Family Relationship Specialty Start Date End Date Elsewhere, Pcp PCP - General Family Medicine 07/29/17 [facility] - Laboratory Medicine 04/12/20 [place] [phone] documented as of this encounter
--- OUTSIDE RECORDS SUMMARY | 2022-05-17 18:16 | XMS_ITS | Encounter Summary ---
:1955 Author Organization [facility] Address [address] [place] [address] Care Team Providers Name Role Phone Elsewhere, Pcp Primary Care Provider Unavailable Encounter Details Date Type Department Care Team Description 04/29/2022 Orders Only Division of Nephrology and Chris Norwood Hypertension in [place], ., D.O. 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 [address] [place] [phone] 05/23/2022 Clinical Admitting/Central Communication Scheduling 05/27/2022 Comprehensive Visit Orthopedic Surgery Markus Sams M.D., Ph.D. [address] [place] [phone] 05/29/2022 Office Visit Otorhinolaryngology Dex Matta APRN, C.N.P., M.S.N. [address] [place] [phone] 05/29/2022 Office Visit Otorhinolaryngology Nadeem Maradiaga, P.A.-C., M.S. [address] [place] [address] [phone] 05/31/2022 Appointment Radiology Guilherme Matt MPAS, PMaryanne., M.S. [address] [place] [address] [phone] 06/05/2022 Appointment Laboratory Medicine Angélica Granger P.A.-C. [address] [place] [address] [phone] 06/19/2022 Appointment Laboratory Medicine Angélica Granger P.A.-C. [address] [place] [phone] 07/03/2022 Appointment Laboratory Medicine Angélica Granger P.A.-C. [address] [place] [phone] 07/17/2022 Appointment Laboratory Medicine Angélica Granger P.A.-C. [address] [place] [phone] 07/31/2022 Appointment Laboratory Medicine Angélica Granger P.A.-C. [address] [place] [phone] 08/14/2022 Appointment Laboratory Medicine Angélica Granger P.A.-C. [address] [place] [phone] 08/28/2022 Appointment Laboratory Medicine Angéilca Granger P.A.-C. [address] [place] [phone] documented as of this encounter Visit Diagnoses Not on filedocumented in this encounter Additional Health Concerns Assessment Noted Time PHQ-9 Depression Total Score: 4 11/28/2020 10:17 AM CD T documented as of this encounter Care Teams Group Counselor Relationship Specialty Start Date End Date Elsewhere, Pcp PCP - General Family Medicine 07/29/17 [facility] - Laboratory Medicine 04/12/[address] [address] documented as of this encounter
--- OUTSIDE RECORDS SUMMARY | 2022-05-17 18:16 | XMS_ITS | Encounter Summary ---
:1955 Author Organization [facility] Address [address] [place] [address] Care Team Providers Name Role Phone Elsewhere, Pcp Primary Care Provider Unavailable Reason for Visit Reason Comments Pre-scheduling Questionnaire Upper Extremity Pre-Sc heduling Questionnaire Encounter Details Date Type Department Care Team Description 04/26/2022 Clinical Department of Prescheduling, Pre-scheduli ng Communication Orthopedic Surgery Provider Question ellen ( in [place], [facility] Pre-Scheduling [address] Questionnaire) [place] [address] Social History Tobacco Use Types Packs/Day Years [...] at Date Recorded 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 [address] [place] [phone] 05/23/2022 Clinical Admitting/Central Communication Scheduling 05/27/2022 Comprehensive Visit Orthopedic Surgery Markus Sams M.D., Ph.D. [address] [place] [phone] 05/29/2022 Office Visit Otorhinolaryngology Dex Matta, RAMONA, C.N.P., M.S.N. [address] [place] [phone] 05/29/2022 Office Visit Otorhinolaryngology Nadeem Maradiaga, P.Murtaza.-Arley., M.S. [address] [place] [address] [phone] 05/31/2022 Appointment Radiology Guilherme Matt MPAS, Jennifer., M.S. [address] [place] [phone] 06/05/2022 Appointment Laboratory Medicine Angélica Granger P.A.-C. [address] [place] [phone] 06/19/2022 Appointment Laboratory Medicine Angélica Granger P.A.-C. [address] [place] [phone] 07/03/2022 Appointment Laboratory Medicine Angélica Granger P.A.-C. [address] [place] [phone] 07/17/2022 Appointment Laboratory Medicine Angélica Granger P.A.-C. [address] [place] [phone] 07/31/2022 Appointment Laboratory Medicine Angélica Granger P.A.-C. [address] [place] [phone] 08/14/2022 Appointment Laboratory Medicine Angélica Granger P.A.-C. [address] [place] [phone] 08/28/2022 Appointment Laboratory Medicine Angélica Granger P.A.-C. [address] [place] [phone] documented as of this encounter Visit Diagnoses Not on filedocumented in this encounter Additional Health Concerns Assessment Noted Time PHQ-9 Depression Total Score: 4 11/28/2020 10:17 AM CD T documented as of this encounter Care Teams Turret Punch Press Operator Relationship Specialty Start Date End Date Elsewhere, Pcp PCP - General Family Medicine 07/29/17 [facility] - Laboratory Medicine 04/12/[address] [address] documented as of this encounter
--- OUTSIDE RECORDS SUMMARY | 2022-05-17 18:16 | XMS_ITS | Encounter Summary ---
:1955 Author Organization [facility] Address [address] [place] [address] Care Team Providers Name Role Phone Elsewhere, Pcp Primary Care Provider Unavailable Reason for Visit Reason Comments Labs Only Encounter Details Date Type Department Care Team Description 03/28/2022 Clinical [address] Gamez [facility] Labs Only Center for R, R.N. 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 - 04/01/2022 4:57 PM CDT Provider who reviewed results: Dr Wan Recommendations: Increase tacrolimus to 1 mg BID Labs are due 1 week Patient Online Services message was initiated by a [facility] Registered Nurse for report of test [...] R.N. *All labs are now found in [employer] - Lab - Flowsheets. For further review of labs, please review there or under Synopsis* documented in 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 [address] [place] [phone] 05/23/2022 Clinical Admitting/Central Communication Scheduling 05/27/2022 Comprehensive Visit Orthopedic Surgery Markus Sams M.D., Ph.D. [address] [place] [phone] 05/29/2022 Office Visit Otorhinolaryngology Dex Matta APRN, C.N.P., M.S.N. [address] [place] [phone] 05/29/2022 Office Visit Otorhinolaryngology Nadeem Maradiaga PEdgar.-Arley., M.S. [address] [place] [address] [phone] 05/31/2022 Appointment Radiology Guilherme Matt MPAS, Jennifer., M.S. [address] [place] [address] [phone] 06/05/2022 Appointment Laboratory Medicine Angélica Granger P.A.-C. [address] [place] [address] [phone] 06/19/2022 Appointment Laboratory Medicine Angélica Granger P.A.-C. [address] [place] [phone] 07/03/2022 Appointment Laboratory Medicine Angélica Granger P.A.-C. [address] [place] [phone] 07/17/2022 Appointment Laboratory Medicine Angélica Granger P.A.-C. [address] [place] [phone] 07/31/2022 Appointment Laboratory Medicine Angélica Granger P.A.-C. [address] [place] [phone] 08/14/2022 Appointment Laboratory Medicine Angélica Granger P.A.-C. [address] [place] [phone] 08/28/2022 Appointment Laboratory Medicine Angélica Granger P.A.-C. [address] [place] [phone] documented as of this encounter Visit Diagnoses Diagnosis Transplant Liver (HCC) Medication Therapy Resource Teacher Not Anticoa gulant documented in this encounter Additional Health Concerns Assessment Noted Time PHQ-9 Depression Total Score: 4 11/28/2020 10:17 AM CD T documented as of this encounter Care Teams Furnishings Conservator Relationship Specialty Start Date End Date Elsewhere, Pcp PCP - General Family Medicine 07/29/17 [facility] - Laboratory Medicine 04/12/[address] [address] documented as of this encounter
--- OUTSIDE RECORDS SUMMARY | 2022-05-17 18:17 | XMS_ITS | Encounter Summary ---
:1955 Author Organization [facility] Address [address] [place] [address] Care Team Providers Name Role Phone Elsewhere, Pcp Primary Care Provider Unavailable Encounter Details Date Type Department Care Team Description 03/27/2022 Hospital Encounter Department of Angélica Granger ant Liver (HCC); Laboratory Medicine J PDemetriusADurgaC. 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 isavuconazonium Take 2 capsules 180 capsule 0 01/21/2022 (CRESEMBA) 186 mg (372 mg total) by capsule mouth daily. mycophenolate (CELLCEPT) Take 2 capsules 360 capsule 3 02/1504/22/2022 250 mg (500 mg total) by capsuleIndications: mouth 2 (two) times Transplant Liver (HCC), a day. Do not Infection break, cut, or open Cytomegalovirus (HCC), capsules. Medication Therapy Halfway Not Anticoagulant NIFEdipine XL (PROCARDIA Take 60 mg by mouth 0 04/29/2022 XL) 30 mg 24 hr tablet daily. tacrolimus (PROGRAF) 0.5 Take 1 capsule (0.5 180 capsule 3 0 03/15/2022 04/01/2022 mg capsuleIndications: mg total) by mouth Transplant Liver (HCC), every 12 (twelve) Medication Therapy Long hours. Term Not Anticoagulant documented as of 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 [address] [place] [phone] 05/23/2022 Clinical Admitting/Central Communication Scheduling 05/27/2022 Comprehensive Visit Orthopedic Surgery Markus Sams M.D., Ph.D. [address] [place] [phone] 05/29/2022 Office Visit Otorhinolaryngology Dex Matta APRN, C.N.P., M.S.N. [address] [place] [phone] 05/29/2022 Office Visit Otorhinolaryngology Nadeem Maradiaga, PMaryanne., M.S. [address] [place] [phone] 05/31/2022 Appointment Radiology Guilherme Matt, RASTA, PAdilia, M.S. [address] [place] [phone] 06/05/2022 Appointment Laboratory Medicine Angélica Granger P.A.-C. [address] [place] [phone] 06/19/2022 Appointment Laboratory Medicine Angélica Granger P.A.-C. [address] [place] [phone] 07/03/2022 Appointment Laboratory Medicine Angélica Granger P.A.-C. [address] [place] [phone] 07/17/2022 Appointment Laboratory Medicine Angélica Granger P.A.-C. [address] [place] [phone] 07/31/2022 Appointment Laboratory Medicine Angélica Granger P.A.-C. [address] [place] [phone] 08/14/2022 Appointment Laboratory Medicine Angélica Granger P.A.-C. [address] [place] [phone] 08/28/2022 Appointment Laboratory Medicine Angélica Granger P.A.-C. [address] [place] [phone] documented as of this encounter Procedures Procedure Name Priority Date/Time Associated Diagnosis Comme nts CMV DNA DETECT/QUANT, Routine 03/27/2022 8:12 Transplant Liver Results for this P AM CDT (HCC) procedure are in Medication Therapy the resul ts Motor Runner Not section. Anticoagulant TACROLIMUS LEVEL, B Routine 03/27/2022 8:12 Transplant Liver R esults for this AM CDT (HCC) procedure are in Medication Therapy the resul ts Halfway Not section. Anticoagulant CBC WITHOUT Routine 03/27/2022 8:12 Transplant Liver Results for this DIFFERENTIAL, B AM CDT (HCC) procedure are in Medication Therapy the resul ts Halfway Not section. Anticoagulant GLUCOSE, FASTING, S/P Routine 03/27/2022 8:12 Transplant Liver Results for this AM CDT (HCC) procedure are in Medication Therapy the resul ts Halfway Not section. Anticoagulant COMPREHENSIVE Routine 03/27/2022 8:12 Transplant Liver Results for this METABOLIC PANEL, S/P AM CDT (HCC) procedure are in Medication Therapy the resul ts Halfway Not section. Anticoagulant documented in this encounter Results (ABNORMAL) Tacrolimus, B (03/27/2022 8:12 AM CDT) athologist Signature Tacrolimus, B [...] and its performa nce characteristics determined by [facility] in a manner consistent with CLIA requirements. This test has not been cleared or approved by the U.S. Mer d and Drug Administration. Specimen Anatomical Collection Method Collection Time Receive d Time (Source) Location / / Volume Laterality Blood (Blood, 03/27/2022 8:12 AM 03/28/20 22 7:31 Venous) CDT AM CDT Angélica Granger P.A.-C. LAB BLOOD NON ADD-ON Performing Organization Address [facility] Phon e Number [address] [place]URILLO [place] [address] MURILLO CMV DNA Detect / Quant, Plasma (03/27/2022 8:12 AM CDT) [facility] Method Time Signature CMV DNA Undetected Undetected 03/28/2022 [facility] Detect/Quant, IU/mL 2:45 PM CDT P Comment: Result in log IU/mL is Undetected. ----ADDITIONAL INFORMATION---- The quantification range of this assay i s 35 to 10,000,000 IU/mL (1.54 log to 7.00 log IU/mL). Testing was performed u sing the tika CMV test ([employer] with the tika [id number] System. Specimen Anatomical Collection Method Collection Time Receive d Time (Source) Location / / Volume Laterality Blood (Blood, 03/27/2022 8:12 AM 03/28/20 22 7:07 Venous) CDT AM CDT Angélica Granger P.A.-C. LAB MICROBIOLOGY - BLOOD ORD ERABLES Performing Organization Address [facility] Phon e Number [address] [place], [place] [address] [address] MURILLO (ABNORMAL) Glucose, Fasting (03/27/2022 8:12 [...] Organization Address City/State/ZIP Code Phon e Number [phone] [place] [address] [place] [address] System in [address] (ABNORMAL) Comprehensive Metabolic Panel (03/27/2022 8:12 [...] Phon e Number [facility]- [address] [place] [phone] [place] [address] System in [address] (ABNORMAL) CBC without Differential (03/27/2022 8:12 AM CDT) [facility] Method Time Signature Hemoglobin 10.6 (L) [...] P.A.-C. LAB BLOOD ADD-ON Performing Organization Address City/State/[facility] Code Phon e Number [facility]- [address] [place] [phone] [place] [address] [address] documented in this encounter Visit Diagnoses Diagnosis Transplant Liver (HCC) Medication Therapy Halfway Not Anticoa gulant documented in this encounter Additional Health Concerns Assessment Noted Time PHQ-9 Depression Total Score: 4 11/28/2020 10:17 AM CD T documented as of this encounter Care Teams Superintendent Service Relationship Specialty Start Date End Date Elsewhere, Pcp PCP - General Family Medicine 07/29/17 [facility] - Laboratory Medicine 04/12/[address] [address] documented as of this encounter
--- OUTSIDE RECORDS SUMMARY | 2022-05-17 18:17 | XMS_ITS | Encounter Summary ---
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 [address] [place] [phone] 05/23/2022 Clinical Admitting/Central Communication Scheduling 05/27/2022 Comprehensive Visit Orthopedic Surgery Markus Sams M.D., Ph.D. [address] [place] [phone] 05/29/2022 Office Visit Otorhinolaryngology Dex Matta APRN, C.N.P., M.S.N. [address] [place] [phone] 05/29/2022 Office Visit Otorhinolaryngology Nadeem Maradiaga, P.A.-C., M.S. [address] [place] [address] [phone] 05/31/2022 Appointment Radiology Guilherme Matt MPAS, PEdgar.Marie., M.S. [address] [place] [address] [phone] 06/05/2022 Appointment Laboratory Medicine Angélica Granger P.A.-C. [address] [place] [phone] 06/19/2022 Appointment Laboratory Medicine Angélica Granger P.A.-C. [address] [place] [phone] 07/03/2022 Appointment Laboratory Medicine Angélica Granger P.A.-C. [address] [place] [phone] 07/17/2022 Appointment Laboratory Medicine Angélica Granger P.A.-C. [address] [place] [phone] 07/31/2022 Appointment Laboratory Medicine Angélica Granger P.A.-C. [address] [place] [phone] 08/14/2022 Appointment Laboratory Medicine Angélica Granger P.A.-C. [address] [place] [phone] 08/28/2022 Appointment Laboratory Medicine Angélica Granger P.A.-C. [address] [place] [phone] documented as of this encounter Visit Diagnoses Not on filedocumented in this encounter Additional Health Concerns Assessment Noted Time PHQ-9 Depression Total Score: 4 11/28/2020 10:17 AM CD T documented as of this encounter Care Teams Children'S Minister Relationship Specialty Start Date End Date Elsewhere, Pcp PCP - General Family Medicine 07/29/17 [facility] - Laboratory Medicine 04/12/[address] [address] documented as of this encounter
--- OUTSIDE RECORDS SUMMARY | 2022-05-17 18:17 | XMS_ITS | Encounter Summary ---
:1955 Author Organization [facility] Address [address] [place] [address] Care Team Providers Name Role Phone Elsewhere, Pcp Primary Care Provider Unavailable Reason for Referral MRI/CAT/PET Scan (Routine) - Closed Specialty Diagnoses / Procedures Referred By Contact Refer red To Contact Radiology Diagnoses Pneumonia Fungal Chronic Obstructive Pulmonary Disease Without Exacerbation (HCC) Lung Interstitial Disease (HCC) Trung Plasencia P.A.-C., [facility] Procedures CT Chest without IV Contrast M.S. 200 [place] [address] Referral ID Status Reason Start Date Expiration Date Visits Requ ested Visits Authorized [id number] Closed 03/13/2022 03/13/2023 1 1 Reason for Visit MRI/CAT/PET Scan (Routine) - Closed Specialty Diagnoses / Procedures Referred By Contact Refer red To Contact Radiology Diagnoses Pneumonia Fungal Chronic Obstructive Pulmonary Disease Without Exacerbation (HCC) Lung Interstitial Disease (HCC) Trung Plasencia P.A.-C., [facility] Procedures CT Chest without IV Contrast M.S. [address] [place], [place] [phone] Referral ID Status Reason Start Date Expiration Date Visits Requ ested Visits Authorized [id number] Closed 03/13/2022 03/13/2023 1 1 Encounter Details Date Type Department Care Team Description 03/13/2022 Hospital Encounter Department of Trung Plasencia Fungal; Radiology, Kd Stern P.A.-C., Chronic Obs tructive Pulmonary Disease Without Exacerbation (HCC); Building, in M.S. 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 valGANciclovir (VALCYTE) Take 1 tablet (450 45 tablet 0 12/202103/27/2022 450 mg mg total) by mouth tabletIndications: every other day. Transplant Liver (HCC), take every 48 hours Medication Therapy Long after dialysis Term Not Anticoagulant, Infection Cytomegalovirus (HCC) mycophenolate (CELLCEPT) Take 2 capsules 360 capsule 3 02/1504/22/2022 250 mg (500 mg total) by capsuleIndications: mouth 2 (two) times Transplant Liver (HCC), a day. Do not Infection break, cut, or open Cytomegalovirus (HCC), capsules. Medication Therapy Mcc Not Anticoagulant NIFEdipine XL (PROCARDIA Take 60 mg by mouth 0 04/29/2022 XL) 30 mg 24 hr tablet daily. tacrolimus (PROGRAF) 0.5 Take 1 capsule (0.5 90 capsule 3 03/15/2022 mg capsuleIndications: mg total) by mouth Transplant Liver (HCC), daily. Medication Therapy Physicist Astrophysics Not Anticoagulant documented as of 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 [address] [place] [phone] 05/23/2022 Clinical Admitting/Central Communication Scheduling 05/27/2022 Comprehensive Visit Orthopedic Surgery Markus Sams M.D., Ph.D. [address] [place] [phone] 05/29/2022 Office Visit Otorhinolaryngology Dex Matta APRN, C.N.P., M.S.N. [address] [place] [phone] 05/29/2022 Office Visit Otorhinolaryngology Nadeem Maradiaga P.A.-C., M.S. [address] [place] [phone] 05/31/2022 Appointment Radiology Guilherme Matt MPAS, P.A.-C., M.S. [address] [place] [phone] 06/05/2022 Appointment Laboratory Medicine Angélica Granger P.A.-C. [address] [place] [phone] 06/19/2022 Appointment Laboratory Medicine Angélica Granger P.A.-C. [address] [place] [phone] 07/03/2022 Appointment Laboratory Medicine Angélica Granger P.A.-C. [address] [place] [phone] 07/17/2022 Appointment Laboratory Medicine Angélica Granger P.A.-C. [address] [place] [phone] 07/31/2022 Appointment Laboratory Medicine Angélica Granger P.A.-C. [address] [place] [phone] 08/14/2022 Appointment Laboratory Medicine Angélica Granger P.A.-C. [address] [place] [phone] 08/28/2022 Appointment Laboratory Medicine Angélica Granger P.A.-C. [address] [place] [phone] documented as of this encounter Procedures Procedure [...] Diagnosis Pneumonia Fungal Chronic Obstructive Pulmonary Disease [facility] Exacerbation (HCC) Lung Interstitial Disease (HCC) documented in this encounter Additional Health Concerns Assessment Noted Time PHQ-9 Depression Total Score: 4 11/28/2020 10:17 AM CD T documented as of this encounter Care Teams Guide Domestic Tour Relationship Specialty Start Date End Date Elsewhere, Pcp PCP - General Family Medicine 07/29/17 [facility] - Laboratory Medicine 04/12/20 [place] [address] documented as of this encounter
--- OUTSIDE RECORDS SUMMARY | 2022-05-17 18:17 | XMS_ITS | Encounter Summary ---
:1955 Author Organization [facility] Address [address] [place] [address] Care Team Providers Name Role Phone Elsewhere, Pcp Primary Care Provider Unavailable Encounter Details Date Type Department Care Team Description 03/15/2022 Clinical Communication Department of Prescheduling, Orthopedic Surgery in [place], [place] [address] [place] [address] Social History Tobacco Use Types Packs/Day Years [...] or the highest technical, or vocational p chreiram degree you have received? 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 [address] [place] [phone] 05/23/2022 Clinical Admitting/Central Communication Scheduling 05/27/2022 Comprehensive Visit Orthopedic Surgery Markus Sams M.D., Ph.D. [address] [place] [phone] 05/29/2022 Office Visit Otorhinolaryngology Dex Matta APRN, C.N.P., M.S.N. [address] [place] [phone] 05/29/2022 Office Visit Otorhinolaryngology Nadeem Maradiaga, P.Murtaza.-C., M.S. [address] [place] [phone] 05/31/2022 Appointment Radiology Guilherme Matt, RASTA, PEdgar.Marie., M.S. [address] [place] [phone] 06/05/2022 Appointment Laboratory Medicine Angélica Granger P.A.-C. [address] [place] [phone] 06/19/2022 Appointment Laboratory Medicine Angélica Granger P.A.-C. [address] [place] [phone] 07/03/2022 Appointment Laboratory Medicine Angélica Granger P.A.-C. [address] [place] [phone] 07/17/2022 Appointment Laboratory Medicine Angélica Granger P.A.-C. [address] [place] [phone] 07/31/2022 Appointment Laboratory Medicine Angélica Granger P.A.-C. [address] [place] [phone] 08/14/2022 Appointment Laboratory Medicine Angélica Granger P.A.-C. [address] [place] [phone] 08/28/2022 Appointment Laboratory Medicine Angélica Granger P.A.-C. [address] [place] [phone] documented as of this encounter Visit Diagnoses Not on filedocumented in this encounter Additional Health Concerns Assessment Noted Time PHQ-9 Depression Total Score: 4 11/28/2020 10:17 AM CD T documented as of this encounter Care Teams Lithographic Photographer Apprentice Relationship Specialty Start Date End Date Elsewhere, Pcp PCP - General Family Medicine 07/29/17 [facility] - Laboratory Medicine 04/12/[address] [address] documented as of this encounter
--- OUTSIDE RECORDS SUMMARY | 2022-05-17 18:17 | XMS_ITS | Encounter Summary ---
:1955 Author Organization [facility] Address [address] [place] [address] Care Team Providers Name Role Phone Elsewhere, Pcp Primary Care Provider Unavailable Reason for Visit Reason Comments Med Refill Azelastine Encounter Details Date Type Department Care Team Description 03/19/2022 Clinical Department of Jean Med Refill Communication Otorhinolaryngology in [place] Cole (Aze lastine) [place], [place] S[place] [address] [facility] [address] [place] [phone] [place] [address] Social History Tobacco Use Types Packs/Day Years [...] Date Recorded 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 Medication: Pharmacy: [facility]) [phone] Please e-prescribe if possible. If not possible please bring paper copy to psychiatric secretary to fax. Thank you. Kecia documented in 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 [address] [place] [phone] 05/23/2022 Clinical Admitting/Central Communication Scheduling 05/27/2022 Comprehensive Visit Orthopedic Surgery Markus Sams M.D., Ph.D. [address] [place] [phone] 05/29/2022 Office Visit Otorhinolaryngology Dex Matta APRN, C.N.P., M.S.N. [address] [place] [phone] 05/29/2022 Office Visit Otorhinolaryngology Nadeem Maradiaga, PMaryanne., M.S. [address] [place] [phone] 05/31/2022 Appointment Radiology Guilherme Matt, RASTA, Jennifer., M.S. [address] [place] [phone] 06/05/2022 Appointment Laboratory Medicine Angélica Granger P.A.-C. [address] [place] [phone] 06/19/2022 Appointment Laboratory Medicine Angélica Granger P.A.-C. [address] [place] [phone] 07/03/2022 Appointment Laboratory Medicine Angélica Granger P.A.-C. [address] [place] [phone] 07/17/2022 Appointment Laboratory Medicine Angélica Granger P.A.-C. [address] [place] [phone] 07/31/2022 Appointment Laboratory Medicine Angélica Granger P.A.-C. [address] [place] [phone] 08/14/2022 Appointment Laboratory Medicine Angélica Granger P.A.-C. [address] [place] [phone] 08/28/2022 Appointment Laboratory Medicine Angélica Granger P.A.-C. [address] [place] [phone] documented as of this encounter Visit Diagnoses Not on filedocumented in this encounter Additional Health Concerns Assessment Noted Time PHQ-9 Depression Total Score: 4 11/28/2020 10:17 AM CD T documented as of this encounter Care Teams Water Quality Control Engineer Relationship Specialty Start Date End Date Elsewhere, Pcp PCP - General Family Medicine 07/29/17 [facility] - Laboratory Medicine 04/12/[address] [address] documented as of this encounter
--- OUTSIDE RECORDS SUMMARY | 2022-05-17 18:17 | XMS_ITS | Encounter Summary ---
:1955 Author Organization [facility] Address [address] [place] [address] Care Team Providers Name Role Phone Elsewhere, Pcp Primary Care Provider Unavailable Reason for Visit Outpatient (Routine) - Closed Specialty Diagnoses / Procedures Referred By Contact Refer red To Contact Otorhinolaryngology Toro Pena M.D . [facility] 200 [place] [address] Referral ID Status Reason Start Date Expiration Date Visits Requ ested Visits Authorized [id number] Closed 08/28/2021 08/28/2022 1 1 Encounter Details Date Type Department Care Team Description 03/22/2022 Office Visit Department of Jaxson Churchill Sinusitis Recu rrent (Primary Dx); Otorhinolaryngology in D, P.A.-C., Chron ic Cough; [place], [place] M.S., M.P.H. Drip Post Nasal; [address] 200 [facility] [place] [address] [place], [place] [phone] Social History Tobacco Use Types Packs/Day Years [...] organizations such as oriental orthodox groups, unions, [employer] or athletic groups, or school groups? How [...] technical, or vocational p [facility] degree you have received? 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 [address] [place] [phone] 05/23/2022 Clinical Admitting/Central Communication Scheduling 05/27/2022 Comprehensive Visit Orthopedic Surgery Markus Sams M.D., Ph.D. [address] [place] [phone] 05/29/2022 Office Visit Otorhinolaryngology Dex Matta APRN, C.N.P., M.S.N. [address] [place] [phone] 05/29/2022 Office Visit Otorhinolaryngology Nadeem Maradiaga, Jennifer., M.S. [address] [place] [phone] 05/31/2022 Appointment Radiology Guilherme Matt MPAS, PMaryanne., M.S. [address] [place] [phone] 06/05/2022 Appointment Laboratory Medicine Angélica Granger P.A.-C. [address] [place] [phone] 06/19/2022 Appointment Laboratory Medicine Angélica Granger P.A.-C. [address] [place] [phone] 07/03/2022 Appointment Laboratory Medicine Angélica Granger P.A.-C. [address] [place] [phone] 07/17/2022 Appointment Laboratory Medicine Angélica Granger P.A.-C. [address] [place] [phone] 07/31/2022 Appointment Laboratory Medicine Angélica Granger P.A.-C. [address] [place] [phone] 08/14/2022 Appointment Laboratory Medicine [place] Angélica Stern P.A.-C. [address] [place] [phone] 08/28/2022 Appointment Laboratory Medicine Angélica Granger P.A.-C. [address] [place] [phone] documented as of this encounter Procedures Procedure Name Priority Date/Time Associated Diagnosis Comme nts BACTERIAL CULTURE, Routine 03/22/2022 8:13 AM Sinusitis Recurr ent Results for this AEROBIC + SUSC CDT procedure are in the results section. documented in this encounter Results (ABNORMAL) Bacterial Culture, Aerobic + Susc (03/22/2022 8:13 AM CDT) Component Value Ref Test Analysis Performed At [facility] Range Method Time Signature Bacterial STAPHYLOCOCCUS [...] [facility] [address] [place], [place] [address] [facility] [place] [address] [facility] [facility] [address] documented in this encounter Visit Diagnoses Diagnosis Sinusitis Recurrent - Primary Chronic Cough Drip Post Nasal Headache Daily documented in this encounter Additional Health Concerns Assessment Noted Time PHQ-9 Depression Total Score: 4 11/28/2020 10:17 AM CD T documented as of this encounter Care Teams Veneer Repairer Machine Relationship Specialty Start Date End Date Elsewhere, Pcp PCP - General Family Medicine 07/29/17 [facility] - Laboratory Medicine 04/12/[address] [address] documented as of this encounter
--- OUTSIDE RECORDS SUMMARY | 2022-05-17 18:17 | XMS_ITS | Encounter Summary ---
:1955 Author Organization [facility] Address [address] [place] [address] Care Team Providers Name Role Phone Elsewhere, Pcp Primary Care Provider Unavailable Reason for Referral Outpatient (Routine) - Closed Specialty Diagnoses / Procedures Referred By Contact Refer red To Contact Diagnoses Pain Right Ankle And Joints Right Foot Jeremie Rose M.D. [facility] Procedures DX Foot Ankle Right 3+ Views [address] [place] [phone] Referral ID Status Reason Start Date Expiration Date Visits Requ ested Visits Authorized [id number] Closed 03/21/2022 03/21/2023 1 1 Reason for Visit Reason Comments Pre-visit Testing Orders Encounter Details Date Type Department Care Team Description 03/20/2022 Clinical Communication Department of [facility] Pre- visit Testing Orthopedic Surgery Angela Soliman Orders in [place], [address] [place] [address] [place] [phone] [place], [place] [phone] (Work) [phone] Social History Tobacco Use Types Packs/Day Years [...] or the highest technical, or vocational p REES46ram degree you have received? 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 Thank you. documented in 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 [address] [place] [phone] 05/23/2022 Clinical Admitting/Central Communication Scheduling 05/27/2022 Comprehensive Visit Orthopedic Surgery Markus Sams M.D., Ph.D. [address] [place] [phone] 05/29/2022 Office Visit Otorhinolaryngology Dex Matta APRN, C.N.P., M.S.N. [address] [place] [phone] 05/29/2022 Office Visit Otorhinolaryngology Nadeem Maradiaga P.A.-C., M.S. [address] [place] [phone] 05/31/2022 Appointment Radiology Guilherme Matt MPAS, Edmundo, M.S. [address] [place] [phone] 06/05/2022 Appointment Laboratory Medicine Angélica Granger P.A.-C. [address] [place] [phone] 06/19/2022 Appointment Laboratory Medicine Angélica Granger P.A.-C. [address] [place] [phone] 07/03/2022 Appointment Laboratory Medicine Angélica Granger P.A.-C. [address] [place] [phone] 07/17/2022 Appointment Laboratory Medicine Angélica Granger P.A.-C. [address] [place] [phone] 07/31/2022 Appointment Laboratory Medicine Angélica Granger P.A.-C. [address] [place] [phone] 08/14/2022 Appointment Laboratory Medicine Angélica Granger P.A.-C. [address] [place] [phone] 08/28/2022 Appointment Laboratory Medicine Angélica Granger P.A.-C. [address] [place] [phone] documented as of this encounter Results DX Foot Ankle Right 3+ Views (05/10/2022 7:41 AM E COMMERCE SOLUTION ARCHITECT) Anatomical Region Laterality Modality Lower Extremity, Foot, Ankle, Musculoskeletal RST LOS, Right Digital Radiography Musculoskeletal ARZ LOS, Muskuloskeletal FLA LOS Specimen (Source) Anatomical Collection Method Collection Time Re ceived Time Location / / Volume Laterality 05/10/2022 8:03 AM E COMMERCE SOLUTION ARCHITECT Impressions 05/10/2022 8:06 AM E COMMERCE SOLUTION ARCHITECT Demineralization. Marked pes planus and hindfoot valgus. Scattered degenerative changes about the foot and ankle which are not s ubstantially changed from the most recent prior exam, though, have progressed since 2019. Plan tar calcaneal spur. Healed left ankle fracture deformity. Ad vanced degenerative changes of the visualized left ankle and foot. Vascular calcifications. Narrative 05/10/2022 8:06 AM E COMMERCE SOLUTION ARCHITECT EXAM: ??DX FOOT ANKLE RIGHT 3+ VIEWS [...] of this encounter Care Teams Front Desk Officer Relationship Specialty Start Date End Date Elsewhere, Pcp PCP - General Family Medicine 07/29/17 [facility] - Laboratory Medicine 04/12/20 [place] [address] documented as of this encounter
--- OUTSIDE RECORDS SUMMARY | 2022-05-17 18:17 | XMS_ITS | Encounter Summary ---
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 [address] [place] [phone] 05/23/2022 Clinical Admitting/Central Communication Scheduling 05/27/2022 Comprehensive Visit Orthopedic Surgery Markus Sams M.D., Ph.D. [address] [place] [phone] 05/29/2022 Office Visit Otorhinolaryngology Dex Matta APRN, C.N.P., M.S.N. [address] [place] [phone] 05/29/2022 Office Visit Otorhinolaryngology Nadeem Maradiaga, P.A.-C., M.S. [address] [place] [phone] 05/31/2022 Appointment Radiology Guilherme Matt MPAS, P.Murtaza.-Arley., M.S. [address] [place] [phone] 06/05/2022 Appointment Laboratory Medicine Angélica Granger P.A.-C. [address] [place] [phone] 06/19/2022 Appointment Laboratory Medicine Angélica Granger P.A.-C. [address] [place] [phone] 07/03/2022 Appointment Laboratory Medicine Angélica Granger P.A.-C. [address] [place] [phone] 07/17/2022 Appointment Laboratory Medicine Angélica Granger P.A.-C. [address] [place] [phone] 07/31/2022 Appointment Laboratory Medicine Angélica Granger P.A.-C. [address] [place] [phone] 08/14/2022 Appointment Laboratory Medicine Angélica Granger P.A.-C. [address] [place] [phone] 08/28/2022 Appointment Laboratory Medicine Angélica Granger P.A.-C. [address] [place] [phone] documented as of this encounter Procedures Procedure [...] documented as of this encounter Care Teams Meat Pumper Relationship Specialty Start Date End Date Elsewhere, Pcp PCP - General Family Medicine 07/29/17 [facility] - Laboratory Medicine 04/12/[address] [address] documented as of this encounter
--- OUTSIDE RECORDS SUMMARY | 2022-05-17 18:17 | XMS_ITS | Encounter Summary ---
:1955 Author Organization [facility] Address [address] [place] [address] Care Team Providers Name Role Phone Elsewhere, Pcp Primary Care Provider Unavailable Reason for Visit Reason Comments Txp Tacrolimus Adjustment Protocol - Liver Encounter Details Date Type Department Care Team Description 03/21/2022 Clinical Curt Corral Txp [facility] Communication Center for hLilia, Adjustment Transplantation and RDemetriusNDemetrius, Protocol - Liver Clinical Regeneration C.C.T.C. in 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 [address] [place] [phone] 05/23/2022 Clinical Admitting/Central Communication Scheduling 05/27/2022 Comprehensive Visit Orthopedic Surgery Markus Sams M.D., Ph.D. [address] [place] [phone] 05/29/2022 Office Visit Otorhinolaryngology Dex Matta APRN, C.NDemetriusP., M.S.N. [address] [place] [phone] 05/29/2022 Office Visit Otorhinolaryngology Nadeem Maradiaga P.A.-C., M.S. [address] [place] [phone] 05/31/2022 Appointment Radiology Guilherme Matt, RASTA, Edmundo, M.S. [address] [place] [phone] 06/05/2022 Appointment Laboratory Medicine Angélica Granger P.A.-C. [address] [place] [phone] 06/19/2022 Appointment Laboratory Medicine Angélica Granger P.A.-C. [address] [place] [phone] 07/03/2022 Appointment Laboratory Medicine Angélica Granger P.A.-C. [address] [place] [phone] 07/17/2022 Appointment Laboratory Medicine Angélica Granger P.A.-C. [address] [place] [phone] 07/31/2022 Appointment Laboratory Medicine Angélica Granger P.A.-C. [address] [place] [phone] 08/14/2022 Appointment Laboratory Medicine Angélica Granger P.A.-C. [address] [place] [phone] 08/28/2022 Appointment Laboratory Medicine Angélica Granger P.A.-C. [address] [place] [address] [phone] documented as of this encounter Visit Diagnoses Not on filedocumented in this encounter Additional Health Concerns Assessment Noted Time PHQ-9 Depression Total Score: 4 11/28/2020 10:17 AM CD T documented as of this encounter Care Teams Director Network Development Relationship Specialty Start Date End Date Elsewhere, Pcp PCP - General Family Medicine 07/29/17 [facility] - Laboratory Medicine 04/12/[address] [address] documented as of this encounter
--- OUTSIDE RECORDS SUMMARY | 2022-05-17 18:17 | XMS_ITS | Encounter Summary ---
:1955 Author Organization [facility] Address [address] [place] [address] Care Team Providers Name Role Phone Elsewhere, Pcp Primary Care Provider Unavailable Reason for Visit Reason Comments Med Refill Encounter Details Date Type Department Care Team Description 03/15/2022 Refill Curt Anju [facility] for Bird, Edmond Azevedo, RDemetriusNDemetrius, Med Refill Transplantation and Clinical C.C .T.C. 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 [address] [place] [phone] 05/23/2022 Clinical Admitting/Central Communication Scheduling 05/27/2022 Comprehensive Visit Orthopedic Surgery Markus Sams M.D., Ph.D. [address] [place] [address] [phone] 05/29/2022 Office Visit Otorhinolaryngology Dex Matta APRN, C.N.P., M.S.N. [address] [place] [phone] 05/29/2022 Office Visit Otorhinolaryngology Nadeem Maradiaga, P.A.-C., M.S. [address] [place] [address] [phone] 05/31/2022 Appointment Radiology Guilherme Matt MPAS, PMaryanne., M.S. [address] [place] [address] [phone] 06/05/2022 Appointment Laboratory Medicine Angélica Granger P.A.-C. [address] [place] [address] [phone] 06/19/2022 Appointment Laboratory Medicine Angélica Granger P.A.-C. [address] [place] [phone] 07/03/2022 Appointment Laboratory Medicine Angélica Granger P.A.-C. [address] [place] [phone] 07/17/2022 Appointment Laboratory Medicine Angélica Granger P.A.-C. [address] [place] [phone] 07/31/2022 Appointment Laboratory Medicine Angélica Granger P.A.-C. [address] [place] [phone] 08/14/2022 Appointment Laboratory Medicine Angélica Granger P.A.-C. [address] [place] [phone] 08/28/2022 Appointment Laboratory Medicine Angélica Granger P.A.-C. [address] [place] [phone] documented as of this encounter Visit Diagnoses Diagnosis Transplant Liver (HCC) Medication Therapy Clinical Program Consultant Not Anticoa gulant documented in this encounter Additional Health Concerns Assessment Noted Time PHQ-9 Depression Total Score: 4 11/28/2020 10:17 AM CD T documented as of this encounter Care Teams Installer Molding And Trim Relationship Specialty Start Date End Date Elsewhere, Pcp PCP - General Family Medicine 07/29/17 [facility] - Laboratory Medicine 04/12/20 [place] [address] documented as of this encounter
--- OUTSIDE RECORDS SUMMARY | 2022-05-17 18:17 | XMS_ITS | Encounter Summary ---
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 [address] [place] [phone] 05/23/2022 Clinical Admitting/Central Communication Scheduling 05/27/2022 Comprehensive Visit Orthopedic Surgery Markus Sams M.D., Ph.D. [address] [place] [phone] 05/29/2022 Office Visit Otorhinolaryngology Dex Matta APRN, C.N.P., M.S.N. [address] [place] [phone] 05/29/2022 Office Visit Otorhinolaryngology Nadeem Maradiaga, P.A.-C., M.S. [address] [place] [address] [phone] 05/31/2022 Appointment Radiology Guilherme Matt MPAS, PEdgar.Marie., M.S. [address] [place] [phone] 06/05/2022 Appointment Laboratory Medicine Angélica Granger P.A.-C. [address] [place] [phone] 06/19/2022 Appointment Laboratory Medicine Angélica Granger P.A.-C. [address] [place] [phone] 07/03/2022 Appointment Laboratory Medicine Angélica Granger P.A.-C. [address] [place] [phone] 07/17/2022 Appointment Laboratory Medicine Angélica Granger P.A.-C. [address] [place] [phone] 07/31/2022 Appointment Laboratory Medicine Angélica Granger P.A.-C. [address] [place] [phone] 08/14/2022 Appointment Laboratory Medicine Angélica Granger P.A.-C. [address] [place] [phone] 08/28/2022 Appointment Laboratory Medicine Angélica Granger P.A.-C. [address] [place] [phone] documented as of this encounter Visit Diagnoses Not on filedocumented in this encounter Additional Health Concerns Assessment Noted Time PHQ-9 Depression Total Score: 4 11/28/2020 10:17 AM CD T documented as of this encounter Care Teams Supervisor Garment Manufacturing Relationship Specialty Start Date End Date Elsewhere, Pcp PCP - General Family Medicine 07/29/17 [facility] - Laboratory Medicine 04/12/[address] [address] documented as of this encounter
--- OUTSIDE RECORDS SUMMARY | 2022-05-17 18:17 | XMS_ITS | Encounter Summary ---
:[address] 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 [address] [place] [phone] 05/23/2022 Clinical Admitting/Central Communication Scheduling 05/27/2022 Comprehensive Visit Orthopedic Surgery Markus Sams M.D., Ph.D. [address] [place] [phone] 05/29/2022 Office Visit Otorhinolaryngology Dex Matta, RAMONA, C.N.P., M.S.N. [address] [place] [phone] 05/29/2022 Office Visit Otorhinolaryngology Nadeem Maradiaga, P.Murtaza.-Arley., M.S. [address] [place] [address] [phone] 05/31/2022 Appointment Radiology Guilherme Matt MPAS, Jennifer., M.S. [address] [place] [address] [phone] 06/05/2022 Appointment Laboratory Medicine Angélica Granger P.A.-C. [address] [place] [phone] 06/19/2022 Appointment Laboratory Medicine Angélica Granger P.A.-C. [address] [place] [phone] 07/03/2022 Appointment Laboratory Medicine Angélica Granger P.A.-C. [address] [place] [phone] 07/17/2022 Appointment Laboratory Medicine Angélica Granger P.A.-C. [address] [place] [phone] 07/31/2022 Appointment Laboratory Medicine Angélica Granger P.A.-C. [address] [place] [phone] 08/14/2022 Appointment Laboratory Medicine Angélica Granger P.A.-C. [address] [place] [address] [phone] 08/28/2022 Appointment Laboratory Medicine Angélica Granger P.A.-C. [address] [place] [address] [phone] documented as of this encounter Visit Diagnoses Not on filedocumented in this encounter Additional Health Concerns Assessment Noted Time PHQ-9 Depression Total Score: 4 11/28/2020 10:17 AM CD T documented as of this encounter Care Teams Loading Unit Operator Powder Charging Relationship Specialty Start Date End Date Elsewhere, Pcp PCP - General Family Medicine 07/29/17 [facility] - Laboratory Medicine 04/12/[address] [address] documented as of this encounter
--- OUTSIDE RECORDS SUMMARY | 2022-05-17 18:17 | XMS_ITS | Encounter Summary ---
:1955 Author Organization [facility] Address [address] [place] [address] Care Team Providers Name Role Phone Elsewhere, Pcp Primary Care Provider Unavailable Encounter Details Date Type Department Care Team Description 03/20/2022 Hospital Encounter Department of Angélica Granger ant Liver (HCC); Laboratory Medicine Leena PDemetriusADurgaC. 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 Medication Therapy Detention Not Anticoagulant NIFEdipine XL (PROCARDIA Take 60 [...] Laboratory Medicine Angélica Granger P.A.-C. [address] [place] [phone] 05/23/2022 Clinical Admitting/Central Communication Scheduling 05/27/2022 Comprehensive Visit Orthopedic Surgery Markus Sams M.D., Ph.D. [address] [place] [phone] 05/29/2022 Office Visit Otorhinolaryngology Dex Matta APRN, C.N.P., M.S.N. [address] [place] [phone] 05/29/2022 Office Visit Otorhinolaryngology Nadeem Maradiaga, Jennifer., M.S. [address] [place] [phone] 05/31/2022 Appointment Radiology Guilherme Matt, RASTA, Jennifer., M.S. [address] [place] [phone] 06/05/2022 Appointment Laboratory Medicine Angélica Granger P.A.-C. [address] [place] [phone] 06/19/2022 Appointment Laboratory Medicine Angélica Granger P.A.-C. [address] [place] [phone] 07/03/2022 Appointment Laboratory Medicine Angélica Granger P.A.-C. [address] [place] [phone] 07/17/2022 Appointment Laboratory Medicine Angélica Granger P.A.-C. [address] [place] [phone] 07/31/2022 Appointment Laboratory Medicine Angélica Granger P.A.-C. [address] [place] [phone] 08/14/2022 Appointment Laboratory Medicine Angélica Granger P.A.-C. [address] [place] [phone] 08/28/2022 Appointment Laboratory Medicine Angélica Granger P.A.-C. [address] [place] [phone] documented as of this encounter Procedures Procedure Name Priority Date/Time Associated Diagnosis Comme nts CBC WITHOUT Routine 03/20/2022 8:13 Transplant Liver Results for this DIFFERENTIAL, B AM CDT (HCC) procedure are in Medication Therapy the resul ts Detention Not section. Anticoagulant GLUCOSE, FASTING, S/P Routine 03/20/2022 8:13 Transplant Liver Results for this AM CDT (HCC) procedure are in Medication Therapy the resul ts Line Dancer Not section. Anticoagulant COMPREHENSIVE Routine 03/20/2022 8:13 Transplant Liver Results for this METABOLIC PANEL, S/P AM CDT (HCC) procedure are in Medication Therapy the resul ts Line Dancer Not section. Anticoagulant CMV DNA DETECT/QUANT, Routine 03/20/2022 8:12 Transplant Liver Results for this P AM CDT (HCC) procedure are in Medication Therapy the resul ts Detention Not section. Anticoagulant TACROLIMUS LEVEL, B Routine 03/20/2022 8:12 Transplant Liver R esults for this AM CDT (HCC) procedure are in Medication Therapy the resul ts Line Dancer Not section. Anticoagulant documented in this encounter [...] Address City/State/ZIP Code Phon e Number [facility]- [address] [place] [id number] [place] [address] (ABNORMAL) Comprehensive Metabolic Panel (03/20/2022 8:13 [...] P.A.-C. LAB BLOOD ADD-ON Performing Organization Address City/State/[facility] Code Phon e Number [address] LAB CN[place] [phone] System in [address] (ABNORMAL) CBC without Differential (03/20/2022 8:13 AM CDT) [facility] gist Method Time Signature Hemoglobin 11.0 (L) [...] P.A.-C. LAB BLOOD ADD-ON Performing Organization Address City/[facility] Phon e Number [address] [address] [place] [address] System [address] (ABNORMAL) Tacrolimus, B (03/20/2022 8:12 AM CDT) athologist Signature Tacrolimus, B <1.0 (L) 5.0-15.0 03/21/2022 [facility] (Trough) 10:21 AM CDT ng/mL Comment: ----ADDITIONAL [...] its performa nce characteristics determined by [facility] in a manner consistent with CLIA requirements. [...] HEALTH CARE SERVICES Code Phon e Number [facility] [address] [place], [place] [address] [place] [phone] [place] [address] [place] (ABNORMAL) CMV DNA Detect / Quant, Plasma (03/20/2022 8:12 AM CDT) [facility] gist Method Time Signature CMV DNA <35 (A) Undetected 03/21/2022 [facility] Detect/Quant, IU/mL 7:41 PM CDT P Comment: [...] performed u sing the tika CMV test ([employer] with the tika 6800 System. Specimen Anatomical Collection Method Collection Time Receive d Time (Source) Location / / Volume Laterality Blood (Blood, 03/20/2022 8:12 AM 03/21/20 22 8:38 Venous) CDT AM CDT Angélica Granger P.A.-C. LAB MICROBIOLOGY - BLOOD ORD ERABLES Performing Organization Address City/State/[facility] Phon e Number [facility] [address] [place] [address] [place] documented in this encounter Visit Diagnoses Diagnosis Transplant Liver (HCC) Medication Therapy Detention Not Anticoa gulant documented in this encounter Additional Health Concerns Assessment Noted Time PHQ-9 Depression Total Score: 4 11/28/2020 10:17 AM CD T documented as of this encounter Care Teams Mash Filter Press Operator Relationship Specialty Start Date End Date Elsewhere, Pcp PCP - General Family Medicine 07/29/17 [facility] - Laboratory Medicine 04/12/20 [place] [address] documented as of this encounter
--- OUTSIDE RECORDS SUMMARY | 2022-05-17 18:17 | XMS_ITS | Encounter Summary ---
:1955 Author Organization [facility] Address [address] [place] [address] Care Team Providers Name Role Phone Elsewhere, Pcp Primary Care Provider Unavailable Reason for Referral MRI/CAT/PET Scan (Routine) - Closed Specialty Diagnoses / Procedures Referred By Contact Refer red To Contact Radiology Diagnoses Pneumonia Fungal Chronic Obstructive Pulmonary Disease Without Exacerbation (HCC) Lung Interstitial Disease (HCC) Trung Plasencia P.A.-C., [facility] Procedures CT Chest without IV Contrast M.S. 200 [place] [address] Referral ID Status Reason Start Date Expiration Date Visits Requ ested Visits Authorized [id number] Closed 03/13/2022 03/13/2023 1 1 Encounter Details Date Type Department Care Team Description 03/13/2022 Orders Only Trung Swenson Pneumo lili Fungal (Primary Dx); Center for Transplantation Edmundo Stern, C hronic Obstructive Pulmonary Disease Without Exacerbation (HCC); and Clinical Regeneration M.S. 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 [address] [place] [phone] 05/23/2022 Clinical Admitting/Central Communication Scheduling 05/27/2022 Comprehensive Visit Orthopedic Surgery Markus Sams M.D., Ph.D. [address] [place] [phone] 05/29/2022 Office Visit Otorhinolaryngology Dex Matta APRN CDemetriusNFabrice., M.S.N. [address] [place] [phone] 05/29/2022 Office Visit Otorhinolaryngology Nadeem Maradiaga P.A.-C., M.S. [address] [place] [phone] 05/31/2022 Appointment Radiology Guilherme Matt MPAS, P.A.-C., M.S. [address] [place] [phone] 06/05/2022 Appointment Laboratory Medicine Angélica Granger P.A.-C. [address] [place] [phone] 06/19/2022 Appointment Laboratory Medicine Angélica Granger P.A.-C. [address] [place] [phone] 07/03/2022 Appointment Laboratory Medicine Angélica Granger P.A.-C. [address] [place] [phone] 07/17/2022 Appointment Laboratory Medicine Angélica Granger P.A.-C. [address] [place] [phone] 07/31/2022 Appointment Laboratory Medicine Agnélica Granger P.A.-C. [address] [place] [phone] 08/14/2022 Appointment Laboratory Medicine Angélica Granger Jennifer Stern. [address] [place] [phone] 08/28/2022 Appointment Laboratory Medicine Angélica Granger Jennifer Stern. [address] [place] [phone] documented as of this encounter Results CT [...] documented as of this encounter Care Teams Economic Development Director Relationship Specialty Start Date End Date Elsewhere, Pcp PCP - General Family Medicine 07/29/17 [facility] - Laboratory Medicine 04/12/20 [place] [phone] documented as of this encounter
--- OUTSIDE RECORDS SUMMARY | 2022-05-17 18:17 | XMS_ITS | Encounter Summary ---
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 [address] [place] [phone] 05/23/2022 Clinical Admitting/Central Communication Scheduling 05/27/2022 Comprehensive Visit Orthopedic Surgery Markus Sams M.D., Ph.D. [address] [place] [phone] 05/29/2022 Office Visit Otorhinolaryngology Dex Matta APRN, C.N.P., M.S.N. [address] [place] [phone] 05/29/2022 Office Visit Otorhinolaryngology Nadeem Maradiaga, P.Murtaza.-C., M.S. [address] [place] [address] [phone] 05/31/2022 Appointment Radiology Guilherme Matt, RASTA, PEdgar.Marie., M.S. [address] [place] [phone] 06/05/2022 Appointment Laboratory Medicine Angélica Granger P.A.-C. [address] [place] [phone] 06/19/2022 Appointment Laboratory Medicine Angélica Granger P.A.-C. [address] [place] [phone] 07/03/2022 Appointment Laboratory Medicine Angélica Granger P.A.-C. [address] [place] [phone] 07/17/2022 Appointment Laboratory Medicine Angélica Granger P.A.-C. [address] [place] [phone] 07/31/2022 Appointment Laboratory Medicine Angélica Granger P.A.-C. [address] [place] [phone] 08/14/2022 Appointment Laboratory Medicine Angélica Granger P.A.-C. [address] [place] [address] [phone] 08/28/2022 Appointment Laboratory Medicine Angélica Granger P.A.-C. [address] [place] [address] [phone] documented as of this encounter Visit Diagnoses Not on filedocumented in this encounter Additional Health Concerns Assessment Noted Time PHQ-9 Depression Total Score: 4 11/28/2020 10:17 AM CD T documented as of this encounter Care Teams Gasket Winder Relationship Specialty Start Date End Date Elsewhere, Pcp PCP - General Family Medicine 07/29/17 [facility] - Laboratory Medicine 04/12/[address] [address] documented as of this encounter
[2022-05-17 18:18] LABS: Basophils Absolute Auto 0.01 K/uL (0.00-0.30); Basophils Percent Auto 0.1 % (0.0-3.0); Eosinophils Absolute Auto 0.04 K/uL (0.00-0.50); Eosinophils Percent Auto 0.5 % (0.0-7.0); Immature Granulocytes Abs Auto 0.08 K/uL (0.00-0.30); Lymphocytes Percent Auto 10.3 % (20-44); Mean Corpuscular HGB Conc 32 gm/dL (32-36); Mean Corpuscular Hemoglobin 32 pg (26-34); Mean Corpuscular Volume 99 fL (80-100); Monocytes Percent Auto 7.6 % (0.0-11.0); Neutrophils Percent Auto 80.5 % (42.0-72.0); Platelet Count* 251 K/uL (140-440); RDW Coefficient of Variation % 12.7 % (11.5-15.5); Red Blood Count 3.12 m/uL (4.30-5.90); White Blood Count* 7.93 K/uL (4.50-11.00)
--- OUTSIDE RECORDS SUMMARY | 2022-05-17 18:18 | XMS_ITS | Encounter Summary ---
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 Patient also messaged asking if you could sign this prescription. documented in this encounter Plan of Treatment Upcoming Encounters Date Type Specialty Care Team Description 05/22/2022 Appointment Laboratory Medicine Angélica Granger P.A.-Janette [address] [place] [phone] 05/23/2022 Clinical Admitting/Central Communication Scheduling 05/27/2022 Comprehensive Visit Orthopedic Surgery Markus Sams M.D., Ph.D. [address] [place] [phone] 05/29/2022 Office Visit Otorhinolaryngology Dex Matta APRN, C.N.P., M.S.N. [address] [place] [phone] 05/29/2022 Office Visit Otorhinolaryngology Nadeem Maradiaga P.Murtzaa.-Arley., M.S. [address] [place] [phone] 05/31/2022 Appointment Radiology Guilherme Matt MPAS, P.A.-C., M.S. [address] [place] [phone] 06/05/2022 Appointment Laboratory Medicine Angélica Granger P.A.-C. [address] [place] [phone] 06/19/2022 Appointment Laboratory Medicine Angélica Granger P.A.-C. [address] [place] [phone] 07/03/2022 Appointment Laboratory Medicine Angélica Granger P.A.-C. [address] [place] [phone] 07/17/2022 Appointment Laboratory Medicine Angélica Granger P.A.-C. [address] [place] [phone] 07/31/2022 Appointment Laboratory Medicine Angélica Granger P.A.-C. [address] [place] [phone] 08/14/2022 Appointment Laboratory Medicine Angélica Granger P.A.-C. [address] [place] [phone] 08/28/2022 Appointment Laboratory Medicine Angélica Granger P.A.-C. [address] [place] [phone] documented as of this encounter Visit Diagnoses Not on filedocumented in this encounter Additional Health Concerns Assessment Noted Time PHQ-9 Depression Total Score: 4 11/28/2020 10:17 AM CD T documented as of this encounter Care Teams Returner Relationship Specialty Start Date End Date Elsewhere, Pcp PCP - General Family Medicine 07/29/17 [facility] - Laboratory Medicine 04/12/20 [place] [phone] documented as of this encounter
--- OUTSIDE RECORDS SUMMARY | 2022-05-17 18:18 | XMS_ITS | Encounter Summary ---
:1955 Author Organization [facility] Address [address] [place] [address] Care Team Providers Name Role Phone Elsewhere, Pcp Primary Care Provider Unavailable Reason for Visit Reason Comments Labs Only Encounter Details Date Type Department Care Team Description 02/21/2022 Clinical Communication Irena Gamez [facility] Labs Only Center for R, R.N. 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 *All labs are now found in [employer] - Lab - Flowsheets. For further review of labs, please review there or under Synopsis* documented in 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 [address] [place] [phone] 05/23/2022 Clinical Admitting/Central Communication Scheduling 05/27/2022 Comprehensive Visit Orthopedic Surgery Markus Sams M.D., Ph.D. [address] [place] [phone] 05/29/2022 Office Visit Otorhinolaryngology Dex Matta APRN, C.N.P., M.S.N. [address] [place] [phone] 05/29/2022 Office Visit Otorhinolaryngology Nadeem Maradiaga, PEdgar.Marie., M.S. [address] [place] [phone] 05/31/2022 Appointment Radiology Guilherme Matt MPAS, Jennifer., M.S. [address] [place] [phone] 06/05/2022 Appointment Laboratory Medicine Angélica Granger P.A.-C. [address] [place] [phone] 06/19/2022 Appointment Laboratory Medicine Angélica Granger P.A.-C. [address] [place] [phone] 07/03/2022 Appointment Laboratory Medicine Angélica Granger P.A.-C. [address] [place] [phone] 07/17/2022 Appointment Laboratory Medicine Angélica Granger P.A.-C. [address] [place] [phone] 07/31/2022 Appointment Laboratory Medicine Angélica Granger P.A.-C. [address] [place] [phone] 08/14/2022 Appointment Laboratory Medicine Angélica Granger P.A.-C. [address] [place] [phone] 08/28/2022 Appointment Laboratory Medicine Angélica Granger P.A.-C. [address] [place] [phone] documented as of this encounter Visit Diagnoses Not on filedocumented in this encounter Additional Health Concerns Assessment Noted Time PHQ-9 Depression Total Score: 4 11/28/2020 10:17 AM CD T documented as of this encounter Care Teams Slice Cutting Machine Operator Helper Relationship Specialty Start Date End Date Elsewhere, Pcp PCP - General Family Medicine 07/29/17 [facility] - Laboratory Medicine 04/12/[address] [address] documented as of this encounter
--- OUTSIDE RECORDS SUMMARY | 2022-05-17 18:18 | XMS_ITS | Encounter Summary ---
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 [address] [place] [phone] 05/23/2022 Clinical Admitting/Central Communication Scheduling 05/27/2022 Comprehensive Visit Orthopedic Surgery Markus Sams M.D., Ph.D. [address] [place] [phone] 05/29/2022 Office Visit Otorhinolaryngology Dex Matta APRN, C.N.P., M.S.N. [address] [place] [phone] 05/29/2022 Office Visit Otorhinolaryngology Nadeem Maradiaga, P.A.-C., M.S. [address] [place] [phone] 05/31/2022 Appointment Radiology Guilherme Matt MPAS, PMaryanne., M.S. [address] [place] [phone] 06/05/2022 Appointment Laboratory Medicine Angélica Granger P.A.-C. [address] [place] [phone] 06/19/2022 Appointment Laboratory Medicine Angélica Granger P.A.-C. [address] [place] [phone] 07/03/2022 Appointment Laboratory Medicine Angélica Granger P.A.-C. [address] [place] [phone] 07/17/2022 Appointment Laboratory Medicine Angélica Granger P.A.-C. [address] [place] [address] [phone] 07/31/2022 Appointment Laboratory Medicine Angélica Granger P.A.-C. [address] [place] [phone] 08/14/2022 Appointment Laboratory Medicine Angélica Granger P.A.-C. [address] [place] [phone] 08/28/2022 Appointment Laboratory Medicine Angélica Granger P.A.-C. [address] [place] [phone] documented as of this encounter Visit Diagnoses Not on filedocumented in this encounter Additional Health Concerns Assessment Noted Time PHQ-9 Depression Total Score: 4 11/28/2020 10:17 AM CD T documented as of this encounter Care Teams Green Building Materials Designer Relationship Specialty Start Date End Date Elsewhere, Pcp PCP - General Family Medicine 07/29/17 [facility] - Laboratory Medicine 04/12/[address] [address] documented as of this encounter
--- OUTSIDE RECORDS SUMMARY | 2022-05-17 18:18 | XMS_ITS | Encounter Summary ---
:1955 Author Organization [facility] Address [address] [place] [address] Care Team Providers Name Role Phone Elsewhere, Pcp Primary Care Provider Unavailable Encounter Details Date Type Department Care Team Description 02/20/2022 Hospital Encounter Department of Angélica Granger ant Liver (HCC); Laboratory Medicine Leena PColtC. 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 vancomycin (VANCOCIN) TAKE 1 CAPSULE BY 34 capsule 0 021 05/26/2022 125 mg capsule MOUTH FOUR TIMES A DAY FOR 34 DOSES voriconazole (VFEND) 200 Take 200 mg by 0 mg tablet mouth 2 (two) times a day. isavuconazonium Take 2 capsules 180 capsule 0 01/21/2022 (CRESEMBA) 186 mg (372 mg total) by capsule mouth daily. predniSONE (DELTASONE) Take 4 tabs (40mg) 40 [...] dialysis Term Not Anticoagulant, Infection Cytomegalovirus (HCC) [id number] Inhale 1 puff 60 each 3 02/08/20 [...] mouth Transplant Liver (HCC), daily. Medication Therapy Mcc Not Anticoagulant documented as of 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 [address] [place] [phone] 05/23/2022 Clinical Admitting/Central Communication Scheduling 05/27/2022 Comprehensive Visit Orthopedic Surgery Markus Sams M.D., Ph.D. [address] [place] [phone] 05/29/2022 Office Visit Otorhinolaryngology Dex Matta APRN, C.N.P., M.S.N. [address] [place] [phone] 05/29/2022 Office Visit Otorhinolaryngology Nadeem Maradiaga, PMaryanne., M.S. [address] [place] [phone] 05/31/2022 Appointment Radiology Guilherme Matt MPAS, PMaryanne., M.S. [address] [place] [phone] 06/05/2022 Appointment Laboratory Medicine Angélica Granger P.A.-C. [address] [place] [phone] 06/19/2022 Appointment Laboratory Medicine Angélica Granger P.A.-C. [address] [place] [address] [phone] 07/03/2022 Appointment Laboratory Medicine Angélica Granger P.A.-C. [address] [place] [phone] 07/17/2022 Appointment Laboratory Medicine Angélica Granger P.A.-C. [address] [place] [phone] 07/31/2022 Appointment Laboratory Medicine Angélica Granger P.A.-C. [address] [place] [address] [phone] 08/14/2022 Appointment Laboratory Medicine Angélica Granger P.A.-C. [address] [place] [address] [phone] 08/28/2022 Appointment Laboratory Medicine Angélica Granger P.A.-C. [address] [place] [phone] documented as of this encounter Procedures Procedure Name Priority Date/Time Associated Diagnosis Comme nts CMV DNA DETECT/QUANT, Routine 02/20/2022 8:13 Transplant Liver Results for this P AM CDT (HCC) procedure are in Medication Therapy the resul ts Mcc Not section. Anticoagulant TACROLIMUS LEVEL, B Routine 02/20/2022 8:13 Transplant Liver R esults for this AM CDT (HCC) procedure are in Medication Therapy the resul ts Bench Shear Operator Not section. Anticoagulant CBC WITHOUT Routine 02/20/2022 8:13 Transplant Liver Results for this DIFFERENTIAL, B AM CDT (HCC) procedure are in Medication Therapy the resul ts Mcc Not section. Anticoagulant GLUCOSE, FASTING, S/P Routine 02/20/2022 8:13 Transplant Liver Results for this AM CDT (HCC) procedure are in Medication Therapy the resul ts Bench Shear Operator Not section. Anticoagulant COMPREHENSIVE Routine 02/20/2022 8:13 Transplant Liver Results for this METABOLIC PANEL, S/P AM CDT (HCC) procedure are in Medication Therapy the resul ts Bench Shear Operator Not section. Anticoagulant documented in this encounter Results (ABNORMAL) Tacrolimus, B (02/20/2022 8:13 AM CDT) athologist Signature Tacrolimus, B 1.7 (L) 5.0-15.0 02/21/2022 [facility] (Trough) 10:46 AM CDT ng/mL Comment: ----ADDITIONAL [...] and its performa nce characteristics determined by [facility] in a manner consistent with CLIA requirements. This test has not been cleared or approved by the U.S. Mer d and Drug Administration. Specimen Anatomical Collection Method Collection Time Receive d Time (Source) Location / / Volume Laterality Blood (Blood, 02/20/2022 8:13 AM 02/22/20 22 7:33 Venous) CDT AM CDT Angélica Granger P.A.-C. LAB BLOOD NON ADD-ON Performing Organization Address [facility] Phon e Number [address] [place] [address] [place] CMV DNA Detect / Quant, Plasma (02/20/2022 8:13 AM CDT) [facility] Method Time Signature CMV DNA Undetected Undetected 02/21/2022 [facility] Detect/Quant, IU/mL 12:53 PM P CDT Comment: Result in log IU/mL is Undetected. ----ADDITIONAL INFORMATION---- The quantification range of this assay i s 35 to 10,000,000 IU/mL (1.54 log to 7.00 log IU/mL). Testing was performed u sing the tika CMV test ([employer] with the tika [id number] System. Specimen Anatomical Collection Method Collection Time Receive d Time (Source) Location / / Volume Laterality Blood (Blood, 02/20/2022 8:13 AM 02/22/20 22 7:13 Venous) CDT AM CDT Angélica Granger P.A.-C. LAB MICROBIOLOGY - BLOOD ORD ERABLES Performing Organization Address City/[facility]/ZIP Code Phon e Number [facility] [address] [place], [place] [address] [place] [address] [facility] [address] [place] (ABNORMAL) Glucose, Fasting (02/20/2022 8:13 [...] Organization Address City/State/ZIP Code Phon e Number [address] [address] [place] [address] [address] (ABNORMAL) Comprehensive Metabolic Panel (02/20/2022 8:13 [...] Phon e Number [facility]- [address] [place] [address] [place] [address] System [address] (ABNORMAL) CBC without Differential (02/20/2022 8:13 AM CDT) [facility] Method Time Signature Hemoglobin 11.1 (L) 13.2 [...] [facility] Code Phon e Number [facility]- [address] [place] [address] [place] [address] [place] [address] System [address] documented in this encounter Visit Diagnoses Diagnosis Transplant Liver (HCC) Medication Therapy Bench Shear Operator Not Anticoa gulant documented in this encounter Additional Health Concerns Assessment Noted Time PHQ-9 Depression Total Score: 4 11/28/2020 10:17 AM CD T documented as of this encounter Care Teams [employer] Relationship Specialty Start Date End Date Elsewhere, Pcp PCP - General Family Medicine 07/29/17 [facility] - Laboratory Medicine 04/12/[address] [phone] documented as of this encounter
--- OUTSIDE RECORDS SUMMARY | 2022-05-17 18:18 | XMS_ITS | Encounter Summary ---
:1955 Author Organization [facility] Address [address] [place] [address] Care Team Providers Name Role Phone Elsewhere, Pcp Primary Care Provider Unavailable Reason for Visit Reason Comments Labs Only Encounter Details Date Type Department Care Team Description 02/28/2022 Clinical Communication Irena Gamez [facility] Labs Only Center for R, R.N. 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 *All labs are now found in [employer] - Lab - Flowsheets. For further review of labs, please review there or under Synopsis* documented in 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 [address] [place] [phone] 05/23/2022 Clinical Admitting/Central Communication Scheduling 05/27/2022 Comprehensive Visit Orthopedic Surgery Markus Sams M.D., Ph.D. [address] [place] [phone] 05/29/2022 Office Visit Otorhinolaryngology Dex Matta APRN, C.N.P., M.S.N. [address] [place] [phone] 05/29/2022 Office Visit Otorhinolaryngology Nadeem Maradiaga P.A.-C., M.S. [address] [place] [phone] 05/31/2022 Appointment Radiology Guilherme Matt MPAS, Edmundo, M.S. [address] [place] [phone] 06/05/2022 Appointment Laboratory Medicine Angélica Granger P.A.-C. [address] [place] [phone] 06/19/2022 Appointment Laboratory Medicine Angélica Granger P.A.-C. [address] [place] [phone] 07/03/2022 Appointment Laboratory Medicine Angélica Granger P.A.-C. [address] [place] [phone] 07/17/2022 Appointment Laboratory Medicine Angélica Granger P.A.-C. [address] [place] [address] [phone] 07/31/2022 Appointment Laboratory Medicine Angélica Granger P.A.-C. [address] [place] [address] [phone] 08/14/2022 Appointment Laboratory Medicine Angélica Granger P.A.-C. [address] [place] [phone] 08/28/2022 Appointment Laboratory Medicine Angélica Granger P.A.-C. [address] [place] [address] [phone] documented as of this encounter Visit Diagnoses Not on filedocumented in this encounter Additional Health Concerns Assessment Noted Time PHQ-9 Depression Total Score: 4 11/28/2020 10:17 AM CD T documented as of this encounter Care Teams Speech Writer Relationship Specialty Start Date End Date Elsewhere, Pcp PCP - General Family Medicine 07/29/17 [facility] - Laboratory Medicine 04/12/20 [place] [phone] documented as of this encounter
--- OUTSIDE RECORDS SUMMARY | 2022-05-17 18:18 | XMS_ITS | Encounter Summary ---
:1955 Author Organization [facility] Address [address] [place] [address] Care Team Providers Name Role Phone Elsewhere, Pcp Primary Care Provider Unavailable Encounter Details Date Type Department Care Team Description 02/27/2022 Hospital Encounter Department of Angélica Granger ant Liver (HCC); Laboratory Medicine J PDemetriusADurgaC. 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 200-62.5-25 mcg inhaler mycophenolate (CELLCEPT) Take 2 capsules 360 capsule 3 02/1504/22/2022 250 mg (500 mg total) by capsuleIndications: mouth 2 (two) times Transplant Liver (HCC), a day. Do not Infection break, cut, or open Cytomegalovirus (HCC), capsules. Medication Therapy Assisted Not Anticoagulant NIFEdipine XL (PROCARDIA Take 60 mg by mouth 0 04/29/2022 XL) 30 mg 24 hr tablet daily. tacrolimus (PROGRAF) 0.5 Take 1 capsule (0.5 90 capsule 3 03/15/2022 mg capsuleIndications: mg total) by mouth Transplant Liver (HCC), daily. Medication Therapy Assisted Not Anticoagulant documented as of 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 [address] [place] [phone] 05/23/2022 Clinical Admitting/Central Communication Scheduling 05/27/2022 Comprehensive Visit Orthopedic Surgery Markus Sams M.D., Ph.D. [address] [place] [phone] 05/29/2022 Office Visit Otorhinolaryngology Dex Matta APRN, C.N.P., M.S.N. [address] [place] [phone] 05/29/2022 Office Visit Otorhinolaryngology Nadeem Maradiaga, PMaryanne., M.S. [address] [place] [phone] 05/31/2022 Appointment Radiology Guilherme Matt MPAS, PMaryanne., M.S. [address] [place] [address] [phone] 06/05/2022 Appointment Laboratory Medicine Angélica Granger P.A.-C. [address] [place] [phone] 06/19/2022 Appointment Laboratory Medicine Angélica Granger P.A.-C. [address] [place] [phone] 07/03/2022 Appointment Laboratory Medicine Angélica Granger P.A.-C. [address] [place] [phone] 07/17/2022 Appointment Laboratory Medicine Angélica Granger P.A.-C. [address] [place] [phone] 07/31/2022 Appointment Laboratory Medicine Angélica Granger P.A.-C. [address] [place] [address] [phone] 08/14/2022 Appointment Laboratory Medicine Angélica Granger P.A.-C. [address] [place] [address] [phone] 08/28/2022 Appointment Laboratory Medicine Angélica Granger P.A.-C. [address] [place] [phone] documented as of this encounter Procedures Procedure Name Priority Date/Time Associated Diagnosis Comme nts GLUCOSE, FASTING, S/P Routine 02/27/2022 8:08 Transplant Liver Results for this AM CDT (HCC) procedure are in Medication Therapy the resul ts Dean Of Students Not section. Anticoagulant CMV DNA DETECT/QUANT, Routine 02/27/2022 8:07 Transplant Liver Results for this P AM CDT (HCC) procedure are in Medication Therapy the resul ts Assisted Not section. Anticoagulant TACROLIMUS LEVEL, B Routine 02/27/2022 8:07 Transplant Liver R esults for this AM CDT (HCC) procedure are in Medication Therapy the resul ts Assisted Not section. Anticoagulant CBC WITHOUT Routine 02/27/2022 8:07 Transplant Liver Results for this DIFFERENTIAL, B AM CDT (HCC) procedure are in Medication Therapy the resul ts Dean Of Students Not section. Anticoagulant COMPREHENSIVE Routine 02/27/2022 8:07 Transplant Liver Results for this METABOLIC PANEL, S/P AM CDT (HCC) procedure are in Medication Therapy the resul ts Dean Of Students Not section. Anticoagulant documented in this encounter [...] LAB BLOOD NON ADD-ON Performing Organization Address City/[facility] Code Phon e Number [address] [address] [place] [address] (ABNORMAL) Tacrolimus, B (02/27/2022 8:07 AM CDT) athologist Signature Tacrolimus, B 1.8 (L) 5.0-15.0 02/28/2022 [facility] (Trough) 11:05 AM CDT ng/mL Comment: ----ADDITIONAL [...] and its performa nce characteristics determined by [facility] in a manner consistent with [...] Phon e Number [facility] DRIVE [address] [place], [place] [address] [place] [address] - [place], [place] [phone] [place] [address] [place] (ABNORMAL) CMV DNA Detect / Quant, Plasma (02/27/2022 8:07 AM CDT) Patholo gist Method Time Signature CMV DNA <35 (A) Undetected 02/28/2022 [facility] Detect/Quant, IU/mL 2:48 PM CDT P Comment: [...] performed u sing the tika CMV test ([employer] with the tika [id number] System. Specimen Anatomical Collection Method Collection Time Receive d Time (Source) Location / / Volume Laterality Blood (Blood, 02/27/2022 8:07 AM 02/29/20 7:15 Venous) CDT AM CDT Angélica Granger P.A.-C. LAB MICROBIOLOGY - BLOOD ORD ERABLES Performing Organization Address City/State/[facility] Code Phon e Number [facility] [address] [place], [place] [address] [facility] [place], [place] [phone] [place] [address] [place] (ABNORMAL) Comprehensive Metabolic Panel (02/27/2022 [...] Code Phon e Number [facility]- [address] [place] [address] [place] [address] [place] [address] [address] (ABNORMAL) CBC without Differential (02/27/2022 8:07 AM CDT) [facility] gist Method Time Signature Hemoglobin 10.7 [...] P.A.-C. LAB BLOOD ADD-ON Performing Organization Address [facility]/State/[facility] Phon e Number [facility]- [address] [place] [phone] [place] [address] [place] [address] System [address] documented in this encounter Visit Diagnoses Diagnosis Transplant Liver (HCC) Medication Therapy Dean Of Students Not Anticoa gulant documented in this encounter Additional Health Concerns Assessment Noted Time PHQ-9 Depression Total Score: 4 11/28/2020 10:17 AM CD T documented as of this encounter Care Teams Planner Internship Relationship Specialty Start Date End Date Elsewhere, Pcp PCP - General Family Medicine 07/29/17 [facility] - Laboratory Medicine 04/12/20 [place] [address] documented as of this encounter
--- OUTSIDE RECORDS SUMMARY | 2022-05-17 18:18 | XMS_ITS | Encounter Summary ---
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 [address] [place] [phone] 05/23/2022 Clinical Admitting/Central Communication Scheduling 05/27/2022 Comprehensive Visit Orthopedic Surgery Markus Sams M.D., Ph.D. [address] [place] [phone] 05/29/2022 Office Visit Otorhinolaryngology Dex Matta APRN, C.NFabrice., M.S.N. [address] [place] [phone] 05/29/2022 Office Visit Otorhinolaryngology Nadeem Maradiaga, Edmundo, M.S. [address] [place] [phone] 05/31/2022 Appointment Radiology Guilherme Matt, RASTA, Edmundo, M.S. [address] [place] [phone] 06/05/2022 Appointment Laboratory Medicine Angélica Granger P.A.-C. [address] [place] [phone] 06/19/2022 Appointment Laboratory Medicine Angélica Granger P.A.-C. [address] [place] [phone] 07/03/2022 Appointment Laboratory Medicine Angélica Granger P.A.-C. [address] [place] [phone] 07/17/2022 Appointment Laboratory Medicine Angélica Granger P.A.-C. [address] [place] [phone] 07/31/2022 Appointment Laboratory Medicine Angélica Granger P.A.-C. [address] [place] [phone] 08/14/2022 Appointment Laboratory Medicine Angélica Granger P.A.-C. [address] [place] [phone] 08/28/2022 Appointment Laboratory Medicine Angélica Granger P.A.-C. [address] [place] [phone] documented as of this encounter Visit Diagnoses Not on filedocumented in this encounter Additional Health Concerns Assessment Noted Time PHQ-9 Depression Total Score: 4 11/28/2020 10:17 AM CD T documented as of this encounter Care Teams Production Team Manager Relationship Specialty Start Date End Date Elsewhere, Pcp PCP - General Family Medicine 07/29/17 [facility] - Laboratory Medicine 04/12/[address] [address] documented as of this encounter
--- OUTSIDE RECORDS SUMMARY | 2022-05-17 18:18 | XMS_ITS | Encounter Summary ---
:1955 Author Organization [facility] Address [address] [place] [address] Care Team Providers Name Role Phone Elsewhere, Pcp Primary Care Provider Unavailable Encounter Details Date Type Department Care Team Description 03/13/2022 Hospital Encounter Department of Angélica Granger ant Liver (HCC); Laboratory Medicine Leena PDemetriusADurgaC. 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 [address] [place] [phone] 05/23/2022 Clinical Admitting/Central Communication Scheduling 05/27/2022 Comprehensive Visit Orthopedic Surgery Markus Sams M.D., Ph.D. [address] [place] [phone] 05/29/2022 Office Visit Otorhinolaryngology Dex Matta APRN, C.N.P., M.S.N. [address] [place] [phone] 05/29/2022 Office Visit Otorhinolaryngology Nadeem Maradiaga, Jennifer., M.S. [address] [place] [phone] 05/31/2022 Appointment Radiology Guilherme Matt, RASTA, Edmundo, M.S. [address] [place] [phone] 06/05/2022 Appointment Laboratory Medicine Angélica Granger P.A.-C. [address] [place] [phone] 06/19/2022 Appointment Laboratory Medicine Angélica Granger P.A.-C. [address] [place] [phone] 07/03/2022 Appointment Laboratory Medicine Angélica Granger P.A.-C. [address] [place] [phone] 07/17/2022 Appointment Laboratory Medicine Angélica Granger P.A.-C. [address] [place] [phone] 07/31/2022 Appointment Laboratory Medicine Angélica Granger P.A.-C. [address] [place] [phone] 08/14/2022 Appointment Laboratory Medicine Angélica Granger P.A.-C. [address] [place] [phone] 08/28/2022 Appointment Laboratory Medicine Angélica Granger P.A.-C. [address] [place] [phone] documented as of this encounter Procedures Procedure Name Priority Date/Time Associated Diagnosis Comme nts CMV DNA DETECT/QUANT, Routine 03/13/2022 8:00 Transplant Liver Results for this P AM CDT (HCC) procedure are in Medication Therapy the resul ts Belt Builder Helper Not section. Anticoagulant TACROLIMUS LEVEL, B Routine 03/13/2022 8:00 Transplant Liver R esults for this AM CDT (HCC) procedure are in Medication Therapy the resul ts Mcc Not section. Anticoagulant CBC WITHOUT Routine 03/13/2022 8:00 Transplant Liver Results for this DIFFERENTIAL, B AM CDT (HCC) procedure are in Medication Therapy the resul ts Belt Builder Helper Not section. Anticoagulant GLUCOSE, FASTING, S/P Routine 03/13/2022 8:00 Transplant Liver Results for this AM CDT (HCC) procedure are in Medication Therapy the resul ts Mcc Not section. Anticoagulant COMPREHENSIVE Routine 03/13/2022 8:00 Transplant Liver Results for this METABOLIC PANEL, S/P AM CDT (HCC) procedure are in Medication Therapy the resul ts Mcc Not section. Anticoagulant documented in this encounter [...] performa nce characteristics determined by [facility] in a manner consistent with CLIA requirements. This test has not been cleared or approved by the U.S. Mer d and Drug Administration. Specimen Anatomical Collection Method Collection Time Receive d Time (Source) Location / / Volume Laterality Blood (Blood, 03/13/2022 8:00 AM 03/14/20 7:25 Venous) CDT AM CDT Angélica Granger P.A.-C. LAB BLOOD NON ADD-ON Performing Organization Address [facility] Phon e Number [address] [place] [address] [place] CMV DNA Detect / Quant, Plasma (03/13/2022 8:00 AM CDT) [facility] Method Time Signature CMV DNA Undetected Undetected 03/14/2022 [facility] Detect/Quant, IU/mL 9:15 PM CDT P Comment: Result in log IU/mL is Undetected. ----ADDITIONAL INFORMATION---- The quantification range of this assay i s 35 to 10,000,000 IU/mL (1.54 log to 7.00 log IU/mL). Testing was performed u sing the tika CMV test ([employer] with the tika [id number] System. Specimen Anatomical Collection Method Collection Time Receive d Time (Source) Location / / Volume Laterality Blood (Blood, 03/13/2022 8:00 AM 03/14/20 7:06 Venous) CDT AM CDT Angélica Granger P.A.-C. LAB MICROBIOLOGY - BLOOD ORD ERABLES Performing Organization Address [facility] Phon e Number [address] [place] [address] [place] (ABNORMAL) Glucose, Fasting (03/13/2022 [...] Organization Address City/State/ZIP Code Phon e Number [address] [address] [place] [address] (ABNORMAL) Comprehensive Metabolic Panel (03/13/2022 8:00 [...] P.A.-C. LAB BLOOD ADD-ON Performing Organization Address City/State/[facility] Code Phon e Number [phone] [place] [address] [place] [address] System [address] (ABNORMAL) CBC without Differential (03/13/2022 8:00 AM CDT) [facility] gist Method Time Signature Hemoglobin 10.8 [...] Organization Address City/State/ZIP Code Phon e Number [facility]- [address] [place] [address] [place] [address] System [address] documented in this encounter Visit Diagnoses Diagnosis Transplant Liver (HCC) Medication Therapy Belt Builder Helper Not Anticoa gulant documented in this encounter Additional Health Concerns Assessment Noted Time PHQ-9 Depression Total Score: 4 11/28/2020 10:17 AM CD T documented as of this encounter Care Teams Wax Ball Knock Out Worker Relationship Specialty Start Date End Date Elsewhere, Pcp PCP - General Family Medicine 07/29/17 [facility] - Laboratory Medicine 04/12/20 [place] [address] documented as of this encounter
--- OUTSIDE RECORDS SUMMARY | 2022-05-17 18:18 | XMS_ITS | Encounter Summary ---
:1955 Author Organization [facility] Address [address] [place] [address] Care Team Providers Name Role Phone Elsewhere, Pcp Primary Care Provider Unavailable Reason for Visit Reason Comments Med Refill Encounter Details Date Type Department Care Team Description 02/15/2022 Refill [facility] 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 [address] [place] [phone] 05/23/2022 Clinical Admitting/Central Communication Scheduling 05/27/2022 Comprehensive Visit Orthopedic Surgery Markus Sams M.D., Ph.D. [address] [place] [phone] 05/29/2022 Office Visit Otorhinolaryngology Dex Matta APRN, C.N.P., M.S.N. [address] [place] [phone] 05/29/2022 Office Visit Otorhinolaryngology Nadeem Maradiaga, P.A.-C., M.S. [address] [place] [address] [phone] 05/31/2022 Appointment Radiology Guilherme Matt MPAS, PEdgar.Marie., M.S. [address] [place] [address] [phone] 06/05/2022 Appointment Laboratory Medicine Angélica Granger P.A.-C. [address] [place] [phone] 06/19/2022 Appointment Laboratory Medicine Angélica Granger P.A.-C. [address] [place] [phone] 07/03/2022 Appointment Laboratory Medicine Angélica Granger P.A.-C. [address] [place] [phone] 07/17/2022 Appointment Laboratory Medicine Angélica Granger P.A.-C. [address] [place] [phone] 07/31/2022 Appointment Laboratory Medicine Angélica Granger P.A.-C. [address] [place] [phone] 08/14/2022 Appointment Laboratory Medicine Angélica Granger P.A.-C. [address] [place] [phone] 08/28/2022 Appointment Laboratory Medicine Angélica Granger P.A.-C. [address] [place] [phone] documented as of this encounter Visit Diagnoses Diagnosis Transplant Liver (HCC) Infection Cytomegalovirus (HCC) Medication Therapy Nursing Home Not Anticoa gulant documented in this encounter Additional Health Concerns Assessment Noted Time PHQ-9 Depression Total Score: 4 11/28/2020 10:17 AM CD T documented as of this encounter Care Teams Lpn Or Medical Assistant Relationship Specialty Start Date End Date Elsewhere, Pcp PCP - General Family Medicine 07/29/17 [facility] - Laboratory Medicine 04/12/[address] [address] documented as of this encounter
--- OUTSIDE RECORDS SUMMARY | 2022-05-17 18:18 | XMS_ITS | Encounter Summary ---
:1955 Author Organization [facility] Address [address] [place] [address] Care Team Providers Name Role Phone Elsewhere, Pcp Primary Care Provider Unavailable Reason for Visit Reason Comments Med Refill budesonide Encounter Details Date Type Department Care Team Description 03/04/2022 Clinical Department of Jean, Med Refill Communication Otorhinolaryngology in [place] (bud esonide) [place], [place] Sada [address] [facility] [address] [place] [phone] [place] [address] Social History Tobacco Use Types Packs/Day Years [...] at Date Recorded 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 He went to [facility] and it had been canceled he [...] like this refilled stat to: [id number] [address] [place] [address] (P) [phone] (F) [phone] documented in 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 [address] [place] [address] [phone] 05/23/2022 Clinical Admitting/Central Communication Scheduling 05/27/2022 Comprehensive Visit Orthopedic Surgery Markus Sams M.D., Ph.D. [address] [place] [phone] 05/29/2022 Office Visit Otorhinolaryngology Dex Matta APRN C.N.Evan., M.S.N. [address] [place] [phone] 05/29/2022 Office Visit Otorhinolaryngology Nadeem Maradiaga, P.Murtaza.-Arley., M.S. [address] [place] [phone] 05/31/2022 Appointment Radiology Guilherme Matt MPAS, PMaryanne., M.S. [address] [place] [phone] 06/05/2022 Appointment Laboratory Medicine Angélica Granger P.A.-C. [address] [place] [phone] 06/19/2022 Appointment Laboratory Medicine Angélica Granger P.A.-C. [address] [place] [phone] 07/03/2022 Appointment Laboratory Medicine Angélica Granger P.A.-C. [address] [place] [phone] 07/17/2022 Appointment Laboratory Medicine Angélica Granger P.A.-C. [address] [place] [phone] 07/31/2022 Appointment Laboratory Medicine Angélica Granger P.A.-C. [address] [place] [phone] 08/14/2022 Appointment Laboratory Medicine Angélica Granger P.A.-C. [address] [place] [phone] 08/28/2022 Appointment Laboratory Medicine Angélica Granger P.A.-C. [address] [place] [phone] documented as of this encounter Visit Diagnoses Not on filedocumented in this encounter Additional Health Concerns Assessment Noted Time PHQ-9 Depression Total Score: 4 11/28/2020 10:17 AM CD T documented as of this encounter Care Teams Social Worker Relationship Specialty Start Date End Date Elsewhere, Pcp PCP - General Family Medicine 07/29/17 [facility] - Laboratory Medicine 04/12/[address] [address] documented as of this encounter
--- OUTSIDE RECORDS SUMMARY | 2022-05-17 18:19 | XMS_ITS | Encounter Summary ---
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 [address] [place] [phone] 05/23/2022 Clinical Admitting/Central Communication Scheduling 05/27/2022 Comprehensive Visit Orthopedic Surgery Markus Sams M.D., Ph.D. [address] [place] [phone] 05/29/2022 Office Visit Otorhinolaryngology Dex Matta, RAMONA, C.N.P., M.S.N. [address] [place] [phone] 05/29/2022 Office Visit Otorhinolaryngology Nadeem Maradiaga, P.Murtaza.-C., M.S. [address] [place] [phone] 05/31/2022 Appointment Radiology Guilherme Matt, RASTA, PMaryanne., M.S. [address] [place] [phone] 06/05/2022 Appointment Laboratory Medicine Angélica Granger P.A.-C. [address] [place] [phone] 06/19/2022 Appointment Laboratory Medicine Angélica Granger P.A.-C. [address] [place] [address] [phone] 07/03/2022 Appointment Laboratory Medicine Angélica Granger P.A.-C. [address] [place] [address] [phone] 07/17/2022 Appointment Laboratory Medicine Angélica Granger P.A.-C. [address] [place] [phone] 07/31/2022 Appointment Laboratory Medicine Angélica Granger P.A.-C. [address] [place] [phone] 08/14/2022 Appointment Laboratory Medicine Angélica Granger P.A.-C. [address] [place] [address] [phone] 08/28/2022 Appointment Laboratory Medicine Angélica Granger P.A.-C. [address] [place] [phone] documented as of this encounter Procedures Procedure Name Priority Date/Time Associated Diagnosis Comme nts SARS CORONAVIRUS-2 Routine 02/04/2022 4:38 PM Preprocedural La b Exam Results for this RNA, V CDT procedure are i n the results section. documented in this encounter Results SARS Coronavirus-2 RNA, V Asymptomatic (02/04/2022 4:38 PM CDT) [facility] gist Method Time Signature SARS-CoV-2 Swab, 02/05/2022 MKTO [...] pe rformed using the Aptima SARS-CoV-2 assay ([employer] on the [employer] tem under emergency use authorization (EUA) by the U.S. Food and Drug Administ ration. Fact sheets for this EUA assay can be fo und at the following links: For Healthcare Providers: https://www.DaisyBill a.gov/media/594408/download For Patients: https://www.fda.gov/media/ 712677/download Specimen Anatomical Collection Method Collection Time Receive d Time (Source) Location / / Volume Laterality Varies 02/04/2022 4:38 PM 4:55 (Nasopharynx) CDT AM CDT Connie Barron LAB MICROBIOLOGY - GENERAL ORDERABLES Performing Organization Address City/State/ZIP Code Phon e Number [facility]- [address] [place] [address] [place] [address] [address] documented in this encounter Visit Diagnoses Diagnosis Preprocedural Lab Exam documented in this encounter Additional Health Concerns Infection Onset Date Last Indicated Resolved Time COVID19 Pending 02/04/2022 02/04/2022 02/05/2022 2:30 PM CDT Assessment Noted Time PHQ-9 Depression Total Score: 4 11/28/2020 10:17 AM CD T documented as of this encounter Care Teams Systems Requirements Planner Relationship Specialty Start Date End Date Elsewhere, Pcp PCP - General Family Medicine 07/29/17 [facility] - Laboratory Medicine 04/12/[address] [address] documented as of this encounter
--- OUTSIDE RECORDS SUMMARY | 2022-05-17 18:19 | XMS_ITS | Encounter Summary ---
:1955 Author Organization [facility] Address [address] [place] [address] Care Team Providers Name Role Phone Elsewhere, Pcp Primary Care Provider Unavailable Reason for Visit Reason Comments Waitlist review meeting Encounter Details Date Type Department Care Team Description 01/31/2022 Clinical Curt Anju Bhardwaj, Wait list review Communication Center for Patricia Azevedo meeting Transplantation and R.N., C.C.T. C. 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 - 02/01/2022 7:13 AM CDT Patient was presented for waitlist re-discussion on: 01/31/2022 Activation Date: 04/07/2018 TI Date: 12/05/2021 Last seen at [facility] Trans[facility]: 12/05/2021 Reason for TI: temporarily [...] Laboratory Medicine Angélica Granger P.A.-C. [address] [place] [phone] 05/23/2022 Clinical Admitting/Central Communication Scheduling 05/27/2022 Comprehensive Visit Orthopedic Surgery Markus Sams M.D., Ph.D. [address] [place] [phone] 05/29/2022 Office Visit Otorhinolaryngology Dex Matta APRN, C.N.P., M.S.N. [address] [place] [phone] 05/29/2022 Office Visit Otorhinolaryngology Nadeem Maradiaga, PMaryanne., M.S. [address] [place] [phone] 05/31/2022 Appointment Radiology Guilherme Matt, RASTA, Jennifer., M.S. [address] [place] [phone] 06/05/2022 Appointment Laboratory Medicine Angélica Granger P.A.-C. [address] [place] [phone] 06/19/2022 Appointment Laboratory Medicine Angélica Granger P.A.-C. [address] [place] [phone] 07/03/2022 Appointment Laboratory Medicine Angélica Granger P.A.-C. [address] [place] [phone] 07/17/2022 Appointment Laboratory Medicine Angélica Granger P.A.-C. [address] [place] [phone] 07/31/2022 Appointment Laboratory Medicine Angélica Granger P.A.-C. [address] [place] [phone] 08/14/2022 Appointment Laboratory Medicine Angélica Granger P.A.-C. [address] [place] [address] [phone] 08/28/2022 Appointment Laboratory Medicine Angélica Granger P.A.-C. [address] [place] [phone] documented as of this encounter Visit Diagnoses Not on filedocumented in this encounter Additional Health Concerns Assessment Noted Time PHQ-9 Depression Total Score: 4 11/28/2020 10:17 AM CD T documented as of this encounter Care Teams Time Signal Wirer Relationship Specialty Start Date End Date Elsewhere, Pcp PCP - General Family Medicine 07/29/17 [facility] - Laboratory Medicine 04/12/[address] [address] documented as of this encounter
--- OUTSIDE RECORDS SUMMARY | 2022-05-17 18:19 | XMS_ITS | Encounter Summary ---
:[address] [facility] Address [address] [place] [address] Care Team Providers Name Role Phone Elsewhere, Pcp Primary Care Provider Unavailable Encounter Details Date Type Department Care Team Description 01/30/2022 Hospital Encounter Department of Angélica Granger ant Liver (HCC); Laboratory Medicine J PDemetriusADurgaC. 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 valGANciclovir (VALCYTE) Take 1 tablet (450 45 tablet 0 12/202103/27/2022 450 mg mg total) by mouth tabletIndications: every other day. Transplant Liver ([facility]), take every 48 hours Medication Therapy Long [...] capsuleIndications: mouth 2 (two) times Transplant Liver ([facility]), a day. Do not Infection break, cut, or open Cytomegalovirus (HCC), capsules. Medication Therapy Mcc Not Anticoagulant NIFEdipine XL (PROCARDIA Take 60 mg by mouth 0 04/29/2022 XL) 30 mg 24 hr tablet daily. tacrolimus (PROGRAF) 0.5 Take 1 capsule (0.5 90 capsule 3 03/15/2022 mg capsuleIndications: mg total) by mouth Transplant Liver ([facility]), daily. Medication Therapy Mcc Not Anticoagulant torsemide (DEMADEX) 10 Take 3 tablets (30 60 tablet 1 10/1701/31/2022 mg tablet mg total) by mouth daily. documented as of 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 [address] [place] [phone] 05/23/2022 Clinical Admitting/Central Communication Scheduling 05/27/2022 Comprehensive Visit Orthopedic Surgery Markus Sams M.D., Ph.D. [address] [place] [phone] 05/29/2022 Office Visit Otorhinolaryngology Dex Matta APRN, C.N.P., M.S.N. [address] [place] [address] [phone] 05/29/2022 Office Visit Otorhinolaryngology Nadeem Maradiaga, Jennifer., M.S. [address] [place] [phone] 05/31/2022 Appointment Radiology Guilherme Matt MPAS, Jennifer., M.S. [address] [place] [phone] 06/05/2022 Appointment Laboratory Medicine Angélica Granger P.A.-C. [address] [place] [phone] 06/19/2022 Appointment Laboratory Medicine Angélica Granger P.A.-C. [address] [place] [address] [phone] 07/03/2022 Appointment Laboratory Medicine Angélica Granger P.A.-C. [address] [place] [phone] 07/17/2022 Appointment Laboratory Medicine Angélica Granger P.A.-C. [address] [place] [phone] 07/31/2022 Appointment Laboratory Medicine Angélica Granger P.A.-C. [address] [place] [phone] 08/14/2022 Appointment Laboratory Medicine Angélica Granger P.A.-C. [address] [place] [phone] 08/28/2022 Appointment Laboratory Medicine Angélica rGanger P.A.-C. [address] [place] [phone] documented as of this encounter Procedures Procedure [...] Mcc Not section. Anticoagulant CBC WITHOUT Routine 01/30/2022 8:04 Transplant Liver Results for this DIFFERENTIAL, B AM CDT (HCC) procedure are in Medication Therapy the resul ts [place] Hammerer Not section. Anticoagulant GLUCOSE, FASTING, S/P Routine 01/30/2022 8:04 Transplant Liver Results for this AM CDT (HCC) procedure are in Medication Therapy the resul ts [place] Hammerer Not section. Anticoagulant COMPREHENSIVE Routine 01/30/2022 8:04 [...] its performa nce characteristics determined by [facility] in a manner consistent with CLIA requirements. This test has not been cleared or approved by the U.S. Mer d and Drug Administration. Specimen Anatomical Collection Method Collection Time Receive d Time (Source) Location / / Volume Laterality Blood (Blood, 01/30/2022 8:04 AM 02/01/20 22 7:39 Venous) CDT AM CDT Angélica Granger P.A.-C. LAB BLOOD NON ADD-ON Performing Organization Address [facility] Phon e Number [address] CHIDI Santamaria[address] [place] [address] Laboratory Medicine and Pathology [address] [place] [address] Dr. MURILLO CMV DNA Detect / Quant, Plasma (01/30/2022 8:04 AM CDT) [facility] Method Time Signature CMV DNA Undetected Undetected 01/31/2022 [facility] Detect/Quant, IU/mL 2:38 PM CDT P Comment: Result in log IU/mL is Undetected. ----ADDITIONAL INFORMATION---- The quantification range of this assay i s 35 to 10,000,000 IU/mL (1.54 log to 7.00 log IU/mL). Testing was performed u sing the tika CMV test ([employer] with the tika 6800 System. Specimen Anatomical Collection Method Collection Time Receive d Time (Source) Location / / Volume Laterality Blood (Blood, 01/30/2022 8:04 AM 02/01/20 22 7:07 Venous) CDT AM CDT Angélica Granger P.A.-C. LAB MICROBIOLOGY - BLOOD ORD ERABLES Performing Organization Address [facility] Phon e Number [place] [id number] CHIDI Santamaria [facility] 05 [facility] [place] [address] Laboratory Medicine and Pathology [address] MURILLO (ABNORMAL) Glucose, Fasting (01/30/2022 8:04 [...] Organization Address City/State/ZIP Code Phon e Number [address] [address] [place] [address] [address] (ABNORMAL) Comprehensive Metabolic Panel (01/30/2022 8:04 [...] eGFR-Black/Afri <15 (L) >=60 01/30/2022 [facility] can [place] mL/min/BSA 8:36 AM CDT Comment: ----ADDITIONAL INFORMATION---- Estimated GFR calculated using the 2009 CKD_EPI creatinine equation. eGFR Non-Black/ <15 (L) >=60 mL/min/BSA 01/30/2022 8:36 AM CDT [facility] [place] Comment: ----ADDITIONAL INFORMATION---- Estimated GFR calculated using [...] Organization Address City/State/ZIP Code Phon e Number [facility]- [address] [place] [address] [place] [address] [address] (ABNORMAL) CBC without Differential (01/30/2022 8:04 AM CDT) [facility] gist Method Time Signature Hemoglobin 11.2 (L) [...] Organization Address City/State/ZIP Code Phon e Number [facility]- [address] [place] [id number] [place] [address] [place] [address] System in [address] documented in this encounter Visit Diagnoses Diagnosis Transplant Liver (HCC) Medication Therapy [place] Hammerer Not Anticoa gulant documented in this encounter Additional Health Concerns Assessment Noted Time PHQ-9 Depression Total Score: 4 11/28/2020 10:17 AM CD T documented as of this encounter Care Teams Veneer Manufacturer Relationship Specialty Start Date End Date Elsewhere, Pcp PCP - General Family Medicine 07/29/17 [facility] - Laboratory Medicine 04/12/20 [place] [address] documented as of this encounter
--- OUTSIDE RECORDS SUMMARY | 2022-05-17 18:19 | XMS_ITS | Encounter Summary ---
:1955 Author Organization [facility] Address [address] [place] [address] Care Team Providers Name Role Phone Elsewhere, Pcp Primary Care Provider Unavailable Encounter Details Date Type Department Care Team Description 01/25/2022 Clinical Communication Irena Gamez [facility] for R, R.N. 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 - 01/25/2022 2:39 PM CDT Provider who reviewed results: Trung Plasencia Recommendations: Stop Bactrim when current supply runs out. Labs are due: 1 week Patient Online Services message was initiated by a [facility] Registered Nurse for report of test results [...] Laboratory Medicine Angélica Granger P.A.-C. [address] [place] [phone] 05/23/2022 Clinical Admitting/Central Communication Scheduling 05/27/2022 Comprehensive Visit Orthopedic Surgery Markus Sams M.D., Ph.D. [address] [place] [phone] 05/29/2022 Office Visit Otorhinolaryngology Dex Matta APRN, C.N.P., M.S.N. [address] [place] [phone] 05/29/2022 Office Visit Otorhinolaryngology Nadeem Maradiaga, PMaryanne., M.S. [address] [place] [phone] 05/31/2022 Appointment Radiology Guilherme Matt, RASTA, PMaryanne., M.S. [address] [place] [phone] 06/05/2022 Appointment Laboratory Medicine Angélica Granger P.A.-C. [address] [place] [phone] 06/19/2022 Appointment Laboratory Medicine Angélica Granger P.A.-C. [address] [place] [phone] 07/03/2022 Appointment Laboratory Medicine Angélica Granger P.A.-C. [address] [place] [phone] 07/17/2022 Appointment Laboratory Medicine Angélica Granger P.A.-C. [address] [place] [phone] 07/31/2022 Appointment Laboratory Medicine Angélica Granger P.A.-C. [address] [place] [phone] 08/14/2022 Appointment Laboratory Medicine Angélica Granger P.A.-C. [address] [place] [phone] 08/28/2022 Appointment Laboratory Medicine Angélica Granger P.A.-C. [address] [place] [phone] documented as of this encounter Visit Diagnoses Not on filedocumented in this encounter Additional Health Concerns Assessment Noted Time PHQ-9 Depression Total Score: 4 11/28/2020 10:17 AM CD T documented as of this encounter Care Teams Occasional Babysitter Relationship Specialty Start Date End Date Elsewhere, Pcp PCP - General Family Medicine 07/29/17 [facility] - Laboratory Medicine 04/12/[address] [address] documented as of this encounter
--- OUTSIDE RECORDS SUMMARY | 2022-05-17 18:19 | XMS_ITS | Encounter Summary ---
:1955 Author Organization [facility] Address [address] [place] [address] Care Team Providers Name Role Phone Elsewhere, Pcp Primary Care Provider Unavailable Encounter Details Date Type Department Care Team Description 02/06/2022 Hospital Encounter Department of Angélica Granger ant Liver (HCC); Laboratory Medicine Leena PDemetriusADurgaC. 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 Transplant Liver ([facility]), take every 48 hours Medication Therapy Long after dialysis Term Not Anticoagulant, Infection Cytomegalovirus ([facility]) budesonide (PULMICORT) ADD 1 RESPULE TO 8 [...] 2 (two) times Transplant Liver ([facility]), a day. Do not Infection break, cut, or open Cytomegalovirus ([facility]), capsules. Medication Therapy Mcfp Not Anticoagulant NIFEdipine XL (PROCARDIA Take 60 mg by mouth 0 04/29/2022 XL) 30 mg 24 hr tablet daily. tacrolimus (PROGRAF) 0.5 Take 1 capsule (0.5 90 capsule 3 03/15/2022 mg capsuleIndications: mg total) by mouth Transplant Liver ([facility]), daily. Medication Therapy Mcfp Not Anticoagulant documented as of 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 [address] [place] [phone] 05/23/2022 Clinical Admitting/Central Communication Scheduling 05/27/2022 Comprehensive Visit Orthopedic Surgery Markus Sams M.D., Ph.D. [address] [place] [phone] 05/29/2022 Office Visit Otorhinolaryngology Dex Matta APRN, C.N.P., M.S.N. [address] [place] [phone] 05/29/2022 Office Visit Otorhinolaryngology Nadeem Maradiaga, Jennifer., M.S. [address] [place] [phone] 05/31/2022 Appointment Radiology Guilherme Matt MPAS, Edmundo, M.S. [address] [place] [phone] 06/05/2022 Appointment Laboratory Medicine Angélica Granger P.A.-C. [address] [place] [phone] 06/19/2022 Appointment Laboratory Medicine Angélica Granger P.A.-C. [address] [place] [phone] 07/03/2022 Appointment Laboratory Medicine Angélica Granger P.A.-C. [address] [place] [phone] 07/17/2022 Appointment Laboratory Medicine Angélica Granger P.A.-C. [address] [place] [phone] 07/31/2022 Appointment Laboratory Medicine Angélica Granger P.A.-C. [address] [place] [phone] 08/14/2022 Appointment Laboratory Medicine Angélica Granger P.A.-C. [address] [place] [phone] 08/28/2022 Appointment Laboratory Medicine Angélica Granger P.A.-C. [address] [place] [phone] documented as of this encounter Procedures Procedure Name Priority Date/Time Associated Diagnosis Comme nts CMV DNA DETECT/QUANT, Routine 02/06/2022 8:06 Transplant Liver Results for this P AM CDT (HCC) procedure are in Medication Therapy the resul ts Mcfp Not section. Anticoagulant TACROLIMUS LEVEL, B Routine 02/06/2022 8:06 Transplant Liver R esults for this AM CDT (HCC) procedure are in Medication Therapy the resul ts Hand Former Not section. Anticoagulant CBC WITHOUT Routine 02/06/2022 8:06 Transplant Liver Results for this DIFFERENTIAL, B AM CDT (HCC) procedure are in Medication Therapy the resul ts Hand Former Not section. Anticoagulant GLUCOSE, FASTING, S/P Routine 02/06/2022 8:06 Transplant Liver Results for this AM CDT (HCC) procedure are in Medication Therapy the resul ts Mcfp Not section. Anticoagulant COMPREHENSIVE Routine 02/06/2022 8:06 Transplant Liver Results for this METABOLIC PANEL, S/P AM CDT (HCC) procedure are in Medication Therapy the resul ts Hand Former Not section. Anticoagulant documented in this encounter [...] performa nce characteristics determined by [facility] in a manner consistent with CLIA requirements. This test has not been cleared or approved by the U.S. Mer d and Drug Administration. Specimen Anatomical Collection Method Collection Time Receive d Time (Source) Location / / Volume Laterality Blood (Blood, 02/06/2022 8:06 AM 02/08/20 22 7:29 Venous) CDT AM CDT Angélica Granger P.A.-C. LAB BLOOD NON ADD-ON Performing Organization Address City/State/ZIP Code Phon e Number [facility] [address] [place], [place] [address] SUPPORT CENTER [facility] [place] [address] Laboratory Medicine and Pathology [address] [place] (ABNORMAL) CMV DNA Detect / Quant, Plasma (02/06/2022 8:06 AM CDT) [facility] Method Time Signature CMV DNA <35 (A) Undetected 02/07/2022 [facility] Detect/Quant, IU/mL 4:06 PM CDT P Comment: [...] u sing the tika CMV test ([employer] with the tika [id number] System. Specimen Anatomical Collection Method Collection Time Receive d Time (Source) Location / / Volume Laterality Blood (Blood, 02/06/2022 8:06 AM 02/08/20 22 7:50 Venous) CDT AM CDT Angélica J Gunneson P.A.-C. LAB MICROBIOLOGY - BLOOD ORD ERABLES Performing Organization Address City/State/ZIP Code Phon e Number [facility] [address] [place], [place] [address] SUPPORT CENTER [facility] [place] [address] Laboratory Medicine and Pathology [address] [...] Address City/[facility] Phon e Number [address] [address] [place] [address] [address] (ABNORMAL) Comprehensive Metabolic Panel (02/06/2022 8:06 [...] eGFR-Black/Afri 20 (L) >=60 02/06/2022 CN[facility] can [place] mL/min/BSA 8:45 AM CDT Comment: ----ADDITIONAL INFORMATION---- Estimated GFR calculated using the 2009 CKD_EPI creatinine equation. eGFR Non-Black/ 17 (L) >=60 mL/min/BSA 02/06/2022 8:45 AM CDT [facility] [place] Comment: ----ADDITIONAL INFORMATION---- Estimated GFR calculated using [...] Code Phon e Number [facility]- [address] [place] [address] [place] [address] System [address] (ABNORMAL) CBC without Differential (02/06/2022 8:06 AM CDT) [facility] gist Method Time Signature Hemoglobin 11.7 (L) [...] Address City/State/[facility] Code Phon e Number [facility]- [address] [place] [address] [place] [address] System [address] documented in this encounter Visit Diagnoses Diagnosis Transplant Liver (HCC) Medication Therapy Hand Former Not Anticoa gulant documented in this encounter Additional Health Concerns Assessment Noted Time PHQ-9 Depression Total Score: 4 11/28/2020 10:17 AM CD T documented as of this encounter Care Teams Moto Mix Operator Relationship Specialty Start Date End Date Elsewhere, Pcp PCP - General Family Medicine 07/29/17 [facility] - Laboratory Medicine 04/12/[address] [address] documented as of this encounter
--- OUTSIDE RECORDS SUMMARY | 2022-05-17 18:19 | XMS_ITS | Encounter Summary ---
:1955 Author Organization [facility] Address [address] [place] [address] Care Team Providers Name Role Phone Elsewhere, Pcp Primary Care Provider Unavailable Reason for Visit Reason Comments Labs Only Encounter Details Date Type Department Care Team Description 02/08/2022 Clinical Communication Irena Gamez [facility] Labs Only Center for R, R.N. 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 *All labs are now found in [facility] - Lab - Flowsheets. For further review of labs, please review there or under Synopsis* documented in 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 [address] [place] [phone] 05/23/2022 Clinical Admitting/Central Communication Scheduling 05/27/2022 Comprehensive Visit Orthopedic Surgery Markus Sams M.D., Ph.D. [address] [place] [phone] 05/29/2022 Office Visit Otorhinolaryngology Dex Matta, RAMONA, C.N.P., M.S.N. [address] [place] [phone] 05/29/2022 Office Visit Otorhinolaryngology Nadeem Maradiaga, PEdgar.-Arley., M.S. [address] [place] [phone] 05/31/2022 Appointment Radiology Guilherme Matt MPAS, Jennifer., M.S. [address] [place] [phone] 06/05/2022 Appointment Laboratory Medicine Angélica Granger P.A.-C. [address] [place] [phone] 06/19/2022 Appointment Laboratory Medicine Angélica Granger P.A.-C. [address] [place] [phone] 07/03/2022 Appointment Laboratory Medicine Angélica Granger P.A.-C. [address] [place] [phone] 07/17/2022 Appointment Laboratory Medicine Angélica Granger P.A.-C. [address] [place] [phone] 07/31/2022 Appointment Laboratory Medicine Angélica Granger P.A.-C. [address] [place] [phone] 08/14/2022 Appointment Laboratory Medicine Angélica Granger P.A.-C. [address] [place] [phone] 08/28/2022 Appointment Laboratory Medicine Angélica Granger P.A.-C. [address] [place] [phone] documented as of this encounter Visit Diagnoses Not on filedocumented in this encounter Additional Health Concerns Assessment Noted Time PHQ-9 Depression Total Score: 4 11/28/2020 10:17 AM CD T documented as of this encounter Care Teams Electrical Troubleshooter Relationship Specialty Start Date End Date Elsewhere, Pcp PCP - General Family Medicine 07/29/17 [facility] - Laboratory Medicine 04/12/20 [place] [phone] documented as of this encounter
--- OUTSIDE RECORDS SUMMARY | 2022-05-17 18:19 | XMS_ITS | Encounter Summary ---
:1955 Author Organization [facility] Address [address] [place] [address] Care Team Providers Name Role Phone Elsewhere, Pcp Primary Care Provider Unavailable Encounter Details Date Type Department Care Team Description 01/31/2022 Orders Only Division of Nephrology and Elissa Wilcox A PRN, Hypertension, Temple C.N.P. [place], in [place], [address] [place] [address] [place] [phone] [place] [phone] [phone] Social History Tobacco Use Types Packs/Day Years [...] Laboratory Medicine Angélica Granger P.A.-C. [address] [place] [phone] 05/23/2022 Clinical Admitting/Central Communication Scheduling 05/27/2022 Comprehensive Visit Orthopedic Surgery Markus Sams M.D., Ph.D. [address] [place] [phone] 05/29/2022 Office Visit Otorhinolaryngology Dex Matta, RAMONA, C.N.P., M.S.N. [address] [place] [phone] 05/29/2022 Office Visit Otorhinolaryngology Nadeem Maradiaga, P.Murtaza.-Arley., M.S. [address] [place] [address] [phone] 05/31/2022 Appointment Radiology Guilherme Matt MPAS, Jennifer., M.S. [address] [place] [address] [phone] 06/05/2022 Appointment Laboratory Medicine Angélica Granger P.A.-C. [address] [place] [phone] 06/19/2022 Appointment Laboratory Medicine Angélica Granger P.A.-C. [address] [place] [phone] 07/03/2022 Appointment Laboratory Medicine Angélica Granger P.A.-C. [address] [place] [phone] 07/17/2022 Appointment Laboratory Medicine Angélica Granger P.A.-C. [address] [place] [phone] 07/31/2022 Appointment Laboratory Medicine Angélica Granger P.A.-C. [address] [place] [phone] 08/14/2022 Appointment Laboratory Medicine Angélica Granger P.A.-C. [address] [place] [phone] 08/28/2022 Appointment Laboratory Medicine Angélica Granger P.A.-C. [address] [place] [phone] documented as of this encounter Visit Diagnoses Not on filedocumented in this encounter Additional Health Concerns Infection Onset Date Last Indicated Resolved Time COVID19 Pending 02/04/2022 02/04/2022 02/05/2022 2:30 PM CDT Assessment Noted Time PHQ-9 Depression Total Score: 4 11/28/2020 10:17 AM CD T documented as of this encounter Care Teams Sustainable Communities Designer Relationship Specialty Start Date End Date Elsewhere, Pcp PCP - General Family Medicine 07/29/17 [facility] - Laboratory Medicine 04/12/20 [place] [phone] documented as of this encounter
--- OUTSIDE RECORDS SUMMARY | 2022-05-17 18:19 | XMS_ITS | Encounter Summary ---
:1955 Author Organization [facility] Address [address] [place] [address] Care Team Providers Name Role Phone Elsewhere, Pcp Primary Care Provider Unavailable Reason for Visit Reason Comments Med Refill Encounter Details Date Type Department Care Team Description 02/04/2022 Refill Department of Otorhinolaryngology Patricia Griggs Med Refill in [facility] jose Gordon M.D. 200 [facility] [address] [place] [address] [place], [place] [phone] (Wo rk) Social History Tobacco Use Types [...] or the highest technical, or vocational p StreamStarram degree you have received? 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 [address] [place] [phone] 05/23/2022 Clinical Admitting/Central Communication Scheduling 05/27/2022 Comprehensive Visit Orthopedic Surgery Markus Sams M.D., Ph.D. [address] [place] [phone] 05/29/2022 Office Visit Otorhinolaryngology Dex Matta, RAMONA, C.N.P., M.S.N. [address] [place] [phone] 05/29/2022 Office Visit Otorhinolaryngology Nadeem Maradiaga, P.A.-C., M.S. [address] [place] [phone] 05/31/2022 Appointment Radiology Guilherme Matt MPAS, P.Murtaza.Marie., M.S. [address] [place] [phone] 06/05/2022 Appointment Laboratory Medicine Angélica Granger P.A.-C. [address] [place] [phone] 06/19/2022 Appointment Laboratory Medicine Angélica Granger P.A.-C. [address] [place] [phone] 07/03/2022 Appointment Laboratory Medicine Angélica Granger P.A.-C. [address] [place] [phone] 07/17/2022 Appointment Laboratory Medicine Angélica Granger P.A.-C. [address] [place] [address] [phone] 07/31/2022 Appointment Laboratory Medicine Angélica Granger P.A.-C. [address] [place] [phone] 08/14/2022 Appointment Laboratory Medicine Angélica Granger P.A.-C. [address] [place] [phone] 08/28/2022 Appointment Laboratory Medicine Angélica Granger P.A.-C. [address] [place] [phone] documented as of this encounter Visit Diagnoses Not on filedocumented in this encounter Additional Health Concerns Infection Onset Date Last Indicated Resolved Time COVID19 Pending 02/04/2022 02/04/2022 02/05/2022 2:30 PM CDT Assessment Noted Time PHQ-9 Depression Total Score: 4 11/28/2020 10:17 AM CD T documented as of this encounter Care Teams Saddle And Harness Maker Relationship Specialty Start Date End Date Elsewhere, Pcp PCP - General Family Medicine 07/29/17 [facility] - Laboratory Medicine 04/12/20 [place] [phone] documented as of this encounter
--- OUTSIDE RECORDS SUMMARY | 2022-05-17 18:19 | XMS_ITS | Encounter Summary ---
:1955 Author Organization [facility] Address [address] [place] [address] Care Team Providers Name Role Phone Elsewhere, Pcp Primary Care Provider Unavailable Encounter Details Date Type Department Care Team Description 02/13/2022 Hospital Encounter Department of Angélica Granger ant Liver (HCC); Laboratory Medicine J PDemetriusADurgaC. 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 200-62.5-25 mcg inhaler mycophenolate (CELLCEPT) Take 2 capsules 360 capsule 3 10/1902/15/2022 250 mg (500 mg total) by capsuleIndications: mouth 2 (two) times Transplant Liver (HCC), a day. Do not Infection break, cut, or open Cytomegalovirus (HCC), capsules. Medication Therapy Program Instructor Not Anticoagulant NIFEdipine XL (PROCARDIA Take 60 mg by mouth 0 04/29/2022 XL) 30 mg 24 hr tablet daily. tacrolimus (PROGRAF) 0.5 Take 1 capsule (0.5 90 capsule 3 03/15/2022 mg capsuleIndications: mg total) by mouth Transplant Liver (HCC), daily. Medication Therapy Detention Not Anticoagulant documented as of 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 [address] [place] [phone] 05/23/2022 Clinical Admitting/Central Communication Scheduling 05/27/2022 Comprehensive Visit Orthopedic Surgery Markus Sams M.D., Ph.D. [address] [place] [phone] 05/29/2022 Office Visit Otorhinolaryngology Dex Matta APRN, C.N.P., M.S.N. [address] [place] [phone] 05/29/2022 Office Visit Otorhinolaryngology Nadeem Maradiaga, PMaryanne., M.S. [address] [place] [phone] 05/31/2022 Appointment Radiology Guilherme Matt MPAS, PMaryanne., M.S. [address] [place] [address] [phone] 06/05/2022 Appointment Laboratory Medicine Angélica Granger P.A.-C. [address] [place] [phone] 06/19/2022 Appointment Laboratory Medicine Angélica Granger P.A.-C. [address] [place] [address] [phone] 07/03/2022 Appointment Laboratory Medicine Angélica Granger P.A.-C. [address] [place] [phone] 07/17/2022 Appointment Laboratory Medicine Angélica Granger P.A.-C. [address] [place] [phone] 07/31/2022 Appointment Laboratory Medicine Angélica Granger P.A.-C. [address] [place] [address] [phone] 08/14/2022 Appointment Laboratory Medicine Angélica Granger P.A.-C. [address] [place] [address] [phone] 08/28/2022 Appointment Laboratory Medicine Angélica Granger P.A.-C. [address] [place] [phone] documented as of this encounter Procedures Procedure Name Priority Date/Time Associated Diagnosis Comme nts TACROLIMUS LEVEL, B Routine 02/13/2022 7:47 Transplant Liver R esults for this AM CDT (HCC) procedure are in Medication Therapy the resul ts Detention Not section. Anticoagulant CBC WITHOUT Routine 02/13/2022 7:47 Transplant Liver Results for this DIFFERENTIAL, B AM CDT (HCC) procedure are in Medication Therapy the resul ts Program Instructor Not section. Anticoagulant GLUCOSE, FASTING, S/P Routine 02/13/2022 7:47 Transplant Liver Results for this AM CDT (HCC) procedure are in Medication Therapy the resul ts Program Instructor Not section. Anticoagulant COMPREHENSIVE Routine 02/13/2022 7:47 Transplant Liver Results for this METABOLIC PANEL, S/P AM CDT (HCC) procedure are in Medication Therapy the resul ts Detention Not section. Anticoagulant CMV DNA DETECT/QUANT, Routine 02/13/2022 7:46 Transplant Liver Results for this P AM CDT (HCC) procedure are in Medication Therapy the resul ts Detention Not section. Anticoagulant documented in this encounter Results (ABNORMAL) Tacrolimus, B (02/13/2022 7:47 AM CDT) athologist Signature Tacrolimus, B 1.2 (L) 5.0-15.0 02/14/2022 [facility] (Trough) 2:18 PM CDT ng/mL Comment: ----ADDITIONAL [...] BLOOD NON ADD-ON Performing Organization Address City/[facility]/ZIP Code Phon e Number [facility] [address] [place] [address] [place] [address] Laboratory Medicine and Pathology [address] [place] (ABNORMAL) Glucose, Fasting (02/13/2022 7:47 [...] HEALTH CARE SERVICES Code Phon e Number [address] [address] [place] [place] [address] System in [address] (ABNORMAL) Comprehensive Metabolic Panel (02/13/2022 7:47 [...] P.A.-C. LAB BLOOD ADD-ON Performing Organization Address [facility] Phon e Number [address] [address] [facility] [place] [address] System [address] (ABNORMAL) CBC without Differential (02/13/2022 7:47 AM CDT) [facility] gist Method Time Signature Hemoglobin 11.4 (L) [...] P.A.-C. LAB BLOOD ADD-ON Performing Organization Address City/State/[facility] Phon e Number [address] [address] [facility] [place] [address] System in [place] [address] [address] CMV DNA Detect / Quant, Plasma (02/13/2022 7:46 AM CDT) [facility] gist Method Time Signature CMV DNA Undetected Undetected 02/15/2022 [facility] Detect/Quant, IU/mL 6:53 PM CDT P Comment: Result in log IU/mL is Undetected. ----ADDITIONAL INFORMATION---- The quantification range of this assay i s 35 to 10,000,000 IU/mL (1.54 log to 7.00 log IU/mL). Testing was performed u sing the tika CMV test ([employer] with the tika [id number] System. Specimen Anatomical Collection Method Collection Time Receive d Time (Source) Location / / Volume Laterality Blood (Blood, 02/13/2022 7:46 AM 02/15/20 7:43 Venous) CDT AM CDT Angélica Granger P.A.-C. LAB MICROBIOLOGY - BLOOD ORD ERABLES Performing Organization Address City/State/ZIP Code Phon e Number [facility] [address] [place] [address] SUPPORT CENTER [facility] [place] [address] Laboratory Medicine and Pathology [address] [place] documented in this encounter Visit Diagnoses Diagnosis Transplant Liver (HCC) Medication Therapy Detention Not Anticoa gulant documented in this encounter Additional Health Concerns Assessment Noted Time PHQ-9 Depression Total Score: 4 11/28/2020 10:17 AM CD T documented as of this encounter Care Teams Dealer Analyst Relationship Specialty Start Date End Date Elsewhere, Pcp PCP - General Family Medicine 07/29/17 [facility] - Laboratory Medicine 04/12/[address] [address] documented as of this encounter
--- OUTSIDE RECORDS SUMMARY | 2022-05-17 18:19 | XMS_ITS | Encounter Summary ---
:1955 Author Organization [facility] Address [address] [place] [address] Care Team Providers Name Role Phone Elsewhere, Pcp Primary Care Provider Unavailable Reason for Visit Reason Comments Tacrolimus Adjustment Protocol Liver Encounter Details Date Type Department Care Team Description 02/01/2022 Clinical Anastasia [facility] for L, R.N., Adjustment Transplantation and C.C.T.C. 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 Anastasia Rasheed R.N., Arley.DelorisC. *All labs are now found in [facility] - Lab - Flowsheets. For further review of labs, please review there or under Synopsis* documented in 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 [address] [place] [address] [phone] 05/23/2022 Clinical Admitting/Central Communication Scheduling 05/27/2022 Comprehensive Visit Orthopedic Surgery Markus Sams M.D., Ph.D. [address] [place] [phone] 05/29/2022 Office Visit Otorhinolaryngology Dex Matta APRN, C.N.P., M.S.N. [address] [place] [address] [phone] 05/29/2022 Office Visit Otorhinolaryngology Nadeem Maradiaga, PEdgar.-C., M.S. [address] [place] [phone] 05/31/2022 Appointment Radiology Guilherme Matt, RASTA, PEdgar.Marie., M.S. [address] [place] [phone] 06/05/2022 Appointment Laboratory Medicine Angélica Granger P.A.-C. [address] [place] [phone] 06/19/2022 Appointment Laboratory Medicine Angélica Granger P.A.-C. [address] [place] [phone] 07/03/2022 Appointment Laboratory Medicine Angélica Granger P.A.-C. [address] [place] [phone] 07/17/2022 Appointment Laboratory Medicine Angélica Granger P.A.-C. [address] [place] [phone] 07/31/2022 Appointment Laboratory Medicine Angélica Granger P.A.-C. [address] [place] [phone] 08/14/2022 Appointment Laboratory Medicine Angélica Granger P.A.-C. [address] [place] [address] [phone] 08/28/2022 Appointment Laboratory Medicine Angélica Granger P.A.-C. [address] [place] [phone] documented as of this encounter Visit Diagnoses Not on filedocumented in this encounter Additional Health Concerns Assessment Noted Time PHQ-9 Depression Total Score: 4 11/28/2020 10:17 AM CD T documented as of this encounter Care Teams Mimeographer Relationship Specialty Start Date End Date Elsewhere, Pcp PCP - General Family Medicine 07/29/17 [facility] - Laboratory Medicine 04/12/[address] [address] documented as of this encounter
--- OUTSIDE RECORDS SUMMARY | 2022-05-17 18:19 | XMS_ITS | Encounter Summary ---
:1955 Author Organization [facility] Address [address] [place] [address] Care Team Providers Name Role Phone Elsewhere, Pcp Primary Care Provider Unavailable Reason for Visit Outpatient (Routine) - Closed Specialty Diagnoses / Procedures Referred By Contact Refer red To Contact Pulmonary Medicine Diagnoses Transplant Liver (HCC) Medication Therapy Custodial Not Anticoagulant Screening Examination Skin Cancer Dialysis Dependent (HCC) Screening Examination Prostate Cancer Nodules Pulmonary Multiple Yusuf Umanzor [facility] Sada, M.P.H. [address] [place] [address] Referral ID Status Reason Start Date Expiration Date Visits Requ ested Visits Authorized [id number] Closed 12/26/2021 12/26/2022 1 1 Encounter Details Date Type Department Care Team Description 02/07/2022 Office Visit Division of Pulmonary Connie Aaron Tr ansplant Liver (HCC); Medicine in E, M.B.B.[facility]. 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 Has had several dialysis sessions since then with improvement in leg swelling but continues with cough and shortness of breath. Stopped using Symbicort a while ago. [place] better with steroids backin September. Continues with [...] Laboratory Medicine Angélica Granger P.A.-C. [address] [place] [address] [phone] 05/23/2022 Clinical Admitting/Central Communication Scheduling 05/27/2022 Comprehensive Visit Orthopedic Surgery Markus Sams M.D., Ph.D. [address] [place] [phone] 05/29/2022 Office Visit Otorhinolaryngology Dex Matta APRN, C.N.P., M.S.N. [address] [place] [address] [phone] 05/29/2022 Office Visit Otorhinolaryngology Nadeem Maradiaga P.A.-C., M.S. [address] [place] [address] [phone] 05/31/2022 Appointment Radiology Guilherme Matt MPAS, Edmundo, M.S. [address] [place] [address] [phone] 06/05/2022 Appointment Laboratory Medicine Angélica Granger P.A.-C. [address] [place] [phone] 06/19/2022 Appointment Laboratory Medicine Angélica Granger P.A.-C. [address] [place] [phone] 07/03/2022 Appointment Laboratory Medicine Angélica Granger P.A.-C. [address] [place] [phone] 07/17/2022 Appointment Laboratory Medicine Angélica Granger P.A.-C. [address] [place] [phone] 07/31/2022 Appointment Laboratory Medicine Angélica Granger P.A.-C. [address] [place] [phone] 08/14/2022 Appointment Laboratory Medicine Angélica Granger P.A.-C. [address] [place] [phone] 08/28/2022 Appointment Laboratory Medicine Angélica Granger P.A.-C. [address] [place] [phone] documented as of this encounter Visit Diagnoses Diagnosis Transplant Liver (HCC) Medication Therapy Flat Polisher Not Anticoa gulant Screening Examination Skin Cancer Dialysis Dependent (HCC) Screening Examination Prostate Cancer Nodules Pulmonary Multiple documented in this encounter Additional Health Concerns Assessment Noted Time PHQ-9 Depression Total Score: 4 11/28/2020 10:17 AM CD T documented as of this encounter Care Teams County Administrator Relationship Specialty Start Date End Date Elsewhere, Pcp PCP - General Family Medicine 07/29/17 [facility] - Laboratory Medicine 04/12/20 [place] [address] documented as of this encounter
--- OUTSIDE RECORDS SUMMARY | 2022-05-17 18:19 | XMS_ITS | Encounter Summary ---
:1955 Author Organization [facility] Address [address] [place] [address] Care Team Providers Name Role Phone Elsewhere, Pcp Primary Care Provider Unavailable Encounter Details Date Type Department Care Team Description 01/24/2022 Clinical Communication Irena Gamez [facility] for R, R.N. 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 - 01/24/2022 1:51 PM CDT Provider who reviewed results: Dr Reyes Recommendations: No medication changes. Labs are due: 1 week Patient Online Services message was initiated by a [facility] Registered Nurse for report of [...] R.N. *All labs are now found in [facility] - Lab - Flowsheets. For further review of labs, please review there or under Synopsis* documented in 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 [address] [place] [address] [phone] 05/23/2022 Clinical Admitting/Central Communication Scheduling 05/27/2022 Comprehensive Visit Orthopedic Surgery Markus Sams M.D., Ph.D. [address] [place] [phone] 05/29/2022 Office Visit Otorhinolaryngology Dex Matta APRN, C.N.P., M.S.N. [address] [place] [address] [phone] 05/29/2022 Office Visit Otorhinolaryngology Nadeem Maradiaga P.A.Marie., M.S. [address] [place] [address] [phone] 05/31/2022 Appointment Radiology Guilherme Matt MPAS, P.A.-C., M.S. [address] [place] [phone] 06/05/2022 Appointment Laboratory Medicine Angélica Granger P.A.-C. [address] [place] [phone] 06/19/2022 Appointment Laboratory Medicine Angélica Granger P.A.-C. [address] [place] [phone] 07/03/2022 Appointment Laboratory Medicine Angélica Granger P.A.-C. [address] [place] [phone] 07/17/2022 Appointment Laboratory Medicine Angélica Granger P.A.-C. [address] [place] [address] [phone] 07/31/2022 Appointment Laboratory Medicine Angélica Granger P.A.-C. [address] [place] [address] [phone] 08/14/2022 Appointment Laboratory Medicine Angélica Granger P.A.-C. [address] [place] [phone] 08/28/2022 Appointment Laboratory Medicine Angélica Granger P.A.-C. [address] [place] [phone] documented as of this encounter Visit Diagnoses Not on filedocumented in this encounter Additional Health Concerns Assessment Noted Time PHQ-9 Depression Total Score: 4 11/28/2020 10:17 AM CD T documented as of this encounter Care Teams Baller Tender Relationship Specialty Start Date End Date Elsewhere, Pcp PCP - General Family Medicine 07/29/17 [facility] - Laboratory Medicine 04/12/20 [place] [address] documented as of this encounter
--- OUTSIDE RECORDS SUMMARY | 2022-05-17 18:19 | XMS_ITS | Encounter Summary ---
:1955 Author Organization [facility] Address [address] [place] [address] Care Team Providers Name Role Phone Elsewhere, Pcp Primary Care Provider Unavailable Reason for Referral Appointment Request (Routine) - Closed Specialty Diagnoses / Procedures Referred By Contact Refer red To Contact Diagnoses Chronic Obstructive Pulmonary Disease Without Exacerbation (HCC) Connie Aaron, Procedures Pulmonary Function Tests M.B.B.S. 200 [place] [address] Referral ID Status Reason Start Date Expiration Date Visits Requ ested Visits Authorized [id number] Closed 01/31/2022 01/31/2023 1 Encounter Details Date Type Department Care Team Description 01/30/2022 Orders Only [facility] Connie Aaron Chronic Obstructive [address] [facility] David M.B.B.S. 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 [address] [place] [phone] 05/23/2022 Clinical Admitting/Central Communication Scheduling 05/27/2022 Comprehensive Visit Orthopedic Surgery Markus Sams M.D., Ph.D. [address] [place] [phone] 05/29/2022 Office Visit Otorhinolaryngology Dex Matta APRN, C.N.P., M.S.N. [address] [place] [phone] 05/29/2022 Office Visit Otorhinolaryngology Nadeem Maradiaga P.A.-C., M.S. [address] [place] [phone] 05/31/2022 Appointment Radiology Guilherme Matt MPAS, P.A.-C., M.S. [address] [place] [phone] 06/05/2022 Appointment Laboratory Medicine Angélica Granger P.A.-C. [address] [place] [phone] 06/19/2022 Appointment Laboratory Medicine Angélica Granger P.A.-C. [address] [place] [phone] 07/03/2022 Appointment Laboratory Medicine Angélica Granger P.A.-C. [address] [place] [phone] 07/17/2022 Appointment Laboratory Medicine Angélica Granger P.A.-C. [address] [place] [phone] 07/31/2022 Appointment Laboratory Medicine Angélica Granger P.A.-C. [address] [place] [phone] 08/14/2022 Appointment Laboratory Medicine Angélica Granger P.A.-C. [address] [place] [phone] 08/28/2022 Appointment Laboratory Medicine Angélica Granger P.A.-C. [address] [place] [phone] documented as of this encounter Results Pulmonary Function Tests (02/07/2022 1:23 PM CDT) P athologist Signature VC MAX PRE 3.08 L 02/07/2022 [facility] 2:36 PM CDT SU[address] FVC 3.08 L 02/07/2022 [facility] 2:36 PM CDT SUITE FEV1 1.66 L 02/07/2022 [facility] 2:36 PM CDT SUITE FEV1/FVC 54.03 % 02/07/2022 [facility] 2:36 PM CDT SUITE XRO10-41% 0.79 L/s 02/07/2022 [facility] 2:36 PM CDT SUITE PEF PRE 5.42 L/s 02/07/2022 [facility] 2:36 PM CDT SUITE FET PRE 13.93 sec 02/07/2022 [facility] 2:36 PM CDT SUITE DLCO 17.81 ml/(min*mm 02/07/2022 [facility] Hg) 2:36 PM CDT SUITE DLCOc 19.62 ml/(min*mm 02/07/2022 [facility] Hg) 2:36 PM CDT SUITE HB 11.70 g(Hb)/dL 02/07/2022 [facility] 2:36 PM CDT SUITE VA 4.77 L 02/07/2022 [facility] 2:36 PM CDT SUITE [id number] 96.00 % 02/07/2022 [facility] 2:36 PM CDT SUITE PulseRest 96.00 1/min 02/07/2022 [facility] 2:36 PM CDT SUITE [id number] 93.00 % 02/07/2022 [facility] 2:36 PM CDT SUITE PulseExer 116.00 1/min 02/07/2022 [facility] 2:36 PM CDT SUITE EXER TIME 3.00 min 02/07/2022 [facility] 2:36 PM CDT SUITE STEP HEIGHT 9.00 Inch 02/07/2022 [facility] PRE 2:36 PM CDT SUITE TLC 6.90 L 02/07/2022 [facility] 2:36 PM CDT SUITE VC PRE 3.06 L 02/07/2022 [facility] 2:36 PM CDT SUITE FRCPLETH 4.67 L 02/07/2022 [facility]OVBASE 2:36 PM CDT SUITE RV 3.84 L 02/07/2022 [facility] 2:36 PM CDT SUITE RV % TLC PRE 55.68 % 02/07/2022 [facility] 2:36 PM CDT SUITE TLC% 101 % % 02/07/2022 [facility] 2:36 PM CDT SUITE % PRED RV 164 % % 02/07/2022 [facility] 2:36 PM CDT SUITE % PRED VC MAX 74 % % 02/07/2022 [facility] 2:36 PM CDT SUITE FVC% 74 % % 02/07/2022 [facility] 2:36 PM CDT SUITE FEV1% 52 % % 02/07/2022 [facility] 2:36 PM CDT SUITE % PRED 71 % % 02/07/2022 [facility] FEV1/FVC 2:36 PM CDT SUITE % PRED FEF 32 % % 02/07/2022 [facility] 25-75% 2:36 PM CDT SUITE % PRED PEF 67 % % 02/07/2022 [facility] 2:36 PM CDT SUITE DLCO% 70 % % 02/07/2022 [facility] 2:36 PM CDT SUITE DLCOc% 78 % % 02/07/2022 [facility] 2:36 PM CDT SUITE PRED TLC 6.85 02/07/2022 [facility] 2:36 PM CDT SUITE PRED RV 2.34 02/07/2022 [facility] 2:36 PM CDT SUITE PRED VC MAX 4.15 02/07/2022 [facility] 2:36 PM CDT SUITE PRED FVC 4.15 02/07/2022 [facility] 2:36 PM CDT SUITE PRED FEV 1 3.17 02/07/2022 [facility] 2:36 PM CDT SUITE PRED FEV1/FVC 76.6 02/07/2022 [facility] 2:36 PM CDT SUITE PRED FEF 2.49 02/07/2022 [facility] 25-75% 2:36 PM CDT SUITE PRED PEF 8.0 02/07/2022 [facility] 2:36 PM CDT [address] PRED DLCO 25.3 02/07/2022 [facility] 2:36 [address] PRED DLCOc 25.3 02/07/2022 [facility] 2:36 PM CDT SUITE Specimen (Source) Anatomical Collection Method Collection Time Re ceived Time Location / / Volume Laterality 02/07/2022 1:[address] [facility] - 02/07/2022 2:36 PM C DT Abnormal. [...] Organization Address City/State/ZIP Code Phon e Number [facility] NA documented in this encounter Visit Diagnoses Diagnosis Chronic Obstructive Pulmonary Disease Wi thout Exacerbation (HCC) - Primary documented in this encounter Additional Health Concerns Assessment Noted Time PHQ-9 Depression Total Score: 4 11/28/2020 10:17 AM CD T documented as of this encounter Care Teams Water Meter Mechanic Relationship Specialty Start Date End Date Elsewhere, Pcp PCP - General Family Medicine 07/29/17 [facility] - Laboratory Medicine 04/12/20 [place] [address] documented as of this encounter
--- OUTSIDE RECORDS SUMMARY | 2022-05-17 18:20 | XMS_ITS | Encounter Summary ---
:1955 Author Organization [facility] Address [address] [place] [address] Care Team Providers Name Role Phone Elsewhere, Pcp Primary Care Provider Unavailable Reason for Visit Reason Comments Immunizations Encounter Details Date Type Department Care Team Description 01/21/2022 Immunization Section of [place], Nik Minor Immun odeficiency (HCC); Samuel M.D., Ph.D. 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 [address] [place] [phone] 05/23/2022 Clinical Admitting/Central Communication Scheduling 05/27/2022 Comprehensive Visit Orthopedic Surgery Markus Sams M.D., Ph.D. [address] [place] [phone] 05/29/2022 Office Visit Otorhinolaryngology Dex Matta, RAMONA, C.N.P., M.S.N. [address] [place] [phone] 05/29/2022 Office Visit Otorhinolaryngology Nadeem Maradiaga, P.A.-C., M.S. [address] [place] [address] [phone] 05/31/2022 Appointment Radiology Guilherme Matt MPAS, P.Murtaza.Marie., M.S. [address] [place] [phone] 06/05/2022 Appointment Laboratory Medicine Angélica Granger P.A.-C. [address] [place] [phone] 06/19/2022 Appointment Laboratory Medicine Angélica Granger P.A.-C. [address] [place] [phone] 07/03/2022 Appointment Laboratory Medicine Angélica Granger P.A.-C. [address] [place] [phone] 07/17/2022 Appointment Laboratory Medicine Angélica Granger P.A.-C. [address] [place] [phone] 07/31/2022 Appointment Laboratory Medicine Angélica Granger P.A.-C. [address] [place] [phone] 08/14/2022 Appointment Laboratory Medicine Angélica Granger P.A.-C. [address] [place] [phone] 08/28/2022 Appointment Laboratory Medicine Angélica Granger P.A.-C. [address] [place] [phone] documented as of this encounter Visit Diagnoses Diagnosis Immunodeficiency (HCC) Transplant Liver (HCC) documented in this encounter Additional Health Concerns Assessment Noted Time PHQ-9 Depression Total Score: 4 11/28/2020 10:17 AM CD T documented as of this encounter Care Teams Single Fold Machine Operator Relationship Specialty Start Date End Date Elsewhere, Pcp PCP - General Family Medicine 07/29/17 [facility] - Laboratory Medicine 04/12/[address] [address] documented as of this encounter
--- OUTSIDE RECORDS SUMMARY | 2022-05-17 18:20 | XMS_ITS | Encounter Summary ---
:1955 Author Organization [facility] Address [address] [place] [address] Care Team Providers Name Role Phone Elsewhere, Pcp Primary Care Provider Unavailable Encounter Details Date Type Department Care Team Description 01/11/2022 Orders Only Department of Noni Bautista Chondritis Pinna Right Dermatology in [place] Azevedo, M.S. (Primary Dx) [place], [place] [address] [place] [address] [address] [place] [phone] Social History Tobacco Use Types Packs/Day Years [...] Date Recorded Male 05/16/2020 4:[address] PRODUCTION documented as of 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 [address] [place] [phone] 05/23/2022 Clinical Admitting/Central Communication Scheduling 05/27/2022 Comprehensive Visit Orthopedic Surgery Markus Sams M.D., Ph.D. [address] [place] [phone] 05/29/2022 Office Visit Otorhinolaryngology Dex Matta, INFORMATION TECHNOLOGY SECURITY ANALYST, C.N.P., M.S.N. [address] [place] [phone] 05/29/2022 Office Visit Otorhinolaryngology Nadeem Maradiaga, P.Murtaza.-Arley., M.S. [address] [place] [phone] 05/31/2022 Appointment Radiology Guilherme Matt MPAS, Jennifer., M.S. [address] [place] [address] [phone] 06/05/2022 Appointment Laboratory Medicine Angélica Granger P.A.-C. [address] [place] [phone] 06/19/2022 Appointment Laboratory Medicine Angélica Granger P.A.-C. [address] [place] [phone] 07/03/2022 Appointment Laboratory Medicine Angélica Granger P.A.-C. [address] [place] [phone] 07/17/2022 Appointment Laboratory Medicine Angélica Granger P.A.-C. [address] [place] [phone] 07/31/2022 Appointment Laboratory Medicine Angélica Granger P.A.-C. [address] [place] [phone] 08/14/2022 Appointment Laboratory Medicine Angélica Granger P.A.-C. [address] [place] [phone] 08/28/2022 Appointment Laboratory Medicine Angélica Granger P.A.-C. [address] [place] [phone] documented as of this encounter Visit Diagnoses Diagnosis Chondritis Pinna Right - Primary documented in this encounter Additional Health Concerns Assessment Noted Time PHQ-9 Depression Total Score: 4 11/28/2020 10:17 AM CD T documented as of this encounter Care Teams Test Department Helper Relationship Specialty Start Date End Date Elsewhere, Pcp PCP - General Family Medicine 07/29/17 [facility] - Laboratory Medicine 04/12/20 [place] [phone] documented as of this encounter
--- OUTSIDE RECORDS SUMMARY | 2022-05-17 18:20 | XMS_ITS | Encounter Summary ---
:1955 Author Organization [facility] Address [address] [place] [address] Care Team Providers Name Role Phone Elsewhere, Pcp Primary Care Provider Unavailable Encounter Details Date Type Department Care Team Description 01/21/2022 Orders Only Curt aguirre [facility] Trung Plasencia for Transplantation and Mayuri Wyatt. Clinical Regeneration in [address] [place] [address] [place] [phone] [place] [address] [phone] Social History Tobacco Use Types Packs/Day Years [...] or the highest technical, or vocational p [employer] degree you have received? 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 [address] [place] [phone] 05/23/2022 Clinical Admitting/Central Communication Scheduling 05/27/2022 Comprehensive Visit Orthopedic Surgery Markus Sams M.D., Ph.D. [address] [place] [phone] 05/29/2022 Office Visit Otorhinolaryngology Dex Matta, RAMONA, C.N.P., M.S.N. [address] [place] [phone] 05/29/2022 Office Visit Otorhinolaryngology Nadeem Maradiaga, P.A.-C., M.S. [address] [place] [phone] 05/31/2022 Appointment Radiology Guilherme Matt MPAS, P.Murtaza.Marie., M.S. [address] [place] [phone] 06/05/2022 Appointment Laboratory Medicine Angélica Granger P.A.-C. [address] [place] [phone] 06/19/2022 Appointment Laboratory Medicine Angélica Granger P.A.-C. [address] [place] [phone] 07/03/2022 Appointment Laboratory Medicine Angélica Granger P.A.-C. [address] [place] [phone] 07/17/2022 Appointment Laboratory Medicine Angélica Granger P.A.-C. [address] [place] [address] [phone] 07/31/2022 Appointment Laboratory Medicine Angélica Granger P.A.-C. [address] [place] [address] [phone] 08/14/2022 Appointment Laboratory Medicine Angélica Granger P.A.-C. [address] [place] [address] [phone] 08/28/2022 Appointment Laboratory Medicine Angélica Granger P.A.-C. [address] [place] [phone] documented as of this encounter Visit Diagnoses Not on filedocumented in this encounter Additional Health Concerns Infection Onset Date Last Indicated Resolved Time COVID19 Pending 02/04/2022 02/04/2022 02/05/2022 2:30 PM CDT Assessment Noted Time PHQ-9 Depression Total Score: 4 11/28/2020 10:17 AM CD T documented as of this encounter Care Teams Mgmt Analyst Relationship Specialty Start Date End Date Elsewhere, Pcp PCP - General Family Medicine 07/29/17 [facility] - Laboratory Medicine 04/12/20 [place] [address] documented as of this encounter
--- OUTSIDE RECORDS SUMMARY | 2022-05-17 18:20 | XMS_ITS | Encounter Summary ---
:1955 Author Organization [facility] Address [address] [place] [address] Care Team Providers Name Role Phone Elsewhere, Pcp Primary Care Provider Unavailable Reason for Visit Reason Comments Labs Only Encounter Details Date Type Department Care Team Description 01/18/2022 Clinical Communication Irena Gamez [facility] Labs Only Center for R, R.N. 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 *All labs are now found in [facility] - Lab - Flowsheets. For further review of labs, please review there or under Synopsis* documented in 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 [address] [place] [phone] 05/23/2022 Clinical Admitting/Central Communication Scheduling 05/27/2022 Comprehensive Visit Orthopedic Surgery Markus Sams M.D., Ph.D. [address] [place] [phone] 05/29/2022 Office Visit Otorhinolaryngology Dex Matta APRN, C.N.P., M.S.N. [address] [place] [phone] 05/29/2022 Office Visit Otorhinolaryngology Nadeem Maradiaga, P.A.-C., M.S. [address] [place] [phone] 05/31/2022 Appointment Radiology Guilherme Matt MPAS, P.Murtaza.Marie., M.S. [address] [place] [phone] 06/05/2022 Appointment Laboratory Medicine Angélica Granger P.A.-C. [address] [place] [phone] 06/19/2022 Appointment Laboratory Medicine Angélica Granger P.A.-C. [address] [place] [phone] 07/03/2022 Appointment Laboratory Medicine Angélica Granger P.A.-C. [address] [place] [phone] 07/17/2022 Appointment Laboratory Medicine Angélica Granger P.A.-C. [address] [place] [phone] 07/31/2022 Appointment Laboratory Angélica Royal P.A.-C. [address] [place] [phone] 08/14/2022 Appointment Laboratory Medicine Angélica Granger P.A.-C. [address] [place] [phone] 08/28/2022 Appointment Laboratory Medicine Angélica Granger P.A.-C. [address] [place] [phone] documented as of this encounter Visit Diagnoses Not on filedocumented in this encounter Additional Health Concerns Assessment Noted Time PHQ-9 Depression Total Score: 4 11/28/2020 10:17 AM CD T documented as of this encounter Care Teams Manager Camp Relationship Specialty Start Date End Date Elsewhere, Pcp PCP - General Family Medicine 07/29/17 [facility] [place] - Laboratory Medicine 04/12/[address] [address] documented as of this encounter
--- OUTSIDE RECORDS SUMMARY | 2022-05-17 18:20 | XMS_ITS | Encounter Summary ---
:1955 Author Organization [facility] Address [address] [place] [address] Care Team Providers Name Role Phone Elsewhere, Pcp Primary Care Provider Unavailable Reason for Visit Reason Comments Labs Only 01/09/22 Encounter Details Date Type Department Care Team Description 01/11/2022 Clinical Anastasia Ingram Labs Only Communication Center for Jolly RSteve, (01/09/22) Transplantation and C.C.T.C. Clinical Regeneration [phone] in [facility]) [place] [address] [place] [address] Social History Tobacco Use Types Packs/Day Years [...] or the highest technical, or vocational p [employer] degree you have received? Sex Assigned at Date Recorded Male 05/16/2020 4:27 PM COUTURIERE documented as of this encounter Miscellaneous Notes [...] Dilan *All labs are now found in [employer] [facility] - Lab - Flowsheets. For further review of labs, please review there or under Synopsis* documented in 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 [address] [place] [phone] 05/23/2022 Clinical Admitting/Central Communication Scheduling 05/27/2022 Comprehensive Visit Orthopedic Surgery Markus Sams M.D., Ph.D. [address] [place] [phone] 05/29/2022 Office Visit Otorhinolaryngology Dex Matta, RAMONA, C.N.P., M.S.N. [address] [place] [phone] 05/29/2022 Office Visit Otorhinolaryngology Nadeem Maradiaga, P.Murtaza.-C., M.S. [address] [place] [phone] 05/31/2022 Appointment Radiology Guilherme Matt, RASTA, P.Murtaza.Marie., M.S. [address] [place] [address] [phone] 06/05/2022 Appointment Laboratory Medicine Angélica Granger P.A.-C. [address] [place] [phone] 06/19/2022 Appointment Laboratory Medicine Angélica Granger P.A.-C. [address] [place] [phone] 07/03/2022 Appointment Laboratory Medicine Angélica Granger P.A.-C. [address] [place] [phone] 07/17/2022 Appointment Laboratory Medicine Angélica Granger P.A.-C. [address] [place] [phone] 07/31/2022 Appointment Laboratory Medicine Angélica Granger P.A.-C. [address] [place] [phone] 08/14/2022 Appointment Laboratory Medicine Angélica Granger P.A.-C. [address] [place] [phone] 08/28/2022 Appointment Laboratory Medicine Angélica Granger P.A.-C. 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
--- OUTSIDE RECORDS SUMMARY | 2022-05-17 18:20 | XMS_ITS | Encounter Summary ---
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 [address] [place] [phone] 05/23/2022 Clinical Admitting/Central Communication Scheduling 05/27/2022 Comprehensive Visit Orthopedic Surgery Markus Sams M.D., Ph.D. [address] [place] [phone] 05/29/2022 Office Visit Otorhinolaryngology Dex Matta APRN, C.N.P., M.S.N. [address] [place] [phone] 05/29/2022 Office Visit Otorhinolaryngology Nadeem Maradiaga, P.A.-C., M.S. [address] [place] [phone] 05/31/2022 Appointment Radiology Guilherme Matt, RASTA, PEdgar.Marie., M.S. [address] [place] [phone] 06/05/2022 Appointment Laboratory Medicine Angélica Granger P.A.-C. [address] [place] [phone] 06/19/2022 Appointment Laboratory Medicine Angélica Granger P.A.-C. [address] [place] [phone] 07/03/2022 Appointment Laboratory Medicine Angélica Granger P.A.-C. [address] [place] [phone] 07/17/2022 Appointment Laboratory Medicine Angélica Granger P.A.-C. [address] [place] [phone] 07/31/2022 Appointment Laboratory Medicine Angélica Granger P.A.-C. [address] [place] [phone] 08/14/2022 Appointment Laboratory Medicine Angélica Granger P.A.-C. [address] [place] [address] [phone] 08/28/2022 Appointment Laboratory Medicine Angélica Granger P.A.-C. [address] [place] [phone] documented as of this encounter Procedures Procedure Name Priority Date/Time Associated Diagnosis Comme nts [place] REF SUSCEPT Routine 01/21/2022 8:58 Results fo r this MA[employer] EA [employer]UG AM CDT procedure are in the results section. [place] REF SUSCEPT Routine 01/21/2022 8:58 Results fo r this MACROBROTH EA DRUG AM CDT procedure are in the results section. [place] REF SUSCEPT Routine 01/21/2022 8:58 Results fo r this MACROBROTH EA DRUG AM CDT procedure are in the results section. [place] REF SUSCEPT Routine 01/21/2022 8:58 Results fo [...] 8:24 CDT AM CDT Trung Plasencia P.A.-C., MDemetriusS. LAB MISC ORDERABLES Performing Organization Address [facility] Code Phon e Number [address] [phone] [place] Department Of Path[place] [address] Dept of Path-Fungus Lab [facility] MML Referral Test 1 (01/21/2022 8:58 AM CDT) P athologist Signature Test Name Caspofungin 02/07/2022 [facility] 8:24 AM CDT Result See Below 02/13/2022 [facility] 2:31 PM CDT Comment: Antifungal Susceptibility Testing Source: Sputum Species ID Provided: Fusarium sp. Result Name ?Result ?Flag ? Units ? Caspofungin (ALESSANDRA) ? >8 ?mcg/mL ? Interpretation ? No Established Breakpoints Test Performed By: [address] Department of Pathology Fungus Lab [place], [place] ??[phone] Specimen Anatomical Collection Method Collection Time Receive d Time (Source) Location / / Volume Laterality Varies 01/21/2022 8:58 AM 2 8:24 CDT AM CDT Trung Plasencia P.A.-C. M.S. LAB MISC ORDERABLES Performing Organization Address [facility] Code Phon e Number [facility] REFERRAL LAB [facility] Voriconazole - Sent Out Lab (01/21/2022 8:58 AM CDT) Component Value Ref Test Analysis Performed At Patholo gist Range Method Time Signature Source Sputum, [...] MICROBIOLOGY - GENERAL ORDERABLES Performing Organization Address City/[facility] Phon e Number [facility] [address] [place], [place] [phone] [place] Department Of Pathology [place] [address] [facility] [address] [place] [address] Dept of Path-Fungus Lab Posaconazole - Sent Out Lab (01/21/2022 8:58 AM CDT) Component Value Ref Test Analysis Performed At [facility] Method Time Signature Source Sputum, Sputum 02/13/2022 [...] MICROBIOLOGY - GENERAL ORDERABLES Performing Organization Address City/[facility] Phon e Number [facility] [address] [place], [place] [phone] [place] Department Of Pathology [place] [address] [facility] [address] [facility] Dept of Path-Fungus Lab Mycobacterial Culture (01/21/2022 8:58 AM CDT) [facility] Method Time Signature Mycobacterial No growth 03/04/2022 DTL Culture after 42 1:01 PM CDT days of incubation . Specimen Anatomical Collection Method Collection Time Receive d Time (Source) Location / / Volume Laterality Sputum (Sputum) 01/21/2022 8:58 AM 2021 9:57 CDT AM CDT Comment: Specimen Source Site: Sputum Trung Plasencia P.A.-C., M.S. LAB MICROBIOLOGY - GENERAL ORDERABLES Performing Organization Address City/[facility] Phon e Number [facility] - 200 [place] [address] Laboratories-[address] Acid Fast Smear For Mycobacterium (01/21/2022 8:58 AM CDT) [facility] gist Method Time Signature Acid Fast Smear Negative. 01/21/2022 DTL For Mycobacterium 10:33 PM CDT Specimen Anatomical Collection Method Collection Time Receive d Time (Source) Location / / Volume Laterality Sputum (Sputum) 01/21/2022 8:58 AM 2021 9:57 CDT AM CDT Comment: Specimen Source Site: Sputum Trung Plasencia P.A.-C., M.S. LAB MICROBIOLOGY - GENERAL ORDERABLES Performing Organization Address City/[facility] Phon e Number [facility] - [phone] [place] [address] (ABNORMAL) Fungal Culture, Routine (01/21/2022 8:58 AM CDT) [facility] gist Method Time Signature Fungal Mixed [...] MICROBIOLOGY - GENERAL ORDERABLES Performing Organization Address City/[facility]/ZIP [facility] Phon e Number [facility] - 200 [place], [place] [address] [facility] [place] [address] Fungal Smear (01/21/2022 8:58 AM CDT) P athologist Signature Fungal Smear Negative. 01/21/2022 DTL 1:38 PM CDT Specimen Anatomical Collection Method Collection Time Receive d Time (Source) Location / / Volume Laterality Sputum (Sputum) 01/21/2022 8:58 AM 2021 9:57 CDT AM CDT Comment: Specimen Source Site: Sputum Trung Plasencia P.A.-C., M.S. LAB MICROBIOLOGY - GENERAL ORDERABLES Performing Organization Address City/[facility] Phon e Number [facility] - 200 [place] [address] [place] [id number] [place] [address] (ABNORMAL) Bacterial Culture, Aerobic + Susc, Resp [...] Serratia marcescens Cefazolin SUSCEPTIBILITY, >16 mcg/mL: Resistant ADVID (MCG/ML) Serratia marcescens Ceftriaxone SUSCEPTIBILITY, <=1 mcg/mL: [...] [facility] - 200 [place] [address] 05 [place] [address] Laboratories-[facility] 200 [facility] Gram Stain (01/21/2022 8:58 AM CDT) [facility] gist Method Time Signature Gram Stain Upper [...] Address City/State/ZIP Code Phon e Number [address] [place] [address] [facility]-[address] documented in this encounter Visit Diagnoses Diagnosis Bronchiectasis (HCC) documented in this encounter Additional Health Concerns Assessment Noted Time PHQ-9 Depression Total Score: 4 11/28/2020 10:17 AM CD T documented as of this encounter 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
--- OUTSIDE RECORDS SUMMARY | 2022-05-17 18:20 | XMS_ITS | Encounter Summary ---
:1955 Author Organization [facility] Address [address] [place] [address] Care Team Providers Name Role Phone Elsewhere, Pcp Primary Care Provider Unavailable Reason for Referral Medication Prior Authorization - Authorized Specialty Diagnoses / Procedures Referred By Contact Refer red To Contact Trung Plasencia P.A. -C., M.S. 200 [place] [phone] Referral ID Status Reason Start Date Expiration Date Visits V isits Requested Authorized [id number] Authorized 10/21/2021 07/22/2022 1 1 Medication Prior Authorization - Authorized Specialty Diagnoses / Procedures Referred By Contact Refer red To Contact Trung Plasencia P.A. -C., M.S. 200 [place], [place] [phone] Referral ID Status Reason Start Date Expiration Date Visits V isits Requested Authorized [id number] Authorized 10/21/2021 07/22/2022 1 1 Encounter Details Date Type Department Care Team Description 01/17/2022 Orders Only Curt Anju [facility] Trung Plasencia, for Transplantation and P.A.-C., M.S. 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 [address] [place] [phone] 05/23/2022 Clinical Admitting/Central Communication Scheduling 05/27/2022 Comprehensive Visit Orthopedic Surgery Markus Sams M.D., Ph.D. [address] [place] [phone] 05/29/2022 Office Visit Otorhinolaryngology Dex Matta APRN, C.N.P., M.S.N. [address] [place] [phone] 05/29/2022 Office Visit Otorhinolaryngology Nadeem Maradiaga, Jennifer., M.S. [address] [place] [phone] 05/31/2022 Appointment Radiology Guilherme Matt, RASTA, Edmundo, M.S. [address] [place] [phone] 06/05/2022 Appointment Laboratory Medicine Angélica Granger P.A.-C. [address] [place] [phone] 06/19/2022 Appointment Laboratory Medicine Angélica Granger P.A.-C. [address] [place] [phone] 07/03/2022 Appointment Laboratory Medicine Angélica Granger P.A.-C. [address] [place] [phone] 07/17/2022 Appointment Laboratory Medicine Angélica Granger P.A.-C. [address] [place] [phone] 07/31/2022 Appointment Laboratory Medicine Angélica Granger P.A.-C. [address] [place] [phone] 08/14/2022 Appointment Laboratory Medicine Angélica Granger P.A.-C. [address] [place] [phone] 08/28/2022 Appointment Laboratory Medicine Angélica Granger P.A.-C. [address] [place] [phone] documented as of this encounter Visit Diagnoses Not on filedocumented in this encounter Additional Health Concerns Assessment Noted Time PHQ-9 Depression Total Score: 4 11/28/2020 10:17 AM CD T documented as of this encounter Care Teams Store Hand Relationship Specialty Start Date End Date Elsewhere, Pcp PCP - General Family Medicine 07/29/17 [facility] - Laboratory Medicine 04/12/[address] [address] documented as of this encounter
--- OUTSIDE RECORDS SUMMARY | 2022-05-17 18:20 | XMS_ITS | Encounter Summary ---
:1955 Author Organization [facility] Address [address] [place] [address] Care Team Providers Name Role Phone Elsewhere, Pcp Primary Care Provider Unavailable Encounter Details Date Type Department Care Team Description 01/16/2022 Hospital Encounter Department of Angélica Granger ant Liver (HCC); Laboratory Medicine J PDemetriusADurgaC. 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 traZODone (DESYREL) 100 Take 1 tablet (100 90 tablet 3 03/12/202108/27/2022 mg tablet mg total) by mouth at bedtime as needed for sleep. vancomycin (VANCOCIN) TAKE 1 CAPSULE BY 34 capsule 0 021 05/26/2022 125 mg capsule MOUTH FOUR TIMES A DAY FOR 34 DOSES valGANciclovir (VALCYTE) Take 1 tablet (450 45 tablet 0 12/202103/27/2022 450 mg mg total) by mouth tabletIndications: every other day. Transplant Liver ([facility]), take every 48 hours Medication Therapy [...] capsuleIndications: mouth 2 (two) times Transplant Liver ([facility]), a day. Do not Infection break, cut, or open Cytomegalovirus (HCC), capsules. Medication Therapy Prison Not Anticoagulant NIFEdipine XL (PROCARDIA Take 60 mg by mouth 0 04/29/2022 XL) 30 mg 24 hr tablet daily. tacrolimus (PROGRAF) 0.5 Take 1 capsule (0.5 90 capsule 3 03/15/2022 mg capsuleIndications: mg total) by mouth Transplant Liver ([facility]), daily. Medication Therapy Upholsterer Assembly Line Not Anticoagulant torsemide (DEMADEX) 10 Take 3 [...] Appointment Laboratory Medicine Angélica Granger P.A.-C. 200 [place] [phone] 05/23/2022 Clinical Admitting/Central Communication Scheduling 05/27/2022 Comprehensive Visit Orthopedic Surgery Markus Sams M.D., Ph.D. [address] [place] [phone] 05/29/2022 Office Visit Otorhinolaryngology Dex Matta APRN, CDemetriusNDemetriusP., M.S.N. [address] [place] [phone] 05/29/2022 Office Visit Otorhinolaryngology Nadeem Maradiaga, Jennifer., M.S. [address] [place] [phone] 05/31/2022 Appointment Radiology Guilherme Matt, RASTA, Jennifer., M.S. [address] [place] [phone] 06/05/2022 Appointment Laboratory Medicine Angélica Granger P.A.-C. [address] [place] [phone] 06/19/2022 Appointment Laboratory Medicine Angélica Granger P.A.-C. [address] [place] [phone] 07/03/2022 Appointment Laboratory Medicine Angélica Granger P.A.-C. [address] [place] [phone] 07/17/2022 Appointment Laboratory Medicine Angélica Granger P.A.-C. [address] [place] [phone] 07/31/2022 Appointment Laboratory Medicine Angélica Granger P.A.-C. [address] [place] [phone] 08/14/2022 Appointment Laboratory Medicine Angélica Granger P.A.-C. [address] [place] [phone] 08/28/2022 Appointment Laboratory Medicine Angélica Granger P.A.-C. [address] [place] [phone] documented as of this encounter Procedures Procedure Name Priority Date/Time Associated Diagnosis Comme nts CMV DNA DETECT/QUANT, Routine 01/16/2022 8:09 Transplant Liver Results for this P AM CDT (HCC) procedure are in Medication Therapy the resul ts Prison Not section. Anticoagulant TACROLIMUS LEVEL, B Routine 01/16/2022 8:09 Transplant Liver R esults for this AM CDT (HCC) procedure are in Medication Therapy the resul ts Upholsterer Assembly Line Not section. Anticoagulant CBC WITHOUT Routine 01/16/2022 8:09 Transplant Liver Results for this DIFFERENTIAL, B AM CDT (HCC) procedure are in Medication Therapy the resul ts Upholsterer Assembly Line Not section. Anticoagulant GLUCOSE, FASTING, S/P Routine 01/16/2022 8:09 Transplant Liver Results for this AM CDT (HCC) procedure are in Medication Therapy the resul ts Prison Not section. Anticoagulant COMPREHENSIVE Routine 01/16/2022 8:09 Transplant Liver Results for this METABOLIC PANEL, S/P AM CDT (HCC) procedure are in Medication Therapy the resul ts Prison Not section. Anticoagulant documented in this encounter [...] nce characteristics determined by [facility] in a manner consistent with CLIA requirements. This test has not been cleared or approved by the U.S. Mer d and Drug Administration. Specimen Anatomical Collection Method Collection Time Receive d Time (Source) Location / / Volume Laterality Blood (Blood, 01/16/2022 8:09 AM 01/18/20 22 7:08 Venous) CDT AM CDT Angélica Granger P.A.-C. LAB BLOOD NON ADD-ON Performing Organization Address City/[facility] Code Phon e Number [facility] [address] [place] [address] [place] [address] Laboratory Medicine and Pathology [address] [place] [address] Dr. MURILLO (ABNORMAL) CMV DNA Detect / Quant, Plasma (01/16/2022 8:09 AM CDT) [facility] Method Time Signature CMV DNA <35 (A) Undetected 01/17/2022 [facility] Detect/Quant, IU/mL 3:56 PM CDT P Comment: [...] u sing the tika CMV test ([employer] with the tika 6800 System. Specimen Anatomical Collection Method Collection Time Receive d Time (Source) Location / / Volume Laterality Blood (Blood, 01/16/2022 8:09 AM 01/18/20 22 7:07 Venous) CDT AM CDT Angélica Granger P.A.-C. LAB MICROBIOLOGY - BLOOD ORD ERABLES Performing Organization Address City/State/ZIP Code Phon e Number [facility] [address] [place], [place] [address] SUPPORT CENTER [facility] [place] [address] Laboratory Medicine and Pathology [address] [place] (ABNORMAL) Glucose, Fasting (01/16/2022 8:09 AM CDT) athologist Signature Glucose, P 120 [...] Organization Address City/State/ZIP Code Phon e Number [address] [address] [facility] [place] [address] (ABNORMAL) Comprehensive Metabolic Panel (01/16/2022 8:09 [...] eGFR-Black/Afri 20 (L) >=60 01/16/2022 CNFL can [place] mL/min/BSA 8:34 AM CDT Comment: ----ADDITIONAL INFORMATION---- Estimated GFR calculated using the 2009 CKD_EPI creatinine equation. eGFR Non-Black/ 18 (L) >=60 mL/min/BSA 01/16/2022 8:34 AM CDT CNFL [place] Comment: ----ADDITIONAL INFORMATION---- Estimated GFR calculated using [...] Organization Address City/State/ZIP Code Phon e Number [facility]- [address] [place] [address] [facility] [address] (ABNORMAL) CBC without Differential (01/16/2022 8:09 AM CDT) [facility] gist Method Time Signature Hemoglobin 11.9 (L) [...] Laterality Blood (Blood, 01/16/2022 8:09 AM 01/17/20 22 8:11 Venous) CDT AM CDT Angélica Granger P.A.-C. LAB BLOOD ADD-ON Performing Organization Address City/State/ZIP Code Phon e Number [facility]- [address] [place] [address] [facility] [address] System [address] documented in this encounter Visit Diagnoses Diagnosis Transplant Liver (HCC) Medication Therapy Prison Not Anticoa gulant documented in this encounter Additional Health Concerns Assessment Noted Time PHQ-9 Depression Total Score: 4 11/28/2020 10:17 AM CD T documented as of this encounter Care Teams Health Tech Relationship Specialty Start Date End Date Elsewhere, Pcp PCP - General Family Medicine 07/29/17 [facility] - Laboratory Medicine 04/12/20 [place] [address] documented as of this encounter
--- OUTSIDE RECORDS SUMMARY | 2022-05-17 18:20 | XMS_ITS | Encounter Summary ---
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 200 [place] [address] Referral ID Status Reason Start Date Expiration Date Visits Requ ested Visits Authorized [id number] Closed 12/28/2021 12/28/2022 1 1 Encounter Details Date Type Department Care Team Description 01/21/2022 Office Visit Trung Swenson Pneumo lili Aspergillus (HCC) (Primary Dx); Center for J, P.A.-C., Infection Cytom egalovirus (HCC); Transplantation and M.S. 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 - 01/21/2022 2:00 PM CDT DEMOGRAPHIC INFORMATION Patient Name: Bruce Singh Clinic Number: [id number] Age: 66 y.o. Birthdate: 1955 Sex: male Service Date/Time: 01/21/22 3:02 PM CDT TRANSPLANT INFECTIOUS DISEASES SERVICE - Progress Note SUBJECTIVE REFERRAL SOURCE Trung Plasencia P.A.-C., M.S. REASON FOR VISIT Possible fungal pneumonia. Serratia pneumonia. CMV viremia. HISTORY OF PRESENT ILLNESS Mr. Singh is a 66 year old gentleman from [place], [place] whom I know from prior clinic [...] other diagnostic studies which are available in [employer] and [employer] respectively. Lab Results Component Value Date HGB [...] while on valganciclovir. Patient is traveling to [place], [place] later this month. This will be his 39th consecutive year going there for the motorcycle [employer]. PATIENT EDUCATION Ready to learn, no apparent [...] chest results. He had sent me in [employer] portal message stating that he had no refills on his Bactrim so I have electronically generated a new prescription to his local pharmacy at his request. Trung Plasencia P.A.-C., M.S. documented in 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 [address] [place] [phone] 05/23/2022 Clinical Admitting/Central Communication Scheduling 05/27/2022 Comprehensive Visit Orthopedic Surgery Markus Sams M.D., Ph.D. [address] [place] [phone] 05/29/2022 Office Visit Otorhinolaryngology Dex Matta APRN, C.N.P., M.S.N. [address] [place] [phone] 05/29/2022 Office Visit Otorhinolaryngology Nadeem Maradiaga P.A.-C., M.S. [address] [place] [phone] 05/31/2022 Appointment Radiology Guilherme Matt MPAS, P.A.-C., M.S. [address] [place] [phone] 06/05/2022 Appointment Laboratory Medicine Angélica Granger P.A.-C. [address] [place] [phone] 06/19/2022 Appointment Laboratory Medicine Angélica Granger P.A.-C. [address] [place] [phone] 07/03/2022 Appointment Laboratory Medicine Angélica Granger P.A.-C. [address] [place] [phone] 07/17/2022 Appointment Laboratory Medicine Angélica Granger P.A.-C. [address] [place] [phone] 07/31/2022 Appointment Laboratory Medicine Angélica Granger P.A.-C. [address] [place] [phone] 08/14/2022 Appointment Laboratory Medicine Angélica Granger P.A.-C. [address] [place] [phone] 08/28/2022 Appointment Laboratory Medicine Angélica Granger P.A.-C. [address] [place] [phone] documented as of this encounter Visit Diagnoses Diagnosis Pneumonia Aspergillus (HCC) - Primary Infection Cytomegalovirus (HCC) Abnormal Computed Tomography Chest Transplant Liver (HCC) Medication Therapy Assisted Not Anticoa gulant Immunodeficiency Due To Drugs (HCC) documented in this encounter Additional Health Concerns Assessment Noted Time PHQ-9 Depression Total Score: 4 11/28/2020 10:17 AM CD T documented as of this encounter Care Teams Associate Marketing Manager Relationship Specialty Start Date End Date Elsewhere, Pcp PCP - General Family Medicine 07/29/17 [facility] - Laboratory Medicine 04/12/[address] [address] documented as of this encounter
--- OUTSIDE RECORDS SUMMARY | 2022-05-17 18:20 | XMS_ITS | Encounter Summary ---
:1955 Author Organization [facility] Address [address] [place] [address] Care Team Providers Name Role Phone Elsewhere, Pcp Primary Care Provider Unavailable Encounter Details Date Type Department Care Team Description 01/18/2022 Orders Only Curt aguirre [facility] Trung Plasencia for Transplantation and Mayuri Wyatt. Clinical Regeneration in [address] [place] [address] [place] [phone] [place] [phone] [phone] Social History Tobacco Use Types Packs/Day Years [...] or the highest technical, or vocational p [employer] degree you have received? 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 [address] [place] [phone] 05/23/2022 Clinical Admitting/Central Communication Scheduling 05/27/2022 Comprehensive Visit Orthopedic Surgery Markus Sams M.D., Ph.D. [address] [place] [phone] 05/29/2022 Office Visit Otorhinolaryngology Dex Matta, RAMONA, C.N.P., M.S.N. [address] [place] [phone] 05/29/2022 Office Visit Otorhinolaryngology Nadeem Maradiaga, P.A.-C., M.S. [address] [place] [phone] 05/31/2022 Appointment Radiology Guilherme Matt MPAS, P.Murtaza.Marie., M.S. [address] [place] [phone] 06/05/2022 Appointment Laboratory Medicine Angélica Granger P.A.-C. [address] [place] [phone] 06/19/2022 Appointment Laboratory Medicine Angélica Granger P.A.-C. [address] [place] [phone] 07/03/2022 Appointment Laboratory Medicine Angélica Granger P.A.-C. [address] [place] [phone] 07/17/2022 Appointment Laboratory Medicine Angélica Granger P.A.-C. [address] [place] [phone] 07/31/2022 Appointment Laboratory Medicine Angélica Granger P.A.-C. [address] [place] [phone] 08/14/2022 Appointment Laboratory Medicine Angélica Granger P.A.-C. [address] [place] [phone] 08/28/2022 Appointment Laboratory Medicine Angélica Granger P.A.-C. [address] [place] [phone] documented as of this encounter Visit Diagnoses Not on filedocumented in this encounter Additional Health Concerns Assessment Noted Time PHQ-9 Depression Total Score: 4 11/28/2020 10:17 AM CD T documented as of this encounter Care Teams Skilled Helper Relationship Specialty Start Date End Date Elsewhere, Pcp PCP - General Family Medicine 07/29/17 [facility] - Laboratory Medicine 04/12/20 [place] [phone] documented as of this encounter
--- OUTSIDE RECORDS SUMMARY | 2022-05-17 18:20 | XMS_ITS | Encounter Summary ---
:1955 Author Organization [facility] Address [address] [place] [address] Care Team Providers Name Role Phone Elsewhere, Pcp Primary Care Provider Unavailable Encounter Details Date Type Department Care Team Description 01/23/2022 Hospital Encounter Department of Angélica Granger ant Liver (HCC); Laboratory Medicine Leena PDemetriusADurgaC. 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 Transplant Liver ([facility]), take every 48 hours Medication Therapy [...] mouth 2 (two) times Transplant Liver ([facility]), a day. Do not Infection break, cut, or open Cytomegalovirus (HCC), capsules. Medication Therapy Assistant To The President Not Anticoagulant NIFEdipine XL (PROCARDIA Take 60 mg by mouth 0 04/29/2022 XL) 30 mg 24 hr tablet daily. tacrolimus (PROGRAF) 0.5 Take 1 capsule (0.5 90 capsule 3 03/15/2022 mg capsuleIndications: mg total) by mouth Transplant Liver ([facility]), daily. Medication Therapy Fpc Not Anticoagulant torsemide (DEMADEX) 10 Take 3 tablets (30 60 tablet 1 10/1701/31/2022 mg tablet mg total) by mouth daily. documented as of 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 [address] [place] [phone] 05/23/2022 Clinical Admitting/Central Communication Scheduling 05/27/2022 Comprehensive Visit Orthopedic Surgery Markus Sams M.D., Ph.D. [address] [place] [phone] 05/29/2022 Office Visit Otorhinolaryngology Dex Matta APRN, C.N.P., M.S.N. [address] [place] [phone] 05/29/2022 Office Visit Otorhinolaryngology Nadeem Maradiaga, Jennifer., M.S. [address] [place] [phone] 05/31/2022 Appointment Radiology Guilherme Matt MPAS, Jnenifer., M.S. [address] [place] [phone] 06/05/2022 Appointment Laboratory Medicine Angélica Granger P.A.-C. [address] [place] [phone] 06/19/2022 Appointment Laboratory Medicine Angélica Granger P.A.-C. [address] [place] [phone] 07/03/2022 Appointment Laboratory Medicine Angélica Granger P.A.-C. [address] [place] [phone] 07/17/2022 Appointment Laboratory Medicine Angélica Granger P.A.-C. [address] [place] [phone] 07/31/2022 Appointment Laboratory Medicine Angélica Granger P.A.-C. [address] [place] [phone] 08/14/2022 Appointment Laboratory Medicine Angélica Granger P.A.-C. [address] [place] [phone] 08/28/2022 Appointment Laboratory Medicine Angélica Granger P.A.-C. [address] [place] [phone] documented as of this encounter Procedures Procedure Name Priority Date/Time Associated Diagnosis Comme nts CMV DNA DETECT/QUANT, Routine 01/23/2022 8:11 Transplant Liver Results for this P AM CDT (HCC) procedure are in Medication Therapy the resul ts Assistant To The President Not section. Anticoagulant TACROLIMUS LEVEL, B Routine 01/23/2022 8:11 Transplant Liver R esults for this AM CDT (HCC) procedure are in Medication Therapy the resul ts Assistant To The President Not section. Anticoagulant CBC WITHOUT Routine 01/23/2022 8:11 Transplant Liver Results for this DIFFERENTIAL, B AM CDT (HCC) procedure are in Medication Therapy the resul ts Assistant To The President Not section. Anticoagulant GLUCOSE, FASTING, S/P Routine 01/23/2022 8:11 Transplant Liver Results for this AM CDT (HCC) procedure are in Medication Therapy the resul ts Assistant To The President Not section. Anticoagulant COMPREHENSIVE Routine 01/23/2022 8:11 Transplant Liver Results for this METABOLIC PANEL, S/P AM CDT (HCC) procedure are in Medication Therapy the resul ts Fpc Not section. Anticoagulant documented in this encounter [...] its performa nce characteristics determined by [facility] in a manner consistent with CLIA requirements. [...] [facility] [address] [place] [address] [facility] [place] [address] Laboratory Medicine and Pathology [address] [place] (ABNORMAL) CMV DNA Detect / Quant, Plasma (01/23/2022 8:11 AM CDT) [facility] Method Time Signature CMV DNA <35 (A) Undetected 01/24/2022 [facility] Detect/Quant, IU/mL 1:06 PM CDT P Comment: [...] performed u sing the tika CMV test ([employer] with the tika [employer] M[employer] System. Specimen Anatomical Collection Method Collection Time Receive d Time (Source) Location / / Volume Laterality Blood (Blood, 01/23/2022 8:11 AM 01/25/20 22 7:18 Venous) CDT AM CDT Angélica Granger P.A.-C. LAB MICROBIOLOGY - BLOOD ORD ERABLES Performing Organization Address City/State/ZIP Code Phon e Number [facility] [address] [place], [place] [address] [place], [place] [address]. [place] [address] Laboratory Medicine and Pathology [address] [...] LAB BLOOD NON ADD-ON Performing Organization Address City/[facility]/RUST Code Phon e Number [address] [address] [place] [address] System [address] (ABNORMAL) Comprehensive Metabolic Panel (01/23/2022 8:11 [...] eGFR-Black/Afri 20 (L) >=60 01/23/2022 CNFL can [place] mL/min/BSA 8:36 AM CDT Comment: ----ADDITIONAL INFORMATION---- Estimated GFR calculated using the 2009 CKD_EPI creatinine equation. eGFR Non-Black/ 17 (L) >=60 mL/min/BSA 01/23/2022 8:36 AM CDT CNFL [place] Comment: ----ADDITIONAL INFORMATION---- Estimated GFR calculated using [...] Address City/State/ZIP Code Phon e Number [facility]- [address] [place] [address] [place] [address] System [address] (ABNORMAL) CBC without Differential (01/23/2022 8:11 AM CDT) [facility] gist Method Time Signature Hemoglobin 12.0 (L) [...] P.A.-C. LAB BLOOD ADD-ON Performing Organization Address City/State/RUST Code Phon e Number [facility]- [address] [place] [address] [place] [address] System [address] documented in this encounter Visit Diagnoses Diagnosis Transplant Liver (HCC) Medication Therapy Assistant To The President Not Anticoa gulant documented in this encounter Additional Health Concerns Assessment Noted Time PHQ-9 Depression Total Score: 4 11/28/2020 10:17 AM CD T documented as of this encounter Care Teams Copy Center Associate Relationship Specialty Start Date End Date Elsewhere, Pcp PCP - General Family Medicine 07/29/17 [facility] - Laboratory Medicine 04/12/[address] [address] documented as of this encounter
--- OUTSIDE RECORDS SUMMARY | 2022-05-17 18:20 | XMS_ITS | Encounter Summary ---
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 [address] [place] [phone] 05/29/2022 Office Visit Otorhinolaryngology Dex Matta APRN, C.N.P., M.S.N. [address] [place] [phone] 05/29/2022 Office Visit Otorhinolaryngology Nadeem Maradiaga, Jennifer., M.S. [address] [place] [phone] 05/31/2022 Appointment Radiology Guilherme Matt, RASTA, Edmundo, M.S. [address] [place] [phone] 06/05/2022 Appointment Laboratory Medicine Angélica Granger P.A.-C. [address] [place] [phone] 06/19/2022 Appointment Laboratory Medicine Angélica Granger P.A.-C. [address] [place] [phone] 07/03/2022 Appointment Laboratory Medicine Angélica Granger P.A.-C. [address] [place] [phone] 07/17/2022 Appointment Laboratory Medicine Angélica Granger P.A.-C. [address] [place] [phone] 07/31/2022 Appointment Laboratory Medicine Angélica Granger P.A.-C. [address] [place] [phone] 08/14/2022 Appointment Laboratory Medicine Angélica Granger P.A.-C. [address] [place] [address] 08/28/2022 Appointment Laboratory Medicine Angélica Granger P.A.-C. [address] [place] [phone] documented as of this encounter Visit Diagnoses Not on filedocumented in this encounter Additional Health Concerns Assessment Noted Time PHQ-9 Depression Total Score: 4 11/28/2020 10:17 AM CD T documented as of this encounter Care Teams Sofa Cover Inspector Relationship Specialty Start Date End Date Elsewhere, Pcp PCP - General Family Medicine 07/29/17 [facility] - Laboratory Medicine 04/12/[address] [address] documented as of this encounter
--- OUTSIDE RECORDS SUMMARY | 2022-05-17 18:20 | XMS_ITS | Encounter Summary ---
:1955 Author Organization [facility] Address [address] [place] [address] Care Team Providers Name Role Phone Elsewhere, Pcp Primary Care Provider Unavailable Reason for Referral MRI/CAT/PET Scan (Routine) - Closed Specialty Diagnoses / Procedures Referred By Contact Refer red To Contact Radiology Diagnoses Transplant Liver (HCC) Medication Therapy Fly Raiser Lockstitch Not Anticoagulant Pneumonia Aspergillus (HCC) Trung Plasencia P.A.-C., [facility] Procedures CT Chest without IV Contrast M.S. 200 [place], [place] [phone] Referral ID Status Reason Start Date Expiration Date Visits Requ ested Visits Authorized [id number] Closed 12/28/2021 12/28/2022 1 1 Reason for Visit MRI/CAT/PET Scan (Routine) - Closed Specialty Diagnoses / Procedures Referred By Contact Refer red To Contact Radiology Diagnoses Transplant Liver (HCC) Medication Therapy Fly Raiser Lockstitch Not Anticoagulant Pneumonia Aspergillus (HCC) Trung Plasencia P.A.-C., [facility] Procedures CT Chest without IV Contrast M.S. 200 [place], [place] [address] Referral ID Status Reason Start Date Expiration Date Visits Requ ested Visits Authorized [id number] Closed 12/28/2021 12/28/2022 1 1 Encounter Details Date Type Department Care Team Description 01/21/2022 Hospital Encounter Department of Trung Plasencia nt Liver (HCC); Radiology, Kd Stern P.A.-C., Medication Therapy Skilled Nursing Not Anticoagulant; Building, in [place] 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 Do not Infection break, cut, or open Cytomegalovirus (HCC), capsules. Medication Therapy Fly Raiser Lockstitch Not Anticoagulant NIFEdipine XL (PROCARDIA Take 60 mg by mouth 0 04/29/2022 XL) 30 mg 24 hr tablet daily. tacrolimus (PROGRAF) 0.5 Take 1 capsule (0.5 90 capsule 3 03/15/2022 mg capsuleIndications: mg total) by mouth Transplant Liver ([facility]), daily. Medication Therapy Skilled Nursing Not Anticoagulant torsemide (DEMADEX) 10 Take 3 tablets (30 60 tablet 1 10/1701/31/2022 mg tablet mg total) by mouth daily. documented as of 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 [address] [place] [phone] 05/23/2022 Clinical Admitting/Central Communication Scheduling 05/27/2022 Comprehensive Visit Orthopedic Surgery Markus Sams M.D., Ph.D. [address] [place] [phone] 05/29/2022 Office Visit Otorhinolaryngology Dex Matta APRN, C.N.P., M.S.N. [address] [place] [phone] 05/29/2022 Office Visit Otorhinolaryngology Nadeem Maradiaga P.A.-C., M.S. [address] [place] [phone] 05/31/2022 Appointment Radiology Guilherme Matt MPAS, P.A.-C., M.S. [address] [place] [phone] 06/05/2022 Appointment Laboratory Medicine Angélica Granger P.A.-C. [address] [place] [phone] 06/19/2022 Appointment Laboratory Medicine Angélica Granger P.A.-C. [address] [place] [phone] 07/03/2022 Appointment Laboratory Medicine Angélica Granger P.A.-C. [address] [place] [phone] 07/17/2022 Appointment Laboratory Medicine Angélica Granger P.A.-C. [address] [place] [phone] 07/31/2022 Appointment Laboratory Medicine Angélica Granger P.A.-C. [address] [place] [phone] 08/14/2022 Appointment Laboratory Medicine Angélica Granger P.A.-C. [address] [place] [phone] 08/28/2022 Appointment Laboratory Medicine Angélica Granger P.A.-C. [address] [place] [phone] documented as of this encounter Procedures Procedure Name Priority Date/Time Associated Comments Diagnosis CT CHEST WITHOUT RAD - Routine 01/21/2022 9:26 Transplant Liver Res ults for this IV CONTRAST (most inpatients AM CDT (HCC) procedure are in and all Medication Therapy the resul ts outpatients) Fly Raiser Lockstitch Not section. Anticoagulant Pneumonia Aspergillus (HCC) documented [...] Diagnoses Diagnosis Transplant Liver (HCC) Medication Therapy Fly Raiser Lockstitch Not Anticoa gulant Pneumonia Aspergillus (HCC) documented in this encounter Additional Health Concerns Assessment Noted Time PHQ-9 Depression Total Score: 4 11/28/2020 10:17 AM CD T documented as of this encounter Care Teams Manufacturing Development Engineer Relationship Specialty Start Date End Date Elsewhere, Pcp PCP - General Family Medicine 07/29/[address] [facility] - Laboratory Medicine 04/12/20 [place] [phone] documented as of this encounter
--- OUTSIDE RECORDS SUMMARY | 2022-05-17 18:20 | XMS_ITS | Encounter Summary ---
:1955 Author Organization [facility] Address [address] [place] [address] Care Team Providers Name Role Phone Elsewhere, Pcp Primary Care Provider Unavailable Encounter Details Date Type Department Care Team Description 01/11/2022 Nurse Only Department of Dermatology in Varun Chand M.D., M.S. 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 - 01/11/2022 4:00 PM CDT Patient returns for wound exam status post mohs for Derm Diagnosis: Squamous Cell Carcinoma by Dr. Lonnie Saldivar ([id number]) and Dr. Nino on January 04, [address] bowl. Dr[address] Liam Bautista seen and consulted patient Supervising Physician: Dr. Gerardo Hale ([id number]) Wound cleansed with normal saline. Wound is [...] Laboratory Medicine Angélica Granger P.A.-C. [address] [place] [phone] 05/23/2022 Clinical Admitting/Central Communication Scheduling 05/27/2022 Comprehensive Visit Orthopedic Surgery Markus Sams M.D., Ph.D. [address] [place] [phone] 05/29/2022 Office Visit Otorhinolaryngology Dex Matta APRN, C.N.P., M.S.N. [address] [place] [phone] 05/29/2022 Office Visit Otorhinolaryngology Nadeem Maradiaga, PEdgar.Marie., M.S. [address] [place] [phone] 05/31/2022 Appointment Radiology Guilherme Matt MPAS, PEdgar.Marie., M.S. [address] [place] [phone] 06/05/2022 Appointment Laboratory Medicine Angélica Granger P.A.-C. [address] [place] [phone] 06/19/2022 Appointment Laboratory Medicine Angélica Granger P.A.-C. [address] [place] [phone] 07/03/2022 Appointment Laboratory Medicine Angélica Granger P.A.-C. [address] [place] [phone] 07/17/2022 Appointment Laboratory Medicine Angélica Granger P.A.-C. [address] [place] [phone] 07/31/2022 Appointment Laboratory Medicine Angélica Granger P.A.-C. [address] [place] [address] [phone] 08/14/2022 Appointment Laboratory Medicine Angélica Granger P.A.-C. [address] [place] [address] [phone] 08/28/2022 Appointment Laboratory Medicine Angélica Granger P.A.-C. [address] [place] [address] [phone] documented as of this encounter Visit Diagnoses Not on filedocumented in this encounter Additional Health Concerns Assessment Noted Time PHQ-9 Depression Total Score: 4 11/28/2020 10:17 AM CD T documented as of this encounter Care Teams Engine Research Engineer Relationship Specialty Start Date End Date Elsewhere, Pcp PCP - General Family Medicine 07/29/17 [facility] - Laboratory Medicine 04/12/[address] [address] documented as of this encounter
--- OUTSIDE RECORDS SUMMARY | 2022-05-17 18:20 | XMS_ITS | Encounter Summary ---
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 [address] [place] [phone] 05/23/2022 Clinical Admitting/Central Communication Scheduling 05/27/2022 Comprehensive Visit Orthopedic Surgery Markus Sams M.D., Ph.D. [address] [place] [phone] 05/29/2022 Office Visit Otorhinolaryngology Dex Matta APRN, C.N.P., M.S.N. [address] [place] [phone] 05/29/2022 Office Visit Otorhinolaryngology Nadeem Maradiaga, P.A.-C., M.S. [address] [place] [phone] 05/31/2022 Appointment Radiology Guilherme Matt MPAS, P.Murtaza.Marie., M.S. [address] [place] [phone] 06/05/2022 Appointment Laboratory Medicine Angélica Granger P.A.-C. [address] [place] [phone] 06/19/2022 Appointment Laboratory Medicine Angélica Granger P.A.-C. [address] [place] [phone] 07/03/2022 Appointment Laboratory Medicine Angélica Granger P.A.-C. [address] [place] [phone] 07/17/2022 Appointment Laboratory Medicine Angélica Granger P.A.-C. [address] [place] [phone] 07/31/2022 Appointment Laboratory Medicine Angélica Granger P.A.-C. [address] [place] [phone] 08/14/2022 Appointment Laboratory Angélica Royal P.A.-C. [address] [place] [phone] 08/28/2022 Appointment Laboratory Medicine Angélica Granger P.A.-C. [address] [place] [phone] documented as of this encounter Procedures Procedure [...] documented as of this encounter Care Teams Lineman Relationship Specialty Start Date End Date Elsewhere, Pcp PCP - General Family Medicine 07/29/[address] [facility] - Laboratory Medicine 04/12/20 [place] [phone] documented as of this encounter
--- OUTSIDE RECORDS SUMMARY | 2022-05-17 18:21 | XMS_ITS | Encounter Summary ---
:1955 Author Organization [facility] Address [address] [place] [address] Care Team Providers Name Role Phone Elsewhere, Pcp Primary Care Provider Unavailable Encounter Details Date Type Department Care Team Description 01/03/2022 Clinical Communication Irena Gamez [facility] for R, R.N. 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 *All labs are now found in [facility] - Lab - Flowsheets. For further review of labs, please review there or under Synopsis* documented in 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 [address] [place] [address] [phone] 05/23/2022 Clinical Admitting/Central Communication Scheduling 05/27/2022 Comprehensive Visit Orthopedic Surgery Markus Sams M.D., Ph.D. [address] [place] [phone] 05/29/2022 Office Visit Otorhinolaryngology Dex Matta APRN, C.N.P., M.S.N. [address] [place] [phone] 05/29/2022 Office Visit Otorhinolaryngology Nadeem Maradiaga, P.Murtaza.-Arley., M.S. [address] [place] [phone] 05/31/2022 Appointment Radiology Guilherme Matt MPAS, P.Murtaza.-Arley., M.S. [address] [place] [phone] 06/05/2022 Appointment Laboratory Medicine Angélica Granger P.A.-C. [address] [place] [address] [phone] 06/19/2022 Appointment Laboratory Medicine Angélica Granger P.A.-C. [address] [place] [phone] 07/03/2022 Appointment Laboratory Medicine Angélica Granger P.A.-C. [address] [place] [phone] 07/17/2022 Appointment Laboratory Medicine Angélica Granger P.A.-C. [address] [place] [phone] 07/31/2022 Appointment Laboratory Medicine Angélica Granger P.A.-C. [address] [place] [phone] 08/14/2022 Appointment Laboratory Medicine Angélica Granger P.A.-C. [address] [place] [phone] 08/28/2022 Appointment Laboratory Medicine Angélica Granger P.A.-C. [address] [place] [phone] documented as of this encounter Visit Diagnoses Not on filedocumented in this encounter Additional Health Concerns Assessment Noted Time PHQ-9 Depression Total Score: 4 11/28/2020 10:17 AM CD T documented as of this encounter Care Teams Corporate Sales Manager Relationship Specialty Start Date End Date Elsewhere, Pcp PCP - General Family Medicine 07/29/17 [facility] - Laboratory Medicine 04/12/[address] [address] documented as of this encounter
--- OUTSIDE RECORDS SUMMARY | 2022-05-17 18:21 | XMS_ITS | Encounter Summary ---
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 [address] [place] [phone] 05/23/2022 Clinical Admitting/Central Communication Scheduling 05/27/2022 Comprehensive Visit Orthopedic Surgery Markus Sams M.D., Ph.D. [address] [place] [phone] 05/29/2022 Office Visit Otorhinolaryngology Dex Matta APRN, C.N.P., M.S.N. [address] [place] [phone] 05/29/2022 Office Visit Otorhinolaryngology Nadeem Maradiaga, P.A.-C., M.S. [address] [place] [phone] 05/31/2022 Appointment Radiology Guilherme Matt MPAS, P.Murtaza.Marie., M.S. [address] [place] [phone] 06/05/2022 Appointment Laboratory Medicine Angélica Granger P.A.-C. [address] [place] [phone] 06/19/2022 Appointment Laboratory Medicine Angélica Granger P.A.-C. [address] [place] [phone] 07/03/2022 Appointment Laboratory Medicine Angélica Granger P.A.-C. [address] [place] [phone] 07/17/2022 Appointment Laboratory Medicine Angélica Granger P.A.-C. [address] [place] [phone] 07/31/2022 Appointment Laboratory Medicine Angélica Granger P.A.-C. [address] [place] [phone] 08/14/2022 Appointment Laboratory Medicine Angélica Granger P.A.-C. [address] [place] [phone] 08/28/2022 Appointment Laboratory Medicine Angélica Granger P.A.-C. [address] [place] [phone] documented as of this encounter Procedures Procedure [...] documented as of this encounter Care Teams Laminate Floor Installer Relationship Specialty Start Date End Date Elsewhere, Pcp PCP - General Family Medicine 07/29/17 [facility] - Laboratory Medicine 04/12/20 [place] [phone] documented as of this encounter
--- OUTSIDE RECORDS SUMMARY | 2022-05-17 18:21 | XMS_ITS | Encounter Summary ---
:1955 Author Organization [facility] Address [address] [place] [address] Care Team Providers Name Role Phone Elsewhere, Pcp Primary Care Provider Unavailable Encounter Details Date Type Department Care Team Description 01/09/2022 Hospital Encounter Department of Angélica Granger ant Liver (HCC); Laboratory Medicine J PDemetriusADurgaC. 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 Medication Therapy Senior Care Not Anticoagulant NIFEdipine XL (PROCARDIA Take 60 mg by mouth 0 04/29/2022 XL) 30 mg 24 hr tablet daily. tacrolimus (PROGRAF) 0.5 Take 1 capsule (0.5 90 capsule 3 03/15/2022 mg capsuleIndications: mg total) by mouth Transplant Liver ([facility]), daily. Medication Therapy Transcribing Operator Head Not Anticoagulant torsemide (DEMADEX) 10 Take 3 [...] Medicine Angélica Granger P.A.-C. [address] [place] [address] 05/23/2022 Clinical Admitting/Central Communication Scheduling 05/27/2022 Comprehensive Visit Orthopedic Surgery Markus Sams M.D., Ph.D. [address] [place] [phone] 05/29/2022 Office Visit Otorhinolaryngology Dex Matta APRN, C.N.P., M.S.N. [address] [place] [phone] 05/29/2022 Office Visit Otorhinolaryngology Nadeem Maradiaga P.A.-C., M.S. [address] [place] [phone] 05/31/2022 Appointment Radiology Guilherme Matt, RASTA, Edmundo, M.S. [address] [place] [phone] 06/05/2022 Appointment Laboratory Medicine Angélica Granger P.A.-C. [address] [place] [phone] 06/19/2022 Appointment Laboratory Medicine Angélica Granger P.A.-C. [address] [place] [phone] 07/03/2022 Appointment Laboratory Medicine Angélica Granger P.A.-C. [address] [place] [phone] 07/17/2022 Appointment Laboratory Medicine Angélica Granger P.A.-C. [address] [place] [phone] 07/31/2022 Appointment Laboratory Medicine Angélica Granger P.A.-C. [address] [place] [phone] 08/14/2022 Appointment Laboratory Medicine Angélica Granger P.A.-C. [address] [place] [address] 08/28/2022 Appointment Laboratory Medicine Angélica Granger P.A.-C. [address] [place] [address] documented as of this encounter Procedures Procedure [...] are in Medication Therapy the resul ts Transcribing Operator Head Not section. Anticoagulant CBC WITHOUT Routine 01/09/2022 8:07 Transplant Liver Results for this DIFFERENTIAL, B AM CDT (HCC) procedure are in Medication Therapy the resul ts Senior Care Not section. Anticoagulant GLUCOSE, FASTING, S/P Routine 01/09/2022 8:07 Transplant Liver Results for this AM CDT (HCC) procedure are in Medication Therapy the resul ts Transcribing Operator Head Not section. Anticoagulant COMPREHENSIVE Routine 01/09/2022 8:07 Transplant Liver Results for this METABOLIC PANEL, S/P AM CDT (HCC) procedure are in Medication Therapy the resul ts Transcribing Operator Head Not section. Anticoagulant documented in this encounter [...] LAB BLOOD NON ADD-ON Performing Organization Address City/[facility]/ZIP [facility] Phon e Number [facility] [address] [place] [phone] SUPPORT [facility] [place] [address] Laboratory Medicine and Pathology [address] [place] [address] Dr. MURILLO (ABNORMAL) CMV DNA Detect / Quant, Plasma (01/09/2022 8:07 AM CDT) Patholo gist Method Time Signature CMV DNA 91 (A) Undetected 01/10/2022 [facility] Detect/Quant, IU/mL 2:49 PM CDT P Comment: Result in log IU/mL is 1.96. ----ADDITIONAL INFORMATION---- The quantification range of this assay i s 35 to 10,000,000 IU/mL (1.54 log to 7.00 log IU/mL). Testing was performed u sing the tika CMV test ([employer] with the tika 6800 System. Specimen Anatomical Collection Method Collection Time Receive d Time (Source) Location / / Volume Laterality Blood (Blood, 01/09/2022 8:07 AM 01/11/20 22 7:13 Venous) CDT AM CDT Angélica Granger P.A.-C. LAB MICROBIOLOGY - BLOOD ORD ERABLES Performing Organization Address City/State/ZIP Code Phon e Number [facility] [address] [place], [place] [address] 05 SUPPORT CENTER [facility] [place] [address] Laboratory Medicine and Pathology [address] [place] [address] Dr. MURILLO (ABNORMAL) Glucose, Fasting (01/09/2022 8:07 [...] City/State/ZIP Code Phon e Number [facility] [address] [place] [address] [facility] [place] [address] System [address] (ABNORMAL) Comprehensive Metabolic Panel (01/09/2022 8:07 [...] eGFR-Black/Afri 20 (L) >=60 01/09/2022 CN[facility] can [place] mL/min/BSA 8:37 AM CDT Comment: ----ADDITIONAL INFORMATION---- Estimated GFR calculated using the 2009 CKD_EPI creatinine equation. eGFR Non-Black/ 17 (L) >=60 mL/min/BSA 01/09/2022 8:37 AM CDT CN[facility] [place] Comment: ----ADDITIONAL INFORMATION---- Estimated GFR calculated [...] Organization Address City/State/ZIP Code Phon e Number [address] [place] [address] System in [address] (ABNORMAL) CBC without Differential (01/09/2022 8:07 AM CDT) [facility] gist Method Time Signature Hemoglobin 11.3 (L) [...] P.A.-C. LAB BLOOD ADD-ON Performing Organization Address City/State/[facility] Code Phon e Number [address] [phone] [place] [address] System [address] documented in this encounter Visit Diagnoses Diagnosis Transplant Liver (HCC) Medication Therapy Senior Care Not Anticoa gulant documented in this encounter Additional Health Concerns Assessment Noted Time PHQ-9 Depression Total Score: 4 11/28/2020 10:17 AM CD T documented as of this encounter Care Teams Dental Services Director Relationship Specialty Start Date End Date Elsewhere, Pcp PCP - General Family Medicine 07/29/17 [facility] - Laboratory Medicine 04/12/[address] [address] documented as of this encounter
--- OUTSIDE RECORDS SUMMARY | 2022-05-17 18:21 | XMS_ITS | Encounter Summary ---
:1955 Author Organization [facility] Address [address] [place] [address] Care Team Providers Name Role Phone Elsewhere, Pcp Primary Care Provider Unavailable Encounter Details Date Type Department Care Team Description 01/02/2022 Hospital Encounter Department of Angélica Granger ant Liver (HCC); Laboratory Medicine J PDemetriusADurgaC. 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 Do not Infection break, cut, or open Cytomegalovirus (HCC), capsules. Medication Therapy Snf Not Anticoagulant NIFEdipine XL (PROCARDIA Take 60 mg by mouth 0 04/29/2022 XL) 30 mg 24 hr tablet daily. sulfamethoxazole-trimeth Take 1 tablet by 30 tablet 0 12/1001/09/2022 oprim (BACTRIM,SEPTRA) mouth daily. Take 400-80 mg per tablet at bedtime, after dialysis. tacrolimus (PROGRAF) 0.5 Take 1 capsule (0.5 90 capsule 3 03/15/2022 mg capsuleIndications: mg total) by mouth Transplant Liver ([facility]), daily. Medication Therapy Environmental Conservation Professor Not Anticoagulant torsemide (DEMADEX) 10 Take 3 [...] Laboratory Medicine Angélica Granger P.A.-C. [address] [place] [phone] 05/23/2022 Clinical Admitting/Central Communication Scheduling 05/27/2022 Comprehensive Visit Orthopedic Surgery Markus Sams M.D., Ph.D. [address] [place] [phone] 05/29/2022 Office Visit Otorhinolaryngology Dex Matta APRN, C.NDemetriusP., M.S.N. [address] [place] [phone] 05/29/2022 Office Visit Otorhinolaryngology Nadeem Maradiaga, PMaryanne., M.S. [address] [place] [phone] 05/31/2022 Appointment Radiology Guilherme Matt, RASTA, Jennifer., M.S. [address] [place] [phone] 06/05/2022 Appointment Laboratory Medicine Angélica Granger P.A.-C. [address] [place] [phone] 06/19/2022 Appointment Laboratory Medicine Angélica Granger P.A.-C. [address] [place] [phone] 07/03/2022 Appointment Laboratory Medicine Angélica Granger P.A.-C. [address] [place] [phone] 07/17/2022 Appointment Laboratory Medicine Angélica Granger P.A.-C. [address] [place] [phone] 07/31/2022 Appointment Laboratory Medicine Angélica Granger P.A.-C. [address] [place] [phone] 08/14/2022 Appointment Laboratory Medicine nAgélica Granger P.A.-C. [address] [place] [phone] 08/28/2022 Appointment Laboratory Medicine Angélcia Granger P.A.-C. [address] [place] [phone] documented as of this encounter Procedures Procedure Name Priority Date/Time Associated Diagnosis Comme nts CMV DNA DETECT/QUANT, Routine 01/02/2022 8:02 Transplant Liver Results for this P AM CDT (HCC) procedure are in Medication Therapy the resul ts Snf Not section. Anticoagulant TACROLIMUS LEVEL, B Routine 01/02/2022 8:02 Transplant Liver R esults for this AM CDT (HCC) procedure are in Medication Therapy the resul ts Environmental Conservation Professor Not section. Anticoagulant CBC WITHOUT Routine 01/02/2022 8:02 Transplant Liver Results for this DIFFERENTIAL, B AM CDT (HCC) procedure are in Medication Therapy the resul ts Environmental Conservation Professor Not section. Anticoagulant GLUCOSE, FASTING, S/P Routine 01/02/2022 8:02 Transplant Liver Results for this AM CDT (HCC) procedure are in Medication Therapy the resul ts Snf Not section. Anticoagulant COMPREHENSIVE Routine 01/02/2022 8:02 Transplant Liver Results for this METABOLIC PANEL, S/P AM CDT (HCC) procedure are in Medication Therapy the resul ts Snf Not section. Anticoagulant documented in this encounter Results (ABNORMAL) Tacrolimus, B (01/02/2022 8:02 AM CDT) athologist Signature Tacrolimus, B 3.1 (L) 5.0-15.0 [...] nce characteristics determined by [facility] in a manner consistent with CLIA requirements. This test has not been cleared or approved by the U.S. Mer d and Drug Administration. Specimen Anatomical Collection Method Collection Time Receive d Time (Source) Location / / Volume Laterality Blood (Blood, 01/02/2022 8:02 AM 01/04/20 6:56 Venous) CDT AM CDT Angélica Granger P.A.-C. LAB BLOOD NON ADD-ON Performing Organization Address [facility] Phon e Number [address] [place] [address] SUPPORT CENTER [place] [address] Laboratory Medicine and Pathology [address] [place] [address] Dr. MURILLO (ABNORMAL) CMV DNA Detect / Quant, Plasma (01/02/2022 8:02 AM CDT) [facility] Method Time Signature CMV DNA 65 (A) Undetected 01/03/2022 [facility] Detect/Quant, IU/mL 2:16 PM CDT P Comment: Result in log IU/mL is 1.81. ----ADDITIONAL INFORMATION---- The quantification range of this assay i s 35 to 10,000,000 IU/mL (1.54 log to 7.00 log IU/mL). Testing was performed u sing the tika CMV test ([employer] with the tika 6800 System. Specimen Anatomical Collection Method Collection Time Receive d Time (Source) Location / / Volume Laterality Blood (Blood, 01/02/2022 8:02 AM 01/04/20 22 7:09 Venous) CDT AM CDT Angélica Granger P.A.-C. LAB MICROBIOLOGY - BLOOD ORD ERABLES Performing Organization Address City/[facility] Phon e Number [address] [place] [phone] 05 SUPPORT CENTER [facility] [address] Laboratory Medicine and Pathology [address] [place] [address] Dr. MURILLO (ABNORMAL) Glucose, Fasting (01/02/2022 8:02 [...] Organization Address City/State/ZIP Code Phon e Number [phone] [place] [address] [place] [address] System [address] (ABNORMAL) Comprehensive Metabolic Panel (01/02/2022 8:02 [...] eGFR-Black/Afri 18 (L) >=60 01/02/2022 CNFL can [place] mL/min/BSA 8:36 AM CDT Comment: ----ADDITIONAL INFORMATION---- Estimated GFR calculated using the 2009 CKD_EPI creatinine equation. eGFR Non-Black/ 15 (L) >=60 mL/min/BSA 01/02/2022 8:36 AM CDT CNFL [place] Comment: ----ADDITIONAL INFORMATION---- Estimated GFR calculated using [...] [facility] Code Phon e Number - [address] [place] [address] [place] [address] System [address] (ABNORMAL) CBC without Differential (01/02/2022 8:02 AM CDT) [facility] gist Method Time Signature Hemoglobin 10.8 (L) [...] P.A.-C. LAB BLOOD ADD-ON Performing Organization Address City/State/[facility] Phon e Number - [address] [place] [address] [place] [address] [place] [address] System [address] documented in this encounter Visit Diagnoses Diagnosis Transplant Liver (HCC) Medication Therapy Environmental Conservation Professor Not Anticoa gulant documented in this encounter Additional Health Concerns Assessment Noted Time PHQ-9 Depression Total Score: 4 11/28/2020 10:17 AM CD T documented as of this encounter Care Teams Weight Reducing Technician Relationship Specialty Start Date End Date Elsewhere, Pcp PCP - General Family Medicine 07/29/17 [facility] - Laboratory Medicine 04/12/[address] [address] documented as of this encounter
--- OUTSIDE RECORDS SUMMARY | 2022-05-17 18:21 | XMS_ITS | Encounter Summary ---
:1955 Author Organization [facility] Address [address] [place] [address] Care Team Providers Name Role Phone Elsewhere, Pcp Primary Care Provider Unavailable Reason for Referral Specialty Diagnoses / Procedures Referred By Contact Refer red To Contact T [facility] [address] [place] [address] Referral ID Status Reason Start Date Expiration Date Visits Requ ested Visits Authorized Encounter Details Date Type Department Care Team Description 01/09/2022 Orders Only Curt Goldberg Immun odeficiency (HCC) (Primary Dx); [facility], Transplant Live r (HCC) Transplantation and R.N., Clinical Regeneration in [facility] 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 [address] [place] [phone] 05/23/2022 Clinical Admitting/Central Communication Scheduling 05/27/2022 Comprehensive Visit Orthopedic Surgery Markus Sams M.D., Ph.D. [address] [place] [phone] 05/29/2022 Office Visit Otorhinolaryngology Dex Matta APRN, C.N.P., M.S.N. [address] [place] [phone] 05/29/2022 Office Visit Otorhinolaryngology Nadeem Maradiaga P.A.-C., M.S. [address] [place] [phone] 05/31/2022 Appointment Radiology Guilherme Matt, RASTA, Edmundo, M.S. [address] [place] [phone] 06/05/2022 Appointment Laboratory Medicine Angélica Granger P.A.-C. [address] [place] [phone] 06/19/2022 Appointment Laboratory Medicine Angélica Granger P.A.-C. [address] [place] [phone] 07/03/2022 Appointment Laboratory Medicine Angélica Granger P.A.-C. [address] [place] [phone] 07/17/2022 Appointment Laboratory Medicine Angélica Granger P.A.-C. [address] [place] [phone] 07/31/2022 Appointment Laboratory Medicine Angélica Granger P.A.-C. [address] [place] [phone] 08/14/2022 Appointment Laboratory Medicine Angélica Granger P.A.-C. [address] [place] [phone] 08/28/2022 Appointment Laboratory Medicine Angélica Granger P.A.-C. [address] [place] [phone] Scheduled Referrals Name Type Priority Associated Diagnoses Order S chedule Covid immunization Outpatient Routine Immunodeficie ncy (HCC) Expected: office visit Referral Transplant Liver (HCC) 01/21, Immuno/Booster Expires: 04/11/2023 documented as of this encounter Visit Diagnoses Diagnosis Immunodeficiency (HCC) - Primary Transplant Liver (HCC) documented in this encounter Additional Health Concerns Assessment Noted Time PHQ-9 Depression Total Score: 4 11/28/2020 10:17 AM CD T documented as of this encounter Care Teams Autobody Technician Relationship Specialty Start Date End Date Elsewhere, Pcp PCP - General Family Medicine 07/29/[address] [facility] - Laboratory Medicine 04/12/20 [place] [address] documented as of this encounter
--- OUTSIDE RECORDS SUMMARY | 2022-05-17 18:21 | XMS_ITS | Encounter Summary ---
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 [address] [place] [phone] 05/23/2022 Clinical Admitting/Central Communication Scheduling 05/27/2022 Comprehensive Visit Orthopedic Surgery Markus Sams M.D., Ph.D. [address] [place] [phone] 05/29/2022 Office Visit Otorhinolaryngology Dex Matta APRN, C.N.P., M.S.N. [address] [place] [phone] 05/29/2022 Office Visit Otorhinolaryngology Nadeem Maradiaga, PMaryanne., M.S. [address] [place] [phone] 05/31/2022 Appointment Radiology Guilherme Matt, RASTA, Edmundo, M.S. [address] [place] [phone] 06/05/2022 Appointment Laboratory Medicine Angélica Granger P.A.-C. [address] [place] [phone] 06/19/2022 Appointment Laboratory Medicine Angélica Granger P.A.-C. [address] [place] [phone] 07/03/2022 Appointment Laboratory Medicine Angélica Granger P.A.-C. [address] [place] [phone] 07/17/2022 Appointment Laboratory Medicine Angélica Granger P.A.-C. [address] [place] [phone] 07/31/2022 Appointment Laboratory Medicine Angélica Granger P.A.-C. [address] [place] [phone] 08/14/2022 Appointment Laboratory Medicine Angélica Granger P.A.-C. [address] [place] [phone] 08/28/2022 Appointment Laboratory Medicine Angélica Granger P.A.-C. [address] [place] [phone] documented as of this encounter Visit Diagnoses Not on filedocumented in this encounter Additional Health Concerns Assessment Noted Time PHQ-9 Depression Total Score: 4 11/28/2020 10:17 AM CD T documented as of this encounter Care Teams Breaker Layer Relationship Specialty Start Date End Date Elsewhere, Pcp PCP - General Family Medicine 07/29/17 [facility] - Laboratory Medicine 04/12/20 [place] [phone] documented as of this encounter
--- OUTSIDE RECORDS SUMMARY | 2022-05-17 18:21 | XMS_ITS | Encounter Summary ---
:1955 Author Organization [facility] Address [address] [place] [address] Care Team Providers Name Role Phone Elsewhere, Pcp Primary Care Provider Unavailable Encounter Details Date Type Department Care Team Description 12/27/2021 Clinical Communication Irena Gamez [facility] for R, R.N. 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 - 12/27/2021 4:55 PM CDT Provider who reviewed results: Dr Trammell and AMINATA Enriquez Recommendations: restart valcyte 450 mg every other day (renally dosed) and decrease tacrolimus to 0.5 mg daily Labs are due: 1 week Patient Online Services message was initiated by a [facility] Registered Nurse for report of [...] R.N. *All labs are now found in [facility] - Lab - Flowsheets. For further review of labs, please review there or under Synopsis* documented in 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 [address] [place] [phone] 05/23/2022 Clinical Admitting/Central Communication Scheduling 05/27/2022 Comprehensive Visit Orthopedic Surgery Markus Sams M.D., Ph.D. [address] [place] [phone] 05/29/2022 Office Visit Otorhinolaryngology Dex Matta, RAMONA, C.N.P., M.S.N. [address] [place] [phone] 05/29/2022 Office Visit Otorhinolaryngology Nadeem Maradiaga, P.Murtaza.-Arley., M.S. [address] [place] [phone] 05/31/2022 Appointment Radiology Guilherme Matt MPAS, Jennifer., M.S. [address] [place] [phone] 06/05/2022 Appointment Laboratory Medicine Angélica Granger P.A.-C. [address] [place] [phone] 06/19/2022 Appointment Laboratory Medicine Angélica Granger P.A.-C. [address] [place] [phone] 07/03/2022 Appointment Laboratory Medicine Angélica Granger P.A.-C. [address] [place] [phone] 07/17/2022 Appointment Laboratory Medicine Angélica Granger P.A.-C. [address] [place] [phone] 07/31/2022 Appointment Laboratory Medicine Angélica Granger P.A.-C. [address] [place] [phone] 08/14/2022 Appointment Laboratory Medicine Angélica Granger P.A.-C. [address] [place] [phone] 08/28/2022 Appointment Laboratory Medicine Angélica Granger P.A.-C. 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
--- OUTSIDE RECORDS SUMMARY | 2022-05-17 18:21 | XMS_ITS | Encounter Summary ---
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 [address] [place] [phone] 05/23/2022 Clinical Admitting/Central Communication Scheduling 05/27/2022 Comprehensive Visit Orthopedic Surgery Markus Sams M.D., Ph.D. [address] [place] [phone] 05/29/2022 Office Visit Otorhinolaryngology Dex Matta APRN, C.N.P., M.S.N. [address] [place] [phone] 05/29/2022 Office Visit Otorhinolaryngology Nadeem Maradiaga, P.A.-C., M.S. [address] [place] [phone] 05/31/2022 Appointment Radiology Guilherme Matt MPAS, P.Murtaza.Marie., M.S. [address] [place] [phone] 06/05/2022 Appointment Laboratory Medicine Angélica Granger P.A.-C. [address] [place] [phone] 06/19/2022 Appointment Laboratory Medicine Angélica Granger P.A.-C. [address] [place] [phone] 07/03/2022 Appointment Laboratory Medicine Angélica Granger P.A.-C. [address] [place] [phone] 07/17/2022 Appointment Laboratory Medicine Angélica Granger P.A.-C. [address] [place] [phone] 07/31/2022 Appointment Laboratory Medicine Angélica Granger P.A.-C. [address] [place] [phone] 08/14/2022 Appointment Laboratory Medicine Angélica Granger P.A.-C. [address] [place] [phone] 08/28/2022 Appointment Laboratory Medicine Angélica Granger P.A.-C. [address] [place] [phone] documented as of this encounter Procedures Procedure [...] as of this encounter Care Teams Clinical Laboratory Scientist Relationship Specialty Start Date End Date Elsewhere, Pcp PCP - General Family Medicine 07/29/17 [facility] - Laboratory Medicine 04/12/20 [place] [phone] documented as of this encounter
--- OUTSIDE RECORDS SUMMARY | 2022-05-17 18:21 | XMS_ITS | Encounter Summary ---
:1955 Author Organization [facility] Address [address] [place] [address] Care Team Providers Name Role Phone Elsewhere, Pcp Primary Care Provider Unavailable Encounter Details Date Type Department Care Team Description 01/02/2022 Orders Only Trung Swenson [facility] iectasis ([facility]) Center for J, P.A.-C., (Primary Dx) Transplantation and M.S. 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 [address] [place] [phone] 05/23/2022 Clinical Admitting/Central Communication Scheduling 05/27/2022 Comprehensive Visit Orthopedic Surgery Markus Sams M.D., Ph.D. [address] [place] [address] [phone] 05/29/2022 Office Visit Otorhinolaryngology Dex Matta APRN, C.N.P., M.S.N. [address] [place] [address] [phone] 05/29/2022 Office Visit Otorhinolaryngology Nadeem Maradiaga, PEdgar.Marie., M.S. [address] [place] [phone] 05/31/2022 Appointment Radiology Guilherme Matt, RASTA, PMaryanne., M.S. [address] [place] [phone] 06/05/2022 Appointment Laboratory Medicine Angélica Granger P.A.-C. [address] [place] [phone] 06/19/2022 Appointment Laboratory Medicine Angélica Granger P.A.-C. [address] [place] [phone] 07/03/2022 Appointment Laboratory Medicine Angélica Granger P.A.-C. [address] [place] [address] [phone] 07/17/2022 Appointment Laboratory Medicine Angélica Granger P.A.-C. [address] [place] [address] [phone] 07/31/2022 Appointment Laboratory Medicine Angélica Granger P.A.-C. [address] [place] [address] [phone] 08/14/2022 Appointment Laboratory Medicine Angélica Granger P.A.-C. [address] [place] [phone] 08/28/2022 Appointment Laboratory Medicine Angélica Granger P.A.-C. [address] [place] [phone] documented as of this encounter Results Mycobacterial Culture (01/21/2022 8:58 AM CDT) [facility] Method Time Signature Mycobacterial No growth 03/04/2022 DTL Culture after 42 1:01 PM CDT days of incubation . Specimen Anatomical Collection Method Collection Time Receive d Time (Source) Location / / Volume Laterality Sputum (Sputum) 01/21/2022 8:58 AM 2021 9:57 CDT AM CDT Comment: Specimen Source Site: Sputum Trung Plasencia P.A.-C. M.S. LAB MICROBIOLOGY - GENERAL ORDERABLES Performing Organization Address City/[facility] Phon e Number [facility] - 200 [place], [place] [address] [facility] [place] [address] Laboratories-[facility] [address] [facility] Acid Fast Smear For Mycobacterium (01/21/2022 8:58 [...] MICROBIOLOGY - GENERAL ORDERABLES Performing Organization Address City/[facility] Phon e Number [facility] - [address] [place], [place] [address] [place] [address] [address] (ABNORMAL) Fungal Culture, Routine (01/21/2022 8:58 AM CDT) Patholo gist Method [...] MICROBIOLOGY - GENERAL ORDERABLES Performing Organization Address City/[facility] Phon e Number [facility] - [address] [place] [address] Fungal Smear (01/21/2022 8:58 AM CDT) P athologist Signature Fungal Smear Negative. 01/21/2022 DTL 1:38 PM CDT Specimen Anatomical Collection Method Collection Time Receive d Time (Source) Location / / Volume Laterality Sputum (Sputum) 01/21/2022 8:58 AM 2021 9:57 CDT AM CDT Comment: Specimen Source Site: Sputum Trung Plasencia P.A.-C., M.S. LAB MICROBIOLOGY - GENERAL ORDERABLES Performing Organization Address [facility] Phon e Number [facility] - [address] [place] [address] (ABNORMAL) Bacterial Culture, Aerobic + Susc, Resp [...] Organization Address City/State/ZIP Code Phon e Number [facility] - [address] [place] [address] [facility] [place] [address] Laboratories-[facility] [address] [facility] Gram Stain (01/21/2022 8:58 AM CDT) [facility] gist Method Time Signature Gram Stain [...] MICROBIOLOGY - GENERAL ORDERABLES Performing Organization Address City/State/[facility] Code Phon e Number [facility] - [address] [place], [place] [address] [facility] [place] [address] Laboratories-[facility] [address] documented in this encounter Visit Diagnoses Diagnosis Bronchiectasis (HCC) - Primary documented in this encounter Additional Health Concerns Assessment Noted Time PHQ-9 Depression Total Score: 4 11/28/2020 10:17 AM CD T documented as of this encounter Care Teams Pe Electrical Engineer Relationship Specialty Start Date End Date Elsewhere, Pcp PCP - General Family Medicine 07/29/17 [facility] - Laboratory Medicine 04/12/[address] [address] documented as of this encounter
--- OUTSIDE RECORDS SUMMARY | 2022-05-17 18:21 | XMS_ITS | Encounter Summary ---
:1955 Author Organization [facility] Address [address] [place] [address] Care Team Providers Name Role Phone Elsewhere, Pcp Primary Care Provider Unavailable Reason for Referral Outpatient (Routine) - Authorized Specialty Diagnoses / Procedures Referred By Contact Refer red To Contact Dermatology Patricia Nino M.D. [facility] [address] [place], [place] [phone] Referral ID Status Reason Start Date Expiration Date Visits V isits Requested Authorized [id number] Authorized 01/04/2022 01/04/2023 1 1 Reason for Visit Outpatient (Routine) - Closed Specialty Diagnoses / Procedures Referred By Contact Refer red To Contact Dermatology Diagnoses Squamous Cell Carcinoma In Situ Iza Lim M.D. [facility] Procedures [facility] 1-[address] sites [address] [place] [phone] Referral ID Status Reason Start Date Expiration Date Visits Requ ested Visits Authorized [id number] Closed 11/08/2021 11/08/2022 1 1 Encounter Details Date Type Department Care Team Description 01/04/2022 Procedure visit Department of Varun Saldivar Carcinoma In Situ (Primary Dx); Dermatology samm Camejo M.D., M.S. 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 in the clinical note dated with today's date. documented in this encounter Procedure Notes Patricia Nino M.D. - 01/04/2022 11:30 AM CDT PREOP INDICATION: REMOVAL. Date of Surgery: 01/04/2022 Surgeon: Dr. Varun Saldivar M.D., M.S. Natural Fabricator: Dr. Patricia Nino M.D. 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 Lymph: No postauricular, preauricular, [...] map for complete details. #Actinic Keratoses: Right uatsdin, right cheek CONSENT Discussed the risks, benefits, [...] Laboratory Medicine Angélica Granger P.A.-C. [address] [place] [phone] 05/23/2022 Clinical Admitting/Central Communication Scheduling 05/27/2022 Comprehensive Visit Orthopedic Surgery Markus Sams M.D., Ph.D. [address] [place] [phone] 05/29/2022 Office Visit Otorhinolaryngology Dex Matta APRN, C.N.P., M.S.N. [address] [place] [phone] 05/29/2022 Office Visit Otorhinolaryngology Nadeem Maradiaga, PMaryanne., M.S. [address] [place] [phone] 05/31/2022 Appointment Radiology Guilherme Matt MPAS, Edmundo, M.S. [address] [place] [phone] 06/05/2022 Appointment Laboratory Medicine Angélica Granger P.A.-C. [address] [place] [phone] 06/19/2022 Appointment Laboratory Medicine Angélica Granger P.A.-C. [address] [place] [phone] 07/03/2022 Appointment Laboratory Medicine Angélica Granger P.A.-C. [address] [place] [phone] 07/17/2022 Appointment Laboratory Medicine Angélica Granger P.A.-C. [address] [place] [phone] 07/31/2022 Appointment Laboratory Medicine Angélica Granger P.A.-C. [address] [place] [phone] 08/14/2022 Appointment Laboratory Medicine Angélica Granger P.A.-C. [address] [place] [phone] 08/28/2022 Appointment Laboratory Medicine Angélica Granger P.A.-C. [address] [place] [phone] Scheduled Referrals Name Type Priority Associated Order [...] MAR Action Action Date Dose Rate Site [id number] Given 01/04/2022 12:20 PM CDT 4 mL [...] documented as of this encounter Care Teams Elevator Installer Apprentice Relationship Specialty Start Date End Date Elsewhere, Pcp PCP - General Family Medicine 07/29/17 [facility] - Laboratory Medicine 04/12/20 [place] [address] documented as of this encounter
--- OUTSIDE RECORDS SUMMARY | 2022-05-17 18:21 | XMS_ITS | Encounter Summary ---
:1955 Author Organization [facility] Address [address] [place] [address] Care Team Providers Name Role Phone Elsewhere, Pcp Primary Care Provider Unavailable Reason for Referral Transplant (Routine) - Closed Specialty Diagnoses / Procedures Referred By Contact Refer red To Contact Transplant Surgery / Diagnoses Transplant Liver (HCC) Medication Therapy Yoker Machine Operator Not Anticoagulant Pneumonia Aspergillus (HCC) Trung Plasencia, [facility] Transplant Jennifer., M.S. [address] [place] [address] Referral ID Status Reason Start Date Expiration Date Visits Requ ested Visits Authorized [id number] Closed 12/28/2021 12/28/2022 1 1 Scheduling Instructions Please schedule after sputum culture and Chest CT SPECIAL- please schedule cultures, then CT then Inf Dis visit. Thanks MRI/CAT/PET Scan (Routine) - Closed Specialty Diagnoses / Procedures Referred By Contact Refer red To Contact Radiology Diagnoses Transplant Liver (HCC) Medication Therapy Yoker Machine Operator Not Anticoagulant Pneumonia Aspergillus (HCC) Trung Plasencia P.A.-C., [facility] Procedures CT Chest without IV Contrast M.S. [address] [place], [place] [phone] Referral ID Status Reason Start Date Expiration Date Visits Requ ested Visits Authorized [id number] Closed 12/28/2021 12/28/2022 1 1 Encounter Details Date Type Department Care Team Description 12/28/2021 Clinical Communication Irena Gamez [facility] for R, R.N. Transplantation and [address] [place] [address] Clinical Regeneration in [place], [place] [phone] [place] [address] [place] [phone] (Work) [phone] Social History Tobacco Use Types Packs/Day Years [...] Date Recorded Male 05/16/2020 4:27 PM [facility] documented as of this encounter Miscellaneous Notes [...] 3:53 PM CDT To: Trung Plasencia P.A.-C., M.S. Subject: When to repeat CT? Diaz Nino, [...] month (January 09) or at the 6-8week guilherme (January 23-). I figured since it would possibly effect how quickly he could be listedfor kidney transplant I should clarify before placing orders. Please advise. Roman Rasheed documented in 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 [address] [place] [phone] 05/23/2022 Clinical Admitting/Central Communication Scheduling 05/27/2022 Comprehensive Visit Orthopedic Surgery Markus Sams M.D., Ph.D. [address] [place] [phone] 05/29/2022 Office Visit Otorhinolaryngology Dex Matta APRN, C.N.P., M.S.N. [address] [place] [phone] 05/29/2022 Office Visit Otorhinolaryngology Nadeem Maradiaga P.A.-C., M.S. [address] [place] [phone] 05/31/2022 Appointment Radiology Guilherme Matt, RASTA, Edmundo, M.S. [address] [place] [phone] 06/05/2022 Appointment Laboratory Medicine Angélica Granger P.A.-C. [address] [place] [phone] 06/19/2022 Appointment Laboratory Medicine Angélica Granger P.A.-C. [address] [place] [phone] 07/03/2022 Appointment Laboratory Medicine Angélica Granger P.A.-C. [address] [place] [phone] 07/17/2022 Appointment Laboratory Medicine Angélica Granger P.A.-C. [address] [place] [phone] 07/31/2022 Appointment Laboratory Medicine Angélica Granger P.A.-C. [address] [place] [phone] 08/14/2022 Appointment Laboratory Medicine Angélica Granger P.A.-C. [address] [place] [phone] 08/28/2022 Appointment Laboratory Medicine Angélica Granger P.A.-C. [address] [place] [phone] Scheduled Orders Name Type Priority Associated Diagnoses Order S chedule Bacterial Culture, Microbiology Routine Transplant Li gerry ([facility]) Expected: Aerobic + Susc, Resp Medication Therapy L julia 01/21/2022 Term Not Anticoa gulant (Approximate), Pneumonia Aspergillus s: 03/30/2023 ([facility]) Fungal Culture, Microbiology Routine Transplant Liver ([facility]) Expected: Routine Medication Therapy Long 06/2021 Term Not Anticoa gulant (Approximate), Pneumonia Aspergillus s: 03/30/2023 ([facility]) Bacterial Culture, Microbiology Routine Transplant Li gerry ([facility]) Expected: Aerobic + Susc, Resp Medication Therapy L julia 01/21/2022 Term Not Anticoa gulant (Approximate), Pneumonia Aspergillus s: 04/04/2023 ([facility]) Fungal Culture, Microbiology Routine Transplant Liver ([facility]) Expected: Routine Medication Therapy Long 06/2021 Term Not Anticoa gulant (Approximate), Pneumonia Aspergillus s: 04/04/2023 ([facility]) Scheduled Referrals Name Type Priority Associated Diagnoses Order S chedule Transplant Liver Outpatient Referral Routine Transplant Liver Expected: office visit ([facility]) 01/21/2022 (clinic) Medication Therapy (Approxim ate), Yoker Machine Operator Not Expires: Anticoagulant 03/30/2023 Pneumonia Aspergillus (HCC) [...] Primary Medication Therapy Usp Not Anticoa gulant Pneumonia Aspergillus (HCC) Transplant Liver (HCC) Medication Therapy Usp Not Anticoa gulant Pneumonia Aspergillus (HCC) documented in this encounter Additional Health Concerns Assessment Noted Time PHQ-9 Depression Total Score: 4 11/28/2020 10:17 AM CD T documented as of this encounter Care Teams Movie Extra Relationship Specialty Start Date End Date Elsewhere, Pcp PCP - General Family Medicine 07/29/17 [facility] - Laboratory Medicine 04/12/[address] [address] documented as of this encounter
--- OUTSIDE RECORDS SUMMARY | 2022-05-17 18:21 | XMS_ITS | Encounter Summary ---
:1955 Author Organization [facility] Address [address] [place] [address] Care Team Providers Name Role Phone Elsewhere, Pcp Primary Care Provider Unavailable Encounter Details Date Type Department Care Team Description 12/26/2021 Hospital Encounter Department of Angélica Granger ant Liver (HCC); Laboratory Medicine J PDemetriusADurgaC. 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 upto 5 times daily as needed. lidocaine-prilocaine Apply 1 application 30 g 11 202102/07/2022 (EMLA) 2.5-2.5 % cream topically See Admin Instructions. 2 hours prior to dialysis. mycophenolate (CELLCEPT) Take 2 capsules 360 capsule 3 10/1902/15/2022 250 mg (500 mg total) by capsuleIndications: mouth 2 (two) times Transplant Liver ([facility]), a day. Do not Infection break, [...] Laboratory Medicine Angélica Granger P.A.-C. [address] [place] [phone] 05/23/2022 Clinical Admitting/Central Communication Scheduling 05/27/2022 Comprehensive Visit Orthopedic Surgery Markus Sams M.D., Ph.D. [address] [place] [phone] 05/29/2022 Office Visit Otorhinolaryngology Dex Matta APRN, C.NDemetriusP., M.S.N. [address] [place] [phone] 05/29/2022 Office Visit Otorhinolaryngology Nadeem Maradiaga P.A.-C., M.S. [address] [place] [phone] 05/31/2022 Appointment Radiology Guilherme Matt, RASTA, Edmundo, M.S. [address] [place] [phone] 06/05/2022 Appointment Laboratory Medicine Angélica Granger P.A.-C. [address] [place] [phone] 06/19/2022 Appointment Laboratory Medicine Angélica Granger P.A.-C. [address] [place] [phone] 07/03/2022 Appointment Laboratory Medicine Angélica Grangre P.A.-C. [address] [place] [phone] 07/17/2022 Appointment Laboratory Medicine Angélica Granger P.A.-C. [address] [place] [phone] 07/31/2022 Appointment Laboratory Medicine Angélica Granger P.A.-C. [address] [place] [phone] 08/14/2022 Appointment Laboratory Medicine Angélica Granger P.A.-C. [address] [place] [phone] 08/28/2022 Appointment Laboratory Medicine Angélica Granger P.A.-C. [address] [place] [phone] documented as of this encounter Procedures Procedure Name Priority Date/Time Associated Diagnosis Comme nts CMV DNA DETECT/QUANT, Routine 12/26/2021 8:07 Transplant Liver Results for this P AM CDT (HCC) procedure are in Medication Therapy the resul ts Supervisor Extrusion Not section. Anticoagulant TACROLIMUS LEVEL, B Routine 12/26/2021 8:07 Transplant Liver R esults for this AM CDT (HCC) procedure are in Medication Therapy the resul ts Supervisor Extrusion Not section. Anticoagulant CBC WITHOUT Routine 12/26/2021 8:07 Transplant Liver Results for this DIFFERENTIAL, B AM CDT (HCC) procedure are in Medication Therapy the resul ts Supervisor Extrusion Not section. Anticoagulant GLUCOSE, FASTING, S/P Routine 12/26/2021 8:07 Transplant Liver Results for this AM CDT (HCC) procedure are in Medication Therapy the resul ts Supervisor Extrusion Not section. Anticoagulant COMPREHENSIVE Routine 12/26/2021 8:07 Transplant Liver Results for this METABOLIC PANEL, S/P AM CDT (HCC) procedure are in Medication Therapy the resul ts Supervisor Extrusion Not section. Anticoagulant documented in this encounter [...] LAB BLOOD NON ADD-ON Performing Organization Address [facility] Phon e Number [address] M[place]ILLO [place] [address] [facility] [place] [address] Laboratory Medicine and Pathology [address] [place] [address] Dr. MURILLO (ABNORMAL) CMV DNA Detect / Quant, Plasma (12/26/2021 8:07 AM CDT) [facility] Method Time Signature CMV DNA 313 (A) Undetected 12/27/2021 [facility] Detect/Quant, IU/mL 3:07 PM CDT P Comment: Result in log IU/mL is 2.50. ----ADDITIONAL INFORMATION---- The quantification range of this assay i s 35 to 10,000,000 IU/mL (1.54 log to 7.00 log IU/mL). Testing was performed u sing the tika CMV test ([employer] with the tika 6800 System. Specimen Anatomical Collection Method Collection Time Receive d Time (Source) Location / / Volume Laterality Blood (Blood, 12/26/2021 8:07 AM 12/28/19 22 7:06 Venous) CDT AM CDT Angélica Granger P.A.-C. LAB MICROBIOLOGY - BLOOD ORD ERABLES Performing Organization Address City/[facility] Phon e Number [address] M[place]ILLO [place] [phone] 05 [facility] [place] [address] Laboratory Medicine and Pathology [address] MURILLO (ABNORMAL) Glucose, Fasting (12/26/2021 8:07 [...] Organization Address City/State/ZIP Code Phon e Number [id number] [place] [address] [place] [address] [address] (ABNORMAL) Comprehensive Metabolic Panel (12/26/2021 8:07 [...] eGFR-Black/Afri 17 (L) >=60 12/26/2021 CNFL can [place] mL/min/BSA 8:41 AM CDT Comment: ----ADDITIONAL INFORMATION---- Estimated GFR calculated using the 2009 CKD_EPI creatinine equation. eGFR Non-Black/ <15 (L) >=60 mL/min/BSA 12/26/2021 8:41 AM CDT CN[facility] [place] Comment: ----ADDITIONAL INFORMATION---- Estimated GFR calculated using [...] City/State/ZIP Code Phon e Number [employer]- [address] [place] [address] [place] [address] System [address] (ABNORMAL) CBC without Differential (12/26/2021 8:07 AM CDT) [facility] gist Method Time Signature Hemoglobin 10.6 (L) [...] P.A.-C. LAB BLOOD ADD-ON Performing Organization Address [facility] Phon e Number [employer]- [address] [place] [address] [place] [address] [place] [address] [address] documented in this encounter Visit Diagnoses Diagnosis Transplant Liver (HCC) Medication Therapy Supervisor Extrusion Not Anticoa gulant documented in this encounter Additional Health Concerns Assessment Noted Time PHQ-9 Depression Total Score: 4 11/28/2020 10:17 AM CD T documented as of this encounter Care Teams Teacher Physically Impaired Relationship Specialty Start Date End Date Elsewhere, Pcp PCP - General Family Medicine 07/29/17 [facility] - Laboratory Medicine 04/12/20 [place] [phone] documented as of this encounter
--- OUTSIDE RECORDS SUMMARY | 2022-05-17 18:21 | XMS_ITS | Encounter Summary ---
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 [address] [place] [phone] 05/23/2022 Clinical Admitting/Central Communication Scheduling 05/27/2022 Comprehensive Visit Orthopedic Surgery Markus Sams M.D., Ph.D. [address] [place] [phone] 05/29/2022 Office Visit Otorhinolaryngology Dex Matta APRN, C.N.P., M.S.N. [address] [place] [phone] 05/29/2022 Office Visit Otorhinolaryngology Nadeem Maradiaga, P.A.-C., M.S. [address] [place] [phone] 05/31/2022 Appointment Radiology Guilherme Matt MPAS, P.Murtaza.Marie., M.S. [address] [place] [phone] 06/05/2022 Appointment Laboratory Medicine Angélica Granger P.A.-C. [address] [place] [phone] 06/19/2022 Appointment Laboratory Medicine Angélica Granger P.A.-C. [address] [place] [phone] 07/03/2022 Appointment Laboratory Medicine Angélica Granger P.A.-C. [address] [place] [phone] 07/17/2022 Appointment Laboratory Medicine Angélica Granger P.A.-C. [address] [place] [phone] 07/31/2022 Appointment Laboratory Medicine Angélica Granger P.A.-C. [address] [place] [phone] 08/14/2022 Appointment Laboratory Medicine Angélica Granger P.A.-C. [address] [place] [phone] 08/28/2022 Appointment Laboratory Medicine Angélica Granger P.A.-C. [address] [place] [phone] documented as of this encounter Procedures Procedure [...] documented as of this encounter Care Teams Driver Guard Relationship Specialty Start Date End Date Elsewhere, Pcp PCP - General Family Medicine 07/29/17 [facility] - Laboratory Medicine 04/12/20 [place] [phone] documented as of this encounter
--- OUTSIDE RECORDS SUMMARY | 2022-05-17 18:22 | XMS_ITS | Encounter Summary ---
:1955 Author Organization [facility] Address [address] [place] [address] Care Team Providers Name Role Phone Elsewhere, Pcp Primary Care Provider Unavailable Reason for Referral Outpatient (Routine) - Closed Specialty Diagnoses / Procedures Referred By Contact Refer red To Contact Diagnoses Encounter For Preprocedural Cardiovascular Examination Chronic Kidney Disease Stage 5 GFR Less Than 15 Dialysis Dependent (HCC) Pretransplant Recipient Evaluation Exam Willis Herrera M.D. [facility] Procedures Echo Stress [address] [place] [phone] Referral ID Status Reason Start Date Expiration Date Visits Requ ested Visits Authorized [id number] Closed 09/27/2021 09/27/2022 1 1 Reason for Visit Outpatient (Routine) - Closed Specialty Diagnoses / Procedures Referred By Contact Refer red To Contact Diagnoses Encounter For Preprocedural Cardiovascular Examination Chronic Kidney Disease Stage 5 GFR Less Than 15 Dialysis Dependent (HCC) Pretransplant Recipient Evaluation Exam Willis Herrera M.D. [facility] Procedures Echo Stress [address] [place], [place] [phone] Referral ID Status Reason Start Date Expiration Date Visits Requ ested Visits Authorized [id number] Closed 09/27/2021 09/27/2022 1 1 Encounter Details Date Type Department Care Team Description 12/10/2021 Hospital Department of Willis Herrera Encounter For Preprocedural Cardiovascular Examination ; Encounter Cardiovascular G, M.D. 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 Medication Therapy Owner Not Anticoagulant NIFEdipine XL (PROCARDIA Take 60 mg by mouth 0 04/29/2022 XL) 30 mg 24 hr tablet daily. posaconazole (NOXAFIL) Take 3 tablets (300 270 tablet 0 11/2212/11/[address] tablet mg total) by mouth daily. sulfamethoxazole-trimeth Take 1 tablet by 30 tablet 0 06/20 /2022 01/09/2022 oprim (BACTRIM,SEPTRA) mouth daily. Take 400-80 mg [...] Laboratory Medicine Angélica Granger P.A.-C. [address] [place] [phone] 05/23/2022 Clinical Admitting/Central Communication Scheduling 05/27/2022 Comprehensive Visit Orthopedic Surgery Markus Sams M.D., Ph.D. [address] [place] [phone] 05/29/2022 Office Visit Otorhinolaryngology Dex Matta APRN, C.N.P., M.S.N. [address] [place] [phone] 05/29/2022 Office Visit Otorhinolaryngology Nadeem Maradiaga, P.A.-C., M.S. [address] [place] [phone] 05/31/2022 Appointment Radiology Guilherme Matt MPAS, P.Murtaza.-Arley., M.S. [address] [place] [phone] 06/05/2022 Appointment Laboratory Medicine Angélica Granger P.A.-C. [address] [place] [phone] 06/19/2022 Appointment Laboratory Medicine Angélica Granger P.A.-C. [address] [place] [phone] 07/03/2022 Appointment Laboratory Medicine Angélica Granger P.A.-C. [address] [place] [phone] 07/17/2022 Appointment Laboratory Medicine Angélica Granger P.A.-C. [address] [place] [address] [phone] 07/31/2022 Appointment Laboratory Medicine Angélica Granger P.A.-C. [address] [place] [phone] 08/14/2022 Appointment Laboratory Medicine Angélica Granger P.A.-C. [address] [place] [address] [phone] 08/28/2022 Appointment Laboratory Medicine Angélica Granger P.A.-C. [address] [place] [address] [phone] documented as of this encounter Procedures Procedure [...] DOPPLER AND CONTRAST (12/10/2021 9:38 AM CDT) [facility] Method Time Signature Ejection Fraction 60 MC [...] For the complete report, see the [employer] Documents. Narrative 12/10/2021 10:18 AM CDT For [...] 2021 For the complete report, see the [employer] Documents. Final Impressions 1. Exercise echocardiogram negative [...] Once in imaging, line care, Starting on 12/10/21 at 0849, For 1 dose, Prior to [...] documented as of this encounter Care Teams Med Surg Nurse Relationship Specialty Start Date End Date Elsewhere, Pcp PCP - General Family Medicine 07/29/17 [facility] - Laboratory Medicine 04/12/[address] [address] documented as of this encounter
--- OUTSIDE RECORDS SUMMARY | 2022-05-17 18:22 | XMS_ITS | Encounter Summary ---
:1955 Author Organization [facility] Address [address] [place] [address] Care Team Providers Name Role Phone Elsewhere, Pcp Primary Care Provider Unavailable Reason for Referral Outpatient (Routine) - Closed Specialty Diagnoses / Procedures Referred By Contact Refer red To Contact Pulmonary Medicine Diagnoses Transplant Liver (HCC) Medication Therapy Mcfp Not Anticoagulant Immunodeficiency (HCC) iTffanie Wan M.D. [address] [phone] Referral ID Status Reason Start Date Expiration Date Visits V isits Requested Authorized [id number] Closed Specialty 12/17/2021 12/17/2022 1 1 Services [...] Brewer follow up) Transplantation and R.N. Clinical [address] [place] [phone] Social History Tobacco Use Types Packs/Day Years [...] highest technical, or vocational p [facility] degree you have received? 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 [address] [place] [phone] 05/23/2022 Clinical Admitting/Central Communication Scheduling 05/27/2022 Comprehensive Visit Orthopedic Surgery Markus Sams M.D., Ph.D. [address] [place] [phone] 05/29/2022 Office Visit Otorhinolaryngology Dex Matta APRN, C.N.P., M.S.N. [address] [place] [phone] 05/29/2022 Office Visit Otorhinolaryngology Nadeem Maradiaga, Jennifer., M.S. [address] [place] [phone] 05/31/2022 Appointment Radiology Guilherme Matt MPAS, Jennifer., M.S. [address] [place] [phone] 06/05/2022 Appointment Laboratory Medicine Angélica Granger P.A.-C. [address] [place] [phone] 06/19/2022 Appointment Laboratory Medicine Angélica Granger P.A.-C. [address] [place] [phone] 07/03/2022 Appointment Laboratory Medicine Angélica Granger P.A.-C. [address] [place] [phone] 07/17/2022 Appointment Laboratory Medicine Angélica Granger P.A.-C. [address] [place] [phone] 07/31/2022 Appointment Laboratory Medicine Angélica Granger P.A.-C. [address] [place] [phone] 08/14/2022 Appointment Laboratory Medicine Angélica Granger P.A.-C. [address] [place] [phone] 08/28/2022 Appointment Laboratory Medicine Angélica Granger P.A.-C. 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 Expires: Anticoagulant 03/19/2023 Immunodeficiency (HCC) documented as of this encounter Visit Diagnoses Diagnosis Transplant Liver (HCC) - Primary Medication Therapy Mcfp Not Anticoa gulant Immunodeficiency (HCC) documented in this encounter Additional Health Concerns Assessment Noted Time PHQ-9 Depression Total Score: 4 11/28/2020 10:17 AM CD T documented as of this encounter Care Teams Trimmer Press Clippings Relationship Specialty Start Date End Date Elsewhere, Pcp PCP - General Family Medicine 07/29/17 [facility] - Laboratory Medicine 04/12/[address] [address] documented as of this encounter
--- OUTSIDE RECORDS SUMMARY | 2022-05-17 18:22 | XMS_ITS | Encounter Summary ---
:1955 Author Organization [facility] Address [address] [place] [address] Care Team Providers Name Role Phone Elsewhere, Pcp Primary Care Provider Unavailable Reason for Visit Reason Comments Med Refill Encounter Details Date Type Department Care Team Description 12/14/2021 Refill [facility] Refill Transplantation and Clinical P.A .-C., M.S. 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 [address] [place] [phone] 05/23/2022 Clinical Admitting/Central Communication Scheduling 05/27/2022 Comprehensive Visit Orthopedic Surgery Markus Sams M.D., Ph.D. [address] [place] [phone] 05/29/2022 Office Visit Otorhinolaryngology Dex Matta APRN, C.N.P., M.S.N. [address] [place] [address] [phone] 05/29/2022 Office Visit Otorhinolaryngology Nadeem Maradiaga, PEdgar.Marie., M.S. [address] [place] [address] [phone] 05/31/2022 Appointment Radiology Guilherme Matt, RASTA, PMaryanne., M.S. [address] [place] [phone] 06/05/2022 Appointment Laboratory Medicine Angélica Granger P.A.-C. [address] [place] [phone] 06/19/2022 Appointment Laboratory Medicine Angélica Garnger P.A.-C. [address] [place] [phone] 07/03/2022 Appointment Laboratory Medicine Angélica Granger P.A.-C. [address] [place] [phone] 07/17/2022 Appointment Laboratory Medicine Angélica Granger P.A.-C. [address] [place] [phone] 07/31/2022 Appointment Laboratory Medicine Angélica Granger P.A.-C. [address] [place] [phone] 08/14/2022 Appointment Laboratory Medicine Angélica Granger P.A.-C. [address] [place] [address] [phone] 08/28/2022 Appointment Laboratory Medicine Angélica Granger P.A.-C. [address] [place] [address] [phone] documented as of this encounter Visit Diagnoses Not on filedocumented in this encounter Additional Health Concerns Assessment Noted Time PHQ-9 Depression Total Score: 4 11/28/2020 10:17 AM CD T documented as of this encounter Care Teams Examining Officer Relationship Specialty Start Date End Date Elsewhere, Pcp PCP - General Family Medicine 07/29/17 [facility] - Laboratory Medicine 04/12/[address] [address] documented as of this encounter
--- OUTSIDE RECORDS SUMMARY | 2022-05-17 18:22 | XMS_ITS | Encounter Summary ---
:1955 Author Organization [facility] Address [address] [place] [address] Care Team Providers Name Role Phone Elsewhere, Pcp Primary Care Provider Unavailable Reason for Visit Reason Comments Phone Contact Pharmacy Encounter Details Date Type Department Care Team Description 12/11/2021 Clinical Curt Moss, Phone Contact Communication Center for Yolie Millard (Pharmacy) Transplantation and R.N. 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 Carmen advised that the PA would be approved then and this medication would be filled for Bruce. Telephone Encounter - Meena Aguilar - 12/11/2021 10:05 AM CDT Pharmacist with [employer] [facility] calling to speak with nursing. She is working at [facility] for patients Posaconazole. She needs to know if this is being used primarily for the treatment ofCMV, or if there are other indications. Sending high priority as [employer] [facility] is requesting a 24 hour turn around time for the PA. Ref# [id number] documented in 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 [address] [place] [address] 05/23/2022 Clinical Admitting/Central Communication Scheduling 05/27/2022 Comprehensive Visit Orthopedic Surgery Markus Sams M.D., Ph.D. [address] [place] [phone] 05/29/2022 Office Visit Otorhinolaryngology Dex Matta APRN, C.N.P., M.S.N. [address] [place] [phone] 05/29/2022 Office Visit Otorhinolaryngology Nadeem Maradiaga, P.Tom., M.S. [address] [place] [phone] 05/31/2022 Appointment Radiology Guilherme Matt, RASTA, PMaryanne., M.S. [address] [place] [phone] 06/05/2022 Appointment Laboratory Medicine Angélica Granger P.A.-C. [address] [place] [phone] 06/19/2022 Appointment Laboratory Medicine Angélica Granger P.A.-C. [address] [place] [phone] 07/03/2022 Appointment Laboratory Medicine Angélica Granger P.A.-C. [address] [place] [phone] 07/17/2022 Appointment Laboratory Medicine Angélica Granger P.A.-C. [address] [place] [phone] 07/31/2022 Appointment Laboratory Medicine Angélica Granger P.A.-C. [address] [place] [address] 08/14/2022 Appointment Laboratory Medicine Angélica Granger P.A.-C. [address] [place] [phone] 08/28/2022 Appointment Laboratory Medicine Angélica Granger P.A.-C. [address] [place] [phone] documented as of this encounter Visit Diagnoses Not on filedocumented in this encounter Additional Health Concerns Assessment Noted Time PHQ-9 Depression Total Score: 4 11/28/2020 10:17 AM CD T documented as of this encounter Care Teams Swimming Coach Relationship Specialty Start Date End Date Elsewhere, Pcp PCP - General Family Medicine 07/29/17 [facility] - Laboratory Medicine 04/12/[address] [address] documented as of this encounter
--- OUTSIDE RECORDS SUMMARY | 2022-05-17 18:22 | XMS_ITS | Encounter Summary ---
:1955 Author Organization [facility] Address [address] [place] [address] Care Team Providers Name Role Phone Elsewhere, Pcp Primary Care Provider Unavailable Reason for Visit Transplant (Routine) - Closed Specialty Diagnoses / Procedures Referred By Contact Refer red To Contact Transplant Surgery / Diagnoses Chronic Kidney Disease Stage 5 GFR Less Than 15 Dialysis Dependent (HCC) Pretransplant Recipient Evaluation Exam Willis Herrera [facility] Transplant Sada 200 [place] [address] Referral ID Status Reason Start Date Expiration Date Visits Requ ested Visits Authorized [id number] Closed 09/27/2021 09/27/2022 1 1 Encounter Details Date Type Department Care Team Description 12/10/2021 Nurse Only [facility] Willis Urbina M.D. [address] [place] [phone] for Transplantation and Kavita Davis R.N., C.C.T.C. 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 [address] [place] [address] 05/23/2022 Clinical Admitting/Central Communication Scheduling 05/27/2022 Comprehensive Visit Orthopedic Surgery Markus Sams M.D., Ph.D. [address] [place] [phone] 05/29/2022 Office Visit Otorhinolaryngology Dex Matta APRN, C.N.P., M.S.N. [address] [place] [phone] 05/29/2022 Office Visit Otorhinolaryngology Nadeem Maradiaga P.A.-C., M.S. [address] [place] [phone] 05/31/2022 Appointment Radiology Guilherme Matt MPAS, Edmundo, M.S. [address] [place] [phone] 06/05/2022 Appointment Laboratory Medicine Angélica Granger P.A.-C. [address] [place] [phone] 06/19/2022 Appointment Laboratory Medicine Angélica Granger P.A.-C. [address] [place] [phone] 07/03/2022 Appointment Laboratory Medicine Angélica Granger P.A.-C. [address] [place] [phone] 07/17/2022 Appointment Laboratory Medicine Angélica Granger P.A.-C. [address] [place] [phone] 07/31/2022 Appointment Laboratory Medicine Angélica Granger P.A.-C. [address] [place] [phone] 08/14/2022 Appointment Laboratory Medicine Angélica Granger P.A.-C. [address] [place] [address] 08/28/2022 Appointment Laboratory Medicine Angélica Granger P.A.-C. [address] [place] [address] documented as of this encounter Visit Diagnoses Diagnosis Chronic Kidney Disease Stage 5 GFR Less Than 15 Dialysis Dependent (HCC) Pretransplant Recipient Evaluation Exam documented in this encounter Additional Health Concerns Assessment Noted Time PHQ-9 Depression Total Score: 4 11/28/2020 10:17 AM CD T documented as of this encounter Care Teams Personalization Specialist Relationship Specialty Start Date End Date Elsewhere, Pcp PCP - General Family Medicine 07/29/17 [facility] - Laboratory Medicine 04/12/[address] [address] documented as of this encounter
--- OUTSIDE RECORDS SUMMARY | 2022-05-17 18:22 | XMS_ITS | Encounter Summary ---
:1955 Author Organization [facility] Address [address] [place] [address] Care Team Providers Name Role Phone Elsewhere, Pcp Primary Care Provider Unavailable Encounter Details Date Type Department Care Team Description 12/11/2021 Documentation Curt Anju [facility] Mei Plasencia for Transplantation and Lynn WyattS. 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 [address] [place] [phone] 05/23/2022 Clinical Admitting/Central Communication Scheduling 05/27/2022 Comprehensive Visit Orthopedic Surgery Markus Sams M.D., Ph.D. [address] [place] [phone] 05/29/2022 Office Visit Otorhinolaryngology Dex Matta APRN, C.N.P., M.S.N. [address] [place] [phone] 05/29/2022 Office Visit Otorhinolaryngology Nadeem Maradiaga, Jennifer., M.S. [address] [place] [phone] 05/31/2022 Appointment Radiology Guilherme Matt MPAS, Edmundo, M.S. [address] [place] [phone] 06/05/2022 Appointment Laboratory Medicine Angélica Granger P.A.-C. [address] [place] [phone] 06/19/2022 Appointment Laboratory Medicine Angélica Granger P.A.-C. [address] [place] [phone] 07/03/2022 Appointment Laboratory Medicine Angélica Granger P.A.-C. [address] [place] [phone] 07/17/2022 Appointment Laboratory Medicine Angélica Granger P.A.-C. [address] [place] [phone] 07/31/2022 Appointment Laboratory Medicine Angélica Granger P.A.-C. [address] [place] [phone] 08/14/2022 Appointment Laboratory Medicine Angélica Granger P.A.-C. [address] [place] [phone] 08/28/2022 Appointment Laboratory Medicine Angélica Granger P.A.-C. [address] [place] [phone] documented as of this encounter Visit Diagnoses Not on filedocumented in this encounter Additional Health Concerns Assessment Noted Time PHQ-9 Depression Total Score: 4 11/28/2020 10:17 AM CD T documented as of this encounter Care Teams Capability Lead Relationship Specialty Start Date End Date Elsewhere, Pcp PCP - General Family Medicine 07/29/17 [facility] - Laboratory Medicine 04/12/[address] [address] documented as of this encounter
--- OUTSIDE RECORDS SUMMARY | 2022-05-17 18:22 | XMS_ITS | Encounter Summary ---
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 [address] [place] [phone] 05/23/2022 Clinical Admitting/Central Communication Scheduling 05/27/2022 Comprehensive Visit Orthopedic Surgery Markus Sams M.D., Ph.D. [address] [place] [phone] 05/29/2022 Office Visit Otorhinolaryngology Dex Matta APRN, C.N.P., M.S.N. [address] [place] [phone] 05/29/2022 Office Visit Otorhinolaryngology Nadeem Maradiaga, P.A.-C., M.S. [address] [place] [phone] 05/31/2022 Appointment Radiology Guilherme Matt MPAS, P.Murtaza.Marie., M.S. [address] [place] [phone] 06/05/2022 Appointment Laboratory Medicine Angélica Granger P.A.-C. [address] [place] [phone] 06/19/2022 Appointment Laboratory Medicine Angélica Granger P.A.-C. [address] [place] [address] [phone] 07/03/2022 Appointment Laboratory Medicine Angélica Granger P.A.-C. [address] [place] [phone] 07/17/2022 Appointment Laboratory Medicine Angélica Granger P.A.-C. [address] [place] [phone] 07/31/2022 Appointment Laboratory Medicine Angélica Granger P.A.-C. [address] [place] [address] [phone] 08/14/2022 Appointment Laboratory Medicine Angélica Granger P.A.-C. [address] [place] [address] [phone] 08/28/2022 Appointment Laboratory Medicine Angélica Granger P.A.-C. [address] [place] [address] [phone] documented as of this encounter Visit Diagnoses Not on filedocumented in this encounter Additional Health Concerns Assessment Noted Time PHQ-9 Depression Total Score: 4 11/28/2020 10:17 AM CD T documented as of this encounter Care Teams Lamp Assembler Relationship Specialty Start Date End Date Elsewhere, Pcp PCP - General Family Medicine 07/29/17 [facility] - Laboratory Medicine 04/12/[address] [address] documented as of this encounter
--- OUTSIDE RECORDS SUMMARY | 2022-05-17 18:22 | XMS_ITS | Encounter Summary ---
:1955 Author Organization [facility] Address [address] [place] [address] Care Team Providers Name Role Phone Elsewhere, Pcp Primary Care Provider Unavailable Reason for Visit Appointment Request (Routine) - Closed Specialty Diagnoses / Procedures Referred By Contact Refer red To Contact Otorhinolaryngology Referral ID Status Reason Start Date Expiration Date Visits Requ ested Visits Authorized [id number] Closed 12/14/2021 12/14/2022 1 Encounter Details Date Type Department Care Team Description 12/20/2021 Office Visit Department of Jaxson Churchill Otitis Media A cute Otorhinolaryngology in DJennifer., Ana M s Left (Primary [place], [place] M.S., M.P.H. 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 Informed consent was obtained, [...] Laboratory Medicine Angélica Granger P.A.-C. [address] [place] [address] 05/23/2022 Clinical Admitting/Central Communication Scheduling 05/27/2022 Comprehensive Visit Orthopedic Surgery Markus Sams M.D., Ph.D. [address] [place] [phone] 05/29/2022 Office Visit Otorhinolaryngology Dex Matta APRN, C.N.P., M.S.N. [address] [place] [phone] 05/29/2022 Office Visit Otorhinolaryngology Nadeem Maradiaga, Jennifer., M.S. [address] [place] [address] [phone] 05/31/2022 Appointment Radiology Guilherme Matt MPAS, Edmundo, M.S. [address] [place] [address] [phone] 06/05/2022 Appointment Laboratory Medicine Angélica Granger P.A.-C. [address] [place] [phone] 06/19/2022 Appointment Laboratory Medicine Angélica Granger P.A.-C. [address] [place] [address] [phone] 07/03/2022 Appointment Laboratory Medicine Angélica Granger P.A.-C. [address] [place] [phone] 07/17/2022 Appointment Laboratory Medicine Angélica Granger P.A.-C. [address] [place] [address] [phone] 07/31/2022 Appointment Laboratory Medicine Angélica Granger P.A.-C. [address] [place] [phone] 08/14/2022 Appointment Laboratory Medicine Angélica Granger P.A.-C. [address] [place] [phone] 08/28/2022 Appointment Laboratory Medicine Angélica Granger P.A.-C. [address] [place] [phone] documented as of this encounter Visit Diagnoses Diagnosis Otitis Media Acute Serous Left - Primary documented in this encounter Additional Health Concerns Assessment Noted Time PHQ-9 Depression Total Score: 4 11/28/2020 10:17 AM CD T documented as of this encounter Care Teams Security Escort Relationship Specialty Start Date End Date Elsewhere, Pcp PCP - General Family Medicine 07/29/17 [facility] - Laboratory Medicine 04/12/20 [place] [phone] documented as of this encounter
--- OUTSIDE RECORDS SUMMARY | 2022-05-17 18:22 | XMS_ITS | Encounter Summary ---
:1955 Author Organization [facility] Address [address] [place] [address] Care Team Providers Name Role Phone Elsewhere, Pcp Primary Care Provider Unavailable Encounter Details Date Type Department Care Team Description 12/19/2021 Hospital Encounter Department of Angélica Granger ant Liver (HCC); Laboratory Medicine J PDemetriusADurgaC. 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 Do not Infection [...] capsuleIndications: mg total) by mouth Transplant Liver ([facility]), 2 (two) times a Medication Therapy [...] Laboratory Medicine Angélica Granger P.A.-C. [address] [place] [phone] 05/23/2022 Clinical Admitting/Central Communication Scheduling 05/27/2022 Comprehensive Visit Orthopedic Surgery Markus Sams M.D., Ph.D. [address] [place] [phone] 05/29/2022 Office Visit Otorhinolaryngology Dex Matta APRN, C.NDemetriusP., M.S.N. [address] [place] [phone] 05/29/2022 Office Visit Otorhinolaryngology Nadeem Maradiaga, PMaryanne., M.S. [address] [place] [phone] 05/31/2022 Appointment Radiology Guilherme Matt, RASTA, Edmundo, M.S. [address] [place] [phone] 06/05/2022 Appointment Laboratory Medicine Angélica Granger P.A.-C. [address] [place] [phone] 06/19/2022 Appointment Laboratory Medicine Angélica Granger P.A.-C. [address] [place] [phone] 07/03/2022 Appointment Laboratory Medicine Angélica Granger P.A.-C. [address] [place] [phone] 07/17/2022 Appointment Laboratory Medicine Angélica Granger P.A.-C. [address] [place] [phone] 07/31/2022 Appointment Laboratory Medicine Angélica Granger P.A.-C. [address] [place] [phone] 08/14/2022 Appointment Laboratory Medicine Angélica Granger P.A.-C. [address] [place] [phone] 08/28/2022 Appointment Laboratory Medicine Angélica Granger P.A.-C. [address] [place] [phone] documented as of this encounter Procedures Procedure Name Priority Date/Time Associated Diagnosis Comme nts GLUCOSE, FASTING, S/P Routine 12/19/2021 8:36 Transplant Liver Results for this AM CDT (HCC) procedure are in Medication Therapy the resul ts Benefits Director Not section. Anticoagulant CMV DNA DETECT/QUANT, Routine 12/19/2021 8:35 Transplant Liver Results for this P AM CDT (HCC) procedure are in Medication Therapy the resul ts Benefits Director Not section. Anticoagulant TACROLIMUS LEVEL, B Routine 12/19/2021 8:35 Transplant Liver R esults for this AM CDT (HCC) procedure are in Medication Therapy the resul ts Halfway Not section. Anticoagulant CBC WITHOUT Routine 12/19/2021 8:35 Transplant Liver Results for this DIFFERENTIAL, B AM CDT (HCC) procedure are in Medication Therapy the resul ts Benefits Director Not section. Anticoagulant COMPREHENSIVE Routine 12/19/2021 8:35 Transplant Liver Results for this METABOLIC PANEL, S/P AM CDT (HCC) procedure are in Medication Therapy the resul ts Benefits Director Not section. Anticoagulant documented in this encounter Results Glucose, Fasting (12/19/2021 8:36 AM CDT) P athologist Signature Glucose, P 96 70 - 100 12/19/2021 [facility] mg/dL 8:53 AM CDT Last Intake 13 hr 12/19/2021 [facility] 8:36 AM CDT Specimen Anatomical Collection Method Collection Time Receive d Time (Source) Location / / Volume Laterality Blood (Blood, 12/19/2021 8:36 AM 12/20/19 22 8:37 Venous) CDT AM CDT Angélica Granger P.A.-C. LAB BLOOD NON ADD-ON Performing Organization Address City/[facility] Code Phon e Number [address] [address] [place] [address] System in [place] [address] Bl Tacrolimus, B (12/19/2021 8:35 AM CDT) athologist Signature Tacrolimus, B 7.8 5.0-15.0 12/20/2021 [facility] (Trough) 10:40 AM CDT ng/mL Comment: ----ADDITIONAL [...] performa nce characteristics determined by [facility] in a manner consistent with CLIA [...] Code Phon e Number [facility] [address] [place], [place] [address] SUPPORT CENTER [facility] [place] [address] Laboratory Medicine and Pathology [address] [place] (ABNORMAL) CMV DNA Detect / Quant, Plasma (12/19/2021 8:35 AM CDT) Patholo gist Method Time Signature CMV DNA <35 (A) Undetected 12/20/2021 [facility] Detect/Quant, IU/mL 1:21 PM CDT P Comment: [...] performed u sing the tika CMV test ([employer] with the tika 6800 System. Specimen Anatomical Collection Method Collection Time Receive d Time (Source) Location / / Volume Laterality Blood (Blood, 12/19/2021 8:35 AM 12/21/19 7:18 Venous) CDT AM CDT Angélica Granger P.A.-C. LAB MICROBIOLOGY - BLOOD ORD ERABLES Performing Organization Address City/State/ZIP Code Phon e Number [facility] [address] [place] [address] SUPPORT CENTER [facility] [place] [address] Laboratory Medicine and Pathology [address] [...] eGFR-Black/Afri 16 (L) >=60 12/19/2021 [facility] [place] mL/min/BSA 8:57 AM CDT Comment: ----ADDITIONAL INFORMATION---- Estimated GFR calculated using the 2009 CKD_EPI creatinine equation. eGFR Non-Black/ <15 (L) >=60 mL/min/BSA 12/19/2021 8:57 AM CDT [facility] [place] Comment: ----ADDITIONAL INFORMATION---- Estimated GFR calculated using [...] Organization Address City/State/ZIP Code Phon e Number [facility]- [address] [place] [address] [place] [address] (ABNORMAL) CBC without Differential (12/19/2021 8:35 AM CDT) [facility] gist Method Time Signature Hemoglobin 10.3 (L) [...] Organization Address City/State/ZIP Code Phon e Number [facility]- [address] [place] [address] [place] [address] System [address] documented in this encounter Visit Diagnoses Diagnosis Transplant Liver (HCC) Medication Therapy Benefits Director Not Anticoa gulant documented in this encounter Additional Health Concerns Assessment Noted Time PHQ-9 Depression Total Score: 4 11/28/2020 10:17 AM CD T documented as of this encounter Care Teams Document Control Supervisor Relationship Specialty Start Date End Date Elsewhere, Pcp PCP - General Family Medicine 07/29/17 [facility] - Laboratory Medicine 04/12/20 [place] [phone] documented as of this encounter
--- OUTSIDE RECORDS SUMMARY | 2022-05-17 18:22 | XMS_ITS | Encounter Summary ---
:1955 Author Organization [facility] Address [address] [place] [address] Care Team Providers Name Role Phone Elsewhere, Pcp Primary Care Provider Unavailable Encounter Details Date Type Department Care Team Description 12/10/2021 Office Visit Randal Coon [facility] Center for Transplantation Monserrat Yeung (Primary and Clinical Regeneration M.D. 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 - 12/10/2021 4:00 PM CDT [...] In situ Squamous cell lesion removed. 15. Unga renal imaging if on dialysis >3 years: [...] Laboratory Medicine Angélica Granger P.A.-C. [address] [place] [phone] 05/23/2022 Clinical Admitting/Central Communication Scheduling 05/27/2022 Comprehensive Visit Orthopedic Surgery Markus Sams M.D., Ph.D. [address] [place] [phone] 05/29/2022 Office Visit Otorhinolaryngology Dex Matta APRN, C.NDemetriusP., M.S.N. [address] [place] [phone] 05/29/2022 Office Visit Otorhinolaryngology Nadeem Maradiaga, Jennifer., M.S. [address] [place] [phone] 05/31/2022 Appointment Radiology Guilherme Matt, RASTA, Jennifer., M.S. [address] [place] [phone] 06/05/2022 Appointment Laboratory Medicine Angélica Granger P.A.-C. [address] [place] [phone] 06/19/2022 Appointment Laboratory Medicine Angélica Granger P.A.-C. [address] [place] [phone] 07/03/2022 Appointment Laboratory Medicine Angélica Granger P.A.-C. [address] [place] [phone] 07/17/2022 Appointment Laboratory Medicine Angélica Granger P.A.-C. [address] [place] [phone] 07/31/2022 Appointment Laboratory Medicine Angélica Granger P.A.-C. [address] [place] [phone] 08/14/2022 Appointment Laboratory Medicine Angélica Granger P.A.-C. [address] [place] [phone] 08/28/2022 Appointment Laboratory Medicine Angélica Granger P.A.-C. [address] [place] [phone] documented as of this encounter Visit Diagnoses Diagnosis Awaiting Organ Transplant - Primary documented in this encounter Additional Health Concerns Assessment Noted Time PHQ-9 Depression Total Score: 4 11/28/2020 10:17 AM CD T documented as of this encounter Care Teams Presentation Specialist Relationship Specialty Start Date End Date Elsewhere, Pcp PCP - General Family Medicine 07/29/17 [facility] - Laboratory Medicine 04/12/[address] [address] documented as of this encounter
--- OUTSIDE RECORDS SUMMARY | 2022-05-17 18:22 | XMS_ITS | Encounter Summary ---
:1955 Author Organization [facility] Address [address] [place] [address] Care Team Providers Name Role Phone Elsewhere, Pcp Primary Care Provider Unavailable Encounter Details Date Type Department Care Team Description 12/11/2021 Orders Only Curt aguirre [facility] Trung Plasencia for Transplantation and Mayuri Wyatt. 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 [address] [place] [phone] 05/23/2022 Clinical Admitting/Central Communication Scheduling 05/27/2022 Comprehensive Visit Orthopedic Surgery Markus Sams M.D., Ph.D. [address] [place] [phone] 05/29/2022 Office Visit Otorhinolaryngology Dex Matta APRN, C.N.P., M.S.N. [address] [place] [phone] 05/29/2022 Office Visit Otorhinolaryngology Nadeem Maradiaga, P.Murtaza.-Arley., M.S. [address] [place] [phone] 05/31/2022 Appointment Radiology Guilherme Matt, RASTA, PMaryanne., M.S. [address] [place] [address] [phone] 06/05/2022 Appointment Laboratory Medicine Angélica Granger P.A.-C. [address] [place] [phone] 06/19/2022 Appointment Laboratory Medicine Angélica Granger P.A.-C. [address] [place] [phone] 07/03/2022 Appointment Laboratory Medicine Angélica Granger P.A.-C. [address] [place] [phone] 07/17/2022 Appointment Laboratory Medicine Angélica Granger P.A.-C. [address] [place] [phone] 07/31/2022 Appointment Laboratory Medicine Angélica Granger P.A.-C. [address] [place] [phone] 08/14/2022 Appointment Laboratory Medicine Angélica Granger P.A.-C. [address] [place] [phone] 08/28/2022 Appointment Laboratory Medicine Angélica Granger P.A.-C. [address] [place] [phone] documented as of this encounter Visit Diagnoses Not on filedocumented in this encounter Additional Health Concerns Assessment Noted Time PHQ-9 Depression Total Score: 4 11/28/2020 10:17 AM CD T documented as of this encounter Care Teams Bezel Cutter Relationship Specialty Start Date End Date Elsewhere, Pcp PCP - General Family Medicine 07/29/17 [facility] - Laboratory Medicine 04/12/[address] [address] documented as of this encounter
--- OUTSIDE RECORDS SUMMARY | 2022-05-17 18:22 | XMS_ITS | Encounter Summary ---
:1955 Author Organization [facility] Address [address] [place] [address] Care Team Providers Name Role Phone Elsewhere, Pcp Primary Care Provider Unavailable Reason for Visit Reason Comments Labs Only Encounter Details Date Type Department Care Team Description 12/20/2021 Clinical Communication Irena Gamez [facility] Labs Only Center for R, R.N. 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 *All labs are now found in [facility] Lab - Flowsheets. For further review of labs, please review there or under Synopsis* documented in this encounter Plan of Treatment Upcoming Encounters Date Type Specialty Care Team Description 05/22/2022 Appointment Laboratory Medicine Angélica Grnager P.A.-C. [address] [place] [phone] 05/23/2022 Clinical Admitting/Central Communication Scheduling 05/27/2022 Comprehensive Visit Orthopedic Surgery Markus Sams M.D., Ph.D. [address] [place] [phone] 05/29/2022 Office Visit Otorhinolaryngology Dex Matta APRN, C.N.P., M.S.N. [address] [place] [phone] 05/29/2022 Office Visit Otorhinolaryngology Nadeem Maradiaga P.A.-C., M.S. [address] [place] [phone] 05/31/2022 Appointment Radiology Guilherme Matt MPAS, P.A.-C., M.S. [address] [place] [phone] 06/05/2022 Appointment Laboratory Medicine Angélica Granger P.A.-C. [address] [place] [phone] 06/19/2022 Appointment Laboratory Medicine Angélica Granger P.A.-C. [address] [place] [phone] 07/03/2022 Appointment Laboratory Medicine Angélica Granger P.A.-C. [address] [place] [phone] 07/17/2022 Appointment Laboratory Medicine Angélica Granger P.A.-C. [address] [place] [phone] 07/31/2022 Appointment Laboratory Medicine Angélica Granger P.A.-C. [address] [place] [phone] 08/14/2022 Appointment Laboratory Angélica Royal P.A.-C. [address] [place] [phone] 08/28/2022 Appointment Laboratory Medicine Angélica Granger P.A.-C. [address] [place] [phone] documented as of this encounter Visit Diagnoses Diagnosis Transplant Liver (HCC) Medication Therapy Clinical Research Analyst Not Anticoa gulant documented in this encounter Additional Health Concerns Assessment Noted Time PHQ-9 Depression Total Score: 4 11/28/2020 10:17 AM CD T documented as of this encounter Care Teams Control Analyst Relationship Specialty Start Date End Date Elsewhere, Pcp PCP - General Family Medicine 2/6/18 [facility] - Laboratory Medicine 04/12/20 [place] [address] documented as of this encounter
--- OUTSIDE RECORDS SUMMARY | 2022-05-17 18:22 | XMS_ITS | Encounter Summary ---
:1955 Author Organization [facility] Address [address] [place] [address] Care Team Providers Name Role Phone Elsewhere, Pcp Primary Care Provider Unavailable Reason for Visit Outpatient (Routine) - Closed Specialty Diagnoses / Procedures Referred By Contact Refer red To Contact Pulmonary Medicine Diagnoses Transplant Liver (HCC) Medication Therapy Merchandise Shopper Not Anticoagulant Immunodeficiency (HCC) Tiffanie Wan M.D. [facility] 200 [place] [address] Referral ID Status Reason Start Date Expiration Date Visits V isits Requested Authorized [id number] Closed Specialty 12/17/2021 12/17/2022 1 1 Services Required Encounter Details Date Type Department Care Team Description 12/19/2021 Virtual Visit Curt Diaz, Trans plant Liver (HCC); Center for Leonid Stern Medication Ther apy Half-Way Not Anticoagulant; Transplantation and M.DDemetrius Immunodeficiency (HCC) Clinical Regeneration 200 [facility] in [place], [place] [address] [place] [phone] [place], [place] [phone] (Work) [phone] Social History Tobacco Use Types Packs/Day Years [...] 12/15/2021 organizations such as islam groups, unions, fraAuth0 or athletic groups, or school groups? 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 - 12/19/2021 11:00 AM CDT Phone call follow-up. I apologized to Mr. Singh for cancelling our arpt-oh-oukp visit but I had a COVID positive [...] reflux causing some esophageal spasm and if dimk-bcb-sguozfk anti acid medications are not helpful then consultation with Gastroenterology would be appropriate. All questions were answered. documented in 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 [address] [place] [phone] 05/23/2022 Clinical Admitting/Central Communication Scheduling 05/27/2022 Comprehensive Visit Orthopedic Surgery Markus Sams M.D., Ph.D. [address] [place] [phone] 05/29/2022 Office Visit Otorhinolaryngology Dex Matta APRN, C.N.P., M.S.N. [address] [place] [phone] 05/29/2022 Office Visit Otorhinolaryngology Nadeem Maradiaga, PMaryanne., M.S. [address] [place] [phone] 05/31/2022 Appointment Radiology Guilherme Matt, RASTA, Jennifer., M.S. [address] [place] [phone] 06/05/2022 Appointment Laboratory Medicine Angélica Granger P.A.-C. [address] [place] [phone] 06/19/2022 Appointment Laboratory Medicine Angélica Granger P.A.-C. [address] [place] [phone] 07/03/2022 Appointment Laboratory Medicine Angélica Granger P.A.-C. [address] [place] [phone] 07/17/2022 Appointment Laboratory Medicine Angélica Granger P.A.-C. [address] [place] [phone] 07/31/2022 Appointment Laboratory Medicine Angélica Granger P.A.-C. [address] [place] [phone] 08/14/2022 Appointment Laboratory Medicine Angélica Granger P.A.-C. [address] [place] [phone] 08/28/2022 Appointment Laboratory Medicine Angélica Granger P.A.-C. [address] [place] [phone] documented as of this encounter Visit Diagnoses Diagnosis Transplant Liver (HCC) Medication Therapy Merchandise Shopper Not Anticoa gulant Immunodeficiency (HCC) documented in this encounter Additional Health Concerns Assessment Noted Time PHQ-9 Depression Total Score: 4 11/28/2020 10:17 AM CD T documented as of this encounter Care Teams Rod Machine Operator Relationship Specialty Start Date End Date Elsewhere, Pcp PCP - General Family Medicine 07/29/17 [facility] - Laboratory Medicine 04/12/[address] [address] documented as of this encounter
--- OUTSIDE RECORDS SUMMARY | 2022-05-17 18:22 | XMS_ITS | Encounter Summary ---
:1955 Author Organization [facility] Address [address] [place] [address] Care Team Providers Name Role Phone Elsewhere, Pcp Primary Care Provider Unavailable Reason for Referral Transplant (Routine) - Authorized Specialty Diagnoses / Procedures Referred By Contact Refer red To Contact Transplant Surgery / Diagnoses Transplant Liver (HCC) Medication Therapy [facility] Not Anticoagulant Screening Examination Skin Cancer Dialysis Dependent (HCC) Screening Examination Prostate Cancer Nodules Pulmonary Multiple Yusuf Umanzor [facility] Transplant Sada, M.P.H. [address] [place] [address] Referral ID Status Reason Start Date Expiration Date Visits V isits Requested Authorized [id number] Authorized 12/26/2021 12/26/2022 1 1 Scheduling Instructions ROBIN 11/2022, coordinate with rui escobar RI/CAT/PET Scan (Routine) - Authorized Specialty Diagnoses / Procedures Referred By Contact Refer red To Contact Radiology Diagnoses Transplant Liver (HCC) Medication Therapy Phone Manager Not Anticoagulant Screening Examination Skin Cancer Dialysis Dependent (HCC) Screening Examination Prostate Cancer Nodules Pulmonary Multiple Yusuf Umanzor M.D., [facility] Procedures CT Chest without IV Contrast M.P.H. [address] [place] [address] Referral ID Status Reason Start Date Expiration Date Visits V isits Requested Authorized [id number] Authorized 12/26/2021 12/26/2022 1 1 utpatient (Routine) - Closed Specialty Diagnoses / Procedures Referred By Contact Refer red To Contact Pulmonary Medicine Diagnoses Transplant Liver (HCC) Medication Therapy Phone Manager Not Anticoagulant Screening Examination Skin Cancer Dialysis Dependent (HCC) Screening Examination Prostate Cancer Nodules Pulmonary Multiple Yusuf Umanzor [facility] Sada, M.P.H. [address] [place] [address] Referral ID Status Reason Start Date Expiration Date Visits Requ ested Visits Authorized [id number] Closed 12/26/2021 12/26/2022 1 1 Scheduling Instructions ROBIN 11/2022, coordinate with rui escobar ransplant (Routine) - Authorized Specialty Diagnoses / Procedures Referred By Contact Refer red To Contact Transplant Surgery / Diagnoses Transplant Liver (HCC) Medication Therapy [facility] Not Anticoagulant Screening Examination Skin Cancer Dialysis Dependent (HCC) Screening Examination Prostate Cancer Nodules Pulmonary Multiple Yusuf Umanzor [facility] Transplant Sada, M.P.H. [address] [place] [address] Referral ID Status Reason Start Date Expiration Date Visits V isits Requested Authorized [id number] Authorized 12/26/2021 12/26/2022 1 1 Scheduling Instructions ROBIN 11/2022, coordinate with rui escobar utpatient (Routine) - Authorized Specialty Diagnoses / Procedures Referred By Contact Refer red To Contact Diagnoses Transplant Liver (HCC) Medication Therapy Phone Manager Not Anticoagulant Screening Examination Skin Cancer Dialysis Dependent (HCC) Screening Examination Prostate Cancer Nodules Pulmonary Multiple Yusuf Umanzor M.D., [facility] Procedures US Liver Transplant M.P.H. [address] [place] [address] Referral ID Status Reason Start Date Expiration Date Visits V isits Requested Authorized [id number] Authorized 12/26/2021 12/26/2022 1 1 ransplant (Routine) - Authorized Specialty Diagnoses / Procedures Referred By Contact Refer red To Contact Transplant Surgery / Diagnoses Transplant Liver (HCC) Medication Therapy Phone Manager Not Anticoagulant Screening Examination Skin Cancer Dialysis Dependent (HCC) Screening Examination Prostate Cancer Nodules Pulmonary Multiple Yusuf Umanzor, [facility] Transplant M.Rui., M.P.H. [address] [place] [address] Referral ID Status Reason Start Date Expiration Date Visits V isits Requested Authorized [id number] Authorized 12/26/2021 12/26/2022 1 1 Scheduling Instructions ROBIN 11/2022, coordinate with rui escobar ransplant (Routine) - Authorized Specialty Diagnoses / Procedures Referred By Contact Refer red To Contact Transplant Surgery / Diagnoses Transplant Liver (HCC) Medication Therapy Phone Manager Not Anticoagulant Screening Examination Skin Cancer Dialysis Dependent (HCC) Screening Examination Prostate Cancer Nodules Pulmonary Multiple Yusuf Umanzor [facility] Transplant M.Louie, M.P.H. [address] [place] [address] Referral ID Status Reason Start Date Expiration Date Visits V isits Requested Authorized [id number] Authorized 12/26/2021 12/26/2022 1 1 Scheduling Instructions ROBIN 11/2022, coordinate with rui escobar Encounter Details Date Type Department Care Team Description 12/25/2021 Orders Only Curt Mccann, Christelle Tra nsplant Liver (HCC) (Primary Dx); [facility] . 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 [address] [place] [phone] 05/23/2022 Clinical Admitting/Central Communication Scheduling 05/27/2022 Comprehensive Visit Orthopedic Surgery Markus Sams M.D., Ph.D. [address] [place] [phone] 05/29/2022 Office Visit Otorhinolaryngology Dex Matta APRN, CDemetriusNDemetriusP., M.S.N. [address] [place] [phone] 05/29/2022 Office Visit Otorhinolaryngology Nadeem Maradiaga, PMaryanne., M.S. [address] [place] [phone] 05/31/2022 Appointment Radiology Guilherme Matt, RASTA, Jennifer., M.S. [address] [place] [phone] 06/05/2022 Appointment Laboratory Medicine Angélica Granger P.A.-C. [address] [place] [phone] 06/19/2022 Appointment Laboratory Medicine Angélica Granger P.A.-C. [address] [place] [phone] 07/03/2022 Appointment Laboratory Medicine Angélica Granger P.A.-C. [address] [place] [phone] 07/17/2022 Appointment Laboratory Medicine Angélica Granger P.A.-C. [address] [place] [phone] 07/31/2022 Appointment Laboratory Medicine Angélica Granger P.A.-C. [address] [place] [address] [phone] 08/14/2022 Appointment Laboratory Medicine Angélica Granger P.A.-C. [address] [place] [phone] 08/28/2022 Appointment Laboratory Medicine Angélica Granger P.A.-C. [address] [place] [phone] Scheduled Orders Name Type Priority Associated Diagnoses Order S chedule Bilirubin, Direct Lab Routine Transplant Liver Expect ed: (HCC) 11/21/2022 Medication Therapy (Approxim ate), [facility] Not Expires: Anticoagulant 03/27/2023 Screening Examination Skin Cancer Dialysis Dependent (HCC) Screening Examination Prostate Cancer Nodules Pulmonary Multiple Comprehensive Lab Routine Transplant Liver Expected: Metabolic Panel (HCC) 11/21/2022 Medication Therapy (Approxim ate), Phone Manager Not Expires: Anticoagulant 03/27/2023 Screening Examination Skin Cancer Dialysis Dependent (HCC) Screening Examination Prostate Cancer Nodules Pulmonary Multiple Lipid Panel Lab Routine Transplant Liver Expected: (HCC) 11/21/2022 Medication Therapy (Approxim ate), [facility] Not Expires: Anticoagulant 03/27/2023 Screening Examination Skin Cancer Dialysis Dependent (HCC) Screening Examination Prostate Cancer Nodules Pulmonary Multiple Hemoglobin A1c Lab Routine Transplant Liver Expected: (HCC) 11/21/2022 Medication Therapy (Approxim ate), [facility] Not Expires: Anticoagulant 03/27/2023 Screening Examination Skin Cancer Dialysis Dependent (HCC) Screening Examination Prostate Cancer Nodules Pulmonary Multiple S-TSH Lab Routine Transplant Liver Expected: (Thyroid-Stimulating (HCC) 11/21/2022 Hormone - Sensitive) Medication Therapy ( Approximate), [facility] Not Expires: Anticoagulant 03/27/2023 Screening Examination Skin Cancer Dialysis Dependent (HCC) Screening Examination Prostate Cancer Nodules Pulmonary Multiple Uric Acid Lab Routine Transplant Liver Expected: (HCC) 11/21/2022 Medication Therapy (Approxim ate), Phone Manager Not Expires: Anticoagulant 03/27/2023 Screening Examination Skin Cancer Dialysis Dependent (HCC) Screening Examination Prostate Cancer Nodules Pulmonary Multiple Iron and Total Lab Routine Liver Disease Expected: Iron-Binding Capacity Transplant Liver (HCC) (Approximate), Medication Therapy Expires: Phone Manager Not 03/27/2023 Anticoagulant Screening Examination Skin Cancer Dialysis Dependent (HCC) Screening Examination Prostate Cancer Nodules Pulmonary Multiple 25-Hydroxyvitamin D2 Lab Routine Transplant Liver Exp ected: and D3 (HCC) 11/21/2022 Medication Therapy (Approxim ate), Phone Manager Not Expires: Anticoagulant 03/27/2023 Screening Examination Skin Cancer Dialysis Dependent (HCC) Screening Examination Prostate Cancer Nodules Pulmonary Multiple Magnesium Lab Routine Transplant Liver Expected: (HCC) 11/21/2022 Medication Therapy (Approxim ate), Phone Manager Not Expires: Anticoagulant 03/27/2023 Screening Examination Skin Cancer Dialysis Dependent (HCC) Screening Examination Prostate Cancer Nodules Pulmonary Multiple Prothrombin Time (PT) Lab Routine Transplant Liver Ex pected: (HCC) 11/21/2022 Medication Therapy (Approxim ate), Phone Manager Not Expires: Anticoagulant 03/27/2023 Screening Examination Skin Cancer Dialysis Dependent (HCC) Screening Examination Prostate Cancer Nodules Pulmonary Multiple CBC no call back, Lab Routine Transplant Liver Expect ed: reflex T/S HGB <8 (HCC) 11/21/2022 Medication Therapy (Approxim ate), [facility] Not Expires: Anticoagulant 03/27/2023 Screening Examination Skin Cancer Dialysis Dependent (HCC) Screening Examination Prostate Cancer Nodules Pulmonary Multiple Phosphorus Inorganic Lab Routine Transplant Liver Exp ected: (HCC) 11/21/2022 Medication Therapy (Approxim ate), [facility] Not Expires: Anticoagulant 03/27/2023 Screening Examination Skin Cancer Dialysis Dependent (HCC) Screening Examination Prostate Cancer Nodules Pulmonary Multiple Organ Liver TX Lab Routine Transplant Liver Expected: (HCC) 11/21/2022 Medication Therapy (Approxim ate), Phone Manager Not Expires: Anticoagulant 03/27/2023 Screening Examination Skin Cancer Dialysis Dependent (HCC) Screening Examination Prostate Cancer Nodules Pulmonary Multiple Mononucleosis RNA/DNA Lab Routine Transplant Liver Ex pected: (HCC) 11/21/2022 Medication Therapy (Approxim ate), [facility] Not Expires: Anticoagulant 03/27/2023 Screening Examination Skin Cancer Dialysis Dependent (HCC) Screening Examination Prostate Cancer Nodules Pulmonary Multiple Urinalysis with Lab Routine Transplant Liver Expected : Microscopic: Urine, (HCC) 11/21/2022 Voided Medication Therapy (Approxim ate), Phone Manager Not Expires: Anticoagulant 03/27/2023 Screening Examination Skin Cancer Dialysis Dependent (HCC) Screening Examination Prostate Cancer Nodules Pulmonary Multiple US Liver Transplant Imaging RAD - Routine (most Transplant Danielle er Expected: inpatients and all (HCC) 11/21/2022 outpatients) Medication Therapy (Approxim ate), Phone Manager Not Expires: Anticoagulant 03/27/2023 Screening Examination Skin Cancer Dialysis Dependent (HCC) Screening Examination Prostate Cancer Nodules Pulmonary Multiple CT Chest without IV Imaging RAD - Routine (most Transplant Danielle er Expected: Contrast inpatients and all (HCC) 11/21/2022 outpatients) Medication Therapy (Approxim ate), [facility] Not Expires: Anticoagulant 03/27/2023 Screening Examination Skin Cancer Dialysis Dependent (HCC) Screening Examination Prostate Cancer Nodules Pulmonary Multiple PSA (Prostate-Specific Lab Routine Transplant Liver E xpected: Antigen) Screen (HCC) 11/21/2022 Medication Therapy (Approxim ate), [facility] Not Expires: Anticoagulant 03/27/2023 Screening Examination Skin Cancer Dialysis Dependent (HCC) Screening Examination Prostate Cancer Nodules Pulmonary Multiple Tacrolimus, B Lab Routine Transplant Liver Expected: (HCC) 11/21/2022 Medication Therapy (Approxim ate), [facility] Not Expires: Anticoagulant 03/27/2023 Screening Examination Skin Cancer Dialysis Dependent (HCC) Screening Examination Prostate Cancer Nodules Pulmonary Multiple Scheduled Referrals Name Type Priority Associated Diagnoses Order S chedule Transplant Liver Outpatient Referral Routine Transplant Liver Expected: office visit (HCC) 11/21/2022 (clinic) Medication Therapy (Approxim ate), Phone Manager Not Expires: Anticoagulant 03/27/2023 Screening Examination Skin Cancer Dialysis Dependent (HCC) Screening Examination Prostate Cancer Nodules Pulmonary Multiple Transplant Liver Outpatient Referral Routine Transplant Liver Expected: office visit (HCC) 11/21/2022 (clinic) Medication Therapy (Approxim ate), Phone Manager Not Expires: Anticoagulant 03/27/2023 Screening Examination Skin Cancer Dialysis Dependent (HCC) Screening Examination Prostate Cancer Nodules Pulmonary Multiple Transplant Liver Outpatient Referral Routine Transplant Liver Expected: office visit (HCC) 11/21/2022 (clinic) Medication Therapy (Approxim ate), Phone Manager Not Expires: Anticoagulant 03/27/2023 Screening Examination Skin Cancer Dialysis Dependent (HCC) Screening Examination Prostate Cancer Nodules Pulmonary Multiple Pulmonary Medicine Outpatient Referral Routine Transplant Live r Expected: office visit (HCC) 11/21/2022 (clinic) Medication Therapy (Approxim ate), [facility] Not Expires: Anticoagulant 03/27/2023 Screening Examination Skin Cancer Dialysis Dependent (HCC) Screening Examination Prostate Cancer Nodules Pulmonary Multiple Transplant Liver Outpatient Referral Routine Transplant Liver Expected: office visit (HCC) 11/21/2022 (clinic) Medication Therapy (Approxim ate), Phone Manager Not Expires: Anticoagulant 03/27/2023 Screening Examination Skin Cancer Dialysis Dependent (HCC) Screening Examination Prostate Cancer Nodules Pulmonary Multiple documented as of this encounter Visit Diagnoses Diagnosis Transplant Liver (HCC) - Primary Medication Therapy Phone Manager Not Anticoa gulant Screening Examination Skin Cancer Dialysis Dependent (HCC) Screening Examination Prostate Cancer Nodules Pulmonary Multiple Liver Disease documented in this encounter Additional Health Concerns Assessment Noted Time PHQ-9 Depression Total Score: 4 11/28/2020 10:17 AM CD T documented as of this encounter Care Teams Customer Leader Relationship Specialty Start Date End Date Elsewhere, Pcp PCP - General Family Medicine 07/29/17 [facility] - Laboratory Medicine 04/12/20 [place] [address] documented as of this encounter
--- OUTSIDE RECORDS SUMMARY | 2022-05-17 18:22 | XMS_ITS | Encounter Summary ---
:1955 Author Organization [facility] Address [address] [place] [address] Care Team Providers Name Role Phone Elsewhere, Pcp Primary Care Provider Unavailable Reason for Visit Episode Based Medications (Routine) - Closed Specialty Diagnoses / Procedures Referred By Contact Refer red To Contact Diagnoses Transplant Liver (HCC) Anemia Colitis Cytomegalovirus (HCC) Tiffanie Wan M.D. [facility] [address] [place] [address] [address] [place] [phone] Referral ID Status Reason Start Date Expiration Date Visits Requ ested Visits Authorized [id number] Closed 12/10/2021 12/10/2022 99 99 Encounter Details Date Type Department Care Team Description 12/10/2021 Infusion Department of Tiffanie Wan Colitis C ytomegalovirus (HCC) (Primary Dx); Infusion Therapy in M.D. 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 [address] [place] [phone] 05/23/2022 Clinical Admitting/Central Communication Scheduling 05/27/2022 Comprehensive Visit Orthopedic Surgery Markus Sams M.D., Ph.D. [address] [place] [phone] 05/29/2022 Office Visit Otorhinolaryngology Dex Matta APRN CDemetriusNFabrice., M.S.N. [address] [place] [phone] 05/29/2022 Office Visit Otorhinolaryngology Nadeem Maradiaga, Jennifer., M.S. [address] [place] [phone] 05/31/2022 Appointment Radiology Guilherme Matt MPAS, Edmundo, M.S. [address] [place] [phone] 06/05/2022 Appointment Laboratory Medicine Angélica Granger P.A.-C. [address] [place] [phone] 06/19/2022 Appointment Laboratory Medicine Angélica Granger P.A.-C. [address] [place] [phone] 07/03/2022 Appointment Laboratory Medicine Angélica Granger P.A.-C. [address] [place] [phone] 07/17/2022 Appointment Laboratory Medicine Angélica Granger P.A.-C. [address] [place] [phone] 07/31/2022 Appointment Laboratory Medicine Angélica Granger P.A.-C. [address] [place] [phone] 08/14/2022 Appointment Laboratory Medicine DarlingAngélica melendrez Edmundo Stern [address] [place] [phone] 08/28/2022 Appointment Laboratory Medicine Angélica Granger P.A.-C. [address] [place] [phone] documented as of this encounter Visit Diagnoses [...] parents, and caregivers EUA fact sheet: https://www.fda.gov/media/1 18492/download Do not shake the vials. Discard the [...] 300 Left 300 mg, intramuscular, Once, On 12/10/21 4:37 PM CDT mg Ventrogluteal at 1530, For 1 dose, Patients, parents, and caregivers EUA fact sheet: https://www.fda.gov/media/741912/download Do not shake the vials. Discard the [...] documented as of this encounter Care Teams Electrolysis Operator Relationship Specialty Start Date End Date Elsewhere, Pcp PCP - General Family Medicine 07/29/17 [facility] - Laboratory Medicine 04/12/[address] [address] documented as of this encounter
--- OUTSIDE RECORDS SUMMARY | 2022-05-17 18:22 | XMS_ITS | Encounter Summary ---
:1955 Author Organization [facility] Address [address] [place] [address] Care Team Providers Name Role Phone Elsewhere, Pcp Primary Care Provider Unavailable Encounter Details Date Type Department Care Team Description 12/13/2021 Documentation Curt Anju [facility] Mei Plasencia for Transplantation and Lynn WyattS. 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 [address] [place] [address] 05/23/2022 Clinical Admitting/Central Communication Scheduling 05/27/2022 Comprehensive Visit Orthopedic Surgery Markus Sams M.D., Ph.D. [address] [place] [phone] 05/29/2022 Office Visit Otorhinolaryngology Dex Matta APRN CDemetriusNDemetriusP., M.S.N. [address] [place] [phone] 05/29/2022 Office Visit Otorhinolaryngology Nadeem Maradiaga, Edmundo, M.S. [address] [place] [phone] 05/31/2022 Appointment Radiology Guilherme Matt, RASTA, Edmundo, M.S. [address] [place] [phone] 06/05/2022 Appointment Laboratory Medicine Angélica Granger P.A.-C. [address] [place] [phone] 06/19/2022 Appointment Laboratory Medicine Angélica Granger P.A.-C. [address] [place] [phone] 07/03/2022 Appointment Laboratory Medicine Angélica Granger P.A.-C. [address] [place] [phone] 07/17/2022 Appointment Laboratory Medicine Angélica Granger P.A.-C. [address] [place] [phone] 07/31/2022 Appointment Laboratory Medicine Angélica Granger P.A.-C. [address] [place] [phone] 08/14/2022 Appointment Laboratory Medicine Angélica Granger P.A.-C. [address] [place] [phone] 08/28/2022 Appointment Laboratory Medicine Angélica Granger P.A.-C. [address] [place] [address] documented as of this encounter Visit Diagnoses Not on filedocumented in this encounter Additional Health Concerns Assessment Noted Time PHQ-9 Depression Total Score: 4 11/28/2020 10:17 AM CD T documented as of this encounter Care Teams Unified Communications Engineer Relationship Specialty Start Date End Date Elsewhere, Pcp PCP - General Family Medicine 07/29/17 [facility] - Laboratory Medicine 04/12/[address] [address] documented as of this encounter
--- OUTSIDE RECORDS SUMMARY | 2022-05-17 18:23 | XMS_ITS | Encounter Summary ---
:1955 Author Organization [facility] Address [address] [place] [address] Care Team Providers Name Role Phone Elsewhere, [...] Hypertension Other Bipolar Disorder (HCC) Otoniel Linares [facility] Transplant Hyperlipidemia Chronic Obstructive Pulmonary Disease Without Exacerbation (HCC) Anemia Screening Examination Prostate Cancer M.D. [address] [place] [phone] Referral ID Status Reason Start Date Expiration Date Visits Requ ested Visits Authorized [id number] Closed 07/23/2021 07/23/2022 1 1 Encounter Details Date Type Department Care Team Description 12/10/2021 Nurse Only Curt Rene [facility] Otoniel Irby M.D. [address] [place] [address] [phone] for Transplantation and Yolie Dubois R.N. [address] [place] [phone] Clinical Regeneration in [place], [place] [address] [place] [phone] Social History Tobacco Use Types [...] Date Recorded Male 05/16/2020 4:27 PM NETWORK PROGRAMMER documented as of this encounter Progress [...] by provider. Bruce has labs drawn at [facility]. ---- Bruce's local provider is Ryan Cole at [facility]. ---- Reviewed current test results, vital signs, and follow up plans with patient. Medications reconciled. Reviewed with patient general post transplant care. Patient verbalized understanding of all information. Patient to be seen by Transplant Center Staff for further assessment and management. Yolie Dubois R.N. - 12/10/2021 1:30 PM CDT Hi, my name is Yolie Dubois R.N. calling on behalf of your [facility] team. Due to your medical history, you [...] this treatment for prevention of COVID-19. Your [facility] care team is supporting this treatment for [...] this medication? The medication is provided to [facility] at no charge and there is no [...] medicines for prevention of COVID-19. Go to https://www.fda.gov/zmyzfrupd-apsdxorzdlrx-orj-response/aeo-rvvzy-ydgbnbzvlw-and -policy-framework/cabxrlqea-jgq-fhzdydlwdeqfh for information on the emergency use of [...] will be provided to patient/caregiver at the [facility]. Please cancel your appointment if you develop [...] Laboratory Medicine Angélica Granger P.A.-C. [address] [place] [phone] 05/23/2022 Clinical Admitting/Central Communication Scheduling 05/27/2022 Comprehensive Visit Orthopedic Surgery Markus Sams M.D., Ph.D. [address] [place] [phone] 05/29/2022 Office Visit Otorhinolaryngology Dex Matta APRN CDemetriusNDemetriusP., M.S.N. [address] [place] [phone] 05/29/2022 Office Visit Otorhinolaryngology Nadeem Maradiaga P.A.-C., M.S. [address] [place] [phone] 05/31/2022 Appointment Radiology Guilherme Matt MPAS, Edmundo, M.S. [address] [place] [phone] 06/05/2022 Appointment Laboratory Medicine Angélica Granger P.A.-C. [address] [place] [phone] 06/19/2022 Appointment Laboratory Medicine Angélica Granger P.A.-C. [address] [place] [phone] 07/03/2022 Appointment Laboratory Medicine Angélica Granger P.A.-C. [address] [place] [phone] 07/17/2022 Appointment Laboratory Medicine Angélica Granger P.A.-C. [address] [place] [phone] 07/31/2022 Appointment Laboratory Medicine Angélica Granger P.A.-C. [address] [place] [phone] 08/14/2022 Appointment Laboratory Medicine Angélica Granger P.A.-C. [address] [place] [phone] 08/28/2022 Appointment Laboratory Medicine Angélica Granger P.A.-C. [address] [place] [phone] Scheduled Orders Name Type Priority Associated Diagnoses Order S chedule CBC without Lab Routine Transplant Liver (HCC) weekly for 30 Differential Medication Therapy Occurrenc es [employer] Technician Not starting 12/10 Anticoagulant until 03/12/20 23, 17 completed Comprehensive Lab Routine Transplant Liver ([facility]) weekly for 30 Metabolic Panel Medication Therapy Occurr ences [employer] Ranger Technician Not starting 12/10 Anticoagulant until 03/12/20 23, 17 completed Glucose, Fasting Lab Routine Transplant Live r ([facility]) weekly for 30 Medication Therapy Occurrenc es [employer] Technician Not starting 12/10 Anticoagulant until 03/12/20 23, 17 completed CMV DNA Detect / Microbiology Routine Transplant Live r ([facility]) weekly for 30 Quant, Plasma Medication Therapy [facility] Not starting 12/10 Anticoagulant until 03/12/20 23, 17 completed Tacrolimus, B Lab Routine Transplant Liver (HCC) weekly for 30 Medication Therapy Occurrenc es [employer] Technician Not starting 12/10 Anticoagulant until 03/12/20 23, 17 completed documented as of this encounter Results (ABNORMAL) Tacrolimus, B (05/08/2022 8:16 AM NETWORK PROGRAMMER) athologist Signature Tacrolimus, B 2.1 (L) 5.0-15.0 05/09/2022 [facility] (Trough) 10:56 AM NETWORK PROGRAMMER ng/mL Comment: ----ADDITIONAL INFORMATION---- Target steady-state trough concentration s vary depending on the type of transplant, concomitant immunosuppressio n, clinical/institutional protocols, and time post-transplant. Results should be interpreted in conjunction with this clinical information and any physic al signs/symptoms of rejection/toxicity. Testing performed by Liquid Chromatograp hy-Tandem Mass Spectrometry (LC-MS/MS). This test was developed and its performa nce characteristics determined by [facility] in a manner consistent with CLIA requirements. This test has not been cleared or approved by the U.S. Mer d and Drug Administration. Specimen Anatomical Collection Method Collection Time Receive d Time (Source) Location / / Volume Laterality Blood (Blood, 05/08/2022 8:16 AM 05/09/20 7:42 Venous) NETWORK PROGRAMMER AM NETWORK PROGRAMMER Angélica Granger P.A.-C. LAB BLOOD NON ADD-ON Performing Organization Address City/[facility] Phon e Number [facility] [address] [place], [place] [address] SUPPORT CENTER [place], [place] [phone] [place], [place] [id number] [place] (ABNORMAL) CMV DNA Detect / Quant, Plasma (05/08/2022 8:16 AM NETWORK PROGRAMMER) [facility] Method Time Signature CMV DNA <35 (A) Undetected 05/09/2022 [facility] Detect/Quant, IU/mL 1:01 PM NETWORK PROGRAMMER P Comment: Result in log IU/mL is <1.54. CMV DNA is detected, but level present i s <35 IU/mL (<1.54 log IU/mL). This assay cannot accurately quantify CMV DNA below this level. ----ADDITIONAL INFORMATION---- The quantification range of this assay i s 35 to 10,000,000 IU/mL (1.54 log to 7.00 log IU/mL). Testing was performed u sing the tika CMV test ([employer] with the tika 6800 System. Specimen Anatomical Collection Method Collection Time Receive d Time (Source) Location / / Volume Laterality Blood (Blood, 05/08/2022 8:16 AM 05/08/20 22 7:34 Venous) NETWORK PROGRAMMER PM NETWORK PROGRAMMER Angélica Granger P.A.-C. LAB MICROBIOLOGY - BLOOD ORD ERABLES Performing Organization Address City/State/ZIP Code Phon e Number [facility] [address] [place], [place] [address] [place] [address] [facility] [address] [place] (ABNORMAL) Glucose, Fasting (05/08/2022 8:16 AM NETWORK PROGRAMMER) P athologist Signature Glucose, P 109 (H) 70 - 100 05/08/2022 [facility] mg/dL 8:36 AM NETWORK PROGRAMMER Last Intake 12 hr 05/08/2022 [facility] 8:17 AM NETWORK PROGRAMMER Specimen Anatomical Collection Method Collection Time Receive d Time (Source) Location / / Volume Laterality Blood (Blood, 05/08/2022 8:16 AM 05/08/20 8:17 Venous) NETWORK PROGRAMMER AM NETWORK PROGRAMMER Angélica Granger P.A.-C. LAB BLOOD NON ADD-ON Performing Organization Address City/[facility]/ZIP Code Phon e Number [address] [address] [place] [address] System [address] (ABNORMAL) Comprehensive Metabolic Panel (05/08/2022 8:16 AM NETWORK PROGRAMMER) Analysis Performed At Patho logist Time Signature Potassium, P 4.0 3.6 - 5.2 05/08/2022 [facility] mmol/L 8:40 AM NETWORK PROGRAMMER Sodium, P 133 (L) 135 - 145 05/08/2022 [facility] mmol/L 8:40 AM NETWORK PROGRAMMER Chloride, P 97 (L) 98 - 107 05/08/2022 [facility] mmol/L 8:40 AM NETWORK PROGRAMMER Bicarbonate, P 23 22 - 29 05/08/2022 [facility] mmol/L 8:40 AM NETWORK PROGRAMMER Anion Gap, P 13 7 - 15 05/08/2022 [facility] 8:40 AM NETWORK PROGRAMMER BUN (Blood Urea 37 (H) 8 - 24 05/08/2022 [facility] Nitrogen), P mg/dL 8:40 AM NETWORK PROGRAMMER Creatinine 2.98 (H) 0.74 - 05/08/2022 [facility] 1.35 mg/dL 8:40 AM NETWORK PROGRAMMER Estimated GFR 22 (L) >=60 05/08/2022 [facility] (eGFR) mL/min/BSA 8:40 AM NETWORK PROGRAMMER Comment: Estimated GFR calculated using the 2020 CKD_EPI creatinine equation. Calcium, Total, P 9.1 8.8 - 10.2 mg/dL 05/08/2022 8:40 AM NETWORK PROGRAMMER [facility] Glucose, P CANCELED mg/dL 05/08/2022 8:17 AM NETWORK PROGRAMMER CN[facility] Comment: Duplicate test request. Result canceled by the ancillary. Protein, Total, P 6.6 6.3 - 7.9 g/dL 05/08/2022 8:40 A M NETWORK PROGRAMMER [facility] Albumin, P 4.0 3.5 - 5.0 g/dL 05/08/2022 8:40 AM NETWORK PROGRAMMER C NFL Aspartate Aminotransferase (AST), 17 8 - 48 U/L 05/08 8:40 AM NETWORK PROGRAMMER [facility] P Alkaline Phosphatase, P 114 40 - 129 U/L 05/08/2022 8: 40 AM NETWORK PROGRAMMER [facility] Alanine Aminotransferase (ALT), P 15 7 - 55 U/L 05/08 8:40 AM NETWORK PROGRAMMER [facility] Bilirubin, Total, P 0.4 <=1.2 mg/dL 05/08/2022 8:40 AM NETWORK PROGRAMMER CN[facility] Specimen Anatomical Collection Method Collection Time Receive d Time (Source) Location / / Volume Laterality Blood (Blood, 05/08/2022 8:16 AM 05/08/20 8:17 Venous) NETWORK PROGRAMMER AM NETWORK PROGRAMMER Angélica Granger P.A.-C. LAB BLOOD ADD-ON Performing Organization Address City/State/ZIP Code Phon e Number [address] [address] [place] [address] System [address] (ABNORMAL) CBC without Differential (05/08/2022 8:16 AM NETWORK PROGRAMMER) [facility] gist Method Time Signature Hemoglobin 10.1 (L) 13.2 - 05/08/2022 [facility] 16.6 g/dL 8:38 AM NETWORK PROGRAMMER Hematocrit 31.4 (L) 38.3 - 05/08/2022 [facility] 48.6 % 8:38 AM NETWORK PROGRAMMER Erythrocytes 3.13 (L) 4.35 - 05/08/2022 [facility] 5.65 8:38 AM NETWORK PROGRAMMER x10(12)/L MCV 100.3 (H) 78.2 - 05/08/2022 [facility] 97.9 fL 8:38 AM NETWORK PROGRAMMER RBC Distrib Width 13.0 11.8 - 05/08/2022 [facility] 14.5 % 8:38 AM NETWORK PROGRAMMER Platelet Count 269 135 - 317 05/08/2022 [facility] x10(9)/L 8:38 AM NETWORK PROGRAMMER Leukocytes 5.3 3.4 - 9.6 05/08/2022 [facility] x10(9)/L 8:38 AM NETWORK PROGRAMMER Specimen Anatomical Collection Method Collection Time Receive d Time (Source) Location / / Volume Laterality Blood (Blood, 05/08/2022 8:16 AM 05/08/20 22 8:17 Venous) NETWORK PROGRAMMER AM NETWORK PROGRAMMER Angélica Granger P.A.-C. LAB BLOOD ADD-ON Performing Organization Address City/State/[facility] Code Phon e Number [address] [address] [place] [address] System [address] (ABNORMAL) Tacrolimus, B (04/24/2022 8:03 AM CDT) P athologist Signature Tacrolimus, B [...] and its performa nce characteristics determined by [facility] in a manner consistent with CLIA requirements. This test has not been cleared or approved by the U.S. Mer d and Drug Administration. Specimen Anatomical Collection Method Collection Time Receive d Time (Source) Location / / Volume Laterality Blood (Blood, 04/24/2022 8:03 AM 04/25/20 22 7:06 Venous) CDT AM CDT Angélica J Gunneson P.A.-C. LAB BLOOD NON ADD-ON Performing Organization Address [facility] Phon e Number [address] [place], [place] [address] [place], [place] [phone] [place] [address] Dr. [place] (ABNORMAL) CMV DNA Detect / Quant, Plasma (04/24/2022 8:03 AM CDT) Patholo gist Method Time Signature CMV DNA <35 (A) Undetected 04/25/2022 [facility] Detect/Quant, IU/mL 3:14 PM CDT [...] performed u sing the tika CMV test ([employer] with the tika [employer] System. Specimen Anatomical Collection Method Collection Time Receive d Time (Source) Location / / Volume Laterality Blood (Blood, 04/24/2022 8:03 AM 04/25/20 7:05 Venous) CDT AM CDT Angélica Granger P.A.-C. LAB MICROBIOLOGY - BLOOD ORD ERABLES Performing Organization Address [facility] Phon e Number [address] [place], [place] [address] [place], [place] [phone] [place] [address] Dr. [place] (ABNORMAL) Glucose, Fasting (04/24/2022 8:03 AM CDT) P athologist Signature Glucose, P 116 (H) 70 - 100 04/24/2022 [facility] mg/dL 8:32 AM CDT Last Intake 12 hr 04/24/2022 [facility] 8:05 AM CDT Specimen Anatomical Collection Method Collection Time Receive d Time (Source) Location / / Volume Laterality Blood (Blood, 04/24/2022 8:03 AM 04/24/20 22 8:05 Venous) CDT AM CDT Angélica Granger P.A.-C. LAB BLOOD NON ADD-ON Performing Organization Address City/State/ZIP Code Phon e Number [facility]- [address] [place] [address] [place] [address] System [address] (ABNORMAL) Comprehensive Metabolic Panel (04/24/2022 8:03 [...] Aminotransferase (AST), 18 8 - 48 U/L 11/02 /2022 8:36 AM CDT [facility] P Alkaline Phosphatase, [...] [facility] Code Phon e Number [address] [place] [address] [place] [address] System [address] (ABNORMAL) CBC without Differential (04/24/2022 8:03 AM CDT) [facility] Method Time Signature Hemoglobin 10.2 [...] P.A.-C. LAB BLOOD ADD-ON Performing Organization Address City/[facility]/ZIP Code Phon e Number [facility]- [address] [place] [address] [place] [address] [address] (ABNORMAL) CMV DNA Detect / Quant, Plasma (04/10/2022 8:21 AM CDT) Patholo gist Method Time Signature CMV DNA <35 (A) Undetected 04/11/2022 [facility] Detect/Quant, IU/mL 1:09 PM CDT [...] performed u sing the tika CMV test ([employer] with the tika 6800 System. Specimen Anatomical Collection Method Collection Time Receive d Time (Source) Location / / Volume Laterality Blood (Blood, 04/10/2022 8:21 AM 04/11/20 7:06 Venous) CDT AM CDT Angélica Granger P.A.-C. LAB MICROBIOLOGY - BLOOD ORD ERABLES Performing Organization Address City/[facility]/ZIP Code Phon e Number [facility] [address] [place], [place] [address] [place] [address] [facility] [address] [place] [address] Dr. [place] (ABNORMAL) Tacrolimus, B (04/10/2022 8:20 AM CDT) P athologist Signature Tacrolimus, B 1.2 (L) 5.0-15.0 04/11/2022 [facility] (Trough) 11:25 AM CDT ng/mL [...] and its performa nce characteristics determined by [facility] in a manner consistent with CLIA [...] Address City/[facility]/ZIP Code Phon e Number [facility] [address] [place] [id number] [place], [place] [address] [place] (ABNORMAL) Glucose, Fasting (04/10/2022 8:20 [...] Organization Address City/State/ZIP Code Phon e Number [address] [address] [place] [address] [address] (ABNORMAL) Comprehensive Metabolic Panel (04/10/2022 8:20 [...] P.A.-C. LAB BLOOD ADD-ON Performing Organization Address City/[facility] Code Phon e Number [facility]- [address] [place] [address] [place] [address] System [address] (ABNORMAL) CBC without Differential (04/10/2022 8:20 AM CDT) Patholo gist Method Time Signature Hemoglobin 9.8 [...] Phon e Number [facility]- [address] [place] [address] [place] [address] System [address] (ABNORMAL) Tacrolimus, B (03/27/2022 8:12 AM [...] and its performa nce characteristics determined by [facility] in a manner consistent with CLIA [...] Performing Organization Address [facility] Phon e Number [address] [place], [place] [address] SU[facility] [place], [place] [phone] [place] [address] Dr. [place] CMV DNA Detect / Quant, Plasma (03/27/2022 8:12 AM CDT) [facility] Method Time Signature CMV DNA Undetected Undetected 03/28/2022 [facility] Detect/Quant, IU/mL 2:45 PM CDT P Comment: Result in log IU/mL is Undetected. ----ADDITIONAL INFORMATION---- The quantification range of this assay i s 35 to 10,000,000 IU/mL (1.54 log to 7.00 log IU/mL). Testing was performed u sing the tika CMV test ([employer] with the tika 6800 System. Specimen Anatomical Collection Method Collection Time Receive d Time (Source) Location / / Volume Laterality Blood (Blood, 03/27/2022 8:12 AM 03/28/20 22 7:07 Venous) CDT AM CDT Angélica Granger P.A.-C. LAB MICROBIOLOGY - BLOOD ORD ERABLES Performing Organization Address [facility] Phon e Number [address] [place]IDI [place], [place] [address] SUPPORT [facility] [place] [address] [facility] [address] [place] (ABNORMAL) Glucose, Fasting (03/27/2022 8:12 [...] Phon e Number [facility]- [address] [place] [address] [place] [address] [address] (ABNORMAL) Comprehensive Metabolic Panel (03/27/2022 8:12 [...] Organization Address City/State/ZIP Code Phon e Number [address] [address] [place] [address] System [address] (ABNORMAL) CBC without Differential (03/27/2022 8:12 AM CDT) [facility] gist Method Time Signature Hemoglobin 10.6 [...] P.A.-C. LAB BLOOD ADD-ON Performing Organization Address [facility] Phon e Number [address] [address] [place] [address] [address] (ABNORMAL) Glucose, Fasting (03/20/2022 8:13 AM [...] Performing Organization Address [facility] Phon e Number [address] [address] [place] [address] (ABNORMAL) Comprehensive Metabolic Panel (03/20/2022 8:13 [...] Organization Address City/State/ZIP Code Phon e Number [address] [address] [place] [address] System in [place] [address] [address] (ABNORMAL) CBC without Differential (03/20/2022 8:13 AM CDT) [facility] gist Method Time Signature Hemoglobin 11.0 [...] Organization Address City/State/ZIP Code Phon e Number [address] [address] [place] [address] System in [place] [address] [address] (ABNORMAL) Tacrolimus, B (03/20/2022 8:12 AM CDT) athologist Signature Tacrolimus, B <1.0 (L) 5.0-15.0 03/21/2022 [facility] (Trough) 10:21 AM CDT ng/mL [...] and its performa nce characteristics determined by [facility] in a manner consistent with CLIA [...] [facility] Code Phon e Number [facility] [address] [place], [place] [address] SU[facility] [place], [place] [phone] [place] [address] [place] (ABNORMAL) CMV DNA Detect / Quant, Plasma (03/20/2022 8:12 AM CDT) Patholo gist Method Time Signature CMV DNA <35 (A) Undetected 03/21/2022 [facility] Detect/Quant, IU/mL 7:41 PM CDT [...] performed u sing the tika CMV test ([employer] with the tika [employer] System. Specimen Anatomical Collection Method Collection Time Receive d Time (Source) Location / / Volume Laterality Blood (Blood, 03/20/2022 8:12 AM 03/21/20 8:38 Venous) CDT AM CDT Angélica Granger P.A.-C. LAB MICROBIOLOGY - BLOOD ORD ERABLES Performing Organization Address [facility] Phon e Number [facility] [address] [place], [place] [address] [address] [place], [place] [phone] [place] [address] Dr. [place] (ABNORMAL) Tacrolimus, B (03/13/2022 8:00 AM CDT) athologist Signature Tacrolimus, B 1.5 (L) 5.0-15.0 03/14/2022 [facility] (Trough) 11:19 AM CDT ng/mL Comment: ----ADDITIONAL [...] and its performa nce characteristics determined by [facility] in a manner consistent with CLIA requirements. This test has not been cleared or approved by the U.S. Emr d and Drug Administration. Specimen Anatomical Collection Method Collection Time Receive d Time (Source) Location / / Volume Laterality Blood (Blood, 03/13/2022 8:00 AM 03/14/20 7:25 Venous) CDT AM CDT Angélica Granger P.A.-C. LAB BLOOD NON ADD-ON Performing Organization Address City/[facility] Phon e Number [place] [phone] [place], [place] [address] [address] [place], [place] [phone] [place] [address] Dr. [place] CMV DNA Detect / Quant, Plasma (03/13/2022 8:00 AM CDT) [facility] Time Signature CMV DNA Undetected Undetected 03/14/2022 [facility] Detect/Quant, IU/mL 9:15 PM CDT P Comment: Result in log IU/mL is Undetected. ----ADDITIONAL INFORMATION---- The quantification range of this assay i s 35 to 10,000,000 IU/mL (1.54 log to 7.00 log IU/mL). Testing was performed u sing the tika CMV test ([employer] with the tika 6800 System. Specimen Anatomical Collection Method Collection Time Receive d Time (Source) Location / / Volume Laterality Blood (Blood, 03/13/2022 8:00 AM 03/14/20 7:06 Venous) CDT AM CDT Angélica Granger P.A.-C. LAB MICROBIOLOGY - BLOOD ORD ERABLES Performing Organization Address City/[facility]/ZIP [facility] Phon e Number [facility] [address] [place] [address] [place] (ABNORMAL) Glucose, Fasting (03/13/2022 8:00 [...] BLOOD NON ADD-ON Performing Organization Address City/[facility] Phon e Number [address] [address] [place] [address] [address] (ABNORMAL) Comprehensive Metabolic Panel (03/13/2022 8:00 [...] Phon e Number [facility]- [address] [place] [address] [place] [address] [address] (ABNORMAL) CBC without Differential (03/13/2022 8:00 AM CDT) Patholo gist Method Time Signature Hemoglobin 10.8 (L) [...] Phon e Number [facility]- [address] [place] [address] [place] [address] System [address] (ABNORMAL) Glucose, Fasting (02/27/2022 8:08 AM [...] BLOOD NON ADD-ON Performing Organization Address City/[facility] Code Phon e Number [address] [address] [place] [address] [address] (ABNORMAL) Tacrolimus, B (02/27/2022 8:07 AM CDT) athologist Signature Tacrolimus, B 1.8 (L) 5.0-15.0 02/28/2022 [facility] (Trough) 11:05 AM CDT ng/mL [...] and its performa nce characteristics determined by [facility] in a manner consistent with CLIA [...] Organization Address City/State/ZIP Code Phon e Number [facility] [address] [place] [place], [place] [address] [place] [id number] [place] [address] MURILLO (ABNORMAL) CMV DNA Detect / Quant, Plasma (02/27/2022 8:07 AM CDT) Patholo gist Method Time Signature CMV DNA <35 (A) Undetected 02/28/2022 [facility] Detect/Quant, IU/mL 2:48 PM CDT [...] performed u sing the tika CMV test ([employer] with the tika [id number] System. Specimen Anatomical Collection Method Collection Time Receive d Time (Source) Location / / Volume Laterality Blood (Blood, 02/27/2022 8:07 AM 02/29/20 7:15 Venous) CDT AM CDT Angélica Granger P.A.-C. LAB MICROBIOLOGY - BLOOD ORD ERABLES Performing Organization Address City/State/ZIP Code Phon e Number [facility] SUPERIOR [facility] [address] [place], [place] 819 SUPPORT C[place], [place] [id number] [place] [address] MURILLO (ABNORMAL) Comprehensive Metabolic Panel (02/27/2022 [...] Phon e Number [facility]- [address] [place] [address] [place] [address] System [address] (ABNORMAL) CBC without Differential (02/27/2022 8:07 AM CDT) [facility] gist Method Time Signature Hemoglobin 10.7 [...] [facility] Code Phon e Number [address] [address] [place] [address] System in [address] (ABNORMAL) Tacrolimus, B (02/20/2022 8:13 AM [...] and its performa nce characteristics determined by [facility] in a manner consistent with CLIA requirements. This test has not been cleared or approved by the U.S. Mer d and Drug Administration. Specimen Anatomical Collection Method Collection Time Receive d Time (Source) Location / / Volume Laterality Blood (Blood, 02/20/2022 8:13 AM 02/22/20 22 7:33 Venous) CDT AM CDT Angélica Granger P.A.-C. LAB BLOOD NON ADD-ON Performing Organization Address City/[facility] Code Phon e Number [address] [place] [address] [address] MURILLO CMV DNA Detect / Quant, Plasma (02/20/2022 8:13 AM CDT) Patholo gist Method Time Signature CMV DNA Undetected Undetected 02/21/2022 [facility] Detect/Quant, IU/mL 12:53 PM P CDT Comment: Result in log IU/mL is Undetected. ----ADDITIONAL INFORMATION---- The quantification range of this assay i s 35 to 10,000,000 IU/mL (1.54 log to 7.00 log IU/mL). Testing was performed u sing the tika CMV test ([employer] with the tika [id number] System. Specimen Anatomical Collection Method Collection Time Receive d Time (Source) Location / / Volume Laterality Blood (Blood, 02/20/2022 8:13 AM 02/22/20 22 7:13 Venous) CDT AM CDT Angélica Granger P.A.-C. LAB MICROBIOLOGY - BLOOD ORD ERABLES Performing Organization Address [facility] Phon e Number [address] [place] [address] [address] MURILLO (ABNORMAL) Glucose, Fasting (02/20/2022 [...] Phon e Number [facility]- [address] [place] [address] [place] [address] System [address] (ABNORMAL) Comprehensive Metabolic Panel (02/20/2022 8:13 [...] Phon e Number [facility]- [address] [place] [id number] [place] [address] [place] [address] System in [address] (ABNORMAL) CBC without Differential (02/20/2022 8:13 AM CDT) [facility] gist Method Time Signature Hemoglobin 11.1 (L) [...] P.A.-C. LAB BLOOD ADD-ON Performing Organization Address City/[facility]/ZIP [facility] Phon e Number [facility]- [address] [place] [address] [place] [address] [place] [address] System in [address] (ABNORMAL) Tacrolimus, B (02/13/2022 7:47 AM [...] and its performa nce characteristics determined by [facility] in a manner consistent with CLIA [...] Address City/State/ZIP Code Phon e Number [facility] [address] [place], [place] [address] [place], [place] [address]t. [place] [address] Laboratory Medicine and Pathology [address] [place] [address] Dr. MURILLO (ABNORMAL) Glucose, Fasting (02/13/2022 7:47 AM CDT) athologist Signature Glucose, P 223 (H) 70 [...] Phon e Number [facility]- [address] [place] [address] [place] [address] System in [place] [address] [address] (ABNORMAL) Comprehensive Metabolic Panel (02/13/2022 7:47 AM [...] [facility] Code Phon e Number [address] [address] [place] [address] System [address] (ABNORMAL) CBC without Differential (02/13/2022 7:47 AM CDT) [facility] gist Method Time Signature Hemoglobin 11.4 [...] P.A.-C. LAB BLOOD ADD-ON Performing Organization Address [facility] Phon e Number [address] [address] [place] [address] System [address] CMV DNA Detect / Quant, Plasma (02/13/2022 7:46 AM CDT) [facility] Time Signature CMV DNA Undetected Undetected 02/15/2022 [facility] Detect/Quant, IU/mL 6:53 PM CDT P Comment: Result in log IU/mL is Undetected. ----ADDITIONAL INFORMATION---- The quantification range of this assay i s 35 to 10,000,000 IU/mL (1.54 log to 7.00 log IU/mL). Testing was performed u sing the tika CMV test ([employer] with the tika [employer] System. Specimen Anatomical Collection Method Collection Time Receive d Time (Source) Location / / Volume Laterality Blood (Blood, 02/13/2022 7:46 AM 02/15/20 7:43 Venous) CDT AM CDT Angélica Granger P.A.-C. LAB MICROBIOLOGY - BLOOD ORD ERABLES Performing Organization Address City/[facility]/ZIP Code Phon e Number [facility] [address] [address] [place] [address] SUPPORT CENTER [facility] [place] [address] Laboratory Medicine and Pathology [address] [place] [address] Dr. MURILLO (ABNORMAL) Tacrolimus, B (02/06/2022 8:06 AM CDT) athologist Signature Tacrolimus, B 1.5 (L) 5.0-15.0 02/07/2022 [facility] (Trough) 10:49 AM CDT ng/mL Comment: ----ADDITIONAL [...] and its performa nce characteristics determined by [facility] in a manner consistent with CLIA [...] Performing Organization Address [facility] Phon e Number [address] [place] [address] [place] [address] Laboratory Medicine and Pathology [address] [place] [address] Dr. MURILLO (ABNORMAL) CMV DNA Detect / Quant, Plasma (02/06/2022 8:06 AM CDT) [facility] Method Time Signature CMV DNA <35 (A) Undetected 02/07/2022 [facility] Detect/Quant, IU/mL 4:06 PM CDT P Comment: [...] u sing the tika CMV test ([employer] with the tika 6800 System. Specimen Anatomical Collection Method Collection Time Receive d Time (Source) Location / / Volume Laterality Blood (Blood, 02/06/2022 8:06 AM 02/08/20 22 7:50 Venous) CDT AM CDT Angélica Granger P.A.-C. LAB MICROBIOLOGY - BLOOD ORD ERABLES Performing Organization Address City/[facility] Phon e Number [address] [place] [address] 05 [facility]PPORT [facility] [place] [address] Laboratory Medicine and Pathology [address] [...] [facility] Code Phon e Number [address] [address] [place] [address] System [address] (ABNORMAL) Comprehensive Metabolic Panel (02/06/2022 8:06 [...] eGFR-Black/Afri 20 (L) >=60 02/06/2022 CNFL [place] mL/min/BSA 8:45 AM CDT Comment: ----ADDITIONAL INFORMATION---- Estimated GFR calculated using the 2009 CKD_EPI creatinine equation. eGFR Non-Black/ 17 (L) >=60 mL/min/BSA 02/06/2022 8:45 AM CDT CNFL [place] Comment: ----ADDITIONAL INFORMATION---- Estimated GFR calculated [...] Phon e Number [facility]- [address] [place] [address] [place] [address] System [address] (ABNORMAL) CBC without Differential (02/06/2022 8:06 AM CDT) [facility] gist Method Time Signature Hemoglobin 11.7 [...] [facility] Code Phon e Number [facility]- [address] [place] [address] [place] [address] System [address] (ABNORMAL) Tacrolimus, B (01/30/2022 8:04 AM [...] and its performa nce characteristics determined by [facility] in a manner consistent with CLIA [...] Performing Organization Address [facility] Phon e Number [address] [place] [address] [address] [facility] [place] [address] Laboratory Medicine and Pathology [address] [place] [address] Dr. MURILLO CMV DNA Detect / Quant, Plasma (01/30/2022 8:04 AM CDT) [facility] Method Time Signature CMV DNA Undetected Undetected 01/31/2022 [facility] Detect/Quant, IU/mL 2:38 PM CDT P Comment: Result in log IU/mL is Undetected. ----ADDITIONAL INFORMATION---- The quantification range of this assay i s 35 to 10,000,000 IU/mL (1.54 log to 7.00 log IU/mL). Testing was performed u sing the tika CMV test ([employer] with the tika 6800 System. Specimen Anatomical Collection Method Collection Time Receive d Time (Source) Location / / Volume Laterality Blood (Blood, 01/30/2022 8:04 AM 02/01/20 22 7:07 Venous) CDT AM CDT Angélica Granger P.A.-C. LAB MICROBIOLOGY - BLOOD ORD ERABLES Performing Organization Address City/[facility] Phon e Number [address] [place] [address] [address] [facility] [place] [address] Laboratory Medicine and Pathology [address] [place] [address] Dr. MURILLO (ABNORMAL) Glucose, Fasting (01/30/2022 8:04 [...] Phon e Number [facility]- [address] [place] [address] [place] [address] [address] (ABNORMAL) Comprehensive Metabolic Panel (01/30/2022 [...] eGFR-Black/Afri <15 (L) >=60 01/30/2022 CN[facility] [place] mL/min/BSA 8:36 AM CDT Comment: ----ADDITIONAL INFORMATION---- Estimated GFR calculated using the 2009 CKD_EPI creatinine equation. eGFR Non-Black/ <15 (L) >=60 mL/min/BSA 01/30/2022 8:36 AM CDT CNFL [place] Comment: ----ADDITIONAL INFORMATION---- Estimated GFR calculated [...] Phon e Number [facility]- [address] [place] [address] [place] [address] [address] (ABNORMAL) CBC without Differential (01/30/2022 8:04 AM CDT) [facility] Method Time Signature Hemoglobin 11.2 (L) 13.2 [...] P.A.-C. LAB BLOOD ADD-ON Performing Organization Address City/[facility] Phon e Number [address] [address] [place] [address] [address] (ABNORMAL) Tacrolimus, B (01/23/2022 8:11 AM CDT) P athologist Signature Tacrolimus, B 1.4 (L) 5.0-15.0 01/24/2022 [facility] (Trough) 10:49 AM CDT ng/mL Comment: ----ADDITIONAL [...] and its performa nce characteristics determined by [facility] in a manner consistent with CLIA [...] Organization Address City/State/ZIP Code Phon e Number [facility] [address] [address] [place], [place] [address] [place] [address]. [place] [address] Laboratory Medicine and Pathology [address] [place] [address] Dr. MURILLO (ABNORMAL) CMV DNA Detect / Quant, Plasma (01/23/2022 8:11 AM CDT) Patholo gist Method Time Signature CMV DNA <35 (A) Undetected 01/24/2022 [facility] Detect/Quant, IU/mL 1:06 PM CDT [...] performed u sing the tika CMV test ([employer] with the tika 6800 System. Specimen Anatomical Collection Method Collection Time Receive d Time (Source) Location / / Volume Laterality Blood (Blood, 01/23/2022 8:11 AM 01/25/20 22 7:18 Venous) CDT AM CDT Angélica Granger P.A.-C. LAB MICROBIOLOGY - BLOOD ORD ERABLES Performing Organization Address City/State/ZIP Code Phon e Number [facility] [address] [address] [place] [address] [place] [address] Laboratory Medicine and Pathology [address] [place] [address] Dr. MURILLO Glucose, Fasting (01/23/2022 8:11 AM [...] Organization Address City/State/ZIP Code Phon e Number [address] [address] [place] [address] System in [place] [address] (ABNORMAL) Comprehensive Metabolic Panel (01/23/2022 8:11 [...] eGFR-Black/Afri 20 (L) >=60 01/23/2022 CN[facility] can [place] mL/min/BSA 8:36 AM CDT Comment: ----ADDITIONAL INFORMATION---- Estimated GFR calculated using the 2009 CKD_EPI creatinine equation. eGFR Non-Black/ 17 (L) >=60 mL/min/BSA 01/23/2022 8:36 AM CDT CNFL [place] Comment: ----ADDITIONAL INFORMATION---- Estimated GFR calculated [...] Organization Address City/State/ZIP Code Phon e Number [address] [address] [place] [address] System [address] (ABNORMAL) CBC without Differential (01/23/2022 8:11 AM CDT) [facility] gist Method Time Signature Hemoglobin 12.0 [...] P.A.-C. LAB BLOOD ADD-ON Performing Organization Address City/[facility] Code Phon e Number [address] [address] [place] [address] System [address] (ABNORMAL) Tacrolimus, B (01/16/2022 8:09 AM CDT) P athologist Signature Tacrolimus, B 2.2 (L) 5.0-15.0 01/17/2022 [facility] (Trough) 10:46 AM CDT ng/mL [...] and its performa nce characteristics determined by [facility] in a manner consistent with CLIA [...] Address City/State/ZIP Code Phon e Number [facility] [address] [place] [address] [place] [address] CENTER [facility] [place] [address] Laboratory Medicine and Pathology [address] MURILLO (ABNORMAL) CMV DNA Detect / Quant, Plasma (01/16/2022 8:09 AM CDT) Patholo gist Method Time Signature CMV DNA <35 (A) Undetected 01/17/2022 [facility] Detect/Quant, IU/mL 3:56 PM CDT [...] performed u sing the tika CMV test ([employer] with the tika 6800 System. Specimen Anatomical Collection Method Collection Time Receive d Time (Source) Location / / Volume Laterality Blood (Blood, 01/16/2022 8:09 AM 01/18/20 7:07 Venous) CDT AM CDT Angélica Granger P.A.-C. LAB MICROBIOLOGY - BLOOD ORD ERABLES Performing Organization Address City/State/ZIP Code Phon e Number [facility] [address] [address] [place] [address] CENTER [facility] [place] [address] Laboratory Medicine and Pathology [address] [place] [address] Dr. MURILLO (ABNORMAL) Glucose, Fasting (01/16/2022 8:09 [...] NON ADD-ON Performing Organization Address City/[facility]/ZIP [facility] Phon e Number [address] [address] [place] [address] System [address] (ABNORMAL) Comprehensive Metabolic Panel (01/16/2022 8:09 [...] eGFR-Black/Afri 20 (L) >=60 01/16/2022 CN[facility] [place] mL/min/BSA 8:34 AM CDT Comment: ----ADDITIONAL INFORMATION---- Estimated GFR calculated using the 2009 CKD_EPI creatinine equation. eGFR Non-Black/ 18 (L) >=60 mL/min/BSA 01/16/2022 8:34 AM CDT CNFL [place] Comment: ----ADDITIONAL INFORMATION---- Estimated GFR calculated [...] P.A.-C. LAB BLOOD ADD-ON Performing Organization Address City/[facility] Phon e Number [address] [address] [place] [address] System [address] (ABNORMAL) CBC without Differential (01/16/2022 8:09 AM CDT) [facility] gist Method Time Signature Hemoglobin 11.9 (L) [...] P.A.-C. LAB BLOOD ADD-ON Performing Organization Address City/[facility] Code Phon e Number [address] [address] [place] [address] System in [place] [address] (ABNORMAL) Tacrolimus, B (01/09/2022 8:07 AM CDT) athologist Signature Tacrolimus, B 3.0 (L) 5.0-15.0 01/10/2022 [facility] (Trough) 10:24 AM CDT ng/mL Comment: ----ADDITIONAL [...] and its performa nce characteristics determined by [facility] in a manner consistent with CLIA requirements. This test has not been cleared or approved by the U.S. Mer d and Drug Administration. Specimen Anatomical Collection Method Collection Time Receive d Time (Source) Location / / Volume Laterality Blood (Blood, 01/09/2022 8:07 AM 01/11/20 7:18 Venous) CDT AM CDT Angélica Granger P.A.-C. LAB BLOOD NON ADD-ON Performing Organization Address City/State/ZIP Code Phon e Number [facility] [address] [place] [address] SUPPORT [facility] [place] [address] Laboratory Medicine and Pathology [address] M[place]ILLO (ABNORMAL) CMV DNA Detect / Quant, Plasma (01/09/2022 8:07 AM CDT) Patholo gist Method Time Signature CMV DNA 91 (A) Undetected 01/10/2022 [facility] Detect/Quant, IU/mL 2:49 PM CDT P Comment: Result in log IU/mL is 1.96. ----ADDITIONAL INFORMATION---- The quantification range of this assay i s 35 to 10,000,000 IU/mL (1.54 log to 7.00 log IU/mL). Testing was performed u sing the tika CMV test ([employer] with the [id number] System. Specimen Anatomical Collection Method Collection Time Receive d Time (Source) Location / / Volume Laterality Blood (Blood, 01/09/2022 8:07 AM 01/11/20 7:13 Venous) CDT AM CDT Angélica Granger P.A.-C. LAB MICROBIOLOGY - BLOOD ORD ERABLES Performing Organization Address City/State/ZIP Code Phon e Number [facility] [address] [place], [place] [address] [place], [place] [address]t. [place] [address] Laboratory Medicine and Pathology [address] M[place]ILLO (ABNORMAL) Glucose, Fasting (01/09/2022 8:07 [...] BLOOD NON ADD-ON Performing Organization Address City/[facility] Phon e Number [address] [address] [place] [address] System [address] (ABNORMAL) Comprehensive Metabolic Panel (01/09/2022 8:07 [...] eGFR-Black/Afri 20 (L) >=60 01/09/2022 CN[facility] [place] mL/min/BSA 8:37 AM CDT Comment: ----ADDITIONAL INFORMATION---- Estimated GFR calculated using the 2009 CKD_EPI creatinine equation. eGFR Non-Black/ 17 (L) >=60 mL/min/BSA 01/09/2022 8:37 AM CDT CNFL [place] Comment: ----ADDITIONAL INFORMATION---- Estimated GFR calculated [...] Phon e Number [facility]- [address] [place] [address] [place] [address] System [address] (ABNORMAL) CBC without Differential (01/09/2022 8:07 AM CDT) Patholo gist Method Time Signature Hemoglobin 11.3 (L) [...] Phon e Number [facility]- [address] [place] [address] [place] [address] System [address] (ABNORMAL) Tacrolimus, B (01/02/2022 8:02 AM [...] and its performa nce characteristics determined by [facility] in a manner consistent with CLIA [...] Performing Organization Address [facility] Phon e Number [facility] [address] [place] [address] Dr [place] [address] SUPPORT CENTER [facility] [place] [address] Laboratory Medicine and Pathology [address] [place] [address] Dr. MURILLO (ABNORMAL) CMV DNA Detect / Quant, Plasma (01/02/2022 8:02 AM CDT) [facility] Method Time Signature CMV DNA 65 (A) Undetected 01/03/2022 [facility] Detect/Quant, IU/mL 2:16 PM CDT P Comment: Result in log IU/mL is 1.81. ----ADDITIONAL INFORMATION---- The quantification range of this assay i s 35 to 10,000,000 IU/mL (1.54 log to 7.00 log IU/mL). Testing was performed u sing the tika CMV test ([employer] with the tika [id number] System. Specimen Anatomical Collection Method Collection Time Receive d Time (Source) Location / / Volume Laterality Blood (Blood, 01/02/2022 8:02 AM 01/04/20 22 7:09 Venous) CDT AM CDT Angélica Granger P.A.-C. LAB MICROBIOLOGY - BLOOD ORD ERABLES Performing Organization Address [facility] Phon e Number [address] [place] [address] SUPPORT CENTER [facility] [place] [address] Laboratory Medicine and Pathology [address] M[place]ILL[place] (ABNORMAL) Glucose, Fasting (01/02/2022 8:02 [...] [facility] Code Phon e Number [address] [address] [place] [address] System [address] (ABNORMAL) Comprehensive Metabolic Panel (01/02/2022 8:02 [...] eGFR-Black/Afri 18 (L) >=60 01/02/2022 CN[facility] [place] mL/min/BSA 8:36 AM CDT Comment: ----ADDITIONAL INFORMATION---- Estimated GFR calculated using the 2009 CKD_EPI creatinine equation. eGFR Non-Black/ 15 (L) >=60 mL/min/BSA 01/02/2022 8:36 AM CDT CNFL [place] Comment: ----ADDITIONAL INFORMATION---- Estimated GFR calculated [...] Phon e Number [facility]- [address] [place] [address] [place] [address] [address] (ABNORMAL) CBC without Differential (01/02/2022 8:02 AM CDT) [facility] gist Method Time Signature Hemoglobin 10.8 [...] [facility] Code Phon e Number [facility]- [address] [place] [address] [place] [address] System [address] Tacrolimus, B (12/26/2021 8:07 AM CDT) P athologist Signature Tacrolimus, B 6.0 5.0-15.0 12/27/2021 [...] and its performa nce characteristics determined by [facility] in a manner consistent with CLIA [...] Performing Organization Address [facility] Phon e Number [facility] [address] [place] [address] [address] [facility] [place] [address] Laboratory Medicine and Pathology [address] [place] [address] Dr. MURILLO (ABNORMAL) CMV DNA Detect / Quant, Plasma (12/26/2021 8:07 AM CDT) [facility] Method Time Signature CMV DNA 313 (A) Undetected 12/27/2021 [facility] Detect/Quant, IU/mL 3:07 PM CDT P Comment: Result in log IU/mL is 2.50. ----ADDITIONAL INFORMATION---- The quantification range of this assay i s 35 to 10,000,000 IU/mL (1.54 log to 7.00 log IU/mL). Testing was performed u sing the tika CMV test ([employer] with the tika [id number] System. Specimen Anatomical Collection Method Collection Time Receive d Time (Source) Location / / Volume Laterality Blood (Blood, 12/26/2021 8:07 AM 12/28/19 22 7:06 Venous) CDT AM CDT Angélica Granger P.A.-C. LAB MICROBIOLOGY - BLOOD ORD ERABLES Performing Organization Address City/[facility] Phon e Number [address] [place] [address] [address] [facility] [place] [address] Laboratory Medicine and Pathology [address] [place] [address] Dr. MURILLO (ABNORMAL) Glucose, Fasting (12/26/2021 8:07 [...] Phon e Number [facility]- [address] [place] [address] [place] [address] [place] [address] System in [place] [address] Bl (ABNORMAL) Comprehensive Metabolic Panel (12/26/2021 8:07 AM [...] eGFR-Black/Afri 17 (L) >=60 12/26/2021 CNFL can [place] mL/min/BSA 8:41 AM CDT Comment: ----ADDITIONAL INFORMATION---- Estimated GFR calculated using the 2009 CKD_EPI creatinine equation. eGFR Non-Black/ <15 (L) >=60 mL/min/BSA 12/26/2021 8:41 AM CDT CNFL Moroccan Comment: ----ADDITIONAL INFORMATION---- Estimated GFR calculated [...] [facility] Code Phon e Number [address] LAB [place] [id number] System in [address] (ABNORMAL) CBC without Differential (12/26/2021 8:07 AM CDT) [facility] Method Time Signature Hemoglobin 10.6 (L) [...] P.A.-C. LAB BLOOD ADD-ON Performing Organization Address [facility] Phon e Number [address] [address] [place] [address] System in [place] [address] Bl Glucose, Fasting (12/19/2021 8:36 AM CDT) athologist [...] Performing Organization Address [facility] Phon e Number [address] [address] [place] [address] System [address] Tacrolimus, B (12/19/2021 8:35 AM CDT) [...] and its performa nce characteristics determined by [facility] in a manner consistent with CLIA [...] Performing Organization Address [facility] Phon e Number [facility] [address] [place] [address] [address] [facility] [place] [address] Laboratory Medicine and Pathology [address] [place] [address] Dr. MURILLO (ABNORMAL) CMV DNA Detect / Quant, Plasma (12/19/2021 8:35 AM CDT) [facility] Method Time Signature CMV DNA <35 (A) Undetected 12/20/2021 [facility] Detect/Quant, IU/mL 1:21 PM CDT P Comment: [...] u sing the tika CMV test ([employer] with the tika 6800 System. Specimen Anatomical Collection Method Collection Time Receive d Time (Source) Location / / Volume Laterality Blood (Blood, 12/19/2021 8:35 AM 12/21/19 22 7:18 Venous) CDT AM CDT Angélica Granger P.A.-C. LAB MICROBIOLOGY - BLOOD ORD ERABLES Performing Organization Address City/[facility]/ZIP [facility] Phon e Number [facility] [address] [place]I [place], [place] [address] [facility] [facility] [place] [address] Laboratory Medicine and Pathology [address] [place] [address] Dr. MURILLO (ABNORMAL) Comprehensive Metabolic Panel (12/19/2021 [...] eGFR-Black/Afri 16 (L) >=60 12/19/2021 CNFL can [place]oc[place] mL/min/BSA 8:57 AM CDT Comment: ----ADDITIONAL INFORMATION---- Estimated GFR calculated using the 2009 CKD_EPI creatinine equation. eGFR Non-Black/ <15 (L) >=60 mL/min/BSA 12/19/2021 8:57 AM CDT CNFL [place] Comment: ----ADDITIONAL INFORMATION---- Estimated GFR calculated [...] [facility] Code Phon e Number [address] [address] [place] [address] System [address] (ABNORMAL) CBC without Differential (12/19/2021 8:35 AM CDT) [facility] gist Method Time Signature Hemoglobin 10.3 [...] Volume Laterality Blood (Blood, 12/19/2021 8:35 AM 06/29/20 22 8:37 Venous) CDT AM CDT Angélica Granger P.A.-C. LAB BLOOD ADD-ON Performing Organization Address City/State/ZIP Code Phon e Number [facility]- [address] [place] [address] [place] [address] [place] [address] System in [place] [address] [address] documented in this encounter Visit Diagnoses Diagnosis Transplant Liver (HCC) - Primary Medication Therapy [facility] Not Anticoa gulant Screening Examination Skin Cancer [...] as of this encounter Care Teams Personal Injury Litigation Paralegal Relationship Specialty Start Date End Date Elsewhere, Pcp PCP - General Family Medicine 07/29/17 [facility] - Laboratory Medicine 04/12/[address] [address] documented as of this encounter
--- OUTSIDE RECORDS SUMMARY | 2022-05-17 18:23 | XMS_ITS | Encounter Summary ---
:1955 Author Organization [facility] Address [address] [place] [address] Care Team Providers Name Role Phone Elsewhere, Pcp Primary Care Provider Unavailable Reason for Referral Outpatient (Routine) - Closed Specialty Diagnoses / Procedures Referred By Contact Refer red To Contact Diagnoses [facility] Pulmonary Leonid Bridges M.D. [facility] Procedures Bronchoscopy (Adult): [address] [place], [place] [phone] Referral ID Status Reason Start Date Expiration Date Visits Requ ested Visits Authorized [id number] Closed 12/05/2021 12/05/2022 1 1 Reason for Visit Outpatient (Routine) - Closed Specialty Diagnoses / Procedures Referred By Contact Refer red To Contact Diagnoses [facility] Pulmonary Leonid Bridges M.D. [facility] Procedures Bronchoscopy (Adult): [address] [place] [phone] Referral ID Status Reason Start Date Expiration Date Visits Requ ested Visits Authorized [id number] Closed 12/05/2021 12/05/2022 1 1 Encounter Details Date Type Department Care Team Description 12/07/2021 Hospital Encounter Division of Carlos Becker [facility] Pulmonary Pulmonary Medicine [facility] in [place], [address] [place], [place] 200 [facility] [address] [place], [place] [phone] (Work) [phone] Social History Tobacco Use Types Packs/Day Years [...] Date Recorded 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 Give once every 28 days. doxycycline monohydrate TAKE 1 TABLET BY 20 [...] FOUR TIMES A DAY FOR 34 DOSES alcohol swabs pads, Use as needed for [...] or open Cytomegalovirus (HCC), capsules. Medication Therapy Product Info Specialist Not Anticoagulant NIFEdipine XL (PROCARDIA Take 60 mg by mouth 0 04/29/2022 XL) 30 mg 24 hr tablet daily. pen needle, diabetic 1 Injection daily. 90 [...] Cytomegalovirus (HCC) documented as of this encounter H&P Notes Harper Jarrett Admin Closure - 12/07/2021 8:00 AM CDT Administrative Closure: This record is being filed as incomplete for a missing Interval H&P. Health Information Management Services documented in this encounter OR Notes Op Note - Carlos Becker M.D. - 12/07/2021 8:00 AM CDT Done in the [facility] Bronchoscopy, 18th Floor [facility]. PRE-OPERATIVE DIAGNOSIS Possible opportunistic infection. INDICATION: [...] Carlos Becker M.D. CT CT Job ID: [id number] documented in 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 [address] [place] [phone] 05/23/2022 Clinical Admitting/Central Communication Scheduling 05/27/2022 Comprehensive Visit Orthopedic Surgery Markus Sams M.D., Ph.D. [address] [place] [phone] 05/29/2022 Office Visit Otorhinolaryngology Dex Matta APRN, C.N.P., M.S.N. [address] [place] [phone] 05/29/2022 Office Visit Otorhinolaryngology Nadeem Maradiaga P.A.-C., M.S. [address] [place] [phone] 05/31/2022 Appointment Radiology Guilherme Matt MPAS, P.A.-C., M.S. [address] [place] [phone] 06/05/2022 Appointment Laboratory Medicine Angélica Granger P.A.-C. [address] [place] [phone] 06/19/2022 Appointment Laboratory Medicine Angélica Granger P.A.-C. [address] [place] [phone] 07/03/2022 Appointment Laboratory Medicine Angélica Granger P.A.-C. [address] [place] [phone] 07/17/2022 Appointment Laboratory Medicine Angélica Granger P.A.-C. [address] [place] [phone] 07/31/2022 Appointment Laboratory Medicine Angélica Granger P.A.-C. [address] [place] [phone] 08/14/2022 Appointment Laboratory Medicine Angélica Granger P.A.-C. [address] [place] [phone] 08/28/2022 Appointment Laboratory Medicine Angélica Granger P.A.-C. [address] [place] [phone] Scheduled Orders Name Type Priority Associated Diagnoses [...] are i n the results section. CYTOLOGY NON-BENCH MOLDER Routine 12/07/2021 8:13 AM Nod[facility] Pulmonary Results [...] Drug Administration an d is used per membership counselor's instructions. Performance characteristics were verified by [facility] in a manner consistent with CLIA requirements. Visit the CDC website: https://www.cdc.g ov/coronavirus/ for the most recent guidelines on Coron avirus testing. Fact Sheet for Healthcare Providers: https://www.fda.gov/media/819919/downloa d Fact Sheet for Patients: https://www.fda.gov/media/149875/downloa d Specimen (Source) Anatomical Collection Method Collection Time Re ceived Time Location / / Volume Laterality [facility] 12/07/2021 8:13 AM (Bronchoalveolar CDT [facility]) Leonid Simon M.D. LAB MICROBIOLOGY - GENERAL O RDERABLES Performing Organization Address City/[facility] Code Phon e Number [facility] - [address] [place], [place] [address] [facility] [place] [address] Laboratories-[facility] 200 [facility] Cytology Non-BENCH MOLDER (12/07/2021 8:13 AM CDT) Component Value Ref [...] LAB SURG PATH ORDERABLES Performing Organization Address City/[facility] Code Phon e Number [facility] - [address] [place], [place] [address] [facility] [place] [address] [facility] [address] [facility] Adenovirus PCR (12/07/2021 8:13 AM CDT) Component Value Ref Range Test Analysis Performed Pathologis t Method Time At Signature Specimen [facility], 12/09/2021 DTL Source Bronchoalveolar 5:59 PM CDT [facility] Adenovirus Negative Negative 12/09/2021 DTL PCR 5:59 PM CDT Comment: ----ADDITIONAL INFORMATION---- This test was developed and its performa nce characteristics determined by [facility] in a manner consistent with CLIA requirements. [...] City/State/ZIP Code Phon e Number [facility] - 200 [place], [place] [address] [facility] [place] [address] [facility] [address] [facility] Cell Count and Differential, BAL (12/07/2021 8:13 [...] Its performance characteri stics were determined by [facility] in a manner co nsistent with CLIA [...] Eosinophils 2 % 12/07/2021 12:29 PM CDT [facility] Comment: ----REFERENCE VALUE---- The reference range and other method per formance specifications have not been established for this body fluid. The test result must be integrate d into the clinical context for interpretation. Other Cells 13 % 12/07/2021 12:29 PM CDT [facility] Comment: ----REFERENCE VALUE---- The reference range and other method per formance specifications have not been established for this body fluid. The test result must be integrate d into the clinical context for interpretation. Comment Others are lining cells. 12/07/2021 12:2 9 PM CDT [facility] Reviewed by: Tereza 12/07/2021 12:29 PM CDT DH M Specimen (Source) Anatomical Collection Method Collection Time Re ceived Time Location / / Volume Laterality [facility] 12/07/2021 8:13 AM (Bronchoalveolar CDT [facility]) Leonid Simon M.D. LAB BODY FLUIDS AND STOOLS O GLADYS Performing Organization Address City/[facility] Code Phon e Number [facility] - [address] [place], [place] [address] [place] [address] [facility] [address] Pneumocystis PCR (12/07/2021 8:13 AM CDT) Component Value Ref Range Test Analysis Performed Pathologis t Method Time At Signature Specimen [facility], 12/08/2021 D[facility] Source Bronchoalveolar 5:16 PM [facility] CDT Pneumocystis Negative Not 12/08/2021 DTL PCR Applicable 5:16 PM CDT Comment: ----ADDITIONAL INFORMATION---- This test was developed and its performa nce characteristics determined by [facility] in a manner consistent with CLIA requirements. This test has not been cleared or approved by the U.S. Mer d and Drug Administration. Specimen (Source) Anatomical Collection Method Collection Time Re ceived Time Location / / Volume Laterality [facility] 12/07/2021 8:13 AM (Bronchoalveolar CDT [facility]) Leonid Simon M.D. LAB MICROBIOLOGY - GENERAL O GLADYS Performing Organization Address City/[facility] Code Phon e Number [facility] - [address] [place], [place] [address] [facility] [place] [address] [address] Influenza A/B And RSV, PCR, Misc (12/07/2021 [...] test has been modified from the man carlosr's instructions. Its performance characteristics were determi kaye by [facility] in a manner consistent with CLIA requirements. This test has not been cleared or approved by the U.S. Food and Drug Administration . Specimen (Source) Anatomical Collection Method Collection Time Re ceived Time Location / / Volume Laterality [facility] 12/07/2021 8:13 AM (Bronchoalveolar CDT [facility]) Leonid Simon M.D. LAB MICROBIOLOGY - GENERAL O RDERABLES Performing Organization Address City/State/ZIP Code Phon e Number [facility] - [address] [place] [address] 05 [place] [address] [address] (ABNORMAL) Bacterial Culture, Aerobic + Susc, Resp (12/07/2021 8:13 AM CDT) Patholo gist Method Time [facility] Bacterial With upper 12/09/2021 DTL Culture, respiratory/or [...] City/State/ZIP Code Phon e Number [facility] - 200 [place], [place] [address] [place] [address] [facility] [address] Nocardia Stain (12/07/2021 8:13 AM CDT) Analysis Performed At Patho logist Time Signature Nocardia Stain Negative. 12/07/2021 DTL 7:01 PM CDT Specimen (Source) Anatomical Collection Method Collection Time Re ceived Time Location / / Volume Laterality [facility] 12/07/2021 8:13 AM (Bronchoalveolar CDT [facility]) Leonid Simon M.D. LAB MICROBIOLOGY - GENERAL O RDTK Performing Organization Address City/[facility]/ZIP Code Phon e Number [facility] - [address] [place], [place] [address] [place] [address] [facility] [address] Legionella PCR (12/07/2021 8:13 AM CDT) Component Value Ref Range Test Analysis Performed Pathologis t Method Time At Signature Specimen [facility], 12/07/2021 DTL Source Bronchoalveolar 4:17 PM [facility] CDT Legionella Negative Not 12/07/2021 DTL PCR, Result Applicable 4:17 PM CDT Comment: ----ADDITIONAL INFORMATION---- This test was developed and its performa nce characteristics determined by [facility] in a manner consistent with CLIA requirements. [...] City/State/ZIP Code Phon e Number [facility] - [address] [place], [place] [address] [facility] [place] [address] [facility] [address] (ABNORMAL) Aspergillus Antigen, Bronchoalveolar Lavage (12/07/2021 8:13 AM CDT) Patholo gist Method Time Signature Aspergillus Ag, >=3.750 <0.5 12/07/2021 [facility] BAL (A) index 10:25 PM CDT Comment: [...] assay was performed using the FDA-c leared [employer] Platelia Aspergillus Galactomannan EIA. Specimen (Source) Anatomical Collection Method Collection Time Re ceived Time Location / / Volume Laterality [facility] 12/07/2021 8:13 AM (Bronchoalveolar CDT [facility]) Leonid Simon M.D. LAB MICROBIOLOGY - GENERAL O GLADYS Performing Organization Address City/[facility]/ZIP Code Phon e Number [facility] [address] [place], [place] [address] SUPPORT CENTER [facility] [place] [address] Laboratory Medicine and Pathology [address] [place] Mycobacterial Culture (12/07/2021 8:13 AM CDT) [facility] Method Time Signature Mycobacterial No growth 01/18/2022 DTL Culture after 42 1:01 PM CDT days of incubation . Specimen (Source) Anatomical Collection Method Collection Time Re ceived Time Location / / Volume Laterality [facility] 12/07/2021 8:13 AM (Bronchoalveolar CDT [facility]) Leonid Simon M.D. LAB MICROBIOLOGY - GENERAL O GLADYS Performing Organization Address City/[facility]/ZIP [facility] Phon e Number [facility] - [address] [place], [place] [address] [facility] [place] [address] Laboratories[facility] [address] Fungal Smear (12/07/2021 8:13 AM CDT) P athologist Signature Fungal Smear Negative. 12/07/2021 DTL 2:59 PM CDT Specimen (Source) Anatomical Collection Method Collection Time Re ceived Time Location / / Volume Laterality [facility] 12/07/2021 8:13 AM (Bronchoalveolar CDT [facility]) Leonid Simon M.D. LAB MICROBIOLOGY - GENERAL O RDTK Performing Organization Address City/State/ZIP Code Phon e Number [facility] - [address] [place], [place] [address] [facility] [place] [address] Laboratories[facility] [address] Legionella Culture (12/07/2021 8:13 AM CDT) Patholo gist Method Time Signature Legionella No growth 12/14/2021 DTL Culture after 7 7:56 AM CDT days of incubation. Specimen (Source) Anatomical Collection Method Collection Time Re ceived Time Location / / Volume Laterality [facility] 12/07/2021 8:13 AM (Bronchoalveolar CDT [facility]) Leonid Simon M.D. LAB MICROBIOLOGY - GENERAL O GLADYS Performing Organization Address City/State/ZIP Code Phon e Number [facility] - [address] [place], [place] [address] [facility] [place] [address] Laboratories[facility] [address] Acid Fast Smear For Mycobacterium (12/07/2021 8:13 AM CDT) Patholo gist Method Time Signature Acid Fast Smear Negative. 12/07/2021 DTL For Mycobacterium 12:35 PM CDT Specimen (Source) Anatomical Collection Method Collection Time Re ceived Time Location / / Volume Laterality [facility] 12/07/2021 8:13 AM (Bronchoalveolar CDT [facility]) Leonid Simon M.D. LAB MICROBIOLOGY - GENERAL O GLADYS Performing Organization Address City/State/ZIP Code Phon e Number [facility] - [address] [place], [place] [address] [facility] [place] [address] [facility] [address] [facility] Gram Stain (12/07/2021 8:13 AM CDT) Patholo gist Method Time Signature Gram Stain Mixed microbiota 12/07/2021 DTL White blood cells present. 10:36 AM CDT Specimen (Source) Anatomical Collection Method Collection Time Re ceived Time Location / / Volume Laterality [facility] 12/07/2021 8:13 AM (Bronchoalveolar CDT [facility]) Leonid Simon M.D. LAB MICROBIOLOGY - GENERAL O RDERABLES Performing Organization Address [facility] Phon e Number [facility] - [address] (ABNORMAL) Fungal Culture, Routine (12/07/2021 8:13 AM CDT) [facility] gist Method Time Signature Fungal SAPROPHYTIC FUNGUS 01/18/2022 [facility] Culture, Few 9:53 AM CDT Routine (A) Comment: Not further identified. Susceptibility testing is not indicated for all molds. Infectious Diseases consult is required to order mold susceptibility testing. Specimen (Source) Anatomical Collection Method Collection Time Re ceived Time Location / / Volume Laterality [facility] 12/07/2021 8:13 AM (Bronchoalveolar CDT [facility]) Leonid Simon M.D. LAB MICROBIOLOGY - GENERAL O RDERAKAJAL Performing Organization Address [facility] Phon e Number [id number] [place] [address] documented in this encounter Visit Diagnoses Diagnosis [...] Last Indicated Resolved Time COVID19 Pending 12/07/2021 12/07/2021 12/07/2021 1:40 PM CDT Assessment Noted Time PHQ-9 Depression Total Score: 4 11/28/2020 10:17 AM CD T documented as of this encounter Care Teams Palliative Care Nurse Practitioner Relationship Specialty Start Date End Date Elsewhere, Pcp PCP - General Family Medicine 07/29/17 [facility] - Laboratory Medicine 04/12/20 [place] [phone] documented as of this encounter
--- OUTSIDE RECORDS SUMMARY | 2022-05-17 18:23 | XMS_ITS | Encounter Summary ---
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 [address] [place] [address] Referral ID Status Reason Start Date Expiration Date Visits Requ ested Visits Authorized [id number] Closed 07/23/2021 07/23/2022 1 1 Encounter Details Date Type Department Care Team Description 12/10/2021 Office Visit Angélica Ching Trans plant Liver (HCC); [facility] J, P.A.-C. 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 CT CT Job ID: [id number] documented in 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 [address] [place] [phone] 05/23/2022 Clinical Admitting/Central Communication Scheduling 05/27/2022 Comprehensive Visit Orthopedic Surgery Markus Sams M.D., Ph.D. [address] [place] [phone] 05/29/2022 Office Visit Otorhinolaryngology Dex Matta APRN, C.N.P., M.S.N. [address] [place] [phone] 05/29/2022 Office Visit Otorhinolaryngology Nadeem Maradiaga P.A.-C., M.S. [address] [place] [phone] 05/31/2022 Appointment Radiology Guilherme Matt MPAS, P.A.-C., M.S. [address] [place] [phone] 06/05/2022 Appointment Laboratory Medicine Angélica Granger P.A.-C. [address] [place] [phone] 06/19/2022 Appointment Laboratory Medicine Angélica Granger P.A.-C. [address] [place] [phone] 07/03/2022 Appointment Laboratory Medicine Angélica Granger P.A.-C. [address] [place] [phone] 07/17/2022 Appointment Laboratory Medicine Angélica Granger P.A.-C. [address] [place] [phone] 07/31/2022 Appointment Laboratory Medicine Angélica Granger P.A.-C. [address] [place] [phone] 08/14/2022 Appointment Laboratory Medicine Angélica Granger P.A.-C. [address] [place] [phone] 08/28/2022 Appointment Laboratory Medicine Angélica Granger P.A.-C. [address] [place] [phone] documented as of this encounter Visit Diagnoses Diagnosis Transplant Liver (HCC) 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 Not Anticoa gulant Screening Examination Skin Cancer [...] as of this encounter Care Teams Compliance Review Officer Relationship Specialty Start Date End Date Elsewhere, Pcp PCP - General Family Medicine 07/29/17 [facility] - Laboratory Medicine 04/12/20 [place] [address] documented as of this encounter
--- OUTSIDE RECORDS SUMMARY | 2022-05-17 18:23 | XMS_ITS | Encounter Summary ---
:1955 Author Organization [facility] Address [address] [place] [address] Care Team Providers Name Role Phone Elsewhere, Pcp Primary Care Provider Unavailable Reason for Visit Transplant (Routine) - Closed Specialty Diagnoses / Procedures Referred By Contact Refer red To Contact Transplant Surgery / Diagnoses Transplant Liver (HCC) Medication Therapy Skilled Nursing Not Anticoagulant Colitis Cytomegalovirus (HCC) [facility] P.Murtaza.-C., M.S. [address] [place] [phone] Referral ID Status Reason Start Date Expiration Date Visits Requ ested Visits Authorized [id number] Closed 08/08/2021 08/08/2022 1 1 Encounter Details Date Type Department Care Team Description 12/10/2021 Office Visit Trung Swenson Infect ion Respiratory Lower (Primary Dx); Center for J PMaryanne., Acute Bronchiol itis Due To Other Specified Organisms; Transplantation and M.S. 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 Lab Results Component Value Date HGB [...] Laboratory Medicine Angélica Granger P.A.-C. [address] [place] [phone] 05/23/2022 Clinical Admitting/Central Communication Scheduling 05/27/2022 Comprehensive Visit Orthopedic Surgery Markus Sams M.D., Ph.D. [address] [place] [address] [phone] 05/29/2022 Office Visit Otorhinolaryngology Dex Matta APRN, C.N.P., M.S.N. [address] [place] [phone] 05/29/2022 Office Visit Otorhinolaryngology Nadeem Maradiaga, Jennifer., M.S. [address] [place] [address] [phone] 05/31/2022 Appointment Radiology Guilherme Matt MPAS, Edmundo, M.S. [address] [place] [address] [phone] 06/05/2022 Appointment Laboratory Medicine Angélica Granger P.A.-C. [address] [place] [phone] 06/19/2022 Appointment Laboratory Medicine Angélica Granger P.A.-C. [address] [place] [phone] 07/03/2022 Appointment Laboratory Medicine Angélica Granger P.A.-C. [address] [place] [phone] 07/17/2022 Appointment Laboratory Medicine nAgélica Granger P.A.-C. [address] [place] [phone] 07/31/2022 Appointment Laboratory Medicine Angélica Granger P.A.-C. [address] [place] [phone] 08/14/2022 Appointment Laboratory Medicine Angélica Granger P.A.-C. [address] [place] [phone] 08/28/2022 Appointment Laboratory Medicine Angélica Granger P.A.-C. [address] [place] [phone] documented as of this encounter Results Aspergillus Ag (12/10/2021 12:57 PM CDT) athologist Signature Aspergillus Ag, <0.500 <0.5 index 12/11/2021 [facility] S 2:19 PM CDT Comment: [...] Venous) PM CDT PM CDT Trung Plasencia P.A.-C., M.S. LAB MICROBIOLOGY - BLOOD O GLADYS Performing Organization Address City/State/ZIP Code Phon e Number [facility] [address] [place] [address] SUPPORT CENTER [facility] [place] [address] Laboratory Medicine and Pathology [address] [...] documented as of this encounter Care Teams Microbiology Quality Control Technician Relationship Specialty Start Date End Date Elsewhere, Pcp PCP - General Family Medicine 07/29/17 [facility] - Laboratory Medicine 04/12/20 [place] [address] documented as of this encounter
[2022-05-17 18:24] LABS: Slide Review Reflex No
--- OUTSIDE RECORDS SUMMARY | 2022-05-17 18:24 | XMS_ITS | Encounter Summary ---
:1955 Author Organization [facility] Address [address] [place] [address] Care Team Providers Name Role Phone Elsewhere, Pcp Primary Care Provider Unavailable Encounter Details Date Type Department Care Team Description 12/03/2021 Hospital Encounter Department of Otoniel Linares Liver (HCC); Laboratory Medicine Sada Tubbs Medication Therapy Shake Splitter Not Anticoa gulant; in [address] Screening Examination Skin Cancer; [place], [place] Chronic Failure Renal End St age Renal Disease Dialysis Dependent (HCC); [address] [place] [phone] Other Secondary Hypertension; [address] [phone] Other Bipolar Disorder (HCC) ; [place], [place] (Work) Hyperlipidemia; [phone] Chronic Obstructive Pulmonar y Disease Without Exacerbation (HCC); Anemia; Screening [facility] [place] Prostate Cancer Social History Tobacco Use Types [...] at Date Recorded 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 [address] [place] [phone] 05/23/2022 Clinical Admitting/Central Communication Scheduling 05/27/2022 Comprehensive Visit Orthopedic Surgery Markus Sams M.D., Ph.D. [address] [place] [phone] 05/29/2022 Office Visit Otorhinolaryngology Dex Matta APRN, C.N.P., M.S.N. [address] [place] [phone] 05/29/2022 Office Visit Otorhinolaryngology Nadeem Maradiaga, P.A.-C., M.S. [address] [place] [phone] 05/31/2022 Appointment Radiology Guilherme Matt MPAS, P.A.-C., M.S. [address] [place] [phone] 06/05/2022 Appointment Laboratory Medicine Angélica Granger P.A.-C. [address] [place] [phone] 06/19/2022 Appointment Laboratory Medicine Angélica Granger P.A.-C. [address] [place] [phone] 07/03/2022 Appointment Laboratory Medicine Angélica Granger P.A.-C. [address] [place] [phone] 07/17/2022 Appointment Laboratory Medicine Angélica Granger P.A.-C. [address] [place] [phone] 07/31/2022 Appointment Laboratory Medicine Angélica Granger P.A.-C. [address] [place] [phone] 08/14/2022 Appointment Laboratory Medicine Angélica Granger P.A.-C. [address] [place] [phone] 08/28/2022 Appointment Laboratory Medicine Angélica Granger P.A.-C. [address] [place] [phone] documented as of this encounter Procedures Procedure Name Priority Date/Time Associated Diagnosis Comme nts ALBUMIN, RANDOM, U Routine 12/03/2021 8:23 AM Transplant Liver Results for this CDT (HCC) procedure are in Medication Therapy the resul ts Shake Splitter Not section. Anticoagulant Screening Examination Skin Cancer [...] the resul ts Intermediate Not section. Anticoagulant Screening Examination Skin Cancer [...] the resul ts Intermediate Not section. Anticoagulant Screening Examination Skin Cancer [...] the resul ts Intermediate Not section. Anticoagulant Screening Examination Skin Cancer [...] City/State/ZIP Code Phon e Number [facility] [place], [place] [address] [address] [place] [address] System in [place] [address] [place] [address] System in [address] (ABNORMAL) Albumin, Random, Urine (12/03/2021 8:23 AM [...] Address City/State/ZIP Code Phon e Number [address] [address] [facility] [address] System in [address] (ABNORMAL) Urinalysis with Microscopic: Urine, Midstream [...] 8.0 12/03/2021 9:07 AM CDT CNFL Specific [place] 1.010 1.001 - 1.035 12/03/2021 9:07 AM [...] M.D. LAB URINE ORDERABLES Performing Organization Address City/State/RUST Code Phon e Number [phone] [place] [address] [place] [address] System in [address] Urinalysis with Microscopic: Urine, Voided (12/03/2021 [...] Result canceled by the ancillar y. Specific [place] CANCELED 12/03/2021 8:50 AM CDT CNFL Comment: [...] 22 8:23 Voided) CDT AM CDT Narrative [facility] - 12/03/2021 8:50 AM CDT Urinalysis w/ Microscopic was cancelled on 12/03/2021 at 08:50; Duplicate test request. Otoniel Linares M.D. LAB URINE ORDERABLES Performing Organization Address City/State/RUST Code Phon e Number [place] [address] [place] [address] [facility] [place] [address] System in [address] documented in this encounter Visit Diagnoses Diagnosis Transplant Liver (HCC) Medication Therapy Shake Splitter Not Anticoa gulant Screening Examination Skin Cancer [...] documented as of this encounter Care Teams Leaf Stamper Relationship Specialty Start Date End Date Elsewhere, Pcp PCP - General Family Medicine 07/29/17 [facility] - Laboratory Medicine 04/12/[address] [address] documented as of this encounter
--- OUTSIDE RECORDS SUMMARY | 2022-05-17 18:24 | XMS_ITS | Encounter Summary ---
:[address] [facility] Address [address] [place] [address] Care Team Providers Name Role Phone Elsewhere, Pcp Primary Care Provider Unavailable Reason for Referral Outpatient (Routine) - Closed Specialty Diagnoses / Procedures Referred By Contact Refer red To Contact Diagnoses Transplant Liver (HCC) Medication Therapy Penitentiary Not Anticoagulant Otoniel Linares M.D. 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 [facility] Procedures BMD Bone Density Spine Hips [address] [place], [place] [phone] Referral ID Status Reason Start Date Expiration Date Visits Requ ested Visits Authorized [id number] Closed 09/05/2021 09/05/2022 1 1 Encounter Details Date Type Department Care Team Description 12/05/2021 Hospital Encounter Department of Otoniel Linares Trans plant Liver (HCC); Radiology, Kd Tubbs M.D. 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 Medication Therapy Tunnel Drier Operator Not Anticoagulant NIFEdipine XL (PROCARDIA Take 60 [...] Laboratory Medicine Angélica Granger P.A.-C. [address] [place] [phone] 05/23/2022 Clinical Admitting/Central Communication Scheduling 05/27/2022 Comprehensive Visit Orthopedic Surgery Markus Sams M.D., Ph.D. [address] [place] [phone] 05/29/2022 Office Visit Otorhinolaryngology Dex Matta APRN C.N.P., M.S.N. [address] [place] [phone] 05/29/2022 Office Visit Otorhinolaryngology Nadeem Maradiaga P.A.-C., M.S. [address] [place] [phone] 05/31/2022 Appointment Radiology Guilherme Matt MPAS, P.A.-C., M.S. [address] [place] [phone] 06/05/2022 Appointment Laboratory Medicine Angélica Granger P.A.-C. [address] [place] [phone] 06/19/2022 Appointment Laboratory Medicine Angélica Granger P.A.-C. [address] [place] [phone] 07/03/2022 Appointment Laboratory Medicine Angélica Granger P.A.-C. [address] [place] [phone] 07/17/2022 Appointment Laboratory Medicine Angélica Granger P.A.-C. [address] [place] [phone] 07/31/2022 Appointment Laboratory Medicine Angléica Granger P.A.-C. [address] [place] [phone] 08/14/2022 Appointment Laboratory Medicine Angélica Granger P.A.-C. [address] [place] [address] [place] [phone] 08/28/2022 Appointment Laboratory Medicine Angélica Granger P.A.-C. [address] [place] [phone] documented as of this encounter Procedures Procedure Name Priority Date/Time Associated Diagnosis Comme nts BMD BONE DENSITY RAD - Routine 12/05/2021 12:55 Transplant Liver Re sults for this SPINE HIPS (most inpatients PM CDT (HCC) procedure are in and all Medication Therapy the resul ts outpatients) Tunnel Drier Operator Not section. Anticoagulant documented in this [...] Mineral Density (BMD) analysis perf ormed on [employer] with serial number [id number]. ? COMPARISON: Serial Comparisons Left Total Hip [...] including images and graphs, is available in [employer]. In the absence of other causes of [...] image stored in the BMD study in [employer]), the calculated ten year probability of f racture is: FRAX Risk Factors: Glucocorticoids (Filler Machine Operator surinder), Secondary Osteoporosis FRAX (10 yr probability) Major Osteoporotic Fracture: ??10.3 % Hip Fracture: ?2.5 % ? Today's spine scan is considered non-barbi gnostic according to ISCD Guidelines. Procedure Note Nicholas Sanabria M.D. - 12/05/2021For matting of this note might be different from the original. EXAM: BMD BONE DENSITY SPINE HIPS Bone Mineral Density (BMD) analysis perf ormed on [employer] with serial number [id number]. COMPARISON: Serial Comparisons Left Total Hip results: [...] including images and graphs, is available in [employer]. In the absence of other causes of [...] image stored in the BMD study in [employer]), the calculated ten year probability of f racture is: FRAX Risk Factors: Glucocorticoids (Filler Machine Operator surinder), Secondary Osteoporosis FRAX (10 yr probability) Major Osteoporotic Fracture: 10.3 % Hip Fracture: 2.5 % Today's spine scan is considered non-barbi gnostic according to ISCD Guidelines. IMPRESSION: Low bone density (Osteopenia) [employer] (region: Neck Right) Otoniel HEREDIA DXA PROCEDURES documented in this encounter Visit Diagnoses Diagnosis Transplant Liver (HCC) Medication Therapy Tunnel Drier Operator Not Anticoa gulant documented in this encounter Additional Health Concerns Assessment Noted Time PHQ-9 Depression Total Score: 4 11/28/2020 10:17 AM CD T documented as of this encounter Care Teams Turn Operator Relationship Specialty Start Date End Date Elsewhere, Pcp PCP - General Family Medicine 07/29/17 [facility] - Laboratory Medicine 04/12/20 [place] [phone] documented as of this encounter
--- OUTSIDE RECORDS SUMMARY | 2022-05-17 18:24 | XMS_ITS | Encounter Summary ---
:1955 Author Organization [facility] Address [address] [place] [address] Care Team Providers Name Role Phone Elsewhere, Pcp Primary Care Provider Unavailable Reason for Referral Outpatient (Routine) - Closed Specialty Diagnoses / Procedures Referred By Contact Refer red To Contact Diagnoses Transplant Liver (HCC) Medication Therapy Care Home Not 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 [facility] Hyperlipidemia Chronic Obstructive Pulmonary Disease Without Exacerbation (HCC) Anemia Screening Examination Prostate Cancer [address] [place] [address] Referral ID Status Reason Start Date Expiration Date Visits Requ ested Visits Authorized [id number] Closed 07/23/2021 07/23/2022 1 1 Encounter Details Date Type Department Care Team Description 12/05/2021 Hospital Encounter Department of Otoniel Linares Liver (HCC); Radiology, Kd Tubbs M.D. 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 budesonide (PULMICORT) ADD 1 [...] or open Cytomegalovirus (HCC), capsules. Medication Therapy Care Home Not Anticoagulant NIFEdipine XL (PROCARDIA Take [...] Laboratory Medicine Angélica Granger P.A.-C. [address] [place] [phone] 05/23/2022 Clinical Admitting/Central Communication Scheduling 05/27/2022 Comprehensive Visit Orthopedic Surgery Markus Sams M.D., Ph.D. [address] [place] [phone] 05/29/2022 Office Visit Otorhinolaryngology Dex Matta APRN, C.N.P., M.S.N. [address] [place] [phone] 05/29/2022 Office Visit Otorhinolaryngology Nadeem Maradiaga, PMaryanne., M.S. [address] [place] [phone] 05/31/2022 Appointment Radiology Guilherme Matt, RASTA, PMaryanne., M.S. [address] [place] [address] [phone] 06/05/2022 Appointment Laboratory Medicine Angélica Granger P.A.-C. [address] [place] [phone] 06/19/2022 Appointment Laboratory Medicine Angélica Granger P.A.-C. [address] [place] [address] [phone] 07/03/2022 Appointment Laboratory Medicine Angélica Granger P.A.-C. [address] [place] [phone] 07/17/2022 Appointment Laboratory Medicine Angélica Granger P.A.-C. [address] [place] [phone] 07/31/2022 Appointment Laboratory Medicine Angélica Granger P.A.-C. [address] [place] [phone] 08/14/2022 Appointment Laboratory Medicine Angélica Granger P.A.-C. [address] [place] [phone] 08/28/2022 Appointment Laboratory Medicine Angélica Granger P.A.-C. [address] [place] [phone] documented as of this encounter Procedures Procedure Name Priority Date/Time Associated Comments Diagnosis US LIVER RAD - Routine 12/05/2021 10:33 Transplant Liver Result s for this TRANSPLANT (most inpatients AM CDT (HCC) procedure are in and all Medication Therapy the resul ts outpatients) Accountant Assistant Not section. Anticoagulant Screening Examination Skin Cancer [...] Diagnoses Diagnosis Transplant Liver (HCC) Medication Therapy Accountant Assistant Not Anticoa gulant Screening Examination Skin Cancer [...] of this encounter Care Teams Professor Of Art History Relationship Specialty Start Date End Date Elsewhere, Pcp PCP - General Family Medicine 07/29/17 [facility] - Laboratory Medicine 04/12/20 [place] [phone] documented as of this encounter
--- OUTSIDE RECORDS SUMMARY | 2022-05-17 18:24 | XMS_ITS | Encounter Summary ---
:1955 Author Organization [facility] Address [address] [place] [address] Care Team Providers Name Role Phone Elsewhere, Pcp Primary Care Provider Unavailable Encounter Details Date Type Department Care Team Description 12/03/2021 Hospital Encounter Department of Otoniel Linares Liver (HCC); Laboratory Medicine Sada Tubbs Medication Therapy Embedded Developer Not Anticoa gulant; in [address] Screening Examination Skin Cancer; [place], [place] Chronic Failure Renal End St age Renal Disease Dialysis Dependent (HCC); [address] [place] [phone] Other Secondary Hypertension; BL[address] [phone] Other Bipolar Disorder (HCC) ; [place], [place] (Work) Hyperlipidemia; [phone] Chronic Obstructive Pulmonar y Disease Without Exacerbation (HCC); Anemia; Screening [facility] Prostate Cancer Social History Tobacco Use Types [...] Date Recorded Male 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 Medication Therapy Usp Not Anticoagulant NIFEdipine XL (PROCARDIA Take 60 [...] Laboratory Medicine Angélica Granger P.A.-C. [address] [place] [phone] 05/23/2022 Clinical Admitting/Central Communication Scheduling 05/27/2022 Comprehensive Visit Orthopedic Surgery Markus Sams M.D., Ph.D. [address] [place] [phone] 05/29/2022 Office Visit Otorhinolaryngology Dex Matta APRN, C.N.P., M.S.N. [address] [place] [phone] 05/29/2022 Office Visit Otorhinolaryngology Nadeem Maradiaga, P.A.-C., M.S. [address] [place] [phone] 05/31/2022 Appointment Radiology Guilherme Matt MPAS, P.A.-C., M.S. [address] [place] [phone] 06/05/2022 Appointment Laboratory Medicine Angélica Granger P.A.-C. [address] [place] [phone] 06/19/2022 Appointment Laboratory Medicine Angélica Granger P.A.-C. [address] [place] [phone] 07/03/2022 Appointment Laboratory Medicine Angélica Granger P.A.-C. [address] [place] [phone] 07/17/2022 Appointment Laboratory Medicine Angélica Granger P.A.-C. [address] [place] [phone] 07/31/2022 Appointment Laboratory Medicine Angélica Granger P.A.-C. [address] [place] [phone] 08/14/2022 Appointment Laboratory Medicine Angélica Granger P.A.-C. [address] [place] [phone] 08/28/2022 Appointment Laboratory Medicine Angélica Granger P.A.-C. [address] [place] [phone] documented as of this encounter Procedures Procedure Name Priority Date/Time Associated Diagnosis Comme nts CMV DNA DETECT/QUANT, Routine 12/03/2021 7:56 Transplant Liver Results for this P AM CDT (HCC) procedure are in Medication Therapy [facility] Embedded Developer Not section. Anticoagulant PROSTATE-SPECIFIC AG Routine 12/03/2021 7:56 Transplant Liver Results for this (PSA) SCRN, S AM CDT (HCC) procedure are in Medication Therapy [facility] Usp Not section. 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) Other Secondary Hypertension Other Bipolar Disorder (HCC) Hyperlipidemia Chronic Obstructive Pulmonary Disease Without Exacerbation (HCC) Anemia Screening Examination Prostate Cancer CYSTATIN C WITH EGFR Routine 12/03/2021 7:56 Transplant Liver Results for this AM CDT (HCC) procedure are in Medication Therapy [facility] ts Usp Not section. Anticoagulant Screening Examination Skin Cancer [...] the resul ts Usp Not section. 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) Other Secondary Hypertension Other Bipolar Disorder (HCC) Hyperlipidemia Chronic Obstructive Pulmonary Disease Without Exacerbation (HCC) Anemia Screening Examination Prostate Cancer IRON AND TOT Routine 12/03/2021 7:56 Transplant Liver Results for this IRON-BINDING AM CDT (HCC) procedure are in CAPACITY, S/P Medication Therapy the resu lts Embedded Developer Not section. 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) Other Secondary Hypertension Other Bipolar Disorder (HCC) Hyperlipidemia Chronic Obstructive Pulmonary Disease Without Exacerbation (HCC) Anemia Screening Examination Prostate Cancer 25-HYDROXYVITAMIN D2 Routine 12/03/2021 7:56 Transplant Liver Results for this AND D3, S AM CDT (HCC) procedure are in Medication Therapy [facility] ts Usp Not section. 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) Other Secondary Hypertension Other Bipolar Disorder (HCC) Hyperlipidemia Chronic Obstructive Pulmonary Disease Without Exacerbation (HCC) Anemia Screening Examination Prostate Cancer PROTHROMBIN TIME Routine 12/03/2021 7:56 Transplant Liver Resu lts for this (PT), P AM CDT (HCC) procedure are in Medication Therapy the resul ts Embedded Developer Not section. 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) Other Secondary Hypertension Other Bipolar Disorder (HCC) Hyperlipidemia Chronic Obstructive Pulmonary Disease Without Exacerbation (HCC) Anemia Screening Examination Prostate Cancer THYROID-STIMULATING Routine 12/03/2021 7:56 Transplant Liver R esults for this HORMONE-SENSITIVE AM CDT (HCC) procedure are in (S-TSH) Medication Therapy the resul ts Usp Not section. 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) Other Secondary Hypertension Other Bipolar Disorder (HCC) Hyperlipidemia Chronic Obstructive Pulmonary Disease Without Exacerbation (HCC) Anemia Screening Examination Prostate Cancer PARATHYROID HORMONE Routine 12/03/2021 7:56 Transplant Liver R esults for this (PTH), S AM CDT (HCC) procedure are in Medication Therapy the resul ts Embedded Developer Not section. 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) Other Secondary Hypertension Other Bipolar Disorder (HCC) Hyperlipidemia Chronic Obstructive Pulmonary Disease Without Exacerbation (HCC) Anemia Screening Examination Prostate Cancer HEMOGLOBIN A1C, B Routine 12/03/2021 7:56 Transplant Liver Res ults for this AM CDT (HCC) procedure are in Medication Therapy the resul ts Embedded Developer Not section. Anticoagulant Screening Examination Skin Cancer [...] are in Medication Therapy the resul ts Embedded Developer Not section. Anticoagulant Screening Examination Skin Cancer [...] the resul ts Usp Not section. 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) Other Secondary Hypertension Other Bipolar Disorder (HCC) Hyperlipidemia Chronic Obstructive Pulmonary Disease Without Exacerbation (HCC) Anemia Screening Examination Prostate Cancer URIC ACID, S/P Routine 12/03/2021 7:55 Transplant Liver Result s for this AM CDT (HCC) procedure are in Medication Therapy the resul ts Embedded Developer Not section. 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) Other Secondary Hypertension Other Bipolar Disorder (HCC) Hyperlipidemia Chronic Obstructive Pulmonary Disease Without Exacerbation (HCC) Anemia Screening Examination Prostate Cancer PHOSPHORUS Routine 12/03/2021 7:55 Transplant Liver Results for this (INORGANIC), S AM CDT (HCC) procedure are in Medication Therapy [facility] ts Embedded Developer Not section. 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) Other Secondary Hypertension Other Bipolar Disorder (HCC) Hyperlipidemia Chronic Obstructive Pulmonary Disease Without Exacerbation (HCC) Anemia Screening Examination Prostate Cancer MAGNESIUM, S Routine 12/03/2021 7:55 Transplant Liver Results for this AM CDT (HCC) procedure are in Medication Therapy [facility] ts Embedded Developer Not section. 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) Other Secondary Hypertension Other Bipolar Disorder (HCC) Hyperlipidemia Chronic Obstructive Pulmonary Disease Without Exacerbation (HCC) Anemia Screening Examination Prostate Cancer BILIRUBIN DIRECT, S/P Routine 12/03/2021 7:55 Transplant Liver Results for this AM CDT (HCC) procedure are in Medication Therapy [facility] ts Embedded Developer Not section. 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) Other Secondary Hypertension Other Bipolar Disorder (HCC) Hyperlipidemia Chronic Obstructive Pulmonary Disease Without Exacerbation (HCC) Anemia Screening Examination Prostate Cancer COMPREHENSIVE Routine 12/03/2021 7:55 Transplant Liver Results for this METABOLIC PANEL, S/P AM CDT (HCC) procedure are in Medication Therapy [facility] ts Embedded Developer Not section. 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) Other Secondary Hypertension Other Bipolar Disorder (HCC) Hyperlipidemia Chronic Obstructive Pulmonary Disease Without Exacerbation (HCC) Anemia Screening Examination Prostate Cancer documented in this encounter Results CMV DNA Detect / Quant, Plasma (12/03/2021 7:56 AM CDT) [facility] Method Time Signature CMV DNA Undetected Undetected 12/04/2021 [facility] Detect/Quant, IU/mL 4:00 PM CDT P Comment: Result in log IU/mL is Undetected. ----ADDITIONAL INFORMATION---- The quantification range of this assay i s 35 to 10,000,000 IU/mL (1.54 log to 7.00 log IU/mL). Testing was performed u sing the didier CMV test ([employer] with the didier [employer] System. Specimen Anatomical Collection Method Collection Time Receive d Time (Source) Location / / Volume Laterality Blood (Blood, 12/03/2021 7:56 AM 12/05/19 7:15 Venous) CDT AM CDT Otoniel Linares M.D. LAB MICROBIOLOGY - BLOOD ORD ERABLES Performing Organization Address City/[facility]/ZIP Code Phon e Number [facility] [address] [place], [place] [address] [place] [address] [place] [address] Laboratory Medicine and Pathology [address] [place] (ABNORMAL) Parathyroid Hormone (PTH) (12/03/2021 7:56 AM CDT) Analysis Performed At Patho logist Time Signature Parathyroid 120 (H) 15 - 65 12/03/2021 [facility] Hormone (PTH), S pg/mL 2:03 PM CDT Comment: Biotin has been identified by the audrey mullinsr as a potential interfering substance. Higher concentrations [...] LAB BLOOD ADD-ON Performing Organization Address City/[facility]/ZIP Code Phon e Number [facility]- [address] [place], [place] [address]harsh Gal[place]ame[place]ow [place], [place] [address] [place] [address] System in [place] [facility] [address] (ABNORMAL) Cystatin C with Estimated GFR, S [...] LAB BLOOD ADD-ON Performing Organization Address City/[facility] Phon e Number [facility] - [address] [place], [place] [address] [place] [address] Laboratories-[facility] [address] (ABNORMAL) Tacrolimus, B (12/03/2021 7:56 AM CDT) athologist Signature Tacrolimus, B 1.6 (L) 5.0-15.0 12/04/2021 [facility] (Trough) 11:38 AM CDT ng/mL Comment: ----ADDITIONAL [...] and its performa nce characteristics determined by [facility] in a manner consistent with CLIA requirements. This test has not been cleared or approved by the U.S. Mer d and Drug Administration. Specimen Anatomical Collection Method Collection Time Receive d Time (Source) Location / / Volume Laterality Blood (Blood, 12/03/2021 7:56 AM 12/05/19 7:29 Venous) CDT AM CDT Otoniel Linares M.D. LAB BLOOD NON ADD-ON Performing Organization Address City/[facility] Phon e Number [facility] [address] [place], [place] [address] [facility] [place] [address] Laboratory Medicine and Pathology [address] [place] PSA (Prostate-Specific Antigen) Screen (12/03/2021 7:56 AM CDT) athologist Signature Prostate-Specif 0.56 <=4.5 ng/mL 12/03/2021 [facility] ic Ag 2:14 PM CDT Comment: ----ADDITIONAL INFORMATION---- The testing method is an electrochemilum inescence assay manufactured by [employer] and performed on the Modular or [...] LAB BLOOD ADD-ON Performing Organization Address City/State/[facility] Code Phon e Number [facility]- [address] [place] [address] [place] [address] System in [address] Prothrombin Time (PT) (12/03/2021 7:56 AM [...] Phon e Number [facility]- [address] [place] [address] [place] [address] [place] [address] System in [address] 25-Hydroxyvitamin D2 and D3 (12/03/2021 7:56 AM CDT) athologist Signature 25-Hydroxy D2 <4.0 ng/mL 12/05/2021 [facility] 3:16 PM CDT 25-Hydroxy D3 42 ng/mL 12/05/2021 [facility] 3:16 PM CDT 25-Hydroxy D 42 ng/mL 12/05/2021 [facility] Total 3:16 PM CDT Comment: ----REFERENCE VALUE---- 25-HYDROXY D TOTAL (D2+D3) Optimum level s in the healthy population are 20-50, patients with bone disease may benefit from higher levels within this r itzel. ----ADDITIONAL INFORMATION---- This test was developed and its performa nce characteristics determined by [facility] in a manner consistent with CLIA [...] Organization Address City/State/ZIP Code Phon e Number [facility] [address] [place], [place] [address] [place] [address] [place] [address] Laboratory Medicine and Pathology [address] [...] Blood (Blood, 12/03/2021 7:56 AM 12/04/19 22 1:41 Venous) CDT PM CDT Otoniel Linares M.D. LAB BLOOD ADD-ON Performing Organization Address City/State/ZIP Code Phon e Number [facility]- [address] [place], [place] [address] [place] [address] System in [place] [address] (ABNORMAL) S-TSH (Thyroid-Stimulating Hormone [...] Address City/State/ZIP Code Phon e Number [address] [address] [facility] [place] [address] System in [address] Hemoglobin A1c (12/03/2021 7:56 AM CDT) [...] Address City/State/ZIP Code Phon e Number [address] [place] [address] [facility] [place] [address] System in [place] [address] [address] (ABNORMAL) Morphology Evaluation (12/03/2021 7:55 AM CDT) Patholo gist Method Time Signature RBC Morphology See [...] Phon e Number [facility]- [address] [place] [address] [facility] [place] [address] System in [address] Manual Differential, B (12/03/2021 7:55 AM CDT) P athologist Signature Segmented 69 50 - 75 [...] Phon e Number [facility]- [address] [place] [address] [place] [place] [address] [address] Blood Bank Hold Sample (12/03/2021 7:55 AM CDT) [facility] Method Time Signature Blood Bank HOLD 12/03/2021 [facility] Hold Sample Confirmed 2:35 PM CDT Specimen Anatomical Collection Method Collection Time Receive d Time (Source) Location / / Volume Laterality Blood 12/03/2021 7:55 AM 2 8:04 CDT AM CDT Otoniel Linares M.D. LAB BLOOD BANK TEST ORDERABL ES Performing Organization Address City/[facility]/ZIP Code Phon e Number [facility]- [address] [place] [address] [place] [address] System in [address] (ABNORMAL) CBC with Differential, Blood (12/03/2021 7:55 AM CDT) Component Value Ref Test Analysis Performed At [facility] Range Method Time Signature Hemoglobin 9.8 [...] M.D. LAB BLOOD ADD-ON Performing Organization Address [facility] Phon e Number [address] [place] [phone] [place] [place] [address] System in [place] [address] [address] (ABNORMAL) Phosphorus Inorganic (12/03/2021 7:55 AM CDT) P athologist Signature Phosphorus 4.9 (H) 2.5 - 4.5 12/03/2021 [facility] (Inorganic), P mg/dL 8:41 AM CDT Specimen Anatomical Collection Method Collection Time Receive d Time (Source) Location / / Volume Laterality Blood (Blood, 12/03/2021 7:55 AM 12/04/19 22 8:04 Venous) CDT AM CDT Otoniel Linares M.D. LAB BLOOD ADD-ON Performing Organization Address City/[facility] Phon e Number [address] [place] [address] [facility] [place] [address] System in [place] [address] [address] Magnesium (12/03/2021 7:55 AM CDT) P athologist Signature Magnesium, P 2.3 1.7 - 2.3 12/03/2021 CNFL mg/dL 8:41 AM CDT Specimen Anatomical Collection Method Collection Time Receive d Time (Source) Location / / Volume Laterality Blood (Blood, 12/03/2021 7:55 AM 12/04/19 22 8:04 Venous) CDT AM CDT Otoniel Linares M.D. LAB BLOOD ADD-ON Performing Organization Address City/[facility] Phon e Number [address] [address] [place] [address] Uric Acid (12/03/2021 7:55 AM CDT) athologist Signature Uric Acid, P 5.4 3.7 - 8.0 12/03/2021 CNFL mg/dL 8:41 AM CDT Specimen Anatomical Collection Method Collection Time Receive d Time (Source) Location / / Volume Laterality Blood (Blood, 12/03/2021 7:55 AM 12/04/19 8:04 Venous) CDT AM CDT Otoniel Linares M.D. LAB BLOOD ADD-ON Performing Organization Address [facility] Phon e Number [address] [address] [place] [address] System [address] Lipid Panel (12/03/2021 7:55 AM CDT) [...] Phon e Number [facility]- [address] [place] [address] [place] [address] System in [address] (ABNORMAL) Comprehensive Metabolic Panel (12/03/2021 7:55 [...] eGFR-Black/Afri 17 (L) >=60 12/03/2021 CNFL can Azerbaijani mL/min/BSA 8:41 AM CDT Comment: ----ADDITIONAL INFORMATION---- Estimated GFR calculated using the 2009 CKD_EPI creatinine equation. eGFR Non-Black/ <15 (L) >=60 mL/min/BSA 12/03/2021 8:41 AM CDT CNFL Azerbaijani Comment: ----ADDITIONAL INFORMATION---- Estimated GFR calculated using [...] LAB BLOOD ADD-ON Performing Organization Address City/[facility] Code Phon e Number [address] [address] [place] [address] System in [address] Bilirubin, Direct (12/03/2021 7:55 AM CDT) [...] Phon e Number [facility]- [address] [place] [address] [place] [address] [place] [address] System in [address] documented in this encounter Visit Diagnoses Diagnosis Transplant Liver (HCC) Medication Therapy Embedded Developer Not Anticoa gulant Screening Examination Skin Cancer [...] documented as of this encounter Care Teams Brick Picker Relationship Specialty Start Date End Date Elsewhere, Pcp PCP - General Family Medicine 07/29/17 [facility] - Laboratory Medicine 04/12/20 [place] [id number] documented as of this encounter
--- OUTSIDE RECORDS SUMMARY | 2022-05-17 18:24 | XMS_ITS | Encounter Summary ---
:1955 Author Organization [facility] Address [address] [place] [address] Care Team Providers Name Role Phone Elsewhere, Pcp Primary Care Provider Unavailable Reason for Referral Outpatient (Routine) - Closed Specialty Diagnoses / Procedures Referred By Contact Refer red To Contact Diagnoses Nodules Pulmonary Multiple Leonid Simon M.D. [facility] Procedures Bronchoscopy (Adult): [address] [place] [phone] Referral ID Status Reason Start Date Expiration Date Visits Requ ested Visits Authorized [id number] Closed 12/05/2021 12/05/2022 1 1 Encounter Details Date Type Department Care Team Description 12/05/2021 Orders Only Department of Leonid Simon Cardiovascular Medicine Sada Stern Multiple (Primary Dx) in [facility] rotary drier 200 [address] [facility] [address] [place] [phone] Social History Tobacco Use Types Packs/Day Years [...] 12/15/2021 organizations such as temple groups, unions, fraLutonix or athletic groups, or school groups? How [...] at Date Recorded Male 05/16/2020 4:27 PM JIGSAWYER documented as of this encounter Plan of Treatment Upcoming Encounters Date Type Specialty Care Team Description 05/22/2022 Appointment Laboratory Medicine Angélica Granger P.ADurgaC. [address] [place] [phone] 05/23/2022 Clinical Admitting/Central Communication Scheduling 05/27/2022 Comprehensive Visit Orthopedic Surgery Markus Sams M.D., Ph.D. [address] [place] [phone] 05/29/2022 Office Visit Otorhinolaryngology Dex Matta APRN, C.N.P., M.S.N. [address] [place] [phone] 05/29/2022 Office Visit Otorhinolaryngology Nadeem Maradiaga P.A.-C., M.S. [address] [place] [address] [phone] 05/31/2022 Appointment Radiology Guilherme Matt MPAS, P.A.-C., M.S. [address] [place] [address] [phone] 06/05/2022 Appointment Laboratory Medicine Angélica Granger P.A.-C. [address] [place] [phone] 06/19/2022 Appointment Laboratory Medicine Angélica Granger P.A.-C. [address] [place] [phone] 07/03/2022 Appointment Laboratory Medicine Angélica Granger P.A.-C. [address] [place] [phone] 07/17/2022 Appointment Laboratory Medicine Angélica Granger P.A.-C. [address] [place] [phone] 07/31/2022 Appointment Laboratory Medicine Angélica Granger P.A.-C. [address] [place] [phone] 08/14/2022 Appointment Laboratory Medicine Angélica Granger P.A.-C. [address] [place] [phone] 08/28/2022 Appointment Laboratory Medicine Angélica Granger P.A.-C. [address] [place] [phone] Scheduled Orders Name Type Priority Associated Diagnoses Order S chedule Bronchoscopy (Adult): Procedures Routine Nodules Pulmonary E xpected: Multiple 12/07/2021, Exp ires: 03/07/2023 documented as of this encounter Visit Diagnoses Diagnosis Nodules Pulmonary Multiple - Primary documented in this encounter Additional Health Concerns Assessment Noted Time PHQ-9 Depression Total Score: 4 11/28/2020 10:17 AM CD T documented as of this encounter Care Teams Local Superintendent Relationship Specialty Start Date End Date Elsewhere, Pcp PCP - General Family Medicine 07/29/17 [facility] - Laboratory Medicine 04/12/20 [place] [address] documented as of this encounter
--- OUTSIDE RECORDS SUMMARY | 2022-05-17 18:24 | XMS_ITS | Encounter Summary ---
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 [address] [place] [phone] Referral ID Status Reason Start Date Expiration Date Visits Requ ested Visits Authorized [id number] Closed 07/23/2021 07/23/2022 1 1 Encounter Details Date Type Department Care Team Description 12/05/2021 Comprehensive Visit Curt Diaz, Transplant Liver (HCC); Center [facility] Leonid Stern Medication Ther apy Correction Not Anticoagulant; Transplantation and M.D. 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 Bronchoscopy is scheduled for [facility] 18 on Friday12/07/2021 Exam: No acute distress/ [...] the procedure will be done Friday on [facility] 12/07/2021. He has dialysis scheduled for tomorrow. [...] Laboratory Medicine Angélica Granger P.A.-C. [address] [place] [phone] 05/23/2022 Clinical Admitting/Central Communication Scheduling 05/27/2022 Comprehensive Visit Orthopedic Surgery Markus Sams M.D., Ph.D. [address] [place] [phone] 05/29/2022 Office Visit Otorhinolaryngology Dex Matta APRN, C.N.P., M.S.N. [address] [place] [phone] 05/29/2022 Office Visit Otorhinolaryngology Nadeem Maradiaga P.A.-C., M.S. [address] [place] [phone] 05/31/2022 Appointment Radiology Guilherme Matt MPAS, P.A.-C., M.S. [address] [place] [phone] 06/05/2022 Appointment Laboratory Medicine Angélica Granger P.A.-C. [address] [place] [phone] 06/19/2022 Appointment Laboratory Medicine Angélica Granger P.A.-C. [address] [place] [phone] 07/03/2022 Appointment Laboratory Medicine Angélica Granger P.A.-C. [address] [place] [phone] 07/17/2022 Appointment Laboratory Medicine Angélica Granger P.A.-C. [address] [place] [phone] 07/31/2022 Appointment Laboratory Medicine Angélica Granger P.A.-C. [address] [place] [phone] 08/14/2022 Appointment Laboratory Medicine Angélica Granger P.A.-C. [address] [place] [phone] 08/28/2022 Appointment Laboratory Medicine Angélica Granger P.A.-C. [address] [place] [phone] documented as of this encounter Visit Diagnoses Diagnosis Transplant Liver (HCC) Medication Therapy Correction Not Anticoa gulant Screening Examination Skin Cancer [...] documented as of this encounter Care Teams Ironer Sock Relationship Specialty Start Date End Date Elsewhere, Pcp PCP - General Family Medicine 07/29/17 [facility] - Laboratory Medicine 04/12/20 [place] [address] documented as of this encounter
--- OUTSIDE RECORDS SUMMARY | 2022-05-17 18:24 | XMS_ITS | Encounter Summary ---
:1955 Author Organization [facility] Address [address] [place] [address] Care Team Providers Name Role Phone Elsewhere, Pcp Primary Care Provider Unavailable Reason for Visit Reason Comments Kidney Transplant Transplant (Routine) - Closed Specialty Diagnoses / Procedures Referred By Contact Refer red To Contact Transplant Surgery / Diagnoses Chronic Kidney Disease Stage 5 GFR Less Than 15 Dialysis Dependent (HCC) Pretransplant Recipient Evaluation Exam Willis Herrera [facility] Sada [address] [place] [phone] Referral ID Status Reason Start Date Expiration Date Visits Requ ested Visits Authorized [id number] Closed 09/27/2021 09/27/2022 1 1 Encounter Details Date Type Department Care Team Description 12/05/2021 Office Visit Curt Nash, Pretra nsplant Recipient Evaluation Exam (Primary Dx); Milka Hauser M.D. 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 15. [place] renal imaging if on dialysis >3 years: [...] Johnson Renal transplant fellow Pager [phone] Kidney and Pancreas transplant service pager [phone] documented in 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 [address] [place] [phone] 05/23/2022 Clinical Admitting/Central Communication Scheduling 05/27/2022 Comprehensive Visit Orthopedic Surgery Markus Sams M.D., Ph.D. [address] [place] [phone] 05/29/2022 Office Visit Otorhinolaryngology Dex Matta APRN, C.N.P., M.S.N. [address] [place] [phone] 05/29/2022 Office Visit Otorhinolaryngology Nadeem Maradiaga P.A.-C., M.S. [address] [place] [phone] 05/31/2022 Appointment Radiology Guilherme Matt MPAS, P.A.-C., M.S. [address] [place] [phone] 06/05/2022 Appointment Laboratory Medicine Angélica Granger P.A.-C. [address] [place] [phone] 06/19/2022 Appointment Laboratory Medicine Angélica Granger P.A.-C. [address] [place] [phone] 07/03/2022 Appointment Laboratory Medicine Angélica Granger P.A.-C. [address] [place] [phone] 07/17/2022 Appointment Laboratory Medicine Angélica Granger P.A.-C. [address] [place] [phone] 07/31/2022 Appointment Laboratory Medicine Angélica Granger P.A.-C. [address] [place] [phone] 08/14/2022 Appointment Laboratory Medicine Angélica Granger P.A.-C. [address] [place] [phone] 08/28/2022 Appointment Laboratory Medicine Angélica Granger P.A.-C. [address] [place] [phone] documented as of this encounter Visit Diagnoses Diagnosis Pretransplant Recipient Evaluation Exam - Primary Chronic Kidney Disease Stage 5 GFR Less Than 15 Dialysis Dependent (HCC) documented in this encounter Additional Health Concerns Assessment Noted Time PHQ-9 Depression Total Score: 4 11/28/2020 10:17 AM CD T documented as of this encounter Care Teams Pulping Machine Operator Relationship Specialty Start Date End Date Elsewhere, Pcp PCP - General Family Medicine 07/29/17 [facility] - Laboratory Medicine 04/12/20 [place] [phone] documented as of this encounter
--- OUTSIDE RECORDS SUMMARY | 2022-05-17 18:24 | XMS_ITS | Encounter Summary ---
:1955 Author Organization [facility] Address [address] [place] [address] Care Team Providers Name Role Phone Elsewhere, Pcp Primary Care Provider Unavailable Reason for Referral Outpatient (Routine) - Closed Specialty Diagnoses / Procedures Referred By Contact Refer red To Contact Diagnoses Transplant Liver (HCC) Medication Therapy Usp Not 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 [facility] Hyperlipidemia Chronic Obstructive Pulmonary Disease Without Exacerbation (HCC) Anemia Screening Examination Prostate Cancer [address] Procedures DX Chest AP or PA and [place]ateral 2 [place] [address] Referral ID Status Reason Start Date Expiration Date Visits Requ ested Visits Authorized [id number] Closed 07/23/2021 07/23/2022 1 1 Reason for Visit Outpatient (Routine) - Closed Specialty Diagnoses / Procedures Referred By Contact Refer red To Contact Diagnoses Transplant Liver (HCC) Medication Therapy Usp Not 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) Other Secondary Hypertension Other Bipolar Disorder (HCC) Otonile Linares M.D. [facility] Hyperlipidemia Chronic Obstructive Pulmonary Disease Without Exacerbation (HCC) Anemia Screening Examination Prostate Cancer [address] Procedures DX Chest AP or PA and [place]ateral 2 [place] [address] Referral ID Status Reason Start Date Expiration Date Visits Requ ested Visits Authorized [id number] Closed 07/23/2021 07/23/2022 1 1 Encounter Details Date Type Department Care Team Description 12/05/2021 Hospital Encounter Department of Otoniel Linares Liver (HCC); Radiology, Chance Tubbs M.D. 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 Medication Therapy [facility] Director Not Anticoagulant NIFEdipine XL (PROCARDIA Take 60 [...] Laboratory Medicine Angélica Granger P.A.-C. [address] [place] [phone] 05/23/2022 Clinical Admitting/Central Communication Scheduling 05/27/2022 Comprehensive Visit Orthopedic Surgery Markus Sams M.D., Ph.D. [address] [place] [phone] 05/29/2022 Office Visit Otorhinolaryngology Dex Matta APRN, C.N.P., M.S.N. [address] [place] [phone] 05/29/2022 Office Visit Otorhinolaryngology Nadeem Maradiaga, Jennifer., M.S. [address] [place] [phone] 05/31/2022 Appointment Radiology Guilherme Matt, RASTA, Jennifer., M.S. [address] [place] [phone] 06/05/2022 Appointment Laboratory Medicine Angélica Granger P.A.-C. [address] [place] [phone] 06/19/2022 Appointment Laboratory Medicine Angélica Granger P.A.-C. [address] [place] [phone] 07/03/2022 Appointment Laboratory Medicine Angélica Granger P.A.-C. [address] [place] [phone] 07/17/2022 Appointment Laboratory Medicine Angélica Granger P.A.-C. [address] [place] [phone] 07/31/2022 Appointment Laboratory Medicine Angélica Granger P.A.-C. [address] [place] [phone] 08/14/2022 Appointment Laboratory Medicine Angélica Granger P.A.-C. [address] [place] [phone] 08/28/2022 Appointment Laboratory Medicine Angélica Granger P.A.-C. [address] [place] [phone] documented as of this encounter Procedures Procedure Name Priority Date/Time Associated Comments Diagnosis DX CHEST AP OR PA RAD - Routine 12/05/2021 11:56 Transplant Liver R esults for this AND LATERAL 2 (most inpatients AM CDT (HCC) procedure are in VIEWS and all Medication Therapy the resul ts outpatients) [facility] Director Not section. Anticoagulant Screening Examination Skin Cancer [...] edema. Aortic calcifications. [facility] DAREN RAMIRES documented in this encounter Visit Diagnoses Diagnosis Transplant Liver (HCC) Medication Therapy Usp Not Anticoa gulant Screening Examination Skin Cancer [...] documented as of this encounter Care Teams Commanding Officer Garage Relationship Specialty Start Date End Date Elsewhere, Pcp PCP - General Family Medicine 07/29/17 [facility] - Laboratory Medicine 04/12/20 [place] [phone] documented as of this encounter
--- OUTSIDE RECORDS SUMMARY | 2022-05-17 18:24 | XMS_ITS | Encounter Summary ---
:1955 Author Organization [facility] Address [address] [place] [address] Care Team Providers Name Role Phone Elsewhere, Pcp Primary Care Provider Unavailable Reason for Visit Transplant (Routine) - Closed Specialty Diagnoses / Procedures Referred By Contact Refer red To Contact Transplant Surgery / Diagnoses Chronic Kidney Disease Stage 5 GFR Less Than 15 Dialysis Dependent (HCC) Pretransplant Recipient Evaluation Exam Willis Herrera [facility]plant Bonny.DDemetrius [address] [place] [phone] Referral ID Status Reason Start Date Expiration Date Visits Requ ested Visits Authorized [id number] Closed 09/27/2021 09/27/2022 1 1 Encounter Details Date Type Department Care Team Description 12/05/2021 Clinical Support Mylene Bello M.D. [address] [place] [phone] Chronic Kidney Disease Stage 5 GFR Less Than 15 Dialysis Dependent (HCC); Center for Maritza Hernandes L.I.C.SDemetriusW., M.S.W. 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 - 12/05/2021 8:30 AM CDT Psychosocial Assessment SUBJECTIVE Mr. Singh returns today for a pre-transplant psychosocial visit. Patient is 66 y.o. 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 Are there any financial concerns/barriers? no Insurance/Medications: Patient???s primary insurance is: MEDICARE A AND B Secondary insurance: [employer] [place] [employer] Medication coverage: BCBS Is this a new insurance plan since last social work visit? no If new insurance this insurance underwriter asked patient to investigate medication coverage for [...] the transplant process. Patient was provided this insurance underwriter???s contact information should any questions or concerns [...] Laboratory Medicine Angélica Granger P.A.-C. [address] [place] [phone] 05/23/2022 Clinical Admitting/Central Communication Scheduling 05/27/2022 Comprehensive Visit Orthopedic Surgery Markus Sams M.D., Ph.D. [address] [place] [phone] 05/29/2022 Office Visit Otorhinolaryngology Dex Matta APRN CDebbie., M.S.N. [address] [place] [phone] 05/29/2022 Office Visit Otorhinolaryngology Nadeem Maradiaga, Edmundo, M.S. [address] [place] [phone] 05/31/2022 Appointment Radiology Guilherme Matt, RASTA, Edmundo, M.S. [address] [place] [phone] 06/05/2022 Appointment Laboratory Medicine Angélica Granger P.A.-C. [address] [place] [phone] 06/19/2022 Appointment Laboratory Medicine Angélica Granger P.A.-C. [address] [place] [phone] 07/03/2022 Appointment Laboratory Medicine Angélica Granger P.A.-C. [address] [place] [phone] 07/17/2022 Appointment Laboratory Medicine Angélica Granger P.A.-C. [address] [place] [phone] 07/31/2022 Appointment Laboratory Medicine Angélica Granger P.A.-C. [address] [place] [phone] 08/14/2022 Appointment Laboratory Medicine Angélica Granger P.A.-C. [address] [place] [phone] 08/28/2022 Appointment Laboratory Medicine Angélica Granger P.A.-C. [address] [place] [phone] documented as of this encounter Visit Diagnoses Diagnosis Chronic Kidney Disease Stage 5 GFR Less Than 15 Dialysis Dependent (HCC) Pretransplant Recipient Evaluation Exam documented in this encounter Additional Health Concerns Assessment Noted Time PHQ-9 Depression Total Score: 4 11/28/2020 10:17 AM CD T documented as of this encounter Care Teams Step Finisher Relationship Specialty Start Date End Date Elsewhere, Pcp PCP - General Family Medicine 07/29/17 [facility] - Laboratory Medicine 04/12/[address] [address] documented as of this encounter
--- OUTSIDE RECORDS SUMMARY | 2022-05-17 18:25 | XMS_ITS | Encounter Summary ---
:1955 Author Organization [facility] Address [address] [place] [address] Care Team Providers Name Role Phone Elsewhere, Pcp Primary Care Provider Unavailable Encounter Details Date Type Department Care Team Description 11/13/2021 Clinical Communication Irena Gamez [facility] for R, R.N. 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 *All labs are now found in [employer] - Lab - Flowsheets. For further review of labs, please review there or under Synopsis* documented in 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 [address] [place] [phone] 05/23/2022 Clinical Admitting/Central Communication Scheduling 05/27/2022 Comprehensive Visit Orthopedic Surgery Markus Sams M.D., Ph.D. [address] [place] [phone] 05/29/2022 Office Visit Otorhinolaryngology Dex Matta APRN, C.N.P., M.S.N. [address] [place] [phone] 05/29/2022 Office Visit Otorhinolaryngology Nadeem Maradiaga P.A.-C., M.S. [address] [place] [address] [phone] 05/31/2022 Appointment Radiology Guilherme Matt MPAS, P.A.-C., M.S. [address] [place] [phone] 06/05/2022 Appointment Laboratory Medicine Angélica Granger P.A.-C. [address] [place] [phone] 06/19/2022 Appointment Laboratory Medicine Angélica Granger P.A.-C. [address] [place] [address] [phone] 07/03/2022 Appointment Laboratory Medicine Angélica Granger P.A.-C. [address] [place] [address] [phone] 07/17/2022 Appointment Laboratory Medicine Angélica Granger P.A.-C. [address] [place] [phone] 07/31/2022 Appointment Laboratory Medicine Angélica Granger P.A.-C. [address] [place] [phone] 08/14/2022 Appointment Laboratory Medicine Angélica Granger P.A.-C. [address] [place] [phone] 08/28/2022 Appointment Laboratory Medicine Angélica Granger P.A.-C. [address] [place] [phone] documented as of this encounter Visit Diagnoses Not on filedocumented in this encounter Additional Health Concerns Assessment Noted Time PHQ-9 Depression Total Score: 4 11/28/2020 10:17 AM CD T documented as of this encounter Care Teams Mushroom Picker Relationship Specialty Start Date End Date Elsewhere, Pcp PCP - General Family Medicine 07/29/17 [facility] - Laboratory Medicine 04/12/[address] [address] documented as of this encounter
--- OUTSIDE RECORDS SUMMARY | 2022-05-17 18:25 | XMS_ITS | Encounter Summary ---
:1955 Author Organization [facility] Address [address] [place] [address] Care Team Providers Name Role Phone Elsewhere, Pcp Primary Care Provider Unavailable Encounter Details Date Type Department Care Team Description 11/15/2021 Clinical Communication Department of Cora [facility]at[facility] in , R.N. 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 [address] [place] [phone] 05/29/2022 Office Visit Otorhinolaryngology Dex Matta APRN, C.N.P., M.S.N. [address] [place] [phone] 05/29/2022 Office Visit Otorhinolaryngology Nadeem Maradiaga, Jennifer., M.S. [address] [place] [phone] 05/31/2022 Appointment Radiology Guilherme Matt, RASTA, Edmundo, M.S. [address] [place] [phone] 06/05/2022 Appointment Laboratory Medicine Angélica Granger P.A.-C. [address] [place] [address] [phone] 06/19/2022 Appointment Laboratory Medicine Angélica Granger P.A.-C. [address] [place] [phone] 07/03/2022 Appointment Laboratory Medicine Angélica Granger P.A.-C. [address] [place] [phone] 07/17/2022 Appointment Laboratory Medicine Angélica Granger P.A.-C. [address] [place] [phone] 07/31/2022 Appointment Laboratory Medicine Angélica Granger P.A.-C. [address] [place] [phone] 08/14/2022 Appointment Laboratory Medicine Angélica Granger P.A.-C. [address] [place] [phone] 08/28/2022 Appointment Laboratory Medicine Angélica Granger P.A.-C. [address] [place] [phone] documented as of this encounter Visit Diagnoses Not on filedocumented in this encounter Additional Health Concerns Assessment Noted Time PHQ-9 Depression Total Score: 4 11/28/2020 10:17 AM CD T documented as of this encounter Care Teams Siding Coreboard Inspector Relationship Specialty Start Date End Date Elsewhere, Pcp PCP - General Family Medicine 07/29/17 [place] - Laboratory Medicine 04/12/[address] [address] documented as of this encounter
--- OUTSIDE RECORDS SUMMARY | 2022-05-17 18:25 | XMS_ITS | Encounter Summary ---
:1955 Author Organization [facility] Address [address] [place] [address] Care Team Providers Name Role Phone Elsewhere, Pcp Primary Care Provider Unavailable Encounter Details Date Type Department Care Team Description 11/23/2021 Orders Only Division of Nephrology and Elissa Wilcox A PRN, Hypertension, Scientologist C.N.P. 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 [address] [place] [phone] 05/23/2022 Clinical Admitting/Central Communication Scheduling 05/27/2022 Comprehensive Visit Orthopedic Surgery Markus Sams M.D., Ph.D. [address] [place] [phone] 05/29/2022 Office Visit Otorhinolaryngology Dex Matta APRN, C.N.P., M.S.N. [address] [place] [phone] 05/29/2022 Office Visit Otorhinolaryngology Nadeem Maradiaga, P.Murtaza.-Arley., M.S. [address] [place] [address] [phone] 05/31/2022 Appointment Radiology Guilherme Matt MPAS, Jennifer., M.S. [address] [place] [phone] 06/05/2022 Appointment Laboratory Medicine Angélica Granger P.A.-C. [address] [place] [phone] 06/19/2022 Appointment Laboratory Medicine Angélica Granger P.A.-C. [address] [place] [phone] 07/03/2022 Appointment Laboratory Medicine Angélica Granger P.A.-C. [address] [place] [phone] 07/17/2022 Appointment Laboratory Medicine Angélica Granger P.A.-C. [address] [place] [phone] 07/31/2022 Appointment Laboratory Medicine Angélica Granger P.A.-C. [address] [place] [phone] 08/14/2022 Appointment Laboratory Medicine Angélica Granger P.A.-C. [address] [place] [phone] 08/28/2022 Appointment Laboratory Medicine Angélica Granger P.A.-C. [address] [place] [phone] documented as of this encounter Visit Diagnoses Not on filedocumented in this encounter Additional Health Concerns Infection Onset Date Last Indicated Resolved Time COVID19 Pending 12/05/2021 12/05/2021 12/05/2021 6:33 PM CDT COVID19 Pending 12/07/2021 12/07/2021 12/07/2021 1:40 PM CDT Assessment Noted Time PHQ-9 Depression Total Score: 4 11/28/2020 10:17 AM CD T documented as of this encounter Care Teams Shipmaster Relationship Specialty Start Date End Date Elsewhere, Pcp PCP - General Family Medicine 07/29/17 [facility] - Laboratory Medicine 04/12/20 [place] [id number] documented as of this encounter
--- OUTSIDE RECORDS SUMMARY | 2022-05-17 18:25 | XMS_ITS | Encounter Summary ---
:1955 Author Organization [facility] Address [address] [place] [address] Care Team Providers Name Role Phone Elsewhere, Pcp Primary Care Provider Unavailable Reason for Visit Reason Comments Labs Only Encounter Details Date Type Department Care Team Description 11/16/2021 Clinical Communication Irena Gamez [facility] Labs Only Center for R, R.N. 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 *All labs are now found in [facility] - Lab - Flowsheets. For further review of labs, please review there or under Synopsis* documented in 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 [address] [place] [phone] 05/23/2022 Clinical Admitting/Central Communication Scheduling 05/27/2022 Comprehensive Visit Orthopedic Surgery Markus Sams M.D., Ph.D. [address] [place] [phone] 05/29/2022 Office Visit Otorhinolaryngology Dex Matta APRN, CDemetriusN.P., M.S.N. [address] [place] [phone] 05/29/2022 Office Visit Otorhinolaryngology Nadeem Maradiaga, Jennifer., M.S. [address] [place] [phone] 05/31/2022 Appointment Radiology Guilherme Matt, RASTA, Jennifer., M.S. [address] [place] [phone] 06/05/2022 Appointment Laboratory Medicine Angélica Granger P.A.-C. [address] [place] [phone] 06/19/2022 Appointment Laboratory Medicine Angélica Granger P.A.-C. [address] [place] [phone] 07/03/2022 Appointment Laboratory Medicine Angélica Granger P.A.-C. [address] [place] [phone] 07/17/2022 Appointment Laboratory Medicine Angélica Granger P.A.-C. [address] [place] [phone] 07/31/2022 Appointment Laboratory Medicine Angélica Granger P.A.-C. [address] [place] [phone] 08/14/2022 Appointment Laboratory Medicine Angélica Granger P.A.-C. [address] [place] [phone] 08/28/2022 Appointment Laboratory Medicine Angélica Granger P.A.-C. [address] [place] [phone] documented as of this encounter Visit Diagnoses Not on filedocumented in this encounter Additional Health Concerns Assessment Noted Time PHQ-9 Depression Total Score: 4 11/28/2020 10:17 AM CD T documented as of this encounter Care Teams Pipe Chipper Relationship Specialty Start Date End Date Elsewhere, Pcp PCP - General Family Medicine 07/29/17 [facility] - Laboratory Medicine 04/12/[address] [address] documented as of this encounter
--- OUTSIDE RECORDS SUMMARY | 2022-05-17 18:25 | XMS_ITS | Encounter Summary ---
:1955 Author Organization [facility] Address [address] [place] [address] Care Team Providers Name Role Phone Elsewhere, Pcp Primary Care Provider Unavailable Reason for Visit Reason Comments Labs Only Encounter Details Date Type Department Care Team Description 11/22/2021 Clinical Communication Irena Gamez [facility] Labs Only Center for R, R.N. 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 [address] [place] [phone] 05/23/2022 Clinical Admitting/Central Communication Scheduling 05/27/2022 Comprehensive Visit Orthopedic Surgery Markus Sams M.D., Ph.D. [address] [place] [phone] 05/29/2022 Office Visit Otorhinolaryngology Dex Matta APRN, C.N.P., M.S.N. [address] [place] [phone] 05/29/2022 Office Visit Otorhinolaryngology Nadeem Maradiaga P.A.-C., M.S. [address] [place] [phone] 05/31/2022 Appointment Radiology Guilherme Matt MPAS, P.A.-C., M.S. [address] [place] [phone] 06/05/2022 Appointment Laboratory Medicine Angélica Grnager P.A.-C. [address] [place] [phone] 06/19/2022 Appointment Laboratory Medicine Angélica Granger P.A.-C. [address] [place] [phone] 07/03/2022 Appointment Laboratory Medicine Angélica Granger P.A.-C. [address] [place] [phone] 07/17/2022 Appointment Laboratory Medicine Angélica Granger P.A.-C. [address] [place] [phone] 07/31/2022 Appointment Laboratory Medicine Angélica Granger P.A.-C. [address] [place] [phone] 08/14/2022 Appointment Laboratory Medicine Angélica Granger P.A.-C. [address] [place] [phone] 08/28/2022 Appointment Laboratory Medicine Angélica Granger P.A.-C. [address] [place] [phone] documented as of this encounter Visit Diagnoses Diagnosis Transplant Liver (HCC) - Primary Medication Therapy Hog Counter Not Anticoa gulant documented in this encounter Additional Health Concerns Assessment Noted Time PHQ-9 Depression Total Score: 4 11/28/2020 10:17 AM CD T documented as of this encounter Care Teams Trailer Mechanic Relationship Specialty Start Date End Date Elsewhere, Pcp PCP - General Family Medicine 07/29/17 [facility] - Laboratory Medicine 04/12/20 [place] [phone] documented as of this encounter
--- OUTSIDE RECORDS SUMMARY | 2022-05-17 18:25 | XMS_ITS | Encounter Summary ---
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 [address] [place] [phone] 05/23/2022 Clinical Admitting/Central Communication Scheduling 05/27/2022 Comprehensive Visit Orthopedic Surgery Markus Sams M.D., Ph.D. [address] [place] [phone] 05/29/2022 Office Visit Otorhinolaryngology Dex Matta APRN, C.N.P., M.S.N. [address] [place] [phone] 05/29/2022 Office Visit Otorhinolaryngology Nadeem Maradiaga, P.Murtaza.-C., M.S. [address] [place] [phone] 05/31/2022 Appointment Radiology Guilherme Matt MPAS, P.Murtaza.-Arley., M.S. [address] [place] [phone] 06/05/2022 Appointment Laboratory Medicine Angélica Granger P.A.-C. [address] [place] [phone] 06/19/2022 Appointment Laboratory Medicine Angélica Granger P.A.-C. [address] [place] [phone] 07/03/2022 Appointment Laboratory Medicine Angélica Granger P.A.-C. [address] [place] [phone] 07/17/2022 Appointment Laboratory Medicine Angélica Granger P.A.-C. [address] [place] [address] [phone] 07/31/2022 Appointment Laboratory Medicine Angélica Granger P.A.-C. [address] [place] [phone] 08/14/2022 Appointment Laboratory Medicine Angélica Granger P.A.-C. [address] [place] [phone] 08/28/2022 Appointment Laboratory Medicine Angélica Granger P.A.-C. [address] [place] [phone] documented as of this encounter Visit Diagnoses Not on filedocumented in this encounter Additional Health Concerns Infection Onset Date Last Indicated Resolved Time COVID19 Pending 12/05/2021 12/05/2021 12/05/2021 6:33 PM CDT COVID19 Pending 12/07/2021 12/07/2021 12/07/2021 1:40 PM CDT Assessment Noted Time PHQ-9 Depression Total Score: 4 11/28/2020 10:17 AM CD T documented as of this encounter Care Teams Pasteurizer Helper Relationship Specialty Start Date End Date Elsewhere, Pcp PCP - General Family Medicine 07/29/17 [facility] - Laboratory Medicine 04/12/20 [place] [phone] documented as of this encounter
--- OUTSIDE RECORDS SUMMARY | 2022-05-17 18:25 | XMS_ITS | Encounter Summary ---
:1955 Author Organization [facility] Address [address] [place] [address] Care Team Providers Name Role Phone Elsewhere, Pcp Primary Care Provider Unavailable Encounter Details Date Type Department Care Team Description 11/12/2021 Documentation Division of Nephrology and Suhail Norwood Hypertension in [place], ., D.O. 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 [address] [place] [phone] 05/23/2022 Clinical Admitting/Central Communication Scheduling 05/27/2022 Comprehensive Visit Orthopedic Surgery Markus Sams M.D., Ph.D. [address] [place] [phone] 05/29/2022 Office Visit Otorhinolaryngology Dex Matta APRN CDemetriusNFabrice., M.S.N. [address] [place] [phone] 05/29/2022 Office Visit Otorhinolaryngology Nadeem Maradiaga P.A.-C., M.S. [address] [place] [phone] 05/31/2022 Appointment Radiology Guilherme Matt MPAS, P.A.-C., M.S. [address] [place] [phone] 06/05/2022 Appointment Laboratory Medicine Angélica Granger P.A.-C. [address] [place] [phone] 06/19/2022 Appointment Laboratory Medicine Angélica Granger P.A.-C. [address] [place] [phone] 07/03/2022 Appointment Laboratory Medicine Angélica Granger P.A.-C. [address] [place] [phone] 07/17/2022 Appointment Laboratory Medicine Angélica Granger P.A.-C. [address] [place] [phone] 07/31/2022 Appointment Laboratory Medicine Angélica Granger P.A.-C. [address] [place] [phone] 08/14/2022 Appointment Laboratory Medicine Angélica Granger P.A.-C. [address] [place] [phone] 08/28/2022 Appointment Laboratory Medicine Angélica Granger P.A.-C. [address] [place] [phone] documented as of this encounter Visit Diagnoses Not on filedocumented in this encounter Additional Health Concerns Assessment Noted Time PHQ-9 Depression Total Score: 4 11/28/2020 10:17 AM CD T documented as of this encounter Care Teams Tire Service Technician Relationship Specialty Start Date End Date Elsewhere, Pcp PCP - General Family Medicine 07/29/17 [facility] - Laboratory Medicine 04/12/[address] [address] documented as of this encounter
--- OUTSIDE RECORDS SUMMARY | 2022-05-17 18:25 | XMS_ITS | Encounter Summary ---
:1955 Author Organization [facility] Address [address] [place] [address] Care Team Providers Name Role Phone Elsewhere, Pcp Primary Care Provider Unavailable Encounter Details Date Type Department Care Team Description 11/28/2021 Hospital Encounter Department of Trung Plasencia Liver (HCC); Laboratory Medicine Edmundo Stern, Medicati on Therapy Shelter Not Anticoagulant; in Jimmie Blake M.S. 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 Medication Therapy Steam Tender Not Anticoagulant NIFEdipine XL (PROCARDIA Take 60 [...] Laboratory Medicine Angélica Granger P.A.-C. [address] [place] [phone] 05/23/2022 Clinical Admitting/Central Communication Scheduling 05/27/2022 Comprehensive Visit Orthopedic Surgery Markus Sams M.D., Ph.D. [address] [place] [phone] 05/29/2022 Office Visit Otorhinolaryngology Dex Matta, RAMONA, C.N.P., M.S.N. [address] [place] [phone] 05/29/2022 Office Visit Otorhinolaryngology Nadeem Maradiaga, P.A.-C., M.S. [address] [place] [phone] 05/31/2022 Appointment Radiology Guilherme Matt MPAS, P.A.-C., M.S. [address] [place] [phone] 06/05/2022 Appointment Laboratory Medicine Angélica Granger P.A.-C. [address] [place] [phone] 06/19/2022 Appointment Laboratory Medicine Angélica Granger P.A.-C. [address] [place] [phone] 07/03/2022 Appointment Laboratory Medicine Angélica Granger P.A.-C. [address] [place] [phone] 07/17/2022 Appointment Laboratory Medicine Angélica Granger P.A.-C. [address] [place] [phone] 07/31/2022 Appointment Laboratory Medicine Angélica Granger P.A.-C. [address] [place] [phone] 08/14/2022 Appointment Laboratory Medicine Angélica Granger P.A.-C. [address] [place] [phone] 08/28/2022 Appointment Laboratory Medicine Angélica Granger P.A.-C. [address] [place] [phone] documented as of this encounter Procedures Procedure Name Priority Date/Time Associated Diagnosis Comme nts CMV DNA DETECT/QUANT, Routine 11/28/2021 8:19 Transplant Liver (HCC) Results for this P AM CDT Medication Therapy procedure are in Shelter Not the results Anticoagulant section. Colitis Cytomegalovirus (HCC) TACROLIMUS LEVEL, B Routine 11/28/2021 8:19 Transplant L iver (HCC) Results for this AM CDT Medication Therapy procedure are in Shelter Not the results Anticoagulant section. Colitis Cytomegalovirus (HCC) CBC WITHOUT Routine 11/28/2021 8:19 Transplant Liver (HCC) Results for this DIFFERENTIAL, B AM CDT Medication Therapy proced ure are in Shelter Not the results Anticoagulant section. Colitis Cytomegalovirus (HCC) GLUCOSE, FASTING, S/P Routine 11/28/2021 8:19 Transplant Liver (HCC) Results for this AM CDT Medication Therapy procedure are in Steam Tender Not the results Anticoagulant section. Colitis Cytomegalovirus (HCC) COMPREHENSIVE Routine 11/28/2021 8:19 Transplant Liver (HCC) Results for this METABOLIC PANEL, S/P AM CDT Medication Therapy p rocedure are in Steam Tender Not the results Anticoagulant section. Colitis Cytomegalovirus (HCC) documented in this encounter Results (ABNORMAL) Tacrolimus, B (11/28/2021 8:19 AM CDT) P athologist Signature Tacrolimus, B 2.0 (L) 5.0-15.0 11/29/2021 SDSC (Trough) 10:36 AM CDT ng/mL Comment: ----ADDITIONAL [...] [facility] in a manner consistent with CLIA [...] City/State/ZIP Code Phon e Number [facility] [address] [place] [address] [facility] [place] [address] Laboratory Medicine and Pathology [address] [place] CMV DNA Detect / Quant, Plasma (11/28/2021 8:19 AM CDT) Patholo gist Method Time Signature CMV DNA Undetected Undetected 11/29/2021 SDS Detect/Quant, IU/mL 11:56 AM P CDT Comment: Result in log IU/mL is Undetected. ----ADDITIONAL INFORMATION---- The quantification range of this assay i s 35 to 10,000,000 IU/mL (1.54 log to 7.00 log IU/mL). Testing was performed u sing the tika CMV test ([employer] with the tika [id number] System. Specimen Anatomical Collection Method Collection Time Receive d Time (Source) Location / / Volume Laterality Blood (Blood, 11/28/2021 8:19 AM 11/30/19 7:10 Venous) CDT AM CDT Trung Plasencia P.A.-C., M.S. LAB MICROBIOLOGY - BLOOD O RDERABLES Performing Organization Address City/[facility]/ZIP [facility] Number [facility] [address] [place], [place] [address] [place] [address] CENTER [facility] [place] [address] Laboratory Medicine and Pathology [address] [place] (ABNORMAL) Glucose, Fasting (11/28/2021 8:19 [...] LAB BLOOD NON ADD-ON Performing Organization Address City/[facility] Phon e Number [address] [address] [place] [address] System [address] (ABNORMAL) Comprehensive Metabolic Panel (11/28/2021 8:19 [...] eGFR-Black/Afri 20 (L) >=60 11/28/2021 CNFL can [place] mL/min/BSA 8:51 AM CDT Comment: ----ADDITIONAL INFORMATION---- Estimated GFR calculated using the 2009 CKD_EPI creatinine equation. eGFR Non-Black/ 17 (L) >=60 mL/min/BSA 11/28/2021 8:51 AM CDT CNFL [place] Comment: ----ADDITIONAL INFORMATION---- Estimated GFR [...] M.S. LAB BLOOD ADD-ON Performing Organization Address [facility] Phon e Number [address] [address] [place] [address] System in [address] (ABNORMAL) CBC without Differential (11/28/2021 8:19 AM CDT) [facility] gist Method Time Signature Hemoglobin 9.5 [...] M.S. LAB BLOOD ADD-ON Performing Organization Address City/[facility] Phon e Number [address] [address] [place] [address] System in [place] [address] documented in this encounter Visit Diagnoses Diagnosis Transplant Liver (HCC) Medication Therapy Shelter Not Anticoa gulant Colitis Cytomegalovirus (HCC) documented in this encounter Additional Health Concerns Assessment Noted Time PHQ-9 Depression Total Score: 4 11/28/2020 10:17 AM CD T documented as of this encounter Care Teams Adoption Coordinator Relationship Specialty Start Date End Date Elsewhere, Pcp PCP - General Family Medicine 07/29/17 [facility] - Laboratory Medicine 04/12/20 [place] [phone] documented as of this encounter
--- OUTSIDE RECORDS SUMMARY | 2022-05-17 18:25 | XMS_ITS | Encounter Summary ---
:1955 Author Organization [facility] Address [address] [place] [address] Care Team Providers Name Role Phone Elsewhere, Pcp Primary Care Provider Unavailable Reason for Visit Reason Comments Med Management Encounter Details Date Type Department Care Team Description 11/26/2021 Clinical Communication Irena Gamez [facility], R.N. 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 [address] [place] [phone] 05/23/2022 Clinical Admitting/Central Communication Scheduling 05/27/2022 Comprehensive Visit Orthopedic Surgery Markus Sams M.D., Ph.D. [address] [place] [phone] 05/29/2022 Office Visit Otorhinolaryngology Dex Matta APRN, C.N.P., M.S.N. [address] [place] [phone] 05/29/2022 Office Visit Otorhinolaryngology Nadeem Maradiaga, P.A.-Arley., M.S. [address] [place] [phone] 05/31/2022 Appointment Radiology Guilherme Matt, RASTA, P.Tom., M.S. [address] [place] [phone] 06/05/2022 Appointment Laboratory Medicine Angélica Granger P.A.-C. [address] [place] [phone] 06/19/2022 Appointment Laboratory Medicine Angélica Granger P.A.-C. [address] [place] [phone] 07/03/2022 Appointment Laboratory Medicine GunAngélica wilcox P.A.-C. [address] [place] [phone] 07/17/2022 Appointment Laboratory Medicine Angélica Granger P.A.-C. [address] [place] [phone] 07/31/2022 Appointment Laboratory Medicine Angélica Granger P.A.-C. [address] [place] [phone] 08/14/2022 Appointment Laboratory Medicine Angélica Granger P.A.-C. [address] [place] [phone] 08/28/2022 Appointment Laboratory Medicine Angélica Granger P.A.-C. [address] [place] [phone] documented as of this encounter Visit Diagnoses Not on filedocumented in this encounter Additional Health Concerns Assessment Noted Time PHQ-9 Depression Total Score: 4 11/28/2020 10:17 AM CD T documented as of this encounter Care Teams Cooperative Manager Relationship Specialty Start Date End Date Elsewhere, Pcp PCP - General Family Medicine 07/29/17 [facility] - Laboratory Medicine 04/12/[address] [address] documented as of this encounter
--- OUTSIDE RECORDS SUMMARY | 2022-05-17 18:25 | XMS_ITS | Encounter Summary ---
:[address] [facility] Address [address] [place] [address] Care Team Providers Name Role Phone Elsewhere, Pcp Primary Care Provider Unavailable Reason for Visit Reason Comments Med Refill Encounter Details Date Type Department Care Team Description 11/26/2021 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 [address] [place] [phone] 05/23/2022 Clinical Admitting/Central Communication Scheduling 05/27/2022 Comprehensive Visit Orthopedic Surgery Markus Sams M.D., Ph.D. [address] [place] [phone] 05/29/2022 Office Visit Otorhinolaryngology Dex Matta APRN, C.N.P., M.S.N. [address] [place] [phone] 05/29/2022 Office Visit Otorhinolaryngology Nadeem Maradiaga, P.A.-Arley., M.S. [address] [place] [address] [phone] 05/31/2022 Appointment Radiology Guilherme Matt MPAS, PMaryanne., M.S. [address] [place] [address] [phone] 06/05/2022 Appointment Laboratory Medicine Angélica Granger P.A.-C. [address] [place] [phone] 06/19/2022 Appointment Laboratory Medicine Angélica Granger P.A.-C. [address] [place] [phone] 07/03/2022 Appointment Laboratory Medicine Angélica Granger P.A.-C. [address] [place] [phone] 07/17/2022 Appointment Laboratory Medicine Angélica Granger P.A.-C. [address] [place] [phone] 07/31/2022 Appointment Laboratory Medicine Angélica Granger P.A.-C. [address] [place] [phone] 08/14/2022 Appointment Laboratory Medicine Angélica Granger P.A.-C. [address] [place] [phone] 08/28/2022 Appointment Laboratory Medicine Angélica Granger P.A.-C. [address] [place] [phone] documented as of this encounter Visit Diagnoses Diagnosis Transplant Liver (HCC) documented in this encounter Additional Health Concerns Assessment Noted Time PHQ-9 Depression Total Score: 4 11/28/2020 10:17 AM CD T documented as of this encounter Care Teams Brick Offbearer Relationship Specialty Start Date End Date Elsewhere, Pcp PCP - General Family Medicine 07/29/17 [facility] - Laboratory Medicine 04/12/[address] [address] documented as of this encounter
--- OUTSIDE RECORDS SUMMARY | 2022-05-17 18:25 | XMS_ITS | Encounter Summary ---
:1955 Author Organization [facility] Address [address] [place] [address] Care Team Providers Name Role Phone Elsewhere, Pcp Primary Care Provider Unavailable Encounter Details Date Type Department Care Team Description 11/14/2021 Hospital Encounter Department of Trung Plasencia Liver (HCC); Laboratory Medicine Edmundo Stern, Medicati on Therapy Snf Not Anticoagulant; in Jimmie Blake M.S. 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 Medication Therapy Senior Clinical Data Analyst Not Anticoagulant NIFEdipine XL (PROCARDIA Take 1 tablet (30 270 tablet 3 09/2211/23/2021 XL) 30 mg 24 hr mg total) by mouth tabletIndications: daily. Hypertension And Chronic Kidney Disease Stage 4 (HCC) NIFEdipine XL (PROCARDIA Take 60 mg by [...] Laboratory Medicine Angélica Granger, P.A.-C. [address] [place] [phone] 05/23/2022 Clinical Admitting/Central Communication Scheduling 05/27/2022 Comprehensive Visit Orthopedic Surgery Markus Sams M.D., Ph.D. [address] [place] [phone] 05/29/2022 Office Visit Otorhinolaryngology Dex Matta APRN, C.N.P., M.S.N. [address] [place] [phone] 05/29/2022 Office Visit Otorhinolaryngology Nadeem Maradiaga, P.A.-C., M.S. [address] [place] [phone] 05/31/2022 Appointment Radiology UrbanGuilherme MPAS, P.A.-C., M.S. [address] [place] [phone] 06/05/2022 Appointment Laboratory Medicine Angélica Granger P.A.-C. [address] [place] [phone] 06/19/2022 Appointment Laboratory Medicine Angélica Granger P.A.-C. [address] [place] [phone] 07/03/2022 Appointment Laboratory Medicine Angélica Granger P.A.-C. [address] [place] [phone] 07/17/2022 Appointment Laboratory Medicine Angélica Granger P.A.-C. [address] [place] [phone] 07/31/2022 Appointment Laboratory Medicine Angélica Granger P.A.-C. [address] [place] [phone] 08/14/2022 Appointment Laboratory Medicine Angélica Granger P.A.-C. [address] [place] [phone] 08/28/2022 Appointment Laboratory Medicine Angélica Granger P.A.-C. [address] [place] [address] [phone] documented as of this encounter Procedures Procedure Name Priority Date/Time Associated Diagnosis Comme nts CMV DNA DETECT/QUANT, Routine 11/14/2021 7:32 Transplant Liver (HCC) Results for this P AM CDT Medication Therapy procedure are in Snf Not the results Anticoagulant section. Colitis Cytomegalovirus (HCC) TACROLIMUS LEVEL, B Routine 11/14/2021 7:32 Transplant L iver (HCC) Results for this AM CDT Medication Therapy procedure are in Snf Not the results Anticoagulant section. Colitis Cytomegalovirus (HCC) CBC WITHOUT Routine 11/14/2021 7:32 Transplant Liver (HCC) Results for this DIFFERENTIAL, B AM CDT Medication Therapy proced ure are in Snf Not the results Anticoagulant section. Colitis Cytomegalovirus (HCC) GLUCOSE, FASTING, S/P Routine 11/14/2021 7:32 Transplant Liver (HCC) Results for this AM CDT Medication Therapy procedure are in Snf Not the results Anticoagulant section. Colitis Cytomegalovirus (HCC) COMPREHENSIVE Routine 11/14/2021 7:32 Transplant Liver (HCC) Results for this METABOLIC PANEL, S/P AM CDT Medication Therapy p rocedure are in Snf Not the results Anticoagulant section. Colitis Cytomegalovirus (HCC) documented in this encounter Results (ABNORMAL) Tacrolimus, B (11/14/2021 7:32 AM CDT) athologist Signature Tacrolimus, B <1.0 (L) 5.0-15.0 11/15/2021 [facility] (Trough) 10:11 AM CDT ng/mL Comment: ----ADDITIONAL [...] performa nce characteristics determined by [facility] in a manner consistent with CLIA requirements. [...] Address City/State/ZIP Code Phon e Number [facility] [address] [place], [place] [address] [address] [facility] [place] [address] Laboratory Medicine and Pathology [facility] [place] (ABNORMAL) CMV DNA Detect / Quant, Plasma (11/14/2021 7:32 AM CDT) Patholo gist Method Time Signature CMV DNA <35 (A) Undetected 11/15/2021 [facility] Detect/Quant, IU/mL 5:52 PM CDT P Comment: [...] performed u sing the tika CMV test ([employer] with the tika 6800 System. Specimen Anatomical Collection Method Collection Time Receive d Time (Source) Location / / Volume Laterality Blood (Blood, 11/14/2021 7:32 AM 11/16/19 7:39 Venous) CDT AM CDT Trung Plasencia P.A.-C., M.S. LAB MICROBIOLOGY - BLOOD O RDERABLES Performing Organization Address City/[facility]/ZIP Code Phon e Number [facility] [address] [place], [place] [address] [place] [address] Laboratory Medicine and Pathology [address] [place] [address] Dr. [place] (ABNORMAL) Glucose, Fasting (11/14/2021 7:32 [...] City/State/ZIP Code Phon e Number [facility]- [address] [place] [address] [place] [address] System [address] (ABNORMAL) Comprehensive Metabolic Panel (11/14/2021 7:32 [...] eGFR-Black/Afri 20 (L) >=60 11/14/2021 CNFL can Tanz[place] mL/min/BSA 8:20 AM CDT Comment: ----ADDITIONAL INFORMATION---- Estimated GFR calculated using the 2009 CKD_EPI creatinine equation. eGFR Non-Black/ 17 (L) >=60 mL/min/BSA 11/14/2021 8:20 AM CDT CNFL Tanz[place] Comment: ----ADDITIONAL INFORMATION---- Estimated GFR calculated [...] Address City/State/ZIP Code Phon e Number [address] [address] [place] [address] System [address] (ABNORMAL) CBC without Differential (11/14/2021 7:32 AM CDT) [facility] Method Time Signature Hemoglobin 10.0 (L) [...] City/State/ZIP Code Phon e Number [facility]- [address] [place] [address] [place] [address] [place] [place] [address] System [address] documented in this encounter Visit Diagnoses Diagnosis Transplant Liver (HCC) Medication Therapy Senior Clinical Data Analyst Not Anticoa gulant Colitis Cytomegalovirus (HCC) documented in this encounter Additional Health Concerns Assessment Noted Time PHQ-9 Depression Total Score: 4 11/28/2020 10:17 AM CD T documented as of this encounter Care Teams Iron Handler Relationship Specialty Start Date End Date Elsewhere, Pcp PCP - General Family Medicine 07/29/17 [facility] - Laboratory Medicine 04/12/[address] [address] documented as of this encounter
--- OUTSIDE RECORDS SUMMARY | 2022-05-17 18:25 | XMS_ITS | Encounter Summary ---
:1955 Author Organization [facility] Address [address] [place] [address] Care Team Providers Name Role Phone Elsewhere, Pcp Primary Care Provider Unavailable Encounter Details Date Type Department Care Team Description 11/21/2021 Hospital Encounter Department of Trung Plasencia Liver (HCC); Laboratory Medicine Edmundo Stern, Medicati on Therapy Group Home Not Anticoagulant; in Jimmie Blake M.S. 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 Transplant Liver ([facility]) lidocaine-prilocaine Apply 1 application 30 g 11 202102/07/2022 ([facility]) 2.5-2.5 % cream topically See Admin Instructions. 2 hours prior to dialysis. mycophenolate (CELLCEPT) Take 2 capsules 360 capsule 3 10/1902/15/2022 250 mg (500 mg total) by capsuleIndications: mouth 2 (two) times Transplant Liver (HCC), a day. Do not Infection break, cut, or open Cytomegalovirus (HCC), capsules. Medication Therapy Rv Mechanic Not Anticoagulant NIFEdipine XL (PROCARDIA Take 1 [...] Appointment Laboratory Medicine Angélica Granger, P.A.-C. [address] [place] [phone] 05/23/2022 Clinical Admitting/Central Communication Scheduling 05/27/2022 Comprehensive Visit Orthopedic Surgery Markus Sams M.D., Ph.D. [address] [place] [phone] 05/29/2022 Office Visit Otorhinolaryngology Dex Matta APRN, C.N.P., M.S.N. [address] [place] [phone] 05/29/2022 Office Visit Otorhinolaryngology Nadeem Maradiaga, P.A.-C., M.S. [address] [place] [phone] 05/31/2022 Appointment Radiology UrbanGuilherme MPAS, P.A.-C., M.S. [address] [place] [phone] 06/05/2022 Appointment Laboratory Medicine Angélica Granger P.A.-C. [address] [place] [phone] 06/19/2022 Appointment Laboratory Medicine Angélica Granger P.A.-C. [address] [place] [phone] 07/03/2022 Appointment Laboratory Medicine Angélica Granger P.A.-C. [address] [place] [phone] 07/17/2022 Appointment Laboratory Medicine Angélica Granger P.A.-C. [address] [place] [phone] 07/31/2022 Appointment Laboratory Medicine Angélica Granger P.A.-C. [address] [place] [phone] 08/14/2022 Appointment Laboratory Medicine Angélica Granger P.A.-C. [address] [place] [phone] 08/28/2022 Appointment Laboratory Medicine Angélica Granger P.A.-C. [address] [place] [address] [phone] documented as of this encounter Procedures Procedure Name Priority Date/Time Associated Diagnosis Comme nts CMV DNA DETECT/QUANT, Routine 11/21/2021 8:02 Transplant Liver (HCC) Results for this P AM CDT Medication Therapy procedure are in Group Home Not the results Anticoagulant section. Colitis Cytomegalovirus (HCC) TACROLIMUS LEVEL, B Routine 11/21/2021 8:02 Transplant L iver (HCC) Results for this AM CDT Medication Therapy procedure are in Group Home Not the results Anticoagulant section. Colitis Cytomegalovirus (HCC) CBC WITHOUT Routine 11/21/2021 8:02 Transplant Liver (HCC) Results for this DIFFERENTIAL, B AM CDT Medication Therapy proced ure are in Group Home Not the results Anticoagulant section. Colitis Cytomegalovirus (HCC) GLUCOSE, FASTING, S/P Routine 11/21/2021 8:02 Transplant Liver (HCC) Results for this AM CDT Medication Therapy procedure are in Group Home Not the results Anticoagulant section. Colitis Cytomegalovirus (HCC) COMPREHENSIVE Routine 11/21/2021 8:02 Transplant Liver (HCC) Results for this METABOLIC PANEL, S/P AM CDT Medication Therapy p rocedure are in Group Home Not the results Anticoagulant section. Colitis Cytomegalovirus (HCC) documented in this encounter Results (ABNORMAL) Tacrolimus, B (11/21/2021 8:02 AM CDT) athologist Signature Tacrolimus, B <1.0 (L) 5.0-15.0 11/22/2021 [facility] (Trough) 11:07 AM CDT ng/mL Comment: ----ADDITIONAL [...] Laterality Blood (Blood, 11/21/2021 8:02 AM 11/23/19 7:08 Venous) CDT AM CDT Trung Plasencia P.A.-C., M.S. LAB BLOOD NON ADD-ON Performing Organization Address City/State/ZIP Code Phon e Number [facility] [address] [place] [address] [place] [address] Laboratory Medicine and Pathology [facility] [place] (ABNORMAL) CMV DNA Detect / Quant, Plasma (11/21/2021 8:02 AM CDT) Patholo gist Method Time Signature CMV DNA <35 (A) Undetected 11/22/2021 [facility] Detect/Quant, IU/mL 2:12 PM CDT P Comment: [...] performed u sing the tika CMV test ([employer] with the tika 6800 System. Specimen Anatomical Collection Method Collection Time Receive d Time (Source) Location / / Volume Laterality Blood (Blood, 11/21/2021 8:02 AM 11/23/19 22 7:13 Venous) CDT AM CDT Trung Plasencia P.A.-C., M.S. LAB MICROBIOLOGY - BLOOD O RDERABLES Performing Organization Address City/[facility]/ZIP Code Phon e Number [facility] [address] [place], [place] [address] [place] [address] Laboratory Medicine and Pathology [address] [place] [address] Dr. [place] (ABNORMAL) Glucose, Fasting (11/21/2021 8:02 [...] Address City/State/ZIP Code Phon e Number [facility]- [address] [place] [address] [place] [address] System [address] (ABNORMAL) Comprehensive Metabolic Panel (11/21/2021 8:02 [...] eGFR-Black/Afri 22 (L) >=60 11/21/2021 CNFL can Kitt[place] mL/min/BSA 8:50 AM CDT Comment: ----ADDITIONAL INFORMATION---- Estimated GFR calculated using the 2009 CKD_EPI creatinine equation. eGFR Non-Black/ 19 (L) >=60 mL/min/BSA 11/21/2021 8:50 AM CDT CNFL Kitt[place] Comment: ----ADDITIONAL INFORMATION---- Estimated GFR calculated using [...] Organization Address City/State/ZIP Code Phon e Number [address] [address] [place] [address] System in [address] (ABNORMAL) CBC without Differential (11/21/2021 8:02 AM CDT) [facility] Method Time Signature Hemoglobin 9.9 (L) 13.2 [...] Address City/State/ZIP Code Phon e Number [facility]- [address] [place] [address] [place] [address] [place] [address] [address] documented in this encounter Visit Diagnoses Diagnosis Transplant Liver (HCC) Medication Therapy Group Home Not Anticoa gulant Colitis Cytomegalovirus (HCC) documented in this encounter Additional Health Concerns Assessment Noted Time PHQ-9 Depression Total Score: 4 11/28/2020 10:17 AM CD T documented as of this encounter Care Teams Director Of Employee Development Relationship Specialty Start Date End Date Elsewhere, Pcp PCP - General Family Medicine 07/29/17 [facility] - Laboratory Medicine 04/12/[address] [address] documented as of this encounter
--- OUTSIDE RECORDS SUMMARY | 2022-05-17 18:25 | XMS_ITS | Encounter Summary ---
:1955 Author Organization [facility] Address [address] [place] [address] Care Team Providers Name Role Phone Elsewhere, Pcp Primary Care Provider Unavailable Encounter Details Date Type Department Care Team Description 11/26/2021 Orders Only Division of Nephrology and Elissa Wilcox A PRN, Hypertension, Baptism [facility] 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 [address] [place] [phone] 05/23/2022 Clinical Admitting/Central Communication Scheduling 05/27/2022 Comprehensive Visit Orthopedic Surgery Markus Sams M.D., Ph.D. [address] [place] [phone] 05/29/2022 Office Visit Otorhinolaryngology Dex Matta APRN, C.N.P., M.S.N. [address] [place] [phone] 05/29/2022 Office Visit Otorhinolaryngology Nadeem Maradiaga, P.Murtaza.-Arley., M.S. [address] [place] [address] [phone] 05/31/2022 Appointment Radiology Guilherme Matt MPAS, Jennifer., M.S. [address] [place] [phone] 06/05/2022 Appointment Laboratory Medicine Angélica Granger P.A.-C. [address] [place] [phone] 06/19/2022 Appointment Laboratory Medicine Angélica Granger P.A.-C. [address] [place] [phone] 07/03/2022 Appointment Laboratory Medicine Angélica Granger P.A.-C. [address] [place] [phone] 07/17/2022 Appointment Laboratory Medicine Angélica Granger P.A.-C. [address] [place] [phone] 07/31/2022 Appointment Laboratory Medicine Angélica Granger P.A.-C. [address] [place] [phone] 08/14/2022 Appointment Laboratory Medicine Angélica Granger P.A.-C. [address] [place] [phone] 08/28/2022 Appointment Laboratory Medicine Angélica Granger P.A.-C. [address] [place] [phone] documented as of this encounter Visit Diagnoses Not on filedocumented in this encounter Additional Health Concerns Infection Onset Date Last Indicated Resolved Time COVID19 Pending 12/05/2021 12/05/2021 12/05/2021 6:33 PM CDT COVID19 Pending 12/07/2021 12/07/2021 12/07/2021 1:40 PM CDT Assessment Noted Time PHQ-9 Depression Total Score: 4 11/28/2020 10:17 AM CD T documented as of this encounter Care Teams Cloud Solutions Architect Relationship Specialty Start Date End Date Elsewhere, Pcp PCP - General Family Medicine 07/29/17 [facility] - Laboratory Medicine 04/12/20 [place] [address] documented as of this encounter
--- OUTSIDE RECORDS SUMMARY | 2022-05-17 18:25 | XMS_ITS | Encounter Summary ---
:1955 Author Organization [facility] Address [address] [place] [address] Care Team Providers Name Role Phone Elsewhere, Pcp Primary Care Provider Unavailable Encounter Details Date Type Department Care Team Description 11/12/2021 Orders Only Division of Nephrology and Chris Norwood Hypertension in [place], ., D.O. 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 [address] [place] [phone] 05/23/2022 Clinical Admitting/Central Communication Scheduling 05/27/2022 Comprehensive Visit Orthopedic Surgery Markus Sams M.D., Ph.D. [address] [place] [phone] 05/29/2022 Office Visit Otorhinolaryngology Dex Matta, RAMONA, C.N.P., M.S.N. [address] [place] [phone] 05/29/2022 Office Visit Otorhinolaryngology Nadeem Maradiaga, P.Murtaza.-Arley., M.S. [address] [place] [address] [phone] 05/31/2022 Appointment Radiology Guilherme Matt MPAS, Jennifer., M.S. [address] [place] [phone] 06/05/2022 Appointment Laboratory Medicine Angélica Granger P.A.-C. [address] [place] [phone] 06/19/2022 Appointment Laboratory Medicine Angélica Granger P.A.-C. [address] [place] [phone] 07/03/2022 Appointment Laboratory Medicine Angélica Granger P.A.-C. [address] [place] [phone] 07/17/2022 Appointment Laboratory Medicine Angélica Granger P.A.-C. [address] [place] [phone] 07/31/2022 Appointment Laboratory Medicine Angélica Granger P.A.-C. [address] [place] [phone] 08/14/2022 Appointment Laboratory Medicine Angélica Granger P.A.-C. [address] [place] [phone] 08/28/2022 Appointment Laboratory Medicine Angélica Granger P.A.-C. [address] [place] [phone] documented as of this encounter Visit Diagnoses Not on filedocumented in this encounter Additional Health Concerns Assessment Noted Time PHQ-9 Depression Total Score: 4 11/28/2020 10:17 AM CD T documented as of this encounter Care Teams Wood Carving Machine Operator Relationship Specialty Start Date End Date Elsewhere, Pcp PCP - General Family Medicine 07/29/17 [facility] - Laboratory Medicine 04/12/[address] [address] documented as of this encounter
--- OUTSIDE RECORDS SUMMARY | 2022-05-17 18:25 | XMS_ITS | Encounter Summary ---
:1955 Author Organization [facility] Address [address] [place] [address] Care Team Providers Name Role Phone Elsewhere, Pcp Primary Care Provider Unavailable Reason for Visit Reason Comments Txp Tacrolimus Adjustment Protocol - Liver Encounter Details Date Type Department Care Team Description 11/30/2021 Clinical Curt Moss, [facility] Communication Center for Yolie R, Adjustment Transplantation and R.N. 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 [address] [place] [address] 05/23/2022 Clinical Admitting/Central Communication Scheduling 05/27/2022 Comprehensive Visit Orthopedic Surgery Markus Sams M.D., Ph.D. [address] [place] [phone] 05/29/2022 Office Visit Otorhinolaryngology Dex Matta APRN, C.NJuan Miguel, M.S.N. [address] [place] [phone] 05/29/2022 Office Visit Otorhinolaryngology Nadeem Maradiaga, Jennifer., M.S. [address] [place] [phone] 05/31/2022 Appointment Radiology Guilherme Matt MPAS, Edmundo, M.S. [address] [place] [phone] 06/05/2022 Appointment Laboratory Medicine Angélica Granger P.A.-C. [address] [place] [phone] 06/19/2022 Appointment Laboratory Medicine Angélica Granger P.A.-C. [address] [place] [phone] 07/03/2022 Appointment Laboratory Medicine Angélica Granger P.A.-C. [address] [place] [phone] 07/17/2022 Appointment Laboratory Medicine Angélica Granger P.A.-C. [address] [place] [phone] 07/31/2022 Appointment Laboratory Medicine Angélica Granger P.A.-C. [address] [place] [address] 08/14/2022 Appointment Laboratory Medicine Angélica Granger P.A.-C. [address] [place] [phone] 08/28/2022 Appointment Laboratory Medicine Angélica Granger P.A.-C. [address] [place] [phone] documented as of this encounter Visit Diagnoses Not on filedocumented in this encounter Additional Health Concerns Assessment Noted Time PHQ-9 Depression Total Score: 4 11/28/2020 10:17 AM CD T documented as of this encounter Care Teams Registered Nurse Renal Relationship Specialty Start Date End Date Elsewhere, Pcp PCP - General Family Medicine 07/29/17 [facility] - Laboratory Medicine 04/12/[address] [address] documented as of this encounter
--- OUTSIDE RECORDS SUMMARY | 2022-05-17 18:26 | XMS_ITS | Encounter Summary ---
:1955 Author Organization [facility] Address [address] [place] [address] Care Team Providers Name Role Phone Elsewhere, Pcp Primary Care Provider Unavailable Encounter Details Date Type Department Care Team Description 10/24/2021 Hospital Encounter Department of Trung Plasencia Liver (HCC); Laboratory Medicine Edmundo Stern, Medicati on Therapy Ecological Risk Assessor Not Anticoagulant; in Jimmie Blake M.S. 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 Transplant Liver ([facility]) lidocaine-prilocaine Apply 1 application 30 g 11 202102/07/2022 (EMLA) 2.5-2.5 % cream topically See Admin Instructions. 2 hours prior to dialysis. mycophenolate (CELLCEPT) Take 2 capsules 360 capsule 3 10/1902/15/2022 250 mg (500 mg total) by capsuleIndications: mouth 2 (two) times Transplant Liver ([facility]), a day. Do not Infection break, cut, or open Cytomegalovirus ([facility]), capsules. Medication Therapy Ecological Risk Assessor Not Anticoagulant NIFEdipine XL (PROCARDIA Take 1 tablet (30 270 tablet 3 09/2211/23/2021 XL) 30 mg 24 hr mg total) by mouth tabletIndications: daily. Hypertension And Chronic Kidney Disease Stage 4 ([facility]) NIFEdipine XL (PROCARDIA Take 60 mg by [...] Description 05/22/2022 Appointment Laboratory Medicine Angélica Granger P.ADurgaCDemetrius [address] [place] [phone] 05/23/2022 Clinical Admitting/Central Communication Scheduling 05/27/2022 Comprehensive Visit Orthopedic Surgery Markus Sams M.D., Ph.D. [address] [place] [phone] 05/29/2022 Office Visit Otorhinolaryngology Dex Matta APRN, C.N.P., M.S.N. [address] [place] [phone] 05/29/2022 Office Visit Otorhinolaryngology Nadeem Maradiaga P.A.-C., M.S. [address] [place] [address] [phone] 05/31/2022 Appointment Radiology Guilherme Matt MPAS, P.A.-C., M.S. [address] [place] [phone] 06/05/2022 Appointment Laboratory Medicine Angélica Granger P.A.-C. [address] [place] [phone] 06/19/2022 Appointment Laboratory Medicine Angélica Granger P.A.-C. [address] [place] [phone] 07/03/2022 Appointment Laboratory Medicine Angélica Granger P.A.-C. [address] [place] [phone] 07/17/2022 Appointment Laboratory Medicine Angélica Granger P.A.-C. [address] [place] [phone] 07/31/2022 Appointment Laboratory Medicine Angélica Granger P.A.-C. [address] [place] [phone] 08/14/2022 Appointment Laboratory Medicine Angélica Granger P.A.-C. [address] [place] [phone] 08/28/2022 Appointment Laboratory Medicine Angélica Granger P.A.-C. [address] [place] [phone] documented as of this encounter Procedures Procedure Name Priority Date/Time Associated Diagnosis Comme nts CMV DNA DETECT/QUANT, Routine 10/24/2021 9:00 Transplant Liver (HCC) Results for this P AM CDT Medication Therapy procedure are in Ecological Risk Assessor Not the results Anticoagulant section. Colitis Cytomegalovirus (HCC) TACROLIMUS LEVEL, B Routine 10/24/2021 9:00 Transplant L iver (HCC) Results for this AM CDT Medication Therapy procedure are in Alf Not the results Anticoagulant section. Colitis Cytomegalovirus (HCC) CBC WITHOUT Routine 10/24/2021 9:00 Transplant Liver (HCC) Results for this DIFFERENTIAL, B AM CDT Medication Therapy proced ure are in Alf Not the results Anticoagulant section. Colitis Cytomegalovirus (HCC) COMPREHENSIVE Routine 10/24/2021 9:00 Transplant Liver (HCC) Results for this METABOLIC PANEL, S/P AM CDT Medication Therapy p rocedure are in Alf Not the results Anticoagulant section. Colitis Cytomegalovirus (HCC) GLUCOSE, FASTING, S/P Routine 10/24/2021 8:57 Transplant Liver (HCC) Results for this AM CDT Medication Therapy procedure are in Alf Not the results Anticoagulant section. Colitis Cytomegalovirus (HCC) documented in this encounter Results (ABNORMAL) Tacrolimus, B (10/24/2021 9:00 AM CDT) athologist Signature Tacrolimus, B <1.0 [...] performa nce characteristics determined by [facility] in a manner consistent with CLIA requirements. This test has not been cleared or approved by the U.S. Mer d and Drug Administration. Specimen Anatomical Collection Method Collection Time Receive d Time (Source) Location / / Volume Laterality Blood (Blood, 10/24/2021 9:00 AM 10/26/19 22 7:15 Venous) CDT AM CDT Trung Plasencia P.A.-C., MDemetriusS. LAB BLOOD NON ADD-ON Performing Organization Address [facility] Phon e Number [address] MURILLO [place] [address] [address] [facility] [place] [address] Laboratory Medicine and Pathology [address] [place] [address] Dr. MURILLO (ABNORMAL) CMV DNA Detect / Quant, Plasma (10/24/2021 9:00 AM CDT) [facility] gist Method Time Signature CMV DNA 146 (A) Undetected 10/25/2021 [facility] Detect/Quant, IU/mL 5:16 PM CDT P Comment: Result in log IU/mL is 2.16. ----ADDITIONAL INFORMATION---- The quantification range of this assay i s 35 to 10,000,000 IU/mL (1.54 log to 7.00 log IU/mL). Testing was performed u sing the tika CMV test ([employer] with the tika Vibes0 System. Specimen Anatomical Collection Method Collection Time Receive d Time (Source) Location / / Volume Laterality Blood (Blood, 10/24/2021 9:00 AM 10/26/19 22 7:23 Venous) CDT AM CDT Trung Plasencia P.A.-C., M.S. LAB MICROBIOLOGY - BLOOD O RDERABLES Performing Organization Address [facility] Phon e Number [address] [place] [address] [address] [facility] [place] [address] Laboratory Medicine and Pathology [address] [place] [address] Dr. MURILLO (ABNORMAL) Comprehensive Metabolic Panel (10/24/2021 9:00 AM CDT) Analysis Performed At Path logist Time Signature Potassium, P 3.4 (L) [...] eGFR-Black/Afri 17 (L) >=60 10/24/2021 [facility] can [place] mL/min/BSA 9:26 AM CDT Comment: ----ADDITIONAL INFORMATION---- Estimated GFR calculated using the 2009 CKD_EPI creatinine equation. eGFR Non-Black/ <15 (L) >=60 mL/min/BSA 10/24/2021 9:26 AM CDT [facility] [place] Comment: ----ADDITIONAL INFORMATION---- Estimated GFR calculated using [...] M.S. LAB BLOOD ADD-ON Performing Organization Address City/State/[facility] Code Phon e Number [address] [address] [facility] [address] (ABNORMAL) CBC without Differential (10/24/2021 9:00 AM CDT) [facility] gist Method Time Signature Hemoglobin 10.2 (L) [...] Address City/State/ZIP Code Phon e Number [address] [address] [facility] [address] (ABNORMAL) Glucose, Fasting (10/24/2021 8:57 AM CDT) P athologist Signature Glucose, P 149 (H) 70 - 100 10/24/2021 [facility] mg/dL 9:24 AM CDT Last Intake 13 hr 10/24/2021 [facility] 9:00 AM CDT Specimen Anatomical Collection Method Collection Time Receive d Time (Source) Location / / Volume Laterality Blood (Blood, 10/24/2021 8:57 AM 10/25/19 22 9:01 Venous) CDT AM CDT Trung Plasencia P.A.-C., M.S. LAB BLOOD NON ADD-ON Performing Organization Address City/State/[facility] Code Phon e Number [facility]- [address] [place] [address] [facility] [address] documented in this encounter Visit Diagnoses Diagnosis Transplant Liver (HCC) Medication Therapy Alf Not Anticoa gulant Colitis Cytomegalovirus (HCC) documented in this encounter Additional Health Concerns Assessment Noted Time PHQ-9 Depression Total Score: 4 11/28/2020 10:17 AM CD T documented as of this encounter Care Teams Employment Trainer Relationship Specialty Start Date End Date Elsewhere, Pcp PCP - General Family Medicine 07/29/17 [facility] - Laboratory Medicine 04/12/20 [place] [address] documented as of this encounter
--- OUTSIDE RECORDS SUMMARY | 2022-05-17 18:26 | XMS_ITS | Encounter Summary ---
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 - 11/01/2021 2:34 PM CDT LDA documentation. documented in 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 [address] [place] [phone] 05/23/2022 Clinical Admitting/Central Communication Scheduling 05/27/2022 Comprehensive Visit Orthopedic Surgery Markus Sams M.D., Ph.D. [address] [place] [phone] 05/29/2022 Office Visit Otorhinolaryngology Dex Matta APRN, C.N.P., M.S.N. [address] [place] [phone] 05/29/2022 Office Visit Otorhinolaryngology Nadeem Maradiaga P.Murtaza.-Arley., M.S. [address] [place] [phone] 05/31/2022 Appointment Radiology Guilherme Matt MPAS, Edmundo, M.S. [address] [place] [phone] 06/05/2022 Appointment Laboratory Medicine Angélica Granger P.A.-C. [address] [place] [phone] 06/19/2022 Appointment Laboratory Medicine Angélica Granger P.A.-C. [address] [place] [phone] 07/03/2022 Appointment Laboratory Medicine Angélica Granger P.A.-C. [address] [place] [phone] 07/17/2022 Appointment Laboratory Medicine Angélica Granger P.A.-C. [address] [place] [phone] 07/31/2022 Appointment Laboratory Medicine Angélica Granger P.A.-C. [address] [place] [phone] 08/14/2022 Appointment Laboratory Medicine Angélica Granger P.A.-C. [address] [place] [phone] 08/28/2022 Appointment Laboratory Medicine Angélica Granger P.A.-C. [address] [place] [phone] documented as of this encounter Visit Diagnoses Not on filedocumented in this encounter Additional Health Concerns Assessment Noted Time PHQ-9 Depression Total Score: 4 11/28/2020 10:17 AM CD T documented as of this encounter Care Teams Candle Molder Hand Relationship Specialty Start Date End Date Elsewhere, Pcp PCP - General Family Medicine 07/29/17 [facility] - Laboratory Medicine 04/12/20 [place] [phone] documented as of this encounter
--- OUTSIDE RECORDS SUMMARY | 2022-05-17 18:26 | XMS_ITS | Encounter Summary ---
:1955 Author Organization [facility] Address [address] [place] [address] Care Team Providers Name Role Phone Elsewhere, Pcp Primary Care Provider Unavailable Reason for Visit Reason Comments Communication Encounter Details Date Type Department Care Team Description 10/26/2021 Clinical Communication Division of [facility] Endocrinology in M, R.[place]. 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 [address] [place] [phone] 05/23/2022 Clinical Admitting/Central Communication Scheduling 05/27/2022 Comprehensive Visit Orthopedic Surgery Markus Sams M.D., Ph.D. [address] [place] [phone] 05/29/2022 Office Visit Otorhinolaryngology Dex Matta APRN CDemetriusNFabrice., M.S.N. [address] [place] [phone] 05/29/2022 Office Visit Otorhinolaryngology Nadeem Maradiaga P.A.-C., M.S. [address] [place] [phone] 05/31/2022 Appointment Radiology Guilherme Matt MPAS, P.A.-C., M.S. [address] [place] [phone] 06/05/2022 Appointment Laboratory Medicine Angélica Granger P.A.-C. [address] [place] [phone] 06/19/2022 Appointment Laboratory Medicine Angélica Granger P.A.-C. [address] [place] [phone] 07/03/2022 Appointment Laboratory Medicine Angélica Granger P.A.-C. [address] [place] [phone] 07/17/2022 Appointment Laboratory Medicine Angélica Granger P.A.-C. [address] [place] [phone] 07/31/2022 Appointment Laboratory Medicine Angélica Granger P.A.-C. [address] [place] [phone] 08/14/2022 Appointment Laboratory Medicine Angélica Granger P.A.-C. [address] [place] [phone] 08/28/2022 Appointment Laboratory Medicine Angélica Granger P.A.-C. [address] [place] [phone] documented as of this encounter Visit Diagnoses Not on filedocumented in this encounter Additional Health Concerns Assessment Noted Time PHQ-9 Depression Total Score: 4 11/28/2020 10:17 AM CD T documented as of this encounter Care Teams Piledriver Carpenter Relationship Specialty Start Date End Date Elsewhere, Pcp PCP - General Family Medicine 07/29/17 [facility] - Laboratory Medicine 04/12/[address] [address] documented as of this encounter
--- OUTSIDE RECORDS SUMMARY | 2022-05-17 18:26 | XMS_ITS | Encounter Summary ---
:1955 Author Organization [facility] Address [address] [place] [address] Care Team Providers Name Role Phone Elsewhere, Pcp Primary Care Provider Unavailable Reason for Visit Reason Comments Labs Only Encounter Details Date Type Department Care Team Description 11/05/2021 Clinical Communication Irena Gamez [facility] Labs Only Center for R, R.N. 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 - 11/05/2021 5:10 PM CDT Provider who reviewed results: Dr Reyes Recommendations: No medication changes. Labs are due: 1 week Patient Online Services message was initiated by a [facility] Registered Nurse for report of test [...] R.N. *All labs are now found in [facility] - Lab - Flowsheets. For further review of labs, please review there or under Synopsis* documented in 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 [address] [place] [phone] 05/23/2022 Clinical Admitting/Central Communication Scheduling 05/27/2022 Comprehensive Visit Orthopedic Surgery Markus Sams M.D., Ph.D. [address] [place] [phone] 05/29/2022 Office Visit Otorhinolaryngology Dex Matta APRN, C.N.P., M.S.N. [address] [place] [phone] 05/29/2022 Office Visit Otorhinolaryngology Nadeem Maradiaga, Jennifer., M.S. [address] [place] [phone] 05/31/2022 Appointment Radiology Guilherme Matt MPAS, Jennifer., M.S. [address] [place] [phone] 06/05/2022 Appointment Laboratory Medicine Angélica Granger P.A.-C. [address] [place] [address] [phone] 06/19/2022 Appointment Laboratory Medicine Angélica Granger P.A.-C. [address] [place] [address] [phone] 07/03/2022 Appointment Laboratory Medicine Angélica Granger P.A.-C. [address] [place] [phone] 07/17/2022 Appointment Laboratory Medicine Angélica Granger P.A.-C. [address] [place] [phone] 07/31/2022 Appointment Laboratory Medicine Angélica Granger P.A.-C. [address] [place] [phone] 08/14/2022 Appointment Laboratory Medicine Angélica Granger P.A.-C. [address] [place] [phone] 08/28/2022 Appointment Laboratory Medicine Angélica Granger P.A.-C. [address] [place] [phone] documented as of this encounter Visit Diagnoses Not on filedocumented in this encounter Additional Health Concerns Assessment Noted Time PHQ-9 Depression Total Score: 4 11/28/2020 10:17 AM CD T documented as of this encounter Care Teams Media Clerk Relationship Specialty Start Date End Date Elsewhere, Pcp PCP - General Family Medicine 07/29/17 [facility] - Laboratory Medicine 04/12/[address] [address] documented as of this encounter
--- OUTSIDE RECORDS SUMMARY | 2022-05-17 18:26 | XMS_ITS | Encounter Summary ---
:1955 Author Organization [facility] Address [address] [place] [address] Care Team Providers Name Role Phone Elsewhere, Pcp Primary Care Provider Unavailable Reason for Visit Reason Comments Labs Only Encounter Details Date Type Department Care Team Description 10/25/2021 Clinical Communication Irena Gamez [facility] Only [facility] for R, R.N. 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 - 10/25/2021 4:33 PM CDT Provider who reviewed results: Dr Gonzalez Recommendations: No medication changes Labs are due: 1 week Patient Online Services message was initiated by a [facility] Registered Nurse for report of test [...] R.N. *All labs are now found in [email or web address] - Lab - Flowsheets. For further review of labs, please review there or under Synopsis* documented in 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 [address] [place] [address] 05/23/2022 Clinical Admitting/Central Communication Scheduling 05/27/2022 Comprehensive Visit Orthopedic Surgery Markus Sams M.D., Ph.D. [address] [place] [phone] 05/29/2022 Office Visit Otorhinolaryngology Dex Matta APRN, C.NDemetriusP., M.S.N. [address] [place] [phone] 05/29/2022 Office Visit Otorhinolaryngology Nadeem Maradiaga, Edmundo, M.S. [address] [place] [phone] 05/31/2022 Appointment Radiology Guilherme Matt, RASTA, Edmundo, M.S. [address] [place] [phone] 06/05/2022 Appointment Laboratory Medicine Angélica Granger P.A.-C. [address] [place] [phone] 06/19/2022 Appointment Laboratory Medicine Angélica Granger P.A.-C. [address] [place] [phone] 07/03/2022 Appointment Laboratory Medicine Angélica Granger P.A.-C. [address] [place] [phone] 07/17/2022 Appointment Laboratory Medicine Angélica Granger P.A.-C. [address] [place] [phone] 07/31/2022 Appointment Laboratory Medicine Angélica Granger P.A.-C. [address] [place] [phone] 08/14/2022 Appointment Laboratory Medicine Angélica Granger P.A.-C. [address] [place] [phone] 08/28/2022 Appointment Laboratory Medicine Angélica Granger P.A.-C. [address] [place] [address] documented as of this encounter Visit Diagnoses Not on filedocumented in this encounter Additional Health Concerns Assessment Noted Time PHQ-9 Depression Total Score: 4 11/28/2020 10:17 AM CD T documented as of this encounter Care Teams Continuous Pickling Line Pickler Helper Relationship Specialty Start Date End Date Elsewhere, Pcp PCP - General Family Medicine 07/29/17 [facility] - Laboratory Medicine 04/12/[address] [address] documented as of this encounter
--- OUTSIDE RECORDS SUMMARY | 2022-05-17 18:26 | XMS_ITS | Encounter Summary ---
:1955 Author Organization [facility] Address [address] [place] [address] Care Team Providers Name Role Phone Elsewhere, Pcp Primary Care Provider Unavailable Reason for Referral Outpatient (Routine) - Closed Specialty Diagnoses / Procedures Referred By Contact Refer red To Contact Dermatology Diagnoses Squamous Cell Carcinoma In Situ Iza Lim M.D. [facility] Procedures [facility] 1-[address] [place] [phone] Referral ID Status Reason Start Date Expiration Date Visits Requ ested Visits Authorized [id number] Closed 11/08/2021 11/08/2022 1 1 Encounter Details Date Type Department Care Team Description 11/08/2021 Orders Only Department of Iza Lim Squamous Cell Carcinoma In Situ (Primary Dx); Dermatology in [place] Millard M.D. 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 [address] [place] [phone] 05/23/2022 Clinical Admitting/Central Communication Scheduling 05/27/2022 Comprehensive Visit Orthopedic Surgery Markus Sams M.D., Ph.D. [address] [place] [phone] 05/29/2022 Office Visit Otorhinolaryngology Dex Matta APRN, C.N.PDemetrius, M.S.N. [address] [place] [phone] 05/29/2022 Office Visit Otorhinolaryngology Nadeem Maradiaga P.A.-C., M.S. [address] [place] [phone] 05/31/2022 Appointment Radiology Guilherme Matt MPAS, P.A.-C., M.S. [address] [place] [phone] 06/05/2022 Appointment Laboratory Medicine Angélica Granger P.A.-C. [address] [place] [phone] 06/19/2022 Appointment Laboratory Medicine Angélica Granger P.A.-C. [address] [place] [phone] 07/03/2022 Appointment Laboratory Medicine Angélica Granger P.A.-C. [address] [place] [phone] 07/17/2022 Appointment Laboratory Medicine Angélica Granger P.A.-C. [address] [place] [phone] 07/31/2022 Appointment Laboratory Medicine Angélica Granger P.A.-C. [address] [place] [phone] 08/14/2022 Appointment Laboratory Medicine Angélica Granger P.A.-C. [address] [place] [phone] 08/28/2022 Appointment Laboratory Medicine Angélica Granger P.A.-C. [address] [place] [address] Scheduled Orders Name Type Priority Associated Diagnoses Order S chejohn [facility] 1-4 sites Dermatology Routine Squamous Cell Carcinom [...] as of this encounter Care Teams Web Manager Relationship Specialty Start Date End Date Elsewhere, Pcp PCP - General Family Medicine 07/29/17 [facility] - Laboratory Medicine 04/12/[address] [address] documented as of this encounter
--- OUTSIDE RECORDS SUMMARY | 2022-05-17 18:26 | XMS_ITS | Encounter Summary ---
:1955 Author Organization [facility] Address [address] [place] [address] Care Team Providers Name Role Phone Elsewhere, Pcp Primary Care Provider Unavailable Encounter Details Date Type Department Care Team Description 10/31/2021 Hospital Encounter Department of Trung Plasencia Liver (HCC); Laboratory Medicine Edmundo Stern, Medicati on Therapy Halfway Not Anticoagulant; in Jimmie Blake M.S. 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 Transplant Liver ([facility]) lidocaine-prilocaine Apply 1 application 30 g 11 202102/07/2022 (EMLA) 2.5-2.5 % cream topically See Admin Instructions. 2 hours prior to dialysis. mycophenolate (CELLCEPT) Take 2 capsules 360 capsule 3 10/1902/15/2022 250 mg (500 mg total) by capsuleIndications: mouth 2 (two) times Transplant Liver ([facility]), a day. Do not Infection break, cut, or open Cytomegalovirus ([facility]), capsules. Medication Therapy Halfway Not Anticoagulant NIFEdipine [...] Laboratory Medicine Angélica Granger P.A.-C. [address] [place] [phone] 05/23/2022 Clinical Admitting/Central Communication Scheduling 05/27/2022 Comprehensive Visit Orthopedic Surgery Markus Sams M.D., Ph.D. [address] [place] [phone] 05/29/2022 Office Visit Otorhinolaryngology Dex Matta APRN, C.N.P., M.S.N. [address] [place] [phone] 05/29/2022 Office Visit Otorhinolaryngology Nadeem Maradiaga, Evan.Murtaza.-C., M.S. [address] [place] [phone] 05/31/2022 Appointment Radiology Guilherme Matt MPAS, P.Murtaza.-Arley., M.S. [address] [place] [phone] 06/05/2022 Appointment Laboratory Medicine Angélica Granger P.A.-C. [address] [place] [phone] 06/19/2022 Appointment Laboratory Medicine Angélica Granger P.A.-C. [address] [place] [phone] 07/03/2022 Appointment Laboratory Medicine Angélica Granger P.A.-C. [address] [place] [phone] 07/17/2022 Appointment Laboratory Medicine Angélica Granger P.A.-C. [address] [place] [phone] 07/31/2022 Appointment Laboratory Medicine Angélica Granger P.A.-C. [address] [place] [phone] 08/14/2022 Appointment Laboratory Medicine Angélica Granger P.A.-C. [address] [place] [phone] 08/28/2022 Appointment Laboratory Medicine Angélica Granger P.A.-C. [address] [place] [phone] documented as of this encounter Procedures Procedure Name Priority Date/Time Associated Diagnosis Comme nts CMV DNA DETECT/QUANT, Routine 10/31/2021 8:28 Transplant Liver (HCC) Results for this P AM CDT Medication Therapy procedure are in Service Cashier Not the results Anticoagulant section. Colitis Cytomegalovirus (HCC) TACROLIMUS LEVEL, B Routine 10/31/2021 8:28 Transplant L iver (HCC) Results for this AM CDT Medication Therapy procedure are in Service Cashier Not the results Anticoagulant section. Colitis Cytomegalovirus (HCC) CBC WITHOUT Routine 10/31/2021 8:28 Transplant Liver (HCC) Results for this DIFFERENTIAL, B AM CDT Medication Therapy proced ure are in Halfway Not the results Anticoagulant section. Colitis Cytomegalovirus (HCC) GLUCOSE, FASTING, S/P Routine 10/31/2021 8:28 Transplant Liver (HCC) Results for this AM CDT Medication Therapy procedure are in Service Cashier Not the results Anticoagulant section. Colitis Cytomegalovirus (HCC) COMPREHENSIVE Routine 10/31/2021 8:28 Transplant Liver (HCC) Results for this METABOLIC PANEL, S/P AM CDT Medication Therapy p rocedure are in Service Cashier Not the results Anticoagulant section. Colitis Cytomegalovirus (HCC) documented in this encounter Results (ABNORMAL) Tacrolimus, B (10/31/2021 8:28 AM CDT) athologist Signature Tacrolimus, B <1.0 (L) 5.0-15.0 11/01/2021 [facility] (Trough) 10:57 AM CDT ng/mL Comment: ----ADDITIONAL [...] performa nce characteristics determined by [facility] in a manner consistent with CLIA requirements. This test has not been cleared or approved by the U.S. Mer d and Drug Administration. Specimen Anatomical Collection Method Collection Time Receive d Time (Source) Location / / Volume Laterality Blood (Blood, 10/31/2021 8:28 AM 11/02/19 7:25 Venous) CDT AM CDT Trung Plasencia P.A.-C., M.S. LAB BLOOD NON ADD-ON Performing Organization Address City/State/ZIP Code Phon e Number [facility] [address] [place], [place] [address] SUPPORT CENTER [facility] [place] [address] Laboratory Medicine and Pathology [address] [place] (ABNORMAL) CMV DNA Detect / Quant, Plasma (10/31/2021 8:28 AM CDT) Patholo gist Method Time Signature CMV DNA <35 (A) Undetected 11/01/2021 [facility] Detect/Quant, IU/mL 11:52 AM CDT P Comment: [...] performed u sing the tika CMV test ([employer] with the tika 6800 System. Specimen Anatomical Collection Method Collection Time Receive d Time (Source) Location / / Volume Laterality Blood (Blood, 10/31/2021 8:28 AM 11/02/19 7:04 Venous) CDT AM CDT Trung Plasencia P.A.-C., M.S. LAB MICROBIOLOGY - BLOOD O RDERABLES Performing Organization Address City/State/ZIP Code Phon e Number [facility] [address] [place], [place] [address] SUPPORT CENTER [facility] [place] [address] Laboratory Medicine and Pathology [address] [place] [address] Dr. [place] (ABNORMAL) Glucose, Fasting (10/31/2021 8:28 [...] Organization Address City/State/ZIP Code Phon e Number [address] [place] [address] [place] [address] (ABNORMAL) Comprehensive Metabolic Panel (10/31/2021 8:28 [...] eGFR-Black/Afri 19 (L) >=60 10/31/2021 [facility] can [place] mL/min/BSA 8:57 AM CDT Comment: ----ADDITIONAL INFORMATION---- Estimated GFR calculated using the 2009 CKD_EPI creatinine equation. eGFR Non-Black/ 16 (L) >=60 mL/min/BSA 10/31/2021 8:57 AM CDT [facility] [place] Comment: ----ADDITIONAL INFORMATION---- Estimated GFR calculated [...] 8:30 Venous) CDT AM CDT Trung Plasencia P.A.-C. M.S. LAB BLOOD ADD-ON Performing Organization Address City/State/ZIP Code Phon e Number [facility]- [address] [place] [address] [place] [address] (ABNORMAL) CBC without Differential (10/31/2021 8:28 AM CDT) [facility] [place] [facility] Method Time Signature Hemoglobin 10.4 (L) 13.2 [...] M.S. LAB BLOOD ADD-ON Performing Organization Address City/State/[facility] Code Phon e Number [facility]- [address] [place] [address] [place] [address] [place] [address] [address] documented in this encounter Visit Diagnoses Diagnosis Transplant Liver (HCC) Medication Therapy Service Cashier Not Anticoa gulant Colitis Cytomegalovirus (HCC) documented in this encounter Additional Health Concerns Assessment Noted Time PHQ-9 Depression Total Score: 4 11/28/2020 10:17 AM CD T documented as of this encounter Care Teams Correctional Medicine Physician Relationship Specialty Start Date End Date Elsewhere, Pcp PCP - General Family Medicine 07/29/17 [facility] - Laboratory Medicine 04/12/[address] [address] documented as of this encounter
--- OUTSIDE RECORDS SUMMARY | 2022-05-17 18:26 | XMS_ITS | Encounter Summary ---
:1955 Author Organization [facility] Address [address] [place] [address] Care Team Providers Name Role Phone Elsewhere, [...] Laboratory Medicine Angélica Granger P.A.-C. [address] [place] [phone] 05/23/2022 Clinical Admitting/Central Communication Scheduling 05/27/2022 Comprehensive Visit Orthopedic Surgery Markus Sams M.D., Ph.D. [address] [place] [phone] 05/29/2022 Office Visit Otorhinolaryngology Dex Matta APRN, C.N.P., M.S.N. [address] [place] [phone] 05/29/2022 Office Visit Otorhinolaryngology Nadeem Maradiaga, P.A.-Arley., M.S. [address] [place] [phone] 05/31/2022 Appointment Radiology Guilherme Matt, RASTA, P.Murtaza.Marie., M.S. [address] [place] [phone] 06/05/2022 Appointment Laboratory Medicine Angélica Granger P.A.-C. [address] [place] [phone] 06/19/2022 Appointment Laboratory Medicine Angélica Granger P.A.-C. [address] [place] [phone] 07/03/2022 Appointment Laboratory Medicine Angélica Granger P.A.-C. [address] [place] [phone] 07/17/2022 Appointment Laboratory Medicine Angélica Granger P.A.-C. [address] [place] [phone] 07/31/2022 Appointment Laboratory Medicine Angélica Granger P.A.-C. [address] [place] [phone] 08/14/2022 Appointment Laboratory Medicine Angélica Granger P.A.-C. [address] [place] [phone] 08/28/2022 Appointment Laboratory Medicine Angélica Granger P.A.-C. [address] [place] [phone] documented as of this encounter Procedures Procedure [...] Organization Address City/State/ZIP Code Phon e Number IIMD IIMD NA documented in this encounter Visit Diagnoses Not on filedocumented in this encounter Additional Health Concerns Assessment Noted Time PHQ-9 Depression Total Score: 4 11/28/2020 10:17 AM CD T documented as of this encounter Care Teams Recreation Superintendent Relationship Specialty Start Date End Date Elsewhere, Pcp PCP - General Family Medicine 07/29/17 [facility] - Laboratory Medicine 04/12/20 [place] [phone] documented as of this encounter
--- OUTSIDE RECORDS SUMMARY | 2022-05-17 18:26 | XMS_ITS | Encounter Summary ---
:[address] [facility] Address [address] [place] [address] Care Team Providers Name Role Phone Elsewhere, Pcp Primary Care Provider Unavailable Encounter Details Date Type Department Care Team Description 11/07/2021 Hospital Encounter Department of Trung Plasencia Liver (HCC); Laboratory Medicine Edmundo Stern, Medicati on Therapy [facility] Not Anticoagulant; in Jimmie Blake M.S. 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 Medication Therapy Critical Care Registered Nurse Not Anticoagulant NIFEdipine XL (PROCARDIA Take 1 tablet (30 270 tablet 3 09/2211/23/2021 XL) 30 mg 24 hr mg total) by mouth tabletIndications: daily. Hypertension And Chronic Kidney Disease Stage 4 (HCC) NIFEdipine XL (PROCARDIA Take 60 mg by mouth 0 04/29/2022 XL) 30 mg 24 hr tablet daily. pen needle, diabetic 1 Injection daily. 90 each 0 10/16/ 022 12/10/2021 (Novofine 32) 32 gauge x [...] Description 05/22/2022 Appointment Laboratory Medicine Angélica Granger P.ADemetrius-C. [address] [place] [phone] 05/23/2022 Clinical Admitting/Central Communication Scheduling 05/27/2022 Comprehensive Visit Orthopedic Surgery Markus Sams M.D., Ph.D. [address] [place] [phone] 05/29/2022 Office Visit Otorhinolaryngology Dex Matta APRN, C.N.P., M.S.N. [address] [place] [phone] 05/29/2022 Office Visit Otorhinolaryngology Nadeem Maradiaga P.A.-Arley., M.S. [address] [place] [address] [phone] 05/31/2022 Appointment Radiology Guilherme Matt MPAS, Edmundo, M.S. [address] [place] [address] [phone] 06/05/2022 Appointment Laboratory Medicine Angélica Granger P.A.-C. [address] [place] [phone] 06/19/2022 Appointment Laboratory Medicine Angélica Granger P.A.-C. [address] [place] [address] [phone] 07/03/2022 Appointment Laboratory Medicine Angélica Granger P.A.-C. [address] [place] [phone] 07/17/2022 Appointment Laboratory Medicine Angélica Granger P.A.-C. [address] [place] [address] [phone] 07/31/2022 Appointment Laboratory Medicine Angélica Granger P.A.-C. [address] [place] [phone] 08/14/2022 Appointment Laboratory Medicine Angélica Granger P.A.-C. [address] [place] [address] [phone] 08/28/2022 Appointment Laboratory Medicine Angélica Granger P.A.-C. [address] [place] [phone] documented as of this encounter Procedures Procedure Name Priority Date/Time Associated Diagnosis Comme nts CMV DNA DETECT/QUANT, Routine 11/07/2021 8:31 Transplant Liver (HCC) Results for this P AM CDT Medication Therapy procedure are in Critical Care Registered Nurse Not the results Anticoagulant section. Colitis Cytomegalovirus (HCC) TACROLIMUS LEVEL, B Routine 11/07/2021 8:31 Transplant L iver (HCC) Results for this AM CDT Medication Therapy procedure are in Critical Care Registered Nurse Not the results Anticoagulant section. Colitis Cytomegalovirus (HCC) CBC WITHOUT Routine 11/07/2021 8:31 Transplant Liver (HCC) Results for this DIFFERENTIAL, B AM CDT Medication Therapy proced ure are in [facility] Not the results Anticoagulant section. Colitis Cytomegalovirus (HCC) GLUCOSE, FASTING, S/P Routine 11/07/2021 8:31 Transplant Liver (HCC) Results for this AM CDT Medication Therapy procedure are in [facility] Not the results Anticoagulant section. Colitis Cytomegalovirus (HCC) COMPREHENSIVE Routine 11/07/2021 8:31 Transplant Liver (HCC) Results for this METABOLIC PANEL, S/P AM CDT Medication Therapy p rocedure are in [facility] Not the results Anticoagulant section. Colitis Cytomegalovirus (HCC) documented in this encounter Results (ABNORMAL) Tacrolimus, B (11/07/2021 8:31 AM CDT) P athologist Signature Tacrolimus, B <1.0 (L) 5.0-15.0 11/08/2021 [facility]SC (Trough) 10:47 AM CDT ng/mL Comment: ----ADDITIONAL [...] characteristics determined by [facility] in a manner consistent with CLIA requirements. This test has not been cleared or approved by the U.S. Mer d and Drug Administration. Specimen Anatomical Collection Method Collection Time Receive d Time (Source) Location / / Volume Laterality Blood (Blood, 11/07/2021 8:31 AM 11/09/19 7:06 Venous) CDT AM CDT Trung Plasencia P.A.-C., M.S. LAB BLOOD NON ADD-ON Performing Organization Address [facility] Phon e Number [address] MURILLO [place] [address] 05 [place]PPORT [place] [address] Laboratory Medicine and Pathology [address] [place] [address] Dr. MURILLO (ABNORMAL) CMV DNA Detect / Quant, Plasma (11/07/2021 8:31 AM CDT) Patholo gist Method Time Signature CMV DNA <35 (A) Undetected 11/08/2021 [facility] Detect/Quant, IU/mL 7:22 PM CDT P Comment: [...] performed u sing the tika CMV test ([employer] with the tika [employer] System. Specimen Anatomical Collection Method Collection Time Receive d Time (Source) Location / / Volume Laterality Blood (Blood, 11/07/2021 8:31 AM 11/08/19 8:44 Venous) CDT PM CDT Trung Plasencia P.A.-C., M.S. LAB MICROBIOLOGY - BLOOD O RDERABLES Performing Organization Address [facility] Phon e Number [address] [place] [address] 05 [facility] [place] [address] Laboratory Medicine and Pathology [address] [place] [address] Dr. MURILLO Glucose, Fasting (11/07/2021 8:31 AM CDT) athologist Signature Glucose, P 98 70 - 100 11/07/2021 [facility] mg/dL 8:59 AM CDT Last Intake 6 hr 11/07/2021 [facility] 8:31 AM CDT Specimen Anatomical Collection Method Collection Time Receive d Time (Source) Location / / Volume Laterality Blood (Blood, 11/07/2021 8:31 AM 11/08/19 8:33 Venous) CDT AM CDT Trung Plasencia P.A.-C. MDemetriusS. LAB BLOOD NON ADD-ON Performing Organization Address City/State/ZIP Code Phon e Number [facility]- [address] [place] [address] [place] [address] (ABNORMAL) Comprehensive Metabolic Panel (11/07/2021 8:31 [...] eGFR-Black/Afri 25 (L) >=60 11/07/2021 [facility] can [place] mL/min/BSA 9:02 AM CDT Comment: ----ADDITIONAL INFORMATION---- Estimated GFR calculated using the 2009 CKD_EPI creatinine equation. eGFR Non-Black/ 21 (L) >=60 mL/min/BSA 11/07/2021 9:02 AM CDT CN[facility] [place] Comment: ----ADDITIONAL INFORMATION---- Estimated GFR calculated using [...] LAB BLOOD ADD-ON Performing Organization Address City/State/[facility] Code Phon e Number [address] [address] [place] [address] System [address] (ABNORMAL) CBC without Differential (11/07/2021 8:31 AM CDT) [facility] gist Method Time Signature Hemoglobin 10.2 (L) [...] Laterality Blood (Blood, 11/07/2021 8:31 AM 11/08/19 22 8:33 Venous) CDT AM CDT Trung Plasencia P.A.-C., M.S. LAB BLOOD ADD-ON Performing Organization Address City/State/[facility] Phon e Number [facility]- [address] [place] [id number] [place] [address] [place] [address] System [address] documented in this encounter Visit Diagnoses Diagnosis Transplant Liver (HCC) Medication Therapy [facility] Not Anticoa gulant Colitis Cytomegalovirus (HCC) documented in this encounter Additional Health Concerns Assessment Noted Time PHQ-9 Depression Total Score: 4 11/28/2020 10:17 AM CD T documented as of this encounter Care Teams Makeup Sales Advisor Relationship Specialty Start Date End Date Elsewhere, Pcp PCP - General Family Medicine 07/29/17 [facility] - Laboratory Medicine 04/12/20 [place] [address] documented as of this encounter
--- OUTSIDE RECORDS SUMMARY | 2022-05-17 18:26 | XMS_ITS | Encounter Summary ---
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 [address] [place] [address] Referral ID Status Reason Start Date Expiration Date Visits Requ ested Visits Authorized [id number] Closed 07/23/2021 07/23/2022 1 1 Encounter Details Date Type Department Care Team Description 11/05/2021 Comprehensive Visit Department of Iza Lim is Actinic (Primary Dx); Dermatology in [place] Millard M.D. 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 [address] [place] [phone] 05/23/2022 Clinical Admitting/Central Communication Scheduling 05/27/2022 Comprehensive Visit Orthopedic Surgery Markus Sams M.D., Ph.D. [address] [place] [phone] 05/29/2022 Office Visit Otorhinolaryngology Dex Matta APRN, C.N.P., M.S.N. [address] [place] [address] [phone] 05/29/2022 Office Visit Otorhinolaryngology Nadeem Maradiaga P.A.-C., M.S. [address] [place] [address] [phone] 05/31/2022 Appointment Radiology Guilherme Matt MPAS, P.A.-C., M.S. [address] [place] [address] [phone] 06/05/2022 Appointment Laboratory Medicine Angélica Granger P.A.-C. [address] [place] [phone] 06/19/2022 Appointment Laboratory Medicine Angélica Granger P.A.-C. [address] [place] [phone] 07/03/2022 Appointment Laboratory Medicine Angélica Granger P.A.-C. [address] [place] [phone] 07/17/2022 Appointment Laboratory Medicine Angélica Granger P.A.-C. [address] [place] [phone] 07/31/2022 Appointment Laboratory Medicine Angélica Granger P.A.-C. [address] [place] [phone] 08/14/2022 Appointment Laboratory Medicine Angélica Granger P.A.-C. [address] [place] [phone] 08/28/2022 Appointment Laboratory Medicine Angélica Granger P.A.-C. [address] [place] [phone] documented as of this encounter Procedures Procedure Name Priority Date/Time Associated Diagnosis Comme [facility] DERMATOPATHOLOGY Routine 11/05/2021 11:45 AM Transplant Liver Results for this CDT (HCC) procedure are i n the results section. documented in this encounter Results Dermatopathology (11/05/2021 11:45 AM CDT) Component Value Ref Test Analysis Performed At [facility] Range Method Time Signature 11/08/2021 [facility] 8:56 AM CDT Report Nancy I. 11/08/2021 PDR electronically Sada Lawrence 8:56 AM CDT signed by Gross Description Received in formalin labeled with patient's name, medical 11/08/2021 [facility] record number and right conchal bowl is a 0.8 x 0.7 x 0.1 8:56 AM CDT cm white skin shave biopsy. ??There is a 0.6 x 0.6 cm pale grady-brown raised, firm, bosselated lesion with irregular borders encompassing nearly the entire skin surface. ??The specimen is trisected and submitted entirely in cassette A1. ??Grossed by AR. Interpretation FINAL DIAGNOSIS 11/08/2021 PDRM A. ??Right [...] Organization Address City/State/ZIP Code Phon e Number [facility] - [address] [place] [address] [address] [place] [address] [facility] 200 [facility] documented in this encounter Visit Diagnoses Diagnosis Keratosis [facility]inic - Primary Transplant Liver (HCC) Lesion Skin Ear Pityriasis Versicolor documented in this encounter Additional Health Concerns Assessment Noted Time PHQ-9 Depression Total Score: 4 11/28/2020 10:17 AM CD T documented as of this encounter Care Teams Printed Circuit Board Panels Deburrer Relationship Specialty Start Date End Date Elsewhere, Pcp PCP - General Family Medicine 07/29/17 [facility] - Laboratory Medicine 04/12/[address] [address] documented as of this encounter
--- OUTSIDE RECORDS SUMMARY | 2022-05-17 18:26 | XMS_ITS | Encounter Summary ---
:[address] [facility] Address [address] [place] [address] Care Team Providers Name Role Phone Elsewhere, Pcp Primary Care Provider Unavailable Reason for Visit Reason Comments Blood Glucose Review and Insulin Dosing Encounter Details Date Type Department Care Team Description 10/25/2021 Clinical Communication Division of Zarina Cotto Blood Glucose Endocrinology in [place], [place]. 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 - 10/25/2021 8:26 AM CDT INFORMATION DISCUSSED [...] following references were used:??nursing clinical judgment and [facility] protocols, DCS provider.? documented in 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 [address] [place] [phone] 05/23/2022 Clinical Admitting/Central Communication Scheduling 05/27/2022 Comprehensive Visit Orthopedic Surgery Markus Sams M.D., Ph.D. [address] [place] [phone] 05/29/2022 Office Visit Otorhinolaryngology Dex Matta APRN, C.N.P., M.S.N. [address] [place] [phone] 05/29/2022 Office Visit Otorhinolaryngology Nadeem Maradiaga P.A.-C., M.S. [address] [place] [phone] 05/31/2022 Appointment Radiology Guilherme Matt MPAS, Edmundo, M.S. [address] [place] [phone] 06/05/2022 Appointment Laboratory Medicine Angélica Granger P.A.-C. [address] [place] [address] [phone] 06/19/2022 Appointment Laboratory Medicine Angélica Granger P.A.-C. [address] [place] [address] [phone] 07/03/2022 Appointment Laboratory Medicine Angélica Granger P.A.-C. [address] [place] [address] [phone] 07/17/2022 Appointment Laboratory Medicine Angélica Granger P.A.-C. [address] [place] [phone] 07/31/2022 Appointment Laboratory Medicine Angélica Granger P.A.-C. [address] [place] [phone] 08/14/2022 Appointment Laboratory Medicine Angélica Granger P.A.-C. [address] [place] [phone] 08/28/2022 Appointment Laboratory Medicine Angélica Granger P.A.-C. [address] [place] [phone] documented as of this encounter Visit Diagnoses Not on filedocumented in this encounter Additional Health Concerns Assessment Noted Time PHQ-9 Depression Total Score: 4 11/28/2020 10:17 AM CD T documented as of this encounter Care Teams 4Th Grade Teacher Relationship Specialty Start Date End Date Elsewhere, Pcp PCP - General Family Medicine 07/29/17 [facility] - Laboratory Medicine 04/12/[address] [address] documented as of this encounter
--- OUTSIDE RECORDS SUMMARY | 2022-05-17 18:26 | XMS_ITS | Encounter Summary ---
:1955 Author Organization [facility] Address [address] [place] [address] Care Team Providers Name Role Phone Elsewhere, Pcp Primary Care Provider Unavailable Encounter Details Date Type Department Care Team Description 10/31/2021 Orders Only Division of Nephrology and Elissa Wilcox A PRN, Hypertension, Yazidism C.N.P. 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 [address] [place] [phone] 05/23/2022 Clinical Admitting/Central Communication Scheduling 05/27/2022 Comprehensive Visit Orthopedic Surgery Markus Sams M.D., Ph.D. [address] [place] [phone] 05/29/2022 Office Visit Otorhinolaryngology Dex Matta APRN, C.N.P., M.S.N. [address] [place] [phone] 05/29/2022 Office Visit Otorhinolaryngology Nadeem Maradiaga, P.Murtaza.-Arley., M.S. [address] [place] [address] [phone] 05/31/2022 Appointment Radiology Guilherme Matt MPAS, Jennifer., M.S. [address] [place] [phone] 06/05/2022 Appointment Laboratory Medicine Angélica Granger P.A.-C. [address] [place] [phone] 06/19/2022 Appointment Laboratory Medicine Angélica Granger P.A.-C. [address] [place] [phone] 07/03/2022 Appointment Laboratory Medicine Angélica Granger P.A.-C. [address] [place] [phone] 07/17/2022 Appointment Laboratory Medicine Angélica Granger P.A.-C. [address] [place] [phone] 07/31/2022 Appointment Laboratory Medicine Angélica Granger P.A.-C. [address] [place] [phone] 08/14/2022 Appointment Laboratory Medicine Angélica Granger P.A.-C. [address] [place] [phone] 08/28/2022 Appointment Laboratory Medicine Angélica Granger P.A.-C. [address] [place] [phone] documented as of this encounter Visit Diagnoses Not on filedocumented in this encounter Additional Health Concerns Assessment Noted Time PHQ-9 Depression Total Score: 4 11/28/2020 10:17 AM CD T documented as of this encounter Care Teams Deck Mate Relationship Specialty Start Date End Date Elsewhere, Pcp PCP - General Family Medicine 07/29/17 [facility] - Laboratory Medicine 04/12/[address] [address] documented as of this encounter
--- OUTSIDE RECORDS SUMMARY | 2022-05-17 18:26 | XMS_ITS | Encounter Summary ---
:1955 Author Organization [facility] Address [address] [place] [address] Care Team Providers Name Role Phone Elsewhere, Pcp Primary Care Provider Unavailable Encounter Details Date Type Department Care Team Description 11/03/2021 Orders Only Division of Nephrology and Elissa Wilcox A PRN, Hypertension, Jewish C.N.P. 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 [address] [place] [phone] 05/23/2022 Clinical Admitting/Central Communication Scheduling 05/27/2022 Comprehensive Visit Orthopedic Surgery Markus Sams M.D., Ph.D. [address] [place] [phone] 05/29/2022 Office Visit Otorhinolaryngology Dex Matta APRN, C.N.P., M.S.N. [address] [place] [phone] 05/29/2022 Office Visit Otorhinolaryngology Nadeem Maradiaga, P.uMrtaza.-Arley., M.S. [address] [place] [address] [phone] 05/31/2022 Appointment Radiology Guilherme Matt MPAS, Jennifer., M.S. [address] [place] [phone] 06/05/2022 Appointment Laboratory Medicine Angélica Granger P.A.-C. [address] [place] [phone] 06/19/2022 Appointment Laboratory Medicine Angélica Granger P.A.-C. [address] [place] [phone] 07/03/2022 Appointment Laboratory Medicine Angélica Granger P.A.-C. [address] [place] [phone] 07/17/2022 Appointment Laboratory Medicine Angélica Granger P.A.-C. [address] [place] [phone] 07/31/2022 Appointment Laboratory Medicine Angélica Granger P.A.-C. [address] [place] [phone] 08/14/2022 Appointment Laboratory Medicine Angélica Granger P.A.-C. [address] [place] [phone] 08/28/2022 Appointment Laboratory Medicine Angélica Granger P.A.-C. [address] [place] [phone] documented as of this encounter Visit Diagnoses Not on filedocumented in this encounter Additional Health Concerns Assessment Noted Time PHQ-9 Depression Total Score: 4 11/28/2020 10:17 AM CD T documented as of this encounter Care Teams Billing Analyst Relationship Specialty Start Date End Date Elsewhere, Pcp PCP - General Family Medicine 07/29/17 [facility] - Laboratory Medicine 04/12/[address] [address] documented as of this encounter
--- OUTSIDE RECORDS SUMMARY | 2022-05-17 18:26 | XMS_ITS | Encounter Summary ---
:1955 Author Organization [facility] Address [address] [place] [address] Care Team Providers Name Role Phone Elsewhere, Pcp Primary Care Provider Unavailable Reason for Visit Reason Comments Blood Glucose Review and Insulin Dosing Encounter Details Date Type Department Care Team Description 10/24/2021 Clinical Communication Division of Zarina Cotto Blood Glucose Endocrinology in D, R.N. 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 documented in 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 [address] [place] [address] 05/23/2022 Clinical Admitting/Central Communication Scheduling 05/27/2022 Comprehensive Visit Orthopedic Surgery Markus Sams M.D., Ph.D. [address] [place] [address] [phone] 05/29/2022 Office Visit Otorhinolaryngology Dex Matta APRN CDemetriusNDemetriusP., M.S.N. [address] [place] [phone] 05/29/2022 Office Visit Otorhinolaryngology Nadeem Maradiaga P.A.-C., M.S. [address] [place] [phone] 05/31/2022 Appointment Radiology Guilherme Matt MPAS, Jennifer., M.S. [address] [place] [phone] 06/05/2022 Appointment Laboratory Medicine Angélica Granger P.A.-C. [address] [place] [address] [phone] 06/19/2022 Appointment Laboratory Medicine Angélica Granger P.A.-C. [address] [place] [address] [phone] 07/03/2022 Appointment Laboratory Medicine Angélica Granger P.A.-C. [address] [place] [address] [phone] 07/17/2022 Appointment Laboratory Medicine Angélica Granger P.A.-C. [address] [place] [phone] 07/31/2022 Appointment Laboratory Medicine Angélica Granger P.A.-C. [address] [place] [address] 08/14/2022 Appointment Laboratory Medicine Angélica Granger P.A.-C. [address] [place] [address] 08/28/2022 Appointment Laboratory Medicine Angélica Granger P.A.-C. [address] [place] [address] documented as of this encounter Visit Diagnoses Not on filedocumented in this encounter Additional Health Concerns Assessment Noted Time PHQ-9 Depression Total Score: 4 11/28/2020 10:17 AM CD T documented as of this encounter Care Teams Mounter Flutes And Piccolos Relationship Specialty Start Date End Date Elsewhere, Pcp PCP - General Family Medicine 07/29/[address] [facility] - Laboratory Medicine 04/12/[address] [address] documented as of this encounter
--- OUTSIDE RECORDS SUMMARY | 2022-05-17 18:27 | XMS_ITS | Encounter Summary ---
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 - 10/21/2021 7:50 AM CDT INFORMATION DISCUSSED [...] care: Yes The following references were used: [facility] protocols documented in 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 [address] [place] [phone] 05/23/2022 Clinical Admitting/Central Communication Scheduling 05/27/2022 Comprehensive Visit Orthopedic Surgery Markus Sams M.D., Ph.D. [address] [place] [phone] 05/29/2022 Office Visit Otorhinolaryngology Dex Matta APRN, CDemetriusNDemetriusP., M.S.N. [address] [place] [address] [phone] 05/29/2022 Office Visit Otorhinolaryngology Nadeem Maradiaga, Edmundo, M.S. [address] [place] [address] [phone] 05/31/2022 Appointment Radiology Guilherme Matt, RASTA, Edmundo, M.S. [address] [place] [phone] 06/05/2022 Appointment Laboratory Medicine Angélica Granger P.A.-C. [address] [place] [phone] 06/19/2022 Appointment Laboratory Medicine Angélica Granger P.A.-C. [address] [place] [phone] 07/03/2022 Appointment Laboratory Medicine Angélica Granger P.A.-C. [address] [place] [phone] 07/17/2022 Appointment Laboratory Medicine Angélica Granger P.A.-C. [address] [place] [phone] 07/31/2022 Appointment Laboratory Medicine Angélica Granger P.A.-C. [address] [place] [phone] 08/14/2022 Appointment Laboratory Medicine Angélica Granger P.A.-C. [address] [place] [phone] 08/28/2022 Appointment Laboratory Medicine Angélica Granger P.A.-C. [address] [place] [phone] documented as of this encounter Visit Diagnoses Not on filedocumented in this encounter Additional Health Concerns Assessment Noted Time PHQ-9 Depression Total Score: 4 11/28/2020 10:17 AM CD T documented as of this encounter Care Teams Overhead Door Technician Relationship Specialty Start Date End Date Elsewhere, Pcp PCP - General Family Medicine 07/29/17 [facility] - Laboratory Medicine 04/12/[address] [address] documented as of this encounter
--- OUTSIDE RECORDS SUMMARY | 2022-05-17 18:27 | XMS_ITS | Encounter Summary ---
:1955 Author Organization [facility] Address [address] [place] [address] Care Team Providers Name Role Phone Elsewhere, Pcp Primary Care Provider Unavailable Encounter Details Date Type Department Care Team Description 10/20/2021 Clinical Communication Division of [facility], Endocrinology in [facility] Zuleika Tubbs [place], [place] [phone] 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 [address] [place] [phone] 05/23/2022 Clinical Admitting/Central Communication Scheduling 05/27/2022 Comprehensive Visit Orthopedic Surgery Markus Sams M.D., Ph.D. [address] [place] [phone] 05/29/2022 Office Visit Otorhinolaryngology GosDex jackson APRN, C.N.P., M.S.N. [address] [place] [address] [phone] 05/29/2022 Office Visit Otorhinolaryngology Nadeem Maradiaga P.A.-C., M.S. [address] [place] [phone] 05/31/2022 Appointment Radiology Guilherme Matt MPAS, P.A.-C., M.S. [address] [place] [phone] 06/05/2022 Appointment Laboratory Medicine Angélica Granger P.A.-C. [address] [place] [phone] 06/19/2022 Appointment Laboratory Medicine Angélica Granger P.A.-C. [address] [place] [phone] 07/03/2022 Appointment Laboratory Medicine Angélica Granger P.A.-C. [address] [place] [phone] 07/17/2022 Appointment Laboratory Medicine Angélica Granger P.A.-C. [address] [place] [phone] 07/31/2022 Appointment Laboratory Medicine Angélica Granger P.A.-C. [address] [place] [phone] 08/14/2022 Appointment Laboratory Medicine Angélica Granger P.A.-C. [address] [place] [phone] 08/28/2022 Appointment Laboratory Medicine Angélica Granger P.A.-C. [address] [place] [address] documented as of this encounter Visit Diagnoses Not on filedocumented in this encounter Additional Health Concerns Assessment Noted Time PHQ-9 Depression Total Score: 4 11/28/2020 10:17 AM CD T documented as of this encounter Care Teams Rn Orthopedic Relationship Specialty Start Date End Date Elsewhere, Pcp PCP - General Family Medicine 07/29/17 [facility] - Laboratory Medicine 04/12/20 [place] [phone] documented as of this encounter
--- OUTSIDE RECORDS SUMMARY | 2022-05-17 18:27 | XMS_ITS | Encounter Summary ---
:1955 Author Organization [facility] Address [address] [place] [address] Care Team Providers Name Role Phone Elsewhere, Pcp Primary Care Provider Unavailable Reason for Visit Reason Comments Labs Only Encounter Details Date Type Department Care Team Description 10/18/2021 Clinical Communication Irena Gamez [facility] Labs Only Center for R, R.N. 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 - 10/18/2021 2:14 PM CDT Provider who reviewed results: Dr Umanzor Recommendations: increase mycophenolate back to 500 mg BID Labs are due: 1 week Patient Online Services message was initiated by a [facility] Registered Nurse for report of test [...] R.N. *All labs are now found in [employer] - Lab - Flowsheets. For further review of labs, please review there or under Synopsis* documented in 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 [address] [place] [phone] 05/23/2022 Clinical Admitting/Central Communication Scheduling 05/27/2022 Comprehensive Visit Orthopedic Surgery Markus Sams M.D., Ph.D. [address] [place] [phone] 05/29/2022 Office Visit Otorhinolaryngology Dex Matta APRN C.NDemetriusP., M.S.N. [address] [place] [phone] 05/29/2022 Office Visit Otorhinolaryngology Nadeem Maradiaga, PMaryanne., M.S. [address] [place] [phone] 05/31/2022 Appointment Radiology Guilherme Matt MPAS, Jennifer., M.S. [address] [place] [phone] 06/05/2022 Appointment Laboratory Medicine Angélica Granger P.A.-C. [address] [place] [phone] 06/19/2022 Appointment Laboratory Medicine Angélica Granger P.A.-C. [address] [place] [phone] 07/03/2022 Appointment Laboratory Medicine Angélica Granger P.A.-C. [address] [place] [phone] 07/17/2022 Appointment Laboratory Medicine Angélica Granger P.A.-C. [address] [place] [phone] 07/31/2022 Appointment Laboratory Medicine Angélica Granger P.A.-C. [address] [place] [phone] 08/14/2022 Appointment Laboratory Medicine Angélica Granger P.A.-C. [address] [place] [phone] 08/28/2022 Appointment Laboratory Medicine Angélica Granger P.A.-C. 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
--- OUTSIDE RECORDS SUMMARY | 2022-05-17 18:27 | XMS_ITS | Encounter Summary ---
:1955 Author Organization [facility] Address [address] [place] [address] Care Team Providers Name Role Phone Elsewhere, Pcp Primary Care Provider Unavailable Encounter Details Date Type Department Care Team Description 10/17/2021 Hospital Encounter Department of Trung Plasencia Liver (HCC); Laboratory Medicine Edmundo Stern, Medicati on Therapy Halfway Not Anticoagulant; in Jimmie Blake M.S. 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 Medication Therapy Domestic Maid Not Anticoagulant NIFEdipine XL (PROCARDIA Take 1 [...] Laboratory Medicine Angélica Granger P.A.-C. [address] [place] [phone] 05/23/2022 Clinical Admitting/Central Communication Scheduling 05/27/2022 Comprehensive Visit Orthopedic Surgery Markus Sams M.D., Ph.D. [address] [place] [phone] 05/29/2022 Office Visit Otorhinolaryngology Dex Matta APRN, C.N.P., M.S.N. [address] [place] [phone] 05/29/2022 Office Visit Otorhinolaryngology Nadeem Maradiaga P.A.-C., M.S. [address] [place] [address] [phone] 05/31/2022 Appointment Radiology Guilherme Matt MPAS, P.A.-C., M.S. [address] [place] [phone] 06/05/2022 Appointment Laboratory Medicine Angélica Granger P.A.-C. [address] [place] [phone] 06/19/2022 Appointment Laboratory Medicine Angélica Granger P.A.-C. [address] [place] [phone] 07/03/2022 Appointment Laboratory Medicine Angélica Granger P.A.-C. [address] [place] [phone] 07/17/2022 Appointment Laboratory Medicine Angélica Granger P.A.-C. [address] [place] [phone] 07/31/2022 Appointment Laboratory Medicine Angélica Granger P.A.-C. [address] [place] [phone] 08/14/2022 Appointment Laboratory Medicine Angélica Granger P.A.-C. [address] [place] [phone] 08/28/2022 Appointment Laboratory Medicine Angélica Granger P.A.-C. [address] [place] [phone] documented as of this encounter Procedures Procedure Name Priority Date/Time Associated Diagnosis Comme nts CMV DNA DETECT/QUANT, Routine 10/17/2021 8:38 Transplant Liver (HCC) Results for this P AM CDT Medication Therapy procedure are in Domestic Maid Not the results Anticoagulant section. Colitis Cytomegalovirus (HCC) TACROLIMUS LEVEL, B Routine 10/17/2021 8:38 Transplant L iver (HCC) Results for this AM CDT Medication Therapy procedure are in Domestic Maid Not the results Anticoagulant section. Colitis Cytomegalovirus (HCC) CBC WITHOUT Routine 10/17/2021 8:38 Transplant Liver (HCC) Results for this DIFFERENTIAL, B AM CDT Medication Therapy proced ure are in Domestic Maid Not the results Anticoagulant section. Colitis Cytomegalovirus (HCC) GLUCOSE, FASTING, S/P Routine 10/17/2021 8:38 Transplant Liver (HCC) Results for this AM CDT Medication Therapy procedure are in Halfway Not the results Anticoagulant section. Colitis Cytomegalovirus (HCC) COMPREHENSIVE Routine 10/17/2021 8:38 Transplant Liver (HCC) Results for this METABOLIC PANEL, S/P AM CDT Medication Therapy p rocedure are in Halfway Not the results Anticoagulant [...] Volume Laterality Blood (Blood, 10/17/2021 8:38 AM 04/28/20 22 7:11 Venous) CDT AM CDT Trung Plasencia P.A.-C. MDemetriusSDemetrius LAB BLOOD NON ADD-ON Performing Organization Address [facility] Phon e Number [address] MURILLO [place] [address] 05 [place] [address] Laboratory Medicine and Pathology [address] [place] [address] Dr. MURILLO (ABNORMAL) CMV DNA Detect / Quant, Plasma (10/17/2021 8:38 AM CDT) [facility] Method Time Signature CMV DNA 545 (A) Undetected 10/18/2021 [facility] Detect/Quant, IU/mL 2:26 AM CDT P Comment: Result in log IU/mL is 2.74. ----ADDITIONAL INFORMATION---- The quantification range of this assay i s 35 to 10,000,000 IU/mL (1.54 log to 7.00 log IU/mL). Testing was performed u sing the tika CMV test ([employer] with the tika [employer]World0 System. Specimen Anatomical Collection Method Collection Time Receive d Time (Source) Location / / Volume Laterality Blood (Blood, 10/17/2021 8:38 AM 10/18/19 22 8:21 Venous) CDT PM CDT Trung Plasencia P.A.-C. MDemetriusS. LAB MICROBIOLOGY - BLOOD O RDERABLES Performing Organization Address [facility] Phon e Number [address] MURILLO [place] [address] [address] [facility] [place] [address] Laboratory Medicine and Pathology [address] [place] [address] Dr. MURILLO (ABNORMAL) Glucose, Fasting (10/17/2021 8:38 [...] Phon e Number [facility]- [address] [place] [address] [place] [address] [place] [address] System in [place] [address] [address] (ABNORMAL) Comprehensive Metabolic Panel (10/17/2021 8:38 AM [...] eGFR-Black/Afri 18 (L) >=60 10/17/2021 [facility] can [place] mL/min/BSA 9:07 AM CDT Comment: ----ADDITIONAL INFORMATION---- Estimated GFR calculated using the 2009 CKD_EPI creatinine equation. eGFR Non-Black/ 15 (L) >=60 mL/min/BSA 10/17/2021 9:07 AM CDT [facility] [place] Comment: ----ADDITIONAL INFORMATION---- Estimated GFR calculated using [...] M.S. LAB BLOOD ADD-ON Performing Organization Address [facility] [[email or web address]] Code Phon e Number [address] [address] [place] [address] (ABNORMAL) CBC without Differential (10/17/2021 8:38 AM CDT) [facility] Method Time Signature Hemoglobin 8.9 (L) [...] Blood (Blood, 10/17/2021 8:38 AM 10/18/19 22 8:40 Venous) CDT AM CDT Trung Plasencia P.A.-C., M.S. LAB BLOOD ADD-ON Performing Organization Address City/State/[facility] [[email or web address]] Code Phon e Number [facility]- [address] [place] [phone] [place] [address] [place] [address] System in [address] documented in this encounter Visit Diagnoses Diagnosis Transplant Liver (HCC) Medication Therapy Halfway Not Anticoa gulant Colitis Cytomegalovirus (HCC) documented in this encounter Additional Health Concerns Assessment Noted Time PHQ-9 Depression Total Score: 4 11/28/2020 10:17 AM CD T documented as of this encounter Care Teams Event Designer Relationship Specialty Start Date End Date Elsewhere, Pcp PCP - General Family Medicine 07/29/17 [facility] - Laboratory Medicine 04/12/[address] [address] documented as of this encounter
--- OUTSIDE RECORDS SUMMARY | 2022-05-17 18:27 | XMS_ITS | Encounter Summary ---
:1955 Author Organization [facility] Address [address] [place] [address] Care Team Providers Name Role Phone Elsewhere, Pcp Primary Care Provider Unavailable Reason for Visit Reason Comments Blood Glucose Review and Insulin Dosing Encounter Details Date Type Department Care Team Description 10/23/2021 Clinical Communication Division of Zarina Cotto Blood Glucose Endocrinology in D, R.N. 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 documented in 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 [address] [place] [address] 05/23/2022 Clinical Admitting/Central Communication Scheduling 05/27/2022 Comprehensive Visit Orthopedic Surgery aMrkus Sams M.D., Ph.D. [address] [place] [phone] 05/29/2022 Office Visit Otorhinolaryngology Dex Matta APRN CDemetriusNDemetriusP., M.S.N. [address] [place] [phone] 05/29/2022 Office Visit Otorhinolaryngology Nadeem Maradiaga, Edmundo, M.S. [address] [place] [phone] 05/31/2022 Appointment Radiology Guilherme Matt, RASTA, Edmundo, M.S. [address] [place] [phone] 06/05/2022 Appointment Laboratory Medicine Angélica Granger P.A.-C. [address] [place] [phone] 06/19/2022 Appointment Laboratory Medicine Angélica Granger P.A.-C. [address] [place] [phone] 07/03/2022 Appointment Laboratory Medicine Angélica Granger P.A.-C. [address] [place] [phone] 07/17/2022 Appointment Laboratory Medicine Angélica Granger P.A.-C. [address] [place] [phone] 07/31/2022 Appointment Laboratory Medicine Angélica Granger P.A.-C. [address] [place] [phone] 08/14/2022 Appointment Laboratory Medicine Angélica Granger P.A.-C. [address] [place] [phone] 08/28/2022 Appointment Laboratory Medicine Angélica Granger P.A.-C. [address] [place] [phone] documented as of this encounter Visit Diagnoses Not on filedocumented in this encounter Additional Health Concerns Assessment Noted Time PHQ-9 Depression Total Score: 4 11/28/2020 10:17 AM CD T documented as of this encounter Care Teams Renewable Energy Technician Relationship Specialty Start Date End Date Elsewhere, Pcp PCP - General Family Medicine 07/29/17 [facility] - Laboratory Medicine 04/12/[address] [address] documented as of this encounter
--- OUTSIDE RECORDS SUMMARY | 2022-05-17 18:27 | XMS_ITS | Encounter Summary ---
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 - 10/19/2021 7:41 AM CDT INFORMATION DISCUSSED Telephone documentation: Follow up call Patient calls for blood sugar review and insulin dose adjustment. Blood glucose yesterday were [phone] mg/dL. This morning blood glucose is 137 mg/dL. Yesterday, patient took: NPH 14-0-0-0 units Steroids: Prednisone 20 mg po daily. PLAN I, recommended: No changes to insulin doses; NPH 14-0-0-0 units. Disposition/Recommendations: self care appropriate at this time. Education: patient/caller able to teach back. Caller agreeable to plan of care: Yes The following references were used: nursing clinical judgment and [facility] protocols documented in 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 [address] [place] [phone] 05/23/2022 Clinical Admitting/Central Communication Scheduling 05/27/2022 Comprehensive Visit Orthopedic Surgery Markus Sams M.D., Ph.D. [address] [place] [phone] 05/29/2022 Office Visit Otorhinolaryngology Dex Matta APRN, CDemetriusNFabrice., M.S.N. [address] [place] [phone] 05/29/2022 Office Visit Otorhinolaryngology Nadeem Maradiaga P.A.-C., M.S. [address] [place] [phone] 05/31/2022 Appointment Radiology Guilherme Matt MPAS, P.A.-C., M.S. [address] [place] [phone] 06/05/2022 Appointment Laboratory Medicine Angélica Granger P.A.-C. [address] [place] [phone] 06/19/2022 Appointment Laboratory Medicine Angélica Granger P.A.-C. [address] [place] [phone] 07/03/2022 Appointment Laboratory Medicine Angélica Granger P.A.-C. [address] [place] [phone] 07/17/2022 Appointment Laboratory Medicine Angélica Granger P.A.-C. [address] [place] [phone] 07/31/2022 Appointment Laboratory Medicine Angélica Granger P.A.-C. [address] [place] [phone] 08/14/2022 Appointment Laboratory Medicine Angélica Granger P.A.-C. [address] [place] [phone] 08/28/2022 Appointment Laboratory Medicine Angélica Granger P.A.-C. [address] [place] [phone] documented as of this encounter Visit Diagnoses Not on filedocumented in this encounter Additional Health Concerns Assessment Noted Time PHQ-9 Depression Total Score: 4 11/28/2020 10:17 AM CD T documented as of this encounter Care Teams Chief Operator Hydroformer Relationship Specialty Start Date End Date Elsewhere, Pcp PCP - General Family Medicine 07/29/17 [facility] - Laboratory Medicine 04/12/[address] [address] documented as of this encounter
--- OUTSIDE RECORDS SUMMARY | 2022-05-17 18:27 | XMS_ITS | Encounter Summary ---
:1955 Author Organization [facility] Address [address] [place] [address] Care Team Providers Name Role Phone Elsewhere, Pcp Primary Care Provider Unavailable Reason for Visit Reason Comments Blood Glucose Review and Insulin Dosing Encounter Details Date Type Department Care Team Description 10/18/2021 Clinical Communication Division of Zarina Cotto Blood Glucose Endocrinology in [place] 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 [address] [place] [phone] 05/23/2022 Clinical Admitting/Central Communication Scheduling 05/27/2022 Comprehensive Visit Orthopedic Surgery Markus Sams M.D., Ph.D. [address] [place] [phone] 05/29/2022 Office Visit Otorhinolaryngology Dex Matta APRN CDemetriusNFabrice., M.S.N. [address] [place] [phone] 05/29/2022 Office Visit Otorhinolaryngology Nadeem Maradiaga P.A.-C., M.S. [address] [place] [phone] 05/31/2022 Appointment Radiology Guilherme Matt MPAS, P.A.-C., M.S. [address] [place] [phone] 06/05/2022 Appointment Laboratory Medicine Angélica Granger P.A.-C. [address] [place] [phone] 06/19/2022 Appointment Laboratory Medicine Angélica Granger P.A.-C. [address] [place] [phone] 07/03/2022 Appointment Laboratory Medicine Angélica Granger P.A.-C. [address] [place] [phone] 07/17/2022 Appointment Laboratory Medicine Angélica Granger P.A.-C. [address] [place] [phone] 07/31/2022 Appointment Laboratory Medicine Angélica Granger P.A.-C. [address] [place] [phone] 08/14/2022 Appointment Laboratory Medicine Angélica Granger P.A.-C. [address] [place] [phone] 08/28/2022 Appointment Laboratory Medicine Angélica Granger P.A.-C. [address] [place] [phone] documented as of this encounter Visit Diagnoses Not on filedocumented in this encounter Additional Health Concerns Assessment Noted Time PHQ-9 Depression Total Score: 4 11/28/2020 10:17 AM CD T documented as of this encounter Care Teams Slitter And Cutter Operator Relationship Specialty Start Date End Date Elsewhere, Pcp PCP - General Family Medicine 07/29/17 [facility] - Laboratory Medicine 04/12/[address] [address] documented as of this encounter
--- OUTSIDE RECORDS SUMMARY | 2022-05-17 18:27 | XMS_ITS | Encounter Summary ---
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 [address] [place] [phone] 05/23/2022 Clinical Admitting/Central Communication Scheduling 05/27/2022 Comprehensive Visit Orthopedic Surgery Markus Sams M.D., Ph.D. [address] [place] [phone] 05/29/2022 Office Visit Otorhinolaryngology Dex Matta, RAMONA, C.NJuan Miguel, M.S.N. [address] [place] [phone] 05/29/2022 Office Visit Otorhinolaryngology Nadeem Maradiaga P.A.-C., M.S. [address] [place] [phone] 05/31/2022 Appointment Radiology Guilherme Matt MPAS, P.A.-C., M.S. [address] [place] [phone] 06/05/2022 Appointment Laboratory Medicine Angélica Granger P.A.-C. [address] [place] [phone] 06/19/2022 Appointment Laboratory Medicine Angélica Granger P.A.-C. [address] [place] [phone] 07/03/2022 Appointment Laboratory Medicine Angélica Granger P.A.-C. [address] [place] [phone] 07/17/2022 Appointment Laboratory Medicine Angélica Grangre P.A.-C. [address] [place] [phone] 07/31/2022 Appointment Laboratory Medicine Angélica Granger P.A.-C. [address] [place] [phone] 08/14/2022 Appointment Laboratory Medicine Angélica Granger P.A.-C. [address] [place] [phone] 08/28/2022 Appointment Laboratory Medicine Angélica Granger P.A.-C. [address] [place] [phone] documented as of this encounter Visit Diagnoses Not on filedocumented in this encounter Additional Health Concerns Assessment Noted Time PHQ-9 Depression Total Score: 4 11/28/2020 10:17 AM CD T documented as of this encounter Care Teams Chair Car Attendant Relationship Specialty Start Date End Date Elsewhere, Pcp PCP - General Family Medicine 07/29/17 [facility] - Laboratory Medicine 04/12/20 [place] [address] documented as of this encounter
--- OUTSIDE RECORDS SUMMARY | 2022-05-17 18:27 | XMS_ITS | Encounter Summary ---
:[address] 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 [address] [place] [phone] 05/23/2022 Clinical Admitting/Central Communication Scheduling 05/27/2022 Comprehensive Visit Orthopedic Surgery Markus Sams M.D., Ph.D. [address] [place] [phone] 05/29/2022 Office Visit Otorhinolaryngology Dex Matta APRN, C.N.P., M.S.N. [address] [place] [address] [phone] 05/29/2022 Office Visit Otorhinolaryngology Nadeem Maradiaga, P.A.-C., M.S. [address] [place] [phone] 05/31/2022 Appointment Radiology Guilherme Matt, RASTA, PEdgar.Marie., M.S. [address] [place] [phone] 06/05/2022 Appointment Laboratory Medicine Angélica Granger P.A.-C. [address] [place] [phone] 06/19/2022 Appointment Laboratory Medicine Angélica Granger P.A.-C. [address] [place] [address] [phone] 07/03/2022 Appointment Laboratory Medicine Angélica Granger P.A.-C. [address] [place] [phone] 07/17/2022 Appointment Laboratory Medicine Angélica Granger P.A.-C. [address] [place] [address] [phone] 07/31/2022 Appointment Laboratory Medicine Angélica Granger P.A.-C. [address] [place] [phone] 08/14/2022 Appointment Laboratory Medicine Angélica Granger P.A.-C. [address] [place] [phone] 08/28/2022 Appointment Laboratory Medicine Angélica Granger P.A.-C. [address] [place] [phone] documented as of this encounter Visit Diagnoses Diagnosis Pretransplant Recipient Evaluation Exam - Primary documented in this encounter Additional Health Concerns Assessment Noted Time PHQ-9 Depression Total Score: 4 11/28/2020 10:17 AM CD T documented as of this encounter Care Teams Product Engineering Manager Relationship Specialty Start Date End Date Elsewhere, Pcp PCP - General Family Medicine 07/29/17 [facility] - Laboratory Medicine 04/12/[address] [address] documented as of this encounter
--- OUTSIDE RECORDS SUMMARY | 2022-05-17 18:27 | XMS_ITS | Encounter Summary ---
:1955 Author Organization [facility] Address [address] [place] [address] Care Team Providers Name Role Phone Elsewhere, Pcp Primary Care Provider Unavailable Encounter Details Date Type Department Care Team Description 10/17/2021 Orders Only Division of Nephrology and Elissa Wilcox A PRN, Hypertension, Synagogue C.N.P. 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 [address] [place] [phone] 05/23/2022 Clinical Admitting/Central Communication Scheduling 05/27/2022 Comprehensive Visit Orthopedic Surgery Markus Sams M.D., Ph.D. [address] [place] [phone] 05/29/2022 Office Visit Otorhinolaryngology Dex Matta APRN, C.N.P., M.S.N. [address] [place] [phone] 05/29/2022 Office Visit Otorhinolaryngology Nadeem Maradiaga, P.Murtaza.-Arley., M.S. [address] [place] [address] [phone] 05/31/2022 Appointment Radiology Guilherme Matt MPAS, Jennifer., M.S. [address] [place] [phone] 06/05/2022 Appointment Laboratory Medicine Angélica Granger P.A.-C. [address] [place] [phone] 06/19/2022 Appointment Laboratory Medicine Angélica Granger P.A.-C. [address] [place] [phone] 07/03/2022 Appointment Laboratory Medicine Angélica Granger P.A.-C. [address] [place] [phone] 07/17/2022 Appointment Laboratory Medicine Angélica Granger P.A.-C. [address] [place] [phone] 07/31/2022 Appointment Laboratory Medicine Angélica Granger P.A.-C. [address] [place] [phone] 08/14/2022 Appointment Laboratory Medicine Angélica Granger P.A.-C. [address] [place] [phone] 08/28/2022 Appointment Laboratory Medicine Angélica Granger P.A.-C. [address] [place] [phone] documented as of this encounter Visit Diagnoses Not on filedocumented in this encounter Additional Health Concerns Assessment Noted Time PHQ-9 Depression Total Score: 4 11/28/2020 10:17 AM CD T documented as of this encounter Care Teams Bead Maker Relationship Specialty Start Date End Date Elsewhere, Pcp PCP - General Family Medicine 07/29/17 [facility] - Laboratory Medicine 04/12/[address] [address] documented as of this encounter
--- OUTSIDE RECORDS SUMMARY | 2022-05-17 18:27 | XMS_ITS | Encounter Summary ---
:1955 Author Organization [facility] Address [address] [place] [address] Care Team Providers Name Role Phone Elsewhere, Pcp Primary Care Provider Unavailable Reason for Visit Reason Comments Dose Adjustment Encounter Details Date Type Department Care Team Description 10/22/2021 Clinical Communication Division of Isra Dean Adjustment Endocrinology in A, R.N. 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 [address] [place] [phone] 05/23/2022 Clinical Admitting/Central Communication Scheduling 05/27/2022 Comprehensive Visit Orthopedic Surgery Markus Sams M.D., Ph.D. [address] [place] [phone] 05/29/2022 Office Visit Otorhinolaryngology Dex Matta APRN, C.N.P., M.S.N. [address] [place] [phone] 05/29/2022 Office Visit Otorhinolaryngology Nadeem Maradiaga P.A.-C., M.S. [address] [place] [phone] 05/31/2022 Appointment Radiology Guilherme Matt MPAS, P.A.-C., M.S. [address] [place] [phone] 06/05/2022 Appointment Laboratory Medicine Angélica Granger P.A.-C. [address] [place] [phone] 06/19/2022 Appointment Laboratory Medicine Angélica Granger P.A.-C. [address] [place] [phone] 07/03/2022 Appointment Laboratory Medicine Angélica Granger P.A.-C. [address] [place] [phone] 07/17/2022 Appointment Laboratory Medicine Angélica Granger P.A.-C. [address] [place] [address] [phone] 07/31/2022 Appointment Laboratory Medicine Angélica Granger P.A.-C. [address] [place] [phone] 08/14/2022 Appointment Laboratory Medicine Angélica Granger P.A.-C. [address] [place] [phone] 08/28/2022 Appointment Laboratory Medicine Angélica Granger P.A.-C. [address] [place] [phone] documented as of this encounter Visit Diagnoses Not on filedocumented in this encounter Additional Health Concerns Assessment Noted Time PHQ-9 Depression Total Score: 4 11/28/2020 10:17 AM CD T documented as of this encounter Care Teams Odd Ticket Clerk Relationship Specialty Start Date End Date Elsewhere, Pcp PCP - General Family Medicine 07/29/17 [facility] - Laboratory Medicine 04/12/[address] [address] documented as of this encounter
--- OUTSIDE RECORDS SUMMARY | 2022-05-17 18:27 | XMS_ITS | Encounter Summary ---
:1955 Author Organization [facility] Address [address] [place] [address] Care Team Providers Name Role Phone Elsewhere, Pcp Primary Care Provider Unavailable Reason for Referral MRI/CAT/PET Scan (Routine) - Closed Specialty Diagnoses / Procedures Referred By Contact Refer red To Contact Radiology Diagnoses Transplant Liver (HCC) Medication Therapy Mcc Not Anticoagulant Shortness Of Breath Yusuf Umanzor M.D., [facility] Procedures CT Chest without IV Contrast [facility] [address] [place] [address] Referral ID Status Reason Start Date Expiration Date Visits Requ ested Visits Authorized [id number] Closed 10/17/2021 10/17/2022 1 1 Encounter Details Date Type Department Care Team Description 10/17/2021 Orders Only Yolie Gamez Trans plant Liver (HCC) (Primary Dx); [facility] Transplantation R, R. N. 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 [address] [place] [phone] 05/23/2022 Clinical Admitting/Central Communication Scheduling 05/27/2022 Comprehensive Visit Orthopedic Surgery Markus Sams M.D., Ph.D. [address] [place] [phone] 05/29/2022 Office Visit Otorhinolaryngology Dex Matta APRN CDebbie., M.S.N. [address] [place] [phone] 05/29/2022 Office Visit Otorhinolaryngology Nadeem Maradiaga P.A.-C., M.S. [address] [place] [phone] 05/31/2022 Appointment Radiology Guilherme Matt MPAS, P.A.-C., M.S. [address] [place] [phone] 06/05/2022 Appointment Laboratory Medicine Angélica Granger P.A.-C. [address] [place] [phone] 06/19/2022 Appointment Laboratory Medicine Angélica Granger P.A.-C. [address] [place] [phone] 07/03/2022 Appointment Laboratory Medicine Angélica Granger P.A.-C. [address] [place] [phone] 07/17/2022 Appointment Laboratory Medicine Angélica Granger P.A.-C. [address] [place] [phone] 07/31/2022 Appointment Laboratory Medicine Angélica Granger P.A.-C. [address] [place] [phone] 08/14/2022 Appointment Laboratory Medicine Angélica Granger P.A.-C. [address] [place] [address] [phone] 08/28/2022 Appointment Laboratory Medicine Angélica Granger P.A.-C. [address] [place] [phone] documented as of this encounter Results CT [...] cm in AP dimension, relatively unchanged since e prior exam allowing for minor differences [...] cm in AP dimension, relatively unchanged since e prior exam allowing for minor differences [...] Primary Medication Therapy Mcc Not Anticoa gulant Shortness Of Breath Transplant Liver (HCC) Medication Therapy Mcc Not Anticoa gulant Shortness Of Breath documented in this encounter Additional Health Concerns Assessment Noted Time PHQ-9 Depression Total Score: 4 11/28/2020 10:17 AM CD T documented as of this encounter Care Teams Cupola Melter Helper Relationship Specialty Start Date End Date Elsewhere, Pcp PCP - General Family Medicine 07/29/17 [facility] - Laboratory Medicine 04/12/[address] [address] documented as of this encounter
--- OUTSIDE RECORDS SUMMARY | 2022-05-17 18:27 | XMS_ITS | Encounter Summary ---
:1955 Author Organization [facility] Address [address] [place] [address] Care Team Providers Name Role Phone Elsewhere, Pcp Primary Care Provider Unavailable Reason for Visit Reason Comments Med Refill Encounter Details Date Type Department Care Team Description 10/20/2021 Refill [facility] for Yusuf Gutierrez, Med Refill Transplantation and Clinical M.D ., M.P.H. 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 [address] [place] [phone] 05/23/2022 Clinical Admitting/Central Communication Scheduling 05/27/2022 Comprehensive Visit Orthopedic Surgery Markus Sams M.D., Ph.D. [address] [place] [phone] 05/29/2022 Office Visit Otorhinolaryngology Dex Matta, RAMONA, C.N.P., M.S.N. [address] [place] [phone] 05/29/2022 Office Visit Otorhinolaryngology Nadeem Maradiaga, P.Murtaza.-Arley., M.S. [address] [place] [phone] 05/31/2022 Appointment Radiology Guilherme Matt MPAS, PMaryanne., M.S. [address] [place] [phone] 06/05/2022 Appointment Laboratory Medicine Angélica Granger P.A.-C. [address] [place] [address] [phone] 06/19/2022 Appointment Laboratory Medicine Angélica Granger P.A.-C. [address] [place] [phone] 07/03/2022 Appointment Laboratory Medicine Angélica Granger P.A.-C. [address] [place] [phone] 07/17/2022 Appointment Laboratory Medicine Angélica Granger P.A.-C. [address] [place] [phone] 07/31/2022 Appointment Laboratory Medicine Angélica Granger P.A.-C. [address] [place] [phone] 08/14/2022 Appointment Laboratory Medicine Angélica Granger P.A.-C. [address] [place] [phone] 08/28/2022 Appointment Laboratory Medicine Angélica Granger P.A.-C. 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
--- OUTSIDE RECORDS SUMMARY | 2022-05-17 18:27 | XMS_ITS | Encounter Summary ---
:1955 Author Organization [facility] Address [address] [place] [address] Care Team Providers Name Role Phone Elsewhere, Pcp Primary Care Provider Unavailable Reason for Visit Reason Comments Med Refill Encounter Details Date Type Department Care Team Description 10/[facility] Fel[facility] Med Refill Transplantation and Jenni Leyva M.D. 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 [address] [place] [phone] 05/23/2022 Clinical Admitting/Central Communication Scheduling 05/27/2022 Comprehensive Visit Orthopedic Surgery Markus Sams M.D., Ph.D. [address] [place] [address] [phone] 05/29/2022 Office Visit Otorhinolaryngology Dex Matta, RAMONA, C.N.P., M.S.N. [address] [place] [phone] 05/29/2022 Office Visit Otorhinolaryngology Nadeem Maradiaga, P.Murtaza.-Arley., M.S. [address] [place] [phone] 05/31/2022 Appointment Radiology Guilherme Matt MPAS, PMaryanne., M.S. [address] [place] [address] [phone] 06/05/2022 Appointment Laboratory Medicine Angélica Granger P.A.-C. [address] [place] [address] [phone] 06/19/2022 Appointment Laboratory Medicine Angéliac Granger P.A.-C. [address] [place] [phone] 07/03/2022 Appointment Laboratory Medicine Angélica Granger P.A.-C. [address] [place] [phone] 07/17/2022 Appointment Laboratory Medicine Angélica Granger P.A.-C. [address] [place] [phone] 07/31/2022 Appointment Laboratory Medicine Angélica Granger P.A.-C. [address] [place] [phone] 08/14/2022 Appointment Laboratory Medicine Angélica Granger P.A.-C. [address] [place] [phone] 08/28/2022 Appointment Laboratory Medicine Angélica Granger P.A.-C. 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 - Laboratory Medicine 04/12/20 [place] [address] documented as of this encounter
--- OUTSIDE RECORDS SUMMARY | 2022-05-17 18:28 | XMS_ITS | Encounter Summary ---
:1955 Author Organization [facility] Address [address] [place] [address] Care Team Providers Name Role Phone Elsewhere, Pcp Primary Care Provider Unavailable Reason for Visit Reason Comments Cough Shortness of Breath Encounter Details Date Type Department Care Team Description 10/12/2021 - [facility] Nick Frias M .D. [address] [place] [phone] Pneumonia (Primary Dx); [facility] [address] [place] [phone] Hyperglycemia; [facility], Julian Sanchez M.D. [address] [place] [address] [phone] Immunodeficiency Due To Drugs (HCC); Meghann Bowman M.D., Ph.D. [address] [place] [address] [phone] Transplant Liver (HCC); Glenn Vera Stephanie S, APRN, C.N.P. 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 Primary Team: [facility] Medicine 5 ([facility]) Primary Care Providers: Elsewhere, Pcp (General) [...] for the Diabetes Nurse Educator at pager [phone] during the day between 7:30 am- 3:30 [...] Singh is a 66 y.o. male from [place], [place] with medical co-morbidities significant for ESRD [...] lives alone in his own home in [place], [place]. He ambulates independently; he occasionally uses a walker at home. He reports he fell off a ladder earlier last year but otherwise denies any falls in the last year. He performs his own ADLs. 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 He denies any alcohol, drug or tobacco usage. Mr. Singh is and has been followed by multiple teams here at [facility] including Liver Transplant, Kidney/Pancreas Transplant, Nephrology (dialysis), [...] to go to the emergency department at [facility] for further evaluation and management. In the [facility] ED, he was afebrile, heart rate was [...] CONSULT TO INFECTIOUS DISEASES IP CONSULT TO CERAMIC TILE MECHANIC CONDITION AT DISCHARGE improved Discharge instructions were provided to the patient and caregiver(s). documented in this encounter Discharge Instructions Discharge InstructionsChari Hoang - 10/15/2021 8:45 AM CDT You were discharged from the [facility] Medicine 5 ([facility]) Service. Please identify this service name if you call with questions after hospitalization. Patient InstructionsMercedes Yip M.S., CCC-SOLE SEAMER - 10/15/2021 4:07 PM CDT SPEECH-LANGUAGE PATHOLOGY [...] provided on 10/15/2021 by Mercedes Yip M.S., CCC-SOLE SEAMER Contact information: [facility], Department of Neurology, AttachmentsThe following attachments cannot be sent through Care Everywhere. Fluticasone (Into the nose) (British)documented in this encounter Medications at Time of [...] TWO TIMES A DAY FOR 10 DAYS vancomycin (VANCOCIN) TAKE 1 CAPSULE BY 34 [...] or open Cytomegalovirus (HCC), capsules. Medication Therapy Crozer Operator Not Anticoagulant NIFEdipine XL (PROCARDIA Take 1 [...] each daily. 180 each 3 10/16/2021 12/10/2021 NIFEdipine XL (PROCARDIA Take 60 mg by mouth 0 04/29/2022 XL) 30 mg 24 hr tablet daily. pen needle, diabetic 1 Injection daily. 90 each 0 022 12/10/2021 (Novofine 32) 32 gauge x 1/4 needle documented as of this encounter Progress Notes Elissa Wilcox, CORN SHELLER OPERATOR, C.N.P. - 10/16/2021 1:26 PM CDT SUBJECTIVE [...] fistula has been working well. Nursing in [facility] is comfortable withthe dialysis catheter [...] ?Plan was reviewed with his inpatient nephrology professional employer consultant Dr. Coker. Thank you for the opportunity to participate in??'s care. For questions or concerns, please page the??Neph A ESRD pager at [phone] Rachelle Maldonado RDN, [place] - 10/16/2021 10:09 AM CDT Asked [...] Registered Dietitian can be reached at pager: [phone] Chelsy Rojas M.D., M.P.H. - 10/16/2021 8:04 AM CDT Diabetes Consulting Service Progress Note SUBJECTIVE LOS: 4 days DCS continues to follow this 66 y.o. year-old male for steroid-induced hyperglycemia admitted on 10/12/2021 Had symptoms of hypoglycemia overnight and into this snowsport instructor, with some resolution of symptomsafter eating a [...] hospital dismissal for final dismissal recommendations. Bruce Chanelsen's case and plan of care was discussed with Dr.Pankaj Palacio. Please see supervisorynote for further details. For questions, please utilize the DCS Resident service pager [phone]. Chelsy Rojas, PGY-1 Internal Medicine [phone] Associated attestation - Sachin Palacio M.D. - [...] sputum ID will sign off. Please page [phone] with questions. Discussed with Dr. Tello. Carlos Reese D.O., Pager [phone] Transplant Infectious Diseases Fellow TRANSPLANT INFECTIOUS DISEASES [...] for assistance. Please fax the results to [phone] (liver). Infectious Diseases 1. PICC/Therapy: PICC/Therapy: Not applicable. Follow up indicated: Followup to be organized by Transplant Infectious Diseases for a follow-up visit the week of 11/12/2021 Carlos Reese D.O., Pager [phone] Transplant Infectious Diseases Fellow Associated attestation - [...] M.D., Ph.D. - 10/15/2021 9:44 PM CDT [facility] 5 ([facility]) Progress Note SUBJECTIVE The patient was [...] / PLAN Mr. Singh is hospitalized on [place] [address] ([facility]) for evaluation and management of Pneumonia. [...] met): Labs and Tests/procedures/consults Counseling was provided [id number] at bedside regarding the plan of care as stated above. I personally spent over half of a total 35 minutes in counseling and coordination of care as documented above. Mercedes Yip M.S., KARYN-SOLE SEAMER - 10/15/2021 4:04 PM CDT Both patient and nurse confirm that patient is tolerating current regular diet and thin liquids withno concerns for s/s of aspiration. Patient continues to complain of baseline cough but this is not exacerbated with oral intake. Reviewed general safe swallowing strategies. SOLE SEAMER will sign off at this time. Please reconsult if new concerns arise. (No charge submitted) Mercy Wise I., R.N. - 10/15/2021 2:26 PM CDT REASON [...] your blood sugar BID. Diabetes Overview, given. (HQ3822-41) Glucometer: Proper use and techniques, VOD Hypoglycemia: parameters, symptoms, and treatment, given. ([id number]) Injection site rotation per (DF3970-10) Insulin storage Guidelines [facility] Division of Endocrinology : Insulin Storage/Expiration information, handout given. Monitoring your Blood Glucose: Do not eat or drink any foods with calories/CHO for 4 hours before checking your blood sugar. You can drink water, diet soda, coffee or tea without added calories, per (RN3777-31) Using Insulin Pens, Verbalized proper use, and VOD, given. (AB6688-46) Medication: Insulin, given, per ( 0499-05) Insulin Types: NPH: Insulin onset, peak, and duration per (TV2474-58) Insulin Programs: NPH: when to check blood sugars before breakfast and evening meal. Take your insulin per your AVS, per (YK9940-95) Record book, done, given. Call in information [...] please utilize the DCS Resident service pager [phone]. Chelsy Rojas, PGY-1 Internal Medicine [phone] Associated attestation - Sachin Palacio M.D. - 10/15/2021 6:14 PM CDT I saw and evaluated the patient, participating in the garcia portions of the service. I reviewed Dr. Ta??s note. I agree with Dr. Ta??s findings and plan, including considering reducing the [...] We will continue to follow. Please page [phone] with questions. Discussed with Dr. Tello. Carlos Reese D.O., Pager [phone] Transplant Infectious Diseases Fellow Associated attestation - [...] continue to follow. Damian Tello M.D. Anthony Cordero, R.R.Monserrat., L.R.T. - 10/15/2021 9:49 AM CDT COPD RT visit not conducted. Patient is at Dialysis. RT Will attempt to see again. Elissa Wilcox APRN, C.N.P. - 10/15/2021 9:35 AM CDT SUBJECTIVE Mr. Singh was seen and examined while receving intermittent hemodialysis in [facility].He states his dyspnea is getting slightly [...] Intake/Output Summary (Last 24 hours) at 10/15/2021 0935 Last data filed at 10/15/2021 0909 Gross [...] fistula has been working well. Nursing in [facility] is comfortable withthe dialysis catheter [...] ?Plan was reviewed with his inpatient nephrology professional employer consultant Dr. Coker. Thank you for the opportunity to participate in??'s care. For questions or concerns, please page the??Neph A ESRD pager at [phone] Carla Burrows APRN, C.N.P., M.S.N. - 10/14/2021 [...] from last 7 days Lab Units 10/14/21 0447 10/13/21 0519 HEMOGLOBIN g/dL 7.9* 8.0* WBC x10(9)/L 4.4 4.4 PLATELETS AUTO x10(9)/L 178 166 Last 2 results Lab Units 10/14/21 0447 10/13/21 0519 10/12/21 1612 10/12/21 1451 SODIUM P mmol/L -- -- -- 124* POC SODIUM -- -- < > -- SODIUM mmol/L 127* 128* -- -- POTASSIUM P mmol/L -- -- -- 4.7 POTASSIUM mmol/L 4.0 3.8 -- -- POC HCO3 VENOUS -- -- < > -- BICARBONATE PLASMA mmol/L -- -- -- 19* BICARBONATE S mmol/L 19* 22 -- -- BUN P mg/dL -- [...] page the Neph A ESRD pager at [phone]. ?? Associated attestation - Florence Wren M.D., Ph.D. - 10/14/2021 3:11 PM CDT I was the supervising physician in the delivery of the service. Julian Sanchez M.D. - 10/14/2021 11:13 AM CDT [facility] Medicine 5 ([facility]) Progress Note SUBJECTIVE Interval History Per [...] swallow study given chronic aspiration. 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 I personally spent over half of a total 30 minutes in counseling and coordination of care as documented above. Julian Sanchez M.D.; Pager: [phone] Harleen Snatamaria M.D. - 10/14/2021 11:03 AM CDT The [...] please utilize the DCS Resident service pager [phone]. Chelsy Rojas, PGY-1 Internal Medicine [phone] Associated attestation - Kemal San M.D., M.S. [...] 10/13/2021 5:00 PM CDT T Medicine 5 ([facility]) Progress Note SUBJECTIVE Interval History Per [...] (not yet met): Tests/procedures/consults Counseling was provided seme-jq-kzje at bedside regarding the plan of care as stated above. I personally spent over half of a total 30 minutes in counseling and coordination of care as documented above. Julian Sanchez M.D.; Pager: [phone] Nadeem Smith, Pharm.D., R.Ph. - 10/13/2021 3:09 [...] List Status: Pharmacy Complete Set By: Nadeem Smith, D., R.Ph. at 10/13/2021 3:06 PM Taking? Last [...] dialysis Notes: Patient requests 90 days supply Dorene Smith PharmD, [facility] Pager [phone] Khushi Awan R.R.T., Jolly.R.T. - 10/13/2021 2:02 PM CDT Induced sputum ordered but patient was able to bring up a sample on his own, sample sent to lab. Electronically signed by: Khushi Awan R.R.T., L.R.T. 10/13/21 2:02 PM CDT Julian Sanchez M.D. [...] Recommend to obtain a respiratory pathogen panel RESIDENTIAL REAL ESTATE AGENT PCR ?? Recommend to obtain sputum for [...] APRN, C.N.P. - 10/12/2021 5:06 PM CDT [facility] Medicine 5 ([facility]) Admission Note SUBJECTIVE CHIEF COMPLAINT Cough and shortness of breath HISTORY OF PRESENT ILLNESS History obtained from review of EMR, handoff from ED and discussion with patient on admission. Mr. Bruce Singh is a 66 y.o. male from [place], [place] with PMH/medical co- morbidities significant for [...] lives alone in his own home in [place], [place]. He ambulates independently; he occasionally uses a walker at home. He reports he fell off a ladder earlier last year but otherwise denies any falls in the last year. He performs his own ADLs. 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 He denies any alcohol, drug or tobacco usage. Mr. Singh is and has been followed by multiple teams here at [facility] including Liver Transplant, Kidney/Pancreas Transplant, Nephrology (dialysis), [...] to go to the emergency department at [facility] for further evaluation and management. In the [facility] ED, he was afebrile, heart rate was [...] Able to move all extremities around independently. Swager Operator strength strong and equal bilaterally. Neurologic: Cranial nerves 2-12 grossly intact. Mental: Alert and oriented x4. Answers questions and converses appropriately. DIAGNOSTICS I have independently reviewed labs, imaging and EKG as noted per HPI. ASSESSMENT / PLAN Mr. Bruce Singh is a 66 y.o. male from [place], [place] with PMH/medical co- morbidities significant for [...] (HCC) Follows with Liver Transplant here at [facility]. Tacrolimus level last checked on 10/10 (low [...] care was discussed with Dr. Gloria, HIM professional employer consultant. Counseling was provided twhu-zp-mavq at bedside regarding the plan of care as stated above. I personally spent over half of a total 80 minutes in counseling and coordination of care as documented above. documented in this encounter Consult Notes Cheryl Jacobo M.A., [facility]-SOLE SEAMER - 10/14/2021 3:16 PM CDT Speech Language Pathology Dysphagia Evaluation- Acute Care Session Type: Evaluation Length of session: 10 minutes Time of Dysphagia Session: 1516 SUBJECTIVE Referred By: [facility] Medicine 5 ([facility]) History: Per EHR, patient is a 66 y.o. male from [place], [place] with PMH/medical co- morbidities significant for [...] Articulation: Within Normal Limits (WNL) Intelligibility: Intelligible SOLE SEAMER Clinical Dysphagia Data: Thin Presentation: Cup, Self [...] small bites/sips one at a time 5. SOLE SEAMER will continue to follow. Please page [phone] with questions. SOLE SEAMER Ongoing Services: Ongoing formal Speech Pathology services [...] [facility]. On presentation, glucose was 435, beta [...] injection 5,000 Units 5,000 Units subcutaneous Q8H [facility] Nelli Gloria APRN, C.N.P. 5,000 Units at 10/13/21 1425 ??? insulin aspart U-100 injection 0-13 Units (NovoLOG FlexPen) 0-13 Units subcutaneous TID Juan Jose Petersen M.B.B.SDemetrius 6 Units at 10/13/21 1219 ??? insulin NPH injection 14 Units 14 Units subcutaneous QAM Julian Sanchez M.D. 14 Units at 10/13/21 0838 ??? ipratropium-albuteroL 0.5-2.5 mg/3 mL nebulizer solution 3 mL (DUONEB) 3 mL nebulization Q6H PRNelli Miles APRN, C.N.P. ??? ipratropium-albuteroL 0.5-2.5 mg/3 mL nebulizer solution 3 mL (DUONEB) 3 mL nebulization Q6H Nelli Sanford APRN, C.N.P. 3 mL at 10/13/21 1424 ??? KaylaSDemetriustherm tablet 1 tablet (BACID) 1 tablet oral [...] APRN, C.N.P. 10 mg at 10/12/212153 ??? montelukast tablet 10 mg (SINGULAIR) 10 mg oral Daily at bedtime Nelli Gloria APRN, C.N.P. 10 mg at 10/12/212153 ??? multivitamin renal failure 100-1 mg 1 tablet (DIALYVITE) 1 tablet oral Daily with dinner Nelli Gloria APRN, C.N.P. ??? multivitamin renal failure 100-1 mg [...] <60 or >300. Hospital staff may page [phone] during the day with questions. After 6:30 pm please page the primary service. The DCS fellow is available for questions from the primary service overnight through the hospital squirt machine operator. Bruce Singh's case and plan of care was discussed with Dr.Jad San. Please see supervisory note for further details. Chelsy Rojas, PGY-1 Internal Medicine [phone] Associated attestation - Kemal San M.D., M.S. [...] will also have him meet with our early childhood educator aide as we expect he will require insulin [...] on Friday, Friday, Friday schedule at [facility]. He is dialyzed with the [...] Complications Post-Hemodialysis Comments stable treatment I/O 10/11 P.O. 440 Intermittent Medications 50 Total Intake(mL/kg) [...] page the Neph A ESRD pager at [phone]. Associated attestation - Florence Wren M.D., Ph.D. - 10/13/2021 7:39 PM CDT I was the supervising physician in the delivery of the service. I met the patient interviewed examined him in his room this morning. He is hospitalized with fever in the setting of chronic immunosuppression following liver transplant and has end-stage renal disease and receives dialysis at [facility] ialysis Unit. I reviewed his [...] infection. HISTORY OF PRESENT ILLNESS Mr. Bruce Singh is a 66 y.o. [...] mg BID 3. Obtain tacro trough level Friday10.15.2021 4. Prednisone dosing per primary team This patient was staffed with Dr. Willis Mcdermott, with the recommendations discussed with the primary team. Thank you for involving us in the care of this patient. We will continue to follow along. Please page the GI Hepatobiliary consult pager at [phone] with any questions or concerns. Carlos Reese [...] doxycycline. The team reached out to ID financial economist, who recommended CT of the chest, respiratory pathogen panel, PCP smear, empiric escalation to cefepime. Upon interview, patient reports worsening productive cough for the last 7-10 days, prompting him to increased prednisone 60 mg for 3 days prior to being advised by his fishing accessories maker to decrease the dosing and continue a [...] ID will continue to follow. Please page [phone] with questions. Carlos Reese D.O., Pager [phone] Transplant Infectious Diseases Fellow Associated attestation - Harleen Santamaria M.D. - 10/13/2021 12:58 PM CDT I saw and evaluated the patient, participating in the garcia portions of the service. I reviewed Dr. Reese's note. I agree with his findings and plan. Mr. Samantha is s/p liver re-tx in 2012 (for [...] insulin and glucose testing. Pt transporting to [facility] [place] [place] via a friend. Transport ordered. Problem: PAIN - ADULT Goal: PT VERBALIZES/DEMONSTRATES ADEQUATE COMFORT LEVEL OR BASELINE 10/16/2021 1734 by Chastity Nichols, R.N. Outcome: Adequate for Discharge 10/16/2021 1733 by Chastity Nichols, R.N. Outcome: Adequate for Discharge Problem: KNOWLEDGE DEFICIT Goal: Patient/family/caregiver demonstrates understanding of disease process, treatment plan, medications, and discharge instructions 10/16/2021 1734 by Chastity Nichols, R.N. Outcome: Adequate for Discharge 10/16/2021 173 by Chastity Nichols, R.N. Outcome: Adequate for Discharge Problem: INFECTION - ADULT Goal: Absence of infection during hospitalization 10/16/2021 1734 by Chastity Nichols, R.N. Outcome: Adequate for Discharge 10/16/2021 1733 by Chastity Nichols, R.N. Outcome: Adequate for Discharge Problem: SKIN/TISSUE INTEGRITY Goal: Skin/Tissue integrity maintained or improved 10/16/2021 173 by Chastity Nichols, R.N. Outcome: Adequate for Discharge 10/16/2021 173 by Chastity Nichols, R.N. Outcome: Adequate for Discharge Goal: Oral and Nasal mucous membranes remain intact 10/16/2021 1734 by Chastity Nichols, R.N. Outcome: Adequate for Discharge 10/16/2021 1733 by Chastity Nichols, R.N. Outcome: Adequate for Discharge Problem: SAFETY ADULT Goal: Maintain a safe environment 10/16/2021 173 by Chastity Nichols, R.N. Outcome: Adequate for Discharge 10/16/2021 173 by Chastity Nichols, R.N. Outcome: Adequate for Discharge Problem: DISCHARGE PLANNING Goal: Patient discharge needs identified 10/16/2021 173 by Chastity Nichols, R.N. Outcome: Adequate for Discharge 10/16/2021 1733 by Chastity Nichols, R.NDemetrius Outcome: Adequate for Discharge Problem: SAFETY ADULT - RISK FOR FALL AND OR FALL INJURY Goal: Patient remains free from fall/fall injury 10/16/2021 1734 by Chastity Nichols RDemetriusNDemetrius Outcome: Adequate for Discharge 10/16/2021 1733 by Chastity Nichols RDemetriusN. Outcome: Adequate for Discharge Problem: RESPIRATORY - ADULT Goal: Achieves optimal ventilation and oxygenation 10/16/2021 1734 by Chastity Nichols RDemetriusN. Outcome: Adequate for Discharge 10/16/2021 1733 by Chastity Nichols RDemetriusN. Outcome: Adequate for Discharge Problem: METABOLIC/FLUID AND ELECTROLYTES - ADULT Goal: Glucose maintained within prescribed range 10/16/2021 173 by Chastity Nichols RDemetriusN. Outcome: Adequate for Discharge 10/16/2021 1733 by [...] 6+ hours overnight. Denies pain. Chastity Nichols R.N. - 10/15/2021 11:33 AM CDT Shift Goals: [...] 2u aspart per order. Mary Lou Mahajan RDemetriusN. - 10/15/2021 5:02 AM CDT Shift Goals: [...] range Outcome: Progressing Note: RMG 157 @bedtime. Liana Horn R.N. - 10/14/2021 3:39 PM CDT Problem: [...] is very good at communicating needs. VSS Mary Lou Mahajan R.N. - 10/14/2021 6:13 AM CDT Shift Goals: [...] orders, blood sugars improved to 261 @0130 Shawn Riley R.N. - 10/13/2021 3:19 PM CDT Problem: PAIN [...] PM CDT Care of patient transferred to nm by Dr. Frias. Disposition pending Workup for [...] ED Course. Case reviewed with other health caretaker grounds, including Admitting Provider. ED Course as of [...] P(!): 124 Final Diagnoses: as of 10/12/21 1707 Pneumonia Hyperglycemia Immunodeficiency Due To Drugs (HCC) [...] determine (explain) Clinical Indicators/Risk Factors/Treatment: ED PN ([facility]): 66-year-old gentleman with a history of cryptogenic [...] questions. Thank you, DILMA Alfredo Clinical Documentation Media Job Titles Query created by: DILMA Alfredo 10/18/2021 06:25 [...] (explain) Clinical Indicators/Risk Factors/Treatment: Infectious Disease PN ([facility]) 10/16/21: a 66-year-old male with history of [...] questions. Thank you, DILMA Alfredo Clinical Documentation Media Job Titles Query created by: DILMA Alfredo 10/18/2021 06:43 AM CDT </LCI> Hospital Course - Meghann Ansari M.D., Ph.D. - 10/14/2021 12:49 PM CDT Mr. Singh is a 66 y.o. male from [place] with medical co-morbidities significant for ESRD [...] lives alone in his own home in [place], [place]. He ambulates independently; he occasionally uses a walker at home. He reports he fell off a ladder earlier last year but otherwise denies any falls in the last year. He performs his own ADLs. 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 He denies any alcohol, drug or tobacco usage. Mr. Singh is and has been followed by multiple teams here at [facility] including Liver Transplant, Kidney/Pancreas Transplant, Nephrology (dialysis), [...] to go to the emergency department at [facility] for further evaluation and management. In the [facility] ED, he was afebrile, heart rate was [...] Care Team Description 05/22/2022 Appointment Laboratory Medicine Scott Granger P.A.-C. [address] [place] [phone] 05/23/2022 Clinical Admitting/Central Communication Scheduling 05/27/2022 Comprehensive Visit Orthopedic Surgery Markus Sams M.D., Ph.D. [address] [place] [phone] 05/29/2022 Office Visit Otorhinolaryngology Dex Matta APRN, C.N.P., M.S.N. [address] [place] [phone] 05/29/2022 Office Visit Otorhinolaryngology Nadeem Maradiaga, P.A.-C., M.S. [address] [place] [address] [phone] 05/31/2022 Appointment Radiology Guilherme Matt MPAS, P.Murtaza.Marie., M.S. [address] [place] [phone] 06/05/2022 Appointment Laboratory Medicine Scott Granger P.A.-C. [address] [place] [phone] 06/19/2022 Appointment Laboratory Medicine Scott Granger P.A.-C. [address] [place] [phone] 07/03/2022 Appointment Laboratory Medicine Scott Granger P.A.-C. [address] [place] [phone] 07/17/2022 Appointment Laboratory Medicine Scott Granger P.A.-C. [address] [place] [place] [address] [phone] 07/31/2022 Appointment Laboratory Medicine Scott Granger P.A.-C. [address] [place] [phone] 08/14/2022 Appointment Laboratory Medicine Scott Granger P.A.-C. [address] [place] [address] [phone] 08/28/2022 Appointment Laboratory Medicine Scott Granger P.A.-C. [address] [place] [address] [phone] documented as of this encounter Procedures Procedure [...] are in the results section. (1, 3) [id number] Routine 10/13/2021 6:26 Resu lts for (FUNGITELL), [...] Routine 10/12/2021 10:37 Resul ts for PCR, RESIDENTIAL REAL ESTATE AGENT PM CDT this procedure are in the [...] Address City/State/ZIP Code Phon e Number POC [facility] [address] [place] [address] PCLX [facility] [place] [address] [place] [address] IR Dialysis [...] jugular vein tunneled dialysis catheter placement on 1 for hemodialysis access. He now has a [...] (10/16/2021 5:54 AM CDT) Analysis Performed At Patho logist Time Signature Glucose, POCT, 99 70 - 140 10/16/2021 [facility] B mg/dL 5:56 AM CDT Site Capillary 10/16/2021 [facility] 5:56 AM CDT Specimen Anatomical Collection Method Collection Time Receive d Time (Source) Location / / Volume Laterality Blood 10/16/2021 5:54 AM 2 5:56 CDT AM CDT Unknown Provider LAB POCT ORDERABLES-MANUAL Performing Organization Address City/[facility] Phon e Number POC [facility] [address] [place] [address] [place] [address] [place] [address] Glucose, POCT (10/16/2021 4:25 AM CDT) Analysis Performed At Path logis Time Signature Glucose, POCT, 102 70 - 140 10/16/2021 [facility] B mg/dL 4:27 AM CDT Site Capillary 10/16/2021 [facility] 4:27 AM CDT Last Intake > 4 hours 10/16/2021 [facility] 4:27 AM CDT Specimen Anatomical Collection Method Collection Time Receive d Time (Source) Location / / Volume Laterality Blood 10/16/2021 4:25 AM 2 4:28 CDT AM CDT Unknown Provider LAB POCT ORDERABLES-MANUAL Performing Organization Address City/[facility] Phon e Number POC [facility] [address] [place] [address] [place] [address] [place] [address] Glucose, POCT (10/16/2021 2:12 AM CDT) Analysis Performed At Patho logist Time Signature Glucose, POCT, 119 70 - [...] Address City/State/ZIP Code Phon e Number POC [facility] [address] [place] [address] [place] [address] [place] [facility] [address] [facility] Glucose, POCT (10/16/2021 12:31 AM CDT) Analysis [...] Provider LAB POCT ORDERABLES-MANUAL Performing Organization Address City/[facility] Phon e Number POC [facility] [address] [place] [address] [place] [address] [place] [facility] [address] [facility] (ABNORMAL) Glucose, POCT (10/15/2021 8:15 PM CDT) [...] Provider LAB POCT ORDERABLES-MANUAL Performing Organization Address City/[facility] Phon e Number POC [facility] [address] [place] [address] [place] [address] [place] [address] (ABNORMAL) Glucose, POCT (10/15/2021 5:24 PM CDT) [...] Provider LAB POCT ORDERABLES-MANUAL Performing Organization Address City/[facility] Phon e Number POC [facility] [address] [place] [address] [place] [address] [place] [facility] [address] [facility] (ABNORMAL) Glucose, POCT (10/15/2021 1:03 PM CDT) Analysis Performed At Patho logis Time Signature Glucose, POCT, 165 (H) 70 [...] Provider LAB POCT ORDERABLES-MANUAL Performing Organization Address City/State/[facility] Phon e Number POC [facility] [address] [place] [address] [place] [address] [place] [address] (ABNORMAL) Glucose, POCT [...] Address City/State/ZIP Code Phon e Number POC [facility] [address] [place] [address] PCLX [facility] [place] [address] [place] [address] (ABNORMAL) Tacrolimus, B (10/15/2021 8:08 AM CDT) P athologist Signature Tacrolimus, B 2.0 (L) 5.0-15.0 10/15/2021 [facility] (Trough) 1:38 PM CDT ng/mL Comment: ----ADDITIONAL [...] its performa nce characteristics determined by [facility] in a manner consistent with CLIA requirements. This test has not been cleared or approved by the U.S. Mer d and Drug Administration. Specimen Anatomical Collection Method Collection Time Receive d Time (Source) Location / / Volume Laterality Blood (Blood, 10/15/2021 8:08 AM 10/16/19 9:59 Venous) CDT AM CDT Julian Sanchez M.D. LAB BLOOD NON ADD-ON Performing Organization Address City/[facility] Code Phon e Number [facility] [address] [place], [place] [address] [place] [address] [place] [address] Laboratory Medicine and Pathology [address] [...] 10/15/2021 DTL Black/ mL/min/BSA 9:06 AM CDT [place] Comment: ----ADDITIONAL INFORMATION---- Estimated GFR [...] [facility] - [address] [place], [place] [address] [facility] [place] [address] Laboratories-[facility] [address] (ABNORMAL) CBC with Differential, Blood (10/15/2021 8:08 AM CDT) [facility] gist Method Time Signature Hemoglobin 8.2 [...] Laterality Blood (Blood, 10/15/2021 8:08 AM 10/16/19 22 8:32 Venous) CDT AM CDT Julian Sanchez M.D. LAB BLOOD ADD-ON Performing Organization Address City/State/ZIP Code Phon e Number [facility] - [address] [place], [place] [address] [place] [address] [facility] [address] [facility] Glucose, POCT (10/15/2021 7:39 AM CDT) Analysis [...] Provider LAB POCT ORDERABLES-MANUAL Performing Organization Address City/[facility]/ZIP Code Phon e Number [facility] [address] [place] [address] [place] [address] [facility] 200 [facility] Magnesium (10/15/2021 4:39 AM CDT) P athologist [...] [facility] - 200 [place], [place] [address] [facility] [place] [address] [facility] 200 [facility] (ABNORMAL) Glucose, POCT (10/14/2021 11:19 PM CDT) [...] Provider LAB POCT ORDERABLES-MANUAL Performing Organization Address City/[facility] Code Phon e Number POC [facility] [address] [place] [address] [place] [address] [place] [address] (ABNORMAL) Glucose, POCT (10/14/2021 5:02 PM CDT) athologist Signature Glucose, POCT, 319 (H) 70 - 140 10/14/2021 [facility] B mg/dL 5:11 PM CDT Specimen Anatomical Collection Method Collection Time Receive d Time (Source) Location / / Volume Laterality Blood 10/14/2021 5:02 PM 2 5:12 CDT PM CDT Unknown Provider LAB POCT ORDERABLES-MANUAL Performing Organization Address City/[facility] Phon e Number POC [facility] [address] [place] [address] [place] [address] [place] [address] [facility] Glucose, POCT (10/14/2021 1:20 PM CDT) P athologist Signature Glucose, POCT, 137 70 - 140 10/14/2021 [facility] B mg/dL 1:31 PM CDT Specimen Anatomical Collection Method Collection Time Receive d Time (Source) Location / / Volume Laterality Blood 10/14/2021 1:20 PM 2 1:31 CDT PM CDT Unknown Provider LAB POCT ORDERABLES-MANUAL Performing Organization Address City/[facility] Phon e Number POC [facility] [address] [place] [address] [place] [address] [place] [facility] [address] (ABNORMAL) Glucose, POCT (10/14/2021 9:16 AM CDT) P athologist Signature Glucose, POCT, 170 (H) 70 - 140 10/14/2021 [facility] B mg/dL 10:04 AM CDT Specimen Anatomical Collection Method Collection Time Receive d Time (Source) Location / / Volume Laterality Blood 10/14/2021 9:16 AM 2 CDT 10:04 AM CDT Unknown Provider LAB POCT ORDERABLES-MANUAL Performing Organization Address City/State/ZIP Code Phon e Number POC [facility] [address] [place] [address] PCLX [facility] [place] [address] [place] [address] [facility] (ABNORMAL) Renal Function Panel (10/14/2021 4:47 AM [...] 10/14/2021 DTL Black/ mL/min/BSA 5:53 AM CDT [place] Comment: ----ADDITIONAL INFORMATION---- Estimated GFR [...] [facility] - 200 [place], [place] [address] [facility] [place] [address] [facility] 200 [facility] (ABNORMAL) CBC with Differential, Blood (10/14/2021 4:47 AM CDT) [facility] gist Method Time Signature Hemoglobin 7.9 [...] M.D. LAB BLOOD ADD-ON Performing Organization Address City/[facility]/ZIP [facility] Phon e Number [facility] - [address] [place], [place] [address] [facility] [place] [address] [facility] [address] [facility] (ABNORMAL) Glucose, POCT (10/14/2021 1:26 AM CDT) [...] Provider LAB POCT ORDERABLES-MANUAL Performing Organization Address City/[facility] Phon e Number [facility] [address] [place] [address] PCL[place] [facility] [place] [address] [place] [address] [facility] (ABNORMAL) Glucose, POCT (10/13/2021 10:04 PM CDT) [...] Organization Address City/State/ZIP Code Phon e Number [facility] [address] [place] [address] [facility]CLX [facility] [place] [address] [facility] [address] Cryptococcus Antigen Screen with Titer (10/13/2021 6:26 PM CDT) [facility] Method Time [facility] Cryptococcus Ag Negative Negative 10/14/2021 [facility] Screen w/Titer, 2:31 PM CDT S [...] - BLOOD ORD ERABLES Performing Organization Address City/[facility]/ZIP Code Phon e Number [facility] [address] [place], [place] [address] [facility] [place] [address] Laboratory Medicine and Pathology [address] [place] (ABNORMAL) LD (Lactate Dehydrogenase) (10/13/2021 6:26 PM CDT) [facility] Trudy 281 (H) 122 - 222 10/13/2021 DTL LD U/L 7:31 PM CDT Specimen Anatomical Collection Method Collection Time Receive d Time (Source) Location / / Volume Laterality Blood (Blood, 10/13/2021 6:26 PM 10/14/19 22 7:08 Venous) CDT PM CDT Julian Sanchez M.D. LAB BLOOD NON ADD-ON Performing Organization Address City/[facility]/ZIP Code Phon e Number [facility] - [address] [place], [place] [address] [facility] [place] [address] [facility] [address] (1, 3) Fabf-O-Cacqrs (Fungitell), Serum (10/13/2021 6:26 PM CDT) [facility] Method Time Signature (1, 3) <31 <60 pg/mL 10/16/2021 [facility] Jbsk-U-Ixxsjb, pg/mL 12:19 PM CDT Quantitative (1, 3) Negative Negative 10/16/2021 [facility] Quca-E-Nfbkce, 12:19 PM CDT Qualitative Comment: No (1, 3) Bpdn-T-Oljgay detected. ?? This assay does not detect certain fungi , including Cryptococcus species, which produce very low levels of (1, 3) Xuki-L-Ldxvkc (BDG) and the Mucorales (e.g., Lichthemia, Mucor and Rhizopus), which are not known to produce BDG. Additionally, the yeast phase of Blastom yces dermatitidis produces little BDG and may not be detected by this assay. ----ADDITIONAL INFORMATION---- This assay was performed using the FDA-c leared Fungitell Assay ([facility], [place], [place], [place]), a [facility] HARRIET based on modification of the Limulus Amebocyte Lysate pathway. Specimen Anatomical Collection Method Collection Time Receive d Time (Source) Location / / Volume Laterality Blood (Blood, 10/13/2021 6:26 PM 10/15/19 22 Venous) CDT 12:15 PM CDT Julian Sanchez M.D. LAB MICROBIOLOGY - BLOOD ORD ERABLES Performing Organization Address City/State/ZIP Code Phon e Number [facility] [address] [place] [address] [facility] [place] [address] Laboratory Medicine and Pathology [address] [place] Fungal / TB Culture, Special, Blood (10/13/2021 6:26 PM CDT) [facility] Method Time Signature Fungal/TB No growth 11/25/2021 DTL Culture, after 42 1:05 AM CDT Special, Blood days of incubation. Specimen (Source) Anatomical Collection Method Collection Time Re ceived Time Location / / Volume Laterality Blood (Blood, 10/13/2021 6:26 10/13/2021 7:09 Peripheral Draw) PM CDT PM CDT Comment: Specimen Source Site: Blood Narrative [facility] - [facility] - 11/25/2021 1:05 AM CDT Received Isolator and two Bactec Myco F bottles Specimen Information: Specimen ID: [id number] Specimen Source: Blood, Peripheral Draw Specimen Comment: Specimen Source Site: Blood Specimen Collection Start Date: 10/14/19 ??6:27 PM Specimen Received Date: 10/13/2021 ??7:0 9 PM Specimen ID: [id number] Specimen Source: Blood, Peripheral Draw Specimen Comment: Specimen Source Site: Blood Specimen Collection Start Date: 10/14/19 ??6:26 PM Specimen Received Date: 10/13/2021 ??7:0 9 PM Specimen ID: [id number] Specimen Source: Blood, Peripheral Draw Specimen Comment: Specimen Source Site: Blood Specimen Collection Start Date: 10/14/19 ??6:27 PM Specimen Received Date: 10/13/2021 ??7:0 9 PM Julian Sanchez M.D. LAB MICROBIOLOGY - GENERAL O RDERABLES Performing Organization Address City/State/ZIP Code Phon e Number [facility] - [address] [place] [address] [place] [address] [facility] 200 [facility] Blastomyces Ag, Quant EIA, Urine (10/13/2021 6:09 PM CDT) [facility] Method Time Signature Blastomyces Ag Not Detected Not Detected 10/16/2021 [facility] Result 12:38 PM CDT Comment: No Blastomyces antigen detected. ?? False negative results may occur. ??Repe at testing on a new specimen should be considered if cli nically indicated. ?? Blastomyces Ag Value Not Detected ng/mL 10/16/2021 12:38 PM CDT [facility] Comment: ----ADDITIONAL INFORMATION---- This test was developed and its performa nce characteristics determined by [facility] in a manner co nsistent with CLIA requirements. This test has not bee n cleared or approved by the U.S. Food and Drug Admin istration. Specimen Anatomical Collection Method Collection Time Receive d Time (Source) Location / / Volume Laterality Urine (Urine, 10/13/2021 6:09 PM 10/16/19 6:37 Midstream) CDT AM CDT Julian Sanchez M.D. LAB MICROBIOLOGY - GENERAL O RDERABLES Performing Organization Address [facility] Phon e Number [facility] [address] [place] [address] [place] [address] Laboratory Medicine and Pathology [address] [place] [address] Dr. MURILLO Histoplasma Ag, Quant EIA, Urine (10/13/2021 6:09 PM CDT) [facility] Signature Histoplasma Ag Not Detected Not Detected 10/15/2021 [facility] Result 7:12 PM CDT Comment: No Histoplasma antigen detected. ?? False negative results may occur. ??Repe at testing on a new specimen should be considered if cli nically indicated. ?? Histoplasma Ag Value Not Detected ng/mL 10/15/2021 7:12 PM CDT [facility] Comment: ----ADDITIONAL INFORMATION---- This test has been modified from the man ufacturer's instructions. Its performance characteri stics were determined by [facility] in a manner co nsistent with CLIA requirements. This test has not bee n cleared or approved by the U.S. Food and Drug Admin istration. Specimen Anatomical Collection Method Collection Time Receive d Time (Source) Location / / Volume Laterality Urine (Urine, 10/13/2021 6:09 PM 10/16/19 22 7:06 Midstream) CDT AM CDT Julian Sanchez M.D. LAB URINE ORDERABLES Performing Organization Address [facility] Phon e Number [place] [id number] [place] [address] [place] [address] Laboratory Medicine and Pathology [address] [place] [address] Dr. MURILLO (ABNORMAL) Glucose, POCT (10/13/2021 5:05 PM CDT) Analysis Performed At Patho logist Time Signature Glucose, POCT, 303 (H) 70 - 140 10/13/2021 [facility] B mg/dL 5:19 PM CDT Site Capillary 10/13/2021 [facility] 5:19 PM CDT Specimen Anatomical Collection Method Collection Time Receive d Time (Source) Location / / Volume Laterality Blood 10/13/2021 5:05 PM 5:19 CDT PM CDT Unknown Provider LAB POCT ORDERABLES-MANUAL Performing Organization Address City/[facility]/ZIP Code Phon e Number POC [facility] [address] [place] [address] PCL[place] [facility] [place] [address] [facility] 200 [facility] Fungal Culture, Routine (10/13/2021 2:01 PM CDT) Patholo gist Method Time Signature Fungal No growth 11/07/2021 [...] [facility] - [address] [place], [place] [address] [facility] [place] [address] [facility] [address] [facility] Fungal Smear (10/13/2021 2:01 PM CDT) P athologist Signature Fungal Smear Negative. 10/13/2021 DTL [...] [facility] - [address] [place], [place] [address] [facility] [place] [address] [facility] [address] [facility] (ABNORMAL) Bacterial Culture, Aerobic + Susc, Resp (10/13/2021 2:01 PM CDT) [facility] Method Time Signature Bacterial With usual 10/16/2021 DTL Culture, efrem (A) 1:11 PM CDT Aerobic, Resp Bacterial SERRATIA MARCESCENS 10/16/2021 DTL Culture, 2+ 1:11 PM CDT Aerobic, Resp (A) Comment: Susceptibilities performed on another sp ecimen [id number] This organism may contain an inducible b [...] - GENERAL O GLADYS Performing Organization Address City/[facility]/ZIP Code Phon e Number [facility] - [address] [place], [place] [address] [place] [address] Gram Stain (10/13/2021 2:01 PM CDT) [facility] Method Time Signature Gram Stain Mixed efrem. 10/13/2021 DTL White blood cells, Moderate. 6:59 PM CDT Epithelial cells, Few. Specimen Anatomical Collection Method Collection Time Receive d Time (Source) Location / / Volume Laterality Sputum (Sputum) 10/13/2021 2:01 PM 2021 2:59 CDT PM CDT Comment: Specimen Source Site: Sputum Julian Sanchez M.D. LAB MICROBIOLOGY - GENERAL O GLADYS Performing Organization Address City/[facility]/ZIP Code Phon e Number [facility] - [address] [place], [place] [address] [place] [id number] [place] [address] (ABNORMAL) Glucose, POCT (10/13/2021 11:57 AM CDT) [...] Provider LAB POCT ORDERABLES-MANUAL Performing Organization Address City/[facility]/ZIP [facility] Phon e Number [facility] [address] [place] [address] PCLX [facility] [place] [address] [facility] 200 [facility] MRSA Culture (10/13/2021 10:49 AM CDT) Analysis Performed At [facility] Signature MRSA Culture No growth 10/14/2021 DTL of MRSA 2:07 PM CDT Specimen Anatomical Collection Method Collection Time Receive d Time (Source) Location / / Volume Laterality Swab (Nares) 10/13/2021 10:49 10/13/2021 AM CDT 12:20 PM CDT Comment: Specimen Source Site: Swab Julian Sanchez M.D. LAB MICROBIOLOGY - GENERAL O RDERABLES Performing Organization Address City/[facility]/ZIP Code Phon e Number [facility] - [address] [place], [place] [address] [facility] [place] [address] [facility] 200 [facility] (ABNORMAL) Glucose, POCT (10/13/2021 9:28 AM CDT) Analysis Performed At [facility] Signature Glucose, POCT, 296 (H) 70 - [...] Address City/State/ZIP Code Phon e Number POC [facility] [address] [place] [address] [facility]CLX [facility] [place] [address] [place] [address] (ABNORMAL) Tacrolimus, B (10/13/2021 8:50 AM CDT) athologist Signature Tacrolimus, B 2.7 (L) 5.0-15.0 10/13/2021 [facility] (Trough) 1:05 PM CDT ng/mL Comment: ----ADDITIONAL [...] its performa nce characteristics determined by [facility] in a manner consistent with CLIA requirements. This test has not been cleared or approved by the U.S. Mer d and Drug Administration. Specimen Anatomical Collection Method Collection Time Receive d Time (Source) Location / / Volume Laterality Blood (Blood, 10/13/2021 8:50 AM 10/14/19 22 Venous) CDT 10:23 AM CDT Trung Romero APRN, C.N.P. LAB BLOOD NON ADD-ON Performing Organization Address City/[facility]/ZIP Code Phon e Number [facility] [address] [place], [place] [address] [place] [address] [place] [address] Laboratory Medicine and Pathology [address] [place] HemoQuant, Feces (10/13/2021 8:17 AM CDT) athologist Signature Hemoglobin, 0.6 <=2 mg Hb/g 10/13/2021 DTL Fecal 2:41 PM CDT Comment: ----ADDITIONAL INFORMATION---- This test was developed and its performa nce characteristics determined by [facility] in a manner consistent with CLIA requirements. This test has not been cleared or approved by the U.S. Mer d and Drug Administration. Specimen Anatomical Collection Method Collection Time Receive d Time (Source) Location / / Volume Laterality Stool (Stool) 10/13/2021 8:17 AM 10/14/19 9:07 CDT AM CDT Nelli Gloria APRN, C.N.P. LAB BODY FLUIDS AND STOOLS ORDERABLES Performing Organization Address [facility] Phon e Number [facility] - [address] [place], [place] [address] [facility] [place] [address] [facility] [address] (ABNORMAL) Tacrolimus, B (10/13/2021 8:16 AM CDT) athologist Signature Tacrolimus, B 2.5 (L) 5.0-15.0 10/13/2021 [facility] (Trough) 4:12 PM CDT ng/mL Comment: [...] its performa nce characteristics determined by [facility] in a manner consistent with CLIA requirements. This test has not been cleared or approved by the U.S. Mer d and Drug Administration. Specimen Anatomical Collection Method Collection Time Receive d Time (Source) Location / / Volume Laterality Blood (Blood, 10/13/2021 8:16 AM 10/14/19 Venous) CDT 11:03 AM CDT Julian Sanchez M.D. LAB BLOOD NON ADD-ON Performing Organization Address City/[facility] Code Phon e Number [facility] [address] [place], [place] [address] SUPPORT CENTER [facility] [place] [address] Laboratory Medicine and Pathology [address] [...] Address City/State/ZIP Code Phon e Number POC [facility] [address] [place] [address] PCLX [facility] [place] [address] [place] [address] (ABNORMAL) Morphology Evaluation (Special Smear) (10/13/2021 5:19 AM CDT) [facility] Method Time Signature Neutrophilic Segs 73 50 - 75 % 10/13/2021 DHPM and Bands 8:03 AM CDT Lymphocytes 14 (L) 18 - 42 % 10/13/2021 DHPM 8:03 AM CDT Monocytes 8 2 - 11 % 10/13/2021 DHPM 8:03 AM CDT Eosinophils 1 1 - 3 % 10/13/2021 DHPM 8:03 AM CDT Metamyelocytes 1 (H) <1 % 10/13/2021 DHPM 8:03 AM CDT Myelocytes 3 (H) <0.5 % 10/13/2021 DHPM 8:03 AM CDT Manual Absolute 3.21 1.56 - 10/13/2021 DHPM Neutrophil Count 6.45 8:03 AM CDT x10(9)/L Comment: ----ADDITIONAL INFORMATION---- The manual absolute neutrophil count is derived from a manual differential count and therefore is not exactly comparable to the automated absolute rui trophil count. Interpretation Polychromasia is present. 8:03 AM CDT DHPM Reviewed by: Tereza 10/13/2021 8:03 AM CDT DHPM Specimen Anatomical Collection Method Collection Time Receive d Time (Source) Location / / Volume Laterality Blood (Blood, 10/13/2021 5:19 AM 10/14/19 6:32 Venous) CDT AM CDT Nelli Gloria APRN, C.N.P. LAB BLOOD ADD-ON Performing Organization Address City/State/ZIP Code Phon e Number [facility] - [address] [place], [place] [address] [place] [address] [facility] 200 [facility] Folate (10/13/2021 5:19 AM CDT) athologist Signature Folate, S >20.0 >=4.0 mcg/L 10/15/2021 9:05 DTL AM CDT Specimen Anatomical Collection Method Collection Time Receive d Time (Source) Location / / Volume Laterality Blood (Blood, 10/13/2021 5:19 AM 10/14/19 6:49 Venous) CDT AM CDT Nelli Gloria APRN, C.N.P. LAB BLOOD ADD-ON Performing Organization Address City/[facility] Code Phon e Number [facility] - [address] [place], [place] [address] [place] [address] [facility] Vitamin B12 Assay (10/13/2021 5:19 AM CDT) athologist Signature Vitamin B12 456 180 - 914 10/15/2021 DTL Assay, S ng/L 9:12 AM CDT Comment: [...] C.N.P. LAB BLOOD ADD-ON Performing Organization Address City/[facility] Phon e Number [facility] - [address] [place], [place] [address] [place] [address] [facility] (ABNORMAL) Hemoglobin A1c (10/13/2021 5:19 AM CDT) P athologist Signature Hemoglobin A1c, 7.4 (H) 4.0 [...] Venous) CDT AM CDT Nelli Gloria APRN C.N.P. LAB BLOOD ADD-ON Performing Organization Address City/State/ZIP Code Phon e Number [facility] - [address] [place], [place] [address] [facility] [place] [address] [facility] 200 [facility] (ABNORMAL) CBC with Differential, Blood (10/13/2021 5:19 AM CDT) Patholo gist Method Time Signature Hemoglobin 8.0 (L) [...] CDT AM CDT Nelli Osborn Janette Gloria APRNNDemetriusPDemetrius LAB BLOOD ADD-ON Performing Organization Address City/State/ZIP Code Phon e Number [facility] - [address] [place], [place] [address] [facility] [place] [address] [facility] [address] [facility] (ABNORMAL) Comprehensive Metabolic Panel (10/13/2021 5:19 AM [...] 10/13/2021 DTL Black/ mL/min/BSA 7:08 AM CDT [place] Comment: ----ADDITIONAL INFORMATION---- Estimated GFR [...] [facility] - [address] [place], [place] [address] [facility] [place] [address] [facility] [address] [facility] Aspergillus fumigatus, IgG Antibodies (10/13/2021 5:15 AM CDT) P athologist Signature Aspergillus <3.0 <=102 mg/L 10/15/2021 SDSC fumigatus, IgG 3:08 PM CDT Ab, S Comment: ----ADDITIONAL INFORMATION---- This test was developed and its performa nce characteristics determined by [facility] in a manner co nsistent with CLIA requirements. This test has not bee n cleared or approved by the U.S. Food and Drug Admin istration. Specimen Anatomical Collection Method Collection Time Receive d Time (Source) Location / / Volume Laterality Blood (Blood, 10/13/2021 5:15 AM 10/16/19 Venous) CDT 10:54 AM CDT Julian Sanchez M.D. LAB BLOOD ADD-ON Performing Organization Address City/[facility] Phon e Number [facility] [address] [place] [address] [address] [facility] [place] [address] Laboratory Medicine and Pathology [address] [place] [address] Dr. MURILLO Blastomyces Ab, EIA (10/13/2021 5:15 AM CDT) [facility] Method Time Signature Blastomyces Ab, Negative Negative 10/15/2021 [facility] EIA, S 8:00 PM CDT Comment: [...] - BLOOD ORD ERABLES Performing Organization Address [facility] Phon e Number [facility] [address] [place] [address] [place] [address] Laboratory Medicine and Pathology [address] [place] [address] Dr. MURILLO Histoplasma Ab (10/13/2021 5:15 AM CDT) [facility] Method Time Signature Histoplasma Negative Negative 10/17/2021 [facility] Mycelial 1:32 PM CDT Histoplasma Yeast Negative Negative 10/17/2021 [facility] 1:32 PM CDT Histoplasma Negative Negative 10/17/2021 [facility] Immunodiffusion 1:32 PM CDT Comment: A [...] - BLOOD ORD ERABLES Performing Organization Address City/State/[facility] Code Phon e Number [facility] [address] [place], [place] [address] SUPPORT CENTER [facility] [place] [address] Laboratory Medicine and Pathology [address] [place] (ABNORMAL) Glucose, POCT (10/13/2021 2:12 AM CDT) P athologist Signature Glucose, POCT, 287 (H) 70 - 140 10/13/2021 PCLX B mg/dL 2:19 AM CDT Specimen Anatomical Collection Method Collection Time Receive d Time (Source) Location / / Volume Laterality Blood 10/13/2021 2:12 AM 2:19 CDT AM CDT Unknown Provider LAB POCT ORDERABLES-MANUAL Performing Organization Address City/[facility]/ZIP Code Phon e Number POC [facility] [address] [place] [address] [place] [address] [place] [address] (ABNORMAL) Glucose, POCT (10/13/2021 12:48 AM CDT) [...] Provider LAB POCT ORDERABLES-MANUAL Performing Organization Address City/[facility]/ZIP Code Phon e Number POC [facility] [address] [place] [address] [place] [address] [place] [address] Respiratory Panel, PCR, RESIDENTIAL REAL ESTATE AGENT (10/12/2021 10:37 PM CDT) Component Value Ref [...] suspected, coordinate testing through a local public [facility] health laboratory. Comment: ----ADDITIONAL INFORMATION---- This assay is performed using the FDA-Cl eared cityguruArray Respiratory Panel 2.1 ([employer]wagon). This assay is performed using the FilmAr ray Respiratory Panel 2.1 (Bandwagon). For testing performed at [facility] in [place], [place], performance characteristics for samples submitted in phosphate buffered saline were determined by [facility] in a manner consistent with CLIA requirements. Specimen Anatomical Collection Method Collection Time Receive d Time (Source) Location / / Volume Laterality Varies 10/12/2021 10:37 10/12/2021 (Nasopharynx) PM CDT 11:27 PM CDT Janette Gonzalez APRNN.Evan. LAB MICROBIOLOGY - G ENERAL ORDERABLES Performing Organization Address [facility] Phon e Number [facility] - [address] Gram Stain (10/12/2021 10:37 PM CDT) [facility] Method Time Signature Gram Stain No organisms seen. 10/12/2021 DTL White blood cells, Few. 11:53 PM CDT Epithelial cells, Few. Specimen Anatomical Collection Method Collection Time Receive d Time (Source) Location / / Volume Laterality Sputum 10/12/2021 10:37 10/12/2021 PM CDT 11:33 PM CDT Comment: Specimen Source Site: Sputum Janette Gonzalez APRNN.Evan. LAB MICROBIOLOGY - G ENERAL ORDERABLES Performing Organization Address [facility] Phon e Number [facility] - [address] (ABNORMAL) Bacterial Culture, Aerobic + Susc, Resp (10/12/2021 10:37 PM CDT) [facility] Method Time Signature Bacterial With usual 10/16/2021 [...] Serratia marcescens Cefazolin SUSCEPTIBILITY, >16 mcg/mL: Resistant DAVDI (MCG/ML) Serratia marcescens Ceftriaxone SUSCEPTIBILITY, <=1 mcg/mL: [...] <=0.5/9.5 mc g/mL: Sulfamethoxazole DAVID (MCG/ML) Susceptible Arley Gonzalez APRN.NJuan Miguel LAB MICROBIOLOGY - G ENERAL ORDERABLES Performing Organization Address City/State/ZIP Code Phon e Number [facility] - [address] [place], [place] [address] [facility] [place] [address] [facility] [address] Chest without IV Contrast (10/12/2021 7:19 [...] (10/12/2021 6:15 PM CDT) Analysis Performed At Patho logist Time Signature Glucose, POCT, 292 (H) 70 - 140 10/12/2021 PCLX B mg/dL 6:21 PM CDT Site Capillary 10/12/2021 PCLX 6:21 PM CDT Last Intake 1-2 hours 10/12/2021 PCLX 6:21 PM CDT Specimen Anatomical Collection Method Collection Time Receive d Time (Source) Location / / Volume Laterality Blood 10/12/2021 6:15 PM 2 6:21 CDT PM CDT Unknown Provider LAB POCT ORDERABLES-MANUAL Performing Organization Address City/State/ZIP Code Phon e Number POC [facility] [address] [place] [address] [place] [address] [place] [address] Glucose, POCT (10/12/2021 5:11 PM CDT) Analysis Performed At Patho logist Time Signature Glucose, POCT, Collected DEFAULT 10/12/2021 SMLX B 5:11 PM CDT Specimen Anatomical Collection Method Collection Time Receive d Time (Source) Location / / Volume Laterality Blood (Blood, 10/12/2021 5:11 PM 10/13/19 5:11 Capillary) CDT PM CDT Dex Rouse M.D., Ph.D. LAB POCT ORDERABLES-MANUAL Performing Organization Address City/[facility] Phon e Number [facility] - [address] [place], [place] [address] [facility] [place] [address] [facility] 200 [facility] (ABNORMAL) Glucose, POCT (10/12/2021 5:09 PM [...] Provider LAB POCT ORDERABLES-MANUAL Performing Organization Address [facility] Phon e Number [facility] [address] [place] [address] [place] [address] (ABNORMAL) Venous Blood Gas and Electrolytes CG8+, [...] City/State/ZIP Code Phon e Number POC [facility] IN[facility]IENT [address] [place], [place] [address] LABS [facility] [place] [address] [place] [address] Beta-Hydroxybutyrate (10/12/2021 4:11 PM CDT) P athologist Signature Beta-Hydroxybut 0.1 <0.4 mmol/L 10/12/2021 DTL yrate, S 5:11 PM CDT Specimen Anatomical Collection Method Collection Time Receive d Time (Source) Location / / Volume Laterality Blood (Blood, 10/12/2021 4:11 PM 10/13/19 4:43 Venous) CDT PM CDT Dex Rouse M.D., Ph.D. LAB BLOOD ADD-ON Performing Organization Address City/[facility] Phon e Number [facility] - [address] [place], [place] [address] [facility] [place] [address] Laboratories-[address] Venous Blood Gas and Electrolytes, POCT [...] ORDERABLES - DEVIC E Performing Organization Address [facility] Phon e Number [facility] - [address] [place], [place] [address] [facility] [place] [address] [facility] Bacteria / Marry Culture, Blood #1 [...] CDT Comment: Specimen Source Site: Blood Narrative [facility] - [facility] - 10/17/2021 4:02 PM CDT Received Bactec aerobic and Bactec anaer obic bottles Dex Rouse M.D., Ph.D. LAB MICROBIOLOGY - GENERAL ORDERABLES Performing Organization Address City/[facility]/ZIP [facility] Phon e Number [facility] - [address] [place], [place] [address] [facility] [place] [address] [facility] [address] [facility] Lactate, POCT (10/12/2021 2:52 PM CDT) Analysis Performed At Patho logist Time Signature Lactate, POCT Collected DEFAULT 10/12/2021 SMLX 2:52 PM CDT Specimen Anatomical Collection Method Collection Time Receive d Time (Source) Location / / Volume Laterality Blood (Blood, 10/12/2021 2:52 PM 10/13/19 2:52 Venous) CDT PM CDT Dex Rouse M.D., Ph.D. LAB POCT ORDERABLES - DEVIC E Performing Organization Address [facility] Phon e Number [facility] - [address] [place], [place] [address] [facility] [place] [address] [facility] 200 [facility] Lactate, POCT (10/12/2021 2:51 PM CDT) P athologist Signature Lactate, POCT 1.41 0.50 - 10/12/2021 PCLX 2.20 3:30 PM CDT mmol/L Sample Site, Venstick 10/12/2021 PCL[facility] POCT 3:30 PM CDT Specimen Anatomical Collection Method Collection Time Receive d Time (Source) Location / / Volume Laterality Blood 10/12/2021 2:51 PM 2 3:30 CDT PM CDT Unknown Provider LAB POCT ORDERABLES - DEVICE Performing Organization Address City/[facility]/ZIP [facility] Phon e Number POC [facility] [address] [place] [address] [place] [address] (ABNORMAL) Hepatic Function Panel (10/12/2021 2:51 PM [...] [facility] - [address] [place], [place] [address] [facility] [place] [address] [facility] [address] (ABNORMAL) Basic Metabolic Panel (10/12/2021 2:51 PM [...] eGFR-Black/Afri 30 (L) >=60 10/12/2021 [facility] can [place] mL/min/BSA 4:03 PM CDT Comment: ----ADDITIONAL INFORMATION---- Estimated GFR calculated using the 2009 CKD_EPI creatinine equation. eGFR Non-Black/ 26 (L) >=60 mL/min/BSA 10/12/2021 4:03 PM CDT [facility] [place] Comment: ----ADDITIONAL INFORMATION---- Estimated GFR [...] [facility] - [address] [place], [place] [address] [place] [address] [facility] [address] (ABNORMAL) CBC with Differential, Blood (10/12/2021 2:51 PM CDT) [facility] Method Time Signature Hemoglobin 8.8 (L) [...] Ph.D. LAB BLOOD ADD-ON Performing Organization Address City/State/[facility] Code Phon e Number [facility] - [address] [place] [address] [place] [address] [facility] 200 [facility] Bacteria / Marry Culture, Blood #2 (10/12/2021 2:50 PM CDT) [facility] gist Method Time Signature Bacteria/Negar No [...] [facility] - [address] [place], [place] [address] [facility] [place] [address] Laboratories[facility] [address] SW DX Chest AP [...] SVC. Aortic calcifications. Dex Rouse M.D., Ph.D. [facility] DI[facility]AGING PROC EDURES Influenza A/B, SARS CoV-2, PCR, Rapid, Varies Symptomatic (10/12/2021 1:55 PM CDT) [facility] Method Time Signature Influenza A, Negative Negative 10/12/2021 [facility] PCR, Rapid, V 2:28 PM CDT Influenza B, Negative Negative 10/12/2021 [facility] PCR, Rapid, V 2:28 PM CDT SARS CoV-2, Undetected Undetected 10/12/2021 [facility] PCR, Rapid, V 2:28 PM CDT Comment: ----ADDITIONAL INFORMATION---- This RT-PCR test was performed using the Yadiel SARS-CoV-2 and Influenza A/B Reagent assay from [employer], which has received Emergency Use Authori zation(EUA) by the U.S. Food and Drug Administration . Fact sheets for this Emergency Use Autho rization (EUA) assay can be found at the following link s: For Healthcare Providers: https://www.fda.gov/media/661647/downloa d For Patients: https://www.fda.gov/media/267816/downloa d Infl A/B, SARS CoV-2, PCR, Source Swab, Nasopharynx 10/12/2021 2:03 PM CDT [facility] Specimen Anatomical Collection Method Collection Time Receive d Time (Source) Location / / Volume Laterality Varies 10/12/2021 1:55 PM 2 2:03 (Nasopharynx) CDT PM CDT Nick Frias M.D. LAB MICROBIOLOGY - GENERAL O RDERABLES Performing Organization Address City/State/ZIP Code Phon e Number [facility] - [address] [place] [address] [facility] [place] [address] Laboratories[facility] 200 [facility] ECG 12 Lead (10/12/2021 1:41 PM CDT) P athologist Signature Ventricular Rate 92 BPM MUSE ECG/Min NV Interval 142 ms MUSE QRSD Interval 84 ms MUSE QT Interval 352 ms MUSE QTC Interval 435 ms MUSE P [place] 80 degrees MUSE R [place] 48 degrees MUSE T Wave [place] 69 degrees MUSE Specimen Anatomical Collection Method [...] Frias M.D. 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) Medication Therapy Shelter Not Anticoa gulant Acute Bronchitis Due To [...] puff, inhalation, Daily (RT), First dose on Fri10/13/21 at 0800, fluticasone/vilanterol diskus 100/25 mcg was interchanged for Budesonide/Formoterol Given 10/13/2021 8:41 AM CDT 1 puff fluticasone propionate 50 mcg/actuation Given 10/16/2021 8:02 AM CDT 2 sprays nasal spray 2 spray (FLONASE) 2 spray, each nostril, Daily, First dose on Fri10/13/21 at 0900, fluticasone propionate intranasal 50 mcg/actuation [...] morning, First dose (after last modification) on Fri10/15/21 at 0900 insulin NPH injection 5 Given [...] Given 10/15/2021 6:40 PM CDT 3 mL L.acidoph-L.breanng-B.bif-S.therm tablet 1 Given 10/16/2021 4:18 PM CDT [...] oral, Daily before breakfast, First dose on 10/13/21 at 0700 Given 10/15/2021 6:15 AM CDT [...] oral, Daily at bedtime, First dose on 10/12/21 at 2100 Given 10/14/2021 9:22 PM CDT [...] crush, chew or open capsule., Continuation of xyqtq-qk-dubxfiiww therapy? Yes Given 10/15/2021 8:41 PM CDT 250 mg Given 10/15/2021 8:05 AM CDT 250 mg mycophenolate capsule 500 mg (CELLCEPT) Given 10/13/2021 8:42 AM CDT 250 mg 500 mg, oral, 2 times daily - immunosuppression, First dose on Fri10/12/21 at 2000, Swallow whole. Do NOT crush, chew or open capsule., Continuation of xrccl-hk-yfdfaqprm therapy? Yes Given 10/12/2021 9:00 PM CDT [...] 20 mg, oral, Daily, First dose on 10/13/21 at 0900, For 13 doses predniSONE tablet 20 mg (DELTASONE) Given 10/16/2021 8:02 AM CDT 20 mg 20 mg, oral, Daily, First dose (after last modification) on 10/14/21 at 0900, For 13 doses Given 10/15/2021 [...] R.N.) 0609 (Given - Provider: Diana casanova R.N.) 0.5 mg, nasal, 2 times daily (RT), [...] inhaler 1 puff (BREO ELLIPTA DISKUS) (CANCELED) 0923 (Given - Provider: Liana Horn R.N. - Comment: group cares) 1 puff, inhalation, Daily (RT), First do se on Fri10/13/21 at 0800, fluticasone/vilanterol diskus 100/25 mcg was interchanged for Budesonide/Formoterol fluticasone propionate 50 mcg/actuation nasal spray 2 spray (FLONASE) 09 (Given - Provider: Liana Horn R.N.) 0808 (Given - Provider: Chastity Nichols R.N.) 0802 (Given - Provider: Chastity becerril RDemetriusNDemetrius) 2 spray, each nostril, Daily, First dose on Fri10/13/21 at 0900, fluticasone propionate intranasal 50 mcg/actuation was interchanged for fluticasone furoate intranasal heparin (porcine) 1,000 unit/mL injection 2,000 Units (COMPL ETED) 0911 (Given - Provider: Giorgio Victoria RDemetriusNDemetrius) 2,000 Units, intravenous, Once in dialys is, On 10/15/21 at 0845, For 1 dose, Dialysis, Heparin (during dialysis) Loading dose heparin (porcine) injection 5,000 Units 0600 (Given - Provider: Mary Lou Mahajan R.N.)1321 (Given - Provider: Liana Horn R.N.)2125 (Given - Provider: Mary Lou Mahajan R.N.) 0615 (Given - Provider: Freeman Ace)1334 (Given - Provider: Chastity Nichols R.NDemetrius)2128 (Given - Provider: Mayra Schwab RDemetriusNDemetrius) 0609 (Given - Provider: Diana casanova RDemetriusNDemetrius)1433 (Not Given - Provider: Chastity Nichols RSteve [...] - Provider: Chastity Nichols R.N. - Comment: RM 194) 0700 (Not Given - Provider: Chastity [...] (CO MPLETED) 2127 (Given - Provider: Mayra Schwab R.N.) 4 Units, subcutaneous, Once, On Fri10/15/21 at 2045, For 1 dose insulin NPH injection 20 Units (CANCELED) 09 (Given - Provider: Liana Horn R.N.) 20 [...] (after last modification) on Fri10/14/21 at 1900 L.acidoph-L.bulg-B.bif-S.therm tablet 1 tablet (BACID) 0919 (Given - Provider: Liana Horn R.N. - Comment: group cares)1614 (Given - Provider: Liana Horn R.N.) 0804 (Given - Provider: Chastity becerril RDemetriusNDemetrius)1739 (Given - Provider: Chastity Nichols R.N.) 0802 (Given - Provider: Chastity becerril R.N.)1618 (Given - Provider: Chastity Nichols R.N.) 1 tablet, oral, 2 times daily with meals, First dose on Sat 10/13 at 0800 lamoTRIgine tablet 200 mg (LaMICtaL) 0918 (Given - Pro vider: Liana Horn R.N.)212 (Given - Provider: Mary Lou Mahajan R.N.) 0805 (Given - Provider: Chastity Nichols R.N.)204 (Given - Provider: Mayra Schwab RSteve) 0802 (Given - Provider: Chastity Nichols R.N.) 200 mg, oral, 2 times daily, First dose on Fri10/12/21 at 2100 levothyroxine tablet 25 mcg (SYNTHROID, LEVOTHROID) 07 08 (Given - Provider: Mary Lou Mahajan R.N.) 0615 (Given - Provider: Mary Lou Mahajan R.N.) 0609 (Giv en - Provider: Diana Costello RDemetriusNDemetrius) 25 mcg, oral, Daily before breakfast, First dose on 10/13/21 at 0700 lidocaine 10 mg/mL (1 %) injection 10 mL (XYLOCAINE) 1515 (Due) 10 mL, intradermal, Once, On 10/16/21 at 1515, For 1 dose, Intraprocedure (RAD) loratadine tablet 10 mg (CLARITIN) 2121 (Given - Provider: Bashir Mahajan RSteve) 2040 (Given - Provider: Mayra Schwab R.N.) [...] E) 1706 (Given - Provider: Liana Horn RDale.) 1739 (Given - Provider: Chastity Nichols RDemetriusNDemetrius) 1618 (Given - Provider: Chastity Nichols R.N.) 1 tablet, oral, Daily with dinner, First dose on 10/13/21 at 1700, give after dialysis on dialysis days mycophenolate capsule 250 mg (CELLCEPT) 917 (Given - Provider: Liana Horn RSteve)2121 (Given - Provider: Mary Lou Mahajan R.N.) 08 (Given - Provider: Chastity Nichols R.N.)2040 (Given - Provider: Mayra Schwab RSteve) 0803 (Given - Provider: Chasitty becerril R.NDemetrius) 250 mg, oral, 2 times daily, First dose (after last modification) on 10/13/21 at 2100, Swallow whole. Do NOT crush, chew or open capsule., Continuation of yzmhn-yw-zqxlfoanj therapy? Yes NIFEdipine XL 24 hr tablet 30 mg (PROCARDIA XL) 0919 ( Given - Provider: Liana Horn R.N.) 1334 (Given - Provider: Chastity Nichols R.N.) 0803 (Given - Provider: Chastity Nichols R.N.) 30 mg, oral, Daily, First dose on Sat at 0900, Swallow whole. Do NOT crush, chew, or split tablet. predniSONE tablet 10 mg (DELTASONE)(Linked Group 1) 10 mg, oral, Daily, First dose on 10/27/21 at 0900, For 14 dos es predniSONE tablet 20 mg (DELTASONE) 0919 (Given - Prov ider: Liana Horn RSteve) 0804 (Given - Provider: Chastity Nichols R.N.) 0802 (Given - Provider: Dorene ChauhanNDemetrius) 20 mg, oral, Daily, First dose (after [...] Mahajan R.N.) 0650 (Given - Provider: Freeman Ace)1840 (Given - Provider: Chastity Nichols R.N.) 0805 (Given - Provider: Chastity becerril RDemetriusN. - Comment: per pt request) 1 application, each nostril, 2 times alexandra ly (RT), First dose on 10/13/21 at 0700, With budesonide nasal. sulfamethoxazole-trimethoprim 400-80 mg per tablet 1 t ablet (BACTRIM,SEPTRA) 0918 (Given - Provider: Liana Horn R.N.) 0805 (Given - Provider: Chastity Nichols R.N.) 0802 (Given - Provider: Chastity becerril R.NDemetrius) 1 tablet, oral, Daily, First dose on 10/14/21 at 0900, Drug Monitoring Program: Pharmacist to adjust medication dosing based on indication and drug clearance factors., Indications: Prophylaxis, medical tacrolimus capsule 0.5 mg (PROGRAF) 0946 (Given - Prov ider: Liana Horn R.N.)2121 (Given - Provider: Mary Lou Mahajan R.N.) 0805 (Given - Provider: Chastity Nichols R.N.)2039 (Given - Provider: Mayra Schwab RDemetriusNDemetrius) 0803 (Given - Provider: Chastity Nichols R.N.) [...] 1706 (Given - P rovider: Liana Horn RDemetriusNDemetrius) 450 mg, oral, Every 48 hours, First dose (after last modification) on 10/14/21 at 1800, Swallow whole. Do NOT crush, chew, or split tablet., Drug Monitoring Program: Pharmacist to adjust medication d osing based on indication and drug clearance factors., Indicatio ns: CMV vancomycin capsule 125 mg (VANCOCIN) (CANCELED) 917 ( Given - Provider: Liana Horn RSteve)2121 (Given - Provider: Mary Lou Mahajan R.N.) 0805 (Given - Provider: Chastity Nichols R.N.)2040 (Given - Provider: Mayra Schwab RDemetriusNDemetrius) 0803 (Given - Provider: Chastity becerril R.NDemetrius) 125 mg, oral, 2 times daily, First dose on 10/13/21 at 2100, Drug Monitoring Program: Pharmacist to adjust medication dosing based on indication and drug clearance factors., Indications: Prophylaxis, medical Continuous Medication Order 10/14/2021 10/15/2021 10/16/2021 heparin (porcine) 1,000 unit/mL injection (CANCELED) 0910 (Started During Downtime - Provider: Vlandy Taylay, R.N.) 1,000 Units/hr (1 mL/hr), intravenous, C ontinuous, Starting on 10/15/21 at 0845, Dialysis, Heparin (during dialysis) maintenance dose PRN Medication Order 10/14/2021 10/15/2021 10/16/2021 benzocaine-menthoL 15-3.6 mg per lozenge 1 lozenge (CE PACOL) 2000 (Given - Provider: Mary Lou Mahaajn R.N.) 0615 (Given - Provider: Freeman Ace.)1742 (Given - Provider: Chastity Nichols R.N.)1839 (Given - Provider: Freeman Chauhan.N.) 0759 (Given - Provider: Chastity becerril R.N.)1618 (Given - Provider: Freeman Chauhan.N.) 1 lozenge, oral, As needed, sore throat, cough, Starti ng on 10/14/21 at 1839 bisacodyL suppository 10 mg (DULCOLAX) 10 mg, rectal, Daily PRN, constipation, Starting on Fri10/12/21 at 1742, Ordered sequence of administration: polyethylene glycol, then bisacodyl until BM achieved. lidocaine-prilocaine 2.5-2.5 % cream 1 application (EMLA) 0741 (Given - Provider: Chastity Nichols RDemetriusNDemetrius) 1 application, topical, As needed, mild pain or score 1-3 of 10, to fistula 30 min prior to dialysis, Starting on 10/14/21 at 1333 melatonin tablet 5 mg 0106 (Given - Provider: Nadege Mahajan RDemetriusN.)2121 (Given - Provider: Mary Lou Mahajan RDemetriusNDemetrius) 2137 (Given - Provider: Mayra cuevas R.NDemetrius) [...] documented as of this encounter Care Teams Engravings Polisher Relationship Specialty Start Date End Date Elsewhere, Pcp PCP - General Family Medicine 07/29/17 [facility] - Laboratory Medicine 04/12/[address] [address] documented as of this encounter
--- OUTSIDE RECORDS SUMMARY | 2022-05-17 18:28 | XMS_ITS | Encounter Summary ---
:1955 Author Organization [facility] Address [address] [place] [address] Care Team Providers Name Role Phone Elsewhere, Pcp Primary Care Provider Unavailable Encounter Details Date Type Department Care Team Description 10/12/2021 Orders Only Division of Nephrology and Elissa Wilcox A PRN, Hypertension, Roman Catholic C.N.P. 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 [address] [place] [phone] 05/23/2022 Clinical Admitting/Central Communication Scheduling 05/27/2022 Comprehensive Visit Orthopedic Surgery Markus Sams M.D., Ph.D. [address] [place] [phone] 05/29/2022 Office Visit Otorhinolaryngology Dex Matta APRN, C.N.P., M.S.N. [address] [place] [phone] 05/29/2022 Office Visit Otorhinolaryngology Nadeem Maradiaga, P.Murtaza.-Arley., M.S. [address] [place] [address] [phone] 05/31/2022 Appointment Radiology Guilherme Matt MPAS, Jennifer., M.S. [address] [place] [phone] 06/05/2022 Appointment Laboratory Medicine Angélica Granger P.A.-C. [address] [place] [phone] 06/19/2022 Appointment Laboratory Medicine Angélica Granger P.A.-C. [address] [place] [phone] 07/03/2022 Appointment Laboratory Medicine Angélica Granger P.A.-C. [address] [place] [phone] 07/17/2022 Appointment Laboratory Medicine Angélica Granger P.A.-C. [address] [place] [phone] 07/31/2022 Appointment Laboratory Medicine Angélica Granger P.A.-C. [address] [place] [phone] 08/14/2022 Appointment Laboratory Medicine Angélica Granger P.A.-C. [address] [place] [phone] 08/28/2022 Appointment Laboratory Medicine Angélica Granger P.A.-C. [address] [place] [phone] documented as of this encounter Visit Diagnoses Not on filedocumented in this encounter Additional Health Concerns Infection Onset Date Last Indicated Resolved Time COVID19 Pending 10/12/2021 10/12/2021 10/12/2021 2:28 PM CDT COVID19 Pending 10/12/2021 10/12/2021 10/13/2021 12:34 AM CDT Assessment Noted Time PHQ-9 Depression Total Score: 4 11/28/2020 10:17 AM CD T documented as of this encounter Care Teams Rfid Technician Relationship Specialty Start Date End Date Elsewhere, Pcp PCP - General Family Medicine 07/29/17 [facility] - Laboratory Medicine 04/12/20 [place] [address] documented as of this encounter
--- OUTSIDE RECORDS SUMMARY | 2022-05-17 18:28 | XMS_ITS | Encounter Summary ---
:1955 Author Organization [facility] Address [address] [place] [address] Care Team Providers Name Role Phone Elsewhere, Pcp Primary Care Provider Unavailable Reason for Visit Reason Comments Phone Contact Encounter Details Date Type Department Care Team Description 10/11/2021 Clinical Communication Irena Gamez Phone Contact Center for R, R.N. 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 [facility]ed an order for a 90 [...] and would like a call back at [phone]. He is wanting to speak to Yolie about the portal message she sent today. He is thinking he may know the reasoning behind the results. Thank you, documented in 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 [address] [place] [phone] 05/23/2022 Clinical Admitting/Central Communication Scheduling 05/27/2022 Comprehensive Visit Orthopedic Surgery Markus Sams M.D., Ph.D. [address] [place] [phone] 05/29/2022 Office Visit Otorhinolaryngology Dex Matta APRN, C.N.P., M.S.N. [address] [place] [phone] 05/29/2022 Office Visit Otorhinolaryngology Nadeem Maradiaga P.A.-C., M.S. [address] [place] [phone] 05/31/2022 Appointment Radiology Guilherme Matt MPAS, P.A.-C., M.S. [address] [place] [phone] 06/05/2022 Appointment Laboratory Medicine Angélica Granger P.A.-C. [address] [place] [phone] 06/19/2022 Appointment Laboratory Medicine Angélica Granger P.A.-C. [address] [place] [phone] 07/03/2022 Appointment Laboratory Medicine Angélica Granger P.A.-C. [address] [place] [phone] 07/17/2022 Appointment Laboratory Medicine Angélica Granger P.A.-C. [address] [place] [phone] 07/31/2022 Appointment Laboratory Medicine Angélica Granger P.A.-C. [address] [place] [phone] 08/14/2022 Appointment Laboratory Medicine Angélica Granger P.A.-C. [address] [place] [phone] 08/28/2022 Appointment Laboratory Medicine Angélica Granger P.A.-C. [address] [place] [phone] documented as of this encounter Visit Diagnoses Not on filedocumented in this encounter Additional Health Concerns Assessment Noted Time PHQ-9 Depression Total Score: 4 11/28/2020 10:17 AM CD T documented as of this encounter Care Teams Food Technology Teacher Relationship Specialty Start Date End Date Elsewhere, Pcp PCP - General Family Medicine 07/29/17 [facility] - Laboratory Medicine 04/12/[address] [address] documented as of this encounter
--- OUTSIDE RECORDS SUMMARY | 2022-05-17 18:28 | XMS_ITS | Encounter Summary ---
:1955 Author Organization [facility] Address [address] [place] [address] Care Team Providers Name Role Phone Elsewhere, Pcp Primary Care Provider Unavailable Reason for Referral Specialty Diagnoses / Procedures Referred By Contact Refer red To Contact Juan Jose Petersen M.B .B.S. [place] [address] [place] [phone] Referral ID Status Reason Start Date Expiration Date Visits Requ ested Visits Authorized Encounter Details Date Type Department Care Team Description 10/13/2021 Orders Only Division of [place], Corticosteroid Treatment Endocrinology in [place], [place] SimbaBDemetriusS. 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 [address] [place] [phone] 05/23/2022 Clinical Admitting/Central Communication Scheduling 05/27/2022 Comprehensive Visit Orthopedic Surgery Markus Sams M.D., Ph.D. [address] [place] [phone] 05/29/2022 Office Visit Otorhinolaryngology Dex Matta APRN, C.N.P., M.S.N. [address] [place] [phone] 05/29/2022 Office Visit Otorhinolaryngology Nadeem Maradiaga P.A.-C., M.S. [address] [place] [phone] 05/31/2022 Appointment Radiology Guilherme Matt, Edmundo MAGDALENO, M.S. [address] [place] [phone] 06/05/2022 Appointment Laboratory Medicine Angélica Granger P.A.-C. [address] [place] [phone] 06/19/2022 Appointment Laboratory Medicine Angélica Granger P.A.-C. [address] [place] [phone] 07/03/2022 Appointment Laboratory Medicine Angélica Granger P.A.-C. [address] [place] [phone] 07/17/2022 Appointment Laboratory Medicine Angélica Granger P.A.-C. [address] [place] [phone] 07/31/2022 Appointment Laboratory Medicine Angélica Granger P.A.-C. [address] [place] [phone] 08/14/2022 Appointment Laboratory Medicine Angélica Granger P.A.-C. [address] [place] [phone] 08/28/2022 Appointment Laboratory Medicine Angélica Granger P.A.-C. [address] [place] [phone] Scheduled Referrals Name Type Priority Associated Diagnoses Order S chedule Endocrinology - [facility] Outpatient Routine Corticosteroid Expect ed: nurse education visit Referral Treatment [facility] 10/13/2021 (clinic) Systemic (Approximate), Expires: 01/12/2023 documented as of this encounter Visit Diagnoses Diagnosis Corticosteroid Treatment [facility] Syste bryon - Primary documented in this encounter Additional Health Concerns Infection Onset Date Last Indicated Resolved Time COVID19 Pending 10/12/2021 10/12/2021 10/13/2021 12:34 AM CDT Assessment Noted Time PHQ-9 Depression Total Score: 4 11/28/2020 10:17 AM CD T documented as of this encounter Care Teams Business Process Representative Relationship Specialty Start Date End Date Elsewhere, Pcp PCP - General Family Medicine 07/29/17 [facility] - Laboratory Medicine 04/12/20 [place] [phone] documented as of this encounter
--- OUTSIDE RECORDS SUMMARY | 2022-05-17 18:28 | XMS_ITS | Encounter Summary ---
:1955 Author Organization [facility] Address [address] [place] [address] Care Team Providers Name Role Phone Elsewhere, Pcp Primary Care Provider Unavailable Encounter Details Date Type Department Care Team Description 10/12/2021 Documentation Division of Nephrology and [place], Elissa Gordon APRN, Hypertension, Anglican C.N.P. 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 - 10/12/2021 11:48 AM CDT Mr. Singh is a 66 year-old gentleman who has end-stage renal disease secondary to calcineurin inhibitor use for liver transplant and bilateral renal artery stenosis. He has required initiation of [facility] hemodialysis on June 15, 2021. He is dialyzing at [facility] on Friday, Friday and Friday [...] he was receiving his intermittent hemodialysis at [facility], he was complaining of [...] treatment of Serratia Marcescens bronchitis/bronchiolitis. his Nephrology Golf Course Keeper has recommended that he go to the emergency department in [facility] in [facility] for further evaluation and management. documented in 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 [address] [place] [phone] 05/23/2022 Clinical Admitting/Central Communication Scheduling 05/27/2022 Comprehensive Visit Orthopedic Surgery Markus Sams M.D., Ph.D. [address] [place] [phone] 05/29/2022 Office Visit Otorhinolaryngology Dex Matta APRN, C.N.P., M.S.N. [address] [place] [phone] 05/29/2022 Office Visit Otorhinolaryngology Nadeem Maradiaga P.A.Marie., M.S. [address] [place] [phone] 05/31/2022 Appointment Radiology Guilherme Matt MPAS, PAdilia M.SDemetrius [address] [place] [phone] 06/05/2022 Appointment Laboratory Medicine Angéilca Granger P.A.-C. [address] [place] [phone] 06/19/2022 Appointment Laboratory Medicine Angélica Granger P.A.-C. [address] [place] [phone] 07/03/2022 Appointment Laboratory Medicine Angélica Granger P.A.-C. [address] [place] [phone] 07/17/2022 Appointment Laboratory Angélica Royal P.A.-C. [address] [place] [phone] 07/31/2022 Appointment Laboratory Medicine Angélica Granger P.A.-C. [address] [place] [phone] 08/14/2022 Appointment Laboratory Angélica Royal P.A.-C. [address] [place] [phone] 08/28/2022 Appointment Laboratory Medicine Angélica Granger P.A.-C. [address] [place] [phone] documented as of this encounter Visit Diagnoses Not on filedocumented in this encounter Additional Health Concerns Assessment Noted Time PHQ-9 Depression Total Score: 4 11/28/2020 10:17 AM CD T documented as of this encounter Care Teams Project Internship Relationship Specialty Start Date End Date Elsewhere, Pcp PCP - General Family Medicine 07/29/17 [facility] - Laboratory Medicine 04/12/20 [place] [address] documented as of this encounter
--- OUTSIDE RECORDS SUMMARY | 2022-05-17 18:28 | XMS_ITS | Encounter Summary ---
:1955 Author Organization [facility] Address [address] [place] [address] Care Team Providers Name Role Phone Elsewhere, Pcp Primary Care Provider Unavailable Reason for Visit Reason Comments Labs Only Encounter Details Date Type Department Care Team Description 10/11/2021 Clinical Communication Irena Gamez [facility] Labs Only Center for R, R.N. 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 - 10/11/2021 3:02 PM CDT Provider who reviewed results: Dr Trammell and Trung Plasencia Recommendations: Re-start Valcyte 450 mg every 48 hours after dialysis on dialysis days and decreaseMMF to 250 mg BID Labs are due: 1 week Patient Online Services message was initiated by a [facility] Registered Nurse for report of test [...] R.N. *All labs are now found in [employer] - Lab - Flowsheets. For further review of labs, please review there or under Synopsis* documented in 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 [address] [place] [phone] 05/23/2022 Clinical Admitting/Central Communication Scheduling 05/27/2022 Comprehensive Visit Orthopedic Surgery Markus Sams M.D., Ph.D. [address] [place] [phone] 05/29/2022 Office Visit Otorhinolaryngology Dex Matta APRN, C.NFabrice., M.S.N. [address] [place] [phone] 05/29/2022 Office Visit Otorhinolaryngology Nadeem Maradiaga, Edmundo, M.S. [address] [place] [phone] 05/31/2022 Appointment Radiology Guilherme Matt, RASTA, Edmundo, M.S. [address] [place] [phone] 06/05/2022 Appointment Laboratory Medicine Angélica Granger P.A.-C. [address] [place] [phone] 06/19/2022 Appointment Laboratory Medicine Angélica Granger P.A.-C. [address] [place] [phone] 07/03/2022 Appointment Laboratory Medicine Angélica Granger P.A.-C. [address] [place] [phone] 07/17/2022 Appointment Laboratory Medicine Angélica Granger P.A.-C. [address] [place] [phone] 07/31/2022 Appointment Laboratory Medicine Angélica Granger P.A.-C. [address] [place] [phone] 08/14/2022 Appointment Laboratory Medicine Angélica Granger P.A.-C. [address] [place] [phone] 08/28/2022 Appointment Laboratory Medicine Angélica Granger P.A.-C. [address] [place] [phone] documented as of this encounter Visit Diagnoses Diagnosis Transplant Liver (HCC) - Primary Medication Therapy Citrus Peeler Not Anticoa gulant Infection Cytomegalovirus (HCC) documented in this encounter Additional Health Concerns Assessment Noted Time PHQ-9 Depression Total Score: 4 11/28/2020 10:17 AM CD T documented as of this encounter Care Teams Bellows Assembler Relationship Specialty Start Date End Date Elsewhere, Pcp PCP - General Family Medicine 07/29/17 [facility] - Laboratory Medicine 04/12/[address] [address] documented as of this encounter
--- OUTSIDE RECORDS SUMMARY | 2022-05-17 18:28 | XMS_ITS | Encounter Summary ---
:1955 Author Organization [facility] Address [address] [place] [address] Care Team Providers Name Role Phone Elsewhere, Pcp Primary Care Provider Unavailable Reason for Visit Reason Comments Med Refill Encounter Details Date Type Department Care Team Description 10/11[facility]21 [facility] Trammell M.D[facility] Med Refill Transplantation and Clinical [address] [place] [address] in [facility] [phone] [place] [address] [place], [place] [phone] Social History Tobacco Use Types Packs/Day Years [...] at Date Recorded Male 05/16/2020 4:27 PM KAITARA TARAKA documented as of 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 [address] [place] [phone] 05/23/2022 Clinical Admitting/Central Communication Scheduling 05/27/2022 Comprehensive Visit Orthopedic Surgery Markus Sams M.D., Ph.D. [address] [place] [phone] 05/29/2022 Office Visit Otorhinolaryngology Dex Matta APRN, C.N.P., M.S.N. [address] [place] [phone] 05/29/2022 Office Visit Otorhinolaryngology Nadeem Maradiaga, P.A.-Arley., M.S. [address] [place] [address] [phone] 05/31/2022 Appointment Radiology Guilherme Matt MPAS, PMaryanne., M.S. [address] [place] [address] [phone] 06/05/2022 Appointment Laboratory Medicine Angélica Granger P.A.-C. [address] [place] [address] [phone] 06/19/2022 Appointment Laboratory Medicine Angélica Granger P.A.-C. [address] [place] [phone] 07/03/2022 Appointment Laboratory Medicine Angélica Granger P.A.-C. [address] [place] [phone] 07/17/2022 Appointment Laboratory Medicine Angélica Granger P.A.-C. [address] [place] [phone] 07/31/2022 Appointment Laboratory Medicine Angélica Granger P.A.-C. [address] [place] [phone] 08/14/2022 Appointment Laboratory Medicine Angélica Granger P.A.-C. [address] [place] [phone] 08/28/2022 Appointment Laboratory Medicine Angélica Granger P.A.-C. [address] [place] [phone] documented as of this encounter Visit Diagnoses Diagnosis Transplant Liver (HCC) Medication Therapy [facility] Not Anticoa gulant Infection Cytomegalovirus (HCC) documented in this encounter Additional Health Concerns Assessment Noted Time PHQ-9 Depression Total Score: 4 11/28/2020 10:17 AM CD T documented as of this encounter Care Teams Director Of Strategic Marketing Relationship Specialty Start Date End Date Elsewhere, Pcp PCP - General Family Medicine 07/29/[address] [facility] - Laboratory Medicine 04/12/[address] [address] documented as of this encounter
[2022-05-17 18:29] LABS: Chloride* 94 mmol/L (96-114)
--- OUTSIDE RECORDS SUMMARY | 2022-05-17 18:29 | XMS_ITS | Encounter Summary ---
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 [address] [place] [phone] 05/23/2022 Clinical Admitting/Central Communication Scheduling 05/27/2022 Comprehensive Visit Orthopedic Surgery Markus Sams M.D., Ph.D. [address] [place] [phone] 05/29/2022 Office Visit Otorhinolaryngology Dex Matta, RAMONA, C.N.P., M.S.N. [address] [place] [phone] 05/29/2022 Office Visit Otorhinolaryngology Nadeem Maradiaga P.Murtaza.-Arley., M.S. [address] [place] [address] [phone] 05/31/2022 Appointment Radiology Guilherme Matt MPAS, Edmundo, M.S. [address] [place] [phone] 06/05/2022 Appointment Laboratory Medicine Angélica Granger P.A.-C. [address] [place] [phone] 06/19/2022 Appointment Laboratory Medicine Angélica Granger P.A.-C. [address] [place] [phone] 07/03/2022 Appointment Laboratory Medicine Angélica Granger P.A.-C. [address] [place] [phone] 07/17/2022 Appointment Laboratory Medicine Angélica Granger P.A.-C. [address] [place] [phone] 07/31/2022 Appointment Laboratory Medicine Angélica Granger P.A.-C. [address] [place] [phone] 08/14/2022 Appointment Laboratory Medicine Angélica Granger P.A.-C. [address] [place] [phone] 08/28/2022 Appointment Laboratory Medicine Angélica Granger P.A.-C. [address] [place] [phone] documented as of this encounter Visit Diagnoses Not on filedocumented in this encounter Additional Health Concerns Assessment Noted Time PHQ-9 Depression Total Score: 4 11/28/2020 10:17 AM CD T documented as of this encounter Care Teams Shactor Relationship Specialty Start Date End Date Elsewhere, Pcp PCP - General Family Medicine 07/29/17 [facility] - Laboratory Medicine 04/12/20 [place] [phone] documented as of this encounter
--- OUTSIDE RECORDS SUMMARY | 2022-05-17 18:29 | XMS_ITS | Encounter Summary ---
:1955 Author Organization [facility] Address [address] [place] [address] Care Team Providers Name Role Phone Elsewhere, Pcp Primary Care Provider Unavailable Encounter Details Date Type Department Care Team Description 09/27/2021 Clinical Communication Curt Loera, Center for Patricia Azevedo RDemetriusNDemetrius, Transplantation and C.C.T.C. 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 [address] [place] [phone] 05/23/2022 Clinical Admitting/Central Communication Scheduling 05/27/2022 Comprehensive Visit Orthopedic Surgery Markus Sams M.D., Ph.D. [address] [place] [phone] 05/29/2022 Office Visit Otorhinolaryngology Dex Matta, RAMONA, C.N.P., M.S.N. [address] [place] [phone] 05/29/2022 Office Visit Otorhinolaryngology Nadeem Maradiaga, P.Murtaza.-C., M.S. [address] [place] [address] [phone] 05/31/2022 Appointment Radiology Guilherme Matt MPAS, PMaryanne., M.S. [address] [place] [address] [phone] 06/05/2022 Appointment Laboratory Medicine Angélica Granger P.A.-C. [address] [place] [address] [phone] 06/19/2022 Appointment Laboratory Medicine Angélica Granger P.A.-C. [address] [place] [phone] 07/03/2022 Appointment Laboratory Medicine Angélica Granger P.A.-C. [address] [place] [phone] 07/17/2022 Appointment Laboratory Medicine Angélica Granger P.A.-C. [address] [place] [phone] 07/31/2022 Appointment Laboratory Medicine Angélica Granger P.A.-C. [address] [place] [phone] 08/14/2022 Appointment Laboratory Medicine Angélica Granger P.A.-C. [address] [place] [phone] 08/28/2022 Appointment Laboratory Medicine Angélica Granger P.A.-C. [address] [place] [phone] documented as of this encounter Visit Diagnoses Not on filedocumented in this encounter Additional Health Concerns Assessment Noted Time PHQ-9 Depression Total Score: 4 11/28/2020 10:17 AM CD T documented as of this encounter Care Teams Panelboard Tank Pumper Relationship Specialty Start Date End Date Elsewhere, Pcp PCP - General Family Medicine 07/29/17 [facility] - Laboratory Medicine 04/12/[address] [address] documented as of this encounter
--- OUTSIDE RECORDS SUMMARY | 2022-05-17 18:29 | XMS_ITS | Encounter Summary ---
:1955 Author Organization [facility] Address [address] [place] [address] Care Team Providers Name Role Phone Elsewhere, Pcp Primary Care Provider Unavailable Reason for Referral Outpatient (Routine) - Closed Specialty Diagnoses / Procedures Referred By Contact Refer red To Contact Diagnoses Encounter For Preprocedural Cardiovascular Examination Chronic Kidney Disease Stage 5 GFR Less Than 15 Dialysis Dependent (HCC) Pretransplant Recipient Evaluation Exam Willis Herrera M.D. [facility] Procedures Echo Stress [address] [place], [place] [phone] Referral ID Status Reason Start Date Expiration Date Visits Requ ested Visits Authorized [id number] Closed 09/27/2021 09/27/2022 1 1 Transplant (Routine) - Closed Specialty Diagnoses / Procedures Referred By Contact Refer red To Contact Transplant Surgery / Diagnoses Chronic Kidney Disease Stage 5 GFR Less Than 15 Dialysis Dependent (HCC) Pretransplant Recipient Evaluation Exam Willis Herrera [facility] on Transplant Sada [address] [place] [address] Referral ID Status Reason Start Date Expiration Date Visits Requ ested Visits Authorized [id number] Closed 09/27/2021 09/27/2022 1 1 Scheduling Instructions [...] (HCC) Pretransplant Recipient Evaluation Exam Willis Herrera [facility] on Transplant M.D. 200 [place] [address] Referral ID Status Reason Start Date Expiration Date Visits Requ ested Visits Authorized [id number] Closed 09/27/2021 09/27/2022 1 1 Scheduling Instructions [...] (HCC) Pretransplant Recipient Evaluation Exam Willis Herrera [facility] on Transplant M.D. 200 [place] [address] Referral ID Status Reason Start Date Expiration Date Visits Requ ested Visits Authorized [id number] Closed 09/27/2021 09/27/2022 1 1 Scheduling Instructions Virtual Visits Included: [ x] Yes [ ] No Type of Appointment: [ ] Eval [ x] [facility] Specific Provider: Reason for Visit Reason Comments Waitlist Maintenance Encounter Details Date Type Department Care Team Description 09/26/2021 Clinical Curt Bhardwaj, Wait list Communication Center for Patricia Azevedo Maintenance Transplantation and R.N., C.C.T. C. 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 [address] [place] [phone] 05/23/2022 Clinical Admitting/Central Communication Scheduling 05/27/2022 Comprehensive Visit Orthopedic Surgery Markus Sams M.D., Ph.D. [address] [place] [phone] 05/29/2022 Office Visit Otorhinolaryngology Dex Matta, RAMONA, C.N.P., M.S.N. [address] [place] [phone] 05/29/2022 Office Visit Otorhinolaryngology Nadeem Maradiaga, P.Murtaza.-C., M.S. [address] [place] [phone] 05/31/2022 Appointment Radiology Guilherme Matt, RASTAEdmundo, M.S. [address] [place] [phone] 06/05/2022 Appointment Laboratory Medicine Angélica Granger P.A.-C. [address] [place] [phone] 06/19/2022 Appointment Laboratory Medicine Angélica Granger P.A.-C. [address] [place] [phone] 07/03/2022 Appointment Laboratory Medicine Angélica Granger P.A.-C. [address] [place] [phone] 07/17/2022 Appointment Laboratory Medicine Angélica Granger P.A.-C. [address] [place] [phone] 07/31/2022 Appointment Laboratory Medicine Angélica Granger P.A.-C. [address] [place] [phone] 08/14/2022 Appointment Laboratory Medicine Angélica Granger P.A.-C. [address] [place] [phone] 08/28/2022 Appointment Laboratory Medicine Angélica Granger P.A.-C. [address] [place] [phone] Scheduled Referrals Name Type Priority Associated Order Schedule Diagnoses Transplant Kidney Outpatient Referral Routine Chronic Kidney E xpected: office visit Disease Stage 5 GFR 12/05/19 22, (clinic) Less Than 15 Expires: Dialysis Dependent 3 ([facility]) Pretransplant Recipient Evaluation Exam Transplant Kidney Outpatient Referral Routine Chronic Kidney E xpected: office visit Disease Stage 5 GFR 12/05/19 22, (clinic) Less Than 15 Expires: Dialysis Dependent 3 (HCC) Pretransplant Recipient Evaluation Exam Transplant Kidney Outpatient Referral Routine Chronic Kidney E xpected: office visit Disease Stage 5 GFR 12/05/19 22, (clinic) Less Than 15 Expires: Dialysis Dependent 3 (HCC) Pretransplant Recipient Evaluation Exam documented as of this encounter Results ECHO STRESS 2D WITH COLOR, LIMITED DOPPLER AND CONTRAST (12/10/2021 9:38 AM CDT) [facility] Method Time Signature Ejection Fraction 60 MC [...] For the complete report, see the Order-L addwish Documents. Narrative 12/10/2021 10:18 AM CDT For [...] Signature HBc Total Ab Negative Negative 12/05/2021 [facility] Sc[facility], S 11:47 AM CDT Specimen Anatomical Collection Method Collection Time Receive d Time (Source) Location / / Volume Laterality Blood (Blood, 12/05/2021 7:22 AM 12/06/19 Venous) CDT 10:11 AM CDT Willis Herrera M.D. LAB MICROBIOLOGY - BLOOD ORD ERABLES Performing Organization Address City/State/ZIP Code Phon e Number [facility] [address] [place], [place] [address] [place] [address] [place] [address] Laboratory Medicine and Pathology [address] [place] QuantiFERON-Tb Gold Plus, Blood (12/05/2021 7:22 AM CDT) athologist Signature QuantiFERON-TB Negative Negative 12/06/2021 [facility] Gold Plus 10:18 AM CDT Result [...] Diagnosis of Tuberculosis in Adults and Children [Angelinsohn DM et. al. Clin. Infect. Dis. 2017;64(2):111-115]. The reference range for the 'TB1 Ag migdalia s Nil Result' and 'TB2 Ag minus Nil Result' is an Inte rferon-gamma level <0.35 IU/mL. TB1 Ag minus Nil Result 0.01 IU/mL 12/06/2021 10:18 AM CDT [facility] TB2 Ag minus Nil Result -0.01 IU/mL 12/06/2021 10:18 AM CDT [facility] Mitogen minus Nil Result 9.93 IU/mL 12/06/2021 10:1 8 AM CDT [facility] Nil Result 0.07 IU/mL 12/06/2021 10:18 AM CDT [facility] Specimen Anatomical Collection Method Collection Time Receive d Time (Source) Location / / Volume Laterality Blood (Blood, 12/05/2021 7:22 AM 12/06/19 9:38 Venous) CDT AM CDT Narrative [facility] R - 12/06/2021 10:18 AM CDT Specimen Information: Specimen ID: [id number] Specimen Type: Blood Specimen Collection Start Date: 12/06/19 ??7:22 AM Specimen Received Date: 12/05/2021 ??9:3 8 AM Specimen ID: [id number] Specimen Type: Blood Specimen Collection Start Date: 12/06/19 ??7:22 AM Specimen Received Date: 12/05/2021 ??9:3 8 AM Specimen ID: [id number] Specimen Type: Blood Specimen Collection Start Date: 12/06/19 ??7:23 AM Specimen Received Date: 12/05/2021 ??9:3 8 AM Specimen ID: [id number] Specimen Type: Blood Specimen Collection Start Date: 12/06/19 ??7:22 AM Specimen Received Date: 12/05/2021 ??9:3 8 AM Willis Herrera M.D. LAB MICROBIOLOGY - BLOOD ORD ERABLES Performing Organization Address City/State/ZIP Code Phon e Number [facility] [address] [place], [place] [address] [facility] [place] [address] Laboratory Medicine and Pathology [address] [place] HLA Class II SAB Antibody Screen (12/05/2021 7:22 AM CDT) [facility] Method Time Signature Class II SAB Negative Not Applicable 12/05/2021 [facility] Overall Result 4:24 PM CDT SAB DRB1 NONE 12/05/2021 [facility] Specificity 4:24 PM CDT SAB [id number] NONE 12/05/2021 [facility] Specificity 4:24 PM CDT SAB DQB1 NONE 12/05/2021 [facility] Specificity 4:24 PM CDT SAB DPB1 NONE 12/05/2021 [facility] Specificity 4:24 PM CDT Comment: ----ADDITIONAL INFORMATION---- Method: Luminex Flow Cytometry CLIA: [id number] ??CLIA Dust Control Engineer: KRISTAL MIMS MD,PhD Specimen Anatomical Collection Method Collection Time Receive d Time (Source) Location / / Volume Laterality Blood (Blood, 12/05/2021 7:22 AM 12/06/19 9:13 Venous) CDT AM CDT Willis Herrera M.D. LAB HLA ORDERABLES Performing Organization Address [facility] Phon e Number [facility] - 200 [place], [place] [address] [facility] DBB8 [place], [place] [address] [place] [address] HLA Class I SAB Antibody Screen (12/05/2021 7:22 AM CDT) [facility] Method Time Signature Class I SAB Negative Not Applicable 12/05/2021 [facility] Overall Result 4:16 PM CDT SAB A NONE 12/05/2021 [facility] Specificity 4:16 PM CDT SAB B NONE 12/05/2021 [facility] Specificity 4:16 PM CDT SAB C NONE 12/05/2021 [facility] Specificity 4:16 PM CDT Comment: ----ADDITIONAL INFORMATION---- Method: Luminex Flow Cytometry CLIA: [id number] ??CLIA Dust Control Engineer: KRISTAL MIMS MD,PhD Specimen Anatomical Collection Method Collection Time Receive d Time (Source) Location / / Volume Laterality Blood (Blood, 12/05/2021 7:22 AM 12/06/19 9:13 Venous) CDT AM CDT Willis Herrera M.D. LAB HLA ORDERABLES Performing Organization Address City/[facility] Phon e Number [facility] - 200 [place], [place] [address] [facility] [address]BB[address] [place] [address] HIV-1/-2 Ag and Ab Screen, Plasma (12/05/2021 7:22 AM CDT) athologist Signature HIV-1/-2 Ag Negative Negative 12/05/2021 [facility] and Ab Screen, 11:00 AM CDT [...] - BLOOD ORD ERABLES Performing Organization Address [facility]/ZIP Code Phon e Number [facility] [address] [place] [address] [facility] [place] [address] Laboratory Medicine and Pathology [address] [place] [address] Dr. MURILLO HCV Ab Scrn w/Reflex to HCV PCR, Serum (12/05/2021 7:22 AM CDT) athologist [facility] HCV Ab Screen, Negative Negative 12/05/2021 [facility] S 11:57 AM CDT Comment: Risxcq-us-enhwhj ratio is <1.00 . Specimen Anatomical Collection Method Collection Time Receive d Time (Source) Location / / Volume Laterality Blood (Blood, 12/05/2021 7:22 AM 12/06/19 Venous) CDT 10:11 AM CDT Willis Herrera M.D. LAB MICROBIOLOGY - BLOOD ORD ERABLES Performing Organization Address City/State/ZIP Code Phon e Number [facility] [place] [address] [facility] [place] [address] Laboratory Medicine and Pathology [address] [place] [address] Dr. MURILLO HBs Antigen Scrn, S (12/05/2021 7:22 AM CDT) athologist Signature HBs Antigen Negative Negative 12/05/2021 [facility] Scrn, S 11:39 AM CDT Specimen Anatomical Collection Method Collection Time Receive d Time (Source) Location / / Volume Laterality Blood (Blood, 12/05/2021 7:22 AM 12/06/19 Venous) CDT 10:11 AM CDT Willis Herrera M.D. LAB MICROBIOLOGY - BLOOD ORD ERABLES Performing Organization Address City/[facility]/ZIP Code Phon e Number [facility] [address] [place] [address] [facility] [place] [address] Laboratory Medicine and Pathology [address] [place] [address] Dr. MURILLO HBs Antibody Scrn, S (12/05/2021 7:22 AM CDT) athologist Signature HBs Antibody Positive 12/05/2021 [facility] Scrn, S 11:48 AM CDT Comment: Patient is considered to be immune to in fection with HBV. ----REFERENCE VALUE---- Unvaccinated: Negative Vaccinated: Positive HBs Antibody, Quantitative, S 46.0 mIU/mL 12/05/2021 11:48 AM CDT [facility] Comment: ----REFERENCE VALUE---- Unvaccinated: <5.0 Vaccinated: >=12.0 Specimen Anatomical Collection Method Collection Time Receive d Time (Source) Location / / Volume Laterality Blood (Blood, 12/05/2021 7:22 AM 12/06/19 Venous) CDT 10:11 AM CDT Willis Herrera M.D. LAB MICROBIOLOGY - BLOOD ORD ERAKAJAL Performing Organization Address City/[facility] Code Phon e Number [facility] [address] [place] [address] [facility] [place] [address] Laboratory Medicine and Pathology [address] [place] [address] Dr. MURILLO Hepatitis A IgM Ab, Serum (12/05/2021 7:22 AM CDT) athologist Signature Hepatitis A Negative Negative 12/05/2021 [facility] IgM Ab, S 10:55 AM CDT [...] Address City/State/ZIP Code Phon e Number [facility] [address] [place], [place] [address] [facility] [place] [address] Laboratory Medicine and Pathology [address] [place] [address] Dr. MURILLO Hepatitis A IgG Ab, Serum (12/05/2021 7:22 AM CDT) athologist Signature Hepatitis A Positive 12/05/2021 [facility] IgG Ab, S 10:56 AM CDT [...] e Number [facility] [address] [place] [phone] [facility] [place] [address] Laboratory Medicine and Pathology [address] [place] [address] Dr. M[place]ILLO (ABNORMAL) Troponin T, 5th Generation [...] [facility] - [address] [place], [place] [address] [facility] [place] [address] Laboratories-[facility] [address] documented [...] documented as of this encounter Care Teams Bed Maker Relationship Specialty Start Date End Date Elsewhere, Pcp PCP - General Family Medicine 07/29/17 [facility] - Laboratory Medicine 04/12/[address] [address] documented as of this encounter
--- OUTSIDE RECORDS SUMMARY | 2022-05-17 18:29 | XMS_ITS | Encounter Summary ---
:1955 Author Organization [facility] Address [address] [place] [address] Care Team Providers Name Role Phone Elsewhere, Pcp Primary Care Provider Unavailable Encounter Details Date Type Department Care Team Description 09/19/2021 Orders Only Division of Nephrology and Elissa Wilcox A PRN, Hypertension, Restorationism C.N.P. 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 [address] [place] [phone] 05/23/2022 Clinical Admitting/Central Communication Scheduling 05/27/2022 Comprehensive Visit Orthopedic Surgery Markus Sams M.D., Ph.D. [address] [place] [phone] 05/29/2022 Office Visit Otorhinolaryngology Dex Matta APRN, C.N.P., M.S.N. [address] [place] [phone] 05/29/2022 Office Visit Otorhinolaryngology Nadeem Maradiaga, P.Murtaza.-Arley., M.S. [address] [place] [address] [phone] 05/31/2022 Appointment Radiology Guilherme Matt MPAS, Jennifer., M.S. [address] [place] [phone] 06/05/2022 Appointment Laboratory Medicine Angélica Granger P.A.-C. [address] [place] [phone] 06/19/2022 Appointment Laboratory Medicine Angélica Granger P.A.-C. [address] [place] [phone] 07/03/2022 Appointment Laboratory Medicine Angélica Granger P.A.-C. [address] [place] [phone] 07/17/2022 Appointment Laboratory Medicine Angélica Granger P.A.-C. [address] [place] [phone] 07/31/2022 Appointment Laboratory Medicine Angélica Granger P.A.-C. [address] [place] [phone] 08/14/2022 Appointment Laboratory Medicine Angélica Granger P.A.-C. [address] [place] [phone] 08/28/2022 Appointment Laboratory Medicine Angélica Granger P.A.-C. [address] [place] [phone] documented as of this encounter Visit Diagnoses Not on filedocumented in this encounter Additional Health Concerns Assessment Noted Time PHQ-9 Depression Total Score: 4 11/28/2020 10:17 AM CD T documented as of this encounter Care Teams Home Health Speech Therapist Relationship Specialty Start Date End Date Elsewhere, Pcp PCP - General Family Medicine 07/29/17 [facility] - Laboratory Medicine 04/12/[address] [address] documented as of this encounter
--- OUTSIDE RECORDS SUMMARY | 2022-05-17 18:29 | XMS_ITS | Encounter Summary ---
:1955 Author Organization [facility] Address [address] [place] [address] Care Team Providers Name Role Phone Elsewhere, Pcp Primary Care Provider Unavailable Reason for Visit Reason Comments Labs Only Encounter Details Date Type Department Care Team Description 09/21/2021 Clinical Communication Irena [facility] Labs Only Center for R, R.N. 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 *All labs are now found in [employer] - Lab - Flowsheets. For further review of labs, please review there or under Synopsis* documented in 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 [address] [place] [phone] 05/23/2022 Clinical Admitting/Central Communication Scheduling 05/27/2022 Comprehensive Visit Orthopedic Surgery Markus Sams M.D., Ph.D. [address] [place] [phone] 05/29/2022 Office Visit Otorhinolaryngology Dex Matta APRN, C.N.P., M.S.N. [address] [place] [phone] 05/29/2022 Office Visit Otorhinolaryngology Nadeem Maradiaga, P.Murtaza.-Arley., M.S. [address] [place] [address] [phone] 05/31/2022 Appointment Radiology Guilherme Matt MPAS, Jennifer., M.S. [address] [place] [address] [phone] 06/05/2022 Appointment Laboratory Medicine Angélica Granger P.A.-C. [address] [place] [address] [phone] 06/19/2022 Appointment Laboratory Medicine Angélica Granger P.A.-C. [address] [place] [phone] 07/03/2022 Appointment Laboratory Medicine Angélica Granger P.A.-C. [address] [place] [phone] 07/17/2022 Appointment Laboratory Medicine Angélica Granger P.A.-C. [address] [place] [phone] 07/31/2022 Appointment Laboratory Medicine Angélica Granger P.A.-C. [address] [place] [phone] 08/14/2022 Appointment Laboratory Medicine Angélica Granger P.A.-C. [address] [place] [phone] 08/28/2022 Appointment Laboratory Medicine Angélica Granger P.A.-C. [address] [place] [phone] documented as of this encounter Visit Diagnoses Not on filedocumented in this encounter Additional Health Concerns Assessment Noted Time PHQ-9 Depression Total Score: 4 11/28/2020 10:17 AM CD T documented as of this encounter Care Teams Pool Cleaner Relationship Specialty Start Date End Date Elsewhere, Pcp PCP - General Family Medicine 07/29/17 [facility] - Laboratory Medicine 04/12/[address] [address] documented as of this encounter
--- OUTSIDE RECORDS SUMMARY | 2022-05-17 18:29 | XMS_ITS | Encounter Summary ---
:1955 Author Organization [facility] Address [address] [place] [address] Care Team Providers Name Role Phone Elsewhere, Pcp Primary Care Provider Unavailable Reason for Visit Reason Comments Txp Tacrolimus Adjustment Protocol - Liver Encounter Details Date Type Department Care Team Description 10/05/2021 Clinical Jessika Olivarez Txp [facility] for C, R.N. 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 [address] [place] [phone] 05/29/2022 Office Visit Otorhinolaryngology Dex Matta APRN, C.N.P., M.S.N. [address] [place] [phone] 05/29/2022 Office Visit Otorhinolaryngology Nadeem Maradiaga P.A.-C., M.S. [address] [place] [phone] 05/31/2022 Appointment Radiology Guilherme Matt MPAS, P.A.-C., M.S. [address] [place] [phone] 06/05/2022 Appointment Laboratory Medicine Angélica Granger P.A.-C. [address] [place] [phone] 06/19/2022 Appointment Laboratory Medicine Angélica Granger P.A.-C. [address] [place] [phone] 07/03/2022 Appointment Laboratory Medicine Angélica Granger P.A.-C. [address] [place] [phone] 07/17/2022 Appointment Laboratory Medicine Angélica Granger P.A.-C. [address] [place] [phone] 07/31/2022 Appointment Laboratory Medicine Angélica Granger P.A.-C. [address] [place] [phone] 08/14/2022 Appointment Laboratory Medicine Angélica Granger P.A.-C. [address] [place] [phone] 08/28/2022 Appointment Laboratory Medicine Angélica Granger P.A.-C. [address] [place] [phone] documented as of this encounter Visit Diagnoses Not on filedocumented in this encounter Additional Health Concerns Assessment Noted Time PHQ-9 Depression Total Score: 4 11/28/2020 10:17 AM CD T documented as of this encounter Care Teams Shag Truck Driver Relationship Specialty Start Date End Date Elsewhere, Pcp PCP - General Family Medicine 07/29/17 [facility] - Laboratory Medicine 04/12/20 [place] [address] documented as of this encounter
--- OUTSIDE RECORDS SUMMARY | 2022-05-17 18:29 | XMS_ITS | Encounter Summary ---
:1955 Author Organization [facility] Address [address] [place] [address] Care Team Providers Name Role Phone Elsewhere, Pcp Primary Care Provider Unavailable Reason for Visit Reason Comments Communication Add-on Encounter Details Date Type Department Care Team Description 09/26/2021 Clinical Curt Reid, [facility] Communication Center for Angélica Stern, (Add-on) Transplantation and P.A.-C. 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 I am trying to coordinate with his dialysis he has in [place]. Wondering if you would be willing to add him on in the afternoon of , December 06? Thank you documented in this encounter Plan of Treatment Upcoming Encounters Date Type Specialty Care Team Description 05/22/2022 Appointment Laboratory Medicine Angélica Granger P.ADemetrius-CDemetrius [address] [place] [phone] 05/23/2022 Clinical Admitting/Central Communication Scheduling 05/27/2022 Comprehensive Visit Orthopedic Surgery Markus Sams M.D., Ph.D. [address] [place] [phone] 05/29/2022 Office Visit Otorhinolaryngology Dex Matta APRN, C.N.P., M.S.N. [address] [place] [phone] 05/29/2022 Office Visit Otorhinolaryngology Nadeem Maradiaga, Jennifer., M.S. [address] [place] [phone] 05/31/2022 Appointment Radiology Guilherme Matt MPAS, P.A.-C., M.S. [address] [place] [phone] 06/05/2022 Appointment Laboratory Medicine Angélica Granger P.A.-C. [address] [place] [phone] 06/19/2022 Appointment Laboratory Medicine Angélica Granger P.A.-C. [address] [place] [phone] 07/03/2022 Appointment Laboratory Medicine Angélica Granger P.A.-C. [address] [place] [phone] 07/17/2022 Appointment Laboratory Medicine Angélica Granger P.A.-C. [address] [place] [phone] 07/31/2022 Appointment Laboratory Medicine Angélica Granger P.A.-C. [address] [place] [phone] 08/14/2022 Appointment Laboratory Medicine Angélica Granger P.A.-C. [address] [place] [phone] 08/28/2022 Appointment Laboratory Medicine Angélica Granger P.A.-C. [address] [place] [phone] documented as of this encounter Visit Diagnoses Not on filedocumented in this encounter Additional Health Concerns Assessment Noted Time PHQ-9 Depression Total Score: 4 11/28/2020 10:17 AM CD T documented as of this encounter Care Teams Tube Sizer Operator Relationship Specialty Start Date End Date Elsewhere, Pcp PCP - General Family Medicine 07/29/17 [facility] - Laboratory Medicine 04/12/[address] [address] documented as of this encounter
--- OUTSIDE RECORDS SUMMARY | 2022-05-17 18:29 | XMS_ITS | Encounter Summary ---
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 [address] [place] [phone] 05/23/2022 Clinical Admitting/Central Communication Scheduling 05/27/2022 Comprehensive Visit Orthopedic Surgery Markus Sams M.D., Ph.D. [address] [place] [phone] 05/29/2022 Office Visit Otorhinolaryngology Dex Matta, RAMONA, C.N.P., M.S.N. [address] [place] [phone] 05/29/2022 Office Visit Otorhinolaryngology Nadeem Maradiaga, PEdgar.-Arley., M.S. [address] [place] [address] [phone] 05/31/2022 Appointment Radiology Guilherme Matt MPAS, Jennifer., M.S. [address] [place] [address] [phone] 06/05/2022 Appointment Laboratory Medicine Angélica Granger P.A.-C. [address] [place] [phone] 06/19/2022 Appointment Laboratory Medicine Angélica Granger P.A.-C. [address] [place] [phone] 07/03/2022 Appointment Laboratory Medicine Angélica Granger P.A.-C. [address] [place] [phone] 07/17/2022 Appointment Laboratory Medicine Angélica Granger P.A.-C. [address] [place] [phone] 07/31/2022 Appointment Laboratory Medicine Angélica Granger P.A.-C. [address] [place] [phone] 08/14/2022 Appointment Laboratory Medicine Angélica Granger P.A.-C. [address] [place] [phone] 08/28/2022 Appointment Laboratory Medicine Angélica Granger P.A.-C. [address] [place] [phone] documented as of this encounter Visit Diagnoses Not on filedocumented in this encounter Additional Health Concerns Assessment Noted Time PHQ-9 Depression Total Score: 4 11/28/2020 10:17 AM CD T documented as of this encounter Care Teams Neckties Painter Relationship Specialty Start Date End Date Elsewhere, Pcp PCP - General Family Medicine 07/29/17 [facility] - Laboratory Medicine 04/12/[address] [address] documented as of this encounter
--- OUTSIDE RECORDS SUMMARY | 2022-05-17 18:29 | XMS_ITS | Encounter Summary ---
:1955 Author Organization [facility] Address [address] [place] [address] Care Team Providers Name Role Phone Elsewhere, Pcp Primary Care Provider Unavailable Encounter Details Date Type Department Care Team Description 10/03/2021 Hospital Encounter Department of Trung Plasencia Liver (HCC); Laboratory Medicine Edmundo Stern, Medicati on Therapy Correction Not Anticoagulant; in Jimmie Blake M.S. 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 2 hours prior to dialysis. NIFEdipine XL (PROCARDIA TAKE 3 TABLETS(90 270 tablet 3 06/2310/16/2021 XL) 30 mg 24 hr MG) BY MOUTH DAILY tabletIndications: Hypertension And Chronic Kidney Disease Stage 4 ([facility]) predniSONE (DELTASONE) Take 1 tablet (10 250 tablet 3 202110/16/2021 10 mg tablet mg total) by mouth as directed. 40 mg for 2 weeks 20 mg for 2 weeks 10 mg for 2 weeks then back to 5 mg tacrolimus (PROGRAF) 0.5 TAKE 2 CAPSULES BY 360 capsule 3 10/16/2021 mg capsuleIndications: MOUTH TWICE DAILY Transplant Liver ([facility]), Medication Therapy Correction Not Anticoagulant torsemide (DEMADEX) 10 Take 6 tablets (60 540 tablet 3 09/0510/16/2021 mg tablet mg total) by mouth daily. valGANciclovir (VALCYTE) TAKE 1 TABLET BY 25 tablet 1 08/0810/13/2021 450 mg MOUTH 2 X PER WEEK. tabletIndications: PLEASE TAKE 450 MG Transplant Liver ([facility]), TWICE WEEKLY ON Medication Therapy Long MONDAYS AND Term Not Anticoagulant, THURSDAYS(AFTER Colitis Cytomegalovirus DIALYSIS ON ([facility]) DIALYSIS DAYS). acetaminophen (TYLENOL) Take 1 tablet (500 0 02/0 06/202110/12/2021 500 mg tablet mg total) by mouth every 6 (six) hours as needed for pain. calcium carb/magnesium Take 2 tablets by 0 10/13/2021 oxid/D3 (CALCIUM mouth 2 (two) times MAGNESIUM + D ORAL) a day. Total of 700 mg of calcium, 350 mg of magnesium, and 400 IU of vitamin D Lactobacillus Take 1 capsule by 0 08/15/2021/2 08/2021 acidophilus capsule mouth 2 (two) times a day with meals. While taking antibiotics to help promote gut health. multivitamin tablet Take 1 tablet by 0 06/18/2013 10/12/2021 mouth daily. Maintenance mycophenolate (CELLCEPT) TAKE 1 TABLET BY 180 tablet 3 11/0610/11/2021 500 mg MOUTH TWICE DAILY tabletIndications: Transplant Liver ([facility]) oxyCODONE (ROXICODONE) 5 Take 1 tablet (5 mg 10 tablet 0 10/13/2021 mg immediate release total) by mouth tabletIndications: Acute every 4 (four) Pain hours as needed for severe pain or score 7-10 of 10 Indication: Acute Pain. predniSONE (DELTASONE) 5 TAKE 1 TABLET(5 MG) 90 tablet 3 10/16/2021 mg tabletIndications: BY MOUTH DAILY Transplant Liver (HCC), Medication Therapy Ekg Monitor Not Anticoagulant UNABLE TO FIND by nasal 0 10/12/2021 (alternating) route 2 (two) times a day. Azelastine 1mg to Sinus Rinse twice daily. [facility] documented as of 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 [address] [place] [phone] 05/23/2022 Clinical Admitting/Central Communication Scheduling 05/27/2022 Comprehensive Visit Orthopedic Surgery Markus Sams M.D., Ph.D. [address] [place] [phone] 05/29/2022 Office Visit Otorhinolaryngology Dex Matta APRN, C.N.P., M.S.N. [address] [place] [address] [phone] 05/29/2022 Office Visit Otorhinolaryngology Nadeem Maradiaga, P.A.-C., M.S. [address] [place] [address] [phone] 05/31/2022 Appointment Radiology Guilherme Matt MPAS, P.Murtaza.Marie., M.S. [address] [place] [phone] 06/05/2022 Appointment Laboratory Medicine Angélica Granger P.A.-C. [address] [place] [phone] 06/19/2022 Appointment Laboratory Medicine Angélica Granger P.A.-C. [address] [place] [phone] 07/03/2022 Appointment Laboratory Medicine Angélica Granger P.A.-C. [address] [place] [phone] 07/17/2022 Appointment Laboratory Medicine Angélica Granger P.A.-C. [address] [place] [phone] 07/31/2022 Appointment Laboratory Medicine Angélica Granger P.A.-C. [address] [place] [phone] 08/14/2022 Appointment Laboratory Medicine Angélica Granger P.A.-C. [address] [place] [phone] 08/28/2022 Appointment Laboratory Medicine Angélica Granger P.A.-C. [address] [place] [phone] documented as of this encounter Procedures Procedure Name Priority Date/Time Associated Diagnosis Comme nts CMV DNA DETECT/QUANT, Routine 10/03/2021 8:37 Transplant Liver (HCC) Results for this P AM CDT Medication Therapy procedure are in Correction Not the results Anticoagulant section. Colitis Cytomegalovirus (HCC) TACROLIMUS LEVEL, B Routine 10/03/2021 8:37 Transplant L iver (HCC) Results for this AM CDT Medication Therapy procedure are in Correction Not the results Anticoagulant section. Colitis Cytomegalovirus (HCC) CBC WITHOUT Routine 10/03/2021 8:37 Transplant Liver (HCC) Results for this DIFFERENTIAL, B AM CDT Medication Therapy proced ure are in Ekg Monitor Not the results Anticoagulant section. Colitis Cytomegalovirus (HCC) GLUCOSE, FASTING, S/P Routine 10/03/2021 8:37 Transplant Liver (HCC) Results for this AM CDT Medication Therapy procedure are in Correction Not the results Anticoagulant section. Colitis Cytomegalovirus (HCC) COMPREHENSIVE Routine 10/03/2021 8:37 Transplant Liver (HCC) Results for this METABOLIC PANEL, S/P AM CDT Medication Therapy p rocedure are in Ekg Monitor Not the results Anticoagulant section. Colitis Cytomegalovirus (HCC) documented in this encounter Results (ABNORMAL) Tacrolimus, B (10/03/2021 8:37 AM CDT) P athologist Signature Tacrolimus, B 1.7 (L) 5.0-15.0 10/04/2021 SDSC (Trough) 11:04 AM CDT ng/mL Comment: ----ADDITIONAL [...] performa nce characteristics determined by [facility] in a manner consistent with CLIA requirements. This test has not been cleared or approved by the U.S. Mer d and Drug Administration. Specimen Anatomical Collection Method Collection Time Receive d Time (Source) Location / / Volume Laterality Blood (Blood, 10/03/2021 8:37 AM 10/05/19 22 7:07 Venous) CDT AM CDT Trung Plasencia P.A.-C., M.S. LAB BLOOD NON ADD-ON Performing Organization Address City/State/ZIP Code Phon e Number [facility] [address] [place], [place] [address] SUPPORT CENTER [facility] [place] [address] Laboratory Medicine and Pathology [address] [place] (ABNORMAL) CMV DNA Detect / Quant, Plasma (10/03/2021 8:37 AM CDT) Patholo gist Method Time Signature CMV DNA 158 (A) Undetected 10/04/2021 SDS Detect/Quant, IU/mL 2:04 PM CDT P Comment: Result in log IU/mL is 2.20. ----ADDITIONAL INFORMATION---- The quantification range of this assay i s 35 to 10,000,000 IU/mL (1.54 log to 7.00 log IU/mL). Testing was performed u sing the tika CMV test ([employer] with the tika 6800 System. Specimen Anatomical Collection Method Collection Time Receive d Time (Source) Location / / Volume Laterality Blood (Blood, 10/03/2021 8:37 AM 10/04/19 8:56 Venous) CDT PM CDT Trung Plasencia P.A.-C., M.S. LAB MICROBIOLOGY - BLOOD O RDERABLES Performing Organization Address City/[facility] Phon e Number [facility] [address] [place], [place] [address] [facility] [place] [address] Laboratory Medicine and Pathology [address] [place] (ABNORMAL) Glucose, Fasting (10/03/2021 8:37 [...] LAB BLOOD NON ADD-ON Performing Organization Address City/[facility] Phon e Number [address] [address] [place] [address] System in [address] (ABNORMAL) Comprehensive Metabolic Panel (10/03/2021 8:37 [...] eGFR-Black/Afri 18 (L) >=60 10/03/2021 CNFL can Tanzanian mL/min/BSA 9:00 AM CDT Comment: ----ADDITIONAL INFORMATION---- Estimated GFR calculated using the 2009 CKD_EPI creatinine equation. eGFR Non-Black/ 16 (L) >=60 mL/min/BSA 10/03/2021 9:00 AM CDT CNFL Tanzanian Comment: ----ADDITIONAL INFORMATION---- [...] 8:38 Venous) CDT AM CDT Trung Plasencia P.A.-C. MDemetriusSDemetrius LAB BLOOD ADD-ON Performing Organization Address City/[facility] Phon e Number [address] [address] [place] [address] System in [address] (ABNORMAL) CBC without Differential (10/03/2021 8:37 AM CDT) [facility] gist Method Time Signature Hemoglobin 9.6 [...] 8:38 Venous) CDT AM CDT Trung Plasencia P.A.-C. MDemetriusSDemetrius LAB BLOOD ADD-ON Performing Organization Address City/State/[facility] Code Phon e Number [address] [address] [place] [address] System in [address] documented in this encounter Visit Diagnoses Diagnosis Transplant Liver (HCC) Medication Therapy Ekg Monitor Not Anticoa gulant Colitis Cytomegalovirus (HCC) documented in this encounter Additional Health Concerns Assessment Noted Time PHQ-9 Depression Total Score: 4 11/28/2020 10:17 AM CD T documented as of this encounter Care Teams Six Sigma Project Manager Relationship Specialty Start Date End Date Elsewhere, Pcp PCP - General Family Medicine 07/29/17 [facility] - Laboratory Medicine 04/12/[address] [address] documented as of this encounter
--- OUTSIDE RECORDS SUMMARY | 2022-05-17 18:29 | XMS_ITS | Encounter Summary ---
:1955 Author Organization [facility] Address [address] [place] [address] Care Team Providers Name Role Phone Elsewhere, Pcp Primary Care Provider Unavailable Reason for Visit Reason Comments Txp Tacrolimus Adjustment Protocol - Liver Encounter Details Date Type Department Care Team Description 10/01/2021 Clinical Curt Moss, Josep [facility] Communication Center for Yolie R, Adjustment Transplantation and R.N. Protocol - Liver Clinical Regeneration [address] [facility] [address] 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 [address] [place] [phone] 05/23/2022 Clinical Admitting/Central Communication Scheduling 05/27/2022 Comprehensive Visit Orthopedic Surgery Markus Sams M.D., Ph.D. [address] [place] [phone] 05/29/2022 Office Visit Otorhinolaryngology Dex Matta APRN, C.N.P., M.S.N. [address] [place] [phone] 05/29/2022 Office Visit Otorhinolaryngology Nadeem Maradiaga, Edmundo, M.S. [address] [place] [phone] 05/31/2022 Appointment Radiology Guilherme Matt MPAS, P.A.-C., M.S. [address] [place] [phone] 06/05/2022 Appointment Laboratory Medicine Angélica Granger P.A.-C. [address] [place] [phone] 06/19/2022 Appointment Laboratory Medicine Angélica Granger P.A.-C. [address] [place] [phone] 07/03/2022 Appointment Laboratory Medicine Angélica Granger P.A.-C. [address] [place] [phone] 07/17/2022 Appointment Laboratory Medicine Angélica Granger P.A.-C. [address] [place] [phone] 07/31/2022 Appointment Laboratory Medicine Angélica Granger P.A.-C. [address] [place] [phone] 08/14/2022 Appointment Laboratory Medicine Angélica Granger P.A.-C. [address] [place] [phone] 08/28/2022 Appointment Laboratory Medicine Angélica Granger P.A.-C. [address] [place] [phone] documented as of this encounter Visit Diagnoses Not on filedocumented in this encounter Additional Health Concerns Assessment Noted Time PHQ-9 Depression Total Score: 4 11/28/2020 10:17 AM CD T documented as of this encounter Care Teams Cream Ripener Relationship Specialty Start Date End Date Elsewhere, Pcp PCP - General Family Medicine 07/29/17 [facility] - Laboratory Medicine 04/12/[address] [address] documented as of this encounter
--- OUTSIDE RECORDS SUMMARY | 2022-05-17 18:29 | XMS_ITS | Encounter Summary ---
:1955 Author Organization [facility] Address [address] [place] [address] Care Team Providers Name Role Phone Elsewhere, Pcp Primary Care Provider Unavailable Encounter Details Date Type Department Care Team Description 10/10/2021 Hospital Encounter Department of Trung Plasencia Liver (HCC); Laboratory Medicine Edmundo Stern, Medicati on Therapy Care Home Not Anticoagulant; in Jimmie Blake M.S. 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 40 mg for 2 weeks 20 mg for 2 weeks 10 mg for 2 weeks then back to 5 mg tacrolimus (PROGRAF) 0.5 TAKE 2 CAPSULES BY 360 capsule 3 10/16/2021 mg capsuleIndications: MOUTH TWICE DAILY Transplant Liver ([facility]), Medication Therapy Care Home Not Anticoagulant torsemide (DEMADEX) 10 Take 6 tablets (60 540 tablet 3 09/0510/16/2021 mg tablet mg total) by mouth daily. valGANciclovir (VALCYTE) TAKE 1 TABLET BY 25 tablet 1 08/0810/13/2021 450 mg MOUTH 2 X PER WEEK. tabletIndications: PLEASE TAKE 450 MG Transplant Liver ([facility]), TWICE WEEKLY ON Medication Therapy Long MONDAYS AND Term Not Anticoagulant, THURSDAYS(AFTER Colitis Cytomegalovirus DIALYSIS ON ([facility]) DIALYSIS DAYS). acetaminophen (TYLENOL) Take [...] Transplant Liver ([facility]) NIFEdipine XL (PROCARDIA Take 60 mg by mouth 0 04/29/2022 XL) 30 mg 24 hr tablet daily. oxyCODONE (ROXICODONE) 5 Take 1 tablet (5 mg 10 tablet 0 10/13/2021 mg immediate release total) by mouth tabletIndications: Acute every 4 (four) Pain hours as needed for severe pain or score 7-10 of 10 Indication: Acute Pain. predniSONE (DELTASONE) 5 TAKE 1 TABLET(5 MG) 90 tablet 3 10/16/2021 mg tabletIndications: BY MOUTH DAILY Transplant Liver (HCC), Medication Therapy Sales Counselor Not Anticoagulant UNABLE TO FIND by nasal 0 10/12/2021 (alternating) route 2 (two) times a day. Azelastine 1mg to Sinus Rinse twice daily. [facility] documented as of 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 [address] [place] [phone] 05/23/2022 Clinical Admitting/Central Communication Scheduling 05/27/2022 Comprehensive Visit Orthopedic Surgery Markus Sams M.D., Ph.D. [address] [place] [phone] 05/29/2022 Office Visit Otorhinolaryngology Dex Matta APRN, C.N.P., M.S.N. [address] [place] [phone] 05/29/2022 Office Visit Otorhinolaryngology Nadeem Maradiaga, P.Murtaza.-C., M.S. [address] [place] [phone] 05/31/2022 Appointment Radiology Guilherme Matt MPAS, P.Murtaza.-Arley., M.S. [address] [place] [phone] 06/05/2022 Appointment Laboratory Medicine Angélica Granger P.A.-C. [address] [place] [phone] 06/19/2022 Appointment Laboratory Medicine Angélica Granger P.A.-C. [address] [place] [phone] 07/03/2022 Appointment Laboratory Medicine Angélica Granger P.A.-C. [address] [place] [phone] 07/17/2022 Appointment Laboratory Medicine Angélica Granger P.A.-C. [address] [place] [phone] 07/31/2022 Appointment Laboratory Medicine Angélica Granger P.A.-C. [address] [place] [phone] 08/14/2022 Appointment Laboratory Medicine Angélica Granger P.A.-C. [address] [place] [phone] 08/28/2022 Appointment Laboratory Medicine Angélica Granger P.A.-C. [address] [place] [phone] documented as of this encounter Procedures Procedure Name Priority Date/Time Associated Diagnosis Comme nts GLUCOSE, FASTING, S/P Routine 10/10/2021 9:36 Transplant Liver (HCC) Results for this AM CDT Medication Therapy procedure are in Sales Counselor Not the results Anticoagulant section. Colitis Cytomegalovirus (HCC) CMV DNA DETECT/QUANT, Routine 10/10/2021 9:35 Transplant Liver (HCC) Results for this P AM CDT Medication Therapy procedure are in Sales Counselor Not the results Anticoagulant section. Colitis Cytomegalovirus (HCC) TACROLIMUS LEVEL, B Routine 10/10/2021 9:35 Transplant L iver (HCC) Results for this AM CDT Medication Therapy procedure are in Sales Counselor Not the results Anticoagulant section. Colitis Cytomegalovirus [...] Organization Address City/State/ZIP Code Phon e Number [facility]- [address] [place] [address] [place] [address] (ABNORMAL) Tacrolimus, B (10/10/2021 9:35 AM CDT) athologist Signature Tacrolimus, B 2.5 (L) 5.0-15.0 10/11/2021 SDSC [...] LAB BLOOD NON ADD-ON Performing Organization Address [facility] Phon e Number [facility] [address] [place] [address] Dr [place] [phone] [address] [facility] [place] [address] Laboratory Medicine and Pathology [address] [place] [address] Dr. [place] (ABNORMAL) CMV DNA Detect / Quant, Plasma (10/10/2021 9:35 AM CDT) [facility] gist Method Time Signature CMV DNA 2170 (A) Undetected 10/11/2021 [facility] Detect/Quant, IU/mL 11:53 AM CDT P Comment: Result in log IU/mL is 3.34. ----ADDITIONAL INFORMATION---- The quantification range of this assay i s 35 to 10,000,000 IU/mL (1.54 log to 7.00 log IU/mL). Testing was performed u sing the tika CMV test ([employer] with the tkia [id number] System. Specimen Anatomical Collection Method Collection Time Receive d Time (Source) Location / / Volume Laterality Blood (Blood, 10/10/2021 9:35 AM 10/11/19 22 8:00 Venous) CDT PM CDT Trung Plasencia P.A.-C. MDemetriusSDemetrius LAB MICROBIOLOGY - BLOOD O RDERABLES Performing Organization Address [facility] Phon e Number [address] [place], [place] [address] [facility] [place] [address] Laboratory Medicine and Pathology [address] [place] [address] Dr. [place] (ABNORMAL) Comprehensive Metabolic Panel (10/10/2021 9:35 AM CDT) Analysis Performed At Path logist Time Signature Potassium, P 3.8 3.6 [...] eGFR-Black/Afri 36 (L) >=60 10/10/2021 CNFL can Egyptian mL/min/BSA 10:00 AM CDT Comment: ----ADDITIONAL INFORMATION---- Estimated GFR calculated using the 2009 CKD_EPI creatinine equation. eGFR Non-Black/ 31 (L) >=60 mL/min/BSA 10/10/2021 10:00 AM CDT CNFL [place] Comment: ----ADDITIONAL INFORMATION---- Estimated GFR calculated using [...] M.S. LAB BLOOD ADD-ON Performing Organization Address [facility] Phon e Number [address] [address] [place] [address] (ABNORMAL) CBC without Differential (10/10/2021 9:35 AM CDT) [facility] gist Method Time Signature Hemoglobin 9.8 [...] Organization Address City/[facility] Phon e Number [address] [address] [place] [address] System in [place] [address] [address] documented in this encounter Visit Diagnoses Diagnosis Transplant Liver (HCC) Medication Therapy Care Home Not Anticoa gulant Colitis Cytomegalovirus (HCC) documented in this encounter Additional Health Concerns Assessment Noted Time PHQ-9 Depression Total Score: 4 11/28/2020 10:17 AM CD T documented as of this encounter Care Teams Classroom Assistant Relationship Specialty Start Date End Date Elsewhere, Pcp PCP - General Family Medicine 07/29/17 [facility] - Laboratory Medicine 04/12/[address] [address] documented as of this encounter
--- OUTSIDE RECORDS SUMMARY | 2022-05-17 18:29 | XMS_ITS | Encounter Summary ---
:1955 Author Organization [facility] Address [address] [place] [address] Care Team Providers Name Role Phone Elsewhere, Pcp Primary Care Provider Unavailable Encounter Details Date Type Department Care Team Description 09/27/2021 Hospital Encounter Department of Trung Plasencia Liver (HCC); Laboratory Medicine Edmundo Stern, Medicati on Therapy Landscape Architecture Teacher Not Anticoagulant; in Jimmie Blake M.S. 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 40 mg for 2 weeks 20 mg for 2 weeks 10 mg for 2 weeks then back to 5 mg tacrolimus (PROGRAF) 0.5 TAKE 2 CAPSULES BY 360 capsule 3 10/16/2021 mg capsuleIndications: MOUTH TWICE DAILY Transplant Liver ([facility]), Medication Therapy Prison Not Anticoagulant torsemide (DEMADEX) 10 Take 6 tablets (60 540 tablet 3 09/0510/16/2021 mg tablet mg total) by mouth daily. valGANciclovir (VALCYTE) TAKE 1 TABLET BY 25 tablet 1 08/0810/13/2021 450 mg MOUTH 2 X PER WEEK. 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 acetaminophen (TYLENOL) Take 1 tablet [...] TWICE DAILY tabletIndications: Transplant Liver ([facility]) oxyCODONE (ROXICODONE) 5 Take 1 tablet (5 mg 10 tablet 0 10/13/2021 mg immediate release total) by mouth tabletIndications: Acute every 4 (four) Pain hours as needed for severe pain or score 7-10 of 10 Indication: Acute Pain. predniSONE (DELTASONE) 5 TAKE 1 TABLET(5 MG) 90 tablet 3 10/16/2021 mg tabletIndications: BY MOUTH DAILY Transplant Liver (HCC), Medication Therapy Prison Not Anticoagulant UNABLE TO FIND by nasal 0 10/12/2021 (alternating) route 2 (two) times a day. Azelastine 1mg to Sinus Rinse twice daily. [facility] documented as of 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 [address] [place] [phone] 05/23/2022 Clinical Admitting/Central Communication Scheduling 05/27/2022 Comprehensive Visit Orthopedic Surgery Markus Sams M.D., Ph.D. [address] [place] [phone] 05/29/2022 Office Visit Otorhinolaryngology Dex Matta APRN, C.N.P., M.S.N. [address] [place] [address] [phone] 05/29/2022 Office Visit Otorhinolaryngology Nadeem Maradiaga, P.A.-C., M.S. [address] [place] [address] [phone] 05/31/2022 Appointment Radiology Guilherme Matt MPAS, P.Murtaza.Marie., M.S. [address] [place] [phone] 06/05/2022 Appointment Laboratory Medicine Angélica Granger P.A.-C. [address] [place] [phone] 06/19/2022 Appointment Laboratory Medicine Angélica Granger P.A.-C. [address] [place] [phone] 07/03/2022 Appointment Laboratory Medicine Angélica Granger P.A.-C. [address] [place] [phone] 07/17/2022 Appointment Laboratory Medicine Angélica Granger P.A.-C. [address] [place] [phone] 07/31/2022 Appointment Laboratory Medicine Angélica Granger P.A.-C. [address] [place] [phone] 08/14/2022 Appointment Laboratory Medicine Angélica Granger P.A.-C. [address] [place] [phone] 08/28/2022 Appointment Laboratory Medicine Angélica Granger P.A.-C. [address] [place] [phone] documented as of this encounter Procedures Procedure Name Priority Date/Time Associated Diagnosis Comme nts CMV DNA DETECT/QUANT, Routine 09/27/2021 10:37 Transplan t Liver (HCC) Results for this P AM CDT Medication Therapy procedure are in Landscape Architecture Teacher Not the results Anticoagulant section. Colitis Cytomegalovirus (HCC) TACROLIMUS LEVEL, B Routine 09/27/2021 10:37 Transplant Liver (HCC) Results for this AM CDT Medication Therapy procedure are in Prison Not the results Anticoagulant section. Colitis Cytomegalovirus (HCC) CBC WITHOUT Routine 09/27/2021 10:37 Transplant Live r (HCC) Results for this DIFFERENTIAL, B AM CDT Medication Therapy proced ure are in Prison Not the results Anticoagulant section. Colitis Cytomegalovirus (HCC) GLUCOSE, FASTING, S/P Routine 09/27/2021 10:37 Transplan t Liver (HCC) Results for this AM CDT Medication Therapy procedure are in Prison Not the results Anticoagulant section. Colitis Cytomegalovirus (HCC) COMPREHENSIVE Routine 09/27/2021 10:37 Transplant Live r (HCC) Results for this METABOLIC PANEL, S/P AM CDT Medication Therapy p rocedure are in Landscape Architecture Teacher Not the results Anticoagulant section. Colitis Cytomegalovirus (HCC) documented in this encounter Results (ABNORMAL) Tacrolimus, B (09/27/2021 10:37 AM CDT) athologist Signature Tacrolimus, B 1.4 (L) 5.0-15.0 09/28/2021 [facility] (Trough) 12:36 PM CDT ng/mL Comment: ----ADDITIONAL [...] performa nce characteristics determined by [facility] in a manner consistent with CLIA [...] [address] [place], [place] [address] [facility] [place] [address] Laboratory Medicine and Pathology [address] [place] (ABNORMAL) CMV DNA Detect / Quant, Plasma (09/27/2021 10:37 AM CDT) [facility] gist Method Time Signature CMV DNA <35 (A) Undetected 09/28/2021 [facility] Detect/Quant, IU/mL 8:13 PM CDT P Comment: [...] u sing the tika CMV test ([employer] with the tika 6800 System. Specimen Anatomical Collection Method Collection Time Receive d Time (Source) Location / / Volume Laterality Blood (Blood, 09/27/2021 10:37 09/28/2021 7:09 Venous) AM CDT AM CDT Trung Plasencia P.A.-C., M.S. LAB MICROBIOLOGY - BLOOD O RDERABLES Performing Organization Address City/[facility] Code Phon e Number [facility] [address] [place], [place] [address] [place] [address] [place] [address] Laboratory Medicine and Pathology [address] [place] [address] Dr. [place] (ABNORMAL) Glucose, Fasting (09/27/2021 10:37 [...] BLOOD NON ADD-ON Performing Organization Address City/[facility] Phon e Number [address] [address] [place] [address] System [address] (ABNORMAL) Comprehensive Metabolic Panel (09/27/2021 10:37 [...] eGFR-Black/Afri 20 (L) >=60 09/27/2021 CN[facility] can [place] mL/min/BSA 10:58 AM CDT Comment: ----ADDITIONAL INFORMATION---- Estimated GFR calculated using the 2009 CKD_EPI creatinine equation. eGFR Non-Black/ 17 (L) >=60 mL/min/BSA 09/27/2021 10:58 AM CDT [facility] [place] Comment: ----ADDITIONAL INFORMATION---- Estimated GFR calculated using [...] M.S. LAB BLOOD ADD-ON Performing Organization Address [facility] Phon e Number [address] [address] [place] [address] System [address] (ABNORMAL) CBC without Differential (09/27/2021 10:37 AM CDT) [facility] gist Method Time Signature Hemoglobin 10.7 (L) [...] M.S. LAB BLOOD ADD-ON Performing Organization Address City/[facility] Phon e Number [address] [address] [place] [address] System in [place] [address] [place] [address] documented in this encounter Visit Diagnoses Diagnosis Transplant Liver (HCC) Medication Therapy Prison Not Anticoa gulant Colitis Cytomegalovirus (HCC) documented in this encounter Additional Health Concerns Assessment Noted Time PHQ-9 Depression Total Score: 4 11/28/2020 10:17 AM CD T documented as of this encounter Care Teams Sales Representative Door To Door Relationship Specialty Start Date End Date Elsewhere, Pcp PCP - General Family Medicine 07/29/17 [facility] - Laboratory Medicine 04/12/[address] [address] documented as of this encounter
--- OUTSIDE RECORDS SUMMARY | 2022-05-17 18:29 | XMS_ITS | Encounter Summary ---
:1955 Author Organization [facility] Address [address] [place] [address] Care Team Providers Name Role Phone Elsewhere, Pcp Primary Care Provider Unavailable Reason for Visit Reason Comments Labs Only Encounter Details Date Type Department Care Team Description 10/04/2021 Clinical Communication Irena Gamez [facility] Labs Only Center for R, R.N. 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 [address] [place] [phone] 05/23/2022 Clinical Admitting/Central Communication Scheduling 05/27/2022 Comprehensive Visit Orthopedic Surgery Markus Sams M.D., Ph.D. [address] [place] [phone] 05/29/2022 Office Visit Otorhinolaryngology Dex Matta APRN, C.N.P., M.S.N. [address] [place] [phone] 05/29/2022 Office Visit Otorhinolaryngology Nadeem Maradiaga P.A.-C., M.S. [address] [place] [address] [phone] 05/31/2022 Appointment Radiology Guilherme Matt MPAS, P.A.-C., M.S. [address] [place] [phone] 06/05/2022 Appointment Laboratory Medicine Angélica Granger P.A.-C. [address] [place] [phone] 06/19/2022 Appointment Laboratory Medicine Angélica Granger P.A.-C. [address] [place] [address] [phone] 07/03/2022 Appointment Laboratory Medicine Angélica Granger P.A.-C. [address] [place] [address] [phone] 07/17/2022 Appointment Laboratory Medicine Angélica Granger P.A.-C. [address] [place] [phone] 07/31/2022 Appointment Laboratory Medicine Angélica Granger P.A.-C. [address] [place] [phone] 08/14/2022 Appointment Laboratory Medicine Angélica Granger P.A.-C. [address] [place] [phone] 08/28/2022 Appointment Laboratory Medicine Angélica Granger P.A.-C. [address] [place] [phone] documented as of this encounter Visit Diagnoses Not on filedocumented in this encounter Additional Health Concerns Infection Onset Date Last Indicated Resolved Time COVID19 Pending 10/12/2021 10/12/2021 10/12/2021 2:28 PM CDT COVID19 Pending 10/12/2021 10/12/2021 10/13/2021 12:34 AM CDT Assessment Noted Time PHQ-9 Depression Total Score: 4 11/28/2020 10:17 AM CD T documented as of this encounter Care Teams Sweeper Driver Relationship Specialty Start Date End Date Elsewhere, Pcp PCP - General Family Medicine 07/29/17 [facility] - Laboratory Medicine 04/12/[address] [address] documented as of this encounter
[2022-05-17 18:30] LABS: Potassium* 4.3 mmol/L (3.6-5.1); Sodium* 128 mmol/L (135-149)
--- OUTSIDE RECORDS SUMMARY | 2022-05-17 18:30 | XMS_ITS | Encounter Summary ---
:1955 Author Organization [facility] Address [address] [place] [address] Care Team Providers Name Role Phone Elsewhere, Pcp Primary Care Provider Unavailable Encounter Details Date Type Department Care Team Description 09/06/2021 Orders Only Curt Garces Javier, Gail Griffiths Kidney Disease; Center for M.D. 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 [address] [place] [phone] 05/23/2022 Clinical Admitting/Central Communication Scheduling 05/27/2022 Comprehensive Visit Orthopedic Surgery Markus Sams M.D., Ph.D. [address] [place] [phone] 05/29/2022 Office Visit Otorhinolaryngology Dex Matta, CARBON BRUSHES ASSEMBLER, C.N.P., M.S.N. [address] [place] [phone] 05/29/2022 Office Visit Otorhinolaryngology Nadeem Maradiaga, PEdgar.-Arley., M.S. [address] [place] [phone] 05/31/2022 Appointment Radiology Guilherme Matt MPAS, Jennifer., M.S. [address] [place] [address] [phone] 06/05/2022 Appointment Laboratory Medicine Angélica Granger P.A.-C. [address] [place] [phone] 06/19/2022 Appointment Laboratory Medicine Angélica Granger P.A.-C. [address] [place] [phone] 07/03/2022 Appointment Laboratory Medicine Angélica Granger P.A.-C. [address] [place] [phone] 07/17/2022 Appointment Laboratory Medicine Angélica Granger P.A.-C. [address] [place] [phone] 07/31/2022 Appointment Laboratory Medicine Angélica Granger P.A.-C. [address] [place] [phone] 08/14/2022 Appointment Laboratory Medicine Angélica Granger P.A.-C. [address] [place] [phone] 08/28/2022 Appointment Laboratory Medicine Angélica Granger P.A.-C. [address] [place] [phone] documented as of this encounter Results HLA Class II SAB Antibody Screen (09/21/2021 2:00 PM CDT) [facility] Method Time Signature Class II SAB [...] NONE 09/26/2021 10:09 PM CDT DBB8 SAB [id number] Specificity NONE 09/26/2021 10:09 PM CDT DBB8 SAB DQB1 Specificity NONE 09/26/2021 10:09 PM CDT DBB8 SAB DPB1 Specificity NONE 09/26/2021 10:09 PM CDT DBB8 Comment: ----ADDITIONAL INFORMATION---- Method: Luminex Flow Cytometry CLIA: [id number] ??CLIA Director Of Sales And Marketing: KRISTAL MIMS MD,PhD Specimen Anatomical Collection Method Collection Time Receive d Time (Source) Location / / Volume Laterality Blood (Blood, 09/21/2021 2:00 PM 09/26/19 2:41 Venous) CDT PM CDT Resulting Agency Comment Mailed In Specimen Willis Herrera M.D. LAB HLA ORDERABLES Performing Organization Address City/State/ZIP Code Phon e Number [facility] - [address] [place], [place] [address] [facility] [address] [place] [address] Laboratories-[facility] [address] HLA Class I SAB Antibody Screen (09/21/2021 2:00 PM CDT) [facility] Method Time Signature Class I SAB [...] ----ADDITIONAL INFORMATION---- Method: Luminex Flow Cytometry CLIA: [id number] ??CLIA Director Of Sales And Marketing: KRISTAL MIMS MD,PhD Specimen Anatomical Collection Method Collection Time Receive d Time (Source) Location / / Volume Laterality Blood (Blood, 09/21/2021 2:00 PM 09/26/19 22 2:41 Venous) CDT PM CDT Resulting Agency Comment Mailed In Specimen Willis Herrera M.D. LAB HLA ORDERABLES Performing Organization Address City/State/[facility] Code Phon e Number [facility] - [address] [place], [place] [address] [facility] [place] [address] [place] [address] Laboratories-[facility] [address] documented in this encounter Visit Diagnoses Diagnosis Chronic Kidney Disease Pretransplant Recipient Evaluation Exam documented in this encounter Additional Health Concerns Assessment Noted Time PHQ-9 Depression Total Score: 4 11/28/2020 10:17 AM CD T documented as of this encounter Care Teams Filer And Sander Relationship Specialty Start Date End Date Elsewhere, Pcp PCP - General Family Medicine 07/29/17 [facility] - Laboratory Medicine 04/12/20 [place] [address] documented as of this encounter
--- OUTSIDE RECORDS SUMMARY | 2022-05-17 18:30 | XMS_ITS | Encounter Summary ---
:1955 Author Organization [facility] Address [address] [place] [address] Care Team Providers Name Role Phone Elsewhere, Pcp Primary Care Provider Unavailable Reason for Visit Reason Comments Txp Tacrolimus Adjustment Protocol - Liver Encounter Details Date Type Department Care Team Description 09/06/2021 Clinical Jessika Olivarez Txp [facility] for C, R.N. 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 - 09/06/2021 3:46 PM [...] tremor? No Pharmacy patient uses for immunosuppression: [facility] in [place], [place] Any other pertinent information related to above (please comment on any pertinent answers above)? 13hour trough; patient on dialysis. Dialysis team did increase his Torsemide to BID. Recommendations? documented in 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 [address] [place] [phone] 05/23/2022 Clinical Admitting/Central Communication Scheduling 05/27/2022 Comprehensive Visit Orthopedic Surgery Markus Sams M.D., Ph.D. [address] [place] [phone] 05/29/2022 Office Visit Otorhinolaryngology Dex Matta APRN, C.N.P., M.S.N. [address] [place] [phone] 05/29/2022 Office Visit Otorhinolaryngology Nadeem Maradiaga, P.A.-Arley., M.S. [address] [place] [phone] 05/31/2022 Appointment Radiology Guilherme Matt MPAS, PEdgar.Dylan, M.S. [address] [place] [phone] 06/05/2022 Appointment Laboratory Medicine Angélica Granger P.A.-C. [address] [place] [phone] 06/19/2022 Appointment Laboratory Medicine Angélica Granger P.A.-C. [address] [place] [phone] 07/03/2022 Appointment Laboratory Medicine Angélica Granger P.A.-C. [address] [place] [phone] 07/17/2022 Appointment Laboratory Medicine Angélica Granger P.A.-C. [address] [place] [phone] 07/31/2022 Appointment Laboratory Medicine Angélica Granger P.A.-C. [address] [place] [phone] 08/14/2022 Appointment Laboratory Medicine Angélica Granger P.A.-C. [address] [place] [phone] 08/28/2022 Appointment Laboratory Medicine Angélica Granger P.A.-C. [address] [place] [phone] documented as of this encounter Visit Diagnoses Not on filedocumented in this encounter Additional Health Concerns Assessment Noted Time PHQ-9 Depression Total Score: 4 11/28/2020 10:17 AM CD T documented as of this encounter Care Teams Overhead Foreman Relationship Specialty Start Date End Date Elsewhere, Pcp PCP - General Family Medicine 07/29/17 [facility] - Laboratory Medicine 04/12/[address] [address] documented as of this encounter
--- OUTSIDE RECORDS SUMMARY | 2022-05-17 18:30 | XMS_ITS | Encounter Summary ---
:1955 Author Organization [facility] Address [address] [place] [address] Care Team Providers Name Role Phone Elsewhere, Pcp Primary Care Provider Unavailable Encounter Details Date Type Department Care Team Description 09/07/2021 Hospital Encounter Department of Willis Herrera Chro nic Kidney Disease; Laboratory Medicine M.DDemetrius Pretransplant Recipient Evaluation Exam and Pathology, [address] [place] [address] in 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 Transplant Liver (HCC) NIFEdipine XL (PROCARDIA TAKE 3 TABLETS(90 270 tablet 3 06/2310/16/2021 XL) 30 mg 24 hr MG) BY MOUTH DAILY tabletIndications: Hypertension And Chronic Kidney Disease Stage 4 (HCC) predniSONE (DELTASONE) Take 1 tablet (10 250 tablet 3 202110/16/2021 10 mg tablet mg total) by mouth as directed. 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 acetaminophen (TYLENOL) Take 1 tablet [...] D Lactobacillus Take 1 capsule by 0 08/15/20212 08/2021 acidophilus capsule mouth 2 (two) times a day with meals. While taking antibiotics to help promote gut health. multivitamin tablet Take 1 tablet by 0 06/18/2013 10/12/2021 mouth daily. Maintenance mycophenolate (CELLCEPT) TAKE 1 TABLET BY 180 tablet 3 11/0610/11/2021 500 mg MOUTH TWICE DAILY tabletIndications: Transplant Liver (HCC) oxyCODONE (ROXICODONE) 5 Take 1 tablet (5 mg 10 tablet 0 10/13/2021 mg immediate release total) by mouth tabletIndications: Acute every 4 (four) Pain hours as needed for severe pain or score 7-10 of 10 Indication: Acute Pain. predniSONE (DELTASONE) 5 TAKE 1 TABLET(5 MG) 90 tablet 3 10/16/2021 mg tabletIndications: BY MOUTH DAILY Transplant Liver (HCC), Medication Therapy Director Adult Not Anticoagulant UNABLE TO FIND by nasal 0 10/12/2021 (alternating) route 2 (two) times a day. Azelastine 1mg to Sinus Rinse twice daily. [facility] documented as of 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 [address] [place] [phone] 05/23/2022 Clinical Admitting/Central Communication Scheduling 05/27/2022 Comprehensive Visit Orthopedic Surgery Markus Sams M.D., Ph.D. [address] [place] [phone] 05/29/2022 Office Visit Otorhinolaryngology Dex Matta APRN, C.N.P., M.S.N. [address] [place] [address] [phone] 05/29/2022 Office Visit Otorhinolaryngology Nadeem Maradiaga, P.Murtaza.Marie., M.S. [address] [place] [address] [phone] 05/31/2022 Appointment Radiology Guilherme Matt, RASTA, PMaryanne., M.S. [address] [place] [phone] 06/05/2022 Appointment Laboratory Medicine Angélica Granger P.A.-C. [address] [place] [address] [phone] 06/19/2022 Appointment Laboratory Medicine Angélica Granger P.A.-C. [address] [place] [phone] 07/03/2022 Appointment Laboratory Medicine Angélica Granger P.A.-C. [address] [place] [phone] 07/17/2022 Appointment Laboratory Medicine Angélica Granger P.A.-C. [address] [place] [phone] 07/31/2022 Appointment Laboratory Medicine Angélica Granger P.A.-C. [address] [place] [phone] 08/14/2022 Appointment Laboratory Medicine Angélica Granger P.A.-C. [address] [place] [phone] 08/28/2022 Appointment Laboratory Medicine Angélica Granger P.A.-C. [address] [place] [phone] documented as of this encounter Procedures Procedure [...] SAB Antibody Screen (09/21/2021 2:00 PM CDT) [facility] Time Signature Class II SAB Negative [...] NONE 09/26/2021 10:09 PM CDT DBB8 SAB [id number] Specificity NONE 09/26/2021 10:09 PM CDT DBB8 SAB DQB1 Specificity NONE 09/26/2021 10:09 PM CDT DBB8 SAB DPB1 Specificity NONE 09/26/2021 10:09 PM CDT DBB8 Comment: ----ADDITIONAL INFORMATION---- Method: Luminex Flow Cytometry CLIA: [id number] ??CLIA Sales Support Engineer: KRISTAL MIMS MD,PhD Specimen Anatomical Collection Method Collection Time Receive d Time (Source) Location / / Volume Laterality Blood (Blood, 09/21/2021 2:00 PM 09/26/19 2:41 Venous) CDT PM CDT Resulting Agency Comment Mailed In Specimen Willis Herrera M.D. LAB HLA ORDERABLES Performing Organization Address City/State/ZIP Code Phon e Number [facility] - [address] [place], [place] [address] [facility] [address] [place] [address] [facility] [address] HLA Class I SAB Antibody Screen (09/21/2021 2:00 PM CDT) [facility] Method Time Signature Class I SAB [...] ----ADDITIONAL INFORMATION---- Method: Luminex Flow Cytometry CLIA: [id number] ??CLIA Sales Support Engineer: KRISTAL MIMS MD,PhD Specimen Anatomical Collection Method Collection Time Receive d Time (Source) Location / / Volume Laterality Blood (Blood, 09/21/2021 2:00 PM 09/26/19 22 2:41 Venous) CDT PM CDT Resulting Agency Comment Mailed In Specimen Willis Herrera M.D. LAB HLA ORDERABLES Performing Organization Address City/State/[facility] Code Phon e Number [facility] - [address] [place], [place] [address] [facility] [address] [place] [address] [facility] [address] documented in this encounter Visit Diagnoses Diagnosis Chronic Kidney Disease Pretransplant Recipient Evaluation Exam documented in this encounter Additional Health Concerns Assessment Noted Time PHQ-9 Depression Total Score: 4 11/28/2020 10:17 AM CD T documented as of this encounter Care Teams Armor Officer Relationship Specialty Start Date End Date Elsewhere, Pcp PCP - General Family Medicine 07/29/17 [facility] - Laboratory Medicine 04/12/[address] [address] documented as of this encounter
--- OUTSIDE RECORDS SUMMARY | 2022-05-17 18:30 | XMS_ITS | Encounter Summary ---
:1955 Author Organization [facility] Address [address] [place] [address] Care Team Providers Name Role Phone Elsewhere, Pcp Primary Care Provider Unavailable Encounter Details Date Type Department Care Team Description 09/05/2021 Orders Only Division of Nephrology and Elissa Wilcox A PRN, Hypertension, Jainism C.N.P. 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 [address] [place] [phone] 05/23/2022 Clinical Admitting/Central Communication Scheduling 05/27/2022 Comprehensive Visit Orthopedic Surgery Markus Sams M.D., Ph.D. [address] [place] [phone] 05/29/2022 Office Visit Otorhinolaryngology Dex Matta APRN, C.N.P., M.S.N. [address] [place] [phone] 05/29/2022 Office Visit Otorhinolaryngology Nadeem Maradiaga, P.Murtaza.-Arley., M.S. [address] [place] [address] [phone] 05/31/2022 Appointment Radiology Guilherme Matt MPAS, Jennifer., M.S. [address] [place] [phone] 06/05/2022 Appointment Laboratory Medicine Angélica Granger P.A.-C. [address] [place] [phone] 06/19/2022 Appointment Laboratory Medicine Angélica Granger P.A.-C. [address] [place] [phone] 07/03/2022 Appointment Laboratory Medicine Angélica Granger P.A.-C. [address] [place] [phone] 07/17/2022 Appointment Laboratory Medicine Angélica Granger P.A.-C. [address] [place] [phone] 07/31/2022 Appointment Laboratory Medicine nAgélica Granger P.A.-C. [address] [place] [phone] 08/14/2022 Appointment Laboratory Medicine Angélica Granger P.A.-C. [address] [place] [phone] 08/28/2022 Appointment Laboratory Medicine Angélica Granger P.A.-C. [address] [place] [phone] documented as of this encounter Visit Diagnoses Not on filedocumented in this encounter Additional Health Concerns Assessment Noted Time PHQ-9 Depression Total Score: 4 11/28/2020 10:17 AM CD T documented as of this encounter Care Teams Lens Coating Technician Relationship Specialty Start Date End Date Elsewhere, Pcp PCP - General Family Medicine 07/29/17 [facility] - Laboratory Medicine 04/12/[address] [address] documented as of this encounter
--- OUTSIDE RECORDS SUMMARY | 2022-05-17 18:30 | XMS_ITS | Encounter Summary ---
:1955 Author Organization [facility] Address [address] [place] [address] Care Team Providers Name Role Phone Elsewhere, Pcp Primary Care Provider Unavailable Encounter Details Date Type Department Care Team Description 09/12/2021 Hospital Encounter Department of Trung Plasencia Liver (HCC); Laboratory Medicine Edmundo Stern, Medicati on Therapy Half-Way Not Anticoagulant; in Jimmie Blake M.S. 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 40 mg for 2 weeks 20 mg for 2 weeks 10 mg for 2 weeks then back to 5 mg tacrolimus (PROGRAF) 0.5 TAKE 2 CAPSULES BY 360 capsule 3 10/16/2021 mg capsuleIndications: MOUTH TWICE DAILY Transplant Liver (HCC), Medication Therapy Half-Way Not Anticoagulant torsemide (DEMADEX) 10 Take 6 tablets (60 540 tablet 3 09/0510/16/2021 mg tablet mg total) by mouth daily. valGANciclovir (VALCYTE) TAKE 1 TABLET BY 25 tablet 1 08/0810/13/2021 450 mg MOUTH 2 X PER WEEK. tabletIndications: PLEASE TAKE 450 MG Transplant Liver (HCC), TWICE WEEKLY ON Medication Therapy Long MONDAYS AND Term Not Anticoagulant, THURSDAYS(AFTER Colitis Cytomegalovirus DIALYSIS ON ([facility]) DIALYSIS DAYS). acetaminophen (TYLENOL) Take 1 tablet [...] D Lactobacillus Take 1 capsule by 0 08/15/202109/22 acidophilus capsule mouth 2 (two) times a day with meals. While taking antibiotics to help promote gut health. multivitamin tablet Take 1 tablet by 0 06/18/2013 10/12/2021 mouth daily. Maintenance mycophenolate (CELLCEPT) TAKE 1 TABLET BY 180 tablet 3 11/0610/11/2021 500 mg MOUTH TWICE DAILY tabletIndications: Transplant Liver ([facility]) oxyCODONE (ROXICODONE) 5 Take 1 tablet (5 mg 10 tablet 0 10/13/2021 mg immediate release total) by mouth tabletIndications: Acute every 4 (four) Pain hours as needed for severe pain or score 7-10 of 10 Indication: Acute Pain. predniSONE (DELTASONE) 5 TAKE 1 TABLET(5 MG) 90 tablet 3 10/16/2021 mg tabletIndications: BY MOUTH DAILY Transplant Liver (HCC), Medication Therapy Half-Way Not Anticoagulant UNABLE TO FIND by nasal 0 10/12/2021 (alternating) route 2 (two) times a day. Azelastine 1mg to Sinus Rinse twice daily. [facility] documented as of 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 [address] [place] [phone] 05/23/2022 Clinical Admitting/Central Communication Scheduling 05/27/2022 Comprehensive Visit Orthopedic Surgery Markus Sams M.D., Ph.D. [address] [place] [phone] 05/29/2022 Office Visit Otorhinolaryngology Dex Matta APRN, C.N.P., M.S.N. [address] [place] [phone] 05/29/2022 Office Visit Otorhinolaryngology Nadeem Maradiaga, P.Murtaza.-Arley., M.S. [address] [place] [address] [phone] 05/31/2022 Appointment Radiology Guilherme Matt MPAS, PMaryanne., M.S. [address] [place] [phone] 06/05/2022 Appointment Laboratory Medicine Angélica Granger P.A.-C. [address] [place] [phone] 06/19/2022 Appointment Laboratory Medicine Angélica Granger P.A.-C. [address] [place] [phone] 07/03/2022 Appointment Laboratory Medicine Angélica Granger P.A.-C. [address] [place] [phone] 07/17/2022 Appointment Laboratory Medicine Angélica Granger P.A.-C. [address] [place] [phone] 07/31/2022 Appointment Laboratory Medicine Angélica Granger P.A.-C. [address] [place] [phone] 08/14/2022 Appointment Laboratory Medicine Angélica Granger P.A.-C. [address] [place] [phone] 08/28/2022 Appointment Laboratory Medicine Angélica Granger P.A.-C. [address] [place] [phone] documented as of this encounter Procedures Procedure Name Priority Date/Time Associated Diagnosis Comme nts CMV DNA DETECT/QUANT, Routine 09/12/2021 8:35 Transplant Liver (HCC) Results for this P AM CDT Medication Therapy procedure are in Ways Operator Not the results Anticoagulant section. Colitis Cytomegalovirus (HCC) TACROLIMUS LEVEL, B Routine 09/12/2021 8:35 Transplant L iver (HCC) Results for this AM CDT Medication Therapy procedure are in Ways Operator Not the results Anticoagulant section. Colitis Cytomegalovirus (HCC) CBC WITHOUT Routine 09/12/2021 8:35 Transplant Liver (HCC) Results for this DIFFERENTIAL, B AM CDT Medication Therapy proced ure are in Ways Operator Not the results Anticoagulant section. Colitis Cytomegalovirus (HCC) GLUCOSE, FASTING, S/P Routine 09/12/2021 8:35 Transplant Liver (HCC) Results for this AM CDT Medication Therapy procedure are in Half-Way Not the results Anticoagulant section. Colitis Cytomegalovirus (HCC) COMPREHENSIVE Routine 09/12/2021 8:35 Transplant Liver (HCC) Results for this METABOLIC PANEL, S/P AM CDT Medication Therapy p rocedure are in Ways Operator Not the results Anticoagulant section. Colitis Cytomegalovirus (HCC) documented in this encounter Results (ABNORMAL) Tacrolimus, B (09/12/2021 8:35 AM CDT) P athologist Signature Tacrolimus, B 1.6 (L) 5.0-15.0 2021 SDSC (Trough) 10:37 AM CDT ng/mL Comment: ----ADDITIONAL [...] Laterality Blood (Blood, 09/12/2021 8:35 AM 09/14/19 7:27 Venous) CDT AM CDT Trung Plasencia P.A.-C., M.S. LAB BLOOD NON ADD-ON Performing Organization Address City/State/ZIP Code Phon e Number [facility] [address] [place], [place] [address] SUPPORT [facility] [address] Laboratory Medicine and Pathology [address] [place] CMV DNA Detect / Quant, Plasma (09/12/2021 8:35 AM CDT) Patholo gist Method Time Signature CMV DNA Undetected Undetected 2021 [facility] Detect/Quant, IU/mL 2:23 PM CDT P Comment: Result in log IU/mL is Undetected. ----ADDITIONAL INFORMATION---- The quantification range of this assay i s 35 to 10,000,000 IU/mL (1.54 log to 7.00 log IU/mL). Testing was performed u sing the tika CMV test ([employer] with the tika 6800 System. Specimen Anatomical Collection Method Collection Time Receive d Time (Source) Location / / Volume Laterality Blood (Blood, 09/12/2021 8:35 AM 09/14/19 7:13 Venous) CDT AM CDT Trung Plasencia P.A.-C., M.S. LAB MICROBIOLOGY - BLOOD O RDERABLES Performing Organization Address City/[facility]/ZIP Code Phon e Number [facility] [address] [place], [place] [address] [place], [place] [address]. [place] [address] Laboratory Medicine and Pathology [address] [place] (ABNORMAL) Glucose, Fasting (09/12/2021 8:35 AM CDT) P athologist Signature Glucose, P 124 (H) 70 - 100 09/12/2021 CNFL mg/dL 9:04 AM CDT Last Intake 17 hr 09/12/2021 CNFL 8:37 AM CDT Specimen Anatomical Collection Method Collection Time Receive d Time (Source) Location / / Volume Laterality Blood (Blood, 09/12/2021 8:35 AM 09/13/19 22 8:37 Venous) CDT AM CDT Trung Plasencia P.A.-C., M.S. LAB BLOOD NON ADD-ON Performing Organization Address City/[facility] Code Phon e Number [address] [address] [facility] [place] [address] System in [address] (ABNORMAL) Comprehensive Metabolic Panel (09/12/2021 8:35 [...] eGFR-Black/Afri 19 (L) >=60 09/12/2021 [facility] can Japanese mL/min/BSA 9:06 AM CDT Comment: ----ADDITIONAL INFORMATION---- Estimated GFR calculated using the 2009 CKD_EPI creatinine equation. eGFR Non-Black/ 16 (L) >=60 mL/min/BSA 09/12/2021 9:06 AM CDT [facility] Japanese Comment: ----ADDITIONAL INFORMATION---- Estimated GFR calculated using [...] M.S. LAB BLOOD ADD-ON Performing Organization Address [facility] Phon e Number [address] [address] [facility] [place] [address] System in [address] (ABNORMAL) CBC without Differential (09/12/2021 8:35 AM CDT) [facility] gist Method Time Signature Hemoglobin 10.7 [...] 8:37 Venous) CDT AM CDT Trung Plasencia P.A.-C. MDemetriusS. LAB BLOOD ADD-ON Performing Organization Address City/[facility] Code Phon e Number [facility]- [address] [place] [address] [facility] [place] [address] System in [address] documented in this encounter Visit Diagnoses Diagnosis Transplant Liver (HCC) Medication Therapy Ways Operator Not Anticoa gulant Colitis Cytomegalovirus (HCC) documented in this encounter Additional Health Concerns Assessment Noted Time PHQ-9 Depression Total Score: 4 11/28/2020 10:17 AM CD T documented as of this encounter Care Teams Corporate Librarian Relationship Specialty Start Date End Date Elsewhere, Pcp PCP - General Family Medicine 07/29/17 [facility] - Laboratory Medicine 04/12/20 [place] [address] documented as of this encounter
--- OUTSIDE RECORDS SUMMARY | 2022-05-17 18:30 | XMS_ITS | Encounter Summary ---
:1955 Author Organization [facility] Address [address] [place] [address] Care Team Providers Name Role Phone Elsewhere, Pcp Primary Care Provider Unavailable Reason for Visit Reason Comments Txp Tacrolimus Adjustment Protocol - Liver Encounter Details Date Type Department Care Team Description 08/30/2021 Clinical Crut Moss, Josep [facility] Communication Center for Yolie R, Adjustment Transplantation and R.N. 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 - 08/30/2021 4:27 PM CST Tacrolimus level within goal range of 2-4, per Tacrolimus Adjustment Protocol no dose change recommended. Other lab results received and reviewed, stable trends, continue monitoring monthly. TITATIVE DEVELOPER documented in 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 [address] [place] [address] [phone] 05/23/2022 Clinical Admitting/Central Communication Scheduling 05/27/2022 Comprehensive Visit Orthopedic Surgery Markus Sams M.D., Ph.D. [address] [place] [phone] 05/29/2022 Office Visit Otorhinolaryngology Dex Matta APRN, C.N.P., M.S.N. [address] [place] [phone] 05/29/2022 Office Visit Otorhinolaryngology Nadeem Maradiaga P.A.-C., M.S. [address] [place] [phone] 05/31/2022 Appointment Radiology Guilherme Matt MPAS, P.A.-C., M.S. [address] [place] [phone] 06/05/2022 Appointment Laboratory Medicine Angélica Granger P.A.-C. [address] [place] [phone] 06/19/2022 Appointment Laboratory Medicine Angélica Granger P.A.-C. [address] [place] [phone] 07/03/2022 Appointment Laboratory Medicine Angélica Granger P.A.-C. [address] [place] [phone] 07/17/2022 Appointment Laboratory Medicine Angélica Granger P.A.-C. [address] [place] [phone] 07/31/2022 Appointment Laboratory Medicine Angélica Granger P.A.-C. [address] [place] [phone] 08/14/2022 Appointment Laboratory Medicine Angélica Granger P.A.-C. [address] [place] [phone] 08/28/2022 Appointment Laboratory Medicine Angélica Granger P.A.-C. [address] [place] [phone] documented as of this encounter Visit Diagnoses Not on filedocumented in this encounter Additional Health Concerns Assessment Noted Time PHQ-9 Depression Total Score: 4 11/28/2020 10:17 AM CD T documented as of this encounter Care Teams Tow Car Driver Relationship Specialty Start Date End Date Elsewhere, Pcp PCP - General Family Medicine 07/29/17 [facility] - Laboratory Medicine 04/12/[address] [address] documented as of this encounter
--- OUTSIDE RECORDS SUMMARY | 2022-05-17 18:30 | XMS_ITS | Encounter Summary ---
:1955 Author Organization [facility] Address [address] [place] [address] Care Team Providers Name Role Phone Elsewhere, Pcp Primary Care Provider Unavailable Encounter Details Date Type Department Care Team Description 09/19/2021 Hospital Encounter Department of Trung Plasencia Liver (HCC); Laboratory Medicine Edmundo Stern, Medicati on Therapy Snf Not Anticoagulant; in Jimmie Blake M.S. 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 40 mg for 2 weeks 20 mg for 2 weeks 10 mg for 2 weeks then back to 5 mg tacrolimus (PROGRAF) 0.5 TAKE 2 CAPSULES BY 360 capsule 3 10/16/2021 mg capsuleIndications: MOUTH TWICE DAILY Transplant Liver ([facility]), Medication Therapy Snf Not Anticoagulant torsemide (DEMADEX) 10 Take 6 tablets (60 540 tablet 3 09/0510/16/2021 mg tablet mg total) by mouth daily. valGANciclovir (VALCYTE) TAKE 1 TABLET BY 25 tablet 1 08/0810/13/2021 450 mg MOUTH 2 X PER WEEK. tabletIndications: PLEASE TAKE 450 MG Transplant Liver ([facility]), TWICE WEEKLY ON Medication Therapy Long MONDAYS AND Term Not Anticoagulant, THURSDAYS(AFTER Colitis Cytomegalovirus DIALYSIS ON ([facility]) DIALYSIS DAYS). acetaminophen (TYLENOL) Take 1 tablet [...] MOUTH TWICE DAILY tabletIndications: Transplant Liver ([facility]) oxyCODONE (ROXICODONE) 5 Take 1 tablet (5 mg 10 tablet 0 10/13/2021 mg immediate release total) by mouth tabletIndications: Acute every 4 (four) Pain hours as needed for severe pain or score 7-10 of 10 Indication: Acute Pain. predniSONE (DELTASONE) 5 TAKE 1 TABLET(5 MG) 90 tablet 3 10/16/2021 mg tabletIndications: BY MOUTH DAILY Transplant Liver (HCC), Medication Therapy Cruise Counselor Not Anticoagulant UNABLE TO FIND by nasal 0 10/12/2021 (alternating) route 2 (two) times a day. Azelastine 1mg to Sinus Rinse twice daily. [facility] documented as of 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 [address] [place] [phone] 05/23/2022 Clinical Admitting/Central Communication Scheduling 05/27/2022 Comprehensive Visit Orthopedic Surgery Markus Sams M.D., Ph.D. [address] [place] [phone] 05/29/2022 Office Visit Otorhinolaryngology Dex Matta APRN, C.N.P., M.S.N. [address] [place] [address] [phone] 05/29/2022 Office Visit Otorhinolaryngology Nadeem Maradiaga, P.A.-C., M.S. [address] [place] [address] [phone] 05/31/2022 Appointment Radiology Guilherme Matt MPAS, P.Murtaza.Marie., M.S. [address] [place] [phone] 06/05/2022 Appointment Laboratory Medicine Angélica Granger P.A.-C. [address] [place] [phone] 06/19/2022 Appointment Laboratory Medicine Angélica Granger P.A.-C. [address] [place] [phone] 07/03/2022 Appointment Laboratory Medicine Angélica Granger P.A.-C. [address] [place] [phone] 07/17/2022 Appointment Laboratory Medicine Angélica Granger P.A.-C. [address] [place] [phone] 07/31/2022 Appointment Laboratory Medicine Angélica Granger P.A.-C. [address] [place] [phone] 08/14/2022 Appointment Laboratory Medicine Angélica Granger P.A.-C. [address] [place] [phone] 08/28/2022 Appointment Laboratory Medicine Angélica Granger P.A.-C. [address] [place] [phone] documented as of this encounter Procedures Procedure [...] CDT Medication Therapy p rocedure are in Cruise Counselor Not the results Anticoagulant section. Colitis [...] LAB BLOOD NON ADD-ON Performing Organization Address [facility]/State/[facility] Code Phon e Number [id number] [place] [address] [place] [address] System [address] (ABNORMAL) CBC without Differential (09/19/2021 8:40 [...] 09/20/19 22 8:41 Venous) CDT AM CDT Trnug Plasencia P.A.-C., M.S. LAB BLOOD ADD-ON Performing Organization Address City/[facility] Code Phon e Number [address] [address] [place] [address] System [address] (ABNORMAL) Tacrolimus, B (09/19/2021 8:39 AM CDT) athologist Signature Tacrolimus, B 1.5 (L) 5.0-15.0 09/20/2021 [facility] (Trough) 11:46 AM CDT ng/mL Comment: ----ADDITIONAL [...] and its performa nce characteristics determined by [facility] in a manner consistent with CLIA requirements. [...] [facility] [address] [place], [place] [address] [place] [address] [place] [address] Laboratory Medicine and Pathology [address] [place] (ABNORMAL) CMV DNA Detect / Quant, Plasma (09/19/2021 8:39 AM CDT) Patholo gist Method Time Signature CMV DNA <35 (A) Undetected 09/20/2021 [facility] Detect/Quant, IU/mL 12:59 AM CDT P Comment: [...] performed u sing the tika CMV test ([employer] with the tika Brandicted0 System. Specimen Anatomical Collection Method Collection Time Receive d Time (Source) Location / / Volume Laterality Blood (Blood, 09/19/2021 8:39 AM 09/20/19 7:56 Venous) CDT PM CDT Trung Plasencia P.A.-C., M.S. LAB MICROBIOLOGY - BLOOD O RDERABLES Performing Organization Address City/State/ZIP Code Phon e Number [facility] [address] [place], [place] [address] SUPPORT CENTER [facility] [place] [address] Laboratory Medicine and Pathology [address] [...] eGFR-Black/Afri 17 (L) >=60 09/19/2021 CNFL can [place] mL/min/BSA 9:14 AM CDT Comment: ----ADDITIONAL INFORMATION---- Estimated GFR calculated using the 2009 CKD_EPI creatinine equation. eGFR Non-Black/ <15 (L) >=60 mL/min/BSA 09/19/2021 9:14 AM CDT CNFL [place] Comment: ----ADDITIONAL INFORMATION---- Estimated GFR calculated using [...] Laterality Blood (Blood, 09/19/2021 8:39 AM 09/20/19 22 8:41 Venous) CDT AM CDT Trung Plasencia P.A.-C., M.S. LAB BLOOD ADD-ON Performing Organization Address City/State/ZIP Code Phon e Number [facility] [address] [place] [id number] [place] [address] System in [place] [phone] [place] [address] documented in this encounter Visit Diagnoses Diagnosis Transplant Liver (HCC) Medication Therapy Cruise Counselor Not Anticoa gulant Colitis Cytomegalovirus (HCC) documented in this encounter Additional Health Concerns Assessment Noted Time PHQ-9 Depression Total Score: 4 11/28/2020 10:17 AM CD T documented as of this encounter Care Teams Maternal Child Nurse Relationship Specialty Start Date End Date Elsewhere, Pcp PCP - General Family Medicine 07/29/17 [facility] - Laboratory Medicine 04/12/[address] [address] documented as of this encounter
--- OUTSIDE RECORDS SUMMARY | 2022-05-17 18:30 | XMS_ITS | Encounter Summary ---
:1955 Author Organization [facility] Address [address] [place] [address] Care Team Providers Name Role Phone Elsewhere, Pcp Primary Care Provider Unavailable Reason for Referral Outpatient (Routine) - Closed Specialty Diagnoses / Procedures Referred By Contact Refer red To Contact Diagnoses Transplant Liver (HCC) Medication Therapy Alf Not Anticoagulant Otoniel Linares M.D. 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 [address] [place] [phone] 05/23/2022 Clinical Admitting/Central Communication Scheduling 05/27/2022 Comprehensive Visit Orthopedic Surgery Markus Sams M.D., Ph.D. [address] [place] [phone] 05/29/2022 Office Visit Otorhinolaryngology Dex Matta APRN, C.N.PDemetrius, M.S.N. [address] [place] [phone] 05/29/2022 Office Visit Otorhinolaryngology Nadeem Maradiaga P.A.-C., M.S. [address] [place] [phone] 05/31/2022 Appointment Radiology Guilherme Matt MPAS, P.A.-C., M.S. [address] [place] [phone] 06/05/2022 Appointment Laboratory Medicine Angélica Granger P.A.-C. [address] [place] [phone] 06/19/2022 Appointment Laboratory Medicine Angélica Granger P.A.-C. [address] [place] [phone] 07/03/2022 Appointment Laboratory Medicine Angélica Granger P.A.-C. [address] [place] [phone] 07/17/2022 Appointment Laboratory Medicine Angélica Granger P.A.-C. [address] [place] [phone] 07/31/2022 Appointment Laboratory Medicine Angélica Granger P.A.-C. [address] [place] [phone] 08/14/2022 Appointment Laboratory Medicine Angélica Gragner P.A.-C. [address] [place] [phone] 08/28/2022 Appointment Laboratory Medicine Bárbara Angélica Stern P.A.-C. [address] [place] [phone] documented as of this encounter Results BMD [...] Mineral Density (BMD) analysis perf ormed on AFTER-MOUSEXA with serial number [id number]. ? COMPARISON: Serial Comparisons Left Total Hip [...] including images and graphs, is available in [employer]. In the absence of other causes of [...] the calculated ten year probability of f racswati is: FRAX Risk Factors: Glucocorticoids (Corporate Responsibility Officer surinder), Secondary Osteoporosis FRAX (10 yr probability) Major Osteoporotic Fracture: ??10.3 % Hip Fracture: ?2.5 % ? Today's spine scan is considered non-barbi gnostic according to ISCD Guidelines. Procedure Note Nicholas Sanabria M.D. - 12/05/2021For matting of this note might be different from the original. EXAM: BMD BONE DENSITY SPINE HIPS Bone Mineral Density (BMD) analysis perf ormed on Ginx with serial number [id number]. COMPARISON: Serial Comparisons Left Total Hip results: [...] including images and graphs, is available in [employer]. In the absence of other causes of [...] image stored in the BMD study in [employer]), the calculated ten year probability of f racture is: FRAX Risk Factors: Glucocorticoids (Corporate Responsibility Officer surinder), Secondary Osteoporosis FRAX (10 yr probability) Major Osteoporotic Fracture: 10.3 % Hip Fracture: 2.5 % Today's spine scan is considered non-barbi gnostic according to ISCD Guidelines. IMPRESSION: Low bone density (Osteopenia) DualFemur (region: Neck Right) Otoniel HEREDIA DXA PROCEDURES CMV DNA Detect / Quant, Plasma (12/03/2021 7:56 AM CDT) Patholo gist Method Time Signature CMV DNA Undetected Undetected 12/04/2021 [facility] Detect/Quant, IU/mL 4:00 PM CDT P Comment: Result in log IU/mL is Undetected. ----ADDITIONAL INFORMATION---- The quantification range of this assay i s 35 to 10,000,000 IU/mL (1.54 log to 7.00 log IU/mL). Testing was performed u sing the tika CMV test ([employer] with the tika 6800 System. Specimen Anatomical Collection Method Collection Time Receive d Time (Source) Location / / Volume Laterality Blood (Blood, 12/03/2021 7:56 AM 12/05/19 7:15 Venous) CDT AM CDT Otoniel Linares M.D. LAB MICROBIOLOGY - BLOOD ORD ERABLES Performing Organization Address City/State/ZIP Code Phon e Number [facility] [address] [place] [address] SUPPORT CENTER [facility] [place] [address] Laboratory Medicine and Pathology [address] 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
--- OUTSIDE RECORDS SUMMARY | 2022-05-17 18:30 | XMS_ITS | Encounter Summary ---
:1955 Author Organization [facility] Address [address] [place] [address] Care Team Providers Name Role Phone Elsewhere, Pcp Primary Care Provider Unavailable Reason for Visit Reason Comments Labs Only Encounter Details Date Type Department Care Team Description 09/14/2021 Clinical Communication Irena Game[facility] Labs Only Center for R, R.N. 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 - 09/17/2021 11:20 AM CDT Provider who reviewed results: Trung Plasencia Recommendations: Stop valganciclovir. Continue checking CMV for 2 weeks. If levels remain undetected, we can stop checking CMV levels unless he becomes symptomatic. Labs are due: 1 week Patient Online Services message was initiated by a [facility] Registered Nurse for report of test [...] R.N. *All labs are now found in [facility] - Lab - Flowsheets. For further review of labs, please review there or under Synopsis* documented in 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 [address] [place] [phone] 05/23/2022 Clinical Admitting/Central Communication Scheduling 05/27/2022 Comprehensive Visit Orthopedic Surgery Markus Sams M.D., Ph.D. [address] [place] [phone] 05/29/2022 Office Visit Otorhinolaryngology Dex Matta APRN, C.N.P., M.S.N. [address] [place] [address] [phone] 05/29/2022 Office Visit Otorhinolaryngology Nadeem Maradiaga, P.Murtaza.-C., M.S. [address] [place] [phone] 05/31/2022 Appointment Radiology Guilherme Matt MPAS, PEdgar.Marie., M.S. [address] [place] [phone] 06/05/2022 Appointment Laboratory Medicine Angélica Granger P.A.-C. [address] [place] [phone] 06/19/2022 Appointment Laboratory Medicine Angélica Granger P.A.-C. [address] [place] [phone] 07/03/2022 Appointment Laboratory Medicine Angélica Granger P.A.-C. [address] [place] [phone] 07/17/2022 Appointment Laboratory Medicine Angélica Granger P.A.-C. [address] [place] [address] [phone] 07/31/2022 Appointment Laboratory Medicine Angélica Granger P.A.-C. [address] [place] [phone] 08/14/2022 Appointment Laboratory Medicine Angélica Granger P.A.-C. [address] [place] [address] [phone] 08/28/2022 Appointment Laboratory Medicine Angélica Granger P.A.-C. [address] [place] [address] [phone] documented as of this encounter Visit Diagnoses Not on filedocumented in this encounter Additional Health Concerns Assessment Noted Time PHQ-9 Depression Total Score: 4 11/28/2020 10:17 AM CD T documented as of this encounter Care Teams Insurance Defense Attorney Relationship Specialty Start Date End Date Elsewhere, Pcp PCP - General Family Medicine 07/29/17 [facility] - Laboratory Medicine 04/12/[address] [address] documented as of this encounter
--- OUTSIDE RECORDS SUMMARY | 2022-05-17 18:30 | XMS_ITS | Encounter Summary ---
:1955 Author Organization [facility] Address [address] [place] [address] Care Team Providers Name Role Phone Elsewhere, Pcp Primary Care Provider Unavailable Reason for Referral Outpatient (Routine) - Closed Specialty Diagnoses / Procedures Referred By Contact Refer red To Contact Diagnoses Failure Renal End Stage (HCC) Follow Up Surgery Exam Fistula Arteriovenous Acquired (HCC) Dario Shafer M.D., [facility] Procedures US Hemodialysis Fistula-Graft Right Ph.D. 200 [place], [place] [phone] Referral ID Status Reason Start Date Expiration Date Visits Requ ested Visits Authorized [id number] Closed 07/24/2021 07/24/2022 1 1 Reason for Visit Outpatient (Routine) - Closed Specialty Diagnoses / Procedures Referred By Contact Refer red To Contact Diagnoses Failure Renal End Stage (HCC) Follow Up Surgery Exam Fistula Arteriovenous Acquired (HCC) Dario Shafer M.D., [facility] Procedures US Hemodialysis Fistula-Graft Right Ph.D. 200 [place], [place] [phone] Referral ID Status Reason Start Date Expiration Date Visits Requ ested Visits Authorized [id number] Closed 07/24/2021 07/24/2022 1 1 Encounter Details Date Type Department Care Team Description 09/11/2021 Hospital Encounter Department of Dario Shafer Failure Renal End Stage (HCC); Radiology, Kd Azevedo M.D., Ph.D. 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 40 mg for 2 weeks 20 mg for 2 weeks 10 mg for 2 weeks then back to 5 mg tacrolimus (PROGRAF) 0.5 TAKE 2 CAPSULES BY 360 capsule 3 10/16/2021 mg capsuleIndications: MOUTH TWICE DAILY Transplant Liver (HCC), Medication Therapy Water Resource Agent Not Anticoagulant torsemide (DEMADEX) 10 Take [...] D Lactobacillus Take 1 capsule by 0 08/15/2021 [...] MOUTH DAILY Transplant Liver (HCC), Medication Therapy Water Resource Agent Not Anticoagulant UNABLE TO FIND by nasal 0 10/12/2021 (alternating) route 2 (two) times a day. Azelastine 1mg to Sinus Rinse twice daily. [facility] documented as of 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 [address] [place] [phone] 05/23/2022 Clinical Admitting/Central Communication Scheduling 05/27/2022 Comprehensive Visit Orthopedic Surgery Markus Sams M.D., Ph.D. [address] [place] [phone] 05/29/2022 Office Visit Otorhinolaryngology Dex Matta APRN, C.N.P., M.S.N. [address] [place] [phone] 05/29/2022 Office Visit Otorhinolaryngology Nadeem Maradiaga P.A.-C., M.S. [address] [place] [phone] 05/31/2022 Appointment Radiology Guilherme Matt MPAS, P.A.-C., M.S. [address] [place] [phone] 06/05/2022 Appointment Laboratory Medicine Angélica Granger P.A.-C. [address] [place] [phone] 06/19/2022 Appointment Laboratory Medicine Angélica Granger P.A.-C. [address] [place] [phone] 07/03/2022 Appointment Laboratory Medicine Angélica Granger P.A.-C. [address] [place] [phone] 07/17/2022 Appointment Laboratory Medicine Angélica Granger P.A.-C. [address] [place] [phone] 07/31/2022 Appointment Laboratory Medicine Angélica Granger P.A.-C. [address] [place] [phone] 08/14/2022 Appointment Laboratory Medicine Angélica Granger P.A.-C. [address] [place] [phone] 08/28/2022 Appointment Laboratory Medicine Emiliejeri Angélica Edmundo Stern [address] [place] [phone] documented as of this encounter Procedures Procedure [...] documented as of this encounter Care Teams Lot Associate Relationship Specialty Start Date End Date Elsewhere, Pcp PCP - General Family Medicine 07/29/17 [facility] - Laboratory Medicine 04/12/[address] [address] documented as of this encounter
--- OUTSIDE RECORDS SUMMARY | 2022-05-17 18:30 | XMS_ITS | Encounter Summary ---
:1955 Author Organization [facility] Address [address] [place] [address] Care Team Providers Name Role Phone Elsewhere, Pcp Primary Care Provider Unavailable Encounter Details Date Type Department Care Team Description 09/05/2021 Hospital Encounter Department of Trung Plasencia Liver (HCC); Laboratory Medicine Edmundo Stern, Medicati on Therapy [facility] Not Anticoagulant; in Jimmie Blake M.S. 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 vancomycin (VANCOCIN) Take 1 capsule (125 42 [...] MOUTH DAILY Transplant Liver (HCC), Medication Therapy Candy Starch Mold Printer Not Anticoagulant UNABLE TO FIND by nasal 0 10/12/2021 (alternating) route 2 (two) times a day. Azelastine 1mg to Sinus Rinse twice daily. [facility] documented as of 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 [address] [place] [phone] 05/23/2022 Clinical Admitting/Central Communication Scheduling 05/27/2022 Comprehensive Visit Orthopedic Surgery Markus Sams M.D., Ph.D. [address] [place] [phone] 05/29/2022 Office Visit Otorhinolaryngology Dex Matta APRN, C.N.P., M.S.N. [address] [place] [phone] 05/29/2022 Office Visit Otorhinolaryngology Nadeem Maradiaga, P.A.-C., M.S. [address] [place] [phone] 05/31/2022 Appointment Radiology Guilherme Matt MPAS, P.Murtaza.Marie., M.S. [address] [place] [phone] 06/05/2022 Appointment Laboratory Medicine Angélica Granger P.A.-C. [address] [place] [phone] 06/19/2022 Appointment Laboratory Medicine Angélica Granger P.A.-C. [address] [place] [phone] 07/03/2022 Appointment Laboratory Medicine Angélica Granger P.A.-C. [address] [place] [phone] 07/17/2022 Appointment Laboratory Medicine Angélica Granger P.A.-C. [address] [place] [phone] 07/31/2022 Appointment Laboratory Medicine Angélica Granger P.A.-C. [address] [place] [phone] 08/14/2022 Appointment Laboratory Medicine Angélica Granger P.A.-C. [address] [place] [phone] 08/28/2022 Appointment Laboratory Medicine Angélica Granger P.A.-C. [address] [place] [phone] documented as of this encounter Procedures Procedure Name Priority Date/Time Associated Diagnosis Comme nts TACROLIMUS LEVEL, B Routine 09/05/2021 8:24 Transplant L iver (HCC) Results for this AM CDT Medication Therapy procedure are in [facility] Not the results Anticoagulant section. Colitis Cytomegalovirus (HCC) CBC WITHOUT Routine 09/05/2021 8:24 Transplant Liver (HCC) Results for this DIFFERENTIAL, B AM CDT Medication Therapy proced ure are in [facility] Not the results Anticoagulant section. Colitis Cytomegalovirus (HCC) GLUCOSE, FASTING, S/P Routine 09/05/2021 8:24 Transplant Liver (HCC) Results for this AM CDT Medication Therapy procedure are in Candy Starch Mold Printer Not the results Anticoagulant section. Colitis Cytomegalovirus (HCC) COMPREHENSIVE Routine 09/05/2021 8:24 Transplant Liver (HCC) Results for this METABOLIC [...] and its performa nce characteristics determined by [facility] in a manner consistent with [...] Code Phon e Number [facility] [address] [place], [place] [address] [facility] [place] [address] Laboratory Medicine and Pathology [address] [place] (ABNORMAL) Glucose, Fasting (09/05/2021 8:24 AM CDT) athologist Signature Glucose, P 112 (H) 70 - 100 09/05/2021 [facility] mg/dL 8:49 AM CDT Last Intake 15 hr 09/05/2021 [facility] 8:24 AM CDT Specimen Anatomical Collection Method Collection Time Receive d Time (Source) Location / / Volume Laterality Blood (Blood, 09/05/2021 8:24 AM 09/06/19 8:24 Venous) CDT AM CDT Trung Plasencia P.A.-C. MDemetriusS. LAB BLOOD NON ADD-ON Performing Organization Address City/State/ZIP Code Phon e Number [facility]- [address] [place] [phone] [place] [address] System in [address] (ABNORMAL) Comprehensive Metabolic Panel (09/05/2021 8:24 [...] eGFR-Black/Afri 20 (L) >=60 09/05/2021 [facility] can Palestinian mL/min/BSA 8:52 AM CDT Comment: ----ADDITIONAL INFORMATION---- Estimated GFR calculated using the 2009 CKD_EPI creatinine equation. eGFR Non-Black/ 17 (L) >=60 mL/min/BSA 09/05/2021 8:52 AM CDT [facility] Palestinian Comment: ----ADDITIONAL INFORMATION---- Estimated GFR calculated using [...] City/State/ZIP Code Phon e Number [facility]- [address] [place] [phone] [place] [address] [place] [address] System [address] (ABNORMAL) CBC without Differential (09/05/2021 8:24 AM CDT) [facility] Method Time Signature Hemoglobin 10.6 (L) 13.2 [...] M.S. LAB BLOOD ADD-ON Performing Organization Address [facility] Phon e Number [address] [address] [place] [address] System in [address] CMV DNA Detect / Quant, Plasma (09/05/2021 8:23 AM CDT) [facility] Method Time Signature CMV DNA Undetected Undetected 09/06/2021 [facility] Detect/Quant, IU/mL 5:49 PM CDT P Comment: Result in log IU/mL is Undetected. ----ADDITIONAL INFORMATION---- The quantification range of this assay i s 35 to 10,000,000 IU/mL (1.54 log to 7.00 log IU/mL). Testing was performed u sing the tika CMV test ([employer] with the tika 6800 System. Specimen Anatomical Collection Method Collection Time Receive d Time (Source) Location / / Volume Laterality Blood (Blood, 09/05/2021 8:23 AM 09/07/19 22 7:08 Venous) CDT AM CDT Trung Plasencia P.A.-C., M.S. LAB MICROBIOLOGY - BLOOD O RDERABLES Performing Organization Address City/[facility] Phon e Number [facility] [address] [place] [address] [address] [place] [place] [address] Laboratory Medicine and Pathology [address] [place] documented in this encounter Visit Diagnoses Diagnosis Transplant Liver (HCC) Medication Therapy Candy Starch Mold Printer Not Anticoa gulant Colitis Cytomegalovirus (HCC) documented in this encounter Additional Health Concerns Assessment Noted Time PHQ-9 Depression Total Score: 4 11/28/2020 10:17 AM CD T documented as of this encounter Care Teams Weapons Electrical Engineering Officer Relationship Specialty Start Date End Date Elsewhere, Pcp PCP - General Family Medicine 07/29/17 [facility] - Laboratory Medicine 04/12/20 [place] [phone] documented as of this encounter
--- OUTSIDE RECORDS SUMMARY | 2022-05-17 18:30 | XMS_ITS | Encounter Summary ---
:1955 Author Organization [facility] Address [address] [place] [address] Care Team Providers Name Role Phone Elsewhere, Pcp Primary Care Provider Unavailable Reason for Visit Outpatient (Routine) - Closed Specialty Diagnoses / Procedures Referred By Contact Refer red To Contact Nephrology and Dario Shafer [place] [facility] M.D., Ph.D. [address] [place] [address] Referral ID Status Reason Start Date Expiration Date Visits Requ ested Visits Authorized [id number] Closed 07/24/2021 07/24/2022 1 1 Encounter Details Date Type Department Care Team Description 09/11/2021 Nurse Only Division of Nephrology and Dario Del Rio M.D., Ph.D. [address] [place] [phone] Hypertension in [facility], Ryan Hauser, RDemetriusNDemetrius [place] [address] [place] [phone] Social History Tobacco Use Types Packs/Day [...] 12/15/2021 organizations such as holiness groups, unions, fraGlasses Direct or athletic groups, or school groups? 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 - 09/11/2021 2:15 PM CDT REFERRAL Dario Victor M.D. CHIEF COMPLAINT/PURPOSE OF VISIT REASON FOR REFERRAL: ??7 week follow-up post AV fistula creation HISTORY OF PRESENT ILLNESS ACCESS: ??[place] Arterial Venous Fistula ?Date placed - 07/24/21 ?Provider - Dario Victor M.D. LOCATION OF ACCESS: ??Right brachial cephalic PERTINENT PROCEDURAL HISTORY: ??Patient returning for 7 week follow up of his right brachial cephalic AV fistula. Dialyzes on a Friday, Friday, Friday schedule at [facility] via right palindrome catheter. ??Please see [...] the access team for tomorrow to notify [facility] dialysis unit that they may begin cannulation when the fistula is 8 weeks old on 09/18/21 (since [facility] is a [facility]). ?? documented in this encounter Plan of Treatment Upcoming Encounters Date Type Specialty Care Team Description 05/22/2022 Appointment Laboratory Medicine Angélica Granger P.ASky [address] [place] [phone] 05/23/2022 Clinical Admitting/Central Communication Scheduling 05/27/2022 Comprehensive Visit Orthopedic Surgery Markus Sams M.D., Ph.D. [address] [place] [phone] 05/29/2022 Office Visit Otorhinolaryngology Dex Matta APRN, C.N.P., M.S.N. [address] [place] [phone] 05/29/2022 Office Visit Otorhinolaryngology Nadeem Maradiaga P.A.-C., M.S. [address] [place] [phone] 05/31/2022 Appointment Radiology Guilherme Matt MPAS, P.A.-C., M.S. [address] [place] [phone] 06/05/2022 Appointment Laboratory Medicine Angélica Granger P.A.-C. [address] [place] [phone] 06/19/2022 Appointment Laboratory Medicine Angélica Granger P.A.-C. [address] [place] [phone] 07/03/2022 Appointment Laboratory Medicine Angélica Granger P.A.-C. [address] [place] [phone] 07/17/2022 Appointment Laboratory Medicine Angélica Granger P.A.-C. [address] [place] [phone] 07/31/2022 Appointment Laboratory Medicine Angélica Granger P.A.-C. [address] [place] [phone] 08/14/2022 Appointment Laboratory Medicine Angélica Granger P.A.-C. [address] [place] [phone] 08/28/2022 Appointment Laboratory Medicine Angélica Granger P.A.-C. [address] [place] [phone] documented as of this encounter Visit Diagnoses Not on filedocumented in this encounter Additional Health Concerns Assessment Noted Time PHQ-9 Depression Total Score: 4 11/28/2020 10:17 AM CD T documented as of this encounter Care Teams Acting Section Chief Relationship Specialty Start Date End Date Elsewhere, Pcp PCP - General Family Medicine 07/29/17 [facility] - Laboratory Medicine 04/12/[address] [phone] documented as of this encounter
--- OUTSIDE RECORDS SUMMARY | 2022-05-17 18:31 | XMS_ITS | Encounter Summary ---
:1955 Author Organization [facility] Address [address] [place] [address] Care Team Providers Name Role Phone Elsewhere, Pcp Primary Care Provider Unavailable Reason for Visit Reason Comments Phone Contact Encounter Details Date Type Department Care Team Description 08/24/2021 Clinical Communication Curt Loera, Phone Contact Center for Juanjo Becerril and RSteve, C.C.T. C. Clinical Regeneration [address] [facility] in [place], [place] [address] [place] [phone] [place], [place] [phone] (Work) [phone] Social History Tobacco Use Types Packs/Day Years [...] at Date Recorded Male 05/16/2020 4:27 PM CHICKEN CUTTER documented as of this encounter Miscellaneous Notes Telephone Encounter - Camilla Gan - 08/29/2021 2:30 PM CST This Osm is complete. They will fax the [phone] over this afternoon. KEN CUTTER Telephone Encounter - Patricia Pinto R.N., C.C.T.C. - 08/29/2021 11:22 AM CST Bruce Singh [phone] Requestin form ??? Specifically looking for: dialysis start date Outside Facility: ??? Name: [facility] in [place] ??? Address: ? Fax: KEN CUTTER Telephone Encounter - Patricia Pinto R.N., C.C.T.C. - 08/29/2021 11:19 AM CST Information Discussed I let patient know that I have mailed to him his most recent [facility] status letter. I explained that heis active on the waiting list and that his waiting time goes back to 04/07/2018. Bruce states that he started dialysis about 3 months ago and is dialyzing at [facility] in [place]. PLAN Disposition/Recommendation: See Above Information/Education: patient/caller able to teach back Caller agreeable to plan of care: yes The following references were used: nursing clinical judgement KEN CUTTER Telephone Encounter - Yolie Cross - 08/24/2021 [...] along with placement. Thank you Yolie Cross KEN CUTTER documented in 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 [address] [place] [phone] 05/23/2022 Clinical Admitting/Central Communication Scheduling 05/27/2022 Comprehensive Visit Orthopedic Surgery Markus Sams M.D., Ph.D. [address] [place] [phone] 05/29/2022 Office Visit Otorhinolaryngology Dex Matta APRN, C.N.P., M.S.N. [address] [place] [phone] 05/29/2022 Office Visit Otorhinolaryngology Nadeem Maradiaga P.A.-C., M.S. [address] [place] [phone] 05/31/2022 Appointment Radiology Guilherme Matt MPAS, P.A.-C., M.S. [address] [place] [phone] 06/05/2022 Appointment Laboratory Medicine Angélica Granger P.A.-C. [address] [place] [phone] 06/19/2022 Appointment Laboratory Medicine Angélica Granger P.A.-C. [address] [place] [phone] 07/03/2022 Appointment Laboratory Medicine Angélica Granger P.A.-C. [address] [place] [phone] 07/17/2022 Appointment Laboratory Medicine Angélica Granger P.A.-C. [address] [place] [phone] 07/31/2022 Appointment Laboratory Medicine Angélica Granger P.A.-C. [address] [place] [phone] 08/14/2022 Appointment Laboratory Medicine Angélica Granger P.A.-C. [address] [place] [phone] 08/28/2022 Appointment Laboratory Medicine Angélica Granger P.A.-C. [address] [place] [phone] documented as of this encounter Visit Diagnoses Not on filedocumented in this encounter Additional Health Concerns Assessment Noted Time PHQ-9 Depression Total Score: 4 11/28/2020 10:17 AM CD T documented as of this encounter Care Teams Pasta Maker Relationship Specialty Start Date End Date Elsewhere, Pcp PCP - General Family Medicine 07/29/17 [facility] - Laboratory Medicine 04/12/20 [place] [phone] documented as of this encounter
--- OUTSIDE RECORDS SUMMARY | 2022-05-17 18:31 | XMS_ITS | Encounter Summary ---
:1955 Author Organization [facility] Address [address] [place] [address] Care Team Providers Name Role Phone Elsewhere, Pcp Primary Care Provider Unavailable Encounter Details Date Type Department Care Team Description 08/27/2021 Orders Only Division of Nephrology and Chris Norwood Hypertension in [place], ., D.O. 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 [address] [place] [phone] 05/23/2022 Clinical Admitting/Central Communication Scheduling 05/27/2022 Comprehensive Visit Orthopedic Surgery Markus Sams M.D., Ph.D. [address] [place] [phone] 05/29/2022 Office Visit Otorhinolaryngology Dex Matta, RAMONA, C.N.P., M.S.N. [address] [place] [phone] 05/29/2022 Office Visit Otorhinolaryngology Nadeem Maradiaga, P.Murtaza.-Arley., M.S. [address] [place] [address] [phone] 05/31/2022 Appointment Radiology Guilherme Matt MPAS, Jennifer., M.S. [address] [place] [phone] 06/05/2022 Appointment Laboratory Medicine Angélica Granger P.A.-C. [address] [place] [phone] 06/19/2022 Appointment Laboratory Medicine Angélica Granger P.A.-C. [address] [place] [phone] 07/03/2022 Appointment Laboratory Medicine Angélica Granger P.A.-C. [address] [place] [phone] 07/17/2022 Appointment Laboratory Medicine Angélica Granger P.A.-C. [address] [place] [phone] 07/31/2022 Appointment Laboratory Medicine Angélica Granger P.A.-C. [address] [place] [phone] 08/14/2022 Appointment Laboratory Medicine Angélica Granger P.A.-C. [address] [place] [phone] 08/28/2022 Appointment Laboratory Medicine Angélica Granger P.A.-C. [address] [place] [phone] documented as of this encounter Visit Diagnoses Not on filedocumented in this encounter Additional Health Concerns Assessment Noted Time PHQ-9 Depression Total Score: 4 11/28/2020 10:17 AM CD T documented as of this encounter Care Teams Care Information Associate Relationship Specialty Start Date End Date Elsewhere, Pcp PCP - General Family Medicine 07/29/17 [facility] - Laboratory Medicine 04/12/[address] [address] documented as of this encounter
--- OUTSIDE RECORDS SUMMARY | 2022-05-17 18:31 | XMS_ITS | Encounter Summary ---
:1955 Author Organization [facility] Address [address] [place] [address] Care Team Providers Name Role Phone Elsewhere, Pcp Primary Care Provider Unavailable Encounter Details Date Type Department Care Team Description 08/14/2021 Lab Department of Infusion Trung Plasencia Tr ansplant Liver (HCC) (Primary Dx); Therapy in [place], P.A.Marie., M .S. 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 [address] [place] [address] [phone] 05/23/2022 Clinical Admitting/Central Communication Scheduling 05/27/2022 Comprehensive Visit Orthopedic Surgery Markus Sams M.D., Ph.D. [address] [place] [address] [phone] 05/29/2022 Office Visit Otorhinolaryngology Dex Matta APRN, C.N.P., M.S.N. [address] [place] [place] [address] [phone] 05/29/2022 Office Visit Otorhinolaryngology Nadeem Maradiaga, P.A.-Arley., M.S. [address] [place] [place] [phone] 05/31/2022 Appointment Radiology Guilherme Matt MPAS, PEdgar.Marie., M.S. [address] [place] [place] [phone] 06/05/2022 Appointment Laboratory Medicine Angélica Granger P.A.-C. [address] [place] [place] [phone] 06/19/2022 Appointment Laboratory Medicine Angélica Granger P.A.-C. [address] [place] [place] [phone] 07/03/2022 Appointment Laboratory Medicine Angélica Granger P.A.-C. [address] [place] [place] [phone] 07/17/2022 Appointment Laboratory Medicine Angélica Granger P.A.-C. [address] [place] [place] [address] [phone] 07/31/2022 Appointment Laboratory Medicine Angélica Granger P.A.-C. [address] [place] [place] [phone] 08/14/2022 Appointment Laboratory Medicine Angélica Granger P.A.-C. [address] [place] [place] [phone] 08/28/2022 Appointment Laboratory Medicine Angélica Granger P.A.-C. [address] [place] [place] [phone] documented as of this encounter Procedures Procedure Name Priority Date/Time Associated Diagnosis Comme nts GLUCOSE, FASTING, S/P Routine 08/14/2021 8:21 Transplant Liver (HCC) Results for this AM NETWORK RELATIONS CONSULTANT Medication Therapy procedure are in Correction Not the results Anticoagulant section. Colitis Cytomegalovirus (HCC) CMV DNA DETECT/QUANT, Routine 08/14/2021 8:20 Transplant Liver (HCC) Results for this P AM NETWORK RELATIONS CONSULTANT Medication Therapy procedure are in Member Service Specialist Not the results Anticoagulant section. Colitis Cytomegalovirus (HCC) TACROLIMUS LEVEL, B Routine 08/14/2021 8:20 Transplant L iver (HCC) Results for this AM NETWORK RELATIONS CONSULTANT Medication Therapy procedure are in Correction Not the results Anticoagulant section. Colitis Cytomegalovirus (HCC) CBC WITHOUT Routine 08/14/2021 8:20 Transplant Liver (HCC) Results for this DIFFERENTIAL, B AM NETWORK RELATIONS CONSULTANT Medication Therapy proced ure are in Member Service Specialist Not the results Anticoagulant section. Colitis Cytomegalovirus (HCC) COMPREHENSIVE Routine 08/14/2021 8:20 Transplant Liver (HCC) Results for this METABOLIC PANEL, S/P AM NETWORK RELATIONS CONSULTANT Medication Therapy p rocedure are in Member Service Specialist Not the results Anticoagulant section. Colitis Cytomegalovirus (HCC) documented in this encounter Results (ABNORMAL) Glucose, Fasting (08/14/2021 8:21 AM NETWORK RELATIONS CONSULTANT) athologist Signature Glucose, P 196 (H) 70 - 100 08/14/2021 DTL mg/dL 9:34 AM NETWORK RELATIONS CONSULTANT Last Intake 1 hr 08/14/2021 DTL 8:57 AM NETWORK RELATIONS CONSULTANT Specimen Anatomical Collection Method Collection Time Receive d Time (Source) Location / / Volume Laterality Blood (Blood, 08/14/2021 8:21 AM 08/14/19 8:57 Venous) NETWORK RELATIONS CONSULTANT AM NETWORK RELATIONS CONSULTANT Trung Plasencia P.A.-C., M.S. LAB BLOOD NON ADD-ON Performing Organization Address City/State/ZIP Code Phon e Number [facility] - [address] [place], [place] [address] [facility] [place] [address] Laboratories-[facility] [address] (ABNORMAL) Tacrolimus, B (08/14/2021 8:20 AM NETWORK RELATIONS CONSULTANT) athologist Signature Tacrolimus, B 4.0 (L) 5.0-15.0 08/14/2021 SDSC (Trough) 12:27 PM NETWORK RELATIONS CONSULTANT ng/mL Comment: ----ADDITIONAL INFORMATION---- Target steady-state trough concentration s vary depending on the type of transplant, concomitant immunosuppressio n, clinical/institutional protocols, and time post-transplant. Results should be interpreted in conjunction with this clinical information and any physic al signs/symptoms of rejection/toxicity. Testing performed by Liquid Chromatograp hy-Tandem Mass Spectrometry (LC-MS/MS). This test was developed and its performa nce characteristics determined by [facility] in a manner consistent with CLIA requirements. This test has not been cleared or approved by the U.S. Mer d and Drug Administration. Specimen Anatomical Collection Method Collection Time Receive d Time (Source) Location / / Volume Laterality Blood (Blood, 08/14/2021 8:20 AM 08/14/19 9:44 Venous) NETWORK RELATIONS CONSULTANT AM NETWORK RELATIONS CONSULTANT Trung Plasencia P.A.-C. M.SDemetrius LAB BLOOD NON ADD-ON Performing Organization Address [facility] Phon e Number [facility] [address] [place]O [place] [address] SUPPORT [facility] [place] [address] Laboratory Medicine and Pathology [address] [place] [address] Dr. MURILLO CMV DNA Detect / Quant, Plasma (08/14/2021 8:20 AM NETWORK RELATIONS CONSULTANT) [facility] gist Method Time Signature CMV DNA Undetected Undetected 08/14/2021 [facility] Detect/Quant, IU/mL 9:53 PM NETWORK RELATIONS CONSULTANT P Comment: Result in log IU/mL is Undetected. ----ADDITIONAL INFORMATION---- The quantification range of this assay i s 35 to 10,000,000 IU/mL (1.54 log to 7.00 log IU/mL). Testing was performed u sing the tika CMV test ([employer] with the tika [id number] System. Specimen Anatomical Collection Method Collection Time Receive d Time (Source) Location / / Volume Laterality Blood (Blood, 08/14/2021 8:20 AM 08/14/19 Venous) NETWORK RELATIONS CONSULTANT 11:07 AM NETWORK RELATIONS CONSULTANT Trung Plasencia P.A.-C. M.SDemetrius LAB MICROBIOLOGY - BLOOD O RDERABLES Performing Organization Address City/[facility] Phon e Number [address] [place] [address] SUPPORT [facility] [place] [address] Laboratory Medicine and Pathology [address] [place] [address] Dr. MURILLO (ABNORMAL) Comprehensive Metabolic Panel (08/14/2021 8:20 AM NETWORK RELATIONS CONSULTANT) Analysis Performed At [facility] logist Time Signature Potassium, S 3.9 3.6 - 5.2 08/14/2021 DTL mmol/L 9:27 AM NETWORK RELATIONS CONSULTANT Sodium, S 130 (L) 135 - 145 08/14/2021 DTL mmol/L 9:27 AM NETWORK RELATIONS CONSULTANT Chloride, S 95 (L) 98 - 107 08/14/2021 DTL mmol/L 9:27 AM NETWORK RELATIONS CONSULTANT Bicarbonate, S 22 22 - 29 08/14/2021 DTL mmol/L 9:27 AM NETWORK RELATIONS CONSULTANT Anion Gap 13 7 - 15 08/14/2021 DTL 9:27 AM NETWORK RELATIONS CONSULTANT BUN (Blood Urea 27 (H) 8 - 24 08/14/2021 DTL Nitrogen), S mg/dL 9:27 AM NETWORK RELATIONS CONSULTANT Creatinine 3.05 (H) 0.74 - 08/14/2021 DTL 1.35 mg/dL 9:27 AM NETWORK RELATIONS CONSULTANT eGFR-Non 20 (L) >=60 08/14/2021 DTL Black/ mL/min/BSA 9:27 AM NETWORK RELATIONS CONSULTANT Vietnamese Comment: ----ADDITIONAL INFORMATION---- Estimated GFR calculated using the 2009 CKD_EPI creatinine equation. eGFR-Black/ 23 (L) >=60 mL/min/BSA 2021 9:27 AM NETWORK RELATIONS CONSULTANT DTL Comment: ----ADDITIONAL INFORMATION---- Estimated GFR calculated using the 2009 CKD_EPI creatinine equation. Calcium, Total, S 8.6 (L) 8.8 - 10.2 mg/dL 08/14/2021 9:27 AM NETWORK RELATIONS CONSULTANT DTL Glucose, S CANCELED mg/dL 08/14/2021 9:04 AM NETWORK RELATIONS CONSULTANT DTL Comment: Duplicate test request. Result canceled by the ancillary. Protein, Total, S 6.1 (L) 6.3 - 7.9 g/dL 08/14/2021 9:27 A M NETWORK RELATIONS CONSULTANT DTL Albumin, S 3.8 3.5 - 5.0 g/dL 08/14/2021 9:27 AM NETWORK RELATIONS CONSULTANT D TL Aspartate Aminotransferase 17 8 - 48 U/L 08/14/2021 9 :27 AM NETWORK RELATIONS CONSULTANT DTL (AST), S Alkaline Phosphatase, S 119 40 - 129 U/L 08/14/2021 9: 27 AM NETWORK RELATIONS CONSULTANT DTL Alanine Aminotransferase (ALT), 14 7 - 55 U/L 022 9:27 AM NETWORK RELATIONS CONSULTANT DTL S Bilirubin, Total, S 0.4 <=1.2 mg/dL 08/14/2021 9:27 AM NETWORK RELATIONS CONSULTANT DTL Specimen Anatomical Collection Method Collection Time Receive d Time (Source) Location / / Volume Laterality Blood (Blood, 08/14/2021 8:20 AM 08/14/19 9:04 Venous) NETWORK RELATIONS CONSULTANT AM NETWORK RELATIONS CONSULTANT Trung Plasencia P.A.-C. MDemetriusSDemetrius LAB BLOOD ADD-ON Performing Organization Address City/[facility] Phon e Number [facility] - [address] (ABNORMAL) CBC without Differential (08/14/2021 8:20 AM NETWORK RELATIONS CONSULTANT) [facility] Method Time Signature Hemoglobin 9.6 (L) 13.2 - 08/14/2021 DTL 16.6 g/dL 8:59 AM NETWORK RELATIONS CONSULTANT Hematocrit 30.3 (L) 38.3 - 08/14/2021 DTL 48.6 % 8:59 AM NETWORK RELATIONS CONSULTANT Erythrocytes 3.10 (L) 4.35 - 08/14/2021 DTL 5.65 8:59 AM NETWORK RELATIONS CONSULTANT x10(12)/L MCV 97.7 78.2 - 08/14/2021 DTL 97.9 fL 8:59 AM NETWORK RELATIONS CONSULTANT RBC Distrib Width 14.5 11.8 - 08/14/2021 DTL 14.5 % 8:59 AM NETWORK RELATIONS CONSULTANT Platelet Count 282 135 - 317 08/14/2021 DTL x10(9)/L 8:59 AM NETWORK RELATIONS CONSULTANT Leukocytes 7.4 3.4 - 9.6 08/14/2021 DTL x10(9)/L 8:59 AM NETWORK RELATIONS CONSULTANT Specimen Anatomical Collection Method Collection Time Receive d Time (Source) Location / / Volume Laterality Blood (Blood, 08/14/2021 8:20 AM 08/14/19 8:41 Venous) NETWORK RELATIONS CONSULTANT AM NETWORK RELATIONS CONSULTANT Trung Plasencia P.A.-C. MDemetriusSDemetrius LAB BLOOD ADD-ON Performing Organization Address City/State/[facility] Phon e Number [facility] - [address] [place] [address] [facility] [place] [id number] [facility] [facility] [address] documented in this encounter Visit Diagnoses Diagnosis Transplant Liver (HCC) - Primary Medication Therapy Correction Not Anticoa gulant Colitis Cytomegalovirus (HCC) Anemia documented in this encounter Administered Medications Inactive Administered Medications - up to 3 most recent administrations Medication Order MAR Action Action Date Dose Rate Site sodium chloride 0.9 % injection Given 08/14/2021 8:21 AM NETWORK RELATIONS CONSULTANT 30 mL 10-30 mL 10-30 mL, intra-catheter, As needed, line care, Starting on Fri08/14/21 at 0821, When no infusion to maintain patency. Flush every 7 days to each lumen. documented in this encounter Additional Health Concerns Assessment Noted Time PHQ-9 Depression Total Score: 4 11/28/2020 10:17 AM CD T documented as of this encounter Care Teams Taxation Accountant Relationship Specialty Start Date End Date Elsewhere, Pcp PCP - General Family Medicine 07/29/17 [facility] - Laboratory Medicine 04/12/[address] [address] documented as of this encounter
--- OUTSIDE RECORDS SUMMARY | 2022-05-17 18:31 | XMS_ITS | Encounter Summary ---
:1955 Author Organization [facility] Address [address] [place] [address] Care Team Providers Name Role Phone Elsewhere, Pcp Primary Care Provider Unavailable Encounter Details Date Type Department Care Team Description 08/14/2021 Clinical Department of [place] Otorhinolaryngology in [place], [place] [address] [place] [address] [address] [place] [phone] Social History Tobacco Use Types Packs/Day Years [...] Date Recorded Male 05/16/2020 4:27 PM KIER DRIER documented as of this encounter Miscellaneous Notes Telephone Encounter - Rachelle Starr M.D. - 08/16/2021 10:10 AM CST Added 125mg Vancomycin BID to regimen for 21 days per ID recommendations. Will message patient with update. Rachelle Starr M.D. DRIER Telephone Encounter - Rachelle Starr M.D. - [...] comfortable with the plan. Rachelle Starr M.D. DRIER Telephone Encounter - Rachelle Starr M.D. - [...] prednisone taper would be helpful. We will [place] back with the patient once the plan is determined. Rachelle Starr M.D. DRIER Telephone Encounter - Elizabeth Barrera - 08/14/2021 [...] patient a call to discuss. Telephone - [phone]. Thanks. DRIER documented in 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 [address] [place] [phone] 05/23/2022 Clinical Admitting/Central Communication Scheduling 05/27/2022 Comprehensive Visit Orthopedic Surgery Markus Sams M.D., Ph.D. [address] [place] [phone] 05/29/2022 Office Visit Otorhinolaryngology Dex Matta APRN C.N.P., M.S.N. [address] [place] [phone] 05/29/2022 Office Visit Otorhinolaryngology Nadeem Maradiaga, Jennifer., M.S. [address] [place] [phone] 05/31/2022 Appointment Radiology Guilherme Matt MPAS, Jennifer., M.S. [address] [place] [phone] 06/05/2022 Appointment Laboratory Medicine Angélica Granger P.A.-C. [address] [place] [phone] 06/19/2022 Appointment Laboratory Medicine Angélica Granger P.A.-C. [address] [place] [phone] 07/03/2022 Appointment Laboratory Medicine Angélica Granger P.A.-C. [address] [place] [phone] 07/17/2022 Appointment Laboratory Medicine Angélica Granger P.A.-C. [address] [place] [phone] 07/31/2022 Appointment Laboratory Medicine Angélica Granger P.A.-C. [address] [place] [phone] 08/14/2022 Appointment Laboratory Medicine Angélica Granger P.A.-C. [address] [place] [phone] 08/28/2022 Appointment Laboratory Medicine Angélica Granger P.A.-C. [address] [place] [phone] documented as of this encounter Visit Diagnoses Not on filedocumented in this encounter Additional Health Concerns Assessment Noted Time PHQ-9 Depression Total Score: 4 11/28/2020 10:17 AM CD T documented as of this encounter Care Teams Business Law Instructor Relationship Specialty Start Date End Date Elsewhere, Pcp PCP - General Family Medicine 07/29/17 [facility] - Laboratory Medicine 04/12/[address] [address] documented as of this encounter
--- OUTSIDE RECORDS SUMMARY | 2022-05-17 18:31 | XMS_ITS | Encounter Summary ---
:1955 Author Organization [facility] Address [address] [place] [address] Care Team Providers Name Role Phone Elsewhere, Pcp Primary Care Provider Unavailable Reason for Visit Reason Comments Labs Only Encounter Details Date Type Department Care Team Description 08/15/2021 Clinical Communication [facility] Labs Only Center for R, R.N. 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 *All labs are now found in [employer] - Lab - Flowsheets. For further review of labs, please review there or under Synopsis* R FAB OPERATOR documented in 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 [address] [place] [phone] 05/23/2022 Clinical Admitting/Central Communication Scheduling 05/27/2022 Comprehensive Visit Orthopedic Surgery Markus Sams M.D., Ph.D. [address] [place] [phone] 05/29/2022 Office Visit Otorhinolaryngology Dex Matta APRN CDemetriusNFabrice., M.S.N. [address] [place] [phone] 05/29/2022 Office Visit Otorhinolaryngology Nadeem Maradiaga P.A.-C., M.S. [address] [place] [phone] 05/31/2022 Appointment Radiology Guilherme Matt MPAS, P.A.-C., M.S. [address] [place] [phone] 06/05/2022 Appointment Laboratory Medicine Angélica Granger P.A.-C. [address] [place] [phone] 06/19/2022 Appointment Laboratory Medicine Angélica Granger P.A.-C. [address] [place] [phone] 07/03/2022 Appointment Laboratory Medicine Angélica Granger P.A.-C. [address] [place] [phone] 07/17/2022 Appointment Laboratory Medicine Angélica Granger P.A.-C. [address] [place] [phone] 07/31/2022 Appointment Laboratory Medicine Angélica Granegr P.A.-C. [address] [place] [phone] 08/14/2022 Appointment Laboratory Medicine Angélica Granger P.A.-C. [address] [place] [phone] 08/28/2022 Appointment Laboratory Medicine Angélica Granger P.A.-C. [address] [place] [phone] documented as of this encounter Visit Diagnoses Not on filedocumented in this encounter Additional Health Concerns Assessment Noted Time PHQ-9 Depression Total Score: 4 11/28/2020 10:17 AM CD T documented as of this encounter Care Teams Manager Reading Relationship Specialty Start Date End Date Elsewhere, Pcp PCP - General Family Medicine 07/29/17 [facility] - Laboratory Medicine 04/12/[address] [address] documented as of this encounter
--- OUTSIDE RECORDS SUMMARY | 2022-05-17 18:31 | XMS_ITS | Encounter Summary ---
:1955 Author Organization [facility] Address [address] [place] [address] Care Team Providers Name Role Phone Elsewhere, Pcp Primary Care Provider Unavailable Reason for Visit Reason Comments Txp Tacrolimus Adjustment Protocol - Liver Encounter Details Date Type Department Care Team Description 08/24/2021 Clinical Curt Moss, Jose[facility] Communication Center for Yolie R, Adjustment Transplantation and R.N. 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 - 08/24/2021 8:24 AM CST Tacrolimus level within goal range of 1.7-4, per Tacrolimus Adjustment Protocol no dose change recommended. Other lab results received and reviewed, stable trends, continue monitoring weekly. TRICAL CONTROLS DESIGNER documented in 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 [address] [place] [phone] 05/23/2022 Clinical Admitting/Central Communication Scheduling 05/27/2022 Comprehensive Visit Orthopedic Surgery Markus Sams M.D., Ph.D. [address] [place] [address] [phone] 05/29/2022 Office Visit Otorhinolaryngology Dex Matta APRN, C.N.P., M.S.N. [address] [place] [phone] 05/29/2022 Office Visit Otorhinolaryngology Nadeem Maradiaga P.A.-C., M.S. [address] [place] [phone] 05/31/2022 Appointment Radiology Guilherme Matt MPAS, P.A.-C., M.S. [address] [place] [phone] 06/05/2022 Appointment Laboratory Medicine Angélica Granger P.A.-C. [address] [place] [phone] 06/19/2022 Appointment Laboratory Medicine Angélica Granger P.A.-C. [address] [place] [phone] 07/03/2022 Appointment Laboratory Medicine Angélica Granger P.A.-C. [address] [place] [phone] 07/17/2022 Appointment Laboratory Medicine Angélica Granger P.A.-C. [address] [place] [phone] 07/31/2022 Appointment Laboratory Medicine Angélica Granger P.A.-C. [address] [place] [phone] 08/14/2022 Appointment Laboratory Medicine Angélica Granger P.A.-C. [address] [place] [phone] 08/28/2022 Appointment Laboratory Medicine Angélica Granger P.A.-C. [address] [place] [phone] documented as of this encounter Visit Diagnoses Not on filedocumented in this encounter Additional Health Concerns Assessment Noted Time PHQ-9 Depression Total Score: 4 11/28/2020 10:17 AM CD T documented as of this encounter Care Teams Mechanical Development Engineer Relationship Specialty Start Date End Date Elsewhere, Pcp PCP - General Family Medicine 07/29/17 [facility] - Laboratory Medicine 04/12/20 [place] [phone] documented as of this encounter
--- OUTSIDE RECORDS SUMMARY | 2022-05-17 18:31 | XMS_ITS | Encounter Summary ---
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 [address] [place] [phone] 05/23/2022 Clinical Admitting/Central Communication Scheduling 05/27/2022 Comprehensive Visit Orthopedic Surgery Markus Sams M.D., Ph.D. [address] [place] [phone] 05/29/2022 Office Visit Otorhinolaryngology Dex Matta APRN, C.N.P., M.S.N. [address] [place] [phone] 05/29/2022 Office Visit Otorhinolaryngology Nadeem Maradiaga, PMaryanne., M.S. [address] [place] [phone] 05/31/2022 Appointment Radiology Guilherme Matt MPAS, Jennifer., M.S. [address] [place] [phone] 06/05/2022 Appointment Laboratory Medicine Angélica Granger P.A.-C. [address] [place] [phone] 06/19/2022 Appointment Laboratory Medicine Angélica Granger P.A.-C. [address] [place] [phone] 07/03/2022 Appointment Laboratory Medicine Angélica Granger P.A.-C. [address] [place] [phone] 07/17/2022 Appointment Laboratory Medicine Angélica Granger P.A.-C. [address] [place] [phone] 07/31/2022 Appointment Laboratory Medicine Angélica Granger P.A.-C. [address] [place] [phone] 08/14/2022 Appointment Laboratory Medicine Angélica Granger P.A.-C. [address] [place] [phone] 08/28/2022 Appointment Laboratory Medicine Angélica Granger P.A.-C. [address] [place] [phone] documented as of this encounter Procedures Procedure Name Priority Date/Time Associated Comments Diagnosis OTORHINOLARYNGOLOGY IMAGE Routine 08/28/2021 11:49 Results for this EXAM AM SOCIAL STUDIES DEPARTMENT CHAIR procedure are i n the results section. documented in this encounter Results NOSE-Otorhinolaryngology Image Exam (08/28/2021 11:49 AM SOCIAL STUDIES DEPARTMENT CHAIR) Specimen (Source) Anatomical Collection Method Collection Time Re ceived Time Location / / Volume Laterality 08/28/2021 12:21 PM SOCIAL STUDIES DEPARTMENT CHAIR Narrative IIMS - 08/28/2021 11:49 AM SOCIAL STUDIES DEPARTMENT CHAIR This order has been created and auto-finalized [...] documented as of this encounter Care Teams Recruitment Officer Relationship Specialty Start Date End Date Elsewhere, Pcp PCP - General Family Medicine 07/29/17 [facility] - Laboratory Medicine 04/12/20 [place] [phone] documented as of this encounter
--- OUTSIDE RECORDS SUMMARY | 2022-05-17 18:31 | XMS_ITS | Encounter Summary ---
:1955 Author Organization [facility] Address [address] [place] [address] Care Team Providers Name Role Phone Elsewhere, Pcp Primary Care Provider Unavailable Reason for Referral Outpatient (Routine) - Closed Specialty Diagnoses / Procedures Referred By Contact Refer red To Contact Radiology Diagnoses Transplant Liver (HCC) Medication Therapy Entry Writer Not Anticoagulant Colitis Cytomegalovirus (HCC) Trung Plasencia P.A.-C., [facility] Procedures IR PICC Line Removal M.S. [address] [place] [address] Referral ID Status Reason Start Date Expiration Date Visits Requ ested Visits Authorized [id number] Closed 08/08/2021 08/08/2022 1 1 E BLOCK SPLITTER Reason for Visit Outpatient (Routine) - Closed Specialty Diagnoses / Procedures Referred By Contact Refer red To Contact Radiology Diagnoses Transplant Liver (HCC) Medication Therapy Half-Way Not Anticoagulant Colitis Cytomegalovirus (HCC) Trung Plasencia P.A.-C., [facility] Procedures IR PICC Line Removal M.S. [address] [place] [phone] Referral ID Status Reason Start Date Expiration Date Visits Requ ested Visits Authorized [id number] Closed 08/08/2021 08/08/2022 1 1 Encounter Details Date Type Department Care Team Description 08/14/2021 Hospital Encounter Department of Trung Plasencia nt Liver (HCC); Radiology, Kd Stern P.A.-C., Medication Therapy Entry Writer Not Anticoagulant; Building, in [place].S. 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 documented as of this encounter Last Filed Vital Signs Vital Sign Reading Time Taken Comments Blood Pressure - - Pulse 71 08/14/2021 10:10 AM STAVE BLOCK SPLITTER Temperature - - Respiratory Rate - - Oxygen Saturation 97% 08/14/2021 10:10 AM STAVE BLOCK SPLITTER Inhaled Oxygen Concentration - - Weight - [...] Kidney Disease Stage 4 (HCC) tacrolimus (PROGRAF) 0.5 TAKE 2 CAPSULES BY 360 capsule 3 10/16/2021 mg capsuleIndications: MOUTH TWICE DAILY Transplant Liver (HCC), Medication Therapy Entry Writer Not Anticoagulant valGANciclovir (VALCYTE) TAKE 1 TABLET BY 25 tablet 1 08/0810/13/2021 450 mg MOUTH 2 X PER WEEK. 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 amoxicillin-pot Take 1 tablet (500 14 tablet [...] MOUTH DAILY Transplant Liver (HCC), Medication Therapy Entry Writer Not Anticoagulant sulfamethoxazole-trimeth Take 1 tablet by 14 tablet 0 08/1508/29/2021 oprim (BACTRIM DS) mouth daily for 14 800-160 mg per tablet days. Take after dialysis on dialysis days torsemide (DEMADEX) 10 Take 30 mg by mouth 0 08/17/2021 mg tablet daily. UNABLE TO FIND by nasal 0 10/12/2021 (alternating) route 2 (two) times a day. Azelastine 1mg to Sinus Rinse twice daily. [facility] documented as of 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 [address] [place] [phone] 05/23/2022 Clinical Admitting/Central Communication Scheduling 05/27/2022 Comprehensive Visit Orthopedic Surgery Markus Sams M.D., Ph.D. [address] [place] [phone] 05/29/2022 Office Visit Otorhinolaryngology Dex Matta APRN, C.N.P., M.S.N. [address] [place] [phone] 05/29/2022 Office Visit Otorhinolaryngology Nadeem Maradiaga P.A.-C., M.S. [address] [place] [phone] 05/31/2022 Appointment Radiology Guilherme Matt MPAS, Edmundo, M.S. [address] [place] [phone] 06/05/2022 Appointment Laboratory Medicine Angélica Granger P.A.-C. [address] [place] [phone] 06/19/2022 Appointment Laboratory Medicine Angélica Granger P.A.-C. [address] [place] [phone] 07/03/2022 Appointment Laboratory Medicine Angélcia Granger P.A.-C. [address] [place] [phone] 07/17/2022 Appointment Laboratory Medicine Angélica Granger P.A.-C. [address] [place] [phone] 07/31/2022 Appointment Laboratory Medicine Bárbara Angélica Stern P.A.-C. [address] [place] [phone] 08/14/2022 Appointment Laboratory Medicine Angélica Granger P.A.-C. [address] [place] [phone] 08/28/2022 Appointment Laboratory Medicine Angélica Granger P.A.-C. [address] [place] [phone] documented as of this encounter Procedures Procedure Name Priority Date/Time Associated Diagnosis Comme nts IR PICC LINE RAD - Routine 08/14/2021 10:34 Transplant Liver Result s for REMOVAL (most inpatients AM STAVE BLOCK SPLITTER (HCC) this procedure and all Medication Therapy are in th e outpatients) Entry Writer Not results Anticoagulant section. Colitis Cytomegalovirus (HCC) documented in this encounter Results IR PICC Line Removal (08/14/2021 10:34 AM STAVE BLOCK SPLITTER) Anatomical Region Laterality Modality Chest, Pelvis, Abdomen, Vascular Interventional RST LOS, N/A X-Ray Angiography Vascular Interventional ARZ LOS, Vascular Interventional FLA LOS Specimen (Source) Anatomical Collection Method Collection Time Re ceived Time Location / / Volume Laterality 08/14/2021 2:18 PM STAVE BLOCK SPLITTER Impressions 08/14/2021 2:20 PM STAVE BLOCK SPLITTER Successful removal of left internal jugular vein tunneled PICC line NR Narrative 08/14/2021 2:20 PM STAVE BLOCK SPLITTER EXAM: IR PICC LINE REMOVAL CLINICAL HISTORY: [...] medical records. Procedure Note Mayra Infante P.A.-C., Andreea M.S. - 08/14/2021 EXAM: IR PICC LINE [...] Diagnoses Diagnosis Transplant Liver (HCC) Medication Therapy Entry Writer Not Anticoa gulant Colitis Cytomegalovirus (HCC) documented in this encounter Additional Health Concerns Assessment Noted Time PHQ-9 Depression Total Score: 4 11/28/2020 10:17 AM CD T documented as of this encounter Care Teams Head Banquet Waitress Relationship Specialty Start Date End Date Elsewhere, Pcp PCP - General Family Medicine 07/29/17 [facility] - Laboratory Medicine 04/12/[address] [address] documented as of this encounter
--- OUTSIDE RECORDS SUMMARY | 2022-05-17 18:31 | XMS_ITS | Encounter Summary ---
:1955 Author Organization [facility] Address [address] [place] [address] Care Team Providers Name Role Phone Elsewhere, Pcp Primary Care Provider Unavailable Encounter Details Date Type Department Care Team Description 08/29/2021 Hospital Encounter Department of Trung Plasencia nt Liver (HCC); Laboratory Medicine Edmundo Stern, Medicati on Therapy Skilled Nursing Not Anticoagulant; in Jimmie Blake M.S. 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 [address] [place] [phone] 05/23/2022 Clinical Admitting/Central Communication Scheduling 05/27/2022 Comprehensive Visit Orthopedic Surgery Markus Sams M.D., Ph.D. [address] [place] [phone] 05/29/2022 Office Visit Otorhinolaryngology Dex Matta APRN, C.N.P., M.S.N. [address] [place] [phone] 05/29/2022 Office Visit Otorhinolaryngology Nadeem Maradiaga, P.A.-C., M.S. [address] [place] [phone] 05/31/2022 Appointment Radiology Guilherme Matt MPAS, P.Murtaza.Marie., M.S. [address] [place] [phone] 06/05/2022 Appointment Laboratory Medicine Angélica Granger P.A.-C. [address] [place] [phone] 06/19/2022 Appointment Laboratory Medicine Angélica Granger P.A.-C. [address] [place] [phone] 07/03/2022 Appointment Laboratory Medicine Angélica Granger P.A.-C. [address] [place] [phone] 07/17/2022 Appointment Laboratory Medicine Angélica Granger P.A.-C. [address] [place] [phone] 07/31/2022 Appointment Laboratory Medicine Angélica Granger P.A.-C. [address] [place] [phone] 08/14/2022 Appointment Laboratory Medicine Angélica Granger P.A.-C. [address] [place] [phone] 08/28/2022 Appointment Laboratory Medicine Angélica Granger P.A.-C. [address] [place] [phone] documented as of this encounter Procedures Procedure Name Priority Date/Time Associated Diagnosis Comme nts CBC WITHOUT Routine 08/29/2021 7:25 Transplant Liver (HCC) Results for this DIFFERENTIAL, B AM BRUSHING MACHINE OPERATOR Medication Therapy proced ure are in Infantry Operations Specialist Not the results Anticoagulant section. Colitis Cytomegalovirus (HCC) GLUCOSE, FASTING, S/P Routine 08/29/2021 7:25 Transplant Liver (HCC) Results for this AM BRUSHING MACHINE OPERATOR Medication Therapy procedure are in Infantry Operations Specialist Not the results Anticoagulant section. Colitis Cytomegalovirus (HCC) COMPREHENSIVE Routine 08/29/2021 7:25 Transplant Liver (HCC) Results for this METABOLIC PANEL, S/P AM BRUSHING MACHINE OPERATOR Medication Therapy p rocedure are in Skilled Nursing Not the results Anticoagulant section. Colitis Cytomegalovirus (HCC) CMV DNA DETECT/QUANT, Routine 08/29/2021 7:24 Transplant Liver (HCC) Results for this P AM BRUSHING MACHINE OPERATOR Medication Therapy procedure are in Infantry Operations Specialist Not the results Anticoagulant section. Colitis Cytomegalovirus (HCC) TACROLIMUS LEVEL, B Routine 08/29/2021 7:24 Transplant L iver (HCC) Results for this AM BRUSHING MACHINE OPERATOR Medication Therapy procedure are in Skilled Nursing Not the results Anticoagulant section. Colitis Cytomegalovirus (HCC) documented in this encounter Results (ABNORMAL) Glucose, Fasting (08/29/2021 7:25 AM BRUSHING MACHINE OPERATOR) P athologist Signature Glucose, P 120 (H) 70 - 100 08/29/2021 CN[facility] mg/dL 7:54 AM BRUSHING MACHINE OPERATOR Last Intake 10 hr 08/29/2021 [facility] 7:31 AM BRUSHING MACHINE OPERATOR Specimen Anatomical Collection Method Collection Time Receive d Time (Source) Location / / Volume Laterality Blood (Blood, 08/29/2021 7:25 AM 08/30/19 7:31 Venous) BRUSHING MACHINE OPERATOR AM BRUSHING MACHINE OPERATOR Trung Plasencia P.A.-C., M.S. LAB BLOOD NON ADD-ON Performing Organization Address City/State/[facility] Code Phon e Number [phone] [place] [address] [place] [address] (ABNORMAL) Comprehensive Metabolic Panel (08/29/2021 7:25 AM BRUSHING MACHINE OPERATOR) Analysis Performed At Patho logist Time Signature Potassium, P 3.7 3.6 - 5.2 08/29/2021 [facility] mmol/L 7:57 AM BRUSHING MACHINE OPERATOR Sodium, P 136 135 - 145 08/29/2021 [facility] mmol/L 7:57 AM BRUSHING MACHINE OPERATOR Chloride, P 99 98 - 107 08/29/2021 [facility] mmol/L 7:57 AM BRUSHING MACHINE OPERATOR Bicarbonate, P 21 (L) 22 - 29 08/29/2021 [facility] mmol/L 7:57 AM BRUSHING MACHINE OPERATOR Anion Gap, P 16 (H) 7 - 15 08/29/2021 [facility] 7:57 AM BRUSHING MACHINE OPERATOR BUN (Blood Urea 44 (H) 8 - 24 08/29/2021 [facility] Nitrogen), P mg/dL 7:57 AM BRUSHING MACHINE OPERATOR Creatinine 3.72 (H) 0.74 - 08/29/2021 [facility] 1.35 mg/dL 7:57 AM BRUSHING MACHINE OPERATOR eGFR-Black/Afri 18 (L) >=60 08/29/2021 [facility] can [place] mL/min/BSA 7:57 AM BRUSHING MACHINE OPERATOR Comment: ----ADDITIONAL INFORMATION---- Estimated GFR calculated using the 2009 CKD_EPI creatinine equation. eGFR Non-Black/ 16 (L) >=60 mL/min/BSA 08/29/2021 7:57 AM BRUSHING MACHINE OPERATOR CN[facility] [place] Comment: ----ADDITIONAL INFORMATION---- Estimated GFR calculated using the 2009 CKD_EPI creatinine equation. Calcium, Total, P 9.3 8.8 - 10.2 mg/dL 08/29/2021 7:57 AM BRUSHING MACHINE OPERATOR [facility] Glucose, P CANCELED mg/dL 08/29/2021 7:31 AM BRUSHING MACHINE OPERATOR CNFL Comment: Duplicate test request. Result canceled by the ancillary. Protein, Total, P 6.5 6.3 - 7.9 g/dL 08/29/2021 7:57 A M BRUSHING MACHINE OPERATOR CNFL Albumin, P 4.1 3.5 - 5.0 g/dL 08/29/2021 7:57 AM BRUSHING MACHINE OPERATOR C NFL Aspartate Aminotransferase (AST), 22 8 - 48 U/L 08/29 7:57 AM BRUSHING MACHINE OPERATOR CNFL P Alkaline Phosphatase, P 123 40 - 129 U/L 08/29/2021 7: 57 AM BRUSHING MACHINE OPERATOR CNFL Alanine Aminotransferase (ALT), P 19 7 - 55 U/L 08/29 7:57 AM BRUSHING MACHINE OPERATOR CNFL Bilirubin, Total, P 0.2 <=1.2 mg/dL 08/29/2021 7:57 AM BRUSHING MACHINE OPERATOR CNFL Specimen Anatomical Collection Method Collection Time Receive d Time (Source) Location / / Volume Laterality Blood (Blood, 08/29/2021 7:25 AM 08/30/19 7:31 Venous) BRUSHING MACHINE OPERATOR AM BRUSHING MACHINE OPERATOR Trung Plasencia P.A.-C., M.S. LAB BLOOD ADD-ON Performing Organization Address City/State/ZIP Code Phon e Number [facility]- [address] [place] [id number] [place] [address] (ABNORMAL) CBC without Differential (08/29/2021 7:25 AM BRUSHING MACHINE OPERATOR) Patholo gist Method Time Signature Hemoglobin 9.9 (L) 13.2 - 08/29/2021 [facility] 16.6 g/dL 8:19 AM BRUSHING MACHINE OPERATOR Hematocrit 30.9 (L) 38.3 - 08/29/2021 [facility] 48.6 % 8:19 AM BRUSHING MACHINE OPERATOR Erythrocytes 3.16 (L) 4.35 - 08/29/2021 [facility] 5.65 8:19 AM BRUSHING MACHINE OPERATOR x10(12)/L MCV 97.8 78.2 - 08/29/2021 CN[facility] 97.9 fL 8:19 AM BRUSHING MACHINE OPERATOR RBC Distrib Width 13.2 11.8 - 08/29/2021 CN[facility] 14.5 % 8:19 AM BRUSHING MACHINE OPERATOR Platelet Count 238 135 - 317 08/29/2021 [facility] x10(9)/L 8:19 AM BRUSHING MACHINE OPERATOR Leukocytes 4.8 3.4 - 9.6 08/29/2021 [facility] x10(9)/L 8:19 AM BRUSHING MACHINE OPERATOR Specimen Anatomical Collection Method Collection Time Receive d Time (Source) Location / / Volume Laterality Blood (Blood, 08/29/2021 7:25 AM 08/30/19 7:31 Venous) BRUSHING MACHINE OPERATOR AM BRUSHING MACHINE OPERATOR Trung Plasencia P.A.-C., M.S. LAB BLOOD ADD-ON Performing Organization Address City/State/[facility] Code Phon e Number [facility]- [address] [place] [phone] [place] [address] [place] [address] [address] (ABNORMAL) Tacrolimus, B (08/29/2021 7:24 AM BRUSHING MACHINE OPERATOR) P athologist Signature Tacrolimus, B 2.5 (L) 5.0-15.0 08/30/2021 SDSC (Trough) 10:56 AM BRUSHING MACHINE OPERATOR ng/mL Comment: ----ADDITIONAL INFORMATION---- Target steady-state trough concentration s vary depending on the type of transplant, concomitant immunosuppressio n, clinical/institutional protocols, and time post-transplant. Results should be interpreted in conjunction with this clinical information and any physic al signs/symptoms of rejection/toxicity. Testing performed by Liquid Chromatograp hy-Tandem Mass Spectrometry (LC-MS/MS). This test was developed and its performa nce characteristics determined by [facility] in a manner consistent with CLIA requirements. This test has not been cleared or approved by the U.S. Mer d and Drug Administration. Specimen Anatomical Collection Method Collection Time Receive d Time (Source) Location / / Volume Laterality Blood (Blood, 08/29/2021 7:24 AM 08/31/19 7:30 Venous) BRUSHING MACHINE OPERATOR AM BRUSHING MACHINE OPERATOR Trung Plasencia P.A.-C., M.S. LAB BLOOD NON ADD-ON Performing Organization Address City/[facility] Phon e Number [facility] [address] [place] [address] SUPPORT [facility] [place] [address] Laboratory Medicine and Pathology [address] [place] [address] Dr. MURILLO (ABNORMAL) CMV DNA Detect / Quant, Plasma (08/29/2021 7:24 AM BRUSHING MACHINE OPERATOR) [facility] Method Time Signature CMV DNA <35 (A) Undetected 08/30/2021 [facility] Detect/Quant, IU/mL 4:21 PM BRUSHING MACHINE OPERATOR P Comment: Result in log IU/mL is <1.54. CMV DNA is detected, but level present i s <35 IU/mL (<1.54 log IU/mL). This assay cannot accurately quantify CMV DNA below this level. ----ADDITIONAL INFORMATION---- The quantification range of this assay i s 35 to 10,000,000 IU/mL (1.54 log to 7.00 log IU/mL). Testing was performed u sing the tika CMV test ([employer] with the tika [id number] System. Specimen Anatomical Collection Method Collection Time Receive d Time (Source) Location / / Volume Laterality Blood (Blood, 08/29/2021 7:24 AM 08/30/19 22 8:08 Venous) BRUSHING MACHINE OPERATOR PM BRUSHING MACHINE OPERATOR Lynn Gonzalez P.A.-C.SDemetrius LAB MICROBIOLOGY - BLOOD O RDERABLES Performing Organization Address City/[facility] Phon e Number [facility] [address] [place] [address] SU[facility] [place] [address] Laboratory Medicine and Pathology [address] [place] [address] Dr. MURILLO documented in this encounter Visit Diagnoses Diagnosis Transplant Liver (HCC) Medication Therapy Skilled Nursing Not Anticoa gulant Colitis Cytomegalovirus (HCC) documented in this encounter Additional Health Concerns Assessment Noted Time PHQ-9 Depression Total Score: 4 11/28/2020 10:17 AM CD T documented as of this encounter Care Teams Warp Spinner Relationship Specialty Start Date End Date Elsewhere, Pcp PCP - General Family Medicine 07/29/17 [facility] - Laboratory Medicine 04/12/20 [place] [phone] documented as of this encounter
--- OUTSIDE RECORDS SUMMARY | 2022-05-17 18:31 | XMS_ITS | Encounter Summary ---
:1955 Author Organization [facility] Address [address] [place] [address] Care Team Providers Name Role Phone Elsewhere, Pcp Primary Care Provider Unavailable Encounter Details Date Type Department Care Team Description 08/22/2021 Orders Only Division of Nephrology and Elissa Wilcox A PRN, Hypertension, Taoist C.N.P. 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 [address] [place] [phone] 05/23/2022 Clinical Admitting/Central Communication Scheduling 05/27/2022 Comprehensive Visit Orthopedic Surgery Markus Sams M.D., Ph.D. [address] [place] [phone] 05/29/2022 Office Visit Otorhinolaryngology Dex Matta APRN, C.N.P., M.S.N. [address] [place] [phone] 05/29/2022 Office Visit Otorhinolaryngology Nadeem Maradiaga, P.Murtaza.-Arley., M.S. [address] [place] [phone] 05/31/2022 Appointment Radiology Guilherme Matt MPAS, Jennifer., M.S. [address] [place] [phone] 06/05/2022 Appointment Laboratory Medicine Angélica Granger P.A.-C. [address] [place] [phone] 06/19/2022 Appointment Laboratory Medicine Angélica Granger P.A.-C. [address] [place] [phone] 07/03/2022 Appointment Laboratory Medicine Angélica Granger P.A.-C. [address] [place] [phone] 07/17/2022 Appointment Laboratory Medicine Angélica Granger P.A.-C. [address] [place] [phone] 07/31/2022 Appointment Laboratory Medicine Angélica Granger P.A.-C. [address] [place] [phone] 08/14/2022 Appointment Laboratory Medicine Angélica Granger P.A.-C. [address] [place] [phone] 08/28/2022 Appointment Laboratory Medicine Angélica Granger P.A.-C. [address] [place] [phone] documented as of this encounter Visit Diagnoses Not on filedocumented in this encounter Additional Health Concerns Assessment Noted Time PHQ-9 Depression Total Score: 4 11/28/2020 10:17 AM CD T documented as of this encounter Care Teams Project Management Professor Relationship Specialty Start Date End Date Elsewhere, Pcp PCP - General Family Medicine 07/29/17 [facility] - Laboratory Medicine 04/12/[address] [phone] documented as of this encounter
--- OUTSIDE RECORDS SUMMARY | 2022-05-17 18:31 | XMS_ITS | Encounter Summary ---
:1955 Author Organization [facility] Address [address] [place] [address] Care Team Providers Name Role Phone Elsewhere, Pcp Primary Care Provider Unavailable Encounter Details Date Type Department Care Team Description 08/17/2021 Orders Only Division of Nephrology and Elissa Wilcox A PRN, Hypertension, Restorationist C.N.P. 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 [address] [place] [phone] 05/23/2022 Clinical Admitting/Central Communication Scheduling 05/27/2022 Comprehensive Visit Orthopedic Surgery Markus Sams M.D., Ph.D. [address] [place] [phone] 05/29/2022 Office Visit Otorhinolaryngology Dex Matta APRN, C.N.P., M.S.N. [address] [place] [phone] 05/29/2022 Office Visit Otorhinolaryngology Nadeem Maradiaga, P.Murtaza.-Arley., M.S. [address] [place] [address] [phone] 05/31/2022 Appointment Radiology Guilherme Matt MPAS, Jennifer., M.S. [address] [place] [phone] 06/05/2022 Appointment Laboratory Medicine Angélica Granger P.A.-C. [address] [place] [phone] 06/19/2022 Appointment Laboratory Medicine Angélica Granger P.A.-C. [address] [place] [phone] 07/03/2022 Appointment Laboratory Medicine Angélica Granger P.A.-C. [address] [place] [phone] 07/17/2022 Appointment Laboratory Medicine Angélica Granger P.A.-C. [address] [place] [phone] 07/31/2022 Appointment Laboratory Medicine Angélica Granger P.A.-C. [address] [place] [phone] 08/14/2022 Appointment Laboratory Medicine Angélica Granger P.A.-C. [address] [place] [phone] 08/28/2022 Appointment Laboratory Medicine Angélica Granger P.A.-C. [address] [place] [phone] documented as of this encounter Visit Diagnoses Not on filedocumented in this encounter Additional Health Concerns Assessment Noted Time PHQ-9 Depression Total Score: 4 11/28/2020 10:17 AM CD T documented as of this encounter Care Teams Real Estate Office Supervisor Relationship Specialty Start Date End Date Elsewhere, Pcp PCP - General Family Medicine 07/29/17 [facility] - Laboratory Medicine 04/12/[address] [address] documented as of this encounter
--- OUTSIDE RECORDS SUMMARY | 2022-05-17 18:31 | XMS_ITS | Encounter Summary ---
:1955 Author Organization [facility] Address [address] [place] [address] Care Team Providers Name Role Phone Elsewhere, Pcp Primary Care Provider Unavailable Reason for Visit Reason Comments Med Refill Encounter Details Date Type Department Care Team Description 08/13/2021 Clinical Communication Division of Nephrology Eve Garcia Med Refill and Hypertension in RAMONA, C.N.P., [place], [place] D.N.P. 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 - 08/17/2021 7:24 AM RELASTER I have sent refills to [facility]. He is informed. Thank you. STER Telephone Encounter - Roland Lim - 08/16/2021 3:29 PM CST Patient calls again wondering why he has not received the medication renewal. STER Telephone Encounter - Roland Lim - 08/13/2021 9:23 AM CST Caller is: patient Reason for call: Chief Complaint Patient presents with ??? Med Refill Pertinent Information: Patient needs torsemide refill. He would like it sent to [facility] in [facility]. Preferred Communication Method: [phone] (mobile) Patient pharmacy: [id number] - [place], [place] - [facility] [address] [facility] [address] [facility] [phone] [facility] [place], [place] - [address] [place] [address] [address] [facility] [address] [facility] [place], [place] - [address] [facility] [address] STER documented in 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 [address] [place] [phone] 05/23/2022 Clinical Admitting/Central Communication Scheduling 05/27/2022 Comprehensive Visit Orthopedic Surgery Markus Sams M.D., Ph.D. [address] [place] [address] [phone] 05/29/2022 Office Visit Otorhinolaryngology Dex Matta APRN, C.N.P., M.S.N. [address] [place] [phone] 05/29/2022 Office Visit Otorhinolaryngology Nadeem Maradiaga, P.A.-C., M.S. [address] [place] [address] [phone] 05/31/2022 Appointment Radiology Guilherme Matt MPAS, P.Murtaza.-C., M.S. [address] [place] [phone] 06/05/2022 Appointment Laboratory Medicine Angélica Granger P.A.-C. [address] [place] [phone] 06/19/2022 Appointment Laboratory Medicine Angélica Granger P.A.-C. [address] [place] [address] [phone] 07/03/2022 Appointment Laboratory Medicine Angélica Granger P.A.-C. [address] [place] [phone] 07/17/2022 Appointment Laboratory Medicine Angélica Granger P.A.-C. [address] [place] [address] [phone] 07/31/2022 Appointment Laboratory Medicine Angélica Granger P.A.-C. [address] [place] [phone] 08/14/2022 Appointment Laboratory Medicine Angélica Granger P.A.-C. [address] [place] [phone] 08/28/2022 Appointment Laboratory Medicine Angélica Granger P.A.-C. [address] [place] [phone] documented as of this encounter Visit Diagnoses Not on filedocumented in this encounter Additional Health Concerns Assessment Noted Time PHQ-9 Depression Total Score: 4 11/28/2020 10:17 AM CD T documented as of this encounter Care Teams Executive Legal Secretary Relationship Specialty Start Date End Date Elsewhere, Pcp PCP - General Family Medicine 07/29/17 [facility] - Laboratory Medicine 04/12/[address] [address] documented as of this encounter
--- OUTSIDE RECORDS SUMMARY | 2022-05-17 18:31 | XMS_ITS | Encounter Summary ---
:1955 Author Organization [facility] Address [address] [place] [address] Care Team Providers Name Role Phone Elsewhere, Pcp Primary Care Provider Unavailable Encounter Details Date Type Department Care Team Description 08/22/2021 Hospital Encounter Department of Trung Plasencia Liver (HCC); Laboratory Medicine Edmundo Stern, Medicati on Therapy Gaming Pit Boss Not Anticoagulant; in Jimmie lBake M.S. Colitis Cytomegalovirus (HCC) [address] [phone] [place], [place] [phone] [address] (Work) [phone] Social History Tobacco Use Types Packs/Day Years [...] at Date Recorded Male 05/16/2020 4:27 PM DATA MIGRATION LEAD documented as of this encounter Medications at [...] TWICE DAILY Transplant Liver (HCC), Medication Therapy Prison Not Anticoagulant valGANciclovir (VALCYTE) TAKE 1 TABLET [...] MOUTH DAILY Transplant Liver (HCC), Medication Therapy Gaming Pit Boss Not Anticoagulant sulfamethoxazole-trimeth Take 1 tablet by 14 tablet 0 08/1508/29/2021 oprim (BACTRIM DS) mouth daily for 14 800-160 mg per tablet days. Take after dialysis on dialysis days torsemide (DEMADEX) 10 Take 3 tablets (30 [...] Laboratory Medicine Angélica Granger P.A.-C. [address] [place] [phone] 05/23/2022 Clinical Admitting/Central Communication Scheduling 05/27/2022 Comprehensive Visit Orthopedic Surgery Markus Sams M.D., Ph.D. [address] [place] [phone] 05/29/2022 Office Visit Otorhinolaryngology Dex Matta, RAMONA, C.N.P., M.S.N. [address] [place] [phone] 05/29/2022 Office Visit Otorhinolaryngology Nadeem Maradiaga, P.A.-C., M.S. [address] [place] [phone] 05/31/2022 Appointment Radiology Guilherme Matt MPAS, P.A.-C., M.S. [address] [place] [phone] 06/05/2022 Appointment Laboratory Medicine Angélica Granger P.A.-C. [address] [place] [phone] 06/19/2022 Appointment Laboratory Medicine Angélica Granger P.A.-C. [address] [place] [phone] 07/03/2022 Appointment Laboratory Medicine Angélica Granger P.A.-C. [address] [place] [phone] 07/17/2022 Appointment Laboratory Medicine Angélica Granger P.A.-C. [address] [place] [phone] 07/31/2022 Appointment Laboratory Medicine Angélica Granger P.A.-C. [address] [place] [phone] 08/14/2022 Appointment Laboratory Medicine Angélica Granger P.A.-C. [address] [place] [phone] 08/28/2022 Appointment Laboratory Medicine Angélica Granger P.A.-C. [address] [place] [phone] documented as of this encounter Procedures Procedure Name Priority Date/Time Associated Diagnosis Comme nts TACROLIMUS LEVEL, B Routine 08/22/2021 9:24 Transplant L iver (HCC) Results for this AM DATA MIGRATION LEAD Medication Therapy procedure are in Gaming Pit Boss Not the results Anticoagulant section. Colitis Cytomegalovirus (HCC) CBC WITHOUT Routine 08/22/2021 9:24 Transplant Liver (HCC) Results for this DIFFERENTIAL, B AM DATA MIGRATION LEAD Medication Therapy proced ure are in Gaming Pit Boss Not the results Anticoagulant section. Colitis Cytomegalovirus (HCC) GLUCOSE, FASTING, S/P Routine 08/22/2021 9:24 Transplant Liver (HCC) Results for this AM DATA MIGRATION LEAD Medication Therapy procedure are in Gaming Pit Boss Not the results Anticoagulant section. Colitis Cytomegalovirus (HCC) CMV DNA DETECT/QUANT, Routine 08/22/2021 9:23 Transplant Liver (HCC) Results for this P AM DATA MIGRATION LEAD Medication Therapy procedure are in Gaming Pit Boss Not the results Anticoagulant section. Colitis Cytomegalovirus (HCC) COMPREHENSIVE Routine 08/22/2021 9:23 Transplant Liver (HCC) Results for this METABOLIC PANEL, S/P AM DATA MIGRATION LEAD Medication Therapy p rocedure are in Prison Not the results Anticoagulant section. Colitis Cytomegalovirus (HCC) documented in this encounter Results (ABNORMAL) Tacrolimus, B (08/22/2021 9:24 AM DATA MIGRATION LEAD) athologist Signature Tacrolimus, B 1.8 (L) 5.0-15.0 08/23/2021 [facility] (Trough) 12:12 PM DATA MIGRATION LEAD ng/mL Comment: ----ADDITIONAL INFORMATION---- Target steady-state trough concentration s vary depending on the type of transplant, concomitant immunosuppressio n, clinical/institutional protocols, and time post-transplant. Results should be interpreted in conjunction with this clinical information and any physic al signs/symptoms of rejection/toxicity. Testing performed by Liquid Chromatograp hy-Tandem Mass Spectrometry (LC-MS/MS). This test was developed and its performa nce characteristics determined by [facility] in a manner consistent with CLIA requirements. This test has not been cleared or approved by the U.S. Mer d and Drug Administration. Specimen Anatomical Collection Method Collection Time Receive d Time (Source) Location / / Volume Laterality Blood (Blood, 08/22/2021 9:24 AM 08/24/19 7:22 Venous) DATA MIGRATION LEAD AM DATA MIGRATION LEAD Trung Plasencia P.A.-C. M.S. LAB BLOOD NON ADD-ON Performing Organization Address City/State/ZIP Code Phon e Number [facility] [address] [place], [place] [address] SUPPORT [facility] [place] [address] Laboratory Medicine and Pathology [address] [place] (ABNORMAL) Glucose, Fasting (08/22/2021 9:24 AM DATA MIGRATION LEAD) athologist Signature Glucose, P 185 (H) 70 - 100 08/22/2021 [facility] mg/dL 10:18 AM DATA MIGRATION LEAD Last Intake 1 hr 08/22/2021 [facility] 9:45 AM DATA MIGRATION LEAD Specimen Anatomical Collection Method Collection Time Receive d Time (Source) Location / / Volume Laterality Blood (Blood, 08/22/2021 9:24 AM 08/23/19 9:45 Venous) DATA MIGRATION LEAD AM DATA MIGRATION LEAD Trung Plasencia P.A.-C., M.S. LAB BLOOD NON ADD-ON Performing Organization Address [facility] Phon e Number [address] [address] [place] [address] (ABNORMAL) CBC without Differential (08/22/2021 9:24 AM DATA MIGRATION LEAD) [facility] gist Method Time Signature Hemoglobin 10.6 (L) 13.2 - 08/22/2021 [facility] 16.6 g/dL 11:51 AM DATA MIGRATION LEAD Hematocrit 33.4 (L) 38.3 - 08/22/2021 [facility] 48.6 % 11:51 AM DATA MIGRATION LEAD Erythrocytes 3.42 (L) 4.35 - 08/22/2021 [facility] 5.65 11:51 AM DATA MIGRATION LEAD x10(12)/L MCV 97.7 78.2 - 08/22/2021 [facility] 97.9 fL 11:51 AM DATA MIGRATION LEAD RBC Distrib Width 13.2 11.8 - 08/22/2021 [facility] 14.5 % 11:51 AM DATA MIGRATION LEAD Platelet Count 272 135 - 317 08/22/2021 [facility] x10(9)/L 11:51 AM DATA MIGRATION LEAD Leukocytes 4.8 3.4 - 9.6 08/22/2021 [facility] x10(9)/L 11:52 AM DATA MIGRATION LEAD Specimen Anatomical Collection Method Collection Time Receive d Time (Source) Location / / Volume Laterality Blood (Blood, 08/22/2021 9:24 AM 08/23/19 9:45 Venous) DATA MIGRATION LEAD AM DATA MIGRATION LEAD Trung Plasencia P.A.-C., M.S. LAB BLOOD ADD-ON Performing Organization Address [facility] Phon e Number [address] [address] [place] [address] [address] CMV DNA Detect / Quant, Plasma (08/22/2021 9:23 AM DATA MIGRATION LEAD) Patholo gist Method Time Signature CMV DNA Undetected Undetected 08/23/2021 [facility] Detect/Quant, IU/mL 5:30 PM DATA MIGRATION LEAD P Comment: Result in log IU/mL is Undetected. ----ADDITIONAL INFORMATION---- The quantification range of this assay i s 35 to 10,000,000 IU/mL (1.54 log to 7.00 log IU/mL). Testing was performed u sing the tika CMV test ([employer] with the tika FrameBlast0 System. Specimen Anatomical Collection Method Collection Time Receive d Time (Source) Location / / Volume Laterality Blood (Blood, 08/22/2021 9:23 AM 08/24/19 7:14 Venous) DATA MIGRATION LEAD AM DATA MIGRATION LEAD Trung Plasencia P.A.-C., M.S. LAB MICROBIOLOGY - BLOOD O RDERABLES Performing Organization Address City/State/ZIP Code Phon e Number [facility] [address] [place], [place] [address] SUPPORT CENTER [facility] [place] [address] Laboratory Medicine and Pathology [address] [place] (ABNORMAL) Comprehensive Metabolic Panel (08/22/2021 9:23 AM DATA MIGRATION LEAD) Analysis Performed At Path logist Time Signature Potassium, P 3.9 3.6 - 5.2 08/22/2021 [facility] mmol/L 10:22 AM DATA MIGRATION LEAD Sodium, P 131 (L) 135 - 145 08/22/2021 [facility] mmol/L 10:22 AM DATA MIGRATION LEAD Chloride, P 96 (L) 98 - 107 08/22/2021 [facility] mmol/L 10:22 AM DATA MIGRATION LEAD Bicarbonate, P 22 22 - 29 08/22/2021 [facility] mmol/L 10:22 AM DATA MIGRATION LEAD Anion Gap, P 13 7 - 15 08/22/2021 [facility] 10:22 AM DATA MIGRATION LEAD BUN (Blood Urea 40 (H) 8 - 24 08/22/2021 [facility] Nitrogen), P mg/dL 10:22 AM DATA MIGRATION LEAD Creatinine 3.71 (H) 0.74 - 08/22/2021 [facility] 1.35 mg/dL 10:22 AM DATA MIGRATION LEAD eGFR-Black/Afri 18 (L) >=60 08/22/2021 [facility] can Mozambican mL/min/BSA 10:22 AM DATA MIGRATION LEAD Comment: ----ADDITIONAL INFORMATION---- Estimated GFR calculated using the 2009 CKD_EPI creatinine equation. eGFR Non-Black/ 16 (L) >=60 mL/min/BSA 08/22/2021 10:22 AM DATA MIGRATION LEAD [facility] [place] Comment: ----ADDITIONAL INFORMATION---- Estimated GFR calculated using the 2009 CKD_EPI creatinine equation. Calcium, Total, P 9.0 8.8 - 10.2 mg/dL 08/22/2021 10:2 2 AM DATA MIGRATION LEAD [facility] Glucose, P CANCELED mg/dL 08/22/2021 9:45 AM DATA MIGRATION LEAD [facility] Comment: Duplicate test request. Result canceled by the ancillary. Protein, Total, P 6.7 6.3 - 7.9 g/dL 08/22/2021 10:22 AM DATA MIGRATION LEAD [facility] Albumin, P 4.1 3.5 - 5.0 g/dL 08/22/2021 10:22 AM DATA MIGRATION LEAD [facility] Aspartate Aminotransferase (AST), 25 8 - 48 U/L 08/22 10:22 AM DATA MIGRATION LEAD [facility] P Alkaline Phosphatase, P 121 40 - 129 U/L 08/22/2021 10 :22 AM DATA MIGRATION LEAD [facility] Alanine Aminotransferase (ALT), P 20 7 - 55 U/L 08/22 10:22 AM DATA MIGRATION LEAD [facility] Bilirubin, Total, P 0.2 <=1.2 mg/dL 08/22/2021 10:22 A M DATA MIGRATION LEAD [facility] Specimen Anatomical Collection Method Collection Time Receive d Time (Source) Location / / Volume Laterality Blood (Blood, 08/22/2021 9:23 AM 08/23/19 9:45 Venous) DATA MIGRATION LEAD AM DATA MIGRATION LEAD Trung Plasencia P.A.-C., M.S. LAB BLOOD ADD-ON Performing Organization Address City/State/ZIP Code Phon e Number [facility]- [address] [place] [phone] [place] [address] [place] [address] System [address] documented in this encounter Visit Diagnoses Diagnosis Transplant Liver (HCC) Medication Therapy Prison Not Anticoa gulant Colitis Cytomegalovirus (HCC) documented in this encounter Additional Health Concerns Assessment Noted Time PHQ-9 Depression Total Score: 4 11/28/2020 10:17 AM CD T documented as of this encounter Care Teams Valve Lapper Relationship Specialty Start Date End Date Elsewhere, Pcp PCP - General Family Medicine 07/29/17 [facility] - Laboratory Medicine 04/12/20 [place] [phone] documented as of this encounter
--- OUTSIDE RECORDS SUMMARY | 2022-05-17 18:31 | XMS_ITS | Encounter Summary ---
:1955 Author Organization [facility] Address [address] [place] [address] Care Team Providers Name Role Phone Elsewhere, Pcp Primary Care Provider Unavailable Reason for Referral Outpatient (Routine) - Closed Specialty Diagnoses / Procedures Referred By Contact Refer red To Contact Otorhinolaryngology Toro Pena M.D . [address] [phone] Referral ID Status Reason Start Date Expiration Date Visits Requ ested Visits Authorized [id number] Closed 08/28/2021 08/28/2022 1 1 ATOR/ASSISTANT FOREMAN Reason for Visit Outpatient (Routine) - Closed Specialty Diagnoses / Procedures Referred By Contact Ranjan guillen To Contact Otorhinolaryngology Toro Pena M.D . [address] [phone] Referral ID Status Reason Start Date Expiration Date Visits Requ ested Visits Authorized [id number] Closed 07/03/2021 07/03/2022 1 1 Encounter Details Date Type Department Care Team Description 08/28/2021 Office Visit Department of Toro Pena Rhinosinusiti s Otorhinolaryngology samm Galvan M.D. Chronic (Primary Dx) [place], [place] [address] [place] [address] [place] [phone] Social History Tobacco Use Types Packs/Day Years [...] at Date Recorded Male 05/16/2020 4:27 PM OPERATOR/ASSISTANT FOREMAN documented as of this encounter Progress Notes [...] well. 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 Toro Pena MD [facility] Department of Otorhinolaryngology - Head & Neck Surgery ATOR/ASSISTANT FOREMAN Associated attestation - Toro Pena M.D. - 08/28/2021 12:33 PM OPERATOR/ASSISTANT FOREMAN I saw and evaluated the patient, participating in the garcia portions of the service. I reviewed the resident/PA/nurse practitioner's note. I agree with the examination, assessment and plan. Toro Pena MD [facility] Department of Otorhinolaryngology - Head & Neck Surgery documented in 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 [address] [place] [phone] 05/23/2022 Clinical Admitting/Central Communication Scheduling 05/27/2022 Comprehensive Visit Orthopedic Surgery Markus Sams M.D., Ph.D. [address] [place] [phone] 05/29/2022 Office Visit Otorhinolaryngology Dex Matta APRN, C.N.P., M.S.N. [address] [place] [phone] 05/29/2022 Office Visit Otorhinolaryngology Nadeem Maradiaga, Miri.Marie., M.S. [address] [place] [address] [phone] 05/31/2022 Appointment Radiology Guilherme Matt, RASTA, Jennifer., M.S. [address] [place] [address] [phone] 06/05/2022 Appointment Laboratory Medicine Angélica Granger P.A.-C. [address] [place] [phone] 06/19/2022 Appointment Laboratory Medicine Anéglica Granger P.A.-C. [address] [place] [phone] 07/03/2022 Appointment Laboratory Medicine Angélica Granger P.A.-C. [address] [place] [phone] 07/17/2022 Appointment Laboratory Medicine Angélica Granger P.A.-C. [address] [place] [address] [phone] 07/31/2022 Appointment Laboratory Medicine Angélica Granger P.A.-C. [address] [place] [phone] 08/14/2022 Appointment Laboratory Medicine Angélica Granger P.A.-C. [address] [place] [phone] 08/28/2022 Appointment Laboratory Medicine Angélica Granger P.A.-C. [address] [place] [phone] Scheduled Referrals Name Type Priority Associated Order Schedule Diagnoses Otorhinolaryngology office Outpatient Routine E xpected: visit (clinic) Referral 02/28/2022 (Approximate), Expires: 11/28/2022 documented as of this encounter Procedures Procedure Name Priority Date/Time Associated Diagnosis Comme nts BACTERIAL CULTURE, Routine 08/28/2021 11:51 Rhinosinusitis Chr onic Results for this AEROBIC + SUSC AM OPERATOR/ASSISTANT FOREMAN procedure are in the results section. documented in this encounter Results (ABNORMAL) Bacterial Culture, Aerobic + Susc (08/28/2021 11:51 AM OPERATOR/ASSISTANT FOREMAN) [facility] gist Method Time Signature Bacterial With usual 08/31/2021 DTL Culture, efrem (A) 2:45 PM OPERATOR/ASSISTANT FOREMAN Aerobic + Susc Bacterial SERRATIA MARCESCENS 08/31/2021 DTL Culture, 3+ 2:45 PM OPERATOR/ASSISTANT FOREMAN Aerobic + (A) Susc Comment: This organism [...] 11:51 08/29/19 22 1:47 Sinus, Frontal AM OPERATOR/ASSISTANT FOREMAN PM OPERATOR/ASSISTANT FOREMAN Right) Comment: Specimen Source Site: Swab Organism [...] Number [facility] - [address] [place], [place] [address] [facility] [place] [address] [facility] [address] documented in this encounter Visit Diagnoses Diagnosis Rhinosinusitis Chronic - Primary documented in this encounter Additional Health Concerns Assessment Noted Time PHQ-9 Depression Total Score: 4 11/28/2020 10:17 AM CD T documented as of this encounter Care Teams Doctor Of Podiatric Medicine Relationship Specialty Start Date End Date Elsewhere, Pcp PCP - General Family Medicine 07/29/17 [facility] - Laboratory Medicine 04/12/20 [place] [phone] documented as of this encounter
[2022-05-17 18:32] LABS: Creatinine* 4.3 mg/dL (0.5-1.5); Est. Creatinine Clearance* 16.67; Estimated Glomerular Filt Rate 14 ml/min
--- OUTSIDE RECORDS SUMMARY | 2022-05-17 18:32 | XMS_ITS | Encounter Summary ---
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 [address] [place] [phone] 05/23/2022 Clinical Admitting/Central Communication Scheduling 05/27/2022 Comprehensive Visit Orthopedic Surgery Markus Sams M.D., Ph.D. [address] [place] [phone] 05/29/2022 Office Visit Otorhinolaryngology Dex Matta APRN, C.N.P., M.S.N. [address] [place] [address] [phone] 05/29/2022 Office Visit Otorhinolaryngology Nadeem Maradiaga, PMaryanne., M.S. [address] [place] [phone] 05/31/2022 Appointment Radiology Guilherme Matt MPAS, Jennifer., M.S. [address] [place] [phone] 06/05/2022 Appointment Laboratory Medicine Angélica Granger P.A.-C. [address] [place] [phone] 06/19/2022 Appointment Laboratory Medicine Angélica Granger P.A.-C. [address] [place] [phone] 07/03/2022 Appointment Laboratory Medicine Angélica Granger P.A.-C. [address] [place] [phone] 07/17/2022 Appointment Laboratory Medicine Angélica Granger P.A.-C. [address] [place] [phone] 07/31/2022 Appointment Laboratory Medicine Angélica Granger P.A.-C. [address] [place] [phone] 08/14/2022 Appointment Laboratory Medicine Angélica Granger P.A.-C. [address] [place] [phone] 08/28/2022 Appointment Laboratory Medicine Angélica Granger P.A.-C. [address] [place] [phone] documented as of this encounter Procedures Procedure Name Priority Date/Time Associated Comments Diagnosis OTORHINOLARYNGOLOGY IMAGE Routine 07/31/2021 9:45 Results for this EXAM AM FIELD CLERK procedure are i n the results section. documented in this encounter Results NOSE-Otorhinolaryngology Image Exam (07/31/2021 9:45 AM FIELD CLERK) Specimen (Source) Anatomical Collection Method Collection Time Re ceived Time Location / / Volume Laterality 07/31/2021 9:42 AM FIELD CLERK Narrative [facility] - 07/31/2021 10:08 AM FIELD CLERK This order has been created and auto-finalized [...] as of this encounter Care Teams Control Integration Engineer Relationship Specialty Start Date End Date Elsewhere, Pcp PCP - General Family Medicine 07/29/17 [facility] - Laboratory Medicine 04/12/20 [place] [phone] documented as of this encounter
--- OUTSIDE RECORDS SUMMARY | 2022-05-17 18:32 | XMS_ITS | Encounter Summary ---
:1955 Author Organization [facility] Address [address] [place] [id number] Care Team Providers Name Role Phone Elsewhere, Pcp Primary Care Provider Unavailable Encounter Details Date Type Department Care Team Description 08/10/2021 Orders Only Division of Nephrology and Elissa Wilcox A PRN, Hypertension, Jainism C.N.P. 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 [address] [place] [phone] 05/23/2022 Clinical Admitting/Central Communication Scheduling 05/27/2022 Comprehensive Visit Orthopedic Surgery Markus Sams M.D., Ph.D. [address] [place] [phone] 05/29/2022 Office Visit Otorhinolaryngology Dex Matta APRN, C.N.P., M.S.N. [address] [place] [phone] 05/29/2022 Office Visit Otorhinolaryngology Nadeem Maradiaga, P.Murtaza.-Arley., M.S. [address] [place] [address] [phone] 05/31/2022 Appointment Radiology Guilherme Matt MPAS, Jennifer., M.S. [address] [place] [phone] 06/05/2022 Appointment Laboratory Medicine Angélica Granger P.A.-C. [address] [place] [phone] 06/19/2022 Appointment Laboratory Medicine Angélica Granger P.A.-C. [address] [place] [phone] 07/03/2022 Appointment Laboratory Medicine Angélica Granger P.A.-C. [address] [place] [phone] 07/17/2022 Appointment Laboratory Medicine Angélica Granger P.A.-C. [address] [place] [phone] 07/31/2022 Appointment Laboratory Medicine Angélica Grangre P.A.-C. [address] [place] [phone] 08/14/2022 Appointment Laboratory Medicine Angélica Granger P.A.-C. [address] [place] [phone] 08/28/2022 Appointment Laboratory Medicine Angélica Granger P.A.-C. [address] [place] [phone] documented as of this encounter Visit Diagnoses Not on filedocumented in this encounter Additional Health Concerns Assessment Noted Time PHQ-9 Depression Total Score: 4 11/28/2020 10:17 AM CD T documented as of this encounter Care Teams Shear Helper Relationship Specialty Start Date End Date Elsewhere, Pcp PCP - General Family Medicine 07/29/17 [facility] - Laboratory Medicine 04/12/[address] [phone] documented as of this encounter
--- OUTSIDE RECORDS SUMMARY | 2022-05-17 18:32 | XMS_ITS | Encounter Summary ---
:1955 Author Organization [facility] Address [address] [place] [address] Care Team Providers Name Role Phone Elsewhere, Pcp Primary Care Provider Unavailable Reason for Visit Reason Comments External Lab Entry 08/03/2021 Encounter Details Date Type Department Care Team Description 08/09/2021 Clinical Curt Garces Transplant, Laboratory Equipment Cleaner al Lab Entry Communication Center for Coordinator, (08/03/2021) Transplantation and R.N. 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 [address] [place] [phone] 05/23/2022 Clinical Admitting/Central Communication Scheduling 05/27/2022 Comprehensive Visit Orthopedic Surgery Markus Sams M.D., Ph.D. [address] [place] [phone] 05/29/2022 Office Visit Otorhinolaryngology Dex Matta APRN, C.N.P., M.S.N. [address] [place] [phone] 05/29/2022 Office Visit Otorhinolaryngology Nadeem Maradiaga, P.A.-C., M.S. [address] [place] [phone] 05/31/2022 Appointment Radiology Guilherme Matt MPAS, P.Murtaza.-Arley., M.S. [address] [place] [phone] 06/05/2022 Appointment Laboratory Medicine Angélica Granger P.A.-C. [address] [place] [phone] 06/19/2022 Appointment Laboratory Medicine Angélica Granger P.A.-C. [address] [place] [phone] 07/03/2022 Appointment Laboratory Medicine Angélica Granger P.A.-C. [address] [place] [phone] 07/17/2022 Appointment Laboratory Medicine Angélica Granger P.A.-C. [address] [place] [phone] 07/31/2022 Appointment Laboratory Medicine Angélica Granger P.A.-C. [address] [place] [phone] 08/14/2022 Appointment Laboratory Medicine Angélica Granger P.A.-C. [address] [place] [phone] 08/28/2022 Appointment Laboratory Medicine Angélica Granger P.A.-C. [address] [place] [phone] documented as of this encounter Procedures Procedure Name Priority Date/Time Associated Diagnosis Comme nts EXTP Routine 08/03/2021 9:10 AM Results f or this TRANSPLANT/LIVER - PRODUCER DIRECTOR procedure are in BLOOD, EXTERNAL LAB the resu lts RESULTS section. documented in this encounter Results Transplant/Liver - Blood, External Lab Results (08/03/2021 9:10 AM PRODUCER DIRECTOR) P athologist Signature EXT CMV DNA <200 Quant, P Specimen (Source) Anatomical Collection Method Collection Time Re ceived Time Location / / Volume Laterality Blood 08/03/2021 9:10 AM PRODUCER DIRECTOR Narrative This result has an attachment that is no t available. Historical Provider LAB BLOOD NON ADD-ON documented in this encounter Visit Diagnoses Not on filedocumented in this encounter Additional Health Concerns Assessment Noted Time PHQ-9 Depression Total Score: 4 11/28/2020 10:17 AM CD T documented as of this encounter Care Teams Sql Report Developer Relationship Specialty Start Date End Date Elsewhere, Pcp PCP - General Family Medicine 07/29/17 [facility] - Laboratory Medicine 04/12/[address] [address] documented as of this encounter
--- OUTSIDE RECORDS SUMMARY | 2022-05-17 18:32 | XMS_ITS | Encounter Summary ---
:1955 Author Organization [facility] Address [address] [place] [address] Care Team Providers Name Role Phone Elsewhere, Pcp Primary Care Provider Unavailable Reason for Visit Reason Comments Med Refill Encounter Details Date Type Department Care Team Description 08/08/2021 Refill Curt Rene [facility] for BaldemarWillis matthew M.D. Med Refill Transplantation and Clinical 200 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 [address] [place] [phone] 05/23/2022 Clinical Admitting/Central Communication Scheduling 05/27/2022 Comprehensive Visit Orthopedic Surgery Markus Sams M.D., Ph.D. [address] [place] [phone] 05/29/2022 Office Visit Otorhinolaryngology Dex Matta APRN, C.N.P., M.S.N. [address] [place] [phone] 05/29/2022 Office Visit Otorhinolaryngology Nadeem Maradiaga, P.Murtaza.-Arley., M.S. [address] [place] [address] [phone] 05/31/2022 Appointment Radiology Guilherme Matt MPAS, PMaryanne., M.S. [address] [place] [address] [phone] 06/05/2022 Appointment Laboratory Medicine Angélica Granger P.A.-C. [address] [place] [address] [phone] 06/19/2022 Appointment Laboratory Medicine Angélica Granger P.A.-C. [address] [place] [phone] 07/03/2022 Appointment Laboratory Medicine Angélica Granger P.A.-C. [address] [place] [phone] 07/17/2022 Appointment Laboratory Medicine Angélica Granger P.A.-C. [address] [place] [phone] 07/31/2022 Appointment Laboratory Medicine Angélica Granger P.A.-C. [address] [place] [phone] 08/14/2022 Appointment Laboratory Medicine Angélica Granger P.A.-C. [address] [place] [phone] 08/28/2022 Appointment Laboratory Medicine Angélica Granger P.A.-C. [address] [place] [phone] documented as of this encounter Visit Diagnoses Diagnosis Transplant Liver (HCC) Medication Therapy Alf Not Anticoa gulant Colitis Cytomegalovirus (HCC) documented in this encounter Additional Health Concerns Assessment Noted Time PHQ-9 Depression Total Score: 4 11/28/2020 10:17 AM CD T documented as of this encounter Care Teams Lead Driver Relationship Specialty Start Date End Date Elsewhere, Pcp PCP - General Family Medicine 07/29/17 [facility] - Laboratory Medicine 04/12/[address] [address] documented as of this encounter
--- OUTSIDE RECORDS SUMMARY | 2022-05-17 18:32 | XMS_ITS | Encounter Summary ---
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 [address] [place] [address] Referral ID Status Reason Start Date Expiration Date Visits Requ ested Visits Authorized [id number] Closed 08/08/2021 08/08/2022 1 1 Scheduling Instructions Please schedule with annual eval in November ROBIN- please schedule with annual in November . 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 [address] [place] [address] [phone] Referral ID Status Reason Start Date Expiration Date Visits Requ ested Visits Authorized [id number] Closed 08/08/2021 08/08/2022 1 1 ONENTS ENGINEER Encounter Details Date Type Department Care Team Description 08/03/2021 Clinical Communication Irena Gamez [place] for R, R.N. Transplantation and [address] Clinical Regeneration in [place], [place] [phone] 200 [facility] [phone] [place] [phone] (Work) [phone] Social History Tobacco Use Types Packs/Day Years [...] at Date Recorded Male 05/16/2020 4:27 PM COMPONENTS ENGINEER documented as of this encounter Miscellaneous Notes Addendum Note - Roman Tariq R.N. - 08/08/2021 11:11 AM COMPONENTS ENGINEER Addended by: ROMAN TARIQ on: 08/08/2021 11:11 AM Modules accepted: Orders ONENTS ENGINEER Telephone Encounter - Roman Tariq R.N. - 08/08/2021 11:10 AM CST Orders placed for weekly labs at [facility]. PICC removal scheduled. IV Ganciclovir discontinued. PO Valcyte prescription sent to patient's local [facility]. ONENTS ENGINEER Telephone Encounter - Roman Tariq R.N. - 08/08/2021 8:53 AM CST I [...] for Bruce and arrange PICC removal here. ONENTS ENGINEER Telephone Encounter - Roman Tariq R.N. - 08/06/2021 4:08 PM CST Please [...] on any changes or recommendations. Thanks, Roman Tariq R.N. *All labs are now found in [employer] - Lab - Flowsheets. For further review of labs, please review there or under Synopsis* ONENTS ENGINEER Telephone Encounter - Sienna Gamboa - 08/03/2021 1:47 PM CST Argelia from [facility] is calling in needing a signature for ganciclovir that was faxed over on 07/25/21. If needed please contact her back. #[phone] Thank you ONENTS ENGINEER documented in 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 [address] [place] [phone] 05/23/2022 Clinical Admitting/Central Communication Scheduling 05/27/2022 Comprehensive Visit Orthopedic Surgery Markus Sams M.D., Ph.D. [address] [place] [phone] 05/29/2022 Office Visit Otorhinolaryngology Dex Matta APRN, C.N.P., M.S.N. [address] [place] [phone] 05/29/2022 Office Visit Otorhinolaryngology Nadeem Maradiaga P.A.-C., M.S. [address] [place] [phone] 05/31/2022 Appointment Radiology Guilherme Matt MPAS, P.A.-C., M.S. [address] [place] [phone] 06/05/2022 Appointment Laboratory Medicine Angélica Granger P.A.-C. [address] [place] [phone] 06/19/2022 Appointment Laboratory Medicine Angélica Granger P.A.-C. [address] [place] [phone] 07/03/2022 Appointment Laboratory Medicine Angélica Granger P.A.-C. [address] [place] [phone] 07/17/2022 Appointment Laboratory Medicine Angélica Granger P.A.-C. [address] [place] [phone] 07/31/2022 Appointment Laboratory Medicine Angélica Granger P.A.-C. [address] [place] [phone] 08/14/2022 Appointment Laboratory Medicine Angélica Granger P.A.-C. [address] [place] [phone] 08/28/2022 Appointment Laboratory Medicine Angélica Granger P.A.-C. [address] [place] [address] Scheduled Referrals Name Type Priority Associated Diagnoses Order S chedule Transplant Liver Outpatient Routine Transplant Live r (HCC) Expected: office visit Referral Medication Therapy Long 11/2021 (clinic) Term Not Anticoa gulant (Approximate), Colitis Cytomegalovirus Expi res: (HCC) 11/05/2022 documented as of this encounter Results (ABNORMAL) Tacrolimus, B (11/28/2021 8:19 AM CDT) athologist Signature Tacrolimus, B 2.0 (L) 5.0-15.0 11/29/2021 [facility] (Trough) 10:36 AM CDT ng/mL Comment: [...] performa nce characteristics determined by [facility] in a manner consistent with CLIA [...] Phon e Number [facility] [address]ELLA Humphrey [phone] [facility] [place] [address] Laboratory Medicine and Pathology [address] MUR[place]O CMV DNA Detect / Quant, Plasma (11/28/2021 8:19 AM CDT) Patholo gist Method Time Signature CMV DNA Undetected Undetected 11/29/2021 [facility] Detect/Quant, IU/mL 11:56 AM P CDT Comment: Result in log IU/mL is Undetected. ----ADDITIONAL INFORMATION---- The quantification range of this assay i s 35 to 10,000,000 IU/mL (1.54 log to 7.00 log IU/mL). Testing was performed u sing the tika CMV test ([employer] with the tiak Modusly0 System. Specimen Anatomical Collection Method Collection Time Receive d Time (Source) Location / / Volume Laterality Blood (Blood, 11/28/2021 8:19 AM 11/30/19 7:10 Venous) CDT AM CDT Trung Plasencia P.A.-C., M.S. LAB MICROBIOLOGY - BLOOD O RDERABLES Performing Organization Address City/State/ZIP Code Phon e Number [facility] [address] [place] [address] [address] [facility] [place] [address] Laboratory Medicine and Pathology [address] [place] [address] Dr. MURILLO (ABNORMAL) Glucose, Fasting (11/28/2021 8:19 [...] ADD-ON Performing Organization Address City/[facility]/ZIP Code Phon e Number [address] [address] [place] [address] System in [address] (ABNORMAL) Comprehensive Metabolic Panel (11/28/2021 8:19 [...] eGFR-Black/Afri 20 (L) >=60 11/28/2021 CNFL can Trin[place] mL/min/BSA 8:51 AM CDT Comment: ----ADDITIONAL INFORMATION---- Estimated GFR calculated using the 2009 CKD_EPI creatinine equation. eGFR Non-Black/ 17 (L) >=60 mL/min/BSA 11/28/2021 8:51 AM CDT CNFL [place] Comment: ----ADDITIONAL INFORMATION---- Estimated GFR calculated using [...] M.SDemetrius LAB BLOOD ADD-ON Performing Organization Address City/State/ZIP Code Phon e Number [facility]- [address] [place] [address] [place] [address] [address] (ABNORMAL) CBC without Differential (11/28/2021 8:19 AM CDT) [facility] gist Method Time Signature Hemoglobin 9.5 [...] M.S. LAB BLOOD ADD-ON Performing Organization Address City/[facility]/ZIP Code Phon e Number [facility]- [address] [place] [address] [place] [address] [address] (ABNORMAL) Tacrolimus, B (11/21/2021 8:02 AM CDT) P athologist Signature Tacrolimus, B <1.0 (L) 5.0-15.0 11/22/2021 [facility] (Trough) 11:07 AM CDT ng/mL Comment: [...] performa nce characteristics determined by [facility] in a manner consistent with CLIA [...] ADD-ON Performing Organization Address City/[facility]/ZIP Code Phon e Number [facility] [address] [place] [address] [facility]PPORT [facility] [address] Laboratory Medicine and Pathology [address] [place]O (ABNORMAL) CMV DNA Detect / Quant, Plasma (11/21/2021 8:02 AM CDT) Patholo gist Method Time Signature CMV DNA <35 (A) Undetected 11/22/2021 [facility] Detect/Quant, IU/mL 2:12 PM CDT P [...] u sing the tika CMV test (Y[employer]iel [employer] with the tika [id number] System. Specimen Anatomical Collection Method Collection Time Receive d Time (Source) Location / / Volume Laterality Blood (Blood, 11/21/2021 8:02 AM 11/23/19 7:13 Venous) CDT AM CDT Trung Plasencia P.A.-C., M.S. LAB MICROBIOLOGY - BLOOD O RDERABLES Performing Organization Address City/[facility]/ZIP [facility] Phon e Number [facility] [address] [place], [place] [address] [place] [address] [facility] [place] [address] Laboratory Medicine and Pathology [address] M[place]ILLO (ABNORMAL) Glucose, Fasting (11/21/2021 8:02 [...] ADD-ON Performing Organization Address City/[facility] Phon e Number [address] [address] [place] [address] System [address] (ABNORMAL) Comprehensive Metabolic Panel (11/21/2021 8:02 [...] eGFR-Black/Afri 22 (L) >=60 11/21/2021 CNFL can [place] mL/min/BSA 8:50 AM CDT Comment: ----ADDITIONAL INFORMATION---- Estimated GFR calculated using the 2009 CKD_EPI creatinine equation. eGFR Non-Black/ 19 (L) >=60 mL/min/BSA 11/21/2021 8:50 AM CDT CNFL Trin[place] Comment: ----ADDITIONAL INFORMATION---- Estimated GFR calculated using [...] 11/22/19 22 8:04 Venous) CDT AM CDT Trnug Plasencia P.A.-C., M.S. LAB BLOOD ADD-ON Performing Organization Address [facility] Phon e Number [address] [address] [place] [address] System [address] (ABNORMAL) CBC without Differential (11/21/2021 8:02 AM CDT) [facility] Method Time Signature Hemoglobin 9.9 (L) 13.2 [...] M.S. LAB BLOOD ADD-ON Performing Organization Address City/[facility] Phon e Number [address] [address] [place] [address] System in [place] [address] [address] (ABNORMAL) Tacrolimus, B (11/14/2021 7:32 AM CDT) athologist Signature Tacrolimus, B <1.0 (L) 5.0-15.0 11/15/2021 [facility] (Trough) 10:11 AM CDT ng/mL Comment: [...] performa nce characteristics determined by [facility] in a manner consistent with CLIA [...] Phon e Number [facility] [address] [place], [place] [address] [address] [facility] [address] Laboratory Medicine and Pathology [address] [place] (ABNORMAL) CMV DNA Detect / Quant, Plasma (11/14/2021 7:32 AM CDT) [facility] Method Time Signature CMV DNA <35 (A) Undetected 11/15/2021 [facility] Detect/Quant, IU/mL 5:52 PM CDT P Comment: Result in log IU/mL is <1.54. CMV DNA is detected, but level present i s <35 IU/mL (<1.54 log IU/mL). This assay cannot accurately quantify CMV DNA below this level. ----ADDITIONAL INFORMATION---- The quantification range of this assay i s 35 to 10,000,000 IU/mL (1.54 log to 7.00 log IU/mL). Testing was performed u bulmaro the tika CMV test ([employer]iel [employer] with the tika 6800 System. Specimen Anatomical Collection Method Collection Time Receive d Time (Source) Location / / Volume Laterality Blood (Blood, 11/14/2021 7:32 AM 11/16/19 7:39 Venous) CDT AM CDT Trung Plasencia P.A.-C., MDemetriusS. LAB MICROBIOLOGY - BLOOD O RDERABLES Performing Organization Address City/[facility]/ZIP Code Phon e Number [facility] [address] [place], [place] [address] [facility] CENTER [facility] [place] [address] Laboratory Medicine and Pathology [address] [place] (ABNORMAL) Glucose, Fasting (11/14/2021 [...] ADD-ON Performing Organization Address City/[facility] Phon e Number [address] [address] [place] [address] [address] (ABNORMAL) Comprehensive Metabolic Panel (11/14/2021 7:32 [...] eGFR-Black/Afri 20 (L) >=60 11/14/2021 CNFL can [place] mL/min/BSA 8:20 AM CDT Comment: ----ADDITIONAL INFORMATION---- Estimated GFR calculated using the 2009 CKD_EPI creatinine equation. eGFR Non-Black/ 17 (L) >=60 mL/min/BSA 11/14/2021 8:20 AM CDT CNFL Trin[place] Comment: ----ADDITIONAL INFORMATION---- Estimated GFR calculated using [...] Code Phon e Number [facility]- [address] [place] [address] [place] [address] System [address] (ABNORMAL) CBC without Differential (11/14/2021 7:32 AM CDT) Patholo gist Method [...] Code Phon e Number [facility]- [address] [place] [address] [place] [address] System [address] (ABNORMAL) Tacrolimus, B (11/07/2021 8:31 AM CDT) athologist Signature Tacrolimus, B <1.0 (L) 5.0-15.0 11/08/2021 [facility] (Trough) 10:47 AM CDT ng/mL [...] performa nce characteristics determined by [facility] in a manner consistent with CLIA requirements. This test has not been cleared or approved by the U.S. Mer d and Drug Administration. Specimen Anatomical Collection Method Collection Time Receive d Time (Source) Location / / Volume Laterality Blood (Blood, 11/07/2021 8:31 AM 11/09/19 7:06 Venous) CDT AM CDT Trung Plasencia P.A.-C., M.S. LAB BLOOD NON ADD-ON Performing Organization Address City/State/[facility] Code Phon e Number [facility] [address] [place], [place] [address] SUPPORT CENTER [facility] [place] [address] Laboratory Medicine and Pathology [address] [place] (ABNORMAL) CMV DNA Detect / Quant, Plasma (11/07/2021 8:31 AM CDT) [facility] Method Time Signature CMV DNA <35 (A) Undetected 11/08/2021 [facility] Detect/Quant, IU/mL 7:22 PM CDT [...] performed u sing the tika CMV test ([employer] with the tika Modusly0 System. Specimen Anatomical Collection Method Collection Time Receive d Time (Source) Location / / Volume Laterality Blood (Blood, 11/07/2021 8:31 AM 11/08/19 8:44 Venous) CDT PM CDT Trung Plasencia P.A.-C., M.S. LAB MICROBIOLOGY - BLOOD O RDERABLES Performing Organization Address City/[facility]/ZIP Code Phon e Number [facility] [address] [place] Humphrey [address] [place], [place] [address] [address] Laboratory Medicine and Pathology [address] MURILLO Glucose, Fasting (11/07/2021 8:31 AM [...] ADD-ON Performing Organization Address City/[facility] Phon e Number [address] [address] [place] [address] [address] (ABNORMAL) Comprehensive Metabolic Panel (11/07/2021 8:31 [...] eGFR-Black/Afri 25 (L) >=60 11/07/2021 CNFL can [place] mL/min/BSA 9:02 AM CDT Comment: ----ADDITIONAL INFORMATION---- Estimated GFR calculated using the 2009 CKD_EPI creatinine equation. eGFR Non-Black/ 21 (L) >=60 mL/min/BSA 11/07/2021 9:02 AM CDT CNFL [place] Comment: ----ADDITIONAL INFORMATION---- Estimated GFR calculated using [...] Code Phon e Number [facility]- [address] [place] [address] [place] [address] System [address] (ABNORMAL) CBC without Differential (11/07/2021 8:31 [...] Code Phon e Number [facility]- [address] [place] [address] [place] [address] [place] [address] System [address] (ABNORMAL) Tacrolimus, B (10/31/2021 8:28 AM [...] performa nce characteristics determined by [facility] in a manner consistent with CLIA requirements. This test has not been cleared or approved by the U.S. Mer d and Drug Administration. Specimen Anatomical Collection Method Collection Time Receive d Time (Source) Location / / Volume Laterality Blood (Blood, 10/31/2021 8:28 AM 11/02/19 22 7:25 Venous) CDT AM CDT Trung Plasencia P.A.-C. M.S. LAB BLOOD NON ADD-ON Performing Organization Address City/State/[facility] Code Phon e Number [facility] [address] [place], [place] [address] [address] [facility] [address] Laboratory Medicine and Pathology [address] M[place]ILLO (ABNORMAL) CMV DNA Detect / Quant, Plasma (10/31/2021 8:28 AM CDT) [facility] Method Time Signature CMV DNA <35 (A) Undetected 11/01/2021 [facility] Detect/Quant, IU/mL 11:52 AM CDT P [...] IU/mL). Testing was performed u sing the itka CMV test ([employer] with the tika 6800 System. Specimen Anatomical Collection Method Collection Time Receive d Time (Source) Location / / Volume Laterality Blood (Blood, 10/31/2021 8:28 AM 11/02/19 22 7:04 Venous) CDT AM CDT Trung Plasencia P.A.-C. M.S. LAB MICROBIOLOGY - BLOOD O RDERABLES Performing Organization Address City/State/ZIP Code Phon e Number [facility] [address] [place], [place] [address] [address] [facility] [place] [address] Laboratory Medicine and Pathology [address] M[place]ILLO (ABNORMAL) Glucose, Fasting (10/31/2021 8:28 [...] ADD-ON Performing Organization Address City/[facility] Phon e Number [address] [address] [place] [address] System [address] (ABNORMAL) Comprehensive Metabolic Panel (10/31/2021 8:28 [...] eGFR-Black/Afri 19 (L) >=60 10/31/2021 CNFL can Trin[place] mL/min/BSA 8:57 AM CDT Comment: ----ADDITIONAL INFORMATION---- Estimated GFR calculated using the 2009 CKD_EPI creatinine equation. eGFR Non-Black/ 16 (L) >=60 mL/min/BSA 10/31/2021 8:57 AM CDT CNFL [place] Comment: ----ADDITIONAL INFORMATION---- Estimated GFR calculated using [...] Code Phon e Number [facility]- [address] [place] [address] [place] [address] System in [address] (ABNORMAL) CBC without Differential (10/31/2021 8:28 [...] LAB BLOOD ADD-ON Performing Organization Address City/State/[facility] Code Phon e Number [facility]- [address] [place] [address] [place] [address] System [address] (ABNORMAL) Tacrolimus, B (10/24/2021 9:00 AM [...] performa nce characteristics determined by [facility] in a manner consistent with CLIA [...] ADD-ON Performing Organization Address City/[facility] Phon e Number [facility] [address] [place] [address] SUPPORT [facility] [address] Laboratory Medicine and Pathology [address] [place] [address] Dr. MURILLO (ABNORMAL) CMV DNA Detect / Quant, Plasma (10/24/2021 9:00 AM CDT) [facility] gist Method Time Signature CMV DNA 146 (A) Undetected 10/25/2021 [facility] Detect/Quant, IU/mL 5:16 PM CDT P Comment: Result in log IU/mL is 2.16. ----ADDITIONAL INFORMATION---- The quantification range of this assay i s 35 to 10,000,000 IU/mL (1.54 log to 7.00 log IU/mL). Testing was performed u sing the tika CMV test ([employer] with the tika 6800 System. Specimen Anatomical Collection Method Collection Time Receive d Time (Source) Location / / Volume Laterality Blood (Blood, 10/24/2021 9:00 AM 10/26/19 22 7:23 Venous) CDT AM CDT Trung Plasencia P.A.-C. M.SDemetrius LAB MICROBIOLOGY - BLOOD O RDERABLES Performing Organization Address City/[facility] Code Phon e Number [facility] [address] [place] [address] [address] [facility] [place] [address] Laboratory Medicine and Pathology [address] [place] [address] Dr. MURILLO (ABNORMAL) Comprehensive Metabolic Panel (10/24/2021 9:00 AM CDT) Analysis Performed At [facility] logist Time Signature Potassium, P 3.4 [...] eGFR-Black/Afri 17 (L) >=60 10/24/2021 CNFL can [place] mL/min/BSA 9:26 AM CDT Comment: ----ADDITIONAL INFORMATION---- Estimated GFR calculated using the 2009 CKD_EPI creatinine equation. eGFR Non-Black/ <15 (L) >=60 mL/min/BSA 10/24/2021 9:26 AM CDT CNFL [place] Comment: ----ADDITIONAL INFORMATION---- Estimated GFR calculated using [...] Code Phon e Number [facility]- [address] [place] [address] [place] [address] [address] (ABNORMAL) CBC without Differential (10/24/2021 9:00 AM CDT) [facility] gist Method Time Signature Hemoglobin 10.2 (L) [...] M.S. LAB BLOOD ADD-ON Performing Organization Address [facility] Phon e Number [address] [address] [place] [address] System [address] (ABNORMAL) Glucose, Fasting (10/24/2021 8:57 AM CDT) athologist Signature Glucose, P 149 (H) 70 [...] ADD-ON Performing Organization Address City/[facility] Code Phon e Number [facility]- [address] [place] [address] [place] [address] [address] (ABNORMAL) Tacrolimus, B (10/17/2021 8:38 AM CDT) athologist [facility] Tacrolimus, B 1.5 (L) 5.0-15.0 10/18/2021 [facility] [...] performa nce characteristics determined by [facility] in a manner consistent with CLIA requirements. This test has not been cleared or approved by the U.S. Mer d and Drug Administration. Specimen Anatomical Collection Method Collection Time Receive d Time (Source) Location / / Volume Laterality Blood (Blood, 10/17/2021 8:38 AM 10/19/19 22 7:11 Venous) CDT AM CDT Trung lPasencia P.A.-C., M.S. LAB BLOOD NON ADD-ON Performing Organization Address [facility] Phon e Number [facility] [address] [place] [address] SU[address] [facility] [address] Laboratory Medicine and Pathology [address] [place] [address] Dr. MURILLO (ABNORMAL) CMV DNA Detect / Quant, Plasma (10/17/2021 8:38 AM CDT) [facility] Method Time Signature CMV DNA 545 (A) Undetected 10/18/2021 [facility] Detect/Quant, IU/mL 2:26 AM CDT P Comment: Result in log IU/mL is 2.74. ----ADDITIONAL INFORMATION---- The quantification range of this assay i s 35 to 10,000,000 IU/mL (1.54 log to 7.00 log IU/mL). Testing was performed u sing the tika CMV test ([employer] with the tika [id number] System. Specimen Anatomical Collection Method Collection Time Receive d Time (Source) Location / / Volume Laterality Blood (Blood, 10/17/2021 8:38 AM 10/18/19 22 8:21 Venous) CDT PM CDT Trung Plasencia P.A.-C., M.S. LAB MICROBIOLOGY - BLOOD O RDERABLES Performing Organization Address City/[facility] Code Phon e Number [address] [place] [address] 05 [facility] [place] [address] Laboratory Medicine and Pathology [address] [place] [address] Dr. MURILLO (ABNORMAL) Glucose, Fasting (10/17/2021 8:38 [...] Code Phon e Number [facility]- [address] [place] [address] [place] [address] [address] (ABNORMAL) Comprehensive Metabolic Panel (10/17/2021 8:38 AM CDT) Analysis Performed At [facility] [place] logist Time Signature Potassium, P 4.0 3.6 [...] eGFR-Black/Afri 18 (L) >=60 10/17/2021 CNFL can Trin[place] mL/min/BSA 9:07 AM CDT Comment: ----ADDITIONAL INFORMATION---- Estimated GFR calculated using the 2009 CKD_EPI creatinine equation. eGFR Non-Black/ 15 (L) >=60 mL/min/BSA 10/17/2021 9:07 AM CDT CNFL Trin[place] Comment: ----ADDITIONAL INFORMATION---- Estimated GFR calculated using [...] Code Phon e Number [facility]- [address] [place] [address] [place] [address] System [place] [address] (ABNORMAL) CBC without Differential (10/17/2021 8:38 AM CDT) [facility] gist Method Time Signature Hemoglobin 8.9 [...] M.S. LAB BLOOD ADD-ON Performing Organization Address [facility] Phon e Number [address] [address] [place] [address] System in [address] (ABNORMAL) Glucose, Fasting (10/10/2021 9:36 AM [...] ADD-ON Performing Organization Address City/[facility] Phon e Number [address] [address] [place] [address] System in [address] (ABNORMAL) Tacrolimus, B (10/10/2021 9:35 AM [...] performa nce characteristics determined by [facility] in a manner consistent with CLIA requirements. This test has not been cleared or approved by the U.S. Mer d and Drug Administration. Specimen Anatomical Collection Method Collection Time Receive d Time (Source) Location / / Volume Laterality Blood (Blood, 10/10/2021 9:35 AM 10/12/19 7:11 Venous) CDT AM CDT Trung Plasencia P.A.-C. M.SDemetrius LAB BLOOD NON ADD-ON Performing Organization Address [facility] Phon e Number [facility] [address] [place] [address] Dr [place] [phone] [address] [facility] [place] [address] Laboratory Medicine and Pathology [address] [place] [address] Dr. MURILLO (ABNORMAL) CMV DNA Detect / Quant, Plasma (10/10/2021 9:35 AM CDT) [facility] Method Time Signature CMV DNA 2170 (A) Undetected 10/11/2021 [facility] Detect/Quant, IU/mL 11:53 AM CDT P Comment: Result in log IU/mL is 3.34. ----ADDITIONAL INFORMATION---- The quantification range of this assay i s 35 to 10,000,000 IU/mL (1.54 log to 7.00 log IU/mL). Testing was performed u sing the tika CMV test ([employer] with the tika [id number] System. Specimen Anatomical Collection Method Collection Time Receive d Time (Source) Location / / Volume Laterality Blood (Blood, 10/10/2021 9:35 AM 10/11/19 8:00 Venous) CDT PM CDT Trung Plasencia P.A.-C. M.S. LAB MICROBIOLOGY - BLOOD O RDERABLES Performing Organization Address [facility] Phon e Number [address] [place] [address] [place], [place] [address] [address] Laboratory Medicine and Pathology [address] MURILLO (ABNORMAL) Comprehensive Metabolic Panel (10/10/2021 9:35 AM CDT) Analysis [facility] Time Signature Potassium, P 3.8 3.6 - [...] eGFR-Black/Afri 36 (L) >=60 10/10/2021 CNFL can [place] mL/min/BSA 10:00 AM CDT Comment: ----ADDITIONAL INFORMATION---- Estimated GFR calculated using the 2009 CKD_EPI creatinine equation. eGFR Non-Black/ 31 (L) >=60 mL/min/BSA 10/10/2021 10:00 AM CDT CNFL Trin[place] Comment: ----ADDITIONAL INFORMATION---- Estimated GFR calculated using [...] Organization Address City/State/ZIP Code Phon e Number [address] [address] [place] [address] System [address] (ABNORMAL) CBC without Differential (10/10/2021 9:35 AM CDT) [facility] gist Method Time Signature Hemoglobin 9.8 [...] LAB BLOOD ADD-ON Performing Organization Address City/State/[facility] Code Phon e Number [address] [address] [place] [address] System [place] [address] (ABNORMAL) Tacrolimus, B (10/03/2021 8:37 AM CDT) P athologist Signature Tacrolimus, B 1.7 (L) 5.0-15.0 10/04/2021 [facility] (Trough) 11:04 AM CDT ng/mL [...] performa nce characteristics determined by [facility] in a manner consistent with CLIA [...] Phon e Number [facility] [address] [place], [place] [address] [address] [facility] [place] [address] Laboratory Medicine and Pathology [address] MURILLO (ABNORMAL) CMV DNA Detect / Quant, Plasma (10/03/2021 8:37 AM CDT) Patholo gist Method Time Signature CMV DNA 158 (A) Undetected 10/04/2021 [facility] Detect/Quant, IU/mL 2:04 PM CDT P Comment: Result in log IU/mL is 2.20. ----ADDITIONAL INFORMATION---- The quantification range of this assay i s 35 to 10,000,000 IU/mL (1.54 log to 7.00 log IU/mL). Testing was performed u sing the tika CMV test ([employer] with the tika [id number] System. Specimen Anatomical Collection Method Collection Time Receive d Time (Source) Location / / Volume Laterality Blood (Blood, 10/03/2021 8:37 AM 10/04/19 8:56 Venous) CDT PM CDT Trung Plasencia P.A.-C., M.S. LAB MICROBIOLOGY - BLOOD O RDERABLES Performing Organization Address City/[facility] Phon e Number [facility] [address] [place], [place] [address] [place], [place] [address]t. [place] [address] Laboratory Medicine and Pathology [address] [place] [address] Dr. MURILLO (ABNORMAL) Glucose, Fasting (10/03/2021 8:37 [...] ADD-ON Performing Organization Address City/[facility] Phon e Number [address] [address] [place] [address] System in [address] (ABNORMAL) Comprehensive Metabolic Panel (10/03/2021 8:37 [...] eGFR-Black/Afri 18 (L) >=60 10/03/2021 CNFL can Trin[place] mL/min/BSA 9:00 AM CDT Comment: ----ADDITIONAL INFORMATION---- Estimated GFR calculated using the 2009 CKD_EPI creatinine equation. eGFR Non-Black/ 16 (L) >=60 mL/min/BSA 10/03/2021 9:00 AM CDT CNFL Trin[place] Comment: ----ADDITIONAL INFORMATION---- Estimated GFR calculated using [...] M.S. LAB BLOOD ADD-ON Performing Organization Address [facility] Phon e Number [address] [address] [place] [address] System [address] (ABNORMAL) CBC without Differential (10/03/2021 8:37 AM CDT) [facility] gist Method Time Signature Hemoglobin 9.6 [...] M.S. LAB BLOOD ADD-ON Performing Organization Address City/[facility] Phon e Number [address] [place] [address] [place] [address] System in [address] (ABNORMAL) Tacrolimus, B (09/27/2021 10:37 AM CDT) athologist Signature Tacrolimus, B 1.4 (L) 5.0-15.0 09/28/2021 [facility] (Trough) 12:36 PM CDT ng/mL Comment: [...] performa nce characteristics determined by [facility] in a manner consistent with CLIA [...] Phon e Number [facility] [address] [place] [address] SUPPORT CENTER [facility] [place] [address] Laboratory Medicine and Pathology [address] [place] [address] Dr. MURILLO (ABNORMAL) CMV DNA Detect / Quant, Plasma (09/27/2021 10:37 AM CDT) Patholo gist Method Time Signature CMV DNA <35 (A) Undetected 09/28/2021 [facility] Detect/Quant, IU/mL 8:13 PM CDT P [...] u sing the tika CMV test ([employer] with the tika 6800 System. Specimen Anatomical Collection Method Collection Time Receive d Time (Source) Location / / Volume Laterality Blood (Blood, 09/27/2021 10:37 09/28/2021 7:09 Venous) AM CDT AM CDT Trung Plasencia P.A.-C., M.S. LAB MICROBIOLOGY - BLOOD O RDERABLES Performing Organization Address City/[facility] Phon e Number [facility] [address] [place], [place] [address] [place] [address] CENTER [facility] [place] [address] Laboratory Medicine and Pathology [address] [place] [address] Dr. MURILLO (ABNORMAL) Glucose, Fasting (09/27/2021 10:37 [...] LAB BLOOD NON ADD-ON Performing Organization Address [facility] Phon e Number [place] [address] [place] [address] [place] [address] System in [address] (ABNORMAL) Comprehensive Metabolic Panel (09/27/2021 10:37 [...] eGFR-Black/Afri 20 (L) >=60 09/27/2021 CNFL can Trin[place] mL/min/BSA 10:58 AM CDT Comment: ----ADDITIONAL INFORMATION---- Estimated GFR calculated using the 2009 CKD_EPI creatinine equation. eGFR Non-Black/ 17 (L) >=60 mL/min/BSA 09/27/2021 10:58 AM CDT CNFL Trin[place] Comment: ----ADDITIONAL INFORMATION---- Estimated GFR calculated using [...] LAB BLOOD ADD-ON Performing Organization Address City/State/[facility] Code Phon e Number [address] [address] [place] [address] System [address] (ABNORMAL) CBC without Differential (09/27/2021 10:37 AM CDT) [facility] gist Method Time Signature Hemoglobin [...] LAB BLOOD ADD-ON Performing Organization Address City/State/[facility] Code Phon e Number [address] [address] [place] [address] System in [address] (ABNORMAL) Glucose, Fasting (09/19/2021 8:40 AM [...] Code Phon e Number [facility]- [address] [place] [address] [place] [address] System [address] (ABNORMAL) CBC without Differential (09/19/2021 8:40 [...] M.S. LAB BLOOD ADD-ON Performing Organization Address City/[facility]/ZIP Code Phon e Number [facility]- [address] [place] [address] [place] [address] [place] [address] System [address] (ABNORMAL) Tacrolimus, B (09/19/2021 8:39 AM CDT) P athologist Signature Tacrolimus, B 1.5 (L) 5.0-15.0 09/20/2021 [facility] (Trough) 11:46 AM CDT ng/mL Comment: [...] performa nce characteristics determined by [facility] in a manner consistent with CLIA [...] ADD-ON Performing Organization Address City/[facility]/ZIP Code Phon e Number [facility] [address] [place], [place] [address] SUPPORT [facility] [address] Laboratory Medicine and Pathology [address] MURILLO (ABNORMAL) CMV DNA Detect / Quant, Plasma (09/19/2021 8:39 AM CDT) Patholo gist Method Time Signature CMV DNA <35 (A) Undetected 09/20/2021 [facility] Detect/Quant, IU/mL 12:59 AM CDT P [...] u sing the tika CMV test ([employer] with the tika 6800 System. Specimen Anatomical Collection Method Collection Time Receive d Time (Source) Location / / Volume Laterality Blood (Blood, 09/19/2021 8:39 AM 09/20/19 22 7:56 Venous) CDT PM CDT Trung Plasencia P.A.-C., M.S. LAB MICROBIOLOGY - BLOOD O RDERABLES Performing Organization Address City/State/ZIP Code Phon e Number [facility] [address] [place], [place] [address] [facility] [place] [address] Laboratory Medicine and Pathology [address] [...] eGFR-Black/Afri 17 (L) >=60 09/19/2021 CNFL can [place] mL/min/BSA 9:14 AM CDT Comment: ----ADDITIONAL INFORMATION---- Estimated GFR calculated using the 2009 CKD_EPI creatinine equation. eGFR Non-Black/ <15 (L) >=60 mL/min/BSA 09/19/2021 9:14 AM CDT CNFL Trin[place] Comment: ----ADDITIONAL INFORMATION---- Estimated GFR calculated using [...] Organization Address City/State/ZIP Code Phon e Number [place] [address] [place] [address] [place] [address] System in [address] (ABNORMAL) Tacrolimus, B (09/12/2021 8:35 AM CDT) [...] performa nce characteristics determined by [facility] in a manner consistent with CLIA requirements. This test has not been cleared or approved by the U.S. Mer d and Drug Administration. Specimen Anatomical Collection Method Collection Time Receive d Time (Source) Location / / Volume Laterality Blood (Blood, 09/12/2021 8:35 AM 09/14/19 22 7:27 Venous) CDT AM CDT Trung Plasencia P.A.-C. M.S. LAB BLOOD NON ADD-ON Performing Organization Address [facility] Phon e Number [facility] [address] [place], [place] [address] SUPPORT CENTER [facility] [place] [address] Laboratory Medicine and Pathology [address] [place] [address] Dr. MURILLO CMV DNA Detect / Quant, Plasma (09/12/2021 8:35 AM CDT) [facility] Method Time Signature CMV DNA Undetected Undetected 2021 [facility] Detect/Quant, IU/mL 2:23 PM CDT P Comment: Result in log IU/mL is Undetected. ----ADDITIONAL INFORMATION---- The quantification range of this assay i s 35 to 10,000,000 IU/mL (1.54 log to 7.00 log IU/mL). Testing was performed u sing the tika CMV test ([employer] with the tika 6800 System. Specimen Anatomical Collection Method Collection Time Receive d Time (Source) Location / / Volume Laterality Blood (Blood, 09/12/2021 8:35 AM 09/14/19 22 7:13 Venous) CDT AM CDT Trung Plasencia P.A.-C., M.S. LAB MICROBIOLOGY - BLOOD O RDERABLES Performing Organization Address [facility] Phon e Number [facility] [address] CHIDI [place] [address] [place] [address] [place] [address] Laboratory Medicine and Pathology [address] M[place]ILLO (ABNORMAL) Glucose, Fasting (09/12/2021 8:35 [...] Organization Address City/State/ZIP Code Phon e Number [address] [address] [place] [address] System [address] (ABNORMAL) Comprehensive Metabolic Panel (09/12/2021 8:35 [...] eGFR-Black/Afri 19 (L) >=60 09/12/2021 CNFL can [place] mL/min/BSA 9:06 AM CDT Comment: ----ADDITIONAL INFORMATION---- Estimated GFR calculated using the 2009 CKD_EPI creatinine equation. eGFR Non-Black/ 16 (L) >=60 mL/min/BSA 09/12/2021 9:06 AM CDT CNFL [place] Comment: ----ADDITIONAL INFORMATION---- Estimated GFR calculated using [...] Organization Address City/State/ZIP Code Phon e Number [address] [address] [place] [address] System in [address] (ABNORMAL) CBC without Differential (09/12/2021 8:35 [...] LAB BLOOD ADD-ON Performing Organization Address City/State/[facility] Code Phon e Number [facility]- [address] [place] [address] [place] [address] [address] (ABNORMAL) Tacrolimus, B (09/05/2021 8:24 AM [...] performa nce characteristics determined by [facility] in a manner consistent with CLIA [...] ADD-ON Performing Organization Address City/[facility]/ZIP Code Phon e Number [facility] [address] [place], [place] [address] [place], [place] [address] [address] Laboratory Medicine and Pathology [address] M[place]ILLO (ABNORMAL) Glucose, Fasting (09/05/2021 8:24 [...] ADD-ON Performing Organization Address City/[facility] Phon e Number [address] [address] [place] [address] System in [address] (ABNORMAL) Comprehensive Metabolic Panel (09/05/2021 8:24 [...] eGFR-Black/Afri 20 (L) >=60 09/05/2021 CNFL can Trin[place] mL/min/BSA 8:52 AM CDT Comment: ----ADDITIONAL INFORMATION---- Estimated GFR calculated using the 2009 CKD_EPI creatinine equation. eGFR Non-Black/ 17 (L) >=60 mL/min/BSA 09/05/2021 8:52 AM CDT CNFL [place] Comment: ----ADDITIONAL INFORMATION---- Estimated GFR calculated using [...] LAB BLOOD ADD-ON Performing Organization Address City/State/[facility] Code Phon e Number [address] [address] [place] [address] System [address] (ABNORMAL) CBC without Differential (09/05/2021 8:24 AM CDT) [facility] [employer] Method Time Signature Hemoglobin 10.6 (L) 13.2 [...] Code Phon e Number [facility]- [address] [place] [address] [place] [address] [address] CMV DNA Detect / Quant, Plasma (09/05/2021 8:23 AM CDT) Patholo gist Method Time Signature CMV DNA Undetected Undetected 09/06/2021 [facility] Detect/Quant, IU/mL 5:49 PM CDT P Comment: Result in log IU/mL is Undetected. ----ADDITIONAL INFORMATION---- The quantification range of this assay i s 35 to 10,000,000 IU/mL (1.54 log to 7.00 log IU/mL). Testing was performed u sing the tika CMV test ([employer] with the tika 6800 System. Specimen Anatomical Collection Method Collection Time Receive d Time (Source) Location / / Volume Laterality Blood (Blood, 09/05/2021 8:23 AM 09/07/19 7:08 Venous) CDT AM CDT Trung Plasecnia P.A.-C., M.S. LAB MICROBIOLOGY - BLOOD O RDERABLES Performing Organization Address City/State/ZIP Code Phon e Number [facility] [address] [place], [place] [address] SUPPORT CENTER [facility] [place] [address] Laboratory Medicine and Pathology [address] [place] [address] Dr. MURILLO (ABNORMAL) Glucose, Fasting (08/29/2021 7:25 AM COMPONENTS ENGINEER) P athologist Signature Glucose, P 120 (H) 70 - 100 08/29/2021 CNFL mg/dL 7:54 AM COMPONENTS ENGINEER Last Intake 10 hr 08/29/2021 CNFL 7:31 AM COMPONENTS ENGINEER Specimen Anatomical Collection Method Collection Time Receive d Time (Source) Location / / Volume Laterality Blood (Blood, 08/29/2021 7:25 AM 08/30/19 7:31 Venous) COMPONENTS ENGINEER AM COMPONENTS ENGINEER Trung Plasencia P.A.-C., M.S. LAB BLOOD NON ADD-ON Performing Organization Address City/[facility] Phon e Number [place] [address] [place] [address] [place] [address] System [address] (ABNORMAL) Comprehensive Metabolic Panel (08/29/2021 7:25 AM COMPONENTS ENGINEER) Analysis Performed At Patho logist Time Signature Potassium, P 3.7 3.6 - 5.2 08/29/2021 CNFL mmol/L 7:57 AM COMPONENTS ENGINEER Sodium, P 136 135 - 145 08/29/2021 CNFL mmol/L 7:57 AM COMPONENTS ENGINEER Chloride, P 99 98 - 107 08/29/2021 CNFL mmol/L 7:57 AM COMPONENTS ENGINEER Bicarbonate, P 21 (L) 22 - 29 08/29/2021 CNFL mmol/L 7:57 AM COMPONENTS ENGINEER Anion Gap, P 16 (H) 7 - 15 08/29/2021 CNFL 7:57 AM COMPONENTS ENGINEER BUN (Blood Urea 44 (H) 8 - 24 08/29/2021 CNFL Nitrogen), P mg/dL 7:57 AM COMPONENTS ENGINEER Creatinine 3.72 (H) 0.74 - 08/29/2021 CNFL 1.35 mg/dL 7:57 AM COMPONENTS ENGINEER eGFR-Black/Afri 18 (L) >=60 08/29/2021 CNFL can Trin[place] mL/min/BSA 7:57 AM COMPONENTS ENGINEER Comment: ----ADDITIONAL INFORMATION---- Estimated GFR calculated using the 2009 CKD_EPI creatinine equation. eGFR Non-Black/ 16 (L) >=60 mL/min/BSA 08/29/2021 7:57 AM COMPONENTS ENGINEER CNFL [place] Comment: ----ADDITIONAL INFORMATION---- Estimated GFR calculated using the 2009 CKD_EPI creatinine equation. Calcium, Total, P 9.3 8.8 - 10.2 mg/dL 08/29/2021 7:57 AM COMPONENTS ENGINEER CNFL Glucose, P CANCELED mg/dL 08/29/2021 7:31 AM COMPONENTS ENGINEER CNFL Comment: Duplicate test request. Result canceled by the ancillary. Protein, Total, P 6.5 6.3 - 7.9 g/dL 08/29/2021 7:57 A M COMPONENTS ENGINEER CNFL Albumin, P 4.1 3.5 - 5.0 g/dL 08/29/2021 7:57 AM COMPONENTS ENGINEER C NFL Aspartate Aminotransferase (AST), 22 8 - 48 U/L 08/29 7:57 AM COMPONENTS ENGINEER CNFL P Alkaline Phosphatase, P 123 40 - 129 U/L 08/29/2021 7: 57 AM COMPONENTS ENGINEER CNFL Alanine Aminotransferase (ALT), P 19 7 - 55 U/L 08/29 7:57 AM COMPONENTS ENGINEER CNFL Bilirubin, Total, P 0.2 <=1.2 mg/dL 08/29/2021 7:57 AM COMPONENTS ENGINEER CNFL Specimen Anatomical Collection Method Collection Time Receive d Time (Source) Location / / Volume Laterality Blood (Blood, 08/29/2021 7:25 AM 08/30/19 7:31 Venous) COMPONENTS ENGINEER AM COMPONENTS ENGINEER Trung Plasencia P.A.-C., M.S. LAB BLOOD ADD-ON Performing Organization Address City/[facility] Phon e Number [address] [address] [place] [address] (ABNORMAL) CBC without Differential (08/29/2021 7:25 AM COMPONENTS ENGINEER) [facility] gist Method Time Signature Hemoglobin 9.9 (L) 13.2 - 08/29/2021 CNFL 16.6 g/dL 8:19 AM COMPONENTS ENGINEER Hematocrit 30.9 (L) 38.3 - 08/29/2021 CNFL 48.6 % 8:19 AM COMPONENTS ENGINEER Erythrocytes 3.16 (L) 4.35 - 08/29/2021 CNFL 5.65 8:19 AM COMPONENTS ENGINEER x10(12)/L MCV 97.8 78.2 - 08/29/2021 CNFL 97.9 fL 8:19 AM COMPONENTS ENGINEER RBC Distrib Width 13.2 11.8 - 08/29/2021 CNFL 14.5 % 8:19 AM COMPONENTS ENGINEER Platelet Count 238 135 - 317 08/29/2021 CNFL x10(9)/L 8:19 AM COMPONENTS ENGINEER Leukocytes 4.8 3.4 - 9.6 08/29/2021 CNFL x10(9)/L 8:19 AM COMPONENTS ENGINEER Specimen Anatomical Collection Method Collection Time Receive d Time (Source) Location / / Volume Laterality Blood (Blood, 08/29/2021 7:25 AM 08/30/19 22 7:31 Venous) COMPONENTS ENGINEER AM COMPONENTS ENGINEER Trung Plasencia P.A.-C. M.S. LAB BLOOD ADD-ON Performing Organization Address City/State/ZIP Code Phon e Number [address] [address] [place] [address] System [address] (ABNORMAL) Tacrolimus, B (08/29/2021 7:24 AM COMPONENTS ENGINEER) P athologist Signature Tacrolimus, B 2.5 (L) 5.0-15.0 08/30/2021 [facility] (Trough) 10:56 AM COMPONENTS ENGINEER ng/mL Comment: ----ADDITIONAL INFORMATION---- Target steady-state [...] performa nce characteristics determined by [facility] in a manner consistent with CLIA requirements. This test has not been cleared or approved by the U.S. Mer d and Drug Administration. Specimen Anatomical Collection Method Collection Time Receive d Time (Source) Location / / Volume Laterality Blood (Blood, 08/29/2021 7:24 AM 08/31/19 7:30 Venous) COMPONENTS ENGINEER AM COMPONENTS ENGINEER Trung Plasencia P.A.-C., M.S. LAB BLOOD NON ADD-ON Performing Organization Address City/State/ZIP Code Phon e Number [facility] [address] [place], [place] [address] SUPPORT CENTER [facility] [place] [address] Laboratory Medicine and Pathology [address] [place] (ABNORMAL) CMV DNA Detect / Quant, Plasma (08/29/2021 7:24 AM COMPONENTS ENGINEER) Patholo gist Method Time Signature CMV DNA <35 (A) Undetected 08/30/2021 [facility] Detect/Quant, IU/mL 4:21 PM COMPONENTS ENGINEER P Comment: Result in log IU/mL [...] (Blood, 08/29/2021 7:24 AM 08/30/19 8:08 Venous) COMPONENTS ENGINEER PM COMPONENTS ENGINEER Trung Plasencia P.A.-C. MDemetriusSDemetrius LAB MICROBIOLOGY - BLOOD O RDERABLES Performing Organization Address City/[facility] Phon e Number [address] [place] [address] Laboratory Medicine and Pathology [address] [place] [address] Dr. MURILLO (ABNORMAL) Tacrolimus, B (08/22/2021 9:24 AM COMPONENTS ENGINEER) athologist Signature Tacrolimus, B 1.8 (L) 5.0-15.0 08/23/2021 [facility] (Trough) 12:12 PM COMPONENTS ENGINEER ng/mL Comment: ----ADDITIONAL INFORMATION---- Target steady-state [...] performa nce characteristics determined by [facility] in a manner consistent with CLIA requirements. This test has not been cleared or approved by the U.S. Mer d and Drug Administration. Specimen Anatomical Collection Method Collection Time Receive d Time (Source) Location / / Volume Laterality Blood (Blood, 08/22/2021 9:24 AM 08/24/19 22 7:22 Venous) COMPONENTS ENGINEER AM COMPONENTS ENGINEER Trung Plasencia P.A.-C. MDemetriusSDemetrius LAB BLOOD NON ADD-ON Performing Organization Address City/[facility] Phon e Number [address] [place] [address] [place] [address] Laboratory Medicine and Pathology [address] [place] [address] Dr. MURILLO (ABNORMAL) Glucose, Fasting (08/22/2021 9:24 AM COMPONENTS ENGINEER) athologist Signature Glucose, P 185 (H) 70 - 100 08/22/2021 CNFL mg/dL 10:18 AM COMPONENTS ENGINEER Last Intake 1 hr 08/22/2021 CNFL 9:45 AM COMPONENTS ENGINEER Specimen Anatomical Collection Method Collection Time Receive d Time (Source) Location / / Volume Laterality Blood (Blood, 08/22/2021 9:24 AM 08/23/19 9:45 Venous) COMPONENTS ENGINEER AM COMPONENTS ENGINEER Trung Plasencia P.A.-C., M.S. LAB BLOOD NON ADD-ON Performing Organization Address [facility] Phon e Number [address] [address] [place] [address] (ABNORMAL) CBC without Differential (08/22/2021 9:24 AM COMPONENTS ENGINEER) Patholo gist Method Time Signature Hemoglobin 10.6 (L) 13.2 - 08/22/2021 CN[facility] 16.6 g/dL 11:51 AM COMPONENTS ENGINEER Hematocrit 33.4 (L) 38.3 - 08/22/2021 CN[facility] 48.6 % 11:51 AM COMPONENTS ENGINEER Erythrocytes 3.42 (L) 4.35 - 08/22/2021 CNFL 5.65 11:51 AM COMPONENTS ENGINEER x10(12)/L MCV 97.7 78.2 - 08/22/2021 CNFL 97.9 fL 11:51 AM COMPONENTS ENGINEER RBC Distrib Width 13.2 11.8 - 08/22/2021 CNFL 14.5 % 11:51 AM COMPONENTS ENGINEER Platelet Count 272 135 - 317 08/22/2021 CNFL x10(9)/L 11:51 AM COMPONENTS ENGINEER Leukocytes 4.8 3.4 - 9.6 08/22/2021 CNFL x10(9)/L 11:52 AM COMPONENTS ENGINEER Specimen Anatomical Collection Method Collection Time Receive d Time (Source) Location / / Volume Laterality Blood (Blood, 08/22/2021 9:24 AM 08/23/19 9:45 Venous) COMPONENTS ENGINEER AM COMPONENTS ENGINEER Trung Plasencia P.A.-C., M.S. LAB BLOOD ADD-ON Performing Organization Address City/[facility]/ZIP Code Phon e Number [address] [address] [place] [address] System [address] CMV DNA Detect / Quant, Plasma (08/22/2021 9:23 AM COMPONENTS ENGINEER) Patholo gist Method Time Signature CMV DNA Undetected Undetected 08/23/2021 [facility] Detect/Quant, IU/mL 5:30 PM COMPONENTS ENGINEER P Comment: Result in log IU/mL is Undetected. ----ADDITIONAL INFORMATION---- The quantification range of this assay i s 35 to 10,000,000 IU/mL (1.54 log to 7.00 log IU/mL). Testing was performed u sing the tika CMV test ([employer] with the tika [id number] System. Specimen Anatomical Collection Method Collection Time Receive d Time (Source) Location / / Volume Laterality Blood (Blood, 08/22/2021 9:23 AM 08/24/19 7:14 Venous) COMPONENTS ENGINEER AM COMPONENTS ENGINEER Trung Plasencia P.A.-C., M.S. LAB MICROBIOLOGY - BLOOD O RDERABLES Performing Organization Address City/State/ZIP Code Phon e Number [facility] [address] [place] [address] [address] [facility] [address] Laboratory Medicine and Pathology [address] [place] (ABNORMAL) Comprehensive Metabolic Panel (08/22/2021 9:23 AM COMPONENTS ENGINEER) Analysis Performed At Patho logist Time Signature Potassium, P 3.9 3.6 - 5.2 08/22/2021 CNFL mmol/L 10:22 AM COMPONENTS ENGINEER Sodium, P 131 (L) 135 - 145 08/22/2021 CN[facility] mmol/L 10:22 AM COMPONENTS ENGINEER Chloride, P 96 (L) 98 - 107 08/22/2021 CNFL mmol/L 10:22 AM COMPONENTS ENGINEER Bicarbonate, P 22 22 - 29 08/22/2021 CNFL mmol/L 10:22 AM COMPONENTS ENGINEER Anion Gap, P 13 7 - 15 08/22/2021 CNFL 10:22 AM COMPONENTS ENGINEER BUN (Blood Urea 40 (H) 8 - 24 08/22/2021 CNFL Nitrogen), P mg/dL 10:22 AM COMPONENTS ENGINEER Creatinine 3.71 (H) 0.74 - 08/22/2021 CNFL 1.35 mg/dL 10:22 AM COMPONENTS ENGINEER eGFR-Black/Afri 18 (L) >=60 08/22/2021 CNFL can Trinidadian mL/min/BSA 10:22 AM COMPONENTS ENGINEER Comment: ----ADDITIONAL INFORMATION---- Estimated GFR calculated using the 2009 CKD_EPI creatinine equation. eGFR Non-Black/ 16 (L) >=60 mL/min/BSA 08/22/2021 10:22 AM COMPONENTS ENGINEER CNFL Trinidadian Comment: ----ADDITIONAL INFORMATION---- Estimated GFR calculated using the 2009 CKD_EPI creatinine equation. Calcium, Total, P 9.0 8.8 - 10.2 mg/dL 08/22/2021 10:2 2 AM COMPONENTS ENGINEER CNFL Glucose, P CANCELED mg/dL 08/22/2021 9:45 AM COMPONENTS ENGINEER CNFL Comment: Duplicate test request. Result canceled by the ancillary. Protein, Total, P 6.7 6.3 - 7.9 g/dL 08/22/2021 10:22 AM COMPONENTS ENGINEER CNFL Albumin, P 4.1 3.5 - 5.0 g/dL 08/22/2021 10:22 AM COMPONENTS ENGINEER CNFL Aspartate Aminotransferase (AST), 25 8 - 48 U/L 08/22 10:22 AM COMPONENTS ENGINEER CNFL P Alkaline Phosphatase, P 121 40 - 129 U/L 08/22/2021 10 :22 AM COMPONENTS ENGINEER CNFL Alanine Aminotransferase (ALT), P 20 7 - 55 U/L 08/22 10:22 AM COMPONENTS ENGINEER CNFL Bilirubin, Total, P 0.2 <=1.2 mg/dL 08/22/2021 10:22 A M COMPONENTS ENGINEER CNFL Specimen Anatomical Collection Method Collection Time Receive d Time (Source) Location / / Volume Laterality Blood (Blood, 08/22/2021 9:23 AM 08/23/19 9:45 Venous) COMPONENTS ENGINEER AM COMPONENTS ENGINEER Trung Plasencia P.A.-C., M.S. LAB BLOOD ADD-ON Performing Organization Address City/State/ZIP Code Phon e Number [facility]- [address] [place] [address] [place] [address] IR PICC Line Removal (08/14/2021 10:34 AM COMPONENTS ENGINEER) Anatomical Region Laterality Modality Chest, Pelvis, Abdomen, Vascular Interventional RST LOS, N/A X-Ray Angiography Vascular Interventional ARZ LOS, Vascular Interventional FLA LOS Specimen (Source) Anatomical Collection Method Collection Time Re ceived Time Location / / Volume Laterality 08/14/2021 2:18 PM COMPONENTS ENGINEER Impressions 08/14/2021 2:20 PM COMPONENTS ENGINEER Successful removal of left internal jugular vein tunneled PICC line NR Narrative 08/14/2021 2:20 PM COMPONENTS ENGINEER EXAM: IR PICC LINE REMOVAL CLINICAL [...] PROCEDURES (ABNORMAL) Glucose, Fasting (08/14/2021 8:21 AM COMPONENTS ENGINEER) athologist Signature Glucose, P 196 (H) 70 - 100 08/14/2021 DTL mg/dL 9:34 AM COMPONENTS ENGINEER Last Intake 1 hr 08/14/2021 DTL 8:57 AM COMPONENTS ENGINEER Specimen Anatomical Collection Method Collection Time Receive d Time (Source) Location / / Volume Laterality Blood (Blood, 08/14/2021 8:21 AM 08/14/19 8:57 Venous) COMPONENTS ENGINEER AM COMPONENTS ENGINEER Trung Plasencia P.A.-C., M.S. LAB BLOOD NON ADD-ON Performing Organization Address City/State/[facility] Code Phon e Number [facility] - [address] [place], [place] [address] [place] [address] Laboratories-[facility] [address] (ABNORMAL) Tacrolimus, B (08/14/2021 8:20 AM COMPONENTS ENGINEER) athologist Signature Tacrolimus, B 4.0 (L) 5.0-15.0 08/14/2021 [facility] (Trough) 12:27 PM COMPONENTS ENGINEER ng/mL Comment: ----ADDITIONAL INFORMATION---- Target steady-state [...] performa nce characteristics determined by [facility] in a manner consistent with CLIA requirements. This test has not been cleared or approved by the U.S. Mer d and Drug Administration. Specimen Anatomical Collection Method Collection Time Receive d Time (Source) Location / / Volume Laterality Blood (Blood, 08/14/2021 8:20 AM 08/14/19 9:44 Venous) COMPONENTS ENGINEER AM COMPONENTS ENGINEER Trung Plasencia P.A.-C., M.S. LAB BLOOD NON ADD-ON Performing Organization Address [facility] Phon e Number [facility] [address] [place] [phone] [facility] [place] [address] Laboratory Medicine and Pathology [address] [place] [address] Dr. MURILLO CMV DNA Detect / Quant, Plasma (08/14/2021 8:20 AM COMPONENTS ENGINEER) [facility] gist Method Time Signature CMV DNA Undetected Undetected 08/14/2021 [facility] Detect/Quant, IU/mL 9:53 PM COMPONENTS ENGINEER P Comment: Result in log IU/mL is Undetected. ----ADDITIONAL INFORMATION---- The quantification range of this assay i s 35 to 10,000,000 IU/mL (1.54 log to 7.00 log IU/mL). Testing was performed u sing the tika CMV test ([employer] with the tika 6800 System. Specimen Anatomical Collection Method Collection Time Receive d Time (Source) Location / / Volume Laterality Blood (Blood, 08/14/2021 8:20 AM 08/14/19 Venous) COMPONENTS ENGINEER 11:07 AM COMPONENTS ENGINEER Lynn Gonzalez P.A.-C.SDemetrius LAB MICROBIOLOGY - BLOOD O RDERABLES Performing Organization Address City/[facility] Phon e Number [facility] [address] [place] [phone] [address] [facility] [place] [address] Laboratory Medicine and Pathology [address] [place] [address] Dr. MURILLO (ABNORMAL) Comprehensive Metabolic Panel (08/14/2021 8:20 AM COMPONENTS ENGINEER) Analysis Performed At [facility] Time Signature Potassium, S 3.9 3.6 - 5.2 08/14/2021 DTL mmol/L 9:27 AM COMPONENTS ENGINEER Sodium, S 130 (L) 135 - 145 08/14/2021 DTL mmol/L 9:27 AM COMPONENTS ENGINEER Chloride, S 95 (L) 98 - 107 08/14/2021 DTL mmol/L 9:27 AM COMPONENTS ENGINEER Bicarbonate, S 22 22 - 29 08/14/2021 DTL mmol/L 9:27 AM COMPONENTS ENGINEER Anion Gap 13 7 - 15 08/14/2021 DTL 9:27 AM COMPONENTS ENGINEER BUN (Blood Urea 27 (H) 8 - 24 08/14/2021 DTL Nitrogen), S mg/dL 9:27 AM COMPONENTS ENGINEER Creatinine 3.05 (H) 0.74 - 08/14/2021 DTL 1.35 mg/dL 9:27 AM COMPONENTS ENGINEER eGFR-Non 20 (L) >=60 08/14/2021 DTL Black/ mL/min/BSA 9:27 AM COMPONENTS ENGINEER Trinidadian Comment: ----ADDITIONAL INFORMATION---- Estimated GFR calculated using the 2009 CKD_EPI creatinine equation. eGFR-Black/ 23 (L) >=60 mL/min/BSA 2021 9:27 AM COMPONENTS ENGINEER DTL Comment: ----ADDITIONAL INFORMATION---- Estimated GFR calculated using the 2009 CKD_EPI creatinine equation. Calcium, Total, S 8.6 (L) 8.8 - 10.2 mg/dL 08/14/2021 9:27 AM COMPONENTS ENGINEER DTL Glucose, S CANCELED mg/dL 08/14/2021 9:04 AM COMPONENTS ENGINEER DTL Comment: Duplicate test request. Result canceled by the ancillary. Protein, Total, S 6.1 (L) 6.3 - 7.9 g/dL 08/14/2021 9:27 A M COMPONENTS ENGINEER DTL Albumin, S 3.8 3.5 - 5.0 g/dL 08/14/2021 9:27 AM COMPONENTS ENGINEER D TL Aspartate Aminotransferase 17 8 - 48 U/L 08/14/2021 9 :27 AM COMPONENTS ENGINEER DTL (AST), S Alkaline Phosphatase, S 119 40 - 129 U/L 08/14/2021 9: 27 AM COMPONENTS ENGINEER DTL Alanine Aminotransferase (ALT), 14 7 - 55 U/L 022 9:27 AM COMPONENTS ENGINEER DTL S Bilirubin, Total, S 0.4 <=1.2 mg/dL 08/14/2021 9:27 AM COMPONENTS ENGINEER DTL Specimen Anatomical Collection Method Collection Time Receive d Time (Source) Location / / Volume Laterality Blood (Blood, 08/14/2021 8:20 AM 08/14/19 9:04 Venous) COMPONENTS ENGINEER AM COMPONENTS ENGINEER Trung Plasencia P.A.-C., M.S. LAB BLOOD ADD-ON Performing Organization Address City/[facility] Phon e Number [facility] - [address] [place] [address] [facility] [place] [place] [address] [facility] 200 [facility] (ABNORMAL) CBC without Differential (08/14/2021 8:20 AM COMPONENTS ENGINEER) [facility] gist Method Time Signature Hemoglobin 9.6 (L) 13.2 - 08/14/2021 DTL 16.6 g/dL 8:59 AM COMPONENTS ENGINEER Hematocrit 30.3 (L) 38.3 - 08/14/2021 DTL 48.6 % 8:59 AM COMPONENTS ENGINEER Erythrocytes 3.10 (L) 4.35 - 08/14/2021 DTL 5.65 8:59 AM COMPONENTS ENGINEER x10(12)/L MCV 97.7 78.2 - 08/14/2021 DTL 97.9 fL 8:59 AM COMPONENTS ENGINEER RBC Distrib Width 14.5 11.8 - 08/14/2021 DTL 14.5 % 8:59 AM COMPONENTS ENGINEER Platelet Count 282 135 - 317 08/14/2021 DTL x10(9)/L 8:59 AM COMPONENTS ENGINEER Leukocytes 7.4 3.4 - 9.6 08/14/2021 DTL x10(9)/L 8:59 AM COMPONENTS ENGINEER Specimen Anatomical Collection Method Collection Time Receive d Time (Source) Location / / Volume Laterality Blood (Blood, 08/14/2021 8:20 AM 08/14/19 8:41 Venous) COMPONENTS ENGINEER AM COMPONENTS ENGINEER Trung Plasencia P.A.-C., M.S. LAB BLOOD ADD-ON Performing Organization Address City/State/ZIP Code Phon e Number [facility] - [address] [place], [place] [address] [facility] [place] [address] Laboratories-[facility] [address] documented in this encounter Visit Diagnoses Diagnosis Transplant Liver (HCC) - Primary Medication Therapy Fdc Not Anticoa gulant Colitis Cytomegalovirus (HCC) Transplant Liver (HCC) Medication Therapy Suction Dredge Dumping Supervisor Not Anticoa gulant Colitis Cytomegalovirus (HCC) documented in this encounter Additional Health Concerns Assessment Noted Time PHQ-9 Depression Total Score: 4 11/28/2020 10:17 AM CD T documented as of this encounter Care Teams Pump Operator Byproducts Relationship Specialty Start Date End Date Elsewhere, Pcp PCP - General Family Medicine 07/29/17 [facility] - Laboratory Medicine 04/12/20 [place] [address] documented as of this encounter
--- OUTSIDE RECORDS SUMMARY | 2022-05-17 18:32 | XMS_ITS | Encounter Summary ---
:1955 Author Organization [facility] Address [address] [place] [address] Care Team Providers Name Role Phone Elsewhere, Pcp Primary Care Provider Unavailable Reason for Visit Reason Comments External Lab Entry 07/27/2021 Encounter Details Date Type Department Care Team Description 08/01/2021 Clinical Curt Garces Transplant, Senior Technical Manager al Lab Entry Communication Center for Coordinator, (07/27/2021) Transplantation and R.N. 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 [address] [place] [phone] 05/23/2022 Clinical Admitting/Central Communication Scheduling 05/27/2022 Comprehensive Visit Orthopedic Surgery Markus Sams M.D., Ph.D. [address] [place] [phone] 05/29/2022 Office Visit Otorhinolaryngology Dex Matta APRN, C.N.P., M.S.N. [address] [place] [phone] 05/29/2022 Office Visit Otorhinolaryngology Nadeem Maradiaga, P.A.-C., M.S. [address] [place] [phone] 05/31/2022 Appointment Radiology Guilherme Matt MPAS, P.Murtaza.-Arley., M.S. [address] [place] [phone] 06/05/2022 Appointment Laboratory Medicine Angélica Granger P.A.-C. [address] [place] [phone] 06/19/2022 Appointment Laboratory Medicine Angélica Granger P.A.-C. [address] [place] [phone] 07/03/2022 Appointment Laboratory Medicine Angélica Granger P.A.-C. [address] [place] [phone] 07/17/2022 Appointment Laboratory Medicine Angélica Granger P.A.-C. [address] [place] [phone] 07/31/2022 Appointment Laboratory Medicine Angélica Granger P.A.-C. [address] [place] [phone] 08/14/2022 Appointment Laboratory Medicine Angélica Granger P.A.-C. [address] [place] [phone] 08/28/2022 Appointment Laboratory Medicine Angélica Granger P.A.-C. [address] [place] [phone] documented as of this encounter Procedures Procedure Name Priority Date/Time Associated Diagnosis Comme nts EXTP Routine 07/27/2021 10:25 AM Results for this TRANSPLANT/LIVER - HEATING MECHANIC procedure are in BLOOD, EXTERNAL LAB the resu lts RESULTS section. documented in this encounter Results Transplant/Liver - Blood, External Lab Results (07/27/2021 10:25 AM HEATING MECHANIC) P athologist Signature EXT CMV DNA <200 Quant, P Specimen (Source) Anatomical Collection Method Collection Time Re ceived Time Location / / Volume Laterality Blood 07/27/2021 10:25 AM HEATING MECHANIC Narrative This result has an attachment that is no t available. Historical Provider LAB BLOOD NON ADD-ON documented in this encounter Visit Diagnoses Not on filedocumented in this encounter Additional Health Concerns Assessment Noted Time PHQ-9 Depression Total Score: 4 11/28/2020 10:17 AM CD T documented as of this encounter Care Teams Abalone Sheller Relationship Specialty Start Date End Date Elsewhere, Pcp PCP - General Family Medicine 07/29/17 [facility] - Laboratory Medicine 04/12/[address] [address] documented as of this encounter
--- OUTSIDE RECORDS SUMMARY | 2022-05-17 18:32 | XMS_ITS | Encounter Summary ---
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 [address] [place] [address] [phone] 05/23/2022 Clinical Admitting/Central Communication Scheduling 05/27/2022 Comprehensive Visit Orthopedic Surgery Markus Sams M.D., Ph.D. [address] [place] [phone] 05/29/2022 Office Visit Otorhinolaryngology Dex Matta APRN, C.N.P., M.S.N. [address] [place] [phone] 05/29/2022 Office Visit Otorhinolaryngology Nadeem Maradiaga, P.Murtaza.-Arley., M.S. [address] [place] [phone] 05/31/2022 Appointment Radiology Guilherme Matt MPAS, PEdgar.Marie., M.S. [address] [place] [address] [phone] 06/05/2022 Appointment Laboratory Medicine Angélica Granger P.A.-C. [address] [place] [address] [phone] 06/19/2022 Appointment Laboratory Medicine Angélica Granger P.A.-C. [address] [place] [phone] 07/03/2022 Appointment Laboratory Medicine Angélica Granger P.A.-C. [address] [place] [phone] 07/17/2022 Appointment Laboratory Medicine Angélica Granger P.A.-C. [address] [place] [phone] 07/31/2022 Appointment Laboratory Medicine Angélica Granger P.A.-C. [address] [place] [phone] 08/14/2022 Appointment Laboratory Medicine Angélica Granger P.A.-C. [address] [place] [phone] 08/28/2022 Appointment Laboratory Medicine Angélica Granger P.A.-C. [address] [place] [phone] documented as of this encounter Visit Diagnoses Not on filedocumented in this encounter Additional Health Concerns Assessment Noted Time PHQ-9 Depression Total Score: 4 11/28/2020 10:17 AM CD T documented as of this encounter Care Teams Food Crops Farm Hand Relationship Specialty Start Date End Date Elsewhere, Pcp PCP - General Family Medicine 07/29/17 [facility] - Laboratory Medicine 04/12/[address] [address] documented as of this encounter
--- OUTSIDE RECORDS SUMMARY | 2022-05-17 18:32 | XMS_ITS | Encounter Summary ---
:1955 Author Organization [facility] Address [address] [place] [address] Care Team Providers Name Role Phone Elsewhere, Pcp Primary Care Provider Unavailable Reason for Visit Reason Comments Med Refill Encounter Details Date Type Department Care Team Description 08/08/2021 Refill [facility] 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 [address] [place] [phone] 05/23/2022 Clinical Admitting/Central Communication Scheduling 05/27/2022 Comprehensive Visit Orthopedic Surgery Markus Sams M.D., Ph.D. [address] [place] [phone] 05/29/2022 Office Visit Otorhinolaryngology Dex Matta, RAMONA, C.N.P., M.S.N. [address] [place] [phone] 05/29/2022 Office Visit Otorhinolaryngology Nadeem Maradiaga, PEdgar.Marie., M.S. [address] [place] [phone] 05/31/2022 Appointment Radiology Guilherme Matt, RASTA, Jennifer., M.S. [address] [place] [phone] 06/05/2022 Appointment Laboratory Medicine Angélica Granger P.A.-C. [address] [place] [phone] 06/19/2022 Appointment Laboratory Medicine Angélica Granger P.A.-C. [address] [place] [phone] 07/03/2022 Appointment Laboratory Medicine Angélica Granger P.A.-C. [address] [place] [phone] 07/17/2022 Appointment Laboratory Medicine Angélica Granger P.A.-C. [address] [place] [phone] 07/31/2022 Appointment Laboratory Medicine Angélica Granger P.A.-C. [address] [place] [phone] 08/14/2022 Appointment Laboratory Medicine Angélica Granger P.A.-C. [address] [place] [phone] 08/28/2022 Appointment Laboratory Medicine Angélica Granger P.A.-C. [address] [place] [phone] documented as of this encounter Visit Diagnoses Diagnosis Transplant Liver (HCC) - Primary Medication Therapy Senior Care Not Anticoa gulant Colitis Cytomegalovirus (HCC) documented in this encounter Additional Health Concerns Assessment Noted Time PHQ-9 Depression Total Score: 4 11/28/2020 10:17 AM CD T documented as of this encounter Care Teams Education Supervisor Relationship Specialty Start Date End Date Elsewhere, Pcp PCP - General Family Medicine 07/29/17 [facility] - Laboratory Medicine 04/12/20 [place] [address] documented as of this encounter
[2022-05-17 18:33] LABS: Alanine Aminotransferase* 17 U/L (4-50); Alkaline Phosphatase* 118 U/L (40-150); Aspartate Amino Transferase* 20 U/L (12-35); Bilirubin Direct* 0.4 mg/dL (0.0-0.5); Bilirubin Total* 0.6 mg/dL (0.1-1.5); Blood Urea Nitrogen* 56 mg/dL (7-30); Calcium* 8.2 mg/dL (8.4-10.6); Carbon Dioxide* 24 mmol/L (20-32); Glucose* 163 mg/dL (60-115); Total Protein* 6.6 g/dL (6.0-8.3)
--- OUTSIDE RECORDS SUMMARY | 2022-05-17 18:33 | XMS_ITS | Encounter Summary ---
:1955 Author Organization [facility] Address [address] [place] [address] Care Team Providers Name Role Phone Elsewhere, Pcp Primary Care Provider Unavailable Encounter Details Date Type Department Care Team Description 07/30/2021 Orders Only Division of Nephrology and Chris Norwood Hypertension in [place], ., D.O. 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 [address] [place] [phone] 05/23/2022 Clinical Admitting/Central Communication Scheduling 05/27/2022 Comprehensive Visit Orthopedic Surgery Markus Sams M.D., Ph.D. [address] [place] [phone] 05/29/2022 Office Visit Otorhinolaryngology Dex Matta, RAMONA, C.N.P., M.S.N. [address] [place] [phone] 05/29/2022 Office Visit Otorhinolaryngology Nadeem Maradiaga, P.Murtaza.-Arley., M.S. [address] [place] [address] [phone] 05/31/2022 Appointment Radiology Guilherme Matt MPAS, Jennifer., M.S. [address] [place] [phone] 06/05/2022 Appointment Laboratory Medicine Angélica Granger P.A.-C. [address] [place] [phone] 06/19/2022 Appointment Laboratory Medicine Angélica Granger P.A.-C. [address] [place] [phone] 07/03/2022 Appointment Laboratory Medicine Angélica Granger P.A.-C. [address] [place] [phone] 07/17/2022 Appointment Laboratory Medicine Angélica Granger P.A.-C. [address] [place] [phone] 07/31/2022 Appointment Laboratory Medicine Angélica Granger P.A.-C. [address] [place] [phone] 08/14/2022 Appointment Laboratory Medicine Angélica Granger P.A.-C. [address] [place] [phone] 08/28/2022 Appointment Laboratory Medicine Angélica Granger P.A.-C. [address] [place] [phone] documented as of this encounter Visit Diagnoses Not on filedocumented in this encounter Additional Health Concerns Assessment Noted Time PHQ-9 Depression Total Score: 4 11/28/2020 10:17 AM CD T documented as of this encounter Care Teams Account Services Analyst Relationship Specialty Start Date End Date Elsewhere, Pcp PCP - General Family Medicine 07/29/17 [facility] - Laboratory Medicine 04/12/[address] [address] documented as of this encounter
--- OUTSIDE RECORDS SUMMARY | 2022-05-17 18:33 | XMS_ITS | Encounter Summary ---
:1955 Author Organization [facility] Address [address] [place] [address] Care Team Providers Name Role Phone Elsewhere, Pcp Primary Care Provider Unavailable Encounter Details Date Type Department Care Team Description 07/26/2021 Orders Only RST EVANGELINA PIZARRO OR Avril Bright M.D. 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 [address] [place] [phone] 05/23/2022 Clinical Admitting/Central Communication Scheduling 05/27/2022 Comprehensive Visit Orthopedic Surgery Markus Sams M.D., Ph.D. [address] [place] [phone] 05/29/2022 Office Visit Otorhinolaryngology Dex Matta APRN, C.N.P., M.S.N. [address] [place] [phone] 05/29/2022 Office Visit Otorhinolaryngology Nadeem Maradiaga, P.Murtaza.-Arley., M.S. [address] [place] [address] [phone] 05/31/2022 Appointment Radiology Guilherme Matt MPAS, P.Murtaza.Marie., M.S. [address] [place] [phone] 06/05/2022 Appointment Laboratory Medicine Angélica Granger P.A.-C. [address] [place] [phone] 06/19/2022 Appointment Laboratory Medicine Angélica Granger P.A.-C. [address] [place] [phone] 07/03/2022 Appointment Laboratory Medicine Angélica Granger P.A.-C. [address] [place] [phone] 07/17/2022 Appointment Laboratory Medicine Angélica Granger P.A.-C. [address] [place] [phone] 07/31/2022 Appointment Laboratory Medicine Angélica Granger P.A.-C. [address] [place] [phone] 08/14/2022 Appointment Laboratory Medicine Angélica Granger P.A.-C. [address] [place] [phone] 08/28/2022 Appointment Laboratory Medicine Angélica Granger P.A.-C. [address] [place] [phone] documented as of this encounter Visit Diagnoses Not on filedocumented in this encounter Additional Health Concerns Infection Onset Date Last Indicated Resolved Time COVID19 Pending 10/12/2021 10/12/2021 10/12/2021 2:28 PM CDT COVID19 Pending 10/12/2021 10/12/2021 10/13/2021 12:34 AM CDT COVID19 Pending 12/05/2021 12/05/2021 12/05/2021 6:33 PM CDT COVID19 Pending 12/07/2021 12/07/2021 12/07/2021 1:40 PM CDT COVID19 Pending 02/04/2022 02/04/2022 02/05/2022 2:30 PM CDT Assessment Noted Time PHQ-9 Depression Total Score: 4 11/28/2020 10:17 AM CD T documented as of this encounter Care Teams Parts Processor Relationship Specialty Start Date End Date Elsewhere, Pcp PCP - General Family Medicine 07/29/17 [facility] - Laboratory Medicine 04/12/[address] [address] documented as of this encounter
--- OUTSIDE RECORDS SUMMARY | 2022-05-17 18:33 | XMS_ITS | Encounter Summary ---
:1955 Author Organization [facility] Address [address] [place] [address] Care Team Providers Name Role Phone Elsewhere, Pcp Primary Care Provider Unavailable Encounter Details Date Type Department Care Team Description 07/30/2021 Documentation Division of Nephrology and Suhail Norwood Hypertension in [place], ., D.O. 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 Complex set of circumstances certainly. RHOUSE MECHANIC documented in 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 [address] [place] [phone] 05/23/2022 Clinical Admitting/Central Communication Scheduling 05/27/2022 Comprehensive Visit Orthopedic Surgery Markus Sams M.D., Ph.D. [address] [place] [phone] 05/29/2022 Office Visit Otorhinolaryngology Dex Matta APRN, C.N.P., M.S.N. [address] [place] [phone] 05/29/2022 Office Visit Otorhinolaryngology Nadeem Maradiaga, Edmundo, M.S. [address] [place] [phone] 05/31/2022 Appointment Radiology Guilherme Matt, RASTA, Edmundo, M.S. [address] [place] [phone] 06/05/2022 Appointment Laboratory Medicine Angélica Granger P.A.-C. [address] [place] [phone] 06/19/2022 Appointment Laboratory Medicine Angélica Granger P.A.-C. [address] [place] [phone] 07/03/2022 Appointment Laboratory Medicine Angélica Granger P.A.-C. [address] [place] [phone] 07/17/2022 Appointment Laboratory Medicine Angélica Granger P.A.-C. [address] [place] [phone] 07/31/2022 Appointment Laboratory Medicine Angélica Granger P.A.-C. [address] [place] [phone] 08/14/2022 Appointment Laboratory Medicine Angélica Granger P.A.-C. [address] [place] [phone] 08/28/2022 Appointment Laboratory Medicine Angélica Granger P.A.-C. [address] [place] [phone] documented as of this encounter Visit Diagnoses Not on filedocumented in this encounter Additional Health Concerns Assessment Noted Time PHQ-9 Depression Total Score: 4 11/28/2020 10:17 AM CD T documented as of this encounter Care Teams Runner On Relationship Specialty Start Date End Date Elsewhere, Pcp PCP - General Family Medicine 07/29/17 [facility] - Laboratory Medicine 04/12/[address] [address] documented as of this encounter
--- OUTSIDE RECORDS SUMMARY | 2022-05-17 18:33 | XMS_ITS | Encounter Summary ---
:1955 Author Organization [facility] Address [address] [place] [address] Care Team Providers Name Role Phone Elsewhere, Pcp Primary Care Provider Unavailable Reason for Referral Outpatient (Routine) - Closed Specialty Diagnoses / Procedures Referred By Contact Refer red To Contact Diagnoses Hypertension And Chronic Kidney Disease Stage 5 (HCC) Chronic Cough Otoniel Norwood Jr., [facility] Procedures DX Chest AP or PA and Lateral 2 Views D.O. [address] [place] [address] Referral ID Status Reason Start Date Expiration Date Visits Requ ested Visits Authorized [id number] Closed 07/30/2021 07/30/2022 1 1 K PREPARER Reason for Visit Outpatient (Routine) - Closed Specialty Diagnoses / Procedures Referred By Contact Refer red To Contact Diagnoses Hypertension And Chronic Kidney Disease Stage 5 (HCC) Chronic Cough Otoniel Norwood Jr., [facility] Procedures DX Chest AP or PA and Lateral 2 Views D.O. [address] [place], [place] [address] Referral ID Status Reason Start Date Expiration Date Visits Requ ested Visits Authorized [id number] Closed 07/30/2021 07/30/2022 1 1 Encounter Details Date Type Department Care Team Description 07/31/2021 Hospital Encounter Department of [place], Maninder higgins And Chronic Kidney Disease Stage 5 (HCC); Radiology, [place] Otoniel C Jr., Chronic Cou gh Building, in D.O. 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 vancomycin (VANCOCIN) TAKE 1 CAPSULE BY 34 capsule 0 021 05/26/2022 125 mg capsule MOUTH FOUR TIMES A DAY FOR 34 DOSES acetaminophen (TYLENOL) Take 1 tablet (500 0 [...] MOUTH DAILY Transplant Liver (HCC), Medication Therapy Food Services Manager Not Anticoagulant sulfamethoxazole-trimet Take 1 tablet by 10 tablet 0 202108/09/2021 hoprim (BACTRIM DS) mouth daily for 10 800-160 mg per tablet days. tacrolimus (PROGRAF) TAKE 2 CAPSULES BY 360 capsule 3 202110/16/2021 0.5 mg MOUTH TWICE DAILY capsuleIndications: Transplant Liver (HCC), Medication Therapy Prison Not Anticoagulant torsemide (DEMADEX) 10 Take 30 mg by mouth 0 08/17/2021 mg tablet daily. UNABLE TO FIND by nasal 0 10/12/2021 (alternating) route 2 (two) times a day. Azelastine 1mg to Sinus Rinse twice daily. [facility] documented as of 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 [address] [place] [phone] 05/23/2022 Clinical Admitting/Central Communication Scheduling 05/27/2022 Comprehensive Visit Orthopedic Surgery Markus Sams M.D., Ph.D. [address] [place] [address] [phone] 05/29/2022 Office Visit Otorhinolaryngology Dex Matta, RAMONA, C.N.P., M.S.N. [address] [place] [address] [phone] 05/29/2022 Office Visit Otorhinolaryngology Nadeem Maradiaga, P.A.-C., M.S. [address] [place] [address] [phone] 05/31/2022 Appointment Radiology Guilherme Matt MPAS, P.A.-C., M.S. [address] [place] [phone] 06/05/2022 Appointment Laboratory Medicine Angélica Granger P.A.-C. [address] [place] [phone] 06/19/2022 Appointment Laboratory Medicine Angélica Granger P.A.-C. [address] [place] [phone] 07/03/2022 Appointment Laboratory Medicine Angélica Granger P.A.-C. [address] [place] [phone] 07/17/2022 Appointment Laboratory Medicine Angélica Granger P.A.-C. [address] [place] [phone] 07/31/2022 Appointment Laboratory Medicine Angélica Granger P.A.-C. [address] [place] [phone] 08/14/2022 Appointment Laboratory Medicine Angélica Granger P.A.-C. [address] [place] [phone] 08/28/2022 Appointment Laboratory Medicine Angélica Granger P.A.-C. [address] [place] [phone] documented as of this encounter Procedures Procedure Name Priority Date/Time Associated Comments Diagnosis DX CHEST AP OR PA RAD - Routine 07/31/2021 9:29 Hypertension And Re sults for this AND LATERAL 2 (most inpatients AM STOCK PREPARER Chronic Kidney procedur e are in VIEWS and all Disease Stage 5 the results outpatients) (HCC) section. Chronic Cough documented in this encounter Results DX Chest AP or PA and Lateral 2 Views (07/31/2021 9:29 AM STOCK PREPARER) Anatomical Region Laterality Modality Chest, Thoracic RST LOS, Thoracic ARZ LOS, Thoracic N/A Digital Radiography FLA LOS Specimen (Source) Anatomical Collection Method Collection Time Re ceived Time Location / / Volume Laterality 07/31/2021 9:45 AM STOCK PREPARER Impressions 07/31/2021 10:16 AM STOCK PREPARER Comparison 05/23/2021. Stable patchy opacities in the lung bases consistent with bronchiectasis is seen o n the prior chest CT from 06/12/2021. No acute infiltrates. Nipple shadows. Libby l cardiac silhouette. Right IJ catheter tip in the low SVC. Left PICC line tip i n the SVC/RA junction. Degenerative changes of the spine. Narrative 07/31/2021 10:16 AM STOCK PREPARER EXAM: ??DX CHEST AP OR PA AND [...] documented as of this encounter Care Teams Ammonia Refrigeration Worker Relationship Specialty Start Date End Date Elsewhere, Pcp PCP - General Family Medicine 07/29/17 [facility] - Laboratory Medicine 04/12/[address] [address] documented as of this encounter
--- OUTSIDE RECORDS SUMMARY | 2022-05-17 18:33 | XMS_ITS | Encounter Summary ---
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 [address] [place] [phone] 05/23/2022 Clinical Admitting/Central Communication Scheduling 05/27/2022 Comprehensive Visit Orthopedic Surgery Markus Sams M.D., Ph.D. [address] [place] [phone] 05/29/2022 Office Visit Otorhinolaryngology Dex Matta APRN, C.N.P., M.S.N. [address] [place] [phone] 05/29/2022 Office Visit Otorhinolaryngology Nadeem Maradiaga, P.A.-Arley., M.S. [address] [place] [address] [phone] 05/31/2022 Appointment Radiology Guilherme Matt MPAS, PMaryanne., M.S. [address] [place] [address] [phone] 06/05/2022 Appointment Laboratory Medicine Angélica Granger P.A.-C. [address] [place] [phone] 06/19/2022 Appointment Laboratory Medicine Angélica Granger P.A.-C. [address] [place] [phone] 07/03/2022 Appointment Laboratory Medicine Angélica Granger P.A.-C. [address] [place] [phone] 07/17/2022 Appointment Laboratory Medicine Angélica Granger P.A.-C. [address] [place] [phone] 07/31/2022 Appointment Laboratory Medicine Angélica Granger P.A.-C. [address] [place] [phone] 08/14/2022 Appointment Laboratory Medicine Angélica Granger P.A.-C. [address] [place] [phone] 08/28/2022 Appointment Laboratory Medicine Angélica Granger P.A.-C. [address] [place] [phone] documented as of this encounter Visit Diagnoses Not on filedocumented in this encounter Additional Health Concerns Assessment Noted Time PHQ-9 Depression Total Score: 4 11/28/2020 10:17 AM CD T documented as of this encounter Care Teams Maintenance Operator Relationship Specialty Start Date End Date Elsewhere, Pcp PCP - General Family Medicine 07/29/17 [facility] - Laboratory Medicine 04/12/[address] [address] documented as of this encounter
--- OUTSIDE RECORDS SUMMARY | 2022-05-17 18:33 | XMS_ITS | Encounter Summary ---
:[address] [facility] Address [address] [place] [address] Care Team Providers Name Role Phone Elsewhere, Pcp Primary Care Provider Unavailable Reason for Visit Auth/Cert Specialty Diagnoses / Procedures Referred By Contact Refer red To Contact Diagnoses Rhinosinusitis Chronic Rhinosinusitis Chronic [J32.8] Procedures NC NSL/SINS NDSC SPHN TISS RMVL NC ENDO NSL MAX ANTROST W RMV TIS NC ENDO NSL W FRNTL SINUS EXPLOR NC SEPTO/SUBM RESEC W/WO CART GRFT NC SUBMUC RSECT TURB PRTL/COMPLT NC STRTCTC COMP-ASSIST CRNL EXTRA ENDOSCOPIC SPHENOIDOTOMY WIT H TISSUE REMOVAL ETHMOIDECTOMY ENDOSCOPY ENDOSCOPIC MAXILLARY ANTROSTOMY WITH TISSUE REMOVAL SINUSOTOMY ENDOSCOPY FRONTAL SEPTOPLASTY REDUCTION TURBINATE INFERIOR EXTRADURAL COMPUTER NAVIGATION, proceed as indicated Referral ID Status Reason Start Date Expiration Date Visits Requ ested Visits Authorized [id number] 1 1 Encounter Details Date Type Department Care Team Description 07/26/2021 Hospital Encounter RST [facility] OR Toro Pena Rhinosinusitis Chronic [address] [facility] Sada Galvan [place], [place] [address] [facility] [address] [place], [place] [phone] Social History Tobacco Use Types Packs/Day Years [...] at Date Recorded Male 05/16/2020 4:27 PM CLOTHES MODEL documented as of this encounter Last Filed Vital Signs Vital Sign Reading Time Taken Comments Blood Pressure 110/65 07/26/2021 3:57 PM CLOTHES MODEL Pulse 72 07/26/2021 3:57 PM CLOTHES MODEL Temperature 36.8 ??C (98.2 ??F) 07/26/2021 3:57 PM CLOTHES MODEL Respiratory Rate 15 07/26/2021 3:57 PM CLOTHES MODEL Oxygen Saturation 99% 07/26/2021 3:57 PM CLOTHES MODEL Inhaled Oxygen Concentration - - Weight 70.1 kg (154 lb 8.7 oz) 07/26/2021 6:50 AM CLOTHES MODEL Height 175.4 cm (5' 9.06) 07/26/2021 6:50 AM CLOTHES MODEL Body Mass Index 22.79 07/26/2021 6:50 AM CLOTHES MODEL documented in this encounter Discharge Instructions AttachmentsThe following attachments cannot be sent through Care Everywhere. Instructions After Sedation or Anesthesia for Adults (Nepalese)documented in this encounter Medications at Time of [...] FOUR TIMES A DAY FOR 34 DOSES lamoTRIgine (LaMICtal) TAKE 1 TABLET BY 200 [...] DAILY capsuleIndications: Transplant Liver (HCC), Medication Therapy Correction Not Anticoagulant torsemide (DEMADEX) 10 Take 30 mg by mouth 0 08/17/2021 mg tablet daily. sodium chloride 0.9 % Infuse 5 mL [...] MOUTH DAILY Transplant Liver (HCC), Medication Therapy Project Economist Not Anticoagulant UNABLE TO FIND by nasal 0 10/12/2021 (alternating) route 2 (two) times a day. Azelastine 1mg to Sinus Rinse twice daily. [facility] documented as of this encounter OR Notes Op Note - Toro Pena M.D. - 07/26/2021 8:20 AM CST Pre-op Diagnosis Rhinosinusitis Chronic Post-op Diagnosis Rhinosinusitis Chronic A list of first job ideas actively participated and was necessary for one [...] The patient was brought back to the [facility] 202 and placed [...] this in a retrograde fashion with a kerlineier backbiter andremoved it in its entirety. We [...] an incision was carried out with a Reeves elevator over the head of the left inferior turbinate. We then dissected back posteriorly with a Reeves elevator. We then performed a submucosal reduction [...] care of Anesthesia for wake up. A list of first job ideas actively participated and was necessary for one or more of the following: opening,exposure and visualization during the case, maintaining hemostasis, wound closure resulting in its safe and expeditious completion. HES MODEL documented in 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 [address] [place] [phone] 05/23/2022 Clinical Admitting/Central Communication Scheduling 05/27/2022 Comprehensive Visit Orthopedic Surgery Markus Sams M.D., Ph.D. [address] [place] [phone] 05/29/2022 Office Visit Otorhinolaryngology Dex Matta APRN, C.N.P., M.S.N. [address] [place] [phone] 05/29/2022 Office Visit Otorhinolaryngology Nadeem Maradiaga, Jennifer., M.S. [address] [place] [phone] 05/31/2022 Appointment Radiology Guilherme Matt MPAS, Jennifer., M.S. [address] [place] [phone] 06/05/2022 Appointment Laboratory Medicine Angélica Granger P.A.-C. [address] [place] [phone] 06/19/2022 Appointment Laboratory Medicine Angélica Granger P.A.-C. [address] [place] [phone] 07/03/2022 Appointment Laboratory Medicine Angélica Granger P.A.-C. [address] [place] [phone] 07/17/2022 Appointment Laboratory Medicine Angélica Granger P.A.-C. [address] [place] [phone] 07/31/2022 Appointment Laboratory Medicine Angélica Granger P.A.-C. [address] [place] [phone] 08/14/2022 Appointment Laboratory Medicine Angélica Granger P.A.-C. [address] [place] [phone] 08/28/2022 Appointment Laboratory Medicine Angélica Granger P.A.-C. [address] [place] [phone] documented as of this encounter Procedures Procedure Name Priority Date/Time Associated Diagnosis Comme nts SURGICAL PATHOLOGY, Routine 07/26/2021 10:34 Rhinosinusitis Ch ronic Results for this FROZEN LAB AM CLOTHES MODEL procedure are i n the results section. BACTERIAL CULTURE, Routine 07/26/2021 8:26 Rhinosinusitis User Interface Developer surinder Results for this AEROBIC + SUSC AM CLOTHES MODEL procedure are in the results section. GRAM STAIN Routine 07/26/2021 8:26 Rhinosinusitis Chronic Re sults for this AM CLOTHES MODEL procedure are i n the results section. BACTERIAL CULTURE, Routine 07/26/2021 8:26 Rhinosinusitis User Interface Developer surinder Results for this ANAEROBIC + SUSC AM CLOTHES MODEL procedure a re in the results section. EXTRADURAL COMPUTER 07/26/2021 7:23 Rhinosinusitis Chr onic NAVIGATION AM CLOTHES MODEL REDUCTION TURBINATE 07/26/2021 7:23 Rhinosinusitis Chr onic AM CLOTHES MODEL SEPTOPLASTY 07/26/2021 7:23 Rhinosinusitis Chronic AM CLOTHES MODEL SINUSOTOMY ENDOSCOPY 07/26/2021 7:23 Rhinosinusitis Ch ronic FRONTAL AM CLOTHES MODEL ENDOSCOPIC MAXILLARY 07/26/2021 7:23 Rhinosinusitis Ch ronic ANTROSTOMY WITH AM CLOTHES MODEL TISSUE REMOVAL ETHMOIDECTOMY 07/26/2021 7:23 Rhinosinusitis Chronic ENDOSCOPY AM CLOTHES MODEL ENDOSCOPIC 07/26/2021 7:23 Rhinosinusitis Chronic SPHENOIDOTOMY WITH AM CLOTHES MODEL TISSUE REMOVAL documented in this encounter Results Surgical Pathology, Frozen Lab (07/26/2021 10:34 AM CLOTHES MODEL) Component Value Ref Test Analysis Performed Pathologis t Range Method Time At Signature 07/31/2021 STMA 12:57 PM CLOTHES MODEL Report Markus Restrepo M.D. 07/31/2021 STMA electronically 12:57 PM signed by CLOTHES MODEL I verify that I have examined all relevant slides/materials for the specimen(s) and rendered or confirmed the diagnosis. Gross Description A. ??Received fresh in a CUSA trap labeled left sinonasal 07/31/2021 STMA contents is a 4.1 x 2.2 x 1.6 cm aggregate of pink soft 12:57 PM tissue, bone, and cartilage fragments. ??All soft tissue CLOTHES MODEL submitted for permanent sections. ??Grossed by Venkatesh Miller M.S., PA([facility]). B. ??Received fresh labeled right sinonasal contents is a 5.5 x 2.5 x 0.3 cm aggregate of grady-pink tissue admixed with cartilaginous and bony fragments. ??All submitted for permanent sections. ??Grossed by Dodie Ferguson M.S., PA([facility]). Block Summary A Left sinonasal contents 07/31/2021 STMA A1 Left sinonasal contents 1 12:57 PM A2 Left sinonasal contents 2 CLOTHES MODEL A3 Left sinonasal contents 3 A4 Left sinonasal contents 4 B Right sinonasal contents B1 Right sinonasal contents 1 B2 Right sinonasal contents 2 B3 Right sinonasal contents 3 B4 Right sinonasal contents 4 Interpretation FINAL DIAGNOSIS 07/31/2021 STMA 12:57 PM A. ??Sinonasal contents, left, excision: ??Benign sinonasal CLOTHES MODEL mucosa with acute and chronic inflammation, including mild eosinophils. ??Allergic mucin not identified. B. ??Sinonasal contents, right, excision: ??Benign sinonasal mucosa with acute and chronic inflammation, including mild eosinophils. ??Allergic mucin not identified. Specimen (Source) Anatomical Collection Method Collection Time Re ceived Time Location / / Volume Laterality Tissue (Nose) 07/26/2021 10:34 AM CLOTHES MODEL Tissue (Nose) 07/26/2021 11:23 AM CLOTHES MODEL Narrative This result has an attachment that is no t available. Toro Pena M.D. LAB SURG PATH ORDERABLES Performing Organization Address City/State/ZIP Code Phon e Number [facility] - [address] [place], [place] [address] [facility] [place] [address] Laboratories-[facility] [address] (ABNORMAL) Bacterial Culture, Aerobic + Susc (07/26/2021 8:26 AM CLOTHES MODEL) Component Value Ref Test Analysis Performed At [facility] gist Range Method Time Signature Bacterial Susceptibilities 08/01/2021 DTL Culture, requested by phone. 2:44 PM CLOTHES MODEL Aerobic + (A) Susc Bacterial SERRATIA MARCESCENS 08/01/2021 DTL Culture, 2+ 2:44 PM CLOTHES MODEL Aerobic + (A) Susc Comment: This organism may contain an inducible b eta-lactamase. Second- or third-generation cephalospori n monotherapy may result in the emergence of high-level resistance. Preferred empiric therapy, p ending antimicrobial susceptibility results, is cefepime, a f luoroquinolone, or a carbapenem, unless clinically contr aindicated. Bacterial Culture, Aerobic STREPTOCOCCUS INTERMEDIUS 08/01/2021 2:44 PM CLOTHES MODEL DTL + Susc 3+ (A) Comment: If susceptibilities desired, ca ll Ext. [phone] Bacterial Culture, STAPHYLOCOCCUS LUGDUNENSIS 02/2022 2:44 PM CLOTHES MODEL DTL Aerobic + Susc 1+ (A) Comment: mecA not detected by PCR This test was developed and its performa nce characteristics determined by [facility] in a manner co nsistent with CLIA requirements. This test has not bee n cleared or approved by the U.S. Food and Drug Admin istration. Bacterial Culture, NEISSERIA sp, NOT N. GONORRHOEAE OR N. MENINGITI DIS 08/01/2021 2:44 PM CLOTHES MODEL DTL Aerobic + Susc 2+ (A) Comment: If susceptibilities desired, ca ll Ext. [phone] Specimen (Source) Anatomical Collection Method Collection Time Re ceived Time Location / / Volume Laterality Sinus Contents 07/26/2021 8:26 AM (Nose) CLOTHES MODEL Organism Antibiotic Method Susceptibility Serratia marcescens Ampicillin [...] - GENERAL O GLADYS Performing Organization Address City/[facility] Code Phon e Number [facility] - [address] [place] [address] (ABNORMAL) Gram Stain (07/26/2021 8:26 AM CLOTHES MODEL) Analysis Performed At [facility] logist Time Signature Gram Stain White blood 07/26/2021 DTL cells, Many. 1:18 PM CLOTHES MODEL (A) Gram Stain GRAM POSITIVE COCCI 07/26/2021 DTL Moderate. 1:18 PM CLOTHES MODEL (A) Specimen (Source) Anatomical Collection Method Collection Time Re ceived Time Location / / Volume Laterality Sinus Contents 07/26/2021 8:26 AM (Nose) CLOTHES MODEL Toro Pena M.D. LAB MICROBIOLOGY - GENERAL O GLADYS Performing Organization Address City/[facility] Phon e Number [facility] [address] (ABNORMAL) Bacterial Culture, Anaerobic + Susc (07/26/2021 8:26 AM CLOTHES MODEL) Patholo gist Method Time Signature Bacterial Culture yields >4 types of aerobic and/or anaerobic 07/28/2021 DT Culture, bacteria. Anaerobic bacteria not further identified. 9:42 AM CLOTHES MODEL Anaerobic + (A) [facility] Specimen (Source) Anatomical Collection Method Collection Time Re ceived Time Location / / Volume Laterality Sinus Contents 07/26/2021 8:26 AM (Nose) CLOTHES MODEL Toro Pena M.D. LAB MICROBIOLOGY - GENERAL O RDTK Performing Organization Address City/State/ZIP Code Phon e Number [facility] - [address] [place], [place] [address] [facility] [place] [address] Laboratories-[facility] [address] documented in [...] tablet 1,000 mg Given 07/26/2021 12:20 PM CLOTHES MODEL 1,00 0 mg (TYLENOL) 1,000 mg, oral, Every 6 hours, First dose on Shraddha 07/26/21 at 1200, Orally or per feeding tube. acetaminophen tablet 650 mg (TYLENOL) Given 07/26/2021 7:24 AM CLOTHES MODEL 650 mg 650 mg, oral, Once, On Shraddha 07/26/21 at 1400, For 1 dose, Pre-Op EPINEPHrine injection 30 mg (ADRENALIN) 30 mg, topical, Once in surgery, other, OR use only - soak pledget prior to nasal administration, Starting on Fri07/26/21 at 0645, For 1 dose, Intra-Op ipratropium-albuteroL 0.5-2.5 mg/3 mL nebulizer Given 07/26/2021 7:17 AM CLOTHES MODEL 3 mL solution 3 mL (DUONEB) 3 mL, nebulization, Once, On Fri07/26/21 at 0630, For 1 dose, Pre-Op ketamine injection 10 mg (KETALAR) Given 07/26/2021 12:01 PM CLOTHES MODEL 10 mg 10 mg, intravenous, Once as [...] 10 mg (ROXICODONE) Given 07/26/2021 11:57 AM CLOTHES MODEL 10 mg 10 mg, oral, Every 4 [...] Recently Administered Medications Times are shown in CLOTHES MODEL. Scheduled Medication Order 07/24/2021 07/25/2021 07/26/2021 acetaminophen [...] as of this encounter Care Teams Administrative Services Specialist Relationship Specialty Start Date End Date Elsewhere, Pcp PCP - General Family Medicine 07/29/17 [facility] - Laboratory Medicine 04/12/[address] [address] documented as of this encounter
--- OUTSIDE RECORDS SUMMARY | 2022-05-17 18:33 | XMS_ITS | Encounter Summary ---
:1955 Author Organization [facility] Address [address] [place] [address] Care Team Providers Name Role Phone Elsewhere, Pcp Primary Care Provider Unavailable Encounter Details Date Type Department Care Team Description 07/25/2021 Orders Only Division of Nephrology and Elissa Wilcox A PRN, Hypertension, Buddhist C.N.P. 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 [address] [place] [phone] 05/23/2022 Clinical Admitting/Central Communication Scheduling 05/27/2022 Comprehensive Visit Orthopedic Surgery Markus Sams M.D., Ph.D. [address] [place] [phone] 05/29/2022 Office Visit Otorhinolaryngology Dex Matta APRN, C.N.P., M.S.N. [address] [place] [phone] 05/29/2022 Office Visit Otorhinolaryngology Nadeem Maradiaga, P.Murtaza.-Arley., M.S. [address] [place] [address] [phone] 05/31/2022 Appointment Radiology Guilherme Matt MPAS, Jennifer., M.S. [address] [place] [phone] 06/05/2022 Appointment Laboratory Medicine Angélica Granger P.A.-C. [address] [place] [phone] 06/19/2022 Appointment Laboratory Medicine Angélica Granger P.A.-C. [address] [place] [phone] 07/03/2022 Appointment Laboratory Medicine Angélica Granger P.A.-C. [address] [place] [phone] 07/17/2022 Appointment Laboratory Medicine Angélica Granger P.A.-C. [address] [place] [phone] 07/31/2022 Appointment Laboratory Medicine Angélica Granger P.A.-C. [address] [place] [phone] 08/14/2022 Appointment Laboratory Medicine Angélica Granger P.A.-C. [address] [place] [phone] 08/28/2022 Appointment Laboratory Medicine Angélica Granger P.A.-C. [address] [place] [phone] documented as of this encounter Visit Diagnoses Not on filedocumented in this encounter Additional Health Concerns Assessment Noted Time PHQ-9 Depression Total Score: 4 11/28/2020 10:17 AM CD T documented as of this encounter Care Teams Ring Striker Relationship Specialty Start Date End Date Elsewhere, Pcp PCP - General Family Medicine 07/29/17 [place] - Laboratory Medicine 04/12/[address] [address] documented as of this encounter
--- OUTSIDE RECORDS SUMMARY | 2022-05-17 18:33 | XMS_ITS | Encounter Summary ---
:1955 Author Organization [facility] Address [address] [place] [address] Care Team Providers Name Role Phone Elsewhere, Pcp Primary Care Provider Unavailable Reason for Visit Auth/Cert Specialty Diagnoses / Procedures Referred By Contact Refer red To Contact Diagnoses Rhinosinusitis Chronic Rhinosinusitis Chronic [J32.8] Procedures WI NSL/SINS NDSC SPHN TISS RMVL WI ENDO NSL MAX ANTROST W RMV TIS WI ENDO NSL W FRNTL SINUS EXPLOR WI SEPTO/SUBM RESEC W/WO CART GRFT WI SUBMUC RSECT TURB PRTL/COMPLT WI STRTCTC COMP-ASSIST CRNL EXTRA ENDOSCOPIC SPHENOIDOTOMY WIT H TISSUE REMOVAL ETHMOIDECTOMY ENDOSCOPY ENDOSCOPIC MAXILLARY ANTROSTOMY WITH TISSUE REMOVAL SINUSOTOMY ENDOSCOPY FRONTAL SEPTOPLASTY REDUCTION TURBINATE INFERIOR EXTRADURAL COMPUTER NAVIGATION, proceed as indicated Referral ID Status Reason Start Date Expiration Date Visits Requ ested Visits Authorized [id number] 1 1 Encounter Details Date Type Department Care Team Description 07/26/2021 Surgery RST ROMB MAIN OR Toro Pena W, ENDOSCOPIC SPHENOIDOTOMY [address] [facility] M.DDemetrius WITH TISSUE REMOVAL. 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 documented as of this encounter Last Filed Vital Signs Vital Sign Reading Time Taken Comments Blood Pressure 114/56 07/26/2021 12:45 PM PLASTIC SHEETS SUPERVISOR Pulse 62 07/26/2021 12:55 PM PLASTIC SHEETS SUPERVISOR Temperature 36.9 ??C (98.4 ??F) 07/26/2021 11:45 AM PLASTIC SHEETS SUPERVISOR Respiratory Rate 15 07/26/2021 12:55 PM PLASTIC SHEETS SUPERVISOR Oxygen Saturation 99% 07/26/2021 12:55 PM PLASTIC SHEETS SUPERVISOR Inhaled Oxygen Concentration - - Weight 70.1 kg (154 lb 8.7 oz) 07/26/2021 6:50 AM PLASTIC SHEETS SUPERVISOR Height 175.4 cm (5' 9.06) 07/26/2021 6:50 AM PLASTIC SHEETS SUPERVISOR Body Mass Index 22.79 07/26/2021 6:50 AM PLASTIC SHEETS SUPERVISOR documented in this encounter Discharge Instructions AttachmentsThe following attachments cannot be sent through Care Everywhere. Instructions After Sedation or Anesthesia for Adults (Chadian)documented in this encounter Medications at Time of [...] DAILY capsuleIndications: Transplant Liver (HCC), Medication Therapy Editor Publications Not Anticoagulant torsemide (DEMADEX) 10 Take 30 [...] MOUTH DAILY Transplant Liver (HCC), Medication Therapy Long-Term Not Anticoagulant UNABLE TO FIND by nasal 0 10/12/2021 (alternating) route 2 (two) times a day. Azelastine 1mg to Sinus Rinse twice daily. [facility] documented as of this encounter OR Notes Op Note - Toro Pena M.D. - 07/26/2021 8:20 AM CST Pre-op Diagnosis Rhinosinusitis Chronic Post-op Diagnosis Rhinosinusitis Chronic A psychology assistant actively participated and was necessary for [...] The patient was brought back to the [id number] and placed supine on [...] care of Anesthesia for wake up. A psychology assistant actively participated and was necessary for one or more of the following: opening,exposure and visualization during the case, maintaining hemostasis, wound closure resulting in its safe and expeditious completion. TIC SHEETS SUPERVISOR documented in 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 [address] [place] [phone] 05/23/2022 Clinical Admitting/Central Communication Scheduling 05/27/2022 Comprehensive Visit Orthopedic Surgery Markus Sams M.D., Ph.D. [address] [place] [phone] 05/29/2022 Office Visit Otorhinolaryngology Dex Mtata APRN, C.N.P., M.S.N. [address] [place] [phone] 05/29/2022 Office Visit Otorhinolaryngology Nadeem Maradiaga, Jennifer., M.S. [address] [place] [phone] 05/31/2022 Appointment Radiology Guilherme Matt MPAS, Jennifer., M.S. [address] [place] [phone] 06/05/2022 Appointment Laboratory Medicine Angélica Granger P.A.-C. [address] [place] [phone] 06/19/2022 Appointment Laboratory Medicine Angélica Granger P.A.-C. [address] [place] [phone] 07/03/2022 Appointment Laboratory Medicine Angélica Granger P.A.-C. [address] [place] [phone] 07/17/2022 Appointment Laboratory Medicine Angélica Granger P.A.-C. [address] [place] [phone] 07/31/2022 Appointment Laboratory Medicine Angélica Granger P.A.-C. [address] [place] [phone] 08/14/2022 Appointment Laboratory Medicine Angélica Granger P.A.-C. [address] [place] [phone] 08/28/2022 Appointment Laboratory Medicine Angélica Granger P.A.-C. [address] [place] [phone] documented as of this encounter Procedures Procedure Name Priority Date/Time Associated Diagnosis Comme nts SURGICAL PATHOLOGY, Routine 07/26/2021 10:34 Rhinosinusitis Ch ronic Results for this FROZEN LAB AM PLASTIC SHEETS SUPERVISOR procedure are i n the results section. BACTERIAL CULTURE, Routine 07/26/2021 8:26 Rhinosinusitis Income Tax Administrator surinder Results for this AEROBIC + SUSC AM PLASTIC SHEETS SUPERVISOR procedure are in the results section. GRAM STAIN Routine 07/26/2021 8:26 Rhinosinusitis Chronic Re sults for this AM PLASTIC SHEETS SUPERVISOR procedure are i n the results section. BACTERIAL CULTURE, Routine 07/26/2021 8:26 Rhinosinusitis Income Tax Administrator surinder Results for this ANAEROBIC + SUSC AM PLASTIC SHEETS SUPERVISOR procedure a re in the results section. EXTRADURAL COMPUTER 07/26/2021 7:23 Rhinosinusitis Chr onic NAVIGATION AM PLASTIC SHEETS SUPERVISOR REDUCTION TURBINATE 07/26/2021 7:23 Rhinosinusitis Chr onic AM PLASTIC SHEETS SUPERVISOR SEPTOPLASTY 07/26/2021 7:23 Rhinosinusitis Chronic AM PLASTIC SHEETS SUPERVISOR SINUSOTOMY ENDOSCOPY 07/26/2021 7:23 Rhinosinusitis Ch ronic FRONTAL AM PLASTIC SHEETS SUPERVISOR ENDOSCOPIC MAXILLARY 07/26/2021 7:23 Rhinosinusitis Ch ronic ANTROSTOMY WITH AM PLASTIC SHEETS SUPERVISOR TISSUE REMOVAL ETHMOIDECTOMY 07/26/2021 7:23 Rhinosinusitis Chronic ENDOSCOPY AM PLASTIC SHEETS SUPERVISOR ENDOSCOPIC 07/26/2021 7:23 Rhinosinusitis Chronic SPHENOIDOTOMY WITH AM PLASTIC SHEETS SUPERVISOR TISSUE REMOVAL documented in this encounter Results Surgical Pathology, Frozen Lab (07/26/2021 10:34 AM PLASTIC SHEETS SUPERVISOR) Component Value Ref Test Analysis Performed Pathologis t Range Method Time At Signature 07/31/2021 STMA 12:57 PM PLASTIC SHEETS SUPERVISOR Report Markus Restrepo M.D. 07/31/2021 STMA electronically 12:57 PM signed by PLASTIC SHEETS SUPERVISOR I verify that I have examined all relevant slides/materials for the specimen(s) and rendered or confirmed the diagnosis. Gross Description A. ??Received fresh in a CUSA trap labeled left sinonasal 07/31/2021 STMA contents is a 4.1 x 2.2 x 1.6 cm aggregate of pink soft 12:57 PM tissue, bone, and cartilage fragments. ??All soft tissue PLASTIC SHEETS SUPERVISOR submitted for permanent sections. ??Grossed by Bonny Fernandez.S., PA([facility]). B. ??Received fresh labeled right sinonasal contents is a 5.5 x 2.5 x 0.3 cm aggregate of grady-pink tissue admixed with cartilaginous and bony fragments. ??All submitted for permanent sections. ??Grossed by Bonny Camargo.Irena., PA([facility]). Block Summary A Left sinonasal contents 07/31/2021 STMA A1 Left sinonasal contents 1 12:57 PM A2 Left sinonasal contents 2 PLASTIC SHEETS SUPERVISOR A3 Left sinonasal contents 3 A4 Left sinonasal contents 4 B Right sinonasal contents B1 Right sinonasal contents 1 B2 Right sinonasal contents 2 B3 Right sinonasal contents 3 B4 Right sinonasal contents 4 Interpretation FINAL DIAGNOSIS 07/31/2021 STMA 12:57 PM A. ??Sinonasal contents, left, excision: ??Benign sinonasal PLASTIC SHEETS SUPERVISOR mucosa with acute and chronic inflammation, including mild eosinophils. ??Allergic mucin not identified. B. ??Sinonasal contents, right, excision: ??Benign sinonasal mucosa with acute and chronic inflammation, including mild eosinophils. ??Allergic mucin not identified. Specimen (Source) Anatomical Collection Method Collection Time Re ceived Time Location / / Volume Laterality Tissue (Nose) 07/26/2021 10:34 AM PLASTIC SHEETS SUPERVISOR Tissue (Nose) 07/26/2021 11:23 AM PLASTIC SHEETS SUPERVISOR Narrative This result has an attachment that is no t available. Toro Pena M.D. LAB SURG PATH ORDERABLES Performing Organization Address City/State/ZIP Code Phon e Number [facility] - [address] [place], [place] [address] [facility] [place] [address] Laboratories-[facility] [address] (ABNORMAL) Bacterial Culture, Aerobic + Susc (07/26/2021 8:26 AM PLASTIC SHEETS SUPERVISOR) Component Value Ref Test Analysis Performed At [facility] gist Range Method Time Signature Bacterial Susceptibilities 08/01/2021 DTL Culture, requested by phone. 2:44 PM PLASTIC SHEETS SUPERVISOR Aerobic + (A) Susc Bacterial SERRATIA MARCESCENS 08/01/2021 DTL Culture, 2+ 2:44 PM PLASTIC SHEETS SUPERVISOR Aerobic + (A) Susc Comment: This organism may contain an inducible b eta-lactamase. Second- or third-generation cephalospori n monotherapy may result in the emergence of high-level resistance. Preferred empiric therapy, p ending antimicrobial susceptibility results, is cefepime, a f luoroquinolone, or a carbapenem, unless clinically contr aindicated. Bacterial Culture, Aerobic STREPTOCOCCUS INTERMEDIUS 08/01/2021 2:44 PM PLASTIC SHEETS SUPERVISOR DTL + Susc 3+ (A) Comment: If susceptibilities desired, ca ll Ext. [phone] Bacterial Culture, STAPHYLOCOCCUS LUGDUNENSIS 02/2022 2:44 PM PLASTIC SHEETS SUPERVISOR DTL Aerobic + Susc 1+ (A) Comment: mecA not detected by PCR This test was developed and its performa nce characteristics determined by [facility] in a manner co nsistent with CLIA requirements. This test has not bee n cleared or approved by the U.S. Food and Drug Admin istration. Bacterial Culture, NEISSERIA sp, NOT N. GONORRHOEAE OR N. MENINGITI DIS 08/01/2021 2:44 PM PLASTIC SHEETS SUPERVISOR DTL Aerobic + Susc 2+ (A) Comment: If susceptibilities desired, ca ll Ext. [id number] Specimen (Source) Anatomical Collection Method Collection Time Re ceived Time Location / / Volume Laterality Sinus Contents 07/26/2021 8:26 AM (Nose) PLASTIC SHEETS SUPERVISOR Organism Antibiotic Method Susceptibility Serratia marcescens Ampicillin [...] - GENERAL O GLADYS Performing Organization Address City/[facility] Code Phon e Number [address] (ABNORMAL) Gram Stain (07/26/2021 8:26 AM PLASTIC SHEETS SUPERVISOR) Analysis Performed At [facility] logist Time Signature Gram Stain White blood 07/26/2021 DTL cells, Many. 1:18 PM PLASTIC SHEETS SUPERVISOR (A) Gram Stain GRAM POSITIVE COCCI 07/26/2021 DTL Moderate. 1:18 PM PLASTIC SHEETS SUPERVISOR (A) Specimen (Source) Anatomical Collection Method Collection Time Re ceived Time Location / / Volume Laterality Sinus Contents 07/26/2021 8:26 AM (Nose) PLASTIC SHEETS SUPERVISOR Toro Pena M.D. LAB MICROBIOLOGY - GENERAL O GLADYS Performing Organization Address City/[facility] Phon e Number [facility] - [address] (ABNORMAL) Bacterial Culture, Anaerobic + Susc (07/26/2021 8:26 AM PLASTIC SHEETS SUPERVISOR) [facility] gist Method Time Signature Bacterial Culture yields >4 types of aerobic and/or anaerobic 07/28/2021 DT Culture, bacteria. Anaerobic bacteria not further identified. 9:42 AM PLASTIC SHEETS SUPERVISOR Anaerobic + (A) [facility] Specimen (Source) Anatomical Collection Method Collection Time Re ceived Time Location / / Volume Laterality Sinus Contents 07/26/2021 8:26 AM (Nose) PLASTIC SHEETS SUPERVISOR Toro Pena M.D. LAB MICROBIOLOGY - GENERAL O GLADYS Performing Organization Address City/State/ZIP Code Phon e Number [facility] - [address] [place], [place] [address] [facility] [place] [address] [facility] [address] [...] tablet 1,000 mg Given 07/26/2021 12:20 PM PLASTIC SHEETS SUPERVISOR 1,00 0 mg (TYLENOL) 1,000 mg, oral, Every 6 hours, First dose on Fri07/26/21 at 1200, Orally or per feeding tube. acetaminophen tablet 650 mg (TYLENOL) Given 07/26/2021 7:24 AM PLASTIC SHEETS SUPERVISOR 650 mg 650 mg, oral, Once, On Shraddha 07/26/21 at 1400, For 1 dose, Pre-Op EPINEPHrine injection 30 mg (ADRENALIN) 30 mg, topical, Once in surgery, other, OR use only - soak pledget prior to nasal administration, Starting on Fri07/26/21 at 0645, For 1 dose, Intra-Op ipratropium-albuteroL 0.5-2.5 mg/3 mL nebulizer Given 07/26/2021 7:17 AM PLASTIC SHEETS SUPERVISOR 3 mL solution 3 mL (DUONEB) 3 mL, nebulization, Once, On Fri07/26/21 at 0630, For 1 dose, Pre-Op ketamine injection 10 mg (KETALAR) Given 07/26/2021 12:01 PM PLASTIC SHEETS SUPERVISOR 10 mg 10 mg, intravenous, Once as needed, Refractory moderate pain or score 4-6 of 10, Refractory severe pain score 7-10 of 10 after fentanyl or hydromorphone administration, Pain sedation mismatch AND RASS less than -1, Starting on Shraddha 07/26/21 at 1159, For 1 dose, PACU (only) lidocaine-EPINEPHrine 1 %-1:100,000 injection Given 10:43 AM PLASTIC SHEETS SUPERVISOR 7 mL (XYLOCAINE W/EPI) As needed, Starting [...] 10 mg (ROXICODONE) Given 07/26/2021 11:57 AM PLASTIC SHEETS SUPERVISOR 10 mg 10 mg, oral, Every 4 [...] Recently Administered Medications Times are shown in PLASTIC SHEETS SUPERVISOR. Scheduled Medication Order 07/24/2021 07/25/2021 07/26/2021 acetaminophen tablet 1,000 mg (TYLENOL) 1220 (Given - Provider: Berenice Murphy RDemetriusNDemetrius) 1,000 mg, oral, Every 6 hours, First dos e on Shraddha 07/26/21 at 1200, Orally or per feeding tube. acetaminophen tablet 650 mg (TYLENOL) (COMPLETED) 723 (Given - Provider: Maritza Merlos R.N., Arley.M.S.R.N.)1400 (Due) 650 mg, oral, Once, On Shraddha [...] Group 1) 1157 (See Alternative - Provider: Berneice Murphy R.N.) 5 mg, oral, Every 4 [...] documented as of this encounter Care Teams Geological Science Teacher Relationship Specialty Start Date End Date Elsewhere, Pcp PCP - General Family Medicine 07/29/17 [facility] - Laboratory Medicine 04/12/[address] [phone] documented as of this encounter
--- OUTSIDE RECORDS SUMMARY | 2022-05-17 18:33 | XMS_ITS | Encounter Summary ---
:1955 Author Organization [facility] Address [address] [place] [address] Care Team Providers Name Role Phone Elsewhere, Pcp Primary Care Provider Unavailable Reason for Visit Outpatient (Routine) - Closed Specialty Diagnoses / Procedures Referred By Contact Refer red To Contact Otorhinolaryngology Toro Pena M.D . [facility] [address] [place] [phone] Referral ID Status Reason Start Date Expiration Date Visits Requ ested Visits Authorized [id number] Closed 07/03/2021 07/03/2022 1 1 Encounter Details Date Type Department Care Team Description 07/31/2021 Office Visit Department of Toro Pena Rhinosinusiti s Otorhinolaryngology samm Galvan M.D. 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 Toro Pena MD [facility] Department of Otorhinolaryngology - Head & Neck Surgery GING MACHINE OPERATOR documented in 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 [address] [place] [phone] 05/23/2022 Clinical Admitting/Central Communication Scheduling 05/27/2022 Comprehensive Visit Orthopedic Surgery Markus Sams M.D., Ph.D. [address] [place] [phone] 05/29/2022 Office Visit Otorhinolaryngology Dex Matta APRN, C.N.P., M.S.N. [address] [place] [address] [phone] 05/29/2022 Office Visit Otorhinolaryngology Nadeem Maradiaga, Miri.-Arley., M.S. [address] [place] [phone] 05/31/2022 Appointment Radiology Guilherme Matt, RASTA, PMaryanne., M.S. [address] [place] [phone] 06/05/2022 Appointment Laboratory Medicine Angélica Granger P.A.-C. [address] [place] [address] [phone] 06/19/2022 Appointment Laboratory Medicine Angélica Granger P.A.-C. [address] [place] [phone] 07/03/2022 Appointment Laboratory Medicine Angélica Granger P.A.-C. [address] [place] [phone] 07/17/2022 Appointment Laboratory Medicine Angélica Granger P.A.-C. [address] [place] [phone] 07/31/2022 Appointment Laboratory Medicine Angélica Granger P.A.-C. [address] [place] [phone] 08/14/2022 Appointment Laboratory Medicine Angélica Granger P.A.-C. [address] [place] [address] [phone] 08/28/2022 Appointment Laboratory Medicine Angélica Granger P.A.-C. [address] [place] [phone] documented as of this encounter Visit Diagnoses Diagnosis Rhinosinusitis Chronic - Primary documented in this encounter Additional Health Concerns Assessment Noted Time PHQ-9 Depression Total Score: 4 11/28/2020 10:17 AM CD T documented as of this encounter Care Teams Acquisition Analyst Relationship Specialty Start Date End Date Elsewhere, Pcp PCP - General Family Medicine 07/29/17 [facility] - Laboratory Medicine 04/12/[address] [address] documented as of this encounter
--- OUTSIDE RECORDS SUMMARY | 2022-05-17 18:33 | XMS_ITS | Encounter Summary ---
:1955 Author Organization [facility] Address [address] [place] [address] Care Team Providers Name Role Phone Elsewhere, Pcp Primary Care Provider Unavailable Reason for Visit Auth/Cert Specialty Diagnoses / Procedures Referred By Contact Refer red To Contact Diagnoses Rhinosinusitis Chronic Rhinosinusitis Chronic [J32.8] Procedures AZ NSL/SINS NDSC SPHN TISS RMVL AZ ENDO NSL MAX ANTROST W RMV TIS AZ ENDO NSL W FRNTL SINUS EXPLOR AZ SEPTO/SUBM RESEC W/WO CART GRFT AZ SUBMUC RSECT TURB PRTL/COMPLT AZ STRTCTC COMP-ASSIST CRNL EXTRA ENDOSCOPIC SPHENOIDOTOMY WIT H TISSUE REMOVAL ETHMOIDECTOMY ENDOSCOPY ENDOSCOPIC MAXILLARY ANTROSTOMY WITH TISSUE REMOVAL SINUSOTOMY ENDOSCOPY FRONTAL SEPTOPLASTY REDUCTION TURBINATE INFERIOR EXTRADURAL COMPUTER NAVIGATION, proceed as indicated Referral ID Status Reason Start Date Expiration Date Visits Requ ested Visits Authorized [id number] 1 1 Encounter Details Date Type Department Care Team Description 07/26/2021 Anesthesia Event RST ROMB MAIN OR Addis Mcdaniel, [address] [facility] [place] [phone] [facility] [place] [phone] [place] [phone] (Wo rk) Anesthesia Record Procedure Summary Procedure [...] h andoff to the receiving staff during [facility] we 1. Identified the patient [...] b y 07/26/21; Placement Leisa Badillo, Leisa Badlilo, Time: 0800 (created via CATIE GREENE APRN, [...] at Date Recorded Male 05/16/2020 4:27 PM APPLICATOR SPRAYER documented as of this encounter OR Notes Anesthesia Postprocedure Evaluation - Elizabeth Sena M.D. - 07/26/2021 12:03 PM CST Patient: Bruce Singh Procedure Summary Date: 07/26/21 Room / Location: [address] [facility] in [place], [place] Anesthesia Start: 07 Anesthesia Stop: 1153 [...] with the significant improvement of his symptoms. ICATOR SPRAYER Anesthesia Procedure Notes - Leisa Badillo APRN, CRNA - 07/26/2021 8:27 AM APPLICATOR SPRAYER Associated Order(s): Invasive Catheter Invasive Catheter Date/Time: [...] yes Complications - arterial: none ATTESTATION STATEMENT ICATOR SPRAYER Anesthesia Procedure Notes - Leisa Badillo APRN, CRNA - 07/26/2021 8:26 AM APPLICATOR SPRAYER Associated Order(s): Airway Airway Date/Time: 07/26/2021 8:00 [...] successful Airway event: no complications ATTESTATION STATEMENT ICATOR SPRAYER Anesthesia Preprocedure Evaluation - Addis Mcdaniel M.D. [...] Pre-op diagnosis: Rhinosinusitis Chronic [J32.8]. Location: [place] [address] / [facility] in [place], [place] Providers: Toro Pena M.D. Pertinent components [...] with patient /legal guardian or through an park interpreter. Risks/Benefits/Alternatives of Blood transfusion discussed with patient / legal guardian, including an opportunity to ask questions and/or decline some or all transfusion therapies. The patient / legalguardian consented to the use of all blood products, as deemed medically necessary Approval to Proceed: approved for anesthesia ICATOR SPRAYER documented in 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 [address] [place] [phone] 05/23/2022 Clinical Admitting/Central Communication Scheduling 05/27/2022 Comprehensive Visit Orthopedic Surgery Markus Sams M.D., Ph.D. [address] [place] [phone] 05/29/2022 Office Visit Otorhinolaryngology Dex Matta APRN, C.N.P., M.S.N. [address] [place] [address] [phone] 05/29/2022 Office Visit Otorhinolaryngology Nadeem Maradiaga, P.Murtaza.-Arley., M.S. [address] [place] [phone] 05/31/2022 Appointment Radiology Guilherme Matt MPAS, PMaryanne., M.S. [address] [place] [phone] 06/05/2022 Appointment Laboratory Medicine Angélica Granger P.A.-C. [address] [place] [address] [phone] 06/19/2022 Appointment Laboratory Medicine Angélica Granger P.A.-C. [address] [place] [phone] 07/03/2022 Appointment Laboratory Medicine Angélica Granger P.A.-C. [address] [place] [phone] 07/17/2022 Appointment Laboratory Medicine Angélica Granger P.A.-C. [address] [place] [phone] 07/31/2022 Appointment Laboratory Medicine Angélica Granger P.A.-C. [address] [place] [phone] 08/14/2022 Appointment Laboratory Medicine Angélica Granger P.A.-C. [address] [place] [phone] 08/28/2022 Appointment Laboratory Medicine Angélica Granger P.A.-C. [address] [place] [phone] documented as of this encounter Procedures Procedure Name Priority Date/Time Associated Comments Diagnosis LDA ANE ARTERIAL LINE Routine 07/26/2021 8:27 AM Results for this INSERTION APPLICATOR SPRAYER procedure are i n the results section. AZ ARTL CATH/CNULA Routine 07/26/2021 8:27 AM Res ults for this MONITOR PERC APPLICATOR SPRAYER procedure are i n the results section. LDA ANE ENDOTRACHEAL Routine 07/26/2021 8:00 AM R esults for this AIRWAY APPLICATOR SPRAYER procedure are i n the results section. documented in this encounter Results AZ ARTL CATH/CNULA MONITOR PERC, LDA ANE ARTERIAL LINE INSERTION (07/26/2021 8:27 AM APPLICATOR SPRAYER) Narrative Leisa Badillo APRN, CRNA - 07/26/2021 8:27 AM APPLICATOR SPRAYER Leisa Badillo APRN, CRNA ? 07/26/2021 ??8:27 [...] LDA ANE ENDOTRACHEAL AIRWAY (07/26/2021 8:00 AM APPLICATOR SPRAYER) Narrative Leisa Badillo APRN, CRNA - 07/26/2021 8:00 AM APPLICATOR SPRAYER Leisa Badillo APRN, CRNA ? 07/26/2021 ??8:27 [...] 5 % injection Given 07/26/2021 10:55 AM APPLICATOR SPRAYER 250 mL intravenous, As needed, Starting on Shraddha 07/26/21 at 1055, Anesthesia Intra-op albuterol 90 mcg/actuation inhaler Given 07/26/2021 8:07 AM APPLICATOR SPRAYER 4 puffs inhalation, As needed, Starting on Shraddha 07/26/21 at 0807, Anesthesia Intra-op ceFAZolin injection (ANCEF) Given 07/26/2021 11:04 AM APPLICATOR SPRAYER 2 g intravenous, As needed, Starting on Shraddha 07/26/21 at 0811, Anesthesia Intra-op Given 07/26/2021 8:11 AM APPLICATOR SPRAYER 2 g dexAMETHasone injection (DECADRON) Given 07/26/2021 8:37 AM APPLICATOR SPRAYER 4 mg intravenous, As needed, Starting on Shraddha 07/26/21 at 0837, Anesthesia Intra-op Given 07/26/2021 8:17 AM APPLICATOR SPRAYER 4 mg dexmedeTOMIDine 80 mcg/20 mL (4 mcg/mL) Given 07/26/2021 9:09 AM APPLICATOR SPRAYER 20 mcg injection (PRECEDEX) intravenous, As needed, Starting on Shraddha 07/26/21 at 0851, Anesthesia Intra-op Given 07/26/2021 8:59 AM APPLICATOR SPRAYER 20 mcg Given 07/26/2021 8:51 AM APPLICATOR SPRAYER 20 mcg dexmedeTOMIDine injection (PRECEDEX) Given 07/26/2021 12:15 PM APPLICATOR SPRAYER 24 mcg intravenous, As needed, Starting on Shraddha 07/26/21 at 1215, Anesthesia Intra-op fentaNYL injection (SUBLIMAZE) Given 07/26/2021 11:37 AM APPLICATOR SPRAYER 50 mcg intravenous, As needed, Starting on Shraddha 07/26/21 at 0829, Anesthesia Intra-op Given 07/26/2021 8:29 AM APPLICATOR SPRAYER 100 mcg glycopyrrolate injection (ROBINUL) Given 07/26/2021 11:28 AM APPLICATOR SPRAYER 0.2 mg intravenous, As needed, Starting on Shraddha 07/26/21 at 1126, Anesthesia Intra-op Given 07/26/2021 11:26 AM APPLICATOR SPRAYER 0.2 mg lactated ringers New Bag 07/26/2021 7:44 AM APPLICATOR SPRAYER intravenous, Continuous Infusion: Per Instructions PRN, Starting on Shraddha 07/26/21 at 0744, Anesthesia Intra-op lidocaine (PF) (cardiac) injection Given 07/26/2021 7:59 AM APPLICATOR SPRAYER 100 mg intravenous, As needed, Starting on Shraddha 07/26/21 at 0759, Anesthesia Intra-op neostigmine methylsulfate injection Given 07/26/2021 11:31 AM CS T 2 mg (BLOXIVERZ) intravenous, As needed, Starting on Shraddha 07/26/21 at 1128, Anesthesia Intra-op Given 07/26/2021 11:28 AM APPLICATOR SPRAYER 2 mg ondansetron (PF) injection (ZOFRAN) Given 07/26/2021 11:15 AM APPLICATOR SPRAYER 4 mg intravenous, As needed, Starting on Shraddha 07/26/21 at 1115, Anesthesia Intra-op phenylephrine injection Given 07/26/2021 10:27 AM APPLICATOR SPRAYER 100 mcg intravenous, As needed, Starting on Shraddha 07/26/21 at 0840, Anesthesia Intra-op Given 07/26/2021 9:55 AM APPLICATOR SPRAYER 100 mcg Given 07/26/2021 9:43 AM APPLICATOR SPRAYER 50 mcg propofol 10 mg/mL infusion Rate/Dose 07/26/2021 25 mcg/kg/min 10.515 (DIPRIVAN) Change 11:13 AM APPLICATOR SPRAYER mL/hr intravenous, Continuous Infusion: Per Instructions PRN, Starting on Shraddha 07/26/21 at 0759, Anesthesia Intra-op Rate/Dose Change 07/26/2021 10:00 AM APPLICATOR SPRAYER 50 mcg/kg/min 21.03 mL/hr Rate/Dose Change 07/26/2021 8:43 AM APPLICATOR SPRAYER 100 mcg/kg/min 42.06 mL/hr propofoL injection (DIPRIVAN) Given 07/26/2021 7:59 AM APPLICATOR SPRAYER 100 mg intravenous, As needed, Starting on Shraddha 07/26/21 at 0759, Anesthesia Intra-op remifentaniL 20 mcg/mL in Rate/Dose 07/26/2021 0.3 mcg/kg/min 63.09 NaCl 0.9% 100 mL infusion Change 11:15 AM APPLICATOR SPRAYER mL/hr (ULTIVA) intravenous, Continuous Infusion: Per Instructions PRN, Starting on Shraddha 07/26/21 at 0801, Anesthesia Intra-op New Bag 07/26/2021 7:59 AM APPLICATOR SPRAYER 0.25 mcg/kg/min 52.575 mL/hr remifentaniL injection (ULTIVA) Given 07/26/2021 7:59 AM APPLICATOR SPRAYER 100 mcg intravenous, As needed, Starting on Shraddha 07/26/21 at 0759, Anesthesia Intra-op rocuronium injection (ZEMURON) Given 07/26/2021 10:26 AM APPLICATOR SPRAYER 10 mg intravenous, As needed, Starting on Shraddha 07/26/21 at 0759, Anesthesia Intra-op Given 07/26/2021 9:59 AM APPLICATOR SPRAYER 10 mg Given 07/26/2021 8:24 AM APPLICATOR SPRAYER 20 mg succinylcholine (PF) injection (ANECTINE ) Given 07/26/2021 7:59 AM APPLICATOR SPRAYER 20 mg intravenous, As needed, Starting on Shraddha 07/26/21 at 0824, Anesthesia Intra-op documented in this encounter Additional Health Concerns Assessment Noted Time PHQ-9 Depression Total Score: 4 11/28/2020 10:17 AM CD T documented as of this encounter Care Teams Supervisor Cemetery Workers Relationship Specialty Start Date End Date Elsewhere, Pcp PCP - General Family Medicine 07/29/17 [facility] - Laboratory Medicine 04/12/[address] [address] documented as of this encounter
--- OUTSIDE RECORDS SUMMARY | 2022-05-17 18:33 | XMS_ITS | Encounter Summary ---
:1955 Author Organization [facility] Address [address] [place] [address] Care Team Providers Name Role Phone Elsewhere, [...] Date Recorded Male 05/16/2020 4:27 PM DEPUTY ATTORNEY GENERAL documented as of 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 [address] [place] [phone] 05/23/2022 Clinical Admitting/Central Communication Scheduling 05/27/2022 Comprehensive Visit Orthopedic Surgery Markus Sams M.D., Ph.D. [address] [place] [phone] 05/29/2022 Office Visit Otorhinolaryngology Dex Matta APRN, C.N.P., M.S.N. [address] [place] [address] [phone] 05/29/2022 Office Visit Otorhinolaryngology Nadeem Maradiaga, PMaryanne., M.S. [address] [place] [phone] 05/31/2022 Appointment Radiology Guilherme Matt MPAS, Jennifer., M.S. [address] [place] [phone] 06/05/2022 Appointment Laboratory Medicine Angélica Granger P.A.-C. [address] [place] [phone] 06/19/2022 Appointment Laboratory Medicine Angélica Granger P.A.-C. [address] [place] [phone] 07/03/2022 Appointment Laboratory Medicine Angélica Granger P.A.-C. [address] [place] [phone] 07/17/2022 Appointment Laboratory Medicine Angélica Granger P.A.-C. [address] [place] [phone] 07/31/2022 Appointment Laboratory Medicine Angélica Granger P.A.-C. [address] [place] [phone] 08/14/2022 Appointment Laboratory Medicine Angélica Granger P.A.-C. [address] [place] [phone] 08/28/2022 Appointment Laboratory Medicine Angélica Granger P.A.-C. [address] [place] [phone] documented as of this encounter Procedures Procedure Name Priority Date/Time Associated Comments Diagnosis OTORHINOLARYNGOLOGY IMAGE Routine 07/26/2021 7:30 Results for this EXAM AM DEPUTY ATTORNEY GENERAL procedure are i n the results section. documented in this encounter Results NOSE-Otorhinolaryngology Image Exam (07/26/2021 7:30 AM DEPUTY ATTORNEY GENERAL) Specimen (Source) Anatomical Location Collection Method / Collectio n Time Received Time / Laterality Volume Narrative IIMS - 07/26/2021 11:39 AM DEPUTY ATTORNEY GENERAL This order has been created and auto-finalized to support the import of images acquired without order. The clini adelfo documentation to support these images can be found on the encounter ana t produced images. Provider Not In System IMG NON RAD IMAGING PROCEDUR ES Performing Organization Address City/State/ZIP Code Phon e Number IIKY IIMS NA documented in this encounter Visit Diagnoses Not on filedocumented in this encounter Additional Health Concerns Assessment Noted Time PHQ-9 Depression Total Score: 4 11/28/2020 10:17 AM CD T documented as of this encounter Care Teams Grounds Cleaner Relationship Specialty Start Date End Date Elsewhere, Pcp PCP - General Family Medicine 07/29/17 [facility] - Laboratory Medicine 04/12/20 [place] [address] documented as of this encounter
--- OUTSIDE RECORDS SUMMARY | 2022-05-17 18:33 | XMS_ITS | Encounter Summary ---
:1955 Author Organization [facility] Address [address] [place] [address] Care Team Providers Name Role Phone Elsewhere, Pcp Primary Care Provider Unavailable Reason for Referral Outpatient (Routine) - Closed Specialty Diagnoses / Procedures Referred By Contact Refer red To Contact Diagnoses Hypertension And Chronic Kidney Disease Stage 5 (HCC) Chronic Cough [facility]iel [facility] Jr[facility] Procedures DX Chest AP or PA and Lateral 2 Views D.O. [address] [place] [phone] Referral ID Status Reason Start Date Expiration Date Visits Requ ested Visits Authorized [id number] Closed 07/30/2021 07/30/2022 1 1 LEX CASE MANAGER Encounter Details Date Type Department Care Team Description 07/30/2021 Orders Only Division of Nephrology Otoniel Norwood ypangelesension And Chronic Kidney Disease Stage 5 (HCC) (Primary Dx); and Hypertension in Arley Rees D.O. Chronic Cough [place], [place] [address] [facility] [address] [place] [phone] Social History Tobacco Use Types Packs/Day Years [...] at Date Recorded Male 05/16/2020 4:27 PM COMPLEX CASE MANAGER documented as of 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 [address] [place] [phone] 05/23/2022 Clinical Admitting/Central Communication Scheduling 05/27/2022 Comprehensive Visit Orthopedic Surgery Markus Sams M.D., Ph.D. [address] [place] [phone] 05/29/2022 Office Visit Otorhinolaryngology Dex Matta APRN, C.N.P., M.S.N. [address] [place] [phone] 05/29/2022 Office Visit Otorhinolaryngology Nadeem Maradiaga P.A.-C., M.S. [address] [place] [phone] 05/31/2022 Appointment Radiology Guilherme Matt MPAS, P.A.-C., M.S. [address] [place] [phone] 06/05/2022 Appointment Laboratory Medicine Angélica Granger P.A.-C. [address] [place] [phone] 06/19/2022 Appointment Laboratory Medicine Angélica Granger P.A.-C. [address] [place] [phone] 07/03/2022 Appointment Laboratory Medicine Angélica Granger P.A.-C. [address] [place] [phone] 07/17/2022 Appointment Laboratory Medicine Angélica Granger P.A.-C. [address] [place] [phone] 07/31/2022 Appointment Laboratory Medicine Angélica Granger P.A.-C. [address] [place] [phone] 08/14/2022 Appointment Laboratory Medicine Angélica Granger P.A.-C. [address] [place] [phone] 08/28/2022 Appointment Laboratory Medicine Emiliejeri Angélica Edmundo Stern [address] [place] [phone] documented as of this encounter Results DX Chest AP or PA and Lateral 2 Views (07/31/2021 9:29 AM COMPLEX CASE MANAGER) Anatomical Region Laterality Modality Chest, Thoracic RST LOS, Thoracic ARZ LOS, Thoracic N/A Digital Radiography FLA LOS Specimen (Source) Anatomical Collection Method Collection Time Re ceived Time Location / / Volume Laterality 07/31/2021 9:45 AM COMPLEX CASE MANAGER Impressions 07/31/2021 10:16 AM COMPLEX CASE MANAGER Comparison 05/23/2021. Stable patchy opacities in the lung bases consistent with bronchiectasis is seen o n the prior chest CT from 06/12/2021. No acute infiltrates. Nipple shadows. Libby l cardiac silhouette. Right IJ catheter tip in the low SVC. Left PICC line tip i n the SVC/RA junction. Degenerative changes of the spine. Narrative 07/31/2021 10:16 AM COMPLEX CASE MANAGER EXAM: ??DX CHEST AP OR PA AND [...] SVC/RA junction. Degenerative changes of the spine. Otoniel Norwood Jr., D.O. [facility] PRO CEDURES documented in this encounter Visit Diagnoses Diagnosis Hypertension And Chronic Kidney Disease Stage 5 (HCC) - Primary Chronic Cough Hypertension And Chronic Kidney Disease Stage 5 (HCC) Chronic Cough documented in this encounter Additional Health Concerns Assessment Noted Time PHQ-9 Depression Total Score: 4 11/28/2020 10:17 AM CD T documented as of this encounter Care Teams Ornamental Ironworker Relationship Specialty Start Date End Date Elsewhere, Pcp PCP - General Family Medicine 07/29/17 [facility] - Laboratory Medicine 04/12/20 [place] [address] documented as of this encounter
--- OUTSIDE RECORDS SUMMARY | 2022-05-17 18:33 | XMS_ITS | Encounter Summary ---
:1955 Author Organization [facility] Address [address] [place] [address] Care Team Providers Name Role Phone Elsewhere, Pcp Primary Care Provider Unavailable Reason for Visit Reason Comments External Lab Entry 07/20/2021 Encounter Details Date Type Department Care Team Description 07/30/2021 Clinical Curt Garces Transplant, Accountant Auditor al Lab Entry Communication Center for Coordinator, (07/20/2021) Transplantation and R.N. 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 [address] [place] [phone] 05/23/2022 Clinical Admitting/Central Communication Scheduling 05/27/2022 Comprehensive Visit Orthopedic Surgery Markus Sams M.D., Ph.D. [address] [place] [phone] 05/29/2022 Office Visit Otorhinolaryngology Dex Matta APRN, C.N.P., M.S.N. [address] [place] [phone] 05/29/2022 Office Visit Otorhinolaryngology Nadeem Maradiaga, P.A.-C., M.S. [address] [place] [phone] 05/31/2022 Appointment Radiology Guilherme Matt MPAS, P.Murtaza.-Arley., M.S. [address] [place] [phone] 06/05/2022 Appointment Laboratory Medicine Angélica Granger P.A.-C. [address] [place] [phone] 06/19/2022 Appointment Laboratory Medicine Angélica Granger P.A.-C. [address] [place] [phone] 07/03/2022 Appointment Laboratory Medicine Angélica Granger P.A.-C. [address] [place] [phone] 07/17/2022 Appointment Laboratory Medicine Angélica Granger P.A.-C. [address] [place] [phone] 07/31/2022 Appointment Laboratory Medicine Angélica Granger P.A.-C. [address] [place] [phone] 08/14/2022 Appointment Laboratory Medicine Angélica Granger P.A.-C. [address] [place] [phone] 08/28/2022 Appointment Laboratory Medicine Angélica Granger P.A.-C. [address] [place] [phone] documented as of this encounter Procedures Procedure Name Priority Date/Time Associated Diagnosis Comme nts EXTP Routine 07/20/2021 9:00 AM Results f or this TRANSPLANT/LIVER - AUTHORIZATION REP procedure are in BLOOD, EXTERNAL LAB the resu lts RESULTS section. documented in this encounter Results Transplant/Liver - Blood, External Lab Results (07/20/2021 9:00 AM AUTHORIZATION REP) Patholo gist Method Time Signature EXT CMV DNA positive Quant, P <200 Specimen (Source) Anatomical Collection Method Collection Time Re ceived Time Location / / Volume Laterality Blood 07/20/2021 9:00 AM AUTHORIZATION REP Narrative This result has an attachment that is no t available. Historical Provider LAB BLOOD NON ADD-ON documented in this encounter Visit Diagnoses Not on filedocumented in this encounter Additional Health Concerns Assessment Noted Time PHQ-9 Depression Total Score: 4 11/28/2020 10:17 AM CD T documented as of this encounter Care Teams Combination Window Installer Relationship Specialty Start Date End Date Elsewhere, Pcp PCP - General Family Medicine 07/29/17 [facility] - Laboratory Medicine 04/12/[address] [address] documented as of this encounter
--- OUTSIDE RECORDS SUMMARY | 2022-05-17 18:34 | XMS_ITS | Encounter Summary ---
:1955 Author Organization [facility] Address [address] [place] [address] Care Team Providers Name Role Phone Elsewhere, Pcp Primary Care Provider Unavailable Reason for Referral Specialty Diagnoses / Procedures Referred By Contact Refer red To Contact [address] [phone] Referral ID Status Reason Start Date Expiration Date Visits Requ ested Visits Authorized Scheduling Instructions PICC site cares IE SCRATCHER Encounter Details Date Type Department Care Team Description 07/16/2021 Orders Only Department of Talia King itis Chronic Infusion Therapy in I., R.N. (Primary Dx) [address] [phone] Social History Tobacco Use Types Packs/Day Years [...] 12/15/2021 organizations such as buddhist groups, unions, fraEnabled Employment or athletic groups, or school groups? How [...] at Date Recorded Male 05/16/2020 4:27 PM CONNIE SCRATCHER documented as of this encounter Plan of Treatment Upcoming Encounters Date Type Specialty Care Team Description 05/22/2022 Appointment Laboratory Medicine Angélica Granger, P.A.-C. [address] [place] [phone] 05/23/2022 Clinical Admitting/Central Communication Scheduling 05/27/2022 Comprehensive Visit Orthopedic Surgery Markus Sams M.D., Ph.D. [address] [place] [phone] 05/29/2022 Office Visit Otorhinolaryngology Dex Matta APRN, C.N.P., M.S.N. [address] [place] [phone] 05/29/2022 Office Visit Otorhinolaryngology Nadeem Maradiaga P.A.-C., M.S. [address] [place] [phone] 05/31/2022 Appointment Radiology Guilherme Matt MPAS, P.A.-C., M.S. [address] [place] [phone] 06/05/2022 Appointment Laboratory Medicine Angélica Granger P.A.-C. [address] [place] [phone] 06/19/2022 Appointment Laboratory Medicine Angélica Granger P.A.-C. [address] [place] [phone] 07/03/2022 Appointment Laboratory Medicine Angélica Granger P.A.-C. [address] [place] [phone] 07/17/2022 Appointment Laboratory Medicine Angélica Granger P.A.-C. [address] [place] [phone] 07/31/2022 Appointment Laboratory Medicine Angélica Granger P.A.-C. [address] [place] [phone] 08/14/2022 Appointment Laboratory Medicine Angélica Granger P.A.-C. [address] [place] [phone] 08/28/2022 Appointment Laboratory Medicine Angélica Granger P.A.-C. [address] [place] [phone] Scheduled Referrals Name Type Priority Associated Diagnoses [...] documented as of this encounter Care Teams Services Account Manager Relationship Specialty Start Date End Date Elsewhere, Pcp PCP - General Family Medicine 07/29/17 [facility] - Laboratory Medicine 04/12/20 [place] [address] documented as of this encounter
--- OUTSIDE RECORDS SUMMARY | 2022-05-17 18:34 | XMS_ITS | Encounter Summary ---
:1955 Author Organization 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 [address] [place] [address] Referral ID Status Reason Start Date Expiration Date Visits Requ ested Visits Authorized [id number] Closed 07/23/2021 07/23/2022 1 1 Scheduling Instructions ROBIN- please call patient to schedule robin ual evaluation. 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 [address] [place] [address] Referral ID Status Reason Start Date Expiration Date Visits Requ ested Visits Authorized [id number] Closed 07/23/2021 07/23/2022 1 1 Scheduling Instructions ROBIN- please call patient to schedule robin ual evaluation. 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 [facility] Hyperlipidemia Chronic Obstructive Pulmonary Disease Without Exacerbation (HCC) Anemia Screening Examination Prostate Cancer [address] Procedures DX Chest AP or PA and [place]ateral 2 [place] [address] Referral ID Status Reason Start Date Expiration Date Visits Requ ested Visits Authorized [id number] Closed 07/23/2021 07/23/2022 1 1 MEDICAL ASSISTANT Outpatient (Routine) - Closed Specialty Diagnoses / Procedures Referred By Contact Refer red To Contact Diagnoses Transplant Liver (HCC) Medication Therapy Nursing Home Not 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 [facility] Hyperlipidemia Chronic Obstructive Pulmonary Disease Without Exacerbation (HCC) Anemia Screening Examination Prostate Cancer [address] [place] [address] Referral ID Status Reason Start Date Expiration Date Visits Requ ested Visits Authorized [id number] Closed 07/23/2021 07/23/2022 1 1 MEDICAL ASSISTANT Transplant (Routine) - Closed Specialty Diagnoses / Procedures Referred By Contact Refer red To Contact Transplant Surgery / Diagnoses Transplant Liver (HCC) Medication Therapy Travel Pta Not 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 [address] [place] [address] Referral ID Status Reason Start Date Expiration Date Visits Requ ested Visits Authorized [id number] Closed 07/23/2021 07/23/2022 1 1 Scheduling Instructions ROBIN- please call patient to schedule robin ual evaluation. 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 [address] [place] [address] Referral ID Status Reason Start Date Expiration Date Visits Requ ested Visits Authorized [id number] Closed 07/23/2021 07/23/2022 1 1 Scheduling Instructions ROBIN- please call patient to schedule robin ual evaluation. Thanks MEDICAL ASSISTANT Encounter Details Date Type Department Care Team Description 07/23/2021 Orders Only Yolie Gamez Trans plant Liver (HCC) (Primary Dx); Center for R, R.N. 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 4 Glomerular Filtration Rate 15-29 (HCC); [place], [place] [address] Chronic Failure Renal End Stage Renal Di sease Dialysis Dependent (HCC); [address] [phone] Other Secondary Hypertension ; [place] [address] (Work) Other Bipolar Disorder (HCC) ; [phone] Hyperlipidemia; Chronic Obstruc tive Pulmonary Disease Without Exacerbation (HCC); Anemia; [facility] Cancer Social History Tobacco Use [...] at Date Recorded Male 05/16/2020 4:27 PM LPN MEDICAL ASSISTANT documented as of 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 [address] [place] [phone] 05/23/2022 Clinical Admitting/Central Communication Scheduling 05/27/2022 Comprehensive Visit Orthopedic Surgery Markus Sams M.D., Ph.D. [address] [place] [phone] 05/29/2022 Office Visit Otorhinolaryngology Dex Matta APRN, C.N.P., M.S.N. [address] [place] [phone] 05/29/2022 Office Visit Otorhinolaryngology Nadeem Maradiaga P.A.-C., M.S. [address] [place] [phone] 05/31/2022 Appointment Radiology Guilherme Matt MPAS, P.A.-C., M.S. [address] [place] [phone] 06/05/2022 Appointment Laboratory Medicine Angélica Granger P.A.-C. [address] [place] [phone] 06/19/2022 Appointment Laboratory Medicine Angélica Granger P.A.-C. [address] [place] [phone] 07/03/2022 Appointment Laboratory Medicine Angélica Granger P.A.-C. [address] [place] [phone] 07/17/2022 Appointment Laboratory Medicine Angélica Granger P.A.-C. [address] [place] [phone] 07/31/2022 Appointment Laboratory Medicine Angélica Granger P.A.-C. [address] [place] [phone] 08/14/2022 Appointment Laboratory Medicine Angélica Granger P.A.-C. [address] [place] [phone] 08/28/2022 Appointment Laboratory Medicine Angélica Granger P.A.-C. 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) Other Secondary Hypertension Other Bipolar Disorder (HCC) Hyperlipidemia Chronic Obstructive Pulmonary Disease Without Exacerbation (HCC) Anemia Screening Examination Prostate Cancer Transplant Liver Outpatient Referral Routine Transplant Liver Expected: office visit (HCC) 11/26/2021 (clinic) Medication Therapy (Approxim ate), Travel Pta Not Expires: Anticoagulant 10/20/2022 Screening Examination Skin Cancer 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) Other Secondary Hypertension Other Bipolar Disorder (HCC) Hyperlipidemia Chronic Obstructive Pulmonary Disease Without Exacerbation (HCC) Anemia Screening Examination Prostate Cancer Transplant Liver Outpatient Referral Routine Transplant Liver Expected: office visit (HCC) 11/26/2021 (clinic) Medication Therapy (Approxim ate), Nursing Home Not Expires: Anticoagulant 10/20/2022 Screening Examination Skin Cancer 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 Aortic calcifications. Otoniel Linares M.D. IMAut[facility] DIAGNOSTIC IMAGING [facility] US Liver Transplant (12/05/2021 10:33 AM [...] City/State/ZIP Code Phon e Number [facility]- [address] [place] [address] [place] [address] [address] [address] System in [place] [address] [address] (ABNORMAL) Albumin, Random, Urine (12/03/2021 8:23 [...] (Urine, 12/03/2021 8:23 AM 12/04/19 22 8:23 Midstream) CDT AM CDT Otoniel Linares M.D. LAB URINE ORDERABLES Performing Organization Address City/State/ZIP Code Phon e Number [facility]- [address] [place] [address] [place] [address] [address] (ABNORMAL) Urinalysis with Microscopic: Urine, Midstream (12/03/2021 8:23 AM CDT) [facility] Time Signature Source Urine, Urine, 12/03/2021 CN[facility] [...] 8.0 12/03/2021 9:07 AM CDT CNFL Specific [place] 1.010 1.001 - 1.035 12/03/2021 9:07 AM [...] Organization Address City/State/ZIP Code Phon e Number [address] [address] [place] [address] System [address] Urinalysis with Microscopic: Urine, Voided (12/03/2021 [...] Result canceled by the ancillar y. Specific [place] CANCELED 12/03/2021 8:50 AM CDT CNFL Comment: [...] 12/04/19 8:23 Voided) CDT AM CDT Narrative [facility]- [facility] - 12/03/2021 8:50 AM CDT Urinalysis w/ Microscopic was cancelled on 12/03/2021 at 08:50; Duplicate test request. Otoniel C Huebert M.D. LAB URINE ORDERABLES Performing Organization Address City/State/ZIP Code Phon e Number [facility]- [address] [place] [address] [place] [address] [place] [address] System [address] (ABNORMAL) Parathyroid Hormone (PTH) (12/03/2021 7:56 AM [...] City/State/ZIP Code Phon e Number [facility]- [address] [place], [place] [address] [place] [address] System in [place] [address] [place] [address] (ABNORMAL) Cystatin C with Estimated GFR, S [...] Laterality Blood (Blood, 12/03/2021 7:56 AM 12/05/19 22 Venous) CDT 11:03 AM CDT Otoniel Linares M.D. LAB BLOOD ADD-ON Performing Organization Address City/[facility]/ZIP Code Phon e Number [facility] - [address] [place], [place] [address] [place] [address] Laboratories-[facility] [address] (ABNORMAL) Tacrolimus, B (12/03/2021 7:56 AM CDT) athologist Signature Tacrolimus, B 1.6 (L) 5.0-15.0 12/04/2021 [facility] (Trough) 11:38 AM CDT ng/mL [...] and its performa nce characteristics determined by [facility] in a manner consistent with CLIA requirements. [...] Number [facility] [address] [place], [place] [address] [facility] [place] [address] Laboratory Medicine and Pathology [address] [...] M.D. LAB BLOOD ADD-ON Performing Organization Address City/[facility] Phon e Number [facility]- [address] [place] [address] [address] [place] [address] System in [address] Prothrombin Time (PT) (12/03/2021 7:56 AM CDT) P athologist Signature Prothrombin 11.1 9.4 - 12.5 [...] Laterality Blood (Blood, 12/03/2021 7:56 AM 12/04/19 8:05 Venous) CDT AM CDT Otoniel Linares M.D. LAB BLOOD ADD-ON Performing Organization Address City/[facility] Phon e Number [place] [address] [place] [address] [place] [address] [address] 25-Hydroxyvitamin D2 and D3 (12/03/2021 7:56 AM CDT) athologist Signature 25-Hydroxy D2 <4.0 ng/mL 12/05/2021 [facility] 3:16 PM CDT 25-Hydroxy D3 42 ng/mL 12/05/2021 [facility] 3:16 PM CDT 25-Hydroxy D 42 ng/mL 12/05/2021 [facility] Total 3:16 PM CDT Comment: ----REFERENCE VALUE---- 25-HYDROXY D TOTAL (D2+D3) Optimum level s in the healthy population are 20-50, patients with bone disease may benefit from higher levels within this r itzel. ----ADDITIONAL INFORMATION---- This test was developed and its performa nce characteristics determined by [facility] in a manner consistent with CLIA requirements. [...] Number [facility] [address] [place] [address] CENTER [facility] [place] [address] Laboratory Medicine and Pathology [address] [...] City/State/ZIP Code Phon e Number [facility]- [facility] [place], [place] [address] [place] [address] System in [place] [address] [address] (ABNORMAL) S-TSH (Thyroid-Stimulating Hormone - Sensitive) (12/03/2021 7:56 AM CDT) athologist Signature TSH, Sensitive 4.9 (H) 0.3 - 4.2 12/03/2021 CNFL mIU/L 8:54 AM CDT Specimen Anatomical Collection Method Collection Time Receive d Time (Source) Location / / Volume Laterality Blood (Blood, 12/03/2021 7:56 AM 12/04/19 8:04 Venous) CDT AM CDT Otoniel Linares M.D. LAB BLOOD ADD-ON Performing Organization Address City/State/ZIP Code Phon e Number [address] [address] [place] [address] System in [place] [address] [address] Hemoglobin A1c (12/03/2021 7:56 AM CDT) athologist Signature Hemoglobin A1c, 5.6 4.2 - 5.6 12/03/2021 CNFL B % 8:46 AM CDT Specimen Anatomical Collection Method Collection Time Receive d Time (Source) Location / / Volume Laterality Blood (Blood, 12/03/2021 7:56 AM 12/04/19 22 8:05 Venous) CDT AM CDT Otoniel Linares M.D. LAB BLOOD ADD-ON Performing Organization Address City/State/ZIP Code Phon e Number [address] [address] [place] [address] System [address] (ABNORMAL) CBC with Differential, Blood (12/03/2021 7:55 AM CDT) Component Value Ref Test Analysis Performed At [facility] gist Range Method Time Signature Hemoglobin 9.8 [...] M.D. LAB BLOOD ADD-ON Performing Organization Address City/[facility] Phon e Number [address] [address] [place] [address] System [address] (ABNORMAL) Phosphorus Inorganic (12/03/2021 7:55 AM CDT) P athologist Signature Phosphorus 4.9 (H) 2.5 - 4.5 12/03/2021 CNFL (Inorganic), P mg/dL 8:41 AM CDT Specimen Anatomical Collection Method Collection Time Receive d Time (Source) Location / / Volume Laterality Blood (Blood, 12/03/2021 7:55 AM 12/04/19 22 8:04 Venous) CDT AM CDT Otoniel Linares M.D. LAB BLOOD ADD-ON Performing Organization Address City/[facility] Code Phon e Number [address] [address] [place] [address] System in [place] [address] Magnesium (12/03/2021 7:55 AM CDT) athologist Signature Magnesium, P 2.3 1.7 - 2.3 12/03/2021 CNFL mg/dL 8:41 AM CDT Specimen Anatomical Collection Method Collection Time Receive d Time (Source) Location / / Volume Laterality Blood (Blood, 12/03/2021 7:55 AM 12/04/19 8:04 Venous) CDT AM CDT Otoniel Linares M.D. LAB BLOOD ADD-ON Performing Organization Address City/[facility] Phon e Number [address] [address] [place] [address] System in [place] [address] Uric Acid (12/03/2021 7:55 AM CDT) athologist Signature Uric Acid, P 5.4 3.7 - 8.0 12/03/2021 CNFL mg/dL 8:41 AM CDT Specimen Anatomical Collection Method Collection Time Receive d Time (Source) Location / / Volume Laterality Blood (Blood, 12/03/2021 7:55 AM 12/04/19 8:04 Venous) CDT AM CDT Otoniel Linares M.D. LAB BLOOD ADD-ON Performing Organization Address City/State/[facility] Code Phon e Number [address] [place] [address] [place] [address] System in [place] [address] [address] Lipid Panel (12/03/2021 7:55 AM CDT) athologist [...] M.D. LAB BLOOD ADD-ON Performing Organization Address [facility]/State/[facility] Code Phon e Number [address] [address] [place] [address] [address] (ABNORMAL) Comprehensive Metabolic Panel (12/03/2021 7:55 [...] eGFR-Black/Afri 17 (L) >=60 12/03/2021 CNFL can [place] mL/min/BSA 8:41 AM CDT Comment: ----ADDITIONAL INFORMATION---- Estimated GFR calculated using the 2009 CKD_EPI creatinine equation. eGFR Non-Black/ <15 (L) >=60 mL/min/BSA 12/03/2021 8:41 AM CDT CN[facility] [place] Comment: ----ADDITIONAL INFORMATION---- [...] City/State/ZIP Code Phon e Number [facility]- [address] [place] [address] [place] [address] [place] [address] System in [place] [address] [address] Bilirubin, Direct (12/03/2021 7:55 AM CDT) P [...] City/State/ZIP Code Phon e Number [facility]- [address] [place] [address] [place] [address] System [address] documented in this encounter Visit Diagnoses Diagnosis Transplant Liver (HCC) - Primary Medication Therapy Travel Pta Not Anticoa gulant Screening Examination Skin Cancer Chronic Kidney Disease Stage 4 Glomerula r Filtration Rate 15-29 (HCC) Chronic Failure Renal End Stage Renal Di sease Dialysis Dependent (HCC) Other Secondary Hypertension Other Bipolar Disorder (HCC) Hyperlipidemia Chronic Obstructive Pulmonary Disease Wi thout Exacerbation (HCC) Anemia Screening Examination Prostate Cancer Transplant Liver (HCC) Medication Therapy Travel Pta Not Anticoa gulant Screening Examination Skin Cancer Chronic Failure Renal End Stage Renal Di sease Dialysis Dependent (HCC) Other Secondary Hypertension Other Bipolar Disorder (HCC) Hyperlipidemia Chronic Obstructive Pulmonary Disease Wi thout Exacerbation (HCC) Anemia Screening Examination Prostate Cancer Transplant Liver (HCC) Medication Therapy Nursing Home Not Anticoa gulant Screening Examination Skin Cancer Chronic Failure Renal End Stage Renal Di sease Dialysis Dependent (HCC) Other Secondary Hypertension Other Bipolar Disorder (HCC) Hyperlipidemia Chronic Obstructive Pulmonary Disease Wi thout Exacerbation (HCC) Anemia Screening Examination Prostate Cancer Transplant Liver (HCC) Medication Therapy Nursing Home Not Anticoa gulant Screening Examination Skin Cancer Chronic Failure Renal End Stage Renal Di sease Dialysis Dependent (HCC) Other Secondary Hypertension Other Bipolar Disorder (HCC) Hyperlipidemia Chronic Obstructive Pulmonary Disease Wi thout Exacerbation (HCC) Anemia Screening Examination Prostate Cancer documented in this encounter Additional Health Concerns Infection Onset Date Last Indicated Resolved Time COVID19 Pending 07/22/2021 07/23/2021 07/23/2021 8:59 PM LPN MEDICAL ASSISTANT Assessment Noted Time PHQ-9 Depression Total Score: 4 11/28/2020 10:17 AM CD T documented as of this encounter Care Teams Air Pollution Engineer Relationship Specialty Start Date End Date Elsewhere, Pcp PCP - General Family Medicine 07/29/17 [facility] - Laboratory Medicine 04/12/[address] [address] documented as of this encounter
--- OUTSIDE RECORDS SUMMARY | 2022-05-17 18:34 | XMS_ITS | Encounter Summary ---
:1955 Author Organization [facility] Address [address] [place] [address] Care Team Providers Name Role Phone Elsewhere, [...] Expiration Date Visits Requ ested Visits Authorized [id number] 1 1 Encounter Details Date Type Department Care Team Description 07/24/2021 Hospital Encounter Outpatient Surgery Unit Zulma Shafer, in [facility] jose Tomlin, Ph.D. 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 documented as of this encounter Last Filed Vital Signs Vital Sign Reading Time Taken Comments Blood Pressure 124/74 07/24/2021 12:29 PM WILDLIFE MANAGER Pulse 59 07/24/2021 11:31 AM WILDLIFE MANAGER Temperature 36.5 ??C (97.7 ??F) 07/24/2021 11:51 AM WILDLIFE MANAGER Respiratory Rate 14 07/24/2021 11:51 AM WILDLIFE MANAGER Oxygen Saturation 94% 07/24/2021 11:51 AM WILDLIFE MANAGER Inhaled Oxygen Concentration - - Weight [...] FOUR TIMES A DAY FOR 34 DOSES doxazosin (CARDURA) 4 Take 1 tablet (4 [...] MOUTH DAILY Transplant Liver (HCC), Medication Therapy Rv Technician Not Anticoagulant tacrolimus (PROGRAF) TAKE 2 CAPSULES BY 360 capsule 3 202110/16/2021 0.5 mg MOUTH TWICE DAILY capsuleIndications: Transplant Liver (HCC), Medication Therapy Rv Technician Not Anticoagulant UNABLE TO FIND by nasal 0 10/12/2021 (alternating) route 2 (two) times a day. Azelastine 1mg to Sinus Rinse twice daily. [facility] ganciclovir 90 mg in Infuse 90 mg [...] magnesium, and 400 IU of vitamin D doxycycline monohydrate Take 1 tablet (100 20 tablet 0 02/0 08/202103/2022 (ADOXA) 100 mg tablet mg total) by mouth 2 (two) times a day for 10 days. oxyCODONE (ROXICODONE) Take 1 tablet (5 mg [...] Stage Renal Disease Dialysis Dependent (HCC) A warehouse administrative assistant actively participated and was necessary for [...] Shafer M.D., Ph.D. Edited by: Fe Holland, [employer] Sr. Pmp Project Manager 09/03/21 3:56 PM CDT Brief Op Note [...] noted after closure of incision Complications None Beatrice Pizarro LIFE MANAGER documented in 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 [address] [place] [phone] 05/23/2022 Clinical Admitting/Central Communication Scheduling 05/27/2022 Comprehensive Visit Orthopedic Surgery Markus Sams M.D., Ph.D. [address] [place] [phone] 05/29/2022 Office Visit Otorhinolaryngology Dex Matta APRN, C.NFabrice., M.S.N. [address] [place] [phone] 05/29/2022 Office Visit Otorhinolaryngology Nadeem Maradiaga, Edmundo, M.S. [address] [place] [phone] 05/31/2022 Appointment Radiology Guilherme Matt, RASTA, Edmundo, M.S. [address] [place] [phone] 06/05/2022 Appointment Laboratory Medicine Angélica Granger P.A.-C. [address] [place] [phone] 06/19/2022 Appointment Laboratory Medicine Angélica Granger P.A.-C. [address] [place] [phone] 07/03/2022 Appointment Laboratory Medicine Angélica Granger P.A.-C. [address] [place] [phone] 07/17/2022 Appointment Laboratory Medicine Angélica Granger P.A.-C. [address] [place] [phone] 07/31/2022 Appointment Laboratory Medicine Angélica Granger P.A.-C. [address] [place] [phone] 08/14/2022 Appointment Laboratory Medicine Angélica Granger P.A.-C. [address] [place] [phone] 08/28/2022 Appointment Laboratory Medicine Angélica Granger P.A.-C. [address] [place] [phone] documented as of this encounter Procedures Procedure Name Priority Date/Time Associated Diagnosis Comme nts ADULT OXYGEN THERAPY Routine 07/24/2021 11:18 AM WILDLIFE MANAGER CREATION FISTULA 07/24/2021 8:45 AM Chronic Failure Re nal BRACHIOCEPHALIC WILDLIFE MANAGER End Stage Renal ARTERIOVENOUS Disease Dialysis [...] 20 mL/hr 20 mL/hr 20 mL/hr, intravenous, WILDLIFE MANAGER Continuous, Starting on Fri07/24/21 at 0930, [...] % IVPB 1,000 Given 07/24/2021 8:15 AM WILDLIFE MANAGER 1,000 mg 200 mL/hr mg 1,000 [...] Recently Administered Medications Times are shown in WILDLIFE MANAGER. Scheduled Medication Order 07/22/2021 07/23/2021 07/24/2021 [...] documented as of this encounter Care Teams Pillowcase Sewer Relationship Specialty Start Date End Date Elsewhere, Pcp PCP - General Family Medicine 07/29/17 [facility] - Laboratory Medicine 04/12/[address] [address] documented as of this encounter
--- OUTSIDE RECORDS SUMMARY | 2022-05-17 18:34 | XMS_ITS | Encounter Summary ---
:1955 Author Organization [facility] Address [address] [place] [address] Care Team Providers Name Role Phone Elsewhere, [...] Expiration Date Visits Requ ested Visits Authorized [id number] 1 1 Encounter Details Date Type Department Care Team Description 07/24/2021 Anesthesia Event RST ANA PIZARRO OR Samson Piedra M.D. [address] [place] [address] [address] [facility] [place] [phone] Anesthesia Record Procedure Summary Procedure Name [...] h andoff to the receiving staff during [facility] ch we 1. Identified the patient 2. Ident [...] Ell en J, Time: 151; Catheter Arabella Hernandez R.N. R.N. Length (cm): 23 cm; Removal Date: 10/16/21; Removal Time: 1500; Removal Reason: Completion of therapy PICC Single Lumen Placement Date: 06/14/21 1101 by 10/15/21 0800 by 06/14/21; Placement Maritza Guy Gershman, Melanie Time: 110; Size: 5 Fr; R.N. R, R.N. Description: single lumen; Length: 29 cm; Orientation: Left; Location: Chest; Site Prep: Chlorhexidine (Preferred); Local Anesth: Subcutaneous lidocaine; Inserted By: Dr. Sheppard; Insertion Attempts: 1; Placement Verification: X-ray; Removal Date: 10/15/21; Removal Time: 0800; Removal Reason: No longer in place Peripheral IV Placement Date: 07/24/21 0721 by 07/24/21 1238 b y 07/24/21; Placement [...] Blunt Gershma n, Melanie Lower; 10/16/21; 1622 R.NDemetrius R, R.N. 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 - 07/24/2021 12:53 PM CST Patient: Bruce Singh Procedure Summary Date: 07/24/21 Room / Location: [place] [address] / [facility] in [place], [place] Anesthesia Start: 0858 Anesthesia Stop: 1125 Procedure: CREATION FISTULA BRACHIOCEPHALIC ARTERIOVENOUS. (Right ) [...] Post Op nausea/vomiting: none Hydration status: euvolemic ULAR SHEAR OPERATOR Anesthesia Preprocedure Evaluation - Samson Jefferson M.D. - 07/24/2021 8:58 AM CST Preprocedure Anesthesia & H&P Assessment Procedure Summary Date/Time: 07/24/21 0906 Procedure: CREATION FISTULA BRACHIOCEPHALIC ARTERIOVENOUS. 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 Location: [place] [address] / [facility] in [place], [place] Providers: Dario Shafer M.D., Ph.D. Pertinent [...] with patient /legal guardian or through an inspector and hand packager. Risks/Benefits/Alternatives of Blood transfusion discussed with patient / legal guardian, including an opportunity to ask questions and/or decline some or all transfusion therapies. The patient / legalguardian consented to the use of all blood products, as deemed medically necessary Approval to Proceed: approved for anesthesia ULAR SHEAR OPERATOR documented in 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 [address] [place] [phone] 05/23/2022 Clinical Admitting/Central Communication Scheduling 05/27/2022 Comprehensive Visit Orthopedic Surgery Markus Sams M.D., Ph.D. [address] [place] [phone] 05/29/2022 Office Visit Otorhinolaryngology Dex Matta APRN, CDemetriusNDemetriusP., M.S.N. [address] [place] [phone] 05/29/2022 Office Visit Otorhinolaryngology Nadeem Maradiaga, Jennifer., M.S. [address] [place] [phone] 05/31/2022 Appointment Radiology Guilherme Matt, RASTA, Jennifer., M.S. [address] [place] [phone] 06/05/2022 Appointment Laboratory Medicine Angélica Granger P.A.-C. [address] [place] [phone] 06/19/2022 Appointment Laboratory Medicine Angélica Granger P.A.-C. [address] [place] [phone] 07/03/2022 Appointment Laboratory Medicine Angélica Granger P.A.-C. [address] [place] [phone] 07/17/2022 Appointment Laboratory Medicine Angélica Granger P.A.-C. [address] [place] [phone] 07/31/2022 Appointment Laboratory Medicine Angélica Granger P.A.-C. [address] [place] [phone] 08/14/2022 Appointment Laboratory Medicine Angélica Granger P.A.-C. [address] [place] [phone] 08/28/2022 Appointment Laboratory Medicine Angélica Granger P.A.-C. [address] [place] [phone] documented as of this encounter Visit Diagnoses Not on filedocumented in this encounter Administered Medications Inactive Administered Medications - up to 3 most recent administrations Medication Order MAR Action Action Date Dose Rate Site fentaNYL injection (SUBLIMAZE) Given 07/24/2021 9:36 AM CIRCULAR SHEAR OPERATOR 25 mcg intravenous, As needed, Starting on Fri07/24/21 at 0936, Anesthesia Intra-op lactated ringers New Bag 07/24/2021 8:58 AM CIRCULAR SHEAR OPERATOR intravenous, Continuous Infusion: Per Instructions PRN, Starting on Fri07/24/21 at 0858, Anesthesia Intra-op lidocaine (PF) (cardiac) injection Given 07/24/2021 9:07 AM CIRCULAR SHEAR OPERATOR 40 mg intravenous, As needed, Starting on Fri07/24/21 at 0907, Anesthesia Intra-op propofol 10 mg/mL infusion New Bag 07/24/2021 10:54 AM 60 mcg/kg/m in 27 mL/hr (DIPRIVAN) CIRCULAR SHEAR OPERATOR intravenous, Continuous Infusion: Per Instructions PRN, Starting on Fri07/24/21 at 0904, Anesthesia Intra-op Rate/Dose Change 07/24/2021 10:44 AM CIRCULAR SHEAR OPERATOR 60 mcg/kg/min 27 mL/hr Rate/Dose Change 07/24/2021 9:59 AM CIRCULAR SHEAR OPERATOR 75 mcg/kg/min 33.75 mL/hr propofol bolus from bag (DIPRIVAN) Given 07/24/2021 9:15 AM CIRCULAR SHEAR OPERATOR 20 mg intravenous, As needed, Starting on Fri07/24/21 at 0907, Anesthesia Intra-op Given 07/24/2021 9:07 AM CIRCULAR SHEAR OPERATOR 20 mg documented in this encounter Additional Health Concerns Assessment Noted Time PHQ-9 Depression Total Score: 4 11/28/2020 10:17 AM CD T documented as of this encounter Care Teams Roofing Tile Sorter Relationship Specialty Start Date End Date Elsewhere, Pcp PCP - General Family Medicine 07/29/17 [facility] - Laboratory Medicine 04/12/20 [place] [phone] documented as of this encounter
--- OUTSIDE RECORDS SUMMARY | 2022-05-17 18:34 | XMS_ITS | Encounter Summary ---
:1955 Author Organization [facility] Address [address] [place] [address] Care Team Providers Name Role Phone Elsewhere, Pcp Primary Care Provider Unavailable Encounter Details Date Type Department Care Team Description 07/23/2021 Lab Department of Toro Holm Con tact With And (Suspected) Exposure To COVID-19; Medicine, [facility].Louie Encounter For Preprocedural Laboratory E xamination (COVID-19) [facility], in [place] [address] [address] [place], [place] [address] [facility] [address] [place] [address] [phone] Social History Tobacco Use Types Packs/Day Years [...] at Date Recorded Male 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 [address] [place] [phone] 05/23/2022 Clinical Admitting/Central Communication Scheduling 05/27/2022 Comprehensive Visit Orthopedic Surgery Markus Sams M.D., Ph.D. [address] [place] [phone] 05/29/2022 Office Visit Otorhinolaryngology Dex Matta APRN, C.N.P., M.S.N. [address] [place] [phone] 05/29/2022 Office Visit Otorhinolaryngology Nadeem Maradiaga, P.Murtaza.-Arley., M.S. [address] [place] [phone] 05/31/2022 Appointment Radiology Guilherme Matt, RASTA, PEdgar.Marie., M.S. [address] [place] [phone] 06/05/2022 Appointment Laboratory Medicine Angélica Granger P.A.-C. [address] [place] [phone] 06/19/2022 Appointment Laboratory Medicine Angélica Granger P.A.-C. [address] [place] [phone] 07/03/2022 Appointment Laboratory Medicine Angélica Granger P.A.-C. [address] [place] [phone] 07/17/2022 Appointment Laboratory Medicine Angélica Granger P.A.-C. [address] [place] [phone] 07/31/2022 Appointment Laboratory Medicine Angélica Granger P.A.-C. [address] [place] [phone] 08/14/2022 Appointment Laboratory Medicine Angélica Granger P.A.-C. [address] [place] [phone] 08/28/2022 Appointment Laboratory Medicine Angélica Granger P.A.-C. [address] [place] [phone] documented as of this encounter Procedures Procedure Name Priority Date/Time Associated Diagnosis Comme nts SARS CORONAVIRUS-2 Routine 07/23/2021 9:20 AM Contact With And Results for this RNA, V BOXING INSTRUCTOR (Suspected) Exposure procedu re are in To COVID-19 the results Encounter For section. Preprocedural Laboratory Examination (COVID-19) documented in this encounter Results SARS Coronavirus-2 RNA, V Asymptomatic (07/23/2021 9:20 AM BOXING INSTRUCTOR) [facility] Method Time Signature SARS-CoV-2 Swab, 07/23/2021 MKTO Specimen Nasopharynx 8:59 PM BOXING INSTRUCTOR Source SARS CoV-2 Undetected Undetected 07/23/2021 MKTO RNA, TMA 8:59 PM BOXING INSTRUCTOR Comment: SARS-CoV-2 RNA absent. This result does not rule out COVID-19 in the patient, as the sensitivity of the test depends o n the timing of the specimen collection and the quality of the specim en. Result should be correlated with patient's history and clinical presentat ion. ----ADDITIONAL INFORMATION---- This molecular amplification test was pe rformed using the Aptima SARS-CoV-2 assay ([employer] on the [employer] tem under emergency use authorization (EUA) by the U.S. Food and Drug Administ ration. Fact sheets for this EUA assay can be fo und at the following links: For Healthcare Providers: https://www.[employer] a.gov/media/117611/download For Patients: https://www.fda.gov/media/ 612450/download Specimen Anatomical Collection Method Collection Time Receive d Time (Source) Location / / Volume Laterality Varies 07/23/2021 9:20 AM 3:47 (Nasopharynx) BOXING INSTRUCTOR PM BOXING INSTRUCTOR Toro Pena M.D. LAB MICROBIOLOGY - GENERAL O GLADYS Performing Organization Address City/State/ZIP Code Phon e Number [facility]- [address] [place] [phone] [place] [address] [place] [address] [address] documented in this encounter Visit Diagnoses Diagnosis Contact With And (Suspected) Exposure To COVID-19 Encounter For Preprocedural Laboratory E xamination (COVID-19) documented in this encounter Additional Health Concerns Infection Onset Date Last Indicated Resolved Time COVID19 Pending 07/22/2021 07/23/2021 07/23/2021 8:59 PM BOXING INSTRUCTOR Assessment Noted Time PHQ-9 Depression Total Score: 4 11/28/2020 10:17 AM CD T documented as of this encounter Care Teams Neuropathologist Relationship Specialty Start Date End Date Elsewhere, Pcp PCP - General Family Medicine 07/29/17 [facility] - Laboratory Medicine 04/12/20 [place] [address] documented as of this encounter
--- OUTSIDE RECORDS SUMMARY | 2022-05-17 18:34 | XMS_ITS | Encounter Summary ---
:[address] [facility] Address [address] [place] [address] Care Team Providers Name Role Phone Elsewhere, Pcp Primary Care Provider Unavailable Reason for Visit Reason Comments Med Refill Encounter Details Date Type Department Care Team Description 07/17/2021 Refill [facility] for Yusuf Gutierrez, Med Refill Transplantation and Clinical M.D ., M.P.H. 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 [address] [place] [phone] 05/23/2022 Clinical Admitting/Central Communication Scheduling 05/27/2022 Comprehensive Visit Orthopedic Surgery Markus Sams M.D., Ph.D. [address] [place] [phone] 05/29/2022 Office Visit Otorhinolaryngology Dex Matta, RAMONA, C.N.P., M.S.N. [address] [place] [phone] 05/29/2022 Office Visit Otorhinolaryngology Nadeem Maradiaga, P.Murtaza.-Arley., M.S. [address] [place] [phone] 05/31/2022 Appointment Radiology Guilherme Matt MPAS, PMaryanne., M.S. [address] [place] [address] [phone] 06/05/2022 Appointment Laboratory Medicine Angélica Granger P.A.-C. [address] [place] [address] [phone] 06/19/2022 Appointment Laboratory Medicine Angélica Granger P.A.-C. [address] [place] [phone] 07/03/2022 Appointment Laboratory Medicine Angélica Granger P.A.-C. [address] [place] [phone] 07/17/2022 Appointment Laboratory Medicine Angélica Granger P.A.-C. [address] [place] [phone] 07/31/2022 Appointment Laboratory Medicine Angélica Granger P.A.-C. [address] [place] [phone] 08/14/2022 Appointment Laboratory Medicine Angélica Granger P.A.-C. [address] [place] [phone] 08/28/2022 Appointment Laboratory Medicine Angélica Granger P.A.-C. [address] [place] [phone] documented as of this encounter Visit Diagnoses Diagnosis Transplant Liver (HCC) Medication Therapy Half-Way Not Anticoa gulant documented in this encounter Additional Health Concerns Assessment Noted Time PHQ-9 Depression Total Score: 4 11/28/2020 10:17 AM CD T documented as of this encounter Care Teams Bedspread Folder Relationship Specialty Start Date End Date Elsewhere, Pcp PCP - General Family Medicine 07/29/17 [facility] - Laboratory Medicine 04/12/[address] [address] documented as of this encounter
--- OUTSIDE RECORDS SUMMARY | 2022-05-17 18:34 | XMS_ITS | Encounter Summary ---
:1955 Author Organization [facility] Address [address] [place] [address] Care Team Providers Name Role Phone Elsewhere, Pcp Primary Care Provider Unavailable Encounter Details Date Type Department Care Team Description 07/18/2021 Orders Only Yolie Gamez Trans plant Liver (HCC) (Primary Dx); Center for R, R.N. 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 [address] [place] [phone] 05/23/2022 Clinical Admitting/Central Communication Scheduling 05/27/2022 Comprehensive Visit Orthopedic Surgery Markus Sams M.D., Ph.D. [address] [place] [phone] 05/29/2022 Office Visit Otorhinolaryngology Dex Matta APRN, C.N.P., M.S.N. [address] [place] [phone] 05/29/2022 Office Visit Otorhinolaryngology Nadeem Maradiaga, P.Murtaza.-Arley., M.S. [address] [place] [address] [phone] 05/31/2022 Appointment Radiology Guilherme Matt MPAS, PMaryanne., M.S. [address] [place] [address] [phone] 06/05/2022 Appointment Laboratory Medicine Angélica Granger P.A.-C. [address] [place] [address] [phone] 06/19/2022 Appointment Laboratory Medicine Angélica Granger P.A.-C. [address] [place] [phone] 07/03/2022 Appointment Laboratory Medicine Angélica Granger P.A.-C. [address] [place] [phone] 07/17/2022 Appointment Laboratory Medicine Angélica Granger P.A.-C. [address] [place] [phone] 07/31/2022 Appointment Laboratory Medicine Angélica Granger P.A.-C. [address] [place] [phone] 08/14/2022 Appointment Laboratory Medicine Angélica Granger P.A.-C. [address] [place] [phone] 08/28/2022 Appointment Laboratory Medicine Angélica Granger P.A.-C. [address] [place] [phone] documented as of this encounter Visit Diagnoses Diagnosis Transplant Liver (HCC) - Primary Medication Therapy Mussel Opener Not Anticoa gulant documented in this encounter Additional Health Concerns Infection Onset Date Last Indicated Resolved Time COVID19 Pending 07/20/2021 07/21/2021 07/21/2021 9:42 PM MAILING CLERK COVID19 Pending 07/22/2021 07/23/2021 07/23/2021 8:59 PM MAILING CLERK Assessment Noted Time PHQ-9 Depression Total Score: 4 11/28/2020 10:17 AM CD T documented as of this encounter Care Teams Optical Fabricator Relationship Specialty Start Date End Date Elsewhere, Pcp PCP - General Family Medicine 07/29/17 [facility] - Laboratory Medicine 04/12/20 [place] [phone] documented as of this encounter
--- OUTSIDE RECORDS SUMMARY | 2022-05-17 18:34 | XMS_ITS | Encounter Summary ---
:1955 Author Organization [facility] Address [address] [place] [address] Care Team Providers Name Role Phone Elsewhere, Pcp Primary Care Provider Unavailable Reason for Visit Reason Comments Post-op Postsurgical appointment Encounter Details Date Type Department Care Team Description 07/23/2021 Clinical Department of Jean, Post-op Communication Otorhinolaryngology in [place] Gal[place], (Pos tsurgical [place], [place] M.D. 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 Thank you! Cici KING AND FANNING MACHINE OPERATOR Telephone Encounter - Cici Whitney - 07/24/2021 11:41 AM CST Good morning, Unfortunatley, it looks like that open post op slot has been filled already on 07/31. Is there a different day you would like me to override onto or would you like me to direct overbook a slot still on 07/31? Thank you, Cici KING AND FANNING MACHINE OPERATOR Telephone Encounter - Kecia Trinidad - 07/23/2021 9:38 AM CST FYI, this patient has been moved to 07/26 but his postop appointment is still scheduled for 08/28. If this needs to be moved up to 7-10 days postop please advise as you will be out of town 08/02-08/06 & 08/09-08/10. KING AND FANNING MACHINE OPERATOR documented in 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 [address] [place] [phone] 05/23/2022 Clinical Admitting/Central Communication Scheduling 05/27/2022 Comprehensive Visit Orthopedic Surgery Markus Sams M.D., Ph.D. [address] [place] [phone] 05/29/2022 Office Visit Otorhinolaryngology Dex Matta APRN C.N.P., M.S.N. [address] [place] [phone] 05/29/2022 Office Visit Otorhinolaryngology Nadeem Maradiaga, Jennifer., M.S. [address] [place] [phone] 05/31/2022 Appointment Radiology Guilherme Matt MPAS, Jennifer., M.S. [address] [place] [phone] 06/05/2022 Appointment Laboratory Medicine Angélica Granger P.A.-C. [address] [place] [address] [phone] 06/19/2022 Appointment Laboratory Medicine Angélica Granger P.A.-C. [address] [place] [phone] 07/03/2022 Appointment Laboratory Medicine Angélica Granger P.A.-C. [address] [place] [phone] 07/17/2022 Appointment Laboratory Medicine Angélica Granger P.A.-C. [address] [place] [phone] 07/31/2022 Appointment Laboratory Medicine Angélica Granger P.A.-C. [address] [place] [phone] 08/14/2022 Appointment Laboratory Medicine Angélica Granger P.A.-C. [address] [place] [phone] 08/28/2022 Appointment Laboratory Medicine Angélica Granger P.A.-C. [address] [place] [phone] documented as of this encounter Visit Diagnoses Not on filedocumented in this encounter Additional Health Concerns Infection Onset Date Last Indicated Resolved Time COVID19 Pending 07/22/2021 07/23/2021 07/23/2021 8:59 PM CRACKING AND FANNING MACHINE OPERATOR Assessment Noted Time PHQ-9 Depression Total Score: 4 11/28/2020 10:17 AM CD T documented as of this encounter Care Teams Cytology Manager Relationship Specialty Start Date End Date Elsewhere, Pcp PCP - General Family Medicine 07/29/17 [facility] - Laboratory Medicine 04/12/[address] [address] documented as of this encounter
--- OUTSIDE RECORDS SUMMARY | 2022-05-17 18:34 | XMS_ITS | Encounter Summary ---
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 [address] [place] [phone] 05/23/2022 Clinical Admitting/Central Communication Scheduling 05/27/2022 Comprehensive Visit Orthopedic Surgery Markus Sams M.D., Ph.D. [address] [place] [phone] 05/29/2022 Office Visit Otorhinolaryngology Dex Matta APRN, C.N.P., M.S.N. [address] [place] [phone] 05/29/2022 Office Visit Otorhinolaryngology Nadeem Maradiaga, P.Murtaza.-Arley., M.S. [address] [place] [address] [phone] 05/31/2022 Appointment Radiology Guilherme Matt MPAS, Jennifer., M.S. [address] [place] [address] [phone] 06/05/2022 Appointment Laboratory Medicine Angélica Granger P.A.-C. [address] [place] [address] [phone] 06/19/2022 Appointment Laboratory Medicine Angélica Granger P.A.-C. [address] [place] [phone] 07/03/2022 Appointment Laboratory Medicine Angélica Granger P.A.-C. [address] [place] [phone] 07/17/2022 Appointment Laboratory Medicine Angélica Granger P.A.-C. [address] [place] [phone] 07/31/2022 Appointment Laboratory Medicine Angélica Granger P.A.-C. [address] [place] [phone] 08/14/2022 Appointment Laboratory Medicine Angélica Granger P.A.-C. [address] [place] [phone] 08/28/2022 Appointment Laboratory Medicine Angélica Granger P.A.-C. [address] [place] [phone] documented as of this encounter Visit Diagnoses Diagnosis Rhinosinusitis Chronic - Primary documented in this encounter Additional Health Concerns Assessment Noted Time PHQ-9 Depression Total Score: 4 11/28/2020 10:17 AM CD T documented as of this encounter Care Teams Special Services Agent Relationship Specialty Start Date End Date Elsewhere, Pcp PCP - General Family Medicine 07/29/17 [facility] - Laboratory Medicine 04/12/[address] [address] documented as of this encounter
--- OUTSIDE RECORDS SUMMARY | 2022-05-17 18:34 | XMS_ITS | Encounter Summary ---
:1955 Author Organization [facility] Address [address] [place] [address] Care Team Providers Name Role Phone Elsewhere, Pcp Primary Care Provider Unavailable Encounter Details Date Type Department Care Team Description 07/17/2021 Clinical Department of Toro Pena Otorhinolaryngology in Sada Galvan [place], [place] [address] [facility] [address] [place] [phone] Social History Tobacco Use Types Packs/Day Years [...] Date Recorded Male 05/16/2020 4:27 PM HEALTH INFORMATION MANAGEMENT DIRECTOR documented as of this encounter Miscellaneous Notes Telephone Encounter - Damaso Yañez M.D. - 07/17/2021 4:30 PM CST He is scheduled for surgery on 07/26 after getting the green-light from Dr. Barber. Thanks! -Damaso TH INFORMATION MANAGEMENT DIRECTOR Telephone Encounter - Carly Nieto - 07/17/2021 [...] try to get it scheduled here at [facility] to do dialysis in the morning and surgery later? Not sure if that would be an option for him, otherwise he would need to have a Friday or surgicaldate. Thank you, Carly TH INFORMATION MANAGEMENT DIRECTOR Telephone Encounter - Kecia Trinidad - 07/17/2021 [...] for him. He can be reached at [phone] TH INFORMATION MANAGEMENT DIRECTOR documented in 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 [address] [place] [phone] 05/23/2022 Clinical Admitting/Central Communication Scheduling 05/27/2022 Comprehensive Visit Orthopedic Surgery Markus Sams M.D., Ph.D. [address] [place] [phone] 05/29/2022 Office Visit Otorhinolaryngology Dex Matta APRN, C.N.P., M.S.N. [address] [place] [phone] 05/29/2022 Office Visit Otorhinolaryngology Nadeem Maradiaga, P.Murtaza.-Arley., M.S. [address] [place] [phone] 05/31/2022 Appointment Radiology Guilherme Matt MPAS, P.Murtaza.Marie., M.S. [address] [place] [phone] 06/05/2022 Appointment Laboratory Medicine Angélica Granger P.A.-C. [address] [place] [phone] 06/19/2022 Appointment Laboratory Medicine Angélica Granger P.A.-C. [address] [place] [phone] 07/03/2022 Appointment Laboratory Medicine Angélica Granger P.A.-C. [address] [place] [phone] 07/17/2022 Appointment Laboratory Medicine Angélica Granger P.A.-C. [address] [place] [phone] 07/31/2022 Appointment Laboratory Medicine Angélica Granger P.A.-C. [address] [place] [phone] 08/14/2022 Appointment Laboratory Medicine Angélica Granger P.A.-C. [address] [place] [phone] 08/28/2022 Appointment Laboratory Angélica Royal P.A.-C. [address] [place] [phone] documented as of this encounter Visit Diagnoses Not on filedocumented in this encounter Additional Health Concerns Assessment Noted Time PHQ-9 Depression Total Score: 4 11/28/2020 10:17 AM CD T documented as of this encounter Care Teams Sports Marketing Coordinator Relationship Specialty Start Date End Date Elsewhere, Pcp PCP - General Family Medicine 07/29/17 [facility] - Laboratory Medicine 04/12/[address] [address] documented as of this encounter
--- OUTSIDE RECORDS SUMMARY | 2022-05-17 18:34 | XMS_ITS | Encounter Summary ---
:1955 Author Organization [facility] Address [address] [place] [address] Care Team Providers Name Role Phone Elsewhere, Pcp Primary Care Provider Unavailable Encounter Details Date Type Department Care Team Description 07/21/2021 Lab Department of [facility] Dario Shafer Fai lure Renal End Stage Medicine, [facility] Sada, Ph.D. ([address] [phone] [place] [address] [phone] Social History Tobacco Use Types Packs/Day Years [...] Date Recorded Male 05/16/2020 4:27 PM DIRECTOR TRANSPORTATION documented as of 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 [address] [place] [phone] 05/23/2022 Clinical Admitting/Central Communication Scheduling 05/27/2022 Comprehensive Visit Orthopedic Surgery Markus Sams M.D., Ph.D. [address] [place] [phone] 05/29/2022 Office Visit Otorhinolaryngology Dex Matta, ELECTRIC TOOL REPAIRER, C.N.P., M.S.N. [address] [place] [phone] 05/29/2022 Office Visit Otorhinolaryngology Nadeem Maradiaga, P.Murtaza.-Arley., M.S. [address] [place] [phone] 05/31/2022 Appointment Radiology Guilherme Matt MPAS, Jennifer., M.S. [address] [place] [address] [phone] 06/05/2022 Appointment Laboratory Medicine Angélica Granger P.A.-C. [address] [place] [phone] 06/19/2022 Appointment Laboratory Medicine Angélica Granger P.A.-C. [address] [place] [phone] 07/03/2022 Appointment Laboratory Medicine Angélica Granger P.A.-C. [address] [place] [phone] 07/17/2022 Appointment Laboratory Medicine Angélica Granger P.A.-C. [address] [place] [phone] 07/31/2022 Appointment Laboratory Medicine Angélica Granger P.A.-C. [address] [place] [phone] 08/14/2022 Appointment Laboratory Medicine Angélica Granger P.A.-C. [address] [place] [phone] 08/28/2022 Appointment Laboratory Medicine Angélica Granger P.A.-C. [address] [place] [phone] documented as of this encounter Procedures Procedure Name Priority Date/Time Associated Diagnosis Comme nts SARS CORONAVIRUS-2 Routine 07/21/2021 9:21 AM Failure Renal En d Results for this RNA, V DIRECTOR TRANSPORTATION Stage (HCC) procedure are i n the results section. documented in this encounter Results SARS Coronavirus-2 RNA, V Asymptomatic (07/21/2021 9:21 AM DIRECTOR TRANSPORTATION) [facility] Method Time Signature SARS-CoV-2 Swab, 07/21/2021 MKTO Specimen Nasopharynx 9:41 PM DIRECTOR TRANSPORTATION Source SARS CoV-2 Undetected Undetected 07/21/2021 MKTO RNA, TMA 9:41 PM DIRECTOR TRANSPORTATION Comment: SARS-CoV-2 RNA absent. This result does not rule out COVID-19 in the patient, as the sensitivity of the test depends o n the timing of the specimen collection and the quality of the specim en. Result should be correlated with patient's history and clinical presentat ion. ----ADDITIONAL INFORMATION---- This molecular amplification test was pe rformed using the Aptima SARS-CoV-2 assay ([employer] on the [employer] tem under emergency use authorization (EUA) by the U.S. Food and Drug Administ ration. Fact sheets for this EUA assay can be fo und at the following links: For Healthcare Providers: https://www.[employer] a.gov/media/886675/download For Patients: https://www.fda.gov/media/ 774936/download Specimen Anatomical Collection Method Collection Time Receive d Time (Source) Location / / Volume Laterality Varies 07/21/2021 9:21 AM 4:38 (Nasopharynx) DIRECTOR TRANSPORTATION PM DIRECTOR TRANSPORTATION Dario Shafer M.D., Ph.D. LAB MICROBIOLOGY - GENERAL ORDERABLES Performing Organization Address City/State/ZIP Code Phon e Number [facility]- [address] [place] [address] [place] [address] System [address] documented in this encounter Visit Diagnoses Diagnosis Failure Renal End Stage (HCC) documented in this encounter Additional Health Concerns Infection Onset Date Last Indicated Resolved Time COVID19 Pending 07/20/2021 07/21/2021 07/21/2021 9:42 PM DIRECTOR TRANSPORTATION Assessment Noted Time PHQ-9 Depression Total Score: 4 11/28/2020 10:17 AM CD T documented as of this encounter Care Teams Multi Craft Maintenance Technician Relationship Specialty Start Date End Date Elsewhere, Pcp PCP - General Family Medicine 07/29/17 [place] - Laboratory Medicine 04/12/20 [place] [address] documented as of this encounter
--- OUTSIDE RECORDS SUMMARY | 2022-05-17 18:34 | XMS_ITS | Encounter Summary ---
:1955 Author Organization [facility] Address [address] [place] [address] Care Team Providers Name Role Phone Elsewhere, Pcp Primary Care Provider Unavailable Reason for Referral Outpatient (Routine) - Closed Specialty Diagnoses / Procedures Referred By Contact Refer red To Contact Diagnoses Failure Renal End Stage (HCC) Follow Up Surgery Exam Fistula Arteriovenous Acquired (HCC) Dario Shafer M.D., [facility] Procedures Hemodialysis Fistula-Graft Right Ph.D. [address] [place], [place] [phone] Referral ID Status Reason Start Date Expiration Date Visits Requ ested Visits Authorized [id number] Closed 07/24/2021 07/24/2022 1 1 PLANER SET UP OPERATOR Outpatient (Routine) - Closed Specialty Diagnoses / Procedures Referred By Contact Refer red To Contact Nephrology and Dario Shafer, Rosalio Cope M.D., Ph.D. [address] [place] [address] Referral ID Status Reason Start Date Expiration Date Visits Requ ested Visits Authorized [id number] Closed 07/24/2021 07/24/2022 1 1 PLANER SET UP OPERATOR Encounter Details Date Type Department Care Team Description 07/24/2021 Orders Only Division of Nephrology Dario Shafer F ollow Up Surgery Exam (Primary Dx); and Hypertension in MWilfred., Ph.D. Failure Renal End Stage (HCC); [place], [place] 200 [facility] Fistula Arteriovenous Acquired (HCC) [address] [place] [phone] Social History Tobacco Use Types Packs/Day Years [...] Date Recorded Male 05/16/2020 4:27 PM TOOL PLANER SET UP OPERATOR documented as of 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 [address] [place] [phone] 05/23/2022 Clinical Admitting/Central Communication Scheduling 05/27/2022 Comprehensive Visit Orthopedic Surgery Markus Sams M.D., Ph.D. [address] [place] [phone] 05/29/2022 Office Visit Otorhinolaryngology Dex Matta APRN CDemetriusNDemetriusP., M.S.N. [address] [place] [phone] 05/29/2022 Office Visit Otorhinolaryngology Nadeem Maradiaga, Jennifer., M.S. [address] [place] [phone] 05/31/2022 Appointment Radiology Guilherme Matt, RASTA, Jennifer., M.S. [address] [place] [phone] 06/05/2022 Appointment Laboratory Medicine Angélica Granger P.A.-C. [address] [place] [phone] 06/19/2022 Appointment Laboratory Medicine Angélica Granger P.A.-C. [address] [place] [phone] 07/03/2022 Appointment Laboratory Medicine Angélica Granger P.A.-C. [address] [place] [phone] 07/17/2022 Appointment Laboratory Medicine Angélica Granger P.A.-C. [address] [place] [address], [place] [phone] 07/31/2022 Appointment Laboratory Medicine Angélica Granger P.A.-C. [address] [place] [phone] 08/14/2022 Appointment Laboratory Medicine Angélica Granger P.A.-C. [address] [place] [phone] 08/28/2022 Appointment Laboratory Medicine Angélica Granger P.A.-C. [address] [place] [phone] Scheduled Referrals Name Type Priority Associated Order [...] documented as of this encounter Care Teams Chocolate Packer Relationship Specialty Start Date End Date Elsewhere, Pcp PCP - General Family Medicine 07/29/17 [facility] - Laboratory Medicine 04/12/[address] [address] documented as of this encounter
--- OUTSIDE RECORDS SUMMARY | 2022-05-17 18:34 | XMS_ITS | Encounter Summary ---
:1955 Author Organization [facility] Address [address] [place] [address] Care Team Providers Name Role Phone Elsewhere, [...] Expiration Date Visits Requ ested Visits Authorized [id number] 1 1 Encounter Details Date Type Department Care Team Description 07/24/2021 Surgery [facility] OR Dario Shafer, CREATION FISTULA [address] [place], Ph.D. BRACHIOCEPHALIC [place], [place] [address] [facility] ARTERIOVENOUS. [address] [place], [place] [phone] Social History Tobacco Use Types Packs/Day Years [...] at Date Recorded Male 05/16/2020 4:27 PM MEETING PLANNER documented as of this encounter Last Filed Vital Signs Vital Sign Reading Time Taken Comments Blood Pressure 128/80 07/24/2021 11:51 AM MEETING PLANNER Pulse 59 07/24/2021 11:31 AM MEETING PLANNER Temperature 36.5 ??C (97.7 ??F) 07/24/2021 11:51 AM MEETING PLANNER Respiratory Rate 14 07/24/2021 11:51 AM MEETING PLANNER Oxygen Saturation 94% 07/24/2021 11:51 AM MEETING PLANNER Inhaled Oxygen Concentration - - Weight - [...] MOUTH DAILY Transplant Liver (HCC), Medication Therapy Photoengraving Proofer Not Anticoagulant tacrolimus (PROGRAF) TAKE 2 CAPSULES BY 360 capsule 3 202110/16/2021 0.5 mg MOUTH TWICE DAILY capsuleIndications: Transplant Liver (HCC), Medication Therapy Photoengraving Proofer Not Anticoagulant UNABLE TO FIND by nasal [...] Take 1 tablet (100 20 tablet 0 /0 08/202107/26/2021 (ADOXA) 100 mg tablet mg total) by mouth 2 (two) times a day for 10 days. oxyCODONE (ROXICODONE) Take 1 tablet (5 mg 10 tablet 0 02/0 08/202110/13/2021 5 mg immediate release total) by [...] Stage Renal Disease Dialysis Dependent (HCC) A acute care certified nursing assistant actively participated and was necessary for [...] Dario Shafer M.D., Ph.D. Edited by: Fe Holland [employer] Management Sr. Client Sales And Service Officer 09/03/21 3:56 PM CDT Brief Op Note [...] closure of incision Complications None Beatrice Pizarro ING PLANNER documented in 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 [address] [place] [address] 05/23/2022 Clinical Admitting/Central Communication Scheduling 05/27/2022 Comprehensive Visit Orthopedic Surgery Markus Sams M.D., Ph.D. [address] [place] [phone] 05/29/2022 Office Visit Otorhinolaryngology Dex Matta APRN, C.N.P., M.S.N. [address] [place] [phone] 05/29/2022 Office Visit Otorhinolaryngology Nadeem Maradiaga P.A.-C., M.S. [address] [place] [phone] 05/31/2022 Appointment Radiology Guilherme Matt MPAS, Edmundo, M.S. [address] [place] [phone] 06/05/2022 Appointment Laboratory Medicine Angélica Granger P.A.-C. [address] [place] [phone] 06/19/2022 Appointment Laboratory Medicine Angélica Granger P.A.-C. [address] [place] [phone] 07/03/2022 Appointment Laboratory Medicine Angélica Granger P.A.-C. [address] [place] [phone] 07/17/2022 Appointment Laboratory Medicine Angélica Granger P.A.-C. [address] [place] [phone] 07/31/2022 Appointment Laboratory Medicine Angélica Granger P.A.-C. [address] [place] [phone] 08/14/2022 Appointment Laboratory Medicine Angélica Granger P.A.-C. [address] [place] [phone] 08/28/2022 Appointment Laboratory Medicine Angélica Granger P.A.-C. [address] [place] [phone] documented as of this encounter Procedures Procedure Name Priority Date/Time Associated Diagnosis Comme nts ADULT OXYGEN THERAPY Routine 07/24/2021 11:18 AM MEETING PLANNER CREATION FISTULA 07/24/2021 8:45 AM Chronic Failure Re nal BRACHIOCEPHALIC MEETING PLANNER End Stage Renal ARTERIOVENOUS Disease Dialysis Dependent [...] 20 mL/hr 20 mL/hr 20 mL/hr, intravenous, MEETING PLANNER Continuous, Starting on Fri07/24/21 at 0930, PACU & Post-Op lidocaine 10 mg/mL (1 %) injection (XYLO DAVID) Given 07/24/2021 11:01 AM MEETING PLANNER 7 mL As needed, Starting on Fri07/24/21 at 1100, Intra-Op Given 07/24/2021 11:00 AM MEETING PLANNER 8 mL oxyCODONE IR tablet 10 mg [...] % IVPB 1,000 Given 07/24/2021 8:15 AM MEETING PLANNER 1,000 mg 200 mL/hr mg 1,000 mg [...] Recently Administered Medications Times are shown in MEETING PLANNER. Scheduled Medication Order 07/22/2021 07/23/2021 07/24/2021 acetaminophen [...] documented as of this encounter Care Teams Slasher Runner Relationship Specialty Start Date End Date Elsewhere, Pcp PCP - General Family Medicine 07/29/17 [facility] - Laboratory Medicine 04/12/[address] [address] documented as of this encounter
--- OUTSIDE RECORDS SUMMARY | 2022-05-17 18:35 | XMS_ITS | Encounter Summary ---
:1955 Author Organization [facility] Address [address] [place] [address] Care Team Providers Name Role Phone Elsewhere, Pcp Primary Care Provider Unavailable Reason for Visit Outpatient (Routine) - Authorized Specialty Diagnoses / Procedures Referred By Contact Refer red To Contact Diagnoses Colitis Cytomegalovirus (HCC) Transplant Liver (HCC) Otoniel Linares M.D. [facility] Procedures Perform central personal lines sales executive: Site care, Flush port(s) [address] [place] [address] Referral ID Status Reason Start Date Expiration Date Visits V isits Requested Authorized [id number] Authorized 06/26/2021 06/26/2022 8 8 Encounter Details Date Type Department Care Team Description 07/09/2021 Infusion Department of Infusion Otoniel Linares Cytomegalovirus (HCC) (Primary Dx); Therapy in Jimmie Tubbs M.D. Transplant Liver (HCC); [place], [place] [address] [phone] Social History Tobacco Use Types Packs/Day Years [...] 12/15/2021 organizations such as cheondoism groups, unions, fraVotigo or athletic groups, or school groups? How [...] Date Recorded Male 05/16/2020 4:27 PM CEREAL MILLER documented as of 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 [address] [place] [phone] 05/23/2022 Clinical Admitting/Central Communication Scheduling 05/27/2022 Comprehensive Visit Orthopedic Surgery Markus Sams M.D., Ph.D. [address] [place] [phone] 05/29/2022 Office Visit Otorhinolaryngology Dex Matta APRN, C.N.P., M.S.N. [address] [place] [phone] 05/29/2022 Office Visit Otorhinolaryngology Nadeem Maradiaga P.A.-C., M.S. [address] [place] [phone] 05/31/2022 Appointment Radiology Guilherme Matt MPAS, Edmundo, M.S. [address] [place] [phone] 06/05/2022 Appointment Laboratory Medicine Angélica Granger P.A.-C. [address] [place] [phone] 06/19/2022 Appointment Laboratory Medicine Angélica Granger P.A.-C. [address] [place] [phone] 07/03/2022 Appointment Laboratory Medicine Angélica Granger P.A.-C. [address] [place] [phone] 07/17/2022 Appointment Laboratory Medicine Angélica Granger P.A.-C. [address] [place] [phone] 07/31/2022 Appointment Laboratory Medicine Angélica Granger P.A.-C. [address] [place] [phone] 08/14/2022 Appointment Laboratory Medicine Angélica Granger P.A.-C. [address] [place] [phone] 08/28/2022 Appointment Laboratory Medicine Angélica Granger P.A.-C. 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 documented in this encounter Additional Health Concerns Assessment Noted Time PHQ-9 Depression Total Score: 4 11/28/2020 10:17 AM CD T documented as of this encounter Care Teams Janitorial Assistant Relationship Specialty Start Date End Date Elsewhere, Pcp PCP - General Family Medicine 07/29/17 [facility] - Laboratory Medicine 04/12/[address] [address] documented as of this encounter
--- OUTSIDE RECORDS SUMMARY | 2022-05-17 18:35 | XMS_ITS | Encounter Summary ---
:1955 Author Organization [facility] Address [address] [place] [address] Care Team Providers Name Role Phone Elsewhere, Pcp Primary Care Provider Unavailable Encounter Details Date Type Department Care Team Description 07/06/2021 Clinical Department of Toro Pena Otorhinolaryngology in [place], [place] [address] [facility] [address] [place] [phone] Social History Tobacco Use Types Packs/Day Years [...] at Date Recorded Male 05/16/2020 4:27 PM SAT MATH TUTOR documented as of this encounter Miscellaneous Notes Telephone Encounter - Toro Pena M.D. - 07/06/2021 7:48 AM CST ----- Message from Otoniel Norwood Jr., D.O. sent at 07/05/2021 5:13 PM SAT MATH TUTOR ----- Regarding: RE: Pre-operative clearance THANKS! No this KACIE is sufficient. Best and thanks Job ----- Message ----- From: Toro Pena M.D. Sent: 07/05/2021 4:22 PM SAT MATH TUTOR To: Otoniel Norwood Jr., D.O. Subject: Pre-operative clearance Dr. Norwood, Mr. 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 You actually just did a pre-operative clearance exam for an upcoming fistula formation. I am also planning upcoming sinus surgery for him. Would that recent pre- operative exam be sufficient or would he require additional work up? Thank you, Toro MATH TUTOR documented in 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 [address] [place] [address] 05/23/2022 Clinical Admitting/Central Communication Scheduling 05/27/2022 Comprehensive Visit Orthopedic Surgery Markus Sams M.D., Ph.D. [address] [place] [phone] 05/29/2022 Office Visit Otorhinolaryngology Dex Matta APRN, C.NDemetriusP., M.S.N. [address] [place] [phone] 05/29/2022 Office Visit Otorhinolaryngology Nadeem Maradiaga, Edmundo, M.S. [address] [place] [phone] 05/31/2022 Appointment Radiology Guilherme Matt, RASTA, Edmundo, M.S. [address] [place] [phone] 06/05/2022 Appointment Laboratory Medicine Angélica Granger P.A.-C. [address] [place] [phone] 06/19/2022 Appointment Laboratory Medicine Angélica Granger P.A.-C. [address] [place] [phone] 07/03/2022 Appointment Laboratory Medicine Angélica Granger P.A.-C. [address] [place] [phone] 07/17/2022 Appointment Laboratory Medicine Angélica Granger P.A.-C. [address] [place] [phone] 07/31/2022 Appointment Laboratory Medicine Angélica Granger P.A.-C. [address] [place] [phone] 08/14/2022 Appointment Laboratory Medicine Angélica Granger P.A.-C. [address] [place] [phone] 08/28/2022 Appointment Laboratory Medicine Angélica Granger P.A.-C. [address] [place] [address] documented as of this encounter Visit Diagnoses Not on filedocumented in this encounter Additional Health Concerns Assessment Noted Time PHQ-9 Depression Total Score: 4 11/28/2020 10:17 AM CD T documented as of this encounter Care Teams Pattern Hand Relationship Specialty Start Date End Date Elsewhere, Pcp PCP - General Family Medicine 07/29/17 [facility] - Laboratory Medicine 04/12/[address] [address] documented as of this encounter
--- OUTSIDE RECORDS SUMMARY | 2022-05-17 18:35 | XMS_ITS | Encounter Summary ---
:1955 Author Organization [facility] Address [address] [place] [address] Care Team Providers Name Role Phone Elsewhere, Pcp Primary Care Provider Unavailable Encounter Details Date Type Department Care Team Description 07/16/2021 Hospital Encounter Department of Trung Plasencia [facility] Laboratory Medicine Edmundo Stern, ([facility]LY [facility]) in [address] [address] [place], [place] [phone] (Work) [phone] Social History Tobacco Use Types Packs/Day Years [...] at Date Recorded Male 05/16/2020 4:27 PM SONAR WATCHSTANDER documented as of this encounter Medications at [...] FOUR TIMES A DAY FOR 34 DOSES ganciclovir 90 mg in Infuse 90 mg [...] by mouth at Hypertension Essential bedtime. Primary doxycycline monohydrate Take 1 tablet (100 20 tablet 0 /0 08/202107/26/2021 (ADOXA) 100 mg tablet mg total) by mouth 2 (two) times a day for 10 days. ipratropium (ATROVENT) Administer 2 sprays 30 mL 11 01/2102/05/2022 21 mcg (0.03 %) nasal into each nostril 2 spray (two) times a day. upto 5 times daily as needed. 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 Azelastine 1mg to Sinus Rinse twice daily. [facility] documented as of 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 [address] [place] [phone] 05/23/2022 Clinical Admitting/Central Communication Scheduling 05/27/2022 Comprehensive Visit Orthopedic Surgery Markus Sams M.D., Ph.D. [address] [place] [phone] 05/29/2022 Office Visit Otorhinolaryngology Dex Matta APRN, C.N.P., M.S.N. [address] [place] [phone] 05/29/2022 Office Visit Otorhinolaryngology Nadeem Maradiaga P.A.-C., M.S. [address] [place] [phone] 05/31/2022 Appointment Radiology Guilherme Matt MPAS, Edmundo, M.S. [address] [place] [phone] 06/05/2022 Appointment Laboratory Medicine Angélica Granger P.A.-C. [address] [place] [phone] 06/19/2022 Appointment Laboratory Medicine Angélica Granger P.A.-C. [address] [place] [phone] 07/03/2022 Appointment Laboratory Medicine Angélica Granger P.A.-C. [address] [place] [phone] 07/17/2022 Appointment Laboratory Medicine Angélica Granger P.A.-C. [address] [place] [phone] 07/31/2022 Appointment Laboratory Medicine Angélica Granger P.A.-C. [address] [place] [phone] 08/14/2022 Appointment Laboratory Medicine Angélica Granger P.A.-C. [address] [place] [phone] 08/28/2022 Appointment Laboratory Medicine Angélica Granger P.A.-C. [address] [place] [phone] documented as of this encounter Procedures Procedure Name Priority Date/Time Associated Diagnosis Comme nts BACTERIA / RIMMA Routine 07/16/2021 8:22 Colitis Cytomegalov irus Results for this CULTURE, BLOOD AM SONAR WATCHSTANDER (HCC) procedure are in the results section. BACTERIA / RIMMA Routine 07/16/2021 8:17 Colitis Cytomegalov irus Results for this CULTURE, BLOOD AM SONAR WATCHSTANDER (HCC) procedure are in the results section. MORPHOLOGY Routine 07/16/2021 8:16 Results for this EVALUATION AM SONAR WATCHSTANDER procedure are i n the results section. CMV DNA Routine 07/16/2021 8:16 Colitis Cytomegalovirus R esults for this DETECT/QUANT, P AM SONAR WATCHSTANDER ([facility]) procedure ar e in the results section. CBC WITH Routine 07/16/2021 8:16 Colitis Cytomegalovirus R esults for this DIFFERENTIAL, B AM SONAR WATCHSTANDER ([facility]) procedure ar e in the results section. documented in this encounter Results Bacteria / Rimma Culture, Blood #2 (07/16/2021 8:22 AM SONAR WATCHSTANDER) [facility] gist Method Time Signature Bacteria/Negar No growth 07/21/2021 [facility] da Culture, after 5 9:02 AM SONAR WATCHSTANDER Blood day/s of incubation. Specimen (Source) Anatomical Collection Method Collection Time Re ceived Time Location / / Volume Laterality Blood (Blood, 07/16/2021 8:22 07/16/2021 8:27 Peripheral Draw) AM SONAR WATCHSTANDER AM SONAR WATCHSTANDER Comment: Specimen Source Site: Blood Trung Plasencia P.A.-C. M.S. LAB MICROBIOLOGY - GENERAL ORDERABLES Performing Organization Address City/[facility] Phon e Number [address] [address] [place] [address] [address] Bacteria / Rimma Culture, Blood #1 (07/16/2021 8:17 AM SONAR WATCHSTANDER) [facility] Signature Bacteria/Negar No growth 07/21/2021 [facility] da Culture, after 5 9:02 AM SONAR WATCHSTANDER Blood day/s of incubation. Specimen (Source) Anatomical Collection Method Collection Time Re ceived Time Location / / Volume Laterality Blood (Blood, 07/16/2021 8:17 07/16/2021 8:26 Peripheral Draw) AM SONAR WATCHSTANDER AM SONAR WATCHSTANDER Comment: Specimen Source Site: Blood Trung Plasencia P.A.-C., M.S. LAB MICROBIOLOGY - GENERAL ORDERABLES Performing Organization Address [facility] Phon e Number [address] [address] [place] [address] (ABNORMAL) Morphology Evaluation (07/16/2021 8:16 AM SONAR WATCHSTANDER) [facility] Signature RBC Morphology See Specific 07/16/2021 [facility] Findings 11:17 AM SONAR WATCHSTANDER PLT Morphology Normal 07/16/2021 [facility] 11:17 AM SONAR WATCHSTANDER Elliptocytes Slight (A) Not Seen 07/16/2021 [facility] 11:17 AM SONAR WATCHSTANDER Poikilocytosis Slight (A) Not Seen 07/16/2021 [facility] 11:17 AM SONAR WATCHSTANDER Schistocytes Slight (A) None Seen 07/16/2021 [facility] 11:17 AM SONAR WATCHSTANDER Specimen Anatomical Collection Method Collection Time Receive d Time (Source) Location / / Volume Laterality Blood 07/16/2021 8:16 AM 8:26 SONAR WATCHSTANDER AM SONAR WATCHSTANDER Trung Plasencia P.A.-C., M.S. LAB BLOOD ADD-ON Performing Organization Address City/State/ZIP Code Phon e Number [facility]- [address] [place] [address] [place] [address] System [address] (ABNORMAL) CMV DNA Detect / Quant, Plasma (07/16/2021 8:16 AM SONAR WATCHSTANDER) [facility] Method Time Signature CMV DNA <35 (A) Undetected 07/17/2021 [facility] Detect/Quant, IU/mL 4:19 PM SONAR WATCHSTANDER P Comment: Result in log IU/mL is <1.54. CMV DNA is detected, but level present i s <35 IU/mL (<1.54 log IU/mL). This assay cannot accurately quantify CMV DNA below this level. ----ADDITIONAL INFORMATION---- The quantification range of this assay i s 35 to 10,000,000 IU/mL (1.54 log to 7.00 log IU/mL). Testing was performed u sing the tika CMV test ([employer] with the tika [employer] System. Specimen Anatomical Collection Method Collection Time Receive d Time (Source) Location / / Volume Laterality Blood (Blood, 07/16/2021 8:16 AM 07/17/19 7:42 Venous) SONAR WATCHSTANDER AM SONAR WATCHSTANDER Trung Plasencia P.A.-C., M.S. LAB MICROBIOLOGY - BLOOD O RDERABLES Performing Organization Address City/State/ZIP Code Phon e Number [facility] [address] [place] [address] SU[facility] [place] [address] Laboratory Medicine and Pathology [address] [place] [address] Dr. MURILLO (ABNORMAL) CBC with Differential, Blood (07/16/2021 8:16 AM SONAR WATCHSTANDER) [facility] Method Time Signature Hemoglobin 10.4 (L) 13.2 - 07/16/2021 [facility] 16.6 g/dL 11:16 AM SONAR WATCHSTANDER Hematocrit 32.0 (L) 38.3 - 07/16/2021 [facility] 48.6 % 11:16 AM SONAR WATCHSTANDER Erythrocytes 3.34 (L) 4.35 - 07/16/2021 [facility] 5.65 11:16 AM SONAR WATCHSTANDER x10(12)/L MCV 95.8 78.2 - 07/16/2021 [facility] 97.9 fL 11:16 AM SONAR WATCHSTANDER RBC Distrib Width 13.3 11.8 - 07/16/2021 [facility] 14.5 % 11:16 AM SONAR WATCHSTANDER Platelet Count 266 135 - 317 07/16/2021 [facility] x10(9)/L 11:16 AM SONAR WATCHSTANDER Leukocytes 5.6 3.4 - 9.6 07/16/2021 [facility] x10(9)/L 11:16 AM SONAR WATCHSTANDER Neutrophils 4.10 1.56 - 07/16/2021 [facility] 6.45 11:16 AM SONAR WATCHSTANDER x10(9)/L Lymphocytes 0.87 (L) 0.95 - 07/16/2021 [facility] 3.07 11:16 AM SONAR WATCHSTANDER x10(9)/L Monocytes 0.53 0.26 - 07/16/2021 [facility] 0.81 11:16 AM SONAR WATCHSTANDER x10(9)/L Eosinophils 0.13 0.03 - 07/16/2021 [facility] 0.48 11:16 AM SONAR WATCHSTANDER x10(9)/L Basophils 0.01 0.01 - 07/16/2021 [facility] 0.08 11:16 AM SONAR WATCHSTANDER x10(9)/L Specimen Anatomical Collection Method Collection Time Receive d Time (Source) Location / / Volume Laterality Blood (Blood, 07/16/2021 8:16 AM 07/16/19 22 8:26 Venous) SONAR WATCHSTANDER AM SONAR WATCHSTANDER Trung Plasencia P.A.-C., M.S. LAB BLOOD ADD-ON Performing Organization Address City/State/ZIP Code Phon e Number [facility]- [address] [place] [address] [place] [address] System [address] documented in this encounter Visit Diagnoses Diagnosis Colitis Cytomegalovirus (HCC) documented in this encounter Additional Health Concerns Assessment Noted Time PHQ-9 Depression Total Score: 4 11/28/2020 10:17 AM CD T documented as of this encounter Care Teams Paraffin Machine Operator Relationship Specialty Start Date End Date Elsewhere, Pcp PCP - General Family Medicine 07/29/17 [facility] - Laboratory Medicine 04/12/20 [place] [address] documented as of this encounter
--- OUTSIDE RECORDS SUMMARY | 2022-05-17 18:35 | XMS_ITS | Encounter Summary ---
:1955 Author Organization [facility] Address [address] [place] [address] Care Team Providers Name Role Phone Elsewhere, Pcp Primary Care Provider Unavailable Reason for Referral Outpatient (Routine) - Closed Specialty Diagnoses / Procedures Referred By Contact Refer red To Contact Diagnoses Transplant Liver (HCC) Medication Therapy Cellular Equipment Installer Not Anticoagulant Colitis Cytomegalovirus (HCC) Trung Plasencia P.A.-C., [facility] Procedures Colonoscopy M.S. [address] [place] [address] Referral ID Status Reason Start Date Expiration Date Visits Requ ested Visits Authorized [id number] Closed 06/14/2021 06/14/2022 1 1 RVISOR FERTILIZER Reason for Visit Outpatient (Routine) - Closed Specialty Diagnoses / Procedures Referred By Contact Refer red To Contact Diagnoses Transplant Liver (HCC) Medication Therapy Cellular Equipment Installer Not Anticoagulant Colitis Cytomegalovirus (HCC) Trung Plasencia P.A.-C., [facility] Procedures Colonoscopy M.S. [address] [place], [place] [phone] Referral ID Status Reason Start Date Expiration Date Visits Requ ested Visits Authorized [id number] Closed 06/14/2021 06/14/2022 1 1 Encounter Details Date Type Department Care Team Description 07/10/2021 Hospital Division of Guy Plasencia Live r (HCC); Encounter Gastroenterology in [place] J, Medicati on Therapy Snf Not Anticoagulant; [place], [place] Edmundo, Colitis Cytomegalovirus (HCC ) [address] [place] [phone] [address] [place] [address] Social History Tobacco Use Types Packs/Day Years [...] Date Recorded Male 05/16/2020 4:27 PM SUPERVISOR FERTILIZER documented as of this encounter Last Filed Vital Signs Vital Sign Reading Time Taken Comments Blood Pressure 139/83 07/10/2021 11:19 AM SUPERVISOR FERTILIZER Pulse 65 07/10/2021 11:19 AM SUPERVISOR FERTILIZER Temperature 36.1 ??C (97 ??F) 07/10/2021 11:19 AM SUPERVISOR FERTILIZER Respiratory Rate 23 07/10/2021 11:19 AM SUPERVISOR FERTILIZER Oxygen Saturation 100% 07/10/2021 11:19 AM SUPERVISOR FERTILIZER Inhaled Oxygen Concentration - - Weight 75 kg (165 lb 5.5 oz) 07/10/2021 10:21 AM SUPERVISOR FERTILIZER Height 174 cm (5' 8.5) 07/10/2021 10:21 AM SUPERVISOR FERTILIZER Body Mass Index 24.77 07/10/2021 10:21 AM SUPERVISOR FERTILIZER documented in this encounter Medications at Time [...] Take 1 tablet (100 20 tablet 0 /08/202107/26/2021 (ADOXA) 100 mg tablet mg total) by [...] MOUTH DAILY Transplant Liver (HCC), Medication Therapy Snf Not Anticoagulant Spiriva Respimat 2.5 INHALE 2 PUFFS BY 4 g 0 01/09/20 21 07/26/2021 mcg/actuation inhaler MOUTH DAILY tacrolimus (PROGRAF) Take 2 capsules (1 360 capsule 3 202007/16/2021 0.5 mg mg total) by mouth 2 capsuleIndications: (two) times a day. Transplant Liver (HCC), Medication Therapy Cellular Equipment Installer Not Anticoagulant UNABLE TO FIND by nasal 0 10/12/2021 (alternating) route 2 (two) times a day. Azelastine 1mg to Sinus Rinse twice daily. [facility] documented as of this encounter H&P Notes Otoniel Gudino M.D., M.H.P.E. - 07/10/2021 10:30 AM CST ASSESSMENT / PLAN Patient Name: Bruce Singh Colonoscopy Procedure Department : DIVISION OF GASTROENTEROLOGY IN [place], [place] SUBJECTIVE Past Medical History: Diagnosis Date ??? Blood Transfusion No Diagnosis 2012 ??? Chronic Kidney Disease Stage 4 Glomerular Filtration Rate 15-29 (HCC) ??? Concussion Loss Of Consciousness Unspecified Duration Initial 2012 ??? Coronary Artery Disease (Unspecified) 2015 ??? Hepatitis Autoimmune (HCC) ??? Hyperlipidemia 2015 ??? Hypertension NOS 2014 ??? Other Complications [...] and Family: Twice a week ??? Attends Zoroastrian Services: More than 4 times per year [...] the Last Year: No Ambulatory Infusion Pump/Implanted Concrete Swimming Pool Installer- PICC Single Lumen 06/14/21 Permanent (tunneled, implanted) [...] 1 Placement Verification: X-ray Lot Number : [id number] Removal Reason (REQUIRED): Removal Catheter Length (cm): Removal Assessment: Hemodialysis Catheter Permanent (tunneled, implanted) Right Chest (Active) 05/31/21 4849 Chest Line Type (REQUIRED): Permanent (tunneled, implanted) [...] Inspection: Soft, Rounded Dental Information: Teeth: Intact RVISOR FERTILIZER documented in 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 [address] [place] [phone] 05/23/2022 Clinical Admitting/Central Communication Scheduling 05/27/2022 Comprehensive Visit Orthopedic Surgery Markus Sams M.D., Ph.D. [address] [place] [phone] 05/29/2022 Office Visit Otorhinolaryngology Dex Matta APRN, C.N.P., M.S.N. [address] [place] [phone] 05/29/2022 Office Visit Otorhinolaryngology Nadeem Maradiaga, P.Keyana.-Arley., M.S. [address] [place] [phone] 05/31/2022 Appointment Radiology Guilherme Matt MPAS, P.Keyana.Marie., M.S. [address] [place] [phone] 06/05/2022 Appointment Laboratory Medicine Angélica Granger P.A.-C. [address] [place] [phone] 06/19/2022 Appointment Laboratory Medicine Angélica Granger P.A.-C. [address] [place] [phone] 07/03/2022 Appointment Laboratory Medicine Angélica Granger P.A.-C. [address] [place] [phone] 07/17/2022 Appointment Laboratory Medicine Angélica Granger P.A.-C. [address] [place] [phone] 07/31/2022 Appointment Laboratory Medicine Angélica Granger P.A.-C. [address] [place] [phone] 08/14/2022 Appointment Laboratory Medicine Angélica Granger P.A.-C. [address] [place] [phone] 08/28/2022 Appointment Laboratory Medicine Angélica Granger P.A.-C. [address] [place] [phone] documented as of this encounter Procedures Procedure Name Priority Date/Time Associated Diagnosis Comme nts SURGICAL PATHOLOGY Routine 07/10/2021 11:02 Resul ts for this AM SUPERVISOR FERTILIZER procedure are i n the results section. COLONOSCOPY Routine 07/10/2021 10:56 Transplant Live r (HCC) Results for this AM SUPERVISOR FERTILIZER Medication Therapy Long proc edure are in Term Not Anticoa gulant the results Colitis Cytomegalovirus sect ion. (HCC) COLONOSCOPY Routine 07/10/2021 10:56 Transplant Live r (HCC) AM SUPERVISOR FERTILIZER Medication Therapy Cellular Equipment Installer Not Anticoa gulant Colitis Cytomegalovirus (HCC) documented in this encounter Results Surgical Pathology (07/10/2021 11:02 AM SUPERVISOR FERTILIZER) Component Value Ref Test Analysis Performed Pathologis t Range Method Time At Signature 07/12/2021 DTL 1:07 PM SUPERVISOR FERTILIZER Participated in Jenny Ta 07/12/2021 DTJolly the M.D. -Pathology 1:07 PM Interpretation Resident SUPERVISOR FERTILIZER Report Leonid Oneal M.D. 07/12/2021 DT L electronically 1:07 PM signed by SUPERVISOR FERTILIZER I verify that I have examined all relevant slides/materials for the specimen(s) and rendered or confirmed the diagnosis. Gross Description Received in formalin labeled with the patient's n gonzalez, 07/12/2021 DTL medical record number, and colon, random sites (colon) 1:07 PM are nine pale grady-red irregular soft tissues, ranging from SUPERVISOR FERTILIZER 0.2-0.5 cm in greatest dimension. Specimens are submitted en toto in cassette A1. ??Grossed by ARG. Disclaimer This test was developed using an analyte specific reag ent. 07/12/2021 DT Its performance characteristics were determined by [place] 1:07 PM [facility] in a manner consistent with CLIA requirements. This SUPERVISOR FERTILIZER test has not been cleared or approved by the U.S. Food and Drug Administration. Interpretation FINAL DIAGNOSIS 07/12/2021 DTL A. ??Colon, random sites, endoscopic biopsy: Mild active 1:07 PM chronic colitis. ??No dysplasia. ??A CMV immunostain is SUPERVISOR FERTILIZER negative. Specimen (Source) Anatomical Collection Method Collection Time Re ceived Time Location / / Volume Laterality Biopsy (Colon) 07/10/2021 11:02 AM SUPERVISOR FERTILIZER Narrative This result has an attachment that is no t available. Otoniel Gudino M.D., M.H.P.E. LAB SURG PATH ORDERABL ES Performing Organization Address City/State/ZIP Code Phon e Number [facility] [address] [place], [place] [address] [facility] [place] [address] [facility] [address] Colonoscopy (07/10/2021 10:56 AM SUPERVISOR FERTILIZER) Specimen (Source) Anatomical Collection Method Collection Time Re ceived Time Location / / Volume Laterality 07/10/2021 10:56 AM SUPERVISOR FERTILIZER Impressions [facility] - 07/10/2021 11:15 AM SUPERVISOR FERTILIZER Post-op Diagnoses: ? - The examined portion of the ile um was normal. ? - Patchy areas of mild inflammati on were found in the entire examined ? colon secondary to colitis. Biops ied. ? - The examination was otherwise n ormal. Narrative [facility] - 07/10/2021 11:15 AM SUPERVISOR FERTILIZER Patela 9 GI GI Patient Name: Bruce Singh [...] bowel preparation was evaluated using the BBPS ([place] ? Bowel Preparation Scale) with sco res [...] Diagnoses Diagnosis Transplant Liver (HCC) Medication Therapy Cellular Equipment Installer Not Anticoa gulant Colitis Cytomegalovirus (HCC) documented in this encounter Additional Health Concerns Assessment Noted Time PHQ-9 Depression Total Score: 4 11/28/2020 10:17 AM CD T documented as of this encounter Care Teams Sales Account Leader Relationship Specialty Start Date End Date Elsewhere, Pcp PCP - General Family Medicine 07/29/17 [facility] - Laboratory Medicine 04/12/[address] [phone] documented as of this encounter
--- OUTSIDE RECORDS SUMMARY | 2022-05-17 18:35 | XMS_ITS | Encounter Summary ---
:1955 Author Organization [facility] Address [address] [place] [address] Care Team Providers Name Role Phone Elsewhere, Pcp Primary Care Provider Unavailable Reason for Visit Reason Comments Med Refill Encounter Details Date Type Department Care Team Description 07/05/2021 Clinical Communication Department of [facility], Med Refill Nephrology in [place] M .D. [address] [phone] Social History Tobacco Use Types Packs/Day Years [...] at Date Recorded Male 05/16/2020 4:27 PM PEDIATRIC CRITICAL CARE NURSE documented as of this encounter Miscellaneous Notes Telephone Encounter - Roland Lim - 07/05/2021 1:53 PM CST Caller is: patient Reason for call: Chief Complaint Patient presents with ??? Med Refill Pertinent Information: Patient calls needing Nifedipine RX refill. Preferred Communication Method: [phone] (mobile) Patient pharmacy: [id number] [place], [place] - [facility] [address] [facility] [address] [place] [phone] [facility] [place], [place] - [address] [place] [address] [place] [address] Additional instructions: ATRIC CRITICAL CARE NURSE documented in this encounter Plan of Treatment Upcoming Encounters Date Type Specialty Care Team Description 05/22/2022 Appointment Laboratory Medicine Angélica Granger P.ASky [address] [place] [phone] 05/23/2022 Clinical Admitting/Central Communication Scheduling 05/27/2022 Comprehensive Visit Orthopedic Surgery Markus Sams M.D., Ph.D. [address] [place] [phone] 05/29/2022 Office Visit Otorhinolaryngology Dex Matta APRN, C.N.P., M.S.N. [address] [place] [phone] 05/29/2022 Office Visit Otorhinolaryngology Nadeem Maradiaga, dEmundo, M.S. [address] [place] [phone] 05/31/2022 Appointment Radiology Guilherme Matt, Edmundo MAGDALENO, M.S. [address] [place] [phone] 06/05/2022 Appointment Laboratory Medicine Angélica Granger P.A.-C. [address] [place] [phone] 06/19/2022 Appointment Laboratory Medicine Angélica Granger P.A.-C. [address] [place] [phone] 07/03/2022 Appointment Laboratory Medicine Angélica Granger P.A.-C. [address] [place] [phone] 07/17/2022 Appointment Laboratory Medicine Angélica Granger P.A.-C. [address] [place] [phone] 07/31/2022 Appointment Laboratory Medicine Angélica Granger P.A.-C. [address] [place] [phone] 08/14/2022 Appointment Laboratory Medicine Angélica Granger P.A.-C. [address] [place] [phone] 08/28/2022 Appointment Laboratory Medicine Angélica Granger P.A.-C. [address] [place] [phone] documented as of this encounter Visit Diagnoses Not on filedocumented in this encounter Additional Health Concerns Assessment Noted Time PHQ-9 Depression Total Score: 4 11/28/2020 10:17 AM CD T documented as of this encounter Care Teams Parts Sales Counterperson Relationship Specialty Start Date End Date Elsewhere, Pcp PCP - General Family Medicine 07/29/17 [facility] - Laboratory Medicine 04/12/20 [place] [phone] documented as of this encounter
--- OUTSIDE RECORDS SUMMARY | 2022-05-17 18:35 | XMS_ITS | Encounter Summary ---
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 [address] [place] [phone] 05/23/2022 Clinical Admitting/Central Communication Scheduling 05/27/2022 Comprehensive Visit Orthopedic Surgery Markus Sams M.D., Ph.D. [address] [place] [phone] 05/29/2022 Office Visit Otorhinolaryngology Dex Matta APRN, C.N.P., M.S.N. [address] [place] [phone] 05/29/2022 Office Visit Otorhinolaryngology Nadeem Maradiaga, P.A.-Arley., M.S. [address] [place] [phone] 05/31/2022 Appointment Radiology Guilherme Matt, RASTA, P.Murtaza.Marie., M.S. [address] [place] [phone] 06/05/2022 Appointment Laboratory Medicine Angélica Granger P.A.-C. [address] [place] [phone] 06/19/2022 Appointment Laboratory Medicine Angélica Granger P.A.-C. [address] [place] [phone] 07/03/2022 Appointment Laboratory Medicine Angélica Granger P.A.-C. [address] [place] [phone] 07/17/2022 Appointment Laboratory Medicine Angélica Granger P.A.-C. [address] [place] [phone] 07/31/2022 Appointment Laboratory Medicine Angélica Granger P.A.-C. [address] [place] [phone] 08/14/2022 Appointment Laboratory Medicine Angélica Granger P.A.-C. [address] [place] [phone] 08/28/2022 Appointment Laboratory Medicine Angélica Granger P.A.-C. [address] [place] [phone] documented as of this encounter Procedures Procedure Name Priority Date/Time Associated Comments Diagnosis GASTROENTEROLOGY IMAGE Routine 07/10/2021 11:00 R esults for this EXAM AM HAND TUBE BENDER procedure are i n the results section. documented in this encounter Results Colon, Entire colon Colonoscopy-Gastroenterology Image Exam (07/10/2021 11:00 AM HAND TUBE BENDER) Specimen (Source) Anatomical Collection Method Collection Time Re ceived Time Location / / Volume Laterality 07/10/2021 10:56 AM HAND TUBE BENDER Narrative [facility] - 07/10/2021 11:19 AM HAND TUBE BENDER This order has been created and auto-finalized to support the import of images acquired without order. The clini adelfo documentation to support these images can be found on the encounter ana t produced images. Provider Not In System IMG NON RAD IMAGING PROCEDUR ES Performing Organization Address City/State/ZIP Code Phon e Number [facility] NA documented in this encounter Visit Diagnoses Not on filedocumented in this encounter Additional Health Concerns Assessment Noted Time PHQ-9 Depression Total Score: 4 11/28/2020 10:17 AM CD T documented as of this encounter Care Teams Table Games Floor Supervisor Relationship Specialty Start Date End Date Elsewhere, Pcp PCP - General Family Medicine 07/29/17 [facility] - Laboratory Medicine 04/12/20 [place] [phone] documented as of this encounter
--- OUTSIDE RECORDS SUMMARY | 2022-05-17 18:35 | XMS_ITS | Encounter Summary ---
:1955 Author Organization [facility] Address [address] [place] [address] Care Team Providers Name Role Phone Elsewhere, Pcp Primary Care Provider Unavailable Reason for Referral MRI/CAT/PET Scan (Routine) - Closed Specialty Diagnoses / Procedures Referred By Contact Refer red To Contact Radiology Diagnoses Rhinosinusitis Chronic Toro Pena M.D. [facility] Procedures CT Sinuses without IV Contrast [address] [place] [phone] Referral ID Status Reason Start Date Expiration Date Visits Requ ested Visits Authorized [id number] Closed 06/26/2021 06/26/2022 1 1 HALMIC LENS INSPECTOR Reason for Visit MRI/CAT/PET Scan (Routine) - Closed Specialty Diagnoses / Procedures Referred By Contact Refer red To Contact Radiology Diagnoses Rhinosinusitis Chronic Toro Pena M.D. [facility] Procedures CT Sinuses without IV Contrast [address] [place] [phone] Referral ID Status Reason Start Date Expiration Date Visits Requ ested Visits Authorized [id number] Closed 06/26/2021 06/26/2022 1 1 Encounter Details Date Type Department Care Team Description 07/03/2021 Hospital Encounter Department of Toro Penaosi nusitis Chronic Radiology, Russel Galvan M.D. 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 documented as of this encounter Medications [...] FOR 34 DOSES ganciclovir 90 mg in D5W Infuse 90 [...] Take 1 tablet (100 20 tablet 0 08/202107/26/2021 (ADOXA) 100 mg tablet mg total) [...] before and finished Transplant Liver ([facility]), 2 hours prior to Medication Therapy Long report time Term Not Anticoagulant, Colitis 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 Term Not Anticoagulant UNABLE TO FIND by nasal 0 10/12/2021 (alternating) route 2 (two) times a day. Azelastine 1mg to Sinus Rinse twice daily. [facility] documented as of 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 [address] [place] [phone] 05/23/2022 Clinical Admitting/Central Communication Scheduling 05/27/2022 Comprehensive Visit Orthopedic Surgery Markus Sams M.D., Ph.D. [address] [place] [phone] 05/29/2022 Office Visit Otorhinolaryngology Dex Matta APRN, C.N.P., M.S.N. [address] [place] [phone] 05/29/2022 Office Visit Otorhinolaryngology Nadeem Maradiaga P.A.-C., M.S. [address] [place] [phone] 05/31/2022 Appointment Radiology Guilherme Matt MPAS, P.A.-C., M.S. [address] [place] [phone] 06/05/2022 Appointment Laboratory Medicine Angélica Granger P.A.-C. [address] [place] [phone] 06/19/2022 Appointment Laboratory Medicine Angélica Granger P.A.-C. [address] [place] [phone] 07/03/2022 Appointment Laboratory Medicine Angélica Granger P.A.-C. [address] [place] [phone] 07/17/2022 Appointment Laboratory Medicine Angélica Granger P.A.-C. [address] [place] [phone] 07/31/2022 Appointment Laboratory Medicine Angélica Granger P.A.-C. [address] [place] [phone] 08/14/2022 Appointment Laboratory Medicine Angélica Granger P.A.-C. [address] [place] [phone] 08/28/2022 Appointment Laboratory Medicine Emiliejeri Angélica Jennifer Stern. [address] [place] [phone] documented as of this encounter Procedures Procedure Name Priority Date/Time Associated Diagnosis Comme nts CT SINUSES RAD - Routine 07/03/2021 7:29 Rhinosinusitis Results f or WITHOUT IV (most inpatients AM OPHTHALMIC LENS INSPECTOR Chronic this proced ure CONTRAST and all are in the outpatients) results section. documented in this encounter Results CT Sinuses without IV Contrast (07/03/2021 7:29 AM OPHTHALMIC LENS INSPECTOR) Anatomical Region Laterality Modality Head, Neuroradiology RST LOS, N/A Computed T omography, Computed Neuroradiology ARZ LOS, Neuroradiology T omography FLA LOS Specimen (Source) Anatomical Collection Method Collection Time Re ceived Time Location / / Volume Laterality 07/03/2021 8:43 AM OPHTHALMIC LENS INSPECTOR Impressions 07/03/2021 8:48 AM OPHTHALMIC LENS INSPECTOR Progressive paranasal sinus inflammatory changes particularly within the right maxillary antrum and ethmoid a ir cells bilaterally with near complete opacification since 10/12/2020. Narrative 07/03/2021 8:48 AM OPHTHALMIC LENS INSPECTOR EXAM: CT SINUSES WITHOUT IV CONTRAST [...] documented as of this encounter Care Teams Research Engineer Marine Equipment Relationship Specialty Start Date End Date Elsewhere, Pcp PCP - General Family Medicine 07/29/17 [facility] - Laboratory Medicine 04/12/[address] [phone] documented as of this encounter
--- OUTSIDE RECORDS SUMMARY | 2022-05-17 18:35 | XMS_ITS | Encounter Summary ---
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 [address] [place] [phone] 05/23/2022 Clinical Admitting/Central Communication Scheduling 05/27/2022 Comprehensive Visit Orthopedic Surgery Markus Sams M.D., Ph.D. [address] [place] [phone] 05/29/2022 Office Visit Otorhinolaryngology Dex Matta APRN, C.N.P., M.S.N. [address] [place] [phone] 05/29/2022 Office Visit Otorhinolaryngology Nadeem Maradiaga, P.Murtaza.-Arley., M.S. [address] [place] [address] [phone] 05/31/2022 Appointment Radiology Guilherme Matt MPAS, Jennifer., M.S. [address] [place] [address] [phone] 06/05/2022 Appointment Laboratory Medicine Angélica Granger P.A.-C. [address] [place] [address] [phone] 06/19/2022 Appointment Laboratory Medicine Angélica Granger P.A.-C. [address] [place] [phone] 07/03/2022 Appointment Laboratory Medicine Angélica Granger P.A.-C. [address] [place] [phone] 07/17/2022 Appointment Laboratory Medicine Angélica Granger P.A.-C. [address] [place] [phone] 07/31/2022 Appointment Laboratory Medicine Angélica Granger P.A.-C. [address] [place] [phone] 08/14/2022 Appointment Laboratory Medicine Angélica Granger P.A.-C. [address] [place] [phone] 08/28/2022 Appointment Laboratory Medicine Angélica rGanger P.A.-C. [address] [place] [phone] documented as of this encounter Visit Diagnoses Diagnosis Rhinosinusitis Chronic - Primary documented in this encounter Additional Health Concerns Assessment Noted Time PHQ-9 Depression Total Score: 4 11/28/2020 10:17 AM CD T documented as of this encounter Care Teams Galley Worker Relationship Specialty Start Date End Date Elsewhere, Pcp PCP - General Family Medicine 07/29/17 [facility] - Laboratory Medicine 04/12/[address] [address] documented as of this encounter
--- OUTSIDE RECORDS SUMMARY | 2022-05-17 18:35 | XMS_ITS | Encounter Summary ---
:1955 Author Organization [facility] Address [address] [place] [address] Care Team Providers Name Role Phone Elsewhere, Pcp Primary Care Provider Unavailable Reason for Visit Transplant (Routine) - Closed Specialty Diagnoses / Procedures Referred By Contact Refer red To Contact Transplant Surgery / Diagnoses Transplant Liver (HCC) Medication Therapy Service Planner Not Anticoagulant Colitis Cytomegalovirus (HCC) [facility] M.S. [address] [place] [phone] Referral ID Status Reason Start Date Expiration Date Visits Requ ested Visits Authorized [id number] Closed 06/14/2021 06/14/2022 1 1 Encounter Details Date Type Department Care Team Description 07/12/2021 Office Visit Trung Swenson Cytomegalovirus (HCC) (Primary Dx); [facility], P.A.-C., Transplant Live r ([facility]); Transplantation and M.S. 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 - 07/12/2021 11:00 AM CST DEMOGRAPHIC INFORMATION Patient Name: Bruce Singh Clinic Number: [id number] Age: 65 y.o. Birthdate: 1955 Sex: male Service Date/Time: 07/12/21 8:56 AM MATERIALS ASSOCIATE TRANSPLANT INFECTIOUS DISEASES SERVICE - Progress Note SUBJECTIVE REFERRAL SOURCE Trung Plasencia P.A.-C., M.S. 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 HISTORY OF PRESENT ILLNESS Mr. Singh is a 65 year old gentleman from [place], [place] whom I know from prior clinic [...] also going to be seeing an outside Human Resources Manager Manufacturing in the [facility] right after the first of the [...] Singh to receive IVganciclovir at home through [facility] beginning June 15, 2021. A [...] said he had some labs drawn at [facility] dialysis after talking with Dr. Norwood his kaiawhina. He said some labs were obtained but I donot see any record of any labs on July 06. Mr. Singh kindly called [facility] dialysis to find out what was actually [...] other diagnostic studies which are available in [facility] respectively. Lab Results Component Value Date HGB [...] give after dialysis. Mr. Singh will contact [facility] to order more medication. 2. Weekly CBC/differential, Qn CMV PCR while on IV ganciclovir. [facility]. 3. Tunneled PICC site care. We will [...] cultures ordered for July 16, 2021 at [facility]. PATIENT EDUCATION Ready to learn, no apparent [...] CMV immunostain is negative. Patient notified in [facility] Patient rodolfo. Will plan to continue IV ganciclovir for a few more weeks given the ongoing mild active colitis and until Qn CMV PCR is undetected x 2 Trung Plasencia P.A.-C., M.S. RIALS ASSOCIATE documented in 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 [address] [place] [phone] 05/23/2022 Clinical Admitting/Central Communication Scheduling 05/27/2022 Comprehensive Visit Orthopedic Surgery Markus Sams M.D., Ph.D. [address] [place] [phone] 05/29/2022 Office Visit Otorhinolaryngology Dex Matta, RAMONA, C.N.P., M.S.N. [address] [place] [phone] 05/29/2022 Office Visit Otorhinolaryngology Nadeem Maradiaga P.A.-C., M.S. [address] [place] [address] [phone] 05/31/2022 Appointment Radiology Guilherme Matt, Edmundo MAGDALENO, M.S. [address] [place] [phone] 06/05/2022 Appointment Laboratory Medicine Angélica Granger P.A.-C. [address] [place] [phone] 06/19/2022 Appointment Laboratory Medicine Angélica Granger P.A.-C. [address] [place] [phone] 07/03/2022 Appointment Laboratory Medicine Angélica Granger P.A.-C. [address] [place] [phone] 07/17/2022 Appointment Laboratory Medicine Angélica Granger P.A.-C. [address] [place] [phone] 07/31/2022 Appointment Laboratory Medicine Angélica Granger P.A.-C. [address] [place] [phone] 08/14/2022 Appointment Laboratory Medicine Angélica Granger P.A.-C. [address] [place] [phone] 08/28/2022 Appointment Laboratory Medicine Angélica Granger P.A.-C. [address] [place] [phone] documented as of this encounter Results Bacteria / Rimma Culture, Blood #2 (07/16/2021 8:22 AM MATERIALS ASSOCIATE) [facility] Method Time Signature Bacteria/Negar No growth 07/21/2021 [facility] da Culture, after 5 9:02 AM MATERIALS ASSOCIATE Blood day/s of incubation. Specimen (Source) Anatomical Collection Method Collection Time Re ceived Time Location / / Volume Laterality Blood (Blood, 07/16/2021 8:22 07/16/2021 8:27 Peripheral Draw) AM MATERIALS ASSOCIATE AM MATERIALS ASSOCIATE Comment: Specimen Source Site: Blood Trung Plasencia P.A.-C. M.S. LAB MICROBIOLOGY - GENERAL ORDERABLES Performing Organization Address [facility] Phon e Number [address] [address] [place] [address] Bacteria / Rimma Culture, Blood #1 (07/16/2021 8:17 AM MATERIALS ASSOCIATE) [facility] Method Time Signature Bacteria/Negar No growth 07/21/2021 [facility] da Culture, after 5 9:02 AM MATERIALS ASSOCIATE Blood day/s of incubation. Specimen (Source) Anatomical Collection Method Collection Time Re ceived Time Location / / Volume Laterality Blood (Blood, 07/16/2021 8:17 07/16/2021 8:26 Peripheral Draw) AM MATERIALS ASSOCIATE AM MATERIALS ASSOCIATE Comment: Specimen Source Site: Blood Trung Plasencia P.A.-C. M.S. LAB MICROBIOLOGY - GENERAL ORDERABLES Performing Organization Address [facility] Phon e Number [address] [address] [place] [address] (ABNORMAL) CMV DNA Detect / Quant, Plasma (07/16/2021 8:16 AM MATERIALS ASSOCIATE) [facility] Method Time Signature CMV DNA <35 (A) Undetected 07/17/2021 [facility] Detect/Quant, IU/mL 4:19 PM MATERIALS ASSOCIATE P Comment: Result in log IU/mL is <1.54. CMV DNA is detected, but level present i s <35 IU/mL (<1.54 log IU/mL). This assay cannot accurately quantify CMV DNA below this level. ----ADDITIONAL INFORMATION---- The quantification range of this assay i s 35 to 10,000,000 IU/mL (1.54 log to 7.00 log IU/mL). Testing was performed u sing the tika CMV test ([employer] with the tika [employer] System. Specimen Anatomical Collection Method Collection Time Receive d Time (Source) Location / / Volume Laterality Blood (Blood, 07/16/2021 8:16 AM 07/17/19 7:42 Venous) MATERIALS ASSOCIATE AM MATERIALS ASSOCIATE Trung Plasencia P.A.-C. MDemetriusS. LAB MICROBIOLOGY - BLOOD O RDERABLES Performing Organization Address City/State/ZIP Code Phon e Number [facility] [address] [place], [place] [address] [facility] [place] [place] [address] Laboratory Medicine and Pathology [address] [place] (ABNORMAL) CBC with Differential, Blood (07/16/2021 8:16 AM MATERIALS ASSOCIATE) [facility] gist Method Time Signature Hemoglobin 10.4 (L) 13.2 - 07/16/2021 [facility] 16.6 g/dL 11:16 AM MATERIALS ASSOCIATE Hematocrit 32.0 (L) 38.3 - 07/16/2021 [facility] 48.6 % 11:16 AM MATERIALS ASSOCIATE Erythrocytes 3.34 (L) 4.35 - 07/16/2021 [facility] 5.65 11:16 AM MATERIALS ASSOCIATE x10(12)/L MCV 95.8 78.2 - 07/16/2021 [facility] 97.9 fL 11:16 AM MATERIALS ASSOCIATE RBC Distrib Width 13.3 11.8 - 07/16/2021 [facility] 14.5 % 11:16 AM MATERIALS ASSOCIATE Platelet Count 266 135 - 317 07/16/2021 [facility] x10(9)/L 11:16 AM MATERIALS ASSOCIATE Leukocytes 5.6 3.4 - 9.6 07/16/2021 [facility] x10(9)/L 11:16 AM MATERIALS ASSOCIATE Neutrophils 4.10 1.56 - 07/16/2021 [facility] 6.45 11:16 AM MATERIALS ASSOCIATE x10(9)/L Lymphocytes 0.87 (L) 0.95 - 07/16/2021 [facility] 3.07 11:16 AM MATERIALS ASSOCIATE x10(9)/L Monocytes 0.53 0.26 - 07/16/2021 [facility] 0.81 11:16 AM MATERIALS ASSOCIATE x10(9)/L Eosinophils 0.13 0.03 - 07/16/2021 [facility] 0.48 11:16 AM MATERIALS ASSOCIATE x10(9)/L Basophils 0.01 0.01 - 07/16/2021 CNFL 0.08 11:16 AM MATERIALS ASSOCIATE x10(9)/L Specimen Anatomical Collection Method Collection Time Receive d Time (Source) Location / / Volume Laterality Blood (Blood, 07/16/2021 8:16 AM 07/16/19 8:26 Venous) MATERIALS ASSOCIATE AM MATERIALS ASSOCIATE Trung Plasencia P.A.-C., M.S. LAB BLOOD ADD-ON Performing Organization Address City/State/ZIP Code Phon e Number [facility] [address] [place] [address] [place] [address] [place] [address] documented in this encounter Visit Diagnoses Diagnosis Colitis Cytomegalovirus (HCC) - Primary Transplant Liver (HCC) Medication Therapy Intermediate Not Anticoa gulant Bronchiolitis Immunodeficiency Due To Drugs (HCC) Chronic Kidney Disease Stage 5 GFR Less Than 15 Dialysis Dependent (HCC) documented in this encounter Additional Health Concerns Assessment Noted Time PHQ-9 Depression Total Score: 4 11/28/2020 10:17 AM CD T documented as of this encounter Care Teams Sql Architect Relationship Specialty Start Date End Date Elsewhere, Pcp PCP - General Family Medicine 07/29/17 [facility] - Laboratory Medicine 04/12/20 [place] [address] documented as of this encounter
--- OUTSIDE RECORDS SUMMARY | 2022-05-17 18:35 | XMS_ITS | Encounter Summary ---
:1955 Author Organization [facility] Address [address] [place] [address] Care Team Providers Name Role Phone Elsewhere, Pcp Primary Care Provider Unavailable Reason for Visit Reason Comments Med Refill Encounter Details Date Type Department Care Team Description 07/15/2021 Refill [facility] for Yusuf Gutierrez, Med Refill Transplantation and Clinical M.D ., M.P.H. 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 [address] [place] [phone] 05/23/2022 Clinical Admitting/Central Communication Scheduling 05/27/2022 Comprehensive Visit Orthopedic Surgery Markus Sams M.D., Ph.D. [address] [place] [address] [phone] 05/29/2022 Office Visit Otorhinolaryngology Dex Matta, RAMONA, C.N.P., M.S.N. [address] [place] [phone] 05/29/2022 Office Visit Otorhinolaryngology Nadeem Maradiaga, P.Murtaza.-Arley., M.S. [address] [place] [phone] 05/31/2022 Appointment Radiology Guilherme Matt MPAS, PMaryanne., M.S. [address] [place] [address] [phone] 06/05/2022 Appointment Laboratory Medicine Angélica Granger P.A.-C. [address] [place] [address] [phone] 06/19/2022 Appointment Laboratory Medicine Angélica Granger P.A.-C. [address] [place] [phone] 07/03/2022 Appointment Laboratory Medicine Angélica Granger P.A.-C. [address] [place] [phone] 07/17/2022 Appointment Laboratory Medicine Angélica Granger P.A.-C. [address] [place] [phone] 07/31/2022 Appointment Laboratory Medicine Angélica Granger P.A.-C. [address] [place] [phone] 08/14/2022 Appointment Laboratory Medicine Angélica Granger P.A.-C. [address] [place] [phone] 08/28/2022 Appointment Laboratory Medicine Angélica Granger P.A.-C. [address] [place] [phone] documented as of this encounter Visit Diagnoses Diagnosis Transplant Liver (HCC) Medication Therapy Shelter Not Anticoa gulant documented in this encounter Additional Health Concerns Assessment Noted Time PHQ-9 Depression Total Score: 4 11/28/2020 10:17 AM CD T documented as of this encounter Care Teams Customer Service Dispatcher Relationship Specialty Start Date End Date Elsewhere, Pcp PCP - General Family Medicine 07/29/17 [facility] - Laboratory Medicine 04/12/[address] [address] documented as of this encounter
--- OUTSIDE RECORDS SUMMARY | 2022-05-17 18:35 | XMS_ITS | Encounter Summary ---
:1955 Author Organization [facility] Address [address] [place] [address] Care Team Providers Name Role Phone Elsewhere, Pcp Primary Care Provider Unavailable Reason for Referral Outpatient (Routine) - Closed Specialty Diagnoses / Procedures Referred By Contact Refer red To Contact Otorhinolaryngology Toro Pena M.D . [address] [phone] Referral ID Status Reason Start Date Expiration Date Visits Requ ested Visits Authorized [id number] Closed 07/03/2021 07/03/2022 1 1 Scheduling Instructions 1 mo post-op utpatient (Routine) - Closed Specialty Diagnoses / Procedures Referred By Contact Refer red To Contact Otorhinolaryngology Toro Pena M.D . [address] [phone] Referral ID Status Reason Start Date Expiration Date Visits Requ ested Visits Authorized [id number] Closed 07/03/2021 07/03/2022 1 1 Scheduling Instructions 1 wk post-op IR DEPARTMENT MANAGER Reason for Visit Outpatient (Routine) - Closed Specialty Diagnoses / Procedures Referred By Contact Refer red To Contact Otorhinolaryngology Toro Pena M.D . [address] [phone] Referral ID Status Reason Start Date Expiration Date Visits Requ ested Visits Authorized [id number] Closed 06/26/2021 06/26/2022 1 1 Encounter Details Date Type Department Care Team Description 07/03/2021 Office Visit Department of Toro Pena Rhinosinusiti s Chronic (Primary Dx); Otorhinolaryngology in Sada Galvan Congestion Nasal; [place], [place] [address] [facility] Drip Post Nasal; [address] [place], [place] Obstruction Nasal; [place] [phone] Preoperative Exam; [phone] Chronic Kidney Disease Stage 4 Glomerular Filtration [...] DEPARTMENT MANAGER documented as of this encounter Progress Toro [...] status. Findings: Septum midline. No pus/purulence/polyps bilaterally. [place] Endoscopic Scoring System RIGHT LEFT POLYPS (0, [...] limitations are listed earlier. Toro Pena MD [facility] Department of Otorhinolaryngology - Head & Neck Surgery IR DEPARTMENT MANAGER documented in 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 [address] [place] [phone] 05/23/2022 Clinical Admitting/Central Communication Scheduling 05/27/2022 Comprehensive Visit Orthopedic Surgery Markus Sams M.D., Ph.D. [address] [place] [phone] 05/29/2022 Office Visit Otorhinolaryngology Dex Matta APRN, C.N.P., M.S.N. [address] [place] [phone] 05/29/2022 Office Visit Otorhinolaryngology Nadeem Maradiaga, Jennifer., M.S. [address] [place] [phone] 05/31/2022 Appointment Radiology Alejandro Matt MPAS, Jennifer., M.S. [address] [place] [phone] 06/05/2022 Appointment Laboratory Medicine Angélica Granger P.A.-C. [address] [place] [address] [phone] 06/19/2022 Appointment Laboratory Medicine Angélica Granger P.A.-C. [address] [place] [address] [phone] 07/03/2022 Appointment Laboratory Medicine Angélica Granger P.A.-C. [address] [place] [phone] 07/17/2022 Appointment Laboratory Medicine Angélica Granger P.A.-C. [address] [place] [phone] 07/31/2022 Appointment Laboratory Medicine Angélica Granger P.A.-C. [address] [place] [phone] 08/14/2022 Appointment Laboratory Medicine Angélica Granger P.A.-C. [address] [place] [phone] 08/28/2022 Appointment Laboratory Medicine Angélica Granger P.A.-C. [address] [place] [phone] Scheduled Referrals Name Type Priority Associated Order [...] as of this encounter Care Teams Chief Projectionist Relationship Specialty Start Date End Date Elsewhere, Pcp PCP - General Family Medicine 07/29/17 [facility] - Laboratory Medicine 04/12/[address] [address] documented as of this encounter
--- OUTSIDE RECORDS SUMMARY | 2022-05-17 18:35 | XMS_ITS | Encounter Summary ---
:1955 Author Organization [facility] Address [address] [place] [address] Care Team Providers Name Role Phone Elsewhere, Pcp Primary Care Provider Unavailable Reason for Visit Reason Comments Treatment Outpatient (Routine) - Authorized Specialty Diagnoses / Procedures Referred By Contact Refer red To Contact Diagnoses Colitis Cytomegalovirus (HCC) Transplant Liver (HCC) Otoniel Linares M.D. 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 [address] [place] [phone] 05/23/2022 Clinical Admitting/Central Communication Scheduling 05/27/2022 Comprehensive Visit Orthopedic Surgery Markus Sams M.D., Ph.D. [address] [place] [address] [phone] 05/29/2022 Office Visit Otorhinolaryngology Dex Matta APRN, C.N.P., M.S.N. [address] [place] [address] [phone] 05/29/2022 Office Visit Otorhinolaryngology Nadeem Maradiaga, Jennifer., M.S. [address] [place] [phone] 05/31/2022 Appointment Radiology Guilherme Matt MPAS, P.A.-C., M.S. [address] [place] [phone] 06/05/2022 Appointment Laboratory Medicine Angélica Granger P.A.-C. [address] [place] [phone] 06/19/2022 Appointment Laboratory Medicine Angélica Granger P.A.-C. [address] [place] [phone] 07/03/2022 Appointment Laboratory Medicine Angélica Granger P.A.-C. [address] [place] [phone] 07/17/2022 Appointment Laboratory Medicine Angélica Granger P.A.-C. [address] [place] [phone] 07/31/2022 Appointment Laboratory Medicine Angélica Granger P.A.-C. [address] [place] [phone] 08/14/2022 Appointment Laboratory Medicine Angélica Granger P.A.-C. [address] [place] [phone] 08/28/2022 Appointment Laboratory Medicine Angélica Granger P.A.-C. 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 documented in this encounter Additional Health Concerns Assessment Noted Time PHQ-9 Depression Total Score: 4 11/28/2020 10:17 AM CD T documented as of this encounter Care Teams Beef Pluck Trimmer Relationship Specialty Start Date End Date Elsewhere, Pcp PCP - General Family Medicine 07/29/17 [facility] - Laboratory Medicine 04/12/[address] [address] documented as of this encounter
--- OUTSIDE RECORDS SUMMARY | 2022-05-17 18:35 | XMS_ITS | Encounter Summary ---
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 [address] [place] [phone] 05/23/2022 Clinical Admitting/Central Communication Scheduling 05/27/2022 Comprehensive Visit Orthopedic Surgery Markus Sams M.D., Ph.D. [address] [place] [phone] 05/29/2022 Office Visit Otorhinolaryngology Dex Matta APRN, C.N.P., M.S.N. [address] [place] [phone] 05/29/2022 Office Visit Otorhinolaryngology Nadeem Maradiaga, PMaryanne., M.S. [address] [place] [phone] 05/31/2022 Appointment Radiology Guilherme Matt MPAS, Jennifer., M.S. [address] [place] [phone] 06/05/2022 Appointment Laboratory Medicine Angélica Grnager P.A.-C. [address] [place] [phone] 06/19/2022 Appointment Laboratory Medicine Angélica Granger P.A.-C. [address] [place] [phone] 07/03/2022 Appointment Laboratory Medicine Angélica Granger P.A.-C. [address] [place] [phone] 07/17/2022 Appointment Laboratory Medicine Angélica Granger P.A.-C. [address] [place] [phone] 07/31/2022 Appointment Laboratory Medicine Angélica Granger P.A.-C. [address] [place] [phone] 08/14/2022 Appointment Laboratory Medicine Angélica Granger P.A.-C. [address] [place] [phone] 08/28/2022 Appointment Laboratory Medicine Angélica Granger P.A.-C. [address] [place] [phone] documented as of this encounter Procedures Procedure Name Priority Date/Time Associated Comments Diagnosis OTORHINOLARYNGOLOGY IMAGE Routine 07/03/2021 2:53 Results for this EXAM PM GEOTHERMAL POWERPLANT MECHANIC HELPER procedure are i n the results section. documented in this encounter Results NOSE-Otorhinolaryngology Image Exam (07/03/2021 2:53 PM GEOTHERMAL POWERPLANT MECHANIC HELPER) Specimen (Source) Anatomical Collection Method Collection Time Re ceived Time Location / / Volume Laterality 07/03/2021 3:02 PM GEOTHERMAL POWERPLANT MECHANIC HELPER Narrative IIMS - 07/03/2021 2:53 PM GEOTHERMAL POWERPLANT MECHANIC HELPER This order has been created and auto-finalized [...] as of this encounter Care Teams Automotive Glass Installer Relationship Specialty Start Date End Date Elsewhere, Pcp PCP - General Family Medicine 07/29/17 [facility] - Laboratory Medicine 04/12/20 [place] [phone] documented as of this encounter
--- OUTSIDE RECORDS SUMMARY | 2022-05-17 18:35 | XMS_ITS | Encounter Summary ---
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 - 07/03/2021 4:03 PM CST Orders have been placed. Thanks! -Damaso IC WORKER SUPERVISOR Telephone Encounter - Miryam Bailey - 07/03/2021 3:32 PM CST BHAVNA has denied triage for this patient he needs to be cleared for surgery with transplant. Please place new order. Thank you. (surgery is scheduled for 08/21/[address] Pena) IC WORKER SUPERVISOR documented in 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 [address] [place] [phone] 05/23/2022 Clinical Admitting/Central Communication Scheduling 05/27/2022 Comprehensive Visit Orthopedic Surgery Markus Sams M.D., Ph.D. [address] [place] [address] 05/29/2022 Office Visit Otorhinolaryngology Dex Matta APRN, C.N.P., M.S.N. [address] [place] [address] [phone] 05/29/2022 Office Visit Otorhinolaryngology Nadeem Maradiaga P.A.-C., M.S. [address] [place] [phone] 05/31/2022 Appointment Radiology Guilherme Matt MPAS, P.A.-C., M.S. [address] [place] [phone] 06/05/2022 Appointment Laboratory Medicine Angélica Granger P.A.-C. [address] [place] [phone] 06/19/2022 Appointment Laboratory Medicine Angélica Granger P.A.-C. [address] [place] [phone] 07/03/2022 Appointment Laboratory Medicine Angélica Granger P.A.-C. [address] [place] [phone] 07/17/2022 Appointment Laboratory Medicine Angélica Granger P.A.-C. [address] [place] [phone] 07/31/2022 Appointment Laboratory Medicine Angélica Granger P.A.-C. [address] [place] [phone] 08/14/2022 Appointment Laboratory Medicine Angélica Granger P.A.-C. [address] [place] [phone] 08/28/2022 Appointment Laboratory Medicine Angélica Granger P.A.-C. [address] [place] [address] documented as of this encounter Visit Diagnoses Not on filedocumented in this encounter Additional Health Concerns Assessment Noted Time PHQ-9 Depression Total Score: 4 11/28/2020 10:17 AM CD T documented as of this encounter Care Teams Director Gift Relationship Specialty Start Date End Date Elsewhere, Pcp PCP - General Family Medicine 07/29/17 [facility] - Laboratory Medicine 04/12/[address] [address] documented as of this encounter
[2022-05-17 18:36] LABS: C Reactive Protein* 3.6 mg/dL (0.5-1.0)
--- OUTSIDE RECORDS SUMMARY | 2022-05-17 18:36 | XMS_ITS | Encounter Summary ---
:1955 Author Organization [facility] Address [address] [place] [address] Care Team Providers Name Role Phone Elsewhere, Pcp Primary Care Provider Unavailable Encounter Details Date Type Department Care Team Description 06/21/2021 Orders Only Division of Nephrology Dario Shafer F ailure Renal End and Hypertension in M.D., Ph.D. Stage (HCC) (Primary [place], [place] [address] [facility]) [address] [place] [phone] Social History Tobacco Use Types Packs/Day Years [...] at Date Recorded Male 05/16/2020 4:27 PM BRIGADIER documented as of 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 [address] [place] [phone] 05/23/2022 Clinical Admitting/Central Communication Scheduling 05/27/2022 Comprehensive Visit Orthopedic Surgery Markus Sams M.D., Ph.D. [address] [place] [phone] 05/29/2022 Office Visit Otorhinolaryngology Dex Matta APRN, C.N.P., M.S.N. [address] [place] [phone] 05/29/2022 Office Visit Otorhinolaryngology Nadeem Maradiaga, P.A.-Arley., M.S. [address] [place] [address] [phone] 05/31/2022 Appointment Radiology Guilherme Matt MPAS, PMaryanne., M.S. [address] [place] [address] [phone] 06/05/2022 Appointment Laboratory Medicine Angélica Granger P.A.-C. [address] [place] [address] [phone] 06/19/2022 Appointment Laboratory Medicine Angélica Granger P.A.-C. [address] [place] [phone] 07/03/2022 Appointment Laboratory Medicine Angélica Granger P.A.-C. [address] [place] [phone] 07/17/2022 Appointment Laboratory Medicine Angélica Granger P.A.-C. [address] [place] [phone] 07/31/2022 Appointment Laboratory Medicine Angélica Granger P.A.-C. [address] [place] [phone] 08/14/2022 Appointment Laboratory Medicine Angélica Granger P.A.-C. [address] [place] [phone] 08/28/2022 Appointment Laboratory Medicine Angélica Granger P.A.-C. [address] [place] [phone] documented as of this encounter Results SARS Coronavirus-2 RNA, V Asymptomatic (07/21/2021 9:21 AM BRIGADIER) [facility] Method Time Signature SARS-CoV-2 Swab, 07/21/2021 MKTO Specimen Nasopharynx 9:41 PM BRIGADIER Source SARS CoV-2 Undetected Undetected 07/21/2021 MKTO RNA, TMA 9:41 PM BRIGADIER Comment: SARS-CoV-2 RNA absent. This result does not rule out COVID-19 in the patient, as the sensitivity of the test depends o n the timing of the specimen collection and the quality of the specim en. Result should be correlated with patient's history and clinical presentat ion. ----ADDITIONAL INFORMATION---- This molecular amplification test was pe rformed using the Aptima SARS-CoV-2 assay ([employer] on the Eland Sys tem under emergency use authorization (EUA) by the U.S. Food and Drug Administ ration. Fact sheets for this EUA assay can be fo und at the following links: For Healthcare Providers: https://www.Searchspace a.gov/media/867208/download For Patients: https://www.fda.gov/media/ 244614/download Specimen Anatomical Collection Method Collection Time Receive d Time (Source) Location / / Volume Laterality Varies 07/21/2021 9:21 AM 4:38 (Nasopharynx) BRIGADIER PM BRIGADIER Dario Shafer M.D., Ph.D. 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
--- OUTSIDE RECORDS SUMMARY | 2022-05-17 18:36 | XMS_ITS | Encounter Summary ---
:1955 Author Organization [facility] Address [address] [place] [address] Care Team Providers Name Role Phone Elsewhere, Pcp Primary Care Provider Unavailable Encounter Details Date Type Department Care Team Description 06/14/2021 Documentation Division of Nephrology and Suhail Norwood Hypertension in [place], ., D.O. 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 HIRE STYLUS GRINDER documented in 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 [address] [place] [phone] 05/23/2022 Clinical Admitting/Central Communication Scheduling 05/27/2022 Comprehensive Visit Orthopedic Surgery Markus Sams M.D., Ph.D. [address] [place] [phone] 05/29/2022 Office Visit Otorhinolaryngology Dex Matta APRN CDemetriusNFabrice., M.S.N. [address] [place] [phone] 05/29/2022 Office Visit Otorhinolaryngology Nadeem Maradiaga, Edmundo, M.S. [address] [place] [phone] 05/31/2022 Appointment Radiology Guilherme Matt, RASTA, Edmundo, M.S. [address] [place] [phone] 06/05/2022 Appointment Laboratory Medicine Angélica Granger P.A.-C. [address] [place] [phone] 06/19/2022 Appointment Laboratory Medicine Angélica Granger P.A.-C. [address] [place] [phone] 07/03/2022 Appointment Laboratory Medicine Angélica Granger P.A.-C. [address] [place] [phone] 07/17/2022 Appointment Laboratory Medicine Angélica Granger P.A.-C. [address] [place] [phone] 07/31/2022 Appointment Laboratory Medicine Angélica Granger P.A.-C. [address] [place] [phone] 08/14/2022 Appointment Laboratory Medicine Angélica Granger P.A.-C. [address] [place] [phone] 08/28/2022 Appointment Laboratory Medicine Angélica Granger P.A.-C. [address] [place] [phone] documented as of this encounter Visit Diagnoses Not on filedocumented in this encounter Additional Health Concerns Assessment Noted Time PHQ-9 Depression Total Score: 4 11/28/2020 10:17 AM CD T documented as of this encounter Care Teams Wet End Helper Relationship Specialty Start Date End Date Elsewhere, Pcp PCP - General Family Medicine 07/29/17 [facility] - Laboratory Medicine 04/12/[address] [address] documented as of this encounter
--- OUTSIDE RECORDS SUMMARY | 2022-05-17 18:36 | XMS_ITS | Encounter Summary ---
:1955 Author Organization [facility] Address [address] [place] [address] Care Team Providers Name Role Phone Elsewhere, Pcp Primary Care Provider Unavailable Reason for Visit Reason Comments phone call Encounter Details Date Type Department Care Team Description 06/18/2021 Clinical Communication Division of Nephrology Rudy cortes, phone call and Hypertension in [place], [place] C.N.P., D.N.P. 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 They need an order as to what is needed and dosage. Current dose of Aranesp is 40 mcg every 2 weeks. Does he also need an iron infusion? Call Alena [phone] with any questions. I think you saw this patient last in [place]. Thank you, Silvia CE PILOT documented in this encounter Plan of Treatment Upcoming Encounters Date Type Specialty Care Team Description 05/22/2022 Appointment Laboratory Medicine Angélica Granger P.A.-CDemetrius [address] [place] [phone] 05/23/2022 Clinical Admitting/Central Communication Scheduling 05/27/2022 Comprehensive Visit Orthopedic Surgery Markus Sams M.D., Ph.D. [address] [place] [phone] 05/29/2022 Office Visit Otorhinolaryngology Dex Matta APRN, C.N.P., M.S.N. [address] [place] [phone] 05/29/2022 Office Visit Otorhinolaryngology Nadeem Maradiaga P.A.-C., M.S. [address] [place] [phone] 05/31/2022 Appointment Radiology Guilherme Matt MPAS, P.A.-C., M.S. [address] [place] [address] [phone] 06/05/2022 Appointment Laboratory Medicine Angélica Granger P.A.-C. [address] [place] [phone] 06/19/2022 Appointment Laboratory Medicine Angélica Granger P.A.-C. [address] [place] [phone] 07/03/2022 Appointment Laboratory Medicine Angélica Granger P.A.-C. [address] [place] [phone] 07/17/2022 Appointment Laboratory Medicine Angélica Granger P.A.-C. [address] [place] [phone] 07/31/2022 Appointment Laboratory Medicine Angélica Granger P.A.-C. [address] [place] [phone] 08/14/2022 Appointment Laboratory Medicine Angélica Granger P.A.-C. [address] [place] [phone] 08/28/2022 Appointment Laboratory Medicine Angélica Granger P.A.-C. [address] [place] [phone] documented as of this encounter Visit Diagnoses Not on filedocumented in this encounter Additional Health Concerns Assessment Noted Time PHQ-9 Depression Total Score: 4 11/28/2020 10:17 AM CD T documented as of this encounter Care Teams Mapping Pilot Relationship Specialty Start Date End Date Elsewhere, Pcp PCP - General Family Medicine 07/29/17 [facility] - Laboratory Medicine 04/12/[address] [address] documented as of this encounter
--- OUTSIDE RECORDS SUMMARY | 2022-05-17 18:36 | XMS_ITS | Encounter Summary ---
:1955 Author Organization [facility] Address [address] [place] [address] Care Team Providers Name Role Phone Elsewhere, Pcp Primary Care Provider Unavailable Reason for Referral Outpatient (Routine) - Authorized Specialty Diagnoses / Procedures Referred By Contact Refer red To Contact Diagnoses Colitis Cytomegalovirus (HCC) Transplant Liver (HCC) Karyn Linares M.D. [facility] Procedures Perform central product line manager: Site care, Flush port(s) [address] [place] [phone] Referral ID Status Reason Start Date Expiration Date Visits V isits Requested Authorized [id number] Authorized 06/26/2021 06/26/2022 8 8 PHONE SERVICES SALES REPRESENTATIVE Reason for Visit Reason Comments Care Coordination PICC line dressing change Encounter Details Date Type Department Care Team Description 06/25/2021 [facility] Center for Yolie Freeman (PICC line ciarra ssing Transplantation and R.N. 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 - 06/26/2021 3:35 PM TELEPHONE SERVICES SALES REPRESENTATIVE Addended by: KARYN LINARES on: 06/26/2021 03:35 PM Modules accepted: Orders PHONE SERVICES SALES REPRESENTATIVE Addendum Note - Arabella Ayers R.N., C.C.T.C. - 06/26/2021 2:57 PM TELEPHONE SERVICES SALES REPRESENTATIVE Addended by: ARABELLA AYERS on: 06/26/2021 02:57 PM Modules accepted: Orders PHONE SERVICES SALES REPRESENTATIVE Telephone Encounter - Arabella Ayers R.N., Dilan - 06/26/2021 2:52 PM TELEPHONE SERVICES SALES REPRESENTATIVE SUBJECTIVE PICC site care CHIEF COMPLAINT / REASON FOR CALL Care Coordination (PICC line dressing change) Information Discussed Returned call to Darryl at [facility]. He reports that Mr. Singh was taught how to give his ganciclovir infusions. Since they are not administering the medications, they are unable to provide site care. HisPICC line was placed on 06/14/21. He has his labs drawn at [facility]. Orders placed for PICC line site care at [facility]. PLAN Disposition/Recommendation: Orders will need to be placed for PICC site care Information/Education: not applicable Caller agreeable to plan of care: yes The following references were used: nursing clinical judgement PHONE SERVICES SALES REPRESENTATIVE Telephone Encounter - Nadeem Whitney - 06/25/2021 11:49 AM CST Pt currently has a prescription for a home infusion for antibiotics. The pharmacy had questions about this and requested a call back. Please call [phone]. Thank you PHONE SERVICES SALES REPRESENTATIVE documented in 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 [address] [place] [phone] 05/23/2022 Clinical Admitting/Central Communication Scheduling 05/27/2022 Comprehensive Visit Orthopedic Surgery Markus Sams M.D., Ph.D. [address] [place] [phone] 05/29/2022 Office Visit Otorhinolaryngology GoschDex APRN, C.N.P., M.S.N. [address] [place] [phone] 05/29/2022 Office Visit Otorhinolaryngology Nadeem Maradiaga P.A.-C., M.S. [address] [place] [phone] 05/31/2022 Appointment Radiology Guilherme Matt MPAS, P.A.-C., M.S. [address] [place] [phone] 06/05/2022 Appointment Laboratory Medicine Angélica Granger P.A.-C. [address] [place] [phone] 06/19/2022 Appointment Laboratory Medicine Angélica Granger P.A.-C. [address] [place] [phone] 07/03/2022 Appointment Laboratory Medicine Angélica Granger P.A.-C. [address] [place] [phone] 07/17/2022 Appointment Laboratory Medicine Angélica Granger P.A.-C. [address] [place] [phone] 07/31/2022 Appointment Laboratory Medicine Angélica Granger P.A.-C. [address] [place] [phone] 08/14/2022 Appointment Laboratory Medicine Angélica Granger P.A.-C. [address] [place] [phone] 08/28/2022 Appointment Laboratory Medicine Angélica Granger P.A.-C. 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
--- OUTSIDE RECORDS SUMMARY | 2022-05-17 18:36 | XMS_ITS | Encounter Summary ---
:1955 Author Organization [facility] Address [address] [place] [address] Care Team Providers Name Role Phone Elsewhere, Pcp Primary Care Provider Unavailable Reason for Visit Reason Comments Med Refill Encounter Details Date Type Department Care Team Description 06/29/2021 Refill [facility] for Yusuf Gutierrez, Med Refill Transplantation and Clinical M.D ., M.P.H. 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 [address] [place] [phone] 05/23/2022 Clinical Admitting/Central Communication Scheduling 05/27/2022 Comprehensive Visit Orthopedic Surgery Markus Sams M.D., Ph.D. [address] [place] [address] [phone] 05/29/2022 Office Visit Otorhinolaryngology Dex Matta, RAMONA, C.N.P., M.S.N. [address] [place] [phone] 05/29/2022 Office Visit Otorhinolaryngology Nadeem Maradiaga, P.Murtaza.-Arley., M.S. [address] [place] [phone] 05/31/2022 Appointment Radiology Guilherme Matt MPAS, PMaryanne., M.S. [address] [place] [address] [phone] 06/05/2022 Appointment Laboratory Medicine Angélica Granger P.A.-C. [address] [place] [address] [phone] 06/19/2022 Appointment Laboratory Medicine Angélica Granger P.A.-C. [address] [place] [phone] 07/03/2022 Appointment Laboratory Medicine Angélica Granger P.A.-C. [address] [place] [phone] 07/17/2022 Appointment Laboratory Medicine Angélica Granger P.A.-C. [address] [place] [phone] 07/31/2022 Appointment Laboratory Medicine Angélica Granger P.A.-C. [address] [place] [phone] 08/14/2022 Appointment Laboratory Medicine Angélica Granger P.A.-C. [address] [place] [phone] 08/28/2022 Appointment Laboratory Medicine Angélica Granger P.A.-C. [address] [place] [phone] documented as of this encounter Visit Diagnoses Diagnosis Transplant Liver (HCC) Medication Therapy Hypoid Gear Generator Not Anticoa gulant documented in this encounter Additional Health Concerns Assessment Noted Time PHQ-9 Depression Total Score: 4 11/28/2020 10:17 AM CD T documented as of this encounter Care Teams Art Supervisor Relationship Specialty Start Date End Date Elsewhere, Pcp PCP - General Family Medicine 07/29/17 [facility] - Laboratory Medicine 04/12/[address] [address] documented as of this encounter
--- OUTSIDE RECORDS SUMMARY | 2022-05-17 18:36 | XMS_ITS | Encounter Summary ---
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 under monitored anesthesia care. Patient understands the need for COVID-19 testing prior to surgery; consent was obtained today. INGS TRIMMER documented in 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 [address] [place] [phone] 05/23/2022 Clinical Admitting/Central Communication Scheduling 05/27/2022 Comprehensive Visit Orthopedic Surgery Markus Sams M.D., Ph.D. [address] [place] [phone] 05/29/2022 Office Visit Otorhinolaryngology Dex Matta, RAMONA, C.N.P., M.S.N. [address] [place] [phone] 05/29/2022 Office Visit Otorhinolaryngology Nadeem Maradiaga, P.A.-C., M.S. [address] [place] [phone] 05/31/2022 Appointment Radiology Guilherme Matt, RASTA, P.Murtaza.-C., M.S. [address] [place] [phone] 06/05/2022 Appointment Laboratory Medicine Angélica Granger P.A.-C. [address] [place] [phone] 06/19/2022 Appointment Laboratory Medicine Angélica Granger P.A.-C. [address] [place] [phone] 07/03/2022 Appointment Laboratory Medicine Angélica Granger P.A.-C. [address] [place] [phone] 07/17/2022 Appointment Laboratory Medicine Angélica Granger P.A.-C. [address] [place] [phone] 07/31/2022 Appointment Laboratory Medicine Angélica Granger P.A.-C. [address] [place] [phone] 08/14/2022 Appointment Laboratory Medicine Angélica Granger P.A.-C. [address] [place] [phone] 08/28/2022 Appointment Laboratory Medicine Angélica Granger P.A.-C. [address] [place] [phone] documented as of this encounter Visit Diagnoses Diagnosis Hypertension And Chronic Kidney Disease Stage 5 (HCC) Chronic Failure Renal End Stage Renal Di sease Dialysis Dependent (HCC) Immunodeficiency (HCC) Transplant Liver (HCC) documented in this encounter Additional Health Concerns Assessment Noted Time PHQ-9 Depression Total Score: 4 11/28/2020 10:17 AM CD T documented as of this encounter Care Teams Television Camera Operator Relationship Specialty Start Date End Date Elsewhere, Pcp PCP - General Family Medicine 07/29/17 [facility] - Laboratory Medicine 04/12/[address] [address] documented as of this encounter
--- OUTSIDE RECORDS SUMMARY | 2022-05-17 18:36 | XMS_ITS | Encounter Summary ---
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 [address] [place] [phone] 05/23/2022 Clinical Admitting/Central Communication Scheduling 05/27/2022 Comprehensive Visit Orthopedic Surgery Markus Sams M.D., Ph.D. [address] [place] [address] [phone] 05/29/2022 Office Visit Otorhinolaryngology Dex Matta APRN, C.N.P., M.S.N. [address] [place] [phone] 05/29/2022 Office Visit Otorhinolaryngology Nadeem Maradiaga, P.Murtaza.-Arley., M.S. [address] [place] [address] [phone] 05/31/2022 Appointment Radiology Guilherme aMtt MPAS, Jennifer., M.S. [address] [place] [address] [phone] 06/05/2022 Appointment Laboratory Medicine Angélica Granger P.A.-C. [address] [place] [address] [phone] 06/19/2022 Appointment Laboratory Medicine Angélica Granger P.A.-C. [address] [place] [phone] 07/03/2022 Appointment Laboratory Medicine Angélica Granger P.A.-C. [address] [place] [phone] 07/17/2022 Appointment Laboratory Medicine Angélica Granger P.A.-C. [address] [place] [address] [phone] 07/31/2022 Appointment Laboratory Medicine Angélica Granger P.A.-C. [address] [place] [phone] 08/14/2022 Appointment Laboratory Medicine Angélica Granger P.A.-C. [address] [place] [phone] 08/28/2022 Appointment Laboratory Medicine Angélica Granger P.A.-C. [address] [place] [phone] documented as of this encounter Visit Diagnoses Diagnosis Hypertension And Chronic Kidney Disease Stage 4 (HCC) - Primary documented in this encounter Additional Health Concerns Assessment Noted Time PHQ-9 Depression Total Score: 4 11/28/2020 10:17 AM CD T documented as of this encounter Care Teams Grain Handler Relationship Specialty Start Date End Date Elsewhere, Pcp PCP - General Family Medicine 07/29/17 [facility] - Laboratory Medicine 04/12/20 [place] [phone] documented as of this encounter
--- OUTSIDE RECORDS SUMMARY | 2022-05-17 18:36 | XMS_ITS | Encounter Summary ---
:1955 Author Organization [facility] Address [address] [place] [address] Care Team Providers Name Role Phone Elsewhere, Pcp Primary Care Provider Unavailable Reason for Visit Reason Comments Communication Encounter Details Date Type Department Care Team Description 06/19/2021 Clinical Communication Irena Gamez [facility] Communication Center for R, R.N. 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 Shadia Rasheed CHILL TECHNICIAN documented in 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 [address] [place] [phone] 05/23/2022 Clinical Admitting/Central Communication Scheduling 05/27/2022 Comprehensive Visit Orthopedic Surgery Markus Sams M.D., Ph.D. [address] [place] [phone] 05/29/2022 Office Visit Otorhinolaryngology Dex Matta APRN, C.N.P., M.S.N. [address] [place] [phone] 05/29/2022 Office Visit Otorhinolaryngology Nadeem Maradiaga P.A.-C., M.S. [address] [place] [phone] 05/31/2022 Appointment Radiology Guilherme Matt MPAS, P.A.-C., M.S. [address] [place] [phone] 06/05/2022 Appointment Laboratory Medicine Angélica Granger P.A.-C. [address] [place] [phone] 06/19/2022 Appointment Laboratory Medicine Angélica Granger P.A.-C. [address] [place] [phone] 07/03/2022 Appointment Laboratory Medicine Angélica Granger P.A.-C. [address] [place] [phone] 07/17/2022 Appointment Laboratory Medicine Angélica Granger P.A.-C. [address] [place] [phone] 07/31/2022 Appointment Laboratory Medicine Angélica Granger P.A.-C. [address] [place] [phone] 08/14/2022 Appointment Laboratory Medicine Angélica Granger P.A.-C. [address] [place] [phone] 08/28/2022 Appointment Laboratory Medicine Angélica Granger P.A.-C. [address] [place] [phone] documented as of this encounter Visit Diagnoses Not on filedocumented in this encounter Additional Health Concerns Assessment Noted Time PHQ-9 Depression Total Score: 4 11/28/2020 10:17 AM CD T documented as of this encounter Care Teams Stack Yield Engineer Relationship Specialty Start Date End Date Elsewhere, Pcp PCP - General Family Medicine 07/29/17 [facility] - Laboratory Medicine 04/12/[address] [address] documented as of this encounter
--- OUTSIDE RECORDS SUMMARY | 2022-05-17 18:36 | XMS_ITS | Encounter Summary ---
:1955 Author Organization [facility] Address [address] [place] [address] Care Team Providers Name Role Phone Elsewhere, Pcp Primary Care Provider Unavailable Reason for Visit Reason Comments Treatment Outpatient (Routine) - Authorized Specialty Diagnoses / Procedures Referred By Contact Refer red To Contact Diagnoses Colitis Cytomegalovirus (HCC) Transplant Liver (HCC) Otoniel Linares M.D. [facility] Procedures Perform central liner reroll tender: Site care, Flush port(s) [address] [place] [address] Referral ID Status Reason Start Date Expiration Date Visits V isits Requested Authorized [id number] Authorized 06/26/2021 06/26/2022 8 8 Encounter Details Date Type Department Care Team Description 07/02/2021 Infusion Department of Infusion Otoniel Linares Cytomegalovirus (HCC) (Primary Dx); Therapy in Jimmie Tubbs M.D. 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 [address] [place] [phone] 05/23/2022 Clinical Admitting/Central Communication Scheduling 05/27/2022 Comprehensive Visit Orthopedic Surgery Markus Sams M.D., Ph.D. [address] [place] [phone] 05/29/2022 Office Visit Otorhinolaryngology Dex Matta APRN, C.N.P., M.S.N. [address] [place] [phone] 05/29/2022 Office Visit Otorhinolaryngology Nadeem Maradiaga, Jennifer., M.S. [address] [place] [phone] 05/31/2022 Appointment Radiology Guilherme Matt MPAS, P.A.-C., M.S. [address] [place] [phone] 06/05/2022 Appointment Laboratory Medicine Angélica Granger P.A.-C. [address] [place] [phone] 06/19/2022 Appointment Laboratory Medicine Angélica Granger P.A.-C. [address] [place] [phone] 07/03/2022 Appointment Laboratory Medicine Angélica Granger P.A.-C. [address] [place] [phone] 07/17/2022 Appointment Laboratory Medicine Angélica Granger P.A.-C. [address] [place] [phone] 07/31/2022 Appointment Laboratory Medicine Angélica Granger P.A.-C. [address] [place] [phone] 08/14/2022 Appointment Laboratory Medicine Angélica Granger P.A.-C. [address] [place] [phone] 08/28/2022 Appointment Laboratory Medicine Angélica Granger P.A.-C. 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 documented in this encounter Additional Health Concerns Assessment Noted Time PHQ-9 Depression Total Score: 4 11/28/2020 10:17 AM CD T documented as of this encounter Care Teams District Resource Officer Relationship Specialty Start Date End Date Elsewhere, Pcp PCP - General Family Medicine 07/29/17 [facility] - Laboratory Medicine 04/12/[address] [address] documented as of this encounter
--- OUTSIDE RECORDS SUMMARY | 2022-05-17 18:36 | XMS_ITS | Encounter Summary ---
:1955 Author Organization [facility] Address [address] [place] [address] Care Team Providers Name Role Phone Elsewhere, Pcp Primary Care Provider Unavailable Reason for Visit Reason Comments Communication new order Encounter Details Date Type Department Care Team Description 06/20/2021 Clinical Curt Pugh, Commun ication (new Communication Center for maggi Thompson) Transplantation and PAdilia, Clinical Regeneration M.S. 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 - 06/20/2021 10:43 AM CST IR Tunneled PICC Removal order placed. ON BLOCKER Telephone Encounter - Meena Aguilar - 06/20/2021 9:20 AM CST Janet Patient is scheduled to see ifd on 07/12. New order needed for his PICC line removal. Please order Tunneled line removal with IR. Thank you Nayely ON BLOCKER documented in 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 [address] [place] [phone] 05/23/2022 Clinical Admitting/Central Communication Scheduling 05/27/2022 Comprehensive Visit Orthopedic Surgery Markus Sams M.D., Ph.D. [address] [place] [phone] 05/29/2022 Office Visit Otorhinolaryngology Dex Matta APRN, C.N.P., M.S.N. [address] [place] [phone] 05/29/2022 Office Visit Otorhinolaryngology Nadeem Maradiaga, PMaryanne., M.S. [address] [place] [phone] 05/31/2022 Appointment Radiology Guilherme Matt MPAS, PMaryanne., M.S. [address] [place] [phone] 06/05/2022 Appointment Laboratory Medicine Angélica Granger P.A.-C. [address] [place] [phone] 06/19/2022 Appointment Laboratory Medicine Angélica Granger P.A.-C. [address] [place] [address] [phone] 07/03/2022 Appointment Laboratory Medicine Angélica Granger P.A.-C. [address] [place] [phone] 07/17/2022 Appointment Laboratory Medicine Angélica Granger P.A.-C. [address] [place] [phone] 07/31/2022 Appointment Laboratory Medicine Angélica Granger P.A.-C. [address] [place] [phone] 08/14/2022 Appointment Laboratory Medicine Angélica Granger P.A.-C. [address] [place] [phone] 08/28/2022 Appointment Laboratory Medicine Angélica Granger P.A.-C. [address] [place] [phone] documented as of this encounter Visit Diagnoses Diagnosis Transplant Liver (HCC) - Primary Medication Therapy Breading Machine Tender Not Anticoa gulant Bacteremia documented in this encounter Additional Health Concerns Assessment Noted Time PHQ-9 Depression Total Score: 4 11/28/2020 10:17 AM CD T documented as of this encounter Care Teams Ethylene Compressor Operator Relationship Specialty Start Date End Date Elsewhere, Pcp PCP - General Family Medicine 07/29/17 [facility] - Laboratory Medicine 04/12/[address] [address] documented as of this encounter
--- OUTSIDE RECORDS SUMMARY | 2022-05-17 18:36 | XMS_ITS | Encounter Summary ---
:1955 Author Organization [facility] Address [address] [place] [address] Care Team Providers Name Role Phone Elsewhere, Pcp Primary Care Provider Unavailable Reason for Referral MRI/CAT/PET Scan (Routine) - Closed Specialty Diagnoses / Procedures Referred By Contact Refer red To Contact Radiology Diagnoses Rhinosinusitis Chronic Toro Pena M.D. [facility] Procedures CT Sinuses without IV Contrast [address] [place] [address] Referral ID Status Reason Start Date Expiration Date Visits Requ ested Visits Authorized [id number] Closed 06/26/2021 06/26/2022 1 1 utpatient (Routine) - Closed Specialty Diagnoses / Procedures Referred By Contact Refer red To Contact Otorhinolaryngology Toro Pena M.D . [facility] [address] [place] [address] Referral ID Status Reason Start Date Expiration Date Visits Requ ested Visits Authorized [id number] Closed 06/26/2021 06/26/2022 1 1 Scheduling Instructions 2 pm post op slot. This is ok per [facility] AGE LINER Encounter Details Date Type Department Care Team Description 06/26/2021 Orders Only Department of Hinderaker, Rhinosinusitis Otorhinolaryngology in [place], Chron ic (Primary Dx) [place], [place] R.N. 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 [address] [place] [phone] 05/23/2022 Clinical Admitting/Central Communication Scheduling 05/27/2022 Comprehensive Visit Orthopedic Surgery Markus Sams M.D., Ph.D. [address] [place] [phone] 05/29/2022 Office Visit Otorhinolaryngology Dex Matta APRN, C.N.P., M.S.N. [address] [place] [phone] 05/29/2022 Office Visit Otorhinolaryngology Nadeem Maradiaga, P.Tom., M.S. [address] [place] [phone] 05/31/2022 Appointment Radiology Guilherme Matt, RASTA, PMaryanne., M.S. [address] [place] [phone] 06/05/2022 Appointment Laboratory Medicine Angélica Granger P.A.-C. [address] [place] [phone] 06/19/2022 Appointment Laboratory Medicine Angélica Granger P.A.-C. [address] [place] [phone] 07/03/2022 Appointment Laboratory Medicine Angélica Granger P.A.-C. [address] [place] [phone] 07/17/2022 Appointment Laboratory Medicine Angélica Granger P.A.-C. [address] [place] [phone] 07/31/2022 Appointment Laboratory Medicine Angélica Granger P.A.-C. [address] [place] [address] 08/14/2022 Appointment Laboratory Medicine Angélica Granger P.A.-C. [address] [place] [phone] 08/28/2022 Appointment Laboratory Medicine Angélica Granger P.A.-C. [address] [place] [address] Scheduled Referrals Name Type Priority Associated Order Schedule Diagnoses Otorhinolaryngology office Outpatient Routine E xpected: visit (clinic) Referral 07/03/2021 (Approximate), Expires: 09/24/2022 documented as of this encounter Results CT Sinuses without IV Contrast (07/03/2021 7:29 AM LUGGAGE LINER) Anatomical Region Laterality Modality Head, Neuroradiology RST LOS, N/A Computed T omography, Computed Neuroradiology ARZ LOS, Neuroradiology T omography FLA LOS Specimen (Source) Anatomical Collection Method Collection Time Re ceived Time Location / / Volume Laterality 07/03/2021 8:43 AM LUGGAGE LINER Impressions 07/03/2021 8:48 AM LUGGAGE LINER Progressive paranasal sinus inflammatory changes particularly within the right maxillary antrum and ethmoid a ir cells bilaterally with near complete opacification since 10/12/2020. Narrative 07/03/2021 8:48 AM LUGGAGE LINER EXAM: CT SINUSES WITHOUT IV CONTRAST COMPARISON: [...] documented as of this encounter Care Teams Drying Rack Changer Relationship Specialty Start Date End Date Elsewhere, Pcp PCP - General Family Medicine 07/29/17 [facility] - Laboratory Medicine 04/12/[address] [address] documented as of this encounter
--- OUTSIDE RECORDS SUMMARY | 2022-05-17 18:36 | XMS_ITS | Encounter Summary ---
:1955 Author Organization [facility] Address [address] [place] [address] Care Team Providers Name Role Phone Elsewhere, Pcp Primary Care Provider Unavailable Encounter Details Date Type Department Care Team Description 06/21/2021 Documentation Division of Nephrology and Isak Pichardo, Hypertension in [facility] [address] [facility] [address] [place] [phone] Social History Tobacco Use Types Packs/Day Years [...] Date Recorded Male 05/16/2020 4:27 PM MANAGER BIOSTATISTICS documented as of this encounter Progress Notes [...] 07/24/21 Checklist: The Checklist for Surgical Patients ([id number]) was given to the patient with the following instructions: Report to [facility] admissions at the time told to you [...] CONSENT Patient signed the consent form. ?? GER BIOSTATISTICS documented in 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 [address] [place] [phone] 05/23/2022 Clinical Admitting/Central Communication Scheduling 05/27/2022 Comprehensive Visit Orthopedic Surgery Markus Sams M.D., Ph.D. [address] [place] [phone] 05/29/2022 Office Visit Otorhinolaryngology Dex Matta APRN, C.N.P., M.S.N. [address] [place] [phone] 05/29/2022 Office Visit Otorhinolaryngology Nadeem Maradiaga P.A.-C., M.S. [address] [place] [phone] 05/31/2022 Appointment Radiology Guilherme Matt, RASTA, Edmundo, M.S. [address] [place] [phone] 06/05/2022 Appointment Laboratory Medicine Angélica Granger P.A.-C. [address] [place] [phone] 06/19/2022 Appointment Laboratory Medicine Angélica Granger P.A.-C. [address] [place] [phone] 07/03/2022 Appointment Laboratory Medicine Angélica Granger P.A.-C. [address] [place] [phone] 07/17/2022 Appointment Laboratory Medicine Angélica Granger P.A.-C. [address] [place] [phone] 07/31/2022 Appointment Laboratory Medicine Angélica Granger P.A.-C. [address] [place] [phone] 08/14/2022 Appointment Laboratory Medicine Angélica Granger P.A.-C. [address] [place] [phone] 08/28/2022 Appointment Laboratory Medicine Angélica Granger P.A.-C. [address] [place] [phone] documented as of this encounter Visit Diagnoses Not on filedocumented in this encounter Additional Health Concerns Assessment Noted Time PHQ-9 Depression Total Score: 4 11/28/2020 10:17 AM CD T documented as of this encounter Care Teams Chemical Equipment Repairer Relationship Specialty Start Date End Date Elsewhere, Pcp PCP - General Family Medicine 07/29/17 [facility] - Laboratory Medicine 04/12/[address] [address] documented as of this encounter
--- OUTSIDE RECORDS SUMMARY | 2022-05-17 18:36 | XMS_ITS | Encounter Summary ---
:1955 Author Organization [facility] Address [address] [place] [address] Care Team Providers Name Role Phone Elsewhere, Pcp Primary Care Provider Unavailable Encounter Details Date Type Department Care Team Description 06/21/2021 Orders Only Curt aguirre [facility] Jez Simon for Transplantation and M.DDemetrius Clinical Regeneration in [address] [place] [phone] [place] [address] [phone] Social History Tobacco Use Types Packs/Day Years [...] Date Recorded Male 05/16/2020 4:27 PM CEMENTER HAND documented as of 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 [address] [place] [phone] 05/23/2022 Clinical Admitting/Central Communication Scheduling 05/27/2022 Comprehensive Visit Orthopedic Surgery Markus Sams M.D., Ph.D. [address] [place] [phone] 05/29/2022 Office Visit Otorhinolaryngology Dex Matta APRN, C.N.P., M.S.N. [address] [place] [phone] 05/29/2022 Office Visit Otorhinolaryngology Nadeem Maradiaga, P.Murtaza.-Arley., M.S. [address] [place] [phone] 05/31/2022 Appointment Radiology Guilherme Matt MPAS, Jennifer., M.S. [address] [place] [phone] 06/05/2022 Appointment Laboratory Medicine Angélica Granger P.A.-C. [address] [place] [phone] 06/19/2022 Appointment Laboratory Medicine Angélica Granger P.A.-C. [address] [place] [phone] 07/03/2022 Appointment Laboratory Medicine Angélica Granger P.A.-C. [address] [place] [phone] 07/17/2022 Appointment Laboratory Medicine Angélcia Granger P.A.-C. [address] [place] [phone] 07/31/2022 Appointment Laboratory Medicine Angélica Granger P.A.-C. [address] [place] [phone] 08/14/2022 Appointment Laboratory Medicine Angélica Granger P.A.-C. [address] [place] [phone] 08/28/2022 Appointment Laboratory Medicine Angélica Granger P.A.-C. [address] [place] [phone] documented as of this encounter Visit Diagnoses Not on filedocumented in this encounter Additional Health Concerns Assessment Noted Time PHQ-9 Depression Total Score: 4 11/28/2020 10:17 AM CD T documented as of this encounter Care Teams Work Order Detailer Relationship Specialty Start Date End Date Elsewhere, Pcp PCP - General Family Medicine 07/29/17 [facility] - Laboratory Medicine 04/12/[address] [address] documented as of this encounter
--- OUTSIDE RECORDS SUMMARY | 2022-05-17 18:36 | XMS_ITS | Encounter Summary ---
:1955 Author Organization 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 polyethylene Drink 1st portion 4000 mL 0 06/14/202107/10 glycol-electrolytes of prep at 6 PM the (GoLYTELY) evening before. 2nd 236-22.74-6.74 -5.86 portion must be gram started 3 hours solutionIndications: before and finished Transplant Liver ([facility]), 2 hours prior to Medication Therapy Long report time Term Not Anticoagulant, Colitis Cytomegalovirus ([facility]) predniSONE (DELTASONE) 5 Take 1 tablet (5 mg 90 tablet 3 06/29/2021 mg tabletIndications: total) by mouth Transplant Liver ([facility]), daily. Medication Therapy Ag Service Manager Not Anticoagulant Spiriva Respimat 2.5 INHALE [...] mg total) by mouth Transplant Liver ([facility]), 2 (two) times a Medication Therapy Long day. Term Not Anticoagulant UNABLE TO FIND by nasal 0 10/12/2021 (alternating) route 2 (two) times a day. Azelastine 1mg to Sinus Rinse twice daily. [facility] documented as of this encounter Plan of Treatment Upcoming Encounters Date Type Specialty Care Team Description 05/22/2022 Appointment Laboratory Medicine Angélica Granger P.AModesto. [address] [place] [address] 05/23/2022 Clinical Admitting/Central Communication Scheduling 05/27/2022 Comprehensive Visit Orthopedic Surgery Markus Sams M.D., Ph.D. [address] [place] [phone] 05/29/2022 Office Visit Otorhinolaryngology Dex Matta APRN, C.N.P., M.S.N. [address] [place] [phone] 05/29/2022 Office Visit Otorhinolaryngology Nadeem Maradiaga, Edmundo, M.S. [address] [place] [phone] 05/31/2022 Appointment Radiology Guilherme Matt, RASTA, Edmundo, M.S. [address] [place] [phone] 06/05/2022 Appointment Laboratory Medicine Angélica Granger P.A.-C. [address] [place] [phone] 06/19/2022 Appointment Laboratory Medicine Angélica Granger P.A.-C. [address] [place] [phone] 07/03/2022 Appointment Laboratory Medicine Angélica Granger P.A.-C. [address] [place] [phone] 07/17/2022 Appointment Laboratory Medicine Angélica Granger P.A.-C. [address] [place] [phone] 07/31/2022 Appointment Laboratory Medicine Angélica Granger P.A.-C. [address] [place] [phone] 08/14/2022 Appointment Laboratory Medicine Angélica Granger P.A.-C. [address] [place] [address] 08/28/2022 Appointment Laboratory Medicine Angélica Granger P.A.-C. [address] [place] [address] documented as of this encounter Procedures Procedure Name Priority Date/Time Associated Comments Diagnosis US UPPER RAD - Routine 06/21/2021 10:43 Hypertension And Result s for this EXTREMITY (most inpatients AM CARTRIDGE LOADING OPERATOR Chronic Kidney procedure are in BILATERAL and all Disease Stage 5 the results DIALYSIS MAPPING outpatients) (HCC) section. 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) Immunodeficiency (HCC) Transplant Liver (HCC) documented in this encounter Results US Upper Extremity Bilateral Dialysis Mapping (06/21/2021 10:43 AM CARTRIDGE LOADING OPERATOR) Anatomical Region Laterality Modality Upper Extremity, Ultrasound RST LOS, Ultrasound ARZ LOS, Pranav ateral Ultrasound Ultrasound FLA LOS Specimen (Source) Anatomical Collection Method Collection Time Re ceived Time Location / / Volume Laterality 06/21/2021 10:44 AM CARTRIDGE LOADING OPERATOR Impressions 06/21/2021 10:57 AM CARTRIDGE LOADING OPERATOR Upper extremity arteries and veins evaluated for predialysis assessment Narrative 06/21/2021 10:57 AM CARTRIDGE LOADING OPERATOR EXAM: US UPPER EXTREMITY BILATERAL DIALYSIS MAPPING [...] ated for predialysis assessment Otoniel Norwood Jr., D.ODemetrius IMG US PROCEDURES documented in this encounter Visit Diagnoses Diagnosis Hypertension And Chronic Kidney Disease Stage 5 (HCC) Chronic Failure Renal End Stage Renal Di sease Dialysis Dependent (HCC) Immunodeficiency (HCC) Transplant Liver (HCC) documented in this encounter Additional Health Concerns Assessment Noted Time PHQ-9 Depression Total Score: 4 11/28/2020 10:17 AM CD T documented as of this encounter Care Teams Cinder Snapper Relationship Specialty Start Date End Date Elsewhere, Pcp PCP - General Family Medicine 07/29/17 [facility] - Laboratory Medicine 04/12/[address] [address] documented as of this encounter
--- OUTSIDE RECORDS SUMMARY | 2022-05-17 18:36 | XMS_ITS | Encounter Summary ---
:1955 Author Organization [facility] Address [address] [place] [address] Care Team Providers Name Role Phone Elsewhere, Pcp Primary Care Provider Unavailable Encounter Details Date Type Department Care Team Description 06/19/2021 Clinical Communication [facility] Bl[facility] for Leena, MMaury Transplantation and [address] [place] [address] Clinical [facility] in [place], [place] [address] [place] [address] [place] [address] (Work) [phone] Social History Tobacco Use Types Packs/Day Years [...] Date Recorded Male 05/16/2020 4:27 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 [address] [place] [phone] 05/23/2022 Clinical Admitting/Central Communication Scheduling 05/27/2022 Comprehensive Visit Orthopedic Surgery Markus Sams M.D., Ph.D. [address] [place] [phone] 05/29/2022 Office Visit Otorhinolaryngology Dex Matta APRN, C.N.P., M.S.N. [address] [place] [phone] 05/29/2022 Office Visit Otorhinolaryngology Nadeem Maradiaga, P.Murtaza.-Arley., M.S. [address] [place] [phone] 05/31/2022 Appointment Radiology Guilherme Matt MPAS, Jennifer., M.S. [address] [place] [phone] 06/05/2022 Appointment Laboratory Medicine Angélica Granger P.A.-C. [address] [place] [phone] 06/19/2022 Appointment Laboratory Medicine Angélica Granger P.A.-C. [address] [place] [phone] 07/03/2022 Appointment Laboratory Medicine Angélica Granger P.A.-C. [address] [place] [phone] 07/17/2022 Appointment Laboratory Medicine Angélica Granger P.A.-C. [address] [place] [phone] 07/31/2022 Appointment Laboratory Medicine Angélica Granger P.A.-C. [address] [place] [phone] 08/14/2022 Appointment Laboratory Medicine Angélica Granger P.A.-C. [address] [place] [phone] 08/28/2022 Appointment Laboratory Medicine Angélica Granger P.A.-C. [address] [place] [phone] documented as of this encounter Visit Diagnoses Not on filedocumented in this encounter Additional Health Concerns Assessment Noted Time PHQ-9 Depression Total Score: 4 11/28/2020 10:17 AM CD T documented as of this encounter Care Teams Lehr Attendant Relationship Specialty Start Date End Date Elsewhere, Pcp PCP - General Family Medicine 07/29/17 [facility] - Laboratory Medicine 04/12/[address] [address] documented as of this encounter
--- OUTSIDE RECORDS SUMMARY | 2022-05-17 18:36 | XMS_ITS | Encounter Summary ---
:1955 Author Organization [facility] Address [address] [place] [address] Care Team Providers Name Role Phone Elsewhere, Pcp Primary Care Provider Unavailable Reason for Referral Outpatient (Routine) - Closed Specialty Diagnoses / Procedures Referred By Contact Refer red To Contact Pulmonary Medicine Diagnoses Transplant Liver (HCC) Medication Therapy Nursing Home Not Anticoagulant Bronchiolitis Leonid Gonzalez Krowka, Michael J, M.D. M.D. [address] [facility] 200 [place] [phone] Fax: Referral ID Status Reason Start Date Expiration Date Visits Requ ested Visits Authorized [id number] Closed 06/19/2021 06/19/2022 1 1 Scheduling Instructions SPECIAL- please schedule first available Dr Simon visit in relation to recent CT scan. Please call patient to schedule. Monserrat dean ELECTRICAL ENGINEER Encounter Details Date Type Department Care Team Description 06/19/2021 Orders Only Yolie Gamez Trans plant Liver (HCC) (Primary Dx); [facility] for R, R.N. 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 [address] [place] [phone] 05/29/2022 Office Visit Otorhinolaryngology Dex Matta APRN CDemetriusNFabrice., M.S.N. [address] [place] [phone] 05/29/2022 Office Visit Otorhinolaryngology Nadeem Maradiaga P.A.-C., M.S. [address] [place] [phone] 05/31/2022 Appointment Radiology Guilherme Matt MPAS, P.A.-C., M.S. [address] [place] [phone] 06/05/2022 Appointment Laboratory Medicine Angélica Granger P.A.-C. [address] [place] [phone] 06/19/2022 Appointment Laboratory Medicine Angélica Granger P.A.-C. [address] [place] [phone] 07/03/2022 Appointment Laboratory Medicine Angélica Granger P.A.-C. [address] [place] [phone] 07/17/2022 Appointment Laboratory Medicine Angélica Granger P.A.-C. [address] [place] [phone] 07/31/2022 Appointment Laboratory Medicine Angélica Granger P.A.-C. [address] [place] [phone] 08/14/2022 Appointment Laboratory Medicine Angélica Granger P.A.-C. [address] [place] [phone] 08/28/2022 Appointment Laboratory Medicine Angélica Granger P.A.-C. [address] [place] [phone] Scheduled Referrals Name Type Priority Associated Diagnoses Order S chedule Return to provider Outpatient Referral Routine Transplant Live r Expected: in another (HCC) 06/19/2021 specialty Medication Therapy (Approxim ate), Tick Eradicator Not Expires: Anticoagulant 09/17/2022 Bronchiolitis documented as of this encounter Visit Diagnoses Diagnosis Transplant Liver (HCC) - Primary Medication Therapy Tick Eradicator Not Anticoa gulant Bronchiolitis documented in this encounter Additional Health Concerns Assessment Noted Time PHQ-9 Depression Total Score: 4 11/28/2020 10:17 AM CD T documented as of this encounter Care Teams Truck Repair Service Estimator Relationship Specialty Start Date End Date Elsewhere, Pcp PCP - General Family Medicine 07/29/17 [facility] - Laboratory Medicine 04/12/20 [place] [phone] documented as of this encounter
--- OUTSIDE RECORDS SUMMARY | 2022-05-17 18:36 | XMS_ITS | Encounter Summary ---
:1955 Author Organization [facility] Address [address] [place] [address] Care Team Providers Name Role Phone Elsewhere, Pcp Primary Care Provider Unavailable Encounter Details Date Type Department Care Team Description 06/19/2021 Clinical Communication [facility] Leena, MMaury Transplantation and [address] [place] [address] Clinical [facility] in [place], [place] [address] [place] [address] [place] [address] (Work) [phone] Social History Tobacco Use Types Packs/Day Years [...] at Date Recorded Male 05/16/2020 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 [address] [place] [phone] 05/23/2022 Clinical Admitting/Central Communication Scheduling 05/27/2022 Comprehensive Visit Orthopedic Surgery Markus Sams M.D., Ph.D. [address] [place] [phone] 05/29/2022 Office Visit Otorhinolaryngology Dex Matta APRN, C.N.P., M.S.N. [address] [place] [phone] 05/29/2022 Office Visit Otorhinolaryngology Nadeem Maradiaga, P.Murtaza.-Arley., M.S. [address] [place] [address] [phone] 05/31/2022 Appointment Radiology Guilherme Matt MPAS, Jennifer., M.S. [address] [place] [phone] 06/05/2022 Appointment Laboratory Medicine Angélica Granger P.A.-C. [address] [place] [phone] 06/19/2022 Appointment Laboratory Medicine Angélica Granger P.A.-C. [address] [place] [phone] 07/03/2022 Appointment Laboratory Medicine Angélica Granger P.A.-C. [address] [place] [phone] 07/17/2022 Appointment Laboratory Medicine Angélica Granger P.A.-C. [address] [place] [phone] 07/31/2022 Appointment Laboratory Medicine Angélica Granger P.A.-C. [address] [place] [phone] 08/14/2022 Appointment Laboratory Medicine Angélica Granger P.A.-C. [address] [place] [phone] 08/28/2022 Appointment Laboratory Medicine Angélica Granger P.A.-C. [address] [place] [phone] documented as of this encounter Visit Diagnoses Not on filedocumented in this encounter Additional Health Concerns Assessment Noted Time PHQ-9 Depression Total Score: 4 11/28/2020 10:17 AM CD T documented as of this encounter Care Teams Urban Sociologist Relationship Specialty Start Date End Date Elsewhere, Pcp PCP - General Family Medicine 07/29/17 [facility] - Laboratory Medicine 04/12/[address] [address] documented as of this encounter
--- OUTSIDE RECORDS SUMMARY | 2022-05-17 18:36 | XMS_ITS | Encounter Summary ---
:1955 Author Organization [facility] Address [address] [place] [address] Care Team Providers Name Role Phone Elsewhere, Pcp Primary Care Provider Unavailable Reason for Visit Outpatient (Routine) - Closed Specialty Diagnoses / Procedures Referred By Contact Refer red To Contact Pulmonary Medicine Diagnoses Transplant Liver (HCC) Medication Therapy Long-Term Not Anticoagulant Bronchiolitis Leonid Gonzalez, Leonid Simon M.D. M.D. [address] [place] [address] [address] [place] [phone] Fax: Referral ID Status Reason Start Date Expiration Date Visits Requ ested Visits Authorized [id number] Closed 06/19/2021 06/19/2022 1 1 Encounter Details Date Type Department Care Team Description 06/21/2021 Comprehensive Visit Curt Diaz, Transplant Liver (HCC); Center for Leonid Stern Medication Ther apy Central Office Frame Wirer Not Anticoagulant; Transplantation and MMaury Bronchiolitis Clinical Regeneration [address] [place] [address] in [facility] [phone] [place] [address] [place], [place] (Work) [phone] Social History Tobacco Use [...] Date Recorded Male 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 - 06/21/2021 3:00 PM CST Bronchiolitis [...] I did electronically sent those scripts to [facility] in [place]. The gentleman is appreciative of this approach and hopefully we will see improvement as time goes on. Should also be noted that after I had seen him in 2019, he did develope the COVID infection earlierthis year after he had gotten the Moderna vaccinations. He was not hospitalized. All questions were answered. 45 minutes total time NICAL ASSISTANCE CONSULTANT documented in 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 [address] [place] [phone] 05/23/2022 Clinical Admitting/Central Communication Scheduling 05/27/2022 Comprehensive Visit Orthopedic Surgery Markus Sams M.D., Ph.D. [address] [place] [phone] 05/29/2022 Office Visit Otorhinolaryngology Dex Matta APRN, C.N.P., M.S.N. [address] [place] [phone] 05/29/2022 Office Visit Otorhinolaryngology Nadeem Maradiaga, PMaryanne., M.S. [address] [place] [phone] 05/31/2022 Appointment Radiology Guilherme Matt, RASTA, PMaryanne., M.S. [address] [place] [phone] 06/05/2022 Appointment Laboratory Medicine Angélica Granger P.A.-C. [address] [place] [phone] 06/19/2022 Appointment Laboratory Medicine Angélica Granger P.A.-C. [address] [place] [phone] 07/03/2022 Appointment Laboratory Medicine Angélica Granger P.A.-C. [address] [place] [phone] 07/17/2022 Appointment Laboratory Medicine Angélica Granger P.A.-C. [address] [place] [phone] 07/31/2022 Appointment Laboratory Medicine Angélica Granger P.A.-C. [address] [place] [phone] 08/14/2022 Appointment Laboratory Medicine Angélica Granger P.A.-C. [address] [place] [phone] 08/28/2022 Appointment Laboratory Medicine Angélica Granger P.A.-C. [address] [place] [address] documented as of this encounter Visit Diagnoses Diagnosis Transplant Liver (HCC) Medication Therapy Long-Term Not Anticoa gulant Bronchiolitis documented in this encounter Additional Health Concerns Assessment Noted Time PHQ-9 Depression Total Score: 4 11/28/2020 10:17 AM CD T documented as of this encounter Care Teams Regulatory And Compliance Technician Relationship Specialty Start Date End Date Elsewhere, Pcp PCP - General Family Medicine 07/29/17 [facility] - Laboratory Medicine 04/12/[address] [address] documented as of this encounter
--- OUTSIDE RECORDS SUMMARY | 2022-05-17 18:37 | XMS_ITS | Encounter Summary ---
:1955 Author Organization [facility] Address [address] [place] [address] Care Team Providers Name Role Phone Elsewhere, Pcp Primary Care Provider Unavailable Reason for Visit Outpatient (Routine) - Closed Specialty Diagnoses / Procedures Referred By Contact Refer red To Contact Nephrology and [facility] Anatoliy Rees, DDemetriusODemetrius [address] [place] [phone] Referral ID Status Reason Start Date Expiration Date Visits Requ ested Visits Authorized [id number] Closed 06/04/2021 06/04/2022 1 1 Encounter Details Date Type Department Care Team Description 06/12/2021 Virtual Visit Division of Nephrology Otoniel Norwood Jr., D.O. [address] [place] [address] [phone] Chronic Kidney and Hypertension [place] 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 - 06/12/2021 11:[address] Otoniel Norwood ??[phone] CHIEF COMPLAINT/PURPOSE OF VISIT REASON FOR REFERRAL: [...] He initiated hemodialysis on06/01/21. ??He dialyzes at [place] on a Friday, Friday and Friday schedule. Significant Medical History: ?? 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 Rhinosinusitis Chronic, Anemia. PACEMAKER: ??No ?? DIABETES: ??No ?? ANTICOAGULATION: ? Takes 81mg Aspirin but no other anticoagulation medications. ?? LABORATORY RESULTS: ? Current Labs in [facility] from 05/29/21. BMI: ?Body mass index [...] with the patient via phone: Hemodialysis Catheters ([id number]), Hemodialysis Fistula and Graft ([id number]). He received an red/orange Save your Vein [...] future to clear the patient for surgery. NE WELDER documented in 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 [address] [place] [phone] 05/23/2022 Clinical Admitting/Central Communication Scheduling 05/27/2022 Comprehensive Visit Orthopedic Surgery Markus Sams M.D., Ph.D. [address] [place] [phone] 05/29/2022 Office Visit Otorhinolaryngology Dex Matta APRN C.N.P., M.S.N. [address] [place] [phone] 05/29/2022 Office Visit Otorhinolaryngology Nadeem Maradiaga, Jennifer., M.S. [address] [place] [phone] 05/31/2022 Appointment Radiology Guilherme Matt MPAS, Jennifer., M.S. [address] [place] [phone] 06/05/2022 Appointment Laboratory Medicine Angélica Granger P.A.-C. [address] [place] [address] [phone] 06/19/2022 Appointment Laboratory Medicine Angélica Granger P.A.-C. [address] [place] [address] [phone] 07/03/2022 Appointment Laboratory Medicine Angélica Granger P.A.-C. [address] [place] [phone] 07/17/2022 Appointment Laboratory Medicine Angélica Granger P.A.-C. [address] [place] [phone] 07/31/2022 Appointment Laboratory Medicine Angélica Granger P.A.-C. [address] [place] [phone] 08/14/2022 Appointment Laboratory Medicine Angélica Granger P.A.-C. [address] [place] [phone] 08/28/2022 Appointment Laboratory Medicine Angélica Granger P.A.-C. [address] [place] [phone] documented as of this encounter Visit Diagnoses Diagnosis Chronic Kidney Disease Stage 4 Glomerula r Filtration Rate 15-29 (HCC) documented in this encounter Additional Health Concerns Assessment Noted Time PHQ-9 Depression Total Score: 4 11/28/2020 10:17 AM CD T documented as of this encounter Care Teams Seo Assistant Relationship Specialty Start Date End Date Elsewhere, Pcp PCP - General Family Medicine 07/29/17 [facility] - Laboratory Medicine 04/12/[address] [address] documented as of this encounter
--- OUTSIDE RECORDS SUMMARY | 2022-05-17 18:37 | XMS_ITS | Encounter Summary ---
:1955 Author Organization [facility] Address [address] [place] [address] Care Team Providers Name Role Phone Elsewhere, Pcp Primary Care Provider Unavailable Reason for Referral Outpatient (Routine) - Closed Specialty Diagnoses / Procedures Referred By Contact Refer red To Contact Diagnoses Transplant Liver (HCC) Medication Therapy Hand Mixer Not Anticoagulant Colitis Cytomegalovirus (HCC) Trung Plasencia P.A.-C., [facility] Procedures Colonoscopy M.S. 200 [place], [place] [phone] Referral ID Status Reason Start Date Expiration Date Visits Requ ested Visits Authorized [id number] Closed 06/14/2021 06/14/2022 1 1 TY STRUCTURER Transplant (Routine) - Closed Specialty Diagnoses / Procedures Referred By Contact Refer red To Contact Transplant Surgery / Diagnoses Transplant Liver (HCC) Medication Therapy Halfway Not Anticoagulant Colitis Cytomegalovirus (HCC) Trung Plasencia, [facility] Transplant Edmundo, M.S. 200 [place] [address] Referral ID Status Reason Start Date Expiration Date Visits Requ ested Visits Authorized [id number] Closed 06/14/2021 06/14/2022 1 1 Scheduling Instructions SPECIAL- please schedule during the week of 07/09/20. Schedule in the following order: labs then colonoscopy then visit with Raffi Plasencia (Inf Dis) then PICC removal. Please call patient to schedule. Thanks TY STRUCTURER Encounter Details Date Type Department Care Team Description 06/14/2021 Orders Only Curt Moss Yolie Trans plant Liver (HCC) (Primary Dx); Center for R, R.N. 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 [address] [place] [phone] 05/23/2022 Clinical Admitting/Central Communication Scheduling 05/27/2022 Comprehensive Visit Orthopedic Surgery Markus Sams M.D., Ph.D. [address] [place] [phone] 05/29/2022 Office Visit Otorhinolaryngology Dex Matta APRN, C.N.P., M.S.N. [address] [place] [phone] 05/29/2022 Office Visit Otorhinolaryngology Nadeem Maradiaga, Jennifer., M.S. [address] [place] [address] [phone] 05/31/2022 Appointment Radiology Guilherme Matt MPAS, Jennifer., M.S. [address] [place] [address] [phone] 06/05/2022 Appointment Laboratory Medicine Angélica Granger P.A.-C. [address] [place] [phone] 06/19/2022 Appointment Laboratory Medicine Angélica Granger P.A.-C. [address] [place] [phone] 07/03/2022 Appointment Laboratory Medicine Angélica Granger P.A.-C. [address] [place] [phone] 07/17/2022 Appointment Laboratory Medicine Angélica Granger P.A.-C. [address] [place] [phone] 07/31/2022 Appointment Laboratory Medicine Angélica Granger P.A.-C. [address] [place] [phone] 08/14/2022 Appointment Laboratory Medicine Angélica Granger P.A.-C. [address] [place] [phone] 08/28/2022 Appointment Laboratory Medicine Angélica Granger P.A.-C. [address] [place] [phone] Scheduled Referrals Name Type Priority Associated Diagnoses Order S [facility] Transplant Liver Outpatient Routine Transplant Live r (HCC) Expected: office visit Referral Medication Therapy Long 06/23, (clinic) Term Not Anticoa gulant Expires: Colitis Cytomegalovirus 08/22 ([facility]) documented as of this encounter Results Tacrolimus, B (07/10/2021 9:28 AM EQUITY STRUCTURER) athologist Signature Tacrolimus, B 6.2 5.0-15.0 07/10/2021 SDSC (Trough) 6:51 PM EQUITY STRUCTURER ng/mL Comment: ----ADDITIONAL INFORMATION---- Target steady-state trough concentration s vary depending on the type of transplant, concomitant immunosuppressio n, clinical/institutional protocols, and time post-transplant. Results should be interpreted in conjunction with this clinical information and any physic al signs/symptoms of rejection/toxicity. Testing performed by Liquid Chromatograp hy-Tandem Mass Spectrometry (LC-MS/MS). This test was developed and its performa nce characteristics determined by [facility] in a manner consistent with CLIA requirements. This test has not been cleared or approved by the U.S. Mer d and Drug Administration. Specimen Anatomical Collection Method Collection Time Receive d Time (Source) Location / / Volume Laterality Blood (Blood, 07/10/2021 9:28 AM 07/10/19 Venous) EQUITY STRUCTURER 12:24 PM EQUITY STRUCTURER Trung Plasencia P.A.-C., M.S. LAB BLOOD NON ADD-ON Performing Organization Address City/[facility] Phon e Number [facility] [address] [place] [address] SUPPORT [facility] [place] [address] Laboratory Medicine and Pathology [address] [place] [address] Dr. MURILLO (ABNORMAL) CMV DNA Detect / Quant, Plasma (07/10/2021 9:28 AM EQUITY STRUCTURER) [facility] gist Method Time Signature CMV DNA <35 (A) Undetected 07/10/2021 [facility] Detect/Quant, IU/mL 9:28 PM EQUITY STRUCTURER P Comment: Result in log IU/mL is <1.54. CMV DNA is detected, but level present i s <35 IU/mL (<1.54 log IU/mL). This assay cannot accurately quantify CMV DNA below this level. ----ADDITIONAL INFORMATION---- The quantification range of this assay i s 35 to 10,000,000 IU/mL (1.54 log to 7.00 log IU/mL). Testing was performed u sing the tika CMV test ([employer] with the tika [id number] System. Specimen Anatomical Collection Method Collection Time Receive d Time (Source) Location / / Volume Laterality Blood (Blood, 07/10/2021 9:28 AM 07/10/19 Venous) EQUITY STRUCTURER 12:21 PM EQUITY STRUCTURER Trung Plasencia P.A.-C. M.SDemetrius LAB MICROBIOLOGY - BLOOD O RDERABLES Performing Organization Address City/[facility] Phon e Number [place] [phone] [place] [address] SUPPORT [facility] [place] [address] Laboratory Medicine and Pathology [address] [place] [address] Dr. MURILLO (ABNORMAL) Glucose, Fasting (07/10/2021 9:28 AM EQUITY STRUCTURER) P athologist Signature Glucose, P 118 (H) 70 - 100 07/10/2021 DTL mg/dL 10:16 AM EQUITY STRUCTURER Last Intake 19 hr 07/10/2021 DTL 10:02 AM EQUITY STRUCTURER Specimen Anatomical Collection Method Collection Time Receive d Time (Source) Location / / Volume Laterality Blood (Blood, 07/10/2021 9:28 AM 07/10/19 22 Venous) EQUITY STRUCTURER 10:02 AM EQUITY STRUCTURER Trung Plasencia P.A.-C., M.S. LAB BLOOD NON ADD-ON Performing Organization Address City/State/ZIP Code Phon e Number [facility] - [address] [place], [place] [address] [facility] [place] [place] [address] Laboratories-[facility] [address] (ABNORMAL) Comprehensive Metabolic Panel (07/10/2021 9:28 AM EQUITY STRUCTURER) Analysis Performed At Patho logist Time Signature Potassium, S 4.1 3.6 - 5.2 07/10/2021 DTL mmol/L 10:18 AM EQUITY STRUCTURER Sodium, S 137 135 - 145 07/10/2021 DTL mmol/L 10:18 AM EQUITY STRUCTURER Chloride, S 98 98 - 107 07/10/2021 DTL mmol/L 10:18 AM EQUITY STRUCTURER Bicarbonate, S 24 22 - 29 07/10/2021 DTL mmol/L 10:18 AM EQUITY STRUCTURER Anion Gap 15 7 - 15 07/10/2021 DTL 10:18 AM EQUITY STRUCTURER BUN (Blood Urea 25 (H) 8 - 24 07/10/2021 DTL Nitrogen), S mg/dL 10:18 AM EQUITY STRUCTURER Creatinine 2.75 (H) 0.74 - 07/10/2021 DTL 1.35 mg/dL 10:18 AM EQUITY STRUCTURER eGFR-Non 23 (L) >=60 07/10/2021 DTL Black/ mL/min/BSA 10:18 AM EQUITY STRUCTURER [place] Comment: ----ADDITIONAL INFORMATION---- Estimated GFR calculated using the 2009 CKD_EPI creatinine equation. eGFR-Black/ 27 (L) >=60 mL/min/BSA 2021 10:18 AM EQUITY STRUCTURER DTL Comment: ----ADDITIONAL INFORMATION---- Estimated GFR calculated using the 2009 CKD_EPI creatinine equation. Calcium, Total, S 8.9 8.8 - 10.2 mg/dL 07/10/2021 10:1 8 AM EQUITY STRUCTURER DTL Glucose, S CANCELED mg/dL 07/10/2021 10:02 AM EQUITY STRUCTURER DTL Comment: Duplicate test request. Result canceled by the ancillary. Protein, Total, S 6.1 (L) 6.3 - 7.9 g/dL 07/10/2021 10:18 AM EQUITY STRUCTURER DTL Albumin, S 3.9 3.5 - 5.0 g/dL 07/10/2021 10:18 AM EQUITY STRUCTURER DTL Aspartate Aminotransferase 29 8 - 48 U/L 07/10/2021 1 0:18 AM EQUITY STRUCTURER DTL (AST), S Alkaline Phosphatase, S 151 (H) 40 - 129 U/L 07/10/2021 10 :18 AM EQUITY STRUCTURER DTL Alanine Aminotransferase 34 7 - 55 U/L 07/10/2021 10: 18 AM EQUITY STRUCTURER DTL (ALT), S Bilirubin, Total, S 0.4 <=1.2 mg/dL 07/10/2021 10:18 A M EQUITY STRUCTURER DTL Specimen Anatomical Collection Method Collection Time Receive d Time (Source) Location / / Volume Laterality Blood (Blood, 07/10/2021 9:28 AM 07/10/19 22 Venous) EQUITY STRUCTURER 10:01 AM EQUITY STRUCTURER Trung Plasencia P.A.-C., M.S. LAB BLOOD ADD-ON Performing Organization Address City/State/ZIP Code Phon e Number [facility] - 200 [place], [place] [address] [facility] [place] [address] [facility] [address] [facility] (ABNORMAL) CBC with Differential, Blood (07/10/2021 9:28 AM EQUITY STRUCTURER) [facility] gist Method Time Signature Hemoglobin 10.1 (L) 13.2 - 07/10/2021 DTL 16.6 g/dL 9:55 AM EQUITY STRUCTURER Hematocrit 31.2 (L) 38.3 - 07/10/2021 DTL 48.6 % 9:55 AM EQUITY STRUCTURER Erythrocytes 3.21 (L) 4.35 - 07/10/2021 DTL 5.65 9:55 AM EQUITY STRUCTURER x10(12)/L MCV 97.2 78.2 - 07/10/2021 DTL 97.9 fL 9:55 AM EQUITY STRUCTURER RBC Distrib Width 14.5 11.8 - 07/10/2021 DTL 14.5 % 9:55 AM EQUITY STRUCTURER Platelet Count 209 135 - 317 07/10/2021 DTL x10(9)/L 9:55 AM EQUITY STRUCTURER Leukocytes 4.7 3.4 - 9.6 07/10/2021 DTL x10(9)/L 9:55 AM EQUITY STRUCTURER Neutrophils 3.61 1.56 - 07/10/2021 DTL 6.45 9:55 AM EQUITY STRUCTURER x10(9)/L Lymphocytes 0.45 (L) 0.95 - 07/10/2021 DTL 3.07 9:55 AM EQUITY STRUCTURER x10(9)/L Monocytes 0.55 0.26 - 07/10/2021 DTL 0.81 9:55 AM EQUITY STRUCTURER x10(9)/L Eosinophils 0.04 0.03 - 07/10/2021 DTL 0.48 9:55 AM EQUITY STRUCTURER x10(9)/L Basophils <0.03 0.01 - 07/10/2021 DTL 0.08 9:55 AM EQUITY STRUCTURER x10(9)/L Specimen Anatomical Collection Method Collection Time Receive d Time (Source) Location / / Volume Laterality Blood (Blood, 07/10/2021 9:28 AM 07/10/19 22 9:46 Venous) EQUITY STRUCTURER AM EQUITY STRUCTURER Trung Plasencia P.A.-C., M.S. LAB BLOOD ADD-ON Performing Organization Address City/State/ZIP Code Phon e Number [facility] - [facility] [address] [place], [place] [address] [facility] [place] [address] Laboratories[facility] [address] documented in this encounter Visit Diagnoses Diagnosis Transplant Liver (HCC) - Primary Medication Therapy Halfway Not Anticoa gulant Colitis Cytomegalovirus (HCC) documented in this encounter Additional Health Concerns Assessment Noted Time PHQ-9 Depression Total Score: 4 11/28/2020 10:17 AM CD T documented as of this encounter Care Teams Vitreo Retinal Surgeon Relationship Specialty Start Date End Date Elsewhere, Pcp PCP - General Family Medicine 07/29/17 [facility] - Laboratory Medicine 04/12/20 [place] [address] documented as of this encounter
--- OUTSIDE RECORDS SUMMARY | 2022-05-17 18:37 | XMS_ITS | Encounter Summary ---
:1955 Author Organization [facility] Address [address] [place] [address] Care Team Providers Name Role Phone Elsewhere, Pcp Primary Care Provider Unavailable Reason for Referral Outpatient (Routine) - Closed Specialty Diagnoses / Procedures Referred By Contact Refer red To Contact Radiology Diagnoses Colitis Cytomegalovirus (HCC) Trung Plasencia P.A.-C., [facility] Procedures IR PICC Line Placement M.S. [address] [place] [phone] Referral ID Status Reason Start Date Expiration Date Visits Requ ested Visits Authorized [id number] Closed 06/13/2021 06/13/2022 1 1 RITY RISK ANALYST Reason for Visit Outpatient (Routine) - Closed Specialty Diagnoses / Procedures Referred By Contact Refer red To Contact Radiology Diagnoses Colitis Cytomegalovirus (HCC) Trung Plasencia P.A.-C., [facility] Procedures IR PICC Line Placement M.S. [address] [place] [phone] Referral ID Status Reason Start Date Expiration Date Visits Requ ested Visits Authorized [id number] Closed 06/13/2021 06/13/2022 1 1 Encounter Details Date Type Department Care Team Description 06/14/2021 Hospital Encounter Department of Trung Plasencia P.A.-C., M.SDemetrius [address] [place] [address] [phone] Colitis Cytomegalovirus Radiology in Elian Sheppard M.D. [address] [place] [phone] ([facility]) Morales Santamaria David F Jr., M.D. [address] [place] [phone] [place] [address] [place] [address] Social History Tobacco Use Types [...] Date Recorded Male 05/16/2020 4:27 PM SECURITY RISK ANALYST documented as of this encounter Last Filed Vital Signs Vital Sign Reading Time Taken Comments Blood Pressure 129/81 06/14/2021 11:20 AM SECURITY RISK ANALYST Pulse 78 06/14/2021 11:20 AM SECURITY RISK ANALYST Temperature 37 ??C (98.6 ??F) 06/14/2021 11:36 AM SECURITY RISK ANALYST Respiratory Rate 17 06/14/2021 11:20 AM SECURITY RISK ANALYST Oxygen Saturation 97% 06/14/2021 11:20 AM SECURITY RISK ANALYST Inhaled Oxygen Concentration - - Weight 75 kg (165 lb 5.5 oz) 06/14/2021 9:48 AM SECURITY RISK ANALYST Height - - Body Mass Index 24.77 06/06/2021 1:19 PM SECURITY RISK ANALYST documented in this encounter Discharge Instructions AttachmentsThe following attachments cannot be sent through Care Everywhere. Peripherally Inserted Central Catheter (PICC) (Gibraltarian)documented in this encounter Medications at Time of [...] FOUR TIMES A DAY FOR 34 DOSES vancomycin (VANCOCIN) Take 1 capsule (125 42 capsule 0 06/1207/03/2021 125 mg capsule mg total) by mouth 2 (two) times a day for 21 days. C. Diff. Prophylaxis while on Bactrim. doxazosin (CARDURA) 4 mg Take 1 tablet (4 mg 90 tablet 3 07/25/2021 tabletIndications: total) by mouth at Hypertension Essential bedtime. Primary lamoTRIgine (LaMICtal) TAKE 1 TABLET BY 200 tablet 3 021 10/22/2021 200 mg tablet MOUTH TWICE DAILY mycophenolate (CELLCEPT) TAKE 1 TABLET BY 180 tablet 3 11/0610/11/2021 500 mg MOUTH TWICE DAILY tabletIndications: Transplant Liver (HCC) NIFEdipine XL (PROCARDIA Take 3 tablets (90 270 tablet 3 07/05/2021 XL) 30 mg 24 hr tablet mg total) by mouth daily. sulfamethoxazole-trimeth Take 1 tablet by 14 tablet 0 06/1206/26/2021 oprim (BACTRIM,SEPTRA) mouth daily for 14 400-80 mg per tablet days. Take after dialysis on dialysis days. tacrolimus (PROGRAF) 0.5 Take 2 capsules (1 360 capsule 3 07/16/2021 mg capsuleIndications: mg total) by mouth Transplant Liver (HCC), 2 (two) times a Medication Therapy Long day. Term Not Anticoagulant ganciclovir 90 mg in D5W Infuse 90 [...] doses. Take after dialysis on dialysis days. budesonide (Pulmicort) Mix 1 ampule in 120 [...] by 0 06/18/2013 10/12/2021 mouth daily. Maintenance polyethylene Drink 1st portion 4000 mL 0 06/14/202107/10 glycol-electrolytes of prep at 6 PM the (GoLYTELY) evening before. 2nd 236-22.74-6.74 -5.86 portion must be gram started 3 hours solutionIndications: before and finished Transplant Liver (HCC), 2 hours prior to Medication Therapy Long report time Term Not Anticoagulant, Colitis Cytomegalovirus (HCC) predniSONE (DELTASONE) 5 Take 1 tablet (5 mg 90 tablet 3 06/29/2021 mg tabletIndications: total) by mouth Transplant Liver (HCC), daily. Medication Therapy Prison Not Anticoagulant Spiriva Respimat 2.5 INHALE 2 PUFFS BY 4 g 0 01/09/20 21 07/26/2021 mcg/actuation inhaler MOUTH DAILY UNABLE TO FIND by nasal 0 10/12/2021 [...] Not applicable PATIENT INSTRUCTIONS No return appointment RITY RISK ANALYST documented in 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 [address] [place] [phone] 05/23/2022 Clinical Admitting/Central Communication Scheduling 05/27/2022 Comprehensive Visit Orthopedic Surgery Markus Sams M.D., Ph.D. [address] [place] [phone] 05/29/2022 Office Visit Otorhinolaryngology Dex Matta APRN, C.N.P., M.S.N. [address] [place] [phone] 05/29/2022 Office Visit Otorhinolaryngology Nadeem Maradiaga P.A.-Arley., M.S. [address] [place] [address] [phone] 05/31/2022 Appointment Radiology Guilherme Matt MPAS, Edmundo, M.S. [address] [place] [address] [phone] 06/05/2022 Appointment Laboratory Medicine Angélica Granger P.A.-C. [address] [place] [phone] 06/19/2022 Appointment Laboratory Medicine Angélica Granger P.A.-C. [address] [place] [phone] 07/03/2022 Appointment Laboratory Medicine Angélica Granger P.A.-C. [address] [place] [phone] 07/17/2022 Appointment Laboratory Medicine Angélica Granger P.A.-C. [address] [place] [phone] 07/31/2022 Appointment Laboratory Medicine Angélica Granger P.A.-C. [address] [place] [phone] 08/14/2022 Appointment Laboratory Medicine Angélica Granger P.A.-C. [address] [place] [phone] 08/28/2022 Appointment Laboratory Medicine Angélica Granger P.A.-C. [address] [place] [address] [phone] documented as of this encounter Procedures Procedure Name Priority Date/Time Associated Diagnosis Comme nts IR PICC LINE RAD - Routine 06/14/2021 11:24 Colitis Results fo r PLACEMENT (most inpatients AM SECURITY RISK ANALYST Cytomegalovirus (HCC) th is procedure and all are in the outpatients) results section. documented in this encounter Results IR PICC Line Placement (06/14/2021 11:24 AM SECURITY RISK ANALYST) Anatomical Region Laterality Modality Chest, Pelvis, Abdomen, Vascular Interventional RST LOS, N/A X-Ray Angiography Vascular Interventional ARZ LOS, Vascular Interventional FLA LOS Specimen (Source) Anatomical Collection Method Collection Time Re ceived Time Location / / Volume Laterality 06/14/2021 2:30 PM SECURITY RISK ANALYST Impressions 06/14/2021 2:32 PM SECURITY RISK ANALYST Placement of a tunneled left IJV 4 Burkinan single lumen PowerPICC SOLO. Ready for immediate use. EP Narrative 06/14/2021 2:32 PM SECURITY RISK ANALYST EXAM: IR PICC LINE PLACEMENT CLINICAL HISTORY: [...] the left anterior chest wall. A 4 Burkinan single lumen PowerPICC SOLO was t unneled from the chest incision to the venotomy. A peel-away sheath was placed in the venotomy and catheter, cut to length, was advanced through the sheath. Catheter exits the skin at the 0 cm guilherme. Final radiograph demonstrates the catheter tip at [...] the left anterior chest wall. A 4 [place]kinan single lumen PowerPICC SOLO was t unneled from the chest incision to the venotomy. A peel-away sheath was placed in the venotomy and catheter, cut to length, was advanced through the sheath. Catheter exits the skin at the 0 cm guilherme. Final radiograph demonstrates the catheter tip at [...] SOLO. Ready for immediate use. EP Trung lPasencia P.A.-C. M.S. IMG IR PROCEDURES documented in [...] bicarbonate (buffered) Given 06/14/2021 11:00 A M SECURITY RISK ANALYST 15 mL 0.9%-8.4% injection infiltration, Code/trauma/sedation medication, [...] Recently Administered Medications Times are shown in SECURITY RISK ANALYST. Scheduled Medication Order 06/12/2021 06/13/2021 06/14/2021 sodium [...] documented as of this encounter Care Teams Recruiting And Selection Consultant Relationship Specialty Start Date End Date Elsewhere, Pcp PCP - General Family Medicine 07/29/17 [facility] - Laboratory Medicine 04/12/20 [place] [phone] documented as of this encounter
--- OUTSIDE RECORDS SUMMARY | 2022-05-17 18:37 | XMS_ITS | Encounter Summary ---
:1955 Author Organization [facility] Address [address] [place] [address] Care Team Providers Name Role Phone Elsewhere, Pcp Primary Care Provider Unavailable Reason for Referral Outpatient (Routine) - Closed Specialty Diagnoses / Procedures Referred By Contact Refer red To Contact Radiology Diagnoses Colitis Cytomegalovirus (HCC) Trung Plasencia P.A.-C., [facility] Procedures IR PICC Line Placement M.S. [address] [place] [phone] Referral ID Status Reason Start Date Expiration Date Visits Requ ested Visits Authorized [id number] Closed 06/13/2021 06/13/2022 1 1 LINE COOK Encounter Details Date Type Department Care Team Description 06/13/2021 Orders Only Trung Swenson Cytomegalovirus [facility], (HCC) (Primary Dx) Transplantation and M.S. Clinical Regeneration in [address] [place] [address] [place] [phone] [place] [phone] Social History Tobacco Use Types Packs/Day Years [...] at Date Recorded Male 05/16/2020 4:27 PM BACK LINE COOK documented as of 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 [address] [place] [phone] 05/23/2022 Clinical Admitting/Central Communication Scheduling 05/27/2022 Comprehensive Visit Orthopedic Surgery Markus Sams M.D., Ph.D. [address] [place] [phone] 05/29/2022 Office Visit Otorhinolaryngology Dex Matta, RAMONA, C.NJuan Miguel, M.S.N. [address] [place] [phone] 05/29/2022 Office Visit Otorhinolaryngology Nadeem Maradiaga P.A.-C., M.S. [address] [place] [phone] 05/31/2022 Appointment Radiology Guilherme Matt MPAS, P.A.-C., M.S. [address] [place] [phone] 06/05/2022 Appointment Laboratory Medicine Angélica Granger P.A.-C. [address] [place] [phone] 06/19/2022 Appointment Laboratory Medicine Angélica Granger P.A.-C. [address] [place] [phone] 07/03/2022 Appointment Laboratory Medicine Angélica Granger P.A.-C. [address] [place] [phone] 07/17/2022 Appointment Laboratory Medicine Angélica Granger P.A.-C. [address] [place] [phone] 07/31/2022 Appointment Laboratory Medicine Angélica Granger P.A.-C. [address] [place] [phone] 08/14/2022 Appointment Laboratory Medicine Angélica Granger P.A.-C. [address] [place] [phone] 08/28/2022 Appointment Laboratory Medicine Angélica Granger P.A.-C. [address] [place] [phone] documented as of this encounter Results IR PICC Line Placement (06/14/2021 11:24 AM BACK LINE COOK) Anatomical Region Laterality Modality Chest, Pelvis, Abdomen, Vascular Interventional RST LOS, N/A X-Ray Angiography Vascular Interventional ARZ LOS, Vascular Interventional FLA LOS Specimen (Source) Anatomical Collection Method Collection Time Re ceived Time Location / / Volume Laterality 06/14/2021 2:30 PM BACK LINE COOK Impressions 06/14/2021 2:32 PM BACK LINE COOK Placement of a tunneled left IJV 4 [place] Arabian single lumen PowerPICC SOLO. Ready for immediate use. EP Narrative 06/14/2021 2:32 PM BACK LINE COOK EXAM: IR PICC LINE PLACEMENT CLINICAL HISTORY: [...] the left anterior chest wall. A 4 [place] single lumen PowerPICC SOLO was t unneled [...] the left anterior chest wall. A 4 [place] single lumen PowerPICC SOLO was t unneled [...] documented as of this encounter Care Teams Electromatic Typist Relationship Specialty Start Date End Date Elsewhere, Pcp PCP - General Family Medicine 07/29/17 [facility] - Laboratory Medicine 04/12/20 [place] [phone] documented as of this encounter
--- OUTSIDE RECORDS SUMMARY | 2022-05-17 18:37 | XMS_ITS | Encounter Summary ---
:[address] [facility] Address [address] [place] [address] Care Team Providers Name Role Phone Elsewhere, Pcp Primary Care Provider Unavailable Encounter Details Date Type Department Care Team Description 06/07/2021 Hospital Encounter Department of Willis Herrera Chro nic Kidney Disease; Laboratory Medicine M.DDemetrius Pretransplant Recipient Evaluation Exam and Pathology, [address] [place] [address] [facility] [phone] [place] [phone] [place] [address] (Work) [place] [phone] (Fax) [phone] Social History Tobacco Use Types Packs/Day Years [...] at Date Recorded Male 05/16/2020 4:27 PM BROKE BEATER documented as of this encounter Medications at [...] TIMES A DAY FOR 34 DOSES budesonide (Pulmicort) Mix 1 ampule in 120 [...] (HCC), daily. Medication Therapy Fpc Not Anticoagulant Spiriva Respimat 2.5 INHALE 2 PUFFS BY 4 g 0 01/09/20 21 07/26/2021 mcg/actuation inhaler MOUTH DAILY tacrolimus (PROGRAF) Take 2 capsules (1 360 capsule 3 202007/16/2021 0.5 mg mg total) by mouth 2 capsuleIndications: (two) times a day. Transplant Liver (HCC), Medication Therapy Paper Sorter Not Anticoagulant UNABLE TO FIND by nasal 0 10/12/2021 (alternating) route 2 (two) times a day. Azelastine 1mg to Sinus Rinse twice daily. [facility] documented as of 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 [address] [place] [phone] 05/23/2022 Clinical Admitting/Central Communication Scheduling 05/27/2022 Comprehensive Visit Orthopedic Surgery Markus Sams M.D., Ph.D. [address] [place] [phone] 05/29/2022 Office Visit Otorhinolaryngology Dex Matta APRN, C.N.P., M.S.N. [address] [place] [phone] 05/29/2022 Office Visit Otorhinolaryngology Nadeem Maradiaga, P.A.-C., M.S. [address] [place] [address] [phone] 05/31/2022 Appointment Radiology Guilherme Matt MPAS, P.Murtaza.Marie., M.S. [address] [place] [address] [phone] 06/05/2022 Appointment Laboratory Medicine Angélica Granger P.A.-C. [address] [place] [phone] 06/19/2022 Appointment Laboratory Medicine Angélica Granger P.A.-C. [address] [place] [phone] 07/03/2022 Appointment Laboratory Medicine Angélica Granger P.A.-C. [address] [place] [phone] 07/17/2022 Appointment Laboratory Medicine Angélica Granger P.A.-C. [address] [place] [phone] 07/31/2022 Appointment Laboratory Medicine Angélica Granger P.A.-C. [address] [place] [phone] 08/14/2022 Appointment Laboratory Medicine Angélica Granger P.A.-C. [address] [place] [phone] 08/28/2022 Appointment Laboratory Medicine Angélica Granger P.A.-C. [address] [place] [phone] documented as of this encounter Procedures Procedure Name Priority Date/Time Associated Diagnosis Comme nts HLA CLASS II SAB Routine 06/25/2021 1:00 AM Chronic Kidney Res ults for this ANTIBODY SCREEN BROKE BEATER Disease procedure are in Pretransplant the results Recipient Evaluation section . Exam HLA CLASS I SAB Routine 06/25/2021 1:00 AM Chronic Kidney Resu lts for this ANTIBODY SCREEN BROKE BEATER Disease procedure are in Pretransplant the results Recipient Evaluation section . Exam documented in this encounter Results HLA Class II SAB Antibody Screen (06/25/2021 1:00 AM BROKE BEATER) [facility] Method Time Signature Class II SAB Negative Not Applicable 06/28/2021 DBB8 Overall 10:22 PM BROKE BEATER Result Class II SAB 0 06/28/2021 DBB8 cPRA 10:22 PM BROKE BEATER Comment: ----ADDITIONAL INFORMATION---- cPRA is calculated for either HLA class I or II (except DPB1) antibodies with a normalized MFI >2000 u sing published UNOS frequencies (http://optn.transplant.hrsa .gov). ??For convenience, all HLA antibodies with a normalized MFI >500 are listed in the specificity licea. SAB DRB1 Specificity NONE 06/28/2021 10:22 PM BROKE BEATER DBB8 SAB [id number] Specificity NONE 06/28/2021 10:22 PM BROKE BEATER DBB8 SAB DQB1 Specificity NONE 06/28/2021 10:22 PM BROKE BEATER DBB8 SAB DPB1 Specificity NONE 06/28/2021 10:22 PM BROKE BEATER DBB8 Comment: ----ADDITIONAL INFORMATION---- Method: Luminex Flow Cytometry CLIA: [id number] ??CLIA Junior Java Developer: KRISTAL MIMS MD,PhD Specimen Anatomical Collection Method Collection Time Receive d Time (Source) Location / / Volume Laterality Blood (Blood, 06/25/2021 1:00 AM 06/26/19 1:32 Venous) BROKE BEATER PM BROKE BEATER Willis Herrera M.D. LAB HLA ORDERABLES Performing Organization Address City/State/ZIP Code Phon e Number [facility] - [address] [place], [place] [address] [facility] [place] [address] [place] [address] [facility] [address] HLA Class I SAB Antibody Screen (06/25/2021 1:00 AM BROKE BEATER) [facility] Method Time Signature Class I SAB Negative Not Applicable 06/28/2021 DBB8 Overall 10:14 PM BROKE BEATER Result Class I SAB 0 06/28/2021 DBB8 cPRA 10:14 PM BROKE BEATER Comment: ----ADDITIONAL INFORMATION---- cPRA is calculated for [...] ----ADDITIONAL INFORMATION---- Method: Luminex Flow Cytometry CLIA: [id number] ??CLIA Junior Java Developer: KRISTAL MIMS MD,PhD Specimen Anatomical Collection Method Collection Time Receive d Time (Source) Location / / Volume Laterality Blood (Blood, 06/25/2021 1:00 AM 06/26/19 1:32 Venous) BROKE BEATER PM BROKE BEATER Willis Herrera M.D. LAB HLA ORDERABLES Performing Organization Address City/State/ZIP Code Phon e Number [facility] - [address] [place], [place] [address] [facility] [place] [address] [place] [address] [facility] [address] documented in this encounter Visit Diagnoses Diagnosis Chronic Kidney Disease Pretransplant Recipient Evaluation Exam documented in this encounter Additional Health Concerns Assessment Noted Time PHQ-9 Depression Total Score: 4 11/28/2020 10:17 AM CD T documented as of this encounter Care Teams Database Dba Relationship Specialty Start Date End Date Elsewhere, Pcp PCP - General Family Medicine 07/29/17 [facility] - Laboratory Medicine 04/12/20 [place] [phone] documented as of this encounter
--- OUTSIDE RECORDS SUMMARY | 2022-05-17 18:37 | XMS_ITS | Encounter Summary ---
:1955 Author Organization [facility] Address [address] [place] [address] Care Team Providers Name Role Phone Elsewhere, Pcp Primary Care Provider Unavailable Encounter Details Date Type Department Care Team Description 06/07/2021 Orders Only Curt Garces Javier, Gail Griffiths Kidney Disease; Center for M.D. 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 [address] [place] [phone] 05/23/2022 Clinical Admitting/Central Communication Scheduling 05/27/2022 Comprehensive Visit Orthopedic Surgery Markus Sams M.D., Ph.D. [address] [place] [phone] 05/29/2022 Office Visit Otorhinolaryngology Dex Matta, GROCERY CASHIER, C.N.P., M.S.N. [address] [place] [phone] 05/29/2022 Office Visit Otorhinolaryngology Nadeem Maradiaga, PEdgar.-Arley., M.S. [address] [place] [phone] 05/31/2022 Appointment Radiology Guilherme Matt MPAS, Jennifer., M.S. [address] [place] [address] [phone] 06/05/2022 Appointment Laboratory Medicine Angélica rGanger P.A.-C. [address] [place] [phone] 06/19/2022 Appointment Laboratory Medicine Angélica Granger P.A.-C. [address] [place] [phone] 07/03/2022 Appointment Laboratory Medicine Angélica Granger P.A.-C. [address] [place] [phone] 07/17/2022 Appointment Laboratory Medicine Angélica Granger P.A.-C. [address] [place] [phone] 07/31/2022 Appointment Laboratory Medicine Angélica Granger P.A.-C. [address] [place] [phone] 08/14/2022 Appointment Laboratory Medicine Angélica Granger P.A.-C. [address] [place] [phone] 08/28/2022 Appointment Laboratory Medicine Angélica Granger P.A.-C. [address] [place] [phone] documented as of this encounter Results HLA Class II SAB Antibody Screen (06/25/2021 1:00 AM PLANT ENGINEERING MANAGER) [facility] Method Time Signature Class II SAB Negative Not Applicable 06/28/2021 DBB8 Overall 10:22 PM PLANT ENGINEERING MANAGER Result Class II SAB 0 06/28/2021 DBB8 cPRA 10:22 PM PLANT ENGINEERING MANAGER Comment: ----ADDITIONAL INFORMATION---- cPRA is calculated for either HLA class I or II (except DPB1) antibodies with a normalized MFI >2000 u sing published UNOS frequencies (http://optn.transplant.hrsa .gov). ??For convenience, all HLA antibodies with a normalized MFI >500 are listed in the specificity licea. SAB DRB1 Specificity NONE 06/28/2021 10:22 PM PLANT ENGINEERING MANAGER DBB8 SAB [id number] Specificity NONE 06/28/2021 10:22 PM PLANT ENGINEERING MANAGER DBB8 SAB DQB1 Specificity NONE 06/28/2021 10:22 PM PLANT ENGINEERING MANAGER DBB8 SAB DPB1 Specificity NONE 06/28/2021 10:22 PM PLANT ENGINEERING MANAGER DBB8 Comment: ----ADDITIONAL INFORMATION---- Method: Luminex Flow Cytometry CLIA: [id number] ??CLIA Security Technician: KRISTAL MIMS MD,PhD Specimen Anatomical Collection Method Collection Time Receive d Time (Source) Location / / Volume Laterality Blood (Blood, 06/25/2021 1:00 AM 06/26/19 1:32 Venous) PLANT ENGINEERING MANAGER PM PLANT ENGINEERING MANAGER Willis Herrera M.D. LAB HLA ORDERABLES Performing Organization Address City/State/ZIP Code Phon e Number [facility] - [address] [place], [place] [address] [facility] [address]BB[address] [place] [address] Laboratories-[facility] [address] HLA Class I SAB Antibody Screen (06/25/2021 1:00 AM PLANT ENGINEERING MANAGER) [facility] Method Time Signature Class I SAB Negative Not Applicable 06/28/2021 DBB8 Overall 10:14 PM PLANT ENGINEERING MANAGER Result Class I SAB 0 06/28/2021 DBB8 cPRA 10:14 PM PLANT ENGINEERING MANAGER Comment: ----ADDITIONAL INFORMATION---- cPRA is calculated for [...] ----ADDITIONAL INFORMATION---- Method: Luminex Flow Cytometry CLIA: [id number] ??CLIA Security Technician: KRISTAL MIMS MD,PhD Specimen Anatomical Collection Method Collection Time Receive d Time (Source) Location / / Volume Laterality Blood (Blood, 06/25/2021 1:00 AM 06/26/19 1:32 Venous) PLANT ENGINEERING MANAGER PM PLANT ENGINEERING MANAGER Willis Herrera M.D. LAB HLA ORDERABLES Performing Organization Address City/State/[facility] Code Phon e Number [facility] - [address] [place], [place] [address] [facility] [address]BB[address] [place] [address] [facility] [address] documented in this encounter Visit Diagnoses Diagnosis Chronic Kidney Disease Pretransplant Recipient Evaluation Exam documented in this encounter Additional Health Concerns Assessment Noted Time PHQ-9 Depression Total Score: 4 11/28/2020 10:17 AM CD T documented as of this encounter Care Teams Emergency Medical Service Manager Relationship Specialty Start Date End Date Elsewhere, Pcp PCP - General Family Medicine 07/29/17 [facility] - Laboratory Medicine 04/12/20 [place] [phone] documented as of this encounter
--- OUTSIDE RECORDS SUMMARY | 2022-05-17 18:37 | XMS_ITS | Encounter Summary ---
:1955 Author Organization [facility] Address [address] [place] [address] Care Team Providers Name Role Phone Elsewhere, Pcp Primary Care Provider Unavailable Reason for Visit Episode Based Medications (Routine) - Authorized Specialty Diagnoses / Procedures Referred By Contact Refer red To Contact Diagnoses 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) Elissa Wilcox, RAMONA, Rsharsh Dls Tacho Procedures Adult Outpatient Hemodialysis C.N.P. [address] [place] [address] [place], [place] Phone: [phone] Referral ID Status Reason Start Date Expiration Date Visits V isits Requested Authorized [id number] Authorized 06/01/2021 06/01/2022 99 99 Encounter Details Date Type Department Care Team Description 06/06/2021 Hospital Encounter Division of Elissa Wilcox, Chronic F ailure Renal Nephrology and RAMONA, C.N.P. 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 Medication Therapy Nuclear Scientist Not Anticoagulant Spiriva Respimat 2.5 INHALE 2 PUFFS BY 4 g 0 01/09/20 21 07/26/2021 mcg/actuation inhaler MOUTH DAILY tacrolimus (PROGRAF) Take 2 capsules (1 360 capsule 3 202007/16/2021 0.5 mg mg total) by mouth 2 capsuleIndications: (two) times a day. Transplant Liver (HCC), Medication Therapy Fdc Not Anticoagulant UNABLE TO FIND by nasal 0 10/12/2021 (alternating) route 2 (two) times a day. Azelastine 1mg to Sinus Rinse twice daily. [facility] documented as of 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 [address] [place] [phone] 05/23/2022 Clinical Admitting/Central Communication Scheduling 05/27/2022 Comprehensive Visit Orthopedic Surgery Markus Sams M.D., Ph.D. [address] [place] [phone] 05/29/2022 Office Visit Otorhinolaryngology Dex Matta APRN, C.N.P., M.S.N. [address] [place] [phone] 05/29/2022 Office Visit Otorhinolaryngology Nadeem Maradiaga, Jennifer., M.S. [address] [place] [phone] 05/31/2022 Appointment Radiology Guilherme Matt MPAS, PMaryanne., M.S. [address] [place] [phone] 06/05/2022 Appointment Laboratory Medicine Angélica Granger P.A.-C. [address] [place] [phone] 06/19/2022 Appointment Laboratory Medicine Angélica Granger P.A.-C. [address] [place] [address] [phone] 07/03/2022 Appointment Laboratory Medicine Angélica Granger P.A.-C. [address] [place] [phone] 07/17/2022 Appointment Laboratory Medicine Angélica Granger P.A.-C. [address] [place] [phone] 07/31/2022 Appointment Laboratory Medicine Angélica Granger P.A.-C. [address] [place] [phone] 08/14/2022 Appointment Laboratory Medicine Angélica Granger P.A.-C. [address] [place] [phone] 08/28/2022 Appointment Laboratory Medicine Angélica Granger P.A.-C. [address] [place] [phone] Scheduled Orders Name Type Priority Associated Diagnoses Order S chejohn Hemodialysis Outpatient; Dialysis Routine Chronic Failure Renal [...] epoetin michelle-epbx injection Given 06/06/2021 9:54 AM SWIMMING POOL MAINTENANCE SUPERVISOR 3,000 U nits Other 3,000 Units (RETACRIT) 3,000 Units, subcutaneous, Once, On Fri06/06/21 at 0830, For 1 dose, Indications: ESRD on Dialysis NaCl 0.9 % bolus 1-1,000 mL New Bag 06/06/2021 12:32 PM SWIMMING POOL MAINTENANCE SUPERVISOR 220 mL 60 mL/hr 1-1,000 mL, intravenous, at 1-1,000 mL/hr, Administer over 1 Hours, As needed, for dialysis including prime, rinse back, supervisor facepiece line, flush, or hypotension, Starting on Fri06/06/21 at [...] NaCL. Bolus from Bag 06/06/2021 9:55 AM SWIMMING POOL MAINTENANCE SUPERVISOR 50 mL 100 mL/hr New Bag 06/06/2021 8:23 AM SWIMMING POOL MAINTENANCE SUPERVISOR 220 mL 60 mL/hr documented in this encounter Additional Health Concerns Assessment Noted Time PHQ-9 Depression Total Score: 4 11/28/2020 10:17 AM CD T documented as of this encounter Care Teams Junior Systems Administrator Relationship Specialty Start Date End Date Elsewhere, Pcp PCP - General Family Medicine 07/29/17 [facility] - Laboratory Medicine 04/12/20 [place] [phone] documented as of this encounter
--- OUTSIDE RECORDS SUMMARY | 2022-05-17 18:37 | XMS_ITS | Encounter Summary ---
:1955 Author Organization [facility] Address [address] [place] [address] Care Team Providers Name Role Phone Elsewhere, Pcp Primary Care Provider Unavailable Encounter Details Date Type Department Care Team Description 06/06/2021 Orders Only Division of Nephrology and Asha, Padmini Hernandez, Hypertension, Uatsdin RAMONA, C.N.P., D.N .P. 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 [address] [address] [phone] 05/23/2022 Clinical Admitting/Central Communication Scheduling 05/27/2022 Comprehensive Visit Orthopedic Surgery Markus Sams M.D., Ph.D. [address] [place] [phone] 05/29/2022 Office Visit Otorhinolaryngology Dex Matta APRN, C.N.P., M.S.N. [address] [place] [address] [phone] 05/29/2022 Office Visit Otorhinolaryngology Nadeem Maradiaga, P.Murtaza.-C., M.S. [address] [place] [phone] 05/31/2022 Appointment Radiology Guilherme Matt MPAS, PMaryanne., M.S. [address] [place] [phone] 06/05/2022 Appointment Laboratory Medicine Angélica Granger P.A.-C. [address] [place] [phone] 06/19/2022 Appointment Laboratory Medicine Angélica Granger P.A.-C. [address] [place] [phone] 07/03/2022 Appointment Laboratory Medicine Angélica Granger P.A.-C. [address] [place] [phone] 07/17/2022 Appointment Laboratory Medicine Angélica Granger P.A.-C. [address] [place] [phone] 07/31/2022 Appointment Laboratory Medicine Angélica Granger P.A.-C. [address] [place] [phone] 08/14/2022 Appointment Laboratory Medicine Angélica Granger P.A.-C. [address] [place] [place] [address] [phone] 08/28/2022 Appointment Laboratory Medicine Angélica Granger P.A.-C. [address] [place] [address] [phone] documented as of this encounter Visit Diagnoses Not on filedocumented in this encounter Additional Health Concerns Assessment Noted Time PHQ-9 Depression Total Score: 4 11/28/2020 10:17 AM CD T documented as of this encounter Care Teams Aqueduct And Reservoir Keeper Relationship Specialty Start Date End Date Elsewhere, Pcp PCP - General Family Medicine 07/29/17 [facility] - Laboratory Medicine 04/12/[address] [address] documented as of this encounter
--- OUTSIDE RECORDS SUMMARY | 2022-05-17 18:37 | XMS_ITS | Encounter Summary ---
:1955 Author Organization [facility] Address [address] [place] [address] Care Team Providers Name Role Phone Elsewhere, Pcp Primary Care Provider Unavailable Reason for Referral MRI/CAT/PET Scan (Routine) - Closed Specialty Diagnoses / Procedures Referred By Contact Refer red To Contact Radiology Diagnoses Transplant Liver (HCC) Medication Therapy Longterm Not Anticoagulant Chronic Cough Leonid Gonzlaez M.D. [facility] Procedures CT Chest without IV Contrast [address] [place] [address] Referral ID Status Reason Start Date Expiration Date Visits Requ ested Visits Authorized [id number] Closed 06/05/2021 06/05/2022 1 1 OPTICAL ELEMENT MAKER Reason for Visit MRI/CAT/PET Scan (Routine) - Closed Specialty Diagnoses / Procedures Referred By Contact Refer red To Contact Radiology Diagnoses Transplant Liver (HCC) Medication Therapy Longterm Not Anticoagulant Chronic Cough Leonid Gonzalez M.D. [facility] Procedures CT Chest without IV Contrast [address] [place], [place] [phone] Referral ID Status Reason Start Date Expiration Date Visits Requ ested Visits Authorized [id number] Closed 06/05/2021 06/05/2022 1 1 Encounter Details Date Type Department Care Team Description 06/12/2021 Hospital Encounter Department of Leonid Gonzalez Liver (HCC); Radiology, Kd Camejo M.D. 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 Medication Therapy Longterm Not Anticoagulant Spiriva Respimat 2.5 INHALE 2 PUFFS BY 4 g 0 01/09/20 21 07/26/2021 mcg/actuation inhaler MOUTH DAILY sulfamethoxazole-trimet Take 1 tablet by 14 tablet 0 202006/26/2021 hoprim (BACTRIM,SEPTRA) mouth daily for 14 400-80 mg per tablet days. Take after dialysis on dialysis days. tacrolimus (PROGRAF) Take 2 capsules (1 360 capsule 3 202007/16/2021 0.5 mg mg total) by mouth 2 capsuleIndications: (two) times a day. 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 Azelastine 1mg to Sinus Rinse twice daily. [facility] documented as of 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 [address] [place] [address] [phone] 05/23/2022 Clinical Admitting/Central Communication Scheduling 05/27/2022 Comprehensive Visit Orthopedic Surgery Markus Sams M.D., Ph.D. [address] [place] [phone] 05/29/2022 Office Visit Otorhinolaryngology Dex Matta APRN, C.N.P., M.S.N. [address] [place] [phone] 05/29/2022 Office Visit Otorhinolaryngology Nadeem Maradiaga, P.A.-C., M.S. [address] [place] [phone] 05/31/2022 Appointment Radiology Guilherme Matt MPAS, P.A.-Arley., M.S. [address] [place] [phone] 06/05/2022 Appointment Laboratory Medicine Angélica Granger P.A.-C. [address] [place] [phone] 06/19/2022 Appointment Laboratory Medicine Angélica Granger P.A.-C. [address] [place] [phone] 07/03/2022 Appointment Laboratory Medicine Angélica Granger P.A.-C. [address] [place] [phone] 07/17/2022 Appointment Laboratory Medicine Angélica Granger P.A.-C. [address] [place] [phone] 07/31/2022 Appointment Laboratory Medicine Angélica Granger P.A.-C. [address] [place] [phone] 08/14/2022 Appointment Laboratory Medicine Angélica Granger P.A.-C. [address] [place] [phone] 08/28/2022 Appointment Laboratory Medicine Angélica Granger P.A.-C. [address] [place] [phone] documented as of this encounter Procedures Procedure Name Priority Date/Time Associated Comments Diagnosis CT CHEST WITHOUT RAD - Routine 06/12/2021 10:05 Transplant Liver Re sults for this IV CONTRAST (most inpatients AM FLAT OPTICAL ELEMENT MAKER (HCC) procedure are in and all Medication the results outpatients) Therapy Longterm section. Not Anticoagulan t Chronic Cough documented in this encounter Results CT Chest without IV Contrast (06/12/2021 10:05 AM FLAT OPTICAL ELEMENT MAKER) Anatomical Region Laterality Modality Chest, Thoracic RST LOS, Thoracic ARZ LOS, Thoracic N/A Computed Tomography FLA LOS Specimen (Source) Anatomical Collection Method Collection Time Re ceived Time Location / / Volume Laterality 06/12/2021 10:23 AM FLAT OPTICAL ELEMENT MAKER Impressions 06/12/2021 11:10 AM FLAT OPTICAL ELEMENT MAKER While there are some areas of waxing and waning bilateral infectious/inflammatory bronchiolitis, t here is an overall progression of these findings. Narrative 06/12/2021 11:10 AM FLAT OPTICAL ELEMENT MAKER EXAM: CT CHEST WITHOUT IV CONTRAST COMPARISON: [...] findings. Leonid Gonzalez M.D. 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
--- OUTSIDE RECORDS SUMMARY | 2022-05-17 18:37 | XMS_ITS | Encounter Summary ---
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 [address] [place] [phone] 05/23/2022 Clinical Admitting/Central Communication Scheduling 05/27/2022 Comprehensive Visit Orthopedic Surgery Markus Sams M.D., Ph.D. [address] [place] [phone] 05/29/2022 Office Visit Otorhinolaryngology Dex Matta APRN, C.N.P., M.S.N. [address] [place] [phone] 05/29/2022 Office Visit Otorhinolaryngology Nadeem Maradiaga, P.A.-Arley., M.S. [address] [place] [phone] 05/31/2022 Appointment Radiology Guilherme Matt, RASTA, P.Murtaza.Marie., M.S. [address] [place] [phone] 06/05/2022 Appointment Laboratory Medicine Angélica Granger P.A.-C. [address] [place] [phone] 06/19/2022 Appointment Laboratory Medicine Angélica Granger P.A.-C. [address] [place] [phone] 07/03/2022 Appointment Laboratory Medicine Angélica Granger P.A.-C. [address] [place] [phone] 07/17/2022 Appointment Laboratory Medicine Angélica Granger P.A.-C. [address] [place] [phone] 07/31/2022 Appointment Laboratory Medicine Angélica Granger P.A.-C. [address] [place] [phone] 08/14/2022 Appointment Laboratory Medicine Angélica Granger P.A.-C. [address] [place] [phone] 08/28/2022 Appointment Laboratory Medicine Angélica Granger P.A.-C. [address] [place] [address] [phone] documented as of this encounter Procedures Procedure Name Priority Date/Time Associated Comments Diagnosis GASTROENTEROLOGY IMAGE Routine 06/06/2021 2:35 Re sults for this EXAM PM CAR CLEANING SUPERVISOR procedure are i n the results section. documented in this encounter Results Colonoscopy-Gastroenterology Image Exam (06/06/2021 2:35 PM CAR CLEANING SUPERVISOR) Specimen (Source) Anatomical Collection Method Collection Time Re ceived Time Location / / Volume Laterality 06/06/2021 2:32 PM CAR CLEANING SUPERVISOR Narrative IIMS - 06/06/2021 3:37 PM CAR CLEANING SUPERVISOR This order has been created and [...] documented as of this encounter Care Teams Dust Brush Assembler Relationship Specialty Start Date End Date Elsewhere, Pcp PCP - General Family Medicine 07/29/17 [facility] - Laboratory Medicine 04/12/20 [place] [phone] documented as of this encounter
--- OUTSIDE RECORDS SUMMARY | 2022-05-17 18:37 | XMS_ITS | Encounter Summary ---
:1955 Author Organization [facility] Address [address] [place] [address] Care Team Providers Name Role Phone Elsewhere, Pcp Primary Care Provider Unavailable Reason for Visit Reason Comments Labs Only Encounter Details Date Type Department Care Team Description 06/14/2021 Clinical Communication Irena Gamez [facility] Labs Only Center for R, R.N. 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 *All labs are now found in [facility] - Lab - Flowsheets. For further review of labs, please review there or under Synopsis* GRATION ARCHITECT documented in this encounter Plan of Treatment Upcoming Encounters Date Type Specialty Care Team Description 05/22/2022 Appointment Laboratory Medicine Angélica Granger P.A.-C. [address] [place] [phone] 05/23/2022 Clinical Admitting/Central Communication Scheduling 05/27/2022 Comprehensive Visit Orthopedic Surgery Markus Sams M.D., Ph.D. [address] [place] [phone] 05/29/2022 Office Visit Otorhinolaryngology Dex Matta APRN CDemetriusNDemetriusP., M.S.N. [address] [place] [phone] 05/29/2022 Office Visit Otorhinolaryngology Nadeem Maradiaga P.A.-C., M.S. [address] [place] [phone] 05/31/2022 Appointment Radiology Guilherme Matt MPAS, Edmundo, M.S. [address] [place] [phone] 06/05/2022 Appointment Laboratory Medicine Angélica Granger P.A.-C. [address] [place] [phone] 06/19/2022 Appointment Laboratory Medicine Angélica Granger P.A.-C. [address] [place] [address] [phone] 07/03/2022 Appointment Laboratory Medicine Angélica Granger P.A.-C. [address] [place] [phone] 07/17/2022 Appointment Laboratory Medicine Angélica Granger P.A.-C. [address] [place] [phone] 07/31/2022 Appointment Laboratory Medicine Angélica Granger P.A.-C. [address] [place] [phone] 08/14/2022 Appointment Laboratory Medicine Angélica Granger P.A.-C. [address] [place] [phone] 08/28/2022 Appointment Laboratory Medicine Angélica Granger P.A.-C. [address] [place] [phone] documented as of this encounter Visit Diagnoses Not on filedocumented in this encounter Additional Health Concerns Assessment Noted Time PHQ-9 Depression Total Score: 4 11/28/2020 10:17 AM CD T documented as of this encounter Care Teams Research Center Director Relationship Specialty Start Date End Date Elsewhere, Pcp PCP - General Family Medicine 07/29/17 [facility] - Laboratory Medicine 04/12/[address] [address] documented as of this encounter
--- OUTSIDE RECORDS SUMMARY | 2022-05-17 18:37 | XMS_ITS | Encounter Summary ---
:1955 Author Organization [facility] Address [address] [place] [address] Care Team Providers Name Role Phone Elsewhere, Pcp Primary Care Provider Unavailable Encounter Details Date Type Department Care Team Description 06/13/2021 Orders Only Division of Nephrology and Elissa Wilcox A PRN, Hypertension, Restoration C.N.P. 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 [address] [place] [phone] 05/23/2022 Clinical Admitting/Central Communication Scheduling 05/27/2022 Comprehensive Visit Orthopedic Surgery Markus Sams M.D., Ph.D. [address] [place] [phone] 05/29/2022 Office Visit Otorhinolaryngology Dex Matta APRN, C.N.P., M.S.N. [address] [place] [phone] 05/29/2022 Office Visit Otorhinolaryngology Nadeem Maradiaga, P.Murtaza.-Arley., M.S. [address] [place] [address] [phone] 05/31/2022 Appointment Radiology Guilherme Matt MPAS, Jennifer., M.S. [address] [place] [phone] 06/05/2022 Appointment Laboratory Medicine Angélica Granger P.A.-C. [address] [place] [phone] 06/19/2022 Appointment Laboratory Medicine Angélica Granger P.A.-C. [address] [place] [phone] 07/03/2022 Appointment Laboratory Medicine Angélica Granger P.A.-C. [address] [place] [phone] 07/17/2022 Appointment Laboratory Medicine Angélica Granger P.A.-C. [address] [place] [phone] 07/31/2022 Appointment Laboratory Medicine Angélica Granger P.A.-C. [address] [place] [phone] 08/14/2022 Appointment Laboratory Medicine Angélica Granger P.A.-C. [address] [place] [phone] 08/28/2022 Appointment Laboratory Medicine Angélica Granger P.A.-C. [address] [place] [phone] documented as of this encounter Visit Diagnoses Not on filedocumented in this encounter Additional Health Concerns Assessment Noted Time PHQ-9 Depression Total Score: 4 11/28/2020 10:17 AM CD T documented as of this encounter Care Teams Information Technology Analyst Relationship Specialty Start Date End Date Elsewhere, Pcp PCP - General Family Medicine 07/29/17 [facility] - Laboratory Medicine 04/12/[address] [address] documented as of this encounter
--- OUTSIDE RECORDS SUMMARY | 2022-05-17 18:37 | XMS_ITS | Encounter Summary ---
:1955 Author Organization [facility] Address [address] [place] [address] Care Team Providers Name Role Phone Elsewhere, Pcp Primary Care Provider Unavailable Reason for Visit Transplant (Routine) - Closed Specialty Diagnoses / Procedures Referred By Contact Refer red To Contact Transplant Surgery / Diagnoses Transplant Liver (HCC) Medication Therapy Retirement Not Anticoagulant Chronic Cough [facility] [place] [facility] [address] [place] [phone] Referral ID Status Reason Start Date Expiration Date Visits Requ ested Visits Authorized [id number] Closed 06/05/2021 06/05/2022 1 1 Encounter Details Date Type Department Care Team Description 06/12/2021 Office Visit Yovani Khan MMaury [address] [place] [address] [phone] Colitis Cytomegalovirus (HCC) (Primary D x); [facility] Trung Plasencia P.A.-C., M.S. [address] [place] [phone] Bronchiolitis; Transplantation and Transpla nt Liver (HCC); Clinical Regeneration Medica tion Therapy Director Learning And Development Not Anticoagulant; in [facility] forest botany instructor Chronic Cough; [address] [facility] Rhinosinusitis Chronic; [place], [place] [phone] Social [...] at Date Recorded Male 05/16/2020 4:27 PM CONVERTING TECHNICIAN documented as of this encounter Last Filed Vital Signs Vital Sign Reading Time Taken Comments Blood Pressure - - Pulse - - Temperature 36.1 ??C (97 ??F) 06/12/2021 1:02 PM CONVERTING TECHNICIAN Respiratory Rate - - Oxygen Saturation - - Inhaled Oxygen Concentration - - Weight 73.8 kg (162 lb 11.2 oz) 06/12/2021 1:02 PM CONVERTING TECHNICIAN Height - - Body Mass Index 24.38 06/06/2021 1:19 PM CONVERTING TECHNICIAN documented in this encounter Progress Notes Trung Plasencia P.A.-C., M.S. - 06/12/2021 2:00 PM CST DEMOGRAPHIC INFORMATION Patient Name: Bruce Singh Clinic Number: [id number] Age: 65 y.o. Birthdate: 1955 Sex: male Service Date/Time: 06/12/21 9:55 AM CONVERTING TECHNICIAN TRANSPLANT INFECTIOUS DISEASES SERVICE - Progress Note SUBJECTIVE REFERRAL SOURCE Leonid Gonzalez M.D. 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 Small bowel showed active ileitis with focal erosion but CMV immunostaining was negative. HISTORY OF PRESENT ILLNESS Mr. Singh is a 65 year old gentleman from [place], [place] whom I know from prior clinic [...] also going to be seeing an outside Litigation Secretary in the [facility] right after the first of the year. I called and spoke to Padmini Barry from Nephrology and she has kindly agreed to see if Mr. Singh can receive IV ganciclovir at [facility] after his dialysis. The problem is that he receives dialysis in the afternoon and I am not sure how late the infusion therapy center is open there until. Coming down here to [facility] would be a very long trip [...] studies which are available in [facility] and [facility] respectively. Lab Results Component Value Date HGB [...] for him to receive IV ganciclovir in [facility]. Until such time, I have [...] the content. Case discussed with Padmini Barry, CERTIFIED COURT INTERPRETER, PROCESSING INSPECTOR, DNP from Nephrology Dialysis. Thank you for the opportunity to participate in the care of Mr. Singh. Miri Gonzalez.Marie., M.S. ADDENDUM June 13, 2021 Mr. Singh will receive IV ganciclovir 90 mg three times weekly after dialysis on dialysis days at home through [facility] Specialty [facility]fusion [facility] services beginning June 15, 2021. He will have a tunneled PICC placed by IR tomorrow. Prescriptions for Ganciclovir and PICC flushes faxed to [facility]. Trung Plasencia P.A.-C., M.S. ERTING TECHNICIAN documented in this encounter Plan of Treatment Upcoming Encounters Date Type Specialty Care Team Description 05/22/2022 Appointment Laboratory Medicine Angélica Granger P.A.-C. [address] [place] [phone] 05/23/2022 Clinical Admitting/Central Communication Scheduling 05/27/2022 Comprehensive Visit Orthopedic Surgery Markus Sams M.D., Ph.D. [address] [place] [phone] 05/29/2022 Office Visit Otorhinolaryngology Dex Matta APRN, C.N.P., M.S.N. [address] [place] [phone] 05/29/2022 Office Visit Otorhinolaryngology Nadeem Maradiaga, PMaryanne., M.S. [address] [place] [phone] 05/31/2022 Appointment Radiology Guilherme Matt, RASTA, Edmundo, M.S. [address] [place] [phone] 06/05/2022 Appointment Laboratory Medicine Angélica Granger P.A.-C. [address] [place] [phone] 06/19/2022 Appointment Laboratory Medicine Angélica Granger P.A.-C. [address] [place] [phone] 07/03/2022 Appointment Laboratory Medicine Angélica Granger P.A.-C. [address] [place] [phone] 07/17/2022 Appointment Laboratory Medicine Angélica Granger P.A.-C. [address] [place] [phone] 07/31/2022 Appointment Laboratory Medicine Angélica Granger P.A.-C. [address] [place] [phone] 08/14/2022 Appointment Laboratory Medicine Angélica Granger P.A.-C. [address] [place] [phone] 08/28/2022 Appointment Laboratory Medicine Angélica Granger P.A.-C. [address] [place] [phone] documented as of this encounter Results (ABNORMAL) CMV DNA Detect / Quant, Plasma (06/12/2021 2:02 PM CONVERTING TECHNICIAN) [facility] Method Time Signature CMV DNA 980 (A) Undetected 06/13/2021 [facility] Detect/Quant, IU/mL 8:32 PM CONVERTING TECHNICIAN P Comment: Result in log IU/mL is 2.99. ----ADDITIONAL INFORMATION---- The quantification range of this assay i s 35 to 10,000,000 IU/mL (1.54 log to 7.00 log IU/mL). Testing was performed u sing the tika CMV test ([employer] with the tika 6800 System. Specimen Anatomical Collection Method Collection Time Receive d Time (Source) Location / / Volume Laterality Blood (Blood, 06/12/2021 2:02 PM 06/12/20 7:07 Venous) CONVERTING TECHNICIAN PM CONVERTING TECHNICIAN Trung Plasencia P.A.-C. M.S. LAB MICROBIOLOGY - BLOOD O RDERABLES Performing Organization Address City/State/ZIP Code Phon e Number [facility] [address] [place], [place] [address] SUPPORT CENTER [facility] [place] [address] Laboratory Medicine and Pathology [address] 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
--- NOTE | 2022-05-17 18:38 | ED.GENADULT ---
HPI - General Adult General Date Seen: 05/17/22 Chief complaint: Cough Stated complaint: Possible blood infection Time Seen by Provider: 05/17/22 17:19 Source: patient and family Mode of arrival: ambulatory Limitations: no limitations History of Present Illness HPI narrative: Patient is a 66-year-old gentleman who presents here for evaluation of chills, and low-grade fever, for the past 2 times after he has done his dialysis he has noted some tingling in his fingers and feet bilaterally, along with a low-grade fever of 100.4. He called his sugarcane planter at [place], he recommended they come in and get blood test, he is dialyzed Friday at [facility] he has also had a previous hepatic transplant. 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 Denies any current fevers chills, feels pretty good denies any chest pain abdominal pain nausea vomiting diarrhea rashes, he always has a cough, cough maybe a little bit worse than normal. Tells me his lungs are always abnormal with crackles in them. Related Data Home Medications Medication Instructions Recorded Confirmed albuterol sulfate 90 mcg/actuation 2 puff inhalation Q6H PRN 03/29/22 03/29/22 aerosol inhaler aspirin 81 mg tablet,delayed 81 mg PO QDAY 03/29/22 03/29/22 release (Adult Low Dose Aspirin) atorvastatin 10 mg tablet 10 mg PO QDAY 03/29/22 03/29/22 azelastine 137 mcg (0.1 %) nasal 1 spray intranasal BID 03/29/22 03/29/22 spray aerosol benzonatate 100 mg capsule 100 mg PO BID PRN 03/29/22 03/29/22 budesonide 0.25 mg/2 mL suspension 0.5 mg inhalation QDAY 03/29/22 03/29/22 for nebulization (Pulmicort) coenzyme Q10 100 mg capsule 100 mg PO QDAY 03/29/22 03/29/22 fluticasone fur. 200 mcg-umeclid 1 inh inhalation QDAY 03/29/22 03/29/22 62.5 mcg-vilant 25 mcg inhalat.powder (Trelegy Ellipta) ipratropium bromide 21 mcg (0.03 2 spray intranasal BID 03/29/22 03/29/22 %) nasal spray lamotrigine 200 mg tablet 200 mg PO BID 03/29/22 03/29/22 (Lamictal) levothyroxine 25 mcg capsule 25 mcg PO QDAY 03/29/22 03/29/22 loratadine 10 mg tablet 10 mg PO QDAY 03/29/22 03/29/22 montelukast 10 mg tablet 10 mg PO QDAY 03/29/22 03/29/22 (Singulair) mycophenolate mofetil 500 mg 500 mg PO Q12H 03/29/22 03/29/22 tablet (CellCept) nifedipine 30 mg tablet,extended 30 mg PO QDAY 03/29/22 03/29/22 release 24 hr (Procardia XL) ondansetron HCl 4 mg tablet 4 mg PO Q8H 03/29/22 03/29/22 prednisone 5 mg tablet 5 mg PO QDAY 03/29/22 03/29/22 sulfamethoxazole 400 1 tab PO BID 03/29/22 03/29/22 mg-trimethoprim 80 mg tablet (Bactrim) tacrolimus 0.5 mg capsule, 1.5 mg PO Q12H 03/29/22 03/29/22 immediate-release (Prograf) torsemide 10 mg tablet 10 mg PO QAM 03/29/22 03/29/22 trazodone 100 mg tablet 100 mg PO QDAY 03/29/22 03/29/22 voriconazole 200 mg tablet (Vfend) 200 mg PO Q12H 03/29/22 03/29/22 Previous Rx's Medication Instructions Recorded hydrocodone 5 mg-acetaminophen 325 1 tab PO Q4-6H PRN pain #20 tabs 04/13/22 mg tablet Allergies Allergy/AdvReac Type Severity Reaction Status Date / Time cefixime Allergy Intermediate Diarrhea Verified 05/17/22 17:18 quetiapine Allergy Intermediate Edema Verified 05/17/22 17:18 ciprofloxacin Allergy Unknown Verified 05/17/22 17:18 citalopram Allergy Unknown Verified 05/17/22 17:18 Review of Systems Status of ROS: Reports: 10 or more systems reviewed and unremarkable except as noted in History and below PFSH PFSH Social History Smoking Status: Never smoker How often do you have a drink containing alcohol: never AUDIT-C Alcohol total score: 0 Non-prescribed substance use: denies use Exam Narrative: Exam Narrative: I find him resting in room 8 no apparent distress is pupils equal round reactive to light there is no scleral icterus redness TMs bilaterally are normal, oropharynx is normal, neck is supple full range of motion chest is clear bilaterally with no wheezing crackles in the bases bilaterally are noted, no dullness to percussion, and tactile fremitus is negative, his heart sounds are S1-S2 her normal there is no S3-S4 clicks murmurs or gallops, abdomen is soft, with scarring from previous liver transplant, Y-shaped incision well healed. Bowel sounds are normal, no CVA tenderness, moves all extremities independently well, has an AV fistula in his right brachial region, neurologically intact. Const: Vital Signs, click to edit/add: Vital Signs - 24 hr 05/17/22 17:18 05/17/22 17:28 Temperature 97.9 F Pulse Rate [Pulse Oximeter] 76 77 Respiratory Rate 24 24 Blood Pressure [Le ft Upper Arm] 144/85 H Pulse Oximetry 96 98 Oxygen Delivery Me thod Room Air Room Air Documenting provider has reviewed patient's vital signs: yes Course Reevaluation(s) Reevaluation #1: Went back and saw the patient he is feeling well, I went over his chest x-ray report with him, he thinks that this is a chronic finding. He does not think he needs a CT scan tonight given the stability of his vital signs when I am seeing here I would be in agreement. Do blood cultures we will see, given the fact that he is a dialysis patient I do not think he needs to wait around for urinalysis as he really says he does not pee at all. I have asked him and to follow up if he has any further issue with fevers chills sweats or worsening condition, he is comfortable with this. Time: 20:29 Vital Signs Vital signs: Initial Vital Signs Temperature Source Temporal Artery Scan 05/17/22 17:18 Pulse Rate 76 05/17/22 17:18 Pulse Rhythm 05/17/22 17:18 Respiratory Rate 24 05/17/22 17:18 Blood Pressure 144/85 H 05/17/22 17:18 Blood Pressure Mean 104 05/17/22 17:18 Blood Pressure Position Supine 05/17/22 17:18 Pulse Oximetry 96 05/17/22 17:18 Oxygen Delivery Method 05/17/22 17:18 Vital Signs Pulse Rate 76 05/17/22 17:18 Respiratory Rate 24 05/17/22 17:18 Blood Pressure 144/85 H 05/17/22 17:18 Pulse Oximetry 96 05/17/22 17:18 Oxygen Delivery Method 05/17/22 17:18 Temperature 97.9 F 05/17/22 17:28 Pulse Rate 77 05/17/22 17:28 Respiratory Rate 24 05/17/22 17:28 Blood Pressure 144/85 H 05/17/22 17:18 Pulse Oximetry 98 05/17/22 17:28 Oxygen Delivery Method 05/17/22 17:28 Medical Decision Making MDM Narrative Medical decision making narrative: Life-threatening differential diagnosis is include meningitis, encephalitis, pneumonia, intra-abdominal infection, bacteremia, other differential diagnosis include but are not limited to viral upper respiratory tract infection, strep, urinary tract infection, skin infection, osteomyelitis, influenza, fungal infections, diskitis, epidural abscess, or fever of unknown origin. Lab Data Lab results reviewed: Yes I reviewed the patient's lab results Labs: Lab Results 05/17/22 05/17/22 05/17/22 Range/Units 17:52 18:07 18:07 WBC 7.93 (4.50-11.00) K/uL RBC 3.12 L (4.30-5.90) m/uL Hgb 10.0 L (13.5-17.5) gm/dL Hct 31.0 L (37.0-53.0) % MCV 99 (80-100) fL MCH 32 (26-34) pg MCHC 32 (32-36) gm/dL RDW Coeff of Hilda 12.7 (11.5-15.5) % Plt Count 251 (140-440) K/uL Neut % (Auto) 80.5 H (42.0-72.0) % Lymph % (Auto) 10.3 L (20-44) % [place] % (Auto) 7.6 (0.0-11.0) % Eos % (Auto) 0.5 (0.0-7.0) % Baso % (Auto) 0.1 (0.0-3.0) % Neut # (Auto) 6.40 (1.7-7.0) K/uL Lymph # (Auto) 0.80 L (0.90-2.90) K/uL [place] # (Auto) 0.60 (0.00-0.90) K/UL Eos # (Auto) 0.04 (0.00-0.50) K/uL Baso # (Auto) 0.01 (0.00-0.30) K/uL Abs Immat Gran (auto) 0.08 (0.00-0.30) K/uL Imm/Tot Granulo (auto) 1.0 % Sodium (135-149) mmol/L Potassium (3.6-5.1) mmol/L Chloride (96-114) mmol/L Carbon Dioxide (20-32) mmol/L BUN (7-30) mg/dL Creatinine (0.5-1.5) mg/dL Estimated Creat Clear Estimated GFR ml/min Glucose (60-115) mg/dL Lactate (0.5-1.9) mmol/L Calcium (8.4-10.6) mg/dL Total Bilirubin (0.1-1.5) mg/dL Direct Bilirubin (0.0-0.5) mg/dL AST (12-35) U/L ALT (4-50) U/L Alkaline Phosphatase (40-150) U/L C-Reactive Protein (0.5-1.0) mg/dL Total Protein (6.0-8.3) g/dL Albumin (3.3-5.0) g/dL Procalcitonin Cancelled Urine Color (Yellow) Urine Appearance (Clear) Urine pH (5.0-8.5) Ur Specific Lena (1.000-1.030) Urine Protein (Negative) Urine Glucose (UA) (Negative) Urine Ketones (Negative) Urine Blood (Negative) Urine Nitrite (Negative) Urine Bilirubin (Negative) Urine Urobilinogen (0.2-1.0) Ur Leukocyte Esterase (Negative) SARS-CoV-2 (PCR) Negative SARS-CoV-2 (Negative) Influenza Type A (PCR) Negative PCR FLU A (Negative) Influenza Type B (PCR) Negative PCR FLU B (Negative) RSV (PCR) Negative PCR RSV (Negative) 05/17/22 05/17/22 05/17/22 Range/Units 18:07 18:07 20:00 WBC (4.50-11.00) K/uL RBC (4.30-5.90) m/uL Hgb (13.5-17.5) gm/dL Hct (37.0-53.0) % MCV (80-100) fL MCH (26-34) pg MCHC (32-36) gm/dL RDW Coeff of Hilda (11.5-15.5) % Plt Count (140-440) K/uL Neut % (Auto) (42.0-72.0) % Lymph % (Auto) (20-44) % [place] % (Auto) (0.0-11.0) % Eos % (Auto) (0.0-7.0) % Baso % (Auto) (0.0-3.0) % Neut # (Auto) (1.7-7.0) K/uL Lymph # (Auto) (0.90-2.90) K/uL [place] # (Auto) (0.00-0.90) K/UL Eos # (Auto) (0.00-0.50) K/uL Baso # (Auto) (0.00-0.30) K/uL Abs Immat Gran (auto) (0.00-0.30) K/uL Imm/Tot Granulo (auto) % Sodium 128 L (135-149) mmol/L Potassium 4.3 (3.6-5.1) mmol/L Chloride 94 L (96-114) mmol/L Carbon Dioxide 24 (20-32) mmol/L BUN 56 H (7-30) mg/dL Creatinine 4.3 H (0.5-1.5) mg/dL Estimated Creat Clear 16.67 Estimated GFR 14 ml/min Glucose 163 H (60-115) mg/dL Lactate 1.0 (0.5-1.9) mmol/L Calcium 8.2 L (8.4-10.6) mg/dL Total Bilirubin 0.6 (0.1-1.5) mg/dL Direct Bilirubin 0.4 (0.0-0.5) mg/dL AST 20 (12-35) U/L ALT 17 (4-50) U/L Alkaline Phosphatase 118 (40-150) U/L C-Reactive Protein 3.6 H (0.5-1.0) mg/dL Total Protein 6.6 (6.0-8.3) g/dL Albumin 4.0 (3.3-5.0) g/dL Procalcitonin 0.59 H Urine Color Yellow (Yellow) Urine Appearance Clear (Clear) Urine pH 7.0 (5.0-8.5) Ur Specific Lena 1.010 (1.000-1.030) Urine Protein 1+ A (Negative) Urine Glucose (UA) Negative (Negative) Urine Ketones Negative (Negative) Urine Blood Trace-lysed A (Negative) Urine Nitrite Negative (Negative) Urine Bilirubin Negative (Negative) Urine Urobilinogen 0.2 (0.2-1.0) Ur Leukocyte Esterase Negative (Negative) SARS-CoV-2 (PCR) (Negative) Influenza Type A (PCR) (Negative) Influenza Type B (PCR) (Negative) RSV (PCR) (Negative) Imaging Data Chest x-ray: Attestation: I have reviewed the pertinent imaging results. My impression: Patient: JOSE ALEJANDRO CUELLO Facility:?[facility] Patient ID:?[id number] Site Patient ID:?[id number]. Site :?[id number] Study:?XRay Chest 2V-05/17/2022 5:50:14 PM Ordering Physician:Newton Sullivan Final Report: INDICATION: Cough, liver transplant TECHNIQUE: Chest 2 views. COMPARISON: April 13, 2022 FINDINGS: Cardiovascular and mediastinum: Heart size and vasculature are normal in caliber and appearance. Mediastinum is within normal limits. Lungs and pleural spaces: There are some faint scattered opacities throughout both lungs. No sign of pleural effusion. No pneumothorax. Bones and soft tissues: No significant findings. IMPRESSION: Faint scattered opacities throughout both lungs could represent infection. Consider chest CT without IV contrast for further evaluation if clinically indicated. Dictated by Alena Garcia MD @ 05/17/2022 6:37:32 PM (Electronic Signature) Discharge Plan Discharge Clinical Impression: Cough, At risk for opportunistic infections Patient Disposition: Home, Self-Care Condition: Stable Instructions: Chronic Cough (ED) Additional Instructions: Home, rest, please call your sugarcane planter and confirm that the chest x-ray is the same. Return here if increasing fevers chills sweats or other issues, but your blood tests were reassuring today we will grow your blood to make sure that she do not have a raging infection. Prescriptions: No Action albuterol sulfate 90 mcg/actuation HFA aerosol inhaler 2 puff inhalation Q6H PRN aspirin [Adult Low Dose Aspirin] 81 mg tablet,delayed release (DR/EC) 81 mg PO QDAY atorvastatin 10 mg tablet 10 mg PO QDAY azelastine 137 mcg (0.1 %) aerosol,spray 1 spray intranasal BID Rx Instructions: administer into each nostril benzonatate 100 mg capsule 100 mg PO BID PRN budesonide [Pulmicort] 0.25 mg/2 mL suspension for nebulization 0.5 mg inhalation QDAY coenzyme Q10 100 mg capsule 100 mg PO QDAY ipratropium bromide 21 mcg (0.03 %) spray,non-aerosol 2 spray intranasal BID Rx Instructions: administer into each nostril lamotrigine [Lamictal] 200 mg tablet 200 mg PO BID levothyroxine 25 mcg capsule 25 mcg PO QDAY loratadine 10 mg tablet 10 mg PO QDAY montelukast [Singulair] 10 mg tablet 10 mg PO QDAY mycophenolate mofetil [CellCept] 500 mg tablet 500 mg PO Q12H nifedipine [Procardia XL] 30 mg tablet extended release 24hr 30 mg PO QDAY ondansetron HCl 4 mg tablet 4 mg PO Q8H prednisone 5 mg tablet 5 mg PO QDAY tacrolimus [Prograf] 0.5 mg capsule 1.5 mg PO Q12H torsemide 10 mg tablet 10 mg PO QAM trazodone 100 mg tablet 100 mg PO QDAY Trelegy Ellipta 200-62.5-25 mcg blister with device 1 inh inhalation QDAY sulfamethoxazole-trimethoprim [Bactrim] 400-80 mg tablet 1 tab PO BID voriconazole [Vfend] 200 mg tablet 200 mg PO Q12H Rx Instructions: administer on empty stomach, at least 1 hour before or after meal(s) hydrocodone-acetaminophen 5-325 mg tablet 1 tab PO Q4-6H PRN (Reason: pain) Qty: 20 0RF Follow Up/Referrals: Ryan Cole MD [Primary Care Provider] - Stand Alone Forms: DreamNotes Info Instructions
--- OUTSIDE RECORDS SUMMARY | 2022-05-17 18:38 | XMS_ITS | Encounter Summary ---
:1955 Author Organization [facility] Address [address] [place] [address] Care Team Providers Name Role Phone Elsewhere, Pcp Primary Care Provider Unavailable Encounter Details Date Type Department Care Team Description 05/31/2021 Documentation Division of Nephrology and Nicolasa Billingsley, Hypertension, Mandaen L.I.C.S. [facility], in [place], [address] [place] [address] [place] [phone] [place] [phone] [phone] Social History Tobacco Use Types Packs/Day Years [...] Date Recorded Male 05/16/2020 4:27 PM FIRE WATCHER documented as of this encounter Progress Notes Zee Billingsley L.I.C.S.W. - 05/31/2021 2:08 PM CST SUBJECTIVE Outpatient hemodialysis has been arranged for the patient as requested in [place], [place]. Social work was only able to leave the patient a voicemail with the below information. Social work will continue to try to reach him by phone to let him know that this has been arranged. OBJECTIVE Location: [facility] [address] [place] [address] Date & Time: FridayJun 01 - 1:30 p.m. ASSESSMENT / PLAN ASSESSMENT The patients outpatient hemodialysis has been arranged at [place], [place] as requested. A voicemail was left the the patient updating him regarding this. Social work will continue to try to reach him byphone to update him. PLAN Social work is available for supportive counseling and assistance as appropriate. Ion Gamboa 05/31/21 WATCHER documented in this encounter Plan of Treatment Upcoming Encounters Date Type Specialty Care Team Description 05/22/2022 Appointment Laboratory Medicine Angélica Granger P.A.-C. [address] [place] [phone] 05/23/2022 Clinical Admitting/Central Communication Scheduling 05/27/2022 Comprehensive Visit Orthopedic Surgery Markus Sams M.D., Ph.D. [address] [place] [phone] 05/29/2022 Office Visit Otorhinolaryngology Dex Matta APRN CDemetriusNFabrice., M.S.N. [address] [place] [phone] 05/29/2022 Office Visit Otorhinolaryngology Nadeem Maradiaga, Jennifer., M.S. [address] [place] [phone] 05/31/2022 Appointment Radiology Guilherme Matt MPAS, Edmundo, M.S. [address] [place] [phone] 06/05/2022 Appointment Laboratory Medicine Angélica Granger P.A.-C. [address] [place] [phone] 06/19/2022 Appointment Laboratory Medicine Angélica Granger P.A.-C. [address] [place] [phone] 07/03/2022 Appointment Laboratory Medicine Angélica Granger P.A.-C. [address] [place] [phone] 07/17/2022 Appointment Laboratory Medicine Angélica Granger P.A.-C. [address] [place] [phone] 07/31/2022 Appointment Laboratory Medicine Angélica Granger P.A.-C. [address] [place] [address], [place] [phone] 08/14/2022 Appointment Laboratory Medicine Angélica Granger P.A.-C. [address] [place] [phone] 08/28/2022 Appointment Laboratory Medicine Angélica Granger P.A.-C. [address] [place] [phone] documented as of this encounter Visit Diagnoses Not on filedocumented in this encounter Additional Health Concerns Infection Onset Date Last Indicated Resolved Time COVID19 Pending 05/31/2021 05/31/2021 05/31/2021 3:24 PM FIRE WATCHER Assessment Noted Time PHQ-9 Depression Total Score: 4 11/28/2020 10:17 AM CD T documented as of this encounter Care Teams Hyster Driver Relationship Specialty Start Date End Date Elsewhere, Pcp PCP - General Family Medicine 07/29/17 [facility] - Laboratory Medicine 04/12/20 [place] [phone] documented as of this encounter
--- OUTSIDE RECORDS SUMMARY | 2022-05-17 18:38 | XMS_ITS | Encounter Summary ---
:1955 Author Organization [facility] Address [address] [place] [address] Care Team Providers Name Role Phone Elsewhere, Pcp Primary Care Provider Unavailable Reason for Referral Transplant (Routine) - Closed Specialty Diagnoses / Procedures Referred By Contact Refer red To Contact Transplant Surgery / Diagnoses Transplant Liver (HCC) Medication Therapy Group Home Not Anticoagulant Chronic Cough Leonid Gonzalez [facility] Transplant [place]ie [address] [place] [address] Referral ID Status Reason Start Date Expiration Date Visits Requ ested Visits Authorized [id number] Closed 06/05/2021 06/05/2022 1 1 Scheduling Instructions Per Trung Plasencia- schedule with Trung nugent testing is complete. SPECIAL- please contact patient to sched lili. Please schedule testing/labs then follow-up with Trung Plasencia. Please sched lili first available. Thanks GENCY MEDICAL TECHNICIAN MRI/CAT/PET Scan (Routine) - Closed Specialty Diagnoses / Procedures Referred By Contact Refer red To Contact Radiology Diagnoses Transplant Liver (HCC) Medication Therapy Group Home Not Anticoagulant Chronic Cough Leonid Gonzalez M.D. [facility] Procedures CT Chest without IV Contrast [address] [place] [address] Referral ID Status Reason Start Date Expiration Date Visits Requ ested Visits Authorized [id number] Closed 06/05/2021 06/05/2022 1 1 GENCY MEDICAL TECHNICIAN Reason for Visit Reason Comments Care Coordination Encounter Details Date Type Department Care Team Description 06/01/2021 Clinical Sabine Gamez [facility] [place] Communication Center for Juanjo Brewer and [place] Clinical Regeneration [address] in [facility] [address] [facility] [phone] Social History Tobacco Use Types Packs/Day Years [...] Date Recorded Male 05/16/2020 4:27 PM EMERGENCY MEDICAL TECHNICIAN documented as of this encounter Miscellaneous Notes Telephone Encounter - Meena Aguilar - 06/05/2021 3:49 PM CST Called and spoke with patient. He is all set for 06/12. GENCY MEDICAL TECHNICIAN Telephone Encounter - Yolie Dubois R.N. - 06/01/2021 11:18 AM CST Images from the original note were not included. GENCY MEDICAL TECHNICIAN documented in this encounter Plan of Treatment Upcoming Encounters Date Type Specialty Care Team Description 05/22/2022 Appointment Laboratory Medicine Angélica Granger P.A.-C. [address] [place] [phone] 05/23/2022 Clinical Admitting/Central Communication Scheduling 05/27/2022 Comprehensive Visit Orthopedic Surgery Markus Sams M.D., Ph.D. [address] [place] [phone] 05/29/2022 Office Visit Otorhinolaryngology Dex Matta APRN, C.N.P., M.S.N. [address] [place] [phone] 05/29/2022 Office Visit Otorhinolaryngology Nadeem Maradiaga, P.A.-C., M.S. [address] [place] [phone] 05/31/2022 Appointment Radiology Guilherme Matt MPAS, P.Murtaza.-Arley., M.S. [address] [place] [phone] 06/05/2022 Appointment Laboratory Medicine Angélica Granger P.A.-C. [address] [place] [phone] 06/19/2022 Appointment Laboratory Medicine Angélica Granger P.A.-C. [address] [place] [phone] 07/03/2022 Appointment Laboratory Medicine Angélica Granger P.A.-C. [address] [place] [phone] 07/17/2022 Appointment Laboratory Medicine Angélica Granger P.A.-C. [address] [place] [phone] 07/31/2022 Appointment Laboratory Medicine Angélica Granger P.A.-C. [address] [place] [phone] 08/14/2022 Appointment Laboratory Medicine Angélica Granger P.A.-C. [address] [place] [phone] 08/28/2022 Appointment Laboratory Medicine Angélica Granger P.A.-C. [address] [place] [phone] Scheduled Orders Name Type Priority Associated Diagnoses Order S chedule Aspergillus Antigen, Microbiology Routine Transplant Liver Exp ected: Bronchoalveolar Lavage (HCC) 06/06/2021 Medication Therapy (Approxim ate), Group Home Not Expires: Anticoagulant 09/03/2022 Chronic Cough Scheduled Referrals Name Type Priority Associated Order Schedule Diagnoses Transplant Liver Outpatient Referral Routine Transplant Liver Expected: office visit (HCC) 06/06/2021 (clinic) Medication Therapy (Approxim ate), Lubrication Servicer Not Expires: Anticoagulant 09/03/2022 Chronic Cough documented as of this encounter Results CT Chest without IV Contrast (06/12/2021 10:05 AM EMERGENCY MEDICAL TECHNICIAN) Anatomical Region Laterality Modality Chest, Thoracic RST LOS, Thoracic ARZ LOS, Thoracic N/A Computed Tomography FLA LOS Specimen (Source) Anatomical Collection Method Collection Time Re ceived Time Location / / Volume Laterality 06/12/2021 10:23 AM EMERGENCY MEDICAL TECHNICIAN Impressions 06/12/2021 11:10 AM EMERGENCY MEDICAL TECHNICIAN While there are some areas of waxing and waning bilateral infectious/inflammatory bronchiolitis, t here is an overall progression of these findings. Narrative 06/12/2021 11:10 AM EMERGENCY MEDICAL TECHNICIAN EXAM: CT CHEST WITHOUT IV CONTRAST [...] PROCEDURES (ABNORMAL) Glucose, Fasting (06/12/2021 8:45 AM EMERGENCY MEDICAL TECHNICIAN) P athologist Signature Glucose, P 113 (H) 70 - 100 06/12/2021 DTL mg/dL 9:42 AM EMERGENCY MEDICAL TECHNICIAN Last Intake 13 hr 06/12/2021 DTL 9:27 AM EMERGENCY MEDICAL TECHNICIAN Specimen Anatomical Collection Method Collection Time Receive d Time (Source) Location / / Volume Laterality Blood (Blood, 06/12/2021 8:45 AM 06/12/20 9:27 Venous) EMERGENCY MEDICAL TECHNICIAN AM EMERGENCY MEDICAL TECHNICIAN Leonid Gonzalez M.D. LAB BLOOD NON ADD-ON Performing Organization Address City/State/ZIP Code Phon e Number [facility] - [address] [place], [place] [address] [facility] [place] [address] [facility] [address] (ABNORMAL) Comprehensive Metabolic Panel (06/12/2021 8:45 AM EMERGENCY MEDICAL TECHNICIAN) Analysis Performed At Patho logist Time Signature Potassium, S 3.9 3.6 - 5.2 06/12/2021 DTL mmol/L 9:50 AM EMERGENCY MEDICAL TECHNICIAN Sodium, S 131 (L) 135 - 145 06/12/2021 DTL mmol/L 9:50 AM EMERGENCY MEDICAL TECHNICIAN Chloride, S 97 (L) 98 - 107 06/12/2021 DTL mmol/L 9:50 AM EMERGENCY MEDICAL TECHNICIAN Bicarbonate, S 26 22 - 29 06/12/2021 DTL mmol/L 9:50 AM EMERGENCY MEDICAL TECHNICIAN Anion Gap 8 7 - 15 06/12/2021 DTL 9:50 AM EMERGENCY MEDICAL TECHNICIAN BUN (Blood Urea 22 8 - 24 06/12/2021 DTL Nitrogen), S mg/dL 9:50 AM EMERGENCY MEDICAL TECHNICIAN Creatinine 2.90 (H) 0.74 - 06/12/2021 DTL 1.35 mg/dL 9:50 AM EMERGENCY MEDICAL TECHNICIAN eGFR-Non 22 (L) >=60 06/12/2021 DTL Black/ mL/min/BSA 9:50 AM EMERGENCY MEDICAL TECHNICIAN [place] Comment: ----ADDITIONAL INFORMATION---- Estimated GFR calculated using the 2009 CKD_EPI creatinine equation. eGFR-Black/ 25 (L) >=60 mL/min/BSA 2020 9:50 AM EMERGENCY MEDICAL TECHNICIAN DTL Comment: ----ADDITIONAL INFORMATION---- Estimated GFR calculated using the 2009 CKD_EPI creatinine equation. Calcium, Total, S 8.2 (L) 8.8 - 10.2 mg/dL 06/12/2021 9:50 AM EMERGENCY MEDICAL TECHNICIAN DTL Glucose, S CANCELED mg/dL 06/12/2021 9:30 AM EMERGENCY MEDICAL TECHNICIAN DTL Comment: Test not performed. See Fasting Glucose result. Result canceled by the ancillary. Protein, Total, S 5.1 (L) 6.3 - 7.9 g/dL 06/12/2021 9:50 A M EMERGENCY MEDICAL TECHNICIAN DTL Albumin, S 3.3 (L) 3.5 - 5.0 g/dL 06/12/2021 9:50 AM EMERGENCY MEDICAL TECHNICIAN D TL Aspartate Aminotransferase 22 8 - 48 U/L 06/12/2021 9 :50 AM EMERGENCY MEDICAL TECHNICIAN DTL (AST), S Alkaline Phosphatase, S 121 40 - 129 U/L 06/12/2021 9: 50 AM EMERGENCY MEDICAL TECHNICIAN DTL Alanine Aminotransferase (ALT), 26 7 - 55 U/L 021 9:50 AM EMERGENCY MEDICAL TECHNICIAN DTL S Bilirubin, Total, S 0.3 <=1.2 mg/dL 06/12/2021 9:50 AM EMERGENCY MEDICAL TECHNICIAN DTL Specimen Anatomical Collection Method Collection Time Receive d Time (Source) Location / / Volume Laterality Blood (Blood, 06/12/2021 8:45 AM 06/12/20 9:30 Venous) EMERGENCY MEDICAL TECHNICIAN AM EMERGENCY MEDICAL TECHNICIAN Leonid Gonzalez M.D. LAB BLOOD ADD-ON Performing Organization Address City/State/ZIP Code Phon e Number [facility] - [address] [place], [place] [address] [facility] [place] [place] [address] [facility] [address] (ABNORMAL) Tacrolimus, B (06/12/2021 8:44 AM EMERGENCY MEDICAL TECHNICIAN) athologist Signature Tacrolimus, B 1.5 (L) 5.0-15.0 06/12/2021 [facility] (Trough) 3:26 PM EMERGENCY MEDICAL TECHNICIAN ng/mL Comment: ----ADDITIONAL INFORMATION---- Target steady-state trough concentration s vary depending on the type of transplant, concomitant immunosuppressio n, clinical/institutional protocols, and time post-transplant. Results should be interpreted in conjunction with this clinical information and any physic al signs/symptoms of rejection/toxicity. Testing performed by Liquid Chromatograp hy-Tandem Mass Spectrometry (LC-MS/MS). This test was developed and its performa nce characteristics determined by [facility] in a manner consistent with CLIA requirements. This test has not been cleared or approved by the U.S. Mer d and Drug Administration. Specimen Anatomical Collection Method Collection Time Receive d Time (Source) Location / / Volume Laterality Blood (Blood, 06/12/2021 8:44 AM 06/12/20 Venous) EMERGENCY MEDICAL TECHNICIAN 10:53 AM EMERGENCY MEDICAL TECHNICIAN Leonid Gonzalez M.D. LAB BLOOD NON ADD-ON Performing Organization Address City/State/ZIP Code Phon e Number [facility] [address] [place], [place] [address] [facility] [place] [address] Laboratory Medicine and Pathology [address] [place] (ABNORMAL) CBC without Differential (06/12/2021 8:44 AM EMERGENCY MEDICAL TECHNICIAN) Patholo gist Method Time Signature Hemoglobin 8.1 (L) 13.2 - 06/12/2021 DTL 16.6 g/dL 9:22 AM EMERGENCY MEDICAL TECHNICIAN Hematocrit 26.5 (L) 38.3 - 06/12/2021 DTL 48.6 % 9:22 AM EMERGENCY MEDICAL TECHNICIAN Erythrocytes 2.71 (L) 4.35 - 06/12/2021 DTL 5.65 9:22 AM EMERGENCY MEDICAL TECHNICIAN x10(12)/L MCV 97.8 78.2 - 06/12/2021 DTL 97.9 fL 9:22 AM EMERGENCY MEDICAL TECHNICIAN RBC Distrib Width 14.7 (H) 11.8 - 06/12/2021 DTL 14.5 % 9:22 AM EMERGENCY MEDICAL TECHNICIAN Platelet Count 184 135 - 317 06/12/2021 DTL x10(9)/L 9:22 AM EMERGENCY MEDICAL TECHNICIAN Leukocytes 4.0 3.4 - 9.6 06/12/2021 DTL x10(9)/L 9:22 AM EMERGENCY MEDICAL TECHNICIAN Specimen Anatomical Collection Method Collection Time Receive d Time (Source) Location / / Volume Laterality Blood (Blood, 06/12/2021 8:44 AM 06/12/20 9:13 Venous) EMERGENCY MEDICAL TECHNICIAN AM EMERGENCY MEDICAL TECHNICIAN Leonid Gonzalez M.D. LAB BLOOD ADD-ON Performing Organization Address City/State/ZIP Code Phon e Number [facility] - [address] [place], [place] [address] [facility] [place] [place] [address] [facility] [address] (1, 3) Ryvc-W-Mmacli (Fungitell), Serum (06/12/2021 8:44 AM EMERGENCY MEDICAL TECHNICIAN) [facility] Method Time Signature (1, 3) <31 <60 pg/mL 06/12/2021 [facility] Irvv-J-Pgtrfp, pg/mL 9:55 PM EMERGENCY MEDICAL TECHNICIAN Quantitative (1, 3) Negative Negative 06/12/2021 [facility] Dtmp-S-Mnmpjg, 9:55 PM EMERGENCY MEDICAL TECHNICIAN Qualitative Comment: No (1, 3) Yjce-C-Qjipcv detected. ?? This assay does not detect certain fungi , including Cryptococcus species, which produce very low levels of (1, 3) Zewu-J-Ujtjxh (BDG) and the Mucorales (e.g., Lichthemia, Mucor and Rhizopus), which are not known to produce BDG. Additionally, the yeast phase of Blastom yces dermatitidis produces little BDG and may not be detected by this assay. ----ADDITIONAL INFORMATION---- This assay was performed using the FDA-c leared Fungitell Assay ([facility], [place], [place], [place]), a [facility] HARRIET based on modification of the Limulus Amebocyte Lysate pathway. Specimen Anatomical Collection Method Collection Time Receive d Time (Source) Location / / Volume Laterality Blood (Blood, 06/12/2021 8:44 AM 06/12/20 Venous) EMERGENCY MEDICAL TECHNICIAN 10:55 AM EMERGENCY MEDICAL TECHNICIAN Leonid Gonzalez M.D. LAB MICROBIOLOGY - BLOOD ORD ERABLES Performing Organization Address City/State/ZIP Code Phon e Number [facility] [address] [place], [place] [address] SUPPORT CENTER [facility] [place] [address] Laboratory Medicine and Pathology [address] [place] documented in this encounter Visit Diagnoses Diagnosis Transplant Liver (HCC) - Primary Medication Therapy Group Home Not Anticoa gulant Chronic Cough Transplant Liver (HCC) Medication Therapy Group Home Not Anticoa gulant Chronic Cough documented in this encounter Additional Health Concerns Assessment Noted Time PHQ-9 Depression Total Score: 4 11/28/2020 10:17 AM CD T documented as of this encounter Care Teams Sheet Metal Fabricator Relationship Specialty Start Date End Date Elsewhere, Pcp PCP - General Family Medicine 07/29/17 [facility] - Laboratory Medicine 04/12/20 [place] [address] documented as of this encounter
--- OUTSIDE RECORDS SUMMARY | 2022-05-17 18:38 | XMS_ITS | Encounter Summary ---
:1955 Author Organization [facility] Address [address] [place] [address] Care Team Providers Name Role Phone Elsewhere, Pcp Primary Care Provider Unavailable Encounter Details Date Type Department Care Team Description 05/28/2021 Orders Only Division of Nephrology Mara Barry Kidney Disease and Hypertension in Padmini Hernandez RAMONA, Stage 4 Glomerular [place], [place] C.N.P., D.N.P. Filtration Rate 15-29 [address] [facility] (HCC) (Primary Dx) [place] [address] Social History Tobacco Use Types Packs/Day [...] at Date Recorded Male 05/16/2020 4:27 PM SPINNER OPEN END documented as of this encounter Plan of Treatment Upcoming Encounters Date Type Specialty Care Team Description 05/22/2022 Appointment Laboratory Medicine Angélica Granger P.A.-C. [address] [place] [phone] 05/23/2022 Clinical Admitting/Central Communication Scheduling 05/27/2022 Comprehensive Visit Orthopedic Surgery Markus Sams M.D., Ph.D. [address] [place] [phone] 05/29/2022 Office Visit Otorhinolaryngology Dex Matta APRN, C.N.P., M.S.N. [address] [place] [phone] 05/29/2022 Office Visit Otorhinolaryngology Nadeem Maradiaga, P.Murtaza.-Arley., M.S. [address] [place] [phone] 05/31/2022 Appointment Radiology Guilherme Matt MPAS, P.Murtaza.Marie., M.S. [address] [place] [phone] 06/05/2022 Appointment Laboratory Medicine Angélica Granger P.A.-C. [address] [place] [phone] 06/19/2022 Appointment Laboratory Medicine Angélica Granger P.A.-C. [address] [place] [phone] 07/03/2022 Appointment Laboratory Medicine Angélica Granger P.A.-C. [address] [place] [phone] 07/17/2022 Appointment Laboratory Medicine Angélica Granger P.A.-C. [address] [place] [phone] 07/31/2022 Appointment Laboratory Medicine Angélica Granger P.A.-C. [address] [place] [phone] 08/14/2022 Appointment Laboratory Medicine Angélica Granger P.A.-C. [address] [place] [phone] 08/28/2022 Appointment Laboratory Medicine Angélica Granger P.A.-C. [address] [place] [phone] documented as of this encounter Results (ABNORMAL) Renal Function Panel (05/29/2021 10:09 AM SPINNER OPEN END) Analysis Performed At [facility] Time Signature Potassium, P 4.2 3.6 - 5.2 05/29/2021 [facility] mmol/L 11:00 AM SPINNER OPEN END Sodium, P 129 (L) 135 - 145 05/29/2021 [facility] mmol/L 11:00 AM SPINNER OPEN END Chloride, P 97 (L) 98 - 107 05/29/2021 [facility] mmol/L 11:00 AM SPINNER OPEN END Bicarbonate, P 20 (L) 22 - 29 05/29/2021 [facility] mmol/L 11:00 AM SPINNER OPEN END Anion Gap, P 12 7 - 15 05/29/2021 [facility] 11:00 AM SPINNER OPEN END BUN (Blood Urea 47 (H) 8 - 24 05/29/2021 [facility] Nitrogen), P mg/dL 11:00 AM SPINNER OPEN END Creatinine 3.95 (H) 0.74 - 05/29/2021 [facility] 1.35 mg/dL 11:00 AM SPINNER OPEN END eGFR-Black/Afri 17 (L) >=60 05/29/2021 [facility] can [place] mL/min/BSA 11:00 AM SPINNER OPEN END Comment: ----ADDITIONAL INFORMATION---- Estimated GFR calculated using the 2009 CKD_EPI creatinine equation. eGFR Non-Black/ <15 (L) >=60 mL/min/BSA 05/29/2021 11:00 AM [facility] [place] SPINNER OPEN END Comment: ----ADDITIONAL INFORMATION---- Estimated GFR calculated using the 2009 CKD_EPI creatinine equation. Calcium, Total, P 8.2 (L) 8.8 - 10.2 mg/dL 05/29/2021 11:0 0 AM SPINNER OPEN END [facility] Glucose, P CANCELED mg/dL 05/29/2021 10:11 AM SPINNER OPEN END [facility] Comment: Test not performed. See Fasting Glucose result. Result canceled by the ancillary. Albumin, P 3.3 (L) 3.5 - 5.0 g/dL 05/29/2021 11:00 AM SPINNER OPEN END [facility] Phosphorus (Inorganic), P 3.3 2.5 - 4.5 mg/dL 05/29/20 11:00 AM SPINNER OPEN END [facility] Specimen Anatomical Collection Method Collection Time Receive d Time (Source) Location / / Volume Laterality Blood (Blood, 05/29/2021 10:09 05/29/2021 Venous) AM SPINNER OPEN END 10:10 AM SPINNER OPEN END Padmini Barry APRN C.N.P., D.N.P. LAB BLOOD AD D-ON Performing Organization Address City/State/ZIP Code Phon e Number [address] [address] [place] [address] System in [place] [address] documented in this encounter Visit Diagnoses Diagnosis Chronic Kidney Disease Stage 4 Glomerula r Filtration Rate 15-29 (HCC) - Primary documented in this encounter Additional Health Concerns Assessment Noted Time PHQ-9 Depression Total Score: 4 11/28/2020 10:17 AM CD T documented as of this encounter Care Teams Tetryl Blender Operator Relationship Specialty Start Date End Date Elsewhere, Pcp PCP - General Family Medicine 07/29/17 [facility] - Laboratory Medicine 04/12/[address] [phone] documented as of this encounter
--- OUTSIDE RECORDS SUMMARY | 2022-05-17 18:38 | XMS_ITS | Encounter Summary ---
:1955 Author Organization [facility] Address [address] [place] [address] Care Team Providers Name Role Phone Elsewhere, Pcp Primary Care Provider Unavailable Encounter Details Date Type Department Care Team Description 05/29/2021 Hospital Encounter Department of [place], Transpl ant Liver (HCC); Laboratory Medicine Padmini Hernandez APRN, Medica tion Therapy Leather Staker Not Anticoagulant; in [place], C.N.P., D.N.P. 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 Medication Therapy Leather Staker Not Anticoagulant Spiriva Respimat 2.5 INHALE 2 PUFFS BY 4 g 0 01/09/20 21 07/26/2021 mcg/actuation inhaler MOUTH DAILY tacrolimus (PROGRAF) Take 2 capsules (1 360 capsule 3 202007/16/2021 0.5 mg mg total) by mouth 2 capsuleIndications: (two) times a day. Transplant Liver (HCC), Medication Therapy Leather Staker Not Anticoagulant UNABLE TO FIND by nasal 0 10/12/2021 (alternating) route 2 (two) times a day. Azelastine 1mg to Sinus Rinse twice daily. [facility] documented as of this encounter Plan of Treatment Upcoming Encounters Date Type Specialty Care Team Description 05/22/2022 Appointment Laboratory Medicine Angélica Granger P.A.-C. [address] [place] [phone] 05/23/2022 Clinical Admitting/Central Communication Scheduling 05/27/2022 Comprehensive Visit Orthopedic Surgery Markus Sams M.D., Ph.D. [address] [place] [phone] 05/29/2022 Office Visit Otorhinolaryngology Dex Matta APRN, C.N.P., M.S.N. [address] [place] [phone] 05/29/2022 Office Visit Otorhinolaryngology Nadeem Maradiaga, P.A.-C., M.S. [address] [place] [phone] 05/31/2022 Appointment Radiology Guilherme Matt MPAS, P.Murtaza.Marie., M.S. [address] [place] [phone] 06/05/2022 Appointment Laboratory Medicine Angélica Granger P.A.-C. [address] [place] [phone] 06/19/2022 Appointment Laboratory Medicine Angélica Granger P.A.-C. [address] [place] [phone] 07/03/2022 Appointment Laboratory Medicine Angélica Granger P.A.-C. [address] [place] [phone] 07/17/2022 Appointment Laboratory Medicine Angélica Granger P.A.-C. [address] [place] [phone] 07/31/2022 Appointment Laboratory Medicine Angélica Granger P.A.-C. [address] [place] [phone] 08/14/2022 Appointment Laboratory Medicine Angélica Granger P.A.-C. [address] [place] [phone] 08/28/2022 Appointment Laboratory Medicine Angélica Granger P.A.-C. [address] [place] [phone] documented as of this encounter Procedures Procedure Name Priority Date/Time Associated Diagnosis Comme nts MORPHOLOGY EVALUATION Routine 05/29/2021 10:09 Re sults for this AM LUNCH TRUCK OPERATOR procedure are i n the results section. RENAL FUNCTION PANEL, Routine 05/29/2021 10:09 Chronic Kidney Results for this S AM LUNCH TRUCK OPERATOR Disease Stage 4 procedure ar e in Glomerular Filtration the re sults Rate 15-29 (HCC) section. QUANTIFERON-TB GOLD Routine 05/29/2021 10:09 Chronic Kidney Re sults for this PLUS, B AM LUNCH TRUCK OPERATOR Disease Stage 4 procedure ar e in Glomerular Filtration the re sults Rate 15-29 (HCC) section. TACROLIMUS LEVEL, B Routine 05/29/2021 10:09 Transplant Liver Results for this AM LUNCH TRUCK OPERATOR (HCC) procedure are in Medication Therapy the resul ts Leather Staker Not section. Anticoagulant HEPATITIS B SURFACE Routine 05/29/2021 10:09 Chronic Kidney Re sults for this ANTIGEN AM LUNCH TRUCK OPERATOR Disease Stage 4 procedure ar e in Glomerular Filtration the re sults Rate 15-29 (HCC) section. CBC WITH Routine 05/29/2021 10:09 Transplant Liver Results for this DIFFERENTIAL, B AM LUNCH TRUCK OPERATOR (HCC) procedure are in Medication Therapy the resul ts Assisted Not section. Anticoagulant GLUCOSE, FASTING, S/P Routine 05/29/2021 10:09 Transplant Live r Results for this AM LUNCH TRUCK OPERATOR (HCC) procedure are in Medication Therapy the resul ts Leather Staker Not section. Anticoagulant COMPREHENSIVE Routine 05/29/2021 10:09 Transplant Liver Result s for this METABOLIC PANEL, S/P AM LUNCH TRUCK OPERATOR (HCC) procedure are in Medication Therapy the resul ts Assisted Not section. Anticoagulant documented in this encounter Results (ABNORMAL) Morphology Evaluation (05/29/2021 10:09 AM LUNCH TRUCK OPERATOR) Patholo gist Method Time Signature RBC Morphology See 05/29/2021 CNFL Specific 11:09 AM Findings LUNCH TRUCK OPERATOR PLT Morphology Normal 05/29/2021 CNFL 11:09 AM LUNCH TRUCK OPERATOR PLT Estimate Adequate Adequate 05/29/2021 CNFL 11:09 AM LUNCH TRUCK OPERATOR Anisocytosis Slight (A) 05/29/2021 CNFL 11:09 AM LUNCH TRUCK OPERATOR Reactive/Atypical Present (A) Not Seen 05/29/2021 CNFL Lymphocytes 11:09 AM LUNCH TRUCK OPERATOR Dacrocytes Slight (A) Not Seen 05/29/2021 CNFL 11:09 AM LUNCH TRUCK OPERATOR Echinocytes Slight (A) Not Seen 05/29/2021 CNFL 11:09 AM LUNCH TRUCK OPERATOR Macrocytosis Slight (A) Not Seen 05/29/2021 CNFL 11:09 AM LUNCH TRUCK OPERATOR Microcytosis Slight (A) Not Seen 05/29/2021 CNFL 11:09 AM LUNCH TRUCK OPERATOR Poikilocytosis Slight (A) Not Seen 05/29/2021 CNFL 11:09 AM LUNCH TRUCK OPERATOR Specimen Anatomical Collection Method Collection Time Receive d Time (Source) Location / / Volume Laterality Blood 05/29/2021 10:09 05/29/2021 AM LUNCH TRUCK OPERATOR 10:11 AM LUNCH TRUCK OPERATOR Leonid Gonzalez M.D. LAB BLOOD ADD-ON Performing Organization Address City/State/ZIP Code Phon e Number [facility]- [address] [place] [address] [place] [address] System in [place] [address] [address] Hepatitis B Surface Antigen (05/29/2021 10:09 AM LUNCH TRUCK OPERATOR) Patholo gist Method Time Signature HBs Antigen, Nonreactive Nonreactive 05/29/2021 ECLR S 4:51 PM LUNCH TRUCK OPERATOR Comment: Biotin has been identified by the [...] (Blood, 05/29/2021 10:09 05/29/2021 4:02 Venous) AM LUNCH TRUCK OPERATOR PM LUNCH TRUCK OPERATOR Padmini Barry APRN C.N.P., D.N.P. LAB MICROBIO LOGY - BLOOD ORDERABLES Performing Organization Address City/State/ZIP Code Phon e Number [facility]- [address] [place] [address] [phone] [facility] [place] [address] [address] QuantiFERON-Tb Gold Plus, Blood (05/29/2021 10:09 AM LUNCH TRUCK OPERATOR) P athologist Signature QuantiFERON-TB Negative Negative 05/30/2021 ECLR Gold Plus 2:09 PM LUNCH TRUCK OPERATOR Result Comment: No interferon-gamma response to M. [...] Nil Result 0.01 IU/mL 05/30/2021 2:09 PM LUNCH TRUCK OPERATOR ECLR TB2 Ag minus Nil Result 0.00 IU/mL 05/30/2021 2:09 PM LUNCH TRUCK OPERATOR ECLR Mitogen minus Nil Result 3.94 IU/mL 05/30/2021 2:09 PM LUNCH TRUCK OPERATOR ECLR Nil Result 0.57 IU/mL 05/30/2021 2:09 PM LUNCH TRUCK OPERATOR ECLR Specimen Anatomical Collection Method Collection Time Receive d Time (Source) Location / / Volume Laterality Blood (Blood, 05/29/2021 10:09 05/29/2021 4:02 Venous) AM LUNCH TRUCK OPERATOR PM LUNCH TRUCK OPERATOR Narrative [facility]- [facility] - 05/30/2021 2:09 PM LUNCH TRUCK OPERATOR Specimen Information: Specimen ID: [id number] Specimen Type: Blood Specimen Collection Start Date: 05/29/20 10:09 AM Specimen Received Date: 05/29/2021 ??4:0 2 PM Specimen ID: [id number] Specimen Type: Blood Specimen Collection Start Date: 05/29/20 10:09 AM Specimen Received Date: 05/29/2021 ??4:0 2 PM Specimen ID: [id number] Specimen Type: Blood Specimen Collection Start Date: 05/29/20 10:09 AM Specimen Received Date: 05/29/2021 ??4:0 3 PM Specimen ID: [id number] Specimen Type: Blood Specimen Collection Start Date: 05/29/20 10:09 AM Specimen Received Date: 05/29/2021 ??4:0 3 PM Padmini Barry APRN, C.N.P., D.N.P. LAB MICROBIO LOGY - BLOOD ORDERABLES Performing Organization Address City/State/ZIP Code Phon e Number [facility]- [address] [place] [phone] [facility] [place] [address] System [address] (ABNORMAL) Renal Function Panel (05/29/2021 10:09 AM LUNCH TRUCK OPERATOR) Analysis Performed At Patho logist Time Signature Potassium, P 4.2 3.6 - 5.2 05/29/2021 CNFL mmol/L 11:00 AM LUNCH TRUCK OPERATOR Sodium, P 129 (L) 135 - 145 05/29/2021 CNFL mmol/L 11:00 AM LUNCH TRUCK OPERATOR Chloride, P 97 (L) 98 - 107 05/29/2021 CNFL mmol/L 11:00 AM LUNCH TRUCK OPERATOR Bicarbonate, P 20 (L) 22 - 29 05/29/2021 CNFL mmol/L 11:00 AM LUNCH TRUCK OPERATOR Anion Gap, P 12 7 - 15 05/29/2021 CNFL 11:00 AM LUNCH TRUCK OPERATOR BUN (Blood Urea 47 (H) 8 - 24 05/29/2021 CNFL Nitrogen), P mg/dL 11:00 AM LUNCH TRUCK OPERATOR Creatinine 3.95 (H) 0.74 - 05/29/2021 CNFL 1.35 mg/dL 11:00 AM LUNCH TRUCK OPERATOR eGFR-Black/Afri 17 (L) >=60 05/29/2021 CNFL can [place] mL/min/BSA 11:00 AM LUNCH TRUCK OPERATOR Comment: ----ADDITIONAL INFORMATION---- Estimated GFR calculated using the 2009 CKD_EPI creatinine equation. eGFR Non-Black/ <15 (L) >=60 mL/min/BSA 05/29/2021 11:00 AM CNFL [place] LUNCH TRUCK OPERATOR Comment: ----ADDITIONAL INFORMATION---- Estimated GFR calculated using the 2009 CKD_EPI creatinine equation. Calcium, Total, P 8.2 (L) 8.8 - 10.2 mg/dL 05/29/2021 11:0 0 AM LUNCH TRUCK OPERATOR CNFL Glucose, P CANCELED mg/dL 05/29/2021 10:11 AM LUNCH TRUCK OPERATOR CNFL Comment: Test not performed. See Fasting Glucose result. Result canceled by the ancillary. Albumin, P 3.3 (L) 3.5 - 5.0 g/dL 05/29/2021 11:00 AM LUNCH TRUCK OPERATOR CNFL Phosphorus (Inorganic), P 3.3 2.5 - 4.5 mg/dL 05/29/20 11:00 AM LUNCH TRUCK OPERATOR CNWY Specimen Anatomical Collection Method Collection Time Receive d Time (Source) Location / / Volume Laterality Blood (Blood, 05/29/2021 10:09 05/29/2021 Venous) AM LUNCH TRUCK OPERATOR 10:10 AM LUNCH TRUCK OPERATOR Padmini Hernandez Janette Barry APRNNDemetriusPDemetrius, Bashir.NDemetriusPDemetrius LAB BLOOD AD D-ON Performing Organization Address City/[facility] Phon e Number [address] [address] [place] [address] (ABNORMAL) Tacrolimus, B (05/29/2021 10:09 AM LUNCH TRUCK OPERATOR) athologist Signature Tacrolimus, B 1.6 (L) 5.0-15.0 05/30/2021 [facility] (Trough) 10:21 AM LUNCH TRUCK OPERATOR ng/mL Comment: ----ADDITIONAL INFORMATION---- Target steady-state trough concentration s vary depending on the type of transplant, concomitant immunosuppressio n, clinical/institutional protocols, and time post-transplant. Results should be interpreted in conjunction with this clinical information and any physic al signs/symptoms of rejection/toxicity. Testing performed by Liquid Chromatograp hy-Tandem Mass Spectrometry (LC-MS/MS). This test was developed and its performa nce characteristics determined by [facility] in a manner consistent with CLIA requirements. This test has not been cleared or approved by the U.S. Mer d and Drug Administration. Specimen Anatomical Collection Method Collection Time Receive d Time (Source) Location / / Volume Laterality Blood (Blood, 05/29/2021 10:09 05/30/2021 6:49 Venous) AM LUNCH TRUCK OPERATOR AM LUNCH TRUCK OPERATOR Leonid Gonzalez M.D. LAB BLOOD NON ADD-ON Performing Organization Address City/State/ZIP Code Phon e Number [facility] [address] [place], [place] [address] [place] [address] C[facility] [place] [address] Laboratory Medicine and Pathology [address] [place] (ABNORMAL) Glucose, Fasting (05/29/2021 10:09 AM LUNCH TRUCK OPERATOR) P athologist Signature Glucose, P 112 (H) 70 - 100 05/29/2021 CNFL mg/dL 10:58 AM LUNCH TRUCK OPERATOR Last Intake 16 hr 05/29/2021 CNFL 10:10 AM LUNCH TRUCK OPERATOR Specimen Anatomical Collection Method Collection Time Receive d Time (Source) Location / / Volume Laterality Blood (Blood, 05/29/2021 10:09 05/29/2021 Venous) AM LUNCH TRUCK OPERATOR 10:10 AM LUNCH TRUCK OPERATOR Leonid Gonzalez M.D. LAB BLOOD NON ADD-ON Performing Organization Address City/State/[facility] Code Phon e Number [address] [phone] [place] [address] System [address] (ABNORMAL) Comprehensive Metabolic Panel (05/29/2021 10:09 AM LUNCH TRUCK OPERATOR) Analysis Performed At Patho logist Time Signature Potassium, P 4.2 3.6 - 5.2 05/29/2021 CNFL mmol/L 11:00 AM LUNCH TRUCK OPERATOR Sodium, P 129 (L) 135 - 145 05/29/2021 CNFL mmol/L 11:00 AM LUNCH TRUCK OPERATOR Chloride, P 97 (L) 98 - 107 05/29/2021 CNFL mmol/L 11:00 AM LUNCH TRUCK OPERATOR Bicarbonate, P 20 (L) 22 - 29 05/29/2021 CNFL mmol/L 11:00 AM LUNCH TRUCK OPERATOR Anion Gap, P 12 7 - 15 05/29/2021 CNFL 11:00 AM LUNCH TRUCK OPERATOR BUN (Blood Urea 47 (H) 8 - 24 05/29/2021 CNFL Nitrogen), P mg/dL 11:00 AM LUNCH TRUCK OPERATOR Creatinine 3.95 (H) 0.74 - 05/29/2021 CNFL 1.35 mg/dL 11:00 AM LUNCH TRUCK OPERATOR eGFR-Black/Afri 17 (L) >=60 05/29/2021 CNFL can [place] mL/min/BSA 11:00 AM LUNCH TRUCK OPERATOR Comment: ----ADDITIONAL INFORMATION---- Estimated GFR calculated using the 2009 CKD_EPI creatinine equation. eGFR Non-Black/ <15 (L) >=60 mL/min/BSA 05/29/2021 11:00 AM CNFL [place] LUNCH TRUCK OPERATOR Comment: ----ADDITIONAL INFORMATION---- Estimated GFR calculated using the 2009 CKD_EPI creatinine equation. Calcium, Total, P 8.2 (L) 8.8 - 10.2 mg/dL 05/29/2021 11:0 0 AM LUNCH TRUCK OPERATOR CNFL Glucose, P CANCELED mg/dL 05/29/2021 10:11 AM LUNCH TRUCK OPERATOR CNFL Comment: Test not performed. See Fasting Glucose result. Result canceled by the ancillary. Protein, Total, P 5.5 (L) 6.3 - 7.9 g/dL 05/29/2021 11:00 AM LUNCH TRUCK OPERATOR CNFL Albumin, P 3.3 (L) 3.5 - 5.0 g/dL 05/29/2021 11:00 AM LUNCH TRUCK OPERATOR CNFL Aspartate Aminotransferase 45 8 - 48 U/L 05/29/2021 1 1:00 AM LUNCH TRUCK OPERATOR CNFL (AST), P Alkaline Phosphatase, P 108 40 - 129 U/L 05/29/2021 11 :00 AM LUNCH TRUCK OPERATOR CNFL Alanine Aminotransferase 40 7 - 55 U/L 05/29/2021 11: 00 AM LUNCH TRUCK OPERATOR CNFL (ALT), P Bilirubin, Total, P 0.2 <=1.2 mg/dL 05/29/2021 11:00 A M LUNCH TRUCK OPERATOR CNFL Specimen Anatomical Collection Method Collection Time Receive d Time (Source) Location / / Volume Laterality Blood (Blood, 05/29/2021 10:09 05/29/2021 Venous) AM LUNCH TRUCK OPERATOR 10:10 AM LUNCH TRUCK OPERATOR Leonid Gonzalez M.D. LAB BLOOD ADD-ON Performing Organization Address City/State/ZIP Code Phon e Number [facility]- [address] [place] [phone] [place] [address] System [address] (ABNORMAL) CBC with Differential, Blood (05/29/2021 10:09 AM LUNCH TRUCK OPERATOR) [facility] gist Method Time Signature Hemoglobin 7.6 (L) 13.2 - 05/29/2021 CNFL 16.6 g/dL 11:08 AM LUNCH TRUCK OPERATOR Hematocrit 24.2 (L) 38.3 - 05/29/2021 CNFL 48.6 % 11:08 AM LUNCH TRUCK OPERATOR Erythrocytes 2.48 (L) 4.35 - 05/29/2021 CNFL 5.65 11:08 AM LUNCH TRUCK OPERATOR x10(12)/L MCV 97.6 78.2 - 05/29/2021 CNFL 97.9 fL 11:08 AM LUNCH TRUCK OPERATOR RBC Distrib Width 13.8 11.8 - 05/29/2021 CNFL 14.5 % 11:08 AM LUNCH TRUCK OPERATOR Platelet Count 209 135 - 317 05/29/2021 CNFL x10(9)/L 11:08 AM LUNCH TRUCK OPERATOR Leukocytes 3.2 (L) 3.4 - 9.6 05/29/2021 CNFL x10(9)/L 11:08 AM LUNCH TRUCK OPERATOR Neutrophils 2.37 1.56 - 05/29/2021 CNFL 6.45 11:08 AM LUNCH TRUCK OPERATOR x10(9)/L Lymphocytes 0.35 (L) 0.95 - 05/29/2021 CNFL 3.07 11:08 AM LUNCH TRUCK OPERATOR x10(9)/L Monocytes 0.33 0.26 - 05/29/2021 CNFL 0.81 11:08 AM LUNCH TRUCK OPERATOR x10(9)/L Eosinophils 0.09 0.03 - 05/29/2021 CNFL 0.48 11:08 AM LUNCH TRUCK OPERATOR x10(9)/L Basophils 0.02 0.01 - 05/29/2021 CNFL 0.08 11:08 AM LUNCH TRUCK OPERATOR x10(9)/L Specimen Anatomical Collection Method Collection Time Receive d Time (Source) Location / / Volume Laterality Blood (Blood, 05/29/2021 10:09 05/29/2021 Venous) AM LUNCH TRUCK OPERATOR 10:11 AM LUNCH TRUCK OPERATOR Leonid Gonzalez M.D. LAB BLOOD ADD-ON Performing Organization Address City/State/ZIP Code Phon e Number [facility]- [address] [place] [address] [place] [address] [place] [address] System [address] documented in this encounter Visit Diagnoses Diagnosis Transplant Liver (HCC) Medication Therapy Assisted Not Anticoa gulant Chronic Kidney Disease Stage 4 Glomerula r Filtration Rate 15-29 (HCC) documented in this encounter Additional Health Concerns Assessment Noted Time PHQ-9 Depression Total Score: 4 11/28/2020 10:17 AM CD T documented as of this encounter Care Teams Contact Lens Technician Relationship Specialty Start Date End Date Elsewhere, Pcp PCP - General Family Medicine 07/29/17 [facility] - Laboratory Medicine 04/12/[address] [address] documented as of this encounter
--- OUTSIDE RECORDS SUMMARY | 2022-05-17 18:38 | XMS_ITS | Encounter Summary ---
:1955 Author Organization [facility] Address [address] [place] [address] Care Team Providers Name Role Phone Elsewhere, Pcp Primary Care Provider Unavailable Encounter Details Date Type Department Care Team Description 06/01/2021 Orders Only Division of Nephrology Elissa Wilcox, Chron ic Failure Renal and Hypertension, ROAD TRAFFIC CONTROLLER, C.N.P. 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 [address] [place] [phone] 05/23/2022 Clinical Admitting/Central Communication Scheduling 05/27/2022 Comprehensive Visit Orthopedic Surgery Markus Sams M.D., Ph.D. [address] [place] [phone] 05/29/2022 Office Visit Otorhinolaryngology Dex Matta, ROAD TRAFFIC CONTROLLER, C.N.P., M.S.N. [address] [place] [phone] 05/29/2022 Office Visit Otorhinolaryngology Nadeem Maradiaga, P.Murtaza.-C., M.S. [address] [place] [phone] 05/31/2022 Appointment Radiology Guilherme Matt, RASTA, PMaryanne., M.S. [address] [place] [address] [phone] 06/05/2022 Appointment Laboratory Medicine Angélica Granger P.A.-C. [address] [place] [phone] 06/19/2022 Appointment Laboratory Medicine Angélica Granger P.A.-C. [address] [place] [phone] 07/03/2022 Appointment Laboratory Medicine Angélica Granger P.A.-C. [address] [place] [address] [phone] 07/17/2022 Appointment Laboratory Medicine Angélica Granger P.A.-C. [address] [place] [address] [phone] 07/31/2022 Appointment Laboratory Medicine Angélica Granger P.A.-C. [address] [place] [address] [phone] 08/14/2022 Appointment Laboratory Medicine Angélica Granger P.A.-C. [address] [place] [address] [phone] 08/28/2022 Appointment Laboratory Medicine Angélica Granger P.A.-C. [address] [place] [address] [phone] Scheduled Orders Name Type Priority Associated Diagnoses [...] documented as of this encounter Care Teams Piling Cutter Relationship Specialty Start Date End Date Elsewhere, Pcp PCP - General Family Medicine 07/29/17 [facility] - Laboratory Medicine 04/12/[address] [address] documented as of this encounter
--- OUTSIDE RECORDS SUMMARY | 2022-05-17 18:38 | XMS_ITS | Encounter Summary ---
:1955 Author Organization [facility] Address [address] [place] [phone] Care Team Providers Name Role Phone Elsewhere, Pcp Primary Care Provider Unavailable Reason for Visit Transplant (Routine) - Closed Specialty Diagnoses / Procedures Referred By Contact Refer red To Contact Transplant Surgery / Diagnoses Transplant Liver (HCC) Medication Therapy Business Services Director Not Anticoagulant [facility] [place] [address] [place] [phone] Referral ID Status Reason Start Date Expiration Date Visits Requ ested Visits Authorized [id number] Closed 05/28/2021 05/28/2022 1 1 Encounter Details Date Type Department Care Team Description 05/31/2021 Office Visit Yovani Khan M.D. [address] [place] [address] [phone] Transplant Liver (HCC); Angel Zepeda M.D. [address] [place] [address] [phone] Medication Therapy Alf Not Anticoa gulant Transplantation and Clinical Regeneration in [place], [place] [address] [place], [place] [phone] Social History Tobacco Use Types Packs/Day [...] 12/15/2021 organizations such as jew groups, unions, fraiLumen or athletic groups, or school groups? How [...] at Date Recorded Male 05/16/2020 4:27 PM LIFTER documented as of this encounter Progress Notes [...] #1 Transplant Liver (HCC) #2 Medication Therapy Alf Not Anticoagulant # volume overload # uremia [...] of C diff infection do not improve. Data Integrity Analyst Dr. Emmanuel. ER Angel Emmanuel M.D. - 05/31/2021 11:00 AM [...] for volume overload in the setting of [id number] renal failure. Unfortunately, his kidney function has [...] prednisone use. Details per Dr. Schuster's note. ER documented in this encounter Plan of Treatment Upcoming Encounters Date Type Specialty Care Team Description 05/22/2022 Appointment Laboratory Medicine Angélica Granger P.A.-C. [address] [place] [phone] 05/23/2022 Clinical Admitting/Central Communication Scheduling 05/27/2022 Comprehensive Visit Orthopedic Surgery Markus Sams M.D., Ph.D. [address] [place] [phone] 05/29/2022 Office Visit Otorhinolaryngology Dex Matta APRN, C.N.P., M.S.N. [address] [place] [phone] 05/29/2022 Office Visit Otorhinolaryngology Nadeem Maradiaga, P.Tom., M.S. [address] [place] [phone] 05/31/2022 Appointment Radiology Guilherme Matt, RASTA, PMaryanne., M.S. [address] [place] [phone] 06/05/2022 Appointment Laboratory Medicine Angélica Granger P.A.-C. [address] [place] [phone] 06/19/2022 Appointment Laboratory Medicine Angélica Granger P.A.-C. [address] [place] [phone] 07/03/2022 Appointment Laboratory Medicine Angélica Granger P.A.-C. [address] [place] [phone] 07/17/2022 Appointment Laboratory Medicine Angélica Granegr P.A.-C. [address] [place] [phone] 07/31/2022 Appointment Laboratory Medicine Angélica Granger P.A.-C. [address] [place] [phone] 08/14/2022 Appointment Laboratory Medicine Angélica Granger P.A.-C. [address] [place] [phone] 08/28/2022 Appointment Laboratory Medicine Angélica Granger P.A.-C. [address] [place] [phone] documented as of this encounter Visit Diagnoses Diagnosis Transplant Liver (HCC) Medication Therapy Business Services Director Not Anticoa gulant documented in this encounter Additional Health Concerns Infection Onset Date Last Indicated Resolved Time COVID19 Pending 05/31/2021 05/31/2021 05/31/2021 3:24 PM LIFTER Assessment Noted Time PHQ-9 Depression Total Score: 4 11/28/2020 10:17 AM CD T documented as of this encounter Care Teams Programmer Or Analyst Relationship Specialty Start Date End Date Elsewhere, Pcp PCP - General Family Medicine 07/29/17 [facility] - Laboratory Medicine 04/12/[address] [address] documented as of this encounter
--- OUTSIDE RECORDS SUMMARY | 2022-05-17 18:38 | XMS_ITS | Encounter Summary ---
:1955 Author Organization [facility] Address [address] [place] [address] Care Team Providers Name Role Phone Elsewhere, Pcp Primary Care Provider Unavailable Encounter Details Date Type Department Care Team Description 05/30/2021 Documentation Division of Nephrology and Lina Sepulveda R.N. 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 - 05/30/2021 10:09 AM CST REFERRAL Padmini Barry CNP [phone] CHIEF COMPLAINT/PURPOSE OF VISIT REASON FOR REFERRAL: Tunneled dialysis catheter Tunneled dialysis catheter placement for the initiation of dialysis HISTORY OF PRESENT ILLNESS PERTINENT PROCEDURAL HISTORY: Patient referred by Padmini Barry CNP for tunneled dialysis catheter placement for the initiation of dialysis. His kidney disease is secondary to Hypertension and left renal artery stenosis status post stenting. He will then initiate dialyzes at [facility] onFriday, 06/01/21. PACEMAKER: No DIABETES: No ANTICOAGULATION: Takes 81mg Aspirin but no other anticoagulation medications. LABORATORY RESULTS: Current Labs in [facility] from 05/29/21. ALLERGIES/ADVERSE REACTIONS Allergies Allergen [...] INSTRUCTIONS: Patient instructed to report to the [facility] Alexey Jody, Robert Draper-D on , 05/31/21 at 12:00pm. You must have a picker operator to drive you home due to the [...] to three fourths of the day in [place] for this procedure. There is generally some waiting involved prior to the procedure. Appointment scheduled via Tomeka Mcintyre at Interventional Radiology. The above appts were discussed with the patient over the phone and he had no further questions. [employer] OFFICER documented in this encounter Plan of Treatment Upcoming Encounters Date Type Specialty Care Team Description 05/22/2022 Appointment Laboratory Medicine Angélica Granger P.A.-C. [address] [place] [phone] 05/23/2022 Clinical Admitting/Central Communication Scheduling 05/27/2022 Comprehensive Visit Orthopedic Surgery Markus Sams M.D., Ph.D. [address] [place] [phone] 05/29/2022 Office Visit Otorhinolaryngology Dex Matta APRN, C.N.P., M.S.N. [address] [place] [phone] 05/29/2022 Office Visit Otorhinolaryngology Nadeem Maradiaga, PAdilia, M.S. [address] [place] [phone] 05/31/2022 Appointment Radiology Urban, Guilherme RASTA Camejo P.A.-C., M.S. [address] [place] [phone] 06/05/2022 Appointment Laboratory Medicine Angélica Granger P.A.-C. [address] [place] [phone] 06/19/2022 Appointment Laboratory Medicine Angélica Granger P.A.-C. [address] [place] [phone] 07/03/2022 Appointment Laboratory Angélica Royal P.A.-C. [address] [place] [phone] 07/17/2022 Appointment Laboratory Angélica Royal P.A.-C. [address] [place] [phone] 07/31/2022 Appointment Laboratory Angélica Royal P.A.-C. [address] [place] [phone] 08/14/2022 Appointment Laboratory Angélica Royal P.A.-C. [address] [place] [phone] 08/28/2022 Appointment Laboratory Angélica Royal P.A.-C. [address] [place] [phone] documented as of this encounter Visit Diagnoses Not on filedocumented in this encounter Additional Health Concerns Assessment Noted Time PHQ-9 Depression Total Score: 4 11/28/2020 10:17 AM CD T documented as of this encounter Care Teams Venue Attendant Relationship Specialty Start Date End Date Elsewhere, Pcp PCP - General Family Medicine 07/29/17 [facility] - Laboratory Medicine 04/12/20 [place] [address] documented as of this encounter
--- OUTSIDE RECORDS SUMMARY | 2022-05-17 18:38 | XMS_ITS | Encounter Summary ---
:1955 Author Organization [facility] Address [address] [place] [address] Care Team Providers Name Role Phone Elsewhere, Pcp Primary Care Provider Unavailable Encounter Details Date Type Department Care Team Description 05/28/2021 Orders Only Division of Nephrology Mara Barry Kidney Disease and Hypertension in Padmini Hernandez RAMONA, Stage 4 Glomerular [place], [place] C.N.P., D.N.P. 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 [address] [place] [phone] 05/23/2022 Clinical Admitting/Central Communication Scheduling 05/27/2022 Comprehensive Visit Orthopedic Surgery Markus Sams M.D., Ph.D. [address] [place] [phone] 05/29/2022 Office Visit Otorhinolaryngology Dex Matta APRN, C.N.P., M.S.N. [address] [place] [phone] 05/29/2022 Office Visit Otorhinolaryngology Nadeem Maradiaga, P.Murtaza.-Arley., M.S. [address] [place] [address] [phone] 05/31/2022 Appointment Radiology Guilherme Matt MPAS, P.Murtaza.Marie., M.S. [address] [place] [phone] 06/05/2022 Appointment Laboratory Medicine Angélica Granger P.A.-C. [address] [place] [phone] 06/19/2022 Appointment Laboratory Medicine Angélica Granger P.A.-C. [address] [place] [phone] 07/03/2022 Appointment Laboratory Medicine Angélica Granger P.A.-C. [address] [place] [phone] 07/17/2022 Appointment Laboratory Medicine Angélica Granger P.A.-C. [address] [place] [phone] 07/31/2022 Appointment Laboratory Medicine Angélica Granger P.A.-C. [address] [place] [phone] 08/14/2022 Appointment Laboratory Medicine Angélica Granger P.A.-C. [address] [place] [phone] 08/28/2022 Appointment Laboratory Medicine Angélica Granger P.A.-C. [address] [place] [phone] documented as of this encounter Results Hepatitis B Surface Antigen (05/29/2021 10:09 AM MIRROR MACHINE FEEDER) [facility] Time Signature HBs Antigen, Nonreactive Nonreactive 05/29/2021 ECLR S 4:51 PM MIRROR MACHINE FEEDER Comment: Biotin has been identified by the [facility] as a potential interfering substance. ??Higher concentr ations of biotin may be found in multivitamins, hair/nail supple ments, and workout supplements. ??If the result does not [facility] clinical observations, repeat testing after patient refrains fr om the use of supplements for at least 12 hours. Specimen Anatomical Collection Method Collection Time Receive d Time (Source) Location / / Volume Laterality Blood (Blood, 05/29/2021 10:09 05/29/2021 4:02 Venous) AM MIRROR MACHINE FEEDER PM MIRROR MACHINE FEEDER Padmini Barry Arley GREENE.NDemetriusPDemetrius, D.N.P. LAB MICROBIO LOGY - BLOOD ORDERABLES Performing Organization Address City/State/ZIP Code Phon e Number [facility]- [address] [place] [phone] [facility] [place] [address] [address] QuantiFERON-Tb Gold Plus, Blood (05/29/2021 10:09 AM MIRROR MACHINE FEEDER) athologist Signature QuantiFERON-TB Negative Negative 05/30/2021 ECLR Gold Plus 2:09 PM MIRROR MACHINE FEEDER Result Comment: No interferon-gamma response to M. [...] Nil Result 0.01 IU/mL 05/30/2021 2:09 PM MIRROR MACHINE FEEDER ECLR TB2 Ag minus Nil Result 0.00 IU/mL 05/30/2021 2:09 PM MIRROR MACHINE FEEDER ECLR Mitogen minus Nil Result 3.94 IU/mL 05/30/2021 2:09 PM MIRROR MACHINE FEEDER ECLR Nil Result 0.57 IU/mL 05/30/2021 2:09 PM MIRROR MACHINE FEEDER ECLR Specimen Anatomical Collection Method Collection Time Receive d Time (Source) Location / / Volume Laterality Blood (Blood, 05/29/2021 10:09 05/29/2021 4:02 Venous) AM MIRROR MACHINE FEEDER PM MIRROR MACHINE FEEDER Narrative [facility] - 05/30/2021 2:09 PM MIRROR MACHINE FEEDER Specimen Information: Specimen ID: [id number] Specimen Type: Blood Specimen Collection Start Date: 05/29/20 10:09 AM Specimen Received Date: 05/29/2021 ??4:0 2 PM Specimen ID: [id number] Specimen Type: Blood Specimen Collection Start Date: 05/29/20 10:09 AM Specimen Received Date: 05/29/2021 ??4:0 2 PM Specimen ID: [id number] Specimen Type: Blood Specimen Collection Start Date: 05/29/20 10:09 AM Specimen Received Date: 05/29/2021 ??4:0 3 PM Specimen ID: [id number] Specimen Type: Blood Specimen Collection Start Date: 05/29/20 10:09 AM Specimen Received Date: 05/29/2021 ??4:0 3 PM Padmini Barry APRN C.N.P., D.N.P. LAB MICROBIO LOGY - BLOOD ORDERABLES Performing Organization Address City/State/ZIP Code Phon e Number [facility]- [address] [place] [phone] [facility] [place] [address] System [address] documented in this encounter Visit Diagnoses Diagnosis Chronic Kidney Disease Stage 4 Glomerula r Filtration Rate 15-29 (HCC) - Primary Transplant Liver (HCC) Medication Therapy Float Tender Not Anticoa gulant Chronic Kidney Disease Stage 4 Glomerula r Filtration Rate 15-29 (HCC) documented in this encounter Additional Health Concerns Assessment Noted Time PHQ-9 Depression Total Score: 4 11/28/2020 10:17 AM CD T documented as of this encounter Care Teams Toll Repairer Central Office Relationship Specialty Start Date End Date Elsewhere, Pcp PCP - General Family Medicine 07/29/17 [facility] - Laboratory Medicine 04/12/[address] [address] documented as of this encounter
--- OUTSIDE RECORDS SUMMARY | 2022-05-17 18:38 | XMS_ITS | Encounter Summary ---
:1955 Author Organization [facility] Address [address] [place] [address] Care Team Providers Name Role Phone Elsewhere, Pcp Primary Care Provider Unavailable Reason for Referral Outpatient (Routine) - Closed Specialty Diagnoses / Procedures Referred By Contact Refer red To Contact Radiology Diagnoses Failure Renal End Stage (HCC) Padmini Barry [facility] Procedures IR Dialysis / High Flow Catheter Placement RAMONA C.N.PDemetrius, D.N.P. 200 [place] [address] Referral ID Status Reason Start Date Expiration Date Visits Requ ested Visits Authorized [id number] Closed 05/30/2021 05/30/2022 1 1 DRILLER Reason for Visit Outpatient (Routine) - Closed Specialty Diagnoses / Procedures Referred By Contact Refer red To Contact Radiology Diagnoses Failure Renal End Stage (HCC) Padmini Barry [facility] Procedures IR Dialysis / High Flow Catheter Placement RAMONA C.N.P., D.N.P. 200 [place] [address] Referral ID Status Reason Start Date Expiration Date Visits Requ ested Visits Authorized [id number] Closed 05/30/2021 05/30/2022 1 1 Encounter Details Date Type Department Care Team Description 05/31/2021 Hospital Encounter Department of Padmini Barry APRN C.N.PDemetrius, D.N.P. Failure Renal End Radiology in [place] Pastor M.D. [address] [place] [phone] Stage (HCC) [place], [place] Berenice Mart M.D. 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 documented as of this encounter Last Filed Vital Signs Vital Sign Reading Time Taken Comments Blood Pressure 138/80 05/31/2021 3:35 PM CORE DRILLER Pulse 57 05/31/2021 3:35 PM CORE DRILLER Temperature 36.9 ??C (98.4 ??F) 05/31/2021 1:38 PM CORE DRILLER Respiratory Rate 19 05/31/2021 3:35 PM CORE DRILLER Oxygen Saturation 98% 05/31/2021 3:35 PM CORE DRILLER Inhaled Oxygen Concentration - - Weight 75 kg (165 lb 5.5 oz) 05/31/2021 1:38 PM CORE DRILLER Height - - Body Mass Index 24.77 05/25/2021 8:29 AM CORE DRILLER documented in this encounter Discharge Instructions AttachmentsThe following attachments cannot be sent through Care Everywhere. Central Venous Catheter: Reducing Your Risk of Infection (Botswanan)Hemodialysis Catheters (Botswanan)VIDEO: CARE OF YOUR AQUATIC PHYSIOTHERAPIST CENTRAL VENOUS CATHETER (SWISS)documented in this encounter Medications at Time of [...] hours as needed for nausea or vomiting. acetaminophen (TYLENOL) Take 1 tablet by 0 2012 500 mg tablet mouth every 6 (six) hours as needed for fever. Pain. No more than 2000 mg per day. amoxicillin (AMOXIL) Take 4 capsules by 0 018 500 mg capsule mouth as directed. Prior to dental procedures darbepoetin Inject 0.3 mL (60 1 Syringe 6 01/09/2021 michelle-polysorbate mcg total) under the (Aranesp, in skin once for 1 polysorbate,) 60 dose. Hold if Hgb mcg/0.3 mL injection greater than 11 g/dL. Give once every 28 days. vancomycin (VANCOCIN) TAKE 1 CAPSULE BY 34 capsule 0 021 05/26/2022 125 mg capsule MOUTH FOUR TIMES A DAY FOR 34 DOSES calcium carb/magnesium Take 2 tablets by 0 [...] morning before tabletIndications: breakfast. Transplant Liver (HCC) mycophenolate TAKE 1 TABLET BY 180 tablet [...] mouth Transplant Liver (HCC), daily. Medication Therapy [facility] Not Anticoagulant Spiriva Respimat 2.5 INHALE 2 PUFFS BY 4 g 0 01/09/20 21 07/26/2021 mcg/actuation inhaler MOUTH DAILY tacrolimus (PROGRAF) Take 2 capsules (1 360 capsule 3 202007/16/2021 0.5 mg mg total) by mouth 2 capsuleIndications: (two) times a day. Transplant Liver (HCC), Medication Therapy [facility] Not Anticoagulant budesonide (Pulmicort) Mix 1 ampule in 120 mL 6 07/18/19 21 07/30/2021 0.5 mg/2 mL nebulizer sinus irrigation solution bottle and irrigate twice daily. multivitamin tablet Take 1 tablet by 0 06/18/2013 10/12/2021 mouth daily. Maintenance UNABLE TO FIND by nasal 0 10/12/2021 [...] Not applicable PATIENT INSTRUCTIONS No return appointment DRILLER documented in this encounter Plan of Treatment Upcoming Encounters Date Type Specialty Care Team Description 05/22/2022 Appointment Laboratory Medicine Angélica Granger P.A.-C. [address] [place] [phone] 05/23/2022 Clinical Admitting/Central Communication Scheduling 05/27/2022 Comprehensive Visit Orthopedic Surgery Markus Sams M.D., Ph.D. [address] [place] [address] 05/29/2022 Office Visit Otorhinolaryngology Dex Matta APRN, C.N.P., M.S.N. [address] [place] [phone] 05/29/2022 Office Visit Otorhinolaryngology Nadeem Maradiaga P.A.-C., M.S. [address] [place] [phone] 05/31/2022 Appointment Radiology Guilherme Matt MPAS, P.A.-C., M.S. [address] [place] [phone] 06/05/2022 Appointment Laboratory Medicine Angélica Granger P.A.-C. [address] [place] [phone] 06/19/2022 Appointment Laboratory Medicine Angélica Granger P.A.-C. [address] [place] [phone] 07/03/2022 Appointment Laboratory Medicine Angélica Granger P.A.-C. [address] [place] [phone] 07/17/2022 Appointment Laboratory Medicine Angélica Granger P.A.-C. [address] [place] [phone] 07/31/2022 Appointment Laboratory Medicine Angélica Granger P.A.-C. [address] [place] [phone] 08/14/2022 Appointment Laboratory Medicine Angélica Granger P.A.-C. [address] [place] [phone] 08/28/2022 Appointment Laboratory Medicine Angélica Granger P.A.-C. [address] [place] [phone] documented as of this encounter Procedures Procedure Name Priority Date/Time Associated Comments Diagnosis IR DIALYSIS / RAD - Routine 05/31/2021 3:23 Failure Renal End Resul ts for this HIGH FLOW (most inpatients PM CORE DRILLER Stage (HCC) procedure a re in CATHETER and all the results PLACEMENT outpatients) section. documented in this encounter Results IR Dialysis / High Flow Catheter Placement (05/31/2021 3:23 PM CORE DRILLER) Anatomical Region Laterality Modality Body, Vascular Interventional RST LOS, Vascular N/A X-Ray Angiography Interventional ARZ LOS, Vascular Interventional FLA LOS Specimen (Source) Anatomical Collection Method Collection Time Re ceived Time Location / / Volume Laterality 05/31/2021 4:39 PM CORE DRILLER Impressions 05/31/2021 4:41 PM CORE DRILLER Successful palindrome catheter placement. Catheter ready for use. EP Narrative 05/31/2021 4:41 PM CORE DRILLER EXAM: IR DIALYSIS / HIGH FLOW CATHETER [...] . Catheter ready for use. EP Padmini Hernandez Asha GREENE, C.N.P., D.N.P. IMG AKILAH RAMIRES documented in this encounter Visit Diagnoses Diagnosis Failure Renal End Stage (HCC) documented in this encounter Administered Medications Inactive Administered Medications - up to 3 most recent administrations Medication Order MAR Action Action Date Dose Rate Site fentaNYL injection 25 mcg Given 05/31/2021 3:07 PM CORE DRILLER 25 mcg (SUBLIMAZE) 25 mcg, intravenous, Every [...] than 8 breaths/minute Given 05/31/2021 3:00 PM CORE DRILLER 25 mcg flumazeniL injection 0.2 mg (ROMAZICON) 0.2 mg, intravenous, Once as needed, rev ersal, Starting on Shraddha 05/31/21 at 1424, For 1 dose, Intraprocedure (RAD), Administer once if patient has a RASS score of -4, -5 and has a respiratory rate less than 8 breaths/minute. lactated ringers New Bag 05/31/2021 2:57 PM CORE DRILLER 20 mL/hr 20 mL/hr 20 mL/hr, intravenous, Once as needed, to keep vein open, Starting on Shraddha 05/31/21 at 1323, For 1 dose, Intraprocedure (RAD) lidocaine-sodium bicarbonate (buffered) Given 05/31/2021 3:19 PM CORE DRILLER 18 mL 0.9%-8.4% injection infiltration, Code/trauma/sedation medication, [...] 0.5 mg (VERSED) Given 05/31/2021 3:07 PM CORE DRILLER 0.5 mg 0.5 mg, intravenous, Every 2 min PRN, sedation, RASS -1, Starting on Shraddha 05/31/21 at 1424, Intraprocedure (RAD), May repeat every 2 minutes for a maximum of 5 mg. Do not give if respiratory rate is less than 8 breaths/minute. Given 05/31/2021 2:59 PM CORE DRILLER 0.5 mg midazolam (PF) injection 1 mg [...] Recently Administered Medications Times are shown in CORE DRILLER. Scheduled Medication Order 05/29/2021 05/30/2021 05/31/2021 sodium chloride 0.9 % injection 3 mL 3 mL, intravenous, Every 12 hours schedu led, First dose on Shraddha 05/31/21 at 2100, Preprocedure (RAD), Peripheral Intravenous Catheter and Rapid Infusion Catheter, when no infusion to maintain patency PRN Medication Order 05/29/2021 05/30/2021 05/31/2021 fentaNYL injection 25 mcg (SUBLIMAZE) 1500 (Given - Provider: Arabella Mosher RDemetriusNDemetrius)1507 (Given - Provider: Arabella Mosher RDemetriusNDemetrius) 25 mcg, intravenous, Every 2 min PRN, [...] o keep vein open, Starting on Shraddha 12//21 at 1323, For 1 dose, Intraprocedure (RAD) lidocaine-sodium bicarbonate (buffered) 0.9%-8.4% injection (COM PLETED) 1519 (Given - Provider: [place] Pastor M.D.) infiltration, Code/trauma/sedation medication, Starting on T hu 05/31/21 at 1519 midazolam (PF) injection 0.25 mg (VERSED) 0.25 mg, intravenous, Every 2 min PRN, s edation, RASS -2, Starting on Shraddha 12//21 at 1424, Intraprocedure (RAD), May repeat every 2 minutes to a maximum of 5 mg. Do not give if respiratory rate is less than 8 breaths/minute. midazolam (PF) injection 0.5 mg (VERSED) 0.5 mg, intravenous, Once as needed, sed ation, Starting on Shraddha 12//21 at 1424, For 1 dose, Intraprocedure (RAD) midazolam (PF) injection 0.5 mg (VERSED) 1459 (Given - Provider: Arabella Mosher R.N.)1507 (Given - Provider: Arabella Mohser R.N.) 0.5 mg, intravenous, Every 2 min PRN, se dation, RASS -1, Starting on Shraddha 12/9/21 at 1424, Intraprocedure (RAD), May repeat every 2 minutes for a maximum of 5 mg. Do not give if respiratory rate is less than 8 breaths/minute. midazolam (PF) injection 1 mg (VERSED) 1 mg, intravenous, Every 2 min PRN, clay tion, RASS 0, Starting on Shraddha 12/9/21 at 1424, Intraprocedure [...] COVID19 Pending 05/31/2021 05/31/2021 05/31/2021 3:24 PM CORE DRILLER Assessment Noted Time PHQ-9 Depression Total Score: 4 11/28/2020 10:17 AM CD T documented as of this encounter Care Teams Computer Analyst Relationship Specialty Start Date End Date Elsewhere, Pcp PCP - General Family Medicine 07/29/17 [facility] - Laboratory Medicine 04/12/[address] [address] documented as of this encounter
--- OUTSIDE RECORDS SUMMARY | 2022-05-17 18:38 | XMS_ITS | Encounter Summary ---
:1955 Author Organization [facility] Address [address] [place] [address] Care Team Providers Name Role Phone Elsewhere, Pcp Primary Care Provider Unavailable Reason for Referral Outpatient (Routine) - Closed Specialty Diagnoses / Procedures Referred By Contact Refer red To Contact Radiology Diagnoses Failure Renal End Stage ([facility]) [facility] D[facility] / High Flow Catheter Placement Arley GREENE.N.P., D.N.P. 200 [place] [address] Referral ID Status Reason Start Date Expiration Date Visits Requ ested Visits Authorized [id number] Closed 05/30/2021 05/30/2022 1 1 AND SILVER ASSAYER Reason for Visit Appointment Request (Routine) - Closed Specialty Diagnoses / Procedures Referred By Contact Refer red To Contact Nephrology and Hypertension Referral ID Status Reason Start Date Expiration Date Visits Requ ested Visits Authorized [id number] Closed 05/16/2021 05/16/2022 1 1 Encounter Details Date Type Department Care Team Description 05/30/2021 External Outreach Division of Nephrology Asha, Chronic Kidney Disease Stage 4 Glomerular Filtration Rate 15-29 ([facility]); and Hypertension in Padmini Hernandez APRN, Failur e Renal End Stage ([facility]) [place], [place] C.N.P., D.N.P. [address] [place] [phone] Social History Tobacco Use Types Packs/Day Years [...] at Date Recorded Male 05/16/2020 4:27 PM GOLD AND SILVER ASSAYER documented as of this encounter Last Filed Vital Signs Vital Sign Reading Time Taken Comments Blood Pressure 142/52 05/30/2021 11:18 AM GOLD AND SILVER ASSAYER Pulse 87 05/30/2021 11:18 AM GOLD AND SILVER ASSAYER Temperature - - Respiratory Rate 22 05/30/2021 11:18 AM GOLD AND SILVER ASSAYER Oxygen Saturation 98% 05/30/2021 11:18 AM GOLD AND SILVER ASSAYER Inhaled Oxygen Concentration - - Weight - - Height - - Body Mass Index - - documented in this encounter Progress Notes Padmini Barry APRN, C.N.P., D.N.P. - 05/30/2021 9:15 AM CST Subjective: [place] chronic Kidney Disease Clinic Visit. History of [...] HERNÁN on CKD. He was sent to [facility]. While in the hospital he was [...] be placed tomorrow morning with dialysis at [facility] Dialysis unit in [place] on Friday. Hepatitis B Status: Hep B [...] starting dialysis on Friday. No changes made. AND SILVER ASSAYER documented in this encounter Plan of Treatment Upcoming Encounters Date Type Specialty Care Team Description 05/22/2022 Appointment Laboratory Medicine Angélica Granger P.A.-C. [address] [place] [phone] 05/23/2022 Clinical Admitting/Central Communication Scheduling 05/27/2022 Comprehensive Visit Orthopedic Surgery Markus Sams M.D., Ph.D. [address] [place] [phone] 05/29/2022 Office Visit Otorhinolaryngology Dex Matta APRN, C.N.P., M.S.N. [address] [place] [phone] 05/29/2022 Office Visit Otorhinolaryngology Nadeem Maradiaga, P.Murtaza.-C., M.S. [address] [place] [phone] 05/31/2022 Appointment Radiology Guilherme Matt MPAS, P.Murtaza.-Arley., M.S. [address] [place] [phone] 06/05/2022 Appointment Laboratory Medicine Angélica Granger P.A.-C. [address] [place] [phone] 06/19/2022 Appointment Laboratory Medicine Angélica Granger P.A.-C. [address] [place] [phone] 07/03/2022 Appointment Laboratory Medicine Angélica Granger P.A.-C. [address] [place] [phone] 07/17/2022 Appointment Laboratory Medicine Angélica Granger P.A.-C. [address] [place] [phone] 07/31/2022 Appointment Laboratory Medicine Angélica Granger P.A.-C. [address] [place] [phone] 08/14/2022 Appointment Laboratory Medicine Angélica Granger P.A.-C. [address] [place] [phone] 08/28/2022 Appointment Laboratory Medicine Angélica Granger P.A.-C. [address] [place] [phone] documented as of this encounter Procedures Procedure Name Priority Date/Time Associated Diagnosis Comme nts CYSTATIN C WITH Routine 05/26/2021 6:03 AM Chronic Kidney Resu lts for this EGFR GOLD AND SILVER ASSAYER Disease Stage 4 procedure ar e in Glomerular the results Filtration Rate section. 15-29 (HCC) documented in this encounter Results IR Dialysis / High Flow Catheter Placement (05/31/2021 3:23 PM GOLD AND SILVER ASSAYER) Anatomical Region Laterality Modality Body, Vascular Interventional RST LOS, Vascular N/A X-Ray Angiography Interventional ARZ LOS, Vascular Interventional FLA LOS Specimen (Source) Anatomical Collection Method Collection Time Re ceived Time Location / / Volume Laterality 05/31/2021 4:39 PM GOLD AND SILVER ASSAYER Impressions 05/31/2021 4:41 PM GOLD AND SILVER ASSAYER Successful palindrome catheter placement. Catheter ready for use. EP Narrative 05/31/2021 4:41 PM GOLD AND SILVER ASSAYER EXAM: IR DIALYSIS / HIGH FLOW CATHETER [...] Padmini Barry APRN, C.N.P., D.N.P. IMG IR PROCE DURES SARS CoV-2 RNA, PCR, Varies Asymptomatic (05/31/2021 9:38 AM GOLD AND SILVER ASSAYER) [facility] Method Time Signature SARS CoV-2 Swab, 05/31/2021 DTL RNA, PCR, Nasopharynx 3:23 PM GOLD AND SILVER ASSAYER Source SARS CoV-2 Undetected Undetected 05/31/2021 DTL RNA, PCR 3:23 PM GOLD AND SILVER ASSAYER Comment: SARS-CoV-2 RNA absent. This result does [...] Drug Administration an d is used per synthetic department supervisor's instructions. Performance characteristics were verified by [facility] in a manner consistent with CLIA requirements. Visit the CDC website: https://www.cdc.g ov/coronavirus/ for the most recent guidelines on Coron avirus testing. Fact Sheet for Healthcare Providers: https://www.fda.gov/media/972624/downloa d Fact Sheet for Patients: https://www.fda.gov/media/090744/downloa d Specimen Anatomical Collection Method Collection Time Receive d Time (Source) Location / / Volume Laterality Varies 05/31/2021 9:38 AM (Nasopharynx) GOLD AND SILVER ASSAYER 10:40 AM GOLD AND SILVER ASSAYER Padmini Barry APRN C.N.P., D.N.P. LAB MICROBIO LOGY - GENERAL ORDERABLES Performing Organization Address City/State/ZIP Code Phon e Number [facility] - [address] [place], [place] [address] [place] [address] [place] [address] [facility] [address] [facility] (ABNORMAL) Cystatin C with Estimated GFR, S (05/26/2021 6:03 AM GOLD AND SILVER ASSAYER) P athologist Signature eGFR by 9 (L) >60 05/29/2021 DTL Cystatin C mL/min/BSA 5:48 PM GOLD AND SILVER ASSAYER Comment: Estimated GFR calculated using the CKD-E [...] 0.67 - 1.21 mg/L 05/29/2021 5:48 PM GOLD AND SILVER ASSAYER DTL Specimen Anatomical Collection Method Collection Time Receive d Time (Source) Location / / Volume Laterality Blood (Blood, 05/26/2021 6:03 AM 05/29/20 4:21 Venous) GOLD AND SILVER ASSAYER PM GOLD AND SILVER ASSAYER Padmini Barry APRN, C.N.P., D.N.P. LAB BLOOD AD D-ON Performing Organization Address City/State/ZIP Code Phon e Number [facility] - [address] [place], [place] [address] [place] [address] [facility] [address] documented in this encounter Visit Diagnoses Diagnosis Chronic Kidney Disease Stage 4 Glomerula r Filtration Rate 15-29 (HCC) Failure Renal End Stage (HCC) Failure Renal End Stage (HCC) documented in this encounter Additional Health Concerns Assessment Noted Time PHQ-9 Depression Total Score: 4 11/28/2020 10:17 AM CD T documented as of this encounter Care Teams Inside Trucker Relationship Specialty Start Date End Date Elsewhere, Pcp PCP - General Family Medicine 07/29/17 [facility] - Laboratory Medicine 04/12/[address] [address] documented as of this encounter
--- OUTSIDE RECORDS SUMMARY | 2022-05-17 18:38 | XMS_ITS | Encounter Summary ---
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 Hypertension / Dialysis Ezio Rees [address] [place] [address] Referral ID Status Reason Start Date Expiration Date Visits Requ ested Visits Authorized [id number] Closed 06/04/2021 06/04/2022 1 1 TLE MECHANIC Outpatient (Routine) - Closed Specialty Diagnoses / Procedures Referred By Contact Refer red To Contact Nephrology and Otoniel Norwood [facility] ramy Cope Jr., D.O. 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 [address] [place] [phone] 05/23/2022 Clinical Admitting/Central Communication Scheduling 05/27/2022 Comprehensive Visit Orthopedic Surgery Markus Sams M.D., Ph.D. [address] [place] [phone] 05/29/2022 Office Visit Otorhinolaryngology Dex Matta APRN, C.N.P., M.S.N. [address] [place] [phone] 05/29/2022 Office Visit Otorhinolaryngology Nadeem Maradiaga, P.Murtaza.-Arley., M.S. [address] [place] [address] [phone] 05/31/2022 Appointment Radiology Guilherme Matt MPAS, PAdilia, M.S. [address] [place] [address] [phone] 06/05/2022 Appointment Laboratory Medicine Angélica Granger P.A.-C. [address] [place] [phone] 06/19/2022 Appointment Laboratory Medicine Angélica Granger P.A.-C. [address] [place] [phone] 07/03/2022 Appointment Laboratory Medicine Angélica Granger P.A.-C. [address] [place] [phone] 07/17/2022 Appointment Laboratory Medicine Angélica Granger P.A.-C. [address] [place] [phone] 07/31/2022 Appointment Laboratory Medicine Angélica Granger P.A.-C. [address] [place] [phone] 08/14/2022 Appointment Laboratory Medicine Angélica Granger P.A.-C. [address] [place] [phone] 08/28/2022 Appointment Laboratory Medicine Angélica Granger P.A.-C. 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) Immunodeficiency (HCC) Transplant Liver (HCC) documented as of this encounter Results US Upper Extremity Bilateral Dialysis Mapping (06/21/2021 10:43 AM TRESTLE MECHANIC) Anatomical Region Laterality Modality Upper Extremity, Ultrasound RST LOS, Ultrasound ARZ LOS, Pranav ateral Ultrasound Ultrasound FLA LOS Specimen (Source) Anatomical Collection Method Collection Time Re ceived Time Location / / Volume Laterality 06/21/2021 10:44 AM TRESTLE MECHANIC Impressions 06/21/2021 10:57 AM TRESTLE MECHANIC Upper extremity arteries and veins evaluated for predialysis assessment Narrative 06/21/2021 10:57 AM TRESTLE MECHANIC EXAM: US UPPER EXTREMITY BILATERAL DIALYSIS MAPPING [...] documented as of this encounter Care Teams Plywood Factory Worker Relationship Specialty Start Date End Date Elsewhere, Pcp PCP - General Family Medicine 07/29/17 [facility] - Laboratory Medicine 04/12/20 [place] [phone] documented as of this encounter
--- OUTSIDE RECORDS SUMMARY | 2022-05-17 18:38 | XMS_ITS | Encounter Summary ---
:1955 Author Organization [facility] Address [address] [place] [address] Care Team Providers Name Role Phone Elsewhere, Pcp Primary Care Provider Unavailable Encounter Details Date Type Department Care Team Description 05/31/2021 Lab Department of Laboratory [place], Em savage Failure Renal End Stage Medicine and Pathology, E, RAMONA, C.N.P., ([facility]) [facility], in D.N.P. 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 [address] [place] [phone] 05/23/2022 Clinical Admitting/Central Communication Scheduling 05/27/2022 Comprehensive Visit Orthopedic Surgery Markus Sams M.D., Ph.D. [address] [place] [address] [phone] 05/29/2022 Office Visit Otorhinolaryngology Dex Matta APRN, C.N.P., M.S.N. [address] [place] [address] [phone] 05/29/2022 Office Visit Otorhinolaryngology Nadeem Maradiaga, P.A.-C., M.S. [address] [place] [phone] 05/31/2022 Appointment Radiology Guilherme Matt MPAS, P.Murtaza.-Arley., M.S. [address] [place] [phone] 06/05/2022 Appointment Laboratory Medicine Angélica Granger P.A.-C. [address] [place] [phone] 06/19/2022 Appointment Laboratory Medicine Angélica Granger P.A.-C. [address] [place] [phone] 07/03/2022 Appointment Laboratory Medicine Angélica Granger P.A.-C. [address] [place] [phone] 07/17/2022 Appointment Laboratory Medicine Angélica Granger P.A.-C. [address] [place] [phone] 07/31/2022 Appointment Laboratory Medicine Angélica Granger P.A.-C. [address] [place] [phone] 08/14/2022 Appointment Laboratory Medicine Angélica Granger P.A.-C. [address] [place] [address] [phone] 08/28/2022 Appointment Laboratory Medicine Angélica Granger P.A.-C. [address] [place] [address] [phone] documented as of this encounter Procedures Procedure Name Priority Date/Time Associated Diagnosis Comme nts SARS COV-2 RNA, Routine 05/31/2021 9:38 AM Failure Renal End R esults for this PCR, VARIES TANK BUILDER SUPERVISOR Stage (HCC) procedure are i n the results section. documented in this encounter Results SARS CoV-2 RNA, PCR, Varies Asymptomatic (05/31/2021 9:38 AM TANK BUILDER SUPERVISOR) [facility] Method Time Signature SARS CoV-2 Swab, 05/31/2021 DTL RNA, PCR, Nasopharynx 3:23 PM TANK BUILDER SUPERVISOR Source SARS CoV-2 Undetected Undetected 05/31/2021 DTL RNA, PCR 3:23 PM TANK BUILDER SUPERVISOR Comment: SARS-CoV-2 RNA absent. This result does [...] Drug Administration an d is used per digital media buyer's instructions. Performance characteristics were verified by [facility] in a manner consistent with CLIA requirements. Visit the CDC website: https://www.cdc.g ov/coronavirus/ for the most recent guidelines on Coron avirus testing. Fact Sheet for Healthcare Providers: https://www.fda.gov/media/144267/downloa d Fact Sheet for Patients: https://www.fda.gov/media/591769/downloa d Specimen Anatomical Collection Method Collection Time Receive d Time (Source) Location / / Volume Laterality Varies 05/31/2021 9:38 AM 1 (Nasopharynx) TANK BUILDER SUPERVISOR 10:40 AM TANK BUILDER SUPERVISOR Padmini Barry APRN C.N.P., D.N.P. LAB MICROBIO LOGY - GENERAL ORDERABLES Performing Organization Address City/State/ZIP Code Phon e Number [facility] - [address] [place], [place] [address] [facility] [place] [address] [facility] [address] documented in this encounter Visit Diagnoses Diagnosis Failure Renal End Stage (HCC) documented in this encounter Additional Health Concerns Infection Onset Date Last Indicated Resolved Time COVID19 Pending 05/31/2021 05/31/2021 05/31/2021 3:24 PM TANK BUILDER SUPERVISOR Assessment Noted Time PHQ-9 Depression Total Score: 4 11/28/2020 10:17 AM CD T documented as of this encounter Care Teams Trim Technician Relationship Specialty Start Date End Date Elsewhere, Pcp PCP - General Family Medicine 07/29/17 [facility] - Laboratory Medicine 04/12/[address] [phone] documented as of this encounter
--- OUTSIDE RECORDS SUMMARY | 2022-05-17 18:38 | XMS_ITS | Encounter Summary ---
:1955 Author Organization [facility] Address [address] [place] [address] Care Team Providers Name Role Phone Elsewhere, Pcp Primary Care Provider Unavailable Reason for Referral Outpatient (Routine) - Closed Specialty Diagnoses / Procedures Referred By Contact Refer red To Contact Diagnoses [facility] Procedures Colonoscopy C.N.P., D.N.P. [address] [place] [phone] Referral ID Status Reason Start Date Expiration Date Visits Requ ested Visits Authorized [id number] Closed 05/22/2021 05/22/2022 1 1 ER LATHE SET UP OPERATOR Reason for Visit Outpatient (Routine) - Closed Specialty Diagnoses / Procedures Referred By Contact Refer red To Contact Diagnoses [facility] Procedures Colonoscopy C.N.P., D.N.P. [address] [place] [phone] Referral ID Status Reason Start Date Expiration Date Visits Requ ested Visits Authorized [id number] Closed 05/22/2021 05/22/2022 1 1 Encounter Details Date Type Department Care Team Description 06/06/2021 Hospital Encounter Division of [facility] in Padmini Hernandez APRNBronx, [place] C.N.P., D.N.P. [address] [place] [phone] Social History Tobacco Use Types Packs/Day [...] at Date Recorded Male 05/16/2020 4:27 PM TRACER LATHE SET UP OPERATOR documented as of this encounter Last Filed Vital Signs Vital Sign Reading Time Taken Comments Blood Pressure 148/77 06/06/2021 3:33 PM TRACER LATHE SET UP OPERATOR Pulse 59 06/06/2021 3:33 PM TRACER LATHE SET UP OPERATOR Temperature 36.8 ??C (98.2 ??F) 06/06/2021 3:33 PM TRACER LATHE SET UP OPERATOR Respiratory Rate 10 06/06/2021 3:33 PM TRACER LATHE SET UP OPERATOR Oxygen Saturation 98% 06/06/2021 3:33 PM TRACER LATHE SET UP OPERATOR Inhaled Oxygen Concentration - - Weight 75 kg (165 lb 5.5 oz) 06/06/2021 1:19 PM TRACER LATHE SET UP OPERATOR Height 174 cm (5' 8.5) 06/06/2021 1:19 PM TRACER LATHE SET UP OPERATOR Body Mass Index 24.77 06/06/2021 1:19 PM TRACER LATHE SET UP OPERATOR documented in this encounter Medications at [...] dental procedures atorvastatin (LIPITOR) TAKE 1 TABLET(10 MG) 90 [...] mouth Transplant Liver (HCC), daily. Medication Therapy Accountant Controller Not Anticoagulant Spiriva Respimat 2.5 INHALE 2 [...] Procedure Department : DIVISION OF GASTROENTEROLOGY IN [place], [place] SUBJECTIVE Past Medical History: Diagnosis Date [...] and Family: Once a week ??? Attends Islam Services: More than 4 times per year [...] the Last Year: No Ambulatory Infusion Pump/Implanted Pigment And Lacquer Mixer- Peripheral IV Catheter 06/06/21 20 G Right [...] Defined Limits Dental Information: Teeth: Intact ER LATHE SET UP OPERATOR documented in this encounter Miscellaneous Notes Result [...] For now he will continue dialyzing at [facility] where he is getting Epogen with each dialysis. I did let him know that if his hemoglobin does not respond and continue to improve with the Epogen after starting dialysis a hematology consult may be needed. The colonoscopy was done due to non responding hemoglobin and positive Hemoccult. ER LATHE SET UP OPERATOR documented in this encounter Plan of Treatment Upcoming Encounters Date Type Specialty Care Team Description 05/22/2022 Appointment Laboratory Medicine Angélica Granger P.A.-C. [address] [place] [phone] 05/23/2022 Clinical Admitting/Central Communication Scheduling 05/27/2022 Comprehensive Visit Orthopedic Surgery Markus Sams M.D., Ph.D. [address] [place] [phone] 05/29/2022 Office Visit Otorhinolaryngology Dex Matta APRN, C.N.P., M.S.N. [address] [place] [phone] 05/29/2022 Office Visit Otorhinolaryngology Nadeem Maradiaga, P.A.-C., M.S. [address] [place] [phone] 05/31/2022 Appointment Radiology Guilherme Matt MPAS, P.A.-C., M.S. [address] [place] [phone] 06/05/2022 Appointment Laboratory Medicine Angélica Granger P.A.-C. [address] [place] [phone] 06/19/2022 Appointment Laboratory Medicine Angélica Granger P.A.-C. [address] [place] [phone] 07/03/2022 Appointment Laboratory Medicine Angélica Granger P.A.-C. [address] [place] [phone] 07/17/2022 Appointment Laboratory Medicine Angélica Granger P.A.-C. [address] [place] [phone] 07/31/2022 Appointment Laboratory Medicine Angélica Granger P.A.-C. [address] [place] [phone] 08/14/2022 Appointment Laboratory Medicine Angélica Granger P.A.-C. [address] [place] [phone] 08/28/2022 Appointment Laboratory Medicine Angélica Granger P.A.-C. [address] [place] [phone] documented as of this encounter Procedures Procedure Name Priority Date/Time Associated Diagnosis Comme nts SURGICAL PATHOLOGY Routine 06/06/2021 3:03 PM Res ults for this TRACER LATHE SET UP OPERATOR procedure are i n the results section. COLONOSCOPY Routine 06/06/2021 2:32 PM Anemia Results f or this TRACER LATHE SET UP OPERATOR procedure are i n the results section. COLONOSCOPY Routine 06/06/2021 2:32 PM Anemia TRACER LATHE SET UP OPERATOR documented in this encounter Results Surgical Pathology (06/06/2021 3:03 PM TRACER LATHE SET UP OPERATOR) Component Value Ref Test Analysis Performed Pathologis t Range Method Time At [facility] 06/08/2021 DTL 4:07 PM TRACER LATHE SET UP OPERATOR Participated in Diana Leonardo 06/08/2021 DTL the [facility] -Pathology 4:07 PM Interpretation Resident TRACER LATHE SET UP OPERATOR Report Leonid Oneal M.D. [phone] DTL electronically 4:07 PM signed by [facility] I verify that I have examined all relevant slides/materials for the specimen(s) and rendered or confirmed the diagnosis. Gross Description A: ?? Received in formalin labeled with the patie nt's name, 06/08/2021 DTL medical record number, and ileum-biopsy, terminal ileum 4:07 PM are four pale [id number]-etr irregular soft tissues, ranging TRACER LATHE SET UP OPERATOR from 0.2-0.6 cm in greatest dimension. ??Specimens are submitted en toto in cassette A1. ??Grossed by AJG. B: ?? Received in formalin labeled with the patient's name, medical record number, and colon-biopsy, random sites (colon), right colon are eight pale [id number] irregular soft tissues, ranging from 0.2-0.6 cm [...] DT Its performance characteristics were determined by [facility] 4:07 PM Clinic in a manner consistent with CLIA requirements. This TRACER LATHE SET UP OPERATOR test has not been cleared or approved by the U.S. Food and Drug Administration. Interpretation REVISION DESCRIPTION 06/08/2021 DTL CMV stains on A and B, not C. ?? Underlining in the PDF 4:07 PM report indicates revision. TRACER LATHE SET UP OPERATOR FINAL DIAGNOSIS A. ??Small bowel, terminal ileum [...] Volume Laterality Biopsy (Ileum) 06/06/2021 3:03 PM TRACER LATHE SET UP OPERATOR Biopsy (Colon) 06/06/2021 3:08 PM TRACER LATHE SET UP OPERATOR Biopsy (Colon) 06/06/2021 3:16 PM TRACER LATHE SET UP OPERATOR Narrative This result has an attachment that is no t available. Carlos Dewey M.D., M.S. LAB SURG PATH ORDERABLE S Performing Organization Address City/State/ZIP Code Phon e Number [facility] - [address] [place], [place] [address] [facility] [place] [address] [facility] [address] Colonoscopy (06/06/2021 2:32 PM TRACER LATHE SET UP OPERATOR) Specimen (Source) Anatomical Collection Method Collection Time Re ceived Time Location / / Volume Laterality 06/06/2021 2:32 PM TRACER LATHE SET UP OPERATOR Impressions [employer] - 06/06/2021 3:28 PM TRACER LATHE SET UP OPERATOR Post-op Diagnoses: ? - Preparation of the [...] separate bottle. ? - Internal hemorrhoids. Narrative [employer] - 06/06/2021 3:28 PM TRACER LATHE SET UP OPERATOR Gonda 9 GI GI Patient Name: Bruce [...] preparation was evaluated using t he BBPS ([place] Bowel Preparation ? Scale) with scores of: Right [place] n = 2 (minor amount of residual [...] lactated ringers New Bag 06/06/2021 2:48 PM TRACER LATHE SET UP OPERATOR 20 mL Code/trauma/sedation continuous med, Starting on Fri06/06/21 at 1448 documented in this encounter Additional Health Concerns Assessment Noted Time PHQ-9 Depression Total Score: 4 11/28/2020 10:17 AM CD T documented as of this encounter Care Teams Workers' Compensation Commissioner Relationship Specialty Start Date End Date Elsewhere, Pcp PCP - General Family Medicine 07/29/17 [facility] - Laboratory Medicine 04/12/20 [place] [phone] documented as of this encounter
--- OUTSIDE RECORDS SUMMARY | 2022-05-17 18:39 | XMS_ITS | Encounter Summary ---
:1955 Author Organization [facility] Address [address] [place] [address] Care Team Providers Name Role Phone Elsewhere, Pcp Primary Care Provider Unavailable Encounter Details Date Type Department Care Team Description 05/26/2021 Orders Only [facility], Suzette Escalante M.D. 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 [address] [place] [phone] 05/23/2022 Clinical Admitting/Central Communication Scheduling 05/27/2022 Comprehensive Visit Orthopedic Surgery Markus Sams M.D., Ph.D. [address] [place] [phone] 05/29/2022 Office Visit Otorhinolaryngology Dex Matta APRN, C.N.P., M.S.N. [address] [place] [phone] 05/29/2022 Office Visit Otorhinolaryngology Nadeem Maradiaga, P.A.-Arley., M.S. [address] [place] [address] [phone] 05/31/2022 Appointment Radiology Guilherme Matt MPAS, PMaryanne., M.S. [address] [place] [address] [phone] 06/05/2022 Appointment Laboratory Medicine Angélica Granger P.A.-C. [address] [place] [address] [phone] 06/19/2022 Appointment Laboratory Medicine Angélica Granger P.A.-C. [address] [place] [phone] 07/03/2022 Appointment Laboratory Medicine Angélica Granger P.A.-C. [address] [place] [address] [phone] 07/17/2022 Appointment Laboratory Medicine Angélica Granger P.A.-C. [address] [place] [phone] 07/31/2022 Appointment Laboratory Medicine Angélica Granger P.A.-C. [address] [place] [phone] 08/14/2022 Appointment Laboratory Medicine Angélica Granger P.A.-C. [address] [place] [phone] 08/28/2022 Appointment Laboratory Medicine Angélica Granger P.A.-C. [address] [place] [phone] documented as of this encounter Visit Diagnoses Not on filedocumented in this encounter Additional Health Concerns Infection Onset Date Last Indicated Resolved Time COVID19 Pending 05/31/2021 05/31/2021 05/31/2021 3:24 PM MOSAICIST COVID19 Pending 07/20/2021 07/21/2021 07/21/2021 9:42 PM MOSAICIST COVID19 Pending 07/22/2021 07/23/2021 07/23/2021 8:59 PM MOSAICIST COVID19 Pending 10/12/2021 10/12/2021 10/12/2021 2:28 PM CDT COVID19 Pending 10/12/2021 10/12/2021 10/13/2021 12:34 AM CDT COVID19 Pending 12/05/2021 12/05/2021 12/05/2021 6:33 PM CDT COVID19 Pending 12/07/2021 12/07/2021 12/07/2021 1:40 PM CDT COVID19 Pending 02/04/2022 02/04/2022 02/05/2022 2:30 PM CDT Assessment Noted Time PHQ-9 Depression Total Score: 4 11/28/2020 10:17 AM CD T documented as of this encounter Care Teams Perl Programmer Relationship Specialty Start Date End Date Elsewhere, Pcp PCP - General Family Medicine 07/29/17 [facility] - Laboratory Medicine 04/12/[address] [address] documented as of this encounter
--- OUTSIDE RECORDS SUMMARY | 2022-05-17 18:39 | XMS_ITS | Encounter Summary ---
:1955 Author Organization [facility] Address [address] [place] [address] Care Team Providers Name Role Phone Elsewhere, Pcp Primary Care Provider Unavailable Reason for Visit Reason Comments Pre-visit Testing Orders Encounter Details Date Type Department Care Team Description 05/23/2021 Clinical Communication RST MARGARET [place], Pre-visit Testing [address] [facility] Sada Ma Orders [place], [place] [address] [place] [phone] [place] [phone] Social History Tobacco Use Types Packs/Day Years [...] many times do you More than three nagélica es a week 12/15/2021 talk on the [...] at Date Recorded Male 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 [address] [place] [phone] 05/23/2022 Clinical Admitting/Central Communication Scheduling 05/27/2022 Comprehensive Visit Orthopedic Surgery Markus Sams M.D., Ph.D. [address] [place] [phone] 05/29/2022 Office Visit Otorhinolaryngology Dex Matta, RAMONA, C.N.P., M.S.N. [address] [place] [phone] 05/29/2022 Office Visit Otorhinolaryngology Nadeem Maradiaga, P.Murtaza.-Arley., M.S. [address] [place] [address] [phone] 05/31/2022 Appointment Radiology Guilherme Matt MPAS, PMaryanne., M.S. [address] [place] [address] [phone] 06/05/2022 Appointment Laboratory Medicine Angélica Granger P.A.-C. [address] [place] [phone] 06/19/2022 Appointment Laboratory Medicine Angélica Granger P.A.-C. [address] [place] [phone] 07/03/2022 Appointment Laboratory Medicine Angélica Granger P.A.-C. [address] [place] [phone] 07/17/2022 Appointment Laboratory Medicine Angéilca Granger P.A.-C. [address] [place] [phone] 07/31/2022 Appointment Laboratory Medicine Angélica Granger P.A.-C. [address] [place] [phone] 08/14/2022 Appointment Laboratory Medicine Angélica Granger P.A.-C. [address] [place] [phone] 08/28/2022 Appointment Laboratory Medicine Angélica Granger P.A.-C. [address] [place] [phone] documented as of this encounter Visit Diagnoses Diagnosis Shortness Of Breath - Primary documented in this encounter Additional Health Concerns Infection Onset Date Last Indicated Resolved Time COVID19 Pending 05/23/2021 05/23/2021 05/23/2021 11:53 AM TEAMCENTER SOLUTION ARCHITECT Assessment Noted Time PHQ-9 Depression Total Score: 4 11/28/2020 10:17 AM CD T documented as of this encounter Care Teams Death Clearance Coordinator Relationship Specialty Start Date End Date Elsewhere, Pcp PCP - General Family Medicine 07/29/17 [facility] - Laboratory Medicine 04/12/[address] [address] documented as of this encounter
--- OUTSIDE RECORDS SUMMARY | 2022-05-17 18:39 | XMS_ITS | Encounter Summary ---
:1955 Author Organization [facility] Address [address] [place] [id number] Care Team Providers Name Role Phone Elsewhere, Pcp Primary Care Provider Unavailable Reason for Referral Transplant (Routine) - Closed Specialty Diagnoses / Procedures Referred By Contact Refer red To Contact Transplant Surgery / Diagnoses Transplant Liver (HCC) Medication Therapy Group Home Not Anticoagulant [facility] [address] [place] [phone] Referral ID Status Reason Start Date Expiration Date Visits Requ ested Visits Authorized [id number] Closed 05/28/2021 05/28/2022 1 1 Scheduling Instructions SPECIAL- please schedule labs then LTC f ollow-up early this week. Thanks IAL EDUCATION DIRECTOR Encounter Details Date Type Department Care Team Description 05/28/2021 Orders Only Yolie Gamez Trans plant Liver (HCC) (Primary Dx); Center for R, R.N. Medication Therapy Group Home Not Anticoa gulant Transplantation and [address] [place] [address] Clinical [facility] in [place], [place] [phone] [place] [address] [place], [place] [phone] (Work) [phone] Social History Tobacco Use Types Packs/Day Years [...] Date Recorded Male 05/16/2020 4:27 PM SPECIAL EDUCATION DIRECTOR documented as of this encounter Plan of Treatment Upcoming Encounters Date Type Specialty Care Team Description 05/22/2022 Appointment Laboratory Medicine Angélica Granger P.A.-C. [address] [place] [phone] 05/23/2022 Clinical Admitting/Central Communication Scheduling 05/27/2022 Comprehensive Visit Orthopedic Surgery Markus Sams M.D., Ph.D. [address] [place] [phone] 05/29/2022 Office Visit Otorhinolaryngology Dex Matta APRN, C.N.P., M.S.N. [address] [place] [phone] 05/29/2022 Office Visit Otorhinolaryngology Nadeem Maradiaga, Edmundo, M.S. [address] [place] [phone] 05/31/2022 Appointment Radiology Guilherme Matt MPAS, P.A.-C., M.S. [address] [place] [phone] 06/05/2022 Appointment Laboratory Medicine Angélica Granger P.A.-C. [address] [place] [phone] 06/19/2022 Appointment Laboratory Medicine Angélica Granger P.A.-C. [address] [place] [phone] 07/03/2022 Appointment Laboratory Medicine Angélica Granger P.A.-C. [address] [place] [phone] 07/17/2022 Appointment Laboratory Medicine Angélica Granger P.A.-C. [address] [place] [phone] 07/31/2022 Appointment Laboratory Medicine Angélica Granger P.A.-C. [address] [place] [phone] 08/14/2022 Appointment Laboratory Medicine Angélica Granger P.A.-C. [address] [place] [phone] 08/28/2022 Appointment Laboratory Medicine EmilieAngélica wilcox Edmundo Stern [address] [place] [phone] Scheduled Referrals Name Type Priority Associated Diagnoses Order S chedule Transplant Liver Outpatient Referral Routine Transplant Liver (HCC) Expected: office visit Medication Therapy (clinic) Chip Machine Operator Not (Approximate), Anticoagulant Expires: 08/26/2022 documented as of this encounter Results (ABNORMAL) Tacrolimus, B (05/29/2021 10:09 AM SPECIAL EDUCATION DIRECTOR) athologist Signature Tacrolimus, B 1.6 (L) 5.0-15.0 05/30/2021 [facility] (Trough) 10:21 AM SPECIAL EDUCATION DIRECTOR ng/mL Comment: ----ADDITIONAL INFORMATION---- Target steady-state trough concentration s vary depending on the type of transplant, concomitant immunosuppressio n, clinical/institutional protocols, and time post-transplant. Results should be interpreted in conjunction with this clinical information and any physic al signs/symptoms of rejection/toxicity. Testing performed by Liquid Chromatograp hy-Tandem Mass Spectrometry (LC-MS/MS). This test was developed and its performa nce characteristics determined by [facility] in a manner consistent with CLIA requirements. This test has not been cleared or approved by the U.S. Mer d and Drug Administration. Specimen Anatomical Collection Method Collection Time Receive d Time (Source) Location / / Volume Laterality Blood (Blood, 05/29/2021 10:09 05/30/2021 6:49 Venous) AM SPECIAL EDUCATION DIRECTOR AM SPECIAL EDUCATION DIRECTOR Leonid Gonzalez M.D. LAB BLOOD NON ADD-ON Performing Organization Address City/State/ZIP Code Phon e Number [facility] [address] [place], [place] [address] [facility] [place] [address] Laboratory Medicine and Pathology [address] [place] (ABNORMAL) Glucose, Fasting (05/29/2021 10:09 AM SPECIAL EDUCATION DIRECTOR) athologist Signature Glucose, P 112 (H) 70 - 100 05/29/2021 [facility] mg/dL 10:58 AM SPECIAL EDUCATION DIRECTOR Last Intake 16 hr 05/29/2021 [facility] 10:10 AM SPECIAL EDUCATION DIRECTOR Specimen Anatomical Collection Method Collection Time Receive d Time (Source) Location / / Volume Laterality Blood (Blood, 05/29/2021 10:09 05/29/2021 Venous) AM SPECIAL EDUCATION DIRECTOR 10:10 AM SPECIAL EDUCATION DIRECTOR Leonid Gonzalez M.D. LAB BLOOD NON ADD-ON Performing Organization Address City/State/ZIP Code Phon e Number [facility]- [address] [place] [address] [place] [address] (ABNORMAL) Comprehensive Metabolic Panel (05/29/2021 10:09 AM SPECIAL EDUCATION DIRECTOR) Analysis Performed At Patho logist Time Signature Potassium, P 4.2 3.6 - 5.2 05/29/2021 [facility] mmol/L 11:00 AM SPECIAL EDUCATION DIRECTOR Sodium, P 129 (L) 135 - 145 05/29/2021 [facility] mmol/L 11:00 AM SPECIAL EDUCATION DIRECTOR Chloride, P 97 (L) 98 - 107 05/29/2021 [facility] mmol/L 11:00 AM SPECIAL EDUCATION DIRECTOR Bicarbonate, P 20 (L) 22 - 29 05/29/2021 [facility] mmol/L 11:00 AM SPECIAL EDUCATION DIRECTOR Anion Gap, P 12 7 - 15 05/29/2021 [facility] 11:00 AM SPECIAL EDUCATION DIRECTOR BUN (Blood Urea 47 (H) 8 - 24 05/29/2021 [facility] Nitrogen), P mg/dL 11:00 AM SPECIAL EDUCATION DIRECTOR Creatinine 3.95 (H) 0.74 - 05/29/2021 [facility] 1.35 mg/dL 11:00 AM SPECIAL EDUCATION DIRECTOR eGFR-Black/Afri 17 (L) >=60 05/29/2021 [facility] can Croatian mL/min/BSA 11:00 AM SPECIAL EDUCATION DIRECTOR Comment: ----ADDITIONAL INFORMATION---- Estimated GFR calculated using the 2009 CKD_EPI creatinine equation. eGFR Non-Black/ <15 (L) >=60 mL/min/BSA 05/29/2021 11:00 AM [facility] Croatian SPECIAL EDUCATION DIRECTOR Comment: ----ADDITIONAL INFORMATION---- Estimated GFR calculated using the 2009 CKD_EPI creatinine equation. Calcium, Total, P 8.2 (L) 8.8 - 10.2 mg/dL 05/29/2021 11:0 0 AM SPECIAL EDUCATION DIRECTOR [facility] Glucose, P CANCELED mg/dL 05/29/2021 10:11 AM SPECIAL EDUCATION DIRECTOR [facility] Comment: Test not performed. See Fasting Glucose result. Result canceled by the ancillary. Protein, Total, P 5.5 (L) 6.3 - 7.9 g/dL 05/29/2021 11:00 AM SPECIAL EDUCATION DIRECTOR [facility] Albumin, P 3.3 (L) 3.5 - 5.0 g/dL 05/29/2021 11:00 AM SPECIAL EDUCATION DIRECTOR [facility] Aspartate Aminotransferase 45 8 - 48 U/L 05/29/2021 1 1:00 AM SPECIAL EDUCATION DIRECTOR CN[facility] (AST), P Alkaline Phosphatase, P 108 40 - 129 U/L 05/29/2021 11 :00 AM SPECIAL EDUCATION DIRECTOR [facility] Alanine Aminotransferase 40 7 - 55 U/L 05/29/2021 11: 00 AM SPECIAL EDUCATION DIRECTOR [facility] (ALT), P Bilirubin, Total, P 0.2 <=1.2 mg/dL 05/29/2021 11:00 A M SPECIAL EDUCATION DIRECTOR [facility] Specimen Anatomical Collection Method Collection Time Receive d Time (Source) Location / / Volume Laterality Blood (Blood, 05/29/2021 10:09 05/29/2021 Venous) AM SPECIAL EDUCATION DIRECTOR 10:10 AM SPECIAL EDUCATION DIRECTOR Leonid Gonzalez M.D. LAB BLOOD ADD-ON Performing Organization Address City/State/[facility] Code Phon e Number [phone] [place] [address] [place] [address] System in [address] (ABNORMAL) CBC with Differential, Blood (05/29/2021 10:09 AM SPECIAL EDUCATION DIRECTOR) [facility] gist Method Time Signature Hemoglobin 7.6 (L) 13.2 - 05/29/2021 [facility] 16.6 g/dL 11:08 AM SPECIAL EDUCATION DIRECTOR Hematocrit 24.2 (L) 38.3 - 05/29/2021 [facility] 48.6 % 11:08 AM SPECIAL EDUCATION DIRECTOR Erythrocytes 2.48 (L) 4.35 - 05/29/2021 [facility] 5.65 11:08 AM SPECIAL EDUCATION DIRECTOR x10(12)/L MCV 97.6 78.2 - 05/29/2021 [facility] 97.9 fL 11:08 AM SPECIAL EDUCATION DIRECTOR RBC Distrib Width 13.8 11.8 - 05/29/2021 [facility] 14.5 % 11:08 AM SPECIAL EDUCATION DIRECTOR Platelet Count 209 135 - 317 05/29/2021 [facility] x10(9)/L 11:08 AM SPECIAL EDUCATION DIRECTOR Leukocytes 3.2 (L) 3.4 - 9.6 05/29/2021 [facility] x10(9)/L 11:08 AM SPECIAL EDUCATION DIRECTOR Neutrophils 2.37 1.56 - 05/29/2021 [facility] 6.45 11:08 AM SPECIAL EDUCATION DIRECTOR x10(9)/L Lymphocytes 0.35 (L) 0.95 - 05/29/2021 [facility] 3.07 11:08 AM SPECIAL EDUCATION DIRECTOR x10(9)/L Monocytes 0.33 0.26 - 05/29/2021 [facility] 0.81 11:08 AM SPECIAL EDUCATION DIRECTOR x10(9)/L Eosinophils 0.09 0.03 - 05/29/2021 [facility] 0.48 11:08 AM SPECIAL EDUCATION DIRECTOR x10(9)/L Basophils 0.02 0.01 - 05/29/2021 [facility] 0.08 11:08 AM SPECIAL EDUCATION DIRECTOR x10(9)/L Specimen Anatomical Collection Method Collection Time Receive d Time (Source) Location / / Volume Laterality Blood (Blood, 05/29/2021 10:09 05/29/2021 Venous) AM SPECIAL EDUCATION DIRECTOR 10:11 AM SPECIAL EDUCATION DIRECTOR Leonid Gonzalez M.D. LAB BLOOD ADD-ON Performing Organization Address City/State/[facility] Code Phon e Number [address] [phone] [place] [address] System [address] documented in this encounter Visit Diagnoses Diagnosis Transplant Liver (HCC) - Primary Medication Therapy Group Home Not Anticoa gulant documented in this encounter Additional Health Concerns Infection Onset Date Last Indicated Resolved Time COVID19 Pending 05/31/2021 05/31/2021 05/31/2021 3:24 PM SPECIAL EDUCATION DIRECTOR Assessment Noted Time PHQ-9 Depression Total Score: 4 11/28/2020 10:17 AM CD T documented as of this encounter Care Teams Lunch Counter Manager Relationship Specialty Start Date End Date Elsewhere, Pcp PCP - General Family Medicine 07/29/17 [facility] - Laboratory Medicine 04/12/20 [place] [address] documented as of this encounter
--- OUTSIDE RECORDS SUMMARY | 2022-05-17 18:39 | XMS_ITS | Encounter Summary ---
:1955 Author Organization [facility] Address [address] [place] [address] Care Team Providers Name Role Phone Elsewhere, Pcp Primary Care Provider Unavailable Encounter Details Date Type Department Care Team Description 05/23/2021 Hospital Department of [place], Chronic Kidne y Disease Stage 4 Glomerular Filtration Rate 15-29 (HCC); Encounter Laboratory Padmini Hernandez, Hypertension An d Chronic Kidney Disease Stage 4 (HCC); Medicine in [facility], C.N.P., Anemia; [place], [place] D.N.P. 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 ofloxacin (FLOXIN) 0.3 Administer 4 drops 5 mL 0 12/2805/24/2021 % otic solution into the right ear 2 (two) times a day. Use 2 drops twice daily with ofloxacin drops (4 drops total) x 14 days [id number] Drink 1st portion of 1 kit 0 05/21/202107/2020 [id number] prep at 6 PM the (MOVIPREP) evening [...] total) by mouth Transplant Liver ([facility]), daily. Medication Therapy Mcc Not Anticoagulant sodium chloride USE 4 ML VIA 0 08/30/2020 021 (NEBUSAL) 3 % nebulizer NEBULIZER TWICE solution DAILY Spiriva Respimat 2.5 INHALE 2 PUFFS BY 4 g 0 01/09/20 21 07/26/2021 mcg/actuation inhaler MOUTH DAILY tacrolimus (PROGRAF) Take 2 capsules (1 360 capsule 3 202007/16/2021 0.5 mg mg total) by mouth 2 capsuleIndications: (two) times a day. Transplant Liver (HCC), Medication Therapy [employer] Support Specialist Not Anticoagulant torsemide (DEMADEX) 10 Take 3 [...] Laboratory Medicine Angélica Granger P.A.-C. [address] [place] [phone] 05/23/2022 Clinical Admitting/Central Communication Scheduling 05/27/2022 Comprehensive Visit Orthopedic Surgery Markus Sams M.D., Ph.D. [address] [place] [phone] 05/29/2022 Office Visit Otorhinolaryngology Dex Matta APRN, C.N.P., M.S.N. [address] [place] [phone] 05/29/2022 Office Visit Otorhinolaryngology Nadeem Maradiaga, P.A.-C., M.S. [address] [place] [phone] 05/31/2022 Appointment Radiology Guilherme Matt, RASTA, P.Murtaza.-Arley., M.S. [address] [place] [phone] 06/05/2022 Appointment Laboratory Medicine Angélica Granger P.A.-C. [address] [place] [phone] 06/19/2022 Appointment Laboratory Medicine Angélica Granger P.A.-C. [address] [place] [phone] 07/03/2022 Appointment Laboratory Medicine Angélica Granger P.A.-C. [address] [place] [phone] 07/17/2022 Appointment Laboratory Medicine Angélica Granger P.A.-C. [address] [place] [phone] 07/31/2022 Appointment Laboratory Medicine Angélica Granger P.A.-C. [address] [place] [phone] 08/14/2022 Appointment Laboratory Medicine Angélica Granger P.A.-C. [address] [place] [phone] 08/28/2022 Appointment Laboratory Medicine Angélica Granger P.A.-C. [address] [place] [phone] documented as of this encounter Procedures Procedure Name Priority Date/Time Associated Comments Diagnosis ALBUMIN, RANDOM, U Routine 05/23/2021 8:34 AM Chronic Kidney R esults for this FLOORWORKER Disease Stage 4 procedure ar e in Glomerular the results Filtration Rate section. 15-29 (HCC) Hypertension And Chronic Kidney Disease Stage 4 (HCC) Anemia Hyperparathyroidism Secondary (HCC) URINALYSIS WITH Routine 05/23/2021 8:34 AM Chronic Kidney Resu lts for this MICROSCOPIC FLOORWORKER Disease Stage 4 procedure ar e in Glomerular the results Filtration Rate section. 15-29 (HCC) Hypertension And Chronic Kidney Disease Stage 4 (HCC) Anemia Hyperparathyroidism Secondary (HCC) documented in this encounter Results (ABNORMAL) Albumin, Random, Urine (05/23/2021 8:34 AM FLOORWORKER) [facility] Method Time Signature Microalbumin 357.9 mg/L 05/23/2021 [facility] 10:00 AM FLOORWORKER Creatinine 78 mg/dL 05/23/2021 [facility] 10:00 AM FLOORWORKER Albumin/Creatinin 459 (H) <17 mg/g 05/23/2021 [facility] e Ratio 10:00 AM FLOORWORKER Specimen Anatomical Collection Method Collection Time Receive d Time (Source) Location / / Volume Laterality Urine (Urine, 05/23/2021 8:34 AM 05/23/20 9:39 Clean Catch) FLOORWORKER AM FLOORWORKER Padmini Barry APRN, C.N.P., D.N.P. LAB URINE OR DERABLES Performing Organization Address City/State/ZIP Code Phon e Number [address] [address] [place] [address] (ABNORMAL) Urinalysis with Microscopic: Urine, Midstream (05/23/2021 8:34 AM FLOORWORKER) Analysis Performed At Patho logist Time Signature Source Urine, Urine, 05/23/2021 CN[facility] Midstream 9:39 AM FLOORWORKER Clarity Clear Clear 05/23/2021 CN[facility] 9:50 AM FLOORWORKER Color Yellow 05/23/2021 CN[facility] 9:50 AM FLOORWORKER Comment: ----REFERENCE VALUE---- Colorless Yellow Bhakti Blood Small (A) Negative 05/23/2021 9:50 AM FLOORWORKER CNFL Nitrite Negative Negative 05/23/2021 9:50 AM FLOORWORKER CNFL Leukocyte Esterase Negative Negative 05/23/2021 9:50 AM CS T [facility] Protein 100 (A) mg/dL 05/23/2021 9:50 AM FLOORWORKER CNFL Comment: ----REFERENCE VALUE---- Negative Trace Glucose Negative Negative mg/dL 05/23/2021 9:50 AM FLOORWORKER CN FL Ketones, QI(U) Negative Negative mg/dL 05/23/2021 9:[address] [facility] Bilirubin Negative Negative 05/23/2021 9:50 AM FLOORWORKER CNFL pH 6.5 5.0 - 8.0 05/23/2021 9:50 AM FLOORWORKER CNFL Specific [place] 1.015 1.001 - 1.035 05/23/2021 9:50 AM FLOORWORKER CNFL Urobilinogen 0.2 0.2 - 1.0 mg/dL 05/23/2021 9:50 AM CS T [facility] White Blood Cells Occ-3 /hpf 05/23/2021 10:17 AM CS T CNFL Comment: ----REFERENCE VALUE---- Males: 0-3 Females: 0-10 Unknown: 0-10 Red Blood Cells Occ-2 0 - 2 /hpf 05/23/2021 10:17 AM FLOORWORKER CNFL Specimen Anatomical Collection Method Collection Time Receive d Time (Source) Location / / Volume Laterality Urine (Urine, 05/23/2021 8:34 AM 05/23/20 9:39 Midstream) FLOORWORKER AM FLOORWORKER Padmini Barry APRN, C.N.P., D.N.P. LAB URINE OR DERABLES Performing Organization Address City/State/ZIP Code Phon e Number [phone] [place] [address] [place] [address] System [address] documented in this encounter Visit Diagnoses Diagnosis Chronic Kidney Disease Stage 4 Glomerula r Filtration Rate 15-29 (HCC) Hypertension And Chronic Kidney Disease Stage 4 (HCC) Anemia Hyperparathyroidism Secondary (HCC) documented in this encounter Additional Health Concerns Infection Onset Date Last Indicated Resolved Time COVID19 Pending 05/23/2021 05/23/2021 05/23/2021 11:53 AM FLOORWORKER Assessment Noted Time PHQ-9 Depression Total Score: 4 11/28/2020 10:17 AM CD T documented as of this encounter Care Teams Dock Hand Relationship Specialty Start Date End Date Elsewhere, Pcp PCP - General Family Medicine 07/29/17 [facility] - Laboratory Medicine 04/12/[address] [phone] documented as of this encounter
--- OUTSIDE RECORDS SUMMARY | 2022-05-17 18:39 | XMS_ITS | Encounter Summary ---
:1955 Author Organization [facility] Address [address] [place] [address] Care Team Providers Name Role Phone Elsewhere, Pcp Primary Care Provider Unavailable Encounter Details Date Type Department Care Team Description 05/24/2021 - Hospital Encounter [facility] Ant Cordova M.D. [address] [place] [address] Failure Renal [facility] [address] [place] [address] (Primary Dx) [facility], Third Floor [address] [place] [address] Social History Tobacco Use Types [...] at Date Recorded Male 05/16/2020 4:27 PM DRUM DRIER OPERATOR documented as of this encounter Last Filed Vital Signs Vital Sign Reading Time Taken Comments Blood Pressure 137/75 05/26/2021 2:30 PM DRUM DRIER OPERATOR Pulse 75 05/26/2021 2:30 PM DRUM DRIER OPERATOR Temperature 36.7 ??C (98.1 ??F) 05/26/2021 2:30 PM DRUM DRIER OPERATOR Respiratory Rate 15 05/26/2021 2:30 PM DRUM DRIER OPERATOR Oxygen Saturation 97% 05/26/2021 2:30 PM DRUM DRIER OPERATOR Inhaled Oxygen Concentration - - Weight 73.7 kg (162 lb 7.7 oz) 05/26/2021 10:57 AM DRUM DRIER OPERATOR Height 174 cm (5' 8.5) 05/25/2021 8:29 AM DRUM DRIER OPERATOR Body Mass Index 24.34 05/25/2021 8:29 AM DRUM DRIER OPERATOR documented in this encounter Discharge Summaries Suzette Henson M.D. - 05/26/2021 1:02 PM CST DISCHARGE SUMMARY BRIEF OVERVIEW Hospital: [facility] Discharge Provider: Rio Younger M.B.BDemetriusS. Primary Team: [facility] Medicine 3 ([facility]) Primary Care Providers: Elsewhere, Pcp, PA-C [...] in October 2020, admitted on 05/24/2021 to [facility] 3 ([facility]) service for anemia evaluation and management. [...] failure in the setting of [facility] for direct admission. [...] CONSULT TO CARE MANAGEMENT IP CONSULT TO PHARMACY TECHNICIAN PARK INTERPRETER IP CONSULT TO NEPHROLOGY CONDITION AT DISCHARGE improved Discharge instructions were provided to the patient and caregiver(s). DRIER OPERATOR documented in this encounter Discharge Instructions Discharge InstructionsMoose Murcia - 05/25/2021 7:18 AM CST You were discharged from the [facility] Medicine 3 ([facility]) Service. Please identify this service name if you call with questions after hospitalization. [facility] experts agree: You should get a COVID-19 vaccine as soon as it's available to you. ??? The vaccines that we???re recommending have been approved for safe use. ??? [facility] will continue to coordinate with state and local governments on future vaccine distribution phases. o If your primary care provider is at [facility] and you plan to receive your vaccination at [facility], please ensure that you have activated your Patient Portal at [facility] to allow [facility] to communicate to you about the scheduling process. ??? Practice social distancing, wear a mask properly outside your home, wash your hands frequently, and follow your state and local recommendations until the spread has stopped. ??? The vaccine may not be recommended to those with certain health conditions. Talk to your health care provider if you have questions about receiving the vaccine. DRIER OPERATOR AttachmentsThe following attachments cannot be sent through Care Everywhere. Multivitamins, Adult Formula (By mouth) (Bolivian)Vancomycin (By mouth) (Bolivian) documented in this encounter Medications at Time [...] hours as needed for nausea or vomiting. multivitamin renal Take 1 tablet by 30 tablet 11 05/26/2021 05/26/2022 failure (DIALYVITE) mouth daily with 100-1 mg tablet dinner. vancomycin (VANCOCIN) TAKE 1 CAPSULE BY 34 [...] mouth Transplant Liver (HCC), daily. Medication Therapy Prism Inspector Not Anticoagulant Spiriva Respimat 2.5 INHALE 2 PUFFS BY 4 g 0 01/09/20 21 07/26/2021 mcg/actuation inhaler MOUTH DAILY tacrolimus (PROGRAF) Take 2 capsules (1 360 capsule 3 202007/16/2021 0.5 mg mg total) by mouth 2 capsuleIndications: (two) times a day. Transplant Liver (HCC), Medication Therapy Prism Inspector Not Anticoagulant UNABLE TO FIND by nasal [...] diet. This case was discussed with Nephrology oncology consultant Dr. May. Please refer to their note for any additional details. Please contact the Nephrology A service pager at [phone] with any questions or concerns. If this note is pending, recommendations remain preliminary and subject to change until note has been signed. Anthony Nino M.D. Internal Medicine, PGY-2 DRIER OPERATOR Suzette Henson M.D. - 05/26/2021 11:02 AM CST PROGRESS NOTE [facility] Medicine 3 ([facility]) Service SUBJECTIVE CHIEF CONCERN Reason for [...] bleeding - colonoscopy as outpatient, per Nephrology JosephineYTELY is safe in his case ?? # [...] from today's date ?? Plan discussed with [facility] Medicine 3 ([facility]) Sql Database Administrator, Rio Younger M.B.B.S. Please page the [facility] Medicine 3 ([facility]) service pager at [phone] with any questions. ?? -- Suzette Henson M.D. PGY-1P - Internal Medicine DRIER OPERATOR Rio Younger M.B.B.S. - 05/25/2021 1:10 PM [...] - 05/25/2021 1:00 PM CST PROGRESS NOTE [facility] Medicine 3 ([facility]) Service SUBJECTIVE CHIEF CONCERN Reason for [...] from today's date ?? Plan discussed with [facility] Medicine 3 ([facility]) Sql Database Administrator, Rio Younger M.B.B.S. Please page the T Medicine 3 ([facility]) service pager at [phone] with any questions. ?? -- Suzette Henson M.D. PGY-1P - Internal Medicine DRIER OPERATOR Adam Rodriguez Pharm.DDemetrius, R.Ph. - 05/25/2021 9:17 [...] 5 mg daily. Adam Rodriguez Pharm.D., R.Ph. DRIER OPERATOR Rachelle Maldonado - 05/25/2021 8:22 AM CST Clinical Nutrition: Initial [...] sweeter foods. Typically eatings big breakfast and patcher lunches and dinner, also experiencing early satiety. [...] 174 cm Admission Weight: 72.6 kg (05/24/2021) [place] Body Weight (Calculated) : 69.3 kg BMI (Calculated): 24 kg/m?? Weight change since admission: 0 kg Weight history: 07/03/20 (82.4 kg) 08/31/20 (81.3 kg) 01/12/21 (76.8 kg) 05/24/21 (72.6 kg) - weight loss of 11.9% in 11 months, not signficant per ASPEN criteria. Estimated Needs: Total Calorie Needs: 9499-8363 calories/day Method to Estimate Energy Needs: Hernandez-Pecan Gap (Basal to Basal + 20%) Weight Used [...] about patient's nutritional care please contact pager [phone] on weekdays or [phone] on weekends/holidays. DRIER OPERATOR Bryan Matrins - 05/24/2021 6:33 PM CST Images from [...] to Sinus Rinse twice daily. [facility] DRIER OPERATOR documented in this encounter H&P Notes Rio Younger M.B.BDemetriusS. - 05/24/2021 5:35 PM CST I have [...] team's plan of care. Counseling was provided [id number] at bedside. I personally spent over half of a total 70 minutes in counseling and coordination of care. DRIER OPERATOR Suzette Henson M.D. - 05/24/2021 4:45 PM CST ADMISSION HISTORY & PHYSICAL EXAM [facility] Medicine 3 ([facility]) Service SUBJECTIVE CHIEF CONCERN Failure Renal [...] in October 2020, admitted on 05/24/2021 to [facility] 3 ([facility]) service for anemia evaluation and management. [...] Hepatitis Autoimmune (HCC), Hyperlipidemia (2015), Hypertension NOS (2015), Other Complications Of Liver Transplant (HCC), and [...] days from today's date Plan discussed with [facility] Medicine 3 ([facility]) Sql Database Administrator, Rio Younger M.B.B.S. Please page the [facility] Medicine 3 ([facility]) service pager at [phone] with any questions. -- Suzette Henson M.D. 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 He was sent to the ED by his pile driving technician due to acute on chronic anemia with [...] also has significant arteriosclerosis and arteriolar hyalinosis, [id number]. Interstitial fibrosis with tubular atrophy affects approximately 30-40% of the sample cortex.?? Home Rx: BP: Torsemide 30 QD, Nifedipine 90mg QD, doxazosin 4mg Aranesp 100mcg q21 days Liver tx: cellcept 500mg BID, pred 5mg daily, tacrolimus [address] non-contrast 11/27/20 ?? Mildly atrophic torres martinez kidneys. ?? Mild to moderate calcific atherosclerotic [...] diet. This case was discussed with Nephrology oncology consultant Dr. May. Please refer to their note for any additional details. Please contact the Nephrology B service pager at [phone] with any questions or concerns. If this note is pending, recommendations remain preliminary and subject to change until note has been signed. Simba Rene, B.Ch. DRIER OPERATOR Associated attestation - Steve May M.D. - 05/25/2021 5:43 PM DRUM DRIER OPERATOR I saw and evaluated the patient, participating [...] PRBC. Plan for possible colonoscopy. Would give [id number] mg IV once during this admission. Would give also Aranesp 100 mcg subcutaneous today. Will follow. Radha Hendricks R.N. - 05/25/2021 12:50 PM CSTAssociated Order(s): IP CONSULT TO CARE MANAGEMENT Discharge Planning Assessment SUBJECTIVE Referral Data Referral Source: Early Screen for Discharge Planning Referral Name: ESDP 12 Referral Reason: Discharge Planning Discharge Planning: Early screen discharge Who was present during the interview?: Patient Temporary Help Agency Referral Clerk Services Used: No Patient Information Primary Caregiver: [...] Independent Behavior: Oriented Communication: Can write,Talks,Understands speaking,Understands Bolivian,Reads Environmental Supports Home Environment: House Anticipated Modifications to the Patient's Home: None Anticipated Needs/Assistive Devices ADL Anticipated Needs: None Transportation Needs: Independent to drive,Support from family Finance/Insurance Primary insurance: MEDICARE A AND B Secondary insurance: [employer] Does the Patient have any Financial Concerns?: [...] arranged?: No ASSESSMENT / PLAN Assessment: The energy manager met with Bruce Singh to discuss his current hospitalization and home going needs. The patient was unaccompanied. The patient was a reliable historian. The role of energy manager was reviewed. The patient reviewed his prior level of care and support system. The patient receives support from his sister. The patient described his living environment as a single level home with level entry. Housekeeping, grocery shopping, meal prep, and other household responsibilities have previously been completed by patient. energy manager discussed the patient's potential needs at dismissal [...] [place]. Patient reports being independentin all ADLs [...] chart and meeting with the patient, the energy manager deemed the LACE+/readmission questions were not necessary. [...] will be provided by family--Parris jacome. 3. energy manager recommended reaching out to family, friends, and neighbors for assistance. 4. energy manager provided information regarding the dismissal process and the Senior Linkage Line ([place] Board on [employer]ging) handout. 5. energy manager placed or requested the following hospital-based consult orders and/or referrals:None. 6. energy manager will continue to assess for homegoing needs with the interdisciplinary team. 7. energy manager encouraged the patient to reach out with any questions/concerns. Care Management will continue to follow. Signed by: Radha Hendricks R.N. 05/25/2021 DRIER OPERATOR Flaquita Luevano - 05/25/2021 9:00 AM CSTAssociated Order(s): IP CONSULT TO PHARMACY TECHNICIAN PARK INTERPRETER Encounter: Spiritual care consult Situation: Mr. Singh spoke about his situation and the sense of loss as his physical condition hasimpacted the things he is able to do and enjoy in life. Family: No family present. Dana Tradition: Mr. Singh is Episcopalian and affiliated with [facility] in [facility]. Plan: Will remain available for spiritual care as needed or requested. Chaplains can be contacted bybanner [phone] ([place]). DRIER OPERATOR documented in this encounter Nursing Notes Eve [...] and all of belongings sent with patient. DRIER OPERATOR Dierdre Keller R.N. - 05/24/2021 6:18 PM CST Problem: [...] Intact, musculoskeletal intact, vitally stable. Regular diet. DRIER OPERATOR documented in this encounter Miscellaneous Notes Documentation [...] me if you have questions. Thank you, Mahnaz Delgadillo., Chevy, Zuleika, [facility] Clinical Documentation Chief Of Planning Query created by: Micah Delgadillo, Chevy, Zuleika, [facility] 05/26/2021 01:38 PM </LCI> DRIER OPERATOR Hospital Course - Suzette Henson M.D. - [...] in October 2020, admitted on 05/24/20[facility] to [facility] Medicine 3 ([facility]) service for anemia evaluation and management. [...] failure in the setting of anemia[facility] patient for direct admission. [...] with nephrology on 05/30 regarding further treatment. DRIER OPERATOR documented in this encounter Plan of Treatment Upcoming Encounters Date Type Specialty Care Team Description 05/22/2022 Appointment Laboratory Medicine Angélica Granger P.A.-C. [address] [place] [phone] 05/23/2022 Clinical Admitting/Central Communication Scheduling 05/27/2022 Comprehensive Visit Orthopedic Surgery Markus Sams M.D., Ph.D. [address] [place] [phone] 05/29/2022 Office Visit Otorhinolaryngology Dex Matta APRN, C.N.P., M.S.N. [address] [place] [phone] 05/29/2022 Office Visit Otorhinolaryngology Nadeem Maradiaga P.A.-C., M.S. [address] [place] [phone] 05/31/2022 Appointment Radiology Guilherme Matt MPAS, P.A.-C., M.S. [address] [place] [phone] 06/05/2022 Appointment Laboratory Medicine Angélica Granger P.A.-C. [address] [place] [phone] 06/19/2022 Appointment Laboratory Medicine Angélica Granger P.A.-C. [address] [place] [phone] 07/03/2022 Appointment Laboratory Medicine Angélica Granger P.A.-C. [address] [place] [phone] 07/17/2022 Appointment Laboratory Medicine Angélica Granger P.A.-C. [address] [place] [phone] 07/31/2022 Appointment Laboratory Medicine Angélica Granger P.A.-C. [address] [place] [phone] 08/14/2022 Appointment Laboratory Medicine Angélica Granger P.A.-C. [address] [place] [phone] 08/28/2022 Appointment Laboratory Medicine Angélica Granger P.A.-C. [address] [place] [phone] Pending Results Name Type Priority Associated Diagnoses Date/Ti me Prepare Red Blood Blood Bank Routine 05/23/2021 11:37 AM DRUM DRIER OPERATOR Cells, 1 Units documented as of this encounter Procedures Procedure Name Priority Date/Time Associated Comments Diagnosis HEMOGLOBIN, B Routine 05/26/2021 11:09 Results fo r this AM DRUM DRIER OPERATOR procedure are i n the results section. RENAL FUNCTION PANEL, Routine 05/26/2021 6:06 AM Results for this S DRUM DRIER OPERATOR procedure are i n the results section. SOLUBLE TRANSFERRIN Routine 05/26/2021 6:06 AM Re sults for this RECEPTOR (STFR), S DRUM DRIER OPERATOR procedure are in the results section. CBC WITH DIFFERENTIAL, Routine 05/26/2021 6:06 AM Results for this B DRUM DRIER OPERATOR procedure are i n the results section. SPSMA RESULT Routine 05/25/2021 12:35 Results for this PM DRUM DRIER OPERATOR procedure are i n the results section. RETICULOCYTES, B Routine 05/25/2021 12:35 Results for this PM DRUM DRIER OPERATOR procedure are i n the results section. CBC WITH DIFFERENTIAL, Routine 05/25/2021 12:35 R esults for this B PM DRUM DRIER OPERATOR procedure are i n the results section. LACTATE DEHYDROGENASE Routine 05/25/2021 12:35 Re sults for this (LD), S PM DRUM DRIER OPERATOR procedure are i n the results section. HAPTOGLOBIN, S Routine 05/25/2021 12:35 Results f or this PM DRUM DRIER OPERATOR procedure are i n the results section. TRANSFUSE RED BLOOD Routine 05/25/2021 9:45 AM CELLS DRUM DRIER OPERATOR TACROLIMUS LEVEL, B Timed 05/25/2021 5:05 AM Re sults for this DRUM DRIER OPERATOR procedure are i n the results section. CBC WITH DIFFERENTIAL, Timed 05/25/2021 5:05 AM Results for this B DRUM DRIER OPERATOR procedure are i n the results section. PHOSPHORUS Timed 05/25/2021 5:05 AM Results f or this (INORGANIC), S DRUM DRIER OPERATOR procedure are in the results section. MAGNESIUM, S Timed 05/25/2021 5:05 AM Results f or this DRUM DRIER OPERATOR procedure are i n the results section. BASIC METABOLIC PANEL, Timed 05/25/2021 5:05 AM Results for this S/P DRUM DRIER OPERATOR procedure are i n the results section. GI PATHOGEN PANEL, Routine 05/24/2021 8:22 PM Res ults for this PCR, F DRUM DRIER OPERATOR procedure are i n the results section. ECG Routine 05/24/2021 5:43 PM Results f or this DRUM DRIER OPERATOR procedure are i n the results section. PREPARE RED BLOOD Routine 05/23/2021 11:37 CELLS AM DRUM DRIER OPERATOR documented in this encounter Results (ABNORMAL) Hemoglobin (05/26/2021 11:09 AM DRUM DRIER OPERATOR) P athologist Signature Hemoglobin 7.8 (L) 13.2 - 16.6 05/26/2021 DTL g/dL 11:39 AM DRUM DRIER OPERATOR Specimen Anatomical Collection Method Collection Time Receive d Time (Source) Location / / Volume Laterality Blood (Blood, 05/26/2021 11:09 05/26/2021 Venous) AM DRUM DRIER OPERATOR 11:32 AM DRUM DRIER OPERATOR Suzette Henson M.D. LAB BLOOD ADD-ON Performing Organization Address City/State/ZIP Code Phon e Number [facility] - [address] [place], [place] [address] [facility] [place] [address] Laboratories-[facility] [address] (ABNORMAL) Renal Function Panel (05/26/2021 6:06 AM DRUM DRIER OPERATOR) Analysis Performed At Patho logist Time Signature Potassium, S 4.1 3.6 - 5.2 05/26/2021 DTL mmol/L 8:07 AM DRUM DRIER OPERATOR Sodium, S 128 (L) 135 - 145 05/26/2021 DTL mmol/L 8:07 AM DRUM DRIER OPERATOR Chloride, S 94 (L) 98 - 107 05/26/2021 DTL mmol/L 8:07 AM DRUM DRIER OPERATOR Bicarbonate, S 21 (L) 22 - 29 05/26/2021 DTL mmol/L 8:07 AM DRUM DRIER OPERATOR Anion Gap 13 7 - 15 05/26/2021 DTL 8:07 AM DRUM DRIER OPERATOR BUN (Blood Urea 55 (H) 8 - 24 05/26/2021 DTL Nitrogen), S mg/dL 8:07 AM DRUM DRIER OPERATOR Creatinine 4.59 (H) 0.74 - 05/26/2021 DTL 1.35 mg/dL 8:07 AM DRUM DRIER OPERATOR eGFR-Non <15 (L) >=60 05/26/2021 DTL Black/ mL/min/BSA 8:07 AM DRUM DRIER OPERATOR Mauritian Comment: ----ADDITIONAL INFORMATION---- Estimated GFR calculated using the 2009 CKD_EPI creatinine equation. eGFR-Black/ <15 (L) >=60 mL/min/BSA 2020 8:07 AM DRUM DRIER OPERATOR DTL Comment: ----ADDITIONAL INFORMATION---- Estimated GFR calculated using the 2009 CKD_EPI creatinine equation. Calcium, Total, S 7.4 (L) 8.8 - 10.2 mg/dL 05/26/2021 8:07 AM DRUM DRIER OPERATOR DTL Glucose, S 100 70 - 140 mg/dL 05/26/2021 8:07 AM DRUM DRIER OPERATOR D TL Albumin, S 3.2 (L) 3.5 - 5.0 g/dL 05/26/2021 8:07 AM DRUM DRIER OPERATOR D TL Phosphorus (Inorganic), S 4.4 2.5 - 4.5 mg/dL 05/26/20 8:07 AM DRUM DRIER OPERATOR DTL Specimen Anatomical Collection Method Collection Time Receive d Time (Source) Location / / Volume Laterality Blood (Blood, 05/26/2021 6:06 AM 05/26/20 7:23 Venous) DRUM DRIER OPERATOR AM DRUM DRIER OPERATOR Suzette Henson M.D. LAB BLOOD ADD-ON Performing Organization Address City/State/ZIP Code Phon e Number [facility] - [address] [place], [place] [address] [facility] [place] [address] [facility] [address] [facility] (ABNORMAL) CBC with Differential, Blood (05/26/2021 6:06 AM DRUM DRIER OPERATOR) [facility] gist Method Time Signature Hemoglobin 7.2 (L) 13.2 - 05/26/2021 DTL 16.6 g/dL 7:22 AM DRUM DRIER OPERATOR Hematocrit 21.3 (L) 38.3 - 05/26/2021 DTL 48.6 % 7:22 AM DRUM DRIER OPERATOR Erythrocytes 2.28 (L) 4.35 - 05/26/2021 DTL 5.65 7:22 AM DRUM DRIER OPERATOR x10(12)/L MCV 93.4 78.2 - 05/26/2021 DTL 97.9 fL 7:22 AM DRUM DRIER OPERATOR RBC Distrib Width 13.9 11.8 - 05/26/2021 DTL 14.5 % 7:22 AM DRUM DRIER OPERATOR Platelet Count 182 135 - 317 05/26/2021 DTL x10(9)/L 7:22 AM DRUM DRIER OPERATOR Leukocytes 3.9 3.4 - 9.6 05/26/2021 DTL x10(9)/L 7:22 AM DRUM DRIER OPERATOR Neutrophils 2.92 1.56 - 05/26/2021 DTL 6.45 7:22 AM DRUM DRIER OPERATOR x10(9)/L Lymphocytes 0.46 (L) 0.95 - 05/26/2021 DTL 3.07 7:22 AM DRUM DRIER OPERATOR x10(9)/L Monocytes 0.46 0.26 - 05/26/2021 DTL 0.81 7:22 AM DRUM DRIER OPERATOR x10(9)/L Eosinophils 0.07 0.03 - 05/26/2021 DTL 0.48 7:22 AM DRUM DRIER OPERATOR x10(9)/L Basophils <0.03 0.01 - 05/26/2021 DTL 0.08 7:22 AM DRUM DRIER OPERATOR x10(9)/L Specimen Anatomical Collection Method Collection Time Receive d Time (Source) Location / / Volume Laterality Blood (Blood, 05/26/2021 6:06 AM 05/26/20 7:12 Venous) DRUM DRIER OPERATOR AM DRUM DRIER OPERATOR Suzette Henson M.D. LAB BLOOD ADD-ON Performing Organization Address City/[facility] Code Phon e Number [facility] - [address] [place], [place] [address] [facility] [place] [address] Laboratories-[address] Soluble Transferrin Receptor (sTfR) (05/26/2021 6:06 AM DRUM DRIER OPERATOR) P athologist Signature Soluble 2.2 1.8 - 4.6 05/26/2021 DTL Transferrin mg/L 11:21 AM DRUM DRIER OPERATOR Receptor (sTfR) Comment: ----ADDITIONAL INFORMATION---- It is reported that Americans may have slightly higher values. Specimen Anatomical Collection Method Collection Time Receive d Time (Source) Location / / Volume Laterality Blood (Blood, 05/26/2021 6:06 AM 05/26/20 21 7:23 Venous) DRUM DRIER OPERATOR AM DRUM DRIER OPERATOR Suzette Henson M.D. LAB BLOOD ADD-ON Performing Organization Address City/State/ZIP Code Phon e Number [facility] - [address] Transfuse Red Blood Cells : (05/25/2021 1:57 PM DRUM DRIER OPERATOR) Authorizing Provider Result Dotty Henson M.D. BLOOD TRANSFUSION ORDERABLES Transfuse Red Blood Cells : , 1 Units (05/25/2021 1:57 PM DRUM DRIER OPERATOR) Suzette Henson M.D. BLOOD TRANSFUSION ORDERABLES (ABNORMAL) Reticulocytes (05/25/2021 12:35 PM DRUM DRIER OPERATOR) Patholo gist Method Time Signature Reticulocytes, B 2.95 (H) 0.60 - 05/25/2021 DTL 2.71 % 1:06 PM DRUM DRIER OPERATOR Absolute 73.8 30.4 - 05/25/2021 DTL Reticulocyte 110.9 1:06 PM DRUM DRIER OPERATOR x10(9)/L Specimen Anatomical Collection Method Collection Time Receive d Time (Source) Location / / Volume Laterality Blood (Blood, 05/25/2021 12:35 05/25/2021 Venous) PM DRUM DRIER OPERATOR 12:58 PM DRUM DRIER OPERATOR Suzette Henson M.D. LAB BLOOD ADD-ON Performing Organization Address City/State/ZIP Code Phon e Number [facility] - [address] [place] [address] [address] (ABNORMAL) Morphology Evaluation (Special Smear) (05/25/2021 12:35 PM DRUM DRIER OPERATOR) Analysis Performed At Patho logist Time Signature Neutrophilic Segs 79 (H) 50 - 75 % 05/25/2021 DHPM and Bands 2:14 PM DRUM DRIER OPERATOR Lymphocytes 8 (L) 18 - 42 % 05/25/2021 DHPM 2:14 PM DRUM DRIER OPERATOR Monocytes 10 2 - 11 % 05/25/2021 DHPM 2:14 PM DRUM DRIER OPERATOR Eosinophils 2 1 - 3 % 05/25/2021 DHPM 2:14 PM DRUM DRIER OPERATOR Myelocytes 1 (H) <0.5 % 05/25/2021 DHPM 2:14 PM DRUM DRIER OPERATOR Manual Absolute 2.84 1.56 - 05/25/2021 DHPM Neutrophil Count 6.45 2:14 PM DRUM DRIER OPERATOR x10(9)/L Comment: ----ADDITIONAL INFORMATION---- The manual absolute neutrophil count is derived from a manual differential count and therefore is not exactly comparable to the automated absolute rui trophil count. Interpretation SeeComment 05/25/2021 2:14 PM DRUM DRIER OPERATOR D HPM Comment: No morphologic features of hemo lysis are seen. Reviewed by: Tech 05/25/2021 2:14 PM DRUM DRIER OPERATOR [facility] Specimen Anatomical Collection Method Collection Time Receive d Time (Source) Location / / Volume Laterality Blood (Blood, 05/25/2021 12:35 05/25/2021 Venous) PM DRUM DRIER OPERATOR 12:58 PM DRUM DRIER OPERATOR Suzette Henson M.D. LAB BLOOD ADD-ON Performing Organization Address City/[facility] Code Phon e Number [facility] - [address] [place], [place] [address] [place] [address] Laboratories-[place] [address] [address] [facility] (ABNORMAL) LD (Lactate Dehydrogenase) (05/25/2021 12:35 PM DRUM DRIER OPERATOR) [facility] Trudy 283 (H) 122 - 222 05/25/2021 DT LD U/L 1:50 PM DRUM DRIER OPERATOR Specimen Anatomical Collection Method Collection Time Receive d Time (Source) Location / / Volume Laterality Blood (Blood, 05/25/2021 12:35 05/25/2021 1:34 Venous) PM DRUM DRIER OPERATOR PM DRUM DRIER OPERATOR Suzette Henson M.D. LAB BLOOD NON ADD -ON Performing Organization Address City/State/[facility] Code Phon e Number [facility] - [address] [place], [place] [address] [place] [address] [facility] [address] Haptoglobin (05/25/2021 12:35 PM DRUM DRIER OPERATOR) [facility] Haptoglobin, S 78 30 - 200 05/25/2021 SDSC mg/dL 4:51 PM DRUM DRIER OPERATOR Specimen Anatomical Collection Method Collection Time Receive d Time (Source) Location / / Volume Laterality Blood (Blood, 05/25/2021 12:35 05/25/2021 4:20 Venous) PM DRUM DRIER OPERATOR PM DRUM DRIER OPERATOR Suzette Henson M.D. LAB BLOOD ADD-ON Performing Organization Address City/State/ZIP Code Phon e Number [facility] [address] [place], [place] [address] [facility] [place] [address] Laboratory Medicine and Pathology [address] [place] (ABNORMAL) CBC with Differential, Blood (05/25/2021 12:35 PM DRUM DRIER OPERATOR) [facility] gist Method Time Signature Hemoglobin 7.8 (L) 13.2 - 05/25/2021 DTL 16.6 g/dL 1:06 PM DRUM DRIER OPERATOR Hematocrit 23.7 (L) 38.3 - 05/25/2021 DTL 48.6 % 1:06 PM DRUM DRIER OPERATOR Erythrocytes 2.50 (L) 4.35 - 05/25/2021 DTL 5.65 1:06 PM DRUM DRIER OPERATOR x10(12)/L MCV 94.8 78.2 - 05/25/2021 DTL 97.9 fL 1:06 PM DRUM DRIER OPERATOR RBC Distrib Width 13.8 11.8 - 05/25/2021 DTL 14.5 % 1:06 PM DRUM DRIER OPERATOR Platelet Count 188 135 - 317 05/25/2021 DTL x10(9)/L 1:06 PM DRUM DRIER OPERATOR Leukocytes 3.6 3.4 - 9.6 05/25/2021 DTL x10(9)/L 1:06 PM DRUM DRIER OPERATOR Neutrophils 2.78 1.56 - 05/25/2021 DTL 6.45 1:06 PM DRUM DRIER OPERATOR x10(9)/L Lymphocytes 0.32 (L) 0.95 - 05/25/2021 DTL 3.07 1:06 PM DRUM DRIER OPERATOR x10(9)/L Monocytes 0.42 0.26 - 05/25/2021 DTL 0.81 1:06 PM DRUM DRIER OPERATOR x10(9)/L Eosinophils 0.07 0.03 - 05/25/2021 DTL 0.48 1:06 PM DRUM DRIER OPERATOR x10(9)/L Basophils <0.03 0.01 - 05/25/2021 DTL 0.08 1:06 PM DRUM DRIER OPERATOR x10(9)/L Specimen Anatomical Collection Method Collection Time Receive d Time (Source) Location / / Volume Laterality Blood (Blood, 05/25/2021 12:35 05/25/2021 Venous) PM DRUM DRIER OPERATOR 12:58 PM DRUM DRIER OPERATOR Suzette Henson M.D. LAB BLOOD ADD-ON Performing Organization Address City/[facility]/ZIP Code Phon e Number [facility] - [address] [place], [place] [address] [facility] [place] [address] Laboratories-[facility] [address] (ABNORMAL) Tacrolimus, B (05/25/2021 5:05 AM DRUM DRIER OPERATOR) athologist Signature Tacrolimus, B 2.1 (L) 5.0-15.0 05/25/2021 [facility] (Trough) 12:36 PM DRUM DRIER OPERATOR ng/mL Comment: ----ADDITIONAL INFORMATION---- Target steady-state trough concentration s vary depending on the type of transplant, concomitant immunosuppressio n, clinical/institutional protocols, and time post-transplant. Results should be interpreted in conjunction with this clinical information and any physic al signs/symptoms of rejection/toxicity. Testing performed by Liquid Chromatograp hy-Tandem Mass Spectrometry (LC-MS/MS). This test was developed and its performa nce characteristics determined by [facility] in a manner consistent with CLIA requirements. This test has not been cleared or approved by the U.S. Mer d and Drug Administration. Specimen Anatomical Collection Method Collection Time Receive d Time (Source) Location / / Volume Laterality Blood (Blood, 05/25/2021 5:05 AM 05/25/20 8:23 Venous) DRUM DRIER OPERATOR AM DRUM DRIER OPERATOR Suzette Henson M.D. LAB BLOOD NON ADD -ON Performing Organization Address City/State/ZIP Code Phon e Number [facility] [address] [place], [place] [address] [facility] [place] [address] Laboratory Medicine and Pathology [address] [place] (ABNORMAL) Magnesium (05/25/2021 5:05 AM DRUM DRIER OPERATOR) athologist Signature Magnesium, S 2.5 (H) 1.7 - 2.3 05/25/2021 DTL mg/dL 6:16 AM DRUM DRIER OPERATOR Specimen Anatomical Collection Method Collection Time Receive d Time (Source) Location / / Volume Laterality Blood (Blood, 05/25/2021 5:05 AM 05/25/20 21 5:58 Venous) DRUM DRIER OPERATOR AM DRUM DRIER OPERATOR Suzette Henson M.D. LAB BLOOD ADD-ON Performing Organization Address City/State/ZIP Code Phon e Number [facility] - [address] [place] [address] Laboratories-[address] (ABNORMAL) Phosphorus Inorganic (05/25/2021 5:05 AM DRUM DRIER OPERATOR) P athologist Signature Phosphorus 4.9 (H) 2.5 - 4.5 05/25/2021 DTL (Inorganic), S mg/dL 6:16 AM DRUM DRIER OPERATOR Specimen Anatomical Collection Method Collection Time Receive d Time (Source) Location / / Volume Laterality Blood (Blood, 05/25/2021 5:05 AM 05/25/20 5:58 Venous) DRUM DRIER OPERATOR AM DRUM DRIER OPERATOR Suzette Henson M.D. LAB BLOOD ADD-ON Performing Organization Address City/[facility] Code Phon e Number [facility] - [address] [place] [address] Laboratories-[address] (ABNORMAL) CBC with Differential, Blood (05/25/2021 5:05 AM DRUM DRIER OPERATOR) Patholo gist Method Time Signature Hemoglobin 6.5 (L) 13.2 - 05/25/2021 DTL 16.6 g/dL 5:51 AM DRUM DRIER OPERATOR Hematocrit 20.3 (L) 38.3 - 05/25/2021 DTL 48.6 % 5:51 AM DRUM DRIER OPERATOR Erythrocytes 2.14 (L) 4.35 - 05/25/2021 DTL 5.65 5:51 AM DRUM DRIER OPERATOR x10(12)/L MCV 94.9 78.2 - 05/25/2021 DTL 97.9 fL 5:51 AM DRUM DRIER OPERATOR RBC Distrib Width 13.8 11.8 - 05/25/2021 DTL 14.5 % 5:51 AM DRUM DRIER OPERATOR Platelet Count 156 135 - 317 05/25/2021 DTL x10(9)/L 5:51 AM DRUM DRIER OPERATOR Leukocytes 3.0 (L) 3.4 - 9.6 05/25/2021 DTL x10(9)/L 5:51 AM DRUM DRIER OPERATOR Neutrophils 2.15 1.56 - 05/25/2021 DTL 6.45 5:51 AM DRUM DRIER OPERATOR x10(9)/L Lymphocytes 0.38 (L) 0.95 - 05/25/2021 DTL 3.07 5:51 AM DRUM DRIER OPERATOR x10(9)/L Monocytes 0.41 0.26 - 05/25/2021 DTL 0.81 5:51 AM DRUM DRIER OPERATOR x10(9)/L Eosinophils 0.08 0.03 - 05/25/2021 DTL 0.48 5:51 AM DRUM DRIER OPERATOR x10(9)/L Basophils <0.03 0.01 - 05/25/2021 DTL 0.08 5:51 AM DRUM DRIER OPERATOR x10(9)/L Specimen Anatomical Collection Method Collection Time Receive d Time (Source) Location / / Volume Laterality Blood (Blood, 05/25/2021 5:05 AM 05/25/20 21 5:43 Venous) DRUM DRIER OPERATOR AM DRUM DRIER OPERATOR Suzette Henson M.D. LAB BLOOD ADD-ON Performing Organization Address City/State/ZIP Code Phon e Number [facility] - [address] [place], [place] [address] [facility] [place] [address] Laboratories-[facility] [address] [facility] (ABNORMAL) Basic Metabolic Panel (05/25/2021 5:05 AM DRUM DRIER OPERATOR) Analysis Performed At Patho logist Time Signature Potassium, S 4.1 3.6 - 5.2 05/25/2021 DTL mmol/L 6:16 AM DRUM DRIER OPERATOR Sodium, S 129 (L) 135 - 145 05/25/2021 DTL mmol/L 6:16 AM DRUM DRIER OPERATOR Chloride, S 95 (L) 98 - 107 05/25/2021 DTL mmol/L 6:16 AM DRUM DRIER OPERATOR Bicarbonate, S 20 (L) 22 - 29 05/25/2021 DTL mmol/L 6:16 AM DRUM DRIER OPERATOR Anion Gap 14 7 - 15 05/25/2021 DTL 6:16 AM DRUM DRIER OPERATOR BUN (Blood Urea 58 (H) 8 - 24 05/25/2021 DTL Nitrogen), S mg/dL 6:16 AM DRUM DRIER OPERATOR Creatinine 4.72 (H) 0.74 - 05/25/2021 DTL 1.35 mg/dL 6:20 AM DRUM DRIER OPERATOR eGFR-Non <15 (L) >=60 05/25/2021 DTL Black/ mL/min/BSA 6:20 AM DRUM DRIER OPERATOR [place] Comment: ----ADDITIONAL INFORMATION---- Estimated GFR calculated using the 2009 CKD_EPI creatinine equation. eGFR-Black/ <15 (L) >=60 mL/min/BSA 2020 6:20 AM DRUM DRIER OPERATOR DTL Comment: ----ADDITIONAL INFORMATION---- Estimated GFR calculated using the 2009 CKD_EPI creatinine equation. Calcium, Total, S 7.8 (L) 8.8 - 10.2 mg/dL 05/25/2021 6:16 AM DRUM DRIER OPERATOR DTL Glucose, S 117 70 - 140 mg/dL 05/25/2021 6:16 AM DRUM DRIER OPERATOR D TL Specimen Anatomical Collection Method Collection Time Receive d Time (Source) Location / / Volume Laterality Blood (Blood, 05/25/2021 5:05 AM 05/25/20 5:58 Venous) DRUM DRIER OPERATOR AM DRUM DRIER OPERATOR Suzette Henson M.D. LAB BLOOD ADD-ON Performing Organization Address City/State/ZIP Code Phon e Number [facility] - [address] [place] [address] [facility] [place] [place] [address] Laboratories-[facility] [address] [facility] (ABNORMAL) GI Pathogen Panel, PCR, Feces (05/24/2021 8:22 PM DRUM DRIER OPERATOR) [facility] Method Time Signature Specimen Source STOOL 05/24/2021 DTL 11:16 PM DRUM DRIER OPERATOR Campylobacter Negative Negative 05/24/2021 DTL species 11:16 PM DRUM DRIER OPERATOR C. difficile Positive (A) Negative 05/24/2021 DTL toxin 11:16 PM DRUM DRIER OPERATOR Comment: A positive C. difficile result may refle ct asymptomatic carriage or C. difficile-associated diar armando. Plesiomonas shigelloides Negative Negative 05/24/2021 11:1 6 PM DRUM DRIER OPERATOR DTL Salmonella species Negative Negative 05/24/2021 11:[address] DTL Vibrio species Negative Negative 05/24/2021 11:16 PM DRUM DRIER OPERATOR D TL Vibrio cholerae Negative Negative 05/24/2021 11:16 PM DRUM DRIER OPERATOR DTL Yersinia species Negative Negative 05/24/2021 11:16 PM DRUM DRIER OPERATOR DTL Enteroaggregative E. coli Negative Negative 05/24/2021 11: 16 PM DRUM DRIER OPERATOR DTL (EAEC) Enteropathogenic E. coli (EPEC) Positive (A) Negative 11:16 PM DRUM DRIER OPERATOR DTL Comment: A positive EPEC result may reflect eithe r asymptomatic carriage or diarrhea caused by EPEC. Enterotoxigenic E. coli (ETEC) Negative Negative 11:16 PM DRUM DRIER OPERATOR DTL Shiga toxin producing E. coli Negative Negative 05/24/2021 11:16 PM DRUM DRIER OPERATOR DTL Shigella/Enteroinvasive E. coli Negative Negative 05/24/20 11:16 PM DRUM DRIER OPERATOR DTL Cryptosporidium species Negative Negative 05/24/2021 11:16 PM DRUM DRIER OPERATOR DTL Cyclospora cayetanensis Negative Negative 05/24/2021 11:16 PM DRUM DRIER OPERATOR DTL Entamoeba histolytica Negative Negative 05/24/2021 11:16 P M DRUM DRIER OPERATOR DTL Giardia Negative Negative 05/24/2021 11:16 PM DRUM DRIER OPERATOR DTL Adenovirus F40/41 Negative Negative 05/24/2021 11:16 PM CS T DTL Astrovirus Negative Negative 05/24/2021 11:16 PM DRUM DRIER OPERATOR DTL Norovirus GI/GII Negative Negative 05/24/2021 11:16 PM DRUM DRIER OPERATOR DTL Rotavirus Ag, F Negative Negative 05/24/2021 11:16 PM DRUM DRIER OPERATOR DTL Sapovirus Negative Negative 05/24/2021 11:16 PM DRUM DRIER OPERATOR DTL Comment: ----ADDITIONAL INFORMATION---- This assay is performed using the FDA-cl eared FilmArray GI Panel ([employer] Semi-Urgent This is a semi-urgent result [facility] - () [facility] S Specimen Anatomical Collection Method Collection Time Receive d Time (Source) Location / / Volume Laterality Stool (Stool) 05/24/2021 8:22 PM 05/24/20 8:30 DRUM DRIER OPERATOR PM DRUM DRIER OPERATOR Suzette Henson M.D. LAB MICROBIOLOGY - GENERAL ORDERABLES Performing Organization Address City/State/ZIP Code Phon e Number [facility] - [facility] [address] [place], [place] [address] [facility] [place] [address] [facility] [address] ECG 12 Lead (05/24/2021 5:43 PM DRUM DRIER OPERATOR) P athologist Signature Ventricular Rate 58 BPM MUSE ECG/Min VT Interval 158 ms MUSE QRSD Interval 86 ms MUSE QT Interval 422 ms MUSE QTC Interval 414 ms MUSE P [place] 50 degrees MUSE R [place] 6 degrees MUSE T Wave [place] 51 degrees MUSE Specimen Anatomical Collection Method Collection Time Receive d Time (Source) Location / / Volume Laterality 05/24/2021 5:43 PM 5:45 DRUM DRIER OPERATOR PM DRUM DRIER OPERATOR Impressions MUSE - 05/24/2021 5:46 PM DRUM DRIER OPERATOR Sinus bradycardia Otherwise normal ECG When compared [...] tablet 81 mg Given 05/26/2021 8:25 AM DRUM DRIER OPERATOR 81 mg 81 mg, oral, Daily, First dose on 05/25/21 at 0900 Given 05/25/2021 8:36 AM DRUM DRIER OPERATOR 81 mg atorvastatin tablet 10 mg (LIPITOR) Given 05/25/2021 9:45 PM DRUM DRIER OPERATOR 10 mg 10 mg, oral, Daily at bedtime, First dose on Fri05/24/21 at 2100 Given 05/24/2021 9:15 PM DRUM DRIER OPERATOR 10 mg darbepoetin michelle-polysorbate Given 05/25/2021 6:54 PM 100 mcg Right Upper Arm injection 100 mcg (ARANESP) DRUM DRIER OPERATOR (Back) 100 mcg, subcutaneous, Once, On Fri05/25/21 at 1830, For 1 dose, Indications: anemia in agt-eeeznaoh-jebfblwnt chronic kidney disease doxazosin tablet 4 mg (CARDURA) Given 05/25/2021 9:45 PM DRUM DRIER OPERATOR 4 mg 4 mg, oral, Daily at bedtime, First dose on Fri05/24/21 at 2100 Given 05/24/2021 9:15 PM DRUM DRIER OPERATOR 4 mg ferumoxytoL 510 mg of iron New Bag 05/25/2021 7:37 PM DRUM DRIER OPERATOR 510 mg of iron 468 mL/hr in NaCl 0.9% IVPB (FERAHEME) 510 mg of iron, intravenous, at 468 mL/hr, Administer over 15 Minutes, Once, On Fri05/25/21 at 1900, For 1 dose, Restriction Criteria (Pharmacy will review and approve if criteria met): Treatment failure and/or intolerance to oral iron supplementation, Indications: iron deficiency anemia ferumoxytoL 510 mg of iron New Bag 05/26/2021 2:30 PM DRUM DRIER OPERATOR 510 mg of iron 468 mL/hr in NaCl 0.9% IVPB (FERAHEME) 510 mg of iron, intravenous, at 468 mL/hr, Administer over 15 Minutes, Once, On Fri05/26/21 at 1330, For 1 dose, Restriction Criteria (Pharmacy will review and approve if criteria met): Treatment failure and/or intolerance to oral iron supplementation, Indications: iron deficiency anemia heparin (porcine) Given 05/26/2021 6:55 AM DRUM DRIER OPERATOR 5,000 Units Right Upper Arm injection 5,000 Units (Back) 5,000 Units, subcutaneous, Every 8 hours scheduled, First dose on Fri05/24/21 at 2200 Given 05/25/2021 9:45 PM DRUM DRIER OPERATOR 5,000 Units Left Lower Abdomen Given 05/25/2021 1:10 PM DRUM DRIER OPERATOR 5,000 Units Left Upper Arm (Back) lamoTRIgine tablet 200 mg (LaMICtal) Given 05/26/2021 8:24 AM DRUM DRIER OPERATOR 200 mg 200 mg, oral, 2 times daily, First dose on Shraddha 05/24/21 at 2100 Given 05/25/2021 10:34 PM DRUM DRIER OPERATOR 200 mg Given 05/25/2021 8:36 AM DRUM DRIER OPERATOR 200 mg levothyroxine tablet 25 mcg (SYNTHROID, Given 05/26/2021 6:55 AM DRUM DRIER OPERATOR 25 mcg LEVOTHROID) 25 mcg, oral, Daily before breakfast, First dose on Fri05/25/21 at 0700 Given 05/25/2021 6:23 AM DRUM DRIER OPERATOR 25 mcg loratadine tablet 10 mg (CLARITIN) Given 05/25/2021 9:45 PM DRUM DRIER OPERATOR 10 mg 10 mg, oral, Daily at bedtime, First dose on Fri05/24/21 at 2100 Given 05/24/2021 9:15 PM DRUM DRIER OPERATOR 10 mg montelukast tablet 10 mg (SINGULAIR) Given 05/25/2021 9:45 PM DRUM DRIER OPERATOR 10 mg 10 mg, oral, Daily at bedtime, First dose on Fri05/24/21 at 2100 Given 05/24/2021 9:14 PM DRUM DRIER OPERATOR 10 mg multivitamin renal failure 100-1 mg 1 Given 05/25/2021 5:[address] 1 tablet tablet (DIALYVITE) 1 tablet, oral, Daily with dinner, First dose on Fri05/25/21 at 1700, give after dialysis on dialysis days mycophenolate tablet 500 mg (CELLCEPT) Given 05/26/2021 8:24 AM DRUM DRIER OPERATOR 500 mg 500 mg, oral, 2 times daily, First dose on Fri05/24/21 at 2100, HAZARDOUS - Handle with care. Swallow whole. Do NOT crush, chew or split tablet., Continuation of gumme-bs-arrznijns therapy? Yes Given 05/25/2021 9:45 PM DRUM DRIER OPERATOR 500 mg Given 05/25/2021 8:35 AM DRUM DRIER OPERATOR 500 mg NIFEdipine XL 24 hr tablet 90 mg (PROCARDIA Given 05/25/2021 9:4 4 PM DRUM DRIER OPERATOR 90 mg XL) 90 mg, oral, Daily at bedtime, First dose on Shraddha 05/24/21 at 2100, Swallow whole. Do NOT crush, chew, or split tablet. Given 05/24/2021 9:15 PM DRUM DRIER OPERATOR 90 mg ondansetron (PF) injection 4 mg (ZOFRAN) 4 mg, intravenous, Every 6 hours PRN, na usea, vomiting, Starting on Shraddha 05/24/21 at 1716 predniSONE tablet 5 mg (DELTASONE) Given 05/26/2021 8:25 AM DRUM DRIER OPERATOR 5 mg 5 mg, oral, Daily, First dose on Fri05/25/21 at 0900 Given 05/25/2021 8:36 AM DRUM DRIER OPERATOR 5 mg sodium bicarbonate 75 mEq in D5W New Bag 05/25/2021 7:50 PM CS T 100 mL/hr 100 mL/hr 1,075 mL infusion 100 mL/hr, intravenous, Continuous, Starting on Fri05/25/21 at 1900, For 4 hours sodium chloride 0.9 % injection 10 mL 10 mL, intravenous, As needed, line care, Starting on Shraddha 05/24/21 at 1715, Peripheral [...] injection 3 mL Given 05/26/2021 8:26 AM DRUM DRIER OPERATOR 3 mL 3 mL, intravenous, Every 12 hours scheduled, First dose on Shraddha 05/24/21 at 2100, Peripheral Intravenous Catheter and Rapid Infusion Catheter, when no infusion to maintain patency Given 05/25/2021 10:34 PM DRUM DRIER OPERATOR 3 mL Given 05/25/2021 8:39 AM DRUM DRIER OPERATOR 3 mL tacrolimus capsule 1 mg (PROGRAF) Given 05/26/2021 8:25 AM DRUM DRIER OPERATOR 1 mg 1 mg, oral, 2 times daily, First dose on Shraddha 05/24/21 at 2100 Given 05/25/2021 9:45 PM DRUM DRIER OPERATOR 1 mg Given 05/25/2021 8:35 AM DRUM DRIER OPERATOR 1 mg vancomycin capsule 125 mg (VANCOCIN) Given 05/26/2021 12:12 PM DRUM DRIER OPERATOR 125 mg 125 mg, oral, 4 times daily, First dose on Fri05/25/21 at 1700, For 10 days, Drug Monitoring Program: Pharmacist to adjust medication dosing based on indication and drug clearance factors., Indications: C. difficile infection Given 05/26/2021 8:25 AM DRUM DRIER OPERATOR 125 mg Given 05/25/2021 9:45 PM DRUM DRIER OPERATOR 125 mg documented in this encounter Active and Recently Administered Medications Times are shown in DRUM DRIER OPERATOR. Scheduled Medication Order 05/24/2021 05/25/2021 05/26/2021 aspirin [...] 1830, For 1 dose, Indications: anemia in zrg-yzuoklmk-jhvrlueoj chronic kidney disease doxazosin tablet 4 mg (CARDURA) 2114 (Given - Provider: Christina Chester R.N.) 2144 (Given - Provider: Fe Ansari R.N.) 4 mg, oral, Daily at bedtime, First dose on Fri05/24/21 at 2100 ferumoxytoL 510 mg of iron in NaCl 0.9% IVPB (FERAHEME) (COM PLETED) 1937 (New Bag - Provider: Fe Ansari R.N.) [...] Chester R.N.) 0836 (Given - Provider: Alan Lam)223 (Given - Provider: Fe Ansari R.N.) 0824 (Given - Provider: Eve Aggarwal R.N.) 200 mg, oral, 2 times daily, First dose on Shraddha 05/24/21 at 2100 levothyroxine tablet 25 mcg (SYNTHROID, LEVOTHROID) 622 (Given - Provider: Christina hCester R.N.) 0655 (Given - Provider: Mary Irizarry R.N.) 25 mcg, oral, Daily before breakfast, First dose on Fri05/25/21 at 0700 loratadine tablet 10 mg (CLARITIN) 2114 (Given - Provider: Ana Chester R.N.) 2144 (Given - Provider: Fe Ansari R.N.) 10 mg, oral, Daily at bedtime, First dose on Shraddha 05/24/21 at 2100 montelukast tablet 10 mg (SINGULAIR) [...] (Given - P rovider: Christina Chester R.N.) 0835 (Given - Provider: Alan Lam)2 145 (Given - Provider: Fe Ansari R.N.) 0824 (Given - Provider: Eve Aggarwal R.N.) 500 mg, oral, 2 times daily, First dose on Fri05/24/21 at 2100, HAZARDOUS - Handle with care. Swallow whole. Do NOT crush, chew or split tablet., Continuation of wdtzk-wr-yzexndbpk therapy? Yes NIFEdipine XL 24 hr tablet [...] Chester R.N.) 0835 (Given - Provider: Alan Lam)2145 (Given - Provider: Fe Ansari R.N.) 0825 (Given - Provider: Eve Aggarwal R.N.) 1 mg, oral, 2 times daily, First dose on Fri05/24/21 at 2100 torsemide tablet 30 mg (DEMADEX) [...] 174 4 (Given - Provider: Eve Aggarwal R.N.)2145 (Given - Provider: Fe Ansari R.N.) 0825 [...] 1-3 of 10, headaches, fever, Starting on Fri05/24/21 at 1716 ondansetron (PF) injection 4 mg [...] C. difficile 05/24/2021 05/24/2021 05/26/2021 3:18 PM DRUM DRIER OPERATOR Assessment Noted Time PHQ-9 Depression Total Score: 4 11/28/2020 10:17 AM CD T documented as of this encounter Care Teams Flight Mechanic Relationship Specialty Start Date End Date Elsewhere, Pcp PCP - General Family Medicine 07/29/17 [facility] - Laboratory Medicine 04/12/[address] [id number] documented as of this encounter
--- OUTSIDE RECORDS SUMMARY | 2022-05-17 18:39 | XMS_ITS | Encounter Summary ---
:1955 Author Organization [facility] Address [address] [place] [id number] Care Team Providers Name Role Phone Elsewhere, Pcp Primary Care Provider Unavailable Reason for Visit Outpatient (Routine) - Closed Specialty Diagnoses / Procedures Referred By Contact Refer red To Contact Diagnoses [facility]emia [facility] Procedures Colonoscopy C.N.P., D.N.P. [address] [place] [address] Referral ID Status Reason Start Date Expiration Date Visits Requ ested Visits Authorized [id number] Closed 05/22/2021 05/22/2022 1 1 Encounter Details Date Type Department Care Team Description 05/25/2021 Hospital Division of Hetal Barry (Stephy ent: [facility] [place], [place] RAMONA, C.N.P., [address] [place] [address] 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 Advanced RX vancomycin (VANCOCIN) Take 1 capsule (125 34 capsule 0 05/2605/26/2021 125 mg mg total) by mouth 4 capsuleIndications: C. (four) times a day difficile infection for 34 doses Indications: C. difficile infection. documented as of this encounter Plan of Treatment Upcoming Encounters Date Type Specialty Care Team Description 05/22/2022 Appointment Laboratory Medicine Angélica Granger P.A.-C. [address] [place] [phone] 05/23/2022 Clinical Admitting/Central Communication Scheduling 05/27/2022 Comprehensive Visit Orthopedic Surgery Markus Sams M.D., Ph.D. [address] [place] [phone] 05/29/2022 Office Visit Otorhinolaryngology Dex Matta APRN, C.N.P., M.S.N. [address] [place] [phone] 05/29/2022 Office Visit Otorhinolaryngology Nadeem Maradiaga P.A.-C., M.S. [address] [place] [phone] 05/31/2022 Appointment Radiology Guilherme Matt MPAS, P.A.-C., M.S. [address] [place] [phone] 06/05/2022 Appointment Laboratory Medicine Angélica Granger P.A.-C. [address] [place] [phone] 06/19/2022 Appointment Laboratory Medicine Angélica Granger P.A.-C. [address] [place] [phone] 07/03/2022 Appointment Laboratory Medicine Angélica Granger P.A.-C. [address] [place] [phone] 07/17/2022 Appointment Laboratory Medicine Angélica Granger P.A.-C. [address] [place] [phone] 07/31/2022 Appointment Laboratory Medicine Angélica Granger P.A.-C. [address] [place] [phone] 08/14/2022 Appointment Laboratory Medicine Angélica Granger P.A.-C. [address] [place] [phone] 08/28/2022 Appointment Laboratory Medicine Angélica Granger P.A.-C. [address] [place] [phone] documented as of this encounter Visit Diagnoses Not on filedocumented in this encounter Additional Health Concerns Assessment Noted Time PHQ-9 Depression Total Score: 4 11/28/2020 10:17 AM CD T documented as of this encounter Care Teams Assembly Line Leader Relationship Specialty Start Date End Date Elsewhere, Pcp PCP - General Family Medicine 07/29/17 [facility] - Laboratory Medicine 04/12/[address] [address] documented as of this encounter
--- OUTSIDE RECORDS SUMMARY | 2022-05-17 18:39 | XMS_ITS | Encounter Summary ---
:1955 Author Organization [facility] Address [address] [place] [address] Care Team Providers Name Role Phone Elsewhere, Pcp Primary Care Provider Unavailable Reason for Visit Reason Comments Liver Follow-up Encounter Details Date Type Department Care Team Description 05/26/2021 Documentation Piedad Lee [facility] M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 - 05/26/2021 11:24 AM CST Patient admitted to [facility] (LTS was not aware of this) for acute on chronic kidney failure and anemia. Discharging today 05/26. We will arrange for LTC-1 follow up as well. GEMENT DEPARTMENT CHAIR documented in this encounter Plan of Treatment Upcoming Encounters Date Type Specialty Care Team Description 05/22/2022 Appointment Laboratory Medicine Angélica Granger P.ADurgaCDemetrius [address] [place] [phone] 05/23/2022 Clinical Admitting/Central Communication Scheduling 05/27/2022 Comprehensive Visit Orthopedic Surgery Markus Sams M.D., Ph.D. [address] [place] [phone] 05/29/2022 Office Visit Otorhinolaryngology Dex Matta APRN, C.N.P., M.S.N. [address] [place] [phone] 05/29/2022 Office Visit Otorhinolaryngology Nadeem Maradiaga P.A.-C., M.S. [address] [place] [phone] 05/31/2022 Appointment Radiology Guilherme Matt MPAS, P.A.-C., M.S. [address] [place] [phone] 06/05/2022 Appointment Laboratory Medicine Angélica Granger P.A.-C. [address] [place] [phone] 06/19/2022 Appointment Laboratory Medicine Angélica Granger P.A.-C. [address] [place] [phone] 07/03/2022 Appointment Laboratory Medicine Angélica Granger P.A.-C. [address] [place] [phone] 07/17/2022 Appointment Laboratory Medicine Angélica Granger P.A.-C. [address] [place] [phone] 07/31/2022 Appointment Laboratory Medicine Angélica Granger P.A.-C. [address] [place] [phone] 08/14/2022 Appointment Laboratory Medicine Angélica Granger P.A.-C. [address] [place] [phone] 08/28/2022 Appointment Laboratory Medicine Angélica Granger P.A.-C. [address] [place] [phone] documented as of this encounter Visit Diagnoses Not on filedocumented in this encounter Additional Health Concerns Assessment Noted Time PHQ-9 Depression Total Score: 4 11/28/2020 10:17 AM CD T documented as of this encounter Care Teams Sap Mobility Architect Relationship Specialty Start Date End Date Elsewhere, Pcp PCP - General Family Medicine 07/29/17 [facility] - Laboratory Medicine 04/12/[address] [address] documented as of this encounter
--- OUTSIDE RECORDS SUMMARY | 2022-05-17 18:39 | XMS_ITS | Encounter Summary ---
:1955 Author Organization [facility] Address [address] [place] [address] Care Team Providers Name Role Phone Elsewhere, Pcp Primary Care Provider Unavailable Reason for Visit Reason Comments Shortness of Breath Encounter Details Date Type Department Care Team Description 05/23/2021 Emergency [facility] Colin, Mario Alberto, Du colbert (Primary Dx); Emergency Department M.D. Anemia [address] [place] [address] [address] [place] [address] [place], [place] [phone] Social History Tobacco Use Types Packs/Day Years [...] at Date Recorded Male 05/16/2020 4:27 PM CHILDREN'S LITERATURE PROFESSOR documented as of this encounter Last Filed Vital Signs Vital Sign Reading Time Taken Comments Blood Pressure 143/80 05/23/2021 3:00 PM CHILDREN'S LITERATURE PROFESSOR Pulse 74 05/23/2021 3:00 PM CHILDREN'S LITERATURE PROFESSOR Temperature 36.9 ??C (98.4 ??F) 05/23/2021 11:45 AM CHILDREN'S LITERATURE PROFESSOR Respiratory Rate 20 05/23/2021 11:16 AM CHILDREN'S LITERATURE PROFESSOR Oxygen Saturation 97% 05/23/2021 3:00 PM CHILDREN'S LITERATURE PROFESSOR Inhaled Oxygen Concentration - - Weight 74.7 kg (164 lb 10.9 oz) 05/23/2021 11:14 AM CHILDREN'S LITERATURE PROFESSOR Height - - Body Mass Index 24.45 01/12/2021 9:49 AM CDT documented in this encounter Discharge Instructions Discharge InstructionsAnastasia Germain - 05/23/2021 3:06 PM CST Take a copy of this dismissal summary to your appointment(s). [place] May 24, 2021 - - 10:30 am - Hospital Follow-Up with Dr. Weston Carey, primary care provider, at [facility] RECOMMENDATIONS: * Please have labs drawn at time of this appointment [place], [place] You may have outpatient appointments at [facility] that changed during your hospitalization. Refer to your [facility] Patient Appointment Guide (PAG) for the most current schedule of appointments anddetailed instructions of tests/procedures. Call [phone], if you did not receive a PAG or need to CANCEL any [facility] appointment(s). DREN'S LITERATURE PROFESSOR documented in this encounter Medications at Time [...] hours as needed for nausea or vomiting. amoxicillin (AMOXIL) Take 4 capsules by 0 [...] 11 g/dL. Give once every 28 days. budesonide (Pulmicort) Mix 1 ampule in [...] drops (4 drops total) x 14 days predniSONE (DELTASONE) Take 1 tablet (5 mg 90 tablet 3 06/2406/29/2021 5 mg tabletIndications: total) by mouth Transplant Liver (HCC), daily. Medication Therapy Group Home Not Anticoagulant Spiriva Respimat 2.5 INHALE 2 PUFFS BY 4 g 0 01/09/20 21 07/26/2021 mcg/actuation inhaler MOUTH DAILY tacrolimus (PROGRAF) Take 2 capsules (1 360 capsule 3 202007/16/2021 0.5 mg mg total) by mouth 2 capsuleIndications: (two) times a day. Transplant Liver (HCC), Medication Therapy Body Wirer Not Anticoagulant torsemide (DEMADEX) 10 Take 3 tablets (30 270 tablet 3 02/2205/26/2021 mg tablet mg total) by mouth daily. albuterol (ACCUNEB) 2.5 Inhale 3 mL (2.5 mg 540 mL 0 01/202105/24/2021 mg /3 mL nebulizer total) by solution nebulization 2 (two) times a day. cholecalciferol Take 1 capsule by 0 03/05/2013 (VITAMIN D3) 50 mcg mouth daily. (2,000 Unit) capsule [id number] Drink 1st portion of 1 kit 0 05/21/202107/2020 [id number] prep at 6 PM the (MOVIPREP) evening [...] daily with ofloxacin drops x 14 days sodium chloride USE 4 ML VIA 0 08/30/2020 021 (NEBUSAL) 3 % nebulizer NEBULIZER TWICE solution DAILY UNABLE TO FIND by nasal 0 10/12/2021 (alternating) route 2 (two) times a day. Azelastine 1mg to Sinus Rinse twice daily. [facility] documented as of this encounter Consult Notes Francesca Cordova M.D. - 05/23/2021 1:27 PM CST ---------Miscellaneous [facility] ED consult Service Note-------- Mr. Bruce Singh a chart review was completed. The patient was not seen or evaluated by the [facility] EDConsult Team. Chart review and discussion with [...] has a primary care doctor appointment in [facility] at 10:30 a.m. He also has a BMP and a CBC with this appointment. 4. I will keep in communication with Padmini Barry APRN, C.N.P., LouieNDemetriusP regarding the patient's trajectory. We appreciate the collaborative care with the [facility] ED in the management of Mr. Bruce Singh. If any questions or concerns, feel free to page [phone] HIM ED Consult Team between the hours of 7a-4p. Addendum: 05/24/21 1 pm: I spoke with Dr. Carey from [facility] regarding Mr. Singh and reviewed [...] patient was instructed to present to the [facility] desk at 3:30 pm. He is aware that he may lose his outpatient colonoscopy spot for tomorrow depending on his renal function and procedure availability in the hospital. He has my phone number for any questions or concerns. DREN'S LITERATURE PROFESSOR documented in this encounter ED Notes Mario [...] Mario Alberto Shaw M.D. 05/25/21915 Mario Alberto Shaw M.D. 05/25/21915 DREN'S LITERATURE PROFESSOR Sagar Alfonso M.D. - 05/23/2021 11:47 AM CST CHIEF COMPLAINT Shortness of Breath HISTORY OF PRESENTING ILLNESS Mr. Singh is a very pleasant 65 y.o. 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 [...] 1.4 1458 Sodium, P(!): 125 1509 The [facility] team has been very helpful scheduling follow-up [...] radiology report(s). Sagar Alfonso M.D. Resident 05/23/212136 DREN'S LITERATURE PROFESSOR Margoth Haywood R.N. - 05/23/2021 11:23 AM CST Pt states he went to his PCP for blood work today after having bloody stools. He was informed to come here after his Hgb was found to be 6.7. VSS. Margoth Haywood R.N. 05/23/21 1125 DREN'S LITERATURE PROFESSOR documented in this encounter Plan of Treatment Upcoming Encounters Date Type Specialty Care Team Description 05/22/2022 Appointment Laboratory Medicine Angélica Granger P.A.-C. [address] [place] [phone] 05/23/2022 Clinical Admitting/Central Communication Scheduling 05/27/2022 Comprehensive Visit Orthopedic Surgery Markus Sams M.D., Ph.D. [address] [place] [phone] 05/29/2022 Office Visit Otorhinolaryngology Dex Matta APRN, C.NDemetriusP., M.S.N. [address] [place] [phone] 05/29/2022 Office Visit Otorhinolaryngology Nadeem Maradiaga, Edmundo, M.S. [address] [place] [phone] 05/31/2022 Appointment Radiology Guilherme Matt, RASTA, Edmundo, M.S. [address] [place] [phone] 06/05/2022 Appointment Laboratory Medicine Angélica Granger P.A.-C. [address] [place] [phone] 06/19/2022 Appointment Laboratory Medicine Angélica Granger P.A.-C. [address] [place] [phone] 07/03/2022 Appointment Laboratory Medicine Angélica Granger P.A.-C. [address] [place] [phone] 07/17/2022 Appointment Laboratory Medicine Angélica Granger P.A.-C. [address] [place] [phone] 07/31/2022 Appointment Laboratory Medicine Angélica Granger P.A.-C. [address] [place] [phone] 08/14/2022 Appointment Laboratory Medicine Angélica Granger P.A.-C. [address] [place] [phone] 08/28/2022 Appointment Laboratory Medicine Angéilca Granger P.A.-C. [address] [place] [phone] documented as of this encounter Procedures Procedure Name Priority Date/Time Associated Comments Diagnosis LACTATE, B/P Timed 05/23/2021 1:52 Results for PM CHILDREN'S LITERATURE PROFESSOR this procedure are in the results section. TROPONIN T, 2H/6H, Timed 05/23/2021 1:05 Result s for 5TH GEN, P PM CHILDREN'S LITERATURE PROFESSOR this procedure are in the results section. BACTERIA / RIMMA STAT 05/23/2021 1:05 Result s for CULTURE, BLOOD PM CHILDREN'S LITERATURE PROFESSOR this procedur e are in the results section. LACTATE, POCT, B Routine 05/23/2021 12:55 Results for PM CHILDREN'S LITERATURE PROFESSOR this procedure are in the results section. LACTATE, POCT, B STAT 05/23/2021 12:55 Results for PM CHILDREN'S LITERATURE PROFESSOR this procedure are in the results section. BACTERIA / RIMMA STAT 05/23/2021 12:54 Resul ts for CULTURE, BLOOD PM CHILDREN'S LITERATURE PROFESSOR this procedur e are in the results section. BACTERIAL CULTURE, STAT 05/23/2021 12:39 Resul ts for AEROBIC + SUSC, RESP PM CHILDREN'S LITERATURE PROFESSOR this pr ocedure are in the results section. MYCOBACTERIAL STAT 05/23/2021 12:39 Results fo r CULTURE, V PM CHILDREN'S LITERATURE PROFESSOR this procedure are in the results section. FUNGAL SMEAR STAT 05/23/2021 12:39 Results for PM CHILDREN'S LITERATURE PROFESSOR this procedure are in the results section. ACID FAST SMEAR FOR STAT 05/23/2021 12:39 Resu lts for MYCOBACTERIUM PM CHILDREN'S LITERATURE PROFESSOR this procedure are in the results section. GRAM STAIN STAT 05/23/2021 12:39 Results for PM CHILDREN'S LITERATURE PROFESSOR this procedure are in the results section. FUNGAL CULTURE, STAT 05/23/2021 12:39 Results for ROUTINE PM CHILDREN'S LITERATURE PROFESSOR this procedure are in the results section. DX CHEST AP OR PA RAD - Semiurgent 05/23/2021 12:00 Re sults for AND LATERAL 2 VIEWS (Fast; most ED PM CHILDREN'S LITERATURE PROFESSOR this p rocedure patients; some are in the inpatients) results section. VBG & LYTES CG8+, Routine 05/23/2021 11:37 Result s for POCT, B AM CHILDREN'S LITERATURE PROFESSOR this procedure are in the results section. TROPONIN T, STAT 05/23/2021 11:37 Results for BASELINE, 5TH GEN, P AM CHILDREN'S LITERATURE PROFESSOR this pr ocedure are in the results section. HEPATIC FUNCTION STAT 05/23/2021 11:37 Results for PANEL, S AM CHILDREN'S LITERATURE PROFESSOR this procedure are in the results section. BLOOD GAS, POCT, B STAT 05/23/2021 11:37 Resul ts for AM CHILDREN'S LITERATURE PROFESSOR this procedure are in the results section. PROTHROMBIN TIME STAT 05/23/2021 11:37 Results for (PT), P AM CHILDREN'S LITERATURE PROFESSOR this procedure are in the results section. CBC WITH STAT 05/23/2021 11:37 Results for DIFFERENTIAL, B AM CHILDREN'S LITERATURE PROFESSOR this procedu re are in the results section. TYPE AND SCREEN STAT 05/23/2021 11:37 Results for AM CHILDREN'S LITERATURE PROFESSOR this procedure are in the results section. LACTATE, B/P STAT 05/23/2021 11:37 Results for AM CHILDREN'S LITERATURE PROFESSOR this procedure are in the results section. AMMONIA STAT 05/23/2021 11:37 Results for AM CHILDREN'S LITERATURE PROFESSOR this procedure are in the results section. BASIC METABOLIC STAT 05/23/2021 11:37 Results for PANEL, S/P AM CHILDREN'S LITERATURE PROFESSOR this procedure are in the results section. SARS CORONAVIRUS 2, STAT 05/23/2021 11:22 Resu lts for PCR RAPID, V AM CHILDREN'S LITERATURE PROFESSOR this procedure are in the results section. ECG STAT 05/23/2021 11:17 Results for AM CHILDREN'S LITERATURE PROFESSOR this procedure are in the results section. documented in this encounter Results Lactate, 3 hour draw (05/23/2021 1:52 PM CHILDREN'S LITERATURE PROFESSOR) P athologist Signature Lactate, P 1.4 0.5 - 2.2 05/23/2021 [facility] mmol/L 2:16 PM CHILDREN'S LITERATURE PROFESSOR Specimen Anatomical Collection Method Collection Time Receive d Time (Source) Location / / Volume Laterality Blood (Blood, 05/23/2021 1:52 PM 05/23/20 21 2:02 Venous) CHILDREN'S LITERATURE PROFESSOR PM CHILDREN'S LITERATURE PROFESSOR Magda Redding M.D. LAB BLOOD NON ADD-ON Performing Organization Address City/[facility] Phon e Number [facility] - [address] STMA [place] [address] [address] Bacteria / Rimma Culture, Blood #1 (05/23/2021 1:05 PM CHILDREN'S LITERATURE PROFESSOR) [facility] Method Time Signature Bacteria/Negar No growth 05/28/2021 [facility] da Culture, after 5 2:02 PM CHILDREN'S LITERATURE PROFESSOR Blood days of incubation. Specimen (Source) Anatomical Collection Method Collection Time Re ceived Time Location / / Volume Laterality Blood (Blood, 05/23/2021 1:05 05/23/2021 1:56 Peripheral Draw) PM CHILDREN'S LITERATURE PROFESSOR PM CHILDREN'S LITERATURE PROFESSOR Comment: Specimen Source Site: Blood Sagar Fall M.D. LAB MICROBIOLOGY - GENER AL ORDERABLES Performing Organization Address [facility] Phon e Number [facility] - [address] [place] [address] (ABNORMAL) Troponin T, 2H/6H, 5th Gen (05/23/2021 1:05 PM CHILDREN'S LITERATURE PROFESSOR) [facility] Method [place]urtain Signature Troponin T, 2 45 (H) <=15 ng/L 05/23/2021 [facility] hr, 5th gen 1:54 PM CHILDREN'S LITERATURE PROFESSOR 2H Delta -3 ng/L 05/23/2021 [facility] 1:54 PM CHILDREN'S LITERATURE PROFESSOR 2H Delta Not Changing 05/23/2021 [facility] Interp 1:54 PM CHILDREN'S LITERATURE PROFESSOR Troponin T, 6 CANCELED ng/L 05/23/2021 [facility] hr, 5th gen 1:54 PM CHILDREN'S LITERATURE PROFESSOR Comment: Result canceled by the ancillar y. Specimen Anatomical Collection Method Collection Time Receive d Time (Source) Location / / Volume Laterality Blood (Blood, 05/23/2021 1:05 PM 05/23/20 21 1:11 Venous) CHILDREN'S LITERATURE PROFESSOR PM CHILDREN'S LITERATURE PROFESSOR Narrative [facility] - [facility] - 05/23/2021 1:54 PM CHILDREN'S LITERATURE PROFESSOR Specimen Information: Specimen ID: [id number] Specimen Type: Blood Specimen Collection Start Date: 05/23/20 21 ??1:05 PM Specimen Received Date: 05/23/2021 ??1:1 1 PM Specimen ID: [id number] Specimen Type: Blood Magda Redding M.D. LAB BLOOD TROPONIN Performing Organization Address City/[facility]/ZIP Code Phon e Number [facility] - [address] [place], [place] [address] [facility] [place] [address] [facility] [address] Lactate, POCT (05/23/2021 12:55 PM CHILDREN'S LITERATURE PROFESSOR) P athologist Signature Lactate, POCT 0.93 0.50 - 05/23/2021 PCLX 2.20 1:13 PM CHILDREN'S LITERATURE PROFESSOR mmol/L Sample Site, Venstick 05/23/2021 PCLX POCT 1:13 PM CHILDREN'S LITERATURE PROFESSOR Specimen Anatomical Collection Method Collection Time Receive d Time (Source) Location / / Volume Laterality Blood 05/23/2021 12:55 05/23/2021 1:13 PM CHILDREN'S LITERATURE PROFESSOR PM CHILDREN'S LITERATURE PROFESSOR Unknown Provider LAB POCT ORDERABLES - DEVICE Performing Organization Address City/[facility]/ZIP [facility] Phon e Number [facility] [address] [place] [address] [place] [address] [facility] [address] [facility] Lactate, POCT (05/23/2021 12:55 PM CHILDREN'S LITERATURE PROFESSOR) Analysis Performed At Patho logist Time Signature Lactate, POCT Collected DEFAULT 05/23/2021 SMLX 12:55 PM CHILDREN'S LITERATURE PROFESSOR Specimen Anatomical Collection Method Collection Time Receive d Time (Source) Location / / Volume Laterality Blood (Blood, 05/23/2021 12:55 05/23/2021 Venous) PM CHILDREN'S LITERATURE PROFESSOR 12:55 PM CHILDREN'S LITERATURE PROFESSOR Sagar Fall M.D. LAB POCT ORDERABLES - DE VICE Performing Organization Address City/[facility]/ZIP Code Phon e Number [facility] - [address] [place], [place] [address] [facility] [place] [address] [facility] [address] Bacteria / Rimma Culture, Blood # 2 (05/23/2021 12:54 PM CHILDREN'S LITERATURE PROFESSOR) Patholo gist Method Time Signature Bacteria/Negar No growth 05/28/2021 DTL da Culture, after 5 2:02 PM CHILDREN'S LITERATURE PROFESSOR Blood days of incubation. Specimen (Source) Anatomical Collection Method Collection Time Re ceived Time Location / / Volume Laterality Blood (Blood, 05/23/2021 12:54 05/23/2021 1:57 Peripheral Draw) PM CHILDREN'S LITERATURE PROFESSOR PM CHILDREN'S LITERATURE PROFESSOR Comment: Specimen Source Site: Blood Sagar Fall M.D. LAB MICROBIOLOGY - GENER AL ORDERABLES Performing Organization Address City/[facility]/ZIP [facility] Phon e Number [facility] - [address] [place], [place] [address] [place] [address] [facility] Mycobacterial Culture (05/23/2021 12:39 PM CHILDREN'S LITERATURE PROFESSOR) [facility] Method Time Signature Mycobacterial No growth 07/05/2021 DTL Culture after 42 1:01 AM CHILDREN'S LITERATURE PROFESSOR days of incubation . Specimen Anatomical Collection Method Collection Time Receive d Time (Source) Location / / Volume Laterality Sputum (Sputum) 05/23/2021 12:39 05/23/20 21 1:31 PM CHILDREN'S LITERATURE PROFESSOR PM CHILDREN'S LITERATURE PROFESSOR Comment: Specimen Source Site: Sputum Sagar Fall M.D. LAB MICROBIOLOGY - GENER AL ORDERABLES Performing Organization Address City/[facility]/ZIP Code Phon e Number [facility] - [address] [place], [place] [address] [place] [address] [place] [phone] [place] [address] [facility] Acid Fast Smear For Mycobacterium (05/23/2021 12:39 PM CHILDREN'S LITERATURE PROFESSOR) [facility] [employer] Method Time Signature Acid Fast Smear Negative. 05/23/2021 DTL For Mycobacterium 10:14 PM CHILDREN'S LITERATURE PROFESSOR Specimen Anatomical Collection Method Collection Time Receive d Time (Source) Location / / Volume Laterality Sputum (Sputum) 05/23/2021 12:39 05/23/20 21 1:31 PM CHILDREN'S LITERATURE PROFESSOR PM CHILDREN'S LITERATURE PROFESSOR Comment: Specimen Source Site: Sputum Sagar Fall M.D. LAB MICROBIOLOGY - GENER AL ORDERABLES Performing Organization Address City/[facility]/ZIP Code Phon e Number [facility] - [address] [place], [place] [address] [facility] [place] [address] (ABNORMAL) Fungal Culture, Routine (05/23/2021 12:39 PM CHILDREN'S LITERATURE PROFESSOR) [facility] Method Time Signature Fungal ASPERGILLUS VERSICOLOR COMPLEX DTL Culture, Few 12:27 PM CHILDREN'S LITERATURE PROFESSOR Routine (A) Comment: Susceptibility testing is not indicated for all molds. Infectious Diseases consult is required to order mold susceptibility testing. Specimen Anatomical Collection Method Collection Time Receive d Time (Source) Location / / Volume Laterality Sputum (Sputum) 05/23/2021 12:39 05/23/20 21 1:31 PM CHILDREN'S LITERATURE PROFESSOR PM CHILDREN'S LITERATURE PROFESSOR Comment: Specimen Source Site: Sputum Sagar Fall M.D. LAB MICROBIOLOGY - GENER AL ORDERABLES Performing Organization Address City/[facility] Phon e Number [id number] [place] [address] Fungal Smear (05/23/2021 12:39 PM CHILDREN'S LITERATURE PROFESSOR) athologist Signature Fungal Smear Negative. 05/23/2021 DTL 6:34 PM CHILDREN'S LITERATURE PROFESSOR Specimen Anatomical Collection Method Collection Time Receive d Time (Source) Location / / Volume Laterality Sputum (Sputum) 05/23/2021 12:39 05/23/20 21 1:31 PM CHILDREN'S LITERATURE PROFESSOR PM CHILDREN'S LITERATURE PROFESSOR Comment: Specimen Source Site: Sputum Sagar Fall M.D. LAB MICROBIOLOGY - GENER AL ORDERABLES Performing Organization Address City/[facility]/ZIP [facility] Phon e Number [address] (ABNORMAL) Bacterial Culture, Aerobic + Susc, Resp (05/23/2021 12:39 PM CHILDREN'S LITERATURE PROFESSOR) [facility] Method Time Signature Bacterial With usual 05/28/2021 DTL Culture, efrem (A) 1:13 PM CHILDREN'S LITERATURE PROFESSOR Aerobic, Resp Bacterial SERRATIA MARCESCENS 05/28/2021 DTL Culture, 1+ 1:13 PM CHILDREN'S LITERATURE PROFESSOR Aerobic, Resp (A) Comment: This organism may [...] (Sputum) 05/23/2021 12:39 05/23/20 21 1:31 PM CHILDREN'S LITERATURE PROFESSOR PM CHILDREN'S LITERATURE PROFESSOR Comment: Specimen Source Site: Sputum Organism Antibiotic [...] marcescens Ceftriaxone SUSCEPTIBILITY, 32 mcg/mL: R esistant DAVID (MCG/ML) Serratia marcescens Ceftazidime SUSCEPTIBILITY, >16 mcg/mL: [...] - GENER AL ORDERABLES Performing Organization Address City/[facility]/ZIP Code Phon e Number [facility] - [address] Gram Stain (05/23/2021 12:39 PM CHILDREN'S LITERATURE PROFESSOR) athologist Signature Gram Stain Mixed efrem. 05/23/2021 DTL White blood cells,Many. 2:28 PM CHILDREN'S LITERATURE PROFESSOR Specimen Anatomical Collection Method Collection Time Receive d Time (Source) Location / / Volume Laterality Sputum (Sputum) 05/23/2021 12:39 05/23/20 21 1:31 PM CHILDREN'S LITERATURE PROFESSOR PM CHILDREN'S LITERATURE PROFESSOR Comment: Specimen Source Site: Sputum Sagar Fall M.D. LAB MICROBIOLOGY - GENER AL ORDERABLES Performing Organization Address [facility] Phon e Number [address] DX Chest AP or PA and Lateral 2 Views (05/23/2021 12:00 PM CHILDREN'S LITERATURE PROFESSOR) Anatomical Region Laterality Modality Chest, Thoracic RST LOS, Thoracic ARZ LOS, Thoracic N/A Digital Radiography FLA LOS Specimen (Source) Anatomical Collection Method Collection Time Re ceived Time Location / / Volume Laterality 05/23/2021 12:34 PM CHILDREN'S LITERATURE PROFESSOR Impressions 05/23/2021 12:44 PM CHILDREN'S LITERATURE PROFESSOR Nodular opacities in the left base may be due to aspiration or infection. Pleural thickening and/or sca rring. Degenerative changes of the spine. Narrative 05/23/2021 12:44 PM CHILDREN'S LITERATURE PROFESSOR EXAM: ??DX CHEST AP OR PA AND LATERAL 2 VIEWS Procedure Note Leonid Murphy M.D. - 05/23/2021For matting of this note might be different from the original. EXAM: DX CHEST AP OR PA AND LATERAL 2 EWS IMPRESSION: Nodular opacities in the left base may b e due to aspiration or infection. Pleural thickening and/or sca rring. Degenerative changes of the spine. Magda Redding M.D. IMAutumn DIAGNOSTIC IMAGING PROCE DURES (ABNORMAL) Venous Blood Gas and Electrolytes CG8+, POCT (05/23/2021 11:37 AM CHILDREN'S LITERATURE PROFESSOR) P athologist Signature Sample Site, Venick 05/23/2021 PCSM POCT 11:49 AM CHILDREN'S LITERATURE PROFESSOR Comment: ----ADDITIONAL INFORMATION---- Performed at the Point of Care pH, Venous, POCT, B 7.50 (H) 7.32 - 7.43 05/23/2021 11:49 A M CHILDREN'S LITERATURE PROFESSOR PCSM Comment: ----ADDITIONAL INFORMATION---- Performed at the Point of Care pCO2, Venous, POCT, B 30 (L) 41 - 51 mm Hg 05/23/2021 11: 49 AM CHILDREN'S LITERATURE PROFESSOR PCSM Comment: ----ADDITIONAL INFORMATION---- Performed at the Point of Care pO2, Venous, POCT, B <18 Not Applicable mm Hg 05/23/20 11:49 AM CHILDREN'S LITERATURE PROFESSOR PCSM Comment: ----ADDITIONAL INFORMATION---- Performed at the Point of Care Base Excess, Venous, POCT, B 0 Not Applicable mmol/L 05/23/2021 11:49 AM CHILDREN'S LITERATURE PROFESSOR PCSM Comment: ----ADDITIONAL INFORMATION---- Performed at the Point of Care HCO3, Venous, POCT, B 24 Not Applicable mmol/L 2020 11:49 AM CHILDREN'S LITERATURE PROFESSOR PCSM Comment: ----ADDITIONAL INFORMATION---- Performed at the Point of Care Sodium, POCT, B 129 (L) 135 - 145 mmol/L 05/23/2021 11:49 AM CHILDREN'S LITERATURE PROFESSOR PCSM Comment: ----ADDITIONAL INFORMATION---- Performed at the Point of Care Potassium, POCT, B 3.7 3.6 - 5.2 mmol/L 05/23/2021 11: 49 AM CHILDREN'S LITERATURE PROFESSOR PCSM Comment: ----ADDITIONAL INFORMATION---- Performed at the Point of Care Calcium, Ionized, POCT, B 4.50 (L) 4.65 - 5.30 mg/dL 06/2020 11:49 AM CHILDREN'S LITERATURE PROFESSOR PCSM Comment: ----ADDITIONAL INFORMATION---- Performed at the Point of Care Glucose, POCT, B 134 70 - 140 mg/dL 05/23/2021 11:49 A M CHILDREN'S LITERATURE PROFESSOR PCSM Comment: ----ADDITIONAL INFORMATION---- Performed at the Point of Care Hematocrit, POCT, B 22.0 (L) 38.3 - 48.6 % 05/23/2021 11:49 AM CHILDREN'S LITERATURE PROFESSOR PCSM Comment: ----ADDITIONAL INFORMATION---- Performed at the Point of Care Specimen Anatomical Collection Method Collection Time Receive d Time (Source) Location / / Volume Laterality Blood 05/23/2021 11:37 05/23/2021 AM CHILDREN'S LITERATURE PROFESSOR 11:49 AM CHILDREN'S LITERATURE PROFESSOR Unknown Provider LAB POCT ORDERABLES - DEVICE Performing Organization Address City/[facility]/ZIP [facility] [place] POC RST [facility] INPATIENT [address] [place], [place] [address] LABS PCSM [facility] [place] [address] [facility] [address] [place] [address] (ABNORMAL) Troponin T, Baseline, 5th gen (05/23/2021 11:37 AM CHILDREN'S LITERATURE PROFESSOR) P athologist Signature Troponin T, 48 (H) <=15 ng/L 05/23/2021 STMA Baseline, 5th 12:14 PM CHILDREN'S LITERATURE PROFESSOR gen Specimen Anatomical Collection Method Collection Time Receive d Time (Source) Location / / Volume Laterality Blood (Blood, 05/23/2021 11:37 05/23/2021 Venous) AM CHILDREN'S LITERATURE PROFESSOR 11:49 AM CHILDREN'S LITERATURE PROFESSOR Magda Redding M.D. LAB BLOOD TROPONIN Performing Organization Address City/[facility] Code Phon e Number [facility] - [address] [place], [place] [address] [place] [address] Laboratories-[facility] [address] Type and Screen (with reflex Antibody ID) (05/23/2021 11:37 AM CHILDREN'S LITERATURE PROFESSOR) Patholo gist Method Time Signature ABORh O Pos Not 05/23/2021 STRM applicable 12:26 PM CHILDREN'S LITERATURE PROFESSOR Antibody Negative Negative 05/23/2021 STRM Screen 12:40 PM CHILDREN'S LITERATURE PROFESSOR Type & Screen 05/26/2021 05/23/2021 STRM Expiration 23:59 12:26 PM CHILDREN'S LITERATURE PROFESSOR Testing Rosalio DEFAULT 05/23/2021 STRM Location 12:02 PM CHILDREN'S LITERATURE PROFESSOR Specimen Anatomical Collection Method Collection Time Receive d Time (Source) Location / / Volume Laterality Blood (Blood, 05/23/2021 11:37 05/23/2021 Venous) AM CHILDREN'S LITERATURE PROFESSOR 12:02 PM CHILDREN'S LITERATURE PROFESSOR Magda Redding M.D. LAB BLOOD BANK TEST ORDERABL ES Performing Organization Address City/[facility]/ZIP Code Phon e Number [facility] - [address] Prothrombin Time (PT) (05/23/2021 11:37 AM CHILDREN'S LITERATURE PROFESSOR) athologist Signature Prothrombin 11.7 9.4 - 12.5 05/23/2021 STMA Time, P sec 11:57 AM CHILDREN'S LITERATURE PROFESSOR INR 1.1 0.9 - 1.1 05/23/2021 STMA 11:57 AM CHILDREN'S LITERATURE PROFESSOR Comment: ----ADDITIONAL INFORMATION---- Standard intensity warfarin therapeutic range: 2.0 to 3.0 ?? High intensity warfarin therapeutic rang e: 2.5 to 3.5 Specimen Anatomical Collection Method Collection Time Receive d Time (Source) Location / / Volume Laterality Blood (Blood, 05/23/2021 11:37 05/23/2021 Venous) AM CHILDREN'S LITERATURE PROFESSOR 11:49 AM CHILDREN'S LITERATURE PROFESSOR Magda Redding M.D. LAB BLOOD ADD-ON Performing Organization Address City/State/ZIP Code Phon e Number [facility] - [address] Lactate, baseline (05/23/2021 11:37 AM CHILDREN'S LITERATURE PROFESSOR) athologist Signature Lactate, P 1.1 0.5 - 2.2 05/23/2021 STMA mmol/L 12:02 PM CHILDREN'S LITERATURE PROFESSOR Specimen Anatomical Collection Method Collection Time Receive d Time (Source) Location / / Volume Laterality Blood (Blood, 05/23/2021 11:37 05/23/2021 Venous) AM CHILDREN'S LITERATURE PROFESSOR 11:49 AM CHILDREN'S LITERATURE PROFESSOR Magda Redding M.D. LAB BLOOD NON ADD-ON Performing Organization Address City/State/ZIP Code Phon e Number [facility] - [address] [place], [place] [address] [place] [address] (ABNORMAL) Hepatic Function Panel (05/23/2021 11:37 AM CHILDREN'S LITERATURE PROFESSOR) [facility] Method Time Signature Bilirubin, Total, S 0.3 <=1.2 05/23/2021 DTL mg/dL 12:29 PM CHILDREN'S LITERATURE PROFESSOR Bilirubin, Direct, S <0.2 0.0 - 0.3 05/23/2021 DTL mg/dL 12:29 PM CHILDREN'S LITERATURE PROFESSOR Aspartate 24 8 - 48 05/23/2021 DTL Aminotransferase U/L 12:29 PM CHILDREN'S LITERATURE PROFESSOR (AST), S Alanine 20 7 - 55 05/23/2021 DTL Aminotransferase U/L 12:29 PM CHILDREN'S LITERATURE PROFESSOR (ALT), S Alkaline 107 40 - 129 05/23/2021 DTL Phosphatase, S U/L 12:29 PM CHILDREN'S LITERATURE PROFESSOR Albumin, S 3.6 3.5 - 5.0 05/23/2021 DTL g/dL 12:29 PM CHILDREN'S LITERATURE PROFESSOR Protein, Total, S 5.5 (L) 6.3 - 7.9 05/23/2021 DTL g/dL 12:29 PM CHILDREN'S LITERATURE PROFESSOR Specimen Anatomical Collection Method Collection Time Receive d Time (Source) Location / / Volume Laterality Blood (Blood, 05/23/2021 11:37 05/23/2021 Venous) AM CHILDREN'S LITERATURE PROFESSOR 12:10 PM CHILDREN'S LITERATURE PROFESSOR Magda Redding M.D. LAB BLOOD ADD-ON Performing Organization Address City/State/ZIP Code Phon e Number [facility] - [address] [place], [place] [address] [facility] [place] [address] Laboratories-[facility] [address] [facility] (ABNORMAL) CBC with Differential, Blood (05/23/2021 11:37 AM CHILDREN'S LITERATURE PROFESSOR) [facility] Method Time Signature Hemoglobin 7.4 (L) 13.2 - 05/23/2021 STMA 16.6 g/dL 11:52 AM CHILDREN'S LITERATURE PROFESSOR Hematocrit 22.4 (L) 38.3 - 05/23/2021 STMA 48.6 % 11:52 AM CHILDREN'S LITERATURE PROFESSOR Erythrocytes 2.36 (L) 4.35 - 05/23/2021 STMA 5.65 11:52 AM CHILDREN'S LITERATURE PROFESSOR x10(12)/L MCV 94.9 78.2 - 05/23/2021 STMA 97.9 fL 11:52 AM CHILDREN'S LITERATURE PROFESSOR RBC Distrib Width 13.7 11.8 - 05/23/2021 STMA 14.5 % 11:52 AM CHILDREN'S LITERATURE PROFESSOR Platelet Count 175 135 - 317 05/23/2021 STMA x10(9)/L 11:52 AM CHILDREN'S LITERATURE PROFESSOR Leukocytes 3.5 3.4 - 9.6 05/23/2021 STMA x10(9)/L 11:52 AM CHILDREN'S LITERATURE PROFESSOR Neutrophils 2.85 1.56 - 05/23/2021 STMA 6.45 11:52 AM CHILDREN'S LITERATURE PROFESSOR x10(9)/L Lymphocytes 0.24 (L) 0.95 - 05/23/2021 STMA 3.07 11:52 AM CHILDREN'S LITERATURE PROFESSOR x10(9)/L Monocytes 0.40 0.26 - 05/23/2021 STMA 0.81 11:52 AM CHILDREN'S LITERATURE PROFESSOR x10(9)/L Eosinophils 0.04 0.03 - 05/23/2021 STMA 0.48 11:52 AM CHILDREN'S LITERATURE PROFESSOR x10(9)/L Basophils <0.03 0.01 - 05/23/2021 STMA 0.08 11:52 AM CHILDREN'S LITERATURE PROFESSOR x10(9)/L Specimen Anatomical Collection Method Collection Time Receive d Time (Source) Location / / Volume Laterality Blood (Blood, 05/23/2021 11:37 05/23/2021 Venous) AM CHILDREN'S LITERATURE PROFESSOR 11:49 AM CHILDREN'S LITERATURE PROFESSOR Magda Redding M.D. LAB BLOOD ADD-ON Performing Organization Address City/State/ZIP Code Phon e Number [facility] - [address] [place], [place] [address] [facility] [place] [address] Laboratories-[facility] [address] [facility] (ABNORMAL) Basic Metabolic Panel (05/23/2021 11:37 AM CHILDREN'S LITERATURE PROFESSOR) Analysis Performed At Patho logist Time Signature Potassium, P 3.9 3.6 - 5.2 05/23/2021 STMA mmol/L 12:07 PM CHILDREN'S LITERATURE PROFESSOR Sodium, P 125 (L) 135 - 145 05/23/2021 STMA mmol/L 12:07 PM CHILDREN'S LITERATURE PROFESSOR Chloride, P 91 (L) 98 - 107 05/23/2021 STMA mmol/L 12:07 PM CHILDREN'S LITERATURE PROFESSOR Bicarbonate, P 21 (L) 22 - 29 05/23/2021 STMA mmol/L 12:07 PM CHILDREN'S LITERATURE PROFESSOR Anion Gap, P 13 7 - 15 05/23/2021 STMA 12:07 PM CHILDREN'S LITERATURE PROFESSOR BUN (Blood Urea 59 (H) 8 - 24 05/23/2021 STMA Nitrogen), P mg/dL 12:07 PM CHILDREN'S LITERATURE PROFESSOR Creatinine 4.31 (H) 0.74 - 05/23/2021 STMA 1.35 mg/dL 12:07 PM CHILDREN'S LITERATURE PROFESSOR eGFR-Black/Afri 15 (L) >=60 05/23/2021 STMA can Eritrean mL/min/BSA 12:07 PM CHILDREN'S LITERATURE PROFESSOR Comment: ----ADDITIONAL INFORMATION---- Estimated GFR calculated using the 2009 CKD_EPI creatinine equation. eGFR Non-Black/ <15 (L) >=60 mL/min/BSA 05/23/2021 12:07 PM STMA Eritrean CHILDREN'S LITERATURE PROFESSOR Comment: ----ADDITIONAL INFORMATION---- Estimated GFR calculated using the 2009 CKD_EPI creatinine equation. Calcium, Total, P 8.4 (L) 8.8 - 10.2 mg/dL 05/23/2021 12:0 7 PM CHILDREN'S LITERATURE PROFESSOR STMA Glucose, P 139 70 - 140 mg/dL 05/23/2021 12:07 PM CHILDREN'S LITERATURE PROFESSOR STMA Specimen Anatomical Collection Method Collection Time Receive d Time (Source) Location / / Volume Laterality Blood (Blood, 05/23/2021 11:37 05/23/2021 Venous) AM CHILDREN'S LITERATURE PROFESSOR 11:49 AM CHILDREN'S LITERATURE PROFESSOR Magda Redding M.D. LAB BLOOD ADD-ON Performing Organization Address City/State/[facility] Phon e Number [facility] - [address] STMA [place] [address] Ammonia (05/23/2021 11:37 AM CHILDREN'S LITERATURE PROFESSOR) P athologist Signature Ammonia, P <10 <=30 mcmol/L 05/23/2021 DTL 12:30 PM CHILDREN'S LITERATURE PROFESSOR Specimen Anatomical Collection Method Collection Time Receive d Time (Source) Location / / Volume Laterality Blood (Blood, 05/23/2021 11:37 05/23/2021 Venous) AM CHILDREN'S LITERATURE PROFESSOR 11:52 AM CHILDREN'S LITERATURE PROFESSOR Magda Redding M.D. LAB BLOOD NON ADD-ON Performing Organization Address City/State/[facility] Phon e Number [facility] - [address] DTL [place] [address] Venous Blood Gas and Electrolytes, POCT (05/23/2021 11:37 AM CHILDREN'S LITERATURE PROFESSOR) Analysis Performed At Patho logist Time Signature ABG and Lytes, Collected DEFAULT 05/23/2021 SMLX POCT, B 11:37 AM CHILDREN'S LITERATURE PROFESSOR Specimen Anatomical Collection Method Collection Time Receive d Time (Source) Location / / Volume Laterality Blood (Other, 05/23/2021 11:37 05/23/2021 Specify in AM CHILDREN'S LITERATURE PROFESSOR 11:37 AM CHILDREN'S LITERATURE PROFESSOR Comments) Magda Redding M.D. LAB POCT ORDERABLES - DEVICE Performing Organization Address [facility] Phon e Number [facility] - [address] [place] [address] [facility] [place] [address] [facility]-[address] SARS Coronavirus 2, PCR Rapid, V Symptomatic (05/23/2021 11:22 AM CHILDREN'S LITERATURE PROFESSOR) Patholo gist Method Time Signature SARS CoV-2, Undetected Undetected 05/23/2021 STMA PCR, Rapid, V 11:53 AM CHILDREN'S LITERATURE PROFESSOR Comment: ----ADDITIONAL INFORMATION---- This RT-PCR test was performed using the Yadiel SARS-CoV-2 and Influenza A/B Reagent assay from [employer], which has received Emergency Use Authori zation(EUA) by the U.S. Food and Drug Administration . Fact sheets for this Emergency Use Autho rization (EUA) assay can be found at the following link s: For Healthcare Providers: https://www.fda.gov/media/381008/downloa d For Patients: https://www.fda.gov/media/997022/downloa d SARS Coronavirus 2, Source, Swab, Nasopharynx 06/2020 11:25 AM CHILDREN'S LITERATURE PROFESSOR STMA Rapid Specimen Anatomical Collection Method Collection Time Receive d Time (Source) Location / / Volume Laterality Varies 05/23/2021 11:22 05/23/2021 (Nasopharynx) AM CHILDREN'S LITERATURE PROFESSOR 11:25 AM CHILDREN'S LITERATURE PROFESSOR Mario Alberto Shaw M.D. LAB MICROBIOLOGY - GENERAL O RDERABLES Performing Organization Address City/[facility]/[place]IP [facility] [place] Number [facility] - [address] [place] [address] [facility] [place] [address] Laboratories-[facility] [address] ECG 12 Lead (05/23/2021 11:17 AM CHILDREN'S LITERATURE PROFESSOR) P athologist Signature Ventricular Rate 83 BPM MUSE ECG/Min AL Interval 176 ms MUSE QRSD Interval 88 ms MUSE QT Interval 374 ms MUSE QTC Interval 439 ms MUSE P Mays 80 degrees MUSE R [place]ays 23 degrees MUSE T Wave [place] 59 degrees MUSE Specimen Anatomical Collection Method Collection Time Receive d Time (Source) Location / / Volume Laterality 05/23/2021 11:17 05/23/2021 AM CHILDREN'S LITERATURE PROFESSOR 11:22 AM CHILDREN'S LITERATURE PROFESSOR Impressions MUSE - 05/23/2021 11:22 AM CHILDREN'S LITERATURE PROFESSOR Normal sinus rhythm with sinus arrhythmia Normal [...] Redding M.D. ECG ORDERABLES Performing Organization Address City/State/ZIP Code Phon e Number MUSE MUSE NA documented in this encounter Visit Diagnoses Diagnosis Dyspnea - Primary Anemia documented in this encounter Administered Medications Inactive Administered Medications - up to 3 most recent administrations Medication Order MAR Action Action Date Dose Rate Site ipratropium-albuteroL 0.5-2.5 mg/3 Given 05/23/2021 12:32 PM CHILDREN'S LITERATURE PROFESSOR 3 mL mL nebulizer solution 3 mL (DUONEB) 3 mL, nebulization, Once, On Fri05/23/21 at 1229, For 1 dose documented in this encounter Active and Recently Administered Medications Times are shown in CHILDREN'S LITERATURE PROFESSOR. Scheduled Medication Order 05/21/2021 05/22/2021 05/23/2021 ipratropium-albuteroL 0.5-2.5 mg/3 mL ne bulizer solution 3 mL (DUONEB) (COMPLETED) 1232 (Given - Provid er: Mary Puentes R.R.T., L.R.T.) 3 mL, nebulization, Once, On Fri05/23/21 at 1229, For 1 dose documented in this encounter Additional Health Concerns Infection Onset Date Last Indicated Resolved Time COVID19 Pending 05/23/2021 05/23/2021 05/23/2021 11:53 AM CHILDREN'S LITERATURE PROFESSOR Assessment Noted Time PHQ-9 Depression Total Score: 4 11/28/2020 10:17 AM CD T documented as of this encounter Care Teams Molasses Coloring Operator Relationship Specialty Start Date End Date Elsewhere, Pcp PCP - General Family Medicine 07/29/17 [facility] - Laboratory Medicine 04/12/20 [place] [address] documented as of this encounter
--- OUTSIDE RECORDS SUMMARY | 2022-05-17 18:40 | XMS_ITS | Encounter Summary ---
:1955 Author Organization [facility] Address [address] [place] [address] Care Team Providers Name Role Phone Elsewhere, Pcp Primary Care Provider Unavailable Encounter Details Date Type Department Care Team Description 04/30/2021 Orders Only Division of Nephrology Eve Garcia Anemia Of Chronic Renal Disease (Primary Dx); and Hypertension in RAMONA, C.N.P., Group Home Manager surinder Kidney Disease Stage 4 Glomerular Filtration Rate 15-29 (HCC); [place], [place] D.N.P. Chronic Kidney Disease Stage 5 Glomerula r Filtration Rate Less Than 15 (HCC) [address] [facility] [address] [place] [phone] Social History Tobacco Use Types Packs/Day Years [...] Date Recorded Male 05/16/2020 4:27 PM REGIONAL EXTENSION SERVICE SPECIALIST documented as of this encounter Plan of Treatment Upcoming Encounters Date Type Specialty Care Team Description 05/22/2022 Appointment Laboratory Medicine Angélica Granger, P.A.-C. [address] [place] [phone] 05/23/2022 Clinical Admitting/Central Communication Scheduling 05/27/2022 Comprehensive Visit Orthopedic Surgery Markus Sams M.D., Ph.D. [address] [place] [phone] 05/29/2022 Office Visit Otorhinolaryngology Dex Matta APRN, C.N.P., M.S.N. [address] [place] [phone] 05/29/2022 Office Visit Otorhinolaryngology Nadeem Maradiaga, P.A.-C., M.S. [address] [place] [phone] 05/31/2022 Appointment Radiology Guilherme Matt MPAS, Edmundo, M.S. [address] [place] [phone] 06/05/2022 Appointment Laboratory Medicine Angélica Granger P.A.-C. [address] [place] [phone] 06/19/2022 Appointment Laboratory Medicine Angélica Granger P.A.-C. [address] [place] [phone] 07/03/2022 Appointment Laboratory Medicine Angélica Granger P.A.-C. [address] [place] [phone] 07/17/2022 Appointment Laboratory Medicine Angélica Granger P.A.-C. [address] [place] [phone] 07/31/2022 Appointment Laboratory Medicine Angélica Granger P.A.-C. [address] [place] [phone] 08/14/2022 Appointment Laboratory Medicine Angélica Granger P.A.-C. [address] [place] [phone] 08/28/2022 Appointment Laboratory Medicine Angélica Granger P.A.-C. [address] [place] [phone] documented as of this encounter Results HemoQuant, Feces (05/01/2021 12:00 PM REGIONAL EXTENSION SERVICE SPECIALIST) P athologist Signature Hemoglobin, 1.5 <=2 mg Hb/g 05/02/2021 DTL Fecal 3:10 PM REGIONAL EXTENSION SERVICE SPECIALIST Comment: ----ADDITIONAL INFORMATION---- This test was developed and its performa nce characteristics determined by [facility] in a manner consistent with CLIA requirements. This test has not been cleared or approved by the U.S. Mer d and Drug Administration. Specimen Anatomical Collection Method Collection Time Receive d Time (Source) Location / / Volume Laterality Stool (Stool) 05/01/2021 12:00 05/02/2021 7:58 PM REGIONAL EXTENSION SERVICE SPECIALIST AM REGIONAL EXTENSION SERVICE SPECIALIST Eve Garica APRN, C.N.P., D.N.P. LAB BODY FLUID S AND STOOLS ORDERABLES Performing Organization Address City/[facility] Code Phon e Number [facility] - 200 [place], [place] [address] [facility] [place] [address] Laboratories-[facility] 200 [facility] Folate (05/01/2021 10:24 AM REGIONAL EXTENSION SERVICE SPECIALIST) P athologist Signature Folate, S 11.0 >=4.0 mcg/L 05/01/2021 3:41 ECLR PM REGIONAL EXTENSION SERVICE SPECIALIST Comment: Biotin has been identified by [...] (Blood, 05/01/2021 10:24 05/01/2021 2:57 Venous) AM REGIONAL EXTENSION SERVICE SPECIALIST PM REGIONAL EXTENSION SERVICE SPECIALIST Eve Garcia APRN, C.N.P., D.N.P. LAB BLOOD ADD- ON Performing Organization Address City/[facility]/ZIP Code Phon e Number [facility]- [address] [place] [address] [phone] [facility] [place] [address] System [address] (ABNORMAL) Basic Metabolic Panel (05/01/2021 10:24 AM REGIONAL EXTENSION SERVICE SPECIALIST) Analysis Performed At Patho logist Time Signature Potassium, P 3.9 3.6 - 5.2 05/01/2021 CNFL mmol/L 10:45 AM REGIONAL EXTENSION SERVICE SPECIALIST Sodium, P 133 (L) 135 - 145 05/01/2021 CNFL mmol/L 10:45 AM REGIONAL EXTENSION SERVICE SPECIALIST Chloride, P 95 (L) 98 - 107 05/01/2021 CNFL mmol/L 10:45 AM REGIONAL EXTENSION SERVICE SPECIALIST Bicarbonate, P 22 22 - 29 05/01/2021 CNFL mmol/L 10:45 AM REGIONAL EXTENSION SERVICE SPECIALIST Anion Gap, P 16 (H) 7 - 15 05/01/2021 CNFL 10:45 AM REGIONAL EXTENSION SERVICE SPECIALIST BUN (Blood Urea 66 (H) 8 - 24 05/01/2021 CNFL Nitrogen), P mg/dL 10:45 AM REGIONAL EXTENSION SERVICE SPECIALIST Creatinine 3.93 (H) 0.74 - 05/01/2021 CNFL 1.35 mg/dL 10:45 AM REGIONAL EXTENSION SERVICE SPECIALIST eGFR-Black/Afri 17 (L) >=60 05/01/2021 CNFL can Guinean mL/min/BSA 10:45 AM REGIONAL EXTENSION SERVICE SPECIALIST Comment: ----ADDITIONAL INFORMATION---- Estimated GFR calculated using the 2009 CKD_EPI creatinine equation. eGFR Non-Black/ <15 (L) >=60 mL/min/BSA 05/01/2021 10:45 AM CNFL Guinean REGIONAL EXTENSION SERVICE SPECIALIST Comment: ----ADDITIONAL INFORMATION---- Estimated GFR calculated using the 2009 CKD_EPI creatinine equation. Calcium, Total, P 8.7 (L) 8.8 - 10.2 mg/dL 05/01/2021 10:4 5 AM REGIONAL EXTENSION SERVICE SPECIALIST CNFL Glucose, P 144 (H) 70 - 140 mg/dL 05/01/2021 10:45 AM REGIONAL EXTENSION SERVICE SPECIALIST CNFL Specimen Anatomical Collection Method Collection Time Receive d Time (Source) Location / / Volume Laterality Blood (Blood, 05/01/2021 10:24 05/01/2021 Venous) AM REGIONAL EXTENSION SERVICE SPECIALIST 10:27 AM REGIONAL EXTENSION SERVICE SPECIALIST Eve Garcia APRN, C.N.P., D.N.P. LAB BLOOD ADD- ON Performing Organization Address City/State/ZIP Code Phon e Number [facility]- [address] [place] [address] [place] [address] [place] [address] System in [place] [address] [address] (ABNORMAL) Cystatin C with Estimated GFR, S (05/01/2021 10:24 AM REGIONAL EXTENSION SERVICE SPECIALIST) athologist [facility] eGFR by 7 (L) >60 05/02/2021 DTL Cystatin C mL/min/BSA 7:38 AM REGIONAL EXTENSION SERVICE SPECIALIST Comment: Estimated GFR calculated using the [...] 0.67 - 1.21 mg/L 05/02/2021 7:38 AM REGIONAL EXTENSION SERVICE SPECIALIST DTL Specimen Anatomical Collection Method Collection Time Receive d Time (Source) Location / / Volume Laterality Blood (Blood, 05/01/2021 10:24 05/02/2021 7:20 Venous) AM REGIONAL EXTENSION SERVICE SPECIALIST AM REGIONAL EXTENSION SERVICE SPECIALIST Eve Garcia APRN, C.N.P., D.N.P. LAB BLOOD ADD- ON Performing Organization Address City/State/ZIP Code Phon e Number [facility] - [address] [place], [place] [address] [facility] [place] [address] Laboratories-[facility] [address] Ferritin (05/01/2021 10:24 AM REGIONAL EXTENSION SERVICE SPECIALIST) athologist Signature Ferritin, S 345 31 - 409 05/01/2021 [facility] mcg/L 1:35 PM REGIONAL EXTENSION SERVICE SPECIALIST Comment: Biotin has been identified by [...] Blood (Blood, 05/01/2021 10:24 05/01/2021 Venous) AM REGIONAL EXTENSION SERVICE SPECIALIST 12:49 PM REGIONAL EXTENSION SERVICE SPECIALIST Arley Velasquez APRN.N.P., D.N.P. LAB BLOOD ADD- ON Performing Organization Address City/State/ZIP Code Phon e Number [facility]- [address] [place], [place] [address] [place] [address] System in [place] [address] [address] (ABNORMAL) Iron and Total Iron-Binding Capacity (05/01/2021 10:24 AM REGIONAL EXTENSION SERVICE SPECIALIST) P athologist Signature Iron 48 (L) 50 - 150 05/01/2021 [facility] mcg/dL 1:26 PM REGIONAL EXTENSION SERVICE SPECIALIST Total Iron 215 (L) 250 - 400 05/01/2021 [facility] Binding mcg/dL 1:26 PM REGIONAL EXTENSION SERVICE SPECIALIST Capacity Percent 22 14 - 50 % 05/01/2021 [facility] Saturation 1:26 PM REGIONAL EXTENSION SERVICE SPECIALIST Specimen Anatomical Collection Method Collection Time Receive d Time (Source) Location / / Volume Laterality Blood (Blood, 05/01/2021 10:24 05/01/2021 Venous) AM REGIONAL EXTENSION SERVICE SPECIALIST 12:49 PM REGIONAL EXTENSION SERVICE SPECIALIST Arley Velasquez APRN.N.P., D.N.P. LAB BLOOD ADD- ON Performing Organization Address City/State/ZIP Code Phon e Number [facility]- [address] [place], [place] [address] [place] [address] System in [place] [address] [address] (ABNORMAL) Reticulocytes (05/01/2021 10:24 AM REGIONAL EXTENSION SERVICE SPECIALIST) Patholo gist Method Time Signature Reticulocytes, B 3.41 (H) 0.60 - 05/01/2021 RDWG 2.71 % 1:15 PM REGIONAL EXTENSION SERVICE SPECIALIST Absolute 91.0 30.4 - 05/01/2021 R[facility] Reticulocyte 110.9 1:15 PM REGIONAL EXTENSION SERVICE SPECIALIST x10(9)/L Specimen Anatomical Collection Method Collection Time Receive d Time (Source) Location / / Volume Laterality Blood (Blood, 05/01/2021 10:24 05/01/2021 Venous) AM REGIONAL EXTENSION SERVICE SPECIALIST 12:49 PM REGIONAL EXTENSION SERVICE SPECIALIST Arley Velasquez APRN.N.P., D.N.P. LAB BLOOD ADD- ON Performing Organization Address City/State/ZIP Code Phon e Number [facility]- [address] [place], [place] [address] [place] [address] System in [place] [address] documented in this encounter Visit Diagnoses Diagnosis [...] documented as of this encounter Care Teams Hard Tile Setter Apprentice Relationship Specialty Start Date End Date Elsewhere, Pcp PCP - General Family Medicine 07/29/17 [facility] - Laboratory Medicine 04/12/20 [place] [phone] documented as of this encounter
--- OUTSIDE RECORDS SUMMARY | 2022-05-17 18:40 | XMS_ITS | Encounter Summary ---
:1955 Author Organization [facility] Address [address] [place] [address] Care Team Providers Name Role Phone Elsewhere, Pcp Primary Care Provider Unavailable Encounter Details Date Type Department Care Team Description 03/15/2021 Hospital Encounter Department of Willis Herrera Chro nic Kidney Disease; Laboratory Medicine M.DDemetrius Pretransplant Recipient Evaluation Exam and Pathology, [address] [place] [address] in [facility] [phone] [place] [phone] [place] [address] (Work) [place], [place] [phone] (Fax) [phone] Social History Tobacco Use Types Packs/Day Years [...] at Date Recorded Male 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 Medication Therapy Usp Not Anticoagulant sodium chloride USE 4 ML VIA 0 08/30/2020 021 (NEBUSAL) 3 % nebulizer NEBULIZER TWICE solution DAILY Spiriva Respimat 2.5 INHALE 2 PUFFS BY 4 g 0 01/09/20 21 07/26/2021 mcg/actuation inhaler MOUTH DAILY tacrolimus (PROGRAF) Take 2 capsules (1 360 capsule 3 202007/16/2021 0.5 mg mg total) by mouth 2 capsuleIndications: (two) times a day. Transplant Liver (HCC), Medication Therapy Usp Not Anticoagulant torsemide (DEMADEX) 10 Take 3 [...] Laboratory Medicine Angélica Granger P.A.-C. [address] [place] [phone] 05/23/2022 Clinical Admitting/Central Communication Scheduling 05/27/2022 Comprehensive Visit Orthopedic Surgery Markus Sams M.D., Ph.D. [address] [place] [phone] 05/29/2022 Office Visit Otorhinolaryngology Dex Matta APRN CDemetriusNDemetriusP., M.S.N. [address] [place] [phone] 05/29/2022 Office Visit Otorhinolaryngology Nadeem Maradiaga, Jennifer., M.S. [address] [place] [phone] 05/31/2022 Appointment Radiology Guilherme Matt MPAS, Edmundo, M.S. [address] [place] [phone] 06/05/2022 Appointment Laboratory Medicine Angélica Granger P.A.-C. [address] [place] [phone] 06/19/2022 Appointment Laboratory Medicine Angélica Granger P.A.-C. [address] [place] [phone] 07/03/2022 Appointment Laboratory Medicine Angélica Granger P.A.-C. [address] [place] [phone] 07/17/2022 Appointment Laboratory Medicine Angélica Granger P.A.-C. [address] [place] [phone] 07/31/2022 Appointment Laboratory Medicine Angélica Granger P.A.-C. [address] [place] [address] [place] [phone] 08/14/2022 Appointment Laboratory Medicine Angélica Granger P.A.-C. [address] [place] [phone] 08/28/2022 Appointment Laboratory Medicine Angélica Granger P.A.-C. [address] [place] [phone] documented as of this encounter Procedures Procedure [...] SAB Antibody Screen (03/22/2021 2:05 PM CDT) [facility] Method Time Signature Class II SAB Negative Not Applicable 03/27/2021 D[facility] Overall 10:02 AM CDT Result Class II SAB 0 03/27/2021 [facility] cPRA 10:02 AM CDT Comment: ----ADDITIONAL INFORMATION---- This PRA is a [facility] ue Typing Laboratory calculated PRA. PRA is based on the antigen frequency of the Tissue Typing patient a nd donor population. ??PRA reflects all antibodie s with a normalized value (MFI) above 300. SAB DRB1 Specificity NONE 03/27/2021 10:02 AM CDT DBB8 SAB [id number] Specificity NONE 03/27/2021 10:02 AM CDT DBB8 SAB DQB1 Specificity NONE 03/27/2021 10:02 AM CDT D[facility] SAB DPB1 Specificity NONE 03/27/2021 10:02 AM CDT DBB8 Comment: ----ADDITIONAL INFORMATION---- Method: Luminex Flow Cytometry CLIA: [id number] ??CLIA Hotel Front Desk Agent: KRISTAL MIMS MD,PhD Specimen Anatomical Collection Method Collection Time Receive d Time (Source) Location / / Volume Laterality Blood (Blood, 03/22/2021 2:05 PM 03/25/20 21 2:10 Venous) CDT PM CDT Resulting Agency Comment Mailed In Specimen Willis Herrera M.D. LAB HLA ORDERABLES Performing Organization Address City/[facility] Phon e Number [facility] - [address] [place], [place] [address] [facility] [place] [place] [address] [facility] 200 [facility] HLA Class I SAB Antibody Screen (03/22/2021 2:05 PM CDT) [facility] Method Time Signature Class I SAB Negative Not Applicable 03/27/2021 [facility] Overall 7:56 AM CDT Result Class I SAB 0 03/27/2021 [facility] cPRA 7:56 AM CDT Comment: ----ADDITIONAL INFORMATION---- This PRA is a [facility] ue Typing Laboratory calculated PRA. PRA is [...] ----ADDITIONAL INFORMATION---- Method: Luminex Flow Cytometry CLIA: [id number] ??CLIA Hotel Front Desk Agent: KRISTAL MIMS MD,PhD Specimen Anatomical Collection Method Collection Time Receive d Time (Source) Location / / Volume Laterality Blood (Blood, 03/22/2021 2:05 PM 03/25/20 21 2:10 Venous) CDT PM CDT Resulting Agency Comment Mailed In Specimen Willis Herrera M.D. LAB HLA ORDERABLES Performing Organization Address City/[facility] Code Phon e Number [facility] - [address] [place], [place] [address] [facility] [place] [address] [facility] [address] documented in this encounter Visit Diagnoses Diagnosis Chronic Kidney Disease Pretransplant Recipient Evaluation Exam documented in this encounter Additional Health Concerns Assessment Noted Time PHQ-9 Depression Total Score: 4 11/28/2020 10:17 AM CD T documented as of this encounter Care Teams Drilling Rig Operator Relationship Specialty Start Date End Date Elsewhere, Pcp PCP - General Family Medicine 07/29/17 [facility] - Laboratory Medicine 04/12/20 [place] [phone] documented as of this encounter
--- OUTSIDE RECORDS SUMMARY | 2022-05-17 18:40 | XMS_ITS | Encounter Summary ---
:1955 Author Organization [facility] Address [address] [place] [address] Care Team Providers Name Role Phone Elsewhere, Pcp Primary Care Provider Unavailable Encounter Details Date Type Department Care Team Description 05/01/2021 Hospital Encounter Department of Eve Garcia Of Chronic Renal Disease; Laboratory Medicine M, TOLL RELIEF OPERATOR, C.N.P., Mara surinder Kidney Disease Stage 5 Glomerular Filtration Rate Less Than 15 (HCC) in [facility] D.N.P. 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 Medication Therapy Senior Care Not Anticoagulant sodium chloride USE 4 ML VIA 0 08/30/2020 021 (NEBUSAL) 3 % nebulizer NEBULIZER TWICE solution DAILY Spiriva Respimat 2.5 INHALE 2 PUFFS BY 4 g 0 01/09/20 21 07/26/2021 mcg/actuation inhaler MOUTH DAILY tacrolimus (PROGRAF) Take 2 capsules (1 360 capsule 3 202007/16/2021 0.5 mg mg total) by mouth 2 capsuleIndications: (two) times a day. Transplant Liver (HCC), Medication Therapy Corrosion Technician Not Anticoagulant torsemide (DEMADEX) 10 Take [...] Laboratory Medicine Angélica Granger P.A.-C. [address] [place] [address] 05/23/2022 Clinical Admitting/Central Communication Scheduling 05/27/2022 Comprehensive Visit Orthopedic Surgery Markus Sams M.D., Ph.D. [address] [place] [phone] 05/29/2022 Office Visit Otorhinolaryngology Dex Matta APRN, C.N.P., M.S.N. [address] [place] [phone] 05/29/2022 Office Visit Otorhinolaryngology Nadeem Maradiaga, Evan.Tom., M.S. [address] [place] [phone] 05/31/2022 Appointment Radiology Guilherme Matt MPAS, PMaryanne., M.S. [address] [place] [phone] 06/05/2022 Appointment Laboratory Medicine Angélica Granger P.A.-C. [address] [place] [phone] 06/19/2022 Appointment Laboratory Medicine Angélica Granger P.A.-C. [address] [place] [phone] 07/03/2022 Appointment Laboratory Medicine Angélica Granger P.A.-C. [address] [place] [address] [phone] 07/17/2022 Appointment Laboratory Medicine Angélica Granger P.A.-C. [address] [place] [address] [phone] 07/31/2022 Appointment Laboratory Medicine Angélica Granger P.A.-C. [address] [place] [phone] 08/14/2022 Appointment Laboratory Medicine Angélica Granger P.A.-C. [address] [place] [phone] 08/28/2022 Appointment Laboratory Medicine Angélica Granger P.A.-C. [address] [place] [phone] documented as of this encounter Procedures Procedure Name Priority Date/Time Associated Diagnosis Comme nts HEMOQUANT, F Routine 05/01/2021 12:00 PM Anemia Of Chronic Res ults for this NEUROLOGY PHYSICIAN Renal Disease procedure are in the Chronic Kidney results secti on. Disease Stage 5 Glomerular Filtration Rate Less Than 15 (HCC) documented in this encounter Results HemoQuant, Feces (05/01/2021 12:00 PM NEUROLOGY PHYSICIAN) P athologist Signature Hemoglobin, 1.5 <=2 mg Hb/g 05/02/2021 DTL Fecal 3:10 PM NEUROLOGY PHYSICIAN Comment: ----ADDITIONAL INFORMATION---- This test was developed and its performa nce characteristics determined by [facility] in a manner consistent with CLIA requirements. This test has not been cleared or approved by the U.S. Mer d and Drug Administration. Specimen Anatomical Collection Method Collection Time Receive d Time (Source) Location / / Volume Laterality Stool (Stool) 05/01/2021 12:00 05/02/2021 7:58 PM NEUROLOGY PHYSICIAN AM NEUROLOGY PHYSICIAN Eve Garcia APRN, C.N.P., D.N.P. LAB BODY FLUID S AND STOOLS ORDERABLES Performing Organization Address City/State/ZIP Code Phon e Number [facility] - [address] [place] [address] [facility] [place] [address] [facility] 200 [facility] documented in this encounter Visit Diagnoses Diagnosis Anemia Of Chronic Renal Disease Chronic Kidney Disease Stage 5 Glomerula r Filtration Rate Less Than 15 (HCC) documented in this encounter Additional Health Concerns Assessment Noted Time PHQ-9 Depression Total Score: 4 11/28/2020 10:17 AM CD T documented as of this encounter Care Teams Senior Ios Developer Relationship Specialty Start Date End Date Elsewhere, Pcp PCP - General Family Medicine 07/29/17 [facility] - Laboratory Medicine 04/12/20 [place] [phone] documented as of this encounter
--- OUTSIDE RECORDS SUMMARY | 2022-05-17 18:40 | XMS_ITS | Encounter Summary ---
:1955 Author Organization [facility] Address [address] [place] [address] Care Team Providers Name Role Phone Elsewhere, Pcp Primary Care Provider Unavailable Reason for Referral Outpatient (Routine) - Closed Specialty Diagnoses / Procedures Referred By Contact Refer red To Contact Diagnoses An[facility] Procedures Colonoscopy C.N.PDemetrius, D.N.P. 200 [place] [address] Referral ID Status Reason Start Date Expiration Date Visits Requ ested Visits Authorized [id number] Closed 05/22/2021 05/22/2022 1 1 DATION DIGGER Encounter Details Date Type Department Care Team Description 05/22/2021 Orders Only Division of Nephrology Antwan Barry (Primary Dx) and Hypertension in Padmini Hernandez APR[place], [place] C.N.PDemetrius, D.N.P. 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 [address] [place] [phone] 05/23/2022 Clinical Admitting/Central Communication Scheduling 05/27/2022 Comprehensive Visit Orthopedic Surgery Markus Sams M.D., Ph.D. [address] [place] [phone] 05/29/2022 Office Visit Otorhinolaryngology Dex Matta APRN, C.N.P., M.S.N. [address] [place] [phone] 05/29/2022 Office Visit Otorhinolaryngology Nadeem Maradiaga P.A.-C., M.S. [address] [place] [phone] 05/31/2022 Appointment Radiology Guilherme Matt MPAS, P.A.-C., M.S. [address] [place] [phone] 06/05/2022 Appointment Laboratory Medicine Angélica Granger P.A.-C. [address] [place] [phone] 06/19/2022 Appointment Laboratory Medicine Angélica Granger P.A.-C. [address] [place] [phone] 07/03/2022 Appointment Laboratory Medicine Angélica Granger P.A.-C. [address] [place] [phone] 07/17/2022 Appointment Laboratory Medicine Angélica Granger P.A.-C. [address] [place] [phone] 07/31/2022 Appointment Laboratory Medicine Angélica Granger P.A.-C. [address] [place] [phone] 08/14/2022 Appointment Laboratory Medicine Angélica Granger P.A.-C. [address] [place] [phone] 08/28/2022 Appointment Laboratory Medicine Angélica Granger P.A.-C. [address] [place] [phone] documented as of this encounter Visit Diagnoses Diagnosis Anemia - Primary documented in this encounter Additional Health Concerns Assessment Noted Time PHQ-9 Depression Total Score: 4 11/28/2020 10:17 AM CD T documented as of this encounter Care Teams Blender Machine Operator Relationship Specialty Start Date End Date Elsewhere, Pcp PCP - General Family Medicine 07/29/17 [facility] - Laboratory Medicine 04/12/20 [place] [address] documented as of this encounter
--- OUTSIDE RECORDS SUMMARY | 2022-05-17 18:40 | XMS_ITS | Encounter Summary ---
:[address] [facility] Address [address] [place] [address] Care Team Providers Name Role Phone Elsewhere, Pcp Primary Care Provider Unavailable Encounter Details Date Type Department Care Team Description 05/21/2021 Orders Only Division of Nephrology Antwan Barry (Primary Dx) and Hypertension in Padmini Hernandez APRN[place], [place] C.N.P., D.N.P. 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 [address] [place] [phone] 05/23/2022 Clinical Admitting/Central Communication Scheduling 05/27/2022 Comprehensive Visit Orthopedic Surgery Markus Sams M.D., Ph.D. [address] [place] [phone] 05/29/2022 Office Visit Otorhinolaryngology Dex Matta APRN, C.N.P., M.S.N. [address] [place] [phone] 05/29/2022 Office Visit Otorhinolaryngology Nadeem Maradiaga, P.A.-C., M.S. [address] [place] [phone] 05/31/2022 Appointment Radiology Guilherme Matt MPAS, P.Murtaza.Marie., M.S. [address] [place] [phone] 06/05/2022 Appointment Laboratory Medicine Angélica Granger P.A.-C. [address] [place] [phone] 06/19/2022 Appointment Laboratory Medicine Angélica Granger P.A.-C. [address] [place] [phone] 07/03/2022 Appointment Laboratory Medicine Angélica Granger P.A.-C. [address] [place] [phone] 07/17/2022 Appointment Laboratory Medicine Angélica Granger P.A.-C. [address] [place] [phone] 07/31/2022 Appointment Laboratory Medicine Angélica Granger P.A.-C. [address] [place] [phone] 08/14/2022 Appointment Laboratory Medicine Angélica Granger P.A.-C. [address] [place] [phone] 08/28/2022 Appointment Laboratory Medicine Angélica Granger P.A.-C. [address] [place] [address] [phone] documented as of this encounter Visit Diagnoses Diagnosis Anemia - Primary documented in this encounter Additional Health Concerns Assessment Noted Time PHQ-9 Depression Total Score: 4 11/28/2020 10:17 AM CD T documented as of this encounter Care Teams Braille Transcriber Relationship Specialty Start Date End Date Elsewhere, Pcp PCP - General Family Medicine 07/29/17 [facility] - Laboratory Medicine 04/12/[address] [address] documented as of this encounter
--- OUTSIDE RECORDS SUMMARY | 2022-05-17 18:40 | XMS_ITS | Encounter Summary ---
:1955 Author Organization [facility] Address [address] [place] [address] Care Team Providers Name Role Phone Elsewhere, Pcp Primary Care Provider Unavailable Encounter Details Date Type Department Care Team Description 03/30/2021 Clinical Communication Division of Nephrology Weller[place] tter, and Hypertension in Padmini Hernandez APRNTaw[place], [place] C.N.P., D.N.P. 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 - 03/30/2021 4:16 PM CDT Patient [...] Laboratory Medicine Angélica Granger P.A.-C. [address] [place] [phone] 05/23/2022 Clinical Admitting/Central Communication Scheduling 05/27/2022 Comprehensive Visit Orthopedic Surgery Markus Sams M.D., Ph.D. [address] [place] [phone] 05/29/2022 Office Visit Otorhinolaryngology Dex Matta APRN CDemetriusNDemetriusP., M.S.N. [address] [place] [phone] 05/29/2022 Office Visit Otorhinolaryngology Nadeem Maradiaga, Edmundo, M.S. [address] [place] [phone] 05/31/2022 Appointment Radiology Guilherme Matt, RASTA, Edmundo, M.S. [address] [place] [phone] 06/05/2022 Appointment Laboratory Medicine Angélica Granger P.A.-C. [address] [place] [phone] 06/19/2022 Appointment Laboratory Medicine Angélica Granger P.A.-C. [address] [place] [phone] 07/03/2022 Appointment Laboratory Medicine Angélica Granger P.A.-C. [address] [place] [phone] 07/17/2022 Appointment Laboratory Medicine Angélica Granger P.A.-C. [address] [place] [phone] 07/31/2022 Appointment Laboratory Medicine Angélica Granger P.A.-C. [address] [place] [phone] 08/14/2022 Appointment Laboratory Medicine Angélica Granger P.A.-C. [address] [place] [phone] 08/28/2022 Appointment Laboratory Medicine Angélica Granger P.A.-C. [address] [place] [phone] documented as of this encounter Visit Diagnoses Not on filedocumented in this encounter Additional Health Concerns Assessment Noted Time PHQ-9 Depression Total Score: 4 11/28/2020 10:17 AM CD T documented as of this encounter Care Teams Patient Account Representative Relationship Specialty Start Date End Date Elsewhere, Pcp PCP - General Family Medicine 07/29/17 [facility] - Laboratory Medicine 04/12/[address] [address] documented as of this encounter
--- OUTSIDE RECORDS SUMMARY | 2022-05-17 18:40 | XMS_ITS | Encounter Summary ---
:1955 Author Organization [facility] Address [address] [place] [address] Care Team Providers Name Role Phone Elsewhere, Pcp Primary Care Provider Unavailable Encounter Details Date Type Department Care Team Description 05/23/2021 Hospital Department of [place], Chronic Kidne y Disease Stage 4 Glomerular Filtration Rate 15-29 (HCC); Encounter Laboratory Padmini Hernandez, Hypertension An d Chronic Kidney Disease Stage 4 (HCC); Medicine in [facility], C.N.P., Anemia; [place], [place] D.N.P. Hyperparathyroidism Secondar y (HCC) [address] [place] [phone] Social History Tobacco Use Types Packs/Day [...] at Date Recorded Male 05/16/2020 4:27 PM SHOE SPRAYER documented as of this encounter Medications at [...] MOUTH TWICE DAILY tabletIndications: Transplant Liver (FORMER[facility]) NIFEdipine XL Take 3 tablets (90 270 tablet 3 06/17/2020 (PROCARDIA XL) 30 mg 24 mg total) by mouth hr tablet daily. ofloxacin (FLOXIN) 0.3 Administer 4 drops 5 mL 0 12/2805/24/2021 % otic solution into the right ear 2 (two) times a day. Use 2 drops twice daily with ofloxacin drops (4 drops total) x 14 days [id number] Drink 1st portion of 1 kit 0 05/21/202107/2020 [id number]-C prep at 6 PM the (MOVIPREP) evening [...] tabletIndications: total) by mouth Transplant Liver ([facility]ER[facility]), daily. Medication Therapy Retirement Not Anticoagulant sodium chloride USE 4 ML VIA 0 08/30/2020 021 (NEBUSAL) 3 % nebulizer NEBULIZER TWICE solution DAILY Spiriva Respimat 2.5 INHALE 2 PUFFS BY 4 g 0 01/09/20 21 07/26/2021 mcg/actuation inhaler MOUTH DAILY tacrolimus (PROGRAF) Take 2 capsules (1 360 capsule 3 202007/16/2021 0.5 mg mg total) by mouth 2 capsuleIndications: (two) times a day. Transplant Liver (HCC), Medication Therapy Swing Tender Not Anticoagulant torsemide (DEMADEX) 10 Take 3 [...] I have advised him to report to [facility].He will head there now. [facility] emergency room notified of his arrival. SPRAYER documented in this encounter Plan of Treatment Upcoming Encounters Date Type Specialty Care Team Description 05/22/2022 Appointment Laboratory Medicine Angélica Granger P.A.-C. [address] [place] [phone] 05/23/2022 Clinical Admitting/Central Communication Scheduling 05/27/2022 Comprehensive Visit Orthopedic Surgery Markus Sams M.D., Ph.D. [address] [place] [phone] 05/29/2022 Office Visit Otorhinolaryngology Dex Matta APRN, C.NFabrice., M.S.N. [address] [place] [phone] 05/29/2022 Office Visit Otorhinolaryngology Nadeem Maradiaga P.A.-C., M.S. [address] [place] [phone] 05/31/2022 Appointment Radiology Guilherme Matt MPAS, Edmundo, M.S. [address] [place] [phone] 06/05/2022 Appointment Laboratory Medicine Angélica Granger P.A.-C. [address] [place] [phone] 06/19/2022 Appointment Laboratory Medicine Angélica Granger P.A.-C. [address] [place] [phone] 07/03/2022 Appointment Laboratory Medicine Angélica Granger P.A.-C. [address] [place] [phone] 07/17/2022 Appointment Laboratory Medicine Angélica Granger P.A.-C. [address] [place] [phone] 07/31/2022 Appointment Laboratory Medicine Angélica Granger P.A.-C. [address] [place] [phone] 08/14/2022 Appointment Laboratory Medicine Angélica Granger P.A.-C. [address] [place] [phone] 08/28/2022 Appointment Laboratory Medicine Angélica Granger P.A.-C. [address] [place] [phone] documented as of this encounter Procedures Procedure Name Priority Date/Time Associated Comments Diagnosis RENAL FUNCTION PANEL, Routine 05/23/2021 8:34 AM Chronic Kidne y Results for this S SHOE SPRAYER Disease Stage 4 procedure ar e in Glomerular the results Filtration Rate section. 15-29 (HCC) Hypertension And Chronic Kidney Disease Stage 4 (HCC) Anemia Hyperparathyroidism Secondary (HCC) CBC WITHOUT Routine 05/23/2021 8:34 AM Chronic Kidney Results for this DIFFERENTIAL, B SHOE SPRAYER Disease Stage 4 procedure are in Glomerular the results Filtration Rate section. 15-29 (HCC) Hypertension And Chronic Kidney Disease Stage 4 (HCC) Anemia Hyperparathyroidism Secondary (HCC) PARATHYROID HORMONE Routine 05/23/2021 8:34 AM Chronic Kidney Results for this (PTH), S SHOE SPRAYER Disease Stage 4 procedure ar e in Glomerular the results Filtration Rate section. 15-29 (HCC) Hypertension And Chronic Kidney Disease Stage 4 (HCC) Anemia Hyperparathyroidism Secondary (HCC) documented in this encounter Results Parathyroid Hormone (PTH) (05/23/2021 8:34 AM SHOE SPRAYER) P athologist Signature Parathyroid 53 15 - 65 05/23/2021 [facility] Hormone (PTH), S pg/mL 1:21 PM SHOE SPRAYER Comment: Biotin has been identified by the [...] Blood (Blood, 05/23/2021 8:34 AM 05/23/20 Venous) SHOE SPRAYER 12:48 PM SHOE SPRAYER Padmini Barry APRN, C.N.P., D.N.P. LAB BLOOD AD D-ON Performing Organization Address City/State/ZIP Code Phon e Number [facility] [place], [place] [address] [address] [place] [address] System in [place] [address] (ABNORMAL) Renal Function Panel (05/23/2021 8:34 AM SHOE SPRAYER) Analysis Performed At Patho logist Time Signature Potassium, P 4.1 3.6 - 5.2 05/23/2021 [facility] mmol/L 9:01 AM SHOE SPRAYER Sodium, P 128 (L) 135 - 145 05/23/2021 [facility] mmol/L 9:01 AM SHOE SPRAYER Chloride, P 94 (L) 98 - 107 05/23/2021 [facility] mmol/L 9:01 AM SHOE SPRAYER Bicarbonate, P 21 (L) 22 - 29 05/23/2021 [facility] mmol/L 9:01 AM SHOE SPRAYER Anion Gap, P 13 7 - 15 05/23/2021 [facility] 9:01 AM SHOE SPRAYER BUN (Blood Urea 55 (H) 8 - 24 05/23/2021 [facility] Nitrogen), P mg/dL 9:01 AM SHOE SPRAYER Creatinine 4.25 (H) 0.74 - 05/23/2021 [facility] 1.35 mg/dL 9:01 AM SHOE SPRAYER eGFR-Black/Afri 16 (L) >=60 05/23/2021 [facility] can [place] mL/min/BSA 9:01 AM SHOE SPRAYER Comment: ----ADDITIONAL INFORMATION---- Estimated GFR calculated using the 2009 CKD_EPI creatinine equation. eGFR Non-Black/ <15 (L) >=60 mL/min/BSA 05/23/2021 9:01 AM SHOE SPRAYER [facility]FL [place] Comment: ----ADDITIONAL INFORMATION---- Estimated GFR calculated using the 2009 CKD_EPI creatinine equation. Calcium, Total, P 8.3 (L) 8.8 - 10.2 mg/dL 05/23/2021 9:01 AM SHOE SPRAYER CNFL Glucose, P 119 70 - 140 mg/dL 05/23/2021 9:01 AM SHOE SPRAYER C NFL Albumin, P 3.6 3.5 - 5.0 g/dL 05/23/2021 9:01 AM SHOE SPRAYER C NFL Phosphorus (Inorganic), P 3.8 2.5 - 4.5 mg/dL 05/23/20 9:01 AM SHOE SPRAYER CNFL Specimen Anatomical Collection Method Collection Time Receive d Time (Source) Location / / Volume Laterality Blood (Blood, 05/23/2021 8:34 AM 05/23/20 8:37 Venous) SHOE SPRAYER AM SHOE SPRAYER Padmini Barry APRN, C.N.P., D.N.P. LAB BLOOD AD D-ON Performing Organization Address [facility] Phon e Number [address] [address] [place] [address] System [address] (ABNORMAL) CBC without Differential (05/23/2021 8:34 AM SHOE SPRAYER) [facility] gist Method Time Signature Hemoglobin 6.7 (L) 13.2 - 05/23/2021 [facility] 16.6 g/dL 8:47 AM SHOE SPRAYER Hematocrit 22.2 (L) 38.3 - 05/23/2021 [facility] 48.6 % 8:47 AM SHOE SPRAYER Erythrocytes 2.32 (L) 4.35 - 05/23/2021 CNFL 5.65 8:47 AM SHOE SPRAYER x10(12)/L MCV 95.7 78.2 - 05/23/2021 [facility]FL 97.9 fL 8:47 AM SHOE SPRAYER RBC Distrib Width 13.4 11.8 - 05/23/2021 [facility]FL 14.5 % 8:47 AM SHOE SPRAYER Platelet Count 200 135 - 317 05/23/2021 [facility] x10(9)/L 8:47 AM SHOE SPRAYER Leukocytes 3.4 3.4 - 9.6 05/23/2021 CNFL x10(9)/L 8:47 AM SHOE SPRAYER Specimen Anatomical Collection Method Collection Time Receive d Time (Source) Location / / Volume Laterality Blood (Blood, 05/23/2021 8:34 AM 05/23/20 8:37 Venous) SHOE SPRAYER AM SHOE SPRAYER Arley Banks APRN.N.P., D.N.P. LAB BLOOD AD D-ON Performing Organization Address [facility] Phon e Number [facility]- [address] [place] [address] [place] [address] System in [address] documented in this encounter Visit Diagnoses Diagnosis Chronic Kidney Disease Stage 4 Glomerula r Filtration Rate 15-29 (HCC) Hypertension And Chronic Kidney Disease Stage 4 (HCC) Anemia Hyperparathyroidism Secondary (HCC) documented in this encounter Additional Health Concerns Assessment Noted Time PHQ-9 Depression Total Score: 4 11/28/2020 10:17 AM CD T documented as of this encounter Care Teams Bottom Wheeler Relationship Specialty Start Date End Date Elsewhere, Pcp PCP - General Family Medicine 07/29/17 [facility] - Laboratory Medicine 04/12/20 [place] [address] documented as of this encounter
--- OUTSIDE RECORDS SUMMARY | 2022-05-17 18:40 | XMS_ITS | Encounter Summary ---
:1955 Author Organization [facility] Address [address] [place] [address] Care Team Providers Name Role Phone Elsewhere, Pcp Primary Care Provider Unavailable Encounter Details Date Type Department Care Team Description 05/21/2021 Orders Only Division of Nephrology and Padmini Barry Hypertension in [facility], DOZER OPERATOR, C.N.P ., [place] D.N.P. [address] [place] [phone] Social History Tobacco Use Types Packs/Day [...] at Date Recorded Male 05/16/2020 4:27 PM PARAPLANNER documented as of this encounter Plan of Treatment Upcoming Encounters Date Type Specialty Care Team Description 05/22/2022 Appointment Laboratory Medicine Angélica Granger P.A.-C. [address] [place] [phone] 05/23/2022 Clinical Admitting/Central Communication Scheduling 05/27/2022 Comprehensive Visit Orthopedic Surgery Markus Sams M.D., Ph.D. [address] [place] [phone] 05/29/2022 Office Visit Otorhinolaryngology Dex Matta, RAMONA, C.N.P., M.S.N. [address] [place] [phone] 05/29/2022 Office Visit Otorhinolaryngology Nadeem Maradiaga, P.A.-C., M.S. [address] [place] [phone] 05/31/2022 Appointment Radiology Guilherme Matt MPAS, P.Murtaza.Marie., M.S. [address] [place] [phone] 06/05/2022 Appointment Laboratory Medicine Angélica Granger P.A.-C. [address] [place] [phone] 06/19/2022 Appointment Laboratory Medicine Angélica Granger P.A.-C. [address] [place] [phone] 07/03/2022 Appointment Laboratory Medicine Angélica Granger P.A.-C. [address] [place] [phone] 07/17/2022 Appointment Laboratory Medicine Angélica Granger P.A.-C. [address] [place] [phone] 07/31/2022 Appointment Laboratory Medicine Angélica Granger P.A.-C. [address] [place] [phone] 08/14/2022 Appointment Laboratory Medicine Angélica Granger P.A.-C. [address] [place] [phone] 08/28/2022 Appointment Laboratory Medicine Angélica Granger P.A.-C. [address] [place] [phone] documented as of this encounter Visit Diagnoses Not on filedocumented in this encounter Additional Health Concerns Assessment Noted Time PHQ-9 Depression Total Score: 4 11/28/2020 10:17 AM CD T documented as of this encounter Care Teams Geothermal Electrical Engineer Relationship Specialty Start Date End Date Elsewhere, Pcp PCP - General Family Medicine 07/29/17 [facility] - Laboratory Medicine 04/12/[address] [address] documented as of this encounter
--- OUTSIDE RECORDS SUMMARY | 2022-05-17 18:40 | XMS_ITS | Encounter Summary ---
:1955 Author Organization [facility] Address [address] [place] [address] Care Team Providers Name Role Phone Elsewhere, Pcp Primary Care Provider Unavailable Encounter Details Date Type Department Care Team Description 05/01/2021 Hospital Encounter Department of Eve Garcia Of Chronic Renal Disease; Laboratory Medicine M, FASHION JOURNALIST, C.N.P., Mara surinder Kidney Disease Stage 5 Glomerular Filtration Rate Less Than 15 (HCC) in [facility] [place] [address] [place] [phone] [place], [place] [phone] (Work) [phone] Social History Tobacco Use Types Packs/Day Years [...] at Date Recorded Male 05/16/2020 4:27 PM ASSORTER LAUNDRY documented as of this encounter Medications at [...] mouth Transplant Liver (HCC), daily. Medication Therapy Target Aircraft Controller Not Anticoagulant sodium chloride USE 4 ML VIA 0 08/30/2020 021 (NEBUSAL) 3 % nebulizer NEBULIZER TWICE solution DAILY Spiriva Respimat 2.5 INHALE 2 PUFFS BY 4 g 0 01/09/20 21 07/26/2021 mcg/actuation inhaler MOUTH DAILY tacrolimus (PROGRAF) Take 2 capsules (1 360 capsule 3 202007/16/2021 0.5 mg mg total) by mouth 2 capsuleIndications: (two) times a day. Transplant Liver (HCC), Medication Therapy Target Aircraft Controller Not Anticoagulant torsemide (DEMADEX) 10 Take 3 [...] Laboratory Medicine Angélica Granger P.A.-C. [address] [place] [address] 05/23/2022 Clinical Admitting/Central Communication Scheduling 05/27/2022 Comprehensive Visit Orthopedic Surgery Markus Sams M.D., Ph.D. [address] [place] [phone] 05/29/2022 Office Visit Otorhinolaryngology Dex Matta APRN, C.N.P., M.S.N. [address] [place] [phone] 05/29/2022 Office Visit Otorhinolaryngology Nadeem Maradiaga, Evan.Tom., M.S. [address] [place] [phone] 05/31/2022 Appointment Radiology Guilherme Matt MPAS, PMaryanne., M.S. [address] [place] [phone] 06/05/2022 Appointment Laboratory Medicine Angélica Granger P.A.-C. [address] [place] [phone] 06/19/2022 Appointment Laboratory Medicine Angélica Granger P.A.-C. [address] [place] [phone] 07/03/2022 Appointment Laboratory Medicine Angélica Granger P.A.-C. [address] [place] [phone] 07/17/2022 Appointment Laboratory Medicine Angélica Granger P.A.-C. [address] [place] [phone] 07/31/2022 Appointment Laboratory Medicine Angélica Granger P.A.-C. [address] [place] [address] 08/14/2022 Appointment Laboratory Medicine Angélica Granger P.A.-C. [address] [place] [address] 08/28/2022 Appointment Laboratory Medicine Angélica Granger P.A.-C. [address] [place] [address] documented as of this encounter Procedures Procedure Name Priority Date/Time Associated Diagnosis Comme nts CYSTATIN C WITH Routine 05/01/2021 10:24 AM Anemia Of Chronic Results for this EGFR ASSORTER LAUNDRY Renal Disease procedure are in Chronic Kidney the results Disease Stage 5 section. Glomerular Filtration Rate Less Than 15 (HCC) IRON AND TOT Routine 05/01/2021 10:24 AM Anemia Of Chronic Res ults for this IRON-BINDING ASSORTER LAUNDRY Renal Disease procedure are in CAPACITY, S/P Chronic Kidney the results Disease Stage 5 section. Glomerular Filtration Rate Less Than 15 (HCC) RETICULOCYTES, B Routine 05/01/2021 10:24 AM Anemia Of Chronic Results for this ASSORTER LAUNDRY Renal Disease procedure are in Chronic Kidney the results Disease Stage 5 section. Glomerular Filtration Rate Less Than 15 (HCC) FOLATE, S Routine 05/01/2021 10:24 AM Anemia Of Chronic Res ults for this ASSORTER LAUNDRY Renal Disease procedure are in Chronic Kidney the results Disease Stage 5 section. Glomerular Filtration Rate Less Than 15 (HCC) FERRITIN, S Routine 05/01/2021 10:24 AM Anemia Of Chronic Res ults for this ASSORTER LAUNDRY Renal Disease procedure are in Chronic Kidney the results Disease Stage 5 section. Glomerular Filtration Rate Less Than 15 (HCC) BASIC METABOLIC Routine 05/01/2021 10:24 AM Anemia Of Chronic Results for this PANEL, S/P ASSORTER LAUNDRY Renal Disease procedure are in Chronic Kidney the results Disease Stage 5 section. Glomerular Filtration Rate Less Than 15 (HCC) documented in this encounter Results Folate (05/01/2021 10:24 AM ASSORTER LAUNDRY) P athologist Signature Folate, S .0 >=4.0 mcg/L 05/01/2021 3:41 ECLR PM ASSORTER LAUNDRY Comment: Biotin has been identified by the [...] (Blood, 05/01/2021 10:24 05/01/2021 2:57 Venous) AM ASSORTER LAUNDRY PM ASSORTER LAUNDRY Eve Garcia APRN, C.N.P., D.N.P. LAB BLOOD ADD- ON Performing Organization Address City/State/ZIP Code Phon e Number [facility]- [address] [place] [phone] [facility] [place] [address] System [address] (ABNORMAL) Basic Metabolic Panel (05/01/2021 10:24 AM ASSORTER LAUNDRY) Analysis Performed At Patho logist Time Signature Potassium, P 3.9 3.6 - 5.2 05/01/2021 CNFL mmol/L 10:45 AM ASSORTER LAUNDRY Sodium, P 133 (L) 135 - 145 05/01/2021 CNFL mmol/L 10:45 AM ASSORTER LAUNDRY Chloride, P 95 (L) 98 - 107 05/01/2021 CNFL mmol/L 10:45 AM ASSORTER LAUNDRY Bicarbonate, P 22 22 - 29 05/01/2021 CNFL mmol/L 10:45 AM ASSORTER LAUNDRY Anion Gap, P 16 (H) 7 - 15 05/01/2021 CNFL 10:45 AM ASSORTER LAUNDRY BUN (Blood Urea 66 (H) 8 - 24 05/01/2021 CNFL Nitrogen), P mg/dL 10:45 AM ASSORTER LAUNDRY Creatinine 3.93 (H) 0.74 - 05/01/2021 CNFL 1.35 mg/dL 10:45 AM ASSORTER LAUNDRY eGFR-Black/Afri 17 (L) >=60 05/01/2021 CNFL can Zimbabwean mL/min/BSA 10:45 AM ASSORTER LAUNDRY Comment: ----ADDITIONAL INFORMATION---- Estimated GFR calculated using the 2009 CKD_EPI creatinine equation. eGFR Non-Black/ <15 (L) >=60 mL/min/BSA 05/01/2021 10:45 AM CNFL [place]an ASSORTER LAUNDRY Comment: ----ADDITIONAL INFORMATION---- Estimated GFR calculated using the 2009 CKD_EPI creatinine equation. Calcium, Total, P 8.7 (L) 8.8 - 10.2 mg/dL 05/01/2021 10:4 5 AM ASSORTER LAUNDRY CNFL Glucose, P 144 (H) 70 - 140 mg/dL 05/01/2021 10:45 AM ASSORTER LAUNDRY CNFL Specimen Anatomical Collection Method Collection Time Receive d Time (Source) Location / / Volume Laterality Blood (Blood, 05/01/2021 10:24 05/01/2021 Venous) AM ASSORTER LAUNDRY 10:27 AM ASSORTER LAUNDRY Eve Garcia APRN, C.N.P., D.N.P. LAB BLOOD ADD- ON Performing Organization Address City/State/ZIP Code Phon e Number [id number] [place] [address] [place] [address] (ABNORMAL) Cystatin C with Estimated GFR, S (05/01/2021 10:24 AM ASSORTER LAUNDRY) athologist Signature eGFR by 7 (L) >60 05/02/2021 DTL Cystatin C mL/min/BSA 7:38 AM ASSORTER LAUNDRY Comment: Estimated GFR calculated using the CKD-E [...] 0.67 - 1.21 mg/L 05/02/2021 7:38 AM ASSORTER LAUNDRY DTL Specimen Anatomical Collection Method Collection Time Receive d Time (Source) Location / / Volume Laterality Blood (Blood, 05/01/2021 10:24 05/02/2021 7:20 Venous) AM ASSORTER LAUNDRY AM ASSORTER LAUNDRY Janette Velasquez APRNN.Saeed, D.N.P. LAB BLOOD ADD- ON Performing Organization Address City/[facility]/ZIP Code Phon e Number [facility] - 200 [place], [place] [address] [facility] [place] [address] Laboratories-[facility] [address] [facility] Ferritin (05/01/2021 10:24 AM ASSORTER LAUNDRY) athologist Signature Ferritin, S 345 31 - 409 05/01/2021 RDWG mcg/L 1:35 PM ASSORTER LAUNDRY Comment: Biotin has been identified by the [facility] as a potential interfering substance. ??Higher concentr ations of biotin may be found in multivitamins, hair/nail supple ments, and workout supplements. ??If the result does not ma [facility] clinical observations, repeat testing after patient refrains fr om the use of supplements for at least 12 hours. Specimen Anatomical Collection Method Collection Time Receive d Time (Source) Location / / Volume Laterality Blood (Blood, 05/01/2021 10:24 05/01/2021 Venous) AM ASSORTER LAUNDRY 12:49 PM ASSORTER LAUNDRY Arley Velasquez APRN.N.Saeed, D.N.P. LAB BLOOD ADD- ON Performing Organization Address City/[facility]/ZIP Code Phon e Number [facility]- [facility] [address] [place], [place] [address] [place] [address] System in [place] [address] (ABNORMAL) Iron and Total Iron-Binding Capacity (05/01/2021 10:24 AM ASSORTER LAUNDRY) athologist Signature Iron 48 (L) 50 - 150 05/01/2021 RDWG mcg/dL 1:26 PM ASSORTER LAUNDRY Total Iron 215 (L) 250 - 400 05/01/2021 RDW[facility] Binding mcg/dL 1:26 PM ASSORTER LAUNDRY Capacity Percent 22 14 - 50 % 05/01/2021 RDWG Saturation 1:26 PM ASSORTER LAUNDRY Specimen Anatomical Collection Method Collection Time Receive d Time (Source) Location / / Volume Laterality Blood (Blood, 05/01/2021 10:24 05/01/2021 Venous) AM ASSORTER LAUNDRY 12:49 PM ASSORTER LAUNDRY Eve Garcia APRN, C.N.P., D.N.P. LAB BLOOD ADD- ON Performing Organization Address City/State/ZIP Code Phon e Number [facility]- [address] [place], [place] [address] [place] [address] System in [place] [address] (ABNORMAL) Reticulocytes (05/01/2021 10:24 AM ASSORTER LAUNDRY) [facility] gist Method Time Signature Reticulocytes, B 3.41 (H) 0.60 - 05/01/2021 RDWG 2.71 % 1:15 PM ASSORTER LAUNDRY Absolute 91.0 30.4 - 05/01/2021 RDWG Reticulocyte 110.9 1:15 PM ASSORTER LAUNDRY x10(9)/L Specimen Anatomical Collection Method Collection Time Receive d Time (Source) Location / / Volume Laterality Blood (Blood, 05/01/2021 10:24 05/01/2021 Venous) AM ASSORTER LAUNDRY 12:49 PM ASSORTER LAUNDRY Eve Garcia APRN, C.N.P., D.N.P. LAB BLOOD ADD- ON Performing Organization Address City/State/ZIP Code Phon e Number [facility]- [address] [place], [place] [address] [place] [address] System in [place] [address] documented in this encounter Visit Diagnoses Diagnosis Anemia Of Chronic Renal Disease Chronic Kidney Disease Stage 5 Glomerula r Filtration Rate Less Than 15 (HCC) documented in this encounter Additional Health Concerns Assessment Noted Time PHQ-9 Depression Total Score: 4 11/28/2020 10:17 AM CD T documented as of this encounter Care Teams Data Control Clerk Relationship Specialty Start Date End Date Elsewhere, Pcp PCP - General Family Medicine 07/29/17 [facility] - Laboratory Medicine 04/12/[address] [address] documented as of this encounter
--- OUTSIDE RECORDS SUMMARY | 2022-05-17 18:40 | XMS_ITS | Encounter Summary ---
:1955 Author Organization [facility] Address [address] [place] [address] Care Team Providers Name Role Phone Elsewhere, Pcp Primary Care Provider Unavailable Encounter Details Date Type Department Care Team Description 03/22/2021 Hospital Encounter Department of Willis Herrera Pret ransplant Recipient Evaluation Exam; Laboratory Medicine MDemetriusDDemetrius Chronic Kidney Disease Stage 4 Glomerula r Filtration Rate 15-29 (HCC) in [place] [phone] [place] [phone] [place], [place] (Work) [phone] Social History Tobacco Use [...] Male 05/16/2020 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 Medication Therapy Intermediate Not Anticoagulant sodium chloride USE 4 ML VIA 0 08/30/2020 021 (NEBUSAL) 3 % nebulizer NEBULIZER TWICE solution DAILY Spiriva Respimat 2.5 INHALE 2 PUFFS BY 4 g 0 01/09/20 21 07/26/2021 mcg/actuation inhaler MOUTH DAILY tacrolimus (PROGRAF) Take 2 capsules (1 360 capsule 3 202007/16/2021 0.5 mg mg total) by mouth 2 capsuleIndications: (two) times a day. Transplant Liver (HCC), Medication Therapy General Utility Maintenance Repairer Not Anticoagulant torsemide (DEMADEX) 10 Take [...] Laboratory Medicine Angélica Granger P.A.-C. [address] [place] [address] 05/23/2022 Clinical Admitting/Central Communication Scheduling 05/27/2022 Comprehensive Visit Orthopedic Surgery Markus Sams M.D., Ph.D. [address] [place] [phone] 05/29/2022 Office Visit Otorhinolaryngology Dex Matta APRN, C.NJuan Miguel, M.S.N. [address] [place] [phone] 05/29/2022 Office Visit Otorhinolaryngology Nadeem Maradiaga P.A.-C., M.S. [address] [place] [phone] 05/31/2022 Appointment Radiology Guilherme Matt MPAS, Edmundo, M.S. [address] [place] [phone] 06/05/2022 Appointment Laboratory Medicine Angélica Granger P.A.-C. [address] [place] [phone] 06/19/2022 Appointment Laboratory Medicine Angélica Granger P.A.-C. [address] [place] [phone] 07/03/2022 Appointment Laboratory Medicine Angélica Granger P.A.-C. [address] [place] [phone] 07/17/2022 Appointment Laboratory Medicine Angélica Granger P.A.-C. [address] [place] [phone] 07/31/2022 Appointment Laboratory Medicine GunAngélica wilcox P.A.-C. [address] [place] [address] 08/14/2022 Appointment Laboratory Medicine Angélica Granger P.A.-C. [address] [place] [address] 08/28/2022 Appointment Laboratory Medicine Angélica Granger P.A.-C. [address] [place] [phone] Scheduled Orders Name Type Priority Associated Diagnoses [...] as of this encounter Care Teams Machine Heel Seat Fitter Relationship Specialty Start Date End Date Elsewhere, Pcp PCP - General Family Medicine 07/29/17 [facility] - Laboratory Medicine 04/12/[address] [address] documented as of this encounter
--- OUTSIDE RECORDS SUMMARY | 2022-05-17 18:40 | XMS_ITS | Encounter Summary ---
:1955 Author Organization [facility] Address [address] [place] [address] Care Team Providers Name Role Phone Elsewhere, Pcp Primary Care Provider Unavailable Reason for Visit Reason Comments Cancel Colonoscopy and RX prep Encounter Details Date Type Department Care Team Description 05/21/2021 Clinical Communication Division of Francisco Barry Colonoscopy Nephrology and Padmini Hernandez APRN, and RX prep Hypertension, C.N.P., D.N.P. 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 Singh called stating he was able to get an earlier appointment for his colonoscopy at [facility]. He would like to cancel his colonoscopy here and if you could also cancel his RX prep that you sent to the pharmacy. -- I will contact the scheduling office to cancel his colonoscopy. Thank you. -Pam INE MAINTENANCE SERVICER documented in this encounter Plan of Treatment Upcoming Encounters Date Type Specialty Care Team Description 05/22/2022 Appointment Laboratory Medicine Angélica Granger P.A.-C. [address] [place] [phone] 05/23/2022 Clinical Admitting/Central Communication Scheduling 05/27/2022 Comprehensive Visit Orthopedic Surgery Markus Sams M.D., Ph.D. [address] [place] [phone] 05/29/2022 Office Visit Otorhinolaryngology Dex Matta APRN, C.N.P., M.S.N. [address] [place] [phone] 05/29/2022 Office Visit Otorhinolaryngology Nadeem Maradiaga P.A.-C., M.S. [address] [place] [phone] 05/31/2022 Appointment Radiology Guilherme Matt MPAS, P.A.-C., M.S. [address] [place] [phone] 06/05/2022 Appointment Laboratory Medicine Angélica Granger P.A.-C. [address] [place] [phone] 06/19/2022 Appointment Laboratory Medicine Angélica Granger P.A.-C. [address] [place] [phone] 07/03/2022 Appointment Laboratory Medicine Angélica Granger P.A.-C. [address] [place] [phone] 07/17/2022 Appointment Laboratory Medicine Angélica Granger P.A.-C. [address] [place] [phone] 07/31/2022 Appointment Laboratory Medicine Angélica Granger P.A.-C. [address] [place] [phone] 08/14/2022 Appointment Laboratory Medicine Angélica Granger P.A.-C. [address] [place] [phone] 08/28/2022 Appointment Laboratory Medicine Angélica Granger P.A.-C. [address] [place] [phone] documented as of this encounter Visit Diagnoses Not on filedocumented in this encounter Additional Health Concerns Assessment Noted Time PHQ-9 Depression Total Score: 4 11/28/2020 10:17 AM CD T documented as of this encounter Care Teams Poising Inspector Relationship Specialty Start Date End Date Elsewhere, Pcp PCP - General Family Medicine 07/29/17 [facility] - Laboratory Medicine 04/12/[address] [address] documented as of this encounter
--- OUTSIDE RECORDS SUMMARY | 2022-05-17 18:40 | XMS_ITS | Encounter Summary ---
:[address] [facility] Address [address] [place] [address] Care Team Providers Name Role Phone Elsewhere, Pcp Primary Care Provider Unavailable Encounter Details Date Type Department Care Team Description 03/15/2021 Orders Only Curt Garces Javier, Gail Griffiths Kidney Disease; Center for M.D. 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 [address] [place] [phone] 05/23/2022 Clinical Admitting/Central Communication Scheduling 05/27/2022 Comprehensive Visit Orthopedic Surgery Markus Sams M.D., Ph.D. [address] [place] [phone] 05/29/2022 Office Visit Otorhinolaryngology Dex Matta, FILER METAL PATTERNS, C.N.P., M.S.N. [address] [place] [phone] 05/29/2022 Office Visit Otorhinolaryngology Nadeem Maradiaga, PEdgar.-Arley., M.S. [address] [place] [phone] 05/31/2022 Appointment Radiology Guilherme Matt MPAS, Jennifer., M.S. [address] [place] [phone] 06/05/2022 Appointment Laboratory Medicine Angélica Granger P.A.-C. [address] [place] [phone] 06/19/2022 Appointment Laboratory Medicine Angélica Granger P.A.-C. [address] [place] [phone] 07/03/2022 Appointment Laboratory Medicine Angélica Granger P.A.-C. [address] [place] [phone] 07/17/2022 Appointment Laboratory Medicine Angélica Granger P.A.-C. [address] [place] [phone] 07/31/2022 Appointment Laboratory Medicine Angélica Granger P.A.-C. [address] [place] [phone] 08/14/2022 Appointment Laboratory Medicine Angélica Granger P.A.-C. [address] [place] [phone] 08/28/2022 Appointment Laboratory Medicine Angélica Granger P.A.-C. [address] [place] [phone] documented as of this encounter Results HLA Class II SAB Antibody Screen (03/22/2021 2:05 PM CDT) [facility] Method Time Signature Class II SAB Negative Not Applicable 03/27/2021 DBB8 Overall 10:02 AM CDT Result Class II SAB 0 03/27/2021 DBB8 cPRA 10:02 AM CDT Comment: ----ADDITIONAL INFORMATION---- This PRA is a [facility] calculated PRA. PRA is based on the antigen frequency of the Tissue Typing patient a nd donor population. ??PRA reflects all antibodie s with a normalized value (MFI) above 300. SAB DRB1 Specificity NONE 03/27/2021 10:02 AM CDT DBB8 SAB [id number] Specificity NONE 03/27/2021 10:02 AM CDT DBB8 SAB DQB1 Specificity NONE 03/27/2021 10:02 AM CDT DBB8 SAB DPB1 Specificity NONE 03/27/2021 10:02 AM CDT DBB8 Comment: ----ADDITIONAL INFORMATION---- Method: Luminex Flow Cytometry CLIA: [id number] ??CLIA Administration Internship: KRISTAL MIMS MD,PhD Specimen Anatomical Collection Method Collection Time Receive d Time (Source) Location / / Volume Laterality Blood (Blood, 03/22/2021 2:05 PM 03/25/20 21 2:10 Venous) CDT PM CDT Resulting Agency Comment Mailed In Specimen Willis Herrera M.D. LAB HLA ORDERABLES Performing Organization Address City/State/ZIP Code Phon e Number [facility] - [address] [place], [place] [address] [facility] [place] [address] Laboratories-[facility] [address] HLA Class I SAB Antibody Screen (03/22/2021 2:05 PM CDT) [facility] Method Time Signature Class I SAB Negative Not Applicable 03/27/2021 DBB8 Overall 7:56 AM CDT Result Class I SAB 0 03/27/2021 DBB8 cPRA 7:56 AM CDT Comment: ----ADDITIONAL INFORMATION---- This PRA is a [facility] calculated PRA. [...] ----ADDITIONAL INFORMATION---- Method: Luminex Flow Cytometry CLIA: [id number] ??CLIA Administration Internship: KRISTAL MIMS MD,PhD Specimen Anatomical Collection Method Collection Time Receive d Time (Source) Location / / Volume Laterality Blood (Blood, 03/22/2021 2:05 PM 03/25/20 21 2:10 Venous) CDT PM CDT Resulting Agency Comment Mailed In Specimen Willis Herrera M.D. LAB HLA ORDERABLES Performing Organization Address City/State/[facility] Code Phon e Number [facility] - [address] [place], [place] [address] [facility] [place] [address] [place] [address] Laboratories-[facility] [address] documented in this encounter Visit Diagnoses Diagnosis Chronic Kidney Disease Pretransplant Recipient Evaluation Exam documented in this encounter Additional Health Concerns Assessment Noted Time PHQ-9 Depression Total Score: 4 11/28/2020 10:17 AM CD T documented as of this encounter Care Teams Japanese Tutor Relationship Specialty Start Date End Date Elsewhere, Pcp PCP - General Family Medicine 07/29/17 [facility] - Laboratory Medicine 04/12/[address] [address] documented as of this encounter
--- OUTSIDE RECORDS SUMMARY | 2022-05-17 18:40 | XMS_ITS | Encounter Summary ---
:1955 Author Organization [facility] Address [address] [place] [address] Care Team Providers Name Role Phone Elsewhere, Pcp Primary Care Provider Unavailable Encounter Details Date Type Department Care Team Description 05/22/2021 Clinical Communication Division of Nephrology Eve Garcia and Hypertension in RAMONA, C.N.P., [place], [place] D.N.P. 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 - 05/22/2021 4:59 PM CST Call to the patient. He does have blood in his stool per hemocult testing that was done. We are going to get a colonoscopy here done at [facility]. He is having labs tomorrow and we can review his CBC and kidney function. His care was discussed with my colleague Padmini Barry CNP. He knows he can call me tomorrow if he needs to discuss his lab results. T ROCK TAPER documented in this encounter Plan of Treatment Upcoming Encounters Date Type Specialty Care Team Description 05/22/2022 Appointment Laboratory Medicine Angélica Granger P.A.-C. [address] [place] [phone] 05/23/2022 Clinical Admitting/Central Communication Scheduling 05/27/2022 Comprehensive Visit Orthopedic Surgery Markus Sams M.D., Ph.D. [address] [place] [phone] 05/29/2022 Office Visit Otorhinolaryngology Dex Matta APRN, C.N.P., M.S.N. [address] [place] [phone] 05/29/2022 Office Visit Otorhinolaryngology Nadeem Maradiaga P.A.-C., M.S. [address] [place] [address] [phone] 05/31/2022 Appointment Radiology Guilherme Matt MPAS, P.A.-C., M.S. [address] [place] [phone] 06/05/2022 Appointment Laboratory Medicine Angélica Granger P.A.-C. [address] [place] [phone] 06/19/2022 Appointment Laboratory Medicine Angélica Granger P.A.-C. [address] [place] [address] [phone] 07/03/2022 Appointment Laboratory Medicine Angélica Granger P.A.-C. [address] [place] [address] [phone] 07/17/2022 Appointment Laboratory Medicine Angélica Granger P.A.-C. [address] [place] [phone] 07/31/2022 Appointment Laboratory Medicine Angélica Granger P.A.-C. [address] [place] [phone] 08/14/2022 Appointment Laboratory Medicine Angélica Granger P.A.-C. [address] [place] [phone] 08/28/2022 Appointment Laboratory Medicine Angélica Granger P.A.-C. [address] [place] [address] documented as of this encounter Visit Diagnoses Not on filedocumented in this encounter Additional Health Concerns Assessment Noted Time PHQ-9 Depression Total Score: 4 11/28/2020 10:17 AM CD T documented as of this encounter Care Teams After School Driver Relationship Specialty Start Date End Date Elsewhere, Pcp PCP - General Family Medicine 07/29/17 [facility] - Laboratory Medicine 04/12/[address] [address] documented as of this encounter
--- OUTSIDE RECORDS SUMMARY | 2022-05-17 18:41 | XMS_ITS | Encounter Summary ---
:1955 Author Organization [facility] Address [address] [place] [address] Care Team Providers Name Role Phone Elsewhere, Pcp Primary Care Provider Unavailable Reason for Visit Reason Comments Med Refill Encounter Details Date Type Department Care Team Description 02/22/2021 Refill Division of Nephrology and Ursula Rey, RDemetriusN. 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 [address] [place] [phone] 05/23/2022 Clinical Admitting/Central Communication Scheduling 05/27/2022 Comprehensive Visit Orthopedic Surgery Markus Sams M.D., Ph.D. [address] [place] [address] [phone] 05/29/2022 Office Visit Otorhinolaryngology Dex Matta APRN, C.N.P., M.S.N. [address] [place] [phone] 05/29/2022 Office Visit Otorhinolaryngology Nadeem Maradiaga, P.Murtaza.-Arley., M.S. [address] [place] [address] [phone] 05/31/2022 Appointment Radiology Guilherme Matt MPAS, Jennifer., M.S. [address] [place] [address] [phone] 06/05/2022 Appointment Laboratory Medicine Angélica Granger P.A.-C. [address] [place] [phone] 06/19/2022 Appointment Laboratory Medicine Angélica Granger P.A.-C. [address] [place] [phone] 07/03/2022 Appointment Laboratory Medicine Angélica Granger P.A.-C. [address] [place] [phone] 07/17/2022 Appointment Laboratory Medicine Angélica Granger P.A.-C. [address] [place] [phone] 07/31/2022 Appointment Laboratory Medicine Angélica Granger P.A.-C. [address] [place] [phone] 08/14/2022 Appointment Laboratory Medicine Angélica Granger P.A.-C. [address] [place] [phone] 08/28/2022 Appointment Laboratory Medicine Angélica Granger P.A.-C. [address] [place] [phone] documented as of this encounter Visit Diagnoses Not on filedocumented in this encounter Additional Health Concerns Assessment Noted Time PHQ-9 Depression Total Score: 4 11/28/2020 10:17 AM CD T documented as of this encounter Care Teams Information Security Relationship Specialty Start Date End Date Elsewhere, Pcp PCP - General Family Medicine 07/29/17 [facility] - Laboratory Medicine 04/12/[address] [address] documented as of this encounter
--- OUTSIDE RECORDS SUMMARY | 2022-05-17 18:41 | XMS_ITS | Encounter Summary ---
:[address] 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 [address] [place] [phone] 05/23/2022 Clinical Admitting/Central Communication Scheduling 05/27/2022 Comprehensive Visit Orthopedic Surgery Markus Sams M.D., Ph.D. [address] [place] [phone] 05/29/2022 Office Visit Otorhinolaryngology Dex Matta, RAMONA, C.N.P., M.S.N. [address] [place] [phone] 05/29/2022 Office Visit Otorhinolaryngology Nadeem Maradiaga, P.Murtaza.-C., M.S. [address] [place] [address] [phone] 05/31/2022 Appointment Radiology Guilherme Matt MPAS, P.Murtaza.Marie., M.S. [address] [place] [address] [phone] 06/05/2022 Appointment Laboratory Medicine Angélica Granger P.A.-C. [address] [place] [phone] 06/19/2022 Appointment Laboratory Medicine Angélica Granger P.A.-C. [address] [place] [phone] 07/03/2022 Appointment Laboratory Medicine Angélica Granger P.A.-C. [address] [place] [phone] 07/17/2022 Appointment Laboratory Medicine Angélica Granger P.A.-C. [address] [place] [phone] 07/31/2022 Appointment Laboratory Medicine Angélica Granger P.A.-C. [address] [place] [phone] 08/14/2022 Appointment Laboratory Medicine Angélica Granger P.A.-C. [address] [place] [phone] 08/28/2022 Appointment Laboratory Medicine Angélica Granger P.A.-C. [address] [place] [phone] documented as of this encounter Visit Diagnoses Not on filedocumented in this encounter Additional Health Concerns Assessment Noted Time PHQ-9 Depression Total Score: 4 11/28/2020 10:17 AM CD T documented as of this encounter Care Teams Community Relations Coordinator Relationship Specialty Start Date End Date Elsewhere, Pcp PCP - General Family Medicine 07/29/17 [facility] - Laboratory Medicine 04/12/[address] [address] documented as of this encounter
--- OUTSIDE RECORDS SUMMARY | 2022-05-17 18:41 | XMS_ITS | Encounter Summary ---
:1955 Author Organization [facility] Address [address] [place] [address] Care Team Providers Name Role Phone Elsewhere, Pcp Primary Care Provider Unavailable Encounter Details Date Type Department Care Team Description 03/12/2021 Hospital Encounter Department of Eve Garcia Kidney Laboratory Medicine RAMONA Draper, C.N.PDemetrius, Dise ase Stage 4 in Louie HartNJuan Miguel Glomerular [place] [address] [facility] Filtration Rate [address] [address] [place], [place] [address]-29 ([facility]) [address] [address] [place], [place] [phone] [address] (Work) [phone] Social History Tobacco Use Types Packs/Day Years [...] Date Recorded 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 Medication Therapy Communications Agent Not Anticoagulant sodium chloride USE 4 ML VIA 0 08/30/2020 021 (NEBUSAL) 3 % nebulizer NEBULIZER TWICE solution DAILY Spiriva Respimat 2.5 INHALE 2 PUFFS BY 4 g 0 01/09/20 21 07/26/2021 mcg/actuation inhaler MOUTH DAILY tacrolimus (PROGRAF) Take 2 capsules (1 360 capsule 3 202007/16/2021 0.5 mg mg total) by mouth 2 capsuleIndications: (two) times a day. Transplant Liver (HCC), Medication Therapy Communications Agent Not Anticoagulant torsemide (DEMADEX) 10 Take 3 [...] Laboratory Medicine Angélica Granger P.A.-C. [address] [place] [address] 05/23/2022 Clinical Admitting/Central Communication Scheduling 05/27/2022 Comprehensive Visit Orthopedic Surgery Markus Sams M.D., Ph.D. [address] [place] [phone] 05/29/2022 Office Visit Otorhinolaryngology Dex Matta APRN, C.N.P., M.S.N. [address] [place] [address] [phone] 05/29/2022 Office Visit Otorhinolaryngology Nadeem Maradiaga, PMaryanne., M.S. [address] [place] [phone] 05/31/2022 Appointment Radiology Guilherme Matt, RASTA, PMaryanne., M.S. [address] [place] [phone] 06/05/2022 Appointment Laboratory Medicine Angélica Granger P.A.-C. [address] [place] [phone] 06/19/2022 Appointment Laboratory Medicine Angélica Granger P.A.-C. [address] [place] [phone] 07/03/2022 Appointment Laboratory Medicine Angélica Granger P.A.-C. [address] [place] [phone] 07/17/2022 Appointment Laboratory Medicine Angélica Granger P.A.-C. [address] [place] [phone] 07/31/2022 Appointment Laboratory Medicine Angélica Granger P.A.-C. [address] [place] [address] 08/14/2022 Appointment Laboratory Medicine Angélica Granger P.A.-C. [address] [place] [address] 08/28/2022 Appointment Laboratory Medicine Angélica Granger P.A.-C. [address] [place] [phone] documented as of this encounter Procedures Procedure Name Priority Date/Time Associated Comments Diagnosis RENAL FUNCTION PANEL, Routine 03/12/2021 7:52 AM Chronic Kidne y Results for this S CDT Disease Stage 4 procedure ar e in Glomerular the results Filtration Rate section. ([facility]) CYSTATIN C WITH EGFR Routine 03/12/2021 7:52 AM Chronic Kidney Results for this CDT Disease Stage 4 procedure ar e in Glomerular the results Filtration Rate section. ([facility]) IRON AND TOT Routine 03/12/2021 7:52 AM Chronic Kidney Results for this IRON-BINDING CDT Disease Stage 4 procedure ar e in CAPACITY, S/P Glomerular the results Filtration Rate section. ([facility]) CBC WITHOUT Routine 03/12/2021 7:52 AM Chronic Kidney Results for this DIFFERENTIAL, B CDT Disease Stage 4 procedure are in Glomerular the results Filtration Rate section. ([facility]) PARATHYROID HORMONE Routine 03/12/2021 7:52 AM Chronic Kidney Results for this (PTH), S CDT Disease Stage 4 procedure ar e in Glomerular the results Filtration Rate section. ([facility]) FERRITIN, S Routine 03/12/2021 7:52 AM Chronic Kidney Results for this CDT Disease Stage 4 procedure ar e in Glomerular the results Filtration Rate section. ([facility]) documented in this encounter Results Ferritin (03/12/2021 7:52 AM CDT) P athologist Signature Ferritin, S 389 31 - 409 03/12/2021 [facility] mcg/L 2:11 PM CDT Comment: Biotin has been identified by the [facility] as a potential interfering substance. ??Higher concentr ations of biotin may be found in multivitamins, hair/nail supple ments, and workout supplements. ??If the result does not [facility] clinical observations, repeat testing after patient refrains fr om the use of supplements for at least 12 hours. Specimen Anatomical Collection Method Collection Time Receive d Time (Source) Location / / Volume Laterality Blood (Blood, 03/12/2021 7:52 AM 03/12/20 1:34 Venous) CDT PM CDT Eve Garcia APRN, C.N.P., D.N.P. LAB BLOOD ADD- ON Performing Organization Address City/State/ZIP Code Phon e Number [facility]- [address] [place], [place] [address] [facility] [place] [address] System in [place] [place] (ABNORMAL) Iron and Total Iron-Binding Capacity (03/12/2021 [...] Organization Address City/State/ZIP Code Phon e Number [facility]- [address] [place], [place] [address] [facility] [place] [address] System in [place] [place] (ABNORMAL) Cystatin C with Estimated GFR, S [...] - 1.21 mg/L 03/13/2021 8:23 AM CDT DTL Specimen Anatomical Collection Method Collection Time Receive d Time (Source) Location / / Volume Laterality Blood (Blood, 03/12/2021 7:52 AM 03/13/20 7:49 Venous) CDT AM CDT Eve Garcia APRN, C.N.P., D.N.P. LAB BLOOD ADD- ON Performing Organization Address City/State/ZIP Code Phon e Number [facility] - [address] [place], [place] [address] [facility] [place] [address] Laboratories-[facility] [address] (ABNORMAL) Parathyroid Hormone (PTH) (03/12/2021 7:52 AM CDT) athologist Signature Parathyroid 67 (H) 15 - 65 03/12/2021 [facility] Hormone (PTH), S pg/mL 2:11 PM CDT Comment: Biotin has been identified by the [facility] as a potential interfering substance. ??Higher concentr ations of biotin may be found in multivitamins, hair/nail supple ments, and workout supplements. ??If the result does not [facility] clinical observations, repeat testing after patient refrains fr om the use of supplements for at least 12 hours. Specimen Anatomical Collection Method Collection Time Receive d Time (Source) Location / / Volume Laterality Blood (Blood, 03/12/2021 7:52 AM 03/12/20 1:34 Venous) CDT PM CDT Arley Velasquez APRN.N.PDemetrius, D.N.P. LAB BLOOD ADD- ON Performing Organization Address City/State/ZIP Code Phon e Number [facility]- [address] [facility] [place] [place] [address] [facility] [place] [address] System in [place] [address] (ABNORMAL) Renal Function Panel (03/12/2021 7:52 AM [...] eGFR-Black/Afri 21 (L) >=60 03/12/2021 [facility] can [place] mL/min/BSA 8:47 AM CDT Comment: ----ADDITIONAL INFORMATION---- Estimated GFR calculated using the 2009 CKD_EPI creatinine equation. eGFR Non-Black/ 18 (L) >=60 mL/min/BSA 03/12/2021 8:47 AM CDT CN[facility] [place] Comment: ----ADDITIONAL INFORMATION---- Estimated GFR calculated using [...] 7:53 Venous) CDT AM CDT Eve Garcia APRN C.N.P., D.N.P. LAB BLOOD ADD- ON Performing Organization Address City/State/ZIP Code Phon e Number [facility]- [address] [place] [address] [place] [address] System [address] (ABNORMAL) CBC without Differential (03/12/2021 7:52 AM CDT) [facility] gist Method Time Signature Hemoglobin 7.9 [...] AM 03/12/20 7:54 Venous) CDT AM CDT Arley Velasquez APRN.NDemetriusPDemetrius, D.N.P. LAB BLOOD ADD- ON Performing Organization Address City/State/ZIP Code Phon e Number [facility]- [address] [place] [address] [place] [address] [place] [address] [address] documented in this encounter Visit Diagnoses Diagnosis Chronic Kidney Disease Stage 4 Glomerula r Filtration Rate 15-29 (HCC) documented in this encounter Additional Health Concerns Assessment Noted Time PHQ-9 Depression Total Score: 4 11/28/2020 10:17 AM CD T documented as of this encounter Care Teams Procedure Tech Relationship Specialty Start Date End Date Elsewhere, Pcp PCP - General Family Medicine 07/29/17 [facility] - Laboratory Medicine 04/12/20 [place] [phone] documented as of this encounter
--- OUTSIDE RECORDS SUMMARY | 2022-05-17 18:41 | XMS_ITS | Encounter Summary ---
:1955 Author Organization [facility] Address [address] [place] [address] Care Team Providers Name Role Phone Elsewhere, Pcp Primary Care Provider Unavailable Reason for Referral Specialty Diagnoses / Procedures Referred By Contact Refer red To Contact Yolie Krishna M.D. [facility] Region [address] [place] [phone] Referral ID Status Reason Start Date Expiration Date Visits Requ ested Visits Authorized Encounter Details Date Type Department Care Team Description 02/06/[address] [facility] SEMN PCP [facility] Sa nikolay Krishna M.D. 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 [address] [place] [address] [phone] 05/23/2022 Clinical Admitting/Central Communication Scheduling 05/27/2022 Comprehensive Visit Orthopedic Surgery Markus Sams M.D., Ph.D. [address] [place] [address] [phone] 05/29/2022 Office Visit Otorhinolaryngology Dex Matta APRN, C.N.P., M.S.N. [address] [place] [address] [phone] 05/29/2022 Office Visit Otorhinolaryngology Nadeem Maradiaga P.A.-Arley., M.S. [address] [place] [phone] 05/31/2022 Appointment Radiology Guilherme Matt MPAS, Edmundo, M.S. [address] [place] [phone] 06/05/2022 Appointment Laboratory Medicine Angélica Granger P.A.-C. [address] [place] [phone] 06/19/2022 Appointment Laboratory Medicine Angélica Granger P.A.-C. [address] [place] [phone] 07/03/2022 Appointment Laboratory Medicine Angélica Granger P.A.-C. [address] [place] [phone] 07/17/2022 Appointment Laboratory Medicine Angélica Granger P.A.-C. [address] [place] [address] [phone] 07/31/2022 Appointment Laboratory Medicine Angélica Granger P.A.-C. [address] [place] [phone] 08/14/2022 Appointment Laboratory Medicine Angélica Granger P.A.-C. [address] [place] [phone] 08/28/2022 Appointment Laboratory Medicine Angélica Granger P.A.-C. [address] [place] [address] [phone] Scheduled Referrals Name Type Priority Associated Order Schedule Diagnoses Covid immunization Outpatient Referral Routine Ex pected: office visit Booster 021 (Approximate), Expires: 02/06/2022 documented as of this encounter Visit Diagnoses Not on filedocumented in this encounter Additional Health Concerns Assessment Noted Time PHQ-9 Depression Total Score: 4 11/28/2020 10:17 AM CD T documented as of this encounter Care Teams Senior Tax Manager Relationship Specialty Start Date End Date Elsewhere, Pcp PCP - General Family Medicine 07/29/17 [facility] - Laboratory Medicine 04/12/20 [place] [phone] documented as of this encounter
--- OUTSIDE RECORDS SUMMARY | 2022-05-17 18:41 | XMS_ITS | Encounter Summary ---
:1955 Author Organization [facility] Address [address] [place] [address] Care Team Providers Name Role Phone Elsewhere, Pcp Primary Care Provider Unavailable Reason for Visit Reason Comments Results Encounter Details Date Type Department Care Team Description 03/06/2021 Clinical Communication Division of Nephrology Ursula Parkinson, Results and [place]ension [place] [address] [place] [address] [address] [place] [phone] Social History Tobacco Use Types Packs/Day Years [...] many times do you More than three angéilca es a week 12/15/2021 talk on the [...] at Date Recorded Male 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 - 03/07/2021 9:18 AM CDT Noted thank you Telephone Encounter - Ursula Parkinson R.N. - 03/06/2021 11:40 AM CDT Images from the original note were not included. Mr. Singh was started on Aranesp 60 mcg monthly in December. Hemoglobin is 8.8 for February. documented in this encounter Plan of Treatment Upcoming Encounters Date Type Specialty Care Team Description 05/22/2022 Appointment Laboratory Medicine Angélica Granger P.A.-C. [address] [place] [phone] 05/23/2022 Clinical Admitting/Central Communication Scheduling 05/27/2022 Comprehensive Visit Orthopedic Surgery Markus Sams M.D., Ph.D. [address] [place] [address] [phone] 05/29/2022 Office Visit Otorhinolaryngology Dex Matta, RAMONA, C.N.P., M.S.N. [address] [place] [address] [phone] 05/29/2022 Office Visit Otorhinolaryngology Nadeem Maradiaga, Edmundo, M.S. [address] [place] [phone] 05/31/2022 Appointment Radiology Guilherme Matt, Edmundo MAGDALENO, M.S. [address] [place] [phone] 06/05/2022 Appointment Laboratory Medicine Angélica Granger P.A.-C. [address] [place] [phone] 06/19/2022 Appointment Laboratory Medicine Angélica Granger P.A.-C. [address] [place] [phone] 07/03/2022 Appointment Laboratory Medicine Angélica Granger P.A.-C. [address] [place] [phone] 07/17/2022 Appointment Laboratory Medicine Angélica Granger P.A.-C. [address] [place] [phone] 07/31/2022 Appointment Laboratory Medicine Angélica Granger P.A.-C. [address] [place] [phone] 08/14/2022 Appointment Laboratory Medicine Angélica Granger P.A.-C. [address] [place] [phone] 08/28/2022 Appointment Laboratory Medicine Angélica Granger P.A.-C. [address] [place] [phone] documented as of this encounter Visit Diagnoses Not on filedocumented in this encounter Additional Health Concerns Assessment Noted Time PHQ-9 Depression Total Score: 4 11/28/2020 10:17 AM CD T documented as of this encounter Care Teams Shoulder Pad Molder Relationship Specialty Start Date End Date Elsewhere, Pcp PCP - General Family Medicine 07/29/17 [facility] - Laboratory Medicine 04/12/[address] [address] documented as of this encounter
--- OUTSIDE RECORDS SUMMARY | 2022-05-17 18:41 | XMS_ITS | Encounter Summary ---
:1955 Author Organization [facility] Address [address] [place] [address] Care Team Providers Name Role Phone Elsewhere, Pcp Primary Care Provider Unavailable Encounter Details Date Type Department Care Team Description 03/12/2021 Hospital Encounter Department of [facility] Laboratory Medicine RAMONA Draper, C.N.PDemetrius, Dise ase Stage 4 in Louie HartNJuan Miguel Glomerular [place] [address] [facility] Filtration Rate [address] [address] [place], [place] 15-29 ([facility]ER[facility] [address] [place], [place] [phone] [address] (Work) [phone] Social History Tobacco Use Types Packs/Day Years [...] at Date Recorded Male 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 Medication Therapy Bander And Cellophaner Helper Machine Not Anticoagulant sodium chloride USE 4 ML VIA 0 08/30/2020 021 (NEBUSAL) 3 % nebulizer NEBULIZER TWICE solution DAILY Spiriva Respimat 2.5 INHALE 2 PUFFS BY 4 g 0 01/09/20 21 07/26/2021 mcg/actuation inhaler MOUTH DAILY tacrolimus (PROGRAF) Take 2 capsules (1 360 capsule 3 202007/16/2021 0.5 mg mg total) by mouth 2 capsuleIndications: (two) times a day. Transplant Liver (HCC), Medication Therapy Bander And Cellophaner Helper Machine Not Anticoagulant torsemide (DEMADEX) 10 Take 3 [...] Laboratory Medicine Angélica Granger P.A.-C. [address] [place] [address] 05/23/2022 Clinical Admitting/Central Communication Scheduling 05/27/2022 Comprehensive Visit Orthopedic Surgery Markus Sams M.D., Ph.D. [address] [place] [phone] 05/29/2022 Office Visit Otorhinolaryngology Dex Matta APRN, C.N.P., M.S.N. [address] [place] [phone] 05/29/2022 Office Visit Otorhinolaryngology Nadeem Maradiaga, PMaryanne., M.S. [address] [place] [phone] 05/31/2022 Appointment Radiology Guilherme Matt, RASTA, PMaryanne., M.S. [address] [place] [phone] 06/05/2022 Appointment Laboratory Medicine Angélica Granger P.A.-C. [address] [place] [phone] 06/19/2022 Appointment Laboratory Medicine Angélica Granger P.A.-C. [address] [place] [phone] 07/03/2022 Appointment Laboratory Medicine Angélica Granger P.A.-C. [address] [place] [phone] 07/17/2022 Appointment Laboratory Medicine Angélica Granger P.A.-C. [address] [place] [phone] 07/31/2022 Appointment Laboratory Medicine Angélica Granger P.A.-C. [address] [place] [phone] 08/14/2022 Appointment Laboratory Medicine Angélica Granger P.A.-C. [address] [place] [address] 08/28/2022 Appointment Laboratory Medicine Angélica Granger P.A.-C. [address] [place] [address] documented as of this encounter Procedures Procedure [...] Albumin, Random, Urine (03/12/2021 8:04 AM CDT) [facility] Method Time Signature Microalbumin 440.3 mg/L 03/12/2021 [...] LAB URINE [place] Performing Organization Address City/State/ZIP Code Phon e Number [facility]- [id number] [address] [place] [address] [address] (ABNORMAL) Urinalysis with Microscopic: Urine, Midstream [...] 8.0 03/12/2021 8:23 AM CDT CNFL Specific Bee 1.010 1.001 - 1.035 03/12/2021 8:23 AM [...] AM 03/12/20 8:04 Midstream) CDT AM CDT Janette Velasquez APRNNFabrice., D.N.P. LAB URINE [place] Performing Organization Address City/State/ZIP Code Phon e Number [facility]- [address] [place] [address] [place] [address] [place] [address] System [address] documented in this encounter Visit Diagnoses Diagnosis Chronic Kidney Disease Stage 4 Glomerula r Filtration Rate 15-29 (HCC) documented in this encounter Additional Health Concerns Assessment Noted Time PHQ-9 Depression Total Score: 4 11/28/2020 10:17 AM CD T documented as of this encounter Care Teams Radio Aerial Installer Relationship Specialty Start Date End Date Elsewhere, Pcp PCP - General Family Medicine 07/29/17 [facility] - Laboratory Medicine 04/12/20 [place] [phone] documented as of this encounter
--- OUTSIDE RECORDS SUMMARY | 2022-05-17 18:41 | XMS_ITS | Encounter Summary ---
:1955 Author Organization [facility] Address [address] [place] [address] Care Team Providers Name Role Phone Elsewhere, Pcp Primary Care Provider Unavailable Encounter Details Date Type Department Care Team Description 03/07/2021 Orders Only Curt Garces Javier, Gail Griffiths Kidney Disease; Center for M.D. 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 [address] [place] [phone] 05/23/2022 Clinical Admitting/Central Communication Scheduling 05/27/2022 Comprehensive Visit Orthopedic Surgery Markus Sams M.D., Ph.D. [address] [place] [phone] 05/29/2022 Office Visit Otorhinolaryngology Dex Matta, MEDICAL ADMINISTRATIVE ASSISTANT, C.N.P., M.S.N. [address] [place] [phone] 05/29/2022 Office Visit Otorhinolaryngology Nadeem Maradiaga, PEdgar.-Arley., M.S. [address] [place] [phone] 05/31/2022 Appointment Radiology Guilherme Matt MPAS, Jennifer., M.S. [address] [place] [phone] 06/05/2022 Appointment Laboratory Medicine Angélica Granger P.A.-C. [address] [place] [phone] 06/19/2022 Appointment Laboratory Medicine Angélica Granger P.A.-C. [address] [place] [phone] 07/03/2022 Appointment Laboratory Medicine Angélica Granger P.A.-C. [address] [place] [phone] 07/17/2022 Appointment Laboratory Medicine Angélica Granger P.A.-C. [address] [place] [phone] 07/31/2022 Appointment Laboratory Medicine Angélica Granger P.A.-C. [address] [place] [phone] 08/14/2022 Appointment Laboratory Medicine Angélica Granger P.A.-C. [address] [place] [phone] 08/28/2022 Appointment Laboratory Medicine Angélica Granger P.A.-C. [address] [place] [phone] documented as of this encounter Visit Diagnoses Diagnosis Chronic Kidney Disease Pretransplant Recipient Evaluation Exam documented in this encounter Additional Health Concerns Assessment Noted Time PHQ-9 Depression Total Score: 4 11/28/2020 10:17 AM CD T documented as of this encounter Care Teams Automotive Engineer Relationship Specialty Start Date End Date Elsewhere, Pcp PCP - General Family Medicine 07/29/17 [facility] - Laboratory Medicine 04/12/[address] [address] documented as of this encounter
--- OUTSIDE RECORDS SUMMARY | 2022-05-17 18:41 | XMS_ITS | Encounter Summary ---
:1955 Author Organization [facility] Address [address] [place] [address] Care Team Providers Name Role Phone Elsewhere, Pcp Primary Care Provider Unavailable Encounter Details Date Type Department Care Team Description 03/13/2021 Clinical Communication Division of Nephrology Wellerri tter, and Hypertension in [place]admini Hernandez APRNCr[place], [place] C.N.P., D.N.P. 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 [address] [place] [phone] 05/23/2022 Clinical Admitting/Central Communication Scheduling 05/27/2022 Comprehensive Visit Orthopedic Surgery Markus Sams M.D., Ph.D. [address] [place] [phone] 05/29/2022 Office Visit Otorhinolaryngology Dex Matta APRN, C.N.P., M.S.N. [address] [place] [phone] 05/29/2022 Office Visit Otorhinolaryngology Nadeem Maradiaga, P.A.-C., M.S. [address] [place] [address] [phone] 05/31/2022 Appointment Radiology Guilherme Matt MPAS, P.A.-C., M.S. [address] [place] [phone] 06/05/2022 Appointment Laboratory Medicine Angélica Granger P.A.-C. [address] [place] [phone] 06/19/2022 Appointment Laboratory Medicine Angélica Granger P.A.-C. [address] [place] [phone] 07/03/2022 Appointment Laboratory Medicine Angélica Granger P.A.-C. [address] [place] [phone] 07/17/2022 Appointment Laboratory Medicine Angélica Granger P.A.-C. [address] [place] [phone] 07/31/2022 Appointment Laboratory Medicine Angélica Granger P.A.-C. [address] [place] [phone] 08/14/2022 Appointment Laboratory Medicine Angélica Granger P.A.-C. [address] [place] [phone] 08/28/2022 Appointment Laboratory Medicine Angélica Granger P.A.-C. [address] [place] [phone] documented as of this encounter Visit Diagnoses Not on filedocumented in this encounter Additional Health Concerns Assessment Noted Time PHQ-9 Depression Total Score: 4 11/28/2020 10:17 AM CD T documented as of this encounter Care Teams Front Desk Clerk Relationship Specialty Start Date End Date Elsewhere, Pcp PCP - General Family Medicine 07/29/17 [facility] - Laboratory Medicine 04/12/20 [place] [phone] documented as of this encounter
--- OUTSIDE RECORDS SUMMARY | 2022-05-17 18:41 | XMS_ITS | Encounter Summary ---
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 [address] [place] [phone] 05/23/2022 Clinical Admitting/Central Communication Scheduling 05/27/2022 Comprehensive Visit Orthopedic Surgery Markus Sams M.D., Ph.D. [address] [place] [phone] 05/29/2022 Office Visit Otorhinolaryngology Dex Matta APRN, C.N.P., M.S.N. [address] [place] [phone] 05/29/2022 Office Visit Otorhinolaryngology Nadeem Maradiaga, P.A.-C., M.S. [address] [place] [phone] 05/31/2022 Appointment Radiology Guilherme Matt MPAS, P.Murtaza.-Arley., M.S. [address] [place] [phone] 06/05/2022 Appointment Laboratory Medicine Angélica Granger P.A.-C. [address] [place] [phone] 06/19/2022 Appointment Laboratory Medicine Angélica Granger P.A.-C. [address] [place] [phone] 07/03/2022 Appointment Laboratory Medicine Angélica Granger P.A.-C. [address] [place] [phone] 07/17/2022 Appointment Laboratory Medicine Angélica Granger P.A.-C. [address] [place] [phone] 07/31/2022 Appointment Laboratory Medicine Angélica Granger P.A.-C. [address] [place] [phone] 08/14/2022 Appointment Laboratory Medicine Angélica Granger P.A.-C. [address] [place] [phone] 08/28/2022 Appointment Laboratory Medicine Angélica Granger P.A.-C. [address] [place] [phone] documented as of this encounter Visit Diagnoses Not on filedocumented in this encounter Additional Health Concerns Assessment Noted Time PHQ-9 Depression Total Score: 4 11/28/2020 10:17 AM CD T documented as of this encounter Care Teams Wood Coater Relationship Specialty Start Date End Date Elsewhere, Pcp PCP - General Family Medicine 07/29/17 [facility] - Laboratory Medicine 04/12/20 [place] [phone] documented as of this encounter
--- OUTSIDE RECORDS SUMMARY | 2022-05-17 18:41 | XMS_ITS | Encounter Summary ---
:1955 Author Organization [facility] Address [address] [place] [address] Care Team Providers Name Role Phone Elsewhere, Pcp Primary Care Provider Unavailable Reason for Visit Reason Comments Med Refill Encounter Details Date Type Department Care Team Description 03/01/2021 Refill Division of Nephrology and Joce Bailey Med Refill Hypertension in [place] [id number] 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 [address] [place] [phone] 05/23/2022 Clinical Admitting/Central Communication Scheduling 05/27/2022 Comprehensive Visit Orthopedic Surgery Markus Sams M.D., Ph.D. [address] [place] [phone] 05/29/2022 Office Visit Otorhinolaryngology Dex Matta APRN, C.N.P., M.S.N. [address] [place] [phone] 05/29/2022 Office Visit Otorhinolaryngology Nadeem Maradiaga, P.Murtaza.-Arley., M.S. [address] [place] [address] [phone] 05/31/2022 Appointment Radiology Guilherme Matt MPAS, Jennifer., M.S. [address] [place] [phone] 06/05/2022 Appointment Laboratory Medicine Angélica Granger P.A.-C. [address] [place] [phone] 06/19/2022 Appointment Laboratory Medicine Angélica Granger P.A.-C. [address] [place] [phone] 07/03/2022 Appointment Laboratory Medicine Angélica Granger P.A.-C. [address] [place] [phone] 07/17/2022 Appointment Laboratory Medicine Angélica Granger P.A.-C. [address] [place] [phone] 07/31/2022 Appointment Laboratory Medicine Angélica Granger P.A.-C. [address] [place] [phone] 08/14/2022 Appointment Laboratory Medicine Angélica Granger P.A.-C. [address] [place] [phone] 08/28/2022 Appointment Laboratory Medicine Angélica Granger P.A.-C. [address] [place] [phone] documented as of this encounter Visit Diagnoses Diagnosis Hypertension Essential Primary documented in this encounter Additional Health Concerns Assessment Noted Time PHQ-9 Depression Total Score: 4 11/28/2020 10:17 AM CD T documented as of this encounter Care Teams Special Education Professor Relationship Specialty Start Date End Date Elsewhere, Pcp PCP - General Family Medicine 07/29/17 [facility] - Laboratory Medicine 04/12/[address] [address] documented as of this encounter
--- OUTSIDE RECORDS SUMMARY | 2022-05-17 18:41 | XMS_ITS | Encounter Summary ---
:1955 Author Organization [facility] Address [address] [place] [address] Care Team Providers Name Role Phone Elsewhere, Pcp Primary Care Provider Unavailable Reason for Visit Reason Comments External Lab Entry 02/28/2021 Encounter Details Date Type Department Care Team Description 03/01/2021 Clinical Curt Garces Transplant, Supervisor Of Operations al Lab Entry Communication Center for Coordinator, (02/28/2021) Transplantation and R.N. 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 [address] [place] [phone] 05/23/2022 Clinical Admitting/Central Communication Scheduling 05/27/2022 Comprehensive Visit Orthopedic Surgery Markus Sams M.D., Ph.D. [address] [place] [phone] 05/29/2022 Office Visit Otorhinolaryngology Dex Matta APRN, C.N.P., M.S.N. [address] [place] [phone] 05/29/2022 Office Visit Otorhinolaryngology Nadeem Maradiaga, P.A.-C., M.S. [address] [place] [phone] 05/31/2022 Appointment Radiology Guilherme Matt MPAS, P.Murtaza.-Arley., M.S. [address] [place] [phone] 06/05/2022 Appointment Laboratory Medicine Angélica Granger P.A.-C. [address] [place] [phone] 06/19/2022 Appointment Laboratory Medicine Angélica Granger P.A.-C. [address] [place] [phone] 07/03/2022 Appointment Laboratory Medicine Angélica Granger P.A.-C. [address] [place] [phone] 07/17/2022 Appointment Laboratory Medicine Angélica Granger P.A.-C. [address] [place] [phone] 07/31/2022 Appointment Laboratory Medicine Angélica Granger P.A.-C. [address] [place] [phone] 08/14/2022 Appointment Laboratory Medicine Angélica Granger P.A.-C. [address] [place] [phone] 08/28/2022 Appointment Laboratory Medicine Angélica Granger P.A.-C. [address] [place] [phone] documented as of this encounter Procedures Procedure [...] of this encounter Care Teams Real Estate Professional Relationship Specialty Start Date End Date Elsewhere, Pcp PCP - General Family Medicine 07/29/17 [facility] - Laboratory Medicine 04/12/[address] [address] documented as of this encounter
--- OUTSIDE RECORDS SUMMARY | 2022-05-17 18:41 | XMS_ITS | Encounter Summary ---
:1955 Author Organization [facility] Address [address] [place] [address] Care Team Providers Name Role Phone Elsewhere, Pcp Primary Care Provider Unavailable Reason for Visit Appointment Request (Routine) - Closed Specialty Diagnoses / Procedures Referred By Contact Refer red To Contact Nephrology and Hypertension Referral ID Status Reason Start Date Expiration Date Visits Requ ested Visits Authorized [id number] Closed 03/07/2021 03/07/2022 1 1 Encounter Details Date Type Department Care Team Description 03/14/2021 External Division of [facility] Chronic Kidney Disease Stage 4 Glomerular Filtration Rate 15-29 (HCC) (Primary Dx); Outreach Nephrology and Padmini, Hypertension And Chronic Kidney Disease Stage 4 (HCC); Hypertension in [facility], Anemia; [place], [place] C.N.P., Hyperparathyroidism Secondar y (HCC) [address] [facility] [place] [address] Social History Tobacco Use Types Packs/Day Years [...] Date Recorded Male 05/16/2020 4:27 PM CLINICAL MASSAGE THERAPIST documented as of this encounter Last Filed [...] PM CDT Subjective: Chief Complaint/Reason for Visit [place] CKD visit History of Present Illness: Mr. [...] this time. Follow-up: One month labs at [facility] and 3 months CKD in [place]. documented in this encounter Plan of Treatment Upcoming Encounters Date Type Specialty Care Team Description 05/22/2022 Appointment Laboratory Medicine Angélica Granger P.A.-C. [address] [place] [phone] 05/23/2022 Clinical Admitting/Central Communication Scheduling 05/27/2022 Comprehensive Visit Orthopedic Surgery Markus Sams M.D., Ph.D. [address] [place] [address] [phone] 05/29/2022 Office Visit Otorhinolaryngology Dex Matta APRN, C.N.P., M.S.N. [address] [place] [address] [phone] 05/29/2022 Office Visit Otorhinolaryngology Nadeem Maradiaga, P.A.-C., M.S. [address] [place] [phone] 05/31/2022 Appointment Radiology Guilherme Matt MPAS, P.Murtaza.-Arley., M.S. [address] [place] [phone] 06/05/2022 Appointment Laboratory Medicine Angélica Granger P.A.-C. [address] [place] [phone] 06/19/2022 Appointment Laboratory Medicine Angélica Granger P.A.-C. [address] [place] [phone] 07/03/2022 Appointment Laboratory Medicine Angélica Granger P.A.-C. [address] [place] [phone] 07/17/2022 Appointment Laboratory Medicine Angélica Granger P.A.-C. [address] [place] [phone] 07/31/2022 Appointment Laboratory Medicine Angélica Granger P.A.-C. [address] [place] [phone] 08/14/2022 Appointment Laboratory Medicine Angélica Granger P.A.-C. [address] [place] [phone] 08/28/2022 Appointment Laboratory Medicine Angélica Granger P.A.-C. [address] [place] [address] [phone] documented as of this encounter Results (ABNORMAL) Albumin, Random, Urine (05/23/2021 8:34 AM CLINICAL MASSAGE THERAPIST) [facility] Method Time Signature Microalbumin 357.9 mg/L 05/23/2021 CNFL 10:00 AM CLINICAL MASSAGE THERAPIST Creatinine 78 mg/dL 05/23/2021 CNFL 10:00 AM CLINICAL MASSAGE THERAPIST Albumin/Creatinin 459 (H) <17 mg/g 05/23/2021 CNFL e Ratio 10:00 AM CLINICAL MASSAGE THERAPIST Specimen Anatomical Collection Method Collection Time Receive d Time (Source) Location / / Volume Laterality Urine (Urine, 05/23/2021 8:34 AM 05/23/20 9:39 Clean Catch) CLINICAL MASSAGE THERAPIST AM CLINICAL MASSAGE THERAPIST Padmini Barry APRN, C.NDemetriusP., D.N.P. LAB URINE OR DERABLES Performing Organization Address City/State/ZIP Code Phon e Number [facility]- [address] [place] [address] [place] [address] [address] (ABNORMAL) Urinalysis with Microscopic: Urine, Midstream (05/23/2021 8:34 AM CLINICAL MASSAGE THERAPIST) Analysis Performed At Patho logist Time Signature Source Urine, Urine, 05/23/2021 CNFL Midstream 9:39 AM CLINICAL MASSAGE THERAPIST Clarity Clear Clear 05/23/2021 CNFL 9:50 AM CLINICAL MASSAGE THERAPIST Color Yellow 05/23/2021 CNFL 9:50 AM CLINICAL MASSAGE THERAPIST Comment: ----REFERENCE VALUE---- Colorless Yellow Bhakti Blood Small (A) Negative 05/23/2021 9:50 AM CLINICAL MASSAGE THERAPIST CNFL Nitrite Negative Negative 05/23/2021 9:50 AM CLINICAL MASSAGE THERAPIST CNFL Leukocyte Esterase Negative Negative 05/23/2021 9:50 AM CS T CNFL Protein 100 (A) mg/dL 05/23/2021 9:50 AM CLINICAL MASSAGE THERAPIST CNFL Comment: ----REFERENCE VALUE---- Negative Trace Glucose Negative Negative mg/dL 05/23/2021 9:50 AM CLINICAL MASSAGE THERAPIST CN FL Ketones, QI(U) Negative Negative mg/dL 05/23/2021 9:[address] CNFL Bilirubin Negative Negative 05/23/2021 9:50 AM CLINICAL MASSAGE THERAPIST CNFL pH 6.5 5.0 - 8.0 05/23/2021 9:50 AM CLINICAL MASSAGE THERAPIST CNFL Specific Stephenson 1.015 1.001 - 1.035 05/23/2021 9:50 AM CLINICAL MASSAGE THERAPIST CNFL Urobilinogen 0.2 0.2 - 1.0 mg/dL 05/23/2021 9:50 AM CS T CNFL White Blood Cells Occ-3 /hpf 05/23/2021 10:17 AM CS T CNFL Comment: ----REFERENCE VALUE---- Males: 0-3 Females: 0-10 Unknown: 0-10 Red Blood Cells Occ-2 0 - 2 /hpf 05/23/2021 10:17 AM CLINICAL MASSAGE THERAPIST CNFL Specimen Anatomical Collection Method Collection Time Receive d Time (Source) Location / / Volume Laterality Urine (Urine, 05/23/2021 8:34 AM 05/23/20 9:39 Midstream) CLINICAL MASSAGE THERAPIST AM CLINICAL MASSAGE THERAPIST Janette Banks APRNN.P., D.N.P. LAB URINE OR DERABLES Performing Organization Address City/[facility] Phon e Number [facility]- [address] [place] [address] [place] [address] System in [place] [address] [address] Parathyroid Hormone (PTH) (05/23/2021 8:34 AM CLINICAL MASSAGE THERAPIST) athologist Signature Parathyroid 53 15 - 65 05/23/2021 RDWG Hormone (PTH), S pg/mL 1:21 PM CLINICAL MASSAGE THERAPIST Comment: Biotin has been identified by the [...] Blood (Blood, 05/23/2021 8:34 AM 05/23/20 Venous) CLINICAL MASSAGE THERAPIST 12:48 PM CLINICAL MASSAGE THERAPIST Arley Banks APRN.N.P., D.N.P. LAB BLOOD AD D-ON Performing Organization Address City/[facility] Phon e Number [facility]- [address] [place], [place] [address] [place] [address] System in [place] [address] (ABNORMAL) Renal Function Panel (05/23/2021 8:34 AM CLINICAL MASSAGE THERAPIST) Analysis Performed At Patho logist Time Signature Potassium, P 4.1 3.6 - 5.2 05/23/2021 CNFL mmol/L 9:01 AM CLINICAL MASSAGE THERAPIST Sodium, P 128 (L) 135 - 145 05/23/2021 CNFL mmol/L 9:01 AM CLINICAL MASSAGE THERAPIST Chloride, P 94 (L) 98 - 107 05/23/2021 CNFL mmol/L 9:01 AM CLINICAL MASSAGE THERAPIST Bicarbonate, P 21 (L) 22 - 29 05/23/2021 CNFL mmol/L 9:01 AM CLINICAL MASSAGE THERAPIST Anion Gap, P 13 7 - 15 05/23/2021 CNFL 9:01 AM CLINICAL MASSAGE THERAPIST BUN (Blood Urea 55 (H) 8 - 24 05/23/2021 CNFL Nitrogen), P mg/dL 9:01 AM CLINICAL MASSAGE THERAPIST Creatinine 4.25 (H) 0.74 - 05/23/2021 CNFL 1.35 mg/dL 9:01 AM CLINICAL MASSAGE THERAPIST eGFR-Black/Afri 16 (L) >=60 05/23/2021 CNFL can [place] mL/min/BSA 9:01 AM CLINICAL MASSAGE THERAPIST Comment: ----ADDITIONAL INFORMATION---- Estimated GFR calculated using the 2009 CKD_EPI creatinine equation. eGFR Non-Black/ <15 (L) >=60 mL/min/BSA 05/23/2021 9:01 AM CLINICAL MASSAGE THERAPIST CNFL [place] Comment: ----ADDITIONAL INFORMATION---- Estimated GFR calculated using the 2009 CKD_EPI creatinine equation. Calcium, Total, P 8.3 (L) 8.8 - 10.2 mg/dL 05/23/2021 9:01 AM CLINICAL MASSAGE THERAPIST CNFL Glucose, P 119 70 - 140 mg/dL 05/23/2021 9:01 AM CLINICAL MASSAGE THERAPIST C NFL Albumin, P 3.6 3.5 - 5.0 g/dL 05/23/2021 9:01 AM CLINICAL MASSAGE THERAPIST C NFL Phosphorus (Inorganic), P 3.8 2.5 - 4.5 mg/dL 05/23/20 9:01 AM CLINICAL MASSAGE THERAPIST CNFL Specimen Anatomical Collection Method Collection Time Receive d Time (Source) Location / / Volume Laterality Blood (Blood, 05/23/2021 8:34 AM 05/23/20 8:37 Venous) CLINICAL MASSAGE THERAPIST AM CLINICAL MASSAGE THERAPIST Padmini Barry APRN, C.N.P., D.N.P. LAB BLOOD AD D-ON Performing Organization Address City/State/ZIP Code Phon e Number [facility]- [address] [place] [address] [place] [address] System in [place] [address] (ABNORMAL) CBC without Differential (05/23/2021 8:34 AM CLINICAL MASSAGE THERAPIST) [facility] gist Method Time Signature Hemoglobin 6.7 (L) 13.2 - 05/23/2021 CNFL 16.6 g/dL 8:47 AM CLINICAL MASSAGE THERAPIST Hematocrit 22.2 (L) 38.3 - 05/23/2021 CNFL 48.6 % 8:47 AM CLINICAL MASSAGE THERAPIST Erythrocytes 2.32 (L) 4.35 - 05/23/2021 CNFL 5.65 8:47 AM CLINICAL MASSAGE THERAPIST x10(12)/L MCV 95.7 78.2 - 05/23/2021 CNFL 97.9 fL 8:47 AM CLINICAL MASSAGE THERAPIST RBC Distrib Width 13.4 11.8 - 05/23/2021 CNFL 14.5 % 8:47 AM CLINICAL MASSAGE THERAPIST Platelet Count 200 135 - 317 05/23/2021 CNFL x10(9)/L 8:47 AM CLINICAL MASSAGE THERAPIST Leukocytes 3.4 3.4 - 9.6 05/23/2021 CNFL x10(9)/L 8:47 AM CLINICAL MASSAGE THERAPIST Specimen Anatomical Collection Method Collection Time Receive d Time (Source) Location / / Volume Laterality Blood (Blood, 05/23/2021 8:34 AM 05/23/20 21 8:37 Venous) CLINICAL MASSAGE THERAPIST AM CLINICAL MASSAGE THERAPIST Padmini Barry APRN C.N.P., D.N.P. LAB BLOOD AD D-ON Performing Organization Address City/State/ZIP Code Phon e Number [facility]- [address] [place] [address] [place] [address] [place] [address] System in [place] [address] [address] documented in this encounter Visit Diagnoses Diagnosis Chronic Kidney Disease Stage 4 Glomerula r Filtration Rate 15-29 (HCC) - Primary Hypertension And Chronic Kidney Disease Stage 4 (HCC) Anemia Hyperparathyroidism Secondary (HCC) documented in this encounter Additional Health Concerns Assessment Noted Time PHQ-9 Depression Total Score: 4 11/28/2020 10:17 AM CD T documented as of this encounter Care Teams Power Cutting Machine Operator Relationship Specialty Start Date End Date Elsewhere, Pcp PCP - General Family Medicine 07/29/17 [facility] - Laboratory Medicine 04/12/20 [place] [address] documented as of this encounter
--- OUTSIDE RECORDS SUMMARY | 2022-05-17 18:41 | XMS_ITS | Encounter Summary ---
:1955 Author Organization [facility] Address [address] [place] [address] Care Team Providers Name Role Phone Elsewhere, Pcp Primary Care Provider Unavailable Reason for Visit Reason Comments needs torsemide RX Encounter Details Date Type Department Care Team Description 02/22/2021 Clinical Division of d'[place], needs torsemide RX Communication Nephrology and Eve Draper Hypertension in [facility] C.N.P.[place], [place] D.N.P. 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 Preferred Communication Method: {patient mobile [phone]) [id number] [place] [address] [address] [facility] 3 & [facility] [address] [facility] [phone] ?? Additional instructions: documented in this encounter Plan of Treatment Upcoming Encounters Date Type Specialty Care Team Description 05/22/2022 Appointment Laboratory Medicine Angélica Granger P.A.-C. [address] [place] [phone] 05/23/2022 Clinical Admitting/Central Communication Scheduling 05/27/2022 Comprehensive Visit Orthopedic Surgery Markus Sams M.D., Ph.D. [address] [place] [phone] 05/29/2022 Office Visit Otorhinolaryngology Dex Matta APRN, C.N.P., M.S.N. [address] [place] [phone] 05/29/2022 Office Visit Otorhinolaryngology Nadeem Maradiaga, Jennifer., M.S. [address] [place] [phone] 05/31/2022 Appointment Radiology Guilherme Matt, RASTA, Edmundo, M.S. [address] [place] [phone] 06/05/2022 Appointment Laboratory Medicine Angélica Granger P.A.-C. [address] [place] [phone] 06/19/2022 Appointment Laboratory Medicine Angélica Granger P.A.-C. [address] [place] [phone] 07/03/2022 Appointment Laboratory Medicine Angéliac Granger P.A.-C. [address] [place] [phone] 07/17/2022 Appointment Laboratory Medicine Angélica Granger P.A.-C. [address] [place] [phone] 07/31/2022 Appointment Laboratory Medicine Angélica Granger P.A.-C. [address] [place] [phone] 08/14/2022 Appointment Laboratory Medicine Angélica Granger P.A.-C. [address] [place] [phone] 08/28/2022 Appointment Laboratory Medicine Angélica Granger P.A.-C. [address] [place] [phone] documented as of this encounter Visit Diagnoses Not on filedocumented in this encounter Additional Health Concerns Assessment Noted Time PHQ-9 Depression Total Score: 4 11/28/2020 10:17 AM CD T documented as of this encounter Care Teams First Crusher Relationship Specialty Start Date End Date Elsewhere, Pcp PCP - General Family Medicine 07/29/17 [facility] - Laboratory Medicine 04/12/[address] [address] documented as of this encounter
--- OUTSIDE RECORDS SUMMARY | 2022-05-17 18:41 | XMS_ITS | Encounter Summary ---
:1955 Author Organization [facility] Address [address] [place] [address] Care Team Providers Name Role Phone Elsewhere, Pcp Primary Care Provider Unavailable Encounter Details Date Type Department Care Team Description 02/09/2021 Immunization Department of Family Medicine, 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 [address] [place] [phone] 05/23/2022 Clinical Admitting/Central Communication Scheduling 05/27/2022 Comprehensive Visit Orthopedic Surgery Markus Sams M.D., Ph.D. [address] [place] [address] [phone] 05/29/2022 Office Visit Otorhinolaryngology Dex Matta APRN, C.N.P., M.S.N. [address] [place] [address] [phone] 05/29/2022 Office Visit Otorhinolaryngology Nadeem Maradiaga, P.A.-C., M.S. [address] [place] [address] [phone] 05/31/2022 Appointment Radiology Guilherme Matt MPAS, P.Murtaza.-Arley., M.S. [address] [place] [phone] 06/05/2022 Appointment Laboratory Medicine Angélica Granger P.A.-C. [address] [place] [phone] 06/19/2022 Appointment Laboratory Medicine Angélica Granger P.A.-C. [address] [place] [address] [phone] 07/03/2022 Appointment Laboratory Medicine Angélica Granger P.A.-C. [address] [place] [address] [phone] 07/17/2022 Appointment Laboratory Medicine Angélica Granger P.A.-C. [address] [place] [phone] 07/31/2022 Appointment Laboratory Medicine Angélica Granger P.A.-C. [address] [place] [address] [phone] 08/14/2022 Appointment Laboratory Medicine Angélica Granger P.A.-C. [address] [place] [phone] 08/28/2022 Appointment Laboratory Medicine Angélica Granger P.A.-C. [address] [place] [address] [phone] documented as of this encounter Visit Diagnoses Not on filedocumented in this encounter Additional Health Concerns Assessment Noted Time PHQ-9 Depression Total Score: 4 11/28/2020 10:17 AM CD T documented as of this encounter Care Teams Procedures Tech Relationship Specialty Start Date End Date Elsewhere, Pcp PCP - General Family Medicine 07/29/17 [facility] - Laboratory Medicine 04/12/[address] [address] documented as of this encounter
--- OUTSIDE RECORDS SUMMARY | 2022-05-17 18:41 | XMS_ITS | Encounter Summary ---
:1955 Author Organization [facility] Address [address] [place] [address] Care Team Providers Name Role Phone Elsewhere, Pcp Primary Care Provider Unavailable Encounter Details Date Type Department Care Team Description 03/07/2021 Orders Only Division of Nephrology Eve Garcia Chronic Kidney and Hypertension in [place], ASSISTANT PRODUCE MANAGER, C.N.P., Dise ase Stage 4 [place], [place] D.N.P. 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 [address] [place] [phone] 05/23/2022 Clinical Admitting/Central Communication Scheduling 05/27/2022 Comprehensive Visit Orthopedic Surgery Markus Sams M.D., Ph.D. [address] [place] [phone] 05/29/2022 Office Visit Otorhinolaryngology Dex Matta APRN, C.N.P., M.S.N. [address] [place] [phone] 05/29/2022 Office Visit Otorhinolaryngology Nadeem Maradiaga, P.A.-C., M.S. [address] [place] [address] [phone] 05/31/2022 Appointment Radiology Guilherme Matt MPAS, P.Murtaza.Marie., M.S. [address] [place] [phone] 06/05/2022 Appointment Laboratory Medicine Angélica Granger P.A.-C. [address] [place] [phone] 06/19/2022 Appointment Laboratory Medicine Angélica Granger P.A.-C. [address] [place] [phone] 07/03/2022 Appointment Laboratory Medicine Angélica Granger P.A.-C. [address] [place] [phone] 07/17/2022 Appointment Laboratory Medicine Angélica Granger P.A.-C. [address] [place] [address] [phone] 07/31/2022 Appointment Laboratory Medicine Angélica Granger P.A.-C. [address] [place] [address] [phone] 08/14/2022 Appointment Laboratory Medicine Angélica Granger P.A.-C. [address] [place] [phone] 08/28/2022 Appointment Laboratory Medicine Angélica Granger P.A.-C. [address] [place] [phone] documented as of this encounter Results (ABNORMAL) Albumin, Random, Urine (03/12/2021 8:04 AM CDT) [facility] Time Signature Microalbumin 440.3 mg/L 03/12/2021 CNFL 9:17 AM CDT Creatinine 57 mg/dL 03/12/2021 CNFL 8:55 AM CDT Albumin/Creatinin 772 (H) <17 mg/g 03/12/2021 CNFL e Ratio 9:17 AM CDT Specimen Anatomical Collection Method Collection Time Receive d Time (Source) Location / / Volume Laterality Urine (Urine, 03/12/2021 8:04 AM 03/12/20 8:04 Clean Catch) CDT AM CDT Arley Velasquez APRN.N.PDemetrius, D.N.PDemetrius LAB URINE PIPER ARNOLD Performing Organization Address City/State/ZIP Code Phon e Number [address] [address] [place] [address] (ABNORMAL) Urinalysis with Microscopic: Urine, Midstream [...] 8.0 03/12/2021 8:23 AM CDT CNFL Specific [place] 1.010 1.001 - 1.035 03/12/2021 8:23 AM [...] Garcia APRN, C.N.P., D.N.P. LAB URINE ORDE RABCARLOS ALBERTO Performing Organization Address [facility] Phon e Number [facility]- [address] [place] [address] [place] [address] [place] [address] System in [place] [address] [address] Ferritin (03/12/2021 7:52 AM CDT) athologist Signature Ferritin, S [phone] - [...] LAB BLOOD ADD- ON Performing Organization Address City/[facility]/ZIP Code Phon e Number [facility]- [address] [place], [place] [address] [place] [address] System in [place] [address] [address] (ABNORMAL) Iron and Total Iron-Binding Capacity (03/12/2021 7:52 AM CDT) athologist [facility] Iron 72 50 - 150 03/12/2021 RDWG [...] Phon e Number [facility]- [facility] [place] [address] [place] [address] System in [place] [address] [address] (ABNORMAL) Cystatin C with Estimated GFR, S (03/12/2021 7:52 AM CDT) [facility] e[facility] by 9 (L) >60 03/13/2021 DTL [...] AM 03/13/20 7:49 Venous) CDT AM CDT Arley Velasquez APRN.N.PDemetrius, D.N.P. LAB BLOOD ADD- ON Performing Organization Address City/[facility]/ZIP [facility] Phon e Number [facility] - 200 [place], [place] [address] [facility] [place] [address] Laboratories-[facility] 200 [facility] (ABNORMAL) Parathyroid Hormone (PTH) (03/12/2021 7:52 AM [...] 1:34 Venous) CDT PM CDT Arley Velasquez APRN.N.P., D.N.P. LAB BLOOD ADD- ON Performing Organization Address City/[facility] Phon e Number [facility]- [address] [place], [place] [address] [place] [address] System in [place] [address] (ABNORMAL) Renal Function Panel [...] eGFR-Black/Afri 21 (L) >=60 03/12/2021 CNFL can [place] African mL/min/BSA 8:47 AM CDT Comment: ----ADDITIONAL INFORMATION---- Estimated GFR calculated using the 2009 CKD_EPI creatinine equation. eGFR Non-Black/ 18 (L) >=60 mL/min/BSA 03/12/2021 8:47 AM CDT CNFL [place] African Comment: ----ADDITIONAL [...] Phon e Number [facility]- [address] [place] [address] [place] [address] [place] [address] (ABNORMAL) CBC without Differential (03/12/2021 7:52 AM CDT) [facility] gist Method Time Signature Hemoglobin 7.9 [...] 7:54 Venous) CDT AM CDT Eve Garcia APRN, C.N.P., D.N.P. LAB BLOOD ADD- ON Performing Organization Address City/State/ZIP Code Phon e Number [facility]- [address] [place], [place] [address]vd [place] [address] [place] [address] System [address] documented in this encounter Visit Diagnoses Diagnosis Chronic Kidney Disease Stage 4 Glomerula r Filtration Rate 15-29 (HCC) - Primary documented in this encounter Additional Health Concerns Assessment Noted Time PHQ-9 Depression Total Score: 4 11/28/2020 10:17 AM CD T documented as of this encounter Care Teams Coagulating Bath Operator Relationship Specialty Start Date End Date Elsewhere, Pcp PCP - General Family Medicine 07/29/17 [facility] - Laboratory Medicine 04/12/20 [place] [address] documented as of this encounter
--- OUTSIDE RECORDS SUMMARY | 2022-05-17 18:42 | XMS_ITS | Encounter Summary ---
:1955 [facility] Address [address] [place] [address] Care Team Providers Name Role Phone Elsewhere, Pcp Primary Care Provider Unavailable Encounter Details Date Type Department Care Team Description 01/15/2021 Clinical Communication Division of Nephrology Wellerri tter, and Hypertension in [place]admin[place] Hernandez [place], [place] C.N.P., D.N.P. 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 Fx: [phone] Leeanne documented in this encounter Plan of Treatment Upcoming Encounters Date Type Specialty Care Team Description 05/22/2022 Appointment Laboratory Medicine Angélica Granger P.A.-C. [address] [place] [phone] 05/23/2022 Clinical Admitting/Central Communication Scheduling 05/27/2022 Comprehensive Visit Orthopedic Surgery Markus Sams M.D., Ph.D. [address] [place] [phone] 05/29/2022 Office Visit Otorhinolaryngology Dex Matta APRN, C.N.P., M.S.N. [address] [place] [phone] 05/29/2022 Office Visit Otorhinolaryngology Nadeem Maradiaga, P.A.-C., M.S. [address] [place] [phone] 05/31/2022 Appointment Radiology Guilherme Matt MPAS, Edmundo, M.S. [address] [place] [address] [phone] 06/05/2022 Appointment Laboratory Medicine Angélica Granger P.A.-C. [address] [place] [phone] 06/19/2022 Appointment Laboratory Medicine Angélica Granger P.A.-C. [address] [place] [phone] 07/03/2022 Appointment Laboratory Medicine Angélica Granger P.A.-C. [address] [place] [phone] 07/17/2022 Appointment Laboratory Medicine Angélica Granger P.A.-C. [address] [place] [phone] 07/31/2022 Appointment Laboratory Medicine Angélica Granger P.A.-C. [address] [place] [address] [phone] 08/14/2022 Appointment Laboratory Medicine Angélica Granger P.A.-C. [address] [place] [phone] 08/28/2022 Appointment Laboratory Medicine Angélica Granger P.A.-C. [address] [place] [phone] documented as of this encounter Visit Diagnoses Not on filedocumented in this encounter Additional Health Concerns Assessment Noted Time PHQ-9 Depression Total Score: 4 11/28/2020 10:17 AM CD T documented as of this encounter Care Teams Marketing Instructor Relationship Specialty Start Date End Date Elsewhere, Pcp PCP - General Family Medicine 07/29/17 [facility] - Laboratory Medicine 04/12/[address] [address] documented as of this encounter
--- OUTSIDE RECORDS SUMMARY | 2022-05-17 18:42 | XMS_ITS | Encounter Summary ---
:1955 Author Organization [facility] Address [address] [place] [address] Care Team Providers Name Role Phone Elsewhere, Pcp Primary Care Provider Unavailable Reason for Visit Reason Comments SHERIDAN Nurse Line Encounter Details Date Type Department Care Team Description 01/04/2021 Clinical Communication Division of Weeping Water[place]ERIDAN Nurse Makayla [facility] Internal Dorene Hamlin [facility] [phone] [place], in (Work) [place], [place] [address] [place] [address] Social History Tobacco Use Types Packs/Day Years [...] Date Recorded 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 - 01/04/2021 8:23 AM CDT COVID-19 Nurse Line Screening ASSESSMENT Patient calling to set up COVID testing as he has an upcoming appointment Friday with [facility] and would like a COVID test prior. [...] for COVID. Region Select appropriate region: : [place] Age Pathway Select approprite pathway: : Adult [...] swabbed for COVID-19 Only , sent to [facility] located at [address] [place] [address]. The entrance is on the north side of the building. You must call [phone] during the hours of 7am to 6 [...] frequently with soap and water, use hand office asst if soap and water aren't available. -Wear [...] care: Yes The following references were used: [facility] novel coronavirus (COVID- 19) resources CDC web site https://www.cdc.gov/coronavirus/2019-ncov/summary.html Nursing judgement documented in this encounter Plan of Treatment Upcoming Encounters Date Type Specialty Care Team Description 05/22/2022 Appointment Laboratory Medicine Angélica Granger P.A.-C. [address] [place] [phone] 05/23/2022 Clinical Admitting/Central Communication Scheduling 05/27/2022 Comprehensive Visit Orthopedic Surgery Markus Sams M.D., Ph.D. [address] [place] [phone] 05/29/2022 Office Visit Otorhinolaryngology Dex Matta APRN, C.N.P., M.S.N. [address] [place] [address] [phone] 05/29/2022 Office Visit Otorhinolaryngology Nadeem Maradiaga, P.A.-C., M.S. [address] [place] [address] [phone] 05/31/2022 Appointment Radiology Guilherme Matt MPAS, P.Murtaza.Marie., M.S. [address] [place] [phone] 06/05/2022 Appointment Laboratory Medicine Angélica Granger P.A.-C. [address] [place] [phone] 06/19/2022 Appointment Laboratory Medicine Angélica Granger P.A.-C. [address] [place] [phone] 07/03/2022 Appointment Laboratory Medicine Angélica Granger P.A.-C. [address] [place] [phone] 07/17/2022 Appointment Laboratory Medicine Angélica Granger P.A.-C. [address] [place] [phone] 07/31/2022 Appointment Laboratory Medicine Angélica Granger P.A.-C. [address] [place] [phone] 08/14/2022 Appointment Laboratory Medicine Angélica Granger P.A.-C. [address] [place] [phone] 08/28/2022 Appointment Laboratory Medicine Angélica Granger P.A.-C. [address] [place] [phone] documented as of this encounter Visit Diagnoses Not on filedocumented in this encounter Additional Health Concerns Assessment Noted Time PHQ-9 Depression Total Score: 4 11/28/2020 10:17 AM CD T documented as of this encounter Care Teams Manager Hvac Relationship Specialty Start Date End Date Elsewhere, Pcp PCP - General Family Medicine 07/29/17 [facility] - Laboratory Medicine 04/12/[address] [address] documented as of this encounter
--- OUTSIDE RECORDS SUMMARY | 2022-05-17 18:42 | XMS_ITS | Encounter Summary ---
:1955 Author Organization [facility] Address [address] [place] [address] Care Team Providers Name Role Phone Elsewhere, Pcp Primary Care Provider Unavailable Reason for Referral Medication Prior Authorization - Authorized Specialty Diagnoses / Procedures Referred By Contact Refer red To Contact Padmini Barry APRN, C.N.PDemetrius, D.N.P. Referral ID Status Reason Start Date Expiration Date Visits V isits Requested Authorized [id number] Authorized 09/30/2020 12/29/2021 1 1 Encounter Details Date Type Department Care Team Description 01/09/2021 Orders Only Division of Nephrology and Padmini Barry Hypertension in [facility], Arley GREENE.N.Evan Romo, [place] D.N.P. 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 [address] [place] [phone] 05/23/2022 Clinical Admitting/Central Communication Scheduling 05/27/2022 Comprehensive Visit Orthopedic Surgery Markus Sams M.D., Ph.D. [address] [place] [phone] 05/29/2022 Office Visit Otorhinolaryngology Dex Matta APRN, C.N.P., M.S.N. [address] [place] [phone] 05/29/2022 Office Visit Otorhinolaryngology Nadeem Maradiaga, P.Murtaza.-Arley., M.S. [address] [place] [address] [phone] 05/31/2022 Appointment Radiology Guilherme Matt MPAS, P.A.-C., M.S. [address] [place] [address] [phone] 06/05/2022 Appointment Laboratory Medicine Angélica Granger P.A.-C. [address] [place] [phone] 06/19/2022 Appointment Laboratory Medicine Angélica Granger P.A.-C. [address] [place] [phone] 07/03/2022 Appointment Laboratory Medicine Angélica Granger P.A.-C. [address] [place] [phone] 07/17/2022 Appointment Laboratory Medicine Angélica Granger P.A.-C. [address] [place] [address] [phone] 07/31/2022 Appointment Laboratory Medicine Angélica Granger P.A.-C. [address] [place] [address] [phone] 08/14/2022 Appointment Laboratory Medicine Angélica Granger P.A.-C. [address] [place] [phone] 08/28/2022 Appointment Laboratory Medicine Angélica Granger P.A.-C. [address] [place] [address] [phone] documented as of this encounter Visit Diagnoses Not on filedocumented in this encounter Additional Health Concerns Assessment Noted Time PHQ-9 Depression Total Score: 4 11/28/2020 10:17 AM CD T documented as of this encounter Care Teams Recycling Manager Relationship Specialty Start Date End Date Elsewhere, Pcp PCP - General Family Medicine 07/29/17 [facility] - Laboratory Medicine 04/12/20 [place] [phone] documented as of this encounter
--- OUTSIDE RECORDS SUMMARY | 2022-05-17 18:42 | XMS_ITS | Encounter Summary ---
:1955 Author Organization [facility] Address [address] [place] [address] Care Team Providers Name Role Phone Elsewhere, Pcp Primary Care Provider Unavailable Encounter Details Date Type Department Care Team Description 01/12/2021 Orders Only Division of Nephrology Antwan Barry (Primary Dx) and Hypertension in [place]admini Hernandez [place], [place] C.N.P., D.N.P. 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 [address] [place] [phone] 05/23/2022 Clinical Admitting/Central Communication Scheduling 05/27/2022 Comprehensive Visit Orthopedic Surgery Markus Sams M.D., Ph.D. [address] [place] [phone] 05/29/2022 Office Visit Otorhinolaryngology Dex Matta APRN, C.N.P., M.S.N. [address] [place] [address] [phone] 05/29/2022 Office Visit Otorhinolaryngology Nadeem Maradiaga, P.A.-C., M.S. [address] [place] [address] [phone] 05/31/2022 Appointment Radiology Guilherme Matt MPAS, P.Murtaza.Marie., M.S. [address] [place] [phone] 06/05/2022 Appointment Laboratory Medicine Angélica Granger P.A.-C. [address] [place] [phone] 06/19/2022 Appointment Laboratory Medicine Angélica Granger P.A.-C. [address] [place] [phone] 07/03/2022 Appointment Laboratory Medicine Angélica Granger P.A.-C. [address] [place] [phone] 07/17/2022 Appointment Laboratory Medicine Angélica Granger P.A.-C. [address] [place] [phone] 07/31/2022 Appointment Laboratory Medicine Angélica Granger P.A.-C. [address] [place] [phone] 08/14/2022 Appointment Laboratory Medicine Angélica Granger P.A.-C. [address] [place] [phone] 08/28/2022 Appointment Laboratory Medicine Angélica Granger P.A.-C. [address] [place] [address] [phone] Scheduled Orders Name Type Priority Associated Diagnoses [...] as of this encounter Care Teams Advertising Sales Agent Relationship Specialty Start Date End Date Elsewhere, Pcp PCP - General Family Medicine 07/29/17 [facility] - Laboratory Medicine 04/12/[address] [address] documented as of this encounter
--- OUTSIDE RECORDS SUMMARY | 2022-05-17 18:42 | XMS_ITS | Encounter Summary ---
:1955 Author Organization [facility] Address [address] [place] [address] Care Team Providers Name Role Phone Elsewhere, Pcp Primary Care Provider Unavailable Reason for Visit Outpatient (Routine) - Closed Specialty Diagnoses / Procedures Referred By Contact Refer red To Contact Nutrition Diagnoses Chronic Kidney Disease Stage 4 Glomerular Filtration Rate 15-29 ([facility]) Eve [facility] C.N.P., D.N.P. 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 ASSESSMENT Relevant Social [...] 50-60 grams Method to Estimate Energy Needs: Hernandez-Girard Hernandez-Girard BEE (Basal): 1551 HB Adjusted: 1861 Total Calorie Needs: 7775-8484 calories NUTRITION DIAGNOSIS Altered nutrition-related laboratory values [...] Laboratory Medicine Angélica Granger P.A.-C. [address] [place] [phone] 05/23/2022 Clinical Admitting/Central Communication Scheduling 05/27/2022 Comprehensive Visit Orthopedic Surgery Markus Sams M.D., Ph.D. [address] [place] [phone] 05/29/2022 Office Visit Otorhinolaryngology Dex Matta APRN, C.N.P., M.S.N. [address] [place] [phone] 05/29/2022 Office Visit Otorhinolaryngology Nadeem Maradiaga, Jennifer., M.S. [address] [place] [phone] 05/31/2022 Appointment Radiology Guilherme Matt, RASTA, Jennifer., M.S. [address] [place] [phone] 06/05/2022 Appointment Laboratory Medicine Angélica Granger P.A.-C. [address] [place] [phone] 06/19/2022 Appointment Laboratory Medicine Angélica Granger P.A.-C. [address] [place] [phone] 07/03/2022 Appointment Laboratory Medicine Angélica Granger P.A.-C. [address] [place] [phone] 07/17/2022 Appointment Laboratory Medicine Angélica Granger P.A.-C. [address] [place] [phone] 07/31/2022 Appointment Laboratory Medicine Angélica Granger P.A.-C. [address] [place] [phone] 08/14/2022 Appointment Laboratory Medicine Angélica Granger P.A.-C. [address] [place] [phone] 08/28/2022 Appointment Laboratory Medicine Angélica Granger P.A.-C. [address] [place] [phone] documented as of this encounter Visit Diagnoses Diagnosis Chronic Kidney Disease Stage 4 Glomerula r Filtration Rate 15-29 (HCC) documented in this encounter Additional Health Concerns Assessment Noted Time PHQ-9 Depression Total Score: 4 11/28/2020 10:17 AM CD T documented as of this encounter Care Teams Insurance Representative Relationship Specialty Start Date End Date Elsewhere, Pcp PCP - General Family Medicine 07/29/17 [facility] - Laboratory Medicine 04/12/[address] [address] documented as of this encounter
--- OUTSIDE RECORDS SUMMARY | 2022-05-17 18:42 | XMS_ITS | Encounter Summary ---
:1955 Author Organization [facility] Address [address] [place] [address] Care Team Providers Name Role Phone Elsewhere, Pcp Primary Care Provider Unavailable Reason for Visit Outpatient (Routine) - Closed Specialty Diagnoses / Procedures Referred By Contact Refer red To Contact Otorhinolaryngology Leanne Alex [place] M.D. [address] [place] [address] Referral ID Status Reason Start Date Expiration Date Visits Requ ested Visits Authorized [id number] Closed 08/29/2020 08/29/2021 1 1 Encounter Details Date Type Department Care Team Description 01/08/2021 Office Visit Department of Toro Pena Pneumonitis D ue To Inhalation Of Food And Vomit (HCC) (Primary Dx); Otorhinolaryngology in [place] Cough; [place], [place] [address] [facility] Rhinosinusitis Chronic; 200 [place], [place] [address] [phone] Social History Tobacco Use Types Packs/Day Years [...] organizations such as latter day groups, unions, fraCoherex Medical or athletic groups, or school groups? 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 Findings: Septum midline. No pus/purulence/polyps bilaterally. [place] Endoscopic Scoring System RIGHT LEFT POLYPS (0, [...] medical clearance evaluation performed. Toro Pena MD [facility] Department of Otorhinolaryngology - Head & Neck Surgery This note was completed with voice recognition software. Please excuse typographic errors. documented in this encounter Plan of Treatment Upcoming Encounters Date Type Specialty Care Team Description 05/22/2022 Appointment Laboratory Medicine Angélica Granger P.A.-C. [address] [place] [address] [phone] 05/23/2022 Clinical Admitting/Central Communication Scheduling 05/27/2022 Comprehensive Visit Orthopedic Surgery Markus Sams M.D., Ph.D. [address] [place] [phone] 05/29/2022 Office Visit Otorhinolaryngology Dex Matta, RAMONA, C.N.P., M.S.N. [address] [place] [phone] 05/29/2022 Office Visit Otorhinolaryngology Nadeem Maradiaga, PAdilia, M.S. [address] [place] [phone] 05/31/2022 Appointment Radiology [place], Guilherme RASTA Camejo P.A.-C., M.S. [address] [place] [phone] 06/05/2022 Appointment Laboratory Medicine Angélica Granger P.A.-C. [address] [place] [phone] 06/19/2022 Appointment Laboratory Medicine Angélica Granger P.A.-C. [address] [place] [phone] 07/03/2022 Appointment Laboratory Medicine Angélica Granger P.A.-C. [address] [place] [phone] 07/17/2022 Appointment Laboratory Medicine Angélica Granger P.A.-C. [address] [place] [phone] 07/31/2022 Appointment Laboratory Medicine Angélica Granger P.A.-C. [address] [place] [phone] 08/14/2022 Appointment Laboratory Medicine Angélica Granger P.A.-C. [address] [place] [phone] 08/28/2022 Appointment Laboratory Medicine Angélica Granger P.A.-C. [address] [place] [phone] documented as of this encounter Visit Diagnoses Diagnosis Pneumonitis Due To Inhalation Of Food An d Vomit (HCC) - Primary Cough Unspecified Type Rhinosinusitis Chronic Drip Post Nasal documented in this encounter Additional Health Concerns Assessment Noted Time PHQ-9 Depression Total Score: 4 11/28/2020 10:17 AM CD T documented as of this encounter Care Teams Subsurface Augmentee Operator Relationship Specialty Start Date End Date Elsewhere, Pcp PCP - General Family Medicine 07/29/17 [facility] - Laboratory Medicine 04/12/[address] [address] documented as of this encounter
--- OUTSIDE RECORDS SUMMARY | 2022-05-17 18:42 | XMS_ITS | Encounter Summary ---
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 [address] [place] [phone] 05/23/2022 Clinical Admitting/Central Communication Scheduling 05/27/2022 Comprehensive Visit Orthopedic Surgery Markus Sams M.D., Ph.D. [address] [place] [address] [phone] 05/29/2022 Office Visit Otorhinolaryngology Dex Matta APRN, C.N.P., M.S.N. [address] [place] [address] [phone] 05/29/2022 Office Visit Otorhinolaryngology Nadeem Maradiaga, P.A.-C., M.S. [address] [place] [address] [phone] 05/31/2022 Appointment Radiology Guilherme Matt MPAS, P.Murtaza.-Arley., M.S. [address] [place] [phone] 06/05/2022 Appointment Laboratory Medicine Angélica Granger P.A.-C. [address] [place] [phone] 06/19/2022 Appointment Laboratory Medicine Angélica Granger P.A.-C. [address] [place] [address] [phone] 07/03/2022 Appointment Laboratory Medicine Angélica Granger P.A.-C. [address] [place] [phone] 07/17/2022 Appointment Laboratory Medicine Angélica Granger P.A.-C. [address] [place] [address] [phone] 07/31/2022 Appointment Laboratory Medicine Angélica Granger P.A.-C. [address] [place] [phone] 08/14/2022 Appointment Laboratory Medicine Angélica Granger P.A.-C. [address] [place] [phone] 08/28/2022 Appointment Laboratory Medicine Angélica Granger P.A.-C. [address] [place] [phone] documented as of this encounter Visit Diagnoses Not on filedocumented in this encounter Additional Health Concerns Assessment Noted Time PHQ-9 Depression Total Score: 4 11/28/2020 10:17 AM CD T documented as of this encounter Care Teams Russian History Professor Relationship Specialty Start Date End Date Elsewhere, Pcp PCP - General Family Medicine 07/29/17 [facility] - Laboratory Medicine 04/12/[address] [address] documented as of this encounter
--- OUTSIDE RECORDS SUMMARY | 2022-05-17 18:42 | XMS_ITS | Encounter Summary ---
:1955 Author Organization [facility] Address [address] [place] [address] Care Team Providers Name Role Phone Elsewhere, Pcp Primary Care Provider Unavailable Reason for Visit Reason Comments Faxed Infusion Therapy Order Encounter Details Date Type Department Care Team Description 01/08/2021 Clinical Division of Jose, Faxed Infusion Communication Nephrology and Nikita Wise Hypertension in [facility], C.N.P.[place], [place] D.N.P. 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 Per/Makayla. documented in this encounter Plan of Treatment Upcoming Encounters Date Type Specialty Care Team Description 05/22/2022 Appointment Laboratory Medicine Angélica Granger P.A.-C. [address] [place] [phone] 05/23/2022 Clinical Admitting/Central Communication Scheduling 05/27/2022 Comprehensive Visit Orthopedic Surgery Markus Sams M.D., Ph.D. [address] [place] [phone] 05/29/2022 Office Visit Otorhinolaryngology Dex Matta APRN, C.N.P., M.S.N. [address] [place] [phone] 05/29/2022 Office Visit Otorhinolaryngology Nadeem Maradiaga P.A.-C., M.S. [address] [place] [phone] 05/31/2022 Appointment Radiology Guilherme Matt MPAS, P.A.-C., M.S. [address] [place] [phone] 06/05/2022 Appointment Laboratory Medicine Angélica Granger P.A.-C. [address] [place] [phone] 06/19/2022 Appointment Laboratory Medicine Angélica Granger P.A.-C. [address] [place] [phone] 07/03/2022 Appointment Laboratory Medicine Angélica Granger P.A.-C. [address] [place] [phone] 07/17/2022 Appointment Laboratory Medicine Angélica Granger P.A.-C. [address] [place] [phone] 07/31/2022 Appointment Laboratory Medicine Angélica Granger P.A.-C. [address] [place] [phone] 08/14/2022 Appointment Laboratory Medicine Angélica Granger P.A.-C. [address] [place] [phone] 08/28/2022 Appointment Laboratory Medicine Angélica Granger P.A.-C. [address] [place] [phone] documented as of this encounter Visit Diagnoses Not on filedocumented in this encounter Additional Health Concerns Assessment Noted Time PHQ-9 Depression Total Score: 4 11/28/2020 10:17 AM CD T documented as of this encounter Care Teams Fire Sprinkler Fitter Relationship Specialty Start Date End Date Elsewhere, Pcp PCP - General Family Medicine 07/29/17 [facility] - Laboratory Medicine 04/12/[address] [address] documented as of this encounter
--- OUTSIDE RECORDS SUMMARY | 2022-05-17 18:42 | XMS_ITS | Encounter Summary ---
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 His best number [phone]. Thank you, Kathryn documented in this encounter Plan of Treatment Upcoming Encounters Date Type Specialty Care Team Description 05/22/2022 Appointment Laboratory Medicine Angélica Granger P.A.-C. [address] [place] [phone] 05/23/2022 Clinical Admitting/Central Communication Scheduling 05/27/2022 Comprehensive Visit Orthopedic Surgery Markus Sams M.D., Ph.D. [address] [place] [phone] 05/29/2022 Office Visit Otorhinolaryngology Dex Matta APRN, C.N.P., M.S.N. [address] [place] [phone] 05/29/2022 Office Visit Otorhinolaryngology Nadeem Maradiaga, Edmundo, M.S. [address] [place] [phone] 05/31/2022 Appointment Radiology Guilherme Matt, Edmundo MAGDALENO, M.S. [address] [place] [phone] 06/05/2022 Appointment Laboratory Medicine Angélica Granger P.A.-C. [address] [place] [phone] 06/19/2022 Appointment Laboratory Medicine Angélica Granger P.A.-C. [address] [place] [phone] 07/03/2022 Appointment Laboratory Medicine Angélica Granger P.A.-C. [address] [place] [phone] 07/17/2022 Appointment Laboratory Medicine Angélica Granger P.A.-C. [address] [place] [phone] 07/31/2022 Appointment Laboratory Medicine Angélica Granger P.A.-C. [address] [place] [phone] 08/14/2022 Appointment Laboratory Medicine Angélica Granger P.A.-C. [address] [place] [phone] 08/28/2022 Appointment Laboratory Medicine Angélica Granger P.A.-C. [address] [place] [phone] documented as of this encounter Visit Diagnoses Not on filedocumented in this encounter Additional Health Concerns Assessment Noted Time PHQ-9 Depression Total Score: 4 11/28/2020 10:17 AM CD T documented as of this encounter Care Teams Supervisor Particleboard Relationship Specialty Start Date End Date Elsewhere, Pcp PCP - General Family Medicine 07/29/17 [facility] - Laboratory Medicine 04/12/[address] [address] documented as of this encounter
--- OUTSIDE RECORDS SUMMARY | 2022-05-17 18:42 | XMS_ITS | Encounter Summary ---
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 [address] [place] [phone] 05/23/2022 Clinical Admitting/Central Communication Scheduling 05/27/2022 Comprehensive Visit Orthopedic Surgery Markus Sams M.D., Ph.D. [address] [place] [phone] 05/29/2022 Office Visit Otorhinolaryngology Dex Matta APRN, C.N.P., M.S.N. [address] [place] [phone] 05/29/2022 Office Visit Otorhinolaryngology Nadeem Maradiaga, P.A.-Arley., M.S. [address] [place] [address] [phone] 05/31/2022 Appointment Radiology Guilherme Matt MPAS, PMaryanne., M.S. [address] [place] [address] [phone] 06/05/2022 Appointment Laboratory Medicine Angélica Granger P.A.-C. [address] [place] [phone] 06/19/2022 Appointment Laboratory Medicine Angélica Granger P.A.-C. [address] [place] [phone] 07/03/2022 Appointment Laboratory Medicine Angélica Granger P.A.-C. [address] [place] [phone] 07/17/2022 Appointment Laboratory Medicine Angélica Granger P.A.-C. [address] [place] [phone] 07/31/2022 Appointment Laboratory Medicine Angélica Granger P.A.-C. [address] [place] [phone] 08/14/2022 Appointment Laboratory Medicine Angélica Granger P.A.-C. [address] [place] [phone] 08/28/2022 Appointment Laboratory Medicine Angélica Granger P.A.-C. [address] [place] [phone] documented as of this encounter Visit Diagnoses Not on filedocumented in this encounter Additional Health Concerns Assessment Noted Time PHQ-9 Depression Total Score: 4 11/28/2020 10:17 AM CD T documented as of this encounter Care Teams Attorney Lawyer Relationship Specialty Start Date End Date Elsewhere, Pcp PCP - General Family Medicine 07/29/17 [facility] - Laboratory Medicine 04/12/[address] [address] documented as of this encounter
--- OUTSIDE RECORDS SUMMARY | 2022-05-17 18:42 | XMS_ITS | Encounter Summary ---
:1955 Author Organization [facility] Address [address] [place] [address] Care Team Providers Name Role Phone Elsewhere, Pcp Primary Care Provider Unavailable Reason for Visit Reason Onset Date Comments Testing For Upper Respiratory Virus Symptoms 01/04/2021 Encounter Details Date Type Department Care Team Description 01/04/2021 External Outreach Department of [facility] Mushtaq Salas Contact With And Medicine, Steven Stern D.O. 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 - 01/04/2021 9:30 AM CDT Encounter created for symptomatic infectious disease screening with possible COVID, Influenza, RSV, and/or Group A Strep testing. documented in this encounter Plan of Treatment Upcoming Encounters Date Type Specialty Care Team Description 05/22/2022 Appointment Laboratory Medicine Angélica Granger P.ADurgaCDemetrius [address] [place] [phone] 05/23/2022 Clinical Admitting/Central Communication Scheduling 05/27/2022 Comprehensive Visit Orthopedic Surgery Markus Sams M.D., Ph.D. [address] [place] [phone] 05/29/2022 Office Visit Otorhinolaryngology Dex Matta APRN, C.N.P., M.S.N. [address] [place] [phone] 05/29/2022 Office Visit Otorhinolaryngology Nadeem Maradiaga P.A.-C., M.S. [address] [place] [phone] 05/31/2022 Appointment Radiology Guilherme Matt MPAS, P.A.-C., M.S. [address] [place] [address] [phone] 06/05/2022 Appointment Laboratory Medicine Angélica Granger P.A.-C. [address] [place] [phone] 06/19/2022 Appointment Laboratory Medicine Angélica Granger P.A.-C. [address] [place] [phone] 07/03/2022 Appointment Laboratory Medicine Angélica Gragner P.A.-C. [address] [place] [phone] 07/17/2022 Appointment Laboratory Medicine Angélica Granger P.A.-C. [address] [place] [phone] 07/31/2022 Appointment Laboratory Medicine Angélica Granger P.A.-C. [address] [place] [phone] 08/14/2022 Appointment Laboratory Medicine Angélica Granger P.A.-C. [address] [place] [phone] 08/28/2022 Appointment Laboratory Medicine Angélica Granger P.A.-C. [address] [place] [phone] documented as of this encounter Procedures Procedure Name Priority Date/Time Associated Diagnosis Comme nts SARS CORONAVIRUS-2 Routine 01/04/2021 9:39 AM Contact With And Results for this RNA, V CDT (Suspected) Exposure procedu re are in To COVID-19 the results section. documented in this encounter Results SARS Coronavirus-2 RNA, V Symptomatic (01/04/2021 9:39 AM CDT) [facility] Method Time Signature SARS-CoV-2 Swab, 01/04/2021 MKTO [...] pe rformed using the Aptima SARS-CoV-2 assay ([employer] on the [employer] tem under emergency use authorization (EUA) by the U.S. Food and Drug Administ ration. Fact sheets for this EUA assay can be fo und at the following links: For Healthcare Providers: https://www.fd a.gov/media/732036/download For Patients: https://www.fda.gov/media/ 916885/download Specimen Anatomical Collection Method Collection Time Receive d Time (Source) Location / / Volume Laterality Varies 01/04/2021 9:39 AM 3:15 (Nasopharynx) CDT PM CDT Mushtaq Salas D.O. LAB MICROBIOLOGY - GENERAL O RDERABLES Performing Organization Address City/State/ZIP Code Phon e Number [facility]- [address] [place] [address] [facility] [address] documented in this encounter Visit Diagnoses Diagnosis Contact With And (Suspected) Exposure To COVID-19 - Primary documented in this encounter Additional Health Concerns Infection Onset Date Last Indicated Resolved Time COVID19 Pending 01/04/2021 01/04/2021 01/04/2021 9:44 PM CDT Assessment Noted Time PHQ-9 Depression Total Score: 4 11/28/2020 10:17 AM CD T documented as of this encounter Care Teams Frame Expander Relationship Specialty Start Date End Date Elsewhere, Pcp PCP - General Family Medicine 07/29/17 [facility] - Laboratory Medicine 04/12/20 [place] [phone] documented as of this encounter
--- OUTSIDE RECORDS SUMMARY | 2022-05-17 18:42 | XMS_ITS | Encounter Summary ---
:1955 Author Organization [facility] Address [address] [place] [address] Care Team Providers Name Role Phone Elsewhere, Pcp Primary Care Provider Unavailable Reason for Visit Reason Comments Call from Infusion Center Encounter Details Date Type Department Care Team Description 01/10/2021 Clinical Communication [facility] from [facility] Nephrology and Milka Carver Hypertension in [facility] C.N.P.[place], [place] D.N.P. 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 Telephone Encounter - Paige Elena - 01/15/2021 [...] CDT The requested information was fax to [facility] [phone]. Telephone Encounter - Padmini Barry APRN, C.N.P., D.N.P. - 01/12/2021 8:34 AM CDT CBC order placed. Telephone Encounter - Afshan Sargnet - 01/10/2021 2:18 PM CDT Call from [facility] An order for [...] would like it sent with everything else) documented in this encounter Plan of Treatment Upcoming Encounters Date Type Specialty Care Team Description 05/22/2022 Appointment Laboratory Medicine Angélica Granger, SaeedADurgaC. [address] [place] [phone] 05/23/2022 Clinical Admitting/Central Communication Scheduling 05/27/2022 Comprehensive Visit Orthopedic Surgery Markus Sams M.D., Ph.D. [address] [place] [phone] 05/29/2022 Office Visit Otorhinolaryngology Dex Matta APRN, C.NJuan Miguel, M.S.N. [address] [place] [phone] 05/29/2022 Office Visit Otorhinolaryngology Nadeem Maradiaga P.A.-C., M.S. [address] [place] [phone] 05/31/2022 Appointment Radiology Guilherme Matt MPAS, P.A.-C., M.S. [address] [place] [phone] 06/05/2022 Appointment Laboratory Medicine Angélica Granger P.A.-C. [address] [place] [phone] 06/19/2022 Appointment Laboratory Medicine Angélica Granger P.A.-C. [address] [place] [phone] 07/03/2022 Appointment Laboratory Medicine Angélica Granger P.A.-C. [address] [place] [phone] 07/17/2022 Appointment Laboratory Medicine Angélica Granger P.A.-C. [address] [place] [phone] 07/31/2022 Appointment Laboratory Medicine Angélica Granger P.A.-C. [address] [place] [phone] 08/14/2022 Appointment Laboratory Medicine Angélica Granger P.A.-C. [address] [place] [phone] 08/28/2022 Appointment Laboratory Medicine Angélica Granger P.A.-C. [address] [place] [phone] documented as of this encounter Visit Diagnoses Not on filedocumented in this encounter Additional Health Concerns Assessment Noted Time PHQ-9 Depression Total Score: 4 11/28/2020 10:17 AM CD T documented as of this encounter Care Teams Steam Engineer Relationship Specialty Start Date End Date Elsewhere, Pcp PCP - General Family Medicine 07/29/17 [facility] - Laboratory Medicine 04/12/20 [place] [phone] documented as of this encounter
--- OUTSIDE RECORDS SUMMARY | 2022-05-17 18:42 | XMS_ITS | Encounter Summary ---
:1955 Author Organization [facility] Address [address] [place] [address] Care Team Providers Name Role Phone Elsewhere, Pcp Primary Care Provider Unavailable Encounter Details Date Type Department Care Team Description 12/28/2020 Orders Only Department of Allen Palomares Otorhinolaryngology in E, [facility], [facility] 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 [address] [place] [phone] 05/23/2022 Clinical Admitting/Central Communication Scheduling 05/27/2022 Comprehensive Visit Orthopedic Surgery Markus Sams M.D., Ph.D. [address] [place] [phone] 05/29/2022 Office Visit Otorhinolaryngology Dex Matta, RAMONA, C.N.P., M.S.N. [address] [place] [phone] 05/29/2022 Office Visit Otorhinolaryngology Nadeem Maradiaga, PEdgar.Marie., M.S. [address] [place] [phone] 05/31/2022 Appointment Radiology Guilherme Matt, RASTA, Jennifer., M.S. [address] [place] [phone] 06/05/2022 Appointment Laboratory Medicine Angélica Granger P.A.-C. [address] [place] [address] [phone] 06/19/2022 Appointment Laboratory Medicine Angélica Granger P.A.-C. [address] [place] [phone] 07/03/2022 Appointment Laboratory Medicine Angélica Granger P.A.-C. [address] [place] [phone] 07/17/2022 Appointment Laboratory Medicine Angélica Granger P.A.-C. [address] [place] [phone] 07/31/2022 Appointment Laboratory Medicine Angélica Granger P.A.-C. [address] [place] [phone] 08/14/2022 Appointment Laboratory Medicine Angélica Granger P.A.-C. [address] [place] [phone] 08/28/2022 Appointment Laboratory Medicine Angélica Granger P.A.-C. [address] [place] [phone] documented as of this encounter Visit Diagnoses Not on filedocumented in this encounter Additional Health Concerns Assessment Noted Time PHQ-9 Depression Total Score: 4 11/28/2020 10:17 AM CD T documented as of this encounter Care Teams Real Estate Economist Relationship Specialty Start Date End Date Elsewhere, Pcp PCP - General Family Medicine 07/29/17 [facility] - Laboratory Medicine 04/12/[address] [address] documented as of this encounter
--- OUTSIDE RECORDS SUMMARY | 2022-05-17 18:42 | XMS_ITS | Encounter Summary ---
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 [address] [place] [phone] 05/23/2022 Clinical Admitting/Central Communication Scheduling 05/27/2022 Comprehensive Visit Orthopedic Surgery Markus Sams M.D., Ph.D. [address] [place] [address] [phone] 05/29/2022 Office Visit Otorhinolaryngology Dex Matta, RAMONA, C.N.P., M.S.N. [address] [place] [address] [phone] 05/29/2022 Office Visit Otorhinolaryngology Nadeem Maradiaga, P.A.-C., M.S. [address] [place] [address] [phone] 05/31/2022 Appointment Radiology Guilherme Matt MPAS, P.Murtaza.-Arley., M.S. [address] [place] [phone] 06/05/2022 Appointment Laboratory Medicine Angélica Granger P.A.-C. [address] [place] [phone] 06/19/2022 Appointment Laboratory Medicine Angélica Granger P.A.-C. [address] [place] [address] [phone] 07/03/2022 Appointment Laboratory Medicine Angélica Granger P.A.-C. [address] [place] [phone] 07/17/2022 Appointment Laboratory Medicine Angélica Granger P.A.-C. [address] [place] [phone] 07/31/2022 Appointment Laboratory Medicine Angélica Granger P.A.-C. [address] [place] [phone] 08/14/2022 Appointment Laboratory Medicine Angélica Granger P.A.-C. [address] [place] [phone] 08/28/2022 Appointment Laboratory Medicine Angélica Granger P.A.-C. [address] [place] [phone] documented as of this encounter Visit Diagnoses Not on filedocumented in this encounter Additional Health Concerns Infection Onset Date Last Indicated Resolved Time COVID19 Pending 01/04/2021 01/04/2021 01/04/2021 9:44 PM CDT Assessment Noted Time PHQ-9 Depression Total Score: 4 11/28/2020 10:17 AM CD T documented as of this encounter Care Teams Tape Stringer Relationship Specialty Start Date End Date Elsewhere, Pcp PCP - General Family Medicine 07/29/17 [facility] - Laboratory Medicine 04/12/[address] [address] documented as of this encounter
--- OUTSIDE RECORDS SUMMARY | 2022-05-17 18:42 | XMS_ITS | Encounter Summary ---
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 [address] [place] [phone] 05/23/2022 Clinical Admitting/Central Communication Scheduling 05/27/2022 Comprehensive Visit Orthopedic Surgery Markus Sams M.D., Ph.D. [address] [place] [phone] 05/29/2022 Office Visit Otorhinolaryngology Dex Matta APRN, C.N.P., M.S.N. [address] [place] [phone] 05/29/2022 Office Visit Otorhinolaryngology Nadeem Maradiaga P.A.-C., M.S. [address] [place] [phone] 05/31/2022 Appointment Radiology Guilherme Matt MPAS, P.A.-C., M.S. [address] [place] [phone] 06/05/2022 Appointment Laboratory Medicine Angélica Granger P.A.-C. [address] [place] [phone] 06/19/2022 Appointment Laboratory Medicine Angélica Granger P.A.-C. [address] [place] [phone] 07/03/2022 Appointment Laboratory Medicine Angélica Granger P.A.-C. [address] [place] [phone] 07/17/2022 Appointment Laboratory Medicine Angélica Granger P.A.-C. [address] [place] [phone] 07/31/2022 Appointment Laboratory Medicine Angélica Granger P.A.-C. [address] [place] [phone] 08/14/2022 Appointment Laboratory Medicine Angélica Granger P.A.-C. [address] [place] [phone] 08/28/2022 Appointment Laboratory Medicine Angélica Granger P.A.-C. [address] [place] [phone] documented as of this encounter Visit Diagnoses Not on filedocumented in this encounter Additional Health Concerns Assessment Noted Time PHQ-9 Depression Total Score: 4 11/28/2020 10:17 AM CD T documented as of this encounter Care Teams Brick Sorter Relationship Specialty Start Date End Date Elsewhere, Pcp PCP - General Family Medicine 07/29/17 [facility] - Laboratory Medicine 04/12/20 [place] [address] documented as of this encounter
--- OUTSIDE RECORDS SUMMARY | 2022-05-17 18:42 | XMS_ITS | Encounter Summary ---
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 : Transferred to nursing call line Plan: Endpoint recommendation: Transferred to Nursing/COVID Line/Care Team *Reminder if sending patient for testing in [facility] or [facility], route encounter to the correct testing pool. documented in this encounter Plan of Treatment Upcoming Encounters Date Type Specialty Care Team Description 05/22/2022 Appointment Laboratory Medicine Angélica Granger P.A.-C. [address] [place] [phone] 05/23/2022 Clinical Admitting/Central Communication Scheduling 05/27/2022 Comprehensive Visit Orthopedic Surgery Markus Sams M.D., Ph.D. [address] [place] [phone] 05/29/2022 Office Visit Otorhinolaryngology Dex Matta APRN, C.N.P., M.S.N. [address] [place] [phone] 05/29/2022 Office Visit Otorhinolaryngology Nadeem Maradiaga P.A.-C., M.S. [address] [place] [phone] 05/31/2022 Appointment Radiology Guilherme Matt MPAS, P.A.-C., M.S. [address] [place] [phone] 06/05/2022 Appointment Laboratory Medicine Angélica Granger P.A.-C. [address] [place] [phone] 06/19/2022 Appointment Laboratory Medicine Angélica Granger P.A.-C. [address] [place] [phone] 07/03/2022 Appointment Laboratory Medicine Angélica Granger P.A.-C. [address] [place] [phone] 07/17/2022 Appointment Laboratory Medicine Angélica Granger P.A.-C. [address] [place] [phone] 07/31/2022 Appointment Laboratory Medicine Angélica Granger P.A.-C. [address] [place] [phone] 08/14/2022 Appointment Laboratory Medicine Angélica Granger P.A.-C. [address] [place] [phone] 08/28/2022 Appointment Laboratory Medicine Angélica Granger P.A.-C. [address] [place] [phone] documented as of this encounter Visit Diagnoses Not on filedocumented in this encounter Additional Health Concerns Assessment Noted Time PHQ-9 Depression Total Score: 4 11/28/2020 10:17 AM CD T documented as of this encounter Care Teams Recreation Clerk Relationship Specialty Start Date End Date Elsewhere, Pcp PCP - General Family Medicine 07/29/17 [facility] - Laboratory Medicine 04/12/[address] [address] documented as of this encounter
--- OUTSIDE RECORDS SUMMARY | 2022-05-17 18:42 | XMS_ITS | Encounter Summary ---
:1955 Author Organization [facility] Address [address] [place] [address] Care Team Providers Name Role Phone Elsewhere, Pcp Primary Care Provider Unavailable Reason for Visit Outpatient (Routine) - Closed Specialty Diagnoses / Procedures Referred By Contact Refer red To Contact Otorhinolaryngology Allen Palomares [facility] Edmundo MAGDALENO [address] [place] [phone] Referral ID Status Reason Start Date Expiration Date Visits Requ ested Visits Authorized [id number] Closed 12/28/2020 12/28/2021 1 1 Encounter Details Date Type Department Care Team Description 01/08/2021 Office Visit Department of [place] Otorhinolaryngology in Allen Hernandez [place], [place] Edmundo MAGDALENO Right (Primary Dx) [address] [place] [address] [place] [address] [place], [place] [phone] Social History Tobacco Use Types Packs/Day Years [...] 12/15/2021 organizations such as samaritan groups, unions, frakooldiner or athletic groups, or school groups? 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 [address] [place] [phone] 05/23/2022 Clinical Admitting/Central Communication Scheduling 05/27/2022 Comprehensive Visit Orthopedic Surgery Markus Sams M.D., Ph.D. [address] [place] [phone] 05/29/2022 Office Visit Otorhinolaryngology Dex Matta APRN, C.N.P., M.S.N. [address] [place] [phone] 05/29/2022 Office Visit Otorhinolaryngology Nadeem Maradiaga, Edmundo, M.S. [address] [place] [phone] 05/31/2022 Appointment Radiology Guilherme Matt, RASTA, Edmundo, M.S. [address] [place] [phone] 06/05/2022 Appointment Laboratory Medicine Angélica Granger P.A.-C. [address] [place] [phone] 06/19/2022 Appointment Laboratory Medicine Angélica Granger P.A.-C. [address] [place] [phone] 07/03/2022 Appointment Laboratory Medicine Angélica Granger P.A.-C. [address] [place] [phone] 07/17/2022 Appointment Laboratory Medicine Angélica Granger P.A.-C. [address] [place] [phone] 07/31/2022 Appointment Laboratory Medicine Angélica Granger P.A.-C. [address] [place] [phone] 08/14/2022 Appointment Laboratory Medicine Angélica Granger P.A.-C. [address] [place] [phone] 08/28/2022 Appointment Laboratory Medicine Angélica Granger P.A.-C. [address] [place] [phone] documented as of this encounter Visit Diagnoses Diagnosis Perforation Tympanic Membrane Right - Pr imary documented in this encounter Additional Health Concerns Assessment Noted Time PHQ-9 Depression Total Score: 4 11/28/2020 10:17 AM CD T documented as of this encounter Care Teams Fire Prevention Specialist Relationship Specialty Start Date End Date Elsewhere, Pcp PCP - General Family Medicine 07/29/17 [facility] - Laboratory Medicine 04/12/[address] [address] documented as of this encounter
--- OUTSIDE RECORDS SUMMARY | 2022-05-17 18:42 | XMS_ITS | Encounter Summary ---
:[address] 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 He requests a call back at [phone] Thank you, CATRACHO Gee [phone] documented in this encounter Plan of Treatment Upcoming Encounters Date Type Specialty Care Team Description 05/22/2022 Appointment Laboratory Medicine Angélica Granger P.A.-C. [address] [place] [phone] 05/23/2022 Clinical Admitting/Central Communication Scheduling 05/27/2022 Comprehensive Visit Orthopedic Surgery Markus Sams M.D., Ph.D. [address] [place] [phone] 05/29/2022 Office Visit Otorhinolaryngology Dex Matta APRN, C.N.P., M.S.N. [address] [place] [phone] 05/29/2022 Office Visit Otorhinolaryngology Nadeem Maradiaga, P.A.-C., M.S. [address] [place] [phone] 05/31/2022 Appointment Radiology Guilherme Matt, RASTA, P.Murtaza.-C., M.S. [address] [place] [phone] 06/05/2022 Appointment Laboratory Medicine Angélica Granger P.A.-C. [address] [place] [phone] 06/19/2022 Appointment Laboratory Medicine Agnélica Granger P.A.-C. [address] [place] [phone] 07/03/2022 Appointment Laboratory Medicine Angélica Granger P.A.-C. [address] [place] [phone] 07/17/2022 Appointment Laboratory Medicine Angélica Granger P.A.-C. [address] [place] [phone] 07/31/2022 Appointment Laboratory Medicine Angélica Granger P.A.-C. [address] [place] [phone] 08/14/2022 Appointment Laboratory Medicine Angélica Granger P.A.-C. [address] [place] [address] [phone] 08/28/2022 Appointment Laboratory Medicine Angélica Granger P.A.-C. [address] [place] [address] [phone] documented as of this encounter Visit Diagnoses Not on filedocumented in this encounter Additional Health Concerns Infection Onset Date Last Indicated Resolved Time COVID19 Pending 01/04/2021 01/04/2021 01/04/2021 9:44 PM CDT Assessment Noted Time PHQ-9 Depression Total Score: 4 11/28/2020 10:17 AM CD T documented as of this encounter Care Teams Pharmacy Laboratory Technician Relationship Specialty Start Date End Date Elsewhere, Pcp PCP - General Family Medicine 07/29/17 [facility] - Laboratory Medicine 04/12/[address] [address] documented as of this encounter
--- OUTSIDE RECORDS SUMMARY | 2022-05-17 18:42 | XMS_ITS | Encounter Summary ---
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 [address] [place] [phone] 05/23/2022 Clinical Admitting/Central Communication Scheduling 05/27/2022 Comprehensive Visit Orthopedic Surgery Markus Sams M.D., Ph.D. [address] [place] [phone] 05/29/2022 Office Visit Otorhinolaryngology Dex Matta APRN, C.N.P., M.S.N. [address] [place] [phone] 05/29/2022 Office Visit Otorhinolaryngology Nadeem Maradiaga, PMaryanne., M.S. [address] [place] [phone] 05/31/2022 Appointment Radiology Guilherme Matt MPAS, Jennifer., M.S. [address] [place] [phone] 06/05/2022 Appointment Laboratory Medicine Angélica Granger P.A.-C. [address] [place] [phone] 06/19/2022 Appointment Laboratory Medicine Angélica Granger P.A.-C. [address] [place] [phone] 07/03/2022 Appointment Laboratory Medicine Angélica Granger P.A.-C. [address] [place] [phone] 07/17/2022 Appointment Laboratory Medicine Angélica Granger P.A.-C. [address] [place] [phone] 07/31/2022 Appointment Laboratory Medicine Angélica Granger P.A.-C. [address] [place] [phone] 08/14/2022 Appointment Laboratory Medicine Angélica Granger P.A.-C. [address] [place] [phone] 08/28/2022 Appointment Laboratory Medicine Angélica Granger P.A.-C. [address] [place] [phone] documented as of this encounter Procedures Procedure [...] documented as of this encounter Care Teams Suspender Maker Relationship Specialty Start Date End Date Elsewhere, Pcp PCP - General Family Medicine 07/29/17 [facility] - Laboratory Medicine 04/12/20 [place] [phone] documented as of this encounter
--- OUTSIDE RECORDS SUMMARY | 2022-05-17 18:42 | XMS_ITS | Encounter Summary ---
:1955 Author Organization [facility] Address [address] [place] [address] Care Team Providers Name Role Phone Elsewhere, Pcp Primary Care Provider Unavailable Encounter Details Date Type Department Care Team Description 01/09/2021 Orders Only Division of Nephrology and Padmini Barry Hypertension in [facility], INTERNAL AUDIT SENIOR MANAGER, C.N.P ., [place] D.N.P. 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 [address] [place] [address] [phone] 05/23/2022 Clinical Admitting/Central Communication Scheduling 05/27/2022 Comprehensive Visit Orthopedic Surgery Markus Sams M.D., Ph.D. [address] [place] [phone] 05/29/2022 Office Visit Otorhinolaryngology Dex Matta, RAMONA, C.N.P., M.S.N. [address] [place] [phone] 05/29/2022 Office Visit Otorhinolaryngology Nadeem Maradiaga, P.A.-C., M.S. [address] [place] [address] [phone] 05/31/2022 Appointment Radiology Guilherme Matt MPAS, P.Murtaza.Marie., M.S. [address] [place] [address] [phone] 06/05/2022 Appointment Laboratory Medicine Angélica Granger P.A.-C. [address] [place] [phone] 06/19/2022 Appointment Laboratory Medicine Angélica Granger P.A.-C. [address] [place] [phone] 07/03/2022 Appointment Laboratory Medicine Angélica Granger P.A.-C. [address] [place] [phone] 07/17/2022 Appointment Laboratory Medicine Angélica Granger P.A.-C. [address] [place] [phone] 07/31/2022 Appointment Laboratory Medicine Angélica Granger P.A.-C. [address] [place] [address] [phone] 08/14/2022 Appointment Laboratory Medicine Angélica Granger P.A.-C. [address] [place] [address] [phone] 08/28/2022 Appointment Laboratory Medicine Angélica Granger P.A.-C. [address] [place] [phone] documented as of this encounter Visit Diagnoses Not on filedocumented in this encounter Additional Health Concerns Assessment Noted Time PHQ-9 Depression Total Score: 4 11/28/2020 10:17 AM CD T documented as of this encounter Care Teams 3Rd Mate Relationship Specialty Start Date End Date Elsewhere, Pcp PCP - General Family Medicine 07/29/17 [facility] - Laboratory Medicine 04/12/[address] [address] documented as of this encounter
--- OUTSIDE RECORDS SUMMARY | 2022-05-17 18:43 | XMS_ITS | Encounter Summary ---
:1955 Author Organization [facility] Address [address] [place] [address] Care Team Providers Name Role Phone Elsewhere, Pcp Primary Care Provider Unavailable Reason for Visit Reason Comments Rx Prior Authorization Encounter Details Date Type Department Care Team Description 11/29/2020 Clinical Division of Claire, Rocky Prior Communication Nephrology and Juan Hughes Hypertension in M.D. [place], [place] [address] 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 Telephone Encounter - Paige Elena - 11/29/2020 12:41 PM CDT -Faxed Prior Authorization Request for??Ondansetron 4 MG to [facility] [phone]. Any questions please contact Prior Auth Team at [phone] [facility]. documented in this encounter Plan of Treatment Upcoming Encounters Date Type Specialty Care Team Description 05/22/2022 Appointment Laboratory Medicine Angélica Granger P.A.-C. [address] [place] [address] [phone] 05/23/2022 Clinical Admitting/Central Communication Scheduling 05/27/2022 Comprehensive Visit Orthopedic Surgery Markus Sams M.D., Ph.D. [address] [place] [address] [phone] 05/29/2022 Office Visit Otorhinolaryngology Dex Matta APRN C.N.P., M.S.N. [address] [place] [phone] 05/29/2022 Office Visit Otorhinolaryngology Nadeem Maradiaga, Jennifer., M.S. [address] [place] [phone] 05/31/2022 Appointment Radiology Guilherme Matt, Edmundo MAGDALENO, M.S. [address] [place] [phone] 06/05/2022 Appointment Laboratory Medicine Angélica Granger P.A.-C. [address] [place] [phone] 06/19/2022 Appointment Laboratory Medicine Angélica Granger P.A.-C. [address] [place] [phone] 07/03/2022 Appointment Laboratory Medicine Angélica Gragner P.A.-C. [address] [place] [phone] 07/17/2022 Appointment Laboratory Medicine Angélica Granger P.A.-C. [address] [place] [phone] 07/31/2022 Appointment Laboratory Medicine Angélica Granger P.A.-C. [address] [place] [phone] 08/14/2022 Appointment Laboratory Medicine Angélica Granger P.A.-C. [address] [place] [phone] 08/28/2022 Appointment Laboratory Medicine Angélica Granger P.A.-C. [address] [place] [phone] documented as of this encounter Visit Diagnoses Not on filedocumented in this encounter Additional Health Concerns Assessment Noted Time PHQ-9 Depression Total Score: 4 11/28/2020 10:17 AM CD T documented as of this encounter Care Teams Tube Former Operator Relationship Specialty Start Date End Date Elsewhere, Pcp PCP - General Family Medicine 07/29/17 [facility] - Laboratory Medicine 04/12/[address] [address] documented as of this encounter
--- OUTSIDE RECORDS SUMMARY | 2022-05-17 18:43 | XMS_ITS | Encounter Summary ---
:1955 Author Organization [facility] Address [address] [place] [address] Care Team Providers Name Role Phone Elsewhere, Pcp Primary Care Provider Unavailable Reason for Visit Reason Comments Faxed outside lab order Encounter Details Date Type Department Care Team Description 11/30/2020 Clinical Division of Mirian Ramirez Faxed outsid e lab Communication Nephrology and R, ACRYLIC FABRICATOR, order Hypertension in C.N.P., M.S.N. 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 Mailed a copy to Mr.Daryl Julian [address] [place] [phone]. documented in this encounter Plan of Treatment Upcoming Encounters Date Type Specialty Care Team Description 05/22/2022 Appointment Laboratory Medicine Angélica Granger P.A.-C. [address] [place] [phone] 05/23/2022 Clinical Admitting/Central Communication Scheduling 05/27/2022 Comprehensive Visit Orthopedic Surgery Markus Sams M.D., Ph.D. [address] [place] [phone] 05/29/2022 Office Visit Otorhinolaryngology Dex Matta APRN, C.N.P., M.S.N. [address] [place] [phone] 05/29/2022 Office Visit Otorhinolaryngology Nadeem Maradiaga, Jennifer., M.S. [address] [place] [phone] 05/31/2022 Appointment Radiology Guilherme Matt MPAS, P.A.-C., M.S. [address] [place] [phone] 06/05/2022 Appointment Laboratory Medicine Angélica Granger P.A.-C. [address] [place] [phone] 06/19/2022 Appointment Laboratory Medicine Angélica Granger P.A.-C. [address] [place] [phone] 07/03/2022 Appointment Laboratory Medicine Angélica Granger P.A.-C. [address] [place] [phone] 07/17/2022 Appointment Laboratory Medicine Angélica Granger P.A.-C. [address] [place] [phone] 07/31/2022 Appointment Laboratory Medicine Angélica Granger P.A.-C. [address] [place] [phone] 08/14/2022 Appointment Laboratory Medicine Angélica Granger P.A.-C. [address] [place] [phone] 08/28/2022 Appointment Laboratory Medicine Angélica Granger P.A.-C. [address] [place] [phone] documented as of this encounter Visit Diagnoses Not on filedocumented in this encounter Additional Health Concerns Assessment Noted Time PHQ-9 Depression Total Score: 4 11/28/2020 10:17 AM CD T documented as of this encounter Care Teams Workforce Consultant Relationship Specialty Start Date End Date Elsewhere, Pcp PCP - General Family Medicine 07/29/17 [facility] - Laboratory Medicine 04/12/[address] [address] documented as of this encounter
--- OUTSIDE RECORDS SUMMARY | 2022-05-17 18:43 | XMS_ITS | Encounter Summary ---
:1955 Author Organization [facility] Address [address] [place] [address] Care Team Providers Name Role Phone Elsewhere, Pcp Primary Care Provider Unavailable Reason for Visit Outpatient (Routine) - Closed Specialty Diagnoses / Procedures Referred By Contact Refer red To Contact Dermatology Diagnoses Squamous Cell Carcinoma [facility]u [facility] MAK MOHS 1-4 sites RAMONA, C.N.P., D.N.P. [address] [place] [phone] Referral ID Status Reason Start Date Expiration Date Visits Requ ested Visits Authorized [id number] Closed 10/04/2020 10/04/2021 1 1 Encounter Details Date Type Department Care Team Description 11/30/2020 Procedure visit Department of Bird Cruz Cell Dermatology samm Cardenas M.D. Carcinoma In Situ [place], [place] [address] [place] [address] (Primary Dx) [address] [place] [phone] Social History Tobacco Use Types Packs/Day Years [...] 12/15/2021 organizations such as lutheran groups, unions, [employer] or athletic groups, or school groups? 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 [address] [place] [phone] 05/23/2022 Clinical Admitting/Central Communication Scheduling 05/27/2022 Comprehensive Visit Orthopedic Surgery Markus Sams M.D., Ph.D. [address] [place] [phone] 05/29/2022 Office Visit Otorhinolaryngology Dex Matta APRN, C.N.P., M.S.N. [address] [place] [phone] 05/29/2022 Office Visit Otorhinolaryngology Nadeem Maradiaga P.A.-C., M.S. [address] [place] [phone] 05/31/2022 Appointment Radiology Guilherme Matt MPAS, P.A.-C., M.S. [address] [place] [phone] 06/05/2022 Appointment Laboratory Medicine Angélica Granger P.A.-C. [address] [place] [phone] 06/19/2022 Appointment Laboratory Medicine Angélica Granger P.A.-C. [address] [place] [phone] 07/03/2022 Appointment Laboratory Medicine Angélica Granger P.A.-C. [address] [place] [phone] 07/17/2022 Appointment Laboratory Medicine Angélica Granger P.A.-C. [address] [place] [phone] 07/31/2022 Appointment Laboratory Medicine Angélica Granger P.A.-C. [address] [place] [phone] 08/14/2022 Appointment Laboratory Medicine Angélica Granger P.A.-C. [address] [place] [address], [place] [phone] 08/28/2022 Appointment Laboratory Medicine Angélica Granger P.A.-C. [address] [place] [phone] documented as of this encounter Visit Diagnoses [...] documented as of this encounter Care Teams Sterile Preparation Technician Relationship Specialty Start Date End Date Elsewhere, Pcp PCP - General Family Medicine 07/29/[address] [facility] - Laboratory Medicine 04/12/20 [place] [phone] documented as of this encounter
--- OUTSIDE RECORDS SUMMARY | 2022-05-17 18:43 | XMS_ITS | Encounter Summary ---
:1955 Author Organization [facility] Address [address] [place] [address] Care Team Providers Name Role Phone Elsewhere, Pcp Primary Care Provider Unavailable Reason for Visit Reason Comments rx-Ciprodex Encounter Details Date Type Department Care Team Description 12/28/2020 Clinical Department of Jennifer Palomares Communication Otorhinolaryngology in [place], [place] RASTA PDemetriusA.-C. 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 - 12/28/2020 2:45 PM CDT I prescribed alternative of ofloxacin/prednisolone. Thanks! Telephone Encounter - Lina Abarca - 12/28/2020 2:32 PM CDT [facility] Cipro/Dexameth is not covered with his plan. Would you like to initiate prior authorization or send a different rx. Thank you. documented in this encounter Plan of Treatment Upcoming Encounters Date Type Specialty Care Team Description 05/22/2022 Appointment Laboratory Medicine Angélica Granger P.A.-C. [address] [place] [phone] 05/23/2022 Clinical Admitting/Central Communication Scheduling 05/27/2022 Comprehensive Visit Orthopedic Surgery Markus Sams M.D., Ph.D. [address] [place] [phone] 05/29/2022 Office Visit Otorhinolaryngology Dex Matta APRN, C.N.P., M.S.N. [address] [place] [address] [phone] 05/29/2022 Office Visit Otorhinolaryngology Nadeem Maradiaga, Jennifer., M.S. [address] [place] [phone] 05/31/2022 Appointment Radiology Guilherme Matt MPAS, Edmundo, M.S. [address] [place] [phone] 06/05/2022 Appointment Laboratory Medicine Angélica Granger P.A.-C. [address] [place] [phone] 06/19/2022 Appointment Laboratory Medicine Angélica Granger P.A.-C. [address] [place] [address] [phone] 07/03/2022 Appointment Laboratory Medicine Angélica Granger P.A.-C. [address] [place] [phone] 07/17/2022 Appointment Laboratory Medicine Angélica Granger P.A.-C. [address] [place] [address] [phone] 07/31/2022 Appointment Laboratory Medicine Angélica Granger P.A.-C. [address] [place] [phone] 08/14/2022 Appointment Laboratory Medicine Angélica Granger P.A.-C. [address] [place] [phone] 08/28/2022 Appointment Laboratory Medicine Angélica Granger P.A.-C. [address] [place] [phone] documented as of this encounter Visit Diagnoses Not on filedocumented in this encounter Additional Health Concerns Infection Onset Date Last Indicated Resolved Time COVID19 Pending 01/04/2021 01/04/2021 01/04/2021 9:44 PM CDT Assessment Noted Time PHQ-9 Depression Total Score: 4 11/28/2020 10:17 AM CD T documented as of this encounter Care Teams Wood Calker Relationship Specialty Start Date End Date Elsewhere, Pcp PCP - General Family Medicine 07/29/17 [facility] - Laboratory Medicine 04/12/[address] [address] documented as of this encounter
--- OUTSIDE RECORDS SUMMARY | 2022-05-17 18:43 | XMS_ITS | Encounter Summary ---
:1955 Author Organization [facility] Address [address] [place] [address] Care Team Providers Name Role Phone Elsewhere, Pcp Primary Care Provider Unavailable Reason for Visit Outpatient (Routine) - Closed Specialty Diagnoses / Procedures Referred By Contact Refer red To Contact Pulmonary Medicine Diagnoses Bronchitis Chronic ([facility]) [facility] Sada 200 [place] [address] Referral ID Status Reason Start Date Expiration Date Visits V isits Requested Authorized [id number] Closed Specialty 11/27/2020 11/27/2021 1 1 Services Required Encounter Details Date Type Department Care Team Description 12/08/2020 Office Visit Division of Pulmonary Connie Aaron Chronic Medicine in , M.B.B.S. ([facility]) [place], [place] [address] [place] [address] 200 [place] [phone] Social History Tobacco Use Types Packs/Day Years [...] 12/15/2021 organizations such as advent groups, unions, [employer] or athletic groups, or school groups? 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 Holiday a dose of steroid in the ED [...] Laboratory Medicine Angélica Granger P.A.-C. [address] [place] [phone] 05/23/2022 Clinical Admitting/Central Communication Scheduling 05/27/2022 Comprehensive Visit Orthopedic Surgery Markus Sams M.D., Ph.D. [address] [place] [phone] 05/29/2022 Office Visit Otorhinolaryngology Dex Matta APRN, C.N.P., M.S.N. [address] [place] [phone] 05/29/2022 Office Visit Otorhinolaryngology Nadeem Maradiaga P.A.-C., M.S. [address] [place] [address] [phone] 05/31/2022 Appointment Radiology Guilherme Matt MPAS, P.A.-C., M.S. [address] [place] [phone] 06/05/2022 Appointment Laboratory Medicine Angélica Granger P.A.-C. [address] [place] [phone] 06/19/2022 Appointment Laboratory Medicine Angélica Granger P.A.-C. [address] [place] [phone] 07/03/2022 Appointment Laboratory Medicine Angélica Granger P.A.-C. [address] [place] [phone] 07/17/2022 Appointment Laboratory Medicine Angélica Granger P.A.-C. [address] [place] [phone] 07/31/2022 Appointment Laboratory Medicine Angélica Granger P.A.-C. [address] [place] [phone] 08/14/2022 Appointment Laboratory Medicine Angélica Granger P.A.-C. [address] [place] [phone] 08/28/2022 Appointment Laboratory Medicine Angélica Granger P.A.-C. [address] [place] [phone] documented as of this encounter Visit Diagnoses Diagnosis Bronchitis Chronic (HCC) documented in this encounter Additional Health Concerns Assessment Noted Time PHQ-9 Depression Total Score: 4 11/28/2020 10:17 AM CD T documented as of this encounter Care Teams Electromechanical Equipment Tester Relationship Specialty Start Date End Date Elsewhere, Pcp PCP - General Family Medicine 07/29/17 [facility] - Laboratory Medicine 04/12/[address] [address] documented as of this encounter
--- OUTSIDE RECORDS SUMMARY | 2022-05-17 18:43 | XMS_ITS | Encounter Summary ---
:1955 Author Organization [facility] Address [address] [place] [address] Care Team Providers Name Role Phone Elsewhere, Pcp Primary Care Provider Unavailable Encounter Details Date Type Department Care Team Description 11/29/2020 Orders Only Pharmacy Prior Auth Argelia Rodriguez I. 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 [address] [place] [phone] 05/23/2022 Clinical Admitting/Central Communication Scheduling 05/27/2022 Comprehensive Visit Orthopedic Surgery Markus Sams M.D., Ph.D. [address] [place] [phone] 05/29/2022 Office Visit Otorhinolaryngology Dex Matta APRN, C.N.P., M.S.N. [address] [place] [phone] 05/29/2022 Office Visit Otorhinolaryngology Nadeem Maradiaga, P.Murtaza.-Arley., M.S. [address] [place] [phone] 05/31/2022 Appointment Radiology Guilherme Matt MPAS, PEdgar.Maire., M.S. [address] [place] [phone] 06/05/2022 Appointment Laboratory Medicine Angélica Granger P.A.-C. [address] [place] [phone] 06/19/2022 Appointment Laboratory Medicine Angélica Granger P.A.-C. [address] [place] [phone] 07/03/2022 Appointment Laboratory Medicine Angélica Granger P.A.-C. [address] [place] [phone] 07/17/2022 Appointment Laboratory Medicine Angélica Granger P.A.-C. [address] [place] [phone] 07/31/2022 Appointment Laboratory Medicine Angélica Granger P.A.-C. [address] [place] [phone] 08/14/2022 Appointment Laboratory Medicine Angélica Granger P.A.-C. [address] [place] [phone] 08/28/2022 Appointment Laboratory Medicine Angélica Granger P.A.-C. [address] [place] [phone] documented as of this encounter Visit Diagnoses Not on filedocumented in this encounter Additional Health Concerns Assessment Noted Time PHQ-9 Depression Total Score: 4 11/28/2020 10:17 AM CD T documented as of this encounter Care Teams Python Architect Relationship Specialty Start Date End Date Elsewhere, Pcp PCP - General Family Medicine 07/29/17 [facility] - Laboratory Medicine 04/12/[address] [address] documented as of this encounter
--- OUTSIDE RECORDS SUMMARY | 2022-05-17 18:43 | XMS_ITS | Encounter Summary ---
:1955 Author Organization [facility] Address [address] [place] [address] Care Team Providers Name Role Phone Elsewhere, Pcp Primary Care Provider Unavailable Reason for Referral Outpatient (Routine) - Closed Specialty Diagnoses / Procedures Referred By Contact Refer red To Contact Otorhinolaryngology Allen [facility]omares [facility], P.Murtaza.-CDemetrius [address] [place] [phone] Referral ID Status Reason Start Date Expiration Date Visits Requ ested Visits Authorized [id number] Closed 12/28/2020 12/28/2021 1 1 Reason for Visit Outpatient (Routine) - Closed Specialty Diagnoses / Procedures Referred By Contact Refer red To Contact Otorhinolaryngology Diagnoses Cerumen Impacted Bilateral Dotty Burrows [facility] P.A.-CDemetrius [address] [place] [address] Referral ID Status Reason Start Date Expiration Date Visits V isits Requested Authorized [id number] Closed Specialty 12/26/2020 12/26/2021 1 1 Services Required Encounter Details Date Type Department Care Team Description 12/28/2020 Comprehensive Visit Department of Marielle, Otitis Media Acute Right (Primary Dx); Otorhinolaryngology in Allen Hernandez, Myrin gitis Acute Right; [facility], Cerumen Impacted Left [address] [facility] 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 Attends [employer] [facility]: More than 4 times per year [...] Laboratory Medicine Angélica Granger P.A.-C. [address] [place] [phone] 05/23/2022 Clinical Admitting/Central Communication Scheduling 05/27/2022 Comprehensive Visit Orthopedic Surgery Markus Sams M.D., Ph.D. [address] [place] [phone] 05/29/2022 Office Visit Otorhinolaryngology Dex Matta APRN, C.N.P., M.S.N. [address] [place] [phone] 05/29/2022 Office Visit Otorhinolaryngology Nadeem Maradiaga, P.Tom., M.S. [address] [place] [phone] 05/31/2022 Appointment Radiology Guilherme Matt, RASTA, PMaryanne., M.S. [address] [place] [phone] 06/05/2022 Appointment Laboratory Medicine Angélica Granger P.A.-C. [address] [place] [phone] 06/19/2022 Appointment Laboratory Medicine Angélica Granger P.A.-C. [address] [place] [phone] 07/03/2022 Appointment Laboratory Medicine Angélica Granger P.A.-C. [address] [place] [phone] 07/17/2022 Appointment Laboratory Medicine Angélica Granger P.A.-C. [address] [place] [phone] 07/31/2022 Appointment Laboratory Medicine Angélica Granger P.A.-C. [address] [place] [phone] 08/14/2022 Appointment Laboratory Medicine Angélica Granger P.A.-C. [address] [place] [phone] 08/28/2022 Appointment Laboratory Medicine Angélica Granger P.A.-C. [address] [place] [phone] Scheduled Referrals Name Type Priority Associated Order [...] documented as of this encounter Care Teams Joinery Patternmaker Relationship Specialty Start Date End Date Elsewhere, Pcp PCP - General Family Medicine 07/29/17 [facility] - Laboratory Medicine 04/12/[address] [address] documented as of this encounter
--- OUTSIDE RECORDS SUMMARY | 2022-05-17 18:43 | XMS_ITS | Encounter Summary ---
:1955 Author Organization [facility] Address [address] [place] [address] Care Team Providers Name Role Phone Elsewhere, Pcp Primary Care Provider Unavailable Reason for Referral Outpatient (Routine) - Closed Specialty Diagnoses / Procedures Referred By Contact Refer red To Contact Nephrology and Mirian Ramirez, Rosalio Reg [facility] Hypertension Deshawn GREENE, M.S.N. [address] [place] [phone] Referral ID Status Reason Start Date Expiration Date Visits Requ ested Visits Authorized [id number] Closed 11/29/2020 11/29/2021 1 1 Scheduling Instructions Outside lab order entered. Please ensure Zoe Mancuso in [place], [place] gets these. Thank you Encounter Details Date Type Department Care Team Description 11/29/2020 Orders Only Division of Nephrology Mirian Ramirez, Chronic Kidney Disease Stage 5 Glomerular Filtration Rate Less Than 15 (HCC) (Primary Dx); and Hypertension in Deshawn GREENE, Hyperte nsion And Chronic Kidney Disease Stage 4 (HCC) [place], [place] M.S.N. [address] 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 [address] [place] [phone] 05/23/2022 Clinical Admitting/Central Communication Scheduling 05/27/2022 Comprehensive Visit Orthopedic Surgery Markus Sams M.D., Ph.D. [address] [place] [phone] 05/29/2022 Office Visit Otorhinolaryngology Dex Matta APRN CDemetriusNDemetriusP., M.S.N. [address] [place] [phone] 05/29/2022 Office Visit Otorhinolaryngology Nadeem Maradiaga P.A.-C., M.S. [address] [place] [phone] 05/31/2022 Appointment Radiology Guilherme Matt MPAS, P.A.-C., M.S. [address] [place] [phone] 06/05/2022 Appointment Laboratory Medicine Angélica Granger P.A.-C. [address] [place] [phone] 06/19/2022 Appointment Laboratory Medicine Angélica Granger P.A.-C. [address] [place] [phone] 07/03/2022 Appointment Laboratory Medicine Angélica Granger P.A.-C. [address] [place] [phone] 07/17/2022 Appointment Laboratory Medicine Angélica Granger P.A.-C. [address] [place] [phone] 07/31/2022 Appointment Laboratory Medicine Angélica Granger P.A.-C. [address] [place] [phone] 08/14/2022 Appointment Laboratory Medicine Angélica Granger P.A.-C. [address] [place] [phone] 08/28/2022 Appointment Laboratory Medicine Angélica Granger P.A.-C. [address] [place] [phone] Scheduled Referrals Name Type Priority Associated Order [...] documented as of this encounter Care Teams Bulk Tank Car Unloader Relationship Specialty Start Date End Date Elsewhere, Pcp PCP - General Family Medicine 07/29/17 [facility] - Laboratory Medicine 04/12/[address] [address] documented as of this encounter
--- OUTSIDE RECORDS SUMMARY | 2022-05-17 18:43 | XMS_ITS | Encounter Summary ---
:1955 Author Organization [facility] Address [address] [place] [address] Care Team Providers Name Role Phone Elsewhere, Pcp Primary Care Provider Unavailable Reason for Visit Reason Comments Chronic Kidney Disease CKD Enroll Outpatient (Routine) - Closed Specialty Diagnoses / Procedures Referred By Contact Refer red To Contact Nephrology and Ellen Rangel [facility] ramy Hypertension Sada [address] [place] [phone] Referral ID Status Reason Start Date Expiration Date Visits Requ ested Visits Authorized [id number] Closed 11/27/2020 11/27/2021 1 1 Encounter Details Date Type Department Care Team Description 11/29/2020 Nurse Only Division of Nephrology Ellen Rangel M.D. [address] [place] [address] [phone] Chronic Kidney 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 [address] [place] [phone] 05/23/2022 Clinical Admitting/Central Communication Scheduling 05/27/2022 Comprehensive Visit Orthopedic Surgery Markus Sams M.D., Ph.D. [address] [place] [phone] 05/29/2022 Office Visit Otorhinolaryngology Dex Matta APRN CDemetriusNDemetriusP., M.S.N. [address] [place] [phone] 05/29/2022 Office Visit Otorhinolaryngology Nadeem Maradiaga P.A.-C., M.S. [address] [place] [phone] 05/31/2022 Appointment Radiology Guilherme Matt MPAS, P.A.-C., M.S. [address] [place] [phone] 06/05/2022 Appointment Laboratory Medicine Angélica Granger P.A.-C. [address] [place] [phone] 06/19/2022 Appointment Laboratory Medicine Angélica Granger P.A.-C. [address] [place] [phone] 07/03/2022 Appointment Laboratory Medicine Angélica Granger P.A.-C. [address] [place] [phone] 07/17/2022 Appointment Laboratory Medicine Angélica Granger P.A.-C. [address] [place] [phone] 07/31/2022 Appointment Laboratory Medicine Angélica Granger P.A.-C. [address] [place] [phone] 08/14/2022 Appointment Laboratory Medicine Angélica Granger P.A.-C. [address] [place] [phone] 08/28/2022 Appointment Laboratory Medicine Angélica Granger P.A.-C. [address] [place] [phone] documented as of this encounter Visit Diagnoses Diagnosis Chronic Kidney Disease Stage 4 Glomerula r Filtration Rate 15-29 (HCC) - Primary documented in this encounter Additional Health Concerns Infection Onset Date Last Indicated Resolved Time COVID19 Pending 01/04/2021 01/04/2021 01/04/2021 9:44 PM CDT COVID19 Pending 05/23/2021 05/23/2021 05/23/2021 11:53 AM OPTICS TECHNICAL OFFICER COVID19 Pending 05/31/2021 05/31/2021 05/31/2021 3:24 PM OPTICS TECHNICAL OFFICER Assessment Noted Time PHQ-9 Depression Total Score: 4 11/28/2020 10:17 AM CD T documented as of this encounter Care Teams Stone Breaker Relationship Specialty Start Date End Date Elsewhere, Pcp PCP - General Family Medicine 07/29/17 [facility] - Laboratory Medicine 04/12/[address] [address] documented as of this encounter
--- OUTSIDE RECORDS SUMMARY | 2022-05-17 18:43 | XMS_ITS | Encounter Summary ---
:1955 Author Organization [facility] Address [address] [place] [address] Care Team Providers Name Role Phone Elsewhere, Pcp Primary Care Provider Unavailable Reason for Visit Appointment Request (Routine) - Closed Specialty Diagnoses / Procedures Referred By Contact Refer red To Contact Referral ID Status Reason Start Date Expiration Date Visits Requ ested Visits Authorized [id number] Closed 12/12/2020 12/12/2021 1 1 Encounter Details Date Type Department Care Team Description 12/14/2020 Nurse Only Department of Dermatology in [place] Carroll M.D. 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 - 12/14/2020 1:20 PM CDT Patient returns for wound exam status post ED&C for Derm Diagnosis: Squamous Cell Carcinoma by Dr. Dorene Cruz ([id number]) on November 30, 2020 to [facility]. Patient discussed and seen with supervising groundwater consultant Supervising Physician:Derm Surgeons: Dr. Dorene Cruz ([id number]) and Dr. Mingo Aguila came to evaluate [...] Laboratory Medicine Angélica Granger P.A.-C. [address] [place] [phone] 05/23/2022 Clinical Admitting/Central Communication Scheduling 05/27/2022 Comprehensive Visit Orthopedic Surgery Markus Sams M.D., Ph.D. [address] [place] [phone] 05/29/2022 Office Visit Otorhinolaryngology Dex Matta APRN CDemetriusNDemetriusP., M.S.N. [address] [place] [phone] 05/29/2022 Office Visit Otorhinolaryngology Nadeem Maradiaga, Jennifer., M.S. [address] [place] [phone] 05/31/2022 Appointment Radiology Guilherme Matt, RASTA, Jennifer., M.S. [address] [place] [phone] 06/05/2022 Appointment Laboratory Medicine Angélica Granger P.A.-C. [address] [place] [phone] 06/19/2022 Appointment Laboratory Medicine Angélica Granger P.A.-C. [address] [place] [phone] 07/03/2022 Appointment Laboratory Medicine Angélica Granger P.A.-C. [address] [place] [phone] 07/17/2022 Appointment Laboratory Medicine Angélica Granger P.A.-C. [address] [place] [phone] 07/31/2022 Appointment Laboratory Medicine Angélica Granger P.A.-C. [address] [place] [phone] 08/14/2022 Appointment Laboratory Medicine Angélica Granger P.A.-C. [address] [place] [phone] 08/28/2022 Appointment Laboratory Medicine Angélica Granger P.A.-C. [address] [place] [phone] documented as of this encounter Visit Diagnoses Not on filedocumented in this encounter Additional Health Concerns Assessment Noted Time PHQ-9 Depression Total Score: 4 11/28/2020 10:17 AM CD T documented as of this encounter Care Teams Feller Machine Operator Relationship Specialty Start Date End Date Elsewhere, Pcp PCP - General Family Medicine 07/29/17 [facility] - Laboratory Medicine 04/12/[address] [address] documented as of this encounter
--- OUTSIDE RECORDS SUMMARY | 2022-05-17 18:43 | XMS_ITS | Encounter Summary ---
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 [address] [place] [phone] 05/23/2022 Clinical Admitting/Central Communication Scheduling 05/27/2022 Comprehensive Visit Orthopedic Surgery Markus Sams M.D., Ph.D. [address] [place] [phone] 05/29/2022 Office Visit Otorhinolaryngology Dex Matta APRN, C.N.P., M.S.N. [address] [place] [phone] 05/29/2022 Office Visit Otorhinolaryngology Nadeem Maradiaga, P.A.-Arley., M.S. [address] [place] [phone] 05/31/2022 Appointment Radiology Guilherme Matt, RASTA, P.Murtaza.Marie., M.S. [address] [place] [phone] 06/05/2022 Appointment Laboratory Medicine Angélica Granger P.A.-C. [address] [place] [phone] 06/19/2022 Appointment Laboratory Medicine Angélica Granger P.A.-C. [address] [place] [phone] 07/03/2022 Appointment Laboratory Medicine Angélica Granger P.A.-C. [address] [place] [phone] 07/17/2022 Appointment Laboratory Medicine Angélica Granger P.A.-C. [address] [place] [phone] 07/31/2022 Appointment Laboratory Medicine Angélica Granger P.A.-C. [address] [place] [phone] 08/14/2022 Appointment Laboratory Medicine Angélica Granger P.A.-C. [address] [place] [phone] 08/28/2022 Appointment Laboratory Medicine Angélica Granger P.A.-C. [address] [place] [phone] documented as of this encounter Procedures Procedure [...] Address City/State/ZIP Code Phon [id number] documented in this encounter Visit Diagnoses Not on filedocumented in this encounter Additional Health Concerns Assessment Noted Time PHQ-9 Depression Total Score: 4 11/28/2020 10:17 AM CD T documented as of this encounter Care Teams Professor Of Counseling Relationship Specialty Start Date End Date Elsewhere, Pcp PCP - General Family Medicine 07/29/17 [facility] - Laboratory Medicine 04/12/20 [place] [address] documented as of this encounter
--- OUTSIDE RECORDS SUMMARY | 2022-05-17 18:43 | XMS_ITS | Encounter Summary ---
:1955 Author Organization [facility] Address [address] [place] [address] Care Team Providers Name Role Phone Elsewhere, Pcp Primary Care Provider Unavailable Reason for Referral Medication Prior Authorization - Authorized Specialty Diagnoses / Procedures Referred By Contact Refer red To Contact Ellen Rangel M .D. 200 [place] [phone] Referral ID Status Reason Start Date Expiration Date Visits V isits Requested Authorized [id number] Authorized 1 1 Reason for Visit Appointment Request (Routine) - Closed Specialty Diagnoses / Procedures Referred By Contact Refer red To Contact Transplant Diagnoses Failure Renal Referral ID Status Reason Start Date Expiration Date Visits Requ ested Visits Authorized [id number] Closed 09/01/2020 09/01/2021 2 1 Encounter Details Date Type Department Care Team Description 11/29/2020 Office Visit [facility], Pretr ansplant Recipient Evaluation Exam (Primary Dx); [facility] 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 He met social worker psychiatric or psychosocial assessment. printed circuit board reworker has given him PACT 2/4 and SIPAT [...] seen Dermatology on 11/28/20. No recurrence. 16. [facility] renal imaging if on dialysis >3 years: [...] Laboratory Medicine Angélica Granger P.A.-C. [address] [place] [phone] 05/23/2022 Clinical Admitting/Central Communication Scheduling 05/27/2022 Comprehensive Visit Orthopedic Surgery Markus Sams M.D., Ph.D. [address] [place] [phone] 05/29/2022 Office Visit Otorhinolaryngology Dex Matta APRN, CDemetriusNDemetriusP., M.S.N. [address] [place] [phone] 05/29/2022 Office Visit Otorhinolaryngology Nadeem Maradiaga, PMaryanne., M.S. [address] [place] [phone] 05/31/2022 Appointment Radiology Guilherme Matt, RASTA, Jennifer., M.S. [address] [place] [phone] 06/05/2022 Appointment Laboratory Medicine Angélica Granger P.A.-C. [address] [place] [phone] 06/19/2022 Appointment Laboratory Medicine Angélica Granger P.A.-C. [address] [place] [phone] 07/03/2022 Appointment Laboratory Medicine Angélica Granger P.A.-C. [address] [place] [phone] 07/17/2022 Appointment Laboratory Medicine Angélica Granger P.A.-C. [address] [place] [phone] 07/31/2022 Appointment Laboratory Medicine Angélica Granger P.A.-C. [address] [place] [phone] 08/14/2022 Appointment Laboratory Medicine Angélica Granger P.A.-C. [address] [place] [phone] 08/28/2022 Appointment Laboratory Medicine Angélica Granger P.A.-C. [address] [place] [phone] documented as of this encounter Visit Diagnoses [...] documented as of this encounter Care Teams Circular Saw Filer Relationship Specialty Start Date End Date Elsewhere, Pcp PCP - General Family Medicine 07/29/17 [facility] - Laboratory Medicine 04/12/[address] [address] documented as of this encounter
--- OUTSIDE RECORDS SUMMARY | 2022-05-17 18:43 | XMS_ITS | Encounter Summary ---
:1955 Author Organization [facility] Address 200 [place] [address] Care Team Providers Name Role Phone Elsewhere, Pcp Primary Care Provider Unavailable Reason for Referral Outpatient (Routine) - Closed Specialty Diagnoses / Procedures Referred By Contact Refer red To Contact Nutrition Diagnoses Chronic Kidney Disease Stage 4 Glomerular Filtration Rate 15-29 (HCC) [facility] C.N.P[facility] D.N.P. 200 [place] [address] Referral ID Status Reason Start Date Expiration Date Visits Requ ested Visits Authorized [id number] Closed 12/28/2020 12/28/2021 1 1 Scheduling Instructions This appointment should ideally be sched uled AFTER the Reference Assistant Consults, but must at least be scheduled 48 hours afte r 24-hour urine collection is complete. Virtual visit is acceptable for this titian visit. Reason for Visit Reason Comments Chronic Kidney Disease Outpatient (Routine) - Closed Specialty Diagnoses / Procedures Referred By Contact Refer red To Contact [facility]phrology [facility] ion Hypertension RAMONA, C.N.P., M.S.N. 200 [place] [address] Referral ID Status Reason Start Date Expiration Date Visits Requ ested Visits Authorized [id number] Closed 11/29/2020 11/29/2021 1 1 Encounter Details Date Type Department Care Team Description 12/28/2020 Office Visit Division of Nephrology Eve Garcia Chronic Kidney and Hypertension in M, TRAINING MANAGER, C.N.P., Dise ase Stage 4 [place], [place] D.N.P. 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 - 12/28/2020 10:00 AM CDT 1. Start Aranesp injections for hemoglobin-will be in [place] 2. Start going to chronic kidney disease clinic in [place] 3. Vein mapping appointment to check arm [...] Contact the Chronic Kidney Disease [facility] at [phone] if you have concerns regarding your kidneyor high blood pressure care. Please use our fax number #[phone] if you are requested by your kidney [...] 4. Most recent labs were done at [facility] on 12/26/2020 and are available in Care [...] He has had a tour of the [facility] dialysis unit. Review of Systems Constitutional: [...] will start Aranesp to be given at [place] 60 mcg subcu every 4 weeks hold if hemoglobin greaterthan 11 g/dL. I have reviewed his iron studies from this week that were done in [place]. #5 Hyperparathyroidism, renal secondary PTH 64 on [...] Follow-up: Aranesp injections will be started in [place]. Renal profile will be done next in [...] Laboratory Medicine Angélica Granger P.A.-C. [address] [place] [phone] 05/23/2022 Clinical Admitting/Central Communication Scheduling 05/27/2022 Comprehensive Visit Orthopedic Surgery Markus Sams M.D., Ph.D. [address] [place] [phone] 05/29/2022 Office Visit Otorhinolaryngology Dex Matta APRN CDemetriusNJuan Miguel, M.S.N. [address] [place] [phone] 05/29/2022 Office Visit Otorhinolaryngology Nadeem Maradiaga, Jennifer., M.S. [address] [place] [phone] 05/31/2022 Appointment Radiology Guilherme Matt, RASTA, Edmundo, M.S. [address] [place] [phone] 06/05/2022 Appointment Laboratory Medicine Angélica Granger P.A.-C. [address] [place] [phone] 06/19/2022 Appointment Laboratory Medicine Angélica Granger P.A.-C. [address] [place] [phone] 07/03/2022 Appointment Laboratory Medicine Angélica Granger P.A.-C. [address] [place] [phone] 07/17/2022 Appointment Laboratory Medicine Angélica Granger P.A.-C. [address] [place] [phone] 07/31/2022 Appointment Laboratory Medicine Angélica Granger P.A.-C. [address] [place] [phone] 08/14/2022 Appointment Laboratory Medicine Angélica Granger P.A.-C. [address] [place] [phone] 08/28/2022 Appointment Laboratory Medicine Angélica Granger P.A.-C. [address] [place] [phone] Scheduled Referrals Name Type Priority Associated Order [...] documented as of this encounter Care Teams Ion Exchange Operator Relationship Specialty Start Date End Date Elsewhere, Pcp PCP - General Family Medicine 07/29/17 [facility] - Laboratory Medicine 04/12/[address] [address] documented as of this encounter
--- OUTSIDE RECORDS SUMMARY | 2022-05-17 18:43 | XMS_ITS | Encounter Summary ---
:1955 Author Organization [facility] Address [address] [place] [address] Care Team Providers Name Role Phone Elsewhere, Pcp Primary Care Provider Unavailable Reason for Visit Reason Comments Med Refill Encounter Details Date Type Department Care Team Description 12/12/2020 Refill Curt Rene [facility] for [facility], Med Refill Transplantation and Clinical M.S .N., R.N., C.C.T.C. 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 [address] [place] [phone] 05/23/2022 Clinical Admitting/Central Communication Scheduling 05/27/2022 Comprehensive Visit Orthopedic Surgery Markus Sams M.D., Ph.D. [address] [place] [address] [phone] 05/29/2022 Office Visit Otorhinolaryngology Dex Matta APRN, C.N.P., M.S.N. [address] [place] [address] [phone] 05/29/2022 Office Visit Otorhinolaryngology Nadeem Maradiaga, P.A.-Arley., M.S. [address] [place] [phone] 05/31/2022 Appointment Radiology Guilherme Matt MPAS, PEdgar.Marie., M.S. [address] [place] [phone] 06/05/2022 Appointment Laboratory Medicine Angélica Granger P.A.-C. [address] [place] [phone] 06/19/2022 Appointment Laboratory Medicine Angélica Granger P.A.-C. [address] [place] [phone] 07/03/2022 Appointment Laboratory Medicine Angélica Granger P.A.-C. [address] [place] [phone] 07/17/2022 Appointment Laboratory Medicine Angélica Granger P.A.-C. [address] [place] [phone] 07/31/2022 Appointment Laboratory Medicine Angélica Granger P.A.-C. [address] [place] [phone] 08/14/2022 Appointment Laboratory Medicine Angélica Granger P.A.-C. [address] [place] [phone] 08/28/2022 Appointment Laboratory Medicine Angélica Granger P.A.-C. [address] [place] [phone] documented as of this encounter Visit Diagnoses Diagnosis Transplant Liver (HCC) - Primary documented in this encounter Additional Health Concerns Assessment Noted Time PHQ-9 Depression Total Score: 4 11/28/2020 10:17 AM CD T documented as of this encounter Care Teams Communications Department Head Relationship Specialty Start Date End Date Elsewhere, Pcp PCP - General Family Medicine 07/29/17 [facility] - Laboratory Medicine 04/12/[address] [address] documented as of this encounter
--- OUTSIDE RECORDS SUMMARY | 2022-05-17 18:43 | XMS_ITS | Encounter Summary ---
:1955 Author Organization [facility] Address [address] [place] [address] Care Team Providers Name Role Phone Elsewhere, Pcp Primary Care Provider Unavailable Reason for Referral Outpatient (Routine) - Closed Specialty Diagnoses / Procedures Referred By Contact Refer red To Contact Diagnoses Cough Unspecified Type Pneumonitis Due To Inhalation Of Food And Vomit (HCC) [facility] Procedures FL Swallow Function with Video and Speech or OT M.B.B.S. 200 [place], [place] [address] Referral ID Status Reason Start Date Expiration Date Visits Requ ested Visits Authorized [id number] Closed 10/13/2020 10/13/2021 1 1 Reason for Visit Outpatient (Routine) - Closed Specialty Diagnoses / Procedures Referred By Contact Refer red To Contact Diagnoses Cough Unspecified Type Pneumonitis Due To Inhalation Of Food And Vomit (HCC) Connie Aaron [facility] Procedures FL Swallow Function with Video and Speech or OT M.B.B.S. 200 [place], [place] [address] Referral ID Status Reason Start Date Expiration Date Visits Requ ested Visits Authorized [id number] Closed 10/13/2020 10/13/2021 1 1 Encounter Details Date Type Department Care Team Description 11/29/2020 Hospital Encounter Department of Zeeshan Aaron M.B.B.S. 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 Medication Therapy Circulation Assistant Not Anticoagulant sodium chloride USE 4 ML VIA 0 08/30/2020 021 (NEBUSAL) 3 % nebulizer NEBULIZER TWICE solution DAILY tacrolimus (PROGRAF) Take 2 capsules (1 360 capsule 3 202007/16/2021 0.5 mg mg total) by mouth 2 capsuleIndications: (two) times a day. Transplant Liver (HCC), Medication Therapy Senior Care Not Anticoagulant torsemide (DEMADEX) 10 Take 3 tablets (30 270 tablet 3 05/2202/22/2021 mg tablet mg total) by mouth daily. documented as of this encounter Plan of Treatment Upcoming Encounters Date Type Specialty Care Team Description 05/22/2022 Appointment Laboratory Medicine Angélica Granger P.A.-C. [address] [place] [address] 05/23/2022 Clinical Admitting/Central Communication Scheduling 05/27/2022 Comprehensive Visit Orthopedic Surgery Markus Sams M.D., Ph.D. [address] [place] [phone] 05/29/2022 Office Visit Otorhinolaryngology Dex Matta APRN, C.N.P., M.S.N. [address] [place] [phone] 05/29/2022 Office Visit Otorhinolaryngology Nadeem Maradiaga P.A.-C., M.S. [address] [place] [phone] 05/31/2022 Appointment Radiology Guilherme Matt, RASTA, Edmundo, M.S. [address] [place] [phone] 06/05/2022 Appointment Laboratory Medicine Angélica Granger P.A.-C. [address] [place] [phone] 06/19/2022 Appointment Laboratory Medicine Angélica Granger P.A.-C. [address] [place] [phone] 07/03/2022 Appointment Laboratory Medicine Angélica Granger P.A.-C. [address] [place] [phone] 07/17/2022 Appointment Laboratory Medicine Angélica Granger P.A.-C. [address] [place] [phone] 07/31/2022 Appointment Laboratory Medicine Angélica Granger P.A.-C. [address] [place] [phone] 08/14/2022 Appointment Laboratory Medicine Angélica Granger P.A.-C. [address] [place] [phone] 08/28/2022 Appointment Laboratory Medicine Angélica Granger P.A.-C. [address] [place] [phone] documented as of this encounter Procedures Procedure Name Priority Date/Time Associated Comments Diagnosis FL SWALLOW RAD - Routine 11/29/2020 1:40 Cough Results for this FUNCTION WITH (most inpatients PM CDT Pneumonitis Due procedu re are in VIDEO AND SPEECH and all To Inhalation Of the res ults OR OT FOR RST outpatients) Food And Vomit section. (HCC) documented in this encounter Results FL Swallow [...] for additional details and recommendations. Connie Barron IMAutumn FLUOROSCOPY PROCEDURES documented in this encounter [...] documented as of this encounter Care Teams Geoscience Technician Relationship Specialty Start Date End Date Elsewhere, Pcp PCP - General Family Medicine 07/29/17 [facility] - Laboratory Medicine 04/12/20 [place] [phone] documented as of this encounter
--- OUTSIDE RECORDS SUMMARY | 2022-05-17 18:43 | XMS_ITS | Encounter Summary ---
:1955 Author Organization [facility] Address [address] [place] [address] Care Team Providers Name Role Phone Elsewhere, Pcp Primary Care Provider Unavailable Reason for Referral Outpatient (Routine) - Closed Specialty Diagnoses / Procedures Referred By Contact Refer red To Contact Otorhinolaryngology Diagnoses Cerumen Impacted Bilateral Dotty Burrows [facility] Edmundo [address] [place] [address] Referral ID Status Reason Start Date Expiration Date Visits V isits Requested Authorized [id number] Closed Specialty 12/26/2020 12/26/2021 1 1 Services Required Encounter Details Date Type Department Care Team Description 12/26/2020 Orders Only Department of Audi Hooks Impact ed Otorhinolaryngology in Ijeoma Cardenas R.N. Bilateral (Primary [place], [place] 200 [facility] Dx) [address] [place] [phone] Social History Tobacco Use Types Packs/Day Years [...] 12/15/2021 organizations such as faith groups, unions, [employer] or athletic groups, or school groups? 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 [address] [place] [phone] 05/23/2022 Clinical Admitting/Central Communication Scheduling 05/27/2022 Comprehensive Visit Orthopedic Surgery Markus Sams M.D., Ph.D. [address] [place] [phone] 05/29/2022 Office Visit Otorhinolaryngology Dex Matta APRN, C.N.P., M.S.N. [address] [place] [phone] 05/29/2022 Office Visit Otorhinolaryngology Nadeem Maradiaga P.A.-C., M.S. [address] [place] [phone] 05/31/2022 Appointment Radiology Guilherme Matt MPAS, P.A.-C., M.S. [address] [place] [phone] 06/05/2022 Appointment Laboratory Medicine Angélica Granger P.A.-C. [address] [place] [phone] 06/19/2022 Appointment Laboratory Medicine Angélica Granger P.A.-C. [address] [place] [phone] 07/03/2022 Appointment Laboratory Medicine Angélica Granger P.A.-C. [address] [place] [phone] 07/17/2022 Appointment Laboratory Medicine Angélica Granger P.A.-C. [address] [place] [phone] 07/31/2022 Appointment Laboratory Medicine Angélica Granger P.A.-C. [address] [place] [phone] 08/14/2022 Appointment Laboratory Medicine Angélica Granger P.A.-C. [address] [place] [phone] 08/28/2022 Appointment Laboratory Medicine Angélica Granger P.A.-C. [address] [place] [phone] Scheduled Referrals Name Type Priority Associated Order [...] documented as of this encounter Care Teams Poultry Inseminator Relationship Specialty Start Date End Date Elsewhere, Pcp PCP - General Family Medicine 07/29/17 [facility] - Laboratory Medicine 04/12/[address] [address] documented as of this encounter
--- OUTSIDE RECORDS SUMMARY | 2022-05-17 18:43 | XMS_ITS | Encounter Summary ---
:1955 Author Organization [facility] Address [address] [place] [address] Care Team Providers Name Role Phone Elsewhere, Pcp Primary Care Provider Unavailable Reason for Visit Speech Pathology (Routine) - Closed Specialty Diagnoses / Procedures Referred By Contact Refer red To Contact Diagnoses Cough Unspecified Type Pneumonitis Due To Inhalation Of Food And Vomit (HCC) [facility] PEOPLESOFT TALEO MANAGER Dysphagia evaluate and treat M.B.B.S. [address] [place] [phone] Referral ID Status Reason Start Date Expiration Date Visits Requ ested Visits Authorized [id number] Closed 10/13/2020 10/13/2021 99 99 Encounter Details Date Type Department Care Team Description 11/29/2020 Comprehensive Visit Department of Genesis Aaron M.B.B.S. 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 documented in this encounter Plan of Treatment Upcoming Encounters Date Type Specialty Care Team Description 05/22/2022 Appointment Laboratory Medicine Angélica Granger P.A.-C. [address] [place] [phone] 05/23/2022 Clinical Admitting/Central Communication Scheduling 05/27/2022 Comprehensive Visit Orthopedic Surgery Markus Sams M.D., Ph.D. [address] [place] [phone] 05/29/2022 Office Visit Otorhinolaryngology Dex Matta APRN, C.N.P., M.S.N. [address] [place] [phone] 05/29/2022 Office Visit Otorhinolaryngology Nadeem Maradiaga, Jennifer., M.S. [address] [place] [phone] 05/31/2022 Appointment Radiology Guilherme Matt, Edmundo MAGDALENO, M.S. [address] [place] [phone] 06/05/2022 Appointment Laboratory Medicine Angélica Granger P.A.-C. [address] [place] [phone] 06/19/2022 Appointment Laboratory Medicine Angélica Granger P.A.-C. [address] [place] [phone] 07/03/2022 Appointment Laboratory Medicine Angélica Granger P.A.-C. [address] [place] [phone] 07/17/2022 Appointment Laboratory Medicine Angélica Granger P.A.-C. [address] [place] [phone] 07/31/2022 Appointment Laboratory Medicine Angélica Granger P.A.-C. [address] [place] [phone] 08/14/2022 Appointment Laboratory Medicine Angélica Granger P.A.-C. [address] [place] [phone] 08/28/2022 Appointment Laboratory Medicine Angélica Granger P.A.-C. [address] [place] [phone] documented as of this encounter Visit Diagnoses [...] [facility] - Laboratory Medicine 04/12/20 [place] [address] documented as of this encounter
--- OUTSIDE RECORDS SUMMARY | 2022-05-17 18:43 | XMS_ITS | Encounter Summary ---
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 [address] [place] [phone] 05/23/2022 Clinical Admitting/Central Communication Scheduling 05/27/2022 Comprehensive Visit Orthopedic Surgery Markus Sams M.D., Ph.D. [address] [place] [phone] 05/29/2022 Office Visit Otorhinolaryngology Dex Matta APRN, C.N.P., M.S.N. [address] [place] [phone] 05/29/2022 Office Visit Otorhinolaryngology Nadeem Maradiaga P.A.-C., M.S. [address] [place] [phone] 05/31/2022 Appointment Radiology Guilherme Matt MPAS, P.A.-C., M.S. [address] [place] [phone] 06/05/2022 Appointment Laboratory Medicine Angélica Granger P.A.-C. [address] [place] [phone] 06/19/2022 Appointment Laboratory Medicine Angélica Granger P.A.-C. [address] [place] [phone] 07/03/2022 Appointment Laboratory Medicine Angélica Granger P.A.-C. [address] [place] [phone] 07/17/2022 Appointment Laboratory Medicine Angélica Granger P.A.-C. [address] [place] [phone] 07/31/2022 Appointment Laboratory Medicine Angélica Granger P.A.-C. [address] [place] [phone] 08/14/2022 Appointment Laboratory Medicine Angélica Granger P.A.-C. [address] [place] [phone] 08/28/2022 Appointment Laboratory Medicine Angélica Granger P.A.-C. [address] [place] [phone] documented as of this encounter Visit Diagnoses Not on filedocumented in this encounter Additional Health Concerns Assessment Noted Time PHQ-9 Depression Total Score: 4 11/28/2020 10:17 AM CD T documented as of this encounter Care Teams Buffing Wheel Operator Relationship Specialty Start Date End Date Elsewhere, Pcp PCP - General Family Medicine 07/29/17 [facility] - Laboratory Medicine 04/12/20 [place] [phone] documented as of this encounter
--- OUTSIDE RECORDS SUMMARY | 2022-05-17 18:44 | XMS_ITS | Encounter Summary ---
:1955 Author Organization [facility] Address [address] [place] [address] Care Team Providers Name Role Phone Elsewhere, Pcp Primary Care Provider Unavailable Reason for Visit Physical Therapy (Routine) - Closed Specialty Diagnoses / Procedures Referred By Contact Refer red To Contact Diagnoses Pretransplant Recipient Evaluation Exam Chronic Kidney Disease Stage 4 Glomerular Filtration Rate 15-29 (HCC) Akin Chavez M.D. [facility] Procedures PT Evaluate and treat [address] [place] [phone] Referral ID Status Reason Start Date Expiration Date Visits Requ ested Visits Authorized [id number] Closed 09/15/2020 09/15/2021 99 99 Encounter Details Date Type Department Care Team Description 11/29/2020 Comprehensive Visit Department of Physical Akin Chavez M.D. [address] [place] [phone] Pretransplant Recipient Evaluation Exam; Sofia and Shelli Rodriguez P.T., D.P.T., A.T.C. [address] [place] [phone] Chronic Kidney Disease Stage 4 Glomerula r Filtration Rate 15-29 (HCC) Rehabilitation in [place], [place] [address] [place] [phone] Social History Tobacco Use Types Packs/Day Years [...] 12/15/2021 organizations such as adventist groups, unions, fra[employer] or athletic groups, or school groups? 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 Prior Function/Occupational Profile: Level of [place]: indpendent with all daily activities but requiring [...] No Special Tests: Pre-transplant Screen FRAILTY INDEX: Senior Science Consultant Strength score: 33 kg right 0 = [...] SHORT PHYSICAL PERFORMANCE BATTERY (SPPB) Balance Testing Blyg-eq-Acjl Stand: 1 = Hold for 10 sec [...] Time (min): 19 min Shelli Rodriguez P.T., Bashir.P.T. documented in this encounter Plan of Treatment Upcoming Encounters Date Type Specialty Care Team Description 05/22/2022 Appointment Laboratory Medicine Angélica Granger P.A.-C. [address] [place] [phone] 05/23/2022 Clinical Admitting/Central Communication Scheduling 05/27/2022 Comprehensive Visit Orthopedic Surgery Markus Sams M.D., Ph.D. [address] [place] [phone] 05/29/2022 Office Visit Otorhinolaryngology Dex Matta APRN, C.N.P., M.S.N. [address] [place] [address] [phone] 05/29/2022 Office Visit Otorhinolaryngology Nadeem Maradiaga, Jennifer., M.S. [address] [place] [address] [phone] 05/31/2022 Appointment Radiology Guilherme Matt MPAS, Jennifer., M.S. [address] [place] [address] [phone] 06/05/2022 Appointment Laboratory Medicine Angélica Granger P.A.-C. [address] [place] [address] [phone] 06/19/2022 Appointment Laboratory Medicine Angélica Granger P.A.-C. [address] [place] [phone] 07/03/2022 Appointment Laboratory Medicine Angélica Granger P.A.-C. [address] [place] [phone] 07/17/2022 Appointment Laboratory Medicine Angélica Granger P.A.-C. [address] [place] [phone] 07/31/2022 Appointment Laboratory Medicine Angélica Granger P.A.-C. [address] [place] [phone] 08/14/2022 Appointment Laboratory Medicine Angélica Granger P.A.-C. [address] [place] [phone] 08/28/2022 Appointment Laboratory Medicine Angélica Granger P.A.-C. [address] [place] [phone] documented as of this encounter Visit Diagnoses Diagnosis Pretransplant Recipient Evaluation Exam Chronic Kidney Disease Stage 4 Glomerula r Filtration Rate 15-29 (HCC) documented in this encounter Additional Health Concerns Assessment Noted Time PHQ-9 Depression Total Score: 4 11/28/2020 10:17 AM CD T documented as of this encounter Care Teams Museum Tour Guide Relationship Specialty Start Date End Date Elsewhere, Pcp PCP - General Family Medicine 07/29/17 [facility] - Laboratory Medicine 04/12/[address] [address] documented as of this encounter
--- OUTSIDE RECORDS SUMMARY | 2022-05-17 18:44 | XMS_ITS | Encounter Summary ---
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 [address] [place] [phone] 05/23/2022 Clinical Admitting/Central Communication Scheduling 05/27/2022 Comprehensive Visit Orthopedic Surgery Markus Sams M.D., Ph.D. [address] [place] [phone] 05/29/2022 Office Visit Otorhinolaryngology Dex Matta APRN, C.N.P., M.S.N. [address] [place] [phone] 05/29/2022 Office Visit Otorhinolaryngology Nadeem Maradiaga P.A.-C., M.S. [address] [place] [phone] 05/31/2022 Appointment Radiology Guilherme Matt MPAS, P.A.-C., M.S. [address] [place] [phone] 06/05/2022 Appointment Laboratory Medicine Angélica Granger P.A.-C. [address] [place] [phone] 06/19/2022 Appointment Laboratory Medicine Angélica Granger P.A.-C. [address] [place] [phone] 07/03/2022 Appointment Laboratory Medicine Angélica Granger P.A.-C. [address] [place] [phone] 07/17/2022 Appointment Laboratory Medicine Angélica Granger P.A.-C. [address] [place] [phone] 07/31/2022 Appointment Laboratory Medicine Angélica Granger P.A.-C. [address] [place] [phone] 08/14/2022 Appointment Laboratory Medicine Angélica Granger P.A.-C. [address] [place] [phone] 08/28/2022 Appointment Laboratory Medicine Angélica Granger P.A.-C. [address] [place] [phone] documented as of this encounter Visit Diagnoses [...] as of this encounter Care Teams Ornamental Machine Operator Relationship Specialty Start Date End Date Elsewhere, Pcp PCP - General Family Medicine 07/29/17 [facility] - Laboratory Medicine 04/12/[address] [address] documented as of this encounter
--- OUTSIDE RECORDS SUMMARY | 2022-05-17 18:44 | XMS_ITS | Encounter Summary ---
:1955 Author Organization [facility] Address [address] [place] [address] Care Team Providers Name Role Phone Elsewhere, Pcp Primary Care Provider Unavailable Reason for Referral Outpatient (Routine) - Closed Specialty Diagnoses / Procedures Referred By Contact Refer red To Contact Diagnoses Pretransplant Recipient Evaluation Exam Chronic Kidney Disease Stage 4 Glomerular Filtration Rate 15-29 (HCC) Akin Chavez M.D. [facility] Procedures Echo Stress [address] [place], [place] [phone] Referral ID Status Reason Start Date Expiration Date Visits Requ ested Visits Authorized [id number] Closed 09/15/2020 09/15/2021 1 1 Reason for Visit Outpatient (Routine) - Closed Specialty Diagnoses / Procedures Referred By Contact Refer red To Contact Diagnoses Pretransplant Recipient Evaluation Exam Chronic Kidney Disease Stage 4 Glomerular Filtration Rate 15-29 (HCC) Akin Chavez M.D. [facility] Procedures Echo Stress [address] [place], [place] [phone] Referral ID Status Reason Start Date Expiration Date Visits Requ ested Visits Authorized [id number] Closed 09/15/2020 09/15/2021 1 1 Encounter Details Date Type Department Care Team Description 11/28/2020 Hospital Encounter Department of Akin Chavez Pretrans plant Recipient Evaluation Exam; Cardiovascular Diseases Sada Osborn Chronic Kidney Disease Stage 4 Glomerula r Filtration Rate 15-29 (HCC) in 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 Medication Therapy Snf Not Anticoagulant sodium chloride USE 4 ML VIA 0 08/30/2020 021 (NEBUSAL) 3 % nebulizer NEBULIZER TWICE solution DAILY tacrolimus (PROGRAF) Take 2 capsules (1 360 capsule 3 202007/16/2021 0.5 mg mg total) by mouth 2 capsuleIndications: (two) times a day. Transplant Liver (HCC), Medication Therapy Speech Assistant Not Anticoagulant torsemide (DEMADEX) 10 Take 3 tablets (30 270 tablet 3 05/2202/22/2021 mg tablet mg total) by mouth daily. documented as of this encounter Plan of Treatment Upcoming Encounters Date Type Specialty Care Team Description 05/22/2022 Appointment Laboratory Medicine Angélica Granger P.A.-C. [address] [place] [phone] 05/23/2022 Clinical Admitting/Central Communication Scheduling 05/27/2022 Comprehensive Visit Orthopedic Surgery Markus Sams M.D., Ph.D. [address] [place] [phone] 05/29/2022 Office Visit Otorhinolaryngology Dex Matta APRN, CDemetriusNFabrice., M.S.N. [address] [place] [phone] 05/29/2022 Office Visit Otorhinolaryngology Nadeem Maradiaga, Edmundo, M.S. [address] [place] [phone] 05/31/2022 Appointment Radiology Guilherme Matt MPAS, P.A.-C., M.S. [address] [place] [phone] 06/05/2022 Appointment Laboratory Medicine Angélica Granger P.A.-C. [address] [place] [phone] 06/19/2022 Appointment Laboratory Medicine Angélica Granger P.A.-C. [address] [place] [phone] 07/03/2022 Appointment Laboratory Medicine Angélica Granger P.A.-C. [address] [place] [phone] 07/17/2022 Appointment Laboratory Medicine Angélica Granger P.A.-C. [address] [place] [phone] 07/31/2022 Appointment Laboratory Medicine Angélica Granger P.A.-C. [address] [place] [phone] 08/14/2022 Appointment Laboratory Medicine Angélica Granger P.A.-C. [address] [place] [phone] 08/28/2022 Appointment Laboratory Medicine Angélica Granger P.A.-C. [address] [place] [phone] documented as of this encounter Procedures Procedure Name Priority Date/Time Associated Diagnosis Comme nts ECHO STRESS 2D Routine 11/28/2020 1:51 PM Pretransplant Result s for this ONLY CDT Recipient Evaluation procedu re are in Exam the results Chronic Kidney Disease secti on. Stage 4 Glomerular Filtration Rate 15-29 (HCC) documented in this encounter Results ECHO STRESS 2D ONLY (11/28/2020 1:51 PM CDT) [facility] Method Time Signature Ejection Fraction 60 [...] For the complete report, see the Order-L lisa Documents. Narrative 11/28/2020 2:53 PM CDT For [...] documented as of this encounter Care Teams Athletic Shoe Designer Relationship Specialty Start Date End Date Elsewhere, Pcp PCP - General Family Medicine 07/29/17 [facility] - Laboratory Medicine 04/12/[address] [address] documented as of this encounter
--- OUTSIDE RECORDS SUMMARY | 2022-05-17 18:44 | XMS_ITS | Encounter Summary ---
:1955 Author Organization [facility] Address [address] [place] [address] Care Team Providers Name Role Phone Elsewhere, Pcp Primary Care Provider Unavailable Reason for Visit Appointment Request (Routine) - Closed Specialty Diagnoses / Procedures Referred By Contact Refer red To Contact Transplant Diagnoses Aftercare Transplant Liver (HCC) [facility] Procedures Referral ID Status Reason Start Date Expiration Date Visits Requ ested Visits Authorized [id number] Closed 05/08/2020 05/08/2021 1 1 Encounter Details Date Type Department Care Team Description 11/28/2020 Office Visit Angélica Ching Trans plant Liver (HCC); [facility] J, P. A.-C. 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 CT CT Job ID: [id number] documented in this encounter Plan of Treatment Upcoming Encounters Date Type Specialty Care Team Description 05/22/2022 Appointment Laboratory Medicine Angélica Granger P.A.-C. [address] [place] [phone] 05/23/2022 Clinical Admitting/Central Communication Scheduling 05/27/2022 Comprehensive Visit Orthopedic Surgery Markus Sams M.D., Ph.D. [address] [place] [phone] 05/29/2022 Office Visit Otorhinolaryngology Dex Matta APRN, C.N.P., M.S.N. [address] [place] [phone] 05/29/2022 Office Visit Otorhinolaryngology Nadeem Maradiaga, Jennifer., M.S. [address] [place] [address] [phone] 05/31/2022 Appointment Radiology Guilherme Matt, RASTA, Jennifer., M.S. [address] [place] [phone] 06/05/2022 Appointment Laboratory Medicine Angélica Granger P.A.-C. [address] [place] [phone] 06/19/2022 Appointment Laboratory Medicine Angélica Granger P.A.-C. [address] [place] [phone] 07/03/2022 Appointment Laboratory Medicine Angélica Granger P.A.-C. [address] [place] [phone] 07/17/2022 Appointment Laboratory Medicine Angélica Granger P.A.-C. [address] [place] [phone] 07/31/2022 Appointment Laboratory Medicine Angélica Granger P.A.-C. [address] [place] [phone] 08/14/2022 Appointment Laboratory Medicine Angélica Granger P.A.-C. [address] [place] [phone] 08/28/2022 Appointment Laboratory Medicine Angélica Granger P.A.-C. [address] [place] [phone] documented as of this encounter Visit Diagnoses Diagnosis Transplant Liver (HCC) Medication Therapy Skilled Nursing Not Anticoa gulant Cirrhosis Cryptogenic (HCC) Screening Examination Prostate Cancer Screening Examination Skin Cancer documented in this encounter Additional Health Concerns Assessment Noted Time PHQ-9 Depression Total Score: 4 11/28/2020 10:17 AM CD T documented as of this encounter Care Teams Gauge And Instrument Inspector Relationship Specialty Start Date End Date Elsewhere, Pcp PCP - General Family Medicine 07/29/17 [facility] - Laboratory Medicine 04/12/[address] [address] documented as of this encounter
--- OUTSIDE RECORDS SUMMARY | 2022-05-17 18:44 | XMS_ITS | Encounter Summary ---
:1955 Author Organization [facility] Address [address] [place] [address] Care Team Providers Name Role Phone Elsewhere, Pcp Primary Care Provider Unavailable Reason for Referral Outpatient (Routine) - Closed Specialty Diagnoses / Procedures Referred By Contact Refer red To Contact Diagnoses Transplant Liver (HCC) Medication Therapy Crystal Syrup Maker Not Anticoagulant Cirrhosis Cryptogenic (HCC) Screening Examination Prostate Cancer Screening Examination Skin Cancer Willis Mcdermott M.D. [facility] Procedures Short renal clearance: Iothalamate (Renal Studies Unit) [address] [place], [place] [address] Referral ID Status Reason Start Date Expiration Date Visits Requ ested Visits Authorized [id number] Closed 09/14/2020 09/14/2021 1 1 Reason for Visit Outpatient (Routine) - Closed Specialty Diagnoses / Procedures Referred By Contact Refer red To Contact Diagnoses Transplant Liver (HCC) Medication Therapy Assisted Not Anticoagulant Cirrhosis Cryptogenic (HCC) Screening Examination Prostate Cancer Screening Examination Skin Cancer Willis Mcdermott M.D. [facility] Procedures Short renal clearance: Iothalamate (Renal Studies Unit) [address] [place], [place] [address] Referral ID Status Reason Start Date Expiration Date Visits Requ ested Visits Authorized [id number] Closed 09/14/2020 09/14/2021 1 1 Encounter Details Date Type Department Care Team Description 11/28/2020 Hospital Encounter Department of Willis Mcdermott Trans plant Liver (HCC); Laboratory Medicine S, Sada Medication Therapy Crystal Syrup Maker Not Anticoa gulant; and Pathology, 200 [facility] Cirrhosis Cryptogenic (HCC); [place], [place] Screening Exam ination [place] [address] Screening Examination Skin Cancer [facility] [phone] [place] (Work) 200 [facility] [phone] [place], [place] (Fax) [phone] Social History Tobacco Use [...] Date Recorded 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 Medication Therapy Assisted Not Anticoagulant sodium chloride USE 4 ML VIA 0 08/30/2020 021 (NEBUSAL) 3 % nebulizer NEBULIZER TWICE solution DAILY tacrolimus (PROGRAF) Take 2 capsules (1 360 capsule 3 202007/16/2021 0.5 mg mg total) by mouth 2 capsuleIndications: (two) times a day. Transplant Liver (HCC), Medication Therapy Crystal Syrup Maker Not Anticoagulant torsemide (DEMADEX) 10 Take 3 tablets (30 270 tablet 3 05/2202/22/2021 mg tablet mg total) by mouth daily. documented as of this encounter Plan of Treatment Upcoming Encounters Date Type Specialty Care Team Description 05/22/2022 Appointment Laboratory Medicine Angélica Granger P.A.-C. [address] [place] [phone] 05/23/2022 Clinical Admitting/Central Communication Scheduling 05/27/2022 Comprehensive Visit Orthopedic Surgery Markus Sams M.D., Ph.D. [address] [place] [phone] 05/29/2022 Office Visit Otorhinolaryngology Dex Matta APRN, C.N.P., M.S.N. [address] [place] [address] [phone] 05/29/2022 Office Visit Otorhinolaryngology Nadeem Maradiaga, P.Murtaza.-Arley., M.S. [address] [place] [phone] 05/31/2022 Appointment Radiology Guilherme Matt, RASTA, PMaryanne., M.S. [address] [place] [address] [phone] 06/05/2022 Appointment Laboratory Medicine Angélica Granger P.A.-C. [address] [place] [phone] 06/19/2022 Appointment Laboratory Medicine Angélica Granger P.A.-C. [address] [place] [address] [phone] 07/03/2022 Appointment Laboratory Medicine Angélica Granger P.A.-C. [address] [place] [phone] 07/17/2022 Appointment Laboratory Medicine Angélica Granger P.A.-C. [address] [place] [phone] 07/31/2022 Appointment Laboratory Medicine Angélica Granger P.A.-C. [address] [place] [address] [phone] 08/14/2022 Appointment Laboratory Medicine Angélica Granger P.A.-C. [address] [place] [phone] 08/28/2022 Appointment Laboratory Medicine Angélica Granger P.A.-C. [address] [place] [phone] Scheduled Orders Name Type Priority Associated Diagnoses Order S chedule Short renal clearance: Procedures Routine Transplan t Liver (HCC) Once for 1 Iothalamate (Renal Medication Therapy Occ urrences starting Studies Unit) Crystal Syrup Maker Not 11/28/2020 un til Anticoagulant 11/28/2020 Cirrhosis [...] 021 Venous) CDT 10:16 AM CDT Narrative [facility] - 11/28/2020 12:47 PM CDT Specimen Information: Specimen ID: [id number] Specimen Type: Varies Specimen Collection Start Date: ??7:22 AM Specimen Received Date: 11/28/2020 10:16 AM Specimen ID: [id number] Specimen Type: Varies Specimen Collection Start Date: ??8:27 AM Specimen Received Date: 11/28/2020 10:16 AM Specimen ID: [id number] Specimen Type: Varies Specimen Collection Start Date: ??9:14 AM Specimen Received Date: 11/28/2020 10:16 AM Specimen ID: [id number] Specimen Type: Varies Specimen Collection Start Date: ??8:31 AM Specimen Received Date: 11/28/2020 10:16 AM Specimen ID: [id number] Specimen Type: Varies Specimen Collection Start Date: ??9:18 AM Specimen Received Date: 11/28/2020 10:16 AM Matias Whitney M.D. LAB BLOOD NON ADD-ON Performing Organization Address City/State/ZIP Code Phon e Number [facility] - [address] [place] [address] [address] [place] [address] [facility] 200 [facility] documented in this encounter Visit Diagnoses Diagnosis Transplant Liver (HCC) Medication Therapy Crystal Syrup Maker Not Anticoa gulant Cirrhosis Cryptogenic (HCC) Screening [...] documented as of this encounter Care Teams Surveillance Specialist Relationship Specialty Start Date End Date Elsewhere, Pcp PCP - General Family Medicine 07/29/[address] [facility] - Laboratory Medicine 04/12/20 [place] [address] documented as of this encounter
--- OUTSIDE RECORDS SUMMARY | 2022-05-17 18:44 | XMS_ITS | Encounter Summary ---
:1955 Author Organization [facility] Address [address] [place] [address] Care Team Providers Name Role Phone Elsewhere, Pcp Primary Care Provider Unavailable Reason for Referral Outpatient (Routine) - Closed Specialty Diagnoses / Procedures Referred By Contact Refer red To Contact Nephrology and Ellen Rangel [facility] Hypertension Sada 200 [place] [address] Referral ID Status Reason Start Date Expiration Date Visits Requ ested Visits Authorized [id number] Closed 11/27/2020 11/27/2021 1 1 Outpatient (Routine) - Closed Specialty Diagnoses / Procedures Referred By Contact Refer red To Contact Pulmonary Medicine Diagnoses Bronchitis Chronic (HCC) Ellen Rangel [facility] Sada [address] [place] [address] Referral ID Status Reason Start Date Expiration Date Visits V isits Requested Authorized [id number] Closed Specialty 11/27/2020 11/27/2021 1 1 Services Required Scheduling Instructions Prefer to see Dr. Aaron. She saw him mayte aguilar. Reason for Visit Appointment Request (Routine) - Closed Specialty Diagnoses / Procedures Referred By Contact Refer red To Contact Transplant Diagnoses Failure Renal Referral ID Status Reason Start Date Expiration Date Visits Requ ested Visits Authorized [id number] Closed 09/01/2020 09/01/2021 2 1 Encounter Details Date Type Department Care Team Description 11/27/2020 Office Visit Akin Ty, Pretr ansplant Recipient Evaluation Exam (Primary Dx); [facility] M[facility]D. 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 Interstitial fibrosis with tubular atrophy affectsapproximately 30-40% [...] 20 ml/min). He was recently admitted at [facility] between 11/12 to 11/13/2020 for COVID-19 bronchitis. 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 The most recent surgery was [...] and Family: Once a week ??? Attends [employer] Services: More than 4 times per year [...] carcinoma in situ. Follow-up by Dermatology. 16. [place] renal imaging if on dialysis >3 years: [...] Dr. Ellen Rangel M.D.. I confirmed the gacria elements of thehistory and physical exam. I [...] stable. In 2017 the patient underwent a tribe kidney biopsy in setting of proteinuria and [...] had brief admission to the hospital at [facility] on 11/12/2020. At that time he also [...] Laboratory Medicine Angélica Granger P.A.-C. [address] [place] [phone] 05/23/2022 Clinical Admitting/Central Communication Scheduling 05/27/2022 Comprehensive Visit Orthopedic Surgery Markus Sams M.D., Ph.D. [address] [place] [address] [phone] 05/29/2022 Office Visit Otorhinolaryngology Dex Matta APRN, C.N.P., M.S.N. [address] [place] [address] [phone] 05/29/2022 Office Visit Otorhinolaryngology Nadeem Maradiaga, P.A.-C., M.S. [address] [place] [phone] 05/31/2022 Appointment Radiology Guilherme Matt MPAS, PEdgar.Marie., M.S. [address] [place] [phone] 06/05/2022 Appointment Laboratory Medicine Angélica Granger P.A.-C. [address] [place] [address] [phone] 06/19/2022 Appointment Laboratory Medicine Angélica Granger P.A.-C. [address] [place] [phone] 07/03/2022 Appointment Laboratory Medicine Angélica Granger P.A.-C. [address] [place] [phone] 07/17/2022 Appointment Laboratory Medicine Angélica Granger P.A.-C. [address] [place] [phone] 07/31/2022 Appointment Laboratory Medicine Angélica Granger P.A.-C. [address] [place] [phone] 08/14/2022 Appointment Laboratory Medicine Angélica Granger P.A.-C. [address] [place] [phone] 08/28/2022 Appointment Laboratory Medicine Angélica Granger P.A.-C. [address] [place] [phone] Scheduled Referrals Name Type Priority Associated Order Schedule Diagnoses Pulmonary Medicine - Outpatient Referral Routine Bronchitis Ch ronic Expected: General consult (HCC) 11/27/2020, (clinic) Expires: 12/20/2020 Nephrology nurse Outpatient [...] as of this encounter Care Teams Death Claim Examiner Relationship Specialty Start Date End Date Elsewhere, Pcp PCP - General Family Medicine 07/29/17 [facility] - Laboratory Medicine 04/12/[address] [address] documented as of this encounter
--- OUTSIDE RECORDS SUMMARY | 2022-05-17 18:44 | XMS_ITS | Encounter Summary ---
:1955 Author Organization [facility] Address [address] [place] [address] Care Team Providers Name Role Phone Elsewhere, Pcp Primary Care Provider Unavailable Encounter Details Date Type Department Care Team Description 11/27/2020 Hospital Encounter Department of Willis Mcdermott Trans plant Liver (HCC); Radiology, Chance Osborn M.D. 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 Medication Therapy Soil Specialist Not Anticoagulant sodium chloride USE 4 ML [...] Laboratory Medicine Angélica Granger P.A.-C. [address] [place] [phone] 05/23/2022 Clinical Admitting/Central Communication Scheduling 05/27/2022 Comprehensive Visit Orthopedic Surgery Markus Sams M.D., Ph.D. [address] [place] [phone] 05/29/2022 Office Visit Otorhinolaryngology Dex Matta APRN, C.N.P., M.S.N. [address] [place] [phone] 05/29/2022 Office Visit Otorhinolaryngology Nadeem Maradiaga, P.A.-C., M.S. [address] [place] [phone] 05/31/2022 Appointment Radiology Guilherme Matt, RASTA, P.Murtaza.-Arley., M.S. [address] [place] [phone] 06/05/2022 Appointment Laboratory Medicine Angélica Granger P.A.-C. [address] [place] [phone] 06/19/2022 Appointment Laboratory Medicine Angélica Granger P.A.-C. [address] [place] [phone] 07/03/2022 Appointment Laboratory Medicine Angélica Granger P.A.-C. [address] [place] [phone] 07/17/2022 Appointment Laboratory Medicine Angélica Granger P.A.-C. [address] [place] [phone] 07/31/2022 Appointment Laboratory Medicine Angélica Granger P.A.-C. [address] [place] [phone] 08/14/2022 Appointment Laboratory Medicine Angélica Granger P.A.-C. [address] [place] [phone] 08/28/2022 Appointment Laboratory Medicine Angélica Granger P.A.-C. [address] [place] [phone] documented as of this encounter Procedures Procedure Name Priority Date/Time Associated Comments Diagnosis DX CHEST AP OR PA RAD - Routine 11/27/2020 9:18 Transplant Liver Re sults for this AND LATERAL 2 (most inpatients AM CDT (HCC) procedure are in VIEWS and all Medication Therapy the resul ts outpatients) Soil Specialist Not section. Anticoagulant Cirrhosis Cryptogenic (HCC ) [...] Willis Mcdermott M.D. IMG DIAGNOSTIC IMAGING PROCE IKE documented in this encounter Visit Diagnoses Diagnosis Transplant Liver (HCC) Medication Therapy Soil Specialist Not Anticoa gulant Cirrhosis Cryptogenic (HCC) Screening Examination Prostate Cancer Screening Examination Skin Cancer documented in this encounter Additional Health Concerns Assessment Noted Time PHQ-9 Depression Total Score: 3 11/22/2019 7:34 AM CDT documented as of this encounter Care Teams Technical Sales Representatives Relationship Specialty Start Date End Date Elsewhere, Pcp PCP - General Family Medicine 07/29/17 [facility] - Laboratory Medicine 04/12/[address] [address] documented as of this encounter
--- OUTSIDE RECORDS SUMMARY | 2022-05-17 18:44 | XMS_ITS | Encounter Summary ---
:[address] [facility] Address [address] [place] [address] Care Team Providers Name Role Phone Elsewhere, Pcp Primary Care Provider Unavailable Reason for Referral Outpatient (Routine) - Closed Specialty Diagnoses / Procedures Referred By Contact Refer red To Contact Diagnoses Transplant Liver (HCC) Medication Therapy Devulcanizer Tender Not Anticoagulant Cirrhosis Cryptogenic (HCC) Screening Examination Prostate Cancer Screening Examination Skin Cancer Willis Mcdermott M.D. [facility] Procedures US Liver Transplant 200 [place] [address] Referral ID Status Reason Start Date Expiration Date Visits Requ ested Visits Authorized [id number] Closed 09/14/2020 09/14/2021 1 1 Reason for Visit Outpatient (Routine) - Closed Specialty Diagnoses / Procedures Referred By Contact Refer red To Contact Diagnoses Transplant Liver (HCC) Medication Therapy Devulcanizer Tender Not Anticoagulant Cirrhosis Cryptogenic (HCC) Screening Examination Prostate Cancer Screening Examination Skin Cancer Willis Mcdermott M.D. [facility] Procedures US Liver Transplant [address] [place] [address] Referral ID Status Reason Start Date Expiration Date Visits Requ ested Visits Authorized [id number] Closed 09/14/2020 09/14/2021 1 1 Encounter Details Date Type Department Care Team Description 11/27/2020 Hospital Encounter Department of Willis Mcdermott Trans plant Liver (HCC); Radiology, Kd Osborn M.D. 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 Medication Therapy Mcc Not Anticoagulant sodium chloride USE 4 ML VIA 0 08/30/2020 021 (NEBUSAL) 3 % nebulizer NEBULIZER TWICE solution DAILY tacrolimus (PROGRAF) Take 2 capsules (1 360 capsule 3 202007/16/2021 0.5 mg mg total) by mouth 2 capsuleIndications: (two) times a day. Transplant Liver (HCC), Medication Therapy Mcc Not Anticoagulant torsemide (DEMADEX) 10 Take 3 tablets (30 270 tablet 3 05/2202/22/2021 mg tablet mg total) by mouth daily. documented as of this encounter Plan of Treatment Upcoming Encounters Date Type Specialty Care Team Description 05/22/2022 Appointment Laboratory Medicine Angélica Granger P.A.-C. [address] [place] [phone] 05/23/2022 Clinical Admitting/Central Communication Scheduling 05/27/2022 Comprehensive Visit Orthopedic Surgery Markus Sams M.D., Ph.D. [address] [place] [phone] 05/29/2022 Office Visit Otorhinolaryngology Dex Matta APRN, C.N.P., M.S.N. [address] [place] [phone] 05/29/2022 Office Visit Otorhinolaryngology aNdeem Maradiaga P.A.-C., M.S. [address] [place] [address] [phone] 05/31/2022 Appointment Radiology Guilherme Matt MPAS, P.A.-C., M.S. [address] [place] [phone] 06/05/2022 Appointment Laboratory Medicine Angélica Granger P.A.-C. [address] [place] [phone] 06/19/2022 Appointment Laboratory Medicine Angélica Granger P.A.-C. [address] [place] [phone] 07/03/2022 Appointment Laboratory Medicine Angélica Granger P.A.-C. [address] [place] [address] [phone] 07/17/2022 Appointment Laboratory Medicine Angélica Granger P.A.-C. [address] [place] [phone] 07/31/2022 Appointment Laboratory Medicine Angélica Granger P.A.-C. [address] [place] [phone] 08/14/2022 Appointment Laboratory Medicine Angélica Granger P.A.-C. [address] [place] [address] 08/28/2022 Appointment Laboratory Medicine Emiliejeri Angélica Stern P.A.-C. [address] [place] [address] documented as of this encounter Procedures Procedure Name Priority Date/Time Associated Comments Diagnosis US LIVER RAD - Routine 11/27/2020 9:30 Transplant Liver Results for this TRANSPLANT (most inpatients AM CDT (HCC) procedure are in and all Medication Therapy the resul ts outpatients) Mcc Not section. Anticoagulant Cirrhosis Cryptogenic (HCC ) [...] Diagnoses Diagnosis Transplant Liver (HCC) Medication Therapy Devulcanizer Tender Not Anticoa gulant Cirrhosis Cryptogenic (HCC) Screening Examination Prostate Cancer Screening Examination Skin Cancer documented in this encounter Additional Health Concerns Assessment Noted Time PHQ-9 Depression Total Score: 3 11/22/2019 7:34 AM CDT documented as of this encounter Care Teams Assembler Finger Buffs Relationship Specialty Start Date End Date Elsewhere, Pcp PCP - General Family Medicine 07/29/17 [facility] - Laboratory Medicine 04/12/[address] [address] documented as of this encounter
--- OUTSIDE RECORDS SUMMARY | 2022-05-17 18:44 | XMS_ITS | Encounter Summary ---
:1955 Author Organization [facility] Address [address] [place] [address] Care Team Providers Name Role Phone Elsewhere, Pcp Primary Care Provider Unavailable Reason for Visit Transplant (Routine) - Closed Specialty Diagnoses / Procedures Referred By Contact Refer red To Contact Transplant Surgery / Diagnoses Pretransplant Recipient Evaluation Exam Chronic Kidney Disease Stage 4 Glomerular Filtration Rate 15-29 (HCC) Akin Chavez M.D. [facility] Transplant [address] [place] [phone] Referral ID Status Reason Start Date Expiration Date Visits Requ ested Visits Authorized [id number] Closed 09/15/2020 09/15/2021 1 1 Encounter Details Date Type Department Care Team Description 11/27/2020 Nurse Only Curt Rene [facility] Akin York M.D. [address] [place] [phone] for Transplantation and Nayeli Infante R.N., C.C.T.C. 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 [address] [place] [phone] 05/23/2022 Clinical Admitting/Central Communication Scheduling 05/27/2022 Comprehensive Visit Orthopedic Surgery Markus Sams M.D., Ph.D. [address] [place] [phone] 05/29/2022 Office Visit Otorhinolaryngology Dex Matta APRN, C.N.P., M.S.N. [address] [place] [phone] 05/29/2022 Office Visit Otorhinolaryngology Nadeem Maradiaga P.Murtaza.-Arley., M.S. [address] [place] [phone] 05/31/2022 Appointment Radiology Guilherme Matt MPAS, Edmundo, M.S. [address] [place] [address] [phone] 06/05/2022 Appointment Laboratory Medicine Angélcia Granger P.A.-C. [address] [place] [phone] 06/19/2022 Appointment Laboratory Medicine Angélica Granger P.A.-C. [address] [place] [phone] 07/03/2022 Appointment Laboratory Medicine Angélica Granger P.A.-C. [address] [place] [phone] 07/17/2022 Appointment Laboratory Medicine Angélica Granger P.A.-C. [address] [place] [phone] 07/31/2022 Appointment Laboratory Medicine Angélica Granger P.A.-C. [address] [place] [phone] 08/14/2022 Appointment Laboratory Medicine Angélica Granger P.A.-C. [address] [place] [phone] 08/28/2022 Appointment Laboratory Medicine Angélica Granger P.A.-C. [address] [place] [phone] documented as of this encounter Visit Diagnoses Diagnosis Pretransplant Recipient Evaluation Exam Chronic Kidney Disease Stage 4 Glomerula r Filtration Rate 15-29 (HCC) documented in this encounter Additional Health Concerns Assessment Noted Time PHQ-9 Depression Total Score: 3 11/22/2019 7:34 AM CDT documented as of this encounter Care Teams Telephone Diaphragm Assembler Relationship Specialty Start Date End Date Elsewhere, Pcp PCP - General Family Medicine 07/29/17 [facility] - Laboratory Medicine 04/12/20 [place] [phone] documented as of this encounter
--- OUTSIDE RECORDS SUMMARY | 2022-05-17 18:44 | XMS_ITS | Encounter Summary ---
:1955 Author Organization [facility] Address [address] [place] [address] Care Team Providers Name Role Phone Elsewhere, Pcp Primary Care Provider Unavailable Reason for Referral MRI/CAT/PET Scan (Routine) - Closed Specialty Diagnoses / Procedures Referred By Contact Refer red To Contact Radiology Diagnoses Pretransplant Recipient Evaluation Exam Chronic Kidney Disease Stage 4 Glomerular Filtration Rate 15-29 (HCC) Akin Chavez M.D. [facility] Procedures CT Abdomen Pelvis without IV Contrast [address] [place], [place] [phone] Referral ID Status Reason Start Date Expiration Date Visits Requ ested Visits Authorized [id number] Closed 09/15/2020 09/15/2021 1 1 Reason for Visit MRI/CAT/PET Scan (Routine) - Closed Specialty Diagnoses / Procedures Referred By Contact Refer red To Contact Radiology Diagnoses Pretransplant Recipient Evaluation Exam Chronic Kidney Disease Stage 4 Glomerular Filtration Rate 15-29 (HCC) Akin Chavez M.D. [facility] Procedures CT Abdomen Pelvis without IV Contrast [address] [place], [place] [phone] Referral ID Status Reason Start Date Expiration Date Visits Requ ested Visits Authorized [id number] Closed 09/15/2020 09/15/2021 1 1 Encounter Details Date Type Department Care Team Description 11/27/2020 Hospital Encounter Department of Scott, Naim S, Pretran splant Recipient Evaluation Exam; Radiology, Chance Tomlin Chronic Kidney Disease Stage 4 Glomerula r Filtration Rate 15-29 (HCC) Building, in 200 [place], [place] 200 [facility] [address] [place], [place] [phone] (Work) [phone] Social History Tobacco Use Types Packs/Day Years [...] Date Recorded 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 Medication Therapy Health Program Manager Not Anticoagulant sodium chloride USE 4 ML VIA 0 08/30/2020 021 (NEBUSAL) 3 % nebulizer NEBULIZER TWICE solution DAILY tacrolimus (PROGRAF) Take 2 capsules (1 360 capsule 3 202007/16/2021 0.5 mg mg total) by mouth 2 capsuleIndications: (two) times a day. Transplant Liver (HCC), Medication Therapy Health Program Manager Not Anticoagulant torsemide (DEMADEX) 10 Take 3 tablets (30 270 tablet 3 05/2202/22/2021 mg tablet mg total) by mouth daily. documented as of this encounter Plan of Treatment Upcoming Encounters Date Type Specialty Care Team Description 05/22/2022 Appointment Laboratory Medicine Angélica Granger P.A.-C. [address] [place] [phone] 05/23/2022 Clinical Admitting/Central Communication Scheduling 05/27/2022 Comprehensive Visit Orthopedic Surgery Markus Sams M.D., Ph.D. [address] [place] [phone] 05/29/2022 Office Visit Otorhinolaryngology Dex Matta APRN, C.N.P., M.S.N. [address] [place] [phone] 05/29/2022 Office Visit Otorhinolaryngology Nadeem Maradiaga P.A.-C., M.S. [address] [place] [address] [phone] 05/31/2022 Appointment Radiology Guilherme Matt MPAS, P.A.-C., M.S. [address] [place] [phone] 06/05/2022 Appointment Laboratory Medicine Angélica Granger P.A.-C. [address] [place] [phone] 06/19/2022 Appointment Laboratory Medicine Angélica Granger P.A.-C. [address] [place] [address] [phone] 07/03/2022 Appointment Laboratory Medicine Angélica Granger P.A.-C. [address] [place] [address] [phone] 07/17/2022 Appointment Laboratory Medicine Angélica Granger P.A.-C. [address] [place] [phone] 07/31/2022 Appointment Laboratory Medicine Angélica Granger P.A.-C. [address] [place] [phone] 08/14/2022 Appointment Laboratory Medicine Angélica Granger P.A.-C. [address] [place] [phone] 08/28/2022 Appointment Laboratory Medicine DarlingAngélica melendrez Edmundo Stern [address] [place] [phone] documented as of this encounter Procedures Procedure [...] previous hepatic transplant. Splenomegaly. Mildly atrophi c [place] [facility]. Mild to moderate calcific atherosclerotic [...] previous hepatic transplant. Splenomegaly. Mildly atrophi c [place] kidneys. Mild to moderate calcific atherosclerotic [...] No significant calcification external iliac arteries. Akin HEREDIA CT PROCEDURES documented in this encounter Visit Diagnoses Diagnosis Pretransplant Recipient Evaluation Exam Chronic Kidney Disease Stage 4 Glomerula r Filtration Rate 15-29 (HCC) documented in this encounter Additional Health Concerns Assessment Noted Time PHQ-9 Depression Total Score: 3 11/22/2019 7:34 AM CDT documented as of this encounter Care Teams Excavating Contractor Relationship Specialty Start Date End Date Elsewhere, Pcp PCP - General Family Medicine 07/29/17 [facility] - Laboratory Medicine 04/12/[address] [address] documented as of this encounter
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
--- OUTSIDE RECORDS SUMMARY | 2022-05-17 18:44 | XMS_ITS | Encounter Summary ---
:1955 Author Organization [facility] Address [address] [place] [address] Care Team Providers Name Role Phone Elsewhere, Pcp Primary Care Provider Unavailable Reason for Visit Transplant (Routine) - Closed Specialty Diagnoses / Procedures Referred By Contact Refer red To Contact Transplant Surgery / Diagnoses Transplant Liver (HCC) Medication Therapy Nurse Anesthesia Program Director Not Anticoagulant Cirrhosis Cryptogenic (HCC) Screening Examination Prostate Cancer Screening Examination Skin [facility] [address] [place] [phone] Referral ID Status Reason Start Date Expiration Date Visits Requ ested Visits Authorized [id number] Closed 09/14/2020 09/14/2021 1 1 Encounter Details Date Type Department Care Team Description 11/27/2020 Comprehensive Visit Department of Kandace James osis Actinic (Primary Dx); Dermatology in , MPAS, P.A.-C. 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 He was last seen at [facility] Dermatology in September 2020, at which time [...] Laboratory Medicine Angélica Granger P.A.-C. [address] [place] [phone] 05/23/2022 Clinical Admitting/Central Communication Scheduling 05/27/2022 Comprehensive Visit Orthopedic Surgery Markus Sams M.D., Ph.D. [address] [place] [phone] 05/29/2022 Office Visit Otorhinolaryngology Dex Matta, RAMONA, C.N.P., M.S.N. [address] [place] [phone] 05/29/2022 Office Visit Otorhinolaryngology Nadeem Maradiaga P.A.-C., M.S. [address] [place] [phone] 05/31/2022 Appointment Radiology Guilherme Matt, Jennifer MAGDALENO., M.S. [address] [place] [phone] 06/05/2022 Appointment Laboratory Medicine Angélica Granger P.A.-C. [address] [place] [phone] 06/19/2022 Appointment Laboratory Medicine Angélica Granger P.A.-C. [address] [place] [phone] 07/03/2022 Appointment Laboratory Medicine Angélica Granger P.A.-C. [address] [place] [phone] 07/17/2022 Appointment Laboratory Medicine Angélica Granger P.A.-C. [address] [place] [phone] 07/31/2022 Appointment Laboratory Medicine Angélica Granger P.A.-C. [address] [place] [phone] 08/14/2022 Appointment Laboratory Angélica Royal P.A.-C. [address] [place] [phone] 08/28/2022 Appointment Laboratory Medicine Angélica Granger P.A.-C. [address] [place] [address] [phone] documented as of this encounter Visit Diagnoses Diagnosis Keratosis Actinic - Primary Transplant Liver (HCC) Medication Therapy Mcc Not Anticoa gulant Keratosis Seborrheic documented in this encounter Additional Health Concerns Assessment Noted Time PHQ-9 Depression Total Score: 3 11/22/2019 7:34 AM CDT documented as of this encounter Care Teams Truck Shop Mechanic Relationship Specialty Start Date End Date Elsewhere, Pcp PCP - General Family Medicine 07/29/17 [facility] - Laboratory Medicine 04/12/20 [place] [address] documented as of this encounter
--- OUTSIDE RECORDS SUMMARY | 2022-05-17 18:44 | XMS_ITS | Encounter Summary ---
:1955 Author Organization [facility] Address [address] [place] [address] Care Team Providers Name Role Phone Elsewhere, Pcp Primary Care Provider Unavailable Reason for Visit Transplant (Routine) - Closed Specialty Diagnoses / Procedures Referred By Contact Refer red To Contact Transplant Surgery / Salvador Douglas M.D. [address] [place] [address] Referral ID Status Reason Start Date Expiration Date Visits Requ ested Visits Authorized [id number] Closed 08/25/2018 08/25/2019 1 1 Encounter Details Date Type Department Care Team Description 11/28/2020 Office Visit Salvador Carrizales M.D. [address] [place] [address] Transplant Liver (HCC); Waleska Dunn M.D. 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 [address] [place] [phone] 05/23/2022 Clinical Admitting/Central Communication Scheduling 05/27/2022 Comprehensive Visit Orthopedic Surgery Markus Sams M.D., Ph.D. [address] [place] [phone] 05/29/2022 Office Visit Otorhinolaryngology Dex Matta APRN, C.N.P., M.S.N. [address] [place] [address] [phone] 05/29/2022 Office Visit Otorhinolaryngology Nadeem Maradiaga, P.A.-Arley., M.S. [address] [place] [address] [phone] 05/31/2022 Appointment Radiology Guilherme Matt MPAS, PMaryanne., M.S. [address] [place] [phone] 06/05/2022 Appointment Laboratory Medicine Angélica Granger P.A.-C. [address] [place] [phone] 06/19/2022 Appointment Laboratory Medicine Angélica Granger P.A.-C. [address] [place] [phone] 07/03/2022 Appointment Laboratory Medicine Angélica Granger P.A.-C. [address] [place] [phone] 07/17/2022 Appointment Laboratory Medicine Angélica Granger P.A.-C. [address] [place] [phone] 07/31/2022 Appointment Laboratory Medicine Angélica Granger P.A.-C. [address] [place] [phone] 08/14/2022 Appointment Laboratory Medicine Angélica Granger P.A.-C. [address] [place] [phone] 08/28/2022 Appointment Laboratory Medicine Angélica Granger P.A.-C. 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
--- OUTSIDE RECORDS SUMMARY | 2022-05-17 18:44 | XMS_ITS | Encounter Summary ---
:1955 Author Organization [facility] Address [address] [place] [id number] Care Team Providers Name Role Phone Elsewhere, Pcp Primary Care Provider Unavailable Reason for Visit Transplant (Routine) - Closed Specialty Diagnoses / Procedures Referred By Contact Refer red To Contact Transplant Surgery / Diagnoses Transplant Liver (HCC) Medication Therapy Director Of Emergency Nursing Not Anticoagulant Cirrhosis Cryptogenic (HCC) Screening Examination Prostate Cancer Screening Examination [facility] [place] [address] [place] [phone] Referral ID Status Reason Start Date Expiration Date Visits Requ ested Visits Authorized [id number] Closed 09/14/2020 09/14/2021 1 1 Encounter Details Date Type Department Care Team Description 11/28/2020 Nurse Only [facility] Willis Shearer M.D. [address] [place] [phone] for Transplantation and Yolie Dubois R.N. 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 yes- [facility] ICU for COVID New on-set diabetes [...] by provider. Bruce has labs drawn at [facility]. ---- Bruce's local provider is Ryan Cole MD at [facility]. ---- Reviewed current test results, [...] Appointment Laboratory Medicine Angélica Granger, Evan.A.-C. [address] [place] [phone] 05/23/2022 Clinical Admitting/Central Communication Scheduling 05/27/2022 Comprehensive Visit Orthopedic Surgery Markus Sams M.D., Ph.D. [address] [place] [phone] 05/29/2022 Office Visit Otorhinolaryngology Dex Matta APRN, C.N.P., M.S.N. [address] [place] [phone] 05/29/2022 Office Visit Otorhinolaryngology Nadeem Maradiaga, P.A.-C., M.S. [address] [place] [phone] 05/31/2022 Appointment Radiology Guilherme Matt MPAS, Edmundo, M.S. [address] [place] [phone] 06/05/2022 Appointment Laboratory Medicine Angélica Granger P.A.-C. [address] [place] [phone] 06/19/2022 Appointment Laboratory Medicine Angélica Granger P.A.-C. [address] [place] [phone] 07/03/2022 Appointment Laboratory Medicine Angélica Granger P.A.-C. [address] [place] [phone] 07/17/2022 Appointment Laboratory Medicine Angélica Granger P.A.-C. [address] [place] [phone] 07/31/2022 Appointment Laboratory Medicine Angélica Granger P.A.-C. [address] [place] [phone] 08/14/2022 Appointment Laboratory Medicine Angélica Granger P.A.-C. [address] [place] [phone] 08/28/2022 Appointment Laboratory Medicine Angélica Granger P.A.-C. [address] [place] [phone] documented as of this encounter Visit Diagnoses Diagnosis Transplant Liver (HCC) Medication Therapy Director Of Emergency Nursing Not Anticoa gulant Cirrhosis Cryptogenic (HCC) Screening Examination Prostate Cancer Screening Examination Skin Cancer documented in this encounter Additional Health Concerns Assessment Noted Time PHQ-9 Depression Total Score: 4 11/28/2020 10:17 AM CD T documented as of this encounter Care Teams Avionics Installer Relationship Specialty Start Date End Date Elsewhere, Pcp PCP - General Family Medicine 07/29/17 [facility] - Laboratory Medicine 04/12/[address] [address] documented as of this encounter
--- OUTSIDE RECORDS SUMMARY | 2022-05-17 18:45 | XMS_ITS | Encounter Summary ---
:1955 Author Organization [facility] Address [address] [place] [address] Care Team Providers Name Role Phone Elsewhere, Pcp Primary Care Provider Unavailable Reason for Visit Reason Onset Date Comments COVID-19 Remote Patient Monitoring 11/12/2020 Symptom Assessment 11/12/2020 Encounter Details Date Type Department Care Team Description 11/12/2020 Remote Monitoring Remote Patient Elie Pinto COVID -19 Remote Monitoring K, R.N. 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 RN has called [facility] ED ATC alerting them patient will be coming in the next couple arrives by private car. documented in this encounter Plan of Treatment Upcoming Encounters Date Type Specialty Care Team Description 05/22/2022 Appointment Laboratory Medicine Angélica Granger P.A.-C. [address] [place] [phone] 05/23/2022 Clinical Admitting/Central Communication Scheduling 05/27/2022 Comprehensive Visit Orthopedic Surgery Markus Sams M.D., Ph.D. [address] [place] [phone] 05/29/2022 Office Visit Otorhinolaryngology Dex Matta APRN C.N.P., M.S.N. [address] [place] [phone] 05/29/2022 Office Visit Otorhinolaryngology Nadeem Maradiaga, Jennifer., M.S. [address] [place] [phone] 05/31/2022 Appointment Radiology Guilherme Matt, Edmundo MAGDALENO, M.S. [address] [place] [phone] 06/05/2022 Appointment Laboratory Medicine Angélica Granger P.A.-C. [address] [place] [phone] 06/19/2022 Appointment Laboratory Medicine Angélica Granger P.A.-C. [address] [place] [phone] 07/03/2022 Appointment Laboratory Medicine Angélica Granger P.A.-C. [address] [place] [phone] 07/17/2022 Appointment Laboratory Medicine Angélica Granger P.A.-C. [address] [place] [phone] 07/31/2022 Appointment Laboratory Medicine Angélica Granger P.A.-C. [address] [place] [phone] 08/14/2022 Appointment Laboratory Medicine Angélica Granger P.A.-C. [address] [place] [phone] 08/28/2022 Appointment Laboratory Medicine Angélica Granger P.A.-C. [address] [place] [phone] documented as of this encounter Visit Diagnoses Diagnosis COVID-19 Infection documented in this encounter Additional Health Concerns Infection Onset Date Last Indicated Resolved Time COVID19 10/30/2020 10/30/2020 11/19/2020 4:45 AM CDT Assessment Noted Time PHQ-9 Depression Total Score: 3 11/22/2019 7:34 AM CDT documented as of this encounter Care Teams Antiquer Relationship Specialty Start Date End Date Elsewhere, Pcp PCP - General Family Medicine 07/29/17 [facility] - Laboratory Medicine 04/12/[address] [address] documented as of this encounter
--- OUTSIDE RECORDS SUMMARY | 2022-05-17 18:45 | XMS_ITS | Encounter Summary ---
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 Encounter Details Date Type Department Care Team Description 11/19/2020 Remote Monitoring Remote Patient Jennifer Dietrich Graduation (Patient Monitoring [phone] has graduated from [facility] 5 (Work) the Remote Monitoring [address] [place] [address] Program. 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 [address] [place] [phone] 05/23/2022 Clinical Admitting/Central Communication Scheduling 05/27/2022 Comprehensive Visit Orthopedic Surgery Markus Sams M.D., Ph.D. [address] [place] [phone] 05/29/2022 Office Visit Otorhinolaryngology Dex Matta APRN, C.N.P., M.S.N. [address] [place] [phone] 05/29/2022 Office Visit Otorhinolaryngology Nadeem Maradiaga, P.Murtaza.-Arley., M.S. [address] [place] [address] [phone] 05/31/2022 Appointment Radiology Guilherme Matt MPAS, PEdgar.Marie., M.S. [address] [place] [phone] 06/05/2022 Appointment Laboratory Medicine Angélica Granger P.A.-C. [address] [place] [phone] 06/19/2022 Appointment Laboratory Medicine Angélica Granger P.A.-C. [address] [place] [phone] 07/03/2022 Appointment Laboratory Medicine Angélica Granger P.A.-C. [address] [place] [phone] 07/17/2022 Appointment Laboratory Medicine Angélica Granger P.A.-C. [address] [place] [phone] 07/31/2022 Appointment Laboratory Medicine Angélica Granger P.A.-C. [address] [place] [phone] 08/14/2022 Appointment Laboratory Medicine Angélica Granger P.A.-C. [address] [place] [phone] 08/28/2022 Appointment Laboratory Medicine Angélica Granger P.A.-C. [address] [place] [phone] documented as of this encounter Visit Diagnoses Diagnosis COVID-19 Infection documented in this encounter Additional Health Concerns Infection Onset Date Last Indicated Resolved Time COVID19 10/30/2020 10/30/2020 11/19/2020 4:45 AM CDT Assessment Noted Time PHQ-9 Depression Total Score: 3 11/22/2019 7:34 AM CDT documented as of this encounter Care Teams Maritime Engineer Relationship Specialty Start Date End Date Elsewhere, Pcp PCP - General Family Medicine 07/29/17 [facility] - Laboratory Medicine 04/12/[address] [address] documented as of this encounter
--- OUTSIDE RECORDS SUMMARY | 2022-05-17 18:45 | XMS_ITS | Encounter Summary ---
:1955 Author Organization [facility] Address [address] [place] [address] Care Team Providers Name Role Phone Elsewhere, Pcp Primary Care Provider Unavailable Reason for Visit Reason Comments Shortness of Breath Encounter Details Date Type Department Care Team Description 11/12/2020 - Emergency [facility], Murtaza Kilgore M.D. [address] [place] [phone] Acute Bronchitis Due To COVID-19 (Primar y Dx); 11/13/2020 [facility], Perez Alexander M.D. [address] [place] [phone] Anemia; [facility], Asya Garcia M.D. [address] [place] [phone] Hyponatremia; Sixth Floor Shortness Of Breath; [address] [place] [address] Elevated D-[place] [address] Social History Tobacco Use Types [...] 12/15/2021 organizations such as faith groups, unions, fraThe Noun Project or athletic groups, or school groups? 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 Primary Team: [facility] Medicine 7 ([facility] Primary Care Providers: Elsewhere, Pcp (General) [...] 2:00 PM RM MOTIL 01 ROGO 09 [facility] Gastroenterology and Hepatology 11/22/2020 1:30 PM RM MOTIL 01 ROGO 09 [facility] Gastroenterology and Hepatology 11/27/2020 7:00 AM LAB [...] AM CDT You were discharged from the [facility] Medicine 7 ([facility]) Service. Please identify this service name [...] mouth Transplant Liver (HCC), daily. Medication Therapy Skilled Nursing Not Anticoagulant tacrolimus (PROGRAF) Take 2 capsules (1 360 capsule 3 202007/16/2021 0.5 mg mg total) by mouth 2 capsuleIndications: (two) times a day. Transplant Liver (HCC), Medication Therapy Facility Environmental Technician Not Anticoagulant torsemide (DEMADEX) 10 Take [...] Mr. Bruce Singh today and provided counseling [id number] at bedside. I personally reviewed the discharge [...] HOSPITAL INTERNAL MEDICINE - ADMISSION NOTE Location: [facility] ED [place] [address] ([facility]) Hospital Day: 0 Address: [address] [place] [id number] SUBJECTIVE HISTORY OF PRESENT ILLNESS: Bruce Singh [...] [facility]. 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..] No ASSESSMENT / PLAN Plan Assessment: The chronometer assembler and adjuster met with Bruce Singh to discuss his current hospitalization and home going needs. The patient was unaccompanied. The patient was a reliable historian. The role of chronometer assembler and adjuster was reviewed. The patient reviewed his prior level of care and support system. The patient receives support from his extended family. The patient described his living environment as a [place] [facility] with level entry. Housekeeping, grocery shopping, meal prep, and other household responsibilities have previously been completed by patient. chronometer assembler and adjuster discussed the patient's potential needs at dismissal [...] chart and meeting with the patient, the chronometer assembler and adjuster deemed the LACE+/readmission questions were not necessary. [...] will be provided by family--Sister Parris. 3. chronometer assembler and adjuster recommended remote patient monitoring. 4. chronometer assembler and adjuster provided information regarding the dismissal process. 5. chronometer assembler and adjuster placed or requested the following hospital-based consult orders and/or referrals:None. 6. chronometer assembler and adjuster will continue to assess for homegoing needs with the interdisciplinary team. 7. chronometer assembler and adjuster encouraged the patient to reach out with [...] today. DEMOGRAPHIC INFORMATION Patient Name: [facility] Clinic Number: [id number] Age: 65 y.o. Birthdate: [...] manometry this week. He had a screening COMPUTER SCIENTIST swab forCOVID-19, which was positive. He does [...] Studies of note include: Pertinent microbiology: ??? COMPUTER SCIENTIST swab for SARS-CoV-2 PCR (August 25): Undetected [...] marcescens, 1+ methicillin- susceptible Staphylococcus aureus ??? COMPUTER SCIENTIST swab for SARS-CoV-2 PCR (October 30): Detected ??? 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 Thank you for the consultation. Patient history, evaluation and plan was reviewed with Transplant and COVID ID consultants, Dr. Jose Biggs and Dr. Candice Mcacrthy. Warner Martinez M.D. PGY6 Transplant Infectious Diseases [...] outpatient setting. For patients discharged to a senior living facility, memory home, or usp, clinical monitoring will be performed by the [...] Patient: 1. If you have a scheduled [id number] doctor's appointment before isolation precautions are lifted, [...] Shift Summary: Goal met. Patient dismissed to [facility] 11/13. Transportation provided by patient's sister. PIV [...] Outcome: Adequate for Discharge Patient discharged to [facility] this afternoon (11/13). Electronically signed by: Blanca [...] he was advised to come in by [facility] remote monitoring team for COVID-19. Pt reports [...] teeth. Faith Henley M.S.N., R.N., ANTONIO 11/12/20 [id number] documented in this encounter Miscellaneous Notes Hospital [...] Laboratory Medicine Angélica Granger P.A.-C. [address] [place] [phone] 05/23/2022 Clinical Admitting/Central Communication Scheduling 05/27/2022 Comprehensive Visit Orthopedic Surgery Markus Sams M.D., Ph.D. [address] [place] [phone] 05/29/2022 Office Visit Otorhinolaryngology Dex Matta APRN, C.N.P., M.S.N. [address] [place] [phone] 05/29/2022 Office Visit Otorhinolaryngology Nadeem Maradiaga, PEdgar.Marie., M.S. [address] [place] [phone] 05/31/2022 Appointment Radiology Guilherme Matt MPAS, Jennifer., M.S. [address] [place] [phone] 06/05/2022 Appointment Laboratory Medicine Angélica Granger P.A.-C. [address] [place] [phone] 06/19/2022 Appointment Laboratory Medicine Angélica Granger P.A.-C. [address] [place] [phone] 07/03/2022 Appointment Laboratory Medicine Angélica Granger P.A.-C. [address] [place] [phone] 07/17/2022 Appointment Laboratory Medicine Angélica Granger P.A.-C. [address] [place] [phone] 07/31/2022 Appointment Laboratory Medicine Angélica Granger P.A.-C. [address] [place] [phone] 08/14/2022 Appointment Laboratory Medicine Angélica Granger P.A.-C. [address] [place] [phone] 08/28/2022 Appointment Laboratory Medicine Angélica Granger P.A.-C. [address] [place] [phone] documented as of this encounter Procedures Procedure [...] Results (ABNORMAL) Magnesium (11/13/2020 4:06 AM CDT) [facility] Magnesium, S 2.7 (H) 1.7 - 2.3 11/13/2020 DTL mg/dL 4:52 AM CDT Specimen Anatomical Collection Method Collection Time Receive d Time (Source) Location / / Volume Laterality Blood 11/13/2020 4:06 AM 4:27 CDT AM CDT Natasha Rolle M.D., M.P.H. LAB BLOOD ADD-ON Performing Organization Address City/[facility]/ZIP Code Phon e Number [facility] - 200 [place], [place] [address] [facility] [place] [address] Laboratories-[facility] [address] LD (Lactate Dehydrogenase) (11/13/2020 4:06 AM CDT) [facility] Hospital Tr[place]y LD 198 122 - 222 11/13/2020 DTL U/L 5:12 AM CDT Specimen Anatomical Collection Method Collection Time Receive d Time (Source) Location / / Volume Laterality Blood 11/13/2020 4:06 AM 4:34 CDT AM CDT Natasha Rolle M.D., M.P.H. LAB BLOOD NON ADD-ON Performing Organization Address City/[facility]/ZIP Code Phon e Number [facility] - [address] [place], [place] [address] [place] [address] [facility] 200 [facility] (ABNORMAL) D-Dimer (11/13/2020 4:06 AM CDT) athologist Signature D-Dimer, P 542 (H) <=500 ng/mL 11/13/2020 DTL FEU 4:50 AM CDT Comment: D-dimer concentrations increase with age . ??For DVT/PE exclusion, in addition to clinical pre-test probabi lity, age-adjusted D-dimer cut-offs are suggested for patients >50 years old. For additional information refer to the D-dimer assay i n the Laboratory Test Catalog (LTC) and/or Ask[employer]Clean Filtration Technologyert (SUSANNA) . ----ADDITIONAL INFORMATION---- D-dimer values less than or equal to 500 ng/mL fibrinogen equivalent units (FEU) may be used in co njunction with clinical pre-test probability to exclude deep vein thrombosis (DVT) and/or pulmonary emboli sm (PE). Specimen Anatomical Collection Method Collection Time Receive d Time (Source) Location / / Volume Laterality Blood 11/13/2020 4:06 AM 4:28 CDT AM CDT Natasha Rolle M.D., M.P.H. LAB BLOOD ADD-ON Performing Organization Address City/State/ZIP Code Phon e Number [facility] 200 [place], [place] [address] [place] [address] [facility] 200 [facility] CRP (C-Reactive Protein) (11/13/2020 4:06 AM CDT) athologist Signature C-Reactive 5.3 <=8.0 mg/L 11/13/2020 DTL Protein (CRP), 4:57 AM CDT S Specimen Anatomical Collection Method Collection Time Receive d Time (Source) Location / / Volume Laterality Blood 11/13/2020 4:06 AM 4:27 CDT AM CDT Natasha Rolle M.D., M.P.H. LAB BLOOD ADD-ON Performing Organization Address City/State/ZIP Code Phon e Number [facility] - 200 [place], [place] [address] [facility] [place] [address] [facility] 200 [facility] (ABNORMAL) CBC with Differential, Blood (11/13/2020 4:06 AM CDT) [facility] Method Time Signature Hemoglobin 7.7 (L) 13.2 [...] [facility] [address] [place], [place] [address] [facility] [place] [address] [facility] 200 [address] [facility] (ABNORMAL) Comprehensive Metabolic Panel (11/13/2020 4:06 AM [...] 11/13/2020 DTL Black/ mL/min/BSA 4:57 AM CDT Lao Comment: ----ADDITIONAL INFORMATION---- Estimated GFR calculated using [...] M.P.H. LAB BLOOD ADD-ON Performing Organization Address City/[facility] Phon e Number [facility] - [address] [place], [place] [address] [place] [address] [place] [address] [facility] Ferritin (11/13/2020 4:06 AM CDT) athologist Signature Ferritin, S 222 24 - 336 11/13/2020 DTL mcg/L 7:16 AM CDT Specimen Anatomical Collection Method Collection Time Receive d Time (Source) Location / / Volume Laterality Blood 11/13/2020 4:06 AM 4:27 CDT AM CDT Natasha Rolle M.D., M.P.H. LAB BLOOD ADD-ON Performing Organization Address City/State/[facility] Phon e Number [facility] - [address] [place], [place] [address] [facility] [address] Magnesium (11/13/2020 12:17 AM CDT) athologist Signature Magnesium, S CANCELED 1.7 - 2.3 11/13/2020 DTL mg/dL 3:53 AM CDT Comment: REVISED RESULTS ----PREVIOUSLY REPORTED ---- 2.5, Flagged as: Abnormal_High (Reported 11/13/2020 01:53) Specimen Anatomical Collection Method Collection Time Receive d Time (Source) Location / / Volume Laterality Blood (Blood, 11/13/2020 12:17 11/13/2020 1:33 Venous) AM CDT AM CDT Narrative [facility] - 11/13/2020 3:53 AM CDT Magnesium, S was cancelled on 11/13/2020 at 03:53; Contamination suspected. Redraw has been ordered and is in progre ss. Kevin Bradford M.D. LAB BLOOD ADD-ON Performing Organization Address City/[facility] Phon e Number [facility] - [address] [place], [place] [address] [place] [id number] [place] [address] LD (Lactate Dehydrogenase) (11/13/2020 12:17 AM CDT) [facility] CANCELED 122 - 222 11/13/2020 [facility] LD U/L 3:53 AM CDT Comment: REVISED RESULTS ----PREVIOUSLY REPORTED ---- 216, Flagged as: Normal (Reported 11/13/2020 02:07) Specimen Anatomical Collection Method Collection Time Receive d Time (Source) Location / / Volume Laterality Blood (Blood, 11/13/2020 12:17 11/13/2020 1:31 Venous) AM CDT AM CDT Narrative [facility] - 11/13/2020 3:53 AM CDT Hospital [place] LD was cancelled on 11/13/2020 at 03:53; Contamination suspected. Redraw has been ordered and i s in progress. Kevin Bradford M.D. LAB BLOOD NON ADD-ON Performing Organization Address City/[facility] Phon e Number [facility] - [address] [place], [place] [address] [place], [place] [address] [place] [address] D-Dimer (11/13/2020 12:17 AM CDT) [facility] D-Dimer, P CANCELED <=500 ng/mL 11/13/2020 DTL [...] assay i n the Laboratory Test Catalog ([facility]) and/or AskMayoExpert (SUSANNA) ., Flagged as: Abnormal_High (Reported 11/13/2020 01:55) Specimen Anatomical Collection Method Collection Time Receive d Time (Source) Location / / Volume Laterality Blood (Blood, 11/13/2020 12:17 11/13/2020 1:33 Venous) AM CDT AM CDT Narrative [facility] - [facility] - 11/13/2020 3:53 AM CDT D-Dimer, P was cancelled on 11/13/2020 at 03:53; Contamination suspected. Redraw has been ordered and is in progre ss. Kevin Bradford M.D. LAB BLOOD ADD-ON Performing Organization Address City/State/ZIP Code Phon e Number [facility] - [address] [place] [address] [facility] [place] [address] Laboratories-[facility] [address] CBC with Differential, Blood (11/13/2020 12:17 AM CDT) P athologist Signature Hemoglobin CANCELED 13.2 - 16.6 [...] Venous) AM CDT 12:54 AM CDT Narrative [facility] - [facility] - 11/13/2020 3:53 AM CDT CBC with Differential, B was cancelled on 11/13/2020 at 03:53; Contamination suspected. Redraw has been ordered and i s in progress. Kevin Bradford M.D. LAB BLOOD ADD-ON Performing Organization Address City/State/ZIP Code Phon e Number [facility] - [address] [place], [place] [address] [facility] [place] [address] Laboratories[facility] [address] Ferritin (11/13/2020 12:17 AM CDT) P athologist Signature Ferritin, S CANCELED 24 - 336 11/13/2020 DTL mcg/L 3:53 AM CDT Comment: REVISED RESULTS ----PREVIOUSLY REPORTED ---- 194, Flagged as: Normal (Reported 11/13/2020 02:15) Specimen Anatomical Collection Method Collection Time Receive d Time (Source) Location / / Volume Laterality Blood (Blood, 11/13/2020 12:17 11/13/2020 1:16 Venous) AM CDT AM CDT Narrative [facility] - [facility] - 11/13/2020 3:53 AM CDT Ferritin, S was cancelled on 11/13/2020 at 03:53; Contamination suspected. Redraw has been ordered and is in progre ss. Kevin Bradford M.D. LAB BLOOD ADD-ON Performing Organization Address City/State/ZIP Code Phon e Number [facility] - [address] [place], [place] [address] [facility] [place] [address] [facility] [address] [place] Lower Extremity Veins [...] Rimma Culture, Blood (11/12/2020 7:41 PM CDT) Patholo gist Method Time Signature [...] GENERAL O RDERABLES Performing Organization Address City/[facility] Phon e Number [facility] - [address] [place] [address] [place] [address] [address] [address] Phosphorus Inorganic (11/12/2020 7:40 PM CDT) athologist Signature Phosphorus 3.4 2.5 - 4.5 11/12/2020 DTL (Inorganic), S mg/dL 9:42 PM CDT Specimen Anatomical Collection Method Collection Time Receive d Time (Source) Location / / Volume Laterality Blood (Blood, 11/12/2020 7:40 PM 11/13/19 9:17 Venous) CDT PM CDT Kevin Bradford M.D. LAB BLOOD ADD-ON Performing Organization Address City/[facility]/ZIP Code Phon e Number [facility] - 200 [place], [place] [address] [place] [address] (ABNORMAL) Magnesium (11/12/2020 7:40 PM CDT) [...] Address City/[facility]/ZIP Code Phon e Number [facility] - 200 [place], [place] [address] [place] [address] (ABNORMAL) Sedimentation Rate (11/12/2020 7:40 PM CDT) Patholo gist Method [...] Address City/[facility]/ZIP Code Phon e Number [facility] - 200 [place], [place] [address] [place] [address] Ferritin (11/12/2020 7:40 PM CDT) P athologist Signature Ferritin, S 248 24 - 336 11/12/2020 DTL mcg/L 9:30 PM CDT Specimen Anatomical Collection Method Collection Time Receive d Time (Source) Location / / Volume Laterality Blood (Blood, 11/12/2020 7:40 PM 11/13/19 21 8:28 Venous) CDT PM CDT Kevin Bradford M.D. LAB BLOOD ADD-ON Performing Organization Address City/[facility]/ZIP Code Phon e Number [facility] - 200 [place], [place] [address] [place] [phone] [place] [address] Type and Screen (with reflex Antibody ID) (11/12/2020 7:40 PM CDT) [facility] Method Time Signature ABORh O Pos Not 11/12/2020 STRM applicable 8:17 PM CDT Antibody Negative Negative 11/12/2020 STRM Screen 8:31 PM CDT Type & Screen 11/15/2020 11/12/2020 STRM Expiration 23:59 8:17 PM CDT Testing Rosalio DEFAULT 11/12/2020 STRM Location 7:51 PM CDT Specimen Anatomical Collection Method Collection Time Receive d Time (Source) Location / / Volume Laterality Blood (Blood, 11/12/2020 7:40 PM 11/13/19 7:51 Venous) CDT PM CDT Kevin Bradford M.D. LAB BLOOD BANK TEST ORDERABL ES Performing Organization Address City/[facility] Phon e Number [facility] - 200 [place], [place] [address] [facility] [place] [address] [facility] 200 [facility] Prothrombin Time (PT) (11/12/2020 7:40 PM CDT) [...] LAB BLOOD ADD-ON Performing Organization Address City/[facility] Code Phon e Number [facility] - 200 [place], [place] [address] [facility] [place] [address] [facility] 200 [facility] Lactate (11/12/2020 7:40 PM CDT) P athologist Signature Lactate, P 1.5 0.5 - 2.2 11/12/2020 DTL mmol/L 8:55 PM CDT Specimen Anatomical Collection Method Collection Time Receive d Time (Source) Location / / Volume Laterality Blood (Blood, 11/12/2020 7:40 PM 11/13/19 8:28 Venous) CDT PM CDT Kevin Bradford M.D. LAB BLOOD NON ADD-ON Performing Organization Address City/[facility] Phon e Number [facility] - 200 [place], [place] [address] [place] [address] [place] [phone] [place] [address] (ABNORMAL) Hepatic Function Panel (11/12/2020 7:40 PM [...] BLOOD ADD-ON Performing Organization Address City/[facility] Phon e Number [facility] - 200 [place], [place] [address] [facility] [place], [place] [address] [place] [address] (ABNORMAL) Fibrinogen (11/12/2020 7:40 PM CDT) P athologist Signature Fibrinogen, P 448 (H) 200 - 393 11/12/2020 DTL mg/dL 9:23 PM CDT Specimen Anatomical Collection Method Collection Time Receive d Time (Source) Location / / Volume Laterality Blood (Blood, 11/12/2020 7:40 PM 11/13/19 21 8:28 Venous) CDT PM CDT Kevin Bradford M.D. LAB BLOOD ADD-ON Performing Organization Address City/[facility] Code Phon e Number [facility] - 200 [place], [place] [address] [place] [address] [address] (ABNORMAL) D-Dimer (11/12/2020 7:40 PM CDT) athologist Signature D-Dimer, P 681 (H) <=500 [...] Address City/[facility]/ZIP Code Phon e Number [facility] - 200 [place], [place] [address] [facility] [place] [address] Laboratories-[address] CRP (C-Reactive Protein) (11/12/2020 7:40 PM CDT) P athologist Signature C-Reactive 5.5 <=8.0 mg/L 11/12/2020 DT Protein (CRP), 9:06 PM CDT S Specimen Anatomical Collection Method Collection Time Receive d Time (Source) Location / / Volume Laterality Blood (Blood, 11/12/2020 7:40 PM 11/13/19 8:28 Venous) CDT PM CDT Kevin Bradford M.D. LAB BLOOD ADD-ON Performing Organization Address City/State/ZIP Code Phon e Number [facility] - [address] [place], [place] [address] [facility] [place] [address] [facility] [address] [facility] (ABNORMAL) CBC with Differential, Blood (11/12/2020 7:40 PM CDT) [facility] Method Time Signature Hemoglobin 8.9 (L) [...] [facility] - [address] [place] [address] [facility] [place] [address] [facility] 200 [facility] (ABNORMAL) Basic Metabolic Panel (11/12/2020 7:40 PM [...] 11/12/2020 DTL Black/ mL/min/BSA 9:07 PM CDT Lao Comment: ----ADDITIONAL INFORMATION---- Estimated GFR calculated using [...] Address City/[facility]/ZIP Code Phon e Number [facility] - 200 [place], [place] [address] [place] [address] (ABNORMAL) APTT (Activated Partial Thromboplastin Time) (11/12/2020 7:40 PM CDT) P athologist Signature Activated 21 (L) 25 - 37 11/12/2020 DT Partial sec 9:23 PM CDT Thrombopl Time, P Specimen Anatomical Collection Method Collection Time Receive d Time (Source) Location / / Volume Laterality Blood (Blood, 11/12/2020 7:40 PM 11/13/19 8:28 Venous) CDT PM CDT Kevin Bradford M.D. LAB BLOOD ADD-ON Performing Organization Address City/[facility]/ZIP Code Phon e Number [facility] - [address] [place], [place] [address] [place] [address] ECG 12 Lead (11/12/2020 7:37 PM CDT) P athologist Signature Ventricular Rate 66 BPM MUSE ECG/Min GA Interval 178 ms MUSE QRSD Interval 94 ms MUSE QT Interval 448 ms MUSE QTC Interval 469 ms MUSE P [place] 71 degrees MUSE R [place] -5 degrees MUSE T Wave [place] 44 degrees MUSE Specimen Anatomical Collection Method [...] Bradford M.D. ECG ORDERABLES Performing Organization Address City/[facility] Phon e Number MUSE MUSE NA (ABNORMAL) Troponin T, 2H/6H, 5th Gen (11/12/2020 5:08 PM CDT) [facility] Method Time Signature Troponin T, 2 31 (H) <=15 ng/L 11/12/2020 [facility] hr, 5th gen 5:31 PM CDT 2H Delta 0 ng/L 11/12/2020 [facility] 5:31 PM CDT 2H Delta Not Changing 11/12/2020 [facility] Interp 5:31 PM CDT Troponin T, 6 CANCELED ng/L 11/12/2020 [facility] hr, 5th gen 5:31 PM CDT Comment: Result canceled by the ancmatthew y. Specimen Anatomical Collection Method Collection Time Receive d Time (Source) Location / / Volume Laterality Blood (Blood, 11/12/2020 5:08 PM 11/13/19 5:13 Venous) CDT PM CDT Narrative [facility] - 11/12/2020 5:31 PM CDT Specimen Information: Specimen ID: [id number] Specimen Type: Blood Specimen Collection Start Date: 11/13/19 ??5:08 PM Specimen Received Date: 11/12/2020 ??5:1 3 PM Specimen ID: [id number] Specimen Type: Blood Specimen Collection Start Date: 11/13/19 ??5:30 PM Specimen Received Date: 11/12/2020 ??5:3 0 PM Natasha Rolle M.D., M.P.H. LAB BLOOD TROPONIN Performing Organization Address City/[facility] Phon e Number [facility] [address] [place], [place] [address] [place] [address] [facility] [address] DX Chest Portable 1 View (11/12/2020 3:35 [...] Natasha Rolle M.D., M.P.H. IMG DIAGNOSTIC IMAGING GA OCEDURES Fibrinogen (11/12/2020 3:09 PM CDT) athologist [...] [facility] [address] [place], [place] [address] [place] [address] [facility] 200 [facility] (ABNORMAL) D-Dimer (11/12/2020 3:09 PM CDT) athologist [...] M.P.H. LAB BLOOD ADD-ON Performing Organization Address City/[facility] Phon e Number [facility] - [address] [place] [address] (ABNORMAL) Troponin T, Baseline, 5th gen (11/12/2020 3:09 PM CDT) athologist Signature Troponin T, 31 (H) <=15 ng/L 11/12/2020 RUST Baseline, 5th 3:37 PM CDT gen Specimen Anatomical Collection Method Collection Time Receive d Time (Source) Location / / Volume Laterality Blood (Blood, 11/12/2020 3:09 PM 11/13/19 3:16 Venous) CDT PM CDT Natasha Rolle M.D., M.P.H. LAB BLOOD TROPONIN Performing Organization Address City/[facility] Phon e Number [facility] - [address] Lipase (11/12/2020 3:09 PM CDT) athologist Signature Lipase, S 17 13 - 60 U/L 11/12/2020 3:53 DTL PM CDT Specimen Anatomical Collection Method Collection Time Receive d Time (Source) Location / / Volume Laterality Blood (Blood, 11/12/2020 3:09 PM 11/13/19 21 3:22 Venous) CDT PM CDT Natasha Rolle M.D., M.P.H. LAB BLOOD ADD-ON Performing Organization Address [facility] Phon e Number [facility] - [address] [place] [address] [facility] [place] [address] [facility] 200 [facility] Prothrombin Time (PT) (11/12/2020 3:09 PM CDT) [...] M.P.H. LAB BLOOD ADD-ON Performing Organization Address [facility] Phon e Number [facility] - [address] [place] [phone] [facility] [place] [address] [facility] 200 [facility] (ABNORMAL) NT-Pro B-Type Natriuretic Peptide (BNP) (11/12/2020 3:09 PM CDT) athologist Signature NT-Pro BNP 880 (H) 5 - 89 11/12/2020 [facility] pg/mL 3:40 PM CDT Comment: NT-proBNP values [...] M.P.H. LAB BLOOD ADD-ON Performing Organization Address City/[facility] Code Phon e Number [facility] - [address] [place], [place] [address] [facility] [place] [place] [address] CRP (C-Reactive Protein) (11/12/2020 3:09 PM CDT) P athologist Signature C-Reactive 5.3 <=8.0 mg/L 11/12/2020 DTL Protein (CRP), 3:53 PM CDT S Specimen Anatomical Collection Method Collection Time Receive d Time (Source) Location / / Volume Laterality Blood (Blood, 11/12/2020 3:09 PM 11/13/19 21 3:22 Venous) CDT PM CDT Natasha Rolle M.D., M.P.H. LAB BLOOD ADD-ON Performing Organization Address [facility] Code Phon e Number [facility] - [address] [place], [place] [address] [facility] [place] [address] [facility] (ABNORMAL) Sedimentation Rate (11/12/2020 3:09 PM [...] M.P.H. LAB BLOOD ADD-ON Performing Organization Address City/[facility]/ZIP Code Phon e Number [facility] - 200 [place], [place] [address] [facility] [place] [address] (ABNORMAL) Hepatic Function Panel (11/12/2020 3:09 PM [...] [facility] 200 [place], [place] [address] [place] [address] [facility] (ABNORMAL) Basic Metabolic Panel (11/12/2020 3:09 [...] eGFR-Black/Afri 18 (L) >=60 11/12/2020 [facility] can Lao mL/min/BSA 3:34 PM CDT Comment: ----ADDITIONAL INFORMATION---- Estimated GFR calculated using the 2009 CKD_EPI creatinine equation. eGFR Non-Black/ 16 (L) >=60 mL/min/BSA 11/12/2020 3:34 PM CDT [facility] Comment: ----ADDITIONAL INFORMATION---- Estimated GFR calculated using [...] MEDICAL CENTER [facility] - [address] [place], [place] [address] [facility] [place] [address] [facility] [address] (ABNORMAL) CBC with Differential, Blood (11/12/2020 3:09 PM CDT) [facility] Method Time Signature Hemoglobin 8.7 (L) 13.2 [...] [facility] 200 [place], [place] [address] [place] [address] [facility] 200 [facility] ECG 12 Lead (11/12/2020 3:03 PM CDT) P athologist Signature Ventricular Rate 73 BPM MUSE ECG/Min GA Interval 158 ms MUSE QRSD Interval 92 ms MUSE QT Interval 402 ms MUSE QTC Interval 442 ms MUSE P [place] 75 degrees MUSE R [place] 32 degrees MUSE T Wave [place] 62 degrees MUSE Specimen Anatomical Collection Method [...] mL (DUONEB) 3 mL, nebulization, Once, On Fri11/12/20 at 1701, For 1 dose ipratropium-albuteroL 0.5-2.5 mg/3 mL nebulizer Given 11/12/2020 5:06 PM CDT 3 mL solution 3 mL (DUONEB) 3 mL, nebulization, Once, On [place] 11/12/20 at 1701, For 1 dose ipratropium-albuteroL [...] oral, 2 times daily, First dose on Fri11/12/20 at 2100 Given 11/12/2020 9:03 PM CDT 200 mg levothyroxine tablet 25 mcg (SYNTHROID, Given 11/13/2020 6:22 AM CDT 25 mcg LEVOTHROID) 25 mcg, oral, Daily before breakfast, First dose on Fri11/13/20 at 0700 imzhpoigbfft-xxjr-YL-Ca-minerals 400 mcg Given 11/13/2020 8:58 A M CDT 1 tablet (folic acid) tablet 1 tablet (THERAPEUTI C-M) 1 tablet, oral, Daily, First dose on Fri11/13/20 at 0900 mycophenolate tablet 500 mg (CELLCEPT) Given 11/13/2020 8:58 AM CDT 500 mg 500 mg, oral, 2 times daily, First dose on Fri11/12/20 at 2100, HAZARDOUS - Handle with care. Swallow whole. Do NOT crush, chew or split tablet., Continuation of wjqbv-jv-iviljqfpg therapy? Yes Given 11/12/2020 9:02 PM CDT 500 mg NaCl 0.9 % bolus 500 mL New Bag 11/12/2020 5:46 PM CDT 500 mL 500 mL/hr 500 mL, intravenous, at 500 mL/hr, Administer over 1 Hours, Once, On Fri11/12/20 at 1738, For 1 dose predniSONE tablet 5 mg (DELTASONE) Given 11/13/2020 8:58 AM CDT 5 mg 5 mg, oral, Daily, First dose on Fri11/13/20 at 0900 sennosides-docusate sodium 8.6-50 mg per Given 11/13/2020 8:57 A M CDT 1 tablet tablet 1 tablet (SENOKOT-S) 1 tablet, oral, 2 times daily, First dose on Fri11/12/20 at 2100, Do not give if patient has diarrhea. sodium chloride 0.9 % nebulizer solution 3 mL Given 11/13/2020 12:09 PM CDT 3 mL 3 mL, nebulization, 4 times daily, First dose (after last modification) on Fri11/12/20 at 2100, Administer after DuoNebs and before [...] 08 58 (Given - Provider: Blanca Hernandez R.N.) 81 mg, oral, Daily, First dose on Fri11/13/20 at 0900 atorvastatin tablet 10 mg (LIPITOR) 0857 (Given - Provider: Blanca Hernandez R.N.) 10 mg, oral, Daily, First dose on Fri11/13/20 at 0900 calcium-vitamin D3-vitamin K 650 mg-12.5 mcg (500 Unit)-40 mcg per chewable tablet 1 tablet (VIACTIV) 0855 (Given - Provider: Blanca Hernandez R.N.) 1 tablet, oral, Daily, First dose on Fri11/13/20 at 0900 cholecalciferol (vitamin D3) tablet 25 mcg 0858 (Given - Provider: Blanca Hernandez R.N.) 25 mcg, oral, Daily, First dose on [...] Every 8 hours scheduled, First dose on 11/12/20 at 2200 ipratropium-albuteroL 0.5-2.5 mg/3 mL ne bulizer solution 3 mL (DUONEB) (COMPLETED) 170 (Given - Provider: Johnathan Gallegos, R.R.T., L.R.T.) 3 mL, nebulization, Once, On Fri11/12/20 at 1701, For 1 dose ipratropium-albuteroL 0.5-2.5 mg/3 mL ne bulizer solution 3 mL (DUONEB) (COMPLETED) 170 (Given - Provider: Johntahan Gallegos, R.R.T., L.R.T.) 3 mL, nebulization, Once, On Fri11/12/20 [...] C.M.S.R.N.) 0855 (Given - Provider: Blanca bradley RSteve) 200 mg, oral, 2 times daily, First [...] Daily, First dose on Fri11/13/20 at 0900 hcxhymwmuiok-adhb-AY-Ca-minerals 400 mcg (folic acid) tablet 1 tablet (THERAPEUTIC-M) 0858 (Given - Provid er: Blanca Hernandez R.N.) 1 tablet, oral, Daily, First dose on Fri11/13/20 at 0900 mycophenolate tablet 500 mg (CELLCEPT) 2 102 (Given - Provider: Kathryn Velasquez R.N., C.M.S.R.NDemetrius) 0858 (Given - Provider: Blanca bradley R.N.) 500 mg, oral, 2 times daily, First dose on 11/12/20 at 2100, HAZARDOUS - Handle with care. Swallow whole. Do NOT crush, chew or split tablet., Continuation of kyfot-zz-rsungciuw therapy? Yes NaCl 0.9 % bolus 500 mL (COMPLETED) 1746 (New Bag - Provider: Daily Kumar R.N.)1825 (Stopped - Provider: Daily Kumar R.N.) 500 mL, intravenous, at 500 mL/hr, Admin ister over 1 Hours, Once, On 11/12/20 at 1738, For 1 dose NIFEdipine XL 24 hr tablet 90 mg (PROCARDIA XL) 08 (Not Given - Provider: Blanca Hernandez R.N. - Reason: Patient/family refused - Comment: takes at HS) 90 mg, oral, Daily, First dose on Fri at 0900, Swallow whole. Do NOT crush, chew, or split tablet. predniSONE tablet 5 mg (DELTASONE) 0858 (Given - Provider: Blanca Hernandez R.N.) 5 mg, oral, Daily, First dose on Fri11/13/20 at 0900 sennosides-docusate sodium 8.6-50 mg per tablet 1 tablet (SE NOKOT-S) 2102 (Not Given - Provider: Kathryn Campbell R.N., C.M.S.R.N. - Reason: Patient/family refused) 0857 (Given - Provider: lBanca bradley RDemetriusNDemetrius) 1 tablet, oral, 2 times daily, First dos e on Fri11/12/20 at 2100, Do not give if patient has diarrhea. sodium chloride 0.9 % nebulizer solution 3 mL 2101 (Given - Provider: Kathryn Campbell R.N., C.M.S.R.N.) 08 (Given - Provider: Blanca bradley RDemetriusN.)120 (Given - Provider: Blanca Hernandez R.N.) 3 mL, nebulization, 4 times daily, First dose (after last modification) on Fri11/12/20 at 2100, Administer after DuoNebs and before Aerobika tacrolimus capsule 1 mg (PROGRAF) 2101 ( Given - Provider: Kathryn Velasquez R.N., C.M.S.R.N.) 0856 (Given - Provider: Blanca bradley RDemetriusNDemetrius) 1 mg, oral, 2 times daily, First dose on Fri11/12/20 at 2100 torsemide tablet 30 mg (DEMADEX) 0857 (Given - Provider: Blanca Hernandez R.N.) 30 mg, oral, Daily, First dose on Fri11/13/20 at 0900 ubiquinone tablet 200 mg (COENZYME Q10) 0855 (Given - Provider: Blanca Hernandez R.N.) 200 mg, oral, Daily, First dose (after last reorder) on Mon 11/13 at 0900 PRN Medication Order 11/11/2020 [...] as of this encounter Care Teams Salesperson Jewelry Relationship Specialty Start Date End Date Elsewhere, Pcp PCP - General Family Medicine 07/29/17 [facility] - Laboratory Medicine 04/12/20 [place] [phone] documented as of this encounter
--- OUTSIDE RECORDS SUMMARY | 2022-05-17 18:45 | XMS_ITS | Encounter Summary ---
:1955 Author Organization [facility] Address [address] [place] [address] Care Team Providers Name Role Phone Elsewhere, Pcp Primary Care Provider Unavailable Reason for Visit Reason Onset Date Comments COVID-19 Remote Patient Monitoring 11/06/2020 Symptom Assessment 11/06/2020 Encounter Details Date Type Department Care Team Description 11/06/2020 Remote Monitoring Remote Patient Marilin Smith D-19 Remote Monitoring L, R.N. 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 [address] [place] [phone] 05/23/2022 Clinical Admitting/Central Communication Scheduling 05/27/2022 Comprehensive Visit Orthopedic Surgery Markus Sams M.D., Ph.D. [address] [place] [phone] 05/29/2022 Office Visit Otorhinolaryngology Dex Matta APRN, C.N.P., M.S.N. [address] [place] [phone] 05/29/2022 Office Visit Otorhinolaryngology Nadeem Maradiaga, P.A.-Arley., M.S. [address] [place] [phone] 05/31/2022 Appointment Radiology Guilherme Matt MPAS, PMaryanne., M.S. [address] [place] [phone] 06/05/2022 Appointment Laboratory Medicine Angélica Granger P.A.-C. [address] [place] [phone] 06/19/2022 Appointment Laboratory Medicine Angélica Granger P.A.-C. [address] [place] [phone] 07/03/2022 Appointment Laboratory Medicine Angélica Granger P.A.-C. [address] [place] [phone] 07/17/2022 Appointment Laboratory Medicine Angélica Granger P.A.-C. [address] [place] [phone] 07/31/2022 Appointment Laboratory Medicine Angélica Granger P.A.-C. [address] [place] [phone] 08/14/2022 Appointment Laboratory Medicine Angélica Granger P.A.-C. [address] [place] [phone] 08/28/2022 Appointment Laboratory Medicine Angélica Granger P.A.-C. [address] [place] [phone] documented as of this encounter Visit Diagnoses Diagnosis COVID-19 Infection documented in this encounter Additional Health Concerns Infection Onset Date Last Indicated Resolved Time COVID19 10/30/2020 10/30/2020 11/19/2020 4:45 AM CDT Assessment Noted Time PHQ-9 Depression Total Score: 3 11/22/2019 7:34 AM CDT documented as of this encounter Care Teams Yacht Hand Relationship Specialty Start Date End Date Elsewhere, Pcp PCP - General Family Medicine 07/29/17 [facility] - Laboratory Medicine 04/12/20 [place] [phone] documented as of this encounter
--- OUTSIDE RECORDS SUMMARY | 2022-05-17 18:45 | XMS_ITS | Encounter Summary ---
:1955 Author Organization [facility] Address [address] [place] [address] Care Team Providers Name Role Phone Elsewhere, Pcp Primary Care Provider Unavailable Reason for Referral Outpatient (Routine) - Closed Specialty Diagnoses / Procedures Referred By Contact Refer red To Contact Diagnoses Cough Unspecified Type Connie Aaron [facility] Procedures Esophageal pH Testing [facility] [address] [place] [phone] Referral ID Status Reason Start Date Expiration Date Visits Requ ested Visits Authorized [id number] Closed 10/13/2020 10/13/2021 1 1 Outpatient (Routine) - Closed Specialty Diagnoses / Procedures Referred By Contact Refer red To Contact Diagnoses Cough Unspecified Type Connie Aaron [facility] Procedures Esophageal Manometry [facility] [address] [place], [place] [phone] Referral ID Status Reason Start Date Expiration Date Visits Requ ested Visits Authorized [id number] Closed 10/13/2020 10/13/2021 1 1 Reason for Visit Outpatient (Routine) - Closed Specialty Diagnoses / Procedures Referred By Contact Refer red To Contact Diagnoses [facility] Un[facility] Es[facility] Testing M.[facility] [address] [place], [place] [phone] Referral ID Status Reason Start Date Expiration Date Visits Requ ested Visits Authorized [id number] Closed 10/13/2020 10/13/2021 1 1 Encounter Details Date Type Department Care Team Description 11/21/2020 Hospital Encounter Division of Connie Aaron Cough Gastroenterology in [place], [facility] 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 Transplant Liver (HCC), Medication Therapy It Audit Manager Not Anticoagulant torsemide (DEMADEX) 10 Take [...] sphincter function appeared normal. OVERALL IMPRESSION: #1 [place] Classification: Normal manometry Todd Corey MD documented in this encounter Plan of Treatment Upcoming Encounters Date Type Specialty Care Team Description 05/22/2022 Appointment Laboratory Medicine Angélica Granger P.A.-C. [address] [place] [phone] 05/23/2022 Clinical Admitting/Central Communication Scheduling 05/27/2022 Comprehensive Visit Orthopedic Surgery Markus Sams M.D., Ph.D. [address] [place] [phone] 05/29/2022 Office Visit Otorhinolaryngology Dex Matta APRN, C.N.P., M.S.N. [address] [place] [phone] 05/29/2022 Office Visit Otorhinolaryngology Nadeem Maradiaga P.A.-C., M.S. [address] [place] [phone] 05/31/2022 Appointment Radiology Guilherme Matt MPAS, P.A.-C., M.S. [address] [place] [phone] 06/05/2022 Appointment Laboratory Medicine Angélica Granger P.A.-C. [address] [place] [phone] 06/19/2022 Appointment Laboratory Medicine Angélica Granger P.A.-C. [address] [place] [phone] 07/03/2022 Appointment Laboratory Medicine Angélica Granger P.A.-C. [address] [place] [phone] 07/17/2022 Appointment Laboratory Medicine Angélica Granger P.A.-C. [address] [place] [phone] 07/31/2022 Appointment Laboratory Medicine Angélica Granger P.A.-C. [address] [place] [phone] 08/14/2022 Appointment Laboratory Medicine Angélica Granger P.A.-C. [address] [place] [phone] 08/28/2022 Appointment Laboratory Medicine Angélica Granger P.A.-C. [address] [place] [phone] documented as of this encounter Procedures Procedure Name Priority Date/Time Associated Comments Diagnosis ESOPHAGEAL PH Routine 11/22/2020 1:30 PM Cough Results for this TESTING CDT procedure are i n the results section. [place] ESOPH IMPED Routine 11/21/2020 3:26 PM Cough Results for this FUNCTION TEST CDT procedure are in the results section. [place] ESOPH MOTILITY Routine 11/21/2020 3:26 PM Cough Resu lts for this STUDY CDT procedure are i n the results section. documented in this encounter Results Esophageal pH Testing (11/22/2020 1:30 PM CDT) Narrative [employer] - 11/22/2020 1:30 PM CDT Santana Montiel M.D. ? 11/22/2020 ??3:13 PM Patient: Bruce Singh ?? [phone] Gender: Male Physician: Louie Motniel [id number] Age: ??Referred by: Zuleyka Aaron [id number] : 1955 Toby Maker: Mulugeta rivero RN Height: 177.8cm Medication: Off [...] acidic reflux 00:07 00:07 00:00 Non-acid reflux 00: 00:01 00:00 All reflux 00:09 00:08 00:00 [...] pack number: [id number]. Probe lot duy r: [id number]. Medications off for study, patient does not [...] Barron GI PROCEDURE ORDERABLES Performing Organization Address City/[facility]/ZIP Code Phon e Number [employer] NA [place] ESOPH MOTILITY STUDY, [place] ESOPH IMPED FUNCTION TEST (11/21/2020 3:26 PM [...] sphincter function appeared normal. OVERALL IMPRESSION: #1 [place] Classification: ??Normal mano ry Todd Corey MD Connie Barron GI PROCEDURE ORDERABLES Performing Organization Address City/State/ZIP [...] as of this encounter Care Teams Building Maintenance Mechanic Relationship Specialty Start Date End Date Elsewhere, Pcp PCP - General Family Medicine 07/29/17 [facility] - Laboratory Medicine 04/12/[address] [address] documented as of this encounter
--- OUTSIDE RECORDS SUMMARY | 2022-05-17 18:45 | XMS_ITS | Encounter Summary ---
:1955 Author Organization [facility] Address [address] [place] [address] Care Team Providers Name Role Phone Elsewhere, Pcp Primary Care Provider Unavailable Reason for Visit Reason Onset Date Comments COVID-19 Remote Patient Monitoring 11/19/2020 Graduation 11/19/2020 Encounter Details Date Type Department Care Team Description 11/19/2020 Remote Monitoring Remote Patient Ursula Cross, COVID-1 9 Remote Monitoring R.N. 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 [address] [place] [phone] 05/23/2022 Clinical Admitting/Central Communication Scheduling 05/27/2022 Comprehensive Visit Orthopedic Surgery Markus Sams M.D., Ph.D. [address] [place] [phone] 05/29/2022 Office Visit Otorhinolaryngology Dex Matta APRN, C.N.P., M.S.N. [address] [place] [phone] 05/29/2022 Office Visit Otorhinolaryngology Nadeem Maradiaga, P.Murtaza.-C., M.S. [address] [place] [phone] 05/31/2022 Appointment Radiology Guilherme Matt MPAS, PMaryanne., M.S. [address] [place] [phone] 06/05/2022 Appointment Laboratory Medicine Angélica Granger P.A.-C. [address] [place] [phone] 06/19/2022 Appointment Laboratory Medicine Angélica Granger P.A.-C. [address] [place] [phone] 07/03/2022 Appointment Laboratory Medicine Angélica Granger P.A.-C. [address] [place] [phone] 07/17/2022 Appointment Laboratory Medicine Angélica Granger P.A.-C. [address] [place] [phone] 07/31/2022 Appointment Laboratory Medicine Angélica Granger P.A.-C. [address] [place] [phone] 08/14/2022 Appointment Laboratory Medicine Angélica Granger P.A.-C. [address] [place] [phone] 08/28/2022 Appointment Laboratory Medicine Angélica Granger P.A.-C. [address] [place] [phone] documented as of this encounter Visit Diagnoses Diagnosis COVID-19 Infection documented in this encounter Additional Health Concerns Infection Onset Date Last Indicated Resolved Time COVID19 10/30/2020 10/30/2020 11/19/2020 4:45 AM CDT Assessment Noted Time PHQ-9 Depression Total Score: 3 11/22/2019 7:34 AM CDT documented as of this encounter Care Teams Ticket Printer Relationship Specialty Start Date End Date Elsewhere, Pcp PCP - General Family Medicine 07/29/17 [facility] - Laboratory Medicine 04/12/[address] [address] documented as of this encounter
--- OUTSIDE RECORDS SUMMARY | 2022-05-17 18:45 | XMS_ITS | Encounter Summary ---
:1955 Author Organization [facility] Address [address] [place] [address] Care Team Providers Name Role Phone Elsewhere, Pcp Primary Care Provider Unavailable Reason for Visit Reason Comments Med Refill Encounter Details Date Type Department Care Team Description 11/06[facility]2020 [facility] Leonid Camejo M.D. 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 [address] [place] [phone] 05/23/2022 Clinical Admitting/Central Communication Scheduling 05/27/2022 Comprehensive Visit Orthopedic Surgery Markus Sams M.D., Ph.D. [address] [place] [phone] 05/29/2022 Office Visit Otorhinolaryngology Dex Matta APRN, C.N.P., M.S.N. [address] [place] [phone] 05/29/2022 Office Visit Otorhinolaryngology Nadeem Maradiaga, P.A.-Arley., M.S. [address] [place] [address] [phone] 05/31/2022 Appointment Radiology Guilherme Matt MPAS, PMaryanne., M.S. [address] [place] [address] [phone] 06/05/2022 Appointment Laboratory Medicine Angélica Granger P.A.-C. [address] [place] [address] [phone] 06/19/2022 Appointment Laboratory Medicine Angélica Granger P.A.-C. [address] [place] [phone] 07/03/2022 Appointment Laboratory Medicine Angélica Granger P.A.-C. [address] [place] [phone] 07/17/2022 Appointment Laboratory Medicine Angélica Granger P.A.-C. [address] [place] [phone] 07/31/2022 Appointment Laboratory Medicine Angélica Granger P.A.-C. [address] [place] [phone] 08/14/2022 Appointment Laboratory Angélica Royal P.A.-C. [address] [place] [phone] 08/28/2022 Appointment Laboratory Angélica Royal P.A.-C. [address] [place] [phone] documented as of this encounter Visit Diagnoses Diagnosis Transplant Liver (HCC) documented in this encounter Additional Health Concerns Infection Onset Date Last Indicated Resolved Time COVID19 10/30/2020 10/30/2020 11/19/2020 4:45 AM CDT Assessment Noted Time PHQ-9 Depression Total Score: 3 11/22/2019 7:34 AM CDT documented as of this encounter Care Teams Stage Set Designer Relationship Specialty Start Date End Date Elsewhere, Pcp PCP - General Family Medicine 07/29/[address] [facility] - Laboratory Medicine 04/12/20 [place] [address] documented as of this encounter
--- OUTSIDE RECORDS SUMMARY | 2022-05-17 18:45 | XMS_ITS | Encounter Summary ---
:[address] [facility] Address [address] [place] [address] Care Team Providers Name Role Phone Elsewhere, Pcp Primary Care Provider Unavailable Reason for Visit Reason Onset Date Comments Complex Care Coordination 11/20/2020October Billing Encounter Details Date Type Department Care Team Description 11/20/2020 Remote Monitoring Remote Patient Markos Blanca Tubbs Complex Care Monitoring [address] [place] [address] Coordination (October [facility] [place], [place] Billing ) 200 [facility] [phone] [place], [place] [phone] (Work) Social History Tobacco Use Types Packs/Day [...] Date Recorded 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 [address] [place] [phone] 05/23/2022 Clinical Admitting/Central Communication Scheduling 05/27/2022 Comprehensive Visit Orthopedic Surgery Markus Sams M.D., Ph.D. [address] [place] [phone] 05/29/2022 Office Visit Otorhinolaryngology Dex Matta APRN, C.N.P., M.S.N. [address] [place] [phone] 05/29/2022 Office Visit Otorhinolaryngology Nadeem Maradiaga, P.Murtaza.-Arley., M.S. [address] [place] [address] [phone] 05/31/2022 Appointment Radiology Guilherme Matt MPAS, P.Murtaza.Marie., M.S. [address] [place] [phone] 06/05/2022 Appointment Laboratory Medicine Angélica Granger P.A.-C. [address] [place] [phone] 06/19/2022 Appointment Laboratory Medicine Angélica Granger P.A.-C. [address] [place] [phone] 07/03/2022 Appointment Laboratory Medicine Angélica Granger P.A.-C. [address] [place] [phone] 07/17/2022 Appointment Laboratory Medicine Angélica Granger P.A.-C. [address] [place] [phone] 07/31/2022 Appointment Laboratory Medicine Angélica Granger P.A.-C. [address] [place] [phone] 08/14/2022 Appointment Laboratory Medicine Angélica Granger P.A.-C. [address] [place] [phone] 08/28/2022 Appointment Laboratory Medicine Angélica Granger P.A.-C. [address] [place] [phone] documented as of this encounter Visit Diagnoses Diagnosis COVID-19 Infection documented in this encounter Additional Health Concerns Assessment Noted Time PHQ-9 Depression Total Score: 3 11/22/2019 7:34 AM CDT documented as of this encounter Care Teams Rn Traveling Relationship Specialty Start Date End Date Elsewhere, Pcp PCP - General Family Medicine 07/29/17 [facility] - Laboratory Medicine 04/12/[address] [address] documented as of this encounter
--- OUTSIDE RECORDS SUMMARY | 2022-05-17 18:45 | XMS_ITS | Encounter Summary ---
:1955 Author Organization [facility] Address [address] [place] [address] Care Team Providers Name Role Phone Elsewhere, Pcp Primary Care Provider Unavailable Reason for Referral Outpatient (Routine) - Closed Specialty Diagnoses / Procedures Referred By Contact Refer red To Contact Diagnoses Cough Unspecified Type Connie Aaron [facility] Procedures Esophageal pH Testing Impedance Removal M.B.B.S. [address] [place] [phone] Referral ID Status Reason Start Date Expiration Date Visits Requ ested Visits Authorized [id number] Closed 10/13/2020 10/13/2021 1 1 Reason for Visit Outpatient (Routine) - Closed Specialty Diagnoses / Procedures Referred By Contact Refer red To Contact Diagnoses Cough Unspecified Type Connie Aaron [facility] Procedures Esophageal pH Testing Impedance Removal M.B.B.S. [address] [place] [phone] Referral ID Status Reason Start Date Expiration Date Visits Requ ested Visits Authorized [id number] Closed 10/13/2020 10/13/2021 1 1 Encounter Details Date Type Department Care Team Description 11/22/2020 Hospital Encounter Division of Connie Aaron [facility] in [facility] 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 Medication Therapy Jail Not Anticoagulant sodium chloride USE 4 ML VIA 0 08/30/2020 021 (NEBUSAL) 3 % nebulizer NEBULIZER TWICE solution DAILY tacrolimus (PROGRAF) Take 2 capsules (1 360 capsule 3 202007/16/2021 0.5 mg mg total) by mouth 2 capsuleIndications: (two) times a day. 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 documented as of this encounter Procedure Notes Santana Montiel M.D. - 11/22/2020 1:30 PM CDTAssociated Order(s): ESOPHAGEAL PH TESTING Images from the original note were not included. Patient: Bruce Singh [id number] Gender: Male Physician: Louie Montiel [phone] Age: Referred by: Zuleyka Aaron [phone] : 1955 Shoe Trimmer: Mulugeta Naylor RN Height: 177.8cm Medication: Off [...] Probe pack number: MD06. Probe lot number: [id number]. Medications off for study, patient does not [...] Laboratory Medicine Angélica Granger P.A.-C. [address] [place] [phone] 05/23/2022 Clinical Admitting/Central Communication Scheduling 05/27/2022 Comprehensive Visit Orthopedic Surgery Markus Sams M.D., Ph.D. [address] [place] [phone] 05/29/2022 Office Visit Otorhinolaryngology Dex Matta APRN, C.N.P., M.S.N. [address] [place] [address] [phone] 05/29/2022 Office Visit Otorhinolaryngology Nadeem Maradiaga, PEdgar.Marie., M.S. [address] [place] [address] [phone] 05/31/2022 Appointment Radiology Guilherme Matt MPAS, PMaryanne., M.S. [address] [place] [address] [phone] 06/05/2022 Appointment Laboratory Medicine Angélica Granger P.A.-C. [address] [place] [address] [phone] 06/19/2022 Appointment Laboratory Medicine Angélica Granger P.A.-C. [address] [place] [address] [phone] 07/03/2022 Appointment Laboratory Medicine Angélica Granger P.A.-C. [address] [place] [phone] 07/17/2022 Appointment Laboratory Medicine Angélica Granger P.A.-C. [address] [place] [phone] 07/31/2022 Appointment Laboratory Medicine Angélica Granger P.A.-C. [address] [place] [phone] 08/14/2022 Appointment Laboratory Medicine Angélica Granger P.A.-C. [address] [place] [phone] 08/28/2022 Appointment Laboratory Medicine Angélica Granger P.A.-C. [address] [place] [phone] Scheduled Orders Name Type Priority Associated Diagnoses [...] as of this encounter Care Teams Automobile Club Information Clerk Relationship Specialty Start Date End Date Elsewhere, Pcp PCP - General Family Medicine 07/29/17 [facility] - Laboratory Medicine 04/12/[address] [address] documented as of this encounter
--- OUTSIDE RECORDS SUMMARY | 2022-05-17 18:46 | XMS_ITS | Encounter Summary ---
:1955 Author Organization [facility] Address [address] [place] [address] Care Team Providers Name Role Phone Elsewhere, Pcp Primary Care Provider Unavailable Encounter Details Date Type Department Care Team Description 10/13/[address] 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 [address] [place] [phone] 05/23/2022 Clinical Admitting/Central Communication Scheduling 05/27/2022 Comprehensive Visit Orthopedic Surgery Markus Sams M.D., Ph.D. [address] [place] [phone] 05/29/2022 Office Visit Otorhinolaryngology Dex Matta APRN, C.N.P., M.S.N. [address] [place] [address] [phone] 05/29/2022 Office Visit Otorhinolaryngology Nadeem Maradiaga P.A.-C., M.S. [address] [place] [phone] 05/31/2022 Appointment Radiology Guilherme Matt MPAS, P.A.-C., M.S. [address] [place] [phone] 06/05/2022 Appointment Laboratory Medicine Angélica Granger P.A.-C. [address] [place] [phone] 06/19/2022 Appointment Laboratory Medicine Angélica Granger P.A.-C. [address] [place] [phone] 07/03/2022 Appointment Laboratory Medicine Angélica Granger P.A.-C. [address] [place] [phone] 07/17/2022 Appointment Laboratory Medicine Angélica Granger P.A.-C. [address] [place] [phone] 07/31/2022 Appointment Laboratory Medicine Angélica Granger P.A.-C. [address] [place] [phone] 08/14/2022 Appointment Laboratory Medicine Angélica Granger P.A.-C. [address] [place] [phone] 08/28/2022 Appointment Laboratory Medicine Angélica Granger P.A.-C. [address] [place] [phone] documented as of this encounter Visit Diagnoses Not on filedocumented in this encounter Additional Health Concerns Assessment Noted Time PHQ-9 Depression Total Score: 3 11/22/2019 7:34 AM CDT documented as of this encounter Care Teams Hydropulper Relationship Specialty Start Date End Date Elsewhere, Pcp PCP - General Family Medicine 07/29/17 [facility] - Laboratory Medicine 04/12/[address] [address] documented as of this encounter
--- OUTSIDE RECORDS SUMMARY | 2022-05-17 18:46 | XMS_ITS | Encounter Summary ---
:[address] 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 - 10/31/2020 10:02 AM CDT Patient request to be called back in half hour. documented in this encounter Plan of Treatment Upcoming Encounters Date Type Specialty Care Team Description 05/22/2022 Appointment Laboratory Medicine Angélica Granger P.A.-C. [address] [place] [phone] 05/23/2022 Clinical Admitting/Central Communication Scheduling 05/27/2022 Comprehensive Visit Orthopedic Surgery Markus Sams M.D., Ph.D. [address] [place] [address] [phone] 05/29/2022 Office Visit Otorhinolaryngology Dex Matta APRN, C.N.P., M.S.N. [address] [place] [address] [phone] 05/29/2022 Office Visit Otorhinolaryngology Nadeem Maradiaga P.A.-C., M.S. [address] [place] [phone] 05/31/2022 Appointment Radiology Guilherme Matt MPAS, Edmundo, M.S. [address] [place] [phone] 06/05/2022 Appointment Laboratory Medicine Angélica Granger P.A.-C. [address] [place] [address] [phone] 06/19/2022 Appointment Laboratory Medicine Angélica Granger P.A.-C. [address] [place] [address] [phone] 07/03/2022 Appointment Laboratory Medicine Angélica Granger P.A.-C. [address] [place] [phone] 07/17/2022 Appointment Laboratory Medicine Angélica Granger P.A.-C. [address] [place] [address] [phone] 07/31/2022 Appointment Laboratory Medicine Angélica Granger P.A.-C. [address] [place] [phone] 08/14/2022 Appointment Laboratory Medicine Angélica Granger P.A.-C. [address] [place] [phone] 08/28/2022 Appointment Laboratory Medicine Angélica Granger P.A.-C. [address] [place] [address] [phone] documented as of this encounter Visit Diagnoses Diagnosis COVID-19 Infection - Primary documented in this encounter Additional Health Concerns Infection Onset Date Last Indicated Resolved Time COVID19 10/30/2020 10/30/2020 11/19/2020 4:45 AM CDT Assessment Noted Time PHQ-9 Depression Total Score: 3 11/22/2019 7:34 AM CDT documented as of this encounter Care Teams Custom Frame Assembler Relationship Specialty Start Date End Date Elsewhere, Pcp PCP - General Family Medicine 07/29/17 [facility] - Laboratory Medicine 04/12/[address] [address] documented as of this encounter
--- OUTSIDE RECORDS SUMMARY | 2022-05-17 18:46 | XMS_ITS | Encounter Summary ---
:1955 Author Organization [facility] Address [address] [place] [address] Care Team Providers Name Role Phone Elsewhere, Pcp Primary Care Provider Unavailable Encounter Details Date Type Department Care Team Description 10/30/2020 Lab Department of Kandace Chatman Conta ct With And (Suspected) Exposure To COVID-19; Laboratory Medicine and RAMONA, C. N.P., D.N.P. 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 - 10/30/2020 3:31 PM CDT The patient will be contacted if they are eligible for Monoclonal Antibody Infusion (MASS 1 or greater) and/or Remote Patient Monitoring (MASS 3 or greater). The [place] Covid Care Team (CCT) sends general guidance about COVID-19 to all patients by letter or portal, except when a patient is hospitalized or resides in a jail. CCT will call all adult patients at highest risk for severe complications of COVID-19 (MASS 3 or greater), those without an online services account, and those who require an jet man. Any patient with a MASS score 1 [...] for symptom management. For questions, contact the [place] Covid Care Team ([facility]): Pager: [phone] In basket: P RST/[facility] COVID-19 POSITIVE Covid [...] to obtain the result by calling the [facility] result line or by checking the online services account. documented in this encounter Plan of Treatment Upcoming Encounters Date Type Specialty Care Team Description 05/22/2022 Appointment Laboratory Medicine Angélica Granger P.A.-C. [address] [place] [phone] 05/23/2022 Clinical Admitting/Central Communication Scheduling 05/27/2022 Comprehensive Visit Orthopedic Surgery Markus Sams M.D., Ph.D. [address] [place] [phone] 05/29/2022 Office Visit Otorhinolaryngology Dex Matta, MEASUREMENT PSYCHOLOGIST, C.N.P., M.S.N. [address] [place] [phone] 05/29/2022 Office Visit Otorhinolaryngology Nadeem Maradiaga, P.Murtaza.-Arley., M.S. [address] [place] [phone] 05/31/2022 Appointment Radiology Guilherme Matt MPAS, Jennifer., M.S. [address] [place] [address] [phone] 06/05/2022 Appointment Laboratory Medicine Angélica Granger P.A.-C. [address] [place] [phone] 06/19/2022 Appointment Laboratory Medicine Angélica Granger P.A.-C. [address] [place] [phone] 07/03/2022 Appointment Laboratory Medicine Angélica Granger P.A.-C. [address] [place] [phone] 07/17/2022 Appointment Laboratory Medicine Angélica Granger P.A.-C. [address] [place] [phone] 07/31/2022 Appointment Laboratory Medicine Angélica Granger P.A.-C. [address] [place] [phone] 08/14/2022 Appointment Laboratory Medicine Angélica Granger P.A.-C. [address] [place] [phone] 08/28/2022 Appointment Laboratory Medicine Angélica Granger P.A.-C. [address] [place] [phone] documented as of this encounter Procedures Procedure [...] S Mut, V (11/14/2020 6:06 AM CDT) [facility] Method Time Signature SARS-CoV-2 PANGO B.1.1.7 11/22/2020 [facility] lineage 9:19 AM CDT SARS-CoV-2 20I 11/22/2020 [facility] Nextstrain clade 9:19 AM CDT S codon N501Y, 11/22/2020 [facility] mutations of A570D, 9:19 AM CDT interest D614G, P681H, T716I, H69-V70 deletion, Y144 deletion S mutations of S982A, 11/22/2020 [facility] unknown [id number], 9:19 AM CDT significance [id number] Comment: This/these mutation(s) was/were detected , but it/they has/have not been associated with an impact on viral trans mission, disease severity, or vaccine/therapeutic efficacy. SARS-CoV-2 Specimen Source Nasopharynx 11/22/2020 9:19 AM CDT [facility] Recent Positive PCR Result within 5 Yes 07/2020 9:19 AM CDT [facility] days? Comment: ----ADDITIONAL INFORMATION---- Please see https://Digium.AltspaceVR/test-catalog/ Overview/924465 for explanation of test results. Testing was performed using the [employer] SARS-CoV-2 Research Panel ([employer]) on the Swifto Sequencer. Sequence results were analyzed with the most curr ent web versions of the Pangolin lineage assignment application https://c ov-lineages.org/pangolin.html and Nextclade clade assignment and mutation calling application https://clades.nextstrain.org This test was developed and its performa nce characteristics determined by [facility] in a manner consistent with CLIA requirements. This test has not been cleared or approved by the U.S. Mer d and Drug Administration. Specimen Anatomical Collection Method Collection Time Receive d Time (Source) Location / / Volume Laterality Varies 11/14/2020 6:06 AM 6:06 CDT AM CDT Kandace Chatman APRN, Arley.N.P., D.N.P. LAB MICROBIOL OGY - GENERAL ORDERABLES Performing Organization Address City/[facility] Code Phon e Number [facility] [address] [place], [place] [address] SUPPORT C[facility] [place] [address] Laboratory Medicine and Pathology [address] [place] (ABNORMAL) SARS CoV-2 RNA, PCR, Varies Asymptomatic (10/30/2020 11:15 AM CDT) [facility] Method Time Signature SARS CoV-2 Swab, 10/30/2020 [facility] RNA, PCR, Nasopharynx 3:09 PM CDT Source SARS CoV-2 Detected (A) Undetected 10/30/2020 [facility] RNA, PCR 3:09 PM CDT Comment: SARS-CoV-2 RNA present. ----ADDITIONAL INFORMATION---- This RT-PCR test has received Emergency Use Authorization (EUA) by the U.S. Food and Drug Administration an d is used per corporate development officer's instructions. Performance characteristics were verified by [facility] in a manner consistent with CLIA requirements. Visit the CDC website: https://www.cdc.g ov/coronavirus/ for the most recent guidelines on Coron avirus testing. Fact Sheet for Healthcare Providers: https://www.fda.gov/media/629075/downloa d Fact Sheet for Patients: https://www.fda.gov/media/707785/downloa d Specimen Anatomical Collection Method Collection Time Receive d Time (Source) Location / / Volume Laterality Varies 10/30/2020 11:15 10/30/2020 (Nasopharynx) AM CDT 11:48 AM CDT Kandace Chatman APRN, C.N.P., D.N.P. LAB MICROBIOL OGY - GENERAL ORDERABLES Performing Organization Address City/State/[facility] Code Phon e Number [facility] - [address] [place], [place] [address] [facility] [place] [address] Laboratories-[facility] [address] [...] as of this encounter Care Teams Timber Sprinkler Relationship Specialty Start Date End Date Elsewhere, Pcp PCP - General Family Medicine 07/29/17 [facility] - Laboratory Medicine 04/12/[address] [address] documented as of this encounter
--- OUTSIDE RECORDS SUMMARY | 2022-05-17 18:46 | XMS_ITS | Encounter Summary ---
:1955 Author Organization [facility] Address [address] [place] [address] Care Team Providers Name Role Phone Elsewhere, Pcp Primary Care Provider Unavailable Encounter Details Date Type Department Care Team Description 10/30/2020 Virtual Visit Department of AricKavita alcantara [place] [address] Infection Community Internal Sada Azevedo, M.P. H. 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 - 10/30/2020 3:17 PM CDT Images from the original note were not included. TELEPHONE COMMUNICATION NOTE This was a telephone notification to Mr. Singh to notify them that their PCR test for SARS-CoV-2 (the virus that causes COVID-19) has returned positive. The patient was interviewed, but not personally examined. Strategic Partnership Manager: no Currently Mr. Singh has the following symptoms: none. He has had fatigue for 3 weeks, and has had chronic pulmonary symptoms for the past year. He completed his vaccine series in August and had a negative COVID test in August. Mr. Snigh has the following risk factors for severe infection: liver transplant Additional household members: ; MASS Score: RESULTS Microbiology Results (last 10 days) Procedure Component Value - Date/Time SARS CoV-2 RNA, PCR, Varies Asymptomatic [[id number]] (Abnormal) Collected: 10/30/20 1115 Lab Status: Final result Specimen: Varies from Nasopharynx Updated: 10/30/20 1510 SARS CoV-2 RNA, PCR, Source Swab, Nasopharynx SARS CoV-2 RNA, PCR Detected Comment: SARS-CoV-2 RNA present. ----ADDITIONAL INFORMATION---- This RT-PCR test has received Emergency Use Authorization (EUA) by the U.S. Food and Drug Administration and is used per power saw operator's instructions. Performance characteristics were verified by [facility] in a manner consistent with CLIA requirements. Visit the CDC website: https://www.cdc.gov/coronavirus/ for the most recent guidelines on Coronavirus testing. Fact Sheet for Healthcare Providers: https://www.fda.gov/media/341924/download Fact Sheet for Patients: https://www.fda.gov/media/511824/download ASSESSMENT/PLAN #1 COVID-19 disease Duration of Isolation [...] their primary care provider should notify the [place] Covid Care Team by paging the [facility] provider of the day, sending an In [...] Flag The COVID infection flag in the [place] Chart will 20 days from the date [...] which time the patient may return to [facility] for onsite appointments. [email or web address] Quarantine of household members/close contacts [facility] continues to recommend 14 days quarantine for [...] end home isolation. Kavita Corbett M.D., M.P.H. [place] COVID Care Team [facility] and [facility] This was a virtual visit. The patient was not seen face to face because of COVID-19. Total time spent in counselin minutes documented in this encounter Plan of Treatment Upcoming Encounters Date Type Specialty Care Team Description 05/22/2022 Appointment Laboratory Medicine Angélica Granger P.A.-C. [address] [place] [phone] 05/23/2022 Clinical Admitting/Central Communication Scheduling 05/27/2022 Comprehensive Visit Orthopedic Surgery Markus Sams M.D., Ph.D. [address] [place] [phone] 05/29/2022 Office Visit Otorhinolaryngology Dex Matta APRN, C.N.P., M.S.N. [address] [place] [phone] 05/29/2022 Office Visit Otorhinolaryngology Nadeem Maradiaga, Miri.Marie., M.S. [address] [place] [phone] 05/31/2022 Appointment Radiology Guilherme Matt MPAS, Jennifer., M.S. [address] [place] [phone] 06/05/2022 Appointment Laboratory Medicine Angélica Granger P.A.-C. [address] [place] [phone] 06/19/2022 Appointment Laboratory Medicine Angélica Granger P.A.-C. [address] [place] [phone] 07/03/2022 Appointment Laboratory Medicine Angélica Granger P.A.-C. [address] [place] [phone] 07/17/2022 Appointment Laboratory Medicine Angélica Granger P.A.-C. [address] [place] [phone] 07/31/2022 Appointment Laboratory Medicine Angélica Granger P.A.-C. [address] [place] [phone] 08/14/2022 Appointment Laboratory Medicine Angélica Granger P.A.-C. [address] [place] [phone] 08/28/2022 Appointment Laboratory Medicine Angélica Granger P.A.-C. [address] [place] [phone] documented as of this encounter Visit Diagnoses Diagnosis COVID-19 Infection - Primary documented in this encounter Additional Health Concerns Infection Onset Date Last Indicated Resolved Time COVID19 Pending 10/30/2020 10/30/2020 10/30/2020 3:10 PM CDT COVID19 10/30/2020 10/30/2020 11/19/2020 4:45 AM CDT Assessment Noted Time PHQ-9 Depression Total Score: 3 11/22/2019 7:34 AM CDT documented as of this encounter Care Teams Nurse Auditor Relationship Specialty Start Date End Date Elsewhere, Pcp PCP - General Family Medicine 07/29/17 [facility] - Laboratory Medicine 04/12/[address] [address] documented as of this encounter
--- OUTSIDE RECORDS SUMMARY | 2022-05-17 18:46 | XMS_ITS | Encounter Summary ---
:1955 Author Organization [facility] Address [address] [place] [address] Care Team Providers Name Role Phone Elsewhere, Pcp Primary Care Provider Unavailable Reason for Visit Transplant (Routine) - Closed Specialty Diagnoses / Procedures Referred By Contact Refer red To Contact [facility] Zofia Leyva M.D. [address] [place] [phone] Referral ID Status Reason Start Date Expiration Date Visits Requ ested Visits Authorized [id number] Closed 10/03/2020 10/03/2021 1 1 Encounter Details Date Type Department Care Team Description 10/12/2020 Virtual Visit Curt Ramos Bi polar Most Recent Episode Manic Full Remission (HCC) (Primary Dx); [facility] Moderate Or Sev ere Use Disorder (Dependence) Alcohol Remission (HCC) Transplantation and Sada Clinical Regeneration in [address] [place] [address] [place] [phone] [place] [phone] Social History Tobacco Use Types Packs/Day [...] 12/15/2021 organizations such as methodist groups, unions, fraCommissioner or athletic groups, or school groups? 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 - 10/12/2020 8:30 AM CDT Psychiatry Follow up Visit Bruce Singh [address] [facility] [phone] 65 y.o. NON-FACE to FACE PHONE VISIT A phone call care discussion in the setting of the national COVID 19 pandemic was completed consistent with the [facility] institutional direction. This visit was completed by telephone call today. History of Present Illness: I interviewed the patient and reviewed the [facility] record at the time of this evaluation. He is s/p liver transplant in 2012 and is being followed for end stage renal disease not on dialysis. He reports that he is doing fairly well. He notes that the last year has been stressful due to the effectsof COVID restrictions. [place]. . He has [...] Laboratory Medicine Angélica Granger P.A.-C. [address] [place] [phone] 05/23/2022 Clinical Admitting/Central Communication Scheduling 05/27/2022 Comprehensive Visit Orthopedic Surgery Markus Sams M.D., Ph.D. [address] [place] [phone] 05/29/2022 Office Visit Otorhinolaryngology Dex Matta APRN, C.N.P., M.S.N. [address] [place] [phone] 05/29/2022 Office Visit Otorhinolaryngology Nadeem Maradiaga P.A.-Arley., M.S. [address] [place] [phone] 05/31/2022 Appointment Radiology Guilherme Matt MPAS, Edmundo, M.S. [address] [place] [phone] 06/05/2022 Appointment Laboratory Medicine Angélica Granger P.A.-C. [address] [place] [phone] 06/19/2022 Appointment Laboratory Medicine Angélica Granger P.A.-C. [address] [place] [phone] 07/03/2022 Appointment Laboratory Medicine Angélica Granger P.A.-C. [address] [place] [phone] 07/17/2022 Appointment Laboratory Medicine Angélica Granger P.A.-C. [address] [place] [phone] 07/31/2022 Appointment Laboratory Medicine Angélica Granger P.A.-C. [address] [place] [phone] 08/14/2022 Appointment Laboratory Medicine Angélica Granger P.A.-C. [address] [place] [phone] 08/28/2022 Appointment Laboratory Medicine Angélica Granger P.A.-C. [address] [place] [phone] documented as of this encounter Visit Diagnoses Diagnosis Bipolar Most Recent Episode Manic Full R emission (HCC) - Primary Moderate Or Severe Use Disorder (Depende nce) Alcohol Remission (HCC) documented in this encounter Additional Health Concerns Assessment Noted Time PHQ-9 Depression Total Score: 3 11/22/2019 7:34 AM CDT documented as of this encounter Care Teams Ham Sawyer Relationship Specialty Start Date End Date Elsewhere, Pcp PCP - General Family Medicine 07/29/17 [facility] - Laboratory Medicine 04/12/20 [place] [address] documented as of this encounter
--- OUTSIDE RECORDS SUMMARY | 2022-05-17 18:46 | XMS_ITS | Encounter Summary ---
:1955 Author Organization [facility] Address [address] [place] [address] Care Team Providers Name Role Phone Elsewhere, Pcp Primary Care Provider Unavailable Reason for Visit Reason Comments [facility] Nurse Line Encounter Details Date Type Department Care Team Description 10/30/2020 Clinical Communication Division of SHERIDAN [place] Nurse Makayla [facility] Internal Zuleika Santana [facility], [facility] in [place], [place] [address] [place] [address] Social History Tobacco Use Types Packs/Day Years [...] Date Recorded 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 [address] [place] [phone] 05/23/2022 Clinical Admitting/Central Communication Scheduling 05/27/2022 Comprehensive Visit Orthopedic Surgery Markus Sams M.D., Ph.D. [address] [place] [phone] 05/29/2022 Office Visit Otorhinolaryngology Dex Matta APRN, C.N.P., M.S.N. [address] [place] [phone] 05/29/2022 Office Visit Otorhinolaryngology Nadeem Maradiaga, Edmundo, M.S. [address] [place] [phone] 05/31/2022 Appointment Radiology Guilherme Matt MPAS, P.A.-C., M.S. [address] [place] [phone] 06/05/2022 Appointment Laboratory Medicine Angélica Granger P.A.-C. [address] [place] [phone] 06/19/2022 Appointment Laboratory Medicine Angélica Granger P.A.-C. [address] [place] [phone] 07/03/2022 Appointment Laboratory Medicine Angélica Granger P.A.-C. [address] [place] [phone] 07/17/2022 Appointment Laboratory Medicine Anéglica Granger P.A.-C. [address] [place] [phone] 07/31/2022 Appointment Laboratory Medicine Angélica Granger P.A.-C. [address] [place] [phone] 08/14/2022 Appointment Laboratory Medicine Angélica Granger P.A.-C. [address] [place] [phone] 08/28/2022 Appointment Laboratory Medicine Angélica Granger P.A.-C. [address] [place] [phone] documented as of this encounter Visit Diagnoses Not on filedocumented in this encounter Additional Health Concerns Infection Onset Date Last Indicated Resolved Time COVID19 Pending 10/30/2020 10/30/2020 10/30/2020 3:10 PM CDT COVID19 10/30/2020 10/30/2020 11/19/2020 4:45 AM CDT Assessment Noted Time PHQ-9 Depression Total Score: 3 11/22/2019 7:34 AM CDT documented as of this encounter Care Teams Drawbench Operator Relationship Specialty Start Date End Date Elsewhere, Pcp PCP - General Family Medicine 07/29/17 [facility] - Laboratory Medicine 04/12/20 [place] [address] documented as of this encounter
--- OUTSIDE RECORDS SUMMARY | 2022-05-17 18:46 | XMS_ITS | Encounter Summary ---
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 Where appropriate and as indicated, these devices meet FDA Class II certifications as medical devices: ? ? Blood Pressure Monitor: [employer] Medical Blood Pressure Monitor model WZ-136ACL-Je (FDA M839938) or Gautam [place] Blood Pressure Monitor model H-[id number] (FDA D416696) ? ? Weight Scale: [employer] Weight Scale model XL-700, Gautam [place] Weight Scale model 999350, or [employer] Medical Weight Scale model GE-911LWE-Ff ??? Pulse Oximeter: Nonin Pulse Oximeter model 3230 (FDA H380664) or Nonin Pulse Oximeter model 9560(FDA Q891747) ? ? Thermometer: [employer] Medical Thermometer model DT-105 or [facility] Basal Thermometer model 08-365 ??? Continuous Monitor: Everion V1 (FDA [id number]) documented in this encounter Plan of Treatment Upcoming Encounters Date Type Specialty Care Team Description 05/22/2022 Appointment Laboratory Medicine Angélica Granger P.A.-C. [address] [place] [phone] 05/23/2022 Clinical Admitting/Central Communication Scheduling 05/27/2022 Comprehensive Visit Orthopedic Surgery Markus Sams M.D., Ph.D. [address] [place] [phone] 05/29/2022 Office Visit Otorhinolaryngology Dex Matta APRN, C.N.P., M.S.N. [address] [place] [address] [phone] 05/29/2022 Office Visit Otorhinolaryngology Nadeem Maradiaga, P.Murtaza.-C., M.S. [address] [place] [phone] 05/31/2022 Appointment Radiology Guilherme Matt, RASTA, PMaryanne., M.S. [address] [place] [phone] 06/05/2022 Appointment Laboratory Medicine Angélica Granger P.A.-C. [address] [place] [address] [phone] 06/19/2022 Appointment Laboratory Medicine Angélica Granger P.A.-C. [address] [place] [phone] 07/03/2022 Appointment Laboratory Medicine Angélica Granger P.A.-C. [address] [place] [phone] 07/17/2022 Appointment Laboratory Medicine Angélica Granger P.A.-C. [address] [place] [phone] 07/31/2022 Appointment Laboratory Medicine Angélica Granger P.A.-C. [address] [place] [phone] 08/14/2022 Appointment Laboratory Medicine Angélica Granger P.A.-C. [address] [place] [phone] 08/28/2022 Appointment Laboratory Medicine Angélica Granger P.A.-C. [address] [place] [phone] documented as of this encounter Visit Diagnoses Not on filedocumented in this encounter Additional Health Concerns Infection Onset Date Last Indicated Resolved Time COVID19 10/30/2020 10/30/2020 11/19/2020 4:45 AM CDT Assessment Noted Time PHQ-9 Depression Total Score: 3 11/22/2019 7:34 AM CDT documented as of this encounter Care Teams Mechanical Cad Drafter Relationship Specialty Start Date End Date Elsewhere, Pcp PCP - General Family Medicine 07/29/17 [facility] - Laboratory Medicine 04/12/20 [place] [address] documented as of this encounter
--- OUTSIDE RECORDS SUMMARY | 2022-05-17 18:46 | XMS_ITS | Encounter Summary ---
:1955 Author Organization [facility] Address [address] [place] [address] Care Team Providers Name Role Phone Elsewhere, Pcp Primary Care Provider Unavailable Reason for Visit Reason Comments Patient Education Encounter Details Date Type Department Care Team Description 10/31/2020 Clinical Communication Department of Stephy Mays Education Infusion Therapy in [place], [facility] [place] [address] [place], [place] [address] [facility] [address] [address] [place], [place] [phone] (Work) [phone] Social History Tobacco Use Types Packs/Day Years [...] Date Recorded 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 - 10/31/2020 9:05 AM CDT SUBJECTIVE CHIEF COMPLAINT / REASON FOR CALL Patient Education Information Discussed Hi, my name is Angela Mays R.N. from [facility] with a recommendation that you receive a [...] developing area and this is a new [facility] recommended treatment option for you. In the [...] for the treatment of mild COVID-19 . [facility] supports this treatment for certain people. I [...] the [place], outside or through the [facility] of the [place] in the last week? No Tell your healthcare provider about all of your medical conditions, including if you: ??? Have any allergies ??? Are or plan to become ??? Are or plan to breastfeed ??? Have any serious illnesses ??? Are taking any medications (prescription, ojht-did-lbvukra, vitamins, and herbal products) How will I [...] vaccination. We wanted you to know that [facility] is encouraging you to treat the illness you have now, this will help you right away and emt intermediate while still being eligible for the vaccine. [...] to share with you that since april [facility] has infused over 5300 patients witha monoclonal antibody infusion across our [place] sites. I am sharing this because we [...] to treat people with COVID-19. Go to https://www.utjfp66kxaonxejmoqeuvdfccv.nih.gov/ for information on the emergency use of [...] effects to FDA MedWatch at www.fda.gov/medwatch, call 2-414-YUV-6580. How can I learn more? Ask your healthcare provider ??? Visit https://www.ogdsx34hlslbqfdlvbazyxajln.nih.gov/ ??? Contact your local or state public health department Would you like to learn more about what an Emergency Use Authorization ( EUA)?Yes; [facility] has made these monoclonal antibody infusions available under an emergency access mechanism called an EUA. The EUA is supported by a Fighting Vehicle Infantryman of Health and Human Service (HHS) declaration that circumstances exist to justify the emergency use of drugs and biological products during the COVID-19 pandemic. What is the cost for this medication? The medication is provided to [facility] at no charge and there is not cost of the medication to you the patient. Any associated costs with the infusion will be billed to the patient's insurance company. [facility] does not want cost to be a [...] will be provided to patient/caregiver at the [facility]. Thank you for your time, I will [...] Laboratory Medicine Angélica Granger P.A.-C. [address] [place] [phone] 05/23/2022 Clinical Admitting/Central Communication Scheduling 05/27/2022 Comprehensive Visit Orthopedic Surgery Markus Sams M.D., Ph.D. [address] [place] [phone] 05/29/2022 Office Visit Otorhinolaryngology Dex Matta APRN, C.N.P., M.S.N. [address] [place] [phone] 05/29/2022 Office Visit Otorhinolaryngology Nadeem Maradiaga, P.A.-C., M.S. [address] [place] [phone] 05/31/2022 Appointment Radiology Guilherme Matt MPAS, P.A.-C., M.S. [address] [place] [phone] 06/05/2022 Appointment Laboratory Medicine Angélica Granger P.A.-C. [address] [place] [phone] 06/19/2022 Appointment Laboratory Medicine Angélica Granger P.A.-C. [address] [place] [phone] 07/03/2022 Appointment Laboratory Medicine Angélica Granger P.A.-C. [address] [place] [phone] 07/17/2022 Appointment Laboratory Medicine Angélica Granger P.A.-C. [address] [place] [phone] 07/31/2022 Appointment Laboratory Medicine Angélica Granger P.A.-C. [address] [place] [phone] 08/14/2022 Appointment Laboratory Medicine Angélica Granger P.A.-C. [address] [place] [phone] 08/28/2022 Appointment Laboratory Medicine Angélica Granger P.A.-C. [address] [place] [phone] documented as of this encounter Visit Diagnoses Not on filedocumented in this encounter Additional Health Concerns Infection Onset Date Last Indicated Resolved Time COVID19 10/30/2020 10/30/2020 11/19/2020 4:45 AM CDT Assessment Noted Time PHQ-9 Depression Total Score: 3 11/22/2019 7:34 AM CDT documented as of this encounter Care Teams Bread Slicer Machine Relationship Specialty Start Date End Date Elsewhere, Pcp PCP - General Family Medicine 07/29/17 [facility] - Laboratory Medicine 04/12/20 [place] [phone] documented as of this encounter
--- OUTSIDE RECORDS SUMMARY | 2022-05-17 18:46 | XMS_ITS | Encounter Summary ---
:1955 Author Organization [facility] Address [address] [place] [address] Care Team Providers Name Role Phone Elsewhere, Pcp Primary Care Provider Unavailable Reason for Visit Reason Onset Date Comments COVID-19 Remote Patient Monitoring 11/02/2020 Intake Assessment 11/02/2020 Encounter Details Date Type Department Care Team Description 11/02/2020 Remote Monitoring Remote Patient Cheyenne Kerr D-19 Remote Monitoring L, R.N. 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 [facility] and the [facility] Disease [facility] [...] Laboratory Medicine Angélica Granger P.A.-C. [address] [place] [phone] 05/23/2022 Clinical Admitting/Central Communication Scheduling 05/27/2022 Comprehensive Visit Orthopedic Surgery Markus Sams M.D., Ph.D. [address] [place] [phone] 05/29/2022 Office Visit Otorhinolaryngology Dex Matta APRN, CDemetriusN.P., M.S.N. [address] [place] [phone] 05/29/2022 Office Visit Otorhinolaryngology Nadeem Maradiaga, PMaryanne., M.S. [address] [place] [phone] 05/31/2022 Appointment Radiology Guilherme Matt, RASTA, Jennifer., M.S. [address] [place] [phone] 06/05/2022 Appointment Laboratory Medicine Angélica Granger P.A.-C. [address] [place] [phone] 06/19/2022 Appointment Laboratory Medicine Angélica Granger P.A.-C. [address] [place] [phone] 07/03/2022 Appointment Laboratory Medicine Angélica Granger P.A.-C. [address] [place] [phone] 07/17/2022 Appointment Laboratory Medicine Angélica Granger P.A.-C. [address] [place] [phone] 07/31/2022 Appointment Laboratory Medicine Angélica Granger P.A.-C. [address] [place] [phone] 08/14/2022 Appointment Laboratory Medicine Angélica Granger P.A.-C. [address] [place] [phone] 08/28/2022 Appointment Laboratory Medicine Angélica Granger P.A.-C. [address] [place] [phone] documented as of this encounter Visit Diagnoses Not on filedocumented in this encounter Additional Health Concerns Infection Onset Date Last Indicated Resolved Time COVID19 10/30/2020 10/30/2020 11/19/2020 4:45 AM CDT Assessment Noted Time PHQ-9 Depression Total Score: 3 11/22/2019 7:34 AM CDT documented as of this encounter Care Teams Transit Driver Relationship Specialty Start Date End Date Elsewhere, Pcp PCP - General Family Medicine 07/29/[address] [facility] - Laboratory Medicine 04/12/[address] [address] documented as of this encounter
--- OUTSIDE RECORDS SUMMARY | 2022-05-17 18:46 | XMS_ITS | Encounter Summary ---
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 [address] [place] [phone] 05/23/2022 Clinical Admitting/Central Communication Scheduling 05/27/2022 Comprehensive Visit Orthopedic Surgery Markus Sams M.D., Ph.D. [address] [place] [phone] 05/29/2022 Office Visit Otorhinolaryngology Dex Matta, RAMONA, C.N.P., M.S.N. [address] [place] [address] [phone] 05/29/2022 Office Visit Otorhinolaryngology Nadeem Maradiaga, P.A.-C., M.S. [address] [place] [address] [phone] 05/31/2022 Appointment Radiology Guilherme Matt MPAS, P.Murtaza.-Arley., M.S. [address] [place] [phone] 06/05/2022 Appointment Laboratory Medicine Angélica Granger P.A.-C. [address] [place] [phone] 06/19/2022 Appointment Laboratory Medicine Angélica Granger P.A.-C. [address] [place] [address] [phone] 07/03/2022 Appointment Laboratory Medicine Angélica Granger P.A.-C. [address] [place] [phone] 07/17/2022 Appointment Laboratory Medicine Angélica Granger P.A.-C. [address] [place] [phone] 07/31/2022 Appointment Laboratory Medicine Angélica Granger P.A.-C. [address] [place] [phone] 08/14/2022 Appointment Laboratory Medicine Angélica Granger P.A.-C. [address] [place] [phone] 08/28/2022 Appointment Laboratory Medicine Angélica Granger P.A.-CDemetrius [address] [place] [phone] documented as of this encounter Visit Diagnoses Not on filedocumented in this encounter Additional Health Concerns Infection Onset Date Last Indicated Resolved Time COVID19 10/30/2020 10/30/2020 11/19/2020 4:45 AM CDT Assessment Noted Time PHQ-9 Depression Total Score: 3 11/22/2019 7:34 AM CDT documented as of this encounter Care Teams Paving Rammer Relationship Specialty Start Date End Date Elsewhere, Pcp PCP - General Family Medicine 07/29/17 [facility] - Laboratory Medicine 04/12/[address] [address] documented as of this encounter
--- OUTSIDE RECORDS SUMMARY | 2022-05-17 18:46 | XMS_ITS | Encounter Summary ---
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 [address] [place] [phone] 05/23/2022 Clinical Admitting/Central Communication Scheduling 05/27/2022 Comprehensive Visit Orthopedic Surgery Markus Sams M.D., Ph.D. [address] [place] [address] [phone] 05/29/2022 Office Visit Otorhinolaryngology Dex Matta, RAMONA, C.N.P., M.S.N. [address] [place] [address] [phone] 05/29/2022 Office Visit Otorhinolaryngology Nadeem Maradiaga, P.A.-C., M.S. [address] [place] [address] [phone] 05/31/2022 Appointment Radiology Guilherme Matt MPAS, P.Murtaza.-Arley., M.S. [address] [place] [phone] 06/05/2022 Appointment Laboratory Medicine Angélica Granger P.A.-C. [address] [place] [phone] 06/19/2022 Appointment Laboratory Medicine Angélica Granger P.A.-C. [address] [place] [address] [phone] 07/03/2022 Appointment Laboratory Medicine Angélica Granger P.A.-C. [address] [place] [phone] 07/17/2022 Appointment Laboratory Medicine Angélica Granger P.A.-C. [address] [place] [phone] 07/31/2022 Appointment Laboratory Medicine Angélica Granger P.A.-C. [address] [place] [phone] 08/14/2022 Appointment Laboratory Medicine Angélica Granger P.A.-C. [address] [place] [phone] 08/28/2022 Appointment Laboratory Medicine Angélica Granger P.A.-CDemetrius [address] [place] [phone] documented as of this encounter Visit Diagnoses Not on filedocumented in this encounter Additional Health Concerns Infection Onset Date Last Indicated Resolved Time COVID19 10/30/2020 10/30/2020 11/19/2020 4:45 AM CDT Assessment Noted Time PHQ-9 Depression Total Score: 3 11/22/2019 7:34 AM CDT documented as of this encounter Care Teams Ore Feeder Relationship Specialty Start Date End Date Elsewhere, Pcp PCP - General Family Medicine 07/29/[address] [facility] - Laboratory Medicine 04/12/[address] [address] documented as of this encounter
--- OUTSIDE RECORDS SUMMARY | 2022-05-17 18:46 | XMS_ITS | Encounter Summary ---
:1955 Author Organization [facility] Address [address] [place] [address] Care Team Providers Name Role Phone Elsewhere, Pcp Primary Care Provider Unavailable Reason for Referral Outpatient (Routine) - Closed Specialty Diagnoses / Procedures Referred By Contact Refer red To Contact Diagnoses Transplant Liver (HCC) Medication Therapy Supervisor Finishing Not Anticoagulant COVID-19 Infection Trung Plasencia P.A.-C., [facility] Procedures COVID - General eConsult (Adults Only) Clinical Evaluation; Enroll in COVID Care Program M.S. [address] [place] [address] Referral ID Status Reason Start Date Expiration Date Visits Requ ested Visits Authorized [id number] Closed 10/31/2020 10/31/2021 1 1 Encounter Details Date Type Department Care Team Description 10/31/2020 Orders Only Yolie Gamez Trans plant Liver (HCC) (Primary Dx); [facility] R, R. N. 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 [address] [place] [phone] 05/23/2022 Clinical Admitting/Central Communication Scheduling 05/27/2022 Comprehensive Visit Orthopedic Surgery Markus Sams M.D., Ph.D. [address] [place] [address] 05/29/2022 Office Visit Otorhinolaryngology Dex Matta APRN C.N.P., M.S.N. [address] [place] [phone] 05/29/2022 Office Visit Otorhinolaryngology Nadeem Maradiaga P.A.-C., M.S. [address] [place] [phone] 05/31/2022 Appointment Radiology Guilherme Matt MPAS, P.A.-C., M.S. [address] [place] [phone] 06/05/2022 Appointment Laboratory Medicine Angélica Granger P.A.-C. [address] [place] [phone] 06/19/2022 Appointment Laboratory Medicine Angélica Granger P.A.-C. [address] [place] [phone] 07/03/2022 Appointment Laboratory Medicine Angélica Granger P.A.-C. [address] [place] [phone] 07/17/2022 Appointment Laboratory Medicine Angélica Granger P.A.-C. [address] [place] [phone] 07/31/2022 Appointment Laboratory Medicine Angélica Granger P.A.-C. [address] [place] [phone] 08/14/2022 Appointment Laboratory Medicine Angélica Granger P.A.-C. [address] [place] [phone] 08/28/2022 Appointment Laboratory Medicine Angélica Granger P.A.-C. [address] [place] [phone] documented as of this encounter Visit Diagnoses Diagnosis Transplant Liver (HCC) - Primary Medication Therapy Assisted Not Anticoa gulant COVID-19 Infection documented in this encounter Additional Health Concerns Infection Onset Date Last Indicated Resolved Time COVID19 10/30/2020 10/30/2020 11/19/2020 4:45 AM CDT Assessment Noted Time PHQ-9 Depression Total Score: 3 11/22/2019 7:34 AM CDT documented as of this encounter Care Teams Operations Inspector Relationship Specialty Start Date End Date Elsewhere, Pcp PCP - General Family Medicine 07/29/17 [facility] - Laboratory Medicine 04/12/[address] [address] documented as of this encounter
--- OUTSIDE RECORDS SUMMARY | 2022-05-17 18:46 | XMS_ITS | Encounter Summary ---
:1955 Author Organization [facility] Address [address] [place] [address] Care Team Providers Name Role Phone Elsewhere, Pcp Primary Care Provider Unavailable Reason for Visit Reason Onset Date Comments Outpatient COVID-19 Testing 10/19/2020 Encounter Details Date Type Department Care Team Description 10/19/2020 External Outreach Department of [facility] Mushtaq Salas Contact With And Medicine, Steven Stern D.O. 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 [address] [place] [phone] 05/29/2022 Office Visit Otorhinolaryngology Dex Matta APRN CDemetriusNFabrice., M.S.N. [address] [place] [phone] 05/29/2022 Office Visit Otorhinolaryngology Nadeem Maradiaga P.A.-C., M.S. [address] [place] [phone] 05/31/2022 Appointment Radiology Guilherme Matt MPAS, P.A.-C., M.S. [address] [place] [phone] 06/05/2022 Appointment Laboratory Medicine Angélica Granger P.A.-C. [address] [place] [phone] 06/19/2022 Appointment Laboratory Medicine Angélica Granger P.A.-C. [address] [place] [phone] 07/03/2022 Appointment Laboratory Medicine Angélica Granger P.A.-C. [address] [place] [phone] 07/17/2022 Appointment Laboratory Medicine Angélica Granger P.A.-C. [address] [place] [phone] 07/31/2022 Appointment Laboratory Medicine Angélica Granger P.A.-C. [address] [place] [phone] 08/14/2022 Appointment Laboratory Medicine Angélica Granger P.A.-C. [address] [place] [phone] 08/28/2022 Appointment Laboratory Medicine Angélica Granger P.A.-C. [address] [place] [phone] documented as of this encounter Visit Diagnoses [...] documented as of this encounter Care Teams Periodicals Clerk Relationship Specialty Start Date End Date Elsewhere, Pcp PCP - General Family Medicine 07/29/17 [facility] - Laboratory Medicine 04/12/20 [place] [phone] documented as of this encounter
--- OUTSIDE RECORDS SUMMARY | 2022-05-17 18:46 | XMS_ITS | Encounter Summary ---
:1955 Author Organization [facility] Address [address] [place] [address] Care Team Providers Name Role Phone Elsewhere, Pcp Primary Care Provider Unavailable Reason for Visit Reason Comments COVID Inquiry Encounter Details Date Type Department Care Team Description 11/01/2020 Clinical Communication Division of [facility] COVID Inquiry Internal Medicine in [place], [place] [address] [place] [address] [address] [place] [address] [phone] Social History Tobacco Use Types Packs/Day Years [...] Date Recorded 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 If urgent, the coordinating care team should contact us to discuss expedited return to campus procedures. 11-01-2020 documented in this encounter Plan of Treatment Upcoming Encounters Date Type Specialty Care Team Description 05/22/2022 Appointment Laboratory Medicine Angélica Granger P.A.-C. [address] [place] [phone] 05/23/2022 Clinical Admitting/Central Communication Scheduling 05/27/2022 Comprehensive Visit Orthopedic Surgery Markus Sams M.D., Ph.D. [address] [place] [phone] 05/29/2022 Office Visit Otorhinolaryngology Dex Matta APRN, C.N.P., M.S.N. [address] [place] [address] [phone] 05/29/2022 Office Visit Otorhinolaryngology Nadeem Maradiaga P.A.-C., M.S. [address] [place] [phone] 05/31/2022 Appointment Radiology Guilherme Matt MPAS, P.A.-C., M.S. [address] [place] [phone] 06/05/2022 Appointment Laboratory Medicine Angélica Granger P.A.-C. [address] [place] [phone] 06/19/2022 Appointment Laboratory Medicine Angélica Granger P.A.-C. [address] [place] [phone] 07/03/2022 Appointment Laboratory Medicine Angélica Granger P.A.-C. [address] [place] [phone] 07/17/2022 Appointment Laboratory Medicine Angélica Granger P.A.-C. [address] [place] [phone] 07/31/2022 Appointment Laboratory Medicine Angélica Granger P.A.-C. [address] [place] [phone] 08/14/2022 Appointment Laboratory Medicine Angélica Granger P.A.-C. [address] [place] [phone] 08/28/2022 Appointment Laboratory Medicine Angélica Granger P.A.-C. [address] [place] [phone] documented as of this encounter Visit Diagnoses Not on filedocumented in this encounter Additional Health Concerns Infection Onset Date Last Indicated Resolved Time COVID19 10/30/2020 10/30/2020 11/19/2020 4:45 AM CDT Assessment Noted Time PHQ-9 Depression Total Score: 3 11/22/2019 7:34 AM CDT documented as of this encounter Care Teams Chief Orthoptist Relationship Specialty Start Date End Date Elsewhere, Pcp PCP - General Family Medicine 07/29/17 [facility] - Laboratory Medicine 04/12/[address] [address] documented as of this encounter
--- OUTSIDE RECORDS SUMMARY | 2022-05-17 18:46 | XMS_ITS | Encounter Summary ---
:1955 Author Organization [facility] Address [address] [place] [address] Care Team Providers Name Role Phone Elsewhere, Pcp Primary Care Provider Unavailable Reason for Visit Outpatient (Routine) - Closed Specialty Diagnoses / Procedures Referred By Contact Refer red To Contact Diagnoses Transplant Liver (HCC) Medication Therapy Long-Term Not Anticoagulant COVID-19 Infection Trung Plasencia P.A.-C., [facility] Procedures COVID - General eConsult (Adults Only) Clinical Evaluation; Enroll in COVID Care Program M.S. [address] [place] [address] [phone] Referral ID Status Reason Start Date Expiration Date Visits Requ ested Visits Authorized [id number] Closed 10/31/2020 10/31/2021 1 1 Encounter Details Date Type Department Care Team Description 11/01/2020 Internal E-Consult Division of General Evan Plasencia P.A.-C., M.S. [address] [place] [phone] Transplant Liver (HCC); Internal Medicine in Lilian Maddox M.D. 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 Independent review by the U.S. Food and Drug Administration is pending. Visit the CDC website: https://www.cdc.gov/coronavirus/ for the most recent guidelines on Coronavirus testing. Fact Sheet for Healthcare Providers: (https://www.Phosphagenics/it-mmfiles/ Provider_Fact_Sheet_for_[place]_COVID-19.pdf) Fact Sheet for Patients: (https://www.Phosphagenics/it-mmfiles/ Patient_Fact_Sheet_for_COVID-19.pdf) SARS CoV-2 RNA, TMA Date Value [...] was performed using the Aptima SARS-CoV-2 assay ([employer] on the Estero System under emergency use authorization (EUA) by the U.S. Food and Drug Administration. Fact sheets for this EUA assay can be found at the following links: For Healthcare Providers: https://www.[employer].gov/media/990053/download For Patients: https://www.fda.gov/media/292282/download 06/02/2020 Undetected Undetected Final Comment: SARS-CoV-2 RNA absent. This result does not rule out COVID-19 in the patient, as the sensitivity of the test depends on the timing of the specimen collection and the quality of the specimen. Result should be correlated with patient's history and clinical presentation. ----ADDITIONAL INFORMATION---- This test is performed using the Aptima SARS-CoV-2 assay ([employer].), which has received Emergency Use Authorization (EUA) by the U.S. Food and Drug Administration. Fact sheets for this Emergency Use Authorization (EUA) assay can be found at the following links: For Healthcare Providers: https://www.[employer].gov/media/367787/download For Patients: https://www.[employer].gov/media/504213/download 04/13/2020 Undetected Undetected Final Comment: SARS-CoV-2 RNA absent. This result does not rule out COVID-19 in the patient, as the sensitivity of the test depends on the timing of the specimen collection and the quality of the specimen. Result should be correlated with patient's history and clinical presentation. ----ADDITIONAL INFORMATION---- This test is performed using the Aptima SARS-CoV-2 assay ([employer].), which has received Emergency Use Authorization (EUA) by the U.S. Food and Drug Administration. Fact sheets for this Emergency Use Authorization (EUA) assay can be found at the following links: For Healthcare Providers: https://www.[employer].gov/media/870092/download For Patients: https://www.[employer].gov/media/317674/download SARS-CoV-2 IgG Ab Date Value Ref Range Status 12/13/2019 Negative Negative Final Comment: No IgG antibodies to SARS-CoV-2 detected. Negative results may occur in serum collected too soon following infection, or in immunosuppressed patients. Follow-up testing with a molecular test is recommended in symptomatic patients. This test should not be used to exclude active/recent COVID-19. Testing was performed using the EUROIMMUN Rgwr-GYFE-LoM-2 HARRIET (IgG), which has received Emergency Use Authorization (EUA) by the U.S. Food and Drug Administration. Fact sheets for this EUA assay can be found at the following links: Factsheet for healthcare Providers: https://www.fda.gov/media/555549/download Factsheet for healthcare Patients: https://www.fda.gov/media/164454/download ASSESSMENT / PLAN #1 Transplant Liver (HCC) #2 Medication Therapy Trial Manager Not Anticoagulant #3 COVID-19 Infection Follow up with CF[facility] will be established. Patient was referred for Complex Care remote monitoring through the [facility]. Beginning of isolation is October 30, 2020. Isolation duration: at least 20 days from the date of the positive PCR. If any symptoms develop, they should contact their healthcare providers. Follow up contact: the [facility] remote monitoring team at [phone] On campus appointments: You do have upcoming on-campus appointments. We recommend delaying non-urgent appointments until you have recovered from your COVID infection. Our team will reach out to the area you are scheduled to be seen in. Please do not come to campus until given the ok to do so by a [place] career services representative. documented in this encounter Plan of Treatment Upcoming Encounters Date Type Specialty Care Team Description 05/22/2022 Appointment Laboratory Medicine Angélica Granger P.A.-C. [address] [place] [phone] 05/23/2022 Clinical Admitting/Central Communication Scheduling 05/27/2022 Comprehensive Visit Orthopedic Surgery Markus Sams M.D., Ph.D. 200 [place] [phone] 05/29/2022 Office Visit Otorhinolaryngology Dex Matta APRN, C.N.P., M.S.N. [address] [place] [phone] 05/29/2022 Office Visit Otorhinolaryngology Nadeem Maradiaga P.A.-C., M.S. [address] [place] [phone] 05/31/2022 Appointment Radiology Guilherme Matt MPAS, P.A.-C., M.S. [address] [place] [phone] 06/05/2022 Appointment Laboratory Medicine Angélica Granger P.A.-C. [address] [place] [phone] 06/19/2022 Appointment Laboratory Medicine Angélica Granger P.A.-C. [address] [place] [phone] 07/03/2022 Appointment Laboratory Medicine Angélica Granger P.A.-C. [address] [place] [phone] 07/17/2022 Appointment Laboratory Medicine Angélica Granger P.A.-C. [address] [place] [phone] 07/31/2022 Appointment Laboratory Medicine Angélica Granger P.A.-C. [address] [place] [phone] 08/14/2022 Appointment Laboratory Medicine Angélica Granger P.A.-C. [address] [place] [phone] 08/28/2022 Appointment Laboratory Medicine Angélica Granger P.A.-C. [address] [place] [phone] documented as of this encounter Visit Diagnoses Diagnosis Transplant Liver (HCC) Medication Therapy Trial Manager Not Anticoa gulant COVID-19 Infection documented in this encounter Additional Health Concerns Infection Onset Date Last Indicated Resolved Time COVID19 10/30/2020 10/30/2020 11/19/2020 4:45 AM CDT Assessment Noted Time PHQ-9 Depression Total Score: 3 11/22/2019 7:34 AM CDT documented as of this encounter Care Teams Computer Operations Analyst Relationship Specialty Start Date End Date Elsewhere, Pcp PCP - General Family Medicine 07/29/17 [facility] - Laboratory Medicine 04/12/20 [place] [phone] documented as of this encounter
--- OUTSIDE RECORDS SUMMARY | 2022-05-17 18:46 | XMS_ITS | Encounter Summary ---
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 200 [place] [phone] Referral ID Status Reason Start Date Expiration Date Visits Requ ested Visits Authorized [id number] Closed 10/13/2020 10/13/2021 99 99 Outpatient (Routine) - Closed Specialty Diagnoses / Procedures Referred By Contact Refer red To Contact Diagnoses Cough Unspecified Type Pneumonitis Due To Inhalation Of Food And Vomit (HCC) Connie Aaron [facility] Procedures FL Swallow Function with Video and Speech or OT M.B.B.S. 200 [place] [phone] Referral ID Status Reason Start Date Expiration Date Visits Requ ested Visits Authorized [id number] Closed 10/13/2020 10/13/2021 1 1 Speech Pathology (Routine) - Closed Specialty Diagnoses / Procedures Referred By Contact Refer red To Contact Diagnoses Cough Unspecified Type Pneumonitis Due To Inhalation Of Food And Vomit (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 [address] [place], [place] [phone] Referral ID Status Reason Start Date Expiration Date Visits Requ ested Visits Authorized [id number] Closed 10/13/2020 10/13/2021 99 99 Outpatient (Routine) - Closed Specialty Diagnoses / Procedures Referred By Contact Refer red To Contact Diagnoses Cough Unspecified Type Connie Aaron [facility] Procedures Esophageal pH Testing Impedance Removal M.B.B.S. [address] [place], [place] [phone] Referral ID Status Reason Start Date Expiration Date Visits Requ ested Visits Authorized [id number] Closed 10/13/2020 10/13/2021 1 1 Outpatient (Routine) - Closed Specialty Diagnoses / Procedures Referred By Contact Refer red To Contact Diagnoses Cough Unspecified Type Connie Aaron [facility] Procedures Esophageal pH Testing M.B.B.S. [address] [place] [phone] Referral ID Status Reason Start Date Expiration Date Visits Requ ested Visits Authorized [id number] Closed 10/13/2020 10/13/2021 1 1 Outpatient (Routine) - Closed Specialty Diagnoses / Procedures Referred By Contact Refer red To Contact Diagnoses Cough Unspecified Type Connie Aaron [place] Procedures Esophageal Manometry M.B.B.S. 200 [place] [phone] Referral ID Status Reason Start Date Expiration Date Visits Requ ested Visits Authorized [id number] Closed 10/13/2020 10/13/2021 1 1 Encounter Details Date Type Department Care Team Description 10/13/2020 Orders Only RST [facility] Connie Aaron Cough (Primary Dx); 200 [facility] Simba HernandezBDemetriusS. Pneumonitis Due To Inhalation Of Food An d Vomit (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 [address] [place] [phone] 05/23/2022 Clinical Admitting/Central Communication Scheduling 05/27/2022 Comprehensive Visit Orthopedic Surgery Markus Sams M.D., Ph.D. [address] [place] [phone] 05/29/2022 Office Visit Otorhinolaryngology Dex Matta APRN, C.N.P., M.S.N. [address] [place] [address] [phone] 05/29/2022 Office Visit Otorhinolaryngology Nadeem Maradiaga, P.A.-Arley., M.S. [address] [place] [phone] 05/31/2022 Appointment Radiology Guilherme Matt MPAS, PMaryanne., M.S. [address] [place] [phone] 06/05/2022 Appointment Laboratory Medicine Angélica Granger P.A.-C. [address] [place] [phone] 06/19/2022 Appointment Laboratory Medicine Angélica Granger P.A.-C. [address] [place] [phone] 07/03/2022 Appointment Laboratory Medicine Angélica Granger P.A.-C. [address] [place] [phone] 07/17/2022 Appointment Laboratory Medicine Angélica Granger P.A.-C. [address] [place] [phone] 07/31/2022 Appointment Laboratory Medicine Angélica Granger P.A.-C. [address] [place] [phone] 08/14/2022 Appointment Laboratory Medicine Angélica Granger P.A.-C. [address] [place] [phone] 08/28/2022 Appointment Laboratory Medicine Angélica Granger P.A.-C. [address] [place] [phone] Scheduled Orders Name Type Priority Associated Diagnoses [...] pH Testing (11/22/2020 1:30 PM CDT) Narrative [employer] - 11/22/2020 1:30 PM CDT Santana Montiel M.D. ? 11/22/2020 ??3:13 PM Patient: Bruce Singh ?? [phone] Gender: Male Physician: Louie Montiel [phone] Age: ??Referred by: Zuleyka Aaron [phone] : 1955 Reproduction Technician: Mulugeta rivero RN Height: 177.8cm Medication: Off [...] pack number: [id number]. Probe lot duy r: [id number]. Medications off for study, patient does not [...] RocaSDemetrius GI PROCEDURE ORDERABLES Performing Organization Address [facility] Phon e Number [employer] [...] sphincter function appeared normal. OVERALL IMPRESSION: #1 [place] Classification: ??Normal mano metry Todd Corey MD Connie RocaSDemetrius GI PROCEDURE ORDERABLES Performing Organization Address [facility] Phon e Number MMODAL MMODAL NA documented [...] documented as of this encounter Care Teams Welding Engineer Relationship Specialty Start Date End Date Elsewhere, Pcp PCP - General Family Medicine 07/29/17 [facility] - Laboratory Medicine 04/12/20 [place] [phone] documented as of this encounter
--- OUTSIDE RECORDS SUMMARY | 2022-05-17 18:46 | XMS_ITS | Encounter Summary ---
:1955 Author Organization [facility] Address [address] [place] [address] Care Team Providers Name Role Phone Elsewhere, Pcp Primary Care Provider Unavailable Reason for Visit Reason Comments Treatment Episode Based Medications (Routine) - Closed Specialty Diagnoses / Procedures Referred By Contact Refer red To Contact Diagnoses COVID-19 Infection Arturo Almeida [facility] Inf Surge Wolf Draper M.D., M.P.H. [address] [place] [address] [address] [place] [address] [phone] Referral ID Status Reason Start Date Expiration Date Visits Requ ested Visits Authorized [id number] Closed 10/31/2020 10/31/2021 99 99 Encounter Details Date Type Department Care Team Description 10/31/2020 Infusion Department of Infusion Juan Pablo COVID-19 Infection Therapy in Jimmie Draper M.D., (Primary Dx) [place], [place] M.P.H. 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 [address] [place] [phone] 05/23/2022 Clinical Admitting/Central Communication Scheduling 05/27/2022 Comprehensive Visit Orthopedic Surgery Markus Sams M.D., Ph.D. [address] [place] [phone] 05/29/2022 Office Visit Otorhinolaryngology Dex Matta APRN, C.NDemetriusP., M.S.N. [address] [place] [phone] 05/29/2022 Office Visit Otorhinolaryngology Nadeem Maradiaga, PMaryanne., M.S. [address] [place] [phone] 05/31/2022 Appointment Radiology Guilherme Matt MPAS, Edmundo, M.S. [address] [place] [phone] 06/05/2022 Appointment Laboratory Medicine Angélica Granger P.A.-C. [address] [place] [phone] 06/19/2022 Appointment Laboratory Medicine Angélica Granger P.A.-C. [address] [place] [phone] 07/03/2022 Appointment Laboratory Medicine Angélica Granger P.A.-C. [address] [place] [phone] 07/17/2022 Appointment Laboratory Medicine Angélica Granger P.A.-C. [address] [place] [phone] 07/31/2022 Appointment Laboratory Medicine Angélica Granger P.A.-C. [address] [place] [phone] 08/14/2022 Appointment Laboratory Medicine Angélica Granger P.A.-C. [address] [place] [phone] 08/28/2022 Appointment Laboratory Medicine Angélica Granger P.A.-C. [address] [place] [phone] documented as of this encounter Visit Diagnoses [...] dose, RN distributes fact sheet to patient/caregiver. https://www.Unight/sites/ default/files/treatment-covid19- mnf-iacl-vwofk-for-patient.pdf *Refrigerate* Do not shake. Allow the infusion solution to equilibrate to room temperature for approximately 30 minutes prior to administration. Nursing to attach and prime infusion set with in-line or add-on 0.2 micron polyethersulfone (PES) filter. Flush with NaCl 0.9% after infusion. , Authorizing Prescriber Service: SHERIDAN Front Line Care Team, Criteria: Patient age [...] documented as of this encounter Care Teams Open End Spinning Operator Relationship Specialty Start Date End Date Elsewhere, Pcp PCP - General Family Medicine 07/29/17 [facility] - Laboratory Medicine 04/12/[address] [phone] documented as of this encounter
--- OUTSIDE RECORDS SUMMARY | 2022-05-17 18:46 | XMS_ITS | Encounter Summary ---
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 [address] [place] [phone] 05/23/2022 Clinical Admitting/Central Communication Scheduling 05/27/2022 Comprehensive Visit Orthopedic Surgery Markus Sams M.D., Ph.D. [address] [place] [phone] 05/29/2022 Office Visit Otorhinolaryngology Dex Matta APRN, C.N.P., M.S.N. [address] [place] [phone] 05/29/2022 Office Visit Otorhinolaryngology Nadeem Maradiaga, P.A.-C., M.S. [address] [place] [phone] 05/31/2022 Appointment Radiology Guilherme Matt MPAS, P.Murtaza.-Arley., M.S. [address] [place] [phone] 06/05/2022 Appointment Laboratory Medicine Angélica Granger P.A.-C. [address] [place] [phone] 06/19/2022 Appointment Laboratory Medicine Angélica Granger P.A.-C. [address] [place] [phone] 07/03/2022 Appointment Laboratory Medicine Angélica Granger P.A.-C. [address] [place] [phone] 07/17/2022 Appointment Laboratory Medicine Angélica Granger P.A.-C. [address] [place] [phone] 07/31/2022 Appointment Laboratory Medicine Angélica Granger P.A.-C. [address] [place] [phone] 08/14/2022 Appointment Laboratory Medicine Angélica Granger P.A.-C. [address] [place] [phone] 08/28/2022 Appointment Laboratory Medicine Angélica Granger P.A.-C. [address] [place] [phone] documented as of this encounter Visit Diagnoses Not on filedocumented in this encounter Additional Health Concerns Infection Onset Date Last Indicated Resolved Time COVID19 Pending 10/19/2020 10/19/2020 10/19/2020 9:54 AM CDT COVID19 Pending 10/19/2020 10/19/2020 10/20/2020 11:57 AM CDT Assessment Noted Time PHQ-9 Depression Total Score: 3 11/22/2019 7:34 AM CDT documented as of this encounter Care Teams Bag Patcher Relationship Specialty Start Date End Date Elsewhere, Pcp PCP - General Family Medicine 07/29/17 [facility] - Laboratory Medicine 04/12/20 [place] [phone] documented as of this encounter
--- OUTSIDE RECORDS SUMMARY | 2022-05-17 18:46 | XMS_ITS | Encounter Summary ---
:1955 Author Organization [facility] Address [address] [place] [address] Care Team Providers Name Role Phone Elsewhere, Pcp Primary Care Provider Unavailable Reason for Visit Reason Comments External Lab Entry 10/13/2020 Encounter Details Date Type Department Care Team Description 10/13/2020 Clinical Curt Garces Transplant, Machining Department Supervisor al Lab Entry Communication Center for Coordinator, (10/13/2020) Transplantation and R.N. Clinical Regeneration in 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 [address] [place] [phone] 05/23/2022 Clinical Admitting/Central Communication Scheduling 05/27/2022 Comprehensive Visit Orthopedic Surgery Markus Sams M.D., Ph.D. [address] [place] [phone] 05/29/2022 Office Visit Otorhinolaryngology Dex Matta APRN, C.N.P., M.S.N. [address] [place] [phone] 05/29/2022 Office Visit Otorhinolaryngology Nadeem Maradiaga, P.A.-C., M.S. [address] [place] [phone] 05/31/2022 Appointment Radiology Guilherme Matt MPAS, P.Mutraza.-Arley., M.S. [address] [place] [phone] 06/05/2022 Appointment Laboratory Medicine Angélica Granger P.A.-C. [address] [place] [phone] 06/19/2022 Appointment Laboratory Medicine Angélica Granger P.A.-C. [address] [place] [phone] 07/03/2022 Appointment Laboratory Medicine Angélica Granger P.A.-C. [address] [place] [phone] 07/17/2022 Appointment Laboratory Medicine Angélica Granger P.A.-C. [address] [place] [phone] 07/31/2022 Appointment Laboratory Medicine Angélica Granger P.A.-C. [address] [place] [phone] 08/14/2022 Appointment Laboratory Medicine Angélica Granger P.A.-C. [address] [place] [phone] 08/28/2022 Appointment Laboratory Medicine Angélica Granger P.A.-C. [address] [place] [phone] documented as of this encounter Procedures Procedure [...] as of this encounter Care Teams Stock Preparer Relationship Specialty Start Date End Date Elsewhere, Pcp PCP - General Family Medicine 07/29/17 [facility] - Laboratory Medicine 04/12/20 [place] [phone] documented as of this encounter
--- OUTSIDE RECORDS SUMMARY | 2022-05-17 18:47 | XMS_ITS | Encounter Summary ---
:1955 Author Organization [facility] Address [address] [place] [address] Care Team Providers Name Role Phone Elsewhere, Pcp Primary Care Provider Unavailable Reason for Visit Reason Comments Phone Contact Encounter Details Date Type Department Care Team Description 10/06/2020 Clinical Communication Irena Gamez Phone Contact Center for R, R.N. 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 - 10/06/2020 3:16 PM CDT Faxed new lab order and sent out a hard copy for workers compensation legal secretary to mail. Telephone Encounter - Mayra Luevano - 10/06/2020 11:33 AM CDT Clinic has received the lab draw orders.[facility] has now stopped doing kit draws, at this time lab is asking that we fax a new order for drawing the tacrolimus level. Please fax to: [phone] No thacker on this he will be having labs drawn next Friday 10/13 Thank you documented in this encounter Plan of Treatment Upcoming Encounters Date Type Specialty Care Team Description 05/22/2022 Appointment Laboratory Medicine Angélica Granger P.A.-C. [address] [place] [phone] 05/23/2022 Clinical Admitting/Central Communication Scheduling 05/27/2022 Comprehensive Visit Orthopedic Surgery Markus Sams M.D., Ph.D. [address] [place] [phone] 05/29/2022 Office Visit Otorhinolaryngology Dex Matta APRN CDemetriusNFabrice., M.S.N. [address] [place] [phone] 05/29/2022 Office Visit Otorhinolaryngology Nadeem Maradiaga P.A.-C., M.S. [address] [place] [phone] 05/31/2022 Appointment Radiology Guilherme Matt MPAS, P.A.-C., M.S. [address] [place] [phone] 06/05/2022 Appointment Laboratory Medicine Angélica Granger P.A.-C. [address] [place] [phone] 06/19/2022 Appointment Laboratory Medicine Angélica Granger P.A.-C. [address] [place] [phone] 07/03/2022 Appointment Laboratory Medicine Angélica Granger P.A.-C. [address] [place] [phone] 07/17/2022 Appointment Laboratory Medicine Angélica Granger P.A.-C. [address] [place] [phone] 07/31/2022 Appointment Laboratory Medicine Angélica Granger P.A.-C. [address] [place] [phone] 08/14/2022 Appointment Laboratory Medicine Angélica Granger P.A.-C. [address] [place] [phone] 08/28/2022 Appointment Laboratory Medicine Angélica Granger P.A.-C. [address] [place] [phone] documented as of this encounter Visit Diagnoses Not on filedocumented in this encounter Additional Health Concerns Assessment Noted Time PHQ-9 Depression Total Score: 3 11/22/2019 7:34 AM CDT documented as of this encounter Care Teams Nursing Informatics Specialist Relationship Specialty Start Date End Date Elsewhere, Pcp PCP - General Family Medicine 07/29/17 [facility] - Laboratory Medicine 04/12/[address] [address] documented as of this encounter
--- OUTSIDE RECORDS SUMMARY | 2022-05-17 18:47 | XMS_ITS | Encounter Summary ---
:1955 Author Organization [facility] Address [address] [place] [address] Care Team Providers Name Role Phone Elsewhere, Pcp Primary Care Provider Unavailable Reason for Referral MRI/CAT/PET Scan (Routine) - Closed Specialty Diagnoses / Procedures Referred By Contact Refer red To Contact Radiology Diagnoses Pneumonia Shortness Of Breath Connie Aaron [facility] Procedures CT Chest without IV Contrast M.B.B.S. 200 [place] [address] Referral ID Status Reason Start Date Expiration Date Visits Requ ested Visits Authorized [id number] Closed 10/03/2020 10/03/2021 1 1 MRI/CAT/PET Scan (Routine) - Closed Specialty Diagnoses / Procedures Referred By Contact Refer red To Contact Radiology Diagnoses Shortness Of Breath Cough Unspecified Type Connie Aaron [facility] Procedures CT Sinuses without IV Contrast M.B.B.S. 200 [place], [place] [address] Referral ID Status Reason Start Date Expiration Date Visits Requ ested Visits Authorized [id number] Closed 10/03/2020 10/03/2021 1 1 Reason for Visit MRI/CAT/PET Scan (Routine) - Closed Specialty Diagnoses / Procedures Referred By Contact Refer red To Contact Radiology Diagnoses Pneumonia Shortness Of Breath Connie Aaron [facility] Procedures CT Chest without IV Contrast M.B.B.S. [address] [place] [phone] Referral ID Status Reason Start Date Expiration Date Visits Requ ested Visits Authorized [id number] Closed 10/03/2020 10/03/2021 1 1 Encounter Details Date Type Department Care Team Description 10/12/2020 Hospital Encounter Department of Connie Aaron tness Of Breath; Radiology, Kd Hernandez M.B.B.S. 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 tablet cholecalciferol Take 1 capsule by 0 03/05/2013 [...] (HCC), daily. Medication Therapy Shelter Not Anticoagulant sodium chloride USE 4 ML VIA 0 08/30/2020 021 (NEBUSAL) 3 % nebulizer NEBULIZER TWICE solution DAILY sulfamethoxazole-trimet Take 1 tablet by 7 tablet 0 202011/12/2020 hoprim (BACTRIM DS) mouth daily. 800-160 mg per tablet tacrolimus (PROGRAF) Take 2 capsules (1 360 capsule 3 202007/16/2021 0.5 mg mg total) by mouth 2 capsuleIndications: (two) times a day. Transplant Liver (HCC), Medication Therapy Maxillofacial Pathology Not Anticoagulant torsemide (DEMADEX) 10 Take 3 tablets (30 270 tablet 3 05/2202/22/2021 mg tablet mg total) by mouth daily. documented as of this encounter Plan of Treatment Upcoming Encounters Date Type Specialty Care Team Description 05/22/2022 Appointment Laboratory Medicine Angélica Granger P.A.-C. [address] [place] [phone] 05/23/2022 Clinical Admitting/Central Communication Scheduling 05/27/2022 Comprehensive Visit Orthopedic Surgery Markus Sams M.D., Ph.D. [address] [place] [phone] 05/29/2022 Office Visit Otorhinolaryngology Dex Matta, COLOR DEVELOPER, C.N.P., M.S.N. [address] [place] [phone] 05/29/2022 Office Visit Otorhinolaryngology Nadeem Maradiaga, P.Murtaza.-C., M.S. [address] [place] [phone] 05/31/2022 Appointment Radiology Guilherme Matt, RASTA, PEdgar.Marie., M.S. [address] [place] [phone] 06/05/2022 Appointment Laboratory Medicine Angélica Granger P.A.-C. [address] [place] [phone] 06/19/2022 Appointment Laboratory Medicine Angélica Granger P.A.-C. [address] [place] [phone] 07/03/2022 Appointment Laboratory Medicine Angélica Granger P.A.-C. [address] [place] [phone] 07/17/2022 Appointment Laboratory Medicine Angélica Granger P.A.-C. [address] [place] [phone] 07/31/2022 Appointment Laboratory Medicine Angélica Granger P.A.-C. [address] [place] [phone] 08/14/2022 Appointment Laboratory Medicine Angélica Granger P.A.-C. [address] [place] [phone] 08/28/2022 Appointment Laboratory Medicine Angélica Granger P.A.-C. [address] [place] [phone] documented as of this encounter Procedures Procedure [...] he body of the report. Connie Barron IMG CT PROCEDURES CT Sinuses without IV Contrast [...] as of this encounter Care Teams Drilling Machine Runner Relationship Specialty Start Date End Date Elsewhere, Pcp PCP - General Family Medicine 07/29/17 [facility] - Laboratory Medicine 04/12/20 [place] [phone] documented as of this encounter
--- OUTSIDE RECORDS SUMMARY | 2022-05-17 18:47 | XMS_ITS | Encounter Summary ---
:1955 Author Organization [facility] Address [address] [place] [address] Care Team Providers Name Role Phone Elsewhere, Pcp Primary Care Provider Unavailable Reason for Visit Reason Comments Med Refill Encounter Details Date Type Department Care Team Description 10/01[facility] Salvador Camejo, Med Refill Transplantation and Clinical M.D . 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 documented in this encounter Plan of Treatment Upcoming Encounters Date Type Specialty Care Team Description 05/22/2022 Appointment Laboratory Medicine Angélica Granger P.A.-C. [address] [place] [phone] 05/23/2022 Clinical Admitting/Central Communication Scheduling 05/27/2022 Comprehensive Visit Orthopedic Surgery Markus Sams M.D., Ph.D. [address] [place] [phone] 05/29/2022 Office Visit Otorhinolaryngology Dex Matta APRN, C.N.P., M.S.N. [address] [place] [phone] 05/29/2022 Office Visit Otorhinolaryngology Nadeem Maradiaga P.A.-Arley., M.S. [address] [place] [phone] 05/31/2022 Appointment Radiology Guilherme Matt MPAS, P.A.-C., M.S. [address] [place] [phone] 06/05/2022 Appointment Laboratory Medicine Angélica Granger P.A.-C. [address] [place] [phone] 06/19/2022 Appointment Laboratory Medicine Angélica Granger P.A.-C. [address] [place] [phone] 07/03/2022 Appointment Laboratory Medicine Angélica Granger P.A.-C. [address] [place] [phone] 07/17/2022 Appointment Laboratory Medicine Angélica Granger P.A.-C. [address] [place] [phone] 07/31/2022 Appointment Laboratory Medicine Angélica Granger P.A.-C. [address] [place] [phone] 08/14/2022 Appointment Laboratory Medicine Angélica Granger P.A.-C. [address] [place] [phone] 08/28/2022 Appointment Laboratory Medicine Angélica Granger P.A.-C. [address] [place] [phone] documented as of this encounter Visit Diagnoses Not on filedocumented in this encounter Additional Health Concerns Assessment Noted Time PHQ-9 Depression Total Score: 3 11/22/2019 7:34 AM CDT documented as of this encounter Care Teams Coating Technician Relationship Specialty Start Date End Date Elsewhere, Pcp PCP - General Family Medicine 07/29/17 [facility] - Laboratory Medicine 04/12/[address] [address] documented as of this encounter
--- OUTSIDE RECORDS SUMMARY | 2022-05-17 18:47 | XMS_ITS | Encounter Summary ---
:1955 Author Organization [facility] Address [address] [place] [address] Care Team Providers Name Role Phone Elsewhere, Pcp Primary Care Provider Unavailable Encounter Details Date Type Department Care Team Description 10/02/2020 Clinical Communication Department of Elian Chatman D[facility]at[facility] in [place], RAMONA, C.N.P., [place], [place] D.N.P. 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 [address] [place] [phone] 05/23/2022 Clinical Admitting/Central Communication Scheduling 05/27/2022 Comprehensive Visit Orthopedic Surgery Mrakus Sams M.D., Ph.D. [address] [place] [phone] 05/29/2022 Office Visit Otorhinolaryngology Dex Matta APRN, C.N.P., M.S.N. [address] [place] [phone] 05/29/2022 Office Visit Otorhinolaryngology Nadeem Maradiaga, P.Murtaza.-Arley., M.S. [address] [place] [phone] 05/31/2022 Appointment Radiology Guilherme Matt MPAS, Jennifer., M.S. [address] [place] [phone] 06/05/2022 Appointment Laboratory Medicine Angélica Granger P.A.-C. [address] [place] [phone] 06/19/2022 Appointment Laboratory Medicine Angélica Granger P.A.-C. [address] [place] [phone] 07/03/2022 Appointment Laboratory Medicine Angélica Gragner P.A.-C. [address] [place] [phone] 07/17/2022 Appointment Laboratory Medicine Angélica Granger P.A.-C. [address] [place] [phone] 07/31/2022 Appointment Laboratory Medicine Angélica Granger P.A.-C. [address] [place] [phone] 08/14/2022 Appointment Laboratory Medicine Angélica Granger P.A.-C. [address] [place] [phone] 08/28/2022 Appointment Laboratory Medicine Angélica Granger P.A.-C. [address] [place] [phone] documented as of this encounter Visit Diagnoses Not on filedocumented in this encounter Additional Health Concerns Assessment Noted Time PHQ-9 Depression Total Score: 3 11/22/2019 7:34 AM CDT documented as of this encounter Care Teams Wind Turbine Mechanical Engineer Relationship Specialty Start Date End Date Elsewhere, Pcp PCP - General Family Medicine 07/29/17 [facility] - Laboratory Medicine 04/12/[address] [address] documented as of this encounter
--- OUTSIDE RECORDS SUMMARY | 2022-05-17 18:47 | XMS_ITS | Encounter Summary ---
:1955 Author Organization [facility] Address [address] [place] [address] Care Team Providers Name Role Phone Elsewhere, Pcp Primary Care Provider Unavailable Encounter Details Date Type Department Care Team Description 10/06/2020 Orders Only Jessika Olivarez Liver (HCC) (Primary Dx); Center for C, R.N. 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 [address] [place] [phone] 05/23/2022 Clinical Admitting/Central Communication Scheduling 05/27/2022 Comprehensive Visit Orthopedic Surgery Markus Sams M.D., Ph.D. [address] [place] [phone] 05/29/2022 Office Visit Otorhinolaryngology eDx Matta, RAMONA, C.N.P., M.S.N. [address] [place] [phone] 05/29/2022 Office Visit Otorhinolaryngology Nadeem Maradiaga, P.Murtaza.-Arley., M.S. [address] [place] [address] [phone] 05/31/2022 Appointment Radiology Guilherme Matt MPAS, Jennifer., M.S. [address] [place] [phone] 06/05/2022 Appointment Laboratory Medicine Angélica Granger P.A.-C. [address] [place] [phone] 06/19/2022 Appointment Laboratory Medicine Angélica Granger P.A.-C. [address] [place] [phone] 07/03/2022 Appointment Laboratory Medicine Angélica Granger P.A.-C. [address] [place] [phone] 07/17/2022 Appointment Laboratory Medicine Angélica Granger P.A.-C. [address] [place] [phone] 07/31/2022 Appointment Laboratory Medicine Angléica Granger P.A.-C. [address] [place] [phone] 08/14/2022 Appointment Laboratory Medicine Angélica Granger P.A.-C. [address] [place] [phone] 08/28/2022 Appointment Laboratory Medicine Angélica Granger P.A.-C. [address] [place] [phone] documented as of this encounter Visit Diagnoses Diagnosis Transplant Liver (HCC) - Primary Medication Therapy Usp Not Anticoa gulant documented in this encounter Additional Health Concerns Assessment Noted Time PHQ-9 Depression Total Score: 3 11/22/2019 7:34 AM CDT documented as of this encounter Care Teams Peoplesoft Administrator Relationship Specialty Start Date End Date Elsewhere, Pcp PCP - General Family Medicine 07/29/17 [facility] - Laboratory Medicine 04/12/[address] [address] documented as of this encounter
--- OUTSIDE RECORDS SUMMARY | 2022-05-17 18:47 | XMS_ITS | Encounter Summary ---
:1955 Author Organization [facility] Address [address] [place] [address] Care Team Providers Name Role Phone Elsewhere, Pcp Primary Care Provider Unavailable Encounter Details Date Type Department Care Team Description 10/03/2020 Orders Only Jsesika Olivarez Liver (HCC) (Primary Dx); Center for C, R.N. 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 [address] [place] [phone] 05/23/2022 Clinical Admitting/Central Communication Scheduling 05/27/2022 Comprehensive Visit Orthopedic Surgery Markus Sams M.D., Ph.D. [address] [place] [phone] 05/29/2022 Office Visit Otorhinolaryngology Dex Matta, RAMONA, C.N.P., M.S.N. [address] [place] [phone] 05/29/2022 Office Visit Otorhinolaryngology Nadeem Maradiaga, P.Murtaza.-Arley., M.S. [address] [place] [phone] 05/31/2022 Appointment Radiology Guilherme Matt MPAS, Jennifer., M.S. [address] [place] [phone] 06/05/2022 Appointment Laboratory Medicine Angélica Granger P.A.-C. [address] [place] [phone] 06/19/2022 Appointment Laboratory Medicine Angélica Granger P.A.-C. [address] [place] [phone] 07/03/2022 Appointment Laboratory Medicine Angélica Granger P.A.-C. [address] [place] [phone] 07/17/2022 Appointment Laboratory Medicine Angélica Granger P.A.-C. [address] [place] [phone] 07/31/2022 Appointment Laboratory Medicine Angélica Granger P.A.-C. [address] [place] [phone] 08/14/2022 Appointment Laboratory Medicine Angélica Granger P.A.-C. [address] [place] [phone] 08/28/2022 Appointment Laboratory Medicine Angélica Granger P.A.-C. [address] [place] [phone] documented as of this encounter Visit Diagnoses Diagnosis Transplant Liver (HCC) - Primary Medication Therapy Intermediate Not Anticoa gulant documented in this encounter Additional Health Concerns Assessment Noted Time PHQ-9 Depression Total Score: 3 11/22/2019 7:34 AM CDT documented as of this encounter Care Teams Linseed Oil Boiler Relationship Specialty Start Date End Date Elsewhere, Pcp PCP - General Family Medicine 07/29/17 [facility] - Laboratory Medicine 04/12/[address] [address] documented as of this encounter
--- OUTSIDE RECORDS SUMMARY | 2022-05-17 18:47 | XMS_ITS | Encounter Summary ---
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 [address] [place] [phone] 05/23/2022 Clinical Admitting/Central Communication Scheduling 05/27/2022 Comprehensive Visit Orthopedic Surgery Markus Sams M.D., Ph.D. [address] [place] [phone] 05/29/2022 Office Visit Otorhinolaryngology Dex Matta APRN, C.N.P., M.S.N. [address] [place] [phone] 05/29/2022 Office Visit Otorhinolaryngology Nadeem Maradiaga, P.A.-Arley., M.S. [address] [place] [phone] 05/31/2022 Appointment Radiology Guilherme Matt, RASTA, P.Murtaza.Marie., M.S. [address] [place] [phone] 06/05/2022 Appointment Laboratory Medicine Angélica Granger P.A.-C. [address] [place] [phone] 06/19/2022 Appointment Laboratory Medicine Angélica Granger P.A.-C. [address] [place] [phone] 07/03/2022 Appointment Laboratory Medicine Angélica Granger P.A.-C. [address] [place] [phone] 07/17/2022 Appointment Laboratory Medicine Angélica Granger P.A.-C. [address] [place] [phone] 07/31/2022 Appointment Laboratory Medicine Angélica Granger P.A.-C. [address] [place] [phone] 08/14/2022 Appointment Laboratory Medicine Angélica Granger P.A.-C. [address] [place] [phone] 08/28/2022 Appointment Laboratory Medicine Angélica Granger P.A.-C. [address] [place] [phone] documented as of this encounter Procedures Procedure [...] Organization Address City/State/ZIP Code Phon e Number IIIA IIMS NA documented in this encounter Visit Diagnoses Not on filedocumented in this encounter Additional Health Concerns Assessment Noted Time PHQ-9 Depression Total Score: 3 11/22/2019 7:34 AM CDT documented as of this encounter Care Teams Inspector Final Assembly Mechanical Relationship Specialty Start Date End Date Elsewhere, Pcp PCP - General Family Medicine 07/29/17 [facility] - Laboratory Medicine 04/12/20 [place] [phone] documented as of this encounter
--- OUTSIDE RECORDS SUMMARY | 2022-05-17 18:47 | XMS_ITS | Encounter Summary ---
:1955 Author Organization [facility] Address [address] [place] [address] Care Team Providers Name Role Phone Elsewhere, Pcp Primary Care Provider Unavailable Reason for Referral Outpatient (Routine) - Closed Specialty Diagnoses / Procedures Referred By Contact Refer red To Contact Dermatology Diagnoses Squamous Cell Carcinoma In Situ [facility] Procedures [facility] 1-4 sites Arley GREENE.N.PDemetrius, D.N.P. [address] [place] [phone] Referral ID Status Reason Start Date Expiration Date Visits Requ ested Visits Authorized [id number] Closed 10/04/2020 10/04/2021 1 1 Encounter Details Date Type Department Care Team Description 10/04/2020 Orders Only Department of Kandace Chatman Squamous Cell Dermatology in RAMONA Hauser C.N.PDemetrius, Carcinoma In Situ [place], [place] D.N.P. (Primary Dx) [address] [place] [address] [address] [place] [phone] (Wo rk) Social History Tobacco Use Types [...] 12/15/2021 organizations such as quaker groups, unions, fraLiquid5 or athletic groups, or school groups? 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 [address] [place] [phone] 05/23/2022 Clinical Admitting/Central Communication Scheduling 05/27/2022 Comprehensive Visit Orthopedic Surgery Markus Sams M.D., Ph.D. [address] [place] [phone] 05/29/2022 Office Visit Otorhinolaryngology GoschDex APRN, C.N.P., M.S.N. [address] [place] [phone] 05/29/2022 Office Visit Otorhinolaryngology Nadeem Maradiaga P.A.-C., M.S. [address] [place] [phone] 05/31/2022 Appointment Radiology Guilherme Matt MPAS, P.A.-C., M.S. [address] [place] [phone] 06/05/2022 Appointment Laboratory Medicine Angélica Granger P.A.-C. [address] [place] [phone] 06/19/2022 Appointment Laboratory Medicine Angélica Granger P.A.-C. [address] [place] [phone] 07/03/2022 Appointment Laboratory Medicine Angélica Granger P.A.-C. [address] [place] [phone] 07/17/2022 Appointment Laboratory Medicine Angélica Granger P.A.-C. [address] [place] [phone] 07/31/2022 Appointment Laboratory Medicine Angélica Granger P.A.-C. [address] [place] [phone] 08/14/2022 Appointment Laboratory Medicine Angélica Granger P.A.-C. [address] [place] [phone] 08/28/2022 Appointment Laboratory Medicine Angélica Granger P.A.-C. [address] [place] [address] Scheduled Orders Name Type Priority Associated Diagnoses [...] as of this encounter Care Teams Record Maker Relationship Specialty Start Date End Date Elsewhere, Pcp PCP - General Family Medicine 07/29/17 [facility] - Laboratory Medicine 04/12/[address] [address] documented as of this encounter
--- OUTSIDE RECORDS SUMMARY | 2022-05-17 18:47 | XMS_ITS | Encounter Summary ---
:1955 Author Organization [facility] Address [address] [place] [address] Care Team Providers Name Role Phone Elsewhere, Pcp Primary Care Provider Unavailable Reason for Referral MRI/CAT/PET Scan (Routine) - Closed Specialty Diagnoses / Procedures Referred By Contact Refer red To Contact Radiology Diagnoses Pneumonia Shortness Of Breath Connie aAron [facility] Procedures CT Chest without IV Contrast M.B.B.S. 200 [place] [address] Referral ID Status Reason Start Date Expiration Date Visits Requ ested Visits Authorized [id number] Closed 10/03/2020 10/03/2021 1 1 MRI/CAT/PET Scan (Routine) - Closed Specialty Diagnoses / Procedures Referred By Contact Refer red To Contact Radiology Diagnoses Shortness Of Breath Cough Unspecified Type Connie Aaron [facility] Procedures CT Sinuses without IV Contrast M.B.B.S. 200 [place], [place] [phone] Referral ID Status Reason Start Date Expiration Date Visits Requ ested Visits Authorized [id number] Closed 10/03/2020 10/03/2021 1 1 Encounter Details Date Type Department Care Team Description 10/03/2020 Orders Only Division of Pulmonary Connie aAron (Primary Dx); Medicine in [place] M.B.B. S. 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 [address] [place] [phone] 05/23/2022 Clinical Admitting/Central Communication Scheduling 05/27/2022 Comprehensive Visit Orthopedic Surgery Markus Sams M.D., Ph.D. [address] [place] [phone] 05/29/2022 Office Visit Otorhinolaryngology Dex Matta APRN, C.N.P., M.S.N. [address] [place] [phone] 05/29/2022 Office Visit Otorhinolaryngology Nadeem Maradiaga, P.Murtaza.-Arley., M.S. [address] [place] [phone] 05/31/2022 Appointment Radiology Guilherme Matt, RASTA, PMaryanne., M.S. [address] [place] [address] [phone] 06/05/2022 Appointment Laboratory Medicine Angélica Granger P.A.-C. [address] [place] [phone] 06/19/2022 Appointment Laboratory Medicine Angélica Granger P.A.-C. [address] [place] [address] [phone] 07/03/2022 Appointment Laboratory Medicine Angélica Granger P.A.-C. [address] [place] [phone] 07/17/2022 Appointment Laboratory Medicine Angélica Granger P.A.-C. [address] [place] [phone] 07/31/2022 Appointment Laboratory Medicine Angélica Granger P.A.-C. [address] [place] [address] [phone] 08/14/2022 Appointment Laboratory Medicine Angélica Granger P.A.-C. [address] [place] [phone] 08/28/2022 Appointment Laboratory Medicine Angélica Granger P.A.-C. [address] [place] [phone] documented as of this encounter Results CT [...] PROCEDURES Mycobacterial Culture (10/12/2020 12:12 PM CDT) [facility] Method Time Signature Mycobacterial No growth 11/23/2020 [...] City/State/ZIP Code Phon e Number [facility] - [address] [place], [place] [address] [facility] [place] [place] [address] Laboratories-[facility] [address] Acid Fast [...] - GENERAL ORDERABLES Performing Organization Address City/[facility]/ZIP Code Phon e Number [facility] - [address] [place], [place] [address] [place] [address] [address] [facility] (ABNORMAL) Fungal Culture, Routine (10/12/2020 12:12 PM [...] CDT Comment: Specimen Source Site: Sputum Connie CottrellBDemetriusSDemetrius LAB MICROBIOLOGY - GENERAL ORDERABLES Performing Organization Address City/State/ZIP Code Phon e Number [facility] - [address] [place], [place] [address] [facility] [place] [place] [address] Formerly [facility] [address] Fungal Smear (10/12/2020 12:12 PM CDT) P [...] City/State/ZIP Code Phon e Number [facility] - [facility][note 3] [address] [place], [place] [address] [facility] [place] [address] Laboratories-[facility] [address] (ABNORMAL) Bacterial Culture, Aerobic + Susc, Resp (10/12/2020 12:12 PM CDT) [facility] gist Method Time Signature Bacterial With [...] DAVID (MCG/M L) <=4 mcg/mL: Susceptible Connie CottrellB.S. LAB MICROBIOLOGY - GENERAL ORDERABLES Performing Organization Address [facility] Phon e Number [facility] - [address] Gram Stain (10/12/2020 12:12 PM CDT) [facility] gist Method Time Signature Gram Stain Mixed efrem. 10/12/2020 [facility] White blood cells, Moderate. 3:06 PM CDT Epithelial cells, Few. Specimen Anatomical Collection Method Collection Time Receive d Time (Source) Location / / Volume Laterality Sputum (Sputum) 10/12/2020 12:12 10/13/19 21 PM CDT 12:55 PM CDT Comment: Specimen Source Site: Sputum Connie CottrellB.S. LAB MICROBIOLOGY - GENERAL ORDERABLES Performing Organization Address [facility] Phon e Number [facility] - [address] [place] [address] documented in this encounter Visit Diagnoses Diagnosis Pneumonia - Primary Shortness Of Breath Cough Unspecified Type Shortness Of Breath Cough Unspecified Type Pneumonia documented in this encounter Additional Health Concerns Assessment Noted Time PHQ-9 Depression Total Score: 3 11/22/2019 7:34 AM CDT documented as of this encounter Care Teams Research Biostatistician Relationship Specialty Start Date End Date Elsewhere, Pcp PCP - General Family Medicine 07/29/17 [facility] - Laboratory Medicine 04/12/20 [place] [address] documented as of this encounter
--- OUTSIDE RECORDS SUMMARY | 2022-05-17 18:47 | XMS_ITS | Encounter Summary ---
:[address] [facility] Address [address] [place] [address] Care Team Providers Name Role Phone Elsewhere, Pcp Primary Care Provider Unavailable Reason for Visit Reason Comments Phone Contact Encounter Details Date Type Department Care Team Description 10/03/2020 Clinical Communication Irena Gamez Phone Contact Center for R, R.N. 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 - 10/06/2020 10:45 AM CDT Re-faxed to Clinic 10/06/20 at 10:46. Placed copy in mailbox for construction secretary to send out. Telephone Encounter - Mayra Luevano - 10/06/2020 9:27 AM CDT Please re-fax standing lab orders to [phone] [facility]. Patient stated that the clinic still has [...] CDT Please fax standing lab orders to [phone] [facility]. Patient requests they say every 3 months and as directed. Portal message once complete please Thanks Nayely documented in this encounter Plan of Treatment Upcoming Encounters Date Type Specialty Care Team Description 05/22/2022 Appointment Laboratory Medicine Angélica Granger P.A.-C. [address] [place] [phone] 05/23/2022 Clinical Admitting/Central Communication Scheduling 05/27/2022 Comprehensive Visit Orthopedic Surgery Markus Sams M.D., Ph.D. [address] [place] [phone] 05/29/2022 Office Visit Otorhinolaryngology Dex Matta APRN, C.N.P., M.S.N. [address] [place] [phone] 05/29/2022 Office Visit Otorhinolaryngology Nadeem Maradiaga, P.Murtaza.-C., M.S. [address] [place] [phone] 05/31/2022 Appointment Radiology Guilherme Matt MPAS, P.Murtaza.-Arley., M.S. [address] [place] [phone] 06/05/2022 Appointment Laboratory Medicine Angélica Granger P.A.-C. [address] [place] [phone] 06/19/2022 Appointment Laboratory Medicine Angélica Granger P.A.-C. [address] [place] [phone] 07/03/2022 Appointment Laboratory Medicine Angélica Granger P.A.-C. [address] [place] [phone] 07/17/2022 Appointment Laboratory Medicine Angélica Granger P.A.-C. [address] [place] [phone] 07/31/2022 Appointment Laboratory Medicine Angélica Granger P.A.-C. [address] [place] [phone] 08/14/2022 Appointment Laboratory Medicine Angélica Granger P.A.-C. [address] [place] [address] [phone] 08/28/2022 Appointment Laboratory Medicine Angélica Granger P.A.-C. [address] [place] [address] [phone] documented as of this encounter Visit Diagnoses Not on filedocumented in this encounter Additional Health Concerns Assessment Noted Time PHQ-9 Depression Total Score: 3 11/22/2019 7:34 AM CDT documented as of this encounter Care Teams Mine Analyst Relationship Specialty Start Date End Date Elsewhere, Pcp PCP - General Family Medicine 07/29/17 [facility] - Laboratory Medicine 04/12/[address] [address] documented as of this encounter
--- OUTSIDE RECORDS SUMMARY | 2022-05-17 18:47 | XMS_ITS | Encounter Summary ---
:1955 Author Organization [facility] Address [address] [place] [address] Care Team Providers Name Role Phone Elsewhere, Pcp Primary Care Provider Unavailable Reason for Visit Appointment Request (Routine) - Closed Specialty Diagnoses / Procedures Referred By Contact Refer red To Contact Dermatology Diagnoses Lesion Skin Ear Referral ID Status Reason Start Date Expiration Date Visits Requ ested Visits Authorized [id number] Closed 10/02/2020 10/02/2021 1 1 Encounter Details Date Type Department Care Team Description 10/02/2020 Office Visit Department of Kandace Chatman Tumor Sk in Uncertain Behavior (Primary Dx); Dermatology in A, RAMONA, C.N.P., Milo [place], [place] D.N.P. 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 - 10/02/2020 2:20 PM CDT CHIEF COMPLAINT / REASON FOR VISIT Skin lesion on ear Fungus on feet Supervised by: Dr. Alena Berry ([phone]) Supervising apprenticeship consultant, Dr. Alena Berry, was immediately available [...] Results communicated in a letter on the [facility] portal. CONSENT Discussed the risks, benefits, alternatives, [...] to thepatient by letter. Patient given pamphlet [id number]. #2 Likely Tinea Pedis #3 Probable Onychomycosis [...] thecontent. Scribed for Kandace Chatman APRN, C.N.P., Bashir.N.PDemetrius by Aicha Limon on 10/02/2020, 2:17 PM CDT. I personally performed the services described in this documentation, as scribed in my presence, and it is both accurate and complete. documented in this encounter Plan of Treatment Upcoming Encounters Date Type Specialty Care Team Description 05/22/2022 Appointment Laboratory Medicine Angélica Granger P.A.-C. [address] [place] [phone] 05/23/2022 Clinical Admitting/Central Communication Scheduling 05/27/2022 Comprehensive Visit Orthopedic Surgery Markus Sams M.D., Ph.D. [address] [place] [phone] 05/29/2022 Office Visit Otorhinolaryngology Dex Matta APRN C.NFabrice., M.S.N. [address] [place] [phone] 05/29/2022 Office Visit Otorhinolaryngology Nadeem Maradiaga P.A.Marie., M.S. [address] [place] [phone] 05/31/2022 Appointment Radiology Guilherme Matt MPAS, P.A.-C., M.SDemetrius [address] [place] [phone] 06/05/2022 Appointment Laboratory Medicine Angélica Granger P.A.-C. [address] [place] [phone] 06/19/2022 Appointment Laboratory Medicine Angélica Granger P.A.-C. [address] [place] [phone] 07/03/2022 Appointment Laboratory Medicine Angélica Granger P.A.-C. [address] [place] [phone] 07/17/2022 Appointment Laboratory Medicine Angélica Granger P.A.-C. [address] [place] [phone] 07/31/2022 Appointment Laboratory Medicine Angélica Granger P.A.-C. [address] [place] [phone] 08/14/2022 Appointment Laboratory Medicine Angélica Granger P.A.-C. [address] [place] [phone] 08/28/2022 Appointment Laboratory Medicine Angélica Granger P.A.-C. [address] [place] [phone] documented as of this encounter Procedures Procedure Name Priority Date/Time Associated Diagnosis Comme nts DERMATOPATHOLOGY Routine 10/02/2020 2:08 PM Tumor Skin Uncerta in Results for this CDT Behavior procedure are i n the results section. documented in this encounter Results Dermatopathology (10/02/2020 2:08 PM CDT) Component Value Ref Test Analysis Performed At [facility] gist Range Method Time Signature 10/04/2020 [facility] 2:19 PM CDT Report Nancy Aquino 10/04/2020 [facility] electronically Sada Lawrence 2:19 PM CDT signed by Gross Description Received in formalin labeled with the patient's n gonzalez, 10/04/2020 [facility] medical record number, and right conchal bowl [...] City/State/ZIP Code Phon e Number [facility] - [address] [place], [place] [address] [place] [address] Laboratories-[facility] [address] documented in this encounter Visit Diagnoses Diagnosis Tumor Skin Uncertain Behavior - Primary Tinea Pedis documented in this encounter Additional Health Concerns Assessment Noted Time PHQ-9 Depression Total Score: 3 11/22/2019 7:34 AM CDT documented as of this encounter Care Teams Seo Expert Relationship Specialty Start Date End Date Elsewhere, Pcp PCP - General Family Medicine 07/29/17 [facility] - Laboratory Medicine 04/12/20 [place] [address] documented as of this encounter
--- OUTSIDE RECORDS SUMMARY | 2022-05-17 18:47 | XMS_ITS | Encounter Summary ---
:1955 Author Organization [facility] Address [address] [place] [address] Care Team Providers Name Role Phone Elsewhere, Pcp Primary Care Provider Unavailable Encounter Details Date Type Department Care Team Description 10/04/2020 Orders Only Department of Kandace Chatman Contact With And (Suspected) Exposure To COVID-19 (Primary Dx); Dermatology in A, DEPUTY CHIEF COUNSEL, C.N.P., Encounter For Preprocedural Laboratory Examination (COVID-19) [place], [place] D.N.P. 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 [address] [place] [phone] 05/23/2022 Clinical Admitting/Central Communication Scheduling 05/27/2022 Comprehensive Visit Orthopedic Surgery Markus Sams M.D., Ph.D. [address] [place] [phone] 05/29/2022 Office Visit Otorhinolaryngology Dex Matta APRN, C.N.P., M.S.N. [address] [place] [phone] 05/29/2022 Office Visit Otorhinolaryngology Nadeem Maradiaga, P.Murtaza.-Arley., M.S. [address] [place] [address] [phone] 05/31/2022 Appointment Radiology Guilherme Matt, RASTA, PEdgar.Marie., M.S. [address] [place] [phone] 06/05/2022 Appointment Laboratory Medicine Angélica Granger P.A.-C. [address] [place] [phone] 06/19/2022 Appointment Laboratory Medicine Angélica Granger P.A.-C. [address] [place] [phone] 07/03/2022 Appointment Laboratory Medicine Angélica Granger P.A.-C. [address] [place] [phone] 07/17/2022 Appointment Laboratory Medicine Angélica Granger P.A.-C. [address] [place] [phone] 07/31/2022 Appointment Laboratory Medicine Angélica Granger P.A.-C. [address] [place] [phone] 08/14/2022 Appointment Laboratory Medicine Angélica Granger P.A.-C. [address] [place] [address] [phone] 08/28/2022 Appointment Laboratory Medicine Angélica Granger P.A.-C. [address] [place] [address] [phone] documented as of this encounter Results (ABNORMAL) SARS CoV-2 RNA, PCR, Varies Asymptomatic (10/30/2020 11:15 AM CDT) [facility] Method Time Signature SARS CoV-2 Swab, 10/30/2020 [facility] RNA, PCR, Nasopharynx 3:09 PM CDT Source SARS CoV-2 Detected (A) Undetected 10/30/2020 [facility] RNA, PCR 3:09 PM CDT Comment: SARS-CoV-2 RNA present. ----ADDITIONAL INFORMATION---- This RT-PCR test has received Emergency Use Authorization (EUA) by the U.S. Food and Drug Administration an d is used per yarn finisher's instructions. Performance characteristics were verified by [facility] in a manner consistent with CLIA requirements. Visit the CDC website: https://www.cdc.g ov/coronavirus/ for the most recent guidelines on Coron avirus testing. Fact Sheet for Healthcare Providers: https://www.fda.gov/media/747731/downloa d Fact Sheet for Patients: https://www.fda.gov/media/419245/downloa d Specimen Anatomical Collection Method Collection Time Receive d Time (Source) Location / / Volume Laterality Varies 10/30/2020 11:15 10/30/2020 (Nasopharynx) AM CDT 11:48 AM CDT Kandace Chatman APRN, C.N.P., D.N.P. LAB MICROBIOL OGY - GENERAL ORDERABLES Performing Organization Address City/State/ZIP Code Phon e Number [facility] - [facility] [address] [place] [address] Laboratories-[address] documented in this encounter Visit Diagnoses Diagnosis Contact With And (Suspected) Exposure To COVID-19 - Primary Encounter For Preprocedural Laboratory E xamination (COVID-19) documented in this encounter Additional Health Concerns Assessment Noted Time PHQ-9 Depression Total Score: 3 11/22/2019 7:34 AM CDT documented as of this encounter Care Teams Remelt Sugar Boiler Relationship Specialty Start Date End Date Elsewhere, Pcp PCP - General Family Medicine 07/29/17 [facility] - Laboratory Medicine 04/12/20 [place] [address] documented as of this encounter
--- OUTSIDE RECORDS SUMMARY | 2022-05-17 18:47 | XMS_ITS | Encounter Summary ---
:1955 Author Organization [facility] Address [address] [place] [address] Care Team Providers Name Role Phone Elsewhere, Pcp Primary Care Provider Unavailable Encounter Details Date Type Department Care Team Description 10/12/2020 Hospital Encounter Department of Connie Aaron P [place] Laboratory Medicine and M.B.B.S. 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 Medication Therapy Can Runner Not Anticoagulant sodium chloride USE 4 ML [...] a day. Transplant Liver (HCC), Medication Therapy Can Runner Not Anticoagulant torsemide (DEMADEX) 10 Take 3 tablets (30 270 tablet 3 05/2202/22/2021 mg tablet mg total) by mouth daily. documented as of this encounter Plan of Treatment Upcoming Encounters Date Type Specialty Care Team Description 05/22/2022 Appointment Laboratory Medicine Angélica Granger P.A.-C. [address] [place] [phone] 05/23/2022 Clinical Admitting/Central Communication Scheduling 05/27/2022 Comprehensive Visit Orthopedic Surgery Markus Sams M.D., Ph.D. [address] [place] [phone] 05/29/2022 Office Visit Otorhinolaryngology Dex Matta APRN, C.N.P., M.S.N. [address] [place] [phone] 05/29/2022 Office Visit Otorhinolaryngology Nadeem Maradiaga P.A.-Arley., M.S. [address] [place] [phone] 05/31/2022 Appointment Radiology Guilherme Matt MPAS, Jennifer., M.S. [address] [place] [phone] 06/05/2022 Appointment Laboratory Medicine Angélica Granger P.A.-C. [address] [place] [phone] 06/19/2022 Appointment Laboratory Medicine Angélica Granger P.A.-C. [address] [place] [phone] 07/03/2022 Appointment Laboratory Medicine Angélica Granger P.A.-C. [address] [place] [phone] 07/17/2022 Appointment Laboratory Medicine Angélica Granger P.A.-C. [address] [place] [phone] 07/31/2022 Appointment Laboratory Medicine Angélica Granger P.A.-C. [address] [place] [phone] 08/14/2022 Appointment Laboratory Medicine Angélica Granger P.A.-C. [address] [place] [phone] 08/28/2022 Appointment Laboratory Medicine Angélica Granger P.A.-C. [address] [place] [phone] documented as of this encounter Procedures Procedure [...] Results Mycobacterial Culture (10/12/2020 12:12 PM CDT) [employer] Method Time Signature Mycobacterial No growth 11/23/2020 DTL Culture after 42 1:01 PM CDT days of incubation . Specimen Anatomical Collection Method Collection Time Receive d Time (Source) Location / / Volume Laterality Sputum (Sputum) 10/12/2020 12:12 10/13/19 21 PM CDT 12:55 PM CDT Comment: Specimen Source Site: Sputum Connie CottrellB.S. LAB MICROBIOLOGY - GENERAL ORDERABLES Performing Organization Address City/[facility]/ZIP Code Phon e Number [facility] - [address] [place], [place] [address] [facility] [place] [address] Laboratories-[facility] [address] Acid Fast Smear For Mycobacterium (10/12/2020 12:12 PM CDT) [employer] Method Time Signature Acid Fast Smear Negative. 10/12/2020 DTL For Mycobacterium 10:22 PM CDT Specimen Anatomical Collection Method Collection Time Receive d Time (Source) Location / / Volume Laterality Sputum (Sputum) 10/12/2020 12:12 10/13/19 21 PM CDT 12:55 PM CDT Comment: Specimen Source Site: Sputum Connie CottrellB.S. LAB MICROBIOLOGY - GENERAL ORDERABLES Performing Organization Address City/State/ZIP Code Phon e Number [facility] - [address] [facility], [place] [address] [facility] [place] [address] Laboratories-[address] (ABNORMAL) Fungal Culture, Routine (10/12/2020 12:12 PM CDT) [facility] Method Time Signature Fungal ASPERGILLUS FUMIGATUS COMPLEX [...] City/State/ZIP Code Phon e Number [facility] - 200 [place], [place] [address] [place] [address] [place] [address] Fungal Smear (10/12/2020 12:12 PM CDT) athologist Signature Fungal Smear Negative. 10/12/2020 DTL 10:39 PM CDT Specimen Anatomical Collection Method Collection Time Receive d Time (Source) Location / / Volume Laterality Sputum (Sputum) 10/12/2020 12:12 10/13/19 21 PM CDT 12:55 PM CDT Comment: Specimen Source Site: Sputum Connie Keller.B.S. LAB MICROBIOLOGY - GENERAL ORDERABLES Performing Organization Address City/State/ZIP Code Phon e Number [facility] - [address] [place], [place] [address] [place] [id number] [place] [address] (ABNORMAL) Bacterial Culture, Aerobic + Susc, Resp [...] City/State/ZIP Code Phon e Number [facility] - [address] [place], [place] [address] [facility] [place] [place] [address] Laboratories-[facility] [address] Gram Stain (10/12/2020 12:12 PM CDT) [facility] Method Time Signature Gram Stain Mixed efrem. [...] City/State/ZIP Code Phon e Number [facility] - [address] [place], [place] [address] [facility] [place] [address] Laboratories-[facility] [address] documented in this encounter Visit Diagnoses Diagnosis Pneumonia documented in this encounter Additional Health Concerns Assessment Noted Time PHQ-9 Depression Total Score: 3 11/22/2019 7:34 AM CDT documented as of this encounter Care Teams Parts Professional Relationship Specialty Start Date End Date Elsewhere, Pcp PCP - General Family Medicine 07/29/17 [facility] - Laboratory Medicine 04/12/[address] [address] documented as of this encounter
--- OUTSIDE RECORDS SUMMARY | 2022-05-17 18:47 | XMS_ITS | Encounter Summary ---
:1955 Author Organization [facility] Address [address] [place] [address] Care Team Providers Name Role Phone Elsewhere, Pcp Primary Care Provider Unavailable Reason for Referral Transplant (Routine) - Closed Specialty Diagnoses / Procedures Referred By Contact Refer red To Contact [facility] Zofia Leyva M.D. [address] [place] [phone] Referral ID Status Reason Start Date Expiration Date Visits Requ ested Visits Authorized [id number] Closed 10/03/2020 10/03/2021 1 1 Encounter Details Date Type Department Care Team Description 10/03/2020 [facility] and Zofia Leyva M.D. Clinical Regeneration in [address] [place] [address] [place] [phone] [place] [address] [phone] Social History Tobacco Use Types Packs/Day Years [...] 12/15/2021 organizations such as zoroastrian groups, unions, [employer] or athletic groups, or school groups? 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 [address] [place] [phone] 05/23/2022 Clinical Admitting/Central Communication Scheduling 05/27/2022 Comprehensive Visit Orthopedic Surgery Markus Sams M.D., Ph.D. [address] [place] [phone] 05/29/2022 Office Visit Otorhinolaryngology Dex Matta APRN, C.N.P., M.S.N. [address] [place] [phone] 05/29/2022 Office Visit Otorhinolaryngology Nadeem Maradiaga, Edmundo, M.S. [address] [place] [phone] 05/31/2022 Appointment Radiology Guilherme Matt MPAS, P.A.-C., M.S. [address] [place] [phone] 06/05/2022 Appointment Laboratory Medicine Angélica Granger P.A.-C. [address] [place] [phone] 06/19/2022 Appointment Laboratory Medicine Angélica Granger P.A.-C. [address] [place] [phone] 07/03/2022 Appointment Laboratory Medicine Angélica Granger P.A.-C. [address] [place] [phone] 07/17/2022 Appointment Laboratory Medicine Angélica Granger P.A.-C. [address] [place] [phone] 07/31/2022 Appointment Laboratory Medicine Angélica Granger P.A.-C. [address] [place] [phone] 08/14/2022 Appointment Laboratory Medicine Angélica Granger P.A.-C. [address] [place] [phone] 08/28/2022 Appointment Laboratory Medicine Angélica Granger P.A.-C. [address] [place] [address], [place] [address] Scheduled Referrals Name Type Priority Associated Order Schedule Diagnoses Transplant Kidney Outpatient Referral Routine Exp ected: office visit 10/03/2020 (clinic) (Approximate), Expires: 10/04/2023 documented as of this encounter Visit Diagnoses Not on filedocumented in this encounter Additional Health Concerns Assessment Noted Time PHQ-9 Depression Total Score: 3 11/22/2019 7:34 AM CDT documented as of this encounter Care Teams Agent Ticketing Gate Relationship Specialty Start Date End Date Elsewhere, Pcp PCP - General Family Medicine 07/29/17 [facility] - Laboratory Medicine 04/12/20 [place] [address] documented as of this encounter
--- OUTSIDE RECORDS SUMMARY | 2022-05-17 18:47 | XMS_ITS | Encounter Summary ---
:1955 Author Organization [facility] Address [address] [place] [address] Care Team Providers Name Role Phone Elsewhere, Pcp Primary Care Provider Unavailable Reason for Visit Reason Comments Communication psych order Encounter Details Date Type Department Care Team Description 09/15/2020 [facility]psych Communication [facility] for Lilia order ) Transplantation and R.N., Clinical Regeneration C.C.T.C. 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 [address] [place] [phone] 05/23/2022 Clinical Admitting/Central Communication Scheduling 05/27/2022 Comprehensive Visit Orthopedic Surgery Markus Sams M.D., Ph.D. [address] [place] [phone] 05/29/2022 Office Visit Otorhinolaryngology Dex Matta APRN CDemetriusNDemetriusP., M.S.N. [address] [place] [phone] 05/29/2022 Office Visit Otorhinolaryngology Nadeem Maradiaga, Edmundo, M.S. [address] [place] [phone] 05/31/2022 Appointment Radiology Guilherme Matt, RASTA, Edmundo, M.S. [address] [place] [phone] 06/05/2022 Appointment Laboratory Medicine Angélica Granger P.A.-C. [address] [place] [phone] 06/19/2022 Appointment Laboratory Medicine Angélica Granger P.A.-C. [address] [place] [phone] 07/03/2022 Appointment Laboratory Medicine Angélica Granger P.A.-C. [address] [place] [phone] 07/17/2022 Appointment Laboratory Medicine Angélica Granger P.A.-C. [address] [place] [phone] 07/31/2022 Appointment Laboratory Medicine Angélica Granger P.A.-C. [address] [place] [phone] 08/14/2022 Appointment Laboratory Medicine Angélica Granger P.A.-C. [address] [place] [phone] 08/28/2022 Appointment Laboratory Medicine Angélica Granger P.A.-C. [address] [place] [phone] documented as of this encounter Visit Diagnoses Not on filedocumented in this encounter Additional Health Concerns Assessment Noted Time PHQ-9 Depression Total Score: 3 11/22/2019 7:34 AM CDT documented as of this encounter Care Teams Ornament Setter Relationship Specialty Start Date End Date Elsewhere, Pcp PCP - General Family Medicine 07/29/17 [facility] - Laboratory Medicine 04/12/[address] [address] documented as of this encounter
--- OUTSIDE RECORDS SUMMARY | 2022-05-17 18:48 | XMS_ITS | Encounter Summary ---
:1955 Author Organization [facility] Address [address] [place] [address] Care Team Providers Name Role Phone Elsewhere, Pcp Primary Care Provider Unavailable Encounter Details Date Type Department Care Team Description 09/01/2020 Orders Only Curt aguirre [facility] Trung Plasencia for Transplantation and Mayuri Wyatt. 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 [address] [place] [phone] 05/23/2022 Clinical Admitting/Central Communication Scheduling 05/27/2022 Comprehensive Visit Orthopedic Surgery Markus Sams M.D., Ph.D. [address] [place] [phone] 05/29/2022 Office Visit Otorhinolaryngology Dex Matta APRN, C.N.P., M.S.N. [address] [place] [phone] 05/29/2022 Office Visit Otorhinolaryngology Nadeem Maradiaga, P.Murtaza.-Arley., M.S. [address] [place] [phone] 05/31/2022 Appointment Radiology Guilherme Matt, RASTA, PMaryanne., M.S. [address] [place] [phone] 06/05/2022 Appointment Laboratory Medicine Angélica Granger P.A.-C. [address] [place] [phone] 06/19/2022 Appointment Laboratory Medicine Angélica Granger P.A.-C. [address] [place] [phone] 07/03/2022 Appointment Laboratory Medicine Angélica Granger P.A.-C. [address] [place] [phone] 07/17/2022 Appointment Laboratory Medicine Angélica Granger P.A.-C. [address] [place] [phone] 07/31/2022 Appointment Laboratory Medicine Angélica Granger P.A.-C. [address] [place] [phone] 08/14/2022 Appointment Laboratory Medicine Angélica Granger P.A.-C. [address] [place] [phone] 08/28/2022 Appointment Laboratory Medicine Angélica Granger P.A.-C. [address] [place] [phone] documented as of this encounter Visit Diagnoses Not on filedocumented in this encounter Additional Health Concerns Assessment Noted Time PHQ-9 Depression Total Score: 3 11/22/2019 7:34 AM CDT documented as of this encounter Care Teams Casework Manager Relationship Specialty Start Date End Date Elsewhere, Pcp PCP - General Family Medicine 07/29/17 [facility] - Laboratory Medicine 04/12/[address] [address] documented as of this encounter
--- OUTSIDE RECORDS SUMMARY | 2022-05-17 18:48 | XMS_ITS | Encounter Summary ---
:1955 Author Organization [facility] Address [address] [place] [address] Care Team Providers Name Role Phone Elsewhere, Pcp Primary Care Provider Unavailable Encounter Details Date Type Department Care Team Description 08/30/2020 Hospital Encounter Department of [facility], [facility] And Laboratory Medicine Sada Hobson Chronic Kidney in [address] Disease Stage 4 (HCC) [place], [place] [address] [facility] [phone] [place], [place] [phone] (Work) [phone] Social History Tobacco Use Types Packs/Day Years [...] at Date Recorded Male 05/16/2020 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 Medication Therapy Custodial Not Anticoagulant sodium chloride USE 4 ML [...] daily. traZODone (DESYREL) 100 Take 1 tablet by 0 201610/12/2020 mg tablet mouth at bedtime as needed for sleep. Maintenance documented as of this encounter Plan of Treatment Upcoming Encounters Date Type Specialty Care Team Description 05/22/2022 Appointment Laboratory Medicine Angélica Granger P.A.-Arley. [address] [place] [phone] 05/23/2022 Clinical Admitting/Central Communication Scheduling 05/27/2022 Comprehensive Visit Orthopedic Surgery Markus Sams M.D., Ph.D. [address] [place] [phone] 05/29/2022 Office Visit Otorhinolaryngology Dex Matta APRN, C.N.P., M.S.N. [address] [place] [phone] 05/29/2022 Office Visit Otorhinolaryngology Nadeem Maradiaga P.A.-Arley., M.S. [address] [place] [phone] 05/31/2022 Appointment Radiology Guilherme Matt MPAS, Edmundo, M.S. [address] [place] [address] [phone] 06/05/2022 Appointment Laboratory Medicine Angélica Granger P.A.-C. [address] [place] [phone] 06/19/2022 Appointment Laboratory Medicine Angélica Granger P.A.-C. [address] [place] [phone] 07/03/2022 Appointment Laboratory Medicine Anéglica Granger P.A.-C. [address] [place] [phone] 07/17/2022 Appointment Laboratory Medicine Angélica Granger P.A.-C. [address] [place] [phone] 07/31/2022 Appointment Laboratory Medicine Angélica Granger P.A.-C. [address] [place] [phone] 08/14/2022 Appointment Laboratory Medicine Angélica Granger P.A.-C. [address] [place] [phone] 08/28/2022 Appointment Laboratory Medicine Angélica Granger P.A.-C. [address] [place] [phone] documented as of this encounter Procedures Procedure Name Priority Date/Time Associated Diagnosis Comme nts LIPID PANEL, S Routine 08/30/2020 8:58 AM Hypertension And Res ults for this INDUSTRIAL FABRIC CUTTER Chronic Kidney procedure are in Disease Stage 4 (HCC) the re sults section. RENAL FUNCTION Routine 08/30/2020 8:58 AM Hypertension And Res ults for this PANEL, S INDUSTRIAL FABRIC CUTTER Chronic Kidney procedure are in Disease Stage 4 (HCC) the re sults section. CYSTATIN C WITH EGFR Routine 08/30/2020 8:58 AM Hypertension A nd Results for this INDUSTRIAL FABRIC CUTTER Chronic Kidney procedure are in Disease Stage 4 (HCC) the re sults section. IRON AND TOT Routine 08/30/2020 8:58 AM Hypertension And Resul ts for this IRON-BINDING INDUSTRIAL FABRIC CUTTER Chronic Kidney procedure are in CAPACITY, S/P Disease Stage 4 (HCC) the r esults section. 25-HYDROXYVITAMIN D2 Routine 08/30/2020 8:58 AM Hypertension A nd Results for this AND D3, S INDUSTRIAL FABRIC CUTTER Chronic Kidney procedure are in Disease Stage 4 (HCC) the re sults section. CBC WITH Routine 08/30/2020 8:58 AM Hypertension And Resul ts for this DIFFERENTIAL, B INDUSTRIAL FABRIC CUTTER Chronic Kidney procedure are in Disease Stage 4 (HCC) the re sults section. PARATHYROID HORMONE Routine 08/30/2020 8:58 AM Hypertension An d Results for this (PTH), S INDUSTRIAL FABRIC CUTTER Chronic Kidney procedure are in Disease Stage 4 (HCC) the re sults section. MAGNESIUM, S Routine 08/30/2020 8:58 AM Hypertension And Resul ts for this INDUSTRIAL FABRIC CUTTER Chronic Kidney procedure are in Disease Stage 4 (HCC) the re sults section. FERRITIN, S Routine 08/30/2020 8:58 AM Hypertension And Resul ts for this INDUSTRIAL FABRIC CUTTER Chronic Kidney procedure are in Disease Stage 4 (HCC) the re sults section. documented in this encounter Results 25-Hydroxyvitamin D2 and D3 (08/30/2020 8:58 AM INDUSTRIAL FABRIC CUTTER) athologist Signature 25-Hydroxy D2 <4.0 ng/mL 09/01/2020 SDSC 11:48 PM INDUSTRIAL FABRIC CUTTER 25-Hydroxy D3 52 ng/mL 09/01/2020 SDSC 11:48 PM INDUSTRIAL FABRIC CUTTER 25-Hydroxy D 52 ng/mL 09/01/2020 SDSC Total 11:48 PM INDUSTRIAL FABRIC CUTTER Comment: Interpretation: 51-80 ng/mL (increased r isk [...] (Blood, 08/30/2020 8:58 AM 09/01/19 7:43 Venous) INDUSTRIAL FABRIC CUTTER AM INDUSTRIAL FABRIC CUTTER Joce Bailey M.D. LAB BLOOD ADD-ON Performing Organization Address City/State/ZIP Code Phon e Number [facility] [address] [place] [address] [place] [address] Laboratory Medicine and Pathology [address] [place] [address] Dr. MURILLO (ABNORMAL) Parathyroid Hormone (PTH) (08/30/2020 8:58 AM INDUSTRIAL FABRIC CUTTER) P athologist Signature Parathyroid 83 (H) 15 - 65 08/30/2020 [facility] Hormone (PTH), S pg/mL 6:22 PM INDUSTRIAL FABRIC CUTTER Comment: Biotin has been identified by the [facility] as a potential interfering substance. ??Higher concentr ations of biotin may be found in multivitamins, hair/nail supple ments, and workout supplements. ??If the result does not [facility] clinical observations, repeat testing after patient refrains fr om the use of supplements for at least 12 hours. Specimen Anatomical Collection Method Collection Time Receive d Time (Source) Location / / Volume Laterality Blood (Blood, 08/30/2020 8:58 AM 08/31/19 21 3:38 Venous) INDUSTRIAL FABRIC CUTTER PM INDUSTRIAL FABRIC CUTTER Joce Bailey M.D. LAB BLOOD ADD-ON Performing Organization Address City/State/ZIP Code Phon e Number [facility]- [address] [place] [address] [facility] [place] [address] [facility] [address] Ferritin (08/30/2020 8:58 AM INDUSTRIAL FABRIC CUTTER) P athologist Signature Ferritin, S 208 31 - 409 08/30/2020 [facility] mcg/L 10:54 AM INDUSTRIAL FABRIC CUTTER Comment: Biotin has been identified by the [facility] as a potential interfering substance. ??Higher concentr ations of biotin may be found in multivitamins, hair/nail supple ments, and workout supplements. ??If the result does not [facility] clinical observations, repeat testing after patient refrains fr om the use of supplements for at least 12 hours. Specimen Anatomical Collection Method Collection Time Receive d Time (Source) Location / / Volume Laterality Blood (Blood, 08/30/2020 8:58 AM 08/31/19 Venous) INDUSTRIAL FABRIC CUTTER 10:28 AM INDUSTRIAL FABRIC CUTTER Joce Bailey M.D. LAB BLOOD ADD-ON Performing Organization Address City/State/ZIP Code Phon e Number [facility]- [address] [place] [address] [place] [address] System in [place] [address] (ABNORMAL) Iron and Total Iron-Binding Capacity (08/30/2020 8:58 AM INDUSTRIAL FABRIC CUTTER) P athologist Signature Iron 57 50 - 150 08/30/2020 [facility] mcg/dL 5:53 PM INDUSTRIAL FABRIC CUTTER Total Iron 231 (L) 250 - 400 08/30/2020 [facility] Binding mcg/dL 5:53 PM INDUSTRIAL FABRIC CUTTER Capacity Percent 25 14 - 50 % 08/30/2020 [facility] Saturation 5:53 PM INDUSTRIAL FABRIC CUTTER Specimen Anatomical Collection Method Collection Time Receive d Time (Source) Location / / Volume Laterality Blood (Blood, 08/30/2020 8:58 AM 08/31/19 3:38 Venous) INDUSTRIAL FABRIC CUTTER PM INDUSTRIAL FABRIC CUTTER Joce Bailey M.D. LAB BLOOD ADD-ON Performing Organization Address City/State/ZIP Code Phon e Number [facility]- [address] [place] [address] [facility] [place] [address] [facility] [address] (ABNORMAL) CBC with Differential, Blood (08/30/2020 8:58 AM INDUSTRIAL FABRIC CUTTER) Patholo gist Method Time Signature Hemoglobin 9.8 (L) 13.2 - 08/30/2020 FB60 16.6 g/dL 9:08 AM INDUSTRIAL FABRIC CUTTER Hematocrit 29.5 (L) 38.3 - 08/30/2020 FB60 48.6 % 9:08 AM INDUSTRIAL FABRIC CUTTER Erythrocytes 3.16 (L) 4.35 - 08/30/2020 FB60 5.65 9:08 AM INDUSTRIAL FABRIC CUTTER x10(12)/L MCV 93.4 78.2 - 08/30/2020 FB60 97.9 fL 9:08 AM INDUSTRIAL FABRIC CUTTER RBC Distrib Width 12.8 11.8 - 08/30/2020 FB60 14.5 % 9:08 AM INDUSTRIAL FABRIC CUTTER Platelet Count 223 135 - 317 08/30/2020 FB60 x10(9)/L 9:08 AM INDUSTRIAL FABRIC CUTTER Leukocytes 3.1 (L) 3.4 - 9.6 08/30/2020 FB60 x10(9)/L 9:08 AM INDUSTRIAL FABRIC CUTTER Neutrophils 1.82 1.56 - 08/30/2020 FB60 6.45 9:08 AM INDUSTRIAL FABRIC CUTTER x10(9)/L Lymphocytes 0.73 (L) 0.95 - 08/30/2020 FB60 3.07 9:08 AM INDUSTRIAL FABRIC CUTTER x10(9)/L Monocytes 0.43 0.26 - 08/30/2020 FB60 0.81 9:08 AM INDUSTRIAL FABRIC CUTTER x10(9)/L Eosinophils 0.08 0.03 - 08/30/2020 FB60 0.48 9:08 AM INDUSTRIAL FABRIC CUTTER x10(9)/L Basophils 0.01 0.01 - 08/30/2020 FB60 0.08 9:08 AM INDUSTRIAL FABRIC CUTTER x10(9)/L Specimen Anatomical Collection Method Collection Time Receive d Time (Source) Location / / Volume Laterality Blood (Blood, 08/30/2020 8:58 AM 08/31/19 21 9:00 Venous) INDUSTRIAL FABRIC CUTTER AM INDUSTRIAL FABRIC CUTTER Joce Bailey M.D. LAB BLOOD ADD-ON Performing Organization Address City/State/ZIP Code Phon e Number [facility]- [address] [place] [address] [facility] [address] [place] [address] System in [place] [address] (ABNORMAL) Magnesium (08/30/2020 8:58 AM INDUSTRIAL FABRIC CUTTER) P athologist Signature Magnesium, P 2.8 (H) 1.7 - 2.3 08/30/2020 [facility] mg/dL 10:53 AM INDUSTRIAL FABRIC CUTTER Specimen Anatomical Collection Method Collection Time Receive d Time (Source) Location / / Volume Laterality Blood (Blood, 08/30/2020 8:58 AM 08/31/19 21 Venous) INDUSTRIAL FABRIC CUTTER 10:28 AM INDUSTRIAL FABRIC CUTTER Joce Bailey M.D. LAB BLOOD ADD-ON Performing Organization Address City/State/ZIP Code Phon e Number [facility]- [address] [facility] [[email or web address] [place] [address] [place] [address] System in [place] [address] [facility] [[email or web address]] Lipid Panel (08/30/2020 8:58 AM INDUSTRIAL FABRIC CUTTER) P athologist Signature Cholesterol, 152 mg/dL 08/30/2020 [facility] Total 10:53 AM INDUSTRIAL FABRIC CUTTER Comment: ----REFERENCE VALUE---- Desirable: < 200 Borderline high: 200 - 239 High: > or = 240 Triglycerides 149 mg/dL 08/30/2020 10:53 AM INDUSTRIAL FABRIC CUTTER [facility] Comment: ----REFERENCE VALUE---- Normal: <150 Borderline high: 150-199 High: 200-499 Very high: > or =500 Cholesterol, HDL 43 >=40 mg/dL 08/30/2020 10:53 AM CS T [facility] Calculated LDL 79 mg/dL 08/30/2020 10:53 AM INDUSTRIAL FABRIC CUTTER O YAO Comment: ----REFERENCE VALUE---- Desirable: <100 Above Desirable: 100-129 Borderline high: 130-159 High: 160-189 Very high: > or =190 Cholesterol, Non-HDL, Calculated 109 mg/dL 021 10:53 AM INDUSTRIAL FABRIC CUTTER [facility] Comment: ----REFERENCE VALUE---- Desirable: <130 Above Desirable: 130-159 Borderline high: 160-189 High: 190-219 Very high: > or =220 Specimen Anatomical Collection Method Collection Time Receive d Time (Source) Location / / Volume Laterality Blood (Blood, 08/30/2020 8:58 AM 08/31/19 21 Venous) INDUSTRIAL FABRIC CUTTER 10:28 AM INDUSTRIAL FABRIC CUTTER Joce Bailey M.D. LAB BLOOD ADD-ON Performing Organization Address City/State/ZIP Code Phon e Number [facility]- [address] [facility] [[email or web address]] [place] [address] [place] [address] System in [place] [address] (ABNORMAL) Cystatin C with Estimated GFR, S (08/30/2020 8:58 AM INDUSTRIAL FABRIC CUTTER) P athologist Signature eGFR by 11 >60 08/31/2020 DAVE Cystatin C mL/min/BSA 7:48 AM INDUSTRIAL FABRIC CUTTER Comment: ----ADDITIONAL INFORMATION---- Cystatin C-based eGFR may differ substan tially from creatinine-based eGFR in patients with a bnormal muscle mass or acutely changing renal function. ??Pl ease interpret together with relevant clinical features. Cystatin C, S 4.39 (H) 0.77 - 1.42 mg/L 08/31/2020 7:48 AM INDUSTRIAL FABRIC CUTTER DAVE Specimen Anatomical Collection Method Collection Time Receive d Time (Source) Location / / Volume Laterality Blood (Blood, 08/30/2020 8:58 AM 09/01/19 21 7:07 Venous) INDUSTRIAL FABRIC CUTTER AM INDUSTRIAL FABRIC CUTTER Joce Bailey M.D. LAB BLOOD ADD-ON Performing Organization Address City/State/ZIP Code Phon e Number [facility] - [address] [place], [place] [address] [place] [address] [facility] [address] (ABNORMAL) Renal Function Panel (08/30/2020 8:58 AM INDUSTRIAL FABRIC CUTTER) Analysis Performed At Patho logist Time Signature Potassium, P 4.2 3.6 - 5.2 08/30/2020 [facility] mmol/L 10:53 AM INDUSTRIAL FABRIC CUTTER Sodium, P 136 135 - 145 08/30/2020 [facility] mmol/L 10:53 AM INDUSTRIAL FABRIC CUTTER Chloride, P 101 98 - 107 08/30/2020 [facility] mmol/L 10:53 AM INDUSTRIAL FABRIC CUTTER Bicarbonate, P 26 22 - 29 08/30/2020 [facility] mmol/L 10:53 AM INDUSTRIAL FABRIC CUTTER Anion Gap, P 9 7 - 15 08/30/2020 [facility] 10:53 AM INDUSTRIAL FABRIC CUTTER BUN (Blood Urea 55 (H) 8 - 24 08/30/2020 [facility] Nitrogen), P mg/dL 10:53 AM INDUSTRIAL FABRIC CUTTER Creatinine 3.58 (H) 0.74 - 08/30/2020 [facility] 1.35 mg/dL 10:53 AM INDUSTRIAL FABRIC CUTTER eGFR-Black/Afri 19 (L) >=60 08/30/2020 [facility] can Samoan mL/min/BSA 10:53 AM INDUSTRIAL FABRIC CUTTER Comment: ----ADDITIONAL INFORMATION---- Estimated GFR calculated using the 2009 CKD_EPI creatinine equation. eGFR Non-Black/ 17 (L) >=60 mL/min/BSA 08/30/2020 10:53 AM INDUSTRIAL FABRIC CUTTER [facility] Samoan Comment: ----ADDITIONAL INFORMATION---- Estimated GFR calculated using the 2009 CKD_EPI creatinine equation. Calcium, Total, P 8.9 8.8 - 10.2 mg/dL 08/30/2020 10:5 3 AM INDUSTRIAL FABRIC CUTTER [facility] Glucose, P 119 70 - 140 mg/dL 08/30/2020 10:53 AM INDUSTRIAL FABRIC CUTTER [facility] Albumin, P 3.9 3.5 - 5.0 g/dL 08/30/2020 10:53 AM INDUSTRIAL FABRIC CUTTER [facility] Phosphorus (Inorganic), P 4.2 2.5 - 4.5 mg/dL 08/31/19 4:59 PM INDUSTRIAL FABRIC CUTTER [facility] Specimen Anatomical Collection Method Collection Time Receive d Time (Source) Location / / Volume Laterality Blood (Blood, 08/30/2020 8:58 AM 08/31/19 Venous) INDUSTRIAL FABRIC CUTTER 10:28 AM INDUSTRIAL FABRIC CUTTER Narrative [facility] - 08/30/2020 4:59 PM INDUSTRIAL FABRIC CUTTER Specimen Information: Specimen ID: [id number] Specimen Type: Blood Specimen Collection Start Date: 08/31/19 ??8:58 AM Specimen Received Date: 08/30/2020 10:28 AM Specimen ID: [id number] Specimen Type: Blood Specimen Collection Start Date: 08/31/19 ??8:58 AM Specimen Received Date: 08/30/2020 ??3:3 8 PM Joce Bailey M.D. LAB BLOOD ADD-ON Performing Organization Address City/State/ZIP Code Phon e Number [facility]- [address] [place] [address] [place] [address] System in [place] [address] [place] [address] [facility] [address] documented in this encounter Visit Diagnoses Diagnosis Hypertension And Chronic Kidney Disease Stage 4 (HCC) documented in this encounter Additional Health Concerns Assessment Noted Time PHQ-9 Depression Total Score: 3 11/22/2019 7:34 AM CDT documented as of this encounter Care Teams Critical Care Clinical Nurse Specialist Relationship Specialty Start Date End Date Elsewhere, Pcp PCP - General Family Medicine 07/29/17 [facility] [place] - Laboratory Medicine 04/12/20 [place] [address] documented as of this encounter
--- OUTSIDE RECORDS SUMMARY | 2022-05-17 18:48 | XMS_ITS | Encounter Summary ---
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 ROOM CLEANER documented in this encounter Plan of Treatment Upcoming Encounters Date Type Specialty Care Team Description 05/22/2022 Appointment Laboratory Medicine Angélica Granger P.A.-C. [address] [place] [phone] 05/23/2022 Clinical Admitting/Central Communication Scheduling 05/27/2022 Comprehensive Visit Orthopedic Surgery Markus Sams M.D., Ph.D. [address] [place] [phone] 05/29/2022 Office Visit Otorhinolaryngology Dex Matta APRN, C.N.P., M.S.N. [address] [place] [phone] 05/29/2022 Office Visit Otorhinolaryngology Nadeem Maradiaga, Jennifer., M.S. [address] [place] [phone] 05/31/2022 Appointment Radiology Guilherme Matt, RASTA, Jennifer., M.S. [address] [place] [phone] 06/05/2022 Appointment Laboratory Medicine Angélica Granger P.A.-C. [address] [place] [phone] 06/19/2022 Appointment Laboratory Medicine Angélica Granger P.A.-C. [address] [place] [phone] 07/03/2022 Appointment Laboratory Medicine Angélica Granger P.A.-C. [address] [place] [phone] 07/17/2022 Appointment Laboratory Medicine Angélica Granger P.A.-C. [address] [place] [phone] 07/31/2022 Appointment Laboratory Medicine Angélica Granger P.A.-C. [address] [place] [phone] 08/14/2022 Appointment Laboratory Medicine Angélica Granger P.A.-C. [address] [place] [phone] 08/28/2022 Appointment Laboratory Medicine Angélica Granger P.A.-C. [address] [place] [phone] documented as of this encounter Visit Diagnoses Not on filedocumented in this encounter Additional Health Concerns Assessment Noted Time PHQ-9 Depression Total Score: 3 11/22/2019 7:34 AM CDT documented as of this encounter Care Teams Profiling Machine Set Up Operator Relationship Specialty Start Date End Date Elsewhere, Pcp PCP - General Family Medicine 07/29/17 [facility] - Laboratory Medicine 04/12/[address] [phone] documented as of this encounter
--- OUTSIDE RECORDS SUMMARY | 2022-05-17 18:48 | XMS_ITS | Encounter Summary ---
:1955 Author Organization [facility] Address [address] [place] [address] Care Team Providers Name Role Phone Elsewhere, Pcp Primary Care Provider Unavailable Reason for Referral MRI/CAT/PET Scan (Routine) - Closed Specialty Diagnoses / Procedures Referred By Contact Refer red To Contact Radiology Diagnoses Pneumonia Connie Aaron [facility] Procedures CT Chest without IV Contrast M.B.B.S. [address] [place] [address] Referral ID Status Reason Start Date Expiration Date Visits Requ ested Visits Authorized [id number] Closed 08/28/2020 08/28/2021 1 1 INE LONG GOODS HELPER Reason for Visit MRI/CAT/PET Scan (Routine) - Closed Specialty Diagnoses / Procedures Referred By Contact Refer red To Contact Radiology Diagnoses Pneumonia Connie Aaron, [facility] Procedures CT Chest without IV Contrast M.B.B.S. 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 Medication Therapy Ultrasonographer Not Anticoagulant sodium chloride USE 4 ML VIA 0 08/30/2020 021 (NEBUSAL) 3 % nebulizer NEBULIZER TWICE solution DAILY tacrolimus (PROGRAF) Take 2 capsules (1 360 capsule 3 202007/16/2021 0.5 mg mg total) by mouth 2 capsuleIndications: (two) times a day. Transplant Liver (HCC), Medication Therapy Ultrasonographer Not Anticoagulant torsemide (DEMADEX) 10 Take 3 [...] Laboratory Medicine Angélica Granger P.A.-C. [address] [place] [phone] 05/23/2022 Clinical Admitting/Central Communication Scheduling 05/27/2022 Comprehensive Visit Orthopedic Surgery Markus Sams M.D., Ph.D. [address] [place] [phone] 05/29/2022 Office Visit Otorhinolaryngology Dex Matta APRN, C.N.P., M.S.N. [address] [place] [phone] 05/29/2022 Office Visit Otorhinolaryngology Nadeem Maradiaga, Jennifer., M.S. [address] [place] [phone] 05/31/2022 Appointment Radiology Guilherme Matt, RASTA, Jennifer., M.S. [address] [place] [phone] 06/05/2022 Appointment Laboratory Medicine Angélica Granger P.A.-C. [address] [place] [phone] 06/19/2022 Appointment Laboratory Medicine Angélica Granger P.A.-C. [address] [place] [phone] 07/03/2022 Appointment Laboratory Medicine Angélica Granger P.A.-C. [address] [place] [phone] 07/17/2022 Appointment Laboratory Medicine Angélica Granger P.A.-C. [address] [place] [phone] 07/31/2022 Appointment Laboratory Medicine Angélica Granger P.A.-C. [address] [place] [phone] 08/14/2022 Appointment Laboratory Medicine Angélica Granger P.A.-C. [address] [place] [address] [phone] 08/28/2022 Appointment Laboratory Medicine Angélica Granger P.A.-C. [address] [place] [phone] documented as of this encounter Procedures Procedure Name Priority Date/Time Associated Comments Diagnosis CT CHEST WITHOUT RAD - Routine 08/31/2020 3:07 Pneumonia Results for this IV CONTRAST (most inpatients PM MACHINE LONG GOODS HELPER procedure a re in and all the results outpatients) section. documented in this encounter Results CT Chest without IV Contrast (08/31/2020 3:07 PM MACHINE LONG GOODS HELPER) Anatomical Region Laterality Modality Chest, Thoracic RST LOS, Thoracic ARZ N/A Co mputed Tomography, Computed LOS, Thoracic FLA LOS Tomography Specimen (Source) Anatomical Collection Method Collection Time Re ceived Time Location / / Volume Laterality 08/31/2020 3:10 PM MACHINE LONG GOODS HELPER Impressions 08/31/2020 3:15 PM MACHINE LONG GOODS HELPER 1. Improved bibasilar consolidation compatible with infection or inflammation since 01/31/2020. 2. Persistent airway wall thickening, ar eas of mucus plugging and peribronchiolar nodularity also compatib le with inflammatory or infectious airway disease. Narrative 08/31/2020 3:15 PM MACHINE LONG GOODS HELPER EXAM: CT CHEST WITHOUT IV CONTRAST COMPARISON: [...] the visualized upper abdomen appears negative. Connie John. IMG CT PROCEDURES documented in this encounter Visit Diagnoses Diagnosis Pneumonia documented in this encounter Additional Health Concerns Assessment Noted Time PHQ-9 Depression Total Score: 3 11/22/2019 7:34 AM CDT documented as of this encounter Care Teams Cash Applications Specialist Relationship Specialty Start Date End Date Elsewhere, Pcp PCP - General Family Medicine 07/29/17 [facility] - Laboratory Medicine 04/12/20 [place] [phone] documented as of this encounter
--- OUTSIDE RECORDS SUMMARY | 2022-05-17 18:48 | XMS_ITS | Encounter Summary ---
:1955 Author Organization [facility] Address [address] [place] [address] Care Team Providers Name Role Phone Elsewhere, Pcp Primary Care Provider Unavailable Reason for Visit Reason Comments COVID Inquiry Encounter Details Date Type Department Care Team Description 09/14/2020 Clinical Communication Marilynn Ty, COVID Inquiry Center for M.D. 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 documented in this encounter Plan of Treatment Upcoming Encounters Date Type Specialty Care Team Description 05/22/2022 Appointment Laboratory Medicine Angélica Granger P.A.-C. [address] [place] [address] 05/23/2022 Clinical Admitting/Central Communication Scheduling 05/27/2022 Comprehensive Visit Orthopedic Surgery Markus Sams M.D., Ph.D. [address] [place] [phone] 05/29/2022 Office Visit Otorhinolaryngology Dex Matta APRN, C.N.P., M.S.N. [address] [place] [phone] 05/29/2022 Office Visit Otorhinolaryngology Nadeem Maradiaga, Edmundo, M.S. [address] [place] [phone] 05/31/2022 Appointment Radiology Guilherme Matt, Edmundo MAGDALENO, M.S. [address] [place] [phone] 06/05/2022 Appointment Laboratory Medicine Angélica Granger P.A.-C. [address] [place] [phone] 06/19/2022 Appointment Laboratory Medicine Angélica Granger P.A.-C. [address] [place] [phone] 07/03/2022 Appointment Laboratory Medicine Angélica Granger P.A.-C. [address] [place] [phone] 07/17/2022 Appointment Laboratory Medicine Angélica Granger P.A.-C. [address] [place] [phone] 07/31/2022 Appointment Laboratory Medicine Angélica Granger P.A.-C. [address] [place] [phone] 08/14/2022 Appointment Laboratory Medicine Angélica Granger P.A.-C. [address] [place] [phone] 08/28/2022 Appointment Laboratory Medicine Angélica Granger P.A.-C. [address] [place] [phone] documented as of this encounter Visit Diagnoses Not on filedocumented in this encounter Additional Health Concerns Assessment Noted Time PHQ-9 Depression Total Score: 3 11/22/2019 7:34 AM CDT documented as of this encounter Care Teams Management Professionals Relationship Specialty Start Date End Date Elsewhere, Pcp PCP - General Family Medicine 07/29/17 [facility] - Laboratory Medicine 04/12/[address] [address] documented as of this encounter
--- OUTSIDE RECORDS SUMMARY | 2022-05-17 18:48 | XMS_ITS | Encounter Summary ---
:1955 Author Organization [facility] Address [address] [place] [address] Care Team Providers Name Role Phone Elsewhere, Pcp Primary Care Provider Unavailable Reason for Visit Reason Comments Chronic Kidney Disease Outpatient (Routine) - Closed Specialty Diagnoses / Procedures Referred By Contact Refer red To Contact Nephrology and [facility] Hypertension Sada [address]son [address] [place] [address] Referral ID Status Reason Start Date Expiration Date Visits Requ ested Visits Authorized [id number] Closed 05/22/2020 05/22/2021 1 1 Encounter Details Date Type Department Care Team Description 08/31/2020 Office Visit Division of Nephrology Mara Bailey Kidney Disease and Hypertension in Sada Hobson Stage 4 Glomerular [place], [place] [address] [facility] Filtration Rate 15-29 [address] [place], [place] (HCC) (Primary Dx) [place] [phone] Social History Tobacco Use Types Packs/Day Years [...] 12/15/2021 organizations such as nondenominational groups, unions, [employer] or athletic groups, or school groups? 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 Interstitial fibrosis with tubular atrophy affects approximately [...] me again in 3 months Contact number: [phone] Joce Bailey M.D. CLEANER Associated attestation - Nicole Peraza M.D. - 06/28/2021 9:41 AM TOP CLEANER I have reviewed pertinent clinical data and discussed the case with Dr. Bailey. I reviewed hisnote note. I agree with the findings and outlined plan. documented in this encounter Plan of Treatment Upcoming Encounters Date Type Specialty Care Team Description 05/22/2022 Appointment Laboratory Medicine Angélica Granger P.A.-C. [address] [place] [phone] 05/23/2022 Clinical Admitting/Central Communication Scheduling 05/27/2022 Comprehensive Visit Orthopedic Surgery Markus Sams M.D., Ph.D. [address] [place] [phone] 05/29/2022 Office Visit Otorhinolaryngology Dex Matta APRN, C.N.P., M.S.N. [address] [place] [phone] 05/29/2022 Office Visit Otorhinolaryngology Nadeem Maradiaga, P.Murtaza.-C., M.S. [address] [place] [address] [phone] 05/31/2022 Appointment Radiology Guilherme Matt MPAS, PEdgar.Marie., M.S. [address] [place] [address] [phone] 06/05/2022 Appointment Laboratory Medicine Angélica Granger P.A.-C. [address] [place] [phone] 06/19/2022 Appointment Laboratory Medicine Angélica Granger P.A.-C. [address] [place] [phone] 07/03/2022 Appointment Laboratory Medicine Angélica Granger P.A.-C. [address] [place] [phone] 07/17/2022 Appointment Laboratory Medicine Angélica Granger P.A.-C. [address] [place] [phone] 07/31/2022 Appointment Laboratory Medicine Angélica Granger P.A.-C. [address] [place] [phone] 08/14/2022 Appointment Laboratory Medicine Angélica Granger P.A.-C. [address] [place] [phone] 08/28/2022 Appointment Laboratory Medicine Angélica Granger P.A.-C. [address] [place] [phone] documented as of this encounter Visit Diagnoses [...] COVID19 Pending 05/23/2021 05/23/2021 05/23/2021 11:53 AM TOP CLEANER COVID19 Pending 05/31/2021 05/31/2021 05/31/2021 3:24 PM TOP CLEANER Assessment Noted Time PHQ-9 Depression Total Score: 3 11/22/2019 7:34 AM CDT documented as of this encounter Care Teams Battalion Fire Chief Relationship Specialty Start Date End Date Elsewhere, Pcp PCP - General Family Medicine 07/29/17 [facility] - Laboratory Medicine 04/12/[address] [address] documented as of this encounter
--- OUTSIDE RECORDS SUMMARY | 2022-05-17 18:48 | XMS_ITS | Encounter Summary ---
:1955 Author Organization [facility] Address [address] [place] [address] Care Team Providers Name Role Phone Elsewhere, Pcp Primary Care Provider Unavailable Reason for Visit Reason Comments Patient Education Encounter Details Date Type Department Care Team Description 08/31/2020 Education Division of Pulmonary Hai Aaron M.B.B.S. [address] [place] [phone] Cough Medicine in [place], [place], Miguel Cardenas, R.R.T., L.R.T. [address] [place] [phone] [place] [address] [place] [phone] Social History Tobacco Use Types Packs/Day [...] Date Recorded Male 05/16/2020 4:27 PM ER RN documented as of this encounter Plan of Treatment Upcoming Encounters Date Type Specialty Care Team Description 05/22/2022 Appointment Laboratory Medicine Angélica Granger, P.A.-C. [address] [place] [address] [phone] 05/23/2022 Clinical Admitting/Central Communication Scheduling 05/27/2022 Comprehensive Visit Orthopedic Surgery Markus Sams M.D., Ph.D. [address] [place] [phone] 05/29/2022 Office Visit Otorhinolaryngology Dex Matta APRN, C.N.P., M.S.N. [address] [place] [phone] 05/29/2022 Office Visit Otorhinolaryngology Nadeem Maradiaga, P.A.-C., M.S. [address] [place] [phone] 05/31/2022 Appointment Radiology UrbanGuilherme MPAS, P.A.-C., M.S. [address] [place] [phone] 06/05/2022 Appointment Laboratory Medicine Angélica Granger P.A.-C. [address] [place] [phone] 06/19/2022 Appointment Laboratory Medicine Angélica Granger P.A.-C. [address] [place] [phone] 07/03/2022 Appointment Laboratory Medicine Angélica Granger P.A.-C. [address] [place] [phone] 07/17/2022 Appointment Laboratory Angélica Royal P.A.-C. [address] [place] [phone] 07/31/2022 Appointment Laboratory Angélica Royal P.A.-C. [address] [place] [phone] 08/14/2022 Appointment Laboratory Angélica Royal P.A.-C. [address] [place] [phone] 08/28/2022 Appointment Laboratory Angélica Royal P.A.-C. [address] [place] [address] [phone] documented as of this encounter Visit Diagnoses Diagnosis Cough Unspecified Type documented in this encounter Additional Health Concerns Assessment Noted Time PHQ-9 Depression Total Score: 3 11/22/2019 7:34 AM CDT documented as of this encounter Care Teams Bunch Maker Relationship Specialty Start Date End Date Elsewhere, Pcp PCP - General Family Medicine 07/29/17 [facility] - Laboratory Medicine 04/12/20 [place] [address] documented as of this encounter
--- OUTSIDE RECORDS SUMMARY | 2022-05-17 18:48 | XMS_ITS | Encounter Summary ---
:1955 Author Organization [facility] Address [address] [place] [address] Care Team Providers Name Role Phone Elsewhere, Pcp Primary Care Provider Unavailable Reason for Referral Transplant (Routine) - Closed Specialty Diagnoses / Procedures Referred By Contact Refer red To Contact Transplant Surgery / Diagnoses Transplant Liver (HCC) Medication Therapy Detention Not Anticoagulant Cirrhosis Cryptogenic (HCC) Screening Examination Prostate Cancer Screening Examination Skin Cancer Willis Mcdermott [facility] Transplant M.DDemetrius [address] [place] [address] Referral ID Status Reason Start Date Expiration Date Visits Requ ested Visits Authorized [id number] Closed 09/14/2020 09/14/2021 1 1 Transplant (Routine) - Closed Specialty Diagnoses / Procedures Referred By Contact Refer red To Contact Transplant Surgery / Diagnoses Transplant Liver (HCC) Medication Therapy Detention Not Anticoagulant Cirrhosis Cryptogenic (HCC) Screening Examination Prostate Cancer Screening Examination Skin Cancer Willis Mcdermott [facility] Transplant M.DDemetrius [address] [place] [address] Referral ID Status Reason Start Date Expiration Date Visits Requ ested Visits Authorized [id number] Closed 09/14/2020 09/14/2021 1 1 Outpatient (Routine) - Closed Specialty Diagnoses / Procedures Referred By Contact Refer red To Contact Diagnoses Transplant Liver (HCC) Medication Therapy Detention Not Anticoagulant Cirrhosis Cryptogenic (HCC) Screening Examination Prostate Cancer Screening Examination Skin Cancer Willis Mcdermott M.D. [facility] Procedures Short renal clearance: Iothalamate (Renal Studies Unit) [address] [place], [place] [address] Referral ID Status Reason Start Date Expiration Date Visits Requ ested Visits Authorized [id number] Closed 09/14/2020 09/14/2021 1 1 Outpatient (Routine) - Closed Specialty Diagnoses / Procedures Referred By Contact Refer red To Contact Diagnoses Transplant Liver (HCC) Medication Therapy Detention Not Anticoagulant Cirrhosis Cryptogenic (HCC) Screening Examination Prostate Cancer Screening Examination Skin Cancer Willis Mcdermott M.D. [facility] Procedures US Liver Transplant [address] [place], [place] [phone] Referral ID Status Reason Start Date Expiration Date Visits Requ ested Visits Authorized [id number] Closed 09/14/2020 09/14/2021 1 1 Transplant (Routine) - Closed Specialty Diagnoses / Procedures Referred By Contact Refer red To Contact Transplant Surgery / Diagnoses Transplant Liver (HCC) Medication Therapy Process Control Tech Not Anticoagulant Cirrhosis Cryptogenic (HCC) Screening Examination Prostate Cancer Screening Examination Skin Cancer Willis Mcdermott [facility] Transplant M.Louie [address] [place] [address] Referral ID Status Reason Start Date Expiration Date Visits Requ ested Visits Authorized [id number] Closed 09/14/2020 09/14/2021 1 1 Transplant (Routine) - Closed Specialty Diagnoses / Procedures Referred By Contact Refer red To Contact Transplant Surgery / Diagnoses Transplant Liver (HCC) Medication Therapy Process Control Tech Not Anticoagulant Cirrhosis Cryptogenic (HCC) Screening Examination Prostate Cancer Screening Examination Skin Cancer Willis Mcdermott [facility] Transplant M.Louie [address] [place] [address] Referral ID Status Reason Start Date Expiration Date Visits Requ ested Visits Authorized [id number] Closed 09/14/2020 09/14/2021 1 1 Encounter Details Date Type Department Care Team Description 09/14/2020 Orders Only Curt Goldberg, Carlisle splant Liver (HCC) (Primary Dx); [facility] Lilia Azevedo R.N., Medication Therapy Process Control Tech Not Anticoagulant; and Clinical Regeneration C.C.T. C. Cirrhosis Cryptogenic (HCC); in [facility] potato chip cooker machine [phone] Screening Examination Prosta te Cancer; [address] [facility] (Work) Screening Examination Skin C ancer; [place] [address] Osteoporosis Without Patholo gical Fracture [phone] Social History Tobacco Use Types Packs/Day Years [...] at Date Recorded Male 05/16/2020 4:27 PM POSTPARTUM RN documented as of this encounter Plan of Treatment Upcoming Encounters Date Type Specialty Care Team Description 05/22/2022 Appointment Laboratory Medicine Angélica Granger P.A.-C. [address] [place] [phone] 05/23/2022 Clinical Admitting/Central Communication Scheduling 05/27/2022 Comprehensive Visit Orthopedic Surgery Markus Sams M.D., Ph.D. [address] [place] [phone] 05/29/2022 Office Visit Otorhinolaryngology Dex Matta APRN, C.N.P., M.S.N. [address] [place] [phone] 05/29/2022 Office Visit Otorhinolaryngology Nadeem Maradiaga, P.Murtaza.-Arley., M.S. [address] [place] [phone] 05/31/2022 Appointment Radiology Guilherme Matt MPAS, PEdgar.Marie., M.S. [address] [place] [phone] 06/05/2022 Appointment Laboratory Medicine Angélica Granger P.A.-C. [address] [place] [phone] 06/19/2022 Appointment Laboratory Medicine Angélica Granger P.A.-C. [address] [place] [phone] 07/03/2022 Appointment Laboratory Medicine Angélica Granger P.A.-C. [address] [place] [phone] 07/17/2022 Appointment Laboratory Medicine Angélica Granger P.A.-CDemetrius [address] [place] [phone] 07/31/2022 Appointment Laboratory Medicine Angélica Granger P.A.-C. [address] [place] [phone] 08/14/2022 Appointment Laboratory Medicine Angélica Granger P.A.-CDemetrius [address] [place] [phone] 08/28/2022 Appointment Laboratory Medicine Angélica Granger P.A.-CDemetrius [address] [place] [phone] Scheduled Orders Name Type Priority Associated Diagnoses [...] (HCC) 11/27/2020 (clinic) Medication Therapy (Approxim ate), Process Control Tech Not Expires: Anticoagulant 09/14/2021 Cirrhosis Cryptogenic (HCC ) Screening Examination Prostate Cancer Screening Examination Skin Cancer Transplant Liver Outpatient Referral Routine Transplant Liver Expected: office visit (HCC) 11/27/2020 (clinic) Medication Therapy (Approxim ate), Process Control Tech Not Expires: Anticoagulant 09/14/2021 Cirrhosis Cryptogenic (HCC ) Screening Examination Prostate Cancer Screening Examination Skin Cancer Transplant Liver Outpatient Referral Routine Transplant Liver Expected: office visit (HCC) 11/27/2020 (clinic) Medication Therapy (Approxim ate), Process Control Tech Not Expires: Anticoagulant 09/14/2021 Cirrhosis Cryptogenic (HCC ) Screening Examination Prostate Cancer Screening Examination Skin Cancer Transplant Liver Outpatient Referral Routine Transplant Liver Expected: office visit (HCC) 11/27/2020 (clinic) Medication Therapy (Approxim ate), Process Control Tech Not Expires: Anticoagulant 09/14/2021 Cirrhosis Cryptogenic (HCC [...] Microscopic: Urine, Voided (11/27/2020 7:13 AM CDT) [facility] gist Method Time Signature Source Urine, 11/27/2020 DTL [...] Organization Address City/State/ZIP Code Phon e Number [facility] - [address] [facility] [place] [address] [facility] [place] [address] [facility] [address] [facility] (ABNORMAL) Tacrolimus, B (11/27/2020 7:11 AM CDT) [facility] Tacrolimus, B 1.3 (L) 5.0-15.0 11/27/2020 [facility] (Trough) 12:37 PM CDT ng/mL Comment: ----ADDITIONAL [...] its performa nce characteristics determined by [facility] in a manner consistent with CLIA requirements. [...] Organization Address City/State/ZIP Code Phon e Number [facility] [address] [place], [place] [address] [facility] [place] [address] Laboratory Medicine and Pathology [address] [place] PSA (Prostate-Specific Antigen) Screen (11/27/2020 7:11 AM CDT) [facility] Prostate-Specif 0.37 <=4.5 ng/mL 11/27/2020 DT ic Ag 8:26 AM CDT Comment: ----ADDITIONAL [...] M.D. LAB BLOOD ADD-ON Performing Organization Address City/[facility] Phon e Number [facility] - [address] [place], [place] [address] [facility] [place] [address] [facility] [address] [facility] Mononucleosis RNA/DNA (11/27/2020 7:11 AM CDT) Analysis Performed At Patho logist Time Signature [place] RNA/DNA Collected DEFAULT 11/27/2020 [facility] EDTA x 2 7:11 AM CDT [place] RNA/DNA Collected DEFAULT 11/27/2020 [facility] NaHep 7:11 AM CDT Specimen Anatomical Collection Method Collection Time Receive d Time (Source) Location / / Volume Laterality Blood (Blood, 11/27/2020 7:11 AM 11/28/19 21 7:11 Venous) CDT AM CDT Narrative [facility] - 11/27/2020 7:11 AM CDT Specimen Information: Specimen ID: [id number] Specimen Type: Blood Specimen Collection Start Date: ??7:11 AM Specimen Received Date: 11/27/2020 ??7:11 AM Specimen ID: [id number] Specimen Type: Blood Specimen Collection Start Date: ??7:11 AM Specimen Received Date: 11/27/2020 ??7:11 AM Specimen ID: [id number] Specimen Type: Blood Specimen Collection Start Date: ??7:11 AM Specimen Received Date: 11/27/2020 ??7:11 AM Willis Mcdermott M.D. LAB BLOOD NON ADD-ON Performing Organization Address City/[facility] Code Phon e Number [facility] - [address] [place], [place] [address] [facility] [place] [address] [facility] [address] [facility] Organ Liver TX (11/27/2020 7:11 AM CDT) Analysis Performed At Patho logist Time Signature Organ Liver [place] Collected DEFAULT 11/27/2020 [facility] 7:11 AM CDT Specimen Anatomical Collection Method Collection Time Receive d Time (Source) Location / / Volume Laterality Blood (Blood, 11/27/2020 7:11 AM 11/28/19 7:11 Venous) CDT AM CDT Willis Mcdermtot M.D. LAB BLOOD NON ADD-ON Performing Organization Address City/State/ZIP Code Phon e Number [facility] - [address] [place] [address] [place] [address] [facility] 200 [facility] (ABNORMAL) Uric Acid (11/27/2020 7:11 AM CDT) athologist Signature Uric Acid, S 8.6 (H) 3.7 - 8.0 11/27/2020 DTL mg/dL 8:26 AM CDT Specimen Anatomical Collection Method Collection Time Receive d Time (Source) Location / / Volume Laterality Blood (Blood, 11/27/2020 7:11 AM 11/28/19 7:27 Venous) CDT AM CDT Willis Mcdermott M.D. LAB BLOOD ADD-ON Performing Organization Address City/[facility]/ZIP Code Phon e Number [facility] - [address] [place] [phone] [address] (ABNORMAL) S-TSH (Thyroid-Stimulating Hormone - Sensitive) (11/27/2020 7:11 AM CDT) athologist Signature TSH, Sensitive 5.9 (H) 0.3 - 4.2 11/27/2020 DTL mIU/L 8:26 AM CDT Specimen Anatomical Collection Method Collection Time Receive d Time (Source) Location / / Volume Laterality Blood (Blood, 11/27/2020 7:11 AM 11/28/19 7:27 Venous) CDT AM CDT Willis Mcdermott M.D. LAB BLOOD ADD-ON Performing Organization Address City/[facility]/ZIP Code Phon e Number [facility] - [address] [place] [address] [place] [address] Bilirubin, Direct (11/27/2020 7:11 AM CDT) [...] Code Phon e Number [facility] - [address] Phosphorus Inorganic (11/27/2020 7:10 AM CDT) athologist Signature Phosphorus 4.1 2.5 - 4.5 11/27/2020 DTL (Inorganic), S mg/dL 8:24 AM CDT Specimen Anatomical Collection Method Collection Time Receive d Time (Source) Location / / Volume Laterality Blood (Blood, 11/27/2020 7:10 AM 11/28/19 7:27 Venous) CDT AM CDT Willis Mcdermott M.D. LAB BLOOD ADD-ON Performing Organization Address City/State/[facility] Code Phon e Number [facility] - [address] [place] [phone] [address] (ABNORMAL) CBC no call back, reflex T/S HGB <8 (11/27/2020 7:10 AM CDT) Patholo gist Method Time Signature Hemoglobin 8.9 (L) [...] Organization Address City/State/ZIP Code Phon e Number [facility] - [address] [place], [place] [address] [facility] [place] [address] [facility] [address] [facility] Prothrombin Time (PT) (11/27/2020 7:10 AM [...] M.D. LAB BLOOD ADD-ON Performing Organization Address City/[facility] Phon e Number [facility] - [address] [place], [place] [address] [facility] [place] [address] Laboratories-[address] (ABNORMAL) Magnesium (11/27/2020 7:10 AM CDT) athologist Signature Magnesium, S 2.9 (H) 1.7 - 2.3 11/27/2020 DTL mg/dL 8:24 AM CDT Specimen Anatomical Collection Method Collection Time Receive d Time (Source) Location / / Volume Laterality Blood (Blood, 11/27/2020 7:10 AM 11/28/19 21 7:27 Venous) CDT AM CDT Willis Mcdermott M.D. LAB BLOOD ADD-ON Performing Organization Address City/[facility] Code Phon e Number [facility] - [address] [place], [place] [address] [place] [address] [facility]-[address] 25-Hydroxyvitamin D2 and D3 (11/27/2020 7:10 AM CDT) athologist Signature 25-Hydroxy D2 <4.0 ng/mL 11/27/2020 [...] its performa nce characteristics determined by [facility] in a manner consistent with CLIA requirements. This test has not been cleared or approved by the U.S. Mer d and Drug Administration. Specimen Anatomical Collection Method Collection Time Receive d Time (Source) Location / / Volume Laterality Blood (Blood, 11/27/2020 7:10 AM 11/28/19 Venous) CDT 10:23 AM CDT Willis Mcdermott M.D. LAB BLOOD ADD-ON Performing Organization Address City/[facility] Phon e Number [facility] [address] [place], [place] [address] [facility] [place] [address] Laboratory Medicine and Pathology [address] [...] M.D. LAB BLOOD ADD-ON Performing Organization Address City/[facility]/ZIP Code Phon e Number [facility] - [address] [place], [place] [address] [facility] [place] [address] [facility] [address] (ABNORMAL) Hemoglobin A1c (11/27/2020 [...] Organization Address City/State/ZIP Code Phon e Number [facility] - [address] [place] [address] [facility] [place] [address] [facility] [address] [facility] (ABNORMAL) Lipid Panel (11/27/2020 7:10 AM CDT) P athologist Signature Cholesterol, 129 mg/dL 11/27/2020 DTL [...] Organization Address City/State/ZIP Code Phon e Number [facility] - [address] [place], [place] [address] [facility] [place] [address] [facility] [address] (ABNORMAL) Comprehensive Metabolic Panel (11/27/2020 7:10 AM [...] >=60 mL/min/BSA 11/27/2020 8:24 AM CDT DTL [place] Comment: ----ADDITIONAL INFORMATION---- Estimated GFR calculated using [...] Organization Address City/State/ZIP Code Phon e Number [facility] - [address] [place] [address] [facility] [place] [address] [facility] [address] documented in this encounter Visit Diagnoses Diagnosis Transplant Liver (HCC) - Primary Medication Therapy Detention Not Anticoa gulant Cirrhosis Cryptogenic (HCC) Screening Examination Prostate Cancer Screening Examination Skin Cancer Osteoporosis Without Pathological Fractu re Transplant Liver (HCC) Medication Therapy Detention Not Anticoa gulant Cirrhosis Cryptogenic (HCC) Screening Examination Prostate Cancer Screening Examination Skin Cancer Transplant Liver (HCC) Medication Therapy Process Control Tech Not Anticoa gulant Cirrhosis Cryptogenic (HCC) Screening Examination Prostate Cancer Screening Examination Skin Cancer documented in this encounter Additional Health Concerns Assessment Noted Time PHQ-9 Depression Total Score: 3 11/22/2019 7:34 AM CDT documented as of this encounter Care Teams Press Shop Supervisor Relationship Specialty Start Date End Date Elsewhere, Pcp PCP - General Family Medicine 07/29/17 [facility] - Laboratory Medicine 04/12/20 [place] [phone] documented as of this encounter
--- OUTSIDE RECORDS SUMMARY | 2022-05-17 18:48 | XMS_ITS | Encounter Summary ---
:1955 Author Organization [facility] Address [address] [place] [address] Care Team Providers Name Role Phone Elsewhere, Pcp Primary Care Provider Unavailable Reason for Referral MRI/CAT/PET Scan (Routine) - Closed Specialty Diagnoses / Procedures Referred By Contact Refer red To Contact Radiology Diagnoses Pretransplant Recipient Evaluation Exam Chronic Kidney Disease Stage 4 Glomerular Filtration Rate 15-29 (HCC) Eloy Chavez M.D. [facility] [place] Procedures CT Abdomen Pelvis without IV Contrast [address] [place], [place] [address] Referral ID Status Reason Start Date Expiration Date Visits Requ ested Visits Authorized [id number] Closed 09/15/2020 09/15/2021 1 1 utpatient (Routine) - Closed Specialty Diagnoses / Procedures Referred By Contact Refer red To Contact Diagnoses Pretransplant Recipient Evaluation Exam Chronic Kidney Disease Stage 4 Glomerular Filtration Rate 15-29 (HCC) Eloy Chavez M.D. [place] Procedures Echo Stress [address] [place] [address] Referral ID Status Reason Start Date Expiration Date Visits Requ ested Visits Authorized [id number] Closed 09/15/2020 09/15/2021 1 1 utpatient (Routine) - Closed Specialty Diagnoses / Procedures Referred By Contact Refer red To Contact Diagnoses Pretransplant Recipient Evaluation Exam Chronic Kidney Disease Stage 4 Glomerular Filtration Rate 15-29 (HCC) Eloy Chavez M.D. [facility] Procedures ECG 12 Lead [address] [place] [phone] Referral ID Status Reason Start Date Expiration Date Visits Requ ested Visits Authorized [id number] Closed 09/15/2020 09/15/2021 1 1 ransplant (Routine) - Closed Specialty Diagnoses / Procedures Referred By Contact Refer red To Contact Transplant Surgery / Diagnoses Pretransplant Recipient Evaluation Exam Chronic Kidney Disease Stage 4 Glomerular Filtration Rate 15-29 (HCC) Eloy Chavez M.D. [facility] Transplant [address] [place] [address] Referral ID Status Reason Start Date Expiration Date Visits Requ ested Visits Authorized [id number] Closed 09/15/2020 09/15/2021 1 1 ransplant (Routine) - Closed Specialty Diagnoses / Procedures Referred By Contact Refer red To Contact Transplant Surgery / Diagnoses Pretransplant Recipient Evaluation Exam Chronic Kidney Disease Stage 4 Glomerular Filtration Rate 15-29 (HCC) Eloy Chavez M.D. [place] [facility] [address] [place] [address] Referral ID Status Reason Start Date Expiration Date Visits Requ ested Visits Authorized [id number] Closed 09/15/2020 09/15/2021 1 1 ransplant (Routine) - Closed Specialty Diagnoses / Procedures Referred By Contact Refer red To Contact Transplant Surgery / Diagnoses Pretransplant Recipient Evaluation Exam Chronic Kidney Disease Stage 4 Glomerular Filtration Rate 15-29 (HCC) Eloy Chavez M.D. [place] [facility] Trans[facility] [address] [place] [phone] Referral ID Status Reason Start Date Expiration Date Visits Requ ested Visits Authorized [id number] Closed 09/15/2020 09/15/2021 1 1 hysical Therapy (Routine) - Closed Specialty Diagnoses / Procedures Referred By Contact Refer red To Contact Diagnoses Pretransplant Recipient Evaluation Exam Chronic Kidney Disease Stage 4 Glomerular Filtration Rate 15-29 (HCC) Eloy Chavez M.D. [facility] Procedures PT Evaluate and treat [address] [place] [phone] Referral ID Status Reason Start Date Expiration Date Visits Requ ested Visits Authorized [id number] Closed 09/15/2020 09/15/2021 99 99 Encounter Details Date Type Department Care Team Description 09/01/2020 Clinical Communication Curt Loera, Center for Patricia Azevedo R.N., Transplantation and C.C.T.C. 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 [address] [place] [phone] 05/23/2022 Clinical Admitting/Central Communication Scheduling 05/27/2022 Comprehensive Visit Orthopedic Surgery Markus Sams M.D., Ph.D. [address] [place] [phone] 05/29/2022 Office Visit Otorhinolaryngology Dex Matta APRN, C.N.P., M.S.N. [address] [place] [phone] 05/29/2022 Office Visit Otorhinolaryngology Nadeem Maradiaga, P.A.-C., M.S. [address] [place] [phone] 05/31/2022 Appointment Radiology Guilherme Matt MPAS, P.Murtaza.Marie., M.S. [address] [place] [phone] 06/05/2022 Appointment Laboratory Medicine Angélica Granger P.A.-C. [address] [place] [phone] 06/19/2022 Appointment Laboratory Medicine Angélica Granger P.A.-C. [address] [place] [phone] 07/03/2022 Appointment Laboratory Medicine Angélica Granger P.A.-C. [address] [place] [phone] 07/17/2022 Appointment Laboratory Medicine Angélica Granger P.A.-C. [address] [place] [phone] 07/31/2022 Appointment Laboratory Medicine Angélica Granger P.A.-C. [address] [place] [phone] 08/14/2022 Appointment Laboratory Medicine Angélica Granger P.A.-C. [address] [place] [phone] 08/28/2022 Appointment Laboratory Medicine Angélica Granger P.A.-C. [address] [place] [phone] Scheduled Referrals Name Type Priority Associated Diagnoses Order S [facility] Transplant Kidney Outpatient Referral Routine Pretransplant Ex pected: office visit Recipient Evaluation (clinic) Exam (Approximate), Chronic Kidney Disease Expir es: Stage 4 Glomerular 2 Filtration Rate 15-29 (HCC) Transplant Kidney Outpatient Referral Routine Pretransplant Ex pected: office visit Recipient Evaluation 06/07/2 021 (clinic) Exam (Approximate), Chronic Kidney Disease Expir es: Stage 4 Glomerular 2 Filtration Rate 15-29 (HCC) Transplant Kidney Outpatient Referral Routine Pretransplant Ex pected: office visit Recipient Evaluation 021 (clinic) Exam (Approximate), Chronic Kidney Disease Expir es: Stage 4 Glomerular 2 Filtration Rate 15-29 (HCC) documented as of this encounter Results ECHO STRESS 2D ONLY (11/28/2020 1:51 PM CDT) [facility] Method Time Signature Ejection Fraction 60 [...] Hg) For the complete report, see the [facility] Documents. Narrative 11/28/2020 2:53 PM CDT For the complete report, see the [facility] Documents. Final Impressions 1. Dobutamine stress echocardiogram [...] original. For the complete report, see the [facility] Documents. Final Impressions 1. Dobutamine stress [...] previous hepatic transplant. Splenomegaly. Mildly atrophi c [place] [facility]. Mild to moderate calcific atherosclerotic [...] previous hepatic transplant. Splenomegaly. Mildly atrophi c [place] [facility]. Mild to moderate calcific atherosclerotic [...] Signature Ventricular Rate 59 BPM MUSE ECG/Min UT Interval 164 ms MUSE QRSD Interval 96 ms MUSE QT Interval 426 ms MUSE QTC Interval 421 ms MUSE P [place] 78 degrees MUSE R [place] 7 degrees MUSE T Wave [place] 65 degrees MUSE Specimen Anatomical Collection Method [...] Panel 9, Urine (11/27/2020 7:51 AM CDT) Patholo gist Method Time Signature Alcohol Negative Cutoff: [...] test has been modified from the man jeremieacturer's instructions. Its performance characteristics were determi kaye by [facility] in a manner consistent with CLIA [...] [address] [place], [place] [address] [facility] [place] [address] Laboratory Medicine and Pathology [address] [place] Bacterial Culture, Aerobic + [employer] [facility] [employer], Urine (11/27/2020 7:13 AM CDT) Patholo gist Method Time Signature Urine Culture No growth 11/28/2020 DTL after 1 day 8:05 AM CDT of incubation. Specimen Anatomical Collection Method Collection Time Receive d Time (Source) Location / / Volume Laterality Urine (Urine, 11/27/2020 7:13 AM 11/28/19 8:22 Midstream) CDT AM CDT Comment: Specimen Source Site: Urine Eloy Chavez M.D. LAB MICROBIOLOGY - GENERAL O RDERABLES Performing Organization Address [facility] Phon e Number [facility] - [address] [place], [place] [address] [place] [address] Laboratories-[facility] 200 [facility] BK Virus PCR, Quant, Plasma (11/27/2020 7:11 AM CDT) [facility] Method Time Signature BK Virus PCR, None None 11/27/2020 [facility] Quant, P Detected Detected 4:49 PM CDT Comment: ----ADDITIONAL INFORMATION---- IU/mL = International Units per millilit er This test was developed and its performa nce characteristics determined by [facility] in a manner consistent with CLIA requirements. This test has not been cleared or approved by the U.S. Mer d and Drug Administration. Specimen Anatomical Collection Method Collection Time Receive d Time (Source) Location / / Volume Laterality Blood (Blood, 11/27/2020 7:11 AM 11/28/19 8:32 Venous) CDT AM CDT Eloy Chavez M.D. LAB MICROBIOLOGY - BLOOD ORD ERABLES Performing Organization Address [facility] Phon e Number [facility] - [address] [place], [place] [address] [place] [address] Laboratories-[address] EBV Ab Profile (11/27/2020 7:11 AM CDT) [facility] Method Time Signature EBV VCA IgM Ab, [...] - BLOOD ORD ERAKAJAL Performing Organization Address [facility] Phon e Number [facility] [address] [place] [address] 05 [facility] [place] [address] Laboratory Medicine and Pathology [address] [place] [address] Dr. MURILLO HIV-1/-2 Ag and Ab Screen, Plasma (11/27/2020 7:11 AM CDT) athologist Signature HIV-1/-2 Ag Negative Negative 11/27/2020 [facility] and Ab Screen, 1:19 PM CDT P [...] - BLOOD ORD TK Performing Organization Address City/[facility]/ZIP Code Phon e Number [address] [place] [address] [address] [place] [address] Laboratory Medicine and Pathology [address] [place] [address] Dr. M[place]ILLO HCV Ab Scrn w/Reflex to HCV PCR, Serum (11/27/2020 7:11 AM CDT) athologist Signature HCV Ab Screen, Negative Negative 11/27/2020 [facility] S 12:06 PM CDT Comment: Yofniy-pt-bwzjku ratio is <1.00 . Specimen Anatomical Collection Method Collection Time Receive d Time (Source) Location / / Volume Laterality Blood (Blood, 11/27/2020 7:11 AM 11/28/19 9:52 Venous) CDT AM CDT Eloy Chavez M.D. LAB MICROBIOLOGY - BLOOD ORD ERABLES Performing Organization Address City/[facility]/ZIP Code Phon e Number [facility] [address] [place] [address] SUPPORT CENTER [facility] [place] [address] Laboratory Medicine and Pathology [address] [place] [address] Dr. M[place]ILLO Hepatitis B Surface Antigen (11/27/2020 7:11 AM CDT) athologist Signature HBs Antigen, S Negative Negative 11/27/2020 [facility] 11:48 AM CDT Specimen Anatomical Collection Method Collection Time Receive d Time (Source) Location / / Volume Laterality Blood (Blood, 11/27/2020 7:11 AM 11/28/19 9:52 Venous) CDT AM CDT Eloy Chavez M.D. LAB MICROBIOLOGY - BLOOD ORD ERAKAJAL Performing Organization Address City/[facility]/ZIP Code Phon e Number [facility] [address] [place] [address] SUPPORT [facility] [place] [address] Laboratory Medicine and Pathology [address] [place] [address] Dr. M[place]O HBc Total Ab, Serum (11/27/2020 7:11 AM CDT) athologist [facility] HBc Total Ab, Negative Negative 11/27/2020 [facility] S 11:58 AM CDT Specimen Anatomical Collection Method Collection Time Receive d Time (Source) Location / / Volume Laterality Blood (Blood, 11/27/2020 7:11 AM 11/28/19 21 9:52 Venous) CDT AM CDT Eloy Chavez M.D. LAB MICROBIOLOGY - BLOOD ORD ERAKAJAL Performing Organization Address City/State/ZIP Code Phon e Number [facility] [address] [place] [address] SU[facility] CENTER [facility] [place] [address] Laboratory Medicine and Pathology [address] [place] [address] Dr. MURILLO HBs Antibody, Serum (11/27/2020 7:11 AM CDT) athologist Signature HBs Antibody, Positive 11/27/2020 [facility] S 11:58 AM CDT Comment: Patient is considered to be immune to in fection with HBV. ----REFERENCE VALUE---- Unvaccinated: Negative Vaccinated: Positive HBs Antibody, Quantitative, S 47.2 mIU/mL 11/27/2020 11:58 AM CDT [facility] Comment: ----REFERENCE VALUE---- Unvaccinated: <5.0 Vaccinated: >=12.0 Specimen Anatomical Collection Method Collection Time Receive d Time (Source) Location / / Volume Laterality Blood (Blood, 11/27/2020 7:11 AM 11/28/19 21 9:52 Venous) CDT AM CDT Eloy Chavez M.D. LAB MICROBIOLOGY - BLOOD ORD ERABLES Performing Organization Address City/[facility]/ZIP Code Phon e Number [facility] [address] [place], [place] [address] SUPPORT CENTER [facility] [place] [address] Laboratory Medicine and Pathology [address] [...] M.D. LAB BLOOD ADD-ON Performing Organization Address City/[facility] Code Phon e Number [facility] [address] [place], [place] [address] [place] [address] Laboratories-[facility] [address] [facility] Parathyroid Hormone (PTH) (11/27/2020 7:11 AM CDT) P athologist Signature Parathyroid 64 15 - 65 11/27/2020 DTL Hormone (PTH), S pg/mL 8:26 AM CDT Specimen Anatomical Collection Method Collection Time Receive d Time (Source) Location / / Volume Laterality Blood (Blood, 11/27/2020 7:11 AM 11/28/19 21 7:27 Venous) CDT AM CDT Eloy Chavez M.D. LAB BLOOD ADD-ON Performing Organization Address City/[facility]/ZIP Code Phon e Number [facility] - [address] [place], [place] [address] [facility] [place] [address] Laboratories-[address] (ABNORMAL) Electrolyte (Chem 4) Panel (11/27/2020 [...] M.D. LAB BLOOD ADD-ON Performing Organization Address City/[facility]/ZIP Code Phon e Number [facility] - [address] [place] [address] [facility] [place] [address] [facility]-[address] (ABNORMAL) Cytomegalovirus Ab, IgM and IgG [...] [address] [place] [address] [facility] [place] [address] Laboratory Medicine and Pathology [address] [place] QuantiFERON-Tb Gold Plus, Blood (11/27/2020 7:10 AM CDT) athologist Signature QuantiFERON-TB Negative Negative 11/28/2020 [facility] Gold Plus 1:37 PM CDT Result Comment: [...] Diagnosis of Tuberculosis in Adults and Children [Lewinsladyn DM et. al. Clin. Infect. Dis. 2017;64(2):111-115]. The reference range for the 'TB1 Ag migdalia s Nil Result' and 'TB2 Ag minus Nil Result' is an Inte rferon-gamma level <0.35 IU/mL. TB1 Ag minus Nil Result 0.03 IU/mL 11/28/2020 1:37 PM CDT [facility] TB2 Ag minus Nil Result 0.03 IU/mL 11/28/2020 1:37 PM CDT [facility] Mitogen minus Nil Result 5.71 IU/mL 11/28/2020 1:37 PM CDT [facility] Nil Result 0.28 IU/mL 11/28/2020 1:37 PM CDT [facility] Specimen Anatomical Collection Method Collection Time Receive d Time (Source) Location / / Volume Laterality Blood (Blood, 11/27/2020 7:10 AM 11/28/19 21 Venous) CDT 10:18 AM CDT Narrative [facility] [address] SUPPORT CLARAE R - 11/28/2020 1:37 PM CDT Specimen Information: Specimen ID: [id number] Specimen Type: Blood Specimen Collection Start Date: ??7:11 AM Specimen Received Date: 11/27/2020 10:18 AM Specimen ID: [id number] Specimen Type: Blood Specimen Collection Start Date: ??7:11 AM Specimen Received Date: 11/27/2020 10:18 AM Specimen ID: [id number] Specimen Type: Blood Specimen Collection Start Date: ??7:11 AM Specimen Received Date: 11/27/2020 10:18 AM Specimen ID: [id number] Specimen Type: Blood Specimen Collection Start Date: ??7:10 AM Specimen Received Date: 11/27/2020 10:18 AM Eloy Chavez M.D. LAB MICROBIOLOGY - BLOOD ORD ERABLES Performing Organization Address City/State/ZIP Code Phon e Number [facility] [address] [place], [place] [address] SU[address] CENTER [facility] [place] [address] Laboratory Medicine and Pathology [address] [place] HLA Class II SAB Antibody Screen (11/27/2020 7:10 AM CDT) [facility] Method Time Signature Class II SAB Negative Not Applicable 11/30/2020 [facility] Overall 9:49 AM CDT Result Class II SAB 0 11/30/2020 [facility] cPRA 9:49 AM CDT Comment: ----ADDITIONAL INFORMATION---- This PRA is a [facility] calculated PRA. PRA is based on the antigen frequency of the Tissue Typing patient a nd donor population. ??PRA reflects all antibodie s with a normalized value (MFI) above 300. SAB DRB1 Specificity NONE 11/30/2020 9:49 AM CDT [facility] SAB TRC304 Specificity NONE 11/30/2020 9:49 A M CDT [facility] SAB DQB1 Specificity NONE 11/30/2020 9:49 AM CDT [facility] SAB DPB1 Specificity NONE 11/30/2020 9:49 AM CDT [facility] Comment: ----ADDITIONAL INFORMATION---- Method: Luminex Flow Cytometry CLIA: [id number] ??CLIA Garment Turner: KRISTAL MIMS MD,PhD Specimen Anatomical Collection Method Collection Time Receive d Time (Source) Location / / Volume Laterality Blood (Blood, 11/27/2020 7:10 AM 11/28/19 8:32 Venous) CDT AM CDT Eloy Chavez M.D. LAB HLA ORDERABLES Performing Organization Address [facility] Phon e Number [facility] - [address] [place], [place] [address] [facility] [place] [address] [place] [address] Laboratories-[address] HLA Class I SAB Antibody Screen (11/27/2020 7:10 AM CDT) Patholo gist Method Time Signature Class I SAB Negative Not Applicable 11/30/2020 [facility] Overall 9:49 AM CDT Result Class I SAB 0 11/30/2020 [facility] cPRA 9:49 AM CDT Comment: ----ADDITIONAL INFORMATION---- This PRA is a [facility] ue Typing Laboratory calculated [...] ----ADDITIONAL INFORMATION---- Method: Luminex Flow Cytometry CLIA: [id number] ??CLIA Garment Turner: KRISTAL MIMS MD,PhD Specimen Anatomical Collection Method Collection Time Receive d Time (Source) Location / / Volume Laterality Blood (Blood, 11/27/2020 7:10 AM 11/28/19 8:32 Venous) CDT AM CDT Eloy Chavez M.D. LAB HLA ORDERABLES Performing Organization Address [facility] Phon e Number [facility] - [address] [place], [place] [address] [facility] [place] [address] [place] [address] Laboratories-[address] Hepatitis A IgM Ab, Serum (11/27/2020 [...] - BLOOD ORD ERABLES Performing Organization Address [facility]/ZIP Code Phon e Number [place] [id number] [place] [address] SUPPORT CENTER [facility] [place] [address] Laboratory Medicine and Pathology [address] [place] [address] Dr. MURILLO Hepatitis A IgG Ab, Serum (11/27/2020 7:10 AM CDT) athologist Signature Hepatitis A Positive 11/27/2020 [facility] IgG Ab, S 1:22 PM CDT Comment: [...] - BLOOD ORD ERAKAJAL Performing Organization Address [facility]/ZIP [facility] Phon e Number [address] [place] [address] [address] [facility] [place] [address] Laboratory Medicine and Pathology [address] [place] [address] Dr. MURILLO (ABNORMAL) Creatinine, Dialysis No Call, Serum (11/27/2020 7:10 AM CDT) athologist Signature Creatinine, S 4.00 (H) 0.74 - 11/27/2020 DTL 1.35 mg/dL 8:24 AM CDT Specimen Anatomical Collection Method Collection Time Receive d Time (Source) Location / / Volume Laterality Blood (Blood, 11/27/2020 7:10 AM 11/28/19 7:27 Venous) CDT AM CDT Eloy Chavez M.D. LAB BLOOD ADD-ON Performing Organization Address City/[facility]/ZIP [facility] Phon e Number [facility] - [address] [place], [place] [address] [facility] [place] [address] Laboratories-[facility] 200 [...] as of this encounter Care Teams Director Medicaid Relationship Specialty Start Date End Date Elsewhere, Pcp PCP - General Family Medicine 07/29/17 [facility] - Laboratory Medicine 04/12/[address] [address] documented as of this encounter
--- OUTSIDE RECORDS SUMMARY | 2022-05-17 18:48 | XMS_ITS | Encounter Summary ---
:1955 Author Organization [facility] Address [address] [place] [address] Care Team Providers Name Role Phone Elsewhere, Pcp Primary Care Provider Unavailable Encounter Details Date Type Department Care Team Description 08/30/2020 Hospital Encounter Department of [facility], [facility] And Laboratory Medicine Sada Hobson Chronic Kidney in [address] Disease Stage 4 (HCC) [place], [place] [address] [facility] [address] [place], [place] [phone] (Work) [phone] Social History Tobacco Use Types Packs/Day Years [...] Date Recorded Male 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 Medication Therapy Fdc Not Anticoagulant sodium chloride USE 4 ML VIA 0 08/30/2020 021 (NEBUSAL) 3 % nebulizer NEBULIZER TWICE solution DAILY tacrolimus (PROGRAF) Take 2 capsules (1 360 capsule 3 202007/16/2021 0.5 mg mg total) by mouth 2 capsuleIndications: (two) times a day. Transplant Liver (HCC), Medication Therapy Fdc Not Anticoagulant torsemide (DEMADEX) 10 Take 3 tablets (30 270 tablet 3 05/2202/22/2021 mg tablet mg total) by mouth daily. traZODone (DESYREL) 100 Take 1 tablet by 0 201610/12/2020 mg tablet mouth at bedtime as needed for sleep. Maintenance documented as of this encounter Plan of Treatment Upcoming Encounters Date Type Specialty Care Team Description 05/22/2022 Appointment Laboratory Medicine Angélica Granger P.A.-Arley. [address] [place] [phone] 05/23/2022 Clinical Admitting/Central Communication Scheduling 05/27/2022 Comprehensive Visit Orthopedic Surgery Markus Sams M.D., Ph.D. [address] [place] [phone] 05/29/2022 Office Visit Otorhinolaryngology Dex Matta APRN, C.N.P., M.S.N. [address] [place] [phone] 05/29/2022 Office Visit Otorhinolaryngology Nadeem Maradiaga P.A.-Arley., M.S. [address] [place] [phone] 05/31/2022 Appointment Radiology Guilherme Matt MPAS, Edmundo, M.S. [address] [place] [phone] 06/05/2022 Appointment Laboratory Medicine Angélica Granger P.A.-C. [address] [place] [phone] 06/19/2022 Appointment Laboratory Medicine Angélica Granger P.A.-C. [address] [place] [phone] 07/03/2022 Appointment Laboratory Medicine Angélica Granger P.A.-C. [address] [place] [phone] 07/17/2022 Appointment Laboratory Medicine Angélica Granger P.A.-C. [address] [place] [phone] 07/31/2022 Appointment Laboratory Medicine Angélica Granger P.A.-C. [address] [place] [phone] 08/14/2022 Appointment Laboratory Medicine Angélica Granger P.A.-C. [address] [place] [phone] 08/28/2022 Appointment Laboratory Medicine Angélica Granger P.A.-C. [address] [place] [phone] documented as of this encounter Procedures Procedure Name Priority Date/Time Associated Diagnosis Comme nts ALBUMIN, RANDOM, U Routine 08/30/2020 8:58 AM Hypertension And Results for this DISTRICT COURT JUDGE Chronic Kidney procedure are in Disease Stage 4 (HCC) the re sults section. URINALYSIS WITH Routine 08/30/2020 8:58 AM Hypertension And Re sults for this MICROSCOPIC DISTRICT COURT JUDGE Chronic Kidney procedure are in Disease Stage 4 (HCC) the re sults section. documented in this encounter Results (ABNORMAL) Albumin, Random, Urine (08/30/2020 8:[address] JUDGE) Patholo gist Method Time Signature Microalbumin 728.0 mg/L 08/30/2020 OWAT 12:[address] JUDGE Creatinine 67 mg/dL 08/30/2020 OWAT 11:[address] JUDGE Albumin/Creatinin 1087 (H) <17 mg/g 08/30/2020 OWAT e Ratio 12:[address] JUDGE Specimen Anatomical Collection Method Collection Time Receive d Time (Source) Location / / Volume Laterality Urine (Urine, 08/30/2020 8:58 AM 08/31/19 21 Voided) DISTRICT COURT JUDGE 10:[address] JUDGE Joce Bailey M.D. LAB URINE ORDERABLES Performing Organization Address City/State/ZIP Code Phon e Number [facility] [address] [place] [address] [place] [address] System in [place] [facility] (ABNORMAL) Urinalysis with Microscopic: Urine, Voided (08/30/2020 8:[address] JUDGE) P athologist Signature Source Midstream 08/30/2020 FB60 9:[address] JUDGE Clarity Clear Clear 08/30/2020 FB60 9:[address] JUDGE Color Yellow 08/30/2020 FB60 9:[address] JUDGE Comment: ----REFERENCE VALUE---- Colorless Yellow Bhakti Blood Small (A) Negative 08/30/2020 9:[address] JUDGE FB60 Nitrite Negative Negative 08/30/2020 9:[address] JUDGE FB60 Leukocyte Esterase Negative Negative 08/30/2020 9:16 AM CS T FB60 Protein >=300 (A) mg/dL 08/30/2020 9:[address] JUDGE FB60 Comment: ----REFERENCE VALUE---- Negative Trace Glucose Negative Negative mg/dL 08/30/2020 9:[address] JUDGE FB 60 Ketones, QI(U) Negative Negative mg/dL 08/30/2020 9:[address] FB60 Bilirubin Negative Negative 08/30/2020 9:[address] JUDGE FB60 pH 7.0 5.0 - 8.0 08/30/2020 9:[address] JUDGE FB60 Specific [place] 1.015 1.001 - 1.035 08/30/2020 9:[address] JUDGE FB60 Urobilinogen 0.2 0.2 - 1.0 mg/dL 08/30/2020 9:16 AM CS T FB60 White Blood Cells None Seen /hpf 08/30/2020 9:[address] JUDGE FB60 Comment: ----REFERENCE VALUE---- Males: 0-3 Females: 0-10 Unknown: 0-10 Red Blood Cells Occ-2 0 - 2 /hpf 08/30/2020 9:[address] JUDGE FB60 Specimen Anatomical Collection Method Collection Time Receive d Time (Source) Location / / Volume Laterality Urine (Urine, 08/30/2020 8:58 AM 08/31/19 9:02 Voided) DISTRICT COURT JUDGE AM DISTRICT COURT JUDGE Joce Bailey M.D. LAB URINE ORDERABLES Performing Organization Address City/State/ZIP Code Phon e Number [id number] [place] [address] LAB FB60 [place] [address] [address] documented in this encounter Visit Diagnoses Diagnosis Hypertension And Chronic Kidney Disease Stage 4 (HCC) documented in this encounter Additional Health Concerns Assessment Noted Time PHQ-9 Depression Total Score: 3 11/22/2019 7:34 AM CDT documented as of this encounter Care Teams Language Translator Relationship Specialty Start Date End Date Elsewhere, Pcp PCP - General Family Medicine 07/29/17 [facility] - Laboratory Medicine 04/12/20 [place] [address] documented as of this encounter
--- OUTSIDE RECORDS SUMMARY | 2022-05-17 18:48 | XMS_ITS | Encounter Summary ---
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 [address] [place] [phone] 05/23/2022 Clinical Admitting/Central Communication Scheduling 05/27/2022 Comprehensive Visit Orthopedic Surgery Markus Sams M.D., Ph.D. [address] [place] [phone] 05/29/2022 Office Visit Otorhinolaryngology Dex Matta, RAMONA, C.N.P., M.S.N. [address] [place] [phone] 05/29/2022 Office Visit Otorhinolaryngology Nadeem Maradiaga, PEdgar.Marie., M.S. [address] [place] [phone] 05/31/2022 Appointment Radiology Guilherme Matt, RASTA, Jennifer., M.S. [address] [place] [phone] 06/05/2022 Appointment Laboratory Medicine Angélica Granger P.A.-C. [address] [place] [phone] 06/19/2022 Appointment Laboratory Medicine Angélica Granger P.A.-C. [address] [place] [phone] 07/03/2022 Appointment Laboratory Medicine Angélica Granger P.A.-C. [address] [place] [phone] 07/17/2022 Appointment Laboratory Medicine Angélica Granger P.A.-C. [address] [place] [phone] 07/31/2022 Appointment Laboratory Medicine Angélica Granger P.A.-C. [address] [place] [phone] 08/14/2022 Appointment Laboratory Medicine Angélica Granger P.A.-C. [address] [place] [phone] 08/28/2022 Appointment Laboratory Medicine Angélica Granger P.A.-C. [address] [place] [phone] documented as of this encounter Visit Diagnoses Not on filedocumented in this encounter Additional Health Concerns Assessment Noted Time PHQ-9 Depression Total Score: 3 11/22/2019 7:34 AM CDT documented as of this encounter Care Teams Passenger Screener Relationship Specialty Start Date End Date Elsewhere, Pcp PCP - General Family Medicine 07/29/17 [facility] - Laboratory Medicine 04/12/[address] [address] documented as of this encounter
--- OUTSIDE RECORDS SUMMARY | 2022-05-17 18:48 | XMS_ITS | Encounter Summary ---
:1955 Author Organization [facility] Address [address] [place] [address] Care Team Providers Name Role Phone Elsewhere, Pcp Primary Care Provider Unavailable Reason for Visit Reason Comments COVID Inquiry Encounter Details Date Type Department Care Team Description 09/04/2020 Clinical Communication [facility]lica [facility], P.A.-C. 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 documented in this encounter Plan of Treatment Upcoming Encounters Date Type Specialty Care Team Description 05/22/2022 Appointment Laboratory Medicine Angélica Granger P.A.-C. [address] [place] [phone] 05/23/2022 Clinical Admitting/Central Communication Scheduling 05/27/2022 Comprehensive Visit Orthopedic Surgery Markus Sams M.D., Ph.D. [address] [place] [phone] 05/29/2022 Office Visit Otorhinolaryngology Dex Matta APRN, C.N.P., M.S.N. [address] [place] [phone] 05/29/2022 Office Visit Otorhinolaryngology Nadeem Maradiaga, Edmundo, M.S. [address] [place] [phone] 05/31/2022 Appointment Radiology Guilherme Matt, RASTA, Edmundo, M.S. [address] [place] [phone] 06/05/2022 Appointment Laboratory Medicine Angélica Granger P.A.-C. [address] [place] [phone] 06/19/2022 Appointment Laboratory Medicine Angélica Granger P.A.-C. [address] [place] [phone] 07/03/2022 Appointment Laboratory Medicine Angélica Granger P.A.-C. [address] [place] [phone] 07/17/2022 Appointment Laboratory Medicine Angélica Granger P.A.-C. [address] [place] [phone] 07/31/2022 Appointment Laboratory Medicine Angélica Granger P.A.-C. [address] [place] [phone] 08/14/2022 Appointment Laboratory Medicine Angélica Granger P.A.-C. [address] [place] [phone] 08/28/2022 Appointment Laboratory Medicine Angélica Granger P.A.-C. [address] [place] [phone] documented as of this encounter Visit Diagnoses Not on filedocumented in this encounter Additional Health Concerns Assessment Noted Time PHQ-9 Depression Total Score: 3 11/22/2019 7:34 AM CDT documented as of this encounter Care Teams Window Air Conditioner Installer Relationship Specialty Start Date End Date Elsewhere, Pcp PCP - General Family Medicine 07/29/17 [facility] - Laboratory Medicine 04/12/[address] [address] documented as of this encounter
--- OUTSIDE RECORDS SUMMARY | 2022-05-17 18:49 | XMS_ITS | Encounter Summary ---
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 [address] [place] [phone] 05/23/2022 Clinical Admitting/Central Communication Scheduling 05/27/2022 Comprehensive Visit Orthopedic Surgery Markus Sams M.D., Ph.D. [address] [place] [phone] 05/29/2022 Office Visit Otorhinolaryngology Dex Matta, RAMONA, C.N.P., M.S.N. [address] [place] [phone] 05/29/2022 Office Visit Otorhinolaryngology Nadeem Maradiaga, P.Murtaza.-Arley., M.S. [address] [place] [address] [phone] 05/31/2022 Appointment Radiology Guilherme Matt MPAS, PMaryanne., M.S. [address] [place] [phone] 06/05/2022 Appointment Laboratory Medicine Angélica Granger P.A.-C. [address] [place] [phone] 06/19/2022 Appointment Laboratory Medicine Angélica Granger P.A.-C. [address] [place] [phone] 07/03/2022 Appointment Laboratory Medicine Angélica Granger P.A.-C. [address] [place] [phone] 07/17/2022 Appointment Laboratory Medicine Angélica Granger P.A.-C. [address] [place] [phone] 07/31/2022 Appointment Laboratory Medicine Angélica Granger P.A.-C. [address] [place] [phone] 08/14/2022 Appointment Laboratory Medicine Angélica Granger P.A.-C. [address] [place] [phone] 08/28/2022 Appointment Laboratory Medicine Angélica Granger P.A.-C. [address] [place] [phone] documented as of this encounter Visit Diagnoses Not on filedocumented in this encounter Additional Health Concerns Assessment Noted Time PHQ-9 Depression Total Score: 3 11/22/2019 7:34 AM CDT documented as of this encounter Care Teams Estate Manager Relationship Specialty Start Date End Date Elsewhere, Pcp PCP - General Family Medicine 07/29/17 [facility] - Laboratory Medicine 04/12/[address] [address] documented as of this encounter
--- OUTSIDE RECORDS SUMMARY | 2022-05-17 18:49 | XMS_ITS | Encounter Summary ---
:1955 Author Organization [facility] Address [address] [place] [address] Care Team Providers Name Role Phone Elsewhere, Pcp Primary Care Provider Unavailable Reason for Referral Outpatient (Routine) - Closed Specialty Diagnoses / Procedures Referred By Contact Refer red To Contact Pulmonary Medicine Diagnoses Cough Unspecified Type Avril Bright M.D. [facility] [address] [place] [phone] Referral ID Status Reason Start Date Expiration Date Visits Requ ested Visits Authorized [id number] Closed 07/18/2020 07/18/2021 1 1 MACY TECHNICIAN INSTRUCTOR Encounter Details Date Type Department Care Team Description 07/18/2020 Orders Only Department of Avril Bright (Primary Dx) Otorhinolaryngology samm Cardenas M.D. [address] [place] [phone] Social History Tobacco Use Types Packs/Day Years [...] 12/15/2021 organizations such as tenriism groups, unions, [employer] or athletic groups, or school groups? 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 [address] [place] [phone] 05/29/2022 Office Visit Otorhinolaryngology Dxe Matta APRN, C.N.P., M.S.N. [address] [place] [address] [phone] 05/29/2022 Office Visit Otorhinolaryngology Nadeem Maradiaga P.A.-C., M.S. [address] [place] [address] [phone] 05/31/2022 Appointment Radiology Guilherme Matt MPAS, P.A.-C., M.S. [address] [place] [phone] 06/05/2022 Appointment Laboratory Medicine Angélica Granger P.A.-C. [address] [place] [phone] 06/19/2022 Appointment Laboratory Medicine Angélica Granger P.A.-C. [address] [place] [phone] 07/03/2022 Appointment Laboratory Medicine Angélica Granger P.A.-C. [address] [place] [phone] 07/17/2022 Appointment Laboratory Medicine Angélica Granger P.A.-C. [address] [place] [phone] 07/31/2022 Appointment Laboratory Medicine Angélica Granger P.A.-C. [address] [place] [phone] 08/14/2022 Appointment Laboratory Medicine Angélica Granger P.A.-C. [address] [place] [phone] 08/28/2022 Appointment Laboratory Medicine Angélica Granger P.A.-C. [address] [place] [phone] Scheduled Referrals Name Type Priority Associated Order Schedule Diagnoses Pulmonary Medicine Outpatient Referral Routine Cough 1 Occurrences - Cough consult starting (clinic) until 4 documented as of this encounter Results Pulmonary Function Tests (08/28/2020 11:28 AM PHARMACY TECHNICIAN INSTRUCTOR) P athologist Signature VC MAX PRE 3.89 L 08/28/2020 [facility] 2:03 PM PHARMACY TECHNICIAN INSTRUCTOR SUITE FVC 3.89 L 08/28/2020 [facility] 2:03 PM PHARMACY TECHNICIAN INSTRUCTOR SUITE FEV1 2.06 L 08/28/2020 [facility] 2:03 PM PHARMACY TECHNICIAN INSTRUCTOR SUITE FEV1/FVC 53.05 % 08/28/2020 [facility] 2:03 PM PHARMACY TECHNICIAN INSTRUCTOR SUITE YFX17-64% 1.01 L/s 08/28/2020 [facility] 2:03 PM PHARMACY TECHNICIAN INSTRUCTOR SUITE PEF PRE 7.96 L/s 08/28/2020 [facility] 2:03 PM PHARMACY TECHNICIAN INSTRUCTOR SUITE FET PRE 14.31 sec 08/28/2020 [facility] 2:03 PM PHARMACY TECHNICIAN INSTRUCTOR SUITE DLCO 15.90 ml/(min*mm 08/28/2020 [facility] Hg) 2:03 PM PHARMACY TECHNICIAN INSTRUCTOR SUITE DLCOc 19.30 ml/(min*mm 08/28/2020 [facility] Hg) 2:03 PM PHARMACY TECHNICIAN INSTRUCTOR SUITE HB 9.60 g(Hb)/dL 08/28/2020 [facility] 2:03 PM PHARMACY TECHNICIAN INSTRUCTOR SUITE VA 5.89 L 08/28/2020 [facility] 2:03 PM PHARMACY TECHNICIAN INSTRUCTOR SUITE X1ObzIclc 99.00 % 08/28/2020 [facility] 2:03 PM PHARMACY TECHNICIAN INSTRUCTOR SUITE PulseRest 71.00 1/min 08/28/2020 [facility] 2:03 PM PHARMACY TECHNICIAN INSTRUCTOR SUITE O3DbeWryx 98.00 % 08/28/2020 [facility] 2:03 PM PHARMACY TECHNICIAN INSTRUCTOR SUITE PulseExer 104.00 1/min 08/28/2020 [facility] 2:03 PM PHARMACY TECHNICIAN INSTRUCTOR SUITE EXER TIME 3.00 min 08/28/2020 [facility] 2:03 PM PHARMACY TECHNICIAN INSTRUCTOR SUITE STEP HEIGHT 9.00 Inch 08/28/2020 [facility] PRE 2:03 PM PHARMACY TECHNICIAN INSTRUCTOR SUITE TLC 8.48 L 08/28/2020 [facility] 2:03 PM PHARMACY TECHNICIAN INSTRUCTOR SUITE VC PRE 3.76 L 08/28/2020 [facility] 2:03 PM PHARMACY TECHNICIAN INSTRUCTOR SUITE FRCPLETH 5.49 L 08/28/2020 [facility] PROVBASE 2:03 PM PHARMACY TECHNICIAN INSTRUCTOR SUITE RV 4.72 L 08/28/2020 [facility] 2:03 PM PHARMACY TECHNICIAN INSTRUCTOR SUITE RV % TLC PRE 55.63 % 08/28/2020 [facility] 2:03 PM PHARMACY TECHNICIAN INSTRUCTOR SUITE TLC% 121 % % 08/28/2020 [facility] 2:03 PM PHARMACY TECHNICIAN INSTRUCTOR SUITE % PRED RV 188 % % 08/28/2020 [facility] 2:03 PM PHARMACY TECHNICIAN INSTRUCTOR SUITE % PRED VC MAX 91 % % 08/28/2020 [facility] 2:03 PM PHARMACY TECHNICIAN INSTRUCTOR SUITE FVC% 91 % % 08/28/2020 [facility] 2:03 PM PHARMACY TECHNICIAN INSTRUCTOR SUITE FEV1% 63 % % 08/28/2020 [facility] 2:03 PM PHARMACY TECHNICIAN INSTRUCTOR SUITE % PRED 69 % % 08/28/2020 [facility] FEV1/FVC 2:03 PM PHARMACY TECHNICIAN INSTRUCTOR SUITE % PRED FEF 39 % % 08/28/2020 [facility] 25-75% 2:03 PM PHARMACY TECHNICIAN INSTRUCTOR SUITE % PRED PEF 96 % % 08/28/2020 [facility] 2:03 PM PHARMACY TECHNICIAN INSTRUCTOR SUITE DLCO% 61 % % 08/28/2020 [facility] 2:03 PM PHARMACY TECHNICIAN INSTRUCTOR SUITE DLCOc% 74 % % 08/28/2020 [facility] 2:03 PM PHARMACY TECHNICIAN INSTRUCTOR SUITE PRED TLC 6.98 08/28/2020 [facility] 2:03 PM PHARMACY TECHNICIAN INSTRUCTOR SUITE PRED RV 2.51 08/28/2020 [facility] 2:03 PM PHARMACY TECHNICIAN INSTRUCTOR SUITE PRED VC MAX 4.30 08/28/2020 [facility] 2:03 PM PHARMACY TECHNICIAN INSTRUCTOR SUITE PRED FVC 4.30 08/28/2020 [facility] 2:03 PM PHARMACY TECHNICIAN INSTRUCTOR SUITE PRED FEV 1 3.29 08/28/2020 [facility] 2:03 PM PHARMACY TECHNICIAN INSTRUCTOR SUITE PRED FEV1/FVC 76.7 08/28/2020 [facility] 2:03 PM PHARMACY TECHNICIAN INSTRUCTOR SUITE PRED FEF 2.61 08/28/2020 [facility] 25-75% 2:03 PM PHARMACY TECHNICIAN INSTRUCTOR SUITE PRED PEF 8.3 08/28/2020 [facility] 2:03 PM PHARMACY TECHNICIAN INSTRUCTOR SUITE PRED DLCO 26.0 08/28/2020 [facility] 2:03 PM PHARMACY TECHNICIAN INSTRUCTOR SUITE PRED DLCOc 26.0 08/28/2020 [facility] 2:03 PM PHARMACY TECHNICIAN INSTRUCTOR SUITE Specimen (Source) Anatomical Collection Method Collection Time Re ceived Time Location / / Volume Laterality 08/28/2020 11:28 AM PHARMACY TECHNICIAN INSTRUCTOR Narrative This result has an attachment that is no t available. Avril Bright M.D. PFT ORDERABLES Performing Organization Address City/State/ZIP Code Phon e Number [facility] SUITE [facility] [place] SUITE NA Exhaled Nitric Oxide - Pulmonology (08/28/2020 11:26 AM PHARMACY TECHNICIAN INSTRUCTOR) [facility] gist Method Time Signature Exhaled NO 21 MMODAL Oral Parts per 39 MMODAL billion (ULN) ENOComment Patient MMODAL currently takes: Pulmicort, Atrovent, Singulair, and Prednisone Specimen (Source) Anatomical Location Collection Method / Collectio n Time Received Time / Laterality Volume Avril Bright M.D. PFT ORDERABLES Performing Organization Address City/[facility]/ZIP Code Phon e Number MMODAL MMODAL NA DX Chest AP or PA and Lateral 2 Views (08/28/2020 10:09 AM PHARMACY TECHNICIAN INSTRUCTOR) Anatomical Region Laterality Modality Chest, Thoracic RST LOS, Thoracic ARZ LOS, Thoracic N/A Digital Radiography FLA LOS Specimen (Source) Anatomical Collection Method Collection Time Re ceived Time Location / / Volume Laterality 08/28/2020 10:12 AM PHARMACY TECHNICIAN INSTRUCTOR Impressions 08/28/2020 10:17 AM PHARMACY TECHNICIAN INSTRUCTOR Since 11/22/2019, new infiltrates and consolidation with [...] distal left clavicle. Narrative 08/28/2020 10:17 AM PHARMACY TECHNICIAN INSTRUCTOR EXAM: ??DX CHEST AP OR PA AND [...] left clavicle. Avril HEREDIA DIAGNOSTIC IMAGING PROCE DURES (ABNORMAL) Basic Metabolic Panel (08/28/2020 9:51 AM PHARMACY TECHNICIAN INSTRUCTOR) Analysis Performed At Patho logist Time Signature Potassium, S 4.1 3.6 - 5.2 08/28/2020 [facility] mmol/L 11:00 AM PHARMACY TECHNICIAN INSTRUCTOR Sodium, S 137 135 - 145 08/28/2020 [facility] mmol/L 11:00 AM PHARMACY TECHNICIAN INSTRUCTOR Chloride, S 100 98 - 107 08/28/2020 [facility] mmol/L 11:00 AM PHARMACY TECHNICIAN INSTRUCTOR Bicarbonate, S 24 22 - 29 08/28/2020 [facility] mmol/L 11:03 AM PHARMACY TECHNICIAN INSTRUCTOR Anion Gap 13 7 - 15 08/28/2020 [facility] 11:03 AM PHARMACY TECHNICIAN INSTRUCTOR BUN (Blood Urea 57 (H) 8 - 24 08/28/2020 [facility] Nitrogen), S mg/dL 11:00 AM PHARMACY TECHNICIAN INSTRUCTOR Creatinine 3.67 (H) 0.74 - 08/28/2020 [facility] 1.35 mg/dL 11:00 AM PHARMACY TECHNICIAN INSTRUCTOR eGFR-Non 16 (L) >=60 08/28/2020 [facility] Black/ mL/min/BSA 11:00 AM PHARMACY TECHNICIAN INSTRUCTOR [place] Comment: ----ADDITIONAL INFORMATION---- Estimated GFR calculated using the 2009 CKD_EPI creatinine equation. eGFR-Black/ 19 (L) >=60 mL/min/BSA 2020 11:00 AM PHARMACY TECHNICIAN INSTRUCTOR DTL Comment: ----ADDITIONAL INFORMATION---- Estimated GFR calculated using the 2009 CKD_EPI creatinine equation. Calcium, Total, S 8.5 (L) 8.8 - 10.2 mg/dL 08/28/2020 11:0 0 AM PHARMACY TECHNICIAN INSTRUCTOR DTL Glucose, S 180 (H) 70 - 140 mg/dL 08/28/2020 11:00 AM PHARMACY TECHNICIAN INSTRUCTOR DTL Specimen Anatomical Collection Method Collection Time Receive d Time (Source) Location / / Volume Laterality Blood (Blood, 08/28/2020 9:51 AM 08/29/19 21 Venous) PHARMACY TECHNICIAN INSTRUCTOR 10:17 AM PHARMACY TECHNICIAN INSTRUCTOR Avril Bright M.D. LAB BLOOD ADD-ON Performing Organization Address City/State/ZIP Code Phon e Number [facility] - [address] [place], [place] [address] [facility] [place] [address] Laboratories-[facility] [address] [facility] (ABNORMAL) CBC with Differential, Blood (08/28/2020 9:51 AM PHARMACY TECHNICIAN INSTRUCTOR) [facility] gist Method Time Signature Hemoglobin 9.6 (L) 13.2 - 08/28/2020 DTL 16.6 g/dL 10:42 AM PHARMACY TECHNICIAN INSTRUCTOR Hematocrit 29.6 (L) 38.3 - 08/28/2020 DTL 48.6 % 10:42 AM PHARMACY TECHNICIAN INSTRUCTOR Erythrocytes 3.12 (L) 4.35 - 08/28/2020 DTL 5.65 10:42 AM PHARMACY TECHNICIAN INSTRUCTOR x10(12)/L MCV 94.9 78.2 - 08/28/2020 DTL 97.9 fL 10:42 AM PHARMACY TECHNICIAN INSTRUCTOR RBC Distrib Width 13.0 11.8 - 08/28/2020 DTL 14.5 % 10:42 AM PHARMACY TECHNICIAN INSTRUCTOR Platelet Count 176 135 - 317 08/28/2020 DTL x10(9)/L 10:42 AM PHARMACY TECHNICIAN INSTRUCTOR Leukocytes 3.0 (L) 3.4 - 9.6 08/28/2020 [facility] x10(9)/L 10:42 AM PHARMACY TECHNICIAN INSTRUCTOR Neutrophils 2.16 1.56 - 08/28/2020 DTL 6.45 10:42 AM PHARMACY TECHNICIAN INSTRUCTOR x10(9)/L Lymphocytes 0.39 (L) 0.95 - 08/28/2020 DTL 3.07 10:42 AM PHARMACY TECHNICIAN INSTRUCTOR x10(9)/L Monocytes 0.37 0.26 - 08/28/2020 DTL 0.81 10:42 AM PHARMACY TECHNICIAN INSTRUCTOR x10(9)/L Eosinophils 0.05 0.03 - 08/28/2020 DTL 0.48 10:42 AM PHARMACY TECHNICIAN INSTRUCTOR x10(9)/L Basophils <0.03 0.01 - 08/28/2020 DTL 0.08 10:42 AM PHARMACY TECHNICIAN INSTRUCTOR x10(9)/L Specimen Anatomical Collection Method Collection Time Receive d Time (Source) Location / / Volume Laterality Blood (Blood, 08/28/2020 9:51 AM 08/29/19 21 Venous) PHARMACY TECHNICIAN INSTRUCTOR 10:21 AM PHARMACY TECHNICIAN INSTRUCTOR Avril Bright M.D. LAB BLOOD ADD-ON Performing Organization Address City/State/ZIP Code Phon e Number [facility] - [address] [place], [place] [address] [facility] [place] [address] Laboratories-[facility] [address] documented in this encounter Visit Diagnoses Diagnosis Cough Unspecified Type - Primary Cough Unspecified Type documented in this encounter Additional Health Concerns Assessment Noted Time PHQ-9 Depression Total Score: 3 11/22/2019 7:34 AM CDT documented as of this encounter Care Teams Brick And Blocker Aid Labor Relationship Specialty Start Date End Date Elsewhere, Pcp PCP - General Family Medicine 07/29/17 [facility] - Laboratory Medicine 04/12/20 [place] [phone] documented as of this encounter
--- OUTSIDE RECORDS SUMMARY | 2022-05-17 18:49 | XMS_ITS | Encounter Summary ---
:1955 Author Organization [facility] Address [address] [place] [address] Care Team Providers Name Role Phone Elsewhere, Pcp Primary Care Provider Unavailable Encounter Details Date Type Department Care Team Description 08/28/2020 Diagnostic Division of Pulmonary KailaMasha whitman M.D. 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 [address] [place] [phone] 05/23/2022 Clinical Admitting/Central Communication Scheduling 05/27/2022 Comprehensive Visit Orthopedic Surgery Markus Sams M.D., Ph.D. [address] [place] [phone] 05/29/2022 Office Visit Otorhinolaryngology Dex Matta APRN, C.N.P., M.S.N. [address] [place] [phone] 05/29/2022 Office Visit Otorhinolaryngology Nadeem Maradiaga, P.Murtaza.-Arley., M.S. [address] [place] [address] [phone] 05/31/2022 Appointment Radiology Guilherme Matt MPAS, PEdgar.Marie., M.S. [address] [place] [phone] 06/05/2022 Appointment Laboratory Medicine Angélica Granger P.A.-C. [address] [place] [phone] 06/19/2022 Appointment Laboratory Medicine Angélica Granger P.A.-C. [address] [place] [phone] 07/03/2022 Appointment Laboratory Medicine Angélica Granger P.A.-C. [address] [place] [phone] 07/17/2022 Appointment Laboratory Medicine Angélica Granger P.A.-C. [address] [place] [phone] 07/31/2022 Appointment Laboratory Medicine Angélica Granger P.A.-C. [address] [place] [phone] 08/14/2022 Appointment Laboratory Medicine Angélica Granger P.A.-C. [address] [place] [address] [phone] 08/28/2022 Appointment Laboratory Medicine Angélica Granger P.A.-C. [address] [place] [phone] documented as of this encounter Procedures Procedure Name Priority Date/Time Associated Diagnosis Comme nts EXHALED NITRIC Routine 08/28/2020 11:26 AM Cough Result s for this OXIDE ENTERPRISE RESOURCE PLANNING CONSULTANT procedure are i n the results section. documented in this encounter Results Exhaled Nitric Oxide - Pulmonology (08/28/2020 11:26 AM ENTERPRISE RESOURCE PLANNING CONSULTANT) [facility] Method Time Signature Exhaled NO 21 MMODAL [...] documented as of this encounter Care Teams Life Scientists Relationship Specialty Start Date End Date Elsewhere, Pcp PCP - General Family Medicine 07/29/17 [facility] - Laboratory Medicine 04/12/20 [place] [phone] documented as of this encounter
--- OUTSIDE RECORDS SUMMARY | 2022-05-17 18:49 | XMS_ITS | Encounter Summary ---
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 [address] [place] [phone] 05/23/2022 Clinical Admitting/Central Communication Scheduling 05/27/2022 Comprehensive Visit Orthopedic Surgery Markus Sams M.D., Ph.D. [address] [place] [phone] 05/29/2022 Office Visit Otorhinolaryngology Dex Matta, PACKING MACHINE TENDER, C.N.P., M.S.N. [address] [place] [phone] 05/29/2022 Office Visit Otorhinolaryngology Nadeem Maradiaga, P.Murtaza.-C., M.S. [address] [place] [phone] 05/31/2022 Appointment Radiology Guilherme Matt, RASTA, PMaryanne., M.S. [address] [place] [phone] 06/05/2022 Appointment Laboratory Medicine Angélica Granger P.A.-C. [address] [place] [phone] 06/19/2022 Appointment Laboratory Medicine Angélica Granger P.A.-C. [address] [place] [address] [phone] 07/03/2022 Appointment Laboratory Medicine Angélica Granger P.A.-C. [address] [place] [phone] 07/17/2022 Appointment Laboratory Medicine Angélica Granger P.A.-C. [address] [place] [address] [phone] 07/31/2022 Appointment Laboratory Medicine Angélica Granger P.A.-C. [address] [place] [address] [phone] 08/14/2022 Appointment Laboratory Medicine Angélica Granger P.A.-C. [address] [place] [address] [phone] 08/28/2022 Appointment Laboratory Medicine Angélica Granger P.A.-C. [address] [place] [address] [phone] documented as of this encounter Procedures Procedure Name Priority Date/Time Associated Diagnosis Comme nts SARS CORONAVIRUS-2 Routine 08/25/2020 11:23 AM Contact With An d Results for this RNA, V PUBLIC AFFAIRS MANAGER (Suspected) Exposure procedu re are in To COVID-19 the results Preprocedural Lab section. Exam documented in this encounter Results SARS Coronavirus-2 RNA, V Asymptomatic (08/25/2020 11:23 AM PUBLIC AFFAIRS MANAGER) [facility] gist Method Time Signature SARS-CoV-2 Swab, 08/26/2020 [facility] Specimen Nasopharynx 3:20 AM PUBLIC AFFAIRS MANAGER Source SARS CoV-2 Undetected Undetected 08/26/2020 [facility] RNA, TMA 3:20 AM PUBLIC AFFAIRS MANAGER Comment: SARS-CoV-2 RNA absent. This result does not rule out COVID-19 in the patient, as the sensitivity of the test depends o n the timing of the specimen collection and the quality of the specim en. Result should be correlated with patient's history and clinical presentat ion. ----ADDITIONAL INFORMATION---- This molecular amplification test was pe rformed using the Aptima SARS-CoV-2 assay ([employer] on the Aunal[employer] tem under emergency use authorization (EUA) by the U.S. Food and Drug Administ ration. Fact sheets for this EUA assay can be fo und at the following links: For Healthcare Providers: https://www.Siri a.gov/media/983774/download For Patients: https://www.fda.gov/media/ 638271/download Specimen Anatomical Collection Method Collection Time Receive d Time (Source) Location / / Volume Laterality Varies 08/25/2020 11:23 08/25/2020 7:24 (Nasopharynx) AM PUBLIC AFFAIRS MANAGER PM PUBLIC AFFAIRS MANAGER Toro Pena M.D. LAB MICROBIOLOGY - GENERAL O RDERABLES Performing Organization Address City/State/ZIP Code Phon e Number [facility]- [address] [place] [address] [place] [address] documented in this encounter Visit Diagnoses Diagnosis Contact With And (Suspected) Exposure To COVID-19 Preprocedural Lab Exam documented in this encounter Additional Health Concerns Infection Onset Date Last Indicated Resolved Time COVID19 Pending 08/24/2020 08/25/2020 08/26/2020 3:21 AM PUBLIC AFFAIRS MANAGER Assessment Noted Time PHQ-9 Depression Total Score: 3 11/22/2019 7:34 AM CDT documented as of this encounter Care Teams Regional Manager Relationship Specialty Start Date End Date Elsewhere, Pcp PCP - General Family Medicine 07/29/17 [facility] - Laboratory Medicine 04/12/[address] [address] documented as of this encounter
--- OUTSIDE RECORDS SUMMARY | 2022-05-17 18:49 | XMS_ITS | Encounter Summary ---
:1955 Author Organization [facility] Address [address] [place] [address] Care Team Providers Name Role Phone Elsewhere, Pcp Primary Care Provider Unavailable Encounter Details Date Type Department Care Team Description 08/23/2020 Orders Only [facility] PCP TH Sa nikolay Forrester M.D. 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 [address] [place] [phone] 05/23/2022 Clinical Admitting/Central Communication Scheduling 05/27/2022 Comprehensive Visit Orthopedic Surgery Markus Sams M.D., Ph.D. [address] [place] [phone] 05/29/2022 Office Visit Otorhinolaryngology Dex Matta, RAMONA, C.N.P., M.S.N. [address] [place] [phone] 05/29/2022 Office Visit Otorhinolaryngology Nadeem Maradiaga, P.Murtaza.-C., M.S. [address] [place] [address] [phone] 05/31/2022 Appointment Radiology Guilherme Matt MPAS, Jennifer., M.S. [address] [place] [phone] 06/05/2022 Appointment Laboratory Medicine Angélica Granger P.A.-C. [address] [place] [phone] 06/19/2022 Appointment Laboratory Medicine Angélica Granger P.A.-C. [address] [place] [phone] 07/03/2022 Appointment Laboratory Medicine Angélica Granger P.A.-C. [address] [place] [phone] 07/17/2022 Appointment Laboratory Medicine Angélica Granger P.A.-C. [address] [place] [address] [phone] 07/31/2022 Appointment Laboratory Medicine Angélica Granger P.A.-C. [address] [place] [phone] 08/14/2022 Appointment Laboratory Medicine Angélica Granger P.A.-C. [address] [place] [address] [phone] 08/28/2022 Appointment Laboratory Medicine Angélica Granger P.A.-C. [address] [place] [address] [phone] documented as of this encounter Visit Diagnoses Not on filedocumented in this encounter Additional Health Concerns Assessment Noted Time PHQ-9 Depression Total Score: 3 11/22/2019 7:34 AM CDT documented as of this encounter Care Teams Advertising Dispatch Clerk Relationship Specialty Start Date End Date Elsewhere, Pcp PCP - General Family Medicine 07/29/17 [facility] - Laboratory Medicine 04/12/[address] [address] documented as of this encounter
--- OUTSIDE RECORDS SUMMARY | 2022-05-17 18:49 | XMS_ITS | Encounter Summary ---
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 Medication Therapy Long-Term Not Anticoagulant tacrolimus (PROGRAF) Take 2 capsules (1 360 capsule 3 202007/16/2021 0.5 mg mg total) by mouth 2 capsuleIndications: (two) times a day. Transplant Liver (HCC), Medication Therapy Long-Term Not Anticoagulant torsemide (DEMADEX) 10 Take 3 [...] Laboratory Medicine Angélica Granger P.A.-C. [address] [place] [phone] 05/23/2022 Clinical Admitting/Central Communication Scheduling 05/27/2022 Comprehensive Visit Orthopedic Surgery Markus Sams M.D., Ph.D. [address] [place] [phone] 05/29/2022 Office Visit Otorhinolaryngology Dex Matta APRN, C.N.P., M.S.N. [address] [place] [phone] 05/29/2022 Office Visit Otorhinolaryngology Nadeem Maradiaga P.A.Marie., M.S. [address] [place] [phone] 05/31/2022 Appointment Radiology Guilherme Matt MPAS, PEdgar.-C., M.S. [address] [place] [phone] 06/05/2022 Appointment Laboratory Medicine Angélica Granger P.A.-C. [address] [place] [phone] 06/19/2022 Appointment Laboratory Medicine Angélica Granger P.A.-C. [address] [place] [phone] 07/03/2022 Appointment Laboratory Medicine Angélica Granger P.A.-C. [address] [place] [phone] 07/17/2022 Appointment Laboratory Medicine Angélica Granger P.A.-C. [address] [place] [phone] 07/31/2022 Appointment Laboratory Medicine Angélica Granger P.A.-C. [address] [place] [phone] 08/14/2022 Appointment Laboratory Medicine Angélica Granger P.A.-C. [address] [place] [phone] 08/28/2022 Appointment Laboratory Medicine Angélica Granger P.A.-C. [address] [place] [phone] documented as of this encounter Procedures Procedure Name Priority Date/Time Associated Comments Diagnosis IMMUNOGLOBULINS (IGG, Routine 08/28/2020 4:11 Cough Res ults for this IGA, AND IGM), S PM PATIENT CONSUMER MARKETER procedure a re in the results section. documented in this encounter Results (ABNORMAL) Immunoglobulins (IgG, IgA, and IgM) (08/28/2020 4:11 PM PATIENT CONSUMER MARKETER) [facility] gist Method Time Signature Immunoglobulin A 32 (L) 61 - 356 08/29/2020 SDS (IgA), S mg/dL 7:42 AM PATIENT CONSUMER MARKETER Immunoglobulin M 56 37 - 286 08/29/2020 [facility] (IgM), S mg/dL 7:42 AM PATIENT CONSUMER MARKETER Immunoglobulin G 807 767 - 08/29/2020 [facility] (IgG), S 1590 7:42 AM PATIENT CONSUMER MARKETER mg/dL Specimen Anatomical Collection Method Collection Time Receive d Time (Source) Location / / Volume Laterality Blood (Blood, 08/28/2020 4:11 PM 08/30/19 21 6:06 Venous) PATIENT CONSUMER MARKETER AM PATIENT CONSUMER MARKETER Connie Barron LAB BLOOD ADD-ON Performing Organization Address City/State/ZIP Code Phon e Number [facility] [address] [place] [address] [place] [address] Laboratory Medicine and Pathology [address] [place] documented in this encounter Visit Diagnoses Diagnosis Cough Unspecified Type documented in this encounter Additional Health Concerns Assessment Noted Time PHQ-9 Depression Total Score: 3 11/22/2019 7:34 AM CDT documented as of this encounter Care Teams Veneer Stock Grader Relationship Specialty Start Date End Date Elsewhere, Pcp PCP - General Family Medicine 07/29/17 [facility] - Laboratory Medicine 04/12/[address] [phone] documented as of this encounter
--- OUTSIDE RECORDS SUMMARY | 2022-05-17 18:49 | XMS_ITS | Encounter Summary ---
:1955 Author Organization [facility] Address [address] [place] [address] Care Team Providers Name Role Phone Elsewhere, Pcp Primary Care Provider Unavailable Encounter Details Date Type Department Care Team Description 07/21/2020 Orders Only Department of Dotty Burrows Otorhinolaryngology in P.A.-C. 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 [address] [place] [phone] 05/23/2022 Clinical Admitting/Central Communication Scheduling 05/27/2022 Comprehensive Visit Orthopedic Surgery Markus Sams M.D., Ph.D. [address] [place] [phone] 05/29/2022 Office Visit Otorhinolaryngology Dex Matta, RAMONA, C.N.P., M.S.N. [address] [place] [phone] 05/29/2022 Office Visit Otorhinolaryngology Nadeem Maradiaga, P.Murtaza.-Arley., M.S. [address] [place] [address] [phone] 05/31/2022 Appointment Radiology Guilherme Matt MPAS, PMaryanne., M.S. [address] [place] [address] [phone] 06/05/2022 Appointment Laboratory Medicine Angélica Granger P.A.-C. [address] [place] [phone] 06/19/2022 Appointment Laboratory Medicine Angélica Granger P.A.-C. [address] [place] [phone] 07/03/2022 Appointment Laboratory Medicine Angélica Granger P.A.-C. [address] [place] [phone] 07/17/2022 Appointment Laboratory Medicine Angélica Granger P.A.-C. [address] [place] [phone] 07/31/2022 Appointment Laboratory Medicine Angélica Granger P.A.-C. [address] [place] [phone] 08/14/2022 Appointment Laboratory Medicine Angélica Granger P.A.-C. [address] [place] [phone] 08/28/2022 Appointment Laboratory Medicine Angélica Granger P.A.-C. [address] [place] [phone] documented as of this encounter Visit Diagnoses Not on filedocumented in this encounter Additional Health Concerns Assessment Noted Time PHQ-9 Depression Total Score: 3 11/22/2019 7:34 AM CDT documented as of this encounter Care Teams Civil Engineering Director Relationship Specialty Start Date End Date Elsewhere, Pcp PCP - General Family Medicine 07/29/17 [facility] - Laboratory Medicine 04/12/[address] [phone] documented as of this encounter
--- OUTSIDE RECORDS SUMMARY | 2022-05-17 18:49 | XMS_ITS | Encounter Summary ---
:1955 Author Organization [facility] Address [address] [place] [address] Care Team Providers Name Role Phone Elsewhere, Pcp Primary Care Provider Unavailable Reason for Visit Reason Comments Med Refill Encounter Details Date Type Department Care Team Description 07/20/2020 Refill Curt Anju [facility] for Bird, Edmond Azevedo, RDemetriusNDemetrius, Med Refill Transplantation and Clinical C.C .T.C. 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 [address] [place] [phone] 05/23/2022 Clinical Admitting/Central Communication Scheduling 05/27/2022 Comprehensive Visit Orthopedic Surgery Markus Sams M.D., Ph.D. [address] [place] [phone] 05/29/2022 Office Visit Otorhinolaryngology Dex Matta, RAMONA, C.N.P., M.S.N. [address] [place] [phone] 05/29/2022 Office Visit Otorhinolaryngology Nadeem Maradiaga, P.A.-C., M.S. [address] [place] [phone] 05/31/2022 Appointment Radiology Guilherme Matt MPAS, P.Murtaza.-Arley., M.S. [address] [place] [phone] 06/05/2022 Appointment Laboratory Medicine Angélica Granger P.A.-C. [address] [place] [phone] 06/19/2022 Appointment Laboratory Medicine Angélica Granger P.A.-C. [address] [place] [phone] 07/03/2022 Appointment Laboratory Medicine Angélica Granger P.A.-C. [address] [place] [phone] 07/17/2022 Appointment Laboratory Medicine Angélica Granger P.A.-C. [address] [place] [phone] 07/31/2022 Appointment Laboratory Medicine Angélica Granger P.A.-C. [address] [place] [phone] 08/14/2022 Appointment Laboratory Medicine Angélica Granger P.A.-C. [address] [place] [phone] 08/28/2022 Appointment Laboratory Medicine Angélica Granger P.A.-C. [address] [place] [phone] documented as of this encounter Visit Diagnoses Diagnosis Transplant Liver (HCC) Medication Therapy Quantometer Operator Not Anticoa gulant documented in this encounter Additional Health Concerns Assessment Noted Time PHQ-9 Depression Total Score: 3 11/22/2019 7:34 AM CDT documented as of this encounter Care Teams Vascular Technologist Relationship Specialty Start Date End Date Elsewhere, Pcp PCP - General Family Medicine 07/29/17 [facility] - Laboratory Medicine 04/12/[address] [address] documented as of this encounter
--- OUTSIDE RECORDS SUMMARY | 2022-05-17 18:49 | XMS_ITS | Encounter Summary ---
:1955 Author Organization [facility] Address [address] [place] [address] Care Team Providers Name Role Phone Elsewhere, Pcp Primary Care Provider Unavailable Encounter Details Date Type Department Care Team Description 08/28/2020 Hospital Encounter Department of Laboratory KailaMasha, Cough Medicine and Pathology, [place], [place] [address] [place] [address] [place] [phone] [place] [address] [phone] Social History Tobacco Use Types Packs/Day Years [...] at Date Recorded Male 05/16/2020 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 atorvastatin (LIPITOR) Take 1 tablet (10 90 [...] mg MOUTH TWICE DAILY tabletIndications: Transplant Liver ([facility]) NIFEdipine XL (PROCARDIA Take 3 tablets (90 270 tablet 3 07/05/2021 XL) 30 mg 24 hr tablet mg total) by mouth daily. predniSONE (DELTASONE) 5 Take 1 tablet (5 mg 90 tablet 3 06/29/2021 mg tabletIndications: total) by mouth Transplant Liver ([facility]), daily. Medication Therapy Associate Director Data & Analytics Not Anticoagulant tacrolimus (PROGRAF) 0.5 Take 2 [...] Appointment Laboratory Medicine Angélica Grnager P.A.-C. [address] [place] [phone] 05/23/2022 Clinical Admitting/Central Communication Scheduling 05/27/2022 Comprehensive Visit Orthopedic Surgery Markus Sams M.D., Ph.D. [address] [place] [phone] 05/29/2022 Office Visit Otorhinolaryngology Dex Matta APRN, C.N.P., M.S.N. [address] [place] [phone] 05/29/2022 Office Visit Otorhinolaryngology Nadeem Maradiaga, P.A.-C., M.S. [address] [place] [phone] 05/31/2022 Appointment Radiology Guilherme Matt MPAS, P.Murtaza.Marie., M.S. [address] [place] [phone] 06/05/2022 Appointment Laboratory Medicine Angélica Granger P.A.-C. [address] [place] [phone] 06/19/2022 Appointment Laboratory Medicine Angélica Granger P.A.-C. [address] [place] [phone] 07/03/2022 Appointment Laboratory Medicine Angélica Granger P.A.-C. [address] [place] [phone] 07/17/2022 Appointment Laboratory Medicine Angélica Granger P.A.-C. [address] [place] [phone] 07/31/2022 Appointment Laboratory Medicine Angélica Granger P.A.-C. [address] [place] [phone] 08/14/2022 Appointment Laboratory Medicine Angélica Granger P.A.-C. [address] [place] [phone] 08/28/2022 Appointment Laboratory Medicine Angélica Granger P.A.-C. [address] [place] [phone] documented as of this encounter Procedures Procedure Name Priority Date/Time Associated Comments Diagnosis IMMUNOFIXATION Routine 08/28/2020 9:51 AM Results for this KOHINOOR OPERATOR procedure are i n the results section. CBC WITH DIFFERENTIAL, Routine 08/28/2020 9:51 AM Cough Results for this B KOHINOOR OPERATOR procedure are i n the results section. ELECTROPHORESIS, Routine 08/28/2020 9:51 AM Resul ts for this PROTEIN, S KOHINOOR OPERATOR procedure are i n the results section. BASIC METABOLIC PANEL, Routine 08/28/2020 9:51 AM Cough Results for this S/P KOHINOOR OPERATOR procedure are i n the results section. documented in this encounter Results (ABNORMAL) Electrophoresis, Protein (08/28/2020 9:51 AM KOHINOOR OPERATOR) [facility] Method Time Signature Total Protein, 5.6 (L) [...] Volume Laterality Blood 08/28/2020 9:51 AM 8:11 KOHINOOR OPERATOR AM CDT Otoniel Davis M.D. LAB BLOOD ADD-ON Performing Organization Address City/State/ZIP Code Phon e Number [facility] [address] [place] [address] [address] [facility] [facility] [place] [address] Laboratory Medicine and Pathology [address] [place] [address] Dr. MURILLO Immunofixation (08/28/2020 9:51 AM KOHINOOR OPERATOR) [facility] Method Time Signature Immunofixation No monoclonal 12/28/2020 [facility] protein 5:56 PM CDT detected. Specimen Anatomical Collection Method Collection Time Receive d Time (Source) Location / / Volume Laterality Blood 08/28/2020 9:51 AM 8:11 KOHINOOR OPERATOR AM CDT Otoniel Davis M.D. LAB BLOOD NON ADD-ON Performing Organization Address City/State/ZIP Code Phon e Number [facility] [address] [place], [place] [address] [address] [facility] [place] [address] Laboratory Medicine and Pathology [address] [place] (ABNORMAL) Basic Metabolic Panel (08/28/2020 9:51 AM KOHINOOR OPERATOR) Analysis Performed At Patho logist Time Signature Potassium, S 4.1 3.6 - 5.2 08/28/2020 DTL mmol/L 11:00 AM KOHINOOR OPERATOR Sodium, S 137 135 - 145 08/28/2020 DTL mmol/L 11:00 AM KOHINOOR OPERATOR Chloride, S 100 98 - 107 08/28/2020 DTL mmol/L 11:00 AM KOHINOOR OPERATOR Bicarbonate, S 24 22 - 29 08/28/2020 DTL mmol/L 11:03 AM KOHINOOR OPERATOR Anion Gap 13 7 - 15 08/28/2020 DTL 11:03 AM KOHINOOR OPERATOR BUN (Blood Urea 57 (H) 8 - 24 08/28/2020 DTL Nitrogen), S mg/dL 11:00 AM KOHINOOR OPERATOR Creatinine 3.67 (H) 0.74 - 08/28/2020 DTL 1.35 mg/dL 11:00 AM KOHINOOR OPERATOR eGFR-Non 16 (L) >=60 08/28/2020 DTL Black/ mL/min/BSA 11:00 AM KOHINOOR OPERATOR [place] Comment: ----ADDITIONAL INFORMATION---- Estimated GFR calculated using the 2009 CKD_EPI creatinine equation. eGFR-Black/ 19 (L) >=60 mL/min/BSA 2020 11:00 AM KOHINOOR OPERATOR DTL Comment: ----ADDITIONAL INFORMATION---- Estimated GFR calculated using the 2009 CKD_EPI creatinine equation. Calcium, Total, S 8.5 (L) 8.8 - 10.2 mg/dL 08/28/2020 11:0 0 AM KOHINOOR OPERATOR DTL Glucose, S 180 (H) 70 - 140 mg/dL 08/28/2020 11:00 AM KOHINOOR OPERATOR DTL Specimen Anatomical Collection Method Collection Time Receive d Time (Source) Location / / Volume Laterality Blood (Blood, 08/28/2020 9:51 AM 08/29/19 21 Venous) KOHINOOR OPERATOR 10:17 AM KOHINOOR OPERATOR Avril Bright M.D. LAB BLOOD ADD-ON Performing Organization Address City/State/ZIP Code Phon e Number [facility] - [address] [place], [place] [address] [facility] [place] [address] [facility] [address] (ABNORMAL) CBC with Differential, Blood (08/28/2020 9:51 AM KOHINOOR OPERATOR) [facility] gist Method Time Signature Hemoglobin 9.6 (L) 13.2 - 08/28/2020 DTL 16.6 g/dL 10:42 AM KOHINOOR OPERATOR Hematocrit 29.6 (L) 38.3 - 08/28/2020 DTL 48.6 % 10:42 AM KOHINOOR OPERATOR Erythrocytes 3.12 (L) 4.35 - 08/28/2020 DTL 5.65 10:42 AM KOHINOOR OPERATOR x10(12)/L MCV 94.9 78.2 - 08/28/2020 DTL 97.9 fL 10:42 AM KOHINOOR OPERATOR RBC Distrib Width 13.0 11.8 - 08/28/2020 DTL 14.5 % 10:42 AM KOHINOOR OPERATOR Platelet Count 176 135 - 317 08/28/2020 DTL x10(9)/L 10:42 AM KOHINOOR OPERATOR Leukocytes 3.0 (L) 3.4 - 9.6 08/28/2020 DTL x10(9)/L 10:42 AM KOHINOOR OPERATOR Neutrophils 2.16 1.56 - 08/28/2020 DTL 6.45 10:42 AM KOHINOOR OPERATOR x10(9)/L Lymphocytes 0.39 (L) 0.95 - 08/28/2020 DTL 3.07 10:42 AM KOHINOOR OPERATOR x10(9)/L Monocytes 0.37 0.26 - 08/28/2020 DTL 0.81 10:42 AM KOHINOOR OPERATOR x10(9)/L Eosinophils 0.05 0.03 - 08/28/2020 DTL 0.48 10:42 AM KOHINOOR OPERATOR x10(9)/L Basophils <0.03 0.01 - 08/28/2020 DTL 0.08 10:42 AM KOHINOOR OPERATOR x10(9)/L Specimen Anatomical Collection Method Collection Time Receive d Time (Source) Location / / Volume Laterality Blood (Blood, 08/28/2020 9:51 AM 08/29/19 21 Venous) KOHINOOR OPERATOR 10:21 AM KOHINOOR OPERATOR Avril Bright M.D. LAB BLOOD ADD-ON Performing Organization Address City/State/ZIP Code Phon e Number [facility] - 200 [place], [place] [address] [facility] [place] [address] [facility] [address] documented in this encounter Visit Diagnoses Diagnosis Cough Unspecified Type documented in this encounter Additional Health Concerns Assessment Noted Time PHQ-9 Depression Total Score: 3 11/22/2019 7:34 AM CDT documented as of this encounter Care Teams Dock Coordinator Relationship Specialty Start Date End Date Elsewhere, Pcp PCP - General Family Medicine 07/29/[address] [facility] - Laboratory Medicine 04/12/20 [place] [phone] documented as of this encounter
--- OUTSIDE RECORDS SUMMARY | 2022-05-17 18:49 | XMS_ITS | Encounter Summary ---
:1955 Author Organization [facility] Address [address] [place] [address] Care Team Providers Name Role Phone Elsewhere, Pcp Primary Care Provider Unavailable Encounter Details Date Type Department Care Team Description 08/28/2020 Hospital Encounter Department of Radiology, Masha Bright Cough 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 Medication Therapy Hat Ironer Not Anticoagulant tacrolimus (PROGRAF) Take 2 capsules [...] Laboratory Medicine Angélica Granger P.A.-C. [address] [place] [phone] 05/23/2022 Clinical Admitting/Central Communication Scheduling 05/27/2022 Comprehensive Visit Orthopedic Surgery Markus Sams M.D., Ph.D. [address] [place] [phone] 05/29/2022 Office Visit Otorhinolaryngology Dex Matta, RAMONA, C.N.P., M.S.N. [address] [place] [phone] 05/29/2022 Office Visit Otorhinolaryngology Nadeem Maradiaga, P.Murtaza.-C., M.S. [address] [place] [phone] 05/31/2022 Appointment Radiology Guilherme Matt, RASTA, P.Murtaza.Marie., M.S. [address] [place] [phone] 06/05/2022 Appointment Laboratory Medicine Angélica Granger P.A.-C. [address] [place] [phone] 06/19/2022 Appointment Laboratory Medicine Angélica Granger P.A.-C. [address] [place] [phone] 07/03/2022 Appointment Laboratory Medicine Angélica Granger P.A.-C. [address] [place] [phone] 07/17/2022 Appointment Laboratory Medicine Angélica Granger P.A.-C. [address] [place] [phone] 07/31/2022 Appointment Laboratory Medicine Angélica Granger P.A.-C. [address] [place] [address] [phone] 08/14/2022 Appointment Laboratory Medicine Angélica Granger P.A.-C. [address] [place] [phone] 08/28/2022 Appointment Laboratory Medicine Angélica Granger P.A.-C. [address] [place] [phone] documented as of this encounter Procedures Procedure Name Priority Date/Time Associated Comments Diagnosis DX CHEST AP OR PA RAD - Routine 08/28/2020 10:09 Cough Resul ts for this AND LATERAL 2 (most inpatients AM EDGER TECHNICIAN procedure are in VIEWS and all the results outpatients) section. documented in this encounter Results DX Chest AP or PA and Lateral 2 Views (08/28/2020 10:09 AM EDGER TECHNICIAN) Anatomical Region Laterality Modality Chest, Thoracic RST LOS, Thoracic ARZ LOS, Thoracic N/A Digital Radiography FLA LOS Specimen (Source) Anatomical Collection Method Collection Time Re ceived Time Location / / Volume Laterality 08/28/2020 10:12 AM EDGER TECHNICIAN Impressions 08/28/2020 10:17 AM EDGER TECHNICIAN Since 11/22/2019, new infiltrates and consolidation with [...] distal left clavicle. Narrative 08/28/2020 10:17 AM EDGER TECHNICIAN EXAM: ??DX CHEST AP OR PA AND [...] documented as of this encounter Care Teams Cut Out Operator Relationship Specialty Start Date End Date Elsewhere, Pcp PCP - General Family Medicine 07/29/17 [facility] - Laboratory Medicine 04/12/20 [place] [phone] documented as of this encounter
--- OUTSIDE RECORDS SUMMARY | 2022-05-17 18:49 | XMS_ITS | Encounter Summary ---
:1955 Author Organization [facility] Address [address] [place] [address] Care Team Providers Name Role Phone Elsewhere, Pcp Primary Care Provider Unavailable Reason for Referral Outpatient (Routine) - Closed Specialty Diagnoses / Procedures Referred By Contact Refer red To Contact Otorhinolaryngology Leanne Alex [place] M.D. [address] [place] [address] Referral ID Status Reason Start Date Expiration Date Visits Requ ested Visits Authorized [id number] Closed 08/29/2020 08/29/2021 1 1 Scheduling Instructions COVID needed GER INTRANET MRI/CAT/PET Scan (Routine) - Closed Specialty Diagnoses / Procedures Referred By Contact Refer red To Contact Radiology Diagnoses Rhinosinusitis Chronic Leanne Alex M.D. [facility] Procedures CT Sinuses without IV Contrast [address] [place] [address] Referral ID Status Reason Start Date Expiration Date Visits Requ ested Visits Authorized [id number] Closed 08/29/2020 08/29/2021 1 1 GER INTRANET Encounter Details Date Type Department Care Team Description 08/29/2020 Orders Only Department of Isai Rhinosinusitis Otorhinolaryngology in [place] (Primary Dx) Jody Satnamaria M.D. 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 [address] [place] [phone] 05/23/2022 Clinical Admitting/Central Communication Scheduling 05/27/2022 Comprehensive Visit Orthopedic Surgery Markus Sams M.D., Ph.D. [address] [place] [phone] 05/29/2022 Office Visit Otorhinolaryngology Dex Matta APRN, C.N.P., M.S.N. [address] [place] [phone] 05/29/2022 Office Visit Otorhinolaryngology Nadeem Maradiaga P.A.-C., M.S. [address] [place] [phone] 05/31/2022 Appointment Radiology Guilherme Matt MPAS, Jennifer., M.S. [address] [place] [phone] 06/05/2022 Appointment Laboratory Medicine Angélica Granger P.A.-C. [address] [place] [phone] 06/19/2022 Appointment Laboratory Medicine Angélica Granger P.A.-C. [address] [place] [phone] 07/03/2022 Appointment Laboratory Medicine Angélica Granger P.A.-C. [address] [place] [phone] 07/17/2022 Appointment Laboratory Medicine Angélica Granger P.A.-C. [address] [place] [phone] 07/31/2022 Appointment Laboratory Medicine Angélica Granger P.A.-C. [address] [place] [address] 08/14/2022 Appointment Laboratory Medicine Angélica Granger P.A.-C. [address] [place] [address] 08/28/2022 Appointment Laboratory Medicine Angélica Granger P.A.-C. [address] [place] [address] Scheduled Orders Name Type Priority Associated Diagnoses [...] documented as of this encounter Care Teams Clinic Charge Nurse Relationship Specialty Start Date End Date Elsewhere, Pcp PCP - General Family Medicine 07/29/17 [facility] - Laboratory Medicine 04/12/[address] [address] documented as of this encounter
--- OUTSIDE RECORDS SUMMARY | 2022-05-17 18:49 | XMS_ITS | Encounter Summary ---
:[address] 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 Medication Therapy Nursing Home Not Anticoagulant tacrolimus (PROGRAF) Take 2 capsules (1 360 capsule 3 202007/16/2021 0.5 mg mg total) by mouth 2 capsuleIndications: (two) times a day. Transplant Liver (HCC), Medication Therapy Nursing Home Not Anticoagulant torsemide (DEMADEX) 10 Take 3 [...] Laboratory Medicine Angélica Granger P.A.-C. [address] [place] [phone] 05/23/2022 Clinical Admitting/Central Communication Scheduling 05/27/2022 Comprehensive Visit Orthopedic Surgery Markus Sams M.D., Ph.D. [address] [place] [phone] 05/29/2022 Office Visit Otorhinolaryngology Dex Matta APRN, C.N.P., M.S.N. [address] [place] [phone] 05/29/2022 Office Visit Otorhinolaryngology Nadeem Maradiaga P.A.Marie., M.S. [address] [place] [phone] 05/31/2022 Appointment Radiology Guilherme Matt MPAS, PEdgar.-C., M.S. [address] [place] [phone] 06/05/2022 Appointment Laboratory Medicine Angélica Granger P.A.-C. [address] [place] [phone] 06/19/2022 Appointment Laboratory Medicine Angélica Granger P.A.-C. [address] [place] [phone] 07/03/2022 Appointment Laboratory Medicine Angélica Granger P.A.-C. [address] [place] [phone] 07/17/2022 Appointment Laboratory Medicine Angélica Granger P.A.-C. [address] [place] [phone] 07/31/2022 Appointment Laboratory Medicine Angélica Granger P.A.-C. [address] [place] [phone] 08/14/2022 Appointment Laboratory Medicine Angélica Granger P.A.-C. [address] [place] [phone] 08/28/2022 Appointment Laboratory Medicine Angélica Granger P.A.-C. [address] [place] [phone] documented as of this encounter Procedures Procedure Name Priority Date/Time Associated Comments Diagnosis BACTERIAL CULTURE, Routine 08/28/2020 3:59 PM Cough Res ults for this AEROBIC + SUSC, RESP SANDSTONE INSPECTOR REPAIRER procedu re are in the results section. MYCOBACTERIAL CULTURE, Routine 08/28/2020 3:59 PM Cough Results for this V SANDSTONE INSPECTOR REPAIRER procedure are i n the results section. FUNGAL SMEAR Routine 08/28/2020 3:59 PM Cough Results f or this SANDSTONE INSPECTOR REPAIRER procedure are i n the results section. ACID FAST SMEAR FOR Routine 08/28/2020 3:59 PM Cough Re sults for this MYCOBACTERIUM SANDSTONE INSPECTOR REPAIRER procedure are in the results section. GRAM STAIN Routine 08/28/2020 3:59 PM Cough Results f or this SANDSTONE INSPECTOR REPAIRER procedure are i n the results section. FUNGAL CULTURE, Routine 08/28/2020 3:59 PM Cough Result s for this ROUTINE SANDSTONE INSPECTOR REPAIRER procedure are i n the results section. documented in this encounter Results Mycobacterial Culture (08/28/2020 3:59 PM SANDSTONE INSPECTOR REPAIRER) [place] Method Time Signature Mycobacterial No growth 10/10/2020 DTL Culture after 42 1:01 AM CDT days of incubation . Specimen Anatomical Collection Method Collection Time Receive d Time (Source) Location / / Volume Laterality Sputum (Sputum) 08/28/2020 3:59 PM 2020 5:01 SANDSTONE INSPECTOR REPAIRER PM SANDSTONE INSPECTOR REPAIRER Comment: Specimen Source Site: Sputum Connie CottrellB.S. LAB MICROBIOLOGY - GENERAL ORDERABLES Performing Organization Address City/State/[facility] Phon e Number [facility] - [address] [place], [place] [address] [place] [address] [place] [address] [facility] [address] Acid Fast Smear For Mycobacterium (08/28/2020 3:59 PM SANDSTONE INSPECTOR REPAIRER) [place] Method Time Signature Acid Fast Smear Negative. 08/28/2020 DTL For Mycobacterium 10:56 PM SANDSTONE INSPECTOR REPAIRER Specimen Anatomical Collection Method Collection Time Receive d Time (Source) Location / / Volume Laterality Sputum (Sputum) 08/28/2020 3:59 PM 2020 5:01 SANDSTONE INSPECTOR REPAIRER PM SANDSTONE INSPECTOR REPAIRER Comment: Specimen Source Site: Sputum Connie CottrellB.S. LAB MICROBIOLOGY - GENERAL ORDERABLES Performing Organization Address City/State/ZIP Code Phon e Number [facility] - [address] [place], [place] [address] [facility] [place] [address] [facility] [address] (ABNORMAL) Fungal Culture, Routine (08/28/2020 3:59 PM SANDSTONE INSPECTOR REPAIRER) Patholo gist Method Time Signature Fungal PENICILLIUM sp 09/21/2020 DTL Culture, Few 12:32 PM CDT Routine (A) Comment: Susceptibility testing is not routinely recommended for this organism. Clinical correlation requ ired. Specimen Anatomical Collection Method Collection Time Receive d Time (Source) Location / / Volume Laterality Sputum (Sputum) 08/28/2020 3:59 PM 2020 5:01 SANDSTONE INSPECTOR REPAIRER PM SANDSTONE INSPECTOR REPAIRER Comment: Specimen Source Site: Sputum Connie CottrellB.S. LAB MICROBIOLOGY - GENERAL ORDERABLES Performing Organization Address City/[facility] Phon e Number [facility] - [address] Fungal Smear (08/28/2020 3:59 PM SANDSTONE INSPECTOR REPAIRER) athologist Signature Fungal Smear Negative. 08/28/2020 DTL 10:39 PM SANDSTONE INSPECTOR REPAIRER Specimen Anatomical Collection Method Collection Time Receive d Time (Source) Location / / Volume Laterality Sputum (Sputum) 08/28/2020 3:59 PM 2020 5:01 SANDSTONE INSPECTOR REPAIRER PM SANDSTONE INSPECTOR REPAIRER Comment: Specimen Source Site: Sputum Connie CottrellB.S. LAB MICROBIOLOGY - GENERAL ORDERABLES Performing Organization Address City/[facility] Phon e Number [facility] - [address] (ABNORMAL) Bacterial Culture, Aerobic + Susc, Resp (08/28/2020 3:59 PM SANDSTONE INSPECTOR REPAIRER) Patholo gist Method Time Signature Bacterial With usual 08/31/2020 DTL Culture, efrem (A) 12:07 PM SANDSTONE INSPECTOR REPAIRER Aerobic, Resp Bacterial SERRATIA MARCESCENS 08/31/2020 DTL Culture, 2+ 12:07 PM SANDSTONE INSPECTOR REPAIRER Aerobic, Resp (A) Comment: This organism may [...] Sputum (Sputum) 08/28/2020 3:59 PM 2020 5:01 SANDSTONE INSPECTOR REPAIRER PM SANDSTONE INSPECTOR REPAIRER Comment: Specimen Source Site: Sputum Organism Antibiotic [...] MICROBIOLOGY - GENERAL ORDERABLES Performing Organization Address City/[facility] Phon e Number [facility] - [id number] [place] [address] Gram Stain (08/28/2020 3:59 PM SANDSTONE INSPECTOR REPAIRER) [facility] Method Time Signature Gram Stain Mixed efrem. 08/28/2020 DTL White blood cells, Many. 6:24 PM SANDSTONE INSPECTOR REPAIRER Epithelial cells, Moderate. Specimen Anatomical Collection Method Collection Time Receive d Time (Source) Location / / Volume Laterality Sputum (Sputum) 08/28/2020 3:59 PM 2020 5:01 SANDSTONE INSPECTOR REPAIRER PM SANDSTONE INSPECTOR REPAIRER Comment: Specimen Source Site: Sputum Connie CottrellBDemetriusSDemetrius LAB MICROBIOLOGY - GENERAL ORDERABLES Performing Organization Address [facility] Phon e Number [facility] - [phone] [place] [address] documented in this encounter Visit Diagnoses Diagnosis Cough Unspecified Type documented in this encounter Additional Health Concerns Assessment Noted Time PHQ-9 Depression Total Score: 3 11/22/2019 7:34 AM CDT documented as of this encounter Care Teams Social Work Program Coordinator Relationship Specialty Start Date End Date Elsewhere, Pcp PCP - General Family Medicine 07/29/17 [facility] - Laboratory Medicine 04/12/20 [place] [phone] documented as of this encounter
--- OUTSIDE RECORDS SUMMARY | 2022-05-17 18:49 | XMS_ITS | Encounter Summary ---
:1955 Author Organization [facility] Address [address] [place] [address] Care Team Providers Name Role Phone Elsewhere, Pcp Primary Care Provider Unavailable Reason for Referral Specialty Diagnoses / Procedures Referred By Contact Refer red To Contact Connie Aaron M.B.B.S. [address] [phone] Referral ID Status Reason Start Date Expiration Date Visits Requ ested Visits Authorized OL BUS TECHNICIAN MRI/CAT/PET Scan (Routine) - Closed Specialty Diagnoses / Procedures Referred By Contact Refer red To Contact Radiology Diagnoses Pneumonia Connie Aaron, [facility] Procedures CT Chest without IV Contrast M.B.B.S. [address] [place] [phone] Referral ID Status Reason Start Date Expiration Date Visits Requ ested Visits Authorized [id number] Closed 08/28/2020 08/28/2021 1 1 OL BUS TECHNICIAN Reason for Visit Outpatient (Routine) - Closed Specialty Diagnoses / Procedures Referred By Contact Refer red To Contact Pulmonary Medicine Diagnoses Cough Unspecified Type Avril Bright M.D. [address] [phone] Referral ID Status Reason Start Date Expiration Date Visits Requ ested Visits Authorized [id number] Closed 07/18/2020 07/18/2021 1 1 Encounter Details Date Type Department Care Team Description 08/28/2020 Comprehensive Visit Division of Pulmonary Genesis Aaron, Cough; Medicine in [facility].S. 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 documented as of this encounter Last Filed Vital Signs Vital Sign Reading Time Taken Comments Blood Pressure 149/82 08/28/2020 2:52 PM SCHOOL BUS TECHNICIAN Pulse 61 08/28/2020 2:52 PM SCHOOL BUS TECHNICIAN Temperature 36.3 ??C (97.3 ??F) 08/28/2020 2:45 PM SCHOOL BUS TECHNICIAN Respiratory Rate - - Oxygen Saturation 98% 08/28/2020 2:45 PM SCHOOL BUS TECHNICIAN Inhaled Oxygen Concentration - - Weight 83.6 kg (184 lb 4.9 oz) 08/28/2020 2:45 PM SCHOOL BUS TECHNICIAN Height 176 cm (5' 9.29) 08/28/2020 2:45 PM SCHOOL BUS TECHNICIAN Body Mass Index 26.99 08/28/2020 2:45 PM SCHOOL BUS TECHNICIAN documented in this encounter H&P Notes Connie Aaron M.B.B.SDemetrius - 08/28/2020 3:00 PM CST SUBJECTIVE Referring Provider: Avril Bright M.D. [address] [place] [phone] CHIEF COMPLAINT / REASON FOR VISIT Bruce [...] November 2019 with progression in December. Underwent [id number]/24 significant for bilateral scattered mucopurulent secretions with [...] orthotopic liver transplant in 1998 and 2012 #5 Chronic immunosuppression with prednisone, tacrolimus and [...] patient andcoordination of care as described above. OL BUS TECHNICIAN documented in this encounter Plan of Treatment Upcoming Encounters Date Type Specialty Care Team Description 05/22/2022 Appointment Laboratory Medicine Angélica Granger P.A.-C. [address] [place] [address] 05/23/2022 Clinical Admitting/Central Communication Scheduling 05/27/2022 Comprehensive Visit Orthopedic Surgery Markus Sams M.D., Ph.D. [address] [place] [phone] 05/29/2022 Office Visit Otorhinolaryngology Dex Matta APRN, C.N.P., M.S.N. [address] [place] [phone] 05/29/2022 Office Visit Otorhinolaryngology Nadeem Maradiaga P.A.-C., M.S. [address] [place] [phone] 05/31/2022 Appointment Radiology Guilherme Matt MPAS, Edmundo, M.S. [address] [place] [phone] 06/05/2022 Appointment Laboratory Medicine Angélica Granger P.A.-C. [address] [place] [phone] 06/19/2022 Appointment Laboratory Medicine Angélica Granger P.A.-C. [address] [place] [phone] 07/03/2022 Appointment Laboratory Medicine Angélica Granger P.A.-C. [address] [place] [phone] 07/17/2022 Appointment Laboratory Medicine Angélica Granger P.A.-C. [address] [place] [phone] 07/31/2022 Appointment Laboratory Medicine Angélica Granger P.A.-C. [address] [place] [address] 08/14/2022 Appointment Laboratory Medicine Angélica Granger P.A.-C. [address] [place] [phone] 08/28/2022 Appointment Laboratory Medicine Angélica Granger P.A.-C. [address] [place] [address] Scheduled Referrals Name Type Priority Associated Diagnoses Order S chedule Pulmonary - Outpatient Referral Routine Cough Expected : Nebulizer education 08/29/19 21 (clinic) (Approximate), Expires: 08/29/2023 documented as of this encounter Results CT Chest without IV Contrast (08/31/2020 3:07 PM SCHOOL BUS TECHNICIAN) Anatomical Region Laterality Modality Chest, Thoracic RST LOS, Thoracic ARZ N/A Co mputed Tomography, Computed LOS, Thoracic FLA LOS Tomography Specimen (Source) Anatomical Collection Method Collection Time Re ceived Time Location / / Volume Laterality 08/31/2020 3:10 PM SCHOOL BUS TECHNICIAN Impressions 08/31/2020 3:15 PM SCHOOL BUS TECHNICIAN 1. Improved bibasilar consolidation compatible with infection or inflammation since 01/31/2020. 2. Persistent airway wall thickening, ar eas of mucus plugging and peribronchiolar nodularity also compatib le with inflammatory or infectious airway disease. Narrative 08/31/2020 3:15 PM SCHOOL BUS TECHNICIAN EXAM: CT CHEST WITHOUT IV CONTRAST [...] PROCEDURES Pulmonary Function Tests (08/31/2020 11:01 AM SCHOOL BUS TECHNICIAN) Analysis Performed At Patho logist Time Signature VC MAX POST 3.79 L 08/31/2020 [facility] 3:11 PM SCHOOL BUS TECHNICIAN SUITE PostFVC 3.79 L 08/31/2020 [facility] 3:11 PM SCHOOL BUS TECHNICIAN SUITE PostFEV1 2.24 L 08/31/2020 [facility] 3:11 PM SCHOOL BUS TECHNICIAN SUITE FEV1/FVC POST 59.15 % 08/31/2020 [facility] 3:11 PM SCHOOL BUS TECHNICIAN SUITE FEF 25-75 % 1.00 L/s 08/31/2020 [facility] POST 3:11 PM SCHOOL BUS TECHNICIAN SUITE PEF POST 7.23 L/s 08/31/2020 [facility] 3:11 PM SCHOOL BUS TECHNICIAN SUITE FET POST 12.33 sec 08/31/2020 [facility] 3:11 PM SCHOOL BUS TECHNICIAN SUITE VC MAX PRE 3.52 L 08/31/2020 [facility] 3:11 PM SCHOOL BUS TECHNICIAN SUITE FVC 3.32 L 08/31/2020 [facility] 3:11 PM SCHOOL BUS TECHNICIAN SUITE FEV1 2.05 L 08/31/2020 [facility] 3:11 PM SCHOOL BUS TECHNICIAN SUITE FEV1/FVC 61.74 % 08/31/2020 [facility] 3:11 PM SCHOOL BUS TECHNICIAN SUITE TPQ99-43% 1.13 L/s 08/31/2020 [facility] 3:11 PM SCHOOL BUS TECHNICIAN SUITE PEF PRE 6.98 L/s 08/31/2020 [facility] 3:11 PM SCHOOL BUS TECHNICIAN SUITE FET PRE 8.38 sec 08/31/2020 [facility] 3:11 PM SCHOOL BUS TECHNICIAN SUITE SUBSTANCE POST Albuterol 08/31/2020 [facility] 3:11 PM SCHOOL BUS TECHNICIAN SUITE DOSE POST 2 Puff 08/31/2020 [facility] 3:11 PM SCHOOL BUS TECHNICIAN SUITE % PRED VC MAX 83 % % 08/31/2020 [facility] 3:11 PM SCHOOL BUS TECHNICIAN SUITE FVC% 78 % % 08/31/2020 [facility] 3:11 PM SCHOOL BUS TECHNICIAN SUITE FEV1% 63 % % 08/31/2020 [facility] 3:11 PM SCHOOL BUS TECHNICIAN SUITE % PRED 80 % % 08/31/2020 [facility] FEV1/FVC 3:11 PM SCHOOL BUS TECHNICIAN SUITE % PRED FEF 44 % % 08/31/2020 [facility] 25-75% 3:11 PM SCHOOL BUS TECHNICIAN SUITE % PRED PEF 85 % % 08/31/2020 [facility] 3:11 PM SCHOOL BUS TECHNICIAN SUITE PRED VC MAX 4.26 08/31/2020 [facility] 3:11 PM SCHOOL BUS TECHNICIAN SUITE PRED FVC 4.26 08/31/2020 [facility] 3:11 PM SCHOOL BUS TECHNICIAN SUITE PRED FEV 1 3.26 08/31/2020 [facility] 3:11 PM SCHOOL BUS TECHNICIAN SUITE PRED FEV1/FVC 76.7 08/31/2020 [facility] 3:11 PM SCHOOL BUS TECHNICIAN SUITE PRED FEF 2.59 08/31/2020 [facility] 25-75% 3:11 PM SCHOOL BUS TECHNICIAN SUITE PRED PEF 8.2 08/31/2020 [facility] 3:11 PM SCHOOL BUS TECHNICIAN SUITE Specimen (Source) Anatomical Collection Method Collection Time Re ceived Time Location / / Volume Laterality 08/31/2020 11:01 AM SCHOOL BUS TECHNICIAN Narrative This result has an attachment that is no t available. Connie Barron PFT ORDERABLES Performing Organization Address City/State/ZIP Code Phon e Number [facility] [address] (ABNORMAL) Immunoglobulins (IgG, IgA, and IgM) (08/28/2020 4:11 PM SCHOOL BUS TECHNICIAN) Patholo gist Method Time Signature Immunoglobulin A 32 (L) 61 - 356 08/29/2020 [facility] (IgA), S mg/dL 7:42 AM SCHOOL BUS TECHNICIAN Immunoglobulin M 56 37 - 286 08/29/2020 [facility] (IgM), S mg/dL 7:42 AM SCHOOL BUS TECHNICIAN Immunoglobulin G 807 767 - 08/29/2020 [facility] (IgG), S 1590 7:42 AM SCHOOL BUS TECHNICIAN mg/dL Specimen Anatomical Collection Method Collection Time Receive d Time (Source) Location / / Volume Laterality Blood (Blood, 08/28/2020 4:11 PM 08/30/19 6:06 Venous) SCHOOL BUS TECHNICIAN AM SCHOOL BUS TECHNICIAN Connie RocaSDemetrius LAB BLOOD ADD-ON Performing Organization Address City/[facility]/ZIP Code Phon e Number [facility] [address] [place], [place] [address] [facility] [place] [address] Laboratory Medicine and Pathology [address] [place] Mycobacterial Culture (08/28/2020 3:59 PM SCHOOL BUS TECHNICIAN) T-Quad 22 Method Time Signature Mycobacterial No growth 10/10/2020 DTL Culture after 42 1:01 AM CDT days of incubation . Specimen Anatomical Collection Method Collection Time Receive d Time (Source) Location / / Volume Laterality Sputum (Sputum) 08/28/2020 3:59 PM 2020 5:01 SCHOOL BUS TECHNICIAN PM SCHOOL BUS TECHNICIAN Comment: Specimen Source Site: Sputum Connie CottrellB.SDemetrius LAB MICROBIOLOGY - GENERAL ORDERABLES Performing Organization Address City/[facility]/ZIP Code Phon e Number [facility] - [address] [place], [place] [address] [facility] [place], [place] [phone] [place] [address] Acid Fast Smear For Mycobacterium (08/28/2020 3:59 PM SCHOOL BUS TECHNICIAN) T-Quad 22 Method Time Signature Acid Fast Smear Negative. 08/28/2020 DTL For Mycobacterium 10:56 PM SCHOOL BUS TECHNICIAN Specimen Anatomical Collection Method Collection Time Receive d Time (Source) Location / / Volume Laterality Sputum (Sputum) 08/28/2020 3:59 PM 2020 5:01 SCHOOL BUS TECHNICIAN PM SCHOOL BUS TECHNICIAN Comment: Specimen Source Site: Sputum Connie CottrellBDemetriusS. LAB MICROBIOLOGY - GENERAL ORDERABLES Performing Organization Address City/[facility]/ZIP [facility] Phon e Number [facility] - [address] [place], [place] [address] (ABNORMAL) Fungal Culture, Routine (08/28/2020 3:59 PM SCHOOL BUS TECHNICIAN) T-Quad 22 Method Time Signature Fungal PENICILLIUM sp 09/21/2020 DTL Culture, Few 12:32 PM CDT Routine (A) Comment: Susceptibility testing is not routinely recommended for this organism. Clinical correlation requ ired. Specimen Anatomical Collection Method Collection Time Receive d Time (Source) Location / / Volume Laterality Sputum (Sputum) 08/28/2020 3:59 PM 2020 5:01 SCHOOL BUS TECHNICIAN PM SCHOOL BUS TECHNICIAN Comment: Specimen Source Site: Sputum Connie CottrellB.S. LAB MICROBIOLOGY - GENERAL ORDERABLES Performing Organization Address [facility]/ZIP [facility] Phon e Number [facility] - [address] Fungal Smear (08/28/2020 3:59 PM SCHOOL BUS TECHNICIAN) P athologist Signature Fungal Smear Negative. 08/28/2020 DT 10:39 PM SCHOOL BUS TECHNICIAN Specimen Anatomical Collection Method Collection Time Receive d Time (Source) Location / / Volume Laterality Sputum (Sputum) 08/28/2020 3:59 PM 2020 5:01 SCHOOL BUS TECHNICIAN PM SCHOOL BUS TECHNICIAN Comment: Specimen Source Site: Sputum oCnnie CottrellB.S. LAB MICROBIOLOGY - GENERAL ORDERABLES Performing Organization Address [facility] Phon e Number [facility] - [address] [place] [address] (ABNORMAL) Bacterial Culture, Aerobic + Susc, Resp (08/28/2020 3:59 PM SCHOOL BUS TECHNICIAN) Patholo gist Method Time Signature Bacterial With usual 08/31/2020 DTL Culture, efrem (A) 12:07 PM SCHOOL BUS TECHNICIAN Aerobic, Resp Bacterial SERRATIA MARCESCENS 08/31/2020 DTL Culture, 2+ 12:07 PM SCHOOL BUS TECHNICIAN Aerobic, Resp (A) Comment: This organism may [...] Sputum (Sputum) 08/28/2020 3:59 PM 2020 5:01 SCHOOL BUS TECHNICIAN PM SCHOOL BUS TECHNICIAN Comment: Specimen Source Site: Sputum Organism Antibiotic [...] e Number [facility] - [address] [place] [address] [place] [address] [facility] 200 [facility] Gram Stain (08/28/2020 3:59 PM SCHOOL BUS TECHNICIAN) [facility] g[facility] Method Time Signature Gram Stain Mixed efrem. 08/28/2020 DTL White blood cells, Many. 6:24 PM SCHOOL BUS TECHNICIAN Epithelial cells, Moderate. Specimen Anatomical Collection Method Collection Time Receive d Time (Source) Location / / Volume Laterality Sputum (Sputum) 08/28/2020 3:59 PM 2020 5:01 SCHOOL BUS TECHNICIAN PM SCHOOL BUS TECHNICIAN Comment: Specimen Source Site: Sputum Connie Barron LAB MICROBIOLOGY - GENERAL ORDERABLES Performing Organization Address City/State/ZIP Code Phon e Number [address] [address] [facility] [place] [address] documented in this encounter Visit Diagnoses Diagnosis Cough Unspecified Type Pneumonia Pneumonia documented in this encounter Additional Health Concerns Assessment Noted Time PHQ-9 Depression Total Score: 3 11/22/2019 7:34 AM CDT documented as of this encounter Care Teams Mail Room Clerk Relationship Specialty Start Date End Date Elsewhere, Pcp PCP - General Family Medicine 07/29/17 [facility] - Laboratory Medicine 04/12/20 [place] [phone] documented as of this encounter
[2022-05-17 18:50] LABS: Procalcitonin* 0.59 ng/mL (<0.50)
--- OUTSIDE RECORDS SUMMARY | 2022-05-17 18:50 | XMS_ITS | Encounter Summary ---
:1955 Author Organization [facility] Address [address] [place] [address] Care Team Providers Name Role Phone Elsewhere, Pcp Primary Care Provider Unavailable Reason for Visit Outpatient (Routine) - Closed Specialty Diagnoses / Procedures Referred By Contact Refer red To Contact Otorhinolaryngology Dotty Burrows [place] R egion P.A.-C. [address] [place] [phone] Referral ID Status Reason Start Date Expiration Date Visits Requ ested Visits Authorized [id number] Closed 05/23/2020 05/23/2021 1 1 Encounter Details Date Type Department Care Team Description 06/06/2020 Office Visit Department of Toro Pena Cough (Primar y Dx); Otorhinolaryngology in [place] Rhinosinusitis Chronic; [place], [place] [address] [facility] Drip Post Nasal [address] [place] [phone] Social History Tobacco Use Types Packs/Day Years [...] 12/15/2021 organizations such as adventist groups, unions, fraGrow or athletic groups, or school groups? 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 Toro Pena MD [facility] Department of Otorhinolaryngology - Head & Neck Surgery This note was completed with voice recognition software. Please excuse typographic errors. ZER OPERATOR documented in this encounter Plan of Treatment Upcoming Encounters Date Type Specialty Care Team Description 05/22/2022 Appointment Laboratory Medicine Angélica Granger P.A.-C. [address] [place] [phone] 05/23/2022 Clinical Admitting/Central Communication Scheduling 05/27/2022 Comprehensive Visit Orthopedic Surgery Markus Sams M.D., Ph.D. [address] [place] [phone] 05/29/2022 Office Visit Otorhinolaryngology Dex Matta APRN, C.N.P., M.S.N. [address] [place] [address] [phone] 05/29/2022 Office Visit Otorhinolaryngology Nadeem Maradiaga, P.Murtaza.-C., M.S. [address] [place] [phone] 05/31/2022 Appointment Radiology Guilherme Matt MPAS, P.Murtaza.Marie., M.S. [address] [place] [phone] 06/05/2022 Appointment Laboratory Medicine Angélica Granger P.A.-C. [address] [place] [phone] 06/19/2022 Appointment Laboratory Medicine Angélica Granger P.A.-C. [address] [place] [phone] 07/03/2022 Appointment Laboratory Medicine Angélica Granger P.A.-C. [address] [place] [phone] 07/17/2022 Appointment Laboratory Medicine Angélica Granger P.A.-CDemetrius [address] [place] [address] [phone] 07/31/2022 Appointment Laboratory Medicine Angélica Granger P.A.-C. [address] [place] [phone] 08/14/2022 Appointment Laboratory Medicine Angélica Granger P.A.-C. [address] [place] [phone] 08/28/2022 Appointment Laboratory Medicine Angélica Granger P.A.-C. [address] [place] [phone] documented as of this encounter Visit Diagnoses Diagnosis Cough Unspecified Type - Primary Rhinosinusitis Chronic Drip Post Nasal documented in this encounter Additional Health Concerns Assessment Noted Time PHQ-9 Depression Total Score: 3 11/22/2019 7:34 AM CDT documented as of this encounter Care Teams Screwhead Stoner And Polisher Relationship Specialty Start Date End Date Elsewhere, Pcp PCP - General Family Medicine 07/29/17 [facility] - Laboratory Medicine 04/12/[address] [phone] documented as of this encounter
--- OUTSIDE RECORDS SUMMARY | 2022-05-17 18:50 | XMS_ITS | Encounter Summary ---
:1955 Author Organization [facility] Address [address] [place] [address] Care Team Providers Name Role Phone Elsewhere, Pcp Primary Care Provider Unavailable Encounter Details Date Type Department Care Team Description 05/25/2020 Orders Only Pharmacy Prior Auth Argelia Rodriguez I. 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 [address] [place] [phone] 05/23/2022 Clinical Admitting/Central Communication Scheduling 05/27/2022 Comprehensive Visit Orthopedic Surgery Markus Sams M.D., Ph.D. [address] [place] [phone] 05/29/2022 Office Visit Otorhinolaryngology Dex Matta APRN, C.N.P., M.S.N. [address] [place] [phone] 05/29/2022 Office Visit Otorhinolaryngology Nadeem Maradiaga, P.Murtaza.-Arley., M.S. [address] [place] [phone] 05/31/2022 Appointment Radiology Guilherme Matt MPAS, P.Murtaza.Marie., M.S. [address] [place] [address] [phone] 06/05/2022 Appointment Laboratory Medicine Angélica Granger P.A.-C. [address] [place] [address] [phone] 06/19/2022 Appointment Laboratory Medicine Angléica Granger P.A.-C. [address] [place] [phone] 07/03/2022 Appointment Laboratory Medicine Angélica Granger P.A.-C. [address] [place] [phone] 07/17/2022 Appointment Laboratory Medicine Angélica Granger P.A.-C. [address] [place] [phone] 07/31/2022 Appointment Laboratory Medicine Angélica Granger P.A.-C. [address] [place] [phone] 08/14/2022 Appointment Laboratory Medicine Angélica Granger P.A.-C. [address] [place] [phone] 08/28/2022 Appointment Laboratory Medicine Angélica Granger P.A.-C. [address] [place] [phone] documented as of this encounter Visit Diagnoses Not on filedocumented in this encounter Additional Health Concerns Infection Onset Date Last Indicated Resolved Time COVID19 Pending 06/01/2020 06/02/2020 06/02/2020 9:38 PM DOUGH CUTTING MACHINE OPERATOR Assessment Noted Time PHQ-9 Depression Total Score: 3 11/22/2019 7:34 AM CDT documented as of this encounter Care Teams Transit Man Relationship Specialty Start Date End Date Elsewhere, Pcp PCP - General Family Medicine 07/29/17 [facility] - Laboratory Medicine 04/12/[address] [phone] documented as of this encounter
--- OUTSIDE RECORDS SUMMARY | 2022-05-17 18:50 | XMS_ITS | Encounter Summary ---
:1955 Author Organization [facility] Address [address] [place] [address] Care Team Providers Name Role Phone Elsewhere, Pcp Primary Care Provider Unavailable Encounter Details Date Type Department Care Team Description 06/29/2020 Hospital Encounter Department of [facility] And Laboratory Medicine Sada Hobson Chronic Kidney in [address] Disease Stage 4 (HCC) [place], [place] 300 [facility] [address] [place], [place] [phone] [address] (Work) [phone] Social History Tobacco Use Types Packs/Day Years [...] at Date Recorded 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 Medication Therapy Medical Technicians Not Anticoagulant tacrolimus (PROGRAF) 0.5 Take 2 capsules (1 360 capsule 3 07/20/2020 mg capsuleIndications: mg total) by mouth Transplant Liver ([facility]), 2 (two) times a Medication [...] Laboratory Medicine Angélica Granger P.A.-C. [address] [place] [phone] 05/23/2022 Clinical Admitting/Central Communication Scheduling 05/27/2022 Comprehensive Visit Orthopedic Surgery Markus Sams M.D., Ph.D. [address] [place] [phone] 05/29/2022 Office Visit Otorhinolaryngology Dex Matta APRN, C.N.P., M.S.N. [address] [place] [phone] 05/29/2022 Office Visit Otorhinolaryngology Nadeem Maradiaga, PMaryanne., M.S. [address] [place] [phone] 05/31/2022 Appointment Radiology Guilherme Matt MPAS, PMaryanne., M.S. [address] [place] [address] [phone] 06/05/2022 Appointment Laboratory Medicine Angélica Granger P.A.-C. [address] [place] [phone] 06/19/2022 Appointment Laboratory Medicine Angélica Granger P.A.-C. [address] [place] [address] [phone] 07/03/2022 Appointment Laboratory Medicine Angélica Granger P.A.-C. [address] [place] [phone] 07/17/2022 Appointment Laboratory Medicine Angélica Granger P.A.-C. [address] [place] [phone] 07/31/2022 Appointment Laboratory Medicine Angélica Granger P.A.-C. [address] [place] [address] [phone] 08/14/2022 Appointment Laboratory Medicine Angélica Granger P.A.-C. [address] [place] [address] [phone] 08/28/2022 Appointment Laboratory Medicine Angélica Granger P.A.-C. [address] [place] [phone] documented as of this encounter Procedures Procedure Name Priority Date/Time Associated Diagnosis Comme nts ALBUMIN, RANDOM, U Routine 06/29/2020 8:34 AM Hypertension And Results for this ENERGY TECHNICIAN Chronic Kidney procedure are in Disease Stage 4 (HCC) the re sults section. URINALYSIS WITH Routine 06/29/2020 8:34 AM Hypertension And Re sults for this MICROSCOPIC ENERGY TECHNICIAN Chronic Kidney procedure are in Disease Stage 4 (HCC) the re sults section. documented in this encounter Results (ABNORMAL) Albumin, Random, Urine (06/29/2020 8:34 AM ENERGY TECHNICIAN) [facility] gist Method Time Signature Microalbumin 834.0 mg/L 06/29/2020 [place] 11:35 AM ENERGY TECHNICIAN Creatinine 68 mg/dL 06/29/2020 [place] 11:14 AM ENERGY TECHNICIAN Albumin/Creatinin 1226 (H) <17 mg/g 06/29/2020 [place] e Ratio 11:35 AM ENERGY TECHNICIAN Specimen Anatomical Collection Method Collection Time Receive d Time (Source) Location / / Volume Laterality Urine (Urine, 06/29/2020 8:34 AM 06/29/19 21 Voided) ENERGY TECHNICIAN 10:20 AM ENERGY TECHNICIAN Joce Bailey M.D. LAB URINE ORDERABLES Performing Organization Address City/State/ZIP Code Phon e Number [facility] [address] [place] [address] [facility] [address] System in [place] [address] (ABNORMAL) Urinalysis with Microscopic: Urine, Voided (06/29/2020 8:34 AM ENERGY TECHNICIAN) P athologist Signature Source Midstream 06/29/2020 FB60 9:15 AM ENERGY TECHNICIAN Clarity Clear Clear 06/29/2020 FB60 9:15 AM ENERGY TECHNICIAN Color Yellow 06/29/2020 FB60 9:15 AM ENERGY TECHNICIAN Comment: ----REFERENCE VALUE---- Colorless Yellow Bhakti Blood Small (A) Negative 06/29/2020 9:15 AM ENERGY TECHNICIAN FB60 Nitrite Negative Negative 06/29/2020 9:15 AM ENERGY TECHNICIAN FB60 Leukocyte Esterase Negative Negative 06/29/2020 9:15 AM CS T FB60 Protein >=300 (A) mg/dL 06/29/2020 9:15 AM ENERGY TECHNICIAN FB60 Comment: ----REFERENCE VALUE---- Negative Trace Glucose Negative Negative mg/dL 06/29/2020 9:15 AM ENERGY TECHNICIAN FB 60 Ketones, QI(U) Negative Negative mg/dL 06/29/2020 9:[address] FB60 Bilirubin Negative Negative 06/29/2020 9:15 AM ENERGY TECHNICIAN FB60 pH 7.0 5.0 - 8.0 06/29/2020 9:15 AM ENERGY TECHNICIAN FB60 Specific [place] 1.015 1.001 - 1.035 06/29/2020 9:15 AM ENERGY TECHNICIAN FB60 Urobilinogen 0.2 0.2 - 1.0 mg/dL 06/29/2020 9:15 AM CS T FB60 White Blood Cells None Seen /hpf 06/29/2020 9:18 AM ENERGY TECHNICIAN FB60 Comment: ----REFERENCE VALUE---- Males: 0-3 Females: 0-10 Unknown: 0-10 Red Blood Cells Occ-2 0 - 2 /hpf 06/29/2020 9:18 AM ENERGY TECHNICIAN FB60 Dysmorphic Red Blood Cells <=25 <=25 % 06/29/2020 9: 18 AM ENERGY TECHNICIAN FB60 Specimen Anatomical Collection Method Collection Time Receive d Time (Source) Location / / Volume Laterality Urine (Urine, 06/29/2020 8:34 AM 06/29/19 8:51 Voided) ENERGY TECHNICIAN AM ENERGY TECHNICIAN Joce Bailey M.D. LAB URINE ORDERABLES Performing Organization Address City/State/ZIP Code Phon e Number [facility] [address] [place], [place] [id number] [place] [address] LAB FB60 [place] [address] System in [address] documented in this encounter Visit Diagnoses Diagnosis Hypertension And Chronic Kidney Disease Stage 4 (HCC) documented in this encounter Additional Health Concerns Assessment Noted Time PHQ-9 Depression Total Score: 3 11/22/2019 7:34 AM CDT documented as of this encounter Care Teams Supervisor Phosphatic Fertilizer Relationship Specialty Start Date End Date Elsewhere, Pcp PCP - General Family Medicine 07/29/17 [facility] - Laboratory Medicine 04/12/[address] [address] documented as of this encounter
--- OUTSIDE RECORDS SUMMARY | 2022-05-17 18:50 | XMS_ITS | Encounter Summary ---
:1955 Author Organization [facility] Address [address] [place] [address] Care Team Providers Name Role Phone Elsewhere, Pcp Primary Care Provider Unavailable Reason for Visit Reason Comments Hypertension Blood pressure check after m edication changes on 05/22/2020 Outpatient (Routine) - Closed Specialty Diagnoses / Procedures Referred By Contact Refer red To Contact Nephrology and [facility] Hypertension Sada Hobson [address] [place] [address] Referral ID Status Reason Start Date Expiration Date Visits Requ ested Visits Authorized [id number] Closed 05/22/2020 05/22/2021 1 1 Encounter Details Date Type Department Care Team Description 07/03/2020 Nurse Only Division of Nephrology Joce Epperson M.D. [address] [place] [phone] Hypertension (Blood and Hypertension in Taya Blake I., R.N. 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 documented as of this encounter Last Filed Vital Signs Vital Sign Reading Time Taken Comments Blood Pressure 110/58 07/03/2020 11:25 AM VULNERABILITY ASSESSMENT ANALYST Pulse 80 07/03/2020 11:22 AM VULNERABILITY ASSESSMENT ANALYST Temperature - - Respiratory Rate - - Oxygen Saturation - - Inhaled Oxygen Concentration - - Weight 82.4 kg (181 lb 10.5 oz) 07/03/2020 11:22 AM VULNERABILITY ASSESSMENT ANALYST Height - - Body Mass Index 25.24 05/22/2020 3:32 PM VULNERABILITY ASSESSMENT ANALYST documented in this encounter Progress Notes Taya [...] drink caffeine [place] [address] in the morning before medications and 150/75-80 [...] Dr. Bailey will review this clinical information. ERABILITY ASSESSMENT ANALYST documented in this encounter Plan of Treatment Upcoming Encounters Date Type Specialty Care Team Description 05/22/2022 Appointment Laboratory Medicine Angélica Granger P.A.-C. [address] [place] [phone] 05/23/2022 Clinical Admitting/Central Communication Scheduling 05/27/2022 Comprehensive Visit Orthopedic Surgery Markus Sams M.D., Ph.D. [address] [place] [phone] 05/29/2022 Office Visit Otorhinolaryngology Dex Matta APRN C.N.P., M.S.N. [address] [place] [address] [phone] 05/29/2022 Office Visit Otorhinolaryngology Nadeem Maradiaga, Jennifer., M.S. [address] [place] [phone] 05/31/2022 Appointment Radiology Guilherme Matt, RASTA, Jennifer., M.S. [address] [place] [phone] 06/05/2022 Appointment Laboratory Medicine Angélica Granger P.A.-C. [address] [place] [phone] 06/19/2022 Appointment Laboratory Medicine Angélica Granger P.A.-C. [address] [place] [phone] 07/03/2022 Appointment Laboratory Medicine Angélica Granger P.A.-C. [address] [place] [phone] 07/17/2022 Appointment Laboratory Medicine Angélica Granger P.A.-C. [address] [place] [phone] 07/31/2022 Appointment Laboratory Medicine Angélica Granger P.A.-C. [address] [place] [phone] 08/14/2022 Appointment Laboratory Medicine Angélica Granger P.A.-C. [address] [place] [phone] 08/28/2022 Appointment Laboratory Medicine Angélica Granger P.A.-C. [address] [place] [phone] documented as of this encounter Visit Diagnoses Diagnosis Chronic Kidney Disease Stage 4 Glomerula r Filtration Rate 15-29 (HCC) - Primary documented in this encounter Additional Health Concerns Assessment Noted Time PHQ-9 Depression Total Score: 3 11/22/2019 7:34 AM CDT documented as of this encounter Care Teams Behaviour Support Teacher Relationship Specialty Start Date End Date Elsewhere, Pcp PCP - General Family Medicine 07/29/17 [facility] - Laboratory Medicine 04/12/[address] [address] documented as of this encounter
--- OUTSIDE RECORDS SUMMARY | 2022-05-17 18:50 | XMS_ITS | Encounter Summary ---
:1955 Author Organization 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 [address] [place] [phone] 05/23/2022 Clinical Admitting/Central Communication Scheduling 05/27/2022 Comprehensive Visit Orthopedic Surgery Markus Sams M.D., Ph.D. [address] [place] [phone] 05/29/2022 Office Visit Otorhinolaryngology Dex Matta APRN, C.N.P., M.S.N. [address] [place] [phone] 05/29/2022 Office Visit Otorhinolaryngology Nadeem Maradiaga, P.Murtaza.-Arley., M.S. [address] [place] [phone] 05/31/2022 Appointment Radiology Guilherme Matt MPAS, PMaryanne., M.S. [address] [place] [phone] 06/05/2022 Appointment Laboratory Medicine Angélica Granger P.A.-C. [address] [place] [phone] 06/19/2022 Appointment Laboratory Medicine Angélica Granger P.A.-C. [address] [place] [phone] 07/03/2022 Appointment Laboratory Medicine Angélica Granger P.A.-C. [address] [place] [phone] 07/17/2022 Appointment Laboratory Medicine Angélica Granger P.A.-C. [address] [place] [phone] 07/31/2022 Appointment Laboratory Medicine Angélica Granger P.A.-C. [address] [place] [phone] 08/14/2022 Appointment Laboratory Medicine Angélica Granger P.A.-C. [address] [place] [phone] 08/28/2022 Appointment Laboratory Medicine Angélica Granger P.A.-C. [address] [place] [phone] documented as of this encounter Procedures Procedure Name Priority Date/Time Associated Comments Diagnosis OTORHINOLARYNGOLOGY IMAGE Routine 06/06/2020 10:17 Results for this EXAM AM CONSTRUCTION SCHEDULER procedure are i n the results section. documented in this encounter Results NOSE-Otorhinolaryngology Image Exam (06/06/2020 10:17 AM CONSTRUCTION SCHEDULER) Specimen (Source) Anatomical Collection Method Collection Time Re ceived Time Location / / Volume Laterality 06/06/2020 10:18 AM CONSTRUCTION SCHEDULER Narrative IIMS - 06/06/2020 10:17 AM CONSTRUCTION SCHEDULER This order has been created and auto-finalized [...] documented as of this encounter Care Teams Deep Well Contractor Relationship Specialty Start Date End Date Elsewhere, Pcp PCP - General Family Medicine 07/29/17 [facility] - Laboratory Medicine 04/12/20 [place] [phone] documented as of this encounter
--- OUTSIDE RECORDS SUMMARY | 2022-05-17 18:50 | XMS_ITS | Encounter Summary ---
:1955 Author Organization [facility] Address [address] [place] [address] Care Team Providers Name Role Phone Elsewhere, Pcp Primary Care Provider Unavailable Reason for Referral Outpatient (Routine) - Closed Specialty Diagnoses / Procedures Referred By Contact Refer red To Contact Otorhinolaryngology Dotty Burrows [place] [facility] egion P.A.-C. [address] [place] [phone] Referral ID Status Reason Start Date Expiration Date Visits Requ ested Visits Authorized [id number] Closed 05/23/2020 05/23/2021 1 1 Scheduling Instructions with ELICIA, JYOTI or EKO - heavenlyid needed E SPECIALIST Reason for Visit Outpatient (Routine) - Closed Specialty Diagnoses / Procedures Referred By Contact Refer red To Contact Video Medicine Diagnoses Rhinosinusitis Chronic Avril Bright M.D. 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 The patient has seen Dr. Bernard in the past he is open to seeing any graphic art technician with availability. I refilled his Flonase prescription and encouraged him to use this two sprays twice daily until follow-up. This visit lasted more than 45 min and over 50% of the time was spent counselling the patient. Intraoperative findings, the significance of the pathology report, future management options, and expecteddisease course were discussed. The patient's questions were answered. Dotty Burrows P.A.-C., M.S. E SPECIALIST documented in this encounter Plan of Treatment Upcoming Encounters Date Type Specialty Care Team Description 05/22/2022 Appointment Laboratory Medicine Angélica Granger P.A.-C. [address] [place] [phone] 05/23/2022 Clinical Admitting/Central Communication Scheduling 05/27/2022 Comprehensive Visit Orthopedic Surgery Markus Sams M.D., Ph.D. [address] [place] [phone] 05/29/2022 Office Visit Otorhinolaryngology Dex Matta APRN, C.N.P., M.S.N. [address] [place] [phone] 05/29/2022 Office Visit Otorhinolaryngology Nadeem Maradiaga, P.Murtaza.-Arley., M.S. [address] [place] [address] [phone] 05/31/2022 Appointment Radiology Guilherme Matt, RASTA, PMaryanne., M.S. [address] [place] [address] [phone] 06/05/2022 Appointment Laboratory Medicine Angélica Granger P.A.-C. [address] [place] [address] [phone] 06/19/2022 Appointment Laboratory Medicine Angélica Granger P.A.-C. [address] [place] [address] [phone] 07/03/2022 Appointment Laboratory Medicine Angélica Granger P.A.-C. [address] [place] [phone] 07/17/2022 Appointment Laboratory Medicine Angélica Granger P.A.-C. [address] [place] [phone] 07/31/2022 Appointment Laboratory Medicine Angélica Granger P.A.-C. [address] [place] [phone] 08/14/2022 Appointment Laboratory Medicine Angélica Granger P.A.-C. [address] [place] [phone] 08/28/2022 Appointment Laboratory Medicine Angélica Granger P.A.-C. [address] [place] [phone] Scheduled Referrals Name Type Priority Associated Order Schedule Diagnoses Otorhinolaryngology office Outpatient Routine E xpected: visit (clinic) Referral 05/29/2020 (Approximate), Expires: 05/23/2023 documented as of this encounter Visit Diagnoses Diagnosis Cough Unspecified Type - Primary Rhinosinusitis Chronic documented in this encounter Additional Health Concerns Assessment Noted Time PHQ-9 Depression Total Score: 3 11/22/2019 7:34 AM CDT documented as of this encounter Care Teams Weblogic Administrator Relationship Specialty Start Date End Date Elsewhere, Pcp PCP - General Family Medicine 07/29/17 [facility] - Laboratory Medicine 04/12/[address] [address] documented as of this encounter
--- OUTSIDE RECORDS SUMMARY | 2022-05-17 18:50 | XMS_ITS | Encounter Summary ---
:1955 Author Organization [facility] Address [address] [place] [address] Care Team Providers Name Role Phone Elsewhere, Pcp Primary Care Provider Unavailable Encounter Details Date Type Department Care Team Description 06/29/2020 Hospital Encounter Department of 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 Medication Therapy All Source Intelligence Analyst Not Anticoagulant tacrolimus (PROGRAF) 0.5 Take 2 capsules (1 360 capsule 3 07/20/2020 mg capsuleIndications: mg total) by mouth Transplant Liver ([facility]), 2 (two) times a Medication Therapy Long [...] Laboratory Medicine Angélica Granger P.A.-C. [address] [place] [phone] 05/23/2022 Clinical Admitting/Central Communication Scheduling 05/27/2022 Comprehensive Visit Orthopedic Surgery Markus Sams M.D., Ph.D. [address] [place] [phone] 05/29/2022 Office Visit Otorhinolaryngology Dex Matta APRN, C.N.P., M.S.N. [address] [place] [phone] 05/29/2022 Office Visit Otorhinolaryngology Nadeem Maradiaga, PMaryanne., M.S. [address] [place] [phone] 05/31/2022 Appointment Radiology Guilherme Matt MPAS, PMaryanne., M.S. [address] [place] [address] [phone] 06/05/2022 Appointment Laboratory Medicine Angélica Granger P.A.-C. [address] [place] [phone] 06/19/2022 Appointment Laboratory Medicine Angélica Granger P.A.-C. [address] [place] [address] [phone] 07/03/2022 Appointment Laboratory Medicine Angélica Granger P.A.-C. [address] [place] [phone] 07/17/2022 Appointment Laboratory Medicine Angélica Granger P.A.-C. [address] [place] [phone] 07/31/2022 Appointment Laboratory Medicine Angélica Granger P.A.-C. [address] [place] [address] [phone] 08/14/2022 Appointment Laboratory Medicine Angélica Granger P.A.-C. [address] [place] [phone] 08/28/2022 Appointment Laboratory Medicine Angélica Granger P.A.-C. [address] [place] [phone] documented as of this encounter Procedures Procedure Name Priority Date/Time Associated Diagnosis Comme nts BASIC METABOLIC Routine 06/29/2020 8:35 AM Hypertension And Re sults for this PANEL, S/P [employer] DRIVER Chronic Kidney procedure are in Disease Stage 4 (HCC) the re sults section. documented in this encounter Results (ABNORMAL) Basic Metabolic Panel (06/29/2020 8:35 AM [employer] DRIVER) Analysis Performed At Patho logist Time Signature Potassium, P 3.9 3.6 - 5.2 06/29/2020 [place] mmol/L 10:53 AM [employer] DRIVER Sodium, P 137 135 - 145 06/29/2020 [place] mmol/L 10:53 AM [employer] DRIVER Chloride, P 101 98 - 107 06/29/2020 [place] mmol/L 10:53 AM [employer] DRIVER Bicarbonate, P 26 22 - 29 06/29/2020 [place] mmol/L 10:53 AM [employer] DRIVER Anion Gap, P 10 7 - 15 06/29/2020 [place] 10:53 AM [employer] DRIVER BUN (Blood Urea 53 (H) 8 - 24 06/29/2020 [place] Nitrogen), P mg/dL 10:53 AM [employer] DRIVER Creatinine 3.58 (H) 0.74 - 06/29/2020 [place] 1.35 mg/dL 10:53 AM [employer] DRIVER eGFR-Black/Afri 19 (L) >=60 06/29/2020 [place] can [place] mL/min/BSA 10:53 AM [employer] DRIVER Comment: ----ADDITIONAL INFORMATION---- Estimated GFR calculated using the 2009 CKD_EPI creatinine equation. eGFR Non-Black/ 17 (L) >=60 mL/min/BSA 06/29/2020 10:53 AM [employer] DRIVER [place] Comment: ----ADDITIONAL INFORMATION---- Estimated GFR calculated using the 2009 CKD_EPI creatinine equation. Calcium, Total, P 9.3 8.8 - 10.2 mg/dL 06/29/2020 10:5 3 AM [employer] DRIVER [place] Glucose, P 108 70 - 140 mg/dL 06/29/2020 10:53 AM [employer] DRIVER [place] Specimen Anatomical Collection Method Collection Time Receive d Time (Source) Location / / Volume Laterality Blood (Blood, 06/29/2020 8:35 AM 06/29/19 21 Venous) [employer] DRIVER 10:20 AM [employer] DRIVER Joce Bailey M.D. LAB BLOOD ADD-ON Performing Organization Address City/State/ZIP Code Phon e Number [facility]- [address] [place] [address] [facility] [place] [place] [address] System in [place] [address] documented in this encounter Visit Diagnoses Diagnosis Hypertension And Chronic Kidney Disease Stage 4 (HCC) documented in this encounter Additional Health Concerns Assessment Noted Time PHQ-9 Depression Total Score: 3 11/22/2019 7:34 AM CDT documented as of this encounter Care Teams Buttonhole Machine Operator Relationship Specialty Start Date End Date Elsewhere, Pcp PCP - General Family Medicine 07/29/17 [facility] - Laboratory Medicine 04/12/20 [place] [phone] documented as of this encounter
--- OUTSIDE RECORDS SUMMARY | 2022-05-17 18:50 | XMS_ITS | Encounter Summary ---
:1955 Author Organization [facility] Address [address] [place] [address] Care Team Providers Name Role Phone Elsewhere, Pcp Primary Care Provider Unavailable Encounter Details Date Type Department Care Team Description 06/02/2020 Lab Department of [facility] Toro Pena Enc ounter For Screening Medicine, [facility] Sada For Other Viral Diseases Building, in [address] [facility] (COVID-19) [place], [place] [address] [facility] [address] [place] [address] [phone] Social History Tobacco Use Types Packs/Day Years [...] at Date Recorded Male 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 [address] [place] [phone] 05/23/2022 Clinical Admitting/Central Communication Scheduling 05/27/2022 Comprehensive Visit Orthopedic Surgery Markus Sams M.D., Ph.D. [address] [place] [phone] 05/29/2022 Office Visit Otorhinolaryngology Dex Matta, BLADE GROOVER, C.N.P., M.S.N. [address] [place] [phone] 05/29/2022 Office Visit Otorhinolaryngology Nadeem Maradiaga, P.Murtaza.-Arley., M.S. [address] [place] [phone] 05/31/2022 Appointment Radiology Guilherme Matt MPAS, Jennifer., M.S. [address] [place] [address] [phone] 06/05/2022 Appointment Laboratory Medicine Angélica Granger P.A.-C. [address] [place] [phone] 06/19/2022 Appointment Laboratory Medicine Angélica Granger P.A.-C. [address] [place] [phone] 07/03/2022 Appointment Laboratory Medicine Angélica Granger P.A.-C. [address] [place] [phone] 07/17/2022 Appointment Laboratory Medicine Angélica Granger P.A.-C. [address] [place] [phone] 07/31/2022 Appointment Laboratory Medicine Angélica Granger P.A.-C. [address] [place] [phone] 08/14/2022 Appointment Laboratory Medicine Angélica Granger P.A.-C. [address] [place] [phone] 08/28/2022 Appointment Laboratory Medicine Angélica Granger P.A.-C. [address] [place] [phone] documented as of this encounter Procedures Procedure Name Priority Date/Time Associated Diagnosis Comme nts SARS CORONAVIRUS-2 Routine 06/02/2020 9:00 AM Encounter For Re sults for this RNA, V GLOVE BOARDER Screening For Other procedur e are in Viral Diseases the results (COVID-19) section. documented in this encounter Results SARS Coronavirus-2 RNA, V Asymptomatic (06/02/2020 9:00 AM GLOVE BOARDER) [facility] Method Time Signature SARS-CoV-2 Swab, 06/02/2020 MKTO Specimen Nasopharynx 9:37 PM GLOVE BOARDER Source SARS CoV-2 Undetected Undetected 06/02/2020 MKTO RNA, TMA 9:37 PM GLOVE BOARDER Comment: SARS-CoV-2 RNA absent. This result does not rule out COVID-19 in the patient, as the sensitivity of the test depends o n the timing of the specimen collection and the quality of the specim en. Result should be correlated with patient's history and clinical presentat ion. ----ADDITIONAL INFORMATION---- This test is performed using the Aptima SARS-CoV-2 assay ([employer] which has received Emergency Use Authori zation (EUA) by the U.S. Food and Drug Administration. Fact sheets for this Emergency Use Autho rization (EUA) assay can be found at the following links: For Healthcare Providers: https://www.[employer] a.gov/media/449390/download For Patients: https://www.fda.gov/media/ 907881/download Specimen Anatomical Collection Method Collection Time Receive d Time (Source) Location / / Volume Laterality Varies 06/02/2020 9:00 AM 0 3:52 (Nasopharynx) GLOVE BOARDER PM GLOVE BOARDER Toro Pena M.D. LAB MICROBIOLOGY - GENERAL O RDERABLES Performing Organization Address City/State/ZIP Code Phon e Number [facility]- [address] [place] [address] [place] [address] [address] documented in this encounter Visit Diagnoses Diagnosis Encounter For Screening For Other Viral Diseases (COVID-19) documented in this encounter Additional Health Concerns Infection Onset Date Last Indicated Resolved Time COVID19 Pending 06/01/2020 06/02/2020 06/02/2020 9:38 PM GLOVE BOARDER Assessment Noted Time PHQ-9 Depression Total Score: 3 11/22/2019 7:34 AM CDT documented as of this encounter Care Teams Java Jsf Developer Relationship Specialty Start Date End Date Elsewhere, Pcp PCP - General Family Medicine 07/29/17 [facility] - Laboratory Medicine 04/12/20 [place] [phone] documented as of this encounter
--- OUTSIDE RECORDS SUMMARY | 2022-05-17 18:50 | XMS_ITS | Encounter Summary ---
:1955 Author Organization [facility] Address [address] [place] [address] Care Team Providers Name Role Phone Elsewhere, Pcp Primary Care Provider Unavailable Reason for Visit Appointment Request (Routine) - Closed Specialty Diagnoses / Procedures Referred By Contact Refer red To Contact Dermatology Diagnoses Lesion Skin Referral ID Status Reason Start Date Expiration Date Visits Requ ested Visits Authorized [id number] Closed 05/29/2020 05/29/2021 1 1 Encounter Details Date Type Department Care Team Description 06/06/2020 Comprehensive Visit Department of Stuart Aguila is Seborrheic Dermatology in [place], [place]. 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 This would increase the risk of subclinical growth or even spread of skin cancer, for which the patient is at high risk at baseline. E D TECH documented in this encounter Plan of Treatment Upcoming Encounters Date Type Specialty Care Team Description 05/22/2022 Appointment Laboratory Medicine Angélica Granger P.A.-C. [address] [place] [phone] 05/23/2022 Clinical Admitting/Central Communication Scheduling 05/27/2022 Comprehensive Visit Orthopedic Surgery Markus Sams M.D., Ph.D. [address] [place] [phone] 05/29/2022 Office Visit Otorhinolaryngology Dex Matta APRN, C.N.P., M.S.N. [address] [place] [phone] 05/29/2022 Office Visit Otorhinolaryngology Nadeem Maradiaga P.A.-C., M.S. [address] [place] [phone] 05/31/2022 Appointment Radiology Guilherme Matt MPAS, P.A.-C., M.S. [address] [place] [phone] 06/05/2022 Appointment Laboratory Medicine Angélica Granger P.A.-C. [address] [place] [phone] 06/19/2022 Appointment Laboratory Medicine Angélica Granger P.A.-C. [address] [place] [phone] 07/03/2022 Appointment Laboratory Medicine Angélica Granger P.A.-C. [address] [place] [phone] 07/17/2022 Appointment Laboratory Medicine Angélica Granger P.A.-C. [address] [place] [phone] 07/31/2022 Appointment Laboratory Medicine Angélica Granger P.A.-C. [address] [place] [phone] 08/14/2022 Appointment Laboratory Medicine Angélica Granger P.A.-C. [address] [place] [phone] 08/28/2022 Appointment Laboratory Medicine Angélica Granger P.A.-C. [address] [place] [phone] documented as of this encounter Visit Diagnoses Diagnosis Keratosis Seborrheic Inflamed - Primary documented in this encounter Additional Health Concerns Assessment Noted Time PHQ-9 Depression Total Score: 3 11/22/2019 7:34 AM CDT documented as of this encounter Care Teams Principal Law Clerk Relationship Specialty Start Date End Date Elsewhere, Pcp PCP - General Family Medicine 07/29/17 [facility] - Laboratory Medicine 04/12/[address] [address] documented as of this encounter
--- OUTSIDE RECORDS SUMMARY | 2022-05-17 18:50 | XMS_ITS | Encounter Summary ---
:1955 Author Organization [facility] Address [address] [place] [address] Care Team Providers Name Role Phone Elsewhere, Pcp Primary Care Provider Unavailable Encounter Details Date Type Department Care Team Description 07/04/2020 Documentation Division of Nephrology and [place], Hypertension in [place], Kavya house M.D. 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 DESIGN LEAD documented in this encounter Plan of Treatment Upcoming Encounters Date Type Specialty Care Team Description 05/22/2022 Appointment Laboratory Medicine Angélica Granger P.A.-C. [address] [place] [phone] 05/23/2022 Clinical Admitting/Central Communication Scheduling 05/27/2022 Comprehensive Visit Orthopedic Surgery Markus Sams M.D., Ph.D. [address] [place] [phone] 05/29/2022 Office Visit Otorhinolaryngology Dex Matta APRN, C.N.P., M.S.N. [address] [place] [phone] 05/29/2022 Office Visit Otorhinolaryngology Nadeem Maradiaga P.A.-C., M.S. [address] [place] [phone] 05/31/2022 Appointment Radiology Guilherme Matt MPAS, P.A.-C., M.S. [address] [place] [phone] 06/05/2022 Appointment Laboratory Medicine Angélica Granger P.A.-C. [address] [place] [phone] 06/19/2022 Appointment Laboratory Medicine Angélica Granger P.A.-C. [address] [place] [phone] 07/03/2022 Appointment Laboratory Medicine Angélica Granger P.A.-C. [address] [place] [phone] 07/17/2022 Appointment Laboratory Medicine Angélica Granger P.A.-C. [address] [place] [phone] 07/31/2022 Appointment Laboratory Medicine Angélica Granger P.A.-C. [address] [place] [phone] 08/14/2022 Appointment Laboratory Medicine Angélica Granger P.A.-C. [address] [place] [phone] 08/28/2022 Appointment Laboratory Medicine Angélica Granger P.A.-C. [address] [place] [phone] documented as of this encounter Visit Diagnoses Not on filedocumented in this encounter Additional Health Concerns Assessment Noted Time PHQ-9 Depression Total Score: 3 11/22/2019 7:34 AM CDT documented as of this encounter Care Teams Pharmacy Order Entry Technician Relationship Specialty Start Date End Date Elsewhere, Pcp PCP - General Family Medicine 07/29/17 [facility] - Laboratory Medicine 04/12/20 [place] [address] documented as of this encounter
--- OUTSIDE RECORDS SUMMARY | 2022-05-17 18:50 | XMS_ITS | Encounter Summary ---
:1955 Author Organization [facility] Address [address] [place] [address] Care Team Providers Name Role Phone Elsewhere, Pcp Primary Care Provider Unavailable Reason for Referral Outpatient (Routine) - Closed Specialty Diagnoses / Procedures Referred By Contact Refer red To Contact Nephrology and [facility] Hypertension Sada Hobson [address] [place] [address] Referral ID Status Reason Start Date Expiration Date Visits Requ ested Visits Authorized [id number] Closed 05/22/2020 05/22/2021 1 1 ANICAL ENGINEERING TEACHER Outpatient (Routine) - Closed Specialty Diagnoses / Procedures Referred By Contact Refer red To Contact Nephrology and [facility] Hypertension Sada Hobson [address] [place] [address] Referral ID Status Reason Start Date Expiration Date Visits Requ ested Visits Authorized [id number] Closed 05/22/2020 05/22/2021 1 1 ANICAL ENGINEERING TEACHER Reason for Visit Reason Comments Chronic Kidney Disease Outpatient (Routine) - Closed Specialty Diagnoses / Procedures Referred By Contact Refer red To Contact Nephrology and [facility] Hypertension Sada Hobson [address] [place] [address] Referral ID Status Reason Start Date Expiration Date Visits Requ ested Visits Authorized [id number] Closed 11/17/2019 11/16/2020 1 1 Encounter Details Date Type Department Care Team Description 05/22/2020 Office Visit Division of Nephrology Mike Bailey rtension And and Hypertension in Sada Hobson Chronic Kidney Disease [place], [place] [address] [facility] Stage 4 (HCC) (Primary [address] [place], [place] Dx) [place] [id number] [phone] Social History Tobacco Use Types Packs/Day Years [...] Recorded Male 05/16/2020 4:27 PM MECHANICAL ENGINEERING TEACHER documented as of this encounter Last Filed Vital Signs Vital Sign Reading Time Taken Comments Blood Pressure 146/80 05/22/2020 3:32 PM MECHANICAL ENGINEERING TEACHER Pulse 61 05/22/2020 3:32 PM MECHANICAL ENGINEERING TEACHER Temperature 36.1 ??C (97 ??F) 05/22/2020 3:32 PM MECHANICAL ENGINEERING TEACHER Respiratory Rate - - Oxygen Saturation - - Inhaled Oxygen Concentration - - Weight 80.8 kg (178 lb 2.1 oz) 05/22/2020 3:32 PM MECHANICAL ENGINEERING TEACHER Height 180.7 cm (5' 11.14) 05/22/2020 3:32 PM MECHANICAL ENGINEERING TEACHER Body Mass Index 24.75 05/22/2020 3:32 PM MECHANICAL ENGINEERING TEACHER documented in this encounter Progress Notes Espinoza [...] He also has significant arteriosclerosisand arteriolar hyalinosis, [id number]. Interstitial fibrosis with tubular atrophy affects approximately [...] me again in 3 months Contact number: [phone] Espinoza Bailey M.D. ANICAL ENGINEERING TEACHER Associated attestation - Nicole Peraza M.D. - 08/31/2020 3:56 PM MECHANICAL ENGINEERING TEACHER I reviewed this case with Dr. Espinoza Bailey. I did not meet Mr. Singh . I agree with the impression and plan recorded by Dr. Espinoza Bailey. documented in this encounter Miscellaneous Notes Addendum Note - Espinoza Bailey M.D. - 05/22/2020 4:00 PM MECHANICAL ENGINEERING TEACHER Addended by: ESPINOZA BAILEY on: 06/17/2020 10:50 AM Modules accepted: Orders ANICAL ENGINEERING TEACHER documented in this encounter Plan of Treatment Upcoming Encounters Date Type Specialty Care Team Description 05/22/2022 Appointment Laboratory Medicine Angélica Granger P.A.-C. [address] [place] [phone] 05/23/2022 Clinical Admitting/Central Communication Scheduling 05/27/2022 Comprehensive Visit Orthopedic Surgery Markus Sams M.D., Ph.D. [address] [place] [phone] 05/29/2022 Office Visit Otorhinolaryngology Dex Matta APRN, C.N.P., M.S.N. [address] [place] [phone] 05/29/2022 Office Visit Otorhinolaryngology Nadeem Maradiaga P.A.-C., M.S. [address] [place] [phone] 05/31/2022 Appointment Radiology Guilherme Matt MPAS, Edmundo, M.S. [address] [place] [phone] 06/05/2022 Appointment Laboratory Medicine Angélica Granger P.A.-C. [address] [place] [phone] 06/19/2022 Appointment Laboratory Medicine Angélica Granger P.A.-C. [address] [place] [phone] 07/03/2022 Appointment Laboratory Medicine Angélica Granger P.A.-C. [address] [place] [phone] 07/17/2022 Appointment Laboratory Medicine Angélica Granger P.A.-C. [address] [place] [phone] 07/31/2022 Appointment Laboratory Medicine Angélica Granger P.A.-C. [address] [place] [phone] 08/14/2022 Appointment Laboratory Medicine Angélica Granger P.A.-C. [address] [place] [phone] 08/28/2022 Appointment Laboratory Medicine Angélica Granger P.A.-C. [address] [place] [phone] Scheduled Referrals Name Type Priority Associated Order Schedule Diagnoses Nephrology nurse Outpatient Referral Routine Expe cted: visit (clinic) 07/03/2020 (Approximate), Expires: 05/22/2023 Nephrology and Outpatient Referral Routine Expect ed: Hypertension office 08/20/19 visit (clinic) (Approximate) , Expires: 05/22/2023 documented as of this encounter Results 25-Hydroxyvitamin D2 and D3 (08/30/2020 8:58 AM MECHANICAL ENGINEERING TEACHER) athologist Signature 25-Hydroxy D2 <4.0 ng/mL 09/01/2020 SDSC 11:48 PM MECHANICAL ENGINEERING TEACHER 25-Hydroxy D3 52 ng/mL 09/01/2020 SDSC 11:48 PM MECHANICAL ENGINEERING TEACHER 25-Hydroxy D 52 ng/mL 09/01/2020 SDSC Total 11:48 PM MECHANICAL ENGINEERING TEACHER Comment: Interpretation: 51-80 ng/mL (increased r isk [...] (Blood, 08/30/2020 8:58 AM 09/01/19 7:43 Venous) MECHANICAL ENGINEERING TEACHER AM MECHANICAL ENGINEERING TEACHER Espinoza Bailey M.D. LAB BLOOD ADD-ON Performing Organization Address City/State/ZIP Code Phon e Number [facility] [address] [place], [place] [address] [facility] [place] [address] Laboratory Medicine and Pathology [address] [place] (ABNORMAL) Parathyroid Hormone (PTH) (08/30/2020 8:58 AM MECHANICAL ENGINEERING TEACHER) athologist Signature Parathyroid 83 (H) 15 - 65 08/30/2020 [facility]UST Hormone (PTH), S pg/mL 6:22 PM MECHANICAL ENGINEERING TEACHER Comment: Biotin has been identified by the [facility] as a potential interfering substance. ??Higher concentr ations of biotin may be found in multivitamins, hair/nail supple ments, and workout supplements. ??If the result does not ma tc clinical observations, repeat testing after patient refrains fr om the use of supplements for at least 12 hours. Specimen Anatomical Collection Method Collection Time Receive d Time (Source) Location / / Volume Laterality Blood (Blood, 08/30/2020 8:58 AM 08/31/19 3:38 Venous) MECHANICAL ENGINEERING TEACHER PM MECHANICAL ENGINEERING TEACHER Espinoza Bailey M.D. LAB BLOOD ADD-ON Performing Organization Address City/State/ZIP Code Phon e Number [facility]- [address] [place] [address] [facility] [place] [address] [facility] [address] Ferritin (08/30/2020 8:58 AM MECHANICAL ENGINEERING TEACHER) athologist Signature Ferritin, S 208 31 - 409 08/30/2020 [place] mcg/L 10:54 AM MECHANICAL ENGINEERING TEACHER Comment: Biotin has been identified by the [facility] as a potential interfering substance. ??Higher concentr ations of biotin may be found in multivitamins, hair/nail supple ments, and workout supplements. ??If the result does not ma tc clinical observations, repeat testing after patient refrains fr om the use of supplements for at least 12 hours. Specimen Anatomical Collection Method Collection Time Receive d Time (Source) Location / / Volume Laterality Blood (Blood, 08/30/2020 8:58 AM 08/31/19 Venous) MECHANICAL ENGINEERING TEACHER 10:28 AM MECHANICAL ENGINEERING TEACHER Espinoza Bailey M.D. LAB BLOOD ADD-ON Performing Organization Address City/State/ZIP Code Phon e Number [facility]- [address] [place] [address] [place] [address] System in [place] [address] (ABNORMAL) Iron and Total Iron-Binding Capacity (08/30/2020 8:58 AM MECHANICAL ENGINEERING TEACHER) athologist Signature Iron 57 50 - 150 08/30/2020 [place] mcg/dL 5:53 PM MECHANICAL ENGINEERING TEACHER Total Iron 231 (L) 250 - 400 08/30/2020 [facility] Binding mcg/dL 5:53 PM MECHANICAL ENGINEERING TEACHER Capacity Percent 25 14 - 50 % 08/30/2020 [facility] Saturation 5:53 PM MECHANICAL ENGINEERING TEACHER Specimen Anatomical Collection Method Collection Time Receive d Time (Source) Location / / Volume Laterality Blood (Blood, 08/30/2020 8:58 AM 08/31/19 21 3:38 Venous) MECHANICAL ENGINEERING TEACHER PM MECHANICAL ENGINEERING TEACHER Espinoza Bailey M.D. LAB BLOOD ADD-ON Performing Organization Address City/State/ZIP Code Phon e Number [facility]- [address] [place] [address] [facility] [place] [address] [facility] [address] (ABNORMAL) CBC with Differential, Blood (08/30/2020 8:58 AM MECHANICAL ENGINEERING TEACHER) [facility] gist Method Time Signature Hemoglobin 9.8 (L) 13.2 - 08/30/2020 FB60 16.6 g/dL 9:08 AM MECHANICAL ENGINEERING TEACHER Hematocrit 29.5 (L) 38.3 - 08/30/2020 FB60 48.6 % 9:08 AM MECHANICAL ENGINEERING TEACHER Erythrocytes 3.16 (L) 4.35 - 08/30/2020 FB60 5.65 9:08 AM MECHANICAL ENGINEERING TEACHER x10(12)/L MCV 93.4 78.2 - 08/30/2020 FB60 97.9 fL 9:08 AM MECHANICAL ENGINEERING TEACHER RBC Distrib Width 12.8 11.8 - 08/30/2020 FB60 14.5 % 9:08 AM MECHANICAL ENGINEERING TEACHER Platelet Count 223 135 - 317 08/30/2020 FB60 x10(9)/L 9:08 AM MECHANICAL ENGINEERING TEACHER Leukocytes 3.1 (L) 3.4 - 9.6 08/30/2020 FB60 x10(9)/L 9:08 AM MECHANICAL ENGINEERING TEACHER Neutrophils 1.82 1.56 - 08/30/2020 FB60 6.45 9:08 AM MECHANICAL ENGINEERING TEACHER x10(9)/L Lymphocytes 0.73 (L) 0.95 - 08/30/2020 FB60 3.07 9:08 AM MECHANICAL ENGINEERING TEACHER x10(9)/L Monocytes 0.43 0.26 - 08/30/2020 FB60 0.81 9:08 AM MECHANICAL ENGINEERING TEACHER x10(9)/L Eosinophils 0.08 0.03 - 08/30/2020 FB60 0.48 9:08 AM MECHANICAL ENGINEERING TEACHER x10(9)/L Basophils 0.01 0.01 - 08/30/2020 FB60 0.08 9:08 AM MECHANICAL ENGINEERING TEACHER x10(9)/L Specimen Anatomical Collection Method Collection Time Receive d Time (Source) Location / / Volume Laterality Blood (Blood, 08/30/2020 8:58 AM 08/31/19 9:00 Venous) MECHANICAL ENGINEERING TEACHER AM MECHANICAL ENGINEERING TEACHER Espinoza Bailey M.D. LAB BLOOD ADD-ON Performing Organization Address City/State/ZIP Code Phon e Number [facility]- [address] [place] [address] [facility] [address] [place] [address] (ABNORMAL) Magnesium (08/30/2020 8:58 AM MECHANICAL ENGINEERING TEACHER) athologist Signature Magnesium, P 2.8 (H) 1.7 - 2.3 08/30/2020 [place] mg/dL 10:53 AM MECHANICAL ENGINEERING TEACHER Specimen Anatomical Collection Method Collection Time Receive d Time (Source) Location / / Volume Laterality Blood (Blood, 08/30/2020 8:58 AM 08/31/19 Venous) MECHANICAL ENGINEERING TEACHER 10:28 AM MECHANICAL ENGINEERING TEACHER Espinoza Bailey M.D. LAB BLOOD ADD-ON Performing Organization Address City/State/ZIP Code Phon e Number [facility]- [address] [place] [address] [place] [address] System in [place] [address] [place] [address] Lipid Panel (08/30/2020 8:58 AM MECHANICAL ENGINEERING TEACHER) P athologist Signature Cholesterol, 152 mg/dL 08/30/2020 [place] Total 10:53 AM MECHANICAL ENGINEERING TEACHER Comment: ----REFERENCE VALUE---- Desirable: < 200 Borderline high: 200 - 239 High: > or = 240 Triglycerides 149 mg/dL 08/30/2020 10:53 AM MECHANICAL ENGINEERING TEACHER OW [place] Comment: ----REFERENCE VALUE---- Normal: <150 Borderline high: 150-199 High: 200-499 Very high: > or =500 Cholesterol, HDL 43 >=40 mg/dL 08/30/2020 10:53 AM CS T [place] Calculated LDL 79 mg/dL 08/30/2020 10:53 AM MECHANICAL ENGINEERING TEACHER O YAO Comment: ----REFERENCE VALUE---- Desirable: <100 Above Desirable: 100-129 Borderline high: 130-159 High: 160-189 Very high: > or =190 Cholesterol, Non-HDL, Calculated 109 mg/dL 021 10:53 AM MECHANICAL ENGINEERING TEACHER [place] Comment: ----REFERENCE VALUE---- Desirable: <130 Above Desirable: 130-159 Borderline high: 160-189 High: 190-219 Very high: > or =220 Specimen Anatomical Collection Method Collection Time Receive d Time (Source) Location / / Volume Laterality Blood (Blood, 08/30/2020 8:58 AM 08/31/19 21 Venous) MECHANICAL ENGINEERING TEACHER 10:28 AM MECHANICAL ENGINEERING TEACHER Espinoza Bailey M.D. LAB BLOOD ADD-ON Performing Organization Address City/[facility]/ZIP Code Phon e Number [facility]- [address] [place] [address], [place] [address] [place] [address] System in [place] [address] [place] [address] (ABNORMAL) Albumin, Random, Urine (08/30/2020 8:58 AM MECHANICAL ENGINEERING TEACHER) Patholo gist Method Time Signature Microalbumin 728.0 mg/L 08/30/2020 [place] 12:06 PM MECHANICAL ENGINEERING TEACHER Creatinine 67 mg/dL 08/30/2020 [place] 11:11 AM MECHANICAL ENGINEERING TEACHER Albumin/Creatinin 1087 (H) <17 mg/g 08/30/2020 [place] e Ratio 12:06 PM MECHANICAL ENGINEERING TEACHER Specimen Anatomical Collection Method Collection Time Receive d Time (Source) Location / / Volume Laterality Urine (Urine, 08/30/2020 8:58 AM 08/31/19 21 Voided) MECHANICAL ENGINEERING TEACHER 10:28 AM MECHANICAL ENGINEERING TEACHER Espinoza Bailey M.D. LAB URINE ORDERABLES Performing Organization Address City/[facility]/ZIP Code Phon e Number [facility]- [address] [place] [address] [place] [address] (ABNORMAL) Urinalysis with Microscopic: Urine, Voided (08/30/2020 8:58 AM MECHANICAL ENGINEERING TEACHER) P athologist Signature Source Midstream 08/30/2020 FB60 9:06 AM MECHANICAL ENGINEERING TEACHER Clarity Clear Clear 08/30/2020 FB60 9:16 AM MECHANICAL ENGINEERING TEACHER Color Yellow 08/30/2020 FB60 9:16 AM MECHANICAL ENGINEERING TEACHER Comment: ----REFERENCE VALUE---- Colorless Yellow Bhakti Blood Small (A) Negative 08/30/2020 9:16 AM MECHANICAL ENGINEERING TEACHER FB60 Nitrite Negative Negative 08/30/2020 9:16 AM MECHANICAL ENGINEERING TEACHER FB60 Leukocyte Esterase Negative Negative 08/30/2020 9:16 AM CS T FB60 Protein >=300 (A) mg/dL 08/30/2020 9:16 AM MECHANICAL ENGINEERING TEACHER FB60 Comment: ----REFERENCE VALUE---- Negative Trace Glucose Negative Negative mg/dL 08/30/2020 9:16 AM MECHANICAL ENGINEERING TEACHER FB 60 Ketones, QI(U) Negative Negative mg/dL 08/30/2020 9:[address] FB60 Bilirubin Negative Negative 08/30/2020 9:16 AM MECHANICAL ENGINEERING TEACHER FB60 pH 7.0 5.0 - 8.0 08/30/2020 9:16 AM MECHANICAL ENGINEERING TEACHER FB60 Specific Napoleon 1.015 1.001 - 1.035 08/30/2020 9:16 AM MECHANICAL ENGINEERING TEACHER FB60 Urobilinogen 0.2 0.2 - 1.0 mg/dL 08/30/2020 9:16 AM CS T FB60 White Blood Cells None Seen /hpf 08/30/2020 9:16 AM MECHANICAL ENGINEERING TEACHER FB60 Comment: ----REFERENCE VALUE---- Males: 0-3 Females: 0-10 Unknown: 0-10 Red Blood Cells Occ-2 0 - 2 /hpf 08/30/2020 9:16 AM MECHANICAL ENGINEERING TEACHER FB60 Specimen Anatomical Collection Method Collection Time Receive d Time (Source) Location / / Volume Laterality Urine (Urine, 08/30/2020 8:58 AM 08/31/19 9:02 Voided) MECHANICAL ENGINEERING TEACHER AM MECHANICAL ENGINEERING TEACHER Espinoza Bailey M.D. LAB URINE ORDERABLES Performing Organization Address City/State/ZIP Code Phon e Number [facility]- [address] [place] [address] [facility] [address] [place] [address] System in [place] [address] (ABNORMAL) Cystatin C with Estimated GFR, S (08/30/2020 8:58 AM MECHANICAL ENGINEERING TEACHER) athologist Signature eGFR by 11 >60 08/31/2020 DAVE Cystatin C mL/min/BSA 7:48 AM MECHANICAL ENGINEERING TEACHER Comment: ----ADDITIONAL INFORMATION---- Cystatin C-based eGFR may differ substan tially from creatinine-based eGFR in patients with a bnormal muscle mass or acutely changing renal function. ??Pl ease interpret together with relevant clinical features. Cystatin C, S 4.39 (H) 0.77 - 1.42 mg/L 08/31/2020 7:48 AM MECHANICAL ENGINEERING TEACHER DAVE Specimen Anatomical Collection Method Collection Time Receive d Time (Source) Location / / Volume Laterality Blood (Blood, 08/30/2020 8:58 AM 09/01/19 7:07 Venous) MECHANICAL ENGINEERING TEACHER AM MECHANICAL ENGINEERING TEACHER Espinoza Bailey M.D. LAB BLOOD ADD-ON Performing Organization Address City/State/ZIP Code Phon e Number [facility] - [facility] [address] [place], [place] [address] [place] [address] Laboratories-[facility] [address] (ABNORMAL) Renal Function Panel (08/30/2020 8:58 AM MECHANICAL ENGINEERING TEACHER) Analysis Performed At Patho logist Time Signature Potassium, P 4.2 3.6 - 5.2 08/30/2020 [place] mmol/L 10:53 AM MECHANICAL ENGINEERING TEACHER Sodium, P 136 135 - 145 08/30/2020 [place] mmol/L 10:53 AM MECHANICAL ENGINEERING TEACHER Chloride, P 101 98 - 107 08/30/2020 [place] mmol/L 10:53 AM MECHANICAL ENGINEERING TEACHER Bicarbonate, P 26 22 - 29 08/30/2020 [place] mmol/L 10:53 AM MECHANICAL ENGINEERING TEACHER Anion Gap, P 9 7 - 15 08/30/2020 [place] 10:53 AM MECHANICAL ENGINEERING TEACHER BUN (Blood Urea 55 (H) 8 - 24 08/30/2020 [place] Nitrogen), P mg/dL 10:53 AM MECHANICAL ENGINEERING TEACHER Creatinine 3.58 (H) 0.74 - 08/30/2020 [place] 1.35 mg/dL 10:53 AM MECHANICAL ENGINEERING TEACHER eGFR-Black/Afri 19 (L) >=60 08/30/2020 [place] can Dutch mL/min/BSA 10:53 AM MECHANICAL ENGINEERING TEACHER Comment: ----ADDITIONAL INFORMATION---- Estimated GFR calculated using the 2009 CKD_EPI creatinine equation. eGFR Non-Black/ 17 (L) >=60 mL/min/BSA 08/30/2020 10:53 AM MECHANICAL ENGINEERING TEACHER [place] Dutch Comment: ----ADDITIONAL INFORMATION---- Estimated GFR calculated using the 2009 CKD_EPI creatinine equation. Calcium, Total, P 8.9 8.8 - 10.2 mg/dL 08/30/2020 10:5 3 AM MECHANICAL ENGINEERING TEACHER [place] Glucose, P 119 70 - 140 mg/dL 08/30/2020 10:53 AM MECHANICAL ENGINEERING TEACHER [place] Albumin, P 3.9 3.5 - 5.0 g/dL 08/30/2020 10:53 AM MECHANICAL ENGINEERING TEACHER [place] Phosphorus (Inorganic), P 4.2 2.5 - 4.5 mg/dL 08/31/19 4:59 PM MECHANICAL ENGINEERING TEACHER AUST Specimen Anatomical Collection Method Collection Time Receive d Time (Source) Location / / Volume Laterality Blood (Blood, 08/30/2020 8:58 AM 08/31/19 Venous) MECHANICAL ENGINEERING TEACHER 10:28 AM MECHANICAL ENGINEERING TEACHER Narrative [facility] - 08/30/2020 4:59 PM MECHANICAL ENGINEERING TEACHER Specimen Information: Specimen ID: [id number] Specimen Type: Blood Specimen Collection Start Date: 08/31/19 ??8:58 AM Specimen Received Date: 08/30/2020 10:28 AM Specimen ID: [id number] Specimen Type: Blood Specimen Collection Start Date: 08/31/19 ??8:58 AM Specimen Received Date: 08/30/2020 ??3:3 8 PM Espinoza Bailey M.D. LAB BLOOD ADD-ON Performing Organization Address City/State/ZIP Code Phon e Number [facility]- [address] [place] [address] [place] [address] System in [place] [address] [place] [address] [facility] [address] (ABNORMAL) Basic Metabolic Panel (06/29/2020 8:35 AM MECHANICAL ENGINEERING TEACHER) Analysis Performed At Patho logist Time Signature Potassium, P 3.9 3.6 - 5.2 06/29/2020 [place] mmol/L 10:53 AM MECHANICAL ENGINEERING TEACHER Sodium, P 137 135 - 145 06/29/2020 [place] mmol/L 10:53 AM MECHANICAL ENGINEERING TEACHER Chloride, P 101 98 - 107 06/29/2020 [place] mmol/L 10:53 AM MECHANICAL ENGINEERING TEACHER Bicarbonate, P 26 22 - 29 06/29/2020 [place] mmol/L 10:53 AM MECHANICAL ENGINEERING TEACHER Anion Gap, P 10 7 - 15 06/29/2020 [place] 10:53 AM MECHANICAL ENGINEERING TEACHER BUN (Blood Urea 53 (H) 8 - 24 06/29/2020 [place] Nitrogen), P mg/dL 10:53 AM MECHANICAL ENGINEERING TEACHER Creatinine 3.58 (H) 0.74 - 06/29/2020 [place] 1.35 mg/dL 10:53 AM MECHANICAL ENGINEERING TEACHER eGFR-Black/Afri 19 (L) >=60 06/29/2020 [place] can Dutch mL/min/BSA 10:53 AM MECHANICAL ENGINEERING TEACHER Comment: ----ADDITIONAL INFORMATION---- Estimated GFR calculated using the 2009 CKD_EPI creatinine equation. eGFR Non-Black/ 17 (L) >=60 mL/min/BSA 06/29/2020 10:53 AM MECHANICAL ENGINEERING TEACHER [place] Comment: ----ADDITIONAL INFORMATION---- Estimated GFR calculated using the 2009 CKD_EPI creatinine equation. Calcium, Total, P 9.3 8.8 - 10.2 mg/dL 06/29/2020 10:5 3 AM MECHANICAL ENGINEERING TEACHER [place] Glucose, P 108 70 - 140 mg/dL 06/29/2020 10:53 AM MECHANICAL ENGINEERING TEACHER [place] Specimen Anatomical Collection Method Collection Time Receive d Time (Source) Location / / Volume Laterality Blood (Blood, 06/29/2020 8:35 AM 06/29/19 21 Venous) MECHANICAL ENGINEERING TEACHER 10:20 AM MECHANICAL ENGINEERING TEACHER Espinoza Bailey M.D. LAB BLOOD ADD-ON Performing Organization Address City/State/ZIP Code Phon e Number [facility]- [address] [place] [address] [place] [address] System in [place] [address] (ABNORMAL) Albumin, Random, Urine (06/29/2020 8:34 AM MECHANICAL ENGINEERING TEACHER) [facility] Method Time Signature Microalbumin 834.0 mg/L 06/29/2020 [place] 11:35 AM MECHANICAL ENGINEERING TEACHER Creatinine 68 mg/dL 06/29/2020 [place] 11:14 AM MECHANICAL ENGINEERING TEACHER Albumin/Creatinin 1226 (H) <17 mg/g 06/29/2020 OW[place] e Ratio 11:35 AM MECHANICAL ENGINEERING TEACHER Specimen Anatomical Collection Method Collection Time Receive d Time (Source) Location / / Volume Laterality Urine (Urine, 06/29/2020 8:34 AM 06/29/19 21 Voided) MECHANICAL ENGINEERING TEACHER 10:20 AM MECHANICAL ENGINEERING TEACHER Espinoza Bailey M.D. LAB URINE ORDERABLES Performing Organization Address City/State/ZIP Code Phon e Number [facility]- [address] [place] [address] [place] [address] System in [place] [address] (ABNORMAL) Urinalysis with Microscopic: Urine, Voided (06/29/2020 8:34 AM MECHANICAL ENGINEERING TEACHER) P athologist Signature Source Midstream 06/29/2020 FB60 9:15 AM MECHANICAL ENGINEERING TEACHER Clarity Clear Clear 06/29/2020 FB60 9:15 AM MECHANICAL ENGINEERING TEACHER Color Yellow 06/29/2020 FB60 9:15 AM MECHANICAL ENGINEERING TEACHER Comment: ----REFERENCE VALUE---- Colorless Yellow Bhakti Blood Small (A) Negative 06/29/2020 9:15 AM MECHANICAL ENGINEERING TEACHER FB60 Nitrite Negative Negative 06/29/2020 9:15 AM MECHANICAL ENGINEERING TEACHER FB60 Leukocyte Esterase Negative Negative 06/29/2020 9:15 AM CS T FB60 Protein >=300 (A) mg/dL 06/29/2020 9:15 AM MECHANICAL ENGINEERING TEACHER FB60 Comment: ----REFERENCE VALUE---- Negative Trace Glucose Negative Negative mg/dL 06/29/2020 9:15 AM MECHANICAL ENGINEERING TEACHER FB 60 Ketones, QI(U) Negative Negative mg/dL 06/29/2020 9:[address] FB60 Bilirubin Negative Negative 06/29/2020 9:15 AM MECHANICAL ENGINEERING TEACHER FB60 pH 7.0 5.0 - 8.0 06/29/2020 9:15 AM MECHANICAL ENGINEERING TEACHER FB60 Specific [place] 1.015 1.001 - 1.035 06/29/2020 9:15 AM MECHANICAL ENGINEERING TEACHER FB60 Urobilinogen 0.2 0.2 - 1.0 mg/dL 06/29/2020 9:15 AM CS T FB60 White Blood Cells None Seen /hpf 06/29/2020 9:18 AM MECHANICAL ENGINEERING TEACHER FB60 Comment: ----REFERENCE VALUE---- Males: 0-3 Females: 0-10 Unknown: 0-10 Red Blood Cells Occ-2 0 - 2 /hpf 06/29/2020 9:18 AM MECHANICAL ENGINEERING TEACHER FB60 Dysmorphic Red Blood Cells <=25 <=25 % 06/29/2020 9: 18 AM MECHANICAL ENGINEERING TEACHER FB60 Specimen Anatomical Collection Method Collection Time Receive d Time (Source) Location / / Volume Laterality Urine (Urine, 06/29/2020 8:34 AM 06/29/19 8:51 Voided) MECHANICAL ENGINEERING TEACHER AM MECHANICAL ENGINEERING TEACHER Espinoza Bailey M.D. LAB URINE ORDERABLES Performing Organization Address City/State/ZIP Code Phon e Number [address] [place] [address] [facility] [place] [address] [address] documented in this encounter Visit Diagnoses Diagnosis Hypertension And Chronic Kidney Disease Stage 4 (HCC) - Primary Hypertension And Chronic Kidney Disease Stage 4 (HCC) documented in this encounter Additional Health Concerns Infection Onset Date Last Indicated Resolved Time COVID19 Pending 06/01/2020 06/02/2020 06/02/2020 9:38 PM MECHANICAL ENGINEERING TEACHER COVID19 Pending 08/24/2020 08/25/2020 08/26/2020 3:21 AM MECHANICAL ENGINEERING TEACHER Assessment Noted Time PHQ-9 Depression Total Score: 3 11/22/2019 7:34 AM CDT documented as of this encounter Care Teams Access Database Developer Relationship Specialty Start Date End Date Elsewhere, Pcp PCP - General Family Medicine 07/29/17 [facility] - Laboratory Medicine 04/12/20 [place] [id number] documented as of this encounter
--- OUTSIDE RECORDS SUMMARY | 2022-05-17 18:50 | XMS_ITS | Encounter Summary ---
:[address] 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 [address] [place] [phone] 05/23/2022 Clinical Admitting/Central Communication Scheduling 05/27/2022 Comprehensive Visit Orthopedic Surgery Markus Sams M.D., Ph.D. [address] [place] [phone] 05/29/2022 Office Visit Otorhinolaryngology Dex Matta APRN, C.N.P., M.S.N. [address] [place] [phone] 05/29/2022 Office Visit Otorhinolaryngology Nadeem Maradiaga, P.A.-C., M.S. [address] [place] [phone] 05/31/2022 Appointment Radiology Guilherme Matt MPAS, P.Murtaza.Marie., M.S. [address] [place] [phone] 06/05/2022 Appointment Laboratory Medicine Angélica Granger P.A.-C. [address] [place] [phone] 06/19/2022 Appointment Laboratory Medicine Angélica Granger P.A.-C. [address] [place] [phone] 07/03/2022 Appointment Laboratory Medicine Angélica Granger P.A.-C. [address] [place] [phone] 07/17/2022 Appointment Laboratory Medicine Angélica Granger P.A.-C. [address] [place] [phone] 07/31/2022 Appointment Laboratory Medicine Angélica Granger P.A.-C. [address] [place] [phone] 08/14/2022 Appointment Laboratory Medicine Angélica Granger P.A.-C. [address] [place] [phone] 08/28/2022 Appointment Laboratory Medicine Agnélica Granger P.A.-C. 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 DELIVERY SPECIALIST COVID19 Pending 10/19/2020 10/19/2020 10/19/2020 9:54 AM CDT COVID19 Pending 10/19/2020 10/19/2020 10/20/2020 11:57 AM CDT COVID19 Pending 10/30/2020 10/30/2020 10/30/2020 3:10 PM CDT COVID19 10/30/2020 10/30/2020 11/19/2020 4:45 AM CDT Assessment Noted Time PHQ-9 Depression Total Score: 3 11/22/2019 7:34 AM CDT documented as of this encounter Care Teams Student Finance Advisor Relationship Specialty Start Date End Date Elsewhere, Pcp PCP - General Family Medicine 07/29/17 [facility] - Laboratory Medicine 04/12/20 [place] [address] documented as of this encounter
--- OUTSIDE RECORDS SUMMARY | 2022-05-17 18:50 | XMS_ITS | Encounter Summary ---
:1955 Author Organization [facility] Address [address] [place] [address] Care Team Providers Name Role Phone Elsewhere, Pcp Primary Care Provider Unavailable Reason for Visit Outpatient (Routine) - Modified Order Specialty Diagnoses / Procedures Referred By Contact Refer red To Contact Diagnoses Transplant Liver (HCC) Medication Therapy Pool Technician Not Anticoagulant Angélica Granger PDemetriusA.-CDemetrius [facility] Procedures FL Esophagram Double Contrast FL Esophagram Single Contrast [address] [place] [address] Referral ID Status Reason Start Date Expiration Date Visits V isits Requested Authorized [id number] Modified 02/02/2020 02/01/2021 1 1 Order Encounter Details Date Type Department Care Team Description 05/22/2020 Hospital Encounter Department of Angélica Granger Transpl ant Liver (HCC); Radiology, Andreea Ross-CDemetrius Medication Therapy [facility] Not Anticoa [place] [address] [place] [address] [place] [phone] [place], [place] [phone] (Work) [phone] Social History Tobacco Use Types Packs/Day Years [...] 12/15/2021 organizations such as scientology groups, unions, [employer] or athletic groups, or school groups? 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 Primary fluticasone propionate Administer 1 spray 16 g 3 02/0605/23/2020 (Flonase Allergy Relief) into each nostril 50 mcg/actuation nasal daily as needed for sprayIndications: allergies. Transplant Liver (HCC) ipratropium (ATROVENT) Administer 2 sprays 0 07/201611/13/2020 [...] total) by mouth daily. NIFEdipine XL (PROCARDIA Take 3 tablets (90 [...] Laboratory Medicine Angélica Granger P.A.-C. [address] [place] [phone] 05/23/2022 Clinical Admitting/Central Communication Scheduling 05/27/2022 Comprehensive Visit Orthopedic Surgery Markus Sams M.D., Ph.D. [address] [place] [phone] 05/29/2022 Office Visit Otorhinolaryngology Dex Matta APRN, C.N.P., M.S.N. [address] [place] [address] [phone] 05/29/2022 Office Visit Otorhinolaryngology Nadeem Maradiaga, P.A.-C., M.S. [address] [place] [phone] 05/31/2022 Appointment Radiology Guilherme Matt MPAS, P.Murtaza.-Arley., M.S. [address] [place] [phone] 06/05/2022 Appointment Laboratory Medicine Angélica Granger P.A.-C. [address] [place] [phone] 06/19/2022 Appointment Laboratory Medicine Angélica Granger P.A.-C. [address] [place] [phone] 07/03/2022 Appointment Laboratory Medicine Angélica Granger P.A.-C. [address] [place] [phone] 07/17/2022 Appointment Laboratory Medicine Angélica Granger P.A.-C. [address] [place] [phone] 07/31/2022 Appointment Laboratory Medicine Angélica Granger P.A.-C. [address] [place] [phone] 08/14/2022 Appointment Laboratory Medicine Angélica Granger P.A.-C. [address] [place] [phone] 08/28/2022 Appointment Laboratory Medicine Angélica Granger P.A.-C. [address] [place] [phone] documented as of this encounter Procedures Procedure Name Priority Date/Time Associated Diagnosis Comme nts FL ESOPHAGRAM RAD - Routine 05/22/2020 2:56 Transplant Liver Result s for DOUBLE CONTRAST (most inpatients PM ENTOMOLOGY PROFESSOR (HCC) this procedure and all Medication Therapy are in th e outpatients) Pool Technician Not results Anticoagulant section. documented in this encounter Results FL Esophagram Double Contrast (05/22/2020 2:56 PM ENTOMOLOGY PROFESSOR) Anatomical Region Laterality Modality Gastro Intestinal, Abdominal RST LOS, Abdominal ARZ Digital Radiography LOS, Abdominal FLA LOS Specimen (Source) Anatomical Collection Method Collection Time Re ceived Time Location / / Volume Laterality 05/22/2020 3:00 PM ENTOMOLOGY PROFESSOR Impressions 05/22/2020 3:22 PM ENTOMOLOGY PROFESSOR Mild proximal escape. Otherwise normal e sophagram. Narrative 05/22/2020 3:22 PM ENTOMOLOGY PROFESSOR EXAM: ??FL ESOPHAGRAM DOUBLE CONTRAST COMPARISON: ??None [...] Otherwise normal e sophagram. Angélica Granger P.A.-C. IMG FLUOROSCOPY PROCEDURES documented in this encounter Visit Diagnoses Diagnosis Transplant Liver (HCC) Medication Therapy Mcfp Not Anticoa gulant documented in this encounter Administered Medications Inactive Administered Medications - up to 3 most recent administrations Medication Order MAR Action Action Date Dose Rate Site barium 60 % (w/v) suspension Given 05/22/2020 2:58 PM ENTOMOLOGY PROFESSOR 175 mL (LIQUID E-Z-PAQUE) Code/trauma/sedation medication, Starting on Fri05/22/20 at 1458 barium 98 % oral powder for suspension Given 05/22/2020 2:57 PM ENTOMOLOGY PROFESSOR 135 mL (E-Z-HD) Code/trauma/sedation medication, Starting on Fri05/22/20 at 1457 sodium bicarbonate-citric acid-simethicone Given 05/22 2:58 PM ENTOMOLOGY PROFESSOR 1 packet effervescent packet (E-Z -GAS) oral, Code/trauma/sedation medication, Starting on Fri05/22/20 at 1458 documented in this encounter Additional Health Concerns Assessment Noted Time PHQ-9 Depression Total Score: 3 11/22/2019 7:34 AM CDT documented as of this encounter Care Teams Ceo Ziff Davis Relationship Specialty Start Date End Date Elsewhere, Pcp PCP - General Family Medicine 07/29/17 [facility] - Laboratory Medicine 04/12/[address] [phone] documented as of this encounter
--- OUTSIDE RECORDS SUMMARY | 2022-05-17 18:51 | XMS_ITS | Encounter Summary ---
:1955 Author Organization [facility] Address [address] [place] [address] Care Team Providers Name Role Phone Elsewhere, Pcp Primary Care Provider Unavailable Encounter Details Date Type Department Care Team Description 05/02/2020 Hospital Encounter Department of [facility], Chronic Kidney Disease Stage 4 Glomerular Filtration Rate 15-29 (HCC); Laboratory Medicine Sada Hobson Hypertension And Chronic Kidney Disease Stage 4 (HCC) in [address] [place] [address] [place], [place] [phone] (Work) [phone] Social History Tobacco Use Types Packs/Day Years [...] Date Recorded Male 05/16/2020 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 albuterol inhaler Inhale 1-2 puffs 1 Inhaler [...] needed for sprayIndications: allergies. Transplant Liver (HCC) glucosamine-chondroitin Take 4 capsules by 0 05/22/2020 [...] (HCC), daily. Medication Therapy Residential Not Anticoagulant tacrolimus (PROGRAF) 0.5 Take 2 [...] Laboratory Medicine Angélica Granger P.A.-C. [address] [place] [phone] 05/23/2022 Clinical Admitting/Central Communication Scheduling 05/27/2022 Comprehensive Visit Orthopedic Surgery Markus Sams M.D., Ph.D. [address] [place] [phone] 05/29/2022 Office Visit Otorhinolaryngology Dex Matta APRN, C.N.P., M.S.N. [address] [place] [phone] 05/29/2022 Office Visit Otorhinolaryngology Nadeem Maradiaga, P.A.-C., M.S. [address] [place] [phone] 05/31/2022 Appointment Radiology Guilherme Matt MPAS, P.A.-C., M.S. [address] [place] [phone] 06/05/2022 Appointment Laboratory Medicine Angélica Granger P.A.-C. [address] [place] [phone] 06/19/2022 Appointment Laboratory Medicine Angélica Granger P.A.-C. [address] [place] [phone] 07/03/2022 Appointment Laboratory Medicine Angélica Granger P.A.-C. [address] [place] [phone] 07/17/2022 Appointment Laboratory Medicine Angélica Granger P.A.-C. [address] [place] [phone] 07/31/2022 Appointment Laboratory Medicine Angélica Granger P.A.-C. [address] [place] [phone] 08/14/2022 Appointment Laboratory Medicine Angélica Granger P.A.-C. [address] [place] [phone] 08/28/2022 Appointment Laboratory Medicine Angélica Granger P.A.-C. [address] [place] [phone] documented as of this encounter Procedures Procedure Name Priority Date/Time Associated Comments Diagnosis LIPID PANEL, S Routine 05/02/2020 10:40 Chronic Kidney Results for this AM JAVA WEB USER INTERFACE DEVELOPER Disease Stage 4 procedure ar e in Glomerular the results Filtration Rate section. ([facility]) RENAL FUNCTION PANEL, Routine 05/02/2020 10:40 Chronic Kidney Results for this S AM JAVA WEB USER INTERFACE DEVELOPER Disease Stage 4 procedure ar e in Glomerular the results Filtration Rate section. ([facility]) CYSTATIN C WITH EGFR Routine 05/02/2020 10:40 Chronic Kidney R esults for this AM JAVA WEB USER INTERFACE DEVELOPER Disease Stage 4 procedure ar e in Glomerular the results Filtration Rate section. ([facility]) IRON AND TOT Routine 05/02/2020 10:40 Chronic Kidney Results f or this IRON-BINDING AM JAVA WEB USER INTERFACE DEVELOPER Disease Stage 4 procedure ar e in CAPACITY, S/P Glomerular the results Filtration Rate section. ([facility]) 25-HYDROXYVITAMIN D2 Routine 05/02/2020 10:40 Chronic Kidney R esults for this AND D3, S AM JAVA WEB USER INTERFACE DEVELOPER Disease Stage 4 procedure ar e in Glomerular the results Filtration Rate section. ([facility]) CBC WITH Routine 05/02/2020 10:40 Chronic Kidney Results f or this DIFFERENTIAL, B AM JAVA WEB USER INTERFACE DEVELOPER Disease Stage 4 procedure are in Glomerular the results Filtration Rate section. ([facility]) URIC ACID, S/P Routine 05/02/2020 10:40 Chronic Kidney Results for this AM JAVA WEB USER INTERFACE DEVELOPER Disease Stage 4 procedure ar e in Glomerular the results Filtration Rate section. ([facility]) PARATHYROID HORMONE Routine 05/02/2020 10:40 Chronic Kidney Re sults for this (PTH), S AM JAVA WEB USER INTERFACE DEVELOPER Disease Stage 4 procedure ar e in Glomerular the results Filtration Rate section. ([facility]) MAGNESIUM, S Routine 05/02/2020 10:40 Chronic Kidney Results f or this AM JAVA WEB USER INTERFACE DEVELOPER Disease Stage 4 procedure ar e in Glomerular the results Filtration Rate section. ([facility]) FERRITIN, S Routine 05/02/2020 10:40 Chronic Kidney Results f or this AM JAVA WEB USER INTERFACE DEVELOPER Disease Stage 4 procedure ar e in Glomerular the results Filtration Rate section. ([facility]) documented in this encounter Results 25-Hydroxyvitamin D2 and D3 (05/02/2020 10:40 AM JAVA WEB USER INTERFACE DEVELOPER) P athologist Signature 25-Hydroxy D2 <4.0 ng/mL 05/04/2020 SDSC 12:47 PM JAVA WEB USER INTERFACE DEVELOPER 25-Hydroxy D3 48 ng/mL 05/04/2020 SDSC 12:47 PM JAVA WEB USER INTERFACE DEVELOPER 25-Hydroxy D 48 ng/mL 05/04/2020 [facility] Total 12:47 PM JAVA WEB USER INTERFACE DEVELOPER Comment: ----REFERENCE VALUE---- 25-HYDROXY D TOTAL (D2+D3) [...] (Blood, 05/02/2020 10:40 05/03/2020 7:45 Venous) AM JAVA WEB USER INTERFACE DEVELOPER AM JAVA WEB USER INTERFACE DEVELOPER Joce Bailey M.D. LAB BLOOD ADD-ON Performing Organization Address City/State/ZIP Code Phon e Number [facility] [address] [place], [place] [address] [place] [address] [place] [address] Laboratory Medicine and Pathology [address] [place] [address] Dr. [place] (ABNORMAL) Uric Acid (05/02/2020 10:40 AM JAVA WEB USER INTERFACE DEVELOPER) P athologist Signature Uric Acid, P 8.7 (H) 3.7 - 8.0 05/02/2020 [place] mg/dL 4:17 PM JAVA WEB USER INTERFACE DEVELOPER Specimen Anatomical Collection Method Collection Time Receive d Time (Source) Location / / Volume Laterality Blood (Blood, 05/02/2020 10:40 05/02/2020 4:04 Venous) AM JAVA WEB USER INTERFACE DEVELOPER PM JAVA WEB USER INTERFACE DEVELOPER Joce Bailey M.D. LAB BLOOD ADD-ON Performing Organization Address City/State/ZIP Code Phon e Number - [address] [place] [address] [facility] [place], [place] [address] [place] [address] (ABNORMAL) Parathyroid Hormone (PTH) (05/02/2020 10:40 AM JAVA WEB USER INTERFACE DEVELOPER) Analysis Performed At Patho logist Time Signature Parathyroid 135 (H) 15 - 65 05/02/2020 [place] Hormone (PTH), S pg/mL 5:07 PM JAVA WEB USER INTERFACE DEVELOPER Comment: Biotin has been identified by the [facility] as a potential interfering substance. ??Higher concentr ations of biotin may be found in multivitamins, hair/nail supple ments, and workout supplements. ??If the result does not ma [facility] clinical observations, repeat testing after patient refrains fr om the use of supplements for at least 12 hours. Specimen Anatomical Collection Method Collection Time Receive d Time (Source) Location / / Volume Laterality Blood (Blood, 05/02/2020 10:40 05/02/2020 4:04 Venous) AM JAVA WEB USER INTERFACE DEVELOPER PM JAVA WEB USER INTERFACE DEVELOPER Joce Bailey M.D. LAB BLOOD ADD-ON Performing Organization Address City/State/ZIP Code Phon e Number - [address] [place] [address] [facility] [place] [address] [facility] [address] (ABNORMAL) Magnesium (05/02/2020 10:40 AM JAVA WEB USER INTERFACE DEVELOPER) athologist Signature Magnesium, P 2.9 (H) 1.7 - 2.3 05/02/2020 [place] mg/dL 2:28 PM JAVA WEB USER INTERFACE DEVELOPER Specimen Anatomical Collection Method Collection Time Receive d Time (Source) Location / / Volume Laterality Blood (Blood, 05/02/2020 10:40 05/02/2020 1:49 Venous) AM JAVA WEB USER INTERFACE DEVELOPER PM JAVA WEB USER INTERFACE DEVELOPER Joce Bailey M.D. LAB BLOOD ADD-ON Performing Organization Address City/State/ZIP Code Phon e Number - [address] [place] [address] [facility] [address] System in [place] [address] Lipid Panel (05/02/2020 10:40 AM JAVA WEB USER INTERFACE DEVELOPER) athologist Signature Cholesterol, 163 mg/dL 05/02/2020 [facility] Total 2:28 PM JAVA WEB USER INTERFACE DEVELOPER Comment: ----REFERENCE VALUE---- Desirable: < 200 Borderline high: 200 - 239 High: > or = 240 Triglycerides 145 mg/dL 05/02/2020 2:28 PM JAVA WEB USER INTERFACE DEVELOPER O[place] T Comment: ----REFERENCE VALUE---- Normal: <150 Borderline high: 150-199 High: 200-499 Very high: > or =500 Cholesterol, HDL 42 >=40 mg/dL 05/02/2020 2:28 PM JAVA WEB USER INTERFACE DEVELOPER [facility] Calculated LDL 92 mg/dL 05/02/2020 2:28 PM JAVA WEB USER INTERFACE DEVELOPER OW AT Comment: ----REFERENCE VALUE---- Desirable: <100 Above Desirable: 100-129 Borderline high: 130-159 High: 160-189 Very high: > or =190 Cholesterol, Non-HDL, Calculated 121 mg/dL 020 2:28 PM JAVA WEB USER INTERFACE DEVELOPER [facility] Comment: ----REFERENCE VALUE---- Desirable: <130 Above Desirable: 130-159 Borderline high: 160-189 High: 190-219 Very high: > or =220 Specimen Anatomical Collection Method Collection Time Receive d Time (Source) Location / / Volume Laterality Blood (Blood, 05/02/2020 10:40 05/02/2020 1:49 Venous) AM JAVA WEB USER INTERFACE DEVELOPER PM JAVA WEB USER INTERFACE DEVELOPER Joce Bailey M.D. LAB BLOOD ADD-ON Performing Organization Address City/State/ZIP Code Phon e Number [facility]- [address] [place] [address] [place] [address] System in [place] [address] (ABNORMAL) Cystatin C with Estimated GFR, S (05/02/2020 10:40 AM JAVA WEB USER INTERFACE DEVELOPER) P athologist Signature eGFR by 13 >60 05/03/2020 [facility] Cystatin C mL/min/BSA 7:49 AM JAVA WEB USER INTERFACE DEVELOPER Comment: ----ADDITIONAL INFORMATION---- Cystatin C-based eGFR may differ substan tially from creatinine-based eGFR in patients with a bnormal muscle mass or acutely changing renal function. ??Pl ease interpret together with relevant clinical features. Cystatin C, S 3.77 (H) 0.77 - 1.42 mg/L 05/03/2020 7:49 AM JAVA WEB USER INTERFACE DEVELOPER DAVE Specimen Anatomical Collection Method Collection Time Receive d Time (Source) Location / / Volume Laterality Blood (Blood, 05/02/2020 10:40 05/03/2020 6:57 Venous) AM JAVA WEB USER INTERFACE DEVELOPER AM JAVA WEB USER INTERFACE DEVELOPER Joce Bailey M.D. LAB BLOOD ADD-ON Performing Organization Address City/State/ZIP Code Phon e Number [facility] - [address] [place], [place] [address] [place] [address] [facility] [address] (ABNORMAL) Renal Function Panel (05/02/2020 10:40 AM JAVA WEB USER INTERFACE DEVELOPER) Analysis Performed At Patho logist Time Signature Potassium, P 3.6 3.6 - 5.2 05/02/2020 [place] mmol/L 2:28 PM JAVA WEB USER INTERFACE DEVELOPER Sodium, P 136 135 - 145 05/02/2020 [place] mmol/L 2:28 PM JAVA WEB USER INTERFACE DEVELOPER Chloride, P 99 98 - 107 05/02/2020 [place] mmol/L 2:28 PM JAVA WEB USER INTERFACE DEVELOPER Bicarbonate, P 26 22 - 29 05/02/2020 [place] mmol/L 2:28 PM JAVA WEB USER INTERFACE DEVELOPER Anion Gap, P 11 7 - 15 05/02/2020 [facility] 2:28 PM JAVA WEB USER INTERFACE DEVELOPER BUN (Blood Urea 69 (H) 8 - 24 05/02/2020 [facility] Nitrogen), P mg/dL 2:28 PM JAVA WEB USER INTERFACE DEVELOPER Creatinine 3.22 (H) 0.74 - 05/02/2020 [facility] 1.35 mg/dL 2:28 PM JAVA WEB USER INTERFACE DEVELOPER eGFR-Black/Afri 22 (L) >=60 05/02/2020 [facility] can Citizen [place] mL/min/BSA 2:28 PM JAVA WEB USER INTERFACE DEVELOPER Comment: ----ADDITIONAL INFORMATION---- Estimated GFR calculated using the 2009 CKD_EPI creatinine equation. eGFR Non-Black/ 19 (L) >=60 mL/min/BSA 05/02/2020 2:28 PM JAVA WEB USER INTERFACE DEVELOPER [place] Comment: ----ADDITIONAL INFORMATION---- Estimated GFR calculated using the 2009 CKD_EPI creatinine equation. Calcium, Total, P 8.5 (L) 8.8 - 10.2 mg/dL 05/02/2020 2:28 PM JAVA WEB USER INTERFACE DEVELOPER [place] Glucose, P 189 (H) 70 - 140 mg/dL 05/02/2020 2:28 PM JAVA WEB USER INTERFACE DEVELOPER O YAO Albumin, P 3.9 3.5 - 5.0 g/dL 05/02/2020 2:28 PM JAVA WEB USER INTERFACE DEVELOPER O YAO Phosphorus (Inorganic), P 4.1 2.5 - 4.5 mg/dL 05/02/20 20 4:17 PM JAVA WEB USER INTERFACE DEVELOPER [place] Specimen Anatomical Collection Method Collection Time Receive d Time (Source) Location / / Volume Laterality Blood (Blood, 05/02/2020 10:40 05/02/2020 1:49 Venous) AM JAVA WEB USER INTERFACE DEVELOPER PM JAVA WEB USER INTERFACE DEVELOPER Narrative - [facility] - 05/02/2020 4:17 PM JAVA WEB USER INTERFACE DEVELOPER Specimen Information: Specimen ID: [id number] Specimen Type: Blood Specimen Collection Start Date: 10:40 AM Specimen Received Date: 05/02/2020 ??1: 49 PM Specimen ID: [id number] Specimen Type: Blood Specimen Collection Start Date: 10:40 AM Specimen Received Date: 05/02/2020 ??4: 04 PM Joce Bailey M.D. LAB BLOOD ADD-ON Performing Organization Address City/State/ZIP Code Phon e Number - [address] [place] [address] [place] [address] System in [place] [address] [place] [address] [facility] [address] Ferritin (05/02/2020 10:40 AM JAVA WEB USER INTERFACE DEVELOPER) athologist Signature Ferritin, S 167 31 - 409 05/02/2020 [place] mcg/L 2:19 PM JAVA WEB USER INTERFACE DEVELOPER Comment: Biotin has been identified by the [facility] as a potential interfering substance. ??Higher concentr ations of biotin may be found in multivitamins, hair/nail supple ments, and workout supplements. ??If the result does not ma [facility] clinical observations, repeat testing after patient refrains fr om the use of supplements for at least 12 hours. Specimen Anatomical Collection Method Collection Time Receive d Time (Source) Location / / Volume Laterality Blood (Blood, 05/02/2020 10:40 05/02/2020 1:49 Venous) AM JAVA WEB USER INTERFACE DEVELOPER PM JAVA WEB USER INTERFACE DEVELOPER Joce Bailey M.D. LAB BLOOD ADD-ON Performing Organization Address City/[facility]/ZIP Code Phon e Number - [address] [place] [address] [place] [address] System in [place] [address] Iron and Total Iron-Binding Capacity (05/02/2020 10:40 AM JAVA WEB USER INTERFACE DEVELOPER) athologist Signature Iron 115 50 - 150 05/02/2020 [facility] mcg/dL 4:18 PM JAVA WEB USER INTERFACE DEVELOPER Total Iron 255 250 - 400 05/02/2020 [facility] Binding Capacity mcg/dL 4:18 PM JAVA WEB USER INTERFACE DEVELOPER Percent 45 14 - 50 % 05/02/2020 [facility] Saturation 4:18 PM JAVA WEB USER INTERFACE DEVELOPER Specimen Anatomical Collection Method Collection Time Receive d Time (Source) Location / / Volume Laterality Blood (Blood, 05/02/2020 10:40 05/02/2020 4:04 Venous) AM JAVA WEB USER INTERFACE DEVELOPER PM JAVA WEB USER INTERFACE DEVELOPER Joce Bailey M.D. LAB BLOOD ADD-ON Performing Organization Address City/State/ZIP Code Phon e Number [facility]- [address] [place] [address] [facility] [place] [address] [facility] [address] (ABNORMAL) CBC with Differential, Blood (05/02/2020 10:40 AM JAVA WEB USER INTERFACE DEVELOPER) [facility] gist Method Time Signature Hemoglobin 11.5 (L) 13.2 - 05/02/2020 FB60 16.6 g/dL 10:45 AM JAVA WEB USER INTERFACE DEVELOPER Hematocrit 34.9 (L) 38.3 - 05/02/2020 FB60 48.6 % 10:45 AM JAVA WEB USER INTERFACE DEVELOPER Erythrocytes 3.88 (L) 4.35 - 05/02/2020 FB60 5.65 10:45 AM JAVA WEB USER INTERFACE DEVELOPER x10(12)/L MCV 89.9 78.2 - 05/02/2020 FB60 97.9 fL 10:45 AM JAVA WEB USER INTERFACE DEVELOPER RBC Distrib Width 13.0 11.8 - 05/02/2020 FB60 14.5 % 10:45 AM JAVA WEB USER INTERFACE DEVELOPER Platelet Count 206 135 - 317 05/02/2020 FB60 x10(9)/L 10:45 AM JAVA WEB USER INTERFACE DEVELOPER Leukocytes 3.6 3.4 - 9.6 05/02/2020 FB60 x10(9)/L 10:45 AM JAVA WEB USER INTERFACE DEVELOPER Neutrophils 1.95 1.56 - 05/02/2020 FB60 6.45 10:45 AM JAVA WEB USER INTERFACE DEVELOPER x10(9)/L Lymphocytes 1.04 0.95 - 05/02/2020 FB60 3.07 10:45 AM JAVA WEB USER INTERFACE DEVELOPER x10(9)/L Monocytes 0.45 0.26 - 05/02/2020 FB60 0.81 10:45 AM JAVA WEB USER INTERFACE DEVELOPER x10(9)/L Eosinophils 0.10 0.03 - 05/02/2020 FB60 0.48 10:45 AM JAVA WEB USER INTERFACE DEVELOPER x10(9)/L Basophils 0.01 0.01 - 05/02/2020 FB60 0.08 10:45 AM JAVA WEB USER INTERFACE DEVELOPER x10(9)/L Specimen Anatomical Collection Method Collection Time Receive d Time (Source) Location / / Volume Laterality Blood (Blood, 05/02/2020 10:40 05/02/2020 Venous) AM JAVA WEB USER INTERFACE DEVELOPER 10:40 AM JAVA WEB USER INTERFACE DEVELOPER Joce Bailey M.D. LAB BLOOD ADD-ON Performing Organization Address City/State/ZIP Code Phon e Number - [address] [place] [address] [facility] [address] [place] [address] System in [address] documented in this encounter Visit Diagnoses Diagnosis Chronic Kidney Disease Stage 4 Glomerula r Filtration Rate 15-29 (HCC) Hypertension And Chronic Kidney Disease Stage 4 (HCC) documented in this encounter Additional Health Concerns Assessment Noted Time PHQ-9 Depression Total Score: 3 11/22/2019 7:34 AM CDT documented as of this encounter Care Teams Shuttleless Loom Weaver Relationship Specialty Start Date End Date Elsewhere, Pcp PCP - General Family Medicine 07/29/17 [facility] - Laboratory Medicine 04/12/[address] [address] documented as of this encounter
--- OUTSIDE RECORDS SUMMARY | 2022-05-17 18:51 | XMS_ITS | Encounter Summary ---
:1955 Author Organization [facility] Address [address] [place] [address] Care Team Providers Name Role Phone Elsewhere, Pcp Primary Care Provider Unavailable Reason for Visit Reason Comments Med Refill Encounter Details Date Type Department Care Team Description 05/15/2020 Refill Division of Nephrology and Florence Wren M.D., Med Refill Hypertension in [place], .D. 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 Forwarded to nurses. TRIC MOTOR REPAIR SUPERVISOR documented in this encounter Plan of Treatment Upcoming Encounters Date Type Specialty Care Team Description 05/22/2022 Appointment Laboratory Medicine Angélica Granger, P.A.-C. [address] [place] [phone] 05/23/2022 Clinical Admitting/Central Communication Scheduling 05/27/2022 Comprehensive Visit Orthopedic Surgery Markus Sams M.D., Ph.D. [address] [place] [phone] 05/29/2022 Office Visit Otorhinolaryngology Dex Matta APRN, C.N.P., M.S.N. [address] [place] [phone] 05/29/2022 Office Visit Otorhinolaryngology Nadeem Maradiaga, P.A.-C., M.S. [address] [place] [phone] 05/31/2022 Appointment Radiology Guilherme Matt MPAS, P.A.-C., M.S. [address] [place] [phone] 06/05/2022 Appointment Laboratory Medicine Angélica Granger P.A.-C. [address] [place] [phone] 06/19/2022 Appointment Laboratory Medicine Angélica Granger P.A.-C. [address] [place] [phone] 07/03/2022 Appointment Laboratory Medicine Angélica Granger P.A.-C. [address] [place] [phone] 07/17/2022 Appointment Laboratory Medicine Angélica Granger P.A.-C. [address] [place] [phone] 07/31/2022 Appointment Laboratory Medicine Angélica Granger P.A.-C. [address] [place] [phone] 08/14/2022 Appointment Laboratory Medicine Angélica Granger P.A.-C. [address] [place] [phone] 08/28/2022 Appointment Laboratory Medicine Angélica Granger P.A.-C. [address] [place] [phone] documented as of this encounter Visit Diagnoses Diagnosis Chronic Kidney Disease Stage 4 Glomerula r Filtration Rate 15-29 (HCC) documented in this encounter Additional Health Concerns Assessment Noted Time PHQ-9 Depression Total Score: 3 11/22/2019 7:34 AM CDT documented as of this encounter Care Teams Galley Cook Relationship Specialty Start Date End Date Elsewhere, Pcp PCP - General Family Medicine 07/29/17 [facility] - Laboratory Medicine 04/12/20 [place] [address] documented as of this encounter
--- OUTSIDE RECORDS SUMMARY | 2022-05-17 18:51 | XMS_ITS | Encounter Summary ---
:1955 Author Organization [facility] Address [address] [place] [address] Care Team Providers Name Role Phone Elsewhere, Pcp Primary Care Provider Unavailable Encounter Details Date Type Department Care Team Description 05/19/2020 Hospital Encounter Department of [facility], Chronic Kidney Laboratory Medicine Sada Hobson Disease Stage [address] Filtration Rate [address] [phone] 15-29 (FORMERLY [facility]) [place], [place] [phone] [address] (Work) [phone] Social History Tobacco Use Types Packs/Day Years [...] Date Recorded Male 05/16/2020 4:27 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 amLODIPine (NORVASC) 10 Take 1 tablet (10 90 tablet 3 05/1705/22/2020 mg tabletIndications: mg total) by mouth Chronic Kidney Disease daily. Stage 4 Glomerular Filtration Rate 15-29 (HCC) atorvastatin (LIPITOR) Take 1 tablet (10 90 tablet 3 201903/05/2021 10 mg tablet mg total) by mouth daily. calcium carb/magnesium Take 2 tablets by 0 10/13/2021 oxid/D3 (CALCIUM mouth 2 (two) times MAGNESIUM + D ORAL) a day. Total of 700 mg of calcium, 350 mg of magnesium, and 400 IU of vitamin D cholecalciferol (VITAMIN Take 1 tablet by 0 03/14 /2014 11/13/2020 D3) 2,000 Unit tablet mouth daily. cholecalciferol [...] as needed for sprayIndications: allergies. Transplant Liver ([facility]) glucosamine-chondroitin Take 4 capsules by 0 05/22/2020 [facility] daily. Medication Therapy Senior Care Not Anticoagulant tacrolimus (PROGRAF) 0.5 Take 2 [...] Laboratory Medicine Angélica Granger P.A.-C. [address] [place] [phone] 05/23/2022 Clinical Admitting/Central Communication Scheduling 05/27/2022 Comprehensive Visit Orthopedic Surgery Markus Sams M.D., Ph.D. [address] [place] [phone] 05/29/2022 Office Visit Otorhinolaryngology Dex Matta APRN, C.N.P., M.S.N. [address] [place] [phone] 05/29/2022 Office Visit Otorhinolaryngology Nadeem Maradiaga, P.A.-C., M.S. [address] [place] [phone] 05/31/2022 Appointment Radiology Guilherme Matt, RASTA, P.A.-C., M.S. [address] [place] [phone] 06/05/2022 Appointment Laboratory Medicine Angélica Granger P.A.-C. [address] [place] [phone] 06/19/2022 Appointment Laboratory Medicine Angélica Granger P.A.-C. [address] [place] [phone] 07/03/2022 Appointment Laboratory Medicine Angélica Granger P.A.-C. [address] [place] [phone] 07/17/2022 Appointment Laboratory Medicine Angélica Granger P.A.-C. [address] [place] [phone] 07/31/2022 Appointment Laboratory Medicine Angélica Granger P.A.-C. [address] [place] [phone] 08/14/2022 Appointment Laboratory Medicine Angélica Granger P.A.-C. [address] [place] [phone] 08/28/2022 Appointment Laboratory Medicine Angélica Granger P.A.-C. [address] [place] [phone] documented as of this encounter Procedures Procedure Name Priority Date/Time Associated Comments Diagnosis ALBUMIN, RANDOM, U Routine 05/19/2020 9:29 AM Chronic Kidney R esults for this RUBBER TESTER Disease Stage 4 procedure ar e in Glomerular the results Filtration Rate section. (HCC) URINALYSIS WITH Routine 05/19/2020 9:29 AM Chronic Kidney Resu lts for this MICROSCOPIC RUBBER TESTER Disease Stage 4 procedure ar e in Glomerular the results Filtration Rate section. (HCC) documented in this encounter Results (ABNORMAL) Albumin, Random, Urine (05/19/2020 9:29 AM RUBBER TESTER) [facility] Method Time Signature Microalbumin 1341.0 mg/L 05/19/2020 OWAT 12:05 PM RUBBER TESTER Creatinine 87 mg/dL 05/19/2020 OWAT 11:01 AM RUBBER TESTER Albumin/Creatinin 1541 (H) <17 mg/g 05/19/2020 OWAT e Ratio 12:05 PM RUBBER TESTER Specimen Anatomical Collection Method Collection Time Receive d Time (Source) Location / / Volume Laterality Urine (Urine, 05/19/2020 9:29 AM 05/19/20 20 Voided) RUBBER TESTER 10:27 AM RUBBER TESTER Joce Bailey M.D. LAB URINE ORDERABLES Performing Organization Address City/State/ZIP Code Phon e Number [facility]- [address] [place] [address] [place] [address] System in [place] [address] (ABNORMAL) Urinalysis with Microscopic: Urine, Voided (05/19/2020 9:29 AM RUBBER TESTER) P athologist Signature Source Void 05/19/2020 9:37 FB60 AM RUBBER TESTER Clarity Clear Clear 05/19/2020 9:45 FB60 AM RUBBER TESTER Color Yellow 05/19/2020 9:45 FB60 AM RUBBER TESTER Comment: ----REFERENCE VALUE---- Colorless Yellow Bhakti Blood Small (A) Negative 05/19/2020 9:45 AM RUBBER TESTER FB60 Nitrite Negative Negative 05/19/2020 9:45 AM RUBBER TESTER FB60 Leukocyte Esterase Negative Negative 05/19/2020 9:45 AM CS T FB60 Protein >=300 (A) mg/dL 05/19/2020 9:45 AM RUBBER TESTER FB60 Comment: ----REFERENCE VALUE---- Negative Trace Glucose Negative Negative mg/dL 05/19/2020 9:45 AM RUBBER TESTER FB 60 Ketones, QI(U) Negative Negative mg/dL 05/19/2020 9:[address] FB60 Bilirubin Negative Negative 05/19/2020 9:45 AM RUBBER TESTER FB60 pH 7.0 5.0 - 8.0 05/19/2020 9:45 AM RUBBER TESTER FB60 Specific [place] 1.020 1.001 - 1.035 05/19/2020 9:45 AM RUBBER TESTER FB60 Urobilinogen 0.2 0.2 - 1.0 mg/dL 05/19/2020 9:45 AM CS T FB60 White Blood Cells Occ-3 /hpf 05/19/2020 9:45 AM RUBBER TESTER FB60 Comment: ----REFERENCE VALUE---- Males: 0-3 Females: 0-10 Unknown: 0-10 Red Blood Cells 3-10 (A) 0 - 2 /hpf 05/19/2020 9:45 AM RUBBER TESTER FB60 Dysmorphic Red Blood Cells <=25 <=25 % 05/19/2020 9: 45 AM RUBBER TESTER FB60 Specimen Anatomical Collection Method Collection Time Receive d Time (Source) Location / / Volume Laterality Urine (Urine, 05/19/2020 9:29 AM 05/19/20 20 9:29 Voided) RUBBER TESTER AM RUBBER TESTER Joce Bailey M.D. LAB URINE ORDERABLES Performing Organization Address City/State/ZIP Code Phon e Number [address] [place] [address] [place] [address] LAB FB[address] [place] [address] System [address] documented in this encounter Visit Diagnoses Diagnosis Chronic Kidney Disease Stage 4 Glomerula r Filtration Rate 15-29 (HCC) documented in this encounter Additional Health Concerns Assessment Noted Time PHQ-9 Depression Total Score: 3 11/22/2019 7:34 AM CDT documented as of this encounter Care Teams Database Designer Relationship Specialty Start Date End Date Elsewhere, Pcp PCP - General Family Medicine 07/29/17 [facility] - Laboratory Medicine 04/12/20 [place] [phone] documented as of this encounter
--- OUTSIDE RECORDS SUMMARY | 2022-05-17 18:51 | XMS_ITS | Encounter Summary ---
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 [address] [place] [phone] 05/23/2022 Clinical Admitting/Central Communication Scheduling 05/27/2022 Comprehensive Visit Orthopedic Surgery Markus Sams M.D., Ph.D. [address] [place] [phone] 05/29/2022 Office Visit Otorhinolaryngology Dex Matta APRN, C.N.P., M.S.N. [address] [place] [phone] 05/29/2022 Office Visit Otorhinolaryngology Nadeem Maradiaga, P.A.-C., M.S. [address] [place] [phone] 05/31/2022 Appointment Radiology Guilherme Matt MPAS, P.Murtaza.Marie., M.S. [address] [place] [phone] 06/05/2022 Appointment Laboratory Medicine Angélica Granger P.A.-C. [address] [place] [phone] 06/19/2022 Appointment Laboratory Medicine Angélica Granger P.A.-C. [address] [place] [phone] 07/03/2022 Appointment Laboratory Medicine Angélica Granger P.A.-C. [address] [place] [phone] 07/17/2022 Appointment Laboratory Medicine Angélica Granger P.A.-C. [address] [place] [phone] 07/31/2022 Appointment Laboratory Medicine Angélica Granger P.A.-C. [address] [place] [phone] 08/14/2022 Appointment Laboratory Medicine Angélica Granger P.A.-C. [address] [place] [phone] 08/28/2022 Appointment Laboratory Medicine Angélica Granger P.A.-C. [address] [place] [phone] documented as of this encounter Procedures Procedure Name Priority Date/Time Associated Comments Diagnosis DERMATOLOGY IMAGE Routine 05/04/2020 10:39 Result s for this EXAM AM ASSOCIATE CHIEF NURSE procedure are i n the results section. documented in this encounter Results Thigh-Dermatology Image Exam (05/04/2020 10:39 AM ASSOCIATE CHIEF NURSE) Specimen (Source) Anatomical Collection Method Collection Time Re ceived Time Location / / Volume Laterality 05/04/2020 12:00 PM ASSOCIATE CHIEF NURSE Narrative IIMS - 05/04/2020 10:39 AM ASSOCIATE CHIEF NURSE This order has been created and auto-finalized to support the import of images acquired without order. The clini adelfo documentation to support these images can be found on the encounter ana t produced images. Provider Not In System IMG NON RAD IMAGING PROCEDUR ES Performing Organization Address City/State/ZIP Code Phon e Number IIPA IIPA NA documented in this encounter Visit Diagnoses Not on filedocumented in this encounter Additional Health Concerns Assessment Noted Time PHQ-9 Depression Total Score: 3 11/22/2019 7:34 AM CDT documented as of this encounter Care Teams Patrol Conductor Relationship Specialty Start Date End Date Elsewhere, Pcp PCP - General Family Medicine 07/29/17 [facility] - Laboratory Medicine 04/12/20 [place] [phone] documented as of this encounter
--- OUTSIDE RECORDS SUMMARY | 2022-05-17 18:51 | XMS_ITS | Encounter Summary ---
:1955 Author Organization [facility] Address [address] [place] [address] Care Team Providers Name Role Phone Elsewhere, Pcp Primary Care Provider Unavailable Reason for Visit Reason Comments Appointment old order Encounter Details Date Type Department Care Team Description 05/05/2020 Clinical Curt Corral Appoin [facility] (old Communication Center for hLilia, order) Transplantation and R.N., Clinical Regeneration C.C.T.C. 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 - 05/05/2020 5:02 PM CST Will leave this up to Angélica. Lilia Rasheed PRESIDENT INDUSTRIAL RELATIONS Telephone Encounter - Rachelle Buckner - 05/05/2020 4:49 PM CST Angélica Granger ordered back on 02/02/2020 [facility] [place] [facility] to be scheduled the same day.Does the patient still need this order? Please advise. Thank you PRESIDENT INDUSTRIAL RELATIONS documented in this encounter Plan of Treatment Upcoming Encounters Date Type Specialty Care Team Description 05/22/2022 Appointment Laboratory Medicine Angélica Granger P.A.-C. [address] [place] [phone] 05/23/2022 Clinical Admitting/Central Communication Scheduling 05/27/2022 Comprehensive Visit Orthopedic Surgery Maruks Sams M.D., Ph.D. [address] [place] [phone] 05/29/2022 Office Visit Otorhinolaryngology Dex Matta APRN CDemetriusNJuan Miguel, M.S.N. [address] [place] [phone] 05/29/2022 Office Visit Otorhinolaryngology Nadeem Maradiaga, Jennifer., M.S. [address] [place] [phone] 05/31/2022 Appointment Radiology Guilherme Matt MPAS, Edmundo, M.S. [address] [place] [phone] 06/05/2022 Appointment Laboratory Medicine Angélica Granger P.A.-C. [address] [place] [phone] 06/19/2022 Appointment Laboratory Medicine Angélica Granger P.A.-C. [address] [place] [phone] 07/03/2022 Appointment Laboratory Medicine Angélica Granger P.A.-C. [address] [place] [phone] 07/17/2022 Appointment Laboratory Medicine Angélica Granger P.A.-C. [address] [place] [phone] 07/31/2022 Appointment Laboratory Medicine Angélica Granger P.A.-C. [address] [place] [phone] 08/14/2022 Appointment Laboratory Medicine Angélica Granger P.A.-C. [address] [place] [phone] 08/28/2022 Appointment Laboratory Medicine Angélica Granger P.A.-C. [address] [place] [phone] documented as of this encounter Visit Diagnoses Not on filedocumented in this encounter Additional Health Concerns Assessment Noted Time PHQ-9 Depression Total Score: 3 11/22/2019 7:34 AM CDT documented as of this encounter Care Teams Store Stocker Relationship Specialty Start Date End Date Elsewhere, Pcp PCP - General Family Medicine 07/29/17 [facility] - Laboratory Medicine 04/12/[address] [phone] documented as of this encounter
--- OUTSIDE RECORDS SUMMARY | 2022-05-17 18:51 | XMS_ITS | Encounter Summary ---
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 [address] [place] [phone] 05/23/2022 Clinical Admitting/Central Communication Scheduling 05/27/2022 Comprehensive Visit Orthopedic Surgery Markus Sams M.D., Ph.D. [address] [place] [phone] 05/29/2022 Office Visit Otorhinolaryngology Dex Matta APRN, C.N.P., M.S.N. [address] [place] [phone] 05/29/2022 Office Visit Otorhinolaryngology Nadeem Maradiaga, P.A.-C., M.S. [address] [place] [address] [phone] 05/31/2022 Appointment Radiology Guilherme Matt MPAS, P.Murtaza.Marie., M.S. [address] [place] [phone] 06/05/2022 Appointment Laboratory Medicine Angélica Granger P.A.-C. [address] [place] [phone] 06/19/2022 Appointment Laboratory Medicine Angélica Granger P.A.-C. [address] [place] [phone] 07/03/2022 Appointment Laboratory Medicine Angélica Granger P.A.-C. [address] [place] [phone] 07/17/2022 Appointment Laboratory Medicine Angélica Granger P.A.-C. [address] [place] [phone] 07/31/2022 Appointment Laboratory Medicine Angélica Granger P.A.-C. [address] [place] [phone] 08/14/2022 Appointment Laboratory Medicine Angélica Granger P.A.-C. [address] [place] [phone] 08/28/2022 Appointment Laboratory Medicine Angélica Granger P.A.-C. [address] [place] [phone] documented as of this encounter Procedures Procedure Name Priority Date/Time Associated Comments Diagnosis DERMATOLOGY IMAGE Routine 05/04/2020 10:38 Result s for this EXAM AM SIGN SHOP SUPERVISOR procedure are i n the results section. documented in this encounter Results Shoulder-Dermatology Image Exam (05/04/2020 10:38 AM SIGN SHOP SUPERVISOR) Specimen (Source) Anatomical Collection Method Collection Time Re ceived Time Location / / Volume Laterality 05/04/2020 12:00 PM SIGN SHOP SUPERVISOR Narrative IIMS - 05/04/2020 10:38 AM SIGN SHOP SUPERVISOR This order has been created and auto-finalized to support the import of images acquired without order. The clini adelfo documentation to support these images can be found on the encounter ana t produced images. Provider Not In System IMG NON RAD IMAGING PROCEDUR ES Performing Organization Address City/State/ZIP Code Phon e Number IICT IICT NA documented in this encounter Visit Diagnoses Not on filedocumented in this encounter Additional Health Concerns Assessment Noted Time PHQ-9 Depression Total Score: 3 11/22/2019 7:34 AM CDT documented as of this encounter Care Teams Pilot Can Router Relationship Specialty Start Date End Date Elsewhere, Pcp PCP - General Family Medicine 07/29/17 [facility] - Laboratory Medicine 04/12/20 [place] [phone] documented as of this encounter
--- OUTSIDE RECORDS SUMMARY | 2022-05-17 18:51 | XMS_ITS | Encounter Summary ---
:1955 Author Organization [facility] Address [address] [place] [address] Care Team Providers Name Role Phone Elsewhere, Pcp Primary Care Provider Unavailable Reason for Visit Reason Comments Pre-visit Testing Orders Encounter Details Date Type Department Care Team Description 05/05/2020 Clinical Communication Division of [facility], Pre- visit Testing Nephrology and Sada Hobson Orders Hypertension in [address] [place], [place] [address] [place] [phone] [place], [place] [phone] (Work) [phone] Social History Tobacco Use Types Packs/Day Years [...] CLERK AUDITING documented as of this encounter Miscellaneous Notes Telephone Encounter - Joce Bailey M.D. - 05/08/2020 10:56 PM CONTROL CLERK AUDITING I ordered blood and urine test. Please schedule before the visit. ROL CLERK AUDITING Telephone Encounter - Rosio Santamaria - 05/05/2020 4:[address] Bailey, Mr Singh scheduled to see you on May 22. Would you like pre-testing? Thank you Rosio Avelar-Schedule testing [place] on 11 AM. Call patient. ROL CLERK AUDITING documented in this encounter Plan of Treatment Upcoming Encounters Date Type Specialty Care Team Description 05/22/2022 Appointment Laboratory Medicine Angélica Granger P.A.-C. [address] [place] [phone] 05/23/2022 Clinical Admitting/Central Communication Scheduling 05/27/2022 Comprehensive Visit Orthopedic Surgery Markus Sams M.D., Ph.D. [address] [place] [phone] 05/29/2022 Office Visit Otorhinolaryngology Dex Matta APRN, C.N.P., M.S.N. [address] [place] [phone] 05/29/2022 Office Visit Otorhinolaryngology Nadeem Maradiaga P.A.-C., M.S. [address] [place] [phone] 05/31/2022 Appointment Radiology Guilherme Matt MPAS, P.A.-C., M.S. [address] [place] [phone] 06/05/2022 Appointment Laboratory Medicine Angélica Granger P.A.-C. [address] [place] [phone] 06/19/2022 Appointment Laboratory Medicine Angélica Granger P.A.-C. [address] [place] [phone] 07/03/2022 Appointment Laboratory Medicine Angélica Granger P.A.-C. [address] [place] [phone] 07/17/2022 Appointment Laboratory Medicine Angélica Granger P.A.-C. [address] [place] [phone] 07/31/2022 Appointment Laboratory Medicine Angélica Granger P.A.-C. [address] [place] [phone] 08/14/2022 Appointment Laboratory Medicine Angélica Granger P.A.-C. [address] [place] [phone] 08/28/2022 Appointment Laboratory Medicine Angélica Granger P.A.-C. [address] [place] [phone] documented as of this encounter Results (ABNORMAL) Albumin, Random, Urine (05/19/2020 9:29 AM CONTROL CLERK AUDITING) [facility] Method Time Signature Microalbumin 1341.0 mg/L 05/19/2020 [place] 12:05 PM CONTROL CLERK AUDITING Creatinine 87 mg/dL 05/19/2020 [place] 11:01 AM CONTROL CLERK AUDITING Albumin/Creatinin 1541 (H) <17 mg/g 05/19/2020 [place] e Ratio 12:05 PM CONTROL CLERK AUDITING Specimen Anatomical Collection Method Collection Time Receive d Time (Source) Location / / Volume Laterality Urine (Urine, 05/19/2020 9:29 AM 05/19/20 20 Voided) CONTROL CLERK AUDITING 10:27 AM CONTROL CLERK AUDITING Joce Bailey M.D. LAB URINE ORDERABLES Performing Organization Address City/State/ZIP Code Phon e Number [facility]- [address] [place] [address] [place] [address] System in [place] [address] (ABNORMAL) Urinalysis with Microscopic: Urine, Voided (05/19/2020 9:29 AM CONTROL CLERK AUDITING) P athologist Signature Source Void 05/19/2020 9:37 FB60 AM CONTROL CLERK AUDITING Clarity Clear Clear 05/19/2020 9:45 FB60 AM CONTROL CLERK AUDITING Color Yellow 05/19/2020 9:45 FB60 AM CONTROL CLERK AUDITING Comment: ----REFERENCE VALUE---- Colorless Yellow Bhakti Blood Small (A) Negative 05/19/2020 9:45 AM CONTROL CLERK AUDITING FB60 Nitrite Negative Negative 05/19/2020 9:45 AM CONTROL CLERK AUDITING FB60 Leukocyte Esterase Negative Negative 05/19/2020 9:45 AM CS T FB60 Protein >=300 (A) mg/dL 05/19/2020 9:45 AM CONTROL CLERK AUDITING FB60 Comment: ----REFERENCE VALUE---- Negative Trace Glucose Negative Negative mg/dL 05/19/2020 9:45 AM CONTROL CLERK AUDITING FB 60 Ketones, QI(U) Negative Negative mg/dL 05/19/2020 9:[address] FB60 Bilirubin Negative Negative 05/19/2020 9:45 AM CONTROL CLERK AUDITING FB60 pH 7.0 5.0 - 8.0 05/19/2020 9:45 AM CONTROL CLERK AUDITING FB60 Specific [place] 1.020 1.001 - 1.035 05/19/2020 9:45 AM CONTROL CLERK AUDITING FB60 Urobilinogen 0.2 0.2 - 1.0 mg/dL 05/19/2020 9:45 AM CS T FB60 White Blood Cells Occ-3 /hpf 05/19/2020 9:45 AM CONTROL CLERK AUDITING FB60 Comment: ----REFERENCE VALUE---- Males: 0-3 Females: 0-10 Unknown: 0-10 Red Blood Cells 3-10 (A) 0 - 2 /hpf 05/19/2020 9:45 AM CONTROL CLERK AUDITING FB60 Dysmorphic Red Blood Cells <=25 <=25 % 05/19/2020 9: 45 AM CONTROL CLERK AUDITING FB60 Specimen Anatomical Collection Method Collection Time Receive d Time (Source) Location / / Volume Laterality Urine (Urine, 05/19/2020 9:29 AM 05/19/20 9:29 Voided) CONTROL CLERK AUDITING AM CONTROL CLERK AUDITING Joce Bailey M.D. LAB URINE ORDERABLES Performing Organization Address City/State/ZIP Code Phon e Number [address] [place] [address] [facility] [address] [place] [address] System in [address] (ABNORMAL) Magnesium (05/19/2020 9:26 AM CONTROL CLERK AUDITING) P athologist Signature Magnesium, P 3.0 (H) 1.7 - 2.3 05/19/2020 [place] mg/dL 10:49 AM CONTROL CLERK AUDITING Specimen Anatomical Collection Method Collection Time Receive d Time (Source) Location / / Volume Laterality Blood (Blood, 05/19/2020 9:26 AM 05/19/20 20 Venous) CONTROL CLERK AUDITING 10:27 AM CONTROL CLERK AUDITING Joce Bailey M.D. LAB BLOOD ADD-ON Performing Organization Address City/State/ZIP Code Phon e Number [facility]- [address] [place] [address] [place] [address] System in [place] [address] (ABNORMAL) CBC with Differential, Blood (05/19/2020 9:26 AM CONTROL CLERK AUDITING) [facility] gist Method Time Signature Hemoglobin 11.0 (L) 13.2 - 05/19/2020 FB60 16.6 g/dL 9:31 AM CONTROL CLERK AUDITING Hematocrit 32.1 (L) 38.3 - 05/19/2020 FB60 48.6 % 9:31 AM CONTROL CLERK AUDITING Erythrocytes 3.58 (L) 4.35 - 05/19/2020 FB60 5.65 9:31 AM CONTROL CLERK AUDITING x10(12)/L MCV 89.7 78.2 - 05/19/2020 FB60 97.9 fL 9:31 AM CONTROL CLERK AUDITING RBC Distrib Width 13.3 11.8 - 05/19/2020 FB60 14.5 % 9:31 AM CONTROL CLERK AUDITING Platelet Count 183 135 - 317 05/19/2020 FB60 x10(9)/L 9:31 AM CONTROL CLERK AUDITING Leukocytes 3.3 (L) 3.4 - 9.6 05/19/2020 FB60 x10(9)/L 9:31 AM CONTROL CLERK AUDITING Neutrophils 1.53 (L) 1.56 - 05/19/2020 FB60 6.45 9:31 AM CONTROL CLERK AUDITING x10(9)/L Lymphocytes 1.17 0.95 - 05/19/2020 FB60 3.07 9:31 AM CONTROL CLERK AUDITING x10(9)/L Monocytes 0.51 0.26 - 05/19/2020 FB60 0.81 9:31 AM CONTROL CLERK AUDITING x10(9)/L Eosinophils 0.07 0.03 - 05/19/2020 FB60 0.48 9:31 AM CONTROL CLERK AUDITING x10(9)/L Basophils 0.01 0.01 - 05/19/2020 FB60 0.08 9:31 AM CONTROL CLERK AUDITING x10(9)/L Specimen Anatomical Collection Method Collection Time Receive d Time (Source) Location / / Volume Laterality Blood (Blood, 05/19/2020 9:26 AM 05/19/20 20 9:27 Venous) CONTROL CLERK AUDITING AM CONTROL CLERK AUDITING Joce Bailey M.D. LAB BLOOD ADD-ON Performing Organization Address City/State/ZIP Code Phon e Number [facility]- [address] [place] [address] [facility] [address] [place] [address] (ABNORMAL) Cystatin C with Estimated GFR, S (05/19/2020 9:26 AM CONTROL CLERK AUDITING) athologist Signature eGFR by 14 >60 05/20/2020 DAVE Cystatin C mL/min/BSA 9:53 AM CONTROL CLERK AUDITING Comment: ----ADDITIONAL INFORMATION---- Cystatin C-based eGFR may differ substan tially from creatinine-based eGFR in patients with a bnormal muscle mass or acutely changing renal function. ??Pl ease interpret together with relevant clinical features. Cystatin C, S 3.56 (H) 0.77 - 1.42 mg/L 05/20/2020 9:53 AM CONTROL CLERK AUDITING DAVE Specimen Anatomical Collection Method Collection Time Receive d Time (Source) Location / / Volume Laterality Blood (Blood, 05/19/2020 9:26 AM 05/20/20 7:58 Venous) CONTROL CLERK AUDITING AM CONTROL CLERK AUDITING Joce Bailey M.D. LAB BLOOD ADD-ON Performing Organization Address City/State/ZIP Code Phon e Number [facility] - [address] [place], [place] [address] [place] [address] Laboratories-[facility] [address] (ABNORMAL) Renal Function Panel (05/19/2020 9:26 AM CONTROL CLERK AUDITING) Analysis Performed At Patho logist Time Signature Potassium, P 3.9 3.6 - 5.2 05/19/2020 [place] mmol/L 10:49 AM CONTROL CLERK AUDITING Sodium, P 138 135 - 145 05/19/2020 [place] mmol/L 10:49 AM CONTROL CLERK AUDITING Chloride, P 99 98 - 107 05/19/2020 [place] mmol/L 10:49 AM CONTROL CLERK AUDITING Bicarbonate, P 27 22 - 29 05/19/2020 [place] mmol/L 10:49 AM CONTROL CLERK AUDITING Anion Gap, P 12 7 - 15 05/19/2020 [place] 10:49 AM CONTROL CLERK AUDITING BUN (Blood Urea 62 (H) 8 - 24 05/19/2020 [place] Nitrogen), P mg/dL 10:49 AM CONTROL CLERK AUDITING Creatinine 3.37 (H) 0.74 - 05/19/2020 [place] 1.35 mg/dL 10:49 AM CONTROL CLERK AUDITING eGFR-Black/Afri 21 (L) >=60 05/19/2020 [place] can [place] mL/min/BSA 10:49 AM CONTROL CLERK AUDITING Comment: ----ADDITIONAL INFORMATION---- Estimated GFR calculated using the 2009 CKD_EPI creatinine equation. eGFR Non-Black/ 18 (L) >=60 mL/min/BSA 05/19/2020 10:49 AM CONTROL CLERK AUDITING [place] Comment: ----ADDITIONAL INFORMATION---- Estimated GFR calculated using the 2009 CKD_EPI creatinine equation. Calcium, Total, P 8.8 8.8 - 10.2 mg/dL 05/19/2020 10:4 9 AM CONTROL CLERK AUDITING [place] Glucose, P 131 70 - 140 mg/dL 05/19/2020 10:49 AM CONTROL CLERK AUDITING [place] Albumin, P 4.0 3.5 - 5.0 g/dL 05/19/2020 10:49 AM CONTROL CLERK AUDITING [place] Phosphorus (Inorganic), P 4.1 2.5 - 4.5 mg/dL 05/19/20 20 4:12 PM CONTROL CLERK AUDITING AUST Specimen Anatomical Collection Method Collection Time Receive d Time (Source) Location / / Volume Laterality Blood (Blood, 05/19/2020 9:26 AM 05/19/20 Venous) CONTROL CLERK AUDITING 10:27 AM CONTROL CLERK AUDITING Narrative [facility] - 05/19/2020 4:12 PM CONTROL CLERK AUDITING Specimen Information: Specimen ID: [id number] Specimen Type: Blood Specimen Collection Start Date: 020 ??9:26 AM Specimen Received Date: 05/19/2020 10:2 7 AM Specimen ID: [id number] Specimen Type: Blood Specimen Collection Start Date: 020 ??9:26 AM Specimen Received Date: 05/19/2020 ??3: 30 PM Joce Bailey M.D. LAB BLOOD ADD-ON Performing Organization Address City/State/ZIP Code Phon e Number [facility]- [address] [place] [address] [place] [address] System in [place] [address] [place] [address] [facility] [address] documented in this encounter Visit Diagnoses Diagnosis Chronic Kidney Disease Stage 4 Glomerula r Filtration Rate 15-29 (HCC) - Primary Chronic Kidney Disease Stage 4 Glomerula r Filtration Rate 15-29 (HCC) documented in this encounter Additional Health Concerns Assessment Noted Time PHQ-9 Depression Total Score: 3 11/22/2019 7:34 AM CDT documented as of this encounter Care Teams Floral Designer Relationship Specialty Start Date End Date Elsewhere, Pcp PCP - General Family Medicine 07/29/17 [facility] - Laboratory Medicine 04/12/20 [place] [phone] documented as of this encounter
--- OUTSIDE RECORDS SUMMARY | 2022-05-17 18:51 | XMS_ITS | Encounter Summary ---
:1955 Author Organization [facility] Address [address] [place] [address] Care Team Providers Name Role Phone Elsewhere, Pcp Primary Care Provider Unavailable Encounter Details Date Type Department Care Team Description 05/19/2020 Hospital Encounter Department of [facility], Chronic Kidney Laboratory Medicine Sada Hobson Disease Stage [address] Filtration Rate [address] [phone] 15-29 ([facility]) [place], [place] [phone] (Work) [phone] Social History Tobacco Use Types Packs/Day Years [...] Date Recorded Male 05/16/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 Transplant Liver ([facility]) glucosamine-chondroitin Take 4 capsules by 0 [...] TWICE DAILY tabletIndications: Transplant Liver ([facility]) predniSONE (DELTASONE) Take 1 tablet (10 15 tablet 0 201905/22/2020 10 mg tablet mg total) by mouth daily. predniSONE (DELTASONE) 5 Take 1 tablet (5 mg 90 tablet 3 07/20/2020 mg tabletIndications: total) by mouth Transplant Liver ([facility]), daily. Medication Therapy Alf Not Anticoagulant tacrolimus (PROGRAF) 0.5 Take 2 capsules (1 360 capsule 3 07/20/2020 mg capsuleIndications: mg total) by mouth Transplant Liver ([facility]), 2 (two) times a Medication Therapy [...] Laboratory Medicine Angélica Granger P.A.-C. [address] [place] [phone] 05/23/2022 Clinical Admitting/Central Communication Scheduling 05/27/2022 Comprehensive Visit Orthopedic Surgery Markus Sams M.D., Ph.D. [address] [place] [phone] 05/29/2022 Office Visit Otorhinolaryngology Dex Matta APRN, C.N.P., M.S.N. [address] [place] [phone] 05/29/2022 Office Visit Otorhinolaryngology Nadeem Maradiaga, P.A.-C., M.S. [address] [place] [phone] 05/31/2022 Appointment Radiology Guilherme Matt, RASTA, P.A.-C., M.S. [address] [place] [phone] 06/05/2022 Appointment Laboratory Medicine Angélica Granger P.A.-C. [address] [place] [phone] 06/19/2022 Appointment Laboratory Medicine Angélica Granger P.A.-C. [address] [place] [phone] 07/03/2022 Appointment Laboratory Medicine Angélica Granger P.A.-C. [address] [place] [phone] 07/17/2022 Appointment Laboratory Medicine Angélica Granger P.A.-C. [address] [place] [phone] 07/31/2022 Appointment Laboratory Medicine Angélica Granger P.A.-C. [address] [place] [phone] 08/14/2022 Appointment Laboratory Medicine Angélica Granger P.A.-C. [address] [place] [phone] 08/28/2022 Appointment Laboratory Medicine Angélica Granger P.A.-C. [address] [place] [phone] documented as of this encounter Procedures Procedure Name Priority Date/Time Associated Diagnosis Comme nts RENAL FUNCTION Routine 05/19/2020 9:26 AM Chronic Kidney Resul ts for this PANEL, S GLASS INSPECTOR Disease Stage 4 procedure ar e in Glomerular the results Filtration Rate section. (HCC) CYSTATIN C WITH Routine 05/19/2020 9:26 AM Chronic Kidney Resu lts for this EGFR GLASS INSPECTOR Disease Stage 4 procedure ar e in Glomerular the results Filtration Rate section. (HCC) CBC WITH Routine 05/19/2020 9:26 AM Chronic Kidney Results for this DIFFERENTIAL, B GLASS INSPECTOR Disease Stage 4 procedure are in Glomerular the results Filtration Rate section. (HCC) MAGNESIUM, S Routine 05/19/2020 9:26 AM Chronic Kidney Results for this GLASS INSPECTOR Disease Stage 4 procedure ar e in Glomerular the results Filtration Rate section. (HCC) documented in this encounter Results (ABNORMAL) Magnesium (05/19/2020 9:26 AM GLASS INSPECTOR) P athologist Signature Magnesium, P 3.0 (H) 1.7 - 2.3 05/19/2020 [place] mg/dL 10:49 AM GLASS INSPECTOR Specimen Anatomical Collection Method Collection Time Receive d Time (Source) Location / / Volume Laterality Blood (Blood, 05/19/2020 9:26 AM 05/19/20 20 Venous) GLASS INSPECTOR 10:27 AM GLASS INSPECTOR Joce Bailey M.D. LAB BLOOD ADD-ON Performing Organization Address City/State/ZIP Code Phon e Number [facility]- [address] [place] [address] [facility] [place] [place] [address] System in [place] [address] (ABNORMAL) CBC with Differential, Blood (05/19/2020 9:26 AM GLASS INSPECTOR) Patholo gist Method Time Signature Hemoglobin 11.0 (L) 13.2 - 05/19/2020 FB60 16.6 g/dL 9:31 AM GLASS INSPECTOR Hematocrit 32.1 (L) 38.3 - 05/19/2020 FB60 48.6 % 9:31 AM GLASS INSPECTOR Erythrocytes 3.58 (L) 4.35 - 05/19/2020 FB60 5.65 9:31 AM GLASS INSPECTOR x10(12)/L MCV 89.7 78.2 - 05/19/2020 FB60 97.9 fL 9:31 AM GLASS INSPECTOR RBC Distrib Width 13.3 11.8 - 05/19/2020 FB60 14.5 % 9:31 AM GLASS INSPECTOR Platelet Count 183 135 - 317 05/19/2020 FB60 x10(9)/L 9:31 AM GLASS INSPECTOR Leukocytes 3.3 (L) 3.4 - 9.6 05/19/2020 FB60 x10(9)/L 9:31 AM GLASS INSPECTOR Neutrophils 1.53 (L) 1.56 - 05/19/2020 FB60 6.45 9:31 AM GLASS INSPECTOR x10(9)/L Lymphocytes 1.17 0.95 - 05/19/2020 FB60 3.07 9:31 AM GLASS INSPECTOR x10(9)/L Monocytes 0.51 0.26 - 05/19/2020 FB60 0.81 9:31 AM GLASS INSPECTOR x10(9)/L Eosinophils 0.07 0.03 - 05/19/2020 FB60 0.48 9:31 AM GLASS INSPECTOR x10(9)/L Basophils 0.01 0.01 - 05/19/2020 FB60 0.08 9:31 AM GLASS INSPECTOR x10(9)/L Specimen Anatomical Collection Method Collection Time Receive d Time (Source) Location / / Volume Laterality Blood (Blood, 05/19/2020 9:26 AM 05/19/20 20 9:27 Venous) GLASS INSPECTOR AM GLASS INSPECTOR Joce Bailey M.D. LAB BLOOD ADD-ON Performing Organization Address City/[facility]/ZIP [facility] Phon e Number [facility]- [address] [place] [address] [place] [address] [facility] [address] [place] [address] (ABNORMAL) Cystatin C with Estimated GFR, S (05/19/2020 9:26 AM GLASS INSPECTOR) P athologist Signature eGFR by 14 >60 05/20/2020 DAVE Cystatin C mL/min/BSA 9:53 AM GLASS INSPECTOR Comment: ----ADDITIONAL INFORMATION---- Cystatin C-based eGFR may differ substan tially from creatinine-based eGFR in patients with a bnormal muscle mass or acutely changing renal function. ??Pl ease interpret together with relevant clinical features. Cystatin C, S 3.56 (H) 0.77 - 1.42 mg/L 05/20/2020 9:53 AM GLASS INSPECTOR DAVE Specimen Anatomical Collection Method Collection Time Receive d Time (Source) Location / / Volume Laterality Blood (Blood, 05/19/2020 9:26 AM 05/20/20 20 7:58 Venous) GLASS INSPECTOR AM GLASS INSPECTOR Joce Bailey M.D. LAB BLOOD ADD-ON Performing Organization Address City/State/ZIP Code Phon e Number [facility] - [address] [place], [place] [address] [employer] [facility] [place] [address] Laboratories-[facility] [address] (ABNORMAL) Renal Function Panel (05/19/2020 9:26 AM GLASS INSPECTOR) Analysis Performed At Patho logist Time Signature Potassium, P 3.9 3.6 - 5.2 05/19/2020 [place] mmol/L 10:49 AM GLASS INSPECTOR Sodium, P 138 135 - 145 05/19/2020 [place] mmol/L 10:49 AM GLASS INSPECTOR Chloride, P 99 98 - 107 05/19/2020 [place] mmol/L 10:49 AM GLASS INSPECTOR Bicarbonate, P 27 22 - 29 05/19/2020 [place] mmol/L 10:49 AM GLASS INSPECTOR Anion Gap, P 12 7 - 15 05/19/2020 [place] 10:49 AM GLASS INSPECTOR BUN (Blood Urea 62 (H) 8 - 24 05/19/2020 [place] Nitrogen), P mg/dL 10:49 AM GLASS INSPECTOR Creatinine 3.37 (H) 0.74 - 05/19/2020 [place] 1.35 mg/dL 10:49 AM GLASS INSPECTOR eGFR-Black/Afri 21 (L) >=60 05/19/2020 [place] can [place] mL/min/BSA 10:49 AM GLASS INSPECTOR Comment: ----ADDITIONAL INFORMATION---- Estimated GFR calculated using the 2009 CKD_EPI creatinine equation. eGFR Non-Black/ 18 (L) >=60 mL/min/BSA 05/19/2020 10:49 AM GLASS INSPECTOR [place] Comment: ----ADDITIONAL INFORMATION---- Estimated GFR calculated using the 2009 CKD_EPI creatinine equation. Calcium, Total, P 8.8 8.8 - 10.2 mg/dL 05/19/2020 10:4 9 AM GLASS INSPECTOR [place] Glucose, P 131 70 - 140 mg/dL 05/19/2020 10:49 AM GLASS INSPECTOR [place] Albumin, P 4.0 3.5 - 5.0 g/dL 05/19/2020 10:49 AM GLASS INSPECTOR [place] Phosphorus (Inorganic), P 4.1 2.5 - 4.5 mg/dL 05/19/20 20 4:12 PM GLASS INSPECTOR [place] Specimen Anatomical Collection Method Collection Time Receive d Time (Source) Location / / Volume Laterality Blood (Blood, 05/19/2020 9:26 AM 05/19/20 Venous) GLASS INSPECTOR 10:27 AM GLASS INSPECTOR Narrative [facility] - 05/19/2020 4:12 PM GLASS INSPECTOR Specimen Information: Specimen ID: [id number] Specimen Type: Blood Specimen Collection Start Date: 020 ??9:26 AM Specimen Received Date: 05/19/2020 10:2 7 AM Specimen ID: [id number] Specimen Type: Blood Specimen Collection Start Date: 020 ??9:26 AM Specimen Received Date: 05/19/2020 ??3: 30 PM Joce Bailey M.D. LAB BLOOD ADD-ON Performing Organization Address City/State/ZIP Code Phon e Number [facility]- [address] [place] [address] [place] [address] System in [place] [address] [place] [address] [facility] [address] documented in this encounter Visit Diagnoses Diagnosis Chronic Kidney Disease Stage 4 Glomerula r Filtration Rate 15-29 (HCC) documented in this encounter Additional Health Concerns Assessment Noted Time PHQ-9 Depression Total Score: 3 11/22/2019 7:34 AM CDT documented as of this encounter Care Teams Teacher Dancing Relationship Specialty Start Date End Date Elsewhere, Pcp PCP - General Family Medicine 07/29/17 [facility] - Laboratory Medicine 04/12/[address] [id number] documented as of this encounter
--- OUTSIDE RECORDS SUMMARY | 2022-05-17 18:51 | XMS_ITS | Encounter Summary ---
:1955 Author Organization [facility] Address [address] [place] [address] Care Team Providers Name Role Phone Elsewhere, Pcp Primary Care Provider Unavailable Encounter Details Date Type Department Care Team Description 05/02/2020 Hospital Encounter Department of [facility], Chronic Kidney Laboratory Medicine Sada Hobson Disease Stage [address] Filtration Rate [address] [phone] 15- ([facility]) [place], [place] [phone] [address] (Work) [phone] Social History Tobacco Use Types Packs/Day Years [...] Date Recorded Male 05/16/2020 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 Transplant Liver ([facility]) glucosamine-chondroitin Take 4 capsules by 0 05/22/2020 [...] DAILY tabletIndications: Transplant Liver ([facility]) predniSONE (DELTASONE) Take 1 tablet (10 15 [...] Laboratory Medicine Angélica Granger P.A.-C. [address] [place] [phone] 05/23/2022 Clinical Admitting/Central Communication Scheduling 05/27/2022 Comprehensive Visit Orthopedic Surgery Markus Sams M.D., Ph.D. [address] [place] [address] [phone] 05/29/2022 Office Visit Otorhinolaryngology Dex Matta, RAMONA, C.N.P., M.S.N. [address] [place] [address] [phone] 05/29/2022 Office Visit Otorhinolaryngology Nadeem Maradiaga, P.A.-C., M.S. [address] [place] [address] [phone] 05/31/2022 Appointment Radiology Guilherme Matt MPAS, P.A.-C., M.S. [address] [place] [phone] 06/05/2022 Appointment Laboratory Medicine Angélica Granger P.A.-C. [address] [place] [phone] 06/19/2022 Appointment Laboratory Medicine Angélica Granger P.A.-C. [address] [place] [address] [phone] 07/03/2022 Appointment Laboratory Medicine Angélica Gragner P.A.-C. [address] [place] [phone] 07/17/2022 Appointment Laboratory Medicine Angélica Granger P.A.-C. [address] [place] [phone] 07/31/2022 Appointment Laboratory Medicine Angélica Granger P.A.-C. [address] [place] [address] [phone] 08/14/2022 Appointment Laboratory Medicine Angélica Granger P.A.-C. [address] [place] [phone] 08/28/2022 Appointment Laboratory Medicine Angélica Granger P.A.-C. [address] [place] [phone] documented as of this encounter Procedures Procedure Name Priority Date/Time Associated Comments Diagnosis ALBUMIN, RANDOM, U Routine 05/02/2020 10:45 Chronic Kidney Res ults for this AM GLOVE PRINTER Disease Stage 4 procedure ar e in Glomerular the results Filtration Rate section. (HCC) URINALYSIS WITH Routine 05/02/2020 10:45 Chronic Kidney Result s for this MICROSCOPIC AM GLOVE PRINTER Disease Stage 4 procedure ar e in Glomerular the results Filtration Rate section. (HCC) documented in this encounter Results (ABNORMAL) Albumin, Random, Urine (05/02/2020 10:45 AM GLOVE PRINTER) [facility] Method Time Signature Microalbumin 1213.0 mg/L 05/02/2020 OWAT 3:01 PM GLOVE PRINTER Creatinine 71 mg/dL 05/02/2020 OWAT 2:35 PM GLOVE PRINTER Albumin/Creatinin 1708 (H) <17 mg/g 05/02/2020 OWAT e Ratio 3:01 PM GLOVE PRINTER Specimen Anatomical Collection Method Collection Time Receive d Time (Source) Location / / Volume Laterality Urine (Urine, 05/02/2020 10:45 05/02/2020 1:43 Voided) AM GLOVE PRINTER PM GLOVE PRINTER Joce Bailey M.D. LAB URINE ORDERABLES Performing Organization Address City/State/ZIP Code Phon e Number [facility]- [address] [place] [address] [facility] [place] [address] System in [place] [address] (ABNORMAL) Urinalysis with Microscopic: Urine, Voided (05/02/2020 10:45 AM GLOVE PRINTER) P athologist Signature Source Midstream 05/02/2020 FB60 11:03 AM GLOVE PRINTER Clarity Clear Clear 05/02/2020 FB60 11:03 AM GLOVE PRINTER Color Yellow 05/02/2020 FB60 11:03 AM GLOVE PRINTER Comment: ----REFERENCE VALUE---- Colorless Yellow Bhakti Blood Small (A) Negative 05/02/2020 11:03 AM GLOVE PRINTER FB60 Nitrite Negative Negative 05/02/2020 11:03 AM GLOVE PRINTER FB60 Leukocyte Esterase Negative Negative 05/02/2020 11:[address] FB60 Protein >=300 (A) mg/dL 05/02/2020 11:03 AM GLOVE PRINTER FB60 Comment: ----REFERENCE VALUE---- Negative Trace Glucose Negative Negative mg/dL 05/02/2020 11:03 AM GLOVE PRINTER F B60 Ketones, QI(U) Negative Negative mg/dL 05/02/2020 11:03 AM GLOVE PRINTER FB60 Bilirubin Negative Negative 05/02/2020 11:03 AM GLOVE PRINTER FB60 pH 7.0 5.0 - 8.0 05/02/2020 11:03 AM GLOVE PRINTER FB60 Specific [place] 1.020 1.001 - 1.035 05/02/2020 11:03 AM GLOVE PRINTER FB60 Urobilinogen 0.2 0.2 - 1.0 mg/dL 05/02/2020 11:[address] FB60 White Blood Cells None Seen /hpf 05/02/2020 11:03 AM CS T FB60 Comment: ----REFERENCE VALUE---- Males: 0-3 Females: 0-10 Unknown: 0-10 Red Blood Cells 3-10 (A) 0 - 2 /hpf 05/02/2020 11:03 AM GLOVE PRINTER FB60 Dysmorphic Red Blood Cells <=25 <=25 % 05/02/2020 11 :03 AM GLOVE PRINTER FB60 Hyaline Casts Occasional /lpf 05/02/2020 11:03 AM GLOVE PRINTER F B60 Specimen Anatomical Collection Method Collection Time Receive d Time (Source) Location / / Volume Laterality Urine (Urine, 05/02/2020 10:45 05/02/2020 Voided) AM GLOVE PRINTER 10:45 AM GLOVE PRINTER Joce Bailey M.D. LAB URINE ORDERABLES Performing Organization Address City/State/ZIP Code Phon e Number [address] [place] [address] [facility] [address] [place] [address] [address] documented in this encounter Visit Diagnoses Diagnosis Chronic Kidney Disease Stage 4 Glomerula r Filtration Rate 15-29 (HCC) documented in this encounter Additional Health Concerns Assessment Noted Time PHQ-9 Depression Total Score: 3 11/22/2019 7:34 AM CDT documented as of this encounter Care Teams Combat Information Center Officer Relationship Specialty Start Date End Date Elsewhere, Pcp PCP - General Family Medicine 07/29/17 [facility] - Laboratory Medicine 04/12/20 [place] [address] documented as of this encounter
--- OUTSIDE RECORDS SUMMARY | 2022-05-17 18:51 | XMS_ITS | Encounter Summary ---
:1955 Author Organization [facility] Address [address] [place] [address] Care Team Providers Name Role Phone Elsewhere, Pcp Primary Care Provider Unavailable Reason for Visit Appointment Request (Routine) - Closed Specialty Diagnoses / Procedures Referred By Contact Refer red To Contact Dermatology Diagnoses Screening Examination Skin Cancer Referral ID Status Reason Start Date Expiration Date Visits Requ ested Visits Authorized [id number] Closed 04/28/2020 04/28/2021 1 1 Encounter Details Date Type Department Care Team Description 05/04/2020 Office Visit Department of Sominidi Tumor Skin Unc ertain Behavior (Primary Dx); Dermatology in [facility], Keratosis [facility]; [place], [place] Sada Hull Cancer Skin Squamous Cell Personal Histo ry; [address] 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 - 05/04/2020 8:40 AM CST Shave biopy was on the Left posterior thigh was/were performed as ordered and outlined by Dr. Liam Phillips ([phone]) in the clinical note dated with today's date. OR MATERIALS PLANNER documented in this encounter Consult Notes Kurtis Montana M.D. - 05/04/2020 8:40 AM CST PATIENT DEMOGRAPHICS Clinic Number: [id number] Patient Name: Mr.. Bruce Singh Age: 64 y.o. Sex: male Birthdate: 1955 Service: DERM Patient seen and discussed with supervising leadership development consultant, Santana Nunez MD [phone]), who evaluated the patient and concurs with [...] about above skin lesions. He started using tgon-uji-hxwwodm compound W, freeze lotion to the areas [...] Patient has been treating these lesions with dhhh-nve-xguyblb Compound-W, freeze treatment. His lasttreatment was yesterday. Unable to clearly define this lesion. Differential diagnosis include seborrheic keratosis versus wart versus squamous cell carcinoma. For now, we have recommended patient to stop using any xyai-bel-rghffdt preparations for the next few weeks. He [...] the patient by letter. Patient given pamphlet TC4960. Patient education Ready to learn, no apparent learning barriers were identified; learning preferences include listening. Explained diagnosis and treatment plan; patient/guardian of patient expressed understanding of thecontent. OR MATERIALS PLANNER Associated attestation - Santana Nunez M.D. - 05/04/2020 9:21 AM SENIOR MATERIALS PLANNER I saw and evaluated the patient, participating [...] Laboratory Medicine Angélica Granger P.A.-C. [address] [place] [phone] 05/23/2022 Clinical Admitting/Central Communication Scheduling 05/27/2022 Comprehensive Visit Orthopedic Surgery Markus Sams M.D., Ph.D. [address] [place] [phone] 05/29/2022 Office Visit Otorhinolaryngology Dex Matta APRN, C.N.P., M.S.N. [address] [place] [phone] 05/29/2022 Office Visit Otorhinolaryngology Nadeem Maradiaga P.A.-C., M.S. [address] [place] [phone] 05/31/2022 Appointment Radiology Guilherme Matt MPAS, Edmundo, M.S. [address] [place] [address] [phone] 06/05/2022 Appointment Laboratory Medicine Angélica Granger P.A.-C. [address] [place] [phone] 06/19/2022 Appointment Laboratory Medicine Angélica Granger P.A.-C. [address] [place] [phone] 07/03/2022 Appointment Laboratory Medicine Angélica Granger P.A.-C. [address] [place] [phone] 07/17/2022 Appointment Laboratory Medicine Angélica Granger P.A.-C. [address] [place] [phone] 07/31/2022 Appointment Laboratory Medicine Angélica Granger P.A.-C. [address] [place] [phone] 08/14/2022 Appointment Laboratory Medicine Angélica Granger P.A.-C. [address] [place] [phone] 08/28/2022 Appointment Laboratory Medicine Angélica Granger P.A.-C. [address] [place] [phone] documented as of this encounter Procedures Procedure Name Priority Date/Time Associated Diagnosis Comme nts DERMATOPATHOLOGY Routine 05/04/2020 9:15 AM Resul ts for this SENIOR MATERIALS PLANNER procedure are i n the results section. documented in this encounter Results Dermatopathology (05/04/2020 9:15 AM SENIOR MATERIALS PLANNER) Component Value Ref Test Analysis Performed At [facility] gist Range Method Time Signature 05/08/2020 PDR 11:57 AM SENIOR MATERIALS PLANNER Report Aaliyah Larson 05/08/2020 PDR electronically Sada Smith 11:57 AM signed by SENIOR MATERIALS PLANNER Gross Description Received in formalin labeled with patient's name, medical 05/08/2020 PDR record number and left posterior thigh is a 0.7 x 0.6 x 11:57 AM 0.1 cm pale grady skin shave biopsy. ??There is a 0.3 x 0.3 cm SENIOR MATERIALS PLANNER pale grady-brown raised, firm pigmented lesion with well-defined borders centrally located on the skin surface. The specimen is bisected and submitted entirely in cassette A1. ??Grossed by NE. Interpretation FINAL DIAGNOSIS 05/08/2020 PDR A. ??Left posterior thigh, Skin shave biopsy: ??Irritated 11:57 AM verrucal keratosis SENIOR MATERIALS PLANNER Specimen (Source) Anatomical Collection Method Collection Time Re ceived Time Location / / Volume Laterality Skin (Left 05/04/2020 9:15 AM posterior thigh) SENIOR MATERIALS PLANNER Narrative This result has an attachment that is no t available. Kurtis Phillips M.D. 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
--- OUTSIDE RECORDS SUMMARY | 2022-05-17 18:51 | XMS_ITS | Encounter Summary ---
:1955 Author Organization [facility] Address [address] [place] [address] Care Team Providers Name Role Phone Elsewhere, Pcp Primary Care Provider Unavailable Reason for Referral Outpatient (Routine) - Closed Specialty Diagnoses / Procedures Referred By Contact Refer red To Contact Video Medicine Diagnoses Rhinosinusitis Chronic Avril Bright M.D. [facility] [address] [place], [place] [phone] Referral ID Status Reason Start Date Expiration Date Visits Requ ested Visits Authorized [id number] Closed 05/15/2020 05/15/2021 1 1 Scheduling Instructions immunocompromised and bothered by alexa alexander. Please schedule a video visit with either Dotty or Jessica. SCUTTER ROLLED GLASS Encounter Details Date Type Department Care Team Description 05/15/2020 Orders Only Department of Avril Bright Rhinosinusitis Chronic Otorhinolaryngology samm Cardenas M.D. 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 [address] [place] [phone] 05/29/2022 Office Visit Otorhinolaryngology Dex Matta APRN, C.N.P., M.S.N. [address] [place] [phone] 05/29/2022 Office Visit Otorhinolaryngology Nadeem Maradiaga P.A.-C., M.S. [address] [place] [phone] 05/31/2022 Appointment Radiology Guilherme Matt MPAS, P.A.-C., M.S. [address] [place] [phone] 06/05/2022 Appointment Laboratory Medicine Angélica Granger P.A.-C. [address] [place] [phone] 06/19/2022 Appointment Laboratory Medicine Angélica Granger P.A.-C. [address] [place] [phone] 07/03/2022 Appointment Laboratory Medicine Angélica Granger P.A.-C. [address] [place] [phone] 07/17/2022 Appointment Laboratory Medicine Angélica Granger P.A.-C. [address] [place] [phone] 07/31/2022 Appointment Laboratory Medicine Angélica Granger P.A.-C. [address] [place] [phone] 08/14/2022 Appointment Laboratory Medicine Angélica Granger P.A.-C. [address] [place] [phone] 08/28/2022 Appointment Laboratory Medicine Angélica Granger P.A.-C. [address] [place] [phone] Scheduled Referrals Name Type Priority Associated Diagnoses Order S chedule Video anyplace Outpatient Referral Routine Rhinosinusitis Car Stereo Installer surinder Expected: visit 05/15/2020 (Approximate), Expires: 05/15/2023 documented as of this encounter Visit Diagnoses Diagnosis Rhinosinusitis Chronic - Primary documented in this encounter Additional Health Concerns Assessment Noted Time PHQ-9 Depression Total Score: 3 11/22/2019 7:34 AM CDT documented as of this encounter Care Teams Marketing And Promotions Manager Relationship Specialty Start Date End Date Elsewhere, Pcp PCP - General Family Medicine 07/29/17 [facility] - Laboratory Medicine 04/12/[address] [address] documented as of this encounter
--- OUTSIDE RECORDS SUMMARY | 2022-05-17 18:51 | XMS_ITS | Encounter Summary ---
:1955 Author Organization [facility] Address [address] [place] [address] Care Team Providers Name Role Phone Elsewhere, Pcp Primary Care Provider Unavailable Reason for Visit Outpatient (Routine) - Closed Specialty Diagnoses / Procedures Referred By Contact Refer red To Contact Nephrology and [facility] Hypertension Sada Hobson [address] [place] [phone] Referral ID Status Reason Start Date Expiration Date Visits Requ ested Visits Authorized [id number] Closed 04/21/2020 04/21/2021 1 1 Encounter Details Date Type Department Care Team Description 05/04/2020 Nurse Only Division of Nephrology and Joce Nelson M.D. [address] [place] [phone] [facility] [place], RDemetriusNDemetrius [place] [address] [place] [phone] Social History Tobacco Use Types Packs/Day [...] 12/15/2021 organizations such as jew groups, unions, fraMultistory Learning or athletic groups, or school groups? 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 Home blood pressures are srobcn242-701/85, though last night it was 185/80. He [...] up with him on 05/22 with labs. NT FINISHER HELPER documented in this encounter Plan of Treatment Upcoming Encounters Date Type Specialty Care Team Description 05/22/2022 Appointment Laboratory Medicine Angélica Granger P.A.-C. [address] [place] [phone] 05/23/2022 Clinical Admitting/Central Communication Scheduling 05/27/2022 Comprehensive Visit Orthopedic Surgery Markus Sams M.D., Ph.D. [address] [place] [phone] 05/29/2022 Office Visit Otorhinolaryngology Dex Matta APRN, C.N.P., M.S.N. [address] [place] [address] [phone] 05/29/2022 Office Visit Otorhinolaryngology Nadeem Maradiaga, P.A.-C., M.S. [address] [place] [phone] 05/31/2022 Appointment Radiology Guilherme Matt MPAS, P.Murtaza.Marie., M.S. [address] [place] [phone] 06/05/2022 Appointment Laboratory Medicine Angélica Granger P.A.-C. [address] [place] [phone] 06/19/2022 Appointment Laboratory Medicine Angélica Granger P.A.-C. [address] [place] [phone] 07/03/2022 Appointment Laboratory Medicine Angélica Granger P.A.-C. [address] [place] [phone] 07/17/2022 Appointment Laboratory Angélica Royal P.A.-C. [address] [place] [phone] 07/31/2022 Appointment Laboratory Angélica Royal P.A.-C. [address] [place] [phone] 08/14/2022 Appointment Laboratory Angélica Royal P.A.-C. [address] [place] [phone] 08/28/2022 Appointment Laboratory Angélica Royal P.A.-C. [address] [place] [phone] documented as of this encounter Visit Diagnoses Not on filedocumented in this encounter Additional Health Concerns Assessment Noted Time PHQ-9 Depression Total Score: 3 11/22/2019 7:34 AM CDT documented as of this encounter Care Teams Plug Making Operator Relationship Specialty Start Date End Date Elsewhere, Pcp PCP - General Family Medicine 07/29/17 [facility] - Laboratory Medicine 04/12/[address] [address] documented as of this encounter
--- OUTSIDE RECORDS SUMMARY | 2022-05-17 18:51 | XMS_ITS | Encounter Summary ---
:1955 Author Organization [facility] Address [address] [place] [address] Care Team Providers Name Role Phone Elsewhere, [...] at Date Recorded Male 05/16/2020 4:27 PM CANADIAN BACON TIER documented as of this encounter Plan of Treatment Upcoming Encounters Date Type Specialty Care Team Description 05/22/2022 Appointment Laboratory Medicine Angélica Granger P.A.-C. [address] [place] [phone] 05/23/2022 Clinical Admitting/Central Communication Scheduling 05/27/2022 Comprehensive Visit Orthopedic Surgery Markus Sams M.D., Ph.D. [address] [place] [phone] 05/29/2022 Office Visit Otorhinolaryngology Dex Matta APRN, C.N.P., M.S.N. [address] [place] [phone] 05/29/2022 Office Visit Otorhinolaryngology Nadeem Maradiaga, P.A.-C., M.S. [address] [place] [phone] 05/31/2022 Appointment Radiology Guilherme Matt MPAS, P.Murtaza.Marie., M.S. [address] [place] [phone] 06/05/2022 Appointment Laboratory Medicine Angélica Granger P.A.-C. [address] [place] [phone] 06/19/2022 Appointment Laboratory Medicine Angélica Granger P.A.-C. [address] [place] [phone] 07/03/2022 Appointment Laboratory Medicine Angélica Granger P.A.-C. [address] [place] [phone] 07/17/2022 Appointment Laboratory Medicine Angélica Granger P.A.-C. [address] [place] [phone] 07/31/2022 Appointment Laboratory Medicine Angélica Granger P.A.-C. [address] [place] [phone] 08/14/2022 Appointment Laboratory Medicine Angélica Granger P.A.-C. [address] [place] [phone] 08/28/2022 Appointment Laboratory Medicine Angélica Granger P.A.-C. [address] [place] [phone] documented as of this encounter Procedures Procedure Name Priority Date/Time Associated Comments Diagnosis DERMATOLOGY IMAGE Routine 05/04/2020 10:39 Result s for this EXAM AM CANADIAN BACON TIER procedure are i n the results section. documented in this encounter Results Chest 521-Dermatology Image Exam (05/04/2020 10:39 AM CANADIAN BACON TIER) Specimen (Source) Anatomical Collection Method Collection Time Re ceived Time Location / / Volume Laterality 05/04/2020 12:00 PM CANADIAN BACON TIER Narrative IIMS - 05/04/2020 10:39 AM CANADIAN BACON TIER This order has been created and auto-finalized to support the import of images acquired without order. The clini adelfo documentation to support these images can be found on the encounter ana t produced images. Provider Not In System IMG NON RAD IMAGING PROCEDUR ES Performing Organization Address City/State/ZIP Code Phon e Number IIAR IIAR NA documented in this encounter Visit Diagnoses Not on filedocumented in this encounter Additional Health Concerns Assessment Noted Time PHQ-9 Depression Total Score: 3 11/22/2019 7:34 AM CDT documented as of this encounter Care Teams Accountant Systems Relationship Specialty Start Date End Date Elsewhere, Pcp PCP - General Family Medicine 07/29/17 [facility] - Laboratory Medicine 04/12/20 [place] [phone] documented as of this encounter
--- OUTSIDE RECORDS SUMMARY | 2022-05-17 18:51 | XMS_ITS | Encounter Summary ---
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 [address] [place] [phone] 05/23/2022 Clinical Admitting/Central Communication Scheduling 05/27/2022 Comprehensive Visit Orthopedic Surgery Markus Sams M.D., Ph.D. [address] [place] [phone] 05/29/2022 Office Visit Otorhinolaryngology Dex Matta APRN, C.N.P., M.S.N. [address] [place] [phone] 05/29/2022 Office Visit Otorhinolaryngology Nadeem Maradiaga, P.Murtaza.-Arley., M.S. [address] [place] [address] [phone] 05/31/2022 Appointment Radiology Guilherme Matt MPAS, Jennifer., M.S. [address] [place] [phone] 06/05/2022 Appointment Laboratory Medicine Angélica Granger P.A.-C. [address] [place] [phone] 06/19/2022 Appointment Laboratory Medicine Angélica Granger P.A.-C. [address] [place] [phone] 07/03/2022 Appointment Laboratory Medicine Angélica Granger P.A.-C. [address] [place] [phone] 07/17/2022 Appointment Laboratory Medicine Angélica Granger P.A.-C. [address] [place] [phone] 07/31/2022 Appointment Laboratory Medicine Angélica Granger P.A.-C. [address] [place] [phone] 08/14/2022 Appointment Laboratory Medicine Angélica Granger P.A.-C. [address] [place] [phone] 08/28/2022 Appointment Laboratory Medicine Angélica Granger P.A.-C. [address] [place] [phone] documented as of this encounter Visit Diagnoses Not on filedocumented in this encounter Additional Health Concerns Assessment Noted Time PHQ-9 Depression Total Score: 3 11/22/2019 7:34 AM CDT documented as of this encounter Care Teams Leakage Tester Relationship Specialty Start Date End Date Elsewhere, Pcp PCP - General Family Medicine 07/29/17 [facility] - Laboratory Medicine 04/12/[address] [address] documented as of this encounter
--- OUTSIDE RECORDS SUMMARY | 2022-05-17 18:52 | XMS_ITS | Encounter Summary ---
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 Preferred Communication Method: [phone] (mobile) Patient pharmacy: [id number] AT [facility] [address] [place] [phone] Additional instructions: documented in this encounter Plan of Treatment Upcoming Encounters Date Type Specialty Care Team Description 05/22/2022 Appointment Laboratory Medicine Angélica Granger P.A.-C. [address] [place] [phone] 05/23/2022 Clinical Admitting/Central Communication Scheduling 05/27/2022 Comprehensive Visit Orthopedic Surgery Markus Sams M.D., Ph.D. [address] [place] [address] [phone] 05/29/2022 Office Visit Otorhinolaryngology Dex Matta APRN, C.N.P., M.S.N. [address] [place] [address] [phone] 05/29/2022 Office Visit Otorhinolaryngology Nadeem Maradiaga, P.Murtaza.-Arley., M.S. [address] [place] [phone] 05/31/2022 Appointment Radiology Guilherme Matt, RASTA, PMaryanne., M.S. [address] [place] [address] [phone] 06/05/2022 Appointment Laboratory Medicine Angélica Granger P.A.-C. [address] [place] [phone] 06/19/2022 Appointment Laboratory Medicine Angélica Granger P.A.-C. [address] [place] [address] [phone] 07/03/2022 Appointment Laboratory Medicine Angélica Grnager P.A.-C. [address] [place] [phone] 07/17/2022 Appointment Laboratory Medicine Angélica Granger P.A.-C. [address] [place] [phone] 07/31/2022 Appointment Laboratory Medicine Angélica Granger P.A.-C. [address] [place] [phone] 08/14/2022 Appointment Laboratory Medicine Angélica Granger P.A.-C. [address] [place] [phone] 08/28/2022 Appointment Laboratory Medicine Angélica Granger P.A.-C. [address] [place] [phone] documented as of this encounter Visit Diagnoses Not on filedocumented in this encounter Additional Health Concerns Assessment Noted Time PHQ-9 Depression Total Score: 3 11/22/2019 7:34 AM CDT documented as of this encounter Care Teams Head Coach Relationship Specialty Start Date End Date Elsewhere, Pcp PCP - General Family Medicine 07/29/17 documented as of this encounter
--- OUTSIDE RECORDS SUMMARY | 2022-05-17 18:52 | XMS_ITS | Encounter Summary ---
:1955 Author Organization [facility] Address [address] [place] [address] Care Team Providers Name Role Phone Elsewhere, Pcp Primary Care Provider Unavailable Reason for Visit Reason Comments Appointment 05/04 Encounter Details Date Type Department Care Team Description 04/27/2020 Clinical Communication Division of Sania [place] (05/04) Nephrology and Sada Hobson Hypertension in [address] [place], [place] [address] [place] [phone] [place], [place] [phone] (Work) [phone] Social History Tobacco Use Types Packs/Day Years [...] at Date Recorded Male 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 He has a few questionable spots. Will he order a Dermconsult? He would like to schedule same day as nurse visit 05/04. Call patient back when done. Thank you. MAN documented in this encounter Plan of Treatment Upcoming Encounters Date Type Specialty Care Team Description 05/22/2022 Appointment Laboratory Medicine Angélica Granger P.A.-C. [address] [place] [phone] 05/23/2022 Clinical Admitting/Central Communication Scheduling 05/27/2022 Comprehensive Visit Orthopedic Surgery Markus Sams M.D., Ph.D. [address] [place] [phone] 05/29/2022 Office Visit Otorhinolaryngology Dex Matta APRN, C.N.P., M.S.N. [address] [place] [phone] 05/29/2022 Office Visit Otorhinolaryngology Nadeem Maradiaga P.A.-C., M.S. [address] [place] [address] [phone] 05/31/2022 Appointment Radiology Guilherme Matt MPAS, P.A.-C., M.S. [address] [place] [phone] 06/05/2022 Appointment Laboratory Medicine Angélica Granger P.A.-C. [address] [place] [phone] 06/19/2022 Appointment Laboratory Medicine Angélica Granger P.A.-C. [address] [place] [phone] 07/03/2022 Appointment Laboratory Medicine Angélica Granger P.A.-C. [address] [place] [phone] 07/17/2022 Appointment Laboratory Medicine Angélica Granger P.A.-C. [address] [place] [phone] 07/31/2022 Appointment Laboratory Medicine Angélica Granger P.A.-C. [address] [place] [phone] 08/14/2022 Appointment Laboratory Medicine Angélica Granger P.A.-C. [address] [place] [phone] 08/28/2022 Appointment Laboratory Medicine Angélica Granger P.A.-C. [address] [place] [phone] documented as of this encounter Visit Diagnoses Not on filedocumented in this encounter Additional Health Concerns Assessment Noted Time PHQ-9 Depression Total Score: 3 11/22/2019 7:34 AM CDT documented as of this encounter Care Teams Administrative Medical Director Relationship Specialty Start Date End Date Elsewhere, Pcp PCP - General Family Medicine 07/29/17 [facility] - Laboratory Medicine 04/12/[address] [address] documented as of this encounter
--- OUTSIDE RECORDS SUMMARY | 2022-05-17 18:52 | XMS_ITS | Encounter Summary ---
:1955 Author Organization [facility] Address [address] [place] [address] Care Team Providers Name Role Phone Elsewhere, Pcp Primary Care Provider Unavailable Reason for Visit Reason Comments High BP with headache Encounter Details Date Type Department Care Team Description 04/21/2020 Clinical Communication Division of [place], High BP with Nephrology and Sada Hobson headache Hypertension in [address] [place], [place] [address] [facility] [address] [place], [place] [phone] (Work) [phone] Social History Tobacco Use Types Packs/Day Years [...] at Date Recorded 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 [address] [place] [phone] 05/23/2022 Clinical Admitting/Central Communication Scheduling 05/27/2022 Comprehensive Visit Orthopedic Surgery Markus Sams M.D., Ph.D. [address] [place] [phone] 05/29/2022 Office Visit Otorhinolaryngology Dex Matta APRN, C.N.P., M.S.N. [address] [place] [phone] 05/29/2022 Office Visit Otorhinolaryngology Nadeem Maradiaga, P.Murtaza.Marie., M.S. [address] [place] [phone] 05/31/2022 Appointment Radiology Guilherme Matt, RASTA, P.Tom., M.S. [address] [place] [phone] 06/05/2022 Appointment Laboratory Medicine Angélica Granger P.A.-C. [address] [place] [phone] 06/19/2022 Appointment Laboratory Medicine Angélica Granger P.A.-C. [address] [place] [phone] 07/03/2022 Appointment Laboratory Medicine Angélica Granger P.A.-C. [address] [place] [phone] 07/17/2022 Appointment Laboratory Medicine Angélica Granger P.A.-C. [address] [place] [phone] 07/31/2022 Appointment Laboratory Medicine Angélica Granger P.A.-C. [address] [place] [phone] 08/14/2022 Appointment Laboratory Medicine Angélica Granger P.A.-C. [address] [place] [phone] 08/28/2022 Appointment Laboratory Medicine Angélica Granger P.A.-C. [address] [place] [phone] documented as of this encounter Visit Diagnoses Not on filedocumented in this encounter Additional Health Concerns Assessment Noted Time PHQ-9 Depression Total Score: 3 11/22/2019 7:34 AM CDT documented as of this encounter Care Teams Plasma Table Operator Relationship Specialty Start Date End Date Elsewhere, Pcp PCP - General Family Medicine 07/29/[address] [facility] - Laboratory Medicine 04/12/[address] [address] documented as of this encounter
--- OUTSIDE RECORDS SUMMARY | 2022-05-17 18:52 | XMS_ITS | Encounter Summary ---
:1955 Author Organization [facility] Address [address] [place] [address] Care Team Providers Name Role Phone Elsewhere, Pcp Primary Care Provider Unavailable Reason for Visit Reason Comments Medical Management Encounter Details Date Type Department Care Team Description 02/02/2020 Documentation Trung Swenson, Ma dical Management Center for Transplantation PColt Savage, M.S. 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 [address] [place] [address] [phone] 05/23/2022 Clinical Admitting/Central Communication Scheduling 05/27/2022 Comprehensive Visit Orthopedic Surgery Markus Sams M.D., Ph.D. [address] [place] [address] [phone] 05/29/2022 Office Visit Otorhinolaryngology Dex Matta APRN, C.N.P., M.S.N. [address] [place] [phone] 05/29/2022 Office Visit Otorhinolaryngology Nadeem Maradiaga P.A.-C., M.S. [address] [place] [phone] 05/31/2022 Appointment Radiology Guilherme Matt MPAS, P.A.-C., M.S. [address] [place] [phone] 06/05/2022 Appointment Laboratory Medicine Angélica Granger P.A.-C. [address] [place] [phone] 06/19/2022 Appointment Laboratory Medicine Angélica Granger P.A.-C. [address] [place] [phone] 07/03/2022 Appointment Laboratory Medicine Angélica Granger P.A.-C. [address] [place] [phone] 07/17/2022 Appointment Laboratory Medicine Angélica Granger P.A.-C. [address] [place] [phone] 07/31/2022 Appointment Laboratory Medicine Angélica Granger P.A.-C. [address] [place] [phone] 08/14/2022 Appointment Laboratory Medicine Angélica Granger P.A.-C. [address] [place] [phone] 08/28/2022 Appointment Laboratory Medicine Angélica Granger P.A.-C. [address] [place] [phone] documented as of this encounter Visit Diagnoses Not on filedocumented in this encounter Additional Health Concerns Assessment Noted Time PHQ-9 Depression Total Score: 3 11/22/2019 7:34 AM CDT documented as of this encounter Care Teams Assistant Scientist Relationship Specialty Start Date End Date Elsewhere, Pcp PCP - General Family Medicine 07/29/17 documented as of this encounter
--- OUTSIDE RECORDS SUMMARY | 2022-05-17 18:52 | XMS_ITS | Encounter Summary ---
:1955 Author Organization [facility] Address [address] [place] [address] Care Team Providers Name Role Phone Elsewhere, Pcp Primary Care Provider Unavailable Reason for Visit Reason Onset Date Comments Outpatient COVID-19 Testing 04/13/2020 Encounter Details Date Type Department Care Team Description 04/13/2020 External Outreach Department of Mushtaq Salas Infect [facility] Internal Medicine in J, D.O. 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 - 04/13/2020 9:46 AM CDT Encounter created for the drive-through COVID-19 testing. documented in this encounter Plan of Treatment Upcoming Encounters Date Type Specialty Care Team Description 05/22/2022 Appointment Laboratory Medicine Angélica Granger P.AModesto. [address] [place] [phone] 05/23/2022 Clinical Admitting/Central Communication Scheduling 05/27/2022 Comprehensive Visit Orthopedic Surgery Markus Sams M.D., Ph.D. [address] [place] [phone] 05/29/2022 Office Visit Otorhinolaryngology Dex Matta APRN, C.N.P., M.S.N. [address] [place] [phone] 05/29/2022 Office Visit Otorhinolaryngology Nadeem Maradiaga P.A.-C., M.S. [address] [place] [phone] 05/31/2022 Appointment Radiology Guilherme Matt MPAS, P.A.-C., M.S. [address] [place] [phone] 06/05/2022 Appointment Laboratory Medicine Angélica Granger P.A.-C. [address] [place] [phone] 06/19/2022 Appointment Laboratory Medicine Angélica Granger P.A.-C. [address] [place] [phone] 07/03/2022 Appointment Laboratory Medicine Angélica Granger P.A.-C. [address] [place] [phone] 07/17/2022 Appointment Laboratory Medicine Angélica Granger P.A.-C. [address] [place] [phone] 07/31/2022 Appointment Laboratory Medicine Anéglica Granger P.A.-C. [address] [place] [phone] 08/14/2022 Appointment Laboratory Medicine Angélica Granger P.A.-C. [address] [place] [phone] 08/28/2022 Appointment Laboratory Medicine Angélica Granger P.A.-C. [address] [place] [phone] documented as of this encounter Procedures Procedure Name Priority Date/Time Associated Diagnosis Comme nts SARS CORONAVIRUS-2 Routine 04/13/2020 12:18 PM Infection Upper Results for this RNA, V CDT Respiratory procedure are i n the results section. documented in this encounter Results SARS Coronavirus-2 RNA, V Symptomatic (04/13/2020 12:18 PM CDT) [facility] Method Time Signature SARS-CoV-2 Swab, 04/14/2020 [...] is performed using the Aptima SARS-CoV-2 assay ([employer] which has received Emergency Use Authori zation (EUA) by the U.S. Food and Drug Administration. Fact sheets for this Emergency Use Autho rization (EUA) assay can be found at the following links: For Healthcare Providers: https://www.fd a.gov/media/610701/download For Patients: https://www.fda.gov/media/ 207160/download Specimen Anatomical Collection Method Collection Time Receive d Time (Source) Location / / Volume Laterality Varies 04/13/2020 12:18 04/13/2020 7:17 (Nasopharynx) PM CDT PM CDT Mushtaq Salas D.O. LAB MICROBIOLOGY - GENERAL O RDERABLES Performing Organization Address City/State/ZIP Code Phon e Number [facility]- [address] [place] [address] [place] [address] [address] documented in this encounter Visit Diagnoses Diagnosis Infection Upper Respiratory - Primary documented in this encounter Additional Health Concerns Infection Onset Date Last Indicated Resolved Time COVID19 Pending 04/13/2020 04/13/2020 04/14/2020 2:09 AM CDT Assessment Noted Time PHQ-9 Depression Total Score: 3 11/22/2019 7:34 AM CDT documented as of this encounter Care Teams Retirement Actuary Relationship Specialty Start Date End Date Elsewhere, Pcp PCP - General Family Medicine 07/29/17 [facility] - Laboratory Medicine 04/12/[address] [address] documented as of this encounter
--- OUTSIDE RECORDS SUMMARY | 2022-05-17 18:52 | XMS_ITS | Encounter Summary ---
:1955 Author Organization [facility] Address [address] [place] [address] Care Team Providers Name Role Phone Elsewhere, Pcp Primary Care Provider Unavailable Encounter Details Date Type Department Care Team Description 04/21/2020 Documentation Division of Nephrology and [place], Hypertension in [place], Kavya house M.D. 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 [address] [place] [phone] 05/23/2022 Clinical Admitting/Central Communication Scheduling 05/27/2022 Comprehensive Visit Orthopedic Surgery Markus Sams M.D., Ph.D. [address] [place] [phone] 05/29/2022 Office Visit Otorhinolaryngology Dex Matta APRN, C.N.P., M.S.N. [address] [place] [phone] 05/29/2022 Office Visit Otorhinolaryngology Nadeem Maradiaga P.A.-C., M.S. [address] [place] [phone] 05/31/2022 Appointment Radiology Guilherme Matt MPAS, P.A.-C., M.S. [address] [place] [phone] 06/05/2022 Appointment Laboratory Medicine Angélica Granger P.A.-C. [address] [place] [phone] 06/19/2022 Appointment Laboratory Medicine Angélica Granger P.A.-C. [address] [place] [phone] 07/03/2022 Appointment Laboratory Medicine Angélica Granger P.A.-C. [address] [place] [phone] 07/17/2022 Appointment Laboratory Medicine Angélica Granger P.A.-C. [address] [place] [phone] 07/31/2022 Appointment Laboratory Medicine Angélica Granger P.A.-C. [address] [place] [phone] 08/14/2022 Appointment Laboratory Medicine Angélica Granger P.A.-C. [address] [place] [phone] 08/28/2022 Appointment Laboratory Medicine Angélica Granger P.A.-C. [address] [place] [phone] documented as of this encounter Visit Diagnoses Not on filedocumented in this encounter Additional Health Concerns Assessment Noted Time PHQ-9 Depression Total Score: 3 11/22/2019 7:34 AM CDT documented as of this encounter Care Teams Nutrition Teacher Relationship Specialty Start Date End Date Elsewhere, Pcp PCP - General Family Medicine 07/29/17 [facility] - Laboratory Medicine 04/12/20 [place] [phone] documented as of this encounter
--- OUTSIDE RECORDS SUMMARY | 2022-05-17 18:52 | XMS_ITS | Encounter Summary ---
:1955 Author Organization [facility] Address [address] [place] [address] Care Team Providers Name Role Phone Elsewhere, Pcp Primary Care Provider Unavailable Encounter Details Date Type Department Care Team Description 01/31/2020 Hospital Encounter Department of Leonid Gonzalez Liver Laboratory Medicine Sada Camejo (HCC) and Pathology, [address] [place] [address] in [place] [phone] [place] [phone] [place] [address] (Work) [place], [place] [phone] (Fax) [phone] Social History Tobacco Use Types Packs/Day Years [...] at Date Recorded 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 Medication Therapy Alf Not Anticoagulant tacrolimus [...] Laboratory Medicine Angélica Granger P.A.-C. [address] [place] [phone] 05/23/2022 Clinical Admitting/Central Communication Scheduling 05/27/2022 Comprehensive Visit Orthopedic Surgery Markus Sams M.D., Ph.D. [address] [place] [address] [phone] 05/29/2022 Office Visit Otorhinolaryngology Dex Matta, RAMNOA, C.N.P., M.S.N. [address] [place] [address] [phone] 05/29/2022 Office Visit Otorhinolaryngology Nadeem Maradiaga, P.A.-C., M.S. [address] [place] [address] [phone] 05/31/2022 Appointment Radiology Guilherme Matt MPAS, P.A.-C., M.S. [address] [place] [phone] 06/05/2022 Appointment Laboratory Medicine Angélica Granger P.A.-C. [address] [place] [phone] 06/19/2022 Appointment Laboratory Medicine Angélica Granger P.A.-C. [address] [place] [phone] 07/03/2022 Appointment Laboratory Medicine Angélica Granger P.A.-CDemetrius [address] [place] [phone] 07/17/2022 Appointment Laboratory Medicine Angélica Granger P.A.-CDemetrius [address] [place] [phone] 07/31/2022 Appointment Laboratory Medicine Angélica Granger P.A.-C. [address] [place] [phone] 08/14/2022 Appointment Laboratory Medicine Angélica Granger P.A.-CDemetrius [address] [place] [phone] 08/28/2022 Appointment Laboratory Medicine Angélica Granger P.A.-CDemetrius [address] [place] [phone] documented as of this encounter Procedures Procedure [...] (01/31/2020 7:52 AM CDT) Analysis Performed At [facility] Time Signature Potassium, S 4.2 3.6 - [...] 01/31/2020 DTL Black/ mL/min/BSA 8:49 AM CDT Barbadian Comment: ----ADDITIONAL INFORMATION---- Estimated GFR calculated [...] M.D. LAB BLOOD ADD-ON Performing Organization Address City/[facility] Code Phon e Number [facility] - [address] [place], [place] [address] [place] [address] Laboratories-[facility] [address] [facility] (ABNORMAL) Tacrolimus, B (01/31/2020 7:52 AM CDT) P athologist Signature Tacrolimus, B 2.4 (L) 5.0-15.0 01/31/2020 [facility] (Trough) 1:23 PM CDT ng/mL Comment: ----ADDITIONAL [...] performa nce characteristics determined by [facility] in a manner consistent with CLIA requirements. This test has not been cleared or approved by the U.S. Mer d and Drug Administration. Specimen Anatomical Collection Method Collection Time Receive d Time (Source) Location / / Volume Laterality Blood (Blood, 01/31/2020 7:52 AM 01/31/20 20 Venous) CDT 10:33 AM CDT Leonid Gonzalez M.D. LAB BLOOD NON ADD-ON Performing Organization Address City/State/ZIP Code Phon e Number [facility] [address] [place], [place] [address] [facility] [place] [address] Laboratory Medicine and Pathology [address] [place] (ABNORMAL) CBC with Differential, Blood (01/31/2020 7:52 AM CDT) Patholo gist Method Time Signature [...] HEART INSTITUTE LAB[facility] - [address] [place], [place] [address] [facility] [place] [address] Laboratories-[facility] [address] documented in this encounter Visit Diagnoses Diagnosis Transplant Liver (HCC) documented in this encounter Additional Health Concerns Assessment Noted Time PHQ-9 Depression Total Score: 3 11/22/2019 7:34 AM CDT documented as of this encounter Care Teams Inspector Coated Fabrics Relationship Specialty Start Date End Date Elsewhere, Pcp PCP - General Family Medicine 07/29/17 documented as of this encounter
--- OUTSIDE RECORDS SUMMARY | 2022-05-17 18:52 | XMS_ITS | Encounter Summary ---
:1955 Author Organization [facility] Address [address] [place] [address] Care Team Providers Name Role Phone Elsewhere, Pcp Primary Care Provider Unavailable Reason for Visit Reason Comments Med Refill Encounter Details Date Type Department Care Team Description 03/17/2020 Refill Division of Nephrology and Mihir Jean RDemetriusNDemetrius Med Refill Hypertension in [place], [facility] [address] [place] [address] [place] [address] [place], [place] [address] [phone] Social History Tobacco Use Types Packs/Day Years [...] Date Recorded Male 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 [address] [place] [phone] 05/23/2022 Clinical Admitting/Central Communication Scheduling 05/27/2022 Comprehensive Visit Orthopedic Surgery Markus Sams M.D., Ph.D. [address] [place] [phone] 05/29/2022 Office Visit Otorhinolaryngology Dex Matta APRN, C.N.P., M.S.N. [address] [place] [phone] 05/29/2022 Office Visit Otorhinolaryngology Nadeem Maradiaga, P.Murtaza.-Arley., M.S. [address] [place] [address] [phone] 05/31/2022 Appointment Radiology Guilherme Matt MPAS, Jennifer., M.S. [address] [place] [address] [phone] 06/05/2022 Appointment Laboratory Medicine Angélica Granger P.A.-C. [address] [place] [address] [phone] 06/19/2022 Appointment Laboratory Medicine Angélica Granger P.A.-C. [address] [place] [phone] 07/03/2022 Appointment Laboratory Medicine Angélica Granger P.A.-C. [address] [place] [phone] 07/17/2022 Appointment Laboratory Medicine Angélica Granger P.A.-C. [address] [place] [phone] 07/31/2022 Appointment Laboratory Medicine Angélica Granger P.A.-C. [address] [place] [phone] 08/14/2022 Appointment Laboratory Angélica Royal P.A.-C. [address] [place] [phone] 08/28/2022 Appointment Laboratory Angélica Royal P.A.-C. [address] [place] [phone] documented as of this encounter Visit Diagnoses Diagnosis Hypertension Essential Primary documented in this encounter Additional Health Concerns Assessment Noted Time PHQ-9 Depression Total Score: 3 11/22/2019 7:34 AM CDT documented as of this encounter Care Teams Irrigator Overhead Relationship Specialty Start Date End Date Elsewhere, Pcp PCP - General Family Medicine 07/29/17 documented as of this encounter
--- OUTSIDE RECORDS SUMMARY | 2022-05-17 18:52 | XMS_ITS | Encounter Summary ---
:1955 Author Organization [facility] Address [address] [place] [address] Care Team Providers Name Role Phone Elsewhere, Pcp Primary Care Provider Unavailable Encounter Details Date Type Department Care Team Description 02/02/2020 Orders Only Curt Goldberg, [place] splant Liver (HCC) (Primary Dx); Center for Lilia Azevedo R.N., Medication [facility] Not Anticoagulant Transplantation and C.C.T.C. 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 [address] [place] [phone] 05/23/2022 Clinical Admitting/Central Communication Scheduling 05/27/2022 Comprehensive Visit Orthopedic Surgery Markus Sams M.D., Ph.D. [address] [place] [phone] 05/29/2022 Office Visit Otorhinolaryngology Dex Matta APRN, C.N.P., M.S.N. [address] [place] [phone] 05/29/2022 Office Visit Otorhinolaryngology Nadeem Maradiaga, P.Murtaza.-Arely., M.S. [address] [place] [address] [phone] 05/31/2022 Appointment Radiology Guilherme Matt MPAS, Jennifer., M.S. [address] [place] [address] [phone] 06/05/2022 Appointment Laboratory Medicine Angélica Granger P.A.-C. [address] [place] [phone] 06/19/2022 Appointment Laboratory Medicine Angélica Granger P.A.-C. [address] [place] [phone] 07/03/2022 Appointment Laboratory Medicine Angélica Granger P.A.-C. [address] [place] [phone] 07/17/2022 Appointment Laboratory Medicine Angélica Granger P.A.-C. [address] [place] [phone] 07/31/2022 Appointment Laboratory Medicine Angélica Granger P.A.-C. [address] [place] [phone] 08/14/2022 Appointment Laboratory Angélica Royal P.A.-C. [address] [place] [phone] 08/28/2022 Appointment Laboratory Angélica Royal P.A.-C. [address] [place] [phone] documented as of this encounter Visit Diagnoses Diagnosis Transplant Liver (HCC) - Primary Medication Therapy Nursing Home Not Anticoa gulant documented in this encounter Additional Health Concerns Assessment Noted Time PHQ-9 Depression Total Score: 3 11/22/2019 7:34 AM CDT documented as of this encounter Care Teams Can Reconditioner Relationship Specialty Start Date End Date Elsewhere, Pcp PCP - General Family Medicine 07/29/17 documented as of this encounter
--- OUTSIDE RECORDS SUMMARY | 2022-05-17 18:52 | XMS_ITS | Encounter Summary ---
:1955 Author Organization [facility] Address [address] [place] [address] Care Team Providers Name Role Phone Elsewhere, Pcp Primary Care Provider Unavailable Reason for Referral MRI/CAT/PET Scan (Routine) - Closed Specialty Diagnoses / Procedures Referred By Contact Refer red To Contact Radiology Diagnoses Cough Unspecified Type Transplant Liver (HCC) Trung Plasencia P.A.-C., [facility] Procedures CT Chest without IV Contrast M.S. 200 [place], [place] [phone] Referral ID Status Reason Start Date Expiration Date Visits Requ ested Visits Authorized [id number] Closed 01/26/2020 01/25/2021 1 1 Reason for Visit MRI/CAT/PET Scan (Routine) - Closed Specialty Diagnoses / Procedures Referred By Contact Refer red To Contact Radiology Diagnoses Cough Unspecified Type Transplant Liver (HCC) Trung Plasencia P.A.-C., [facility] Procedures CT Chest without IV Contrast M.S. [address] [place], [place] [phone] Referral ID Status Reason Start Date Expiration Date Visits Requ ested Visits Authorized [id number] Closed 01/26/2020 01/25/2021 1 1 Encounter Details Date Type Department Care Team Description 01/31/2020 Hospital Encounter Department of Trung Plasencia; Radiology, Kd Stern P.A.-C., Transplant Liver (HCC) Building, in 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 amoxicillin-pot Take 1 tablet by 42 tablet [...] MOUTH TWICE DAILY tabletIndications: Transplant Liver ([facility]) predniSONE (DELTASONE) Take 1 tablet (10 15 tablet 0 201905/22/2020 10 mg tablet mg total) by mouth daily. predniSONE (DELTASONE) 5 Take 1 tablet (5 mg 90 tablet 3 07/20/2020 mg tabletIndications: total) by mouth Transplant Liver ([facility]), daily. Medication Therapy Detention Not Anticoagulant tacrolimus (PROGRAF) 0.5 Take 2 capsules (1 360 capsule 3 07/20/2020 mg capsuleIndications: mg total) by mouth Transplant Liver ([facility]), 2 (two) times a Medication [...] Laboratory Medicine Angélica Granger P.A.-C. [address] [place] [phone] 05/23/2022 Clinical Admitting/Central Communication Scheduling 05/27/2022 Comprehensive Visit Orthopedic Surgery Markus Sams M.D., Ph.D. [address] [place] [phone] 05/29/2022 Office Visit Otorhinolaryngology Dex Matta APRN, C.N.P., M.S.N. [address] [place] [phone] 05/29/2022 Office Visit Otorhinolaryngology Nadeem Maradiaga, Jennifer., M.S. [address] [place] [phone] 05/31/2022 Appointment Radiology Guilherme Matt, RASTA, Jennifer., M.S. [address] [place] [phone] 06/05/2022 Appointment Laboratory Medicine Angélica rGanger P.A.-C. [address] [place] [phone] 06/19/2022 Appointment Laboratory Medicine Angélica Granger P.A.-C. [address] [place] [phone] 07/03/2022 Appointment Laboratory Medicine Angélica Granger P.A.-C. [address] [place] [phone] 07/17/2022 Appointment Laboratory Medicine Angélica Granger P.A.-C. [address] [place] [phone] 07/31/2022 Appointment Laboratory Medicine Angélica Granger P.A.-C. [address] [place] [address] [phone] 08/14/2022 Appointment Laboratory Medicine Angélica Granger P.A.-C. [address] [place] [address] [phone] 08/28/2022 Appointment Laboratory Medicine Angélica Granger P.A.-C. [address] [place] [phone] documented as of this encounter Procedures Procedure [...] documented as of this encounter Care Teams Structural Steel Erector Relationship Specialty Start Date End Date Elsewhere, Pcp PCP - General Family Medicine 07/29/17 documented as of this encounter
--- OUTSIDE RECORDS SUMMARY | 2022-05-17 18:52 | XMS_ITS | Encounter Summary ---
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 Reason for call: Chief Complaint Patient presents with ??? Med Refill Pertinent Information: Pt called and says he has 5 days left of his Rx: Atorvastatin 10mg. Please send new script to pharmacy. Thanks! Preferred Communication Method: [phone] (mobile) Patient pharmacy: [id number] [place] [phone] Additional instructions: documented in this encounter Plan of Treatment Upcoming Encounters Date Type Specialty Care Team Description 05/22/2022 Appointment Laboratory Medicine Angélica Granger P.A.-C. [address] [place] [phone] 05/23/2022 Clinical Admitting/Central Communication Scheduling 05/27/2022 Comprehensive Visit Orthopedic Surgery Markus Sams M.D., Ph.D. [address] [place] [phone] 05/29/2022 Office Visit Otorhinolaryngology Dex Matta APRN, CDemetriusNFabrice., M.S.N. [address] [place] [address] [phone] 05/29/2022 Office Visit Otorhinolaryngology Nadeem Maradiaga, Edmundo, M.S. [address] [place] [phone] 05/31/2022 Appointment Radiology Guilherme Matt MPAS, P.A.-C., M.S. [address] [place] [phone] 06/05/2022 Appointment Laboratory Medicine Angélica Granger P.A.-C. [address] [place] [phone] 06/19/2022 Appointment Laboratory Medicine Angélica Granger P.A.-C. [address] [place] [phone] 07/03/2022 Appointment Laboratory Medicine Angélica Granger P.A.-C. [address] [place] [phone] 07/17/2022 Appointment Laboratory Medicine Angélica Granger P.A.-C. [address] [place] [phone] 07/31/2022 Appointment Laboratory Medicine Angélica Granger P.A.-C. [address] [place] [phone] 08/14/2022 Appointment Laboratory Medicine Angélica Granger P.A.-C. [address] [place] [phone] 08/28/2022 Appointment Laboratory Medicine Angélica Granger P.A.-C. [address] [place] [phone] documented as of this encounter Visit Diagnoses Not on filedocumented in this encounter Additional Health Concerns Assessment Noted Time PHQ-9 Depression Total Score: 3 11/22/2019 7:34 AM CDT documented as of this encounter Care Teams Botany Technician Relationship Specialty Start Date End Date Elsewhere, Pcp PCP - General Family Medicine 07/29/17 documented as of this encounter
--- OUTSIDE RECORDS SUMMARY | 2022-05-17 18:52 | XMS_ITS | Encounter Summary ---
:1955 Author Organization [facility] Address [address] [place] [address] Care Team Providers Name Role Phone Elsewhere, Pcp Primary Care Provider Unavailable Reason for Visit Reason Comments Aspiration Encounter Details Date Type Department Care Team Description 02/02/2020 Clinical Communication Curt Bishop, Aspiration Center for Lilia Azevedo R.N., Transplantation and C.C.T.C. 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 [address] [place] [phone] 05/23/2022 Clinical Admitting/Central Communication Scheduling 05/27/2022 Comprehensive Visit Orthopedic Surgery Markus Sams M.D., Ph.D. [address] [place] [address] [phone] 05/29/2022 Office Visit Otorhinolaryngology Dex Matta APRN, C.N.P., M.S.N. [address] [place] [phone] 05/29/2022 Office Visit Otorhinolaryngology Nadeem Maradiaga P.A.-C., M.S. [address] [place] [address] [phone] 05/31/2022 Appointment Radiology Guilherme Matt MPAS, P.A.-C., M.S. [address] [place] [phone] 06/05/2022 Appointment Laboratory Medicine Angélica Granger P.A.-C. [address] [place] [phone] 06/19/2022 Appointment Laboratory Medicine Angélica Granger P.A.-C. [address] [place] [phone] 07/03/2022 Appointment Laboratory Medicine Angélica Granger P.A.-C. [address] [place] [phone] 07/17/2022 Appointment Laboratory Medicine Angélica Granger P.A.-C. [address] [place] [phone] 07/31/2022 Appointment Laboratory Medicine Angélica Granger P.A.-C. [address] [place] [phone] 08/14/2022 Appointment Laboratory Medicine Angélica Granger P.A.-C. [address] [place] [phone] 08/28/2022 Appointment Laboratory Medicine Angélica Granger P.A.-C. [address] [place] [phone] documented as of this encounter Visit Diagnoses Not on filedocumented in this encounter Additional Health Concerns Assessment Noted Time PHQ-9 Depression Total Score: 3 11/22/2019 7:34 AM CDT documented as of this encounter Care Teams Audit Specialist Relationship Specialty Start Date End Date Elsewhere, Pcp PCP - General Family Medicine 07/29/17 documented as of this encounter
--- OUTSIDE RECORDS SUMMARY | 2022-05-17 18:52 | XMS_ITS | Encounter Summary ---
:1955 Author Organization [facility] Address [address] [place] [address] Care Team Providers Name Role Phone Elsewhere, Pcp Primary Care Provider Unavailable Reason for Referral MRI/CAT/PET Scan (Routine) - Closed Specialty Diagnoses / Procedures Referred By Contact Refer red To Contact Radiology Diagnoses Cough Unspecified Type Drip Post Nasal Trung Plasencia P.A.-C., [facility] Procedures CT Sinuses without IV Contrast M.S. [address] [place] [address] Referral ID Status Reason Start Date Expiration Date Visits Requ ested Visits Authorized [id number] Closed 01/31/2020 01/30/2021 1 1 Reason for Visit MRI/CAT/PET Scan (Routine) - Closed Specialty Diagnoses / Procedures Referred By Contact Refer red To Contact Radiology Diagnoses Cough Unspecified Type Drip Post Nasal Trung Plasencia P.A.-C., [facility] Procedures CT Sinuses without IV Contrast M.S. [address] [place] [address] Referral ID Status Reason Start Date Expiration Date Visits Requ ested Visits Authorized [id number] Closed 01/31/2020 01/30/2021 1 1 Encounter Details Date Type Department Care Team Description 02/01/2020 Hospital Encounter Department of Trung Plasencia Cough ; Radiology, Bonny Goode P.A.-C..S . Drip Post Nasal Building, in [place], 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) predniSONE (DELTASONE) Take 1 tablet (10 15 tablet 0 201905/22/2020 10 mg tablet mg total) by mouth daily. predniSONE (DELTASONE) 5 Take 1 tablet (5 mg 90 tablet 3 07/20/2020 mg tabletIndications: total) by mouth Transplant Liver ([facility]), daily. Medication Therapy Communication Signals Intelligence Not Anticoagulant tacrolimus (PROGRAF) 0.5 Take 2 capsules (1 360 capsule 3 07/20/2020 mg capsuleIndications: mg total) by mouth Transplant Liver ([facility]), 2 (two) times a Medication Therapy [...] Laboratory Medicine Angélica Granger P.A.-C. [address] [place] [phone] 05/23/2022 Clinical Admitting/Central Communication Scheduling 05/27/2022 Comprehensive Visit Orthopedic Surgery Markus Sams M.D., Ph.D. [address] [place] [phone] 05/29/2022 Office Visit Otorhinolaryngology Dex Matta APRN, C.N.P., M.S.N. [address] [place] [address] [phone] 05/29/2022 Office Visit Otorhinolaryngology Nadeem Maradiaga, PMaryanne., M.S. [address] [place] [phone] 05/31/2022 Appointment Radiology Guilherme Matt MPAS, PMaryanne., M.S. [address] [place] [address] [phone] 06/05/2022 Appointment Laboratory Medicine Angélica Granger P.A.-C. [address] [place] [phone] 06/19/2022 Appointment Laboratory Medicine Angélica Granger P.A.-C. [address] [place] [address] [phone] 07/03/2022 Appointment Laboratory Medicine Angélica Granger P.A.-C. [address] [place] [phone] 07/17/2022 Appointment Laboratory Medicine Angélica Granger P.A.-C. [address] [place] [phone] 07/31/2022 Appointment Laboratory Medicine Angélica Granger P.A.-C. [address] [place] [phone] 08/14/2022 Appointment Laboratory Medicine Angélica Granger P.A.-C. [address] [place] [phone] 08/28/2022 Appointment Laboratory Medicine Angélica Granger P.A.-C. [address] [place] [phone] documented as of this encounter Procedures Procedure [...] Neuroradiology ARZ LOS, Neuroradiology T omography [facility] Specimen (Source) Anatomical Collection Method Collection [...] documented as of this encounter Care Teams Loan Interviewer Relationship Specialty Start Date End Date Elsewhere, Pcp PCP - General Family Medicine 07/29/17 documented as of this encounter
--- OUTSIDE RECORDS SUMMARY | 2022-05-17 18:52 | XMS_ITS | Encounter Summary ---
:1955 Author Organization [facility] Address [address] [place] [address] Care Team Providers Name Role Phone Elsewhere, Pcp Primary Care Provider Unavailable Reason for Referral Outpatient (Routine) - Closed Specialty Diagnoses / Procedures Referred By Contact Refer red To Contact Otorhinolaryngology Diagnoses Cough Unspecified Type Drip Post Nasal Transplant Liver (HCC) Trung Plasencia, [facility] Procedures Otorhinolaryngology - General eConsult Edmundo, M.S. [address] [place] [address] Referral ID Status Reason Start Date Expiration Date Visits Requ ested Visits Authorized [id number] Closed 01/31/2020 01/30/2021 1 1 MRI/CAT/PET Scan (Routine) - Closed Specialty Diagnoses / Procedures Referred By Contact Refer red To Contact Radiology Diagnoses Cough Unspecified Type Drip Post Nasal Trung Plasencia P.A.-C., [facility] Procedures CT Sinuses without IV Contrast M.S. [address] [place], [place] [phone] Referral ID Status Reason Start Date Expiration Date Visits Requ ested Visits Authorized [id number] Closed 01/31/2020 01/30/2021 1 1 Reason for Visit Transplant (Routine) - Closed Specialty Diagnoses / Procedures Referred By Contact Refer red To Contact Transplant Surgery / Diagnoses Cough Unspecified Type Transplant Liver (HCC) Trung Plasencia, [facility] Transplant PAdilia, M.S. [address] [place] [address] Referral ID Status Reason Start Date Expiration Date Visits Requ ested Visits Authorized [id number] Closed 01/26/2020 01/25/2021 1 1 Encounter Details Date Type Department Care Team Description 01/31/2020 Office Visit Trung Swenson Cough (Primary Dx); [facility] Edmundo Stern, Drip Post Nasal ; Transplantation and M.S. 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 HISTORY OF PRESENT ILLNESS Mr. Bruce iSngh is a 64 year old gentleman from [place], [place] s/p orthotopic liver transplantation, May 25, [...] Tendon pain ??? Citalopram Other (see comments) micehll ??? Erythromycin Base Other (see comments) Due [...] other diagnostic studies which are available in [employer] [facility] [employer] respectively. January 31, 2020 Labs: Hemoglobin 10.4, [...] Medicine cough clinic. 7. May benefit from [id number] ENT consultation depending upon results of CT sinuses. Thank you for the opportunity to participate in the care of Mr. Singh. Prescriptions for Augmentin and oral Vancomycin electronically generated to patients local pharmacy. Trung Plasencia P.A.-C., M.S. documented in this encounter Plan of Treatment Upcoming Encounters Date Type Specialty Care Team Description 05/22/2022 Appointment Laboratory Medicine Angélica Granger P.A.-C. [address] [place] [phone] 05/23/2022 Clinical Admitting/Central Communication Scheduling 05/27/2022 Comprehensive Visit Orthopedic Surgery Markus Sams M.D., Ph.D. [address] [place] [phone] 05/29/2022 Office Visit Otorhinolaryngology Dex Matta, RAMONA, C.N.P., M.S.N. [address] [place] [phone] 05/29/2022 Office Visit Otorhinolaryngology Nadeem Maradiaga, Jennifer., M.S. [address] [place] [phone] 05/31/2022 Appointment Radiology Guilherme Matt MPAS, P.A.-C., M.S. [address] [place] [phone] 06/05/2022 Appointment Laboratory Medicine Angélica Granger P.A.-C. [address] [place] [phone] 06/19/2022 Appointment Laboratory Medicine Angélica Granger P.A.-C. [address] [place] [phone] 07/03/2022 Appointment Laboratory Medicine Angélica Granger P.A.-C. [address] [place] [phone] 07/17/2022 Appointment Laboratory Medicine Angélica Granger P.A.-C. [address] [place] [phone] 07/31/2022 Appointment Laboratory Medicine Angélica Granger P.A.-C. [address] [place] [phone] 08/14/2022 Appointment Laboratory Medicine Angélica Granger P.A.-C. [address] [place] [phone] 08/28/2022 Appointment Laboratory Medicine Angélica Granger P.A.-C. [address] [place] [phone] documented as of this encounter Results (ABNORMAL) Bacterial Culture, Aerobic + Susc, Resp (02/01/2020 10:37 AM CDT) [facility] Method Time Signature Bacterial With usual 02/04/2020 [...] g/mL: Sulfamethoxazole DAVID (MCG/ML) Susceptible Trung Plasencia P.A.-C., M.S. LAB MICROBIOLOGY - GENERAL ORDERABLES Performing Organization Address City/[facility] [address]/ZIP Code Phon e Number [facility] - [address] Gram Stain (02/01/2020 10:37 AM CDT) athologist Signature Gram Stain Mixed efrem. 02/01/2020 DT White blood cells, Moderate. 11:27 AM CD T Specimen Anatomical Collection Method Collection Time Receive d Time (Source) Location / / Volume Laterality Sputum (Sputum) 02/01/2020 10:37 02/01/20 20 AM CDT 10:37 AM CDT Comment: Specimen Source Site: Sputum Trung Plasencia P.A.-C., M.S. LAB MICROBIOLOGY - GENERAL ORDERABLES Performing Organization Address [facility] [address]/[facility] Code Phon e Number [facility] - [address] Sinuses without IV Contrast (02/01/2020 [...] as of this encounter Care Teams Case Resolution Specialist Relationship Specialty Start Date End Date Elsewhere, Pcp PCP - General Family Medicine 07/29/17 documented as of this encounter
--- OUTSIDE RECORDS SUMMARY | 2022-05-17 18:52 | XMS_ITS | Encounter Summary ---
:1955 Author Organization [facility] Address [address] [place] [address] Care Team Providers Name Role Phone Elsewhere, Pcp Primary Care Provider Unavailable Reason for Visit Outpatient (Routine) - Closed Specialty Diagnoses / Procedures Referred By Contact Refer red To Contact Otorhinolaryngology Diagnoses Cough Unspecified Type Drip Post Nasal [facility] - General eConsult PMaryanne., M.S. [address] [place] [address] Referral ID Status Reason Start Date Expiration Date Visits Requ ested Visits Authorized [id number] Closed 01/31/2020 01/30/2021 1 1 Encounter Details Date Type Department Care Team Description 02/01/2020 Internal Department of Toro Pena Cough; E-Consult Otorhinolaryngology samm Galvan M.D. Drip Post Nasal; [place], [place] [address] [place] [address] Transplant Liver (HCC) [address] [place] [phone] Social History Tobacco Use Types Packs/Day Years [...] 12/15/2021 organizations such as rastafarian groups, unions, fraSafetySkills or athletic groups, or school groups? 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 [address] [place] [phone] 05/23/2022 Clinical Admitting/Central Communication Scheduling 05/27/2022 Comprehensive Visit Orthopedic Surgery Markus Sams M.D., Ph.D. [address] [place] [address] [phone] 05/29/2022 Office Visit Otorhinolaryngology Dex Matta APRN, C.N.P., M.S.N. [address] [place] [address] [phone] 05/29/2022 Office Visit Otorhinolaryngology Nadeem Maradiaga, Jennifer., M.S. [address] [place] [phone] 05/31/2022 Appointment Radiology Guilherme Matt MPAS, Jennifer., M.S. [address] [place] [phone] 06/05/2022 Appointment Laboratory Medicine Angélica Granger P.A.-C. [address] [place] [address] [phone] 06/19/2022 Appointment Laboratory Medicine Angélica Granger P.A.-C. [address] [place] [phone] 07/03/2022 Appointment Laboratory Medicine Angélica Granger P.A.-C. [address] [place] [phone] 07/17/2022 Appointment Laboratory Medicine Angélica Granger P.A.-C. [address] [place] [phone] 07/31/2022 Appointment Laboratory Medicine Angélica Granger P.A.-C. [address] [place] [phone] 08/14/2022 Appointment Laboratory Medicine Angélica Granger P.A.-C. [address] [place] [phone] 08/28/2022 Appointment Laboratory Medicine Angélica Granger P.A.-C. [address] [place] [phone] documented as of this encounter Visit Diagnoses Diagnosis Cough Unspecified Type Drip Post Nasal Transplant Liver (HCC) documented in this encounter Additional Health Concerns Assessment Noted Time PHQ-9 Depression Total Score: 3 11/22/2019 7:34 AM CDT documented as of this encounter Care Teams Vice President Of Finance Relationship Specialty Start Date End Date Elsewhere, Pcp PCP - General Family Medicine 07/29/17 documented as of this encounter
--- OUTSIDE RECORDS SUMMARY | 2022-05-17 18:52 | XMS_ITS | Encounter Summary ---
:1955 Author Organization [facility] Address [address] [place] [address] Care Team Providers Name Role Phone Elsewhere, Pcp Primary Care Provider Unavailable Reason for Referral Outpatient (Routine) - Closed Specialty Diagnoses / Procedures Referred By Contact Refer red To Contact Nephrology and [facility] Hypertension Sada Hobson [facility] [place] [address] Referral ID Status Reason Start Date Expiration Date Visits Requ ested Visits Authorized [id number] Closed 04/21/2020 04/21/2021 1 1 Scheduling Instructions Follow-up blood pressure after increase torsemide Encounter Details Date Type Department Care Team Description 04/21/2020 Orders Only Division of Nephrology Mike Bailey rtension And and Hypertension in Sada Hobson Chronic Kidney Disease [place] [id number] [facility] Stage 4 (HCC) (Primary [address] [place], [place] Dx) [place] [phone] Social History Tobacco Use Types Packs/Day Years [...] at Date Recorded 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 [address] [place] [address] [phone] 05/23/2022 Clinical Admitting/Central Communication Scheduling 05/27/2022 Comprehensive Visit Orthopedic Surgery Markus Sams M.D., Ph.D. [address] [place] [address] [phone] 05/29/2022 Office Visit Otorhinolaryngology Dex Matta APRN, C.N.P., M.S.N. [address] [place] [phone] 05/29/2022 Office Visit Otorhinolaryngology Nadeem Maradiaga P.A.-C., M.S. [address] [place] [phone] 05/31/2022 Appointment Radiology Guilherme Matt MPAS, P.A.-C., M.S. [address] [place] [phone] 06/05/2022 Appointment Laboratory Medicine Angélica Granger P.A.-C. [address] [place] [phone] 06/19/2022 Appointment Laboratory Medicine Angélica Granger P.A.-C. [address] [place] [phone] 07/03/2022 Appointment Laboratory Medicine Angélica Granger P.A.-C. [address] [place] [phone] 07/17/2022 Appointment Laboratory Medicine Angélica Granger P.A.-C. [address] [place] [phone] 07/31/2022 Appointment Laboratory Medicine Angélica Granger P.A.-C. [address] [place] [phone] 08/14/2022 Appointment Laboratory Medicine Angélica Granger P.A.-C. [address] [place] [phone] 08/28/2022 Appointment Laboratory Medicine Angélica Granger P.A.-C. [address] [place] [address] Scheduled Referrals Name Type Priority Associated Order [...] as of this encounter Care Teams Hard Candy Spinner Relationship Specialty Start Date End Date Elsewhere, Pcp PCP - General Family Medicine 07/29/17 [facility] - Laboratory Medicine 04/12/[address] [address] documented as of this encounter
--- OUTSIDE RECORDS SUMMARY | 2022-05-17 18:53 | XMS_ITS | Encounter Summary ---
:1955 Author Organization [facility] Address [address] [place] [address] Care Team Providers Name Role Phone Elsewhere, Pcp Primary Care Provider Unavailable Reason for Visit Reason Comments Telephone Fever / Cough Encounter Details Date Type Department Care Team Description 12/27/2019 Clinical Curt Dove, Tele one (Fever / Communication Center for Blanca M, Cough) Transplantation and R.N. 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 [address] [place] [address] [phone] 05/29/2022 Office Visit Otorhinolaryngology Dex Matta APRN, C.N.P., M.S.N. [address] [place] [phone] 05/29/2022 Office Visit Otorhinolaryngology Nadeem Maradiaga P.A.-C., M.S. [address] [place] [phone] 05/31/2022 Appointment Radiology Guilherme Matt MPAS, Edmundo, M.S. [address] [place] [phone] 06/05/2022 Appointment Laboratory Medicine Angélica Granger P.A.-C. [address] [place] [phone] 06/19/2022 Appointment Laboratory Medicine Angélica Granger P.A.-C. [address] [place] [phone] 07/03/2022 Appointment Laboratory Medicine Angélica Granger P.A.-C. [address] [place] [phone] 07/17/2022 Appointment Laboratory Medicine Angélica Granger P.A.-C. [address] [place] [phone] 07/31/2022 Appointment Laboratory Medicine Angélica Granger P.A.-C. [address] [place] [phone] 08/14/2022 Appointment Laboratory Medicine Angélica Granger P.A.-C. [address] [place] [phone] 08/28/2022 Appointment Laboratory Medicine Angélica Granger P.A.-C. [address] [place] [address] [place] [phone] documented as of this encounter Visit Diagnoses Not on filedocumented in this encounter Additional Health Concerns Assessment Noted Time PHQ-9 Depression Total Score: 3 11/22/2019 7:34 AM CDT documented as of this encounter Care Teams Manager Ems Relationship Specialty Start Date End Date Elsewhere, Pcp PCP - General Family Medicine 07/29/17 documented as of this encounter
--- OUTSIDE RECORDS SUMMARY | 2022-05-17 18:53 | XMS_ITS | Encounter Summary ---
:1955 Author Organization [facility] Address [address] [place] [address] Care Team Providers Name Role Phone Elsewhere, Pcp Primary Care Provider Unavailable Encounter Details Date Type Department Care Team Description 12/28/2019 Orders Only Blanca Luis ansplant Liver Center for M, R.N. 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 [address] [place] [phone] 05/23/2022 Clinical Admitting/Central Communication Scheduling 05/27/2022 Comprehensive Visit Orthopedic Surgery Markus Sams M.D., Ph.D. [address] [place] [phone] 05/29/2022 Office Visit Otorhinolaryngology Dex Matta APRN, C.N.P., M.S.N. [address] [place] [phone] 05/29/2022 Office Visit Otorhinolaryngology Nadeem Maradiaga, P.A.-C., M.S. [address] [place] [phone] 05/31/2022 Appointment Radiology Guilherme Matt MPAS, P.Murtaza.-Janette, M.S. [address] [place] [phone] 06/05/2022 Appointment Laboratory Medicine GunAngélica wilcox P.A.-C. [address] [place] [phone] 06/19/2022 Appointment Laboratory Medicine Angélica Granger P.A.-C. [address] [place] [phone] 07/03/2022 Appointment Laboratory Medicine Angélica Granger P.A.-C. [address] [place] [phone] 07/17/2022 Appointment Laboratory Medicine Angélica Granger P.A.-C. [address] [place] [phone] 07/31/2022 Appointment Laboratory Medicine Angélica Granger P.A.-C. [address] [place] [phone] 08/14/2022 Appointment Laboratory Medicine Angélica Granger P.A.-C. [address] [place] [phone] 08/28/2022 Appointment Laboratory Medicine Angélica Granger P.A.-C. [address] [place] [phone] documented as of this encounter Results Bacterial [...] [facility] - [address] [place], [place] [address] [place] [address] [facility] [address] documented in this encounter Visit Diagnoses Diagnosis Transplant Liver (HCC) - Primary documented in this encounter Additional Health Concerns Assessment Noted Time PHQ-9 Depression Total Score: 3 11/22/2019 7:34 AM CDT documented as of this encounter Care Teams Mask Inspector Relationship Specialty Start Date End Date Elsewhere, Pcp PCP - General Family Medicine 07/29/17 documented as of this encounter
--- OUTSIDE RECORDS SUMMARY | 2022-05-17 18:53 | XMS_ITS | Encounter Summary ---
:1955 [facility] Address [address] [place] [address] Care Team Providers Name Role Phone Elsewhere, Pcp Primary Care Provider Unavailable Encounter Details Date Type Department Care Team Description 12/29/2019 Clinical Communication Division of [facility] Internal Medicine, [facility] in C.N[facility]P., D.N .P. [place], [place] [address] [place] [address] [address] [place] [phone] Social History Tobacco Use Types Packs/Day Years [...] this encounter Miscellaneous Notes Telephone Encounter - Rick Demetria Aaron - 12/29/2019 10:12 AM CDT Note added to appointments today 12/28 documented in this encounter Plan of Treatment Upcoming Encounters Date Type Specialty Care Team Description 05/22/2022 Appointment Laboratory Medicine Angélica Granger P.A.-C. [address] [place] [address] [phone] 05/23/2022 Clinical Admitting/Central Communication Scheduling 05/27/2022 Comprehensive Visit Orthopedic Surgery Markus Sams M.D., Ph.D. [address] [place] [phone] 05/29/2022 Office Visit Otorhinolaryngology Dex Matta APRN, C.N.P., M.S.N. [address] [place] [address] [phone] 05/29/2022 Office Visit Otorhinolaryngology Nadeem Maradiaga P.Murtaza.-Arley., M.S. [address] [place] [address] [phone] 05/31/2022 Appointment Radiology Guilherme Matt MPAS, Edmundo, M.S. [address] [place] [address] [phone] 06/05/2022 Appointment Laboratory Medicine Angélica Granger P.A.-C. [address] [place] [phone] 06/19/2022 Appointment Laboratory Medicine Angélica Granger P.A.-C. [address] [place] [address] [phone] 07/03/2022 Appointment Laboratory Medicine Angélica Granger P.A.-C. [address] [place] [phone] 07/17/2022 Appointment Laboratory Medicine Angélica Granger P.A.-C. [address] [place] [phone] 07/31/2022 Appointment Laboratory Medicine Angélica Granger P.A.-C. [address] [place] [phone] 08/14/2022 Appointment Laboratory Medicine Angélica Granger P.A.-C. [address] [place] [phone] 08/28/2022 Appointment Laboratory Medicine Angélica Granger P.A.-C. [address] [place] [address] [phone] documented as of this encounter Visit Diagnoses Not on filedocumented in this encounter Additional Health Concerns Assessment Noted Time PHQ-9 Depression Total Score: 3 11/22/2019 7:34 AM CDT documented as of this encounter Care Teams Concrete Smoother Relationship Specialty Start Date End Date Elsewhere, Pcp PCP - General Family Medicine 07/29/17 documented as of this encounter
--- OUTSIDE RECORDS SUMMARY | 2022-05-17 18:53 | XMS_ITS | Encounter Summary ---
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 Medication Therapy Fdc Not Anticoagulant tacrolimus [...] Laboratory Medicine Angélica Granger P.A.-C. [address] [place] [phone] 05/23/2022 Clinical Admitting/Central Communication Scheduling 05/27/2022 Comprehensive Visit Orthopedic Surgery Markus Sams M.D., Ph.D. [address] [place] [address] [phone] 05/29/2022 Office Visit Otorhinolaryngology Dex Matta APRN, C.N.P., M.S.N. [address] [place] [address] [phone] 05/29/2022 Office Visit Otorhinolaryngology Nadeem Maradiaga, P.A.-C., M.S. [address] [place] [phone] 05/31/2022 Appointment Radiology Guilherme Matt MPAS, P.A.-C., M.S. [address] [place] [phone] 06/05/2022 Appointment Laboratory Medicine Angélica Granger P.A.-C. [address] [place] [phone] 06/19/2022 Appointment Laboratory Medicine Angélica Granger P.A.-C. [address] [place] [phone] 07/03/2022 Appointment Laboratory Medicine Angélica Granger P.A.-C. [address] [place] [phone] 07/17/2022 Appointment Laboratory Medicine Angélica Granger P.A.-C. [address] [place] [phone] 07/31/2022 Appointment Laboratory Medicine Angélica Granger P.A.-C. [address] [place] [phone] 08/14/2022 Appointment Laboratory Medicine Angélica Granger P.A.-C. [address] [place] [phone] 08/28/2022 Appointment Laboratory Medicine Angélica Granger P.A.-C. [address] [place] [phone] documented as of this encounter Procedures Procedure [...] (ABNORMAL) Electrophoresis, Protein (12/29/2019 7:22 AM CDT) [facility] Method Time Signature Total Protein, 5.7 (L) 6.3 - 7.9 05/03/2020 [facility] S g/dL 10:46 AM CHARTERED WEALTH MANAGER Albumin 2.9 (L) 3.4 - 4.7 05/04/2020 [facility] g/dL 10:58 AM CHARTERED WEALTH MANAGER Alpha-1 0.4 (H) 0.1 - 0.3 05/04/2020 [facility] Globulin g/dL 10:58 AM CHARTERED WEALTH MANAGER Alpha-2 0.9 0.6 - 1.0 05/04/2020 [facility] Globulin g/dL 10:58 AM CHARTERED WEALTH MANAGER Beta-Globulin 0.8 0.7 - 1.2 05/04/2020 [facility] g/dL 10:58 AM CHARTERED WEALTH MANAGER Gamma-Globulin 0.8 0.6 - 1.6 05/04/2020 [facility] g/dL 10:58 AM CHARTERED WEALTH MANAGER A/G Ratio 1.02 05/04/2020 [facility] 10:58 AM CHARTERED WEALTH MANAGER Impression No apparent monoclonal protein on serum electrophoresi s. 05/04/2020 [facility] See Immunofixation. 10:58 AM CHARTERED WEALTH MANAGER Specimen Anatomical Collection Method Collection Time Receive d Time (Source) Location / / Volume Laterality Blood 12/29/2019 7:22 AM 0 CDT 10:04 AM CHARTERED WEALTH MANAGER Otoniel Davis M.D. LAB BLOOD ADD-ON Performing Organization Address City/State/ZIP Code Phon e Number [facility] [address] [place] [address] [facility] [place] [address] Laboratory Medicine and Pathology [address] MUR[place]O Immunofixation (12/29/2019 7:22 AM CDT) [facility] Method Time Signature Immunofixation No monoclonal 05/04/2020 [facility] protein 4:54 PM CHARTERED WEALTH MANAGER detected. Specimen Anatomical Collection Method Collection Time Receive d Time (Source) Location / / Volume Laterality Blood 12/29/2019 7:22 AM 0 CDT 10:04 AM CHARTERED WEALTH MANAGER Otoniel Davis M.D. LAB BLOOD NON ADD-ON Performing Organization Address City/[facility] Code Phon e Number [facility] [address] [place] [address] 05 [address] [facility] [place] [address] Laboratory Medicine and Pathology [address] [place] [address] Dr. MURILLO (ABNORMAL) Tacrolimus, B (12/29/2019 7:22 AM CDT) athologist Signature Tacrolimus, B 2.6 (L) 5.0-15.0 12/29/2019 [facility] (Trough) 2:14 PM CDT ng/mL Comment: ----ADDITIONAL [...] its performa nce characteristics determined by [facility] in a manner consistent with CLIA requirements. This test has not been cleared or approved by the U.S. Mer d and Drug Administration. Specimen Anatomical Collection Method Collection Time Receive d Time (Source) Location / / Volume Laterality Blood (Blood, 12/29/2019 7:22 AM 12/29/19 20 9:02 Venous) CDT AM CDT Angélica Granger P.A.-C. LAB BLOOD NON ADD-ON Performing Organization Address City/[facility] Code Phon e Number [facility] [address] [place] [address] 05 [address] [facility] [place] [address] Laboratory Medicine and Pathology [address] [place] [address] Dr. MURILLO (ABNORMAL) CBC no call back, [...] City/State/ZIP Code Phon e Number [facility] - 200 [place], [place] [address] [place] [address] [facility] 200 [facility] (ABNORMAL) Comprehensive Metabolic Panel (12/29/2019 7:22 [...] 12/29/2019 [facility] Black/ mL/min/BSA 8:30 AM CDT Colombian Comment: ----ADDITIONAL INFORMATION---- Estimated GFR calculated [...] Blood (Blood, 12/29/2019 7:22 AM 12/29/19 20 8:07 Venous) CDT AM CDT Angélica Granger P.A.-C. LAB BLOOD ADD-ON Performing Organization Address City/[facility] Phon e Number [facility] - [address] [place], [place] [address] [place] [address] Laboratories[facility] [address] [facility] Bilirubin, Direct (12/29/2019 7:22 AM CDT) P athologist Signature Bilirubin, <0.2 0.0 - 0.3 12/29/2019 [facility] Direct, S mg/dL 8:30 AM CDT Specimen Anatomical Collection Method Collection Time Receive d Time (Source) Location / / Volume Laterality Blood (Blood, 12/29/2019 7:22 AM 12/29/19 20 8:07 Venous) CDT AM CDT Angélica Granger P.A.-C. LAB BLOOD ADD-ON Performing Organization Address City/[facility] Phon e Number [facility] - [address] [place], [place] [address] [place], [place] [address] [place] [address] documented in this encounter Visit Diagnoses Diagnosis Transplant Liver (HCC) documented in this encounter Additional Health Concerns Assessment Noted Time PHQ-9 Depression Total Score: 3 11/22/2019 7:34 AM CDT documented as of this encounter Care Teams Mental Health Counselor Relationship Specialty Start Date End Date Elsewhere, Pcp PCP - General Family Medicine 07/29/17 documented as of this encounter
--- OUTSIDE RECORDS SUMMARY | 2022-05-17 18:53 | XMS_ITS | Encounter Summary ---
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 [address] [place] [phone] 05/23/2022 Clinical Admitting/Central Communication Scheduling 05/27/2022 Comprehensive Visit Orthopedic Surgery Markus Sams M.D., Ph.D. [address] [place] [phone] 05/29/2022 Office Visit Otorhinolaryngology Dex Matta APRN, C.N.P., M.S.N. [address] [place] [phone] 05/29/2022 Office Visit Otorhinolaryngology Nadeem Maradiaga, P.Murtaza.-Arley., M.S. [address] [place] [phone] 05/31/2022 Appointment Radiology Guilherme Matt MPAS, Jennifer., M.S. [address] [place] [address] [phone] 06/05/2022 Appointment Laboratory Medicine Angélica Granger P.A.-C. [address] [place] [address] [phone] 06/19/2022 Appointment Laboratory Medicine Angélica Granger P.A.-C. [address] [place] [phone] 07/03/2022 Appointment Laboratory Medicine Angélica Granger P.A.-C. [address] [place] [phone] 07/17/2022 Appointment Laboratory Medicine Angélica Granger P.A.-C. [address] [place] [phone] 07/31/2022 Appointment Laboratory Angélica Royal P.A.-C. [address] [place] [phone] 08/14/2022 Appointment Laboratory Angélica Royal P.A.-C. [address] [place] [phone] 08/28/2022 Appointment Laboratory Angélica Royal P.A.-C. [address] [place] [phone] documented as of this encounter Visit Diagnoses Not on filedocumented in this encounter Additional Health Concerns Assessment Noted Time PHQ-9 Depression Total Score: 3 11/22/2019 7:34 AM CDT documented as of this encounter Care Teams Sales Representative Raw Fibers Relationship Specialty Start Date End Date Elsewhere, Pcp PCP - General Family Medicine 07/29/17 documented as of this encounter
--- OUTSIDE RECORDS SUMMARY | 2022-05-17 18:53 | XMS_ITS | Encounter Summary ---
:1955 Author Organization [facility] Address [address] [place] [address] Care Team Providers Name Role Phone Elsewhere, Pcp Primary Care Provider Unavailable Encounter Details Date Type Department Care Team Description 12/29/2019 Orders Only Trung Swenson Pne umonia (Primary Dx); [facility] P.A.- C., M.S. 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 [address] [place] [phone] 05/23/2022 Clinical Admitting/Central Communication Scheduling 05/27/2022 Comprehensive Visit Orthopedic Surgery Markus Sams M.D., Ph.D. [address] [place] [phone] 05/29/2022 Office Visit Otorhinolaryngology Dex Matta APRN, C.N.P., M.S.N. [address] [place] [phone] 05/29/2022 Office Visit Otorhinolaryngology Nadeem Maradiaga, P.A.-C., M.S. [address] [place] [phone] 05/31/2022 Appointment Radiology Guilherme Matt, RASTA, PMaryanne., M.S. [address] [place] [phone] 06/05/2022 Appointment Laboratory Medicine Angélica Granger P.A.-C. [address] [place] [phone] 06/19/2022 Appointment Laboratory Medicine Angélica Granger P.A.-C. [address] [place] [address] [phone] 07/03/2022 Appointment Laboratory Medicine Angélica Granger P.A.-C. [address] [place] [address] [phone] 07/17/2022 Appointment Laboratory Medicine Angélica Granger P.A.-C. [address] [place] [address] [phone] 07/31/2022 Appointment Laboratory Medicine Angélica Granger P.A.-C. [address] [place] [address] [phone] 08/14/2022 Appointment Laboratory Medicine Angélica Granger P.A.-C. [address] [place] [address] [phone] 08/28/2022 Appointment Laboratory Medicine Angélica Granger P.A.-C. [address] [place] [address] [phone] documented as of this encounter Results Histoplasma Antigen, Urine (12/30/2019 10:43 AM CDT) [facility] Time Signature Histoplasma Ag Negative Negative 12/31/2019 [facility] Result 12:44 PM CDT Comment: No Histoplasma antigen detected. Repeat testing on a new sample if clinically indicated. This test was performed using the IMMY H istoplasma capsulatum galactomannan EIA. Histoplasma Ag Value 0.00 ng/mL 12/31/2019 12:44 PM CDT [facility] Comment: ----REFERENCE VALUE---- 0.00 - 0.10 = Negative 0.11 - 1.10 = Indeterminate >=1.11 = Positive ----ADDITIONAL INFORMATION---- This test was developed and its performa nce characteristics determined by [facility] in a manner co nsistent with CLIA requirements. This test has not bee n cleared or approved by the U.S. Food and Drug Admin istration. Specimen Anatomical Collection Method Collection Time Receive d Time (Source) Location / / Volume Laterality Urine (Urine, 12/30/2019 10:43 12/30/2019 2:24 Clean Catch) AM CDT PM CDT Trung Plasencia P.A.-C., M.SDemetrius LAB URINE ORDERABLES Performing Organization Address [facility] Phon e Number [address] CHIDI Santamaria[address] [place] [address] Laboratory Medicine and Pathology [address] [place] [address] Dr. MURILLO Aspergillus Ag (12/30/2019 9:51 AM CDT) P athologist Signature Aspergillus Ag, <0.500 <0.5 index 12/31/2019 [facility] S 8:05 AM CDT Comment: ----ADDITIONAL INFORMATION---- This is a qualitative test and the resul onel index value is not indicative of disease severity. ??Serial testing is re commended for patients at high risk for invasive aspergillosis. This assay was performed using the FDA-c leared SANDOW-Rad Platelia Aspergillus Galactomannan EIA. Specimen Anatomical Collection Method Collection Time Receive d Time (Source) Location / / Volume Laterality Blood (Blood, 12/30/2019 9:51 AM 12/30/19 20 Venous) CDT 12:33 PM CDT Trung Plasencia P.A.-C. M.S. LAB MICROBIOLOGY - BLOOD O RDERABLES Performing Organization Address [facility] Phon e Number [address] CHIDI Santamaria[address] [place] [address] Laboratory Medicine and Pathology [address] MURILLO (1, 3) Kkrc-I-Hsuqeq (Fungitell), Serum (12/30/2019 9:51 AM CDT) [facility] Method Time Signature (1, 3) <31 <60 pg/mL 12/31/2019 [facility] Ybza-U-Jkpfri, pg/mL 10:11 AM CDT Quantitative (1, 3) Negative Negative 12/31/2019 [facility] Cxrh-K-Gzgerc, 10:11 AM CDT Qualitative Comment: No (1, 3) Fzwm-O-Mcgxag detected. ?? This assay does not detect certain fungi , including Cryptococcus species, which produce very low levels of (1, 3) Vltv-Q-Buccby (BDG) and the Mucorales (e.g., Lichthemia, Mucor and Rhizopus), which are not known to produce BDG. Additionally, the yeast phase of Blastom yces dermatitidis produces little BDG and may not be detected by this assay. ----ADDITIONAL INFORMATION---- This assay was performed using the FDA-c leared Fungitell Assay ([place], [place], [facility] [place]), a [facility], [place]on HARRIET based on modification of the Limulus Amebocyte Lysate pathway. Specimen Anatomical Collection Method Collection Time Receive d Time (Source) Location / / Volume Laterality Blood (Blood, 12/30/2019 9:51 AM 12/30/19 20 Venous) CDT 12:59 PM CDT Trung Plasencia P.A.-C., M.S. LAB MICROBIOLOGY - BLOOD O RDERABLES Performing Organization Address City/State/ZIP Code Phon e Number [facility] [address] [place] [address] [facility] [place] [address] Laboratory Medicine and Pathology [address] MURILLO Coccidioides Ab w/ Reflex (12/30/2019 9:51 AM CDT) [facility] Method Time Signature Coccidioides Ab Negative Negative 12/30/2019 [facility] Screen, S 7:59 PM CDT Comment: A single negative result does not exclud e the diagnosis of coccidiomycosis. ??Repeat t esting on a new sample in 7-14 days if clinically in dicated. ----ADDITIONAL INFORMATION---- This test has been modified from the man ufacturer's instructions. Its performance characteri stics were determined by [facility] in a manner co nsistent with CLIA [...] - BLOOD O GLADYS Performing Organization Address [facility] Phon e Number [facility] [address] [place] [address] [address] [facility] [place] [address] Laboratory Medicine and Pathology [address] [place] [address] Dr. MURILLO Blastomyces Ab, EIA (12/30/2019 9:51 AM CDT) [facility] Method Time Signature Blastomyces Ab, Negative Negative 12/30/2019 [facility] EIA, S 7:59 PM CDT Comment: A [...] - BLOOD O GLADYS Performing Organization Address City/[facility] Code Phon e Number [facility] [address] [place] [address] [address] [facility] [place] [address] Laboratory Medicine and Pathology [address] [place] [address] Dr. MURILLO Cryptococcus Antigen Screen with Titer (12/30/2019 9:51 AM CDT) [facility] Method Time Signature Cryptococcus Ag Negative Negative 12/30/2019 [facility] Screen w/Titer, 2:07 PM CDT S Comment: [...] 12/30/2019 9:51 AM 12/30/19 20 Venous) CDT 12:36 PM CDT Lynn Gonzalez P.A.-C.SDemetrius LAB MICROBIOLOGY - BLOOD O GLADYS Performing Organization Address [facility] Phon e Number [facility] [address] [place] [address] [address] [facility] [place] [address] Laboratory Medicine and Pathology [address] [place] [address] Dr. MURILLO Histoplasma Ab (12/30/2019 9:51 AM CDT) [facility] Method Time Signature Histoplasma Negative Negative 01/02/2020 [facility] Mycelial 4:02 PM CDT Histoplasma Yeast Negative Negative 01/02/2020 [facility] 4:02 PM CDT Histoplasma Negative Negative 01/02/2020 [facility] Immunodiffusion 4:02 PM CDT Comment: A negative complement fixation and immun odiffusion (CF/ID) result does not exclude the diagnosis of histoplasmosis. ??Repeat testing by CF/ID in 1-2 weeks if clinically indicated. Specimen Anatomical Collection Method Collection Time Receive d Time (Source) Location / / Volume Laterality Blood (Blood, 12/30/2019 9:51 AM 12/30/19 20 Venous) CDT 12:34 PM CDT Trung Plasencia P.A.-C. M.SDemetrius LAB MICROBIOLOGY - BLOOD O GLADYS Performing Organization Address [facility] Phon e Number [facility] [address] [place] [address] SU[address] [facility] [place] [address] Laboratory Medicine and Pathology [address] [place] [address] Dr. MURILLO documented in this encounter Visit Diagnoses Diagnosis Pneumonia - Primary Chronic Cough Fever Of Unknown Origin documented in this encounter Additional Health Concerns Assessment Noted Time PHQ-9 Depression Total Score: 3 11/22/2019 7:34 AM CDT documented as of this encounter Care Teams Machine Bookkeeper Relationship Specialty Start Date End Date Elsewhere, Pcp PCP - General Family Medicine 07/29/17 documented as of this encounter
--- OUTSIDE RECORDS SUMMARY | 2022-05-17 18:53 | XMS_ITS | Encounter Summary ---
:1955 Author Organization [facility] Address [address] [place] [address] Care Team Providers Name Role Phone Elsewhere, Pcp Primary Care Provider Unavailable Reason for Visit Transplant (Routine) - Closed Specialty Diagnoses / Procedures Referred By Contact Refer red To Contact Transplant Surgery / Diagnoses Transplant Liver (HCC) Angélica Granger, [facility] Transplant P.A.-C. [address] [place] [phone] Referral ID Status Reason Start Date Expiration Date Visits Requ ested Visits Authorized [id number] Closed 12/27/2019 12/26/2020 1 1 Encounter Details Date Type Department Care Team Description 12/30/2019 Office Visit Angélica Ching, P.A.-C. [address] [place] [address] [phone] Pneumonitis Due To Inhalation Of Food An d Vomit (HCC) (Primary Dx); [facility] P.A.-Arley., M.S. 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 I have also given him a [...] Laboratory Medicine Angélica Granger P.A.-C. [address] [place] [phone] 05/23/2022 Clinical Admitting/Central Communication Scheduling 05/27/2022 Comprehensive Visit Orthopedic Surgery Markus Sams M.D., Ph.D. [address] [place] [phone] 05/29/2022 Office Visit Otorhinolaryngology Dex Matta APRN, C.N.P., M.S.N. [address] [place] [address] [phone] 05/29/2022 Office Visit Otorhinolaryngology Nadeem Maradiaga P.A.-C., M.S. [address] [place] [phone] 05/31/2022 Appointment Radiology Guilherme Matt MPAS, P.A.-C., M.S. [address] [place] [phone] 06/05/2022 Appointment Laboratory Medicine Angélica Granger P.A.-C. [address] [place] [phone] 06/19/2022 Appointment Laboratory Medicine Angélica Granger P.A.-C. [address] [place] [phone] 07/03/2022 Appointment Laboratory Medicine Angélica Granger P.A.-C. [address] [place] [phone] 07/17/2022 Appointment Laboratory Medicine Angélica Granger P.A.-C. [address] [place] [phone] 07/31/2022 Appointment Laboratory Medicine Angélica Granger P.A.-C. [address] [place] [phone] 08/14/2022 Appointment Laboratory Medicine Angélica Granger P.A.-C. [address] [place] [phone] 08/28/2022 Appointment Laboratory Medicine Angélica Granger P.A.-C. [address] [place] [phone] documented as of this encounter Visit Diagnoses Diagnosis Pneumonitis Due To Inhalation Of Food An d Vomit (HCC) - Primary Transplant Liver (HCC) Chronic Cough Immunosuppressed State documented in this encounter Additional Health Concerns Assessment Noted Time PHQ-9 Depression Total Score: 3 11/22/2019 7:34 AM CDT documented as of this encounter Care Teams Accounting Officer Relationship Specialty Start Date End Date Elsewhere, Pcp PCP - General Family Medicine 07/29/17 documented as of this encounter
--- OUTSIDE RECORDS SUMMARY | 2022-05-17 18:53 | XMS_ITS | Encounter Summary ---
:[address] [facility] Address [address] [place] [address] Care Team Providers Name Role Phone Elsewhere, Pcp Primary Care Provider Unavailable Encounter Details Date Type Department Care Team Description 12/27/2019 Orders Only Curt Rene [facility][note 3] Michele Granger for Transplantation and P.A.-C. 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 [address] [place] [phone] 05/23/2022 Clinical Admitting/Central Communication Scheduling 05/27/2022 Comprehensive Visit Orthopedic Surgery Markus Sams M.D., Ph.D. [address] [place] [phone] 05/29/2022 Office Visit Otorhinolaryngology Dex Matta APRN, C.N.P., M.S.N. [address] [place] [phone] 05/29/2022 Office Visit Otorhinolaryngology Nadeem Maradiaga, P.Murtaza.-Arley., M.S. [address] [place] [address] [phone] 05/31/2022 Appointment Radiology Guilherme Matt MPAS, Jennifer., M.S. [address] [place] [phone] 06/05/2022 Appointment Laboratory Medicine Angélica Granger P.A.-C. [address] [place] [address] [phone] 06/19/2022 Appointment Laboratory Medicine Angélica Granger P.A.-C. [address] [place] [phone] 07/03/2022 Appointment Laboratory Medicine Angélica Granger P.A.-C. [address] [place] [phone] 07/17/2022 Appointment Laboratory Medicine Angélica Granger P.A.-C. [address] [place] [phone] 07/31/2022 Appointment Laboratory Medicine Angélica Granger P.A.-C. [address] [place] [phone] 08/14/2022 Appointment Laboratory Medicine Angélica Granger P.A.-C. [address] [place] [phone] 08/28/2022 Appointment Laboratory Angélica Royal P.A.-C. [address] [place] [phone] documented as of this encounter Visit Diagnoses Not on filedocumented in this encounter Additional Health Concerns Assessment Noted Time PHQ-9 Depression Total Score: 3 11/22/2019 7:34 AM CDT documented as of this encounter Care Teams Mortgage Consultant Relationship Specialty Start Date End Date Elsewhere, Pcp PCP - General Family Medicine 07/29/17 documented as of this encounter
--- OUTSIDE RECORDS SUMMARY | 2022-05-17 18:53 | XMS_ITS | Encounter Summary ---
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 [address] [place] [phone] 05/23/2022 Clinical Admitting/Central Communication Scheduling 05/27/2022 Comprehensive Visit Orthopedic Surgery Markus Sams M.D., Ph.D. [address] [place] [address] [phone] 05/29/2022 Office Visit Otorhinolaryngology Dex Matta APRN, C.N.P., M.S.N. [address] [place] [address] [phone] 05/29/2022 Office Visit Otorhinolaryngology Nadeem Maradiaga, P.A.-C., M.S. [address] [place] [address] [phone] 05/31/2022 Appointment Radiology Guilherme Matt MPAS, P.A.-C., M.S. [address] [place] [phone] 06/05/2022 Appointment Laboratory Medicine Angélica Granger P.A.-C. [address] [place] [phone] 06/19/2022 Appointment Laboratory Medicine Angélica Granger P.A.-C. [address] [place] [address] [phone] 07/03/2022 Appointment Laboratory Medicine Angélica Granger P.A.-C. [address] [place] [address] [phone] 07/17/2022 Appointment Laboratory Medicine Angélica Granger P.A.-C. [address] [place] [phone] 07/31/2022 Appointment Laboratory Medicine Angélica Granger P.A.-C. [address] [place] [address] [phone] 08/14/2022 Appointment Laboratory Medicine Angélica Granger P.A.-C. [address] [place] [phone] 08/28/2022 Appointment Laboratory Medicine Angélica Granger P.A.-C. [address] [place] [address] [phone] documented as of this encounter Visit Diagnoses Not on filedocumented in this encounter Additional Health Concerns Infection Onset Date Last Indicated Resolved Time COVID19 Pending 01/26/2020 01/27/2020 01/28/2020 12:12 AM CDT Assessment Noted Time PHQ-9 Depression Total Score: 3 11/22/2019 7:34 AM CDT documented as of this encounter Care Teams Visitor Services Coordinator Relationship Specialty Start Date End Date Elsewhere, Pcp PCP - General Family Medicine 07/29/17 documented as of this encounter
--- OUTSIDE RECORDS SUMMARY | 2022-05-17 18:53 | XMS_ITS | Encounter Summary ---
:1955 Author Organization [facility] Address [address] [place] [address] Care Team Providers Name Role Phone Elsewhere, Pcp Primary Care Provider Unavailable Reason for Visit Reason Comments Appointment Encounter Details Date Type Department Care Team Description 01/26/2020 Clinical Communication Danita Fields Appointment [facility] M, M.S.N., R.N. 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 Singh, he is aware of the appointment date/times. We also spoke about Covid testing. He would like to go for his test on 01/26. Email sent to [facility] to place orders. Thank you Telephone Encounter - Meena Aguilar - 01/26/2020 2:42 PM CDT LM for patient to confirm schedule for 01/30. Patient will need covid testing on 01/28. He lives closest to [place] if he is interested in testing there. When patient decides where he would like covid testing done we can send email to test site to place orders. Thank you documented in this encounter Plan of Treatment Upcoming Encounters Date Type Specialty Care Team Description 05/22/2022 Appointment Laboratory Medicine Angélica Granger P.A.-C. [address] [place] [phone] 05/23/2022 Clinical Admitting/Central Communication Scheduling 05/27/2022 Comprehensive Visit Orthopedic Surgery Markus Sams M.D., Ph.D. [address] [place] [phone] 05/29/2022 Office Visit Otorhinolaryngology Dex Matta APRN, C.N.P., M.S.N. [address] [place] [phone] 05/29/2022 Office Visit Otorhinolaryngology Nadeem Mraadiaga P.A.-C., M.S. [address] [place] [phone] 05/31/2022 Appointment Radiology Guilherme Matt, RASTA, Edmundo, M.S. [address] [place] [phone] 06/05/2022 Appointment Laboratory Medicine Angélica Granger P.A.-C. [address] [place] [phone] 06/19/2022 Appointment Laboratory Medicine Angélica Granger P.A.-C. [address] [place] [phone] 07/03/2022 Appointment Laboratory Medicine Angélica Granger P.A.-C. [address] [place] [phone] 07/17/2022 Appointment Laboratory Medicine Angélica Granger P.A.-C. [address] [place] [phone] 07/31/2022 Appointment Laboratory Medicine Angélica Granger P.A.-C. [address] [place] [phone] 08/14/2022 Appointment Laboratory Medicine Angélica Granger P.A.-C. [address] [place] [phone] 08/28/2022 Appointment Laboratory Medicine Angélica Granger P.A.-C. [address] [place] [phone] documented as of this encounter Visit Diagnoses Not on filedocumented in this encounter Additional Health Concerns Assessment Noted Time PHQ-9 Depression Total Score: 3 11/22/2019 7:34 AM CDT documented as of this encounter Care Teams Account Manager Employee Benefits Relationship Specialty Start Date End Date Elsewhere, Pcp PCP - General Family Medicine 07/29/17 documented as of this encounter
--- OUTSIDE RECORDS SUMMARY | 2022-05-17 18:53 | XMS_ITS | Encounter Summary ---
:1955 Author Organization [facility] Address [address] [place] [address] Care Team Providers Name Role Phone Elsewhere, Pcp Primary Care Provider Unavailable Reason for Visit Outpatient (Routine) - Closed Specialty Diagnoses / Procedures Referred By Contact Refer red To Contact Pulmonary Medicine Diagnoses Transplant Liver (HCC) Angélica Granger, [facility] P.A.-C. [address] [place] [phone] Referral ID Status Reason Start Date Expiration Date Visits Requ ested Visits Authorized [id number] Closed 12/27/2019 12/26/2020 1 1 Encounter Details Date Type Department Care Team Description 12/29/2019 Comprehensive Visit Curt Diaz, Transplant [facility] for Leonid Stern, (HCC) Transplantation and MMaury Clinical Regeneration [address] [place] [address] in [facility] [phone] [place] [address] [place], [place] (Work) [phone] Social History Tobacco Use Types Packs/Day Years [...] Date Recorded 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 Trung Plaesncia tomorrow. In my opinion he is not [...] Laboratory Medicine Angélica Granger P.A.-C. [address] [place] [phone] 05/23/2022 Clinical Admitting/Central Communication Scheduling 05/27/2022 Comprehensive Visit Orthopedic Surgery Markus Sams M.D., Ph.D. [address] [place] [address] [phone] 05/29/2022 Office Visit Otorhinolaryngology Dex Matta APRN, C.N.P., M.S.N. [address] [place] [address] [phone] 05/29/2022 Office Visit Otorhinolaryngology Nadeem Maradiaga, P.Murtaza.-Arley., M.S. [address] [place] [phone] 05/31/2022 Appointment Radiology Guilherme Matt MPAS, Miri.Marie., M.S. [address] [place] [phone] 06/05/2022 Appointment Laboratory Medicine Angélica Granger P.A.-C. [address] [place] [address] [phone] 06/19/2022 Appointment Laboratory Medicine Angélica Granger P.A.-C. [address] [place] [phone] 07/03/2022 Appointment Laboratory Medicine Angélica Granger P.A.-C. [address] [place] [phone] 07/17/2022 Appointment Laboratory Medicine Angélica Granger P.A.-C. [address] [place] [phone] 07/31/2022 Appointment Laboratory Medicine Angélica Granger P.A.-C. [address] [place] [phone] 08/14/2022 Appointment Laboratory Angélica Royal P.A.-C. [address] [place] [phone] 08/28/2022 Appointment Laboratory Medicine Angélica Granger P.A.-C. [address] [place] [phone] documented as of this encounter Visit Diagnoses Diagnosis Transplant Liver (HCC) documented in this encounter Additional Health Concerns Assessment Noted Time PHQ-9 Depression Total Score: 3 11/22/2019 7:34 AM CDT documented as of this encounter Care Teams Wafer Polisher Relationship Specialty Start Date End Date Elsewhere, Pcp PCP - General Family Medicine 07/29/17 documented as of this encounter
--- OUTSIDE RECORDS SUMMARY | 2022-05-17 18:53 | XMS_ITS | Encounter Summary ---
:[address] [facility] Address [address] [place] [address] Care Team Providers Name Role Phone Elsewhere, Pcp Primary Care Provider Unavailable Reason for Referral MRI/CAT/PET Scan (Routine) - Closed Specialty Diagnoses / Procedures Referred By Contact Refer red To Contact Radiology Diagnoses Transplant Liver (HCC) Angélica Granger P.A.-[facility] Procedures CT Chest without IV Contrast [address] [place] [phone] Referral ID Status Reason Start Date Expiration Date Visits Requ ested Visits Authorized [id number] Closed 12/27/2019 12/26/2020 1 1 Outpatient (Routine) - Closed Specialty Diagnoses / Procedures Referred By Contact Refer red To Contact Pulmonary Medicine Diagnoses Transplant Liver (HCC) Angélica Granger [facility] P.A.-CDemetrius [address] [place] [phone] Referral ID Status Reason Start Date Expiration Date Visits Requ ested Visits Authorized [id number] Closed 12/27/2019 12/26/2020 1 1 Transplant (Routine) - Closed Specialty Diagnoses / Procedures Referred By Contact Refer red To Contact Transplant Surgery / Diagnoses Transplant Liver (HCC) Angélica Granger [facility] Transplant P.A.-CDemetrius [address] [place] [address] Referral ID Status Reason Start Date Expiration Date Visits Requ ested Visits Authorized [id number] Closed 12/27/2019 12/26/2020 1 1 Encounter Details Date Type Department Care Team Description 12/27/2019 Orders Only Blanca Luis [facility] for M, R.N. 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 [address] [place] [phone] 05/23/2022 Clinical Admitting/Central Communication Scheduling 05/27/2022 Comprehensive Visit Orthopedic Surgery Markus Sams M.D., Ph.D. [address] [place] [address] [phone] 05/29/2022 Office Visit Otorhinolaryngology Dex Matta APRN, C.N.P., M.S.N. [address] [place] [address] [phone] 05/29/2022 Office Visit Otorhinolaryngology Nadeem Maradiaga, P.A.-C., M.S. [address] [place] [address] [phone] 05/31/2022 Appointment Radiology Guilherme Matt, RASTA, P.Murtaza.Marie., M.S. [address] [place] [address] [phone] 06/05/2022 Appointment Laboratory Medicine Angélica Granger P.A.-C. [address] [place] [phone] 06/19/2022 Appointment Laboratory Medicine Angélica Granger P.A.-C. [address] [place] [phone] 07/03/2022 Appointment Laboratory Medicine Angélica Granger P.A.-C. [address] [place] [phone] 07/17/2022 Appointment Laboratory Medicine Agnélica Granger P.A.-C. [address] [place] [phone] 07/31/2022 Appointment Laboratory Medicine Angélica Granger P.A.-C. [address] [place] [phone] 08/14/2022 Appointment Laboratory Medicine Angélica Granger P.A.-C. [address] [place] [phone] 08/28/2022 Appointment Laboratory Medicine Angélica Granger P.A.-C. [address] [place] [phone] Scheduled Referrals Name Type Priority Associated Order [...] Signature Tacrolimus, B 2.6 (L) 5.0-15.0 12/29/2019 SDSC (Trough) 2:14 PM CDT ng/mL Comment: ----ADDITIONAL [...] Number [facility] [address] [place], [place] [address] [facility] [place] [address] Laboratory Medicine and Pathology [address] [place] (ABNORMAL) CBC no call back, reflex T/S HGB <8 (12/29/2019 7:22 AM CDT) [facility] gist Method Time Signature Hemoglobin 10.0 [...] Laterality Blood (Blood, 12/29/2019 7:22 AM 12/29/19 8:06 Venous) CDT AM CDT Angélica Granger P.A.-C. LAB BLOOD NON ADD-ON Performing Organization Address City/State/ZIP Code Phon e Number [facility] - [address] [place] [phone] [facility] [place] [address] Laboratories-[facility] 200 [facility] (ABNORMAL) Comprehensive Metabolic Panel (12/29/2019 7:22 AM [...] 12/29/2019 DTL Black/ mL/min/BSA 8:30 AM CDT Slovak Comment: ----ADDITIONAL INFORMATION---- Estimated GFR calculated using [...] P.A.-C. LAB BLOOD ADD-ON Performing Organization Address City/State/[facility] Phon e Number [facility] - [address] Bilirubin, Direct (12/29/2019 7:22 AM CDT) P athologist Signature Bilirubin, <0.2 0.0 - 0.3 12/29/2019 DTL Direct, S mg/dL 8:30 AM CDT Specimen Anatomical Collection Method Collection Time Receive d Time (Source) Location / / Volume Laterality Blood (Blood, 12/29/2019 7:22 AM 12/29/19 8:07 Venous) CDT AM CDT Angélica Granger P.A.-C. LAB BLOOD ADD-ON Performing Organization Address City/State/[facility] Phon e Number [facility] - [address] [place], [place] [address] [place] [phone] [place] [address] documented in this encounter Visit Diagnoses Diagnosis Transplant Liver (HCC) - Primary Transplant Liver (HCC) documented in this encounter Additional Health Concerns Assessment Noted Time PHQ-9 Depression Total Score: 3 11/22/2019 7:34 AM CDT documented as of this encounter Care Teams Associate Counsel Relationship Specialty Start Date End Date Elsewhere, Pcp PCP - General Family Medicine 07/29/17 documented as of this encounter
--- OUTSIDE RECORDS SUMMARY | 2022-05-17 18:53 | XMS_ITS | Encounter Summary ---
:1955 Author Organization [facility] Address [address] [place] [address] Care Team Providers Name Role Phone Elsewhere, Pcp Primary Care Provider Unavailable Reason for Referral MRI/CAT/PET Scan (Routine) - Closed Specialty Diagnoses / Procedures Referred By Contact Refer red To Contact Radiology Diagnoses Transplant Liver (HCC) Angélica Granger P.A.-C. [facility] Procedures CT Chest without IV Contrast [address] [place] [phone] Referral ID Status Reason Start Date Expiration Date Visits Requ ested Visits Authorized [id number] Closed 12/27/2019 12/26/2020 1 1 Reason for Visit MRI/CAT/PET Scan (Routine) - Closed Specialty Diagnoses / Procedures Referred By Contact Refer red To Contact Radiology Diagnoses Transplant Liver (HCC) Angélica Granger P.A.-C. [facility] Procedures CT Chest without IV Contrast [address] [place] [phone] Referral ID Status Reason Start Date Expiration Date Visits Requ ested Visits Authorized [id number] Closed 12/27/2019 12/26/2020 1 1 Encounter Details Date Type Department Care Team Description 12/29/2019 Hospital Encounter Department of Angélica Granger Liver Radiology, Kd Stern P.A.-C. 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 Pain. No more than 2000 mg per day. amoxicillin (AMOXIL) 500 Take 4 capsules by 0 09/ 09/2017 mg capsule mouth as directed. Prior [...] capsule ipratropium (ATROVENT) Administer 2 sprays 0 /07/201611/13/2020 [...] mg tabletIndications: total) by mouth Transplant Liver ([facility]), daily. Medication Therapy Longterm Not Anticoagulant tacrolimus (PROGRAF) 0.5 Take 2 capsules (1 360 capsule 3 07/20/2020 mg capsuleIndications: mg total) by mouth Transplant Liver ([facility]), 2 (two) times a Medication [...] Laboratory Medicine Angélica Granger P.A.-C. [address] [place] [phone] 05/23/2022 Clinical Admitting/Central Communication Scheduling 05/27/2022 Comprehensive Visit Orthopedic Surgery Markus Sams M.D., Ph.D. [address] [place] [address] [phone] 05/29/2022 Office Visit Otorhinolaryngology Dex Matta APRN CDemetriusNFabrice., M.S.N. [address] [place] [phone] 05/29/2022 Office Visit Otorhinolaryngology Nadeem Maradiaga P.A.-C., M.S. [address] [place] [phone] 05/31/2022 Appointment Radiology Guilherme Matt MPAS, P.A.-C., M.S. [address] [place] [phone] 06/05/2022 Appointment Laboratory Medicine Angélica Granger P.A.-C. [address] [place] [phone] 06/19/2022 Appointment Laboratory Medicine Angélica Granger P.A.-C. [address] [place] [phone] 07/03/2022 Appointment Laboratory Medicine Angélica Granger P.A.-C. [address] [place] [phone] 07/17/2022 Appointment Laboratory Medicine Angélica Granger P.A.-C. [address] [place] [phone] 07/31/2022 Appointment Laboratory Medicine Angélica Granger P.A.-C. [address] [place] [phone] 08/14/2022 Appointment Laboratory Medicine Angélica Granger P.A.-C. [address] [place] [phone] 08/28/2022 Appointment Laboratory Medicine Darlinganeesh Angélica Stern P.A.-C. [address] [place] [phone] documented as of this encounter Procedures Procedure [...] IVC compatible with prior liver transplant. Cholecystec shaayn. Partially imaged upper abdominal varices. Mild splenomegaly [...] documented as of this encounter Care Teams School Adjustment Counselor Relationship Specialty Start Date End Date Elsewhere, Pcp PCP - General Family Medicine 07/29/17 documented as of this encounter
--- OUTSIDE RECORDS SUMMARY | 2022-05-17 18:53 | XMS_ITS | Encounter Summary ---
:1955 Author Organization [facility] Address [address] [place] [address] Care Team Providers Name Role Phone Elsewhere, Pcp Primary Care Provider Unavailable Reason for Visit Reason Onset Date Comments Outpatient COVID-19 Testing 01/26/2020 Encounter Details Date Type Department Care Team Description 01/26/2020 External Outreach Department of Mushtaq Salas Infect [facility] Internal Medicine in J, D.O. 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 - 01/26/2020 5:22 PM CDT Encounter created for the drive-through COVID-19 testing. documented in this encounter Plan of Treatment Upcoming Encounters Date Type Specialty Care Team Description 05/22/2022 Appointment Laboratory Medicine Angélica Granger, PDemetriusA.-C. [address] [place] [phone] 05/23/2022 Clinical Admitting/Central Communication Scheduling 05/27/2022 Comprehensive Visit Orthopedic Surgery Markus Sams M.D., Ph.D. [address] [place] [phone] 05/29/2022 Office Visit Otorhinolaryngology Dex Matta APRN, C.N.P., M.S.N. [address] [place] [phone] 05/29/2022 Office Visit Otorhinolaryngology Nadeem Maradiaga P.A.-C., M.S. [address] [place] [phone] 05/31/2022 Appointment Radiology Guilherme Matt MPAS, P.A.-C., M.S. [address] [place] [phone] 06/05/2022 Appointment Laboratory Medicine Angélica Granger P.A.-C. [address] [place] [phone] 06/19/2022 Appointment Laboratory Medicine Angélica Granger P.A.-C. [address] [place] [phone] 07/03/2022 Appointment Laboratory Medicine Angélica Granger P.A.-C. [address] [place] [phone] 07/17/2022 Appointment Laboratory Medicine Angélica Granger P.A.-C. [address] [place] [phone] 07/31/2022 Appointment Laboratory Medicine Angélica Granger P.A.-C. [address] [place] [phone] 08/14/2022 Appointment Laboratory Medicine Angélica Granger P.A.-C. [address] [place] [phone] 08/28/2022 Appointment Laboratory Medicine Angélica Granger P.A.-C. [address] [place] [phone] documented as of this encounter Procedures Procedure Name Priority Date/Time Associated Diagnosis Comme nts SARS CORONAVIRUS-2 Routine 01/27/2020 11:57 AM Infection Upper Results for this RNA, V CDT Respiratory procedure are i n the results section. documented in this encounter Results SARS Coronavirus-2 RNA, V Symptomatic (01/27/2020 11:57 AM CDT) [facility] Method Time Signature SARS-CoV-2 Swab, 01/28/2020 [...] is performed using the Aptima SARS-CoV-2 assay ([employer] which has received Emergency Use Authori zation (EUA) by the U.S. Food and Drug Administration. Fact sheets for this Emergency Use Autho rization (EUA) assay can be found at the following links: For Healthcare Providers: https://www.fd a.gov/media/295302/download For Patients: https://www.fda.gov/media/ 386100/download Specimen Anatomical Collection Method Collection Time Receive d Time (Source) Location / / Volume Laterality Varies 01/27/2020 11:57 01/27/2020 2:23 (Nasopharynx) AM CDT PM CDT Mushtaq Salas D.O. LAB MICROBIOLOGY - GENERAL O RDERABLES Performing Organization Address City/State/ZIP Code Phon e Number [facility]- [address] [place] [address] [place] [address] System [address] documented in this encounter Visit Diagnoses Diagnosis Infection Upper Respiratory - Primary documented in this encounter Additional Health Concerns Infection Onset Date Last Indicated Resolved Time COVID19 Pending 01/26/2020 01/27/2020 01/28/2020 12:12 AM CDT Assessment Noted Time PHQ-9 Depression Total Score: 3 11/22/2019 7:34 AM CDT documented as of this encounter Care Teams Sociology Adjunct Instructor Relationship Specialty Start Date End Date Elsewhere, Pcp PCP - General Family Medicine 07/29/17 documented as of this encounter
--- OUTSIDE RECORDS SUMMARY | 2022-05-17 18:54 | XMS_ITS | Encounter Summary ---
:1955 Author Organization [facility] Address [address] [place] [address] Care Team Providers Name Role Phone Elsewhere, Pcp Primary Care Provider Unavailable Reason for Visit Outpatient (Routine) - Closed Specialty Diagnoses / Procedures Referred By Contact Refer red To Contact Dermatology Diagnoses Squamous Cell Carcinoma In Situ Tres Llamas M.D. [address] [address] Referral ID Status Reason Start Date Expiration Date Visits Requ ested Visits Authorized [id number] Closed 11/26/2019 11/25/2020 1 1 Encounter Details Date Type Department Care Team Description 11/29/2019 Office Visit Department of Kandace Chatman Squamous Cell Dermatology in A, REEL HOOKER, C.N.P., Carcinoma In Situ [place], [place] D.N.P. 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 Nithin Ring ([phone]) Supervising retail sales consultant, Dr. Nithin Ring, was immediately [...] Laboratory Medicine Angélica Granger P.A.-C. [address] [place] [phone] 05/23/2022 Clinical Admitting/Central Communication Scheduling 05/27/2022 Comprehensive Visit Orthopedic Surgery Markus Sams M.D., Ph.D. [address] [place] [phone] 05/29/2022 Office Visit Otorhinolaryngology Dex Matta APRN, C.N.P., M.S.N. [address] [place] [phone] 05/29/2022 Office Visit Otorhinolaryngology Nadeem Maradiaga P.A.-C., M.S. [address] [place] [phone] 05/31/2022 Appointment Radiology Guilherme Matt MPAS, P.A.-C., M.S. [address] [place] [phone] 06/05/2022 Appointment Laboratory Medicine Angélica Granger P.A.-C. [address] [place] [phone] 06/19/2022 Appointment Laboratory Medicine Angélica Granger P.A.-C. [address] [place] [address] [phone] 07/03/2022 Appointment Laboratory Medicine Angélica Granger P.A.-C. [address] [place] [address] [phone] 07/17/2022 Appointment Laboratory Medicine Angélica Granger P.A.-C. [address] [place] [phone] 07/31/2022 Appointment Laboratory Medicine Angélica Granger P.A.-C. [address] [place] [phone] 08/14/2022 Appointment Laboratory Medicine Angélica Granger P.A.-C. [address] [place] [phone] 08/28/2022 Appointment Laboratory Medicine Angélica Granger P.A.-C. [address] [place] [phone] documented as of this encounter Visit Diagnoses Diagnosis Squamous Cell Carcinoma In Situ - Primar y documented in this encounter Additional Health Concerns Assessment Noted Time PHQ-9 Depression Total Score: 3 11/22/2019 7:34 AM CDT documented as of this encounter Care Teams Relay Shop Tester Relationship Specialty Start Date End Date Elsewhere, Pcp PCP - General Family Medicine 07/29/17 documented as of this encounter
--- OUTSIDE RECORDS SUMMARY | 2022-05-17 18:54 | XMS_ITS | Encounter Summary ---
:1955 Author Organization [facility] Address [address] [place] [address] Care Team Providers Name Role Phone Elsewhere, Pcp Primary Care Provider Unavailable Reason for Referral Outpatient (Routine) - Closed Specialty Diagnoses / Procedures Referred By Contact Refer red To Contact Diagnoses Bronchiectasis With Acute Exacerbation (HCC) Leonid Simon M.D. [facility] Procedures Bronchoscopy (Adult): [address] [place] [phone] Referral ID Status Reason Start Date Expiration Date Visits Requ ested Visits Authorized [id number] Closed 12/07/2019 12/06/2020 1 1 Encounter Details Date Type Department Care Team Description 12/07/2019 Orders Only Leonid Blount nchiectasis With Milka Stern M.D. 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 [address] [place] [phone] 05/29/2022 Office Visit Otorhinolaryngology Dex Matta APRN, C.N.P., M.S.N. [address] [place] [phone] 05/29/2022 Office Visit Otorhinolaryngology Nadeem Maradiaga P.A.-C., M.S. [address] [place] [phone] 05/31/2022 Appointment Radiology Guilherme Matt MPAS, P.A.-C., M.S. [address] [place] [phone] 06/05/2022 Appointment Laboratory Medicine Angélica Granger P.A.-C. [address] [place] [phone] 06/19/2022 Appointment Laboratory Medicine Angélica Granger P.A.-C. [address] [place] [phone] 07/03/2022 Appointment Laboratory Medicine Angélica Granger P.A.-C. [address] [place] [phone] 07/17/2022 Appointment Laboratory Medicine Angélica Granger P.A.-C. [address] [place] [phone] 07/31/2022 Appointment Laboratory Medicine Angélica Granger P.A.-C. [address] [place] [phone] 08/14/2022 Appointment Laboratory Medicine Angélica Granger P.A.-C. [address] [place] [phone] 08/28/2022 Appointment Laboratory Medicine Angéilca Granger P.A.-C. [address] [place] [phone] documented as of this encounter Results Bronchoscopy [...] as of this encounter Care Teams Single Resource Boss Relationship Specialty Start Date End Date Elsewhere, Pcp PCP - General Family Medicine 07/29/17 documented as of this encounter
--- OUTSIDE RECORDS SUMMARY | 2022-05-17 18:54 | XMS_ITS | Encounter Summary ---
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 [address] [place] [phone] 05/23/2022 Clinical Admitting/Central Communication Scheduling 05/27/2022 Comprehensive Visit Orthopedic Surgery Markus Sams M.D., Ph.D. [address] [place] [phone] 05/29/2022 Office Visit Otorhinolaryngology Dex Matta APRN, C.N.P., M.S.N. [address] [place] [phone] 05/29/2022 Office Visit Otorhinolaryngology Nadeem Maradiaga P.A.-C., M.S. [address] [place] [phone] 05/31/2022 Appointment Radiology Guilherme Matt MPAS, Edmundo, M.S. [address] [place] [phone] 06/05/2022 Appointment Laboratory Medicine Angélica Granger P.A.-C. [address] [place] [phone] 06/19/2022 Appointment Laboratory Medicine Angélica Granger P.A.-C. [address] [place] [phone] 07/03/2022 Appointment Laboratory Medicine Angélica Granger P.A.-C. [address] [place] [phone] 07/17/2022 Appointment Laboratory Medicine Angélica Granger P.A.-C. [address] [place] [phone] 07/31/2022 Appointment Laboratory Medicine Angélica Granger P.A.-C. [address] [place] [phone] 08/14/2022 Appointment Laboratory Medicine Angélica Granger P.A.-C. [address] [place] [phone] 08/28/2022 Appointment Laboratory Medicine Angélica Granger P.A.-C. [address] [place] [phone] documented as of this encounter Visit Diagnoses Not on filedocumented in this encounter Additional Health Concerns Assessment Noted Time PHQ-9 Depression Total Score: 3 11/22/2019 7:34 AM CDT documented as of this encounter Care Teams Director Social Service Relationship Specialty Start Date End Date Elsewhere, Pcp PCP - General Family Medicine 07/29/17 documented as of this encounter
--- OUTSIDE RECORDS SUMMARY | 2022-05-17 18:54 | XMS_ITS | Encounter Summary ---
:1955 Author Organization [facility] Address [address] [place] [address] Care Team Providers Name Role Phone Elsewhere, Pcp Primary Care Provider Unavailable Reason for Referral Outpatient (Routine) - Closed Specialty Diagnoses / Procedures Referred By Contact Refer red To Contact Diagnoses Bronchiectasis With Acute Exacerbation (HCC) Leonid Simon M.D. [facility] Procedures Bronchoscopy (Adult): [address] [place] [phone] Referral ID Status Reason Start Date Expiration Date Visits Requ ested Visits Authorized [id number] Closed 12/07/2019 12/06/2020 1 1 Reason for Visit Outpatient (Routine) - Closed Specialty Diagnoses / Procedures Referred By Contact Refer red To Contact Diagnoses Bronchiectasis With Acute Exacerbation (HCC) Leonid Simon M.D. [facility] Procedures Bronchoscopy (Adult): [address] [place] [phone] Referral ID Status Reason Start Date Expiration Date Visits Requ ested Visits Authorized [id number] Closed 12/07/2019 12/06/2020 1 1 Encounter Details Date Type Department Care Team Description 12/15/2019 Hospital Encounter Division of [facility], Cherrie Castro With Pulmonary Medicine Sada Acute Exacerbation in [place], [address] [facility] ([facility] [place], [place] 200 [facility] [address] [place], [place] [phone] (Work) [phone] Social History Tobacco Use Types Packs/Day Years [...] Date Recorded 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 Medication Therapy Longterm Not Anticoagulant tacrolimus [...] as of this encounter OR Notes Op Matteo - Miguel Sanz M.D. - 12/15/2019 10:11 [...] performed a BAL and sent this for [facility] protocol. Inspection of the tracheobronchial tree [...] AND DIFFERENTIAL, BROCHOALVEOLAR LAVAGE, ADENOVIRUS PCR, CYTOLOGY NON-DRESSING MACHINE OPERATOR Miguel Sanz M.D. 12/15/2019 0956 Drains None Estimated Blood Loss None Implants None Miguel Sanz M.D. documented in this encounter Plan of Treatment Upcoming Encounters Date Type Specialty Care Team Description 05/22/2022 Appointment Laboratory Medicine Angélica Granger P.A.-C. [address] [place] [phone] 05/23/2022 Clinical Admitting/Central Communication Scheduling 05/27/2022 Comprehensive Visit Orthopedic Surgery Markus Sams M.D., Ph.D. [address] [place] [phone] 05/29/2022 Office Visit Otorhinolaryngology Dex Matta APRN, C.N.P., M.S.N. [address] [place] [phone] 05/29/2022 Office Visit Otorhinolaryngology Nadeem Maradiaga P.A.-C., M.S. [address] [place] [phone] 05/31/2022 Appointment Radiology Guilherme Matt MPAS, P.A.-C., M.S. [address] [place] [phone] 06/05/2022 Appointment Laboratory Medicine Angélica Granger P.A.-C. [address] [place] [phone] 06/19/2022 Appointment Laboratory Medicine Angélica Granger P.A.-C. [address] [place] [phone] 07/03/2022 Appointment Laboratory Medicine Angélica Granger P.A.-C. [address] [place] [phone] 07/17/2022 Appointment Laboratory Medicine Angélica Granger P.A.-C. [address] [place] [phone] 07/31/2022 Appointment Laboratory Medicine Angélica Granger P.A.-C. [address] [place] [phone] 08/14/2022 Appointment Laboratory Medicine Angélica Granger P.A.-C. [address] [place] [phone] 08/28/2022 Appointment Laboratory Medicine EmilieAngélica wilcox Edmunod Stern [address] [place] [address] Scheduled Orders Name Type Priority Associated Diagnoses [...] are i n the results section. CYTOLOGY NON-DRESSING MACHINE OPERATOR Routine 12/15/2019 9:56 Bronchiectasis With R esults [...] P athologist Signature Test Name CASPOFUNGIN 12/15/2019 [facility] 10:58 AM CDT Result See Below 12/29/2019 [facility] 3:21 PM CDT Comment: Antifungal Susceptibility Testing Source: Bronchoalveolar lavage-[facility] Species ID Provided: Penicillium sp. Result Name ?Result ?Flag ? Units ? Caspofungin (ALESSANDRA) ? 0.5 ? mcg/mL ? Interpretation ? No Established Breakpoints Test Performed By: [employer] [facility] [address] [facility] Department of Pathology Fungus Lab [place], [place] ??[phone] Specimen Anatomical Collection Method Collection Time Receive d Time (Source) Location / / Volume Laterality Varies 12/15/2019 9:56 AM 0 CDT 10:58 AM CDT Leonid Simon M.D. LAB MISC ORDERABLES Performing Organization Address City/State/ZIP Code Phon e Number MISC REFERRAL LAB MISC Misc [facility] Manning Ant Test (12/15/2019 9:56 AM CDT) [...] Organization Address City/State/ZIP Code Phon e Number [facility] [address] [place], [place] [phone] [place] Department Of Pathology [place] [address] Dept of Path-Fungus Lab Posaconazole - [...] - GENERAL Alethea GRAHAM Performing Organization Address City/[facility] Code Phon e Number [address] [phone] [place] Department Of Pathology [place] [address] Dept of Path-Fungus Lab Voriconazole - [...] - GENERAL Alethea GRAHAM Performing Organization Address City/State/ZIP Code Phon e Number [facility] [address] [place], [place] [phone] [place] Department Of Pathology [place] [address] Ctr [place] [address] [facility] Dept of Path-Fungus Lab Cytology Non-DRESSING MACHINE OPERATOR (12/15/2019 9:56 AM CDT) Component Value Ref Test Analysis Performed At Patholo gist Range Method Time Signature 12/16/2019 DTL 2:41 PM CDT Participated in Priscilla 12/16/2019 DTL the Interpretation Dayanna, 2:41 PM CDT Beatrice-Path ology Resident Report Leonid Huynh M.D. [phone] 12/16/2019 DTL electronically I verify that I [...] Address City/State/ZIP Code Phon e Number [facility] - [address] [place], [place] [address] [facility] [place] [address] Laboratories-[facility] [address] Adenovirus PCR (12/15/2019 9:56 AM CDT) Component Value Ref Range Test Analysis Performed Pathologis t Method Time At Signature Specimen [facility], 12/16/2019 DTL Source Bronchoalveolar 1:29 PM CDT [facility] Adenovirus Negative Negative 12/16/2019 DTL PCR 1:29 PM CDT Comment: ----ADDITIONAL INFORMATION---- This test was developed and its performa nce characteristics determined by [facility] in a manner consistent with CLIA [...] Address City/State/ZIP Code Phon e Number [facility] - 200 [place], [place] [address] [facility] [place] [address] [facility] [address] [facility] Cell Count and Differential, BAL (12/15/2019 9:56 AM CDT) athologist Signature Fluid Type BAL DEFAULT 12/15/2019 [...] Its performance characteri stics were determined by [facility] in a manner co nsistent with [...] Cells 1 % 12/15/2019 1:06 PM CDT [facility] Comment: ----REFERENCE VALUE---- The reference range and other method per formance specifications have not been established for this body fluid. The test result must be integrate d into the clinical context for interpretation. Comment Others are lining cells. 12/15/2019 1:06 PM CDT [facility] Reviewed by: Tereza 12/15/2019 1:06 PM CDT [facility] Specimen (Source) Anatomical Collection Method Collection Time Re ceived Time Location / / Volume Laterality [facility] 12/15/2019 9:56 AM (Bronchoalveolar CDT [facility]) Leonid Simon M.D. LAB BODY FLUIDS AND STOOLS O GLADYS Performing Organization Address City/[facility] Code Phon e Number [facility] - [address] [place], [place] [address] [place] [address] [address] Pneumocystis PCR (12/15/2019 9:56 AM CDT) Component Value Ref Range Test Analysis Performed Pathologis t Method Time At Signature Specimen [facility], 12/16/2019 DTL Source Bronchoalveolar 7:41 AM [facility] CDT Pneumocystis Negative Not 12/16/2019 DTL PCR Applicable 7:41 AM CDT Comment: ----ADDITIONAL INFORMATION---- This test was developed and its performa nce characteristics determined by [facility] in a manner consistent with CLIA requirements. This test has not been cleared or approved by the U.S. Mer d and Drug Administration. Specimen (Source) Anatomical Collection Method Collection Time Re ceived Time Location / / Volume Laterality [facility] 12/15/2019 9:56 AM (Bronchoalveolar CDT [facility]) Leonid Simon M.D. LAB MICROBIOLOGY - GENERAL O [place]ADYS Performing Organization Address City/[facility] Code Phon e Number [facility] - [address] [place], [place] [address] [facility] [place] [address] [address] Influenza A/B And RSV, PCR, Misc [...] Its performance characteristics were determi kaye by [facility] in a manner consistent with CLIA requirements. This test has not been cleared or approved by the U.S. Food and Drug Administration . Specimen (Source) Anatomical Collection Method Collection Time Re ceived Time Location / / Volume Laterality [facility] 12/15/2019 9:56 AM (Bronchoalveolar CDT [facility]) Leonid Simon M.D. LAB MICROBIOLOGY - GENERAL O GLADYS Performing Organization Address City/[facility] Phon e Number [facility] - 200 [place], [place] [address] [place] [address] Laboratories-[address] Bacterial Culture, Aerobic + Susc, Resp [...] Address City/State/ZIP Code Phon e Number [facility] - [address] [place], [place] [address] [place] [address] [address] Nocardia Stain (12/15/2019 9:56 AM CDT) Analysis Performed At Patho logist Time Signature Nocardia Stain Negative. 12/15/2019 DTL 12:38 PM CDT Specimen (Source) Anatomical Collection Method Collection Time Re ceived Time Location / / Volume Laterality [facility] 12/15/2019 9:56 AM (Bronchoalveolar CDT [facility]) Leonid Simon M.D. LAB MICROBIOLOGY - GENERAL O RDERABLES Performing Organization Address City/[facility]/ZIP Code Phon e Number [facility] - 200 [place], [place] [address] [facility] [place] [address] [facility] 200 [facility] Legionella PCR (12/15/2019 9:56 AM CDT) Component Value Ref Range Test Analysis Performed Pathologis t Method Time At Signature Specimen [facility], 12/16/2019 DTL Source Bronchoalveolar 12:44 AM [facility] CDT Legionella Negative Not 12/16/2019 DTL PCR, Result Applicable 12:44 AM CDT Comment: ----ADDITIONAL INFORMATION---- This test was developed and its performa nce characteristics determined by [facility] in a manner consistent with CLIA requirements. This test has not been cleared or approved by the U.S. Mer d and Drug Administration. Specimen (Source) Anatomical Collection Method Collection Time Re ceived Time Location / / Volume Laterality [facility] 12/15/2019 9:56 AM (Bronchoalveolar CDT [facility]) Leonid Simon M.D. LAB MICROBIOLOGY - GENERAL O GLADYS Performing Organization Address City/[facility]/ZIP Code Phon e Number [facility] - 200 [place], [place] [address] [place] [address] [facility] 200 [facility] Aspergillus Antigen, Bronchoalveolar Lavage (12/15/2019 9:56 AM CDT) P athologist Signature Aspergillus Ag, <0.500 <0.5 index 12/15/2019 [facility] BAL 7:58 PM CDT Comment: ----ADDITIONAL INFORMATION---- This is a qualitative test and the resul onel index value is not indicative of disease severity. ??Serial testing is re commended for patients at high risk for invasive aspergillosis. This assay was performed using the FDA-c leared [employer] Platelia Aspergillus Galactomannan EIA. Specimen (Source) Anatomical Collection Method Collection Time Re ceived Time Location / / Volume Laterality [facility] 12/15/2019 9:56 AM (Bronchoalveolar CDT [facility]) Leonid Simon M.D. LAB MICROBIOLOGY - GENERAL O GLADYS Performing Organization Address City/[facility]/ZIP Code Phon e Number [facility] [address] [place], [place] [address] [facility] [place] [address] Laboratory Medicine and Pathology [address] [...] Address City/State/ZIP Code Phon e Number [facility] - [address] [place], [place] [address] [place] [address] [facility] [address] Fungal Smear (12/15/2019 9:56 AM CDT) P athologist Signature Fungal Smear Negative. 12/15/2019 DTL 12:27 PM CDT Specimen (Source) Anatomical Collection Method Collection Time Re ceived Time Location / / Volume Laterality [facility] 12/15/2019 9:56 AM (Bronchoalveolar CDT [facility]) Leonid Simon M.D. LAB MICROBIOLOGY - GENERAL O GLADYS Performing Organization Address City/State/ZIP Code Phon e Number [facility] - [address] [place], [place] [address] [facility] [address] [facility] [address] Legionella Culture (12/15/2019 9:56 [...] Address City/State/ZIP Code Phon e Number [facility] - [address] [place], [place] [address] [facility] [address] [facility] [address] Acid Fast Smear For Mycobacterium (12/15/2019 9:56 AM CDT) [facility] Method Time Signature Acid Fast Smear Negative. 12/15/2019 DTL For Mycobacterium 12:27 PM CDT Specimen (Source) Anatomical Collection Method Collection Time Re ceived Time Location / / Volume Laterality [facility] 12/15/2019 9:56 AM (Bronchoalveolar CDT [facility]) Leonid Simon M.D. LAB MICROBIOLOGY - GENERAL O GLADYS Performing Organization Address City/State/ZIP Code Phon e Number [facility] - [address] [place], [place] [address] [facility] [place] [address] [facility] [address] [facility] Gram Stain (12/15/2019 9:56 AM CDT) [facility] Method Time Signature Gram Stain No organisms seen. 12/15/2019 DTL White blood cells present. 11:58 AM CDT Specimen (Source) Anatomical Collection Method Collection Time Re ceived Time Location / / Volume Laterality [facility] 12/15/2019 9:56 AM (Bronchoalveolar CDT [facility]) Leonid Simon M.D. LAB MICROBIOLOGY - GENERAL Alethea GRAHAM Performing Organization Address City/State/ZIP Code Phon e Number [facility] - [address] [place], [place] [address] [place] [address] [facility] [address] (ABNORMAL) Fungal Culture, Routine (12/15/2019 9:56 AM CDT) [facility] Method Time Signature Fungal Mixed Fungal 01/17/2020 DTL Culture, Alfreda (A) 3:26 PM CDT Routine Fungal PENICILLIUM sp 01/17/2020 DTL Culture, Many 3:26 PM CDT Routine (A) Comment: Semi-Urgent Result. Susceptibility testing is not routinely recommended for this organism. Clinical correlation requ ired. Isolate forwarded to [facility] for susceptibility testing. In Epic, see res ults in Chart Review select Labs tab, click on Doc ument Viewer to open OnBase Patient Window, select La bs tab and click to open Lab - Send Out Lab Results. Fungal Culture, Routine DEMATIACEOUS FUNGUS 2019 3:26 PM CDT DTL Few (A) Comment: Not further identified. Semi-Urgent This is a semi-urgent result [facility] - ([place] Specimen (Source) Anatomical Collection Method Collection Time Re ceived Time Location / / Volume Laterality [facility] 12/15/2019 9:56 AM (Bronchoalveolar CDT [facility]) Leonid Simon M.D. LAB MICROBIOLOGY - GENERAL O GLADYS Performing Organization Address City/State/ZIP Code Phon e Number [facility] - [address] [place], [place] [address] [facility] [place] [address] [facility] [address] documented in [...] documented as of this encounter Care Teams Tank Crewmember Relationship Specialty Start Date End Date Elsewhere, Pcp PCP - General Family Medicine 07/29/17 documented as of this encounter
--- OUTSIDE RECORDS SUMMARY | 2022-05-17 18:54 | XMS_ITS | Encounter Summary ---
:1955 Author Organization [facility] Address [address] [place] [address] Care Team Providers Name Role Phone Elsewhere, Pcp Primary Care Provider Unavailable Encounter Details Date Type Department Care Team Description 12/01/2019 Orders Only [facility] 2001 Michele Granger for Transplantation and P.A.-C. 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 [address] [place] [phone] 05/23/2022 Clinical Admitting/Central Communication Scheduling 05/27/2022 Comprehensive Visit Orthopedic Surgery Markus Sams M.D., Ph.D. [address] [place] [phone] 05/29/2022 Office Visit Otorhinolaryngology Dex Matta APRN, C.N.P., M.S.N. [address] [place] [phone] 05/29/2022 Office Visit Otorhinolaryngology Nadeem Maradiaga, P.Murtaza.-Arley., M.S. [address] [place] [phone] 05/31/2022 Appointment Radiology Guilherme Matt MPAS, Jennifer., M.S. [address] [place] [phone] 06/05/2022 Appointment Laboratory Medicine Angélica Granger P.A.-C. [address] [place] [phone] 06/19/2022 Appointment Laboratory Medicine Angélica Granger P.A.-C. [address] [place] [phone] 07/03/2022 Appointment Laboratory Medicine Angélica Granger P.A.-C. [address] [place] [phone] 07/17/2022 Appointment Laboratory Medicine Angélica Granger P.A.-C. [address] [place] [phone] 07/31/2022 Appointment Laboratory Medicine Angélica Granger P.A.-C. [address] [place] [phone] 08/14/2022 Appointment Laboratory Medicine Angélica Granger P.A.-C. [address] [place] [phone] 08/28/2022 Appointment Laboratory Angélica oRyal P.A.-C. [address] [place] [phone] documented as of this encounter Visit Diagnoses Not on filedocumented in this encounter Additional Health Concerns Assessment Noted Time PHQ-9 Depression Total Score: 3 11/22/2019 7:34 AM CDT documented as of this encounter Care Teams Fashion Show Director Relationship Specialty Start Date End Date Elsewhere, Pcp PCP - General Family Medicine 07/29/17 documented as of this encounter
--- OUTSIDE RECORDS SUMMARY | 2022-05-17 18:54 | XMS_ITS | Encounter Summary ---
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 [address] [place] [phone] 05/23/2022 Clinical Admitting/Central Communication Scheduling 05/27/2022 Comprehensive Visit Orthopedic Surgery Markus Sams M.D., Ph.D. [address] [place] [phone] 05/29/2022 Office Visit Otorhinolaryngology Dex Matta APRN, C.N.P., M.S.N. [address] [place] [phone] 05/29/2022 Office Visit Otorhinolaryngology Nadeem Maradiaga, P.A.-C., M.S. [address] [place] [phone] 05/31/2022 Appointment Radiology Guilherme Matt MPAS, P.Murtaza.Marie., M.S. [address] [place] [phone] 06/05/2022 Appointment Laboratory Medicine Angélica Granger P.A.-C. [address] [place] [phone] 06/19/2022 Appointment Laboratory Medicine Angélica Granger P.A.-C. [address] [place] [phone] 07/03/2022 Appointment Laboratory Medicine Angélica Granger P.A.-C. [address] [place] [phone] 07/17/2022 Appointment Laboratory Medicine Angélica Granger P.A.-C. [address] [place] [phone] 07/31/2022 Appointment Laboratory Medicine Angélica Granger P.A.-C. [address] [place] [phone] 08/14/2022 Appointment Laboratory Medicine Angélica Granger P.A.-C. [address] [place] [phone] 08/28/2022 Appointment Laboratory Medicine Angélica Granger P.A.-C. [address] [place] [phone] documented as of this encounter Procedures Procedure [...] Organization Address City/State/ZIP Code Phon e Number [facility] NA documented in this encounter Visit Diagnoses Not on filedocumented in this encounter Additional Health Concerns Assessment Noted Time PHQ-9 Depression Total Score: 3 11/22/2019 7:34 AM CDT documented as of this encounter Care Teams Creamery Worker Relationship Specialty Start Date End Date Elsewhere, Pcp PCP - General Family Medicine 07/29/17 documented as of this encounter
--- OUTSIDE RECORDS SUMMARY | 2022-05-17 18:54 | XMS_ITS | Encounter Summary ---
:1955 Author Organization [facility] Address [address] [place] [address] Care Team Providers Name Role Phone Elsewhere, Pcp Primary Care Provider Unavailable Encounter Details Date Type Department Care Team Description 12/01/2019 Orders Only Curt Rene [facility] Michele Granger for Transplantation and P.A.-C. 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 [address] [place] [phone] 05/23/2022 Clinical Admitting/Central Communication Scheduling 05/27/2022 Comprehensive Visit Orthopedic Surgery Markus Sams M.D., Ph.D. [address] [place] [phone] 05/29/2022 Office Visit Otorhinolaryngology Dex Matta APRN, C.N.P., M.S.N. [address] [place] [phone] 05/29/2022 Office Visit Otorhinolaryngology Nadeem Maradiaga, P.Murtaza.-Arley., M.S. [address] [place] [address] [phone] 05/31/2022 Appointment Radiology Guilherme Matt MPAS, Jennifer., M.S. [address] [place] [phone] 06/05/2022 Appointment Laboratory Medicine Angélica Granger P.A.-C. [address] [place] [address] [phone] 06/19/2022 Appointment Laboratory Medicine Angélica Granger P.A.-C. [address] [place] [phone] 07/03/2022 Appointment Laboratory Medicine Angélica Granger P.A.-C. [address] [place] [phone] 07/17/2022 Appointment Laboratory Medicine Angélica Granger P.A.-C. [address] [place] [phone] 07/31/2022 Appointment Laboratory Medicine Angélica Granger P.A.-C. [address] [place] [phone] 08/14/2022 Appointment Laboratory Medicine Angélica Granger P.A.-C. [address] [place] [phone] 08/28/2022 Appointment Laboratory Angélica Royal P.A.-C. [address] [place] [phone] documented as of this encounter Visit Diagnoses Not on filedocumented in this encounter Additional Health Concerns Assessment Noted Time PHQ-9 Depression Total Score: 3 11/22/2019 7:34 AM CDT documented as of this encounter Care Teams Electronic Assembler Relationship Specialty Start Date End Date Elsewhere, Pcp PCP - General Family Medicine 07/29/17 documented as of this encounter
--- OUTSIDE RECORDS SUMMARY | 2022-05-17 18:54 | XMS_ITS | Encounter Summary ---
:1955 Author Organization [facility] Address [address] [place] [address] Care Team Providers Name Role Phone Elsewhere, Pcp Primary Care Provider Unavailable Reason for Referral Outpatient (Routine) - Closed Specialty Diagnoses / Procedures Referred By Contact Refer red To Contact Dermatology Diagnoses Squamous Cell Carcinoma In Situ Tres Llamas M.D. [facility] [address] [place] [address] Referral ID Status Reason Start Date Expiration Date Visits Requ ested Visits Authorized [id number] Closed 11/26/2019 11/25/2020 1 1 Scheduling Instructions Vertex scalp, SCCIS, ED&C Encounter Details Date Type Department Care Team Description 11/26/2019 Orders Only Department of [place] Squam ous Cell Dermatology in [place] Carcinoma In Situ [place], [place] [address] [address] (Primary Dx) [address] [place] [address] [place], [place] [phone] (Wo rk) [id number] [phone] Social History Tobacco Use Types Packs/Day Years [...] Date Recorded 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 [address] [place] [address] [phone] 05/29/2022 Office Visit Otorhinolaryngology Dex Matta APRN, C.N.P., M.S.N. [address] [place] [address] [phone] 05/29/2022 Office Visit Otorhinolaryngology Nadeem Maradiaga, Jennifer., M.S. [address] [place] [phone] 05/31/2022 Appointment Radiology Guilherme Matt MPAS, Edmundo, M.S. [address] [place] [phone] 06/05/2022 Appointment Laboratory Medicine Angélica Granger P.A.-C. [address] [place] [phone] 06/19/2022 Appointment Laboratory Medicine Angélica Granger P.A.-C. [address] [place] [phone] 07/03/2022 Appointment Laboratory Medicine Angélica Granger P.A.-C. [address] [place] [phone] 07/17/2022 Appointment Laboratory Medicine Angélica Granger P.A.-C. [address] [place] [phone] 07/31/2022 Appointment Laboratory Medicine Angélica Granger P.A.-C. [address] [place] [phone] 08/14/2022 Appointment Laboratory Medicine Angélica Granger P.A.-C. [address] [place] [phone] 08/28/2022 Appointment Laboratory Medicine Angélica Granger P.A.-C. 200 [place] [phone] Scheduled Referrals Name Type Priority Associated Order [...] documented as of this encounter Care Teams Direct Marketing Analyst Relationship Specialty Start Date End Date Elsewhere, Pcp PCP - General Family Medicine 07/29/17 documented as of this encounter
--- OUTSIDE RECORDS SUMMARY | 2022-05-17 18:54 | XMS_ITS | Encounter Summary ---
:1955 Author Organization [facility] Address [address] [place] [address] Care Team Providers Name Role Phone Elsewhere, Pcp Primary Care Provider Unavailable Reason for Visit Reason Comments Med Refill Encounter Details Date Type Department Care Team Description 12/01/2019 Refill [facility] Tiff[facility] Blackman M.D. 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 [address] [place] [phone] 05/23/2022 Clinical Admitting/Central Communication Scheduling 05/27/2022 Comprehensive Visit Orthopedic Surgery Markus Sams M.D., Ph.D. [address] [place] [phone] 05/29/2022 Office Visit Otorhinolaryngology Dex Matta, RAMONA, C.N.P., M.S.N. [address] [place] [phone] 05/29/2022 Office Visit Otorhinolaryngology Nadeem Maradiaga, P.Murtaza.-C., M.S. [address] [place] [address] [phone] 05/31/2022 Appointment Radiology Guilherme Matt MPAS, PMaryanne., M.S. [address] [place] [address] [phone] 06/05/2022 Appointment Laboratory Medicine Angélica Granger P.A.-C. [address] [place] [address] [phone] 06/19/2022 Appointment Laboratory Medicine Angélica Granger P.A.-C. [address] [place] [phone] 07/03/2022 Appointment Laboratory Medicine Angélica Granger P.A.-C. [address] [place] [phone] 07/17/2022 Appointment Laboratory Medicine Angélica Granger P.A.-C. [address] [place] [phone] 07/31/2022 Appointment Laboratory Medicine Angélica Granger P.A.-C. [address] [place] [phone] 08/14/2022 Appointment Laboratory Angélica Royal P.A.-C. [address] [place] [phone] 08/28/2022 Appointment Laboratory Angélica Royal P.A.-C. [address] [place] [phone] documented as of this encounter Visit Diagnoses Not on filedocumented in this encounter Additional Health Concerns Assessment Noted Time PHQ-9 Depression Total Score: 3 11/22/2019 7:34 AM CDT documented as of this encounter Care Teams Social And Human Services Assistant Relationship Specialty Start Date End Date Elsewhere, Pcp PCP - General Family Medicine 07/29/17 documented as of this encounter
--- OUTSIDE RECORDS SUMMARY | 2022-05-17 18:54 | XMS_ITS | Encounter Summary ---
:1955 Author Organization [facility] Address [address] [place] [address] Care Team Providers Name Role Phone Elsewhere, Pcp Primary Care Provider Unavailable Encounter Details Date Type Department Care Team Description 11/23/2019 Orders Only 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 [address] [place] [phone] 05/23/2022 Clinical Admitting/Central Communication Scheduling 05/27/2022 Comprehensive Visit Orthopedic Surgery Markus Sams M.D., Ph.D. [address] [place] [phone] 05/29/2022 Office Visit Otorhinolaryngology Dex Matta, RAMONA, C.N.P., M.S.N. [address] [place] [phone] 05/29/2022 Office Visit Otorhinolaryngology Nadeem Maradiaga, PEdgar.Marie., M.S. [address] [place] [phone] 05/31/2022 Appointment Radiology Guilherme Matt, RASTA, Jennifer., M.S. [address] [place] [phone] 06/05/2022 Appointment Laboratory Medicine Angélica Granger P.A.-C. [address] [place] [phone] 06/19/2022 Appointment Laboratory Medicine Angélica Granger P.A.-C. [address] [place] [phone] 07/03/2022 Appointment Laboratory Medicine Angélica Granger P.A.-C. [address] [place] [phone] 07/17/2022 Appointment Laboratory Medicine Angélica Granger P.A.-C. [address] [place] [phone] 07/31/2022 Appointment Laboratory Medicine Angélica Granger P.A.-C. [address] [place] [phone] 08/14/2022 Appointment Laboratory Medicine Angélica Granger P.A.-C. [address] [place] [phone] 08/28/2022 Appointment Laboratory Angélica Royal P.A.-C. [address] [place] [phone] documented as of this encounter Visit Diagnoses Not on filedocumented in this encounter Additional Health Concerns Assessment Noted Time PHQ-9 Depression Total Score: 3 11/22/2019 7:34 AM CDT documented as of this encounter Care Teams Betting Agency Manager Relationship Specialty Start Date End Date Elsewhere, Pcp PCP - General Family Medicine 07/29/17 documented as of this encounter
--- OUTSIDE RECORDS SUMMARY | 2022-05-17 18:54 | XMS_ITS | Encounter Summary ---
:1955 Author Organization [facility] Address [address] [place] [address] Care Team Providers Name Role Phone Elsewhere, Pcp Primary Care Provider Unavailable Encounter Details Date Type Department Care Team Description 12/06/2019 Orders Only Curt Rene [facility] Michele Granger for Transplantation and P.A.-C. 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 [address] [place] [phone] 05/23/2022 Clinical Admitting/Central Communication Scheduling 05/27/2022 Comprehensive Visit Orthopedic Surgery Markus Sams M.D., Ph.D. [address] [place] [phone] 05/29/2022 Office Visit Otorhinolaryngology Dex Matta APRN, C.N.P., M.S.N. [address] [place] [phone] 05/29/2022 Office Visit Otorhinolaryngology Nadeem Maradiaga, P.Murtaza.-Arley., M.S. [address] [place] [address] [phone] 05/31/2022 Appointment Radiology Guilherme Matt MPAS, Jennifer., M.S. [address] [place] [phone] 06/05/2022 Appointment Laboratory Medicine Angélica Granger P.A.-C. [address] [place] [phone] 06/19/2022 Appointment Laboratory Medicine Angélica Granger P.A.-C. [address] [place] [phone] 07/03/2022 Appointment Laboratory Medicine Angélica Granger P.A.-C. [address] [place] [phone] 07/17/2022 Appointment Laboratory Medicine Angélica Granger P.A.-C. [address] [place] [phone] 07/31/2022 Appointment Laboratory Medicine Angélica Granger P.A.-C. [address] [place] [phone] 08/14/2022 Appointment Laboratory Medicine Angélica Granger P.A.-C. [address] [place] [phone] 08/28/2022 Appointment Laboratory Angélica Royal P.A.-C. [address] [place] [phone] documented as of this encounter Visit Diagnoses Not on filedocumented in this encounter Additional Health Concerns Infection Onset Date Last Indicated Resolved Time COVID19 Pending 12/13/2019 12/13/2019 12/14/2019 11:03 AM CDT Assessment Noted Time PHQ-9 Depression Total Score: 3 11/22/2019 7:34 AM CDT documented as of this encounter Care Teams Mine Safety Engineer Relationship Specialty Start Date End Date Elsewhere, Pcp PCP - General Family Medicine 07/29/17 documented as of this encounter
--- OUTSIDE RECORDS SUMMARY | 2022-05-17 18:54 | XMS_ITS | Encounter Summary ---
:1955 Author Organization [facility] Address [address] [place] [address] Care Team Providers Name Role Phone Elsewhere, Pcp Primary Care Provider Unavailable Encounter Details Date Type Department Care Team Description 11/23/2019 Clinical Communication Bonny Blount [facility] for Leena, MMaury Transplantation and [address] [place] [address] Clinical 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 [address] [place] [phone] 05/23/2022 Clinical Admitting/Central Communication Scheduling 05/27/2022 Comprehensive Visit Orthopedic Surgery Markus Sams M.D., Ph.D. [address] [place] [phone] 05/29/2022 Office Visit Otorhinolaryngology Dex Matta, RAMONA, C.N.P., M.S.N. [address] [place] [phone] 05/29/2022 Office Visit Otorhinolaryngology Nadeem Maradiaga, PEdgar.Marie., M.S. [address] [place] [phone] 05/31/2022 Appointment Radiology Guilherme Matt, RASTA, Jennifer., M.S. [address] [place] [phone] 06/05/2022 Appointment Laboratory Medicine Angélica Granger P.A.-C. [address] [place] [phone] 06/19/2022 Appointment Laboratory Medicine Angélica Granger P.A.-C. [address] [place] [phone] 07/03/2022 Appointment Laboratory Medicine Angélica Granger P.A.-C. [address] [place] [phone] 07/17/2022 Appointment Laboratory Medicine Angélica Granger P.A.-C. [address] [place] [phone] 07/31/2022 Appointment Laboratory Medicine Angélica Granger P.A.-C. [address] [place] [phone] 08/14/2022 Appointment Laboratory Medicine Angélica Granger P.A.-C. [address] [place] [phone] 08/28/2022 Appointment Laboratory Angélica Royal P.A.-C. [address] [place] [phone] documented as of this encounter Visit Diagnoses Not on filedocumented in this encounter Additional Health Concerns Assessment Noted Time PHQ-9 Depression Total Score: 3 11/22/2019 7:34 AM CDT documented as of this encounter Care Teams Dermatology Teacher Relationship Specialty Start Date End Date Elsewhere, Pcp PCP - General Family Medicine 07/29/17 documented as of this encounter
--- OUTSIDE RECORDS SUMMARY | 2022-05-17 18:54 | XMS_ITS | Encounter Summary ---
:1955 Author Organization [facility] Address [address] [place] [address] Care Team Providers Name Role Phone Elsewhere, Pcp Primary Care Provider Unavailable Reason for Visit Outpatient (Routine) - Closed Specialty Diagnoses / Procedures Referred By Contact Refer red To Contact Pulmonary Medicine Diagnoses Transplant Liver (HCC) Angélica Granger, [facility] P.A.-C. [address] [place] [phone] Referral ID Status Reason Start Date Expiration Date Visits V isits Requested Authorized [id number] Closed Specialty 11/23/2019 11/22/2020 1 1 Services Required Encounter Details Date Type Department Care Team Description 11/23/2019 Office Visit Curt Diaz, [facility] (HCC) Transplantation and [address] [place] [address] Clinical [facility] in [place], [place] [phone] [place] [address] [place] [address] (Work) [phone] Social History Tobacco Use Types Packs/Day Years [...] 12/15/2021 organizations such as zoroastrianism groups, unions, [employer] or athletic groups, or school groups? 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 All scripts were sent to [facility] in [place]. End dictation questions were answered. 25 minutes counseling/40 minutes total time documented in this encounter Plan of Treatment Upcoming Encounters Date Type Specialty Care Team Description 05/22/2022 Appointment Laboratory Medicine Angélica Granger P.A.-Janette [address] [place] [phone] 05/23/2022 Clinical Admitting/Central Communication Scheduling 05/27/2022 Comprehensive Visit Orthopedic Surgery Markus Sams M.D., Ph.D. [address] [place] [phone] 05/29/2022 Office Visit Otorhinolaryngology Dex Matta APRN, C.N.P., M.S.N. [address] [place] [phone] 05/29/2022 Office Visit Otorhinolaryngology Nadeem Maradiaga P.A.-Arley., M.S. [address] [place] [phone] 05/31/2022 Appointment Radiology Guilherme Matt MPAS, Edmundo, M.S. [address] [place] [address] [phone] 06/05/2022 Appointment Laboratory Medicine Angélica Granger P.A.-C. [address] [place] [phone] 06/19/2022 Appointment Laboratory Medicine Angélica Granger P.A.-C. [address] [place] [phone] 07/03/2022 Appointment Laboratory Medicine Angélica Granger P.A.-C. [address] [place] [phone] 07/17/2022 Appointment Laboratory Medicine Angélica Granger P.A.-C. [address] [place] [phone] 07/31/2022 Appointment Laboratory Medicine Angélica Granger P.A.-C. [address] [place] [phone] 08/14/2022 Appointment Laboratory Medicine Angélica Granger P.A.-C. [address] [place] [phone] 08/28/2022 Appointment Laboratory Medicine Angélica Granger P.A.-C. [address] [place] [phone] documented as of this encounter Visit Diagnoses Diagnosis Transplant Liver (HCC) documented in this encounter Additional Health Concerns Assessment Noted Time PHQ-9 Depression Total Score: 3 11/22/2019 7:34 AM CDT documented as of this encounter Care Teams Horse Groomer Relationship Specialty Start Date End Date Elsewhere, Pcp PCP - General Family Medicine 07/29/17 documented as of this encounter
--- OUTSIDE RECORDS SUMMARY | 2022-05-17 18:54 | XMS_ITS | Encounter Summary ---
:1955 Author Organization [facility] Address [address] [place] [address] Care Team Providers Name Role Phone Elsewhere, Pcp Primary Care Provider Unavailable Encounter Details Date Type Department Care Team Description 12/06/2019 Clinical Communication nAgélica Ching [place] for J, P.A.-C. 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 [address] [place] [phone] 05/23/2022 Clinical Admitting/Central Communication Scheduling 05/27/2022 Comprehensive Visit Orthopedic Surgery Marksu Sams M.D., Ph.D. [address] [place] [phone] 05/29/2022 Office Visit Otorhinolaryngology Dex Matta APRN, C.N.P., M.S.N. [address] [place] [phone] 05/29/2022 Office Visit Otorhinolaryngology Nadeem Maradiaga, P.Murtaza.-Arley., M.S. [address] [place] [address] [phone] 05/31/2022 Appointment Radiology Guilherme Matt MPAS, Jennifer., M.S. [address] [place] [phone] 06/05/2022 Appointment Laboratory Medicine Angélica Granger P.A.-C. [address] [place] [address] [phone] 06/19/2022 Appointment Laboratory Medicine Angélica Granger P.A.-C. [address] [place] [phone] 07/03/2022 Appointment Laboratory Medicine Angélica Granger P.A.-C. [address] [place] [phone] 07/17/2022 Appointment Laboratory Medicine Angélica Granger P.A.-C. [address] [place] [phone] 07/31/2022 Appointment Laboratory Medicine Angélica Granger P.A.-C. [address] [place] [phone] 08/14/2022 Appointment Laboratory Medicine Angélica Granger P.A.-C. [address] [place] [phone] 08/28/2022 Appointment Laboratory Medicine Angélica Granger P.A.-C. [address] [place] [phone] documented as of this encounter Results SARS Coronavirus-2, PCR Asymptomatic (12/13/2019 7:47 PM CDT) [facility] Method Time Signature SARS Swab, 12/14/2019 DTL [...] its performa nce characteristics determined by [facility] in a manner co nsistent with CLIA requirements. Independent review by the U.S. Food and Drug Administration is pending. Visit the CDC website: https://www.cdc.gov/coronavirus/ ?? for the most recent guidelines on [place] virus testing. Fact Sheet for Healthcare Providers: (https://www.Memrise/it-mmfil es/ Provider_Fact_Sheet_for_[facility]_COVI D-19.pdf) Fact Sheet for Patients: (https://www.Memrise/it-mmfil es/ Patient_Fact_Sheet_for_COVID-19.pdf) Specimen Anatomical Collection Method Collection Time Receive d Time (Source) Location / / Volume Laterality Varies 12/13/2019 7:47 PM 0 7:47 (Nasopharynx) CDT PM CDT Angélica Granger P.A.-C. LAB MICROBIOLOGY - GENERAL O RDERABLES Performing Organization Address City/State/ZIP Code Phon e Number [facility] - 200 [place], [place] [address] [place] [address] [facility] 200 [facility] SARS Coronavirus 2 IgG Ab, Serum (12/13/2019 3:10 PM CDT) athologist Signature SARS-CoV-2 IgG Negative Negative 12/14/2019 [...] ?? Testing was performed using the EUROIMMUN Hziw-SEMU-CdY-2 HARRIET (IgG), which has received Emergency Use Authori zation (EUA) by the U.S. Food and Drug Administration . ?? Fact sheets for this EUA assay can be fo und at the following links: ?? Factsheet for healthcare Providers: ?? https://www.fda.gov/media/907108/downloa d Factsheet for healthcare Patients: ?? https://www.fda.gov/media/153482/downloa d Specimen Anatomical Collection Method Collection Time Receive d Time (Source) Location / / Volume Laterality Blood (Blood, 12/13/2019 3:10 PM 12/13/19 20 8:09 Venous) CDT PM CDT Angélica Granger P.A.-C. LAB MICROBIOLOGY - BLOOD ORD ERABLES Performing Organization Address City/State/ZIP Code Phon e Number [facility] [address] [place] [address] [facility] [place] [address] Laboratory Medicine and Pathology [address] [place] documented in this encounter Visit Diagnoses Diagnosis Encounter For Screening For Other Viral Diseases (COVID-19) - Primary documented in this encounter Additional Health Concerns Assessment Noted Time PHQ-9 Depression Total Score: 3 11/22/2019 7:34 AM CDT documented as of this encounter Care Teams District Manager Primary Care Sales Relationship Specialty Start Date End Date Elsewhere, Pcp PCP - General Family Medicine 07/29/17 documented as of this encounter
--- OUTSIDE RECORDS SUMMARY | 2022-05-17 18:54 | XMS_ITS | Encounter Summary ---
:1955 Author Organization [facility] Address [address] [place] [address] Care Team Providers Name Role Phone Elsewhere, Pcp Primary Care Provider Unavailable Reason for Visit Reason Comments COVID Inquiry Encounter Details Date Type Department Care Team Description 11/26/2019 Clinical Communication Department of BHUMI [place] Inquiry Dermatology [place] C.N.P., D.N.P. 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 [address] [place] [phone] 05/23/2022 Clinical Admitting/Central Communication Scheduling 05/27/2022 Comprehensive Visit Orthopedic Surgery Markus Sams M.D., Ph.D. [address] [place] [phone] 05/29/2022 Office Visit Otorhinolaryngology Dex Matta APRN, C.N.P., M.S.N. [address] [place] [phone] 05/29/2022 Office Visit Otorhinolaryngology Nadeem Maradiaga, Jennifer., M.S. [address] [place] [phone] 05/31/2022 Appointment Radiology Guilherme Matt MPAS, PMaryanne., M.S. [address] [place] [phone] 06/05/2022 Appointment Laboratory Medicine Angélica Granger P.A.-C. [address] [place] [phone] 06/19/2022 Appointment Laboratory Medicine Angélica Granger P.A.-C. [address] [place] [phone] 07/03/2022 Appointment Laboratory Medicine Angélica Granger P.A.-C. [address] [place] [phone] 07/17/2022 Appointment Laboratory Medicine Angélica Granger P.A.-C. [address] [place] [phone] 07/31/2022 Appointment Laboratory Medicine Angélica Granger P.A.-C. [address] [place] [phone] 08/14/2022 Appointment Laboratory Medicine Angélica Granger P.A.-C. [address] [place] [phone] 08/28/2022 Appointment Laboratory Medicine Angélica Granger P.A.-C. [address] [place] [phone] documented as of this encounter Visit Diagnoses Not on filedocumented in this encounter Additional Health Concerns Assessment Noted Time PHQ-9 Depression Total Score: 3 11/22/2019 7:34 AM CDT documented as of this encounter Care Teams Land Management Forester Relationship Specialty Start Date End Date Elsewhere, Pcp PCP - General Family Medicine 07/29/17 documented as of this encounter
--- OUTSIDE RECORDS SUMMARY | 2022-05-17 18:54 | XMS_ITS | Encounter Summary ---
:1955 Author Organization [facility] Address [address] [place] [address] Care Team Providers Name Role Phone Elsewhere, Pcp Primary Care Provider Unavailable Reason for Referral MRI/CAT/PET Scan (Routine) - Closed Specialty Diagnoses / Procedures Referred By Contact Refer red To Contact Radiology Diagnoses Cough Unspecified Type Angélica Granger P.A.-C. [facility] Procedures CT Chest without IV Contrast [address] [place] [phone] Referral ID Status Reason Start Date Expiration Date Visits Requ ested Visits Authorized [id number] Closed 11/22/2019 11/21/2020 1 1 Reason for Visit MRI/CAT/PET Scan (Routine) - Closed Specialty Diagnoses / Procedures Referred By Contact Refer red To Contact Radiology Diagnoses Cough Unspecified Type Angélica Granger P.A.-C. [facility] Procedures CT Chest without IV Contrast [address] [place] [phone] Referral ID Status Reason Start Date Expiration Date Visits Requ ested Visits Authorized [id number] Closed 11/22/2019 11/21/2020 1 1 Encounter Details Date Type Department Care Team Description 11/23/2019 Hospital Encounter Department of Radiology, Angélica Granger [facility], in [place], [place] [address] [email or web address] [address] [place] [phone] Social History Tobacco Use Types Packs/Day Years [...] Date Recorded 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 levothyroxine TAKE 1 TABLET BY 90 tablet 0 11/30/201911/30 (SYNTHROID, LEVOTHROID) MOUTH EVERY MORNING 25 mcg tablet BEFORE BREAKFAST multivitamin tablet Take 1 tablet by 0 06/18/2013 10/12/2021 mouth daily. Maintenance mycophenolate (CELLCEPT) TAKE 1 TABLET BY 180 tablet 3 11/2111/06/2020 500 mg MOUTH TWICE DAILY tabletIndications: Transplant Liver (HCC) predniSONE (DELTASONE) 5 Take 1 tablet (5 mg 90 tablet 3 07/20/2020 mg tabletIndications: total) by mouth Transplant Liver ([facility]), daily. Medication Therapy Programming Intern Not Anticoagulant tacrolimus (PROGRAF) 0.5 Take 2 [...] Laboratory Medicine Angélica Granger P.A.-C. [address] [place] [phone] 05/23/2022 Clinical Admitting/Central Communication Scheduling 05/27/2022 Comprehensive Visit Orthopedic Surgery Markus Sams M.D., Ph.D. [address] [place] [phone] 05/29/2022 Office Visit Otorhinolaryngology Dex Matta APRN, C.N.P., M.S.N. [address] [place] [phone] 05/29/2022 Office Visit Otorhinolaryngology Nadeem Maradiaga P.A.-C., M.S. [address] [place] [phone] 05/31/2022 Appointment Radiology Guilherme Matt MPAS, P.A.-C., M.S. [address] [place] [phone] 06/05/2022 Appointment Laboratory Medicine Angélica Granger P.A.-C. [address] [place] [phone] 06/19/2022 Appointment Laboratory Medicine Angélica Granger P.A.-C. [address] [place] [phone] 07/03/2022 Appointment Laboratory Medicine Angélica Granger P.A.-C. [address] [place] [phone] 07/17/2022 Appointment Laboratory Medicine Angélica Granger P.A.-C. [address] [place] [phone] 07/31/2022 Appointment Laboratory Medicine Angélica Granger P.A.-C. [address] [place] [phone] 08/14/2022 Appointment Laboratory Medicine Angélica Granger P.A.-C. [address] [place] [phone] 08/28/2022 Appointment Laboratory Medicine EmilieAngélica wilcox Edmundo Stern [address] [place] [address] documented as of this encounter Procedures Procedure [...] a multifocal infectious process. Angélica Granger P.A.-C. IMG CT PROCEDURES documented in this encounter Visit Diagnoses Diagnosis Cough Unspecified Type documented in this encounter Additional Health Concerns Assessment Noted Time PHQ-9 Depression Total Score: 3 11/22/2019 7:34 AM CDT documented as of this encounter Care Teams Php Engineer Relationship Specialty Start Date End Date Elsewhere, Pcp PCP - General Family Medicine 07/29/17 documented as of this encounter
--- OUTSIDE RECORDS SUMMARY | 2022-05-17 18:54 | XMS_ITS | Encounter Summary ---
:1955 Author Organization [facility] Address [address] [place] [address] Care Team Providers Name Role Phone Elsewhere, Pcp Primary Care Provider Unavailable Encounter Details Date Type Department Care Team Description 12/06/2019 Orders Only Blanca Luis ansplant [facility] for M, R.N. 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 [address] [place] [phone] 05/23/2022 Clinical Admitting/Central Communication Scheduling 05/27/2022 Comprehensive Visit Orthopedic Surgery Markus Sams M.D., Ph.D. [address] [place] [phone] 05/29/2022 Office Visit Otorhinolaryngology Dex Matta APRN, C.N.P., M.S.N. [address] [place] [phone] 05/29/2022 Office Visit Otorhinolaryngology Nadeem Maradiaga, P.A.-C., M.S. [address] [place] [phone] 05/31/2022 Appointment Radiology Guilherme Matt MPAS, P.Murtaza.-Janette, M.S. [address] [place] [phone] 06/05/2022 Appointment Laboratory Medicine GunAngélica wilcox P.A.-C. [address] [place] [phone] 06/19/2022 Appointment Laboratory Medicine Angélica Granger P.A.-C. [address] [place] [phone] 07/03/2022 Appointment Laboratory Medicine Angélica Granger P.A.-C. [address] [place] [phone] 07/17/2022 Appointment Laboratory Medicine Angélica Granger P.A.-C. [address] [place] [phone] 07/31/2022 Appointment Laboratory Medicine Angélica Granger P.A.-C. [address] [place] [phone] 08/14/2022 Appointment Laboratory Medicine Angélica Granger P.A.-C. [address] [place] [phone] 08/28/2022 Appointment Laboratory Medicine Angélica Granger P.A.-C. [address] [place] [phone] documented as of this encounter Visit Diagnoses Diagnosis Transplant Liver (HCC) - Primary documented in this encounter Additional Health Concerns Infection Onset Date Last Indicated Resolved Time COVID19 Pending 12/13/2019 12/13/2019 12/14/2019 11:03 AM CDT Assessment Noted Time PHQ-9 Depression Total Score: 3 11/22/2019 7:34 AM CDT documented as of this encounter Care Teams Surgery Center Administrator Relationship Specialty Start Date End Date Elsewhere, Pcp PCP - General Family Medicine 07/29/17 documented as of this encounter
--- OUTSIDE RECORDS SUMMARY | 2022-05-17 18:55 | XMS_ITS | Encounter Summary ---
:1955 Author Organization [facility] Address [address] [place] [address] Care Team Providers Name Role Phone Elsewhere, Pcp Primary Care Provider Unavailable Encounter Details Date Type Department Care Team Description 11/22/2019 Hospital Encounter Department of Angélica Granger ant Liver (HCC); Radiology, Kd Stern P.A.-C. 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 Medication Therapy Custodial Not Anticoagulant tacrolimus (PROGRAF) 0.5 Take 2 [...] Laboratory Medicine Angélica Granger P.A.-C. [address] [place] [phone] 05/23/2022 Clinical Admitting/Central Communication Scheduling 05/27/2022 Comprehensive Visit Orthopedic Surgery Markus Sams M.D., Ph.D. [address] [place] [phone] 05/29/2022 Office Visit Otorhinolaryngology Dex Matta APRN, C.N.P., M.S.N. [address] [place] [phone] 05/29/2022 Office Visit Otorhinolaryngology Nadeem Maradiaga, P.A.-C., M.S. [address] [place] [phone] 05/31/2022 Appointment Radiology Guilherme Matt MPAS, P.A.-Arley., M.S. [address] [place] [phone] 06/05/2022 Appointment Laboratory Medicine Angélica Granger P.A.-C. [address] [place] [phone] 06/19/2022 Appointment Laboratory Medicine Angélica Granger P.A.-C. [address] [place] [phone] 07/03/2022 Appointment Laboratory Medicine Angélica Granger P.A.-C. [address] [place] [phone] 07/17/2022 Appointment Laboratory Medicine Angélica Granger P.A.-C. [address] [place] [phone] 07/31/2022 Appointment Laboratory Medicine Angélica Granger P.A.-C. [address] [place] [phone] 08/14/2022 Appointment Laboratory Medicine Angélica Granger P.A.-C. [address] [place] [phone] 08/28/2022 Appointment Laboratory Medicine Angélica Granger P.A.-C. [address] [place] [phone] documented as of this encounter Procedures Procedure Name Priority Date/Time Associated Diagnosis Comme nts US LIVER RAD - Routine 11/22/2019 9:52 Transplant Liver Results for TRANSPLANT (most inpatients AM CDT (HCC) this procedure and all Medication Therapy are in th e outpatients) Nail Assembly Machine Operator Not results Anticoagulant section. documented in this [...] chronic re nal disease. Angélica Granger P.A.-C. IMAutumn US PROCEDURES documented in this encounter Visit Diagnoses Diagnosis Transplant Liver (HCC) Medication Therapy Custodial Not Anticoa gulant documented in this encounter Additional Health Concerns Assessment Noted Time PHQ-9 Depression Total Score: 3 11/22/2019 7:34 AM CDT documented as of this encounter Care Teams Sporting Goods Salesperson Relationship Specialty Start Date End Date Elsewhere, Pcp PCP - General Family Medicine 07/29/17 documented as of this encounter
--- OUTSIDE RECORDS SUMMARY | 2022-05-17 18:55 | XMS_ITS | Encounter Summary ---
:1955 Author Organization [facility] Address [address] [place] [address] Care Team Providers Name Role Phone Elsewhere, Pcp Primary Care Provider Unavailable Encounter Details Date Type Department Care Team Description 11/17/2019 Hospital Encounter Department of [facility], Chronic Kidney Disease Stage 4 Glomerular Filtration Rate 15-29 (HCC); Laboratory Medicine Sada Hobson Transplant Liver (HCC); and Pathology, [address] [place] [address] Medication Therapy Programming Instructor Not Anticoa gulant; [facility] in [place], [place] Chronic Kidney Disease ; [place], [place] [address] Osteoporosis; [address] [facility] [phone] Screening Examination Prosta te Cancer [place], [place] (Work) [phone] Social History Tobacco Use Types Packs/Day Years [...] at Date Recorded 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 [address] [place] [phone] 05/23/2022 Clinical Admitting/Central Communication Scheduling 05/27/2022 Comprehensive Visit Orthopedic Surgery Markus Sams M.D., Ph.D. [address] [place] [phone] 05/29/2022 Office Visit Otorhinolaryngology Dex Matta APRN, C.N.P., M.S.N. [address] [place] [phone] 05/29/2022 Office Visit Otorhinolaryngology Nadeem Maradiaga, PEdgar.Marie., M.S. [address] [place] [phone] 05/31/2022 Appointment Radiology Guilherme Matt MPAS, PMaryanne., M.S. [address] [place] [phone] 06/05/2022 Appointment Laboratory Medicine Angélica Granger P.A.-C. [address] [place] [phone] 06/19/2022 Appointment Laboratory Medicine Angélica Granger P.A.-C. [address] [place] [phone] 07/03/2022 Appointment Laboratory Medicine Angélica Granger P.A.-C. [address] [place] [phone] 07/17/2022 Appointment Laboratory Medicine Angélica Granger P.A.-C. [address] [place] [phone] 07/31/2022 Appointment Laboratory Medicine Angélica Granger P.A.-C. [address] [place] [phone] 08/14/2022 Appointment Laboratory Medicine Angélica Granger P.A.-C. [address] [place] [phone] 08/28/2022 Appointment Laboratory Medicine Angélica Granger P.A.-C. [address] [place] [phone] documented as of this encounter Procedures Procedure [...] the resul ts Assisted Not section. Anticoagulant PROSTATE-SPECIFIC AG Routine 11/17/2019 9:29 Transplant Liver Results for this (PSA) SCRN, S AM CDT (HCC) procedure are in Medication Therapy the resul ts Programming Instructor Not section. Anticoagulant Screening Examination Prostate Cancer CYSTATIN C WITH EGFR Routine 11/17/2019 9:29 Chronic Kidney Re sults for this AM CDT Disease Stage 4 procedure ar e in Glomerular Filtration the re sults Rate 15-29 (HCC) section. TACROLIMUS LEVEL, B Routine 11/17/2019 9:29 Transplant Liver R esults for this AM CDT (HCC) procedure are in Medication Therapy the resul ts Programming Instructor Not section. Anticoagulant 25-HYDROXYVITAMIN D2 Routine 11/17/2019 [...] in (S-TSH) Medication Therapy the resul ts Assisted Not section. Anticoagulant ELECTROPHORESIS, Routine 11/17/2019 9:29 [...] are in Medication Therapy the resul ts Programming Instructor Not section. Anticoagulant FERRITIN, S Routine 11/17/2019 9:29 Chronic Kidney Results fo r this AM CDT Disease Stage 4 procedure ar e in Glomerular Filtration the re sults Rate 15-29 (HCC) section. COMPREHENSIVE Routine 11/17/2019 9:29 Transplant Liver Results for this METABOLIC PANEL, S/P AM CDT (HCC) procedure are in Medication Therapy the resul ts Assisted Not section. Anticoagulant MONONUCLEOSIS RNA/DNA Routine 11/17/2019 9:28 Transplant Liver Results for this AM CDT (HCC) procedure are in Medication Therapy the resul ts Assisted Not section. Anticoagulant ORGAN LIVER TX Routine 11/17/2019 9:28 Transplant Liver Result s for this AM CDT (HCC) procedure are in Medication Therapy the resul ts Assisted Not section. Anticoagulant LIPID PANEL, S Routine 11/17/2019 9:28 Transplant Liver Result s for this AM CDT (HCC) procedure are in Medication Therapy the resul ts Programming Instructor Not section. Anticoagulant IRON AND TOT Routine 11/17/2019 9:28 Chronic Kidney Results fo r this IRON-BINDING CAPACITY, AM CDT Disease Stage 4 pr ocedure are in S/P Glomerular Filtration the re sults Rate 15-29 (HCC) section. PROTHROMBIN TIME (PT), Routine 11/17/2019 9:28 Transplant Live r Results for this P AM CDT (HCC) procedure are in Medication Therapy the resul ts Programming Instructor Not section. Anticoagulant BILIRUBIN DIRECT, S/P Routine 11/17/2019 9:28 Transplant Liver Results for this AM CDT (HCC) procedure are in Medication Therapy the resul ts Assisted Not section. Anticoagulant documented in this encounter Results Immunofixation (11/17/2019 9:29 AM CDT) [facility] Convo Method Time Signature Immunofixation No monoclonal 03/21/2020 SDSC protein 3:32 PM CDT detected. Specimen Anatomical Collection Method Collection Time Receive d Time (Source) Location / / Volume Laterality Blood 11/17/2019 9:29 AM 0 CDT 10:24 AM CDT Otoniel Davis M.D. LAB BLOOD NON ADD-ON Performing Organization Address City/State/ZIP Code Phon e Number [facility] [address] [place], [place] [address] [facility] [place] [address] Laboratory Medicine and Pathology [address] [place] (ABNORMAL) Electrophoresis, Protein (11/17/2019 9:29 AM CDT) LOCK8 Method Time Signature Total Protein, 5.8 (L) 6.3 - 7.9 03/17/2020 SDSC S g/dL 11:43 AM CDT Albumin 3.3 [...] City/State/ZIP Code Phon e Number [facility] [address] [place], [place] [address] [place], [place] [address]t. [place] [address] Laboratory Medicine and Pathology [address] [place] (ABNORMAL) Tacrolimus, B (11/17/2019 9:29 AM CDT) athologist Signature Tacrolimus, B 1.7 (L) 5.0-15.0 11/17/2019 SDS (Trough) 5:32 PM CDT ng/mL Comment: ----ADDITIONAL [...] City/State/ZIP Code Phon e Number [facility] [address] [place], [place] [address] [facility] [place] [place] [address] Laboratory Medicine and Pathology [address] [place] PSA (Prostate-Specific Antigen) Screen (11/17/2019 9:29 AM CDT) athologist Signature Prostate-Specif 0.40 <=4.5 ng/mL 11/17/2019 DTL ic Ag 12:21 PM CDT Comment: ----ADDITIONAL INFORMATION---- The testing method is an electrochemilum inescence assay manufactured by [employer] and performed on the Modular or [...] P.A.-C. LAB BLOOD ADD-ON Performing Organization Address City/[facility] Code Phon e Number [facility] - [address] [place] [address] [facility] [place] [address] Laboratories-[facility] 200 [facility] (ABNORMAL) CBC no call back, reflex T/S [...] City/State/ZIP Code Phon e Number [facility] - 200 [place], [place] [address] [facility] [place] [address] Laboratories-[facility] 200 [facility] (ABNORMAL) S-TSH (Thyroid-Stimulating Hormone - Sensitive) (11/17/2019 9:29 AM CDT) P athologist Signature TSH, Sensitive 6.1 (H) 0.3 - 4.2 11/17/2019 DTL mIU/L 12:21 PM CDT Specimen Anatomical Collection Method Collection Time Receive d Time (Source) Location / / Volume Laterality Blood (Blood, 11/17/2019 9:29 AM 11/17/19 20 9:49 Venous) CDT AM CDT Angélica Granger P.A.-C. LAB BLOOD ADD-ON Performing Organization Address City/[facility] Phon e Number [facility] - [address] [place] [id number] [address] Hemoglobin A1c (11/17/2019 9:29 AM CDT) P athologist Signature Hemoglobin A1c, 5.5 4.0 - 5.6 11/17/2019 DTL B % 10:03 AM CDT Specimen Anatomical Collection Method Collection Time Receive d Time (Source) Location / / Volume Laterality Blood (Blood, 11/17/2019 9:29 AM 11/17/19 20 9:49 Venous) CDT AM CDT Angélica Granger P.A.-C. LAB BLOOD ADD-ON Performing Organization Address [facility] Phon e Number [facility] - [address] [place] [address] (ABNORMAL) Comprehensive Metabolic Panel (11/17/2019 9:29 AM [...] 11/17/2019 DTL Black/ mL/min/BSA 11:37 AM CDT Kyrgyz Comment: ----ADDITIONAL INFORMATION---- Estimated GFR calculated [...] City/State/ZIP Code Phon e Number [facility] - [address] [place], [place] [address] [facility] [place] [address] Laboratories-[facility] [address] 25-Hydroxyvitamin D2 [...] M.D. LAB BLOOD ADD-ON Performing Organization Address City/[facility]/ZIP Code Phon e Number [facility] [address] [place], [place] [address] [facility] [place] [place] [address] Laboratory Medicine and Pathology [address] [...] M.D. LAB BLOOD ADD-ON Performing Organization Address City/[facility] Phon e Number [facility] - [address] [place], [place] [address] [facility] [place] [address] Laboratories-[facility] [address] Uric Acid (11/17/2019 9:29 AM CDT) P athologist Signature Uric Acid, S 7.8 3.7 - 8.0 11/17/2019 DTL mg/dL 12:21 PM CDT Specimen Anatomical Collection Method Collection Time Receive d Time (Source) Location / / Volume Laterality Blood (Blood, 11/17/2019 9:29 AM 11/17/19 9:49 Venous) CDT AM CDT Joce Bailey M.D. LAB BLOOD ADD-ON Performing Organization Address City/[facility]/ZIP Code Phon e Number [facility] - [address] [place], [place] [address] [place] [id number] [place] [address] (ABNORMAL) Magnesium (11/17/2019 9:29 AM CDT) athologist Signature Magnesium, S 2.5 (H) 1.7 - 2.3 11/17/2019 DTL mg/dL 12:21 PM CDT Specimen Anatomical Collection Method Collection Time Receive d Time (Source) Location / / Volume Laterality Blood (Blood, 11/17/2019 9:29 AM 11/17/19 9:49 Venous) CDT AM CDT Joce Bailey M.D. LAB BLOOD ADD-ON Performing Organization Address City/[facility]/ZIP Code Phon e Number [facility] - 200 [place], [place] [address] [place] [address] Ferritin (11/17/2019 9:29 AM CDT) athologist [facility] Ferritin, S 84 [phone] - [phone] 11/17/2019 DTL mcg/L 12:13 PM CDT Specimen Anatomical Collection Method Collection Time Receive d Time (Source) Location / / Volume Laterality Blood (Blood, 11/17/2019 9:29 AM 11/17/19 20 9:49 Venous) CDT AM CDT Joce Bailey M.D. LAB BLOOD ADD-ON Performing Organization Address City/[facility]/ZIP [facility] Phon e Number [facility] - [address] [place], [place] [address] [place] [address] (ABNORMAL) Cystatin C with Estimated GFR, S (11/17/2019 9:29 AM CDT) athologist Signature eGFR by 13 >60 11/17/2019 [...] City/State/ZIP Code Phon e Number [facility] - [facility] [place], [place] [address] [place] [address] Laboratories-[facility] 200 [...] 11/17/2019 DTL Black/ mL/min/BSA 11:37 AM CDT Kyrgyz Comment: ----ADDITIONAL INFORMATION---- Estimated GFR calculated [...] City/State/ZIP Code Phon e Number [facility] - [address] [place] [address] [facility] [place] [address] Laboratories-[facility] 200 [place] Mononucleosis RNA/DNA (11/17/2019 9:28 AM CDT) Analysis Performed At Patho logist Time Signature [place] RNA/DNA Collected DEFAULT 11/17/2019 HSS EDTA x 2 9:28 AM CDT [place] RNA/DNA Collected DEFAULT 11/17/2019 HSS NaHep 9:28 AM CDT Specimen Anatomical Collection Method Collection Time Receive d Time (Source) Location / / Volume Laterality Blood (Blood, 11/17/2019 9:28 AM 11/17/19 9:28 Venous) CDT AM CDT Narrative [facility] - [facility] - 11/17/2019 9:28 AM CDT Specimen Information: Specimen ID: [id number] Specimen Type: Blood Specimen Collection Start Date: 11/17/19 ??9:28 AM Specimen Received Date: 11/17/2019 ??9:2 8 AM Specimen ID: [id number] Specimen Type: Blood Specimen Collection Start Date: 11/17/19 ??9:28 AM Specimen Received Date: 11/17/2019 ??9:2 8 AM Specimen ID: [id number] Specimen Type: Blood Specimen Collection Start Date: 11/17/19 ??9:28 AM Specimen Received Date: 11/17/2019 ??9:2 8 AM Angélica Granger P.A.-C. LAB BLOOD NON ADD-ON Performing Organization Address City/[facility]/ZIP Code Phon e Number [facility] - [address] Organ Liver TX (11/17/2019 9:28 AM CDT) Analysis Performed At Patho logist Time Signature Organ Liver [place] Collected DEFAULT 11/17/2019 [facility] 9:28 AM CDT Specimen Anatomical Collection Method Collection Time Receive d Time (Source) Location / / Volume Laterality Blood (Blood, 11/17/2019 9:28 AM 11/17/19 9:28 Venous) CDT AM CDT Angélica Granger P.A.-C. LAB BLOOD NON ADD-ON Performing Organization Address [facility] Phon e Number [facility] - 200 [place] [address] [place] [address] Prothrombin Time (PT) (11/17/2019 9:28 AM [...] P.A.-C. LAB BLOOD ADD-ON Performing Organization Address City/[facility]/ZIP Code Phon e Number [facility] - [address] [place], [place] [address] [facility] [place] [address] Laboratories-[facility] 200 [facility] (ABNORMAL) Lipid Panel (11/17/2019 9:28 AM [...] City/State/ZIP Code Phon e Number [facility] - [address] [place], [place] [address] [facility] [place] [address] Laboratories-[facility] 200 [facility] Bilirubin, Direct (11/17/2019 9:28 AM CDT) athologist Signature Bilirubin, <0.2 0.0 - 0.3 11/17/2019 DTL Direct, S mg/dL 11:56 AM CDT Specimen Anatomical Collection Method Collection Time Receive d Time (Source) Location / / Volume Laterality Blood (Blood, 11/17/2019 9:28 AM 11/17/19 20 9:49 Venous) CDT AM CDT Angélica Granger P.A.-C. LAB BLOOD ADD-ON Performing Organization Address City/[facility] Phon e Number [facility] - [address] (ABNORMAL) Iron and Total Iron-Binding Capacity [...] M.D. LAB BLOOD ADD-ON Performing Organization Address City/[facility] Phon e Number [facility] - [address] documented in this encounter Visit Diagnoses Diagnosis Chronic Kidney Disease Stage 4 Glomerula r Filtration Rate 15-29 (HCC) Transplant Liver (HCC) Medication Therapy Assisted Not Anticoa gulant Chronic Kidney Disease Osteoporosis Screening Examination Prostate Cancer documented in this encounter Additional Health Concerns Assessment Noted Time PHQ-9 Depression Total Score: 5 03/02/2019 10:51 AM CD T documented as of this encounter Care Teams Windsurfing Instructor Relationship Specialty Start Date End Date Elsewhere, Pcp PCP - General Family Medicine 07/29/17 documented as of this encounter
--- OUTSIDE RECORDS SUMMARY | 2022-05-17 18:55 | XMS_ITS | Encounter Summary ---
:[address] [facility] Address [address] [place] [address] Care Team Providers Name Role Phone Elsewhere, Pcp Primary Care Provider Unavailable Reason for Visit Reason Comments Med Refill Encounter Details Date Type Department Care Team Description 11/21/2019 [facility]ill [facility] M.D[facility] 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 [address] [place] [phone] 05/23/2022 Clinical Admitting/Central Communication Scheduling 05/27/2022 Comprehensive Visit Orthopedic Surgery Markus Sams M.D., Ph.D. [address] [place] [phone] 05/29/2022 Office Visit Otorhinolaryngology Dex Matta, RAMONA, C.N.P., M.S.N. [address] [place] [phone] 05/29/2022 Office Visit Otorhinolaryngology Nadeem Maradiaga, P.Murtaza.-C., M.S. [address] [place] [phone] 05/31/2022 Appointment Radiology Guilherme Matt MPAS, PMaryanne., M.S. [address] [place] [address] [phone] 06/05/2022 Appointment Laboratory Medicine Angélica Granger P.A.-C. [address] [place] [phone] 06/19/2022 Appointment Laboratory Medicine Angélica Granger P.A.-C. [address] [place] [phone] 07/03/2022 Appointment Laboratory Medicine Angélica Granger P.A.-C. [address] [place] [phone] 07/17/2022 Appointment Laboratory Medicine Angélica Granger P.A.-C. [address] [place] [phone] 07/31/2022 Appointment Laboratory Medicine Angélica Granger P.A.-C. [address] [place] [phone] 08/14/2022 Appointment Laboratory Angélica Royal P.A.-C. [address] [place] [phone] 08/28/2022 Appointment Laboratory Angélica Royal P.A.-C. [address] [place] [phone] documented as of this encounter Visit Diagnoses Diagnosis Transplant Liver (HCC) documented in this encounter Additional Health Concerns Assessment Noted Time PHQ-9 Depression Total Score: 5 03/02/2019 10:51 AM CD T documented as of this encounter Care Teams Electrical Helper Relationship Specialty Start Date End Date Elsewhere, Pcp PCP - General Family Medicine 07/29/17 documented as of this encounter
--- OUTSIDE RECORDS SUMMARY | 2022-05-17 18:55 | XMS_ITS | Encounter Summary ---
:[address] [facility] Address [address] [place] [address] Care Team Providers Name Role Phone Elsewhere, Pcp Primary Care Provider Unavailable Reason for Visit Transplant (Routine) - Closed Specialty Diagnoses / Procedures Referred By Contact Refer red To Contact Transplant Surgery / Diagnoses Transplant Liver (HCC) Medication Therapy Roll Over Press Operator Not Anticoagulant Angélica Granger, Lorena [facility] Transplant P.A.-C. [address] [place] [phone] Referral ID Status Reason Start Date Expiration Date Visits Requ ested Visits Authorized [id number] Closed 06/21/2019 06/20/2020 1 1 Encounter Details Date Type Department Care Team Description 11/23/2019 Comprehensive Visit Department of Winifred Llamas S kin Uncertain Behavior (Primary Dx); Dermatology in [place], Transplant Liver (HCC); Sada Santamaria Medication Therapy Penitentiary Not Anticoa gulant; [place] [address] Keratosis Seborrheic; [address] [place] [address] Keratosis Actinic; [place] [address] Angioma Rangel; [phone] Dermatoheliosis Social History Tobacco Use Types Packs/Day [...] at Date Recorded 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 - 11/23/2019 8:00 AM CDT Shave biopy was performed as ordered and outlined by Dr. Janette Llamas ([phone]) in the clinical note dated with today's [...] vertex Patient seen and discussed with supervising network relations consultant, Tres Hill MD, who evaluated thepatient [...] trunk and extremities. Noted on the right anabaptism is a scaly and gritty plaque of [...] the patient by letter. Patient given pamphlet [id number]. #4 Actinic keratoses times 1 Given the [...] Laboratory Medicine Angélica Granger P.A.-C. [address] [place] [phone] 05/23/2022 Clinical Admitting/Central Communication Scheduling 05/27/2022 Comprehensive Visit Orthopedic Surgery Markus Sams M.D., Ph.D. [address] [place] [phone] 05/29/2022 Office Visit Otorhinolaryngology Dex Matta APRN, C.N.P., M.S.N. [address] [place] [phone] 05/29/2022 Office Visit Otorhinolaryngology Nadeem Maradiaga P.A.-C., M.S. [address] [place] [phone] 05/31/2022 Appointment Radiology Guilherme Matt MPAS, Edmundo, M.S. [address] [place] [phone] 06/05/2022 Appointment Laboratory Medicine Angélica Granger P.A.-C. [address] [place] [phone] 06/19/2022 Appointment Laboratory Medicine Angélica Granger P.A.-C. [address] [place] [phone] 07/03/2022 Appointment Laboratory Medicine Angélica Granger P.A.-C. [address] [place] [phone] 07/17/2022 Appointment Laboratory Medicine Angélica Granger P.A.-C. [address] [place] [phone] 07/31/2022 Appointment Laboratory Medicine Angélica Granger P.A.-C. [address] [place] [phone] 08/14/2022 Appointment Laboratory Medicine Angélica Granger P.A.-C. [address] [place] [phone] 08/28/2022 Appointment Laboratory Medicine Angélica Granger P.A.-C. [address] [place] [phone] documented as of this encounter Procedures Procedure Name Priority Date/Time Associated Diagnosis Comme [facility] DERMATOPATHOLOGY Routine 11/23/2019 8:22 AM Transplant L iver (HCC) Results for this CDT Medication Therapy procedure are in Penitentiary Not the results Anticoagulant section. documented in this encounter Results Dermatopathology (11/23/2019 8:22 AM CDT) Component Value Ref Test Analysis Performed At [facility] Range Method Time Signature 11/25/2019 [facility] 11:00 AM CDT Participated in Jessika Moctezuma 11/25/2019 [facility] the Interpretation Ramiro, 11:00 AM Sada-Patholog CDT y Fellow Report Leonid Rene 11/25/2019 [facility] electronically Jaimee, 11:00 AM signed by Sada MUNOZT Gross Description Received in formalin labeled with the patient's n gonzalez, 11/25/2019 P[facility] medical record number, and vertex scalp is a 0.6 x 0.6 x 11:00 AM 0.1 cm pale grady skin shave biopsy. ??Centrally located on CDT the skin surface is a slightly raised 0.3 x 0.2 cm grady-red, ulcerated lesion with irregular borders. ??The specimen is bisected and submitted entirely in cassette A1. Grossed by MAHOGANY. Interpretation FINAL DIAGNOSIS 11/25/2019 [facility] A. ??Vertex scalp, Skin shave biopsy: [...] [facility] - [address] [place], [place] [address] [place] [address] Laboratories-[facility] [address] documented in this encounter Visit Diagnoses Diagnosis Tumor Skin Uncertain Behavior - Primary Transplant Liver (HCC) Medication Therapy Roll Over Press Operator Not Anticoa gulant Keratosis Seborrheic Keratosis Actinic Angioma Rangel Dermatoheliosis documented in this encounter Additional Health Concerns Assessment Noted Time PHQ-9 Depression Total Score: 3 11/22/2019 7:34 AM CDT documented as of this encounter Care Teams Cocoa Roaster Relationship Specialty Start Date End Date Elsewhere, Pcp PCP - General Family Medicine 07/29/17 documented as of this encounter
--- OUTSIDE RECORDS SUMMARY | 2022-05-17 18:55 | XMS_ITS | Encounter Summary ---
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 - 11/17/2019 4:21 PM CDT I reviewed this case with Dr. oJce Bailey. I did not meet Mr. Singh [...] Laboratory Medicine Angélica Granger P.A.-C. [address] [place] [phone] 05/23/2022 Clinical Admitting/Central Communication Scheduling 05/27/2022 Comprehensive Visit Orthopedic Surgery Markus Sams M.D., Ph.D. [address] [place] [phone] 05/29/2022 Office Visit Otorhinolaryngology [place] Matta APRN, C.N.P., M.S.N. [address] [place] [phone] 05/29/2022 Office Visit Otorhinolaryngology Nadeem Maradiaga, Edmundo, M.S. [address] [place] [phone] 05/31/2022 Appointment Radiology Guilherme Matt, RASTA, Edmundo, M.S. [address] [place] [phone] 06/05/2022 Appointment Laboratory Medicine Angélica Granger P.A.-C. [address] [place] [phone] 06/19/2022 Appointment Laboratory Medicine Angélica Granger P.A.-C. [address] [place] [phone] 07/03/2022 Appointment Laboratory Medicine Angélica Granger P.A.-C. [address] [place] [phone] 07/17/2022 Appointment Laboratory Medicine Angélica Granger P.A.-C. [address] [place] [phone] 07/31/2022 Appointment Laboratory Medicine Angélica Granger P.A.-C. [address] [place] [phone] 08/14/2022 Appointment Laboratory Medicine Angélica Granger P.A.-C. [address] [place] [phone] 08/28/2022 Appointment Laboratory Medicine Angélica Granger P.A.-C. [address] [place] [phone] documented as of this encounter Visit Diagnoses Not on filedocumented in this encounter Additional Health Concerns Assessment Noted Time PHQ-9 Depression Total Score: 5 03/02/2019 10:51 AM CD T documented as of this encounter Care Teams Heliarc Welder Relationship Specialty Start Date End Date Elsewhere, Pcp PCP - General Family Medicine 07/29/17 documented as of this encounter
--- OUTSIDE RECORDS SUMMARY | 2022-05-17 18:55 | XMS_ITS | Encounter Summary ---
:1955 Author Organization [facility] Address [address] [place] [address] Care Team Providers Name Role Phone Elsewhere, Pcp Primary Care Provider Unavailable Reason for Referral MRI/CAT/PET Scan (Routine) - Closed Specialty Diagnoses / Procedures Referred By Contact Refer red To Contact Radiology Diagnoses Cough Unspecified Type Angélica Granger P.A.-C. [facility] Procedures CT Chest without IV Contrast [address] [place] [phone] Referral ID Status Reason Start Date Expiration Date Visits Requ ested Visits Authorized [id number] Closed 11/22/2019 11/21/2020 1 1 Encounter Details Date Type Department Care Team Description 11/22/2019 Orders Only [facility] Michele Granger Cough for Transplantation and Edmundo Clinical Regeneration in [address] [place] [address] [place] [phone] [place] [address] [phone] Social History Tobacco Use Types Packs/Day Years [...] Date Recorded 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 [address] [place] [phone] 05/29/2022 Office Visit Otorhinolaryngology Dex Matta APRN, C.N.P., M.S.N. [address] [place] [phone] 05/29/2022 Office Visit Otorhinolaryngology Nadeem Maradiaga, Jennifer., M.S. [address] [place] [phone] 05/31/2022 Appointment Radiology Guilherme Matt MPAS, Edmundo, M.S. [address] [place] [phone] 06/05/2022 Appointment Laboratory Medicine Angélica Granger P.A.-C. [address] [place] [phone] 06/19/2022 Appointment Laboratory Medicine Angélica Granger P.A.-C. [address] [place] [phone] 07/03/2022 Appointment Laboratory Medicine Angélica Granger P.A.-C. [address] [place] [phone] 07/17/2022 Appointment Laboratory Medicine Angélica Granger P.A.-C. [address] [place] [phone] 07/31/2022 Appointment Laboratory Medicine Angélica Granger P.A.-C. [address] [place] [phone] 08/14/2022 Appointment Laboratory Medicine Angélica Granger P.A.-C. [address] [place] [phone] 08/28/2022 Appointment Laboratory Medicine Angélica Granger P.A.-C. [address] [place] [phone] documented as of this encounter Results CT [...] documented as of this encounter Care Teams Radiology Tech Relationship Specialty Start Date End Date Elsewhere, Pcp PCP - General Family Medicine 07/29/17 documented as of this encounter
--- OUTSIDE RECORDS SUMMARY | 2022-05-17 18:55 | XMS_ITS | Encounter Summary ---
:1955 Author Organization [facility] Address [address] [place] [address] Care Team Providers Name Role Phone Elsewhere, Pcp Primary Care Provider Unavailable Encounter Details Date Type Department Care Team Description 11/19/2019 Clinical Communication Angélica Ching [facility] [place] [facility], P.A.-C. 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 [address] [place] [phone] 05/23/2022 Clinical Admitting/Central Communication Scheduling 05/27/2022 Comprehensive Visit Orthopedic Surgery Markus Sams M.D., Ph.D. [address] [place] [phone] 05/29/2022 Office Visit Otorhinolaryngology Dex Matta APRN CDemetriusNFabrice., M.S.N. [address] [place] [phone] 05/29/2022 Office Visit Otorhinolaryngology Nadeem Maradiaga, Jennifer., M.S. [address] [place] [phone] 05/31/2022 Appointment Radiology Guilherme Matt MPAS, Edmundo, M.S. [address] [place] [phone] 06/05/2022 Appointment Laboratory Medicine Angélica Granger P.A.-C. [address] [place] [phone] 06/19/2022 Appointment Laboratory Medicine Angélica Granger P.A.-C. [address] [place] [phone] 07/03/2022 Appointment Laboratory Medicine Angélica Granger P.A.-C. [address] [place] [phone] 07/17/2022 Appointment Laboratory Medicine Angélica Granger P.A.-C. [address] [place] [phone] 07/31/2022 Appointment Laboratory Medicine Angélica Granger P.A.-C. [address] [place] [phone] 08/14/2022 Appointment Laboratory Medicine Angélica Granger P.A.-C. [address] [place] [phone] 08/28/2022 Appointment Laboratory Medicine Angélica Granger P.A.-C. [address] [place] [phone] documented as of this encounter Visit Diagnoses Not on filedocumented in this encounter Additional Health Concerns Assessment Noted Time PHQ-9 Depression Total Score: 5 03/02/2019 10:51 AM CD T documented as of this encounter Care Teams Radio Frequency Engineer Relationship Specialty Start Date End Date Elsewhere, Pcp PCP - General Family Medicine 07/29/17 documented as of this encounter
--- OUTSIDE RECORDS SUMMARY | 2022-05-17 18:55 | XMS_ITS | Encounter Summary ---
:1955 Author Organization [facility] Address [address] [place] [address] Care Team Providers Name Role Phone Elsewhere, Pcp Primary Care Provider Unavailable Encounter Details Date Type Department Care Team Description 11/17/2019 Hospital Encounter Department of [facility], Chronic Kidney Disease Stage 4 Glomerular Filtration Rate 15-29 (HCC); Laboratory Medicine Sada Hobson Transplant Liver (HCC); and Pathology, [address] [place] [address] Medication Therapy Sales And Marketing Administrator [facility] [phone] [place] [phone] [address] [facility] (Work) [place], [place] [phone] (Fax) [phone] Social History Tobacco Use Types Packs/Day Years [...] Date Recorded 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 [address] [place] [phone] 05/23/2022 Clinical Admitting/Central Communication Scheduling 05/27/2022 Comprehensive Visit Orthopedic Surgery Markus Sams M.D., Ph.D. [address] [place] [phone] 05/29/2022 Office Visit Otorhinolaryngology Dex Matta APRN, C.N.P., M.S.N. [address] [place] [phone] 05/29/2022 Office Visit Otorhinolaryngology Nadeem Maradiaga, P.A.-C., M.S. [address] [place] [phone] 05/31/2022 Appointment Radiology Guilherme Matt, RASTA, P.A.-C., M.S. [address] [place] [phone] 06/05/2022 Appointment Laboratory Medicine Angélica Granger P.A.-C. [address] [place] [phone] 06/19/2022 Appointment Laboratory Medicine Angélica Granger P.A.-C. [address] [place] [phone] 07/03/2022 Appointment Laboratory Medicine Angélica Granger P.A.-C. [address] [place] [phone] 07/17/2022 Appointment Laboratory Medicine Angélica Granger P.A.-C. [address] [place] [phone] 07/31/2022 Appointment Laboratory Medicine Angélica Granger P.A.-C. [address] [place] [phone] 08/14/2022 Appointment Laboratory Medicine Angélica Granger P.A.-C. [address] [place] [phone] 08/28/2022 Appointment Laboratory Medicine Angélica Granger P.A.-C. [address] [place] [address] [phone] documented as of this encounter Procedures Procedure Name Priority Date/Time Associated Comments Diagnosis MICROSCOPIC AUTOMATED Routine 11/17/2019 9:50 AM Results for this CDT procedure are i n the results section. ALBUMIN, RANDOM, U Routine 11/17/2019 9:50 AM Chronic Kidney R esults for this CDT Disease Stage 4 procedure ar e in Glomerular the results Filtration Rate section. 15 (HCC) URINALYSIS WITH Routine 11/17/2019 9:50 AM Chronic Kidney Resu lts for this MICROSCOPIC CDT Disease Stage 4 procedure ar e in Glomerular the results Filtration Rate section. 15 (HCC) documented in this encounter Results Microscopic Automated (11/17/2019 9:50 AM CDT) P athologist Signature Microscopy Normal 11/17/2019 DAVE 10:58 AM CDT Crystals SEE COMMENT 11/17/2019 DAVE 10:58 AM CDT Comment: Calcium Oxalate crystals presen t Specimen Anatomical Collection Method Collection Time Receive d Time (Source) Location / / Volume Laterality Urine 11/17/2019 9:50 AM 0 9:50 CDT AM CDT Joce Bailey M.D. LAB URINE ORDERABLES Performing Organization Address [facility]/ZIP Code Phon e Number [facility] - [address] [place], [place] [address] [place] [address] [address] (ABNORMAL) Albumin, Random, Urine (11/17/2019 9:50 AM CDT) P athologist Signature Albumin, 202.6 mg/L 11/17/2019 DAVE Random, U 10:38 AM CDT Comment: ----ADDITIONAL INFORMATION---- This test has been modified from the man ufacturer's instructions. Its performance characteri stics were determined by [facility] in a manner co nsistent with [...] M.D. LAB URINE ORDERABLES Performing Organization Address City/[facility]/ZIP Code Phon e Number [facility] - [address] [place], [place] [address] [facility] [address] Laboratories-[address] (ABNORMAL) Urinalysis with Microscopic: Urine, Voided [...] [facility] in a manner co nsistent with [...] MEDICAL CENTER LABORATORIES - [address] [place], [place] [address] [facility] [place] [address] Laboratories-[facility] [address] documented in this encounter Visit Diagnoses Diagnosis Chronic Kidney Disease Stage 4 Glomerula r Filtration Rate 15-29 (HCC) Transplant Liver (HCC) Medication Therapy Sales And Marketing Administrator Not Anticoa gulant documented in this encounter Additional Health Concerns Assessment Noted Time PHQ-9 Depression Total Score: 5 03/02/2019 10:51 AM CD T documented as of this encounter Care Teams Hardware Test Engineer Relationship Specialty Start Date End Date Elsewhere, Pcp PCP - General Family Medicine 07/29/17 documented as of this encounter
--- OUTSIDE RECORDS SUMMARY | 2022-05-17 18:55 | XMS_ITS | Encounter Summary ---
:1955 Author Organization [facility] Address [address] [place] [address] Care Team Providers Name Role Phone Elsewhere, Pcp Primary Care Provider Unavailable Reason for Referral Outpatient (Routine) - Closed Specialty Diagnoses / Procedures Referred By Contact Refer red To Contact Pulmonary Medicine Diagnoses Transplant Liver (HCC) Angélica Granger [facility] P.A.-CDemetrius [address] [place] [phone] Referral ID Status Reason Start Date Expiration Date Visits V isits Requested Authorized [id number] Closed Specialty 11/23/2019 11/22/2020 1 1 Services Required Scheduling Instructions With Dr. Simon Reason for Visit Transplant (Routine) - Closed Specialty Diagnoses / Procedures Referred By Contact Refer red To Contact Transplant Surgery / Diagnoses Transplant Liver (HCC) Medication Therapy Straight Line Press Setter Not Anticoagulant Angélica Granger [facility] Transplant P.A.-C. [address] [place] [phone] Referral ID Status Reason Start Date Expiration Date Visits Requ ested Visits Authorized [id number] Closed 06/21/2019 06/20/2020 1 1 Encounter Details Date Type Department Care Team Description 11/22/2019 Office Visit Angélica Ching After care Transplant Liver (HCC) (Primary Dx); [facility] Yanely SternC. 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 - 11/22/2019 3:00 PM CDT SUBJECTIVE CHIEF COMPLAINT/REASON FOR VISIT Annual eval following liver transplantation. Supervised by Dr. Gonzalez. HISTORY OF PRESENT ILLNESS Mr. Sinhg is a pleasant 64-year-old gentleman who is [...] Angélica Granger P.A.-C. CT CT Job ID: [id number] documented in this encounter H&P Notes Angélica [...] Angélica Granger P.A.-C. CT CT Job ID: [id number] documented in this encounter Plan of Treatment Upcoming Encounters Date Type Specialty Care Team Description 05/22/2022 Appointment Laboratory Medicine Angélica Granger P.A.-C. [address] [place] [phone] 05/23/2022 Clinical Admitting/Central Communication Scheduling 05/27/2022 Comprehensive Visit Orthopedic Surgery Markus Sams M.D., Ph.D. [address] [place] [phone] 05/29/2022 Office Visit Otorhinolaryngology Dex Matta APRN, C.N.P., M.S.N. [address] [place] [phone] 05/29/2022 Office Visit Otorhinolaryngology Nadeem Maradiaga P.A.-C., M.S. [address] [place] [address] [phone] 05/31/2022 Appointment Radiology Guilherme Matt MPAS, P.A.-C., M.S. [address] [place] [phone] 06/05/2022 Appointment Laboratory Medicine Angélica Granger P.A.-C. [address] [place] [phone] 06/19/2022 Appointment Laboratory Medicine Angélica Granger P.A.-C. [address] [place] [phone] 07/03/2022 Appointment Laboratory Medicine Angélica Granger P.A.-C. [address] [place] [phone] 07/17/2022 Appointment Laboratory Medicine Angélica Granger P.A.-C. [address] [place] [phone] 07/31/2022 Appointment Laboratory Medicine Angélica Granger P.A.-C. [address] [place] [phone] 08/14/2022 Appointment Laboratory Medicine Angélica rGanger P.A.-C. [address] [place] [phone] 08/28/2022 Appointment Laboratory Medicine Angélica Granger P.A.-C. [address] [place] [phone] Scheduled Referrals Name Type Priority Associated Diagnoses Order S chedule Pulmonary Medicine Outpatient Referral Routine Transplant Live r Expected: - General consult (HCC) 11/23/2019 (clinic) (Approximate), Expires: 11/22/2022 documented as of this encounter Visit Diagnoses Diagnosis Aftercare Transplant Liver (HCC) - Prima ry Transplant Liver (HCC) Medication Therapy Half-Way Not Anticoa gulant documented in this encounter Additional Health Concerns Assessment Noted Time PHQ-9 Depression Total Score: 3 11/22/2019 7:34 AM CDT documented as of this encounter Care Teams Workforce Specialist Relationship Specialty Start Date End Date Elsewhere, Pcp PCP - General Family Medicine 07/29/17 documented as of this encounter
--- OUTSIDE RECORDS SUMMARY | 2022-05-17 18:55 | XMS_ITS | Encounter Summary ---
:1955 Author Organization [facility] Address [address] [place] [address] Care Team Providers Name Role Phone Elsewhere, Pcp Primary Care Provider Unavailable Reason for Visit Transplant (Routine) - Closed Specialty Diagnoses / Procedures Referred By Contact Refer red To Contact Transplant Surgery / Diagnoses Transplant Liver (HCC) Medication Therapy Drama Therapist Not Anticoagulant Angélica Granger [facility] Transplant P.A.-C. [address] [place] [phone] Referral ID Status Reason Start Date Expiration Date Visits Requ ested Visits Authorized [id number] Closed 06/21/2019 06/20/2020 1 1 Encounter Details Date Type Department Care Team Description 11/22/2019 Office Visit Angélica Ching, P.A.-C. [address] [place] [address] [phone] Bipolar In Remission (Full) (HCC) (Prima ry Dx); Zofia Claros M.D. 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 - 11/22/2019 8:30 AM CDT Bruce Singh [address] [facility] [id number] y.o. History of Present Illness: I interviewed the patient and reviewed the [facility] record at the time of this [...] / PLAN #1 Bipolar In Remission (Full) ([facility]) #2 Moderate Or Severe Use Disorder (Dependence) Alcohol Remission (HCC) #3 Transplant Liver (HCC) #4 Medication Therapy Drama Therapist Not Anticoagulant Plan: He will continue on [...] Laboratory Medicine Angélica Granger P.A.-C. [address] [place] [address] [phone] 05/23/2022 Clinical Admitting/Central Communication Scheduling 05/27/2022 Comprehensive Visit Orthopedic Surgery Markus Sams M.D., Ph.D. [address] [place] [phone] 05/29/2022 Office Visit Otorhinolaryngology Dex Matta APRN, C.N.P., M.S.N. [address] [place] [phone] 05/29/2022 Office Visit Otorhinolaryngology Nadeem Maradiaga, PEdgar.-Arley., M.S. [address] [place] [phone] 05/31/2022 Appointment Radiology Guilherme Matt MPAS, PEdgar.Marie., M.S. [address] [place] [address] [phone] 06/05/2022 Appointment Laboratory Medicine Angélica Granger P.A.-C. [address] [place] [address] [phone] 06/19/2022 Appointment Laboratory Medicine Angélica Granger P.A.-C. [address] [place] [phone] 07/03/2022 Appointment Laboratory Medicine Angélica Granger P.A.-C. [address] [place] [phone] 07/17/2022 Appointment Laboratory Medicine Angélica Granger P.A.-C. [address] [place] [phone] 07/31/2022 Appointment Laboratory Medicine Angélica Granger P.A.-C. [address] [place] [address] [phone] 08/14/2022 Appointment Laboratory Medicine Angélica Granger P.A.-C. [address] [place] [phone] 08/28/2022 Appointment Laboratory Medicine Angélica Granger P.A.-C. [address] [place] [phone] documented as of this encounter Visit Diagnoses Diagnosis Bipolar In Remission (Full) (HCC) - Prim marimar Moderate Or Severe Use Disorder (Depende nce) Alcohol Remission (HCC) Transplant Liver (HCC) Medication Therapy Drama Therapist Not Anticoa gulant documented in this encounter Additional Health Concerns Assessment Noted Time PHQ-9 Depression Total Score: 3 11/22/2019 7:34 AM CDT documented as of this encounter Care Teams Echo Vasc Tech Relationship Specialty Start Date End Date Elsewhere, Pcp PCP - General Family Medicine 07/29/17 documented as of this encounter
--- OUTSIDE RECORDS SUMMARY | 2022-05-17 18:55 | XMS_ITS | Encounter Summary ---
:1955 Author Organization [facility] Address [address] [place] [address] Care Team Providers Name Role Phone Elsewhere, Pcp Primary Care Provider Unavailable Reason for Visit Reason Comments Annual Exam Transplant (Routine) - Closed Specialty Diagnoses / Procedures Referred By Contact Refer red To Contact Transplant Surgery / Diagnoses Transplant Liver (HCC) Medication Therapy Veneer Glue Jointer Feedback Not Anticoagulant Angélica Granger [facility] Transplant P.A.-C. [address] [place] [phone] Referral ID Status Reason Start Date Expiration Date Visits Requ ested Visits Authorized [id number] Closed 06/21/2019 06/20/2020 1 1 Encounter Details Date Type Department Care Team Description 11/22/2019 Nurse Only Curt Rene [facility] Angélica Caldwell, P.A.-C. [address] [place] [address] [phone] Annual Exam for Transplantation and Blanca Canales R.N. 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 Bruce Singh has labs drawn at [facility]. ---- Bruce Singh's local provider is Dr. Cole at [facility]. ---- Reviewed current test results, vital signs, [...] Laboratory Medicine Angélica Granger P.A.-C. [address] [place] [phone] 05/23/2022 Clinical Admitting/Central Communication Scheduling 05/27/2022 Comprehensive Visit Orthopedic Surgery Markus Sams M.D., Ph.D. [address] [place] [phone] 05/29/2022 Office Visit Otorhinolaryngology Dex Matta APRN, C.N.P., M.S.N. [address] [place] [phone] 05/29/2022 Office Visit Otorhinolaryngology Nadeem Maradiaga, Edmundo, M.S. [address] [place] [address] [phone] 05/31/2022 Appointment Radiology Guilherme Matt MPAS, P.A.-C., M.S. [address] [place] [phone] 06/05/2022 Appointment Laboratory Medicine Angélica Granger P.A.-C. [address] [place] [phone] 06/19/2022 Appointment Laboratory Medicine Angélica Granger P.A.-C. [address] [place] [phone] 07/03/2022 Appointment Laboratory Medicine Angélica Granger P.A.-C. [address] [place] [phone] 07/17/2022 Appointment Laboratory Medicine Angélica Granger P.A.-C. [address] [place] [phone] 07/31/2022 Appointment Laboratory Medicine Angélica Granger P.A.-C. [address] [place] [phone] 08/14/2022 Appointment Laboratory Medicine Angélica Granger P.A.-C. [address] [place] [phone] 08/28/2022 Appointment Laboratory Medicine Angélica Granger P.A.-C. [address] [place] [phone] documented as of this encounter Visit Diagnoses Diagnosis Transplant Liver (HCC) Medication Therapy Veneer Glue Jointer Feedback Not Anticoa gulant documented in this encounter Additional Health Concerns Assessment Noted Time PHQ-9 Depression Total Score: 3 11/22/2019 7:34 AM CDT documented as of this encounter Care Teams Montessori Teacher Relationship Specialty Start Date End Date Elsewhere, Pcp PCP - General Family Medicine 07/29/17 documented as of this encounter
--- OUTSIDE RECORDS SUMMARY | 2022-05-17 18:55 | XMS_ITS | Encounter Summary ---
:1955 Author Organization [facility] Address [address] [place] [address] Care Team Providers Name Role Phone Elsewhere, Pcp Primary Care Provider Unavailable Encounter Details Date Type Department Care Team Description 11/22/2019 Hospital Encounter Department of Angélica Granger ant Liver (HCC); Radiology, Fletcher Edmundo Stern Medication Therapy Skilled Nursing Not [facility] in [address] [place] [address] [place] [phone] [place], [place] [phone] (Work) [phone] Social History Tobacco Use Types Packs/Day Years [...] Date Recorded 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 [address] [place] [phone] 05/23/2022 Clinical Admitting/Central Communication Scheduling 05/27/2022 Comprehensive Visit Orthopedic Surgery Markus Sams M.D., Ph.D. [address] [place] [phone] 05/29/2022 Office Visit Otorhinolaryngology Dex Matta APRN, C.N.P., M.S.N. [address] [place] [phone] 05/29/2022 Office Visit Otorhinolaryngology Nadeem Maradiaga, P.A.-C., M.S. [address] [place] [phone] 05/31/2022 Appointment Radiology Guilherme Matt MPAS, P.A.-Arley., M.S. [address] [place] [phone] 06/05/2022 Appointment Laboratory Medicine Angélica Granger P.A.-C. [address] [place] [phone] 06/19/2022 Appointment Laboratory Medicine Angélica Granger P.A.-C. [address] [place] [phone] 07/03/2022 Appointment Laboratory Medicine Angélica Granger P.A.-C. [address] [place] [phone] 07/17/2022 Appointment Laboratory Medicine Angélica Granger P.A.-C. [address] [place] [phone] 07/31/2022 Appointment Laboratory Medicine Angélica Granger P.A.-C. [address] [place] [phone] 08/14/2022 Appointment Laboratory Medicine Angélica Granger P.A.-C. [address] [place] [phone] 08/28/2022 Appointment Laboratory Angélica Royal P.A.-C. [address] [place] [phone] documented as of this encounter Procedures Procedure Name Priority Date/Time Associated Diagnosis Comme nts DX CHEST AP OR RAD - Routine 11/22/2019 7:19 Transplant Liver Resul ts for this PA AND LATERAL 2 (most inpatients AM CDT (HCC) procedure are in VIEWS and all Medication Therapy the resul ts outpatients) Mental Health Advanced Practice Nurse Not section. Anticoagulant documented in this encounter [...] Diagnoses Diagnosis Transplant Liver (HCC) Medication Therapy Mental Health Advanced Practice Nurse Not Anticoa gulant documented in this encounter Additional Health Concerns Assessment Noted Time PHQ-9 Depression Total Score: 3 11/22/2019 7:34 AM CDT documented as of this encounter Care Teams Reference Archivist Relationship Specialty Start Date End Date Elsewhere, Pcp PCP - General Family Medicine 07/29/17 documented as of this encounter
--- OUTSIDE RECORDS SUMMARY | 2022-05-17 18:55 | XMS_ITS | Encounter Summary ---
:1955 Author Organization [facility] Address [address] [place] [address] Care Team Providers Name Role Phone Elsewhere, Pcp Primary Care Provider Unavailable Encounter Details Date Type Department Care Team Description 11/23/2019 Hospital Encounter Department of Angélica Granger ant Liver (HCC); Laboratory Medicine J PDemetriusADurgaC. 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 Medication Therapy Cloud Software Engineer Not Anticoagulant tacrolimus (PROGRAF) 0.5 Take 2 capsules (1 360 capsule 3 07/20/2020 mg capsuleIndications: mg total) by mouth Transplant Liver ([facility]), 2 (two) times a Medication Therapy [...] Laboratory Medicine Angélica Granger P.A.-C. [address] [place] [phone] 05/23/2022 Clinical Admitting/Central Communication Scheduling 05/27/2022 Comprehensive Visit Orthopedic Surgery Markus Sams M.D., Ph.D. [address] [place] [phone] 05/29/2022 Office Visit Otorhinolaryngology Dex Matta APRN, C.N.P., M.S.N. [address] [place] [phone] 05/29/2022 Office Visit Otorhinolaryngology Nadeem Maradiaga P.A.-C., M.S. [address] [place] [address] [phone] 05/31/2022 Appointment Radiology Guilherme Matt MPAS, P.A.-C., M.S. [address] [place] [phone] 06/05/2022 Appointment Laboratory Medicine Angélica Granger P.A.-C. [address] [place] [phone] 06/19/2022 Appointment Laboratory Medicine Angélica Granger P.A.-C. [address] [place] [phone] 07/03/2022 Appointment Laboratory Medicine Angélica Granger P.A.-C. [address] [place] [phone] 07/17/2022 Appointment Laboratory Medicine Angélica Granger P.A.-C. [address] [place] [phone] 07/31/2022 Appointment Laboratory Medicine Angélica Granger P.A.-C. [address] [place] [phone] 08/14/2022 Appointment Laboratory Medicine Angélica Granger P.A.-C. [address] [place] [phone] 08/28/2022 Appointment Laboratory Medicine Angélica Granger P.A.-C. [address] [place] [phone] Scheduled Orders Name Type Priority Associated Diagnoses [...] 2:14 Venous) PM CDT PM CDT Narrative [facility] - 11/23/2019 4:16 PM CDT Specimen Information: Specimen ID: [id number] Specimen Type: Varies Specimen Collection Start Date: 0 12:00 PM Specimen Received Date: 11/23/2019 ??2:14 PM Specimen ID: [id number] Specimen Type: Varies Specimen Collection Start Date: 0 ??1:02 PM Specimen Received Date: 11/23/2019 ??2:14 PM Specimen ID: [id number] Specimen Type: Varies Specimen Collection Start Date: 0 ??1:48 PM Specimen Received Date: 11/23/2019 ??2:14 PM Specimen ID: [id number] Specimen Type: Varies Specimen Collection Start Date: 0 ??1:06 PM Specimen Received Date: 11/23/2019 ??2:14 PM Specimen ID: [id number] Specimen Type: Varies Specimen Collection Start Date: 0 ??1:51 PM Specimen Received Date: 11/23/2019 ??2:14 PM Angélica rGanger P.A.-C. LAB BLOOD NON ADD-ON Performing Organization Address City/State/ZIP Code Phon e Number [facility] - [address] [place], [place] [address] [place] [address] [facility] [address] documented in [...] documented as of this encounter Care Teams Railroad Car Checker Relationship Specialty Start Date End Date Elsewhere, Pcp PCP - General Family Medicine 07/29/17 documented as of this encounter
--- OUTSIDE RECORDS SUMMARY | 2022-05-17 18:56 | XMS_ITS | Encounter Summary ---
:1955 Author Organization [facility] Address [address] [place] [address] Care Team Providers Name Role Phone Elsewhere, Pcp Primary Care Provider Unavailable Reason for Visit Reason Comments COVID Nurse Line Encounter Details Date Type Department Care Team Description 11/16/2019 Clinical Communication SHERIDAN Ching Nurse Line Center for Angélica J, Transplantation and P.A.-C. 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 Avoid [...] essential items or medical care). Educational Resource: https://www.cdc.gov/coronavirus/2019-ncov/alosxsq-sbeckjb-dyuz/index.html SELF CARE FOR ALL PATIENTS: In these [...] care: Yes The following references were used: [facility] novel coronavirus (COVID- 19) resources [facility] Nursing judgement Telephone Encounter - Lena Brown [...] Laboratory Medicine Angélica Granger P.A.-C. [address] [place] [address] [phone] 05/23/2022 Clinical Admitting/Central Communication Scheduling 05/27/2022 Comprehensive Visit Orthopedic Surgery Markus Sams M.D., Ph.D. [address] [place] [address] [phone] 05/29/2022 Office Visit Otorhinolaryngology Dex Matta, RAMONA, C.N.P., M.S.N. [address] [place] [address] [phone] 05/29/2022 Office Visit Otorhinolaryngology Nadeem Maradiaga, PEdgar.Marie., M.S. [address] [place] [phone] 05/31/2022 Appointment Radiology Guilherme Matt MPAS, P.A.-C., M.S. [address] [place] [phone] 06/05/2022 Appointment Laboratory Medicine Angélica Granger P.A.-C. [address] [place] [phone] 06/19/2022 Appointment Laboratory Medicine Angélica Granger P.A.-C. [address] [place] [phone] 07/03/2022 Appointment Laboratory Medicine Angélica Granger P.A.-C. [address] [place] [phone] 07/17/2022 Appointment Laboratory Medicine Angélica Granger P.A.-C. [address] [place] [address] [phone] 07/31/2022 Appointment Laboratory Medicine Angélica Granger P.A.-C. [address] [place] [phone] 08/14/2022 Appointment Laboratory Angélica Royal P.A.-C. [address] [place] [phone] 08/28/2022 Appointment Laboratory Angélica Royal P.A.-CDemetrius [address] [place] [phone] documented as of this encounter Visit Diagnoses Not on filedocumented in this encounter Additional Health Concerns Assessment Noted Time PHQ-9 Depression Total Score: 5 03/02/2019 10:51 AM CD T documented as of this encounter Care Teams Rv Servicer Relationship Specialty Start Date End Date Elsewhere, Pcp PCP - General Family Medicine 07/29/17 documented as of this encounter
--- OUTSIDE RECORDS SUMMARY | 2022-05-17 18:56 | XMS_ITS | Encounter Summary ---
:1955 Author Organization [facility] Address [address] [place] [address] Care Team Providers Name Role Phone Elsewhere, Pcp Primary Care Provider Unavailable Reason for Visit Reason Onset Date Comments telephone 08/16/2019 new orders needed Encounter Details Date Type Department Care Team Description 08/16/2019 Clinical Curt Dove, tele one (new Communication Center for Blanca Bonny, orders needed ) Transplantation and R.N. 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 - 08/18/2019 9:59 AM AUTO GARAGE ATTENDANT SUBJECTIVE CHIEF COMPLAINT / REASON FOR CALL telephone (new orders needed ) Information Discussed I talked with Tomeka from the [facility] in [place], [place] because I wanted to verify that Bruce's tacrolimus trough was a true 12 hour trough as it came back at <2.0. [facility] is no longer drawing [facility] kits so the tacrolimus levels will very. [...] following references were used: nursing clinical judgment GARAGE ATTENDANT Telephone Encounter - Mateo Rodríguez - 08/18/2019 9:49 AM CST Tena called back regarding voice message that was left by Blanca(I see no call was documented?) She is faxing over information on this. Please call her back with any questions. GARAGE ATTENDANT Telephone Encounter - Blanca Canales R.N. - 08/16/2019 1:48 PM AUTO GARAGE ATTENDANT New standing lab order has been faxed GARAGE ATTENDANT Telephone Encounter - Jessica Dolan - 08/16/2019 12:11 PM CST Tomeka calling from [facility]. They are in need an updated order for this patient for Prograf forfuture. They no longer accept the kits that that patient has. The fax number is [phone]. GARAGE ATTENDANT documented in this encounter Plan of Treatment Upcoming Encounters Date Type Specialty Care Team Description 05/22/2022 Appointment Laboratory Medicine Angélica Granger P.A.Marie. [address] [place] [phone] 05/23/2022 Clinical Admitting/Central Communication Scheduling 05/27/2022 Comprehensive Visit Orthopedic Surgery Markus Sams M.D., Ph.D. [address] [place] [phone] 05/29/2022 Office Visit Otorhinolaryngology Dex Matta APRN, C.N.P., M.S.N. [address] [place] [phone] 05/29/2022 Office Visit Otorhinolaryngology Nadeem Maradiaga, P.A.-C., M.S. [address] [place] [address] [phone] 05/31/2022 Appointment Radiology Guilherme Matt, RASTA, P.Murtaza.-Arley., M.S. [address] [place] [address] [phone] 06/05/2022 Appointment Laboratory Medicine Angélica Granger P.A.-C. [address] [place] [address] [phone] 06/19/2022 Appointment Laboratory Medicine Angélica Granger P.A.-C. [address] [place] [phone] 07/03/2022 Appointment Laboratory Medicine Angélica Granger P.A.-C. [address] [place] [address] [phone] 07/17/2022 Appointment Laboratory Medicine Angélica Granger P.A.-C. [address] [place] [phone] 07/31/2022 Appointment Laboratory Medicine Angélica Granger P.A.-C. [address] [place] [phone] 08/14/2022 Appointment Laboratory Angélica Royal P.A.-C. [address] [place] [phone] 08/28/2022 Appointment Laboratory Angélica Royal P.A.-C. [address] [place] [phone] documented as of this encounter Visit Diagnoses Not on filedocumented in this encounter Additional Health Concerns Assessment Noted Time PHQ-9 Depression Total Score: 5 03/02/2019 10:51 AM CD T documented as of this encounter Care Teams Organisation And Methods Analyst Relationship Specialty Start Date End Date Elsewhere, Pcp PCP - General Family Medicine 07/29/17 documented as of this encounter
--- OUTSIDE RECORDS SUMMARY | 2022-05-17 18:56 | XMS_ITS | Encounter Summary ---
:1955 Author Organization [facility] Address [address] [place] [address] Care Team Providers Name Role Phone Elsewhere, Pcp Primary Care Provider Unavailable Reason for Visit Reason Onset Date Comments Appointment 06/25/2019 Encounter Details Date Type Department Care Team Description 06/25/2019 Clinical Communication Division of Nephrology Joel monae, Appointment and Hypertension in [place], [place] [address] [facility] [address] [place] [phone] Social History Tobacco Use Types Packs/Day Years [...] at Date Recorded Male 05/16/2020 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 - 06/28/2019 1:24 PM BLENDER / COOK I don't need US before his visit with me. I can see him on Aug 16 and have him get US on Aug 17 DER / COOK Telephone Encounter - Joce Bailey M.D. - 06/25/2019 1:32 PM BLENDER / COOK I can see him on Aug 16 in the afternoon. Please let me know if blood and urine test are ordered. DER / COOK Telephone Encounter - Rosio Santamaria - 06/25/2019 11:[address] Bailey, Mr Singh is scheduled for his annual liver check on August 16 and . He is also scheduled to see you around that time. You are on research. Would you like to see him or have him do testing and review? Please advise. Thank you Rosio DER / COOK Telephone Encounter - Rosio Santamaria - 06/25/2019 11:[address] Bailey.. Mr Singh is scheduled for hisI am annual liver checkup on 08/16/19 thru 08/17/19. I am also due to see you..Could you schedule an appt for us during that time as well as blood test included with the other ones..blood tests are on 08/16/19 at 6:10 am..Thankyou.Bruce Singh DER / COOK documented in this encounter Plan of Treatment Upcoming Encounters Date Type Specialty Care Team Description 05/22/2022 Appointment Laboratory Medicine Angélica Granger P.A.-C. [address] [place] [phone] 05/23/2022 Clinical Admitting/Central Communication Scheduling 05/27/2022 Comprehensive Visit Orthopedic Surgery Markus Sams M.D., Ph.D. [address] [place] [phone] 05/29/2022 Office Visit Otorhinolaryngology Dex Matta APRN, C.N.P., M.S.N. [address] [place] [address] [phone] 05/29/2022 Office Visit Otorhinolaryngology Nadeem Maradiaga, P.A.-C., M.S. [address] [place] [address] [phone] 05/31/2022 Appointment Radiology Guilherme Matt MPAS, P.A.-C., M.S. [address] [place] [address] [phone] 06/05/2022 Appointment Laboratory Medicine Angélica Granger P.A.-C. [address] [place] [address] [phone] 06/19/2022 Appointment Laboratory Medicine Angélica Granger P.A.-C. [address] [place] [phone] 07/03/2022 Appointment Laboratory Medicine Angéliac Granger P.A.-C. [address] [place] [phone] 07/17/2022 Appointment Laboratory Medicine Angélica Granger P.A.-C. [address] [place] [phone] 07/31/2022 Appointment Laboratory Medicine Angélica Granger P.A.-C. [address] [place] [phone] 08/14/2022 Appointment Laboratory Medicine Angélica Granger P.A.-C. [address] [place] [phone] 08/28/2022 Appointment Laboratory Medicine Angélica Granger P.A.-C. [address] [place] [phone] documented as of this encounter Visit Diagnoses Not on filedocumented in this encounter Additional Health Concerns Assessment Noted Time PHQ-9 Depression Total Score: 5 03/02/2019 10:51 AM CD T documented as of this encounter Care Teams Consultant Internship Relationship Specialty Start Date End Date Elsewhere, Pcp PCP - General Family Medicine 07/29/17 documented as of this encounter
--- OUTSIDE RECORDS SUMMARY | 2022-05-17 18:56 | XMS_ITS | Encounter Summary ---
:1955 Author Organization [facility] Address [address] [place] [address] Care Team Providers Name Role Phone Elsewhere, Pcp Primary Care Provider Unavailable Reason for Visit Reason Onset Date Comments Med Refill 07/26/2019 Encounter Details Date Type Department Care Team Description 07/26/2019 [facility] Transplantation and Clinical R.N . 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 [address] [place] [phone] 05/23/2022 Clinical Admitting/Central Communication Scheduling 05/27/2022 Comprehensive Visit Orthopedic Surgery Markus Sams M.D., Ph.D. [address] [place] [phone] 05/29/2022 Office Visit Otorhinolaryngology Dex Matta APRN, C.N.P., M.S.N. [address] [place] [phone] 05/29/2022 Office Visit Otorhinolaryngology Nadeem Maradiaga, P.Murtaza.-Arley., M.S. [address] [place] [address] [phone] 05/31/2022 Appointment Radiology Guilherme Matt MPAS, P.Murtaza.Marie., M.S. [address] [place] [phone] 06/05/2022 Appointment Laboratory Medicine Angélica Granger P.A.-C. [address] [place] [phone] 06/19/2022 Appointment Laboratory Medicine Angélica Granger P.A.-C. [address] [place] [phone] 07/03/2022 Appointment Laboratory Angélica Royal P.A.-C. [address] [place] [phone] 07/17/2022 Appointment Laboratory Angélica Royal P.A.-C. [address] [place] [phone] 07/31/2022 Appointment Laboratory Angélica Royal P.A.-C. [address] [place] [phone] 08/14/2022 Appointment Laboratory Angélica Royal P.A.-C. [address] [place] [phone] 08/28/2022 Appointment Laboratory Angélica Royal P.A.-C. 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
--- OUTSIDE RECORDS SUMMARY | 2022-05-17 18:56 | XMS_ITS | Encounter Summary ---
:1955 Author Organization [facility] Address [address] [place] [address] Care Team Providers Name Role Phone Elsewhere, Pcp Primary Care Provider Unavailable Encounter Details Date Type Department Care Team Description 11/17/2019 Hospital Encounter Department of Laura Bailey Renal Radiology, Kd Hobson M.D. Artery ([facility]) Building, in [address] [place] [address] [place] [phone] [place], [place] [phone] (Work) [phone] Social History Tobacco Use Types Packs/Day Years [...] Date Recorded Male 05/16/2020 4:27 PM RN CHARGE documented as of this encounter Medications at [...] ([facility]), daily. Medication Therapy Exercise Physiologist Not Anticoagulant tacrolimus (PROGRAF) 0.5 Take 2 [...] Laboratory Medicine Angélica Granger P.A.-C. [address] [place] [phone] 05/23/2022 Clinical Admitting/Central Communication Scheduling 05/27/2022 Comprehensive Visit Orthopedic Surgery Markus Sams M.D., Ph.D. [address] [place] [address] [phone] 05/29/2022 Office Visit Otorhinolaryngology Dex Matta APRN, C.N.P., M.S.N. [address] [place] [phone] 05/29/2022 Office Visit Otorhinolaryngology Nadeem Maradiaga, PMaryanne., M.S. [address] [place] [phone] 05/31/2022 Appointment Radiology Guilherme Matt, RASTA, Jennifer., M.S. [address] [place] [phone] 06/05/2022 Appointment Laboratory Medicine Angélica Granger P.A.-C. [address] [place] [phone] 06/19/2022 Appointment Laboratory Medicine Angélica Granger P.A.-C. [address] [place] [phone] 07/03/2022 Appointment Laboratory Medicine Angélica Granger P.A.-C. [address] [place] [phone] 07/17/2022 Appointment Laboratory Medicine Angélica Granger P.A.-C. [address] [place] [phone] 07/31/2022 Appointment Laboratory Medicine Angélica Granger P.A.-C. [address] [place] [phone] 08/14/2022 Appointment Laboratory Medicine Angélica Granger P.A.-C. [address] [place] [phone] 08/28/2022 Appointment Laboratory Medicine Angélica Granger P.A.-C. [address] [place] [phone] documented as of this encounter Procedures Procedure [...] documented as of this encounter Care Teams State Farm Agent Relationship Specialty Start Date End Date Elsewhere, Pcp PCP - General Family Medicine 07/29/17 documented as of this encounter
--- OUTSIDE RECORDS SUMMARY | 2022-05-17 18:56 | XMS_ITS | Encounter Summary ---
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 - 09/20/2019 11:22 AM CDT Surescripts refill request received for atorvastatin 10 mg daily. Prescription forwarded to provideras previous prescription had zero refills. documented in this encounter Plan of Treatment Upcoming Encounters Date Type Specialty Care Team Description 05/22/2022 Appointment Laboratory Medicine Angélica Granger P.A.-C. [address] [place] [phone] 05/23/2022 Clinical Admitting/Central Communication Scheduling 05/27/2022 Comprehensive Visit Orthopedic Surgery Markus Sams M.D., Ph.D. [address] [place] [phone] 05/29/2022 Office Visit Otorhinolaryngology Dex Matta APRN, C.N.P., M.S.N. [address] [place] [phone] 05/29/2022 Office Visit Otorhinolaryngology Nadeem Maradiaga, Edmundo, M.S. [address] [place] [phone] 05/31/2022 Appointment Radiology Guilherme Matt MPAS, P.A.-C., M.S. [address] [place] [phone] 06/05/2022 Appointment Laboratory Medicine Angélica Granger P.A.-C. [address] [place] [phone] 06/19/2022 Appointment Laboratory Medicine Angélica Granger P.A.-C. [address] [place] [phone] 07/03/2022 Appointment Laboratory Medicine Angélica Granger P.A.-C. [address] [place] [phone] 07/17/2022 Appointment Laboratory Medicine Angélica Granger P.A.-C. [address] [place] [phone] 07/31/2022 Appointment Laboratory Medicine Angélica Granger P.A.-C. [address] [place] [phone] 08/14/2022 Appointment Laboratory Medicine Angélica Granger P.A.-C. [address] [place] [phone] 08/28/2022 Appointment Laboratory Medicine Angélica Granger P.A.-C. [address] [place] [phone] documented as of this encounter Visit Diagnoses Not on filedocumented in this encounter Additional Health Concerns Assessment Noted Time PHQ-9 Depression Total Score: 5 03/02/2019 10:51 AM CD T documented as of this encounter Care Teams Barrel Bridge Assembler Relationship Specialty Start Date End Date Elsewhere, Pcp PCP - General Family Medicine 07/29/17 documented as of this encounter
--- OUTSIDE RECORDS SUMMARY | 2022-05-17 18:56 | XMS_ITS | Encounter Summary ---
:1955 Author Organization [facility] Address [address] [place] [address] Care Team Providers Name Role Phone Elsewhere, Pcp Primary Care Provider Unavailable Reason for Referral Transplant (Routine) - Closed Specialty Diagnoses / Procedures Referred By Contact Refer red To Contact Transplant Surgery / Diagnoses Transplant Liver (HCC) Medication Therapy Penitentiary Not Anticoagulant Angélica Granger [facility] Transplant [facility]. [address] [place] [address] Referral ID Status Reason Start Date Expiration Date Visits Requ ested Visits Authorized [id number] Closed 06/21/2019 06/20/2020 1 1 Scheduling Instructions Patient to see Dr. Douglas MODEL Transplant (Routine) - Closed Specialty Diagnoses / Procedures Referred By Contact Refer red To Contact Transplant Surgery / Diagnoses Transplant Liver (HCC) Medication Therapy Penitentiary Not Anticoagulant Angélica Granger [facility] Transplant P.A.-C. [address] [place] [address] Referral ID Status Reason Start Date Expiration Date Visits Requ ested Visits Authorized [id number] Closed 06/21/2019 06/20/2020 1 1 MODEL Transplant (Routine) - Closed Specialty Diagnoses / Procedures Referred By Contact Refer red To Contact Transplant Surgery / Diagnoses Transplant Liver (HCC) Medication Therapy Side Laster Tack Not Anticoagulant Angélica Granger [facility] Transplant P.A.-C. [address] [place] [address] Referral ID Status Reason Start Date Expiration Date Visits Requ ested Visits Authorized [id number] Closed 06/21/2019 06/20/2020 1 1 MODEL Transplant (Routine) - Closed Specialty Diagnoses / Procedures Referred By Contact Refer red To Contact Transplant Surgery / Diagnoses Transplant Liver (HCC) Medication Therapy Penitentiary Not Anticoagulant Angélica Granger, [facility] Transplant P.A.-C. [address] [place] [address] Referral ID Status Reason Start Date Expiration Date Visits Requ ested Visits Authorized [id number] Closed 06/21/2019 06/20/2020 1 1 MODEL Encounter Details Date Type Department Care Team Description 06/21/2019 Orders Only Blanca Luis Tr ansplant Liver (HCC) (Primary Dx); Center for M, R.N. Medication Therapy Penitentiary Not Anticoa gulant; Transplantation and [phone] Screenin g Examination Prostate Cancer; Clinical Regeneration in (Work) Ost eoporosis; [place], [place] Chronic Kidney Disease [address] [place] [address] Social History Tobacco Use Types Packs/Day [...] at Date Recorded Male 05/16/2020 4:27 PM FIT MODEL documented as of this encounter Plan of Treatment Upcoming Encounters Date Type Specialty Care Team Description 05/22/2022 Appointment Laboratory Medicine Angélica Granger, P.A.-C. [address] [place] [phone] 05/23/2022 Clinical Admitting/Central Communication Scheduling 05/27/2022 Comprehensive Visit Orthopedic Surgery Markus Sams M.D., Ph.D. [address] [place] [phone] 05/29/2022 Office Visit Otorhinolaryngology Dex Matta APRN, C.N.P., M.S.N. [address] [place] [phone] 05/29/2022 Office Visit Otorhinolaryngology Nadeem Maradiaga, P.A.-C., M.S. [address] [place] [phone] 05/31/2022 Appointment Radiology Guilherme Matt MPAS, P.A.-C., M.S. [address] [place] [phone] 06/05/2022 Appointment Laboratory Medicine Angélica Granger P.A.-C. [address] [place] [phone] 06/19/2022 Appointment Laboratory Medicine Angélica Granger P.A.-C. [address] [place] [phone] 07/03/2022 Appointment Laboratory Medicine Angélica Granger P.A.-C. [address] [place] [phone] 07/17/2022 Appointment Laboratory Medicine Angélica Granger P.A.-C. [address] [place] [phone] 07/31/2022 Appointment Laboratory Medicine Angélica Granger P.A.-C. [address] [place] [phone] 08/14/2022 Appointment Laboratory Medicine Angélica Granger P.A.-C. [address] [place] [phone] 08/28/2022 Appointment Laboratory Medicine Angélica Granger P.A.-C. [address] [place] [phone] Scheduled Orders Name Type Priority Associated Diagnoses Order S chedule Short renal clearance: Procedures Routine Transplan t Liver (HCC) Expected: Iothalamate (Renal Medication Therapy [place] g 08/16/2019 Studies Unit) Term Not Anticoagulant (Kenisha roximate), Expires: 2019 Scheduled Referrals Name Type Priority Associated Diagnoses Order S chedule Transplant Liver Outpatient Referral Routine Transplant Liver (HCC) Expected: office visit Medication Therapy 0 (clinic) Side Laster Tack Not (Approximate), Anticoagulant Expires: 06/21/2020 Transplant Liver Outpatient Referral Routine Transplant Liver (HCC) Expected: office visit Medication Therapy 0 (clinic) Penitentiary Not (Approximate), Anticoagulant Expires: 06/21/2020 Transplant Liver Outpatient Referral Routine Transplant Liver (HCC) Expected: office visit Medication Therapy 0 (clinic) Penitentiary Not (Approximate), Anticoagulant Expires: 06/21/2020 Transplant Liver Outpatient Referral Routine Transplant Liver (HCC) Expected: office visit Medication Therapy 0 (clinic) Side Laster Tack Not (Approximate), Anticoagulant Expires: 06/21/2020 documented as [...] LAB BLOOD NON ADD-ON Performing Organization Address City/[facility] Phon e Number [facility] [address] [place], [place] [address] [facility] [place] [address] Laboratory Medicine and Pathology [address] [place] PSA (Prostate-Specific Antigen) Screen (11/17/2019 9:29 AM CDT) athologist Signature Prostate-Specif 0.40 <=4.5 ng/mL 11/17/2019 DT ic Ag 12:21 PM CDT Comment: ----ADDITIONAL [...] P.A.-C. LAB BLOOD ADD-ON Performing Organization Address City/[facility] Phon e Number [facility] - [address] [place], [place] [address] [place] [address] Laboratories-[facility] [address] (ABNORMAL) CBC no call back, reflex T/S HGB <8 (11/17/2019 9:29 AM CDT) [facility] gist Method Time Signature Hemoglobin 10.1 (L) [...] HEART HOSPITAL LABOR[facility] - [address] [place], [place] [address] [facility] [place] [address] (ABNORMAL) S-TSH (Thyroid-Stimulating Hormone - Sensitive) (11/17/2019 9:29 AM CDT) athologist Signature TSH, Sensitive 6.1 (H) 0.3 - 4.2 11/17/2019 DTL mIU/L 12:21 PM CDT Specimen Anatomical Collection Method Collection Time Receive d Time (Source) Location / / Volume Laterality Blood (Blood, 11/17/2019 9:29 AM 11/17/19 9:49 Venous) CDT AM CDT Angélica Granger P.A.-C. LAB BLOOD ADD-ON Performing Organization Address City/[facility]/ZIP [facility] Phon e Number [address] Hemoglobin A1c (11/17/2019 9:29 AM CDT) athologist Signature Hemoglobin A1c, 5.5 4.0 - 5.6 11/17/2019 DTL B % 10:03 AM CDT Specimen Anatomical Collection Method Collection Time Receive d Time (Source) Location / / Volume Laterality Blood (Blood, 11/17/2019 9:29 AM 11/17/19 9:49 Venous) CDT AM CDT Angélica Granger P.A.-C. LAB BLOOD ADD-ON Performing Organization Address City/State/[facility] Phon e Number [address] (ABNORMAL) Comprehensive Metabolic Panel (11/17/2019 9:29 [...] 11/17/2019 DTL Black/ mL/min/BSA 11:37 AM CDT [place] Comment: ----ADDITIONAL INFORMATION---- Estimated GFR calculated using [...] P.A.-C. LAB BLOOD ADD-ON Performing Organization Address City/State/[facility] Phon e Number [facility] - [address] [place], [place] [address] [facility] [place] [address] Laboratories-[facility] [address] [facility] Mononucleosis RNA/DNA (11/17/2019 9:28 AM CDT) Analysis Performed At Patho logist Time Signature [place] RNA/DNA Collected DEFAULT 11/17/2019 HSS EDTA x 2 9:28 AM CDT [place] RNA/DNA Collected DEFAULT 11/17/2019 HSS NaHep 9:28 AM CDT Specimen Anatomical Collection Method Collection Time Receive d Time (Source) Location / / Volume Laterality Blood (Blood, 11/17/2019 9:28 AM 11/17/19 9:28 Venous) CDT AM CDT Narrative [facility] - 11/17/2019 9:28 AM CDT Specimen Information: Specimen ID: [id number] Specimen Type: Blood Specimen Collection Start Date: 11/17/19 20 ??9:28 AM Specimen Received Date: 11/17/2019 ??9:2 8 AM Specimen ID: [id number] Specimen Type: Blood Specimen Collection Start Date: 11/17/19 20 ??9:28 AM Specimen Received Date: 11/17/2019 ??9:2 8 AM Specimen ID: [id number] Specimen Type: Blood Specimen Collection Start Date: 11/17/19 ??9:28 AM Specimen Received Date: 11/17/2019 ??9:2 8 AM Angélica Granger P.A.-C. LAB BLOOD NON ADD-ON Performing Organization Address City/[facility] Phon e Number [facility] - [address] [place], [place] [address] [place] [address] [facility] [address] [facility] Organ Liver TX (11/17/2019 9:28 AM CDT) Analysis Performed At Patho logist Time Signature Organ Liver [place] Collected DEFAULT 11/17/2019 HSS 9:28 AM CDT Specimen Anatomical Collection Method Collection Time Receive d Time (Source) Location / / Volume Laterality Blood (Blood, 11/17/2019 9:28 AM 11/17/19 20 9:28 Venous) CDT AM CDT Angélica Granger P.A.-C. LAB BLOOD NON ADD-ON Performing Organization Address City/[facility] Phon e Number [facility] - [address] [place], [place] [address] [place] [address] Laboratories-[address] Prothrombin Time (PT) (11/17/2019 9:28 AM [...] P.A.-C. LAB BLOOD ADD-ON Performing Organization Address City/[facility] Phon e Number [facility] - [address] [place] [address] [facility] [place] [address] Laboratories-[address] (ABNORMAL) Lipid Panel (11/17/2019 9:28 AM CDT) [...] P.A.-C. LAB BLOOD ADD-ON Performing Organization Address City/[facility] Phon e Number [facility] - [address] Bilirubin, Direct (11/17/2019 9:28 AM CDT) P athologist Signature Bilirubin, <0.2 0.0 - 0.3 11/17/2019 DTL Direct, S mg/dL 11:56 AM CDT Specimen Anatomical Collection Method Collection Time Receive d Time (Source) Location / / Volume Laterality Blood (Blood, 11/17/2019 9:28 AM 11/17/19 20 9:49 Venous) CDT AM CDT Angélica Granger P.A.-C. LAB BLOOD ADD-ON Performing Organization Address City/[facility] Phon e Number [facility] - [address] [place], [place] [address] [place] [id number] [place] [address] documented in this encounter Visit Diagnoses Diagnosis Transplant Liver (HCC) - Primary Medication Therapy Side Laster Tack Not Anticoa gulant Screening Examination Prostate Cancer Osteoporosis Chronic Kidney Disease Chronic Kidney Disease Stage 4 Glomerula r Filtration Rate 15-29 (HCC) Transplant Liver (HCC) Medication Therapy Side Laster Tack Not Anticoa gulant Chronic Kidney Disease Osteoporosis Screening Examination Prostate Cancer Transplant Liver (HCC) Medication Therapy Side Laster Tack Not Anticoa gulant Transplant Liver (HCC) Medication Therapy Penitentiary Not Anticoa gulant documented in this encounter Additional Health Concerns Assessment Noted Time PHQ-9 Depression Total Score: 5 03/02/2019 10:51 AM CD T documented as of this encounter Care Teams [employer] Paralegal Relationship Specialty Start Date End Date Elsewhere, Pcp PCP - General Family Medicine 07/29/17 documented as of this encounter
--- OUTSIDE RECORDS SUMMARY | 2022-05-17 18:56 | XMS_ITS | Encounter Summary ---
:[address] 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 [address] [place] [phone] 05/23/2022 Clinical Admitting/Central Communication Scheduling 05/27/2022 Comprehensive Visit Orthopedic Surgery Markus Sams M.D., Ph.D. [address] [place] [phone] 05/29/2022 Office Visit Otorhinolaryngology Dex Matta APRN, C.N.P., M.S.N. [address] [place] [phone] 05/29/2022 Office Visit Otorhinolaryngology Nadeem Maradiaga, P.Tom., M.S. [address] [place] [phone] 05/31/2022 Appointment Radiology Guilherme Matt, RASTA, PMaryanne., M.S. [address] [place] [phone] 06/05/2022 Appointment Laboratory Medicine Angélica Granger P.A.-C. [address] [place] [phone] 06/19/2022 Appointment Laboratory Medicine Angélica Granger P.A.-C. [address] [place] [phone] 07/03/2022 Appointment Laboratory Medicine Angélica Granger P.A.-C. [address] [place] [phone] 07/17/2022 Appointment Laboratory Medicine Angélica Granger P.A.-C. [address] [place] [phone] 07/31/2022 Appointment Laboratory Medicine Angélica Granger P.A.-C. [address] [place] [phone] 08/14/2022 Appointment Laboratory Medicine Angélica Granger P.A.-C. [address] [place] [phone] 08/28/2022 Appointment Laboratory Medicine Angélica Granger P.A.-C. [address] [place] [phone] documented as of this encounter Visit Diagnoses Not on filedocumented in this encounter Additional Health Concerns Assessment Noted Time PHQ-9 Depression Total Score: 5 03/02/2019 10:51 AM CD T documented as of this encounter Care Teams [employer] Director Relationship Specialty Start Date End Date Elsewhere, Pcp PCP - General Family Medicine 07/29/17 documented as of this encounter
--- OUTSIDE RECORDS SUMMARY | 2022-05-17 18:56 | XMS_ITS | Encounter Summary ---
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 [address] [place] [phone] 05/23/2022 Clinical Admitting/Central Communication Scheduling 05/27/2022 Comprehensive Visit Orthopedic Surgery Markus Sams M.D., Ph.D. [address] [place] [phone] 05/29/2022 Office Visit Otorhinolaryngology Dex Matta APRN, C.N.P., M.S.N. [address] [place] [phone] 05/29/2022 Office Visit Otorhinolaryngology Nadeem Maradiaga, P.Murtaza.-Arley., M.S. [address] [place] [phone] 05/31/2022 Appointment Radiology Guilherme Matt MPAS, Jennifer., M.S. [address] [place] [phone] 06/05/2022 Appointment Laboratory Medicine Angélica Granger P.A.-C. [address] [place] [phone] 06/19/2022 Appointment Laboratory Medicine Angélica Granger P.A.-C. [address] [place] [phone] 07/03/2022 Appointment Laboratory Medicine Angélica Granger P.A.-C. [address] [place] [phone] 07/17/2022 Appointment Laboratory Medicine Angélica Granger P.A.-C. [address] [place] [phone] 07/31/2022 Appointment Laboratory Medicine Angélica Granger P.A.-C. [address] [place] [phone] 08/14/2022 Appointment Laboratory Angélica Royal P.A.-C. [address] [place] [phone] 08/28/2022 Appointment Laboratory Angélica Royal P.A.-C. [address] [place] [phone] documented as of this encounter Visit Diagnoses Diagnosis Hypertension Essential Primary documented in this encounter Additional Health Concerns Assessment Noted Time PHQ-9 Depression Total Score: 5 03/02/2019 10:51 AM CD T documented as of this encounter Care Teams Director Hr Communications Relationship Specialty Start Date End Date Elsewhere, Pcp PCP - General Family Medicine 07/29/17 documented as of this encounter
--- OUTSIDE RECORDS SUMMARY | 2022-05-17 18:56 | XMS_ITS | Encounter Summary ---
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 [address] [place] [phone] 05/23/2022 Clinical Admitting/Central Communication Scheduling 05/27/2022 Comprehensive Visit Orthopedic Surgery Markus Sams M.D., Ph.D. [address] [place] [phone] 05/29/2022 Office Visit Otorhinolaryngology Dex Matta APRN, C.N.P., M.S.N. [address] [place] [phone] 05/29/2022 Office Visit Otorhinolaryngology Nadeem Maradiaga, P.A.-Arley., M.S. [address] [place] [phone] 05/31/2022 Appointment Radiology Guilherme Matt, RASTA, P.Murtaza.Marie., M.S. [address] [place] [phone] 06/05/2022 Appointment Laboratory Medicine Angélica Granger P.A.-C. [address] [place] [phone] 06/19/2022 Appointment Laboratory Medicine Angélica Granger P.A.-C. [address] [place] [phone] 07/03/2022 Appointment Laboratory Medicine Angélica Granger P.A.-C. [address] [place] [phone] 07/17/2022 Appointment Laboratory Medicine Angélica Granger P.A.-C. [address] [place] [phone] 07/31/2022 Appointment Laboratory Medicine Angélica Granger P.A.-C. [address] [place] [phone] 08/14/2022 Appointment Laboratory Medicine Angélica Granger P.A.-C. [address] [place] [phone] 08/28/2022 Appointment Laboratory Medicine Angélica Granger P.A.-C. [address] [place] [phone] documented as of this encounter Visit Diagnoses Not on filedocumented in this encounter Additional Health Concerns Assessment Noted Time PHQ-9 Depression Total Score: 5 03/02/2019 10:51 AM CD T documented as of this encounter Care Teams Limnologist Relationship Specialty Start Date End Date Elsewhere, Pcp PCP - General Family Medicine 07/29/17 documented as of this encounter
--- OUTSIDE RECORDS SUMMARY | 2022-05-17 18:56 | XMS_ITS | Encounter Summary ---
:1955 Author Organization [facility] Address [address] [place] [address] Care Team Providers Name Role Phone Elsewhere, Pcp Primary Care Provider Unavailable Encounter Details Date Type Department Care Team Description 08/16/2019 Orders Only Blanca Luis ansplant Liver (HCC) (Primary Dx); Center for M, R.N. 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 [address] [place] [phone] 05/23/2022 Clinical Admitting/Central Communication Scheduling 05/27/2022 Comprehensive Visit Orthopedic Surgery Markus Sams M.D., Ph.D. [address] [place] [phone] 05/29/2022 Office Visit Otorhinolaryngology Dex Matta, RAMONA, C.N.P., M.S.N. [address] [place] [phone] 05/29/2022 Office Visit Otorhinolaryngology Nadeem Maradiaga, P.Murtaza.-C., M.S. [address] [place] [address] [phone] 05/31/2022 Appointment Radiology Guilherme Matt MPAS, P.Murtaza.Marie., M.S. [address] [place] [phone] 06/05/2022 Appointment Laboratory Medicine Angélica Granger P.A.-C. [address] [place] [phone] 06/19/2022 Appointment Laboratory Medicine Angélica Granger P.A.-C. [address] [place] [phone] 07/03/2022 Appointment Laboratory Medicine Angélica Granger P.A.-C. [address] [place] [phone] 07/17/2022 Appointment Laboratory Angélica Royal P.A.-C. [address] [place] [phone] 07/31/2022 Appointment Laboratory Angélica Royal P.A.-C. [address] [place] [phone] 08/14/2022 Appointment Laboratory Angélica Royal P.A.-C. [address] [place] [phone] 08/28/2022 Appointment Laboratory Angélica Royal P.A.-C. 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
--- OUTSIDE RECORDS SUMMARY | 2022-05-17 18:56 | XMS_ITS | Encounter Summary ---
:1955 Author Organization [facility] Address [address] [place] [address] Care Team Providers Name Role Phone Elsewhere, Pcp Primary Care Provider Unavailable Encounter Details Date Type Department Care Team Description 06/21/2019 Orders Only Blanca Luis ansplant Liver (HCC) (Primary Dx); Center for M, R.N. 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 [address] [place] [phone] 05/23/2022 Clinical Admitting/Central Communication Scheduling 05/27/2022 Comprehensive Visit Orthopedic Surgery Markus Sams M.D., Ph.D. [address] [place] [phone] 05/29/2022 Office Visit Otorhinolaryngology Dex Matta, RAMONA, C.N.P., M.S.N. [address] [place] [phone] 05/29/2022 Office Visit Otorhinolaryngology Nadeem Maradiaga, P.Murtaza.-C., M.S. [address] [place] [address] [phone] 05/31/2022 Appointment Radiology Guilherme Matt MPAS, P.Murtaza.Marie., M.S. [address] [place] [address] [phone] 06/05/2022 Appointment Laboratory Medicine Angélica Granger P.A.-C. [address] [place] [phone] 06/19/2022 Appointment Laboratory Medicine Angélica Granger P.A.-C. [address] [place] [phone] 07/03/2022 Appointment Laboratory Medicine Angélica Granger P.A.-C. [address] [place] [phone] 07/17/2022 Appointment Laboratory Angélica Royal P.A.-C. [address] [place] [phone] 07/31/2022 Appointment Laboratory Angélica Royal P.A.-C. [address] [place] [phone] 08/14/2022 Appointment Laboratory Angélica Royal P.A.-C. [address] [place] [phone] 08/28/2022 Appointment Laboratory Angélica Royal P.A.-C. [address] [place] [phone] documented as of this encounter Visit Diagnoses Diagnosis Transplant Liver (HCC) - Primary Medication Therapy Correction Not Anticoa gulant documented in this encounter Additional Health Concerns Assessment Noted Time PHQ-9 Depression Total Score: 5 03/02/2019 10:51 AM CD T documented as of this encounter Care Teams Supervisor Picking Crew Relationship Specialty Start Date End Date Elsewhere, Pcp PCP - General Family Medicine 07/29/17 documented as of this encounter
--- OUTSIDE RECORDS SUMMARY | 2022-05-17 18:56 | XMS_ITS | Encounter Summary ---
:1955 Author Organization [facility] Address [address] [place] [address] Care Team Providers Name Role Phone Elsewhere, Pcp Primary Care Provider Unavailable Reason for Referral Outpatient (Routine) - Closed Specialty Diagnoses / Procedures Referred By Contact Refer red To Contact Nephrology and [facility] Hypertension Sada Hobson [address] [place] [phone] Referral ID Status Reason Start Date Expiration Date Visits Requ ested Visits Authorized [id number] Closed 11/17/2019 11/16/2020 1 1 Reason for Visit Appointment Request (Routine) - Closed Specialty Diagnoses / Procedures Referred By Contact Refer red To Contact Nephkanu and Anatoliy Bailey M.D. 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 Interstitial fibrosis with tubular atrophy affects approximately [...] me again in 6 months Contact number: [phone] Joce Bailey M.D. documented in this encounter Plan of Treatment Upcoming Encounters Date Type Specialty Care Team Description 05/22/2022 Appointment Laboratory Medicine Angélica Granger P.A.-C. [address] [place] [phone] 05/23/2022 Clinical Admitting/Central Communication Scheduling 05/27/2022 Comprehensive Visit Orthopedic Surgery Markus Sams M.D., Ph.D. [address] [place] [phone] 05/29/2022 Office Visit Otorhinolaryngology Dex Matta APRN, C.N.P., M.S.N. [address] [place] [phone] 05/29/2022 Office Visit Otorhinolaryngology Nadeem Maradiaga, Jennifer., M.S. [address] [place] [phone] 05/31/2022 Appointment Radiology Guilherme Matt, RASTA, Edmundo, M.S. [address] [place] [phone] 06/05/2022 Appointment Laboratory Medicine Angélica Granger P.A.-C. [address] [place] [address] [phone] 06/19/2022 Appointment Laboratory Medicine Angélica Granger P.A.-C. [address] [place] [phone] 07/03/2022 Appointment Laboratory Medicine Angélica Granger P.A.-C. [address] [place] [phone] 07/17/2022 Appointment Laboratory Medicine Angélica Granger P.A.-C. [address] [place] [phone] 07/31/2022 Appointment Laboratory Medicine Angélica Granger P.A.-C. [address] [place] [phone] 08/14/2022 Appointment Laboratory Medicine Angélica Granger P.A.-C. [address] [place] [phone] 08/28/2022 Appointment Laboratory Medicine Angélica Granger P.A.-C. [address] [place] [address] Scheduled Referrals Name Type Priority Associated Order Schedule Diagnoses Nephrology and Outpatient Referral Routine Expect ed: Hypertension office 05/19/20 20 visit (clinic) (Approximate) , Expires: 11/16/2022 documented as of this encounter Results (ABNORMAL) Albumin, Random, Urine (05/02/2020 10:45 AM DRAGGER) Patholo gist Method Time Signature Microalbumin 1213.0 mg/L 05/02/2020 [facility] 3:01 PM DRAGGER Creatinine 71 mg/dL 05/02/2020 [facility] 2:35 PM DRAGGER Albumin/Creatinin 1708 (H) <17 mg/g 05/02/2020 [facility] e Ratio 3:01 PM DRAGGER Specimen Anatomical Collection Method Collection Time Receive d Time (Source) Location / / Volume Laterality Urine (Urine, 05/02/2020 10:45 05/02/2020 1:43 Voided) AM DRAGGER PM DRAGGER Joce Bailey M.D. LAB URINE ORDERABLES Performing Organization Address City/State/ZIP Code Phon e Number [facility]- [address] [place] [address] [place] [address] System in [place] [address] (ABNORMAL) Urinalysis with Microscopic: Urine, Voided (05/02/2020 10:45 AM DRAGGER) P athologist Signature Source Midstream 05/02/2020 FB60 11:03 AM DRAGGER Clarity Clear Clear 05/02/2020 FB60 11:03 AM DRAGGER Color Yellow 05/02/2020 FB60 11:03 AM DRAGGER Comment: ----REFERENCE VALUE---- Colorless Yellow Bhakti Blood Small (A) Negative 05/02/2020 11:03 AM DRAGGER FB60 Nitrite Negative Negative 05/02/2020 11:03 AM DRAGGER FB60 Leukocyte Esterase Negative Negative 05/02/2020 11:[address] FB60 Protein >=300 (A) mg/dL 05/02/2020 11:03 AM DRAGGER FB60 Comment: ----REFERENCE VALUE---- Negative Trace Glucose Negative Negative mg/dL 05/02/2020 11:03 AM DRAGGER F B60 Ketones, QI(U) Negative Negative mg/dL 05/02/2020 11:03 AM DRAGGER FB60 Bilirubin Negative Negative 05/02/2020 11:03 AM DRAGGER FB60 pH 7.0 5.0 - 8.0 05/02/2020 11:03 AM DRAGGER FB60 Specific [place] 1.020 1.001 - 1.035 05/02/2020 11:03 AM DRAGGER FB60 Urobilinogen 0.2 0.2 - 1.0 mg/dL 05/02/2020 11:[address] FB60 White Blood Cells None Seen /hpf 05/02/2020 11:03 AM CS T FB60 Comment: ----REFERENCE VALUE---- Males: 0-3 Females: 0-10 Unknown: 0-10 Red Blood Cells 3-10 (A) 0 - 2 /hpf 05/02/2020 11:03 AM DRAGGER FB60 Dysmorphic Red Blood Cells <=25 <=25 % 05/02/2020 11 :03 AM DRAGGER FB60 Hyaline Casts Occasional /lpf 05/02/2020 11:03 AM DRAGGER F B60 Specimen Anatomical Collection Method Collection Time Receive d Time (Source) Location / / Volume Laterality Urine (Urine, 05/02/2020 10:45 05/02/2020 Voided) AM DRAGGER 10:45 AM DRAGGER Joce Bailey M.D. LAB URINE ORDERABLES Performing Organization Address City/State/ZIP Code Phon e Number [address] [place] [address] [facility] [place] [address] 25-Hydroxyvitamin D2 and D3 (05/02/2020 10:40 AM DRAGGER) athologist Signature 25-Hydroxy D2 <4.0 ng/mL 05/04/2020 [facility] 12:47 PM DRAGGER 25-Hydroxy D3 48 ng/mL 05/04/2020 [facility] 12:47 PM DRAGGER 25-Hydroxy D 48 ng/mL 05/04/2020 [facility] Total 12:47 PM DRAGGER Comment: ----REFERENCE VALUE---- 25-HYDROXY D TOTAL (D2+D3) [...] (Blood, 05/02/2020 10:40 05/03/2020 7:45 Venous) AM DRAGGER AM DRAGGER Joce Bailey M.D. LAB BLOOD ADD-ON Performing Organization Address City/State/ZIP Code Phon e Number [facility] [address] [place] [address] [place] [address] Laboratory Medicine and Pathology [address] [place] [address] Dr. MURILLO (ABNORMAL) Uric Acid (05/02/2020 10:40 AM DRAGGER) P athologist Signature Uric Acid, P 8.7 (H) 3.7 - 8.0 05/02/2020 [facility] mg/dL 4:17 PM DRAGGER Specimen Anatomical Collection Method Collection Time Receive d Time (Source) Location / / Volume Laterality Blood (Blood, 05/02/2020 10:40 05/02/2020 4:04 Venous) AM DRAGGER PM DRAGGER Joce Bailey M.D. LAB BLOOD ADD-ON Performing Organization Address City/State/ZIP Code Phon e Number [facility]- [address] [place] [address] [facility] [place] [address] [facility] [address] (ABNORMAL) Parathyroid Hormone (PTH) (05/02/2020 10:40 AM DRAGGER) Analysis Performed At Patho logist Time Signature Parathyroid 135 (H) 15 - 65 05/02/2020 [facility] Hormone (PTH), S pg/mL 5:07 PM DRAGGER Comment: Biotin has been identified by the [facility] as a potential interfering substance. ??Higher concentr ations of biotin may be found in multivitamins, hair/nail supple ments, and workout supplements. ??If the result does not ma [facility] clinical observations, repeat testing after patient refrains fr om the use of supplements for at least 12 hours. Specimen Anatomical Collection Method Collection Time Receive d Time (Source) Location / / Volume Laterality Blood (Blood, 05/02/2020 10:40 05/02/2020 4:04 Venous) AM DRAGGER PM DRAGGER Joce Bailey M.D. LAB BLOOD ADD-ON Performing Organization Address City/State/ZIP Code Phon e Number [facility]- [address] [place] [address] [facility] [place] [id number] [place] [address] (ABNORMAL) Magnesium (05/02/2020 10:40 AM DRAGGER) P athologist Signature Magnesium, P 2.9 (H) 1.7 - 2.3 05/02/2020 [facility] mg/dL 2:28 PM DRAGGER Specimen Anatomical Collection Method Collection Time Receive d Time (Source) Location / / Volume Laterality Blood (Blood, 05/02/2020 10:40 05/02/2020 1:49 Venous) AM DRAGGER PM DRAGGER Joce Bailey M.D. LAB BLOOD ADD-ON Performing Organization Address City/State/ZIP Code Phon e Number [facility]- [address] [place] [address] [place] [address] System in [place] [address] Lipid Panel (05/02/2020 10:40 AM DRAGGER) P athologist Signature Cholesterol, 163 mg/dL 05/02/2020 [facility] Total 2:28 PM DRAGGER Comment: ----REFERENCE VALUE---- Desirable: < 200 Borderline high: 200 - 239 High: > or = 240 Triglycerides 145 mg/dL 05/02/2020 2:28 PM DRAGGER OWA T Comment: ----REFERENCE VALUE---- Normal: <150 Borderline high: 150-199 High: 200-499 Very high: > or =500 Cholesterol, HDL 42 >=40 mg/dL 05/02/2020 2:28 PM DRAGGER OWAT Calculated LDL 92 mg/dL 05/02/2020 2:28 PM DRAGGER OW AT Comment: ----REFERENCE VALUE---- Desirable: <100 Above Desirable: 100-129 Borderline high: 130-159 High: 160-189 Very high: > or =190 Cholesterol, Non-HDL, Calculated 121 mg/dL 020 2:28 PM DRAGGER OW[place] Comment: ----REFERENCE VALUE---- Desirable: <130 Above Desirable: 130-159 Borderline high: 160-189 High: 190-219 Very high: > or =220 Specimen Anatomical Collection Method Collection Time Receive d Time (Source) Location / / Volume Laterality Blood (Blood, 05/02/2020 10:40 05/02/2020 1:49 Venous) AM DRAGGER PM DRAGGER Joce Bailey M.D. LAB BLOOD ADD-ON Performing Organization Address City/State/ZIP Code Phon e Number [facility]- [address] [place] [address] [place] [address] System in [place] [address] [facility] (ABNORMAL) Cystatin C with Estimated GFR, S (05/02/2020 10:40 AM DRAGGER) P athologist Signature eGFR by 13 >60 05/03/2020 [facility] Cystatin C mL/min/BSA 7:49 AM DRAGGER Comment: ----ADDITIONAL INFORMATION---- Cystatin C-based eGFR may differ substan tially from creatinine-based eGFR in patients with a bnormal muscle mass or acutely changing renal function. ??Pl ease interpret together with relevant clinical features. Cystatin C, S 3.77 (H) 0.77 - 1.42 mg/L 05/03/2020 7:49 AM DRAGGER DAVE Specimen Anatomical Collection Method Collection Time Receive d Time (Source) Location / / Volume Laterality Blood (Blood, 05/02/2020 10:40 05/03/2020 6:57 Venous) AM DRAGGER AM DRAGGER Joce Bailey M.D. LAB BLOOD ADD-ON Performing Organization Address City/State/ZIP Code Phon e Number [facility] [address] [place] [address] [facility] [place] [address] [facility] [address] (ABNORMAL) Renal Function Panel (05/02/2020 10:40 AM DRAGGER) Analysis Performed At Patho logist Time Signature Potassium, P 3.6 3.6 - 5.2 05/02/2020 [facility] mmol/L 2:28 PM DRAGGER Sodium, P 136 135 - 145 05/02/2020 [facility] mmol/L 2:28 PM DRAGGER Chloride, P 99 98 - 107 05/02/2020 [facility] mmol/L 2:28 PM DRAGGER Bicarbonate, P 26 22 - 29 05/02/2020 [facility] mmol/L 2:28 PM DRAGGER Anion Gap, P 11 7 - 15 05/02/2020 [place] 2:28 PM DRAGGER BUN (Blood Urea 69 (H) 8 - 24 05/02/2020 [facility] Nitrogen), P mg/dL 2:28 PM DRAGGER Creatinine 3.22 (H) 0.74 - 05/02/2020 [facility] 1.35 mg/dL 2:28 PM DRAGGER eGFR-Black/Afri 22 (L) >=60 05/02/2020 [facility] can [place] mL/min/BSA 2:28 PM DRAGGER Comment: ----ADDITIONAL INFORMATION---- Estimated GFR calculated using the 2009 CKD_EPI creatinine equation. eGFR Non-Black/ 19 (L) >=60 mL/min/BSA 05/02/2020 2:28 PM DRAGGER OWAT [place] Comment: ----ADDITIONAL INFORMATION---- Estimated GFR calculated using the 2009 CKD_EPI creatinine equation. Calcium, Total, P 8.5 (L) 8.8 - 10.2 mg/dL 05/02/2020 2:28 PM DRAGGER OW[place] Glucose, P 189 (H) 70 - 140 mg/dL 05/02/2020 2:28 PM DRAGGER O YAO Albumin, P 3.9 3.5 - 5.0 g/dL 05/02/2020 2:28 PM DRAGGER O YAO Phosphorus (Inorganic), P 4.1 2.5 - 4.5 mg/dL 05/02/20 20 4:17 PM DRAGGER [facility] Specimen Anatomical Collection Method Collection Time Receive d Time (Source) Location / / Volume Laterality Blood (Blood, 05/02/2020 10:40 05/02/2020 1:49 Venous) AM DRAGGER PM DRAGGER Narrative [facility] - 05/02/2020 4:17 PM DRAGGER Specimen Information: Specimen ID: [id number] Specimen Type: Blood Specimen Collection Start Date: 020 10:40 AM Specimen Received Date: 05/02/2020 ??1: 49 PM Specimen ID: [id number] Specimen Type: Blood Specimen Collection Start Date: 020 10:40 AM Specimen Received Date: 05/02/2020 ??4: 04 PM Joce Bailey M.D. LAB BLOOD ADD-ON Performing Organization Address City/[facility]/ZIP Code Phon e Number [facility]- [address] [place] [address] [place] [address] System in [place] [address] [place] [address] [facility] [address] Ferritin (05/02/2020 10:40 AM DRAGGER) P athologist Signature Ferritin, S 167 31 - 409 05/02/2020 [facility] mcg/L 2:19 PM DRAGGER Comment: Biotin has been identified by the [facility] as a potential interfering substance. ??Higher concentr ations of biotin may be found in multivitamins, hair/nail supple ments, and workout supplements. ??If the result does not ma [facility] clinical observations, repeat testing after patient refrains fr om the use of supplements for at least 12 hours. Specimen Anatomical Collection Method Collection Time Receive d Time (Source) Location / / Volume Laterality Blood (Blood, 05/02/2020 10:40 05/02/2020 1:49 Venous) AM DRAGGER PM DRAGGER Joce Bailey M.D. LAB BLOOD ADD-ON Performing Organization Address City/State/ZIP Code Phon e Number [facility] [address] [place] [address] [place] [address] System in [place] [address] Iron and Total Iron-Binding Capacity (05/02/2020 10:40 AM DRAGGER) P athologist Signature Iron 115 50 - 150 05/02/2020 [facility] mcg/dL 4:18 PM DRAGGER Total Iron 255 250 - 400 05/02/2020 [facility] Binding Capacity mcg/dL 4:18 PM DRAGGER Percent 45 14 - 50 % 05/02/2020 [facility] Saturation 4:18 PM DRAGGER Specimen Anatomical Collection Method Collection Time Receive d Time (Source) Location / / Volume Laterality Blood (Blood, 05/02/2020 10:40 05/02/2020 4:04 Venous) AM DRAGGER PM DRAGGER Joce Bailey M.D. LAB BLOOD ADD-ON Performing Organization Address City/State/ZIP Code Phon e Number [facility]- [address] [place] [address] [facility] [place], [place] [phone] [place] [address] (ABNORMAL) CBC with Differential, Blood (05/02/2020 10:40 AM DRAGGER) Patholo gist Method Time Signature Hemoglobin 11.5 (L) 13.2 - 05/02/2020 FB60 16.6 g/dL 10:45 AM DRAGGER Hematocrit 34.9 (L) 38.3 - 05/02/2020 FB60 48.6 % 10:45 AM DRAGGER Erythrocytes 3.88 (L) 4.35 - 05/02/2020 FB60 5.65 10:45 AM DRAGGER x10(12)/L MCV 89.9 78.2 - 05/02/2020 FB60 97.9 fL 10:45 AM DRAGGER RBC Distrib Width 13.0 11.8 - 05/02/2020 FB60 14.5 % 10:45 AM DRAGGER Platelet Count 206 135 - 317 05/02/2020 FB60 x10(9)/L 10:45 AM DRAGGER Leukocytes 3.6 3.4 - 9.6 05/02/2020 FB60 x10(9)/L 10:45 AM DRAGGER Neutrophils 1.95 1.56 - 05/02/2020 FB60 6.45 10:45 AM DRAGGER x10(9)/L Lymphocytes 1.04 0.95 - 05/02/2020 FB60 3.07 10:45 AM DRAGGER x10(9)/L Monocytes 0.45 0.26 - 05/02/2020 FB60 0.81 10:45 AM DRAGGER x10(9)/L Eosinophils 0.10 0.03 - 05/02/2020 FB60 0.48 10:45 AM DRAGGER x10(9)/L Basophils 0.01 0.01 - 05/02/2020 FB60 0.08 10:45 AM DRAGGER x10(9)/L Specimen Anatomical Collection Method Collection Time Receive d Time (Source) Location / / Volume Laterality Blood (Blood, 05/02/2020 10:40 05/02/2020 Venous) AM DRAGGER 10:40 AM DRAGGER Joce Bailey M.D. LAB BLOOD ADD-ON Performing Organization Address City/State/ZIP Code Phon e Number [facility] [address] [place] [id number] [place] [address] LAB [address]60 [place] [address] [address] documented in this encounter Visit [...] documented as of this encounter Care Teams Cross Country And Track And Field Coach Relationship Specialty Start Date End Date Elsewhere, Pcp PCP - General Family Medicine 07/29/17 documented as of this encounter
--- OUTSIDE RECORDS SUMMARY | 2022-05-17 18:56 | XMS_ITS | Encounter Summary ---
:1955 Author Organization [facility] Address [address] [place] [address] Care Team Providers Name Role Phone Elsewhere, Pcp Primary Care Provider Unavailable Encounter Details Date Type Department Care Team Description 07/26/2019 Clinical Communication Section of Preventive, Rita Garcia and M, R.N. 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 [address] [place] [phone] 05/23/2022 Clinical Admitting/Central Communication Scheduling 05/27/2022 Comprehensive Visit Orthopedic Surgery Markus Sams M.D., Ph.D. [address] [place] [phone] 05/29/2022 Office Visit Otorhinolaryngology Dex Matta, RAMONA, C.N.P., M.S.N. [address] [place] [address] [phone] 05/29/2022 Office Visit Otorhinolaryngology Nadeem Maradiaga, P.A.-C., M.S. [address] [place] [address] [phone] 05/31/2022 Appointment Radiology Guilherme Matt MPAS, P.Murtaza.-Arley., M.S. [address] [place] [phone] 06/05/2022 Appointment Laboratory Medicine Angélica Granger P.A.-C. [address] [place] [phone] 06/19/2022 Appointment Laboratory Medicine Angélica Granger P.A.-C. [address] [place] [phone] 07/03/2022 Appointment Laboratory Medicine Angélica Granger P.A.-C. [address] [place] [phone] 07/17/2022 Appointment Laboratory Medicine Angélica Granger P.A.-C. [address] [place] [phone] 07/31/2022 Appointment Laboratory Medicine Angélica Granger P.A.-C. [address] [place] [phone] 08/14/2022 Appointment Laboratory Medicine Angélica Granger P.A.-C. [address] [place] [phone] 08/28/2022 Appointment Laboratory Medicine Angélica Granger P.A.-C. [address] [place] [phone] documented as of this encounter Visit Diagnoses Not on filedocumented in this encounter Additional Health Concerns Assessment Noted Time PHQ-9 Depression Total Score: 5 03/02/2019 10:51 AM CD T documented as of this encounter Care Teams Monumental Stonemason Relationship Specialty Start Date End Date Elsewhere, Pcp PCP - General Family Medicine 07/29/17 documented as of this encounter
--- OUTSIDE RECORDS SUMMARY | 2022-05-17 18:56 | XMS_ITS | Encounter Summary ---
:1955 Author Organization [facility] Address [address] [place] [address] Care Team Providers Name Role Phone Elsewhere, Pcp Primary Care Provider Unavailable Reason for Visit Reason Comments Med Refill Encounter Details Date Type Department Care Team Description 08/31/2019 [facility] Salvador Camejo, Med Refill Transplantation and Clinical M.D . 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 [address] [place] [phone] 05/23/2022 Clinical Admitting/Central Communication Scheduling 05/27/2022 Comprehensive Visit Orthopedic Surgery Markus Sams M.D., Ph.D. [address] [place] [phone] 05/29/2022 Office Visit Otorhinolaryngology Dex Matta, RAMONA, C.N.P., M.S.N. [address] [place] [phone] 05/29/2022 Office Visit Otorhinolaryngology Nadeem Maradiaga, PEdgar.-Arley., M.S. [address] [place] [phone] 05/31/2022 Appointment Radiology Guilherme Matt MPAS, Jennifer., M.S. [address] [place] [address] [phone] 06/05/2022 Appointment Laboratory Medicine Angélica Granger P.A.-C. [address] [place] [phone] 06/19/2022 Appointment Laboratory Medicine Angélica Granger P.A.-C. [address] [place] [phone] 07/03/2022 Appointment Laboratory Medicine Angélica Granger P.A.-C. [address] [place] [phone] 07/17/2022 Appointment Laboratory Medicine Angélica Granger P.A.-C. [address] [place] [address] [phone] 07/31/2022 Appointment Laboratory Medicine Angélica Granger P.A.-C. [address] [place] [phone] 08/14/2022 Appointment Laboratory Angélica Royal P.A.-C. [address] [place] [phone] 08/28/2022 Appointment Laboratory Angélica Royal P.A.-C. [address] [place] [phone] documented as of this encounter Visit Diagnoses Not on filedocumented in this encounter Additional Health Concerns Assessment Noted Time PHQ-9 Depression Total Score: 5 03/02/2019 10:51 AM CD T documented as of this encounter Care Teams Acls Nurse Relationship Specialty Start Date End Date Elsewhere, Pcp PCP - General Family Medicine 07/29/17 documented as of this encounter
--- OUTSIDE RECORDS SUMMARY | 2022-05-17 18:56 | XMS_ITS | Encounter Summary ---
:1955 Author Organization [facility] Address [address] [place] [address] Care Team Providers Name Role Phone Elsewhere, Pcp Primary Care Provider Unavailable Reason for Visit Reason Onset Date Comments Labs Only 08/19/2019 Encounter Details Date Type Department Care Team Description 08/19/2019 Clinical Communication Curt Taylor, Labs Only Center for Argelia Hernandez R.N., Transplantation and C.C.T.C. 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 Rossi LEVEL GAME DESIGNER Telephone Encounter - Argelia Melendez R.N. - [...] used: nursing clinical judgment and Dr. Rossi LEVEL GAME DESIGNER documented in this encounter Plan of Treatment Upcoming Encounters Date Type Specialty Care Team Description 05/22/2022 Appointment Laboratory Medicine Angélica Granger P.A.-C. [address] [place] [phone] 05/23/2022 Clinical Admitting/Central Communication Scheduling 05/27/2022 Comprehensive Visit Orthopedic Surgery Markus Sams M.D., Ph.D. [address] [place] [phone] 05/29/2022 Office Visit Otorhinolaryngology Dex Matta APRN, C.N.P., M.S.N. [address] [place] [phone] 05/29/2022 Office Visit Otorhinolaryngology Nadeem Maradiaga, P.Murtaza.KelseyC., M.S. [address] [place] [address] [phone] 05/31/2022 Appointment Radiology Guilherme Matt MPAS, PEdgar.Marie., M.S. [address] [place] [phone] 06/05/2022 Appointment Laboratory Medicine Angélica Granger P.A.-C. [address] [place] [phone] 06/19/2022 Appointment Laboratory Medicine Angélica Granger P.A.-C. [address] [place] [address] [phone] 07/03/2022 Appointment Laboratory Medicine Angélica Granger P.A.-C. [address] [place] [address] [phone] 07/17/2022 Appointment Laboratory Medicine Angélica Granger P.A.-C. [address] [place] [address] [phone] 07/31/2022 Appointment Laboratory Medicine Angélica Granger P.A.-C. [address] [place] [address] [phone] 08/14/2022 Appointment Laboratory Medicine Angélica Granger P.A.-C. [address] [place] [address] [phone] 08/28/2022 Appointment Laboratory Medicine Angélica Granger P.A.-C. [address] [place] [address] [phone] documented as of this encounter Visit Diagnoses Not on filedocumented in this encounter Additional Health Concerns Assessment Noted Time PHQ-9 Depression Total Score: 5 03/02/2019 10:51 AM CD T documented as of this encounter Care Teams Hr Intern Relationship Specialty Start Date End Date Elsewhere, Pcp PCP - General Family Medicine 07/29/17 documented as of this encounter
--- OUTSIDE RECORDS SUMMARY | 2022-05-17 18:57 | XMS_ITS | Encounter Summary ---
:1955 Author Organization [facility] Address [address] [place] [address] Care Team Providers Name Role Phone Elsewhere, Pcp Primary Care Provider Unavailable Reason for Visit Reason Comments Med Refill Encounter Details Date Type Department Care Team Description 06/07/2019 Refill Division of Nephrology and Ammon jalloh M.D. 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 [address] [place] [phone] 05/23/2022 Clinical Admitting/Central Communication Scheduling 05/27/2022 Comprehensive Visit Orthopedic Surgery Markus Sams M.D., Ph.D. [address] [place] [phone] 05/29/2022 Office Visit Otorhinolaryngology Dex Matta APRN, C.N.P., M.S.N. [address] [place] [phone] 05/29/2022 Office Visit Otorhinolaryngology Nadeem Maradiaag, P.Murtaza.-Arley., M.S. [address] [place] [address] [phone] 05/31/2022 Appointment Radiology Guilherme Matt MPAS, Jennifer., M.S. [address] [place] [address] [phone] 06/05/2022 Appointment Laboratory Medicine Angélica Granger P.A.-C. [address] [place] [phone] 06/19/2022 Appointment Laboratory Medicine Angélica Granger P.A.-C. [address] [place] [phone] 07/03/2022 Appointment Laboratory Medicine Angélica Granger P.A.-C. [address] [place] [phone] 07/17/2022 Appointment Laboratory Medicine Angélica Granger P.A.-C. [address] [place] [address] [phone] 07/31/2022 Appointment Laboratory Medicine Angélica Granger P.A.-C. [address] [place] [phone] 08/14/2022 Appointment Laboratory Angélica Royal P.A.-C. [address] [place] [phone] 08/28/2022 Appointment Laboratory Angélica Royal P.A.-C. [address] [place] [phone] documented as of this encounter Visit Diagnoses Diagnosis Chronic Kidney Disease Stage 4 Glomerula r Filtration Rate 15-29 (HCC) - Primary documented in this encounter Additional Health Concerns Assessment Noted Time PHQ-9 Depression Total Score: 5 03/02/2019 10:51 AM CD T documented as of this encounter Care Teams Softball Coach Relationship Specialty Start Date End Date Elsewhere, Pcp PCP - General Family Medicine 07/29/17 documented as of this encounter
--- OUTSIDE RECORDS SUMMARY | 2022-05-17 18:57 | XMS_ITS | Encounter Summary ---
:1955 Author Organization [facility] Address [address] [place] [address] Care Team Providers Name Role Phone Elsewhere, Pcp Primary Care Provider Unavailable Reason for Visit Reason Comments Chronic Kidney Disease Outpatient (Routine) - Closed Specialty Diagnoses / Procedures Referred By Contact Refer red To Contact Nephrology and [facility] Hypertension Sada Hobson [address] [place] [address] Referral ID Status Reason Start Date Expiration Date Visits Requ ested Visits Authorized [id number] Closed 03/01/2019 02/29/2020 1 1 Encounter Details Date Type Department Care Team Description 05/13/2019 Comprehensive Visit Division of [facility] Chronic Kidney Disease Stage 4 Glomerular Filtration Rate 15-29 (HCC) (Primary Dx); Nephrology and Sada Hobson Stenosis Renal Artery (HCC) Hypertension in [address] [place], [place] [address] [facility] [address] [place], [place] [phone] (Work) [phone] Social History Tobacco Use Types Packs/Day Years [...] 12/15/2021 organizations such as methodist groups, unions, fradoo or athletic groups, or school groups? 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 Interstitial fibrosis with tubular atrophy affects approximately [...] me again in 3 months Contact number: [phone] Joce Bailey M.D. NG DEMONSTRATOR documented in this encounter Plan of Treatment Upcoming Encounters Date Type Specialty Care Team Description 05/22/2022 Appointment Laboratory Medicine Angélica Granger P.A.-C. [address] [place] [phone] 05/23/2022 Clinical Admitting/Central Communication Scheduling 05/27/2022 Comprehensive Visit Orthopedic Surgery Markus Sams M.D., Ph.D. [address] [place] [phone] 05/29/2022 Office Visit Otorhinolaryngology Dex Matta APRN, C.N.P., M.S.N. [address] [place] [phone] 05/29/2022 Office Visit Otorhinolaryngology Nadeem Maradiaga P.A.-C., M.S. [address] [place] [address] [phone] 05/31/2022 Appointment Radiology Guilherme Matt MPAS, P.A.-C., M.S. [address] [place] [phone] 06/05/2022 Appointment Laboratory Medicine Angélica Granger P.A.-C. [address] [place] [phone] 06/19/2022 Appointment Laboratory Medicine Angélica Granger P.A.-C. [address] [place] [phone] 07/03/2022 Appointment Laboratory Medicine Angélica Granger P.A.-C. [address] [place] [phone] 07/17/2022 Appointment Laboratory Medicine Angélica Granger P.A.-C. [address] [place] [phone] 07/31/2022 Appointment Laboratory Medicine Angélica Granger P.A.-C. [address] [place] [phone] 08/14/2022 Appointment Laboratory Medicine Angélica Granger P.A.-C. [address] [place] [phone] 08/28/2022 Appointment Laboratory Medicine Angélica Granger P.A.-C. [address] [place] [phone] documented as of this encounter Results (ABNORMAL) Albumin, Random, Urine (11/17/2019 9:50 AM CDT) P athologist Signature Albumin, 202.6 mg/L 11/17/2019 DAVE Random, U 10:38 AM CDT Comment: ----ADDITIONAL INFORMATION---- This test has been modified from the man ufacturer's instructions. Its performance characteri stics were determined by [facility] in a manner co nsistent with [...] [facility] - [address] [place] [address] [place] [address] [facility] [address] (ABNORMAL) Urinalysis with Microscopic: Urine, Voided [...] [facility] in a manner co nsistent with [...] [facility] [address] [place], [place] [address] [place] [address] [facility] [address] 25-Hydroxyvitamin D2 and D3 [...] M.D. LAB BLOOD ADD-ON Performing Organization Address City/[facility]/ZIP Code Phon e Number [facility] [address] [place] [address] [place], [place] [address] [facility] [place] [address] Laboratory Medicine and Pathology [address] [...] M.D. LAB BLOOD ADD-ON Performing Organization Address City/[facility] Code Phon e Number [facility] - [address] [place], [place] [address] [place] [phone] [facility] [address] Uric Acid (11/17/2019 9:29 AM CDT) P athologist Signature Uric Acid, S 7.8 3.7 - 8.0 11/17/2019 DTL mg/dL 12:21 PM CDT Specimen Anatomical Collection Method Collection Time Receive d Time (Source) Location / / Volume Laterality Blood (Blood, 11/17/2019 9:29 AM 11/17/19 20 9:49 Venous) CDT AM CDT Joce Bailey M.D. LAB BLOOD ADD-ON Performing Organization Address City/[facility]/ZIP Code Phon e Number [facility] - [address] [place], [place] [address] [place] [address] [facility] [address] [facility] (ABNORMAL) Magnesium (11/17/2019 9:29 AM CDT) athologist [facility] Magnesium, S 2.5 (H) 1.7 - 2.3 11/17/2019 DTL mg/dL 12:21 PM CDT Specimen Anatomical Collection Method Collection Time Receive d Time (Source) Location / / Volume Laterality Blood (Blood, 11/17/2019 9:29 AM 11/17/19 20 9:49 Venous) CDT AM CDT Joce Bailey M.D. LAB BLOOD ADD-ON Performing Organization Address City/[facility]/ZIP [facility] Phon e Number [facility] - [phone] [place] [address] Ferritin (11/17/2019 9:29 AM CDT) athologist [facility] Ferritin, S 84 24 - 336 11/17/2019 DTL mcg/L 12:13 PM CDT Specimen Anatomical Collection Method Collection Time Receive d Time (Source) Location / / Volume Laterality Blood (Blood, 11/17/2019 9:29 AM 11/17/19 20 9:49 Venous) CDT AM CDT Joce Bailey M.D. LAB BLOOD ADD-ON Performing Organization Address City/State/ZIP Code Phon e Number [facility] - [phone] [place] [address] (ABNORMAL) Cystatin C with Estimated GFR, S (11/17/2019 9:29 AM CDT) [facility] e[facility] by 13 >60 11/17/2019 DAVE [...] [facility] - 200 [place], [place] [address] [place] [address] [facility] [address] (ABNORMAL) Renal Function Panel [...] 11/17/2019 DTL Black/ mL/min/BSA 11:37 AM CDT Mauritanian Comment: ----ADDITIONAL INFORMATION---- Estimated GFR calculated using [...] M.D. LAB BLOOD ADD-ON Performing Organization Address City/[facility]/ZIP [facility] Phon e Number [facility] - 200 [place], [place] [address] [place] [address] (ABNORMAL) Iron and Total Iron-Binding Capacity (11/17/2019 [...] M.D. LAB BLOOD ADD-ON Performing Organization Address City/[facility]/ZIP [facility] Phon e Number [facility] - 200 [place], [place] [address] 05 [place] [address] [place] Kidneys with Renal Artery Doppler [...] of this encounter Care Teams Folding Machine Tender Relationship Specialty Start Date End Date Elsewhere, Pcp PCP - General Family Medicine 07/29/17 documented as of this encounter
--- OUTSIDE RECORDS SUMMARY | 2022-05-17 18:57 | XMS_ITS | Encounter Summary ---
:1955 Author Organization [facility] Address [address] [place] [address] Care Team Providers Name Role Phone Elsewhere, Pcp Primary Care Provider Unavailable Encounter Details Date Type Department Care Team Description 04/19/2019 Hospital Encounter Department of Angélica Granger Liver Laboratory Medicine Edmundo Stern (HCC) and Pathology, [address] [place] [address] in [place], [place] [address] [place] [address] [place], [place] (Work) [phone] Social History Tobacco Use Types Packs/Day Years [...] at Date Recorded Male 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 [address] [place] [phone] 05/23/2022 Clinical Admitting/Central Communication Scheduling 05/27/2022 Comprehensive Visit Orthopedic Surgery Markus Sams M.D., Ph.D. [address] [place] [phone] 05/29/2022 Office Visit Otorhinolaryngology Dex Matta APRN, C.N.P., M.S.N. [address] [place] [address] [phone] 05/29/2022 Office Visit Otorhinolaryngology Nadeem Maradiaga, P.Murtaza.-Arley., M.S. [address] [place] [address] [phone] 05/31/2022 Appointment Radiology Guilherme Matt, RASTA, PMaryanne., M.S. [address] [place] [phone] 06/05/2022 Appointment Laboratory Medicine Angélica Granger P.A.-C. [address] [place] [address] [phone] 06/19/2022 Appointment Laboratory Medicine Angélica Granger P.A.-C. [address] [place] [phone] 07/03/2022 Appointment Laboratory Medicine GunAngélica wilcox P.A.-C. [address] [place] [phone] 07/17/2022 Appointment Laboratory Medicine Angélica Granger P.A.-C. [address] [place] [phone] 07/31/2022 Appointment Laboratory Medicine Angélica Granger P.A.-C. [address] [place] [phone] 08/14/2022 Appointment Laboratory Medicine Angélica Granger P.A.-C. [address] [place] [phone] 08/28/2022 Appointment Laboratory Medicine Angélica Granger P.A.-C. [address] [place] [phone] documented as of this encounter Visit Diagnoses Diagnosis Transplant Liver (HCC) documented in this encounter Additional Health Concerns Assessment Noted Time PHQ-9 Depression Total Score: 5 03/02/2019 10:51 AM CD T documented as of this encounter Care Teams Garage Door Installer Relationship Specialty Start Date End Date Elsewhere, Pcp PCP - General Family Medicine 07/29/17 documented as of this encounter
--- OUTSIDE RECORDS SUMMARY | 2022-05-17 18:57 | XMS_ITS | Encounter Summary ---
:1955 Author Organization [facility] Address [address] [place] [address] Care Team Providers Name Role Phone Elsewhere, Pcp Primary Care Provider Unavailable Encounter Details Date Type Department Care Team Description 04/09/2019 Hospital Encounter Department of Angélica Granger ant Liver (HCC); Laboratory Medicine J PDemetriusADurgaC. 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 [address] [place] [phone] 05/23/2022 Clinical Admitting/Central Communication Scheduling 05/27/2022 Comprehensive Visit Orthopedic Surgery Markus Sams M.D., Ph.D. [address] [place] [phone] 05/29/2022 Office Visit Otorhinolaryngology Dex Matta APRN, C.N.P., M.S.N. [address] [place] [address] [phone] 05/29/2022 Office Visit Otorhinolaryngology Nadeem Maradiaga, Jennifer., M.S. [address] [place] [phone] 05/31/2022 Appointment Radiology Guilherme Matt MPAS, Jennifer., M.S. [address] [place] [phone] 06/05/2022 Appointment Laboratory Medicine Angélica Granger P.A.-C. [address] [place] [address] [phone] 06/19/2022 Appointment Laboratory Medicine Angélica Granger P.A.-C. [address] [place] [phone] 07/03/2022 Appointment Laboratory Medicine Angélica Granger P.A.-C. [address] [place] [phone] 07/17/2022 Appointment Laboratory Medicine Angélica Granger P.A.-C. [address] [place] [phone] 07/31/2022 Appointment Laboratory Medicine Angélica Granger P.A.-C. [address] [place] [phone] 08/14/2022 Appointment Laboratory Medicine Angélica Granger P.A.-C. [address] [place] [phone] 08/28/2022 Appointment Laboratory Medicine Angélica Granger P.A.-C. [address] [place] [phone] documented as of this encounter Visit Diagnoses Diagnosis Transplant Liver (HCC) Medication Therapy Retirement Not Anticoa gulant documented in this encounter Additional Health Concerns Assessment Noted Time PHQ-9 Depression Total Score: 5 03/02/2019 10:51 AM CD T documented as of this encounter Care Teams Willow Worker Relationship Specialty Start Date End Date Elsewhere, Pcp PCP - General Family Medicine 07/29/17 documented as of this encounter
--- OUTSIDE RECORDS SUMMARY | 2022-05-17 18:57 | XMS_ITS | Encounter Summary ---
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 [address] [place] [phone] 05/23/2022 Clinical Admitting/Central Communication Scheduling 05/27/2022 Comprehensive Visit Orthopedic Surgery Markus Sams M.D., Ph.D. [address] [place] [phone] 05/29/2022 Office Visit Otorhinolaryngology Dex Matta, RAMONA, C.N.P., M.S.N. [address] [place] [phone] 05/29/2022 Office Visit Otorhinolaryngology Nadeem Maradiaga, PEdgar.Marie., M.S. [address] [place] [phone] 05/31/2022 Appointment Radiology Guilherme Matt, RASTA, Jennifer., M.S. [address] [place] [phone] 06/05/2022 Appointment Laboratory Medicine Angélica Granger P.A.-C. [address] [place] [phone] 06/19/2022 Appointment Laboratory Medicine Angélica Granger P.A.-C. [address] [place] [phone] 07/03/2022 Appointment Laboratory Medicine Angélica Granger P.A.-C. [address] [place] [phone] 07/17/2022 Appointment Laboratory Medicine Angélica Granger P.A.-C. [address] [place] [phone] 07/31/2022 Appointment Laboratory Medicine Angélica Granger P.A.-C. [address] [place] [phone] 08/14/2022 Appointment Laboratory Medicine Angélica Granger P.A.-C. [address] [place] [phone] 08/28/2022 Appointment Laboratory Angélica Royal P.A.-C. [address] [place] [phone] documented as of this encounter Visit Diagnoses Diagnosis Hypertension Essential Primary documented in this encounter Additional Health Concerns Assessment Noted Time PHQ-9 Depression Total Score: 5 03/02/2019 10:51 AM CD T documented as of this encounter Care Teams Aircraft Engine Mechanic Overhaul Relationship Specialty Start Date End Date Elsewhere, Pcp PCP - General Family Medicine 07/29/17 documented as of this encounter
--- OUTSIDE RECORDS SUMMARY | 2022-05-17 18:57 | XMS_ITS | Encounter Summary ---
:1955 Author Organization [facility] Address [address] [place] [address] Care Team Providers Name Role Phone Elsewhere, Pcp Primary Care Provider Unavailable Encounter Details Date Type Department Care Team Description 04/14/2019 Clinical Communication Angélica Ching Glidden for J, P.A.-C. 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 [address] [place] [phone] 05/23/2022 Clinical Admitting/Central Communication Scheduling 05/27/2022 Comprehensive Visit Orthopedic Surgery Markus Sams M.D., Ph.D. [address] [place] [phone] 05/29/2022 Office Visit Otorhinolaryngology Dex Matta APRN, C.N.P., M.S.N. [address] [place] [phone] 05/29/2022 Office Visit Otorhinolaryngology Nadeem Maradiaga, P.Murtaza.-Arley., M.S. [address] [place] [address] [phone] 05/31/2022 Appointment Radiology Guilherme Matt MPAS, Jennifer., M.S. [address] [place] [phone] 06/05/2022 Appointment Laboratory Medicine Angélica Granger P.A.-C. [address] [place] [phone] 06/19/2022 Appointment Laboratory Medicine Angélica Granger P.A.-C. [address] [place] [phone] 07/03/2022 Appointment Laboratory Medicine Angélica Granger P.A.-C. [address] [place] [phone] 07/17/2022 Appointment Laboratory Medicine Angélica Granger P.A.-C. [address] [place] [phone] 07/31/2022 Appointment Laboratory Medicine Angélica Granger P.A.-C. [address] [place] [phone] 08/14/2022 Appointment Laboratory Medicine Angélica Granger P.A.-C. [address] [place] [phone] 08/28/2022 Appointment Laboratory Angélica Royal P.A.-C. [address] [place] [phone] documented as of this encounter Visit Diagnoses Diagnosis Transplant Liver (HCC) - Primary documented in this encounter Additional Health Concerns Assessment Noted Time PHQ-9 Depression Total Score: 5 03/02/2019 10:51 AM CD T documented as of this encounter Care Teams Photography Coordinator Relationship Specialty Start Date End Date Elsewhere, Pcp PCP - General Family Medicine 07/29/17 documented as of this encounter
--- OUTSIDE RECORDS SUMMARY | 2022-05-17 18:57 | XMS_ITS | Encounter Summary ---
:1955 Author Organization [facility] Address [address] [place] [address] Care Team Providers Name Role Phone Elsewhere, Pcp Primary Care Provider Unavailable Encounter Details Date Type Department Care Team Description 04/19/2019 Hospital Encounter Department of Angélica Granger Liver Laboratory Medicine Edmundo Stern (HCC) and Pathology, [address] [place] [address] in [place], [place] [address] [place] [address] [place], [place] (Work) [phone] Social History Tobacco Use Types Packs/Day Years [...] Date Recorded Male 05/16/2020 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 [address] [place] [phone] 05/23/2022 Clinical Admitting/Central Communication Scheduling 05/27/2022 Comprehensive Visit Orthopedic Surgery Markus Sams M.D., Ph.D. [address] [place] [phone] 05/29/2022 Office Visit Otorhinolaryngology Dex Matta APRN, C.N.P., M.S.N. [address] [place] [address] [phone] 05/29/2022 Office Visit Otorhinolaryngology Nadeem Maradiaga, P.Murtaza.-Arley., M.S. [address] [place] [address] [phone] 05/31/2022 Appointment Radiology Guilherme Matt, RASTA, PMaryanne., M.S. [address] [place] [phone] 06/05/2022 Appointment Laboratory Medicine Angélica Granger P.A.-C. [address] [place] [address] [phone] 06/19/2022 Appointment Laboratory Medicine Angélica Granger P.A.-C. [address] [place] [phone] 07/03/2022 Appointment Laboratory Medicine GunAngélica wilcox P.A.-C. [address] [place] [phone] 07/17/2022 Appointment Laboratory Medicine Angélica Granger P.A.-C. [address] [place] [phone] 07/31/2022 Appointment Laboratory Medicine Angélica Granger P.A.-C. [address] [place] [phone] 08/14/2022 Appointment Laboratory Medicine Angélica Granger P.A.-C. [address] [place] [phone] 08/28/2022 Appointment Laboratory Medicine Angélica Granger P.A.-C. [address] [place] [phone] documented as of this encounter Visit Diagnoses Diagnosis Transplant Liver (HCC) documented in this encounter Additional Health Concerns Assessment Noted Time PHQ-9 Depression Total Score: 5 03/02/2019 10:51 AM CD T documented as of this encounter Care Teams Ingot Passer Relationship Specialty Start Date End Date Elsewhere, Pcp PCP - General Family Medicine 07/29/17 documented as of this encounter
--- OUTSIDE RECORDS SUMMARY | 2022-05-17 18:57 | XMS_ITS | Encounter Summary ---
:1955 Author Organization [facility] Address [address] [place] [address] Care Team Providers Name Role Phone Elsewhere, Pcp Primary Care Provider Unavailable Reason for Referral Outpatient (Routine) - Closed Specialty Diagnoses / Procedures Referred By Contact Refer red To Contact Nutrition Diagnoses Chronic Kidney Disease Stage 4 Glomerular Filtration Rate 15-29 (HCC) Joce Bailey M.D. [address] [phone] Referral ID Status Reason Start Date Expiration Date Visits Requ ested Visits Authorized [id number] Closed 05/04/2019 05/03/2020 1 1 RIBUTION SYSTEMS SERVICEPERSON Encounter Details Date Type Department Care Team Description 05/04/2019 Clinical Communication Division of Nephrology Joel monae, and Hypertension in [place] Hobson [address] [place] [phone] Social History Tobacco Use Types Packs/Day Years [...] 12/15/2021 organizations such as christian groups, unions, [employer] or athletic groups, or school groups? 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 - 05/04/2019 12:53 PM DISTRIBUTION SYSTEMS SERVICEPERSON I ordered director of religious life consult for him RIBUTION SYSTEMS SERVICEPERSON Telephone Encounter - Jennifer Hansen - 05/04/2019 11:01 AM CST Mr. Singh is calling today wondering if he can see a director of religious life here in Nephrology for his CKD. Would you be willing to order this for the patient prior to his appt so he can try to do it the same day? Thank you. RIBUTION SYSTEMS SERVICEPERSON documented in this encounter Plan of Treatment Upcoming Encounters Date Type Specialty Care Team Description 05/22/2022 Appointment Laboratory Medicine Angélica Granger P.A.-C. [address] [place] [phone] 05/23/2022 Clinical Admitting/Central Communication Scheduling 05/27/2022 Comprehensive Visit Orthopedic Surgery Markus Sams M.D., Ph.D. [address] [place] [phone] 05/29/2022 Office Visit Otorhinolaryngology Dex Matta APRN C.N.P., M.S.N. [address] [place] [phone] 05/29/2022 Office Visit Otorhinolaryngology Nadeem Maradiaga, Jennifer., M.S. [address] [place] [phone] 05/31/2022 Appointment Radiology Guilherme Matt MPAS, Jennifer., M.S. [address] [place] [phone] 06/05/2022 Appointment Laboratory Medicine Angélica Granger P.A.-C. [address] [place] [phone] 06/19/2022 Appointment Laboratory Medicine Angélica Granger P.A.-C. [address] [place] [phone] 07/03/2022 Appointment Laboratory Medicine Angélica Granger P.A.-C. [address] [place] [phone] 07/17/2022 Appointment Laboratory Medicine Angélica Granger P.A.-C. [address] [place] [phone] 07/31/2022 Appointment Laboratory Medicine Angélica Granger P.A.-C. [address] [place] [phone] 08/14/2022 Appointment Laboratory Medicine Angélica Granger P.A.-C. [address] [place] [phone] 08/28/2022 Appointment Laboratory Medicine Angélica Granger P.A.-C. [address] [place] [phone] Scheduled Referrals Name Type Priority Associated Order [...] as of this encounter Care Teams School Childcare Attendant Relationship Specialty Start Date End Date Elsewhere, Pcp PCP - General Family Medicine 07/29/17 documented as of this encounter
--- OUTSIDE RECORDS SUMMARY | 2022-05-17 18:57 | XMS_ITS | Encounter Summary ---
:1955 Author Organization [facility] Address [address] [place] [address] Care Team Providers Name Role Phone Elsewhere, Pcp Primary Care Provider Unavailable Encounter Details Date Type Department Care Team Description 04/09/2019 Hospital Encounter Department of Angélica Granger ant Liver (HCC); Laboratory Medicine J PDemetriusADurgaC. 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 [address] [place] [phone] 05/23/2022 Clinical Admitting/Central Communication Scheduling 05/27/2022 Comprehensive Visit Orthopedic Surgery Markus Sams M.D., Ph.D. [address] [place] [phone] 05/29/2022 Office Visit Otorhinolaryngology Dex Matta APRN, C.N.P., M.S.N. [address] [place] [address] [phone] 05/29/2022 Office Visit Otorhinolaryngology Nadeem Maradiaga, Jennifer., M.S. [address] [place] [phone] 05/31/2022 Appointment Radiology Guilherme Matt MPAS, Jennifer., M.S. [address] [place] [phone] 06/05/2022 Appointment Laboratory Medicine Angélica Granger P.A.-C. [address] [place] [address] [phone] 06/19/2022 Appointment Laboratory Medicine Angélica Granger P.A.-C. [address] [place] [phone] 07/03/2022 Appointment Laboratory Medicine Angélica Granger P.A.-C. [address] [place] [phone] 07/17/2022 Appointment Laboratory Medicine Angélica Granger P.A.-C. [address] [place] [phone] 07/31/2022 Appointment Laboratory Medicine Angélica Granger P.A.-C. [address] [place] [phone] 08/14/2022 Appointment Laboratory Medicine Angélica Granger P.A.-C. [address] [place] [phone] 08/28/2022 Appointment Laboratory Medicine Angélica Granger P.A.-C. [address] [place] [phone] documented as of this encounter Visit Diagnoses Diagnosis Transplant Liver (HCC) Medication Therapy Half-Way Not Anticoa gulant documented in this encounter Additional Health Concerns Assessment Noted Time PHQ-9 Depression Total Score: 5 03/02/2019 10:51 AM CD T documented as of this encounter Care Teams Advanced Manufacturing Engineer Relationship Specialty Start Date End Date Elsewhere, Pcp PCP - General Family Medicine 07/29/17 documented as of this encounter
--- OUTSIDE RECORDS SUMMARY | 2022-05-17 18:57 | XMS_ITS | Encounter Summary ---
:1955 Author Organization [facility] Address [address] [place] [address] Care Team Providers Name Role Phone Elsewhere, Pcp Primary Care Provider Unavailable Encounter Details Date Type Department Care Team Description 05/13/2019 Documentation Division of Nephrology and Florence Wren, Hypertension in [place], Ph.D. 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 LE FURNACE TENDER documented in this encounter Plan of Treatment Upcoming Encounters Date Type Specialty Care Team Description 05/22/2022 Appointment Laboratory Medicine Angélica Granger P.A.-C. [address] [place] [phone] 05/23/2022 Clinical Admitting/Central Communication Scheduling 05/27/2022 Comprehensive Visit Orthopedic Surgery Markus Sams M.D., Ph.D. [address] [place] [phone] 05/29/2022 Office Visit Otorhinolaryngology Dex Matta APRN CDemetriusNJuan Miguel, M.S.N. [address] [place] [phone] 05/29/2022 Office Visit Otorhinolaryngology Nadeem Maradiaga, Jennifer., M.S. [address] [place] [phone] 05/31/2022 Appointment Radiology Guilherme Matt, RASTA, Edmundo, M.S. [address] [place] [phone] 06/05/2022 Appointment Laboratory Medicine Angélica Granger P.A.-C. [address] [place] [phone] 06/19/2022 Appointment Laboratory Medicine Angélica Granger P.A.-C. [address] [place] [phone] 07/03/2022 Appointment Laboratory Medicine Angélica Granger P.A.-C. [address] [place] [phone] 07/17/2022 Appointment Laboratory Medicine Angélica Granger P.A.-C. [address] [place] [phone] 07/31/2022 Appointment Laboratory Medicine Angélica Granger P.A.-C. [address] [place] [phone] 08/14/2022 Appointment Laboratory Medicine Angélica Granger P.A.-C. [address] [place] [phone] 08/28/2022 Appointment Laboratory Medicine Angélica Granger P.A.-C. [address] [place] [address] [phone] documented as of this encounter Visit Diagnoses Not on filedocumented in this encounter Additional Health Concerns Assessment Noted Time PHQ-9 Depression Total Score: 5 03/02/2019 10:51 AM CD T documented as of this encounter Care Teams Diver Pumper Relationship Specialty Start Date End Date Elsewhere, Pcp PCP - General Family Medicine 07/29/17 documented as of this encounter
--- OUTSIDE RECORDS SUMMARY | 2022-05-17 18:57 | XMS_ITS | Encounter Summary ---
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 [address] [place] [phone] 05/23/2022 Clinical Admitting/Central Communication Scheduling 05/27/2022 Comprehensive Visit Orthopedic Surgery Markus Sams M.D., Ph.D. [address] [place] [phone] 05/29/2022 Office Visit Otorhinolaryngology Dex Matta APRN, C.N.P., M.S.N. [address] [place] [phone] 05/29/2022 Office Visit Otorhinolaryngology Nadeem Maradiaga, P.Murtaza.-Arley., M.S. [address] [place] [address] [phone] 05/31/2022 Appointment Radiology Guilherme Matt MPAS, Jennifer., M.S. [address] [place] [address] [phone] 06/05/2022 Appointment Laboratory Medicine Angélica Granger P.A.-C. [address] [place] [phone] 06/19/2022 Appointment Laboratory Medicine Angélica Granger P.A.-C. [address] [place] [phone] 07/03/2022 Appointment Laboratory Medicine Angélica Granger P.A.-C. [address] [place] [phone] 07/17/2022 Appointment Laboratory Medicine Angélica Granger P.A.-C. [address] [place] [address] [phone] 07/31/2022 Appointment Laboratory Angélica Royal P.A.-C. [address] [place] [phone] 08/14/2022 Appointment Laboratory Angélica Royal P.A.-C. [address] [place] [phone] 08/28/2022 Appointment Laboratory Angélica Royal P.A.-C. [address] [place] [phone] documented as of this encounter Visit Diagnoses Not on filedocumented in this encounter Additional Health Concerns Assessment Noted Time PHQ-9 Depression Total Score: 5 03/02/2019 10:51 AM CD T documented as of this encounter Care Teams Sapphire Stylus Grinder Relationship Specialty Start Date End Date Elsewhere, Pcp PCP - General Family Medicine 07/29/17 documented as of this encounter
--- OUTSIDE RECORDS SUMMARY | 2022-05-17 18:57 | XMS_ITS | Encounter Summary ---
:1955 Author Organization [facility] Address [address] [place] [address] Care Team Providers Name Role Phone Elsewhere, Pcp Primary Care Provider Unavailable Reason for Visit Outpatient (Routine) - Closed Specialty Diagnoses / Procedures Referred By Contact Refer red To Contact Nutrition Diagnoses Chronic Kidney Disease Stage 4 Glomerular Filtration Rate 15-29 (HCC) Joce Bailey M.D. 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 PROF documented as of this encounter Last Filed Vital Signs Vital Sign Reading Time Taken Comments Blood Pressure - - Pulse - - Temperature - - Respiratory Rate - - Oxygen Saturation - - Inhaled Oxygen Concentration - - Weight 81.4 kg (179 lb 7.3 oz) 05/13/2019 8:56 AM HEALTHCARE PROF Height 175.2 cm (5' 8.98) 05/13/2019 8:56 AM HEALTHCARE PROF Body Mass Index 26.52 05/13/2019 8:56 AM HEALTHCARE PROF documented in this encounter Progress Notes Chelsy [...] 50-65 grams Method to Estimate Energy Needs: Hernandez-Avoca Hernandez-Avoca BEE (Basal): 1630 HB Adjusted: 1956 Total Calorie Needs: 6962-6897 calories NUTRITION DIAGNOSIS Altered nutrition-related laboratory values (NC-2.2) related to chronic kidney disease as evidenced by elevated creatinine and PTH. Nutrition Prescription/Recommendation 1473-8716 mg sodium, 50-65 grams protein, avoid phosphorus based additives INTERVENTION Education: Reviewed kidney friendly diet guidelines for low sodium with adequate protein. Encouragedaccurate label reading to identify and minimize hidden phosphorus based additives. MONITORING AND EVALUATION: Nutrition parameter to monitor: Food intake Desired Outcome: Maintain nutrition related lab values within target range Patient Goal(s): 1. 3862-6264 mg sodium 2. 50-65 gm protein 3. Avoid phosphorus additives FOLLOW UP PLAN: Provided name and phone number if questions should arise , Patient will call to schedule follow-up appointment if desired Time spent with patient (minutes): 45 THCARE PROF documented in this encounter Plan of Treatment Upcoming Encounters Date Type Specialty Care Team Description 05/22/2022 Appointment Laboratory Medicine Angélica Granger P.A.-C. [address] [place] [address] 05/23/2022 Clinical Admitting/Central Communication Scheduling 05/27/2022 Comprehensive Visit Orthopedic Surgery Markus Sams M.D., Ph.D. [address] [place] [phone] 05/29/2022 Office Visit Otorhinolaryngology Dex Matta APRN, C.N.P., M.S.N. [address] [place] [phone] 05/29/2022 Office Visit Otorhinolaryngology Nadeem Maradiaga, PMaryanne., M.S. [address] [place] [phone] 05/31/2022 Appointment Radiology Guilherme Matt MPAS, PMaryanne., M.S. [address] [place] [phone] 06/05/2022 Appointment Laboratory Medicine Angélica Granger P.A.-C. [address] [place] [phone] 06/19/2022 Appointment Laboratory Medicine Angélica Granger P.A.-C. [address] [place] [phone] 07/03/2022 Appointment Laboratory Medicine Angélica Granger P.A.-C. [address] [place] [phone] 07/17/2022 Appointment Laboratory Medicine Angélica Granger P.A.-C. [address] [place] [phone] 07/31/2022 Appointment Laboratory Medicine Angélica Granger P.A.-C. [address] [place] [phone] 08/14/2022 Appointment Laboratory Medicine Angélica Granger P.A.-C. [address] [place] [phone] 08/28/2022 Appointment Laboratory Medicine Angélica Granger P.A.-C. [address] [place] [phone] documented as of this encounter Visit Diagnoses Diagnosis Chronic Kidney Disease Stage 4 Glomerula r Filtration Rate 15-29 (HCC) documented in this encounter Additional Health Concerns Assessment Noted Time PHQ-9 Depression Total Score: 5 03/02/2019 10:51 AM CD T documented as of this encounter Care Teams Chopping Machine Operator Relationship Specialty Start Date End Date Elsewhere, Pcp PCP - General Family Medicine 07/29/17 documented as of this encounter
--- OUTSIDE RECORDS SUMMARY | 2022-05-17 18:57 | XMS_ITS | Encounter Summary ---
:1955 Author Organization [facility] Address [address] [place] [address] Care Team Providers Name Role Phone Elsewhere, Pcp Primary Care Provider Unavailable Encounter Details Date Type Department Care Team Description 05/11/2019 Hospital Encounter Department of Thong[place]ayoon, Hyperte nsion And Chronic Kidney Disease Stage 4 (HCC); Laboratory Medicine Sada Hobson Transplant Liver (HCC); in [address] Medication Therapy Phytochemistry Professor Not [place]tic[place], [place] [address] [facility] [phone] [place], [place] [phone] (Work) [phone] Social History Tobacco Use Types Packs/Day Years [...] at Date Recorded Male 05/16/2020 4:27 PM SCREENER AND BLENDER documented as of this encounter Medications at [...] Laboratory Medicine Angélica Granger P.A.-C. [address] [place] [phone] 05/23/2022 Clinical Admitting/Central Communication Scheduling 05/27/2022 Comprehensive Visit Orthopedic Surgery Markus Sams M.D., Ph.D. [address] [place] [phone] 05/29/2022 Office Visit Otorhinolaryngology Dex Matta APRN, C.N.P., M.S.N. [address] [place] [address] [phone] 05/29/2022 Office Visit Otorhinolaryngology Nadeem Maradiaga, P.A.-C., M.S. [address] [place] [phone] 05/31/2022 Appointment Radiology Guilherme Matt, RASTA, P.Murtaza.-Arley., M.S. [address] [place] [phone] 06/05/2022 Appointment Laboratory Medicine Angélica Granger P.A.-C. [address] [place] [address] [phone] 06/19/2022 Appointment Laboratory Medicine Angélica Granger P.A.-C. [address] [place] [phone] 07/03/2022 Appointment Laboratory Medicine Angélica Granger P.A.-C. [address] [place] [phone] 07/17/2022 Appointment Laboratory Medicine Angélica Granger P.A.-C. [address] [place] [phone] 07/31/2022 Appointment Laboratory Medicine Angélica Granger P.A.-C. [address] [place] [phone] 08/14/2022 Appointment Laboratory Medicine Angélica Granger P.A.-C. [address] [place] [phone] 08/28/2022 Appointment Laboratory Medicine Angélica Granger P.A.-C. [address] [place] [phone] documented as of this encounter Procedures Procedure Name Priority Date/Time Associated Diagnosis Comme nts LIPID PANEL, S Routine 05/11/2019 9:20 Hypertension And Result s for this AM SCREENER AND BLENDER Chronic Kidney procedure are in Disease Stage 4 (HCC) the re sults section. RENAL FUNCTION PANEL, Routine 05/11/2019 9:20 Hypertension And Results for this S AM SCREENER AND BLENDER Chronic Kidney procedure are in Disease Stage 4 (HCC) the re sults section. CYSTATIN C WITH EGFR Routine 05/11/2019 9:20 Hypertension And Results for this AM SCREENER AND BLENDER Chronic Kidney procedure are in Disease Stage 4 (HCC) the re sults section. TACROLIMUS LEVEL, B Routine 05/11/2019 9:20 Transplant Liver R esults for this AM SCREENER AND BLENDER (HCC) procedure are in Medication Therapy the resul ts Phytochemistry Professor Not section. Anticoagulant IRON AND TOT Routine 05/11/2019 9:20 Hypertension And Results for this IRON-BINDING AM SCREENER AND BLENDER Chronic Kidney procedure are in CAPACITY, S/P Disease Stage 4 (HCC) the r esults section. 25-HYDROXYVITAMIN D2 Routine 05/11/2019 9:20 Hypertension And Results for this AND D3, S AM SCREENER AND BLENDER Chronic Kidney procedure are in Disease Stage 4 (HCC) the re sults section. CBC WITH Routine 05/11/2019 9:20 Hypertension And Results for this DIFFERENTIAL, B AM SCREENER AND BLENDER Chronic Kidney procedure are in Disease Stage 4 (HCC) the re sults section. URIC ACID, S/P Routine 05/11/2019 9:20 Hypertension And Result s for this AM SCREENER AND BLENDER Chronic Kidney procedure are in Disease Stage 4 (HCC) the re sults section. PARATHYROID HORMONE Routine 05/11/2019 9:20 Hypertension And R esults for this (PTH), S AM SCREENER AND BLENDER Chronic Kidney procedure are in Disease Stage 4 (HCC) the re sults section. FERRITIN, S Routine 05/11/2019 9:20 Hypertension And Results for this AM SCREENER AND BLENDER Chronic Kidney procedure are in Disease Stage 4 (HCC) the re sults section. COMPREHENSIVE Routine 05/11/2019 9:20 Transplant Liver Results for this METABOLIC PANEL, S/P AM SCREENER AND BLENDER (HCC) procedure are in Medication Therapy the resul ts Phytochemistry Professor Not section. Anticoagulant ALBUMIN, RANDOM, U Routine 05/11/2019 9:10 Hypertension And Re sults for this AM SCREENER AND BLENDER Chronic Kidney procedure are in Disease Stage 4 (HCC) the re sults section. URINALYSIS WITH Routine 05/11/2019 9:10 Hypertension And Resul ts for this MICROSCOPIC AM SCREENER AND BLENDER Chronic Kidney procedure are in Disease Stage 4 (HCC) the re sults section. documented in this encounter Results (ABNORMAL) Renal Function Panel (05/11/2019 9:20 AM SCREENER AND BLENDER) Analysis Performed At Patho logist Time Signature Potassium, S 3.4 (L) 3.6 - 5.2 05/11/2019 [place] mmol/L 2:34 PM SCREENER AND BLENDER Sodium, S 139 135 - 145 05/11/2019 [place] mmol/L 2:34 PM SCREENER AND BLENDER Chloride, S 98 98 - 107 05/11/2019 [place] mmol/L 2:34 PM SCREENER AND BLENDER Bicarbonate, S 24 22 - 29 05/11/2019 [place] mmol/L 2:34 PM SCREENER AND BLENDER Anion Gap 17 (H) 7 - 15 05/11/2019 [place] 2:34 PM SCREENER AND BLENDER BUN (Blood Urea 51 (H) 8 - 24 05/11/2019 [place] Nitrogen), S mg/dL 2:34 PM SCREENER AND BLENDER Creatinine 3.01 (H) 0.74 - 05/11/2019 [place] 1.35 mg/dL 2:34 PM SCREENER AND BLENDER eGFR-Non 21 (L) >=60 05/11/2019 [place] Black/ mL/min/BSA 2:34 PM SCREENER AND BLENDER [place] Comment: ----ADDITIONAL INFORMATION---- Estimated GFR calculated using the 2009 CKD_EPI creatinine equation. eGFR-Black/ 24 (L) >=60 mL/min/BSA 2018 2:34 PM SCREENER AND BLENDER [place] Comment: ----ADDITIONAL INFORMATION---- Estimated GFR calculated using the 2009 CKD_EPI creatinine equation. Calcium, Total, S 9.2 8.8 - 10.2 mg/dL 05/11/2019 2:34 PM SCREENER AND BLENDER [place] Glucose, S 119 70 - 140 mg/dL 05/11/2019 2:34 PM SCREENER AND BLENDER O YAO Albumin, S 4.2 3.5 - 5.0 g/dL 05/11/2019 2:34 PM SCREENER AND BLENDER O YAO Phosphorus (Inorganic), S 3.4 2.5 - 4.5 mg/dL 05/11/20 4:22 PM SCREENER AND BLENDER AUST Specimen Anatomical Collection Method Collection Time Receive d Time (Source) Location / / Volume Laterality Blood (Blood, 05/11/2019 9:20 AM 05/11/20 1:34 Venous) SCREENER AND BLENDER PM SCREENER AND BLENDER Narrative [facility] - 05/11/2019 4:22 PM SCREENER AND BLENDER Specimen Information: Specimen ID: [id number] Specimen Type: Blood Specimen Collection Start Date: 019 ??9:20 AM Specimen Received Date: 05/11/2019 ??1: 34 PM Specimen ID: [id number] Specimen Type: Blood Specimen Collection Start Date: 019 ??9:20 AM Specimen Received Date: 05/11/2019 ??4: 01 PM Joce Bailey M.D. LAB BLOOD ADD-ON Performing Organization Address City/State/ZIP Code Phon e Number [facility]- [address] [place] [address] [place] [address] System in [place] [address] [facility] - [place], [place] [id number] [place] [address] (ABNORMAL) Cystatin C with Estimated GFR, S (05/11/2019 9:20 AM SCREENER AND BLENDER) athologist Signature eGFR by 16 >60 05/12/2019 DAVE Cystatin C mL/min/BSA 7:49 AM SCREENER AND BLENDER Comment: ----ADDITIONAL INFORMATION---- Cystatin C-based eGFR may differ substan tially from creatinine-based eGFR in patients with a bnormal muscle mass or acutely changing renal function. ??Pl ease interpret together with relevant clinical features. Cystatin C, S 3.18 (H) 0.77 - 1.42 mg/L 05/12/2019 7:49 AM SCREENER AND BLENDER DAVE Specimen Anatomical Collection Method Collection Time Receive d Time (Source) Location / / Volume Laterality Blood (Blood, 05/11/2019 9:20 AM 05/12/20 6:53 Venous) SCREENER AND BLENDER AM SCREENER AND BLENDER Joce Bailey M.D. LAB BLOOD ADD-ON Performing Organization Address City/State/ZIP Code Phon e Number [facility] - [address] [place], [place] [address] [place] [address] [facility] [address] (ABNORMAL) Lipid Panel (05/11/2019 9:20 AM SCREENER AND BLENDER) athologist Signature Cholesterol, 131 mg/dL 05/11/2019 [place] Total 2:34 PM SCREENER AND BLENDER Comment: ----REFERENCE VALUE---- Desirable: < 200 Borderline high: 200 - 239 High: > or = 240 Triglycerides 171 (H) mg/dL 05/11/2019 2:34 PM SCREENER AND BLENDER OWA T Comment: ----REFERENCE VALUE---- Normal: <150 Borderline high: 150-199 High: 200-499 Very high: > or =500 Cholesterol, HDL, S 33 (L) >=40 mg/dL 05/11/2019 2:34 PM SCREENER AND BLENDER OW[place] Calculated LDL 64 mg/dL 05/11/2019 2:34 PM SCREENER AND BLENDER OW AT Comment: ----REFERENCE VALUE---- Desirable: <100 Above Desirable: 100-129 Borderline high: 130-159 High: 160-189 Very high: > or =190 Cholesterol, Non-HDL, Calculated 98 mg/dL 019 2:34 PM SCREENER AND BLENDER OW Comment: ----REFERENCE VALUE---- Desirable: <130 Above Desirable: 130-159 Borderline high: 160-189 High: 190-219 Very high: > or =220 Specimen Anatomical Collection Method Collection Time Receive d Time (Source) Location / / Volume Laterality Blood (Blood, 05/11/2019 9:20 AM 05/11/20 1:34 Venous) SCREENER AND BLENDER PM SCREENER AND BLENDER Joce Bailey M.D. LAB BLOOD ADD-ON Performing Organization Address City/State/ZIP Code Phon e Number [facility]- [address] [place] [address] [place] [address] System in [place] [address] (ABNORMAL) CBC with Differential (05/11/2019 9:20 AM SCREENER AND BLENDER) [facility] Method Time Signature Hemoglobin 10.9 (L) 13.2 - 05/11/2019 FB60 16.6 g/dL 10:48 AM SCREENER AND BLENDER Hematocrit 33.0 (L) 38.3 - 05/11/2019 FB60 48.6 % 10:48 AM SCREENER AND BLENDER Erythrocytes 3.53 (L) 4.35 - 05/11/2019 FB60 5.65 10:48 AM SCREENER AND BLENDER x10(12)/L MCV 93.5 78.2 - 05/11/2019 FB60 97.9 fL 10:48 AM SCREENER AND BLENDER RBC Distrib Width 12.7 11.8 - 05/11/2019 FB60 14.5 % 10:48 AM SCREENER AND BLENDER Platelet Count 204 135 - 317 05/11/2019 FB60 x10(9)/L 10:48 AM SCREENER AND BLENDER Leukocytes 3.2 (L) 3.4 - 9.6 05/11/2019 FB60 x10(9)/L 10:48 AM SCREENER AND BLENDER Neutrophils 1.45 (L) 1.56 - 05/11/2019 FB60 6.45 10:48 AM SCREENER AND BLENDER x10(9)/L Lymphocytes 1.15 0.95 - 05/11/2019 FB60 3.07 10:48 AM SCREENER AND BLENDER x10(9)/L Monocytes 0.53 0.26 - 05/11/2019 FB60 0.81 10:48 AM SCREENER AND BLENDER x10(9)/L Eosinophils 0.06 0.03 - 05/11/2019 FB60 0.48 10:48 AM SCREENER AND BLENDER x10(9)/L Basophils 0.01 0.01 - 05/11/2019 FB60 0.08 10:48 AM SCREENER AND BLENDER x10(9)/L Specimen Anatomical Collection Method Collection Time Receive d Time (Source) Location / / Volume Laterality Blood (Blood, 05/11/2019 9:20 AM 05/11/20 9:24 Venous) SCREENER AND BLENDER AM SCREENER AND BLENDER Joce Bailey M.D. LAB BLOOD ADD-ON Performing Organization Address City/State/ZIP Code Phon e Number [facility] [address] [place] [address] [facility] [place] [address] (ABNORMAL) Iron and Total Iron-Binding Capacity (05/11/2019 9:20 AM SCREENER AND BLENDER) athologist Signature Iron 94 50 - 150 05/11/2019 AUST mcg/dL 5:00 PM SCREENER AND BLENDER Total Iron 240 (L) 250 - 400 05/11/2019 AUST Binding mcg/dL 5:00 PM SCREENER AND BLENDER Capacity Percent 39 14 - 50 % 05/11/2019 AUST Saturation 5:00 PM SCREENER AND BLENDER Specimen Anatomical Collection Method Collection Time Receive d Time (Source) Location / / Volume Laterality Blood (Blood, 05/11/2019 9:20 AM 05/11/20 4:01 Venous) SCREENER AND BLENDER PM SCREENER AND BLENDER Joce Bailey M.D. LAB BLOOD ADD-ON Performing Organization Address City/[facility] [address]/ZIP Code Phon e Number [facility]- [address] [place] [address] [facility] - [place], [place] [id number] [place] [address] Ferritin (05/11/2019 9:20 AM SCREENER AND BLENDER) P athologist Signature Ferritin, S 162 mcg/L 05/11/2019 2:08 [place] PM SCREENER AND BLENDER Comment: Biotin has been identified by the [...] (Blood, 05/11/2019 9:20 AM 05/11/20 1:34 Venous) SCREENER AND BLENDER PM SCREENER AND BLENDER Joce Bailey M.D. LAB BLOOD ADD-ON Performing Organization Address City/State/ZIP Code Phon e Number [facility]- [address] [place] [address] [place] [address] System in [place] [address] (ABNORMAL) Parathyroid Hormone (PTH) (05/11/2019 9:20 AM SCREENER AND BLENDER) athologist Signature Parathyroid 98 (H) 15 - 65 05/11/2019 AUST Hormone (PTH), S pg/mL 4:31 PM SCREENER AND BLENDER Comment: Biotin has been identified by the [...] (Blood, 05/11/2019 9:20 AM 05/11/20 4:01 Venous) SCREENER AND BLENDER PM SCREENER AND BLENDER Joce Bailey M.D. LAB BLOOD ADD-ON Performing Organization Address City/State/ZIP Code Phon e Number [facility]- [address] [place] [address] [facility] [place], [place] [id number] [place] [address] 25-Hydroxyvitamin D2 and D3 (05/11/2019 9:20 AM SCREENER AND BLENDER) P athologist Signature 25-Hydroxy D2 <4.0 ng/mL 05/14/2019 SDSC 11:05 AM SCREENER AND BLENDER 25-Hydroxy D3 69 ng/mL 05/14/2019 SDSC 11:05 AM SCREENER AND BLENDER 25-Hydroxy D 69 ng/mL 05/14/2019 SDSC Total 11:05 AM SCREENER AND BLENDER Comment: Interpretation: 51-80 ng/mL (increased r isk [...] (Blood, 05/11/2019 9:20 AM 05/12/20 7:57 Venous) SCREENER AND BLENDER AM SCREENER AND BLENDER Joce Bailey M.D. LAB BLOOD ADD-ON Performing Organization Address City/[facility] [address]/ZIP Code Phon e Number [facility] [address] [address] [place], [place] [address] [place] [address] [place] [address] Laboratory Medicine and Pathology [address] [place] [address] Dr. [place] (ABNORMAL) Uric Acid (05/11/2019 9:20 AM SCREENER AND BLENDER) P athologist Signature Uric Acid, S 9.9 (H) 3.7 - 8.0 05/11/2019 AUST mg/dL 4:22 PM SCREENER AND BLENDER Specimen Anatomical Collection Method Collection Time Receive d Time (Source) Location / / Volume Laterality Blood (Blood, 05/11/2019 9:20 AM 05/11/20 4:01 Venous) SCREENER AND BLENDER PM SCREENER AND BLENDER Joce Bailey M.D. LAB BLOOD ADD-ON Performing Organization Address City/State/ZIP Code Phon e Number [facility]- [address] [place] [address] [facility] [place] [address] [facility] [address] (ABNORMAL) Comprehensive Metabolic Panel (05/11/2019 9:20 AM SCREENER AND BLENDER) Analysis Performed At Patho logist Time Signature Potassium, S 3.4 (L) 3.6 - 5.2 05/11/2019 [place] mmol/L 2:34 PM SCREENER AND BLENDER Sodium, S 139 135 - 145 05/11/2019 [place] mmol/L 2:34 PM SCREENER AND BLENDER Chloride, S 98 98 - 107 05/11/2019 [place] mmol/L 2:34 PM SCREENER AND BLENDER Bicarbonate, S 24 22 - 29 05/11/2019 [place] mmol/L 2:34 PM SCREENER AND BLENDER Anion Gap 17 (H) 7 - 15 05/11/2019 [place] 2:34 PM SCREENER AND BLENDER BUN (Blood Urea 51 (H) 8 - 24 05/11/2019 [place] Nitrogen), S mg/dL 2:34 PM SCREENER AND BLENDER Creatinine 3.01 (H) 0.74 - 05/11/2019 [place] 1.35 mg/dL 2:34 PM SCREENER AND BLENDER eGFR-Non 21 (L) >=60 05/11/2019 [place] Black/ mL/min/BSA 2:34 PM SCREENER AND BLENDER [place] Comment: ----ADDITIONAL INFORMATION---- Estimated GFR calculated using the 2009 CKD_EPI creatinine equation. eGFR-Black/ 24 (L) >=60 mL/min/BSA 2018 2:34 PM SCREENER AND BLENDER [place] Comment: ----ADDITIONAL INFORMATION---- Estimated GFR calculated using the 2009 CKD_EPI creatinine equation. Calcium, Total, S 9.2 8.8 - 10.2 mg/dL 05/11/2019 2:34 PM SCREENER AND BLENDER [place] Glucose, S 119 70 - 140 mg/dL 05/11/2019 2:34 PM SCREENER AND BLENDER O YAO Protein, Total, S 6.5 6.3 - 7.9 g/dL 05/11/2019 2:34 P M SCREENER AND BLENDER [place] Albumin, S 4.2 3.5 - 5.0 g/dL 05/11/2019 2:34 PM SCREENER AND BLENDER O YAO Aspartate Aminotransferase 24 8 - 48 U/L 05/11/2019 2 :34 PM SCREENER AND BLENDER [place] (AST), S Alkaline Phosphatase, S 84 40 - 129 U/L 05/11/2019 2: 34 PM SCREENER AND BLENDER [place] Alanine Aminotransferase (ALT), 22 7 - 55 U/L 019 2:34 PM SCREENER AND BLENDER OW[place] S Bilirubin, Total, S 0.5 <=1.2 mg/dL 05/11/2019 2:34 PM SCREENER AND BLENDER [place] Specimen Anatomical Collection Method Collection Time Receive d Time (Source) Location / / Volume Laterality Blood (Blood, 05/11/2019 9:20 AM 05/11/20 1:34 Venous) SCREENER AND BLENDER PM SCREENER AND BLENDER Willis Mcdermott M.D. LAB BLOOD ADD-ON Performing Organization Address City/State/ZIP Code Phon e Number [facility]- [address] [place] [address] [place] [address] System in [place] [address] (ABNORMAL) Tacrolimus, B (05/11/2019 9:20 AM SCREENER AND BLENDER) P athologist Signature Tacrolimus, B 2.4 (L) 5.0-15.0 05/12/2019 [facility] (Trough) 1:04 PM SCREENER AND BLENDER ng/mL Comment: ----ADDITIONAL INFORMATION---- Target steady-state trough [...] 05/11/2019 9:20 AM 05/12/20 19 7:37 Venous) SCREENER AND BLENDER AM SCREENER AND BLENDER Willis Mcdermott M.D. LAB BLOOD NON ADD-ON Performing Organization Address City/State/ZIP Code Phon e Number [facility] [address] [place], [place] [address] [facility] [address] Laboratory Medicine and Pathology [address] [place] (ABNORMAL) Microalbumin, Random, Urine (05/11/2019 9:10 AM SCREENER AND BLENDER) Patholo gist Method Time Signature Microalbumin 193.0 mg/L 05/11/2019 OW[place] 2:39 PM SCREENER AND BLENDER Creatinine 142 mg/dL 05/11/2019 [place] 2:39 PM SCREENER AND BLENDER Albumin/Creatinin 136 (H) <17 mg/g 05/11/2019 [place] e Ratio 2:39 PM SCREENER AND BLENDER Specimen Anatomical Collection Method Collection Time Receive d Time (Source) Location / / Volume Laterality Urine (Urine, 05/11/2019 9:10 AM 05/11/20 1:35 Voided) SCREENER AND BLENDER PM SCREENER AND BLENDER Joce Bailey M.D. LAB URINE ORDERABLES Performing Organization Address City/State/ZIP Code Phon e Number [facility]- [address] [place] [address] [place] [address] System in [place] [address] (ABNORMAL) Urinalysis with Microscopic: Urine, Voided (05/11/2019 9:10 AM SCREENER AND BLENDER) P athologist Signature Source Midstream 05/11/2019 FB60 11:07 AM SCREENER AND BLENDER Clarity Clear Clear 05/11/2019 FB60 11:08 AM SCREENER AND BLENDER Color Yellow 05/11/2019 FB60 11:08 AM SCREENER AND BLENDER Comment: ----REFERENCE VALUE---- Colorless Yellow Bhakti Blood Moderate (A) Negative 05/11/2019 11:08 AM SCREENER AND BLENDER FB6 0 Nitrite Negative Negative 05/11/2019 11:08 AM SCREENER AND BLENDER FB60 Leukocyte Esterase Negative Negative 05/11/2019 11:[address] FB60 Protein 30 (A) mg/dL 05/11/2019 11:08 AM SCREENER AND BLENDER FB60 Comment: ----REFERENCE VALUE---- Negative Trace Glucose Negative Negative mg/dL 05/11/2019 11:08 AM SCREENER AND BLENDER F B60 Ketones, QI(U) Negative Negative mg/dL 05/11/2019 11:08 AM SCREENER AND BLENDER FB60 Bilirubin Negative Negative 05/11/2019 11:08 AM SCREENER AND BLENDER FB60 pH 6.0 5.0 - 8.0 05/11/2019 11:08 AM SCREENER AND BLENDER FB60 Specific Hagerman 1.010 1.001 - 1.035 05/11/2019 11:08 AM SCREENER AND BLENDER FB60 Urobilinogen 0.2 0.2 - 1.0 mg/dL 05/11/2019 11:[address] FB60 White Blood Cells None Seen /hpf 05/11/2019 11:08 AM CS T FB60 Comment: ----REFERENCE VALUE---- Males: 0-3 Females: 0-10 Unknown: 0-10 Red Blood Cells 3-10 (A) 0 - 2 /hpf 05/11/2019 11:08 AM SCREENER AND BLENDER FB60 Dysmorphic Red Blood Cells <=25 <=25 % 05/11/2019 11 :08 AM SCREENER AND BLENDER FB60 Squamous Cells Occ-3 /hpf 05/11/2019 11:08 AM SCREENER AND BLENDER F B60 Specimen Anatomical Collection Method Collection Time Receive d Time (Source) Location / / Volume Laterality Urine (Urine, 05/11/2019 9:10 AM 05/11/20 19 9:31 Voided) SCREENER AND BLENDER AM SCREENER AND BLENDER Joce Bailey M.D. LAB URINE ORDERABLES Performing Organization Address City/State/ZIP Code Phon e Number [place] [address] [place] [address] [facility] [place] [address] [address] documented in this encounter Visit Diagnoses Diagnosis Hypertension And Chronic Kidney Disease Stage 4 (HCC) Transplant Liver (HCC) Medication Therapy Phytochemistry Professor Not Anticoa gulant documented in this encounter Additional Health Concerns Assessment Noted Time PHQ-9 Depression Total Score: 5 03/02/2019 10:51 AM CD T documented as of this encounter Care Teams Pharmaceutical Worker Relationship Specialty Start Date End Date Elsewhere, Pcp PCP - General Family Medicine 07/29/17 documented as of this encounter
--- OUTSIDE RECORDS SUMMARY | 2022-05-17 18:58 | XMS_ITS | Encounter Summary ---
:1955 Author Organization [facility] Address [address] [place] [address] Care Team Providers Name Role Phone Elsewhere, Pcp Primary Care Provider Unavailable Reason for Referral Outpatient (Routine) - Closed Specialty Diagnoses / Procedures Referred By Contact Refer red To Contact [facility] Sada Hobson [address] [place] [address] Referral ID Status Reason Start Date Expiration Date Visits Requ ested Visits Authorized [id number] Closed 03/01/2019 02/29/2020 1 1 Reason for Visit Reason Onset Date Comments Appointment 03/01/2019 Encounter Details Date Type Department Care Team Description 03/01/2019 Clinical Communication Division of Nephrology Reba Greene Appointment and Hypertension in [place], [place] [address] [place] [address] [place] [phone] Social History Tobacco Use Types Packs/Day Years [...] 12/15/2021 organizations such as anabaptism groups, unions, [employer] or athletic groups, or school groups? 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 [address] [place] [phone] 05/23/2022 Clinical Admitting/Central Communication Scheduling 05/27/2022 Comprehensive Visit Orthopedic Surgery Markus Sams M.D., Ph.D. [address] [place] [phone] 05/29/2022 Office Visit Otorhinolaryngology Dex Matta APRN CDemetriusNDemetriusP., M.S.N. [address] [place] [phone] 05/29/2022 Office Visit Otorhinolaryngology Nadeem Maradiaga, Edmundo, M.S. [address] [place] [phone] 05/31/2022 Appointment Radiology Guilherme Matt, RASTA, Edmundo, M.S. [address] [place] [phone] 06/05/2022 Appointment Laboratory Medicine Angélica Granger P.A.-C. [address] [place] [phone] 06/19/2022 Appointment Laboratory Medicine Angélica Granger P.A.-C. [address] [place] [phone] 07/03/2022 Appointment Laboratory Medicine Angélica Granger P.A.-C. [address] [place] [phone] 07/17/2022 Appointment Laboratory Medicine Angélica Granger P.A.-C. [address] [place] [phone] 07/31/2022 Appointment Laboratory Medicine Angélica Granger P.A.-C. [address] [place] [phone] 08/14/2022 Appointment Laboratory Medicine Angélica Granger P.A.-C. [address] [place] [phone] 08/28/2022 Appointment Laboratory Medicine Angélica Granger P.A.-C. [address] [place] [phone] Scheduled Referrals Name Type Priority Associated Order Schedule Diagnoses Nephrology and Outpatient Referral Routine Expect ed: Hypertension office 05/01/20 visit (clinic) (Approximate) , Expires: 03/01/2022 documented as of this encounter Results (ABNORMAL) Uric Acid (05/11/2019 9:20 AM DIRECTOR OF HUMAN RESOURCES) athologist Signature Uric Acid, S 9.9 (H) 3.7 - 8.0 05/11/2019 AUST mg/dL 4:22 PM DIRECTOR OF HUMAN RESOURCES Specimen Anatomical Collection Method Collection Time Receive d Time (Source) Location / / Volume Laterality Blood (Blood, 05/11/2019 9:20 AM 05/11/20 4:01 Venous) DIRECTOR OF HUMAN RESOURCES PM DIRECTOR OF HUMAN RESOURCES Joce Bailey M.D. LAB BLOOD ADD-ON Performing Organization Address City/State/ZIP Code Phon e Number [facility]- [address] [place] [address] [facility] [place], [place] [address] [place] [address] 25-Hydroxyvitamin D2 and D3 (05/11/2019 9:20 AM DIRECTOR OF HUMAN RESOURCES) athologist Signature 25-Hydroxy D2 <4.0 ng/mL 05/14/2019 SDSC 11:05 AM DIRECTOR OF HUMAN RESOURCES 25-Hydroxy D3 69 ng/mL 05/14/2019 SDSC 11:05 AM DIRECTOR OF HUMAN RESOURCES 25-Hydroxy D 69 ng/mL 05/14/2019 SDSC Total 11:05 AM DIRECTOR OF HUMAN RESOURCES Comment: Interpretation: 51-80 ng/mL (increased r isk of hypercalciuria) ----REFERENCE VALUE---- 25-HYDROXY D TOTAL (D2+D3) Optimum level s in the healthy population are 20-50, patients with bone disease may benefit from higher levels within this r itzel. ----ADDITIONAL INFORMATION---- This test was developed and its performa nce characteristics determined by [facility] in a manner consistent with CLIA requirements. This test has not been cleared or approved by the U.S. Mer d and Drug Administration. Specimen Anatomical Collection Method Collection Time Receive d Time (Source) Location / / Volume Laterality Blood (Blood, 05/11/2019 9:20 AM 05/12/20 7:57 Venous) DIRECTOR OF HUMAN RESOURCES AM DIRECTOR OF HUMAN RESOURCES Joce Bailey M.D. LAB BLOOD ADD-ON Performing Organization Address City/[facility]/ZIP Code Phon e Number [facility] [address] MURILLO [address] [place] [address] Laboratory Medicine and Pathology [address] [place] [address] Dr. MURILLO (ABNORMAL) Parathyroid Hormone (PTH) (05/11/2019 9:20 AM DIRECTOR OF HUMAN RESOURCES) P athologist Signature Parathyroid 98 (H) 15 - 65 05/11/2019 AUST Hormone (PTH), S pg/mL 4:31 PM DIRECTOR OF HUMAN RESOURCES Comment: Biotin has been identified by the [...] (Blood, 05/11/2019 9:20 AM 05/11/20 4:01 Venous) DIRECTOR OF HUMAN RESOURCES PM DIRECTOR OF HUMAN RESOURCES Joce Bailey M.D. LAB BLOOD ADD-ON Performing Organization Address City/State/ZIP Code Phon e Number [facility]- [address] [place] [address] [facility] [place] [address] [facility] [address] Ferritin (05/11/2019 9:20 AM DIRECTOR OF HUMAN RESOURCES) P athologist Signature Ferritin, S 162 mcg/L 05/11/2019 2:08 OWAT PM DIRECTOR OF HUMAN RESOURCES Comment: Biotin has been identified by the [facility] as a potential interfering substance. ??Higher concentr ations of biotin may be found in multivitamins, hair/nail supple ments, and workout supplements. ??If the result does not ma [facility] clinical observations, repeat testing after patient refrains fr om the use of supplements for at least 12 hours. ----REFERENCE VALUE---- Reference values have not been established for patients who are greater than 60 years of age Specimen Anatomical Collection Method Collection Time Receive d Time (Source) Location / / Volume Laterality Blood (Blood, 05/11/2019 9:20 AM 05/11/20 1:34 Venous) DIRECTOR OF HUMAN RESOURCES PM DIRECTOR OF HUMAN RESOURCES Joce Bailey M.D. LAB BLOOD ADD-ON Performing Organization Address City/State/ZIP Code Phon e Number [facility]- [address] [place] [address] [place] [address] System in [place] [address] (ABNORMAL) Iron and Total Iron-Binding Capacity (05/11/2019 9:20 AM DIRECTOR OF HUMAN RESOURCES) P athologist Signature Iron 94 50 - 150 05/11/2019 AUST mcg/dL 5:00 PM DIRECTOR OF HUMAN RESOURCES Total Iron 240 (L) 250 - 400 05/11/2019 AUST Binding mcg/dL 5:00 PM DIRECTOR OF HUMAN RESOURCES Capacity Percent 39 14 - 50 % 05/11/2019 AUST Saturation 5:00 PM DIRECTOR OF HUMAN RESOURCES Specimen Anatomical Collection Method Collection Time Receive d Time (Source) Location / / Volume Laterality Blood (Blood, 05/11/2019 9:20 AM 05/11/20 4:01 Venous) DIRECTOR OF HUMAN RESOURCES PM DIRECTOR OF HUMAN RESOURCES Joce Bailey M.D. LAB BLOOD ADD-ON Performing Organization Address City/State/ZIP Code Phon e Number [facility]- [address] [place] [address] [facility] [place] [address] [facility] [address] (ABNORMAL) CBC with Differential (05/11/2019 9:20 AM DIRECTOR OF HUMAN RESOURCES) Patholo gist Method Time Signature Hemoglobin 10.9 (L) 13.2 - 05/11/2019 FB60 16.6 g/dL 10:48 AM DIRECTOR OF HUMAN RESOURCES Hematocrit 33.0 (L) 38.3 - 05/11/2019 FB60 48.6 % 10:48 AM DIRECTOR OF HUMAN RESOURCES Erythrocytes 3.53 (L) 4.35 - 05/11/2019 FB60 5.65 10:48 AM DIRECTOR OF HUMAN RESOURCES x10(12)/L MCV 93.5 78.2 - 05/11/2019 FB60 97.9 fL 10:48 AM DIRECTOR OF HUMAN RESOURCES RBC Distrib Width 12.7 11.8 - 05/11/2019 FB60 14.5 % 10:48 AM DIRECTOR OF HUMAN RESOURCES Platelet Count 204 135 - 317 05/11/2019 FB60 x10(9)/L 10:48 AM DIRECTOR OF HUMAN RESOURCES Leukocytes 3.2 (L) 3.4 - 9.6 05/11/2019 FB60 x10(9)/L 10:48 AM DIRECTOR OF HUMAN RESOURCES Neutrophils 1.45 (L) 1.56 - 05/11/2019 FB60 6.45 10:48 AM DIRECTOR OF HUMAN RESOURCES x10(9)/L Lymphocytes 1.15 0.95 - 05/11/2019 FB60 3.07 10:48 AM DIRECTOR OF HUMAN RESOURCES x10(9)/L Monocytes 0.53 0.26 - 05/11/2019 FB60 0.81 10:48 AM DIRECTOR OF HUMAN RESOURCES x10(9)/L Eosinophils 0.06 0.03 - 05/11/2019 FB60 0.48 10:48 AM DIRECTOR OF HUMAN RESOURCES x10(9)/L Basophils 0.01 0.01 - 05/11/2019 FB60 0.08 10:48 AM DIRECTOR OF HUMAN RESOURCES x10(9)/L Specimen Anatomical Collection Method Collection Time Receive d Time (Source) Location / / Volume Laterality Blood (Blood, 05/11/2019 9:20 AM 05/11/20 9:24 Venous) DIRECTOR OF HUMAN RESOURCES AM DIRECTOR OF HUMAN RESOURCES Joce Bailey M.D. LAB BLOOD ADD-ON Performing Organization Address City/State/ZIP Code Phon e Number [facility]- [address] [place] [address] [facility] [address] [place] [address] System in [place] [address] (ABNORMAL) Lipid Panel (05/11/2019 9:20 AM DIRECTOR OF HUMAN RESOURCES) P athologist Signature Cholesterol, 131 mg/dL 05/11/2019 OWAT Total 2:34 PM DIRECTOR OF HUMAN RESOURCES Comment: ----REFERENCE VALUE---- Desirable: < 200 Borderline high: 200 - 239 High: > or = 240 Triglycerides 171 (H) mg/dL 05/11/2019 2:34 PM DIRECTOR OF HUMAN RESOURCES OWA T Comment: ----REFERENCE VALUE---- Normal: <150 Borderline high: 150-199 High: 200-499 Very high: > or =500 Cholesterol, HDL, S 33 (L) >=40 mg/dL 05/11/2019 2:34 PM DIRECTOR OF HUMAN RESOURCES OWAT Calculated LDL 64 mg/dL 05/11/2019 2:34 PM DIRECTOR OF HUMAN RESOURCES OW AT Comment: ----REFERENCE VALUE---- Desirable: <100 Above Desirable: 100-129 Borderline high: 130-159 High: 160-189 Very high: > or =190 Cholesterol, Non-HDL, Calculated 98 mg/dL 019 2:34 PM DIRECTOR OF HUMAN RESOURCES OWAT Comment: ----REFERENCE VALUE---- Desirable: <130 Above Desirable: 130-159 Borderline high: 160-189 High: 190-219 Very high: > or =220 Specimen Anatomical Collection Method Collection Time Receive d Time (Source) Location / / Volume Laterality Blood (Blood, 05/11/2019 9:20 AM 05/11/20 1:34 Venous) DIRECTOR OF HUMAN RESOURCES PM DIRECTOR OF HUMAN RESOURCES Joce Bailey M.D. LAB BLOOD ADD-ON Performing Organization Address City/State/ZIP Code Phon e Number [facility] [address] [place] [address] [facility] [place] [address] System in [place] [address] (ABNORMAL) Cystatin C with Estimated GFR, S (05/11/2019 9:20 AM DIRECTOR OF HUMAN RESOURCES) P athologist Signature eGFR by 16 >60 05/12/2019 DAVE Cystatin C mL/min/BSA 7:49 AM DIRECTOR OF HUMAN RESOURCES Comment: ----ADDITIONAL INFORMATION---- Cystatin C-based eGFR may differ substan tially from creatinine-based eGFR in patients with a bnormal muscle mass or acutely changing renal function. ??Pl ease interpret together with relevant clinical features. Cystatin C, S 3.18 (H) 0.77 - 1.42 mg/L 05/12/2019 7:49 AM DIRECTOR OF HUMAN RESOURCES DAVE Specimen Anatomical Collection Method Collection Time Receive d Time (Source) Location / / Volume Laterality Blood (Blood, 05/11/2019 9:20 AM 05/12/20 6:53 Venous) DIRECTOR OF HUMAN RESOURCES AM DIRECTOR OF HUMAN RESOURCES Joce Bailey M.D. LAB BLOOD ADD-ON Performing Organization Address City/State/ZIP Code Phon e Number [facility] - [address] [place], [place] [address] [facility] [place] [address] [facility] [address] (ABNORMAL) Renal Function Panel (05/11/2019 9:20 AM DIRECTOR OF HUMAN RESOURCES) Analysis Performed At Patho logist Time Signature Potassium, S 3.4 (L) 3.6 - 5.2 05/11/2019 OWAT mmol/L 2:34 PM DIRECTOR OF HUMAN RESOURCES Sodium, S 139 135 - 145 05/11/2019 OWAT mmol/L 2:34 PM DIRECTOR OF HUMAN RESOURCES Chloride, S 98 98 - 107 05/11/2019 OWAT mmol/L 2:34 PM DIRECTOR OF HUMAN RESOURCES Bicarbonate, S 24 22 - 29 05/11/2019 OWAT mmol/L 2:34 PM DIRECTOR OF HUMAN RESOURCES Anion Gap 17 (H) 7 - 15 05/11/2019 OWAT 2:34 PM DIRECTOR OF HUMAN RESOURCES BUN (Blood Urea 51 (H) 8 - 24 05/11/2019 OWAT Nitrogen), S mg/dL 2:34 PM DIRECTOR OF HUMAN RESOURCES Creatinine 3.01 (H) 0.74 - 05/11/2019 OWAT 1.35 mg/dL 2:34 PM DIRECTOR OF HUMAN RESOURCES eGFR-Non 21 (L) >=60 05/11/2019 OWAT Black/ mL/min/BSA 2:34 PM DIRECTOR OF HUMAN RESOURCES Congolese Comment: ----ADDITIONAL INFORMATION---- Estimated GFR calculated using the 2009 CKD_EPI creatinine equation. eGFR-Black/ 24 (L) >=60 mL/min/BSA 2018 2:34 PM DIRECTOR OF HUMAN RESOURCES OWAT Comment: ----ADDITIONAL INFORMATION---- Estimated GFR calculated using the 2009 CKD_EPI creatinine equation. Calcium, Total, S 9.2 8.8 - 10.2 mg/dL 05/11/2019 2:34 PM DIRECTOR OF HUMAN RESOURCES OWAT Glucose, S 119 70 - 140 mg/dL 05/11/2019 2:34 PM DIRECTOR OF HUMAN RESOURCES O YAO Albumin, S 4.2 3.5 - 5.0 g/dL 05/11/2019 2:34 PM DIRECTOR OF HUMAN RESOURCES O YAO Phosphorus (Inorganic), S 3.4 2.5 - 4.5 mg/dL 05/11/20 4:22 PM DIRECTOR OF HUMAN RESOURCES AUST Specimen Anatomical Collection Method Collection Time Receive d Time (Source) Location / / Volume Laterality Blood (Blood, 05/11/2019 9:20 AM 05/11/20 1:34 Venous) DIRECTOR OF HUMAN RESOURCES PM DIRECTOR OF HUMAN RESOURCES Narrative [facility] - 05/11/2019 4:22 PM DIRECTOR OF HUMAN RESOURCES Specimen Information: Specimen ID: [id number] Specimen Type: Blood Specimen Collection Start Date: ??9:20 AM Specimen Received Date: 05/11/2019 ??1: 34 PM Specimen ID: [id number] Specimen Type: Blood Specimen Collection Start Date: ??9:20 AM Specimen Received Date: 05/11/2019 ??4: 01 PM Joce Bailey M.D. LAB BLOOD ADD-ON Performing Organization Address City/[facility] Phon e Number [facility]- [address] [place] [address] [place] [address] System in [place] [address] [facility] - [address] (ABNORMAL) Microalbumin, Random, Urine (05/11/2019 9:10 AM DIRECTOR OF HUMAN RESOURCES) [facility] Method Time Signature Microalbumin 193.0 mg/L 05/11/2019 OWAT 2:39 PM DIRECTOR OF HUMAN RESOURCES Creatinine 142 mg/dL 05/11/2019 OWAT 2:39 PM DIRECTOR OF HUMAN RESOURCES Albumin/Creatinin 136 (H) <17 mg/g 05/11/2019 OWAT e Ratio 2:39 PM DIRECTOR OF HUMAN RESOURCES Specimen Anatomical Collection Method Collection Time Receive d Time (Source) Location / / Volume Laterality Urine (Urine, 05/11/2019 9:10 AM 05/11/20 1:35 Voided) DIRECTOR OF HUMAN RESOURCES PM DIRECTOR OF HUMAN RESOURCES Joce Bailey M.D. LAB URINE ORDERABLES Performing Organization Address City/[facility]/ZIP [facility] Phon e Number [facility]- [address] [place] [address] [place] [address] System in [place] [address] (ABNORMAL) Urinalysis with Microscopic: Urine, Voided (05/11/2019 9:10 AM DIRECTOR OF HUMAN RESOURCES) P athologist Signature Source Midstream 05/11/2019 FB60 11:07 AM DIRECTOR OF HUMAN RESOURCES Clarity Clear Clear 05/11/2019 FB60 11:08 AM DIRECTOR OF HUMAN RESOURCES Color Yellow 05/11/2019 FB60 11:08 AM DIRECTOR OF HUMAN RESOURCES Comment: ----REFERENCE VALUE---- Colorless Yellow Bhakti Blood Moderate (A) Negative 05/11/2019 11:08 AM DIRECTOR OF HUMAN RESOURCES FB6 0 Nitrite Negative Negative 05/11/2019 11:08 AM DIRECTOR OF HUMAN RESOURCES FB60 Leukocyte Esterase Negative Negative 05/11/2019 11:[address] FB60 Protein 30 (A) mg/dL 05/11/2019 11:08 AM DIRECTOR OF HUMAN RESOURCES FB60 Comment: ----REFERENCE VALUE---- Negative Trace Glucose Negative Negative mg/dL 05/11/2019 11:08 AM DIRECTOR OF HUMAN RESOURCES F B60 Ketones, QI(U) Negative Negative mg/dL 05/11/2019 11:08 AM DIRECTOR OF HUMAN RESOURCES FB60 Bilirubin Negative Negative 05/11/2019 11:08 AM DIRECTOR OF HUMAN RESOURCES FB60 pH 6.0 5.0 - 8.0 05/11/2019 11:08 AM DIRECTOR OF HUMAN RESOURCES FB60 Specific [place] 1.010 1.001 - 1.035 05/11/2019 11:08 AM DIRECTOR OF HUMAN RESOURCES FB60 Urobilinogen 0.2 0.2 - 1.0 mg/dL 05/11/2019 11:[address] FB60 White Blood Cells None Seen /hpf 05/11/2019 11:08 AM CS T FB60 Comment: ----REFERENCE VALUE---- Males: 0-3 Females: 0-10 Unknown: 0-10 Red Blood Cells 3-10 (A) 0 - 2 /hpf 05/11/2019 11:08 AM DIRECTOR OF HUMAN RESOURCES FB60 Dysmorphic Red Blood Cells <=25 <=25 % 05/11/2019 11 :08 AM DIRECTOR OF HUMAN RESOURCES FB60 Squamous Cells Occ-3 /hpf 05/11/2019 11:08 AM DIRECTOR OF HUMAN RESOURCES F B60 Specimen Anatomical Collection Method Collection Time Receive d Time (Source) Location / / Volume Laterality Urine (Urine, 05/11/2019 9:10 AM 05/11/20 19 9:31 Voided) DIRECTOR OF HUMAN RESOURCES AM DIRECTOR OF HUMAN RESOURCES Joce Bailey M.D. LAB URINE ORDERABLES Performing Organization Address City/State/ZIP Code Phon e Number [facility]- [address] [place] [address] [facility] [address] [place] [address] System in [place] [address] documented in this encounter Visit Diagnoses Diagnosis Hypertension And Chronic Kidney Disease Stage 4 (HCC) - Primary Hypertension And Chronic Kidney Disease Stage 4 (HCC) Transplant Liver (HCC) Medication Therapy Longterm Not Anticoa gulant documented in this encounter Additional Health Concerns Assessment Noted Time PHQ-9 Depression Total Score: 2 08/25/2018 9:45 AM DIRECTOR OF HUMAN RESOURCES documented as of this encounter Care Teams Drafter Marine Relationship Specialty Start Date End Date Elsewhere, Pcp PCP - General Family Medicine 07/29/17 documented as of this encounter
--- OUTSIDE RECORDS SUMMARY | 2022-05-17 18:58 | XMS_ITS | Encounter Summary ---
:1955 Author Organization [facility] Address [address] [place] [address] Care Team Providers Name Role Phone Elsewhere, Pcp Primary Care Provider Unavailable Reason for Visit Reason Comments Hypertension medication dose reduction Outpatient (Routine) - Closed Specialty Diagnoses / Procedures Referred By Contact Refer red To Contact Nephrology and Diagnoses Pretransplant Recipient Evaluation Exam Chronic Kidney Disease Stage 4 Glomerular Filtration Rate 15-29 (HCC) Efrem Mohr M.D. [facility] Hypertension [address] [place] [address] Referral ID Status Reason Start Date Expiration Date Visits Requ ested Visits Authorized [id number] Closed 02/10/2019 02/10/2020 1 1 Encounter Details Date Type Department Care Team Description 03/03/2019 Nurse Only Division of Nephrology Jose Mohr M.D. [address] [place] [phone] Hypertension and Hypertension in [place] Blake I. 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 [address] [place] [phone] 05/23/2022 Clinical Admitting/Central Communication Scheduling 05/27/2022 Comprehensive Visit Orthopedic Surgery Markus Sams M.D., Ph.D. [address] [place] [phone] 05/29/2022 Office Visit Otorhinolaryngology Dex Matta APRN CDemetriusNFabrice., M.S.N. [address] [place] [phone] 05/29/2022 Office Visit Otorhinolaryngology Nadeem Maradiaga P.A.-C., M.S. [address] [place] [phone] 05/31/2022 Appointment Radiology Guilherme Matt MPAS, P.A.-C., M.S. [address] [place] [phone] 06/05/2022 Appointment Laboratory Medicine Angélica Granger P.A.-C. [address] [place] [phone] 06/19/2022 Appointment Laboratory Medicine Angélica Granger P.A.-C. [address] [place] [phone] 07/03/2022 Appointment Laboratory Medicine Angélica Granger P.A.-C. [address] [place] [phone] 07/17/2022 Appointment Laboratory Medicine Angélica Granger P.A.-C. [address] [place] [phone] 07/31/2022 Appointment Laboratory Medicine Angélica Granger P.A.-C. [address] [place] [phone] 08/14/2022 Appointment Laboratory Medicine Angélica Granger P.A.-C. [address] [place] [phone] 08/28/2022 Appointment Laboratory Medicine Angélica Granger P.A.-C. [address] [place] [phone] documented as of this encounter Visit Diagnoses Diagnosis Pretransplant Recipient Evaluation Exam Chronic Kidney Disease Stage 4 Glomerula r Filtration Rate 15-29 (HCC) documented in this encounter Additional Health Concerns Assessment Noted Time PHQ-9 Depression Total Score: 5 03/02/2019 10:51 AM CD T documented as of this encounter Care Teams Plan Checker Relationship Specialty Start Date End Date Elsewhere, Pcp PCP - General Family Medicine 07/29/17 documented as of this encounter
--- OUTSIDE RECORDS SUMMARY | 2022-05-17 18:58 | XMS_ITS | Encounter Summary ---
:1955 Author Organization [facility] Address [address] [place] [address] Care Team Providers Name Role Phone Elsewhere, Pcp Primary Care Provider Unavailable Reason for Visit Transplant (Routine) - Closed Specialty Diagnoses / Procedures Referred By Contact Refer red To Contact Transplant Surgery / Diagnoses Pretransplant Recipient Evaluation Exam Chronic Kidney Disease Stage 4 Glomerular Filtration Rate 15-29 (HCC) Efrem Mohr M.D. [facility] Transplant [address] [place] [phone] Referral ID Status Reason Start Date Expiration Date Visits Requ ested Visits Authorized [id number] Closed 02/10/2019 02/10/2020 1 1 Encounter Details Date Type Department Care Team Description 03/02/2019 Nurse Only Curt Rene [facility] Efrem Santana M.D. [address] [place] [phone] for Transplantation and Patricia Pinto R.N., C.C.T.C. [address] [place] [phone] Clinical Regeneration in [place], [place] [address] [place] [phone] Social History Tobacco Use Types Packs/Day [...] 12/15/2021 organizations such as temple groups, unions, fraSecond Genome or athletic groups, or school groups? 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 [address] [place] [phone] 05/29/2022 Office Visit Otorhinolaryngology Dex Matta APRN, C.N.P., M.S.N. [address] [place] [phone] 05/29/2022 Office Visit Otorhinolaryngology Nadeem Maradiaga P.A.-C., M.S. [address] [place] [phone] 05/31/2022 Appointment Radiology Guilherme Matt MPAS, P.A.-C., M.S. [address] [place] [phone] 06/05/2022 Appointment Laboratory Medicine Angélica Granger P.A.-C. [address] [place] [phone] 06/19/2022 Appointment Laboratory Medicine Angélica Granger P.A.-C. [address] [place] [phone] 07/03/2022 Appointment Laboratory Medicine Angélica Granger P.A.-C. [address] [place] [phone] 07/17/2022 Appointment Laboratory Medicine Angélica Granger P.A.-C. [address] [place] [phone] 07/31/2022 Appointment Laboratory Medicine Angélica Granger P.A.-C. [address] [place] [phone] 08/14/2022 Appointment Laboratory Medicine Angélica Granger P.A.-C. [address] [place] [phone] 08/28/2022 Appointment Laboratory Medicine Angélica Granger P.A.-C. [address] [place] [phone] documented as of this encounter Visit Diagnoses Diagnosis Pretransplant Recipient Evaluation Exam Chronic Kidney Disease Stage 4 Glomerula r Filtration Rate 15-29 (HCC) documented in this encounter Additional Health Concerns Assessment Noted Time PHQ-9 Depression Total Score: 5 03/02/2019 10:51 AM CD T documented as of this encounter Care Teams Automobile Mechanic Relationship Specialty Start Date End Date Elsewhere, Pcp PCP - General Family Medicine 07/29/17 documented as of this encounter
--- OUTSIDE RECORDS SUMMARY | 2022-05-17 18:58 | XMS_ITS | Encounter Summary ---
:1955 Author Organization [facility] Address [address] [place] [address] Care Team Providers Name Role Phone Elsewhere, Pcp Primary Care Provider Unavailable Reason for Visit Reason Onset Date Comments order clarification 02/11/2019 Encounter Details Date Type Department Care Team Description 02/11/2019 Clinical Curt Vázquez, order clarification Communication [place] for [facility] and [phone] Clinical Regeneration (Work) in [place], [place] [address] [place] [address] Social History Tobacco Use Types Packs/Day Years [...] Date Recorded Male 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 - 02/11/2019 9:[address] 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 He [...] Appointment Laboratory Medicine Angélica Granger P.ADurgaCDemetrius [address] [place] [phone] 05/23/2022 Clinical Admitting/Central Communication Scheduling 05/27/2022 Comprehensive Visit Orthopedic Surgery Markus Sams M.D., Ph.D. [address] [place] [phone] 05/29/2022 Office Visit Otorhinolaryngology Dex Matta APRN CDemetriusNFabrice., M.S.N. [address] [place] [phone] 05/29/2022 Office Visit Otorhinolaryngology Nadeem Maradiaga, Edmundo, M.S. [address] [place] [phone] 05/31/2022 Appointment Radiology Guilherme Matt, RASTA, Edmundo, M.S. [address] [place] [phone] 06/05/2022 Appointment Laboratory Medicine Angélica Granger P.A.-C. [address] [place] [phone] 06/19/2022 Appointment Laboratory Medicine Angélica Granger P.A.-C. [address] [place] [phone] 07/03/2022 Appointment Laboratory Medicine Angélica Granger P.A.-C. [address] [place] [phone] 07/17/2022 Appointment Laboratory Medicine Angélica Granger P.A.-C. [address] [place] [phone] 07/31/2022 Appointment Laboratory Medicine Angélica Granger P.A.-C. [address] [place] [phone] 08/14/2022 Appointment Laboratory Medicine Angélica Granger P.A.-C. [address] [place] [phone] 08/28/2022 Appointment Laboratory Medicine Angélica Granger P.A.-C. 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
--- OUTSIDE RECORDS SUMMARY | 2022-05-17 18:58 | XMS_ITS | Encounter Summary ---
:1955 Author Organization [facility] Address [address] [place] [address] Care Team Providers Name Role Phone Elsewhere, [...] LATERAL 2 VIEWS RAD DX CHEST [address] [place] [address] [place] [phone] [place] [phone] Fax: Referral ID Status Reason Start Date Expiration Date Visits Requ ested Visits Authorized [id number] Closed 03/01/2019 02/29/2020 1 1 Encounter Details Date Type Department Care Team Description 03/01/2019 Hospital Encounter Department of Efrem Mohr Pretrans plant Recipient Evaluation Exam; Radiology, Chance Tomlin Chronic Kidney Disease Stage 4 Glomerula r Filtration Rate 15-29 (HCC) Building, in [address] [place] [address] [place] [phone] [place], [place] [phone] (Work) [phone] Social History Tobacco Use Types Packs/Day Years [...] at Date Recorded Male 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 [address] [place] [phone] 05/23/2022 Clinical Admitting/Central Communication Scheduling 05/27/2022 Comprehensive Visit Orthopedic Surgery Markus Sams M.D., Ph.D. [address] [place] [phone] 05/29/2022 Office Visit Otorhinolaryngology Dex Matta APRN, C.N.P., M.S.N. [address] [place] [phone] 05/29/2022 Office Visit Otorhinolaryngology Nadeem Maradiaga, P.A.-C., M.S. [address] [place] [phone] 05/31/2022 Appointment Radiology Guilherme Matt MPAS, P.A.-C., M.S. [address] [place] [phone] 06/05/2022 Appointment Laboratory Medicine Angélica Granger P.A.-C. [address] [place] [phone] 06/19/2022 Appointment Laboratory Medicine Angélica Granger P.A.-C. [address] [place] [phone] 07/03/2022 Appointment Laboratory Medicine Angélica Granger P.A.-C. [address] [place] [phone] 07/17/2022 Appointment Laboratory Medicine Angélica Granger P.A.-C. [address] [place] [phone] 07/31/2022 Appointment Laboratory Medicine Angélica Granger P.A.-C. [address] [place] [phone] 08/14/2022 Appointment Laboratory Medicine Angélica Granger P.A.-C. [address] [place] [phone] 08/28/2022 Appointment Laboratory Medicine Angélica Granger P.A.-C. [address] [place] [phone] documented as of this encounter Procedures Procedure [...] EWS IMPRESSION: Negative chest. RUQ clips. 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
--- OUTSIDE RECORDS SUMMARY | 2022-05-17 18:58 | XMS_ITS | Encounter Summary ---
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 [address] [place] [phone] 05/23/2022 Clinical Admitting/Central Communication Scheduling 05/27/2022 Comprehensive Visit Orthopedic Surgery Markus Sams M.D., Ph.D. [address] [place] [phone] 05/29/2022 Office Visit Otorhinolaryngology Dex Matta APRN, C.N.P., M.S.N. [address] [place] [phone] 05/29/2022 Office Visit Otorhinolaryngology Nadeem Maradiaga, P.Murtaza.-Arley., M.S. [address] [place] [phone] 05/31/2022 Appointment Radiology Guilherme Matt MPAS, Jennifer., M.S. [address] [place] [phone] 06/05/2022 Appointment Laboratory Medicine Angélica Granger P.A.-C. [address] [place] [phone] 06/19/2022 Appointment Laboratory Medicine Angélica Granger P.A.-C. [address] [place] [phone] 07/03/2022 Appointment Laboratory Medicine Angélica Granger P.A.-C. [address] [place] [phone] 07/17/2022 Appointment Laboratory Medicine Angélica Granger P.A.-C. [address] [place] [phone] 07/31/2022 Appointment Laboratory Angélica Royal P.A.-C. [address] [place] [phone] 08/14/2022 Appointment Laboratory Angélica Royal P.A.-C. [address] [place] [phone] 08/28/2022 Appointment Laboratory Angélica Royal P.A.-C. [address] [place] [phone] documented as of this encounter Visit Diagnoses Not on filedocumented in this encounter Additional Health Concerns Assessment Noted Time PHQ-9 Depression Total Score: 5 03/02/2019 10:51 AM CD T documented as of this encounter Care Teams Monitor And Storage Bin Tender Relationship Specialty Start Date End Date Elsewhere, Pcp PCP - General Family Medicine 07/29/17 documented as of this encounter
--- OUTSIDE RECORDS SUMMARY | 2022-05-17 18:58 | XMS_ITS | Encounter Summary ---
:1955 Author Organization [facility] Address [address] [place] [address] Care Team Providers Name Role Phone Elsewhere, Pcp Primary Care Provider Unavailable Encounter Details Date Type Department Care Team Description 02/12/2019 Hospital Encounter Department of Salvador Brewster splant Recipient Evaluation Exam; Laboratory Medicine T PDemetriusADurgaC. 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 [address] [place] [phone] 05/23/2022 Clinical Admitting/Central Communication Scheduling 05/27/2022 Comprehensive Visit Orthopedic Surgery Markus Sams M.D., Ph.D. [address] [place] [phone] 05/29/2022 Office Visit Otorhinolaryngology Dex Matta APRN CDemetriusNFabrice., M.S.N. [address] [place] [phone] 05/29/2022 Office Visit Otorhinolaryngology Nadeem Maradiaga, Jennifer., M.S. [address] [place] [phone] 05/31/2022 Appointment Radiology Guilherme Matt MPAS, Edmundo, M.S. [address] [place] [phone] 06/05/2022 Appointment Laboratory Medicine Angélica Granger P.A.-C. [address] [place] [phone] 06/19/2022 Appointment Laboratory Medicine Angélica Granger P.A.-C. [address] [place] [phone] 07/03/2022 Appointment Laboratory Medicine Angélica Granger P.A.-C. [address] [place] [phone] 07/17/2022 Appointment Laboratory Medicine Angélica Granger P.A.-C. [address] [place] [phone] 07/31/2022 Appointment Laboratory Medicine Angélica Granger P.A.-C. [address] [place] [phone] 08/14/2022 Appointment Laboratory Medicine Angélica Granger P.A.-C. [address] [place] [phone] 08/28/2022 Appointment Laboratory Medicine Angélica Granger P.A.-C. 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
--- OUTSIDE RECORDS SUMMARY | 2022-05-17 18:58 | XMS_ITS | Encounter Summary ---
:1955 Author Organization [facility] Address [address] [place] [address] Care Team Providers Name Role Phone Elsewhere, Pcp Primary Care Provider Unavailable Reason for Visit Reason Comments Transplant Recipient Evaluation Appointment Request (Routine) - Closed Specialty Diagnoses / Procedures Referred By Contact Refer red To Contact Transplant Kidney Diagnoses [facility] Religion Pancreas Procedures [place] [address] [place] [address] Phone: Referral ID Status Reason Start Date Expiration Date Visits Requ ested Visits Authorized [id number] Closed 02/10/2019 02/10/2020 1 1 Encounter Details Date Type Department Care Team Description 03/01/2019 Office Visit Curt Merrill, Efrem, Hypert ension And Chronic Kidney Disease Stage 1 To 4 (Primary Dx); [facility] for M.D. Pretransplant Recipient Evaluation Exam; Transplantation and [address] [place] [address] Bipolar I Disorder (HCC); Clinical Regeneration in [facility] [place] [address] [place] [address] [place] [address] (Work) [phone] Social History Tobacco Use Types Packs/Day Years [...] 12/15/2021 organizations such as mu-ism groups, unions, fraAlignAlytics or athletic groups, or school groups? 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 [address] [place] [phone] 05/23/2022 Clinical Admitting/Central Communication Scheduling 05/27/2022 Comprehensive Visit Orthopedic Surgery Markus Sams M.D., Ph.D. [address] [place] [phone] 05/29/2022 Office Visit Otorhinolaryngology Dex Matta APRN, C.N.P., M.S.N. [address] [place] [phone] 05/29/2022 Office Visit Otorhinolaryngology Nadeem Maradiaga, P.Murtaza.-C., M.S. [address] [place] [address] [phone] 05/31/2022 Appointment Radiology Guilherme Matt, RASTA, Miri.Marie., M.S. [address] [place] [phone] 06/05/2022 Appointment Laboratory Medicine Angélica Granger P.A.-C. [address] [place] [phone] 06/19/2022 Appointment Laboratory Medicine Angélica Granger P.A.-C. [address] [place] [phone] 07/03/2022 Appointment Laboratory Medicine Angélica Granger P.A.-C. [address] [place] [phone] 07/17/2022 Appointment Laboratory Medicine Angélica Granger P.A.-C. [address] [place] [address] [phone] 07/31/2022 Appointment Laboratory Medicine Angélica Granger P.A.-C. [address] [place] [phone] 08/14/2022 Appointment Laboratory Medicine Angélica Granger P.A.-C. [address] [place] [phone] 08/28/2022 Appointment Laboratory Medicine Angélica Granger P.A.-C. 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
--- OUTSIDE RECORDS SUMMARY | 2022-05-17 18:58 | XMS_ITS | Encounter Summary ---
:1955 Author Organization [facility] Address [address] [place] [address] Care Team Providers Name Role Phone Elsewhere, Pcp Primary Care Provider Unavailable Encounter Details Date Type Department Care Team Description 04/09/2019 Hospital Encounter Department of Angélica Granger ant Liver (HCC); Laboratory Medicine J PDemetriusADurgaC. 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 [address] [place] [phone] 05/23/2022 Clinical Admitting/Central Communication Scheduling 05/27/2022 Comprehensive Visit Orthopedic Surgery Markus Sams M.D., Ph.D. [address] [place] [phone] 05/29/2022 Office Visit Otorhinolaryngology Dex Matta APRN, C.N.P., M.S.N. [address] [place] [phone] 05/29/2022 Office Visit Otorhinolaryngology Nadeem Maradiaga, Jennifer., M.S. [address] [place] [phone] 05/31/2022 Appointment Radiology Guilherme Matt MPAS, Jennifer., M.S. [address] [place] [phone] 06/05/2022 Appointment Laboratory Medicine Angélica Granger P.A.-C. [address] [place] [address] [phone] 06/19/2022 Appointment Laboratory Medicine Angélica Granger P.A.-C. [address] [place] [phone] 07/03/2022 Appointment Laboratory Medicine Angélica Granger P.A.-C. [address] [place] [phone] 07/17/2022 Appointment Laboratory Medicine Angélica Granger P.A.-C. [address] [place] [phone] 07/31/2022 Appointment Laboratory Medicine Angélica Granger P.A.-C. [address] [place] [phone] 08/14/2022 Appointment Laboratory Medicine Angélica Granger P.A.-C. [address] [place] [phone] 08/28/2022 Appointment Laboratory Medicine Angélica Granger P.A.-C. [address] [place] [phone] documented as of this encounter Visit Diagnoses Diagnosis Transplant Liver (HCC) Medication Therapy Correction Not Anticoa gulant documented in this encounter Additional Health Concerns Assessment Noted Time PHQ-9 Depression Total Score: 5 03/02/2019 10:51 AM CD T documented as of this encounter Care Teams Reviewer Sales Relationship Specialty Start Date End Date Elsewhere, Pcp PCP - General Family Medicine 07/29/17 documented as of this encounter
--- OUTSIDE RECORDS SUMMARY | 2022-05-17 18:58 | XMS_ITS | Encounter Summary ---
:1955 Author Organization [facility] Address [address] [place] [address] Care Team Providers Name Role Phone Elsewhere, Pcp Primary Care Provider Unavailable Encounter Details Date Type Department Care Team Description 04/09/2019 Orders Only Curt Johnson, Ca lant Liver (HCC) (Primary Dx); Center for Argelia Hernandez R.N., Medication Ther apy Observatory Director Not Anticoagulant Transplantation and C.C.T.C. 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 [address] [place] [phone] 05/23/2022 Clinical Admitting/Central Communication Scheduling 05/27/2022 Comprehensive Visit Orthopedic Surgery Markus Sams M.D., Ph.D. [address] [place] [phone] 05/29/2022 Office Visit Otorhinolaryngology Dex Matta, INTERMEDIATE TEACHER, C.N.P., M.S.N. [address] [place] [phone] 05/29/2022 Office Visit Otorhinolaryngology Nadeem Maradiaga, P.Murtaza.-C., M.S. [address] [place] [phone] 05/31/2022 Appointment Radiology Guilherme Matt MPAS, Jennifer., M.S. [address] [place] [address] [phone] 06/05/2022 Appointment Laboratory Medicine Angélica Granger P.A.-C. [address] [place] [address] [phone] 06/19/2022 Appointment Laboratory Medicine Angélica Granger P.A.-C. [address] [place] [phone] 07/03/2022 Appointment Laboratory Medicine Angélica Granger P.A.-C. [address] [place] [phone] 07/17/2022 Appointment Laboratory Medicine Angélica Granger P.A.-C. [address] [place] [phone] 07/31/2022 Appointment Laboratory Medicine Angélica Granger P.A.-C. [address] [place] [phone] 08/14/2022 Appointment Laboratory Angélica Royal P.A.-C. [address] [place] [address] [phone] 08/28/2022 Appointment Laboratory Angélica Royal P.A.-C. [address] [place] [phone] documented as of this encounter Visit Diagnoses Diagnosis Transplant Liver (HCC) - Primary Medication Therapy Observatory Director Not Anticoa gulant documented in this encounter Additional Health Concerns Assessment Noted Time PHQ-9 Depression Total Score: 5 03/02/2019 10:51 AM CD T documented as of this encounter Care Teams Conservator Artifacts Relationship Specialty Start Date End Date Elsewhere, Pcp PCP - General Family Medicine 07/29/17 documented as of this encounter
--- OUTSIDE RECORDS SUMMARY | 2022-05-17 18:58 | XMS_ITS | Encounter Summary ---
:1955 Author Organization [facility] Address [address] [place] [address] Care Team Providers Name Role Phone Elsewhere, Pcp Primary Care Provider Unavailable Encounter Details Date Type Department Care Team Description 03/03/2019 Office Visit Efrem Malcolm, Pret nsplant Center for M.D. Recipient Evaluation Transplantation and [address] [facility] Exam (Primary Dx) Clinical Regeneration in [place], [place] [phone] [place] [address] [place] [address] (Work) [phone] Social History Tobacco Use Types Packs/Day Years [...] AND SPRINGS documented as of this encounter Progress Notes [...] Angélica Granger P.A.-C. [address] [place] [phone] 05/23/2022 Clinical Admitting/Central Communication Scheduling 05/27/2022 Comprehensive Visit Orthopedic Surgery Markus Sams M.D., Ph.D. [address] [place] [phone] 05/29/2022 Office Visit Otorhinolaryngology Dex Matta APRN C.N.P., M.S.N. [address] [place] [phone] 05/29/2022 Office Visit Otorhinolaryngology Nadeem Maradiaga, Jennifer., M.S. [address] [place] [phone] 05/31/2022 Appointment Radiology Guilherme Matt MPAS, Jennifer., M.S. [address] [place] [phone] 06/05/2022 Appointment Laboratory Medicine Angélica Granger P.A.-C. [address] [place] [address] [phone] 06/19/2022 Appointment Laboratory Medicine Angélica Granger P.A.-C. [address] [place] [phone] 07/03/2022 Appointment Laboratory Medicine Angélica Granger P.A.-C. [address] [place] [phone] 07/17/2022 Appointment Laboratory Medicine Angélica Granger P.A.-C. [address] [place] [phone] 07/31/2022 Appointment Laboratory Medicine Angélica Granger P.A.-C. [address] [place] [phone] 08/14/2022 Appointment Laboratory Medicine Angélica Granger P.A.-C. [address] [place] [phone] 08/28/2022 Appointment Laboratory Medicine Angélica Granger P.A.-C. [address] [place] [phone] documented as of this encounter Visit Diagnoses Diagnosis Pretransplant Recipient Evaluation Exam - Primary documented in this encounter Additional Health Concerns Assessment Noted Time PHQ-9 Depression Total Score: 5 03/02/2019 10:51 AM CD T documented as of this encounter Care Teams Scarfer Relationship Specialty Start Date End Date Elsewhere, Pcp PCP - General Family Medicine 07/29/17 documented as of this encounter
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
--- OUTSIDE RECORDS SUMMARY | 2022-05-17 18:58 | XMS_ITS | Encounter Summary ---
:1955 Author Organization [facility] Address [address] [place] [address] Care Team Providers Name Role Phone Elsewhere, Pcp Primary Care Provider Unavailable Encounter Details Date Type Department Care Team Description 02/12/2019 Clinical Communication Monserrat Owusu [place] for T, P.A.-C. 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 [address] [place] [phone] 05/23/2022 Clinical Admitting/Central Communication Scheduling 05/27/2022 Comprehensive Visit Orthopedic Surgery Markus Sams M.D., Ph.D. [address] [place] [phone] 05/29/2022 Office Visit Otorhinolaryngology Dex Matta APRN, C.N.P., M.S.N. [address] [place] [address] [phone] 05/29/2022 Office Visit Otorhinolaryngology Nadeem Maradiaga, P.A.-C., M.S. [address] [place] [phone] 05/31/2022 Appointment Radiology Guilherme Matt MPAS, P.Murtaza.Marie., M.S. [address] [place] [phone] 06/05/2022 Appointment Laboratory Medicine Angélica Granger P.A.-C. [address] [place] [phone] 06/19/2022 Appointment Laboratory Medicine Angélica Granger P.A.-C. [address] [place] [phone] 07/03/2022 Appointment Laboratory Medicine Angélica Granger P.A.-C. [address] [place] [phone] 07/17/2022 Appointment Laboratory Medicine Angélica Granger P.A.-C. [address] [place] [phone] 07/31/2022 Appointment Laboratory Medicine Angélica Granger P.A.-C. [address] [place] [phone] 08/14/2022 Appointment Laboratory Angélica Royal P.A.-C. [address] [place] [phone] 08/28/2022 Appointment Laboratory Angélica Royal P.A.-C. [address] [place] [phone] documented as of this encounter Visit Diagnoses Diagnosis Pretransplant Recipient Evaluation Exam - Primary Chronic Kidney Disease documented in this encounter Additional Health Concerns Assessment Noted Time PHQ-9 Depression Total Score: 2 08/25/2018 9:45 AM DATA CONVERSION OPERATOR documented as of this encounter Care Teams General Laborer Relationship Specialty Start Date End Date Elsewhere, Pcp PCP - General Family Medicine 07/29/17 documented as of this encounter
--- OUTSIDE RECORDS SUMMARY | 2022-05-17 18:58 | XMS_ITS | Encounter Summary ---
:1955 Author Organization [facility] Address [address] [place] [address] Care Team Providers Name Role Phone Elsewhere, Pcp Primary Care Provider Unavailable Encounter Details Date Type Department Care Team Description 03/02/2019 Hospital Encounter Department of Efrem Mohr Encounte r For Preprocedural Cardiovascular Examination ; Cardiovascular M.D. Pretransplant Recipient Evaluation Exam; Diseases in [address] Kidney Disease Stage 4 Glomerular Filtration Rate 15-29 ([facility]) [address] [phone] Social History Tobacco Use Types Packs/Day Years [...] at Date Recorded Male 05/16/2020 4:27 PM CURTAIN DRIER documented as of this encounter Medications at [...] Laboratory Medicine Angélica Granger P.A.-C. [address] [place] [phone] 05/23/2022 Clinical Admitting/Central Communication Scheduling 05/27/2022 Comprehensive Visit Orthopedic Surgery Markus Sams M.D., Ph.D. [address] [place] [address] [phone] 05/29/2022 Office Visit Otorhinolaryngology Dex Matta APRN, C.N.P., M.S.N. [address] [place] [address] [phone] 05/29/2022 Office Visit Otorhinolaryngology Nadeem Maradiaga, P.A.-C., M.S. [address] [place] [phone] 05/31/2022 Appointment Radiology Guilherme Matt, RASTA, P.Murtaza.Marie., M.S. [address] [place] [phone] 06/05/2022 Appointment Laboratory Medicine Angélica Granger P.A.-C. [address] [place] [address] [phone] 06/19/2022 Appointment Laboratory Medicine Angélica Granger P.A.-C. [address] [place] [phone] 07/03/2022 Appointment Laboratory Medicine Angélica Granger P.A.-C. [address] [place] [phone] 07/17/2022 Appointment Laboratory Medicine Angélica Granger P.A.-C. [address] [place] [phone] 07/31/2022 Appointment Laboratory Medicine Angélica Granger P.A.-C. [address] [place] [phone] 08/14/2022 Appointment Laboratory Medicine Angélica Granger P.A.-C. [address] [place] [phone] 08/28/2022 Appointment Laboratory Medicine Angélica Granger P.A.-C. [address] [place] [phone] documented as of this encounter Procedures Procedure [...] AND LIMITED DOPPLER (03/02/2019 9:05 AM CDT) Patholo gist Method Time Signature Ejection Fraction 62 MC [...] evel Documents below. See PDF For Result Narrative [...] mg (DOBUTREX) 28 mg, intravenous, Once, On Fri03/02/19 at 0915, For 1 dose, Infusion rate: 5-40 mcg/kg/min - see protocol. Premix ba mg in 250 mL documented in this encounter Additional Health Concerns Assessment Noted Time PHQ-9 Depression Total Score: 5 03/02/2019 10:51 AM CD T documented as of this encounter Care Teams Security Compliance Engineer Relationship Specialty Start Date End Date Elsewhere, Pcp PCP - General Family Medicine 07/29/17 documented as of this encounter
--- OUTSIDE RECORDS SUMMARY | 2022-05-17 18:58 | XMS_ITS | Encounter Summary ---
:1955 Author Organization [facility] Address [address] [place] [address] Care Team Providers Name Role Phone Elsewhere, Pcp Primary Care Provider Unavailable Encounter Details Date Type Department Care Team Description 03/24/2019 Orders Only Blanca Luis ansplant Liver (HCC) (Primary Dx); Center for M, R.N. 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 [address] [place] [phone] 05/23/2022 Clinical Admitting/Central Communication Scheduling 05/27/2022 Comprehensive Visit Orthopedic Surgery Markus Sams M.D., Ph.D. [address] [place] [phone] 05/29/2022 Office Visit Otorhinolaryngology Dex Matta, RAMONA, C.N.P., M.S.N. [address] [place] [phone] 05/29/2022 Office Visit Otorhinolaryngology Nadeem Maradiaga, P.Murtaza.-C., M.S. [address] [place] [address] [phone] 05/31/2022 Appointment Radiology Guilherme Matt MPAS, P.Murtaza.Marie., M.S. [address] [place] [address] [phone] 06/05/2022 Appointment Laboratory Medicine Angélica Granger P.A.-C. [address] [place] [phone] 06/19/2022 Appointment Laboratory Medicine Angélica Granger P.A.-C. [address] [place] [phone] 07/03/2022 Appointment Laboratory Medicine Angélica Granger P.A.-C. [address] [place] [phone] 07/17/2022 Appointment Laboratory Medicine Angélica Granger P.A.-C. [address] [place] [phone] 07/31/2022 Appointment Laboratory Medicine Angélica Granger P.A.-C. [address] [place] [phone] 08/14/2022 Appointment Laboratory Medicine Angélica Granger P.A.-C. [address] [place] [phone] 08/28/2022 Appointment Laboratory Medicine Angélica Granger P.A.-C. [address] [place] [phone] documented as of this encounter Results (ABNORMAL) Comprehensive Metabolic Panel (05/11/2019 9:20 AM DYNAMOMETER MECHANIC) Analysis Performed At [facility] Time Signature Potassium, S 3.4 (L) 3.6 - 5.2 05/11/2019 [place] mmol/L 2:34 PM DYNAMOMETER MECHANIC Sodium, S 139 135 - 145 05/11/2019 [place] mmol/L 2:34 PM DYNAMOMETER MECHANIC Chloride, S 98 98 - 107 05/11/2019 [place] mmol/L 2:34 PM DYNAMOMETER MECHANIC Bicarbonate, S 24 22 - 29 05/11/2019 [place] mmol/L 2:34 PM DYNAMOMETER MECHANIC Anion Gap 17 (H) 7 - 15 05/11/2019 [place] 2:34 PM DYNAMOMETER MECHANIC BUN (Blood Urea 51 (H) 8 - 24 05/11/2019 [place] Nitrogen), S mg/dL 2:34 PM DYNAMOMETER MECHANIC Creatinine 3.01 (H) 0.74 - 05/11/2019 [place] 1.35 mg/dL 2:34 PM DYNAMOMETER MECHANIC eGFR-Non 21 (L) >=60 05/11/2019 [place] Black/ mL/min/BSA 2:34 PM DYNAMOMETER MECHANIC [place] Comment: ----ADDITIONAL INFORMATION---- Estimated GFR calculated using the 2009 CKD_EPI creatinine equation. eGFR-Black/ 24 (L) >=60 mL/min/BSA 2018 2:34 PM DYNAMOMETER MECHANIC [place] Comment: ----ADDITIONAL INFORMATION---- Estimated GFR calculated using the 2009 CKD_EPI creatinine equation. Calcium, Total, S 9.2 8.8 - 10.2 mg/dL 05/11/2019 2:34 PM DYNAMOMETER MECHANIC [place] Glucose, S 119 70 - 140 mg/dL 05/11/2019 2:34 PM DYNAMOMETER MECHANIC O YAO Protein, Total, S 6.5 6.3 - 7.9 g/dL 05/11/2019 2:34 P M DYNAMOMETER MECHANIC [place] Albumin, S 4.2 3.5 - 5.0 g/dL 05/11/2019 2:34 PM DYNAMOMETER MECHANIC O YAO Aspartate Aminotransferase 24 8 - 48 U/L 05/11/2019 2 :34 PM DYNAMOMETER MECHANIC [place] (AST), S Alkaline Phosphatase, S 84 40 - 129 U/L 05/11/2019 2: 34 PM DYNAMOMETER MECHANIC [place] Alanine Aminotransferase (ALT), 22 7 - 55 U/L 019 2:34 PM DYNAMOMETER MECHANIC [place] S Bilirubin, Total, S 0.5 <=1.2 mg/dL 05/11/2019 2:34 PM DYNAMOMETER MECHANIC [place] Specimen Anatomical Collection Method Collection Time Receive d Time (Source) Location / / Volume Laterality Blood (Blood, 05/11/2019 9:20 AM 05/11/20 1:34 Venous) DYNAMOMETER MECHANIC PM DYNAMOMETER MECHANIC Willis Mcdermott M.D. LAB BLOOD ADD-ON Performing Organization Address City/State/ZIP Code Phon e Number [facility] [address] [place] [address] [place] [facility] [place] [facility] [place] [address] System in [place] [address] (ABNORMAL) Tacrolimus, B (05/11/2019 9:20 AM DYNAMOMETER MECHANIC) P athologist Signature Tacrolimus, B 2.4 (L) 5.0-15.0 05/12/2019 [facility] (Trough) 1:04 PM DYNAMOMETER MECHANIC ng/mL Comment: ----ADDITIONAL INFORMATION---- Target steady-state trough concentration s vary depending on the type of transplant, concomitant immunosuppressio n, clinical/institutional protocols, and time post-transplant. Results should be interpreted in conjunction with this clinical information and any physic al signs/symptoms of rejection/toxicity. Testing performed by Liquid Chromatograp hy-Tandem Mass Spectrometry (LC-MS/MS). This test was developed and its performa nce characteristics determined by [facility] in a manner consistent with CLIA requirements. This test has not been cleared or approved by the U.S. Mer d and Drug Administration. Specimen Anatomical Collection Method Collection Time Receive d Time (Source) Location / / Volume Laterality Blood (Blood, 05/11/2019 9:20 AM 05/12/20 7:37 Venous) DYNAMOMETER MECHANIC AM DYNAMOMETER MECHANIC Willis Mcdermott M.D. LAB BLOOD NON ADD-ON Performing Organization Address City/State/ZIP Code Phon e Number [facility] [address] [place] [address] [facility] [place] [address] Laboratory Medicine and Pathology [address] [place] documented in this encounter Visit Diagnoses Diagnosis Transplant Liver (HCC) - Primary Medication Therapy Die Maker Bench Stamping Not Anticoa gulant documented in this encounter Additional Health Concerns Assessment Noted Time PHQ-9 Depression Total Score: 5 03/02/2019 10:51 AM CD T documented as of this encounter Care Teams Cantilever Crane Operator Relationship Specialty Start Date End Date Elsewhere, Pcp PCP - General Family Medicine 07/29/17 documented as of this encounter
--- OUTSIDE RECORDS SUMMARY | 2022-05-17 18:59 | XMS_ITS | Encounter Summary ---
:1955 Author Organization [facility] Address [address] [place] [address] Care Team Providers Name Role Phone Elsewhere, Pcp Primary Care Provider Unavailable Reason for Visit Reason Onset Date Comments Telephone 11/05/2018 Lab questions Encounter Details Date Type Department Care Team Description 11/05/2018 Clinical Curt Marie, Teleph one (Lab Communication Center for carina Cortez) Transplantation and MDemetriusSSteve, Clinical Regeneration R.N., in [facility] C.C.T.C [address] [facility] [address] [facility] [phone] [facility] [phone] [place] [address] Social History Tobacco Use Types Packs/Day Years [...] at Date Recorded Male 05/16/2020 4:27 PM PRENATAL NURSE documented as of 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 [address] [place] [phone] 05/23/2022 Clinical Admitting/Central Communication Scheduling 05/27/2022 Comprehensive Visit Orthopedic Surgery Markus Sams M.D., Ph.D. [address] [place] [phone] 05/29/2022 Office Visit Otorhinolaryngology Dex Matta APRN, C.NDemetriusP., M.S.N. [address] [place] [phone] 05/29/2022 Office Visit Otorhinolaryngology Nadeem Maradiaga, Edmundo, M.S. [address] [place] [phone] 05/31/2022 Appointment Radiology Guilherme Matt, RASTA, Edmundo, M.S. [address] [place] [phone] 06/05/2022 Appointment Laboratory Medicine Angélica Granger P.A.-C. [address] [place] [phone] 06/19/2022 Appointment Laboratory Medicine Angélica Granger P.A.-C. [address] [place] [phone] 07/03/2022 Appointment Laboratory Medicine Angélica Granger P.A.-C. [address] [place] [phone] 07/17/2022 Appointment Laboratory Medicine Angélica Granger P.A.-C. [address] [place] [phone] 07/31/2022 Appointment Laboratory Medicine Angélica Granger P.A.-C. [address] [place] [phone] 08/14/2022 Appointment Laboratory Medicine Angélica Granger P.A.-C. [address] [place] [phone] 08/28/2022 Appointment Laboratory Medicine Angélica Granger P.A.-C. [address] [place] [phone] documented as of this encounter Visit Diagnoses Not on filedocumented in this encounter Additional Health Concerns Assessment Noted Time PHQ-9 Depression Total Score: 2 08/25/2018 9:45 AM PRENATAL NURSE documented as of this encounter Care Teams Inker Relationship Specialty Start Date End Date Elsewhere, Pcp PCP - General Family Medicine 07/29/17 documented as of this encounter
--- OUTSIDE RECORDS SUMMARY | 2022-05-17 18:59 | XMS_ITS | Encounter Summary ---
:1955 Author Organization [facility] Address [address] [place] [address] Care Team Providers Name Role Phone Elsewhere, Pcp Primary Care Provider Unavailable Reason for Visit Reason Comments Med Refill Encounter Details Date Type Department Care Team Description 12/09/2018 Refill Curt [place], [place], Leonid Camejo M.D. 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 [address] [place] [phone] 05/23/2022 Clinical Admitting/Central Communication Scheduling 05/27/2022 Comprehensive Visit Orthopedic Surgery Markus Sams M.D., Ph.D. [address] [place] [phone] 05/29/2022 Office Visit Otorhinolaryngology Dex Matta, RAMONA, C.N.P., M.S.N. [address] [place] [phone] 05/29/2022 Office Visit Otorhinolaryngology Nadeem Maradiaga, P.Murtaza.-Arley., M.S. [address] [place] [phone] 05/31/2022 Appointment Radiology Guilherme Matt MPAS, Jennifer., M.S. [address] [place] [phone] 06/05/2022 Appointment Laboratory Medicine Angélica Granger P.A.-C. [address] [place] [phone] 06/19/2022 Appointment Laboratory Medicine Angélica Granger P.A.-C. [address] [place] [phone] 07/03/2022 Appointment Laboratory Medicine Angélica Granger P.A.-C. [address] [place] [phone] 07/17/2022 Appointment Laboratory Medicine nAgélica Granger P.A.-C. [address] [place] [phone] 07/31/2022 Appointment Laboratory Medicine Angélica Granger P.A.-C. [address] [place] [phone] 08/14/2022 Appointment Laboratory Medicine Angélica Granger P.A.-C. [address] [place] [address] [phone] 08/28/2022 Appointment Laboratory Medicine Angélica Granger P.A.-C. [address] [place] [phone] documented as of this encounter Visit Diagnoses Diagnosis Transplant Liver (HCC) documented in this encounter Additional Health Concerns Assessment Noted Time PHQ-9 Depression Total Score: 2 08/25/2018 9:45 AM ENVIRONMENTAL STUDIES FACULTY MEMBER documented as of this encounter Care Teams Funeral Home Assistant Relationship Specialty Start Date End Date Elsewhere, Pcp PCP - General Family Medicine 07/29/17 documented as of this encounter
--- OUTSIDE RECORDS SUMMARY | 2022-05-17 18:59 | XMS_ITS | Encounter Summary ---
:1955 Author Organization [facility] Address [address] [place] [address] Care Team Providers Name Role Phone Elsewhere, Pcp Primary Care Provider Unavailable Encounter Details Date Type Department Care Team Description 10/29/2018 Hospital Encounter Department of Jacqueline Soto Liver Laboratory Medicine Edmundo Azevedo, M.S. 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 [address] [place] [phone] 05/23/2022 Clinical Admitting/Central Communication Scheduling 05/27/2022 Comprehensive Visit Orthopedic Surgery Markus Sams M.D., Ph.D. [address] [place] [phone] 05/29/2022 Office Visit Otorhinolaryngology Dex Matta APRN CDemetriusNJuan Miguel, M.S.N. [address] [place] [phone] 05/29/2022 Office Visit Otorhinolaryngology Nadeem Maradiaga, Jennifer., M.S. [address] [place] [phone] 05/31/2022 Appointment Radiology Guilherme Matt, RASTA, Edmundo, M.S. [address] [place] [phone] 06/05/2022 Appointment Laboratory Medicine Angélica Granger P.A.-C. [address] [place] [phone] 06/19/2022 Appointment Laboratory Medicine Angélica Granger P.A.-C. [address] [place] [phone] 07/03/2022 Appointment Laboratory Medicine Angélica Granger P.A.-C. [address] [place] [phone] 07/17/2022 Appointment Laboratory Medicine Angélica Granger P.A.-C. [address] [place] [phone] 07/31/2022 Appointment Laboratory Medicine Darlinganeesh Angélica Stern P.A.-C. [address] [place] [phone] 08/14/2022 Appointment Laboratory Medicine Angélica Granger Edmundo Stern [address] [place] [phone] 08/28/2022 Appointment Laboratory Medicine Angélica Granger Edmundo Stern [address] [place] [phone] documented as of this encounter Procedures Procedure [...] [place] [address] [place], [place] [address] [facility] documented in this encounter Visit Diagnoses Diagnosis Transplant Liver (HCC) documented in this encounter Additional Health Concerns Assessment Noted Time PHQ-9 Depression Total Score: 2 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
--- OUTSIDE RECORDS SUMMARY | 2022-05-17 18:59 | XMS_ITS | Encounter Summary ---
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 [address] [place] [phone] 05/23/2022 Clinical Admitting/Central Communication Scheduling 05/27/2022 Comprehensive Visit Orthopedic Surgery Markus Sams M.D., Ph.D. [address] [place] [phone] 05/29/2022 Office Visit Otorhinolaryngology Dex Matta APRN, C.N.P., M.S.N. [address] [place] [phone] 05/29/2022 Office Visit Otorhinolaryngology Nadeem Maradiaga, Edmundo, M.S. [address] [place] [phone] 05/31/2022 Appointment Radiology Guilherme Matt MPAS, P.A.-C., M.S. [address] [place] [phone] 06/05/2022 Appointment Laboratory Medicine Angélica Granger P.A.-C. [address] [place] [phone] 06/19/2022 Appointment Laboratory Medicine Angélica Granger P.A.-C. [address] [place] [phone] 07/03/2022 Appointment Laboratory Medicine Angélica Granger P.A.-C. [address] [place] [phone] 07/17/2022 Appointment Laboratory Medicine Angélica Granger P.A.-C. [address] [place] [phone] 07/31/2022 Appointment Laboratory Medicine Angélica Granger P.A.-C. [address] [place] [phone] 08/14/2022 Appointment Laboratory Medicine Angélica Granger P.A.-C. [address] [place] [phone] 08/28/2022 Appointment Laboratory Medicine Angélica Granger P.A.-C. 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
--- OUTSIDE RECORDS SUMMARY | 2022-05-17 18:59 | XMS_ITS | Encounter Summary ---
:1955 Author Organization [facility] Address [address] [place] [address] Care Team Providers Name Role Phone Elsewhere, Pcp Primary Care Provider Unavailable Encounter Details Date Type Department Care Team Description 12/03/2018 Clinical Communication Curt Vega, Casi [facility] for M, LODGING FACILITIES MANAGER, C.N.P., Transplantation and D.N.P. 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 [address] [place] [phone] 05/23/2022 Clinical Admitting/Central Communication Scheduling 05/27/2022 Comprehensive Visit Orthopedic Surgery Markus Sams M.D., Ph.D. [address] [place] [phone] 05/29/2022 Office Visit Otorhinolaryngology Dex Matta, RAMONA, C.N.P., M.S.N. [address] [place] [phone] 05/29/2022 Office Visit Otorhinolaryngology Nadeem Maradiaga, P.Murtaza.-Arley., M.S. [address] [place] [phone] 05/31/2022 Appointment Radiology Guilherme Matt MPAS, Jennifer., M.S. [address] [place] [phone] 06/05/2022 Appointment Laboratory Medicine Angélica Granger P.A.-C. [address] [place] [phone] 06/19/2022 Appointment Laboratory Medicine Angélica Granger P.A.-C. [address] [place] [address] [phone] 07/03/2022 Appointment Laboratory Medicine Angélica Granger P.A.-C. [address] [place] [address] [phone] 07/17/2022 Appointment Laboratory Medicine Angélica Granger P.A.-C. [address] [place] [phone] 07/31/2022 Appointment Laboratory Medicine Angélica Granger P.A.-C. [address] [place] [address] [phone] 08/14/2022 Appointment Laboratory Medicine Angélica Granger P.A.-C. [address] [place] [phone] 08/28/2022 Appointment Laboratory Medicine Angélica Granger P.A.-C. [address] [place] [phone] documented as of this encounter Results HLA Class II SAB Antibody Screen (12/14/2018 1:10 PM CDT) [facility] Method Time Signature Class II SAB Negative Not Applicable 12/17/2018 Overall 9:04 AM CDT Result Class II SAB 0 12/17/2018 cPRA 9:04 AM CDT Comment: ----ADDITIONAL INFORMATION---- This PRA is a [facility] ue Typing Laboratory calculated PRA. PRA is based on the antigen frequency of the Tissue Typing patient a nd donor population. ??PRA reflects all antibodie s with a normalized value (MFI) above 300. SAB DRB1 Specificity NONE 12/17/2018 9:04 AM CDT SAB [id number] Specificity NONE 12/17/2018 9:04 A M CDT SAB DQB1 Specificity NONE 12/17/2018 9:04 AM CDT SAB DPB1 Specificity NONE 12/17/2018 9:04 AM CDT Comment: ----ADDITIONAL INFORMATION---- Method: [facility] Performing Laboratory CLIA# [id number] Specimen Anatomical Collection Method Collection Time Receive d Time (Source) Location / / Volume Laterality Blood (Blood, 12/14/2018 1:10 PM 12/16/19 19 Venous) CDT 12:03 PM CDT Resulting Agency Comment Mailed In Specimen Kandace Balderas APRN, C.N.P., D.N.P. LAB HLA ORDERABLE S Performing Organization Address City/State/[facility] Code Phon e Number [facility] - [address] [place], [place] [address] [employer] [facility] [employer] [facility] HLA Class I SAB Antibody Screen (12/14/2018 1:10 PM CDT) [facility] Method Time Signature Class I SAB Positive Not Applicable 12/17/2018 Overall 8:55 AM CDT Result Class I SAB 7 12/17/2018 cPRA 8:55 AM CDT Comment: ----ADDITIONAL INFORMATION---- This PRA is a [facility] ue Typing Laboratory calculated PRA. PRA [...] see below 12/17/2018 8:55 AM CDT Comment: 54[539] Format: Serologic equivalent/abbreviated specificity [Normalized Value] shown in decreasing o rder. Note: A serologic equivalent/abbreviated specifi city displayed multiple times could indicate different alleles. SAB C Specificity NONE 12/17/2018 8:55 AM CDT Comment: ----ADDITIONAL INFORMATION---- Method: [facility] Performing Laboratory CLIA# [id number] Specimen Anatomical Collection Method Collection Time Receive d Time (Source) Location / / Volume Laterality Blood (Blood, 12/14/2018 1:10 PM 12/16/19 19 Venous) CDT 12:03 PM CDT Resulting Agency Comment Mailed In Specimen Kandace Balderas APRN, C.N.P., D.N.P. 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
--- OUTSIDE RECORDS SUMMARY | 2022-05-17 18:59 | XMS_ITS | Encounter Summary ---
:1955 Author Organization [facility] Address [address] [place] [address] Care Team Providers Name Role Phone Elsewhere, Pcp Primary Care Provider Unavailable Reason for Referral Outpatient (Routine) - Closed Specialty Diagnoses / Procedures Referred By Contact Refer red To Contact Nephrology and Diagnoses Pretransplant Recipient Evaluation Exam Chronic Kidney Disease Stage 4 Glomerular Filtration Rate 15-29 (HCC) Efrem Mohr M.D. [facility] Hypertension [address] [place] [phone] Referral ID Status Reason Start Date Expiration Date Visits Requ ested Visits Authorized [id number] Closed 02/10/2019 02/10/2020 1 1 Specialty Diagnoses / Procedures Referred By Contact Refer red To Contact Efrem Mohr M.D. [facility] [address] [place] [phone] Referral ID Status Reason Start Date Expiration Date Visits Requ ested Visits Authorized ransplant (Routine) - Closed Specialty Diagnoses / Procedures Referred By Contact Refer red To Contact Transplant Surgery / Diagnoses Pretransplant Recipient Evaluation Exam Chronic Kidney Disease Stage 4 Glomerular Filtration Rate 15-29 (HCC) Efrem Mohr M.D. [facility] Transplant [address] [place] [phone] Referral ID Status Reason Start Date Expiration Date Visits Requ ested Visits Authorized [id number] Closed 02/10/2019 02/10/2020 1 1 ransplant (Routine) - Closed Specialty Diagnoses / Procedures Referred By Contact Refer red To Contact Transplant Surgery / Diagnoses Pretransplant Recipient Evaluation Exam Chronic Kidney Disease Stage 4 Glomerular Filtration Rate 15-29 ([facility]) Efrem Mohr M.D. [facility] Transplant [address] [place] [phone] Referral ID Status Reason Start Date Expiration Date Visits Requ ested Visits Authorized [id number] Closed 02/10/2019 02/10/2020 1 1 Reason for Visit Reason Onset Date Comments Need Orders 02/10/2019 Encounter Details Date Type Department Care Team Description 02/10/2019 Clinical Communication Jose Malcolm, Need Orders Center for M[facility]. 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 Mohr. Please order Testing. Thank you! documented in this encounter Plan of Treatment Upcoming Encounters Date Type Specialty Care Team Description 05/22/2022 Appointment Laboratory Medicine Angélica Granger P.A.-Arley. [address] [place] [phone] 05/23/2022 Clinical Admitting/Central Communication Scheduling 05/27/2022 Comprehensive Visit Orthopedic Surgery Markus Sams M.D., Ph.D. [address] [place] [phone] 05/29/2022 Office Visit Otorhinolaryngology Dex Matta APRN, C.N.P., M.S.N. [address] [place] [phone] 05/29/2022 Office Visit Otorhinolaryngology Nadeem Mardaiaga P.Murtaza.-Arley., M.S. [address] [place] [phone] 05/31/2022 Appointment Radiology Guilherme Matt MPAS, P.A.-C., M.S. [address] [place] [phone] 06/05/2022 Appointment Laboratory Medicine Angélica Granger P.A.-C. [address] [place] [phone] 06/19/2022 Appointment Laboratory Medicine Angélica Granger P.A.-C. [address] [place] [phone] 07/03/2022 Appointment Laboratory Medicine Angélica Granger P.A.-C. [address] [place] [phone] 07/17/2022 Appointment Laboratory Medicine Angélica Granger P.A.-C. [address] [place] [phone] 07/31/2022 Appointment Laboratory Medicine Angélica Granger P.A.-C. [address] [place] [phone] 08/14/2022 Appointment Laboratory Medicine Angélica Granger P.A.-C. [address] [place] [phone] 08/28/2022 Appointment Laboratory Medicine Angélica Granger P.A.-C. [address] [place] [phone] Scheduled Referrals Name Type Priority Associated Diagnoses [...] AND LIMITED DOPPLER (03/02/2019 9:05 AM CDT) [facility] gist Method Time Signature Ejection Fraction 62 [...] effusion. For the complete report, see the [employer] Documents below. See PDF For Result Narrative 03/02/2019 9:39 AM CDT For the complete report, see the [employer] Documents below. Final Impressions 1. Dobutamine stress [...] Urine, Clean Catch (03/01/2019 10:35 AM CDT) [facility] Method Time Signature Source Midstream 03/01/2019 10:35 [...] M.D. LAB URINE ORDERABLES Performing Organization Address City/[facility] Phon e Number [facility] - [address] [place] [address] 05 [facility] Bacterial Culture, Aerobic + Susc, Urine (03/01/2019 [...] - GENERAL O RDERABLES Performing Organization Address [facility] Phon e Number [facility] - [address] [place] [address] [facility] ECG 12 Lead (03/01/2019 10:20 AM CDT) P athologist Signature Ventricular Rate 59 BPM MUSE ECG/Min OH Interval 166 ms MUSE QRSD Interval 92 ms MUSE QT Interval 440 ms MUSE QTC Interval 435 ms MUSE P [place] 27 degrees MUSE R [place] -7 degrees MUSE T Wave [place] 45 degrees MUSE Specimen Anatomical Collection Method [...] Mohr M.D. ECG ORDERABLES Performing Organization Address [facility] Phon e Number MUSE MUSE NA DX Chest AP or PA and [...] Routine Screen, Plasma (03/01/2019 8:38 AM CDT) athologist Signature HIV-1/-2 Ag Negative Negative 03/01/2019 [...] Address City/State/ZIP Code Phon e Number [facility] [address] [place], [place] [address] [facility] HCV Ab Scrn w/Reflex to HCV PCR, Serum (03/01/2019 8:38 AM CDT) P athologist Signature HCV Ab Screen, Negative Negative 03/01/2019 S 12:38 PM CDT Comment: Socdpd-mj-rhfczb ratio is <1.00 . Specimen Anatomical Collection Method Collection Time Receive d Time (Source) Location / / Volume Laterality Blood (Blood, 03/01/2019 8:38 AM 03/01/20 19 Venous) CDT 11:29 AM CDT Efrem Mohr M.D. LAB MICROBIOLOGY - BLOOD ORD ERABLES Performing Organization Address City/[facility]/ZIP Code Phon e Number [address] CHIDI Santamaria [facility] 05 [facility] HBs Antibody, Serum (03/01/2019 [...] - BLOOD ORD ERABLES Performing Organization Address City/[facility]/ZIP Code Phon e Number [address] [place] [facility] 05 [facility] Hepatitis B Surface Antigen (03/01/2019 8:38 AM CDT) athologist Signature HBs Antigen, S Negative Negative 03/01/2019 12:20 PM CDT Specimen Anatomical Collection Method Collection Time Receive d Time (Source) Location / / Volume Laterality Blood (Blood, 03/01/2019 8:38 AM 03/01/20 19 Venous) CDT 11:29 AM CDT Efrem Mohr M.D. LAB MICROBIOLOGY - BLOOD ORD ERABLES Performing Organization Address City/[facility]/ZIP Code Phon e Number [address] [place] [facility] 05 [facility] HBc Total Ab, Serum (03/01/2019 8:38 AM CDT) athologist Signature HBc Total Ab, Negative Negative 03/01/2019 S 12:37 PM CDT Specimen Anatomical Collection Method Collection Time Receive d Time (Source) Location / / Volume Laterality Blood (Blood, 03/01/2019 8:38 AM 03/01/20 19 Venous) CDT 11:29 AM CDT Efrem Mohr M.D. LAB MICROBIOLOGY - BLOOD ORD ERABLES Performing Organization Address [facility]/ZIP [facility] Phon e Number [address] [place] [address] [facility] Hepatitis A IgG Ab, Serum (03/01/2019 8:38 AM CDT) athologist Signature Hepatitis A CANCELED 09/21/2019 [facility] IgG Ab, S 4:13 PM CDT [...] - BLOOD ORD ERAKAJAL Performing Organization Address City/[facility] Code Phon e Number [address] [place] [address] SUPPORT [facility] [place] [address] Laboratory Medicine and Pathology [address] [place] [address] Dr. MURILLO QuantiFERON-Tb Gold Plus, Blood (03/01/2019 [...] 19 Venous) CDT 11:08 AM CDT Narrative [facility] SUPPORT TUNDE R - 03/02/2019 12:21 PM CDT Specimen Information: Specimen ID: [id number] Specimen Type: Blood Specimen Collection Start Date: 9 ??8:38 AM Specimen Received Date: 03/01/2019 11:08 AM Specimen ID: [id number] Specimen Type: Blood Specimen Collection Start Date: 9 ??8:38 AM Specimen Received Date: 03/01/2019 11:08 AM Specimen ID: [id number] Specimen Type: Blood Specimen Collection Start Date: 9 ??8:38 AM Specimen Received Date: 03/01/2019 11:08 AM Specimen ID: [id number] Specimen Type: Blood Specimen Collection Start Date: 9 ??8:38 AM Specimen Received Date: 03/01/2019 11:08 AM Efrem Mohr M.D. LAB MICROBIOLOGY - BLOOD ORD ERABLES Performing Organization Address City/State/ZIP Code Phon e Number [facility] [address] [place], [place] [address]ENTER HLA Class II SAB Antibody Screen (03/01/2019 8:38 AM CDT) [facility] Method Time Signature Class II SAB Negative Not Applicable 03/03/2019 Overall 9:31 AM CDT Result Class II SAB 0 03/03/2019 cPRA 9:31 AM CDT Comment: ----ADDITIONAL INFORMATION---- This PRA is a [facility] calculated PRA. PRA is based on the antigen frequency of the Tissue Typing patient a nd donor population. ??PRA reflects all antibodie s with a normalized value (MFI) above 300. SAB DRB1 Specificity NONE 03/03/2019 9:31 AM CDT SAB [id number] Specificity NONE 03/03/2019 9:31 A M CDT SAB DQB1 Specificity NONE 03/03/2019 9:31 AM CDT SAB DPB1 Specificity NONE 03/03/2019 9:31 AM CDT Comment: ----ADDITIONAL INFORMATION---- Method: [facility] Performing Laboratory CLIA# [id number] Specimen Anatomical Collection Method Collection Time Receive d Time (Source) Location / / Volume Laterality Blood (Blood, 03/01/2019 8:38 AM 03/01/20 19 Venous) CDT 10:24 AM CDT Efrem Mohr M.D. LAB HLA ORDERABLES Performing Organization Address City/State/[facility] Code Phon e Number [facility] - [address] [place] [address] 05 [facility] HLA Class I SAB Antibody Screen (03/01/2019 8:38 AM CDT) [facility] Method Time Signature Class I SAB Positive Not Applicable 03/03/2019 Overall 8:25 AM CDT Result Class I SAB 7 03/03/2019 cPRA 8:25 AM CDT Comment: ----ADDITIONAL INFORMATION---- This PRA is a [facility] calculated PRA. [...] ----ADDITIONAL INFORMATION---- Method: [facility] Performing Laboratory CLIA# [id number] Specimen Anatomical Collection Method Collection Time Receive d Time (Source) Location / / Volume Laterality Blood (Blood, 03/01/2019 8:38 AM 03/01/20 19 Venous) CDT 10:24 AM CDT Efrem Mohr M.D. LAB HLA ORDERABLES Performing Organization Address City/[facility]/ZIP Code Phon e Number [facility] - [address] [place] [address] [facility] (ABNORMAL) Troponin T, 5th Generation (03/01/2019 8:38 AM CDT) P athologist Signature Troponin T, 5th 21 (H) <=15 ng/L 03/01/2019 gen 9:51 AM CDT Specimen Anatomical Collection Method Collection Time Receive d Time (Source) Location / / Volume Laterality Blood (Blood, 03/01/2019 8:38 AM 03/01/20 19 8:52 Venous) CDT AM CDT Efrem Mohr M.D. LAB BLOOD ADD-ON Performing Organization Address City/[facility]/ZIP Code Phon e Number [facility] - [address] (ABNORMAL) CMP (Comprehensive Metabolic Panel) (03/01/2019 [...] >=60 03/01/2019 Black/ mL/min/BSA 9:45 AM CDT Moldovan Comment: ----ADDITIONAL INFORMATION---- Estimated GFR calculated using [...] Address City/State/ZIP Code Phon e Number [facility] - [address] [place], [place] [address] [facility] (ABNORMAL) CBC with Differential (03/01/2019 8:38 AM CDT) [facility] Method Time Signature Hemoglobin 12.0 (L) 13.2 [...] Address City/State/ZIP Code Phon e Number [facility] - [address] documented in this encounter Visit Diagnoses [...] Depression Total Score: 2 08/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
--- OUTSIDE RECORDS SUMMARY | 2022-05-17 18:59 | XMS_ITS | Encounter Summary ---
:1955 Author Organization [facility] Address [address] [place] [address] Care Team Providers Name Role Phone Elsewhere, Pcp Primary Care Provider Unavailable Encounter Details Date Type Department Care Team Description 02/09/2019 Clinical Communication Curt Loera, Center for Patricia Azevedo R.N., Transplantation and C.C.T.C. 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 [address] [place] [phone] 05/23/2022 Clinical Admitting/Central Communication Scheduling 05/27/2022 Comprehensive Visit Orthopedic Surgery Markus Sams M.D., Ph.D. [address] [place] [phone] 05/29/2022 Office Visit Otorhinolaryngology Dex Matta APRN, C.NFabrice., M.S.N. [address] [place] [phone] 05/29/2022 Office Visit Otorhinolaryngology Nadeem Maradiaga, Edmundo, M.S. [address] [place] [phone] 05/31/2022 Appointment Radiology Guilherme Matt, Edmundo MAGDALENO, M.S. [address] [place] [phone] 06/05/2022 Appointment Laboratory Medicine Angélica Granger P.A.-C. [address] [place] [phone] 06/19/2022 Appointment Laboratory Medicine Angélica Granger P.A.-C. [address] [place] [phone] 07/03/2022 Appointment Laboratory Medicine Angélica Granger P.A.-C. [address] [place] [phone] 07/17/2022 Appointment Laboratory Medicine Angélica Granger P.A.-C. [address] [place] [phone] 07/31/2022 Appointment Laboratory Medicine Angélica Granger P.A.-C. [address] [place] [phone] 08/14/2022 Appointment Laboratory Medicine Angélica Granger P.A.-C. [address] [place] [phone] 08/28/2022 Appointment Laboratory Medicine Angélica Granger P.A.-C. 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
--- OUTSIDE RECORDS SUMMARY | 2022-05-17 18:59 | XMS_ITS | Encounter Summary ---
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 documented in this encounter Plan of Treatment Upcoming Encounters Date Type Specialty Care Team Description 05/22/2022 Appointment Laboratory Medicine Angélica Granger P.A.-C. [address] [place] [phone] 05/23/2022 Clinical Admitting/Central Communication Scheduling 05/27/2022 Comprehensive Visit Orthopedic Surgery Markus Sams M.D., Ph.D. [address] [place] [phone] 05/29/2022 Office Visit Otorhinolaryngology Dex Matta APRN, C.N.P., M.S.N. [address] [place] [phone] 05/29/2022 Office Visit Otorhinolaryngology Nadeem Maradiaga, P.A.-C., M.S. [address] [place] [phone] 05/31/2022 Appointment Radiology Guilherme Matt, RASTA, PEdgar.Marie., M.S. [address] [place] [phone] 06/05/2022 Appointment Laboratory Medicine Angélica Granger P.A.-C. [address] [place] [phone] 06/19/2022 Appointment Laboratory Medicine Angélica Granger P.A.-C. [address] [place] [phone] 07/03/2022 Appointment Laboratory Medicine Angélica Granger P.A.-C. [address] [place] [phone] 07/17/2022 Appointment Laboratory Medicine Angélica Granger P.A.-C. [address] [place] [phone] 07/31/2022 Appointment Laboratory Medicine Angélica Granger P.A.-C. [address] [place] [phone] 08/14/2022 Appointment Laboratory Angélica Royal P.A.-C. [address] [place] [phone] 08/28/2022 Appointment Laboratory Angélica Royal P.A.-C. [address] [place] [phone] documented as of this encounter Visit Diagnoses Not on filedocumented in this encounter Additional Health Concerns Assessment Noted Time PHQ-9 Depression Total Score: 2 08/25/2018 9:45 AM PARASITOLOGIST documented as of this encounter Care Teams Language Teacher Relationship Specialty Start Date End Date Elsewhere, Pcp PCP - General Family Medicine 07/29/17 documented as of this encounter
--- OUTSIDE RECORDS SUMMARY | 2022-05-17 18:59 | XMS_ITS | Encounter Summary ---
:1955 Author Organization [facility] Address [address] [place] [address] Care Team Providers Name Role Phone Elsewhere, Pcp Primary Care Provider Unavailable Reason for Visit Reason Comments Med Refill Encounter Details Date Type Department Care Team Description 12/10/2018 [facility] Leonid Camejo M.D. 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 [address] [place] [phone] 05/23/2022 Clinical Admitting/Central Communication Scheduling 05/27/2022 Comprehensive Visit Orthopedic Surgery Markus Sams M.D., Ph.D. [address] [place] [phone] 05/29/2022 Office Visit Otorhinolaryngology Dex Matta, RAMONA, C.N.P., M.S.N. [address] [place] [phone] 05/29/2022 Office Visit Otorhinolaryngology Nadeem Maradiaga, P.Murtaza.-Arley., M.S. [address] [place] [phone] 05/31/2022 Appointment Radiology Guilherme Matt MPAS, Jennifer., M.S. [address] [place] [phone] 06/05/2022 Appointment Laboratory Medicine Angélica Granger P.A.-C. [address] [place] [phone] 06/19/2022 Appointment Laboratory Medicine Angélica Granger P.A.-C. [address] [place] [phone] 07/03/2022 Appointment Laboratory Medicine Angélica Granger P.A.-C. [address] [place] [phone] 07/17/2022 Appointment Laboratory Medicine Angélica Granger P.A.-C. [address] [place] [phone] 07/31/2022 Appointment Laboratory Medicine Angélica rGanger P.A.-C. [address] [place] [phone] 08/14/2022 Appointment Laboratory Medicine Angélica Granger P.A.-C. [address] [place] [phone] 08/28/2022 Appointment Laboratory Medicine Angélica Granger P.A.-C. [address] [place] [phone] documented as of this encounter Visit Diagnoses Not on filedocumented in this encounter Additional Health Concerns Assessment Noted Time PHQ-9 Depression Total Score: 2 08/25/2018 9:45 AM ZIPPER TRIMMER HAND documented as of this encounter Care Teams Records Section Supervisor Relationship Specialty Start Date End Date Elsewhere, Pcp PCP - General Family Medicine 07/29/17 documented as of this encounter
--- OUTSIDE RECORDS SUMMARY | 2022-05-17 18:59 | XMS_ITS | Encounter Summary ---
:1955 Author Organization [facility] Address [address] [place] [address] Care Team Providers Name Role Phone Elsewhere, Pcp Primary Care Provider Unavailable Encounter Details Date Type Department Care Team Description 12/07/2018 Hospital Encounter Department of [facility] Recipient Evaluation Exam; Laboratory Medicine M, SWITCH INSPECTOR, C.N.P., Mara cadena [facility] Pathology, D.N.PDemetrius Aubrey, in [address] [place] [phone] [place] [address] [place], [place] (Work) [phone] Social History Tobacco Use Types Packs/Day Years [...] Recorded Male 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 [address] [place] [phone] 05/29/2022 Office Visit Otorhinolaryngology Dex Matta APRN, C.NDemetriusP., M.S.N. [address] [place] [phone] 05/29/2022 Office Visit Otorhinolaryngology Nadeem Maradiaga, PMaryanne., M.S. [address] [place] [phone] 05/31/2022 Appointment Radiology Guilherme Matt, RASTA, Edmundo, M.S. [address] [place] [phone] 06/05/2022 Appointment Laboratory Medicine Angélica Granger P.A.-C. [address] [place] [phone] 06/19/2022 Appointment Laboratory Medicine Angélica Granger P.A.-C. [address] [place] [phone] 07/03/2022 Appointment Laboratory Medicine Angélica Granger P.A.-C. [address] [place] [phone] 07/17/2022 Appointment Laboratory Medicine Angélica Granger P.A.-C. [address] [place] [phone] 07/31/2022 Appointment Laboratory Medicine Angélica Granger P.A.-C. [address] [place] [phone] 08/14/2022 Appointment Laboratory Medicine Angélica Granger P.A.-C. [address] [place] [phone] 08/28/2022 Appointment Laboratory Medicine Angélica Granger P.A.-C. [address] [place] [phone] documented as of this encounter Procedures Procedure [...] SAB Antibody Screen (12/14/2018 1:10 PM CDT) [facility] Method Time Signature Class II SAB Negative Not Applicable 12/17/2018 Overall 9:04 AM CDT Result Class II SAB 0 12/17/2018 cPRA 9:04 AM CDT Comment: ----ADDITIONAL INFORMATION---- This PRA is a [facility] calculated PRA. PRA is based on the antigen frequency of the Tissue Typing patient a nd donor population. ??PRA reflects all antibodie s with a normalized value (MFI) above 300. SAB DRB1 Specificity NONE 12/17/2018 9:04 AM CDT SAB [id number] Specificity NONE 12/17/2018 9:04 A M CDT SAB DQB1 Specificity NONE 12/17/2018 9:04 AM CDT SAB DPB1 Specificity NONE 12/17/2018 9:04 AM CDT Comment: ----ADDITIONAL INFORMATION---- Method: [facility] Performing Laboratory CLIA# [id number] Specimen Anatomical Collection Method Collection Time Receive d Time (Source) Location / / Volume Laterality Blood (Blood, 12/14/2018 1:10 PM 12/16/19 19 Venous) CDT 12:03 PM CDT Resulting Agency Comment Mailed In Specimen Kandace Balderas APRN, C.N.P., D.N.P. LAB HLA ORDERABLE S Performing Organization Address City/State/ZIP Code Phon e Number [facility] - [address] [place], [place] [address] [facility] HLA Class I SAB Antibody Screen (12/14/2018 1:10 PM CDT) [facility] Method Time Signature Class I SAB Positive Not Applicable 12/17/2018 Overall 8:55 AM CDT Result Class I SAB 7 12/17/2018 cPRA 8:55 AM CDT Comment: ----ADDITIONAL INFORMATION---- This PRA is a [facility] calculated PRA. PRA [...] ----ADDITIONAL INFORMATION---- Method: [facility] Performing Laboratory CLIA# [id number] Specimen Anatomical Collection Method Collection Time Receive d Time (Source) Location / / Volume Laterality Blood (Blood, 12/14/2018 1:10 PM 12/16/19 19 Venous) CDT 12:03 PM CDT Resulting Agency Comment Mailed In Specimen Kandace Balderas APRN, C.N.P., D.N.P. LAB HLA ORDERABLE S Performing Organization Address City/State/ZIP Code Phon e Number [facility] - [address] [place] [id number] [address] [facility] documented in this encounter Visit Diagnoses Diagnosis Pretransplant Recipient Evaluation Exam Chronic Kidney Disease documented in this encounter Additional Health Concerns Assessment Noted Time PHQ-9 Depression Total Score: 2 08/25/2018 9:45 AM FAST FOOD SERVER documented as of this encounter Care Teams Chaser Helper Relationship Specialty Start Date End Date Elsewhere, Pcp PCP - General Family Medicine 07/29/17 documented as of this encounter
--- OUTSIDE RECORDS SUMMARY | 2022-05-17 18:59 | XMS_ITS | Encounter Summary ---
:1955 Author Organization [facility] Address [address] [place] [address] Care Team Providers Name Role Phone Elsewhere, Pcp Primary Care Provider Unavailable Encounter Details Date Type Department Care Team Description 10/23/2018 Clinical Communication Curt Paez, Center for Juanjo Sharp and Edmundo M.S . 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 [address] [place] [phone] 05/23/2022 Clinical Admitting/Central Communication Scheduling 05/27/2022 Comprehensive Visit Orthopedic Surgery Markus Sams M.D., Ph.D. [address] [place] [phone] 05/29/2022 Office Visit Otorhinolaryngology Dex Matta, RAMONA, C.N.P., M.S.N. [address] [place] [phone] 05/29/2022 Office Visit Otorhinolaryngology Nadeem Maradiaga, P.Murtaza.-Arley., M.S. [address] [place] [phone] 05/31/2022 Appointment Radiology Guilherme Matt MPAS, Jennifer., M.S. [address] [place] [phone] 06/05/2022 Appointment Laboratory Medicine Angélica Granger P.A.-C. [address] [place] [phone] 06/19/2022 Appointment Laboratory Medicine Angélica Granger P.A.-C. [address] [place] [phone] 07/03/2022 Appointment Laboratory Medicine Angélica Granger P.A.-C. [address] [place] [phone] 07/17/2022 Appointment Laboratory Medicine Angélica Granger P.A.-C. [address] [place] [phone] 07/31/2022 Appointment Laboratory Medicine Angélica Granger P.A.-C. [address] [place] [phone] 08/14/2022 Appointment Laboratory Medicine Angélica Granger P.A.-C. [address] [place] [phone] 08/28/2022 Appointment Laboratory Medicine Angélica Granger P.A.-C. [address] [place] [phone] documented as of this encounter Results (ABNORMAL) [...] Laterality Blood (Blood, 03/15/2019 8:45 AM 03/17/20 Venous) CDT 10:20 AM CDT Resulting Agency Comment Mailed In Specimen Jacqueline Soto P.A.-C., M.S. LAB BLOOD NON ADD-ON Performing Organization Address City/[facility] Code Phon e Number [address] [place], [place] [address] [facility] (ABNORMAL) Tacrolimus, B (01/05/2019 9:15 [...] [facility]/ZIP Code Phon e Number [facility] [address] [place], [place] [address] [facility] documented in this encounter Visit Diagnoses Diagnosis Transplant Liver (HCC) - Primary documented in this encounter Additional Health Concerns Assessment Noted Time PHQ-9 Depression Total Score: 2 08/25/2018 9:45 AM MARINE DESIGN ENGINEER documented as of this encounter Care Teams Wood Veneer Taper Relationship Specialty Start Date End Date Elsewhere, Pcp PCP - General Family Medicine 07/29/17 documented as of this encounter
--- OUTSIDE RECORDS SUMMARY | 2022-05-17 18:59 | XMS_ITS | Encounter Summary ---
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 [address] [place] [phone] 05/23/2022 Clinical Admitting/Central Communication Scheduling 05/27/2022 Comprehensive Visit Orthopedic Surgery Markus Sams M.D., Ph.D. [address] [place] [phone] 05/29/2022 Office Visit Otorhinolaryngology Dex Matta APRN, C.N.P., M.S.N. [address] [place] [address] [phone] 05/29/2022 Office Visit Otorhinolaryngology Nadeem Maradiaga, P.Murtaza.-C., M.S. [address] [place] [address] [phone] 05/31/2022 Appointment Radiology Guilherme Matt MPAS, PEdgar.Marie., M.S. [address] [place] [phone] 06/05/2022 Appointment Laboratory Medicine Angélica Granger P.A.-C. [address] [place] [phone] 06/19/2022 Appointment Laboratory Medicine Angélica Granger P.A.-C. [address] [place] [phone] 07/03/2022 Appointment Laboratory Medicine Angélica Granger P.A.-C. [address] [place] [phone] 07/17/2022 Appointment Laboratory Medicine Angélica Granger P.A.-C. [address] [place] [phone] 07/31/2022 Appointment Laboratory Medicine Angélica Granger P.A.-C. [address] [place] [phone] 08/14/2022 Appointment Laboratory Medicine Angélica Granger P.A.-C. [address] [place] [address] [phone] 08/28/2022 Appointment Laboratory Medicine Angélica Granger P.A.-C. [address] [place] [address] [phone] documented as of this encounter Visit Diagnoses Diagnosis Hypertension Essential Primary documented in this encounter Additional Health Concerns Assessment Noted Time PHQ-9 Depression Total Score: 2 08/25/2018 9:45 AM WHEEL ASSEMBLER documented as of this encounter Care Teams Resin Filterer Relationship Specialty Start Date End Date Elsewhere, Pcp PCP - General Family Medicine 07/29/17 documented as of this encounter
--- OUTSIDE RECORDS SUMMARY | 2022-05-17 18:59 | XMS_ITS | Encounter Summary ---
:1955 Author Organization [facility] Address [address] [place] [address] Care Team Providers Name Role Phone Elsewhere, Pcp Primary Care Provider Unavailable Reason for Visit Reason Onset Date Comments Dental Return Visit 02/01/2019 Encounter Details Date Type Department Care Team Description 02/01/2019 Clinical Curt Dove, Dental Return Communication Center for Blanca Draper, Visit Transplantation and R.N. 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 [address] [place] [phone] 05/23/2022 Clinical Admitting/Central Communication Scheduling 05/27/2022 Comprehensive Visit Orthopedic Surgery Markus Sams M.D., Ph.D. [address] [place] [phone] 05/29/2022 Office Visit Otorhinolaryngology Dex Matta APRN, C.N.P., M.S.N. [address] [place] [phone] 05/29/2022 Office Visit Otorhinolaryngology Nadeem Maradiaga, P.Murtaza.-Arley., M.S. [address] [place] [phone] 05/31/2022 Appointment Radiology Guilherme Matt, RASTA, PMaryanne., M.S. [address] [place] [address] [phone] 06/05/2022 Appointment Laboratory Medicine Angélica Granger P.A.-C. [address] [place] [address] [phone] 06/19/2022 Appointment Laboratory Medicine Angélica Granger P.A.-C. [address] [place] [address] [phone] 07/03/2022 Appointment Laboratory Medicine Angélica Granger P.A.-C. [address] [place] [phone] 07/17/2022 Appointment Laboratory Medicine Angélica Granger P.A.-C. [address] [place] [phone] 07/31/2022 Appointment Laboratory Medicine Angélica Granger P.A.-C. [address] [place] [phone] 08/14/2022 Appointment Laboratory Medicine Angélica Granger P.A.-C. [address] [place] [phone] 08/28/2022 Appointment Laboratory Medicine Angélica Granger P.A.-C. [address] [place] [phone] documented as of this encounter Visit Diagnoses Not on filedocumented in this encounter Additional Health Concerns Assessment Noted Time PHQ-9 Depression Total Score: 2 08/25/2018 9:45 AM SKIDDER DRIVER documented as of this encounter Care Teams Health And Safety Director Relationship Specialty Start Date End Date Elsewhere, Pcp PCP - General Family Medicine 07/29/17 documented as of this encounter
--- OUTSIDE RECORDS SUMMARY | 2022-05-17 18:59 | XMS_ITS | Encounter Summary ---
:1955 Author Organization [facility] Address [address] [place] [address] Care Team Providers Name Role Phone Elsewhere, Pcp Primary Care Provider Unavailable Reason for Visit Reason Comments Med Refill Encounter Details Date Type Department Care Team Description 12/25/2018 Refill Division of Nephrology and Cheryl Ocampo R.N. 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 - 12/25/2018 3:47 PM CDT Prescription for torsemide forwarded to provider for approval. Outside RN protocol due to historicalentry. documented in this encounter Plan of Treatment Upcoming Encounters Date Type Specialty Care Team Description 05/22/2022 Appointment Laboratory Medicine Angélica Granger P.A.-C. [address] [place] [phone] 05/23/2022 Clinical Admitting/Central Communication Scheduling 05/27/2022 Comprehensive Visit Orthopedic Surgery Markus Sams M.D., Ph.D. [address] [place] [phone] 05/29/2022 Office Visit Otorhinolaryngology Dex Matta APRN, C.N.P., M.S.N. [address] [place] [phone] 05/29/2022 Office Visit Otorhinolaryngology Nadeem Maradiaga P.A.-Arley., M.S. [address] [place] [phone] 05/31/2022 Appointment Radiology Guilherme Matt MPAS, Edmundo, M.S. [address] [place] [address] [phone] 06/05/2022 Appointment Laboratory Medicine Angélica Granger P.A.-C. [address] [place] [phone] 06/19/2022 Appointment Laboratory Medicine Angélica Granger P.A.-C. [address] [place] [phone] 07/03/2022 Appointment Laboratory Medicine Angélica Granger P.A.-C. [address] [place] [phone] 07/17/2022 Appointment Laboratory Medicine Angélica Granger P.A.-C. [address] [place] [phone] 07/31/2022 Appointment Laboratory Medicine Angélica Granger P.A.-C. [address] [place] [phone] 08/14/2022 Appointment Laboratory Medicine Angélica Granger P.A.-C. [address] [place] [phone] 08/28/2022 Appointment Laboratory Medicine Angélica Granger P.A.-C. 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
--- OUTSIDE RECORDS SUMMARY | 2022-05-17 18:59 | XMS_ITS | Encounter Summary ---
:1955 Author Organization [facility] Address [address] [place] [address] Care Team Providers Name Role Phone Elsewhere, Pcp Primary Care Provider Unavailable Reason for Visit Reason Comments Med Refill Encounter Details Date Type Department Care Team Description 12/18/2018 [facility]ame[facility] M[facility] 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 [address] [place] [phone] 05/23/2022 Clinical Admitting/Central Communication Scheduling 05/27/2022 Comprehensive Visit Orthopedic Surgery Markus Sams M.D., Ph.D. [address] [place] [phone] 05/29/2022 Office Visit Otorhinolaryngology Dex Matta, RAMONA, C.N.P., M.S.N. [address] [place] [phone] 05/29/2022 Office Visit Otorhinolaryngology Nadeem Maradiaga, P.Murtaza.-Arley., M.S. [address] [place] [phone] 05/31/2022 Appointment Radiology Guilherme Matt MPAS, Jennifer., M.S. [address] [place] [phone] 06/05/2022 Appointment Laboratory Medicine Angélica Granger P.A.-C. [address] [place] [phone] 06/19/2022 Appointment Laboratory Medicine Angélica Granger P.A.-C. [address] [place] [phone] 07/03/2022 Appointment Laboratory Medicine Angélica Granger P.A.-C. [address] [place] [phone] 07/17/2022 Appointment Laboratory Medicine Angélica Granger P.A.-C. [address] [place] [address] [phone] 07/31/2022 Appointment Laboratory Medicine Angélica Granger P.A.-C. [address] [place] [address] [phone] 08/14/2022 Appointment Laboratory Medicine Angélica Granger P.A.-C. [address] [place] [address] [phone] 08/28/2022 Appointment Laboratory Medicine Angélica Granger P.A.-C. [address] [place] [address] [phone] documented as of this encounter Visit Diagnoses Not on filedocumented in this encounter Additional Health Concerns Assessment Noted Time PHQ-9 Depression Total Score: 2 08/25/2018 9:45 AM ALLIGATOR HUNTER documented as of this encounter Care Teams Jig Inspector Relationship Specialty Start Date End Date Elsewhere, Pcp PCP - General Family Medicine 07/29/17 documented as of this encounter
--- OUTSIDE RECORDS SUMMARY | 2022-05-17 18:59 | XMS_ITS | Encounter Summary ---
:1955 Author Organization [facility] Address [address] [place] [address] Care Team Providers Name Role Phone Elsewhere, Pcp Primary Care Provider Unavailable Encounter Details Date Type Department Care Team Description 10/29/2018 Hospital Encounter Department of Jacqueline Soto Liver Laboratory Medicine Edmundo Azevedo, M.S. 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 [address] [place] [phone] 05/23/2022 Clinical Admitting/Central Communication Scheduling 05/27/2022 Comprehensive Visit Orthopedic Surgery Markus Sams M.D., Ph.D. [address] [place] [phone] 05/29/2022 Office Visit Otorhinolaryngology Dex Matta APRN CDemetriusNJuan Miguel, M.S.N. [address] [place] [phone] 05/29/2022 Office Visit Otorhinolaryngology Nadeem Maradiaga, Jennifer., M.S. [address] [place] [phone] 05/31/2022 Appointment Radiology Guilherme Matt, RASTA, Edmundo, M.S. [address] [place] [phone] 06/05/2022 Appointment Laboratory Medicine Angélica Granger P.A.-C. [address] [place] [phone] 06/19/2022 Appointment Laboratory Medicine Angélica Granger P.A.-C. [address] [place] [phone] 07/03/2022 Appointment Laboratory Medicine Angélica Granger P.A.-C. [address] [place] [phone] 07/17/2022 Appointment Laboratory Medicine Angélica Granger P.A.-C. [address] [place] [phone] 07/31/2022 Appointment Laboratory Medicine Darlinganeesh Angélica Stern P.A.-C. [address] [place] [phone] 08/14/2022 Appointment Laboratory Medicine Angélica Granger Edmundo Stern [address] [place] [phone] 08/28/2022 Appointment Laboratory Medicine Angélica Granger Edmundo Stern [address] [place] [phone] documented as of this encounter Procedures Procedure Name Priority Date/Time Associated Comments Diagnosis TACROLIMUS LEVEL, B Routine 03/15/2019 8:45 AM Transplant Live r Results for this CDT (HCC) procedure are i n the results section. documented in this encounter Results (ABNORMAL) Tacrolimus, B (03/15/2019 8:45 AM CDT) P athologist Signature Tacrolimus, B 1.8 (L) [...] its performa nce characteristics determined by [facility] in a manner consistent with CLIA [...] City/State/ZIP Code Phon e Number [facility] [address] [place], [place] [address] [facility] documented in this encounter Visit Diagnoses Diagnosis Transplant Liver (HCC) documented in this encounter Additional Health Concerns Assessment Noted Time PHQ-9 Depression Total Score: 2 08/25/2018 9:45 AM TRAFFIC 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
--- OUTSIDE RECORDS SUMMARY | 2022-05-17 18:59 | XMS_ITS | Encounter Summary ---
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 documented in this encounter Plan of Treatment Upcoming Encounters Date Type Specialty Care Team Description 05/22/2022 Appointment Laboratory Medicine Angélica Granger P.A.-C. [address] [place] [phone] 05/23/2022 Clinical Admitting/Central Communication Scheduling 05/27/2022 Comprehensive Visit Orthopedic Surgery Markus Sams M.D., Ph.D. [address] [place] [address] [phone] 05/29/2022 Office Visit Otorhinolaryngology Dex Matta, RAMONA, C.N.P., M.S.N. [address] [place] [phone] 05/29/2022 Office Visit Otorhinolaryngology Nadeem Maradiaga, P.Murtaza.-C., M.S. [address] [place] [phone] 05/31/2022 Appointment Radiology Guilherme Matt, RASTA, PEdgar.Marie., M.S. [address] [place] [phone] 06/05/2022 Appointment Laboratory Medicine Angélica Granger P.A.-C. [address] [place] [phone] 06/19/2022 Appointment Laboratory Medicine Angélica Granger P.A.-C. [address] [place] [phone] 07/03/2022 Appointment Laboratory Medicine Angélica Granger P.A.-C. [address] [place] [address] [phone] 07/17/2022 Appointment Laboratory Medicine Angélica Granger P.A.-C. [address] [place] [address] [phone] 07/31/2022 Appointment Laboratory Medicine Angélica Granger P.A.-C. [address] [place] [address] [phone] 08/14/2022 Appointment Laboratory Angélica Royal P.A.-C. [address] [place] [address] [phone] 08/28/2022 Appointment Laboratory Angélica Royal P.A.-C. [address] [place] [phone] documented as of this encounter Visit Diagnoses Not on filedocumented in this encounter Additional Health Concerns Assessment Noted Time PHQ-9 Depression Total Score: 2 08/25/2018 9:45 AM PREDATORY ANIMAL HUNTER documented as of this encounter Care Teams Industrial Maintenance Manager Relationship Specialty Start Date End Date Elsewhere, Pcp PCP - General Family Medicine 07/29/17 documented as of this encounter
--- OUTSIDE RECORDS SUMMARY | 2022-05-17 19:00 | XMS_ITS | Encounter Summary ---
:1955 Author Organization [facility] Address [address] [place] [address] Care Team Providers Name Role Phone Elsewhere, Pcp Primary Care Provider Unavailable Reason for Visit Reason Comments Med Refill Encounter Details Date Type Department Care Team Description 09/23/2018 Refill Division of Nephrology and Ursula Rey, R.N. 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 - 09/23/2018 4:47 PM CDT Prescription forwarded to provider for approval. Outside RN protocol due to historical entry. documented in this encounter Plan of Treatment Upcoming Encounters Date Type Specialty Care Team Description 05/22/2022 Appointment Laboratory Medicine Angélica Granger P.A.-C. [address] [place] [address] [phone] 05/23/2022 Clinical Admitting/Central Communication Scheduling 05/27/2022 Comprehensive Visit Orthopedic Surgery Markus Sams M.D., Ph.D. [address] [place] [phone] 05/29/2022 Office Visit Otorhinolaryngology Dex Matta APRN, C.N.P., M.S.N. [address] [place] [phone] 05/29/2022 Office Visit Otorhinolaryngology Nadeem Maradiaga P.Murtaza.-Arley., M.S. [address] [place] [phone] 05/31/2022 Appointment Radiology Guilherme Matt MPAS, Edmundo, M.S. [address] [place] [address] [phone] 06/05/2022 Appointment Laboratory Medicine Angélica Granger P.A.-C. [address] [place] [phone] 06/19/2022 Appointment Laboratory Medicine Angélica Granger P.A.-C. [address] [place] [phone] 07/03/2022 Appointment Laboratory Medicine Angélica Granger P.A.-C. [address] [place] [phone] 07/17/2022 Appointment Laboratory Medicine Angélica Granger P.A.-C. [address] [place] [phone] 07/31/2022 Appointment Laboratory Medicine Angélica Granger P.A.-C. [address] [place] [phone] 08/14/2022 Appointment Laboratory Medicine Angélica Granger P.A.-C. [address] [place] [phone] 08/28/2022 Appointment Laboratory Medicine Angélica Granger P.A.-C. [address] [place] [phone] documented as of this encounter Visit Diagnoses Not on filedocumented in this encounter Additional Health Concerns Assessment Noted Time PHQ-9 Depression Total Score: 2 08/25/2018 9:45 AM COMMUNITY HEALTH PROGRAM COORDINATOR documented as of this encounter Care Teams Equity Director Relationship Specialty Start Date End Date Elsewhere, Pcp PCP - General Family Medicine 07/29/17 documented as of this encounter
--- OUTSIDE RECORDS SUMMARY | 2022-05-17 19:00 | XMS_ITS | Encounter Summary ---
:1955 Author Organization [facility] Address [address] [place] [address] Care Team Providers Name Role Phone Elsewhere, Pcp Primary Care Provider Unavailable Reason for Visit Transplant (Routine) - Closed Specialty Diagnoses / Procedures Referred By Contact Refer red To Contact Transplant Surgery / Diagnoses Transplant Liver (HCC) Medication Therapy Shelter Not Anticoagulant Anatoliy Bernardo Rochest [facility] Transplant M.D. 200 [place] [address] Referral ID Status Reason Start Date Expiration Date Visits Requ ested Visits Authorized [id number] Closed 07/08/2018 07/08/2019 1 1 Encounter Details Date Type Department Care Team Description 08/26/2018 Comprehensive Visit Department of [place] is Actinic (Primary Dx); Dermatology in [facility], Transplant Li gerry (HCC); [place], C.N.P., Medication The rap Shelter Not Anticoagulant [place] D.N.P. [address] [place] [address] [place] [phone] Social History Tobacco Use Types Packs/Day Years [...] 12/15/2021 organizations such as moravian groups, unions, [employer] or athletic groups, or school groups? 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 OFFICER documented in this encounter Plan of Treatment Upcoming Encounters Date Type Specialty Care Team Description 05/22/2022 Appointment Laboratory Medicine Angélica Granger P.A.-C. [address] [place] [phone] 05/23/2022 Clinical Admitting/Central Communication Scheduling 05/27/2022 Comprehensive Visit Orthopedic Surgery Markus Sams M.D., Ph.D. [address] [place] [phone] 05/29/2022 Office Visit Otorhinolaryngology Dex Matta APRN, C.N.Evan., M.S.N. [address] [place] [phone] 05/29/2022 Office Visit Otorhinolaryngology Nadeem Maradiaga P.A.-C., M.S. [address] [place] [phone] 05/31/2022 Appointment Radiology Guilherme Matt MPAS, P.A.-C., M.S. [address] [place] [phone] 06/05/2022 Appointment Laboratory Medicine Angélica Granger P.A.-C. [address] [place] [phone] 06/19/2022 Appointment Laboratory Medicine Angélica Granger P.A.-C. [address] [place] [phone] 07/03/2022 Appointment Laboratory Medicine Angélica Granger P.A.-C. [address] [place] [phone] 07/17/2022 Appointment Laboratory Medicine Angélica Granger P.A.-C. [address] [place] [phone] 07/31/2022 Appointment Laboratory Medicine Angélica Granger P.A.-C. [address] [place] [phone] 08/14/2022 Appointment Laboratory Medicine Angélica Granger P.A.-C. [address] [place] [phone] 08/28/2022 Appointment Laboratory Medicine Angélica Granger P.A.-C. 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
--- OUTSIDE RECORDS SUMMARY | 2022-05-17 19:00 | XMS_ITS | Encounter Summary ---
:1955 Author Organization [facility] Address [address] [place] [address] Care Team Providers Name Role Phone Elsewhere, Pcp Primary Care Provider Unavailable Encounter Details Date Type Department Care Team Description 08/26/2018 Clinical Communication Angélica Ching [place] for J, P.A.-C. 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 [address] [place] [phone] 05/23/2022 Clinical Admitting/Central Communication Scheduling 05/27/2022 Comprehensive Visit Orthopedic Surgery Markus Sams M.D., Ph.D. [address] [place] [address] [phone] 05/29/2022 Office Visit Otorhinolaryngology Dex Matta APRN, C.N.P., M.S.N. [address] [place] [address] [phone] 05/29/2022 Office Visit Otorhinolaryngology Nadeem Maradiaga, PEdgar.Marie., M.S. [address] [place] [address] [phone] 05/31/2022 Appointment Radiology Guilherme Matt MPAS, PEdgar.Marie., M.S. [address] [place] [phone] 06/05/2022 Appointment Laboratory Medicine Angélica Granger P.A.-C. [address] [place] [phone] 06/19/2022 Appointment Laboratory Medicine Angélica Granger P.A.-C. [address] [place] [phone] 07/03/2022 Appointment Laboratory Medicine Angélica Granger P.A.-C. [address] [place] [address] [phone] 07/17/2022 Appointment Laboratory Medicine Angélica Granger P.A.-C. [address] [place] [address] [phone] 07/31/2022 Appointment Laboratory Medicine Angélica Granger P.A.-C. [address] [place] [address] [phone] 08/14/2022 Appointment Laboratory Medicine Angélica Granger P.A.-C. [address] [place] [address] [phone] 08/28/2022 Appointment Laboratory Medicine Angélica Granger P.A.-C. 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
--- OUTSIDE RECORDS SUMMARY | 2022-05-17 19:00 | XMS_ITS | Encounter Summary ---
:1955 Author Organization [facility] Address [address] [place] [address] Care Team Providers Name Role Phone Elsewhere, Pcp Primary Care Provider Unavailable Reason for Visit Reason Comments Pain Pain Appointment Request (Routine) - Closed Specialty Diagnoses / Procedures Referred By Contact Refer red To Contact Orthopedic Surgery Referral ID Status Reason Start Date Expiration Date Visits Requ ested Visits Authorized [id number] Closed 08/17/2018 08/17/2019 1 1 Encounter Details Date Type Department Care Team Description 08/26/2018 Comprehensive Visit Department of Warner Graves Pain Ankle Right (Primary Dx); Orthopedic Surgery Sada Ayoub Pes Planus Right in [place], [address] [place] [address] [place] [phone] [place], [place] [phone] (Work) [phone] Social History Tobacco Use Types Packs/Day Years [...] at Date Recorded Male 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 Warner Graves M.D. TE INSTRUCTOR documented in this encounter Plan of Treatment Upcoming Encounters Date Type Specialty Care Team Description 05/22/2022 Appointment Laboratory Medicine Angélica Granger P.A.-C. [address] [place] [phone] 05/23/2022 Clinical Admitting/Central Communication Scheduling 05/27/2022 Comprehensive Visit Orthopedic Surgery Markus Sams M.D., Ph.D. [address] [place] [phone] 05/29/2022 Office Visit Otorhinolaryngology Dex Matta APRN, C.N.P., M.S.N. [address] [place] [phone] 05/29/2022 Office Visit Otorhinolaryngology Nadeem Maradiaga, PMaryanne., M.S. [address] [place] [phone] 05/31/2022 Appointment Radiology Guilherme Matt, RASTA, Jennifer., M.S. [address] [place] [phone] 06/05/2022 Appointment Laboratory Medicine Angélica Granger P.A.-C. [address] [place] [phone] 06/19/2022 Appointment Laboratory Medicine Angélica Granger P.A.-C. [address] [place] [phone] 07/03/2022 Appointment Laboratory Medicine Angélica Granger P.A.-C. [address] [place] [phone] 07/17/2022 Appointment Laboratory Medicine Angélica Granger P.A.-C. [address] [place] [phone] 07/31/2022 Appointment Laboratory Medicine Angélica Granger P.A.-C. [address] [place] [phone] 08/14/2022 Appointment Laboratory Medicine Angélica Granger P.A.-C. [address] [place] [phone] 08/28/2022 Appointment Laboratory Medicine Angélica Granger P.A.-C. [address] [place] [phone] documented as of this encounter Visit Diagnoses Diagnosis Pain Ankle Right - Primary Pes Planus Right documented in this encounter Additional Health Concerns Assessment Noted Time PHQ-9 Depression Total Score: 2 08/25/2018 9:45 AM KARATE INSTRUCTOR documented as of this encounter Care Teams Lead Application Architect Relationship Specialty Start Date End Date Elsewhere, Pcp PCP - General Family Medicine 07/29/17 documented as of this encounter
--- OUTSIDE RECORDS SUMMARY | 2022-05-17 19:00 | XMS_ITS | Encounter Summary ---
:1955 Author Organization [facility] Address [address] [place] [address] Care Team Providers Name Role Phone Elsewhere, Pcp Primary Care Provider Unavailable Encounter Details Date Type Department Care Team Description 09/02/2018 Clinical Communication Angélica Ching [place] for J, P.A.-C. 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 [address] [place] [phone] 05/23/2022 Clinical Admitting/Central Communication Scheduling 05/27/2022 Comprehensive Visit Orthopedic Surgery Markus Sams M.D., Ph.D. [address] [place] [address] [phone] 05/29/2022 Office Visit Otorhinolaryngology Dex Matta APRN, C.N.P., M.S.N. [address] [place] [address] [phone] 05/29/2022 Office Visit Otorhinolaryngology Nadeem Maradiaga, PEdgar.Marie., M.S. [address] [place] [address] [phone] 05/31/2022 Appointment Radiology Guilherme Matt MPAS, PEdgar.Marie., M.S. [address] [place] [phone] 06/05/2022 Appointment Laboratory Medicine Angélica Granger P.A.-C. [address] [place] [phone] 06/19/2022 Appointment Laboratory Medicine Angélica Granger P.A.-C. [address] [place] [phone] 07/03/2022 Appointment Laboratory Medicine Angélica Granger P.A.-C. [address] [place] [phone] 07/17/2022 Appointment Laboratory Medicine Angélica Granger P.A.-C. [address] [place] [phone] 07/31/2022 Appointment Laboratory Medicine Angélica Granger P.A.-C. [address] [place] [phone] 08/14/2022 Appointment Laboratory Medicine Angélica Granger P.A.-C. [address] [place] [phone] 08/28/2022 Appointment Laboratory Medicine Angélica Granger P.A.-C. [address] [place] [phone] documented as of this encounter Results (ABNORMAL) Tacrolimus, B (11/02/2018 8:40 AM CDT) P athologist Signature Tacrolimus, B 2.6 (L) 5.0-15.0 11/03/2018 [facility] (Trough) 3:[address] ng/mL [...] performa nce characteristics determined by [facility] in a manner consistent with [...] Organization Address City/State/ZIP Code Phon e Number [facility] [address] [place] [address] [facility] documented in this encounter Visit Diagnoses Diagnosis Transplant Liver (HCC) - Primary documented in this encounter Additional Health Concerns Assessment Noted Time PHQ-9 Depression Total Score: 2 08/25/2018 9:45 AM 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
--- OUTSIDE RECORDS SUMMARY | 2022-05-17 19:00 | XMS_ITS | Encounter Summary ---
:1955 Author Organization [facility] Address [address] [place] [address] Care Team Providers Name Role Phone Elsewhere, Pcp Primary Care Provider Unavailable Encounter Details Date Type Department Care Team Description 09/04/2018 Clinical Communication Curt Medina, Center for Angeline J, Transplantation and Deshawn GREENE, Clinical Regeneration in [place], [place] [address] [place] [address] [address] [place] [phone] Social History Tobacco Use Types Packs/Day Years [...] Date Recorded Male 05/16/2020 4:27 PM RN CCU documented as of this encounter Plan of Treatment Upcoming Encounters Date Type Specialty Care Team Description 05/22/2022 Appointment Laboratory Medicine Angélica Granger P.A.-C. [address] [place] [phone] 05/23/2022 Clinical Admitting/Central Communication Scheduling 05/27/2022 Comprehensive Visit Orthopedic Surgery Markus Sams M.D., Ph.D. [address] [place] [phone] 05/29/2022 Office Visit Otorhinolaryngology Dex Matta APRN, C.N.P., M.S.N. [address] [place] [phone] 05/29/2022 Office Visit Otorhinolaryngology Nadeem Maradiaga, P.Murtaza.-C., M.S. [address] [place] [phone] 05/31/2022 Appointment Radiology Guilherme Matt MPAS, PMaryanne., M.S. [address] [place] [phone] 06/05/2022 Appointment Laboratory Medicine Angélica Granger P.A.-C. [address] [place] [phone] 06/19/2022 Appointment Laboratory Medicine Angélica Granger P.A.-C. [address] [place] [phone] 07/03/2022 Appointment Laboratory Medicine Angélica Granger P.A.-C. [address] [place] [phone] 07/17/2022 Appointment Laboratory Medicine Angélica Granger P.A.-C. [address] [place] [phone] 07/31/2022 Appointment Laboratory Medicine Angélica Granger P.A.-C. [address] [place] [phone] 08/14/2022 Appointment Laboratory Medicine Angélica Granger P.A.-C. [address] [place] [address] [phone] 08/28/2022 Appointment Laboratory Medicine Angélica Granger P.A.-C. [address] [place] [phone] documented as of this encounter Results HLA Class II SAB Antibody Screen (09/15/2018 8:15 AM CDT) [facility] Time Signature Class II SAB Negative Not Applicable 09/18/2018 [facility] Overall 12:26 PM LABORATORIES - Result CDT [facility] Class II SAB 0 09/18/2018 [facility] cPRA 12:26 PM LABORATORIES - CDT [facility] Comment: ----ADDITIONAL INFORMATION---- This PRA is a [facility] ue Typing Laboratory calculated PRA. PRA is based on the antigen frequency of the Tissue Typing patient a nd donor population. ??PRA reflects all antibodie s with a normalized value (MFI) above 300. SAB DRB1 Specificity NONE 09/18/2018 12:26 PM CDT [facility] SAB [id number] Specificity NONE 09/18/2018 12 :26 PM CDT [facility] SAB DQB1 Specificity NONE 09/18/2018 12:26 PM CDT [facility] SAB DPB1 Specificity NONE 09/18/2018 12:26 PM CDT [facility] Comment: ----ADDITIONAL INFORMATION---- Method: Luminex Performing Laboratory CLIA# [id number] Specimen Anatomical Collection Method Collection Time Receive d Time (Source) Location / / Volume Laterality Blood (Blood, 09/15/2018 8:15 AM 09/17/19 19 9:53 Venous) CDT AM CDT Resulting Agency Comment Mailed In Specimen Angeline Hull APRN C.N.P., M.S.N. LAB HLA ORDER OSMEL Performing Organization Address City/State/ZIP Code Phon e Number [facility] LABORATORIES - [address] [place] [address] 05 [facility] HLA Class I SAB Antibody Screen (09/15/2018 8:15 AM CDT) [facility] Method Time Signature Class I SAB Positive Not Applicable 09/18/2018 [facility] Overall 11:05 AM LABORATORIES - Result CDT [facility] Class I SAB 7 09/18/2018 [facility] cPRA 11:05 AM LABORATORIES - CDT [facility] Comment: ----ADDITIONAL INFORMATION---- This PRA is a [facility] Tiss ue Typing Laboratory calculated PRA. PRA is based on the antigen frequency of the Tissue Typing patient a nd donor population. ??PRA reflects all antibodie s with a normalized value (MFI) above 300. SAB A Specificity see below 09/18/2018 11:05 A M CDT [facility] Comment: 29[302] Format: Serologic equivalent/abbreviated specificity [Normalized Value] shown in decreasing o rder. Note: A serologic equivalent/abbreviated specifi city displayed multiple times could indicate different alleles. SAB B Specificity see below 09/18/2018 11:05 A M CDT [facility] Comment: 54[671] Format: Serologic equivalent/abbreviated specificity [Normalized Value] shown in decreasing o rder. Note: A serologic equivalent/abbreviated specifi city displayed multiple times could indicate different alleles. SAB C Specificity NONE 09/18/2018 11:05 AM CD T [facility] LABORATORIES - [place] [facility] Irena Comment: ----ADDITIONAL INFORMATION---- Method: Luminex Performing Laboratory CLIA# [id number] Specimen Anatomical Collection Method Collection Time Receive d Time (Source) Location / / Volume Laterality Blood (Blood, 09/15/2018 8:15 AM 09/17/19 19 9:53 Venous) CDT AM CDT Resulting Agency Comment Mailed In Specimen Angeline Hull APRN, C.N.P., M.S.N. LAB HLA ORDER OSMEL Performing Organization Address City/[facility] Code Phon e Number [facility] - [address] [place] [address] [facility] HIV-1/-2 Ag and Ab Screen, Plasma (09/15/2018 8:15 AM CDT) P athologist Signature HIV-1/-2 Ag Negative Negative 09/16/2018 [facility] and Ab Screen, 1:43 PM CDT [facility] [place] Comment: Negative result does not rule out [...] OGY - BLOOD ORDERABLES Performing Organization Address City/[facility]/ZIP Code Phon e Number [facility] [address] [place] [address] [facility] documented in this encounter Visit Diagnoses Diagnosis Pretransplant Recipient Evaluation Exam - Primary Chronic Kidney Disease documented in this encounter Additional Health Concerns Assessment Noted Time PHQ-9 Depression Total Score: 2 08/25/2018 9:45 AM RN CCU documented as of this encounter Care Teams Field Checker Relationship Specialty Start Date End Date Elsewhere, Pcp PCP - General Family Medicine 07/29/17 documented as of this encounter
--- OUTSIDE RECORDS SUMMARY | 2022-05-17 19:00 | XMS_ITS | Encounter Summary ---
:1955 Author Organization [facility] Address [address] [place] [address] Care Team Providers Name Role Phone Elsewhere, Pcp Primary Care Provider Unavailable Encounter Details Date Type Department Care Team Description 08/27/2018 Orders Only Department of Padmini Hudson Pes Planus Right Orthopedic Surgery in P.A.-C. 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 [address] [place] [phone] 05/23/2022 Clinical Admitting/Central Communication Scheduling 05/27/2022 Comprehensive Visit Orthopedic Surgery Markus Sams M.D., Ph.D. [address] [place] [address] [phone] 05/29/2022 Office Visit Otorhinolaryngology Dex Matta APRN, C.N.P., M.S.N. [address] [place] [address] [phone] 05/29/2022 Office Visit Otorhinolaryngology Nadeem Maradiaga, P.Murtaza.-Arley., M.S. [address] [place] [address] [phone] 05/31/2022 Appointment Radiology Guilherme Matt MPAS, P.Murtaza.Marie., M.S. [address] [place] [phone] 06/05/2022 Appointment Laboratory Medicine Angélica Granger P.A.-C. [address] [place] [phone] 06/19/2022 Appointment Laboratory Medicine Angélica Granger P.A.-C. [address] [place] [phone] 07/03/2022 Appointment Laboratory Medicine Angélica Granger P.A.-C. [address] [place] [address] [phone] 07/17/2022 Appointment Laboratory Medicine Angélica Granger P.A.-C. [address] [place] [address] [phone] 07/31/2022 Appointment Laboratory Medicine Angélica Granger P.A.-C. [address] [place] [address] [phone] 08/14/2022 Appointment Laboratory Medicine Angélica Granger P.A.-C. [address] [place] [address] [phone] 08/28/2022 Appointment Laboratory Medicine Angélica Granger P.A.-C. [address] [place] [phone] documented as of this encounter Visit Diagnoses Diagnosis Pes Planus Right - Primary documented in this encounter Additional Health Concerns Assessment Noted Time PHQ-9 Depression Total Score: 2 08/25/2018 9:45 AM THEATER SET PRODUCTION DESIGNER documented as of this encounter Care Teams Weir Fisher Relationship Specialty Start Date End Date Elsewhere, Pcp PCP - General Family Medicine 07/29/17 documented as of this encounter
--- OUTSIDE RECORDS SUMMARY | 2022-05-17 19:00 | XMS_ITS | Encounter Summary ---
:[address] [facility] Address [address] [place] [address] Care Team Providers Name Role Phone Elsewhere, Pcp Primary Care Provider Unavailable Encounter Details Date Type Department Care Team Description 08/25/2018 Hospital Encounter [facility] Perez P.A.-C. 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 [address] [place] [phone] 05/23/2022 Clinical Admitting/Central Communication Scheduling 05/27/2022 Comprehensive Visit Orthopedic Surgery Markus Sams M.D., Ph.D. [address] [place] [phone] 05/29/2022 Office Visit Otorhinolaryngology Dex Matta APRN CDemetriusNJuan Miguel, M.S.N. [address] [place] [phone] 05/29/2022 Office Visit Otorhinolaryngology Nadeem Maradiaga, Jennifer., M.S. [address] [place] [phone] 05/31/2022 Appointment Radiology Guilherme Matt, RASTA, Edmundo, M.S. [address] [place] [phone] 06/05/2022 Appointment Laboratory Medicine Angélica Granger P.A.-C. [address] [place] [phone] 06/19/2022 Appointment Laboratory Medicine Angélica Granger P.A.-C. [address] [place] [phone] 07/03/2022 Appointment Laboratory Medicine Angélica Granger P.A.-C. [address] [place] [phone] 07/17/2022 Appointment Laboratory Medicine Angélica Granger P.A.-C. [address] [place] [phone] 07/31/2022 Appointment Laboratory Medicine Bárbara Angélica Stern P.A.-C. [address] [place] [phone] 08/14/2022 Appointment Laboratory Medicine Darlinganeesh Angélica Stern P.A.-C. [address] [place] [phone] 08/28/2022 Appointment Laboratory Medicine Angélica Granger P.A.-C. [address] [place] [phone] documented as of this encounter Procedures Procedure Name Priority Date/Time Associated Comments Diagnosis DX FOOT ANKLE RAD - Routine 08/25/2018 12:57 Pain Right Ankle Resul ts for this RIGHT 3 VIEWS (most inpatients PM EMPLOYMENT SUPERVISOR And Joints Right proced ure are in and all Foot the results outpatients) section. documented in this encounter Results DX Foot Ankle Right 3 Views (08/25/2018 12:57 PM EMPLOYMENT SUPERVISOR) Anatomical Region Laterality Modality Lower Extremity, Foot, Ankle, Musculoskeletal RST LOS, Right Digital Radiography Musculoskeletal ARZ LOS, Muskuloskeletal FLA LOS Specimen (Source) Anatomical Collection Method Collection Time Re ceived Time Location / / Volume Laterality 08/25/2018 1:16 PM EMPLOYMENT SUPERVISOR Impressions 08/25/2018 1:18 PM EMPLOYMENT SUPERVISOR IMPRESSION: ??Hindfoot valgus and pes planus. 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 Achill es and plantar calcaneal spurs. Arterial calcifications. Narrative 08/25/2018 1:18 PM EMPLOYMENT SUPERVISOR EXAM: ??DX FOOT ANKLE RIGHT 3 VIEWS Procedure Note Moises Styles M.D. - 08/25/2018Forma tting of this note might be different from the original. EXAM: DX FOOT ANKLE RIGHT 3 VIEWS IMPRESSION: Hindfoot valgus and pes plan us. 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 Achill es and plantar calcaneal spurs. Arterial calcifications. Padmini Hudson P.A.-C. IMG DIAGNOSTIC IMAGING PROCE DURES documented in this encounter Visit Diagnoses Diagnosis Pain Right Ankle And Joints Right Foot documented in this encounter Additional Health Concerns Assessment Noted Time PHQ-9 Depression Total Score: 2 08/25/2018 9:45 AM EMPLOYMENT SUPERVISOR documented as of this encounter Care Teams Farmworker Dairy Relationship Specialty Start Date End Date Elsewhere, Pcp PCP - General Family Medicine 07/29/17 documented as of this encounter
--- OUTSIDE RECORDS SUMMARY | 2022-05-17 19:00 | XMS_ITS | Encounter Summary ---
:1955 Author Organization [facility] Address [address] [place] [address] Care Team Providers Name Role Phone Elsewhere, Pcp Primary Care Provider Unavailable Encounter Details Date Type Department Care Team Description 09/03/2018 Hospital Encounter Department of Angélica Granger Liver Laboratory Medicine Edmundo Stern (HCC) and Pathology, [address] [place] [address] in [place], [place] [address] [place] [address] [place], [place] (Work) [phone] Social History Tobacco Use Types Packs/Day Years [...] at Date Recorded Male 05/16/2020 4:27 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 [address] [place] [phone] 05/29/2022 Office Visit Otorhinolaryngology Dex Matta APRN, CDemetriusNFabrice., M.S.N. [address] [place] [phone] 05/29/2022 Office Visit Otorhinolaryngology Nadeem Maradiaga, Jennifer., M.S. [address] [place] [phone] 05/31/2022 Appointment Radiology Guilherme Matt MPAS, Edmundo, M.S. [address] [place] [phone] 06/05/2022 Appointment Laboratory Medicine Angélica Granegr P.A.-C. [address] [place] [phone] 06/19/2022 Appointment Laboratory Medicine Angélica Granger P.A.-C. [address] [place] [phone] 07/03/2022 Appointment Laboratory Medicine Angélica Granger P.A.-C. [address] [place] [phone] 07/17/2022 Appointment Laboratory Medicine Angélica Granger P.A.-C. [address] [place] [phone] 07/31/2022 Appointment Laboratory Medicine Angélica Granger P.A.-C. [address] [place] [phone] 08/14/2022 Appointment Laboratory Medicine Angélica Granger P.A.-C. [address] [place] [phone] 08/28/2022 Appointment Laboratory Medicine Angélica Granger P.A.-C. [address] [place] [phone] documented as of this encounter Procedures Procedure Name Priority Date/Time Associated Comments Diagnosis TACROLIMUS LEVEL, B Routine 11/02/2018 8:40 AM Transplant Live r Results for this CDT (HCC) procedure are i n the results section. documented in this encounter Results (ABNORMAL) Tacrolimus, B (11/02/2018 8:40 AM CDT) P athologist Signature Tacrolimus, B 2.6 (L) 5.0-15.0 11/03/2018 [facility] (Trough) 3:[address] ng/mL [...] Resulting Agency Comment Mailed In Specimen Angélica J Gunneson P.A.-C. LAB BLOOD NON ADD-ON Performing Organization Address City/State/ZIP Code Phon e Number [facility] [address] [place], [place] [address] [facility] documented in this encounter Visit Diagnoses Diagnosis Transplant Liver (HCC) documented in this encounter Additional Health Concerns Assessment Noted Time PHQ-9 Depression Total Score: 2 08/25/2018 9:45 AM CAN FILLER documented as of this encounter Care Teams Construction Helper Relationship Specialty Start Date End Date Elsewhere, Pcp PCP - General Family Medicine 07/29/17 documented as of this encounter
--- OUTSIDE RECORDS SUMMARY | 2022-05-17 19:00 | XMS_ITS | Encounter Summary ---
:1955 Author Organization [facility] Address [address] [place] [address] Care Team Providers Name Role Phone Elsewhere, Pcp Primary Care Provider Unavailable Reason for Visit Reason Comments Med Refill Encounter Details Date Type Department Care Team Description [facility] 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 [address] [place] [phone] 05/23/2022 Clinical Admitting/Central Communication Scheduling 05/27/2022 Comprehensive Visit Orthopedic Surgery Markus Sams M.D., Ph.D. [address] [place] [phone] 05/29/2022 Office Visit Otorhinolaryngology Dex Matta APRN, C.N.P., M.S.N. [address] [place] [phone] 05/29/2022 Office Visit Otorhinolaryngology Nadeem Maradiaga, P.A.-Arley., M.S. [address] [place] [phone] 05/31/2022 Appointment Radiology Guilherme Matt MPAS, P.Murtaza.Marie., M.S. [address] [place] [phone] 06/05/2022 Appointment Laboratory Medicine Angélica Granger P.A.-C. [address] [place] [address] [phone] 06/19/2022 Appointment Laboratory Medicine Angélica Granger P.A.-C. [address] [place] [phone] 07/03/2022 Appointment Laboratory Medicine Angélica Granger P.A.-C. [address] [place] [phone] 07/17/2022 Appointment Laboratory Medicine Angélica Granger P.A.-C. [address] [place] [phone] 07/31/2022 Appointment Laboratory Medicine Angélica Granger P.A.-C. [address] [place] [phone] 08/14/2022 Appointment Laboratory Medicine Angélica Granger P.A.-C. [address] [place] [phone] 08/28/2022 Appointment Laboratory Angélica Royal P.A.-C. [address] [place] [phone] documented as of this encounter Visit Diagnoses Diagnosis Transplant Liver (HCC) documented in this encounter Additional Health Concerns Assessment Noted Time PHQ-9 Depression Total Score: 2 08/25/2018 9:45 AM COMPUTER TECHNOLOGY TRAINER documented as of this encounter Care Teams Structural Steel Ironworker Relationship Specialty Start Date End Date Elsewhere, Pcp PCP - General Family Medicine 07/29/17 documented as of this encounter
--- OUTSIDE RECORDS SUMMARY | 2022-05-17 19:00 | XMS_ITS | Encounter Summary ---
:1955 Author Organization [facility] Address [address] [place] [address] Care Team Providers Name Role Phone Elsewhere, Pcp Primary Care Provider Unavailable Reason for Visit Reason Comments Med Refill Encounter Details Date Type Department Care Team Description 09/14/2018 Refill Curt Rene [facility] for [facility], Deidra Stern M.D. 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 [address] [place] [phone] 05/23/2022 Clinical Admitting/Central Communication Scheduling 05/27/2022 Comprehensive Visit Orthopedic Surgery Markus Sams M.D., Ph.D. [address] [place] [phone] 05/29/2022 Office Visit Otorhinolaryngology Dex Matta APRN, C.N.P., M.S.N. [address] [place] [phone] 05/29/2022 Office Visit Otorhinolaryngology Nadeem Maradiaga, P.Murtaza.-Arley., M.S. [address] [place] [phone] 05/31/2022 Appointment Radiology Guilherme Matt MPAS, P.Murtaza.-Arley., M.S. [address] [place] [phone] 06/05/2022 Appointment Laboratory Medicine Angélica Granger P.A.-C. [address] [place] [address] [phone] 06/19/2022 Appointment Laboratory Medicine Angélica Granger P.A.-C. [address] [place] [phone] 07/03/2022 Appointment Laboratory Medicine Angélica Granger P.A.-C. [address] [place] [phone] 07/17/2022 Appointment Laboratory Medicine Angélica Granger P.A.-C. [address] [place] [phone] 07/31/2022 Appointment Laboratory Medicine Angélica Granger P.A.-C. [address] [place] [phone] 08/14/2022 Appointment Laboratory Medicine Angélica Granger P.A.-C. [address] [place] [phone] 08/28/2022 Appointment Laboratory Angélica Royal P.A.-C. [address] [place] [phone] documented as of this encounter Visit Diagnoses Not on filedocumented in this encounter Additional Health Concerns Assessment Noted Time PHQ-9 Depression Total Score: 2 08/25/2018 9:45 AM SALES REPRESENTATIVE FACILITY SERVICES documented as of this encounter Care Teams Snack Stewardess Relationship Specialty Start Date End Date Elsewhere, Pcp PCP - General Family Medicine 07/29/17 documented as of this encounter
--- OUTSIDE RECORDS SUMMARY | 2022-05-17 19:00 | XMS_ITS | Encounter Summary ---
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 - 09/15/2018 9:20 AM CDT Called pharmacy. They will forward request to PCP. Telephone Encounter - Santana Viveros - 09/15/2018 8:43 AM CDT Patient called to relay that his pharmacy in [facility] is having issues running his Levothyroxine; it is listed in his chart as a historical med. The pharmacy's contact info is: P.) [phone] F.) [phone] documented in this encounter Plan of Treatment Upcoming Encounters Date Type Specialty Care Team Description 05/22/2022 Appointment Laboratory Medicine Angélica Granger P.A.-C. [address] [place] [phone] 05/23/2022 Clinical Admitting/Central Communication Scheduling 05/27/2022 Comprehensive Visit Orthopedic Surgery Markus Sams M.D., Ph.D. [address] [place] [phone] 05/29/2022 Office Visit Otorhinolaryngology Dex Matta APRN, C.N.P., M.S.N. [address] [place] [phone] 05/29/2022 Office Visit Otorhinolaryngology Nadeem Maradiaga P.A.-C., M.S. [address] [place] [phone] 05/31/2022 Appointment Radiology Guilherme Matt MPAS, P.A.-C., M.S. [address] [place] [phone] 06/05/2022 Appointment Laboratory Medicine Angélica Granger P.A.-C. [address] [place] [phone] 06/19/2022 Appointment Laboratory Medicine Angélica Granger P.A.-C. [address] [place] [phone] 07/03/2022 Appointment Laboratory Medicine Angélica Granger P.A.-C. [address] [place] [phone] 07/17/2022 Appointment Laboratory Medicine Angélica Granger P.A.-C. [address] [place] [phone] 07/31/2022 Appointment Laboratory Medicine Angélica Granger P.A.-C. [address] [place] [phone] 08/14/2022 Appointment Laboratory Medicine Angélica Granger P.A.-C. [address] [place] [phone] 08/28/2022 Appointment Laboratory Medicine Angélica Granger P.A.-C. 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
--- OUTSIDE RECORDS SUMMARY | 2022-05-17 19:00 | XMS_ITS | Encounter Summary ---
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 [address] [place] [phone] 05/23/2022 Clinical Admitting/Central Communication Scheduling 05/27/2022 Comprehensive Visit Orthopedic Surgery Markus Sams M.D., Ph.D. [address] [place] [phone] 05/29/2022 Office Visit Otorhinolaryngology Dex Matta, RAMONA, C.N.P., M.S.N. [address] [place] [phone] 05/29/2022 Office Visit Otorhinolaryngology Nadeem Maradiaga, P.A.-C., M.S. [address] [place] [address] [phone] 05/31/2022 Appointment Radiology Guilherme Matt MPAS, P.Murtaza.-Arley., M.S. [address] [place] [phone] 06/05/2022 Appointment Laboratory Medicine Angélica Granger P.A.-C. [address] [place] [phone] 06/19/2022 Appointment Laboratory Medicine Angélica Granger P.A.-C. [address] [place] [phone] 07/03/2022 Appointment Laboratory Medicine Angélica Granger P.A.-C. [address] [place] [phone] 07/17/2022 Appointment Laboratory Medicine Angélica Granger P.A.-C. [address] [place] [phone] 07/31/2022 Appointment Laboratory Medicine Angélica Granger P.A.-C. [address] [place] [phone] 08/14/2022 Appointment Laboratory Medicine Angélica Granger P.A.-C. [address] [place] [phone] 08/28/2022 Appointment Laboratory Angélica Royal P.A.-C. 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
--- OUTSIDE RECORDS SUMMARY | 2022-05-17 19:00 | XMS_ITS | Encounter Summary ---
:1955 Author Organization [facility] Address [address] [place] [address] Care Team Providers Name Role Phone Elsewhere, Pcp Primary Care Provider Unavailable Reason for Visit Reason Comments Med Refill Encounter Details Date Type Department Care Team Description 2018 Refill Curt Rene [facility] Deidra Stern M.D. 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 - 09/14/2018 9:52 AM CDT Please request Levothyroxine refill from local primary care physician documented in this encounter Plan of Treatment Upcoming Encounters Date Type Specialty Care Team Description 05/22/2022 Appointment Laboratory Medicine Angélica Granger P.A.-C. [address] [place] [address] [phone] 05/23/2022 Clinical Admitting/Central Communication Scheduling 05/27/2022 Comprehensive Visit Orthopedic Surgery Markus Sams M.D., Ph.D. [address] [place] [phone] 05/29/2022 Office Visit Otorhinolaryngology Dex Matta APRN, C.N.P., M.S.N. [address] [place] [phone] 05/29/2022 Office Visit Otorhinolaryngology Nadeem Maradiaga P.A.-C., M.S. [address] [place] [phone] 05/31/2022 Appointment Radiology Guilherme Matt MPAS, Jennifer., M.S. [address] [place] [phone] 06/05/2022 Appointment Laboratory Medicine Angélica Granger P.A.-C. [address] [place] [phone] 06/19/2022 Appointment Laboratory Medicine Angélica Granger P.A.-C. [address] [place] [phone] 07/03/2022 Appointment Laboratory Medicine Angélica Granger P.A.-C. [address] [place] [phone] 07/17/2022 Appointment Laboratory Medicine Angélica Granger P.A.-C. [address] [place] [phone] 07/31/2022 Appointment Laboratory Medicine Angélica Garnger P.A.-C. [address] [place] [phone] 08/14/2022 Appointment Laboratory Angélica Royal P.A.-C. [address] [place] [phone] 08/28/2022 Appointment Laboratory Medicine Angélica Granger P.A.-C. [address] [place] [phone] documented as of this encounter Visit Diagnoses Not on filedocumented in this encounter Additional Health Concerns Assessment Noted Time PHQ-9 Depression Total Score: 2 08/25/2018 9:45 AM SHOP HELPER documented as of this encounter Care Teams Database Security Administrator Relationship Specialty Start Date End Date Elsewhere, Pcp PCP - General Family Medicine 07/29/17 documented as of this encounter
--- OUTSIDE RECORDS SUMMARY | 2022-05-17 19:00 | XMS_ITS | Encounter Summary ---
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 Forwarded to nurses. documented in this encounter Plan of Treatment Upcoming Encounters Date Type Specialty Care Team Description 05/22/2022 Appointment Laboratory Medicine Angélica Granger P.A.-C. [address] [place] [phone] 05/23/2022 Clinical Admitting/Central Communication Scheduling 05/27/2022 Comprehensive Visit Orthopedic Surgery Markus Sams M.D., Ph.D. [address] [place] [phone] 05/29/2022 Office Visit Otorhinolaryngology Dex Matta APRN, C.N.P., M.S.N. [address] [place] [address] [phone] 05/29/2022 Office Visit Otorhinolaryngology Nadeem Maradiaga, P.Murtaza.-C., M.S. [address] [place] [phone] 05/31/2022 Appointment Radiology Guilherme Matt, RASTAEdmundo, M.S. [address] [place] [phone] 06/05/2022 Appointment Laboratory Medicine Angélica Granger P.A.-C. [address] [place] [phone] 06/19/2022 Appointment Laboratory Medicine Angélica Granger P.A.-C. [address] [place] [phone] 07/03/2022 Appointment Laboratory Medicine Angélica Granger P.A.-C. [address] [place] [phone] 07/17/2022 Appointment Laboratory Angélica Royal P.A.-C. [address] [place] [phone] 07/31/2022 Appointment Laboratory Medicine Angélica Granger P.A.-C. [address] [place] [phone] 08/14/2022 Appointment Laboratory Angélica Royal P.A.-C. [address] [place] [address] [phone] 08/28/2022 Appointment Laboratory Angélica Royal P.A.-C. [address] [place] [phone] documented as of this encounter Visit Diagnoses Not on filedocumented in this encounter Additional Health Concerns Assessment Noted Time PHQ-9 Depression Total Score: 2 08/25/2018 9:45 AM PHOTOGRAPH PRINTER documented as of this encounter Care Teams Video Specialist Relationship Specialty Start Date End Date Elsewhere, Pcp PCP - General Family Medicine 07/29/17 documented as of this encounter
--- OUTSIDE RECORDS SUMMARY | 2022-05-17 19:00 | XMS_ITS | Encounter Summary ---
:1955 Author Organization [facility] Address [address] [place] [address] Care Team Providers Name Role Phone Elsewhere, Pcp Primary Care Provider Unavailable Encounter Details Date Type Department Care Team Description 09/04/2018 Hospital Encounter Department of Pompeian, Pretrans plant Recipient Evaluation Exam; Laboratory Medicine Angeline Stern, Chronic Kidney Disease and Pathology, Deshawn GREENE, [facility] in 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 [address] [place] [phone] 05/23/2022 Clinical Admitting/Central Communication Scheduling 05/27/2022 Comprehensive Visit Orthopedic Surgery Markus Sams M.D., Ph.D. [address] [place] [phone] 05/29/2022 Office Visit Otorhinolaryngology Dex Matta APRN, C.N.P., M.S.N. [address] [place] [phone] 05/29/2022 Office Visit Otorhinolaryngology Nadeem Maradiaga, Jennifer., M.S. [address] [place] [phone] 05/31/2022 Appointment Radiology Guilherme Matt MPAS, Edmundo, M.S. [address] [place] [phone] 06/05/2022 Appointment Laboratory Medicine Angélica Granger P.A.-C. [address] [place] [phone] 06/19/2022 Appointment Laboratory Medicine Angélica Granger P.A.-C. [address] [place] [phone] 07/03/2022 Appointment Laboratory Medicine Angélica Granger P.A.-C. [address] [place] [phone] 07/17/2022 Appointment Laboratory Medicine Angélica Granger P.A.-C. [address] [place] [phone] 07/31/2022 Appointment Laboratory Medicine Angélica Granger P.A.-C. [address] [place] [phone] 08/14/2022 Appointment Laboratory Medicine Angélica Granger P.A.-C. [address] [place] [phone] 08/28/2022 Appointment Laboratory Medicine Angélica Granger P.A.-C. [address] [place] [phone] documented as of this encounter Procedures Procedure [...] SAB Antibody Screen (09/15/2018 8:15 AM CDT) [facility] Method Time Signature Class II SAB Negative Not Applicable 09/18/2018 [facility] Overall 12:26 PM LABORATORIES - Result CDT [facility] Class II SAB 0 09/18/2018 [facility] cPRA 12:26 PM LABORATORIES - CDT [facility] Comment: ----ADDITIONAL INFORMATION---- This PRA is a [facility] Tiss ue Typing Laboratory calculated PRA. PRA is based on the antigen frequency of the Tissue Typing patient a nd donor population. ??PRA reflects all antibodie s with a normalized value (MFI) above 300. SAB DRB1 Specificity NONE 09/18/2018 12:26 PM CDT [facility] SAB [id number] Specificity NONE 09/18/2018 12 :26 PM CDT [facility] SAB DQB1 Specificity NONE 09/18/2018 12:26 PM CDT [facility] SAB DPB1 Specificity NONE 09/18/2018 12:26 PM CDT [facility] Comment: ----ADDITIONAL INFORMATION---- Method: [facility] Performing Laboratory CLIA# [id number] Specimen Anatomical Collection Method Collection Time Receive d Time (Source) Location / / Volume Laterality Blood (Blood, 09/15/2018 8:15 AM 09/17/19 19 9:53 Venous) CDT AM CDT Resulting Agency Comment Mailed In Specimen Angeline Hull APRN, C.N.P., M.S.N. LAB HLA ORDER OSMEL Performing Organization Address City/State/ZIP Code Phon e Number [facility] LABORATORIES - [address] [place], [place] [address] [facility] HLA Class I SAB Antibody Screen (09/15/2018 8:15 AM CDT) [facility] Method Time Signature Class I SAB Positive Not Applicable 09/18/2018 [facility] Overall 11:05 AM LABORATORIES - Result CDT [facility] Class I SAB 7 09/18/2018 [facility] cPRA 11:05 AM LABORATORIES - CDT [facility] Comment: ----ADDITIONAL INFORMATION---- This PRA is a [facility] ue Typing Laboratory calculated PRA. PRA is based on the antigen frequency of the Tissue Typing patient a nd donor population. ??PRA reflects all antibodie s with a normalized value (MFI) above 300. SAB A Specificity see below 09/18/2018 11:05 A M CDT [facility] Comment: 29[302] Format: Serologic equivalent/abbreviated specificity [Normalized Value] shown in decreasing o rder. Note: A serologic equivalent/abbreviated specifi city displayed multiple times could indicate different alleles. SAB B Specificity see below 09/18/2018 11:05 A M CDT [facility] Comment: 54[511] Format: Serologic equivalent/abbreviated specificity [Normalized Value] shown in decreasing o rder. Note: A serologic equivalent/abbreviated specifi city displayed multiple times could indicate different alleles. SAB C Specificity NONE 09/18/2018 11:05 AM CD T [facility] Comment: ----ADDITIONAL INFORMATION---- Method: Luminex Performing Laboratory CLIA# [id number] Specimen Anatomical Collection Method Collection Time Receive d Time (Source) Location / / Volume Laterality Blood (Blood, 09/15/2018 8:15 AM 09/17/19 19 9:53 Venous) CDT AM CDT Resulting Agency Comment Mailed In Specimen Angeline Hull APRN, C.N.P., M.S.N. LAB HLA ORDER OSMEL Performing Organization Address City/[facility] [address]/[facility] Code Phon e Number [facility] - [address] [place] [address] [facility] HIV-1/-2 Ag and Ab Screen, Plasma (09/15/2018 8:15 AM CDT) P athologist Signature HIV-1/-2 Ag Negative Negative 09/16/2018 [facility] and Ab Screen, 1:43 PM CDT [facility] Comment: Negative result does not [...] OGY - BLOOD ORDERABLES Performing Organization Address City/State/ZIP Code Phon e Number [facility] [address] [place] [address] [facility] documented in this encounter Visit Diagnoses Diagnosis Pretransplant Recipient Evaluation Exam Chronic Kidney Disease documented in this encounter Additional Health Concerns Assessment Noted Time PHQ-9 Depression Total Score: 2 08/25/2018 9: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
--- OUTSIDE RECORDS SUMMARY | 2022-05-17 19:00 | XMS_ITS | Encounter Summary ---
:1955 Author Organization [facility] Address [address] [place] [address] Care Team Providers Name Role Phone Elsewhere, Pcp Primary Care Provider Unavailable Reason for Visit Outpatient (Routine) - Closed Specialty Diagnoses / Procedures Referred By Contact Refer red To Contact Transplant Diagnoses Transplant Liver (HCC) Medication Therapy Bone Drier Operator Not Anticoagulant Other Specified Diseases Of Liver Immunosuppressed State Angélica Granger P.A.-[place] [address] [place] [phone] Referral ID Status Reason Start Date Expiration Date Visits Requ ested Visits Authorized [id number] Closed 06/25/2018 06/25/2019 1 1 Encounter Details Date Type Department Care Team Description 08/25/2018 Office Visit Angélica Chign After care Transplant Liver (HCC) (Primary Dx); [facility] for J, P.A.-C. 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 E4. 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 [address] [place] [phone] 05/23/2022 Clinical Admitting/Central Communication Scheduling 05/27/2022 Comprehensive Visit Orthopedic Surgery Markus Sams M.D., Ph.D. [address] [place] [address] [phone] 05/29/2022 Office Visit Otorhinolaryngology Dex Matta APRN CDemetriusNFabrice., M.S.N. [address] [place] [phone] 05/29/2022 Office Visit Otorhinolaryngology Nadeem Maradiaga, Jennifer., M.S. [address] [place] [phone] 05/31/2022 Appointment Radiology Guilherme Matt MPAS, Edmundo, M.S. [address] [place] [phone] 06/05/2022 Appointment Laboratory Medicine Angélica Granger P.A.-C. [address] [place] [phone] 06/19/2022 Appointment Laboratory Medicine Angélica Granger P.A.-C. [address] [place] [phone] 07/03/2022 Appointment Laboratory Medicine Angélica Granger P.A.-C. [address] [place] [phone] 07/17/2022 Appointment Laboratory Medicine Angélica Granger P.A.-C. [address] [place] [phone] 07/31/2022 Appointment Laboratory Medicine Angélica Granger P.A.-C. [address] [place] [phone] 08/14/2022 Appointment Laboratory Medicine Angélica Granger P.A.-C. [address] [place] [phone] 08/28/2022 Appointment Laboratory Medicine Angélica Granger P.A.-C. [address] [place] [phone] documented as of this encounter Visit Diagnoses Diagnosis Aftercare Transplant Liver (HCC) - Prima ry Transplant Liver (HCC) Medication Therapy Bone Drier Operator Not Anticoa gulant Other Specified Diseases Of Liver Immunosuppressed State documented in this encounter Additional Health Concerns Assessment Noted Time PHQ-9 Depression Total Score: 2 08/25/2018 9:45 AM EROSION CONTROL SPECIALIST documented as of this encounter Care Teams Procedure Writer Relationship Specialty Start Date End Date Elsewhere, Pcp PCP - General Family Medicine 07/29/17 documented as of this encounter
--- OUTSIDE RECORDS SUMMARY | 2022-05-17 19:01 | XMS_ITS | Encounter Summary ---
:1955 Author Organization [facility] Address [address] [place] [address] Care Team Providers Name Role Phone Elsewhere, Pcp Primary Care Provider Unavailable Encounter Details Date Type Department Care Team Description 06/04/2018 Clinical Communication Theresa Sewell [facility] for M, P.A.-C., M.S. 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 [address] [place] [address] [phone] 05/23/2022 Clinical Admitting/Central Communication Scheduling 05/27/2022 Comprehensive Visit Orthopedic Surgery Markus Sams M.D., Ph.D. [address] [place] [phone] 05/29/2022 Office Visit Otorhinolaryngology Dex Matta APRN, C.N.P., M.S.N. [address] [place] [address] [phone] 05/29/2022 Office Visit Otorhinolaryngology Nadeem Maradiaga, PEdgar.-Arley., M.S. [address] [place] [phone] 05/31/2022 Appointment Radiology Guilherme Matt MPAS, Jennifer., M.S. [address] [place] [phone] 06/05/2022 Appointment Laboratory Medicine Angélica Granger P.A.-C. [address] [place] [phone] 06/19/2022 Appointment Laboratory Medicine Angélica Granger P.A.-C. [address] [place] [phone] 07/03/2022 Appointment Laboratory Medicine Angélica Granger P.A.-C. [address] [place] [address] [phone] 07/17/2022 Appointment Laboratory Medicine Angélica Granger P.A.-C. [address] [place] [phone] 07/31/2022 Appointment Laboratory Medicine Angélica Granger P.A.-C. [address] [place] [phone] 08/14/2022 Appointment Laboratory Medicine Angélica Granger P.A.-C. [address] [place] [address] [phone] 08/28/2022 Appointment Laboratory Medicine Angélica Granger P.A.-C. [address] [place] [phone] documented as of this encounter Results HLA Class II SAB Antibody Screen (06/29/2018 8:54 AM ROUSTABOUT SUPERVISOR) [facility] Method Time Signature Class II SAB Positive Not Applicable 07/02/2018 [facility] Overall 9:13 AM ROUSTABOUT SUPERVISOR LABORATORIES - [facility] Class II SAB 81 07/02/2018 [facility] cPRA 9:13 AM ROUSTABOUT SUPERVISOR LABORATORIES - [facility] Comment: ----ADDITIONAL INFORMATION---- This PRA is a [facility] Tiss ue Typing Laboratory calculated PRA. PRA is based on the antigen frequency of the Tissue Typing patient a nd donor population. ??PRA reflects all antibodie s with a normalized value (MFI) above 300. SAB DRB1 Specificity NONE 07/02/2018 9:13 AM [facility] SAB [id number] Specificity see below 07/02/2018 9: 13 AM [facility] Comment: 53[310] Format: Serologic equivalent/abbreviated specificity [Normalized Value] shown in decreasing o rder. Note: A serologic equivalent/abbreviated specifi city displayed multiple times could indicate different alleles. SAB DQB1 Specificity see below 07/02/2018 9:13 AM [facility] Comment: 6[691], 6[460], 5[377], 6[339] Format: Serologic equivalent/abbreviated specificity [Normalized Value] shown in decreasing o rder. Note: A serologic equivalent/abbreviated specifi city displayed multiple times could indicate different alleles. SAB DPB1 Specificity NONE 07/02/2018 9:13 AM [facility] Comment: ----ADDITIONAL INFORMATION---- Method: [facility] Performing Laboratory CLIA# [id number] Specimen Anatomical Collection Method Collection Time Receive d Time (Source) Location / / Volume Laterality Blood (Blood, 06/29/2018 8:54 AM 06/30/19 9:36 Venous) ROUSTABOUT SUPERVISOR AM ROUSTABOUT SUPERVISOR Resulting Agency Comment Mailed In Specimen Patricia Bender P.A.-C., M.S. LAB HLA ORDERABLES Performing Organization Address City/State/ZIP Code Phon e Number [facility] - 200 [place], [place] [address] [facility] HLA Class I SAB Antibody Screen (06/29/2018 8:54 AM [facility]) [facility] Method Time Signature Class I SAB Positive Not Applicable 07/02/2018 [facility] Overall 7:43 AM [facility] LABORATORIES - Result [facility] Class I SAB 7 07/02/2018 [facility] cPRA 7:43 AM [facility] - [facility] Comment: ----ADDITIONAL INFORMATION---- This PRA is a [facility] ue Typing Laboratory calculated PRA. PRA is based on the antigen frequency of the Tissue Typing patient a nd donor population. ??PRA reflects all antibodie s with a normalized value (MFI) above 300. SAB A Specificity see below 07/02/2018 7:43 AM ROUSTABOUT SUPERVISOR [facility] Comment: 29[386] Format: Serologic equivalent/abbreviated specificity [Normalized Value] shown in decreasing o rder. Note: A serologic equivalent/abbreviated specifi city displayed multiple times could indicate different alleles. SAB B Specificity see below 07/02/2018 7:43 AM ROUSTABOUT SUPERVISOR [facility] Comment: 54[595] Format: Serologic equivalent/abbreviated specificity [Normalized Value] shown in decreasing o rder. Note: A serologic equivalent/abbreviated specifi city displayed multiple times could indicate different alleles. SAB C Specificity NONE 07/02/2018 7:43 AM [facility] Comment: ----ADDITIONAL INFORMATION---- Method: [facility] Performing Laboratory CLIA# [id number] Specimen Anatomical Collection Method Collection Time Receive d Time (Source) Location / / Volume Laterality Blood (Blood, 06/29/2018 8:54 AM 06/30/19 19 9:36 Venous) ROUSTABOUT SUPERVISOR AM ROUSTABOUT SUPERVISOR Resulting Agency Comment Mailed In Specimen Patricia Bender P.A.-C., M.S. LAB HLA ORDERABLES Performing Organization Address City/State/ZIP Code Phon e Number [facility] - [address] [place] [phone] [facility] documented in this encounter Visit Diagnoses Diagnosis Pretransplant Recipient Evaluation Exam - Primary Chronic Kidney Disease documented in this encounter Care Teams Recreation Attendant Relationship Specialty Start Date End Date Elsewhere, Pcp PCP - General Family Medicine 07/29/17 documented as of this encounter
--- OUTSIDE RECORDS SUMMARY | 2022-05-17 19:01 | XMS_ITS | Encounter Summary ---
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 [address] [place] [phone] 05/23/2022 Clinical Admitting/Central Communication Scheduling 05/27/2022 Comprehensive Visit Orthopedic Surgery Markus Sams M.D., Ph.D. [address] [place] [phone] 05/29/2022 Office Visit Otorhinolaryngology Dex Matta APRN, C.N.P., M.S.N. [address] [place] [address] [phone] 05/29/2022 Office Visit Otorhinolaryngology Nadeem Maradiaga, P.Murtaza.-Arley., M.S. [address] [place] [phone] 05/31/2022 Appointment Radiology Guilherme Matt MPAS, Jennifer., M.S. [address] [place] [phone] 06/05/2022 Appointment Laboratory Medicine Angélica Granger P.A.-C. [address] [place] [phone] 06/19/2022 Appointment Laboratory Medicine GunAngélica wilcox P.A.-C. [address] [place] [phone] 07/03/2022 Appointment Laboratory Medicine Angélica Granger P.A.-C. [address] [place] [phone] 07/17/2022 Appointment Laboratory Medicine Angélica Granger P.A.-C. [address] [place] [phone] 07/31/2022 Appointment Laboratory Medicine Angélica Granger P.A.-C. [address] [place] [phone] 08/14/2022 Appointment Laboratory Medicine Angélica Granger P.A.-C. [address] [place] [phone] 08/28/2022 Appointment Laboratory Medicine Angélica Granger P.A.-C. [address] [place] [phone] documented as of this encounter Visit Diagnoses Not on filedocumented in this encounter Additional Health Concerns Infection Onset Date Last Indicated Resolved Time COVID19 Pending 12/13/2019 12/13/2019 12/14/2019 11:03 AM CDT COVID19 Pending 01/26/2020 01/27/2020 01/28/2020 12:12 AM CDT documented as of this encounter Care Teams [employer] Relationship Specialty Start Date End Date Elsewhere, Pcp PCP - General Family Medicine 07/29/17 [facility] - Laboratory Medicine 04/12/[address] [address] documented as of this encounter
--- OUTSIDE RECORDS SUMMARY | 2022-05-17 19:01 | XMS_ITS | Encounter Summary ---
:1955 Author Organization [facility] Address [address] [place] [address] Care Team Providers Name Role Phone Elsewhere, Pcp Primary Care Provider Unavailable Encounter Details Date Type Department Care Team Description 08/24/2018 Hospital Encounter Department of Angélica Granger Transpl ant Liver (HCC); Radiology, Kd Stern P.A.-C. Medication Therapy Senior Living Not Anticoa gulant; Building, in [address] [place] [address] Other Specified Diseases Of Liver; [facility] [phone] [place] [address] [place], [place] (Work) [phone] Social History Tobacco Use [...] ENGINE MECHANIC documented as of this encounter Medications [...] Laboratory Medicine Angélica Granger P.A.-C. [address] [place] [phone] 05/23/2022 Clinical Admitting/Central Communication Scheduling 05/27/2022 Comprehensive Visit Orthopedic Surgery Markus Sams M.D., Ph.D. [address] [place] [phone] 05/29/2022 Office Visit Otorhinolaryngology Dex Matta APRN, C.N.P., M.S.N. [address] [place] [phone] 05/29/2022 Office Visit Otorhinolaryngology Nadeem Maradiaga, Jennifer., M.S. [address] [place] [phone] 05/31/2022 Appointment Radiology Guilherme Matt MPAS, Edmundo, M.S. [address] [place] [phone] 06/05/2022 Appointment Laboratory Medicine Angélica Granger P.A.-C. [address] [place] [phone] 06/19/2022 Appointment Laboratory Medicine Angélica Granger P.A.-C. [address] [place] [phone] 07/03/2022 Appointment Laboratory Medicine Angélica Granger P.A.-C. [address] [place] [phone] 07/17/2022 Appointment Laboratory Medicine Angélica Granger P.A.-C. [address] [place] [phone] 07/31/2022 Appointment Laboratory Medicine Angélica Granger P.A.-C. [address] [place] [phone] 08/14/2022 Appointment Laboratory Medicine Angélica Granger P.A.-C. [address] [place] [phone] 08/28/2022 Appointment Laboratory Medicine Angélica Granger P.A.-C. 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 Not Anticoagulan t Other Specified Diseases Of Live r Immunosuppressed State documented in this encounter Results US Liver Transplant (08/24/2018 10:17 AM FARM IMPLEMENT ENGINE MECHANIC) Anatomical Region Laterality Modality Abdomen, Ultrasound RST LOS, Ultrasound ARZ LOS, Ultrasound FLA N/A Ultrasound LOS Specimen (Source) Anatomical Collection Method Collection Time Re ceived Time Location / / Volume Laterality 08/24/2018 10:34 AM FARM IMPLEMENT ENGINE MECHANIC Impressions 08/24/2018 11:14 AM FARM IMPLEMENT ENGINE MECHANIC IMPRESSION: 1. Normal-appearing hepatic allograft wi th patent vasculature. 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 2. Stable pancreatic cysts, perhaps side branch IPMN. 3. Parenchymal thinning and increased ec hogenicity of both kidneys compatible with changes of chronic renal disease. Narrative 08/24/2018 11:14 AM FARM IMPLEMENT ENGINE MECHANIC EXAM: US LIVER TRANSPLANT Exam performed with [...] of chronic renal disease. Angélica Granger P.A.-C. IMAutumn US PROCEDURES documented in this encounter Visit Diagnoses Diagnosis Transplant Liver (HCC) Medication Therapy Senior Living Not Anticoa gulant Other Specified Diseases Of Liver Immunosuppressed State documented in this encounter Care Teams Armature Winder Relationship Specialty Start Date End Date Elsewhere, Pcp PCP - General Family Medicine 07/29/17 documented as of this encounter
--- OUTSIDE RECORDS SUMMARY | 2022-05-17 19:01 | XMS_ITS | Encounter Summary ---
:1955 Author Organization [facility] Address [address] [place] [address] Care Team Providers Name Role Phone Elsewhere, Pcp Primary Care Provider Unavailable Reason for Visit Reason Comments Med Refill Encounter Details Date Type Department Care Team Description 07/15/2018 Refill Curt aguirre [facility], Salvador Camejo, Med Refill Transplantation and Clinical M.D . 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 [address] [place] [phone] 05/23/2022 Clinical Admitting/Central Communication Scheduling 05/27/2022 Comprehensive Visit Orthopedic Surgery Markus Sams M.D., Ph.D. [address] [place] [phone] 05/29/2022 Office Visit Otorhinolaryngology Dex Matta, RAMONA, C.N.P., M.S.N. [address] [place] [address] [phone] 05/29/2022 Office Visit Otorhinolaryngology Nadeem Maradiaga, P.A.-C., M.S. [address] [place] [address] [phone] 05/31/2022 Appointment Radiology Guilherme Matt MPAS, P.Murtaza.Marie., M.S. [address] [place] [address] [phone] 06/05/2022 Appointment Laboratory Medicine Angélica Granger P.A.-C. [address] [place] [phone] 06/19/2022 Appointment Laboratory Medicine Angélica Granger P.A.-C. [address] [place] [phone] 07/03/2022 Appointment Laboratory Medicine Angélica Granger P.A.-C. [address] [place] [phone] 07/17/2022 Appointment Laboratory Medicine Angélica Granger P.A.-C. [address] [place] [phone] 07/31/2022 Appointment Laboratory Medicine Angélica Granger P.A.-C. [address] [place] [phone] 08/14/2022 Appointment Laboratory Medicine Angélica Granger P.A.-C. [address] [place] [phone] 08/28/2022 Appointment Laboratory Medicine Angélica Granger P.A.-C. [address] [place] [phone] documented as of this encounter Visit Diagnoses Not on filedocumented in this encounter Care Teams Nursing Services Manager Relationship Specialty Start Date End Date Elsewhere, Pcp PCP - General Family Medicine 07/29/17 documented as of this encounter
--- OUTSIDE RECORDS SUMMARY | 2022-05-17 19:01 | XMS_ITS | Encounter Summary ---
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 [address] [place] [phone] 05/23/2022 Clinical Admitting/Central Communication Scheduling 05/27/2022 Comprehensive Visit Orthopedic Surgery Markus Sams M.D., Ph.D. [address] [place] [address] [phone] 05/29/2022 Office Visit Otorhinolaryngology Dex Matta, RAMONA, C.N.P., M.S.N. [address] [place] [address] [phone] 05/29/2022 Office Visit Otorhinolaryngology Nadeem Maradiaga, P.A.-C., M.S. [address] [place] [address] [phone] 05/31/2022 Appointment Radiology Guilherme Matt MPAS, P.Murtaza.-Arley., M.S. [address] [place] [phone] 06/05/2022 Appointment Laboratory Medicine Angélica Granger P.A.-C. [address] [place] [phone] 06/19/2022 Appointment Laboratory Medicine Angélica Granger P.A.-C. [address] [place] [address] [phone] 07/03/2022 Appointment Laboratory Medicine Angélica Granger P.A.-C. [address] [place] [phone] 07/17/2022 Appointment Laboratory Medicine Angélica Granger P.A.-C. [address] [place] [phone] 07/31/2022 Appointment Laboratory Medicine Angélica Granger P.A.-C. [address] [place] [phone] 08/14/2022 Appointment Laboratory Medicine Angélica Granger P.A.-C. [address] [place] [phone] 08/28/2022 Appointment Laboratory Medicine Angélica Granger P.A.-C. [address] [place] [phone] documented as of this encounter Results DX Foot Ankle Right 3 Views (08/25/2018 12:57 PM SPECIAL SKILLS OFFICER) Anatomical Region Laterality Modality Lower Extremity, Foot, Ankle, Musculoskeletal RST LOS, Right Digital Radiography Musculoskeletal ARZ LOS, Muskuloskeletal FLA LOS Specimen (Source) Anatomical Collection Method Collection Time Re ceived Time Location / / Volume Laterality 08/25/2018 1:16 PM SPECIAL SKILLS OFFICER Impressions 08/25/2018 1:18 PM SPECIAL SKILLS OFFICER IMPRESSION: ??Hindfoot valgus and pes planus. 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 Achill es and plantar calcaneal spurs. Arterial calcifications. Narrative 08/25/2018 1:18 PM SPECIAL SKILLS OFFICER EXAM: ??DX FOOT ANKLE RIGHT 3 VIEWS Procedure Note Moises Styles M.D. - 08/25/2018Forma tting of this note might be different from the original. EXAM: DX FOOT ANKLE RIGHT 3 VIEWS IMPRESSION: Hindfoot valgus and pes plan us. 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 Achill es and plantar calcaneal spurs. Arterial calcifications. Padmini [facility] DAREN RAMIRES documented in this encounter Visit Diagnoses Diagnosis Pain Right Ankle And Joints Right Foot - Primary Pain Right Ankle And Joints Right Foot documented in this encounter Care Teams Chief School Finance Officer Relationship Specialty Start Date End Date Elsewhere, Pcp PCP - General Family Medicine 07/29/17 documented as of this encounter
--- OUTSIDE RECORDS SUMMARY | 2022-05-17 19:01 | XMS_ITS | Encounter Summary ---
:1955 Author Organization [facility] Address [address] [place] [address] Care Team Providers Name Role Phone Elsewhere, Pcp Primary Care Provider Unavailable Reason for Referral Outpatient (Routine) - Closed Specialty Diagnoses / Procedures Referred By Contact Refer red To Contact Transplant Diagnoses Transplant Liver (HCC) Medication Therapy Base Engineer Not Anticoagulant Other Specified Diseases Of Liver Immunosuppressed [place] Angélica Granger P.A.-C. [address] [phone] Referral ID Status Reason Start Date Expiration Date Visits Requ ested Visits Authorized [id number] Closed 06/25/2018 06/25/2019 1 1 L SANDER Outpatient (Routine) - Closed Specialty Diagnoses / Procedures Referred By Contact Refer red To Contact Transplant Diagnoses Transplant Liver (HCC) Medication Therapy Correction Not Anticoagulant Other Specified Diseases Of Liver Immunosuppressed [place] Angélica Granger P.A.-C. [address] [phone] Referral ID Status Reason Start Date Expiration Date Visits Requ ested Visits Authorized [id number] Closed 06/25/2018 06/25/2019 1 1 L SANDER Encounter Details Date Type Department Care Team Description 06/25/2018 Orders Only Curt Cote, Transp lant Liver (HCC) (Primary Dx); Center rufina Millard R.N. 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 [address] [place] [address] 05/23/2022 Clinical Admitting/Central Communication Scheduling 05/27/2022 Comprehensive Visit Orthopedic Surgery Markus Sams M.D., Ph.D. [address] [place] [phone] 05/29/2022 Office Visit Otorhinolaryngology Dex Matta APRN CDemetriusNJuan Miguel, M.S.N. [address] [place] [phone] 05/29/2022 Office Visit Otorhinolaryngology Nadeem Maradiaga, Jennifer., M.S. [address] [place] [phone] 05/31/2022 Appointment Radiology Guilherme Matt MPAS, Edmundo, M.S. [address] [place] [phone] 06/05/2022 Appointment Laboratory Medicine Angélica Granger P.A.-C. [address] [place] [phone] 06/19/2022 Appointment Laboratory Medicine Angélica Granger P.A.-C. [address] [place] [phone] 07/03/2022 Appointment Laboratory Medicine Angélica Granger P.A.-C. [address] [place] [phone] 07/17/2022 Appointment Laboratory Medicine Angélica Granger P.A.-C. [address] [place] [phone] 07/31/2022 Appointment Laboratory Medicine Angélica Granger P.A.-C. [address] [place] [address] 08/14/2022 Appointment Laboratory Medicine Angélica Granger P.A.-C. [address] [place] [phone] 08/28/2022 Appointment Laboratory Medicine Angélica Granger P.A.-C. [address] [place] [address] Scheduled Referrals Name Type Priority Associated Order Schedule Diagnoses Transplant Liver Outpatient Referral Routine Transplant Liver Expected: office visit ([facility]) 08/24/2018 (clinic) - Provider Medication Therapy (A pproximate), Base Engineer Not Expires: Anticoagulant 06/25/2019 Other Specified Diseases Of Live r Immunosuppressed State Transplant Liver Outpatient Referral Routine Transplant Liver Expected: office visit ([facility]) 08/24/2018 (clinic) - Nurse Medication Therapy (Appr oximate), Visit Base Engineer Not Expires: Anticoagulant 06/25/2019 Other Specified Diseases Of Live r Immunosuppressed State documented as of this encounter Results US Liver Transplant (08/24/2018 10:17 AM SPOOL SANDER) Anatomical Region Laterality Modality Abdomen, Ultrasound RST LOS, Ultrasound ARZ LOS, Ultrasound FLA N/A Ultrasound LOS Specimen (Source) Anatomical Collection Method Collection Time Re ceived Time Location / / Volume Laterality 08/24/2018 10:34 AM SPOOL SANDER Impressions 08/24/2018 11:14 AM SPOOL SANDER IMPRESSION: 1. Normal-appearing hepatic allograft wi th patent vasculature. 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 2. Stable pancreatic cysts, perhaps side branch IPMN. 3. Parenchymal thinning and increased ec hogenicity of both kidneys compatible with changes of chronic renal disease. Narrative 08/24/2018 11:14 AM SPOOL SANDER EXAM: US LIVER TRANSPLANT Exam performed with [...] PROCEDURES (ABNORMAL) Tacrolimus, B (08/24/2018 7:38 AM SPOOL SANDER) athologist Signature Tacrolimus, B 2.5 (L) 5.0-15.0 08/24/2018 [facility] (Trough) 1:59 PM SPO[address] SANDER [address] ng/mL [facility] Comment: ----ADDITIONAL [...] and its performa nce characteristics determined by [facility] in a manner consistent with CLIA requirements. This test has not been cleared or approved by the U.S. Mer d and Drug Administration. Specimen Anatomical Collection Method Collection Time Receive d Time (Source) Location / / Volume Laterality Blood (Blood, 08/24/2018 7:38 AM 08/25/19 19 Venous) SPOOL SANDER 10:43 AM SPOOL SANDER Angélica Granger P.A.-C. LAB BLOOD NON ADD-ON Performing Organization Address City/State/ZIP Code Phon e Number [facility] [address] [place], [place] [address] [facility] PSA (Prostate-Specific Antigen) Screen (08/24/2018 7:38 AM SPOOL SANDER) athologist Signature Prostate-Speci 0.54 <=4.5 08/24/2018 [facility] fic Ag ng/mL 8:53 AM [facility] Comment: ----ADDITIONAL INFORMATION---- The testing method is [...] 08/24/2018 7:38 AM 08/25/19 19 7:43 Venous) SPOOL SANDER AM SPOOL SANDER Angélica Granger P.A.-C. LAB BLOOD ADD-ON Performing Organization Address City/State/ZIP Code Phon e Number [facility] - [address] [place], [place] [address] [facility] Mononucleosis RNA/DNA (08/24/2018 7:38 AM SPOOL SANDER) Analysis Performed At Patho logist Time Signature [place] RNA/DNA Collected DEFAULT 08/24/2018 [facility] EDTA x 2 7:43 AM [facility] [place] RNA/DNA Collected DEFAULT 08/24/2018 [facility] NaHep 7:43 AM [facility] Specimen Anatomical Collection Method Collection Time Receive d Time (Source) Location / / Volume Laterality Blood (Blood, 08/24/2018 7:38 AM 08/25/19 19 7:43 Venous) SPOOL SANDER AM SPOOL SANDER Narrative [facility] - 08/24/2018 7:43 AM SPOOL SANDER Specimen Information: Specimen ID: [id number] Specimen Type: Blood Specimen Collection Start Date: 9 ??7:38 AM Specimen Received Date: 08/24/2018 ??7:43 AM Specimen ID: [id number] Specimen Type: Blood Specimen Collection Start Date: 9 ??7:38 AM Specimen Received Date: 08/24/2018 ??7:43 AM Specimen ID: [id number] Specimen Type: Blood Specimen Collection Start Date: 9 ??7:38 AM Specimen Received Date: 08/24/2018 ??7:43 AM Angélica Granger P.A.-C. LAB BLOOD NON ADD-ON Performing Organization Address City/[facility]/ZIP Code Phon e Number [facility] - [address] [place] [address] [facility] Organ Liver [place] (08/24/2018 7:38 AM SPOOL SANDER) Analysis Performed At Path logist Time Signature Organ Liver Collected DEFAULT 08/24/2018 [facility] [place] 7:45 AM SPOOL SANDER [facility] - [facility] Specimen Anatomical Collection Method Collection Time Receive d Time (Source) Location / / Volume Laterality Blood (Blood, 08/24/2018 7:38 AM 08/25/19 7:45 Venous) SPOOL SANDER AM SPOOL SANDER Angélica Granger P.A.-C. LAB BLOOD NON ADD-ON Performing Organization Address City/[facility]/RUST Code Phon e Number [facility] - [address] [place] [address] [facility] PT (Prothrombin Time) with INR (08/24/2018 7:38 AM SPOOL SANDER) [facility] Method Time Signature Prothrombin 11.6 9.4 - 12.5 08/24/2018 [facility] Time, P sec 7:57 AM SPOOL SANDER [facility] INR 1.1 0.9 - 1.1 08/24/2018 [facility] 7:57 AM SPOOL SANDER [facility] Comment: ----ADDITIONAL INFORMATION---- Standard intensity warfarin therapeutic range: 2.0 to 3.0 ?? High intensity warfarin therapeutic rang e: 2.5 to 3.5 Specimen Anatomical Collection Method Collection Time Receive d Time (Source) Location / / Volume Laterality Blood (Blood, 08/24/2018 7:38 AM 08/25/19 19 7:43 Venous) SPOOL SANDER AM SPOOL SANDER Angélica Granger P.A.-C. LAB BLOOD ADD-ON Performing Organization Address City/[facility] Phon e Number [facility] - [address] [place] [address] [address] [facility] (ABNORMAL) Magnesium (08/24/2018 7:38 AM SPOOL SANDER) Analysis Performed At [facility] logist Time Signature Magnesium, S 3.0 (H) 1.7 - 2.3 08/24/2018 [facility] mg/dL 8:53 AM SPOOL SANDER [facility] Specimen Anatomical Collection Method Collection Time Receive d Time (Source) Location / / Volume Laterality Blood (Blood, 08/24/2018 7:38 AM 08/25/19 19 7:43 Venous) SPOOL SANDER AM SPOOL SANDER Angélica Granger P.A.-C. LAB BLOOD ADD-ON Performing Organization Address City/[facility]/ZIP Code Phon e Number [facility] - [address] [place] [address] [facility] 25-Hydroxyvitamin D2 and D3 (08/24/2018 7:38 AM SPOOL SANDER) P athologist Signature 25-Hydroxy D2 <4.0 ng/mL 08/25/2018 [facility] 2:29 PM SPOOL SANDER [address] [facility] 25-Hydroxy D3 55 ng/mL 08/25/2018 [facility] 2:29 PM SPOOL SANDER [facility] 25-Hydroxy D 55 ng/mL 08/25/2018 [facility] Total 2:29 PM SPOOL SANDER [facility] Comment: Interpretation: 51-80 ng/mL (increased r isk of hypercalciuria) ----REFERENCE VALUE---- 25-HYDROXY D TOTAL (D2+D3) Optimum level s in the healthy population are 20-50, patients with bone disease may benefit from higher levels within this r itzel. ----ADDITIONAL INFORMATION---- This test was developed and its performa nce characteristics determined by [facility] in a manner consistent with CLIA requirements. This test has not been cleared or approved by the U.S. Mer d and Drug Administration. Specimen Anatomical Collection Method Collection Time Receive d Time (Source) Location / / Volume Laterality Blood (Blood, 08/24/2018 7:38 AM 08/25/19 19 Venous) SPOOL SANDER 10:36 AM SPOOL SANDER Angélica Granger P.A.-C. LAB BLOOD ADD-ON Performing Organization Address City/State/ZIP Code Phon e Number [facility] [address] [place], [place] [address] [facility] (ABNORMAL) Iron and Total Iron-Binding Capacity (08/24/2018 7:38 AM SPOOL SANDER) Patholo gist Method Time Signature Iron 92 50 - 150 08/24/2018 [facility] mcg/dL 8:53 AM SPOOL SANDER [facility] Total Iron 240 (L) 250 - 400 08/24/2018 [facility] Binding mcg/dL 8:53 AM SPOOL SANDER [facility]ATORIES - Capacity [facility] Percent 38 14 - 50 % 08/24/2018 [facility] Saturation 8:53 AM SPOOL SANDER [facility] Specimen Anatomical Collection Method Collection Time Receive d Time (Source) Location / / Volume Laterality Blood (Blood, 08/24/2018 7:38 AM 08/25/19 19 7:43 Venous) SPOOL SANDER AM SPOOL SANDER Angélica Granger P.A.-C. LAB BLOOD ADD-ON Performing Organization Address City/State/ZIP Code Phon e Number [facility] - [address] [place] [address] [address] [facility] (ABNORMAL) Uric Acid (08/24/2018 7:38 AM SPOOL SANDER) Analysis Performed At Patho logist Time Signature Uric Acid, S 8.6 (H) 3.7 - 8.0 08/24/2018 [facility] mg/dL 8:53 AM SPOOL SANDER [facility] Specimen Anatomical Collection Method Collection Time Receive d Time (Source) Location / / Volume Laterality Blood (Blood, 08/24/2018 7:38 AM 08/25/19 19 7:43 Venous) SPOOL SANDER AM SPOOL SANDER Angélica Granger P.A.-C. LAB BLOOD ADD-ON Performing Organization Address City/State/ZIP Code Phon e Number [facility] - [address] [place] [address] [address] [facility] S-TSH (Thyroid-Stimulating Hormone - Sensitive) (08/24/2018 7:38 AM SPOOL SANDER) P athologist Signature TSH, Sensitive 4.1 0.3 - 4.2 08/24/2018 [facility] mIU/L 8:53 AM [facility] Specimen Anatomical Collection Method Collection Time Receive d Time (Source) Location / / Volume Laterality Blood (Blood, 08/24/2018 7:38 AM 08/25/19 19 7:43 Venous) SPOOL SANDER AM SPOOL SANDER Angélica Granger P.A.-C. LAB BLOOD ADD-ON Performing Organization Address City/[facility]/ZIP Code Phon e Number [facility] - [address] [place] [address] [address] [facility] (ABNORMAL) Hemoglobin A1c (08/24/2018 7:38 AM SPOOL SANDER) Patholo gist Method Time Signature Hemoglobin A1c, 6.0 (H) 4.0 - 5.6 08/24/2018 [facility] B % 8:20 AM [facility] Comment: Hemoglobin A1c values of 5.7-6.4 percent indicate an increased risk for developing diabetes zurdo [place]. In diabetic patients, HbA1c goals should be discussed with healthcare provider. Specimen Anatomical Collection Method Collection Time Receive d Time (Source) Location / / Volume Laterality Blood (Blood, 08/24/2018 7:38 AM 08/25/19 7:43 Venous) SPOOL SANDER AM SPOOL SANDER Angélica Granger P.A.-C. LAB BLOOD ADD-ON Performing Organization Address City/State/ZIP Code Phon e Number [facility] - [address] [place], [place] [address] [facility] (ABNORMAL) Lipid Panel (08/24/2018 7:38 AM SPOOL SANDER) P athologist Signature Cholesterol, 144 mg/dL 08/24/2018 [facility] Total 8:53 AM [facility] Comment: ----REFERENCE VALUE---- Desirable: < 200 Borderline high: 200 - 239 High: > or = 240 Triglycerides 170 (H) mg/dL 08/24/2018 8:53 AM [facility] Comment: ----REFERENCE VALUE---- Normal: <150 Borderline high: 150-199 High: 200-499 Very high: > or =500 Cholesterol, HDL, S 40 >=40 mg/dL 08/24/2018 8:53 AM [facility] Calculated LDL 70 mg/dL 08/24/2018 8:53 AM [facility] Comment: ----REFERENCE VALUE---- Desirable: <100 Above Desirable: 100-129 Borderline high: 130-159 High: 160-189 Very high: > or =190 Cholesterol, Non-HDL, 104 mg/dL 08/24/2018 8:5 3 AM [facility] [place] [facility] Comment: ----REFERENCE VALUE---- Desirable: <130 Above Desirable: 130-159 Borderline high: 160-189 High: 190-219 Very high: > or =220 Specimen Anatomical Collection Method Collection Time Receive d Time (Source) Location / / Volume Laterality Blood (Blood, 08/24/2018 7:38 AM 08/25/19 19 7:43 Venous) SPOOL SANDER AM SPOOL SANDER Angélica Granger P.A.-C. LAB BLOOD ADD-ON Performing Organization Address City/State/ZIP Code Phon e Number [facility] - [address] [place], [place] [address] [facility] (ABNORMAL) CMP (Comprehensive Metabolic Panel) (08/24/2018 7:38 AM SPOOL SANDER) [facility] Method Time Signature Potassium, S 4.0 3.6 - 5.2 08/24/2018 [facility] mmol/L 8:53 AM SPOOL SANDER [facility] Sodium, S 137 135 - 145 08/24/2018 [facility] mmol/L 8:53 AM SPOOL SANDER [facility] Chloride, S 98 98 - 107 08/24/2018 [facility] mmol/L 8:53 AM SPOOL SANDER [facility] - [facility] Bicarbonate, S 26 22 - 29 08/24/2018 [facility] mmol/L 8:53 AM SPOOL SANDER [facility] - [facility] Anion Gap 13 7 - 15 08/24/2018 [facility] 8:53 AM SPOOL SANDER [facility] - [facility] BUN (Blood 51 (H) 8 - 24 08/24/2018 [facility] Urea mg/dL 8:53 AM SPOOL SANDER [facility] - Nitrogen), S [facility] Creatinine 2.71 (H) 0.74 - 08/24/2018 [facility] 1.35 8:53 AM SPOOL SANDER [facility] - mg/dL [facility] eGFR-Non 24 (L) >=60 08/24/2018 [facility] Black/ mL/min/BS 8:53 AM SPOOL SANDER [facility] - [place] A [facility] Comment: ----ADDITIONAL INFORMATION---- Estimated GFR calculated using the 2009 CKD_EPI creatinine equation. eGFR-Black/ 28 (L) >=60 mL/min/BSA 08/24/2018 8:53 [facility] Barbadian AM SPOOL SANDER [facility] - [facility] Comment: ----ADDITIONAL INFORMATION---- Estimated GFR calculated using the 2009 CKD_EPI creatinine equation. Calcium, Total, S 9.1 8.8 - 10.2 08/24/2018 8:53 AM [facility] mg/dL SPOOL SANDER [facility] - [facility] Glucose, S 126 70 - 140 mg/dL 08/24/2018 8:53 AM [facility] SPOOL SANDER [facility] - [facility] Protein, Total, S 6.5 6.3 - 7.9 g/dL 08/24/2018 8:53 A M [facility] SPOOL SANDER [facility] - [facility] Albumin, S 4.3 3.5 - 5.0 g/dL 08/24/2018 8:[address] [facility] - [facility] Aspartate 18 8 - 48 U/L 08/24/2018 8:53 AM [facility] Aminotransferase (AST), S [facility] LAB[facility] RATORIES - [facility] Alkaline Phosphatase, S 90 40 - 129 U/L 08/24/2018 8: [address] [facility] - [facility] Alanine Aminotransferase 20 7 - 55 U/L 08/24/2018 8:5 3 AM [facility] (ALT), S [facility]ATORIES - [facility] Bilirubin, Total, S 0.4 <=1.2 mg/dL 08/24/2018 8:[address] [facility] - [facility] Specimen Anatomical Collection Method Collection Time Receive d Time (Source) Location / / Volume Laterality Blood (Blood, 08/24/2018 7:38 AM 08/25/19 19 7:43 Venous) SPOOL SANDER AM SPOOL SANDER Angélica Granger P.A.-C. LAB BLOOD ADD-ON Performing Organization Address City/[facility]/RUST Code Phon e Number [facility] - [address] Bilirubin, Direct (08/24/2018 7:38 AM SPOOL SANDER) P athologist Signature Bilirubin, <0.2 0.0 - 0.3 08/24/2018 [facility] Direct, S mg/dL 8:53 AM [facility] Specimen Anatomical Collection Method Collection Time Receive d Time (Source) Location / / Volume Laterality Blood (Blood, 08/24/2018 7:38 AM 08/25/19 19 7:43 Venous) SPOOL SANDER AM SPOOL SANDER Angélica Granger P.A.-C. LAB BLOOD ADD-ON Performing Organization Address City/State/[facility] Phon e Number [facility] - [address] documented in this encounter Visit Diagnoses Diagnosis Transplant Liver (HCC) - Primary Medication Therapy Base Engineer Not Anticoa gulant Other Specified Diseases Of Liver Screening Examination Prostate Cancer Immunosuppressed State Transplant Liver (HCC) Medication Therapy Base Engineer Not Anticoa gulant Other Specified Diseases Of Liver Immunosuppressed [place] documented in this encounter Care Teams Auger Press Operator Relationship Specialty Start Date End Date Elsewhere, Pcp PCP - General Family Medicine 07/29/17 documented as of this encounter
--- OUTSIDE RECORDS SUMMARY | 2022-05-17 19:01 | XMS_ITS | Encounter Summary ---
:1955 Author Organization [facility] Address [address] [place] [address] Care Team Providers Name Role Phone Elsewhere, Pcp Primary Care Provider Unavailable Encounter Details Date Type Department Care Team Description 08/24/2018 Orders Only Roshan Muniz splant Liver (HCC) (Primary Dx); Center for A, M.S.N., Medication Ther apy Clinical Research Management Associate Not Anticoagulant Transplantation and R.N., C.C.T. C. 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 [address] [place] [phone] 05/23/2022 Clinical Admitting/Central Communication Scheduling 05/27/2022 Comprehensive Visit Orthopedic Surgery Markus Sams M.D., Ph.D. [address] [place] [phone] 05/29/2022 Office Visit Otorhinolaryngology Dex Matta APRN, C.N.P., M.S.N. [address] [place] [phone] 05/29/2022 Office Visit Otorhinolaryngology Nadeem Maradiaga, P.A.-Arley., M.S. [address] [place] [phone] 05/31/2022 Appointment Radiology Guilherme Matt MPAS, PMaryanne., M.S. [address] [place] [phone] 06/05/2022 Appointment Laboratory Medicine Angélica Granger P.A.-C. [address] [place] [phone] 06/19/2022 Appointment Laboratory Medicine Angélica Granger P.A.-C. [address] [place] [phone] 07/03/2022 Appointment Laboratory Medicine Angélica Granger P.A.-C. [address] [place] [phone] 07/17/2022 Appointment Laboratory Medicine Angélica Granger P.A.-C. [address] [place] [phone] 07/31/2022 Appointment Laboratory Medicine Angélica Granger P.A.-C. [address] [place] [phone] 08/14/2022 Appointment Laboratory Medicine Angélica Granger P.A.-C. [address] [place] [phone] 08/28/2022 Appointment Laboratory Medicine Angélica Granger P.A.-C. [address] [place] [phone] documented as of this encounter Visit Diagnoses Diagnosis Transplant Liver (HCC) - Primary Medication Therapy Skilled Nursing Not Anticoa gulant documented in this encounter Care Teams Animal Cruelty Investigation Supervisor Relationship Specialty Start Date End Date Elsewhere, Pcp PCP - General Family Medicine 07/29/17 documented as of this encounter
--- OUTSIDE RECORDS SUMMARY | 2022-05-17 19:01 | XMS_ITS | Encounter Summary ---
:1955 Author Organization [facility] Address [address] [place] [address] Care Team Providers Name Role Phone Elsewhere, Pcp Primary Care Provider Unavailable Encounter Details Date Type Department Care Team Description 06/08/2018 Hospital Encounter Department of Patricia Bender Pre transplant Recipient Evaluation Exam; Laboratory MEdmundo, M.S. Chronic Kidney Disease Medicine and [address] [place] [address] [facility] [place] [address] 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 [address] [place] [address] 05/23/2022 Clinical Admitting/Central Communication Scheduling 05/27/2022 Comprehensive Visit Orthopedic Surgery Markus Sams M.D., Ph.D. [address] [place] [phone] 05/29/2022 Office Visit Otorhinolaryngology Dex Matta APRN, C.N.P., M.S.N. [address] [place] [phone] 05/29/2022 Office Visit Otorhinolaryngology Nadeem Maradiaga, P.Tom., M.S. [address] [place] [phone] 05/31/2022 Appointment Radiology Guilherme Matt, RASTA, PMaryanne., M.S. [address] [place] [phone] 06/05/2022 Appointment Laboratory Medicine Angélica Granger P.A.-C. [address] [place] [phone] 06/19/2022 Appointment Laboratory Medicine Angélica Granger P.A.-C. [address] [place] [phone] 07/03/2022 Appointment Laboratory Medicine Angélica Granger P.A.-C. [address] [place] [phone] 07/17/2022 Appointment Laboratory Medicine Angélica Granger P.A.-C. [address] [place] [phone] 07/31/2022 Appointment Laboratory Medicine Bárbara Angélica Stern P.A.-C. [address] [place] [phone] 08/14/2022 Appointment Laboratory Medicine Darlinganeesh Angélica Stern P.A.-C. [address] [place] [phone] 08/28/2022 Appointment Laboratory Medicine Angélica Granger P.A.-C. [address] [place] [phone] documented as of this encounter Procedures Procedure Name Priority Date/Time Associated Diagnosis Comme nts HLA CLASS II SAB Routine 06/29/2018 8:54 AM Pretransplant Resu lts for this ANTIBODY SCREEN WELDER G[employer] AUTOMATIC Recipient Evaluation proc edure are in Exam the results Chronic Kidney Disease secti on. HLA CLASS I SAB Routine 06/29/2018 8:54 AM Pretransplant Resul ts for this ANTIBODY SCREEN WELDER GAS AUTOMATIC Recipient Evaluation proc edure are in Exam the results Chronic Kidney Disease secti on. documented in this encounter Results HLA Class II SAB Antibody Screen (06/29/2018 8:54 AM WELDER GAS AUTOMATIC) [facility] Method Time Signature Class II SAB Positive Not Applicable 07/02/2018 [facility] Overall 9:13 AM WELDER GAS AUTOMATIC LABORATORIES - [facility] Class II SAB 81 07/02/2018 [facility] cPRA 9:13 AM WELDER GAS AUTOMATIC [facility] Comment: ----ADDITIONAL INFORMATION---- This PRA is a [facility] calculated PRA. PRA is based on the antigen frequency of the Tissue Typing patient a nd donor population. ??PRA reflects all antibodie s with a normalized value (MFI) above 300. SAB DRB1 Specificity NONE 07/02/2018 9:13 AM WELDER GAS AUTOMATIC [facility] SAB EEG133 Specificity see below 07/02/2018 9: 13 AM WELDER GAS AUTOMATIC [facility] Comment: 53[310] Format: Serologic equivalent/abbreviated specificity [Normalized Value] shown in decreasing o rder. Note: A serologic equivalent/abbreviated specifi city displayed multiple times could indicate different alleles. SAB DQB1 Specificity see below 07/02/2018 9:13 AM [facility] Comment: 6[691], 6[460], 5[377], 6[339] Format: Serologic equivalent/abbreviated specificity [Normalized Value] shown in decreasing o rder. Note: A serologic equivalent/abbreviated specifi city displayed multiple times could indicate different alleles. SAB DPB1 Specificity NONE 07/02/2018 9:[address] [facility] Comment: ----ADDITIONAL INFORMATION---- Method: [facility] Performing Laboratory CLIA# [id number] Specimen Anatomical Collection Method Collection Time Receive d Time (Source) Location / / Volume Laterality Blood (Blood, 06/29/2018 8:54 AM 06/30/19 9:36 Venous) WELDER G[employer] AUTOMATIC AM WELDER G[employer] AUTOMATIC Resulting Agency Comment Mailed In Specimen Patricia Bender P.A.-C., M.S. LAB HLA ORDERABLES Performing Organization Address City/State/ZIP Code Phon e Number [facility] - [address] [place] [address] [facility] HLA Class I SAB Antibody Screen (06/29/2018 8:54 AM WELDER GAS AUTOMATIC) [facility] Method Time Signature Class I SAB Positive Not Applicable 07/02/2018 [facility] Overall 7:[address] [facility] LABORATORIES - Result [facility] Class I SAB 7 07/02/2018 [facility] cPRA 7:43 AM [facility] Comment: ----ADDITIONAL INFORMATION---- This PRA is a [facility] calculated PRA. PRA is based on the antigen frequency of the Tissue Typing patient a nd donor population. ??PRA reflects all antibodie s with a normalized value (MFI) above 300. SAB A Specificity see below 07/02/2018 7:[address] [facility] Comment: 29[386] Format: Serologic equivalent/abbreviated specificity [Normalized Value] shown in decreasing o rder. Note: A serologic equivalent/abbreviated specifi city displayed multiple times could indicate different alleles. SAB B Specificity see below 07/02/2018 7:[address] [facility] Comment: 54[595] Format: Serologic equivalent/abbreviated specificity [Normalized Value] shown in decreasing o rder. Note: A serologic equivalent/abbreviated specifi city displayed multiple times could indicate different alleles. SAB C Specificity NONE 07/02/2018 7:43 AM WELDER G[employer] AUTOMATIC [facility] LABORATORIES - [facility] Comment: ----ADDITIONAL INFORMATION---- Method: Luminex Performing Laboratory CLIA# [id number] Specimen Anatomical Collection Method Collection Time Receive d Time (Source) Location / / Volume Laterality Blood (Blood, 06/29/2018 8:54 AM 06/30/19 19 9:36 Venous) WELDER G[employer] AUTOMATIC AM WELDER [employer] AUTOMAT[employer] Resulting Agency Comment Mailed In Specimen Patricia Bender P.A.-C., M.S. LAB HLA ORDERABLES Performing Organization Address City/State/ZIP Code Phon e Number [facility] LABORATORIES - [address] documented in this encounter Visit Diagnoses Diagnosis Pretransplant Recipient Evaluation Exam Chronic Kidney Disease documented in this encounter Care Teams Dsp Engineer Relationship Specialty Start Date End Date Elsewhere, Pcp PCP - General Family Medicine 07/29/17 documented as of this encounter
--- OUTSIDE RECORDS SUMMARY | 2022-05-17 19:01 | XMS_ITS | Encounter Summary ---
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 [address] [place] [phone] 05/23/2022 Clinical Admitting/Central Communication Scheduling 05/27/2022 Comprehensive Visit Orthopedic Surgery Markus Sams M.D., Ph.D. [address] [place] [phone] 05/29/2022 Office Visit Otorhinolaryngology Dex Matta, RAMONA, C.N.P., M.S.N. [address] [place] [phone] 05/29/2022 Office Visit Otorhinolaryngology Nadeem Maradiaga, Jennifer., M.S. [address] [place] [phone] 05/31/2022 Appointment Radiology Guilherme Matt, Edmundo MAGDALENO, M.S. [address] [place] [phone] 06/05/2022 Appointment Laboratory Medicine Angélica Granger P.A.-C. [address] [place] [phone] 06/19/2022 Appointment Laboratory Medicine Angélica Granger P.A.-C. [address] [place] [phone] 07/03/2022 Appointment Laboratory Medicine Angélica Granger P.A.-C. [address] [place] [phone] 07/17/2022 Appointment Laboratory Medicine Angélica Granger P.A.-C. [address] [place] [phone] 07/31/2022 Appointment Laboratory Medicine Angélica Granger P.A.-C. [address] [place] [phone] 08/14/2022 Appointment Laboratory Medicine GunnesonAngélica P.A.-C. [address] [place] [address] 08/28/2022 Appointment Laboratory Medicine Angélica Granger Edmundo Stern [address] [place] [phone] documented as of this encounter Procedures Procedure Name Priority Date/Time Associated Comments Diagnosis TACROLIMUS LEVEL, B Routine 05/10/2018 9:00 AM Re sults for this INTERNAL AUDIT CONSULTANT procedure are i n the results section. documented in this encounter Results (ABNORMAL) Tacrolimus, B (05/10/2018 9:00 AM INTERNAL AUDIT CONSULTANT) [facility] Method Time Signature Tacrolimus, B 2.5 (L) 5.0-15.0 05/12/2018 [facility] (Trough) 10:37 AM INTERNAL AUDIT CONSULTANT SUPERIOR ng/mL DRIVE [facility] Tacrolimus 05/09/2018 05/12/2018 [facility] Blood Date of 10:37 AM INTERNAL AUDIT CONSULTANT SUPERIOR Last Dose DRIVE [facility] Tacrolimus 2100 05/12/2018 [facility] Time of Last 10:37 AM INTERNAL AUDIT CONSULTANT SUPERIOR Dose DRIVE [facility] Tacrolimus Not Specified mg 05/12/2018 [facility] Blood Dose, mg 10:37 AM INTERNAL AUDIT CONSULTANT SUPERIOR DRIVE [facility] Comment: ----ADDITIONAL INFORMATION---- [...] / Volume Laterality Blood 05/10/2018 9:00 AM 8 7:08 INTERNAL AUDIT CONSULTANT AM INTERNAL AUDIT CONSULTANT Vanessa Parra APRN, C.N.P. LAB BLOOD NON ADD-ON Performing Organization Address City/State/ZIP Code Phon e Number [facility] [address] [place], [place] [address] [facility] documented in this encounter Visit Diagnoses Not on filedocumented in this encounter Care Teams Wellhead Pumper Relationship Specialty Start Date End Date Elsewhere, Pcp PCP - General Family Medicine 07/29/17 documented as of this encounter
--- OUTSIDE RECORDS SUMMARY | 2022-05-17 19:01 | XMS_ITS | Encounter Summary ---
:1955 Author Organization [facility] Address [address] [place] [address] Care Team Providers Name Role Phone Elsewhere, Pcp Primary Care Provider Unavailable Reason for Referral Transplant (Routine) - Closed Specialty Diagnoses / Procedures Referred By Contact Refer red To Contact Transplant Surgery / Diagnoses Transplant Liver (HCC) Medication Therapy Prison Not Anticoagulant Anatoliy Bernardo Rochest [facility] Transplant [place] [address] [place] [address] Referral ID Status Reason Start Date Expiration Date Visits Requ ested Visits Authorized [id number] Closed 07/08/2018 07/08/2019 1 1 PE MARKER Reason for Visit Reason Onset Date Comments Telephone 07/08/2018 Derm appt Encounter Details Date Type Department Care Team Description 07/08/2018 Clinical Curt Marie, Teleph one ([facility] for latia Cortez) Transplantation and M.S.N., Clinical Regeneration R.N., in [facility] [address] [place] [address] [place] [phone] [facility] [phone] [place] [phone] Social History Tobacco Use Types Packs/Day Years [...] at Date Recorded Male 05/16/2020 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 - 07/08/2018 9:15 AM CST Order placed for dermatology for August 25. PE MARKER Telephone Encounter - Demetria Cabrera - 07/08/2018 9:02 AM CST Patient would like a skin check when he comes for his Annual 08/25-08/26. Please issue order as he wouldlike a skin check for his scalp lesion and cancer screening. Thank you. PE MARKER documented in this encounter Plan of Treatment Upcoming Encounters Date Type Specialty Care Team Description 05/22/2022 Appointment Laboratory Medicine Angélica Granger P.A.-C. [address] [place] [phone] 05/23/2022 Clinical Admitting/Central Communication Scheduling 05/27/2022 Comprehensive Visit Orthopedic Surgery Markus Sams M.D., Ph.D. [address] [place] [phone] 05/29/2022 Office Visit Otorhinolaryngology Dex Matta APRN, C.N.P., M.S.N. [address] [place] [phone] 05/29/2022 Office Visit Otorhinolaryngology Nadeem Maradiaga, Jennifer., M.S. [address] [place] [phone] 05/31/2022 Appointment Radiology Guilherme Matt MPAS, Edmundo, M.S. [address] [place] [phone] 06/05/2022 Appointment Laboratory Medicine Angélica Granger P.A.-C. [address] [place] [phone] 06/19/2022 Appointment Laboratory Medicine Angélica Granger P.A.-C. [address] [place] [phone] 07/03/2022 Appointment Laboratory Medicine Angélica Granger P.A.-C. [address] [place] [phone] 07/17/2022 Appointment Laboratory Medicine Angélica Granger P.A.-C. [address] [place] [phone] 07/31/2022 Appointment Laboratory Medicine Angélica Granger P.A.-C. [address] [place] [phone] 08/14/2022 Appointment Laboratory Medicine Angélica Granger P.A.-C. [address] [place] [phone] 08/28/2022 Appointment Laboratory Medicine Angélica Granger P.A.-C. [address] [place] [phone] Scheduled Referrals Name Type Priority Associated Diagnoses Order S chedule Transplant - Outpatient Referral Routine Transplant Liver Expe cted: Dermatology consult (HCC) 08/25/2018 (clinic) Medication Therapy (Approxim ate), Prison Not Expires: Anticoagulant 12/06/2018 documented as of this encounter Visit Diagnoses Diagnosis Transplant Liver (HCC) - Primary Medication Therapy Wind Tunnel Engineer Not Anticoa gulant documented in this encounter Care Teams Supervisor [employer] Relationship Specialty Start Date End Date Elsewhere, Pcp PCP - General Family Medicine 07/29/17 documented as of this encounter
--- OUTSIDE RECORDS SUMMARY | 2022-05-17 19:01 | XMS_ITS | Encounter Summary ---
:1955 Author Organization [facility] Address [address] [place] [address] Care Team Providers Name Role Phone Elsewhere, Pcp Primary Care Provider Unavailable Reason for Visit Reason Comments Med Refill Encounter Details Date Type Department Care Team Description 05/05/2018 Refill Division of Gastroenterology in [facility], Med Refill [place], [place] M.B.B.S. 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 [address] [place] [phone] 05/23/2022 Clinical Admitting/Central Communication Scheduling 05/27/2022 Comprehensive Visit Orthopedic Surgery Markus Sams M.D., Ph.D. [address] [place] [phone] 05/29/2022 Office Visit Otorhinolaryngology Dex Matta, RAMONA, C.N.P., M.S.N. [address] [place] [phone] 05/29/2022 Office Visit Otorhinolaryngology Nadeem Maradiaga, P.Murtaza.-C., M.S. [address] [place] [phone] 05/31/2022 Appointment Radiology Guilherme Matt MPAS, Miri.Marie., M.S. [address] [place] [phone] 06/05/2022 Appointment Laboratory Medicine Angélica Granger P.A.-C. [address] [place] [phone] 06/19/2022 Appointment Laboratory Medicine Angélica Granger P.A.-C. [address] [place] [phone] 07/03/2022 Appointment Laboratory Medicine Angélica Granger P.A.-C. [address] [place] [phone] 07/17/2022 Appointment Laboratory Medicine Angélica Granger P.A.-C. [address] [place] [phone] 07/31/2022 Appointment Laboratory Medicine Angélica Granger P.A.-C. [address] [place] [address] [phone] 08/14/2022 Appointment Laboratory Medicine Angélica Granger P.A.-C. [address] [place] [phone] 08/28/2022 Appointment Laboratory Medicine Angélica Granger P.A.-C. [address] [place] [phone] documented as of this encounter Visit Diagnoses Diagnosis Transplant Liver (HCC) documented in this encounter Care Teams Node Js Developer Relationship Specialty Start Date End Date Elsewhere, Pcp PCP - General Family Medicine 07/29/17 documented as of this encounter
--- OUTSIDE RECORDS SUMMARY | 2022-05-17 19:01 | XMS_ITS | Encounter Summary ---
:1955 Author Organization [facility] Address [address] [place] [address] Care Team Providers Name Role Phone Elsewhere, Pcp Primary Care Provider Unavailable Reason for Visit Reason Comments Med Refill Encounter Details Date Type Department Care Team Description 08/04/2018 Refill Division of Gastroenterology in Tracy Marie M.D. 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 [address] [place] [phone] 05/23/2022 Clinical Admitting/Central Communication Scheduling 05/27/2022 Comprehensive Visit Orthopedic Surgery Markus Sams M.D., Ph.D. [address] [place] [address] [phone] 05/29/2022 Office Visit Otorhinolaryngology Dex Matta APRN, C.N.P., M.S.N. [address] [place] [phone] 05/29/2022 Office Visit Otorhinolaryngology Nadeem Maradiaga, P.Murtaza.-Arley., M.S. [address] [place] [phone] 05/31/2022 Appointment Radiology Guilherme Matt MPAS, P.Murtaza.Marie., M.S. [address] [place] [phone] 06/05/2022 Appointment Laboratory Medicine Angélica Granger P.A.-C. [address] [place] [phone] 06/19/2022 Appointment Laboratory Medicine Angélica Granger P.A.-C. [address] [place] [phone] 07/03/2022 Appointment Laboratory Medicine Angélica Granger P.A.-C. [address] [place] [phone] 07/17/2022 Appointment Laboratory Medicine Angélica Granger P.A.-C. [address] [place] [phone] 07/31/2022 Appointment Laboratory Medicine Angélica Granger P.A.-C. [address] [place] [phone] 08/14/2022 Appointment Laboratory Medicine Angélica Granger P.A.-C. [address] [place] [phone] 08/28/2022 Appointment Laboratory Medicine Angélica Granger P.A.-C. [address] [place] [phone] documented as of this encounter Visit Diagnoses Diagnosis Transplant Liver (HCC) documented in this encounter Care Teams Carton Marker Machine Relationship Specialty Start Date End Date Elsewhere, Pcp PCP - General Family Medicine 07/29/17 documented as of this encounter
--- OUTSIDE RECORDS SUMMARY | 2022-05-17 19:01 | XMS_ITS | Encounter Summary ---
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 [address] [place] [phone] 05/23/2022 Clinical Admitting/Central Communication Scheduling 05/27/2022 Comprehensive Visit Orthopedic Surgery Markus Sams M.D., Ph.D. [address] [place] [phone] 05/29/2022 Office Visit Otorhinolaryngology Dex Matta, RAMONA, C.N.P., M.S.N. [address] [place] [phone] 05/29/2022 Office Visit Otorhinolaryngology Nadeem Maradiaga, Jennifer., M.S. [address] [place] [phone] 05/31/2022 Appointment Radiology Guilherme Matt, Edmundo MAGDALENO, M.S. [address] [place] [phone] 06/05/2022 Appointment Laboratory Medicine Angélica Granger P.A.-C. [address] [place] [phone] 06/19/2022 Appointment Laboratory Medicine Angélica Granger P.A.-C. [address] [place] [phone] 07/03/2022 Appointment Laboratory Medicine Angélica Granger P.A.-C. [address] [place] [phone] 07/17/2022 Appointment Laboratory Medicine Angélica Granger P.A.-C. [address] [place] [phone] 07/31/2022 Appointment Laboratory Medicine Angélica Granger P.A.-C. [address] [place] [phone] 08/14/2022 Appointment Laboratory Medicine Angélica Granger P.A.-C. [address] [place] [phone] 08/28/2022 Appointment Laboratory Medicine Darlinganeesh Angélica Stern P.A.-C. [address] [place] [phone] documented as of this encounter Procedures Procedure Name Priority Date/Time Associated Comments Diagnosis TACROLIMUS LEVEL, B Routine 06/29/2018 8:45 AM Re sults for this QA ENGINEER procedure are i n the results section. documented in this encounter Results (ABNORMAL) Tacrolimus, B (06/29/2018 8:45 AM QA ENGINEER) athologist Signature Tacrolimus, B 2.8 (L) 5.0-15.0 07/02/2018 [facility] (Trough) 11:20 AM QA ENGINEER [address] ng/mL [facility] Comment: ----ADDITIONAL [...] its performa nce characteristics determined by [facility] in a manner consistent with CLIA requirements. This test has not been cleared or approved by the U.S. Mer d and Drug Administration. Specimen Anatomical Collection Method Collection Time Receive d Time (Source) Location / / Volume Laterality Blood 06/29/2018 8:45 AM 9 7:52 QA ENGINEER AM QA ENGINEER Resulting Agency Comment Mailed In Specimen Vanessa Parra APRN, C.N.P. LAB BLOOD NON ADD-ON Performing Organization Address City/State/ZIP Code Phon e Number [facility] [address] [place], [place] [address] [facility] documented in this encounter Visit Diagnoses Not on filedocumented in this encounter Care Teams It Systems Administrator Relationship Specialty Start Date End Date Elsewhere, Pcp PCP - General Family Medicine 07/29/17 documented as of this encounter
--- OUTSIDE RECORDS SUMMARY | 2022-05-17 19:01 | XMS_ITS | Encounter Summary ---
:1955 Author Organization [facility] Address [address] [place] [address] Care Team Providers Name Role Phone Elsewhere, Pcp Primary Care Provider Unavailable Reason for Visit Reason Comments Post-Transplant Evaluation Outpatient (Routine) - Closed Specialty Diagnoses / Procedures Referred By Contact Refer red To Contact Transplant Diagnoses Transplant Liver (HCC) Medication Therapy Yacht Rigger Not Anticoagulant Other Specified Diseases Of Liver Immunosuppressed State Angélica Granger P.A.-C. [place] [address] [place] [phone] Referral ID Status Reason Start Date Expiration Date Visits Requ ested Visits Authorized [id number] Closed 06/25/2018 06/25/2019 1 1 Encounter Details Date Type Department Care Team Description 08/24/2018 Nurse Only Angélica Ching P.A.-Janette [address] [place] [phone] Post-Transplant Center for Transplantation Roshan Grace M.S.N., R.N., C.C.T.C. [address] [place] [phone] Evaluation and Clinical Regeneration in [facility] jose [address] [place] [phone] Social History Tobacco Use Types Packs/Day [...] Date Recorded Male 05/16/2020 4:27 PM BUSINESS SYSTEMS LEAD documented as of this encounter Last Filed Vital Signs Vital Sign Reading Time Taken Comments Blood Pressure 143/86 08/24/2018 8:35 AM BUSINESS SYSTEMS LEAD Pulse 50 08/24/2018 8:35 AM BUSINESS SYSTEMS LEAD Temperature 36 ??C (96.8 ??F) 08/24/2018 8:35 AM BUSINESS SYSTEMS LEAD Respiratory Rate - - Oxygen Saturation - - Inhaled Oxygen Concentration - - Weight 83.9 kg (184 lb 15.5 oz) 08/24/2018 8:35 AM BUSINESS SYSTEMS LEAD Height - - Body Mass Index 27.05 [...] unless otherwise dictated by provider. Bruce Julian Chanelsen has labs drawn at [facility]. ---- Bruce Singh's local provider is Dr. Cole at [facility]. ---- Reviewed current test results, vital signs, and follow up plans with patient. Medications reconciled. Reviewed with patient general post transplant care. Patient verbalized understanding of all information. Patient to be seen by Transplant Center Staff for further assessment and management. NESS SYSTEMS LEAD documented in this encounter Plan of Treatment Upcoming Encounters Date Type Specialty Care Team Description 05/22/2022 Appointment Laboratory Medicine Angélica Granger P.A.-C. [address] [place] [phone] 05/23/2022 Clinical Admitting/Central Communication Scheduling 05/27/2022 Comprehensive Visit Orthopedic Surgery Markus Sams M.D., Ph.D. [address] [place] [phone] 05/29/2022 Office Visit Otorhinolaryngology GosDex jackson APRN, C.N.P., M.S.N. [address] [place] [phone] 05/29/2022 Office Visit Otorhinolaryngology Nadeem Maradiaga P.A.-C., M.S. [address] [place] [phone] 05/31/2022 Appointment Radiology Guilherme Matt MPAS, P.A.-C., M.S. [address] [place] [phone] 06/05/2022 Appointment Laboratory Medicine Angélica Granger P.A.-C. [address] [place] [phone] 06/19/2022 Appointment Laboratory Medicine Angélica Granger P.A.-C. [address] [place] [phone] 07/03/2022 Appointment Laboratory Medicine Angélica Granger P.A.-C. [address] [place] [phone] 07/17/2022 Appointment Laboratory Medicine Angélica Granger P.A.-C. [address] [place] [phone] 07/31/2022 Appointment Laboratory Medicine Angélica Granger P.A.-C. [address] [place] [phone] 08/14/2022 Appointment Laboratory Medicine Angélica Granger P.A.-C. [address] [place] [phone] 08/28/2022 Appointment Laboratory Medicine Angélica Granger P.A.-C. [address] [place] [phone] documented as of this encounter Visit Diagnoses Diagnosis Transplant Liver (HCC) Medication Therapy Yacht Rigger Not Anticoa gulant Other Specified Diseases Of Liver Immunosuppressed State documented in this encounter Care Teams New Product Trainer Relationship Specialty Start Date End Date Elsewhere, Pcp PCP - General Family Medicine 07/29/17 documented as of this encounter
--- OUTSIDE RECORDS SUMMARY | 2022-05-17 19:01 | XMS_ITS | Encounter Summary ---
:1955 Author Organization [facility] Address [address] [place] [address] Care Team Providers Name Role Phone Elsewhere, Pcp Primary Care Provider Unavailable Reason for Visit Reason Onset Date Comments orders needed 06/24/2018 Encounter Details Date Type Department Care Team Description 06/24/2018 Clinical Communication Curt Vázquez , orders needed [facility] and [phone] Clinical Regeneration in (Work) [place], [place] [address] [place] [phone] Social History Tobacco Use Types Packs/Day [...] at Date Recorded Male 05/16/2020 4:27 PM 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 ATION SALES CONSULTANT Telephone Encounter - Patricia Pinto R.N., C.C.T.C. - 06/29/2018 10:23 AM CST I am happy to see him, but does he also want to meet with a metal slitter? Thanks! ATION SALES CONSULTANT Telephone Encounter - Diana Gambino - 06/29/2018 7:[address] order for nurse visit. Thank you! Diana ATION SALES CONSULTANT Telephone Encounter - Patricia Pinto R.N., C.C.T.C. - 06/26/2018 3:41 PM CST The patient will only need a nephrology appt and myself. Thanks! ATION SALES CONSULTANT Telephone Encounter - Diana Gambino - 06/24/2018 10:52 AM CST Liver appt coordinators called because the pt is coming on 08/24 for liver annual and would like pt to be seen by us. Please advise. Thank you! Diana ATION SALES CONSULTANT documented in this encounter Plan of Treatment Upcoming Encounters Date Type Specialty Care Team Description 05/22/2022 Appointment Laboratory Medicine Angélica Granger P.A.-C. [address] [place] [phone] 05/23/2022 Clinical Admitting/Central Communication Scheduling 05/27/2022 Comprehensive Visit Orthopedic Surgery Markus Sams M.D., Ph.D. [address] [place] [phone] 05/29/2022 Office Visit Otorhinolaryngology Dex Matta, RAMONA, C.N.P., M.S.N. [address] [place] [phone] 05/29/2022 Office Visit Otorhinolaryngology Nadeem Maradiaga P.A.-C., M.S. [address] [place] [phone] 05/31/2022 Appointment Radiology Guilherme Matt MPAS, P.A.-C., M.S. [address] [place] [phone] 06/05/2022 Appointment Laboratory Medicine Angélica Granger P.A.-C. [address] [place] [phone] 06/19/2022 Appointment Laboratory Medicine Angélica Granger P.A.-C. [address] [place] [phone] 07/03/2022 Appointment Laboratory Medicine Angélica Granger P.A.-C. [address] [place] [phone] 07/17/2022 Appointment Laboratory Medicine Angélica Granger P.A.-C. [address] [place] [phone] 07/31/2022 Appointment Laboratory Medicine Angélica Granger P.A.-C. [address] [place] [phone] 08/14/2022 Appointment Laboratory Medicine Angélica Granger P.A.-C. [address] [place] [phone] 08/28/2022 Appointment Laboratory Medicine Angélica Granger P.A.-C. [address] [place] [phone] documented as of this encounter Visit Diagnoses Not on filedocumented in this encounter Care Teams Automotive Electrician Relationship Specialty Start Date End Date Elsewhere, Pcp PCP - General Family Medicine 07/29/17 documented as of this encounter
--- OUTSIDE RECORDS SUMMARY | 2022-05-17 19:01 | XMS_ITS | Encounter Summary ---
:1955 Author Organization [facility] Address [address] [place] [address] Care Team Providers Name Role Phone Elsewhere, Pcp Primary Care Provider Unavailable Reason for Referral Transplant (Routine) - Closed Specialty Diagnoses / Procedures Referred By Contact Refer red To Contact Transplant Surgery / Salvador Douglas Brigitte Camejo M.D. [address] [place] [address] Referral ID Status Reason Start Date Expiration Date Visits Requ ested Visits Authorized [id number] Closed 08/25/2018 08/25/2019 1 1 ATION PROGRAM SPECIALIST Reason for Visit Outpatient (Routine) - Closed Specialty Diagnoses / Procedures Referred By Contact Refer red To Contact Transplant [place] [address] Referral ID Status Reason Start Date Expiration Date Visits Requ ested Visits Authorized [id number] Closed 10/10/2017 04/08/2018 1 1 Encounter Details Date Type Department Care Team Description 08/25/2018 Office Visit Hao Vela I Depressed Partial Remission (HCC) (Primary Dx); Milka Camejo M.D. Alcohol Mild Use Disorder (Abuse) In Rem ission Transplantation and [address] [facility] in [place], [place] [address] [facility] [phone] [place] [address] [phone] Social History Tobacco Use Types Packs/Day Years [...] Date Recorded Male 05/16/2020 4:27 PM EDUCATION PROGRAM SPECIALIST documented as of this encounter Progress Notes Salvador Douglas M.D. - 08/25/2018 10:00 AM CST Date: 08/25/18 Patient: Bruce Singh Date of : 1955 Age: 62 y.o. Gender: male Address: [address] [place] [phone] CHIEF COMPLAINT/PURPOSE OF VISIT Followup for bipolar disorder, anxiety, attentional problems, and alcohol abuse in patient, status post OLT times two, who is now a kidney transplant candidate, not on hemodialysis. ?? HISTORY OF PRESENT ILLNESS Mr. Bruce Singh is a 62-year-old, single, never , male from [place], [place].He underwent his first liver transplantation for [...] to joke and be the life ofthe republican.?? He explains that he feels more inhibited [...] of friends alternated staying with him in [place]. CURRENT MEDICATIONS Current Outpatient Prescriptions Medication Sig [...] transplant center in 4-12 months. PACT: 07/27 ATION PROGRAM SPECIALIST documented in this encounter Plan of Treatment Upcoming Encounters Date Type Specialty Care Team Description 05/22/2022 Appointment Laboratory Medicine Angélica Granger P.A.-C. [address] [place] [phone] 05/23/2022 Clinical Admitting/Central Communication Scheduling 05/27/2022 Comprehensive Visit Orthopedic Surgery Markus Sams M.D., Ph.D. [address] [place] [phone] 05/29/2022 Office Visit Otorhinolaryngology Dex Matta APRN, C.N.P., M.S.N. [address] [place] [phone] 05/29/2022 Office Visit Otorhinolaryngology Nadeem Maradiaga, PMaryanne., M.S. [address] [place] [phone] 05/31/2022 Appointment Radiology Guilherme Matt MPAS, Jennifer., M.S. [address] [place] [phone] 06/05/2022 Appointment Laboratory Medicine Angélica Granger P.A.-C. [address] [place] [phone] 06/19/2022 Appointment Laboratory Medicine Angélica Granger P.A.-C. [address] [place] [address] [phone] 07/03/2022 Appointment Laboratory Medicine Angélica Granger P.A.-C. [address] [place] [phone] 07/17/2022 Appointment Laboratory Medicine Angélica Granger P.A.-C. [address] [place] [phone] 07/31/2022 Appointment Laboratory Medicine Angélica Granger P.A.-C. [address] [place] [phone] 08/14/2022 Appointment Laboratory Medicine Angélica Granger P.A.-C. [address] [place] [phone] 08/28/2022 Appointment Laboratory Medicine Angélica Granger P.A.-C. [address] [place] [phone] Scheduled Referrals Name Type Priority Associated Diagnoses Order [facility] Recipient Outpatient Referral Routine Expected : Post-Transplant 11/21/2020 Liver office visit (Approxim ate), (clinic) - Psych Expires: 08/25/2021 documented as of this encounter Visit Diagnoses Diagnosis Bipolar I Depressed Partial Remission (H CC) - Primary Alcohol Mild Use Disorder (Abuse) In Rem ission documented in this encounter Additional Health Concerns Assessment Noted Time PHQ-9 Depression Total Score: 2 08/25/2018 9:45 AM EDUCATION PROGRAM SPECIALIST documented as of this encounter Care Teams Counting Machine Operator Relationship Specialty Start Date End Date Elsewhere, Pcp PCP - General Family Medicine 07/29/17 documented as of this encounter
--- OUTSIDE RECORDS SUMMARY | 2022-05-17 19:02 | XMS_ITS | Encounter Summary ---
:1955 Author Organization [facility] Address [address] [place] [address] Care Team Providers Name Role Phone Elsewhere, Pcp Primary Care Provider Unavailable Encounter Details Date Type Department Care Team Description 03/27/2018 Comprehensive Visit Department of Antoni Bowman M.D. 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 Precautions/Restrictions: None Occupational Profile: Level of [place]: Independent with all activities of daily living [...] Tests: Pre-transplant Screen FRAILTY INDEX: BMI: 27.9 Stage Director Strength score: 36.5 kg 0 = does not meet criteria 5-meter Walk score: 3.8 seconds 0 = does not meet criteria Exhaustion: 1 = meets criteria Weight Loss: 0 = does not meet criteria Physical Activity: 0 = does not meet criteria Total Fried Frailty Score: 1-2 = pre-frail SHORT PHYSICAL PERFORMANCE BATTERY (SPPB) Balance Testing Uxbc-bi-Deiv Stand: 1 = Hold for 10 sec [...] Laboratory Medicine Angélica Granger P.A.-C. [address] [place] [phone] 05/23/2022 Clinical Admitting/Central Communication Scheduling 05/27/2022 Comprehensive Visit Orthopedic Surgery Markus Sams M.D., Ph.D. [address] [place] [phone] 05/29/2022 Office Visit Otorhinolaryngology Dex Matta APRN, C.N.P., M.S.N. [address] [place] [phone] 05/29/2022 Office Visit Otorhinolaryngology Nadeem Maradiaga P.A.-C., M.S. [address] [place] [phone] 05/31/2022 Appointment Radiology Guilherme Matt MPAS, P.A.-C., M.S. [address] [place] [phone] 06/05/2022 Appointment Laboratory Medicine Angélica Granger P.A.-C. [address] [place] [phone] 06/19/2022 Appointment Laboratory Medicine Angélica Granger P.A.-C. [address] [place] [phone] 07/03/2022 Appointment Laboratory Medicine Angélica Granger P.A.-C. [address] [place] [phone] 07/17/2022 Appointment Laboratory Medicine Angélica Granger P.A.-C. [address] [place] [phone] 07/31/2022 Appointment Laboratory Medicine Angélica Granger P.A.-C. [address] [place] [phone] 08/14/2022 Appointment Laboratory Medicine Angélica Granger P.A.-C. [address] [place] [phone] 08/28/2022 Appointment Laboratory Medicine Angélica Granger P.A.-C. [address] [place] [phone] documented as of this encounter Visit Diagnoses Diagnosis Pretransplant Recipient Evaluation Exam - Primary Chronic Kidney Disease Stage 4 Glomerula r Filtration Rate 15-29 (HCC) documented in this encounter Care Teams Health Care Coach Relationship Specialty Start Date End Date Elsewhere, Pcp PCP - General Family Medicine 07/29/17 documented as of this encounter
--- OUTSIDE RECORDS SUMMARY | 2022-05-17 19:02 | XMS_ITS | Encounter Summary ---
:1955 Author Organization [facility] Address [address] [place] [address] Care Team Providers Name Role Phone Elsewhere, Pcp Primary Care Provider Unavailable Reason for Visit Reason Comments UNOS (RST) UNOS Listing UNOS (RST) ABO Verification Encounter Details Date Type Department Care Team Description 04/07/2018 Documentation Curt Bhardwaj, RACHELL S (RST) (UNOS Center for Patricia Azevedo, R.NDemetrius, Listing); U NOS (RST) Transplantation and C.C.T.C. 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 - 04/07/2018 10:30 AM CDT Patient listed for kidney transplant in [facility] on 04/07/2018. Patient met minimal listing requirements. Blood type O positive, dates 06/10/2013 at 7:30 and 06/15/2013 at 13:18 Patient notified. Patient verbalized understanding. Diagnosis:Cyclosporin Nephrotoxicity Consent date: 03/25/2018 Education/Teachback date: 03/27/2018 Karnofsky: 80 Specialty consult erp manager date: 03/25/2018 Surgeon date: 03/27/2018 Nurse Coordinator date: 03/27/2018 Manufacturing Production Technician date: 03/25/2018 Pharmacist date: 03/26/2018 Outpatient Dietitian Date: 03/26/2018 Dialysis Date: na GFR date: [...] Laboratory Medicine Angélica Granger P.A.-C. [address] [place] [address] [phone] 05/23/2022 Clinical Admitting/Central Communication Scheduling 05/27/2022 Comprehensive Visit Orthopedic Surgery Markus Sams M.D., Ph.D. [address] [place] [phone] 05/29/2022 Office Visit Otorhinolaryngology Dex Matta APRN, C.N.P., M.S.N. [address] [place] [phone] 05/29/2022 Office Visit Otorhinolaryngology Nadeem Maradiaga, P.Murtaza.-C., M.S. [address] [place] [address] [phone] 05/31/2022 Appointment Radiology Guilherme Matt MPAS, PEdgar.Marie., M.S. [address] [place] [phone] 06/05/2022 Appointment Laboratory Medicine Angélica Granger P.A.-C. [address] [place] [address] [phone] 06/19/2022 Appointment Laboratory Medicine Angélica Granger P.A.-C. [address] [place] [phone] 07/03/2022 Appointment Laboratory Medicine Angélica Granger P.A.-C. [address] [place] [phone] 07/17/2022 Appointment Laboratory Medicine Angélica Granger P.A.-C. [address] [place] [phone] 07/31/2022 Appointment Laboratory Medicine Angélica Granger P.A.-C. [address] [place] [address] [phone] 08/14/2022 Appointment Laboratory Medicine Angélica Granger P.A.-C. [address] [place] [address] [phone] 08/28/2022 Appointment Laboratory Medicine Angélica Granger P.A.-C. [address] [place] [phone] documented as of this encounter Visit Diagnoses Not on filedocumented in this encounter Care Teams Piano Refinisher Relationship Specialty Start Date End Date Elsewhere, Pcp PCP - General Family Medicine 07/29/17 documented as of this encounter
--- OUTSIDE RECORDS SUMMARY | 2022-05-17 19:02 | XMS_ITS | Encounter Summary ---
:1955 Author Organization [facility] Address [address] [place] [address] Care Team Providers Name Role Phone Elsewhere, Pcp Primary Care Provider Unavailable Reason for Visit Reason Comments Med Management Outpatient (Routine) - Closed Specialty Diagnoses / Procedures Referred By Contact Refer red To Contact Pharmacy Diagnoses Pretransplant Recipient Evaluation Exam Chronic Kidney Disease Stage 4 Glomerular Filtration Rate 15-29 (HCC) Neo Bowman M.D. [facility] [address] [place] [phone] Referral ID Status Reason Start Date Expiration Date Visits Requ ested Visits Authorized [id number] Closed 02/16/2018 02/16/2019 1 1 Encounter Details Date Type Department Care Team Description 03/26/2018 Medication Curt Olivo, Pretra nsplant Recipient Evaluation Exam; Management Center for Neo Millard Chronic Kidney Disease Stage 4 Glomerular Filtration Rate 15-29 ([facility] [place] [facility]) Transplantation and [facility] Clinical Regeneration [address] [place] [address] [place] [phone] [place], [place] [phone] (Work) [phone] Social History Tobacco Use Types Packs/Day Years [...] at Date Recorded Male 05/16/2020 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 The patient uses [facility] pharmacy in [place], [place] for all medication refills. He mentioned if hetravels to [place], he will use a local [facility] there. Does the patient know what medications [...] 4. Current Medication Recommendations Recommended use of LONG TERM-verified rvlw-xqy-mzmlaaw supplements to ensure purity and potency standards. Recommended discontinuation of probiotic in capsule form due to increased risk for infection while on immunosuppressant medications. Recommended Kefir by [employer] instead if needed. 5. Pharmacist Impression All [...] Medicine Angélica Granger P.A.-C. [address] [place] [phone] 05/23/2022 Clinical Admitting/Central Communication Scheduling 05/27/2022 Comprehensive Visit Orthopedic Surgery Markus Sams M.D., Ph.D. [address] [place] [phone] 05/29/2022 Office Visit Otorhinolaryngology Dex Matta APRN, C.N.P., M.S.N. [address] [place] [phone] 05/29/2022 Office Visit Otorhinolaryngology Nadeem Maradiaga, Edmundo, M.S. [address] [place] [phone] 05/31/2022 Appointment Radiology Guilherme Matt, RASTA, Edmundo, M.S. [address] [place] [phone] 06/05/2022 Appointment Laboratory Medicine Angélica Granger P.A.-C. [address] [place] [phone] 06/19/2022 Appointment Laboratory Medicine Angélica Granger P.A.-C. [address] [place] [phone] 07/03/2022 Appointment Laboratory Medicine Angélica Granger P.A.-C. [address] [place] [phone] 07/17/2022 Appointment Laboratory Medicine Angélica Granger P.A.-C. [address] [place] [phone] 07/31/2022 Appointment Laboratory Medicine Angélica Granger P.A.-C. [address] [place] [phone] 08/14/2022 Appointment Laboratory Medicine Angélica Granger P.A.-C. [address] [place] [phone] 08/28/2022 Appointment Laboratory Medicine Angélica Granger P.A.-C. [address] [place] [phone] documented as of this encounter Visit Diagnoses Diagnosis Pretransplant Recipient Evaluation Exam Chronic Kidney Disease Stage 4 Glomerula r Filtration Rate 15-29 (HCC) documented in this encounter Additional Health Concerns Assessment Noted Time PHQ-9 Depression Total Score: 3 03/26/2018 3:02 PM CDT documented as of this encounter Care Teams Emr Analyst Relationship Specialty Start Date End Date Elsewhere, Pcp PCP - General Family Medicine 07/29/17 documented as of this encounter
--- OUTSIDE RECORDS SUMMARY | 2022-05-17 19:02 | XMS_ITS | Encounter Summary ---
:1955 Author Organization [facility] Address [address] [place] [address] Care Team Providers Name Role Phone Elsewhere, Pcp Primary Care Provider Unavailable Encounter Details Date Type Department Care Team Description 04/29/2018 Office Visit Department of Jaxson Churchill Okarche ed Otorhinolaryngology in Edmundo Camejo, Right (Primary Dx) [place], [place] MThomas, M.P.H. 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 ORNE OPERATIONS SUPERINTENDENT documented in this encounter Plan of Treatment Upcoming Encounters Date Type Specialty Care Team Description 05/22/2022 Appointment Laboratory Medicine Angélica Granger P.A.-C. [address] [place] [phone] 05/23/2022 Clinical Admitting/Central Communication Scheduling 05/27/2022 Comprehensive Visit Orthopedic Surgery Markus Sams M.D., Ph.D. [address] [place] [address] [phone] 05/29/2022 Office Visit Otorhinolaryngology Dex Matta APRN, C.N.P., M.S.N. [address] [place] [address] [phone] 05/29/2022 Office Visit Otorhinolaryngology Nadeem Maradiaga, PEdgar.Marie., M.S. [address] [place] [phone] 05/31/2022 Appointment Radiology Guilherme Matt MPAS, Jennifer., M.S. [address] [place] [phone] 06/05/2022 Appointment Laboratory Medicine Angélica Granger P.A.-C. [address] [place] [address] [phone] 06/19/2022 Appointment Laboratory Medicine Angélica Granger P.A.-C. [address] [place] [phone] 07/03/2022 Appointment Laboratory Medicine Angélica Granger P.A.-C. [address] [place] [phone] 07/17/2022 Appointment Laboratory Medicine Angélica Granger P.A.-C. [address] [place] [phone] 07/31/2022 Appointment Laboratory Medicine Angélica Granger P.A.-C. [address] [place] [phone] 08/14/2022 Appointment Laboratory Medicine Angélica Granger P.A.-C. [address] [place] [phone] 08/28/2022 Appointment Laboratory Medicine Angélica Granger P.A.-C. [address] [place] [phone] documented as of this encounter Visit Diagnoses Diagnosis Cerumen Impacted Right - Primary documented in this encounter Care Teams Director On Air Relationship Specialty Start Date End Date Elsewhere, Pcp PCP - General Family Medicine 07/29/17 documented as of this encounter
--- OUTSIDE RECORDS SUMMARY | 2022-05-17 19:02 | XMS_ITS | Encounter Summary ---
:1955 Author Organization [facility] Address [address] [place] [address] Care Team Providers Name Role Phone Elsewhere, Pcp Primary Care Provider Unavailable Reason for Visit Outpatient (Routine) - Closed Specialty Diagnoses / Procedures Referred By Contact Refer red To Contact Neurology Tres Rico M.D. 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 ECT ARCHIVIST documented in this encounter Plan of Treatment Upcoming Encounters Date Type Specialty Care Team Description 05/22/2022 Appointment Laboratory Medicine Angélica Granger P.A.-C. [address] [place] [phone] 05/23/2022 Clinical Admitting/Central Communication Scheduling 05/27/2022 Comprehensive Visit Orthopedic Surgery Markus Sams M.D., Ph.D. [address] [place] [address] [phone] 05/29/2022 Office Visit Otorhinolaryngology Dex Matta APRN, C.N.P., M.S.N. [address] [place] [address] [phone] 05/29/2022 Office Visit Otorhinolaryngology Nadeem Maradiaga, Miri.Marie., M.S. [address] [place] [phone] 05/31/2022 Appointment Radiology Guilherme Matt MPAS, Edmundo, M.S. [address] [place] [phone] 06/05/2022 Appointment Laboratory Medicine Angélica Granger P.A.-C. [address] [place] [phone] 06/19/2022 Appointment Laboratory Medicine Angélica Granger P.A.-C. [address] [place] [phone] 07/03/2022 Appointment Laboratory Medicine Angélica Granger P.A.-C. [address] [place] [phone] 07/17/2022 Appointment Laboratory Medicine Angélica Granger P.A.-C. [address] [place] [phone] 07/31/2022 Appointment Laboratory Medicine Angélica Granger P.A.-C. [address] [place] [phone] 08/14/2022 Appointment Laboratory Medicine Angélica Granger P.A.-C. [address] [place] [phone] 08/28/2022 Appointment Laboratory Medicine Angélica Granger P.A.-C. [address] [place] [phone] documented as of this encounter Visit Diagnoses Diagnosis Complaint Memory - Primary documented in this encounter Care Teams Centerless Grinder Tender Relationship Specialty Start Date End Date Elsewhere, Pcp PCP - General Family Medicine 07/29/17 documented as of this encounter
--- OUTSIDE RECORDS SUMMARY | 2022-05-17 19:02 | XMS_ITS | Encounter Summary ---
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 [address] [place] [phone] 05/23/2022 Clinical Admitting/Central Communication Scheduling 05/27/2022 Comprehensive Visit Orthopedic Surgery Markus Sams M.D., Ph.D. [address] [place] [phone] 05/29/2022 Office Visit Otorhinolaryngology Dex Matta APRN, C.N.P., M.S.N. [address] [place] [address] [phone] 05/29/2022 Office Visit Otorhinolaryngology Nadeem Maradiaga, P.Murtaza.-Arley., M.S. [address] [place] [phone] 05/31/2022 Appointment Radiology Guilherme Matt MPAS, Jennifer., M.S. [address] [place] [phone] 06/05/2022 Appointment Laboratory Medicine Angélica Granger P.A.-C. [address] [place] [phone] 06/19/2022 Appointment Laboratory Medicine GunAngélica wilcox P.A.-C. [address] [place] [phone] 07/03/2022 Appointment Laboratory Medicine Angélica Granger P.A.-C. [address] [place] [phone] 07/17/2022 Appointment Laboratory Medicine Angélica Granger P.A.-C. [address] [place] [phone] 07/31/2022 Appointment Laboratory Medicine Angélica Granger P.A.-C. [address] [place] [phone] 08/14/2022 Appointment Laboratory Medicine Angélica Granger P.A.-C. [address] [place] [phone] 08/28/2022 Appointment Laboratory Medicine Angélica Granger P.A.-C. [address] [place] [phone] documented as of this encounter Visit Diagnoses Not on filedocumented in this encounter Additional Health Concerns Infection Onset Date Last Indicated Resolved Time COVID19 Pending 12/13/2019 12/13/2019 12/14/2019 11:03 AM CDT COVID19 Pending 01/26/2020 01/27/2020 01/28/2020 12:12 AM CDT documented as of this encounter Care Teams Administrative Assistant Office Manager Relationship Specialty Start Date End Date Elsewhere, Pcp PCP - General Family Medicine 07/29/17 [facility] - Laboratory Medicine 04/12/[address] [address] documented as of this encounter
--- OUTSIDE RECORDS SUMMARY | 2022-05-17 19:02 | XMS_ITS | Encounter Summary ---
:1955 Author Organization [facility] Address [address] [place] [address] Care Team Providers Name Role Phone Elsewhere, Pcp Primary Care Provider Unavailable Encounter Details Date Type Department Care Team Description 03/25/2018 Orders Only Division of Nephrology Gracie, Audi Guillaume Impacted and Hypertension in M.D. 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 [address] [place] [phone] 05/23/2022 Clinical Admitting/Central Communication Scheduling 05/27/2022 Comprehensive Visit Orthopedic Surgery Markus Sams M.D., Ph.D. [address] [place] [address] [phone] 05/29/2022 Office Visit Otorhinolaryngology Dex Matta APRN, C.N.P., M.S.N. [address] [place] [address] [phone] 05/29/2022 Office Visit Otorhinolaryngology Nadeem Maradiaga, P.A.-C., M.S. [address] [place] [address] [phone] 05/31/2022 Appointment Radiology Guilherme Matt MPAS, P.Murtaza.-Arley., M.S. [address] [place] [phone] 06/05/2022 Appointment Laboratory Medicine Angélica Granger P.A.-C. [address] [place] [phone] 06/19/2022 Appointment Laboratory Medicine Angélica Granger P.A.-C. [address] [place] [phone] 07/03/2022 Appointment Laboratory Medicine Angélica Granger P.A.-C. [address] [place] [phone] 07/17/2022 Appointment Laboratory Medicine Angélica Granger P.A.-C. [address] [place] [address] [phone] 07/31/2022 Appointment Laboratory Medicine Angélica Granger P.A.-C. [address] [place] [phone] 08/14/2022 Appointment Laboratory Medicine Angélica Granger P.A.-C. [address] [place] [phone] 08/28/2022 Appointment Laboratory Medicine Angélica Granger P.A.-C. [address] [place] [phone] documented as of this encounter Visit Diagnoses Diagnosis Cerumen Impacted Bilateral - Primary documented in this encounter Additional Health Concerns Assessment Noted Time PHQ-9 Depression Total Score: 5 03/24/2018 9:15 PM CDT documented as of this encounter Care Teams Court Bailiff Relationship Specialty Start Date End Date Elsewhere, Pcp PCP - General Family Medicine 07/29/17 documented as of this encounter
--- OUTSIDE RECORDS SUMMARY | 2022-05-17 19:02 | XMS_ITS | Encounter Summary ---
:1955 Author Organization [facility] Address [address] [place] [address] Care Team Providers Name Role Phone Elsewhere, Pcp Primary Care Provider Unavailable Reason for Visit Appointment Request (Routine) - Closed Specialty Diagnoses / Procedures Referred By Contact Refer red To Contact Dermatology Referral ID Status Reason Start Date Expiration Date Visits Requ ested Visits Authorized [id number] Closed 04/23/2018 04/23/2019 1 Encounter Details Date Type Department Care Team Description 04/29/2018 Office Visit Department of Kandace James, Keratosis Actinic (Primary Dx); Dermatology in [facility] 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 - 04/29/2018 11:00 AM CST REFERRED BY No ref. 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 Suzanne Contreras ([id number]) Patient seen and discussed with supervising data power consultant, Dr. Suzanne oCntreras, who evaluated the patient and concurs with [...] patient/guardian of patient expressed understanding of thecontent. TECHNICIAN documented in this encounter Plan of Treatment Upcoming Encounters Date Type Specialty Care Team Description 05/22/2022 Appointment Laboratory Medicine Angélica Granger P.A.-C. [address] [place] [phone] 05/23/2022 Clinical Admitting/Central Communication Scheduling 05/27/2022 Comprehensive Visit Orthopedic Surgery Markus Sams M.D., Ph.D. [address] [place] [phone] 05/29/2022 Office Visit Otorhinolaryngology Dex Matta APRN, C.N.P., M.S.N. [address] [place] [address] [phone] 05/29/2022 Office Visit Otorhinolaryngology Nadeem Maradiaga, Miri.-Arley., M.S. [address] [place] [phone] 05/31/2022 Appointment Radiology Guilherme Matt, RASTA, Jennifer., M.S. [address] [place] [phone] 06/05/2022 Appointment Laboratory Medicine Angélica Granger P.A.-C. [address] [place] [address] [phone] 06/19/2022 Appointment Laboratory Medicine Angélica Granger P.A.-C. [address] [place] [phone] 07/03/2022 Appointment Laboratory Medicine Angélica Granger P.A.-C. [address] [place] [phone] 07/17/2022 Appointment Laboratory Medicine Angélica Granger P.A.-C. [address] [place] [phone] 07/31/2022 Appointment Laboratory Medicine Angélica Granger P.A.-C. [address] [place] [phone] 08/14/2022 Appointment Laboratory Medicine Angélica Granger P.A.-C. [address] [place] [phone] 08/28/2022 Appointment Laboratory Medicine Angélica Granger P.A.-C. 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
--- OUTSIDE RECORDS SUMMARY | 2022-05-17 19:02 | XMS_ITS | Encounter Summary ---
:1955 Author Organization [facility] Address [address] [place] [address] Care Team Providers Name Role Phone Elsewhere, Pcp Primary Care Provider Unavailable Reason for Visit Transplant (Routine) - Closed Specialty Diagnoses / Procedures Referred By Contact Refer red To Contact Transplant Surgery / Diagnoses Chronic Kidney Disease Stage 4 Glomerular Filtration Rate 15-29 (HCC) [facility] M.DD[facility]etri[facility] [address] [place] [phone] Referral ID Status Reason Start Date Expiration Date Visits Requ ested Visits Authorized [id number] Closed 02/23/2018 02/23/2019 1 1 Encounter Details Date Type Department Care Team Description 03/27/2018 Comprehensive Visit Neo Richmond M.D. [address] [place] [phone] Pretransplant Recipient Evaluation Exam (Primary Dx); Codie Stevenson M.D., Ph.D. 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 Singh's medical records at [facility] and interviewed him individually. Mr. 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 Marital History Number of Marriages: never Children:NO Spiritual Life Source of support: YES Attendance in mag community: YES Support Proposal Editor from friends: YES OBJECTIVE MENTAL STATUS EXAM [...] Appointment Laboratory Medicine Angélica Granger P.A.-C. 200 [place] [phone] 05/23/2022 Clinical Admitting/Central Communication Scheduling 05/27/2022 Comprehensive Visit Orthopedic Surgery Markus Sams M.D., Ph.D. [address] [place] [phone] 05/29/2022 Office Visit Otorhinolaryngology Dex Matta APRN, C.N.P., M.S.N. [address] [place] [phone] 05/29/2022 Office Visit Otorhinolaryngology Nadeem Maradiaga, Edmundo, M.S. [address] [place] [phone] 05/31/2022 Appointment Radiology Guilherme Matt, RASTA, Edmundo, M.S. [address] [place] [phone] 06/05/2022 Appointment Laboratory Medicine Angélica Granger P.A.-C. [address] [place] [phone] 06/19/2022 Appointment Laboratory Medicine Angélica Granger P.A.-C. [address] [place] [phone] 07/03/2022 Appointment Laboratory Medicine Angélica Granger P.A.-C. [address] [place] [phone] 07/17/2022 Appointment Laboratory Medicine Angélica Granger P.A.-C. [address] [place] [phone] 07/31/2022 Appointment Laboratory Medicine Angélica Granger P.A.-C. [address] [place] [phone] 08/14/2022 Appointment Laboratory Medicine Angélica Granger P.A.-C. [address] [place] [phone] 08/28/2022 Appointment Laboratory Medicine Angélica Granger P.A.-C. [address] [place] [phone] documented as of this encounter Results Lamotrigine Level (04/28/2018 7:11 AM PHOTONICS ENGINEER) athologist Signature Lamotrigine, S 4.4 2.5 - 15.0 04/28/2018 [facility] mcg/mL 3:43 PM PHOTONICS ENGINEER [facility] Comment: ----ADDITIONAL INFORMATION---- This test was [...] (Blood, 04/28/2018 7:11 AM 04/28/20 18 Venous) PHOTONICS ENGINEER 10:21 AM PHOTONICS ENGINEER Codie Lam M.D., Ph.D. LAB BLOOD NON ADD-ON Performing Organization Address City/State/ZIP Code Phon e Number [facility] [address] [place], [place] [facility] documented in this encounter Visit Diagnoses Diagnosis Pretransplant Recipient Evaluation Exam - Primary Chronic Kidney Disease Stage 4 Glomerula r Filtration Rate 15-29 (HCC) Medication Therapy Senior Developer Not Anticoa gulant Bipolar I Disorder (HCC) documented in this encounter Care Teams Item Repair Manager Relationship Specialty Start Date End Date Elsewhere, Pcp PCP - General Family Medicine 07/29/17 documented as of this encounter
--- OUTSIDE RECORDS SUMMARY | 2022-05-17 19:02 | XMS_ITS | Encounter Summary ---
:1955 Author Organization [facility] Address [address] [place] [address] Care Team Providers Name Role Phone Elsewhere, Pcp Primary Care Provider Unavailable Reason for Visit Reason Comments Med Refill Encounter Details Date Type Department Care Team Description 05/05/2018 Refill Division of Nephrology and Herrm Mercedez casanova M.D. Med Refill Hypertension in [place], 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 - 05/06/2018 4:29 PM CST Prescription forwarded to provider for approval. Outside RN protocol due to no refills last prescription. HT LINE MECHANIC documented in this encounter Plan of Treatment Upcoming Encounters Date Type Specialty Care Team Description 05/22/2022 Appointment Laboratory Medicine Angélica Granger P.A.-C. [address] [place] [phone] 05/23/2022 Clinical Admitting/Central Communication Scheduling 05/27/2022 Comprehensive Visit Orthopedic Surgery Markus Sams M.D., Ph.D. [address] [place] [phone] 05/29/2022 Office Visit Otorhinolaryngology Dex Matta APRN, C.N.P., M.S.N. [address] [place] [phone] 05/29/2022 Office Visit Otorhinolaryngology Nadeem Maradiaga P.A.-Arley., M.S. [address] [place] [phone] 05/31/2022 Appointment Radiology Guilherme Matt MPAS, P.A.-C., M.S. [address] [place] [phone] 06/05/2022 Appointment Laboratory Medicine Angélica Granger P.A.-C. [address] [place] [phone] 06/19/2022 Appointment Laboratory Medicine Angélica Granger P.A.-C. [address] [place] [phone] 07/03/2022 Appointment Laboratory Medicine Angélica Granger P.A.-C. [address] [place] [phone] 07/17/2022 Appointment Laboratory Medicine Angélica Granger P.A.-C. [address] [place] [phone] 07/31/2022 Appointment Laboratory Medicine Angélica Granger P.A.-C. [address] [place] [phone] 08/14/2022 Appointment Laboratory Medicine Angélica Granger P.A.-C. [address] [place] [phone] 08/28/2022 Appointment Laboratory Medicine Angélica Granger P.A.-C. [address] [place] [phone] documented as of this encounter Visit Diagnoses Not on filedocumented in this encounter Care Teams Chemistry Manager Relationship Specialty Start Date End Date Elsewhere, Pcp PCP - General Family Medicine 07/29/17 documented as of this encounter
--- OUTSIDE RECORDS SUMMARY | 2022-05-17 19:02 | XMS_ITS | Encounter Summary ---
:1955 Author Organization [facility] Address [address] [place] [address] Care Team Providers Name Role Phone Elsewhere, Pcp Primary Care Provider Unavailable Encounter Details Date Type Department Care Team Description 03/26/2018 Hospital Department of Neo Bowman Encounter Fo r Preprocedural Cardiovascular Examination ; Encounter Cardiovascular R, M.D. 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 [address] [place] [address] 05/23/2022 Clinical Admitting/Central Communication Scheduling 05/27/2022 Comprehensive Visit Orthopedic Surgery Markus Sams M.D., Ph.D. [address] [place] [phone] 05/29/2022 Office Visit Otorhinolaryngology eDx Matta APRN, C.N.P., M.S.N. [address] [place] [phone] 05/29/2022 Office Visit Otorhinolaryngology Nadeem Maradiaga P.A.-C., M.S. [address] [place] [phone] 05/31/2022 Appointment Radiology Guilherme Matt MPAS, Edmundo, M.S. [address] [place] [phone] 06/05/2022 Appointment Laboratory Medicine Angélica Granger P.A.-C. [address] [place] [phone] 06/19/2022 Appointment Laboratory Medicine Angélica Granger P.A.-C. [address] [place] [phone] 07/03/2022 Appointment Laboratory Medicine Angélica Granger P.A.-C. [address] [place] [phone] 07/17/2022 Appointment Laboratory Medicine Angélica Granger P.A.-C. [address] [place] [phone] 07/31/2022 Appointment Laboratory Medicine Angélica Granger P.A.-C. [address] [place] [address] 08/14/2022 Appointment Laboratory Medicine Angélica Granger P.A.-C. [address] [place] [address] 08/28/2022 Appointment Laboratory Medicine Angélica Granger P.A.-C. [address] [place] [address] documented as of this encounter Procedures Procedure [...] COLOR AND DOPPLER (03/26/2018 8:54 AM CDT) [facility] gist Method Time Signature Ejection Fraction 61 [...] documented as of this encounter Care Teams Crm Specialist Relationship Specialty Start Date End Date Elsewhere, Pcp PCP - General Family Medicine 07/29/17 documented as of this encounter
--- OUTSIDE RECORDS SUMMARY | 2022-05-17 19:02 | XMS_ITS | Encounter Summary ---
:1955 Author Organization [facility] Address [address] [place] [address] Care Team Providers Name Role Phone Elsewhere, Pcp Primary Care Provider Unavailable Reason for Visit Transplant (Routine) - Closed Specialty Diagnoses / Procedures Referred By Contact Refer red To Contact Transplant Surgery / Diagnoses Pretransplant Recipient Evaluation Exam Chronic Kidney Disease Stage 4 Glomerular Filtration Rate 15-29 (HCC[facility] [address] [place] [phone] Referral ID Status Reason Start Date Expiration Date Visits Requ ested Visits Authorized [id number] Closed 02/16/2018 02/16/2019 1 1 Encounter Details Date Type Department Care Team Description 03/27/2018 Nurse Only Curt aguirre [facility] Neo henson M.D. [address] [place] [phone] for Transplantation and Patricia Pinto R.N., C.C.T.C. [address] [place] [phone] Clinical Regeneration in [place], [place] [address] [place] [phone] Social History Tobacco Use Types Packs/Day [...] 12/15/2021 organizations such as moravian groups, unions, [employer]ize [employer] or athletic groups, or school groups? 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 - 03/27/2018 2:00 PM CDT Met with Bruce Singh for evaluation and education as a potential kidney recipient. Patient did attend the kidney/pancreas education class. Informed consent to continue with the evaluation for kidney transplant evaluation was obtained. Mr. Bruce Singh is a 62 y.o. year-old male from [place], [place] with end-stage renal disease secondary to [...] regarding some of the side-effects associated with snf immunosuppression and indicated that some patients would [...] Laboratory Medicine Angélica Granger P.A.-C. [address] [place] [phone] 05/23/2022 Clinical Admitting/Central Communication Scheduling 05/27/2022 Comprehensive Visit Orthopedic Surgery Markus Sams M.D., Ph.D. [address] [place] [phone] 05/29/2022 Office Visit Otorhinolaryngology Dex Matta APRN, C.N.P., M.S.N. [address] [place] [phone] 05/29/2022 Office Visit Otorhinolaryngology Nadeem Maradiaga P.A.-C., M.S. [address] [place] [phone] 05/31/2022 Appointment Radiology Guilherme Matt MPAS, P.A.-C., M.S. [address] [place] [phone] 06/05/2022 Appointment Laboratory Medicine Angélica Granger P.A.-C. [address] [place] [phone] 06/19/2022 Appointment Laboratory Medicine Angélica Granger P.A.-C. [address] [place] [phone] 07/03/2022 Appointment Laboratory Medicine Angélica Granger P.A.-C. [address] [place] [phone] 07/17/2022 Appointment Laboratory Medicine Angélica Granger P.A.-C. [address] [place] [phone] 07/31/2022 Appointment Laboratory Medicine Angélica Granger P.A.-C. [address] [place] [phone] 08/14/2022 Appointment Laboratory Medicine Angélica Granger P.A.-C. [address] [place] [phone] 08/28/2022 Appointment Laboratory Medicine Angélica Granger P.A.-C. [address] [place] [phone] documented as of this encounter Visit Diagnoses Diagnosis Pretransplant Recipient Evaluation Exam Chronic Kidney Disease Stage 4 Glomerula r Filtration Rate 15-29 (HCC) documented in this encounter Care Teams Submersible Pilot Relationship Specialty Start Date End Date Elsewhere, Pcp PCP - General Family Medicine 07/29/17 documented as of this encounter
--- OUTSIDE RECORDS SUMMARY | 2022-05-17 19:02 | XMS_ITS | Encounter Summary ---
:1955 Author Organization [facility] Address [address] [place] [address] Care Team Providers Name Role Phone Elsewhere, Pcp Primary Care Provider Unavailable Reason for Visit Reason Comments Transplant Recipient Evaluation End of Evaluation Outpatient (Routine) - Closed Specialty Diagnoses / Procedures Referred By Contact Refer red To Contact Transplant [facility]st [facility] [address] [place] [phone] Referral ID Status Reason Start Date Expiration Date Visits Requ ested Visits Authorized [id number] Closed 02/16/2018 02/16/2019 1 1 Encounter Details Date Type Department Care Team Description 03/27/2018 Office Visit Neo Richmond [facility] ransplant Recipient Evaluation Exam; Center for R, M.D. Chronic Kidney Disease Stage 4 Glomerula r Filtration Rate 15-29 (HCC) Transplantation and [address] [place] [address] in [place], [place] [address] [place] [address] [place] [address] (Work) [phone] Social History Tobacco Use Types Packs/Day Years [...] 12/15/2021 organizations such as pentecostalism groups, unions, fraModlar or athletic groups, or school groups? 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 [address] [place] [phone] 05/23/2022 Clinical Admitting/Central Communication Scheduling 05/27/2022 Comprehensive Visit Orthopedic Surgery Markus Sams M.D., Ph.D. [address] [place] [phone] 05/29/2022 Office Visit Otorhinolaryngology Dex Matta APRN, C.N.P., M.S.N. [address] [place] [phone] 05/29/2022 Office Visit Otorhinolaryngology Nadeem Maradiaga, P.A.-C., M.S. [address] [place] [address] [phone] 05/31/2022 Appointment Radiology Guilherme Matt MPAS, P.Murtaza.Marie., M.S. [address] [place] [phone] 06/05/2022 Appointment Laboratory Medicine Angélica Granger P.A.-C. [address] [place] [address] [phone] 06/19/2022 Appointment Laboratory Medicine Angélica Granger P.A.-C. [address] [place] [phone] 07/03/2022 Appointment Laboratory Medicine Angélica Granger P.A.-C. [address] [place] [phone] 07/17/2022 Appointment Laboratory Medicine Angélica Granger P.A.-C. [address] [place] [address] [phone] 07/31/2022 Appointment Laboratory Medicine Angélica Granger P.A.-C. [address] [place] [phone] 08/14/2022 Appointment Laboratory Medicine Angélica Granger P.A.-C. [address] [place] [phone] 08/28/2022 Appointment Laboratory Angélica Royal P.A.-C. [address] [place] [phone] documented as of this encounter Visit Diagnoses Diagnosis Pretransplant Recipient Evaluation Exam Chronic Kidney Disease Stage 4 Glomerula r Filtration Rate 15-29 (HCC) documented in this encounter Care Teams Electric Motors Salesperson Relationship Specialty Start Date End Date Elsewhere, Pcp PCP - General Family Medicine 07/29/17 documented as of this encounter
--- OUTSIDE RECORDS SUMMARY | 2022-05-17 19:02 | XMS_ITS | Encounter Summary ---
:1955 Author Organization [facility] Address [address] [place] [address] Care Team Providers Name Role Phone Elsewhere, Pcp Primary Care Provider Unavailable Encounter Details Date Type Department Care Team Description 03/25/2018 Hospital Encounter Department of Neo Bowman For Follow Up Examination After Completed Treatment For Conditions Other Than Malignant Neoplasm ; Radiology, Kd Millard M.D. 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 [address] [place] [phone] 05/23/2022 Clinical Admitting/Central Communication Scheduling 05/27/2022 Comprehensive Visit Orthopedic Surgery Markus Sams M.D., Ph.D. [address] [place] [address] [phone] 05/29/2022 Office Visit Otorhinolaryngology Dex Matta APRN, C.N.P., M.S.N. [address] [place] [address] [phone] 05/29/2022 Office Visit Otorhinolaryngology Nadeem Maradiaga, P.A.-C., M.S. [address] [place] [phone] 05/31/2022 Appointment Radiology Guilherme Matt, RASTA, P.Murtaza.Marie., M.S. [address] [place] [phone] 06/05/2022 Appointment Laboratory Medicine Angélica Granger P.A.-C. [address] [place] [address] [phone] 06/19/2022 Appointment Laboratory Medicine Angélica Granger P.A.-C. [address] [place] [phone] 07/03/2022 Appointment Laboratory Medicine Angélica Granger P.A.-C. [address] [place] [phone] 07/17/2022 Appointment Laboratory Medicine Angélica Granger P.A.-C. [address] [place] [phone] 07/31/2022 Appointment Laboratory Medicine Angélica Granger P.A.-C. [address] [place] [phone] 08/14/2022 Appointment Laboratory Medicine Angélica Granger P.A.-C. [address] [place] [phone] 08/28/2022 Appointment Laboratory Medicine Angélica Granger P.A.-C. [address] [place] [phone] documented as of this encounter Procedures Procedure [...] but otherwise normal pre-kidney transplant evaluation. Neo Bowman M.D. IMG US PROCEDURES documented in this encounter [...]
--- OUTSIDE RECORDS SUMMARY | 2022-05-17 19:02 | XMS_ITS | Encounter Summary ---
:1955 Author Organization [facility] Address [address] [place] [address] Care Team Providers Name Role Phone Elsewhere, Pcp Primary Care Provider Unavailable Reason for Visit Reason Comments Med Refill Encounter Details Date Type Department Care Team Description 05/05/2018 Refill Division of Gastroenterology in Jaxson Reyes M.D. 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 [address] [place] [phone] 05/23/2022 Clinical Admitting/Central Communication Scheduling 05/27/2022 Comprehensive Visit Orthopedic Surgery Markus Sams M.D., Ph.D. [address] [place] [address] [phone] 05/29/2022 Office Visit Otorhinolaryngology Dex Matta APRN, C.N.P., M.S.N. [address] [place] [address] [phone] 05/29/2022 Office Visit Otorhinolaryngology Nadeem Maradiaga, P.Murtaza.-Arley., M.S. [address] [place] [address] [phone] 05/31/2022 Appointment Radiology Guilherme Matt MPAS, P.Murtaza.Marie., M.S. [address] [place] [phone] 06/05/2022 Appointment Laboratory Medicine Angélica Granger P.A.-C. [address] [place] [phone] 06/19/2022 Appointment Laboratory Medicine Angélica Granger P.A.-C. [address] [place] [address] [phone] 07/03/2022 Appointment Laboratory Medicine Angélica Granger P.A.-C. [address] [place] [phone] 07/17/2022 Appointment Laboratory Medicine Angélica Granger P.A.-C. [address] [place] [address] [phone] 07/31/2022 Appointment Laboratory Medicine Angélica Granger P.A.-C. [address] [place] [address] [phone] 08/14/2022 Appointment Laboratory Medicine Angélica Granger P.A.-C. [address] [place] [address] [phone] 08/28/2022 Appointment Laboratory Medicine Angélica Granger P.A.-C. [address] [place] [phone] documented as of this encounter Visit Diagnoses Not on filedocumented in this encounter Care Teams Engineered Wood Designer Relationship Specialty Start Date End Date Elsewhere, Pcp PCP - General Family Medicine 07/29/17 documented as of this encounter
--- OUTSIDE RECORDS SUMMARY | 2022-05-17 19:02 | XMS_ITS | Encounter Summary ---
:1955 Author Organization [facility] Address [address] [place] [address] Care Team Providers Name Role Phone Elsewhere, Pcp Primary Care Provider Unavailable Reason for Visit Transplant (Routine) - Closed Specialty Diagnoses / Procedures Referred By Contact Refer red To Contact Transplant Surgery / Diagnoses Pretransplant Recipient Evaluation Exam Chronic Kidney Disease Stage 4 Glomerular Filtration Rate 15-29 (HCC) [facility] M.[facility] 200 [place] [phone] Referral ID Status Reason Start Date Expiration Date Visits Requ ested Visits Authorized [id number] Closed 02/16/2018 02/16/2019 1 1 Encounter Details Date Type Department Care Team Description 03/27/2018 Comprehensive Visit Dario Garay M.D., Ph.D. [address] [place] [address] [phone] Pretransplant Recipient Evaluation Exam; Milad Richmond M.D. 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 I spent 15 minutes with the patient, of which greater than 50% of the time was spent in patient education, counseling, and coordination of care as described above. documented in this encounter Plan of Treatment Upcoming Encounters Date Type Specialty Care Team Description 05/22/2022 Appointment Laboratory Medicine Angélica Granger P.A.-C. [address] [place] [phone] 05/23/2022 Clinical Admitting/Central Communication Scheduling 05/27/2022 Comprehensive Visit Orthopedic Surgery Markus Sams M.D., Ph.D. [address] [place] [phone] 05/29/2022 Office Visit Otorhinolaryngology Dex Matta APRN, C.N.P., M.S.N. [address] [place] [phone] 05/29/2022 Office Visit Otorhinolaryngology Nadeem Maradiaga, PEdgar.Marie., M.S. [address] [place] [phone] 05/31/2022 Appointment Radiology Guilherme Matt MPAS, Jennifer., M.S. [address] [place] [phone] 06/05/2022 Appointment Laboratory Medicine Angélica Granger P.A.-C. [address] [place] [phone] 06/19/2022 Appointment Laboratory Medicine Angélica Granger P.A.-C. [address] [place] [phone] 07/03/2022 Appointment Laboratory Medicine Angélica Granger P.A.-C. [address] [place] [phone] 07/17/2022 Appointment Laboratory Medicine Angélica Granger P.A.-C. [address] [place] [phone] 07/31/2022 Appointment Laboratory Medicine Angélica Granger P.A.-C. [address] [place] [phone] 08/14/2022 Appointment Laboratory Medicine Angélica Granger P.A.-C. [address] [place] [phone] 08/28/2022 Appointment Laboratory Angélica Royal P.A.-C. [address] [place] [phone] documented as of this encounter Visit Diagnoses Diagnosis Pretransplant Recipient Evaluation Exam Chronic Kidney Disease Stage 4 Glomerula r Filtration Rate 15-29 (HCC) documented in this encounter Care Teams Director Medical Surgical Relationship Specialty Start Date End Date Elsewhere, Pcp PCP - General Family Medicine 07/29/17 documented as of this encounter
--- OUTSIDE RECORDS SUMMARY | 2022-05-17 19:02 | XMS_ITS | Encounter Summary ---
:1955 Author Organization [facility] Address [address] [place] [address] Care Team Providers Name Role Phone Elsewhere, Pcp Primary Care Provider Unavailable Encounter Details Date Type Department Care Team Description 03/25/2018 Clinical Communication [facility] for M, C.Ph.T. 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 - 03/25/2018 9:31 AM CDT Recipient Pre-Transplant Review Document: Organ: Kidney __x__ Liver ____ Heart ____ Lung ____ Pancreas ____ BMT ____ Insurance Carrier: Medicare A & B 3C, [employer] [address] Demographic Information: _x___ Confirmed information is [...] coordination of benefits: deductible, co-insurance, co-pay, or [id number] maximum. __x__ Patient understands that this is [...] current coverage and to contact the appropriate libertarian with anticipated changes. Estimate of Services: _x__ Confirmed understanding of potential financial responsibilities and transplant anticipated expenses. __x__ Transplant care and post-transplant medications are life-long (general information; patient can obtain list of immunosuppressants (Medications) from the nurse coordinator. __x__ Discussed out of pocket expenses for follow-up care, including testing, routine care, and/or complications from surgery. __x__ Handed patient Financial Assistance Policy. (PC4214-44) PATIENT EDUCATION Education Material: __x__ Provided patient with an educational guide (Planning for Your Transplant: A Financial Guide [id number]) to assist in outlining financial responsibilities related [...] education provided. _x___ Advised recipient to notify [facility] with any insurance updates or changes; failure to do so may impede transplant eligibility. __x__ Discussed financial concerns related to ability to pay for services and post-transplant care. Including, Financial Assistance policy if financial hardship was identified. _x___ Provided Transplant Financial business card with our contact phone number of [phone] if patient were to have additional questions. Patient had no concerns documented in this encounter Plan of Treatment Upcoming Encounters Date Type Specialty Care Team Description 05/22/2022 Appointment Laboratory Medicine Angélica Granger P.A.-C. [address] [place] [phone] 05/23/2022 Clinical Admitting/Central Communication Scheduling 05/27/2022 Comprehensive Visit Orthopedic Surgery Markus Sams M.D., Ph.D. [address] [place] [phone] 05/29/2022 Office Visit Otorhinolaryngology Dex Matta APRN, C.N.P., M.S.N. [address] [place] [address] [phone] 05/29/2022 Office Visit Otorhinolaryngology Nadeem Maradiaga, Jennifer., M.S. [address] [place] [address] [phone] 05/31/2022 Appointment Radiology Guilherme Matt MPAS, PMaryanne., M.S. [address] [place] [phone] 06/05/2022 Appointment Laboratory Medicine Angélica Granger P.A.-C. [address] [place] [phone] 06/19/2022 Appointment Laboratory Medicine Angélica Granger P.A.-C. [address] [place] [address] [phone] 07/03/2022 Appointment Laboratory Medicine Angélica Granger P.A.-C. [address] [place] [phone] 07/17/2022 Appointment Laboratory Medicine Angélica Granger P.A.-C. [address] [place] [phone] 07/31/2022 Appointment Laboratory Medicine Angélica Granger P.A.-C. [address] [place] [phone] 08/14/2022 Appointment Laboratory Medicine Angélica Granger P.A.-C. [address] [place] [phone] 08/28/2022 Appointment Laboratory Medicine Angélica Granger P.A.-C. [address] [place] [phone] documented as of this encounter Visit Diagnoses Not on filedocumented in this encounter Additional Health Concerns Assessment Noted Time PHQ-9 Depression Total Score: 5 03/24/2018 9:15 PM CDT documented as of this encounter Care Teams Microsoft Office Instructor Relationship Specialty Start Date End Date Elsewhere, Pcp PCP - General Family Medicine 07/29/17 documented as of this encounter
--- OUTSIDE RECORDS SUMMARY | 2022-05-17 19:02 | XMS_ITS | Encounter Summary ---
:1955 Author Organization [facility] Address [address] [place] [id number] Care Team Providers Name Role Phone Elsewhere, Pcp Primary Care Provider Unavailable Reason for Visit Transplant (Routine) - Closed Specialty Diagnoses / Procedures Referred By Contact Refer red To Contact Transplant Surgery / Diagnoses Pretransplant Recipient Evaluation Exam Chronic Kidney Disease Stage 4 Glomerular Filtration Rate 15-29 (HCC) [facility] M.DDemetrius [address] [place] [phone] Referral ID Status Reason Start Date Expiration Date Visits Requ ested Visits Authorized [id number] Closed 02/16/2018 02/16/2019 1 1 Encounter Details Date Type Department Care Team Description 03/26/2018 Comprehensive Visit Neo Richmond M.D. [address] [place] [address] [phone] Pretransplant Recipient Evaluation Exam; Milka for Petra Calero, ROSARIO, LD [address] [place] [address] [phone] Chronic Kidney Disease Stage 4 Glomerula r Filtration Rate 15- 29 (HCC) Transplantation and Clinical Regeneration in [place], [place] [address] [place] [phone] Social History Tobacco Use Types Packs/Day Years [...] 12/15/2021 organizations such as [employer]ar[employer] groups, unions, [employer]chant[employer] or athletic groups, or school groups? 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 [address] [place] [phone] 05/23/2022 Clinical Admitting/Central Communication Scheduling 05/27/2022 Comprehensive Visit Orthopedic Surgery Markus Sams M.D., Ph.D. [address] [place] [phone] 05/29/2022 Office Visit Otorhinolaryngology Dex Matta APRN C.N.P., M.S.N. [address] [place] [phone] 05/29/2022 Office Visit Otorhinolaryngology Nadeem Maradiaga, Jennifer., M.S. [address] [place] [phone] 05/31/2022 Appointment Radiology Guilherme Matt, Edmundo MAGDALENO, M.S. [address] [place] [phone] 06/05/2022 Appointment Laboratory Medicine Angélica Granger P.A.-C. [address] [place] [phone] 06/19/2022 Appointment Laboratory Medicine Angélica Granger P.A.-C. [address] [place] [phone] 07/03/2022 Appointment Laboratory Medicine Angélica Granger P.A.-C. [address] [place] [phone] 07/17/2022 Appointment Laboratory Medicine Angélica Granger P.A.-C. [address] [place] [phone] 07/31/2022 Appointment Laboratory Medicine Angélica Granger P.A.-C. [address] [place] [phone] 08/14/2022 Appointment Laboratory Medicine Angélica Granger P.A.-C. [address] [place] [phone] 08/28/2022 Appointment Laboratory Medicine Angélica Granger P.A.-C. [address] [place] [phone] documented as of this encounter Visit Diagnoses Diagnosis Pretransplant Recipient Evaluation Exam Chronic Kidney Disease Stage 4 Glomerula r Filtration Rate 15-29 (HCC) documented in this encounter Additional Health Concerns Assessment Noted Time PHQ-9 Depression Total Score: 3 03/26/2018 3:02 PM CDT documented as of this encounter Care Teams Occupational Therapy Assistant Relationship Specialty Start Date End Date Elsewhere, Pcp PCP - General Family Medicine 07/29/17 documented as of this encounter
--- OUTSIDE RECORDS SUMMARY | 2022-05-17 19:03 | XMS_ITS | Encounter Summary ---
:1955 Author Organization [facility] Address [address] [place] [address] Care Team Providers Name Role Phone Elsewhere, Pcp Primary Care Provider Unavailable Reason for Referral Outpatient (Routine) - Closed Specialty Diagnoses / Procedures Referred By Contact Refer red To Contact Transplant Diagnoses Pretransplant Recipient Evaluation Exam Chronic Kidney Disease Stage 4 Glomerular Filtration Rate 15-29 (HCC) Ting Mead M.D. [facility] [address] [place] [phone] Referral ID Status Reason Start Date Expiration Date Visits Requ ested Visits Authorized [id number] Closed 02/16/2018 02/16/2019 1 1 Transplant (Routine) - Closed Specialty Diagnoses / Procedures Referred By Contact Refer red To Contact Transplant Surgery / Diagnoses Pretransplant Recipient Evaluation Exam Chronic Kidney Disease Stage 4 Glomerular Filtration Rate 15-29 (HCC) Ting Mead [facility] Transplant M.D. [address] [place] [phone] Referral ID Status Reason Start Date Expiration Date Visits Requ ested Visits Authorized [id number] Closed 02/16/2018 02/16/2019 1 1 Transplant (Routine) - Closed Specialty Diagnoses / Procedures Referred By Contact Refer red To Contact Transplant Surgery / Diagnoses Pretransplant Recipient Evaluation Exam Chronic Kidney Disease Stage 4 Glomerular Filtration Rate 15-29 (HCC) Ting Mead [facility] Transplant [place] [address] [place] [phone] Referral ID Status Reason Start Date Expiration Date Visits Requ ested Visits Authorized [id number] Closed 02/16/2018 02/16/2019 1 1 Transplant (Routine) - Closed Specialty Diagnoses / Procedures Referred By Contact Refer red To Contact Transplant Surgery / Diagnoses Pretransplant Recipient Evaluation Exam Chronic Kidney Disease Stage 4 Glomerular Filtration Rate 15-29 (HCC) Ting Mead [facility] Transplant [place] [address] [place] [phone] Referral ID Status Reason Start Date Expiration Date Visits Requ ested Visits Authorized [id number] Closed 02/16/2018 02/16/2019 1 1 Outpatient (Routine) - Closed Specialty Diagnoses / Procedures Referred By Contact Refer red To Contact Pharmacy Diagnoses Pretransplant Recipient Evaluation Exam Chronic Kidney Disease Stage 4 Glomerular Filtration Rate 15-29 (HCC) Ting Mead M.D. [facility] [address] [place] [phone] Referral ID Status Reason Start Date Expiration Date Visits Requ ested Visits Authorized [id number] Closed 02/16/2018 02/16/2019 1 1 Transplant (Routine) - Closed Specialty Diagnoses / Procedures Referred By Contact Refer red To Contact Transplant Surgery / Diagnoses Pretransplant Recipient Evaluation Exam Chronic Kidney Disease Stage 4 Glomerular Filtration Rate 15-29 (HCC) Ting Mead [facility] Transplant [place] [address] [place] [phone] Referral ID Status Reason Start Date Expiration Date Visits Requ ested Visits Authorized [id number] Closed 02/16/2018 02/16/2019 1 1 Specialty Diagnoses / Procedures Referred By Contact Refer mindy To Contact Ting Mead M. D. [facility] [address] [place] [phone] Referral ID Status Reason Start Date Expiration Date Visits Requ ested Visits Authorized Transplant (Routine) - Closed Specialty Diagnoses / Procedures Referred By Contact Refer mindy To Contact Transplant Surgery / Diagnoses Pretransplant Recipient Evaluation Exam Chronic Kidney Disease Stage 4 Glomerular Filtration Rate 15-29 ([facility]) Ting Mead [facility] Transplant [place] [address] [place] [phone] Referral ID Status Reason Start Date Expiration Date Visits Requ ested Visits Authorized [id number] Closed 02/16/2018 02/16/2019 1 1 Reason for Visit Reason Onset Date Comments Need Orders - Olena 02/16/2018 Encounter Details Date Type Department Care Team Description 02/16/2018 Clinical Maurizio Richmond - Olena [facility] for Ting Millard, Transplantation and Sada Clinical [facility] [address] [place] [address] in [facility] [phone] [place] [address] [place], [place] (Work) [phone] Social History Tobacco Use Types Packs/Day Years [...] at Date Recorded Male 05/16/2020 4:27 PM [employer] documented as of 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 [address] [place] [phone] 05/23/2022 Clinical Admitting/Central Communication Scheduling 05/27/2022 Comprehensive Visit Orthopedic Surgery Markus Sams M.D., Ph.D. [address] [place] [phone] 05/29/2022 Office Visit Otorhinolaryngology Dex Matta APRN, C.NDemetriusP., M.S.N. [address] [place] [phone] 05/29/2022 Office Visit Otorhinolaryngology Nadeem Maradiaga, Jennifer., M.S. [address] [place] [phone] 05/31/2022 Appointment Radiology Guilherme Matt, RASTA, Jennifer., M.S. [address] [place] [phone] 06/05/2022 Appointment Laboratory Medicine Angélica Granger P.A.-C. [address] [place] [phone] 06/19/2022 Appointment Laboratory Medicine Angélica Granger P.A.-C. [address] [place] [phone] 07/03/2022 Appointment Laboratory Medicine Angélica Granger P.A.-C. [address] [place] [phone] 07/17/2022 Appointment Laboratory Medicine Angélica Granger P.A.-C. [address] [place] [phone] 07/31/2022 Appointment Laboratory Medicine Angélica Granger P.A.-C. [address] [place] [phone] 08/14/2022 Appointment Laboratory Medicine Angélica Granger P.A.-C. [address] [place] [phone] 08/28/2022 Appointment Laboratory Medicine Angélica Granger P.A.-C. [address] [place] [phone] Scheduled Referrals Name Type Priority Associated Diagnoses Order S [facility] Transplant - Surgery Outpatient Referral Routine Pretransplant Expected: consult (clinic) Recipient Evaluation 08/2017 Exam (Approximate), Chronic Kidney Expires: Disease Stage 4 02/16/2019 Glomerular Filtration Rate 15-29 ([facility]) Transplant - Kidney Outpatient Referral Routine Pretransplant Expected: pancreas pre Recipient Evaluation 018 education visit Exam (Approximate), (clinic) Chronic Kidney Expires: Disease Stage 4 02/16/2019 Glomerular Filtration Rate 15-29 ([facility]) Transplant - Outpatient Referral Routine Pretransplant Expecte d: Nutrition consult Recipient Evaluation (clinic) Exam (Approximate), Chronic Kidney Expires: Disease Stage 4 02/16/2019 Glomerular Filtration Rate 15-29 ([facility]) Pharmacy - Outpatient Referral Routine Pretransplant Expecte d: Medication therapy Recipient Evaluation 1 management - Exam (Approximate), transplant consult Chronic Kidney Expires : (clinic) Disease Stage 4 02/16/2019 Glomerular Filtration Rate 15-29 ([facility]) Transplant - Nurse Outpatient Referral Routine Pretransplant [...] COLOR AND DOPPLER (03/26/2018 8:54 AM CDT) [employer] gist Method Time Signature Ejection Fraction 61 [...] Gram Stain, Urine (03/25/2018 9:35 AM CDT) [facility] Method Time Signature Gram's Stain, Negative 03/25/2018 [facility] Screen, U 9:46 AM CDT [facility] Comment: ----ADDITIONAL INFORMATION---- This test has been modified from the man ufacturer's instructions. Its performance characteri stics were determined by [facility] in a manner co nsistent with [...] Phon e Number [facility] - [address] [place] [phone] [facility] (ABNORMAL) Urinalysis with Microscopic (03/25/2018 9:35 AM CDT) [facility] Method Time Signature Source Midstream 03/25/2018 [facility] 9:35 AM CDT [facility] Appearance Normal Normal 03/25/2018 [facility] 10:42 AM T [facility] Osmolality, U 495 150 - 1150 03/25/2018 [facility] mOsm/kg 11:54 AM T [facility] pH, U 6.4 4.5 - 8.0 03/25/2018 [facility] 11:54 AM T [facility] Comment: ----ADDITIONAL INFORMATION---- This test was developed and its performa nce characteristics determined by [facility] in a manner co nsistent with CLIA requirements. This test has not bee n cleared or approved by the U.S. Food and Drug Admin istration. Glucose 3 0 - 15 mg/dL 03/25/2018 10:42 AM CDT [facility] Protein, U 75 (H) <26 mg/dL 03/25/2018 10:42 AM CDT [facility] S Comment: ----ADDITIONAL INFORMATION---- On 12/17/2016 the total protein assay me thod changed resulting in approximately a 15% increase in prote in values. Protein/Osmolality 1.52 (H) <0.42 Ratio 03/25/2018 11:54 AM [facility] CDT LABORATORIES - [facility] Comment: ----ADDITIONAL INFORMATION---- On 12/17/2016 the total protein assay me thod changed resulting in approximately a 15% increase in prote in values. Predicted 24 Hr 1399 mg/24 h 03/25/2018 11:54 AM [facility] Protein CDT [facility] Predicted Range 444-4408 mg/24 h 03/25/2018 11:[address] [facility] Hemoglobin, QL Small (A) Negative 03/25/2018 12:01 PM [facility] CDT LABORATORIES [facility] Specimen Anatomical Collection Method Collection Time Receive d Time (Source) Location / / Volume Laterality Urine (Urine, 03/25/2018 9:35 AM 03/25/20 18 Clean Catch) CDT 10:42 AM CDT Ting Mead M.D. LAB URINE ORDERABLES Performing Organization Address City/[facility]/ZIP Code Phon e Number [facility] LABORATORIES - [address] [employer] Storage, Urine (03/25/2018 9:35 AM CDT) [employer] gist Method Time Signature Cee/Kid Collected 03/25/2018 [facility] Storage, U 11:48 AM CDT [facility] Specimen Anatomical Collection Method Collection Time Receive d Time (Source) Location / / Volume Laterality Urine (Urine, 03/25/2018 9:35 AM 03/25/20 18 Clean Catch) CDT 11:48 AM CDT Ting Mead M.D. LAB URINE ORDERABLES Performing Organization Address City/[facility] Phon e Number [facility] - [address] DX Chest AP or PA and [...] Ting Mead M.D. IMG DIAGNOSTIC IMAGING PROCE DURES ECG 12 Lead (03/25/2018 8:24 AM CDT) P athologist Signature Ventricular Rate 48 BPM MUSE ECG/Min MT Interval 148 ms MUSE QRSD Interval 96 ms MUSE QT Interval 464 ms MUSE QTC Interval 414 ms MUSE P [place] 51 degrees MUSE R [place] -4 degrees MUSE T Wave [place] 58 degrees MUSE Specimen Anatomical Collection Method [...] athologist Signature HIV-1/-2 Ag Negative Negative 03/25/2018 [facility] and Ab Screen, 11:40 AM CDT [facility] Comment: Negative result does [...] Organization Address City/State/ZIP Code Phon e Number [facility] [address] [place] [address] [facility] (ABNORMAL) Troponin T (03/25/2018 7:46 AM CDT) Analysis Performed At [facility] Time Signature Troponin T, 22 (H) <=15 ng/L 03/25/2018 [facility] 5th gen 9:18 AM CDT LABORATORIES - [facility] Specimen Anatomical Collection Method Collection Time Receive d Time (Source) Location / / Volume Laterality Blood (Blood, 03/25/2018 7:46 AM 03/25/20 18 7:54 Venous) CDT AM CDT Ting Mead M.D. LAB BLOOD ADD-ON Performing Organization Address City/[facility] Code Phon e Number [facility] LABORATORIES - 200 [place] [address] [facility] PT (Prothrombin Time) with INR (03/25/2018 7:46 AM CDT) [facility] Method Time Signature Prothrombin 10.5 9.4 - 12.5 03/25/2018 [facility] Time, P sec 8:21 AM CDT LABORATORIES - [facility] INR 1.0 0.9 - 1.1 03/25/2018 [facility] 8:21 AM CDT [facility]ATOR[facility] - [facility] Comment: ----ADDITIONAL INFORMATION---- Standard intensity warfarin therapeutic [...] City/[facility]/ZIP Code Phon e Number [facility] LABORATORIES - 200 [place] [address] [facility] (ABNORMAL) CBC with Differential (03/25/2018 7:46 AM CDT) [facility] Method Time Signature Hemoglobin 12.3 (L) 13.2 - 03/25/2018 [facility] 16.6 g/dL 8:12 AM CDT LAB[facility]ATORIES - [facility] Hematocrit 36.8 (L) 38.3 - 03/25/2018 [facility] 48.6 % 8:12 AM CDT LAB[facility]ATORIES - [facility] Erythrocytes 3.96 (L) 4.35 - 03/25/2018 [facility] 5.65 8:12 AM CDT LABORATORIES - x10(12)/L [facility] MCV 92.9 78.2 - 03/25/2018 [facility] 97.9 fL 8:12 AM CDT [facility] - [facility] RBC Distrib 12.0 11.8 - 03/25/2018 [facility] Width 14.5 % 8:12 AM CDT [facility] - [facility] Platelet Count 173 135 - 317 03/25/2018 [facility] x10(9)/L 8:12 AM CDT [facility]ATOR[facility] - [facility] Leukocytes 4.2 3.4 - 9.6 03/25/2018 [facility] x10(9)/L 8:12 AM CDT [facility] - [facility] Neutrophils 2.28 1.56 - 03/25/2018 [facility] 6.45 8:12 AM CDT LABORATORIES - x10(9)/L [facility] Lymphocytes 1.32 0.95 - 03/25/2018 [facility] 3.07 8:12 AM CDT LABORATORIES - x10(9)/L [facility] Monocytes 0.51 0.26 - 03/25/2018 [facility] 0.81 8:12 AM CDT LABORATORIES - x10(9)/L [facility] Eosinophils 0.07 0.03 - 03/25/2018 [facility] 0.48 8:12 AM CDT LABORATORIES - x10(9)/L [facility] Basophils <0.03 0.01 - 03/25/2018 [facility] 0.08 8:12 AM CDT LABORATORIES - x10(9)/L [facility] Specimen Anatomical Collection Method Collection Time Receive d Time (Source) Location / / Volume Laterality Blood (Blood, 03/25/2018 7:46 AM 03/25/20 18 7:54 Venous) CDT AM CDT Ting Mead M.D. LAB BLOOD ADD-ON Performing Organization Address City/State/ZIP Code Phon e Number [facility] LABORATORIES - [address] [place], [place] [address] [facility] Cee/Kid 5cc Storage, B (03/25/2018 7:45 AM CDT) [facility] Method Time Signature Storage, Red Collected 03/25/2018 [facility] 7:54 AM CDT [facility] Storage, ACD Collected 03/25/2018 [facility] 7:57 AM CDT [facility] Specimen Anatomical Collection Method Collection Time Receive d Time (Source) Location / / Volume Laterality Blood (Blood, 03/25/2018 7:45 AM 03/25/20 7:54 Venous) CDT AM CDT Narrative [facility] - 03/25/2018 7:57 AM CDT Specimen Information: Specimen ID: [id number] Specimen Type: Blood Specimen Collection Start Date: 03/25/20 ??7:45 AM Specimen Received Date: 03/25/2018 ??7:5 4 AM Specimen ID: [id number] Specimen Collection Start Date: 03/25/20 ??7:45 AM Specimen Received Date: 03/25/2018 ??7:5 7 AM Ting Mead M.D. LAB BLOOD ADD-ON Performing Organization Address City/State/ZIP Code Phon e Number [facility] - [address] [place] [phone] [facility] QuantiFERON-Tb Gold Plus, Blood (03/25/2018 7:45 AM CDT) P athologist Signature QuantiFERON-TB Negative Negative 03/26/2018 [facility] Gold Plus 12:16 PM CDT [facility] Comment: No interferon-gamma response to M. tuber [...] DM et. al. Clin. Infect. Dis. 2017;64(2):111-115]. TB1 Ag minus Nil Result 0.00 IU/mL 03/26/2018 1 2:16 PM CDT [facility] TB2 Ag minus Nil Result 0.00 IU/mL 03/26/2018 1 2:16 PM CDT [facility] Mitogen minus Nil 9.67 IU/mL 03/26/2018 12:16 PM CD T [facility] Nil Result 0.11 IU/mL 03/26/2018 12:16 PM CDT [facility] Specimen Anatomical Collection Method Collection Time Receive d Time (Source) Location / / Volume Laterality Blood (Blood, 03/25/2018 7:45 AM 03/25/20 18 Venous) CDT 10:40 AM CDT Narrative [facility] - 03/26/2018 12:16 PM CDT Specimen Information: Specimen ID: [id number] Specimen Type: Blood Specimen Collection Start Date: 03/25/20 ??7:45 AM Specimen Received Date: 03/25/2018 10:40 AM Specimen ID: [id number] Specimen Type: Blood Specimen Collection Start Date: 03/25/20 ??7:46 AM Specimen Received Date: 03/25/2018 10:40 AM Specimen ID: [id number] Specimen Type: Blood Specimen Collection Start Date: 03/25/20 ??7:46 AM Specimen Received Date: 03/25/2018 10:40 AM Specimen ID: [id number] Specimen Type: Blood Specimen Collection Start Date: 03/25/20 ??7:45 AM Specimen Received Date: 03/25/2018 10:40 AM Ting Mead M.D. LAB MICROBIOLOGY - BLOOD ORD ERABLES Performing Organization Address City/State/ZIP Code Phon e Number [facility] [address] [place] [address] [place] [address] Varicella-Zoster Ab, IgM and IgG (03/25/2018 7:45 AM CDT) P athologist Signature Varicella-Zost Positive 03/25/2018 [facility] er Ab, IgG, S 11:19 AM CDT [facility] Comment: Results suggest response to immunization or prior exposure to the virus. ----REFERENCE VALUE---- Vaccinated: Positive (>=1.1 AI) Unvaccinated: Negative (<=0.8 AI) Varicella IgG 6.5 03/25/2018 11:19 AM [facility] Antibody Index CDT [facility] Varicella-Zoster Ab, Negative Negative 03/26/2018 4:56 PM CDT [facility] IgM, S [facility] Specimen Anatomical Collection Method Collection Time Receive d Time (Source) Location / / Volume Laterality Blood (Blood, 03/25/2018 7:45 AM 03/25/20 9:56 Venous) CDT AM CDT Ting Mead M.D. LAB MICROBIOLOGY - BLOOD ORD ERABLES Performing Organization Address City/[facility]/ZIP Code Phon e Number [address] [place] [address] [facility] Syphilis IgG Antibody with Reflex (03/25/2018 7:45 AM CDT) athologist Signature Syphilis IgG Negative Negative 03/25/2018 [facility] Ab, S 11:19 AM CDT [facility] Comment: No serologic evidence of exposu re to syphilis. Specimen Anatomical Collection Method Collection Time Receive d Time (Source) Location / / Volume Laterality Blood (Blood, 03/25/2018 7:45 AM 03/25/20 9:56 Venous) CDT AM CDT Ting Mead M.D. LAB BLOOD ADD-ON Performing Organization Address City/[facility]/ZIP Code Phon e Number [address] [place] HSV Types 1 and 2 Ab (03/25/2018 7:45 AM CDT) athologist Signature HSV Type 1 Ab, Positive Negative 03/25/2018 [facility] IgG, S 11:43 AM CDT [facility] HSV Type 2 Ab, Negative Negative 03/25/2018 [facility] IgG, S 11:43 AM CDT [facility] HSV Ab Screen, Negative Negative 03/25/2018 [facility] IgM, S by EIA 4:07 PM CDT [facility] Comment: ----ADDITIONAL INFORMATION---- This test has been modified from the man ufacturer's instructions. Its performance characteri stics were determined by [facility] in a manner co nsistent with CLIA requirements. This test has not bee n cleared or approved by the U.S. Food and Drug Admin istration. Specimen Anatomical Collection Method Collection Time Receive d Time (Source) Location / / Volume Laterality Blood (Blood, 03/25/2018 7:45 AM 03/25/20 18 Venous) CDT 10:33 AM CDT Ting Mead M.D. LAB MICROBIOLOGY - BLOOD ORD ERABLES Performing Organization Address City/[facility]/ZIP Code Phon e Number [address] [place] HCV Ab Scrn w/Reflex to HCV PCR, Serum (03/25/2018 7:45 AM CDT) athologist Signature HCV Ab Screen, Negative Negative 03/25/2018 [facility] S 11:12 AM CDT [facility] Comment: Rozzft-lv-svxpun ratio is <1.00 . Specimen Anatomical Collection Method Collection Time Receive d Time (Source) Location / / Volume Laterality Blood (Blood, 03/25/2018 7:45 AM 03/25/20 18 9:48 Venous) CDT AM CDT Ting Mead M.D. LAB MICROBIOLOGY - BLOOD ORD ERAKAJAL Performing Organization Address [facility]/ZIP Code Phon e Number [address] [place] Hepatitis B Core Total Ab (03/25/2018 7:45 AM CDT) athologist Signature HBc Total Ab, Negative Negative 03/25/2018 [facility] S 11:11 AM CDT [facility] Specimen Anatomical Collection Method Collection Time Receive d Time (Source) Location / / Volume Laterality Blood (Blood, 03/25/2018 7:45 AM 03/25/20 18 9:48 Venous) CDT AM CDT Ting Mead M.D. LAB MICROBIOLOGY - BLOOD ORD ERABLES Performing Organization Address City/[facility]/ZIP Code Phon e Number [address] [place] HBs Antibody, Serum (03/25/2018 7:45 AM CDT) athologist Signature HBs Antibody, Positive 03/25/2018 [facility] S 11:11 AM CDT [facility] Comment: Patient is considered to be immune to in fection with HBV. ----REFERENCE VALUE---- Unvaccinated: Negative Vaccinated: Positive HBs Antibody, 81.8 mIU/mL 03/25/2018 11:11 AM CDT [facility] Comment: ----REFERENCE VALUE---- Unvaccinated: <5.0 Vaccinated: >=12.0 Specimen Anatomical Collection Method Collection Time Receive d Time (Source) Location / / Volume Laterality Blood (Blood, 03/25/2018 7:45 AM 03/25/20 18 9:48 Venous) CDT AM CDT Ting Mead M.D. LAB MICROBIOLOGY - BLOOD ORD ERABLES Performing Organization Address City/[facility]/ZIP Code Phon e Number [address] [place] [address] [facility] Hepatitis B Surface Antigen (03/25/2018 7:45 AM CDT) athologist Signature HBs Antigen, S Negative Negative 03/25/2018 [facility] 10:54 AM CDT [facility] Specimen Anatomical Collection Method Collection Time Receive d Time (Source) Location / / Volume Laterality Blood (Blood, 03/25/2018 7:45 AM 03/25/20 18 9:48 Venous) CDT AM CDT Ting Mead M.D. LAB MICROBIOLOGY - BLOOD ORD ERAKAJAL Performing Organization Address City/[facility] Code Phon e Number [address] [place] [address] [facility] Hepatitis A IgG Ab, Serum (03/25/2018 7:45 AM CDT) athologist Signature Hepatitis A Positive 03/25/2018 [facility] IgG Ab, S 10:32 AM CDT [facility] Comment: Result indicates immunity to hepatitis A [...] Organization Address City/State/ZIP Code Phon e Number [place] [id number] [place], [place] [address] SUPPORT STINNETT (ABNORMAL) PTH (Parathyroid Hormone) (03/25/2018 7:45 AM CDT) [facility] Method Time Signature Parathyroid 102 (H) 15 - 65 03/25/2018 [facility] Hormone (PTH), pg/mL 9:11 AM CDT LABORATORIES - S [facility] Specimen Anatomical Collection Method Collection Time Receive d Time (Source) Location / / Volume Laterality Blood (Blood, 03/25/2018 7:45 AM 03/25/20 18 7:54 Venous) CDT AM CDT Ting Mead M.D. LAB BLOOD ADD-ON Performing Organization Address City/[facility] Code Phon e Number [facility] LABORATORIES - [address] (ABNORMAL) S-TSH (Thyroid-Stimulating Hormone - Sensitive) (03/25/2018 7:45 AM CDT) [facility] Method Time Signature TSH, Sensitive 6.0 (H) 0.3 - 4.2 03/25/2018 [facility] mIU/L 9:10 AM CDT LABORATORIES [facility] Specimen Anatomical Collection Method Collection Time Receive d Time (Source) Location / / Volume Laterality Blood (Blood, 03/25/2018 7:45 AM 03/25/20 18 7:54 Venous) CDT AM CDT Ting Mead M.D. LAB BLOOD ADD-ON Performing Organization Address City/[facility] Code Phon e Number [facility] LABORATORIES - [address] HLA Class II SAB Antibody Screen (03/25/2018 7:45 AM CDT) [facility] Method Time Signature Class II SAB Positive Not Applicable 03/27/2018 [facility] Overall 7:42 AM CDT LABORATORIES - Result [facility] Class II SAB 2 03/27/2018 [facility] cPRA 7:42 AM CDT LABORATORIES - [facility] Comment: ----ADDITIONAL INFORMATION---- This PRA is a [facility] ue Typing Laboratory calculated PRA. PRA is based on the antigen frequency of the Tissue Typing patient a nd donor population. ??PRA reflects all antibodie s with a normalized value (MFI) above 300. SAB DRB1 Specificity see below 03/27/2018 7:42 AM CDT [facility] Comment: 103[318] Format: Serologic equivalent/abbreviated specificity [Normalized Value] shown in decreasing o rder. Note: A serologic equivalent/abbreviated specifi city displayed multiple times could indicate different alleles. SAB [id number] Specificity NONE 03/27/2018 7:42 A M CDT [facility] SAB DQB1 Specificity NONE 03/27/2018 7:42 AM CDT [facility] SAB DPB1 Specificity see below 03/27/2018 7:42 AM CDT [facility] Comment: 23[525], 11[374], 14[333] Format: Serologic equivalent/abbreviated specificity [Normalized Value] shown in decreasing o rder. Note: A serologic equivalent/abbreviated specifi city displayed multiple times could indicate different alleles. ----ADDITIONAL INFORMATION---- Method: [facility] Performing Laboratory CLIA# [id number] Specimen Anatomical Collection Method Collection Time Receive d Time (Source) Location / / Volume Laterality Blood (Blood, 03/25/2018 7:45 AM 03/25/20 18 9:46 Venous) CDT AM CDT Ting Mead M.D. LAB HLA ORDERABLES Performing Organization Address City/State/[facility] Code Phon e Number [facility] - [address] [place], [place] [address] [facility] HLA Class I SAB Antibody Screen (03/25/2018 7:45 AM CDT) [facility] Method Time Signature Class I SAB Positive Not Applicable 03/27/2018 [facility] Overall 7:16 AM CDT LABORATORIES - Result [facility] Class I SAB 7 03/27/2018 [facility] cPRA 7:16 AM CDT [facility] Comment: ----ADDITIONAL INFORMATION---- This PRA is a [facility]iss ue Typing Laboratory calculated PRA. PRA is based on the antigen frequency of the Tissue Typing patient a nd donor population. ??PRA reflects all antibodie s with a normalized value (MFI) above 300. SAB A Specificity see below 03/27/2018 7:16 AM CDT [facility] Comment: 29[303] Format: Serologic equivalent/abbreviated specificity [Normalized Value] shown in decreasing o rder. Note: A serologic equivalent/abbreviated specifi city displayed multiple times could indicate different alleles. SAB B Specificity see below 03/27/2018 7:16 AM CDT [facility] Comment: 54[241] Format: Serologic equivalent/abbreviated specificity [Normalized Value] shown in decreasing o rder. Note: A serologic equivalent/abbreviated specifi city displayed multiple times could indicate different alleles. SAB C Specificity NONE 03/27/2018 7:16 AM CDT [facility] Comment: ----ADDITIONAL INFORMATION---- Method: [facility] Performing Laboratory CLIA# [id number] Specimen Anatomical Collection Method Collection Time Receive d Time (Source) Location / / Volume Laterality Blood (Blood, 03/25/2018 7:45 AM 03/25/20 18 9:46 Venous) CDT AM CDT Ting Mead M.D. LAB HLA ORDERABLES Performing Organization Address City/[facility] Phon e Number [address] Isoagglutinin Titer, Anti-B (03/25/2018 7:45 AM CDT) [employer] Method Time Signature Isoagglutinin 8 03/25/2018 [facility] Titer, Anti-B 3:28 PM CDT [facility] Specimen Anatomical Collection Method Collection Time Receive d Time (Source) Location / / Volume Laterality Blood (Blood, 03/25/2018 7:45 AM 03/25/20 18 8:14 Venous) CDT AM CDT Ting Mead M.D. LAB BLOOD BANK TEST ORDERABL ES Performing Organization Address City/[facility]/ZIP Code Phon e Number [facility] [address] [place] [phone] [facility] Isoagglutinin Titer, Anti-A (03/25/2018 7:45 AM CDT) [employer] Method Time Signature Isoagglutinin 16 03/25/2018 [facility] Titer, Anti-A 3:28 PM CDT [facility] Specimen Anatomical Collection Method Collection Time Receive d Time (Source) Location / / Volume Laterality Blood (Blood, 03/25/2018 7:45 AM 03/25/20 18 8:14 Venous) CDT AM CDT Ting Mead M.D. LAB BLOOD BANK TEST ORDERABL ES Performing Organization Address City/[facility]/ZIP Code Phon e Number [facility] - [address] [place] [phone] [facility] Phosphorus Inorganic (03/25/2018 7:45 AM CDT) Analysis Performed At Patho logist Time Signature Phosphorus 3.4 2.5 - 4.5 03/25/2018 [facility] (Inorganic), S mg/dL 9:10 AM CDT [facility] Specimen Anatomical Collection Method Collection Time Receive d Time (Source) Location / / Volume Laterality Blood (Blood, 03/25/2018 7:45 AM 03/25/20 18 7:54 Venous) CDT AM CDT Ting Mead M.D. LAB BLOOD ADD-ON Performing Organization Address City/State/ZIP Code Phon e Number [facility] - [address] [place] [phone] [facility] (ABNORMAL) Lipid Panel (03/25/2018 7:45 AM CDT) P athologist Signature Cholesterol, 162 mg/dL 03/25/2018 [facility] Total 9:10 AM CDT [facility] Comment: ----REFERENCE VALUE---- Desirable: < 200 Borderline high: 200 - 239 High: > or = 240 Triglycerides 150 (H) mg/dL 03/25/2018 9:10 AM CDT [facility] Comment: ----REFERENCE VALUE---- Normal: <150 Borderline high: 150-199 High: 200-499 Very high: > or =500 Cholesterol, HDL, S 50 >=40 mg/dL 03/25/2018 9:10 AM CDT [facility] Calculated LDL 82 mg/dL 03/25/2018 9:10 AM CDT [facility] Comment: ----REFERENCE VALUE---- Desirable: <100 Above Desirable: 100-129 Borderline high: 130-159 High: 160-189 Very high: > or =190 Cholesterol, Non-HDL, 112 mg/dL 03/25/2018 9:1 0 AM CDT [facility] Comment: ----REFERENCE VALUE---- Desirable: <130 Above Desirable: 130-159 Borderline high: 160-189 High: 190-219 Very high: > or =220 Specimen Anatomical Collection Method Collection Time Receive d Time (Source) Location / / Volume Laterality Blood (Blood, 03/25/2018 7:45 AM 03/25/20 18 7:54 Venous) CDT AM CDT Ting Mead M.D. LAB BLOOD ADD-ON Performing Organization Address City/State/ZIP Code Phon e Number [facility] LABORATORIES - [address] [place], [place] [address] [facility] (ABNORMAL) CMP (Comprehensive Metabolic Panel) (03/25/2018 7:45 AM CDT) [facility] Method Time Signature Potassium, S 4.0 3.6 - 5.2 03/25/2018 [facility] mmol/L 9:10 AM CDT LABORATORIES - [facility] Sodium, S 139 135 - 145 03/25/2018 [facility] mmol/L 9:10 AM CDT LABORATORIES - [facility] Chloride, S 99 98 - 107 03/25/2018 [facility] mmol/L 9:10 AM CDT LABORATORIES - [facility] Bicarbonate, S 28 22 - 29 03/25/2018 [facility] mmol/L 9:10 AM CDT LABORATORIES - [facility] Anion Gap 12 7 - 15 03/25/2018 [facility] 9:10 AM CDT LABORATORIES - [facility] BUN (Blood 57 (H) 8 - 24 03/25/2018 [facility] Urea mg/dL 9:10 AM CDT LABORATORIES - Nitrogen), S [facility] Creatinine 2.89 (H) 0.74 - 03/25/2018 [facility] 1.35 9:10 AM CDT LABORATORIES - mg/dL [facility] eGFR-Non 22 (L) >=60 03/25/2018 [facility] Black/ mL/min/BS 9:10 AM CDT LABORATORIES - Japanese A [facility] Comment: ----ADDITIONAL INFORMATION---- Estimated GFR calculated using the 2009 CKD_EPI creatinine equation. eGFR-Black/ 26 (L) >=60 mL/min/BSA 03/25/2018 9:10 [facility] Japanese AM CDT LABORATORIES - [facility] Comment: ----ADDITIONAL INFORMATION---- Estimated GFR calculated using the 2009 CKD_EPI creatinine equation. Calcium, Total, S 9.0 8.8 - 10.2 03/25/2018 9:10 AM [facility] mg/dL CDT LABORATORIES - [facility] Glucose, S 125 70 - 140 mg/dL 03/25/2018 9:[address] [facility] LABORATORIES [facility] Protein, Total, S 6.3 6.3 - 7.9 g/dL 03/25/2018 9:10 A M [facility] CDT LABORATORIES [facility] Albumin, S 4.2 3.5 - 5.0 g/dL 03/25/2018 9:[address] [facility] LABORATORIES [facility] Aspartate 18 8 - 48 U/L 03/25/2018 9:10 AM [facility] C Aminotransferase (AST), S T LABO RATORIES - [facility] Alkaline Phosphatase, S 74 45 - 115 U/L 03/25/2018 9: [address] [facility] LABORATORIES [facility] Alanine Aminotransferase 20 7 - 55 U/L 03/25/2018 9:1 0 AM [facility] (ALT), S [facility] Bilirubin, Total, S 0.3 <=1.2 mg/dL 03/25/2018 9:[address] [facility] Specimen Anatomical Collection Method Collection Time Receive d Time (Source) Location / / Volume Laterality Blood (Blood, 03/25/2018 7:45 AM 03/25/20 18 7:54 Venous) CDT AM CDT Ting Mead M.D. LAB BLOOD ADD-ON Performing Organization Address City/State/ZIP Code Phon e Number [facility] - [address] documented in this encounter Visit [...] of this encounter Care Teams Health And Wellness Coordinator Relationship Specialty Start Date End Date Elsewhere, Pcp PCP - General Family Medicine 07/29/17 documented as of this encounter
--- OUTSIDE RECORDS SUMMARY | 2022-05-17 19:03 | XMS_ITS | Encounter Summary ---
:1955 Author Organization [facility] Address [address] [place] [address] Care Team Providers Name Role Phone Elsewhere, Pcp Primary Care Provider Unavailable Encounter Details Date Type Department Care Team Description 02/24/2018 Hospital Department of Uri Rico M.D. 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 [address] [place] [phone] 05/23/2022 Clinical Admitting/Central Communication Scheduling 05/27/2022 Comprehensive Visit Orthopedic Surgery Markus Sams M.D., Ph.D. [address] [place] [phone] 05/29/2022 Office Visit Otorhinolaryngology Dex Matta APRN, C.N.P., M.S.N. [address] [place] [phone] 05/29/2022 Office Visit Otorhinolaryngology Nadeem Maradiaga, P.Murtaza.Marie., M.S. [address] [place] [phone] 05/31/2022 Appointment Radiology Guilherme Matt, RASTA, P.Tom., M.S. [address] [place] [phone] 06/05/2022 Appointment Laboratory Medicine Angélica Granger P.A.-C. [address] [place] [phone] 06/19/2022 Appointment Laboratory Medicine Angélica Granger P.A.-C. [address] [place] [phone] 07/03/2022 Appointment Laboratory Medicine Angélica Granger P.A.-C. [address] [place] [phone] 07/17/2022 Appointment Laboratory Medicine Angélica Granger P.A.-C. [address] [place] [phone] 07/31/2022 Appointment Laboratory Medicine Angélica Granger P.A.-C. [address] [place] [phone] 08/14/2022 Appointment Laboratory Medicine Angélica Granger P.A.-C. [address] [place] [phone] 08/28/2022 Appointment Laboratory Medicine Angélica Granger P.A.-C. [address] [place] [phone] documented as of this encounter Procedures Procedure Name Priority Date/Time Associated Diagnosis Comme nts EEG ROUTINE - AWAKE Routine 02/24/2018 3:12 PM [facility] Neu[facility] ical Results for this AND SLEEP CDT ([facility]) procedure are i n the results section. [...] as of this encounter Care Teams Fire Controlman Relationship Specialty Start Date End Date Elsewhere, Pcp PCP - General Family Medicine 07/29/17 documented as of this encounter
--- OUTSIDE RECORDS SUMMARY | 2022-05-17 19:03 | XMS_ITS | Encounter Summary ---
:1955 Author Organization [facility] Address [address] [place] [address] Care Team Providers Name Role Phone Elsewhere, Pcp Primary Care Provider Unavailable Reason for Referral Transplant (Routine) - Closed Specialty Diagnoses / Procedures Referred By Contact Refer red To Contact Transplant Surgery / Diagnoses Chronic Kidney Disease Stage 4 Glomerular Filtration Rate 15-29 ([facility]) Ting Mead, [facility] Transplant M.DDemetrius [address] [place] [address] Referral ID Status Reason Start Date Expiration Date Visits Requ ested Visits Authorized [id number] Closed 02/23/2018 02/23/2019 1 1 Reason for Visit Reason Onset Date Comments mood? Olena 02/17/2018 Encounter Details Date Type Department Care Team Description 02/17/2018 Clinical Communication Curt Vázquez , mood? [facility] Diana G Transplantation and [phone] Clinical Regeneration in ([facility]) [employer], [place] [address] [place] [phone] Social History Tobacco Use Types Packs/Day [...] 12/15/2021 organizations such as latter-day groups, unions, fraSellbrite or athletic groups, or school groups? 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 Olena Telephone Encounter - Diana Gambino - 02/17/2018 8:37 AM CDT Olena, In the note for eval it says pt needs mood but nothing is ordered so just wanting to check before sending out final pag. Thanks! Diana documented in this encounter Plan of Treatment Upcoming Encounters Date Type Specialty Care Team Description 05/22/2022 Appointment Laboratory Medicine Angélica Granger P.A.-C. [address] [place] [phone] 05/23/2022 Clinical Admitting/Central Communication Scheduling 05/27/2022 Comprehensive Visit Orthopedic Surgery Markus Sams M.D., Ph.D. [address] [place] [phone] 05/29/2022 Office Visit Otorhinolaryngology Dex Matta APRN, C.N.P., M.S.N. [address] [place] [phone] 05/29/2022 Office Visit Otorhinolaryngology Nadeem Maradiaga, P.A.-C., M.S. [address] [place] [phone] 05/31/2022 Appointment Radiology Guilherme Matt MPAS, P.A.-C., M.S. [address] [place] [phone] 06/05/2022 Appointment Laboratory Medicine Angélica Granger P.A.-C. [address] [place] [phone] 06/19/2022 Appointment Laboratory Medicine Angélica Granger P.A.-C. [address] [place] [phone] 07/03/2022 Appointment Laboratory Medicine Angélica Granger P.A.-C. [address] [place] [phone] 07/17/2022 Appointment Laboratory Medicine Angélica Granger P.A.-C. [address] [place] [phone] 07/31/2022 Appointment Laboratory Medicine Angélica Granger P.A.-C. [address] [place] [phone] 08/14/2022 Appointment Laboratory Medicine Angélica Granger P.A.-C. [address] [place] [phone] 08/28/2022 Appointment Laboratory Medicine Angélcia Granger P.A.-C. [address] [place] [phone] Scheduled Referrals Name Type Priority Associated Order Schedule Diagnoses Transplant - Outpatient Referral Routine Chronic Kidney Expect ed: Psychology consult Disease Stage 4 2017 (clinic) Glomerular (Approximate), Filtration Rate Expires: 15 ([facility]) 02/17/2019 documented as of this encounter Visit Diagnoses Diagnosis Chronic Kidney Disease Stage 4 Glomerula r Filtration Rate 15-29 ([facility]) - Primary documented in this encounter Additional Health Concerns Assessment Noted Time PHQ-9 Depression Total Score: 1 08/26/2017 10:50 AM CS T documented as of this encounter Care Teams General Assistant Relationship Specialty Start Date End Date Elsewhere, Pcp PCP - General Family Medicine 07/29/17 documented as of this encounter
--- OUTSIDE RECORDS SUMMARY | 2022-05-17 19:03 | XMS_ITS | Encounter Summary ---
:1955 Author Organization [facility] Address [address] [place] [address] Care Team Providers Name Role Phone Elsewhere, Pcp Primary Care Provider Unavailable Reason for Referral Outpatient (Routine) - Closed Specialty Diagnoses / Procedures Referred By Contact Refer red To Contact Neurology Tres Rico M.D. [address] [phone] Referral ID Status Reason Start Date Expiration Date Visits Requ ested Visits Authorized [id number] Closed 02/16/2018 02/16/2019 1 1 Reason for Visit Outpatient (Routine) - Closed Specialty Diagnoses / Procedures Referred By Contact Refer red To Contact Neurology Diagnoses Loss Memory Short Term Transplant Liver (HCC) Otoniel Linares M.D. [address] [phone] Referral ID Status Reason Start Date Expiration Date Visits Requ ested Visits Authorized [id number] Closed 02/04/2018 02/04/2019 1 1 Encounter Details Date Type Department Care Team Description 02/16/2018 Comprehensive Visit Department of Suhail Linares M.D. [address] [place] [phone] Loss Memory Short Term (Primary Dx); Neurology in Tres Rico M.D. 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 His [...] describes his activities as including riding his [employer] motorcycle, golfing, and up until recently he [...] doing well. Social history lives alone in [place], [place]. 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 He enjoys riding his [employer], golfing. 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 He helps check [...] myself. 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 He enjoys riding his [employer]. He also enjoys golfing. He lives alone. [...] Laboratory Medicine Angélica Granger P.A.-C. [address] [place] [phone] 05/23/2022 Clinical Admitting/Central Communication Scheduling 05/27/2022 Comprehensive Visit Orthopedic Surgery Markus Sams M.D., Ph.D. [address] [place] [phone] 05/29/2022 Office Visit Otorhinolaryngology Dex Matta APRN, CDemetriusN.P., M.S.N. [address] [place] [phone] 05/29/2022 Office Visit Otorhinolaryngology Nadeem Maradiaga, PMaryanne., M.S. [address] [place] [phone] 05/31/2022 Appointment Radiology Guilherme Matt, RASTA, Jennifer., M.S. [address] [place] [phone] 06/05/2022 Appointment Laboratory Medicine Angélica Granger P.A.-C. [address] [place] [phone] 06/19/2022 Appointment Laboratory Medicine Angélica Granger P.A.-C. [address] [place] [phone] 07/03/2022 Appointment Laboratory Medicine Angélica Granger P.A.-C. [address] [place] [phone] 07/17/2022 Appointment Laboratory Medicine Angélica Granger P.A.-C. [address] [place] [phone] 07/31/2022 Appointment Laboratory Medicine Angélica Granger P.A.-C. [address] [place] [phone] 08/14/2022 Appointment Laboratory Medicine Angélica Granger P.A.-C. [address] [place] [phone] 08/28/2022 Appointment Laboratory Medicine Angélica Granger P.A.-C. [address] [place] [phone] Scheduled Referrals Name Type Priority Associated Diagnoses Order S [facility] Neurology office Outpatient Referral Routine Expe cted: [...] documented as of this encounter Care Teams Patented Hogshead Assembler Relationship Specialty Start Date End Date Elsewhere, Pcp PCP - General Family Medicine 07/29/17 documented as of this encounter
--- OUTSIDE RECORDS SUMMARY | 2022-05-17 19:03 | XMS_ITS | Encounter Summary ---
:1955 Author Organization [facility] Address [address] [place] [address] Care Team Providers Name Role Phone Elsewhere, Pcp Primary Care Provider Unavailable Reason for Visit Reason Comments Patient Education Encounter Details Date Type Department Care Team Description 02/10/2018 Education Department of Patient Mercedez Coker M.D. 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 [address] [place] [phone] 05/23/2022 Clinical Admitting/Central Communication Scheduling 05/27/2022 Comprehensive Visit Orthopedic Surgery Markus Sams M.D., Ph.D. [address] [place] [phone] 05/29/2022 Office Visit Otorhinolaryngology Dex Matta APRN, C.N.P., M.S.N. [address] [place] [phone] 05/29/2022 Office Visit Otorhinolaryngology Nadeem Maradiaga, P.A.-Arley., M.S. [address] [place] [phone] 05/31/2022 Appointment Radiology Guilherme Matt MPAS, PAdilia, M.S. [address] [place] [phone] 06/05/2022 Appointment Laboratory Medicine Angélica Granger P.A.-C. [address] [place] [phone] 06/19/2022 Appointment Laboratory Medicine Angélica Granger P.A.-C. [address] [place] [phone] 07/03/2022 Appointment Laboratory Medicine Angélica Granger P.A.-C. [address] [place] [phone] 07/17/2022 Appointment Laboratory Medicine Angélica Granger P.A.-C. [address] [place] [phone] 07/31/2022 Appointment Laboratory Angélica Royal P.A.-C. [address] [place] [phone] 08/14/2022 Appointment Laboratory Angélica Royal P.A.-C. [address] [place] [phone] 08/28/2022 Appointment Laboratory Angélica Royal P.A.-C. [address] [place] [phone] documented as of this encounter Visit Diagnoses Diagnosis Chronic Kidney Disease Stage 4 Glomerula r Filtration Rate 15-29 (HCC) documented in this encounter Additional Health Concerns Assessment Noted Time PHQ-9 Depression Total Score: 1 08/26/2017 10:50 AM CS T documented as of this encounter Care Teams Head Of Merchandise Buying Relationship Specialty Start Date End Date Elsewhere, Pcp PCP - General Family Medicine 07/29/17 documented as of this encounter
--- OUTSIDE RECORDS SUMMARY | 2022-05-17 19:03 | XMS_ITS | Encounter Summary ---
:1955 Author Organization [facility] Address [address] [place] [address] Care Team Providers Name Role Phone Elsewhere, Pcp Primary Care Provider Unavailable Reason for Visit Reason Onset Date Comments Telephone 02/19/2018 Amoxicillin manageme nt Encounter Details Date Type Department Care Team Description 02/19/2018 Clinical Curt Marie, [facility] Communication Center for Roshan Hauser (Amoxicillin Transplantation and M.S.N., manageme nt) Clinical Alpesh RSteve, in [facility] C.C.T.C [address] [facility] [address] [facility] [phone] 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 [address] [place] [phone] 05/23/2022 Clinical Admitting/Central Communication Scheduling 05/27/2022 Comprehensive Visit Orthopedic Surgery Markus Sams M.D., Ph.D. [address] [place] [phone] 05/29/2022 Office Visit Otorhinolaryngology Dex aMtta APRN CDebbie., M.S.N. [address] [place] [phone] 05/29/2022 Office Visit Otorhinolaryngology Nadeem Maradiaga, Edmundo, M.S. [address] [place] [phone] 05/31/2022 Appointment Radiology Guilherme Matt, RASTA, Edmundo, M.S. [address] [place] [phone] 06/05/2022 Appointment Laboratory Medicine Angélica Granger P.A.-C. [address] [place] [phone] 06/19/2022 Appointment Laboratory Medicine Angélica Granger P.A.-C. [address] [place] [phone] 07/03/2022 Appointment Laboratory Medicine Angélica Granger P.A.-C. [address] [place] [phone] 07/17/2022 Appointment Laboratory Medicine Angélica Granger P.A.-C. [address] [place] [phone] 07/31/2022 Appointment Laboratory Medicine Angélica Granger P.A.-C. [address] [place] [phone] 08/14/2022 Appointment Laboratory Medicine Angélica Granger P.A.-C. [address] [place] [phone] 08/28/2022 Appointment Laboratory Medicine Angélica Granger P.A.-C. [address] [place] [phone] documented as of this encounter Visit Diagnoses Not on filedocumented in this encounter Additional Health Concerns Assessment Noted Time PHQ-9 Depression Total Score: 1 08/26/2017 10:50 AM CS T documented as of this encounter Care Teams Rating Clerk Relationship Specialty Start Date End Date Elsewhere, Pcp PCP - General Family Medicine 07/29/17 documented as of this encounter
--- OUTSIDE RECORDS SUMMARY | 2022-05-17 19:03 | XMS_ITS | Encounter Summary ---
:1955 Author Organization [facility] Address [address] [place] [address] Care Team Providers Name Role Phone Elsewhere, Pcp Primary Care Provider Unavailable Reason for Visit Reason Comments Med Refill Encounter Details Date Type Department Care Team Description 03/10/2018 Refill Division of Gastroenterology in Willis Mcdermott M.D. 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 [address] [place] [phone] 05/23/2022 Clinical Admitting/Central Communication Scheduling 05/27/2022 Comprehensive Visit Orthopedic Surgery Markus Sams M.D., Ph.D. [address] [place] [phone] 05/29/2022 Office Visit Otorhinolaryngology Dex Matta APRN, C.N.P., M.S.N. [address] [place] [address] [phone] 05/29/2022 Office Visit Otorhinolaryngology Nadeem Maradiaga, P.Murtaza.-Arley., M.S. [address] [place] [address] [phone] 05/31/2022 Appointment Radiology Guilherme Matt MPAS, P.Murtaza.Marie., M.S. [address] [place] [phone] 06/05/2022 Appointment Laboratory Medicine Angélica Granger P.A.-C. [address] [place] [phone] 06/19/2022 Appointment Laboratory Medicine Angélica Granger P.A.-C. [address] [place] [address] [phone] 07/03/2022 Appointment Laboratory Medicine Angélica Granger P.A.-C. [address] [place] [address] [phone] 07/17/2022 Appointment Laboratory Medicine Angélica Granger P.A.-C. [address] [place] [address] [phone] 07/31/2022 Appointment Laboratory Medicine Angélica Granger P.A.-C. [address] [place] [address] [phone] 08/14/2022 Appointment Laboratory Medicine Angélica Granger P.A.-C. [address] [place] [address] [phone] 08/28/2022 Appointment Laboratory Medicine Angélica Granger P.A.-C. [address] [place] [address] [phone] documented as of this encounter Visit Diagnoses Diagnosis Transplant Liver (HCC) - Primary documented in this encounter Additional Health Concerns Assessment Noted Time PHQ-9 Depression Total Score: 1 08/26/2017 10:50 AM CS T documented as of this encounter Care Teams Shirt Maker Relationship Specialty Start Date End Date Elsewhere, Pcp PCP - General Family Medicine 07/29/17 documented as of this encounter
--- OUTSIDE RECORDS SUMMARY | 2022-05-17 19:03 | XMS_ITS | Encounter Summary ---
:1955 Author Organization [facility] Address [address] [place] [address] Care Team Providers Name Role Phone Elsewhere, Pcp Primary Care Provider Unavailable Reason for Referral Transplant (Routine) - Closed Specialty Diagnoses / Procedures Referred By Contact Refer red To Contact Transplant Diagnoses Failure Renal [facility]st [facility] [address] [place] [address] Referral ID Status Reason Start Date Expiration Date Visits Requ ested Visits Authorized [id number] Closed 02/11/2018 02/11/2019 1 1 Reason for Visit Reason Onset Date Comments financial approval 02/11/2018 Encounter Details Date Type Department Care Team Description 02/11/2018 Clinical Curt Garces Preschedemile rosario formerly [facility] Communication Center for Provider approval Transplantation and Clinical Regeneration in [place], [place] [address] [place] [phone] Social History Tobacco Use Types Packs/Day Years [...] at Date Recorded 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 [address] [place] [phone] 05/23/2022 Clinical Admitting/Central Communication Scheduling 05/27/2022 Comprehensive Visit Orthopedic Surgery Markus Sams M.D., Ph.D. [address] [place] [phone] 05/29/2022 Office Visit Otorhinolaryngology Dex Matta APRN, C.N.P., M.S.N. [address] [place] [phone] 05/29/2022 Office Visit Otorhinolaryngology Nadeem Maradiaga, P.A.-C., M.S. [address] [place] [phone] 05/31/2022 Appointment Radiology Guilherme Matt MPAS, Edmundo, M.S. [address] [place] [address] [phone] 06/05/2022 Appointment Laboratory Medicine Angélica Granger P.A.-C. [address] [place] [phone] 06/19/2022 Appointment Laboratory Medicine Angélica Granger P.A.-C. [address] [place] [phone] 07/03/2022 Appointment Laboratory Medicine Angélica Granger P.A.-C. [address] [place] [phone] 07/17/2022 Appointment Laboratory Medicine Angélica Granger P.A.-C. [address] [place] [phone] 07/31/2022 Appointment Laboratory Medicine Angélica Granger P.A.-C. [address] [place] [phone] 08/14/2022 Appointment Laboratory Medicine Angélica Granger P.A.-C. [address] [place] [phone] 08/28/2022 Appointment Laboratory Medicine Angélica Granger P.A.-C. [address] [place] [address] [phone] Scheduled Referrals Name Type Priority Associated Order Schedule Diagnoses Transplant referral Outpatient Referral Routine Failure Renal Ordered: authorization and 02/11/2018 benefits check documented as of this encounter Visit Diagnoses Diagnosis Failure Renal - Primary documented in this encounter Additional Health Concerns Assessment Noted Time PHQ-9 Depression Total Score: 1 08/26/2017 10:50 AM CS T documented as of this encounter Care Teams Cigarette And Filter Chief Inspector Relationship Specialty Start Date End Date Elsewhere, Pcp PCP - General Family Medicine 07/29/17 documented as of this encounter
--- OUTSIDE RECORDS SUMMARY | 2022-05-17 19:03 | XMS_ITS | Encounter Summary ---
:1955 Author Organization [facility] Address [address] [place] [address] Care Team Providers Name Role Phone Elsewhere, Pcp Primary Care Provider Unavailable Encounter Details Date Type Department Care Team Description 02/11/2018 Clinical Communication Curt Loera, Center for Patricia Azevedo R.N., Transplantation and C.C.T.C. 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 [address] [place] [phone] 05/23/2022 Clinical Admitting/Central Communication Scheduling 05/27/2022 Comprehensive Visit Orthopedic Surgery Markus Sams M.D., Ph.D. [address] [place] [phone] 05/29/2022 Office Visit Otorhinolaryngology Dex Matta APRN, C.N.P., M.S.N. [address] [place] [phone] 05/29/2022 Office Visit Otorhinolaryngology Nadeem Maradiaga P.A.-C., M.S. [address] [place] [phone] 05/31/2022 Appointment Radiology Guilherme Matt MPAS, P.A.-C., M.S. [address] [place] [phone] 06/05/2022 Appointment Laboratory Medicine Angélica Granger P.A.-C. [address] [place] [phone] 06/19/2022 Appointment Laboratory Medicine Angélica Granger P.A.-C. [address] [place] [phone] 07/03/2022 Appointment Laboratory Medicine Angélica Granger P.A.-C. [address] [place] [phone] 07/17/2022 Appointment Laboratory Medicine Angélica Granger P.A.-C. [address] [place] [phone] 07/31/2022 Appointment Laboratory Medicine Angélica Granger P.A.-C. [address] [place] [phone] 08/14/2022 Appointment Laboratory Medicine Angélica Granger P.A.-C. [address] [place] [phone] 08/28/2022 Appointment Laboratory Medicine Angélica Granger P.A.-C. [address] [place] [phone] documented as of this encounter Visit Diagnoses Not on filedocumented in this encounter Additional Health Concerns Assessment Noted Time PHQ-9 Depression Total Score: 1 08/26/2017 10:50 AM EUGENIO T documented as of this encounter Care Teams Starch Factory Laborer Relationship Specialty Start Date End Date Elsewhere, Pcp PCP - General Family Medicine 07/29/17 documented as of this encounter
--- OUTSIDE RECORDS SUMMARY | 2022-05-17 19:03 | XMS_ITS | Encounter Summary ---
:1955 Author Organization [facility] Address [address] [place] [address] Care Team Providers Name Role Phone Elsewhere, Pcp Primary Care Provider Unavailable Reason for Visit Reason Comments Transplant Recipient Evaluation Appointment Request (Routine) - Closed Specialty Diagnoses / Procedures Referred By Contact Refer red To Contact Transplant Kidney Diagnoses [facility] Zoroastrianism Pancreas Procedures [place] [address] [place] [address] Phone: Referral ID Status Reason Start Date Expiration Date Visits Requ ested Visits Authorized [id number] Closed 02/11/2018 02/11/2019 1 1 Encounter Details Date Type Department Care Team Description 03/25/2018 Comprehensive Visit Curt Olivo, Pretransplant Center for Neo R, Recipient Transplantation and M.D. 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 He has not had a [place] kidney biopsy. His kidneys are on the small size with echogenic parenchyma. 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 P5. CT CT Job ID: [id number]/[facility] documented in this encounter Plan of Treatment Upcoming Encounters Date Type Specialty Care Team Description 05/22/2022 Appointment Laboratory Medicine Angélica Granger P.A.-C. [address] [place] [phone] 05/23/2022 Clinical Admitting/Central Communication Scheduling 05/27/2022 Comprehensive Visit Orthopedic Surgery Markus Sams M.D., Ph.D. [address] [place] [phone] 05/29/2022 Office Visit Otorhinolaryngology Dex Matta APRN, C.N.P., M.S.N. [address] [place] [phone] 05/29/2022 Office Visit Otorhinolaryngology Nadeem Maradiaga, P.A.-C., M.S. [address] [place] [phone] 05/31/2022 Appointment Radiology Guilherme Matt MPAS, P.Murtaza.Marie., M.S. [address] [place] [phone] 06/05/2022 Appointment Laboratory Medicine Angélica Granger P.A.-C. [address] [place] [phone] 06/19/2022 Appointment Laboratory Angélica Royal P.A.-C. [address] [place] [phone] 07/03/2022 Appointment Laboratory Angélica Royal P.A.-C. [address] [place] [phone] 07/17/2022 Appointment Laboratory Angélica Royal P.A.-C. [address] [place] [phone] 07/31/2022 Appointment Laboratory Angélica Royal P.A.-C. [address] [place] [phone] 08/14/2022 Appointment Laboratory Angélica Royal P.A.-C. [address] [place] [address] [phone] 08/28/2022 Appointment Laboratory Angélica Royal P.A.-C. [address] [place] [phone] documented as of this encounter Visit Diagnoses Diagnosis Pretransplant Recipient Evaluation Exam - Primary documented in this encounter Additional Health Concerns Assessment Noted Time PHQ-9 Depression Total Score: 5 03/24/2018 9:15 PM CDT documented as of this encounter Care Teams Youth Development Professional Relationship Specialty Start Date End Date Elsewhere, Pcp PCP - General Family Medicine 07/29/17 documented as of this encounter
--- OUTSIDE RECORDS SUMMARY | 2022-05-17 19:03 | XMS_ITS | Encounter Summary ---
:1955 Author Organization [facility] Address [address] [place] [address] Care Team Providers Name Role Phone Elsewhere, Pcp Primary Care Provider Unavailable Reason for Visit Transplant (Routine) - Closed Specialty Diagnoses / Procedures Referred By Contact Refer red To Contact Transplant Surgery / Diagnoses Pretransplant Recipient Evaluation Exam Chronic Kidney Disease Stage 4 Glomerular Filtration Rate 15-29 (HCC) [facility] M.DDemetrius [address] [place] [phone] Referral ID Status Reason Start Date Expiration Date Visits Requ ested Visits Authorized [id number] Closed 02/16/2018 02/16/2019 1 1 Encounter Details Date Type Department Care Team Description 03/25/2018 Clinical Support Monserrat Richmond M.D. [address] [place] [phone] Pretransplant Recipient Evaluation Exam; Milka for Antionette Cloud L.I.C.S.W., M.S.W. 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 - 03/25/2018 3:00 PM CDT Transplant Psychosocial Assessment SUBJECTIVE DEMOGRAPHIC INFORMATION Referral Source: Provider/Service Referral Name: Dr. Bowman, Kidney Transplant Team Person(s) present during interview: Patient Primary care clinic and provider: Primary Care Physician Primary Language: Azeri Pediatric Physical Therapist services used: Pediatric Physical Therapist Services Used: No Legal Decision Maker: Self [...] reporters and they reported understanding. Role of commissary worker: Identified the role of the transplant group social worker. Limits of confidentiality reviewed: Explained that everything we discussed is confidential and the way the information isshared among the multidisciplinary team members. Where was the interview: [facility] Compliance:no concerns Knowledge about [...] by his biological mother and father in [place], [place]. His mother is living at 87 and his father is . He has one older sister who at a young age and one youngersister who lives in [place]. Patient reports a close relationship with his [...] Work history/Type of Work: patient retired from [employer] 2009 and recently sold apartment property. history: No background Legal history: Patient denies current legal issues Hobbies: patient enjoys riding motorcycle and spending time with friends and family. Spiritual practices/Mu-Ism/Culture: Hoahaoism, Psychosocial Risk Factors impacting the patient: Psychosocial [...] understands the potential need to stay in [place] 2-4 weeks post transplant but is hopeful he will be able to return home earlier since he is local. He is provided lodging resources. FINANCES/INSURANCE Primary insurance: MEDICARE A AND B Secondary insurance: [employer] Does patient have a benefit for travel/lodging/meals? No Household information ?? Number of persons in household: 1 ?? Type of housing: Own Source of household income: Social Security long term income: Monthly income unknown Loss of income/Change in income: none Financial supports/resources: none Pharmacy [facility] [id number] [place] [address] - [address] AT [facility] [address] [facility] [phone] Pharmacy benefits education: Patient was educated and advised to determine the projected range of out of pocket expenses for post-transplant medications, depending on the type of pharmacy coverage provided by insurance, and notify the group social worker regarding affordability. ADVANCE DIRECTIVES OBJECTIVE MENTAL HEALTH Psychosocial Risks - The Clerk Cashier advised the patient of the psychosocial risks [...] is a 62 year old male from [place], [place] who presents today as part of [...] groups. 8. Provided patient/family with folder of [facility] educational materials related to transplantation. 9. Discussed and provided psychoeducation on potential for mood changes following transplantation. 10. Reinforced the importance of careful attention to medical advice. 11. Reinforced the importance of a secure caregiving and travel plan. PLAN 1. Patient was provided my business card and encouraged to call if questions or concerns arise. 2. commissary worker will review the patient's strengths and/or risk factors at the upcoming transplant selection conference. 3. commissary worker will continue to follow throughout the [...] Laboratory Medicine Angélica Granger P.A.-C. [address] [place] [phone] 05/23/2022 Clinical Admitting/Central Communication Scheduling 05/27/2022 Comprehensive Visit Orthopedic Surgery Markus Sams M.D., Ph.D. [address] [place] [phone] 05/29/2022 Office Visit Otorhinolaryngology Dex Matta APRN, C.N.P., M.S.N. [address] [place] [phone] 05/29/2022 Office Visit Otorhinolaryngology Nadeem Maradiaga P.A.-C., M.S. [address] [place] [phone] 05/31/2022 Appointment Radiology Guilherme Matt MPAS, Edmundo, M.S. [address] [place] [phone] 06/05/2022 Appointment Laboratory Medicine Angélica Granger P.A.-C. [address] [place] [phone] 06/19/2022 Appointment Laboratory Medicine Angélica Granger P.A.-C. [address] [place] [phone] 07/03/2022 Appointment Laboratory Medicine Angélica Granger P.A.-C. [address] [place] [phone] 07/17/2022 Appointment Laboratory Medicine Angélica Granger P.A.-C. [address] [place] [phone] 07/31/2022 Appointment Laboratory Medicine Angélica Granegr P.A.-C. [address] [place] [phone] 08/14/2022 Appointment Laboratory Medicine Angélica Granger P.A.-C. [address] [place] [phone] 08/28/2022 Appointment Laboratory Medicine Angélica Granger P.A.-C. [address] [place] [phone] documented as of this encounter Visit Diagnoses Diagnosis Pretransplant Recipient Evaluation Exam Chronic Kidney Disease Stage 4 Glomerula r Filtration Rate 15-29 (HCC) documented in this encounter Additional Health Concerns Assessment Noted Time PHQ-9 Depression Total Score: 5 03/24/2018 9:15 PM CDT documented as of this encounter Care Teams Inbound Telemarketer Relationship Specialty Start Date End Date Elsewhere, Pcp PCP - General Family Medicine 07/29/17 documented as of this encounter
--- OUTSIDE RECORDS SUMMARY | 2022-05-17 19:03 | XMS_ITS | Encounter Summary ---
:[address] [facility] Address [address] [place] [address] Care Team Providers Name Role Phone Elsewhere, Pcp Primary Care Provider Unavailable Reason for Referral Outpatient (Routine) - Closed Specialty Diagnoses / Procedures Referred By Contact Refer red To Contact Transplant Rst [facility] [phone] Referral ID Status Reason Start Date Expiration Date Visits Requ ested Visits Authorized [id number] Closed 02/16/2018 02/16/2019 1 1 ransplant (Routine) - Authorized Specialty Diagnoses / Procedures Referred By Contact Refer red To Contact [facility] Diagnoses [facility] [address] [place] [phone] Referral ID Status Reason Start Date Expiration Date Visits V isits Requested Authorized [id number] Authorized 02/16/2018 99 99 Reason for Visit Reason Onset Date Comments Pre-visit Testing Orders 02/16/2018 Encounter Details Date Type Department Care Team Description 02/16/2018 Clinical Curt Garces Prescheduling, Pre- visit Testing Communication Center for Provider Orders Transplantation and Clinical Regeneration in [place], [place] [address] [place] [phone] Social History Tobacco Use Types Packs/Day Years [...] Date Recorded 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 [address] [place] [phone] 05/23/2022 Clinical Admitting/Central Communication Scheduling 05/27/2022 Comprehensive Visit Orthopedic Surgery Markus Sams M.D., Ph.D. [address] [place] [phone] 05/29/2022 Office Visit Otorhinolaryngology Dex Matta APRN, C.N.P., M.S.N. [address] [place] [phone] 05/29/2022 Office Visit Otorhinolaryngology Nadeem Maradiaga, Edmundo, M.S. [address] [place] [phone] 05/31/2022 Appointment Radiology Guilherme Matt MPAS, P.A.-C., M.S. [address] [place] [phone] 06/05/2022 Appointment Laboratory Medicine Angélica Granger P.A.-C. [address] [place] [phone] 06/19/2022 Appointment Laboratory Medicine Angélica Garnger P.A.-C. [address] [place] [phone] 07/03/2022 Appointment Laboratory Medicine Angélica Granger P.A.-C. [address] [place] [phone] 07/17/2022 Appointment Laboratory Medicine Angélica Granger P.A.-C. [address] [place] [phone] 07/31/2022 Appointment Laboratory Medicine Angélica Granger P.A.-C. [address] [place] [phone] 08/14/2022 Appointment Laboratory Medicine Angélica Granger P.A.-C. [address] [place] [phone] 08/28/2022 Appointment Laboratory Medicine Angélica Granger P.A.-C. [address] [place] [phone] Scheduled Referrals Name Type Priority Associated Order Schedule Diagnoses Transplant referral Outpatient Referral Routine Failure Renal Ordered: authorization and 02/16/2018 benefits check Recipient Outpatient Referral Routine Expected : Pre-Transplant Kidney 2017 / pancreas office (Sharria chris), visit (clinic) Expires: 02/16/2021 documented as of this encounter Visit Diagnoses Diagnosis Failure Renal - Primary documented in this encounter Additional Health Concerns Assessment Noted Time PHQ-9 Depression Total Score: 1 08/26/2017 10:50 AM CS T documented as of this encounter Care Teams Signalling And Communications Engineer Relationship Specialty Start Date End Date Elsewhere, Pcp PCP - General Family Medicine 07/29/17 documented as of this encounter
--- OUTSIDE RECORDS SUMMARY | 2022-05-17 19:03 | XMS_ITS | Encounter Summary ---
:1955 Author Organization [facility] Address [address] [place] [address] Care Team Providers Name Role Phone Elsewhere, Pcp Primary Care Provider Unavailable Encounter Details Date Type Department Care Team Description 03/25/2018 Hospital Encounter Department of Neo Bowman Pret nsplant Recipient Evaluation Exam; Radiology, Russel Millard M.D. 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 [address] [place] [phone] 05/23/2022 Clinical Admitting/Central Communication Scheduling 05/27/2022 Comprehensive Visit Orthopedic Surgery Markus Sams M.D., Ph.D. [address] [place] [phone] 05/29/2022 Office Visit Otorhinolaryngology Dex Matta APRN, C.N.P., M.S.N. [address] [place] [phone] 05/29/2022 Office Visit Otorhinolaryngology Nadeem Maradiaga, PEdgar.Marie., M.S. [address] [place] [phone] 05/31/2022 Appointment Radiology Guilherme Matt MPAS, P.Tom., M.S. [address] [place] [phone] 06/05/2022 Appointment Laboratory Medicine Angélica Granger P.A.-C. [address] [place] [address] [phone] 06/19/2022 Appointment Laboratory Medicine Angélica Granger P.A.-C. [address] [place] [phone] 07/03/2022 Appointment Laboratory Medicine Angélica Granger P.A.-C. [address] [place] [phone] 07/17/2022 Appointment Laboratory Medicine Angélica Granger P.A.-C. [address] [place] [phone] 07/31/2022 Appointment Laboratory Medicine Angélica Granger P.A.-C. [address] [place] [phone] 08/14/2022 Appointment Laboratory Medicine Angélica Granger P.A.-C. [address] [place] [phone] 08/28/2022 Appointment Laboratory Angélica Royal P.A.-C. [address] [place] [phone] documented as of this encounter Procedures Procedure [...] as of this encounter Care Teams Speech Teacher Relationship Specialty Start Date End Date Elsewhere, Pcp PCP - General Family Medicine 07/29/17 documented as of this encounter
--- OUTSIDE RECORDS SUMMARY | 2022-05-17 19:04 | XMS_ITS | Encounter Summary ---
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 [address] [place] [phone] 05/23/2022 Clinical Admitting/Central Communication Scheduling 05/27/2022 Comprehensive Visit Orthopedic Surgery Markus Sams M.D., Ph.D. [address] [place] [phone] 05/29/2022 Office Visit Otorhinolaryngology Dex Matta APRN, C.N.P., M.S.N. [address] [place] [phone] 05/29/2022 Office Visit Otorhinolaryngology Nadeem Maradiaga, P.Murtaza.-Arley., M.S. [address] [place] [phone] 05/31/2022 Appointment Radiology Guilherme Matt, RASTA, PMaryanne., M.S. [address] [place] [phone] 06/05/2022 Appointment Laboratory Medicine Angélica Granger P.A.-C. [address] [place] [phone] 06/19/2022 Appointment Laboratory Medicine Angélica Granger P.A.-C. [address] [place] [phone] 07/03/2022 Appointment Laboratory Medicine Angélica Granger P.A.-C. [address] [place] [phone] 07/17/2022 Appointment Laboratory Medicine Angélica Granger P.A.-C. [address] [place] [phone] 07/31/2022 Appointment Laboratory Medicine Angélica Granger P.A.-C. [address] [place] [phone] 08/14/2022 Appointment Laboratory Medicine Angélica Granger P.A.-C. [address] [place] [phone] 08/28/2022 Appointment Laboratory Medicine Angélica Granger P.A.-C. [address] [place] [phone] documented as of this encounter Visit Diagnoses Not on filedocumented in this encounter Additional Health Concerns Assessment Noted Time PHQ-9 Depression Total Score: 1 08/26/2017 10:50 AM CS T documented as of this encounter Care Teams Ampoule Filler Relationship Specialty Start Date End Date Elsewhere, Pcp PCP - General Family Medicine 07/29/17 documented as of this encounter
--- OUTSIDE RECORDS SUMMARY | 2022-05-17 19:04 | XMS_ITS | Encounter Summary ---
:1955 Author Organization [facility] Address [address] [place] [address] Care Team Providers Name Role Phone Elsewhere, Pcp Primary Care Provider Unavailable Reason for Visit Reason Comments Hypertension Outpatient (Routine) - Closed Specialty Diagnoses / Procedures Referred By Contact Refer red To Contact Nephrology and Diagnoses Hypertension Essential Primary [facility] M[facility] [address] [place] [phone] Referral ID Status Reason Start Date Expiration Date Visits Requ ested Visits Authorized [id number] Closed 10/21/2017 04/19/2018 1 1 Encounter Details Date Type Department Care Team Description 02/10/2018 Nurse Only Division of Nephrology and Mercedez Wolff M.D. [address] [place] [phone] Hypertension Hypertension in [facility] Ailin Maloney, R.N. 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 He has an appointment with Dr Bailey later today. documented in this encounter Plan of Treatment Upcoming Encounters Date Type Specialty Care Team Description 05/22/2022 Appointment Laboratory Medicine Angélica Granger P.A.-C. [address] [place] [phone] 05/23/2022 Clinical Admitting/Central Communication Scheduling 05/27/2022 Comprehensive Visit Orthopedic Surgery Markus Sams M.D., Ph.D. [address] [place] [address] [phone] 05/29/2022 Office Visit Otorhinolaryngology Dex Matta, RAMONA, C.N.P., M.S.N. [address] [place] [address] [phone] 05/29/2022 Office Visit Otorhinolaryngology Nadeem Maradiaga, PEdgar.-Arley., M.S. [address] [place] [phone] 05/31/2022 Appointment Radiology Guilherme Matt MPAS, Jennifer., M.S. [address] [place] [phone] 06/05/2022 Appointment Laboratory Medicine Angélica Granger P.A.-C. [address] [place] [phone] 06/19/2022 Appointment Laboratory Medicine Angélica Granger P.A.-C. [address] [place] [phone] 07/03/2022 Appointment Laboratory Medicine Angélica Granger P.A.-C. [address] [place] [phone] 07/17/2022 Appointment Laboratory Medicine Angélica Granger P.A.-C. [address] [place] [phone] 07/31/2022 Appointment Laboratory Medicine Angélica Granger P.A.-C. [address] [place] [phone] 08/14/2022 Appointment Laboratory Angélica Royal P.A.-C. [address] [place] [phone] 08/28/2022 Appointment Laboratory Angélica Royal P.A.-C. [address] [place] [phone] documented as of this encounter Visit Diagnoses Diagnosis Hypertension Essential Primary documented in this encounter Additional Health Concerns Assessment Noted Time PHQ-9 Depression Total Score: 1 08/26/2017 10:50 AM CS T documented as of this encounter Care Teams Kelly Machine Operator Relationship Specialty Start Date End Date Elsewhere, Pcp PCP - General Family Medicine 07/29/17 documented as of this encounter
--- OUTSIDE RECORDS SUMMARY | 2022-05-17 19:04 | XMS_ITS | Encounter Summary ---
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 [address] [place] [phone] 05/23/2022 Clinical Admitting/Central Communication Scheduling 05/27/2022 Comprehensive Visit Orthopedic Surgery Markus Sams M.D., Ph.D. [address] [place] [phone] 05/29/2022 Office Visit Otorhinolaryngology Dex Matta APRN, C.N.P., M.S.N. [address] [place] [phone] 05/29/2022 Office Visit Otorhinolaryngology Nadeem Maradiaga, P.A.-Arley., M.S. [address] [place] [phone] 05/31/2022 Appointment Radiology Guilherme Matt MPAS, Edmundo, M.S. [address] [place] [address] [phone] 06/05/2022 Appointment Laboratory Medicine Angélica Granger P.A.-C. [address] [place] [phone] 06/19/2022 Appointment Laboratory Medicine Angélica Granger P.A.-C. [address] [place] [phone] 07/03/2022 Appointment Laboratory Medicine Angélica Granger P.A.-C. [address] [place] [phone] 07/17/2022 Appointment Laboratory Medicine Angélica Granger P.A.-C. [address] [place] [phone] 07/31/2022 Appointment Laboratory Medicine Angélica Granger P.A.-C. [address] [place] [phone] 08/14/2022 Appointment Laboratory Medicine Angélica Granger P.A.-C. [address] [place] [phone] 08/28/2022 Appointment Laboratory Medicine Angélica Granger P.A.-C. [address] [place] [phone] documented as of this encounter Visit Diagnoses [...]
--- OUTSIDE RECORDS SUMMARY | 2022-05-17 19:04 | XMS_ITS | Encounter Summary ---
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 [address] [place] [phone] 05/23/2022 Clinical Admitting/Central Communication Scheduling 05/27/2022 Comprehensive Visit Orthopedic Surgery Markus Sams M.D., Ph.D. [address] [place] [phone] 05/29/2022 Office Visit Otorhinolaryngology Dex Matta APRN, C.N.P., M.S.N. [address] [place] [phone] 05/29/2022 Office Visit Otorhinolaryngology Nadeem Maradiaga, P.A.-Arley., M.S. [address] [place] [address] [phone] 05/31/2022 Appointment Radiology Guilherme Matt MPAS, Jennifer., M.S. [address] [place] [phone] 06/05/2022 Appointment Laboratory Medicine Angélica Granger P.A.-C. [address] [place] [phone] 06/19/2022 Appointment Laboratory Medicine Angélica Granger P.A.-C. [address] [place] [phone] 07/03/2022 Appointment Laboratory Medicine Angélica Granegr P.A.-C. [address] [place] [phone] 07/17/2022 Appointment Laboratory Medicine Angélica Granger P.A.-C. [address] [place] [phone] 07/31/2022 Appointment Laboratory Medicine Angélica Granger P.A.-C. [address] [place] [phone] 08/14/2022 Appointment Laboratory Medicine Angélica Granger P.A.-C. [address] [place] [phone] 08/28/2022 Appointment Laboratory Angélica Royal P.A.-C. [address] [place] [phone] documented as of this encounter Visit Diagnoses Not on filedocumented in this encounter Additional Health Concerns Assessment Noted Time PHQ-9 Depression Total Score: 1 08/26/2017 10:50 AM CS T documented as of this encounter Care Teams Cloud Developer Relationship Specialty Start Date End Date Elsewhere, Pcp PCP - General Family Medicine 07/29/17 documented as of this encounter
--- OUTSIDE RECORDS SUMMARY | 2022-05-17 19:04 | XMS_ITS | Encounter Summary ---
:1955 Author Organization [facility] Address [address] [place] [address] Care Team Providers Name Role Phone Elsewhere, Pcp Primary Care Provider Unavailable Encounter Details Date Type Department Care Team Description 10/29/2017 Hospital Encounter Department of Vanessa Parra Liver Laboratory Medicine RAMONA Draper, C.N .PDemetrius (HCC) and Pathology, [address] [place] [address] in [place], [place] [phone] [place] [address] [place], [place] (Work) [phone] Social History Tobacco Use Types Packs/Day Years [...] at Date Recorded 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 [address] [place] [phone] 05/23/2022 Clinical Admitting/Central Communication Scheduling 05/27/2022 Comprehensive Visit Orthopedic Surgery Markus Sams M.D., Ph.D. [address] [place] [phone] 05/29/2022 Office Visit Otorhinolaryngology Dex Matta APRN, C.N.P., M.S.N. [address] [place] [phone] 05/29/2022 Office Visit Otorhinolaryngology Nadeem Maradiaga, Jennifer., M.S. [address] [place] [phone] 05/31/2022 Appointment Radiology Guilherme Matt, RASTA, PMaryanne., M.S. [address] [place] [address] [phone] 06/05/2022 Appointment Laboratory Medicine Angélica Granger P.A.-C. [address] [place] [phone] 06/19/2022 Appointment Laboratory Medicine Angélica Granger P.A.-C. [address] [place] [phone] 07/03/2022 Appointment Laboratory Medicine Angélica Granger P.A.-C. [address] [place] [phone] 07/17/2022 Appointment Laboratory Medicine Angélica Granger P.A.-C. [address] [place] [phone] 07/31/2022 Appointment Laboratory Medicine Angélica Granger P.A.-C. [address] [place] [phone] 08/14/2022 Appointment Laboratory Medicine Angélica Granger P.A.-C. [address] [place] [phone] 08/28/2022 Appointment Laboratory Angélica Royal P.A.-C. [address] [place] [phone] documented as of this encounter Visit Diagnoses Diagnosis Transplant Liver (HCC) documented in this encounter Additional Health Concerns Assessment Noted Time PHQ-9 Depression Total Score: 1 08/26/2017 10:50 AM CS T documented as of this encounter Care Teams Insurance Agency Owner Relationship Specialty Start Date End Date Elsewhere, Pcp PCP - General Family Medicine 07/29/17 documented as of this encounter
--- OUTSIDE RECORDS SUMMARY | 2022-05-17 19:04 | XMS_ITS | Encounter Summary ---
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 [address] [place] [phone] 05/23/2022 Clinical Admitting/Central Communication Scheduling 05/27/2022 Comprehensive Visit Orthopedic Surgery Markus Sams M.D., Ph.D. [address] [place] [phone] 05/29/2022 Office Visit Otorhinolaryngology Dex Matta APRN, C.N.P., M.S.N. [address] [place] [phone] 05/29/2022 Office Visit Otorhinolaryngology Nadeem Maradiaga, PEdgar.Marie., M.S. [address] [place] [phone] 05/31/2022 Appointment Radiology Guilherme Matt MPAS, Jennifer., M.S. [address] [place] [phone] 06/05/2022 Appointment Laboratory Medicine Angélica Granger P.A.-C. [address] [place] [phone] 06/19/2022 Appointment Laboratory Medicine Angélica Granger P.A.-C. [address] [place] [phone] 07/03/2022 Appointment Laboratory Medicine Angélica Granger P.A.-C. [address] [place] [phone] 07/17/2022 Appointment Laboratory Medicine Angélica Granger P.A.-C. [address] [place] [phone] 07/31/2022 Appointment Laboratory Medicine Angélica Granger P.A.-C. [address] [place] [phone] 08/14/2022 Appointment Laboratory Medicine Angélica Granger P.A.-C. [address] [place] [address] [phone] 08/28/2022 Appointment Laboratory Medicine Angélica Granger P.A.-C. [address] [place] [phone] documented as of this encounter Visit Diagnoses Not on filedocumented in this encounter Additional Health Concerns Assessment Noted Time PHQ-9 Depression Total Score: 1 08/26/2017 10:50 AM CS T documented as of this encounter Care Teams Couture Dressmaker Relationship Specialty Start Date End Date Elsewhere, Pcp PCP - General Family Medicine 07/29/17 documented as of this encounter
--- OUTSIDE RECORDS SUMMARY | 2022-05-17 19:04 | XMS_ITS | Encounter Summary ---
:1955 Author Organization [facility] Address [address] [place] [address] Care Team Providers Name Role Phone Elsewhere, Pcp Primary Care Provider Unavailable Encounter Details Date Type Department Care Team Description 02/10/2018 Hospital Encounter Department of Cheryl Torres osclerosis Renal Artery (HCC); Radiology, Kd Stern M.D. 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 [address] [place] [phone] 05/23/2022 Clinical Admitting/Central Communication Scheduling 05/27/2022 Comprehensive Visit Orthopedic Surgery Markus Sams M.D., Ph.D. [address] [place] [phone] 05/29/2022 Office Visit Otorhinolaryngology Dex Matta APRN, C.N.P., M.S.N. [address] [place] [phone] 05/29/2022 Office Visit Otorhinolaryngology Nadeem Maradiaga, P.Murtaza.-Arley., M.S. [address] [place] [address] [phone] 05/31/2022 Appointment Radiology Guilherme Matt, RASTA, PMaryanne., M.S. [address] [place] [address] [phone] 06/05/2022 Appointment Laboratory Medicine Angélica Granger P.A.-C. [address] [place] [address] [phone] 06/19/2022 Appointment Laboratory Medicine Angélica Granger P.A.-C. [address] [place] [address] [phone] 07/03/2022 Appointment Laboratory Medicine Angélica Granger P.A.-C. [address] [place] [phone] 07/17/2022 Appointment Laboratory Medicine Angélica Granger P.A.-C. [address] [place] [phone] 07/31/2022 Appointment Laboratory Medicine Angélica Granger P.A.-C. [address] [place] [phone] 08/14/2022 Appointment Laboratory Medicine Angélica Granger P.A.-C. [address] [place] [phone] 08/28/2022 Appointment Laboratory Medicine Angélica Granger P.A.-C. [address] [place] [phone] documented as of this encounter Procedures Procedure [...] documented as of this encounter Care Teams Sash Maker Relationship Specialty Start Date End Date Elsewhere, Pcp PCP - General Family Medicine 07/29/17 documented as of this encounter
--- OUTSIDE RECORDS SUMMARY | 2022-05-17 19:04 | XMS_ITS | Encounter Summary ---
:1955 Author Organization [facility] Address [address] [place] [address] Care Team Providers Name Role Phone Elsewhere, Pcp Primary Care Provider Unavailable Reason for Visit Reason Onset Date Comments Communication 02/03/2018 Encounter Details Date Type Department Care Team Description 02/03/2018 Clinical Communication Roshan Muniz [facility] A, M.S.N., Transplantation and Lynn., C.C.T. C. 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 - 02/04/2018 2:26 PM CDT Reviewed with Dr. Reyes. He recommends f/u with Neurology for cognitive testing. documented in this encounter Plan of Treatment Upcoming Encounters Date Type Specialty Care Team Description 05/22/2022 Appointment Laboratory Medicine Angélica Granger P.A.-C. [address] [place] [address] [phone] 05/23/2022 Clinical Admitting/Central Communication Scheduling 05/27/2022 Comprehensive Visit Orthopedic Surgery Markus Sams M.D., Ph.D. [address] [place] [phone] 05/29/2022 Office Visit Otorhinolaryngology Dex Matta APRN, C.N.P., M.S.N. [address] [place] [address] [phone] 05/29/2022 Office Visit Otorhinolaryngology Nadeem Maradiaga P.A.-C., M.S. [address] [place] [phone] 05/31/2022 Appointment Radiology Guilherme Matt MPAS, Edmundo, M.S. [address] [place] [address] [phone] 06/05/2022 Appointment Laboratory Medicine Angélica Granger P.A.-C. [address] [place] [phone] 06/19/2022 Appointment Laboratory Medicine Angélica Granger P.A.-C. [address] [place] [phone] 07/03/2022 Appointment Laboratory Medicine Angélica Granger P.A.-C. [address] [place] [phone] 07/17/2022 Appointment Laboratory Medicine Angélica Granger P.A.-C. [address] [place] [phone] 07/31/2022 Appointment Laboratory Medicine Angélica Granger P.A.-C. [address] [place] [phone] 08/14/2022 Appointment Laboratory Medicine Angélica Granger P.A.-C. [address] [place] [phone] 08/28/2022 Appointment Laboratory Medicine Angélica Granger P.A.-C. [address] [place] [phone] documented as of this encounter Visit Diagnoses Not on filedocumented in this encounter Additional Health Concerns Assessment Noted Time PHQ-9 Depression Total Score: 1 08/26/2017 10:50 AM CS T documented as of this encounter Care Teams Bus And Trolley Inspecting Dispatcher Relationship Specialty Start Date End Date Elsewhere, Pcp PCP - General Family Medicine 07/29/17 documented as of this encounter
--- OUTSIDE RECORDS SUMMARY | 2022-05-17 19:04 | XMS_ITS | Encounter Summary ---
:1955 Author Organization [facility] Address [address] [place] [address] Care Team Providers Name Role Phone Elsewhere, Pcp Primary Care Provider Unavailable Reason for Referral Outpatient (Routine) - Closed Specialty Diagnoses / Procedures Referred By Contact Refer red To Contact Neurology Diagnoses Loss Memory Short Term Transplant Liver (HCC) Otoniel Linares M.D. [facility] [address] [place] [phone] Referral ID Status Reason Start Date Expiration Date Visits Requ ested Visits Authorized [id number] Closed 02/04/2018 02/04/2019 1 1 Encounter Details Date Type Department Care Team Description 02/04/2018 Orders Only Roshan Muniz Loss Memory Short Term (Primary Dx); [facility] for Transplantation A, M.S.N., T ransplant Liver (HCC) and Clinical Regeneration [place], C.C.T.C. in [facility] [address] [place] [address] [place] [phone] Social History Tobacco Use Types Packs/Day Years [...] 12/15/2021 organizations such as yazidism groups, unions, [employer]Edgem[employer] Pharm[employer] or athletic groups, or school groups? 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 [address] [place] [phone] 05/23/2022 Clinical Admitting/Central Communication Scheduling 05/27/2022 Comprehensive Visit Orthopedic Surgery Markus Sams M.D., Ph.D. [address] [place] [phone] 05/29/2022 Office Visit Otorhinolaryngology Dex Matta APRN, C.N.P., M.S.N. [address] [place] [phone] 05/29/2022 Office Visit Otorhinolaryngology Nadeem Maradiaga P.A.-C., M.S. [address] [place] [phone] 05/31/2022 Appointment Radiology Guilherme Matt MPAS, P.A.-C., M.S. [address] [place] [phone] 06/05/2022 Appointment Laboratory Medicine Angélica Granger P.A.-C. [address] [place] [phone] 06/19/2022 Appointment Laboratory Medicine Angélica Granger P.A.-C. [address] [place] [phone] 07/03/2022 Appointment Laboratory Medicine Angélica Granger P.A.-C. [address] [place] [phone] 07/17/2022 Appointment Laboratory Medicine Angélica Granger P.A.-C. [address] [place] [phone] 07/31/2022 Appointment Laboratory Medicine Angélica Granger P.A.-C. [address] [place] [phone] 08/14/2022 Appointment Laboratory Medicine Angélica Granger P.A.-C. [address] [place] [phone] 08/28/2022 Appointment Laboratory Medicine Angélica Granger P.A.-C. [address] [place] [phone] Scheduled Referrals Name Type Priority Associated Diagnoses Order S chedule Neurology - Outpatient Referral Routine Loss Memory Short Exp ected: Cognitive and Term 02/04/2018 dementia consult Transplant Liver (Approx imate), (clinic) (HCC) Expires: 02/04/2019 documented as of this encounter Results (ABNORMAL) Creatinine Clearance, Serum and 24 hour Urine (02/24/2018 11:00 AM CDT) Patholo gist Method Time Signature Creatinine 2.71 (H) 0.74 - 02/24/2018 [facility] 1.35 1:45 PM CDT LABORATORIES - mg/dL [facility] eGFR-Non 24 (L) >=60 02/24/2018 [facility] Black/ mL/min/BS 1:[address] [facility] A [facility] Comment: ----ADDITIONAL INFORMATION---- Estimated GFR calculated using the 2009 CKD_EPI creatinine equation. eGFR-Black/ 28 (L) >=60 mL/min/BSA 02/24/2018 1:45 [facility] CDT LABORATORIES [facility] Comment: ----ADDITIONAL INFORMATION---- Estimated GFR calculated using the 2009 CKD_EPI creatinine equation. Creatinine, U 29 mg/dL 02/24/2018 7:40 PM [facility] IN CDT LABORATORIES - [facility] S Time 24 h 02/24/2018 2:17 PM [facility] CDT LABORATORIES [facility] S Volume 3503 mL 02/24/2018 2:17 PM [facility] CDT LABORATORIES [facility] S Creatinine Clearance 23 (L) 77 - 160 02/24/2018 7:40 PM [facility] mL/min/BSA CDT LABORATORIES [facility] Specimen Anatomical Collection Method Collection Time Receive d Time (Source) Location / / Volume Laterality Blood (Urine, 24 02/24/2018 11:00 2 018 1:03 Hours) AM CDT PM CDT Narrative [facility] - 02/24/2018 7:40 PM CDT Specimen Information: Specimen ID: [id number] Specimen Type: Blood Specimen Collection Start Date: 8 12:55 PM Specimen Received Date: 02/24/2018 ??1:03 PM Specimen ID: [id number] Specimen Type: Urine Specimen Collection Start Date: 8 11:00 AM Specimen Received Date: 02/24/2018 ??2:17 PM Otoniel Linares M.D. LAB URINE ORDERABLES Performing Organization Address City/[facility] Code Phon e Number [facility] LABORATORIES - [address] (ABNORMAL) Thyroid Function [place] (02/10/2018 7:49 AM CDT) [facility] Method Time Signature TSH, Sensitive 4.6 (H) 0.3 - 4.2 02/10/2018 [facility] mIU/L 8:46 AM CDT LABORATORIES - [facility] Specimen Anatomical Collection Method Collection Time Receive d Time (Source) Location / / Volume Laterality Blood (Blood, 02/10/2018 7:49 AM 02/11/20 18 7:59 Venous) CDT AM CDT Otoniel Linares M.D. LAB BLOOD ADD-ON Performing Organization Address [facility] Phon e Number [facility] LABORATORIES - [address] [place] [phone] [facility] (ABNORMAL) Vitamin B12 Assay (02/10/2018 7:49 AM CDT) [facility] Method Time Signature Vitamin B12 1154 (H) 180 - 914 02/10/2018 [facility] Assay, S ng/L 9:15 AM CDT LABORATORIES - [facility] Specimen Anatomical Collection Method Collection Time Receive d Time (Source) Location / / Volume Laterality Blood (Blood, 02/10/2018 7:49 AM 02/11/20 18 7:59 Venous) CDT AM CDT Otoniel Linares M.D. LAB BLOOD ADD-ON Performing Organization Address City/[facility] Phon e Number [facility] LABORATORIES - [address] [place] [phone] [facility] documented in this encounter Visit Diagnoses Diagnosis Loss Memory Short Term - Primary Transplant Liver (HCC) documented in this encounter Additional Health Concerns Assessment Noted Time PHQ-9 Depression Total Score: 1 08/26/2017 10:50 AM CS T documented as of this encounter Care Teams Blister Rust Eradicator Relationship Specialty Start Date End Date Elsewhere, Pcp PCP - General Family Medicine 07/29/17 documented as of this encounter
--- OUTSIDE RECORDS SUMMARY | 2022-05-17 19:04 | XMS_ITS | Encounter Summary ---
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) [facility] and Procedures PSY Neuropsychology testing [facility] [address] [place] [phone] Referral ID Status Reason Start Date Expiration Date Visits Requ ested Visits Authorized [id number] Closed 02/06/2018 02/06/2019 1 1 Encounter Details Date Type Department Care Team Description 02/06/2018 Orders Only Otoniel Julio or [facility] 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 [address] [place] [phone] 05/23/2022 Clinical Admitting/Central Communication Scheduling 05/27/2022 Comprehensive Visit Orthopedic Surgery Markus Sams M.D., Ph.D. [address] [place] [phone] 05/29/2022 Office Visit Otorhinolaryngology Dex Matta APRN, C.N.P., M.S.N. [address] [place] [phone] 05/29/2022 Office Visit Otorhinolaryngology Nadeem Maradiaga P.A.-Arley., M.S. [address] [place] [phone] 05/31/2022 Appointment Radiology Guilherme Matt MPAS, P.A.-C., M.S. [address] [place] [phone] 06/05/2022 Appointment Laboratory Medicine Angélica Granger P.A.-C. [address] [place] [phone] 06/19/2022 Appointment Laboratory Medicine Angélica Granger P.A.-C. [address] [place] [phone] 07/03/2022 Appointment Laboratory Medicine Angélica Granger P.A.-C. [address] [place] [phone] 07/17/2022 Appointment Laboratory Medicine Angélica Granger P.A.-C. [address] [place] [phone] 07/31/2022 Appointment Laboratory Medicine Angélica Granger P.A.-C. [address] [place] [phone] 08/14/2022 Appointment Laboratory Medicine Angélica Granger P.A.-C. [address] [place] [phone] 08/28/2022 Appointment Laboratory Medicine Angélica Granger P.A.-C. [address] [place] [phone] documented as of this encounter Results (ABNORMAL) CBC no call back, reflex T/S HGB <8 (02/10/2018 7:49 AM CDT) [facility] gist Method Time Signature Hemoglobin 12.2 (L) 13.2 - 02/10/2018 [facility] 16.6 g/dL 8:14 AM CDT LABORATORIES - [facility] Hematocrit 36.5 (L) 38.3 - 02/10/2018 [facility] 48.6 % 8:14 AM CDT [facility] - [facility] Erythrocytes 3.93 (L) 4.35 - 02/10/2018 [facility] 5.65 8:14 AM CDT LABORATORIES - x10(12)/L [facility] MCV 92.9 78.2 - 02/10/2018 [facility] 97.9 fL 8:14 AM CDT [facility] - [facility] RBC Distrib 12.4 11.8 - 02/10/2018 [facility] Width 14.5 % 8:14 AM CDT [facility] - [facility] Platelet Count 172 135 - 317 02/10/2018 [facility] x10(9)/L 8:14 AM CDT [facility] - [facility] Leukocytes 3.7 3.4 - 9.6 02/10/2018 [facility] x10(9)/L 8:14 AM CDT [facility] - [facility] Neutrophils 1.67 1.56 - 02/10/2018 [facility] 6.45 8:14 AM CDT LABORATORIES - x10(9)/L [facility] Lymphocytes 1.51 0.95 - 02/10/2018 [facility] 3.07 8:14 AM CDT LABORATORIES - x10(9)/L [facility] Monocytes 0.42 0.26 - 02/10/2018 [facility] 0.81 8:14 AM CDT LABORATORIES - x10(9)/L [facility] Eosinophils 0.11 0.03 - 02/10/2018 [facility] 0.48 8:14 AM CDT LABORATORIES - x10(9)/L [facility] Basophils <0.03 0.01 - 02/10/2018 [facility] 0.08 8:14 AM CDT LABORATORIES - x10(9)/L [facility] Specimen Anatomical Collection Method Collection Time Receive d Time (Source) Location / / Volume Laterality Blood (Blood, 02/10/2018 7:49 AM 02/11/20 18 8:00 Venous) CDT AM CDT Otoniel Linares M.D. 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
--- OUTSIDE RECORDS SUMMARY | 2022-05-17 19:04 | XMS_ITS | Encounter Summary ---
:1955 Author Organization [facility] Address [address] [place] [address] Care Team Providers Name Role Phone Elsewhere, Pcp Primary Care Provider Unavailable Encounter Details Date Type Department Care Team Description 01/19/2018 Orders Only Danita Fields Liver (HCC) (Primary Dx); [facility] for M, M.S.N., R.N. 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 [address] [place] [phone] 05/23/2022 Clinical Admitting/Central Communication Scheduling 05/27/2022 Comprehensive Visit Orthopedic Surgery Markus Sams M.D., Ph.D. [address] [place] [phone] 05/29/2022 Office Visit Otorhinolaryngology Dex Matta, RAMONA, C.N.P., M.S.N. [address] [place] [phone] 05/29/2022 Office Visit Otorhinolaryngology Nadeem Maradiaga, P.A.-C., M.S. [address] [place] [phone] 05/31/2022 Appointment Radiology Guilherme Matt MPAS, P.Murtaza.-Arley., M.S. [address] [place] [phone] 06/05/2022 Appointment Laboratory Medicine Angélica Granger P.A.-C. [address] [place] [phone] 06/19/2022 Appointment Laboratory Medicine Angélica Granger P.A.-C. [address] [place] [phone] 07/03/2022 Appointment Laboratory Medicine Angélica Granger P.A.-C. [address] [place] [phone] 07/17/2022 Appointment Laboratory Medicine Angélica Granger P.A.-C. [address] [place] [phone] 07/31/2022 Appointment Laboratory Medicine Angélica Granger P.A.-C. [address] [place] [phone] 08/14/2022 Appointment Laboratory Medicine Angélica Granger P.A.-C. [address] [place] [phone] 08/28/2022 Appointment Laboratory Medicine Angélica Granger P.A.-C. [address] [place] [phone] documented as of this encounter Results (ABNORMAL) Tacrolimus Level (02/10/2018 7:49 AM CDT) P athologist Signature Tacrolimus, B 2.6 (L) 5.0-15.0 02/10/2018 [facility] (Trough) 12:[address] ng/mL [...] performa nce characteristics determined by [facility] in a manner consistent with CLIA requirements. [...] [place] [address] [place], [place] [address] [facility] (ABNORMAL) CMP (Comprehensive Metabolic Panel) (02/10/2018 7:49 AM CDT) [facility] Method Time Signature Potassium, S 3.6 3.6 - 5.2 02/10/2018 [facility] mmol/L 8:46 AM CDT LABORATORIES - [facility] Sodium, S 138 135 - 145 02/10/2018 [facility] mmol/L 8:46 AM CDT LAB[facility]ATORIES - [facility] Chloride, S 98 98 - 107 02/10/2018 [facility] mmol/L 8:46 AM CDT LABORATORIES - [facility] Bicarbonate, S 28 22 - 29 02/10/2018 [facility] mmol/L 8:46 AM CDT LAB[facility]ATORIES - [facility] Anion Gap 12 7 - 15 02/10/2018 [facility] 8:46 AM CDT [facility]ATORIES - [facility] BUN (Blood 53 (H) 8 - 24 02/10/2018 [facility] Urea mg/dL 8:46 AM CDT LABORATORIES - Nitrogen), S [facility] Creatinine 2.66 (H) 0.74 - 02/10/2018 [facility] 1.35 8:46 AM CDT LABORATORIES - mg/dL [facility] eGFR-Non 24 (L) >=60 02/10/2018 [facility] Black/ mL/min/BS 8:46 AM CDT LABORATORIES - Citizen Of [place] A [facility] Comment: ----ADDITIONAL INFORMATION---- Estimated GFR calculated using the 2009 CKD_EPI creatinine equation. eGFR-Black/ 28 (L) >=60 mL/min/BSA 02/10/2018 8:46 [facility] Citizen [place] AM CDT LABORATORIES - [facility] Comment: ----ADDITIONAL INFORMATION---- Estimated GFR calculated using the 2009 CKD_EPI creatinine equation. Calcium, Total, S 8.8 8.8 - 10.2 02/10/2018 8:46 AM [facility] mg/dL CDT LABORATORIES - [facility] Glucose, S 118 70 - 140 mg/dL 02/10/2018 8:46 AM [facility] Protein, Total, S 6.4 6.3 - 7.9 g/dL 02/10/2018 8:46 A M [facility] Albumin, S 4.2 3.5 - 5.0 g/dL 02/10/2018 8:46 AM [facility] - [facility] Aspartate 19 8 - 48 U/L 02/10/2018 8:46 AM [facility] Aminotransferase (AST), S T LABO RATORIES - [facility] Alkaline Phosphatase, S 71 45 - 115 U/L 02/10/2018 8: 46 AM [facility] Alanine Aminotransferase 17 7 - 55 U/L 02/10/2018 8:4 6 AM [facility] (ALT), S [facility] Bilirubin, Total, S 0.4 <=1.2 mg/dL 02/10/2018 8:46 AM [facility] Specimen Anatomical Collection Method Collection Time Receive d Time (Source) Location / / Volume Laterality Blood (Blood, 02/10/2018 7:49 AM 02/11/20 18 7:59 Venous) CDT AM CDT Jaxson Reyes M.D. LAB BLOOD ADD-ON Performing Organization Address City/State/ZIP Code Phon e Number [facility]IES - 200 [place] [address] [address] [facility] documented in this encounter Visit Diagnoses Diagnosis Transplant Liver (HCC) - Primary Medication Therapy Customer Program Specialist Not Anticoa gulant documented in this encounter Additional Health Concerns Assessment Noted Time PHQ-9 Depression Total Score: 1 08/26/2017 10:50 AM CS T documented as of this encounter Care Teams Marble Supervisor Relationship Specialty Start Date End Date Elsewhere, Pcp PCP - General Family Medicine 07/29/17 documented as of this encounter
--- OUTSIDE RECORDS SUMMARY | 2022-05-17 19:04 | XMS_ITS | Encounter Summary ---
:1955 Author Organization [facility] Address [address] [place] [address] Care Team Providers Name Role Phone Elsewhere, Pcp Primary Care Provider Unavailable Reason for Visit Reason Comments Med Refill Encounter Details Date Type Department Care Team Description 12/15/2017 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 [address] [place] [phone] 05/23/2022 Clinical Admitting/Central Communication Scheduling 05/27/2022 Comprehensive Visit Orthopedic Surgery Markus Sams M.D., Ph.D. [address] [place] [phone] 05/29/2022 Office Visit Otorhinolaryngology Dex Matta APRN, C.N.P., M.S.N. [address] [place] [phone] 05/29/2022 Office Visit Otorhinolaryngology Nadeem Maradiaga, P.A.-C., M.S. [address] [place] [phone] 05/31/2022 Appointment Radiology Guilherme Matt MPAS, P.Murtaza.Marie., M.S. [address] [place] [phone] 06/05/2022 Appointment Laboratory Medicine Angélica Granger P.A.-C. [address] [place] [phone] 06/19/2022 Appointment Laboratory Medicine Angélica Granger P.A.-C. [address] [place] [phone] 07/03/2022 Appointment Laboratory Medicine Angélica Granger P.A.-C. [address] [place] [phone] 07/17/2022 Appointment Laboratory Medicine Angélica Granger P.A.-C. [address] [place] [phone] 07/31/2022 Appointment Laboratory Medicine Angélica Granger P.A.-C. [address] [place] [phone] 08/14/2022 Appointment Laboratory Angélica Royal P.A.-C. [address] [place] [phone] 08/28/2022 Appointment Laboratory Angélica Royal P.A.-C. [address] [place] [phone] documented as of this encounter Visit Diagnoses Diagnosis Transplant Liver (HCC) - Primary documented in this encounter Additional Health Concerns Assessment Noted Time PHQ-9 Depression Total Score: 1 08/26/2017 10:50 AM CS T documented as of this encounter Care Teams Laboratory Chief Relationship Specialty Start Date End Date Elsewhere, Pcp PCP - General Family Medicine 07/29/17 documented as of this encounter
--- OUTSIDE RECORDS SUMMARY | 2022-05-17 19:04 | XMS_ITS | Encounter Summary ---
:1955 Author Organization [facility] Address [address] [place] [address] Care Team Providers Name Role Phone Elsewhere, Pcp Primary Care Provider Unavailable Reason for Visit Reason Comments Med Refill Encounter Details Date Type Department Care Team Description 02/04/2018 Refill Division of Nephrology and Idalmis Boswell, RDemetriusNDemetrius Med Refill Hypertension in [place], [facility] [address] [place], [place] 200 [address] [facility] [address] [place] [address] [phone] Social History Tobacco Use Types Packs/Day Years [...] Date Recorded 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 - 02/04/2018 1:41 PM CDT Prescription forwarded to provider for approval. Outside RN protocol due to historical entry. documented in this encounter Plan of Treatment Upcoming Encounters Date Type Specialty Care Team Description 05/22/2022 Appointment Laboratory Medicine Angélica Granger P.A.-C. [address] [place] [phone] 05/23/2022 Clinical Admitting/Central Communication Scheduling 05/27/2022 Comprehensive Visit Orthopedic Surgery Markus Sams M.D., Ph.D. [address] [place] [phone] 05/29/2022 Office Visit Otorhinolaryngology Dex Matta APRN, C.N.P., M.S.N. [address] [place] [address] [phone] 05/29/2022 Office Visit Otorhinolaryngology Nadeem Maradiaga, P.Murtaza.-Arley., M.S. [address] [place] [phone] 05/31/2022 Appointment Radiology Guilherme Matt, RASTA, PEdgar.Marie., M.S. [address] [place] [phone] 06/05/2022 Appointment Laboratory Medicine Angélica Granger P.A.-C. [address] [place] [phone] 06/19/2022 Appointment Laboratory Medicine Angélica Granger P.A.-C. [address] [place] [phone] 07/03/2022 Appointment Laboratory Medicine Angélica Granger P.A.-C. [address] [place] [phone] 07/17/2022 Appointment Laboratory Medicine Angélica Granger P.A.-C. [address] [place] [phone] 07/31/2022 Appointment Laboratory Medicine Angélica Granger P.A.-C. [address] [place] [address] [phone] 08/14/2022 Appointment Laboratory Angélica Royal P.A.-C. [address] [place] [address] [phone] 08/28/2022 Appointment Laboratory Medicine Angélica Granger P.A.-C. [address] [place] [address] [phone] documented as of this encounter Visit Diagnoses Diagnosis Hypertension Essential Primary - Primary documented in this encounter Additional Health Concerns Assessment Noted Time PHQ-9 Depression Total Score: 1 08/26/2017 10:50 AM CS T documented as of this encounter Care Teams Manager It Security Relationship Specialty Start Date End Date Elsewhere, Pcp PCP - General Family Medicine 07/29/17 documented as of this encounter
--- OUTSIDE RECORDS SUMMARY | 2022-05-17 19:04 | XMS_ITS | Encounter Summary ---
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 [facility] Procedures MR Brain without IV Contrast MR Brain Dementia without Quantitative Measurements [place] MRI BRAIN WO CNTRST [place] MRI BRAIN WO [place] MRI BRAIN WO CNTRST HC MRI BRAIN WO CNTRST [address] [place] [phone] Referral ID Status Reason Start Date Expiration Date Visits Requ ested Visits Authorized [id number] Closed 02/06/2018 02/06/2019 1 1 Encounter Details Date Type Department Care Team Description 02/10/2018 Hospital Encounter Department of Otoniel Linares [facility], Russel Tubbs M.D. 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 [address] [place] [phone] 05/23/2022 Clinical Admitting/Central Communication Scheduling 05/27/2022 Comprehensive Visit Orthopedic Surgery Markus Sams M.D., Ph.D. [address] [place] [phone] 05/29/2022 Office Visit Otorhinolaryngology Dex Matta APRN, C.N.P., M.S.N. [address] [place] [phone] 05/29/2022 Office Visit Otorhinolaryngology Nadeem Maradiaga, P.A.-C., M.S. [address] [place] [phone] 05/31/2022 Appointment Radiology Guilherme Matt MPAS, P.A.-Arley., M.S. [address] [place] [phone] 06/05/2022 Appointment Laboratory Medicine Angélica Granger P.A.-C. [address] [place] [phone] 06/19/2022 Appointment Laboratory Medicine Angélica Granger P.A.-C. [address] [place] [phone] 07/03/2022 Appointment Laboratory Medicine Angélica Granger P.A.-C. [address] [place] [phone] 07/17/2022 Appointment Laboratory Medicine Angélica Granger P.A.-C. [address] [place] [phone] 07/31/2022 Appointment Laboratory Medicine Angélica Granger P.A.-C. [address] [place] [phone] 08/14/2022 Appointment Laboratory Medicine Angélica Granger P.A.-C. [address] [place] [address] [phone] 08/28/2022 Appointment Laboratory Medicine Angélica Granger P.A.-C. [address] [place] [phone] documented as of this encounter Procedures Procedure [...] Modality Head, Brain, Neuroradiology RST LOS N/A Magn etic Resonance Specimen (Source) Anatomical Collection Method Collection [...] assessment was performed on an independent computer windows server administrator using [employer] software. The clinical indication for performing the p ost-processing was cognitive decline. Review of the quality control inspector images dem onstrates appropriate segmentation of the [...] assessment was performed on an independent computer windows server administrator using [employer] software. The clinical indication for performing the p ost-processing was cognitive decline. Review of the quality control inspector images dem onstrates appropriate segmentation of the [...] as of this encounter Care Teams Mobile Application Architect Relationship Specialty Start Date End Date Elsewhere, Pcp PCP - General Family Medicine 07/29/17 documented as of this encounter
--- OUTSIDE RECORDS SUMMARY | 2022-05-17 19:04 | XMS_ITS | Encounter Summary ---
:1955 Author Organization [facility] Address [address] [place] [address] Care Team Providers Name Role Phone Elsewhere, Pcp Primary Care Provider Unavailable Reason for Referral Outpatient (Routine) - Closed Specialty Diagnoses / Procedures Referred By Contact Refer red To Contact [facility] Medicine [facility] [address] [place] [phone] Referral ID Status Reason Start Date Expiration Date Visits Requ ested Visits Authorized [id number] Closed 02/10/2018 02/10/2019 1 1 Reason for Visit Outpatient (Routine) - Closed Specialty Diagnoses / Procedures Referred By Contact Refer red To Contact [facility] Medicine Diagnoses Chronic Kidney Disease Stage 4 Glomerular Filtration Rate 15-29 ([facility]) [facility] [address] [place] [address] Referral ID Status Reason Start Date Expiration Date Visits Requ ested Visits Authorized [id number] Closed 10/10/2017 04/08/2018 1 1 Encounter Details Date Type Department Care Team Description 02/10/2018 Office Visit Division of Nephrology Mike Bailey rtension And Chronic Kidney Disease Stage 1 To 4 (Primary Dx); and Hypertension in Sada Hobson Chronic Kidney Disease Stage 4 Glomerula r Filtration Rate 15-29 ([facility]) [address] [place] [phone] Social History Tobacco Use Types Packs/Day Years [...] Date Recorded Male 05/16/2020 4:27 PM 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 Interstitial fibrosis with tubular atrophy affects approximately [...] Espinoza Bailey M.D. Associated attestation - Akin Cahvez M.D. - 02/11/2018 2:33 PM CDT I [...] in late 2016. He status post previous paimiut kidney biopsy due to the presence of [...] Laboratory Medicine Angélica Granger P.A.-C. [address] [place] [phone] 05/23/2022 Clinical Admitting/Central Communication Scheduling 05/27/2022 Comprehensive Visit Orthopedic Surgery Markus Sams M.D., Ph.D. [address] [place] [phone] 05/29/2022 Office Visit Otorhinolaryngology Dex Matta APRN, C.N.P., M.S.N. [address] [place] [phone] 05/29/2022 Office Visit Otorhinolaryngology Nadeem Maradiaga, PMaryanne., M.S. [address] [place] [phone] 05/31/2022 Appointment Radiology Guilherme Matt MPAS, PMaryanne., M.S. [address] [place] [phone] 06/05/2022 Appointment Laboratory Medicine Angélica Granger P.A.-C. [address] [place] [phone] 06/19/2022 Appointment Laboratory Medicine Angélica Granger P.A.-C. [address] [place] [phone] 07/03/2022 Appointment Laboratory Medicine Angélica Granger P.A.-C. [address] [place] [phone] 07/17/2022 Appointment Laboratory Medicine Angélica Granger P.A.-C. [address] [place] [phone] 07/31/2022 Appointment Laboratory Medicine Angélica Granger P.A.-C. [address] [place] [address] [phone] 08/14/2022 Appointment Laboratory Medicine Angélica Granger P.A.-C. [address] [place] [address] [phone] 08/28/2022 Appointment Laboratory Medicine Angélica Granger P.A.-C. [address] [place] [address] [phone] Scheduled Referrals Name Type Priority Associated Order Schedule Diagnoses Nephrology and Outpatient Referral Routine Expect ed: Hypertension office 08/13/19 19 visit (clinic) (Approximate) , Expires: 02/10/2019 documented as of this encounter Results (ABNORMAL) Urinalysis with Microscopic (08/24/2018 8:19 AM DIRECTOR PROCESS) [facility] gist Method Time Signature Source Midstream 08/24/2018 [facility] 8:19 AM [facility] Appearance Normal Normal 08/24/2018 [facility] 8:52 AM [facility] Osmolality, U 376 150 - 1150 08/24/2018 [facility] mOsm/kg 9:24 AM [facility] pH, U 6.8 4.5 - 8.0 08/24/2018 [facility] 9:24 AM [facility] Comment: ----ADDITIONAL INFORMATION---- This test was developed and its performa nce characteristics determined by [facility] in a manner co nsistent with CLIA requirements. This test has not bee n cleared or approved by the U.S. Food and Drug Admin istration. Glucose 4 0 - 15 mg/dL 08/24/2018 8:52 AM DIRECTOR PROCESS [facility] Protein, U 67 (H) <26 mg/dL 08/24/2018 9:41 AM [facility] Comment: ----ADDITIONAL INFORMATION---- On 12/17/2016 the total protein assay me thod changed resulting in approximately a 15% increase in prote in values. Protein/Osmolality 1.78 (H) <0.42 Ratio 08/24/2018 9:[address] [facility] Comment: ----ADDITIONAL INFORMATION---- On 12/17/2016 the total protein assay me thod changed resulting in approximately a 15% increase in prote in values. Predicted 24 Hr 1633 mg/24 h 08/24/2018 9:41 AM [facility] Protein [place] Predicted Range 518-5145 mg/24 h 08/24/2018 9:[address] [facility] Hemoglobin, QL Trace (A) Negative 08/24/2018 10:[address] [facility] Specimen Anatomical Collection Method Collection Time Receive d Time (Source) Location / / Volume Laterality Urine (Urine, 08/24/2018 8:19 AM 08/25/19 8:19 Voided) DIRECTOR PROCESS AM [facility] Espinoza Bailey M.D. LAB URINE ORDERABLES Performing Organization Address City/State/ZIP Code Phon e Number [facility] - [address] [place] [phone] [facility] (ABNORMAL) Protein/Creatinine Ratio, Random, Urine (08/24/2018 8:19 AM [facility]) athologist Signature Protein, 67 mg/dL 08/24/2018 [facility] Total, Random, 9:41 AM [facility] Comment: ----ADDITIONAL INFORMATION---- On 12/17/2016 the total protein assay me thod changed resulting in approximately a 15% increase in prote in values. Creatinine 92 mg/dL 08/24/2018 8:52 AM [facility] Concentration [facility] Protein/Creatinine 0.73 (H) <0.18 mg/mg 08/24/2018 9:41 AM [facility] Ratio [facility] Comment: ----ADDITIONAL INFORMATION---- On 12/17/2016 the total protein assay me thod changed resulting in approximately a 15% increase in prote in values. Specimen Anatomical Collection Method Collection Time Receive d Time (Source) Location / / Volume Laterality Urine (Urine, 08/24/2018 8:19 AM 08/25/19 19 8:19 Voided) DIRECTOR PROCESS AM DIRECTOR PROCESS Espinoza Bailey M.D. LAB URINE ORDERABLES Performing Organization Address [facility]/ZIP [facility] Phon e Number [facility] - [address] (ABNORMAL) Microalbumin, Random, Urine (08/24/2018 8:19 AM DIRECTOR PROCESS) athologist Signature Microalbumin 503.6 mg/L 08/24/2018 [facility] 9:05 AM [facility] Comment: ----ADDITIONAL INFORMATION---- This test has been modified from the man ufacturer's instructions. Its performance characteri stics were determined by [facility] in a manner co nsistent with CLIA requirements. This test has not bee n cleared or approved by the U.S. Food and Drug Admin istration. Creatinine 92 mg/dL 08/24/2018 8:52 AM [facility] [place] Albumin/Creatinine 547 (H) <17 mg/g 08/24/2018 9:05 AM [facility] Ratio [facility] S Specimen Anatomical Collection Method Collection Time Receive d Time (Source) Location / / Volume Laterality Urine (Urine, 08/24/2018 8:19 AM 08/25/19 19 8:19 Voided) DIRECTOR PROCESS AM DIRECTOR PROCESS Espinoza Bailey M.D. LAB URINE ORDERABLES Performing Organization Address City/[facility]/ZIP Code Phon e Number [facility] - [address] [place] [phone] [facility] (ABNORMAL) CBC with Differential, Blood (08/24/2018 7:38 AM DIRECTOR PROCESS) Patholo gist Method Time Signature Hemoglobin 11.6 (L) 13.2 - 08/24/2018 [facility] 16.6 g/dL 7:53 AM DIRECTOR PROCESS [facility] Hematocrit 34.5 (L) 38.3 - 08/24/2018 [facility] 48.6 % 7:53 AM [facility] Erythrocytes 3.68 (L) 4.35 - 08/24/2018 [facility] 5.65 7:53 AM DIRECTOR PROCESS LABORATORIES - x10(12)/L [facility] MCV 93.8 78.2 - 08/24/2018 [facility] 97.9 fL 7:53 AM DIRECTOR PROCESS LABORATORIES - [facility] RBC Distrib 12.0 11.8 - 08/24/2018 [facility] Width 14.5 % 7:53 AM DIRECTOR PROCESS LABORATORIES - [facility] Platelet Count 214 135 - 317 08/24/2018 [facility] x10(9)/L 7:53 AM DIRECTOR PROCESS LABORATORIES - [facility] Leukocytes 4.6 3.4 - 9.6 08/24/2018 [facility] x10(9)/L 7:53 AM DIRECTOR PROCESS LABORATORIES - [facility] Neutrophils 2.54 1.56 - 08/24/2018 [facility] 6.45 7:53 AM DIRECTOR PROCESS LABORATORIES - x10(9)/L [facility] Lymphocytes 1.37 0.95 - 08/24/2018 [facility] 3.07 7:53 AM DIRECTOR PROCESS LABORATORIES - x10(9)/L [facility] Monocytes 0.55 0.26 - 08/24/2018 [facility] 0.81 7:53 AM DIRECTOR PROCESS LABORATORIES - x10(9)/L [facility] Eosinophils 0.09 0.03 - 08/24/2018 [facility] 0.48 7:53 AM DIRECTOR PROCESS LABORATORIES - x10(9)/L [facility] Basophils <0.03 0.01 - 08/24/2018 [facility] 0.08 7:53 AM DIRECTOR PROCESS LABORATORIES - x10(9)/L [facility] Specimen Anatomical Collection Method Collection Time Receive d Time (Source) Location / / Volume Laterality Blood (Blood, 08/24/2018 7:38 AM 08/25/19 19 7:43 Venous) DIRECTOR PROCESS AM DIRECTOR PROCESS Espinoza Bailey M.D. LAB BLOOD ADD-ON Performing Organization Address City/State/ZIP Code Phon e Number [facility] - [address] [place], [place] [address] [facility] (ABNORMAL) Parathyroid Hormone (PTH) (08/24/2018 7:38 AM DIRECTOR PROCESS) [facility] Method Time Signature Parathyroid 124 (H) 15 - 65 08/24/2018 [facility] Hormone (PTH), pg/mL 8:53 AM DIRECTOR PROCESS LABORATORIES - S [facility] Specimen Anatomical Collection Method Collection Time Receive d Time (Source) Location / / Volume Laterality Blood (Blood, 08/24/2018 7:38 AM 08/25/19 7:43 Venous) DIRECTOR PROCESS AM DIRECTOR PROCESS Espinoza Bailey M.D. LAB BLOOD ADD-ON Performing Organization Address City/State/ZIP Code Phon e Number [facility] - [address] [place], [place] [address] [facility] (ABNORMAL) Renal Function Panel (08/24/2018 7:38 AM DIRECTOR PROCESS) [facility] Method Time Signature Potassium, S 4.0 3.6 - 5.2 08/24/2018 [facility] mmol/L 8:53 AM DIRECTOR PROCESS LABORATORIES - [facility] Sodium, S 137 135 - 145 08/24/2018 [facility] mmol/L 8:53 AM DIRECTOR PROCESS LABORATORIES - [facility] Chloride, S 98 98 - 107 08/24/2018 [facility] mmol/L 8:53 AM DIRECTOR PROCESS LABORATORIES - [facility] Bicarbonate, S 26 22 - 29 08/24/2018 [facility] mmol/L 8:53 AM DIRECTOR PROCESS LABORATORIES - [facility] Anion Gap 13 7 - 15 08/24/2018 [facility] 8:53 AM DIRECTOR PROCESS LABORATORIES - [facility] BUN (Blood 51 (H) 8 - 24 08/24/2018 [facility] Urea mg/dL 8:53 AM DIRECTOR PROCESS LABORATORIES - Nitrogen), S [facility] Creatinine 2.71 (H) 0.74 - 08/24/2018 [facility] 1.35 8:53 AM DIRECTOR PROCESS LABORATORIES - mg/dL [facility] eGFR-Non 24 (L) >=60 08/24/2018 [facility] Black/ mL/min/BS 8:53 AM DIRECTOR PROCESS LABORATORIES - Bulgarian A [facility] Comment: ----ADDITIONAL INFORMATION---- Estimated GFR calculated using the 2009 CKD_EPI creatinine equation. eGFR-Black/ 28 (L) >=60 mL/min/BSA 08/24/2018 8:53 [facility] Bulgarian AM DIRECTOR PROCESS LABORATORIES - [facility] Comment: ----ADDITIONAL INFORMATION---- Estimated GFR calculated using the 2009 CKD_EPI creatinine equation. Calcium, Total, S 9.1 8.8 - 10.2 08/24/2018 8:53 AM [facility] mg/dL DIRECTOR PROCESS [facility] Glucose, S 126 70 - 140 mg/dL 08/24/2018 8:53 AM [facility] DIRECTOR PROCESS LABORATORIES [facility] S Albumin, S 4.3 3.5 - 5.0 g/dL 08/24/2018 8:53 AM [facility] DIRECTOR PROCESS LABORATORIES - [facility] S Phosphorus 3.5 2.5 - 4.5 mg/dL 08/24/2018 8:53 AM [facility] (Inorganic), S DIRECTOR PROCESS LABORATORIES - [facility] Specimen Anatomical Collection Method Collection Time Receive d Time (Source) Location / / Volume Laterality Blood (Blood, 08/24/2018 7:38 AM 08/25/19 19 7:43 Venous) DIRECTOR PROCESS AM DIRECTOR PROCESS Espinoza Bailey M.D. LAB BLOOD ADD-ON Performing Organization Address City/[facility] Phon e Number [facility] - [address] (ABNORMAL) Cystatin C with Estimated GFR (03/25/2018 7:45 AM CDT) P athologist Signature eGFR by 16 >60 03/25/2018 [facility] Cystatin C mL/min/BSA 9:31 AM CDT LABORATORIES [facility] Comment: ----ADDITIONAL INFORMATION---- Cystatin C-based eGFR may differ substan tially from creatinine-based eGFR in patients with a bnormal muscle mass or acutely changing renal function. ??Pl ease interpret together with relevant clinical features. Cystatin C, S 3.21 (H) 0.77 - 1.42 03/25/2018 9:31 AM [facility] mg/L CDT [facility] Specimen Anatomical Collection Method Collection Time Receive d Time (Source) Location / / Volume Laterality Blood (Blood, 03/25/2018 7:45 AM 03/25/20 18 9:03 Venous) CDT AM CDT Espinoza Bailey M.D. LAB BLOOD ADD-ON Performing Organization Address City/[facility] Phon e Number [facility] - [address] documented in this encounter Visit Diagnoses Diagnosis Hypertension And Chronic Kidney Disease Stage 1 To 4 - Primary Chronic Kidney Disease Stage 4 Glomerula r Filtration Rate 15-29 (HCC) documented in this encounter Additional Health Concerns Assessment Noted Time PHQ-9 Depression Total Score: 1 08/26/2017 10:50 AM CS T documented as of this encounter Care Teams Quality Improvement Analyst Relationship Specialty Start Date End Date Elsewhere, Pcp PCP - General Family Medicine 07/29/17 documented as of this encounter
--- OUTSIDE RECORDS SUMMARY | 2022-05-17 19:04 | XMS_ITS | Encounter Summary ---
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 [address] [place] [phone] 05/23/2022 Clinical Admitting/Central Communication Scheduling 05/27/2022 Comprehensive Visit Orthopedic Surgery Markus Sams M.D., Ph.D. [address] [place] [phone] 05/29/2022 Office Visit Otorhinolaryngology Dex Matta APRN, C.N.P., M.S.N. [address] [place] [phone] 05/29/2022 Office Visit Otorhinolaryngology Nadeem Maradiaga, P.A.-C., M.S. [address] [place] [phone] 05/31/2022 Appointment Radiology Guilherme Matt MPAS, P.Murtaza.Marie., M.S. [address] [place] [phone] 06/05/2022 Appointment Laboratory Medicine Angélica Granger P.A.-C. [address] [place] [phone] 06/19/2022 Appointment Laboratory Medicine Angélica Granger P.A.-C. [address] [place] [phone] 07/03/2022 Appointment Laboratory Medicine Angélica Granger P.A.-C. [address] [place] [phone] 07/17/2022 Appointment Laboratory Medicine Angélica Granger P.A.-C. [address] [place] [phone] 07/31/2022 Appointment Laboratory Medicine Angélica Granger P.A.-C. [address] [place] [phone] 08/14/2022 Appointment Laboratory Angélica Royal P.A.-C. [address] [place] [phone] 08/28/2022 Appointment Laboratory Angélica Royal P.A.-C. [address] [place] [phone] documented as of this encounter Visit Diagnoses Not on filedocumented in this encounter Additional Health Concerns Assessment Noted Time PHQ-9 Depression Total Score: 1 08/26/2017 10:50 AM CS T documented as of this encounter Care Teams Spanish Speaking Babysitter Relationship Specialty Start Date End Date Elsewhere, Pcp PCP - General Family Medicine 07/29/17 documented as of this encounter
--- OUTSIDE RECORDS SUMMARY | 2022-05-17 19:04 | XMS_ITS | Encounter Summary ---
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 [address] [place] [phone] 05/23/2022 Clinical Admitting/Central Communication Scheduling 05/27/2022 Comprehensive Visit Orthopedic Surgery Markus Sams M.D., Ph.D. [address] [place] [phone] 05/29/2022 Office Visit Otorhinolaryngology Dex Matta APRN, C.NDemetriusP., M.S.N. [address] [place] [phone] 05/29/2022 Office Visit Otorhinolaryngology Nadeem Maradiaga, Jennifer., M.S. [address] [place] [phone] 05/31/2022 Appointment Radiology Guilherme Matt, RASTA, Jennifer., M.S. [address] [place] [phone] 06/05/2022 Appointment Laboratory Medicine Angélica Granger P.A.-C. [address] [place] [phone] 06/19/2022 Appointment Laboratory Medicine Angélica Granger P.A.-C. [address] [place] [phone] 07/03/2022 Appointment Laboratory Medicine Angélica Granger P.A.-C. [address] [place] [phone] 07/17/2022 Appointment Laboratory Medicine Angélica Granger P.A.-C. [address] [place] [phone] 07/31/2022 Appointment Laboratory Medicine Angélica Granger P.A.-C. [address] [place] [phone] 08/14/2022 Appointment Laboratory Medicine Angélica Granger P.A.-C. [address] [place] [phone] 08/28/2022 Appointment Laboratory Medicine Angélica Granger P.A.-C. [address] [place] [phone] documented as of this encounter Visit Diagnoses Not on filedocumented in this encounter Additional Health Concerns Assessment Noted Time PHQ-9 Depression Total Score: 1 08/26/2017 10:50 AM CS T documented as of this encounter Care Teams Er Registrar Relationship Specialty Start Date End Date Elsewhere, Pcp PCP - General Family Medicine 07/29/17 documented as of this encounter
--- OUTSIDE RECORDS SUMMARY | 2022-05-17 19:04 | XMS_ITS | Encounter Summary ---
:1955 Author Organization [facility] Address [address] [place] [address] Care Team Providers Name Role Phone Elsewhere, Pcp Primary Care Provider Unavailable Reason for Visit Reason Comments Med Refill Encounter Details Date Type Department Care Team Description 12/11/2017 Refill Division of Gastroenterology in Jaxson Wolfe M.D. 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 [address] [place] [phone] 05/23/2022 Clinical Admitting/Central Communication Scheduling 05/27/2022 Comprehensive Visit Orthopedic Surgery Markus Sams M.D., Ph.D. [address] [place] [phone] 05/29/2022 Office Visit Otorhinolaryngology Dex Matta APRN, C.N.P., M.S.N. [address] [place] [phone] 05/29/2022 Office Visit Otorhinolaryngology Nadeem Maradiaga, P.Murtaza.-Arley., M.S. [address] [place] [phone] 05/31/2022 Appointment Radiology Guilherme Matt MPAS, P.Murtaza.-Arley., M.S. [address] [place] [phone] 06/05/2022 Appointment Laboratory Medicine Angélica Granger P.A.-C. [address] [place] [address] [phone] 06/19/2022 Appointment Laboratory Medicine Angélica Granger P.A.-C. [address] [place] [phone] 07/03/2022 Appointment Laboratory Medicine Angélica Granger P.A.-C. [address] [place] [phone] 07/17/2022 Appointment Laboratory Medicine Angélica Granger P.A.-C. [address] [place] [phone] 07/31/2022 Appointment Laboratory Medicine Angélica Granger P.A.-C. [address] [place] [phone] 08/14/2022 Appointment Laboratory Medicine Angélica Granger P.A.-C. [address] [place] [phone] 08/28/2022 Appointment Laboratory Angélica Royal P.A.-C. [address] [place] [phone] documented as of this encounter Visit Diagnoses Not on filedocumented in this encounter Additional Health Concerns Assessment Noted Time PHQ-9 Depression Total Score: 1 08/26/2017 10:50 AM CS T documented as of this encounter Care Teams Personal Companion Relationship Specialty Start Date End Date Elsewhere, Pcp PCP - General Family Medicine 07/29/17 documented as of this encounter
--- OUTSIDE RECORDS SUMMARY | 2022-05-17 19:05 | XMS_ITS | Encounter Summary ---
:1955 Author Organization [facility] Address [address] [place] [address] Care Team Providers Name Role Phone Unavailable Primary Care Provider Unavailable Encounter Details Date Type Department Care Team Description 11/24/2015 Hospital Encounter HX [facility] Gail Figueroa M.D. 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 From: HE KNIGHT MD To: GERARDO Knight Nurse; Sent: 11/27/2015 08:58:20 CDT Show up: 11/27/2015 08:58:00 CDT Subject: Results Notification Actions: Note to Nurse normal Results: Date Result Type Result Name 11/24/2015 10:58 Radiology US Thyroid Source: [facility] Document Id: [id number] documented in this encounter Plan of Treatment Upcoming Encounters Date Type Specialty Care Team Description 05/22/2022 Appointment Laboratory Medicine Angélica Granger P.A.-C. [address] [place] [phone] 05/23/2022 Clinical Admitting/Central Communication Scheduling 05/27/2022 Comprehensive Visit Orthopedic Surgery Markus Sams M.D., Ph.D. [address] [place] [address] [phone] 05/29/2022 Office Visit Otorhinolaryngology Dex Matta APRN, C.N.P., M.S.N. [address] [place] [address] [phone] 05/29/2022 Office Visit Otorhinolaryngology Nadeem Maradiaag, P.A.-C., M.S. [address] [place] [address] [phone] 05/31/2022 Appointment Radiology Guilherme Matt MPAS, P.Murtaza.-Arley., M.S. [address] [place] [phone] 06/05/2022 Appointment Laboratory Medicine Angélica Granger P.A.-C. [address] [place] [address] [phone] 06/19/2022 Appointment Laboratory Medicine Angélica Granger P.A.-C. [address] [place] [phone] 07/03/2022 Appointment Laboratory Medicine Angélica Granger P.A.-C. [address] [place] [phone] 07/17/2022 Appointment Laboratory Medicine Angélica Granger P.A.-C. [address] [place] [phone] 07/31/2022 Appointment Laboratory Medicine Angélica Granger P.A.-C. [address] [place] [phone] 08/14/2022 Appointment Laboratory Medicine Angélica Granger P.A.-C. [address] [place] [phone] 08/28/2022 Appointment Laboratory Medicine Angélica Granger P.A.-C. [address] [place] [phone] documented as of this encounter Procedures Procedure Name Priority Date/Time Associated Diagnosis Comme [facility] US THYROID Routine 11/24/2015 9:30 AM Results [...] goiter. Procedure Note Santana Parish M.D. / ProviderFidencio M.D. - 10/25/2016 EXAM: US Thyroid INDICATION: elevatred TSH; ? goiter COMPARISON: None. FINDINGS: Right thyroid lobe measures 3.9 x 1.6 x 1.5 cm. Left thyroid lobe measures 3.5 x 1.0 x 1 .4 cm. Thyroid size is normal. No thyroid nodules. Negative for goiter. IMPRESSION: 1. Normal thyroid ultrasound. Julien Perla Jr., RWilfred.M.S. IMG US PROCEDURES documented in this encounter Visit Diagnoses Not on filedocumented in this encounter Additional Health Concerns Assessment Noted Time PHQ-9 Depression Total Score: 3 05/30/2015 10:21 AM CS T documented as of this encounter
--- OUTSIDE RECORDS SUMMARY | 2022-05-17 19:05 | XMS_ITS | Encounter Summary ---
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 [address] [place] [phone] 05/23/2022 Clinical Admitting/Central Communication Scheduling 05/27/2022 Comprehensive Visit Orthopedic Surgery Markus Sams M.D., Ph.D. [address] [place] [phone] 05/29/2022 Office Visit Otorhinolaryngology Dex Matta APRN, C.N.P., M.S.N. [address] [place] [address] [phone] 05/29/2022 Office Visit Otorhinolaryngology Nadeem Maradiaga, PMaryanne., M.S. [address] [place] [phone] 05/31/2022 Appointment Radiology Guilherme Matt, RASTA, PMaryanne., M.S. [address] [place] [phone] 06/05/2022 Appointment Laboratory Medicine Angélica Granger P.A.-C. [address] [place] [phone] 06/19/2022 Appointment Laboratory Medicine Angélica Granger P.A.-C. [address] [place] [phone] 07/03/2022 Appointment Laboratory Medicine Angélica Granger P.A.-C. [address] [place] [phone] 07/17/2022 Appointment Laboratory Medicine Angélica Granger P.A.-C. [address] [place] [phone] 07/31/2022 Appointment Laboratory Medicine Angélica Granger P.A.-C. [address] [place] [phone] 08/14/2022 Appointment Laboratory Medicine Angélica Granger P.A.-C. [address] [place] [phone] 08/28/2022 Appointment Laboratory Medicine Angélica Granger P.A.-C. [address] [place] [phone] documented as of this encounter Visit Diagnoses [...]
--- OUTSIDE RECORDS SUMMARY | 2022-05-17 19:05 | XMS_ITS | Encounter Summary ---
:1955 Author Organization [facility] Address [address] [place] [address] Care Team Providers Name Role Phone Elsewhere, Pcp Primary Care Provider Unavailable Reason for Referral Appointment Request (Routine) - Closed Specialty Diagnoses / Procedures Referred By Contact Refer red To Contact Nephrology and Hypertension Referral ID Status Reason Start Date Expiration Date Visits Requ ested Visits Authorized [id number] Closed 10/21/2017 04/19/2018 1 Appointment Request (Routine) - Closed Specialty Diagnoses / Procedures Referred By Contact Refer red To Contact Nephrology and Hypertension Referral ID Status Reason Start Date Expiration Date Visits Requ ested Visits Authorized [id number] Closed 10/21/2017 04/19/2018 1 Appointment Request (Routine) - Closed Specialty Diagnoses / Procedures Referred By Contact Refer red To Contact Nephrology and Hypertension Referral ID Status Reason Start Date Expiration Date Visits Requ ested Visits Authorized [id number] Closed 10/21/2017 04/19/2018 1 Appointment Request (Routine) - Closed Specialty Diagnoses / Procedures Referred By Contact Refer red To Contact Nephrology and Hypertension Referral ID Status Reason Start Date Expiration Date Visits Requ ested Visits Authorized [id number] Closed 10/21/2017 04/19/2018 1 Outpatient (Routine) - Closed Specialty Diagnoses / Procedures Referred By Contact Refer red To Contact Nephrology and Diagnoses Hypertension Essential Primary Mercedez Coker [facility] Hypertension M.Louie [address] [place] [address] Referral ID Status Reason Start Date Expiration Date Visits Requ ested Visits Authorized [id number] Closed 10/21/2017 04/19/2018 1 1 Appointment Request (Routine) - Closed Specialty Diagnoses / Procedures Referred By Contact Refer red To Contact Nephrology and Hypertension Referral ID Status Reason Start Date Expiration Date Visits Requ ested Visits Authorized [id number] Closed 10/21/2017 04/19/2018 1 Appointment Request (Routine) - Closed Specialty Diagnoses / Procedures Referred By Contact Refer mindy To Contact Nephrology and Hypertension Referral ID Status Reason Start Date Expiration Date Visits Requ ested Visits Authorized [id number] Closed 10/21/2017 04/19/2018 1 Outpatient (Routine) - Closed Specialty Diagnoses / Procedures Referred By Contact Refer mindy To Contact Transplant Truong Connor M.D . [address] [address] Referral ID Status Reason Start Date Expiration Date Visits Requ ested Visits Authorized [id number] Closed 10/10/2017 04/08/2018 1 1 Outpatient (Routine) - Closed Specialty Diagnoses / Procedures Referred By Contact Refer red To Contact Hyperbaric Medicine Diagnoses Chronic Kidney Disease Stage 4 Glomerular Filtration Rate 15-29 ([facility]) Mercedez Coker [facility] [address] [place] [address] Referral ID Status Reason Start Date Expiration Date Visits Requ ested Visits Authorized [id number] Closed 10/10/2017 04/08/2018 1 1 Encounter Details Date Type Department Care Team Description 10/02/2017 Orders Only Department of Cheryl Torres Renal Artery (HCC); Vascular Medicine in [place] Stern Chronic Kidney Disease; [place], [place] [address] [facility] Transplant Liver (HCC); [address] [place], [place] Chronic Kidney Disease Stage 4 Glomerular Filtration Rate 15-29 (HCC); [place] [address] Hypertension Essential Primary [id number] Social History Tobacco Use Types Packs/Day Years [...] at Date Recorded Male 05/16/2020 4:27 PM [employer] documented as of this encounter Plan of Treatment Upcoming Encounters Date Type Specialty Care Team Description 05/22/2022 Appointment Laboratory Medicine Angélica Granger P.A.-C. [address] [place] [phone] 05/23/2022 Clinical Admitting/Central Communication Scheduling 05/27/2022 Comprehensive Visit Orthopedic Surgery Markus Sams M.D., Ph.D. [address] [place] [phone] 05/29/2022 Office Visit Otorhinolaryngology Dex Matta APRN C.N.P., M.S.N. [address] [place] [phone] 05/29/2022 Office Visit Otorhinolaryngology Nadeem Maradiaga, Jennifer., M.S. [address] [place] [phone] 05/31/2022 Appointment Radiology Guilherme Matt MPAS, Jennifer., M.S. [address] [place] [phone] 06/05/2022 Appointment Laboratory Medicine Angélica Granger P.A.-C. [address] [place] [address] [phone] 06/19/2022 Appointment Laboratory Medicine Angélica Granger P.A.-C. [address] [place] [phone] 07/03/2022 Appointment Laboratory Medicine Angélica Granger P.A.-C. [address] [place] [phone] 07/17/2022 Appointment Laboratory Medicine Angélica Granger P.A.-C. [address] [place] [phone] 07/31/2022 Appointment Laboratory Medicine Angélica Granger P.A.-C. [address] [place] [phone] 08/14/2022 Appointment Laboratory Medicine Angélica Granger P.A.-C. [address] [place] [phone] 08/28/2022 Appointment Laboratory Medicine Angélica Granger P.A.-C. [address] [place] [phone] Scheduled Referrals Name Type Priority Associated Diagnoses Order S [facility] Nephrology and Outpatient Referral Routine Chronic Kidney Expe cted: Hypertension office Disease Stage 4 02/21 visit (clinic) Glomerular (Approximate) , Filtration Rate Expires: 15- (HCC) 10/10/2020 Transplant Composite Outpatient Referral Routine [...] wer pole of the left kidney. Cheryl Torres M.D. [facility] US PROCEDURES (ABNORMAL) Urinalysis with Microscopic (02/10/2018 8:43 AM CDT) [facility] Method Time Signature Source Midstream 02/10/2018 [facility] 8:43 AM [facility] Appearance Normal Normal 02/10/2018 [facility] 9:17 AM [facility] Osmolality, U 363 150 - 1150 02/10/2018 [facility] mOsm/kg 9:42 AM [facility] pH, U 6.8 4.5 - 8.0 02/10/2018 [facility] 9:42 AM CDT [facility] Comment: ----ADDITIONAL INFORMATION---- This test was developed and its performa nce characteristics determined by [facility] in a manner co nsistent with CLIA requirements. This test has not bee n cleared or approved by the U.S. Food and Drug Admin istration. Glucose 3 0 - 15 mg/dL 02/10/2018 9:17 AM CDT [facility] Protein, U 57 (H) <26 mg/dL 02/10/2018 9:17 AM T [facility] Comment: ----ADDITIONAL INFORMATION---- On 12/17/2016 the total protein assay me thod changed resulting in approximately a 15% increase in prote in values. Protein/Osmolality 1.57 (H) <0.42 Ratio 02/10/2018 9:42 AM [facility] Comment: ----ADDITIONAL INFORMATION---- On 12/17/2016 the total protein assay me thod changed resulting in approximately a 15% increase in prote in values. Predicted 24 Hr 1448 mg/24 h 02/10/2018 9:42 AM [facility] Protein T [facility] Predicted Range 459-4561 mg/24 h 02/10/2018 9:42 AM [facility] Hemoglobin, QL Small (A) Negative 02/10/2018 11:29 AM [facility] Specimen Anatomical Collection Method Collection Time Receive d Time (Source) Location / / Volume Laterality Urine 02/10/2018 8:43 AM 8 9:17 CDT AM CDT Mercedez Coker M.D. LAB URINE ORDERABLES Performing Organization Address City/State/ZIP Code Phon e Number [facility] - [address] [place], [place] [address] [facility] (ABNORMAL) Microalbumin, Random, Urine (02/10/2018 8:43 AM CDT) P athologist Signature Microalbumin 453.2 mg/L 02/10/2018 [facility] 9:33 AM CDT [facility] Comment: ----ADDITIONAL INFORMATION---- This test has been modified from the man ufacturer's instructions. Its performance characteri stics were determined by [facility] in a manner co nsistent with CLIA requirements. This test has not bee n cleared or approved by the U.S. Food and Drug Admin istration. Creatinine 59 mg/dL 02/10/2018 9:17 AM [facility] CD[facility] - [facility] Albumin/Creatinine 768 (H) <17 mg/g 02/10/2018 9:33 AM [facility] Ratio CDT [facility] - [facility] Specimen Anatomical Collection Method Collection Time Receive d Time (Source) Location / / Volume Laterality Urine 02/10/2018 8:43 AM 8 9:17 CDT AM CDT Mercedez Coker M.D. LAB URINE ORDERABLES Performing Organization Address [facility] Phon e Number [facility] - [address] [place] [address] [facility] Sodium (02/10/2018 7:49 AM CDT) P athologist Signature Sodium, S CANCELED 135 - 145 02/11/2018 [facility] mmol/L 9:44 AM CDT LABORATORIES - [facility] Comment: REVISED RESULTS ----PREVIOUSLY REPORTED ---- 139, Flagged as: Normal (Reported 02/10/2018 08:35) Specimen Anatomical Collection Method Collection Time Receive d Time (Source) Location / / Volume Laterality Blood 02/10/2018 7:49 AM 8 8:00 CDT AM CDT Narrative [facility] - 02/11/2018 9:44 AM CDT Sodium, S was cancelled on 02/11/2018 at 09:44; Duplicate test request. Mercedez Coker M.D. LAB BLOOD ADD-ON Performing Organization Address City/[facility] Phon e Number [facility] - [address] [address] [facility] BUN (Blood Urea Nitrogen) (02/10/2018 7:49 AM CDT) Patholo gist Method Time Signature BUN (Blood CANCELED 8 - 24 02/11/2018 [facility] Urea mg/dL 9:44 AM CDT LABORATORIES - Nitrogen), S [facility] Comment: REVISED RESULTS ----PREVIOUSLY REPORTED ---- 55, Flagged as: Abnormal_High (Reported 02/10/2018 08:35) Specimen Anatomical Collection Method Collection Time Receive d Time (Source) Location / / Volume Laterality Blood 02/10/2018 7:49 AM 8 8:00 CDT AM CDT Narrative [facility] - 02/11/2018 9:44 AM CDT Bld Urea Nitrog(BUN), S was cancelled on 02/11/2018 at 09:44; Duplicate test request. Mercedez Coker M.D. LAB BLOOD ADD-ON Performing Organization Address City/[facility] Phon e Number [facility] [address] [address] [facility] Chloride (02/10/2018 7:49 AM CDT) Analysis Performed At Patho logist Time Signature Chloride, S CANCELED 98 - 107 02/11/2018 [facility] mmol/L 9:44 AM CDT [facility] Comment: REVISED RESULTS ----PREVIOUSLY REPORTED ---- 98, Flagged as: Normal (Reported 02/10/2018 08:35) Specimen Anatomical Collection Method Collection Time Receive d Time (Source) Location / / Volume Laterality Blood 02/10/2018 7:49 AM 8 8:00 CDT AM CDT Narrative [facility] - 02/11/2018 9:44 AM CDT Chloride, S was cancelled on 02/11/2018 at 09:44; Duplicate test request. Mercedez Coker M.D. LAB BLOOD ADD-ON Performing Organization Address City/[facility]/ZIP Code Phon e Number [facility] - [address] [place], [place] [address] [facility] Bicarbonate (02/10/2018 7:49 AM CDT) Patholo gist Method Time Signature Bicarbonate, S CANCELED - 29 02/11/2018 [facility] mmol/L 9:44 AM CDT [facility] Comment: REVISED RESULTS ----PREVIOUSLY REPORTED ---- 28, Flagged as: Normal (Reported 02/10/2018 08:35) Specimen Anatomical Collection Method Collection Time Receive d Time (Source) Location / / Volume Laterality Blood 02/10/2018 7:49 AM 8 8:00 CDT AM CDT Narrative [facility] - 02/11/2018 9:44 AM CDT Bicarbonate, S was cancelled on 02/12/20 18 at 09:44; Duplicate test request. Mercedez Coker M.D. LAB BLOOD ADD-ON Performing Organization Address [facility] Phon e Number [facility] - [address] [address] [facility] Potassium (02/10/2018 7:49 AM CDT) Patholo gist Method Time Signature Potassium, S CANCELED 3.6 - 5.2 02/11/2018 [facility] mmol/L 9:44 AM CDT [facility] Comment: REVISED RESULTS ----PREVIOUSLY REPORTED ---- 3.7, Flagged as: Normal (Reported 02/10/2018 08:35) Specimen Anatomical Collection Method Collection Time Receive d Time (Source) Location / / Volume Laterality Blood 02/10/2018 7:49 AM 8 8:00 CDT AM CDT Narrative [facility] - 02/11/2018 9:44 AM CDT Potassium, S was cancelled on 02/11/2018 at 09:44; Duplicate test request. Mercedez Coker M.D. LAB BLOOD ADD-ON Performing Organization Address [facility] Phon e Number [facility] - [address] [address] [facility] Creatinine with Estimated GFR (02/10/2018 7:49 AM CDT) P athologist Signature Creatinine CANCELED 0.74 - 02/11/2018 [facility] 1.35 mg/dL 9:44 AM CDT [facility] Comment: REVISED RESULTS ----PREVIOUSLY REPORTED ---- 2.58, Flagged as: Abnormal_High (Reported 02/10/2018 08:35) eGFR-Non CANCELED >=60 mL/min/BSA 02/11/2018 9:44 [facility] GASPER Black/ AM CDT LABORATORIES [facility] Comment: REVISED RESULTS ----ADDITIONAL INFORMATION---- Estimated GFR calculated using the 2009 CKD_EPI creatinine equation. ----PREVIOUSLY REPORTED ---- 25, Flagged as: Abnormal_Low (Reported 02/10/2018 08:35) eGFR-Black/ CANCELED >=60 mL/min/BSA 02/11/2018 9:44 [facility] [place] AM CDT [facility] Comment: REVISED RESULTS ----ADDITIONAL INFORMATION---- Estimated GFR calculated using the 2009 CKD_EPI creatinine equation. ----PREVIOUSLY REPORTED ---- 29, Flagged as: Abnormal_Low (Reported 02/10/2018 08:35) Specimen Anatomical Collection Method Collection Time Receive d Time (Source) Location / / Volume Laterality Blood 02/10/2018 7:49 AM 8 8:00 CDT AM CDT Narrative [facility] - 02/11/2018 9:44 AM CDT Creatinine with eGFR, S was cancelled on 02/11/2018 at 09:44; Duplicate test request. Mercedez Coker M.D. LAB BLOOD ADD-ON Performing Organization Address City/State/ZIP Code Phon e Number [facility] - [address] [place], [place] [address] [facility] 25-Hydroxyvitamin D2 and D3 (02/10/2018 7:49 AM CDT) P athologist Signature 25-Hydroxy D2 <4.0 ng/mL 02/11/2018 [facility] 3:27 AM CDT [facility] 25-Hydroxy D3 56 ng/mL 02/11/2018 [facility] 3:27 AM CDT [facility] 25-Hydroxy D 56 ng/mL 02/11/2018 [facility] Total 3:27 AM CDT [facility] Comment: Interpretation: 51-80 ng/mL (increased r isk [...] M.D. LAB BLOOD ADD-ON Performing Organization Address City/[facility]/ZIP Code Phon e Number [facility] [address] [place], [place] [address] [facility] (ABNORMAL) Cystatin C with Estimated GFR (02/10/2018 7:49 AM CDT) athologist Signature eGFR by 18 >60 02/10/2018 [facility] Cystatin C mL/min/BSA 9:49 AM CDT [facility] Comment: ----ADDITIONAL INFORMATION---- Cystatin C-based eGFR may differ substan tially from creatinine-based eGFR in patients with a bnormal muscle mass or acutely changing renal function. ??Pl ease interpret together with relevant clinical features. Cystatin C, S 3.04 (H) 0.77 - 1.42 02/10/2018 9:49 AM [facility] mg/L [facility] Specimen Anatomical Collection Method Collection Time Receive d Time (Source) Location / / Volume Laterality Blood 02/10/2018 7:49 AM 8 9:26 CDT AM CDT Mercedez Coker M.D. LAB BLOOD ADD-ON Performing Organization Address City/[facility] Code Phon e Number [facility] - [address] [place] [phone] [facility] Sodium (02/10/2018 7:49 AM CDT) athologist Signature Sodium, S CANCELED 135 - 145 02/11/2018 [facility] mmol/L 9:39 AM CDT [facility] Comment: REVISED RESULTS ----PREVIOUSLY REPORTED ---- 139, Flagged as: Normal (Reported 02/10/2018 09:04) Specimen Anatomical Collection Method Collection Time Receive d Time (Source) Location / / Volume Laterality Blood 02/10/2018 7:49 AM 8 8:00 CDT AM CDT Narrative [facility] - 02/11/2018 9:39 AM CDT Sodium, S was cancelled on 02/11/2018 at 09:39; Duplicate test request. Mercedez Coker M.D. LAB BLOOD ADD-ON Performing Organization Address City/[facility]/ZIP Code Phon e Number [facility] - [address] Potassium (02/10/2018 7:49 AM CDT) Patholo gist Method Time Signature Potassium, S CANCELED 3.6 - 5.2 02/11/2018 [facility] mmol/L 9:39 AM CDT [facility] Comment: REVISED RESULTS ----PREVIOUSLY REPORTED ---- 3.7, Flagged as: Normal (Reported 02/10/2018 09:04) Specimen Anatomical Collection Method Collection Time Receive d Time (Source) Location / / Volume Laterality Blood 02/10/2018 7:49 AM 8 8:00 CDT AM CDT Narrative [facility] - 02/11/2018 9:39 AM CDT Potassium, S was cancelled on 02/11/2018 at 09:39; Duplicate test request. Mercedez Coker M.D. LAB BLOOD ADD-ON Performing Organization Address [facility]/ZIP Code Phon e Number [facility] - [address] Phosphorus Inorganic (02/10/2018 7:49 AM CDT) Analysis Performed At Patho logist Time Signature Phosphorus 4.0 2.5 - 4.5 02/10/2018 [facility] (Inorganic), S mg/dL 9:04 AM CDT [facility] Specimen Anatomical Collection Method Collection Time Receive d Time (Source) Location / / Volume Laterality Blood 02/10/2018 7:49 AM 8 8:00 CDT AM CDT Mercedez Coker M.D. LAB BLOOD ADD-ON Performing Organization Address City/[facility]/ZIP Code Phon e Number [facility] - [address] (ABNORMAL) Glucose, Fasting (02/10/2018 7:49 AM CDT) P athologist Signature Glucose, P 110 (H) 70 - 100 02/10/2018 [facility] mg/dL 8:49 AM CDT [facility] Last Intake 12 hr 02/10/2018 [facility] 8:00 AM CDT [facility] Specimen Anatomical Collection Method Collection Time Receive d Time (Source) Location / / Volume Laterality Blood 02/10/2018 7:49 AM 8 8:00 CDT AM CDT Mercedez Coker M.D. LAB BLOOD NON ADD-ON Performing Organization Address City/State/ZIP Code Phon e Number [facility] - [address] [place], [place] [address] [facility] Creatinine with Estimated GFR (MDRD) (02/10/2018 7:49 AM CDT) athologist Signature Creatinine CANCELED 0.74 - 02/11/2018 [facility] 1.35 mg/dL 9:39 AM CDT [facility] Comment: REVISED RESULTS ----PREVIOUSLY REPORTED ---- 2.61, Flagged as: Abnormal_High (Reported 02/10/2018 09:04) eGFR-Non CANCELED >=60 mL/min/BSA 02/11/2018 9:39 [facility] AM CD[facility] Comment: REVISED RESULTS ----ADDITIONAL INFORMATION---- Estimated GFR calculated using the 2009 CKD_EPI creatinine equation. ----PREVIOUSLY REPORTED ---- 25, Flagged as: Abnormal_Low (Reported 02/10/2018 09:04) eGFR-Black/ CANCELED >=60 mL/min/BSA 02/11/2018 9:39 [facility] CDT [facility] Comment: REVISED RESULTS ----ADDITIONAL INFORMATION---- Estimated GFR calculated using the 2009 CKD_EPI creatinine equation. ----PREVIOUSLY REPORTED ---- 29, Flagged as: Abnormal_Low (Reported 02/10/2018 09:04) Specimen Anatomical Collection Method Collection Time Receive d Time (Source) Location / / Volume Laterality Blood 02/10/2018 7:49 AM 8 8:00 CDT AM CDT Narrative [facility] - 02/11/2018 9:39 AM CDT Creatinine with eGFR, S was cancelled on 02/11/2018 at 09:39; Duplicate test request. Mercedez Coker M.D. LAB BLOOD ADD-ON Performing Organization Address [facility] Phon e Number [facility] - [address] [address] [facility] Chloride (02/10/2018 7:49 AM CDT) Analysis Performed At Patho logist Time Signature Chloride, S CANCELED 98 - 107 02/11/2018 [facility] mmol/L 9:39 AM CDT [facility] Comment: REVISED RESULTS ----PREVIOUSLY REPORTED ---- 98, Flagged as: Normal (Reported 02/10/2018 09:04) Specimen Anatomical Collection Method Collection Time Receive d Time (Source) Location / / Volume Laterality Blood 02/10/2018 7:49 AM 8 8:00 CDT AM CDT Narrative [facility] - 02/11/2018 9:39 AM CDT Chloride, S was cancelled on 02/11/2018 at 09:39; Duplicate test request. Mercedez Coker M.D. LAB BLOOD ADD-ON Performing Organization Address [facility] Code Phon e Number [facility] - [address] [address] [facility] CBC without Differential (02/10/2018 7:49 AM CDT) P athologist Signature Hemoglobin CANCELED 13.2 - 02/11/2018 [facility] 16.6 g/dL 9:39 AM CDT [facility] Comment: REVISED RESULTS ----PREVIOUSLY REPORTED ---- 11.9, Flagged as: Abnormal_Low (Reported 02/10/2018 08:14) Hematocrit CANCELED 38.3 - 48.6 % 02/11/2018 9:[address] [facility] Comment: REVISED RESULTS ----PREVIOUSLY REPORTED ---- 35.4, Flagged as: Abnormal_Low (Reported 02/10/2018 08:14) Erythrocytes CANCELED 4.35 - 5.65 02/11/2018 9:39 AM [place] [facility] x10(12)/L CDT [facility] Comment: REVISED RESULTS ----PREVIOUSLY REPORTED ---- 3.81, Flagged as: Abnormal_Low (Reported 02/10/2018 08:14) MCV CANCELED 78.2 - 97.9 fL 02/11/2018 9:39 AM CDT [facility] S Comment: REVISED RESULTS ----PREVIOUSLY REPORTED ---- 92.9, Flagged as: Normal (Reported 02/10/2018 08:14) RBC Distrib Width CANCELED 11.8 - 14.5 % 02/11/2018 9:39 AM [facility] CD[facility] Comment: REVISED RESULTS ----PREVIOUSLY REPORTED ---- 12.6, Flagged as: Normal (Reported 02/10/2018 08:14) Platelet Count CANCELED 135 - 317 02/11/2018 9:39 AM [facility] x10(9)/L CDT [facility] Comment: REVISED RESULTS ----PREVIOUSLY REPORTED ---- 177, Flagged as: Normal (Reported 02/10/2018 08:14) Leukocytes CANCELED 3.4 - 9.6 x10(9)/L 02/11/2018 9:39 AM [facility] Comment: REVISED RESULTS ----PREVIOUSLY REPORTED ---- 3.7, Flagged as: Normal (Reported 02/10/2018 08:14) Specimen Anatomical Collection Method Collection Time Receive d Time (Source) Location / / Volume Laterality Blood 02/10/2018 7:49 AM 8 8:00 CDT AM CDT Narrative [facility] - 02/11/2018 9:39 AM CDT CBC without Differential was cancelled on 02/11/2018 at 09:39; Duplicate test request. Mercedez Coker M.D. LAB BLOOD ADD-ON Performing Organization Address City/State/ZIP Code Phon e Number [facility] - [address] [place], [place] [address] [facility] Calcium, Total (02/10/2018 7:49 AM CDT) [facility] gist Method Time Signature Calcium, CANCELED 8.8 - 02/11/2018 [facility] Total, S 10.2 9:39 AM CDT LABORATORIES - mg/dL [facility] Comment: REVISED RESULTS ----PREVIOUSLY REPORTED ---- 8.8, Flagged as: Normal (Reported 02/10/2018 09:04) Specimen Anatomical Collection Method Collection Time Receive d Time (Source) Location / / Volume Laterality Blood 02/10/2018 7:49 AM 8 8:00 CDT AM CDT Narrative [facility] - 02/11/2018 9:39 AM CDT Calcium, Total, S was cancelled on 02/11/2018 at 09:39; Duplicate test request. Mercedez Coker M.D. LAB BLOOD ADD-ON Performing Organization Address [facility] Phon e Number [facility] - [address] [address] 05 [facility] BUN (Blood Urea Nitrogen) (02/10/2018 7:49 AM CDT) [facility] Hilosoft Method Time Signature BUN (Blood CANCELED 02/11/2018 [facility] Urea mg/dL 9:39 AM CDT LABORATORIES - Nitrogen), S [facility] Comment: REVISED RESULTS ----PREVIOUSLY REPORTED ---- 55, Flagged as: Abnormal_High (Reported 02/10/2018 09:04) Specimen Anatomical Collection Method Collection Time Receive d Time (Source) Location / / Volume Laterality Blood 02/10/2018 7:49 AM 8 8:00 CDT AM CDT Narrative [facility] - 02/11/2018 9:39 AM CDT Bld Urea Nitrog(BUN), S was cancelled on 02/11/2018 at 09:39; Duplicate test request. Mercedez Coker M.D. LAB BLOOD ADD-ON Performing Organization Address City/[facility] Phon e Number [facility] - [address] [address] 05 [facility] Bicarbonate (02/10/2018 7:49 AM CDT) [facility] [employer] Method Time Signature Bicarbonate, S CANCELED 02/11/2018 [facility] mmol/L 9:39 AM CDT LABORATORIES [facility] Comment: REVISED RESULTS ----PREVIOUSLY REPORTED ---- 25, Flagged as: Normal (Reported 02/10/2018 09:04) Specimen Anatomical Collection Method Collection Time Receive d Time (Source) Location / / Volume Laterality Blood 02/10/2018 7:49 AM 8 8:00 CDT AM CDT Narrative [facility] - 02/11/2018 9:39 AM CDT Bicarbonate, S was cancelled on 02/12/20 18 at 09:39; Duplicate test request. Mercedez Coker M.D. LAB BLOOD ADD-ON Performing Organization Address City/[facility] Phon e Number [facility] - [address] [place], [place] [address] [facility] Albumin (02/10/2018 7:49 AM CDT) P athologist Signature Albumin, S CANCELED 3.5 - 5.0 02/11/2018 [facility] g/dL 9:39 AM CDT [facility] Comment: REVISED RESULTS ----PREVIOUSLY REPORTED ---- 4.2, Flagged as: Normal (Reported 02/10/2018 09:04) Specimen Anatomical Collection Method Collection Time Receive d Time (Source) Location / / Volume Laterality Blood 02/10/2018 7:49 AM 8 8:00 CDT AM CDT Narrative [facility] - 02/11/2018 9:39 AM CDT Albumin, S was cancelled on 02/11/2018 a t 09:39; Duplicate test request. Mercedez Coker M.D. LAB BLOOD ADD-ON Performing Organization Address City/[facility] Phon e Number [facility] - [address] [address] 05 [facility] documented in this encounter Visit [...] as of this encounter Care Teams Insurance Processor Relationship Specialty Start Date End Date Elsewhere, Pcp PCP - General Family Medicine 07/29/17 documented as of this encounter
--- OUTSIDE RECORDS SUMMARY | 2022-05-17 19:05 | XMS_ITS | Encounter Summary ---
:1955 Author Organization [facility] Address [address] [place] [address] Care Team Providers Name Role Phone Damaso Medina P.A.-C. 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 [address] [place] [phone] 05/23/2022 Clinical Admitting/Central Communication Scheduling 05/27/2022 Comprehensive Visit Orthopedic Surgery Markus Sams M.D., Ph.D. [address] [place] [phone] 05/29/2022 Office Visit Otorhinolaryngology Dex Matta APRN, C.N.P., M.S.N. [address] [place] [phone] 05/29/2022 Office Visit Otorhinolaryngology Nadeem Maradiaga, Jennifer., M.S. [address] [place] [address] [phone] 05/31/2022 Appointment Radiology Guilherme Matt, RASTA, Jennifer., M.S. [address] [place] [phone] 06/05/2022 Appointment Laboratory Medicine Angélica Granger P.A.-C. [address] [place] [phone] 06/19/2022 Appointment Laboratory Medicine Angélica Granger P.A.-C. [address] [place] [phone] 07/03/2022 Appointment Laboratory Medicine Angélica Granger P.A.-C. [address] [place] [phone] 07/17/2022 Appointment Laboratory Medicine Angélica Granger P.A.-C. [address] [place] [phone] 07/31/2022 Appointment Laboratory Medicine Angélica Granger P.A.-C. [address] [place] [phone] 08/14/2022 Appointment Laboratory Medicine Angélica Granger P.A.-C. [address] [place] [phone] 08/28/2022 Appointment Laboratory Angélica Royal P.A.-C. [address] [place] [phone] documented as of this encounter Visit Diagnoses Not on filedocumented in this encounter Additional Health Concerns Assessment Noted Time PHQ-9 Depression Total Score: 3 08/20/2016 12:36 PM CS T documented as of this encounter Care Teams Seed Laboratory Technician Relationship Specialty Start Date End Date Damaso Medina P.A.-C. PCP - General 12/05/16 07/28/[address] [place] [address] [phone] documented as of this encounter
--- OUTSIDE RECORDS SUMMARY | 2022-05-17 19:05 | XMS_ITS | Encounter Summary ---
:1955 Author Organization [facility] Address [address] [place] [address] Care Team Providers Name Role Phone Damaso Medina P.A.-C. 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 [address] [place] [phone] 05/23/2022 Clinical Admitting/Central Communication Scheduling 05/27/2022 Comprehensive Visit Orthopedic Surgery Marksu Sams M.D., Ph.D. [address] [place] [phone] 05/29/2022 Office Visit Otorhinolaryngology Dex Matta APRN, C.N.P., M.S.N. [address] [place] [address] [phone] 05/29/2022 Office Visit Otorhinolaryngology Nadeem Maradiaga, PMaryanne., M.S. [address] [place] [address] [phone] 05/31/2022 Appointment Radiology Guilherme Mtat MPAS, Jennifer., M.S. [address] [place] [address] [phone] 06/05/2022 Appointment Laboratory Medicine Angélica Granger P.A.-C. [address] [place] [phone] 06/19/2022 Appointment Laboratory Medicine Angélica Granger P.A.-C. [address] [place] [address] [phone] 07/03/2022 Appointment Laboratory Medicine Angélica Granger P.A.-C. [address] [place] [phone] 07/17/2022 Appointment Laboratory Medicine Angélica Granger P.A.-C. [address] [place] [phone] 07/31/2022 Appointment Laboratory Medicine Angélica Granger P.A.-C. [address] [place] [phone] 08/14/2022 Appointment Laboratory Medicine Angélica Granger P.A.-C. [address] [place] [phone] 08/28/2022 Appointment Laboratory Medicine Angélica Granger P.A.-C. [address] [place] [phone] documented as of this encounter Visit Diagnoses Not on filedocumented in this encounter Additional Health Concerns Assessment Noted Time PHQ-9 Depression Total Score: 3 08/20/2016 12:36 PM CS T documented as of this encounter Care Teams Pipe Coverer Helper Relationship Specialty Start Date End Date Damaso Medina P.A.-C. PCP - General 12/05/16 07/28/[address] [place] [address] [phone] documented as of this encounter
--- OUTSIDE RECORDS SUMMARY | 2022-05-17 19:05 | XMS_ITS | Encounter Summary ---
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 [address] [place] [phone] 05/23/2022 Clinical Admitting/Central Communication Scheduling 05/27/2022 Comprehensive Visit Orthopedic Surgery Markus Sams M.D., Ph.D. [address] [place] [phone] 05/29/2022 Office Visit Otorhinolaryngology Dex Matta APRN, C.N.P., M.S.N. [address] [place] [phone] 05/29/2022 Office Visit Otorhinolaryngology Nadeem Maradiaga, PMaryanne., M.S. [address] [place] [phone] 05/31/2022 Appointment Radiology Guilherme Matt, RASTA, PMaryanne., M.S. [address] [place] [phone] 06/05/2022 Appointment Laboratory Medicine Angélica Granger P.A.-C. [address] [place] [phone] 06/19/2022 Appointment Laboratory Medicine Angélica Granger P.A.-C. [address] [place] [phone] 07/03/2022 Appointment Laboratory Medicine Angélica Granger P.A.-C. [address] [place] [phone] 07/17/2022 Appointment Laboratory Medicine Angélica Granger P.A.-C. [address] [place] [phone] 07/31/2022 Appointment Laboratory Medicine Angélica Granger P.A.-C. [address] [place] [phone] 08/14/2022 Appointment Laboratory Medicine Angélica Granger P.A.-C. [address] [place] [phone] 08/28/2022 Appointment Laboratory Medicine Angélica Granger P.A.-C. [address] [place] [phone] documented as of this encounter Procedures Procedure Name Priority Date/Time Associated Comments Diagnosis GASTROENTEROLOGY IMAGE Routine 08/27/2017 7:35 Re sults for this EXAM AM PARAGLIDING INSTRUCTOR procedure are i n the results section. documented in this encounter Results GASTROENTEROLOGY IMAGE EXAM (08/27/2017 7:35 AM PARAGLIDING INSTRUCTOR) Specimen (Source) Anatomical Collection Method Collection Time Re ceived Time Location / / Volume Laterality 08/27/2017 7:32 AM PARAGLIDING INSTRUCTOR Narrative [facility] - 08/27/2017 8:30 AM PARAGLIDING INSTRUCTOR This order has been created and auto-finalized [...] as of this encounter Care Teams Manager Software Development Relationship Specialty Start Date End Date Elsewhere, Pcp PCP - General Family Medicine 2/6/18 documented as of this encounter
--- OUTSIDE RECORDS SUMMARY | 2022-05-17 19:05 | XMS_ITS | Encounter Summary ---
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 [address] [place] [phone] 05/23/2022 Clinical Admitting/Central Communication Scheduling 05/27/2022 Comprehensive Visit Orthopedic Surgery Markus Sams M.D., Ph.D. [address] [place] [phone] 05/29/2022 Office Visit Otorhinolaryngology Dex Matta APRN, C.N.P., M.S.N. [address] [place] [phone] 05/29/2022 Office Visit Otorhinolaryngology Nadeem Maradiaga, PEdgar.Marie., M.S. [address] [place] [phone] 05/31/2022 Appointment Radiology Guilherme Matt MPAS, PEdgar.Marie., M.S. [address] [place] [phone] 06/05/2022 Appointment Laboratory Medicine Angélica Granger P.A.-C. [address] [place] [address] [phone] 06/19/2022 Appointment Laboratory Medicine Angélica Granger P.A.-C. [address] [place] [phone] 07/03/2022 Appointment Laboratory Medicine Angélica Granger P.A.-C. [address] [place] [phone] 07/17/2022 Appointment Laboratory Medicine Angélica Granger P.A.-C. [address] [place] [phone] 07/31/2022 Appointment Laboratory Medicine Angélica Granger P.A.-C. [address] [place] [phone] 08/14/2022 Appointment Laboratory Medicine Angélica Granger P.A.-C. [address] [place] [phone] 08/28/2022 Appointment Laboratory Medicine Angélica Granger P.A.-C. [address] [place] [phone] documented as of this encounter Visit Diagnoses Not on filedocumented in this encounter Additional Health Concerns Infection Onset Date Last Indicated Resolved Time COVID19 Pending 12/13/2019 12/13/2019 12/14/2019 11:03 AM CDT COVID19 Pending 01/26/2020 01/27/2020 01/28/2020 12:12 AM CDT Assessment Noted Time PHQ-9 Depression Total Score: 3 08/20/2016 12:36 PM CS T documented as of this encounter Care Teams Gasoline Pump Installer Relationship Specialty Start Date End Date Elsewhere, Pcp PCP - General Family Medicine 07/29/17 [facility] - Laboratory Medicine 04/12/[address] [phone] documented as of this encounter
--- OUTSIDE RECORDS SUMMARY | 2022-05-17 19:05 | XMS_ITS | Encounter Summary ---
:1955 Author Organization [facility] Address [address] [place] [address] Care Team Providers Name Role Phone Unavailable Primary Care Provider Unavailable Encounter Details Date Type Department Care Team Description 12/11/2015 Hospital Encounter HX [facility] Channing Jhaveri M.D. 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 [address] [place] [phone] 05/23/2022 Clinical Admitting/Central Communication Scheduling 05/27/2022 Comprehensive Visit Orthopedic Surgery Markus Sams M.D., Ph.D. [address] [place] [phone] 05/29/2022 Office Visit Otorhinolaryngology Dex Matta APRN, CDemetriusNDemetriusP., M.S.N. [address] [place] [address] [phone] 05/29/2022 Office Visit Otorhinolaryngology Nadeem Maradiaga, Edmundo, M.S. [address] [place] [address] [phone] 05/31/2022 Appointment Radiology Guilherme Matt, RASTA, Edmundo, M.S. [address] [place] [phone] 06/05/2022 Appointment Laboratory Medicine Angélica Granger P.A.-C. [address] [place] [phone] 06/19/2022 Appointment Laboratory Medicine Angélica Granger P.A.-C. [address] [place] [phone] 07/03/2022 Appointment Laboratory Medicine Angélica Granger P.A.-C. [address] [place] [phone] 07/17/2022 Appointment Laboratory Medicine Angélica Granger P.A.-C. [address] [place] [phone] 07/31/2022 Appointment Laboratory Medicine Angélica Granger P.A.-C. [address] [place] [phone] 08/14/2022 Appointment Laboratory Medicine Angélica Granger P.A.-C. [address] [place] [phone] 08/28/2022 Appointment Laboratory Medicine Angélica Granger P.A.-C. [address] [place] [phone] documented as of this encounter Procedures Procedure [...] Results Automated Differential (12/11/2015 8:52 AM CDT) athologist Signature Absolute 1.96 1.70 - POWERCHART [...] M.D. LAB BLOOD ADD-ON Performing Organization Address City/[facility]/ZIP Code Phon e Number POWERCHART (ABNORMAL) CBC with Differential (12/11/2015 8:52 AM CDT) Analysis Performed At Patho logist Time Signature Leukocytes 5.0 3.5 - 10.5 POWERCHART [id number] Erythrocytes 3.91 (L) 4.32 - POWERCHART 5.72 [id number] Hemoglobin 12.4 (L) 13.5 - POWERCHART 17.5 [...] M.D. LAB BLOOD ADD-ON Performing Organization Address City/[facility]/ZIP Code Phon e Number POWERCHART ALT (Alanine Aminotransferase) (12/11/2015 8:52 AM CDT) P athologist Signature Alanine 22 7 - 55 POWERCHART Amniotransferas UNITL e, LD Specimen (Source) Anatomical Collection Method Collection Time Re ceived Time Location / / Volume Laterality Blood 12/11/2015 8:52 AM CDT Tiffanie Wan M.D. LAB BLOOD ADD-ON Performing Organization Address City/State/ZIP Code Phon e Number POWERCHART (ABNORMAL) Glucose, [...] M.D. LAB BLOOD ADD-ON Performing Organization Address City/[facility]/ZIP Code Phon e Number POWERCHART Alkaline Phosphatase (12/11/2015 8:52 AM CDT) P athologist Signature Alkaline 70 45 - 115 POWERCHART Phosphatase, S UNITL Specimen (Source) Anatomical Collection Method Collection Time Re ceived Time Location / / Volume Laterality Blood 12/11/2015 8:52 AM CDT Tiffanie Wan M.D. LAB BLOOD ADD-ON Performing Organization Address City/[facility]/ZIP Code Phon e Number POWERCHART Sodium (12/11/2015 [...] MGDL HXeGFR (MDRD) 31 (L) >=60 POWERCHART [id number] eGFR 38 (L) >=60 POWERCHART Black/ [id number] Vietnamese Specimen (Source) Anatomical Collection Method Collection Time [...] M.D. LAB BLOOD ADD-ON Performing Organization Address City/State/[facility] Code Phon e Number POWERCHART documented in this encounter Visit Diagnoses Not on filedocumented in this encounter Additional Health Concerns Assessment Noted Time PHQ-9 Depression Total Score: 3 05/30/2015 10:21 AM CS T documented as of this encounter
--- OUTSIDE RECORDS SUMMARY | 2022-05-17 19:05 | XMS_ITS | Encounter Summary ---
:[address] 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 [address] [place] [phone] 05/23/2022 Clinical Admitting/Central Communication Scheduling 05/27/2022 Comprehensive Visit Orthopedic Surgery Markus Sams M.D., Ph.D. [address] [place] [phone] 05/29/2022 Office Visit Otorhinolaryngology Dex Matta APRN, C.N.P., M.S.N. [address] [place] [phone] 05/29/2022 Office Visit Otorhinolaryngology Nadeem Maradiaga, PEdgar.Marie., M.S. [address] [place] [phone] 05/31/2022 Appointment Radiology Guilherme Matt MPAS, PMaryanne., M.S. [address] [place] [phone] 06/05/2022 Appointment Laboratory Medicine Angélica Granger P.A.-C. [address] [place] [phone] 06/19/2022 Appointment Laboratory Medicine Angélica Granger P.A.-C. [address] [place] [phone] 07/03/2022 Appointment Laboratory Medicine Angélica Granger P.A.-C. [address] [place] [phone] 07/17/2022 Appointment Laboratory Medicine Angélica Granger P.A.-C. [address] [place] [phone] 07/31/2022 Appointment Laboratory Medicine Angélica Granger P.A.-C. [address] [place] [phone] 08/14/2022 Appointment Laboratory Medicine Angélica Granger P.A.-C. [address] [place] [phone] 08/28/2022 Appointment Laboratory Medicine Angélica Granger P.A.-C. [address] [place] [phone] documented as of this encounter Visit Diagnoses Not on filedocumented in this encounter Additional Health Concerns Infection Onset Date Last Indicated Resolved Time COVID19 Pending 12/13/2019 12/13/2019 12/14/2019 11:03 AM CDT COVID19 Pending 01/26/2020 01/27/2020 01/28/2020 12:12 AM CDT Assessment Noted Time PHQ-9 Depression Total Score: 3 05/30/2015 10:21 AM CS T documented as of this encounter Care Teams Mustanger Relationship Specialty Start Date End Date Elsewhere, Pcp PCP - General Family Medicine 07/29/17 [facility] - Laboratory Medicine 04/12/[address] [address] documented as of this encounter
--- OUTSIDE RECORDS SUMMARY | 2022-05-17 19:05 | XMS_ITS | Encounter Summary ---
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 [address] [place] [phone] 05/23/2022 Clinical Admitting/Central Communication Scheduling 05/27/2022 Comprehensive Visit Orthopedic Surgery Markus Sams M.D., Ph.D. [address] [place] [phone] 05/29/2022 Office Visit Otorhinolaryngology Dex Matta APRN, C.N.PDemetrius, M.S.N. [address] [place] [phone] 05/29/2022 Office Visit Otorhinolaryngology Nadeem Maradiaga P.A.-C., M.S. [address] [place] [phone] 05/31/2022 Appointment Radiology Guilherme Matt MPAS, P.A.-C., M.S. [address] [place] [phone] 06/05/2022 Appointment Laboratory Medicine Angélica Granger P.A.-C. [address] [place] [phone] 06/19/2022 Appointment Laboratory Medicine Angélica Granger P.A.-C. [address] [place] [phone] 07/03/2022 Appointment Laboratory Medicine Angélica Granger P.A.-C. [address] [place] [phone] 07/17/2022 Appointment Laboratory Medicine Angélica Granger P.A.-C. [address] [place] [phone] 07/31/2022 Appointment Laboratory Medicine Angélica Granger P.A.-C. [address] [place] [phone] 08/14/2022 Appointment Laboratory Medicine Angélica Granger P.A.-C. [address] [place] [phone] 08/28/2022 Appointment Laboratory Medicine Angélica Granger P.A.-C. [address] [place] [phone] documented as of this encounter Visit Diagnoses Not on filedocumented in this encounter Additional Health Concerns Assessment Noted Time PHQ-9 Depression Total Score: 1 08/26/2017 10:50 AM CS T documented as of this encounter Care Teams Wastewater Treatment Operator Relationship Specialty Start Date End Date Elsewhere, Pcp PCP - General Family Medicine 07/29/17 documented as of this encounter
--- OUTSIDE RECORDS SUMMARY | 2022-05-17 19:05 | XMS_ITS | Encounter Summary ---
:1955 Author Organization [facility] Address [address] [place] [address] Care Team Providers Name Role Phone Damaso Medina P.A.-C. 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 Pulse 47 03/25/2017 11:09 Value from [facility] tplus. AM CDT Temperature - - [...] Description 05/22/2022 Appointment Laboratory Medicine Angélica Granger PDemetriusADurgaC. [address] [place] [phone] 05/23/2022 Clinical Admitting/Central Communication Scheduling 05/27/2022 Comprehensive Visit Orthopedic Surgery Markus Sams M.D., Ph.D. [address] [place] [phone] 05/29/2022 Office Visit Otorhinolaryngology Dex Matta APRN, C.N.P., M.S.N. [address] [place] [phone] 05/29/2022 Office Visit Otorhinolaryngology Nadeem Maradiaga P.A.-C., M.S. [address] [place] [phone] 05/31/2022 Appointment Radiology Guilherme Matt MPAS, P.A.-C., M.S. [address] [place] [phone] 06/05/2022 Appointment Laboratory Medicine Angélica Granger P.A.-C. [address] [place] [phone] 06/19/2022 Appointment Laboratory Medicine Angélica Granger P.A.-C. [address] [place] [phone] 07/03/2022 Appointment Laboratory Medicine Angélica Granger P.A.-C. [address] [place] [phone] 07/17/2022 Appointment Laboratory Medicine Angélica Granger P.A.-C. [address] [place] [phone] 07/31/2022 Appointment Laboratory Medicine Angléica Granger P.A.-C. [address] [place] [phone] 08/14/2022 Appointment Laboratory Medicine Angélica Granger P.A.-C. [address] [place] [phone] 08/28/2022 Appointment Laboratory Medicine Angélica Granger P.A.-C. [address] [place] [phone] (work) documented as of this encounter Procedures [...] Results Glucose, POCT (03/25/2017 6:35 AM CDT) [facility] gist Method Time Signature Glucose, 92 70 - 140 [facility] POCT, B MG/DL LAB[facility]ATORIES - [facility] Sample Site, Capillary [facility] Blood Gas, LABORATORIES - POCT [facility] Last Intake 3-4 hours [facility] Specimen Anatomical Collection Method Collection Time Receive d Time (Source) Location / / Volume Laterality 03/25/2017 6:35 AM 7 6:35 CDT AM CDT Historical Provider LAB POCT ORDERABLES-MANUAL Performing Organization Address City/State/ZIP Code Phon e Number [facility] LABORATORIES - [address] [place], [place] [address] [facility] V&IRAD Vascular & Intervention (03/24/2017 4:24 [...] aorta follow ed by placement of a 6-Italian Brite Tip sheath measuring 30 cm. This [...] Electronically signed by: ?? Anju More MD [phone] 25-Mar-2017 17:32 ?M. Melissa Tomlin, ?? [phone] 25-Mar-2017 17:32 Narrative 03/25/2017 5:32 PM CDT 24-Mar-2017 16:24:00 ??Exam: V&IRAD Vascular & Intervention Indications: LEFT RENAL ARTERIOGRAM +/- PARALEGALS/STENTING Renal artery stenosis ORIGINAL REPORT - 25-Mar-2017 17:32:00 V&IRAD Vascular & Intervention: Procedure Note Cheryl Torres M.D. - 09/17/2017Form atting of this note might be different from the original. 24-Mar-2017 16:24:00 Exam: V&IRAD Vascul ar & Intervention Indications: LEFT RENAL ARTERIOGRAM +/- PARALEGALS/STENTING Renal artery stenosis ORIGINAL REPORT - 25-Mar-2017 [...] minutes Electronically signed by: Anju More MD [phone] 25-Mar-2017 17:32 Lynn Torres M.D., [phone] 25-Mar-2017 17:32 Mercedez Coker M.D. IMG IR [...] 11 :56, No significant change was found [id number]^RONALD PETTIT^SIVA Procedure Note Siva Garcia M.D., Ph.D. - 8 24Mar2017 05:52 VENTRICULAR RATE 53 Sinus bradycardia Otherwise normal ECG When compared with ECG of 29-MAY-2015 11 :56, No significant change was found [id number]^RONALD PETTIT^SIVA Cheryl Torres M.D. ECG ORDERABLES Performing Organization Address City/State/ZIP Code Phon e Number [facility] documented in this encounter Visit Diagnoses Not on filedocumented in this encounter Additional Health Concerns Assessment Noted Time PHQ-9 Depression Total Score: 3 08/20/2016 12:36 PM CS T documented as of this encounter Care Teams Certified Genetic Counselor Relationship Specialty Start Date End Date Damaso Medina P.A.-C. PCP - General 12/05/16 07/28/17 [address] [place] [phone] documented as of this encounter
--- OUTSIDE RECORDS SUMMARY | 2022-05-17 19:05 | XMS_ITS | Encounter Summary ---
:1955 Author Organization [facility] Address [address] [place] [address] Care Team Providers Name Role Phone Elsewhere, Pcp Primary Care Provider Unavailable Encounter Details Date Type Department Care Team Description 07/29/2017 Orders Only Department of Family Damaso Medina, Medicine, [facility] -C. 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 [address] [place] [phone] 05/23/2022 Clinical Admitting/Central Communication Scheduling 05/27/2022 Comprehensive Visit Orthopedic Surgery Markus Sams M.D., Ph.D. [address] [place] [phone] 05/29/2022 Office Visit Otorhinolaryngology Dex Matta APRN, C.N.P., M.S.N. [address] [place] [phone] 05/29/2022 Office Visit Otorhinolaryngology Nadeem Maradiaga, P.Murtaza.-Arley., M.S. [address] [place] [phone] 05/31/2022 Appointment Radiology Guilherme Matt MPAS, P.Murtaza.Marie., M.S. [address] [place] [address] [phone] 06/05/2022 Appointment Laboratory Medicine Angélica Granger P.A.-C. [address] [place] [address] [phone] 06/19/2022 Appointment Laboratory Medicine Angélica Granger P.A.-C. [address] [place] [phone] 07/03/2022 Appointment Laboratory Medicine Angélica Granger P.A.-C. [address] [place] [phone] 07/17/2022 Appointment Laboratory Medicine Angélica Granger P.A.-C. [address] [place] [phone] 07/31/2022 Appointment Laboratory Medicine Angélica Granger P.A.-C. [address] [place] [phone] 08/14/2022 Appointment Laboratory Medicine Angélica Granger P.A.-C. [address] [place] [phone] 08/28/2022 Appointment Laboratory Medicine Angélica Granger P.A.-C. [address] [place] [phone] documented as of this encounter Visit Diagnoses Not on filedocumented in this encounter Additional Health Concerns Assessment Noted Time PHQ-9 Depression Total Score: 3 08/20/2016 12:36 PM CS T documented as of this encounter Care Teams Heavy Equipment Service Technician Relationship Specialty Start Date End Date Elsewhere, Pcp PCP - General Family Medicine 07/29/17 documented as of this encounter
--- OUTSIDE RECORDS SUMMARY | 2022-05-17 19:05 | XMS_ITS | Encounter Summary ---
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 [address] [place] [address] 05/29/2022 Office Visit Otorhinolaryngology Dex Matta APRN, CDemetriusNFabrice., M.S.N. [address] [place] [phone] 05/29/2022 Office Visit Otorhinolaryngology Nadeem Maradiaga, Edmundo, M.S. [address] [place] [phone] 05/31/2022 Appointment Radiology Guilherme Matt MPAS, P.A.-C., M.S. [address] [place] [phone] 06/05/2022 Appointment Laboratory Medicine Angélica Granger P.A.-C. [address] [place] [phone] 06/19/2022 Appointment Laboratory Medicine Angélica Granger P.A.-C. [address] [place] [phone] 07/03/2022 Appointment Laboratory Medicine Angélica Granger P.A.-C. [address] [place] [phone] 07/17/2022 Appointment Laboratory Medicine Angélica Granger P.A.-C. [address] [place] [phone] 07/31/2022 Appointment Laboratory Medicine Angélica Granger P.A.-C. [address] [place] [phone] 08/14/2022 Appointment Laboratory Medicine Angélica Granger P.A.-C. [address] [place] [phone] 08/28/2022 Appointment Laboratory Medicine Angélica Granger P.A.-C. [address] [place] [phone] documented as of this encounter Visit Diagnoses Not on filedocumented in this encounter Additional Health Concerns Assessment Noted Time PHQ-9 Depression Total Score: 3 08/20/2016 12:36 PM EUGENIO T documented as of this encounter Care Teams Shipping Weigher Relationship Specialty Start Date End Date Elsewhere, Pcp PCP - General Family Medicine 07/29/17 documented as of this encounter
--- OUTSIDE RECORDS SUMMARY | 2022-05-17 19:06 | XMS_ITS | Encounter Summary ---
:1955 Author Organization [facility] Address [address] [place] [address] Care Team Providers Name Role Phone Unavailable Primary Care Provider Unavailable Encounter Details Date Type Department Care Team Description 11/13/2015 Hospital Encounter HX [facility] Channing Jhaveri M.D. 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 [address] [place] [phone] 05/23/2022 Clinical Admitting/Central Communication Scheduling 05/27/2022 Comprehensive Visit Orthopedic Surgery Markus Sams M.D., Ph.D. [address] [place] [phone] 05/29/2022 Office Visit Otorhinolaryngology Dex Matta APRN, CDemetriusNDemetriusP., M.S.N. [address] [place] [phone] 05/29/2022 Office Visit Otorhinolaryngology Nadeem Maradiaga, Edmundo, M.S. [address] [place] [address] [phone] 05/31/2022 Appointment Radiology Guilherme Matt, RASTA, Edmundo, M.S. [address] [place] [phone] 06/05/2022 Appointment Laboratory Medicine Angélica Granger P.A.-C. [address] [place] [phone] 06/19/2022 Appointment Laboratory Medicine Angélica Granger P.A.-C. [address] [place] [phone] 07/03/2022 Appointment Laboratory Medicine Angélica Granger P.A.-C. [address] [place] [phone] 07/17/2022 Appointment Laboratory Medicine Angélica Granger P.A.-C. [address] [place] [phone] 07/31/2022 Appointment Laboratory Medicine Angélica Granger P.A.-C. [address] [place] [phone] 08/14/2022 Appointment Laboratory Medicine Angélica Granger P.A.-C. [address] [place] [phone] 08/28/2022 Appointment Laboratory Medicine Angélica Granger P.A.-C. [address] [place] [phone] documented as of this encounter Procedures Procedure [...] M.D. LAB BLOOD ADD-ON Performing Organization Address City/[facility]/ZIP Code Phon e Number POWERCHART (ABNORMAL) CBC with Differential (11/13/2015 8:52 AM CDT) Analysis Performed At Patho logist Time Signature Leukocytes 5.0 3.5 - 10.5 POWERCHART X109L Erythrocytes 3.84 (L) 4.32 - POWERCHART 5.72 [id number] Hemoglobin 12.3 (L) 13.5 - POWERCHART 17.5 [...] M.D. LAB BLOOD ADD-ON Performing Organization Address City/[facility]/ZIP Code Phon e Number POWERCHART Sodium (11/13/2015 8:52 AM CDT) P athologist Signature Sodium, S 140 135 - 145 POWERCHART MMOLL Specimen Anatomical Collection Method Collection Time Receive d Time (Source) Location / / Volume Laterality Blood 11/13/2015 8:52 AM 6 8:52 CDT AM CDT Tiffanie Wan M.D. LAB BLOOD ADD-ON Performing Organization Address City/[facility]/ZIP Code Phon e Number POWERCHART Bilirubin, Total [...] M.D. LAB BLOOD ADD-ON Performing Organization Address City/[facility]/ZIP Code Phon e Number POWERCHART Glucose (11/13/2015 8:52 AM CDT) P athologist Signature Glucose 109 70 - 139 POWERCHART MGDL Specimen (Source) Anatomical Collection Method Collection Time Re ceived Time Location / / Volume Laterality Blood 11/13/2015 8:52 AM CDT Tiffanie Wan M.D. LAB BLOOD ADD-ON Performing Organization Address City/[facility]/ZIP Code Phon e Number POWERCHART Alkaline Phosphatase [...] MGDL HXeGFR (MDRD) 35 (L) >=60 POWERCHART [id number] eGFR 42 (L) >=60 POWERCHART Black/ [id number] Kenyan Specimen (Source) Anatomical Collection Method Collection Time [...]
--- OUTSIDE RECORDS SUMMARY | 2022-05-17 19:06 | XMS_ITS | Encounter Summary ---
:1955 Author Organization [facility] Address [address] [place] [address] Care Team Providers Name Role Phone Unavailable Primary Care Provider Unavailable Encounter Details Date Type Department Care Team Description 09/18/2015 Hospital Encounter HX [facility] Kg Medina P.A.-C. [address] [place] [address] (Wo rk) Social History [...] AND PLATER documented as of this encounter Last Filed [...] Laboratory Medicine Angélica Granger P.A.-C. [address] [place] [phone] 05/23/2022 Clinical Admitting/Central Communication Scheduling 05/27/2022 Comprehensive Visit Orthopedic Surgery Markus Sams M.D., Ph.D. [address] [place] [address] 05/29/2022 Office Visit Otorhinolaryngology Dex Matta APRN CDemetriusNJuan Miguel, M.S.N. [address] [place] [phone] 05/29/2022 Office Visit Otorhinolaryngology Nadeem Maradiaga P.A.-C., M.S. [address] [place] [address] [phone] 05/31/2022 Appointment Radiology Guilherme Matt MPAS, P.A.-C., M.S. [address] [place] [address] [phone] 06/05/2022 Appointment Laboratory Medicine Angélica Granger P.A.-C. [address] [place] [address] [phone] 06/19/2022 Appointment Laboratory Medicine Angélica Granger P.A.-C. [address] [place] [address] [phone] 07/03/2022 Appointment Laboratory Medicine Angélica Granger P.A.-C. [address] [place] [address] [phone] 07/17/2022 Appointment Laboratory Medicine Angélica Granger P.A.-C. [address] [place] [phone] 07/31/2022 Appointment Laboratory Medicine Angélica Granger P.A.-C. [address] [place] [phone] 08/14/2022 Appointment Laboratory Medicine Angélica Granger P.A.-C. [address] [place] [phone] 08/28/2022 Appointment Laboratory Medicine Angélica Granger P.A.-C. [address] [place] [phone] documented as of this encounter Procedures Procedure [...] Results Automated Differential (09/18/2015 9:26 AM CDT) athologist Signature Absolute 4.38 1.70 - POWERCHART Neutrophils 7.00 109L Lymphocytes 2.28 0.90 - POWERCHART 2.90 X109L Monocytes 0.77 0.30 - POWERCHART 0.90 X109L Eosinophils 0.21 0.05 - POWERCHART 0.50 X109L Absolute 0.02 0.00 - POWERCHART Basophil 0.30 X109L Specimen Anatomical Collection Method Collection Time Receive d Time (Source) Location / / Volume Laterality Blood 09/18/2015 9:26 AM 6 9:26 CDT AM CDT Tiffanie Wan M.D. LAB BLOOD ADD-ON Performing Organization Address City/State/ZIP Code Phon e Number POWERCHART (ABNORMAL) CBC with Differential (09/18/2015 9:26 AM CDT) Analysis Performed At Patho logist Time Signature Leukocytes 7.7 3.5 - 10.5 POWERCHART X109L Erythrocytes 4.05 (L) 4.32 - POWERCHART 5.72 [id number] Hemoglobin 12.9 (L) 13.5 - POWERCHART 17.5 [...] MGDL HXeGFR (MDRD) 34 (L) >=60 POWERCHART [id number] eGFR 41 (L) >=60 POWERCHART Black/ [id number] Indian Specimen (Source) Anatomical Collection Method Collection Time [...] City/State/ZIP Code Phon e Number POWERCHART Sodium (09/18/2015 9:26 [...]
--- OUTSIDE RECORDS SUMMARY | 2022-05-17 19:06 | XMS_ITS | Encounter Summary ---
:1955 Author Organization [facility] Address [address] [place] [address] Care Team Providers Name Role Phone Unavailable Primary Care Provider Unavailable Encounter Details Date Type Department Care Team Description 10/04/2015 Hospital Encounter HX [facility] FAMILYPRA Kg Santoyo P.A.-C. 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 - 10/04/2015 2:33 PM CDT [id number] CHIEF COMPLAINT/REASON FOR VISIT Sinus congestion. HISTORY [...] SANTOYO PA-C On: 10/05/2015 08:44 AM Source: [facility] [email or web address] Document Id: [id number] documented in this encounter Miscellaneous Notes Miscellaneous - Betty Lipscomb, RDemetriusN. - 08/27/2016 4:38 PM CST *Medication Refill Msg Document Contains Addenda Addendum by BETTY LIPSCOMB RN on August 28, 2016 10:28:07 CARDROOM WORKER informed pharmacy Addendum by MIRTHA SANTOYO PA-C on August 28, 2016 10:18:12 CARDROOM WORKER From: MIRTHA SANTOYO PA-C To: BETTY LIPSCOMB RN; Sent: 08/28/2016 10:18:12 CARDROOM WORKER Subject: RE: *Medication Refill Msg He follows in [place] for this and gets it filled down there From: BETTY LIPSCOMB RN To: MIRTHA SANTOYO PA-C; Sent: 08/27/2016 16:38:28 CARDROOM WORKER Subject: *Medication Refill Msg Caller is: ( [...] Call to Pharmacy ( ) Patient will cone picker Script ( ) Mail Rx to Patient Source: [facility] POWERCHART Document Id: [id number] Electronically signed by Conversion, [facility] Relocation Services Specialist [id number] at 11/16/2016 8:27 PM CDT Miscellaneous - Mirtha Santoyo P.A.-C. - 10/04/2015 3:16 PM CDT Ambulatory Patient Summary [address] [id number] Visit Information Name: BRUCE SINGH [facility] Number: [id number] Current Date: 10/04/2015 15:16:16 Physicians [...] nasal (Flonase 50 mcg/inh nasal spray) 2 Dallas(s), Nasal, once a day New Routed to [address] [id number] lamoTRIgine (lamoTRIgine 100 mg oral tablet) 1 [...] if you dont have one. Go to [email or web address] and click on Create Your Account. Then, follow the directions to complete the online form. Youll be asked for your [facility] number which you can find at the top of this document. Your Goals/Additional instructions: Source: [facility] POWERCHART Document Id: [id number] Miscellaneous - Mirtha Santoyo P.A.-C. - 10/04/2015 3:16 PM CDT Ambulatory Discharge Medication List [address] [id number] Visit Information Name: BRUCE SINGH [facility] Number: [id number] Visit Date: 10/04/2015 15:16:16 Attending [...] nasal (Flonase 50 mcg/inh nasal spray) 2 Dallas(s), Nasal, once a day New Routed to [address] [id number] lamoTRIgine (lamoTRIgine 100 mg oral tablet) 1 [...] PA-C Signed On:04-OCT-2015 15:16:00 Additional Information: Source: [facility] POWERCHART Document Id: [id number] Miscellaneous - Eugenia Hong, L.P.N. - 10/04/2015 2:44 PM CDT Adult Vehicle Assembler Intake/History Adult Vehicle Assembler Intake/History Entered On: 10/04/2015 14:47 CDT Performed [...] Information Given By : Patient Languages : Ethiopian Is Patient Female and 13-50 no hysterectomy [...] Castro LPN - 10/04/2015 14:44 CDT Source: [employer] Document Id: [id number] documented in this encounter Plan of Treatment Upcoming Encounters Date Type Specialty Care Team Description 05/22/2022 Appointment Laboratory Medicine Angélica Granger P.A.-C. [address] [place] [phone] 05/23/2022 Clinical Admitting/Central Communication Scheduling 05/27/2022 Comprehensive Visit Orthopedic Surgery Markus Sams M.D., Ph.D. [address] [place] [phone] 05/29/2022 Office Visit Otorhinolaryngology Dex Matta APRN, C.N.P., M.S.N. [address] [place] [phone] 05/29/2022 Office Visit Otorhinolaryngology Nadeem Maradiaga P.A.-C., M.S. [address] [place] [phone] 05/31/2022 Appointment Radiology Guilherme Matt MPAS, P.A.-C., M.S. [address] [place] [phone] 06/05/2022 Appointment Laboratory Medicine Angélica Granger P.A.-C. [address] [place] [phone] 06/19/2022 Appointment Laboratory Medicine Angélica Granger P.A.-C. [address] [place] [phone] 07/03/2022 Appointment Laboratory Medicine Angélica Granger P.A.-C. [address] [place] [phone] 07/17/2022 Appointment Laboratory Medicine Angélica Granger P.A.-C. [address] [place] [phone] 07/31/2022 Appointment Laboratory Medicine Angélica Granger P.A.-C. [address] [place] [phone] 08/14/2022 Appointment Laboratory Medicine Angélica Granger P.A.-C. [address] [place] [phone] 08/28/2022 Appointment Laboratory Medicine Angélica Granger P.A.-C. [address] [place] [phone] documented as of this encounter Visit Diagnoses Not on filedocumented in this encounter Additional Health Concerns Assessment Noted Time PHQ-9 Depression Total Score: 3 05/30/2015 10:21 AM CS T documented as of this encounter
--- OUTSIDE RECORDS SUMMARY | 2022-05-17 19:06 | XMS_ITS | Encounter Summary ---
:1955 Author Organization [facility] Address [address] [place] [address] Care Team Providers Name Role Phone Unavailable Primary Care Provider Unavailable Encounter Details Date Type Department Care Team Description 07/25/2015 Hospital Encounter HX [facility] Dari Wan M.D. 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 [address] [place] [phone] 05/23/2022 Clinical Admitting/Central Communication Scheduling 05/27/2022 Comprehensive Visit Orthopedic Surgery Makrus Sams M.D., Ph.D. [address] [place] [address] 05/29/2022 Office Visit Otorhinolaryngology Dex Matta APRN, CDemetriusNFabrice., M.S.N. [address] [place] [phone] 05/29/2022 Office Visit Otorhinolaryngology Nadeem Maradiaga, Edmundo, M.S. [address] [place] [phone] 05/31/2022 Appointment Radiology Guilherme Matt MPAS, P.A.-C., M.S. [address] [place] [phone] 06/05/2022 Appointment Laboratory Medicine Angélica Granger P.A.-C. [address] [place] [phone] 06/19/2022 Appointment Laboratory Medicine Angélica Granger P.A.-C. [address] [place] [phone] 07/03/2022 Appointment Laboratory Medicine Angélica Granger P.A.-C. [address] [place] [phone] 07/17/2022 Appointment Laboratory Medicine Angélica Granger P.A.-C. [address] [place] [phone] 07/31/2022 Appointment Laboratory Medicine Angélica Granger P.A.-C. [address] [place] [phone] 08/14/2022 Appointment Laboratory Medicine Angélica Granger P.A.-C. [address] [place] [phone] 08/28/2022 Appointment Laboratory Medicine Angélica Granger P.A.-C. [address] [place] [phone] documented as of this encounter Procedures Procedure Name Priority Date/Time Associated Comments Diagnosis GLUCOSE, P Routine 07/25/2015 10:33 Results for this AM MOWER OPERATOR procedure are i n the results section. AUTOMATED DIFFERENTIAL, Routine 07/25/2015 10:33 Results for this B AM MOWER OPERATOR procedure are i n the results section. CBC WITH DIFFERENTIAL, B Routine 07/25/2015 10:33 Results for this AM MOWER OPERATOR procedure are i n the results section. ASPARTATE Routine 07/25/2015 10:33 Results for this AMINOTRANSFERASE (AST), AM MOWER OPERATOR proc edure are in S/P the results section. SODIUM, S/P Routine 07/25/2015 10:33 Results for this AM MOWER OPERATOR procedure are i n the results section. POTASSIUM, S/P Routine 07/25/2015 10:33 Results f or this AM MOWER OPERATOR procedure are i n the results section. ALKALINE PHOSPHATASE, Routine 07/25/2015 10:33 Re sults for this S/P AM MOWER OPERATOR procedure are i n the results section. CREATININE WITH EGFR, Routine 07/25/2015 10:33 Re sults for this S/P AM MOWER OPERATOR procedure are i n the results section. BILIRUBIN, TOT, S/P Routine 07/25/2015 10:33 Resu lts for this AM MOWER OPERATOR procedure are i n the results section. documented in this encounter Results Automated Differential (07/25/2015 10:33 AM MOWER OPERATOR) P athologist Signature Absolute 2.35 1.70 - POWERCHART Neutrophils 7.00 109L Lymphocytes 1.99 0.90 - POWERCHART 2.90 X109L Monocytes 0.70 0.30 - POWERCHART 0.90 X109L Eosinophils 0.22 0.05 - POWERCHART 0.50 X109L Absolute 0.02 0.00 - POWERCHART Basophil 0.30 X109L Specimen Anatomical Collection Method Collection Time Receive d Time (Source) Location / / Volume Laterality Blood 07/25/2015 10:33 07/25/2015 AM MOWER OPERATOR 10:33 AM MOWER OPERATOR Tiffanie Wan M.D. LAB BLOOD ADD-ON Performing Organization Address City/State/ZIP Code Phon e Number POWERCHART (ABNORMAL) CBC with Differential (07/25/2015 10:33 AM MOWER OPERATOR) Analysis Performed At Patho logist Time Signature Leukocytes 5.3 3.5 - 10.5 POWERCHART X109L Erythrocytes 4.33 4.32 - POWERCHART 5.72 B1079H Hemoglobin 13.2 (L) 13.5 - POWERCHART 17.5 GDL Hematocrit 41.2 38.8 - POWERCHART 50.0 MCV 95.2 (H) 81.0 - POWERCHART 95.0 [place] Platelet Count 178 150 - 450 POWERCHART X109L HX RDW 13.0 11.8 - POWERCHART 15.6 Specimen (Source) Anatomical Collection Method Collection Time Re ceived Time Location / / Volume Laterality Blood 07/25/2015 10:33 AM MOWER OPERATOR Tiffanie Wan M.D. LAB BLOOD ADD-ON Performing Organization Address City/State/ZIP Code Phon e Number POWERCHART Sodium (07/25/2015 10:33 AM MOWER OPERATOR) P athologist Signature Sodium, S 140 135 - 145 POWERCHART MMOLL Specimen (Source) Anatomical Collection Method Collection Time Re ceived Time Location / / Volume Laterality Blood 07/25/2015 10:33 AM MOWER OPERATOR Tiffanie Wan M.D. LAB BLOOD ADD-ON Performing Organization Address City/State/ZIP Code Phon e Number POWERCHART Potassium (07/25/2015 10:33 AM MOWER OPERATOR) P athologist Signature Potassium, S 4.5 3.6 - 5.2 POWERCHART MMOLL Specimen (Source) Anatomical Collection Method Collection Time Re ceived Time Location / / Volume Laterality Blood 07/25/2015 10:33 AM MOWER OPERATOR Tiffanie Wan M.D. LAB BLOOD ADD-ON Performing Organization Address City/State/ZIP Code Phon e Number POWERCHART Glucose (07/25/2015 10:33 AM MOWER OPERATOR) P athologist Signature Glucose 111 70 - 139 POWERCHART MGDL Specimen (Source) Anatomical Collection Method Collection Time Re ceived Time Location / / Volume Laterality Blood 07/25/2015 10:33 AM MOWER OPERATOR Tiffanie Wan M.D. LAB BLOOD ADD-ON Performing Organization Address City/State/ZIP Code Phon e Number POWERCHART (ABNORMAL) Creatinine with eGFR (07/25/2015 10:33 AM MOWER OPERATOR) P athologist Signature Creatinine 2.0 (H) 0.8 - 1.3 POWERCHART MGDL HXeGFR (MDRD) 34 (L) >=60 POWERCHART [id number] eGFR 41 (L) >=60 POWERCHART Black/ [id number] [place] Specimen (Source) Anatomical Collection Method Collection Time Re ceived Time Location / / Volume Laterality Blood 07/25/2015 10:33 AM MOWER OPERATOR Tiffanie Wan M.D. LAB BLOOD ADD-ON Performing Organization Address City/[facility]/ZIP Code Phon e Number POWERCHART Bilirubin, Total (07/25/2015 10:33 AM MOWER OPERATOR) P athologist Signature Bilirubin, 0.4 0.1 - 1.0 POWERCHART Total, S MGDL Specimen (Source) Anatomical Collection Method Collection Time Re ceived Time Location / / Volume Laterality Blood 07/25/2015 10:33 AM MOWER OPERATOR Tiffanie Wan M.D. LAB BLOOD ADD-ON Performing Organization Address City/[facility]/ZIP Code Phon e Number POWERCHART AST (Aspartate Aminotransferase) (07/25/2015 10:33 AM MOWER OPERATOR) [facility] gist Method Time Signature Aspartate 21 8 - 48 POWERCHART Aminotransferase UNITL (AST), S Specimen (Source) Anatomical Collection Method Collection Time Re ceived Time Location / / Volume Laterality Blood 07/25/2015 10:33 AM MOWER OPERATOR Tiffanie Wan M.D. LAB BLOOD ADD-ON Performing Organization Address City/State/ZIP Code Phon e Number POWERCHART Alkaline Phosphatase (07/25/2015 10:33 AM MOWER OPERATOR) P athologist Signature Alkaline 71 45 - 115 POWERCHART Phosphatase, S UNITL Specimen (Source) Anatomical Collection Method Collection Time Re ceived Time Location / / Volume Laterality Blood 07/25/2015 10:33 AM MOWER OPERATOR Tiffanie Wan M.D. LAB BLOOD ADD-ON Performing Organization Address City/State/ZIP Code Phon e Number POWERCHART documented in this encounter Visit Diagnoses Not on filedocumented in this encounter Additional Health Concerns Assessment Noted Time PHQ-9 Depression Total Score: 3 05/30/2015 10:21 AM CS T documented as of this encounter
--- OUTSIDE RECORDS SUMMARY | 2022-05-17 19:06 | XMS_ITS | Encounter Summary ---
:1955 Author Organization [facility] Address [address] [place] [address] Care Team Providers Name Role Phone Unavailable Primary Care Provider Unavailable Encounter Details Date Type Department Care Team Description 11/23/2015 Hospital Encounter HX [facility] FAMILYPRA Gail Knight M.D. 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 RFR Have admit symptoms improved : Yes RFR Pt admit symptoms summarize : blood pressure 145/85 RFR How does pt feel they are managing : 3. No questions/concerns RFR Pt managing summarize : patient informed me that he is seeing a Dr Cole at [facility] and hasn't been here in awhile. he is following up with Rosalio garnica and will inform Dr. Cole of his procedure. He thought i was calling from [facility] [place]. BETTY AREVALO RN - 03/26/2017 10:14 CDT Source: [facility] POWERCHART Document Id: [id number] CDT!15 documented in this encounter Medications at [...] liver transplant with recent lab f/u at [facility], no changes in med indicated EENT: No [...] extremities bilaterally NEURO: Aware and oriented x3. 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 PSYCH: pt is euthymic. Pt shows no delusions or hallucinations. Pt denies any violent ideation. No psychomotor agitation present. Speech normal flow. Insight adequate. IMPRESSION/REPORT/PLAN Clostridium Difficile Infection Recovering, had completed oral flagyl. Ordered: OV Est Pt Level 4 - 72159 - 25 min Thyroglobulin Antibody-[place] 22729 Thyroid Stimulating Hormone Thyroperoxidase Antibody-[place] 20866 Goiter Simple Possible in ddx. Get thyroid u/s. Labs per EMR orders. Ordered: OV Est Pt Level 4 - 94701 - 25 min Insufficiency Renal NOS At baseline Ordered: OV Est Pt Level 4 - 92873 - 25 min Thyroglobulin Antibody-[place] 35993 Thyroid Stimulating Hormone Thyroperoxidase Antibody-[place] 56913 Transplant Liver (OLT) Followed at [facility] Ordered: OV Est Pt Level 4 - 52783 - 25 min Thyroglobulin Antibody-[place] 67159 Thyroid Stimulating Hormone Thyroperoxidase Antibody-[place] 69908 Orders: US Thyroid Electronically Signed By: HE KNIGHT MD On: 11/23/2015 09:22 AM Source: [employer] POWERCHART Document Id: [id number] documented in this encounter Nursing Notes He [...] fatigue ?? More frequent bowel movements ?? 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 Weight loss ?? Hair [...] thyroid (hyperthyroidism), or underactive thyroid (hypothyroidism). ?? [id number] [facility], [address] [place] [address], [place] [address]. All rights reserved. This information is not intended as a substitute for professional medical care. Always follow your healthcare professional's instructions. This document has images extracted. Please consider using [employer] for all your patient education needs. Source: [facility] POWERCHART Document Id: [id number] He Knight M.D. - 11/23/2015 9:23 AM [...] fatigue ?? More frequent bowel movements ?? 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 Weight loss ?? Hair [...] thyroid (hyperthyroidism), or underactive thyroid (hypothyroidism). ?? 0011-2983 [place] [address]. All rights reserved. This information is not intended as a substitute for professional medical care. Always follow your healthcare professional's instructions. This document has images extracted. Please consider using [employer] for all your patient education needs. Source: [email or web address] Document Id: [id number] documented in this encounter Miscellaneous Notes Miscellaneous - Diane Smith - 08/19/2016 1:06 PM CST Quality Measures Quality Measures Entered On: 11/13/2016 13:06 CDT Performed On: 08/19/2016 13:06 SITE INTERPRETER by DIANE SMITH LPN Labs Outside Lab Cholesterol : 226 mg/dL Outside Lab HDL : 49 mg/dL Outside Lab LDL : 146 mg/dL Outside Lab Triglycerides : 157 mg/dL DIANE SMITH LPN - 11/13/2016 13:06 CDT Source: [facility] [employer] Document Id: [id number] CDT!6 Miscellaneous - He Knight M.D. - 11/23/2015 9:23 AM CDT Ambulatory Patient Summary [address] [place] [id number] Visit Information Name: BRUCE CUELLO [facility] Number: [id number] Current Date: 11/23/2015 09:23:26 Physicians [...] nasal (Flonase 50 mcg/inh nasal spray) 2 [place](s), Nasal, once a day lamoTRIgine (lamoTRIgine 100 [...] fatigue ?? More frequent bowel movements ?? 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 Weight loss ?? Hair [...] thyroid (hyperthyroidism), or underactive thyroid (hypothyroidism). ?? [id number] [place] [address]. All rights reserved. This information is not [...] if you dont have one. Go to [email or web address] and click on Create Your Account. Then, follow the directions to complete the online form. Youll be asked for your [facility] number which you can find at the top of this document. Your Goals/Additional instructions: This document has images extracted. Please consider using [employer] for all your patient education needs. Source: [facility] POWERCHART Document Id: [id number] Miscellaneous - He Knight M.D. - 11/23/2015 9:23 AM CDT Ambulatory Discharge Medication List [place] [address] [facility] [address] [place], [place] [id number] Visit Information Name: BR[facility] CUELLO [facility] Number: [id number] Visit Date: 11/23/2015 09:23:25 Attending [...] nasal (Flonase 50 mcg/inh nasal spray) 2 Benton(s), Nasal, once a day lamoTRIgine (lamoTRIgine 100 [...] MD Signed On:23-NOV-2015 09:23:06 Additional Information: Source: [facility] POWERCHART Document Id: [id number] Miscellaneous - Sha Sutton C.M.ADemetrius - 11/23/2015 8:25 AM CDT Adult Supervisor Partial Denture Department Intake/History Adult Supervisor Partial Denture Department Intake/History Entered On: 11/23/2015 8:27 CDT Performed On: 11/23/2015 8:25 CDT by SHA SUTTON [facility] Intake Chief Complaint : Multiple issues, thyroid [...] Mass Index : 27.46 kg/m2 SHA SUTTON [facility] - 11/23/2015 8:25 CDT General Info Information Given By : Patient Preferred Communication Mode : Verbal Languages : Greek Is Patient Female and 13-50 no hysterectomy : SHA Urrutia [facility] - 11/23/2015 8:25 CDT Subjective Pain Symptoms : SHA Urrutia [facility] - 11/23/2015 8:25 CDT Dependent Habits Exposure to Tobacco Smoke : Care provider denies smoking in home, Other: no smoke Smoking Status : Never smoker Tobacco 2A : No Tobacco Use/Currently Using : No Tobacco Use/Last 30 Days : No Tobacco Use/Last 12 months : SHA Urrutia [facility] - 11/23/2015 8:25 CDT Source: [facility] POWERCHART Document Id: [id number] CDT!30 documented in this encounter Plan of Treatment Upcoming Encounters Date Type Specialty Care Team Description 05/22/2022 Appointment Laboratory Medicine Angélica Granger P.A.-C. [address] [place] [phone] 05/23/2022 Clinical Admitting/Central Communication Scheduling 05/27/2022 Comprehensive Visit Orthopedic Surgery Markus Sams M.D., Ph.D. [address] [place] [phone] 05/29/2022 Office Visit Otorhinolaryngology Dex Matta APRN, C.N.P., M.S.N. [address] [place] [phone] 05/29/2022 Office Visit Otorhinolaryngology Nadeem Maradiaga, PMaryanne., M.S. [address] [place] [phone] 05/31/2022 Appointment Radiology Guilherme Matt, RASTA, PMaryanne., M.S. [address] [place] [phone] 06/05/2022 Appointment Laboratory Medicine Angélica Granger P.A.-C. [address] [place] [phone] 06/19/2022 Appointment Laboratory Medicine Angélica Granger P.A.-C. [address] [place] [phone] 07/03/2022 Appointment Laboratory Medicine Angélica Granger P.A.-C. [address] [place] [phone] 07/17/2022 Appointment Laboratory Medicine Darlinganeesh Angélica Stern P.A.-C. [address] [place] [phone] 07/31/2022 Appointment Laboratory Medicine Bárbara Angélica Stern P.A.-C. [address] [place] [address] [phone] 08/14/2022 Appointment Laboratory Medicine Bárbara Angélica Stern P.A.-C. [address] [place] [phone] 08/28/2022 Appointment Laboratory Medicine Bárbara Angélica Stern P.A.-C. [address] [place] [address] [phone] documented as of this encounter Procedures Procedure [...] Thyroperoxidase (TPO) Antibodies (11/23/2015 9:16 AM CDT) [facility] Method Time Signature Thyroperoxidase Ab, 0.3 <9.0 POWERCHART S INTUML Comment: Test Performed by: [address] [address] Inserting Machine Operator: Curt Akers II, M.D., Ph.D. Specimen (Source) Anatomical Collection Method Collection Time Re ceived Time Location / / Volume Laterality Blood 11/23/2015 9:16 AM CDT He Knight M.D. LAB BLOOD ADD-ON Performing Organization Address City/State/ZIP Code Phon e Number POWERCHART Thyroglobulin Antibody (11/23/2015 9:16 AM CDT) Patholo gist Method Time Signature Thyroglobulin <1.8 <4.0 INTUML POWERCHART Antibody, S Comment: ADDITIONAL INFORMATIO N The thyroglobulin antibody testing metho d is an immunoenzymatic assay manufactured by [employer]. and performed on the [employer] DXI 800. Values obtained from different assay met hods or kits may be different and cannot be used inte rchangeably. The results cannot be interpreted as abs olute evidence for the presence or absence of malignant disease. Test Performed by: [place] [address] Inserting Machine Operator: Curt Akers II, M.D., Ph.D. Specimen (Source) Anatomical Collection Method Collection Time Re ceived Time Location / / Volume Laterality Blood 11/23/2015 9:16 AM CDT He Knight M.D. LAB BLOOD NON ADD-ON Performing Organization Address City/State/ZIP Code Phon e Number POWERCHART (ABNORMAL) Thyroid-Stimulating Hormone-Sensitive [...]
--- OUTSIDE RECORDS SUMMARY | 2022-05-17 19:06 | XMS_ITS | Encounter Summary ---
:1955 Author Organization [facility] Address [address] [place] [address] Care Team Providers Name Role Phone Unavailable Primary Care Provider Unavailable Encounter Details Date Type Department Care Team Description 10/02/2015 Hospital Encounter HX [facility] Dari Wan M.D. 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 [address] [place] [phone] 05/23/2022 Clinical Admitting/Central Communication Scheduling 05/27/2022 Comprehensive Visit Orthopedic Surgery Markus Sams M.D., Ph.D. [address] [place] [phone] 05/29/2022 Office Visit Otorhinolaryngology Dex Matta APRN, CDemetriusNFabrice., M.S.N. [address] [place] [phone] 05/29/2022 Office Visit Otorhinolaryngology Nadeem Maradiaga, Edmundo, M.S. [address] [place] [phone] 05/31/2022 Appointment Radiology Guilherme Matt MPAS, P.A.-C., M.S. [address] [place] [phone] 06/05/2022 Appointment Laboratory Medicine Angélica Granger P.A.-C. [address] [place] [phone] 06/19/2022 Appointment Laboratory Medicine Angélica Granger P.A.-C. [address] [place] [phone] 07/03/2022 Appointment Laboratory Medicine Angélica Granger P.A.-C. [address] [place] [phone] 07/17/2022 Appointment Laboratory Medicine Angélica Granger P.A.-C. [address] [place] [phone] 07/31/2022 Appointment Laboratory Medicine Angélica Granger P.A.-C. [address] [place] [phone] 08/14/2022 Appointment Laboratory Medicine Angélica Granger P.A.-C. [address] [place] [phone] 08/28/2022 Appointment Laboratory Medicine Angélica Granger P.A.-C. [address] [place] [phone] documented as of this encounter Procedures Procedure Name Priority Date/Time Associated Diagnosis Comme nts GI PATHOGEN PANEL, Routine 10/02/2015 12:47 PM Re sults for this PCR, F CDT procedure are i n the results section. documented in this encounter Results (ABNORMAL) GI Pathogen Panel, PCR, F (10/02/2015 12:47 PM CDT) Component Value Ref Test Analysis Performed At [facility] Range Method Time Signature HXC Difficile [...]
--- OUTSIDE RECORDS SUMMARY | 2022-05-17 19:06 | XMS_ITS | Encounter Summary ---
:1955 Author Organization [facility] Address [address] [place] [address] Care Team Providers Name Role Phone Unavailable Primary Care Provider Unavailable Encounter Details Date Type Department Care Team Description 10/16/2015 Hospital Encounter [facility]X [facility] Dari Wan M.D. 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 [address] [place] [phone] 05/23/2022 Clinical Admitting/Central Communication Scheduling 05/27/2022 Comprehensive Visit Orthopedic Surgery Markus Sams M.D., Ph.D. [address] [place] [address] 05/29/2022 Office Visit Otorhinolaryngology Dex Matta APRN, CDemetriusNFabrice., M.S.N. [address] [place] [phone] 05/29/2022 Office Visit Otorhinolaryngology Nadeem Maradiaga, Edmundo, M.S. [address] [place] [phone] 05/31/2022 Appointment Radiology Guilherme Matt MPAS, P.A.-C., M.S. [address] [place] [phone] 06/05/2022 Appointment Laboratory Medicine Angélica Granger P.A.-C. [address] [place] [phone] 06/19/2022 Appointment Laboratory Medicine Angélica Granger P.A.-C. [address] [place] [phone] 07/03/2022 Appointment Laboratory Medicine Angélica Granger P.A.-C. [address] [place] [phone] 07/17/2022 Appointment Laboratory Medicine Angélica Granger P.A.-C. [address] [place] [phone] 07/31/2022 Appointment Laboratory Medicine Angélica Granger P.A.-C. [address] [place] [phone] 08/14/2022 Appointment Laboratory Medicine Angélica Granger P.A.-C. [address] [place] [phone] 08/28/2022 Appointment Laboratory Medicine Angélica Granger P.A.-C. [address] [place] [phone] documented as of this encounter Procedures Procedure [...] Erythrocytes 4.12 (L) 4.32 - POWERCHART 5.72 [id number] Hemoglobin 13.3 (L) 13.5 - POWERCHART 17.5 [...] M.D. LAB BLOOD ADD-ON Performing Organization Address City/[facility]/ZIP Code Phon e Number POWERCHART Alkaline Phosphatase (10/16/2015 8:49 AM CDT) P athologist Signature Alkaline 73 45 - 115 POWERCHART Phosphatase, S UNITL Specimen (Source) Anatomical Collection Method Collection Time Re ceived Time Location / / Volume Laterality Blood 10/16/2015 8:49 AM CDT Tiffanie Wan M.D. LAB BLOOD ADD-ON Performing Organization Address City/[facility]/ZIP Code Phon e Number POWERCHART (ABNORMAL) Creatinine with eGFR (10/16/2015 8:49 AM CDT) P athologist Signature Creatinine 1.8 (H) 0.8 - 1.3 POWERCHART MGDL HXeGFR (MDRD) 39 (L) >=60 POWERCHART [id number] eGFR 47 (L) >=60 POWERCHART Black/ [id number] Liberian Specimen (Source) Anatomical Collection Method Collection Time Re ceived Time Location / / Volume Laterality Blood 10/16/2015 8:49 AM CDT Tiffanie Wan M.D. LAB BLOOD ADD-ON Performing Organization Address City/State/ZIP Code Phon e Number POWERCHART Potassium (10/16/2015 8:49 AM CDT) P athologist Signature Potassium, S 4.1 3.6 - 5.2 POWERCHART MMOLL Specimen (Source) Anatomical Collection Method Collection Time Re ceived Time Location / / Volume Laterality Blood 10/16/2015 8:49 AM CDT Tiffanie Wan M.D. LAB BLOOD ADD-ON Performing Organization Address City/State/ZIP Code Phon e Number POWERCHART Sodium (10/16/2015 8:49 [...]
--- OUTSIDE RECORDS SUMMARY | 2022-05-17 19:06 | XMS_ITS | Encounter Summary ---
:1955 Author Organization [facility] Address [address] [place] [address] Care Team Providers Name Role Phone Unavailable Primary Care Provider Unavailable Encounter Details Date Type Department Care Team Description 08/24/2015 Hospital Encounter [facility]X [facility] Dari Wan M.D. 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 [address] [place] [phone] 05/23/2022 Clinical Admitting/Central Communication Scheduling 05/27/2022 Comprehensive Visit Orthopedic Surgery Markus Sams M.D., Ph.D. [address] [place] [phone] 05/29/2022 Office Visit Otorhinolaryngology Dex Matta APRN, CDemetriusNFabrice., M.S.N. [address] [place] [phone] 05/29/2022 Office Visit Otorhinolaryngology Nadeem Maradiaga, Edmundo, M.S. [address] [place] [phone] 05/31/2022 Appointment Radiology Guilherme Matt MPAS, P.A.-C., M.S. [address] [place] [phone] 06/05/2022 Appointment Laboratory Medicine Angélica Granger P.A.-C. [address] [place] [phone] 06/19/2022 Appointment Laboratory Medicine Angélica Granger P.A.-C. [address] [place] [phone] 07/03/2022 Appointment Laboratory Medicine Angélica Granger P.A.-C. [address] [place] [phone] 07/17/2022 Appointment Laboratory Medicine Angélica Granger P.A.-C. [address] [place] [phone] 07/31/2022 Appointment Laboratory Medicine Angélica Granger P.A.-C. [address] [place] [phone] 08/14/2022 Appointment Laboratory Medicine Angélica Granger P.A.-C. [address] [place] [phone] 08/28/2022 Appointment Laboratory Medicine Angélica Granger P.A.-C. [address] [place] [phone] documented as of this encounter Procedures Procedure Name Priority Date/Time Associated Comments Diagnosis ALANINE AMINOTRANSFERASE Routine 08/21/2015 9:43 Results for this (ALT), S/P AM STRAIGHT EDGER procedure are i n the results section. CREATININE WITH EGFR, Routine 08/21/2015 9:43 Res ults for this S/P AM STRAIGHT EDGER procedure are i n the results section. documented in this encounter Results ALT (Alanine Aminotransferase) (08/21/2015 9:43 AM STRAIGHT EDGER) athologist Signature Alanine 17 7 - 55 POWERCHART Amniotransferas UNITL e, LD Specimen (Source) Anatomical Collection Method Collection Time Re ceived Time Location / / Volume Laterality Blood 08/21/2015 9:43 AM STRAIGHT EDGER Tiffanie Wan M.D. LAB BLOOD ADD-ON Performing Organization Address City/State/ZIP Code Phon e Number POWERCHART (ABNORMAL) Creatinine with eGFR (08/21/2015 9:43 AM STRAIGHT EDGER) athologist Signature Creatinine 2.4 (H) 0.8 - 1.3 POWERCHART MGDL HXeGFR (MDRD) 28 (L) >=60 POWERCHART [id number] eGFR 34 (L) >=60 POWERCHART Black/ [id number] Uzbek Specimen (Source) Anatomical Collection Method Collection Time Re ceived Time Location / / Volume Laterality Blood 08/21/2015 9:43 AM STRAIGHT EDGER Tiffanie Wan M.D. LAB BLOOD ADD-ON Performing Organization Address City/State/ZIP Code Phon e Number POWERCHART documented in this encounter Visit Diagnoses Not on filedocumented in this encounter Additional Health Concerns Assessment Noted Time PHQ-9 Depression Total Score: 3 05/30/2015 10:21 AM CS T documented as of this encounter
--- OUTSIDE RECORDS SUMMARY | 2022-05-17 19:06 | XMS_ITS | Encounter Summary ---
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 documented as of this encounter Last Filed Vital Signs Vital Sign Reading Time Taken Comments Blood Pressure 128/75 07/25/2015 10:35 AM UNDERGROUND DRILL OPERATOR Pulse 50 07/25/2015 10:35 AM UNDERGROUND DRILL OPERATOR Temperature - - Respiratory Rate - - Oxygen Saturation - - Inhaled Oxygen Concentration - - Weight - - Height 178 cm (5' 10.08) 07/25/2015 10:35 AM UNDERGROUND DRILL OPERATOR Body Mass Index - - documented [...] AM CST *General Message From: KRYSTLE VARGAS OLAP DEVELOPER To: MIRTHA SANTOYO PA-C; Sent: 07/25/2015 10:44:41 UNDERGROUND DRILL OPERATOR Subject: *General Message Patient was in for B/P check today. B/P 128/75 Pulse 50 Source: [facility] POWERCHART Document Id: [id number] Electronically signed by Conversion, [facility] Die Maker Electronic [id number] at 11/16/2016 10:21 AM CDT Miscellaneous - Krystle Vargas, C.M.A. - 07/25/2015 10:35 AM CST Ambulatory Vitals Height Weight Ambulatory Vitals Height Weight Entered On: 07/25/2015 10:39 UNDERGROUND DRILL OPERATOR Performed On: 07/25/2015 10:35 UNDERGROUND DRILL OPERATOR by KRYSTLE VARGAS [facility] Vitals/Ht/Wt Peripheral Pulse Rate : 50 /min (LOW) Systolic Blood Pressure : 128 mmHg Diastolic Blood Pressure : 75 mmHg NIBP Mean : 93 mmHg BP Location : Left upper extremity Blood Pressure Cuff Size : Regular Height : 178 cm(Converted to: 5 ft 10 inch(es), 70 inch(es)) KRYSTLE VARGAS [facility] - 07/25/2015 10:35 UNDERGROUND DRILL OPERATOR Source: [facility] FatwireCHART Document Id: [id number] UNDERGROUND DRILL OPERATOR!9 RGROUND DRILL OPERATOR documented in this encounter Plan of Treatment Upcoming Encounters Date Type Specialty Care Team Description 05/22/2022 Appointment Laboratory Medicine Angélica Granger P.A.-C. [address] [place] [phone] 05/23/2022 Clinical Admitting/Central Communication Scheduling 05/27/2022 Comprehensive Visit Orthopedic Surgery Markus Sams M.D., Ph.D. [address] [place] [phone] 05/29/2022 Office Visit Otorhinolaryngology Dex Matta APRN, C.N.P., M.S.N. [address] [place] [phone] 05/29/2022 Office Visit Otorhinolaryngology Nadeem Maradiaga P.A.-C., M.S. [address] [place] [phone] 05/31/2022 Appointment Radiology Guilherme Matt MPAS, P.A.-C., M.S. [address] [place] [phone] 06/05/2022 Appointment Laboratory Medicine Angélica Granger P.A.-C. [address] [place] [phone] 06/19/2022 Appointment Laboratory Medicine Angélica Granger P.A.-C. [address] [place] [phone] 07/03/2022 Appointment Laboratory Medicine Angélica Granger P.A.-C. [address] [place] [phone] 07/17/2022 Appointment Laboratory Medicine Angélica Granger P.A.-C. [address] [place] [phone] 07/31/2022 Appointment Laboratory Medicine Angélica Granger P.A.-C. [address] [place] [phone] 08/14/2022 Appointment Laboratory Medicine Angélica Granger P.A.-C. [address] [place] [phone] 08/28/2022 Appointment Laboratory Medicine Angélica Granger P.A.-C. [address] [place] [phone] documented as of this encounter Visit Diagnoses Not on filedocumented in this encounter Additional Health Concerns Assessment Noted Time PHQ-9 Depression Total Score: 3 05/30/2015 10:21 AM CS T documented as of this encounter
--- OUTSIDE RECORDS SUMMARY | 2022-05-17 19:06 | XMS_ITS | Encounter Summary ---
:1955 Author Organization [facility] Address [address] [place] [address] Care Team Providers Name Role Phone Unavailable Primary Care Provider Unavailable Encounter Details Date Type Department Care Team Description 05/22/2015 Hospital Encounter HX [facility] FAMILYPRA Kg Santoyo P.A.-C. 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 documented as of this encounter Last Filed Vital Signs Vital Sign Reading Time Taken Comments Blood Pressure 132/82 05/22/2015 12:07 PM NUCLEAR PLANT TECHNICAL ADVISOR Pulse 52 05/22/2015 12:00 PM NUCLEAR PLANT TECHNICAL ADVISOR Temperature - - Respiratory Rate 16 05/22/2015 12:00 PM NUCLEAR PLANT TECHNICAL ADVISOR Oxygen Saturation - - Inhaled Oxygen Concentration - - Weight 88 kg (194 lb 0.1 oz) 05/22/2015 12:00 PM NUCLEAR PLANT TECHNICAL ADVISOR Height 178 cm (5' 10.08) 05/22/2015 12:07 PM NUCLEAR PLANT TECHNICAL ADVISOR Body Mass Index 27.77 05/22/2015 12:00 PM NUCLEAR PLANT TECHNICAL ADVISOR documented in this encounter Medications at Time [...] Santoyo P.A.-C. - 05/22/2015 11:29 AM CST [id number] CHIEF COMPLAINT/REASON FOR VISIT Establish care. HISTORY [...] follows with all these problems down in [place]. He has his physical coming up in a couple weeks. In general, he has no concerns today. He just wanted to establish care at a [place] facility close to home in case he [...] been titrating down. He follows withPsychiatry in [place] for this. 2. Renal insufficiency. This is a side effect of his anti-rejection medications apparently and he iscontinuing to follow this in [place]. 3. Liver transplant. He says this has been stable. I did review his medical records from [place] in detail today. He has a follow up down there within the next month. 4. Health maintenance. He is due for PSA. He will be due for colonoscopy in a few years. He says that he has been getting all this in [place] and plans to continue with this. I will not make any further adjustments at this time. If there are any questions or any problems, he will let us know. Otherwise, follow up as scheduled. Mirtha Santoyo PA-C/juliann Electronically Signed By: MIRTHA SANTOYO PA-C On: 05/24/2015 09:05 AM Source: [facility]OL[facility]YNONRADSYS Document Id: [id number] EAR PLANT TECHNICAL ADVISOR documented in this encounter Miscellaneous Notes Telephone Encounter - Conversion, Historical Provider Ser - 10/03/2015 11:03 AM CDT *Phone Message/adam Document Contains Addenda Addendum by BELA PADRON LPN on October 03, 2015 11:49:[address] Waters culture was positive and forward results onto Roshan Grace at [phone] for them to treat. Patient was notified [...] 10/02/15 are ready. please call Cell at [phone]. Pt concerned about how this was handled yesterday. [facility] in [place] is waiting for these results. Message: Advice/Action: [...] back cell phone number ( ) Source: [facility] POWERCHART Document Id: [id number] Miscellaneous - Mirtha Santoyo P.A.-C. - 05/22/2015 1:07 PM CST Ambulatory Patient Summary [address] [id number] Visit Information Name: BRUCE CUELLO [facility] Number: [id number] Current Date: 05/22/2015 13:07:15 Physicians Attending Provider: MIRTHA SANTOYO PA-C Primary Care Provider: MIRTHA SANTOYO PA-C BRUCE CUELOL has been given the following list of [...] hour before dental procedure New Routed to [address] [id number] aspirin (aspirin 81 mg oral tablet) 1 [...] if you dont have one. Go to [email or web address] and click on Create Your Account. Then, follow the directions to complete the online form. Youll be asked for your [facility] number which you can find at the top of this document. Your Goals/Additional instructions: Source: [facility] POWERCHART Document Id: [id number] EAR PLANT TECHNICAL ADVISOR Miscellaneous - Mirtha Santoyo P.A.-C. - 05/22/2015 1:07 PM CST Ambulatory Discharge Medication List [address] [id number] Visit Information Name: BRUCE CUELLO [facility] Number: [id number] Visit Date: 05/22/2015 13:07:13 Attending [...] hour before dental procedure New Routed to [address] [id number] aspirin (aspirin 81 mg oral tablet) 1 [...] PA-C Signed On:22-MAY-2015 13:07:04 Additional Information: Source: [facility] POWERCHART Document Id: [id number] EAR PLANT TECHNICAL ADVISOR Miscellaneous - Eugenia Walter L.P.N. - 05/22/2015 12:07 PM CST Ambulatory Vitals Height Weight Ambulatory Vitals Height Weight Entered On: 05/22/2015 12:07 NUCLEAR PLANT TECHNICAL ADVISOR Performed On: 05/22/2015 12:07 NUCLEAR PLANT TECHNICAL ADVISOR by EUGENIA WALTER LPN Vitals/Ht/Wt Systolic Blood Pressure : 132 mmHg Diastolic Blood Pressure : 82 mmHg NIBP Mean : 99 mmHg BP Location : Right upper extremity Blood Pressure Cuff Size : Large Height : 178 cm(Converted to: 5 ft 10 inch(es), 70 inch(es)) EUGENIA WALTER LPN - 05/22/2015 12:07 NUCLEAR PLANT TECHNICAL ADVISOR Source: [facility] Fashion Playtes Document Id: [id number] NUCLEAR PLANT TECHNICAL ADVISOR!8 EAR PLANT TECHNICAL ADVISOR Miscellaneous - Eugenia Walter L.P.N. - 05/22/2015 12:05 PM CST Health Assessment Health Assessment Entered On: 05/22/2015 12:06 NUCLEAR PLANT TECHNICAL ADVISOR Performed On: 05/22/2015 12:05 NUCLEAR PLANT TECHNICAL ADVISOR by EUGENIA WALTER LPN Health Assessment Complete Health Assessment Complete or Modified : Annual Health Assessment Annual Health Assessment Completed : Yes EUGENIA WALTER LPN - 05/22/2015 12:05 NUCLEAR PLANT TECHNICAL ADVISOR Nutrition Nutrition Risk Factors by History Adult : None EUGENIA WALTER LPN - 05/22/2015 12:05 NUCLEAR PLANT TECHNICAL ADVISOR Functional Current Daily Living Assistance : None EUGENIA WALTER LPN - 05/22/2015 12:05 NUCLEAR PLANT TECHNICAL ADVISOR Dependent Habits Exposure to Tobacco Smoke : Care provider denies smoking in home, Other: no smoke Smoking Status : Never smoker Tobacco 2A : No Alcohol Use : EUGENIA Castro LPN - 05/22/2015 12:05 NUCLEAR PLANT TECHNICAL ADVISOR Psychosocial Domestic Abuse Concerns : None Behavioral Health Screen/Safety Assmt : No Mormonism Preference : Restorationism EUGENIA WALTER LPN - 05/22/2015 12:05 NUCLEAR PLANT TECHNICAL ADVISOR Advance Directive Advanced Directives : No Advance Directive Additional Information : EUGENIA Castro LPN - 05/22/2015 12:05 NUCLEAR PLANT TECHNICAL ADVISOR Educ Needs Learning Style Preference Adult Grid Patient : Demonstration Family : EUGENIA Palencia LPN - 05/22/2015 12:05 NUCLEAR PLANT TECHNICAL ADVISOR Source: [facility]ALKroll Bond Rating Agency Document Id: [id number] NUCLEAR PLANT TECHNICAL ADVISOR!24 EAR PLANT TECHNICAL ADVISOR Miscellaneous - Eugenia Walter, L.P.N. - 05/22/2015 12:00 PM CST Adult Deck Supervisor Intake/History Adult Deck Supervisor Intake/History Entered On: 05/22/2015 12:04 NUCLEAR PLANT TECHNICAL ADVISOR Performed On: 05/22/2015 12:00 NUCLEAR PLANT TECHNICAL ADVISOR by EUGENIA WALTER LPN Intake Chief Complaint : meet and [...] Body Mass Index : 27.77 kg/m2 EUGENIA WALETR LPN - 05/22/2015 12:00 NUCLEAR PLANT TECHNICAL ADVISOR General Info Information Given By : Patient Languages : Frisian Is Patient Female and 13-50 no hysterectomy : EUGENIA Castro LPN - 05/22/2015 12:00 NUCLEAR PLANT TECHNICAL ADVISOR Subjective Pain Symptoms : EUGENIA Castro ROADS SUPERINTENDENT - 05/22/2015 12:00 NUCLEAR PLANT TECHNICAL ADVISOR Dependent Habits Exposure to Tobacco Smoke : Care provider denies smoking in home Smoking Status : Never smoker Tobacco 2A : EUGENIA Castro ROADS SUPERINTENDENT - 05/22/2015 12:00 NUCLEAR PLANT TECHNICAL ADVISOR Source: [facility] POWERCHART Document Id: [id number] NUCLEAR PLANT TECHNICAL ADVISOR!27 EAR PLANT TECHNICAL ADVISOR documented in this encounter Plan of Treatment Upcoming Encounters Date Type Specialty Care Team Description 05/22/2022 Appointment Laboratory Medicine Angélica Granger P.A.-C. [address] [place] [phone] 05/23/2022 Clinical Admitting/Central Communication Scheduling 05/27/2022 Comprehensive Visit Orthopedic Surgery Markus Sams M.D., Ph.D. [address] [place] [phone] 05/29/2022 Office Visit Otorhinolaryngology Dex Matta APRN, C.N.P., M.S.N. [address] [place] [phone] 05/29/2022 Office Visit Otorhinolaryngology Nadeem Maradiaga, P.Murtaza.-C., M.S. [address] [place] [phone] 05/31/2022 Appointment Radiology Guilherme Matt MPAS, P.Murtaza.Marie., M.S. [address] [place] [phone] 06/05/2022 Appointment Laboratory Medicine Angélica Granger P.A.-C. [address] [place] [phone] 06/19/2022 Appointment Laboratory Medicine Angélica Granger P.A.-C. [address] [place] [phone] 07/03/2022 Appointment Laboratory Medicine Angélica Granger P.A.-C. [address] [place] [phone] 07/17/2022 Appointment Laboratory Medicine Angélica Granger P.A.-C. [address] [place] [phone] 07/31/2022 Appointment Laboratory Medicine Angélica Granger P.A.-C. [address] [place] [phone] 08/14/2022 Appointment Laboratory Medicine Angélica Granger P.A.-C. [address] [place] [phone] 08/28/2022 Appointment Laboratory Medicine Angélica Granger P.A.-C. [address] [place] [phone] documented as of this encounter Visit Diagnoses Not on filedocumented in this encounter Additional Health Concerns Assessment Noted Time PHQ-9 Depression Total Score: 4 01/04/2015 1:36 PM CDT documented as of this encounter
--- OUTSIDE RECORDS SUMMARY | 2022-05-17 19:06 | XMS_ITS | Encounter Summary ---
:1955 Author Organization [facility] Address [address] [place] [address] Care Team Providers Name Role Phone Unavailable Primary Care Provider Unavailable Encounter Details Date Type Department Care Team Description 08/21/2015 Hospital Encounter HX [facility] Dari Wan M.D. 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 [address] [place] [phone] 05/23/2022 Clinical Admitting/Central Communication Scheduling 05/27/2022 Comprehensive Visit Orthopedic Surgery Markus Sams M.D., Ph.D. [address] [place] [phone] 05/29/2022 Office Visit Otorhinolaryngology Dex Matta APRN, CDemetriusNFabrice., M.S.N. [address] [place] [phone] 05/29/2022 Office Visit Otorhinolaryngology Nadeem Maradiaga, Edmundo, M.S. [address] [place] [phone] 05/31/2022 Appointment Radiology Guilherme Matt MPAS, P.A.-C., M.S. [address] [place] [phone] 06/05/2022 Appointment Laboratory Medicine Angélica Granger P.A.-C. [address] [place] [phone] 06/19/2022 Appointment Laboratory Medicine Angélica Granger P.A.-C. [address] [place] [phone] 07/03/2022 Appointment Laboratory Medicine Angélica Granger P.A.-C. [address] [place] [phone] 07/17/2022 Appointment Laboratory Medicine Angélica Granger P.A.-C. [address] [place] [phone] 07/31/2022 Appointment Laboratory Medicine Angélica Granger P.A.-C. [address] [place] [phone] 08/14/2022 Appointment Laboratory Medicine Angélica Granger P.A.-C. [address] [place] [phone] 08/28/2022 Appointment Laboratory Medicine Angélica Granger P.A.-C. [address] [place] [phone] documented as of this encounter Procedures Procedure Name Priority Date/Time Associated Comments Diagnosis GLUCOSE, P Routine 08/21/2015 9:43 Results for this AM BEVELING MACHINE OPERATOR procedure are i n the results section. AUTOMATED DIFFERENTIAL, Routine 08/21/2015 9:43 R esults for this B AM BEVELING MACHINE OPERATOR procedure are i n the results section. CBC WITH DIFFERENTIAL, B Routine 08/21/2015 9:43 Results for this AM BEVELING MACHINE OPERATOR procedure are i n the results section. ASPARTATE Routine 08/21/2015 9:43 Results for this AMINOTRANSFERASE (AST), AM BEVELING MACHINE OPERATOR proc edure are in S/P the results section. SODIUM, S/P Routine 08/21/2015 9:43 Results for this AM BEVELING MACHINE OPERATOR procedure are i n the results section. POTASSIUM, S/P Routine 08/21/2015 9:43 Results fo r this AM BEVELING MACHINE OPERATOR procedure are i n the results section. ALKALINE PHOSPHATASE, Routine 08/21/2015 9:43 Res ults for this S/P AM BEVELING MACHINE OPERATOR procedure are i n the results section. BILIRUBIN, TOT, S/P Routine 08/21/2015 9:43 Resul ts for this AM BEVELING MACHINE OPERATOR procedure are i n the results section. documented in this encounter Results Automated Differential (08/21/2015 9:43 AM BEVELING MACHINE OPERATOR) P athologist Signature Absolute 2.13 1.70 - POWERCHART Neutrophils 7.00 109L Lymphocytes 1.76 0.90 - POWERCHART 2.90 X109L Monocytes 0.59 0.30 - POWERCHART 0.90 X109L Eosinophils 0.23 0.05 - POWERCHART 0.50 X109L Absolute 0.01 0.00 - POWERCHART Basophil 0.30 X109L Specimen Anatomical Collection Method Collection Time Receive d Time (Source) Location / / Volume Laterality Blood 08/21/2015 9:43 AM 6 9:43 BEVELING MACHINE OPERATOR AM BEVELING MACHINE OPERATOR Tiffanie Wan M.D. LAB BLOOD ADD-ON Performing Organization Address City/State/ZIP Code Phon e Number POWERCHART (ABNORMAL) CBC with Differential (08/21/2015 9:43 AM BEVELING MACHINE OPERATOR) Analysis Performed At Patho logist Time Signature Leukocytes 4.7 3.5 - 10.5 POWERCHART X109L Erythrocytes 4.06 (L) 4.32 - POWERCHART 5.72 R3896B Hemoglobin 12.9 (L) 13.5 - POWERCHART 17.5 GDL Hematocrit 38.8 38.8 - POWERCHART 50.0 MCV 95.6 (H) 81.0 - POWERCHART 95.0 FL Platelet Count 188 150 - 450 POWERCHART X109L HX RDW 13.1 11.8 - POWERCHART 15.6 Specimen (Source) Anatomical Collection Method Collection Time Re ceived Time Location / / Volume Laterality Blood 08/21/2015 9:43 AM BEVELING MACHINE OPERATOR Tiffanie Wan M.D. LAB BLOOD ADD-ON Performing Organization Address City/State/ZIP Code Phon e Number POWERCHART Sodium (08/21/2015 9:43 AM BEVELING MACHINE OPERATOR) P athologist Signature Sodium, S 142 135 - 145 POWERCHART MMOLL Specimen (Source) Anatomical Collection Method Collection Time Re ceived Time Location / / Volume Laterality Blood 08/21/2015 9:43 AM BEVELING MACHINE OPERATOR Tiffanie Wan M.D. LAB BLOOD ADD-ON Performing Organization Address City/State/ZIP Code Phon e Number POWERCHART Potassium (08/21/2015 9:43 AM BEVELING MACHINE OPERATOR) P athologist Signature Potassium, S 4.1 3.6 - 5.2 POWERCHART MMOLL Specimen (Source) Anatomical Collection Method Collection Time Re ceived Time Location / / Volume Laterality Blood 08/21/2015 9:43 AM BEVELING MACHINE OPERATOR Tiffanie Wan M.D. LAB BLOOD ADD-ON Performing Organization Address City/State/ZIP Code Phon e Number POWERCHART Glucose (08/21/2015 9:43 AM BEVELING MACHINE OPERATOR) P athologist Signature Glucose 109 70 - 139 POWERCHART MGDL Specimen (Source) Anatomical Collection Method Collection Time Re ceived Time Location / / Volume Laterality Blood 08/21/2015 9:43 AM BEVELING MACHINE OPERATOR Tiffanie Wan M.D. LAB BLOOD ADD-ON Performing Organization Address [facility]/ZIP Code Phon e Number POWERCHART Bilirubin, Total (08/21/2015 9:43 AM BEVELING MACHINE OPERATOR) P athologist Signature Bilirubin, 0.6 0.1 - 1.0 POWERCHART Total, S MGDL Specimen (Source) Anatomical Collection Method Collection Time Re ceived Time Location / / Volume Laterality Blood 08/21/2015 9:43 AM BEVELING MACHINE OPERATOR Tiffanie Wan M.D. LAB BLOOD ADD-ON Performing Organization Address [facility] Phon e Number POWERCHART AST (Aspartate Aminotransferase) (08/21/2015 9:43 AM BEVELING MACHINE OPERATOR) Patholo gist Method Time Signature Aspartate 18 8 - 48 POWERCHART Aminotransferase UNITL (AST), S Specimen (Source) Anatomical Collection Method Collection Time Re ceived Time Location / / Volume Laterality Blood 08/21/2015 9:43 AM BEVELING MACHINE OPERATOR Tiffanie Wan M.D. LAB BLOOD ADD-ON Performing Organization Address [facility] Code Phon e Number POWERCHART Alkaline Phosphatase (08/21/2015 9:43 AM BEVELING MACHINE OPERATOR) P athologist Signature Alkaline 69 45 - 115 POWERCHART Phosphatase, S UNITL Specimen (Source) Anatomical Collection Method Collection Time Re ceived Time Location / / Volume Laterality Blood 08/21/2015 9:43 AM BEVELING MACHINE OPERATOR Tiffanie Wan M.D. LAB BLOOD ADD-ON Performing Organization Address [facility] Code Phon e Number POWERCHART documented in this encounter Visit Diagnoses Not on filedocumented in this encounter Additional Health Concerns Assessment Noted Time PHQ-9 Depression Total Score: 3 05/30/2015 10:21 AM CS T documented as of this encounter
--- OUTSIDE RECORDS SUMMARY | 2022-05-17 19:06 | XMS_ITS | Encounter Summary ---
:1955 Author Organization [facility] Address [address] [place] [address] Care Team Providers Name Role Phone Unavailable Primary Care Provider Unavailable Encounter Details Date Type Department Care Team Description 09/20/2015 Hospital Encounter HX [facility] FAMILYPRA Kg Santoyo P.A.-C. 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 - 09/20/2015 2:25 PM CDT [id number] CHIEF COMPLAINT/REASON FOR VISIT Sinus congestion. HISTORY [...] SANTOYO PA-C On: 09/20/2015 04:36 PM Source: [facility] MHSDOLBEYNONRADSYS Document Id: [id number] documented in this encounter Nursing Notes Eugenia Hong L.PSteve - 10/02/2015 9:36 AM CDT c diff notified Bruce of the supplies at front desk specialist needed for lab Electronically Signed By: EUGENIA HONG LPN On: 10/02/2015 09:38 AM Source: [facility] POWERCHART Document Id: [id number] documented in this encounter Miscellaneous Notes Telephone [...] Bruce needs a cdiff lab done per [place] following his liver transplant Message: Advice/Action: Source [...] back cell phone number ( ) Source: [facility] Albumatic Document Id: [id number] Miscellaneous - Mirtha Santoyo P.A.-C. - 09/20/2015 3:29 PM CDT Ambulatory Discharge Medication List [address] [id number] Visit Information Name: BRUCE SINGH [facility] Number: [id number] Visit Date: 09/20/2015 15:29:51 Attending [...] day x 10 day(s) New Routed to [address] [id number] aspirin (aspirin 81 mg oral tablet) 1 [...] PA-C Signed On:20-SEP-2015 15:29:42 Additional Information: Source: [facility] POWERCHART Document Id: [id number] Miscellaneous - Mirtha Santoyo P.A.-C. - 09/20/2015 3:29 PM CDT Ambulatory Patient Summary [id number] [place], [place] [phone] Visit Information Name: BRUCE SINGH [facility] Number: [id number] Current Date: 09/20/2015 15:29:52 Physicians Attending Provider: [...] day x 10 day(s) New Routed to [address] [id number] aspirin (aspirin 81 mg oral tablet) 1 [...] if you dont have one. Go to [email or web address] and click on Create Your Account. Then, follow the directions to complete the online form. Youll be asked for your [facility] number which you can find at the top of this document. Your Goals/Additional instructions: Source: [facility] POWERCHART Document Id: [id number] Miscellaneous - Hai Ybarra, C.M.A. 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 [employer] Tm1 Developer Intake/History Adult [employer] Tm1 Developer Intake/History Entered On: 09/20/2015 14:34 CDT Performed On: 09/20/2015 14:31 CDT by HAI YBARRA [employer] Intake Chief Complaint : Possible sinus infection [...] Mass Index : 27.77 kg/m2 HAI YBARRA [facility] - 09/20/2015 14:31 CDT General Info Information Given By : Patient Preferred Communication Mode : Verbal, Written Languages : Malawian Is Patient Female and 13-50 no hysterectomy : No HAI YBARRA [facility] - 09/20/2015 14:31 CDT Subjective Pain Symptoms : No HAI YBARRA [facility] - 09/20/2015 14:31 CDT Dependent Habits Exposure to Tobacco Smoke : Care provider denies smoking in home, Other: no smoke Smoking Status : Never smoker Tobacco 2A : No Tobacco Use/Currently Using : No Tobacco Use/Last 30 Days : No Tobacco Use/Last 12 months : HAI Castellon [facility] - 09/20/2015 14:31 CDT Source: [facility] [employer] Document Id: [id number]!33 documented in this encounter Plan of Treatment Upcoming Encounters Date Type Specialty Care Team Description 05/22/2022 Appointment Laboratory Medicine Angélica Granger P.A.-C. [address] [place] [phone] 05/23/2022 Clinical Admitting/Central Communication Scheduling 05/27/2022 Comprehensive Visit Orthopedic Surgery Markus Sams M.D., Ph.D. [address] [place] [phone] 05/29/2022 Office Visit Otorhinolaryngology Dex Matta APRN, C.N.P., M.S.N. [address] [place] [phone] 05/29/2022 Office Visit Otorhinolaryngology Nadeem Maradiaga P.A.-C., M.S. [address] [place] [phone] 05/31/2022 Appointment Radiology Guilherme Matt MPAS, P.A.-C., M.S. [address] [place] [phone] 06/05/2022 Appointment Laboratory Medicine Angélica Granger P.A.-C. [address] [place] [phone] 06/19/2022 Appointment Laboratory Medicine Angélica Granger P.A.-C. [address] [place] [phone] 07/03/2022 Appointment Laboratory Medicine Angélica Granger P.A.-C. [address] [place] [phone] 07/17/2022 Appointment Laboratory Medicine Angélica Granger P.A.-C. [address] [place] [phone] 07/31/2022 Appointment Laboratory Medicine Angélica Granger P.A.-C. [address] [place] [phone] 08/14/2022 Appointment Laboratory Medicine Angélica Granger P.A.-C. [address] [place] [phone] 08/28/2022 Appointment Laboratory Medicine Angélica Granger P.A.-C. [address] [place] [phone] documented as of this encounter Visit Diagnoses Not on filedocumented in this encounter Additional Health Concerns Assessment Noted Time PHQ-9 Depression Total Score: 3 05/30/2015 10:21 AM CS T documented as of this encounter
--- OUTSIDE RECORDS SUMMARY | 2022-05-17 19:06 | XMS_ITS | Encounter Summary ---
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 [address] [place] [phone] 05/23/2022 Clinical Admitting/Central Communication Scheduling 05/27/2022 Comprehensive Visit Orthopedic Surgery Markus Sams M.D., Ph.D. [address] [place] [phone] 05/29/2022 Office Visit Otorhinolaryngology Dex Matta APRN, C.N.P., M.S.N. [address] [place] [phone] 05/29/2022 Office Visit Otorhinolaryngology Nadeem Maradiaga, PEdgar.Marie., M.S. [address] [place] [phone] 05/31/2022 Appointment Radiology Guilherme Matt MPAS, PMaryanne., M.S. [address] [place] [phone] 06/05/2022 Appointment Laboratory Medicine Angélica Granger P.A.-C. [address] [place] [phone] 06/19/2022 Appointment Laboratory Medicine Angélica Granger P.A.-C. [address] [place] [phone] 07/03/2022 Appointment Laboratory Medicine Angélica Granger P.A.-C. [address] [place] [phone] 07/17/2022 Appointment Laboratory Medicine Angélica Granger P.A.-C. [address] [place] [phone] 07/31/2022 Appointment Laboratory Medicine Angélica Granger P.A.-C. [address] [place] [phone] 08/14/2022 Appointment Laboratory Medicine Angélica Granger P.A.-C. [address] [place] [phone] 08/28/2022 Appointment Laboratory Medicine Angélica Granger P.A.-C. [address] [place] [phone] documented as of this encounter Visit Diagnoses Not on filedocumented in this encounter Additional Health Concerns Infection Onset Date Last Indicated Resolved Time COVID19 Pending 12/13/2019 12/13/2019 12/14/2019 11:03 AM CDT COVID19 Pending 01/26/2020 01/27/2020 01/28/2020 12:12 AM CDT Assessment Noted Time PHQ-9 Depression Total Score: 3 05/30/2015 10:21 AM CS T documented as of this encounter Care Teams Cigar Bander Hand Relationship Specialty Start Date End Date Elsewhere, Pcp PCP - General Family Medicine 07/29/17 [facility] - Laboratory Medicine 04/12/[address] [phone] documented as of this encounter
--- OUTSIDE RECORDS SUMMARY | 2022-05-17 19:07 | XMS_ITS | Encounter Summary ---
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 [address] [place] [phone] 05/23/2022 Clinical Admitting/Central Communication Scheduling 05/27/2022 Comprehensive Visit Orthopedic Surgery Markus Sams M.D., Ph.D. [address] [place] [phone] 05/29/2022 Office Visit Otorhinolaryngology Dex Matta, RAMONA, C.N.P., M.S.N. [address] [place] [phone] 05/29/2022 Office Visit Otorhinolaryngology Nadeem Maradiaga, P.Murtaza.-C., M.S. [address] [place] [address] [phone] 05/31/2022 Appointment Radiology Guilherme Matt MPAS, P.Murtaza.Marie., M.S. [address] [place] [phone] 06/05/2022 Appointment Laboratory Medicine Angélica Granger P.A.-C. [address] [place] [address] [phone] 06/19/2022 Appointment Laboratory Medicine Angélica Granger P.A.-C. [address] [place] [phone] 07/03/2022 Appointment Laboratory Medicine Angélica Granger P.A.-C. [address] [place] [phone] 07/17/2022 Appointment Laboratory Medicine Angélica Granger P.A.-C. [address] [place] [phone] 07/31/2022 Appointment Laboratory Medicine Angélica Granger P.A.-C. [address] [place] [address] [phone] 08/14/2022 Appointment Laboratory Medicine Angélica Granger P.A.-C. [address] [place] [address] [phone] 08/28/2022 Appointment Laboratory Medicine Angélica Granger P.A.-C. [address] [place] [phone] documented as of this encounter Visit Diagnoses Not on filedocumented in this encounter Additional Health Concerns Assessment Noted Time PHQ-9 Depression Total Score: 4 08/11/2013 10:10 AM CS T documented as of this encounter
--- OUTSIDE RECORDS SUMMARY | 2022-05-17 19:07 | XMS_ITS | Encounter Summary ---
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 [address] [place] [phone] 05/23/2022 Clinical Admitting/Central Communication Scheduling 05/27/2022 Comprehensive Visit Orthopedic Surgery Markus Sams M.D., Ph.D. [address] [place] [address] [phone] 05/29/2022 Office Visit Otorhinolaryngology Dxe Matta APRN, C.N.P., M.S.N. [address] [place] [address] [phone] 05/29/2022 Office Visit Otorhinolaryngology Nadeem Maradiaga, P.A.-C., M.S. [address] [place] [phone] 05/31/2022 Appointment Radiology Guilherme Matt MPAS, P.Murtaza.Marie., M.S. [address] [place] [phone] 06/05/2022 Appointment Laboratory Medicine Angélica Granger P.A.-C. [address] [place] [address] [phone] 06/19/2022 Appointment Laboratory Medicine Angélica Granger P.A.-C. [address] [place] [phone] 07/03/2022 Appointment Laboratory Medicine Angélica Granger P.A.-C. [address] [place] [phone] 07/17/2022 Appointment Laboratory Medicine Angélica Granger P.A.-C. [address] [place] [address] [phone] 07/31/2022 Appointment Laboratory Medicine Angélica Granger P.A.-C. [address] [place] [phone] 08/14/2022 Appointment Laboratory Medicine Angélica Granger P.A.-C. [address] [place] [phone] 08/28/2022 Appointment Laboratory Medicine Angélica Granger P.A.-C. [address] [place] [phone] documented as of this encounter Visit Diagnoses Not on filedocumented in this encounter Additional Health Concerns Assessment Noted Time PHQ-9 Depression Total Score: 4 10/01/2013 8:05 AM CDT documented as of this encounter
--- OUTSIDE RECORDS SUMMARY | 2022-05-17 19:07 | XMS_ITS | Encounter Summary ---
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 [address] [place] [phone] 05/23/2022 Clinical Admitting/Central Communication Scheduling 05/27/2022 Comprehensive Visit Orthopedic Surgery Markus Sams M.D., Ph.D. [address] [place] [phone] 05/29/2022 Office Visit Otorhinolaryngology Dex Matta APRN, C.N.P., M.S.N. [address] [place] [address] [phone] 05/29/2022 Office Visit Otorhinolaryngology Nadeem Maradiaga, P.A.-C., M.S. [address] [place] [phone] 05/31/2022 Appointment Radiology Guilherme Matt MPAS, P.Murtaza.Marie., M.S. [address] [place] [phone] 06/05/2022 Appointment Laboratory Medicine Angélica Granger P.A.-C. [address] [place] [address] [phone] 06/19/2022 Appointment Laboratory Medicine Angélica Granger P.A.-C. [address] [place] [phone] 07/03/2022 Appointment Laboratory Medicine Angélica Granger P.A.-C. [address] [place] [phone] 07/17/2022 Appointment Laboratory Medicine Angélica Granger P.A.-C. [address] [place] [address] [phone] 07/31/2022 Appointment Laboratory Medicine Angélica Granger P.A.-C. [address] [place] [phone] 08/14/2022 Appointment Laboratory Medicine Angélica Granger P.A.-C. [address] [place] [phone] 08/28/2022 Appointment Laboratory Medicine Angélica Granger P.A.-C. [address] [place] [phone] documented as of this encounter Visit Diagnoses Not on filedocumented in this encounter Additional Health Concerns Assessment Noted Time PHQ-9 Depression Total Score: 4 10/01/2013 8:05 AM CDT documented as of this encounter
--- OUTSIDE RECORDS SUMMARY | 2022-05-17 19:07 | XMS_ITS | Encounter Summary ---
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 [address] [place] [phone] 05/23/2022 Clinical Admitting/Central Communication Scheduling 05/27/2022 Comprehensive Visit Orthopedic Surgery Markus Sams M.D., Ph.D. [address] [place] [phone] 05/29/2022 Office Visit Otorhinolaryngology Dex Matta APRN, C.N.P., M.S.N. [address] [place] [phone] 05/29/2022 Office Visit Otorhinolaryngology Nadeem Maradiaga, P.A.-C., M.S. [address] [place] [address] [phone] 05/31/2022 Appointment Radiology Guilherme Matt MPAS, P.A.-C., M.S. [address] [place] [phone] 06/05/2022 Appointment Laboratory Medicine Angélica Granger P.A.-C. [address] [place] [phone] 06/19/2022 Appointment Laboratory Medicine Angélica Granger P.A.-C. [address] [place] [phone] 07/03/2022 Appointment Laboratory Medicine Angélica Granger P.A.-C. [address] [place] [phone] 07/17/2022 Appointment Laboratory Medicine Angélica Granger P.A.-C. [address] [place] [phone] 07/31/2022 Appointment Laboratory Medicine Angélica Granger P.A.-C. [address] [place] [phone] 08/14/2022 Appointment Laboratory Medicine Angélica Granger P.A.-C. [address] [place] [phone] 08/28/2022 Appointment Laboratory Medicine Angélica Granger P.A.-C. 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
--- OUTSIDE RECORDS SUMMARY | 2022-05-17 19:07 | XMS_ITS | Encounter Summary ---
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 [address] [place] [address] [phone] 05/23/2022 Clinical Admitting/Central Communication Scheduling 05/27/2022 Comprehensive Visit Orthopedic Surgery Markus Sams M.D., Ph.D. [address] [place] [phone] 05/29/2022 Office Visit Otorhinolaryngology Dex Matta APRN, C.N.P., M.S.N. [address] [place] [phone] 05/29/2022 Office Visit Otorhinolaryngology Nadeem Maradiaga P.A.Marie., M.S. [address] [place] [address] [phone] 05/31/2022 Appointment Radiology Guilherme Matt MPAS, Edmundo, M.S. [address] [place] [phone] 06/05/2022 Appointment Laboratory Medicine Angélica Granger P.A.-C. [address] [place] [phone] 06/19/2022 Appointment Laboratory Medicine Angélica Granger P.A.-C. [address] [place] [phone] 07/03/2022 Appointment Laboratory Medicine Angélica Granger P.A.-C. [address] [place] [phone] 07/17/2022 Appointment Laboratory Medicine Angélica Granger P.A.-C. [address] [place] [address] [phone] 07/31/2022 Appointment Laboratory Medicine Angélica Granger P.A.-C. [address] [place] [address] [phone] 08/14/2022 Appointment Laboratory Medicine Angélica Granger P.A.-C. [address] [place] [phone] 08/28/2022 Appointment Laboratory Medicine Angélica Granger P.A.-C. [address] [place] [address] [phone] documented as of this encounter Visit Diagnoses Not on filedocumented in this encounter Additional Health Concerns Assessment Noted Time PHQ-9 Depression Total Score: 4 08/11/2013 10:10 AM CS T documented as of this encounter
--- OUTSIDE RECORDS SUMMARY | 2022-05-17 19:07 | XMS_ITS | Encounter Summary ---
:1955 Author Organization [facility] Address [address] [place] [address] Care Team Providers Name Role Phone Unavailable Primary Care Provider Unavailable Encounter Details Date Type Department Care Team Description 09/30/2013 Hospital Encounter HX NO MAPPING Roshan Grace M.S .N., R.N., C.C.T.C. 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 [address] [place] [address] [phone] 05/23/2022 Clinical Admitting/Central Communication Scheduling 05/27/2022 Comprehensive Visit Orthopedic Surgery Markus Sams M.D., Ph.D. [address] [place] [phone] 05/29/2022 Office Visit Otorhinolaryngology Dex Matta APRN, C.N.P., M.S.N. [address] [place] [phone] 05/29/2022 Office Visit Otorhinolaryngology Nadeem Maradiaga P.Murtaza.-Arley., M.S. [address] [place] [phone] 05/31/2022 Appointment Radiology Guilherme Matt MPAS, Edmundo, M.S. [address] [place] [address] [phone] 06/05/2022 Appointment Laboratory Medicine Angélica Granger P.A.-C. [address] [place] [phone] 06/19/2022 Appointment Laboratory Medicine Angélica Granger P.A.-C. [address] [place] [phone] 07/03/2022 Appointment Laboratory Medicine Angélica Granger P.A.-C. [address] [place] [phone] 07/17/2022 Appointment Laboratory Medicine Angélica Granger P.A.-C. [address] [place] [phone] 07/31/2022 Appointment Laboratory Medicine Angélica Granger P.A.-C. [address] [place] [phone] 08/14/2022 Appointment Laboratory Medicine Angélica Granger P.A.-C. [address] [place] [phone] 08/28/2022 Appointment Laboratory Medicine Angélica Granger P.A.-C. [address] [place] [address] [phone] documented as of this encounter Visit Diagnoses Not on filedocumented in this encounter Additional Health Concerns Assessment Noted Time PHQ-9 Depression Total Score: 4 08/11/2013 10:10 AM CS T documented as of this encounter
--- OUTSIDE RECORDS SUMMARY | 2022-05-17 19:07 | XMS_ITS | Encounter Summary ---
:1955 Author Organization [facility] Address [address] [place] [address] Care Team Providers Name Role Phone Unavailable Primary Care Provider Unavailable Encounter Details Date Type Department Care Team Description 07/05/2014 - Hospital Encounter HX [facility] Bonny Wen, 07/07/2014 [facility] [address] [place] [address] Social History Tobacco Use Types [...] at Date Recorded Male 05/16/2020 4:27 PM TALKING BOOKS 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 documented as of this encounter Last [...] 2014 14:11 MST *Final* Hosp Discharge Instructions [facility] Patient Discharge Instructions Name:JOSE ALEJANDRO CUELLO Current Date: 07-Jul-2014 14:11:42 : 1955 12:00 AM Allergies: SEROquel; ZyPREXA; citalopram; erythromycin; ciprofloxacin Your safety is our concern. Please bring a current list of your medications and dosages (including ycja-qkf-xzldddp medicines, vitamins and herbals) or the medication bottles with you for all your [facility] appointments and Emergency Department visits. A Discharge [...] appointment for our smoking cessation/nicotine program please [phone]. It is important to weigh yourself each [...] have any questions or concerns, please call [phone]. This line is open 24 hours a day. When you give your physician's name and your concern, a physician or physician's congressional assistant/nurse practitioner will be notified and will returnyour call to answer your questions. If you need to schedule or reschedule a follow up appointment please call [phone]. If you need to contact your provider with questions or concerns after discharge please call [phone]. You can access parts of your medical record electronically through [facility] Patient Online Services. If you do not have a Patient Online Services account or to log into your account, go to: [email or web address]. If you choose not to establish an online account, you may request copies of your clinical information by calling [phone]. KHUSHBOO Vieira DARYL A, have received the attached list of prescriptions, discharge instructions, and patient education materials and have verbalized understanding: Patient/Responsible Republican Signature Date Relationship to Patient Nurse Signature [...] : f/u with labs next week in [place] 1. Directions for follow up appointment : Patient to call for appointment 2. Physician Name/Group : f/u with Transplant Hepatology in [place] in next 1- 2 weeks 2. Directions for follow up appointment : Itinerary to be sent Seek emergency treatment for : Chest Pain, Shortness of Breath, Chills, Pain not relieved by medication Call your physician for : Temperature > 100.4 (38 celsius) Contact information/Calling instructions : Liver Transplant Nurse Coordinator, Other: [facility] Senior Care Manager Harshal MCPHERSON MS, RN, Yu German - 07-Jul-2014 12:58 MST Diet Discharge Diet : Regular Harshal MCPHERSON MS, RN, Yu German - 07-Jul-2014 12:58 MST Activity Instructions ([place]) General Activity Limitation/Instructions : No restrictions Harshal MCPHERSON MS, RN, Yu German - 07-Jul-2014 12:58 [facility] Special Instructions ([place]) Pain Management Discharge Instructions [...] 12:58 MST End of Discharge Instructions Reference: [facility]-[id number] Yu Caputo APRN, C.N.P., D.N.P., M.S. - 07/07/2014 12:00 AM MST Result Type: Hosp Discharge Summary Result Date: 07 July 2014 00:00 MST Result Status: Auth (Verified) Performed By: Harshal GREENE DNP, MS, CNP,Yu ELMORE on 07 July 2014 14:37 MST Verified By: Harshal GREENE DNP, MS, VIDA,RNYu on 08 July 2014 08:44 MST *Final* [facility] HOSPITAL DISCHARGE SUMMARY Patient Name: Jose Alejandro Cuello Provider Name: Yu Caputo R.N., C.N.PDemetrius : 1955 Attending Phys: Lynn Wen M.D. Age: 58 Admit Date: 07/05/2014 Facility Name: [facility] Discharge Date: 07/07/2014 Service: Transplant-Hepatology Visit Type: [...] cholangiopathy, all of which were performed at [facility]. Mr. Cuello presented to [facility] Emergency Room on July 05 [...] until titrated off. The patient's post liver adult daycare coordinator in [place] has been contacted andnotified. The patient is [...] will follow up next week back in [place] with Liver Transplant Clinic. At this time, the patient's liver function tests are completely stable. He remains immunosuppressed with Prograf, now at 3 mg p.o. twice daily and Prograf level today was noted to be 6.9. We will defer to [place] for ongoing immunosuppression, but have recommended holding CellCept at this time and either restarting at 250 mg p.o. twice daily or initiating Imuran therapy if patient does require dual therapy. SPECIAL INSTRUCTIONS: Please forward a copy of this dictated note to Roshan Grace, post liver adult daycare coordinator for [facility]. MARIELA/andra Reference: [facility]-[id number] Shellie Westbrook, R.N. - 07/05/2014 4:04 PM [...] ED Patient disposition. : Admit (Not OR, Mail Sorter And Delivery or ICU) Discharged with : Self Patient transported by/with : RN, IV, Inspector Wreath, ACLS Report Called? : Yes Pt belongings/medical equipment : sent to floor with patient Report Called To : CATARINA BOTELLO, [phone] Time Report Called : 05-Jul-2014 16:05 MST SNF Patient discharged to : Discharge Comments : PT A+OX3, PWD, CALLED REPORT TO , CATARINA BOTELLO, [id number], USING UNIT TO UNIT HAND OFF, ALL QUESTIONS ANSWERED Shellie Westbrook RN - 05-Jul-2014 16:04 MST ED Education ED Education Topics : Admission Plan ED Instruction Provided to : Patient Shellie Westbrook RN - 05-Jul-2014 16:04 MST Reference: MCAF-[id number] ING BOOKS 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 documented in this encounter Medications at Time [...] to follow for now. Amando Wynn PA-C [id number] Professional Services Billing: HV1 TT 15 minutes. Reference: [facility]-[id number] Joss Osuna M.D. - 07/07/2014 7:47 AM [...] Ordered Prograf: 3 mg, 3 Cap, PO, [id number] Unasyn: 3 g, 200 mL/hr, IVPB, Q12H [...] / Other Radiology Orders rad CT Neck WO/TALKING BOOKS 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 rad Chest, PA+ Lateral rad Panorex [place] [...] ID issues Professional Services Billing: 2. Reference: MCAF-[id number] ING BOOKS 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 Yu Caputo, RAMONA, C.N.P., D.N.P., M.S. - 07/06/2014 7:00 AM MST Result Type: Hosp TxHepa Progress Note Result Date: 06 July 2014 07:00 MST Result Status: Modified Result Title: Transplant Hepatology Progress Note Performed By: Harshal GREENE DNP,MS, GROCERY MANAGER,RN, Yu German on 06 July 2014 09:00 MST Verified By: Harshal GREENE DNP,MS, GROCERY MANAGER,RN, Yu German on 06 July 2014 09:00 [...] mg = 3 Cap ; PO ; [id number] ; 07/05/14 20:00 aspirin ; 81 mg = 1 Tab ; PO ; DailyMeal ; 07/06/14 08:00 clonazePAM ; 0.5 mg = 1 Tab ; PO ; QHS ; 07/05/14 21:00 lamoTRIgine ; 200 mg = 2 Tab ; PO ; BID ; 07/05/14 21:00 Norvasc ; 10 mg = 2 Tab ; PO ; [id number] ; 07/05/14 21:00 neuPOGEN ; 480 mcg [...] 05-Jul-2014 16:05 MST Temperature Value 38.1 DegC [place] 05-Jul-2014 12:25 MST Temperature Value 38.1 DegC [place] 05-Jul-2014 10:14 MST Temperature Value 39.8 DegC [place] Description: Intake/Output Net Balance : 2072.00 Yesterday's [...] intact. Psych: Normal: Normal affect. Results Review [facility] (Results Since Midnight) L 133 102 [...] / Other Radiology Orders rad CT Neck WO/TALKING BOOKS 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 rad Chest, PA+ Lateral rad [facility]orex [place] . 05-Jul-2014 15:53 Final Panorex Dental amalgam. The roots of the teeth are unremarkable. 25-Jun-2014 13:[address] Neck WO/TALKING BOOKS 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 COMPARISON: None Available FINDINGS: Noncontrast study performed [...] parotid obstruction.. Professional Services Billing: HV2. Reference: MCAF-[id number] Amando Brown P.A.-C., M.S. - 07/06/2014 12:00 AM MST Result Type: ORL Miscellaneous Note Result Date: 06 July 2014 00:00 MST Result Status: Auth (Verified) Performed By: Stephanie VASQUEZ, Amando STILL on 06 July 2014 17:23 MST Verified By: Stephanie VASQUEZ MS, Jaime on 25 July 2014 07:58 MST *Final* [facility] [place] HOSPITAL REPORT Patient Name: Jose Alejandro Cuello Service Date: 07/06/2014 Facility Name: [facility] : 1955 Provider Name: Amando Wynn P.A.-C. [...] daily for approximately 7-10 days. GAVIN/zafar Reference: [facility]-[id number] ING BOOKS 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 Shellie Westbrook R.N. - 07/05/2014 12:16 PM [...] Rachael A - 05-Jul-2014 12:16 MST Reference: [facility]-[id number] ING BOOKS 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 Bonny Wen M.D. - 07/05/2014 12:00 AM MST Result Type: Hosp Hepatology Supervisory Note Result Date: 05 July 2014 00:00 MST Result Status: Auth (Verified) Performed By: Bonny Wen MD on 05 July 2014 19:43 MST Verified By: Bonny Wen MD on 06 July 2014 13:28 MST *Final* [facility] SUPERVISORY NOTE Patient Name: Jose Alejandro Cuello Service Date: 07/05/2014 Facility Name: [facility] : 1955 Provider Name: Lynn Wen M.D. Age: 58 Service: Hepatology Visit Type: Hosp Staff/Supervisory Note Admission note to follow the note of Sol Cornelius, CATARINA, GROCERY MANAGER. Mr. Jose Alejandro Cuello is a 58-year-old [...] series because of facial discomfort. LUCHO/eamon Reference: [facility]-[id number] ING BOOKS 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 documented in this encounter H&P Notes Sol Cornelius APRN, D.NJuan Miguel, N.P., M.S. - 07/05/2014 12:00 AM MST Result Type: Hosp Admission H&P Result Date: 05 July 2014 00:00 MST Result Status: Auth (Verified) Performed By: Adryan GREENE, SUNNY, MS, COMMUNITY HEALTH EDUCATOR, Sol on 05 July 2014 15:26 MST Verified By: Adryan GREENE DNP, , COMMUNITY HEALTH EDUCATOR, Sol on 05 July 2014 17:17 MST *Final* [facility] [place] HOSPITAL REPORT Patient Name: Jose Alejandro Cuello Service Date: 07/05/2014 Facility Name: [facility] : 1955 Provider Name: Sol Cornelius R.N., C.N.P. Age: 58 Service: Transplant-Hepatology Visit Type: Hosp Admission H&P SUPERVISING PHYSICIAN: Dr. Efrain Wen. REASON FOR ADMISSION: Neutropenic fever, oral canker sore. 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 The patient presented to the Emergency Room [...] and CellCept. The patient came here in [place] for golfing. He apparently has been having [...] for ischemic cholangiopathy June 13, 2013, at [facility]. 2. Umbilical hernia repair on September 03, [...] Dr. Scott Granger, coordinator Roshan Grace at [place], and [place]. BRIDGETT/janice Reference: [facility]-[id number] documented in this encounter Consult Notes Joss Osuna M.D. - 07/06/2014 12:00 AM MST Result Type: Hosp InfDis Consult Result Date: 06 July 2014 00:00 MST Result Status: Auth (Verified) Performed By: Joss Osuna MD on 06 July 2014 11:19 MST Verified By: Joss Osuna MD on 06 July 2014 12:12 MST *Final* [facility] [place] HOSPITAL REPORT Patient Name: Jose Alejandro Cuello Service Date: 07/06/2014 Facility Name: [facility] : 1955 Provider Name: Joss Osuna M.D. [...] by Hematology regarding his neutropenia. MARIETTA/andra Reference: MCAF-[id number] ING BOOKS 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 Amando Brown P.A.-Arley., M.S. - 07/06/2014 12:00 AM MST Result Type: Hosp ORL Consult Result Date: 06 July 2014 00:00 MST Result Status: Auth (Verified) Performed By: Stephanie VASQUEZ MS, Jaime on 06 July 2014 08:49 MST Verified By: Stephanie VASQUEZ MS, Jaime on 06 July 2014 11:38 MST *Final* [facility] HOSPITAL REPORT Patient Name: Jose Alejandro Cuello Service Date: 07/06/2014 Facility Name: [facility] : 1955 Provider Name: Amando Wynn P.A.-C. [...] for ischemic cholangiopathy June 13, 2013, at [facility]. 2. Umbilical hernia repair on September 03, [...] ENT will continue to follow. GAVIN/nhi Reference: MCAF-[id number] Idalmis Costa - 07/05/2014 12:02 PM MST Result Type: ED Consult Call Request Result Date: 05 July 2014 12:02 [facility] Result Status: Auth (Verified) Result Title: ED Consult Call Request Performed By: Idalmis Chatman on 05 July 2014 12:02 [facility] Verified By: Idalmis hCatman on 05 July 2014 12:02 [facility] *Final* ED Consult Call Request Entered On: 05-Jul-2014 12:03 MST Performed On: 05-Jul-2014 12:02 MST by Idalmis Chatman ED Consult Call Request ED Consult Requested 1 : Hepatology ED Consult Call placed by : Yu Hernandez MD, Jo F - 05-Jul-2014 12:02 [facility] ED Consult Call 1 - Grid Consult MD Call 1 ED Consult Phone # : [phone] Attempt #1 Call Time : 11:51 [facility] ED Time Consult Call Returned : 12:03 [facility] Idalmis Chatman - 05-Jul-2014 12:02 MST Reference: MCAF-[id number] ING BOOKS 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 documented in this encounter Nursing Notes Conversion, [...] Home Discharge from unit accompanied by : [facility] Printed Materials : Yes Discharge Instructions Reviewed With : Patient, Family Prescription(s) Given to : Patient All Belongings Sent with Pt on Discharge : Yes Patient ID Wrist Band Removed : Yes Shukri ELMORE, Arley.M.S.R.Anais, Lesa Redman - 07-Jul-2014 17:05 MST Reference: MCAF-[id number] Conversion, Historical Provider Ser - 07/07/2014 2:50 [...] redrawn, f/u with primary transplant physician in [place] [Shukri ELMORE, Alrey.M.S.R.NDemetrius, Lesa Redman - 07-Jul-2014 17:04 MST] ) [...] During Your Hospital Stay Education Pamphlet Given ([id number]) Shukri ELMORE, Arley.M.S.R.NLesa Romo - 07-Jul-2014 17:04 MST Reference: [id number] Yu Caputo, RAMONA, C.N.P., D.N.P., M.S. - 07/07/2014 1:04 PM MST Result Type: Hosp Discharge Core Measures Result Date: 07 July 2014 13:04 MST Result Status: Auth (Verified) Result Title: Discharge Core Measures Performed By: Harshal GREENE DNP,MS, GROCERY MANAGER,RN, Yu German on 07 July 2014 13:04 MST Verified By: Harshal GREENE DNP,MS, GROCERY MANAGER,RN, Yu German on 07 July 2014 13:04 MST *Final* Discharge Core Measures Entered On: 07-Jul-2014 13:04 MST Performed On: 07-Jul-2014 13:04 MST by Harshal MCPHERSON MS, RN, Yu German Discharge Diagnosis heart failure diagnosis : No acute CA diagnosis : No Ischemic Stroke/ICH/SAH diagnosis : No Does the patient have a comfirmed VTE? : No diagnosis of DVT/PE Harshal MCPHERSON, MS, RN, Yu German - 07-Jul-2014 13:04 MST Reference: [facility]-[id number] ING BOOKS 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 Conversion, Historical Provider Ser - 07/07/2014 9:00 [...] During Your Hospital Stay Education Pamphlet Given ([id number]) Shukri ELMORE, Arley.M.S.R.NDemetrius, Lesa Redmna - 07-Jul-2014 10:36 MST Reference: MCAF-[id number] Conversion, Historical Provider Ser - 07/07/2014 9:00 [...] During Your Hospital Stay Education Pamphlet Given ([id number]) Shukri ELMORE, Arley.M.S.R.NLesa Romo - 07-Jul-2014 10:35 MST Reference: [id number] Tereza Garduno R.N., [facility] - 07/07/2014 6:55 AM MST Result [...] Garduno RN - 07-Jul-2014 06:55 MST Reference: [id number] ING BOOKS 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 Tereza Garduno R.N., CHPN - 07/06/2014 9:00 [...] During Your Hospital Stay Education Pamphlet Given ([id number]) Tereza Garduno RN - 06-Jul-2014 21:00 [facility] Reference: [facility]-[id number] ING BOOKS 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 Francesca Amato R.N., RN-RADHA - 07/06/2014 5:50 [...] Zuniga RN - 06-Jul-2014 17:50 MST Reference: [id number] ING BOOKS 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 Francesca Amato R.N., ZHAO - 07/06/2014 7:30 [...] During Your Hospital Stay Education Pamphlet Given ([id number]) Francesca Zuniga RN - 06-Jul-2014 10:38 MST Reference: [id number] ING BOOKS 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 Francesca Amato R.N., RN-RADHA - 07/06/2014 7:30 [...] During Your Hospital Stay Education Pamphlet Given ([id number]) Francesca Zuniga RN - 06-Jul-2014 10:40 MST Reference: [id number] Tereza Urban R.N., CHPN - 07/06/2014 6:27 [...] Garduno RN - 06-Jul-2014 06:27 MST Reference: [id number] Tereza Urban R.N., CHPN - 07/05/2014 8:38 [...] Garduno RN - 05-Jul-2014 21:37 MST Reference: [id number] ING BOOKS 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 Tereza Garduno R.N. MAUREEN - 07/05/2014 8:29 [...] During Your Hospital Stay Education Pamphlet Given ([id number]) Tereza Garduno RN - 05-Jul-2014 21:16 MST Reference: [facility]-[id number] ING BOOKS 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 Francesca Amato R.N., ZHAO - 07/05/2014 5:00 [...] is on telemetry monitoring. Pt lives in [place] and is in town visiting friends. VSS, afebrile upon admission to floor. Medication list to be brought in by friend. Francesca Zuniga RN - 05-Jul-2014 18:13 MST Reference: [facility]-[id number] ING BOOKS 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 Francesca Amato R.N., ZHAO - 07/05/2014 5:00 [...] During Your Hospital Stay Education Pamphlet Given ([id number]) Francesca Zuniga RN - 05-Jul-2014 17:00 MST Reference: [id number] Shellie Gr R.N. - 07/05/2014 4:04 PM [...] Westbrook RN - 05-Jul-2014 16:04 MST Reference: [id number] Shellie Gr R.N. - 07/05/2014 12:35 PM [...] MD, RN, Rachael A - 05-Jul-2014 12:41 [facility] Reference: [id number] ING BOOKS 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 Shellie Westbrook R.N. - 07/05/2014 12:25 PM [...] Reviewed/Verified : Other: TO BE COMPLETED BY TENSION MACHINE OPERATOR Date MEDS last updated : 05-Jul-2014 [facility] Allergies to anticoagulants or history of HIT : No Transdermal patch present : NO Has the patient had a procedure in the past 4 days? : No EXPAREL Smart Template : Med Given: Shellie Westbrook RN - 05-Jul-2014 12:34 [facility] Medication List (As Of: 05-Jul-2014 12:35:07 MST) [...] Unknown Shellie Westbrook RN - 05-Jul-2014 12:34 [facility] ED PMH PMH reviewed/updated with : Patient Date PMH last updated : 05-Jul-2014 [facility] Health History : Yes, as noted below [...] Meaningful Use Tobacco History Documented : 05-Jul-2014 [facility] Shellie Westbrook RN - 05-Jul-2014 12:34 [facility] Social History (As Of: 05-Jul-2014 12:34:36 MST) Tobacco: Never Smoker (Last Updated: 05-Jul-2014 12:34:18 MST by Shellie Westbrook RN ) ED Baseline Evaluation [place] Patient is adult (18 or above) : Yes Complaint today related to an acute/prior fall? : No Primary Language : Jamaican Barriers to Learning : None Proof Press Operator Needed : NO ED unintent wt loss [...] : No Shellie Westbrook RN 05-Jul-2014 12:34 [facility] ED Baseline Assessment Level of consciousness (LOC) : Alert Respiratory Pattern : Regular Skin Color : [place] Neuro Orientation : Alert and Oriented x3 Respiratory Effort : No Distress Noted Skin Temperature : Warm Neuro Behavior : Cooperative Skin Characteristics : Dry Cough Pattern : None Shellie Westbrook RN 05-Jul-2014 12:34 [facility] Standards WD Standard Neurological : NEUROLOGICAL: [...] During Your Hospital Stay Education Pamphlet Given ([id number]) Shellie Westbrook RN - 05-Jul-2014 12:34 MST ED [place] Coma Assessment [place] Is Patient 3 or Older : Yes [place] Best Motor Adult. : 6 = Obeys Commands [place] Best Verbal Adult : 5 = Oriented [place] Eyes Open Adult : 4 = Spontaneously [place] Coma Scale Score Adult : 15 Shellie Westbrook RN - 05-Jul-2014 12:34 MST Reference: [id number] ING BOOKS 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 Shellie Westbrook R.N. - 07/05/2014 12:16 PM [...] MST Shellie Westbrook RN - 05-Jul-2014 13:36 [facility] ED Nursing Progress Note 2 : PT A+OX3, PWD, PT LYING ON STRETCHER RESTING IN ROOM 5, PT ON MONITOR, 18G IV PLACED LEFT FORARM. FLUIDS STARTED AND UNASYN GIVEN. Shellie Westbrook RN - 05-Jul-2014 15:51 [facility] Reference: [id number] ING BOOKS 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 Diane Wright M.S.N., R.N. - 07/05/2014 10:14 AM MST Result Type: ED Triage Result Date: 05 July 2014 10:14 [facility] Result Status: Auth (Verified) Result Title: ED Triage Performed By: Kyle FARLEY RN, Tiffany E on 05 July 2014 10:14 [facility] Verified By: Kyle FARLEY RN, Tiffany E on 05 July 2014 10:14 [facility] *Final* ED Triage Entered On: 05-Jul-2014 10:18 MST Performed On: 05-Jul-2014 10:14 [facility] by Diane Wright R.N. ED Triage Assessment [...] No Diane Wright R.N. - 05-Jul-2014 10:14 [facility] ED Arrival Mode of Arrival : Private vehicle Accompanied By : None Mode of Transportation : Ambulatory Patient Received from SNF : NO Diane Wright R.N. - 05-Jul-2014 10:14 [facility] ED Vital Signs ED BP Evaluation - Triage : Adult NISBP : 158 mmHg (HI) NIDBP : 88 mmHg Heart Rate : 85 bpm Source NIBP : Arm, Automatic Cuff Temperature Value : 39.8 DegC(Converted to: 103.6 DegF) (KS) Temperature Mode : Core Resp Rate Total : 20 Br/min SPO2 : 97 % How O2 obtained : Room Air Admit Weight : 83.7 kg Weight obtained by : Weight obtained by scale Triage height in inches : 70 Inch(Converted to: 178 cm) Height (Adult) : 178 cm Is patient complaining of pain? : Yes Diane Wright R.N. 05-Jul-2014 10:14 [facility] Pain Location/Type/Scale-Grid 1. Pain Location : JAW Pain Type : Aching, Soreness Pain Intensity : 7 Pain Frequency : Constant Diane Wright R.N. 05-Jul-2014 10:14 [facility] ED Pain Scale Rating Score Patient Education : Pain Scale Rating Score education completed and Patient/Family/Significant Other verbalizes understanding LMP Evaluation : Male Diane Wright R.N. 05-Jul-2014 10:14 [facility] ED Allergies Date Allergies last updated : 05-Jul-2014 [facility] Diane Wright R.N. 05-Jul-2014 10:14 [facility] (As Of: 05-Jul-2014 10:18:15 [facility]) ED PMH PMH reviewed/updated with : Patient Date PMH last updated : 05-Jul-2014 [facility] Health History : Yes, as noted below Diane Wright R.N. 05-Jul-2014 10:14 [facility] Previous Surgery History 1. Previous Surgery : Liver Transplant Date of Previous Surgery : 1998 Diane Wright R.N. 05-Jul-2014 10:14 MST 2. Previous Surgery [...] ANKLE SURGERY Diane Wright R.N. 05-Jul-2014 10:14 [facility] Endocrine History : Hypothyroidism Genitourinary History : Renal Failure Diane Wright R.N. 05-Jul-2014 10:14 [facility] ED Baseline Assessment Level of consciousness (LOC) : Alert Respiratory Pattern : Regular Skin Color : [place] Neuro Orientation : Alert and Oriented x3 Respiratory Effort : No Distress Noted Skin Temperature : Warm Neuro Behavior : Cooperative Skin Characteristics : Dry Cough Pattern : None Diane Wright R.N. 05-Jul-2014 10:14 [facility] ED Treatment Performed in Triage DCP GENERIC CODE Acuity : Level 2 Tracking Group : [facility] ED Diane Wright R.N. 05-Jul-2014 10:14 [facility] Triage Provider : Diane Wright R.N., R.N., Tiffany E - 05-Jul-2014 10:14 [facility] Reference: [facility]-[id number] ING BOOKS 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 documented in this encounter ED Notes Yu Hernandez M.D. - 07/05/2014 12:00 AM MST Result Type: ED Evaluation Result Date: 05 July 2014 00:00 [facility] Result Status: Auth (Verified) Performed By: Yu Hernandez MD, I on 05 July 2014 10:50 MST Verified By: Yu Hernandez MD, I on 17 July 2014 17:54 MST *Final* [facility] EMERGENCY DEPARTMENT Patient Name: Jose Alejandro Cuello Service Date: 07/05/2014 Facility Name: [facility] : 1955 Provider Name: Yu Hernandez M.D. [...] doing well. He had his transplant at [place], and he is actually here visiting, scheduled [...] Admission Diagnosis: 1. Neutropenic fever. SIB/ng Reference: [facility]-[id number] ING BOOKS 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 documented in this encounter Miscellaneous Notes Miscellaneous [...] report that he is flying home to [place] today and states that he will f/u with his medical team at [facility] in [place]. Upon questioning, patient denies: fever; chills; increasing [...] info for his healthcare providers and for [facility] [place] as well [place]. ). Does patient/family/caregiver have any questions about [...] he will call his medical team in [place] on Friday to schedule follow up labs [...] Recommendation follow up/referral: No, Follow per this RN/agricultural technician ( Patient/family/caregiver deny any needs at this time and no needs identified. Therefore, no futher follow up per this RN/agricultural technician is indicated at this time. ). Health [...] 100 mg, PO, QHS, PRN: Sleep. Reference: [facility]-[id number] Miscellaneous - Yu Caputo APRN, C.N.P., D.N.P., M.S. - 07/07/2014 12:58 PM MST Result Type: Hosp Discharge Instruction Worksheet Result Date: 07 July 2014 12:58 MST Result Status: Auth (Verified) Result Title: Hosp Discharge Instruction ([place]) Performed By: Harshal GREENE DNP,, VIDA,RN, Yu German on 07 July 2014 12:58 MST Verified By: Harshal GREENE DNP, MS, VIDA,RNYu on 07 July 2014 12:58 [facility] *Final* Hosp Discharge Instruction ([place]) Entered On: 07-Jul-2014 13:03 MST Performed On: 07-Jul-2014 12:58 MST by Harshal MCPHERSON MS, RN, Yu German Interdisciplinary Discharge Instructions [place] 1. Physician Name/Group : f/u with labs next week in [place] 1. Directions for follow up appointment : Patient to call for appointment 2. Physician Name/Group : f/u with Transplant Hepatology in [place] in next 1- 2 weeks 2. Directions for follow up appointment : Itinerary to be sent Seek emergency treatment for : Chest Pain, Shortness of Breath, Chills, Pain not relieved by medication Call your physician for : Temperature > 100.4 (38 celsius) Contact information/Calling instructions : Liver Transplant Nurse Coordinator, Other: [facility] Senior Care Manager Harshal MCPHERSON MS, RN, Yu German - 07-Jul-2014 12:58 MST Diet Discharge Diet : Regular Harshal MCPHERSON MS, RN, Yu German - 07-Jul-2014 12:58 [facility] Activity Instructions (AZ) General Activity Limitation/Instructions : No restrictions Harshal MCPHERSON MS, RN, Yu German - 07-Jul-2014 12:58 [facility] Special Instructions (AZ) Pain Management Discharge Instructions [...] MS, RN, Yu German - 07-Jul-2014 12:58 [facility] Reference: [id number] ING BOOKS 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 Miscellaneous - Conversion, Historical Provider Ser - [...] Lesa Redman - 07-Jul-2014 10:33 MST Reference: MCAF-[id number] Charlettecelllois - Mere Omalley - 07/07/2014 7:38 AM MST Result Type: Hosp Director Of Mobile Marketing Nutrition Screen Result Date: 07 July 2014 07:38 MST Result Status: Auth (Verified) Result Title: Director Of Mobile Marketing Nutrition Screening Performed By: Mere Omalley D.T.R. on 07 July 2014 07:38 MST Verified By: Mere Omalley D.T.R. on 07 July 2014 07:38 MST *Final* Director Of Mobile Marketing Nutrition Screening Entered On: 07-Jul-2014 07:39 MST Performed On: 07-Jul-2014 07:38 MST by Mere Omalley D.T.R. Director Of Mobile Marketing Nutrition Screening Medical Hx Overall dietary intake [...] 07-Jul-2014 07:38 MST SGA Rating : Well-nourished eMre Omalley D.T.R. 07-Jul-2014 07:38 [facility] Reference: MCAF-[id number] ING BOOKS 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 Cyrus - Tereza Garduno RHANK Wilson - [...] Garduno RN - 07-Jul-2014 06:15 MST Reference: MCAF-[id number] ITO Bridges - Tereza Garduno R.N., CHPN [...] Garduno RN - 06-Jul-2014 21:00 MST Reference: MCAF-[id number] ING BOOKS 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 Cyrus - Francesca Amato R.N., RN-BC - [...] Zuniga RN - 06-Jul-2014 17:54 MST Reference: [id number] ING BOOKS 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 Charlettecelllois - Miguelina Mason C.C.MDemetrius - 07/06/2014 [...] No Miguelina Mason RN - 06-Jul-2014 16:48 [facility] Patient Concerns - Grid Adjusting to Illness or Procedure : NO Primary Water Mechanic for Another Person : NO Cultural Needs : NO Effect of Illness/Hospital Stay on Family : NO Effect of Illness/Hospital Stay on You : NO Financial Needs : NO Jewish Needs : NO Spiritual Needs : NO Miguelina Mason RN - 06-Jul-2014 16:48 [facility] Do you feel unsafe in your current [...] oriented x 3. Verified pt. address in [place], [place]. Pt. lives alone. Pt. is s/p Liver transplant x 2 1998 and 05/2013. Pt. had traveled to [place] for a week to golf with friends. Pt. plans to return to [place] on Friday. CM reviewed case with following Medical team and plan will be per ENT recommendation to have pt. do mouth swish, Steroid taper will be initiated. Blood work scheduled for tomorrow and status regarding discharge will be determined then. Pt. verified he follows at [facility] in [place] and will follow up with his transplant team upon return. No further needs on discharge are identified. CM/RAILROAD WATCHMAN will continue to follow. Miguelina Mason RN - 06-Jul-2014 16:48 MST Reference: [facility]-[id number] ING BOOKS 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 Miscellaneous - Юлия Welch MDIV - 07/06/2014 [...] Dana Group : Axel Reyna Spiritual Assessment Rastafarian Communion : No Spiritual Assessment Spiritual Practices : Other: Attends mosque on major holidays. Spiritual Assessment Reason : Initial Visit, New Admission, Recent Loss Spiritual Assessment Issues Summary : Relational Concerns with Others, Other: Existential anxiety devendra relatively young man who has had 2 liver transplants Spiritual Assessment Interventions : Affirmation of Story of Hope, Grief Facilitation, Ministry of Presence, Orientation to Customer Resolution Specialist Services, Reflective Listening, Storytelling, Theological Reflection, Validation of Feeling/Questioning, Other: Pastoral blessing. Spiritual Assessment Visit Impression : Patient engaged readily with adoption worker. He easily processed his grief over his father and seems to bemanaging that well. He also brought up a thorny theological issue - the meaning and efficacy of prayer. And, he engaged at length in discussing this matter. He appreciated the dialogue. Said he didn't t hink he would need to talk with adoption worker again, I think I'll just trust the doctors to use the gifts God has given them to help me out of this. Spiritual Assessment Further Assessment Needed : No Spiritual Assessment Continued Support : Yes Spiritual Assessment Visit Frequency : Other: Per patient request. Spiritual Assessment Contact Local Clergy : No Spiritual Assessment Changes : Patient is in [place] from [place] for a golfing trip; developed pain and fever; admitted to hospital with neutropenic fever. Spiritual Assessment Experiences : Disappointed that he will not be able to catch his return flight to [place] on Friday. Understands that time is necessary to sort out the cause of his neutropenia and to keep him away from crowds in confined spaces to prevent an overwhelming infection. Spiritual Assessment Resources : Patient is unmarried; has many friends. Father 6 months ago after a 3-year stay in a alf; mother still living in [place]; has a sister who lives near his [...] having her tonsils removed. Patient was raised Jewish; stopped going when I was out on my own; does attend on major holidays. Patient believes in God but not as an wire straightener God that favors some people by answering [...] Юлия Looney - 06-Jul-2014 12:51 MST Reference: [facility]-[id number] ITO Bridges - Francesca Amato R.N., RN-BC [...] Zuniga RN - 06-Jul-2014 10:39 MST Reference: [facility]-[id number] ITO Bridges - Tereza Garduno R.N., [facility] - 07/06/2014 6:14 AM MST Result [...] Garduno RN - 06-Jul-2014 06:14 MST Reference: MCAF-[id number] ING BOOKS 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 Miscelllois - Tereza Garduno R.N. MAUREEN - [...] Garduno RN - 06-Jul-2014 06:10 MST Reference: MCAF-[id number] ING BOOKS 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 Tereza Malik R.N., CHPN - 07/06/2014 12:37 [...] Garduno RN - 06-Jul-2014 02:52 MST Reference: [id number] ITO Bridges - Tereza Garduno R.N., CHPN - 07/05/2014 9:55 PM MST Result Type: Pain Response Form Result Date: 05 July 2014 21:55 MST Result Status: Auth (Verified) Result Title: Pain Response Performed By: Tereza Harris RN on 05 July 2014 21:20 MST Verified By: eTreza Harris RN on 05 July 2014 21:20 MST *Final* Pain Response Entered On: 05-Jul-2014 21:20 MST Performed On: 05-Jul-2014 21:55 MST by Tereza Garduno RN Pain Response Medication NOT Given for Pain : Yes Tereza Garduno RN - 05-Jul-2014 21:20 MST Reference: MCAF-[id number] ITO Bridges - Tereza Garduno R.N., CHPN [...] Garduno RN - 05-Jul-2014 20:35 MST Reference: [facility]-[id number] Electronically signed by Tereza Garduno M.S.N., R.NDemetrius, [facility] at 07/05/2014 9:35 PM TALKING BOOKS 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 Miscellaneous - Conversion, Historical Provider Ser - [...] Score >= 15 = High risk Reference: [id number] Miscellaneous - Francesca Amato R.N., CATARINA-RADHA - [...] MST Performed On: 05-Jul-2014 18:16 MST by Francesca Zuniga RN Chart Review Documentation [place] Chart Reviewed for the Following [place] : 12 Hour Chart Review Completed Francesca Zuniga RN - 05-Jul-2014 18:16 MST Reference: [id number] ING BOOKS 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 Miscellaneous - Conversion, Historical Provider Ser - [...] Score >= 15 = High risk Reference: [id number] ACP (Advance Care Planning) - Francesca Amato [...] Zuniga RN - 05-Jul-2014 17:37 MST Reference: [facility]-[id number] ING BOOKS 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 Miscellaneous - Pita Wood R.R.T., R.C.P. - [...] Lindsay A - 05-Jul-2014 17:24 MST Reference: [id number] ING BOOKS 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 Charlettecelllois - Francesca Amato RDemetriusNDemetrius, CATARINA-RADHA - [...] MST Performed On: 05-Jul-2014 17:12 MST by Francesca Zuniga RN Pain Response Pain Type : Aching Pain Location : head, tongue Pain Intensity : 5 Pain Frequency : Constant Non-Verbal Manifestation : Calm Pain Relief Goal : 5 Psychosocial Behavior : Cooperative Pain Intervention : Environmental Stimuli Reduced, Lights dimmed, Quiet Room, Rest Francesca Zuniga RN - 05-Jul-2014 18:20 MST Reference: [id number] ITO Bridges - Shellie Westbrook RDemetriusNDemetrius - [...] Westbrook RN - 05-Jul-2014 15:26 MST Reference: [id number] ING BOOKS 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 Cyrus - Shellie Westbrook RDemetriusNDemetrius - 07/05/2014 [...] Westbrook RN - 05-Jul-2014 13:22 MST Reference: MCAF-[id number] ING BOOKS 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 Miscellaneous - Yoselin Webster, R.N. - 07/05/2014 10:27 AM MST Result Type: ED Inspector Wreath Application Result Date: 05 July 2014 10:27 MST Result Status: Auth (Verified) Result Title: ED Inspector Wreath Application Performed By: Yoselin Webster RN on 05 July 2014 11:42 MST Verified By: Yoselin Webster RN on 05 July 2014 11:42 MST *Final* ED Inspector Wreath Application Entered On: 05-Jul-2014 11:42 MST Performed On: 05-Jul-2014 10:27 MST by Yoselin Webster RN ED Inspector Wreath Application ED Inspector Wreath Applied : Yes ED Type Inspector Wreath Applied : 5 Lead Yoselin Webster RN - 05-Jul-2014 11:42 MST Reference: [id number] ING BOOKS 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 documented in this encounter Plan of Treatment Upcoming Encounters Date Type Specialty Care Team Description 05/22/2022 Appointment Laboratory Medicine Scott Granger P.A.-C. [address] [place] [address] 05/23/2022 Clinical Admitting/Central Communication Scheduling 05/27/2022 Comprehensive Visit Orthopedic Surgery Markus Sams M.D., Ph.D. [address] [place] [phone] 05/29/2022 Office Visit Otorhinolaryngology Dex Matta APRN, C.N.P., M.S.N. [address] [place] [phone] 05/29/2022 Office Visit Otorhinolaryngology Nadeem Maradiaga P.A.-C., M.S. [address] [place] [phone] 05/31/2022 Appointment Radiology Guilherme Matt MPAS, Edmundo, M.S. [address] [place] [phone] 06/05/2022 Appointment Laboratory Medicine Scott Granger P.A.-C. [address] [place] [phone] 06/19/2022 Appointment Laboratory Medicine Scott Granger P.A.-C. [address] [place] [phone] 07/03/2022 Appointment Laboratory Medicine Scott Granger P.A.-C. [address] [place] [phone] 07/17/2022 Appointment Laboratory Medicine Scott Granger P.A.-C. [address] [place] [phone] 07/31/2022 Appointment Laboratory Medicine Scott GrangerEdmundo [address] [place] [phone] 08/14/2022 Appointment Laboratory Medicine Scott GrangerEdmundo [address] [place] [address] 08/28/2022 Appointment Laboratory Medicine Scott GrangerEdmundo [address] [place] [phone] documented as of this encounter Procedures Procedure [...] Results Pathologist Comment (07/07/2014 6:58 AM MST) [facility] Method Time Signature Technologist PB SeeComment HX [...] (07/07/2014 6:58 AM MST) Analysis Performed At [facility] logist Time Signature SPSMA Result Performed HX [...] Component Value Ref Test Analysis Performed At [facility] gist Range Method Time Signature CBC Comment Also see HX hematopathologist [place]/ARIZ review below. JATIN CONVERSION Specimen Anatomical Collection [...] with Differential, Blood (07/07/2014 6:58 AM MST) [facility] Method Time Signature Eosinophils 0.09 0.00 - [...] [place]URISIO CONVERSION GGT (Gamma-Glutamyltransferase) (07/07/2014 6:58 AM [facility]) [facility] Method Time Signature Gamma 33 12 - 48 HX Glutamyltransferase U/L [place]/AR IZO (GGT), S NA CONVERSION Specimen Anatomical Collection Method Collection Time Receive d Time (Source) Location / / Volume Laterality 07/07/2014 6:58 AM 5 6:58 MST AM MST Historical Provider LAB BLOOD ADD-ON Performing Organization Address [facility] Code Phon e Number HX [place]URISIO CONVERSION [...] Provider LAB BLOOD ADD-ON Performing Organization Address [facility] Phon e Number HX [place]URISIO CONVERSION Bilirubin, Direct (07/07/2014 6:58 AM MST) P athologist Signature Bilirubin, <0.2 0.0 - 0.3 HX Direct, S mg/dL [place]/MAURISIO CONVERSION Specimen Anatomical Collection Method Collection Time Receive d Time (Source) Location / / Volume Laterality 07/07/2014 6:58 AM 5 6:58 MST AM MST Historical Provider LAB BLOOD ADD-ON Performing Organization Address [facility] Phon e Number HX [place]URISIO CONVERSION [...] Provider LAB BLOOD ADD-ON Performing Organization Address [facility] Phon e Number HX [place] CONVERSION (ABNORMAL) Creatinine with Estimated GFR (07/07/2014 6:58 AM MST) P athologist Signature Creatinine 2.1 (H) 0.8 - 1.3 HX mg/dL [place]URISIO CONVERSION Specimen Anatomical Collection Method Collection Time Receive d Time (Source) Location / / Volume Laterality 07/07/2014 6:58 AM 5 6:58 MST AM MST Historical Provider LAB BLOOD ADD-ON Performing Organization Address [facility] Phon e Number HX [place]URISIO CONVERSION [...] ADD-ON Performing Organization Address City/[facility] Phon e Number HX [place]ISIO CONVERSION [...] CONVERSION AST (Aspartate Aminotransferase) (07/07/2014 6:58 AM [facility]) [facility] Method Time Signature Aspartate 21 8 - 48 HX Aminotransferase U/L [place]/ARIZO N (AST), S A CONVERSION Specimen Anatomical Collection Method Collection Time Receive d Time (Source) Location / / Volume Laterality 07/07/2014 6:58 AM 5 6:58 MST AM MST Historical Provider LAB BLOOD ADD-ON Performing Organization Address City/State/ZIP Code Phon e Number HX [place] CONVERSION ALT (Alanine Aminotransferase) (07/07/2014 6:58 AM [facility]) [facility] Method Time Signature Alanine 23 7 - 55 HX Aminotransferase U/L [place] N (ALT), S A CONVERSION Specimen Anatomical Collection Method Collection Time Receive d Time (Source) Location / / Volume Laterality 07/07/2014 6:58 AM 5 6:58 MST AM MST Historical Provider LAB BLOOD ADD-ON Performing Organization Address City/State/ZIP Code Phon e Number HX [place] CONVERSION Tacrolimus Level (07/07/2014 6:58 AM [facility]) P athologist Signature Tacrolimus, B 6.9 5.0-15.0 HX (Trough) [place]IS[place] ng/mL CONVERSION Specimen Anatomical Collection Method Collection Time Receive d Time (Source) Location / / Volume Laterality 07/07/2014 6:58 AM 5 6:58 MST AM MST Historical Provider LAB BLOOD NON ADD-ON Performing Organization Address City/State/ZIP Code Phon e Number HX [place] CONVERSION (ABNORMAL) LD (Lactate Dehydrogenase) (07/07/2014 6:58 AM [facility]) [facility] Method Time Signature Lactate 292 (H) 122 [...] Estimated Glomerular Filtration Rate (07/07/2014 6:58 AM [facility]) Analysis Performed At Patho logist Time Signature [...] 07/07/2014 6:58 AM 5 6:58 MST AM [facility] Historical Provider LAB HISTORICAL ORDERS Performing Organization Address City/State/ZIP Code Phon e Number HX [place]IS[place] CONVERSION HIV-1/-2 Ag and Ab Screen (07/06/2014 7:04 AM MST) Analysis Performed At Patho [facility] Time Signature HIV-1/-2 Ag Negative Negative HX and Ab Screen, [place]/ARIZON S A CONVERSION Comment: Negative result does not rule out HIV in fection. If acute HIV infection is suspected in a hi gh-risk individual, submit plasma specimen for H IV-1 RNA quantification test (HIVQU) and/or HIV-2 DNA/RNA test (FHV2Q). Test Performed by: [place] [address] Road Conductor: Bonny Frankel Specimen Anatomical Collection Method Collection Time Receive d Time (Source) Location / / Volume Laterality 07/06/2014 7:04 AM 5 7:04 MST AM MST Sol Cornelius APRN, D.N.P., AGACNP-RADHA, M.S. LAB CA CROBIOLOGY - BLOOD ORDERABLES Performing Organization Address City/[facility]/ZIP Code Phon e Number HX [place]IS[place] CONVERSION Pathologist Comment (07/06/2014 7:04 AM MST) [facility] Method Time Signature Technologist PB SeeComment HX Smear Review [place]/ARIZO NA CONVERSION Comment: 3-5-HPF Elliptocytes. Dohle bodies prese nt. Toxic-reactive neutrophils present. Reported by hematology technolo [facility]. Specimen Anatomical Collection Method Collection Time Receive d Time (Source) Location / / Volume Laterality 07/06/2014 7:04 AM 5 7:04 MST AM MST Historical Provider LAB PATHOLOGY/CYTOLOGY ORDER OSMEL Performing Organization Address City/[facility] Phon e Number HX [place]URISIO CONVERSION (ABNORMAL) Manual Differential, B (07/06/2014 7:04 AM MST) [facility] Method Time Signature Nucleated RBC 0 /100 [...] ADD-ON Performing Organization Address City/[facility] Code Phon e Number HX [place]URISIO CONVERSION [...] LAB BLOOD NON ADD-ON Performing Organization Address [facility] Phon e Number HX [place] CONVERSION T4 (Thyroxine), Total Only (07/06/2014 7:04 AM MST) P athologist Signature T4 5.4 4.5 - 11.7 HX (Thyroxine), mcg/dL [place]URISIO Total Only, S CONVERSION Specimen Anatomical Collection Method Collection Time Receive d Time (Source) Location / / Volume Laterality 07/06/2014 7:04 AM 5 7:04 MST AM MST Sol Cornelius APRN, D.N.P., AGACNP-BC, M.S. LAB BL OOD ADD-ON Performing Organization Address City/State/ZIP Code Phon e Number HX [place] CONVERSION T3 (Triiodothyronine), Free (07/06/2014 7:04 AM MST) athologist Signature T3 2.2 2.0 - 3.5 HX (Triiodothyron pg/mL [place]URISIO ine), Free, S CONVERSION Comment: Test Performed by: [place] [address] Road Conductor: Bonny Frankel Specimen Anatomical Collection Method Collection Time Receive d Time (Source) Location / / Volume Laterality 07/06/2014 7:04 AM 5 7:04 MST AM MST Sol Cornelius APRN, D.N.P., DOREEN, M.S. LAB BL OOD ADD-ON Performing Organization Address City/[facility]/ZIP Code Phon e Number HX [place] CONVERSION S-TSH (Thyroid-Stimulating Hormone - Sensitive) (07/06/2014 7:04 AM MST) athologist Signature TSH, Sensitive 2.24 0.30 - HX 4.20 mIU/L [place]URISIO CONVERSION Specimen Anatomical Collection Method Collection Time Receive d Time (Source) Location / / Volume Laterality 07/06/2014 7:04 AM 5 7:04 MST AM MST Louie Pollock APRNN.P., DOREEN, M.S. LAB BL OOD ADD-ON Performing Organization Address City/State/ZIP Code Phon e Number HX [place] CONVERSION (ABNORMAL) Vancomycin, Trough (07/06/2014 7:04 AM MST) athologist Signature Vancomycin, 8.8 (L) 10.0 - HX Trough, S 20.0 [place]/ARIZON mcg/mL A CONVERSION Specimen Anatomical Collection Method Collection Time Receive d Time (Source) Location / / Volume Laterality 07/06/2014 7:04 AM 5 7:04 MST AM MST Louie Pollock APRNN.P., DOREEN, M.S. LAB BL OOD NON ADD-ON Performing Organization Address City/State/ZIP Code Phon e Number HX [place] CONVERSION (ABNORMAL) Tacrolimus Level (07/06/2014 7:04 AM MST) P athologist Signature Tacrolimus, B 2.7 (L) 5.0-15.0 HX (Trough) [place]IZON ng/mL A CONVERSION Specimen Anatomical Collection Method Collection Time Receive d Time (Source) Location / / Volume Laterality 07/06/2014 7:04 AM 5 7:04 MST AM MST Historical Provider LAB BLOOD NON ADD-ON Performing Organization Address City/State/ZIP [facility] Phon e Number HX [place]URIS[place] CONVERSION ALT (Alanine Aminotransferase) (07/06/2014 7:04 AM MST) Patholo gist Method Time Signature Alanine 15 7 - 55 HX Aminotransferase U/L [place]O N (ALT), S A CONVERSION Specimen Anatomical Collection Method Collection Time Receive d Time (Source) Location / / Volume Laterality 07/06/2014 7:04 AM 5 7:04 MST AM MST Historical Provider LAB BLOOD ADD-ON Performing Organization Address City/[facility]/ZIP [facility] Phon e Number HX [place]URISIO CONVERSION AST (Aspartate Aminotransferase) (07/06/2014 7:04 AM [facility]) Patholo gist Method Time Signature Aspartate 15 8 - 48 HX Aminotransferase U/L [place]IZO N (AST), S A CONVERSION Specimen Anatomical Collection Method Collection Time Receive d Time (Source) Location / / Volume Laterality 07/06/2014 7:04 AM 5 7:04 MST AM MST Historical Provider LAB BLOOD ADD-ON Performing Organization Address City/[facility] Phon e Number HX [place]/MAURISIO CONVERSION (ABNORMAL) Protein, Total (07/06/2014 7:04 AM MST) P athologist Signature Protein, 5.8 (L) 6.3 - 7.9 HX Total, S g/dL [place]/ARIZON A CONVERSION Specimen Anatomical Collection Method Collection Time Receive d Time (Source) Location / / Volume Laterality 07/06/2014 7:04 AM 5 7:04 MST AM MST Historical Provider LAB BLOOD ADD-ON Performing Organization Address City/State/ZIP Code Phon e Number HX [place]IS[place] CONVERSION Alkaline Phosphatase (07/06/2014 7:04 AM [facility]) P athologist Signature Alkaline 77 45 - 115 HX Phosphatase, S U/L [place]/MAURISIO CONVERSION Specimen Anatomical Collection Method Collection Time Receive d Time (Source) Location / / Volume Laterality 07/06/2014 7:04 AM 5 7:04 MST AM MST Historical Provider LAB BLOOD ADD-ON Performing Organization Address City/State/ZIP Code Phon e Number HX [place]IS[place] CONVERSION Bilirubin, Total (07/06/2014 7:04 AM [facility]) P athologist Signature Bilirubin, 0.6 -<=1.2 HX Total, S mg/dL [place] CONVERSION Specimen Anatomical Collection Method Collection Time Receive d Time (Source) Location / / Volume Laterality 07/06/2014 7:04 AM 5 7:04 MST AM MST Historical Provider LAB BLOOD ADD-ON Performing Organization Address City/[facility]/ZIP Code Phon e Number HX [place] CONVERSION Albumin (07/06/2014 7:04 AM [facility]) P athologist Signature Albumin, S 3.5 3.5 - 5.0 HX g/dL [place] CONVERSION Specimen Anatomical Collection Method Collection Time Receive d Time (Source) Location / / Volume Laterality 07/06/2014 7:04 AM 5 7:04 MST AM MST Historical Provider LAB BLOOD ADD-ON Performing Organization Address City/[facility]/ZIP Code Phon e Number HX [place] CONVERSION (ABNORMAL) Glucose, Random (07/06/2014 7:04 AM [facility]) P athologist Signature Glucose, S 121 (H) 70 - 100 HX mg/dL [place] CONVERSION Specimen Anatomical Collection Method Collection Time Receive d Time (Source) Location / / Volume Laterality 07/06/2014 7:04 AM 5 7:04 MST AM MST Historical Provider LAB BLOOD TROPONIN Performing Organization Address City/State/ZIP Code Phon e Number HX [place] CONVERSION (ABNORMAL) Calcium, Total (07/06/2014 7:04 AM [facility]) P athologist Signature Calcium, 7.9 (L) 8.9 - 10.1 HX Total, S mg/dL [place] A CONVERSION Specimen Anatomical Collection Method Collection Time Receive d Time (Source) Location / / Volume Laterality 07/06/2014 7:04 AM 5 7:04 MST AM [facility] Historical Provider LAB BLOOD ADD-ON Performing Organization Address City/State/ZIP Code Phon e Number HX [place] CONVERSION (ABNORMAL) Creatinine with Estimated GFR (07/06/2014 7:04 AM [facility]) athologist Signature Creatinine 2.6 (H) 0.8 - 1.3 HX mg/dL [place] CONVERSION Specimen Anatomical Collection Method Collection Time Receive d Time (Source) Location / / Volume Laterality 07/06/2014 7:04 AM 5 7:04 MST AM [facility] Historical Provider LAB BLOOD ADD-ON Performing Organization Address City/[facility] Phon e Number HX [place] CONVERSION (ABNORMAL) BUN (Blood Urea Nitrogen) (07/06/2014 7:04 AM [facility]) Analysis Performed At [facility] Time Signature BUN (Blood 36.0 (H) 8.0 - 24.0 HX Urea mg/dL [place] Nitrogen), S A CONVERSION Specimen Anatomical Collection Method Collection Time Receive d Time (Source) Location / / Volume Laterality 07/06/2014 7:04 AM 5 7:04 MST AM [facility] Historical Provider LAB BLOOD ADD-ON Performing Organization Address City/[facility] Phon e Number HX [place] CONVERSION (ABNORMAL) Electrolyte Panel (07/06/2014 7:04 AM [facility]) athologist Signature HCO3, Venous 21 (L) 22 [...] [place] CONVERSION Bilirubin, Direct (07/06/2014 7:04 AM [facility]) P athologist Signature Bilirubin, 0.2 0.0 - 0.3 HX Direct, S mg/dL [place] CONVERSION Specimen Anatomical Collection Method Collection Time Receive d Time (Source) Location / / Volume Laterality 07/06/2014 7:04 AM 5 7:04 MST AM MST Historical Provider LAB BLOOD ADD-ON Performing Organization Address City/State/ZIP Code Phon e Number HX [place] CONVERSION (ABNORMAL) Prothrombin Time, Plasma (07/06/2014 7:04 AM [facility]) [facility] Method Time Signature Prothrombin 15.2 (H) 11.8 [...] [place] CONVERSION GGT (Gamma-Glutamyltransferase) (07/06/2014 7:04 AM [facility]) [facility] [employer] Method Time Signature Gamma 29 12 - 48 HX Glutamyltransferase U/L [place] (GGT), S NA CONVERSION Specimen Anatomical Collection Method Collection Time Receive d Time (Source) Location / / Volume Laterality 07/06/2014 7:04 AM 5 7:04 MST AM MST Historical Provider LAB BLOOD ADD-ON Performing Organization Address City/State/ZIP Code Phon e Number HX [place] CONVERSION LD (Lactate Dehydrogenase) (07/06/2014 7:04 AM [facility]) [facility] Method Time Signature Lactate 154 122 - [...] CBC with Differential, Blood (07/06/2014 7:04 AM [facility]) [facility] Method Time Signature MCV 89.7 80.8 - [...] Volume Laterality 07/06/2014 7:04 AM 5 7:04 [facility] AM [facility] Historical Provider LAB BLOOD ADD-ON Performing Organization Address City/State/ZIP Code Phon e Number HX [place] CONVERSION (ABNORMAL) Estimated Glomerular Filtration Rate (07/06/2014 7:04 AM [facility]) Analysis Performed At [facility] [employer] Time Signature HX Estimated 25.4 (L) mL/min [...] Address City/State/ZIP Code Phon e Number HX [place] CONVERSION DX Chest AP or PA and [...] 05-Jul-2014 15:5 1 Narrative 07/05/2014 3:51 PM [facility] Indications: fever ORIGINAL REPORT - 05-Jul-2014 15:51:00 [...] by: Leonid Interiano M.D. 05-Jul-2014 15:5 1 Sol Cornelius APRN, D.N.P., DOREEN, M.S. YAN DI AGNOSTIC IMAGING PROCEDURES DX Panorex Teeth (07/05/2014 3:42 PM [facility]) Anatomical Region Laterality Modality Skull, Jaw, Neuroradiology RST LOS N/A Radio graphic Imaging Specimen (Source) Anatomical Collection Method Collection Time Re ceived Time Location / / Volume Laterality 07/05/2014 3:42 PM MST Narrative 07/05/2014 3:53 PM [facility] Indications: neutropenic fever with oral ulcer ??Tech: [...] teeth a re unremarkable. Electronically signed by: Cam Adan M.D. 05-Jul-2014 15:53 Sol Cornelius APRN, D.N.P., DOREEN, M.S. DEEG DI AGNOSTIC IMAGING PROCEDURES Culture, Herpes (07/05/2014 3:20 PM MST) Specimen Anatomical Collection Method Collection Time Receive d Time (Source) Location / / Volume Laterality 07/05/2014 3:20 PM 5 3:20 MST PM MST Narrative HX [place] CONVERSION - 07/07/19 11:39 AM MST SOURCE: MOUTH, SWAB ORAL CANKER SORE LEFT ? COLLECTED: 07/05/2014 15:20 ? REC EIVED: 07/05/2014 15:38 CULTURE, HERPES ?FINAL ?07/07/2014 11:39 ??NO HERPES SIMPLEX detected by Enzyme Linked Virus Inducible System ??Culture. Historical Provider LAB MICROBIOLOGY - GENERAL O RDERABLES Performing Organization Address City/State/ZIP Code Phon e Number HX [place] CONVERSION Lilli-Mon Virus PCR, Quant, Blood (07/05/2014 3:01 PM MST) [facility] Method Time Signature Lilli-Mon None None HX Virus PCR, detected detected [place] Quant, B NA CONVERSION Comment: ADDITIONAL INFORMATIO N Analyte Specific Reagent: This test was developed and its performance characteristics determined by [facility]. It has not been cleared or approved by the U.S. Food and Drug Admin istration. Test Performed by: [facility] - [address] [address] Road Conductor: Bonny Frankel pt going to x-ray ??07/05/2014 ??15:29 Specimen Anatomical Collection Method Collection Time Receive d Time (Source) Location / / Volume Laterality 07/05/2014 3:01 PM 5 3:01 MST PM MST Sol Cornelius APRN, D.N.P., DOREEN, M.S. LAB BL OOD ADD-ON Performing Organization Address [facility] Phon e Number HX [place] CONVERSION CMV [...] FAN Ampli Prep/FAN TaqMan CMV Test ([employer] pt going to x-ray ??07/05/2014 ??15:29 Specimen Anatomical Collection Method Collection Time Receive d Time (Source) Location / / Volume Laterality 07/05/2014 3:01 PM 5 3:01 MST PM MST Sol Cornelius APRN, D.N.P., DOREEN, M.S. LAB CA CROBIOLOGY - BLOOD ORDERABLES Performing Organization Address [facility] Phon e Number HX [place] CONVERSION Cocci [...] 3:01 PM 5 3:01 MST PM MST Bashir Pollock APRN.N.P., AGACNP-RADHA, M.S. 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 COMPARISON: None Available FINDINGS: Noncontrast study performed [...] ORIGINAL REPORT - 05-Jul-2014 13:29:00 CT Neck 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 [employer] 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 COMPARISON: None Available FINDINGS: Noncontrast study performed [...] / Anaplasma PCR, Blood (07/05/2014 10:48 AM MST) Analysis Performed At [facility] Time Signature Ehrlichia Negative Negative HX ewingii/canis, [place] PCR A CONVERSION Comment: Test Performed by: [facility] [address] Road Conductor: Bonny Frankel pt going to x-ray ??07/05/2014 ??15:29 Ehrlichia chaffeensis, PCR Negative Negative HX [place] CONVERSION Comment: Test Performed by: [facility] [address] Road Conductor: Bonny Frankel pt going to x-ray ??07/05/2014 ??15:29 Anaplasma phagocytophilum, PCR Negative Negative HX [place] CONVERSION Comment: Test Performed by: [facility] [address] Road Conductor: Bonny Frankel pt going to x-ray ??07/05/2014 ??15:29 Ehrlichia muris eauclairensis, Negative Negative HX [place] CONVERSION PCR Comment: ADDITIONAL INFORMATIO N Laboratory developed test. Test Performed by: [facility] [place] [address] Road Conductor: Bonny Frankel pt going to x-ray ??07/05/2014 ??15:29 Specimen Anatomical Collection Method Collection Time Receive d Time (Source) Location / / Volume Laterality 07/05/2014 10:48 07/05/2014 AM MST 10:48 AM MST Sol Cornelius APRN, D.N.P., DOREEN, M.S. LAB [facility] - BLOOD ORDERABLES Performing Organization Address City/State/ZIP Code Phon e Number HX [place] CONVERSION Ehrlichia Ab Panel (07/05/2014 10:48 AM MST) [facility] Method Time Signature Anaplasma <1:64 -<1:64 HX phagocytophilum Ab, titer [place] IgG,S A CONVERSION Comment: ADDITIONAL INFORMATIO N Analyte Specific Reagent: This test was developed and its performance characteristics determined by [facility] [employer] c. It has not been cleared or approved by the U.S. Food and Drug Admin istration. Test Performed by: [place] [address] Road Conductor: Bonny Frankel pt going to x-ray ??07/05/2014 ??15:29 Ehrlichia Chaffeensis ([facility]) <1:64 -<1:64 titer HX [place] CONVERSION Ab, IgG Comment: ADDITIONAL INFORMATIO N Analyte Specific Reagent: This test was developed and its performance characteristics determined by [facility] [employer] c. It has not been cleared or approved by the U.S. Food and Drug Admin istration. Test Performed by: [place] [address] Road Conductor: Bonny Frankel pt going to x-ray ??07/05/2014 ??15:29 Specimen Anatomical Collection Method Collection Time Receive d Time (Source) Location / / Volume Laterality 07/05/2014 10:48 07/05/2014 AM MST 10:48 AM MST Sol Cornelius APRN, D.N.P., DOREEN, M.S. LAB CA CROBIOLOGY - BLOOD ORDERABLES Performing Organization Address City/[facility] Phon e Number HX [place] CONVERSION (ABNORMAL) Manual Differential, B (07/05/2014 10:48 AM MST) [facility] Method Time Signature Unclassified Cells 0 HX [...] 10:48 AM MST Historical Provider LAB BLOOD ADD-ON Performing Organization Address City/[facility] Phon e Number HX [place] CONVERSION Pathologist Comment (07/05/2014 10:48 AM MST) [facility] [employer] Method Time Signature Technologist PB SeeComment HX Smear Review [place] NA CONVERSION Comment: 3-5-HPF Elliptocytes. Reported by hemato logy technologist. Specimen Anatomical Collection Method Collection Time Receive d Time (Source) Location / / Volume Laterality 07/05/2014 10:48 07/05/2014 AM MST 10:48 AM MST Historical Provider LAB PATHOLOGY/CYTOLOGY ORDER OSMEL Performing Organization Address [facility]/ZIP Code Phon e Number [...] LAB BLOOD NON ADD-ON Performing Organization Address [facility] Phon e Number HX [place] CONVERSION Lactate (07/05/2014 10:48 AM MST) P athologist Signature Lactate, P 1.40 0.60 - 2.30 HX mmol/L [place] CONVERSION Specimen Anatomical Collection Method Collection Time Receive d Time (Source) Location / / Volume Laterality 07/05/2014 10:48 07/05/2014 AM MST 10:48 AM MST Yu Hernandez M.D. LAB BLOOD NON ADD-ON Performing Organization Address [facility] Code Phon e Number HX [place] CONVERSION Lipase (07/05/2014 10:48 AM MST) P athologist Signature Lipase, S 14 7 - 60 U/L HX [place] CONVERSION Specimen Anatomical Collection Method Collection Time Receive d Time (Source) Location / / Volume Laterality 07/05/2014 10:48 07/05/2014 AM MST 10:48 AM MST Yu Hernandez M.D. LAB BLOOD ADD-ON Performing Organization Address [facility] [...] M.D. LAB BLOOD ADD-ON Performing Organization Address [facility] [...] 19 8 - 48 HX Aminotransferase U/L [place] A CONVERSION Specimen Anatomical [...] CONVERSION (ABNORMAL) Electrolyte Panel (07/05/2014 10:48 AM MST) P athologist Signature Anion Gap 16 (H) 7 - 15 HX [place] CONVERSION Sodium, S 132 (L) 135 - 145 HX mmol/L [place] CONVERSION Potassium, S 4.1 3.6 - 5.2 HX mmol/L [place] CONVERSION Chloride, S 97 (L) 98 - 107 HX mmol/L [place] CONVERSION HCO3, Venous 20 (L) 22 - 29 HX mmol/L [place] CONVERSION Specimen Anatomical Collection Method Collection Time Receive d Time (Source) Location / / Volume Laterality 07/05/2014 10:48 07/05/2014 AM MST 10:48 AM MST Yu Hernandez M.D. LAB BLOOD ADD-ON Performing Organization Address City/State/ZIP Code Phon e Number HX [place] CONVERSION (ABNORMAL) CBC with Differential, Blood (07/05/2014 10:48 AM [facility]) Patholo gist Method Time Signature MCV 88.5 [...] Lead with rhythm strip (07/05/2014 12:00 AM [facility]) Specimen (Source) Anatomical Location Collection Method / [...]
--- OUTSIDE RECORDS SUMMARY | 2022-05-17 19:07 | XMS_ITS | Encounter Summary ---
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 [address] [place] [phone] 05/23/2022 Clinical Admitting/Central Communication Scheduling 05/27/2022 Comprehensive Visit Orthopedic Surgery Markus Sams M.D., Ph.D. [address] [place] [phone] 05/29/2022 Office Visit Otorhinolaryngology Dex Matta APRN, C.N.P., M.S.N. [address] [place] [phone] 05/29/2022 Office Visit Otorhinolaryngology Nadeem Mardaiaga, PEdgar.Marie., M.S. [address] [place] [phone] 05/31/2022 Appointment Radiology Guilherme Matt MPAS, PMaryanne., M.S. [address] [place] [phone] 06/05/2022 Appointment Laboratory Medicine Angélica Granger P.A.-C. [address] [place] [phone] 06/19/2022 Appointment Laboratory Medicine Angélica Granger P.A.-C. [address] [place] [phone] 07/03/2022 Appointment Laboratory Medicine Angélica Granger P.A.-C. [address] [place] [phone] 07/17/2022 Appointment Laboratory Medicine Angélica Granger P.A.-C. [address] [place] [phone] 07/31/2022 Appointment Laboratory Medicine Angélica Granger P.A.-C. [address] [place] [phone] 08/14/2022 Appointment Laboratory Medicine Angélica Granger P.A.-C. [address] [place] [phone] 08/28/2022 Appointment Laboratory Medicine Angélica Granger P.A.-C. [address] [place] [phone] documented as of this encounter Visit Diagnoses Not on filedocumented in this encounter Additional Health Concerns Infection Onset Date Last Indicated Resolved Time COVID19 Pending 12/13/2019 12/13/2019 12/14/2019 11:03 AM CDT COVID19 Pending 01/26/2020 01/27/2020 01/28/2020 12:12 AM CDT Assessment Noted Time PHQ-9 Depression Total Score: 4 03/02/2014 10:29 AM CD T documented as of this encounter Care Teams Sports Trainer Relationship Specialty Start Date End Date Elsewhere, Pcp PCP - General Family Medicine 07/29/17 [facility] - Laboratory Medicine 04/12/[address] [phone] documented as of this encounter
--- OUTSIDE RECORDS SUMMARY | 2022-05-17 19:07 | XMS_ITS | Encounter Summary ---
:1955 Author Organization [facility] Address [address] [place] [address] Care Team Providers Name Role Phone Unavailable Primary Care Provider Unavailable Encounter Details Date Type Department Care Team Description 06/01/2014 Hospital Encounter HX RST TXS LIVER Michele Granger, P.A.-C. 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 [address] [place] [phone] 05/23/2022 Clinical Admitting/Central Communication Scheduling 05/27/2022 Comprehensive Visit Orthopedic Surgery Markus Sams M.D., Ph.D. [address] [place] [phone] 05/29/2022 Office Visit Otorhinolaryngology Dex Matta APRN, C.N.P., M.S.N. [address] [place] [phone] 05/29/2022 Office Visit Otorhinolaryngology Nadeem Maradiaga, P.A.-C., M.S. [address] [place] [phone] 05/31/2022 Appointment Radiology Guilherme Matt MPAS, P.A.-C., M.S. [address] [place] [phone] 06/05/2022 Appointment Laboratory Medicine Angélica Granger P.A.-C. [address] [place] [phone] 06/19/2022 Appointment Laboratory Medicine Angélica Granger P.A.-C. [address] [place] [phone] 07/03/2022 Appointment Laboratory Medicine Angélica Granger P.A.-C. [address] [place] [phone] 07/17/2022 Appointment Laboratory Medicine Angélica Granger P.A.-C. [address] [place] [phone] 07/31/2022 Appointment Laboratory Medicine Angélica Granger P.A.-C. [address] [place] [phone] 08/14/2022 Appointment Laboratory Medicine Angélica Granger P.A.-C. [address] [place] [phone] 08/28/2022 Appointment Laboratory Medicine Angélica Granger P.A.-C. [address] [place] [phone] documented as of this encounter Visit Diagnoses Not on filedocumented in this encounter Additional Health Concerns Assessment Noted Time PHQ-9 Depression Total Score: 4 03/02/2014 10:29 AM CD T documented as of this encounter
--- OUTSIDE RECORDS SUMMARY | 2022-05-17 19:07 | XMS_ITS | Encounter Summary ---
:1955 Author Organization [facility] Address [address] [place] [address] Care Team Providers Name Role Phone Unavailable Primary Care Provider Unavailable Encounter Details Date Type Department Care Team Description 07/05/2013 Hospital Encounter HX NO MAPPING Roshan Grace M.S .N., R.N., C.C.T.C. 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 [address] [place] [phone] 05/23/2022 Clinical Admitting/Central Communication Scheduling 05/27/2022 Comprehensive Visit Orthopedic Surgery Markus Sams M.D., Ph.D. [address] [place] [phone] 05/29/2022 Office Visit Otorhinolaryngology Dex Matta, RAMONA, C.N.P., M.S.N. [address] [place] [phone] 05/29/2022 Office Visit Otorhinolaryngology Nadeem Maradiaga, Miri.Marie., M.S. [address] [place] [phone] 05/31/2022 Appointment Radiology Guilherme Matt, RASTA, PAdilia M.SDemetrius [address] [place] [phone] 06/05/2022 Appointment Laboratory Medicine Angélica Granger P.A.-C. [address] [place] [phone] 06/19/2022 Appointment Laboratory Medicine Angélica Granger P.A.-C. [address] [place] [phone] 07/03/2022 Appointment Laboratory Medicine Angélica Granger P.A.-C. [address] [place] [phone] 07/17/2022 Appointment Laboratory Medicine Angélica rGanger P.A.-C. [address] [place] [phone] 07/31/2022 Appointment Laboratory Medicine Angélica Granger P.A.-C. [address] [place] [phone] 08/14/2022 Appointment Laboratory Medicine Angélica Granger P.A.-C. [address] [place] [phone] 08/28/2022 Appointment Laboratory Medicine Angélica Granger P.A.-C. 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
--- OUTSIDE RECORDS SUMMARY | 2022-05-17 19:07 | XMS_ITS | Encounter Summary ---
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 [address] [place] [phone] 05/23/2022 Clinical Admitting/Central Communication Scheduling 05/27/2022 Comprehensive Visit Orthopedic Surgery Markus Sams M.D., Ph.D. [address] [place] [phone] 05/29/2022 Office Visit Otorhinolaryngology Dex Matta APRN, C.N.P., M.S.N. [address] [place] [phone] 05/29/2022 Office Visit Otorhinolaryngology Nadeem Maradiaga, PEdgar.Marie., M.S. [address] [place] [phone] 05/31/2022 Appointment Radiology Guilherme Matt MPAS, PMaryanne., M.S. [address] [place] [phone] 06/05/2022 Appointment Laboratory Medicine Angélica Granger P.A.-C. [address] [place] [phone] 06/19/2022 Appointment Laboratory Medicine Angélica Granger P.A.-C. [address] [place] [phone] 07/03/2022 Appointment Laboratory Medicine Angélica Granger P.A.-C. [address] [place] [phone] 07/17/2022 Appointment Laboratory Medicine Angélica Granger P.A.-C. [address] [place] [phone] 07/31/2022 Appointment Laboratory Medicine Angélica Granger P.A.-C. [address] [place] [phone] 08/14/2022 Appointment Laboratory Medicine Angélica Granger P.A.-C. [address] [place] [phone] 08/28/2022 Appointment Laboratory Medicine Angélica Granger P.A.-C. [address] [place] [phone] documented as of this encounter Visit Diagnoses Not on filedocumented in this encounter Additional Health Concerns Infection Onset Date Last Indicated Resolved Time COVID19 Pending 12/13/2019 12/13/2019 12/14/2019 11:03 AM CDT COVID19 Pending 01/26/2020 01/27/2020 01/28/2020 12:12 AM CDT Assessment Noted Time PHQ-9 Depression Total Score: 1 12/01/2013 10:25 AM CD T documented as of this encounter Care Teams Coil Maker Relationship Specialty Start Date End Date Elsewhere, Pcp PCP - General Family Medicine 07/29/17 [facility] - Laboratory Medicine 04/12/[address] [id number] documented as of this encounter
--- OUTSIDE RECORDS SUMMARY | 2022-05-17 19:08 | XMS_ITS | Encounter Summary ---
:1955 Author Organization [facility] Address [address] [place] [address] Care Team Providers Name Role Phone Unavailable Primary Care Provider Unavailable Encounter Details Date Type Department Care Team Description 06/22/2013 - Hospital Encounter HX RST UNIT 10-2 MilagrosOtoniel 06/28/2013 MELISSA Tubbs M.D. [address] [place] [phone] Social History Tobacco Use Types Packs/Day Years [...] at Date Recorded Male 05/16/2020 4:27 PM FERTILIZER SUPERVISOR documented as of this encounter Last Filed Vital Signs Vital Sign Reading Time Taken Comments Blood Pressure 136/88 06/28/2013 12:10 NIBP - Value fr om PM FERTILIZER SUPERVISOR [employer]. Pulse 77 06/28/2013 12:10 Value from [facility] tplus. PM FERTILIZER SUPERVISOR Temperature - - Respiratory Rate 14 06/28/2013 12:08 Value from [facility] rtplus. PM FERTILIZER SUPERVISOR Oxygen Saturation - - Inhaled Oxygen - - Concentration Weight 71.8 kg (158 lb 4.6 06/28/2013 2:11 AM oz) FERTILIZER SUPERVISOR Height 178 cm (5' 10.08) 06/28/2013 2:11 AM FERTILIZER SUPERVISOR Body Mass Index 22.66 06/28/2013 2:11 AM FERTILIZER SUPERVISOR documented in this encounter Medications at Time [...] Laboratory Medicine Angélica Granger P.A.-C. [address] [place] [phone] 05/23/2022 Clinical Admitting/Central Communication Scheduling 05/27/2022 Comprehensive Visit Orthopedic Surgery Markus Sams M.D., Ph.D. [address] [place] [phone] 05/29/2022 Office Visit Otorhinolaryngology Dex Matta APRN, C.N.P., M.S.N. [address] [place] [phone] 05/29/2022 Office Visit Otorhinolaryngology Nadeem Maradiaga, Edmundo, M.S. [address] [place] [phone] 05/31/2022 Appointment Radiology Guilherme Matt MPAS, P.A.-C., M.S. [address] [place] [phone] 06/05/2022 Appointment Laboratory Medicine Angélica Granger P.A.-C. [address] [place] [phone] 06/19/2022 Appointment Laboratory Medicine Angélica Granger P.A.-C. [address] [place] [phone] 07/03/2022 Appointment Laboratory Medicine Angélica Granger P.A.-C. [address] [place] [phone] 07/17/2022 Appointment Laboratory Medicine Angélica Granger P.A.-C. [address] [place] [phone] 07/31/2022 Appointment Laboratory Medicine Angélica Granger P.A.-C. [address] [place] [phone] 08/14/2022 Appointment Laboratory Medicine Angélica Granger P.A.-C. [address] [place] [phone] 08/28/2022 Appointment Laboratory Medicine EmiliejeriAngélica P.A.-C. [address] [place] [phone] documented as of this encounter Procedures Procedure Name Priority Date/Time Associated Comments Diagnosis GLUCOSE POCT, B Routine 06/28/2013 12:07 Results for this PM FERTILIZER SUPERVISOR procedure are i n the results section. GLUCOSE POCT, B Routine 06/28/2013 6:43 Results f or this AM FERTILIZER SUPERVISOR procedure are i n the results section. GLUCOSE POCT, B Routine 06/27/2013 9:42 Results f or this PM FERTILIZER SUPERVISOR procedure are i n the results section. GLUCOSE POCT, B Routine 06/27/2013 4:52 Results f or this PM FERTILIZER SUPERVISOR procedure are i n the results section. GLUCOSE POCT, B Routine 06/27/2013 11:47 Results for this AM FERTILIZER SUPERVISOR procedure are i n the results section. GLUCOSE POCT, B Routine 06/27/2013 5:30 Results f or this AM FERTILIZER SUPERVISOR procedure are i n the results section. ELECTROLYTE (CHEM 4) Routine 06/27/2013 5:28 Resu lts for this PANEL, S/P AM FERTILIZER SUPERVISOR procedure are i n the results section. TACROLIMUS LEVEL, B Routine 06/27/2013 5:28 Resul ts for this AM FERTILIZER SUPERVISOR procedure are i n the results section. GLUCOSE POCT, B Routine 06/26/2013 9:36 Results f or this PM FERTILIZER SUPERVISOR procedure are i n the results section. GLUCOSE POCT, B Routine 06/26/2013 5:22 Results f or this PM FERTILIZER SUPERVISOR procedure are i n the results section. GLUCOSE POCT, B Routine 06/26/2013 12:57 Results for this PM FERTILIZER SUPERVISOR procedure are i n the results section. GLUCOSE POCT, B Routine 06/26/2013 8:14 Results f or this AM FERTILIZER SUPERVISOR procedure are i n the results section. ELECTROLYTE (CHEM 4) Routine 06/26/2013 5:21 Resu lts for this PANEL, S/P AM FERTILIZER SUPERVISOR procedure are i n the results section. CBC NO CALL BACK, REFLEX Routine 06/26/2013 5:21 Results for this T/S AM FERTILIZER SUPERVISOR procedure are i n the results section. TACROLIMUS LEVEL, B Routine 06/26/2013 5:21 Resul ts for this AM FERTILIZER SUPERVISOR procedure are i n the results section. PROTHROMBIN TIME (PT), P Routine 06/26/2013 5:21 Results for this AM FERTILIZER SUPERVISOR procedure are i n the results section. BILIRUBIN, S Routine 06/26/2013 5:21 Results for this AM FERTILIZER SUPERVISOR procedure are i n the results section. ALANINE AMINOTRANSFERASE Routine 06/26/2013 5:21 Results for this (ALT), S/P AM FERTILIZER SUPERVISOR procedure are i n the results section. ASPARTATE Routine 06/26/2013 5:21 Results for this AMINOTRANSFERASE (AST), AM FERTILIZER SUPERVISOR proc edure are in S/P the results section. ALKALINE PHOSPHATASE, Routine 06/26/2013 5:21 Res ults for this S/P AM FERTILIZER SUPERVISOR procedure are i n the results section. MAGNESIUM, S Routine 06/26/2013 5:21 Results for this AM FERTILIZER SUPERVISOR procedure are i n the results section. CALCIUM, TOT, S/P Routine 06/26/2013 5:21 Results for this AM FERTILIZER SUPERVISOR procedure are i n the results section. GLUCOSE POCT, B Routine 06/25/2013 9:43 Results f or this PM FERTILIZER SUPERVISOR procedure are i n the results section. POTASSIUM, S/P Routine 06/25/2013 7:45 Results fo r this PM FERTILIZER SUPERVISOR procedure are i n the results section. GLUCOSE POCT, B Routine 06/25/2013 5:53 Results f or this PM FERTILIZER SUPERVISOR procedure are i n the results section. GLUCOSE POCT, B Routine 06/25/2013 1:55 Results f or this PM FERTILIZER SUPERVISOR procedure are i n the results section. GLUCOSE POCT, B Routine 06/25/2013 8:25 Results f or this AM FERTILIZER SUPERVISOR procedure are i n the results section. GLUCOSE POCT, B Routine 06/25/2013 5:26 Results f or this AM FERTILIZER SUPERVISOR procedure are i n the results section. ELECTROLYTE (CHEM 4) Routine 06/25/2013 5:16 Resu lts for this PANEL, S/P AM FERTILIZER SUPERVISOR procedure are i n the results section. CBC NO CALL BACK, REFLEX Routine 06/25/2013 5:16 Results for this T/S AM FERTILIZER SUPERVISOR procedure are i n the results section. TACROLIMUS LEVEL, B Routine 06/25/2013 5:16 Resul ts for this AM FERTILIZER SUPERVISOR procedure are i n the results section. PROTHROMBIN TIME (PT), P Routine 06/25/2013 5:16 Results for this AM FERTILIZER SUPERVISOR procedure are i n the results section. BILIRUBIN, S Routine 06/25/2013 5:16 Results for this AM FERTILIZER SUPERVISOR procedure are i n the results section. ALANINE AMINOTRANSFERASE Routine 06/25/2013 5:16 Results for this (ALT), S/P AM FERTILIZER SUPERVISOR procedure are i n the results section. ASPARTATE Routine 06/25/2013 5:16 Results for this AMINOTRANSFERASE (AST), AM FERTILIZER SUPERVISOR proc edure are in S/P the results section. ALKALINE PHOSPHATASE, Routine 06/25/2013 5:16 Res ults for this S/P AM FERTILIZER SUPERVISOR procedure are i n the results section. MAGNESIUM, S Routine 06/25/2013 5:16 Results for this AM FERTILIZER SUPERVISOR procedure are i n the results section. CALCIUM, TOT, S/P Routine 06/25/2013 5:16 Results for this AM FERTILIZER SUPERVISOR procedure are i n the results section. ALBUMIN, S/P Routine 06/25/2013 5:16 Results for this AM FERTILIZER SUPERVISOR procedure are i n the results section. GLUCOSE POCT, B Routine 06/24/2013 10:03 Results for this PM FERTILIZER SUPERVISOR procedure are i n the results section. GLUCOSE POCT, B Routine 06/24/2013 6:21 Results f or this PM FERTILIZER SUPERVISOR procedure are i n the results section. GLUCOSE POCT, B Routine 06/24/2013 11:07 Results for this AM FERTILIZER SUPERVISOR procedure are i n the results section. GLUCOSE POCT, B Routine 06/24/2013 6:30 Results f or this AM FERTILIZER SUPERVISOR procedure are i n the results section. GLUCOSE POCT, B Routine 06/23/2013 10:12 Results for this PM FERTILIZER SUPERVISOR procedure are i n the results section. GLUCOSE POCT, B Routine 06/23/2013 5:11 Results f or this PM FERTILIZER SUPERVISOR procedure are i n the results section. GLUCOSE POCT, B Routine 06/23/2013 11:31 Results for this AM FERTILIZER SUPERVISOR procedure are i n the results section. GLUCOSE POCT, B Routine 06/23/2013 6:10 Results f or this AM FERTILIZER SUPERVISOR procedure are i n the results section. ELECTROLYTE (CHEM 4) Routine 06/23/2013 5:24 Resu lts for this PANEL, S/P AM FERTILIZER SUPERVISOR procedure are i n the results section. TACROLIMUS LEVEL, B Routine 06/23/2013 5:24 Resul ts for this AM FERTILIZER SUPERVISOR procedure are i n the results section. PROTHROMBIN TIME (PT), P Routine 06/23/2013 5:24 Results for this AM FERTILIZER SUPERVISOR procedure are i n the results section. CBC WITHOUT Routine 06/23/2013 5:24 Results for this DIFFERENTIAL, B AM FERTILIZER SUPERVISOR procedure ar e in the results section. ALANINE AMINOTRANSFERASE Routine 06/23/2013 5:24 Results for this (ALT), S/P AM FERTILIZER SUPERVISOR procedure are i n the results section. ASPARTATE Routine 06/23/2013 5:24 Results for this AMINOTRANSFERASE (AST), AM FERTILIZER SUPERVISOR proc edure are in S/P the results section. PHOSPHORUS (INORGANIC), Routine 06/23/2013 5:24 R esults for this S AM FERTILIZER SUPERVISOR procedure are i n the results section. ALKALINE PHOSPHATASE, Routine 06/23/2013 5:24 Res ults for this S/P AM FERTILIZER SUPERVISOR procedure are i n the results section. MAGNESIUM, S Routine 06/23/2013 5:24 Results for this AM FERTILIZER SUPERVISOR procedure are i n the results section. BILIRUBIN DIRECT, S/P Routine 06/23/2013 5:24 Res ults for this AM FERTILIZER SUPERVISOR procedure are i n the results section. BILIRUBIN, TOT, S/P Routine 06/23/2013 5:24 Resul ts for this AM FERTILIZER SUPERVISOR procedure are i n the results section. ALBUMIN, S/P Routine 06/23/2013 5:24 Results for this AM FERTILIZER SUPERVISOR procedure are i n the results section. GLUCOSE POCT, B Routine 06/23/2013 1:54 Results f or this AM FERTILIZER SUPERVISOR procedure are i n the results section. GLUCOSE POCT, B Routine 06/22/2013 10:32 Results for this PM F[employer]ILIZER SUPERVISOR procedure are i n the results section. HX MICROBIOLOGY REPORTS Routine 06/22/2013 10:04 Results for this PM FERTILIZER SUPERVISOR procedure are i n the results section. MICROSCOPIC MANUAL Routine 06/22/2013 10:04 Resul ts for this PM FERTILIZER SUPERVISOR procedure are i n the results section. KETONES,QL(U) Routine 06/22/2013 10:04 Results fo r this PM FERTILIZER SUPERVISOR procedure are i n the results section. GRAM'S ST, U Routine 06/22/2013 10:04 Results for this PM FERTILIZER SUPERVISOR procedure are i n the results section. URINALYSIS WITH Routine 06/22/2013 10:04 Results for this MICROSCOPIC PM FERTILIZER SUPERVISOR procedure are i n the results section. HX MICROBIOLOGY REPORTS Routine 06/22/2013 7:13 R esults for this PM FERTILIZER SUPERVISOR procedure are i n the results section. HX MICROBIOLOGY REPORTS Routine 06/22/2013 7:02 R esults for this PM FERTILIZER SUPERVISOR procedure are i n the results section. AMMONIA Routine 06/22/2013 7:02 Results for this PM FERTILIZER SUPERVISOR procedure are i n the results section. HXGENERAL PATHOLOGY Routine 06/14/2013 9:16 Resul ts for this REPORT AM FERTILIZER SUPERVISOR procedure are i n the results section. documented in this encounter Results (ABNORMAL) Glucose, POCT (06/28/2013 12:07 PM FERTILIZER SUPERVISOR) [facility] gist Method Time Signature Glucose, 192 (H) 70 - 140 [facility] POCT, B MG/DL LABORATORIES - [facility] Sample Site, Capillary [facility] Blood Gas, LABORATORIES - POCT [facility] Last Intake 2-3 hours [facility]IES - [facility] Specimen Anatomical Collection Method Collection Time Receive d Time (Source) Location / / Volume Laterality 06/28/2013 12:07 06/28/2013 PM FERTILIZER SUPERVISOR 12:07 PM FERTILIZER SUPERVISOR Historical Provider LAB POCT ORDERABLES-MANUAL Performing Organization Address City/[facility]/ZIP Code Phon e Number [facility] LABORATORIES - [address] [place], [place] [address] [facility] Glucose, POCT (06/28/2013 6:43 AM FERTILIZER SUPERVISOR) [facility] Method Time Signature Last Intake 1-2 hours [facility]ATORIES - [facility] Glucose, 100 70 - 140 [facility] POCT, B MG/DL LAB[facility]IES - [facility] Sample Site, Capillary [facility] Blood Gas, LABORATORIES - POCT [facility] Specimen Anatomical Collection Method Collection Time Receive d Time (Source) Location / / Volume Laterality 06/28/2013 6:43 AM 4 6:43 FERTILIZER SUPERVISOR AM FERTILIZER SUPERVISOR Historical Provider LAB POCT ORDERABLES-MANUAL Performing Organization Address City/State/[facility] Phon e Number [facility] LABORATORIES - [address] [place], [place] [address] [facility] Glucose, POCT (06/27/2013 9:42 PM FERTILIZER SUPERVISOR) [facility] Method Time Signature Glucose, 108 70 - 140 [facility] POCT, B MG/DL [facility] - [facility] Sample Site, Capillary [facility] Blood Gas, LABORATORIES - POCT [facility] Specimen Anatomical Collection Method Collection Time Receive d Time (Source) Location / / Volume Laterality 06/27/2013 9:42 PM 4 9:42 FERTILIZER SUPERVISOR PM FERTILIZER SUPERVISOR Historical Provider LAB POCT ORDERABLES-MANUAL Performing Organization Address City/[facility]/ZIP Code Phon e Number [facility] LABORATORIES - [address] [place], [place] [address] [facility] (ABNORMAL) Glucose, POCT (06/27/2013 4:52 PM FERTILIZER SUPERVISOR) [facility] Method Time Signature Last Intake 1-2 hours [facility] Glucose, 381 (H) 70 - 140 [facility] POCT, B MG/DL [facility] - [facility] Sample Site, Capillary [facility] Blood Gas, LABORATORIES - POCT [facility] Specimen Anatomical Collection Method Collection Time Receive d Time (Source) Location / / Volume Laterality 06/27/2013 4:52 PM 4 4:52 FERTILIZER SUPERVISOR PM FERTILIZER SUPERVISOR Historical Provider LAB POCT ORDERABLES-MANUAL Performing Organization Address City/[facility]/ZIP Code Phon e Number [facility] LABORATORIES - [address] [place], [place] [address] [facility] Glucose, POCT (06/27/2013 11:47 AM FERTILIZER SUPERVISOR) [facility] Method Time Signature Glucose, 136 70 - 140 [facility] POCT, B MG/DL [facility] - [facility] Sample Site, Capillary [facility] Blood Gas, LABORATORIES - POCT [facility] Last Intake > 4 hours [facility] Specimen Anatomical Collection Method Collection Time Receive d Time (Source) Location / / Volume Laterality 06/27/2013 11:47 06/27/2013 AM FERTILIZER SUPERVISOR 11:47 AM FERTILIZER SUPERVISOR Historical Provider LAB POCT ORDERABLES-MANUAL Performing Organization Address City/[facility] Phon e Number [facility] LABORATORIES - [address] [place], [place] [address] [facility] (ABNORMAL) Glucose, POCT (06/27/2013 5:30 AM FERTILIZER SUPERVISOR) [facility] gist Method Time Signature Glucose, 199 (H) 70 - 140 [facility] POCT, B MG/DL [facility] - [facility] Sample Site, Capillary [facility] Blood Gas, LABORATORIES - POCT [facility] Last Intake 3-4 hours [facility] Specimen Anatomical Collection Method Collection Time Receive d Time (Source) Location / / Volume Laterality 06/27/2013 5:30 AM 4 5:30 FERTILIZER SUPERVISOR AM FERTILIZER SUPERVISOR Historical Provider LAB POCT ORDERABLES-MANUAL Performing Organization Address City/[facility]/ZIP Code Phon e Number [facility] LABORATORIES - [address] [place] [phone] [facility] Tacrolimus Level (06/27/2013 5:28 AM FERTILIZER SUPERVISOR) Analysis Performed At Patho logist Time Signature Tacrolimus, B 5.2 5.0-15.0 [facility] (Trough) LABORATORIES - NG/ML [facility] Tacrolimus . [facility] Blood Date of LABORATORIES - Last Dose [facility] Comment: Not Specified Tacrolimus Time of Last Dose . M [facility] LAB[facility]ATORIES - [facility] Comment: Not Specified Tacrolimus Blood Dose, mg . MG [facility] LABORATORIES - [facility] Comment: Not Specified Specimen Anatomical Collection Method Collection Time Receive d Time (Source) Location / / Volume Laterality 06/27/2013 5:28 AM 4 5:28 FERTILIZER SUPERVISOR AM FERTILIZER SUPERVISOR Joselyn Fay M.D. LAB BLOOD NON ADD-ON Performing Organization Address City/[facility]/ZIP Code Phon e Number [facility] LABORATORIES - [address] [place], [place] [address] [facility] (ABNORMAL) Electrolyte (Chem 4) Panel (06/27/2013 5:28 AM FERTILIZER SUPERVISOR) Patholo gist Method Time Signature Sodium, S 134 (L) 135 - 145 [facility] MMOL/L [facility] - [facility] Potassium, S 5.0 3.6 - 5.2 [facility] MMOL/L [facility] - [facility] Creatinine 1.4 (H) 0.8 - 1.3 [facility] MG/DL [facility] - [facility] eGFR 52 (L) >60 [facility] Non-Black/Afric ML/MIN/BS LABORATORIES - an Russian A [facility] eGFR-Black/Afri >60 >60 [facility] can Russian ML/MIN/BS LABORATORIES - A [facility] BUN (Blood Urea 27 (H) 8 - 24 [facility] Nitrogen), S MG/DL [facility] - [facility] Anion Gap 9 7 - 15 [facility] - [facility] Glucose, S 212 (H) 70 - 140 [facility] MG/DL [facility] - [facility] Chloride, S 102 100 - 108 [facility] MMOL/L LAB[facility]IES - [facility] HX Bicarbonate, 23 22 - 29 [facility] P/S MMOL/L LAB[facility]ATORIES - [facility] Specimen Anatomical Collection Method Collection Time Receive d Time (Source) Location / / Volume Laterality 06/27/2013 5:28 AM 4 5:28 FERTILIZER SUPERVISOR AM FERTILIZER SUPERVISOR Joselyn Fay M.D. LAB BLOOD ADD-ON Performing Organization Address City/[facility] Code Phon e Number [facility] LABORATORIES - [address] [place], [place] [address] [facility] Glucose, POCT (06/26/2013 9:36 PM FERTILIZER SUPERVISOR) P athologist Signature Glucose, POCT, 125 70 - 140 [facility] B MG/DL [facility] - [facility] Specimen Anatomical Collection Method Collection Time Receive d Time (Source) Location / / Volume Laterality 06/26/2013 9:36 PM 4 9:36 FERTILIZER SUPERVISOR PM FERTILIZER SUPERVISOR Historical Provider LAB POCT ORDERABLES-MANUAL Performing Organization Address City/[facility] Phon e Number [facility] LABORATORIES - [address] [place] [phone] [facility] (ABNORMAL) Glucose, POCT (06/26/2013 5:22 PM FERTILIZER SUPERVISOR) Patholo gist Method Time Signature Glucose, 252 (H) 70 - 140 [facility] POCT, B MG/DL [facility] - [facility] Sample Site, Capillary [facility] Blood Gas, LABORATORIES - POCT [facility] Last Intake 3-4 hours [facility] - [facility] Specimen Anatomical Collection Method Collection Time Receive d Time (Source) Location / / Volume Laterality 06/26/2013 5:22 PM 4 5:22 FERTILIZER SUPERVISOR PM FERTILIZER SUPERVISOR Historical Provider LAB POCT ORDERABLES-MANUAL Performing Organization Address City/[facility] Phon e Number [facility] LABORATORIES - [address] [place] [phone] [facility] (ABNORMAL) Glucose, POCT (06/26/2013 12:57 PM FERTILIZER SUPERVISOR) Patholo gist Method Time Signature Glucose, 171 (H) 70 - 140 [facility] POCT, B MG/DL LAB[facility]IES - [facility] Sample Site, Capillary [facility] Blood Gas, LABORATORIES - POCT [facility] Last Intake 3-4 hours [facility] Specimen Anatomical Collection Method Collection Time Receive d Time (Source) Location / / Volume Laterality 06/26/2013 12:57 06/26/2013 PM FERTILIZER SUPERVISOR 12:57 PM FERTILIZER SUPERVISOR Historical Provider LAB POCT ORDERABLES-MANUAL Performing Organization Address City/[facility]/ZIP [facility] Phon e Number [facility] LABORATORIES - [address] [place], [place] [address] [facility] (ABNORMAL) Glucose, POCT (06/26/2013 8:14 AM FERTILIZER SUPERVISOR) [facility] Method Time Signature Glucose, 179 (H) 70 - 140 [facility] POCT, B MG/DL LAB[facility]IES - [facility] Sample Site, Capillary [facility] Blood Gas, LABORATORIES - POCT [facility] Last Intake 3-4 hours [facility] LAB[facility]ATORIES - [facility] Specimen Anatomical Collection Method Collection Time Receive d Time (Source) Location / / Volume Laterality 06/26/2013 8:14 AM 8:14 FERTILIZER SUPERVISOR AM FERTILIZER SUPERVISOR Historical Provider LAB POCT ORDERABLES-MANUAL Performing Organization Address City/[facility]/ZIP Code Phon e Number [facility] LABORATORIES - [address] [place], [place] [address] [facility] (ABNORMAL) Bilirubin (06/26/2013 5:21 AM FERTILIZER SUPERVISOR) [facility] Method Time Signature Bilirubin, 2.1 (H) 0.1 - 1.0 [facility] Total, S MG/DL [facility] - [facility] Bilirubin, 1.3 (H) 0.0 - 0.3 [facility] Direct, S MG/DL [facility] - [facility] Specimen Anatomical Collection Method Collection Time Receive d Time (Source) Location / / Volume Laterality 06/26/2013 5:21 AM 5:21 FERTILIZER SUPERVISOR AM FERTILIZER SUPERVISOR Tracy Marie M.D. LAB BLOOD ADD-ON Performing Organization Address City/[facility]/ZIP Code Phon e Number [facility] LABORATORIES - [address] [place] [phone] [facility] (ABNORMAL) CBC with Differential - No Alerts (06/26/2013 5:21 AM FERTILIZER SUPERVISOR) [facility] Method Time Signature Hemoglobin 9.0 (L) 13.5 - [facility] 17.5 G/DL [facility] HOSPITAL Hematocrit 25.7 (L) 38.8 - [facility] 50.0 % LABORATORIES - [facility] Leukocytes 6.4 3.5 - [facility] 10.5 LABORATORIES - X10(9)/L [facility] Neutrophils 4.31 1.70 - [facility] 7.00 LABORATORIES - X10(9)/L [facility] Erythrocytes 2.75 (L) 4.32 - [facility] 5.72 LABORATORIES - X10(12)/L [facility] MCV 93.5 81.2 - [facility] 95.1 FL LABORATORIES - [facility] RBC Distrib 17.8 (H) 11.8 - [facility] Width 15.6 % LABORATORIES - [facility] Platelet Count 221 150 - 450 [facility] X10(9)/L LABORATORIES - [facility] Lymphocytes 1.29 0.90 - [facility] 2.90 LABORATORIES - X10(9)/L [facility] Monocytes 0.71 0.30 - [facility] 0.90 LABORATORIES - X10(9)/L [facility] Eosinophils 0.11 0.05 - [facility] 0.50 LABORATORIES - X10(9)/L [facility] Basophils 0.02 0.00 - [facility] 0.30 LABORATORIES - X10(9)/L [facility] Specimen Anatomical Collection Method Collection Time Receive d Time (Source) Location / / Volume Laterality 06/26/2013 5:21 AM 4 5:21 FERTILIZER SUPERVISOR AM FERTILIZER SUPERVISOR Tracy Marie M.D. LAB BLOOD NON ADD-ON Performing Organization Address City/State/ZIP Code Phon e Number [facility] LABORATORIES - [address] [place] [phone] [facility] (ABNORMAL) Calcium, Total (06/26/2013 5:21 AM FERTILIZER SUPERVISOR) [facility] gist Method Time Signature Calcium, 7.8 (L) 8.9 - 10.1 [facility] Total, S MG/DL LABORATORIES - [facility] Specimen Anatomical Collection Method Collection Time Receive d Time (Source) Location / / Volume Laterality 06/26/2013 5:21 AM 4 5:21 FERTILIZER SUPERVISOR AM FERTILIZER SUPERVISOR Tracy Marie M.D. LAB BLOOD ADD-ON Performing Organization Address City/[facility] Code Phon e Number [facility] LABORATORIES - [address] [place] [phone] [facility] (ABNORMAL) Tacrolimus Level (06/26/2013 5:21 AM FERTILIZER SUPERVISOR) [facility] Method Time Signature Tacrolimus, B 4.9 (L) 5.0-15.0 [facility] (Trough) LABORATORIES - NG/ML [facility] Tacrolimus . [facility] Blood Date of LABORATORIES - Last Dose [facility] Comment: Not Specified Tacrolimus Time of Last Dose . M [facility] LABORATORIES - [facility] Comment: Not Specified Tacrolimus Blood Dose, mg . MG [facility] - [facility] Comment: Not Specified Specimen Anatomical Collection Method Collection Time Receive d Time (Source) Location / / Volume Laterality 06/26/2013 5:21 AM 4 5:21 FERTILIZER SUPERVISOR AM FERTILIZER SUPERVISOR Tracy Marie M.D. LAB BLOOD NON ADD-ON Performing Organization Address City/[facility]/ZIP [facility] Phon e Number [facility] LABORATORIES - [address] [place] [phone] 05 [facility] Alkaline Phosphatase (06/26/2013 5:21 AM FERTILIZER SUPERVISOR) P athologist Signature Alkaline 111 45 - 115 [facility] Phosphatase, S U/L LABORATORIES - [facility] Specimen Anatomical Collection Method Collection Time Receive d Time (Source) Location / / Volume Laterality 06/26/2013 5:21 AM 4 5:21 FERTILIZER SUPERVISOR AM FERTILIZER SUPERVISOR Tracy Marie M.D. LAB BLOOD ADD-ON Performing Organization Address City/[facility] Phon e Number [facility] LABORATORIES - [address] [place] [address] [facility] AST (Aspartate Aminotransferase) (06/26/2013 5:21 AM FERTILIZER SUPERVISOR) P athologist Signature AST, Total, S 14 8 - 48 U/L [facility] Specimen Anatomical Collection Method Collection Time Receive d Time (Source) Location / / Volume Laterality 06/26/2013 5:21 AM 4 5:21 FERTILIZER SUPERVISOR AM FERTILIZER SUPERVISOR Tracy Marie M.D. LAB BLOOD ADD-ON Performing Organization Address City/[facility] Phon e Number [facility] LABORATORIES - [address] [phone] 05 [facility] ALT (Alanine Aminotransferase) (06/26/2013 5:21 AM FERTILIZER SUPERVISOR) Patholo gist Method Time Signature Alanine 39 7 - 55 [facility] Aminotransferase U/L LABORATORIES - (ALT), S [facility] Specimen Anatomical Collection Method Collection Time Receive d Time (Source) Location / / Volume Laterality 06/26/2013 5:21 AM 4 5:21 FERTILIZER SUPERVISOR AM FERTILIZER SUPERVISOR Tracy Marie M.D. LAB BLOOD ADD-ON Performing Organization Address City/State/ZIP Code Phon e Number [facility] LABORATORIES - [address] [place] [address] 05 [facility] Magnesium (06/26/2013 5:21 AM FERTILIZER SUPERVISOR) P athologist Signature Magnesium, S 1.7 1.7 - 2.3 [facility] MG/DL LABORATORIES - [facility] Specimen Anatomical Collection Method Collection Time Receive d Time (Source) Location / / Volume Laterality 06/26/2013 5:21 AM 4 5:21 FERTILIZER SUPERVISOR AM FERTILIZER SUPERVISOR Tracy Marie M.D. LAB BLOOD ADD-ON Performing Organization Address City/State/ZIP Code Phon e Number [facility] LABORATORIES - [address] [place] [phone] [facility] PT (Prothrombin Time) with INR (06/26/2013 5:21 AM FERTILIZER SUPERVISOR) [facility] Method Time Signature Prothrombin 12.0 9.5 - 13.8 [facility] Time, P SEC LABORATORIES - [facility] INR 1.0 0.8 - 1.2 [facility] LABORATORIES - [facility] Specimen Anatomical Collection Method Collection Time Receive d Time (Source) Location / / Volume Laterality 06/26/2013 5:21 AM 4 5:21 FERTILIZER SUPERVISOR AM FERTILIZER SUPERVISOR Tracy Marie M.D. LAB BLOOD ADD-ON Performing Organization Address City/[facility]/ZIP Code Phon e Number [facility] LABORATORIES - [address] [phone] [facility] (ABNORMAL) Electrolyte (Chem 4) Panel (06/26/2013 5:21 AM FERTILIZER SUPERVISOR) [facility] Method Time Signature Sodium, S 134 (L) 135 - 145 [facility] MMOL/L LABORATORIES - [facility] Potassium, S 5.3 (H) 3.6 - 5.2 [facility] MMOL/L LABORATORIES - [facility] Creatinine 1.4 (H) 0.8 - 1.3 [facility] MG/DL LABORATORIES - [facility] eGFR 52 (L) >60 [facility] Non-Black/Afric ML/MIN/BS LABORATORIES - Russian A [facility] eGFR-Black/Afri >60 >60 [facility] can Russian ML/MIN/BS LABORATORIES - A [facility] BUN (Blood Urea 24 8 - 24 [facility] Nitrogen), S MG/DL LABORATORIES - [facility] Anion Gap 9 7 - 15 [facility] LABORATORIES - [facility] Glucose, S 209 (H) 70 - 140 [facility] MG/DL LABORATORIES - [facility] Chloride, S 102 100 - 108 [facility] MMOL/L LABORATORIES - [facility] HX Bicarbonate, 23 22 - 29 [facility] P/S MMOL/L LABORATORIES - [facility] Specimen Anatomical Collection Method Collection Time Receive d Time (Source) Location / / Volume Laterality 06/26/2013 5:21 AM 4 5:21 FERTILIZER SUPERVISOR AM FERTILIZER SUPERVISOR Tracy Marie M.D. LAB BLOOD ADD-ON Performing Organization Address City/[facility] Phon e Number [facility] LABORATORIES - [address] [place] [phone] [facility] Glucose, POCT (06/25/2013 9:43 PM FERTILIZER SUPERVISOR) [facility] Method Time Signature Glucose, 78 70 - 140 [facility] POCT, B MG/DL LABORATORIES - [facility] Sample Site, Capillary [facility] Blood Gas, LABORATORIES - POCT [facility] Last Intake 3-4 hours [facility] Specimen Anatomical Collection Method Collection Time Receive d Time (Source) Location / / Volume Laterality 06/25/2013 9:43 PM 4 9:43 FERTILIZER SUPERVISOR PM FERTILIZER SUPERVISOR Historical Provider LAB POCT ORDERABLES-MANUAL Performing Organization Address City/[facility] Code Phon e Number [facility] LABORATORIES - [address] [phone] [facility] Potassium (06/25/2013 7:45 PM FERTILIZER SUPERVISOR) P athologist Signature Potassium, S 5.2 3.6 - 5.2 [facility] MMOL/L LABORATORIES - [facility] Specimen Anatomical Collection Method Collection Time Receive d Time (Source) Location / / Volume Laterality 06/25/2013 7:45 PM 4 7:45 FERTILIZER SUPERVISOR PM FERTILIZER SUPERVISOR Historical Provider LAB BLOOD ADD-ON Performing Organization Address City/[facility] Code Phon e Number [facility] LABORATORIES - [address] [place] [phone] [facility] (ABNORMAL) Glucose, POCT (06/25/2013 5:53 PM FERTILIZER SUPERVISOR) [facility] gist Method Time Signature Last Intake 3-4 hours [facility] Glucose, 291 (H) 70 - 140 [facility] POCT, B MG/DL LABORATORIES - [facility] Sample Site, Capillary [facility] Blood Gas, LABORATORIES - POCT [facility] Specimen Anatomical Collection Method Collection Time Receive d Time (Source) Location / / Volume Laterality 06/25/2013 5:53 PM 4 5:53 FERTILIZER SUPERVISOR PM FERTILIZER SUPERVISOR Historical Provider LAB POCT ORDERABLES-MANUAL Performing Organization Address City/[facility]/ZIP Code Phon e Number [facility] LABORATORIES - [address] [place], [place] [address] [facility] (ABNORMAL) Glucose, POCT (06/25/2013 1:55 PM FERTILIZER SUPERVISOR) [facility] Method Time Signature Glucose, 168 (H) 70 - 140 [facility] POCT, B MG/DL LABORATORIES - [facility] Sample Site, Capillary [facility] Blood Gas, LABORATORIES - POCT [facility] Last Intake 3-4 hours [facility] Specimen Anatomical Collection Method Collection Time Receive d Time (Source) Location / / Volume Laterality 06/25/2013 1:55 PM 4 1:55 FERTILIZER SUPERVISOR PM FERTILIZER SUPERVISOR Historical Provider LAB POCT ORDERABLES-MANUAL Performing Organization Address City/[facility]/ZIP Code Phon e Number [facility] LABORATORIES - [address] [place], [place] [address] [facility] (ABNORMAL) Glucose, POCT (06/25/2013 8:25 AM FERTILIZER SUPERVISOR) [facility] Method Time Signature Glucose, 148 (H) 70 - 140 [facility] POCT, B MG/DL [facility] - [facility] Sample Site, Capillary [facility] Blood Gas, LABORATORIES - POCT [facility] Last Intake 3-4 hours [facility] Specimen Anatomical Collection Method Collection Time Receive d Time (Source) Location / / Volume Laterality 06/25/2013 8:25 AM 4 8:25 FERTILIZER SUPERVISOR AM FERTILIZER SUPERVISOR Historical Provider LAB POCT ORDERABLES-MANUAL Performing Organization Address City/State/[facility] Code Phon e Number [facility] LABORATORIES - [address] [place], [place] [address] [facility] (ABNORMAL) Glucose, POCT (06/25/2013 5:26 AM FERTILIZER SUPERVISOR) [facility] Method Time Signature Glucose, POCT, 210 (H) 70 - 140 [facility] B MG/DL [facility] Last Intake 2-3 hours [facility] - [facility] Specimen Anatomical Collection Method Collection Time Receive d Time (Source) Location / / Volume Laterality 06/25/2013 5:26 AM 4 5:26 FERTILIZER SUPERVISOR AM FERTILIZER SUPERVISOR Historical Provider LAB POCT ORDERABLES-MANUAL Performing Organization Address City/[facility] Phon e Number [facility] LABORATORIES - [address] [phone] [facility] ALT (Alanine Aminotransferase) (06/25/2013 5:16 AM FERTILIZER SUPERVISOR) [facility] Method Time Signature Alanine 45 7 - 55 [facility] Aminotransferase U/L LABORATORIES - (ALT), S [facility] Specimen Anatomical Collection Method Collection Time Receive d Time (Source) Location / / Volume Laterality 06/25/2013 5:16 AM 4 5:16 FERTILIZER SUPERVISOR AM FERTILIZER SUPERVISOR Janette Ho APRNN.Evan., M.S.N., R.N. LAB BLOOD ADD-ON Performing Organization Address City/[facility] Phon e Number [facility] LABORATORIES - [address] [place] [phone] [facility] (ABNORMAL) Alkaline Phosphatase (06/25/2013 5:16 AM FERTILIZER SUPERVISOR) [facility] Method Time Signature Alkaline 127 (H) 45 - 115 [facility] Phosphatase, S U/L LABORATORIES - [facility] Specimen Anatomical Collection Method Collection Time Receive d Time (Source) Location / / Volume Laterality 06/25/2013 5:16 AM 4 5:16 FERTILIZER SUPERVISOR AM FERTILIZER SUPERVISOR Janette Ho APRNN.Evan., M.S.N., R.N. LAB BLOOD ADD-ON Performing Organization Address City/[facility] Phon e Number [facility] LABORATORIES - [address] [phone] [facility] (ABNORMAL) CBC with Differential - No Alerts (06/25/2013 5:16 AM FERTILIZER SUPERVISOR) [facility] Method Time Signature Erythrocytes 2.82 (L) 4.32 - [facility] 5.72 LABORATORIES - X10(12)/L [facility] MCV 92.9 81.2 - [facility] 95.1 FL LABORATORIES - [facility] RBC Distrib 17.4 (H) 11.8 - [facility] Width 15.6 % LABORATORIES - [facility] Platelet Count 207 150 - 450 [facility] X10(9)/L LABORATORIES - [facility] Lymphocytes 0.89 (L) 0.90 - [facility] 2.90 LABORATORIES - X10(9)/L [facility] Monocytes 0.56 0.30 - [facility] 0.90 LABORATORIES - X10(9)/L [facility] Hemoglobin 8.8 (L) 13.5 - [facility] 17.5 G/DL LABORATORIES - [facility] Hematocrit 26.2 (L) 38.8 - [facility] 50.0 % LABORATORIES - [facility] Leukocytes 7.4 3.5 - [facility] 10.5 LABORATORIES - X10(9)/L [facility] Neutrophils 5.93 1.70 - [facility] 7.00 LABORATORIES - X10(9)/L [facility] Eosinophils 0.05 0.05 - [facility] 0.50 LABORATORIES - X10(9)/L [facility] Basophils 0.01 0.00 - [facility] 0.30 LABORATORIES - X10(9)/L [facility] Specimen Anatomical Collection Method Collection Time Receive d Time (Source) Location / / Volume Laterality 06/25/2013 5:16 AM 4 5:16 FERTILIZER SUPERVISOR AM FERTILIZER SUPERVISOR Arley Ho APRN.N.P., M.S.N., R.N. LAB BLOOD NON ADD-ON Performing Organization Address City/State/[facility] Code Phon e Number [facility] LABORATORIES - [address] [place], [place] [address] [facility] PT (Prothrombin Time) with INR (06/25/2013 5:16 AM FERTILIZER SUPERVISOR) [facility] gist Method Time Signature Prothrombin 11.6 9.5 - 13.8 [facility] Time, P SEC LABORATORIES - [facility] INR 1.0 0.8 - 1.2 [facility] LABORATORIES - [facility] Specimen Anatomical Collection Method Collection Time Receive d Time (Source) Location / / Volume Laterality 06/25/2013 5:16 AM 4 5:16 FERTILIZER SUPERVISOR AM FERTILIZER SUPERVISOR Arley Ho APRN.N.P., M.S.N., R.N. LAB BLOOD ADD-ON Performing Organization Address City/State/[facility] Code Phon e Number [facility] LABORATORIES - [address] [phone] [facility] Magnesium (06/25/2013 5:16 AM FERTILIZER SUPERVISOR) P athologist Signature Magnesium, S 1.8 1.7 - 2.3 [facility] MG/DL LABORATORIES - [facility] Specimen Anatomical Collection Method Collection Time Receive d Time (Source) Location / / Volume Laterality 06/25/2013 5:16 AM 4 5:16 FERTILIZER SUPERVISOR AM FERTILIZER SUPERVISOR Radha Block APRN, C.N.P., M.S.N., R.N. LAB BLOOD ADD-ON Performing Organization Address City/[facility]/ZIP Code Phon e Number [facility] LABORATORIES - [address] [phone] [facility] AST (Aspartate Aminotransferase) (06/25/2013 5:16 AM FERTILIZER SUPERVISOR) P athologist Signature AST, Total, S 13 8 - 48 U/L [facility] Specimen Anatomical Collection Method Collection Time Receive d Time (Source) Location / / Volume Laterality 06/25/2013 5:16 AM 4 5:16 FERTILIZER SUPERVISOR AM FERTILIZER SUPERVISOR Radha Block APRN, C.N.P., M.S.N., R.N. LAB BLOOD ADD-ON Performing Organization Address City/State/ZIP Code Phon e Number [facility] LABORATORIES - [address] [phone] [facility] (ABNORMAL) Electrolyte (Chem 4) Panel (06/25/2013 5:16 AM FERTILIZER SUPERVISOR) Patholo gist Method Time Signature Chloride, S 103 100 - 108 [facility] MMOL/L LABORATORIES - [facility] HX Bicarbonate, 23 22 - 29 [facility] P/S MMOL/L [facility] Creatinine 1.3 0.8 - 1.3 [facility] MG/DL [facility] eGFR 57 (L) >60 [facility] Non-Black/Afric ML/MIN/BS LABORATORIES - Russian A [facility] eGFR-Black/Afri >60 >60 [facility] can Russian ML/MIN/BS LABORATORIES - [facility] BUN (Blood Urea 23 8 - 24 [facility] Nitrogen), S MG/DL [facility] Anion Gap 8 7 - 15 [facility] Glucose, S 239 (H) 70 - 140 [facility] MG/DL LABORATORIES - [facility] Sodium, S 134 (L) 135 - 145 [facility] MMOL/L LABORATORIES - [facility] Potassium, S 5.4 (H) 3.6 - 5.2 [facility] MMOL/L LABORATORIES - [facility] Specimen Anatomical Collection Method Collection Time Receive d Time (Source) Location / / Volume Laterality 06/25/2013 5:16 AM 4 5:16 FERTILIZER SUPERVISOR AM FERTILIZER SUPERVISOR Radha Block APRN, C.N.P., M.S.N., R.N. LAB BLOOD ADD-ON Performing Organization Address City/[facility]/ZIP Code Phon e Number [facility] LABORATORIES - [address] [phone] [facility] (ABNORMAL) Albumin (06/25/2013 5:16 AM FERTILIZER SUPERVISOR) P athologist Signature Albumin, S 3.1 (L) 3.5 - 5.0 [facility] G/DL LABORATORIES - [facility] Specimen Anatomical Collection Method Collection Time Receive d Time (Source) Location / / Volume Laterality 06/25/2013 5:16 AM 4 5:16 FERTILIZER SUPERVISOR AM FERTILIZER SUPERVISOR Radha Block APRN, C.N.P., M.S.N., R.N. LAB BLOOD ADD-ON Performing Organization Address City/[facility] Code Phon e Number [facility] LABORATORIES - [address] [phone] [facility] (ABNORMAL) Bilirubin (06/25/2013 5:16 AM FERTILIZER SUPERVISOR) Patholo gist Method Time Signature Bilirubin, 2.1 (H) 0.1 - 1.0 [facility] Total, S MG/DL LABORATORIES - [facility] Bilirubin, 1.3 (H) 0.0 - 0.3 [facility] Direct, S MG/DL LABORATORIES - [facility] Specimen Anatomical Collection Method Collection Time Receive d Time (Source) Location / / Volume Laterality 06/25/2013 5:16 AM 4 5:16 FERTILIZER SUPERVISOR AM FERTILIZER SUPERVISOR Radha Block APRN, C.N.P., M.S.N., R.N. LAB BLOOD ADD-ON Performing Organization Address City/State/ZIP Code Phon e Number [facility] LABORATORIES - [address] [place], [place] [address] [facility] (ABNORMAL) Calcium, Total (06/25/2013 5:16 AM FERTILIZER SUPERVISOR) [facility] Method Time Signature Calcium, 7.8 (L) 8.9 - 10.1 [facility] Total, S MG/DL LABORATORIES - [facility] Specimen Anatomical Collection Method Collection Time Receive d Time (Source) Location / / Volume Laterality 06/25/2013 5:16 AM 4 5:16 FERTILIZER SUPERVISOR AM FERTILIZER SUPERVISOR Radha Block APRN, C.N.P., M.S.N., R.N. LAB BLOOD ADD-ON Performing Organization Address City/State/ZIP Code Phon e Number [facility] LABORATORIES - [address] [place], [place] [address] [facility] (ABNORMAL) Tacrolimus Level (06/25/2013 5:16 AM FERTILIZER SUPERVISOR) [facility] Method [employer] Signature Tacrolimus, B 4.3 (L) 5.0-15.0 [facility] (Trough) LABORATORIES - NG/ML [facility] Tacrolimus . [facility] Blood Date of LABORATORIES - Last Dose [facility] Comment: Not Specified Tacrolimus Time of Last Dose . M [facility] LABORATORIES - [facility] Comment: Not Specified Tacrolimus Blood Dose, mg . MG [facility] LABORATORIES - [facility] Comment: Not Specified Specimen Anatomical Collection Method Collection Time Receive d Time (Source) Location / / Volume Laterality 06/25/2013 5:16 AM 4 5:16 FERTILIZER SUPERVISOR AM FERTILIZER SUPERVISOR Arley Ho APRN.N.P., M.S.N., R.N. LAB BLOOD NON ADD-ON Performing Organization Address City/State/ZIP Code Phon e Number [facility] LABORATORIES - [address] [place], [place] [address] [facility] (ABNORMAL) Glucose, POCT (06/24/2013 10:03 PM FERTILIZER SUPERVISOR) [facility] Method Time Signature Glucose, POCT, 239 (H) 70 - 140 [facility] B MG/DL LABORATORIES - [facility] Last Intake 1-2 hours [facility] LABORATORIES [facility] Specimen Anatomical Collection Method Collection Time Receive d Time (Source) Location / / Volume Laterality 06/24/2013 10:03 06/24/2013 PM FERTILIZER SUPERVISOR 10:03 PM FERTILIZER SUPERVISOR Historical Provider LAB POCT ORDERABLES-MANUAL Performing Organization Address City/[facility] Phon e Number [facility] LABORATORIES - [address] [place], [place] [address] [facility] (ABNORMAL) Glucose, POCT (06/24/2013 6:21 PM FERTILIZER SUPERVISOR) [facility] Method Time Signature Last Intake 1-2 hours [facility] Glucose, 298 (H) 70 - 140 [facility] POCT, B MG/DL LABORATORIES - [facility] Sample Site, Capillary [facility] Blood Gas, LABORATORIES - POCT [facility] Specimen Anatomical Collection Method Collection Time Receive d Time (Source) Location / / Volume Laterality 06/24/2013 6:21 PM 6:21 FERTILIZER SUPERVISOR PM FERTILIZER SUPERVISOR Historical Provider LAB POCT ORDERABLES-MANUAL Performing Organization Address City/[facility] Phon e Number [facility] LABORATORIES - [address] [place], [place] [address] [facility] Glucose, POCT (06/24/2013 11:07 AM FERTILIZER SUPERVISOR) [facility] gist Method Time Signature Last Intake 3-4 hours [facility] LABORATORIES - [facility] Glucose, 137 70 - 140 [facility] POCT, B MG/DL LABORATORIES - [facility] Sample Site, Capillary [facility] Blood Gas, LABORATORIES - POCT [facility] Specimen Anatomical Collection Method Collection Time Receive d Time (Source) Location / / Volume Laterality 06/24/2013 11:07 06/24/2013 AM FERTILIZER SUPERVISOR 11:07 AM FERTILIZER SUPERVISOR Historical Provider LAB POCT ORDERABLES-MANUAL Performing Organization Address City/[facility] Phon e Number [facility] LABORATORIES - [address] [place], [place] [address] [facility] (ABNORMAL) Glucose, POCT (06/24/2013 6:30 AM FERTILIZER SUPERVISOR) [facility] Method Time Signature Glucose, 229 (H) 70 - 140 [facility] POCT, B MG/DL LABORATORIES - [facility] Sample Site, Capillary [facility] Blood Gas, LABORATORIES - POCT [facility] Specimen Anatomical Collection Method Collection Time Receive d Time (Source) Location / / Volume Laterality 06/24/2013 6:30 AM 6:30 FERTILIZER SUPERVISOR AM FERTILIZER SUPERVISOR Historical Provider LAB POCT ORDERABLES-MANUAL Performing Organization Address City/State/ZIP [facility] Phon e Number [facility] LABORATORIES - [address] [place], [place] [address] [facility] (ABNORMAL) Glucose, POCT (06/23/2013 10:12 PM FERTILIZER SUPERVISOR) [facility] Method Time Signature Last Intake <1 hour [facility] LABORATORIES - [facility] Glucose, 256 (H) 70 - 140 [facility] POCT, B MG/DL LABORATORIES - [facility] Sample Site, Capillary [facility] Blood Gas, LABORATORIES - POCT [facility] Specimen Anatomical Collection Method Collection Time Receive d Time (Source) Location / / Volume Laterality 06/23/2013 10:12 06/23/2013 PM FERTILIZER SUPERVISOR 10:12 PM FERTILIZER SUPERVISOR Historical Provider LAB POCT ORDERABLES-MANUAL Performing Organization Address City/[facility]/ZIP Code Phon e Number [facility] LABORATORIES - [address] [place], [place] [address] [facility] (ABNORMAL) Glucose, POCT (06/23/2013 5:11 PM FERTILIZER SUPERVISOR) [facility] gist Method Time Signature Glucose, 361 (H) 70 - 140 [facility] POCT, B MG/DL LABORATORIES - [facility] Sample Site, Capillary [facility] Blood Gas, LABORATORIES - POCT [facility] Last Intake 1-2 hours [facility] LABORATORIES - [facility] Specimen Anatomical Collection Method Collection Time Receive d Time (Source) Location / / Volume Laterality 06/23/2013 5:11 PM 4 5:11 FERTILIZER SUPERVISOR PM FERTILIZER SUPERVISOR Historical Provider LAB POCT ORDERABLES-MANUAL Performing Organization Address City/State/ZIP Code Phon e Number [facility] LABORATORIES - [address] [place], [place] [address] [facility] Glucose, POCT (06/23/2013 11:31 AM FERTILIZER SUPERVISOR) [facility] gist Method Time Signature Last Intake 2-3 hours [facility] LABORATORIES - [facility] Glucose, 126 70 - 140 [facility] POCT, B MG/DL LABORATORIES - [facility] Sample Site, Capillary [facility] Blood Gas, LABORATORIES - POCT [facility] Specimen Anatomical Collection Method Collection Time Receive d Time (Source) Location / / Volume Laterality 06/23/2013 11:31 06/23/2013 AM FERTILIZER SUPERVISOR 11:31 AM FERTILIZER SUPERVISOR Historical Provider LAB POCT ORDERABLES-MANUAL Performing Organization Address City/State/ZIP Code Phon e Number [facility] LABORATORIES - [address] [place], [place] [address] [facility] (ABNORMAL) Glucose, POCT (06/23/2013 6:10 AM FERTILIZER SUPERVISOR) [facility] Signature Glucose, 250 (H) 70 - 140 [facility] POCT, B MG/DL LABORATORIES - [facility] Sample Site, Capillary [facility] Blood Gas, LABORATORIES - POCT [facility] Last Intake 2-3 hours [facility] Specimen Anatomical Collection Method Collection Time Receive d Time (Source) Location / / Volume Laterality 06/23/2013 6:10 AM 4 6:10 FERTILIZER SUPERVISOR AM FERTILIZER SUPERVISOR Historical Provider LAB POCT ORDERABLES-MANUAL Performing Organization Address City/[facility]/ZIP [facility] Phon e Number [facility] - [address] [place], [place] [address] [facility] (ABNORMAL) Bilirubin, Total (06/23/2013 5:24 AM FERTILIZER SUPERVISOR) [facility] Signature Bilirubin, 2.3 (H) 0.1 - 1.0 [facility] Total, S MG/DL [facility] Specimen Anatomical Collection Method Collection Time Receive d Time (Source) Location / / Volume Laterality 06/23/2013 5:24 AM 4 5:24 FERTILIZER SUPERVISOR AM FERTILIZER SUPERVISOR Joselyn Fay M.D. LAB BLOOD ADD-ON Performing Organization Address City/State/ZIP Code Phon e Number [facility] LABORATORIES - [address] [place], [place] [address] [facility] (ABNORMAL) Bilirubin, Direct (06/23/2013 5:24 AM FERTILIZER SUPERVISOR) [facility] Signature Bilirubin, 1.4 (H) 0.0 - 0.3 [facility] Direct, S MG/DL [facility] Specimen Anatomical Collection Method Collection Time Receive d Time (Source) Location / / Volume Laterality 06/23/2013 5:24 AM 4 5:24 FERTILIZER SUPERVISOR AM FERTILIZER SUPERVISOR oJselyn Fay M.D. LAB BLOOD ADD-ON Performing Organization Address City/State/ZIP Code Phon e Number [facility] LABORATORIES - [address] [place] [address] [facility] PT (Prothrombin Time) with INR (06/23/2013 5:24 AM FERTILIZER SUPERVISOR) [facility] Method Time Signature Prothrombin 12.8 9.5 - 13.8 [facility] Time, P SEC LABORATORIES - [facility] INR 1.1 0.8 - 1.2 [facility] LABORATORIES - [facility] Specimen Anatomical Collection Method Collection Time Receive d Time (Source) Location / / Volume Laterality 06/23/2013 5:24 AM 4 5:24 FERTILIZER SUPERVISOR AM FERTILIZER SUPERVISOR Joselyn Fay M.D. LAB BLOOD ADD-ON Performing Organization Address City/[facility] Phon e Number [facility] LABORATORIES - [address] [place] [address] [facility] (ABNORMAL) ALT (Alanine Aminotransferase) (06/23/2013 5:24 AM FERTILIZER SUPERVISOR) [facility] Method Time Signature Alanine 64 (H) 7 - 55 [facility] Aminotransferase U/L LABORATORIES - (ALT), S [facility] Specimen Anatomical Collection Method Collection Time Receive d Time (Source) Location / / Volume Laterality 06/23/2013 5:24 AM 4 5:24 FERTILIZER SUPERVISOR AM FERTILIZER SUPERVISOR Joselyn Fay M.D. LAB BLOOD ADD-ON Performing Organization Address City/State/[facility] Phon e Number [facility] LABORATORIES - [address] [place] [address] [facility] (ABNORMAL) CBC without Differential (06/23/2013 5:24 AM FERTILIZER SUPERVISOR) [facility] Method Time Signature Erythrocytes 2.79 (L) 4.32 - [facility] 5.72 LABORATORIES - X10(12)/L [facility] MCV 90.0 81.2 - [facility] 95.1 FL LABORATORIES [facility] Leukocytes 6.5 3.5 - [facility] 10.5 LABORATORIES - X10(9)/L [facility] Hemoglobin 8.7 (L) 13.5 - [facility] 17.5 G/DL [facility] Hematocrit 25.1 (L) 38.8 - [facility] 50.0 % LABORATORIES [facility] RBC Distrib 17.0 (H) 11.8 - [facility] Width 15.6 % LABORATORIES [facility] Platelet Count 178 150 - 450 [facility] X10(9)/L LABORATORIES [facility] Specimen Anatomical Collection Method Collection Time Receive d Time (Source) Location / / Volume Laterality 06/23/2013 5:24 AM 4 5:24 FERTILIZER SUPERVISOR AM FERTILIZER SUPERVISOR Joselyn Fay M.D. LAB BLOOD ADD-ON Performing Organization Address City/State/ZIP Code Phon e Number [facility] LABORATORIES - [address] [place] [address] [facility] Phosphorus Inorganic (06/23/2013 5:24 AM FERTILIZER SUPERVISOR) Analysis Performed At Patho logist Time Signature Phosphorus 3.5 2.5 - 4.5 [facility] (Inorganic), S MG/DL [facility] Specimen Anatomical Collection Method Collection Time Receive d Time (Source) Location / / Volume Laterality 06/23/2013 5:24 AM 4 5:24 FERTILIZER SUPERVISOR AM FERTILIZER SUPERVISOR Joselyn Fay M.D. LAB BLOOD ADD-ON Performing Organization Address City/[facility]/ZIP Code Phon e Number [facility] LABORATORIES - [address] (ABNORMAL) Albumin (06/23/2013 5:24 AM FERTILIZER SUPERVISOR) P athologist Signature Albumin, S 2.8 (L) 3.5 - 5.0 [facility] G/DL [facility] Specimen Anatomical Collection Method Collection Time Receive d Time (Source) Location / / Volume Laterality 06/23/2013 5:24 AM 4 5:24 FERTILIZER SUPERVISOR AM FERTILIZER SUPERVISOR Joselyn Fay M.D. LAB BLOOD ADD-ON Performing Organization Address City/State/ZIP Code Phon e Number [facility] LABORATORIES - [address] AST (Aspartate Aminotransferase) (06/23/2013 5:24 AM FERTILIZER SUPERVISOR) P athologist Signature AST, Total, S 27 8 - 48 U/L [facility] Specimen Anatomical Collection Method Collection Time Receive d Time (Source) Location / / Volume Laterality 06/23/2013 5:24 AM 4 5:24 FERTILIZER SUPERVISOR AM FERTILIZER SUPERVISOR Joselyn Fay M.D. LAB BLOOD ADD-ON Performing Organization Address City/State/ZIP Code Phon e Number [facility] LABORATORIES - [address] [place] [address] [facility] (ABNORMAL) Electrolyte (Chem 4) Panel (06/23/2013 5:24 AM FERTILIZER SUPERVISOR) Patholo gist Method Time Signature Sodium, S 136 135 - 145 [facility] MMOL/L LABORATORIES - [facility] Potassium, S 4.4 3.6 - 5.2 [facility] MMOL/L LABORATORIES - [facility] Chloride, S 103 100 - 108 [facility] MMOL/L LABORATORIES - [facility] HX Bicarbonate, 23 22 - 29 [facility] P/S MMOL/L LABORATORIES - [facility] Creatinine 1.3 0.8 - 1.3 [facility] MG/DL LABORATORIES - [facility] eGFR 57 (L) >60 [facility] Non-Black/Afric ML/MIN/BS LABORATORIES - Russian A [facility] eGFR-Black/Afri >60 >60 [facility] can Russian ML/MIN/BS LABORATORIES - A [facility] BUN (Blood Urea 20 8 - 24 [facility] Nitrogen), S MG/DL LABORATORIES - [facility] Anion Gap 10 7 - 15 [facility] LABORATORIES - [facility] Glucose, S 266 (H) 70 - 140 [facility] MG/DL LABORATORIES - [facility] Specimen Anatomical Collection Method Collection Time Receive d Time (Source) Location / / Volume Laterality 06/23/2013 5:24 AM 4 5:24 FERTILIZER SUPERVISOR AM FERTILIZER SUPERVISOR Joselyn Fay M.D. LAB BLOOD ADD-ON Performing Organization Address City/[facility] Code Phon e Number [facility] LABORATORIES - [address] [place] [address] [facility] Tacrolimus Level (06/23/2013 5:24 AM FERTILIZER SUPERVISOR) Analysis Performed At Patho logist Time Signature Tacrolimus, B 8.3 5.0-15.0 [facility] (Trough) LABORATORIES - NG/ML [facility] Tacrolimus . [facility] Blood Date of LABORATORIES - Last Dose [facility] Comment: Not Specified Tacrolimus Time of Last Dose . M [facility] LABORATORIES - [facility] Comment: Not Specified Tacrolimus Blood Dose, mg . MG [facility] LABORATORIES - [facility] Comment: Not Specified Specimen Anatomical Collection Method Collection Time Receive d Time (Source) Location / / Volume Laterality 06/23/2013 5:24 AM 4 5:24 FERTILIZER SUPERVISOR AM FERTILIZER SUPERVISOR Joselyn Fay M.D. LAB BLOOD NON ADD-ON Performing Organization Address City/[facility] Phon e Number [facility] LABORATORIES - [address] [place] [address] [facility] Magnesium (06/23/2013 5:24 AM FERTILIZER SUPERVISOR) P athologist Signature Magnesium, S 1.8 1.7 - 2.3 [facility] MG/DL LABORATORIES - [facility] Specimen Anatomical Collection Method Collection Time Receive d Time (Source) Location / / Volume Laterality 06/23/2013 5:24 AM 4 5:24 FERTILIZER SUPERVISOR AM FERTILIZER SUPERVISOR Joselyn Fay M.D. LAB BLOOD ADD-ON Performing Organization Address City/[facility]/ZIP Code Phon e Number [facility] LABORATORIES - [address] [place] [address] [facility] (ABNORMAL) Alkaline Phosphatase (06/23/2013 5:24 AM FERTILIZER SUPERVISOR) [facility] Method Time Signature Alkaline 122 (H) 45 - 115 [facility] Phosphatase, S U/L LABORATORIES - [facility] Specimen Anatomical Collection Method Collection Time Receive d Time (Source) Location / / Volume Laterality 06/23/2013 5:24 AM 4 5:24 FERTILIZER SUPERVISOR AM FERTILIZER SUPERVISOR Joselyn Fay M.D. LAB BLOOD ADD-ON Performing Organization Address City/State/ZIP Code Phon e Number [facility] LABORATORIES - [address] [place] [address] [facility] (ABNORMAL) Glucose, POCT (06/23/2013 1:54 AM FERTILIZER SUPERVISOR) [facility] Method Time Signature Glucose, POCT, 153 (H) 70 - 140 [facility] B MG/DL [facility] Specimen Anatomical Collection Method Collection Time Receive d Time (Source) Location / / Volume Laterality 06/23/2013 1:54 AM 4 1:54 FERTILIZER SUPERVISOR AM FERTILIZER SUPERVISOR Historical Provider LAB POCT ORDERABLES-MANUAL Performing Organization Address City/[facility]/ZIP Code Phon e Number [facility] LABORATORIES - [address] [place] [address] [facility] (ABNORMAL) Glucose, POCT (06/22/2013 10:32 PM FERTILIZER SUPERVISOR) [facility] Method Time Signature Last Intake > 4 hours [facility] Glucose, 238 (H) 70 - 140 [facility] POCT, B MG/DL LABORATORIES - [facility] Sample Site, Capillary [facility] Blood Gas, LABORATORIES - POCT [facility] Specimen Anatomical Collection Method Collection Time Receive d Time (Source) Location / / Volume Laterality 06/22/2013 10:32 06/22/2013 PM FERTILIZER SUPERVISOR 10:32 PM FERTILIZER SUPERVISOR Historical Provider LAB POCT ORDERABLES-MANUAL Performing Organization Address City/[facility] Code Phon e Number [facility] LABORATORIES - [address] [place] [address] [facility] Microbiology Reports (06/22/2013 10:04 PM FERTILIZER SUPERVISOR) Specimen Anatomical Collection Method Collection Time Receive d Time (Source) Location / / Volume Laterality 06/22/2013 10:04 06/22/2013 PM FERTILIZER SUPERVISOR 10:04 PM FERTILIZER SUPERVISOR Narrative [facility] - 06/24/2013 5:56 AM FERTILIZER SUPERVISOR 22-JUN-2013 URINE, MIDSTREAM, ?SoftOrd# [id number] ?(Ordered 22-JUN-2013; Collec onel 22-JUN-2013 22:04; Received 22-JUN-2013 23:11) ?[facility] ?BACTERIAL CULTURE, AEROBIC + GRIFFITH SC ? (Reported 24-JUN-2013 05:56) FINAL ?No Growth after 1 day of inc ubation. Procedure Note 10/01/2017 22-JUN-2013 URINE, MIDSTREAM, SoftOrd# [id number] (Ordered 22-JUN-2013; Collected 2012 22:04; Received 22-JUN-2013 23:11) [facility] BACTERIAL CULTURE, AEROBIC + SUSC (Rep orted 24-JUN-2013 05:56) FINAL No Growth after 1 day of incubation. Joselyn Fay M.D. LAB MICROBIOLOGY - GENERAL O RDERABLES Performing Organization Address City/State/ZIP Code Phon e Number [facility] LABORATORIES - [address] [place] [address] [facility] Ketones, Qual, Urine (06/22/2013 10:04 PM FERTILIZER SUPERVISOR) [facility] Method Time Signature HX Ketones, Negative Negative [facility] Ql. MG/DL [facility] Specimen Anatomical Collection Method Collection Time Receive d Time (Source) Location / / Volume Laterality 06/22/2013 10:04 06/22/2013 PM FERTILIZER SUPERVISOR 10:04 PM FERTILIZER SUPERVISOR Joselyn Fay M.D. LAB URINE ORDERABLES Performing Organization Address City/[facility]/ZIP Code Phon e Number [facility] LABORATORIES - [address] [place] [phone] 05 [facility] Microscopic Manual (06/22/2013 10:04 PM FERTILIZER SUPERVISOR) P athologist Signature Microscopy Normal [facility] WBC 1-3 1-3 [facility] (Males); LABORATORIES - 1-10 [facility]Females[facility] /HPF Specimen Anatomical Collection Method Collection Time Receive d Time (Source) Location / / Volume Laterality 06/22/2013 10:04 06/22/2013 PM FERTILIZER SUPERVISOR 10:04 PM FERTILIZER SUPERVISOR Joselyn Fay M.D. LAB URINE ORDERABLES Performing Organization Address City/[facility]/ZIP Code Phon e Number [facility] LABORATORIES - [address] [place] [address] [facility] (ABNORMAL) Urinalysis with Microscopic (06/22/2013 10:04 PM FERTILIZER SUPERVISOR) [facility] Method Time Signature Appearance Normal Normal [facility] Glucose >750 (H) 0 - 15 MG/DL [facility] Osmolality, 24 390 150 - 1150 [facility] HR, U MOSM/KG [facility] pH, 24 HR, U 7.1 4.5 - 8.0 [facility] Protein/Osmola 0.92 (H) <0.12 RATIO [facility] lity [facility] Predicted 24 873 MG/24 H [facility] Hr Protein [facility] Predicted 277-2749 MG/24 H [facility] Range [facility] Hemoglobin, QL Negative Negative [facility] Source Midstream [facility] Protein, U 36 (H) 0 - 19 MG/DL [facility] Specimen Anatomical Collection Method Collection Time Receive d Time (Source) Location / / Volume Laterality 06/22/2013 10:04 06/22/2013 PM FERTILIZER SUPERVISOR 10:04 PM FERTILIZER SUPERVISOR Joselyn Fay M.D. LAB URINE ORDERABLES Performing Organization Address [facility] Phon e Number [address] Gram Stain, Urine (06/22/2013 10:04 PM FERTILIZER SUPERVISOR) [facility] gist Method Time Signature Gram's Stain, Negative [facility] Screen, U [facility] Specimen Anatomical Collection Method Collection Time Receive d Time (Source) Location / / Volume Laterality 06/22/2013 10:04 06/22/2013 PM FERTILIZER SUPERVISOR 10:04 PM FERTILIZER SUPERVISOR Joselyn Fay M.D. LAB URINE ORDERABLES Performing Organization Address [facility] Phon e Number [facility] - [address] [place] [phone] [facility] Microbiology Reports (06/22/2013 7:13 PM FERTILIZER SUPERVISOR) Specimen Anatomical Collection Method Collection Time Receive d Time (Source) Location / / Volume Laterality 06/22/2013 7:13 PM 3 7:13 FERTILIZER SUPERVISOR PM FERTILIZER SUPERVISOR Narrative [facility] - 06/27/2013 11:30 PM FERTILIZER SUPERVISOR 22-JUN-2013 BLOOD, ? SoftOrd# [id number] ?(Ordered 22-JUN-2013; Collec onel 22-JUN-2013 19:13; Received 22-JUN-2013 19:41) ?[facility] ?BACTERIA/MARRY CULTURE, BLOOD ? (Reported 27-JUN-2013 23:30) FINAL ?No growth after 5 days of in cubation. Procedure Note 04/11/2018 22-JUN-2013 BLOOD, SoftOrd# [id number] (Ordered 22-JUN-2013; Collected 2012 19:13; Received 22-JUN-2013 19:41) [facility] BACTERIA/MARRY CULTURE, BLOOD (Repor onel 27-JUN-2013 23:30) FINAL No growth after 5 days of incubation. Historical Provider LAB MICROBIOLOGY - GENERAL O RDERABLES Performing Organization Address City/State/ZIP Code Phon e Number [facility] - [address] [place], [place] [address] [facility] Microbiology Reports (06/22/2013 7:02 PM FERTILIZER SUPERVISOR) Specimen Anatomical Collection Method Collection Time Receive d Time (Source) Location / / Volume Laterality 06/22/2013 7:02 PM 3 7:02 FERTILIZER SUPERVISOR PM FERTILIZER SUPERVISOR Narrative [facility] - [facility] - 08/22/2013 1:05 AM FERTILIZER SUPERVISOR 22-JUN-2013 BLOOD, ? SoftOrd# [id number] ?(Ordered 22-JUN-2013; Collec onel 22-JUN-2013 19:02; Received 22-JUN-2013 19:38) ?[facility] ?Received Bactec aerobic and Bactec anaerobic bottles Received Isolator and two Bactec Myco F bottles ?FUNGAL/TB CULTURE, SPECIAL, BLO OD ? (Reported 22-AUG-2013 01:05) FINAL ?No Growth after 60 days of i ncubation. ?BACTERIA/MARRY CULTURE, BLOOD ? (Reported 27-JUN-2013 23:30) FINAL ?No growth after 5 days of in cubation. Procedure Note 10/01/2017 22-JUN-2013 BLOOD, SoftOrd# [id number] (Ordered 22-JUN-2013; Collected 2012 19:02; Received 22-JUN-2013 19:38) [facility] Received Bactec aerobic and Bactec anae robic bottles Received Isolator and two Bactec Myco F bottles FUNGAL/TB CULTURE, SPECIAL, BLOOD (Rep orted 22-AUG-2013 01:05) FINAL No Growth after 60 days of incubation. BACTERIA/MARRY CULTURE, BLOOD (Repor onel 27-JUN-2013 23:30) FINAL No growth after 5 days of incubation. Historical Provider LAB MICROBIOLOGY - GENERAL O RDERABLES Performing Organization Address City/[facility] Phon e Number [facility] - [address] [phone] [facility] Ammonia Level, Plasma (06/22/2013 7:02 PM FERTILIZER SUPERVISOR) P athologist Signature Ammonia, B <10 <50 MCG [facility] N/DL LABORATORIES - [facility] Specimen Anatomical Collection Method Collection Time Receive d Time (Source) Location / / Volume Laterality 06/22/2013 7:02 PM 3 7:02 FERTILIZER SUPERVISOR PM FERTILIZER SUPERVISOR Historical Provider LAB BLOOD NON ADD-ON Performing Organization Address [facility] Phon e Number [facility] - [address] [phone] [facility] Hx general Pathology Report (06/14/2013 9:16 AM FERTILIZER SUPERVISOR) Specimen Anatomical Collection Method Collection Time Receive d Time (Source) Location / / Volume Laterality 06/14/2013 9:16 AM 3 9:16 FERTILIZER SUPERVISOR AM FERTILIZER SUPERVISOR Narrative [facility] - [facility] - 06/14/2013 9:16 AM FERTILIZER SUPERVISOR ??06/12/2013 General Biopsy ? ([id number]) ? Requested By: He Grayson M.D. ?? [phone] ? Additional Physician: ??Liver Transplan t Service [id number] ? SLIDE DISPOSITION: ? DIAGNOSIS: ?? OLT [id number] A. ??Liver, donor, biopsy: ??Hepatic pa renchyma [...] ? 06/28/2013 15:18 Interpreted by: Leonid Oneal [id number] Report electronically signed by Leonid Oneal Transcribed by: [email or web address] 06/28/2013 09:38:11 ? TISSUE DESCRIPTION: [id number] ?A. ??Received in formalin label ed with the patients name and UNOS number [id number] and labeled as li geryr is a 0.6 x 0.4 x 0.4 cm grady unremarkable wedge of liver tissue. ??The specimen is bisected and submitted entirely in cassette A1. ?? B. Received in formalin labeled with th e patient's name and clinic number [id number] labeled liver is a 9 30 gm 18.5 x 17.0 x 4.5 cm liver explant specimen. ??The liver is red- brown with focal adhesions, a soft texture and with a ma cronodular outer surface. ?? The cut surface is green and homogenous . ??the cut surface is photographed. Manager Cargo sections a re submitted as follows: B1, [...] ?16 Hilum ?17 Hilum ?18 Hilum ?? [facility]WG Pathologist ? Procedure Note 2017 06/12/2013 General Biopsy ([id number]) Requested By: He Grayson M.D. [phone] Additional Physician: Liver Transplant Service [id number] SLIDE DISPOSITION: DIAGNOSIS: OLT [id number] A. Liver, donor, biopsy: Hepatic parenc hyma with focal centrilobular hepatocyte dropout consis tent with preservation/ reperfusion injury. No significant stea tosis or fibrosis. An iron stain is negative for hemosiderin depos ition. B. 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 (See comme nt.) Dictated by Lynn Christian BDemetrius SDemetrius, GI /Liver Pathology Fellow DIAGNOSIS COMMENT: [...] Transcribed by: [email or web address] 06/28/2013 09:38:11 TISSUE DESCRIPTION: [id number] A. Received in formalin labeled with th e patients name and UNOS number [id number] and labeled as li gerry is a 0.6 x 0.4 x 0.4 cm grady unremarkable wedge of liver tissue. The specimen is bisected and submitted entirely in cassette A1. B. Received in formalin labeled with th e patient's name and clinic number [id number] labeled liver is a 9 30 gm 18.5 x 17.0 x 4.5 cm liver explant specimen. The liver is re d- brown with focal adhesions, a soft texture and with a ma cronodular outer surface. The cut surface is green and homogenous . the cut surface is photographed. Manager Cargo sections a re submitted as follows: B1, [...] 17 Hilum 18 Hilum LIWG Pathologist He B Grayson M.D. LAB PATHOLOGY/CYTOLOGY ORDER OSMEL Performing Organization Address City/State/ZIP Code Phon e Number [facility] - [address] [place], [place] [address] [facility] documented in this encounter Visit Diagnoses Not on filedocumented in this encounter Additional Health Concerns Assessment Noted Time PHQ-9 Depression Total Score: 3 04/07/2013 9:47 AM CDT documented as of this encounter
--- OUTSIDE RECORDS SUMMARY | 2022-05-17 19:08 | XMS_ITS | Encounter Summary ---
:[address] [facility] Address [address] [place] [address] Care Team Providers Name Role Phone Unavailable Primary Care Provider Unavailable Encounter Details Date Type Department Care Team Description 06/28/2013 - Hospital Encounter HX RST GENEROSE 3 Tres Rogers, 07/02/2013 EAST D.ODemetrius [address] [place] [phone] (Wo rk) Social History Tobacco Use Types [...] Date Recorded Male 05/16/2020 4:27 PM RESIDENT ASSOCIATE documented as of this encounter Last Filed Vital Signs Vital Sign Reading Time Taken Comments Blood Pressure 144/85 07/02/2013 8:47 AM RESIDENT ASSOCIATE Pulse 71 07/02/2013 8:47 AM RESIDENT ASSOCIATE Temperature - - Respiratory Rate 18 07/02/2013 8:47 AM RESIDENT ASSOCIATE Oxygen Saturation - - Inhaled Oxygen Concentration - - Weight 72.2 kg (159 lb 2.8 oz) 07/01/2013 4:58 AM RESIDENT ASSOCIATE Height - - Body Mass Index 22.79 06/28/2013 2:11 AM RESIDENT ASSOCIATE documented in this encounter Medications at Time [...] Laboratory Medicine Angélica Granger P.A.-C. [address] [place] [phone] 05/23/2022 Clinical Admitting/Central Communication Scheduling 05/27/2022 Comprehensive Visit Orthopedic Surgery Markus Sams M.D., Ph.D. [address] [place] [phone] 05/29/2022 Office Visit Otorhinolaryngology Dex Matta APRN, C.N.P., M.S.N. [address] [place] [phone] 05/29/2022 Office Visit Otorhinolaryngology Nadeem Maradiaga, Jennifer., M.S. [address] [place] [phone] 05/31/2022 Appointment Radiology Guilherme Matt MPAS, P.A.-C., M.S. [address] [place] [phone] 06/05/2022 Appointment Laboratory Medicine Angélica Granger P.A.-C. [address] [place] [phone] 06/19/2022 Appointment Laboratory Medicine Angélica Granger P.A.-C. [address] [place] [phone] 07/03/2022 Appointment Laboratory Medicine Angélica Granger P.A.-C. [address] [place] [phone] 07/17/2022 Appointment Laboratory Medicine Angélica Granger P.A.-C. [address] [place] [phone] 07/31/2022 Appointment Laboratory Medicine Angélica Granger P.A.-C. [address] [place] [phone] 08/14/2022 Appointment Laboratory Medicine Angélica Granger P.A.-C. [address] [place] [phone] 08/28/2022 Appointment Laboratory Medicine Angélica Granger P.A.-C. [address] [place] [phone] documented as of this encounter Procedures Procedure Name Priority Date/Time Associated Comments Diagnosis LIPID PANEL, S Routine 07/04/2013 6:58 Results fo r this AM RESIDENT ASSOCIATE procedure are i n the results section. HLA CLASS II SAB Routine 07/04/2013 6:58 Results for this ANTIBODY SCREEN AM RESIDENT ASSOCIATE procedure ar e in the results section. HLA CLASS I SAB ANTIBODY Routine 07/04/2013 6:58 Results for this SCREEN AM RESIDENT ASSOCIATE procedure are i n the results section. TACROLIMUS LEVEL, B Routine 07/04/2013 6:58 Resul ts for this AM RESIDENT ASSOCIATE procedure are i n the results section. ACTIVATED PARTIAL Routine 07/04/2013 6:58 Results for this THROMBOPLASTIN TIME AM RESIDENT ASSOCIATE procedur e are in (APTT), P the results section. PROTHROMBIN TIME (PT), P Routine 07/04/2013 6:58 Results for this AM RESIDENT ASSOCIATE procedure are i n the results section. CBC WITH DIFFERENTIAL, B Routine 07/04/2013 6:58 Results for this AM RESIDENT ASSOCIATE procedure are i n the results section. BUN (BLOOD UREA Routine 07/04/2013 6:58 Results f or this NITROGEN), S/P AM RESIDENT ASSOCIATE procedure are in the results section. ALANINE AMINOTRANSFERASE Routine 07/04/2013 6:58 Results for this (ALT), S/P AM RESIDENT ASSOCIATE procedure are i n the results section. ASPARTATE Routine 07/04/2013 6:58 Results for this AMINOTRANSFERASE (AST), AM RESIDENT ASSOCIATE proc edure are in S/P the results section. SODIUM, S/P Routine 07/04/2013 6:58 Results for this AM RESIDENT ASSOCIATE procedure are i n the results section. PROTEIN, TOTAL, S/P Routine 07/04/2013 6:58 Resul ts for this AM RESIDENT ASSOCIATE procedure are i n the results section. POTASSIUM, S/P Routine 07/04/2013 6:58 Results fo r this AM RESIDENT ASSOCIATE procedure are i n the results section. PHOSPHORUS (INORGANIC), Routine 07/04/2013 6:58 R esults for this S AM RESIDENT ASSOCIATE procedure are i n the results section. ALKALINE PHOSPHATASE, Routine 07/04/2013 6:58 Res ults for this S/P AM RESIDENT ASSOCIATE procedure are i n the results section. GLUCOSE, FASTING, S/P Routine 07/04/2013 6:58 Res ults for this AM RESIDENT ASSOCIATE procedure are i n the results section. CREATININE WITH EGFR, Routine 07/04/2013 6:58 Res ults for this S/P AM RESIDENT ASSOCIATE procedure are i n the results section. CHLORIDE, S/P Routine 07/04/2013 6:58 Results for this AM RESIDENT ASSOCIATE procedure are i n the results section. BICARBONATE, B/S/P Routine 07/04/2013 6:58 Result s for this AM RESIDENT ASSOCIATE procedure are i n the results section. BILIRUBIN DIRECT, S/P Routine 07/04/2013 6:58 Res ults for this AM RESIDENT ASSOCIATE procedure are i n the results section. BILIRUBIN, TOT, S/P Routine 07/04/2013 6:58 Resul ts for this AM RESIDENT ASSOCIATE procedure are i n the results section. ALBUMIN, S/P Routine 07/04/2013 6:58 Results for this AM RESIDENT ASSOCIATE procedure are i n the results section. GLUCOSE POCT, B Routine 07/02/2013 11:40 Results for this AM RESIDENT ASSOCIATE procedure are i n the results section. GLUCOSE POCT, B Routine 07/02/2013 6:44 Results f or this AM RESIDENT ASSOCIATE procedure are i n the results section. ELECTROLYTE (CHEM 4) Routine 07/02/2013 6:09 Resu lts for this PANEL, S/P AM RESIDENT ASSOCIATE procedure are i n the results section. TACROLIMUS LEVEL, B Routine 07/02/2013 6:09 Resul ts for this AM RESIDENT ASSOCIATE procedure are i n the results section. CBC WITH DIFFERENTIAL, B Routine 07/02/2013 6:09 Results for this AM RESIDENT ASSOCIATE procedure are i n the results section. ALANINE AMINOTRANSFERASE Routine 07/02/2013 6:09 Results for this (ALT), S/P AM RESIDENT ASSOCIATE procedure are i n the results section. ASPARTATE Routine 07/02/2013 6:09 Results for this AMINOTRANSFERASE (AST), AM RESIDENT ASSOCIATE proc edure are in S/P the results section. ALKALINE PHOSPHATASE, Routine 07/02/2013 6:09 Res ults for this S/P AM RESIDENT ASSOCIATE procedure are i n the results section. BILIRUBIN, TOT, S/P Routine 07/02/2013 6:09 Resul ts for this AM RESIDENT ASSOCIATE procedure are i n the results section. GLUCOSE POCT, B Routine 07/01/2013 9:15 Results f or this PM RESIDENT ASSOCIATE procedure are i n the results section. GLUCOSE POCT, B Routine 07/01/2013 5:16 Results f or this PM RESIDENT ASSOCIATE procedure are i n the results section. GLUCOSE POCT, B Routine 07/01/2013 11:27 Results for this AM RESIDENT ASSOCIATE procedure are i n the results section. GLUCOSE POCT, B Routine 07/01/2013 6:30 Results f or this AM RESIDENT ASSOCIATE procedure are i n the results section. GLUCOSE POCT, B Routine 06/30/2013 8:54 Results f or this PM RESIDENT ASSOCIATE procedure are i n the results section. GLUCOSE POCT, B Routine 06/30/2013 4:31 Results f or this PM RESIDENT ASSOCIATE procedure are i n the results section. GLUCOSE POCT, B Routine 06/30/2013 3:27 Results f or this PM RESIDENT ASSOCIATE procedure are i n the results section. ELECTROLYTE (CHEM 4) Routine 06/30/2013 6:13 Resu lts for this PANEL, S/P AM RESIDENT ASSOCIATE procedure are i n the results section. TACROLIMUS LEVEL, B Routine 06/30/2013 6:13 Resul ts for this AM RESIDENT ASSOCIATE procedure are i n the results section. CBC WITH DIFFERENTIAL, B Routine 06/30/2013 6:13 Results for this AM RESIDENT ASSOCIATE procedure are i n the results section. ALANINE AMINOTRANSFERASE Routine 06/30/2013 6:13 Results for this (ALT), S/P AM RESIDENT ASSOCIATE procedure are i n the results section. ASPARTATE Routine 06/30/2013 6:13 Results for this AMINOTRANSFERASE (AST), AM RESIDENT ASSOCIATE proc edure are in S/P the results section. GLUCOSE POCT, B Routine 06/30/2013 6:09 Results f or this AM RESIDENT ASSOCIATE procedure are i n the results section. GLUCOSE POCT, B Routine 06/29/2013 9:46 Results f or this PM RESIDENT ASSOCIATE procedure are i n the results section. GLUCOSE POCT, B Routine 06/29/2013 4:27 Results f or this PM RESIDENT ASSOCIATE procedure are i n the results section. GLUCOSE POCT, B Routine 06/29/2013 11:41 Results for this AM RESIDENT ASSOCIATE procedure are i n the results section. GLUCOSE POCT, B Routine 06/29/2013 11:21 Results for this AM RESIDENT ASSOCIATE procedure are i n the results section. GLUCOSE POCT, B Routine 06/29/2013 10:54 Results for this AM RESIDENT ASSOCIATE procedure are i n the results section. GLUCOSE POCT, B Routine 06/29/2013 10:30 Results for this AM RESIDENT ASSOCIATE procedure are i n the results section. GLUCOSE POCT, B Routine 06/29/2013 6:48 Results f or this AM RESIDENT ASSOCIATE procedure are i n the results section. GLUCOSE POCT, B Routine 06/28/2013 9:54 Results f or this PM RESIDENT ASSOCIATE procedure are i n the results section. GLUCOSE POCT, B Routine 06/28/2013 6:24 Results f or this PM RESIDENT ASSOCIATE procedure are i n the results section. documented in this encounter Results (ABNORMAL) Protein, Total (07/04/2013 6:58 AM RESIDENT ASSOCIATE) [facility] gist Method Time Signature Total Protein, 6.0 (L) 6.3 - 7.9 [facility] S G/DL LABORATORIES - [facility] Specimen Anatomical Collection Method Collection Time Receive d Time (Source) Location / / Volume Laterality 07/04/2013 6:58 AM 4 6:58 RESIDENT ASSOCIATE AM RESIDENT ASSOCIATE Vanessa Parra APRN, C.N.P. LAB BLOOD ADD-ON Performing Organization Address City/[facility] Phon e Number [facility] LABORATORIES - [address] [place] [address] 05 [facility] Phosphorus Inorganic (07/04/2013 6:58 AM RESIDENT ASSOCIATE) Analysis Performed At [facility] logist Time Signature Phosphorus 3.9 2.5 - 4.5 [facility] (Inorganic), S MG/DL LABORATORIES - [facility] Specimen Anatomical Collection Method Collection Time Receive d Time (Source) Location / / Volume Laterality 07/04/2013 6:58 AM 4 6:58 RESIDENT ASSOCIATE AM RESIDENT ASSOCIATE Vanessa Parra APRN, C.N.P. LAB BLOOD ADD-ON Performing Organization Address City/[facility] Phon e Number [facility] LABORATORIES - [address] [place] [address] 05 [facility] (ABNORMAL) Creatinine with Estimated GFR (MDRD) (07/04/2013 6:58 AM RESIDENT ASSOCIATE) [facility] gist Method Time Signature Creatinine 1.5 (H) 0.8 - 1.3 [facility] MG/DL LABORATORIES - [facility] eGFR 48 (L) >60 [facility] Non-Black/Afric ML/MIN/BS LABORATORIES - an [place] A [facility] eGFR-Black/Afri 58 (L) >60 [facility] can [place] ML/MIN/BS LABORATORIES - A [facility] Specimen Anatomical Collection Method Collection Time Receive d Time (Source) Location / / Volume Laterality 07/04/2013 6:58 AM 4 6:58 RESIDENT ASSOCIATE AM RESIDENT ASSOCIATE Vanessa Parra APRN, C.N.P. LAB BLOOD ADD-ON Performing Organization Address City/State/ZIP Code Phon e Number [facility] - [address] [place], [place] [address] [facility] HLA Class I SAB Antibody Screen (07/04/2013 6:58 AM RESIDENT ASSOCIATE) [facility] gist Method Time Signature SAB A . [facility] Specificity LABORATORIES - [facility] Comment: 29[388], 68[339] ? Format: Serologic equivalent/abbreviated specificity ? [Normalized Value] shown in decreasing o rder. Note: A ? serologic equivalent/abbreviated specifi city displayed ? multiple times could indicate different alleles. ? SAB B Specificity . [facility] Comment: 57[4656], 57[4172], 58[3230], 75[376], 6 7[327] ? Format: Serologic equivalent/abbreviated specificity ? [Normalized Value] shown in decreasing o rder. Note: A ? serologic equivalent/abbreviated specifi city displayed ? multiple times could indicate different alleles. ? Class I SAB Overall Positive Not Applicable [facility] LABORATORIES - Result [facility] Class I SAB cPRA 19 [facility] L [facility] - [facility] Comment: This PRA is a [facility] Tiss ue Typing ? Laboratory calculated PRA. PRA is based on the antigen ? frequency of the Tissue Typing patient a nd donor ? population. ??PRA reflects all antibodie s with a normalized ? value (MFI) above 300. ? SAB C Specificity NONE [facility] Comment: Method: Luminex Flow Cytometry Specimen Anatomical Collection Method Collection Time Receive d Time (Source) Location / / Volume Laterality 07/04/2013 6:58 AM 4 6:58 RESIDENT ASSOCIATE AM RESIDENT ASSOCIATE Vanessa Parra APRN, C.N.P. LAB HLA ORDERABLES Performing Organization Address City/[facility] Phon e Number [facility] - [address] (ABNORMAL) BUN (Blood Urea Nitrogen) (07/04/2013 6:58 AM RESIDENT ASSOCIATE) Analysis Performed At Patho logist Time Signature BUN (Blood 36 (H) 8 - 24 [facility] Urea MG/DL LABORATORIES - Nitrogen), S [facility] Specimen Anatomical Collection Method Collection Time Receive d Time (Source) Location / / Volume Laterality 07/04/2013 6:58 AM 4 6:58 RESIDENT ASSOCIATE AM RESIDENT ASSOCIATE Vanessa Parra APRN, C.N.P. LAB BLOOD ADD-ON Performing Organization Address City/[facility]/ZIP Code Phon e Number [facility] - [address] (ABNORMAL) Alkaline Phosphatase (07/04/2013 6:58 AM RESIDENT ASSOCIATE) Patholo gist Method Time Signature Alkaline 134 (H) 45 - 115 [facility] Phosphatase, S U/L [facility] Specimen Anatomical Collection Method Collection Time Receive d Time (Source) Location / / Volume Laterality 07/04/2013 6:58 AM 4 6:58 RESIDENT ASSOCIATE AM RESIDENT ASSOCIATE Vanessa Parra APRN, C.N.P. LAB BLOOD ADD-ON Performing Organization Address City/[facility]/ZIP Code Phon e Number [facility] - [address] [place] [address] 05 [facility] (ABNORMAL) Glucose, Fasting (07/04/2013 6:58 AM RESIDENT ASSOCIATE) P athologist Signature Last Intake 7 HR [facility] Glucose, P 104 (H) 70 - 100 [facility] MG/DL [facility] Specimen Anatomical Collection Method Collection Time Receive d Time (Source) Location / / Volume Laterality 07/04/2013 6:58 AM 4 6:58 RESIDENT ASSOCIATE AM RESIDENT ASSOCIATE Vanessa Parra APRN, C.N.P. LAB BLOOD NON ADD-ON Performing Organization Address City/[facility]/ZIP Code Phon e Number [facility] - [address] [address] 05 [facility] Potassium (07/04/2013 6:58 AM RESIDENT ASSOCIATE) P athologist Signature Potassium, S 5.0 3.6 - 5.2 [facility] MMOL/L [facility] Specimen Anatomical Collection Method Collection Time Receive d Time (Source) Location / / Volume Laterality 07/04/2013 6:58 AM 4 6:58 RESIDENT ASSOCIATE AM RESIDENT ASSOCIATE Vanessa Parra APRN, C.N.P. LAB BLOOD ADD-ON Performing Organization Address City/[facility]/ZIP Code Phon e Number [facility] - [address] [place] [address] 05 [facility] AST (Aspartate Aminotransferase) (07/04/2013 6:58 AM RESIDENT ASSOCIATE) P athologist Signature AST, Total, S 16 8 - 48 U/L [facility] Specimen Anatomical Collection Method Collection Time Receive d Time (Source) Location / / Volume Laterality 07/04/2013 6:58 AM 4 6:58 RESIDENT ASSOCIATE AM RESIDENT ASSOCIATE Vanessa Parra APRN, C.N.P. LAB BLOOD ADD-ON Performing Organization Address City/[facility]/ZIP Code Phon e Number [facility] - [address] [address] 05 [facility] (ABNORMAL) Bilirubin, Total (07/04/2013 6:58 AM RESIDENT ASSOCIATE) Patholo gist Method Time Signature Bilirubin, 1.6 (H) 0.1 - 1.0 [facility] Total, S MG/DL [facility] Specimen Anatomical Collection Method Collection Time Receive d Time (Source) Location / / Volume Laterality 07/04/2013 6:58 AM 4 6:58 RESIDENT ASSOCIATE AM RESIDENT ASSOCIATE Vanessa Parra APRN C.N.P. LAB BLOOD ADD-ON Performing Organization Address City/State/ZIP Code Phon e Number [facility] LABORATORIES - [address] [address] 05 [facility] APTT (Activated Partial Thromboplastin Time) (07/04/2013 6:58 AM RESIDENT ASSOCIATE) athologist Signature APTT, P 28 28 - 38 SEC [facility] Specimen Anatomical Collection Method Collection Time Receive d Time (Source) Location / / Volume Laterality 07/04/2013 6:58 AM 4 6:58 RESIDENT ASSOCIATE AM RESIDENT ASSOCIATE Arley [place] APRN.N.P. LAB BLOOD ADD-ON Performing Organization Address City/[facility]/ZIP Code Phon e Number [facility] - [address] (ABNORMAL) Bilirubin, Direct (07/04/2013 6:58 AM RESIDENT ASSOCIATE) [facility] Method Time Signature Bilirubin, 1.0 (H) 0.0 - 0.3 [facility] Direct, S MG/DL [facility] Specimen Anatomical Collection Method Collection Time Receive d Time (Source) Location / / Volume Laterality 07/04/2013 6:58 AM 4 6:58 RESIDENT ASSOCIATE AM RESIDENT ASSOCIATE Vanessa Parra APRN, C.N.P. LAB BLOOD ADD-ON Performing Organization Address City/State/ZIP Code Phon e Number [facility] - [address] [place] [address] 05 [facility] Sodium (07/04/2013 6:58 AM RESIDENT ASSOCIATE) athologist Signature Sodium, S 138 135 - 145 [facility] MMOL/L [facility] Specimen Anatomical Collection Method Collection Time Receive d Time (Source) Location / / Volume Laterality 07/04/2013 6:58 AM 4 6:58 RESIDENT ASSOCIATE AM RESIDENT ASSOCIATE Vaenssa Parra APRN, C.N.P. LAB BLOOD ADD-ON Performing Organization Address City/State/ZIP Code Phon e Number [facility] - [address] [place] [address] 05 [facility] HLA Class II SAB Antibody Screen (07/04/2013 6:58 AM RESIDENT ASSOCIATE) [facility] gist Method Time Signature Class II SAB Positive Not Applicable [facility] Overall LABORATORIES - Result [facility] Class II SAB 21 [facility] cPRA LABORATORIES - [facility] Comment: This PRA is a [facility] Tiss ue Typing ? Laboratory calculated PRA. PRA is based on the antigen ? frequency of the Tissue Typing patient a nd donor ? population. ??PRA reflects all antibodie s with a normalized ? value (MFI) above 300. ? SAB DQB1 Specificity NONE [facility] SAB DPB1 Specificity . [facility] Comment: 4[358], 3[320] ? Format: Serologic equivalent/abbreviated specificity ? [Normalized Value] shown in decreasing o rder. Note: A ? serologic equivalent/abbreviated specifi city displayed ? multiple times could indicate different alleles. ? Method: Luminex Flow Cytometry ? SAB DRB1 Specificity . [facility] Comment: 4[376] ? Format: Serologic equivalent/abbreviated specificity ? [Normalized Value] shown in decreasing o rder. Note: A ? serologic equivalent/abbreviated specifi city displayed ? multiple times could indicate different alleles. ? SAB [id number] Specificity NONE [facility]IES - [facility] Specimen Anatomical Collection Method Collection Time Receive d Time (Source) Location / / Volume Laterality 07/04/2013 6:58 AM 4 6:58 RESIDENT ASSOCIATE AM RESIDENT ASSOCIATE Vanessa Parra APRN, C.N.P. LAB HLA ORDERABLES Performing Organization Address City/State/ZIP Code Phon e Number [facility] LABORATORIES - [address] [place], [place] [address] [facility] (ABNORMAL) CBC with Differential (07/04/2013 6:58 AM RESIDENT ASSOCIATE) [facility] gist Method Time Signature Erythrocytes 3.05 (L) 4.32 - [facility] 5.72 LABORATORIES - X10(12)/L [facility] MCV 96.1 (H) 81.2 - [facility] 95.1 FL [facility] RBC Distrib 18.9 (H) 11.8 - [facility] Width 15.6 % [facility] Platelet Count 190 150 - 450 [facility] X10(9)/L [facility] Lymphocytes 1.31 0.90 - [facility] 2.90 LABORATORIES - X10(9)/L [facility] Monocytes 0.69 0.30 - [facility] 0.90 LABORATORIES - X10(9)/L [facility] Hemoglobin 9.5 (L) 13.5 - [facility] 17.5 G/DL [facility] Hematocrit 29.3 (L) 38.8 - [facility] 50.0 % [facility] - [facility] Leukocytes 4.8 3.5 - [facility] 10.5 LABORATORIES - X10(9)/L [facility] Neutrophils 2.63 1.70 - [facility] 7.00 LABORATORIES - X10(9)/L [facility] Eosinophils 0.12 0.05 - [facility] 0.50 LABORATORIES - X10(9)/L [facility] Basophils 0.02 0.00 - [facility] 0.30 LABORATORIES - X10(9)/L [facility] Specimen Anatomical Collection Method Collection Time Receive d Time (Source) Location / / Volume Laterality 07/04/2013 6:58 AM 4 6:58 RESIDENT ASSOCIATE AM RESIDENT ASSOCIATE Vanessa Parra APRN, Arley.N.P. LAB BLOOD ADD-ON Performing Organization Address City/[facility]/ZIP Code Phon e Number [facility] LABORATORIES - [address] [address] 05 [facility] PT (Prothrombin Time) with INR (07/04/2013 6:58 AM RESIDENT ASSOCIATE) [facility] Method Time Signature Prothrombin 11.2 9.5 - 13.8 [facility] Time, P SEC LABORATORIES - [facility] INR 0.9 0.8 - 1.2 [facility] LABORATORIES - [facility] Specimen Anatomical Collection Method Collection Time Receive d Time (Source) Location / / Volume Laterality 07/04/2013 6:58 AM 4 6:58 RESIDENT ASSOCIATE AM RESIDENT ASSOCIATE Vanessa Parra APRN, Arley.N.P. LAB BLOOD ADD-ON Performing Organization Address City/[facility]/ZIP Code Phon e Number [facility] LABORATORIES - [address] [address] 05 [facility] Bicarbonate (07/04/2013 6:58 AM RESIDENT ASSOCIATE) P athologist Signature HX 26 22 - 29 [facility] Bicarbonate, MMOL/L LABORATORIES - P/S [facility] Specimen Anatomical Collection Method Collection Time Receive d Time (Source) Location / / Volume Laterality 07/04/2013 6:58 AM 4 6:58 RESIDENT ASSOCIATE AM RESIDENT ASSOCIATE Vanessa Parra APRN, C.N.P. LAB BLOOD ADD-ON Performing Organization Address City/State/ZIP Code Phon e Number [facility] LABORATORIES - [address] [address] 05 [facility] ALT (Alanine Aminotransferase) (07/04/2013 6:58 AM RESIDENT ASSOCIATE) [facility] Method Time Signature Alanine 24 7 - 55 [facility] Aminotransferase U/L LABORATORIES - (ALT), S [facility] Specimen Anatomical Collection Method Collection Time Receive d Time (Source) Location / / Volume Laterality 07/04/2013 6:58 AM 4 6:58 RESIDENT ASSOCIATE AM RESIDENT ASSOCIATE Arley Canada APRN.N.P. LAB BLOOD ADD-ON Performing Organization Address City/State/ZIP Code Phon e Number [facility]IES - [address] [address] 05 [facility] Chloride (07/04/2013 6:58 AM RESIDENT ASSOCIATE) P athologist Signature Chloride, S 102 100 - 108 [facility] MMOL/L LABORATORIES - [facility] Specimen Anatomical Collection Method Collection Time Receive d Time (Source) Location / / Volume Laterality 07/04/2013 6:58 AM 4 6:58 RESIDENT ASSOCIATE AM RESIDENT ASSOCIATE Janette Canada APRNN.Saeed LAB BLOOD ADD-ON Performing Organization Address City/[facility]/ZIP Code Phon e Number [facility]IES - [address] [address] 05 [facility] Albumin (07/04/2013 6:58 AM RESIDENT ASSOCIATE) P athologist Signature Albumin, S 3.6 3.5 - 5.0 [facility] G/DL LABORATORIES [facility] Specimen Anatomical Collection Method Collection Time Receive d Time (Source) Location / / Volume Laterality 07/04/2013 6:58 AM 4 6:58 RESIDENT ASSOCIATE AM RESIDENT ASSOCIATE Janette Canada APRNNJuan Miguel LAB BLOOD ADD-ON Performing Organization Address City/[facility]/ZIP Code Phon e Number [facility]IES - [address] [address] 05 [facility] (ABNORMAL) Tacrolimus Level (07/04/2013 6:58 AM RESIDENT ASSOCIATE) [facility] Method Time Signature Tacrolimus, B 4.4 (L) 5.0-15.0 [facility] (Trough) LABORATORIES - NG/ML [facility] Tacrolimus . [facility] Blood Date of LABORATORIES - Last Dose [facility] Comment: Not Specified Tacrolimus Time of Last Dose . [facility] LABORATORIES - [facility] Comment: Not Specified Tacrolimus Blood Dose, mg . MG [facility] LABORATORIES - [facility] Comment: Not Specified Specimen Anatomical Collection Method Collection Time Receive d Time (Source) Location / / Volume Laterality 07/04/2013 6:58 AM 4 6:58 RESIDENT ASSOCIATE AM RESIDENT ASSOCIATE Arley Canada APRN.N.PDemetrius LAB BLOOD NON ADD-ON Performing Organization Address City/State/ZIP Code Phon e Number [facility]ATORIES - [address] [place], [place] [address] [facility] Lipid Panel (07/04/2013 6:58 AM RESIDENT ASSOCIATE) [facility] gist Method Time Signature Cholesterol, 57 SeeComment [facility] HDL, S MG/DL LABORATORIES - [facility] Comment: Reference Range: ? NCEP guidelines ? (ages 18y and up) ? Low: <40 ? Normal: 40-59 ? High : > or =60 ? Calculated LDL 115 SeeComment MG/DL [facility] [place] [place] Comment: Reference Range: ? NCEP guidelines ? (ages 18y and up) ? Optimal: <100 ? Near Optimal: 100-129 ? Borderline high: 130-159 ? High: 160-189 ? Very high: > or =190 ? Cholesterol, Non-HDL, 132 SeeComment MG/DL [facility] LABORATORIES - Calculated [facility] Comment: Reference Range: ? NCEP guidelines ? Desirable: <130 ? Borderline high: 130-159 ? High: 160-189 ? Very high: > or =190 ? Cholesterol, Total 189 SeeComment MG/DL [facility] [place] [facility] [place] Comment: Reference Range: ? NCEP guidelines ? [...] Volume Laterality 07/04/2013 6:58 AM 4 6:58 RESIDENT ASSOCIATE AM RESIDENT ASSOCIATE Vanessa Parra APRN, C.N.P. LAB BLOOD ADD-ON Performing Organization Address City/[facility]/ZIP Code Phon e Number [facility]ATORIES - [address] [address] 05 [facility] Glucose, POCT (07/02/2013 11:40 AM RESIDENT ASSOCIATE) [facility] gist Method Time Signature Glucose, 107 70 - 140 [facility] POCT, B MG/DL LABORATORIES - [facility] Sample Site, Capillary [facility] Blood Gas, LABORATORIES - POCT [facility] Last Intake 2-3 hours [facility] - [facility] Specimen Anatomical Collection Method Collection Time Receive d Time (Source) Location / / Volume Laterality 07/02/2013 11:40 07/02/2013 AM RESIDENT ASSOCIATE 11:40 AM RESIDENT ASSOCIATE Historical Provider LAB POCT ORDERABLES-MANUAL Performing Organization Address City/[facility] Phon e Number [facility]ATORIES - [address] [address] 05 [facility] Glucose, POCT (07/02/2013 6:44 AM RESIDENT ASSOCIATE) [facility] Method Time Signature Last Intake > 4 hours [facility] - [facility] Glucose, 98 70 - 140 [facility] POCT, B MG/DL LABORATORIES - [facility] Sample Site, Capillary [facility] Blood Gas, LABORATORIES - POCT [facility] Specimen Anatomical Collection Method Collection Time Receive d Time (Source) Location / / Volume Laterality 07/02/2013 6:44 AM 4 6:44 RESIDENT ASSOCIATE AM RESIDENT ASSOCIATE Historical Provider LAB POCT ORDERABLES-MANUAL Performing Organization Address City/[facility]/ZIP Code Phon e Number [facility]ATORIES - [address] [place], [place] [address] 05 [facility] ALT (Alanine Aminotransferase) (07/02/2013 6:09 AM RESIDENT ASSOCIATE) [facility] gist Method Time Signature Alanine 22 7 - 55 [facility] Aminotransferase U/L LABORATORIES - (ALT), S [facility] Specimen Anatomical Collection Method Collection Time Receive d Time (Source) Location / / Volume Laterality 07/02/2013 6:09 AM 4 6:09 RESIDENT ASSOCIATE AM RESIDENT ASSOCIATE Historical Provider LAB BLOOD ADD-ON Performing Organization Address City/State/ZIP Code Phon e Number [facility]ATORIES - [address] [place], [place] [address] [facility] (ABNORMAL) CBC with Differential (07/02/2013 6:09 AM RESIDENT ASSOCIATE) [facility] Method Time Signature Hemoglobin 8.6 (L) 13.5 - [facility] 17.5 G/DL LABORATORIES - [facility] Hematocrit 26.0 (L) 38.8 - [facility] 50.0 % LABORATORIES - [facility] Lymphocytes 1.45 0.90 - [facility] 2.90 LABORATORIES - X10(9)/L [facility] Monocytes 0.60 0.30 - [facility] 0.90 LABORATORIES - X10(9)/L [facility] Erythrocytes 2.72 (L) 4.32 - [facility] 5.72 LABORATORIES - X10(12)/L [facility] MCV 95.6 (H) 81.2 - [facility] 95.1 FL LABORATORIES - [facility] RBC Distrib 18.8 (H) 11.8 - [facility] Width 15.6 % LABORATORIES - [facility] Platelet Count 183 150 - 450 [facility] X10(9)/L LABORATORIES - [facility] Leukocytes 5.2 3.5 - [facility] 10.5 LABORATORIES - X10(9)/L [facility] Neutrophils 3.06 1.70 - [facility] 7.00 LABORATORIES - X10(9)/L [facility] Eosinophils 0.07 0.05 - [facility] 0.50 LABORATORIES - X10(9)/L [facility] Basophils 0.02 0.00 - [facility] 0.30 LABORATORIES - X10(9)/L [facility] Specimen Anatomical Collection Method Collection Time Receive d Time (Source) Location / / Volume Laterality 07/02/2013 6:09 AM 4 6:09 RESIDENT ASSOCIATE AM RESIDENT ASSOCIATE Historical Provider LAB BLOOD ADD-ON Performing Organization Address City/State/ZIP Code Phon e Number [facility] LABORATORIES - [address] [place], [place] [address] [facility] (ABNORMAL) Tacrolimus Level (07/02/2013 6:09 AM RESIDENT ASSOCIATE) [facility] Method Time Signature Tacrolimus, B 4.8 (L) 5.0-15.0 [facility] (Trough) LABORATORIES - NG/ML [facility] Tacrolimus . [facility] Blood Date of LABORATORIES - Last Dose [facility] Comment: Not Specified Tacrolimus Time of Last Dose . M [facility] [place] Comment: Not Specified Tacrolimus Blood Dose, mg . MG [facility] Comment: Not Specified Specimen Anatomical Collection Method Collection Time Receive d Time (Source) Location / / Volume Laterality 07/02/2013 6:09 AM 4 6:09 RESIDENT ASSOCIATE AM RESIDENT ASSOCIATE Historical Provider LAB BLOOD NON ADD-ON Performing Organization Address [facility] Phon e Number [facility] LABORATORIES - [address] AST (Aspartate Aminotransferase) (07/02/2013 6:09 AM RESIDENT ASSOCIATE) P athologist Signature AST, Total, S 19 8 - 48 U/L [facility] Specimen Anatomical Collection Method Collection Time Receive d Time (Source) Location / / Volume Laterality 07/02/2013 6:09 AM 4 6:09 RESIDENT ASSOCIATE AM RESIDENT ASSOCIATE Historical Provider LAB BLOOD ADD-ON Performing Organization Address [facility] Phon e Number [facility] - [address] (ABNORMAL) Bilirubin, Total (07/02/2013 6:09 AM RESIDENT ASSOCIATE) Patholo gist Method Time Signature Bilirubin, 1.4 (H) 0.1 - 1.0 [facility] Total, S MG/DL [facility] Specimen Anatomical Collection Method Collection Time Receive d Time (Source) Location / / Volume Laterality 07/02/2013 6:09 AM 4 6:09 RESIDENT ASSOCIATE AM RESIDENT ASSOCIATE Historical Provider LAB BLOOD ADD-ON Performing Organization Address City/[facility] Phon e Number [facility] LABORATORIES - [address] [place], [place] [address] 05 [facility] Alkaline Phosphatase (07/02/2013 6:09 AM RESIDENT ASSOCIATE) P athologist Signature Alkaline 112 45 - 115 [facility] Phosphatase, S U/L [facility] Specimen Anatomical Collection Method Collection Time Receive d Time (Source) Location / / Volume Laterality 07/02/2013 6:09 AM 4 6:09 RESIDENT ASSOCIATE AM RESIDENT ASSOCIATE Historical Provider LAB BLOOD ADD-ON Performing Organization Address City/[facility] Phon e Number [facility] LABORATORIES - [address] [place] (ABNORMAL) Electrolyte (Chem 4) Panel (07/02/2013 6:09 AM RESIDENT ASSOCIATE) [facility] Method Time Signature Sodium, S 137 135 - 145 [facility] MMOL/L LABORATORIES - [facility] Potassium, S 5.0 3.6 - 5.2 [facility] MMOL/L LABORATORIES - [facility] eGFR-Black/Afri >60 >60 [facility] can Macedonian ML/MIN/BS LABORATORIES - A [facility] BUN (Blood Urea 40 (H) 8 - 24 [facility] Nitrogen), S MG/DL LABORATORIES - [facility] Chloride, S 103 100 - 108 [facility] MMOL/L LABORATORIES - [facility] HX Bicarbonate, 25 22 - 29 [facility] P/S MMOL/L LABORATORIES - [facility] Creatinine 1.4 (H) 0.8 - 1.3 [facility] MG/DL LABORATORIES - [facility] eGFR 52 (L) >60 [facility] Non-Black/Afric ML/MIN/BS LABORATORIES - an Macedonian A [facility] Anion Gap 9 7 - 15 [facility] LABORATORIES - [facility] Glucose, S 98 70 - 140 [facility] MG/DL LABORATORIES - [facility] Specimen Anatomical Collection Method Collection Time Receive d Time (Source) Location / / Volume Laterality 07/02/2013 6:09 AM 4 6:09 RESIDENT ASSOCIATE AM RESIDENT ASSOCIATE Historical Provider LAB BLOOD ADD-ON Performing Organization Address City/State/ZIP Code Phon e Number [facility] LABORATORIES - [address] [address] 05 [facility] (ABNORMAL) Glucose, POCT (07/01/2013 9:15 PM RESIDENT ASSOCIATE) [facility] Method Time Signature Last Intake > 4 hours [facility] LABORATORIES - [facility] Glucose, 152 (H) 70 - 140 [facility] POCT, B MG/DL LABORATORIES - [facility] Sample Site, Capillary [facility] Blood Gas, LABORATORIES - POCT [facility] Specimen Anatomical Collection Method Collection Time Receive d Time (Source) Location / / Volume Laterality 07/01/2013 9:15 PM 4 9:15 RESIDENT ASSOCIATE PM RESIDENT ASSOCIATE Historical Provider LAB POCT ORDERABLES-MANUAL Performing Organization Address City/[facility] Phon e Number [facility] LABORATORIES - [address] [address] 05 [facility] (ABNORMAL) Glucose, POCT (07/01/2013 5:16 PM RESIDENT ASSOCIATE) [facility] Method Time Signature Glucose, POCT, 192 (H) 70 - 140 [facility] B MG/DL LABORATORIES - [facility] Specimen Anatomical Collection Method Collection Time Receive d Time (Source) Location / / Volume Laterality 07/01/2013 5:16 PM 4 5:16 RESIDENT ASSOCIATE PM RESIDENT ASSOCIATE Historical Provider LAB POCT ORDERABLES-MANUAL Performing Organization Address City/[facility]/ZIP Code Phon e Number [facility] LABORATORIES - [address] [address] 05 [facility] (ABNORMAL) Glucose, POCT (07/01/2013 11:27 AM RESIDENT ASSOCIATE) [facility] Method Time Signature Glucose, 152 (H) 70 - 140 [facility] POCT, B MG/DL LABORATORIES - [facility] Sample Site, Capillary [facility] Blood Gas, LABORATORIES - POCT [facility] Last Intake 1-2 hours [facility] Specimen Anatomical Collection Method Collection Time Receive d Time (Source) Location / / Volume Laterality 07/01/2013 11:27 07/01/2013 AM RESIDENT ASSOCIATE 11:27 AM RESIDENT ASSOCIATE Historical Provider LAB POCT ORDERABLES-MANUAL Performing Organization Address City/[facility]/ZIP [facility] Phon e Number [facility] LABORATORIES - [address] [address] 05 [facility] Glucose, POCT (07/01/2013 6:30 AM RESIDENT ASSOCIATE) [facility] Method Time Signature Last Intake > 4 hours [facility] Glucose, 94 70 - 140 [facility] POCT, B MG/DL LABORATORIES - [facility] Sample Site, Capillary [facility] Blood Gas, LABORATORIES - POCT [facility] Specimen Anatomical Collection Method Collection Time Receive d Time (Source) Location / / Volume Laterality 07/01/2013 6:30 AM 4 6:30 RESIDENT ASSOCIATE AM RESIDENT ASSOCIATE Historical Provider LAB POCT ORDERABLES-MANUAL Performing Organization Address City/[facility] Phon e Number [facility] LABORATORIES - [address] [address] 05 [facility] (ABNORMAL) Glucose, POCT (06/30/2013 8:54 PM RESIDENT ASSOCIATE) [facility] Method Time Signature Last Intake 2-3 hours [facility] Glucose, 169 (H) 70 - 140 [facility] POCT, B MG/DL LABORATORIES - [facility] Sample Site, Capillary [facility] Blood Gas, LABORATORIES - POCT [facility] Specimen Anatomical Collection Method Collection Time Receive d Time (Source) Location / / Volume Laterality 06/30/2013 8:54 PM 4 8:54 RESIDENT ASSOCIATE PM RESIDENT ASSOCIATE Historical Provider LAB POCT ORDERABLES-MANUAL Performing Organization Address City/[facility]/ZIP Code Phon e Number [facility] LABORATORIES - [address] [address] 05 [facility] (ABNORMAL) Glucose, POCT (06/30/2013 4:31 PM RESIDENT ASSOCIATE) Patholo gist Method Time Signature Glucose, POCT, 198 (H) 70 - 140 [facility] B MG/DL LABORATORIES - [facility] Specimen Anatomical Collection Method Collection Time Receive d Time (Source) Location / / Volume Laterality 06/30/2013 4:31 PM 4 4:31 RESIDENT ASSOCIATE PM RESIDENT ASSOCIATE Historical Provider LAB POCT ORDERABLES-MANUAL Performing Organization Address City/[facility] Phon e Number [facility] LABORATORIES - [address] [address] 05 [facility] (ABNORMAL) Glucose, POCT (06/30/2013 3:27 PM RESIDENT ASSOCIATE) Patholo gist Method Time Signature Last Intake 1-2 hours [facility] Glucose, 253 (H) 70 - 140 [facility] POCT, B MG/DL LABORATORIES - [facility] Sample Site, Capillary [facility] Blood Gas, LABORATORIES - POCT [facility] Specimen Anatomical Collection Method Collection Time Receive d Time (Source) Location / / Volume Laterality 06/30/2013 3:27 PM 4 3:27 RESIDENT ASSOCIATE PM RESIDENT ASSOCIATE Historical Provider LAB POCT ORDERABLES-MANUAL Performing Organization Address City/[facility] Phon e Number [facility] LABORATORIES - [address] AST (Aspartate Aminotransferase) (06/30/2013 6:13 AM RESIDENT ASSOCIATE) P athologist Signature AST, Total, S 20 8 - 48 U/L [facility] Specimen Anatomical Collection Method Collection Time Receive d Time (Source) Location / / Volume Laterality 06/30/2013 6:13 AM 4 6:13 RESIDENT ASSOCIATE AM RESIDENT ASSOCIATE Fadumo Morgan M.D. LAB BLOOD ADD-ON Performing Organization Address City/[facility]/ZIP Code Phon e Number [facility] LABORATORIES - [address] [address] 05 [facility] (ABNORMAL) Tacrolimus Level (06/30/2013 6:13 AM RESIDENT ASSOCIATE) Analysis Performed At Path logist Time Signature Tacrolimus Time . [facility] of Last Dose LABORATORIES - [facility] Comment: Not Specified Tacrolimus Blood Dose, mg . MG [facility] LABORATORIES - [facility] Comment: Not Specified Tacrolimus, B 3.6 (L) 5.0-15.0 (Trough) [facility] NG/ML - [facility] Tacrolimus Blood Date of . [facility] Last Dose - [facility] Comment: Not Specified Specimen Anatomical Collection Method Collection Time Receive d Time (Source) Location / / Volume Laterality 06/30/2013 6:13 AM 4 6:13 RESIDENT ASSOCIATE AM RESIDENT ASSOCIATE Fadumo Morgan M.D. LAB BLOOD NON ADD-ON Performing Organization Address City/[facility]/ZIP Code Phon e Number [facility] LABORATORIES - [address] [address] 05 [facility] ALT (Alanine Aminotransferase) (06/30/2013 6:13 AM RESIDENT ASSOCIATE) [facility] gist Method Time Signature Alanine 20 7 - 55 [facility] Aminotransferase U/L LABORATORIES - (ALT), S [facility] Specimen Anatomical Collection Method Collection Time Receive d Time (Source) Location / / Volume Laterality 06/30/2013 6:13 AM 4 6:13 RESIDENT ASSOCIATE AM RESIDENT ASSOCIATE Fadumo Morgna M.D. LAB BLOOD ADD-ON Performing Organization Address City/[facility]/ZIP Code Phon e Number [facility] LABORATORIES - [address] [address] 05 [facility] (ABNORMAL) Electrolyte (Chem 4) Panel (06/30/2013 6:13 AM RESIDENT ASSOCIATE) [facility] gist Method Time Signature Sodium, S 137 135 - 145 [facility] MMOL/L LABORATORIES - [facility] Potassium, S 5.4 (H) 3.6 - 5.2 [facility] MMOL/L LABORATORIES - [facility] eGFR-Black/Afri >60 >60 [facility] can [place] ML/MIN/BS LABORATORIES - A [facility] BUN (Blood Urea 35 (H) 8 - 24 [facility] Nitrogen), S MG/DL LABORATORIES - [facility] Chloride, S 104 100 - 108 [facility] MMOL/L LABORATORIES - [facility] HX Bicarbonate, 22 22 - 29 [facility] P/S MMOL/L LABORATORIES - [facility] Creatinine 1.4 (H) 0.8 - 1.3 [facility] MG/DL LABORATORIES - [facility] eGFR 52 (L) >60 [facility] Non-Black/Afric ML/MIN/BS LABORATORIES - an Macedonian A [facility] Anion Gap 11 7 - 15 [facility] LABORATORIES - [facility] Glucose, S 90 70 - 140 [facility] MG/DL LABORATORIES - [facility] Specimen Anatomical Collection Method Collection Time Receive d Time (Source) Location / / Volume Laterality 06/30/2013 6:13 AM 4 6:13 RESIDENT ASSOCIATE AM RESIDENT ASSOCIATE Fadumo Morgan M.D. LAB BLOOD ADD-ON Performing Organization Address City/State/ZIP Code Phon e Number [facility] LABORATORIES - 200 [place], [place] [address] [facility] (ABNORMAL) CBC with Differential (06/30/2013 6:13 AM RESIDENT ASSOCIATE) [facility] gist Method Time Signature Erythrocytes 2.85 (L) 4.32 - [facility] 5.72 LABORATORIES - X10(12)/L [facility] MCV 95.4 (H) 81.2 - [facility] 95.1 [place] LABORATORIES - [facility] Lymphocytes 1.43 0.90 - [facility] 2.90 LABORATORIES - X10(9)/L [facility] Monocytes 0.75 0.30 - [facility] 0.90 LABORATORIES - X10(9)/L [facility] Hemoglobin 9.0 (L) 13.5 - [facility] 17.5 G/DL LABORATORIES - [facility] Hematocrit 27.2 (L) 38.8 - [facility] 50.0 % [facility] - [facility] RBC Distrib 18.8 (H) 11.8 - [facility] Width 15.6 % [facility] - [facility] Platelet Count 202 150 - 450 [facility] X10(9)/L LABORATORIES [facility] Leukocytes 5.7 3.5 - [facility] 10.5 LABORATORIES - X10(9)/L [facility] Neutrophils 3.38 1.70 - [facility] 7.00 LABORATORIES - X10(9)/L [facility] Eosinophils 0.09 0.05 - [facility] 0.50 LABORATORIES - X10(9)/L [facility] Basophils 0.04 0.00 - [facility] 0.30 LABORATORIES - X10(9)/L [facility] Specimen Anatomical Collection Method Collection Time Receive d Time (Source) Location / / Volume Laterality 06/30/2013 6:13 AM 4 6:13 RESIDENT ASSOCIATE AM RESIDENT ASSOCIATE Fdaumo Morgan M.D. LAB BLOOD ADD-ON Performing Organization Address City/State/ZIP Code Phon e Number [facility] LABORATORIES - [address] [place], [place] [address] [facility] Glucose, POCT (06/30/2013 6:09 AM RESIDENT ASSOCIATE) [facility] gist Method Time Signature Glucose, 92 70 - 140 [facility] POCT, B MG/DL LABORATORIES - [facility] Sample Site, Capillary [facility] Blood Gas, LABORATORIES - POCT [facility] Last Intake > 4 hours [facility] LABORATORIES - [facility] Specimen Anatomical Collection Method Collection Time Receive d Time (Source) Location / / Volume Laterality 06/30/2013 6:09 AM 4 6:09 RESIDENT ASSOCIATE AM RESIDENT ASSOCIATE Historical Provider LAB POCT ORDERABLES-MANUAL Performing Organization Address City/[facility]/ZIP Code Phon e Number [facility] LABORATORIES - [address] [place], [place] [address] [facility] (ABNORMAL) Glucose, POCT (06/29/2013 9:46 PM RESIDENT ASSOCIATE) [facility] invendo medical Method Time Signature Last Intake 1-2 hours [facility] LABORATORIES - [facility] Glucose, 222 (H) 70 - 140 [facility] POCT, B MG/DL LABORATORIES - [facility] Sample Site, Capillary [facility] Blood Gas, LABORATORIES - POCT [facility] Specimen Anatomical Collection Method Collection Time Receive d Time (Source) Location / / Volume Laterality 06/29/2013 9:46 PM 4 9:46 RESIDENT ASSOCIATE PM RESIDENT ASSOCIATE Historical Provider LAB POCT ORDERABLES-MANUAL Performing Organization Address City/[facility]/ZIP Code Phon e Number [facility] LABORATORIES - [address] [place], [place] [address] [facility] Glucose, POCT (06/29/2013 4:27 PM RESIDENT ASSOCIATE) Patholo gist Method Time Signature Last Intake 2-3 hours [facility] LABORATORIES - [facility] Glucose, 111 70 - 140 [facility] POCT, B MG/DL LABORATORIES - [facility] Sample Site, Capillary [facility] Blood Gas, LABORATORIES - POCT [facility] Specimen Anatomical Collection Method Collection Time Receive d Time (Source) Location / / Volume Laterality 06/29/2013 4:27 PM 4 4:27 RESIDENT ASSOCIATE PM RESIDENT ASSOCIATE Historical Provider LAB POCT ORDERABLES-MANUAL Performing Organization Address City/State/ZIP Code Phon e Number [facility] LABORATORIES - [address] [place], [place] [address] [facility] Glucose, POCT (06/29/2013 11:41 AM RESIDENT ASSOCIATE) [facility] Signature Glucose, 84 70 - 140 [facility] POCT, B MG/DL LABORATORIES - [facility] Sample Site, Capillary [facility] Blood Gas, LABORATORIES - POCT [facility] Last Intake 3-4 hours [facility] - [facility] Specimen Anatomical Collection Method Collection Time Receive d Time (Source) Location / / Volume Laterality 06/29/2013 11:41 06/29/2013 AM RESIDENT ASSOCIATE 11:41 AM RESIDENT ASSOCIATE Historical Provider LAB POCT ORDERABLES-MANUAL Performing Organization Address City/State/ZIP Code Phon e Number [facility] LABORATORIES - [address] [place], [place] [address] [facility] Glucose, POCT (06/29/2013 11:21 AM RESIDENT ASSOCIATE) [facility] Signature Glucose, 81 70 - 140 [facility] POCT, B MG/DL LABORATORIES - [facility] Sample Site, Capillary [facility] Blood Gas, LABORATORIES - POCT [facility] Specimen Anatomical Collection Method Collection Time Receive d Time (Source) Location / / Volume Laterality 06/29/2013 11:21 06/29/2013 AM RESIDENT ASSOCIATE 11:21 AM RESIDENT ASSOCIATE Historical Provider LAB POCT ORDERABLES-MANUAL Performing Organization Address City/[facility] Code Phon e Number [facility] LABORATORIES - [address] [place], [place] [address] [facility] (ABNORMAL) Glucose, POCT (06/29/2013 10:54 AM RESIDENT ASSOCIATE) [facility] Method [place] Signature Glucose, 68 (L) 70 - 140 [facility] POCT, B MG/DL LABORATORIES - [facility] Sample Site, Capillary [facility] Blood Gas, LABORATORIES - POCT [facility] Last Intake 2-3 hours [facility] LABORATORIES - [facility] Specimen Anatomical Collection Method Collection Time Receive d Time (Source) Location / / Volume Laterality 06/29/2013 10:54 06/29/2013 AM RESIDENT ASSOCIATE 10:54 AM RESIDENT ASSOCIATE Historical Provider LAB POCT ORDERABLES-MANUAL Performing Organization Address City/[facility]/ZIP Code Phon e Number [facility] LABORATORIES - [address] [place] [address] [facility] (ABNORMAL) Glucose, POCT (06/29/2013 10:30 AM RESIDENT ASSOCIATE) [facility] Method Time Signature Glucose, 58 (L) 70 - 140 [facility] POCT, B MG/DL LABORATORIES - [facility] Sample Site, Capillary [facility] Blood Gas, LABORATORIES - POCT [facility] Specimen Anatomical Collection Method Collection Time Receive d Time (Source) Location / / Volume Laterality 06/29/2013 10:30 06/29/2013 AM RESIDENT ASSOCIATE 10:30 AM RESIDENT ASSOCIATE Historical Provider LAB POCT ORDERABLES-MANUAL Performing Organization Address City/[facility]/ZIP Code Phon e Number [facility] LABORATORIES - [address] [place], [place] [address] [facility] (ABNORMAL) Glucose, POCT (06/29/2013 6:48 AM RESIDENT ASSOCIATE) [facility] Method Time Signature Glucose, 226 (H) 70 - 140 [facility] POCT, B MG/DL [facility] Sample Site, Capillary [facility] Blood Gas, LABORATORIES - POCT [facility] Last Intake 2-3 hours [facility] - [facility] Specimen Anatomical Collection Method Collection Time Receive d Time (Source) Location / / Volume Laterality 06/29/2013 6:48 AM 6:48 RESIDENT ASSOCIATE AM RESIDENT ASSOCIATE Historical Provider LAB POCT ORDERABLES-MANUAL Performing Organization Address City/[facility]/ZIP [facility] Phon e Number [facility] LABORATORIES - [address] [place] [address] [facility] Glucose, POCT (06/28/2013 9:54 PM RESIDENT ASSOCIATE) [facility] Method Time Signature Glucose, POCT, 129 70 - 140 [facility] B MG/DL LABORATORIES - [facility] Last Intake 2-3 hours [facility] Specimen Anatomical Collection Method Collection Time Receive d Time (Source) Location / / Volume Laterality 06/28/2013 9:54 PM 4 9:54 RESIDENT ASSOCIATE PM RESIDENT ASSOCIATE Historical Provider LAB POCT ORDERABLES-MANUAL Performing Organization Address City/State/ZIP Code Phon e Number [facility] LABORATORIES - [address] [place] [address] [facility] (ABNORMAL) Glucose, POCT (06/28/2013 6:24 PM RESIDENT ASSOCIATE) [facility] gist Method Time Signature Glucose, POCT, 312 (H) 70 - 140 [facility] B MG/DL LABORATORIES [facility] Last Intake 1-2 hours [facility] Specimen Anatomical Collection Method Collection Time Receive d Time (Source) Location / / Volume Laterality 06/28/2013 6:24 PM 4 6:24 RESIDENT ASSOCIATE PM RESIDENT ASSOCIATE Historical Provider LAB POCT ORDERABLES-MANUAL Performing Organization Address City/State/ZIP Code Phon e Number [facility] LABORATORIES - [address] [place] [address] [facility] documented in this encounter Visit Diagnoses Not on filedocumented in this encounter Additional Health Concerns Assessment Noted Time PHQ-9 Depression Total Score: 3 04/07/2013 9:47 AM CDT documented as of this encounter
--- OUTSIDE RECORDS SUMMARY | 2022-05-17 19:08 | XMS_ITS | Encounter Summary ---
:1955 Author Organization [facility] Address [address] [place] [address] Care Team Providers Name Role Phone Unavailable Primary Care Provider Unavailable Encounter Details Date Type Department Care Team Description 07/01/2013 Hospital Encounter HX RST PSYCH-R Guilherme Sommer M.D. 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 [address] [place] [phone] 05/23/2022 Clinical Admitting/Central Communication Scheduling 05/27/2022 Comprehensive Visit Orthopedic Surgery Markus Sams M.D., Ph.D. [address] [place] [address] [phone] 05/29/2022 Office Visit Otorhinolaryngology Dex Matta, RAMONA, C.N.P., M.S.N. [address] [place] [phone] 05/29/2022 Office Visit Otorhinolaryngology Nadeem Maradiaga, P.A.-C., M.S. [address] [place] [phone] 05/31/2022 Appointment Radiology Guilherme Matt, RASTA, P.Murtaza.Marie., M.S. [address] [place] [phone] 06/05/2022 Appointment Laboratory Medicine Angélica Granger P.A.-C. [address] [place] [phone] 06/19/2022 Appointment Laboratory Medicine Angélica Granger P.A.-C. [address] [place] [address] [phone] 07/03/2022 Appointment Laboratory Medicine Angélica Granger P.A.-C. [address] [place] [phone] 07/17/2022 Appointment Laboratory Medicine Angélica Granger P.A.-C. [address] [place] [address] [phone] 07/31/2022 Appointment Laboratory Medicine Angélica Granger P.A.-C. [address] [place] [phone] 08/14/2022 Appointment Laboratory Medicine Angélica Granger P.A.-C. [address] [place] [address] [phone] 08/28/2022 Appointment Laboratory Medicine Angélica Granger P.A.-C. 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
--- OUTSIDE RECORDS SUMMARY | 2022-05-17 19:08 | XMS_ITS | Encounter Summary ---
:1955 Author Organization [facility] Address [address] [place] [address] Care Team Providers Name Role Phone Unavailable [...] Date Recorded Male 05/16/2020 4:27 PM [employer] documented as of this encounter Medications at [...] Angélica Granger P.A.-C. [address] [place] [phone] 05/23/2022 Clinical Admitting/Central Communication Scheduling 05/27/2022 Comprehensive Visit Orthopedic Surgery Markus Sams M.D., Ph.D. [address] [place] [phone] 05/29/2022 Office Visit Otorhinolaryngology Dex Matta APRN, C.N.P., M.S.N. [address] [place] [address] [phone] 05/29/2022 Office Visit Otorhinolaryngology Nadeem Maradiaga, P.A.-Arley., M.S. [address] [place] [phone] 05/31/2022 Appointment Radiology Guilherme Matt MPAS, P.Murtaza.-Arley., M.S. [address] [place] [phone] 06/05/2022 Appointment Laboratory Medicine Angélica Granger P.A.-C. [address] [place] [phone] 06/19/2022 Appointment Laboratory Medicine Angélica Granger P.A.-C. [address] [place] [phone] 07/03/2022 Appointment Laboratory Medicine Angélica Granger P.A.-C. [address] [place] [phone] 07/17/2022 Appointment Laboratory Medicine Angélica Granger P.A.-C. [address] [place] [phone] 07/31/2022 Appointment Laboratory Medicine Angélica Granger P.A.-C. [address] [place] [phone] 08/14/2022 Appointment Laboratory Medicine Angélica Granger P.A.-C. [address] [place] [phone] 08/28/2022 Appointment Laboratory Medicine Angélica Granger P.A.-C. [address] [place] [phone] documented as of this encounter Visit Diagnoses Not on filedocumented in this encounter Additional Health Concerns Assessment Noted Time PHQ-9 Depression Total Score: 3 04/07/2013 9:47 AM CDT documented as of this encounter
--- OUTSIDE RECORDS SUMMARY | 2022-05-17 19:10 | XMS_ITS | Encounter Summary ---
:1955 Author Organization [facility] Address [address] [place] [address] Care Team Providers Name Role Phone Unavailable [...] Date Recorded Male 05/16/2020 4:27 PM [employer] documented as of this encounter Last Filed Vital Signs Vital Sign Reading Time Taken Comments Blood Pressure 153/76 06/19/2013 7:59 AM NIBP - Value from [facility]. Pulse 48 06/19/2013 4:15 PM Value from [facility]. [employer] Temperature - - Respiratory Rate 16 06/19/2013 4:13 PM Value from [facility]. [employer] Oxygen Saturation - - Inhaled Oxygen - - Concentration Weight 81.4 kg (179 lb 7.3 06/19/2013 4:12 AM oz) [employer] Height 177 cm (5' 9.69) 06/12/2013 6:35 PM Vital si gn result [employer] from [facility]. Body Mass Index 25.98 06/12/2013 6:35 PM [employer] documented in this encounter Medications at Time [...] Laboratory Medicine Angélica Granger P.A.-C. [address] [place] [address] [phone] 05/23/2022 Clinical Admitting/Central Communication Scheduling 05/27/2022 Comprehensive Visit Orthopedic Surgery Markus Sams M.D., Ph.D. [address] [place] [phone] 05/29/2022 Office Visit Otorhinolaryngology Dex Matta APRN, C.N.P., M.S.N. [address] [place] [phone] 05/29/2022 Office Visit Otorhinolaryngology Nadeem Maradiaga, Jennifer., M.S. [address] [place] [phone] 05/31/2022 Appointment Radiology Guilherme Matt MPAS, Edmundo, M.S. [address] [place] [phone] 06/05/2022 Appointment Laboratory Medicine Angélica Granger P.A.-C. [address] [place] [phone] 06/19/2022 Appointment Laboratory Medicine Angélica Granger P.A.-C. [address] [place] [phone] 07/03/2022 Appointment Laboratory Medicine Angélica Granger P.A.-C. [address] [place] [phone] 07/17/2022 Appointment Laboratory Medicine Angélica Granger P.A.-C. [address] [place] [phone] 07/31/2022 Appointment Laboratory Medicine Angélica Granger P.A.-C. [address] [place] [phone] 08/14/2022 Appointment Laboratory Medicine Angélica Granger P.A.-C. [address] [place] [phone] 08/28/2022 Appointment Laboratory Medicine Angélica Granger P.A.-C. [address] [place] [phone] documented as of this encounter Procedures Procedure Name Priority Date/Time Associated Comments Diagnosis TACROLIMUS LEVEL, B Routine 06/20/2013 7:37 Resul ts for this AM [employer] procedure are i n the results section. PROTHROMBIN TIME (PT), P Routine 06/20/2013 7:37 Results for this AM [employer] procedure are i n the results section. ALANINE AMINOTRANSFERASE Routine 06/20/2013 7:37 Results for this (ALT), S/P AM [employer] procedure are i n the results section. ASPARTATE Routine 06/20/2013 7:37 Results for this AMINOTRANSFERASE (AST), AM [employer] proc edure are in S/P the results section. POTASSIUM, S/P Routine 06/20/2013 7:37 Results fo r this AM [employer] procedure are i n the results section. ALKALINE PHOSPHATASE, Routine 06/20/2013 7:37 Res ults for this S/P AM [employer] procedure are i n the results section. CREATININE WITH EGFR, Routine 06/20/2013 7:37 Res ults for this S/P AM [employer] procedure are i n the results section. BILIRUBIN DIRECT, S/P Routine 06/20/2013 7:37 Res ults for this AM [employer] procedure are i n the results section. BILIRUBIN, TOT, S/P Routine 06/20/2013 7:37 Resul ts for this AM [employer] procedure are i n the results section. GLUCOSE POCT, B Routine 06/19/2013 11:01 Results for this AM [employer] procedure are i n the results section. GLUCOSE POCT, B Routine 06/19/2013 6:46 Results f or this AM [employer] procedure are i n the results section. ELECTROLYTE (CHEM 4) Routine 06/19/2013 5:24 Resu lts for this PANEL, S/P AM [employer] procedure are i n the results section. CBC NO CALL BACK, REFLEX Routine 06/19/2013 5:24 Results for this T/S AM [employer] procedure are i n the results section. TACROLIMUS LEVEL, B Routine 06/19/2013 5:24 Resul ts for this AM [employer] procedure are i n the results section. BILIRUBIN, S Routine 06/19/2013 5:24 Results for this AM [employer] procedure are i n the results section. ALANINE AMINOTRANSFERASE Routine 06/19/2013 5:24 Results for this (ALT), S/P AM [employer] procedure are i n the results section. ASPARTATE Routine 06/19/2013 5:24 Results for this AMINOTRANSFERASE (AST), AM [employer] proc edure are in S/P the results section. ALKALINE PHOSPHATASE, Routine 06/19/2013 5:24 Res ults for this S/P AM [employer] procedure are i n the results section. GLUCOSE POCT, B Routine 06/18/2013 5:42 Results f or this PM [employer] procedure are i n the results section. GLUCOSE POCT, B Routine 06/18/2013 12:00 Results for this PM [employer] procedure are i n the results section. US ABDOMEN LIMITED PLUS Routine 06/18/2013 11:38 Results for this ABDOMEN DOPPLER AM [employer] procedure ar e in the results section. DX CHEST AP OR PA AND Routine 06/18/2013 10:43 Re sults for this LATERAL 2 VIEWS AM [employer] procedure ar e in the results section. GLUCOSE POCT, B Routine 06/18/2013 7:53 Results f or this AM [employer] procedure are i n the results section. ELECTROLYTE (CHEM 4) Routine 06/18/2013 5:16 Resu lts for this PANEL, S/P AM [employer] procedure are i n the results section. CBC NO CALL BACK, REFLEX Routine 06/18/2013 5:16 Results for this T/S AM [employer] procedure are i n the results section. PROTHROMBIN TIME (PT), P Routine 06/18/2013 5:16 Results for this AM [employer] procedure are i n the results section. BILIRUBIN, S Routine 06/18/2013 5:16 Results for this AM [employer] procedure are i n the results section. ALANINE AMINOTRANSFERASE Routine 06/18/2013 5:16 Results for this (ALT), S/P AM [employer] procedure are i n the results section. ASPARTATE Routine 06/18/2013 5:16 Results for this AMINOTRANSFERASE (AST), AM [employer] proc edure are in S/P the results section. PROTEIN, TOTAL, S/P Routine 06/18/2013 5:16 Resul ts for this AM [employer] procedure are i n the results section. ALKALINE PHOSPHATASE, Routine 06/18/2013 5:16 Res ults for this S/P AM [employer] procedure are i n the results section. MAGNESIUM, S Routine 06/18/2013 5:16 Results for this AM [employer] procedure are i n the results section. CALCIUM, TOT, S/P Routine 06/18/2013 5:16 Results for this AM [employer] procedure are i n the results section. ALBUMIN, S/P Routine 06/18/2013 5:16 Results for this AM [employer] procedure are i n the results section. GLUCOSE POCT, B Routine 06/17/2013 8:42 Results f or this PM [employer] procedure are i n the results section. GLUCOSE POCT, B Routine 06/17/2013 5:46 Results f or this PM [employer] procedure are i n the results section. GLUCOSE POCT, B Routine 06/17/2013 12:08 Results for this PM [employer] procedure are i n the results section. GLUCOSE POCT, B Routine 06/17/2013 7:40 Results f or this AM [employer] procedure are i n the results section. ELECTROLYTE (CHEM 4) Routine 06/17/2013 5:09 Resu lts for this PANEL, S/P AM [employer] procedure are i n the results section. ALANINE AMINOTRANSFERASE Routine 06/17/2013 5:09 Results for this (ALT), S/P AM [employer] procedure are i n the results section. ASPARTATE Routine 06/17/2013 5:09 Results for this AMINOTRANSFERASE (AST), AM [employer] proc edure are in S/P the results section. PHOSPHORUS (INORGANIC), Routine 06/17/2013 5:09 R esults for this S AM [employer] procedure are i n the results section. ALKALINE PHOSPHATASE, Routine 06/17/2013 5:09 Res ults for this S/P AM [employer] procedure are i n the results section. MAGNESIUM, S Routine 06/17/2013 5:09 Results for this AM [employer] procedure are i n the results section. CALCIUM, IONIZED, S/B Routine 06/17/2013 5:09 Res ults for this AM [employer] procedure are i n the results section. BILIRUBIN DIRECT, S/P Routine 06/17/2013 5:09 Res ults for this AM [employer] procedure are i n the results section. BILIRUBIN, TOT, S/P Routine 06/17/2013 5:09 Resul ts for this AM [employer] procedure are i n the results section. HX CHROMOSOMES, SISTER Routine 06/17/2013 5:08 Re sults for this CHROMATID EXCH AM [employer] procedure are in the results section. CBC WITH DIFFERENTIAL, B Routine 06/17/2013 5:08 Results for this AM [employer] procedure are i n the results section. GLUCOSE POCT, B Routine 06/17/2013 4:29 Results f or this AM [employer] procedure are i n the results section. GLUCOSE POCT, B Routine 06/16/2013 10:23 Results for this PM [employer] procedure are i n the results section. GLUCOSE POCT, B Routine 06/16/2013 4:53 Results f or this PM [employer] procedure are i n the results section. VANCOMYCIN, TROUGH, S Routine 06/16/2013 4:04 Res ults for this PM [employer] procedure are i n the results section. ELECTROLYTE (CHEM 4) Routine 06/16/2013 11:43 Res ults for this PANEL, S/P AM [employer] procedure are i n the results section. GLUCOSE POCT, B Routine 06/16/2013 11:43 Results for this AM [employer] procedure are i n the results section. CBC WITHOUT Routine 06/16/2013 11:43 Results for this DIFFERENTIAL, B AM [employer] procedure ar e in the results section. PHOSPHORUS (INORGANIC), Routine 06/16/2013 11:43 Results for this S AM [employer] procedure are i n the results section. MAGNESIUM, S Routine 06/16/2013 11:43 Results for this AM [employer] procedure are i n the results section. CALCIUM, IONIZED, S/B Routine 06/16/2013 11:43 Re sults for this AM [employer] procedure are i n the results section. ELECTROLYTE (CHEM 4) Routine 06/16/2013 7:06 Resu lts for this PANEL, S/P AM [employer] procedure are i n the results section. ACTIVATED PARTIAL Routine 06/16/2013 7:06 Results for this THROMBOPLASTIN TIME AM [employer] procedur e are in (APTT), P the results section. PROTHROMBIN TIME (PT), P Routine 06/16/2013 7:06 Results for this AM [employer] procedure are i n the results section. FIBRINOGEN, P Routine 06/16/2013 7:06 Results for this AM [employer] procedure are i n the results section. CBC WITHOUT Routine 06/16/2013 7:06 Results for this DIFFERENTIAL, B AM [employer] procedure ar e in the results section. GLUCOSE POCT, B Routine 06/16/2013 7:05 Results f or this AM [employer] procedure are i n the results section. ELECTROLYTE (CHEM 4) Routine 06/16/2013 1:46 Resu lts for this PANEL, S/P AM [employer] procedure are i n the results section. CBC NO CALL BACK, REFLEX Routine 06/16/2013 1:46 Results for this T/S AM [employer] procedure are i n the results section. ACTIVATED PARTIAL Routine 06/16/2013 1:46 Results for this THROMBOPLASTIN TIME AM [employer] procedur e are in (APTT), P the results section. PROTHROMBIN TIME (PT), P Routine 06/16/2013 1:46 Results for this AM [employer] procedure are i n the results section. BILIRUBIN, S Routine 06/16/2013 1:46 Results for this AM [employer] procedure are i n the results section. ALANINE AMINOTRANSFERASE Routine 06/16/2013 1:46 Results for this (ALT), S/P AM [employer] procedure are i n the results section. ASPARTATE Routine 06/16/2013 1:46 Results for this AMINOTRANSFERASE (AST), AM [employer] proc edure are in S/P the results section. PHOSPHORUS (INORGANIC), Routine 06/16/2013 1:46 R esults for this S AM [employer]IC procedure are i n the results section. ALKALINE PHOSPHATASE, Routine 06/16/2013 1:46 Res ults for this S/P AM [employer] procedure are i n the results section. CALCIUM, TOT, S/P Routine 06/16/2013 1:46 Results for this AM [employer] procedure are i n the results section. ALBUMIN, S/P Routine 06/16/2013 1:46 Results for this AM [employer] procedure are i n the results section. ACTIVATED PARTIAL Routine 06/15/2013 11:31 Result s for this THROMBOPLASTIN TIME PM [employer] procedur e are in (APTT), P the results section. PROTHROMBIN TIME (PT), P Routine 06/15/2013 11:31 Results for this PM [employer] procedure are i n the results section. FIBRINOGEN, P Routine 06/15/2013 11:31 Results fo r this PM [employer] procedure are i n the results section. CBC WITHOUT Routine 06/15/2013 11:31 Results for this DIFFERENTIAL, B PM [employer] procedure ar e in the results section. GLUCOSE POCT, B Routine 06/15/2013 9:27 Results f or this PM [employer] procedure are i n the results section. PREPARE FRESH FROZEN Routine 06/15/2013 8:31 Resu lts for this PLASMA PM [employer]IC procedure are i n the results section. THROMBOELASTOGRAPH, Routine 06/15/2013 7:33 Resul ts for this KAOLIN, B PM [employer] procedure are i n the results section. PROTHROMBIN TIME (PT), P Routine 06/15/2013 7:31 Results for this PM [employer] procedure are i n the results section. FIBRINOGEN, P Routine 06/15/2013 7:31 Results for this PM [employer] procedure are i n the results section. ABG W/COOX Routine 06/15/2013 7:20 Results for this PM [employer] procedure are i n the results section. PREPARE RED BLOOD CELLS Routine 06/15/2013 7:10 R esults for this PM [employer] procedure are i n the results section. PREPARE PLATELETS Routine 06/15/2013 7:05 Results for this PM [employer] procedure are i n the results section. GLUCOSE POCT, B Routine 06/15/2013 5:47 Results f or this PM [employer] procedure are i n the results section. ACTIVATED PARTIAL Routine 06/15/2013 5:47 Results for this THROMBOPLASTIN TIME PM [employer]IC procedur e are in (APTT), P the results section. PROTHROMBIN TIME (PT), P Routine 06/15/2013 5:47 Results for this PM [employer] procedure are i n the results section. FIBRINOGEN, P Routine 06/15/2013 5:47 Results for this PM [employer] procedure are i n the results section. CBC WITHOUT Routine 06/15/2013 5:47 Results for this DIFFERENTIAL, B PM [employer] procedure ar e in the results section. THROMBOELASTOGRAPH, Routine 06/15/2013 5:43 Resul ts for this KAOLIN, B PM [employer] procedure are i n the results section. PREPARE FRESH FROZEN Routine 06/15/2013 3:57 Resu lts for this PLASMA PM [employer] procedure are i n the results section. US ABDOMEN LIMITED PLUS Routine 06/15/2013 3:56 R esults for this ABDOMEN DOPPLER PM [employer] procedure ar e in the results section. PREPARE PLATELETS Routine 06/15/2013 3:25 Results for this PM [employer] procedure are i n the results section. PREPARE RED BLOOD CELLS Routine 06/15/2013 3:25 R esults for this PM [employer] procedure are i n the results section. THROMBOELASTOGRAPH, Routine 06/15/2013 3:05 Resul ts for this KAOLIN, B PM [employer] procedure are i n the results section. CBC WITHOUT Routine 06/15/2013 3:02 Results for this DIFFERENTIAL, B PM [employer] procedure ar e in the results section. ACTIVATED PARTIAL Routine 06/15/2013 2:43 Results for this THROMBOPLASTIN TIME PM [employer] procedur e are in (APTT), P the results section. PROTHROMBIN TIME (PT), P Routine 06/15/2013 2:43 Results for this PM [employer] procedure are i n the results section. FIBRINOGEN, P Routine 06/15/2013 2:43 Results for this PM [employer] procedure are i n the results section. PHOSPHORUS (INORGANIC), Routine 06/15/2013 1:19 R esults for this S PM [employer]IC procedure are i n the results section. MAGNESIUM, S Routine 06/15/2013 1:19 Results for this PM [employer] procedure are i n the results section. LACTATE, B/P Routine 06/15/2013 1:19 Results for this PM [employer] procedure are i n the results section. ABORH, RBC Routine 06/15/2013 1:18 Results for this PM [employer] procedure are i n the results section. ANTIBODY SCREEN, B Routine 06/15/2013 1:18 Result s for this PM [employer] procedure are i n the results section. ELPN WITH CREATININE Routine 06/15/2013 1:13 Resu lts for this REMY, P PM [employer] procedure are i n the results section. CBC WITHOUT Routine 06/15/2013 1:13 Results for this DIFFERENTIAL, B PM [employer] procedure ar e in the results section. PREPARE PLATELETS Routine 06/15/2013 1:09 Results for this PM [employer] procedure are i n the results section. PREPARE RED BLOOD CELLS Routine 06/15/2013 12:54 Results for this PM [employer] procedure are i n the results section. ABG AND ELECTROLYTES, B Routine 06/15/2013 12:46 Results for this (RAPIDPOINT - [place]) PM [employer]IC procedure are in the results section. GLUCOSE POCT, B Routine 06/15/2013 12:14 Results for this PM [employer] procedure are i n the results section. ACTIVATED PARTIAL Routine 06/15/2013 8:59 Results for this THROMBOPLASTIN TIME AM [employer] procedur e are in (APTT), P the results section. HLA CLASS II LOW Routine 06/15/2013 7:45 Results for this RESOLUTION TYPING AM [employer] procedure are in the results section. HLA CLASS I LOW Routine 06/15/2013 7:45 Results f or this RESOLUTION TYPING AM [employer] procedure are in the results section. HLA CROSSMATCH DONOR Routine 06/15/2013 7:42 Resu lts for this DRAW AM [employer] procedure are i n the results section. HLA CDC CROSSMATCH Routine 06/15/2013 7:42 Result s for this AM [employer] procedure are i n the results section. GLUCOSE POCT, B Routine 06/15/2013 7:33 Results f or this AM [employer] procedure are i n the results section. ACTIVATED PARTIAL Routine 06/15/2013 3:33 Results for this THROMBOPLASTIN TIME AM [employer] procedur e are in (APTT), P the results section. PROTHROMBIN TIME (PT), P Routine 06/15/2013 3:33 Results for this AM [employer] procedure are i n the results section. ELECTROLYTE (CHEM 4) Routine 06/15/2013 3:32 Resu lts for this PANEL, S/P AM [employer] procedure are i n the results section. CBC NO CALL BACK, REFLEX Routine 06/15/2013 3:32 Results for this T/S AM [employer] procedure are i n the results section. BILIRUBIN, S Routine 06/15/2013 3:32 Results for this AM [employer] procedure are i n the results section. ALANINE AMINOTRANSFERASE Routine 06/15/2013 3:32 Results for this (ALT), S/P AM [employer] procedure are i n the results section. ASPARTATE Routine 06/15/2013 3:32 Results for this AMINOTRANSFERASE (AST), AM [employer]IC proc edure are in S/P the results section. PHOSPHORUS (INORGANIC), Routine 06/15/2013 3:32 R esults for this S AM [employer]IC procedure are i n the results section. ALKALINE PHOSPHATASE, Routine 06/15/2013 3:32 Res ults for this S/P AM [employer] procedure are i n the results section. MAGNESIUM, S Routine 06/15/2013 3:32 Results for this AM [employer] procedure are i n the results section. CALCIUM, TOT, S/P Routine 06/15/2013 3:32 Results for this AM [employer] procedure are i n the results section. ALBUMIN, S/P Routine 06/15/2013 3:32 Results for this AM [employer] procedure are i n the results section. GLUCOSE POCT, B Routine 06/15/2013 3:26 Results f or this AM [employer] procedure are i n the results section. ACTIVATED PARTIAL Routine 06/14/2013 8:58 Results for this THROMBOPLASTIN TIME PM [employer]IC procedur e are in (APTT), P the results section. GLUCOSE POCT, B Routine 06/14/2013 5:46 Results f or this PM [employer] procedure are i n the results section. GLUCOSE POCT, B Routine 06/14/2013 12:31 Results for this PM [employer] procedure are i n the results section. US ABDOMEN LIMITED PLUS Routine 06/14/2013 10:50 Results for this ABDOMEN DOPPLER AM [employer] procedure ar e in the results section. GLUCOSE POCT, B Routine 06/14/2013 7:53 Results f or this AM [employer] procedure are i n the results section. CBC NO CALL BACK, REFLEX Routine 06/14/2013 2:06 Results for this T/S AM [employer] procedure are i n the results section. CYTOMEGALOVIRUS AB, IGM Routine 06/14/2013 2:06 R esults for this AND IGG AM [employer] procedure are i n the results section. HLA CLASS II SAB Routine 06/14/2013 2:06 Results for this ANTIBODY SCREEN AM [employer] procedure ar e in the results section. HLA CLASS I SAB ANTIBODY Routine 06/14/2013 2:06 Results for this SCREEN AM [employer] procedure are i n the results section. BUN (BLOOD UREA Routine 06/14/2013 2:06 Results f or this NITROGEN), S/P AM [employer] procedure are in the results section. TROPONIN T, 5TH GEN, P Routine 06/14/2013 2:06 Re sults for this AM [employer] procedure are i n the results section. ALANINE AMINOTRANSFERASE Routine 06/14/2013 2:06 Results for this (ALT), S/P AM [employer] procedure are i n the results section. ASPARTATE Routine 06/14/2013 2:06 Results for this AMINOTRANSFERASE (AST), AM [employer] proc edure are in S/P the results section. PHOSPHORUS (INORGANIC), Routine 06/14/2013 2:06 R esults for this S AM [employer] procedure are i n the results section. ALKALINE PHOSPHATASE, Routine 06/14/2013 2:06 Res ults for this S/P AM [employer] procedure are i n the results section. MAGNESIUM, S Routine 06/14/2013 2:06 Results for this AM [employer] procedure are i n the results section. GLUCOSE, FASTING, S/P Routine 06/14/2013 2:06 Res ults for this AM [employer] procedure are i n the results section. CALCIUM, TOT, S/P Routine 06/14/2013 2:06 Results for this AM [employer] procedure are i n the results section. ALBUMIN, S/P Routine 06/14/2013 2:06 Results for this AM [employer] procedure are i n the results section. HX MICROBIOLOGY REPORTS Routine 06/14/2013 2:05 R esults for this AM [employer] procedure are i n the results section. ABG W/COOX Routine 06/14/2013 1:45 Results for this AM [employer] procedure are i n the results section. ELPN WITH CREATININE Routine 06/14/2013 1:45 Resu lts for this REMY, P AM [employer] procedure are i n the results section. ACTIVATED PARTIAL Routine 06/14/2013 1:45 Results for this THROMBOPLASTIN TIME AM [employer] procedur e are in (APTT), P the results section. PROTHROMBIN TIME (PT), P Routine 06/14/2013 1:45 Results for this AM [employer] procedure are i n the results section. FIBRINOGEN, P Routine 06/14/2013 1:45 Results for this AM [employer] procedure are i n the results section. CALCIUM, IONIZED, S/B Routine 06/14/2013 1:45 Res ults for this AM [employer] procedure are i n the results section. GLUCOSE POCT, B Routine 06/13/2013 9:53 Results f or this PM [employer] procedure are i n the results section. HXINTRA-OP AUTO TX Routine 06/13/2013 8:26 Result s for this PM [employer] procedure are i n the results section. HXINTRA-OP AUTO TX Routine 06/13/2013 8:26 Result s for this PM [employer] procedure are i n the results section. GLUCOSE POCT, B Routine 06/13/2013 4:55 Results f or this PM [employer] procedure are i n the results section. ABG W/COOX Routine 06/13/2013 4:36 Results for this PM [employer] procedure are i n the results section. ELECTROLYTE (CHEM 4) Routine 06/13/2013 1:45 Resu lts for this PANEL, S/P PM [employer] procedure are i n the results section. ABG W/COOX Routine 06/13/2013 1:45 Results for this PM VIDEO [employer] procedure are i n the results section. ACTIVATED PARTIAL Routine 06/13/2013 1:45 Results for this THROMBOPLASTIN TIME PM VIDEO [employer] procedur e are in (APTT), P the results section. PROTHROMBIN TIME (PT), P Routine 06/13/2013 1:45 Results for this PM [employer]IDEO [employer] procedure are i n the results section. FIBRINOGEN, P Routine 06/13/2013 1:45 Results for this PM [employer]IDEO [employer] procedure are i n the results section. CBC WITHOUT Routine 06/13/2013 1:45 Results for this DIFFERENTIAL, B PM [employer] procedure ar e in the results section. CALCIUM, IONIZED, S/B Routine 06/13/2013 1:45 Res ults for this PM [employer]IDEO [employer] procedure are i n the results section. GLUCOSE POCT, B Routine 06/13/2013 1:41 Results f or this PM [employer] procedure are i n the results section. GLUCOSE POCT, B Routine 06/13/2013 12:49 Results for this PM [employer] procedure are i n the results section. GLUCOSE POCT, B Routine 06/13/2013 12:04 Results for this PM [employer] procedure are i n the results section. GLUCOSE POCT, B Routine 06/13/2013 10:39 Results for this AM [employer] procedure are i n the results section. GLUCOSE POCT, B Routine 06/13/2013 9:39 Results f or this AM [employer] procedure are i n the results section. GLUCOSE POCT, B Routine 06/13/2013 8:43 Results f or this AM [employer] procedure are i n the results section. US ABDOMEN LIMITED PLUS Routine 06/13/2013 8:28 R esults for this ABDOMEN DOPPLER AM [employer] procedure ar e in the results section. ABG W/COOX Routine 06/13/2013 7:40 Results for this AM [employer] procedure are i n the results section. ELPN WITH CREATININE Routine 06/13/2013 7:40 Resu lts for this REMY, P AM [employer] procedure are i n the results section. THROMBOELASTOGRAPH, Routine 06/13/2013 7:40 Resul ts for this KAOLIN, B AM [employer] procedure are i n the results section. ACTIVATED PARTIAL Routine 06/13/2013 7:40 Results for this THROMBOPLASTIN TIME AM [employer] procedur e are in (APTT), P the results section. PROTHROMBIN TIME (PT), P Routine 06/13/2013 7:40 Results for this AM [employer] procedure are i n the results section. FIBRINOGEN, P Routine 06/13/2013 7:40 Results for this AM [employer] procedure are i n the results section. CBC WITHOUT Routine 06/13/2013 7:40 Results for this DIFFERENTIAL, B AM [employer] procedure ar e in the results section. CALCIUM, IONIZED, S/B Routine 06/13/2013 7:40 Res ults for this AM [employer] procedure are i n the results section. GLUCOSE POCT, B Routine 06/13/2013 7:38 Results f or this AM [employer] procedure are i n the results section. GLUCOSE POCT, B Routine 06/13/2013 6:42 Results f or this AM [employer] procedure are i n the results section. GLUCOSE POCT, B Routine 06/13/2013 5:48 Results f or this AM [employer] procedure are i n the results section. GLUCOSE POCT, B Routine 06/13/2013 4:34 Results f or this AM [employer] procedure are i n the results section. ELECTROLYTE (CHEM 4) Routine 06/13/2013 3:34 Resu lts for this PANEL, S/P AM [employer] procedure are i n the results section. ABG W/COOX Routine 06/13/2013 3:34 Results for this AM [employer] procedure are i n the results section. CALCIUM, IONIZED, S/B Routine 06/13/2013 3:34 Res ults for this AM [employer] procedure are i n the results section. GLUCOSE POCT, B Routine 06/13/2013 3:16 Results f or this AM [employer] procedure are i n the results section. ACTIVATED PARTIAL Routine 06/13/2013 3:10 Results for this THROMBOPLASTIN TIME AM [employer] procedur e are in (APTT), P the results section. PROTHROMBIN TIME (PT), P Routine 06/13/2013 3:10 Results for this AM [employer] procedure are i n the results section. FIBRINOGEN, P Routine 06/13/2013 3:10 Results for this AM [employer] procedure are i n the results section. CBC WITHOUT Routine 06/13/2013 3:10 Results for this DIFFERENTIAL, B AM [employer] procedure ar e in the results section. DX CHEST PORTABLE 1 VIEW Routine 06/13/2013 2:07 Results for this AM [employer] procedure are i n the results section. PH BLOOD GAS Routine 06/13/2013 1:52 Results for this AM [employer] procedure are i n the results section. ELECTROLYTE (CHEM 4) Routine 06/13/2013 1:52 Resu lts for this PANEL, S/P AM [employer] procedure are i n the results section. ACTIVATED PARTIAL Routine 06/13/2013 1:52 Results for this THROMBOPLASTIN TIME AM [employer] procedur e are in (APTT), P the results section. PROTHROMBIN TIME (PT), P Routine 06/13/2013 1:52 Results for this AM [employer] procedure are i n the results section. FIBRINOGEN, P Routine 06/13/2013 1:52 Results for this AM [employer] procedure are i n the results section. CBC WITHOUT Routine 06/13/2013 1:52 Results for this DIFFERENTIAL, B AM [employer] procedure ar e in the results section. ALANINE AMINOTRANSFERASE Routine 06/13/2013 1:52 Results for this (ALT), S/P AM [employer] procedure are i n the results section. ASPARTATE Routine 06/13/2013 1:52 Results for this AMINOTRANSFERASE (AST), AM [employer] proc edure are in S/P the results section. ALKALINE PHOSPHATASE, Routine 06/13/2013 1:52 Res ults for this S/P AM [employer] procedure are i n the results section. CALCIUM, IONIZED, S/B Routine 06/13/2013 1:52 Res ults for this AM [employer] procedure are i n the results section. BILIRUBIN DIRECT, S/P Routine 06/13/2013 1:52 Res ults for this AM [employer] procedure are i n the results section. BILIRUBIN, TOT, S/P Routine 06/13/2013 1:52 Resul ts for this AM [employer] procedure are i n the results section. ABG W/COOX Routine 06/13/2013 1:44 Results for this AM [employer] procedure are i n the results section. DX ABDOMEN PORTABLE Routine 06/13/2013 1:27 Resul ts for this ANTERIOR POSTERIOR 1 AM [employer] procedu re are in VIEW the results section. ABG W/COOX Routine 06/13/2013 12:34 Results for this AM [employer] procedure are i n the results section. POTASSIUM, B Routine 06/13/2013 12:34 Results for this AM [employer] procedure are i n the results section. GLUCOSE, WHOLE BLOOD Routine 06/13/2013 12:34 Res ults for this AM [employer] procedure are i n the results section. THROMBOELASTOGRAPH, Routine 06/13/2013 12:34 Resu lts for this KAOLIN, B AM [employer] procedure are i n the results section. ACTIVATED PARTIAL Routine 06/13/2013 12:34 Result s for this THROMBOPLASTIN TIME AM [employer] procedur e are in (APTT), P the results section. PROTHROMBIN TIME (PT), P Routine 06/13/2013 12:34 Results for this AM [employer] procedure are i n the results section. FIBRINOGEN, P Routine 06/13/2013 12:34 Results fo r this AM [employer] procedure are i n the results section. PLATELETS, B Routine 06/13/2013 12:34 Results for this AM [employer] procedure are i n the results section. SODIUM, S/P Routine 06/13/2013 12:34 Results for this AM [employer] procedure are i n the results section. CALCIUM, IONIZED, S/B Routine 06/13/2013 12:34 Re sults for this AM [employer] procedure are i n the results section. PREPARE CRYOPRECIPITATE Routine 06/13/2013 12:11 Results for this AM [employer] procedure are i n the results section. ABG W/COOX Routine 06/12/2013 11:34 Results for this PM [employer] procedure are i n the results section. POTASSIUM, B Routine 06/12/2013 11:34 Results for this PM [employer] procedure are i n the results section. GLUCOSE, WHOLE BLOOD Routine 06/12/2013 11:34 Res ults for this PM [employer] procedure are i n the results section. THROMBOELASTOGRAPH, Routine 06/12/2013 11:34 Resu lts for this KAOLIN, B PM [employer] procedure are i n the results section. ACTIVATED PARTIAL Routine 06/12/2013 11:34 Result s for this THROMBOPLASTIN TIME PM [employer]IDEO [employer] procedur e are in (APTT), P the results section. PROTHROMBIN TIME (PT), P Routine 06/12/2013 11:34 Results for this PM [employer] procedure are i n the results section. FIBRINOGEN, P Routine 06/12/2013 11:34 Results fo r this PM [employer] procedure are i n the results section. PLATELETS, B Routine 06/12/2013 11:34 Results for this PM [employer] procedure are i n the results section. SODIUM, S/P Routine 06/12/2013 11:34 Results for this PM [employer] procedure are i n the results section. CALCIUM, IONIZED, S/B Routine 06/12/2013 11:34 Re sults for this PM [employer] procedure are i n the results section. PREPARE PLATELETS Routine 06/12/2013 11:03 Result s for this PM [employer] procedure are i n the results section. ABG W/COOX Routine 06/12/2013 11:00 Results for this PM [employer] procedure are i n the results section. POTASSIUM, B Routine 06/12/2013 11:00 Results for this PM [employer] procedure are i n the results section. GLUCOSE, WHOLE BLOOD Routine 06/12/2013 11:00 Res ults for this PM [employer] procedure are i n the results section. THROMBOELASTOGRAPH, Routine 06/12/2013 11:00 Resu lts for this KAOLIN, B PM [employer] procedure are i n the results section. ACTIVATED PARTIAL Routine 06/12/2013 11:00 Result s for this THROMBOPLASTIN TIME PM [employer] procedur e are in (APTT), P the results section. PROTHROMBIN TIME (PT), P Routine 06/12/2013 11:00 Results for this PM [employer] procedure are i n the results section. FIBRINOGEN, P Routine 06/12/2013 11:00 Results fo r this PM [employer] procedure are i n the results section. PLATELETS, B Routine 06/12/2013 11:00 Results for this PM [employer] procedure are i n the results section. SODIUM, S/P Routine 06/12/2013 11:00 Results for this PM [employer] procedure are i n the results section. CALCIUM, IONIZED, S/B Routine 06/12/2013 11:00 Re sults for this PM [employer] procedure are i n the results section. PREPARE CRYOPRECIPITATE Routine 06/12/2013 10:42 Results for this PM [employer] procedure are i n the results section. ABG W/COOX Routine 06/12/2013 10:32 Results for this PM [employer] procedure are i n the results section. POTASSIUM, B Routine 06/12/2013 10:32 Results for this PM [employer] procedure are i n the results section. GLUCOSE, WHOLE BLOOD Routine 06/12/2013 10:32 Res ults for this PM [employer] procedure are i n the results section. THROMBOELASTOGRAPH, Routine 06/12/2013 10:32 Resu lts for this KAOLIN, B PM [employer] procedure are i n the results section. ACTIVATED PARTIAL Routine 06/12/2013 10:32 Result s for this THROMBOPLASTIN TIME PM [employer] procedur e are in (APTT), P the results section. PROTHROMBIN TIME (PT), P Routine 06/12/2013 10:32 Results for this PM [employer] procedure are i n the results section. FIBRINOGEN, P Routine 06/12/2013 10:32 Results fo r this PM [employer] procedure are i n the results section. PLATELETS, B Routine 06/12/2013 10:32 Results for this PM [employer] procedure are i n the results section. SODIUM, S/P Routine 06/12/2013 10:32 Results for this PM [employer] procedure are i n the results section. CALCIUM, IONIZED, S/B Routine 06/12/2013 10:32 Re sults for this PM [employer] procedure are i n the results section. PREPARE PLATELETS Routine 06/12/2013 10:28 Result s for this PM [employer] procedure are i n the results section. PREPARE FRESH FROZEN Routine 06/12/2013 10:28 Res ults for this PLASMA PM [employer]IDEO [employer] procedure are i n the results section. PREPARE RED BLOOD CELLS Routine 06/12/2013 10:28 Results for this PM [employer] procedure are i n the results section. PREPARE PLATELETS Routine 06/12/2013 10:20 Result s for this PM [employer] procedure are i n the results section. PREPARE FRESH FROZEN Routine 06/12/2013 10:20 Res ults for this PLASMA PM [employer] procedure are i n the results section. PREPARE RED BLOOD CELLS Routine 06/12/2013 10:18 Results for this PM [employer] procedure are i n the results section. ABG W/COOX Routine 06/12/2013 10:12 Results for this PM [employer] procedure are i n the results section. POTASSIUM, B Routine 06/12/2013 10:12 Results for this PM [employer] procedure are i n the results section. GLUCOSE, WHOLE BLOOD Routine 06/12/2013 10:12 Res ults for this PM [employer] procedure are i n the results section. THROMBOELASTOGRAPH, Routine 06/12/2013 10:12 Resu lts for this KAOLIN, B PM [employer] procedure are i n the results section. ACTIVATED PARTIAL Routine 06/12/2013 10:12 Result s for this THROMBOPLASTIN TIME PM [employer] procedur e are in (APTT), P the results section. PROTHROMBIN TIME (PT), P Routine 06/12/2013 10:12 Results for this PM [employer] procedure are i n the results section. FIBRINOGEN, P Routine 06/12/2013 10:12 Results fo r this PM [employer] procedure are i n the results section. PLATELETS, B Routine 06/12/2013 10:12 Results for this PM [employer] procedure are i n the results section. SODIUM, S/P Routine 06/12/2013 10:12 Results for this PM [employer] procedure are i n the results section. CALCIUM, IONIZED, S/B Routine 06/12/2013 10:12 Re sults for this PM [employer] procedure are i n the results section. PREPARE RED BLOOD CELLS Routine 06/12/2013 10:11 Results for this PM [employer] procedure are i n the results section. PREPARE RED BLOOD CELLS Routine 06/12/2013 10:04 Results for this PM [employer] procedure are i n the results section. HX MICROBIOLOGY REPORTS Routine 06/12/2013 9:58 R esults for this PM [employer] procedure are i n the results section. ABG W/COOX Routine 06/12/2013 9:56 Results for this PM [employer] procedure are i n the results section. POTASSIUM, B Routine 06/12/2013 9:56 Results for this PM [employer] procedure are i n the results section. GLUCOSE, WHOLE BLOOD Routine 06/12/2013 9:56 Resu lts for this PM [employer] procedure are i n the results section. THROMBOELASTOGRAPH, Routine 06/12/2013 9:56 Resul ts for this KAOLIN, B PM [employer] procedure are i n the results section. ACTIVATED PARTIAL Routine 06/12/2013 9:56 Results for this THROMBOPLASTIN TIME PM [employer] procedur e are in (APTT), P the results section. PROTHROMBIN TIME (PT), P Routine 06/12/2013 9:56 Results for this PM [employer] procedure are i n the results section. FIBRINOGEN, P Routine 06/12/2013 9:56 Results for this PM [employer] procedure are i n the results section. PLATELETS, B Routine 06/12/2013 9:56 Results for this PM [employer] procedure are i n the results section. SODIUM, S/P Routine 06/12/2013 9:56 Results for this PM [employer] procedure are i n the results section. CALCIUM, IONIZED, S/B Routine 06/12/2013 9:56 Res ults for this PM [employer] procedure are i n the results section. PREPARE FRESH FROZEN Routine 06/12/2013 9:50 Resu lts for this PLASMA PM [employer] procedure are i n the results section. PREPARE RED BLOOD CELLS Routine 06/12/2013 9:50 R esults for this PM [employer] procedure are i n the results section. PREPARE RED BLOOD CELLS Routine 06/12/2013 9:38 R esults for this PM [employer] procedure are i n the results section. ABG W/COOX Routine 06/12/2013 9:24 Results for this PM [employer] procedure are i n the results section. POTASSIUM, B Routine 06/12/2013 9:24 Results for this PM [employer] procedure are i n the results section. GLUCOSE, WHOLE BLOOD Routine 06/12/2013 9:24 Resu lts for this PM [employer] procedure are i n the results section. THROMBOELASTOGRAPH, Routine 06/12/2013 9:24 Resul ts for this KAOLIN, B PM [employer] procedure are i n the results section. ACTIVATED PARTIAL Routine 06/12/2013 9:24 Results for this THROMBOPLASTIN TIME PM [employer] procedur e are in (APTT), P the results section. PROTHROMBIN TIME (PT), P Routine 06/12/2013 9:24 Results for this PM [employer] procedure are i n the results section. FIBRINOGEN, P Routine 06/12/2013 9:24 Results for this PM [employer] procedure are i n the results section. PLATELETS, B Routine 06/12/2013 9:24 Results for this PM [employer] procedure are i n the results section. SODIUM, S/P Routine 06/12/2013 9:24 Results for this PM [employer] procedure are i n the results section. CALCIUM, IONIZED, S/B Routine 06/12/2013 9:24 Res ults for this PM [employer] procedure are i n the results section. ABG W/COOX Routine 06/12/2013 8:53 Results for this PM [employer] procedure are i n the results section. POTASSIUM, B Routine 06/12/2013 8:53 Results for this PM [employer] procedure are i n the results section. GLUCOSE, WHOLE BLOOD Routine 06/12/2013 8:53 Resu lts for this PM [employer] procedure are i n the results section. THROMBOELASTOGRAPH, Routine 06/12/2013 8:53 Resul ts for this KAOLIN, B PM [employer] procedure are i n the results section. ACTIVATED PARTIAL Routine 06/12/2013 8:53 Results for this THROMBOPLASTIN TIME PM [employer] procedur e are in (APTT), P the results section. PROTHROMBIN TIME (PT), P Routine 06/12/2013 8:53 Results for this PM [employer] procedure are i n the results section. FIBRINOGEN, P Routine 06/12/2013 8:53 Results for this PM [employer] procedure are i n the results section. PLATELETS, B Routine 06/12/2013 8:53 Results for this PM [employer] procedure are i n the results section. SODIUM, S/P Routine 06/12/2013 8:53 Results for this PM [employer] procedure are i n the results section. CALCIUM, IONIZED, S/B Routine 06/12/2013 8:53 Res ults for this PM [employer] procedure are i n the results section. PREPARE PLATELETS Routine 06/12/2013 8:49 Results for this PM [employer] procedure are i n the results section. PREPARE FRESH FROZEN Routine 06/12/2013 8:49 Resu lts for this PLASMA PM [employer] procedure are i n the results section. PREPARE CRYOPRECIPITATE Routine 06/12/2013 8:49 R esults for this PM [employer] procedure are i n the results section. PREPARE RED BLOOD CELLS Routine 06/12/2013 8:48 R esults for this PM [employer] procedure are i n the results section. PREPARE PLATELETS Routine 06/12/2013 8:00 Results for this PM [employer] procedure are i n the results section. PREPARE FRESH FROZEN Routine 06/12/2013 8:00 Resu lts for this PLASMA PM [employer] procedure are i n the results section. ABG W/COOX Routine 06/12/2013 7:48 Results for this PM [employer] procedure are i n the results section. POTASSIUM, B Routine 06/12/2013 7:48 Results for this PM [employer] procedure are i n the results section. GLUCOSE, WHOLE BLOOD Routine 06/12/2013 7:48 Resu lts for this PM [employer] procedure are i n the results section. THROMBOELASTOGRAPH, Routine 06/12/2013 7:48 Resul ts for this KAOLIN, B PM [employer] procedure are i n the results section. ACTIVATED PARTIAL Routine 06/12/2013 7:48 Results for this THROMBOPLASTIN TIME PM [employer] procedur e are in (APTT), P the results section. PROTHROMBIN TIME (PT), P Routine 06/12/2013 7:48 Results for this PM [employer] procedure are i n the results section. FIBRINOGEN, P Routine 06/12/2013 7:48 Results for this PM [employer] procedure are i n the results section. PLATELETS, B Routine 06/12/2013 7:48 Results for this PM [employer] procedure are i n the results section. SODIUM, S/P Routine 06/12/2013 7:48 Results for this PM [employer] procedure are i n the results section. CALCIUM, IONIZED, S/B Routine 06/12/2013 7:48 Res ults for this PM [employer] procedure are i n the results section. DX CHEST AP OR PA AND Routine 06/12/2013 7:40 Res ults for this LATERAL 2 VIEWS AM [employer] procedure ar e in the results section. HX MICROBIOLOGY REPORTS Routine 06/12/2013 7:38 R esults for this AM [employer] procedure are i n the results section. MICROSCOPIC MANUAL Routine 06/12/2013 7:38 Result s for this AM [employer] procedure are i n the results section. GRAM'S ST, U Routine 06/12/2013 7:38 Results for this AM [employer] procedure are i n the results section. URINALYSIS WITH Routine 06/12/2013 7:38 Results f or this MICROSCOPIC AM [employer] procedure are i n the results section. HX MICROBIOLOGY REPORTS Routine 06/12/2013 6:49 R esults for this AM [employer] procedure are i n the results section. HX MICROBIOLOGY REPORTS Routine 06/12/2013 6:45 R esults for this AM [employer] procedure are i n the results section. CYTOMEGALOVIRUS AB, IGM Routine 06/12/2013 6:45 R esults for this AND IGG AM [employer] procedure are i n the results section. AMMONIA Routine 06/12/2013 6:45 Results for this AM [employer] procedure are i n the results section. ELECTROLYTE (CHEM 4) Routine 06/12/2013 6:44 Resu lts for this PANEL, S/P AM [employer] procedure are i n the results section. HEPATITIS BE AG AND AB Routine 06/12/2013 6:44 Re sults for this AM [employer] procedure are i n the results section. HLA CLASS II SAB Routine 06/12/2013 6:44 Results for this ANTIBODY SCREEN AM [employer] procedure ar e in the results section. HLA CLASS I SAB ANTIBODY Routine 06/12/2013 6:44 Results for this SCREEN AM [employer] procedure are i n the results section. HCV AB W/REFLEX TO HCV Routine 06/12/2013 6:44 Re sults for this PCR, S AM [employer] procedure are i n the results section. HEPATITIS A IGG AB S Routine 06/12/2013 6:44 Resu lts for this AM [employer] procedure are i n the results section. HEP B CORE AB, IGM Routine 06/12/2013 6:44 Result s for this AM [employer] procedure are i n the results section. HBC TOTAL AB, SERUM Routine 06/12/2013 6:44 Resul ts for this AM [employer] procedure are i n the results section. HEPATITIS B SURFACE Routine 06/12/2013 6:44 Resul ts for this ANTIGEN AM [employer] procedure are i n the results section. ACTIVATED PARTIAL Routine 06/12/2013 6:44 Results for this THROMBOPLASTIN TIME AM [employer] procedur e are in (APTT), P the results section. PROTHROMBIN TIME (PT), P Routine 06/12/2013 6:44 Results for this AM [employer] procedure are i n the results section. FIBRINOGEN, P Routine 06/12/2013 6:44 Results for this AM [employer] procedure are i n the results section. CBC WITH DIFFERENTIAL, B Routine 06/12/2013 6:44 Results for this AM [employer] procedure are i n the results section. TRIGLYCERIDES, S Routine 06/12/2013 6:44 Results for this AM [employer] procedure are i n the results section. ALANINE AMINOTRANSFERASE Routine 06/12/2013 6:44 Results for this (ALT), S/P AM [employer] procedure are i n the results section. ASPARTATE Routine 06/12/2013 6:44 Results for this AMINOTRANSFERASE (AST), AM [employer] proc edure are in S/P the results section. THYROID-STIMULATING Routine 06/12/2013 6:44 Resul ts for this HORMONE-SENSITIVE AM [employer] procedure are in (S-TSH) the results section. PROTEIN, TOTAL, S/P Routine 06/12/2013 6:44 Resul ts for this AM [employer] procedure are i n the results section. PHOSPHORUS (INORGANIC), Routine 06/12/2013 6:44 R esults for this S AM [employer] procedure are i n the results section. ALKALINE PHOSPHATASE, Routine 06/12/2013 6:44 Res ults for this S/P AM [employer] procedure are i n the results section. GLUCOSE, FASTING, S/P Routine 06/12/2013 6:44 Res ults for this AM [employer]AMES MECHANIC procedure are i n the results section. CHOLESTEROL, TOTAL, S Routine 06/12/2013 6:44 Res ults for this AM [employer]IDEO GAMES MECHANIC procedure are i n the results section. CALCIUM, TOT, S/P Routine 06/12/2013 6:44 Results for this AM [employer] GAMES MECHANIC procedure are i n the results section. BILIRUBIN DIRECT, S/P Routine 06/12/2013 6:44 Res ults for this AM [employer] GAMES MECHANIC procedure are i n the results section. BILIRUBIN, TOT, S/P Routine 06/12/2013 6:44 Resul ts for this AM [employer] MECHANIC procedure are i n the results section. ALBUMIN, S/P Routine 06/12/2013 6:44 Results for this AM [employer] G[employer] MECHANIC procedure are i n the results section. PREPARE RED BLOOD CELLS Routine 06/12/2013 6:28 R esults for this AM [employer]AMES MECHANIC procedure are i n the results section. ELECTROLYTE (CHEM 4) Routine 06/12/2013 5:34 Resu lts for this PANEL, S/P AM [employer] G[employer] MECHANIC procedure are i n the results section. CBC NO CALL BACK, REFLEX Routine 06/12/2013 5:34 Results for this T/S AM [employer] GAMES MECHANIC procedure are i n the results section. PROTHROMBIN TIME (PT), P Routine 06/12/2013 5:34 Results for this AM [employer] G[employer] MECHANIC procedure are i n the results section. BILIRUBIN, S Routine 06/12/2013 5:34 Results for this AM [employer] G[employer] MECHANIC procedure are i n the results section. CALCIUM, TOT, S/P Routine 06/12/2013 5:34 Results for this AM [employer] G[employer] MECHANIC procedure are i n the results section. 25-HYDROXYVITAMIN D2 AND Routine 06/11/2013 2:37 Results for this D3, S PM [employer] MECHANIC procedure are i n the results section. THYROID-STIMULATING Routine 06/11/2013 2:37 Resul ts for this HORMONE-SENSITIVE PM [employer] MECHANIC procedure are in (S-TSH) the results section. PHOSPHORUS (INORGANIC), Routine 06/11/2013 2:37 R esults for this S PM [employer] MECHANIC procedure are i n the results section. PARATHYROID HORMONE Routine 06/11/2013 2:37 Resul ts for this (PTH), S PM [employer]CH[employer]IC procedure are i n the results section. CALCIUM, IONIZED, S/B Routine 06/11/2013 2:37 Res ults for this PM [employer] MECHANIC procedure are i n the results section. DX CHEST AP OR PA AND Routine 06/11/2013 12:09 Re sults for this LATERAL 2 VIEWS PM [employer] MECHANIC procedure ar e in the results section. US ABDOMEN LIMITED PLUS Routine 06/11/2013 11:53 Results for this ABDOMEN DOPPLER AM [employer] MECHANIC procedure ar e in the results section. ELECTROLYTE (CHEM 4) Routine 06/11/2013 6:10 Resu lts for this PANEL, S/P AM [employer] MECHANIC procedure are i n the results section. CBC NO CALL BACK, REFLEX Routine 06/11/2013 6:10 Results for this T/S AM [employer] MECH[employer]IC procedure are i n the results section. TACROLIMUS LEVEL, B Routine 06/11/2013 6:10 Resul ts for this AM [employer] MECHANIC procedure are i n the results section. PROTHROMBIN TIME (PT), P Routine 06/11/2013 6:10 Results for this AM [employer] MECHANIC procedure are i n the results section. BILIRUBIN, S Routine 06/11/2013 6:10 Results for this AM [employer] MECHANIC procedure are i n the results section. ALANINE AMINOTRANSFERASE Routine 06/11/2013 6:10 Results for this (ALT), S/P AM [employer] ME[employer]IC procedure are i n the results section. ASPARTATE Routine 06/11/2013 6:10 Results for this AMINOTRANSFERASE (AST), AM [employer] MECHANIC proc edure are in S/P the results section. ALKALINE PHOSPHATASE, Routine 06/11/2013 6:10 Res ults for this S/P AM [employer] MECH[employer]IC procedure are i n the results section. MAGNESIUM, S Routine 06/11/2013 6:10 Results for this AM [employer] MECHANIC procedure are i n the results section. CALCIUM, TOT, S/P Routine 06/11/2013 6:10 Results for this AM [employer] MECH[employer]IC procedure are i n the results section. ALBUMIN, S/P Routine 06/11/2013 6:10 Results for this AM [employer] MECH[employer]IC procedure are i n the results section. HX MICROBIOLOGY REPORTS Routine 06/10/2013 9:46 R esults for this PM [employer] MECHANIC procedure are i n the results section. MICROSCOPIC MANUAL Routine 06/10/2013 9:46 Result s for this PM [employer] MECH[employer]IC procedure are i n the results section. URINALYSIS WITH Routine 06/10/2013 9:46 Results f or this MICROSCOPIC PM [employer]CH[employer]IC procedure are i n the results section. HX MICROBIOLOGY REPORTS Routine 06/10/2013 5:58 R esults for this PM [employer] MECHANIC procedure are i n the results section. HX MICROBIOLOGY REPORTS Routine 06/10/2013 5:46 R esults for this PM [employer] MECHANIC procedure are i n the results section. HX MICROBIOLOGY REPORTS Routine 06/10/2013 5:01 R esults for this PM [employer] MECHANIC procedure are i n the results section. CELL COUNT AND Routine 06/10/2013 5:01 Results fo r this DIFFERENTIAL, BF PM [employer] G[employer] MECHANIC procedure a re in the results section. DX CHEST AP OR PA AND Routine 06/10/2013 3:41 Res ults for this LATERAL 2 VIEWS PM [employer] MECHANIC procedure ar e in the results section. PREPARE RED BLOOD CELLS Routine 06/10/2013 9:25 R esults for this AM [employer] G[employer] MECHANIC procedure are i n the results section. TACROLIMUS LEVEL, B Routine 06/10/2013 7:11 Resul ts for this AM [employer] MECHANIC procedure are i n the results section. TACROLIMUS LEVEL, B Routine 06/09/2013 9:45 Resul ts for this AM V[employer] GAMES MECHANIC procedure are i n the results section. documented in this encounter Results Potassium (06/20/2013 7:37 AM VIDEO GAMES MECHANIC) P athologist Signature Potassium, S 4.1 3.6 - 5.2 [facility] MMOL/L LABORATORIES - [facility] Specimen Anatomical Collection Method Collection Time Receive d Time (Source) Location / / Volume Laterality 06/20/2013 7:37 AM 3 7:37 [employer]AMES MECH[employer]IC AM [employer] MECHANIC Jovi Knight M.D. LAB BLOOD ADD-ON Performing Organization Address City/State/ZIP Code Phon e Number [facility] LABORATORIES - [address] [place] [address] [facility] (ABNORMAL) Bilirubin, Direct (06/20/2013 7:37 AM VIDEO GAMES MECHANIC) [facility] gist Method Time Signature Bilirubin, 1.8 (H) 0.0 - 0.3 [facility] Direct, S MG/DL LABORATORIES - [facility] Specimen Anatomical Collection Method Collection Time Receive d Time (Source) Location / / Volume Laterality 06/20/2013 7:37 AM 3 7:37 V[employer] GAMES MECHANIC AM [employer] G[employer] MECHANIC Jovi Knight M.D. LAB BLOOD ADD-ON Performing Organization Address City/State/ZIP Code Phon e Number [facility] LABORATORIES - [address] [place] [address] [facility] Creatinine with Estimated GFR (MDRD) (06/20/2013 7:37 AM VIDEO GAMES MECHANIC) Analysis Performed At Patho logist Time Signature Creatinine 1.2 0.8 - 1.3 [facility] MG/DL LABORATORIES - [facility] eGFR >60 >60 [facility] Non-Black/Afric ML/MIN/BSA LABORATORIES - an Peruvian [facility] eGFR-Black/Afri >60 >60 [facility] can Peruvian ML/MIN/BSA LABORATORIES - [facility] Specimen Anatomical Collection Method Collection Time Receive d Time (Source) Location / / Volume Laterality 06/20/2013 7:37 AM 3 7:37 V[employer] GAMES MECHANIC AM [employer] GAMES MECHANIC Jovi Knight M.D. LAB BLOOD ADD-ON Performing Organization Address City/State/ZIP Code Phon e Number [facility] LABORATORIES - [address] [address] [facility] (ABNORMAL) Tacrolimus Level (06/20/2013 7:37 AM VIDEO GAMES MECHANIC) [facility] Method Time Signature Tacrolimus, B 3.1 (L) 5.0-15.0 [facility] (Trough) LABORATORIES - NG/ML [facility] Tacrolimus . [facility] Blood Date of LABORATORIES - Last Dose [facility] Comment: Not Specified Tacrolimus Time of Last Dose . M [facility] LABORATORIES - [facility] Comment: Not Specified Tacrolimus Blood Dose, mg . MG [facility] LABORATORIES - [facility] Comment: Not Specified Specimen Anatomical Collection Method Collection Time Receive d Time (Source) Location / / Volume Laterality 06/20/2013 7:37 AM 3 7:37 VIDEO GAMES MECHANIC AM [employer] GAMES MECHANIC Jovi Knight M.D. LAB BLOOD NON ADD-ON Performing Organization Address City/State/ZIP Code Phon e Number [facility] LABORATORIES - [address] [place] [address] [facility] (ABNORMAL) ALT (Alanine Aminotransferase) (06/20/2013 7:37 AM VIDEO GAMES MECHANIC) [facility] Method Time Signature Alanine 65 (H) 7 - 55 [facility] Aminotransferase U/L LABORATORIES - (ALT), S [facility] Specimen Anatomical Collection Method Collection Time Receive d Time (Source) Location / / Volume Laterality 06/20/2013 7:37 AM 3 7:37 VIDEO GAMES MECHANIC AM VIDEO GAMES MECHANIC Jovi Knight M.D. LAB BLOOD ADD-ON Performing Organization Address City/State/ZIP Code Phon e Number [facility] LABORATORIES - [address] [place] [phone] [facility] (ABNORMAL) Alkaline Phosphatase (06/20/2013 7:37 AM VIDEO GAMES MECHANIC) [facility] Method Time Signature Alkaline 118 (H) 45 - 115 [facility] Phosphatase, S U/L LABORATORIES - [facility] Specimen Anatomical Collection Method Collection Time Receive d Time (Source) Location / / Volume Laterality 06/20/2013 7:37 AM 3 7:37 VIDEO GAMES MECHANIC AM VIDEO GAMES MECHANIC Jovi Knight M.D. LAB BLOOD ADD-ON Performing Organization Address City/State/ZIP Code Phon e Number [facility] LABORATORIES - [address] [place] [phone] [facility] (ABNORMAL) Bilirubin, Total (06/20/2013 7:37 AM VIDEO GAMES MECHANIC) [facility] Method Time Signature Bilirubin, 3.2 (H) 0.1 - 1.0 [facility] Total, S MG/DL LABORATORIES - [facility] Specimen Anatomical Collection Method Collection Time Receive d Time (Source) Location / / Volume Laterality 06/20/2013 7:37 AM 3 7:37 VIDEO GAMES MECHANIC AM VIDEO GAMES MECHANIC Jovi Knight M.D. LAB BLOOD ADD-ON Performing Organization Address City/[facility]/ZIP Code Phon e Number [facility] LABORATORIES - [address] [place], [place] [address] [facility] AST (Aspartate Aminotransferase) (06/20/2013 7:37 AM VIDEO GAMES MECHANIC) P athologist Signature AST, Total, S 27 8 - 48 U/L [facility] Specimen Anatomical Collection Method Collection Time Receive d Time (Source) Location / / Volume Laterality 06/20/2013 7:37 AM 3 7:37 VIDEO GAMES MECHANIC AM VIDEO GAMES MECHANIC Jovi Knight M.D. LAB BLOOD ADD-ON Performing Organization Address City/[facility]/ZIP Code Phon e Number [facility] LABORATORIES - [address] [place] [phone] [facility] PT (Prothrombin Time) with INR (06/20/2013 7:37 AM VIDEO GAMES MECHANIC) [facility] Method Time Signature Prothrombin 13.0 9.5 - 13.8 [facility] Time, P SEC LABORATORIES - [facility] INR 1.1 0.8 - 1.2 [facility] Specimen Anatomical Collection Method Collection Time Receive d Time (Source) Location / / Volume Laterality 06/20/2013 7:37 AM 3 7:37 VIDEO GAMES MECHANIC AM VIDEO GAMES MECHANIC Jovi Knight M.D. LAB BLOOD ADD-ON Performing Organization Address City/[facility]/ZIP Code Phon e Number [facility] LABORATORIES - [address] [place] [phone] [facility] (ABNORMAL) Glucose, POCT (06/19/2013 11:01 AM VIDEO GAMES MECHANIC) [facility] gist Method Time Signature Glucose, 223 (H) 70 - 140 [facility] POCT, B MG/DL LABORATORIES - [facility] Sample Site, Capillary [facility] Blood Gas, LABORATORIES - POCT [facility] Specimen Anatomical Collection Method Collection Time Receive d Time (Source) Location / / Volume Laterality 06/19/2013 11:01 06/19/2013 AM VIDEO GAMES MECHANIC 11:01 AM VIDEO GAMES MECHANIC Historical Provider LAB POCT ORDERABLES-MANUAL Performing Organization Address City/[facility]/ZIP Code Phon e Number [facility] LABORATORIES - [address] [place] [phone] [facility] (ABNORMAL) Glucose, POCT (06/19/2013 6:46 AM VIDEO GAMES MECHANIC) [facility] Method Time Signature Glucose, 157 (H) 70 - 140 [facility] POCT, B MG/DL LABORATORIES - [facility] Sample Site, Capillary [facility] Blood Gas, LABORATORIES - POCT [facility] Last Intake 2-3 hours [facility] Specimen Anatomical Collection Method Collection Time Receive d Time (Source) Location / / Volume Laterality 06/19/2013 6:46 AM 3 6:46 VIDEO GAMES MECHANIC AM VIDEO GAMES MECHANIC Historical Provider LAB POCT ORDERABLES-MANUAL Performing Organization Address City/[facility] Code Phon e Number [facility] - [address] [phone] [facility] (ABNORMAL) Electrolyte (Chem 4) Panel (06/19/2013 5:24 AM VIDEO GAMES MECHANIC) [facility] Method Time Signature Chloride, S 98 (L) 100 - 108 [facility] MMOL/L LABORATORIES - [facility] HX Bicarbonate, 24 22 - 29 [facility] P/S MMOL/L LABORATORIES - [facility] eGFR-Black/Afri >60 >60 [facility] can Peruvian ML/MIN/BS LABORATORIES - A [facility] BUN (Blood Urea 28 (H) 8 - 24 [facility] Nitrogen), S MG/DL [facility] - [facility] Sodium, S 130 (L) 135 - 145 [facility] MMOL/L [facility] Potassium, S 3.7 3.6 - 5.2 [facility] MMOL/L [facility] - [facility] Creatinine 1.3 0.8 - 1.3 [facility] MG/DL LABORATORIES - [facility] eGFR 57 (L) >60 [facility] Non-Black/Afric ML/MIN/BS LABORATORIES - an Peruvian A [facility] Anion Gap 8 7 - 15 [facility] Glucose, S 204 (H) 70 - 140 [facility] MG/DL LABORATORIES - [facility] Specimen Anatomical Collection Method Collection Time Receive d Time (Source) Location / / Volume Laterality 06/19/2013 5:24 AM 3 5:24 VIDEO GAMES MECHANIC AM VIDEO GAMES MECHANIC Historical Provider LAB BLOOD ADD-ON Performing Organization Address City/State/ZIP Code Phon e Number [facility] LABORATORIES - [address] [place] [phone] [facility] (ABNORMAL) ALT (Alanine Aminotransferase) (06/19/2013 5:24 AM VIDEO GAMES MECHANIC) [facility] [employer] Method Time Signature Alanine 71 (H) 7 - 55 [facility] Aminotransferase U/L LABORATORIES - (ALT), S [facility] Specimen Anatomical Collection Method Collection Time Receive d Time (Source) Location / / Volume Laterality 06/19/2013 5:24 AM 3 5:24 VIDEO GAMES MECHANIC AM VIDEO GAMES MECHANIC Historical Provider LAB BLOOD ADD-ON Performing Organization Address City/State/ZIP Code Phon e Number [facility] LABORATORIES - [address] [facility] [address] [place] [address] [facility] (ABNORMAL) CBC with Differential - No Alerts (06/19/2013 5:24 AM VIDEO GAMES MECHANIC) [facility] [employer] Method Time Signature Hemoglobin 8.3 (L) 13.5 - [facility] 17.5 G/DL LABORATORIES - [facility] Hematocrit 24.1 (L) 38.8 - [facility] 50.0 % LABORATORIES - [facility] RBC Distrib 15.9 (H) 11.8 - [facility] Width 15.6 % LABORATORIES - [facility] Platelet Count 90 (L) 150 - 450 [facility] X10(9)/L LABORATORIES - [facility] Lymphocytes 0.38 (L) 0.90 - [facility] 2.90 LABORATORIES - X10(9)/L [facility] Monocytes 0.49 0.30 - [facility] 0.90 LABORATORIES - X10(9)/L [facility] Erythrocytes 2.72 (L) 4.32 - [facility] 5.72 LABORATORIES - X10(12)/L [facility] MCV 88.6 81.2 - [facility] 95.1 FL LABORATORIES - [facility] Leukocytes 4.5 3.5 - [facility] 10.5 LABORATORIES - X10(9)/L [facility] Neutrophils 3.53 1.70 - [facility] 7.00 LABORATORIES - X10(9)/L [facility] Eosinophils 0.09 0.05 - [facility] 0.50 LABORATORIES - X10(9)/L [facility] Basophils 0.00 0.00 - [facility] 0.30 LABORATORIES - X10(9)/L [facility] Specimen Anatomical Collection Method Collection Time Receive d Time (Source) Location / / Volume Laterality 06/19/2013 5:24 AM 3 5:24 VIDEO GAMES MECHANIC AM VIDEO GAMES MECHANIC Historical Provider LAB BLOOD NON ADD-ON Performing Organization Address City/State/ZIP Code Phon e Number [facility] LABORATORIES - [address] AST (Aspartate Aminotransferase) (06/19/2013 5:24 AM VIDEO GAMES MECHANIC) P athologist Signature AST, Total, S 29 8 - 48 U/L [facility] Specimen Anatomical Collection Method Collection Time Receive d Time (Source) Location / / Volume Laterality 06/19/2013 5:24 AM 3 5:24 VIDEO GAMES MECHANIC AM VIDEO GAMES MECHANIC Historical Provider LAB BLOOD ADD-ON Performing Organization Address City/[facility]/ZIP Code Phon e Number [facility] LABORATORIES - [address] [place] [phone] [facility] (ABNORMAL) Tacrolimus Level (06/19/2013 5:24 AM VIDEO GAMES MECHANIC) [facility] gist Method Time Signature Tacrolimus, B 2.4 (L) 5.0-15.0 [facility] (Trough) LABORATORIES - NG/ML [facility] Tacrolimus . [facility] Blood Date of LABORATORIES - Last Dose [facility] Comment: Not Specified Tacrolimus Time of Last Dose . M [facility] LABORATORIES - [facility] Comment: Not Specified Tacrolimus Blood Dose, mg . MG [facility] LABORATORIES - [facility] Comment: Not Specified Specimen Anatomical Collection Method Collection Time Receive d Time (Source) Location / / Volume Laterality 06/19/2013 5:24 AM 3 5:24 VIDEO GAMES MECHANIC AM VIDEO GAMES MECHANIC Historical Provider LAB BLOOD NON ADD-ON Performing Organization Address City/[facility]/ZIP Code Phon e Number [facility] LABORATORIES - [address] [place], [place] [address] [facility] (ABNORMAL) Alkaline Phosphatase (06/19/2013 5:24 AM VIDEO GAMES MECHANIC) Patholo gist Method Time Signature Alkaline 117 (H) 45 - 115 [facility] Phosphatase, S U/L LABORATORIES - [facility] Specimen Anatomical Collection Method Collection Time Receive d Time (Source) Location / / Volume Laterality 06/19/2013 5:24 AM 3 5:24 VIDEO GAMES MECHANIC AM VIDEO GAMES MECHANIC Historical Provider LAB BLOOD ADD-ON Performing Organization Address City/State/ZIP Code Phon e Number [facility] LABORATORIES - [address] [place], [place] [address] [facility] (ABNORMAL) Bilirubin (06/19/2013 5:24 AM VIDEO GAMES MECHANIC) [facility] Method Time Signature Bilirubin, 2.9 (H) 0.1 - 1.0 [facility] Total, S MG/DL LABORATORIES - [facility] Bilirubin, 1.8 (H) 0.0 - 0.3 [facility] Direct, S MG/DL LABORATORIES - [facility] Specimen Anatomical Collection Method Collection Time Receive d Time (Source) Location / / Volume Laterality 06/19/2013 5:24 AM 3 5:24 VIDEO GAMES MECHANIC AM VIDEO GAMES MECHANIC Historical Provider LAB BLOOD ADD-ON Performing Organization Address City/[facility]/ZIP Code Phon e Number [facility] LABORATORIES - [address] [place] [phone] [facility] (ABNORMAL) Glucose, POCT (06/18/2013 5:42 PM VIDEO GAMES MECHANIC) [facility] Method Time Signature Last Intake 1-2 hours [facility] Glucose, 168 (H) 70 - 140 [facility] POCT, B MG/DL LABORATORIES - [facility] Sample Site, Capillary [facility] Blood Gas, LABORATORIES - POCT [facility] Specimen Anatomical Collection Method Collection Time Receive d Time (Source) Location / / Volume Laterality 06/18/2013 5:42 PM 3 5:42 VIDEO GAMES MECHANIC PM VIDEO GAMES MECHANIC Historical Provider LAB POCT ORDERABLES-MANUAL Performing Organization Address City/[facility]/ZIP Code Phon e Number [facility] LABORATORIES - [address] [place] [phone] [facility] (ABNORMAL) Glucose, POCT (06/18/2013 12:00 PM VIDEO GAMES MECHANIC) [facility] Method Time Signature Last Intake 3-4 hours [facility] Glucose, 147 (H) 70 - 140 [facility] POCT, B MG/DL LABORATORIES - [facility] Sample Site, Capillary [facility] Blood Gas, LABORATORIES - POCT [facility] Specimen Anatomical Collection Method Collection Time Receive d Time (Source) Location / / Volume Laterality 06/18/2013 12:00 06/18/2013 PM VIDEO GAMES MECHANIC 12:00 PM VIDEO GAMES MECHANIC Historical Provider LAB POCT ORDERABLES-MANUAL Performing Organization Address City/[facility]/ZIP Code Phon e Number [facility] LABORATORIES - [address] [place] [address] [facility] US Abdomen Limited plus Abdomen Doppler (06/18/2013 11:38 AM VIDEO GAMES MECHANIC) Anatomical Region Laterality Modality Abdomen N/A Ultrasound Specimen (Source) Anatomical Collection Method Collection Time Re ceived Time Location / / Volume Laterality 06/18/2013 11:38 AM VIDEO GAMES MECHANIC Narrative 06/18/2013 11:46 AM VIDEO GAMES MECHANIC 18-Jun-2013 11:38:00 ??Exam: US Abd Lmtd with Doppler Cmpl Indications: [id number] ??[id number]; Abd. c omplete ??day 6 liver Tx [...] Lmtd w ith Doppler Cmpl Indications: [id number]; Abd. com plete day 6 liver Tx [...] and Lateral 2 Views (06/18/2013 10:43 AM VIDEO GAMES MECHANIC) Anatomical Region Laterality Modality Chest N/A Radiographic Imaging Specimen (Source) Anatomical Collection Method Collection Time Re ceived Time Location / / Volume Laterality 06/18/2013 10:43 AM VIDEO GAMES MECHANIC Narrative 06/18/2013 11:31 AM VIDEO GAMES MECHANIC 18-Jun-2013 10:43:00 ??Exam: Chest-- 2 Views Indications: pneumonia ORIGINAL REPORT - 18-Jun-2013 11:31:00 Chest; 2 views: Since June 13, 2013, the ETT, SGC, a nd NGT have been removed. The opacity of the right hemithorax has considerably decreased, with improvement in atelectasis and pleural fluid. Tiny bilateral pleural effusions persist. Surgical drain in the RUQ. Electronically signed by: ?? Char Jang M.D. [phone] 18-Jun-2013 11:31 Procedure Note Alan Jang M.D. [...] RUQ. Electronically signed by: Char Jang M.D. [phone] 18-Jun-2013 11:31 Juancarlos Castro M.D. IMAutumn DIAGNOSTIC IMAGING PROCE DURES (ABNORMAL) Glucose, POCT (06/18/2013 7:53 AM VIDEO GAMES MECHANIC) [facility] Method Time Signature Glucose, 172 (H) 70 - 140 [facility] POCT, B MG/DL LABORATORIES - [facility] Sample Site, Capillary [facility] Blood Gas, LABORATORIES - POCT [facility] Last Intake 3-4 hours [facility] LABORATORIES - [facility] Specimen Anatomical Collection Method Collection Time Receive d Time (Source) Location / / Volume Laterality 06/18/2013 7:53 AM 3 7:53 VIDEO GAMES MECHANIC AM VIDEO GAMES MECHANIC Historical Provider LAB POCT ORDERABLES-MANUAL Performing Organization Address City/[facility]/ZIP Code Phon e Number [facility] LABORATORIES - [address] [address] [facility] (ABNORMAL) Bilirubin (06/18/2013 5:16 AM VIDEO GAMES MECHANIC) [facility] Method Time Signature Bilirubin, 3.3 (H) 0.1 - 1.0 [facility] Total, S MG/DL LABORATORIES - [facility] Bilirubin, 2.2 (H) 0.0 - 0.3 [facility] Direct, S MG/DL LABORATORIES - [facility] Specimen Anatomical Collection Method Collection Time Receive d Time (Source) Location / / Volume Laterality 06/18/2013 5:16 AM 3 5:16 VIDEO GAMES MECHANIC AM VIDEO GAMES MECHANIC Jovi Knight M.D. LAB BLOOD ADD-ON Performing Organization Address City/State/ZIP Code Phon e Number [facility] LABORATORIES - [address] [phone] [facility] (ABNORMAL) ALT (Alanine Aminotransferase) (06/18/2013 5:16 AM VIDEO GAMES MECHANIC) [facility] Method Time Signature Alanine 91 (H) 7 - 55 [facility] Aminotransferase U/L LABORATORIES - (ALT), S [facility] Specimen Anatomical Collection Method Collection Time Receive d Time (Source) Location / / Volume Laterality 06/18/2013 5:16 AM 3 5:16 VIDEO GAMES MECHANIC AM VIDEO GAMES MECHANIC Jovi Knight M.D. LAB BLOOD ADD-ON Performing Organization Address City/State/ZIP Code Phon e Number [facility] LABORATORIES - [address] [phone] [facility] PT (Prothrombin Time) with INR (06/18/2013 5:16 AM VIDEO GAMES MECHANIC) [facility] Method Time Signature Prothrombin 13.4 9.5 - 13.8 [facility] Time, P [facility] INR 1.1 0.8 - 1.2 [facility] Specimen Anatomical Collection Method Collection Time Receive d Time (Source) Location / / Volume Laterality 06/18/2013 5:16 AM 3 5:16 VIDEO GAMES MECHANIC AM VIDEO GAMES MECHANIC Jovi Knight M.D. LAB BLOOD ADD-ON Performing Organization Address City/State/ZIP Code Phon e Number [facility] LABORATORIES - [address] [address] [facility] AST (Aspartate Aminotransferase) (06/18/2013 5:16 AM VIDEO GAMES MECHANIC) P athologist Signature AST, Total, S 41 8 - 48 U/L [facility] Specimen Anatomical Collection Method Collection Time Receive d Time (Source) Location / / Volume Laterality 06/18/2013 5:16 AM 3 5:16 VIDEO GAMES MECHANIC AM VIDEO GAMES MECHANIC Jovi Knight M.D. LAB BLOOD ADD-ON Performing Organization Address City/[facility]/ZIP Code Phon e Number [facility] LABORATORIES - [address] [address] [facility] (ABNORMAL) Calcium, Total (06/18/2013 5:16 AM VIDEO GAMES MECHANIC) [facility] Signature Calcium, 7.9 (L) 8.9 - 10.1 [facility] Total, S MG/DL [facility] Specimen Anatomical Collection Method Collection Time Receive d Time (Source) Location / / Volume Laterality 06/18/2013 5:16 AM 3 5:16 VIDEO GAMES MECHANIC AM VIDEO GAMES MECHANIC Jovi Knight M.D. LAB BLOOD ADD-ON Performing Organization Address City/[facility]/ZIP Code Phon e Number [facility] - [address] (ABNORMAL) Electrolyte (Chem 4) Panel (06/18/2013 5:16 AM VIDEO GAMES MECHANIC) [facility] Method Time Signature Creatinine 1.4 (H) 0.8 - 1.3 [facility] MG/DL [facility] eGFR 52 (L) >60 [facility] Non-Black/Afric ML/MIN/BS LABORATORIES - an [place]uvian A [facility] eGFR-Black/Afri >60 >60 [facility] can [place]uvian ML/MIN/BS LABORATORIES - A [facility] BUN (Blood Urea 30 (H) 8 - 24 [facility] Nitrogen), S MG/DL LABORATORIES - [facility] HX Bicarbonate, 26 22 - 29 [facility] P/S MMOL/L LABORATORIES - [facility] Anion Gap 9 7 - 15 [facility] LABORATORIES - [facility] Sodium, S 129 (L) 135 - 145 [facility] MMOL/L LABORATORIES - [facility] Chloride, S 94 (L) 100 - 108 [facility] MMOL/L LABORATORIES - [facility] Glucose, S 166 (H) 70 - 140 [facility] MG/DL LABORATORIES - [facility] Potassium, S 3.2 (L) 3.6 - 5.2 [facility] MMOL/L LABORATORIES - [facility] Specimen Anatomical Collection Method Collection Time Receive d Time (Source) Location / / Volume Laterality 06/18/2013 5:16 AM 3 5:16 VIDEO GAMES MECHANIC AM VIDEO GAMES MECHANIC Jovi Knight M.D. LAB BLOOD ADD-ON Performing Organization Address City/State/ZIP Code Phon e Number [facility] LABORATORIES - [address] [phone] [facility] Magnesium (06/18/2013 5:16 AM VIDEO GAMES MECHANIC) P athologist Signature Magnesium, S 1.9 1.7 - 2.3 [facility] MG/DL LABORATORIES - [facility] Specimen Anatomical Collection Method Collection Time Receive d Time (Source) Location / / Volume Laterality 06/18/2013 5:16 AM 3 5:16 VIDEO GAMES MECHANIC AM VIDEO GAMES MECHANIC Jovi Knight M.D. LAB BLOOD ADD-ON Performing Organization Address City/State/[facility] Phon e Number [facility] LABORATORIES - [address] [phone] 05 [facility] (ABNORMAL) Alkaline Phosphatase (06/18/2013 5:16 AM VIDEO GAMES MECHANIC) Patholo gist Method Time Signature Alkaline 128 (H) 45 - 115 [facility] Phosphatase, S U/L LABORATORIES - [facility] Specimen Anatomical Collection Method Collection Time Receive d Time (Source) Location / / Volume Laterality 06/18/2013 5:16 AM 3 5:16 VIDEO GAMES MECHANIC AM VIDEO GAMES MECHANIC Jovi Knight M.D. LAB BLOOD ADD-ON Performing Organization Address City/State/ZIP Code Phon e Number [facility] LABORATORIES - [address] [place] [address] 05 [facility] (ABNORMAL) Protein, Total (06/18/2013 5:16 AM VIDEO GAMES MECHANIC) [facility] Method Time Signature Total Protein, 4.6 (L) 6.3 - 7.9 [facility] S G/DL LABORATORIES - [facility] Specimen Anatomical Collection Method Collection Time Receive d Time (Source) Location / / Volume Laterality 06/18/2013 5:16 AM 3 5:16 VIDEO GAMES MECHANIC AM VIDEO GAMES MECHANIC Jovi Knight M.D. LAB BLOOD ADD-ON Performing Organization Address City/State/[facility] Code Phon e Number [facility] LABORATORIES - [address] [phone] [facility] (ABNORMAL) CBC with Differential - No Alerts (06/18/2013 5:16 AM VIDEO GAMES MECHANIC) [facility] Method Time Signature Erythrocytes 2.83 (L) 4.32 - [facility] 5.72 LABORATORIES - X10(12)/L [facility] MCV 88.3 81.2 - [facility] 95.1 FL LABORATORIES - [facility] Leukocytes 5.9 3.5 - [facility] 10.5 LABORATORIES - X10(9)/L [facility] Neutrophils 4.95 1.70 - [facility] 7.00 LABORATORIES - X10(9)/L [facility] Hemoglobin 8.6 (L) 13.5 - [facility] 17.5 G/DL LABORATORIES - [facility] Hematocrit 25.0 (L) 38.8 - [facility] 50.0 % LABORATORIES - [facility] RBC Distrib 15.8 (H) 11.8 - [facility] Width 15.6 % LABORATORIES - [facility] Platelet Count 81 (L) 150 - 450 [facility] X10(9)/L LABORATORIES - [facility] Lymphocytes 0.33 (L) 0.90 - [facility] 2.90 LABORATORIES - X10(9)/L [facility] Monocytes 0.54 0.30 - [facility] 0.90 LABORATORIES - X10(9)/L [facility] Eosinophils 0.07 0.05 - [facility] 0.50 LABORATORIES - X10(9)/L [facility] Basophils 0.01 0.00 - [facility] 0.30 LABORATORIES - X10(9)/L [facility] Specimen Anatomical Collection Method Collection Time Receive d Time (Source) Location / / Volume Laterality 06/18/2013 5:16 AM 3 5:16 VIDEO GAMES MECHANIC AM VIDEO GAMES MECHANIC Jovi Knight M.D. LAB BLOOD NON ADD-ON Performing Organization Address City/[facility]/ZIP Code Phon e Number [facility] LABORATORIES - [address] [phone] [facility] (ABNORMAL) Albumin (06/18/2013 5:16 AM VIDEO GAMES MECHANIC) P athologist Signature Albumin, S 2.8 (L) 3.5 - 5.0 [facility] G/DL LABORATORIES - [facility] Specimen Anatomical Collection Method Collection Time Receive d Time (Source) Location / / Volume Laterality 06/18/2013 5:16 AM 3 5:16 VIDEO GAMES MECHANIC AM VIDEO GAMES MECHANIC Jovi Knight M.D. LAB BLOOD ADD-ON Performing Organization Address City/[facility] Phon e Number [facility] LABORATORIES - [address] [phone] [facility] (ABNORMAL) Glucose, POCT (06/17/2013 8:42 PM VIDEO GAMES MECHANIC) [facility] gist Method Time Signature Glucose, 166 (H) 70 - 140 [facility] POCT, B MG/DL LABORATORIES - [facility] Sample Site, Capillary [facility] Blood Gas, LABORATORIES - POCT [facility] Last Intake 3-4 hours [facility] Specimen Anatomical Collection Method Collection Time Receive d Time (Source) Location / / Volume Laterality 06/17/2013 8:42 PM 3 8:42 VIDEO GAMES MECHANIC PM VIDEO GAMES MECHANIC Historical Provider LAB POCT ORDERABLES-MANUAL Performing Organization Address City/[facility] Code Phon e Number [facility] LABORATORIES - [address] [phone] [facility] (ABNORMAL) Glucose, POCT (06/17/2013 5:46 PM VIDEO GAMES MECHANIC) [facility] gist Method Time Signature Glucose, 155 (H) 70 - 140 [facility] POCT, B MG/DL LABORATORIES - [facility] Sample Site, Capillary [facility] Blood Gas, LABORATORIES - POCT [facility] Last Intake 3-4 hours [facility] Specimen Anatomical Collection Method Collection Time Receive d Time (Source) Location / / Volume Laterality 06/17/2013 5:46 PM 3 5:46 VIDEO GAMES MECHANIC PM VIDEO GAMES MECHANIC Historical Provider LAB POCT ORDERABLES-MANUAL Performing Organization Address City/[facility]/ZIP Code Phon e Number [facility] LABORATORIES - [address] [phone] [facility] (ABNORMAL) Glucose, POCT (06/17/2013 12:08 PM VIDEO GAMES MECHANIC) [facility] Method Time Signature Glucose, 195 (H) 70 - 140 [facility] POCT, B MG/DL LABORATORIES - [facility] Sample Site, Capillary [facility] Blood Gas, LABORATORIES - POCT [facility] Last Intake 1-2 hours [facility] - [facility] Specimen Anatomical Collection Method Collection Time Receive d Time (Source) Location / / Volume Laterality 06/17/2013 12:08 06/17/2013 PM VIDEO GAMES MECHANIC 12:08 PM VIDEO GAMES MECHANIC Historical Provider LAB POCT ORDERABLES-MANUAL Performing Organization Address City/[facility]/ZIP Code Phon e Number [facility] LABORATORIES - [address] [phone] [facility] Glucose, POCT (06/17/2013 7:40 AM VIDEO GAMES MECHANIC) [facility] Method Time Signature Last Intake 3-4 hours [facility] - [facility] Glucose, 136 70 - 140 [facility] POCT, B MG/DL LABORATORIES - [facility] Sample Site, Capillary [facility] Blood Gas, LABORATORIES - POCT [facility] Specimen Anatomical Collection Method Collection Time Receive d Time (Source) Location / / Volume Laterality 06/17/2013 7:40 AM 3 7:40 VIDEO GAMES MECHANIC AM VIDEO GAMES MECHANIC Historical Provider LAB POCT ORDERABLES-MANUAL Performing Organization Address City/[facility]/ZIP Code Phon e Number [facility] LABORATORIES - [address] [phone] [facility] (ABNORMAL) ALT (Alanine Aminotransferase) (06/17/2013 5:09 AM VIDEO GAMES MECHANIC) Component Value Ref Test Analysis Performed At [facility] Range Method Time Signature Alanine 112 (H) 7 - 55 [facility] Aminotransferase U/L LABORATORIES - (ALT), S [facility] Specimen Anatomical Collection Method Collection Time Receive d Time (Source) Location / / Volume Laterality 06/17/2013 5:09 AM 3 5:09 VIDEO GAMES MECHANIC AM VIDEO GAMES MECHANIC Gabriella Heath APRN, C.N.P., D.N.P. LAB BLOOD ADD-ON Performing Organization Address City/State/ZIP Code Phon e Number [facility] LABORATORIES - [address] [phone] [facility] (ABNORMAL) AST (Aspartate Aminotransferase) (06/17/2013 5:09 AM VIDEO GAMES MECHANIC) Analysis Performed At Patho logist Time Signature AST, Total, S 65 (H) 8 - 48 U/L [facility] Specimen Anatomical Collection Method Collection Time Receive d Time (Source) Location / / Volume Laterality 06/17/2013 5:09 AM 3 5:09 VIDEO GAMES MECHANIC AM VIDEO GAMES MECHANIC Arley Romano APRN.N.P., D.N.P. LAB BLOOD ADD-ON Performing Organization Address City/[facility]/ZIP Code Phon e Number [facility] LABORATORIES - [address] [phone] [facility] Calcium, Ionized (06/17/2013 5:09 AM VIDEO GAMES MECHANIC) P athologist Signature Calcium, 4.89 4.80 - [facility] Ionized, S 5.70 MG/DL [facility] - [facility] pH 7.43 7.32 - [facility] 7.43 LABORATORIES - [facility] Specimen Anatomical Collection Method Collection Time Receive d Time (Source) Location / / Volume Laterality 06/17/2013 5:09 AM 3 5:09 VIDEO GAMES MECHANIC AM VIDEO GAMES MECHANIC Arley Romano APRN.N.P., D.N.P. LAB BLOOD NON ADD- ON Performing Organization Address City/[facility]/ZIP Code Phon e Number [facility] LABORATORIES - [address] [phone] [facility] (ABNORMAL) Alkaline Phosphatase (06/17/2013 5:09 AM VIDEO GAMES MECHANIC) Patholo gist Method Time Signature Alkaline 121 (H) 45 - 115 [facility] Phosphatase, S U/L [facility] Specimen Anatomical Collection Method Collection Time Receive d Time (Source) Location / / Volume Laterality 06/17/2013 5:09 AM 3 5:09 VIDEO GAMES MECHANIC AM VIDEO GAMES MECHANIC Gabriella Heath APRN, Arley.N.P., D.N.P. LAB BLOOD ADD-ON Performing Organization Address City/State/ZIP Code Phon e Number [facility] LABORATORIES - [address] [place], [place] [address] [facility] (ABNORMAL) Bilirubin, Total (06/17/2013 5:09 AM VIDEO GAMES MECHANIC) [facility] Method Time Signature Bilirubin, 3.9 (H) 0.1 - 1.0 [facility] Total, S MG/DL LABORATORIES - [facility] Specimen Anatomical Collection Method Collection Time Receive d Time (Source) Location / / Volume Laterality 06/17/2013 5:09 AM 3 5:09 VIDEO GAMES MECHANIC AM VIDEO GAMES MECHANIC Arley Romano APRN.N.Evan., D.N.P. LAB BLOOD ADD-ON Performing Organization Address City/State/ZIP Code Phon e Number [facility] LABORATORIES - [address] [phone] [facility] (ABNORMAL) Electrolyte (Chem 4) Panel (06/17/2013 5:09 AM VIDEO GAMES MECHANIC) [facility] Method Time Signature HX Bicarbonate, 26 22 - 29 [facility] P/S MMOL/L LABORATORIES - [facility] Creatinine 1.6 (H) 0.8 - 1.3 [facility] MG/DL LABORATORIES [facility] Sodium, S 130 (L) 135 - 145 [facility] MMOL/L LABORATORIES [facility] Chloride, S 93 (L) 100 - 108 [facility] MMOL/L LABORATORIES - [facility] eGFR 45 (L) >60 [facility] Non-Black/Afric ML/MIN/BS LABORATORIES - [place]ian A [facility] eGFR-Black/Afri 54 (L) >60 [facility] can [place]uvian ML/MIN/BS LABORATORIES - A [facility] BUN (Blood Urea 33 (H) 8 - 24 [facility] Nitrogen), S MG/DL LABORATORIES - [facility] Anion Gap 11 7 - 15 [facility] Glucose, S 142 (H) 70 - 140 [facility] MG/DL [facility] - [facility] Potassium, S 3.2 (L) 3.6 - 5.2 [facility] MMOL/L LABORATORIES - [facility] Specimen Anatomical Collection Method Collection Time Receive d Time (Source) Location / / Volume Laterality 06/17/2013 5:09 AM 3 5:09 VIDEO GAMES MECHANIC AM VIDEO GAMES MECHANIC Arley Romano APRN.N.P., D.N.P. LAB BLOOD ADD-ON Performing Organization Address City/State/ZIP Code Phon e Number [facility] LABORATORIES - [address] [phone] [facility] Magnesium (06/17/2013 5:09 AM VIDEO GAMES MECHANIC) P athologist Signature Magnesium, S 2.0 1.7 - 2.3 [facility] MG/DL LABORATORIES [facility] Specimen Anatomical Collection Method Collection Time Receive d Time (Source) Location / / Volume Laterality 06/17/2013 5:09 AM 3 5:09 VIDEO GAMES MECHANIC AM VIDEO GAMES MECHANIC Gabriella Heath APRN, Arley.N.P., D.N.P. LAB BLOOD ADD-ON Performing Organization Address City/[facility]/ZIP Code Phon e Number [facility] LABORATORIES - [address] [phone] 05 [facility] (ABNORMAL) Phosphorus Inorganic (06/17/2013 5:09 AM VIDEO GAMES MECHANIC) [facility] gist Method Time Signature Phosphorus 2.0 (L) 2.5 - 4.5 [facility] (Inorganic), S MG/DL LABORATORIES [facility] Specimen Anatomical Collection Method Collection Time Receive d Time (Source) Location / / Volume Laterality 06/17/2013 5:09 AM 3 5:09 VIDEO GAMES MECHANIC AM VIDEO GAMES MECHANIC Gabriella Heath APRN, C.N.P., D.N.P. LAB BLOOD ADD-ON Performing Organization Address City/[facility]/ZIP Code Phon e Number [facility] LABORATORIES - [address] [phone] [facility] (ABNORMAL) Bilirubin, Direct (06/17/2013 5:09 AM VIDEO GAMES MECHANIC) [facility] gist Method Time Signature Bilirubin, 2.6 (H) 0.0 - 0.3 [facility] Direct, S MG/DL LABORATORIES [facility] Specimen Anatomical Collection Method Collection Time Receive d Time (Source) Location / / Volume Laterality 06/17/2013 5:09 AM 3 5:09 VIDEO GAMES MECHANIC AM VIDEO GAMES MECHANIC Gabriella Heath APRN, C.N.P., D.N.P. LAB BLOOD ADD-ON Performing Organization Address City/State/ZIP Code Phon e Number [facility] LABORATORIES - [address] [phone] 05 [facility] HX Chromosomes, Sister Chromatid Exch (06/17/2013 5:08 AM VIDEO GAMES MECHANIC) Specimen (Source) Anatomical Collection Method Collection Time Re ceived Time Location / / Volume Laterality 06/17/2013 5:08 AM VIDEO GAMES MECHANIC Narrative [facility] - 06/17/2013 10:03 AM VIDEO GAMES MECHANIC [id number] 05:08 ? Chr omosomes, Sister Chromatid Exchange Requested By: Gabriella Heath RN, CNP ? Specimen ?Specimen ID ??LabID ? Test No. ?--- ------- ??--------- Blood ? [id number] ?? [id number] ?[id number] ? RESULT Test cancelled INTERPRETATION NO CHARGE This test was cancelled by Dr. Curt blevins because it was ordered in error. REASON FOR REFERRAL aftercare following liver transplant METHOD Culture w/PHA and BrdU Signature Luisa Quinones [facility] [place] Date Released 17 Jun 2013 10:02 Date Ordered 17 Jun 2013 08:09 Procedure Note 10/13/2017 [id number] 05:08 Chromosomes, Sister Companion Caregiver matid Exchange Requested By: Gabriella Heath RN, RAISIN WASHER Specimen Specimen ID LabID Test No. ------- --- --------- Blood [id number] RESULT Test cancelled INTERPRETATION NO CHARGE This test was cancelled by Dr. Curt blevins because it was ordered in error. REASON FOR REFERRAL aftercare following liver transplant METHOD Culture w/PHA and BrdU Signature Luisa Quinones [facility] Date Released 17 Jun 2013 10:02 Date Ordered 17 Jun 2013 08:09 Gabriella Heath APRN, C.N.P., D.N.P. LAB HISTORICAL ORD ERS Performing Organization Address City/[facility]/ZIP Code Phon e Number [facility] LABORATORIES - [address] [place], [place] [address] [facility] (ABNORMAL) CBC with Differential (06/17/2013 5:08 AM VIDEO GAMES MECHANIC) [facility] Method Time Signature Hemoglobin 8.7 (L) 13.5 - [facility] 17.5 G/DL LABORATORIES - [facility] Hematocrit 24.7 (L) 38.8 - [facility] 50.0 % LABORATORIES - [facility] Leukocytes 8.8 3.5 - [facility] 10.5 LABORATORIES - X10(9)/L [facility] Neutrophils 7.90 (H) 1.70 - [facility] 7.00 LABORATORIES - X10(9)/L [facility] Eosinophils 0.08 0.05 - [facility] 0.50 LABORATORIES - X10(9)/L [facility] CENTER Basophils 0.00 0.00 - [facility] 0.30 LABORATORIES - X10(9)/L [facility] Erythrocytes 2.82 (L) 4.32 - [facility] 5.72 LABORATORIES - X10(12)/L [facility] MCV 87.6 81.2 - [facility] 95.1 [place] LABORATORIES - [facility] RBC Distrib 15.7 (H) 11.8 - [facility] Width 15.6 % LABORATORIES - [facility] Platelet Count 73 (L) 150 - 450 [facility] X10(9)/L LABORATORIES - [facility] Lymphocytes 0.36 (L) 0.90 - [facility] 2.90 LABORATORIES - X10(9)/L [facility] Monocytes 0.50 0.30 - [facility] 0.90 LABORATORIES - X10(9)/L [facility] Specimen Anatomical Collection Method Collection Time Receive d Time (Source) Location / / Volume Laterality 06/17/2013 5:08 AM 3 5:08 VIDEO GAMES MECHANIC AM VIDEO GAMES MECHANIC Gabriella Heath APRN, C.N.P., D.N.P. LAB BLOOD ADD-ON Performing Organization Address City/State/[facility] Code Phon e Number [facility] LABORATORIES - [address] [place] [place], [place] [address] [facility] Glucose, POCT (06/17/2013 4:29 AM VIDEO GAMES MECHANIC) [facility] Method Time Signature Last Intake > 4 hours [facility] Glucose, 112 70 - 140 [facility] POCT, B MG/DL LABORATORIES - [facility] Sample Site, Capillary [facility] Blood Gas, LABORATORIES - POCT [facility] Specimen Anatomical Collection Method Collection Time Receive d Time (Source) Location / / Volume Laterality 06/17/2013 4:29 AM 3 4:29 VIDEO GAMES MECHANIC AM VIDEO GAMES MECHANIC Historical Provider LAB POCT ORDERABLES-MANUAL Performing Organization Address City/State/ZIP Code Phon e Number [facility] LABORATORIES - [address] [place], [place] [address] [facility] (ABNORMAL) Glucose, POCT (06/16/2013 10:23 PM VIDEO GAMES MECHANIC) [facility] Signature Last Intake 3-4 hours [facility] Glucose, 186 (H) 70 - 140 [facility] POCT, B MG/DL LABORATORIES - [facility] Sample Site, Capillary [facility] Blood Gas, LABORATORIES - POCT [facility] Specimen Anatomical Collection Method Collection Time Receive d Time (Source) Location / / Volume Laterality 06/16/2013 10:23 06/16/2013 PM VIDEO GAMES MECHANIC 10:23 PM VIDEO GAMES MECHANIC Historical Provider LAB POCT ORDERABLES-MANUAL Performing Organization Address City/[facility]/ZIP Code Phon e Number [facility] LABORATORIES - [address] [place], [place] [address] [facility] Glucose, POCT (06/16/2013 4:53 PM VIDEO GAMES MECHANIC) [facility] Method [place] Signature Glucose, 133 70 - 140 [facility] POCT, B MG/DL LABORATORIES - [facility] Sample Site, Capillary [facility] Blood Gas, LABORATORIES - POCT [facility] Last Intake 3-4 hours [facility] Specimen Anatomical Collection Method Collection Time Receive d Time (Source) Location / / Volume Laterality 06/16/2013 4:53 PM 3 4:53 VIDEO GAMES MECHANIC PM VIDEO GAMES MECHANIC Historical Provider LAB POCT ORDERABLES-MANUAL Performing Organization Address City/[facility]/ZIP [facility] Phon e Number [facility] LABORATORIES - [address] [place], [place] [address] [facility] Vancomycin, Trough (06/16/2013 4:04 PM VIDEO GAMES MECHANIC) [facility] Method Time Signature Vancomycin, 16.9 SeeComment [facility] Trough, S MCG/ML LABORATORIES - [facility] Comment: Reference Range: ? 10.0 - 20.0 (Therapeutic concentration), 15.0 - 20.0 ? (Complicated infections) ? Specimen Anatomical Collection Method Collection Time Receive d Time (Source) Location / / Volume Laterality 06/16/2013 4:04 PM 201 3 4:04 VIDEO GAMES MECHANIC PM VIDEO GAMES MECHANIC Historical Provider LAB BLOOD NON ADD-ON Performing Organization Address City/State/ZIP Code Phon e Number [facility] LABORATORIES - [address] [place], [place] [address] [facility] (ABNORMAL) Calcium, Ionized (06/16/2013 11:43 AM VIDEO GAMES MECHANIC) [facility] gist Method Time Signature Calcium, 5.17 4.80 - [facility] Ionized, S 5.70 LABORATORIES - MG/DL [facility] pH 7.49 (H) 7.32 - [facility] 7.43 LABORATORIES - [facility] Specimen Anatomical Collection Method Collection Time Receive d Time (Source) Location / / Volume Laterality 06/16/2013 11:43 06/16/2013 AM VIDEO GAMES MECHANIC 11:43 AM VIDEO GAMES MECHANIC Arley Romano APRN.N.P., D.N.P. LAB BLOOD NON ADD- ON Performing Organization Address City/[facility]/ZIP Code Phon e Number [facility] LABORATORIES - [address] [place] [phone] [facility] (ABNORMAL) CBC without Differential (06/16/2013 11:43 AM VIDEO GAMES MECHANIC) Patholo gist Method Time Signature Hemoglobin 8.5 (L) 13.5 - [facility] 17.5 G/DL LABORATORIES [facility] Hematocrit 23.7 (L) 38.8 - [facility] 50.0 % LABORATORIES [facility] RBC Distrib 15.4 11.8 - [facility] Width 15.6 % [facility] Platelet Count 55 (L) 150 - 450 [facility] X10(9)/L LABORATORIES [facility] Leukocytes 6.3 3.5 - [facility] 10.5 LABORATORIES - X10(9)/L [facility] Erythrocytes 2.76 (L) 4.32 - [facility] 5.72 LABORATORIES - X10(12)/L [facility] MCV 85.9 81.2 - [facility] 95.1 [place] LABORATORIES [facility] Specimen Anatomical Collection Method Collection Time Receive d Time (Source) Location / / Volume Laterality 06/16/2013 11:43 06/16/2013 AM VIDEO GAMES MECHANIC 11:43 AM VIDEO GAMES MECHANIC Arley Romano APRN.N.P., D.N.P. LAB BLOOD ADD-ON Performing Organization Address City/State/ZIP Code Phon e Number [facility] LABORATORIES - [address] [place] [phone] [facility] Magnesium (06/16/2013 11:43 AM VIDEO GAMES MECHANIC) P athologist Signature Magnesium, S 2.0 1.7 - 2.3 [facility] MG/DL [facility] Specimen Anatomical Collection Method Collection Time Receive d Time (Source) Location / / Volume Laterality 06/16/2013 11:43 06/16/2013 AM VIDEO GAMES MECHANIC 11:43 AM VIDEO GAMES MECHANIC Arley Romano APRN.N.P., D.N.P. LAB BLOOD ADD-ON Performing Organization Address City/State/ZIP Code Phon e Number [facility] LABORATORIES - [address] [place] [phone] [facility] (ABNORMAL) Phosphorus Inorganic (06/16/2013 11:43 AM VIDEO GAMES MECHANIC) [facility] Method Time Signature Phosphorus 2.4 (L) 2.5 - 4.5 [facility] (Inorganic), S MG/DL LABORATORIES - [facility] Specimen Anatomical Collection Method Collection Time Receive d Time (Source) Location / / Volume Laterality 06/16/2013 11:43 06/16/2013 AM VIDEO GAMES MECHANIC 11:43 AM VIDEO GAMES MECHANIC Arley Romano APRN.N.P., D.N.P. LAB BLOOD ADD-ON Performing Organization Address City/State/[facility] Code Phon e Number [facility] LABORATORIES - [address] [place] [phone] [facility] (ABNORMAL) Electrolyte (Chem 4) Panel (06/16/2013 11:43 AM VIDEO GAMES MECHANIC) [facility] Method Time Signature Sodium, S 128 (L) 135 - 145 [facility] MMOL/L LABORATORIES - [facility] Potassium, S 3.6 3.6 - 5.2 [facility] MMOL/L LABORATORIES - [facility] eGFR-Black/Afri 50 (L) >60 [facility] can Peruvian ML/MIN/BS LABORATORIES - A [facility] BUN (Blood Urea 34 (H) 8 - 24 [facility] Nitrogen), S MG/DL [facility] Chloride, S 91 (L) 100 - 108 [facility] MMOL/L LABORATORIES [facility] HX Bicarbonate, 26 22 - 29 [facility] P/S MMOL/L LABORATORIES - [facility] Creatinine 1.7 (H) 0.8 - 1.3 [facility] MG/DL LABORATORIES - [facility] eGFR 42 (L) >60 [facility] Non-Black/Afric ML/MIN/BS LABORATORIES - Peruvian A [facility] Anion Gap 11 7 - 15 [facility] LABORATORIES - [facility] Glucose, S 174 (H) 70 - 140 [facility] MG/DL LABORATORIES - [facility] Specimen Anatomical Collection Method Collection Time Receive d Time (Source) Location / / Volume Laterality 06/16/2013 11:43 06/16/2013 AM VIDEO GAMES MECHANIC 11:43 AM VIDEO GAMES MECHANIC Arley Romano APRN.N.P., D.NDemetriusP. LAB BLOOD ADD-ON Performing Organization Address City/[facility]/ZIP Code Phon e Number [facility] LABORATORIES - [address] [place] [phone] [facility] (ABNORMAL) Glucose, POCT (06/16/2013 11:43 AM VIDEO GAMES MECHANIC) [facility] Method Time Signature Glucose, 168 (H) 70 - 140 [facility] POCT, B MG/DL LABORATORIES - [facility] Sample Site, Capillary [facility] Blood Gas, LABORATORIES - POCT [facility] Specimen Anatomical Collection Method Collection Time Receive d Time (Source) Location / / Volume Laterality 06/16/2013 11:43 06/16/2013 AM VIDEO GAMES MECHANIC 11:43 AM VIDEO GAMES MECHANIC Otoniel Grijalva P.A.-C. M.S. LAB POCT ORDERABLES-[facility] Performing Organization Address City/[facility]/ZIP Code Phon e Number [facility] LABORATORIES - [address] [place] [phone] [facility] (ABNORMAL) Electrolyte (Chem 4) Panel (06/16/2013 7:06 AM VIDEO GAMES MECHANIC) [facility] Method Time Signature Sodium, S 132 (L) 135 - 145 [facility] MMOL/L LABORATORIES - [facility] Potassium, S 3.6 3.6 - 5.2 [facility] MMOL/L LABORATORIES - [facility] Creatinine 1.8 (H) 0.8 - 1.3 [facility] MG/DL LABORATORIES - [facility] eGFR 39 (L) >60 [facility] Non-Black/Afric ML/MIN/BS LABORATORIES - an Peruvian A [facility] Anion Gap 12 7 - 15 [facility] LABORATORIES - [facility] Glucose, S 112 70 - 140 [facility] MG/DL LABORATORIES - [facility] Chloride, S 94 (L) 100 - 108 [facility] MMOL/L LABORATORIES - [facility] HX Bicarbonate, 26 22 - 29 [facility] P/S MMOL/L LABORATORIES - [facility] eGFR-Black/Afri 47 (L) >60 [facility] can Peruvian ML/MIN/BS LABORATORIES - A [facility] BUN (Blood Urea 34 (H) 8 - 24 [facility] Nitrogen), S MG/DL LABORATORIES - [facility] Specimen Anatomical Collection Method Collection Time Receive d Time (Source) Location / / Volume Laterality 06/16/2013 7:06 AM 3 7:06 VIDEO GAMES MECHANIC AM VIDEO GAMES MECHANIC Jaxson Calhoun M.D. LAB BLOOD ADD-ON Performing Organization Address City/State/ZIP Code Phon e Number [facility] LABORATORIES - [address] [place], [place] [address] [facility] (ABNORMAL) PT (Prothrombin Time) with INR (06/16/2013 7:06 AM VIDEO GAMES MECHANIC) [facility] Method Time Signature Prothrombin 14.2 (H) 9.5 - [facility] Time, P 13.8 SEC [facility] INR 1.2 0.8 - 1.2 [facility] Specimen Anatomical Collection Method Collection Time Receive d Time (Source) Location / / Volume Laterality 06/16/2013 7:06 AM 3 7:06 VIDEO GAMES MECHANIC AM VIDEO GAMES MECHANIC Jaxson Calhoun M.D. LAB BLOOD ADD-ON Performing Organization Address City/[facility]/ZIP Code Phon e Number [facility] LABORATORIES - [address] [place], [place] [address] [facility] (ABNORMAL) Fibrinogen (06/16/2013 7:06 AM VIDEO GAMES MECHANIC) [facility] Method Time Signature Fibrinogen, P 409 (H) 200 - 375 [facility] MG/DL [facility] Specimen Anatomical Collection Method Collection Time Receive d Time (Source) Location / / Volume Laterality 06/16/2013 7:06 AM 3 7:06 VIDEO GAMES MECHANIC AM VIDEO GAMES MECHANIC Jaxson Calhoun M.D. LAB BLOOD ADD-ON Performing Organization Address City/[facility]/ZIP Code Phon e Number [facility] LABORATORIES - [address] [place] [phone] [facility] (ABNORMAL) CBC without Differential (06/16/2013 7:06 AM VIDEO GAMES MECHANIC) [facility] Signature Hemoglobin 8.6 (L) 13.5 - [facility] 17.5 G/DL [facility] Hematocrit 23.7 (L) 38.8 - [facility] 50.0 % [facility] RBC Distrib 15.4 11.8 - [facility] Width 15.6 % [facility] Platelet Count 58 (L) 150 - 450 [facility] X10(9)/L [facility] Erythrocytes 2.77 (L) 4.32 - [facility] 5.72 LABORATORIES - X10(12)/L [facility] MCV 85.6 81.2 - [facility] 95.1 [place] LABORATORIES - [facility] Leukocytes 6.1 3.5 - [facility] 10.5 LABORATORIES - X10(9)/L [facility] Specimen Anatomical Collection Method Collection Time Receive d Time (Source) Location / / Volume Laterality 06/16/2013 7:06 AM 3 7:06 VIDEO GAMES MECHANIC AM VIDEO GAMES MECHANIC Jaxson Calhoun M.D. LAB BLOOD ADD-ON Performing Organization Address City/[facility]/ZIP Code Phon e Number [facility] LABORATORIES - [address] [place] [phone] [facility] APTT (Activated Partial Thromboplastin Time) (06/16/2013 7:06 AM VIDEO GAMES MECHANIC) P athologist Signature APTT, P 30 28 - 38 SEC [facility] LABORATORIES - [facility] Specimen Anatomical Collection Method Collection Time Receive d Time (Source) Location / / Volume Laterality 06/16/2013 7:06 AM 3 7:06 VIDEO GAMES MECHANIC AM VIDEO GAMES MECHANIC Jaxson Calhoun M.D. LAB BLOOD ADD-ON Performing Organization Address City/[facility]/ZIP Code Phon e Number [facility] LABORATORIES - [address] [place] [phone] [facility] Glucose, POCT (06/16/2013 7:05 AM VIDEO GAMES MECHANIC) [facility] Method Time Signature Glucose, 109 70 - 140 [facility] POCT, B MG/DL LABORATORIES - [facility] Sample Site, Capillary [facility] Blood Gas, LABORATORIES - POCT [facility] Specimen Anatomical Collection Method Collection Time Receive d Time (Source) Location / / Volume Laterality 06/16/2013 7:05 AM 3 7:05 VIDEO GAMES MECHANIC AM VIDEO GAMES MECHANIC Historical Provider LAB POCT ORDERABLES-MANUAL Performing Organization Address City/[facility]/ZIP [facility] Phon e Number [facility] LABORATORIES - [address] [place] [phone] [facility] (ABNORMAL) CBC with Differential - No Alerts (06/16/2013 1:46 AM VIDEO GAMES MECHANIC) [facility] Method Time Signature Erythrocytes 2.77 (L) 4.32 - [facility] 5.72 LABORATORIES - X10(12)/L [facility] MCV 83.4 81.2 - [facility] 95.1 [place] LABORATORIES - [facility] RBC Distrib 15.4 11.8 - [facility] Width 15.6 % LABORATORIES - [facility] Platelet Count 56 (L) 150 - 450 [facility] X10(9)/L LABORATORIES - [facility] Lymphocytes 0.25 (L) 0.90 - [facility] 2.90 LABORATORIES - X10(9)/L [facility] Monocytes 0.40 0.30 - [facility] 0.90 LABORATORIES - X10(9)/L [facility] Hemoglobin 8.3 (L) 13.5 - [facility] 17.5 G/DL LABORATORIES - [facility] Hematocrit 23.1 (L) 38.8 - [facility] 50.0 % LABORATORIES - [facility] Leukocytes 5.7 3.5 - [facility] 10.5 LABORATORIES - X10(9)/L [facility] Neutrophils 5.01 1.70 - [facility] 7.00 LABORATORIES - X10(9)/L [facility] Eosinophils 0.01 (L) 0.05 - [facility] 0.50 LABORATORIES - X10(9)/L [facility] Basophils 0.00 0.00 - [facility] 0.30 LABORATORIES - X10(9)/L [facility] Specimen Anatomical Collection Method Collection Time Receive d Time (Source) Location / / Volume Laterality 06/16/2013 1:46 AM 3 1:46 VIDEO GAMES MECHANIC AM VIDEO GAMES MECHANIC Juancarlos Castro M.D. LAB BLOOD NON ADD-ON Performing Organization Address City/[facility] Code Phon e Number [facility] LABORATORIES - [address] [place] [phone] [facility] Phosphorus Inorganic (06/16/2013 1:46 AM VIDEO GAMES MECHANIC) Analysis Performed At Patho logist Time Signature Phosphorus 3.4 2.5 - 4.5 [facility] (Inorganic), S MG/DL LABORATORIES - [facility] Specimen Anatomical Collection Method Collection Time Receive d Time (Source) Location / / Volume Laterality 06/16/2013 1:46 AM 3 1:46 VIDEO GAMES MECHANIC AM VIDEO GAMES MECHANIC Juancarlos Castro M.D. LAB BLOOD ADD-ON Performing Organization Address City/[facility] Phon e Number [facility] LABORATORIES - [address] [place] [phone] [facility] Albumin (06/16/2013 1:46 AM VIDEO GAMES MECHANIC) P athologist Signature Albumin, S 3.5 3.5 - 5.0 [facility] G/DL LABORATORIES [facility] Specimen Anatomical Collection Method Collection Time Receive d Time (Source) Location / / Volume Laterality 06/16/2013 1:46 AM 3 1:46 VIDEO GAMES MECHANIC AM VIDEO GAMES MECHANIC Juancarlos Castro M.D. LAB BLOOD ADD-ON Performing Organization Address City/[facility]/ZIP Code Phon e Number [facility] LABORATORIES - [address] [place] [phone] [facility] (ABNORMAL) Bilirubin (06/16/2013 1:46 AM VIDEO GAMES MECHANIC) [facility] Method Time Signature Bilirubin, 4.6 (H) 0.1 - 1.0 [facility] Total, S MG/DL LABORATORIES [facility] Bilirubin, 3.2 (H) 0.0 - 0.3 [facility] Direct, S MG/DL LABORATORIES [facility] Specimen Anatomical Collection Method Collection Time Receive d Time (Source) Location / / Volume Laterality 06/16/2013 1:46 AM 3 1:46 VIDEO GAMES MECHANIC AM VIDEO GAMES MECHANIC Juancarlos Castro M.D. LAB BLOOD ADD-ON Performing Organization Address City/[facility] Code Phon e Number [facility] LABORATORIES - [address] [phone] [facility] (ABNORMAL) AST (Aspartate Aminotransferase) (06/16/2013 1:46 AM VIDEO GAMES MECHANIC) [facility] Method Time Signature AST, Total, S 102 (H) 8 - 48 U/L [facility] Specimen Anatomical Collection Method Collection Time Receive d Time (Source) Location / / Volume Laterality 06/16/2013 1:46 AM 3 1:46 VIDEO GAMES MECHANIC AM VIDEO GAMES MECHANIC Juancarlos Castro M.D. LAB BLOOD ADD-ON Performing Organization Address City/[facility] Phon e Number [facility] LABORATORIES - [address] [place] [phone] [facility] Alkaline Phosphatase (06/16/2013 1:46 AM VIDEO GAMES MECHANIC) P athologist Signature Alkaline 91 45 - 115 [facility] Phosphatase, S U/L LABORATORIES [facility] Specimen Anatomical Collection Method Collection Time Receive d Time (Source) Location / / Volume Laterality 06/16/2013 1:46 AM 3 1:46 VIDEO GAMES MECHANIC AM VIDEO GAMES MECHANIC Juancarlos Castro M.D. LAB BLOOD ADD-ON Performing Organization Address City/State/ZIP Code Phon e Number [facility] LABORATORIES - [address] [place] [phone] [facility] (ABNORMAL) ALT (Alanine Aminotransferase) (06/16/2013 1:46 AM VIDEO GAMES MECHANIC) Component Value Ref Test Analysis Performed At [facility] Range Method Time Signature Alanine 117 (H) 7 - 55 [facility] Aminotransferase U/L LABORATORIES - (ALT), S [facility] Specimen Anatomical Collection Method Collection Time Receive d Time (Source) Location / / Volume Laterality 06/16/2013 1:46 AM 3 1:46 VIDEO GAMES MECHANIC AM VIDEO GAMES MECHANIC Juancarlos Castro M.D. LAB BLOOD ADD-ON Performing Organization Address City/[facility]/ZIP Code Phon e Number [facility] - [address] [phone] [facility] APTT (Activated Partial Thromboplastin Time) (06/16/2013 1:46 AM VIDEO GAMES MECHANIC) P athologist [facility] APTT, P 30 28 - 38 SEC [facility] Specimen Anatomical Collection Method Collection Time Receive d Time (Source) Location / / Volume Laterality 06/16/2013 1:46 AM 3 1:46 VIDEO GAMES MECHANIC AM VIDEO GAMES MECHANIC Juancarlos Castro M.D. LAB BLOOD ADD-ON Performing Organization Address City/State/ZIP Code Phon e Number [facility] LABORATORIES - [address] [place] [phone] [facility] Calcium, Total (06/16/2013 1:46 AM VIDEO GAMES MECHANIC) athologist [facility] Calcium, 9.6 8.9 - 10.1 [facility] Total, S MG/DL LABORATORIES [facility] Specimen Anatomical Collection Method Collection Time Receive d Time (Source) Location / / Volume Laterality 06/16/2013 1:46 AM 3 1:46 VIDEO GAMES MECHANIC AM VIDEO GAMES MECHANIC Juancarlos Castro M.D. LAB BLOOD ADD-ON Performing Organization Address City/[facility]/ZIP Code Phon e Number [facility] LABORATORIES - [address] [place] [phone] [facility] [facility] (ABNORMAL) Electrolyte (Chem 4) Panel (06/16/2013 1:46 AM VIDEO GAMES MECHANIC) [facility] Method Time Signature Sodium, S 133 (L) 135 - 145 [facility] MMOL/L LABORATORIES - [facility] Potassium, S 3.3 (L) 3.6 - 5.2 [facility] MMOL/L LABORATORIES - [facility] Creatinine 1.8 (H) 0.8 - 1.3 [facility] MG/DL LABORATORIES - [facility] eGFR 39 (L) >60 [facility] Non-Black/Afric ML/MIN/BS LABORATORIES - Peruvian A [facility] eGFR-Black/Afri 47 (L) >60 [facility] can [place]uvian ML/MIN/BS [facility] (Blood Urea 36 (H) 8 - 24 [facility] Nitrogen), S MG/DL [facility] - [facility] Chloride, S 95 (L) 100 - 108 [facility] MMOL/L LABORATORIES [facility] HX Bicarbonate, 25 22 - 29 [facility] P/S MMOL/L LABORATORIES [facility] Anion Gap 13 7 - 15 [facility] Glucose, S 143 (H) 70 - 140 [facility] MG/DL LABORATORIES - [facility] Specimen Anatomical Collection Method Collection Time Receive d Time (Source) Location / / Volume Laterality 06/16/2013 1:46 AM 3 1:46 VIDEO GAMES MECHANIC AM VIDEO GAMES MECHANIC Juancarlos Castro M.D. LAB BLOOD ADD-ON Performing Organization Address City/[facility] Code Phon e Number [facility] LABORATORIES - [address] (ABNORMAL) PT (Prothrombin Time) with INR (06/16/2013 1:46 AM VIDEO GAMES MECHANIC) [facility] Method Time Signature Prothrombin 14.5 (H) 9.5 - [facility] Time, P 13.8 SEC LABORATORIES - [facility] INR 1.2 0.8 - 1.2 [facility] LABORATORIES - [facility] Specimen Anatomical Collection Method Collection Time Receive d Time (Source) Location / / Volume Laterality 06/16/2013 1:46 AM 3 1:46 VIDEO GAMES MECHANIC AM VIDEO GAMES MECHANIC Juancarlos Castro M.D. LAB BLOOD ADD-ON Performing Organization Address City/[facility] Phon e Number [facility] LABORATORIES - [address] [place] [address] [facility] Fibrinogen (06/15/2013 11:31 PM VIDEO GAMES MECHANIC) P athologist Signature Fibrinogen, P 368 200 - 375 [facility] MG/DL LABORATORIES - [facility] Specimen Anatomical Collection Method Collection Time Receive d Time (Source) Location / / Volume Laterality 06/15/2013 11:31 06/15/2013 PM VIDEO GAMES MECHANIC 11:31 PM VIDEO GAMES MECHANIC Jaxson Calhoun M.D. LAB BLOOD ADD-ON Performing Organization Address City/[facility]/ZIP Code Phon e Number [facility] LABORATORIES - [address] [place] [phone] [facility] APTT (Activated Partial Thromboplastin Time) (06/15/2013 11:31 PM VIDEO GAMES MECHANIC) athologist [facility] APTT, P 31 28 - 38 SEC [facility] Specimen Anatomical Collection Method Collection Time Receive d Time (Source) Location / / Volume Laterality 06/15/2013 11:31 06/15/2013 PM VIDEO GAMES MECHANIC 11:31 PM VIDEO GAMES MECHANIC Jaxson Calhoun M.D. LAB BLOOD ADD-ON Performing Organization Address [facility] Phon e Number [facility] LABORATORIES - [address] [place] [address] [facility] (ABNORMAL) CBC without Differential (06/15/2013 11:31 PM VIDEO GAMES MECHANIC) [facility] gist Method Time Signature Hemoglobin 8.3 (L) 13.5 - [facility] 17.5 G/DL [facility] Hematocrit 23.3 (L) 38.8 - [facility] 50.0 % [facility] RBC Distrib 15.6 11.8 - [facility] Width 15.6 % [facility] Platelet Count 57 (L) 150 - 450 [facility] X10(9)/L [facility] Erythrocytes 2.78 (L) 4.32 - [facility] 5.72 LABORATORIES - X10(12)/L [facility] MCV 83.8 81.2 - [facility] 95.1 FL [facility] Leukocytes 6.1 3.5 - [facility] 10.5 LABORATORIES - X10(9)/L [facility] Specimen Anatomical Collection Method Collection Time Receive d Time (Source) Location / / Volume Laterality 06/15/2013 11:31 06/15/2013 PM VIDEO GAMES MECHANIC 11:31 PM VIDEO GAMES MECHANIC Jaxson Calhoun M.D. LAB BLOOD ADD-ON Performing Organization Address City/[facility] Phon e Number [facility] LABORATORIES - [address] [place] [phone] [facility] (ABNORMAL) PT (Prothrombin Time) with INR (06/15/2013 11:31 PM VIDEO GAMES MECHANIC) [facility] Method Time Signature Prothrombin 14.2 (H) 9.5 - [facility] Time, P 13.8 SEC [facility] INR 1.2 0.8 - 1.2 [facility] Specimen Anatomical Collection Method Collection Time Receive d Time (Source) Location / / Volume Laterality 06/15/2013 11:31 06/15/2013 PM VIDEO GAMES MECHANIC 11:31 PM VIDEO GAMES MECHANIC Jaxson Calhoun M.D. LAB BLOOD ADD-ON Performing Organization Address City/[facility]/ZIP Code Phon e Number [facility] - [address] [phone] [facility] (ABNORMAL) Glucose, POCT (06/15/2013 9:27 PM VIDEO GAMES MECHANIC) [facility] Method Time Signature Glucose, 171 (H) 70 - 140 [facility] POCT, B MG/DL LABORATORIES - [facility] Sample Site, Capillary [facility] Blood Gas, LABORATORIES - POCT [facility] Specimen Anatomical Collection Method Collection Time Receive d Time (Source) Location / / Volume Laterality 06/15/2013 9:27 PM 3 9:27 VIDEO GAMES MECHANIC PM VIDEO GAMES MECHANIC Historical Provider LAB POCT ORDERABLES-MANUAL Performing Organization Address City/[facility]/ZIP Code Phon e Number [facility] - [address] [phone] [facility] Prepare fresh frozen plasma (06/15/2013 8:31 PM VIDEO GAMES MECHANIC) Analysis Performed At [facility] logist Time Signature HXFFP # UNITS 2 [facility] TRANSFUSED LABORATORIES [facility] HXFFP UNIT INFO FFP [facility] Comment: Unit Blood Type O Pos Unit Number [id number] Component Type Thawed PLASMA Issue Date/Time [id number] Unit Blood Type O Pos Unit Number [id number] Component Type Thawed PLASMA Issue Date/Time [id number] Specimen (Source) Anatomical Collection Method Collection Time Re ceived Time Location / / Volume Laterality 06/15/2013 8:31 PM VIDEO GAMES MECHANIC Historical Provider BLOOD BANK PRODUCT ORDERABLE S Performing Organization Address City/State/ZIP Code Phon e Number [facility] LABORATORIES - [address] [place], [place] [address] [facility] (ABNORMAL) Thromboelastograph, Kaolin, Blood (06/15/2013 7:33 PM VIDEO GAMES MECHANIC) [facility] Method Time Signature R Time 6.4 4.0 - 9.0 [facility] MIN LABORATORIES [facility] K Time 1.8 1.0 - 1.8 [facility] MIN LABORATORIES - [facility] R + K 8.2 4.9 - 10.8 [facility] MIN LABORATORIES - [facility] Angle 64.9 64.0 - 78.1 [facility] DEGREES LABORATORIES - [facility] Maximum 55.2 (L) 57.1 - 72.6 [facility] Amplitude MM LABORATORIES - [facility] Ly30 4.6 0.0 - 4.8 % [facility] Specimen Anatomical Collection Method Collection Time Receive d Time (Source) Location / / Volume Laterality 06/15/2013 7:33 PM 3 7:33 VIDEO GAMES MECHANIC PM VIDEO GAMES MECHANIC Jaxson Calhoun M.D. LAB BLOOD NON ADD-ON Performing Organization Address City/State/ZIP Code Phon e Number [facility] LABORATORIES - [address] [place], [place] [address] [facility] PT (Prothrombin Time) with INR (06/15/2013 7:31 PM VIDEO GAMES MECHANIC) [facility] Method Time Signature Prothrombin 13.1 9.5 - 13.8 [facility] Time, P SEC LABORATORIES [facility] INR 1.2 0.8 - 1.2 [facility] Specimen Anatomical Collection Method Collection Time Receive d Time (Source) Location / / Volume Laterality 06/15/2013 7:31 PM 3 7:31 VIDEO GAMES MECHANIC PM VIDEO GAMES MECHANIC Historical Provider LAB BLOOD ADD-ON Performing Organization Address City/State/ZIP Code Phon e Number [facility] LABORATORIES - [address] [place], [place] [address] [facility] Fibrinogen (06/15/2013 7:31 PM VIDEO GAMES MECHANIC) P athologist Signature Fibrinogen, P 375 200 - 375 [facility] MG/DL LABORATORIES [facility] Specimen Anatomical Collection Method Collection Time Receive d Time (Source) Location / / Volume Laterality 06/15/2013 7:31 PM 3 7:31 VIDEO GAMES MECHANIC PM VIDEO GAMES MECHANIC Historical Provider LAB BLOOD ADD-ON Performing Organization Address City/[facility]/ZIP Code Phon e Number [facility] LABORATORIES - [address] [place] [phone] [facility] (ABNORMAL) Blood Gas with Coox, Arterial (06/15/2013 7:20 PM VIDEO GAMES MECHANIC) Patholo gist Method Time Signature Arterial L-Radial [facility] Sample Site [facility] FIO2 0.21 .21=AIR [facility] pCO2 35 35 - 45 [facility] MM HG [facility] pH 7.46 (H) 7.35 - [facility] 7.45 PH [facility] Base Excess 1 -2 - 2 [facility] MMOL/L [facility] HCO3 24 22 - 26 [facility] MMOL/L [facility] COHb 2.5 <3.0 % [facility] MetHb 1.1 <1.6 % [facility] Spont. 20 [facility] breaths/min [facility] pO2 69 (L) 80 - 100 [facility] MM HG [facility] Hb 8.1 (L) 13.5 - [facility] 17.5 G/DL [facility] O2Hb 91.8 (L) 94.0 - [facility] 98.0 % [facility] CtO2 10.5 (L) 21.0 - [facility] 23.0 VOL [facility] Specimen Anatomical Collection Method Collection Time Receive d Time (Source) Location / / Volume Laterality 06/15/2013 7:20 PM 3 7:20 VIDEO GAMES MECHANIC PM VIDEO GAMES MECHANIC Historical Provider LAB BLOOD NON ADD-ON Performing Organization Address City/State/ZIP Code Phon e Number [facility] LABORATORIES - [address] [address] [facility] Prepare Red Blood Cells (06/15/2013 7:10 PM VIDEO GAMES MECHANIC) Analysis Performed At Patho logist Time Signature HXRBC # UNITS 1 [facility] TRANSFUSED [facility] HXRBC UNIT INFO RBC [facility] Comment: Unit Blood Type O Pos Unit Number [id number] Component Type Red Blood Cells - -3 Le ukoreduced Issue Date/Time [id number] Specimen (Source) Anatomical Collection Method Collection Time Re ceived Time Location / / Volume Laterality 06/15/2013 7:10 PM VIDEO GAMES MECHANIC Historical Provider BLOOD BANK PRODUCT ORDERABLE S Performing Organization Address City/[facility]/ZIP Code Phon e Number [facility] LABORATORIES - [address] [phone] [facility] Prepare platelets (06/15/2013 7:05 PM VIDEO GAMES MECHANIC) [facility] Method Time Signature HXPLT # UNITS 1 [facility] TRANSFUSED [facility] HXPLATELETS UNIT PLT [facility] INFO [facility] Comment: Unit Blood Type O Pos Unit Number [id number] Component Type Platelets, Apheresis Leuk oreduced, Irradiated Issue Date/Time [id number] Specimen (Source) Anatomical Collection Method Collection Time Re ceived Time Location / / Volume Laterality 06/15/2013 7:05 PM VIDEO GAMES MECHANIC Historical Provider BLOOD BANK PRODUCT ORDERABLE S Performing Organization Address City/[facility]/ZIP Code Phon e Number [facility] LABORATORIES - [address] [address] [facility] (ABNORMAL) Glucose, POCT (06/15/2013 5:47 PM VIDEO GAMES MECHANIC) [facility] Method Time Signature Glucose, 150 (H) 70 - 140 [facility] POCT, B MG/DL LABORATORIES - [facility] Sample Site, Capillary [facility] Blood Gas, LABORATORIES - POCT [facility] Specimen Anatomical Collection Method Collection Time Receive d Time (Source) Location / / Volume Laterality 06/15/2013 5:47 PM 3 5:47 VIDEO GAMES MECHANIC PM VIDEO GAMES MECHANIC Historical Provider LAB POCT ORDERABLES-MANUAL Performing Organization Address City/[facility]/ZIP Code Phon e Number [facility] LABORATORIES - [address] [address] [facility] PT (Prothrombin Time) with INR (06/15/2013 5:47 PM VIDEO GAMES MECHANIC) [facility] Method Time Signature Prothrombin 13.6 9.5 - 13.8 [facility] Time, P SEC LABORATORIES [facility] INR 1.2 0.8 - 1.2 [facility] Specimen Anatomical Collection Method Collection Time Receive d Time (Source) Location / / Volume Laterality 06/15/2013 5:47 PM 3 5:47 VIDEO GAMES MECHANIC PM VIDEO GAMES MECHANIC Emeka Emily M.B.B.S. LAB BLOOD ADD-ON Performing Organization Address City/State/ZIP Code Phon e Number [facility] LABORATORIES - [address] [place], [place] [address] [facility] Fibrinogen (06/15/2013 5:47 PM VIDEO GAMES MECHANIC) P athologist Signature Fibrinogen, P 354 200 - 375 [facility] MG/DL LABORATORIES - [facility] Specimen Anatomical Collection Method Collection Time Receive d Time (Source) Location / / Volume Laterality 06/15/2013 5:47 PM 3 5:47 VIDEO GAMES MECHANIC PM VIDEO GAMES MECHANIC Emeka Ram.S. LAB BLOOD ADD-ON Performing Organization Address City/State/ZIP Code Phon e Number [facility] LABORATORIES - [address] [place], [place] [address] [facility] APTT (Activated Partial Thromboplastin Time) (06/15/2013 5:47 PM VIDEO GAMES MECHANIC) P athologist [facility] APTT, P 30 28 - 38 SEC [facility] Specimen Anatomical Collection Method Collection Time Receive d Time (Source) Location / / Volume Laterality 06/15/2013 5:47 PM 3 5:47 VIDEO GAMES MECHANIC PM VIDEO GAMES MECHANIC Emeka Ram.S. LAB BLOOD ADD-ON Performing Organization Address City/State/[facility] Code Phon e Number [facility] LABORATORIES - [address] [address] [facility] (ABNORMAL) CBC without Differential (06/15/2013 5:47 PM VIDEO GAMES MECHANIC) [facility] Method Time Signature Hemoglobin 7.8 (L) 13.5 - [facility] 17.5 G/DL [facility] Hematocrit 22.2 (L) 38.8 - [facility] 50.0 % [facility] RBC Distrib 14.9 11.8 - [facility] Width 15.6 % [facility] Platelet Count 50 (L) 150 - 450 [facility] X10(9)/L [facility] Erythrocytes 2.58 (L) 4.32 - [facility] 5.72 LABORATORIES - X10(12)/L [facility] MCV 86.0 81.2 - [facility] 95.1 FL LABORATORIES [facility] Leukocytes 6.8 3.5 - [facility] 10.5 LABORATORIES - X10(9)/L [facility] Specimen Anatomical Collection Method Collection Time Receive d Time (Source) Location / / Volume Laterality 06/15/2013 5:47 PM 3 5:47 VIDEO GAMES MECHANIC PM VIDEO GAMES MECHANIC Emeka CottrellB.S. LAB BLOOD ADD-ON Performing Organization Address City/[facility] Phon e Number [facility] - [address] [address] [facility] (ABNORMAL) Thromboelastograph, Kaolin, Blood (06/15/2013 5:43 PM VIDEO GAMES MECHANIC) Patholo gist Method Time Signature R Time 7.7 4.0 - 9.0 [facility] K Time 2.5 (H) 1.0 - 1.8 [facility] MIN [facility] Maximum 58.4 57.1 - 72.6 [facility] Amplitude MM [facility] Ly30 0.7 0.0 - 4.8 % [facility] R + K 10.2 4.9 - 10.8 [facility] Angle 56.6 (L) 64.0 - 78.1 [facility] DEGREES [facility] Specimen Anatomical Collection Method Collection Time Receive d Time (Source) Location / / Volume Laterality 06/15/2013 5:43 PM 3 5:43 VIDEO GAMES MECHANIC PM VIDEO GAMES MECHANIC Emeka CottrellB.S. LAB BLOOD NON ADD-ON Performing Organization Address City/[facility] Phon e Number [facility] - [address] [phone] [facility] Prepare fresh frozen plasma (06/15/2013 3:57 PM VIDEO GAMES MECHANIC) Analysis Performed At Path logist Time Signature HXFFP # UNITS 3 [facility] TRANSFUSED [facility] HXFFP UNIT INFO FFP [facility] Comment: Unit Blood Type O Pos Unit Number [id number] Component Type Thawed PLASMA Issue Date/Time Unit Blood Type O Pos Unit Number [id number] Component Type Thawed PLASMA Issue Date/Time Unit Blood Type O Neg Unit Number [id number] Component Type Thawed PLASMA Issue Date/Time [id number] Specimen (Source) Anatomical Collection Method Collection Time Re ceived Time Location / / Volume Laterality 06/15/2013 3:57 PM VIDEO GAMES MECHANIC Historical Provider BLOOD BANK PRODUCT ORDERABLE S Performing Organization Address City/State/ZIP Code Phon e Number [facility] LABORATORIES - [address] [place], [place] [address] [facility] US Abdomen Limited plus Abdomen Doppler (06/15/2013 3:56 PM VIDEO GAMES MECHANIC) Anatomical Region Laterality Modality Abdomen N/A Ultrasound Specimen (Source) Anatomical Collection Method Collection Time Re ceived Time Location / / Volume Laterality 06/15/2013 3:56 PM VIDEO GAMES MECHANIC Narrative 06/15/2013 4:25 PM VIDEO GAMES MECHANIC 15-Jun-2013 15:56:00 ??Exam: US Abd Lmtd with Doppler Cmpl Indications: Liver Transplant Complicati on h/o Portal vein thrombosis [id number] stat port ORIGINAL REPORT - 15-Jun-2013 16:25:00 [...] Transplant Complicati on h/o Portal vein thrombosis [id number] stat port ORIGINAL REPORT - 15-Jun-2013 16:25:00 [...] effusion. Electronically signed by: Evelio Roman [id number] 15-Jun-2013 16:25 Tomeka HEREDIA US PROCEDURES Prepare platelets (06/15/2013 3:25 PM VIDEO GAMES MECHANIC) [facility] Method Time Signature HXPLT # UNITS 1 [facility] TRANSFUSED [facility] HXPLATELETS UNIT PLT [facility] INFO [facility] Comment: Unit Blood Type A Pos Unit Number [id number] Component Type Platelets, Apheresis Leuk oreduced, Irradiated Issue Date/Time [id number] Specimen (Source) Anatomical Collection Method Collection Time Re ceived Time Location / / Volume Laterality 06/15/2013 3:25 PM VIDEO GAMES MECHANIC Historical Provider BLOOD BANK PRODUCT ORDERABLE S Performing Organization Address City/[facility]/ZIP Code Phon e Number [facility] LABORATORIES - [address] [place], [place] [address] [facility] Prepare Red Blood Cells (06/15/2013 3:25 PM VIDEO GAMES MECHANIC) Analysis Performed At Patho logist Time Signature HXRBC # UNITS 2 [facility] TRANSFUSED [facility] HXRBC UNIT INFO RBC [facility] Comment: Unit Blood Type O Pos Unit Number [id number] Component Type Red Blood Cells - -3 Le ukoreduced Issue Date/Time [id number] Unit Blood Type O Pos Unit Number [id number] Component Type Red Blood Cells - -3 Le ukoreduced Issue Date/Time [id number] Specimen (Source) Anatomical Collection Method Collection Time Re ceived Time Location / / Volume Laterality 06/15/2013 3:25 PM VIDEO GAMES MECHANIC Historical Provider BLOOD BANK PRODUCT ORDERABLE S Performing Organization Address City/[facility] Phon e Number [facility] LABORATORIES - [address] [place] [address] [facility] Thromboelastograph, Kaolin, Blood (06/15/2013 3:05 PM VIDEO GAMES MECHANIC) P athologist Signature R + K . MIN [facility] Comment: No clotting detected Angle . [facility] Comment: No clotting detected R Time . MIN [facility] Comment: No clotting detected K Time . MIN [facility] Comment: No clotting detected Maximum Amplitude . MM [facility] Comment: No clotting detected Ly30 . % [facility] Comment: No clotting detected Specimen Anatomical Collection Method Collection Time Receive d Time (Source) Location / / Volume Laterality 06/15/2013 3:05 PM 3 3:05 VIDEO GAMES MECHANIC PM VIDEO GAMES MECHANIC Earl Barron LAB BLOOD NON ADD-ON Performing Organization Address City/[facility]/ZIP Code Phon e Number [facility] LABORATORIES - [address] [place] [phone] [facility] (ABNORMAL) CBC without Differential (06/15/2013 3:02 PM VIDEO GAMES MECHANIC) [facility] Method Time Signature Hemoglobin 7.1 (L) 13.5 - [facility] 17.5 G/DL [facility] Hematocrit 19.8 (L) 38.8 - [facility] 50.0 % LABORATORIES - [facility] Leukocytes 8.2 3.5 - [facility] 10.5 LABORATORIES - X10(9)/L [facility] Erythrocytes 2.40 (L) 4.32 - [facility] 5.72 LABORATORIES - X10(12)/L [facility] MCV 82.5 81.2 - [facility] 95.1 FL LABORATORIES - [facility] RBC Distrib 15.1 11.8 - [facility] Width 15.6 % [facility] - [facility] Platelet Count 49 (L) 150 - 450 [facility] X10(9)/L [facility] - [facility] Specimen Anatomical Collection Method Collection Time Receive d Time (Source) Location / / Volume Laterality 06/15/2013 3:02 PM 3 3:02 VIDEO GAMES MECHANIC PM VIDEO GAMES MECHANIC Historical Provider LAB BLOOD ADD-ON Performing Organization Address City/[facility] Code Phon e Number [facility] LABORATORIES - [address] [place] [id number] [facility] Fibrinogen (06/15/2013 2:43 PM VIDEO GAMES MECHANIC) P athologist Signature Fibrinogen, P 312 200 - 375 [facility] MG/DL [facility] Specimen Anatomical Collection Method Collection Time Receive d Time (Source) Location / / Volume Laterality 06/15/2013 2:43 PM 3 2:43 VIDEO GAMES MECHANIC PM VIDEO GAMES MECHANIC Earl Barron LAB BLOOD ADD-ON Performing Organization Address City/[facility] Phon e Number [facility] LABORATORIES - [address] [place] [phone] [facility] (ABNORMAL) PT (Prothrombin Time) with INR (06/15/2013 2:43 PM VIDEO GAMES MECHANIC) [facility] Method Time Signature Prothrombin 14.8 (H) 9.5 - [facility] Time, P 13.8 SEC LABORATORIES [facility] INR 1.3 0.8 - 1.2 [facility] LABORATORIES [facility] Specimen Anatomical Collection Method Collection Time Receive d Time (Source) Location / / Volume Laterality 06/15/2013 2:43 PM 3 2:43 VIDEO GAMES MECHANIC PM VIDEO GAMES MECHANIC Earl Barron LAB BLOOD ADD-ON Performing Organization Address City/[facility]/ZIP Code Phon e Number [facility] LABORATORIES - [address] APTT (Activated Partial Thromboplastin Time) (06/15/2013 2:43 PM VIDEO GAMES MECHANIC) P athologist Signature APTT, P 33 28 - 38 SEC [facility] Specimen Anatomical Collection Method Collection Time Receive d Time (Source) Location / / Volume Laterality 06/15/2013 2:43 PM 3 2:43 VIDEO GAMES MECHANIC PM VIDEO GAMES MECHANIC Historical Provider LAB BLOOD ADD-ON Performing Organization Address City/[facility] Phon e Number [facility] - [address] Lactate (06/15/2013 1:19 PM VIDEO GAMES MECHANIC) P athologist Signature Lactate, P 1.3 0.6 - 2.3 [facility] MMOL/L [facility] Specimen Anatomical Collection Method Collection Time Receive d Time (Source) Location / / Volume Laterality 06/15/2013 1:19 PM 3 1:19 VIDEO GAMES MECHANIC PM VIDEO GAMES MECHANIC Historical Provider LAB BLOOD NON ADD-ON Performing Organization Address City/[facility] Phon e Number [facility] LABORATORIES - [address] [place] [phone] 05 [facility] Phosphorus Inorganic (06/15/2013 1:19 PM VIDEO GAMES MECHANIC) Analysis Performed At Patho logist Time Signature Phosphorus 2.7 2.5 - 4.5 [facility] (Inorganic), S MG/DL [facility] Specimen Anatomical Collection Method Collection Time Receive d Time (Source) Location / / Volume Laterality 06/15/2013 1:19 PM 3 1:19 VIDEO GAMES MECHANIC PM VIDEO GAMES MECHANIC Historical Provider LAB BLOOD ADD-ON Performing Organization Address City/[facility] Phon e Number [facility] - [address] [place] [phone] 05 [facility] Magnesium (06/15/2013 1:19 PM VIDEO GAMES MECHANIC) athologist Signature Magnesium, S 1.9 1.7 - 2.3 [facility] MG/DL [facility] Specimen Anatomical Collection Method Collection Time Receive d Time (Source) Location / / Volume Laterality 06/15/2013 1:19 PM 3 1:19 VIDEO GAMES MECHANIC PM VIDEO GAMES MECHANIC Historical Provider LAB BLOOD ADD-ON Performing Organization Address [facility] Phon e Number [facility] LABORATORIES - [address] [place], [place] [address] [facility] Antibody Screen, RBC (06/15/2013 1:18 PM VIDEO GAMES MECHANIC) Patholo gist Method Time Signature Antibody Negative [facility] Screen [facility] Specimen (Source) Anatomical Collection Method Collection Time Re ceived Time Location / / Volume Laterality 06/15/2013 1:18 PM VIDEO GAMES MECHANIC Historical Provider LAB BLOOD BANK TEST ORDERABL ES Performing Organization Address City/[facility]/ZIP Code Phon e Number [facility] LABORATORIES - 200 [place], [place] [address] [facility] ABORh, RBC (06/15/2013 1:18 PM VIDEO GAMES MECHANIC) athologist Signature HXABO/RH BLOOD O POS [facility] TYPE [facility] Specimen (Source) Anatomical Collection Method Collection Time Re ceived Time Location / / Volume Laterality 06/15/2013 1:18 PM VIDEO GAMES MECHANIC Historical Provider LAB BLOOD BANK TEST ORDERABL ES Performing Organization Address [facility] Phon e Number [facility] - [address] [place] [phone] 05 [facility] (ABNORMAL) CBC without Differential (06/15/2013 1:13 PM VIDEO GAMES MECHANIC) P athologist Signature Hemoglobin 5.9 (<) 13.5 - [facility] 17.5 G/DL [facility] Comment: Rechecked Hematocrit 16.8 (L) 38.8 - 50.0 % [facility] LAB ORATORIES - [facility] S RBC Distrib Width 15.5 11.8 - 15.6 % [facility] S Platelet Count 34 (<) 150 - 450 X10(9)/L [facility] Leukocytes 6.8 3.5 - 10.5 X10(9)/L [facility] Erythrocytes 2.00 (L) 4.32 - 5.72 X10(12)/L [facility][NOTE 3] S MCV 84.0 81.2 - 95.1 FL [facility] LAB ORATORIES - [facility] Specimen Anatomical Collection Method Collection Time Receive d Time (Source) Location / / Volume Laterality 06/15/2013 1:13 PM 3 1:13 VIDEO GAMES MECHANIC PM VIDEO GAMES MECHANIC Historical Provider LAB BLOOD ADD-ON Performing Organization Address City/[facility] Phon e Number [facility] LABORATORIES - [address] (ABNORMAL) Electrolyte Panel with Creatinine Remy (06/15/2013 1:13 PM VIDEO GAMES MECHANIC) [facility] Method Time Signature Creatinine, 2.0 (H) 0.9 - 1.4 [facility] Remy MG/DL LABORATORIES - [facility] Potassium, P 3.7 3.6 - 5.2 [facility] MMOL/L LABORATORIES - [facility] Chloride, S 96 (L) 100 - 108 [facility] MMOL/L [facility] BUN (Blood 35 (H) 8 - 24 [facility] Urea MG/DL LABORATORIES - Nitrogen), S [facility] HX 22 22 - 29 [facility] Bicarbonate, MMOL/L LABORATORIES - P/S [facility] Glucose, S 148 (H) 70 - 140 [facility] MG/DL [facility] - [facility] Sodium, P 129 (L) 135 - 145 [facility] MMOL/L [facility] - [facility] Specimen Anatomical Collection Method Collection Time Receive d Time (Source) Location / / Volume Laterality 06/15/2013 1:13 PM 3 1:13 VIDEO GAMES MECHANIC PM VIDEO GAMES MECHANIC Historical Provider LAB BLOOD ADD-ON Performing Organization Address City/[facility] Phon e Number [facility] LABORATORIES - [address] [place] [phone] 05 [facility] Prepare platelets (06/15/2013 1:09 PM VIDEO GAMES MECHANIC) [facility] Method Time Signature HXPLT # UNITS 1 [facility] TRANSFUSED LABORATORIES [facility] HXPLATELETS UNIT PLT [facility] INFO [facility] Comment: Unit Blood Type O Pos Unit Number [id number] Component Type Platelets, Apheresis Leuk oreduced, Irradiated, Bag 2 Issue Date/Time [id number] Specimen (Source) Anatomical Collection Method Collection Time Re ceived Time Location / / Volume Laterality 06/15/2013 1:09 PM VIDEO GAMES MECHANIC Historical Provider BLOOD BANK PRODUCT ORDERABLE S Performing Organization Address City/[facility] Phon e Number [facility] LABORATORIES - [address] [place] [address] 05 [facility] Prepare Red Blood Cells (06/15/2013 12:54 PM VIDEO GAMES MECHANIC) Analysis Performed At Patho logist Time Signature HXRBC # UNITS 2 [facility] TRANSFUSED [facility] HXRBC UNIT INFO RBC [facility] Comment: Unit Blood Type O Pos Unit Number [id number] Component Type Red Blood Cells - -3 Le ukoreduced Issue Date/Time [id number] Unit Blood Type O Pos Unit Number [id number] Component Type Red Blood Cells - -3 Le ukoreduced Issue Date/Time [id number] Specimen (Source) Anatomical Collection Method Collection Time Re ceived Time Location / / Volume Laterality 06/15/2013 12:54 PM VIDEO GAMES MECHANIC Historical Provider BLOOD BANK PRODUCT ORDERABLE S Performing Organization Address [facility] Code Phon e Number [facility] LABORATORIES - [address] (ABNORMAL) ABG and Lytes, POCT (06/15/2013 12:46 PM VIDEO GAMES MECHANIC) Patholo gist Method Time Signature Arterial Venstick [facility] Sample Site [facility] Comment: Performed at the Point of Care pH 7.39 7.35 - 7.45 [facility] Comment: Performed at the Point of Care Base Excess -2 -2 - 2 MMOL/L [facility] LA [facility] Comment: Performed at the Point of Care HCO3 23 21 - 25 MMOL/L [facility] LAB [facility] Comment: Performed at the Point of Care Sodium, B 128 (L) 135 - 145 MMOL/L [facility] L [facility] Comment: Performed at the Point of Care Potassium, B 3.9 3.6 - 5.2 MMOL/L [facility] Comment: Performed at the Point of Care Glucose, POCT, B 145 (H) 70 - 140 MG/DL [facility] Comment: Performed at the Point of Care Hematocrit, POCT, B 16.0 (L) 38.8 - 50.0 % [facility] Comment: Performed at the Point of Care pCO2 39 35 - 45 MM HG [facility] LABO RATORIES [facility] Comment: Performed at the Point of Care pO2 18 (L) 70 - 100 MM HG [facility] LAB ORATORIES [facility] Comment: Performed at the Point of Care Calcium, Ionized, B 5.70 (H) 4.65 - 5.30 MG/DL [facility] Comment: Performed at the Point of Care pH 7.39 7.35 - 7.45 [facility] LABORA TORIES [facility] Comment: Performed at the Point of Care Specimen Anatomical Collection Method Collection Time Receive d Time (Source) Location / / Volume Laterality 06/15/2013 12:46 06/15/2013 PM VIDEO GAMES MECHANIC 12:46 PM VIDEO GAMES MECHANIC Historical Provider LAB BLOOD NON ADD-ON Performing Organization Address City/[facility] Phon e Number [facility] LABORATORIES - [address] [place] [address] 05 [facility] (ABNORMAL) Glucose, POCT (06/15/2013 12:14 PM VIDEO GAMES MECHANIC) Patholo gist Method Time Signature Last Intake 2-3 hours [facility] Glucose, 150 (H) 70 - 140 [facility] POCT, B MG/DL LABORATORIES [facility] Sample Site, Capillary [facility] Blood Gas, LABORATORIES - POCT [facility] Specimen Anatomical Collection Method Collection Time Receive d Time (Source) Location / / Volume Laterality 06/15/2013 12:14 06/15/2013 PM VIDEO GAMES MECHANIC 12:14 PM VIDEO GAMES MECHANIC Historical Provider LAB POCT ORDERABLES-MANUAL Performing Organization Address City/[facility] Phon e Number [facility] LABORATORIES - [address] [place] [address] 05 [facility] (ABNORMAL) APTT (Activated Partial Thromboplastin Time) (06/15/2013 8:59 AM VIDEO GAMES MECHANIC) P athologist Signature APTT, P 40 (H) 28 - 38 SEC [facility] Specimen Anatomical Collection Method Collection Time Receive d Time (Source) Location / / Volume Laterality 06/15/2013 8:59 AM 3 8:59 VIDEO GAMES MECHANIC AM VIDEO GAMES MECHANIC Samanta Villa P.A.-C., M.S. LAB BLOOD ADD-ON Performing Organization Address City/[facility] Phon e Number [facility] LABORATORIES - [address] [place] [address] 05 [facility] HLA Class II Low Resolution Typing (06/15/2013 7:45 AM VIDEO GAMES MECHANIC) [facility] Signature Class II Low [id number] [facility] Res Donor LABORATORIES - [facility] DRB1 Locus 1,13 Not Applicable [facility] Serologic LABORATORIES [facility] DRB1 Locus 01,13 Not Applicable [facility] LABORATORIES [facility] [id number] Locus 52 Not Applicable [facility] Serologic LABORATORIES - [facility] DRB3 Locus 01 Not Applicable [facility] Molecular LABORATORIES [facility] DQB1 Locus 5,6 Not Applicable [facility] Serologic LABORATORIES [facility] DQB1 Locus 05,06 Not Applicable [facility] Molecular LABORATORIES [facility] Comment: Method: HLA Typing Defined by M qLearningcular Techniques Specimen Anatomical Collection Method Collection Time Receive d Time (Source) Location / / Volume Laterality 06/15/2013 7:45 AM 3 7:45 VIDEO GAMES MECHANIC AM VIDEO GAMES MECHANIC Historical Provider LAB HLA ORDERABLES Performing Organization Address City/[facility] Phon e Number [facility] LABORATORIES - [address] [place] [address] 05 [facility] HLA Class I Low Resolution Typing (06/15/2013 7:45 AM VIDEO GAMES MECHANIC) [facility] Signature A Locus 24,26 Not Applicable [facility] Molecular LABORATORIES [facility] B Locus 27,38 Not Applicable [facility] Serologic LABORATORIES [facility] B Locus 27,38 Not Applicable [facility] Molecular LABORATORIES [facility] C Locus 2,12 Not Applicable [facility] Serologic LABORATORIES [facility] Class I Low [id number] [facility] Res Donor LABORATORIES - [facility] A Locus 24,26 Not Applicable [facility] Serologic LABORATORIES [facility] C Locus 02,12 Not Applicable [facility] Molecular LABORATORIES [facility] Bw Serologic 4,4 Not Applicable [facility] Comment: Method: HLA Typing Defined by M qLearningcular Techniques Specimen Anatomical Collection Method Collection Time Receive d Time (Source) Location / / Volume Laterality 06/15/2013 7:45 AM 3 7:45 VIDEO GAMES MECHANIC AM VIDEO GAMES MECHANIC Historical Provider LAB HLA ORDERABLES Performing Organization Address City/[facility]/ZIP Code Phon e Number [facility] LABORATORIES - [address] [place] [address] 05 [facility] HLA CDC Crossmatch (06/15/2013 7:42 AM VIDEO GAMES MECHANIC) [facility] Method Time [facility] CDC Current Negative Not Applicable [facility] T-Cell Result LABORATORIES - [facility] Comment: Method: Lymphocytotoxicity (Ser ology) CDC Crossmatch Donor [id number] [facility] LAB[facility]ATORIES - [facility] CDC Recipient Current Serum Date 06/12/2013 [facility] Specimen Anatomical Collection Method Collection Time Receive d Time (Source) Location / / Volume Laterality 06/15/2013 7:42 AM 3 7:42 VIDEO GAMES MECHANIC AM VIDEO GAMES MECHANIC Historical Provider LAB HLA ORDERABLES Performing Organization Address City/[facility] Code Phon e Number [facility] LABORATORIES - [address] [place], [place] [address] [facility] HLA Crossmatch Donor Draw (06/15/2013 7:42 AM VIDEO GAMES MECHANIC) [facility] Method Time [facility] FXM [id number] [facility] Crossmatch LABORATORIES - Donor [facility] FXM Recipient 06/12/2013 [facility] Current Serum LABORATORIES - Date [facility] FXM Current Negative Not [facility] T-Cell Result Applicable LABORATORIES - [facility] FXM Current 11 <=52 [facility] T-Cell MCS LABORATORIES - [facility] FXM Current Negative Not [facility] B-Cell Result Applicable LABORATORIES - [facility] FXM Current 15 <=106 [facility] B-Cell MCS LABORATORIES - [facility] Comment: Method: Flow Cytometry Specimen Anatomical Collection Method Collection Time Receive d Time (Source) Location / / Volume Laterality 06/15/2013 7:42 AM 3 7:42 VIDEO GAMES MECHANIC AM VIDEO GAMES MECHANIC Historical Provider LAB HLA ORDERABLES Performing Organization Address City/[facility] Phon e Number [facility] LABORATORIES - [address] [place] [phone] 05 [facility] Glucose, POCT (06/15/2013 7:33 AM VIDEO GAMES MECHANIC) [facility] Method Time [facility] Glucose, 118 70 - 140 [facility] POCT, B MG/DL LABORATORIES - [facility] Sample Site, Capillary [facility] Blood Gas, LABORATORIES - POCT [facility] Last Intake > 4 hours [facility] Specimen Anatomical Collection Method Collection Time Receive d Time (Source) Location / / Volume Laterality 06/15/2013 7:33 AM 3 7:33 VIDEO GAMES MECHANIC AM VIDEO GAMES MECHANIC Historical Provider LAB POCT ORDERABLES-MANUAL Performing Organization Address City/[facility]/ZIP Code Phon e Number [facility] LABORATORIES - [address] [place] [address] 05 [facility] (ABNORMAL) APTT (Activated Partial Thromboplastin Time) (06/15/2013 3:33 AM VIDEO GAMES MECHANIC) P athologist Signature APTT, P 41 (H) 28 - 38 SEC [facility] Specimen Anatomical Collection Method Collection Time Receive d Time (Source) Location / / Volume Laterality 06/15/2013 3:33 AM 3 3:33 VIDEO GAMES MECHANIC AM VIDEO GAMES MECHANIC Radha Block APRN, C.N.P., M.S.N., R.N. LAB BLOOD ADD-ON Performing Organization Address City/[facility]/ZIP [facility] Phon e Number [facility] LABORATORIES - [address] [place] [address] 05 [facility] PT (Prothrombin Time) with INR (06/15/2013 3:33 AM VIDEO GAMES MECHANIC) [facility] Method Time Signature Prothrombin 13.3 9.5 - 13.8 [facility] Time, P SEC LABORATORIES - [facility] INR 1.1 0.8 - 1.2 [facility] Specimen Anatomical Collection Method Collection Time Receive d Time (Source) Location / / Volume Laterality 06/15/2013 3:33 AM 3 3:33 VIDEO GAMES MECHANIC AM VIDEO GAMES MECHANIC Radha Block APRN, C.N.P., M.S.N., R.N. LAB BLOOD ADD-ON Performing Organization Address City/[facility]/ZIP [facility] Phon e Number [facility] LABORATORIES - [address] [place] [address] 05 [facility] (ABNORMAL) CBC with Differential - No Alerts (06/15/2013 3:32 AM VIDEO GAMES MECHANIC) [facility] Method Time Signature Lymphocytes 0.42 (L) 0.90 - [facility] 2.90 LABORATORIES - X10(9)/L [facility] Monocytes 0.46 0.30 - [facility] 0.90 LABORATORIES - X10(9)/L [facility] Hemoglobin 8.0 (L) 13.5 - [facility] 17.5 G/DL LABORATORIES - [facility] Hematocrit 22.2 (L) 38.8 - [facility] 50.0 % LABORATORIES - [facility] Erythrocytes 2.62 (L) 4.32 - [facility] 5.72 LABORATORIES - X10(12)/L [facility] MCV 84.7 81.2 - [facility] 95.1 FL LABORATORIES - [facility] RBC Distrib 15.4 11.8 - [facility] Width 15.6 % LABORATORIES - [facility] Neutrophils 5.38 1.70 - [facility] 7.00 LABORATORIES - X10(9)/L [facility] Eosinophils 0.01 (L) 0.05 - [facility] 0.50 LABORATORIES - X10(9)/L [facility] Basophils 0.00 0.00 - [facility] 0.30 LABORATORIES - X10(9)/L [facility] Platelet Count 39 (L) 150 - 450 [facility] X10(9)/L LABORATORIES - [facility] Leukocytes 6.3 3.5 - [facility] 10.5 LABORATORIES - X10(9)/L [facility] Specimen Anatomical Collection Method Collection Time Receive d Time (Source) Location / / Volume Laterality 06/15/2013 3:32 AM 3 3:32 VIDEO GAMES MECHANIC AM VIDEO GAMES MECHANIC Janette Ho APRNNFabrice., M.S.N., R.N. LAB BLOOD NON ADD-ON Performing Organization Address City/[facility] Phon e Number [facility] LABORATORIES - [address] [place], [place] [address] [facility] (ABNORMAL) ALT (Alanine Aminotransferase) (06/15/2013 3:32 AM VIDEO GAMES MECHANIC) Component Value Ref Test Analysis Performed At [facility] Range Method Time Signature Alanine 102 (H) 7 - 55 [facility] Aminotransferase U/L LABORATORIES - (ALT), S [facility] Specimen Anatomical Collection Method Collection Time Receive d Time (Source) Location / / Volume Laterality 06/15/2013 3:32 AM 3 3:32 VIDEO GAMES MECHANIC AM VIDEO GAMES MECHANIC Janette Ho APRNNFabrice., M.S.N., R.N. LAB BLOOD ADD-ON Performing Organization Address City/[facility] Phon e Number [facility] LABORATORIES - [address] [place] [phone] 05 [facility] Magnesium (06/15/2013 3:32 AM VIDEO GAMES MECHANIC) athologist Signature Magnesium, S 1.9 1.7 - 2.3 [facility] MG/DL LABORATORIES - [facility] Specimen Anatomical Collection Method Collection Time Receive d Time (Source) Location / / Volume Laterality 06/15/2013 3:32 AM 3 3:32 VIDEO GAMES MECHANIC AM VIDEO GAMES MECHANIC Radha Block APRN, C.N.P., M.S.N., R.N. LAB BLOOD ADD-ON Performing Organization Address City/[facility]/ZIP Code Phon e Number [facility] LABORATORIES - [address] [phone] 05 [facility] Alkaline Phosphatase (06/15/2013 3:32 AM VIDEO GAMES MECHANIC) athologist Signature Alkaline 53 45 - 115 [facility] Phosphatase, S U/L LABORATORIES - [facility] Specimen Anatomical Collection Method Collection Time Receive d Time (Source) Location / / Volume Laterality 06/15/2013 3:32 AM 3 3:32 VIDEO GAMES MECHANIC AM VIDEO GAMES MECHANIC Radha Block APRN, C.N.P., M.S.N., R.N. LAB BLOOD ADD-ON Performing Organization Address City/[facility] Code Phon e Number [facility] LABORATORIES - [address] [phone] 05 [facility] (ABNORMAL) Electrolyte (Chem 4) Panel (06/15/2013 3:32 AM VIDEO GAMES MECHANIC) Patholo gist Method Time Signature Chloride, S 97 (L) 100 - 108 [facility] MMOL/L LABORATORIES - [facility] HX Bicarbonate, 23 22 - 29 [facility] P/S MMOL/L LABORATORIES - [facility] eGFR-Black/Afri 42 (L) >60 [facility] can Peruvian ML/MIN/BS [facility] BUN (Blood Urea 36 (H) 8 - 24 [facility] Nitrogen), S MG/DL [facility] Sodium, S 131 (L) 135 - 145 [facility] MMOL/L [facility] - [facility] Potassium, S 4.0 3.6 - 5.2 [facility] MMOL/L [facility] Creatinine 2.0 (H) 0.8 - 1.3 [facility] MG/DL LABORATORIES - [facility] eGFR 34 (L) >60 [facility] Non-Black/Afric ML/MIN/BS LABORATORIES - an Peruvian A [facility] Anion Gap 11 7 - 15 [facility] LABORATORIES - [facility] Glucose, S 125 70 - 140 [facility] MG/DL LABORATORIES - [facility] Specimen Anatomical Collection Method Collection Time Receive d Time (Source) Location / / Volume Laterality 06/15/2013 3:32 AM 3 3:32 VIDEO GAMES MECHANIC AM VIDEO GAMES MECHANIC Radha Block APRN, C.N.P., M.S.N., R.N. LAB BLOOD ADD-ON Performing Organization Address City/[facility]/ZIP Code Phon e Number [facility] LABORATORIES - [address] [place], [place] [address] [facility] (ABNORMAL) Bilirubin (06/15/2013 3:32 AM VIDEO GAMES MECHANIC) Patholo gist Method Time Signature Bilirubin, 3.2 (H) 0.1 - 1.0 [facility] Total, S MG/DL LABORATORIES - [facility] Bilirubin, 2.3 (H) 0.0 - 0.3 [facility] Direct, S MG/DL LABORATORIES - [facility] Specimen Anatomical Collection Method Collection Time Receive d Time (Source) Location / / Volume Laterality 06/15/2013 3:32 AM 3 3:32 VIDEO GAMES MECHANIC AM VIDEO GAMES MECHANIC Janette Ho APRNNDemetriusP., M.S.N., R.N. LAB BLOOD ADD-ON Performing Organization Address City/[facility]/ZIP Code Phon e Number [facility] LABORATORIES - [address] [phone] 05 [facility] Phosphorus Inorganic (06/15/2013 3:32 AM VIDEO GAMES MECHANIC) Analysis Performed At Patho logist Time Signature Phosphorus 3.5 2.5 - 4.5 [facility] (Inorganic), S MG/DL LABORATORIES - [facility] Specimen Anatomical Collection Method Collection Time Receive d Time (Source) Location / / Volume Laterality 06/15/2013 3:32 AM 3 3:32 VIDEO GAMES MECHANIC AM VIDEO GAMES MECHANIC Janette Ho APRNNDemetriusP., M.S.N., R.N. LAB BLOOD ADD-ON Performing Organization Address City/State/ZIP Code Phon e Number [facility] LABORATORIES - [address] [phone] 05 [facility] Calcium, Total (06/15/2013 3:32 AM VIDEO GAMES MECHANIC) P athologist Signature Calcium, 9.8 8.9 - 10.1 [facility] Total, S MG/DL [facility] Specimen Anatomical Collection Method Collection Time Receive d Time (Source) Location / / Volume Laterality 06/15/2013 3:32 AM 3 3:32 VIDEO GAMES MECHANIC AM VIDEO GAMES MECHANIC Radha Block APRN, C.N.P., M.S.N., R.N. LAB BLOOD ADD-ON Performing Organization Address City/[facility]/ZIP Code Phon e Number [facility] - [address] [phone] 05 [facility] (ABNORMAL) AST (Aspartate Aminotransferase) (06/15/2013 3:32 AM VIDEO GAMES MECHANIC) Analysis Performed At Patho logist Time Signature AST, Total, S 53 (H) 8 - 48 U/L [facility] Specimen Anatomical Collection Method Collection Time Receive d Time (Source) Location / / Volume Laterality 06/15/2013 3:32 AM 3 3:32 VIDEO GAMES MECHANIC AM VIDEO GAMES MECHANIC Radha Block APRN, C.N.P., M.S.N., R.N. LAB BLOOD ADD-ON Performing Organization Address City/State/ZIP Code Phon e Number [facility] LABORATORIES - [address] [phone] 05 [facility] (ABNORMAL) Albumin (06/15/2013 3:32 AM VIDEO GAMES MECHANIC) P athologist Signature Albumin, S 2.5 (L) 3.5 - 5.0 [facility] G/DL [facility] Specimen Anatomical Collection Method Collection Time Receive d Time (Source) Location / / Volume Laterality 06/15/2013 3:32 AM 3 3:32 VIDEO GAMES MECHANIC AM VIDEO GAMES MECHANIC Radha Block APRN, C.N.P., M.S.N., R.N. LAB BLOOD ADD-ON Performing Organization Address City/[facility]/ZIP Code Phon e Number [facility] LABORATORIES - [address] [phone] 05 [facility] Glucose, POCT (06/15/2013 3:26 AM VIDEO GAMES MECHANIC) [facility] Method Time Signature Glucose, 128 70 - 140 [facility] POCT, B MG/DL LABORATORIES [facility] Sample Site, Capillary [facility] Blood Gas, LABORATORIES - POCT [facility] Last Intake > 4 hours [facility] Specimen Anatomical Collection Method Collection Time Receive d Time (Source) Location / / Volume Laterality 06/15/2013 3:26 AM 3 3:26 VIDEO GAMES MECHANIC AM VIDEO GAMES MECHANIC Historical Provider LAB POCT ORDERABLES-MANUAL Performing Organization Address City/[facility]/ZIP Code Phon e Number [facility] LABORATORIES - [address] [place], [place] [address] [facility] (ABNORMAL) APTT (Activated Partial Thromboplastin Time) (06/14/2013 8:58 PM VIDEO GAMES MECHANIC) P athologist Signature APTT, P 40 (H) 28 - 38 SEC [facility] Specimen Anatomical Collection Method Collection Time Receive d Time (Source) Location / / Volume Laterality 06/14/2013 8:58 PM 3 8:58 VIDEO GAMES MECHANIC PM VIDEO GAMES MECHANIC Historical Provider LAB BLOOD ADD-ON Performing Organization Address City/[facility]/ZIP [facility] Phon e Number [facility] LABORATORIES - [address] [phone] 05 [facility] Glucose, POCT (06/14/2013 5:46 PM VIDEO GAMES MECHANIC) [facility] Signature Glucose, 135 70 - 140 [facility] POCT, B MG/DL [facility] - [facility] Sample Site, Capillary [facility] Blood Gas, LABORATORIES - POCT [facility] Last Intake <1 hour [facility] Specimen Anatomical Collection Method Collection Time Receive d Time (Source) Location / / Volume Laterality 06/14/2013 5:46 PM 3 5:46 VIDEO GAMES MECHANIC PM VIDEO GAMES MECHANIC Historical Provider LAB POCT ORDERABLES-MANUAL Performing Organization Address City/[facility] Phon e Number [facility] LABORATORIES - [address] [phone] 05 [facility] Glucose, POCT (06/14/2013 12:31 PM VIDEO GAMES MECHANIC) [facility] Signature Glucose, 139 70 - 140 [facility] POCT, B MG/DL LABORATORIES - [facility] Sample Site, Capillary [facility] Blood Gas, LABORATORIES - POCT [facility] Last Intake 2-3 hours [facility] LABORATORIES - [facility] Specimen Anatomical Collection Method Collection Time Receive d Time (Source) Location / / Volume Laterality 06/14/2013 12:31 06/14/2013 PM VIDEO GAMES MECHANIC 12:31 PM VIDEO GAMES MECHANIC Historical Provider LAB POCT ORDERABLES-MANUAL Performing Organization Address City/State/ZIP Code Phon e Number [facility] LABORATORIES - [address] [place], [place] [address] [facility] US Abdomen Limited plus Abdomen Doppler (06/14/2013 10:50 AM VIDEO GAMES MECHANIC) Anatomical Region Laterality Modality Abdomen N/A Ultrasound Specimen (Source) Anatomical Collection Method Collection Time Re ceived Time Location / / Volume Laterality 06/14/2013 10:50 AM VIDEO GAMES MECHANIC Narrative 06/14/2013 11:16 AM VIDEO GAMES MECHANIC 14-Jun-2013 10:50:00 ??Exam: US Abd Lmtd with Doppler Cmpl Indications: [id number]; [id number]; liver t x w/doppler; Follow up exam [...] vein, measuring up to 163 cm/sec. [facility] resistivity indices range from 0.69 to 0.75. Decreased phasicity within the hepatic veins IVC:......................Normal. Electronically signed by: ?? Evelio Roman MD [id number] 14-Jun-2013 11:16 Procedure Note Evelio Roman M.D. - 09/19/2017Fo rmatting of this note might be different from the original. 14-Jun-2013 10:50:00 Exam: US Abd Lmtd w ith Doppler Cmpl Indications: [id number]; [id number]; liver t x w/doppler; Follow up exam [...] PROCEDURES (ABNORMAL) Glucose, POCT (06/14/2013 7:53 AM VIDEO GAMES MECHANIC) [facility] Method Time Signature Glucose, 142 (H) 70 - 140 [facility] POCT, B MG/DL LABORATORIES - [facility] Sample Site, Capillary [facility] Blood Gas, LABORATORIES - POCT [facility] Specimen Anatomical Collection Method Collection Time Receive d Time (Source) Location / / Volume Laterality 06/14/2013 7:53 AM 3 7:53 VIDEO GAMES MECHANIC AM VIDEO GAMES MECHANIC Historical Provider LAB POCT ORDERABLES-MANUAL Performing Organization Address City/State/ZIP Code Phon e Number [facility] LABORATORIES - [address] [place], [place] [address] [facility] (ABNORMAL) AST (Aspartate Aminotransferase) (06/14/2013 2:06 AM VIDEO GAMES MECHANIC) [facility] Method Time Signature AST, Total, S 116 (H) 8 - 48 U/L [facility] Comment: Drawn From Arterial Line Specimen Anatomical Collection Method Collection Time Receive d Time (Source) Location / / Volume Laterality 06/14/2013 2:06 AM 3 2:06 VIDEO GAMES MECHANIC AM VIDEO GAMES MECHANIC Narrative [facility] - 06/14/2013 3:12 AM VIDEO GAMES MECHANIC Drawn From Arterial Line Otoniel Grijalva P.A.-C., M.S. LAB BLOOD ADD-ON Performing Organization Address City/[facility] Code Phon e Number [facility] [address] [phone] 05 [facility] (ABNORMAL) Cytomegalovirus Ab, IgM and IgG (06/14/2013 2:06 AM VIDEO GAMES MECHANIC) Patholo gist Method Time Signature Cytomegalovirus Positive Negative [facility] Ab, IgG, S (A) [facility] Comment: Drawn From Arterial Line Cytomegalovirus Ab, IgM, S Negative Negative [facility] Comment: Drawn From Arterial Line Specimen Anatomical Collection Method Collection Time Receive d Time (Source) Location / / Volume Laterality 06/14/2013 2:06 AM 3 2:06 VIDEO GAMES MECHANIC AM VIDEO GAMES MECHANIC Narrative [facility] - 06/14/2013 3:31 PM VIDEO GAMES MECHANIC Drawn From Arterial Line Otoniel Grijalva P.A.-C., M.S. LAB MICROBIOLOGY - BLOO D ORDERABLES Performing Organization Address City/[facility] Phon e Number [place] [phone] [facility] (ABNORMAL) Albumin (06/14/2013 2:06 AM VIDEO GAMES MECHANIC) P athologist Signature Albumin, S 2.5 (L) 3.5 - 5.0 [facility] G/DL [facility] Comment: Drawn From Arterial Line Specimen Anatomical Collection Method Collection Time Receive d Time (Source) Location / / Volume Laterality 06/14/2013 2:06 AM 3 2:06 VIDEO GAMES MECHANIC AM VIDEO GAMES MECHANIC Narrative [facility] - 06/14/2013 3:12 AM VIDEO GAMES MECHANIC Drawn From Arterial Line Otoniel Grijalva P.A.-C., M.S. LAB BLOOD ADD-ON Performing Organization Address City/[facility]/ZIP Code Phon e Number [address] [place] [address] [facility] (ABNORMAL) ALT (Alanine Aminotransferase) (06/14/2013 2:06 AM VIDEO GAMES MECHANIC) Component Value Ref Test Analysis Performed At [facility] Range Method Time Signature Alanine 146 (H) 7 - 55 [facility] Aminotransferase U/L LABORATORIES - (ALT), S [facility] Comment: Drawn From Arterial Line Specimen Anatomical Collection Method Collection Time Receive d Time (Source) Location / / Volume Laterality 06/14/2013 2:06 AM 3 2:06 VIDEO GAMES MECHANIC AM VIDEO GAMES MECHANIC Narrative [facility] - 06/14/2013 3:12 AM VIDEO GAMES MECHANIC Drawn From Arterial Line Otoniel Grijalva P.A.-C., M.S. LAB BLOOD ADD-ON Performing Organization Address City/State/ZIP Code Phon e Number [facility] - [address] [phone] [facility] HLA Class II SAB Antibody Screen (06/14/2013 2:06 AM VIDEO GAMES MECHANIC) [facility] Method Time Signature SAB DRB1 NONE [facility] Specificity LABORATORIES - [facility] Comment: Drawn From Arterial Line SAB [id number] Specificity NONE [facility]ATOR[facility] Comment: Drawn From Arterial Line Class II SAB Overall Negative Not Applicable [facility] Comment: Drawn From Arterial Line Class II SAB cPRA 0 [facility] Comment: Drawn From Arterial Line ? This PRA is a [facility] Tiss ue Typing ? Laboratory calculated PRA. PRA is based on the antigen ? frequency of the Tissue Typing patient a nd donor ? population. ??PRA reflects all antibodie s with a normalized ? value (MFI) above 300. ? SAB DQB1 Specificity NONE [facility] Comment: Drawn From Arterial Line SAB [id number] Specificity NONE [facility] Comment: Drawn From Arterial Line ? Method: Luminex Flow Cytometry ? Specimen Anatomical Collection Method Collection Time Receive d Time (Source) Location / / Volume Laterality 06/14/2013 2:06 AM 3 2:06 VIDEO GAMES MECHANIC AM VIDEO GAMES MECHANIC Narrative [facility] - 06/15/2013 10:50 AM VIDEO GAMES MECHANIC Drawn From Arterial Line Otoniel Grijalva P.A.-C., M.S. LAB HLA ORDERABLES Performing Organization Address [facility] Phon e Number [facility] LABORATORIES - [address] (ABNORMAL) Troponin T (06/14/2013 2:06 AM VIDEO GAMES MECHANIC) Patholo gist Method Time Signature Troponin T, S 0.04 (H) <0.01 [facility] NG/ML [facility] Comment: Drawn From Arterial Line Specimen Anatomical Collection Method Collection Time Receive d Time (Source) Location / / Volume Laterality 06/14/2013 2:06 AM 3 2:06 VIDEO GAMES MECHANIC AM VIDEO GAMES MECHANIC Narrative [facility] - 06/14/2013 3:12 AM VIDEO GAMES MECHANIC Drawn From Arterial Line Otoniel Grijalva P.A.-C., M.S. LAB BLOOD ADD-ON Performing Organization Address City/[facility] Code Phon e Number [facility] LABORATORIES - [address] [phone] [facility] Magnesium (06/14/2013 2:06 AM VIDEO GAMES MECHANIC) P athologist Signature Magnesium, S 2.0 1.7 - 2.3 [facility] MG/DL [facility] Comment: Drawn From Arterial Line Specimen Anatomical Collection Method Collection Time Receive d Time (Source) Location / / Volume Laterality 06/14/2013 2:06 AM 3 2:06 VIDEO GAMES MECHANIC AM VIDEO GAMES MECHANIC Narrative [facility] LABORATORIES [facility] - 06/14/2013 3:12 AM VIDEO GAMES MECHANIC Drawn From Arterial Line Otoniel Grijalva P.A.-C., M.S. LAB BLOOD ADD-ON Performing Organization Address City/State/ZIP Code Phon e Number [facility] LABORATORIES - [address] [phone] [facility] (ABNORMAL) Calcium, Total (06/14/2013 2:06 AM VIDEO GAMES MECHANIC) Patholo gist Method Time Signature Calcium, 11.4 (H) 8.9 - [facility] Total, S 10.1 LABORATORIES - MG/DL [facility] Comment: Drawn From Arterial Line Specimen Anatomical Collection Method Collection Time Receive d Time (Source) Location / / Volume Laterality 06/14/2013 2:06 AM 3 2:06 VIDEO GAMES MECHANIC AM VIDEO GAMES MECHANIC Narrative [facility] - 06/14/2013 3:12 AM VIDEO GAMES MECHANIC Drawn From Arterial Line Otoniel Grijalva P.A.-C., M.S. LAB BLOOD ADD-ON Performing Organization Address City/State/ZIP Code Phon e Number [facility] LABORATORIES - [address] [phone] [facility] (ABNORMAL) BUN (Blood Urea Nitrogen) (06/14/2013 2:06 AM VIDEO GAMES MECHANIC) Analysis Performed At Patho logist Time Signature BUN (Blood 28 (H) 8 - 24 [facility] Urea MG/DL LABORATORIES - Nitrogen), S [facility] Comment: Drawn From Arterial Line Specimen Anatomical Collection Method Collection Time Receive d Time (Source) Location / / Volume Laterality 06/14/2013 2:06 AM 3 2:06 VIDEO GAMES MECHANIC AM VIDEO GAMES MECHANIC Narrative [facility] - 06/14/2013 3:12 AM VIDEO GAMES MECHANIC Drawn From Arterial Line Otoniel Grijalva P.A.-C., M.S. LAB BLOOD ADD-ON Performing Organization Address City/[facility]/ZIP Code Phon e Number [facility] LABORATORIES - [address] [phone] 05 [facility] (ABNORMAL) Glucose, Fasting (06/14/2013 2:06 AM VIDEO GAMES MECHANIC) P athologist Signature Glucose, P 152 (H) 70 - 100 [facility] MG/DL [facility] Comment: Drawn From Arterial Line Specimen Anatomical Collection Method Collection Time Receive d Time (Source) Location / / Volume Laterality 06/14/2013 2:06 AM 3 2:06 VIDEO GAMES MECHANIC AM VIDEO GAMES MECHANIC Narrative [facility] - 06/14/2013 2:59 AM VIDEO GAMES MECHANIC Drawn From Arterial Line Otoniel Grijalva P.A.-C., M.S. LAB BLOOD NON ADD-ON Performing Organization Address [facility] Code Phon e Number [facility] LABORATORIES - [address] [phone] 05 [facility] Alkaline Phosphatase (06/14/2013 2:06 AM VIDEO GAMES MECHANIC) P athologist Signature Alkaline 45 45 - 115 [facility] Phosphatase, S U/L [facility] Comment: Drawn From Arterial Line Specimen Anatomical Collection Method Collection Time Receive d Time (Source) Location / / Volume Laterality 06/14/2013 2:06 AM 3 2:06 VIDEO GAMES MECHANIC AM VIDEO GAMES MECHANIC Narrative [facility] - 06/14/2013 3:12 AM VIDEO GAMES MECHANIC Drawn From Arterial Line Otoniel Grijalva P.A.-C., M.S. LAB BLOOD ADD-ON Performing Organization Address City/[facility] Code Phon e Number [facility] LABORATORIES - [address] HLA Class I SAB Antibody Screen (06/14/2013 2:06 AM VIDEO GAMES MECHANIC) Patholo gist Method Time Signature Class I SAB Negative Not Applicable [facility] Overall LABORATORIES - Result [facility] Comment: Drawn From Arterial Line Class I SAB cPRA 0 [facility] L ABORATORIES [facility] Comment: Drawn From Arterial Line ? This PRA is a [facility] Tiss ue Typing ? Laboratory calculated PRA. PRA is based on the antigen ? frequency of the Tissue Typing patient a nd donor ? population. ??PRA reflects all antibodie s with a normalized ? value (MFI) above 300. ? SAB C Specificity NONE [facility] Comment: Drawn From Arterial Line ? Method: Luminex Flow Cytometry ? SAB A Specificity NONE [facility] Comment: Drawn From Arterial Line SAB B Specificity NONE [facility] Comment: Drawn From Arterial Line Specimen Anatomical Collection Method Collection Time Receive d Time (Source) Location / / Volume Laterality 06/14/2013 2:06 AM 3 2:06 VIDEO GAMES MECHANIC AM VIDEO GAMES MECHANIC Narrative [facility] - 06/15/2013 10:47 AM VIDEO GAMES MECHANIC Drawn From Arterial Line Otoniel Grijalva P.A.-C. M.S. LAB HLA ORDERABLES Performing Organization Address City/[facility] Phon e Number [facility] [address] [place], [place] [address] [facility] (ABNORMAL) Phosphorus Inorganic (06/14/2013 2:06 AM VIDEO GAMES MECHANIC) [facility] gist Method Time Signature Phosphorus 5.6 (H) 2.5 - 4.5 [facility] (Inorganic), S MG/DL [facility] Comment: Drawn From Arterial Line Specimen Anatomical Collection Method Collection Time Receive d Time (Source) Location / / Volume Laterality 06/14/2013 2:06 AM 3 2:06 VIDEO GAMES MECHANIC AM VIDEO GAMES MECHANIC Narrative [facility] - 06/14/2013 3:12 AM VIDEO GAMES MECHANIC Drawn From Arterial Line Otoniel Grijalva P.A.-C., M.S. LAB BLOOD ADD-ON Performing Organization Address City/[facility] Code Phon e Number [facility] - [address] [phone] 05 [facility] (ABNORMAL) CBC with Differential - No Alerts (06/14/2013 2:06 AM VIDEO GAMES MECHANIC) [facility] Method Time Signature Erythrocytes 3.09 (L) 4.32 - [facility] 5.72 LABORATORIES - X10(12)/L [facility] Comment: Drawn From Arterial Line MCV 80.3 (L) 81.2 - 95.1 FL [facility] Comment: Drawn From Arterial Line Lymphocytes 0.32 (L) 0.90 - 2.90 X10(9)/L [facility] Comment: Drawn From Arterial Line Monocytes 0.60 0.30 - 0.90 X10(9)/L [facility] Comment: Drawn From Arterial Line Hemoglobin 9.1 (L) 13.5 - 17.5 G/DL [facility] Comment: Drawn From Arterial Line Hematocrit 24.8 (L) 38.8 - 50.0 % [facility] Comment: Drawn From Arterial Line RBC Distrib Width 14.8 11.8 - 15.6 % [facility] Comment: Drawn From Arterial Line Neutrophils 7.39 (H) 1.70 - 7.00 X10(9)/L [facility] Comment: Drawn From Arterial Line Eosinophils 0.00 (L) 0.05 - 0.50 X10(9)/L [facility] Comment: Drawn From Arterial Line Basophils 0.00 0.00 - 0.30 X10(9)/L [facility] Comment: Drawn From Arterial Line Platelet Count 35 (L) 150 - 450 X10(9)/L [facility] Comment: Drawn From Arterial Line ? Results confirmed by smear. ? Leukocytes 8.3 3.5 - 10.5 X10(9)/L [facility] Comment: Drawn From Arterial Line Specimen Anatomical Collection Method Collection Time Receive d Time (Source) Location / / Volume Laterality 06/14/2013 2:06 AM 3 2:06 VIDEO GAMES MECHANIC AM VIDEO GAMES MECHANIC Narrative [facility] - 06/14/2013 4:36 AM VIDEO GAMES MECHANIC Drawn From Arterial Line Otoniel Grijalva P.A.-C., M.S. LAB BLOOD NON ADD-ON Performing Organization Address City/State/ZIP Code Phon e Number [facility] - [address] [place], [place] [address] [facility] Microbiology Reports (06/14/2013 2:05 AM VIDEO GAMES MECHANIC) Specimen Anatomical Collection Method Collection Time Receive d Time (Source) Location / / Volume Laterality 06/14/2013 2:05 AM 3 2:07 VIDEO GAMES MECHANIC AM VIDEO GAMES MECHANIC Narrative [facility] - 08/13/2013 1:05 PM VIDEO GAMES MECHANIC 14-JUN-2013 BLOOD VIA ARTERIAL LINE, ARM RIGHT ? SoftOrd# [id number] ?(Ordered 14-JUN-2013; Collec onel 14-JUN-2013 02:05; Received 14-JUN-2013 02:55) ?[facility] ?Drawn From Arterial Line ?Received Isolator and two [facility] Myco F bottles Received Bactec aerobic and [...] BLOOD VIA ARTERIAL LINE, ARM RIGHT SoftOrd# [id number] (Ordered 14-JUN-2013; Collected 2012 02:05; Received 14-JUN-2013 02:55) [facility] Drawn From Arterial Line Received Isolator and [...] City/State/ZIP Code Phon e Number [facility] LAB[facility]ATORIES - [address] [place], [place] [address] [facility] PT (Prothrombin Time) with INR (06/14/2013 1:45 AM VIDEO GAMES MECHANIC) [facility] Signature Prothrombin 12.3 9.5 - 13.8 [facility] Time, P SEC LABORATORIES - [facility] INR 1.1 0.8 - 1.2 [facility] LABORATORIES - [facility] Specimen Anatomical Collection Method Collection Time Receive d Time (Source) Location / / Volume Laterality 06/14/2013 1:45 AM 3 1:45 VIDEO GAMES MECHANIC AM VIDEO GAMES MECHANIC Dex Smith APRN, C.N.P. LAB BLOOD ADD-ON Performing Organization Address City/[facility]/ZIP Code Phon e Number [facility]IES - [address] [place] [address] [facility] (ABNORMAL) Fibrinogen (06/14/2013 1:45 AM VIDEO GAMES MECHANIC) [facility] Signature Fibrinogen, P 187 (L) 200 - 375 [facility] MG/DL LABORATORIES - [facility] Specimen Anatomical Collection Method Collection Time Receive d Time (Source) Location / / Volume Laterality 06/14/2013 1:45 AM 3 1:45 VIDEO GAMES MECHANIC AM VIDEO GAMES MECHANIC Dex Smith APRN, C.N.P. LAB BLOOD ADD-ON Performing Organization Address City/[facility]/ZIP Code Phon e Number [facility]IES - [address] [place] [address] [facility] (ABNORMAL) Calcium, Ionized (06/14/2013 1:45 AM VIDEO GAMES MECHANIC) [facility] Calcium, 6.52 (>) 4.65 - [facility] Ionized, B 5.30 LABORATORIES - MG/DL [facility] Specimen Anatomical Collection Method Collection Time Receive d Time (Source) Location / / Volume Laterality 06/14/2013 1:45 AM 3 1:45 VIDEO GAMES MECHANIC AM VIDEO GAMES MECHANIC Dex Smith APRN, C.N.P. LAB BLOOD NON ADD-ON Performing Organization Address City/[facility]/ZIP Code Phon e Number [facility]IES - [address] [place] [address] [facility] (ABNORMAL) Electrolyte Panel with Creatinine Remy (06/14/2013 1:45 AM VIDEO GAMES MECHANIC) [facility] Signature BUN (Blood 29 (H) 8 - 24 [facility] Urea MG/DL LABORATORIES - Nitrogen), S [facility] HX 23 22 - 29 [facility] Bicarbonate, MMOL/L LABORATORIES - P/S [facility] Chloride, S 101 100 - 108 [facility] MMOL/L [facility] Sodium, P 131 (L) 135 - 145 [facility] MMOL/L [facility] Potassium, P 4.2 3.6 - 5.2 [facility] MMOL/L [facility] Creatinine, 1.8 (H) 0.9 - 1.4 [facility] Remy MG/DL [facility] Glucose, S 169 (H) 70 - 140 [facility] MG/DL [facility] Specimen Anatomical Collection Method Collection Time Receive d Time (Source) Location / / Volume Laterality 06/14/2013 1:45 AM 3 1:45 VIDEO GAMES MECHANIC AM VIDEO GAMES MECHANIC Dex Smith APRN C.N.P. LAB BLOOD ADD-ON Performing Organization Address City/State/ZIP Code Phon e Number [facility]IES - [address] [place], [place] [address] [facility] (ABNORMAL) Blood Gas with Coox, Arterial (06/14/2013 1:45 AM VIDEO GAMES MECHANIC) [facility] gist Method Time Signature Arterial Art Line [facility] Sample Site [facility] FIO2 0.21 .21=AIR [facility] pCO2 38 35 - 45 [facility] MM HG [facility] pH 7.41 7.35 - [facility] 7.45 PH [facility] Hb 9.2 (L) 13.5 - [facility] 17.5 G/DL [facility] O2Hb 90.3 (L) 94.0 - [facility] 98.0 % [facility] CtO2 11.7 (L) 21.0 - [facility] 23.0 VOL LABORATORIES - % [facility] Spont. 14 [facility] breaths/min [facility] pO2 64 (L) 80 - 100 [facility] MM HG [facility] Base Excess -1 -2 - 2 [facility] MMOL/L [facility] HCO3 24 22 - 26 [facility] MMOL/L [facility] COHb 1.9 <3.0 % [facility] MetHb 1.0 <1.6 % [facility] Specimen Anatomical Collection Method Collection Time Receive d Time (Source) Location / / Volume Laterality 06/14/2013 1:45 AM 3 1:45 VIDEO GAMES MECHANIC AM VIDEO GAMES MECHANIC Arley Wang APRN.N.P. LAB BLOOD NON ADD-ON Performing Organization Address City/[facility]/ZIP Code Phon e Number [facility]IES - [address] APTT (Activated Partial Thromboplastin Time) (06/14/2013 1:45 AM VIDEO GAMES MECHANIC) P athologist Signature APTT, P 29 28 - 38 SEC [facility] Specimen Anatomical Collection Method Collection Time Receive d Time (Source) Location / / Volume Laterality 06/14/2013 1:45 AM 3 1:45 VIDEO GAMES MECHANIC AM VIDEO GAMES MECHANIC Alphonse Wang APRN.P. LAB BLOOD ADD-ON Performing Organization Address City/[facility] Code Phon e Number [facility]IES - [address] [place] [address] [facility] (ABNORMAL) Glucose, POCT (06/13/2013 9:53 PM VIDEO GAMES MECHANIC) Patholo gist Method Time Signature Glucose, POCT, 159 (H) 70 - 140 [facility] B MG/DL LABORATORIES - [facility] Sample Site, ARTLINE [facility] Blood Gas, LABORATORIES - POCT [facility] Specimen Anatomical Collection Method Collection Time Receive d Time (Source) Location / / Volume Laterality 06/13/2013 9:53 PM 3 9:53 VIDEO GAMES MECHANIC PM VIDEO GAMES MECHANIC Historical Provider LAB POCT ORDERABLES-MANUAL Performing Organization Address City/[facility]/ZIP [facility] Phon e Number [facility]ATORIES - [address] HX intra-Op Auto Tx (06/13/2013 8:26 PM VIDEO GAMES MECHANIC) Analysis Performed At Patho logist Time Signature HXRBC # UNITS 6.94 [facility] TRANSFUSED [facility] HXRBC UNIT INFO RBC [facility] Comment: Component Type Intraoperative Salvaged R BC Unit Number =[id number] Issue Date/Time Component Type Intraoperative Salvaged R BC Unit Number =[id number] Issue Date/Time Component Type Intraoperative Salvaged R BC Unit Number =[id number] Issue Date/Time Component Type Intraoperative Salvaged R BC Unit Number =[id number] Issue Date/Time [id number] Component Type Intraoperative Salvaged R BC Unit Number =[id number] Issue Date/Time [id number] Specimen (Source) Anatomical Collection Method Collection Time Re ceived Time Location / / Volume Laterality 06/13/2013 8:26 PM VIDEO GAMES MECHANIC Historical Provider LAB HISTORICAL ORDERS Performing Organization Address City/[facility] Phon e Number [facility] - [address] [place], [place] [address] [facility] HX intra-Op Auto Tx (06/13/2013 8:26 PM VIDEO GAMES MECHANIC) Analysis Performed At Patho logist Time Signature HXRBC # UNITS 5.72 [facility] TRANSFUSED [facility] HXRBC UNIT INFO RBC [facility] Comment: Component Type Intraoperative Salvaged R BC Unit Number =[id number] Issue Date/Time Component Type Intraoperative Salvaged R BC Unit Number =[id number] Issue Date/Time Component Type Intraoperative Salvaged R BC Unit Number =[id number] Issue Date/Time Component Type Intraoperative Salvaged R BC Unit Number =[id number] Issue Date/Time Component Type Intraoperative Salvaged R BC Unit Number =[id number] Issue Date/Time Specimen (Source) Anatomical Collection Method Collection Time Re ceived Time Location / / Volume Laterality 06/13/2013 8:26 PM VIDEO GAMES MECHANIC Historical Provider LAB HISTORICAL ORDERS Performing Organization Address [facility] Phon e Number [facility]IES - [address] [place], [place] [address] [facility] (ABNORMAL) Glucose, POCT (06/13/2013 4:55 PM VIDEO GAMES MECHANIC) Patholo gist Method Time Signature Glucose, POCT, 178 (H) 70 - 140 [facility] B MG/DL LABORATORIES - [facility] Sample Site, ARTLINE [facility] Blood Gas, LABORATORIES - POCT [facility] Specimen Anatomical Collection Method Collection Time Receive d Time (Source) Location / / Volume Laterality 06/13/2013 4:55 PM 3 4:55 VIDEO GAMES MECHANIC PM VIDEO GAMES MECHANIC Historical Provider LAB POCT ORDERABLES-MANUAL Performing Organization Address [facility] Phon e Number [facility] LAB[facility]ATORIES - [address] [place] [phone] [facility] (ABNORMAL) Blood Gas with Coox, Arterial (06/13/2013 4:36 PM VIDEO GAMES MECHANIC) Patholo gist Method Time Signature Arterial Art Line [facility] Sample Site LABORATORIES [facility] FIO2 0.21 .21=AIR [facility] pCO2 40 35 - 45 [facility] MM HG [facility] pH 7.38 7.35 - [facility] 7.45 PH [facility] Base Excess -1 -2 - 2 [facility] MMOL/L [facility] HCO3 23 22 - 26 [facility] MMOL/L [facility] Hb 8.7 (L) 13.5 - [facility] 17.5 G/DL [facility] O2Hb 86.1 (L) 94.0 - [facility] 98.0 % [facility] COHb 2.0 <3.0 % [facility] MetHb 1.3 <1.6 % [facility] CtO2 10.6 (L) 21.0 - [facility] 23.0 VOL LABORATORIES - % [facility] Spont. 14 [facility] breaths/min [facility] pO2 56 (L) 80 - 100 [facility] MM HG [facility] Specimen Anatomical Collection Method Collection Time Receive d Time (Source) Location / / Volume Laterality 06/13/2013 4:36 PM 3 4:36 VIDEO GAMES MECHANIC PM VIDEO GAMES MECHANIC Otoniel Grijalva P.A.-C., M.S. LAB BLOOD NON ADD-ON Performing Organization Address City/[facility] Code Phon e Number [facility] LABORATORIES - [address] [place] [address] [facility] APTT (Activated Partial Thromboplastin Time) (06/13/2013 1:45 PM VIDEO GAMES MECHANIC) P athologist Signature APTT, P 33 28 - 38 SEC [facility] Specimen Anatomical Collection Method Collection Time Receive d Time (Source) Location / / Volume Laterality 06/13/2013 1:45 PM 3 1:45 VIDEO GAMES MECHANIC PM VIDEO GAMES MECHANIC Dex Smith APRN, C.N.P. LAB BLOOD ADD-ON Performing Organization Address City/State/ZIP Code Phon e Number [facility]IES - [address] [place] [address] [facility] (ABNORMAL) Calcium, Ionized (06/13/2013 1:45 PM VIDEO GAMES MECHANIC) [facility] Signature Calcium, 7.03 (>) 4.65 - [facility] Ionized, B 5.30 LABORATORIES - MG/DL [facility] Specimen Anatomical Collection Method Collection Time Receive d Time (Source) Location / / Volume Laterality 06/13/2013 1:45 PM 3 1:45 VIDEO GAMES MECHANIC PM VIDEO GAMES MECHANIC Dex Smith APRN, C.N.P. LAB BLOOD NON ADD-ON Performing Organization Address City/[facility]/ZIP Code Phon e Number [facility]IES - [address] [place] [address] [facility] PT (Prothrombin Time) with INR (06/13/2013 1:45 PM VIDEO GAMES MECHANIC) [facility] Signature Prothrombin 12.9 9.5 - 13.8 [facility] Time, P SEC LABORATORIES - [facility] INR 1.1 0.8 - 1.2 [facility] LABORATORIES - [facility] Specimen Anatomical Collection Method Collection Time Receive d Time (Source) Location / / Volume Laterality 06/13/2013 1:45 PM 3 1:45 VIDEO GAMES MECHANIC PM VIDEO GAMES MECHANIC Dex Smith APRN, C.N.P. LAB BLOOD ADD-ON Performing Organization Address City/[facility]/ZIP Code Phon e Number [facility] LABORATORIES - [address] [place] [address] [facility] (ABNORMAL) Electrolyte (Chem 4) Panel (06/13/2013 1:45 PM VIDEO GAMES MECHANIC) [facility] Signature Sodium, P 135 135 - 145 [facility] MMOL/L LABORATORIES - [facility] Potassium, P 4.0 3.6 - 5.2 [facility] MMOL/L LABORATORIES - [facility] eGFR 42 (L) >60 [facility] Non-Black/Afric ML/MIN/BS LABORATORIES - an Peruvian A [facility] eGFR-Black/Afri 50 (L) >60 [facility] can Peruvian ML/MIN/BS LABORATORIES - A [facility] Chloride, S 103 100 - 108 [facility] MMOL/L LABORATORIES - [facility] BUN (Blood Urea 23 8 - 24 [facility] Nitrogen), S MG/DL LABORATORIES - [facility] HX Bicarbonate, 23 22 - 29 [facility] P/S MMOL/L LABORATORIES - [facility] Creatinine 1.7 (H) 0.8 - 1.3 [facility] MG/DL LABORATORIES - [facility] Glucose, S 142 (H) 70 - 140 [facility] MG/DL LABORATORIES - [facility] Specimen Anatomical Collection Method Collection Time Receive d Time (Source) Location / / Volume Laterality 06/13/2013 1:45 PM 3 1:45 VIDEO GAMES MECHANIC PM VIDEO GAMES MECHANIC Dex Smith APRN, C.N.P. LAB BLOOD ADD-ON Performing Organization Address City/[facility] Phon e Number [facility] LABORATORIES - [address] [place] [phone] [facility] (ABNORMAL) Blood Gas with Coox, Arterial (06/13/2013 1:45 PM VIDEO GAMES MECHANIC) [facility] gist Method Time Signature pCO2 38 35 - 45 [facility] MM HG LABORATORIES [facility] pH 7.41 7.35 - [facility] 7.45 PH LABORATORIES [facility] Base Excess 0 -2 - 2 [facility] MMOL/L LABORATORIES [facility] HCO3 24 22 - 26 [facility] MMOL/L [facility] COHb 1.9 <3.0 % [facility] MetHb 1.3 <1.6 % [facility] Arterial Art Line [facility] Sample Site LABORATORIES [facility] pO2 72 (L) 80 - 100 [facility] MM HG LABORATORIES [facility] Hb 7.7 (L) 13.5 - [facility] 17.5 G/DL [facility] O2Hb 92.3 (L) 94.0 - [facility] 98.0 % [facility] CtO2 10.1 (L) 21.0 - [facility] 23.0 VOL LABORATORIES - [facility] Specimen Anatomical Collection Method Collection Time Receive d Time (Source) Location / / Volume Laterality 06/13/2013 1:45 PM 3 1:45 VIDEO GAMES MECHANIC PM VIDEO GAMES MECHANIC Dex Smith APRN, C.N.P. LAB BLOOD NON ADD-ON Performing Organization Address City/[facility]/ZIP Code Phon e Number [facility] LABORATORIES - [address] [place] [phone] [facility] (ABNORMAL) CBC without Differential (06/13/2013 1:45 PM VIDEO GAMES MECHANIC) [facility] Signature Hemoglobin 7.6 (L) 13.5 - [facility] 17.5 G/DL LABORATORIES - [facility] Hematocrit 20.7 (L) 38.8 - [facility] 50.0 % LABORATORIES - [facility] Leukocytes 6.5 3.5 - [facility] 10.5 LABORATORIES - X10(9)/L [facility] Erythrocytes 2.48 (L) 4.32 - [facility] 5.72 LABORATORIES - X10(12)/L [facility] MCV 83.5 81.2 - [facility] 95.1 FL LABORATORIES - [facility] RBC Distrib 14.9 11.8 - [facility] Width 15.6 % LABORATORIES - [facility] Platelet Count 49 (L) 150 - 450 [facility] X10(9)/L LABORATORIES - [facility] Specimen Anatomical Collection Method Collection Time Receive d Time (Source) Location / / Volume Laterality 06/13/2013 1:45 PM 3 1:45 VIDEO GAMES MECHANIC PM VIDEO GAMES MECHANIC Dex Smith APRN, C.N.P. LAB BLOOD ADD-ON Performing Organization Address City/[facility]/ZIP Code Phon e Number [facility] LABORATORIES - [address] [place] [phone] [facility] (ABNORMAL) Fibrinogen (06/13/2013 1:45 PM VIDEO GAMES MECHANIC) [facility] Fibrinogen, P 167 (L) 200 - 375 [facility] MG/DL LABORATORIES - [facility] Specimen Anatomical Collection Method Collection Time Receive d Time (Source) Location / / Volume Laterality 06/13/2013 1:45 PM 3 1:45 VIDEO GAMES MECHANIC PM VIDEO GAMES MECHANIC Dex Smith APRN, C.N.P. LAB BLOOD ADD-ON Performing Organization Address City/[facility] Phon e Number [facility] LABORATORIES - [address] [place] [address] [facility] Glucose, POCT (06/13/2013 1:41 PM VIDEO GAMES MECHANIC) [facility] Signature Glucose, POCT, 120 70 - 140 [facility] B MG/DL LABORATORIES - [facility] Sample Site, ARTLINE [facility] Blood Gas, LABORATORIES - POCT [facility] Specimen Anatomical Collection Method Collection Time Receive d Time (Source) Location / / Volume Laterality 06/13/2013 1:41 PM 3 1:41 VIDEO GAMES MECHANIC PM VIDEO GAMES MECHANIC Historical Provider LAB POCT ORDERABLES-MANUAL Performing Organization Address City/[facility]/ZIP Code Phon e Number [facility] LABORATORIES - [address] [place], [place] [address] [facility] Glucose, POCT (06/13/2013 12:49 PM VIDEO GAMES MECHANIC) [facility] Method Time Signature Glucose, POCT, 123 70 - 140 [facility] B MG/DL LABORATORIES - [facility] Sample Site, [facility] Blood Gas, LABORATORIES - POCT [facility] Specimen Anatomical Collection Method Collection Time Receive d Time (Source) Location / / Volume Laterality 06/13/2013 12:49 06/13/2013 PM VIDEO GAMES MECHANIC 12:49 PM VIDEO GAMES MECHANIC Historical Provider LAB POCT ORDERABLES-MANUAL Performing Organization Address City/[facility]/ZIP Code Phon e Number [facility] LABORATORIES - [address] [place], [place] [address] [facility] Glucose, POCT (06/13/2013 12:04 PM VIDEO GAMES MECHANIC) [facility] Method Time Signature Glucose, POCT, 131 70 - 140 [facility] B MG/DL LABORATORIES - [facility] Sample Site, [facility] Blood Gas, LABORATORIES - POCT [facility] Specimen Anatomical Collection Method Collection Time Receive d Time (Source) Location / / Volume Laterality 06/13/2013 12:04 06/13/2013 PM VIDEO GAMES MECHANIC 12:04 PM VIDEO GAMES MECHANIC Historical Provider LAB POCT ORDERABLES-MANUAL Performing Organization Address City/[facility]/ZIP Code Phon e Number [facility] LABORATORIES - [address] [place], [place] [address] [facility] (ABNORMAL) Glucose, POCT (06/13/2013 10:39 AM VIDEO GAMES MECHANIC) [facility] Method Time Signature Glucose, POCT, 179 (H) 70 - 140 [facility] B MG/DL LABORATORIES - [facility] Sample Site, [facility] Blood Gas, LABORATORIES - POCT [facility] Specimen Anatomical Collection Method Collection Time Receive d Time (Source) Location / / Volume Laterality 06/13/2013 10:39 06/13/2013 AM VIDEO GAMES MECHANIC 10:39 AM VIDEO GAMES MECHANIC Historical Provider LAB POCT ORDERABLES-MANUAL Performing Organization Address City/State/ZIP Code Phon e Number [facility] LABORATORIES - [address] [place], [place] [address] [facility] (ABNORMAL) Glucose, POCT (06/13/2013 9:39 AM VIDEO GAMES MECHANIC) [facility] Method Time Signature Glucose, POCT, 168 (H) 70 - 140 [facility] B MG/DL LABORATORIES - [facility] Sample Site, [facility] Blood Gas, LABORATORIES - POCT [facility] Specimen Anatomical Collection Method Collection Time Receive d Time (Source) Location / / Volume Laterality 06/13/2013 9:39 AM 3 9:39 VIDEO GAMES MECHANIC AM VIDEO GAMES MECHANIC Historical Provider LAB POCT ORDERABLES-MANUAL Performing Organization Address City/[facility]/ZIP Code Phon e Number [facility] LABORATORIES - [address] [address] [facility] (ABNORMAL) Glucose, POCT (06/13/2013 8:43 AM VIDEO GAMES MECHANIC) [facility] Method Time Signature Glucose, POCT, 166 (H) 70 - 140 [facility] B MG/DL LABORATORIES - [facility] Sample Site, [facility] Blood Gas, LABORATORIES - POCT [facility] Specimen Anatomical Collection Method Collection Time Receive d Time (Source) Location / / Volume Laterality 06/13/2013 8:43 AM 3 8:43 VIDEO GAMES MECHANIC AM VIDEO GAMES MECHANIC Historical Provider LAB POCT ORDERABLES-MANUAL Performing Organization Address City/State/ZIP Code Phon e Number [facility] LABORATORIES - [address] [phone] [facility] US Abdomen Limited plus Abdomen Doppler (06/13/2013 8:28 AM VIDEO GAMES MECHANIC) Anatomical Region Laterality Modality Abdomen N/A Ultrasound Specimen (Source) Anatomical Collection Method Collection Time Re ceived Time Location / / Volume Laterality 06/13/2013 8:28 AM VIDEO GAMES MECHANIC Narrative 06/13/2013 9:37 AM VIDEO GAMES MECHANIC 13-Jun-2013 08:28:00 ??Exam: US Abd Lmtd with [...] (ABNORMAL) CBC without Differential (06/13/2013 7:40 AM VIDEO GAMES MECHANIC) [facility] Method Time Signature Hemoglobin 8.1 (L) 13.5 - [facility] 17.5 G/DL LABORATORIES [facility] Hematocrit 22.4 (L) 38.8 - [facility] 50.0 % LABORATORIES - [facility] RBC Distrib 14.6 11.8 - [facility] Width 15.6 % [facility] - [facility] Platelet Count 61 (L) 150 - 450 [facility] X10(9)/L [facility] Erythrocytes 2.69 (L) 4.32 - [facility] 5.72 LABORATORIES - X10(12)/L [facility] MCV 83.3 81.2 - [facility] 95.1 [place] LABORATORIES [facility] Leukocytes 4.2 3.5 - [facility] 10.5 LABORATORIES - X10(9)/L [facility] Specimen Anatomical Collection Method Collection Time Receive d Time (Source) Location / / Volume Laterality 06/13/2013 7:40 AM 3 7:40 VIDEO GAMES MECHANIC AM VIDEO GAMES MECHANIC Historical Provider LAB BLOOD ADD-ON Performing Organization Address City/State/ZIP Code Phon e Number [facility] LABORATORIES - [address] [phone] [facility] (ABNORMAL) PT (Prothrombin Time) with INR (06/13/2013 7:40 AM VIDEO GAMES MECHANIC) [facility] Method Time Signature Prothrombin 14.7 (H) 9.5 - [facility] Time, P 13.8 SEC LABORATORIES - [facility] INR 1.3 0.8 - 1.2 [facility] LABORATORIES - [facility] Specimen Anatomical Collection Method Collection Time Receive d Time (Source) Location / / Volume Laterality 06/13/2013 7:40 AM 3 7:40 VIDEO GAMES MECHANIC AM VIDEO GAMES MECHANIC Historical Provider LAB BLOOD ADD-ON Performing Organization Address City/[facility] Phon e Number [facility] LABORATORIES - [address] [phone] [facility] (ABNORMAL) Calcium, Ionized (06/13/2013 7:40 AM VIDEO GAMES MECHANIC) [facility] Method Time Signature Calcium, 7.31 (>) 4.65 - [facility] Ionized, B 5.30 LABORATORIES - MG/DL [facility] Specimen Anatomical Collection Method Collection Time Receive d Time (Source) Location / / Volume Laterality 06/13/2013 7:40 AM 3 7:40 VIDEO GAMES MECHANIC AM VIDEO GAMES MECHANIC Historical Provider LAB BLOOD NON ADD-ON Performing Organization Address City/[facility] Phon e Number [facility] LABORATORIES - [address] [phone] [facility] (ABNORMAL) Fibrinogen (06/13/2013 7:40 AM VIDEO GAMES MECHANIC) [facility] Method Time Signature Fibrinogen, P 167 (L) 200 - 375 [facility] MG/DL LABORATORIES [facility] Specimen Anatomical Collection Method Collection Time Receive d Time (Source) Location / / Volume Laterality 06/13/2013 7:40 AM 3 7:40 VIDEO GAMES MECHANIC AM VIDEO GAMES MECHANIC Historical Provider LAB BLOOD ADD-ON Performing Organization Address City/[facility] Phon e Number [facility] LABORATORIES - [address] [phone] [facility] (ABNORMAL) Thromboelastograph, Kaolin, Blood (06/13/2013 7:40 AM VIDEO GAMES MECHANIC) [facility] Method Time Signature R + K 9.7 4.9 - 10.8 [facility] MIN LABORATORIES [facility] Angle 61.2 (L) 64.0 - 78.1 [facility] DEGREES LABORATORIES [facility] R Time 7.6 4.0 - 9.0 [facility] MIN LABORATORIES [facility] K Time 2.1 (H) 1.0 - 1.8 [facility] MIN LABORATORIES [facility] Maximum 52.8 (L) 57.1 - 72.6 [facility] Amplitude MM LABORATORIES [facility] Ly30 0.0 0.0 - 4.8 % [facility] Specimen Anatomical Collection Method Collection Time Receive d Time (Source) Location / / Volume Laterality 06/13/2013 7:40 AM 3 7:40 VIDEO GAMES MECHANIC AM VIDEO GAMES MECHANIC Historical Provider LAB BLOOD NON ADD-ON Performing Organization Address City/[facility] Phon e Number [facility] LABORATORIES - [address] [phone] [facility] (ABNORMAL) Electrolyte Panel with Creatinine Remy (06/13/2013 7:40 AM VIDEO GAMES MECHANIC) [facility] Method Time Signature Sodium, P 138 135 - 145 [facility] MMOL/L LABORATORIES - [facility] Potassium, P 4.2 3.6 - 5.2 [facility] MMOL/L LABORATORIES - [facility] Creatinine, 1.7 (H) 0.9 - 1.4 [facility] Remy MG/DL LABORATORIES - [facility] Glucose, S 178 (H) 70 - 140 [facility] MG/DL LABORATORIES - [facility] Chloride, S 106 100 - 108 [facility] MMOL/L LABORATORIES - [facility] BUN (Blood 22 8 - 24 [facility] Urea MG/DL LABORATORIES - Nitrogen), S [facility] HX 22 22 - 29 [facility] Bicarbonate, MMOL/L LABORATORIES - P/S [facility] Specimen Anatomical Collection Method Collection Time Receive d Time (Source) Location / / Volume Laterality 06/13/2013 7:40 AM 3 7:40 VIDEO GAMES MECHANIC AM VIDEO GAMES MECHANIC Historical Provider LAB BLOOD ADD-ON Performing Organization Address City/State/ZIP Code Phon e Number [facility] LABORATORIES - [address] [place], [place] [address] [facility] (ABNORMAL) Blood Gas with Coox, Arterial (06/13/2013 7:40 AM VIDEO GAMES MECHANIC) [facility] Method Time Signature Arterial Art Line [facility] Sample Site [facility] FIO2 0.21 .21=AIR [facility] pCO2 34 (L) 35 - 45 [facility] MM HG [facility] pH 7.45 7.35 - [facility] 7.45 PH [facility] Hb 8.3 (L) 13.5 - [facility] 17.5 G/DL [facility] O2Hb 92.0 (L) 94.0 - [facility] 98.0 % [facility] COHb 2.0 <3.0 % [facility] MetHb <1.0 <1.6 % [facility] CtO2 10.8 (L) 21.0 - [facility] 23.0 VOL LABORATORIES - % [facility] Spont. talk [facility] breaths/min [facility] pO2 66 (L) 80 - 100 [facility] MM HG [facility] Base Excess 0 -2 - 2 [facility] MMOL/L LABORATORIES - [facility] HCO3 24 22 - 26 [facility] MMOL/L LABORATORIES - [facility] Specimen Anatomical Collection Method Collection Time Receive d Time (Source) Location / / Volume Laterality 06/13/2013 7:40 AM 3 7:40 VIDEO GAMES MECHANIC AM VIDEO GAMES MECHANIC Historical Provider LAB BLOOD NON ADD-ON Performing Organization Address City/[facility]/ZIP [facility] Phon e Number [facility] LABORATORIES - [address] [phone] [facility] APTT (Activated Partial Thromboplastin Time) (06/13/2013 7:40 AM VIDEO GAMES MECHANIC) P athologist Signature APTT, P 34 28 - 38 SEC [facility] LABORATORIES - [facility] Specimen Anatomical Collection Method Collection Time Receive d Time (Source) Location / / Volume Laterality 06/13/2013 7:40 AM 3 7:40 VIDEO GAMES MECHANIC AM VIDEO GAMES MECHANIC Historical Provider LAB BLOOD ADD-ON Performing Organization Address City/[facility] Phon e Number [facility] LABORATORIES - [address] [phone] [facility] (ABNORMAL) Glucose, POCT (06/13/2013 7:38 AM VIDEO GAMES MECHANIC) Patholo gist Method Time Signature Glucose, POCT, 159 (H) 70 - 140 [facility] B MG/DL LABORATORIES - [facility] Specimen Anatomical Collection Method Collection Time Receive d Time (Source) Location / / Volume Laterality 06/13/2013 7:38 AM 3 7:38 VIDEO GAMES MECHANIC AM VIDEO GAMES MECHANIC Historical Provider LAB POCT ORDERABLES-MANUAL Performing Organization Address City/[facility] Phon e Number [facility] LABORATORIES - [address] (ABNORMAL) Glucose, POCT (06/13/2013 6:42 AM VIDEO GAMES MECHANIC) Patholo gist Method Time Signature Glucose, POCT, 153 (H) 70 - 140 [facility] B MG/DL LABORATORIES - [facility] Sample Site, ARTLINE [facility] Blood Gas, LABORATORIES - POCT [facility] Specimen Anatomical Collection Method Collection Time Receive d Time (Source) Location / / Volume Laterality 06/13/2013 6:42 AM 3 6:42 VIDEO GAMES MECHANIC AM VIDEO GAMES MECHANIC Historical Provider LAB POCT ORDERABLES-MANUAL Performing Organization Address City/State/ZIP Code Phon e Number [facility] LABORATORIES - [address] [place], [place] [address] [facility] (ABNORMAL) Glucose, POCT (06/13/2013 5:48 AM VIDEO GAMES MECHANIC) [facility] Method Time Signature Glucose, POCT, 144 (H) 70 - 140 [facility] B MG/DL LABORATORIES - [facility] Sample Site, [facility] Blood Gas, LABORATORIES - POCT [facility] Specimen Anatomical Collection Method Collection Time Receive d Time (Source) Location / / Volume Laterality 06/13/2013 5:48 AM 3 5:48 VIDEO GAMES MECHANIC AM VIDEO GAMES MECHANIC Historical Provider LAB POCT ORDERABLES-MANUAL Performing Organization Address City/[facility]/ZIP Code Phon e Number [facility] LABORATORIES - [address] [phone] [facility] Glucose, POCT (06/13/2013 4:34 AM VIDEO GAMES MECHANIC) [facility] Signature Glucose, POCT, 104 70 - 140 [facility] B MG/DL LABORATORIES - [facility] Sample Site, [facility] Blood Gas, LABORATORIES - POCT [facility] Specimen Anatomical Collection Method Collection Time Receive d Time (Source) Location / / Volume Laterality 06/13/2013 4:34 AM 3 4:34 VIDEO GAMES MECHANIC AM VIDEO GAMES MECHANIC Historical Provider LAB POCT ORDERABLES-MANUAL Performing Organization Address City/[facility]/ZIP Code Phon e Number [facility] LABORATORIES - [address] [address] [facility] (ABNORMAL) Calcium, Ionized (06/13/2013 3:34 AM VIDEO GAMES MECHANIC) [facility] Signature Calcium, 7.39 (>) 4.65 - [facility] Ionized, B 5.30 LABORATORIES - MG/DL [facility] Specimen Anatomical Collection Method Collection Time Receive d Time (Source) Location / / Volume Laterality 06/13/2013 3:34 AM 3 3:34 VIDEO GAMES MECHANIC AM VIDEO GAMES MECHANIC Dex Smith APRN, C.N.P. LAB BLOOD NON ADD-ON Performing Organization Address City/[facility]/ZIP Code Phon e Number [facility] LABORATORIES - [address] [phone] [facility] (ABNORMAL) Blood Gas with Coox, Arterial (06/13/2013 3:34 AM VIDEO GAMES MECHANIC) [facility] Method Time Signature Arterial Sample Art Line [facility] Site [facility] FIO2 0.40 .21=AIR [facility] Spont. 0 [facility] breaths/min [facility] Mech. 18 [facility] breaths/min [facility] End Expiratory 5.0 CM H2O [facility] Pressure [facility] Min. 12.4 [facility] Ventilation [facility] pO2 139 (H) 80 - 100 [facility] MM HG [facility] pCO2 34 (L) 35 - 45 [facility] MM HG [facility] pH 7.41 7.35 - [facility] 7.45 PH [facility] Base Excess -3 (L) -2 - 2 [facility] MMOL/L [facility] HCO3 21 (L) 22 - 26 [facility] MMOL/L [facility] Hb 10.4 (L) 13.5 - [facility] 17.5 G/DL [facility] O2Hb 95.8 94.0 - [facility] 98.0 % [facility] COHb 1.7 <3.0 % [facility] MetHb 1.5 <1.6 % [facility] CtO2 14.3 (L) 21.0 - [facility] 23.0 VOL [facility] Device Vent [facility] Vent Mode AC [facility] Specimen Anatomical Collection Method Collection Time Receive d Time (Source) Location / / Volume Laterality 06/13/2013 3:34 AM 3 3:34 VIDEO GAMES MECHANIC AM VIDEO GAMES MECHANIC Dex Smith APRN, C.N.P. LAB BLOOD NON ADD-ON Performing Organization Address City/State/ZIP Code Phon e Number [facility] LABORATORIES - [address] [place], [place] [address] [facility] (ABNORMAL) Electrolyte (Chem 4) Panel (06/13/2013 3:34 AM VIDEO GAMES MECHANIC) [facility] Method Time Signature Sodium, P 138 135 - 145 [facility] MMOL/L [facility] Potassium, P 4.1 3.6 - 5.2 [facility] MMOL/L [facility] Creatinine 1.5 (H) 0.8 - 1.3 [facility] MG/DL [facility] eGFR 48 (L) >60 [facility] Non-Black/Afric ML/MIN/BS LABORATORIES - an Peruvian A [facility] Chloride, S 106 100 - 108 [facility] MMOL/L LABORATORIES - [facility] BUN (Blood Urea 20 8 - 24 [facility] Nitrogen), S MG/DL LABORATORIES - [facility] HX Bicarbonate, 20 (L) 22 - 29 [facility] P/S MMOL/L LABORATORIES - [facility] eGFR-Black/Afri 58 (L) >60 [facility] can Peruvian ML/MIN/BS LABORATORIES - A [facility] Glucose, S 141 (H) 70 - 140 [facility] MG/DL LABORATORIES - [facility] Specimen Anatomical Collection Method Collection Time Receive d Time (Source) Location / / Volume Laterality 06/13/2013 3:34 AM 3 3:34 VIDEO GAMES MECHANIC AM VIDEO GAMES MECHANIC Dex Smith APRN, C.N.P. LAB BLOOD ADD-ON Performing Organization Address City/[facility] Phon e Number [facility] LABORATORIES - [address] [phone] [facility] Glucose, POCT (06/13/2013 3:16 AM VIDEO GAMES MECHANIC) Patholo gist Method Time Signature Glucose, POCT, 133 70 - 140 [facility] B MG/DL LABORATORIES - [facility] Sample Site, ARTLINE [facility] Blood Gas, LABORATORIES - POCT [facility] Specimen Anatomical Collection Method Collection Time Receive d Time (Source) Location / / Volume Laterality 06/13/2013 3:16 AM 3 3:16 VIDEO GAMES MECHANIC AM VIDEO GAMES MECHANIC Historical Provider LAB POCT ORDERABLES-MANUAL Performing Organization Address City/[facility] Phon e Number [facility] LABORATORIES - [address] [phone] [facility] APTT (Activated Partial Thromboplastin Time) (06/13/2013 3:10 AM VIDEO GAMES MECHANIC) P athologist Signature APTT, P 34 28 - 38 SEC [facility] Comment: Drawn From Arterial Line Specimen Anatomical Collection Method Collection Time Receive d Time (Source) Location / / Volume Laterality 06/13/2013 3:10 AM 3 3:10 VIDEO GAMES MECHANIC AM VIDEO GAMES MECHANIC Narrative [facility] LABORATORIES - [facility] - 06/13/2013 3:28 AM VIDEO GAMES MECHANIC Drawn From Arterial Line Dex Smith APRN, C.N.P. LAB BLOOD ADD-ON Performing Organization Address City/[facility]/ZIP Code Phon e Number [facility] - [address] (ABNORMAL) PT (Prothrombin Time) with INR (06/13/2013 3:10 AM VIDEO GAMES MECHANIC) [facility] Signature Prothrombin 15.2 (H) 9.5 - [facility] Time, P 13.8 SEC [facility] Comment: Drawn From Arterial Line INR 1.4 0.8 - 1.2 [facility] LABORATO [place] - [facility] Comment: Drawn From Arterial Line Specimen Anatomical Collection Method Collection Time Receive d Time (Source) Location / / Volume Laterality 06/13/2013 3:10 AM 3 3:10 VIDEO GAMES MECHANIC AM VIDEO GAMES MECHANIC Narrative [facility] - 06/13/2013 3:28 AM VIDEO GAMES MECHANIC Drawn From Arterial Line Dex Smith APRN, C.N.P. LAB BLOOD ADD-ON Performing Organization Address City/[facility]/ZIP Code Phon e Number [facility] - [address] [address] [facility] (ABNORMAL) Fibrinogen (06/13/2013 3:10 AM VIDEO GAMES MECHANIC) [facility] Signature Fibrinogen, P 193 (L) 200 - 375 [facility] MG/DL [facility] Comment: Drawn From Arterial Line Specimen Anatomical Collection Method Collection Time Receive d Time (Source) Location / / Volume Laterality 06/13/2013 3:10 AM 3 3:10 VIDEO GAMES MECHANIC AM VIDEO GAMES MECHANIC Narrative [facility] - 06/13/2013 3:29 AM VIDEO GAMES MECHANIC Drawn From Arterial Line Dex Smith APRN, C.N.P. LAB BLOOD ADD-ON Performing Organization Address City/[facility]/ZIP Code Phon e Number [facility] - [address] (ABNORMAL) CBC without Differential (06/13/2013 3:10 AM VIDEO GAMES MECHANIC) [facility] Signature Erythrocytes 3.42 (L) 4.32 - [facility] 5.72 LABORATORIES - X10(12)/L [facility] Comment: Drawn From Arterial Line MCV 84.5 81.2 - 95.1 FL [facility] Comment: Drawn From Arterial Line RBC Distrib Width 14.7 11.8 - 15.6 % [facility] Comment: Drawn From Arterial Line Platelet Count 147 (L) 150 - 450 X10(9)/L [facility] Comment: Drawn From Arterial Line Hemoglobin 10.3 (L) 13.5 - 17.5 G/DL [facility] Comment: Drawn From Arterial Line Hematocrit 28.9 (L) 38.8 - 50.0 % [facility] Comment: Drawn From Arterial Line Leukocytes 6.1 3.5 - 10.5 X10(9)/L [facility] IC [facility] Comment: Drawn From Arterial Line Specimen Anatomical Collection Method Collection Time Receive d Time (Source) Location / / Volume Laterality 06/13/2013 3:10 AM 3 3:10 VIDEO GAMES MECHANIC AM VIDEO GAMES MECHANIC Narrative [facility] - 06/13/2013 3:22 AM VIDEO GAMES MECHANIC Drawn From Arterial Line Dex Smith APRN C.N.P. LAB BLOOD ADD-ON Performing Organization Address City/State/ZIP Code Phon e Number [facility] - [address] [phone] [facility] DX Chest Portable 1 View (06/13/2013 2:07 AM VIDEO GAMES MECHANIC) Anatomical Region Laterality Modality Chest N/A Radiographic Imaging Specimen (Source) Anatomical Collection Method Collection Time Re ceived Time Location / / Volume Laterality 06/13/2013 2:07 AM VIDEO GAMES MECHANIC Narrative 06/13/2013 7:08 AM VIDEO GAMES MECHANIC 13-Jun-2013 02:07:00 ??Exam: Portable-Chest Indications: post-op ORIGINAL REPORT - 13-Jun-2013 02:17:00 Chest; 1 view: ETT with tip in good position. Right IJ SGC tip in the proximal RPA. NGT tip below the diaphragm. Complete hazy opacification of the right hemithorax without significant midline shift likely representin g a mixture of pleural fluid and atelect asis. Surgical clip drains RUQ. Electronically signed by: ?Luisa Meier MD [id number] 13-Jun-2013 02:1 7 I have reviewed the films/images and agr ee with the above interpretation. Electronically signed by: ?? Mayra Wells [id number] 13-Jun-20 13 07:08 Procedure Note Mayra Wells M.B., Ch.B. - 13-Jun-2013 02:07:00 Exam: Portable-Ches t Indications: [...] RUQ. Electronically signed by: Marah Meier MD [phone] 13-Jun-2013 02:1 7 I have reviewed the films/images and agr ee with the above interpretation. Electronically signed by: Mayra Wells [id number] 13-Jun-20 13 07:08 Dex Smith APRN, C.N.P. IMG DIAGNOSTIC IMAGING P ROCEDURES Alkaline Phosphatase (06/13/2013 1:52 AM VIDEO GAMES MECHANIC) athologist Signature Alkaline 51 45 - 115 [facility] Phosphatase, S U/L [facility] Comment: Drawn From Arterial Line Specimen Anatomical Collection Method Collection Time Receive d Time (Source) Location / / Volume Laterality 06/13/2013 1:52 AM 3 1:52 VIDEO GAMES MECHANIC AM VIDEO GAMES MECHANIC Narrative [facility] - 06/13/2013 2:29 AM VIDEO GAMES MECHANIC Drawn From Arterial Line Dex Smith APRN, C.N.P. LAB BLOOD ADD-ON Performing Organization Address City/State/ZIP Code Phon e Number [facility] - [address] [place], [place] [address] [facility] (ABNORMAL) Bilirubin, Total (06/13/2013 1:52 AM VIDEO GAMES MECHANIC) Patholo gist Method Time Signature Bilirubin, 4.8 (H) 0.1 - 1.0 [facility] Total, S MG/DL LABORATORIES [facility] Comment: Drawn From Arterial Line Specimen Anatomical Collection Method Collection Time Receive d Time (Source) Location / / Volume Laterality 06/13/2013 1:52 AM 3 1:52 VIDEO GAMES MECHANIC AM VIDEO GAMES MECHANIC Narrative [facility] [facility] - 06/13/2013 2:29 AM VIDEO GAMES MECHANIC Drawn From Arterial Line Dex Smith APRN, C.N.P. LAB BLOOD ADD-ON Performing Organization Address City/[facility]/ZIP Code Phon e Number [facility] LABORATORIES - [address] [address] [facility] (ABNORMAL) pH (06/13/2013 1:52 AM VIDEO GAMES MECHANIC) P athologist Signature pH 7.34 (L) 7.35 - [facility] 7.45 PH [facility] Comment: Drawn From Arterial Line Specimen Anatomical Collection Method Collection Time Receive d Time (Source) Location / / Volume Laterality 06/13/2013 1:52 AM 3 1:52 VIDEO GAMES MECHANIC AM VIDEO GAMES MECHANIC Narrative [facility] - 06/13/2013 2:02 AM VIDEO GAMES MECHANIC Drawn From Arterial Line Dex Smith APRN, C.N.P. LAB HISTORICAL ORDERS Performing Organization Address City/[facility]/ZIP Code Phon e Number [facility] - [address] (ABNORMAL) Fibrinogen (06/13/2013 1:52 AM VIDEO GAMES MECHANIC) Patholo gist Method Time Signature Fibrinogen, P 184 (L) 200 - 375 [facility] MG/DL [facility] Comment: Drawn From Arterial Line Specimen Anatomical Collection Method Collection Time Receive d Time (Source) Location / / Volume Laterality 06/13/2013 1:52 AM 3 1:52 VIDEO GAMES MECHANIC AM VIDEO GAMES MECHANIC Narrative [facility] - 06/13/2013 2:07 AM VIDEO GAMES MECHANIC Drawn From Arterial Line Dex Smith APRN, C.N.P. LAB BLOOD ADD-ON Performing Organization Address City/[facility]/ZIP Code Phon e Number [facility] LABORATORIES - [address] [address] [facility] (ABNORMAL) APTT (Activated Partial Thromboplastin Time) (06/13/2013 1:52 AM VIDEO GAMES MECHANIC) P athologist Signature APTT, P 42 (H) 28 - 38 SEC [facility] Comment: Drawn From Arterial Line Specimen Anatomical Collection Method Collection Time Receive d Time (Source) Location / / Volume Laterality 06/13/2013 1:52 AM 3 1:52 VIDEO GAMES MECHANIC AM VIDEO GAMES MECHANIC Narrative [facility] - 06/13/2013 2:07 AM VIDEO GAMES MECHANIC Drawn From Arterial Line Dex Smith APRN, C.N.P. LAB BLOOD ADD-ON Performing Organization Address City/[facility] Phon e Number [facility] - [address] [address] [facility] (ABNORMAL) ALT (Alanine Aminotransferase) (06/13/2013 1:52 AM VIDEO GAMES MECHANIC) Component Value Ref Test Analysis Performed At Patholo gist Range Method Time Signature Alanine 224 (H) 7 - 55 [facility] Aminotransferase U/L LABORATORIES - (ALT), S [facility] Comment: Drawn From Arterial Line Specimen Anatomical Collection Method Collection Time Receive d Time (Source) Location / / Volume Laterality 06/13/2013 1:52 AM 3 1:52 VIDEO GAMES MECHANIC AM VIDEO GAMES MECHANIC Narrative [facility] - 06/13/2013 2:29 AM VIDEO GAMES MECHANIC Drawn From Arterial Line Dex Smith APRN, C.N.P. LAB BLOOD ADD-ON Performing Organization Address City/[facility] Phon e Number [facility] - [address] [address] 05 [facility] (ABNORMAL) CBC without Differential (06/13/2013 1:52 AM VIDEO GAMES MECHANIC) P athologist Signature Hemoglobin 10.0 (L) 13.5 - [facility] 17.5 G/DL [facility] Comment: Drawn From Arterial Line Hematocrit 28.6 (L) 38.8 - 50.0 % [facility] LAB ORATORIES [facility] Comment: Drawn From Arterial Line RBC Distrib Width 14.7 11.8 - 15.6 % [facility] Comment: Drawn From Arterial Line Platelet Count 139 (L) 150 - 450 X10(9)/L [facility] Comment: Drawn From Arterial Line Leukocytes 5.4 3.5 - 10.5 X10(9)/L [facility] IC [facility] Comment: Drawn From Arterial Line Erythrocytes 3.32 (L) 4.32 - 5.72 X10(12)/L [facility] Comment: Drawn From Arterial Line MCV 86.1 81.2 - 95.1 FL [facility] Comment: Drawn From Arterial Line Specimen Anatomical Collection Method Collection Time Receive d Time (Source) Location / / Volume Laterality 06/13/2013 1:52 AM 3 1:52 VIDEO GAMES MECHANIC AM VIDEO GAMES MECHANIC Narrative [facility] - 06/13/2013 1:59 AM VIDEO GAMES MECHANIC Drawn From Arterial Line Dex Smith APRN, C.N.P. LAB BLOOD ADD-ON Performing Organization Address City/[facility] Phon e Number [facility] - [address] [place] [address] (ABNORMAL) Bilirubin, Direct (06/13/2013 1:52 AM VIDEO GAMES MECHANIC) [facility] Method Time Signature Bilirubin, 4.0 (H) 0.0 - 0.3 [facility] Direct, S MG/DL [facility] Comment: Drawn From Arterial Line Specimen Anatomical Collection Method Collection Time Receive d Time (Source) Location / / Volume Laterality 06/13/2013 1:52 AM 3 1:52 VIDEO GAMES MECHANIC AM VIDEO GAMES MECHANIC Narrative [facility] - 06/13/2013 2:29 AM VIDEO GAMES MECHANIC Drawn From Arterial Line Dex Smith APRN, C.N.P. LAB BLOOD ADD-ON Performing Organization Address City/[facility] Phon e Number [facility] - [address] [place] [address] [facility] (ABNORMAL) AST (Aspartate Aminotransferase) (06/13/2013 1:52 AM VIDEO GAMES MECHANIC) [facility] gist Method Time Signature AST, Total, S 348 (H) 8 - 48 U/L [facility] Comment: Drawn From Arterial Line Specimen Anatomical Collection Method Collection Time Receive d Time (Source) Location / / Volume Laterality 06/13/2013 1:52 AM 3 1:52 VIDEO GAMES MECHANIC AM VIDEO GAMES MECHANIC Narrative [facility] - 06/13/2013 2:29 AM VIDEO GAMES MECHANIC Drawn From Arterial Line Dex Smith APRN, C.N.P. LAB BLOOD ADD-ON Performing Organization Address City/State/ZIP Code Phon e Number [facility] LABORATORIES - [address] [address] [facility] (ABNORMAL) Calcium, Ionized (06/13/2013 1:52 AM VIDEO GAMES MECHANIC) Patholo gist Method Time Signature Calcium, 7.00 (>) 4.65 - [facility] Ionized, B 5.30 LABORATORIES - MG/DL [facility] Comment: Drawn From Arterial Line Specimen Anatomical Collection Method Collection Time Receive d Time (Source) Location / / Volume Laterality 06/13/2013 1:52 AM 3 1:52 VIDEO GAMES MECHANIC AM VIDEO GAMES MECHANIC Narrative [facility] - 06/13/2013 2:02 AM VIDEO GAMES MECHANIC Drawn From Arterial Line Dex Smith APRN, C.N.P. LAB BLOOD NON ADD-ON Performing Organization Address City/[facility] Code Phon e Number [facility] LABORATORIES - [address] [phone] [facility] (ABNORMAL) Electrolyte (Chem 4) Panel (06/13/2013 1:52 AM VIDEO GAMES MECHANIC) P athologist Signature Sodium, P 138 135 - 145 [facility] MMOL/L [facility] Comment: Drawn From Arterial Line Potassium, P 4.0 3.6 - 5.2 MMOL/L [facility] Comment: Drawn From Arterial Line Chloride, S 106 100 - 108 MMOL/L [facility] Comment: Drawn From Arterial Line Creatinine 1.4 (H) 0.8 - 1.3 MG/DL [facility] Comment: Drawn From Arterial Line Glucose, S 195 (H) 70 - 140 MG/DL [facility] Comment: Drawn From Arterial Line BUN (Blood Urea Nitrogen), S 19 8 - 24 MG/DL [facility][NOTE 3] S Comment: Drawn From Arterial Line HX Bicarbonate, P/S 19 (L) 22 - 29 MMOL/L [facility] Comment: Drawn From Arterial Line eGFR Non-Black/ 52 (L) >60 ML/MIN/BSA [facility][NOTE 3] S Comment: Drawn From Arterial Line eGFR-Black/ >60 >60 ML/MIN/[facility]A [facility] Comment: Drawn From Arterial Line Specimen Anatomical Collection Method Collection Time Receive d Time (Source) Location / / Volume Laterality 06/13/2013 1:52 AM 3 1:52 VIDEO GAMES MECHANIC AM VIDEO GAMES MECHANIC Narrative [facility] - 06/13/2013 2:14 AM VIDEO GAMES MECHANIC Drawn From Arterial Line Dex Smith APRN, C.N.P. LAB BLOOD ADD-ON Performing Organization Address City/[facility] Phon e Number [facility] - [address] [address] [facility] (ABNORMAL) PT (Prothrombin Time) with INR (06/13/2013 1:52 AM VIDEO GAMES MECHANIC) [facility] Signature Prothrombin 14.9 (H) 9.5 - [facility] Time, P 13.8 SEC [facility] Comment: Drawn From Arterial Line INR 1.3 0.8 - 1.2 [facility]ATO [facility] Comment: Drawn From Arterial Line Specimen Anatomical Collection Method Collection Time Receive d Time (Source) Location / / Volume Laterality 06/13/2013 1:52 AM 3 1:52 VIDEO GAMES MECHANIC AM VIDEO GAMES MECHANIC Narrative [facility] - 06/13/2013 2:07 AM VIDEO GAMES MECHANIC Drawn From Arterial Line Dex Smith APRN, C.N.P. LAB BLOOD ADD-ON Performing Organization Address City/[facility] Phon e Number [facility] - [address] [phone] [facility] (ABNORMAL) Blood Gas with Coox, Arterial (06/13/2013 1:44 AM VIDEO GAMES MECHANIC) [facility] Method Time Signature Device Vent [facility] Vent Mode AC [facility] Spont. 0 [facility] breaths/min [facility] Mech. 18 [facility] breaths/min [facility] pO2 88 80 - 100 [facility] MM HG [facility] pCO2 38 35 - 45 [facility] MM HG [facility] HCO3 20 (L) 22 - 26 [facility] MMOL/L [facility] Hb 10.1 (L) 13.5 - [facility] 17.5 G/DL [facility] O2Hb 94.2 94.0 - [facility] 98.0 % LABORATORIES [facility] COHb 1.7 <3.0 % [facility] Arterial Sample Art Line [facility] Site [facility] FIO2 0.50 .21=AIR [facility] End Expiratory 5.0 CM H2O [facility] Pressure [facility] Min. 11.6 [facility] Ventilation [facility] pH 7.33 (L) 7.35 - [facility] 7.45 PH [facility] Base Excess -5 (L) -2 - 2 [facility] MMOL/L [facility] MetHb 1.3 <1.6 % [facility] CtO2 13.5 (L) 21.0 - [facility] 23.0 VOL LABORATORIES - % [facility] Specimen Anatomical Collection Method Collection Time Receive d Time (Source) Location / / Volume Laterality 06/13/2013 1:44 AM 3 1:44 VIDEO GAMES MECHANIC AM VIDEO GAMES MECHANIC Dex Smith APRN, C.N.P. LAB BLOOD NON ADD-ON Performing Organization Address City/State/ZIP Code Phon e Number [facility] LABORATORIES - [address] [place], [place] [address] [facility] DX Abdomen Portable Anterior Posterior 1 View (06/13/2013 1:27 AM VIDEO GAMES MECHANIC) Anatomical Region Laterality Modality Abdomen N/A Radiographic Imaging Specimen (Source) Anatomical Collection Method Collection Time Re ceived Time Location / / Volume Laterality 06/13/2013 1:27 AM VIDEO GAMES MECHANIC Narrative 06/13/2013 7:08 AM VIDEO GAMES MECHANIC 13-Jun-2013 01:27:00 ??Exam: Portable-Abdomen Indications: OR 73 post liver transplant ORIGINAL REPORT - 13-Jun-2013 01:31:00 Portable-Abdomen, 1vw: NG tube with tip in the the stomach and side-port near the GE junction. Surgical drains in the right upper quadrant. Surgical clips RUQ. Nonobstructive bowel gas pattern. Lung bases are clear. Degenerative changes of the lumbar spine. Electronically signed by: ?? Louie Tavares MD [id number] 13-Jun-2013 01:31 I have reviewed the films/images and agr ee with the above interpretation. Electronically signed by: ?? Mayra Wells [id number] 13-Jun-20 13 07:08 Procedure Note Mayra Wells [...] spine. Electronically signed by: Louie Tavares MD [id number] 13-Jun-2013 01:31 I have reviewed the films/images and agr ee with the above interpretation. Electronically signed by: Mayra Wells [id number] 13-Jun-20 13 07:08 He Grayson M.D. IMG DIAGNOSTIC IMAGING PROCE [facility] Potassium, Blood (06/13/2013 12:34 AM VIDEO GAMES MECHANIC) P athologist Signature Potassium, B 4.3 3.6 - 5.2 [facility] MMOL/L LABORATORIES - [facility] Comment: [place]wn in [place] Specimen Anatomical Collection Method Collection Time Receive d Time (Source) Location / / Volume Laterality 06/13/2013 12:34 06/13/2013 AM VIDEO GAMES MECHANIC 12:34 AM VIDEO GAMES MECHANIC Narrative [facility] - 06/13/2013 12:43 AM VIDEO GAMES MECHANIC Drawn in [place] Historical Provider LAB BLOOD NON ADD-ON Performing Organization Address City/State/ZIP Code Phon e Number [facility] LABORATORIES - [address] [place], [place] [address] [facility] (ABNORMAL) Calcium, Ionized (06/13/2013 12:34 AM VIDEO GAMES MECHANIC) Patholo gist Method Time Signature Calcium, 6.43 (H) 4.65 - [facility] Ionized, B 5.30 LABORATORIES - MG/DL [facility] Comment: [place]wn [place] Specimen Anatomical Collection Method Collection Time Receive d Time (Source) Location / / Volume Laterality 06/13/2013 12:34 06/13/2013 AM VIDEO GAMES MECHANIC 12:34 AM VIDEO GAMES MECHANIC Narrative [facility] - 06/13/2013 12:42 AM VIDEO GAMES MECHANIC Drawn in [place] Historical Provider LAB BLOOD NON ADD-ON Performing Organization Address City/[facility]/ZIP Code Phon e Number [facility] LABORATORIES - [address] [address] [facility] (ABNORMAL) Platelet Count (06/13/2013 12:34 AM VIDEO GAMES MECHANIC) [facility] Method Time Signature Platelet Count 129 (L) 150 - 450 [facility] X10(9)/L [facility] Comment: [place]wn [place] Specimen Anatomical Collection Method Collection Time Receive d Time (Source) Location / / Volume Laterality 06/13/2013 12:34 06/13/2013 AM VIDEO GAMES MECHANIC 12:34 AM VIDEO GAMES MECHANIC Narrative [facility] - 06/13/2013 12:43 AM VIDEO GAMES MECHANIC Drawn in [place] Historical Provider LAB BLOOD ADD-ON Performing Organization Address City/[facility] Phon e Number [facility] LABORATORIES - [address] [phone] [facility] (ABNORMAL) Fibrinogen (06/13/2013 12:34 AM VIDEO GAMES MECHANIC) [facility] Method Time Signature Fibrinogen, P 130 (L) 200 - 375 [facility] MG/DL [facility] Comment: [place]wn [place] Specimen Anatomical Collection Method Collection Time Receive d Time (Source) Location / / Volume Laterality 06/13/2013 12:34 06/13/2013 AM VIDEO GAMES MECHANIC 12:34 AM VIDEO GAMES MECHANIC Narrative [facility] - 06/13/2013 12:56 AM VIDEO GAMES MECHANIC Drawn in [place] Historical Provider LAB BLOOD ADD-ON Performing Organization Address City/[facility]/ZIP Code Phon e Number [facility] LABORATORIES - [address] [phone] [facility] (ABNORMAL) Blood Gas with Coox, Arterial (06/13/2013 12:34 AM VIDEO GAMES MECHANIC) P athologist Signature pH 7.27 (L) 7.35 - [facility] 7.45 PH [facility] Comment: Drawn in [place] Base Excess -10 (L) -2 - 2 MMOL/L [facility] LA BORATORIES [facility] Comment: Drawn in [place] O2Hb 96.6 94.0 - 98.0 % [facility] LABO RATORIES [facility] Comment: Drawn in [place] COHb 1.5 <3.0 % [facility] Comment: [place]wn in [place] pO2 111 (H) 80 - 100 MM HG [facility] Comment: [place]wn [place] pCO2 36 35 - 45 MM HG [facility] ER[facility] Comment: [place]wn in [place] HCO3 17 (L) 22 - 26 MMOL/L [facility] Comment: Drawn in [place] Hb 10.3 (L) 13.5 - 17.5 G/DL [facility] Comment: Drawn in [place] MetHb <1.0 <1.6 % [facility] Comment: [place]wn in [place] CtO2 14.2 (L) 21.0 - 23.0 VOL % [facility] Comment: [place]wn [place] Specimen Anatomical Collection Method Collection Time Receive d Time (Source) Location / / Volume Laterality 06/13/2013 12:34 06/13/2013 AM VIDEO GAMES MECHANIC 12:34 AM VIDEO GAMES MECHANIC Narrative [facility] - 06/13/2013 12:41 AM VIDEO GAMES MECHANIC Drawn in [place] Historical Provider LAB BLOOD NON ADD-ON Performing Organization Address City/[facility] Phon e Number [facility] - [address] [address] [facility] (ABNORMAL) PT (Prothrombin Time) with INR (06/13/2013 12:34 AM VIDEO GAMES MECHANIC) [facility] gist Method Time Signature Prothrombin 16.8 (H) 9.5 - [facility] Time, P 13.8 SEC [facility] Comment: Drawn in [place] INR 1.5 0.8 - 1.2 [facility] Comment: [place]wn [place] Specimen Anatomical Collection Method Collection Time Receive d Time (Source) Location / / Volume Laterality 06/13/2013 12:34 06/13/2013 AM VIDEO GAMES MECHANIC 12:34 AM VIDEO GAMES MECHANIC Narrative [facility] - 06/13/2013 12:50 AM VIDEO GAMES MECHANIC Drawn in [place] Historical Provider LAB BLOOD ADD-ON Performing Organization Address City/[facility] Phon e Number [facility] - [address] [address] 05 [facility] (ABNORMAL) Sodium (06/13/2013 12:34 AM VIDEO GAMES MECHANIC) P athologist Signature Sodium, B 134 (L) 135 - 145 [facility] MMOL/L [facility] Comment: [place]wn in [place] Specimen Anatomical Collection Method Collection Time Receive d Time (Source) Location / / Volume Laterality 06/13/2013 12:34 06/13/2013 AM VIDEO GAMES MECHANIC 12:34 AM VIDEO GAMES MECHANIC Narrative [facility] - 06/13/2013 12:43 AM VIDEO GAMES MECHANIC Drawn in [place] Historical Provider LAB BLOOD ADD-ON Performing Organization Address City/[facility] Phon e Number [facility] - [address] [address] [facility] Thromboelastograph, Kaolin, Blood (06/13/2013 12:34 AM VIDEO GAMES MECHANIC) athologist Signature R + K 7.7 4.9 - 10.8 [facility] Comment: Drawn in [place] Angle 67.0 64.0 - 78.1 DEGREES [facility] Comment: Drawn in [place] R Time 6.1 4.0 - 9.0 MIN [facility] Comment: [place]wn in [place] K Time 1.6 1.0 - 1.8 MIN [facility] Comment: Drawn in [place] Maximum Amplitude 58.6 57.1 - 72.[address] [facility] Comment: [place]wn [place] Ly30 0.0 0.0 - 4.8 % [facility] LABORA [facility] Comment: [place]wn [place] Specimen Anatomical Collection Method Collection Time Receive d Time (Source) Location / / Volume Laterality 06/13/2013 12:34 06/13/2013 AM VIDEO GAMES MECHANIC 12:34 AM VIDEO GAMES MECHANIC Narrative [facility] - 06/13/2013 1:37 AM VIDEO GAMES MECHANIC Drawn in [place] Historical Provider LAB BLOOD NON ADD-ON Performing Organization Address City/[facility]/ZIP Code Phon e Number [facility] - [address] [address] [facility] (ABNORMAL) Glucose, Whole Blood (06/13/2013 12:34 AM VIDEO GAMES MECHANIC) athologist Signature Glucose, S 220 (H) 70 - 140 [facility] MG/DL [facility] Comment: [place]wn [place] Specimen Anatomical Collection Method Collection Time Receive d Time (Source) Location / / Volume Laterality 06/13/2013 12:34 06/13/2013 AM VIDEO GAMES MECHANIC 12:34 AM VIDEO GAMES MECHANIC Narrative [facility] - 06/13/2013 12:43 AM VIDEO GAMES MECHANIC Drawn in [place] Historical Provider LAB BLOOD TROPONIN Performing Organization Address City/[facility] Phon e Number [facility] - [address] (ABNORMAL) APTT (Activated Partial Thromboplastin Time) (06/13/2013 12:34 AM VIDEO GAMES MECHANIC) P athologist Signature APTT, P 52 (H) 28 - 38 SEC [facility] Comment: [place]wn [place] Specimen Anatomical Collection Method Collection Time Receive d Time (Source) Location / / Volume Laterality 06/13/2013 12:34 06/13/2013 AM VIDEO GAMES MECHANIC 12:34 AM VIDEO GAMES MECHANIC Narrative [facility] - 06/13/2013 12:56 AM VIDEO GAMES MECHANIC Drawn in [place] Historical Provider LAB BLOOD ADD-ON Performing Organization Address City/[facility] Phon e Number [facility] - [address] Prepare cryoprecipitate (06/13/2013 12:11 AM VIDEO GAMES MECHANIC) Analysis Performed At Patho logist Time Signature HXCRYO # UNITS 2 [facility] TRANSFUSED LABORATORIES [facility] HXCRYO UNIT CRYO [facility] INFO [facility] Comment: Unit Blood Type O Rh Unk Unit Number [id number] Component Type Cryoprecipitated [facility] - Po oled, Frozen Issue Date/Time Unit Blood Type O Rh Unk Unit Number [id number] Component Type Cryoprecipitated [facility] - Po oled, Frozen Issue Date/Time [id number] Specimen (Source) Anatomical Collection Method Collection Time Re ceived Time Location / / Volume Laterality 06/13/2013 12:11 AM VIDEO GAMES MECHANIC Historical Provider BLOOD BANK PRODUCT ORDERABLE S Performing Organization Address City/[facility] Phon e Number [facility] - [address] (ABNORMAL) APTT (Activated Partial Thromboplastin Time) (06/12/2013 11:34 PM VIDEO GAMES MECHANIC) P athologist Signature APTT, P 55 (H) 28 - 38 SEC [facility] Comment: [place]wn [place] Specimen Anatomical Collection Method Collection Time Receive d Time (Source) Location / / Volume Laterality 06/12/2013 11:34 06/12/2013 PM VIDEO GAMES MECHANIC 11:34 PM VIDEO GAMES MECHANIC Narrative [facility] - 06/12/2013 11:49 PM VIDEO GAMES MECHANIC Drawn in [place] Historical Provider LAB BLOOD ADD-ON Performing Organization Address City/[facility] Phon e Number [facility] LABORATORIES - [address] [place], [place] [address] [facility] (ABNORMAL) Sodium (06/12/2013 11:34 PM VIDEO GAMES MECHANIC) athologist Signature Sodium, B 134 (L) 135 - 145 [facility] MMOL/L [facility] Comment: [place]wn [place] Specimen Anatomical Collection Method Collection Time Receive d Time (Source) Location / / Volume Laterality 06/12/2013 11:34 06/12/2013 PM VIDEO GAMES MECHANIC 11:34 PM VIDEO GAMES MECHANIC Narrative [facility] - 06/12/2013 11:41 PM VIDEO GAMES MECHANIC Drawn in [place] Historical Provider LAB BLOOD ADD-ON Performing Organization Address City/[facility] Phon e Number [facility] - [address] [address] 05 [facility] (ABNORMAL) Thromboelastograph, Kaolin, Blood (06/12/2013 11:34 PM VIDEO GAMES MECHANIC) P athologist Signature R Time 5.9 4.0 - 9.0 [facility] MIN [facility] Comment: [place] K Time 1.8 1.0 - 1.8 MIN [facility] LABO RATORIES [facility] Comment: [place] R + K 7.7 4.9 - 10.8 MIN [facility] LAB ORATORIES [facility] Comment: [place] Angle 66.8 64.0 - 78.1 DEGREES [facility] Comment: [place] Maximum Amplitude 54.4 (L) 57.1 - 72.[address] [facility] Comment: [place] Ly30 0.0 0.0 - 4.8 % [facility] LAB[facility]A [facility] Comment: [place] Specimen Anatomical Collection Method Collection Time Receive d Time (Source) Location / / Volume Laterality 06/12/2013 11:34 06/12/2013 PM VIDEO GAMES MECHANIC 11:34 PM VIDEO GAMES MECHANIC Narrative [facility] - 06/13/2013 12:43 AM VIDEO GAMES MECHANIC [place] Historical Provider LAB BLOOD NON ADD-ON Performing Organization Address City/[facility]/ZIP Code Phon e Number [facility] LABORATORIES - [address] [phone] 05 [facility] Calcium, Ionized (06/12/2013 11:34 PM VIDEO GAMES MECHANIC) P athologist Signature Calcium, 4.68 4.65 - [facility] Ionized, B 5.30 MG/DL [facility] Comment: [place] Specimen Anatomical Collection Method Collection Time Receive d Time (Source) Location / / Volume Laterality 06/12/2013 11:34 06/12/2013 PM VIDEO GAMES MECHANIC 11:34 PM VIDEO GAMES MECHANIC Narrative [facility] - 06/12/2013 11:41 PM VIDEO GAMES MECHANIC [place] Historical Provider LAB BLOOD NON ADD-ON Performing Organization Address City/[facility]/ZIP Code Phon e Number [facility] - [address] [address] 05 [facility] (ABNORMAL) Fibrinogen (06/12/2013 11:34 PM VIDEO GAMES MECHANIC) Patholo gist Method Time Signature Fibrinogen, P 135 (L) 200 - 375 [facility] MG/DL [facility] Comment: [place] Specimen Anatomical Collection Method Collection Time Receive d Time (Source) Location / / Volume Laterality 06/12/2013 11:34 06/12/2013 PM VIDEO GAMES MECHANIC 11:34 PM VIDEO GAMES MECHANIC Narrative [facility] - 06/12/2013 11:53 PM VIDEO GAMES MECHANIC [place] Historical Provider LAB BLOOD ADD-ON Performing Organization Address City/State/ZIP Code Phon e Number [facility] LABORATORIES - [address] [phone] 05 [facility] (ABNORMAL) Platelet Count (06/12/2013 11:34 PM VIDEO GAMES MECHANIC) Analysis Performed At Patho logist Time Signature Platelet Count 73 (L) 150 - 450 [facility] X10(9)/L [facility] Comment: [place] Specimen Anatomical Collection Method Collection Time Receive d Time (Source) Location / / Volume Laterality 06/12/2013 11:34 06/12/2013 PM VIDEO GAMES MECHANIC 11:34 PM VIDEO GAMES MECHANIC Narrative [facility] - 06/12/2013 11:40 PM VIDEO GAMES MECHANIC [place] Historical Provider LAB BLOOD ADD-ON Performing Organization Address City/[facility] Code Phon e Number [facility] - [address] [phone] 05 [facility] (ABNORMAL) Glucose, Whole Blood (06/12/2013 11:34 PM VIDEO GAMES MECHANIC) P athologist Signature Glucose, S 249 (H) 70 - 140 [facility] MG/DL [facility] Comment: [place] Specimen Anatomical Collection Method Collection Time Receive d Time (Source) Location / / Volume Laterality 06/12/2013 11:34 06/12/2013 PM VIDEO GAMES MECHANIC 11:34 PM VIDEO GAMES MECHANIC Narrative [facility] - 06/12/2013 11:41 PM VIDEO GAMES MECHANIC [place] Historical Provider LAB BLOOD TROPONIN Performing Organization Address City/[facility]/ZIP [facility] Phon e Number [facility] - [address] [place] [address] 05 [facility] Potassium, Blood (06/12/2013 11:34 PM VIDEO GAMES MECHANIC) P athologist Signature Potassium, B 4.6 3.6 - 5.2 [facility] MMOL/L [facility] Comment: [place] Specimen Anatomical Collection Method Collection Time Receive d Time (Source) Location / / Volume Laterality 06/12/2013 11:34 06/12/2013 PM VIDEO GAMES MECHANIC 11:34 PM VIDEO GAMES MECHANIC Narrative [facility] - 06/12/2013 11:41 PM VIDEO GAMES MECHANIC [place] Historical Provider LAB BLOOD NON ADD-ON Performing Organization Address City/[facility]/ZIP Code Phon e Number [facility] - [address] [phone] 05 [facility] (ABNORMAL) PT (Prothrombin Time) with INR (06/12/2013 11:34 PM VIDEO GAMES MECHANIC) Patholo gist Method Time Signature Prothrombin 17.9 (H) 9.5 - [facility] Time, P 13.8 SEC [facility] Comment: [place] INR 1.6 0.8 - 1.2 [facility] LABORATO RASHEEDA - [facility] Comment: [place] Specimen Anatomical Collection Method Collection Time Receive d Time (Source) Location / / Volume Laterality 06/12/2013 11:34 06/12/2013 PM VIDEO GAMES MECHANIC 11:34 PM VIDEO GAMES MECHANIC Narrative [facility] - 06/12/2013 11:48 PM VIDEO GAMES MECHANIC [place] Historical Provider LAB BLOOD ADD-ON Performing Organization Address City/[facility]/ZIP Code Phon e Number [facility] - [address] [phone] 05 [facility] (ABNORMAL) Blood Gas with Coox, Arterial (06/12/2013 11:34 PM VIDEO GAMES MECHANIC) P athologist Signature pH 7.24 (L) 7.35 - [facility] 7.45 PH [facility] Comment: [place] Base Excess -13 (L) -2 - 2 MMOL/L [facility] Comment: [place] HCO3 14 (L) 22 - 26 MMOL/L [facility] Comment: [place] Hb 9.0 (L) 13.5 - 17.5 G/DL [facility] Comment: [place] MetHb <1.0 <1.6 % [facility] Comment: [place] CtO2 12.6 (L) 21.0 - 23.0 VOL % [facility] Comment: [place] pO2 131 (H) 80 - 100 MM HG [facility] Comment: [place] pCO2 34 (L) 35 - 45 MM HG [facility] Comment: [place] O2Hb 97.3 94.0 - 98.0 % [facility] Comment: [place] COHb 1.1 <3.0 % [facility] Comment: [place] Specimen Anatomical Collection Method Collection Time Receive d Time (Source) Location / / Volume Laterality 06/12/2013 11:34 06/12/2013 PM VIDEO GAMES MECHANIC 11:34 PM VIDEO GAMES MECHANIC Narrative [facility] - 06/12/2013 11:41 PM VIDEO GAMES MECHANIC [place] Historical Provider LAB BLOOD NON ADD-ON Performing Organization Address City/[facility] Code Phon e Number [facility] - [address] [phone] 05 [facility] Prepare platelets (06/12/2013 11:03 PM VIDEO GAMES MECHANIC) Patholo gist Method Time Signature HXPLT # UNITS 2 [facility] TRANSFUSED [facility] HXPLATELETS UNIT PLT [facility] INFO [facility] Comment: Unit Blood Type O Pos Unit Number [id number] Component Type Platelets, Apheresis Leuk oreduced, Irradiated, Bag 1 Issue Date/Time [id number] Unit Blood Type O Pos Unit Number [id number] Component Type Platelets, Apheresis Leuk oreduced, Irradiated, Bag 2 Issue Date/Time [id number] Specimen (Source) Anatomical Collection Method Collection Time Re ceived Time Location / / Volume Laterality 06/12/2013 11:03 PM VIDEO GAMES MECHANIC Historical Provider BLOOD BANK PRODUCT ORDERABLE S Performing Organization Address City/[facility] Phon e Number [facility] [address] (ABNORMAL) APTT (Activated Partial Thromboplastin Time) (06/12/2013 11:00 PM VIDEO GAMES MECHANIC) athologist Signature APTT, P 95 (H) 28 - 38 SEC [facility] Comment: [place] Specimen Anatomical Collection Method Collection Time Receive d Time (Source) Location / / Volume Laterality 06/12/2013 11:00 06/12/2013 PM VIDEO GAMES MECHANIC 11:00 PM VIDEO GAMES MECHANIC Narrative [facility] - 06/12/2013 11:17 PM VIDEO GAMES MECHANIC [place] Historical Provider LAB BLOOD ADD-ON Performing Organization Address [facility] Phon e Number [facility] - [address] [phone] 05 [facility] (ABNORMAL) Blood Gas with Coox, Arterial (06/12/2013 11:00 PM VIDEO GAMES MECHANIC) P athologist Signature pH 7.20 (L) 7.35 - [facility] 7.45 PH [facility] Comment: [place] Base Excess -14 (L) -2 - 2 MMOL/L [facility] LA BORATORIES [facility] Comment: [place] O2Hb 97.8 94.0 - 98.0 % [facility] LABO RATORIES [facility] Comment: [place] COHb <1.0 <3.0 % [facility] LABORATO RASHEEDA [facility] Comment: [place] pO2 116 (H) 80 - 100 MM HG [facility] Comment: [place] pCO2 35 35 - 45 MM HG [facility] LABO RATORIES [facility] Comment: [place] HCO3 14 (L) 22 - 26 MMOL/L [facility] Comment: [place] Hb 11.0 (L) 13.5 - 17.5 G/DL [facility] Comment: [place] MetHb <1.0 <1.6 % [facility] LABORATO RASHEEDA [facility] Comment: [place] CtO2 15.3 (L) 21.0 - 23.0 VOL % [facility] Comment: [place] Specimen Anatomical Collection Method Collection Time Receive d Time (Source) Location / / Volume Laterality 06/12/2013 11:00 06/12/2013 PM VIDEO GAMES MECHANIC 11:00 PM VIDEO GAMES MECHANIC Narrative [facility] - 06/12/2013 11:06 PM VIDEO GAMES MECHANIC [place] Historical Provider LAB BLOOD NON ADD-ON Performing Organization Address City/[facility] Phon e Number [facility] - [address] (ABNORMAL) Sodium (06/12/2013 11:00 PM VIDEO GAMES MECHANIC) athologist Signature Sodium, B 131 (L) 135 - 145 [facility] MMOL/L [facility] Comment: [place] Specimen Anatomical Collection Method Collection Time Receive d Time (Source) Location / / Volume Laterality 06/12/2013 11:00 06/12/2013 PM VIDEO GAMES MECHANIC 11:00 PM VIDEO GAMES MECHANIC Narrative [facility] - 06/12/2013 11:06 PM VIDEO GAMES MECHANIC [place] Historical Provider LAB BLOOD ADD-ON Performing Organization Address City/[facility] Phon e Number [facility] - [address] [phone] [facility] (ABNORMAL) Thromboelastograph, Kaolin, Blood (06/12/2013 11:00 PM VIDEO GAMES MECHANIC) athologist Signature R + K 12.6 (H) 4.9 - 10.8 [facility] Comment: [place] Angle 42.3 (L) 64.0 - 78.1 [facility] Comment: [place] R Time 5.0 4.0 - 9.0 MIN [facility] Comment: [place] K Time 7.6 (H) 1.0 - 1.8 MIN [facility] Comment: [place] Maximum Amplitude 32.3 (L) 57.1 - 72.[address] [facility] Comment: [place] Ly30 0.0 0.0 - 4.8 % [facility] Comment: [place] Specimen Anatomical Collection Method Collection Time Receive d Time (Source) Location / / Volume Laterality 06/12/2013 11:00 06/12/2013 PM VIDEO GAMES MECHANIC 11:00 PM VIDEO GAMES MECHANIC Narrative [facility] - 06/13/2013 12:04 AM VIDEO GAMES MECHANIC [place] Historical Provider LAB BLOOD NON ADD-ON Performing Organization Address City/[facility] Phon e Number [facility] - [address] [phone] [facility] (ABNORMAL) Potassium, Blood (06/12/2013 11:00 PM VIDEO GAMES MECHANIC) Analysis Performed At Patho logist Time Signature Potassium, B 5.4 (H) 3.6 - 5.2 [facility] MMOL/L [facility] Comment: [place] Specimen Anatomical Collection Method Collection Time Receive d Time (Source) Location / / Volume Laterality 06/12/2013 11:00 06/12/2013 PM VIDEO GAMES MECHANIC 11:00 PM VIDEO GAMES MECHANIC Narrative [facility] - 06/12/2013 11:06 PM VIDEO GAMES MECHANIC [place] Historical Provider LAB BLOOD NON ADD-ON Performing Organization Address City/State/[facility] Phon e Number [facility] - [address] [address] 05 [facility] (ABNORMAL) Fibrinogen (06/12/2013 11:00 PM VIDEO GAMES MECHANIC) Patholo gist Method Time Signature Fibrinogen, P <60 (<) 200 - 375 [facility] MG/DL [facility] Comment: [place] Specimen Anatomical Collection Method Collection Time Receive d Time (Source) Location / / Volume Laterality 06/12/2013 11:00 06/12/2013 PM VIDEO GAMES MECHANIC 11:00 PM VIDEO GAMES MECHANIC Narrative [facility] - 06/12/2013 11:29 PM VIDEO GAMES MECHANIC [place] Historical Provider LAB BLOOD ADD-ON Performing Organization Address City/[facility]/ZIP Code Phon e Number [facility] - [address] [phone] 05 [facility] (ABNORMAL) Glucose, Whole Blood (06/12/2013 11:00 PM VIDEO GAMES MECHANIC) P athologist Signature Glucose, S 257 (H) 70 - 140 [facility] MG/DL [facility] Comment: [place] Specimen Anatomical Collection Method Collection Time Receive d Time (Source) Location / / Volume Laterality 06/12/2013 11:00 06/12/2013 PM VIDEO GAMES MECHANIC 11:00 PM VIDEO GAMES MECHANIC Narrative [facility] - 06/12/2013 11:06 PM VIDEO GAMES MECHANIC [place] Historical Provider LAB BLOOD TROPONIN Performing Organization Address City/[facility]/ZIP Code Phon e Number [facility] - [address] [place] [address] [facility] (ABNORMAL) Platelet Count (06/12/2013 11:00 PM VIDEO GAMES MECHANIC) Analysis Performed At Patho logist Time Signature Platelet Count 39 (<) 150 - 450 [facility] X10(9)/L [facility] Comment: [place] Specimen Anatomical Collection Method Collection Time Receive d Time (Source) Location / / Volume Laterality 06/12/2013 11:00 06/12/2013 PM VIDEO GAMES MECHANIC 11:00 PM VIDEO GAMES MECHANIC Narrative [facility] - 06/12/2013 11:11 PM VIDEO GAMES MECHANIC [place] Historical Provider LAB BLOOD ADD-ON Performing Organization Address City/[facility]/ZIP Code Phon e Number [facility] - [address] [place] [address] [facility] (ABNORMAL) PT (Prothrombin Time) with INR (06/12/2013 11:00 PM VIDEO GAMES MECHANIC) Patholo gist Method Time Signature Prothrombin 36.9 (H) 9.5 - [facility] Time, P 13.8 SEC [facility] Comment: [place] INR 3.5 0.8 - 1.2 [facility] LABORATO RASHEEDA - [facility] Comment: [place] Specimen Anatomical Collection Method Collection Time Receive d Time (Source) Location / / Volume Laterality 06/12/2013 11:00 06/12/2013 PM VIDEO GAMES MECHANIC 11:00 PM VIDEO GAMES MECHANIC Narrative [facility] - 06/12/2013 11:15 PM VIDEO GAMES MECHANIC [place] Historical Provider LAB BLOOD ADD-ON Performing Organization Address City/[facility] Code Phon e Number [facility] LABORATORIES - [address] [phone] 05 [facility] (ABNORMAL) Calcium, Ionized (06/12/2013 11:00 PM VIDEO GAMES MECHANIC) Patholo gist Method Time Signature Calcium, 5.35 (H) 4.65 - [facility] Ionized, B 5.30 LABORATORIES - MG/DL [facility] Comment: [place] Specimen Anatomical Collection Method Collection Time Receive d Time (Source) Location / / Volume Laterality 06/12/2013 11:00 06/12/2013 PM VIDEO GAMES MECHANIC 11:00 PM VIDEO GAMES MECHANIC Narrative [facility] - 06/12/2013 11:06 PM VIDEO GAMES MECHANIC [place] Historical Provider LAB BLOOD NON ADD-ON Performing Organization Address City/[facility] Phon e Number [facility] LABORATORIES - [address] [phone] 05 [facility] Prepare cryoprecipitate (06/12/2013 10:42 PM VIDEO GAMES MECHANIC) Analysis Performed At Patho logist Time Signature HXCRYO # UNITS 2 [facility] TRANSFUSED LABORATORIES [facility] HXCRYO UNIT CRYO [facility] INFO [facility] Comment: Unit Blood Type O Rh Unk Unit Number [id number] Component Type Cryoprecipitated [facility] - Po oled, Frozen Issue Date/Time Unit Blood Type O Rh Unk Unit Number [id number] Component Type Cryoprecipitated [facility] - Po oled, Frozen Issue Date/Time [id number] Specimen (Source) Anatomical Collection Method Collection Time Re ceived Time Location / / Volume Laterality 06/12/2013 10:42 PM VIDEO GAMES MECHANIC Historical Provider BLOOD BANK PRODUCT ORDERABLE S Performing Organization Address City/[facility] Phon e Number [facility] LABORATORIES - [address] [address] 05 [facility] (ABNORMAL) Fibrinogen (06/12/2013 10:32 PM VIDEO GAMES MECHANIC) Analysis Performed At Patho logist Time Signature Fibrinogen, P 70 (L) 200 - 375 [facility] MG/DL [facility] Comment: [place] Specimen Anatomical Collection Method Collection Time Receive d Time (Source) Location / / Volume Laterality 06/12/2013 10:32 06/12/2013 PM VIDEO GAMES MECHANIC 10:32 PM VIDEO GAMES MECHANIC Narrative [facility] - 06/12/2013 10:54 PM VIDEO GAMES MECHANIC [place] Historical Provider LAB BLOOD ADD-ON Performing Organization Address City/[facility]/ZIP Code Phon e Number [facility] LABORATORIES - [address] [phone] [facility] (ABNORMAL) Calcium, Ionized (06/12/2013 10:32 PM VIDEO GAMES MECHANIC) Patholo gist Method Time Signature Calcium, 3.06 (L) 4.65 - [facility] Ionized, B 5.30 LABORATORIES - MG/DL [facility] Comment: [place] Specimen Anatomical Collection Method Collection Time Receive d Time (Source) Location / / Volume Laterality 06/12/2013 10:32 06/12/2013 PM VIDEO GAMES MECHANIC 10:32 PM VIDEO GAMES MECHANIC Narrative [facility] - 06/12/2013 10:38 PM VIDEO GAMES MECHANIC [place] Historical Provider LAB BLOOD NON ADD-ON Performing Organization Address City/[facility]/ZIP Code Phon e Number [facility] LABORATORIES - [address] [phone] [facility] (ABNORMAL) Platelet Count (06/12/2013 10:32 PM VIDEO GAMES MECHANIC) Analysis Performed At Patho logist Time Signature Platelet Count 23 (<) 150 - 450 [facility] X10(9)/L [facility] Comment: [place] Specimen Anatomical Collection Method Collection Time Receive d Time (Source) Location / / Volume Laterality 06/12/2013 10:32 06/12/2013 PM VIDEO GAMES MECHANIC 10:32 PM VIDEO GAMES MECHANIC Narrative [facility] - 06/12/2013 10:45 PM VIDEO GAMES MECHANIC [place] Historical Provider LAB BLOOD ADD-ON Performing Organization Address City/[facility]/ZIP [facility] Phon e Number [facility] LABORATORIES - [address] [phone] 05 [facility] (ABNORMAL) Blood Gas with Coox, Arterial (06/12/2013 10:32 PM VIDEO GAMES MECHANIC) P athologist Signature pO2 412 (H) 80 - 100 [facility] MM HG [facility] Comment: [place] pCO2 38 35 - 45 MM HG [facility] Comment: [place] HCO3 11 (L) 22 - 26 MMOL/L [facility] Comment: [place] Hb 10.7 (L) 13.5 - 17.5 G/DL [facility] Comment: [place] O2Hb 98.3 (H) 94.0 - 98.0 % [facility] Comment: [place] COHb <1.0 <3.0 % [facility] Comment: [place] MetHb <1.0 <1.6 % [facility] Comment: [place] CtO2 15.9 (L) 21.0 - 23.0 VOL % [facility] Comment: [place] pH 7.06 (L) 7.35 - 7.45 PH [facility] Comment: [place] Base Excess -20 (L) -2 - 2 MMOL/L [facility] Comment: [place] Specimen Anatomical Collection Method Collection Time Receive d Time (Source) Location / / Volume Laterality 06/12/2013 10:32 06/12/2013 PM VIDEO GAMES MECHANIC 10:32 PM VIDEO GAMES MECHANIC Narrative [facility] - 06/12/2013 10:38 PM VIDEO GAMES MECHANIC [place] Historical Provider LAB BLOOD NON ADD-ON Performing Organization Address City/[facility]/ZIP Code Phon e Number [facility] - 200 [place], [place] [address] 05 [facility] (ABNORMAL) APTT (Activated Partial Thromboplastin Time) (06/12/2013 10:32 PM VIDEO GAMES MECHANIC) P athologist Signature APTT, P 67 (H) 28 - 38 SEC [facility] Comment: [place] Specimen Anatomical Collection Method Collection Time Receive d Time (Source) Location / / Volume Laterality 06/12/2013 10:32 06/12/2013 PM VIDEO GAMES MECHANIC 10:32 PM VIDEO GAMES MECHANIC Narrative [facility] - 06/12/2013 10:54 PM VIDEO GAMES MECHANIC [place] Historical Provider LAB BLOOD ADD-ON Performing Organization Address City/State/ZIP Code Phon e Number [facility] LABORATORIES - [address] [phone] 05 [facility] (ABNORMAL) Glucose, Whole Blood (06/12/2013 10:32 PM VIDEO GAMES MECHANIC) P athologist Signature Glucose, S 281 (H) 70 - 140 [facility] MG/DL [facility] Comment: [place] Specimen Anatomical Collection Method Collection Time Receive d Time (Source) Location / / Volume Laterality 06/12/2013 10:32 06/12/2013 PM VIDEO GAMES MECHANIC 10:32 PM VIDEO GAMES MECHANIC Narrative [facility] - 06/12/2013 10:38 PM VIDEO GAMES MECHANIC [place] Historical Provider LAB BLOOD TROPONIN Performing Organization Address City/[facility]/ZIP Code Phon e Number [facility] - [address] [address] 05 [facility] (ABNORMAL) PT (Prothrombin Time) with INR (06/12/2013 10:32 PM VIDEO GAMES MECHANIC) Patholo gist Method Time Signature Prothrombin 25.6 (H) 9.5 - [facility] Time, P 13.8 SEC [facility] Comment: [place] INR 2.4 0.8 - 1.2 [facility] LABORATO RASHEEDA - [facility] Comment: [place] Specimen Anatomical Collection Method Collection Time Receive d Time (Source) Location / / Volume Laterality 06/12/2013 10:32 06/12/2013 PM VIDEO GAMES MECHANIC 10:32 PM VIDEO GAMES MECHANIC Narrative [facility] - 06/12/2013 10:54 PM VIDEO GAMES MECHANIC [place] Historical Provider LAB BLOOD ADD-ON Performing Organization Address City/State/ZIP Code Phon e Number [facility] [facility] - [address] [address] 05 [facility] (ABNORMAL) Potassium, Blood (06/12/2013 10:32 PM VIDEO GAMES MECHANIC) Analysis Performed At Patho logist Time Signature Potassium, B 6.2 (>) 3.6 - 5.2 [facility] MMOL/L [facility] Comment: [place] Specimen Anatomical Collection Method Collection Time Receive d Time (Source) Location / / Volume Laterality 06/12/2013 10:32 06/12/2013 PM VIDEO GAMES MECHANIC 10:32 PM VIDEO GAMES MECHANIC Narrative [facility] - 06/12/2013 10:38 PM VIDEO GAMES MECHANIC [place] Historical Provider LAB BLOOD NON ADD-ON Performing Organization Address City/[facility]/ZIP Code Phon e Number [facility] LABORATORIES - [address] [place], [place] [address] [facility] (ABNORMAL) Thromboelastograph, Kaolin, Blood (06/12/2013 10:32 PM VIDEO GAMES MECHANIC) P athologist Signature R Time 6.8 4.0 - 9.0 [facility] MIN [facility] Comment: [place] K Time 10.3 (H) 1.0 - 1.8 MIN [facility] Comment: [place] R + K 17.1 (H) 4.9 - 10.8 MIN [facility] Comment: [place] Angle 30.5 (L) 64.0 - 78.1 [place] [facility] Comment: [place] Maximum Amplitude 24.4 (L) 57.1 - 72.[address] [facility] Comment: [place] Ly30 50.2 (H) 0.0 - 4.8 % [facility] LABORA TORIES [facility] Comment: [place] Specimen Anatomical Collection Method Collection Time Receive d Time (Source) Location / / Volume Laterality 06/12/2013 10:32 06/12/2013 PM VIDEO GAMES MECHANIC 10:32 PM VIDEO GAMES MECHANIC Narrative [facility] - 06/13/2013 12:02 AM VIDEO GAMES MECHANIC [place] Historical Provider LAB BLOOD NON ADD-ON Performing Organization Address City/[facility] Phon e Number [facility]IES - [address] [place], [place] [address] [facility] (ABNORMAL) Sodium (06/12/2013 10:32 PM VIDEO GAMES MECHANIC) athologist Signature Sodium, B 131 (L) 135 - 145 [facility] MMOL/L [facility] Comment: [place] Specimen Anatomical Collection Method Collection Time Receive d Time (Source) Location / / Volume Laterality 06/12/2013 10:32 06/12/2013 PM VIDEO GAMES MECHANIC 10:32 PM VIDEO GAMES MECHANIC Narrative [facility] - 06/12/2013 10:38 PM VIDEO GAMES MECHANIC [place] Historical Provider LAB BLOOD ADD-ON Performing Organization Address City/[facility] Phon e Number [facility]IES - [address] [address] 05 [facility] Prepare Red Blood Cells (06/12/2013 10:28 PM VIDEO GAMES MECHANIC) Analysis Performed At [facility] logis Time Signature HXRBC # UNITS 4 [facility] TRANSFUSED LABORATORIES [facility] HXRBC UNIT INFO RBC [facility] Comment: Unit Blood Type O Pos Unit Number [id number] Component Type Red Blood Cells - -3 Le ukoreduced Issue Date/Time [id number] Unit Blood Type O Pos Unit Number [id number] Component Type Red Blood Cells - -3 Le ukoreduced Issue Date/Time [id number] Unit Blood Type O Pos Unit Number [id number] Component Type Red Blood Cells - -3 Le ukoreduced Issue Date/Time [id number] Unit Blood Type O Pos Unit Number [id number] Component Type Red Blood Cells - -3 Le ukoreduced Issue Date/Time [id number] Specimen (Source) Anatomical Collection Method Collection Time Re ceived Time Location / / Volume Laterality 06/12/2013 10:28 PM VIDEO GAMES MECHANIC Historical Provider BLOOD BANK PRODUCT ORDERABLE S Performing Organization Address City/[facility]/ZIP Code Phon e Number [facility] [address] [address] 05 [facility] Prepare fresh frozen plasma (06/12/2013 10:28 PM VIDEO GAMES MECHANIC) Analysis Performed At [facility] Signature HXFFP # UNITS 2 [facility] TRANSFUSED LABORATORIES [facility] HXFFP UNIT INFO FFP [facility] Comment: Unit Blood Type O Neg Unit Number [id number] Component Type Thawed PLASMA Issue Date/Time [id number] Unit Blood Type O Pos Unit Number [id number] Component Type Thawed PLASMA Issue Date/Time [id number] Specimen (Source) Anatomical Collection Method Collection Time Re ceived Time Location / / Volume Laterality 06/12/2013 10:28 PM VIDEO GAMES MECHANIC Historical Provider BLOOD BANK PRODUCT ORDERABLE S Performing Organization Address City/[facility]/ZIP Code Phon e Number [facility] LAB[facility]ATORIES [address] [address] 05 [facility] Prepare platelets (06/12/2013 10:28 PM VIDEO GAMES MECHANIC) Patholo gist Method Time Signature HXPLT # UNITS 1 [facility] TRANSFUSED LABORATORIES [facility] HXPLATELETS UNIT PLT [facility] Comment: Unit Blood Type O Pos Unit Number [id number] Component Type Platelets, Apheresis Leuk oreduced, Irradiated, Bag 2 Issue Date/Time Specimen (Source) Anatomical Collection Method Collection Time Re ceived Time Location / / Volume Laterality 06/12/2013 10:28 PM VIDEO GAMES MECHANIC Historical Provider BLOOD BANK PRODUCT ORDERABLE S Performing Organization Address City/[facility]/ZIP [facility] Phon e Number [facility] - [address] [place] [address] [facility] Prepare platelets (06/12/2013 10:20 PM VIDEO GAMES MECHANIC) Patholo gist Method Time Signature HXPLT # UNITS 1 [facility] TRANSFUSED [facility] HXPLATELETS UNIT PLT [facility] Comment: Unit Blood Type O Pos Unit Number [id number] Component Type Platelets, Apheresis Leuk oreduced Irradiated 3rd Container Issue Date/Time Specimen (Source) Anatomical Collection Method Collection Time Re ceived Time Location / / Volume Laterality 06/12/2013 10:20 PM VIDEO GAMES MECHANIC Historical Provider BLOOD BANK PRODUCT ORDERABLE S Performing Organization Address City/[facility] Phon e Number [facility] - [address] Prepare fresh frozen plasma (06/12/2013 10:20 PM VIDEO GAMES MECHANIC) Analysis Performed At Patho logist Time Signature HXFFP # UNITS 6 [facility] TRANSFUSED [facility] HXFFP UNIT INFO [facility]FP [facility] Comment: Unit Blood Type A Neg Unit Number [id number] Component Type Thawed PLASMA Issue Date/Time Unit Blood Type O Neg Unit Number [id number] Component Type Thawed PLASMA Issue Date/Time Unit Blood Type O Neg Unit Number [id number] Component Type Thawed PLASMA Issue Date/Time Unit Blood Type O Pos Unit Number [id number] Component Type Thawed PLASMA Issue Date/Time Unit Blood Type O Neg Unit Number [id number] Component Type Thawed PLASMA Issue Date/Time Unit Blood Type O Pos Unit Number [id number] Component Type Thawed PLASMA Issue Date/Time Specimen (Source) Anatomical Collection Method Collection Time Re ceived Time Location / / Volume Laterality 06/12/2013 10:20 PM VIDEO GAMES MECHANIC Historical Provider BLOOD BANK PRODUCT ORDERABLE S Performing Organization Address [facility] Code Phon e Number [facility] LAB[facility]ATORIES - [address] [place] [address] [facility] Prepare Red Blood Cells (06/12/2013 10:18 PM VIDEO GAMES MECHANIC) Analysis Performed At Path logist Time Signature HXRBC # UNITS 6 [facility] TRANSFUSED [facility] HXRBC UNIT INFO RBC [facility] Comment: Unit Blood Type O Pos Unit Number [id number] Component Type Red Blood Cells - -3 Le ukoreduced Issue Date/Time Unit Blood Type O Pos Unit Number [id number] Component Type Red Blood Cells - -3 Le ukoreduced Issue Date/Time Unit Blood Type O Pos Unit Number [id number] Component Type Red Blood Cells - -3 Le ukoreduced Issue Date/Time Unit Blood Type O Pos Unit Number [id number] Component Type Red Blood Cells - -3 Le ukoreduced Issue Date/Time Unit Blood Type O Pos Unit Number [id number] Component Type Red Blood Cells - -3 Le ukoreduced Issue Date/Time Unit Blood Type O Pos Unit Number [id number] Component Type Red Blood Cells - -3 Le ukoreduced Issue Date/Time Specimen (Source) Anatomical Collection Method Collection Time Re ceived Time Location / / Volume Laterality 06/12/2013 10:18 PM VIDEO GAMES MECHANIC Historical Provider BLOOD BANK PRODUCT ORDERABLE S Performing Organization Address City/[facility]/ZIP Code Phon e Number [facility]IES - [address] [address] [facility] (ABNORMAL) PT (Prothrombin Time) with INR (06/12/2013 10:12 PM VIDEO GAMES MECHANIC) Patholo gist Method Time Signature Prothrombin 26.3 (H) 9.5 - [facility] Time, P 13.8 SEC [facility] Comment: [place] INR 2.4 0.8 - 1.2 [facility] LABORATO RASHEEDA - [facility] Comment: [place] Specimen Anatomical Collection Method Collection Time Receive d Time (Source) Location / / Volume Laterality 06/12/2013 10:12 06/12/2013 PM VIDEO GAMES MECHANIC 10:12 PM VIDEO GAMES MECHANIC Narrative [facility] - 06/12/2013 10:35 PM VIDEO GAMES MECHANIC [place] Historical Provider LAB BLOOD ADD-ON Performing Organization Address City/State/ZIP Code Phon e Number [facility] LAB[facility]ATORIES - [address] [place], [place] [address] [facility] (ABNORMAL) Fibrinogen (06/12/2013 10:12 PM VIDEO GAMES MECHANIC) Analysis Performed At Patho logist Time Signature Fibrinogen, P 74 (L) 200 - 375 [facility] MG/DL [facility] Comment: [place] Specimen Anatomical Collection Method Collection Time Receive d Time (Source) Location / / Volume Laterality 06/12/2013 10:12 06/12/2013 PM VIDEO GAMES MECHANIC 10:12 PM VIDEO GAMES MECHANIC Narrative [facility] - 06/12/2013 10:35 PM VIDEO GAMES MECHANIC [place]wn [place] Historical Provider LAB BLOOD ADD-ON Performing Organization Address City/State/ZIP Code Phon e Number [facility] LABORATORIES - [address] [address] [facility] Potassium, Blood (06/12/2013 10:12 PM VIDEO GAMES MECHANIC) P athologist Signature Potassium, B 5.1 3.6 - 5.2 [facility] MMOL/L [facility] - [facility] Comment: [place] Specimen Anatomical Collection Method Collection Time Receive d Time (Source) Location / / Volume Laterality 06/12/2013 10:12 06/12/2013 PM VIDEO GAMES MECHANIC 10:12 PM VIDEO GAMES MECHANIC Narrative [facility] - 06/12/2013 10:15 PM VIDEO GAMES MECHANIC [place] Historical Provider LAB BLOOD NON ADD-ON Performing Organization Address City/State/ZIP Code Phon e Number [facility]ATORIES - [address] [address] [facility] (ABNORMAL) Calcium, Ionized (06/12/2013 10:12 PM VIDEO GAMES MECHANIC) Patholo gist Method Time Signature Calcium, 4.35 (L) 4.65 - [facility] Ionized, B 5.30 LABORATORIES - MG/DL [facility] Comment: [place] Specimen Anatomical Collection Method Collection Time Receive d Time (Source) Location / / Volume Laterality 06/12/2013 10:12 06/12/2013 PM VIDEO GAMES MECHANIC 10:12 PM VIDEO GAMES MECHANIC Narrative [facility] - 06/12/2013 10:15 PM VIDEO GAMES MECHANIC [place] Historical Provider LAB BLOOD NON ADD-ON Performing Organization Address City/[facility]/ZIP Code Phon e Number [facility] - [address] [place], [place] [address] [facility] (ABNORMAL) Blood Gas with Coox, Arterial (06/12/2013 10:12 PM VIDEO GAMES MECHANIC) athologist Signature pO2 191 (H) 80 - 100 [facility] MM HG [facility] Comment: [place] pCO2 31 (L) 35 - 45 MM HG [facility] Comment: [place] HCO3 11 (L) 22 - 26 MMOL/L [facility] Comment: [place] Hb 9.4 (L) 13.5 - 17.5 G/DL [facility] Comment: [place] O2Hb 97.8 94.0 - 98.0 % [facility] Comment: [place] COHb 1.0 <3.0 % [facility] Comment: [place] pH 7.15 (L) 7.35 - 7.45 PH [facility] Comment: [place]wn [place] Base Excess -18 (L) -2 - 2 MMOL/L [facility] Comment: [place] MetHb <1.0 <1.6 % [facility] Comment: [place] CtO2 13.4 (L) 21.0 - 23.0 VOL % [facility] Comment: [place] Specimen Anatomical Collection Method Collection Time Receive d Time (Source) Location / / Volume Laterality 06/12/2013 10:12 06/12/2013 PM VIDEO GAMES MECHANIC 10:12 PM VIDEO GAMES MECHANIC Narrative [facility] - 06/12/2013 10:15 PM VIDEO GAMES MECHANIC [place] Historical Provider LAB BLOOD NON ADD-ON Performing Organization Address City/[facility] Code Phon e Number [facility] LABORATORIES - [address] [address] [facility] (ABNORMAL) Thromboelastograph, Kaolin, Blood (06/12/2013 10:12 PM VIDEO GAMES MECHANIC) P athologist Signature R Time 7.6 4.0 - 9.0 [facility] Comment: [place] K Time 4.1 (H) 1.0 - 1.8 MIN [facility] LABO RATORIES [facility] Comment: [place] Maximum Amplitude 37.5 (L) 57.1 - 72.[address] [facility] Comment: [place] Ly30 0.1 0.0 - 4.8 % [facility] LABORA TORIES [facility] Comment: [place] R + K 11.7 (H) 4.9 - 10.8 [facility] Comment: [place] Angle 51.5 (L) 64.0 - 78.1 [facility] Comment: [place] Specimen Anatomical Collection Method Collection Time Receive d Time (Source) Location / / Volume Laterality 06/12/2013 10:12 06/12/2013 PM VIDEO GAMES MECHANIC 10:12 PM VIDEO GAMES MECHANIC Narrative [facility] - 06/12/2013 11:15 PM VIDEO GAMES MECHANIC [place] Historical Provider LAB BLOOD NON ADD-ON Performing Organization Address City/[facility]/ZIP Code Phon e Number [facility] - [address] [address] [facility] (ABNORMAL) APTT (Activated Partial Thromboplastin Time) (06/12/2013 10:12 PM VIDEO GAMES MECHANIC) P athologist Signature APTT, P 91 (H) 28 - 38 SEC [facility] Comment: [place] Specimen Anatomical Collection Method Collection Time Receive d Time (Source) Location / / Volume Laterality 06/12/2013 10:12 06/12/2013 PM VIDEO GAMES MECHANIC 10:12 PM VIDEO GAMES MECHANIC Narrative [facility] - 06/12/2013 10:35 PM VIDEO GAMES MECHANIC [place] Historical Provider LAB BLOOD ADD-ON Performing Organization Address City/State/ZIP Code Phon e Number [facility] LABORATORIES - [address] [address] [facility] (ABNORMAL) Glucose, Whole Blood (06/12/2013 10:12 PM VIDEO GAMES MECHANIC) P athologist Signature Glucose, S 182 (H) 70 - 140 [facility] MG/DL [facility] Comment: [place] Specimen Anatomical Collection Method Collection Time Receive d Time (Source) Location / / Volume Laterality 06/12/2013 10:12 06/12/2013 PM VIDEO GAMES MECHANIC 10:12 PM VIDEO GAMES MECHANIC Narrative [facility] - 06/12/2013 10:15 PM VIDEO GAMES MECHANIC [place] Historical Provider LAB BLOOD TROPONIN Performing Organization Address City/[facility] Code Phon e Number [facility] - [address] [address] [facility] (ABNORMAL) Sodium (06/12/2013 10:12 PM VIDEO GAMES MECHANIC) P athologist Signature Sodium, B 132 (L) 135 - 145 [facility] MMOL/L [facility] Comment: [place] Specimen Anatomical Collection Method Collection Time Receive d Time (Source) Location / / Volume Laterality 06/12/2013 10:12 06/12/2013 PM VIDEO GAMES MECHANIC 10:12 PM VIDEO GAMES MECHANIC Narrative [facility] - 06/12/2013 10:15 PM VIDEO GAMES MECHANIC [place] Historical Provider LAB BLOOD ADD-ON Performing Organization Address City/[facility]/ZIP Code Phon e Number [facility] LABORATORIES - [address] [address] [facility] (ABNORMAL) Platelet Count (06/12/2013 10:12 PM VIDEO GAMES MECHANIC) Analysis Performed At Patho logist Time Signature Platelet Count 27 (<) 150 - 450 [facility] X10(9)/L [facility] Comment: [place] Specimen Anatomical Collection Method Collection Time Receive d Time (Source) Location / / Volume Laterality 06/12/2013 10:12 06/12/2013 PM VIDEO GAMES MECHANIC 10:12 PM VIDEO GAMES MECHANIC Narrative [facility] - 06/12/2013 10:24 PM VIDEO GAMES MECHANIC [place] Historical Provider LAB BLOOD ADD-ON Performing Organization Address City/[facility]/ZIP Code Phon e Number [facility] LABORATORIES - [address] [address] [facility] Prepare Red Blood Cells (06/12/2013 10:11 PM VIDEO GAMES MECHANIC) Analysis Performed At Patho logis Time Signature HXRBC # UNITS 6 [facility] TRANSFUSED LABORATORIES [facility] HXRBC UNIT INFO RBC [facility] Comment: Unit Blood Type O Pos Unit Number [id number] Component Type Red Blood Cells - -3 Le ukoreduced Issue Date/Time Unit Blood Type O Pos Unit Number [id number] Component Type Red Blood Cells - -3 Le ukoreduced Issue Date/Time Unit Blood Type O Pos Unit Number [id number] Component Type Red Blood Cells - -3 Le ukoreduced Issue Date/Time Unit Blood Type O Pos Unit Number [id number] Component Type Red Blood Cells - -3 Le ukoreduced Issue Date/Time Unit Blood Type O Pos Unit Number [id number] Component Type Red Blood Cells - -3 Le ukoreduced Issue Date/Time [id number] Unit Blood Type O Pos Unit Number [id number] Component Type Red Blood Cells - -3 Le ukoreduced Issue Date/Time Specimen (Source) Anatomical Collection Method Collection Time Re ceived Time Location / / Volume Laterality 06/12/2013 10:11 PM VIDEO GAMES MECHANIC Historical Provider BLOOD BANK PRODUCT ORDERABLE S Performing Organization Address City/State/[facility] Code Phon e Number [facility] - [address] Prepare Red Blood Cells (06/12/2013 10:04 PM VIDEO GAMES MECHANIC) [facility] Time Signature HXRBC # UNITS 6 [facility] TRANSFUSED LABORATORIES [facility] HXRBC UNIT INFO RBC [facility] Comment: Unit Blood Type O Pos Unit Number [id number] Component Type Red Blood Cells - -3 Le ukoreduced Issue Date/Time Unit Blood Type O Pos Unit Number [id number] Component Type Red Blood Cells - -3 Le ukoreduced Issue Date/Time Unit Blood Type O Pos Unit Number [id number] Component Type Red Blood Cells - -3 Le ukoreduced Issue Date/Time Unit Blood Type O Pos Unit Number [id number] Component Type Red Blood Cells - -3 Le ukoreduced Issue Date/Time [id number] Unit Blood Type O Pos Unit Number [id number] Component Type Red Blood Cells - -3 Le ukoreduced Issue Date/Time [id number] Unit Blood Type O Pos Unit Number [id number] Component Type Red Blood Cells - -3 Le ukoreduced Issue Date/Time [id number] Specimen (Source) Anatomical Collection Method Collection Time Re ceived Time Location / / Volume Laterality 06/12/2013 10:04 PM VIDEO GAMES MECHANIC Historical Provider BLOOD BANK PRODUCT ORDERABLE S Performing Organization Address City/State/ZIP Code Phon e Number [facility] - [address] [place], [place] [address] [facility] Microbiology Reports (06/12/2013 9:58 PM VIDEO GAMES MECHANIC) Specimen Anatomical Collection Method Collection Time Receive d Time (Source) Location / / Volume Laterality 06/12/2013 9:58 PM 3 7:49 VIDEO GAMES MECHANIC AM VIDEO GAMES MECHANIC Narrative [facility] - 07/07/2013 1:09 PM VIDEO GAMES MECHANIC 12-JUN-2013 LIVER BIOPSY, TISSUE ? SoftOrd# [id number] ?(Ordered 13-JUN-2013; Collec onel 12-JUN-2013 21:58; Received 13-JUN-2013 07:48) ?[facility] ?Viral Culture: Examine for C [...] 10/01/2017 12-JUN-2013 LIVER BIOPSY, TISSUE SoftOr d# [id number] (Ordered 13-JUN-2013; Collected 2012 21:58; Received 13-JUN-2013 07:48) [facility] Viral Culture: Examine for Cytomegalovi ilsa FUNGAL [...] - GENERAL O RDERABLES Performing Organization Address City/[facility]/ZIP Code Phon e Number [facility] - [address] [place], [place] [address] [facility] (ABNORMAL) PT (Prothrombin Time) with INR (06/12/2013 9:56 PM VIDEO GAMES MECHANIC) [facility] gist Method Time Signature Prothrombin 23.8 (H) 9.5 - [facility] Time, P 13.8 SEC [facility] INR 2.2 0.8 - 1.2 [facility] Specimen Anatomical Collection Method Collection Time Receive d Time (Source) Location / / Volume Laterality 06/12/2013 9:56 PM 3 9:56 VIDEO GAMES MECHANIC PM VIDEO GAMES MECHANIC Historical Provider LAB BLOOD ADD-ON Performing Organization Address City/State/ZIP Code Phon e Number [facility] LABORATORIES - [address] [place], [place] [address] [facility] (ABNORMAL) Calcium, Ionized (06/12/2013 9:56 PM VIDEO GAMES MECHANIC) [facility] gist Method Time Signature Calcium, 3.10 (L) 4.65 - [facility] Ionized, B 5.30 LABORATORIES - MG/DL [facility] Specimen Anatomical Collection Method Collection Time Receive d Time (Source) Location / / Volume Laterality 06/12/2013 9:56 PM 3 9:56 VIDEO GAMES MECHANIC PM VIDEO GAMES MECHANIC Historical Provider LAB BLOOD NON ADD-ON Performing Organization Address City/State/ZIP Code Phon e Number [facility] LABORATORIES - [address] [place], [place] [address] [facility] (ABNORMAL) APTT (Activated Partial Thromboplastin Time) (06/12/2013 9:56 PM VIDEO GAMES MECHANIC) P athologist Signature APTT, P 73 (H) 28 - 38 SEC [facility] Specimen Anatomical Collection Method Collection Time Receive d Time (Source) Location / / Volume Laterality 06/12/2013 9:56 PM 3 9:56 VIDEO GAMES MECHANIC PM VIDEO GAMES MECHANIC Historical Provider LAB BLOOD ADD-ON Performing Organization Address City/State/ZIP Code Phon e Number [facility] LABORATORIES - [address] [place] [address] [facility] (ABNORMAL) Platelet Count (06/12/2013 9:56 PM VIDEO GAMES MECHANIC) Analysis Performed At Patho logist Time Signature Platelet Count 53 (L) 150 - 450 [facility] X10(9)/L [facility] Specimen Anatomical Collection Method Collection Time Receive d Time (Source) Location / / Volume Laterality 06/12/2013 9:56 PM 3 9:56 VIDEO GAMES MECHANIC PM VIDEO GAMES MECHANIC Historical Provider LAB BLOOD ADD-ON Performing Organization Address City/State/ZIP Code Phon e Number [facility]IES - [address] [place] [phone] [facility] (ABNORMAL) Fibrinogen (06/12/2013 9:56 PM VIDEO GAMES MECHANIC) [facility] Method Time Signature Fibrinogen, P 102 (L) 200 - 375 [facility] MG/DL LABORATORIES [facility] Specimen Anatomical Collection Method Collection Time Receive d Time (Source) Location / / Volume Laterality 06/12/2013 9:56 PM 3 9:56 VIDEO GAMES MECHANIC PM VIDEO GAMES MECHANIC Historical Provider LAB BLOOD ADD-ON Performing Organization Address City/[facility]/ZIP Code Phon e Number [facility] - [address] [phone] 05 [facility] Potassium, Blood (06/12/2013 9:56 PM VIDEO GAMES MECHANIC) P athologist Signature Potassium, B 4.1 3.6 - 5.2 [facility] MMOL/L [facility] Specimen Anatomical Collection Method Collection Time Receive d Time (Source) Location / / Volume Laterality 06/12/2013 9:56 PM 3 9:56 VIDEO GAMES MECHANIC PM VIDEO GAMES MECHANIC Historical Provider LAB BLOOD NON ADD-ON Performing Organization Address City/[facility] Code Phon e Number [facility] - [address] [address] 05 [facility] (ABNORMAL) Glucose, Whole Blood (06/12/2013 9:56 PM VIDEO GAMES MECHANIC) P athologist Signature Glucose, S 185 (H) 70 - 140 [facility] MG/DL [facility] Specimen Anatomical Collection Method Collection Time Receive d Time (Source) Location / / Volume Laterality 06/12/2013 9:56 PM 3 9:56 VIDEO GAMES MECHANIC PM VIDEO GAMES MECHANIC Historical Provider LAB BLOOD TROPONIN Performing Organization Address City/[facility] Code Phon e Number [facility] - [address] [address] 05 [facility] (ABNORMAL) Sodium (06/12/2013 9:56 PM VIDEO GAMES MECHANIC) P athologist Signature Sodium, B 134 (L) 135 - 145 [facility] MMOL/L [facility] Specimen Anatomical Collection Method Collection Time Receive d Time (Source) Location / / Volume Laterality 06/12/2013 9:56 PM 3 9:56 VIDEO GAMES MECHANIC PM VIDEO GAMES MECHANIC Historical Provider LAB BLOOD ADD-ON Performing Organization Address City/[facility] Phon e Number [facility] - [address] [phone] 05 [facility] (ABNORMAL) Thromboelastograph, Kaolin, Blood (06/12/2013 9:56 PM VIDEO GAMES MECHANIC) Patholo gist Method Time Signature R Time 5.9 4.0 - 9.0 [facility] MIN [facility] K Time 1.8 1.0 - 1.8 [facility] MIN [facility] R + K 7.7 4.9 - 10.8 [facility] MIN [facility] Angle 66.3 64.0 - 78.1 [facility] DEGREES [facility] Maximum 47.0 (L) 57.1 - 72.6 [facility] Amplitude MM [facility] Ly30 4.1 0.0 - 4.8 % [facility] Specimen Anatomical Collection Method Collection Time Receive d Time (Source) Location / / Volume Laterality 06/12/2013 9:56 PM 3 9:56 VIDEO GAMES MECHANIC PM VIDEO GAMES MECHANIC Historical Provider LAB BLOOD NON ADD-ON Performing Organization Address City/[facility] Phon e Number [facility] - [address] (ABNORMAL) Blood Gas with Coox, Arterial (06/12/2013 9:56 PM VIDEO GAMES MECHANIC) Analysis Performed At Patho logist Time Signature pH 7.24 (L) 7.35 - [facility] 7.45 PH [facility] Base Excess -14 (L) -2 - 2 [facility] MMOL/L [facility] pO2 195 (H) 80 - 100 [facility] MM HG [facility] pCO2 33 (L) 35 - 45 MM [facility] HG [facility] HCO3 14 (L) 22 - 26 [facility] MMOL/L [facility] Hb 6.9 (L) 13.5 - [facility] 17.5 G/DL [facility] O2Hb 98.0 94.0 - [facility] 98.0 % [facility] COHb 1.0 <3.0 % [facility] MetHb <1.0 <1.6 % [facility] CtO2 10.1 (L) 21.0 - [facility] 23.0 VOL % [facility] Specimen Anatomical Collection Method Collection Time Receive d Time (Source) Location / / Volume Laterality 06/12/2013 9:56 PM 3 9:56 VIDEO GAMES MECHANIC PM VIDEO GAMES MECHANIC Historical Provider LAB BLOOD NON ADD-ON Performing Organization Address City/[facility] Phon e Number [facility] - [address] Prepare fresh frozen plasma (06/12/2013 9:50 PM VIDEO GAMES MECHANIC) Analysis Performed At Patho logis Time Signature HXFFP # UNITS 4 [facility] TRANSFUSED [facility] HXFFP UNIT INFO FFP [facility] Comment: Unit Blood Type O Pos Unit Number [id number] Component Type Thawed PLASMA Issue Date/Time [id number] Unit Blood Type O Pos Unit Number [id number] Component Type Thawed PLASMA Issue Date/Time Unit Blood Type O Neg Unit Number [id number] Component Type Thawed PLASMA Issue Date/Time Unit Blood Type O Pos Unit Number [id number] Component Type Thawed PLASMA Issue Date/Time [id number] Specimen (Source) Anatomical Collection Method Collection Time Re ceived Time Location / / Volume Laterality 06/12/2013 9:50 PM VIDEO GAMES MECHANIC Historical Provider BLOOD BANK PRODUCT ORDERABLE S Performing Organization Address City/[facility]/ZIP [facility] Phon e Number [facility] [address] Prepare Red Blood Cells (06/12/2013 9:50 PM VIDEO GAMES MECHANIC) Analysis Performed At Path logis Time Signature HXRBC # UNITS 4 [facility] TRANSFUSED [facility] HXRBC UNIT INFO RBC [facility] Comment: Unit Blood Type O Pos Unit Number [id number] Component Type Red Blood Cells - -3 Le ukoreduced Issue Date/Time [id number] Unit Blood Type O Pos Unit Number [id number] Component Type Red Blood Cells - -3 Le ukoreduced Issue Date/Time [id number] Unit Blood Type O Pos Unit Number [id number] Component Type Red Blood Cells - -3 Le ukoreduced Issue Date/Time [id number] Unit Blood Type O Pos Unit Number [id number] Component Type Red Blood Cells - -3 Le ukoreduced Issue Date/Time [id number] Specimen (Source) Anatomical Collection Method Collection Time Re ceived Time Location / / Volume Laterality 06/12/2013 9:50 PM VIDEO GAMES MECHANIC Historical Provider BLOOD BANK PRODUCT ORDERABLE S Performing Organization Address City/[facility]/ZIP Code Phon e Number [facility] - [address] [place], [place] [address] 05 [facility] Prepare Red Blood Cells (06/12/2013 9:38 PM VIDEO GAMES MECHANIC) Analysis Performed At Patho logist Time Signature HXRBC # UNITS 6 [facility] TRANSFUSED LABORATORIES [facility] HXRBC UNIT INFO RBC [facility] Comment: Unit Blood Type O Pos Unit Number [id number] Component Type Red Blood Cells - -1 Le ukoreduced Issue Date/Time [id number] Unit Blood Type O Pos Unit Number [id number] Component Type Red Blood Cells - -1 Le ukoreduced Issue Date/Time [id number] Unit Blood Type O Pos Unit Number [id number] Component Type Red Blood Cells - -1 Le ukoreduced Issue Date/Time [id number] Unit Blood Type O Pos Unit Number [id number] Component Type Red Blood Cells - -1 Le ukoreduced Issue Date/Time [id number] Unit Blood Type O Pos Unit Number [id number] Component Type Red Blood Cells - -3 Le ukoreduced Issue Date/Time [id number] Unit Blood Type O Pos Unit Number [id number] Component Type Red Blood Cells - -3 Le ukoreduced Issue Date/Time [id number] Specimen (Source) Anatomical Collection Method Collection Time Re ceived Time Location / / Volume Laterality 06/12/2013 9:38 PM VIDEO GAMES MECHANIC Historical Provider BLOOD BANK PRODUCT ORDERABLE S Performing Organization Address City/State/ZIP Code Phon e Number [facility] - [address] (ABNORMAL) Fibrinogen (06/12/2013 9:24 PM VIDEO GAMES MECHANIC) Patholo gist Method Time Signature Fibrinogen, P 105 (L) 200 - 375 [facility] MG/DL [facility] Comment: [place] Specimen Anatomical Collection Method Collection Time Receive d Time (Source) Location / / Volume Laterality 06/12/2013 9:24 PM 3 9:24 VIDEO GAMES MECHANIC PM VIDEO GAMES MECHANIC Narrative [facility] - 06/12/2013 9:45 PM VIDEO GAMES MECHANIC [place] Historical Provider LAB BLOOD ADD-ON Performing Organization Address City/State/ZIP Code Phon e Number [facility] - [address] [address] 05 [facility] Potassium, Blood (06/12/2013 9:24 PM VIDEO GAMES MECHANIC) athologist Signature Potassium, B 3.9 3.6 - 5.2 [facility] MMOL/L [facility] Comment: [place] Specimen Anatomical Collection Method Collection Time Receive d Time (Source) Location / / Volume Laterality 06/12/2013 9:24 PM 3 9:24 VIDEO GAMES MECHANIC PM VIDEO GAMES MECHANIC Narrative [facility] - 06/12/2013 9:33 PM VIDEO GAMES MECHANIC [place] Historical Provider LAB BLOOD NON ADD-ON Performing Organization Address City/State/ZIP Code Phon e Number [facility] - [address] [address] 05 [facility] (ABNORMAL) Blood Gas with Coox, Arterial (06/12/2013 9:24 PM VIDEO GAMES MECHANIC) athologist Signature pO2 185 (H) 80 - 100 [facility] MM HG [facility] Comment: [place] pCO2 34 (L) 35 - 45 MM HG [facility] Comment: [place] HCO3 14 (L) 22 - 26 MMOL/L [facility] Comment: [place] Hb 6.8 (L) 13.5 - 17.5 G/DL [facility] Comment: [place] O2Hb 97.7 94.0 - 98.0 % [facility] Comment: [place] COHb 1.0 <3.0 % [facility] Comment: [place] MetHb 1.1 <1.6 % [facility] Comment: [place] CtO2 9.8 (L) 21.0 - 23.0 VOL % [facility] Comment: [place] pH 7.24 (L) 7.35 - 7.45 PH [facility] Comment: [place] Base Excess -13 (L) -2 - 2 MMOL/L [facility] Comment: [place] Specimen Anatomical Collection Method Collection Time Receive d Time (Source) Location / / Volume Laterality 06/12/2013 9:24 PM 3 9:24 VIDEO GAMES MECHANIC PM VIDEO GAMES MECHANIC Narrative [facility] - 06/12/2013 9:33 PM VIDEO GAMES MECHANIC [place] Historical Provider LAB BLOOD NON ADD-ON Performing Organization Address City/State/ZIP [facility] Phon e Number [facility] - [address] [place], [place] [address] [facility] Calcium, Ionized (06/12/2013 9:24 PM VIDEO GAMES MECHANIC) athologist Signature Calcium, 5.03 4.65 - [facility] Ionized, B 5.30 MG/DL [facility] Comment: [place] Specimen Anatomical Collection Method Collection Time Receive d Time (Source) Location / / Volume Laterality 06/12/2013 9:24 PM 3 9:24 VIDEO GAMES MECHANIC PM VIDEO GAMES MECHANIC Narrative [facility] - 06/12/2013 9:33 PM VIDEO GAMES MECHANIC [place] Historical Provider LAB BLOOD NON ADD-ON Performing Organization Address City/State/[facility] Code Phon e Number [facility] - [address] [phone] 05 [facility] Thromboelastograph, Kaolin, Blood (06/12/2013 9:24 PM VIDEO GAMES MECHANIC) athologist Signature R + K 5.5 4.9 - 10.8 [facility] Comment: [place] Angle 73.4 64.0 - 78.1 DEGREES [facility] Comment: [place] Maximum Amplitude 58.6 57.1 - 72.[address] [facility] Comment: [place] Ly30 0.0 0.0 - 4.8 % [facility] LABORA TORIES [facility] Comment: [place] R Time 4.4 4.0 - 9.0 MIN [facility] Comment: [place] K Time 1.1 1.0 - 1.8 MIN [facility] Comment: [place] Specimen Anatomical Collection Method Collection Time Receive d Time (Source) Location / / Volume Laterality 06/12/2013 9:24 PM 3 9:24 VIDEO GAMES MECHANIC PM VIDEO GAMES MECHANIC Narrative [facility] - 06/12/2013 10:18 PM VIDEO GAMES MECHANIC [place] Historical Provider LAB BLOOD NON ADD-ON Performing Organization Address City/[facility]/ZIP Code Phon e Number [facility] - [address] [phone] 05 [facility] Glucose, Whole Blood (06/12/2013 9:24 PM VIDEO GAMES MECHANIC) P athologist Signature Glucose, S 137 70 - 140 [facility] MG/DL [facility] Comment: [place] Specimen Anatomical Collection Method Collection Time Receive d Time (Source) Location / / Volume Laterality 06/12/2013 9:24 PM 3 9:24 VIDEO GAMES MECHANIC PM VIDEO GAMES MECHANIC Narrative [facility] - 06/12/2013 9:33 PM VIDEO GAMES MECHANIC [place] Historical Provider LAB BLOOD TROPONIN Performing Organization Address City/[facility]/ZIP Code Phon e Number [facility] - [address] [phone] 05 [facility] (ABNORMAL) Sodium (06/12/2013 9:24 PM VIDEO GAMES MECHANIC) athologist Signature Sodium, B 131 (L) 135 - 145 [facility] MMOL/L [facility] Comment: [place] Specimen Anatomical Collection Method Collection Time Receive d Time (Source) Location / / Volume Laterality 06/12/2013 9:24 PM 3 9:24 VIDEO GAMES MECHANIC PM VIDEO GAMES MECHANIC Narrative [facility] - 06/12/2013 9:33 PM VIDEO GAMES MECHANIC [place] Historical Provider LAB BLOOD ADD-ON Performing Organization Address City/[facility]/ZIP Code Phon e Number [facility] - [address] [address] 05 [facility] (ABNORMAL) PT (Prothrombin Time) with INR (06/12/2013 9:24 PM VIDEO GAMES MECHANIC) Patholo gist Method Time Signature Prothrombin 24.7 (H) 9.5 - [facility] Time, P 13.8 SEC [facility] Comment: [place] INR 2.3 0.8 - 1.2 [facility] LABORATO RASHEEDA - [facility] Comment: [place] Specimen Anatomical Collection Method Collection Time Receive d Time (Source) Location / / Volume Laterality 06/12/2013 9:24 PM 3 9:24 VIDEO GAMES MECHANIC PM VIDEO GAMES MECHANIC Narrative [facility] - 06/12/2013 9:45 PM VIDEO GAMES MECHANIC [place] Historical Provider LAB BLOOD ADD-ON Performing Organization Address City/[facility]/ZIP Code Phon e Number [facility] - [address] [phone] 05 [facility] (ABNORMAL) Platelet Count (06/12/2013 9:24 PM VIDEO GAMES MECHANIC) Analysis Performed At Patho logist Time Signature Platelet Count 97 (L) 150 - 450 [facility] X10(9)/L [facility] Comment: [place] Specimen Anatomical Collection Method Collection Time Receive d Time (Source) Location / / Volume Laterality 06/12/2013 9:24 PM 3 9:24 VIDEO GAMES MECHANIC PM VIDEO GAMES MECHANIC Narrative [facility] - 06/12/2013 9:31 PM VIDEO GAMES MECHANIC [place] Historical Provider LAB BLOOD ADD-ON Performing Organization Address City/[facility]/ZIP Code Phon e Number [facility] - [address] [phone] 05 [facility] (ABNORMAL) APTT (Activated Partial Thromboplastin Time) (06/12/2013 9:24 PM VIDEO GAMES MECHANIC) P athologist Signature APTT, P 64 (H) 28 - 38 SEC [facility] Comment: [place] Specimen Anatomical Collection Method Collection Time Receive d Time (Source) Location / / Volume Laterality 06/12/2013 9:24 PM 3 9:24 VIDEO GAMES MECHANIC PM VIDEO GAMES MECHANIC Narrative [facility] - 06/12/2013 9:45 PM VIDEO GAMES MECHANIC [place] Historical Provider LAB BLOOD ADD-ON Performing Organization Address City/[facility] Code Phon e Number [facility] - [address] [phone] 05 [facility] (ABNORMAL) Fibrinogen (06/12/2013 8:53 PM VIDEO GAMES MECHANIC) Patholo gist Method Time Signature Fibrinogen, P 155 (L) 200 - 375 [facility] MG/DL [facility] Comment: [place] Specimen Anatomical Collection Method Collection Time Receive d Time (Source) Location / / Volume Laterality 06/12/2013 8:53 PM 3 8:53 VIDEO GAMES MECHANIC PM VIDEO GAMES MECHANIC Narrative [facility] - 06/12/2013 9:14 PM VIDEO GAMES MECHANIC [place] Historical Provider LAB BLOOD ADD-ON Performing Organization Address City/[facility]/ZIP Code Phon e Number [facility] - [address] [address] 05 [facility] (ABNORMAL) Platelet Count (06/12/2013 8:53 PM VIDEO GAMES MECHANIC) Analysis Performed At Patho logist Time Signature Platelet Count 87 (L) 150 - 450 [facility] X10(9)/L [facility] Comment: [place] Specimen Anatomical Collection Method Collection Time Receive d Time (Source) Location / / Volume Laterality 06/12/2013 8:53 PM 3 8:53 VIDEO GAMES MECHANIC PM VIDEO GAMES MECHANIC Narrative [facility] - 06/12/2013 9:01 PM VIDEO GAMES MECHANIC [place] Historical Provider LAB BLOOD ADD-ON Performing Organization Address City/[facility]/ZIP Code Phon e Number [facility] - [address] [phone] 05 [facility] (ABNORMAL) APTT (Activated Partial Thromboplastin Time) (06/12/2013 8:53 PM VIDEO GAMES MECHANIC) P athologist Signature APTT, P 46 (H) 28 - 38 SEC [facility] Comment: [place] Specimen Anatomical Collection Method Collection Time Receive d Time (Source) Location / / Volume Laterality 06/12/2013 8:53 PM 3 8:53 VIDEO GAMES MECHANIC PM VIDEO GAMES MECHANIC Narrative [facility] - 06/12/2013 9:14 PM VIDEO GAMES MECHANIC [place] Historical Provider LAB BLOOD ADD-ON Performing Organization Address City/[facility]/ZIP Code Phon e Number [facility] [address] [phone] 05 [facility] Thromboelastograph, Kaolin, Blood (06/12/2013 8:53 PM VIDEO GAMES MECHANIC) P athologist Signature R + K 5.6 4.9 - 10.8 [facility] Comment: [place] Angle 71.1 64.0 - 78.1 DEGREES [facility] Comment: [place] R Time 4.3 4.0 - 9.0 MIN [facility] Comment: [place] K Time 1.3 1.0 - 1.8 [facility] Comment: [place] Maximum Amplitude 60.5 57.1 - 72.[address] [facility] Comment: [place] Ly30 0.0 0.0 - 4.8 % [facility] LABORA TORIES [facility] Comment: [place] Specimen Anatomical Collection Method Collection Time Receive d Time (Source) Location / / Volume Laterality 06/12/2013 8:53 PM 3 8:53 VIDEO GAMES MECHANIC PM VIDEO GAMES MECHANIC Narrative [facility] - 06/12/2013 10:02 PM VIDEO GAMES MECHANIC [place] Historical Provider LAB BLOOD NON ADD-ON Performing Organization Address City/[facility] Code Phon e Number [facility] - [address] [phone] 05 [facility] Calcium, Ionized (06/12/2013 8:53 PM VIDEO GAMES MECHANIC) P athologist Signature Calcium, 5.04 4.65 - [facility] Ionized, B 5.30 MG/DL [facility] Comment: [place] Specimen Anatomical Collection Method Collection Time Receive d Time (Source) Location / / Volume Laterality 06/12/2013 8:53 PM 3 8:53 VIDEO GAMES MECHANIC PM VIDEO GAMES MECHANIC Narrative [facility] - 06/12/2013 8:57 PM VIDEO GAMES MECHANIC [place] Historical Provider LAB BLOOD NON ADD-ON Performing Organization Address City/State/ZIP Code Phon e Number [facility] - [address] [address] 05 [facility] (ABNORMAL) PT (Prothrombin Time) with INR (06/12/2013 8:53 PM VIDEO GAMES MECHANIC) Patholo gist Method Time Signature Prothrombin 20.9 (H) 9.5 - [facility] Time, P 13.8 SEC [facility] Comment: [place] INR 1.9 0.8 - 1.2 [facility] LABORATO RASHEEDA [facility] Comment: [place] Specimen Anatomical Collection Method Collection Time Receive d Time (Source) Location / / Volume Laterality 06/12/2013 8:53 PM 3 8:53 VIDEO GAMES MECHANIC PM VIDEO GAMES MECHANIC Narrative [facility] - 06/12/2013 9:14 PM VIDEO GAMES MECHANIC [place] Historical Provider LAB BLOOD ADD-ON Performing Organization Address City/[facility]/ZIP Code Phon e Number [facility] - [address] [phone] [facility] (ABNORMAL) Blood Gas with Coox, Arterial (06/12/2013 8:53 PM VIDEO GAMES MECHANIC) athologist Signature pH 7.30 (L) 7.35 - [facility] 7.45 PH [facility] Comment: [place] Base Excess -8 (L) -2 - 2 MMOL/L [facility] Comment: [place] HCO3 18 (L) 22 - 26 MMOL/L [facility] Comment: [place] Hb 7.3 (L) 13.5 - 17.5 G/DL [facility] Comment: [place] O2Hb 98.3 (H) 94.0 - 98.0 % [facility] Comment: [place] COHb 1.0 <3.0 % [facility] Comment: [place] pO2 190 (H) 80 - 100 MM HG [facility] Comment: [place] pCO2 37 35 - 45 MM HG [facility] Comment: [place] MetHb <1.0 <1.6 % [facility] Comment: [place] CtO2 10.5 (L) 21.0 - 23.0 VOL % [facility] Comment: [place] Specimen Anatomical Collection Method Collection Time Receive d Time (Source) Location / / Volume Laterality 06/12/2013 8:53 PM 3 8:53 VIDEO GAMES MECHANIC PM VIDEO GAMES MECHANIC Narrative [facility] - 06/12/2013 8:57 PM VIDEO GAMES MECHANIC [place] Historical Provider LAB BLOOD NON ADD-ON Performing Organization Address City/State/[facility] Code Phon e Number [facility] - [address] [phone] 05 [facility] (ABNORMAL) Sodium (06/12/2013 8:53 PM VIDEO GAMES MECHANIC) athologist Signature Sodium, B 130 (L) 135 - 145 [facility] MMOL/L [facility] Comment: [place] Specimen Anatomical Collection Method Collection Time Receive d Time (Source) Location / / Volume Laterality 06/12/2013 8:53 PM 3 8:53 VIDEO GAMES MECHANIC PM VIDEO GAMES MECHANIC Narrative [facility] - 06/12/2013 8:57 PM VIDEO GAMES MECHANIC [place] Historical Provider LAB BLOOD ADD-ON Performing Organization Address City/[facility]/ZIP Code Phon e Number [facility] - [address] [phone] 05 [facility] Potassium, Blood (06/12/2013 8:53 PM VIDEO GAMES MECHANIC) P athologist Signature Potassium, B 4.1 3.6 - 5.2 [facility] MMOL/L [facility] Comment: Drawn in [place] Specimen Anatomical Collection Method Collection Time Receive d Time (Source) Location / / Volume Laterality 06/12/2013 8:53 PM 3 8:53 VIDEO GAMES MECHANIC PM VIDEO GAMES MECHANIC Narrative [facility] - 06/12/2013 8:57 PM VIDEO GAMES MECHANIC Drawn in [place] Historical Provider LAB BLOOD NON ADD-ON Performing Organization Address City/[facility]/ZIP Code Phon e Number [facility] LABORATORIES - [address] [address] [facility] Glucose, Whole Blood (06/12/2013 8:53 PM VIDEO GAMES MECHANIC) P athologist Signature Glucose, S 131 70 - 140 [facility] MG/DL [facility] Comment: Drawn in [place] Specimen Anatomical Collection Method Collection Time Receive d Time (Source) Location / / Volume Laterality 06/12/2013 8:53 PM 3 8:53 VIDEO GAMES MECHANIC PM VIDEO GAMES MECHANIC Narrative [facility] - 06/12/2013 8:57 PM VIDEO GAMES MECHANIC Drawn in [place] Historical Provider LAB BLOOD TROPONIN Performing Organization Address City/[facility]/ZIP [facility] Phon e Number [facility] - [address] [address] [facility] Prepare cryoprecipitate (06/12/2013 8:49 PM VIDEO GAMES MECHANIC) Analysis Performed At Patho logist Time Signature HXCRYO # UNITS 2 [facility] TRANSFUSED LABORATORIES - [facility] HXCRYO UNIT CRYO [facility] INFO [facility] - [facility] Comment: Unit Blood Type O Pos Unit Number [id number] Component Type Cryoprecipitated AHF - Po oled, Frozen Issue Date/Time Unit Blood Type O Rh Unk Unit Number [id number] Component Type Cryoprecipitated AHF - Po oled, Frozen Issue Date/Time Specimen (Source) Anatomical Collection Method Collection Time Re ceived Time Location / / Volume Laterality 06/12/2013 8:49 PM VIDEO GAMES MECHANIC Historical Provider BLOOD BANK PRODUCT ORDERABLE S Performing Organization Address [facility] Phon e Number [facility] - [address] Prepare platelets (06/12/2013 8:49 PM VIDEO GAMES MECHANIC) Patholo gist Method Time Signature HXPLT # UNITS 1 [facility] TRANSFUSED [facility] HXPLATELETS UNIT PLT [facility] Comment: Unit Blood Type O Neg Unit Number [id number] Component Type Platelets, Apheresis Leuk oreduced, Irradiated, Bag 2 Issue Date/Time Specimen (Source) Anatomical Collection Method Collection Time Re ceived Time Location / / Volume Laterality 06/12/2013 8:49 PM VIDEO GAMES MECHANIC Historical Provider BLOOD BANK PRODUCT ORDERABLE S Performing Organization Address [facility] Phon e Number [facility] - [address] Prepare fresh frozen plasma (06/12/2013 8:49 PM VIDEO GAMES MECHANIC) Analysis Performed At Patho logist Time Signature HXFFP # UNITS 4 [facility] TRANSFUSED [facility] HXFFP UNIT INFO FFP [facility] Comment: Unit Blood Type B Neg Unit Number [id number] Component Type Thawed PLASMA Issue Date/Time Unit Blood Type B Pos Unit Number [id number] Component Type Thawed PLASMA Issue Date/Time Unit Blood Type B Pos Unit Number [id number] Component Type Thawed PLASMA Issue Date/Time Unit Blood Type O Pos Unit Number [id number] Component Type Thawed PLASMA Issue Date/Time [id number] Specimen (Source) Anatomical Collection Method Collection Time Re ceived Time Location / / Volume Laterality 06/12/2013 8:49 PM VIDEO GAMES MECHANIC Historical Provider BLOOD BANK PRODUCT ORDERABLE S Performing Organization Address City/[facility] Phon e Number [facility] LABORATORIES - [address] Prepare Red Blood Cells (06/12/2013 8:48 PM VIDEO GAMES MECHANIC) Analysis Performed At Patho logist Time Signature HXRBC # UNITS 5 [facility] TRANSFUSED LABORATORIES [facility] HXRBC UNIT INFO RBC [facility] Comment: Unit Blood Type O Pos Unit Number [id number] Component Type Red Blood Cells - -1 Le ukoreduced Issue Date/Time Unit Blood Type O Pos Unit Number [id number] Component Type Red Blood Cells - -1 Le ukoreduced Issue Date/Time Unit Blood Type O Pos Unit Number [id number] Component Type Red Blood Cells - -3 Le ukoreduced Issue Date/Time Unit Blood Type O Pos Unit Number [id number] Component Type Red Blood Cells - -3 Le ukoreduced Issue Date/Time Unit Blood Type O Pos Unit Number [id number] Component Type Red Blood Cells - -3 Le ukoreduced Issue Date/Time Specimen (Source) Anatomical Collection Method Collection Time Re ceived Time Location / / Volume Laterality 06/12/2013 8:48 PM VIDEO GAMES MECHANIC Historical Provider BLOOD BANK PRODUCT ORDERABLE S Performing Organization Address City/[facility]/ZIP Code Phon e Number [facility] LABORATORIES - [address] Prepare platelets (06/12/2013 8:00 PM VIDEO GAMES MECHANIC) Patholo gist Method Time Signature HXPLT # UNITS 1 [facility] TRANSFUSED LABORATORIES [facility] HXPLATELETS UNIT PLT [facility] INFO [facility] Comment: Unit Blood Type O Pos Unit Number [id number] Component Type Platelets, Apheresis Leuk oreduced, Irradiated, Bag 1 Issue Date/Time [id number] Specimen (Source) Anatomical Collection Method Collection Time Re ceived Time Location / / Volume Laterality 06/12/2013 8:00 PM VIDEO GAMES MECHANIC Historical Provider BLOOD BANK PRODUCT ORDERABLE S Performing Organization Address City/[facility]/ZIP Code Phon e Number [facility] LABORATORIES - [address] Prepare fresh frozen plasma (06/12/2013 8:00 PM VIDEO GAMES MECHANIC) Analysis Performed At Patho logist Time Signature HXFFP # UNITS 4 [facility] TRANSFUSED [facility] HXFFP UNIT INFO FFP [facility] Comment: Unit Blood Type O Neg Unit Number [id number] Component Type Thawed PLASMA Issue Date/Time Unit Blood Type O Pos Unit Number [id number] Component Type Thawed PLASMA Issue Date/Time Unit Blood Type O Neg Unit Number [id number] Component Type Thawed PLASMA Issue Date/Time Unit Blood Type O Neg Unit Number [id number] Component Type Thawed PLASMA Issue Date/Time Specimen (Source) Anatomical Collection Method Collection Time Re ceived Time Location / / Volume Laterality 06/12/2013 8:00 PM VIDEO GAMES MECHANIC Historical Provider BLOOD BANK PRODUCT ORDERABLE S Performing Organization Address [facility] Phon e Number [facility] LABORATORIES - [address] (ABNORMAL) Calcium, Ionized (06/12/2013 7:48 PM VIDEO GAMES MECHANIC) [facility] Method Time Signature Calcium, 5.61 (H) 4.65 - [facility] Ionized, B 5.30 LABORATORIES - MG/DL [facility] Specimen Anatomical Collection Method Collection Time Receive d Time (Source) Location / / Volume Laterality 06/12/2013 7:48 PM 3 7:48 VIDEO GAMES MECHANIC PM VIDEO GAMES MECHANIC Historical Provider LAB BLOOD NON ADD-ON Performing Organization Address City/[facility] Phon e Number [facility] LABORATORIES - [address] (ABNORMAL) Fibrinogen (06/12/2013 7:48 PM VIDEO GAMES MECHANIC) [facility] Method Time Signature Fibrinogen, P 163 (L) 200 - 375 [facility] MG/DL LABORATORIES - [facility] Specimen Anatomical Collection Method Collection Time Receive d Time (Source) Location / / Volume Laterality 06/12/2013 7:48 PM 3 7:48 VIDEO GAMES MECHANIC PM VIDEO GAMES MECHANIC Historical Provider LAB BLOOD ADD-ON Performing Organization Address City/[facility]/ZIP [facility] Phon e Number [facility] LABORATORIES - [address] [address] [facility] Potassium, Blood (06/12/2013 7:48 PM VIDEO GAMES MECHANIC) P athologist Signature Potassium, B 3.6 3.6 - 5.2 [facility] MMOL/L LABORATORIES [facility] Specimen Anatomical Collection Method Collection Time Receive d Time (Source) Location / / Volume Laterality 06/12/2013 7:48 PM 3 7:48 VIDEO GAMES MECHANIC PM VIDEO GAMES MECHANIC Historical Provider LAB BLOOD NON ADD-ON Performing Organization Address City/[facility] Phon e Number [facility] LABORATORIES - [address] [address] [facility] (ABNORMAL) Platelet Count (06/12/2013 7:48 PM VIDEO GAMES MECHANIC) Analysis Performed At Patho logist Time Signature Platelet Count 85 (L) 150 - 450 [facility] X10(9)/L LABORATORIES [facility] Specimen Anatomical Collection Method Collection Time Receive d Time (Source) Location / / Volume Laterality 06/12/2013 7:48 PM 3 7:48 VIDEO GAMES MECHANIC PM VIDEO GAMES MECHANIC Historical Provider LAB BLOOD ADD-ON Performing Organization Address City/[facility] Phon e Number [facility] LABORATORIES - [address] [address] [facility] (ABNORMAL) Thromboelastograph, Kaolin, Blood (06/12/2013 7:48 PM VIDEO GAMES MECHANIC) Patholo gist Method Time Signature R Time 10.4 (H) 4.0 - 9.0 [facility] MIN LABORATORIES [facility] K Time 1.6 1.0 - 1.8 [facility] MIN LABORATORIES [facility] Maximum 62.1 57.1 - 72.6 [facility] Amplitude MM LABORATORIES [facility] Ly30 0.0 0.0 - 4.8 % [facility] R + K 12.0 (H) 4.9 - 10.8 [facility] MIN [facility] Angle 68.1 64.0 - 78.1 [facility] DEGREES [facility] Specimen Anatomical Collection Method Collection Time Receive d Time (Source) Location / / Volume Laterality 06/12/2013 7:48 PM 3 7:48 VIDEO GAMES MECHANIC PM VIDEO GAMES MECHANIC Historical Provider LAB BLOOD NON ADD-ON Performing Organization Address City/[facility] Code Phon e Number [facility] LABORATORIES - [address] [address] [facility] Glucose, Whole Blood (06/12/2013 7:48 PM VIDEO GAMES MECHANIC) P athologist Signature Glucose, S 86 70 - 140 [facility] MG/DL [facility] Specimen Anatomical Collection Method Collection Time Receive d Time (Source) Location / / Volume Laterality 06/12/2013 7:48 PM 3 7:48 VIDEO GAMES MECHANIC PM VIDEO GAMES MECHANIC Historical Provider LAB BLOOD TROPONIN Performing Organization Address [facility] Phon e Number [facility] LABORATORIES - [address] [address] [facility] (ABNORMAL) Sodium (06/12/2013 7:48 PM VIDEO GAMES MECHANIC) P athologist Signature Sodium, B 128 (L) 135 - 145 [facility] MMOL/L [facility] Specimen Anatomical Collection Method Collection Time Receive d Time (Source) Location / / Volume Laterality 06/12/2013 7:48 PM 3 7:48 VIDEO GAMES MECHANIC PM VIDEO GAMES MECHANIC Historical Provider LAB BLOOD ADD-ON Performing Organization Address City/[facility] Phon e Number [facility] LABORATORIES - [address] [place], [place] [address] [facility] (ABNORMAL) Blood Gas with Coox, Arterial (06/12/2013 7:48 PM VIDEO GAMES MECHANIC) Analysis Performed At Patho logist Time Signature pO2 227 (H) 80 - 100 [facility] MM HG [facility] pCO2 28 (L) 35 - 45 MM [facility] HG [facility] HCO3 18 (L) 22 - 26 [facility] MMOL/L [facility] Hb 7.6 (L) 13.5 - [facility] 17.5 G/DL [facility] O2Hb 98.2 (H) 94.0 - [facility] 98.0 % [facility] COHb 1.0 <3.0 % [facility] pH 7.42 7.35 - [facility] 7.45 PH [facility] Base Excess -7 (L) -2 - 2 [facility] MMOL/L [facility] MetHb <1.0 <1.6 % [facility] CtO2 11.1 (L) 21.0 - [facility] 23.0 VOL % [facility] Specimen Anatomical Collection Method Collection Time Receive d Time (Source) Location / / Volume Laterality 06/12/2013 7:48 PM 3 7:48 VIDEO GAMES MECHANIC PM VIDEO GAMES MECHANIC Historical Provider LAB BLOOD NON ADD-ON Performing Organization Address [facility] Code Phon e Number [facility] - [address] [address] [facility] (ABNORMAL) PT (Prothrombin Time) with INR (06/12/2013 7:48 PM VIDEO GAMES MECHANIC) Patholo gist Method Time Signature Prothrombin 24.2 (H) 9.5 - [facility] Time, P 13.8 SEC [facility] INR 2.2 0.8 - 1.2 [facility] Specimen Anatomical Collection Method Collection Time Receive d Time (Source) Location / / Volume Laterality 06/12/2013 7:48 PM 3 7:48 VIDEO GAMES MECHANIC PM VIDEO GAMES MECHANIC Historical Provider LAB BLOOD ADD-ON Performing Organization Address City/[facility] Phon e Number [facility] - [address] [address] [facility] (ABNORMAL) APTT (Activated Partial Thromboplastin Time) (06/12/2013 7:48 PM VIDEO GAMES MECHANIC) P athologist Signature APTT, P 49 (H) 28 - 38 SEC [facility] Specimen Anatomical Collection Method Collection Time Receive d Time (Source) Location / / Volume Laterality 06/12/2013 7:48 PM 3 7:48 VIDEO GAMES MECHANIC PM VIDEO GAMES MECHANIC Historical Provider LAB BLOOD ADD-ON Performing Organization Address [facility] Phon e Number [facility] [address] [address] 05 [facility] DX Chest AP or PA and Lateral 2 Views (06/12/2013 7:40 AM VIDEO GAMES MECHANIC) Anatomical Region Laterality Modality Chest N/A Radiographic Imaging Specimen (Source) Anatomical Collection Method Collection Time Re ceived Time Location / / Volume Laterality 06/12/2013 7:40 AM VIDEO GAMES MECHANIC Narrative 06/12/2013 7:43 AM VIDEO GAMES MECHANIC 12-Jun-2013 07:40:00 ??Exam: Chest-- 2 Views Indications: Liver Transplant ORIGINAL REPORT - 12-Jun-2013 07:43:00 Chest; 2 views: Elevation of the right hemidiaphragm. Mu ltiple stents in the right upper quadrant. Mild cardiomegaly. No edema. Some improvement in the atelectasis at the right lung base since yesterday. Electronically signed by: ?? Mayra Welsl [id number] 12-Jun-20 13 07:43 Procedure Note Mayra Wells M.B., .B. - 12-Jun-2013 07:40:00 Exam: Chest-- 2 Vie ws Indications: Liver Transplant ORIGINAL REPORT - 12-Jun-2013 07:43:00 Chest; 2 views: Elevation of the right hemidiaphragm. Mu ltiple stents in the right upper quadrant. Mild cardiomegaly. No edema. Some improvement in the atelectasis at the right lung base since yesterday. Electronically signed by: Mayra Wells [id number] 12-Jun-20 13 07:43 Juancarlos Castro M.D. [facility] DIAGNOSTIC IMAGING [facility] Microbiology Reports (06/12/2013 7:38 AM VIDEO GAMES MECHANIC) Specimen Anatomical Collection Method Collection Time Receive d Time (Source) Location / / Volume Laterality 06/12/2013 7:38 AM 3 7:38 VIDEO GAMES MECHANIC AM VIDEO GAMES MECHANIC Narrative [facility] - 06/13/2013 8:01 AM VIDEO GAMES MECHANIC 12-JUN-2013 URINE, MIDSTREAM, ?SoftOrd# [id number] ?(Ordered 12-JUN-2013; Collec onel 12-JUN-2013 07:38; Received 12-JUN-2013 10:23) ?MCLab [facility] ?BACTERIAL CULTURE, AEROBIC + GRIFFITH SC ? (Reported 13-JUN-2013 08:01) FINAL ?No Growth after 1 day of inc ubation. Procedure Note 10/01/2017 12-JUN-2013 URINE, MIDSTREAM, SoftOrd# [id number] (Ordered 12-JUN-2013; Collected 2012 07:38; Received 12-JUN-2013 10:23) [facility] BACTERIAL CULTURE, AEROBIC + SUSC (Rep orted 13-JUN-2013 08:01) FINAL No Growth after 1 day of incubation. Juancarlos Castro M.D. LAB MICROBIOLOGY - GENERAL O RDERABLES Performing Organization Address City/[facility]/ZIP Code Phon e Number [facility] LABORATORIES - [address] [address] [facility] Gram Stain, Urine (06/12/2013 7:38 AM VIDEO GAMES MECHANIC) [facility] gist Method Time Signature Gram's Stain, Negative [facility] Screen, U LABORATORIES [facility] Specimen Anatomical Collection Method Collection Time Receive d Time (Source) Location / / Volume Laterality 06/12/2013 7:38 AM 3 7:38 VIDEO GAMES MECHANIC AM VIDEO GAMES MECHANIC Juancarlos Castro M.D. LAB URINE ORDERABLES Performing Organization Address City/[facility]/ZIP Code Phon e Number [facility] LABORATORIES - [address] (ABNORMAL) Microscopic Manual (06/12/2013 7:38 AM VIDEO GAMES MECHANIC) [facility] Method Time Signature Microscopy Abnormal [facility] Blood <3 <3 /HPF [facility] WBC 1-3 1-3 [facility] (Males); LABORATORIES - 1-10 [facility] /HPF Casts, Hyaline Occas /LPF [facility] Granular Casts Occas (A) /LPF [facility] Renal 1-3 (A) /HPF [facility] Epithelial LABORATORIES - Cells [facility] Specimen Anatomical Collection Method Collection Time Receive d Time (Source) Location / / Volume Laterality 06/12/2013 7:38 AM 3 7:38 VIDEO GAMES MECHANIC AM VIDEO GAMES MECHANIC Juancarlos Castro M.D. LAB URINE ORDERABLES Performing Organization Address City/[facility]/ZIP Code Phon e Number [facility] LABORATORIES - [address] [address] [facility] (ABNORMAL) Urinalysis with Microscopic (06/12/2013 7:38 AM VIDEO GAMES MECHANIC) [facility] Method Time Signature Source Midstream [facility] Appearance Normal Normal [facility] pH, 24 HR, U 6.0 4.5 - 8.0 [facility] Protein/Osmola 0.34 (H) <0.12 RATIO [facility] lity [facility] Predicted 24 337 MG/24 H [facility] Hr Protein [facility] Predicted 107-1061 MG/24 H [facility] Range [facility] Glucose 6 0 - 15 MG/DL [facility] Protein, U 12 0 - 19 MG/DL [facility] Hemoglobin, QL Negative Negative [facility] Osmolality, 24 353 150 - 1150 [facility] HR, U MOSM/KG [facility] Specimen Anatomical Collection Method Collection Time Receive d Time (Source) Location / / Volume Laterality 06/12/2013 7:38 AM 3 7:38 VIDEO GAMES MECHANIC AM VIDEO GAMES MECHANIC Juancarlos Castro M.D. LAB URINE ORDERABLES Performing Organization Address City/State/ZIP Code Phon e Number [facility] - [address] [address] [facility] Microbiology Reports (06/12/2013 6:49 AM VIDEO GAMES MECHANIC) Specimen Anatomical Collection Method Collection Time Receive d Time (Source) Location / / Volume Laterality 06/12/2013 6:49 AM 3 6:49 VIDEO GAMES MECHANIC AM VIDEO GAMES MECHANIC Narrative [facility] - 06/17/2013 12:30 PM VIDEO GAMES MECHANIC 12-JUN-2013 BLOOD, right arm ? SoftOrd# [id number] ?(Ordered 12-JUN-2013; Collec onel 12-JUN-2013 06:49; Received 12-JUN-2013 07:34) [facility] ?BACTERIA/MARRY CULTURE, BLOOD ? (Reported 17-JUN-2013 12:30) FINAL ?No growth after 5 days of in cubation. Procedure Note 10/01/2017 12-JUN-2013 BLOOD, right arm SoftOrd# [id number] (Ordered 12-JUN-2013; Collected 2012 06:49; Received 12-JUN-2013 07:34) [facility] BACTERIA/MARRY CULTURE, BLOOD (Repor onel 17-JUN-2013 12:30) FINAL No growth after 5 days of incubation. Juancarlos Castro M.D. LAB MICROBIOLOGY - GENERAL O RDERABLES Performing Organization Address City/State/[facility] Code Phon e Number [facility] - [address] [place], [place] [address] [facility] Microbiology Reports (06/12/2013 6:45 AM VIDEO GAMES MECHANIC) Specimen Anatomical Collection Method Collection Time Receive d Time (Source) Location / / Volume Laterality 06/12/2013 6:45 AM 3 6:45 VIDEO GAMES MECHANIC AM VIDEO GAMES MECHANIC Narrative [facility] - 06/17/2013 12:30 PM VIDEO GAMES MECHANIC 12-JUN-2013 BLOOD, left arm ?SoftOrd# [id number] ?(Ordered 12-JUN-2013; Collec onel 12-JUN-2013 06:45; Received 12-JUN-2013 07:33) ?[facility] ?BACTERIA/MARRY CULTURE, BLOOD ? (Reported 17-JUN-2013 12:30) FINAL ?No growth after 5 days of in cubation. Procedure Note 10/01/2017 12-JUN-2013 BLOOD, left arm SoftOrd# [id number] (Ordered 12-JUN-2013; Collected 2012 06:45; Received 12-JUN-2013 07:33) [facility] BACTERIA/MARRY CULTURE, BLOOD (Repor onel 17-JUN-2013 12:30) FINAL No growth after 5 days of incubation. Juancarlos Castro M.D. LAB MICROBIOLOGY - GENERAL O RDERABLES Performing Organization Address City/[facility]/ZIP Code Phon e Number [facility] LABORATORIES - [address] [address] [facility] Ammonia Level, Plasma (06/12/2013 6:45 AM VIDEO GAMES MECHANIC) athologist Signature Ammonia, B 36 <50 MCG [facility] N/DL [facility] Specimen Anatomical Collection Method Collection Time Receive d Time (Source) Location / / Volume Laterality 06/12/2013 6:45 AM 3 6:45 VIDEO GAMES MECHANIC AM VIDEO GAMES MECHANIC Juancarlos Castro M.D. LAB BLOOD NON ADD-ON Performing Organization Address City/[facility]/ZIP Code Phon e Number [facility] LABORATORIES - [address] (ABNORMAL) Cytomegalovirus Ab, IgM and IgG (06/12/2013 6:45 AM VIDEO GAMES MECHANIC) [facility] Method Time Signature Cytomegalovirus Positive Negative [facility] Ab, IgG, S (A) [facility] Cytomegalovirus Negative Negative [facility] Ab, IgM, S [facility] Specimen Anatomical Collection Method Collection Time Receive d Time (Source) Location / / Volume Laterality 06/12/2013 6:45 AM 3 6:45 VIDEO GAMES MECHANIC AM VIDEO GAMES MECHANIC Juancralos Castro M.D. LAB MICROBIOLOGY - BLOOD ORD ERABLES Performing Organization Address City/[facility]/ZIP Code Phon e Number [facility] LABORATORIES - [address] [address] [facility] (ABNORMAL) Fibrinogen (06/12/2013 6:44 AM VIDEO GAMES MECHANIC) [facility] gist Method Time Signature Fibrinogen, P 195 (L) 200 - 375 [facility] MG/DL [facility] Specimen Anatomical Collection Method Collection Time Receive d Time (Source) Location / / Volume Laterality 06/12/2013 6:44 AM 3 6:44 VIDEO GAMES MECHANIC AM VIDEO GAMES MECHANIC Juancarlos Castro M.D. LAB BLOOD ADD-ON Performing Organization Address City/State/ZIP Code Phon e Number [facility] LABORATORIES - [address] [place] [phone] [facility] (ABNORMAL) CBC with Differential (06/12/2013 6:44 AM VIDEO GAMES MECHANIC) [facility] gist Method Time Signature Erythrocytes 2.43 (L) 4.32 - [facility] 5.72 LABORATORIES - X10(12)/L [facility] MCV 88.9 81.2 - [facility] 95.1 [place] LABORATORIES - [facility] RBC Distrib 19.4 (H) 11.8 - [facility] Width 15.6 % LABORATORIES - [facility] Platelet Count 92 (L) 150 - 450 [facility] X10(9)/L LABORATORIES - [facility] Leukocytes 3.3 (L) 3.5 - [facility] 10.5 LABORATORIES - X10(9)/L [facility] Neutrophils 1.71 1.70 - [facility] 7.00 LABORATORIES - X10(9)/L [facility] Eosinophils 0.18 0.05 - [facility] 0.50 LABORATORIES - X10(9)/L [facility] Basophils 0.03 0.00 - [facility] 0.30 LABORATORIES - X10(9)/L [facility] Hemoglobin 8.0 (L) 13.5 - [facility] 17.5 G/DL LABORATORIES - [facility] Hematocrit 21.6 (L) 38.8 - [facility] 50.0 % LABORATORIES - [facility] Lymphocytes 0.81 (L) 0.90 - [facility] 2.90 LABORATORIES - X10(9)/L [facility] Monocytes 0.57 0.30 - [facility] 0.90 LABORATORIES - X10(9)/L [facility] Specimen Anatomical Collection Method Collection Time Receive d Time (Source) Location / / Volume Laterality 06/12/2013 6:44 AM 3 6:44 VIDEO GAMES MECHANIC AM VIDEO GAMES MECHANIC Juancarlos Castro M.D. LAB BLOOD ADD-ON Performing Organization Address City/State/[facility] Code Phon e Number [facility] LABORATORIES - [address] [place] [phone] [facility] Glucose, Fasting (06/12/2013 6:44 AM VIDEO GAMES MECHANIC) P athologist Signature Glucose, P 90 70 - 100 [facility] MG/DL [facility] Specimen Anatomical Collection Method Collection Time Receive d Time (Source) Location / / Volume Laterality 06/12/2013 6:44 AM 3 6:44 VIDEO GAMES MECHANIC AM VIDEO GAMES MECHANIC Juancarlos Castro M.D. LAB BLOOD NON ADD-ON Performing Organization Address City/State/ZIP Code Phon e Number [facility] LABORATORIES - [address] [place], [place] [address] [facility] Triglycerides (06/12/2013 6:44 AM VIDEO GAMES MECHANIC) Patholo gist Method Time Signature Triglycerides 123 SeeComment [facility] MG/DL [facility] Comment: Reference Range: ? NCEP guidelines ? (ages 18y and up) ? Normal: <150 ? Borderline high: 150-199 ? High: 200-499 ? Very high: > or =500 ? Specimen Anatomical Collection Method Collection Time Receive d Time (Source) Location / / Volume Laterality 06/12/2013 6:44 AM 201 3 6:44 VIDEO GAMES MECHANIC AM VIDEO GAMES MECHANIC Juancarlos Castro M.D. LAB BLOOD ADD-ON Performing Organization Address City/State/ZIP Code Phon e Number [facility] LABORATORIES - [address] [place], [place] [address] [facility] HLA Class II SAB Antibody Screen (06/12/2013 6:44 AM VIDEO GAMES MECHANIC) [facility] gist Method Time Signature Class II SAB Positive Not Applicable [facility] Overall LABORATORIES - Result [facility] Class II SAB 21 [facility] cPRA LABORATORIES - [facility] Comment: This PRA is a [facility] Tiss ue Typing ? Laboratory calculated PRA. PRA is based on the antigen ? frequency of the Tissue Typing patient a nd donor ? population. ??PRA reflects all antibodie s with a normalized ? value (MFI) above 300. ? SAB DQB1 Specificity NONE [facility] SAB DPB1 Specificity . [facility] Comment: 4[727], 3[461], 4[365], 23[320] ? Format: Serologic equivalent/abbreviated specificity ? [Normalized Value] shown in decreasing o rder. Note: A ? serologic equivalent/abbreviated specifi city displayed ? multiple times could indicate different alleles. ? Method: Luminex Flow Cytometry ? SAB DRB1 Specificity . [facility]ATOR[facility] - [facility] Comment: 4[472], 4[375] ? Format: Serologic equivalent/abbreviated specificity ? [Normalized Value] shown in decreasing o rder. Note: A ? serologic equivalent/abbreviated specifi city displayed ? multiple times could indicate different alleles. ? SAB SDB600 Specificity NONE [facility] Specimen Anatomical Collection Method Collection Time Receive d Time (Source) Location / / Volume Laterality 06/12/2013 6:44 AM 3 6:44 VIDEO GAMES MECHANIC AM VIDEO GAMES MECHANIC Juancarlos Castro M.D. LAB HLA ORDERABLES Performing Organization Address City/State/ZIP Code Phon e Number [facility] - [address] [place], [place] [address] [facility] Hepatitis B Surface Antigen (06/12/2013 6:44 AM VIDEO GAMES MECHANIC) [facility] Method Time Signature HBs Antigen, Negative Negative [facility] Comment: Evidence of icterus was noted in the spe cimen. Icterus could ? interfere with test results. Interpret r esults with caution. ? Specimen Anatomical Collection Method Collection Time Receive d Time (Source) Location / / Volume Laterality 06/12/2013 6:44 AM 3 6:44 VIDEO GAMES MECHANIC AM VIDEO GAMES MECHANIC Juancarlos Castro M.D. LAB MICROBIOLOGY - BLOOD ORD ERABLES Performing Organization Address City/State/ZIP Code Phon e Number [facility] LABORATORIES - [address] [place] [address] 05 [facility] (ABNORMAL) Hepatitis A Total Ab, S (06/12/2013 6:44 AM VIDEO GAMES MECHANIC) Patholo gist Method Time Signature Hepatitis A Positive (A) Negative [facility] Total Ab, S LABORATORIES [facility] Comment: Evidence of icterus was noted in the spe cimen. Icterus could ? interfere with test results. Interpret r esults with caution. ? REVISED REPORT, Previously reported as: Positive (Reported 06/12/2013 15:57) ? Specimen Anatomical Collection Method Collection Time Receive d Time (Source) Location / / Volume Laterality 06/12/2013 6:44 AM 3 6:44 VIDEO GAMES MECHANIC AM VIDEO GAMES MECHANIC Juancarlos Castro M.D. LAB MICROBIOLOGY - BLOOD ORD ERABLES Performing Organization Address City/State/ZIP Code Phon e Number [facility] LABORATORIES - [address] [place] [phone] [facility] (ABNORMAL) Albumin (06/12/2013 6:44 AM VIDEO GAMES MECHANIC) P athologist Signature Albumin, S 3.1 (L) 3.5 - 5.0 [facility] G/DL LABORATORIES [facility] Specimen Anatomical Collection Method Collection Time Receive d Time (Source) Location / / Volume Laterality 06/12/2013 6:44 AM 3 6:44 VIDEO GAMES MECHANIC AM VIDEO GAMES MECHANIC Juancarlos Castro M.D. LAB BLOOD ADD-ON Performing Organization Address City/State/ZIP Code Phon e Number [facility] LABORATORIES - [address] [place], [place] [address] [facility] Hepatitis Be Ag and Ab (06/12/2013 6:44 AM VIDEO GAMES MECHANIC) [facility] gist Method Time Signature Hepatitis Be Negative Negative [facility] Ag, S LABORATORIES - [facility] Comment: Evidence of icterus was noted in the spe cimen. Icterus could ? interfere with test results. Interpret r esults with caution. ? HBe Antibody, S Negative Negative [facility] LA BORATORIES [facility] Comment: Evidence of icterus was noted in the spe cimen. Icterus could ? interfere with test results. Interpret r esults with caution. ? Specimen Anatomical Collection Method Collection Time Receive d Time (Source) Location / / Volume Laterality 06/12/2013 6:44 AM 3 6:44 VIDEO GAMES MECHANIC AM VIDEO GAMES MECHANIC Juancarlos Castro M.D. LAB MICROBIOLOGY - BLOOD ORD ERABLES Performing Organization Address City/[facility]/ZIP Code Phon e Number [facility] LABORATORIES - [address] [facility] [address] (ABNORMAL) Bilirubin, Direct (06/12/2013 6:44 AM VIDEO GAMES MECHANIC) [facility] Method Time Signature Bilirubin, 24.7 (H) 0.0 - 0.3 [facility] Direct, S MG/DL [facility] Specimen Anatomical Collection Method Collection Time Receive d Time (Source) Location / / Volume Laterality 06/12/2013 6:44 AM 3 6:44 VIDEO GAMES MECHANIC AM VIDEO GAMES MECHANIC Juancarlos Castro M.D. LAB BLOOD ADD-ON Performing Organization Address City/[facility] Code Phon e Number [facility] LABORATORIES - [address] Hepatitis B Core Total Ab (06/12/2013 6:44 AM VIDEO GAMES MECHANIC) [facility] Signature HBc Total Ab, Negative Negative [facility] S [facility] Comment: Evidence of icterus was noted in the spe cimen. Icterus could ? interfere with test results. Interpret r esults with caution. ? Specimen Anatomical Collection Method Collection Time Receive d Time (Source) Location / / Volume Laterality 06/12/2013 6:44 AM 3 6:44 VIDEO GAMES MECHANIC AM VIDEO GAMES MECHANIC Juancarlos Castro M.D. LAB MICROBIOLOGY - BLOOD ORD ERABLES Performing Organization Address City/[facility]/ZIP Code Phon e Number [facility] LABORATORIES - [address] HLA Class I SAB Antibody Screen (06/12/2013 6:44 AM VIDEO GAMES MECHANIC) [facility] gist Method Time Signature Class I SAB Positive Not Applicable [facility] Overall LABORATORIES - Result [facility] Class I SAB 8 [facility] cPRA LABORATORIES - [facility] Comment: This PRA is a [facility] Tiss ue Typing ? Laboratory calculated PRA. PRA is based on the antigen ? frequency of the Tissue Typing patient a nd donor ? population. ??PRA reflects all antibodie s with a normalized ? value (MFI) above 300. ? SAB C Specificity NONE [facility] Comment: Method: Luminex Flow Cytometry SAB A Specificity . [facility] Comment: 29[454], 33[364], 29[341] ? Format: Serologic equivalent/abbreviated specificity ? [Normalized Value] shown in decreasing o rder. Note: A ? serologic equivalent/abbreviated specifi city displayed ? multiple times could indicate different alleles. ? SAB B Specificity . [facility] Comment: 75[1168], 67[450], 63[325] ? Format: Serologic equivalent/abbreviated specificity ? [Normalized Value] shown in decreasing o rder. Note: A ? serologic equivalent/abbreviated specifi city displayed ? multiple times could indicate different alleles. ? Specimen Anatomical Collection Method Collection Time Receive d Time (Source) Location / / Volume Laterality 06/12/2013 6:44 AM 3 6:44 VIDEO GAMES MECHANIC AM VIDEO GAMES MECHANIC Juancarlos Castro M.D. LAB HLA ORDERABLES Performing Organization Address City/[facility]/ZIP Code Phon e Number [facility] LABORATORIES - [address] [place] [phone] [facility] (ABNORMAL) PT (Prothrombin Time) with INR (06/12/2013 6:44 AM VIDEO GAMES MECHANIC) [facility] Method Time Signature Prothrombin 25.6 (H) 9.5 - [facility] Time, P 13.8 SEC LABORATORIES - [facility] INR 2.3 0.8 - 1.2 [facility] Specimen Anatomical Collection Method Collection Time Receive d Time (Source) Location / / Volume Laterality 06/12/2013 6:44 AM 3 6:44 VIDEO GAMES MECHANIC AM VIDEO GAMES MECHANIC Juancarlos Castro M.D. LAB BLOOD ADD-ON Performing Organization Address City/[facility] Phon e Number [facility] LABORATORIES - [address] [place] [phone] [facility] (ABNORMAL) Electrolyte (Chem 4) Panel (06/12/2013 6:44 AM VIDEO GAMES MECHANIC) [facility] Method Time Signature Sodium, S 131 (L) 135 - 145 [facility] MMOL/L [facility] Potassium, S 3.8 3.6 - 5.2 [facility] MMOL/L [facility] Glucose, S 90 70 - 140 [facility] MG/DL [facility] HX Bicarbonate, 19 (L) 22 - 29 [facility] P/S MMOL/L [facility] Anion Gap 12 7 - 15 [facility] Creatinine 2.3 (H) 0.8 - 1.3 [facility] MG/DL [facility] Chloride, S 100 100 - 108 [facility] MMOL/L [facility] BUN (Blood Urea 32 (H) 8 - 24 [facility] Nitrogen), S MG/DL [facility] eGFR 29 (L) >60 [facility] Non-Black/Afric ML/MIN/BS LABORATORIES - [facility] eGFR-Black/Afri 36 (L) >60 [facility] can [place] ML/MIN/BS LABORATORIES [facility] Specimen Anatomical Collection Method Collection Time Receive d Time (Source) Location / / Volume Laterality 06/12/2013 6:44 AM 3 6:44 VIDEO GAMES MECHANIC AM VIDEO GAMES MECHANIC Juancarlos Castro M.D. LAB BLOOD ADD-ON Performing Organization Address City/[facility]/ZIP Code Phon e Number [facility] LABORATORIES - [address] [place] [address] [facility] (ABNORMAL) APTT (Activated Partial Thromboplastin Time) (06/12/2013 6:44 AM VIDEO GAMES MECHANIC) P athologist Signature APTT, P 45 (H) 28 - 38 SEC [facility] Specimen Anatomical Collection Method Collection Time Receive d Time (Source) Location / / Volume Laterality 06/12/2013 6:44 AM 3 6:44 VIDEO GAMES MECHANIC AM VIDEO GAMES MECHANIC Juancarlos Castro M.D. LAB BLOOD ADD-ON Performing Organization Address City/[facility]/ZIP Code Phon e Number [facility] LABORATORIES - [address] [place] [address] [facility] (ABNORMAL) Protein, Total (06/12/2013 6:44 AM VIDEO GAMES MECHANIC) [facility] Signature Total Protein, 4.4 (L) 6.3 - 7.9 [facility] S G/DL [facility] Specimen Anatomical Collection Method Collection Time Receive d Time (Source) Location / / Volume Laterality 06/12/2013 6:44 AM 3 6:44 VIDEO GAMES MECHANIC AM VIDEO GAMES MECHANIC Juancarlos Castro M.D. LAB BLOOD ADD-ON Performing Organization Address City/[facility]/ZIP Code Phon e Number [facility] LABORATORIES - [address] [place] [phone] [facility] S-TSH (Thyroid-Stimulating Hormone - Sensitive) (06/12/2013 6:44 AM VIDEO GAMES MECHANIC) P athologist Signature TSH, Sensitive 2.9 0.3 - 5.0 [facility] MIU/L [facility] Specimen Anatomical Collection Method Collection Time Receive d Time (Source) Location / / Volume Laterality 06/12/2013 6:44 AM 3 6:44 VIDEO GAMES MECHANIC AM VIDEO GAMES MECHANIC Juancarlos Castro M.D. LAB BLOOD ADD-ON Performing Organization Address City/[facility]/ZIP Code Phon e Number [facility] LABORATORIES - [address] [place] [phone] [facility] Phosphorus Inorganic (06/12/2013 6:44 AM VIDEO GAMES MECHANIC) Analysis Performed At Patho logist Time Signature Phosphorus 2.7 2.5 - 4.5 [facility] (Inorganic), S MG/DL LABORATORIES [facility] Specimen Anatomical Collection Method Collection Time Receive d Time (Source) Location / / Volume Laterality 06/12/2013 6:44 AM 3 6:44 VIDEO GAMES MECHANIC AM VIDEO GAMES MECHANIC Juancarlos Castro M.D. LAB BLOOD ADD-ON Performing Organization Address City/[facility]/ZIP Code Phon e Number [facility] LABORATORIES - [address] [place] [address] [facility] (ABNORMAL) ALT (Alanine Aminotransferase) (06/12/2013 6:44 AM VIDEO GAMES MECHANIC) [facility] gist Method Time Signature Alanine 81 (H) 7 - 55 [facility] Aminotransferase U/L LABORATORIES - (ALT), S [facility] Specimen Anatomical Collection Method Collection Time Receive d Time (Source) Location / / Volume Laterality 06/12/2013 6:44 AM 3 6:44 VIDEO GAMES MECHANIC AM VIDEO GAMES MECHANIC Juancarlos Castro M.D. LAB BLOOD ADD-ON Performing Organization Address City/[facility]/ZIP Code Phon e Number [facility] LABORATORIES - [address] [place] [address] [facility] (ABNORMAL) Bilirubin, Total (06/12/2013 6:44 AM VIDEO GAMES MECHANIC) [facility] gist Method Time Signature Bilirubin, 30.1 (H) 0.1 - 1.0 [facility] Total, S MG/DL [facility] Specimen Anatomical Collection Method Collection Time Receive d Time (Source) Location / / Volume Laterality 06/12/2013 6:44 AM 3 6:44 VIDEO GAMES MECHANIC AM VIDEO GAMES MECHANIC Juancarlos Castro M.D. LAB BLOOD ADD-ON Performing Organization Address City/[facility]/ZIP Code Phon e Number [facility] LABORATORIES - [address] [place] [address] [facility] HCV Ab w/Reflex to HCV PCR, S (06/12/2013 6:44 AM VIDEO GAMES MECHANIC) P athologist Signature HCV Ab, S Negative Negative [facility] Comment: Elwzvk-[id number]-plfruv ratio is <1.00. ? Evidence of icterus was noted in the spe cimen. Icterus could ? interfere with test results. Interpret r esults with caution. ? Specimen Anatomical Collection Method Collection Time Receive d Time (Source) Location / / Volume Laterality 06/12/2013 6:44 AM 3 6:44 VIDEO GAMES MECHANIC AM VIDEO GAMES MECHANIC Juancarlos Castro M.D. LAB MICROBIOLOGY - BLOOD ORD ERABLES Performing Organization Address City/[facility]/ZIP Code Phon e Number [facility] LABORATORIES - [address] (ABNORMAL) Calcium, Total (06/12/2013 6:44 AM VIDEO GAMES MECHANIC) Patholo gist Method Time Signature Calcium, 10.6 (H) 8.9 - [facility] Total, S 10.1 LABORATORIES - MG/DL [facility] Specimen Anatomical Collection Method Collection Time Receive d Time (Source) Location / / Volume Laterality 06/12/2013 6:44 AM 3 6:44 VIDEO GAMES MECHANIC AM VIDEO GAMES MECHANIC Juancarlos Castro M.D. LAB BLOOD ADD-ON Performing Organization Address City/[facility]/ZIP Code Phon e Number [facility] LABORATORIES - [address] [place] [address] [facility] Hepatitis B Core IgM Ab (06/12/2013 6:44 AM VIDEO GAMES MECHANIC) Patholo gist Method Time Signature HBc IgM Ab, S Negative Negative [facility] Comment: Evidence of icterus was noted in the spe cimen. Icterus could ? interfere with test results. Interpret r esults with caution. ? REVISED REPORT, Previously reported as: Negative (Reported 06/12/2013 15:44) ? Specimen Anatomical Collection Method Collection Time Receive d Time (Source) Location / / Volume Laterality 06/12/2013 6:44 AM 3 6:44 VIDEO GAMES MECHANIC AM VIDEO GAMES MECHANIC Juancarlos Castro M.D. LAB MICROBIOLOGY - BLOOD ORD ERABLES Performing Organization Address [facility] Phon e Number [facility] LABORATORIES - [address] [place] [phone] [facility] Alkaline Phosphatase (06/12/2013 6:44 AM VIDEO GAMES MECHANIC) P athologist Signature Alkaline 105 45 - 115 [facility] Phosphatase, S U/L LABORATORIES - [facility] Specimen Anatomical Collection Method Collection Time Receive d Time (Source) Location / / Volume Laterality 06/12/2013 6:44 AM 3 6:44 VIDEO GAMES MECHANIC AM VIDEO GAMES MECHANIC Juancarlos Castro M.D. LAB BLOOD ADD-ON Performing Organization Address [facility] Phon e Number [facility] LABORATORIES - [address] [place] [phone] [facility] (ABNORMAL) AST (Aspartate Aminotransferase) (06/12/2013 6:44 AM VIDEO GAMES MECHANIC) [facility] [employer] Method Time Signature AST, Total, S 186 (H) 8 - 48 U/L [facility] Specimen Anatomical Collection Method Collection Time Receive d Time (Source) Location / / Volume Laterality 06/12/2013 6:44 AM 3 6:44 VIDEO GAMES MECHANIC AM VIDEO GAMES MECHANIC Juancarlos Castro M.D. LAB BLOOD ADD-ON Performing Organization Address City/State/ZIP Code Phon e Number [facility] - [address] [place], [place] [address] [facility] Cholesterol, Total (06/12/2013 6:44 AM VIDEO GAMES MECHANIC) [facility] [employer] Method Time Signature Cholesterol, 42 SeeComment [facility] Total MG/DL [facility] Comment: Reference Range: ? NCEP guidelines ? (ages 18y and up) ? Desirable: <200 ? Borderline high: 200-239 ? High: > or =240 ? Specimen Anatomical Collection Method Collection Time Receive d Time (Source) Location / / Volume Laterality 06/12/2013 6:44 AM 3 6:44 VIDEO GAMES MECHANIC AM VIDEO GAMES MECHANIC Juancarlos Castro M.D. LAB BLOOD ADD-ON Performing Organization Address City/State/ZIP Code Phon e Number [facility] - [address] [place], [place] [address] [facility] Prepare Red Blood Cells (06/12/2013 6:28 AM VIDEO GAMES MECHANIC) Analysis Performed At Patho logist Time Signature HXRBC # UNITS 6 [facility] TRANSFUSED LABORATORIES - [facility] HXRBC UNIT INFO RBC [facility] Comment: Unit Blood Type O Pos Unit Number [id number] Component Type Red Blood Cells - -1 Le ukoreduced Issue Date/Time Unit Blood Type O Pos Unit Number [id number] Component Type Red Blood Cells - -1 Le ukoreduced Issue Date/Time Unit Blood Type O Pos Unit Number [id number] Component Type Red Blood Cells - -1 Le ukoreduced Issue Date/Time Unit Blood Type O Pos Unit Number [id number] Component Type Red Blood Cells - -1 Le ukoreduced Issue Date/Time Unit Blood Type O Pos Unit Number [id number] Component Type Red Blood Cells - -1 Le ukoreduced Issue Date/Time Unit Blood Type O Pos Unit Number [id number] Component Type Red Blood Cells - -1 Le ukoreduced Issue Date/Time Specimen (Source) Anatomical Collection Method Collection Time Re ceived Time Location / / Volume Laterality 06/12/2013 6:28 AM VIDEO GAMES MECHANIC Historical Provider BLOOD BANK PRODUCT ORDERABLE S Performing Organization Address City/[facility]/St. [facility] Phon e Number [facility] - [address] (ABNORMAL) PT (Prothrombin Time) with INR (06/12/2013 5:34 AM VIDEO GAMES MECHANIC) [facility] MiCarga Method Time Signature Prothrombin 25.9 (H) 9.5 - [facility] Time, P 13.8 SEC [facility] INR 2.4 0.8 - 1.2 [facility] Specimen Anatomical Collection Method Collection Time Receive d Time (Source) Location / / Volume Laterality 06/12/2013 5:34 AM 3 5:34 VIDEO GAMES MECHANIC AM VIDEO GAMES MECHANIC Juancarlos Castro M.D. LAB BLOOD ADD-ON Performing Organization Address City/[facility] Code Phon e Number [facility] - [address] (ABNORMAL) CBC with Differential - No Alerts (06/12/2013 5:34 AM VIDEO GAMES MECHANIC) [facility] Method Time Signature Erythrocytes 2.42 (L) 4.32 - [facility] 5.72 LABORATORIES - X10(12)/L [facility] MCV 88.8 81.2 - [facility] 95.1 FL LABORATORIES - [facility] RBC Distrib 19.7 (H) 11.8 - [facility] Width 15.6 % LABORATORIES - [facility] Platelet Count 83 (L) 150 - 450 [facility] X10(9)/L LABORATORIES - [facility] Lymphocytes 0.83 (L) 0.90 - [facility] 2.90 LABORATORIES - X10(9)/L [facility] Monocytes 0.55 0.30 - [facility] 0.90 LABORATORIES - X10(9)/L [facility] Hemoglobin 7.9 (L) 13.5 - [facility] 17.5 G/DL LABORATORIES - [facility] Hematocrit 21.5 (L) 38.8 - [facility] 50.0 % LABORATORIES - [facility] Leukocytes 3.4 (L) 3.5 - [facility] 10.5 LABORATORIES - X10(9)/L [facility] Neutrophils 1.78 1.70 - [facility] 7.00 LABORATORIES - X10(9)/L [facility] Eosinophils 0.19 0.05 - [facility] 0.50 LABORATORIES - X10(9)/L [facility] Basophils 0.01 0.00 - [facility] 0.30 LABORATORIES - X10(9)/L [facility] Specimen Anatomical Collection Method Collection Time Receive d Time (Source) Location / / Volume Laterality 06/12/2013 5:34 AM 3 5:34 VIDEO GAMES MECHANIC AM VIDEO GAMES MECHANIC Juancarlos Castro M.D. LAB BLOOD NON ADD-ON Performing Organization Address City/[facility]/ZIP Code Phon e Number [facility] LABORATORIES - [address] [place], [place] [address] [facility] (ABNORMAL) Calcium, Total (06/12/2013 5:34 AM VIDEO GAMES MECHANIC) [facility] Method Time Signature Calcium, 10.4 (H) 8.9 - [facility] Total, S 10.1 LABORATORIES - MG/DL [facility] Specimen Anatomical Collection Method Collection Time Receive d Time (Source) Location / / Volume Laterality 06/12/2013 5:34 AM 3 5:34 VIDEO GAMES MECHANIC AM VIDEO GAMES MECHANIC Juancarlos Castro M.D. LAB BLOOD ADD-ON Performing Organization Address City/State/ZIP Code Phon e Number [facility] LABORATORIES - [address] [place] [phone] [facility] (ABNORMAL) Bilirubin (06/12/2013 5:34 AM VIDEO GAMES MECHANIC) [facility] Method Time Signature Bilirubin, 29.1 (H) 0.1 - 1.0 [facility] Total, S MG/DL LABORATORIES - [facility] Bilirubin, 24.0 (H) 0.0 - 0.3 [facility] Direct, S MG/DL LABORATORIES - [facility] Specimen Anatomical Collection Method Collection Time Receive d Time (Source) Location / / Volume Laterality 06/12/2013 5:34 AM 3 5:34 VIDEO GAMES MECHANIC AM VIDEO GAMES MECHANIC Juancarlos Castro M.D. LAB BLOOD ADD-ON Performing Organization Address City/State/[facility] Code Phon e Number [facility] LABORATORIES - [address] [place] [phone] [facility] (ABNORMAL) Electrolyte (Chem 4) Panel (06/12/2013 5:34 AM VIDEO GAMES MECHANIC) [facility] Method Time Signature Sodium, S 130 (L) 135 - 145 [facility] MMOL/L LABORATORIES - [facility] Potassium, S 3.8 3.6 - 5.2 [facility] MMOL/L LABORATORIES - [facility] Glucose, S 96 70 - 140 [facility] MG/DL LABORATORIES - [facility] Creatinine 2.2 (H) 0.8 - 1.3 [facility] MG/DL LABORATORIES - [facility] Chloride, S 100 100 - 108 [facility] MMOL/L LABORATORIES - [facility] HX Bicarbonate, 18 (L) 22 - 29 [facility] P/S MMOL/L LABORATORIES - [facility] BUN (Blood Urea 32 (H) 8 - 24 [facility] Nitrogen), S MG/DL LABORATORIES - [facility] Anion Gap 12 7 - 15 [facility] LABORATORIES - [facility] eGFR 31 (L) >60 [facility] Non-Black/Afric ML/MIN/BS LABORATORIES - an Peruvian A [facility] eGFR-Black/Afri 37 (L) >60 [facility] can Peruvian ML/MIN/BS LABORATORIES - A [facility] Specimen Anatomical Collection Method Collection Time Receive d Time (Source) Location / / Volume Laterality 06/12/2013 5:34 AM 3 5:34 VIDEO GAMES MECHANIC AM VIDEO GAMES MECHANIC Juancarlos Castro M.D. LAB BLOOD ADD-ON Performing Organization Address City/State/ZIP Code Phon e Number [facility] LABORATORIES - [address] [place], [place] [address] [facility] (ABNORMAL) Calcium, Ionized (06/11/2013 2:37 PM VIDEO GAMES MECHANIC) [facility] Method Time Signature Calcium, 5.85 (H) 4.80 - [facility] Ionized, S 5.70 LABORATORIES - MG/DL [facility] pH 7.42 7.32 - [facility] 7.43 LABORATORIES - [facility] Specimen Anatomical Collection Method Collection Time Receive d Time (Source) Location / / Volume Laterality 06/11/2013 2:37 PM 3 2:37 VIDEO GAMES MECHANIC PM VIDEO GAMES MECHANIC Juancarlos Castro M.D. LAB BLOOD NON ADD-ON Performing Organization Address City/State/ZIP Code Phon e Number [facility] LABORATORIES - [address] [place] [phone] [facility] (ABNORMAL) PTH (Parathyroid Hormone) (06/11/2013 2:37 PM VIDEO GAMES MECHANIC) [facility] Method Time Signature Parathyroid 10 (L) 15 - 65 [facility] Hormone (PTH), S PG/ML LABORATORIES - [facility] Specimen Anatomical Collection Method Collection Time Receive d Time (Source) Location / / Volume Laterality 06/11/2013 2:37 PM 3 2:37 VIDEO GAMES MECHANIC PM VIDEO GAMES MECHANIC Juancarlos Castro M.D. LAB BLOOD ADD-ON Performing Organization Address City/State/ZIP Code Phon e Number [facility] LABORATORIES - [address] [place] [phone] [facility] Phosphorus Inorganic (06/11/2013 2:37 PM VIDEO GAMES MECHANIC) Analysis Performed At [facility] logist Time Signature Phosphorus 2.7 2.5 - 4.5 [facility] (Inorganic), S MG/DL LABORATORIES - [facility] Specimen Anatomical Collection Method Collection Time Receive d Time (Source) Location / / Volume Laterality 06/11/2013 2:37 PM 3 2:37 VIDEO GAMES MECHANIC PM VIDEO GAMES MECHANIC Juancarlos Castro M.D. LAB BLOOD ADD-ON Performing Organization Address City/State/ZIP Code Phon e Number [facility] LABORATORIES - [address] [place] [phone] [facility] (ABNORMAL) 25-Hydroxyvitamin D2 and D3 (06/11/2013 2:37 PM VIDEO GAMES MECHANIC) [facility] gist Method Time Signature 25-Hydroxy D 6.0 (L) SeeComment [facility] Total NG/ML LABORATORIES - [facility] Comment: Interpretation: <10 ng/mL (severe defici ency) ? Reference Range: ? 25-HYDROXY D TOTAL (D2+D3) Optimum level s in the healthy ? population are 20-50, patients with bone disease may ? benefit from higher levels within this r itzel. ? 25-Hydroxy D2 <4.0 NG/ML [facility] 25-Hydroxy D3 6.0 NG/ML [facility] Specimen Anatomical Collection Method Collection Time Receive d Time (Source) Location / / Volume Laterality 06/11/2013 2:37 PM 3 2:37 VIDEO GAMES MECHANIC PM VIDEO GAMES MECHANIC Juancralos Castro M.D. LAB BLOOD ADD-ON Performing Organization Address City/[facility]/ZIP Code Phon e Number [facility] LABORATORIES - [address] [place] [phone] [facility] S-TSH (Thyroid-Stimulating Hormone - Sensitive) (06/11/2013 2:37 PM VIDEO GAMES MECHANIC) athologist Signature TSH, Sensitive 2.2 0.3 - 5.0 [facility] MIU/L [facility] Specimen Anatomical Collection Method Collection Time Receive d Time (Source) Location / / Volume Laterality 06/11/2013 2:37 PM 3 2:37 VIDEO GAMES MECHANIC PM VIDEO GAMES MECHANIC Juancarlos Castro M.D. LAB BLOOD ADD-ON Performing Organization Address City/[facility]/ZIP Code Phon e Number [facility] LABORATORIES - [address] DX Chest AP or PA and Lateral 2 Views (06/11/2013 12:09 PM VIDEO GAMES MECHANIC) Anatomical Region Laterality Modality Chest N/A Radiographic Imaging Specimen (Source) Anatomical Collection Method Collection Time Re ceived Time Location / / Volume Laterality 06/11/2013 12:09 PM VIDEO GAMES MECHANIC Narrative 06/11/2013 12:15 PM VIDEO GAMES MECHANIC 11-Jun-2013 12:09:00 ??Exam: Chest-- 2 Views Indications: [...] stents. Electronically signed by: Roe Kirkpatrick M.D. [id number] 11-Jun-2013 12 :15 Wil Raphael M.D. IMG DIAGNOSTIC IMAGI NG PROCEDURES US Abdomen Limited plus Abdomen Doppler (06/11/2013 11:53 AM VIDEO GAMES MECHANIC) Anatomical Region Laterality Modality Abdomen N/A Ultrasound Specimen (Source) Anatomical Collection Method Collection Time Re ceived Time Location / / Volume Laterality 06/11/2013 11:53 AM VIDEO GAMES MECHANIC Narrative 06/11/2013 1:16 PM VIDEO GAMES MECHANIC 11-Jun-2013 11:53:00 ??Exam: US Abd Lmtd with Doppler Cmpl Indications: [id number]; Liver TX w/doppler F/U Exam Following TX [...] Electronically signed by: ?? Jovany Uriarte ??Sada [id number] 11-Jun-2013 1 3:16 Procedure Note Ileana Uriarte M.D. - 09/19/2017Form atting of this note might be different from the original. 11-Jun-2013 11:53:00 Exam: US Abd Lmtd w ith Doppler Cmpl Indications: [id number]; Liver TX w/doppler F/U Exam Following TX [...] abdomen. Electronically signed by: Jovany Uriarte M.D. [id number] 11-Jun-2013 13: 16 Tiffanie HEREDIA US PROCEDURES (ABNORMAL) Bilirubin (06/11/2013 6:10 AM VIDEO GAMES MECHANIC) [facility] Method Time Signature Bilirubin, 29.5 (H) 0.1 - 1.0 [facility] Total, S MG/DL LABORATORIES - [facility] Bilirubin, 24.9 (H) 0.0 - 0.3 [facility] Direct, S MG/DL LABORATORIES - [facility] Specimen Anatomical Collection Method Collection Time Receive d Time (Source) Location / / Volume Laterality 06/11/2013 6:10 AM 3 6:10 VIDEO GAMES MECHANIC AM VIDEO GAMES MECHANIC Radha Block APRN, C.N.P., M.S.N., R.N. LAB BLOOD ADD-ON Performing Organization Address City/[facility]/ZIP Code Phon e Number [facility] LABORATORIES - [address] [place] [phone] [facility] Calcium, Total (06/11/2013 6:10 AM VIDEO GAMES MECHANIC) P athologist Signature Calcium, 10.0 8.9 - 10.1 [facility] Total, S MG/DL LABORATORIES - [facility] Specimen Anatomical Collection Method Collection Time Receive d Time (Source) Location / / Volume Laterality 06/11/2013 6:10 AM 3 6:10 VIDEO GAMES MECHANIC AM VIDEO GAMES MECHANIC Radha Block APRN, C.N.P., M.S.N., R.N. LAB BLOOD ADD-ON Performing Organization Address City/[facility] Phon e Number [facility] LABORATORIES - [address] [place] [phone] [facility] (ABNORMAL) Tacrolimus Level (06/11/2013 6:10 AM VIDEO GAMES MECHANIC) Patholo gist Method Time Signature Tacrolimus, B <2.0 (L) 5.0-15.0 [facility] (Trough) LABORATORIES - NG/ML [facility] Tacrolimus . [facility] Blood Date of LABORATORIES - Last Dose [facility] Comment: Not Specified Tacrolimus Time of Last Dose . [facility] - [facility] Comment: Not Specified Tacrolimus Blood Dose, mg . MG [facility] LABORATORIES - [facility] Comment: Not Specified Specimen Anatomical Collection Method Collection Time Receive d Time (Source) Location / / Volume Laterality 06/11/2013 6:10 AM 3 6:10 VIDEO GAMES MECHANIC AM VIDEO GAMES MECHANIC Janette Ho APRNNDemetriusP., M.S.N., R.N. LAB BLOOD NON ADD-ON Performing Organization Address City/[facility]/ZIP [facility] Phon e Number [facility] LABORATORIES - [address] [place] [phone] [facility] (ABNORMAL) AST (Aspartate Aminotransferase) (06/11/2013 6:10 AM VIDEO GAMES MECHANIC) [facility] gist Method Time Signature AST, Total, S 189 (H) 8 - 48 U/L [facility] Specimen Anatomical Collection Method Collection Time Receive d Time (Source) Location / / Volume Laterality 06/11/2013 6:10 AM 3 6:10 VIDEO GAMES MECHANIC AM VIDEO GAMES MECHANIC Janette Ho APRNNFabrice., M.S.N., R.N. LAB BLOOD ADD-ON Performing Organization Address City/State/ZIP Code Phon e Number [facility] LABORATORIES - [address] [place] [phone] [facility] (ABNORMAL) Albumin (06/11/2013 6:10 AM VIDEO GAMES MECHANIC) P athologist Signature Albumin, S 2.8 (L) 3.5 - 5.0 [facility] G/DL LABORATORIES [facility] Specimen Anatomical Collection Method Collection Time Receive d Time (Source) Location / / Volume Laterality 06/11/2013 6:10 AM 3 6:10 VIDEO GAMES MECHANIC AM VIDEO GAMES MECHANIC Janette Ho APRNN.P., M.S.N., R.N. LAB BLOOD ADD-ON Performing Organization Address City/[facility] Code Phon e Number [facility] LABORATORIES - [address] [place] [phone] [facility] (ABNORMAL) ALT (Alanine Aminotransferase) (06/11/2013 6:10 AM VIDEO GAMES MECHANIC) [facility] Method Time Signature Alanine 85 (H) 7 - 55 [facility] Aminotransferase U/L LABORATORIES - (ALT), S [facility] Specimen Anatomical Collection Method Collection Time Receive d Time (Source) Location / / Volume Laterality 06/11/2013 6:10 AM 3 6:10 VIDEO GAMES MECHANIC AM VIDEO GAMES MECHANIC Janette Ho APRNN.P., M.S.N., R.N. LAB BLOOD ADD-ON Performing Organization Address City/[facility]/ZIP Code Phon e Number [facility] LABORATORIES - [address] [place] [phone] [facility] Alkaline Phosphatase (06/11/2013 6:10 AM VIDEO GAMES MECHANIC) P athologist Signature Alkaline 114 45 - 115 [facility] Phosphatase, S U/L LABORATORIES - [facility] Specimen Anatomical Collection Method Collection Time Receive d Time (Source) Location / / Volume Laterality 06/11/2013 6:10 AM 3 6:10 VIDEO GAMES MECHANIC AM VIDEO GAMES MECHANIC Radha Block APRN, C.N.P., M.S.N., R.N. LAB BLOOD ADD-ON Performing Organization Address City/[facility] Phon e Number [facility] LABORATORIES - [address] [place] [phone] [facility] (ABNORMAL) PT (Prothrombin Time) with INR (06/11/2013 6:10 AM VIDEO GAMES MECHANIC) [facility] Method Time Signature Prothrombin 26.7 (H) 9.5 - [facility] Time, P 13.8 SEC LABORATORIES - [facility] INR 2.4 0.8 - 1.2 [facility] LABORATORIES - [facility] Specimen Anatomical Collection Method Collection Time Receive d Time (Source) Location / / Volume Laterality 06/11/2013 6:10 AM 3 6:10 VIDEO GAMES MECHANIC AM VIDEO GAMES MECHANIC Radha Block APRN, C.N.P., M.S.N., R.N. LAB BLOOD ADD-ON Performing Organization Address City/[facility] Phon e Number [facility] LABORATORIES - [address] [place] [phone] [facility] (ABNORMAL) Electrolyte (Chem 4) Panel (06/11/2013 6:10 AM VIDEO GAMES MECHANIC) [facility] Method Time Signature Sodium, S 131 (L) 135 - 145 [facility] MMOL/L LABORATORIES [facility] Potassium, S 3.9 3.6 - 5.2 [facility] MMOL/L LABORATORIES - [facility] BUN (Blood Urea 32 (H) 8 - 24 [facility] Nitrogen), S MG/DL LABORATORIES [facility] Anion Gap 13 7 - 15 [facility] Glucose, S 76 70 - 140 [facility] MG/DL [facility] - [facility] Creatinine 2.2 (H) 0.8 - 1.3 [facility] MG/DL [facility] Chloride, S 100 100 - 108 [facility] MMOL/L LABORATORIES [facility] HX Bicarbonate, 18 (L) 22 - 29 [facility] P/S MMOL/L LABORATORIES [facility] eGFR 31 (L) >60 [facility] Non-Black/Afric ML/MIN/BS LABORATORIES - an Peruvian A [facility] eGFR-Black/Afri 37 (L) >60 [facility] can Peruvian ML/MIN/BS LABORATORIES - A [facility] Specimen Anatomical Collection Method Collection Time Receive d Time (Source) Location / / Volume Laterality 06/11/2013 6:10 AM 3 6:10 VIDEO GAMES MECHANIC AM VIDEO GAMES MECHANIC Radha Block APRN, C.N.P., M.S.N., R.N. LAB BLOOD ADD-ON Performing Organization Address City/[facility]/ZIP [facility] Phon e Number [facility] LABORATORIES - [address] [place] [phone] [facility] Magnesium (06/11/2013 6:10 AM VIDEO GAMES MECHANIC) P athologist Signature Magnesium, S 1.9 1.7 - 2.3 [facility] MG/DL LABORATORIES - [facility] Specimen Anatomical Collection Method Collection Time Receive d Time (Source) Location / / Volume Laterality 06/11/2013 6:10 AM 3 6:10 VIDEO GAMES MECHANIC AM VIDEO GAMES MECHANIC Radha Block APRN, C.N.P., M.S.N., R.N. LAB BLOOD ADD-ON Performing Organization Address City/[facility] Code Phon e Number [facility] LABORATORIES - [address] [place] [phone] [facility] (ABNORMAL) CBC with Differential - No Alerts (06/11/2013 6:10 AM VIDEO GAMES MECHANIC) Patholo gist Method Time Signature Erythrocytes 2.06 (L) 4.32 - [facility] 5.72 LABORATORIES - X10(12)/L [facility] MCV 87.9 81.2 - [facility] 95.1 FL LABORATORIES - [facility] RBC Distrib 20.0 (H) 11.8 - [facility] Width 15.6 % LABORATORIES - [facility] Platelet Count 90 (L) 150 - 450 [facility] X10(9)/L LABORATORIES - [facility] Lymphocytes 0.85 (L) 0.90 - [facility] 2.90 LABORATORIES - X10(9)/L [facility] Monocytes 0.51 0.30 - [facility] 0.90 LABORATORIES - X10(9)/L [facility] Hemoglobin 6.6 (L) 13.5 - [facility] 17.5 G/DL LABORATORIES - [facility] Hematocrit 18.1 (L) 38.8 - [facility] 50.0 % LABORATORIES - [facility] Leukocytes 3.7 3.5 - [facility] 10.5 LABORATORIES - X10(9)/L [facility] Neutrophils 2.12 1.70 - [facility] 7.00 LABORATORIES - X10(9)/L [facility] Eosinophils 0.18 0.05 - [facility] 0.50 LABORATORIES - X10(9)/L [facility] Basophils 0.02 0.00 - [facility] 0.30 LABORATORIES - X10(9)/L [facility] Specimen Anatomical Collection Method Collection Time Receive d Time (Source) Location / / Volume Laterality 06/11/2013 6:10 AM 3 6:10 VIDEO GAMES MECHANIC AM VIDEO GAMES MECHANIC Alphonse Ho APRN.Evan., M.S.N., R.N. LAB BLOOD NON ADD-ON Performing Organization Address City/State/ZIP Code Phon e Number [facility] LABORATORIES - [address] [place], [place] [address] [facility] Microbiology Reports (06/10/2013 9:46 PM VIDEO GAMES MECHANIC) Specimen Anatomical Collection Method Collection Time Receive d Time (Source) Location / / Volume Laterality 06/10/2013 9:46 PM 3 9:46 VIDEO GAMES MECHANIC PM VIDEO GAMES MECHANIC Narrative [facility] LABORATORIES - [facility] - 06/12/2013 6:33 AM VIDEO GAMES MECHANIC 10-JUN-2013 URINE, MIDSTREAM, ?SoftOrd# [id number] ?(Ordered 10-JUN-2013; Collec onel 10-JUN-2013 21:46; Received 10-JUN-2013 22:24) ?[facility] ?BACTERIAL CULTURE, AEROBIC, URI NE ? (Reported 12-JUN-2013 06:33) FINAL ?No Growth after 1 day of inc ubation. Procedure Note 10/01/2017 10-JUN-2013 URINE, MIDSTREAM, SoftOrd# [id number] (Ordered 10-JUN-2013; Collected 2012 21:46; Received 10-JUN-2013 22:24) [facility] BACTERIAL CULTURE, AEROBIC, URINE (Rep orted 12-JUN-2013 06:33) FINAL No Growth after 1 day of incubation. Radha Block APRN, C.N.P., M.S.N., R.N. LAB MICRO BIOLOGY - GENERAL ORDERABLES Performing Organization Address City/[facility]/ZIP Code Phon e Number [facility] CHNL - [address] [place], [place] [address] [facility] (ABNORMAL) Urinalysis with Microscopic (06/10/2013 9:46 PM VIDEO GAMES MECHANIC) [facility] gist Method Time Signature Glucose 7 0 - 15 MG/DL [facility] Osmolality, 24 340 150 - 1150 [facility] HR, U MOSM/KG [facility] Predicted 24 404 MG/24 H [facility] Hr Protein [facility] Predicted 128-1274 MG/24 H [facility] Range [facility] Source Midstream [facility] Appearance Bhakti Normal [facility] pH, 24 HR, U 6.2 4.5 - 8.0 [facility] Protein/Osmola 0.41 (H) <0.12 RATIO [facility] lity [facility] Protein, U 14 0 - 19 MG/DL [facility] Bilirubin . Negative [facility] Comment: No eosinophils seen; not enough cells to count accurately. Hemoglobin, QL Negative Negative [facility] Specimen Anatomical Collection Method Collection Time Receive d Time (Source) Location / / Volume Laterality 06/10/2013 9:46 PM 3 9:46 VIDEO GAMES MECHANIC PM VIDEO GAMES MECHANIC Radha Block APRN, C.N.P., M.S.N., R.N. LAB URINE ORDERABLES Performing Organization Address City/State/ZIP Code Phon e Number [facility] - [address] [address] [facility] (ABNORMAL) Microscopic Manual (06/10/2013 9:46 PM VIDEO GAMES MECHANIC) Patholo gist Method Time Signature Casts, Hyaline 1-3 /LPF [facility] Granular Casts Occas (A) /LPF [facility] Casts, Occas (A) /LPF [facility] Epithelial LABORATORIES - [facility] Renal 1-3 (A) /HPF [facility] Epithelial LABORATORIES - Cells [facility] Microscopy Abnormal [facility] WBC 1-3 1-3 [facility] (Males); LABORATORIES - 1-10 [facility] (Females) CAMPUS /HPF Specimen Anatomical Collection Method Collection Time Receive d Time (Source) Location / / Volume Laterality 06/10/2013 9:46 PM 3 9:46 VIDEO GAMES MECHANIC PM VIDEO GAMES MECHANIC Radha Block APRN, C.N.P., M.S.N., R.N. LAB URINE ORDERABLES Performing Organization Address City/State/ZIP Code Phon e Number [facility] - [address] [address] [facility] Microbiology Reports (06/10/2013 5:58 PM VIDEO GAMES MECHANIC) Specimen Anatomical Collection Method Collection Time Receive d Time (Source) Location / / Volume Laterality 06/10/2013 5:58 PM 3 5:59 VIDEO GAMES MECHANIC PM VIDEO GAMES MECHANIC Narrative [facility] - 06/15/2013 6:31 PM VIDEO GAMES MECHANIC 10-JUN-2013 BLOOD, ? SoftOrd# [id number] ?(Ordered 10-JUN-2013; Collec onel 10-JUN-2013 17:58; Received 10-JUN-2013 18:22) ?[facility] ?BACTERIA/MARRY CULTURE, BLOOD ? (Reported 15-JUN-2013 18:31) FINAL ?No growth after 5 days of in cubation. Procedure Note 10/01/2017 10-JUN-2013 BLOOD, SoftOrd# [id number] (Ordered 10-JUN-2013; Collected 2012 17:58; Received 10-JUN-2013 18:22) [facility] BACTERIA/MARRY CULTURE, BLOOD (Repor onel 15-JUN-2013 18:31) FINAL No growth after 5 days of incubation. Arley Ho APRN.N.P., M.S.N., R.N. LAB MICRO BIOLOGY - GENERAL ORDERABLES Performing Organization Address City/State/ZIP Code Phon e Number [facility] - [address] [address] 05 [facility] Microbiology Reports (06/10/2013 5:46 PM VIDEO GAMES MECHANIC) Specimen Anatomical Collection Method Collection Time Receive d Time (Source) Location / / Volume Laterality 06/10/2013 5:46 PM 3 5:47 VIDEO GAMES MECHANIC PM VIDEO GAMES MECHANIC Narrative [facility] - 06/15/2013 6:31 PM VIDEO GAMES MECHANIC 10-JUN-2013 BLOOD, ? SoftOrd# [id number] ?(Ordered 10-JUN-2013; Collec onel 10-JUN-2013 17:46; Received 10-JUN-2013 18:23) ?[facility] ?BACTERIA/MARRY CULTURE, BLOOD ? (Reported 15-JUN-2013 18:31) FINAL ?No growth after 5 days of in cubation. Procedure Note 10/01/2017 10-JUN-2013 BLOOD, SoftOrd# [id number] (Ordered 10-JUN-2013; Collected 2012 17:46; Received 10-JUN-2013 18:23) [facility] BACTERIA/MARRY CULTURE, BLOOD (Repor onel 15-JUN-2013 18:31) FINAL No growth after 5 days of incubation. Arley Ho APRN.N.P., M.S.N., R.N. LAB MICRO BIOLOGY - GENERAL ORDERABLES Performing Organization Address City/State/ZIP Code Phon e Number [facility] - [address] [place], [place] [address] [facility] Microbiology Reports (06/10/2013 5:01 PM VIDEO GAMES MECHANIC) Specimen Anatomical Collection Method Collection Time Receive d Time (Source) Location / / Volume Laterality 06/10/2013 5:01 PM 3 8:46 VIDEO GAMES MECHANIC PM VIDEO GAMES MECHANIC Narrative [facility] - 06/15/2013 2:08 PM VIDEO GAMES MECHANIC 10-JUN-2013 PERITONEAL FLUID, RIGHT ?SoftOrd# [id number] ?(Ordered 10-JUN-2013; Collec onel 10-JUN-2013 17:01; Received 10-JUN-2013 20:58) ?[facility] ?Received Bactec aerobic and Bactec anaerobic [...] 10/01/2017 10-JUN-2013 PERITONEAL FLUID, RIGHT Sof tOrd# [id number] (Ordered 10-JUN-2013; Collected 2012 17:01; Received 10-JUN-2013 20:58) [facility] Received Bactec aerobic and Bactec anae robic [...] results for this specimen type. Radha Block APRN C.N.P., M.S.N., R.N. LAB MICRO BIOLOGY - GENERAL ORDERABLES Performing Organization Address City/State/ZIP Code Phon e Number [facility] - [address] [place], [place] [address] [facility] Cell Count and Differential, Body Fluid (06/10/2013 5:01 PM VIDEO GAMES MECHANIC) [facility] Method Time Signature Total <52 SeeComment [facility] Nucleated /MCL LABORATORIES - Cells [facility] Comment: Reference Range: ? Synovial: <150 ? Peritoneal: <500 ? Pleural: <500 ? Pericardial: <500 ? Neutrophils 2 SeeComment % [facility] Comment: Reference Range: ? Synovial: <25% ? Peritoneal: <25% ? Pleural: <25% ? Pericardial: <25% ? Other Cells 13 % [facility] Other Cells Are: . [facility] Comment: Mesothelial cells Fluid Type (CC and Diff BF) . [place] [facility] Comment: Right Peritoneal-Paracentesis Gross Appearance Icteric [facility] Lymphocytes 19 Synovial: <75% % [facility][NOTE 3] S Monocytes/Macrophages 66 Synovial: <70% % M [facility] S Comment . [facility] Comment: No blasts or malignant cells se en. Reviewed by: [facility] Specimen Anatomical Collection Method Collection Time Receive d Time (Source) Location / / Volume Laterality 06/10/2013 5:01 PM 3 5:01 VIDEO GAMES MECHANIC PM VIDEO GAMES MECHANIC Radha Block APRN, C.N.P., M.S.N., R.N. LAB BODY FLUIDS AND STOOLS ORDERABLES Performing Organization Address City/State/ZIP Code Phon e Number [facility] - [address] [place], [place] [address] [facility] DX Chest AP or PA and Lateral 2 Views (06/10/2013 3:41 PM VIDEO GAMES MECHANIC) Anatomical Region Laterality Modality Chest N/A Radiographic Imaging Specimen (Source) Anatomical Collection Method Collection Time Re ceived Time Location / / Volume Laterality 06/10/2013 3:41 PM VIDEO GAMES MECHANIC Narrative 06/10/2013 3:47 PM VIDEO GAMES MECHANIC 10-Jun-2013 15:41:00 ??Exam: Chest-- 2 Views Indications: [...] MD [id number] 10-Jun-2013 15: 47 Radha Block APRN, C.N.P., M.S.N., R.N. IMG DIAGN OSTIC IMAGING PROCEDURES Prepare Red Blood Cells (06/10/2013 9:25 AM VIDEO GAMES MECHANIC) Analysis Performed At Patho logis Time Signature HXRBC # UNITS 2 [facility] TRANSFUSED LABORATORIES [facility] HXRBC UNIT INFO RBC [facility] Comment: Unit Blood Type O Pos Unit Number [id number] Component Type Red Blood Cells - -1 Le ukoreduced Issue Date/Time [id number] Unit Blood Type O Pos Unit Number [id number] Component Type Red Blood Cells - -1 Le ukoreduced Issue Date/Time [id number] Specimen (Source) Anatomical Collection Method Collection Time Re ceived Time Location / / Volume Laterality 06/10/2013 9:25 AM VIDEO GAMES MECHANIC Historical Provider BLOOD BANK PRODUCT ORDERABLE S Performing Organization Address City/State/ZIP Code Phon e Number [facility] - [address] [place], [place] [address] [facility] (ABNORMAL) Tacrolimus Level (06/10/2013 7:11 AM VIDEO GAMES MECHANIC) Patholo gist Method Time Signature Tacrolimus, B 2.2 (L) 5.0-15.0 [facility] (Trough) LABORATORIES - NG/ML [facility] Tacrolimus . [facility] Blood Date of LABORATORIES - Last Dose [facility] Comment: Not Specified Tacrolimus Time of Last Dose . M [facility] Comment: Not Specified Tacrolimus Blood Dose, mg . MG [facility] Comment: Not Specified Specimen Anatomical Collection Method Collection Time Receive d Time (Source) Location / / Volume Laterality 06/10/2013 7:11 AM 3 7:11 VIDEO GAMES MECHANIC AM VIDEO GAMES MECHANIC Leonid Gonzalez M.D. LAB BLOOD NON ADD-ON Performing Organization Address City/State/ZIP Code Phon e Number [facility] - [address] [place], [place] [address] [facility] (ABNORMAL) Tacrolimus Level (06/09/2013 9:45 AM VIDEO GAMES MECHANIC) Analysis Performed At [facility] logist Time Signature Tacrolimus Time 1999 [facility] of Last Dose LABORATORIES - [facility] Comment: Mailed In Specimen Tacrolimus Blood Dose, mg . MG [facility] Comment: Mailed In Specimen ? Not Specified ? Tacrolimus, B 2.3 (L) 5.0-15.0 (Trough) NG/ML [facility] S Comment: Mailed In Specimen Tacrolimus Blood Date of Last 06/08/2013 [facility] S Comment: Mailed In Specimen Specimen Anatomical Collection Method Collection Time Receive d Time (Source) Location / / Volume Laterality 06/09/2013 9:45 AM 3 9:45 VIDEO GAMES MECHANIC AM VIDEO GAMES MECHANIC Narrative [facility] - 06/10/2013 3:52 PM VIDEO GAMES MECHANIC Mailed In Specimen Vanessa Parra APRN, C.N.P. LAB BLOOD NON ADD-ON Performing Organization Address City/State/ZIP Code Phon e Number [facility] - [address] [place], [place] [address] [facility] documented in this encounter Visit Diagnoses Not on filedocumented in this encounter Additional Health Concerns Assessment Noted Time PHQ-9 Depression Total Score: 3 04/07/2013 9:47 AM CDT documented as of this encounter
--- OUTSIDE RECORDS SUMMARY | 2022-05-17 19:11 | XMS_ITS | Encounter Summary ---
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 capsule documented as of this encounter Plan of Treatment Upcoming Encounters Date Type Specialty Care Team Description 05/22/2022 Appointment Laboratory Medicine Angélica Granger P.A.-C. [address] [place] [phone] 05/23/2022 Clinical Admitting/Central Communication Scheduling 05/27/2022 Comprehensive Visit Orthopedic Surgery Markus Sams M.D., Ph.D. [address] [place] [phone] 05/29/2022 Office Visit Otorhinolaryngology Dex Matta APRN, C.N.P., M.S.N. [address] [place] [phone] 05/29/2022 Office Visit Otorhinolaryngology Nadeem Maradiaga, P.A.-C., M.S. [address] [place] [phone] 05/31/2022 Appointment Radiology Guilherme Matt, RASTA, P.A.-C., M.S. [address] [place] [phone] 06/05/2022 Appointment Laboratory Medicine Angélica Granger P.A.-C. [address] [place] [phone] 06/19/2022 Appointment Laboratory Medicine Angélica Granger P.A.-C. [address] [place] [phone] 07/03/2022 Appointment Laboratory Medicine Angélica Granger P.A.-C. [address] [place] [phone] 07/17/2022 Appointment Laboratory Medicine Angélica Granger P.A.-C. [address] [place] [phone] 07/31/2022 Appointment Laboratory Medicine Angélica Granger P.A.-C. [address] [place] [address] [phone] 08/14/2022 Appointment Laboratory Medicine Angélica Granger P.A.-C. [address] [place] [phone] 08/28/2022 Appointment Laboratory Medicine Angélica Granger P.A.-C. [address] [place] [phone] documented as of this encounter Visit Diagnoses Not on filedocumented in this encounter Additional Health Concerns Assessment Noted Time PHQ-9 Depression Total Score: 3 04/07/2013 9:47 AM CDT documented as of this encounter
--- OUTSIDE RECORDS SUMMARY | 2022-05-17 19:11 | XMS_ITS | Encounter Summary ---
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 capsule documented as of this encounter Plan of Treatment Upcoming Encounters Date Type Specialty Care Team Description 05/22/2022 Appointment Laboratory Medicine Angélica Granger P.A.-C. [address] [place] [phone] 05/23/2022 Clinical Admitting/Central Communication Scheduling 05/27/2022 Comprehensive Visit Orthopedic Surgery Markus aSms M.D., Ph.D. [address] [place] [phone] 05/29/2022 Office Visit Otorhinolaryngology Dex Matta APRN, C.N.P., M.S.N. [address] [place] [phone] 05/29/2022 Office Visit Otorhinolaryngology Nadeem Maradiaga, P.A.-C., M.S. [address] [place] [phone] 05/31/2022 Appointment Radiology Guilherme Matt, RASTA, P.A.-C., M.S. [address] [place] [phone] 06/05/2022 Appointment Laboratory Medicine Angélica Granger P.A.-C. [address] [place] [phone] 06/19/2022 Appointment Laboratory Medicine Angélica Granger P.A.-C. [address] [place] [phone] 07/03/2022 Appointment Laboratory Medicine Angélica Granger P.A.-C. [address] [place] [phone] 07/17/2022 Appointment Laboratory Medicine Angélica Granger P.A.-C. [address] [place] [phone] 07/31/2022 Appointment Laboratory Medicine Angélica Granger P.A.-C. [address] [place] [phone] 08/14/2022 Appointment Laboratory Medicine Angélica Granger P.A.-C. [address] [place] [address] [phone] 08/28/2022 Appointment Laboratory Medicine Angélica Granger P.A.-C. [address] [place] [address] [phone] documented as of this encounter Visit Diagnoses Not on filedocumented in this encounter Additional Health Concerns Assessment Noted Time PHQ-9 Depression Total Score: 3 04/07/2013 9:47 AM CDT documented as of this encounter
--- OUTSIDE RECORDS SUMMARY | 2022-05-17 19:11 | XMS_ITS | Encounter Summary ---
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 capsule documented as of this encounter Plan of Treatment Upcoming Encounters Date Type Specialty Care Team Description 05/22/2022 Appointment Laboratory Medicine Angélica Granger P.A.-C. [address] [place] [phone] 05/23/2022 Clinical Admitting/Central Communication Scheduling 05/27/2022 Comprehensive Visit Orthopedic Surgery Markus Sams M.D., Ph.D. [address] [place] [phone] 05/29/2022 Office Visit Otorhinolaryngology Dex Matta APRN, C.N.P., M.S.N. [address] [place] [phone] 05/29/2022 Office Visit Otorhinolaryngology Nadeem Maradiaga, P.A.-C., M.S. [address] [place] [phone] 05/31/2022 Appointment Radiology Guilherme Matt, RASTA, P.A.-C., M.S. [address] [place] [phone] 06/05/2022 Appointment Laboratory Medicine Angélica Granger P.A.-C. [address] [place] [phone] 06/19/2022 Appointment Laboratory Medicine Angélica Granger P.A.-C. [address] [place] [phone] 07/03/2022 Appointment Laboratory Medicine Angélica Granger P.A.-C. [address] [place] [phone] 07/17/2022 Appointment Laboratory Medicine Angélica Granger P.A.-C. [address] [place] [phone] 07/31/2022 Appointment Laboratory Medicine Angélica Granger P.A.-C. [address] [place] [address] [phone] 08/14/2022 Appointment Laboratory Medicine Angélica Granger P.A.-C. [address] [place] [address] [phone] 08/28/2022 Appointment Laboratory Medicine Angélica Granger P.A.-C. [address] [place] [phone] documented as of this encounter Visit Diagnoses Not on filedocumented in this encounter Additional Health Concerns Assessment Noted Time PHQ-9 Depression Total Score: 3 04/07/2013 9:47 AM CDT documented as of this encounter
--- OUTSIDE RECORDS SUMMARY | 2022-05-17 19:11 | XMS_ITS | Encounter Summary ---
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 [address] [place] [phone] 05/23/2022 Clinical Admitting/Central Communication Scheduling 05/27/2022 Comprehensive Visit Orthopedic Surgery Markus Sams M.D., Ph.D. [address] [place] [phone] 05/29/2022 Office Visit Otorhinolaryngology Dex Matta APRN, C.N.P., M.S.N. [address] [place] [phone] 05/29/2022 Office Visit Otorhinolaryngology Nadeem Maradiaga, PEdgar.Marie., M.S. [address] [place] [phone] 05/31/2022 Appointment Radiology Guilherme Matt MPAS, PMaryanne., M.S. [address] [place] [phone] 06/05/2022 Appointment Laboratory Medicine Angélica Granger P.A.-C. [address] [place] [phone] 06/19/2022 Appointment Laboratory Medicine Angélica Granger P.A.-C. [address] [place] [phone] 07/03/2022 Appointment Laboratory Medicine Angélica Granger P.A.-C. [address] [place] [phone] 07/17/2022 Appointment Laboratory Medicine Angélica Granger P.A.-C. [address] [place] [phone] 07/31/2022 Appointment Laboratory Medicine Angélica Granger P.A.-C. [address] [place] [phone] 08/14/2022 Appointment Laboratory Medicine Angélica Granger P.A.-C. [address] [place] [phone] 08/28/2022 Appointment Laboratory Medicine Angélica Granger P.A.-C. 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
--- OUTSIDE RECORDS SUMMARY | 2022-05-17 19:11 | XMS_ITS | Encounter Summary ---
:1955 Author Organization [facility] Address [address] [place] [address] Care Team Providers Name Role Phone Unavailable [...] Laboratory Medicine Angélica Granger P.A.-C. [address] [place] [phone] 05/23/2022 Clinical Admitting/Central Communication Scheduling 05/27/2022 Comprehensive Visit Orthopedic Surgery Markus Sams M.D., Ph.D. [address] [place] [phone] 05/29/2022 Office Visit Otorhinolaryngology Dex Matta APRN, C.N.P., M.S.N. [address] [place] [address] [phone] 05/29/2022 Office Visit Otorhinolaryngology Nadeem Maradiaga, P.A.-C., M.S. [address] [place] [address] [phone] 05/31/2022 Appointment Radiology Guilherme Matt MPAS, P.Murtaza.Marie., M.S. [address] [place] [phone] 06/05/2022 Appointment Laboratory Medicine Angélica Granger P.A.-C. [address] [place] [phone] 06/19/2022 Appointment Laboratory Medicine Angélica Granger P.A.-C. [address] [place] [phone] 07/03/2022 Appointment Laboratory Medicine Angélica Granger P.A.-C. [address] [place] [phone] 07/17/2022 Appointment Laboratory Medicine Angélica Granger P.A.-C. [address] [place] [phone] 07/31/2022 Appointment Laboratory Medicine Angélica Granger P.A.-C. [address] [place] [phone] 08/14/2022 Appointment Laboratory Medicine Angélica Granger P.A.-C. [address] [place] [phone] 08/28/2022 Appointment Laboratory Medicine Angélica Granger P.A.-C. [address] [place] [phone] documented as of this encounter Visit Diagnoses Not on filedocumented in this encounter Additional Health Concerns Assessment Noted Time PHQ-9 Depression Total Score: 3 04/07/2013 9:47 AM CDT documented as of this encounter
--- OUTSIDE RECORDS SUMMARY | 2022-05-17 19:11 | XMS_ITS | Encounter Summary ---
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 capsule documented as of this encounter Plan of Treatment Upcoming Encounters Date Type Specialty Care Team Description 05/22/2022 Appointment Laboratory Medicine Angélica Granger P.A.-C. [address] [place] [phone] 05/23/2022 Clinical Admitting/Central Communication Scheduling 05/27/2022 Comprehensive Visit Orthopedic Surgery Markus Sams M.D., Ph.D. [address] [place] [phone] 05/29/2022 Office Visit Otorhinolaryngology Dex Matta APRN, C.N.P., M.S.N. [address] [place] [phone] 05/29/2022 Office Visit Otorhinolaryngology Nadeem Maradiaga, P.A.-C., M.S. [address] [place] [phone] 05/31/2022 Appointment Radiology Guilherme Matt, RASTA, P.A.-C., M.S. [address] [place] [phone] 06/05/2022 Appointment Laboratory Medicine Angélica Granger P.A.-C. [address] [place] [phone] 06/19/2022 Appointment Laboratory Medicine Angélica Granger P.A.-C. [address] [place] [phone] 07/03/2022 Appointment Laboratory Medicine Angélica Granger P.A.-C. [address] [place] [phone] 07/17/2022 Appointment Laboratory Medicine Angélica Granger P.A.-C. [address] [place] [phone] 07/31/2022 Appointment Laboratory Medicine Angélica Granger P.A.-C. [address] [place] [address] [phone] 08/14/2022 Appointment Laboratory Medicine Angélica Granger P.A.-C. [address] [place] [address] [phone] 08/28/2022 Appointment Laboratory Medicine Angélica Granger P.A.-C. [address] [place] [address] [phone] documented as of this encounter Visit Diagnoses Not on filedocumented in this encounter Additional Health Concerns Assessment Noted Time PHQ-9 Depression Total Score: 3 04/07/2013 9:47 AM CDT documented as of this encounter
--- OUTSIDE RECORDS SUMMARY | 2022-05-17 19:11 | XMS_ITS | Encounter Summary ---
:1955 Author Organization [facility] Address [address] [place] [address] Care Team Providers Name Role Phone Unavailable Primary Care Provider Unavailable Encounter Details Date Type Department Care Team Description 05/24/2013 Hospital Encounter HX NO MAPPING Sera Phillips R.N ., C.C.T.C. 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 capsule documented as of this encounter Plan of Treatment Upcoming Encounters Date Type Specialty Care Team Description 05/22/2022 Appointment Laboratory Medicine Angélica Granger P.A.-C. [address] [place] [address] [phone] 05/23/2022 Clinical Admitting/Central Communication Scheduling 05/27/2022 Comprehensive Visit Orthopedic Surgery Markus Sams M.D., Ph.D. [address] [place] [phone] 05/29/2022 Office Visit Otorhinolaryngology Dex Matta APRN, C.N.P., M.S.N. [address] [place] [address] [phone] 05/29/2022 Office Visit Otorhinolaryngology Nadeem Maradiaga, P.Murtaza.-C., M.S. [address] [place] [address] [phone] 05/31/2022 Appointment Radiology Guilherme Matt MPAS, P.Murtaza.Marie., M.S. [address] [place] [phone] 06/05/2022 Appointment Laboratory Medicine Angélica Granger P.A.-C. [address] [place] [phone] 06/19/2022 Appointment Laboratory Medicine Angélica Granger P.A.-C. [address] [place] [phone] 07/03/2022 Appointment Laboratory Medicine Angélica Granger P.A.-C. [address] [place] [phone] 07/17/2022 Appointment Laboratory Medicine Angélica Granger P.A.-C. [address] [place] [address] [phone] 07/31/2022 Appointment Laboratory Medicine Angélica Granger P.A.-C. [address] [place] [phone] 08/14/2022 Appointment Laboratory Medicine Angélica Granger P.A.-C. [address] [place] [address] [phone] 08/28/2022 Appointment Laboratory Medicine Angélica Granger P.A.-C. [address] [place] [phone] documented as of this encounter Visit Diagnoses Not on filedocumented in this encounter Additional Health Concerns Assessment Noted Time PHQ-9 Depression Total Score: 3 04/07/2013 9:47 AM CDT documented as of this encounter
--- OUTSIDE RECORDS SUMMARY | 2022-05-17 19:11 | XMS_ITS | Encounter Summary ---
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 capsule documented as of this encounter Plan of Treatment Upcoming Encounters Date Type Specialty Care Team Description 05/22/2022 Appointment Laboratory Medicine Angélica Granger P.A.-C. [address] [place] [phone] 05/23/2022 Clinical Admitting/Central Communication Scheduling 05/27/2022 Comprehensive Visit Orthopedic Surgery Markus Sams M.D., Ph.D. [address] [place] [phone] 05/29/2022 Office Visit Otorhinolaryngology Dex Matta APRN, C.N.P., M.S.N. [address] [place] [phone] 05/29/2022 Office Visit Otorhinolaryngology Nadeem Maradiaga, P.A.-C., M.S. [address] [place] [phone] 05/31/2022 Appointment Radiology Guilherme Matt, RASTA, P.A.-C., M.S. [address] [place] [phone] 06/05/2022 Appointment Laboratory Medicine Angélica Granger P.A.-C. [address] [place] [phone] 06/19/2022 Appointment Laboratory Medicine Angélica Granger P.A.-C. [address] [place] [phone] 07/03/2022 Appointment Laboratory Medicine Angélica Granger P.A.-C. [address] [place] [phone] 07/17/2022 Appointment Laboratory Medicine Angélica Granger P.A.-C. [address] [place] [phone] 07/31/2022 Appointment Laboratory Medicine Angélica Granger P.A.-C. [address] [place] [address] [phone] 08/14/2022 Appointment Laboratory Medicine Angélica Granger P.A.-C. [address] [place] [address] [phone] 08/28/2022 Appointment Laboratory Medicine Angélica Granger P.A.-C. [address] [place] [address] [phone] documented as of this encounter Visit Diagnoses Not on filedocumented in this encounter Additional Health Concerns Assessment Noted Time PHQ-9 Depression Total Score: 3 04/07/2013 9:47 AM CDT documented as of this encounter
--- OUTSIDE RECORDS SUMMARY | 2022-05-17 19:11 | XMS_ITS | Encounter Summary ---
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 capsule documented as of this encounter Plan of Treatment Upcoming Encounters Date Type Specialty Care Team Description 05/22/2022 Appointment Laboratory Medicine Angélica Granger P.A.-C. [address] [place] [phone] 05/23/2022 Clinical Admitting/Central Communication Scheduling 05/27/2022 Comprehensive Visit Orthopedic Surgery Markus Sams M.D., Ph.D. [address] [place] [phone] 05/29/2022 Office Visit Otorhinolaryngology Dex Matta APRN, C.N.P., M.S.N. [address] [place] [phone] 05/29/2022 Office Visit Otorhinolaryngology Nadeem Maradiaga, P.A.-C., M.S. [address] [place] [phone] 05/31/2022 Appointment Radiology Guilherme Matt, RASTA, P.A.-C., M.S. [address] [place] [phone] 06/05/2022 Appointment Laboratory Medicine Angélica Granger P.A.-C. [address] [place] [phone] 06/19/2022 Appointment Laboratory Medicine Angélica Granger P.A.-C. [address] [place] [phone] 07/03/2022 Appointment Laboratory Medicine Angélica Granger P.A.-C. [address] [place] [phone] 07/17/2022 Appointment Laboratory Medicine Angélica Granger P.A.-C. [address] [place] [phone] 07/31/2022 Appointment Laboratory Medicine Angélica Granger P.A.-C. [address] [place] [address] [phone] 08/14/2022 Appointment Laboratory Medicine Angélica Granger P.A.-C. [address] [place] [address] [phone] 08/28/2022 Appointment Laboratory Medicine Angélica Granger P.A.-C. [address] [place] [address] [phone] documented as of this encounter Visit Diagnoses Not on filedocumented in this encounter Additional Health Concerns Assessment Noted Time PHQ-9 Depression Total Score: 3 04/07/2013 9:47 AM CDT documented as of this encounter
--- OUTSIDE RECORDS SUMMARY | 2022-05-17 19:11 | XMS_ITS | Encounter Summary ---
:1955 Author Organization [facility] Address [address] [place] [address] Care Team Providers Name Role Phone Unavailable Primary Care Provider Unavailable Encounter Details Date Type Department Care Team Description 06/03/2013 Hospital Encounter HX RST TXS LIVER Michele Grnager, P.A.-C. 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 capsule documented as of this encounter Plan of Treatment Upcoming Encounters Date Type Specialty Care Team Description 05/22/2022 Appointment Laboratory Medicine Angélica Granger, P.A.-C. [address] [place] [phone] 05/23/2022 Clinical Admitting/Central Communication Scheduling 05/27/2022 Comprehensive Visit Orthopedic Surgery Markus Sams M.D., Ph.D. [address] [place] [phone] 05/29/2022 Office Visit Otorhinolaryngology Dex Matta APRN, C.N.P., M.S.N. [address] [place] [phone] 05/29/2022 Office Visit Otorhinolaryngology Nadeem Maradiaga, P.A.-C., M.S. [address] [place] [address] [phone] 05/31/2022 Appointment Radiology Guilherme Matt MPAS, Edmundo, M.S. [address] [place] [address] [phone] 06/05/2022 Appointment Laboratory Medicine Angélica Granger P.A.-C. [address] [place] [phone] 06/19/2022 Appointment Laboratory Medicine Angélica Granger P.A.-C. [address] [place] [phone] 07/03/2022 Appointment Laboratory Medicine Angélica Granger P.A.-C. [address] [place] [phone] 07/17/2022 Appointment Laboratory Medicine Angélica Granger P.A.-C. [address] [place] [phone] 07/31/2022 Appointment Laboratory Medicine Angélica Granger P.A.-C. [address] [place] [phone] 08/14/2022 Appointment Laboratory Medicine Angélica Granger P.A.-C. [address] [place] [phone] 08/28/2022 Appointment Laboratory Medicine Angélica Granger P.A.-C. [address] [place] [phone] documented as of this encounter Visit Diagnoses Not on filedocumented in this encounter Additional Health Concerns Assessment Noted Time PHQ-9 Depression Total Score: 3 04/07/2013 9:47 AM CDT documented as of this encounter
--- OUTSIDE RECORDS SUMMARY | 2022-05-17 19:11 | XMS_ITS | Encounter Summary ---
:1955 Author Organization [facility] Address [address] [place] [address] Care Team Providers Name Role Phone Unavailable Primary Care Provider Unavailable Encounter Details Date Type Department Care Team Description 06/10/2013 Hospital Encounter HX NO MAPPING Roshan Grace M.S .N., R.N., C.C.T.C. 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 capsule documented as of this encounter Plan of Treatment Upcoming Encounters Date Type Specialty Care Team Description 05/22/2022 Appointment Laboratory Medicine Angélica Granger P.A.-C. [address] [place] [phone] 05/23/2022 Clinical Admitting/Central Communication Scheduling 05/27/2022 Comprehensive Visit Orthopedic Surgery Markus Sams M.D., Ph.D. [address] [place] [phone] 05/29/2022 Office Visit Otorhinolaryngology Dex Matta, RAMONA, C.N.P., M.S.N. [address] [place] [address] [phone] 05/29/2022 Office Visit Otorhinolaryngology Nadeem Maradiaga, P.Murtaza.-C., M.S. [address] [place] [phone] 05/31/2022 Appointment Radiology Guilherme Matt MPAS, PMaryanne., M.S. [address] [place] [phone] 06/05/2022 Appointment Laboratory Medicine Angélica Granger P.A.-C. [address] [place] [phone] 06/19/2022 Appointment Laboratory Medicine Angélica Granger P.A.-C. [address] [place] [phone] 07/03/2022 Appointment Laboratory Medicine Angélica Granger P.A.-C. [address] [place] [phone] 07/17/2022 Appointment Laboratory Medicine Angélica Granger P.A.-C. [address] [place] [phone] 07/31/2022 Appointment Laboratory Medicine Angélica Granger P.A.-C. [address] [place] [phone] 08/14/2022 Appointment Laboratory Medicine Angélica Granger P.A.-C. [address] [place] [address] [phone] 08/28/2022 Appointment Laboratory Medicine Angélica Granger P.A.-C. [address] [place] [address] [phone] documented as of this encounter Visit Diagnoses Not on filedocumented in this encounter Additional Health Concerns Assessment Noted Time PHQ-9 Depression Total Score: 3 04/07/2013 9:47 AM CDT documented as of this encounter
--- OUTSIDE RECORDS SUMMARY | 2022-05-17 19:11 | XMS_ITS | Encounter Summary ---
:[address] 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 capsule documented as of this encounter Plan of Treatment Upcoming Encounters Date Type Specialty Care Team Description 05/22/2022 Appointment Laboratory Medicine Angélica Granger P.A.-C. [address] [place] [phone] 05/23/2022 Clinical Admitting/Central Communication Scheduling 05/27/2022 Comprehensive Visit Orthopedic Surgery Markus Sams M.D., Ph.D. [address] [place] [phone] 05/29/2022 Office Visit Otorhinolaryngology Dex Matta APRN, C.N.P., M.S.N. [address] [place] [phone] 05/29/2022 Office Visit Otorhinolaryngology Nadeem Maradiaga, P.Murtaza.Marie., M.S. [address] [place] [phone] 05/31/2022 Appointment Radiology Guilherme Matt MPAS, PMaryanne., M.S. [address] [place] [phone] 06/05/2022 Appointment Laboratory Medicine Angélica Granger P.A.-C. [address] [place] [phone] 06/19/2022 Appointment Laboratory Medicine Angélica Granger P.A.-C. [address] [place] [phone] 07/03/2022 Appointment Laboratory Medicine Angélica Granger P.A.-C. [address] [place] [phone] 07/17/2022 Appointment Laboratory Medicine Angélica Granger P.A.-C. [address] [place] [phone] 07/31/2022 Appointment Laboratory Medicine Angélica Granger P.A.-C. [address] [place] [phone] 08/14/2022 Appointment Laboratory Medicine Angélica Granger P.A.-C. [address] [place] [phone] 08/28/2022 Appointment Laboratory Medicine Angélica Granger P.A.-C. [address] [place] [phone] documented as of this encounter Visit Diagnoses Not on filedocumented in this encounter Additional Health Concerns Assessment Noted Time PHQ-9 Depression Total Score: 3 04/07/2013 9:47 AM CDT documented as of this encounter
--- OUTSIDE RECORDS SUMMARY | 2022-05-17 19:11 | XMS_ITS | Encounter Summary ---
:1955 Author Organization [facility] Address [address] [place] [address] Care Team Providers Name Role Phone Unavailable Primary Care Provider Unavailable Encounter Details Date Type Department Care Team Description 06/07/2013 Hospital Encounter HX NO MAPPING Roshan Grace M.S .N., R.N., C.C.T.C. 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 capsule documented as of this encounter Plan of Treatment Upcoming Encounters Date Type Specialty Care Team Description 05/22/2022 Appointment Laboratory Medicine Angélica Granger P.A.-C. [address] [place] [phone] 05/23/2022 Clinical Admitting/Central Communication Scheduling 05/27/2022 Comprehensive Visit Orthopedic Surgery Markus Sams M.D., Ph.D. [address] [place] [phone] 05/29/2022 Office Visit Otorhinolaryngology Dex Matta, RAMONA, C.N.P., M.S.N. [address] [place] [address] [phone] 05/29/2022 Office Visit Otorhinolaryngology Nadeem Maradiaga, P.Murtaza.-C., M.S. [address] [place] [phone] 05/31/2022 Appointment Radiology Guilherme Matt MPAS, PMaryanne., M.S. [address] [place] [phone] 06/05/2022 Appointment Laboratory Medicine Angélica Granger P.A.-C. [address] [place] [phone] 06/19/2022 Appointment Laboratory Medicine Angélica Granger P.A.-C. [address] [place] [phone] 07/03/2022 Appointment Laboratory Medicine Angélica Granger P.A.-C. [address] [place] [phone] 07/17/2022 Appointment Laboratory Medicine Angélica Granger P.A.-C. [address] [place] [phone] 07/31/2022 Appointment Laboratory Medicine Angélica Granger P.A.-C. [address] [place] [phone] 08/14/2022 Appointment Laboratory Medicine Angélica Granger P.A.-C. [address] [place] [address] [phone] 08/28/2022 Appointment Laboratory Medicine Angélica Granger P.A.-C. [address] [place] [address] [phone] documented as of this encounter Visit Diagnoses Not on filedocumented in this encounter Additional Health Concerns Assessment Noted Time PHQ-9 Depression Total Score: 3 04/07/2013 9:47 AM CDT documented as of this encounter
--- OUTSIDE RECORDS SUMMARY | 2022-05-17 19:12 | XMS_ITS | Encounter Summary ---
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 [address] [place] [address] [phone] 05/23/2022 Clinical Admitting/Central Communication Scheduling 05/27/2022 Comprehensive Visit Orthopedic Surgery Markus Sams M.D., Ph.D. [address] [place] [address] [phone] 05/29/2022 Office Visit Otorhinolaryngology Dex Matta, RAMONA, C.N.P., M.S.N. [address] [place] [address] [phone] 05/29/2022 Office Visit Otorhinolaryngology Nadeem Maradiaga, P.A.-C., M.S. [address] [place] [phone] 05/31/2022 Appointment Radiology Guilherme Matt MPAS, P.Murtaza.Marie., M.S. [address] [place] [phone] 06/05/2022 Appointment Laboratory Medicine Angélica Granger P.A.-C. [address] [place] [address] [phone] 06/19/2022 Appointment Laboratory Medicine Angélica Granger P.A.-C. [address] [place] [phone] 07/03/2022 Appointment Laboratory Medicine Angélica Granger P.A.-C. [address] [place] [phone] 07/17/2022 Appointment Laboratory Medicine Angélica Granger P.A.-C. [address] [place] [address] [phone] 07/31/2022 Appointment Laboratory Medicine Angélica Granger P.A.-C. [address] [place] [phone] 08/14/2022 Appointment Laboratory Medicine Angélica Granger P.A.-C. [address] [place] [address] [phone] 08/28/2022 Appointment Laboratory Medicine Angélica Granger P.A.-C. [address] [place] [phone] documented as of this encounter Visit Diagnoses Not on filedocumented in this encounter Additional Health Concerns Assessment Noted Time PHQ-9 Depression Total Score: 3 04/07/2013 9:47 AM CDT documented as of this encounter
--- OUTSIDE RECORDS SUMMARY | 2022-05-17 19:12 | XMS_ITS | Encounter Summary ---
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 capsule documented as of this encounter Plan of Treatment Upcoming Encounters Date Type Specialty Care Team Description 05/22/2022 Appointment Laboratory Medicine Angélica Granger P.A.-C. [address] [place] [phone] 05/23/2022 Clinical Admitting/Central Communication Scheduling 05/27/2022 Comprehensive Visit Orthopedic Surgery Markus Sams M.D., Ph.D. [address] [place] [phone] 05/29/2022 Office Visit Otorhinolaryngology Dex Matta APRN, C.N.P., M.S.N. [address] [place] [phone] 05/29/2022 Office Visit Otorhinolaryngology Nadeem Maradiaga, P.A.-C., M.S. [address] [place] [phone] 05/31/2022 Appointment Radiology Guilherme Matt, ARSTA, P.A.-C., M.S. [address] [place] [phone] 06/05/2022 Appointment Laboratory Medicine Angélica Granger P.A.-C. [address] [place] [phone] 06/19/2022 Appointment Laboratory Medicine Angélica Granger P.A.-C. [address] [place] [phone] 07/03/2022 Appointment Laboratory Medicine Angélica Granger P.A.-C. [address] [place] [phone] 07/17/2022 Appointment Laboratory Medicine Angélica Granger P.A.-C. [address] [place] [phone] 07/31/2022 Appointment Laboratory Medicine Angélica Granger P.A.-C. [address] [place] [address] [phone] 08/14/2022 Appointment Laboratory Medicine Angélica Granger P.A.-C. [address] [place] [address] [phone] 08/28/2022 Appointment Laboratory Medicine Angélica Granger P.A.-C. [address] [place] [address] [phone] documented as of this encounter Visit Diagnoses Not on filedocumented in this encounter Additional Health Concerns Assessment Noted Time PHQ-9 Depression Total Score: 3 04/07/2013 9:47 AM CDT documented as of this encounter
--- OUTSIDE RECORDS SUMMARY | 2022-05-17 19:12 | XMS_ITS | Encounter Summary ---
:1955 Author Organization [facility] Address [address] [place] [address] Care Team Providers Name Role Phone Unavailable Primary Care Provider Unavailable Encounter Details Date Type Department Care Team Description 04/29/2013 Hospital Encounter HX RST RADIOLOGY Argelia Solo M.D. 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 capsule documented as of this encounter Plan of Treatment Upcoming Encounters Date Type Specialty Care Team Description 05/22/2022 Appointment Laboratory Medicine Angélica Granger P.A.-C. [address] [place] [phone] 05/23/2022 Clinical Admitting/Central Communication Scheduling 05/27/2022 Comprehensive Visit Orthopedic Surgery Markus Sams M.D., Ph.D. [address] [place] [address] [phone] 05/29/2022 Office Visit Otorhinolaryngology Dex Matta APRN, C.N.P., M.S.N. [address] [place] [address] [phone] 05/29/2022 Office Visit Otorhinolaryngology Nadeem Maradiaga, P.A.-C., M.S. [address] [place] [address] [phone] 05/31/2022 Appointment Radiology Guilherme Matt MPAS, P.A.-C., M.S. [address] [place] [phone] 06/05/2022 Appointment Laboratory Medicine Angélica Granger P.A.-C. [address] [place] [phone] 06/19/2022 Appointment Laboratory Medicine Angélica Granger P.A.-C. [address] [place] [address] [phone] 07/03/2022 Appointment Laboratory Medicine Angélica Granger P.A.-C. [address] [place] [address] [phone] 07/17/2022 Appointment Laboratory Medicine Angélica Granger P.A.-C. [address] [place] [address] [phone] 07/31/2022 Appointment Laboratory Medicine Angélica Granger P.A.-C. [address] [place] [address] [phone] 08/14/2022 Appointment Laboratory Medicine Angélica Granger P.A.-C. [address] [place] [address] [phone] 08/28/2022 Appointment Laboratory Medicine Angélica Granger P.A.-C. [address] [place] [phone] documented as of this encounter Visit Diagnoses Not on filedocumented in this encounter Additional Health Concerns Assessment Noted Time PHQ-9 Depression Total Score: 3 04/07/2013 9:47 AM CDT documented as of this encounter
--- OUTSIDE RECORDS SUMMARY | 2022-05-17 19:12 | XMS_ITS | Encounter Summary ---
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 [address] [place] [phone] 05/29/2022 Office Visit Otorhinolaryngology Dex Matta APRN, C.N.P., M.S.N. [address] [place] [phone] 05/29/2022 Office Visit Otorhinolaryngology Nadeem Maradiaga P.A.-Arley., M.S. [address] [place] [phone] 05/31/2022 Appointment Radiology Guilherme Matt MPAS, P.A.-C., M.S. [address] [place] [phone] 06/05/2022 Appointment Laboratory Medicine Angélica Granger P.A.-C. [address] [place] [phone] 06/19/2022 Appointment Laboratory Medicine Angélica Granger P.A.-C. [address] [place] [phone] 07/03/2022 Appointment Laboratory Medicine Angélica Granger P.A.-C. [address] [place] [phone] 07/17/2022 Appointment Laboratory Medicine Angélica Granger P.A.-C. [address] [place] [phone] 07/31/2022 Appointment Laboratory Medicine Angélica Granger P.A.-C. [address] [place] [phone] 08/14/2022 Appointment Laboratory Medicine Angélica Granger P.A.-C. [address] [place] [phone] 08/28/2022 Appointment Laboratory Medicine Angélica Granger P.A.-C. [address] [place] [phone] documented as of this encounter Visit Diagnoses Not on filedocumented in this encounter Additional Health Concerns Assessment Noted Time PHQ-9 Depression Total Score: 3 04/07/2013 9:47 AM CDT documented as of this encounter
--- OUTSIDE RECORDS SUMMARY | 2022-05-17 19:12 | XMS_ITS | Encounter Summary ---
:1955 Author Organization [facility] Address [address] [place] [address] Care Team Providers Name Role Phone Unavailable Primary Care Provider Unavailable Encounter Details Date Type Department Care Team Description 04/15/2013 Hospital Encounter HX NO MAPPING Christelle Muñoz, Dorene Manzo, C.C.T.C. 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 capsule documented as of this encounter Plan of Treatment Upcoming Encounters Date Type Specialty Care Team Description 05/22/2022 Appointment Laboratory Medicine Angélica Granger P.A.-C. [address] [place] [address] [phone] 05/23/2022 Clinical Admitting/Central Communication Scheduling 05/27/2022 Comprehensive Visit Orthopedic Surgery Markus Sams M.D., Ph.D. [address] [place] [phone] 05/29/2022 Office Visit Otorhinolaryngology Dex Matta APRN, C.N.P., M.S.N. [address] [place] [address] [phone] 05/29/2022 Office Visit Otorhinolaryngology Nadeem Maradiaga, P.Murtaza.-C., M.S. [address] [place] [address] [phone] 05/31/2022 Appointment Radiology Guilherme Matt MPAS, P.Murtaza.Marie., M.S. [address] [place] [phone] 06/05/2022 Appointment Laboratory Medicine Angélica Granger P.A.-C. [address] [place] [phone] 06/19/2022 Appointment Laboratory Medicine Angélica Granger P.A.-C. [address] [place] [phone] 07/03/2022 Appointment Laboratory Medicine Angélica Granger P.A.-C. [address] [place] [phone] 07/17/2022 Appointment Laboratory Medicine Angélica Granger P.A.-C. [address] [place] [address] [phone] 07/31/2022 Appointment Laboratory Medicine Angélica Granger P.A.-C. [address] [place] [phone] 08/14/2022 Appointment Laboratory Medicine Angélica Granger P.A.-C. [address] [place] [address] [phone] 08/28/2022 Appointment Laboratory Medicine Angélica Granger P.A.-C. [address] [place] [phone] documented as of this encounter Visit Diagnoses Not on filedocumented in this encounter Additional Health Concerns Assessment Noted Time PHQ-9 Depression Total Score: 3 04/07/2013 9:47 AM CDT documented as of this encounter
--- OUTSIDE RECORDS SUMMARY | 2022-05-17 19:12 | XMS_ITS | Encounter Summary ---
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 capsule documented as of this encounter Plan of Treatment Upcoming Encounters Date Type Specialty Care Team Description 05/22/2022 Appointment Laboratory Medicine Angélica Granger P.A.-C. [address] [place] [phone] 05/23/2022 Clinical Admitting/Central Communication Scheduling 05/27/2022 Comprehensive Visit Orthopedic Surgery Markus Sams M.D., Ph.D. [address] [place] [phone] 05/29/2022 Office Visit Otorhinolaryngology Dex Matta APRN, C.N.P., M.S.N. [address] [place] [phone] 05/29/2022 Office Visit Otorhinolaryngology Nadeem Maradiaga, P.A.-C., M.S. [address] [place] [phone] 05/31/2022 Appointment Radiology Guilherme Matt, RASTA, P.A.-C., M.S. [address] [place] [phone] 06/05/2022 Appointment Laboratory Medicine Angélcia Granger P.A.-C. [address] [place] [phone] 06/19/2022 Appointment Laboratory Medicine Angélica Granger P.A.-C. [address] [place] [phone] 07/03/2022 Appointment Laboratory Medicine Angélica Granger P.A.-C. [address] [place] [phone] 07/17/2022 Appointment Laboratory Medicine Angélica Granger P.A.-C. [address] [place] [phone] 07/31/2022 Appointment Laboratory Medicine Angélica Granger P.A.-C. [address] [place] [address] [phone] 08/14/2022 Appointment Laboratory Medicine Angélica Granger P.A.-C. [address] [place] [address] [phone] 08/28/2022 Appointment Laboratory Medicine Angélica Granger P.A.-C. [address] [place] [address] [phone] documented as of this encounter Visit Diagnoses Not on filedocumented in this encounter Additional Health Concerns Assessment Noted Time PHQ-9 Depression Total Score: 3 04/07/2013 9:47 AM CDT documented as of this encounter
--- OUTSIDE RECORDS SUMMARY | 2022-05-17 19:12 | XMS_ITS | Encounter Summary ---
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 [address] [place] [phone] 05/23/2022 Clinical Admitting/Central Communication Scheduling 05/27/2022 Comprehensive Visit Orthopedic Surgery Markus Sams M.D., Ph.D. [address] [place] [phone] 05/29/2022 Office Visit Otorhinolaryngology Dex Matta APRN, C.N.P., M.S.N. [address] [place] [address] [phone] 05/29/2022 Office Visit Otorhinolaryngology Nadeem Maradiaga, P.A.-C., M.S. [address] [place] [address] [phone] 05/31/2022 Appointment Radiology Guilherme Matt MPAS, P.Murtaza.-Arley., M.S. [address] [place] [phone] 06/05/2022 Appointment Laboratory Medicine Angélica Granger P.A.-C. [address] [place] [phone] 06/19/2022 Appointment Laboratory Medicine Angélica Granger P.A.-C. [address] [place] [phone] 07/03/2022 Appointment Laboratory Medicine Angélica Granger P.A.-C. [address] [place] [phone] 07/17/2022 Appointment Laboratory Medicine Angélica Granger P.A.-C. [address] [place] [phone] 07/31/2022 Appointment Laboratory Medicine Angélica Granger P.A.-C. [address] [place] [phone] 08/14/2022 Appointment Laboratory Medicine Angélica Granger P.A.-C. [address] [place] [phone] 08/28/2022 Appointment Laboratory Medicine Angélica Granger P.A.-C. [address] [place] [phone] documented as of this encounter Visit Diagnoses Not on filedocumented in this encounter Additional Health Concerns Assessment Noted Time PHQ-9 Depression Total Score: 3 02/05/2013 8:01 AM CDT documented as of this encounter
--- OUTSIDE RECORDS SUMMARY | 2022-05-17 19:12 | XMS_ITS | Encounter Summary ---
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 capsule documented as of this encounter Plan of Treatment Upcoming Encounters Date Type Specialty Care Team Description 05/22/2022 Appointment Laboratory Medicine Angélica Granger P.A.-C. [address] [place] [phone] 05/23/2022 Clinical Admitting/Central Communication Scheduling 05/27/2022 Comprehensive Visit Orthopedic Surgery Markus Sams M.D., Ph.D. [address] [place] [phone] 05/29/2022 Office Visit Otorhinolaryngology Dex Matta APRN, C.N.P., M.S.N. [address] [place] [phone] 05/29/2022 Office Visit Otorhinolaryngology Nadeem Maradiaga, P.A.-C., M.S. [address] [place] [phone] 05/31/2022 Appointment Radiology Guilherme Matt, RASTA, P.A.-C., M.S. [address] [place] [phone] 06/05/2022 Appointment Laboratory Medicine Angélica Granger P.A.-C. [address] [place] [phone] 06/19/2022 Appointment Laboratory Medicine Angélica Granger P.A.-C. [address] [place] [phone] 07/03/2022 Appointment Laboratory Medicine Angélica Granger P.A.-C. [address] [place] [phone] 07/17/2022 Appointment Laboratory Medicine Angélica Granger P.A.-C. [address] [place] [phone] 07/31/2022 Appointment Laboratory Medicine Angélica Granger P.A.-C. [address] [place] [address] [phone] 08/14/2022 Appointment Laboratory Medicine Angélica Granger P.A.-C. [address] [place] [address] [phone] 08/28/2022 Appointment Laboratory Medicine Angélica Granger P.A.-C. [address] [place] [address] [phone] documented as of this encounter Visit Diagnoses Not on filedocumented in this encounter Additional Health Concerns Assessment Noted Time PHQ-9 Depression Total Score: 3 04/07/2013 9:47 AM CDT documented as of this encounter
--- OUTSIDE RECORDS SUMMARY | 2022-05-17 19:12 | XMS_ITS | Encounter Summary ---
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 capsule documented as of this encounter Plan of Treatment Upcoming Encounters Date Type Specialty Care Team Description 05/22/2022 Appointment Laboratory Medicine Angélica Granger P.A.-C. [address] [place] [phone] 05/23/2022 Clinical Admitting/Central Communication Scheduling 05/27/2022 Comprehensive Visit Orthopedic Surgery Markus Sams M.D., Ph.D. [address] [place] [phone] 05/29/2022 Office Visit Otorhinolaryngology Dex Matta APRN, C.N.P., M.S.N. [address] [place] [phone] 05/29/2022 Office Visit Otorhinolaryngology Nadeem Maradiaga, P.A.-C., M.S. [address] [place] [phone] 05/31/2022 Appointment Radiology Guilherme Matt MPAS, P.Murtaza.-Arley., M.S. [address] [place] [phone] 06/05/2022 Appointment Laboratory Medicine Angélica Granger P.A.-C. [address] [place] [phone] 06/19/2022 Appointment Laboratory Medicine Angélica Granger P.A.-C. [address] [place] [phone] 07/03/2022 Appointment Laboratory Medicine Angélica Granger P.A.-C. [address] [place] [phone] 07/17/2022 Appointment Laboratory Medicine Angélica Granger P.A.-C. [address] [place] [phone] 07/31/2022 Appointment Laboratory Medicine Angélica Granger P.A.-C. [address] [place] [phone] 08/14/2022 Appointment Laboratory Medicine Angélica Granger P.A.-C. [address] [place] [phone] 08/28/2022 Appointment Laboratory Angélica Royal P.A.-C. [address] [place] [phone] documented as of this encounter Visit Diagnoses Not on filedocumented in this encounter Additional Health Concerns Assessment Noted Time PHQ-9 Depression Total Score: 3 02/05/2013 8:01 AM CDT documented as of this encounter
--- OUTSIDE RECORDS SUMMARY | 2022-05-17 19:12 | XMS_ITS | Encounter Summary ---
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 capsule documented as of this encounter Plan of Treatment Upcoming Encounters Date Type Specialty Care Team Description 05/22/2022 Appointment Laboratory Medicine Angélica Granger P.A.-C. [address] [place] [phone] 05/23/2022 Clinical Admitting/Central Communication Scheduling 05/27/2022 Comprehensive Visit Orthopedic Surgery Markus Sams M.D., Ph.D. [address] [place] [phone] 05/29/2022 Office Visit Otorhinolaryngology Dex Matta APRN, C.N.P., M.S.N. [address] [place] [address] [phone] 05/29/2022 Office Visit Otorhinolaryngology Nadeem Maradiaga, P.A.-C., M.S. [address] [place] [address] [phone] 05/31/2022 Appointment Radiology Guilherme Matt MPAS, P.Murtaza.-Arley., M.S. [address] [place] [phone] 06/05/2022 Appointment Laboratory Medicine Angélica Granger P.A.-C. [address] [place] [phone] 06/19/2022 Appointment Laboratory Medicine Angélica Granger P.A.-C. [address] [place] [phone] 07/03/2022 Appointment Laboratory Medicine Angélica Granger P.A.-C. [address] [place] [phone] 07/17/2022 Appointment Laboratory Medicine Angélica Granger P.A.-C. [address] [place] [phone] 07/31/2022 Appointment Laboratory Medicine Angélica Granger P.A.-C. [address] [place] [phone] 08/14/2022 Appointment Laboratory Medicine Angélica Granger P.A.-C. [address] [place] [phone] 08/28/2022 Appointment Laboratory Angélica Royal P.A.-C. [address] [place] [phone] documented as of this encounter Visit Diagnoses Not on filedocumented in this encounter Additional Health Concerns Assessment Noted Time PHQ-9 Depression Total Score: 3 04/07/2013 9:47 AM CDT documented as of this encounter
--- OUTSIDE RECORDS SUMMARY | 2022-05-17 19:12 | XMS_ITS | Encounter Summary ---
:[address] 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 capsule documented as of this encounter Plan of Treatment Upcoming Encounters Date Type Specialty Care Team Description 05/22/2022 Appointment Laboratory Medicine Angélica Granger P.A.-C. [address] [place] [phone] 05/23/2022 Clinical Admitting/Central Communication Scheduling 05/27/2022 Comprehensive Visit Orthopedic Surgery Markus Sams M.D., Ph.D. [address] [place] [phone] 05/29/2022 Office Visit Otorhinolaryngology eDx Matta APRN, C.N.P., M.S.N. [address] [place] [phone] 05/29/2022 Office Visit Otorhinolaryngology Nadeem Maradiaga, P.A.-C., M.S. [address] [place] [phone] 05/31/2022 Appointment Radiology Guilherme Matt, RASTA, P.A.-C., M.S. [address] [place] [phone] 06/05/2022 Appointment Laboratory Medicine Angélica Granger P.A.-C. [address] [place] [phone] 06/19/2022 Appointment Laboratory Medicine Angélica Granger P.A.-C. [address] [place] [phone] 07/03/2022 Appointment Laboratory Medicine Angélica Granger P.A.-C. [address] [place] [phone] 07/17/2022 Appointment Laboratory Medicine Angélica Granger P.A.-C. [address] [place] [phone] 07/31/2022 Appointment Laboratory Medicine Angélica Granger P.A.-C. [address] [place] [address] [phone] 08/14/2022 Appointment Laboratory Medicine Angélica Granger P.A.-C. [address] [place] [address] [phone] 08/28/2022 Appointment Laboratory Medicine Angélica Granger P.A.-C. [address] [place] [address] [phone] documented as of this encounter Visit Diagnoses Not on filedocumented in this encounter Additional Health Concerns Assessment Noted Time PHQ-9 Depression Total Score: 3 04/07/2013 9:47 AM CDT documented as of this encounter
--- OUTSIDE RECORDS SUMMARY | 2022-05-17 19:12 | XMS_ITS | Encounter Summary ---
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 capsule documented as of this encounter Plan of Treatment Upcoming Encounters Date Type Specialty Care Team Description 05/22/2022 Appointment Laboratory Medicine Angélica Granger P.A.-C. [address] [place] [phone] 05/23/2022 Clinical Admitting/Central Communication Scheduling 05/27/2022 Comprehensive Visit Orthopedic Surgery Markus Sams M.D., Ph.D. [address] [place] [phone] 05/29/2022 Office Visit Otorhinolaryngology Dex Matta APRN, C.N.P., M.S.N. [address] [place] [phone] 05/29/2022 Office Visit Otorhinolaryngology Nadeem Maradiaga, P.A.-C., M.S. [address] [place] [phone] 05/31/2022 Appointment Radiology Guilherme Matt, RASTA, P.A.-C., M.S. [address] [place] [phone] 06/05/2022 Appointment Laboratory Medicine Angélica Granger P.A.-C. [address] [place] [phone] 06/19/2022 Appointment Laboratory Medicine Angélica Granger P.A.-C. [address] [place] [phone] 07/03/2022 Appointment Laboratory Medicine Angélica Granger P.A.-C. [address] [place] [phone] 07/17/2022 Appointment Laboratory Medicine Angélica Granger P.A.-C. [address] [place] [phone] 07/31/2022 Appointment Laboratory Medicine Angélica Granger P.A.-C. [address] [place] [address] [phone] 08/14/2022 Appointment Laboratory Medicine Angélica Granger P.A.-C. [address] [place] [address] [phone] 08/28/2022 Appointment Laboratory Medicine Angélica Granger P.A.-C. [address] [place] [address] [phone] documented as of this encounter Visit Diagnoses Not on filedocumented in this encounter Additional Health Concerns Assessment Noted Time PHQ-9 Depression Total Score: 3 04/07/2013 9:47 AM CDT documented as of this encounter
--- OUTSIDE RECORDS SUMMARY | 2022-05-17 19:12 | XMS_ITS | Encounter Summary ---
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 capsule documented as of this encounter Plan of Treatment Upcoming Encounters Date Type Specialty Care Team Description 05/22/2022 Appointment Laboratory Medicine Angélica Granger P.A.-C. [address] [place] [phone] 05/23/2022 Clinical Admitting/Central Communication Scheduling 05/27/2022 Comprehensive Visit Orthopedic Surgery Markus Sams M.D., Ph.D. [address] [place] [phone] 05/29/2022 Office Visit Otorhinolaryngology Dex Matta APRN, C.N.P., M.S.N. [address] [place] [phone] 05/29/2022 Office Visit Otorhinolaryngology Nadeem Maradiaga, P.A.-C., M.S. [address] [place] [phone] 05/31/2022 Appointment Radiology Guilherme Matt, RASTA, P.A.-C., M.S. [address] [place] [phone] 06/05/2022 Appointment Laboratory Medicine Angélica Granger P.A.-C. [address] [place] [phone] 06/19/2022 Appointment Laboratory Medicine Angélica Granger P.A.-C. [address] [place] [phone] 07/03/2022 Appointment Laboratory Medicine Angélica Granger P.A.-C. [address] [place] [phone] 07/17/2022 Appointment Laboratory Medicine Angélica Granger P.A.-C. [address] [place] [phone] 07/31/2022 Appointment Laboratory Medicine Angélica Granger P.A.-C. [address] [place] [address] [phone] 08/14/2022 Appointment Laboratory Medicine Angélica Granger P.A.-C. [address] [place] [address] [phone] 08/28/2022 Appointment Laboratory Medicine Angélica Granger P.A.-C. [address] [place] [address] [phone] documented as of this encounter Visit Diagnoses Not on filedocumented in this encounter Additional Health Concerns Assessment Noted Time PHQ-9 Depression Total Score: 3 04/07/2013 9:47 AM CDT documented as of this encounter
--- OUTSIDE RECORDS SUMMARY | 2022-05-17 19:12 | XMS_ITS | Encounter Summary ---
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 capsule documented as of this encounter Plan of Treatment Upcoming Encounters Date Type Specialty Care Team Description 05/22/2022 Appointment Laboratory Medicine Angélica Granger P.A.-C. [address] [place] [phone] 05/23/2022 Clinical Admitting/Central Communication Scheduling 05/27/2022 Comprehensive Visit Orthopedic Surgery Markus Sams M.D., Ph.D. [address] [place] [phone] 05/29/2022 Office Visit Otorhinolaryngology Dex Matta APRN, C.N.P., M.S.N. [address] [place] [phone] 05/29/2022 Office Visit Otorhinolaryngology Nadeem Maradiaga, P.A.-C., M.S. [address] [place] [phone] 05/31/2022 Appointment Radiology Guilherme Matt, RASTA, P.A.-C., M.S. [address] [place] [phone] 06/05/2022 Appointment Laboratory Medicine Angélica Granger P.A.-C. [address] [place] [phone] 06/19/2022 Appointment Laboratory Medicine Angélica Granger P.A.-C. [address] [place] [phone] 07/03/2022 Appointment Laboratory Medicine Angélica Granger P.A.-C. [address] [place] [phone] 07/17/2022 Appointment Laboratory Medicine Angélica Granger P.A.-C. [address] [place] [phone] 07/31/2022 Appointment Laboratory Medicine Angélica Granger P.A.-C. [address] [place] [address] [phone] 08/14/2022 Appointment Laboratory Medicine Angélica Granger P.A.-C. [address] [place] [address] [phone] 08/28/2022 Appointment Laboratory Medicine Angélica Granger P.A.-C. [address] [place] [address] [phone] documented as of this encounter Visit Diagnoses Not on filedocumented in this encounter Additional Health Concerns Assessment Noted Time PHQ-9 Depression Total Score: 3 04/07/2013 9:47 AM CDT documented as of this encounter
--- OUTSIDE RECORDS SUMMARY | 2022-05-17 19:12 | XMS_ITS | Encounter Summary ---
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 capsule documented as of this encounter Plan of Treatment Upcoming Encounters Date Type Specialty Care Team Description 05/22/2022 Appointment Laboratory Medicine Angélica Granger P.A.-C. [address] [place] [phone] 05/23/2022 Clinical Admitting/Central Communication Scheduling 05/27/2022 Comprehensive Visit Orthopedic Surgery Markus Sams M.D., Ph.D. [address] [place] [phone] 05/29/2022 Office Visit Otorhinolaryngology Dex Matta APRN, C.N.P., M.S.N. [address] [place] [phone] 05/29/2022 Office Visit Otorhinolaryngology Nadeem Maradiaga, P.A.-C., M.S. [address] [place] [phone] 05/31/2022 Appointment Radiology Guilherme Matt, RASTA, P.A.-C., M.S. [address] [place] [phone] 06/05/2022 Appointment Laboratory Medicine Angélica Granger P.A.-C. [address] [place] [phone] 06/19/2022 Appointment Laboratory Medicine Angélica Granger P.A.-C. [address] [place] [phone] 07/03/2022 Appointment Laboratory Medicine Angélica Granger P.A.-C. [address] [place] [phone] 07/17/2022 Appointment Laboratory Medicine Angélica Granger P.A.-C. [address] [place] [phone] 07/31/2022 Appointment Laboratory Medicine Angélica Granger P.A.-C. [address] [place] [address] [phone] 08/14/2022 Appointment Laboratory Medicine Angélica Granger P.A.-C. [address] [place] [address] [phone] 08/28/2022 Appointment Laboratory Medicine Angélica Granger P.A.-C. [address] [place] [address] [phone] documented as of this encounter Visit Diagnoses Not on filedocumented in this encounter Additional Health Concerns Assessment Noted Time PHQ-9 Depression Total Score: 3 04/07/2013 9:47 AM CDT documented as of this encounter
--- OUTSIDE RECORDS SUMMARY | 2022-05-17 19:12 | XMS_ITS | Encounter Summary ---
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 capsule documented as of this encounter Plan of Treatment Upcoming Encounters Date Type Specialty Care Team Description 05/22/2022 Appointment Laboratory Medicine Angélica Granger P.A.-C. [address] [place] [phone] 05/23/2022 Clinical Admitting/Central Communication Scheduling 05/27/2022 Comprehensive Visit Orthopedic Surgery Markus Sams M.D., Ph.D. [address] [place] [phone] 05/29/2022 Office Visit Otorhinolaryngology Dex Matta APRN, C.N.P., M.S.N. [address] [place] [phone] 05/29/2022 Office Visit Otorhinolaryngology Nadeem Maradiaga, P.A.-C., M.S. [address] [place] [phone] 05/31/2022 Appointment Radiology Guilherme Matt, RASTA, P.A.-C., M.S. [address] [place] [phone] 06/05/2022 Appointment Laboratory Medicine Angélica Granger P.A.-C. [address] [place] [phone] 06/19/2022 Appointment Laboratory Medicine Angélica Granger P.A.-C. [address] [place] [phone] 07/03/2022 Appointment Laboratory Medicine Angélica Granger P.A.-C. [address] [place] [phone] 07/17/2022 Appointment Laboratory Medicine Angélica Granger P.A.-C. [address] [place] [phone] 07/31/2022 Appointment Laboratory Medicine Angélica Granger P.A.-C. [address] [place] [address] [phone] 08/14/2022 Appointment Laboratory Medicine Angélica Granger P.A.-C. [address] [place] [address] [phone] 08/28/2022 Appointment Laboratory Medicine Angéilca Granger P.A.-C. [address] [place] [address] [phone] documented as of this encounter Visit Diagnoses Not on filedocumented in this encounter Additional Health Concerns Assessment Noted Time PHQ-9 Depression Total Score: 3 04/07/2013 9:47 AM CDT documented as of this encounter
--- OUTSIDE RECORDS SUMMARY | 2022-05-17 19:12 | XMS_ITS | Encounter Summary ---
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 capsule documented as of this encounter Plan of Treatment Upcoming Encounters Date Type Specialty Care Team Description 05/22/2022 Appointment Laboratory Medicine Angélica Granger P.A.-C. [address] [place] [phone] 05/23/2022 Clinical Admitting/Central Communication Scheduling 05/27/2022 Comprehensive Visit Orthopedic Surgery Markus Sams M.D., Ph.D. [address] [place] [phone] 05/29/2022 Office Visit Otorhinolaryngology Dex Matta APRN, C.N.P., M.S.N. [address] [place] [phone] 05/29/2022 Office Visit Otorhinolaryngology Nadeem Maradiaga, P.A.-C., M.S. [address] [place] [phone] 05/31/2022 Appointment Radiology Guilherme Matt, RASTA, P.A.-C., M.S. [address] [place] [phone] 06/05/2022 Appointment Laboratory Medicine Angélica Granger P.A.-C. [address] [place] [phone] 06/19/2022 Appointment Laboratory Medicine Angélica Granger P.A.-C. [address] [place] [phone] 07/03/2022 Appointment Laboratory Medicine Angélica Granger P.A.-C. [address] [place] [phone] 07/17/2022 Appointment Laboratory Medicine Angélica Granger P.A.-C. [address] [place] [phone] 07/31/2022 Appointment Laboratory Medicine Angélica Granger P.A.-C. [address] [place] [address] [phone] 08/14/2022 Appointment Laboratory Medicine Angélica Granger P.A.-C. [address] [place] [address] [phone] 08/28/2022 Appointment Laboratory Medicine Angélica Granger P.A.-C. [address] [place] [address] [phone] documented as of this encounter Visit Diagnoses Not on filedocumented in this encounter Additional Health Concerns Assessment Noted Time PHQ-9 Depression Total Score: 3 04/07/2013 9:47 AM CDT documented as of this encounter
--- OUTSIDE RECORDS SUMMARY | 2022-05-17 19:12 | XMS_ITS | Encounter Summary ---
:1955 Author Organization [facility] Address [address] [place] [address] Care Team Providers Name Role Phone Unavailable Primary Care Provider Unavailable Encounter Details Date Type Department Care Team Description 04/22/2013 - Hospital Encounter HX RST INFUSION Anna Dean, 04/29/2013 THERAPY R.N. 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 [address] [place] [address] [phone] 05/23/2022 Clinical Admitting/Central Communication Scheduling 05/27/2022 Comprehensive Visit Orthopedic Surgery Markus Sams M.D., Ph.D. [address] [place] [phone] 05/29/2022 Office Visit Otorhinolaryngology Dex Matta APRN, C.N.P., M.S.N. [address] [place] [address] [phone] 05/29/2022 Office Visit Otorhinolaryngology Nadeem Maradiaga, P.Murtaza.-C., M.S. [address] [place] [phone] 05/31/2022 Appointment Radiology Guilherme Matt MPAS, P.Murtaza.-C., M.S. [address] [place] [phone] 06/05/2022 Appointment Laboratory Medicine Angélica Granger P.A.-C. [address] [place] [phone] 06/19/2022 Appointment Laboratory Medicine Angélica Granger P.A.-C. [address] [place] [phone] 07/03/2022 Appointment Laboratory Medicine Angélica Granger P.A.-C. [address] [place] [phone] 07/17/2022 Appointment Laboratory Medicine Angélica Granger P.A.-C. [address] [place] [phone] 07/31/2022 Appointment Laboratory Medicine Angélica Granger P.A.-C. [address] [place] [phone] 08/14/2022 Appointment Laboratory Medicine Angélica Granger P.A.-C. [address] [place] [phone] 08/28/2022 Appointment Laboratory Medicine Angélica Granger P.A.-C. [address] [place] [phone] documented as of this encounter Visit Diagnoses Not on filedocumented in this encounter Additional Health Concerns Assessment Noted Time PHQ-9 Depression Total Score: 3 04/07/2013 9:47 AM CDT documented as of this encounter
--- OUTSIDE RECORDS SUMMARY | 2022-05-17 19:12 | XMS_ITS | Encounter Summary ---
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 capsule documented as of this encounter Plan of Treatment Upcoming Encounters Date Type Specialty Care Team Description 05/22/2022 Appointment Laboratory Medicine Angélica Granger P.A.-C. [address] [place] [phone] 05/23/2022 Clinical Admitting/Central Communication Scheduling 05/27/2022 Comprehensive Visit Orthopedic Surgery Markus Sams M.D., Ph.D. [address] [place] [phone] 05/29/2022 Office Visit Otorhinolaryngology Dex Matta APRN, C.N.P., M.S.N. [address] [place] [phone] 05/29/2022 Office Visit Otorhinolaryngology Nadeem Maradiaga, P.A.-C., M.S. [address] [place] [phone] 05/31/2022 Appointment Radiology Guilherme Matt, RASTA, P.A.-C., M.S. [address] [place] [phone] 06/05/2022 Appointment Laboratory Medicine Angélica Granger P.A.-C. [address] [place] [phone] 06/19/2022 Appointment Laboratory Medicine Angélica Granger P.A.-C. [address] [place] [phone] 07/03/2022 Appointment Laboratory Medicine Angélica Granger P.A.-C. [address] [place] [phone] 07/17/2022 Appointment Laboratory Medicine Angélica Granger P.A.-C. [address] [place] [phone] 07/31/2022 Appointment Laboratory Medicine Angélica Granger P.A.-C. [address] [place] [address] [phone] 08/14/2022 Appointment Laboratory Medicine Angélica Granger P.A.-C. [address] [place] [address] [phone] 08/28/2022 Appointment Laboratory Medicine Angélica Granger P.A.-C. [address] [place] [address] [phone] documented as of this encounter Visit Diagnoses Not on filedocumented in this encounter Additional Health Concerns Assessment Noted Time PHQ-9 Depression Total Score: 3 04/07/2013 9:47 AM CDT documented as of this encounter
--- OUTSIDE RECORDS SUMMARY | 2022-05-17 19:12 | XMS_ITS | Encounter Summary ---
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 capsule documented as of this encounter Plan of Treatment Upcoming Encounters Date Type Specialty Care Team Description 05/22/2022 Appointment Laboratory Medicine Angélica Granger P.A.-C. [address] [place] [phone] 05/23/2022 Clinical Admitting/Central Communication Scheduling 05/27/2022 Comprehensive Visit Orthopedic Surgery Makrus Sams M.D., Ph.D. [address] [place] [phone] 05/29/2022 Office Visit Otorhinolaryngology Dex Matta APRN, C.N.P., M.S.N. [address] [place] [phone] 05/29/2022 Office Visit Otorhinolaryngology Nadeem Maardiaga, P.A.-C., M.S. [address] [place] [phone] 05/31/2022 Appointment Radiology Guilherme Matt, RASTA, P.A.-C., M.S. [address] [place] [phone] 06/05/2022 Appointment Laboratory Medicine Angélica Granger P.A.-C. [address] [place] [phone] 06/19/2022 Appointment Laboratory Medicine Angélica Granger P.A.-C. [address] [place] [phone] 07/03/2022 Appointment Laboratory Medicine Angélica Granger P.A.-C. [address] [place] [phone] 07/17/2022 Appointment Laboratory Medicine Angélica Granger P.A.-C. [address] [place] [phone] 07/31/2022 Appointment Laboratory Medicine Angélica Granger P.A.-C. [address] [place] [address] [phone] 08/14/2022 Appointment Laboratory Medicine Angélica Granger P.A.-C. [address] [place] [address] [phone] 08/28/2022 Appointment Laboratory Medicine Angélica Granger P.A.-C. [address] [place] [address] [phone] documented as of this encounter Visit Diagnoses Not on filedocumented in this encounter Additional Health Concerns Assessment Noted Time PHQ-9 Depression Total Score: 3 04/07/2013 9:47 AM CDT documented as of this encounter
--- OUTSIDE RECORDS SUMMARY | 2022-05-17 19:12 | XMS_ITS | Encounter Summary ---
:1955 Author Organization [facility] Address [address] [place] [address] Care Team Providers Name Role Phone Unavailable Primary Care Provider Unavailable Encounter Details Date Type Department Care Team Description 02/25/2013 Hospital Encounter HX NO MAPPING Clare Maloney M, R.N. 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 [address] [place] [phone] 05/23/2022 Clinical Admitting/Central Communication Scheduling 05/27/2022 Comprehensive Visit Orthopedic Surgery Markus Sams M.D., Ph.D. [address] [place] [address] [phone] 05/29/2022 Office Visit Otorhinolaryngology Dex Matta APRN, C.N.P., M.S.N. [address] [place] [phone] 05/29/2022 Office Visit Otorhinolaryngology Nadeem Maradiaga, PEdgar.Marie., M.S. [address] [place] [phone] 05/31/2022 Appointment Radiology Guilherme Matt MPAS, Jennifer., M.S. [address] [place] [phone] 06/05/2022 Appointment Laboratory Medicine Angélica Granger P.A.-C. [address] [place] [phone] 06/19/2022 Appointment Laboratory Medicine Angélica Granger P.A.-C. [address] [place] [phone] 07/03/2022 Appointment Laboratory Medicine Angélica Granger P.A.-C. [address] [place] [phone] 07/17/2022 Appointment Laboratory Medicine Angélica Granger P.A.-C. [address] [place] [phone] 07/31/2022 Appointment Laboratory Medicine Angélica Granger P.A.-C. [address] [place] [address] [phone] 08/14/2022 Appointment Laboratory Medicine Angélica Granger P.A.-C. [address] [place] [address] [phone] 08/28/2022 Appointment Laboratory Medicine Angélica Granger P.A.-C. [address] [place] [address] [phone] documented as of this encounter Visit Diagnoses Not on filedocumented in this encounter Additional Health Concerns Assessment Noted Time PHQ-9 Depression Total Score: 3 02/05/2013 8:01 AM CDT documented as of this encounter
--- OUTSIDE RECORDS SUMMARY | 2022-05-17 19:12 | XMS_ITS | Encounter Summary ---
:1955 Author Organization [facility] Address [address] [place] [address] Care Team Providers Name Role Phone Unavailable Primary Care Provider Unavailable Encounter Details Date Type Department Care Team Description 04/22/2013 Hospital Encounter HX RST TXS LIVER Jean Graff, M.B.B.S. 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 capsule documented as of this encounter Plan of Treatment Upcoming Encounters Date Type Specialty Care Team Description 05/22/2022 Appointment Laboratory Medicine Angélica Granger P.A.-C. [address] [place] [phone] 05/23/2022 Clinical Admitting/Central Communication Scheduling 05/27/2022 Comprehensive Visit Orthopedic Surgery Markus Sams M.D., Ph.D. [address] [place] [phone] 05/29/2022 Office Visit Otorhinolaryngology Dex Matta APRN, C.N.P., M.S.N. [address] [place] [address] [phone] 05/29/2022 Office Visit Otorhinolaryngology Nadeem Maradiaga, P.A.-C., M.S. [address] [place] [address] [phone] 05/31/2022 Appointment Radiology Guilherme Matt MPAS, P.A.-Arley., M.S. [address] [place] [phone] 06/05/2022 Appointment Laboratory Medicine Angélica Granger P.A.-C. [address] [place] [phone] 06/19/2022 Appointment Laboratory Medicine Angélica Granger P.A.-C. [address] [place] [phone] 07/03/2022 Appointment Laboratory Medicine Angélica Granger P.A.-C. [address] [place] [phone] 07/17/2022 Appointment Laboratory Medicine Angélica Granger P.A.-C. [address] [place] [address] [phone] 07/31/2022 Appointment Laboratory Medicine Angélica Granger P.A.-C. [address] [place] [phone] 08/14/2022 Appointment Laboratory Medicine Angélica Granger P.A.-C. [address] [place] [phone] 08/28/2022 Appointment Laboratory Medicine Angélica Granger P.A.-C. [address] [place] [phone] documented as of this encounter Visit Diagnoses Not on filedocumented in this encounter Additional Health Concerns Assessment Noted Time PHQ-9 Depression Total Score: 3 04/07/2013 9:47 AM CDT documented as of this encounter
--- OUTSIDE RECORDS SUMMARY | 2022-05-17 19:12 | XMS_ITS | Encounter Summary ---
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 capsule documented as of this encounter Plan of Treatment Upcoming Encounters Date Type Specialty Care Team Description 05/22/2022 Appointment Laboratory Medicine Angélica Granger P.A.-C. [address] [place] [phone] 05/23/2022 Clinical Admitting/Central Communication Scheduling 05/27/2022 Comprehensive Visit Orthopedic Surgery Markus Sams M.D., Ph.D. [address] [place] [phone] 05/29/2022 Office Visit Otorhinolaryngology Dex Matta APRN, C.N.P., M.S.N. [address] [place] [phone] 05/29/2022 Office Visit Otorhinolaryngology Nadeem Maradiaga, P.A.-C., M.S. [address] [place] [phone] 05/31/2022 Appointment Radiology Guilherme Matt, RASTA, P.A.-C., M.S. [address] [place] [phone] 06/05/2022 Appointment Laboratory Medicine Angélica Granger P.A.-C. [address] [place] [phone] 06/19/2022 Appointment Laboratory Medicine Angélica Granger P.A.-C. [address] [place] [phone] 07/03/2022 Appointment Laboratory Medicine Angélica Granger P.A.-C. [address] [place] [phone] 07/17/2022 Appointment Laboratory Medicine Angélica Granger P.A.-C. [address] [place] [phone] 07/31/2022 Appointment Laboratory Medicine Angélica Granger P.A.-C. [address] [place] [address] [phone] 08/14/2022 Appointment Laboratory Medicine Angélica Granger P.A.-C. [address] [place] [address] [phone] 08/28/2022 Appointment Laboratory Medicine Angélica Granger P.A.-C. [address] [place] [address] [phone] documented as of this encounter Visit Diagnoses Not on filedocumented in this encounter Additional Health Concerns Assessment Noted Time PHQ-9 Depression Total Score: 3 04/07/2013 9:47 AM CDT documented as of this encounter
--- OUTSIDE RECORDS SUMMARY | 2022-05-17 19:13 | XMS_ITS | Encounter Summary ---
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 [address] [place] [phone] 05/23/2022 Clinical Admitting/Central Communication Scheduling 05/27/2022 Comprehensive Visit Orthopedic Surgery Markus Sams M.D., Ph.D. [address] [place] [phone] 05/29/2022 Office Visit Otorhinolaryngology Dex Matta APRN, C.N.P., M.S.N. [address] [place] [phone] 05/29/2022 Office Visit Otorhinolaryngology Nadeem Maradiaga, PMaryanne., M.S. [address] [place] [phone] 05/31/2022 Appointment Radiology Guilherme Matt, RASTA, PMaryanne., M.S. [address] [place] [phone] 06/05/2022 Appointment Laboratory Medicine Angélica Granger P.A.-C. [address] [place] [phone] 06/19/2022 Appointment Laboratory Medicine Angélica Granger P.A.-C. [address] [place] [phone] 07/03/2022 Appointment Laboratory Medicine Angélica Granger P.A.-C. [address] [place] [phone] 07/17/2022 Appointment Laboratory Medicine Angélica Granger P.A.-C. [address] [place] [phone] 07/31/2022 Appointment Laboratory Medicine Angélica Granger P.A.-C. [address] [place] [phone] 08/14/2022 Appointment Laboratory Medicine Angélica Granger P.A.-C. [address] [place] [address] [phone] 08/28/2022 Appointment Laboratory Medicine Angélica Granger P.A.-C. [address] [place] [phone] documented as of this encounter Visit Diagnoses Not on filedocumented in this encounter Additional Health Concerns Assessment Noted Time PHQ-9 Depression Total Score: 8 12/04/2012 1:05 PM CDT documented as of this encounter
--- OUTSIDE RECORDS SUMMARY | 2022-05-17 19:13 | XMS_ITS | Encounter Summary ---
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 [address] [place] [phone] 05/23/2022 Clinical Admitting/Central Communication Scheduling 05/27/2022 Comprehensive Visit Orthopedic Surgery Markus Sams M.D., Ph.D. [address] [place] [phone] 05/29/2022 Office Visit Otorhinolaryngology Dex Matta APRN, C.N.P., M.S.N. [address] [place] [phone] 05/29/2022 Office Visit Otorhinolaryngology Nadeem Maradiaga, PMaryanne., M.S. [address] [place] [phone] 05/31/2022 Appointment Radiology Guilherme Matt, RASTA, PMaryanne., M.S. [address] [place] [phone] 06/05/2022 Appointment Laboratory Medicine Angélica Granger P.A.-C. [address] [place] [phone] 06/19/2022 Appointment Laboratory Medicine Angélica Granger P.A.-C. [address] [place] [phone] 07/03/2022 Appointment Laboratory Medicine Angélica Granger P.A.-C. [address] [place] [phone] 07/17/2022 Appointment Laboratory Medicine Angélica Granger P.A.-C. [address] [place] [phone] 07/31/2022 Appointment Laboratory Medicine Angélcia Granger P.A.-C. [address] [place] [phone] 08/14/2022 Appointment Laboratory Medicine Angélica Granger P.A.-C. [address] [place] [address] [phone] 08/28/2022 Appointment Laboratory Medicine Angélica Granger P.A.-C. [address] [place] [phone] documented as of this encounter Visit Diagnoses Not on filedocumented in this encounter Additional Health Concerns Assessment Noted Time PHQ-9 Depression Total Score: 6 06/18/2012 1:03 PM RECLAIMER documented as of this encounter
--- OUTSIDE RECORDS SUMMARY | 2022-05-17 19:13 | XMS_ITS | Encounter Summary ---
:1955 Author Organization [facility] Address [address] [place] [address] Care Team Providers Name Role Phone Unavailable Primary Care Provider Unavailable Encounter Details Date Type Department Care Team Description 10/27/2012 - Hospital Encounter HX RST INFUSION [facility], 11/03/2012 THERAPY Italo Azevedo R.N. 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 [address] [place] [phone] 05/23/2022 Clinical Admitting/Central Communication Scheduling 05/27/2022 Comprehensive Visit Orthopedic Surgery Markus Sams M.D., Ph.D. [address] [place] [phone] 05/29/2022 Office Visit Otorhinolaryngology Dex Matat APRN, C.N.P., M.S.N. [address] [place] [phone] 05/29/2022 Office Visit Otorhinolaryngology Nadeem Maradiaga, PEdgar.Marie., M.S. [address] [place] [phone] 05/31/2022 Appointment Radiology Guilherme Matt MPAS, PMaryanne., M.S. [address] [place] [phone] 06/05/2022 Appointment Laboratory Medicine Angélica Granger P.A.-C. [address] [place] [phone] 06/19/2022 Appointment Laboratory Medicine Angélica Granger P.A.-C. [address] [place] [phone] 07/03/2022 Appointment Laboratory Medicine Angélica Granger P.A.-C. [address] [place] [phone] 07/17/2022 Appointment Laboratory Medicine Angélica Granger P.A.-C. [address] [place] [address] [phone] 07/31/2022 Appointment Laboratory Medicine Angélica Granger P.A.-C. [address] [place] [address] [phone] 08/14/2022 Appointment Laboratory Medicine Angélica Granger P.A.-C. [address] [place] [address] [phone] 08/28/2022 Appointment Laboratory Medicine Angélica Granger P.A.-C. [address] [place] [address] [phone] documented as of this encounter Visit Diagnoses Not on filedocumented in this encounter Additional Health Concerns Assessment Noted Time PHQ-9 Depression Total Score: 6 06/18/2012 1:03 PM EVENTS ASSISTANT documented as of this encounter
--- OUTSIDE RECORDS SUMMARY | 2022-05-17 19:13 | XMS_ITS | Encounter Summary ---
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 [address] [place] [phone] 05/23/2022 Clinical Admitting/Central Communication Scheduling 05/27/2022 Comprehensive Visit Orthopedic Surgery Markus Sams M.D., Ph.D. [address] [place] [phone] 05/29/2022 Office Visit Otorhinolaryngology Dex Matta APRN, C.N.P., M.S.N. [address] [place] [phone] 05/29/2022 Office Visit Otorhinolaryngology Nadeem Maradiaga, PMaryanne., M.S. [address] [place] [phone] 05/31/2022 Appointment Radiology Guilherme Matt, RASTA, PMaryanne., M.S. [address] [place] [phone] 06/05/2022 Appointment Laboratory Medicine Angélica Granger P.A.-C. [address] [place] [phone] 06/19/2022 Appointment Laboratory Medicine Angélica Granger P.A.-C. [address] [place] [phone] 07/03/2022 Appointment Laboratory Medicine Angélica Granger P.A.-C. [address] [place] [phone] 07/17/2022 Appointment Laboratory Medicine Angélica Granger P.A.-C. [address] [place] [phone] 07/31/2022 Appointment Laboratory Medicine Angélica Granger P.A.-C. [address] [place] [phone] 08/14/2022 Appointment Laboratory Medicine Angélica Granger P.A.-C. [address] [place] [address] [phone] 08/28/2022 Appointment Laboratory Medicine Angélica Granger P.A.-C. 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
--- OUTSIDE RECORDS SUMMARY | 2022-05-17 19:13 | XMS_ITS | Encounter Summary ---
:1955 Author Organization [facility] Address [address] [place] [address] Care Team Providers Name Role Phone Unavailable Primary Care Provider Unavailable Encounter Details Date Type Department Care Team Description 09/17/2012 Hospital Encounter HX NO MAPPING Roshan Grace M.S .N., R.N., C.C.T.C. 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 [address] [place] [phone] 05/23/2022 Clinical Admitting/Central Communication Scheduling 05/27/2022 Comprehensive Visit Orthopedic Surgery Markus Sams M.D., Ph.D. [address] [place] [phone] 05/29/2022 Office Visit Otorhinolaryngology Dex Matta APRN, C.N.P., M.S.N. [address] [place] [phone] 05/29/2022 Office Visit Otorhinolaryngology Nadeem Maradiaga, P.Murtaza.-Arley., M.S. [address] [place] [phone] 05/31/2022 Appointment Radiology Guilherme Matt MPAS, P.Murtaza.Marie., M.S. [address] [place] [phone] 06/05/2022 Appointment Laboratory Medicine Angélica Granger P.A.-C. [address] [place] [phone] 06/19/2022 Appointment Laboratory Medicine Angélica Granger P.A.-C. [address] [place] [phone] 07/03/2022 Appointment Laboratory Medicine Angélica Granger P.A.-C. [address] [place] [phone] 07/17/2022 Appointment Laboratory Medicine Angélica Granger P.A.-C. [address] [place] [phone] 07/31/2022 Appointment Laboratory Medicine Angélica Granger P.A.-C. [address] [place] [phone] 08/14/2022 Appointment Laboratory Medicine Angélica Granger P.A.-C. [address] [place] [phone] 08/28/2022 Appointment Laboratory Medicine Angélica Grnager P.A.-C. 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
--- OUTSIDE RECORDS SUMMARY | 2022-05-17 19:13 | XMS_ITS | Encounter Summary ---
:1955 Author Organization [facility] Address [address] [place] [address] Care Team Providers Name Role Phone Unavailable Primary Care Provider Unavailable Encounter Details Date Type Department Care Team Description 09/21/2012 Hospital Encounter HX NO MAPPING Roshan Grace M.S .N., R.N., C.C.T.C. 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 [address] [place] [phone] 05/23/2022 Clinical Admitting/Central Communication Scheduling 05/27/2022 Comprehensive Visit Orthopedic Surgery Markus Sams M.D., Ph.D. [address] [place] [phone] 05/29/2022 Office Visit Otorhinolaryngology Dex Matta APRN, C.N.P., M.S.N. [address] [place] [phone] 05/29/2022 Office Visit Otorhinolaryngology Nadeem Maradiaga, P.Murtaza.-Arley., M.S. [address] [place] [phone] 05/31/2022 Appointment Radiology Guilherme Matt MPAS, P.Murtaza.Marie., M.S. [address] [place] [phone] 06/05/2022 Appointment Laboratory Medicine Angélica Granger P.A.-C. [address] [place] [phone] 06/19/2022 Appointment Laboratory Medicine Angélica Granger P.A.-C. [address] [place] [phone] 07/03/2022 Appointment Laboratory Medicine Angélica Granger P.A.-C. [address] [place] [phone] 07/17/2022 Appointment Laboratory Medicine Angélica Granger P.A.-C. [address] [place] [phone] 07/31/2022 Appointment Laboratory Medicine Angélica Granger P.A.-C. [address] [place] [phone] 08/14/2022 Appointment Laboratory Medicine Angélica Granger P.A.-C. [address] [place] [phone] 08/28/2022 Appointment Laboratory Medicine Angélica Granger P.A.-C. 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
--- OUTSIDE RECORDS SUMMARY | 2022-05-17 19:13 | XMS_ITS | Encounter Summary ---
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 [address] [place] [phone] 05/23/2022 Clinical Admitting/Central Communication Scheduling 05/27/2022 Comprehensive Visit Orthopedic Surgery Markus Sams M.D., Ph.D. [address] [place] [phone] 05/29/2022 Office Visit Otorhinolaryngology Dex Matta APRN, C.N.P., M.S.N. [address] [place] [phone] 05/29/2022 Office Visit Otorhinolaryngology Nadeem Maradiaga, PMaryanne., M.S. [address] [place] [phone] 05/31/2022 Appointment Radiology Guilherme Matt, RASTA, PMaryanne., M.S. [address] [place] [phone] 06/05/2022 Appointment Laboratory Medicine Angélica Granger P.A.-C. [address] [place] [phone] 06/19/2022 Appointment Laboratory Medicine Angélica Granger P.A.-C. [address] [place] [phone] 07/03/2022 Appointment Laboratory Medicine Angélica Granger P.A.-C. [address] [place] [phone] 07/17/2022 Appointment Laboratory Medicine Angélica Granger P.A.-C. [address] [place] [phone] 07/31/2022 Appointment Laboratory Medicine Angélica Granger P.A.-C. [address] [place] [phone] 08/14/2022 Appointment Laboratory Medicine Angélica Granger P.A.-C. [address] [place] [address] [phone] 08/28/2022 Appointment Laboratory Medicine Angélica Granger P.A.-C. 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
--- OUTSIDE RECORDS SUMMARY | 2022-05-17 19:13 | XMS_ITS | Encounter Summary ---
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 [address] [place] [phone] 05/23/2022 Clinical Admitting/Central Communication Scheduling 05/27/2022 Comprehensive Visit Orthopedic Surgery Markus Sams M.D., Ph.D. [address] [place] [phone] 05/29/2022 Office Visit Otorhinolaryngology Dex Matta APRN, C.N.P., M.S.N. [address] [place] [address] [phone] 05/29/2022 Office Visit Otorhinolaryngology Nadeem Maradiaga, PMaryanne., M.S. [address] [place] [phone] 05/31/2022 Appointment Radiology Guilherme Matt MPAS, PMaryanne., M.S. [address] [place] [address] [phone] 06/05/2022 Appointment Laboratory Medicine Angélica Granger P.A.-C. [address] [place] [phone] 06/19/2022 Appointment Laboratory Medicine Angélica Granger P.A.-C. [address] [place] [address] [phone] 07/03/2022 Appointment Laboratory Medicine Angélica Granger P.A.-C. [address] [place] [phone] 07/17/2022 Appointment Laboratory Medicine Angélica Granger P.A.-C. [address] [place] [phone] 07/31/2022 Appointment Laboratory Medicine Angéliac Granger P.A.-C. [address] [place] [phone] 08/14/2022 Appointment Laboratory Medicine Angélica Granger P.A.-C. [address] [place] [phone] 08/28/2022 Appointment Laboratory Angélica Royal P.A.-C. [address] [place] [phone] documented as of this encounter Visit Diagnoses Not on filedocumented in this encounter Additional Health Concerns Assessment Noted Time PHQ-9 Depression Total Score: 6 06/18/2012 1:03 PM SUPERVISOR MAINSPRING FABRICATION documented as of this encounter
--- OUTSIDE RECORDS SUMMARY | 2022-05-17 19:13 | XMS_ITS | Encounter Summary ---
:1955 Author Organization [facility] Address [address] [place] [address] Care Team Providers Name Role Phone Unavailable Primary Care Provider Unavailable Encounter Details Date Type Department Care Team Description 10/05/2012 Hospital Encounter HX NO MAPPING Roshan Grace M.S .N., R.N., C.C.T.C. 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 [address] [place] [phone] 05/23/2022 Clinical Admitting/Central Communication Scheduling 05/27/2022 Comprehensive Visit Orthopedic Surgery Markus Sams M.D., Ph.D. [address] [place] [phone] 05/29/2022 Office Visit Otorhinolaryngology Dex Matta APRN, C.N.P., M.S.N. [address] [place] [phone] 05/29/2022 Office Visit Otorhinolaryngology Nadeem Maradiaga, P.Murtaza.-Arley., M.S. [address] [place] [phone] 05/31/2022 Appointment Radiology Guilherme Matt MPAS, P.Murtaza.Marie., M.S. [address] [place] [phone] 06/05/2022 Appointment Laboratory Medicine Angélica Granger P.A.-C. [address] [place] [phone] 06/19/2022 Appointment Laboratory Medicine Angélica Granger P.A.-C. [address] [place] [phone] 07/03/2022 Appointment Laboratory Medicine Angélica Granger P.A.-C. [address] [place] [phone] 07/17/2022 Appointment Laboratory Medicine Angélica Granger P.A.-C. [address] [place] [phone] 07/31/2022 Appointment Laboratory Medicine Angélica Granger P.A.-C. [address] [place] [phone] 08/14/2022 Appointment Laboratory Medicine Angélica Granger P.A.-C. [address] [place] [phone] 08/28/2022 Appointment Laboratory Medicine Angélica Granger P.A.-C. 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
--- OUTSIDE RECORDS SUMMARY | 2022-05-17 19:13 | XMS_ITS | Encounter Summary ---
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 [address] [place] [phone] 05/23/2022 Clinical Admitting/Central Communication Scheduling 05/27/2022 Comprehensive Visit Orthopedic Surgery Markus Sams M.D., Ph.D. [address] [place] [phone] 05/29/2022 Office Visit Otorhinolaryngology Dex Matta APRN, C.N.P., M.S.N. [address] [place] [phone] 05/29/2022 Office Visit Otorhinolaryngology Nadeem Maradiaga, PMaryanne., M.S. [address] [place] [phone] 05/31/2022 Appointment Radiology Guilherme Matt, RASTA, PMaryanne., M.S. [address] [place] [phone] 06/05/2022 Appointment Laboratory Medicine Angélica Granger P.A.-C. [address] [place] [phone] 06/19/2022 Appointment Laboratory Medicine Angélica Granger P.A.-C. [address] [place] [phone] 07/03/2022 Appointment Laboratory Medicine Angélica Granger P.A.-C. [address] [place] [phone] 07/17/2022 Appointment Laboratory Medicine Angélica Granger P.A.-C. [address] [place] [phone] 07/31/2022 Appointment Laboratory Medicine Angélica Granger P.A.-C. [address] [place] [phone] 08/14/2022 Appointment Laboratory Medicine Angélica Granger P.A.-C. [address] [place] [address] [phone] 08/28/2022 Appointment Laboratory Medicine Angélica Granger P.A.-C. 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
--- OUTSIDE RECORDS SUMMARY | 2022-05-17 19:13 | XMS_ITS | Encounter Summary ---
:1955 Author Organization [facility] Address [address] [place] [address] Care Team Providers Name Role Phone Unavailable Primary Care Provider Unavailable Encounter Details Date Type Department Care Team Description 09/07/2012 Hospital Encounter HX NO MAPPING Arabella Ayers R. N., C.C.T.C. 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 [address] [place] [phone] 05/23/2022 Clinical Admitting/Central Communication Scheduling 05/27/2022 Comprehensive Visit Orthopedic Surgery Markus Sams M.D., Ph.D. [address] [place] [phone] 05/29/2022 Office Visit Otorhinolaryngology Dex Matta APRN, C.N.P., M.S.N. [address] [place] [phone] 05/29/2022 Office Visit Otorhinolaryngology Nadeem Maradiaga, P.A.-C., M.S. [address] [place] [phone] 05/31/2022 Appointment Radiology Guilherme Matt, RASTA, P.Murtaza.-Arley., M.S. [address] [place] [phone] 06/05/2022 Appointment Laboratory Medicine Angélica Granger P.A.-C. [address] [place] [phone] 06/19/2022 Appointment Laboratory Medicine Angélica Granger P.A.-C. [address] [place] [phone] 07/03/2022 Appointment Laboratory Medicine Angélica Granger P.A.-C. [address] [place] [phone] 07/17/2022 Appointment Laboratory Medicine Angélica Granger P.A.-C. [address] [place] [phone] 07/31/2022 Appointment Laboratory Medicine Angélica Granger P.A.-C. [address] [place] [phone] 08/14/2022 Appointment Laboratory Medicine Angélica Granger P.A.-C. [address] [place] [phone] 08/28/2022 Appointment Laboratory Medicine Angélica Granger P.A.-C. 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
--- OUTSIDE RECORDS SUMMARY | 2022-05-17 19:13 | XMS_ITS | Encounter Summary ---
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 [address] [place] [phone] 05/23/2022 Clinical Admitting/Central Communication Scheduling 05/27/2022 Comprehensive Visit Orthopedic Surgery Markus Sams M.D., Ph.D. [address] [place] [address] [phone] 05/29/2022 Office Visit Otorhinolaryngology Dex Matta APRN, C.N.P., M.S.N. [address] [place] [address] [phone] 05/29/2022 Office Visit Otorhinolaryngology Nadeem Maradiaga, PEdgar.Marie., M.S. [address] [place] [address] [phone] 05/31/2022 Appointment Radiology Guilherme Matt MPAS, Jennifer., M.S. [address] [place] [address] [phone] 06/05/2022 Appointment Laboratory Medicine Angélica Granger P.A.-C. [address] [place] [phone] 06/19/2022 Appointment Laboratory Medicine Angélica Granger P.A.-C. [address] [place] [phone] 07/03/2022 Appointment Laboratory Medicine Angélica Granger P.A.-C. [address] [place] [phone] 07/17/2022 Appointment Laboratory Medicine Angélica Granger P.A.-C. [address] [place] [address] [phone] 07/31/2022 Appointment Laboratory Medicine Angélica Granger P.A.-C. [address] [place] [phone] 08/14/2022 Appointment Laboratory Medicine Angélica Granger P.A.-C. [address] [place] [phone] 08/28/2022 Appointment Laboratory Medicine Angélica Granger P.A.-C. [address] [place] [phone] documented as of this encounter Visit Diagnoses Not on filedocumented in this encounter Additional Health Concerns Assessment Noted Time PHQ-9 Depression Total Score: 8 12/04/2012 1:05 PM CDT documented as of this encounter
--- OUTSIDE RECORDS SUMMARY | 2022-05-17 19:13 | XMS_ITS | Encounter Summary ---
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 [address] [place] [phone] 05/23/2022 Clinical Admitting/Central Communication Scheduling 05/27/2022 Comprehensive Visit Orthopedic Surgery Markus Sams M.D., Ph.D. [address] [place] [phone] 05/29/2022 Office Visit Otorhinolaryngology Dex Matta APRN, C.N.P., M.S.N. [address] [place] [phone] 05/29/2022 Office Visit Otorhinolaryngology Nadeem Maradiaga, PMaryanne., M.S. [address] [place] [phone] 05/31/2022 Appointment Radiology Guilherme Matt, RASTA, PMaryanne., M.S. [address] [place] [phone] 06/05/2022 Appointment Laboratory Medicine Angélica Granger P.A.-C. [address] [place] [phone] 06/19/2022 Appointment Laboratory Medicine Angélica Granger P.A.-C. [address] [place] [phone] 07/03/2022 Appointment Laboratory Medicine Angélica Granger P.A.-C. [address] [place] [phone] 07/17/2022 Appointment Laboratory Medicine Angélica Granger P.A.-C. [address] [place] [phone] 07/31/2022 Appointment Laboratory Medicine Angélica Granger P.A.-C. [address] [place] [phone] 08/14/2022 Appointment Laboratory Medicine Angélica Granger P.A.-C. [address] [place] [address] [phone] 08/28/2022 Appointment Laboratory Medicine Angélica Granger P.A.-C. [address] [place] [phone] documented as of this encounter Visit Diagnoses Not on filedocumented in this encounter Additional Health Concerns Assessment Noted Time PHQ-9 Depression Total Score: 6 06/18/2012 1:03 PM PRESSER MACHINE documented as of this encounter
--- OUTSIDE RECORDS SUMMARY | 2022-05-17 19:13 | XMS_ITS | Encounter Summary ---
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 [address] [place] [phone] 05/23/2022 Clinical Admitting/Central Communication Scheduling 05/27/2022 Comprehensive Visit Orthopedic Surgery Markus Sams M.D., Ph.D. [address] [place] [phone] 05/29/2022 Office Visit Otorhinolaryngology Dex Matta APRN, C.N.P., M.S.N. [address] [place] [address] [phone] 05/29/2022 Office Visit Otorhinolaryngology Nadeem Maradiaga, P.A.-C., M.S. [address] [place] [address] [phone] 05/31/2022 Appointment Radiology Guilherme Matt MPAS, P.Murtaza.-Arley., M.S. [address] [place] [phone] 06/05/2022 Appointment Laboratory Medicine Angélica Granger P.A.-C. [address] [place] [phone] 06/19/2022 Appointment Laboratory Medicine Angélica Granger P.A.-C. [address] [place] [phone] 07/03/2022 Appointment Laboratory Medicine Angélica Granger P.A.-C. [address] [place] [phone] 07/17/2022 Appointment Laboratory Medicine Angélica Granger P.A.-C. [address] [place] [phone] 07/31/2022 Appointment Laboratory Medicine Angélica Granger P.A.-C. [address] [place] [phone] 08/14/2022 Appointment Laboratory Medicine Angélica Granger P.A.-C. [address] [place] [phone] 08/28/2022 Appointment Laboratory Medicine Angélica Granger P.A.-C. [address] [place] [phone] documented as of this encounter Visit Diagnoses Not on filedocumented in this encounter Additional Health Concerns Assessment Noted Time PHQ-9 Depression Total Score: 6 06/18/2012 1:03 PM FILM COATER documented as of this encounter
--- OUTSIDE RECORDS SUMMARY | 2022-05-17 19:13 | XMS_ITS | Encounter Summary ---
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 [address] [place] [phone] 05/23/2022 Clinical Admitting/Central Communication Scheduling 05/27/2022 Comprehensive Visit Orthopedic Surgery Markus Sams M.D., Ph.D. [address] [place] [phone] 05/29/2022 Office Visit Otorhinolaryngology Dex Matta APRN, C.N.P., M.S.N. [address] [place] [phone] 05/29/2022 Office Visit Otorhinolaryngology Nadeem Maradiaga, PMaryanne., M.S. [address] [place] [phone] 05/31/2022 Appointment Radiology Guilherme Matt, RASTA, PMaryanne., M.S. [address] [place] [phone] 06/05/2022 Appointment Laboratory Medicine Angélica Granger P.A.-C. [address] [place] [phone] 06/19/2022 Appointment Laboratory Medicine Angélica Granger P.A.-C. [address] [place] [phone] 07/03/2022 Appointment Laboratory Medicine Angélica Granger P.A.-C. [address] [place] [phone] 07/17/2022 Appointment Laboratory Medicine Angélica Granger P.A.-C. [address] [place] [phone] 07/31/2022 Appointment Laboratory Medicine Angélica Granger P.A.-C. [address] [place] [phone] 08/14/2022 Appointment Laboratory Medicine Angélica Granger P.A.-C. [address] [place] [address] [phone] 08/28/2022 Appointment Laboratory Medicine Angélica Granger P.A.-C. 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
--- OUTSIDE RECORDS SUMMARY | 2022-05-17 19:13 | XMS_ITS | Encounter Summary ---
:1955 Author Organization [facility] Address [address] [place] [address] Care Team Providers Name Role Phone Unavailable Primary Care Provider Unavailable Encounter Details Date Type Department Care Team Description 10/02/2012 Hospital Encounter HX NO MAPPING Roshan Grace M.S .N., R.N., C.C.T.C. 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 [address] [place] [phone] 05/23/2022 Clinical Admitting/Central Communication Scheduling 05/27/2022 Comprehensive Visit Orthopedic Surgery Markus Sams M.D., Ph.D. [address] [place] [phone] 05/29/2022 Office Visit Otorhinolaryngology Dex Matta APRN, C.N.P., M.S.N. [address] [place] [phone] 05/29/2022 Office Visit Otorhinolaryngology Nadeem Maradiaga, P.Murtaza.-Arley., M.S. [address] [place] [phone] 05/31/2022 Appointment Radiology Guilherme Matt MPAS, P.Murtaza.Marie., M.S. [address] [place] [phone] 06/05/2022 Appointment Laboratory Medicine Angélica Granger P.A.-C. [address] [place] [phone] 06/19/2022 Appointment Laboratory Medicine Angélica Granger P.A.-C. [address] [place] [phone] 07/03/2022 Appointment Laboratory Medicine Angélica Granger P.A.-C. [address] [place] [phone] 07/17/2022 Appointment Laboratory Medicine Angélica Granger P.A.-C. [address] [place] [phone] 07/31/2022 Appointment Laboratory Medicine Angélica Granger P.A.-C. [address] [place] [phone] 08/14/2022 Appointment Laboratory Medicine Angélica Granger P.A.-C. [address] [place] [phone] 08/28/2022 Appointment Laboratory Medicine Angélica Granger P.A.-C. 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
--- OUTSIDE RECORDS SUMMARY | 2022-05-17 19:13 | XMS_ITS | Encounter Summary ---
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 [address] [place] [phone] 05/23/2022 Clinical Admitting/Central Communication Scheduling 05/27/2022 Comprehensive Visit Orthopedic Surgery Markus Sams M.D., Ph.D. [address] [place] [phone] 05/29/2022 Office Visit Otorhinolaryngology Dex Matta APRN, C.N.P., M.S.N. [address] [place] [phone] 05/29/2022 Office Visit Otorhinolaryngology Nadeem Maradiaga, PMaryanne., M.S. [address] [place] [phone] 05/31/2022 Appointment Radiology Guilherme Matt, RASTA, PMaryanne., M.S. [address] [place] [phone] 06/05/2022 Appointment Laboratory Medicine Angélica Granger P.A.-C. [address] [place] [phone] 06/19/2022 Appointment Laboratory Medicine Angélica Granger P.A.-C. [address] [place] [phone] 07/03/2022 Appointment Laboratory Medicine Angélica Granger P.A.-C. [address] [place] [phone] 07/17/2022 Appointment Laboratory Medicine Angélica Granger P.A.-C. [address] [place] [phone] 07/31/2022 Appointment Laboratory Medicine Angélica Granger P.A.-C. [address] [place] [phone] 08/14/2022 Appointment Laboratory Medicine Angélica Granger P.A.-C. [address] [place] [address] [phone] 08/28/2022 Appointment Laboratory Medicine Angélica Granger P.A.-C. [address] [place] [phone] documented as of this encounter Visit Diagnoses Not on filedocumented in this encounter Additional Health Concerns Assessment Noted Time PHQ-9 Depression Total Score: 8 12/04/2012 1:05 PM CDT documented as of this encounter
--- OUTSIDE RECORDS SUMMARY | 2022-05-17 19:13 | XMS_ITS | Encounter Summary ---
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 [address] [place] [phone] 05/23/2022 Clinical Admitting/Central Communication Scheduling 05/27/2022 Comprehensive Visit Orthopedic Surgery Markus Sams M.D., Ph.D. [address] [place] [phone] 05/29/2022 Office Visit Otorhinolaryngology Dex Matta APRN, C.N.P., M.S.N. [address] [place] [address] [phone] 05/29/2022 Office Visit Otorhinolaryngology Nadeem Maradiaga, P.Murtaza.Marie., M.S. [address] [place] [address] [phone] 05/31/2022 Appointment Radiology Guilherme Matt MPAS, P.Tom., M.S. [address] [place] [address] [phone] 06/05/2022 Appointment Laboratory Medicine Angélica Granger P.A.-C. [address] [place] [address] [phone] 06/19/2022 Appointment Laboratory Medicine Angélica Granger P.A.-C. [address] [place] [address] [phone] 07/03/2022 Appointment Laboratory Medicine Angélica Granger P.A.-C. [address] [place] [phone] 07/17/2022 Appointment Laboratory Medicine Angélica Granger P.A.-C. [address] [place] [phone] 07/31/2022 Appointment Laboratory Medicine Angélica Granger P.A.-C. [address] [place] [phone] 08/14/2022 Appointment Laboratory Medicine Angélica Granger P.A.-C. [address] [place] [phone] 08/28/2022 Appointment Laboratory Angélica Royal P.A.-C. 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
--- OUTSIDE RECORDS SUMMARY | 2022-05-17 19:13 | XMS_ITS | Encounter Summary ---
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 [address] [place] [phone] 05/23/2022 Clinical Admitting/Central Communication Scheduling 05/27/2022 Comprehensive Visit Orthopedic Surgery Markus Sams M.D., Ph.D. [address] [place] [phone] 05/29/2022 Office Visit Otorhinolaryngology Dex Matta APRN, C.N.P., M.S.N. [address] [place] [phone] 05/29/2022 Office Visit Otorhinolaryngology Nadeem Maradiaga, PMaryanne., M.S. [address] [place] [phone] 05/31/2022 Appointment Radiology Guilherme Matt, RASTA, PMaryanne., M.S. [address] [place] [phone] 06/05/2022 Appointment Laboratory Medicine Angélica Granger P.A.-C. [address] [place] [phone] 06/19/2022 Appointment Laboratory Medicine Angélica Granger P.A.-C. [address] [place] [phone] 07/03/2022 Appointment Laboratory Medicine Angélica Granger P.A.-C. [address] [place] [phone] 07/17/2022 Appointment Laboratory Medicine Angélica Granger P.A.-C. [address] [place] [phone] 07/31/2022 Appointment Laboratory Medicine Angélica Granger P.A.-C. [address] [place] [phone] 08/14/2022 Appointment Laboratory Medicine Angélica Granger P.A.-C. [address] [place] [address] [phone] 08/28/2022 Appointment Laboratory Medicine Angélica Granger P.A.-C. [address] [place] [phone] documented as of this encounter Visit Diagnoses Not on filedocumented in this encounter Additional Health Concerns Assessment Noted Time PHQ-9 Depression Total Score: 3 02/05/2013 8:01 AM CDT documented as of this encounter
--- OUTSIDE RECORDS SUMMARY | 2022-05-17 19:13 | XMS_ITS | Encounter Summary ---
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 [address] [place] [phone] 05/23/2022 Clinical Admitting/Central Communication Scheduling 05/27/2022 Comprehensive Visit Orthopedic Surgery Markus Sams M.D., Ph.D. [address] [place] [phone] 05/29/2022 Office Visit Otorhinolaryngology Dex Matta APRN, C.N.P., M.S.N. [address] [place] [phone] 05/29/2022 Office Visit Otorhinolaryngology Nadeem Maradiaga, PMaryanne., M.S. [address] [place] [phone] 05/31/2022 Appointment Radiology Guilherme Matt, RASTA, PMaryanne., M.S. [address] [place] [phone] 06/05/2022 Appointment Laboratory Medicine Angélica Granger P.A.-C. [address] [place] [phone] 06/19/2022 Appointment Laboratory Medicine Angélica Granger P.A.-C. [address] [place] [phone] 07/03/2022 Appointment Laboratory Medicine Angélica Granger P.A.-C. [address] [place] [phone] 07/17/2022 Appointment Laboratory Medicine Angélica Granger P.A.-C. [address] [place] [phone] 07/31/2022 Appointment Laboratory Medicine Angélica Granger P.A.-C. [address] [place] [phone] 08/14/2022 Appointment Laboratory Medicine Angélica Granger P.A.-C. [address] [place] [address] [phone] 08/28/2022 Appointment Laboratory Medicine Angélica Granger P.A.-C. [address] [place] [phone] documented as of this encounter Visit Diagnoses Not on filedocumented in this encounter Additional Health Concerns Assessment Noted Time PHQ-9 Depression Total Score: 8 12/04/2012 1:05 PM CDT documented as of this encounter
--- OUTSIDE RECORDS SUMMARY | 2022-05-17 19:13 | XMS_ITS | Encounter Summary ---
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 [address] [place] [phone] 05/23/2022 Clinical Admitting/Central Communication Scheduling 05/27/2022 Comprehensive Visit Orthopedic Surgery Markus Sams M.D., Ph.D. [address] [place] [phone] 05/29/2022 Office Visit Otorhinolaryngology Dex Matta APRN, C.N.P., M.S.N. [address] [place] [phone] 05/29/2022 Office Visit Otorhinolaryngology Nadeem Maradiaga, PMaryanne., M.S. [address] [place] [phone] 05/31/2022 Appointment Radiology Guilherme Matt, RASTA, PMaryanne., M.S. [address] [place] [phone] 06/05/2022 Appointment Laboratory Medicine Angélica Granger P.A.-C. [address] [place] [phone] 06/19/2022 Appointment Laboratory Medicine Angélica Granger P.A.-C. [address] [place] [phone] 07/03/2022 Appointment Laboratory Medicine Angélica Granger P.A.-C. [address] [place] [phone] 07/17/2022 Appointment Laboratory Medicine Angélica Granger P.A.-C. [address] [place] [phone] 07/31/2022 Appointment Laboratory Medicine Angélica Granger P.A.-C. [address] [place] [phone] 08/14/2022 Appointment Laboratory Medicine Angélica Granger P.A.-C. [address] [place] [address] [phone] 08/28/2022 Appointment Laboratory Medicine Angélica Granger P.A.-C. 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
--- OUTSIDE RECORDS SUMMARY | 2022-05-17 19:13 | XMS_ITS | Encounter Summary ---
:1955 Author Organization [facility] Address [address] [place] [address] Care Team Providers Name Role Phone Unavailable Primary Care Provider Unavailable Encounter Details Date Type Department Care Team Description 08/21/2012 - Hospital Encounter HX RST INFUSION [facility], 08/28/2012 THERAPY Italo Azevedo R.N. 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 [address] [place] [phone] 05/23/2022 Clinical Admitting/Central Communication Scheduling 05/27/2022 Comprehensive Visit Orthopedic Surgery Markus Sams M.D., Ph.D. [address] [place] [phone] 05/29/2022 Office Visit Otorhinolaryngology Dex Matta APRN, C.N.P., M.S.N. [address] [place] [phone] 05/29/2022 Office Visit Otorhinolaryngology Nadeem Maradiaga, PEdgar.Marie., M.S. [address] [place] [phone] 05/31/2022 Appointment Radiology Guilherme Matt MPAS, PMaryanne., M.S. [address] [place] [phone] 06/05/2022 Appointment Laboratory Medicine Angélica Granger P.A.-C. [address] [place] [phone] 06/19/2022 Appointment Laboratory Medicine Angélica Granger P.A.-C. [address] [place] [phone] 07/03/2022 Appointment Laboratory Medicine Angélica Granger P.A.-C. [address] [place] [phone] 07/17/2022 Appointment Laboratory Medicine Angélica Granger P.A.-C. [address] [place] [address] [phone] 07/31/2022 Appointment Laboratory Medicine Angélica Granger P.A.-C. [address] [place] [address] [phone] 08/14/2022 Appointment Laboratory Medicine Angélica Granger P.A.-C. [address] [place] [address] [phone] 08/28/2022 Appointment Laboratory Medicine Angélica Granger P.A.-C. 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
--- OUTSIDE RECORDS SUMMARY | 2022-05-17 19:13 | XMS_ITS | Encounter Summary ---
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 [address] [place] [phone] 05/23/2022 Clinical Admitting/Central Communication Scheduling 05/27/2022 Comprehensive Visit Orthopedic Surgery Markus Sams M.D., Ph.D. [address] [place] [phone] 05/29/2022 Office Visit Otorhinolaryngology Dex Matta APRN, C.N.P., M.S.N. [address] [place] [phone] 05/29/2022 Office Visit Otorhinolaryngology Nadeem Maradiaga, PEdgar.Marie., M.S. [address] [place] [phone] 05/31/2022 Appointment Radiology Guilherme Matt MPAS, PMaryanne., M.S. [address] [place] [phone] 06/05/2022 Appointment Laboratory Medicine Angélica Granger P.A.-C. [address] [place] [phone] 06/19/2022 Appointment Laboratory Medicine Angélica Granger P.A.-C. [address] [place] [phone] 07/03/2022 Appointment Laboratory Medicine Angélica Granger P.A.-C. [address] [place] [phone] 07/17/2022 Appointment Laboratory Medicine Angélica Granger P.A.-C. [address] [place] [phone] 07/31/2022 Appointment Laboratory Medicine Angélica Granger P.A.-C. [address] [place] [phone] 08/14/2022 Appointment Laboratory Medicine Angélica Granger P.A.-C. [address] [place] [phone] 08/28/2022 Appointment Laboratory Medicine Angélica Granger P.A.-C. [address] [place] [phone] documented as of this encounter Visit Diagnoses Not on filedocumented in this encounter Additional Health Concerns Infection Onset Date Last Indicated Resolved Time COVID19 Pending 12/13/2019 12/13/2019 12/14/2019 11:03 AM CDT COVID19 Pending 01/26/2020 01/27/2020 01/28/2020 12:12 AM CDT Assessment Noted Time PHQ-9 Depression Total Score: 6 06/18/2012 1:03 PM PHYSICIAN GENERAL INTERNAL MEDICINE documented as of this encounter Care Teams Tray Worker Relationship Specialty Start Date End Date Elsewhere, Pcp PCP - General Family Medicine 07/29/17 [facility] - Laboratory Medicine 04/12/[address] [phone] documented as of this encounter
--- OUTSIDE RECORDS SUMMARY | 2022-05-17 19:14 | XMS_ITS | Encounter Summary ---
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 [address] [place] [phone] 05/23/2022 Clinical Admitting/Central Communication Scheduling 05/27/2022 Comprehensive Visit Orthopedic Surgery Markus Sams M.D., Ph.D. [address] [place] [phone] 05/29/2022 Office Visit Otorhinolaryngology Dex Matta APRN, C.N.P., M.S.N. [address] [place] [phone] 05/29/2022 Office Visit Otorhinolaryngology Nadeem Maradiaga, PMaryanne., M.S. [address] [place] [phone] 05/31/2022 Appointment Radiology Guilherme Matt, RASTA, PMaryanne., M.S. [address] [place] [phone] 06/05/2022 Appointment Laboratory Medicine Angélica Granger P.A.-C. [address] [place] [phone] 06/19/2022 Appointment Laboratory Medicine Angélica Granger P.A.-C. [address] [place] [phone] 07/03/2022 Appointment Laboratory Medicine Angélica Granger P.A.-C. [address] [place] [phone] 07/17/2022 Appointment Laboratory Medicine Angélica Granger P.A.-C. [address] [place] [phone] 07/31/2022 Appointment Laboratory Medicine Angélica Granger P.A.-C. [address] [place] [phone] 08/14/2022 Appointment Laboratory Medicine Angélica Granger P.A.-C. [address] [place] [address] [phone] 08/28/2022 Appointment Laboratory Medicine Angélica Granger P.A.-C. [address] [place] [phone] documented as of this encounter Visit Diagnoses Not on filedocumented in this encounter Additional Health Concerns Assessment Noted Time PHQ-9 Depression Total Score: 5 04/10/2012 1:31 PM CDT documented as of this encounter
--- OUTSIDE RECORDS SUMMARY | 2022-05-17 19:14 | XMS_ITS | Encounter Summary ---
:1955 Author Organization [facility] Address [address] [place] [address] Care Team Providers Name Role Phone Unavailable Primary Care Provider Unavailable Encounter Details Date Type Department Care Team Description 04/27/2012 - Hospital Encounter HX RST INFUSION Sherron Freitas 05/04/2012 THERAPY K, R.N. [address] [place] [phone] Social History Tobacco Use Types Packs/Day Years [...] FRAME FITTER documented as of this encounter Last Filed Vital Signs Vital Sign Reading Time Taken Comments Blood Pressure 130/77 04/27/2012 8:47 AM TOP FRAME FITTER Pulse 40 04/27/2012 8:47 AM TOP FRAME FITTER Temperature - - Respiratory Rate - - Oxygen Saturation - - Inhaled Oxygen Concentration - - Weight 78.4 kg (172 lb 13.5 oz) 04/27/2012 8:47 AM TOP FRAME FITTER Height 182.3 cm (5' 11.77) 04/27/2012 8:47 AM TOP FRAME FITTER Body Mass Index 23.59 04/27/2012 8:47 AM TOP FRAME FITTER documented in this encounter Plan of Treatment Upcoming Encounters Date Type Specialty Care Team Description 05/22/2022 Appointment Laboratory Medicine Angélica Granger P.A.-C. [address] [place] [address] [phone] 05/23/2022 Clinical Admitting/Central Communication Scheduling 05/27/2022 Comprehensive Visit Orthopedic Surgery Markus Sams M.D., Ph.D. [address] [place] [address] [phone] 05/29/2022 Office Visit Otorhinolaryngology Dex Matta, RAMONA, C.N.P., M.S.N. [address] [place] [address] [phone] 05/29/2022 Office Visit Otorhinolaryngology Nadeem Maradiaga, P.A.-C., M.S. [address] [place] [phone] 05/31/2022 Appointment Radiology Guilherme Matt MPAS, P.Murtaza.Marie., M.S. [address] [place] [phone] 06/05/2022 Appointment Laboratory Medicine Angélica Granger P.A.-C. [address] [place] [phone] 06/19/2022 Appointment Laboratory Medicine Angélica Granger P.A.-C. [address] [place] [phone] 07/03/2022 Appointment Laboratory Medicine Angélcia Granger P.A.-C. [address] [place] [phone] 07/17/2022 Appointment Laboratory Medicine Angélica Granger P.A.-C. [address] [place] [address] [phone] 07/31/2022 Appointment Laboratory Medicine Angélica Granger P.A.-C. [address] [place] [address] [phone] 08/14/2022 Appointment Laboratory Medicine Angélica Granger P.A.-C. [address] [place] [address] [phone] 08/28/2022 Appointment Laboratory Medicine Angélica Granger P.A.-C. [address] [place] [address] [phone] documented as of this encounter Visit Diagnoses Not on filedocumented in this encounter Additional Health Concerns Assessment Noted Time PHQ-9 Depression Total Score: 5 04/10/2012 1:31 PM CDT documented as of this encounter
--- OUTSIDE RECORDS SUMMARY | 2022-05-17 19:14 | XMS_ITS | Encounter Summary ---
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 [address] [place] [phone] 05/23/2022 Clinical Admitting/Central Communication Scheduling 05/27/2022 Comprehensive Visit Orthopedic Surgery Markus Sams M.D., Ph.D. [address] [place] [address] [phone] 05/29/2022 Office Visit Otorhinolaryngology Dex Matta APRN, C.N.P., M.S.N. [address] [place] [address] [phone] 05/29/2022 Office Visit Otorhinolaryngology Nadeem Maradiaga, P.Murtaza.-C., M.S. [address] [place] [address] [phone] 05/31/2022 Appointment Radiology Guilherme Matt, RASTA, PMaryanne., M.S. [address] [place] [address] [phone] 06/05/2022 Appointment Laboratory Medicine Angélica Granger P.A.-C. [address] [place] [address] [phone] 06/19/2022 Appointment Laboratory Medicine Angélica Granger P.A.-C. [address] [place] [phone] 07/03/2022 Appointment Laboratory Medicine Angélica Granger P.A.-C. [address] [place] [phone] 07/17/2022 Appointment Laboratory Medicine Angélica Granger P.A.-C. [address] [place] [phone] 07/31/2022 Appointment Laboratory Medicine Angélica Granger P.A.-C. [address] [place] [address] [phone] 08/14/2022 Appointment Laboratory Medicine Angélica Granger P.A.-C. [address] [place] [address] [phone] 08/28/2022 Appointment Laboratory Medicine Angélica Granger P.A.-C. 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
--- OUTSIDE RECORDS SUMMARY | 2022-05-17 19:14 | XMS_ITS | Encounter Summary ---
:[address] [facility] Address [address] [place] [address] Care Team Providers Name Role Phone Unavailable Primary Care Provider Unavailable Encounter Details Date Type Department Care Team Description 07/31/2012 - Hospital Encounter HX RST INFUSION Willis Antoine 08/07/2012 THERAPY J, R.N. [address] [place] [phone] Social History Tobacco Use Types Packs/Day Years [...] at Date Recorded Male 05/16/2020 4:27 PM JTAC documented as of this encounter Plan of Treatment Upcoming Encounters Date Type Specialty Care Team Description 05/22/2022 Appointment Laboratory Medicine Angélica Granger P.A.-C. [address] [place] [phone] 05/23/2022 Clinical Admitting/Central Communication Scheduling 05/27/2022 Comprehensive Visit Orthopedic Surgery Markus Sams M.D., Ph.D. [address] [place] [address] [phone] 05/29/2022 Office Visit Otorhinolaryngology Dex Matta APRN, C.N.P., M.S.N. [address] [place] [address] [phone] 05/29/2022 Office Visit Otorhinolaryngology Nadeem Maradiaga, P.Murtaza.Marie., M.S. [address] [place] [address] [phone] 05/31/2022 Appointment Radiology Guilherme Matt MPAS, P.Murtaza.Marie., M.S. [address] [place] [phone] 06/05/2022 Appointment Laboratory Medicine Angélica Granger P.A.-C. [address] [place] [phone] 06/19/2022 Appointment Laboratory Medicine Angélica Granger P.A.-C. [address] [place] [phone] 07/03/2022 Appointment Laboratory Medicine Angélica Granger P.A.-C. [address] [place] [phone] 07/17/2022 Appointment Laboratory Medicine Angélica Granger P.A.-C. [address] [place] [phone] 07/31/2022 Appointment Laboratory Medicine Angélica Granger P.A.-C. [address] [place] [address] [phone] 08/14/2022 Appointment Laboratory Medicine Angélica Granger P.A.-C. [address] [place] [phone] 08/28/2022 Appointment Laboratory Medicine Angélica Granger P.A.-C. [address] [place] [phone] documented as of this encounter Visit Diagnoses Not on filedocumented in this encounter Additional Health Concerns Assessment Noted Time PHQ-9 Depression Total Score: 6 06/18/2012 1:03 PM JTAC documented as of this encounter
--- OUTSIDE RECORDS SUMMARY | 2022-05-17 19:14 | XMS_ITS | Encounter Summary ---
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 [address] [place] [phone] 05/23/2022 Clinical Admitting/Central Communication Scheduling 05/27/2022 Comprehensive Visit Orthopedic Surgery Markus Sams M.D., Ph.D. [address] [place] [phone] 05/29/2022 Office Visit Otorhinolaryngology Dex Matta APRN, C.N.P., M.S.N. [address] [place] [address] [phone] 05/29/2022 Office Visit Otorhinolaryngology Nadeem Maradiaga, PMaryanne., M.S. [address] [place] [address] [phone] 05/31/2022 Appointment Radiology Guilherme Matt, RASTA, PMaryanne., M.S. [address] [place] [phone] 06/05/2022 Appointment Laboratory Medicine Angélica Granger P.A.-C. [address] [place] [address] [phone] 06/19/2022 Appointment Laboratory Medicine Angélica Granger P.A.-C. [address] [place] [phone] 07/03/2022 Appointment Laboratory Medicine Angélica Granger P.A.-C. [address] [place] [phone] 07/17/2022 Appointment Laboratory Medicine Angélica Granger P.A.-C. [address] [place] [phone] 07/31/2022 Appointment Laboratory Medicine Angélica Granger P.A.-C. [address] [place] [phone] 08/14/2022 Appointment Laboratory Medicine Angélica Granger P.A.-C. [address] [place] [phone] 08/28/2022 Appointment Laboratory Medicine Angélica Granger P.A.-C. [address] [place] [phone] documented as of this encounter Visit Diagnoses Not on filedocumented in this encounter Additional Health Concerns Assessment Noted Time PHQ-9 Depression Total Score: 5 04/10/2012 1:31 PM CDT documented as of this encounter
--- OUTSIDE RECORDS SUMMARY | 2022-05-17 19:14 | XMS_ITS | Encounter Summary ---
:1955 Author Organization [facility] Address [address] [place] [address] Care Team Providers Name Role Phone Unavailable Primary Care Provider Unavailable Encounter Details Date Type Department Care Team Description 04/01/2012 Hospital Encounter HX NO MAPPING Roshan Grace M.S .N., R.N., C.C.T.C. 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 [address] [place] [phone] 05/23/2022 Clinical Admitting/Central Communication Scheduling 05/27/2022 Comprehensive Visit Orthopedic Surgery Markus Sams M.D., Ph.D. [address] [place] [phone] 05/29/2022 Office Visit Otorhinolaryngology Dex Matta APRN, C.N.P., M.S.N. [address] [place] [phone] 05/29/2022 Office Visit Otorhinolaryngology Nadeem Maradiaga, P.Murtaza.-Arley., M.S. [address] [place] [phone] 05/31/2022 Appointment Radiology Guilherme Matt MPAS, P.Murtaza.Marie., M.S. [address] [place] [phone] 06/05/2022 Appointment Laboratory Medicine Angélica Granger P.A.-C. [address] [place] [phone] 06/19/2022 Appointment Laboratory Medicine Angélica Granger P.A.-C. [address] [place] [phone] 07/03/2022 Appointment Laboratory Medicine Angélica Granger P.A.-C. [address] [place] [phone] 07/17/2022 Appointment Laboratory Medicine Angélica Granger P.A.-C. [address] [place] [phone] 07/31/2022 Appointment Laboratory Medicine Angélica Granger P.A.-C. [address] [place] [phone] 08/14/2022 Appointment Laboratory Medicine Angélica Granger P.A.-C. [address] [place] [address] [phone] 08/28/2022 Appointment Laboratory Medicine Angélica Granger P.A.-C. [address] [place] [address] [phone] documented as of this encounter Visit Diagnoses Not on filedocumented in this encounter
--- OUTSIDE RECORDS SUMMARY | 2022-05-17 19:14 | XMS_ITS | Encounter Summary ---
:1955 Author Organization [facility] Address [address] [place] [address] Care Team Providers Name Role Phone Unavailable Primary Care Provider Unavailable Encounter Details Date Type Department Care Team Description 04/10/2012 - Hospital Encounter HX RST INFUSION [facility], 04/17/2012 THERAPY Italo Azevedo R.N. 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 [address] [place] [phone] 05/23/2022 Clinical Admitting/Central Communication Scheduling 05/27/2022 Comprehensive Visit Orthopedic Surgery Markus Sams M.D., Ph.D. [address] [place] [phone] 05/29/2022 Office Visit Otorhinolaryngology Dex Matta APRN, C.N.P., M.S.N. [address] [place] [phone] 05/29/2022 Office Visit Otorhinolaryngology Nadeem Maradiaga, PEdgar.Marie., M.S. [address] [place] [phone] 05/31/2022 Appointment Radiology Guilherme Matt MPAS, PMaryanne., M.S. [address] [place] [phone] 06/05/2022 Appointment Laboratory Medicine Angélica Granger P.A.-C. [address] [place] [phone] 06/19/2022 Appointment Laboratory Medicine Angélica Granger P.A.-C. [address] [place] [phone] 07/03/2022 Appointment Laboratory Medicine Angélica Granger P.A.-C. [address] [place] [phone] 07/17/2022 Appointment Laboratory Medicine Angélica Granger P.A.-C. [address] [place] [address] [phone] 07/31/2022 Appointment Laboratory Medicine Angélica Granger P.A.-C. [address] [place] [address] [phone] 08/14/2022 Appointment Laboratory Medicine Angélica Granger P.A.-C. [address] [place] [address] [phone] 08/28/2022 Appointment Laboratory Medicine Angélica Granger P.A.-C. [address] [place] [address] [phone] documented as of this encounter Visit Diagnoses Not on filedocumented in this encounter Additional Health Concerns Assessment Noted Time PHQ-9 Depression Total Score: 5 04/10/2012 1:31 PM CDT documented as of this encounter
--- OUTSIDE RECORDS SUMMARY | 2022-05-17 19:14 | XMS_ITS | Encounter Summary ---
:1955 Author Organization [facility] Address [address] [place] [address] Care Team Providers Name Role Phone Unavailable Primary Care Provider Unavailable Encounter Details Date Type Department Care Team Description 07/03/2012 - Hospital Encounter HX RST INFUSION Tomeka Cui, 07/10/2012 THERAPY R.N. 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 [address] [place] [phone] 05/23/2022 Clinical Admitting/Central Communication Scheduling 05/27/2022 Comprehensive Visit Orthopedic Surgery Markus Sams M.D., Ph.D. [address] [place] [phone] 05/29/2022 Office Visit Otorhinolaryngology Dex Matta APRN, C.N.P., M.S.N. [address] [place] [address] [phone] 05/29/2022 Office Visit Otorhinolaryngology Nadeem Maradiaga, PMaryanne., M.S. [address] [place] [address] [phone] 05/31/2022 Appointment Radiology Guilherme Matt MPAS, Jennifer., M.S. [address] [place] [address] [phone] 06/05/2022 Appointment Laboratory Medicine Angélica Granger P.A.-C. [address] [place] [phone] 06/19/2022 Appointment Laboratory Medicine Angélica Granger P.A.-C. [address] [place] [address] [phone] 07/03/2022 Appointment Laboratory Medicine Angélica Granger P.A.-C. [address] [place] [phone] 07/17/2022 Appointment Laboratory Medicine Angélica Granger P.A.-C. [address] [place] [phone] 07/31/2022 Appointment Laboratory Medicine Angélica Granger P.A.-C. [address] [place] [phone] 08/14/2022 Appointment Laboratory Medicine Angélica Granger P.A.-C. [address] [place] [phone] 08/28/2022 Appointment Laboratory Medicine Angélica Granger P.A.-C. [address] [place] [phone] documented as of this encounter Visit Diagnoses Not on filedocumented in this encounter Additional Health Concerns Assessment Noted Time PHQ-9 Depression Total Score: 6 06/18/2012 1:03 PM CRYPTANALYST documented as of this encounter
--- OUTSIDE RECORDS SUMMARY | 2022-05-17 19:14 | XMS_ITS | Encounter Summary ---
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 [address] [place] [phone] 05/23/2022 Clinical Admitting/Central Communication Scheduling 05/27/2022 Comprehensive Visit Orthopedic Surgery Markus Sams M.D., Ph.D. [address] [place] [phone] 05/29/2022 Office Visit Otorhinolaryngology Dex Matta APRN, C.N.P., M.S.N. [address] [place] [phone] 05/29/2022 Office Visit Otorhinolaryngology Nadeem Maradiaga, PMaryanne., M.S. [address] [place] [phone] 05/31/2022 Appointment Radiology Guilherme Matt, RASTA, PMaryanne., M.S. [address] [place] [phone] 06/05/2022 Appointment Laboratory Medicine Angélica Granger P.A.-C. [address] [place] [phone] 06/19/2022 Appointment Laboratory Medicine Angélica Granger P.A.-C. [address] [place] [phone] 07/03/2022 Appointment Laboratory Medicine Angélica Granger P.A.-C. [address] [place] [phone] 07/17/2022 Appointment Laboratory Medicine Angélica Granger P.A.-C. [address] [place] [phone] 07/31/2022 Appointment Laboratory Medicine Angélica Granger P.A.-C. [address] [place] [phone] 08/14/2022 Appointment Laboratory Medicine Angélica Granger P.A.-C. [address] [place] [address] [phone] 08/28/2022 Appointment Laboratory Medicine Angélica Granger P.A.-C. [address] [place] [phone] documented as of this encounter Visit Diagnoses Not on filedocumented in this encounter Additional Health Concerns Assessment Noted Time PHQ-9 Depression Total Score: 5 04/10/2012 1:31 PM CDT documented as of this encounter
--- OUTSIDE RECORDS SUMMARY | 2022-05-17 19:14 | XMS_ITS | Encounter Summary ---
:1955 Author Organization [facility] Address [address] [place] [address] Care Team Providers Name Role Phone Unavailable Primary Care Provider Unavailable Encounter Details Date Type Department Care Team Description 05/18/2012 - Hospital Encounter HX RST INFUSION Sherron Freitas 05/25/2012 THERAPY K, R.N. 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 [address] [place] [phone] 05/23/2022 Clinical Admitting/Central Communication Scheduling 05/27/2022 Comprehensive Visit Orthopedic Surgery Markus Sams M.D., Ph.D. [address] [place] [address] [phone] 05/29/2022 Office Visit Otorhinolaryngology Dex Matta APRN, C.N.P., M.S.N. [address] [place] [address] [phone] 05/29/2022 Office Visit Otorhinolaryngology Nadeem Mardaiaga, P.Murtaza.Marie., M.S. [address] [place] [address] [phone] 05/31/2022 Appointment Radiology Guilherme Matt MPAS, P.Murtaza.Marie., M.S. [address] [place] [phone] 06/05/2022 Appointment Laboratory Medicine Angélica Granger P.A.-C. [address] [place] [phone] 06/19/2022 Appointment Laboratory Medicine Angélica Granger P.A.-C. [address] [place] [phone] 07/03/2022 Appointment Laboratory Medicine Angélica Granger P.A.-C. [address] [place] [phone] 07/17/2022 Appointment Laboratory Medicine Angélica Granger P.A.-C. [address] [place] [phone] 07/31/2022 Appointment Laboratory Medicine Angélica Granger P.A.-C. [address] [place] [address] [phone] 08/14/2022 Appointment Laboratory Medicine Angélica Granger P.A.-C. [address] [place] [phone] 08/28/2022 Appointment Laboratory Medicine Angélica Granger P.A.-C. [address] [place] [phone] documented as of this encounter Visit Diagnoses Not on filedocumented in this encounter Additional Health Concerns Assessment Noted Time PHQ-9 Depression Total Score: 5 04/10/2012 1:31 PM CDT documented as of this encounter
--- OUTSIDE RECORDS SUMMARY | 2022-05-17 19:14 | XMS_ITS | Encounter Summary ---
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 [address] [place] [phone] 05/23/2022 Clinical Admitting/Central Communication Scheduling 05/27/2022 Comprehensive Visit Orthopedic Surgery Markus Sams M.D., Ph.D. [address] [place] [phone] 05/29/2022 Office Visit Otorhinolaryngology Dex Matta APRN, C.N.P., M.S.N. [address] [place] [phone] 05/29/2022 Office Visit Otorhinolaryngology Nadeem Maradiaga, PMaryanne., M.S. [address] [place] [phone] 05/31/2022 Appointment Radiology Guilherme Matt, RASTA, PMaryanne., M.S. [address] [place] [phone] 06/05/2022 Appointment Laboratory Medicine Angélica Granger P.A.-C. [address] [place] [phone] 06/19/2022 Appointment Laboratory Medicine Angélica Granger P.A.-C. [address] [place] [phone] 07/03/2022 Appointment Laboratory Medicine Angélica Granger P.A.-C. [address] [place] [phone] 07/17/2022 Appointment Laboratory Medicine Angélica Granger P.A.-C. [address] [place] [phone] 07/31/2022 Appointment Laboratory Medicine Angélica Granger P.A.-C. [address] [place] [phone] 08/14/2022 Appointment Laboratory Medicine Angélica Granger P.A.-C. [address] [place] [address] [phone] 08/28/2022 Appointment Laboratory Medicine Angélica Granger P.A.-C. 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
--- OUTSIDE RECORDS SUMMARY | 2022-05-17 19:14 | XMS_ITS | Encounter Summary ---
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 [address] [place] [phone] 05/23/2022 Clinical Admitting/Central Communication Scheduling 05/27/2022 Comprehensive Visit Orthopedic Surgery Markus Sams M.D., Ph.D. [address] [place] [phone] 05/29/2022 Office Visit Otorhinolaryngology Dex Matta APRN, C.N.P., M.S.N. [address] [place] [phone] 05/29/2022 Office Visit Otorhinolaryngology Nadeem Maradiaga, PMaryanne., M.S. [address] [place] [phone] 05/31/2022 Appointment Radiology Guilherme Matt, RASTA, PMaryanne., M.S. [address] [place] [phone] 06/05/2022 Appointment Laboratory Medicine Angélica Granger P.A.-C. [address] [place] [phone] 06/19/2022 Appointment Laboratory Medicine Angélica Granger P.A.-C. [address] [place] [phone] 07/03/2022 Appointment Laboratory Medicine Angélica Granger P.A.-C. [address] [place] [phone] 07/17/2022 Appointment Laboratory Medicine Angélica Granger P.A.-C. [address] [place] [phone] 07/31/2022 Appointment Laboratory Medicine Angélica Granger P.A.-C. [address] [place] [phone] 08/14/2022 Appointment Laboratory Medicine Angélica Granger P.A.-C. [address] [place] [address] [phone] 08/28/2022 Appointment Laboratory Medicine Angélica Granger P.A.-C. 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
--- OUTSIDE RECORDS SUMMARY | 2022-05-17 19:14 | XMS_ITS | Encounter Summary ---
:1955 Author Organization [facility] Address [address] [place] [address] Care Team Providers Name Role Phone Unavailable Primary Care Provider Unavailable Encounter Details Date Type Department Care Team Description 06/01/2012 - Hospital Encounter HX RST INFUSION Ramiro Tijerina 06/08/2012 THERAPY T, R.N. 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 [address] [place] [phone] 05/23/2022 Clinical Admitting/Central Communication Scheduling 05/27/2022 Comprehensive Visit Orthopedic Surgery Markus Sams M.D., Ph.D. [address] [place] [address] [phone] 05/29/2022 Office Visit Otorhinolaryngology Dex Matta APRN, C.N.P., M.S.N. [address] [place] [address] [phone] 05/29/2022 Office Visit Otorhinolaryngology Nadeem Maradiaga, P.Murtaza.-Arley., M.S. [address] [place] [address] [phone] 05/31/2022 Appointment Radiology Guilherme Matt MPAS, P.Murtaza.Marie., M.S. [address] [place] [phone] 06/05/2022 Appointment Laboratory Medicine Angélica Granger P.A.-C. [address] [place] [address] [phone] 06/19/2022 Appointment Laboratory Medicine Angélica Granger P.A.-C. [address] [place] [phone] 07/03/2022 Appointment Laboratory Medicine Angélica Granger P.A.-C. [address] [place] [phone] 07/17/2022 Appointment Laboratory Medicine Angélica Granger P.A.-C. [address] [place] [phone] 07/31/2022 Appointment Laboratory Medicine Angélica Granger P.A.-C. [address] [place] [address] [phone] 08/14/2022 Appointment Laboratory Medicine Angélica Granger P.A.-C. [address] [place] [phone] 08/28/2022 Appointment Laboratory Medicine Angélica Granger P.A.-C. [address] [place] [address] [phone] documented as of this encounter Visit Diagnoses Not on filedocumented in this encounter Additional Health Concerns Assessment Noted Time PHQ-9 Depression Total Score: 5 04/10/2012 1:31 PM CDT documented as of this encounter
--- OUTSIDE RECORDS SUMMARY | 2022-05-17 19:15 | XMS_ITS | Encounter Summary ---
:1955 Author Organization [facility] Address [address] [place] [address] Care Team Providers Name Role Phone Unavailable Primary Care Provider Unavailable Encounter Details Date Type Department Care Team Description 03/17/2012 Hospital Encounter HX NO MAPPING Roshan Grace M.S .N., R.N., C.C.T.C. 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 [address] [place] [phone] 05/23/2022 Clinical Admitting/Central Communication Scheduling 05/27/2022 Comprehensive Visit Orthopedic Surgery Markus Sams M.D., Ph.D. [address] [place] [phone] 05/29/2022 Office Visit Otorhinolaryngology Dex Matta APRN, C.N.P., M.S.N. [address] [place] [phone] 05/29/2022 Office Visit Otorhinolaryngology Nadeem Maradiaga, P.Murtaza.-Arley., M.S. [address] [place] [phone] 05/31/2022 Appointment Radiology Guilherme Matt MPAS, P.Murtaza.Marie., M.S. [address] [place] [phone] 06/05/2022 Appointment Laboratory Medicine Angélica Granger P.A.-C. [address] [place] [phone] 06/19/2022 Appointment Laboratory Medicine Angélica Granger P.A.-C. [address] [place] [phone] 07/03/2022 Appointment Laboratory Medicine Angélica Granger P.A.-C. [address] [place] [phone] 07/17/2022 Appointment Laboratory Medicine Angélica Granger P.A.-C. [address] [place] [phone] 07/31/2022 Appointment Laboratory Medicine Angélica Granger P.A.-C. [address] [place] [phone] 08/14/2022 Appointment Laboratory Medicine Angélica Granger P.A.-C. [address] [place] [address] [phone] 08/28/2022 Appointment Laboratory Medicine Angélica Granger P.A.-C. [address] [place] [address] [phone] documented as of this encounter Visit Diagnoses Not on filedocumented in this encounter
--- OUTSIDE RECORDS SUMMARY | 2022-05-17 19:15 | XMS_ITS | Encounter Summary ---
:1955 Author Organization [facility] Address [address] [place] [address] Care Team Providers Name Role Phone Unavailable Primary Care Provider Unavailable Encounter Details Date Type Department Care Team Description 01/06/2012 Hospital Encounter HX NO MAPPING Roshan Grace M.S .N., R.N., C.C.T.C. 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 [address] [place] [phone] 05/23/2022 Clinical Admitting/Central Communication Scheduling 05/27/2022 Comprehensive Visit Orthopedic Surgery Markus Sams M.D., Ph.D. [address] [place] [phone] 05/29/2022 Office Visit Otorhinolaryngology Dex Matta APRN, C.N.P., M.S.N. [address] [place] [phone] 05/29/2022 Office Visit Otorhinolaryngology Nadeem Maradiaga, P.Murtaza.-Arley., M.S. [address] [place] [phone] 05/31/2022 Appointment Radiology Guilherme Matt MPAS, P.Murtaza.Marie., M.S. [address] [place] [phone] 06/05/2022 Appointment Laboratory Medicine Angélica Granger P.A.-C. [address] [place] [phone] 06/19/2022 Appointment Laboratory Medicine Angélica Granger P.A.-C. [address] [place] [phone] 07/03/2022 Appointment Laboratory Medicine Angélica Granger P.A.-C. [address] [place] [phone] 07/17/2022 Appointment Laboratory Medicine Angélica Granger P.A.-C. [address] [place] [phone] 07/31/2022 Appointment Laboratory Medicine Angélica Granger P.A.-C. [address] [place] [phone] 08/14/2022 Appointment Laboratory Medicine Angélica Granger P.A.-C. [address] [place] [address] [phone] 08/28/2022 Appointment Laboratory Medicine Angélica Granger P.A.-C. [address] [place] [address] [phone] documented as of this encounter Visit Diagnoses Not on filedocumented in this encounter
--- OUTSIDE RECORDS SUMMARY | 2022-05-17 19:15 | XMS_ITS | Encounter Summary ---
:1955 Author Organization [facility] Address [address] [place] [address] Care Team Providers Name Role Phone Unavailable Primary Care Provider Unavailable Encounter Details Date Type Department Care Team Description 02/13/2012 Hospital Encounter HX NO MAPPING Vanessa Parra, APR N, C.N.P. 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 [address] [place] [phone] 05/23/2022 Clinical Admitting/Central Communication Scheduling 05/27/2022 Comprehensive Visit Orthopedic Surgery Markus Sasm M.D., Ph.D. [address] [place] [phone] 05/29/2022 Office Visit Otorhinolaryngology Dex Matta APRN, C.N.P., M.S.N. [address] [place] [phone] 05/29/2022 Office Visit Otorhinolaryngology Nadeem Maradiaga, P.A.-C., M.S. [address] [place] [phone] 05/31/2022 Appointment Radiology Guilherme Matt MPAS, PEdgar.Marie., M.S. [address] [place] [phone] 06/05/2022 Appointment Laboratory Medicine Angélica Granger P.A.-C. [address] [place] [phone] 06/19/2022 Appointment Laboratory Medicine Angélica Granger P.A.-C. [address] [place] [address] [phone] 07/03/2022 Appointment Laboratory Medicine Angélica Granger P.A.-C. [address] [place] [phone] 07/17/2022 Appointment Laboratory Medicine Angélica Granger P.A.-C. [address] [place] [address] [phone] 07/31/2022 Appointment Laboratory Medicine Angélica Granger P.A.-C. [address] [place] [address] [phone] 08/14/2022 Appointment Laboratory Medicine Angélica Granger P.A.-C. [address] [place] [address] [phone] 08/28/2022 Appointment Laboratory Medicine Angélica Granger P.A.-C. [address] [place] [address] [phone] documented as of this encounter Visit Diagnoses Not on filedocumented in this encounter
--- OUTSIDE RECORDS SUMMARY | 2022-05-17 19:15 | XMS_ITS | Encounter Summary ---
:[address] 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 [address] [place] [phone] 05/23/2022 Clinical Admitting/Central Communication Scheduling 05/27/2022 Comprehensive Visit Orthopedic Surgery Markus Sams M.D., Ph.D. [address] [place] [phone] 05/29/2022 Office Visit Otorhinolaryngology Dex Matta APRN, C.N.P., M.S.N. [address] [place] [phone] 05/29/2022 Office Visit Otorhinolaryngology Nadeem Maradiaga, PMaryanne., M.S. [address] [place] [phone] 05/31/2022 Appointment Radiology Guilherme Matt, RASTA, PMaryanne., M.S. [address] [place] [phone] 06/05/2022 Appointment Laboratory Medicine Angélica Granger P.A.-C. [address] [place] [phone] 06/19/2022 Appointment Laboratory Medicine Angélica Granger P.A.-C. [address] [place] [phone] 07/03/2022 Appointment Laboratory Medicine Angélica Granger P.A.-C. [address] [place] [phone] 07/17/2022 Appointment Laboratory Medicine Angélica Granger P.A.-C. [address] [place] [phone] 07/31/2022 Appointment Laboratory Medicine Angélica Granger P.A.-C. [address] [place] [address] [phone] 08/14/2022 Appointment Laboratory Medicine Angélica Granger P.A.-C. [address] [place] [address] [phone] 08/28/2022 Appointment Laboratory Medicine Angélica Granger P.A.-C. [address] [place] [address] [phone] documented as of this encounter Visit Diagnoses Not on filedocumented in this encounter
--- OUTSIDE RECORDS SUMMARY | 2022-05-17 19:15 | XMS_ITS | Encounter Summary ---
:1955 Author Organization [facility] Address [address] [place] [address] Care Team Providers Name Role Phone Unavailable Primary Care Provider Unavailable Encounter Details Date Type Department Care Team Description 03/16/2012 Hospital Encounter HX NO MAPPING Roshan Grace M.S .N., R.N., C.C.T.C. 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 [address] [place] [phone] 05/23/2022 Clinical Admitting/Central Communication Scheduling 05/27/2022 Comprehensive Visit Orthopedic Surgery Markus aSms M.D., Ph.D. [address] [place] [phone] 05/29/2022 Office Visit Otorhinolaryngology Dex Matta APRN, C.N.P., M.S.N. [address] [place] [phone] 05/29/2022 Office Visit Otorhinolaryngology Nadeem Maradiaga, P.Murtaza.-Arley., M.S. [address] [place] [phone] 05/31/2022 Appointment Radiology Guilherme Matt MPAS, P.Murtaza.Marie., M.S. [address] [place] [phone] 06/05/2022 Appointment Laboratory Medicine Angélica Granger P.A.-C. [address] [place] [phone] 06/19/2022 Appointment Laboratory Medicine Angélica Granger P.A.-C. [address] [place] [phone] 07/03/2022 Appointment Laboratory Medicine Angélica Granger P.A.-C. [address] [place] [phone] 07/17/2022 Appointment Laboratory Medicine Angélica Granger P.A.-C. [address] [place] [phone] 07/31/2022 Appointment Laboratory Medicine Angélica Granger P.A.-C. [address] [place] [phone] 08/14/2022 Appointment Laboratory Medicine Angélica Granger P.A.-C. [address] [place] [address] [phone] 08/28/2022 Appointment Laboratory Medicine Angélica Granger P.A.-C. [address] [place] [address] [phone] documented as of this encounter Visit Diagnoses Not on filedocumented in this encounter
--- OUTSIDE RECORDS SUMMARY | 2022-05-17 19:15 | XMS_ITS | Encounter Summary ---
:1955 Author Organization [facility] Address [address] [place] [address] Care Team Providers Name Role Phone Unavailable Primary Care Provider Unavailable Encounter Details Date Type Department Care Team Description 03/09/2012 Hospital Encounter HX NO MAPPING Roshan Grace M.S .N., R.N., C.C.T.C. 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 [address] [place] [phone] 05/23/2022 Clinical Admitting/Central Communication Scheduling 05/27/2022 Comprehensive Visit Orthopedic Surgery Markus Sams M.D., Ph.D. [address] [place] [phone] 05/29/2022 Office Visit Otorhinolaryngology Dex Matta APRN, C.N.P., M.S.N. [address] [place] [phone] 05/29/2022 Office Visit Otorhinolaryngology Nadeem Maradiaga, P.Murtaza.-Arley., M.S. [address] [place] [phone] 05/31/2022 Appointment Radiology Guilherme Matt MPAS, P.Murtaza.Marie., M.S. [address] [place] [phone] 06/05/2022 Appointment Laboratory Medicine Angélica Granger P.A.-C. [address] [place] [phone] 06/19/2022 Appointment Laboratory Medicine Angélica Granger P.A.-C. [address] [place] [phone] 07/03/2022 Appointment Laboratory Medicine Angélica Granger P.A.-C. [address] [place] [phone] 07/17/2022 Appointment Laboratory Medicine Angélica Granger P.A.-C. [address] [place] [phone] 07/31/2022 Appointment Laboratory Medicine Angélica Granger P.A.-C. [address] [place] [phone] 08/14/2022 Appointment Laboratory Medicine Angélica Granger P.A.-C. [address] [place] [address] [phone] 08/28/2022 Appointment Laboratory Medicine Angélica Granger P.A.-C. [address] [place] [address] [phone] documented as of this encounter Visit Diagnoses Not on filedocumented in this encounter
--- OUTSIDE RECORDS SUMMARY | 2022-05-17 19:15 | XMS_ITS | Encounter Summary ---
:1955 Author Organization [facility] Address [address] [place] [address] Care Team Providers Name Role Phone Unavailable Primary Care Provider Unavailable Encounter Details Date Type Department Care Team Description 01/13/2012 Hospital Encounter HX NO MAPPING Roshan Grace M.S .N., R.N., C.C.T.C. 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 [address] [place] [phone] 05/23/2022 Clinical Admitting/Central Communication Scheduling 05/27/2022 Comprehensive Visit Orthopedic Surgery Markus Sams M.D., Ph.D. [address] [place] [phone] 05/29/2022 Office Visit Otorhinolaryngology Dex Matta APRN, C.N.P., M.S.N. [address] [place] [phone] 05/29/2022 Office Visit Otorhinolaryngology Nadeem Maradiaga, P.Murtaza.-Arley., M.S. [address] [place] [phone] 05/31/2022 Appointment Radiology Guilherme Matt MPAS, P.Murtaza.Marie., M.S. [address] [place] [phone] 06/05/2022 Appointment Laboratory Medicine Angélica Granger P.A.-C. [address] [place] [phone] 06/19/2022 Appointment Laboratory Medicine Angélica Granger P.A.-C. [address] [place] [phone] 07/03/2022 Appointment Laboratory Medicine Angélica Granger P.A.-C. [address] [place] [phone] 07/17/2022 Appointment Laboratory Medicine Angélica Granger P.A.-C. [address] [place] [phone] 07/31/2022 Appointment Laboratory Medicine Angélica Granger P.A.-C. [address] [place] [phone] 08/14/2022 Appointment Laboratory Medicine Angélica Granger P.A.-C. [address] [place] [address] [phone] 08/28/2022 Appointment Laboratory Medicine Angélica Granger P.A.-C. [address] [place] [address] [phone] documented as of this encounter Visit Diagnoses Not on filedocumented in this encounter
--- OUTSIDE RECORDS SUMMARY | 2022-05-17 19:15 | XMS_ITS | Encounter Summary ---
:1955 Author Organization [facility] Address [address] [place] [address] Care Team Providers Name Role Phone Unavailable Primary Care Provider Unavailable Encounter Details Date Type Department Care Team Description 11/21/2011 Hospital Encounter HX NO MAPPING Roshan Grace M.S .N., R.N., C.C.T.C. 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 [address] [place] [phone] 05/23/2022 Clinical Admitting/Central Communication Scheduling 05/27/2022 Comprehensive Visit Orthopedic Surgery Markus Sams M.D., Ph.D. [address] [place] [phone] 05/29/2022 Office Visit Otorhinolaryngology Dex Matta APRN, C.N.P., M.S.N. [address] [place] [phone] 05/29/2022 Office Visit Otorhinolaryngology Nadeem Maradiaga, P.Murtaza.-Arley., M.S. [address] [place] [phone] 05/31/2022 Appointment Radiology Guilherme Matt MPAS, P.Murtaza.Marie., M.S. [address] [place] [phone] 06/05/2022 Appointment Laboratory Medicine Angélica Granger P.A.-C. [address] [place] [phone] 06/19/2022 Appointment Laboratory Medicine Angélica Granger P.A.-C. [address] [place] [phone] 07/03/2022 Appointment Laboratory Medicine Angélica Granger P.A.-C. [address] [place] [phone] 07/17/2022 Appointment Laboratory Medicine Angélica Granger P.A.-C. [address] [place] [phone] 07/31/2022 Appointment Laboratory Medicine Angélica Granger P.A.-C. [address] [place] [phone] 08/14/2022 Appointment Laboratory Medicine Angélica Granger P.A.-C. [address] [place] [address] [phone] 08/28/2022 Appointment Laboratory Medicine Angélica Granger P.A.-C. [address] [place] [address] [phone] documented as of this encounter Visit Diagnoses Not on filedocumented in this encounter
--- OUTSIDE RECORDS SUMMARY | 2022-05-17 19:15 | XMS_ITS | Encounter Summary ---
:1955 Author Organization [facility] Address [address] [place] [address] Care Team Providers Name Role Phone Unavailable Primary Care Provider Unavailable Encounter Details Date Type Department Care Team Description 01/07/2012 Hospital Encounter HX NO MAPPING Roshan Grace M.S .N., R.N., C.C.T.C. 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 [address] [place] [phone] 05/23/2022 Clinical Admitting/Central Communication Scheduling 05/27/2022 Comprehensive Visit Orthopedic Surgery Markus Sams M.D., Ph.D. [address] [place] [phone] 05/29/2022 Office Visit Otorhinolaryngology Dex Matta APRN, C.N.P., M.S.N. [address] [place] [phone] 05/29/2022 Office Visit Otorhinolaryngology Nadeem Maradiaga, P.Murtaza.-Arley., M.S. [address] [place] [phone] 05/31/2022 Appointment Radiology Guilherme Matt MPAS, P.Murtaza.Marie., M.S. [address] [place] [phone] 06/05/2022 Appointment Laboratory Medicine Angélica Granger P.A.-C. [address] [place] [phone] 06/19/2022 Appointment Laboratory Medicine Angélica Granger P.A.-C. [address] [place] [phone] 07/03/2022 Appointment Laboratory Medicine nAgélica Granger P.A.-C. [address] [place] [phone] 07/17/2022 Appointment Laboratory Medicine Angélica Granger P.A.-C. [address] [place] [phone] 07/31/2022 Appointment Laboratory Medicine Angélica Granger P.A.-C. [address] [place] [phone] 08/14/2022 Appointment Laboratory Medicine Angélica Granger P.A.-C. [address] [place] [address] [phone] 08/28/2022 Appointment Laboratory Medicine Angélica Granger P.A.-C. [address] [place] [address] [phone] documented as of this encounter Visit Diagnoses Not on filedocumented in this encounter
--- OUTSIDE RECORDS SUMMARY | 2022-05-17 19:15 | XMS_ITS | Encounter Summary ---
:1955 Author Organization [facility] Address [address] [place] [address] Care Team Providers Name Role Phone Unavailable Primary Care Provider Unavailable Encounter Details Date Type Department Care Team Description 01/08/2012 Hospital Encounter HX NO MAPPING Roshan Grace M.S .N., R.N., C.C.T.C. 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 [address] [place] [phone] 05/23/2022 Clinical Admitting/Central Communication Scheduling 05/27/2022 Comprehensive Visit Orthopedic Surgery Markus Sams M.D., Ph.D. [address] [place] [phone] 05/29/2022 Office Visit Otorhinolaryngology Dex Matta APRN, C.N.P., M.S.N. [address] [place] [phone] 05/29/2022 Office Visit Otorhinolaryngology Nadeem Maradiaga, P.Murtaza.-Arley., M.S. [address] [place] [phone] 05/31/2022 Appointment Radiology Guilherme Matt MPAS, P.Murtaza.Marie., M.S. [address] [place] [phone] 06/05/2022 Appointment Laboratory Medicine Angélica Granger P.A.-C. [address] [place] [phone] 06/19/2022 Appointment Laboratory Medicine Angélica Granger P.A.-C. [address] [place] [phone] 07/03/2022 Appointment Laboratory Medicine Angélica Granger P.A.-C. [address] [place] [phone] 07/17/2022 Appointment Laboratory Medicine Angélica Granger P.A.-C. [address] [place] [phone] 07/31/2022 Appointment Laboratory Medicine Angélica Granger P.A.-C. [address] [place] [phone] 08/14/2022 Appointment Laboratory Medicine Angélica Granger P.A.-C. [address] [place] [address] [phone] 08/28/2022 Appointment Laboratory Medicine Angélica Granger P.A.-C. [address] [place] [address] [phone] documented as of this encounter Visit Diagnoses Not on filedocumented in this encounter
--- OUTSIDE RECORDS SUMMARY | 2022-05-17 19:15 | XMS_ITS | Encounter Summary ---
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 [address] [place] [phone] 05/23/2022 Clinical Admitting/Central Communication Scheduling 05/27/2022 Comprehensive Visit Orthopedic Surgery Markus Sams M.D., Ph.D. [address] [place] [phone] 05/29/2022 Office Visit Otorhinolaryngology Dex Matta APRN, C.N.P., M.S.N. [address] [place] [phone] 05/29/2022 Office Visit Otorhinolaryngology Nadeem Maradiaga, PMaryanne., M.S. [address] [place] [phone] 05/31/2022 Appointment Radiology Guilherme Matt, RASTA, PMaryanne., M.S. [address] [place] [phone] 06/05/2022 Appointment Laboratory Medicine Angélica Granger P.A.-C. [address] [place] [phone] 06/19/2022 Appointment Laboratory Medicine Angélica Granger P.A.-C. [address] [place] [phone] 07/03/2022 Appointment Laboratory Medicine Angélica Granger P.A.-C. [address] [place] [phone] 07/17/2022 Appointment Laboratory Medicine Angélica Granger P.A.-C. [address] [place] [phone] 07/31/2022 Appointment Laboratory Medicine Angélica Granger P.A.-C. [address] [place] [address] [phone] 08/14/2022 Appointment Laboratory Medicine Angélica Granger P.A.-C. [address] [place] [address] [phone] 08/28/2022 Appointment Laboratory Medicine Angélica Granger P.A.-C. [address] [place] [address] [phone] documented as of this encounter Visit Diagnoses Not on filedocumented in this encounter
--- OUTSIDE RECORDS SUMMARY | 2022-05-17 19:15 | XMS_ITS | Encounter Summary ---
:1955 Author Organization [facility] Address [address] [place] [address] Care Team Providers Name Role Phone Unavailable [...] Recorded Male 05/16/2020 4:27 PM [employer] documented as of this encounter Last Filed [...] Laboratory Medicine Angélica Granger P.A.-C. [address] [place] [address] [phone] 05/23/2022 Clinical Admitting/Central Communication Scheduling 05/27/2022 Comprehensive Visit Orthopedic Surgery Markus Sams M.D., Ph.D. [address] [place] [address] [phone] 05/29/2022 Office Visit Otorhinolaryngology Dex Matta, RAMONA, C.N.P., M.S.N. [address] [place] [address] [phone] 05/29/2022 Office Visit Otorhinolaryngology Nadeem Maradiaga, P.Murtaza.-C., M.S. [address] [place] [phone] 05/31/2022 Appointment Radiology Guilherme Matt MPAS, Jennifer., M.S. [address] [place] [phone] 06/05/2022 Appointment Laboratory Medicine Angélica Granger P.A.-C. [address] [place] [phone] 06/19/2022 Appointment Laboratory Medicine Angélica Granger P.A.-C. [address] [place] [phone] 07/03/2022 Appointment Laboratory Medicine Angélica Granger P.A.-C. [address] [place] [phone] 07/17/2022 Appointment Laboratory Medicine Angélica Granger P.A.-C. [address] [place] [phone] 07/31/2022 Appointment Laboratory Medicine Angélica Granger P.A.-C. [address] [place] [phone] 08/14/2022 Appointment Laboratory Medicine Angélica Granger P.A.-C. [address] [place] [phone] 08/28/2022 Appointment Laboratory Medicine Angélica Granger P.A.-CDemetrius [address] [place] [phone] documented as of this encounter Procedures Procedure [...] procedure are i n the results section. [id number] Routine 03/19/2012 10:42 Resu lts for this [...] Signature Bilirubin, 5.1 (H) 0.1 - 1.0 [facility] Total, S MG/DL [facility] Comment: Drawn From PICC Bilirubin, Direct, S 3.3 (H) 0.0 - 0.3 MG/DL [facility] Comment: Drawn From PICC Specimen Anatomical Collection Method Collection Time Receive d Time (Source) Location / / Volume Laterality 03/25/2012 5:37 AM 2 5:37 CDT AM CDT Narrative [facility] [place] - 03/25/2012 6:41 AM CDT Drawn From PICC Historical Provider LAB BLOOD ADD-ON Performing Organization Address City/State/ZIP Code Phon e Number [facility] - [address] [place], [place] [address] [facility] (ABNORMAL) Electrolyte (Chem 4) Panel (03/25/2012 5:37 AM CDT) athologist Signature Sodium, S 132 (L) 135 - 145 [facility] MMOL/L [facility] Comment: Drawn From PICC Potassium, S 4.4 3.6 - 5.2 MMOL/L [facility] Comment: Drawn From PICC Chloride, S 101 100 - 108 MMOL/L [facility] Comment: Drawn From PICC HX Bicarbonate, P/S 20 (L) 22 - 29 MMOL/L [facility] Comment: Drawn From PICC Creatinine 1.3 0.8 - 1.3 MG/DL [facility] IC [facility] Comment: Drawn From PICC eGFR Non-Black/ 57 (L) >60 ML/MIN/BSA [facility] Comment: Drawn From PICC eGFR-Black/ >60 >60 ML/MIN/BSA [facility] Comment: Drawn From PICC BUN (Blood Urea Nitrogen), S 35 (H) 8 - 24 MG/DL [facility] Comment: Drawn From PICC Anion Gap 11 7 - 15 [facility]AT[facility] Comment: Drawn From PICC Glucose, S 171 (H) 70 - 140 MG/DL [facility] Comment: Drawn From PICC Specimen Anatomical Collection Method Collection Time Receive d Time (Source) Location / / Volume Laterality 03/25/2012 5:37 AM 2 5:37 CDT AM CDT Narrative [facility] [place] - 03/25/2012 6:41 AM CDT Drawn From PICC Historical Provider LAB BLOOD ADD-ON Performing Organization Address City/State/ZIP Code Phon e Number [facility] LABORATORIES - [address] [place] [address] [facility] (ABNORMAL) Alkaline Phosphatase (03/25/2012 5:37 AM CDT) Patholo gist Method Time Signature Alkaline 206 (H) 45 - 115 [facility] Phosphatase, S U/L [facility] Comment: Drawn From PICC Specimen Anatomical Collection Method Collection Time Receive d Time (Source) Location / / Volume Laterality 03/25/2012 5:37 AM 2 5:37 CDT AM CDT Narrative [facility] [place] - 03/25/2012 6:41 AM CDT Drawn From PICC Historical Provider LAB BLOOD ADD-ON Performing Organization Address City/State/ZIP Code Phon e Number [facility] LABORATORIES - [address] [place] [address] [facility] (ABNORMAL) Albumin (03/25/2012 5:37 AM CDT) P athologist Signature Albumin, S 3.1 (L) 3.5 - 5.0 [facility] G/DL [facility] Comment: Drawn From PICC Specimen Anatomical Collection Method Collection Time Receive d Time (Source) Location / / Volume Laterality 03/25/2012 5:37 AM 2 5:37 CDT AM CDT Narrative [facility] [place] - 03/25/2012 6:41 AM CDT Drawn From PICC Historical Provider LAB BLOOD ADD-ON Performing Organization Address City/State/ZIP Code Phon e Number [facility] LABORATORIES - [address] [place] [address] [facility] Tacrolimus Level (03/25/2012 5:37 AM CDT) athologist Signature Tacrolimus, B 6.1 5.0-15.0 [facility] (Trough) LABORATORIES - NG/ML [facility] Comment: Drawn From PIC Tacrolimus Blood Date of Last Dose . [facility] Comment: Drawn From PICC ? Not Specified ? Tacrolimus Time of Last Dose . M [facility] Comment: Drawn From PICC ? Not Specified ? Tacrolimus Blood Dose, mg . MG [facility] Comment: Drawn From PICC ? Not Specified ? Specimen Anatomical Collection Method Collection Time Receive d Time (Source) Location / / Volume Laterality 03/25/2012 5:37 AM 2 5:37 CDT AM CDT Narrative [facility] [place] - 03/25/2012 11:57 AM CDT Drawn From PICC Historical Provider LAB BLOOD NON ADD-ON Performing Organization Address City/State/ZIP Code Phon e Number [facility] - [address] [place], [place] [address] [facility] (ABNORMAL) ALT (Alanine Aminotransferase) (03/25/2012 5:37 AM CDT) [facility] gist Method Time Signature Alanine 94 (H) 7 - 55 [facility] Aminotransferase U/L LABORATORIES - (ALT), S [facility] Comment: Drawn From PICC Specimen Anatomical Collection Method Collection Time Receive d Time (Source) Location / / Volume Laterality 03/25/2012 5:37 AM 2 5:37 CDT AM CDT Narrative [facility] [place] - 03/25/2012 6:41 AM CDT Drawn From PICC Historical Provider LAB BLOOD ADD-ON Performing Organization Address City/State/ZIP Code Phon e Number [facility] - [address] [place], [place] [address] [facility] (ABNORMAL) CBC with Differential - No Alerts (03/25/2012 5:37 AM CDT) athologist Signature Hemoglobin 9.7 (L) 13.5 - [facility] 17.5 G/DL [facility] Comment: Drawn From PICC Hematocrit 29.3 (L) 38.8 - 50.0 % [facility] Comment: Drawn From PICC RBC Distrib Width 15.4 11.8 - 15.6 % [facility] Comment: Drawn From PICC Platelet Count 262 150 - 450 X10(9)/L [facility] Comment: Drawn From PICC Leukocytes 7.8 3.5 - 10.5 X10(9)/L [facility] Comment: Drawn From PICC Neutrophils 4.04 1.70 - 7.00 X10(9)/L [facility] Comment: Drawn From PICC ? Rechecked ? Eosinophils 0.48 0.05 - 0.50 X10(9)/L [facility] Comment: Drawn From PICC Basophils 0.03 0.00 - 0.30 X10(9)/L [facility] Comment: Drawn From PICC Erythrocytes 3.37 (L) 4.32 - 5.72 X10(12)/L [facility] Comment: Drawn From PICC MCV 86.9 81.2 - 95.1 FL [facility] LAB ORATORIES [facility] Comment: Drawn From PICC Lymphocytes 2.51 0.90 - 2.90 X10(9)/L [facility] Comment: Drawn From PICC Monocytes 0.71 0.30 - 0.90 X10(9)/L [facility] Comment: Drawn From PICC Specimen Anatomical Collection Method Collection Time Receive d Time (Source) Location / / Volume Laterality 03/25/2012 5:37 AM 2 5:37 CDT AM CDT Narrative [facility] [place] - 03/25/2012 6:55 AM CDT Drawn From PICC Historical Provider LAB BLOOD NON ADD-ON Performing Organization Address City/[facility] Code Phon e Number [facility] - [address] (ABNORMAL) AST (Aspartate Aminotransferase) (03/25/2012 5:37 AM CDT) [facility] gist Method Time Signature AST, Total, S 104 (H) 8 - 48 U/L [facility] Comment: Drawn From PICC Specimen Anatomical Collection Method Collection Time Receive d Time (Source) Location / / Volume Laterality 03/25/2012 5:37 AM 2 5:37 CDT AM CDT Narrative [facility] [place] - 03/25/2012 6:41 AM CDT Drawn From PICC Historical Provider LAB BLOOD ADD-ON Performing Organization Address City/[facility] Phon e Number [facility] LABORATORIES - [address] DX Chest Post PICC Placement 1 View [...] (ABNORMAL) Tacrolimus Level (03/24/2012 5:15 AM CDT) [facility] Method Time Signature Tacrolimus, B 4.7 (L) 5.0-15.0 [facility] (Trough) LABORATORIES - NG/ML [facility] Tacrolimus . [facility] Blood Date of LABORATORIES - Last Dose [facility] Comment: Not Specified Tacrolimus Time of Last Dose . [facility] LABORATORIES [facility] Comment: Not Specified Tacrolimus Blood Dose, mg . MG [facility] LABORATORIES - [facility] Comment: Not Specified Specimen Anatomical Collection Method Collection Time Receive d Time (Source) Location / / Volume Laterality 03/24/2012 5:15 AM 2 5:15 CDT AM CDT Historical Provider LAB BLOOD NON ADD-ON Performing Organization Address City/State/ZIP Code Phon e Number [facility] LABORATORIES - [address] [place], [place] [address] [facility] (ABNORMAL) CBC with Differential - No Alerts (03/24/2012 5:15 AM CDT) [facility] Method Time Signature Hemoglobin 10.2 (L) 13.5 - [facility] 17.5 G/DL LABORATORIES - [facility] Hematocrit 30.3 (L) 38.8 - [facility] 50.0 % LABORATORIES - [facility] RBC Distrib 15.2 11.8 - [facility] Width 15.6 % LABORATORIES - [facility] Platelet Count 307 150 - 450 [facility] X10(9)/L LABORATORIES - [facility] Lymphocytes 2.45 0.90 - [facility] 2.90 LABORATORIES - X10(9)/L [facility] Monocytes 1.04 (H) 0.30 - [facility] 0.90 LABORATORIES - X10(9)/L [facility] Eosinophils 0.51 (H) 0.05 - [facility] 0.50 LABORATORIES - X10(9)/L [facility] Basophils 0.03 0.00 - [facility] 0.30 LABORATORIES - X10(9)/L [facility] Erythrocytes 3.45 (L) 4.32 - [facility] 5.72 LABORATORIES - X10(12)/L [facility] MCV 87.8 81.2 - [facility] 95.1 FL LABORATORIES - [facility] Leukocytes 9.1 3.5 - [facility] 10.5 LABORATORIES - X10(9)/L [facility] Neutrophils 5.03 1.70 - [facility] 7.00 LABORATORIES - X10(9)/L [facility] Comment: Rechecked Specimen Anatomical Collection Method Collection Time Receive d Time (Source) Location / / Volume Laterality 03/24/2012 5:15 AM 2 5:15 CDT AM CDT Historical Provider LAB BLOOD NON ADD-ON Performing Organization Address City/State/ZIP Code Phon e Number [facility] LABORATORIES - [address] [place], [place] [address] [facility] (ABNORMAL) PT (Prothrombin Time) with INR (03/24/2012 5:14 AM CDT) [facility] Method Time Signature Prothrombin 14.1 (H) 9.5 - [facility] Time, P 13.8 SEC LABORATORIES - [facility] INR 1.2 0.8 - 1.2 [facility] LABORATORIES - [facility] Specimen Anatomical Collection Method Collection Time Receive d Time (Source) Location / / Volume Laterality 03/24/2012 5:14 AM 2 5:14 CDT AM CDT Historical Provider LAB BLOOD ADD-ON Performing Organization Address City/State/ZIP Code Phon e Number [facility] LABORATORIES - [address] [place], [place] [address] [facility] (ABNORMAL) Bilirubin (03/24/2012 5:14 AM CDT) [facility] Method Time Signature Bilirubin, 6.0 (H) 0.1 - 1.0 [facility] Total, S MG/DL LABORATORIES [facility] Bilirubin, 4.0 (H) 0.0 - 0.3 [facility] Direct, S MG/DL LABORATORIES - [facility] Specimen Anatomical Collection Method Collection Time Receive d Time (Source) Location / / Volume Laterality 03/24/2012 5:14 AM 2 5:14 CDT AM CDT Historical Provider LAB BLOOD ADD-ON Performing Organization Address City/[facility]/ZIP Code Phon e Number [facility] LABORATORIES - [address] [place], [place] [address] [facility] (ABNORMAL) AST (Aspartate Aminotransferase) (03/24/2012 5:14 AM CDT) [facility] Method Time Signature AST, Total, S 109 (H) 8 - 48 U/L [facility] Specimen Anatomical Collection Method Collection Time Receive d Time (Source) Location / / Volume Laterality 03/24/2012 5:14 AM 2 5:14 CDT AM CDT Historical Provider LAB BLOOD ADD-ON Performing Organization Address City/[facility]/ZIP Code Phon e Number [facility] LABORATORIES - [address] [place], [place] [address] [facility] (ABNORMAL) Alkaline Phosphatase (03/24/2012 5:14 AM CDT) [facility] Method Time Signature Alkaline 203 (H) 45 - 115 [facility] Phosphatase, S U/L LABORATORIES - [facility] Specimen Anatomical Collection Method Collection Time Receive d Time (Source) Location / / Volume Laterality 03/24/2012 5:14 AM 2 5:14 CDT AM CDT Historical Provider LAB BLOOD ADD-ON Performing Organization Address City/State/ZIP Code Phon e Number [facility] LABORATORIES - [address] [place], [place] [address] [facility] (ABNORMAL) ALT (Alanine Aminotransferase) (03/24/2012 5:14 AM CDT) [facility] Method Time Signature Alanine 93 (H) 7 - 55 [facility] Aminotransferase U/L LABORATORIES - (ALT), S [facility] Specimen Anatomical Collection Method Collection Time Receive d Time (Source) Location / / Volume Laterality 03/24/2012 5:14 AM 2 5:14 CDT AM CDT Historical Provider LAB BLOOD ADD-ON Performing Organization Address City/[facility] Code Phon e Number [facility] LABORATORIES - [address] [place] [address] [facility] (ABNORMAL) Electrolyte (Chem 4) Panel (03/24/2012 5:14 AM CDT) [facility] Method Time Signature Sodium, S 131 (L) 135 - 145 [facility] MMOL/L LABORATORIES - [facility] Potassium, S 4.4 3.6 - 5.2 [facility] MMOL/L LABORATORIES - [facility] eGFR-Black/Afri >60 >60 [facility] can [place] ML/MIN/BS LABORATORIES - A [facility] BUN (Blood Urea 32 (H) 8 - 24 [facility] Nitrogen), S MG/DL LABORATORIES - [facility] Chloride, S 99 (L) 100 - 108 [facility] MMOL/L [facility]ATORIES - [facility] HX Bicarbonate, 22 22 - 29 [facility] P/S MMOL/L [facility]ATORIES - [facility] Creatinine 1.1 0.8 - 1.3 [facility] MG/DL LAB[facility]ATORIES - [facility] eGFR >60 >60 [facility] Non-Black/Afric ML/MIN/BS LABORATORIES - [place] A [facility] Anion Gap 10 7 - 15 [facility] LABORATORIES - [facility] Glucose, S 135 70 - 140 [facility] MG/DL LAB[facility]ATORIES - [facility] Specimen Anatomical Collection Method Collection Time Receive d Time (Source) Location / / Volume Laterality 03/24/2012 5:14 AM 2 5:14 CDT AM CDT Historical Provider LAB BLOOD ADD-ON Performing Organization Address City/[facility] Phon e Number [facility] LABORATORIES - [address] [place] [address] [facility] (ABNORMAL) Albumin (03/24/2012 5:14 AM CDT) P athologist Signature Albumin, S 3.1 (L) 3.5 - 5.0 [facility] G/DL LABORATORIES - [facility] Specimen Anatomical Collection Method Collection Time Receive d Time (Source) Location / / Volume Laterality 03/24/2012 5:14 AM 2 5:14 CDT AM CDT Historical Provider LAB BLOOD ADD-ON Performing Organization Address City/State/ZIP Code Phon e Number [facility] LABORATORIES - [address] [place], [place] [address] [facility] Vancomycin, Trough (03/23/2012 6:04 PM CDT) [facility] gist Method Time Signature Vancomycin, 24.8 SeeComment [facility] Trough, S MCG/ML LABORATORIES - [facility] Comment: Reference Range: ? 10.0 - [...] [facility] - [address] [place], [place] [address] [facility] V&IRAD Vascular & Intervention (03/23/2012 3:26 [...] ?? Electronically signed by: ?? Latoya PETTIT [id number] 23-Mar-2012 18:08 Procedure Note Santana Schwab M.D., Ph.D. - 09/21/19 18 23-Mar-2012 15:26:00 Exam: V&IRAD Vascul ar & Intervention Indications: Tube cholangiogram Day 5 S/P hepatic transplant ORIGINAL REPORT - 23-Mar-2012 18:08:00 PROCEDURE: Cholangiogram performed on th e patient's left transhepatic biliary drainage catheter. [...] dis cussed. Electronically signed by: Latoya PETTIT [phone] 23-Mar-2012 18:08 Curt Nicholas M.D. IMAutumn IR PROCEDURES Morphology Evaluation (Special smear) (03/23/2012 5:14 AM CDT) [facility] gist Method Time Signature Monocytes 10 1 - 11 % [facility] Eosinophils 7 0 - 7 % [facility] Neutrophilic Segs 66 42 - 75 % [facility] and Bands [facility] Lymphocytes 16 16 - 52 % [facility] Basophils 1 0 - 4 % [facility] Manual Absolute 7.26 X10(9)/L [facility] Neutrophil Count [facility] Comment: The manual absolute neutrophil count is derived from a ? manual differential count and therefore is not exactly ? comparable to the automated absolute rui trophil count. ? Specimen Anatomical Collection Method Collection Time Receive d Time (Source) Location / / Volume Laterality 03/23/2012 5:14 AM 2 5:14 CDT AM CDT Cristi Tee M.D. LAB PATHOLOGY/CYTOLOGY ORDER OSMEL Performing Organization Address City/[facility] Phon e Number [facility] LABORATORIES - [address] [place], [place] [address] [facility] Tacrolimus Level (03/23/2012 5:14 AM CDT) Analysis Performed At Patho logist Time Signature Tacrolimus, B 5.4 5.0-15.0 [facility] (Trough) LABORATORIES - NG/ML [facility] Tacrolimus . [facility] Blood Date of LABORATORIES - Last Dose [facility] Comment: Not Specified Tacrolimus Time of Last Dose . [facility] LABORATORIES [facility] Comment: Not Specified Tacrolimus Blood Dose, mg . MG [facility] LABORATORIES - [facility] Comment: Not Specified Specimen Anatomical Collection Method Collection Time Receive d Time (Source) Location / / Volume Laterality 03/23/2012 5:14 AM 2 5:14 CDT AM CDT Cristi Tee M.D. LAB BLOOD NON ADD-ON Performing Organization Address City/State/ZIP Code Phon e Number [facility] LABORATORIES - [address] [place] [address] [facility] (ABNORMAL) AST (Aspartate Aminotransferase) (03/23/2012 5:14 AM CDT) [facility] Method Time Signature AST, Total, S 112 (H) 8 - 48 U/L [facility] Specimen Anatomical Collection Method Collection Time Receive d Time (Source) Location / / Volume Laterality 03/23/2012 5:14 AM 2 5:14 CDT AM CDT Cristi Tee M.D. LAB BLOOD ADD-ON Performing Organization Address City/[facility]/ZIP Code Phon e Number [facility] - [address] [place] [address] [facility] PT (Prothrombin Time) with INR (03/23/2012 5:14 AM CDT) [facility] Signature Prothrombin 13.6 9.5 - 13.8 [facility] Time, P SEC [facility] INR 1.1 0.8 - 1.2 [facility] Specimen Anatomical Collection Method Collection Time Receive d Time (Source) Location / / Volume Laterality 03/23/2012 5:14 AM 2 5:14 CDT AM CDT Cristi Tee M.D. LAB BLOOD ADD-ON Performing Organization Address City/State/ZIP Code Phon e Number [facility] LABORATORIES - [address] [place] [address] [facility] Magnesium (03/23/2012 5:14 AM CDT) P athologist Signature Magnesium, S 2.0 1.7 - 2.3 [facility] MG/DL LABORATORIES [facility] Specimen Anatomical Collection Method Collection Time Receive d Time (Source) Location / / Volume Laterality 03/23/2012 5:14 AM 2 5:14 CDT AM CDT Cristi Tee M.D. LAB BLOOD ADD-ON Performing Organization Address City/[facility]/ZIP Code Phon e Number [facility] LABORATORIES - [address] [place] [address] [facility] (ABNORMAL) Bilirubin (03/23/2012 5:14 AM CDT) [facility] Method Time Signature Bilirubin, 7.3 (H) 0.1 - 1.0 [facility] Total, S MG/DL LABORATORIES - [facility] Bilirubin, 5.0 (H) 0.0 - 0.3 [facility] Direct, S MG/DL LABORATORIES - [facility] Specimen Anatomical Collection Method Collection Time Receive d Time (Source) Location / / Volume Laterality 03/23/2012 5:14 AM 2 5:14 CDT AM CDT Cristi Tee M.D. LAB BLOOD ADD-ON Performing Organization Address City/State/ZIP Code Phon e Number [facility] LABORATORIES - [address] [place] [address] [facility] Calcium, Total (03/23/2012 5:14 AM CDT) P athologist Signature Calcium, 9.0 8.9 - 10.1 [facility] Total, S MG/DL LABORATORIES - [facility] Specimen Anatomical Collection Method Collection Time Receive d Time (Source) Location / / Volume Laterality 03/23/2012 5:14 AM 2 5:14 CDT AM CDT Cristi Tee M.D. LAB BLOOD ADD-ON Performing Organization Address City/State/ZIP Code Phon e Number [facility] LABORATORIES - [address] (ABNORMAL) ALT (Alanine Aminotransferase) (03/23/2012 5:14 AM CDT) [facility] Method Time Signature Alanine 92 (H) 7 - 55 [facility] Aminotransferase U/L LABORATORIES - (ALT), S [facility] Specimen Anatomical Collection Method Collection Time Receive d Time (Source) Location / / Volume Laterality 03/23/2012 5:14 AM 2 5:14 CDT AM CDT Cristi Tee M.D. LAB BLOOD ADD-ON Performing Organization Address City/[facility]/ZIP Code Phon e Number [facility] LABORATORIES - [address] [place] [address] [facility] [facility] (ABNORMAL) Alkaline Phosphatase (03/23/2012 5:14 AM CDT) [facility] Time Signature Alkaline 207 (H) 45 - 115 [facility] Phosphatase, S U/L LABORATORIES - [facility] Specimen Anatomical Collection Method Collection Time Receive d Time (Source) Location / / Volume Laterality 03/23/2012 5:14 AM 2 5:14 CDT AM CDT Cristi Tee M.D. LAB BLOOD ADD-ON Performing Organization Address City/[facility]/ZIP Code Phon e Number [facility] LABORATORIES - [address] [phone] [facility] (ABNORMAL) Electrolyte (Chem 4) Panel (03/23/2012 5:14 AM CDT) [facility] Time Signature Chloride, S 101 100 - 108 [facility] MMOL/L [facility] - [facility] HX Bicarbonate, 21 (L) 22 - 29 [facility] P/S MMOL/L [facility] - [facility] Creatinine 1.1 0.8 - 1.3 [facility] MG/DL [facility]ATORIES - [facility] eGFR >60 >60 [facility] Non-Black/Afric ML/MIN/BS LABORATORIES - [place] [facility] eGFR-Black/Afri >60 >60 [facility] can [place] ML/MIN/BS LABORATORIES - [facility] BUN (Blood Urea 23 8 - 24 [facility] Nitrogen), S MG/DL [facility]IES - [facility] Sodium, S 133 (L) 135 - 145 [facility] MMOL/L [facility] - [facility] Potassium, S 4.6 3.6 - 5.2 [facility] MMOL/L [facility] - [facility] Anion Gap 11 7 - 15 [facility] - [facility] Glucose, S 94 70 - 140 [facility] MG/DL [facility]ATORIES - [facility] Specimen Anatomical Collection Method Collection Time Receive d Time (Source) Location / / Volume Laterality 03/23/2012 5:14 AM 2 5:14 CDT AM CDT Cristi Tee M.D. LAB BLOOD ADD-ON Performing Organization Address City/State/[facility] Code Phon e Number [facility] LABORATORIES - [address] [address] [facility] (ABNORMAL) CBC with Differential - No Alerts (03/23/2012 5:14 AM CDT) [facility] Time Signature Hemoglobin 10.1 (L) 13.5 - [facility] 17.5 G/DL LAB[facility]ATORIES - [facility] Hematocrit 29.7 (L) 38.8 - [facility] 50.0 % LAB[facility]ATORIES - [facility] Erythrocytes 3.49 (L) 4.32 - [facility] 5.72 LABORATORIES - X10(12)/L [facility] MCV 85.1 81.2 - [facility] 95.1 FL [facility]ATOR[facility] - [facility] RBC Distrib 15.3 11.8 - [facility] Width 15.6 % LABORATORIES [facility] Platelet Count 285 150 - 450 [facility] X10(9)/L [facility] Leukocytes 11.0 (H) 3.5 - [facility] 10.5 LABORATORIES - X10(9)/L [facility] Neutrophils SeeComment X10(9)/L [facility] - [facility] Comment: Auto-diff results not valid. Se e manual differential. Specimen Anatomical Collection Method Collection Time Receive d Time (Source) Location / / Volume Laterality 03/23/2012 5:14 AM 2 5:14 CDT AM CDT Cristi Tee M.D. LAB BLOOD NON ADD-ON Performing Organization Address [facility] Phon e Number [facility] LABORATORIES - [address] [phone] [facility] (ABNORMAL) Albumin (03/23/2012 5:14 AM CDT) P athologist Signature Albumin, S 3.2 (L) 3.5 - 5.0 [facility] G/DL [facility] Specimen Anatomical Collection Method Collection Time Receive d Time (Source) Location / / Volume Laterality 03/23/2012 5:14 AM 2 5:14 CDT AM CDT Cristi Tee M.D. LAB BLOOD ADD-ON Performing Organization Address City/[facility] Phon e Number [facility] LABORATORIES - [address] [address] [facility] (ABNORMAL) Bilirubin, Total (03/22/2012 5:08 AM CDT) Patholo gist Method Time Signature Bilirubin, 8.3 (H) 0.1 - 1.0 [facility] Total, S MG/DL [facility] Specimen Anatomical Collection Method Collection Time Receive d Time (Source) Location / / Volume Laterality 03/22/2012 5:08 AM 2 5:08 CDT AM CDT Joselyn aFy M.D. LAB BLOOD ADD-ON Performing Organization Address City/[facility]/ZIP Code Phon e Number [facility] LABORATORIES - [address] [address] [facility] Magnesium (03/22/2012 5:08 AM CDT) P athologist Signature Magnesium, S 1.9 1.7 - 2.3 [facility] MG/DL [facility]IES - [facility] Specimen Anatomical Collection Method Collection Time Receive d Time (Source) Location / / Volume Laterality 03/22/2012 5:08 AM 2 5:08 CDT AM CDT Joselyn Fay M.D. LAB BLOOD ADD-ON Performing Organization Address City/[facility]/ZIP Code Phon e Number [facility] LABORATORIES - [address] [address] [facility] (ABNORMAL) Electrolyte (Chem 4) Panel (03/22/2012 5:08 AM CDT) Patholo gist Method Time Signature Chloride, S 103 100 - 108 [facility] MMOL/L [facility] - [facility] HX Bicarbonate, 20 (L) 22 - 29 [facility] P/S MMOL/L [facility] - [facility] Creatinine 1.1 0.8 - 1.3 [facility] MG/DL [facility] - [facility] eGFR >60 >60 [facility] Non-Black/Afric ML/MIN/BS LABORATORIES - [place] A [facility] Anion Gap 11 7 - 15 [facility] Glucose, S 180 (H) 70 - 140 [facility] MG/DL [facility]ATORIES - [facility] Sodium, S 134 (L) 135 - 145 [facility] MMOL/L [facility] - [facility] Potassium, S 4.1 3.6 - 5.2 [facility] MMOL/L [facility]ATORIES - [facility] eGFR-Black/Afri >60 >60 [facility] can [place] ML/MIN/BS LABORATORIES - A [facility] BUN (Blood Urea 26 (H) 8 - 24 [facility] Nitrogen), S MG/DL [facility]ATORIES - [facility] Specimen Anatomical Collection Method Collection Time Receive d Time (Source) Location / / Volume Laterality 03/22/2012 5:08 AM 2 5:08 CDT AM CDT Joselyn Fay M.D. LAB BLOOD ADD-ON Performing Organization Address City/[facility]/ZIP Code Phon e Number [facility] LABORATORIES - [address] [address] [facility] (ABNORMAL) ALT (Alanine Aminotransferase) (03/22/2012 5:08 AM CDT) [facility] Time Signature Alanine 73 (H) 7 - 55 [facility] Aminotransferase U/L LABORATORIES - (ALT), S [facility] Specimen Anatomical Collection Method Collection Time Receive d Time (Source) Location / / Volume Laterality 03/22/2012 5:08 AM 2 5:08 CDT AM CDT Joselyn Fay M.D. LAB BLOOD ADD-ON Performing Organization Address City/[facility]/ZIP Code Phon e Number [facility] LABORATORIES - [address] [place], [place] [address] [facility] (ABNORMAL) CBC without Differential (03/22/2012 5:08 AM CDT) [facility] Time Signature Erythrocytes 3.26 (L) 4.32 - [facility] 5.72 LABORATORIES - X10(12)/L [facility] MCV 86.2 81.2 - [facility] 95.1 FL LABORATORIES - [facility] RBC Distrib 15.2 11.8 - [facility] Width 15.6 % LABORATORIES - [facility] Platelet Count 258 150 - 450 [facility] X10(9)/L LAB[facility]ATORIES - [facility] Leukocytes 8.3 3.5 - [facility] 10.5 LABORATORIES - X10(9)/L [facility] Hemoglobin 9.6 (L) 13.5 - [facility] 17.5 G/DL [facility] Hematocrit 28.1 (L) 38.8 - [facility] 50.0 % LABORATORIES - [facility] Specimen Anatomical Collection Method Collection Time Receive d Time (Source) Location / / Volume Laterality 03/22/2012 5:08 AM 2 5:08 CDT AM CDT Joselyn Fay M.D. LAB BLOOD ADD-ON Performing Organization Address City/State/[facility] Code Phon e Number [facility] LABORATORIES - [address], [place] [address] [facility] (ABNORMAL) Bilirubin, Direct (03/22/2012 5:08 AM CDT) [facility] Time Signature Bilirubin, 5.7 (H) 0.0 - 0.3 [facility] Direct, S MG/DL [facility]ATORIES - [facility] Specimen Anatomical Collection Method Collection Time Receive d Time (Source) Location / / Volume Laterality 03/22/2012 5:08 AM 2 5:08 CDT AM CDT Joselyn Fay M.D. LAB BLOOD ADD-ON Performing Organization Address City/State/ZIP Code Phon e Number [facility] LABORATORIES - [address] [address] [facility] (ABNORMAL) Alkaline Phosphatase (03/22/2012 5:08 AM CDT) Patholo gist Method Time Signature Alkaline 202 (H) 45 - 115 [facility] Phosphatase, S U/L LABORATORIES [facility] Specimen Anatomical Collection Method Collection Time Receive d Time (Source) Location / / Volume Laterality 03/22/2012 5:08 AM 2 5:08 CDT AM CDT Joselyn Fay M.D. LAB BLOOD ADD-ON Performing Organization Address City/[facility]/ZIP Code Phon e Number [facility] LABORATORIES - [address] [address] [facility] (ABNORMAL) AST (Aspartate Aminotransferase) (03/22/2012 5:08 AM CDT) Analysis Performed At Patho logist Time Signature AST, Total, S 87 (H) 8 - 48 U/L [facility] Specimen Anatomical Collection Method Collection Time Receive d Time (Source) Location / / Volume Laterality 03/22/2012 5:08 AM 2 5:08 CDT AM CDT Joselyn Fay M.D. LAB BLOOD ADD-ON Performing Organization Address City/[facility]/ZIP Code Phon e Number [facility] LABORATORIES - [address] [address] [facility] Phosphorus Inorganic (03/22/2012 5:08 AM CDT) Analysis Performed At Patho logist Time Signature Phosphorus 3.5 2.5 - 4.5 [facility] (Inorganic), S MG/DL LABORATORIES [facility] Specimen Anatomical Collection Method Collection Time Receive d Time (Source) Location / / Volume Laterality 03/22/2012 5:08 AM 2 5:08 CDT AM CDT Joselyn Fay M.D. LAB BLOOD ADD-ON Performing Organization Address City/[facility]/ZIP Code Phon e Number [facility] LABORATORIES - [address] [address] [facility] (ABNORMAL) Albumin (03/22/2012 5:08 AM CDT) P athologist Signature Albumin, S 3.1 (L) 3.5 - 5.0 [facility] G/DL [facility] Specimen Anatomical Collection Method Collection Time Receive d Time (Source) Location / / Volume Laterality 03/22/2012 5:08 AM 2 5:08 CDT AM CDT Joselyn Fay M.D. LAB BLOOD ADD-ON Performing Organization Address City/[facility] Code Phon e Number [facility] - [address], [place] [address] [facility] PT (Prothrombin Time) with INR (03/22/2012 5:08 AM CDT) Patholo gist Method Time Signature Prothrombin 13.4 9.5 - 13.8 [facility] Time, P SEC [facility] INR 1.1 0.8 - 1.2 [facility] Specimen Anatomical Collection Method Collection Time Receive d Time (Source) Location / / Volume Laterality 03/22/2012 5:08 AM 2 5:08 CDT AM CDT Joselyn Fay M.D. LAB BLOOD ADD-ON Performing Organization Address City/[facility]/ZIP Code Phon e Number [facility] - [address] [address] [facility] Microbiology Reports (03/21/2012 3:05 PM CDT) Specimen Anatomical Collection Method Collection Time Receive d Time (Source) Location / / Volume Laterality 03/21/2012 3:05 PM 2 3:06 CDT PM CDT Narrative [facility] [place] - 03/26/2012 6:30 PM CDT 21-MAR-2012 BLOOD, ? SoftOrd# [id number] ?(Specimen Collected 15:05; Received 21-MAR-2012 15:27) ?[facility] ?BACTERIA/RIMMA CULTURE, BLOOD ? (Reported 26-MAR-2012 18:30) FINAL ?No growth after 5 days of in cubation. Procedure Note 10/01/2017 21-MAR-2012 BLOOD, SoftOrd# [id number] (Specimen Collected 21-MAR-2012 15:05; Received 21-MAR-2012 15:27) [facility] BACTERIA/RIMMA CULTURE, BLOOD (Repor onel 26-MAR-2012 18:30) FINAL No growth after 5 days of incubation. Buddy Barron LAB MICROBIOLOGY - GENERAL O CAMERAKAJAL Performing Organization Address City/State/[facility] Phon e Number [facility] [place] - [address], [place] [address] [facility] Microbiology Reports (03/21/2012 2:50 PM CDT) Specimen Anatomical Collection Method Collection Time Receive d Time (Source) Location / / Volume Laterality 03/21/2012 2:50 PM 2 2:51 CDT PM CDT Narrative [facility] - [facility] - 03/26/2012 6:30 PM CDT 21-MAR-2012 BLOOD, ? SoftOrd# [id number] ?(Specimen Collected 14:50; Received 21-MAR-2012 15:27) ?[facility] ?BACTERIA/RIMMA CULTURE, BLOOD ? (Reported 26-MAR-2012 18:30) FINAL ?No growth after 5 days of in cubation. Procedure Note 10/01/2017 21-MAR-2012 BLOOD, SoftOrd# [id number] (Specimen Collected 21-MAR-2012 14:50; Received 21-MAR-2012 15:27) [facility] BACTERIA/RIMMA CULTURE, BLOOD (Repor onel 26-MAR-2012 18:30) FINAL No growth after 5 days of incubation. Buddy Barron LAB MICROBIOLOGY - GENERAL O RDERABLES Performing Organization Address City/[facility]/ZIP Code Phon e Number [facility] - [address] [address] [facility] Sodium, 24 Hour, Urine (03/21/2012 6:21 AM CDT) Patholo gist Method Time Signature Sodium, 24 HR, U 145 41 - 227 [facility] MMOL/24 H [facility] Sodium 55 MMOL/L [facility] Concentration [facility] Collection 24 H [facility] Duration [facility] Urine Volume 2629 ML [facility] Specimen Anatomical Collection Method Collection Time Receive d Time (Source) Location / / Volume Laterality 03/21/2012 6:21 AM 2 6:21 CDT AM CDT May Ballesteros P.A.-C. LAB URINE ORDERABLES Performing Organization Address City/[facility]/ZIP Code Phon e Number [facility] LABORATORIES - [address] [address] [facility] Magnesium (03/21/2012 5:20 AM CDT) P athologist Signature Magnesium, S 2.0 1.7 - 2.3 [facility] MG/DL [facility] Specimen Anatomical Collection Method Collection Time Receive d Time (Source) Location / / Volume Laterality 03/21/2012 5:20 AM 2 5:20 CDT AM CDT May Ballesteros P.A.-C. LAB BLOOD ADD-ON Performing Organization Address City/[facility]/ZIP Code Phon e Number [facility] LABORATORIES - [address], [place] [address] [facility] (ABNORMAL) ALT (Alanine Aminotransferase) (03/21/2012 5:20 AM CDT) [facility] Time Signature Alanine 59 (H) 7 - 55 [facility] Aminotransferase U/L LABORATORIES - (ALT), S [facility] Specimen Anatomical Collection Method Collection Time Receive d Time (Source) Location / / Volume Laterality 03/21/2012 5:20 AM 2 5:20 CDT AM CDT May Ballesteros P.A.-C. LAB BLOOD ADD-ON Performing Organization Address City/[facility]/ZIP Code Phon e Number [facility] LABORATORIES - [address], [place] [address] [facility] (ABNORMAL) Bilirubin (03/21/2012 5:20 AM CDT) [facility] Time Signature Bilirubin, 10.1 (H) 0.1 - 1.0 [facility] Total, S MG/DL LABORATORIES - [facility] Bilirubin, 8.1 (H) 0.0 - 0.3 [facility] Direct, S MG/DL LABORATORIES - [facility] Specimen Anatomical Collection Method Collection Time Receive d Time (Source) Location / / Volume Laterality 03/21/2012 5:20 AM 2 5:20 CDT AM CDT May Ballesteros P.A.-C. LAB BLOOD ADD-ON Performing Organization Address City/State/ZIP Code Phon e Number [facility] LABORATORIES - [address], [place] [address] [facility] (ABNORMAL) Albumin (03/21/2012 5:20 AM CDT) P athologist Signature Albumin, S 3.0 (L) 3.5 - 5.0 [facility] G/DL LABORATORIES - [facility] Specimen Anatomical Collection Method Collection Time Receive d Time (Source) Location / / Volume Laterality 03/21/2012 5:20 AM 2 5:20 CDT AM CDT May Ballesteros P.A.-C. LAB BLOOD ADD-ON Performing Organization Address City/State/ZIP Code Phon e Number [facility] LABORATORIES - [address], [place] [address] [facility] (ABNORMAL) Alkaline Phosphatase (03/21/2012 5:20 AM CDT) [facility] Time Signature Alkaline 213 (H) 45 - 115 [facility] Phosphatase, S U/L LABORATORIES - [facility] Specimen Anatomical Collection Method Collection Time Receive d Time (Source) Location / / Volume Laterality 03/21/2012 5:20 AM 2 5:20 CDT AM CDT May Ballesteros P.A.-C. LAB BLOOD ADD-ON Performing Organization Address City/[facility]/ZIP Code Phon e Number [facility] LABORATORIES - [address] [address] [facility] PT (Prothrombin Time) with INR (03/21/2012 5:20 AM CDT) [facility] Colma Signature Prothrombin 12.5 9.5 - 13.8 [facility] Time, P SEC LABORATORIES - [facility] INR 1.0 0.8 - 1.2 [facility] - [facility] Specimen Anatomical Collection Method Collection Time Receive d Time (Source) Location / / Volume Laterality 03/21/2012 5:20 AM 2 5:20 CDT AM CDT May Ballesteros P.A.-C. LAB BLOOD ADD-ON Performing Organization Address City/[facility]/ZIP Code Phon e Number [facility] LABORATORIES - [address] [address] [facility] (ABNORMAL) Electrolyte (Chem 4) Panel (03/21/2012 5:20 AM CDT) [facility] Time Signature Chloride, S 102 100 - 108 [facility] MMOL/L LABORATORIES [facility] HX Bicarbonate, 22 22 - 29 [facility] P/S MMOL/L LABORATORIES - [facility] eGFR-Black/Afri >60 >60 [facility] can [place] ML/MIN/BS LABORATORIES - A [facility] BUN (Blood Urea 27 (H) 8 - 24 [facility] Nitrogen), S MG/DL LABORATORIES - [facility] Sodium, S 134 (L) 135 - 145 [facility] MMOL/L LABORATORIES - [facility] Potassium, S 3.9 3.6 - 5.2 [facility] MMOL/L LABORATORIES - [facility] Creatinine 1.1 0.8 - 1.3 [facility] MG/DL LABORATORIES - [facility] eGFR >60 >60 [facility] Non-Black/Afric ML/MIN/BS LABORATORIES - an [place] A [facility] Anion Gap 10 7 - 15 [facility] LABORATORIES - [facility] Glucose, S 174 (H) 70 - 140 [facility] MG/DL LABORATORIES - [facility] Specimen Anatomical Collection Method Collection Time Receive d Time (Source) Location / / Volume Laterality 03/21/2012 5:20 AM 2 5:20 CDT AM CDT May Ballesteros P.A.-C. LAB BLOOD ADD-ON Performing Organization Address City/[facility] Phon e Number [facility] LABORATORIES - [address] [address] [facility] (ABNORMAL) AST (Aspartate Aminotransferase) (03/21/2012 5:20 AM CDT) Analysis Performed At Patho logist Time Signature AST, Total, S 60 (H) 8 - 48 U/L [facility] LABORATORIES - [facility] Specimen Anatomical Collection Method Collection Time Receive d Time (Source) Location / / Volume Laterality 03/21/2012 5:20 AM 2 5:20 CDT AM CDT May Ballesteros P.A.-C. LAB BLOOD ADD-ON Performing Organization Address City/[facility] Code Phon e Number [facility] LABORATORIES - [address] [address] [facility] (ABNORMAL) CBC with Differential - No Alerts (03/21/2012 5:20 AM CDT) Patholo gist Method Time Signature Erythrocytes 3.45 (L) 4.32 - [facility] 5.72 LABORATORIES - X10(12)/L [facility] MCV 84.1 81.2 - [facility] 95.1 FL LABORATORIES - [facility] RBC Distrib 15.0 11.8 - [facility] Width 15.6 % LABORATORIES - [facility] Platelet Count 231 150 - 450 [facility] X10(9)/L LABORATORIES [facility] Lymphocytes 2.59 0.90 - [facility] 2.90 LABORATORIES - X10(9)/L [facility] Monocytes 0.77 0.30 - [facility] 0.90 LABORATORIES - X10(9)/L [facility] Eosinophils 0.19 0.05 - [facility] 0.50 LABORATORIES - X10(9)/L [facility] Basophils 0.02 0.00 - [facility] 0.30 LABORATORIES - X10(9)/L [facility] Hemoglobin 10.0 (L) 13.5 - [facility] 17.5 G/DL LABORATORIES - [facility] Hematocrit 29.0 (L) 38.8 - [facility] 50.0 % LABORATORIES - [facility] Leukocytes 7.6 3.5 - [facility] 10.5 LABORATORIES - X10(9)/L [facility] Neutrophils 4.04 1.70 - [facility] 7.00 LABORATORIES - X10(9)/L [facility] Specimen Anatomical Collection Method Collection Time Receive d Time (Source) Location / / Volume Laterality 03/21/2012 5:20 AM 2 5:20 CDT AM CDT May Ballesteros P.A.-C. LAB BLOOD NON ADD-ON Performing Organization Address City/[facility] Code Phon e Number [facility] LABORATORIES - [address] [address] [facility] Tacrolimus Level (03/21/2012 5:20 AM CDT) Analysis Performed At Patho logist Time Signature Tacrolimus, B 10.6 5.0-15.0 [facility] (Trough) LABORATORIES - NG/ML [facility] Tacrolimus . [facility] Blood Date of LABORATORIES - Last Dose [facility] Comment: Not Specified Tacrolimus Time of Last Dose . [facility] LABORATORIES - [facility] Comment: Not Specified Tacrolimus Blood Dose, mg . MG [facility] LABORATORIES - [facility] Comment: Not Specified Specimen Anatomical Collection Method Collection Time Receive d Time (Source) Location / / Volume Laterality 03/21/2012 5:20 AM 2 5:20 CDT AM CDT May Ballesteros P.A.-C. LAB BLOOD NON ADD-ON Performing Organization Address City/State/[facility] Phon e Number [facility] LABORATORIES - [address] [address] [facility] DX Hand 2 Views And Wrist [...] articulations. Electronically signed by: Dorene Menendez [id number] 20-Mar-2012 16:54 Filiberto Antony M.D. IM DIAGNOSTIC IMAGING [facility] Microbiology Reports (03/20/2012 12:33 PM CDT) Specimen Anatomical Collection Method Collection Time Receive d Time (Source) Location / / Volume Laterality 03/20/2012 12:33 03/20/2012 PM CDT 12:34 PM CDT Narrative [facility], [place] - 03/25/2012 6:30 PM CDT 20-MAR-2012 BLOOD, ARM RIGHT ? SoftOrd# [id number] ?(Specimen Collected 12:33; Received 20-MAR-2012 13:35) ?[facility] ?BACTERIA/RIMMA CULTURE, BLOOD ? (Reported 25-MAR-2012 18:30) FINAL ?No growth after 5 days of in cubation. Procedure Note 10/01/2017 20-MAR-2012 BLOOD, ARM RIGHT SoftOrd# [id number] (Specimen Collected 20-MAR-2012 12:33; Received 20-MAR-2012 13:35) [facility] BACTERIA/RIMMA CULTURE, BLOOD (Repor onel 25-MAR-2012 18:30) FINAL No growth after 5 days of incubation. May Ballesteros P.A.-C. LAB MICROBIOLOGY - GENERAL O RDERABLES Performing Organization Address City/State/[facility] Code Phon e Number [facility] - [address] [place], [place] [address] [facility] Microbiology Reports (03/20/2012 12:32 PM CDT) Specimen Anatomical Collection Method Collection Time Receive d Time (Source) Location / / Volume Laterality 03/20/2012 12:32 03/20/2012 PM CDT 12:32 PM CDT Narrative [facility] - [facility] - 03/27/2012 2:55 PM CDT 20-MAR-2012 BLOOD, ARM LEFT ?SoftOrd# [id number] ?(Specimen Collected 12:32; Received 20-MAR-2012 13:34) ?[facility] Additional Report ?BACTERIA/RIMMA CULTURE, BLOOD ? (Reported 27-MAR-2012 14:55) FINAL ?ENTEROCOCCUS FAECALIS ??Grow th after 16 Hours ?- ? Previous comment was modified at 19:08 on 03/24/2012: 2 of 3 Bottles, Susceptibilities performed ? on another specimen 6 [id number] ? Previous comment was modified at 12:47 on 03/22/2012: 1 of 3 Bottles, ?Susceptibilities requested b y phone. ?S=Susceptible; I=Intermed iate; R=Resistant; N=Not susceptible; D=Dose-dependent susceptible; ?Results in mcg/mL ?ENTEROCOCCUS FAECALIS ?Penicillin ?1 S ?Gent Synergy ?<=500 S ?Vancomycin ?<=2 S ?Daptomycin ?1 S Procedure Note 10/01/2017 20-MAR-2012 BLOOD, ARM LEFT SoftOrd# [id number] (Specimen Collected 20-MAR-2012 12:32; Received 20-MAR-2012 13:34) [facility] Additional Report BACTERIA/RIMMA CULTURE, BLOOD (Repor onel 27-MAR-2012 14:55) FINAL ENTEROCOCCUS FAECALIS Growth after 16 H ours - Previous comment was modified at 19:08 on 03/24/2012: 2 of 3 Bottles, Susceptibilities performed on another specimen [id number] Previous comment was modified at 12:47 on [...] [facility] - [address] [place], [place] [address] [facility] US Abdomen and Abdomen Doppler (03/20/2012 [...] signed by: ?? Evelio Roman MD [id number] 20-Mar-2012 09:46 Procedure Note Evelio Roman M.D. [...] P athologist Signature HXABO/RH BLOOD O Pos [facility] TYPE LABORATORIES [facility] Specimen (Source) Anatomical Collection Method Collection Time Re ceived Time Location / / Volume Laterality 03/20/2012 5:36 AM CDT Historical Provider LAB BLOOD BANK TEST ORDERABL ES Performing Organization Address City/State/ZIP Code Phon e Number [facility] - [address] [place], [place] [address] [facility] Antibody Screen, RBC (03/20/2012 5:36 AM CDT) Patholo gist Method Time Signature Antibody Negative [facility] Screen LABORATORIES [facility] Specimen (Source) Anatomical Collection Method Collection Time Re ceived Time Location / / Volume Laterality 03/20/2012 5:36 AM CDT Historical Provider LAB BLOOD BANK TEST ORDERABL ES Performing Organization Address City/State/ZIP Code Phon e Number [facility] - [address] [place], [place] [address] [facility] Ammonia, Arterial (03/20/2012 5:23 AM CDT) [facility] gist Method Time Signature Ammonia, <10 SeeComment MCG [facility] Arterial N/DL LABORATORIES - [facility] Comment: Reference Range: ? The reference interval for ? venous ammonia is <50 mcg ? N/dL. Reference intervals for ? arterial ammonia have not ? been established. Results ? should be interpreted in ? conjunction with clinical ? findings. ? Time of Assay [facility] Specimen Anatomical Collection Method Collection Time Receive d Time (Source) Location / / Volume Laterality 03/20/2012 5:23 AM 2 5:23 CDT AM CDT May Ballesteros P.A.-C. LAB BLOOD NON ADD-ON Performing Organization Address City/State/ZIP Code Phon e Number [facility] - [address] [place], [place] [address] [facility] (ABNORMAL) Blood Gas with Coox, Arterial (03/20/2012 5:23 AM CDT) [facility] gist Method Time Signature Arterial R-Radial [facility] Sample Site [facility] FIO2 0.21 .21=AIR [facility] Spont. 20 [facility] breaths/min [facility] pO2 87 80 - 100 [facility] MM HG [facility] Base Excess -4 (L) -2 - 2 [facility] MMOL/L [facility] HCO3 20 (L) 22 - 26 [facility] MMOL/L [facility] Hb 9.4 (L) 13.5 - [facility] 17.5 G/DL [facility] O2Hb 95.0 94.0 - [facility] 98.0 % [facility] COHb <1.0 <3.0 % [facility] MetHb <1.0 <1.6 % [facility] CtO2 12.6 (L) 21.0 - [facility] 23.0 VOL LABORATORIES - % [facility] pCO2 34 (L) 35 - 45 [facility] MM HG LABORATORIES - [facility] pH 7.40 7.35 - [facility] 7.45 PH LABORATORIES [facility] Specimen Anatomical Collection Method Collection Time Receive d Time (Source) Location / / Volume Laterality 03/20/2012 5:23 AM 2 5:23 CDT AM CDT May Ballesteros P.A.-C. LAB BLOOD NON ADD-ON Performing Organization Address City/[facility]/ZIP Code Phon e Number [facility] - [address] [place] [address] [facility] (ABNORMAL) Electrolyte (Chem 4) Panel (03/20/2012 5:20 AM CDT) [facility] Method Time Signature Sodium, S 129 (L) 135 - 145 [facility] MMOL/L LABORATORIES [facility] Potassium, S 4.1 3.6 - 5.2 [facility] MMOL/L LABORATORIES [facility] Creatinine 1.2 0.8 - 1.3 [facility] MG/DL LABORATORIES [facility] eGFR >60 >60 [facility] Non-Black/Afric ML/MIN/BS LABORATORIES - [facility] Anion Gap 8 7 - 15 [facility] Glucose, S 183 (H) 70 - 140 [facility] MG/DL [facility] Chloride, S 101 100 - 108 [facility] MMOL/L [facility] HX Bicarbonate, 20 (L) 22 - 29 [facility] P/S MMOL/L [facility] eGFR-Black/Afri >60 >60 [facility] can [place] ML/MIN/BS LABORATORIES - [facility] BUN (Blood Urea 39 (H) 8 - 24 [facility] Nitrogen), S MG/DL LABORATORIES - [facility] Specimen Anatomical Collection Method Collection Time Receive d Time (Source) Location / / Volume Laterality 03/20/2012 5:20 AM 2 5:20 CDT AM CDT May Ballesteros P.A.-C. LAB BLOOD ADD-ON Performing Organization Address City/[facility] Code Phon e Number [facility] - [address] [place] [address] [facility] (ABNORMAL) Bilirubin, Direct (03/20/2012 5:20 AM CDT) [facility] Method Time Signature Bilirubin, 9.6 (H) 0.0 - 0.3 [facility] Direct, S MG/DL [facility] Specimen Anatomical Collection Method Collection Time Receive d Time (Source) Location / / Volume Laterality 03/20/2012 5:20 AM 2 5:20 CDT AM CDT May Ballesteros P.A.-C. LAB BLOOD ADD-ON Performing Organization Address City/[facility] Phon e Number [facility] - [address] [place] [address] [facility] (ABNORMAL) Electrophoresis, Protein (03/20/2012 5:20 AM CDT) [facility] Method Time Signature Total Protein, 5.7 (L) 6.3 - 7.9 [facility] S G/DL [facility] Albumin 2.2 (L) 3.4 - 4.7 [facility] G/DL [facility] Beta-Globulin 0.8 0.7 - 1.2 [facility] G/DL [facility] Gamma-Globulin 1.4 0.6 - 1.6 [facility] G/DL [facility] A/G Ratio 0.64 [facility] Impression . [facility] Comment: No apparent monoclonal protein on serum electrophoresis. Alpha-1 Globulin 0.5 (H) 0.1 - 0.3 G/DL [facility] Alpha-2 Globulin 0.8 0.6 - 1.0 G/DL [facility] Specimen Anatomical Collection Method Collection Time Receive d Time (Source) Location / / Volume Laterality 03/20/2012 5:20 AM 2 5:20 CDT AM CDT May Ballesteros P.A.-C. LAB BLOOD ADD-ON Performing Organization Address City/[facility] Phon e Number [facility]IES - [address] [place] [address] [facility] (ABNORMAL) Ceruloplasmin (03/20/2012 5:20 AM CDT) [facility] Method Time Signature Ceruloplasmin, 35.7 (H) 15.0 - [facility] S 30.0 LABORATORIES - MG/DL [facility] Specimen Anatomical Collection Method Collection Time Receive d Time (Source) Location / / Volume Laterality 03/20/2012 5:20 AM 2 5:20 CDT AM CDT May Ballesteros P.A.-C. LAB BLOOD ADD-ON Performing Organization Address City/State/ZIP Code Phon e Number [facility] - [address] [place], [place] [address] [facility] PSA (Prostate-Specific Antigen) Screen (03/20/2012 5:20 AM CDT) athologist Signature Prostate-Speci 0.20 <=3.5 [facility] fic Ag NG/ML LABORATORIES - [facility] Comment: The testing method is an electrochemilum inescence ? assay manufactured by [employer] and ? performed on the [employer] or Didier system . ? Values obtained [...] P.A.-C. LAB BLOOD ADD-ON Performing Organization Address City/[facility] Code Phon e Number [facility]IES - [address] [place], [place] [address] [facility] Hepatitis B Core Total Ab (03/20/2012 5:20 AM CDT) Patholo gist Method Time Signature HBc Total Ab, Negative Negative [facility] S [facility] Specimen Anatomical Collection Method Collection Time Receive d Time (Source) Location / / Volume Laterality 03/20/2012 5:20 AM 2 5:20 CDT AM CDT May NyCDemetrius LAB MICROBIOLOGY - BLOOD ORD ERABLES Performing Organization Address City/[facility] Code Phon e Number [facility]IES - [address] [place], [place] [address] [facility] Thyroid Function Twilight (03/20/2012 5:20 AM CDT) P athologist Signature TSH, Sensitive 1.4 0.3 - 5.0 [facility] MIU/L LABORATORIES - [facility] Specimen Anatomical Collection Method Collection Time Receive d Time (Source) Location / / Volume Laterality 03/20/2012 5:20 AM 2 5:20 CDT AM CDT May Ballesteros P.A.-C. LAB BLOOD ADD-ON Performing Organization Address City/State/ZIP Code Phon e Number [facility]IES - [address] [place], [place] [address] [facility] Hepatitis B Surface, Ab (03/20/2012 5:20 AM CDT) [facility] Method Time Signature HBs Antibody,S Positive Unvaccina [facility] onel: LABORATORIES - Negative; [facility] d: Positive; Comment: Patient is considered to be imm une to infection with HBV. HBs Antibody, 20.8 Unvaccinated: <5.0; [facility] Quantitative, S Vaccinated: >=12.0; - [facility] MIU/ML Specimen Anatomical Collection Method Collection Time Receive d Time (Source) Location / / Volume Laterality 03/20/2012 5:20 AM 2 5:20 CDT AM CDT May Ballesteros P.A.-C. LAB MICROBIOLOGY - BLOOD ORD ERABLES Performing Organization Address City/State/ZIP Code Phon e Number [facility] LAB[facility]ATORIES - [address] [place], [place] [address] [facility] (ABNORMAL) Alkaline Phosphatase (03/20/2012 5:20 AM CDT) [facility] Method Time Signature Alkaline 241 (H) 45 - 115 [facility] Phosphatase, S U/L LABORATORIES - [facility] Specimen Anatomical Collection Method Collection Time Receive d Time (Source) Location / / Volume Laterality 03/20/2012 5:20 AM 2 5:20 CDT AM CDT May Ballesteros P.A.-C. LAB BLOOD ADD-ON Performing Organization Address City/[facility]/ZIP Code Phon e Number [facility] LABORATORIES - [address] [place] [address] [facility] 1,25-Dihydroxyvitamin D (03/20/2012 5:20 AM CDT) [facility] Method Time Signature 1, 25 30 18 - 64 [facility] DIHYDROXYVITAMIN D, PG/ML LABORATORI ES - S [facility] Specimen Anatomical Collection Method Collection Time Receive d Time (Source) Location / / Volume Laterality 03/20/2012 5:20 AM 2 5:20 CDT AM CDT May Ballesteros P.A.-C. LAB BLOOD ADD-ON Performing Organization Address City/State/ZIP Code Phon e Number [facility] - [address] [place] [address] [facility] PT (Prothrombin Time) with INR (03/20/2012 5:20 AM CDT) [facility] Method Time Signature Prothrombin 13.4 9.5 - 13.8 [facility] Time, P SEC [facility] INR 1.1 0.8 - 1.2 [facility] Specimen Anatomical Collection Method Collection Time Receive d Time (Source) Location / / Volume Laterality 03/20/2012 5:20 AM 2 5:20 CDT AM CDT May Ballesteros P.A.-C. LAB BLOOD ADD-ON Performing Organization Address City/State/ZIP Code Phon e Number [facility] LABORATORIES - [address] [place] [address] [facility] (ABNORMAL) Albumin (03/20/2012 5:20 AM CDT) P athologist Signature Albumin, S 2.6 (L) 3.5 - 5.0 [facility] G/DL LABORATORIES [facility] Specimen Anatomical Collection Method Collection Time Receive d Time (Source) Location / / Volume Laterality 03/20/2012 5:20 AM 2 5:20 CDT AM CDT May Ballesteros P.A.-C. LAB BLOOD ADD-ON Performing Organization Address City/State/ZIP Code Phon e Number [facility] LABORATORIES - [address] [place] [address] [facility] (ABNORMAL) Iron and Total Iron-Binding Capacity (03/20/2012 5:20 AM CDT) [facility] Method Time Signature Iron 46 (L) 50 - 150 [facility] MCG/DL LABORATORIES - [facility] Total Iron 156 (L) 250 - 400 [facility] Binding MCG/DL LABORATORIES - Capacity [facility] Percent 29 14 - 50 % [facility] Saturation LABORATORIES - [facility] Specimen Anatomical Collection Method Collection Time Receive d Time (Source) Location / / Volume Laterality 03/20/2012 5:20 AM 2 5:20 CDT AM CDT May Ballesteros P.A.-C. LAB BLOOD ADD-ON Performing Organization Address City/State/ZIP Code Phon e Number [facility] LAB[facility]ATORIES - [address] [place], [place] [address] [facility] (ABNORMAL) CBC with Differential (03/20/2012 5:20 AM CDT) [facility] Method Time Signature Erythrocytes 3.12 (L) 4.32 - [facility] 5.72 LABORATORIES - X10(12)/L [facility] MCV 84.0 81.2 - [facility] 95.1 FL LABORATORIES [facility] Leukocytes 7.5 3.5 - [facility] 10.5 LABORATORIES - X10(9)/L [facility] Neutrophils 5.14 1.70 - [facility] 7.00 LABORATORIES - X10(9)/L [facility] Eosinophils 0.07 0.05 - [facility] 0.50 LABORATORIES - X10(9)/L [facility] Basophils 0.01 0.00 - [facility] 0.30 LABORATORIES - X10(9)/L [facility] Hemoglobin 9.4 (L) 13.5 - [facility] 17.5 G/DL [facility] Hematocrit 26.2 (L) 38.8 - [facility] 50.0 % [facility] RBC Distrib 14.9 11.8 - [facility] Width 15.6 % [facility] Platelet Count 170 150 - 450 [facility] X10(9)/L [facility] Lymphocytes 1.33 0.90 - [facility] 2.90 LABORATORIES - X10(9)/L [facility] Monocytes 0.92 (H) 0.30 - [facility] 0.90 LABORATORIES - X10(9)/L [facility] Specimen Anatomical Collection Method Collection Time Receive d Time (Source) Location / / Volume Laterality 03/20/2012 5:20 AM 2 5:20 CDT AM CDT May Ballesteros P.A.-C. LAB BLOOD ADD-ON Performing Organization Address City/State/ZIP Code Phon e Number [facility] LABORATORIES - [address] [place], [place] [address] [facility] OZZIE (Antinuclear Antibodies) (03/20/2012 5:20 AM CDT) [facility] gist Method Time Signature Antinuclear Ab, 0.5 <=1.0 [facility] S (Negative) LABORATORIES - U [facility] Specimen Anatomical Collection Method Collection Time Receive d Time (Source) Location / / Volume Laterality 03/20/2012 5:20 AM 2 5:20 CDT AM CDT May Ballesteros P.A.-C. LAB BLOOD ADD-ON Performing Organization Address City/[facility]/ZIP Code Phon e Number [facility] LABORATORIES - [address] [place], [place] [address] [facility] (ABNORMAL) Calcium, Total (03/20/2012 5:20 AM CDT) [facility] Method Time Signature Calcium, 8.3 (L) 8.9 - 10.1 [facility] Total, S MG/DL LABORATORIES - [facility] Specimen Anatomical Collection Method Collection Time Receive d Time (Source) Location / / Volume Laterality 03/20/2012 5:20 AM 2 5:20 CDT AM CDT May Ballesteros P.A.-C. LAB BLOOD ADD-ON Performing Organization Address City/[facility]/ZIP Code Phon e Number [facility] LABORATORIES - [address] [place], [place] [address] [facility] Mitochondrial Antibodies (M2) (03/20/2012 5:20 AM CDT) [facility] gist Method Time Signature Mitochondrial Ab, <0.1 <0.1 [facility] M2, S (Negative LABORATORIES - ) U [facility] Specimen Anatomical Collection Method Collection Time Receive d Time (Source) Location / / Volume Laterality 03/20/2012 5:20 AM 2 5:20 CDT AM CDT May Ballesteros P.A.-C. LAB BLOOD ADD-ON Performing Organization Address City/State/ZIP Code Phon e Number [facility] LABORATORIES - [address] [place] [address] [facility] (ABNORMAL) Ferritin (03/20/2012 5:20 AM CDT) P athologist Signature Ferritin, S 638 (H) 24 - 336 [facility] MCG/L [facility] Specimen Anatomical Collection Method Collection Time Receive d Time (Source) Location / / Volume Laterality 03/20/2012 5:20 AM 2 5:20 CDT AM CDT May Ballesteros P.A.-C. LAB BLOOD ADD-ON Performing Organization Address City/[facility]/ZIP Code Phon e Number [facility] LABORATORIES - [address] [place] [address] [facility] Phosphorus Inorganic (03/20/2012 5:20 AM CDT) Analysis Performed At Patho logist Time Signature Phosphorus 3.6 2.5 - 4.5 [facility] (Inorganic), S MG/DL [facility] Specimen Anatomical Collection Method Collection Time Receive d Time (Source) Location / / Volume Laterality 03/20/2012 5:20 AM 2 5:20 CDT AM CDT May Ballesteros P.A.-C. LAB BLOOD ADD-ON Performing Organization Address City/State/ZIP Code Phon e Number [facility] LABORATORIES - [address] [place] [address] [facility] (ABNORMAL) Vitamin A and Vitamin E (03/20/2012 5:20 AM CDT) Patholo gist Method Time Signature A-Tocopherol, 2.7 (L) 5.5 - 17.0 [facility] Vitamin E MG/L [facility] Comment: In this sample, the alpha-tocopherol (vi tamin E) level indicates a severe ? deficiency. ? Vitamin A 18.6 (L) 32.5 - 78.0 MCG/DL [facility]ATOR[facility] Specimen Anatomical Collection Method Collection Time Receive d Time (Source) Location / / Volume Laterality 03/20/2012 5:20 AM 2 5:20 CDT AM CDT May Ballesteros P.A.-C. LAB BLOOD NON ADD-ON Performing Organization Address City/[facility] Phon e Number [facility] LABORATORIES - [address] [place] [address] [facility] Smooth Muscle Antibodies (03/20/2012 5:20 AM CDT) [facility] gist Method Time Signature Smooth Muscle Negative Negative [facility] Antibody, S LABORATORIES [facility] Specimen Anatomical Collection Method Collection Time Receive d Time (Source) Location / / Volume Laterality 03/20/2012 5:20 AM 2 5:20 CDT AM CDT May Ballesteros P.A.-C. LAB BLOOD ADD-ON Performing Organization Address City/[facility]/ZIP Code Phon e Number [facility] LABORATORIES - [address] ALT (Alanine Aminotransferase) (03/20/2012 5:20 AM CDT) [facility] gist Method Time Signature Alanine 49 7 - 55 [facility] Aminotransferase U/L LABORATORIES - (ALT), S [facility] Specimen Anatomical Collection Method Collection Time Receive d Time (Source) Location / / Volume Laterality 03/20/2012 5:20 AM 2 5:20 CDT AM CDT May Ballesteros P.A.-C. LAB BLOOD ADD-ON Performing Organization Address City/[facility] Code Phon e Number [facility] LABORATORIES - [address] [place] [address] [facility] AFP (Alpha-Fetoprotein), Tumor Marker (03/20/2012 5:20 AM CDT) P athologist Signature Alpha-Fetoprot 0.7 <6.0 NG/ML [facility] ein, Tumor LABORATORIES - [place], [facility] [place] Comment: The testing method is an immunoenzymatic assay ? manufactured by [employer]. and performed ? on the [employer] [...] / / Volume Laterality 03/20/2012 5:20 AM 03/20/ 2 5:20 CDT AM CDT May Ballesteros P.A.-C. LAB BLOOD ADD-ON Performing Organization Address [facility]/ZIP Code Phon e Number [facility] - [address] [place] [address] [facility] Hepatitis B Surface Antigen (03/20/2012 5:20 AM CDT) [facility] Method Time Signature HBs Antigen, Negative Negative [facility] S [facility] Specimen Anatomical Collection Method Collection Time Receive d Time (Source) Location / / Volume Laterality 03/20/2012 5:20 AM 2 5:20 CDT AM CDT May Ballesteros P.A.-C. LAB MICROBIOLOGY - BLOOD ORD ERABLES Performing Organization Address [facility] Phon e Number [facility] - [address] [place] [address] [facility] (ABNORMAL) Lipid Panel (03/20/2012 5:20 AM CDT) [facility] Method Time Signature Cholesterol, <5 (L) SeeComment [facility] HDL, S MG/DL [facility] Comment: The decreased HDL cholesterol (<5 mg/dL) [...] or =60 ? Calculated LDL . MG/DL [facility] LAB [facility] [place] Comment: Unable to quantitate ? LpX was detected in this sample and is i ncluded as a ? portion of LDL cholesterol, suggesting t he possibility of ? cholestasis. ??LDL cholesterol cannot be accurately ? quantitated in the presence of LpX. Ques tions regarding ? this report may be directed to the CVLM control panel tester oracle wms consultant ? by calling [phone]. ? Cholesterol, Non-HDL, Calculated . MG/DL [facility] Comment: Unable to quantitate Cholesterol, Total 148 SeeComment MG/DL [facility] Comment: Reference Range: ? NCEP guidelines ? (ages 18y and up) ? Desirable: <200 ? Borderline high: 200-239 ? High: > or =240 ? Triglycerides 190 SeeComment MG/DL [facility] Comment: Reference Range: ? NCEP [...] [facility] - [address] [place], [place] [address] [facility] (ABNORMAL) Bilirubin, Total (03/20/2012 5:20 AM CDT) Patholo gist Method Time Signature Bilirubin, 12.2 (H) 0.1 - 1.0 [facility] Total, S MG/DL [facility] Specimen Anatomical Collection Method Collection Time Receive d Time (Source) Location / / Volume Laterality 03/20/2012 5:20 AM 2 5:20 CDT AM CDT May Ballesteros P.A.-C. LAB BLOOD ADD-ON Performing Organization Address City/State/ZIP Code Phon e Number [facility] - [address] [place], [place] [address] [facility] Vancomycin, Trough (03/20/2012 5:20 AM CDT) [facility] Method Time Signature Vancomycin, 16.2 SeeComment [facility] Trough, S MCG/ML [facility] Comment: Reference Range: ? 10.0 - 20.0 (Therapeutic concentration), 15.0 - 20.0 ? (Complicated infections) ? Specimen Anatomical Collection Method Collection Time Receive d Time (Source) Location / / Volume Laterality 03/20/2012 5:20 AM 2 5:20 CDT AM CDT May Ballesteros P.A.-C. LAB BLOOD NON ADD-ON Performing Organization Address City/[facility]/ZIP Code Phon e Number [facility] LABORATORIES - [address] [place] [address] [facility] AST (Aspartate Aminotransferase) (03/20/2012 5:20 AM CDT) P athologist Signature AST, Total, S 46 8 - 48 U/L [facility] Specimen Anatomical Collection Method Collection Time Receive d Time (Source) Location / / Volume Laterality 03/20/2012 5:20 AM 2 5:20 CDT AM CDT May Ballesteros P.A.-C. LAB BLOOD ADD-ON Performing Organization Address City/[facility] Code Phon e Number [facility] LABORATORIES - [address] [address] [facility] 25-Hydroxyvitamin D2 and D3 (03/20/2012 5:20 AM CDT) Patholo gist Method Time Signature 25-Hydroxy D2 <4.0 NG/ML [facility] 25-Hydroxy D3 38 NG/ML [facility] 25-Hydroxy D 38 SeeComment [facility] Total NG/ML [facility] Comment: Reference Range: ? 25-HYDROXY D TOTAL (D2+D3) ? Optimum levels in the normal population are 25-80 ? Specimen Anatomical Collection Method Collection Time Receive d Time (Source) Location / / Volume Laterality 03/20/2012 5:20 AM 2 5:20 CDT AM CDT May Ballesteros P.A.-C. LAB BLOOD ADD-ON Performing Organization Address [facility]/ZIP Code Phon e Number [facility] LABORATORIES - [address] [address] [facility] (ABNORMAL) GGT (Gamma-Glutamyltransferase) (03/20/2012 5:20 AM CDT) Component Value Ref Test Analysis Performed At [facility] gist Range Method Time Signature Gamma 167 (H) 12 - 48 [facility] Glutamyltransferase U/L LABORATORI ES - (GGT), S [facility] Specimen Anatomical Collection Method Collection Time Receive d Time (Source) Location / / Volume Laterality 03/20/2012 5:20 AM 2 5:20 CDT AM CDT May Ballesteros P.A.-C. LAB BLOOD ADD-ON Performing Organization Address City/[facility]/ZIP Code Phon e Number [facility] LABORATORIES - [address] [address] [facility] PTH (Parathyroid Hormone) (03/20/2012 5:20 AM CDT) [facility] gist Method Time Signature Parathyroid 17 15 - 65 [facility] Hormone (PTH), S PG/ML [facility] Specimen Anatomical Collection Method Collection Time Receive d Time (Source) Location / / Volume Laterality 03/20/2012 5:20 AM 2 5:20 CDT AM CDT May Ballesteros P.A.-C. LAB BLOOD ADD-ON Performing Organization Address City/[facility]/ZIP Code Phon e Number [facility] - [address] [address] [facility] Adulterants Survey, Urine (03/19/2012 6:00 PM CDT) R2G Method Time Signature Creatinine, U 97.4 MG/DL [facility] (w/ADULT) [facility] Specific 1.022 [facility] [place] [facility] - [facility] pH 5.3 [facility] Oxidants Negative [facility] Specimen Anatomical Collection Method Collection Time Receive d Time (Source) Location / / Volume Laterality 03/19/2012 6:00 PM 2 6:00 CDT PM CDT May Ballesteros P.A.-C. LAB URINE ORDERABLES Performing Organization Address City/State/ZIP Code Phon e Number [facility] - [address] [address] [facility] Drug Abuse Survey, Urine (03/19/2012 6:00 PM CDT) R2G Method Time Signature Alcohol Negative Cutoff: [facility] 30 MG/DL [facility] Amphetamines, U Negative Cutoff: [facility] 500 NG/ML [facility] Phencyclidine Negative Cutoff: [facility] 25 NG/ML [facility] Tetrahydrocannabi Negative Cutoff: [facility] nol, U 20 NG/ML [facility] Comment: The drugs listed above are detected by keon martinez. ??Call the lab to initiate ? confirmatory testing if needed. ??Specim ens are retained in the laboratory for ? two weeks. ??This test is not intended f or use in employment-related testing. ? Barbiturates Screen Negative Cutoff: 200 NG/ML [facility] Benzodiazepines, U Negative Cutoff: 200 NG/ML [facility] Cocaine, Screen, U Negative Cutoff: 150 NG/ML [facility] Opiates . Cutoff: 300 NG/ML [facility] Comment: Presumptive Positive Specimen Anatomical Collection Method Collection Time Receive d Time (Source) Location / / Volume Laterality 03/19/2012 6:00 PM 2 6:00 CDT PM CDT May Ballesteros P.A.-C. LAB URINE ORDERABLES Performing Organization Address City/[facility]/ZIP Code Phon e Number [facility] - [address] [place] [address] [facility] (ABNORMAL) Microscopic Manual (03/19/2012 6:00 PM CDT) [facility] Method Time Signature Microscopy Abnormal [facility] Blood <3 <3; /HPF [facility] WBC 1-3 1-3 [facility] (Males); LABORATORIES - 1-10 [facility] (Females) [place] ; /HPF Casts, Hyaline Occas /LPF [facility] Granular Casts Occas (A) /LPF [facility] Renal 1-3 (A) /HPF [facility] Epithelial LABORATORIES - Cells [facility] Crystals . [facility] Comment: Amorphous crystals present Specimen Anatomical Collection Method Collection Time Receive d Time (Source) Location / / Volume Laterality 03/19/2012 6:00 PM 2 6:00 CDT PM CDT May Ballesteros P.A.-C. LAB URINE ORDERABLES Performing Organization Address City/[facility]/ZIP Code Phon e Number [facility] - [address] [place] [address] [facility] (ABNORMAL) Urinalysis with Microscopic (03/19/2012 6:00 PM CDT) [facility] Method Time Signature Source Catheter [facility] Appearance Bhakti Normal [facility] Glucose 22 (H) 0 - 15 [facility] MG/DL [facility] Protein, U 76 (H) 0 - 19 [facility] MG/DL LABORATORIES - [facility] Osmolality, 24 477 150 - 1150 [facility] HR, U MOSM/KG [facility] pH, 24 HR, U 5.5 4.5 - 8.0 [facility] Protein/Osmola 1.59 (H) <0.12 RATIO [facility] lity LABORATORIES [facility] Predicted 24 1468 MG/24 H [facility] Hr Protein LABORATORIES [facility] Bilirubin Positive Negative [facility] (A) [facility] Hemoglobin, QL Trace (A) Negative [facility] Predicted [phone] MG/24 H [facility] Range LABORATORIES [facility] Specimen Anatomical Collection Method Collection Time Receive d Time (Source) Location / / Volume Laterality 03/19/2012 6:00 PM 2 6:00 CDT PM CDT May Ballesteros P.A.-C. LAB URINE ORDERABLES Performing Organization Address City/State/ZIP Code Phon e Number [facility] LABORATORIES - [address] [place] [address] [facility] V&IRAD Vascular & Intervention (03/19/2012 3:26 [...] and fellows were discussed. Sedation provided by TAPROOM ATTENDANT. ?? Electronically signed by: ?? C. Bert PETTIT [phone] 19-Mar-2012 16:17 ?Alan Hale MD [phone] 19-Mar-2012 16:17 Procedure Note Austin Noel M.D. [...] fellows were dis cussed. Sedation provided by TAPROOM ATTENDANT. Electronically signed by: Janette Noel MD [phone] 19-Mar-2012 16:17 B enriqueta Hale MD [phone] 19-Mar-2012 16:17 Tomeka Rolon M.D. IMG IR PROCEDURES DX Paranasal Sinuses 3+ Views [...] Electronically signed by: ?? Janette Brown MD [phone] 19-Mar-2012 13:21 Procedure Note Tres Brown M.D. - 09/20/2017Fo rmatting of this note might be different from the original. 19-Mar-2012 13:12:00 Exam: Sinuses 3vw Indications: pre-transplant eval ORIGINAL REPORT - 19-Mar-2012 13:21:00 Sinus x-ray, minimum of three views: Postoperative changes to the orbits and paranasal sinuses but nothing for mucosal thickening or fluid. Electronically signed by: Janette Brown MD [phone] 19-Mar-2012 13:21 Curt [facility] PROCE DURES DX Chest [...] Electronically signed by: ?? Aly Kirby MD. ??[phone] 19-Mar-2012 13:2 8 Procedure Note Sandra Kirby [...] negative. Electronically signed by: Aly Kirby MD. [phone] 19-Mar-2012 13:28 Curt [facility] PROCE DURES Hemochromatosis HFE Gene Analysis, Blood (03/19/2012 10:43 AM CDT) Specimen (Source) Anatomical Collection Method Collection Time Re ceived Time Location / / Volume Laterality 03/19/2012 10:43 AM CDT Narrative [facility] - 03/20/2012 8:44 PM CDT [id number] 10:43 ?Hemochromatosis HFE Gene Analysis,B Requested By: May Ballesteros PA-C ? Specimen ?Specimen ID ??LabID ? Test No. ?--- ------- ??--------- Blood ? [id number] ?? [id number] ?[id number] ? RESULT C282Y: ??Not detected. H63D: ?? Not detected. INTERPRETATION This result suggests a low risk for eith er a diagnosis of or predisposition for hereditary hemochroma tosis (HH). The diagnosis of HH cannot be excluded b ecause approximately 5 to 8% of patients with HH in a [facility] population do not have either the C282Y [...] d onors will interfere with testing. Call [facility]eda for instructions for testing patients [...] 19 Mar 2012 11:09 Procedure Note 10/13/2017 [id number] 10:43 Hemochromatosis HFE Gene Analysis,B Requested By: May Ballesteros PA-C Specimen Specimen ID LabID Test No. ------- --- --------- Blood [id number] RESULT C282Y: Not detected. H63D: Not detected. INTERPRETATION This result suggests a low risk for eith er a diagnosis of or predisposition for hereditary hemochroma tosis (HH). The diagnosis of HH cannot be excluded b ecause approximately 5 to 8% of patients with HH in a [place] [facility] population do not have either [...] d onors will interfere with testing. Call [facility] Smooth naylor for instructions for testing patients who de [...] [facility] - [address] [place], [place] [address] [facility] HCV RNA Detect / Quant, S (03/19/2012 10:42 AM CDT) [facility] Method Time Signature HX HCV RNA Undetected Undetected [facility] Detect/Quant IU/ML LABORATORIES - , S [facility] Comment: Result in log IU/mL is Undetected. ? The quantification range of this assay i s 43 IU/mL to 69,000,000 IU/mL (1.63 ? log IU/mL to 7.84 log IU/mL). Testing wa s performed by the [employer] ? AmpliPrep/[employer]IER TaqMan HCV Test ([employer] ? Specimen Anatomical Collection Method Collection Time Receive d Time (Source) Location / / Volume Laterality 03/19/2012 10:42 03/19/2012 AM CDT 10:42 AM CDT May Ballesteros P.A.-C. LAB MICROBIOLOGY - BLOOD ORD ERABLES Performing Organization Address City/State/[facility] Phon e Number [facility] LABORATORIES - [address] [place], [place] [address] [facility] HLA Class II SAB Antibody Screen (03/19/2012 10:42 AM CDT) [facility] gist Method Time Signature SAB DRB1 . [facility] Specificity LABORATORIES - [facility] Comment: 4[500], 18[412] ? Format: Serologic Equivalent[Normalized Value] ? shown in decreasing order. Note: A serol ogic equivalent ? displayed multiple times could indicate different alleles. ? SAB [id number] Specificity NONE [facility] Class II SAB Overall Result Positive Not Applicable [facility] Class II SAB cPRA [address] [facility] Comment: This PRA is a [facility] Tiss ue Typing ? Laboratory calculated PRA. PRA is based on the antigen ? frequency of the Tissue Typing patient a nd donor ? population. ??PRA reflects all antibodie s with a normalized ? value (MFI) above 300. ? SAB DQB1 Specificity . [facility] Comment: 6[1262] ? Format: Serologic Equivalent[Normalized [...] Code Phon e Number [facility] - [address] [place], [place] [address] [facility] (ABNORMAL) Cytomegalovirus Ab, IgM and IgG (03/19/2012 10:42 AM CDT) [facility] gist Method Time Signature HX Cmv-Igg >=60 <4 AU/ML [facility] HX Cmv-Igm Equivocal (A) Negative [facility] Comment: Recommend follow-up testing in 10-14 day s if clinically ? indicated. ? Specimen Anatomical Collection Method Collection Time Receive d Time (Source) Location / / Volume Laterality 03/19/2012 10:42 03/19/2012 AM CDT 10:42 AM CDT May Ballesteros P.A.-C. LAB MICROBIOLOGY - BLOOD ORD ERABLES Performing Organization Address City/State/ZIP Code Phon e Number [facility] LABORATORIES - [address] [place], [place] [address] [facility] HIV-1/-2 Ab Evaluation (03/19/2012 10:42 AM CDT) [facility] gist Method Time Signature HX Hiv-1/-2 Negative Negative [facility] Ab Screen, S LABORATORIES - [facility] Comment: If this test is ordered [...] - BLOOD ORD ERABLES Performing Organization Address [facility]/ZIP Code Phon e Number [facility] LABORATORIES - [address] Troponin T (03/19/2012 10:42 AM CDT) P athologist Signature Troponin T, S <0.01 <0.01 [facility] NG/ML [facility] Specimen Anatomical Collection Method Collection Time Receive d Time (Source) Location / / Volume Laterality 03/19/2012 10:42 03/19/2012 AM CDT 10:42 AM CDT May Ballesteros P.A.-C. LAB BLOOD ADD-ON Performing Organization Address City/[facility] Code Phon e Number [facility] LABORATORIES - [address] HX Syphilis Antibody Twilight, S (03/19/2012 10:42 AM CDT) [facility] gist Method Time Signature HX Syphilis Negative Negative [facility] Igg Ab LABORATORIES - W/Reflex, S [facility] Specimen Anatomical Collection Method Collection Time Receive d Time (Source) Location / / Volume Laterality 03/19/2012 10:42 03/19/2012 AM CDT 10:42 AM CDT May Ballesteros P.A.-C. LAB HISTORICAL ORDERS Performing Organization Address [facility] Phon e Number [facility] LABORATORIES - [address] Hepatitis A Total Ab, S (03/19/2012 10:42 AM CDT) [facility] gist Method Time Signature Hepatitis A Negative Negative [facility] Total Ab, S LABORATORIES - [facility] Specimen Anatomical Collection Method Collection Time Receive d Time (Source) Location / / Volume Laterality 03/19/2012 10:42 03/19/2012 AM CDT 10:42 AM CDT May Ballesteros P.A.-C. LAB MICROBIOLOGY - BLOOD ORD ERABLES Performing Organization Address City/State/ZIP Code Phon e Number [facility] LABORATORIES - [address] [place], [place] [address] [facility] HLA Class I SAB Antibody Screen (03/19/2012 10:42 AM CDT) [facility] gist Method Time Signature Class I SAB Positive Not Applicable [facility] Overall LABORATORIES - Result [facility] Class I SAB 0 [facility] cPRA LABORATORIES - [facility] Comment: This PRA is a [facility] Tiss ue Typing ? Laboratory calculated PRA. PRA is based on the antigen ? frequency of the Tissue Typing patient a nd donor ? population. ??PRA reflects all antibodie s with a normalized ? value (MFI) above 300. ? SAB A Specificity . [facility] Comment: 80[307] ? Format: Serologic Equivalent[Normalized Value] ? shown in decreasing order. Note: A serol ogic equivalent ? displayed multiple times could indicate different alleles. ? SAB B Specificity . [facility] Comment: 75[511] ? Format: Serologic Equivalent[Normalized Value] ? shown in decreasing order. Note: A serol ogic equivalent ? displayed multiple times could indicate different alleles. ? SAB C Specificity NONE [facility] Comment: Method: Luminex Flow Cytometry Specimen Anatomical Collection Method Collection Time Receive d Time (Source) Location / / Volume Laterality 03/19/2012 10:42 03/19/2012 AM CDT 10:42 AM CDT May Ballesteros P.A.-C. LAB HLA ORDERABLES Performing Organization Address City/State/ZIP Code Phon e Number [facility] - [address] [address] [facility] (ABNORMAL) Zinc (03/19/2012 10:42 AM CDT) P athologist Signature Zinc, S 0.41 (L) 0.66 - [facility] 1.10 LABORATORIES - MCG/ML [facility] Specimen Anatomical Collection Method Collection Time Receive d Time (Source) Location / / Volume Laterality 03/19/2012 10:42 03/19/2012 AM CDT 10:42 AM CDT May Ballesteros P.A.-C. LAB BLOOD NON ADD-ON Performing Organization Address City/[facility]/ZIP Code Phon e Number [facility] LABORATORIES - [address] [address] [facility] (ABNORMAL) Dzeun-7-Zvzeymtldep Phenotype (03/19/2012 10:42 AM CDT) Patholo gist Method Time Signature Gmtbm-6-Pwlqre 290 (H) 100 - 190 [facility] ypsin, S MG/DL LABORATORIES - [facility] Fnqtq-6-Tzeqdd MM BANDS [facility] ypsin LABORATORIES - Phenotype [facility] Specimen Anatomical Collection Method Collection Time Receive d Time (Source) Location / / Volume Laterality 03/19/2012 10:42 03/19/2012 AM CDT 10:42 AM CDT May Ballesteros P.A.-C. LAB BLOOD ADD-ON Performing Organization Address City/[facility]/ZIP Code Phon e Number [facility] LABORATORIES - [address] [address] [facility] Microbiology Reports (03/19/2012 9:46 AM CDT) Specimen Anatomical Collection Method Collection Time Receive d Time (Source) Location / / Volume Laterality 03/19/2012 9:46 AM 2 5:03 CDT PM CDT Narrative [facility] - 04/14/2012 1:26 PM CDT 19-MAR-2012 ABDOMINAL FLUID, ANTERIOR PIRATE ABDOMINAL WALL ABSCESS/PUS ?SoftOrd# [id number] ?(Specimen Collected 09:46; Received 19-MAR-2012 17:02) ?[facility] ?BACTERIAL CULTURE, ANAEROBIC ? (Reported 19-MAR-2012 22:49) [...] and/or anaerobic bacteria. [place] [phone] if ?further identification is cl inically required. [...] FINAL ?YEAST ?FUNGAL CULTURE, ROUTINE ? (Reported 14-APR-2012 13:26) FINAL ?RIMMA KRUSEI ?[place] ?Identified [...] FLUID, ANTERIOR PIRATE ABDOMINAL WALL ABSCESS/PUS SoftOrd# [id number] (Specimen Collected 19-MAR-2012 09:46; Received 19-MAR-2012 17:02) [facility] BACTERIAL CULTURE, ANAEROBIC (Reported 19-MAR-2012 22:49) CANCEL [...] or anaerobic bacteria[place] [phone] if further identification is clinically re quired. [...] Code Phon e Number [facility] - [address] [place], [place] [address] [facility] Microbiology Reports (03/19/2012 7:14 AM CDT) Specimen Anatomical Collection Method Collection Time Receive d Time (Source) Location / / Volume Laterality 03/19/2012 7:14 AM 2 7:15 CDT AM CDT Narrative [facility] - 03/22/2012 3:02 PM CDT 19-MAR-2012 ABDOMEN, SWAB ANTERIOR WALL ABCESS ? SoftOrd# [id number] ?(Specimen Collected 07:14; Received 19-MAR-2012 07:14) [facility] ?Bacterial aerobic susceptibi lities requested. ?GRAM STAIN ?(Reported 19-MAR-2012 11:12) FINAL ?Gram negative bacillus, Many . Gram positive coccus resembling STREPTOCOCCUS, Few. ?Gram positive bacillus, Few. ?BACTERIAL CULTURE, AEROBIC ?(Reported 22-MAR-2012 15:02) FINAL ?ENTEROCOCCUS FAECALIS ?3+ ?STAPHYLOCOCCUS COAGULASE-NEG ATIVE ??2+ ?If susceptibilities timi ed, call Ext. [phone] ?YEAST ?1+ [address] ?Previous comment was modifie d at 15:02 [...] 19-MAR-2012 ABDOMEN, SWAB ANTERIOR WALL ABCESS SoftOrd# [id number] (Specimen Collected 19-MAR-2012 07:14; Received 19-MAR-2012 07:14) [facility] Bacterial aerobic susceptibilities requ ested. GRAM STAIN (Reported 19-MAR-2012 11:12 ) FINAL Gram negative bacillus, Many. Gram posi tive coccus resembling STREPTOCOCCUS, Few. Gram positive bacillus, Few. BACTERIAL CULTURE, AEROBIC (Reported 3 15:02) FINAL ENTEROCOCCUS FAECALIS 3+ STAPHYLOCOCCUS COAGULASE-NEGATIVE 2+ If susceptibilities desired, call Ext. [phone] YEAST 1+ [address] Previous comment was modified at 15:02 on [...] - GENERAL O RDERABLES Performing Organization Address City/[facility]/ZIP Code Phon e Number [facility] - [address] PT (Prothrombin Time) with INR (03/19/2012 5:18 AM CDT) [facility] gist Method Time Signature Prothrombin 13.8 9.5 - 13.8 [facility] Time, P SEC LABORATORIES - [facility] INR 1.1 0.8 - 1.2 [facility] Specimen Anatomical Collection Method Collection Time Receive d Time (Source) Location / / Volume Laterality 03/19/2012 5:18 AM 2 5:18 CDT AM CDT Filiberto Antony M.D. LAB BLOOD ADD-ON Performing Organization Address City/[facility]/ZIP [facility] Phon e Number [facility] - [address] (ABNORMAL) AST (Aspartate Aminotransferase) (03/19/2012 5:18 AM CDT) Analysis Performed At Patho logist Time Signature AST, Total, S 61 (H) 8 - 48 U/L [facility] LABORATORIES [facility] Specimen Anatomical Collection Method Collection Time Receive d Time (Source) Location / / Volume Laterality 03/19/2012 5:18 AM 2 5:18 CDT AM CDT Filiberto Antony M.D. LAB BLOOD ADD-ON Performing Organization Address City/State/ZIP Code Phon e Number [facility] LABORATORIES - [address] [place], [place] [address] [facility] (ABNORMAL) CBC with Differential - No Alerts (03/19/2012 5:18 AM CDT) [facility] gist Method Time Signature Hemoglobin 10.6 (L) 13.5 - [facility] 17.5 G/DL LABORATORIES [facility] Hematocrit 30.0 (L) 38.8 - [facility] 50.0 % [facility] RBC Distrib 14.8 11.8 - [facility] Width 15.6 % [facility] Platelet Count 171 150 - 450 [facility] X10(9)/L LABORATORIES [facility] Lymphocytes 0.71 (L) 0.90 - [facility] 2.90 LABORATORIES - X10(9)/L [facility] Monocytes 1.08 (H) 0.30 - [facility] 0.90 LABORATORIES - X10(9)/L [facility] Erythrocytes 3.55 (L) 4.32 - [facility] 5.72 LABORATORIES - X10(12)/L [facility] MCV 84.5 81.2 - [facility] 95.1 [place] LABORATORIES [facility] Leukocytes 11.5 (H) 3.5 - [facility] 10.5 LABORATORIES - X10(9)/L [facility] Neutrophils 9.66 (H) 1.70 - [facility] 7.00 LABORATORIES - X10(9)/L [facility] Eosinophils 0.00 (L) 0.05 - [facility] 0.50 LABORATORIES - X10(9)/L [facility] Basophils 0.01 0.00 - [facility] 0.30 LABORATORIES - X10(9)/L [facility] Specimen Anatomical Collection Method Collection Time Receive d Time (Source) Location / / Volume Laterality 03/19/2012 5:18 AM 2 5:18 CDT AM CDT Filiberto Antony M.D. LAB BLOOD NON ADD-ON Performing Organization Address City/State/ZIP Code Phon e Number [facility] LABORATORIES - [address] [address] [facility] (ABNORMAL) Alkaline Phosphatase (03/19/2012 5:18 AM CDT) Patholo gist Method Time Signature Alkaline 299 (H) 45 - 115 [facility] Phosphatase, S U/L LABORATORIES [facility] Specimen Anatomical Collection Method Collection Time Receive d Time (Source) Location / / Volume Laterality 03/19/2012 5:18 AM 2 5:18 CDT AM CDT Filiberto Antony M.D. LAB BLOOD ADD-ON Performing Organization Address City/[facility]/ZIP Code Phon e Number [facility] LABORATORIES - [address] [address] [facility] (ABNORMAL) Calcium, Total (03/19/2012 5:18 AM CDT) Patholo gist Method Time Signature Calcium, 8.8 (L) 8.9 - 10.1 [facility] Total, S MG/DL LABORATORIES [facility] Specimen Anatomical Collection Method Collection Time Receive d Time (Source) Location / / Volume Laterality 03/19/2012 5:18 AM 2 5:18 CDT AM CDT Filiberto Antony M.D. LAB BLOOD ADD-ON Performing Organization Address City/[facility]/ZIP Code Phon e Number [facility] LABORATORIES - [address] [address] [facility] Magnesium (03/19/2012 5:18 AM CDT) P athologist Signature Magnesium, S 1.8 1.7 - 2.3 [facility] MG/DL LABORATORIES - [facility] Specimen Anatomical Collection Method Collection Time Receive d Time (Source) Location / / Volume Laterality 03/19/2012 5:18 AM 2 5:18 CDT AM CDT Filiberto Antony M.D. LAB BLOOD ADD-ON Performing Organization Address City/[facility]/ZIP Code Phon e Number [facility] LABORATORIES - [address] [address] [facility] (ABNORMAL) ALT (Alanine Aminotransferase) (03/19/2012 5:18 AM CDT) [facility] Method Time Signature Alanine 62 (H) 7 - 55 [facility] Aminotransferase U/L LABORATORIES - (ALT), S [facility] Specimen Anatomical Collection Method Collection Time Receive d Time (Source) Location / / Volume Laterality 03/19/2012 5:18 AM 2 5:18 CDT AM CDT Filiberto Antony M.D. LAB BLOOD ADD-ON Performing Organization Address City/[facility]/ZIP Code Phon e Number [facility] LABORATORIES - [address] [address] [facility] (ABNORMAL) Bilirubin (03/19/2012 5:18 AM CDT) [facility] Method Time Signature Bilirubin, 18.1 (H) 0.1 - 1.0 [facility] Total, S MG/DL LABORATORIES - [facility] Bilirubin, 14.5 (H) 0.0 - 0.3 [facility] Direct, S MG/DL LABORATORIES - [facility] Specimen Anatomical Collection Method Collection Time Receive d Time (Source) Location / / Volume Laterality 03/19/2012 5:18 AM 2 5:18 CDT AM CDT Filiberto Antony M.D. LAB BLOOD ADD-ON Performing Organization Address City/[facility]/ZIP Code Phon e Number [facility] LABORATORIES - [address] [address] [facility] (ABNORMAL) Albumin (03/19/2012 5:18 AM CDT) P athologist Signature Albumin, S 2.9 (L) 3.5 - 5.0 [facility] G/DL LABORATORIES - [facility] Specimen Anatomical Collection Method Collection Time Receive d Time (Source) Location / / Volume Laterality 03/19/2012 5:18 AM 2 5:18 CDT AM CDT Filiberto Antony M.D. LAB BLOOD ADD-ON Performing Organization Address City/[facility]/ZIP Code Phon e Number [facility] LABORATORIES - [address] [address] [facility] (ABNORMAL) Electrolyte (Chem 4) Panel (03/19/2012 5:18 AM CDT) [facility] Method Time Signature Chloride, S 95 (L) 100 - 108 [facility] MMOL/L LABORATORIES - [facility] HX Bicarbonate, 19 (L) 22 - 29 [facility] P/S MMOL/L LABORATORIES - [facility] BUN (Blood Urea 28 (H) 8 - 24 [facility] Nitrogen), S MG/DL LABORATORIES [facility] Anion Gap 13 7 - 15 [facility] LABORATORIES - [facility] eGFR >60 >60 [facility] Non-Black/Afric ML/MIN/BS LABORATORIES - an [place] A [facility] eGFR-Black/Afri >60 >60 [facility] can [place] ML/MIN/BS LABORATORIES - A [facility] Sodium, S 127 (L) 135 - 145 [facility] MMOL/L LABORATORIES - [facility] Potassium, S 4.3 3.6 - 5.2 [facility] MMOL/L [facility] - [facility] Glucose, S 170 (H) 70 - 140 [facility] MG/DL LABORATORIES - [facility] Creatinine 0.9 0.8 - 1.3 [facility] MG/DL LABORATORIES - [facility] Specimen Anatomical Collection Method Collection Time Receive d Time (Source) Location / / Volume Laterality 03/19/2012 5:18 AM 2 5:18 CDT AM CDT Filiberto Antony M.D. LAB BLOOD ADD-ON Performing Organization Address City/State/[facility] Code Phon e Number [facility] LABORATORIES - [address] [address] [facility] Tacrolimus Level (03/19/2012 5:17 AM CDT) Analysis Performed At [facility] logist Time Signature Tacrolimus, B 8.9 5.0-15.0 [facility] (Trough) LABORATORIES - NG/ML [facility] Tacrolimus . [facility] Blood Date of LABORATORIES - Last Dose [facility] Comment: Not Specified Tacrolimus Time of Last Dose . [facility] LABORATORIES [facility] Comment: Not Specified Tacrolimus Blood Dose, mg . MG [facility] LABORATORIES - [facility] Comment: Not Specified Specimen Anatomical Collection Method Collection Time Receive d Time (Source) Location / / Volume Laterality 03/19/2012 5:17 AM 2 5:17 CDT AM CDT Filiberto Antony M.D. LAB BLOOD NON ADD-ON Performing Organization Address City/State/ZIP Code Phon e Number [facility] LABORATORIES - [address] [phone] [facility] Ketones, Qual, Urine (03/18/2012 11:14 PM CDT) [facility] Method Time Signature HX Ketones, Negative Negative [facility] Ql. MG/DL [facility] Specimen Anatomical Collection Method Collection Time Receive d Time (Source) Location / / Volume Laterality 03/18/2012 11:14 03/18/2012 PM CDT 11:14 PM CDT Filiberto Antony M.D. LAB URINE ORDERABLES Performing Organization Address City/[facility]/ZIP Code Phon e Number [facility] LABORATORIES - [address] [address] [facility] (ABNORMAL) Microscopic Manual (03/18/2012 11:14 PM CDT) [facility] Method Time Signature Microscopy Abnormal [facility] WBC 1-3 1-3 [facility] (Males); LABORATORIES - 1-10 [facility] (Females) [place] ; /HPF Casts, Hyaline Occas /LPF [facility] Granular Casts 1-3 (A) /LPF [facility] LABORATORIES [facility] Renal 1-3 (A) /HPF [facility] Epithelial LABORATORIES - Cells [facility] Crystals . [facility] Comment: Amorphous crystals present Specimen Anatomical Collection Method Collection Time Receive d Time (Source) Location / / Volume Laterality 03/18/2012 11:14 03/18/2012 PM CDT 11:14 PM CDT Filiberto Antony M.D. LAB URINE ORDERABLES Performing Organization Address City/[facility]/ZIP Code Phon e Number [facility] LABORATORIES - [address] [address] [facility] Gram Stain, Urine (03/18/2012 11:14 PM CDT) [facility] Method Time Signature Gram's Stain, Negative [facility] Screen, U LABORATORIES [facility] Specimen Anatomical Collection Method Collection Time Receive d Time (Source) Location / / Volume Laterality 03/18/2012 11:14 03/18/2012 PM CDT 11:14 PM CDT Filiberto Antony M.D. LAB URINE ORDERABLES Performing Organization Address City/State/ZIP Code Phon e Number [facility] LABORATORIES - [address] [place], [place] [address] [facility] (ABNORMAL) Urinalysis with Microscopic (03/18/2012 11:14 PM CDT) [facility] gist Method Time Signature Bilirubin Positive (A) Negative [facility] Osmolality, 504 150 - 1150 [facility] 24 HR, U MOSM/KG [facility] Glucose 644 (H) 0 - 15 [facility] MG/DL [facility] Protein, U 91 (H) 0 - 19 [facility] MG/DL [facility] Protein/Osmol 1.81 (H) <0.12 RATIO [facility] ality [facility] Predicted 24 1654 MG/24 H [facility] Hr Protein [facility] Predicted 525-5210 MG/24 H [facility] Range [facility] Source Midstream [facility] Appearance Bhakti Normal [facility] pH, 24 HR, U 5.5 4.5 - 8.0 [facility] Hemoglobin, Moderate (A) Negative [facility] QL [facility] Specimen Anatomical Collection Method Collection Time Receive d Time (Source) Location / / Volume Laterality 03/18/2012 11:14 03/18/2012 PM CDT 11:14 PM CDT Filiberto Antony M.D. LAB URINE ORDERABLES Performing Organization Address City/State/ZIP Code Phon e Number [facility] - [address] [phone] [facility] Microbiology Reports (03/18/2012 7:33 PM CDT) Specimen Anatomical Collection Method Collection Time Receive d Time (Source) Location / / Volume Laterality 03/18/2012 7:33 PM 2 7:33 CDT PM CDT Narrative [facility] [place] - 03/21/2012 8:20 AM CDT 18-MAR-2012 BLOOD, ? SoftOrd# [id number] ?(Specimen Collected 19:33; Received 18-MAR-2012 22:49) ?[facility] ?BACTERIA/RIMMA CULTURE, BLOOD ? (Reported 21-MAR-2012 08:20) FINAL ?ENTEROCOCCUS FAECALIS ??Grow th after 8 Hours ?3 of 3 Bottles, Susceptib ilities performed on another specimen [id number] Procedure Note 10/01/2017 18-MAR-2012 BLOOD, SoftOrd# [id number] (Specimen Collected 18-MAR-2012 19:33; Received 18-MAR-2012 22:49) [facility] BACTERIA/RIMMA CULTURE, BLOOD (Repor onel 21-MAR-2012 08:20) FINAL ENTEROCOCCUS FAECALIS Growth after 8 Ho urs 3 of 3 Bottles, Susceptibilities perfor med on another specimen [id number] Filiberto Antony M.D. LAB MICROBIOLOGY - GENERAL O RDERABLES Performing Organization Address City/State/ZIP Code Phon e Number [facility] - [address], [place] [address] [facility] Microbiology Reports (03/18/2012 7:32 PM CDT) Specimen Anatomical Collection Method Collection Time Receive d Time (Source) Location / / Volume Laterality 03/18/2012 7:32 PM 2 7:33 CDT PM CDT Narrative [facility] - [facility] - 03/21/2012 8:23 AM CDT 18-MAR-2012 BLOOD, ? SoftOrd# [id number] ?(Specimen Collected 19:32; Received 18-MAR-2012 22:48) ?[facility] ?BACTERIA/RIMMA CULTURE, BLOOD ? (Reported 21-MAR-2012 08:23) FINAL ?ENTEROCOCCUS FAECALIS ??Grow th after 8 Hours ?3 of 3 Bottles, Susceptib ilities performed on another specimen [id number] Procedure Note 10/01/2017 18-MAR-2012 BLOOD, SoftOrd# [id number] (Specimen Collected 18-MAR-2012 19:32; Received 18-MAR-2012 22:48) [facility] BACTERIA/RIMMA CULTURE, BLOOD (Repor onel 21-MAR-2012 08:23) FINAL ENTEROCOCCUS FAECALIS Growth after 8 Ho urs 3 of 3 Bottles, Susceptibilities perfor med on another specimen [id number] Filiberto Antony M.D. LAB MICROBIOLOGY - GENERAL O RDERABLES Performing Organization Address City/State/ZIP Code Phon e Number [facility] LABORATORIES - [address] [place], [place] [address] [facility] HX Bacterial Enteric Pathogens Pcr-Id (03/18/2012 12:12 PM CDT) athologist Signature Specimen stool [facility] Source LABORATORIES - (Bacterial [facility] enteric path) [place] Bacterial . [facility] enteric LABORATORIES - pathogens PCR [facility] Comment: Negative for Campylobacter jejuni, Campy [facility] [address] [place], [place] [address] [facility] (ABNORMAL) C. difficile Toxin PCR, F (03/18/2012 12:12 PM CDT) [facility] gist Method Time Signature Specimen stool [facility] Source LABORATORIES - (C.difficile [facility] Toxin PCR) [place] C. difficile Positive Not [facility] toxin (A) Applicable LABORATORIES - [facility] Comment: Patient Requires Modified Contact Precau tions ? if Hospitalized. ? Laboratory developed test. ? Specimen Anatomical Collection Method Collection Time Receive d Time (Source) Location / / Volume Laterality 03/18/2012 12:12 03/18/2012 PM CDT 12:12 PM CDT Leonid Gonzalez M.D. LAB MICROBIOLOGY - GENERAL O RDERABLES Performing Organization Address City/[facility] Phon e Number [facility] LABORATORIES - [address] [address] [facility] Tacrolimus Level (03/18/2012 7:59 AM CDT) Analysis Performed At Patho logist Time Signature Tacrolimus, B 7.4 5.0-15.0 [facility] (Trough) LABORATORIES - NG/ML [facility] Tacrolimus . [facility] Blood Date of LABORATORIES - Last Dose [facility] Comment: Not Specified Tacrolimus Time of Last Dose . [facility] LABORATORIES - [facility] Comment: Not Specified Tacrolimus Blood Dose, mg . MG [facility] LABORATORIES - [facility] Comment: Not Specified Specimen Anatomical Collection Method Collection Time Receive d Time (Source) Location / / Volume Laterality 03/18/2012 7:59 AM 2 7:59 CDT AM CDT Leonid Gonzalez M.D. LAB BLOOD NON ADD-ON Performing Organization Address City/[facility] Phon e Number [facility] LABORATORIES - [address] [address] [facility] documented in this encounter Visit Diagnoses Not on filedocumented in this encounter
--- OUTSIDE RECORDS SUMMARY | 2022-05-17 19:15 | XMS_ITS | Encounter Summary ---
:1955 Author Organization [facility] Address [address] [place] [address] Care Team Providers Name Role Phone Unavailable Primary Care Provider Unavailable Encounter Details Date Type Department Care Team Description 12/10/2011 Hospital Encounter HX NO MAPPING Roshan Grace M.S .N., R.N., C.C.T.C. 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 [address] [place] [phone] 05/23/2022 Clinical Admitting/Central Communication Scheduling 05/27/2022 Comprehensive Visit Orthopedic Surgery Markus Sams M.D., Ph.D. [address] [place] [phone] 05/29/2022 Office Visit Otorhinolaryngology Dex Matta APRN, C.N.P., M.S.N. [address] [place] [phone] 05/29/2022 Office Visit Otorhinolaryngology Nadeem Maradiaga, P.Murtaza.-Arley., M.S. [address] [place] [phone] 05/31/2022 Appointment Radiology Guilherme Matt MPAS, P.Murtaza.Marie., M.S. [address] [place] [phone] 06/05/2022 Appointment Laboratory Medicine Angélica Granger P.A.-C. [address] [place] [phone] 06/19/2022 Appointment Laboratory Medicine Angélica Granger P.A.-C. [address] [place] [phone] 07/03/2022 Appointment Laboratory Medicine Angélica Granger P.A.-C. [address] [place] [phone] 07/17/2022 Appointment Laboratory Medicine Angélica Granger P.A.-C. [address] [place] [phone] 07/31/2022 Appointment Laboratory Medicine Angélica Granger P.A.-C. [address] [place] [phone] 08/14/2022 Appointment Laboratory Medicine Angélica Granger P.A.-C. [address] [place] [phone] 08/28/2022 Appointment Laboratory Medicine Angélica Granger P.A.-C. [address] [place] [phone] documented as of this encounter Visit Diagnoses Not on filedocumented in this encounter
--- OUTSIDE RECORDS SUMMARY | 2022-05-17 19:16 | XMS_ITS | Encounter Summary ---
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 [address] [place] [phone] 05/23/2022 Clinical Admitting/Central Communication Scheduling 05/27/2022 Comprehensive Visit Orthopedic Surgery Markus Sams M.D., Ph.D. [address] [place] [phone] 05/29/2022 Office Visit Otorhinolaryngology Dex Matta APRN, C.N.P., M.S.N. [address] [place] [phone] 05/29/2022 Office Visit Otorhinolaryngology Nadeem Maradiaga, PMaryanne., M.S. [address] [place] [phone] 05/31/2022 Appointment Radiology Guilherme Matt, RASTA, PMaryanne., M.S. [address] [place] [phone] 06/05/2022 Appointment Laboratory Medicine Angélica Granger P.A.-C. [address] [place] [phone] 06/19/2022 Appointment Laboratory Medicine Angélica Granger P.A.-C. [address] [place] [phone] 07/03/2022 Appointment Laboratory Medicine Angélica Granger P.A.-C. [address] [place] [phone] 07/17/2022 Appointment Laboratory Medicine Angélica Granger P.A.-C. [address] [place] [phone] 07/31/2022 Appointment Laboratory Medicine Angélica Granger P.A.-C. [address] [place] [address] [phone] 08/14/2022 Appointment Laboratory Medicine Angélica Granger P.A.-C. [address] [place] [address] [phone] 08/28/2022 Appointment Laboratory Medicine Angélica Granger P.A.-C. [address] [place] [phone] documented as of this encounter Visit Diagnoses Not on filedocumented in this encounter
--- OUTSIDE RECORDS SUMMARY | 2022-05-17 19:16 | XMS_ITS | Encounter Summary ---
:1955 Author Organization [facility] Address [address] [place] [address] Care Team Providers Name Role Phone Unavailable Primary Care Provider Unavailable Encounter Details Date Type Department Care Team Description 11/06/2011 - Hospital Encounter HX RST INFUSION Afshan Matute 11/13/2011 THERAPY M, R.N. 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 [address] [place] [phone] 05/23/2022 Clinical Admitting/Central Communication Scheduling 05/27/2022 Comprehensive Visit Orthopedic Surgery Markus Sams M.D., Ph.D. [address] [place] [phone] 05/29/2022 Office Visit Otorhinolaryngology Dex Matta APRN, C.N.P., M.S.N. [address] [place] [phone] 05/29/2022 Office Visit Otorhinolaryngology Nadeem Maradiaga, P.A.-C., M.S. [address] [place] [address] [phone] 05/31/2022 Appointment Radiology Guilherme Matt MPAS, P.Murtaza.-Arley., M.S. [address] [place] [phone] 06/05/2022 Appointment Laboratory Medicine Angélica Granger P.A.-C. [address] [place] [phone] 06/19/2022 Appointment Laboratory Medicine Angélica Granger P.A.-C. [address] [place] [phone] 07/03/2022 Appointment Laboratory Medicine Angélica Granger P.A.-C. [address] [place] [phone] 07/17/2022 Appointment Laboratory Medicine Angélica Granger P.A.-C. [address] [place] [phone] 07/31/2022 Appointment Laboratory Medicine Angélica Granger P.A.-C. [address] [place] [phone] 08/14/2022 Appointment Laboratory Medicine Angélica Granger P.A.-C. [address] [place] [address] [phone] 08/28/2022 Appointment Laboratory Medicine Angélica Granger P.A.-C. [address] [place] [phone] documented as of this encounter Visit Diagnoses Not on filedocumented in this encounter
--- OUTSIDE RECORDS SUMMARY | 2022-05-17 19:16 | XMS_ITS | Encounter Summary ---
:1955 Author Organization [facility] Address [address] [place] [address] Care Team Providers Name Role Phone Unavailable Primary Care Provider Unavailable Encounter Details Date Type Department Care Team Description 11/06/2011 - Hospital Encounter HX RST INFUSION GianlucaureLaverne 11/13/2011 THERAPY J, R.N. 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 [address] [place] [phone] 05/23/2022 Clinical Admitting/Central Communication Scheduling 05/27/2022 Comprehensive Visit Orthopedic Surgery Markus Sams M.D., Ph.D. [address] [place] [address] [phone] 05/29/2022 Office Visit Otorhinolaryngology Dex Matta APRN, C.N.P., M.S.N. [address] [place] [address] [phone] 05/29/2022 Office Visit Otorhinolaryngology Nadeem Maradiaga, P.Murtaza.-Arley., M.S. [address] [place] [address] [phone] 05/31/2022 Appointment Radiology Guilherme Matt MPAS, P.Murtaza.Marie., M.S. [address] [place] [phone] 06/05/2022 Appointment Laboratory Medicine Angélica Granger P.A.-C. [address] [place] [address] [phone] 06/19/2022 Appointment Laboratory Medicine Angélica Granger P.A.-C. [address] [place] [phone] 07/03/2022 Appointment Laboratory Medicine Angélica Granger P.A.-C. [address] [place] [phone] 07/17/2022 Appointment Laboratory Medicine Angélica Granger P.A.-C. [address] [place] [phone] 07/31/2022 Appointment Laboratory Medicine Angélica Granger P.A.-C. [address] [place] [phone] 08/14/2022 Appointment Laboratory Medicine Angélica Granger P.A.-C. [address] [place] [address] [phone] 08/28/2022 Appointment Laboratory Medicine Angélica Granger P.A.-C. [address] [place] [phone] documented as of this encounter Visit Diagnoses Not on filedocumented in this encounter
--- OUTSIDE RECORDS SUMMARY | 2022-05-17 19:16 | XMS_ITS | Encounter Summary ---
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 [address] [place] [phone] 05/23/2022 Clinical Admitting/Central Communication Scheduling 05/27/2022 Comprehensive Visit Orthopedic Surgery Markus Sams M.D., Ph.D. [address] [place] [phone] 05/29/2022 Office Visit Otorhinolaryngology Dex Matta APRN, C.N.P., M.S.N. [address] [place] [phone] 05/29/2022 Office Visit Otorhinolaryngology Nadeem Maradiaga, PMaryanne., M.S. [address] [place] [phone] 05/31/2022 Appointment Radiology Guilherme Matt, RASTA, PMaryanne., M.S. [address] [place] [phone] 06/05/2022 Appointment Laboratory Medicine Angélica Granger P.A.-C. [address] [place] [phone] 06/19/2022 Appointment Laboratory Medicine Angélica Granger P.A.-C. [address] [place] [phone] 07/03/2022 Appointment Laboratory Medicine Angélica Granger P.A.-C. [address] [place] [phone] 07/17/2022 Appointment Laboratory Medicine Angélica Granger P.A.-C. [address] [place] [phone] 07/31/2022 Appointment Laboratory Medicine Angélica Granger P.A.-C. [address] [place] [address] [phone] 08/14/2022 Appointment Laboratory Medicine Angélica Granger P.A.-C. [address] [place] [address] [phone] 08/28/2022 Appointment Laboratory Medicine Angélica Granger P.A.-C. [address] [place] [address] [phone] documented as of this encounter Visit Diagnoses Not on filedocumented in this encounter
--- OUTSIDE RECORDS SUMMARY | 2022-05-17 19:16 | XMS_ITS | Encounter Summary ---
:1955 Author Organization [facility] Address [address] [place] [address] Care Team Providers Name Role Phone Unavailable Primary Care Provider Unavailable Encounter Details Date Type Department Care Team Description 10/18/2011 - Hospital Encounter HX RST INFUSION GianlucaureLaverne 10/25/2011 THERAPY J, R.N. 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 [address] [place] [phone] 05/23/2022 Clinical Admitting/Central Communication Scheduling 05/27/2022 Comprehensive Visit Orthopedic Surgery Markus Sams M.D., Ph.D. [address] [place] [address] [phone] 05/29/2022 Office Visit Otorhinolaryngology Dex Matta APRN, C.N.P., M.S.N. [address] [place] [address] [phone] 05/29/2022 Office Visit Otorhinolaryngology Nadeem Maradiaga, P.Murtaza.-Arley., M.S. [address] [place] [address] [phone] 05/31/2022 Appointment Radiology Guilherme Matt MPAS, P.Murtaza.Marie., M.S. [address] [place] [phone] 06/05/2022 Appointment Laboratory Medicine Angélica Granger P.A.-C. [address] [place] [address] [phone] 06/19/2022 Appointment Laboratory Medicine Angélica Granger P.A.-C. [address] [place] [phone] 07/03/2022 Appointment Laboratory Medicine Angélica Granger P.A.-C. [address] [place] [phone] 07/17/2022 Appointment Laboratory Medicine Angélica Granger P.A.-C. [address] [place] [phone] 07/31/2022 Appointment Laboratory Medicine Angélica Granger P.A.-C. [address] [place] [phone] 08/14/2022 Appointment Laboratory Medicine Angélica Granger P.A.-C. [address] [place] [address] [phone] 08/28/2022 Appointment Laboratory Medicine Angélica Granger P.A.-C. [address] [place] [phone] documented as of this encounter Visit Diagnoses Not on filedocumented in this encounter
--- OUTSIDE RECORDS SUMMARY | 2022-05-17 19:16 | XMS_ITS | Encounter Summary ---
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 [address] [place] [address] [phone] 05/23/2022 Clinical Admitting/Central Communication Scheduling 05/27/2022 Comprehensive Visit Orthopedic Surgery Markus Sams M.D., Ph.D. [address] [place] [phone] 05/29/2022 Office Visit Otorhinolaryngology Dex Matta APRN, C.N.P., M.S.N. [address] [place] [address] [phone] 05/29/2022 Office Visit Otorhinolaryngology Nadeem Maradiaga, P.A.-C., M.S. [address] [place] [phone] 05/31/2022 Appointment Radiology Guilherme Matt MPAS PEdgar.Marie., M.S. [address] [place] [address] [phone] 06/05/2022 Appointment Laboratory Medicine Angélica Granger P.A.-C. [address] [place] [phone] 06/19/2022 Appointment Laboratory Medicine Angélica Granger P.A.-C. [address] [place] [phone] 07/03/2022 Appointment Laboratory Medicine Angélica Granger P.A.-C. [address] [place] [phone] 07/17/2022 Appointment Laboratory Medicine Angélica Granger P.A.-C. [address] [place] [phone] 07/31/2022 Appointment Laboratory Medicine Angélica Granger P.A.-C. [address] [place] [address] [phone] 08/14/2022 Appointment Laboratory Medicine Angélica Granger P.A.-C. [address] [place] [phone] 08/28/2022 Appointment Laboratory Medicine Angélica Granger P.A.-C. [address] [place] [phone] documented as of this encounter Procedures Procedure [...] Electronically signed by: ?? Jaxson Lion MD [id number] 11:40 Procedure Note Jaxson Lion M.D. - 09/20/2017Fo rmatting of this note might be different from the original. 03-Oct-2011 11:34:00 Exam: Chest-PICC Indications: picc placement ORIGINAL REPORT - 03-Oct-2011 11:40:00 Chest; 1 view: Right PICC line with tip in the lower SV C. Electronically signed by: Jaxson Lion MD [id number] 2 11:40 Anatoliy [facility] PROCE IKE (ABNORMAL) CBC with Differential (10/03/2011 5:10 AM CDT) [facility] gist Method Time Signature Erythrocytes 3.64 (L) 4.32 - [facility] 5.72 LABORATORIES - X10(12)/L [facility] MCV 88.2 81.2 - [facility] 95.1 FL [facility] RBC Distrib 12.5 11.8 - [facility] Width 15.6 % [facility] Platelet Count 403 150 - 450 [facility] X10(9)/L [facility] Leukocytes 14.0 (H) 3.5 - [facility] 10.5 LABORATORIES - X10(9)/L [facility] Neutrophils 7.42 (H) 1.70 - [facility] 7.00 LABORATORIES - X10(9)/L [facility] Comment: Rechecked Hemoglobin 10.4 (L) 13.5 - 17.5 G/DL [facility] Hematocrit 32.1 (L) 38.8 - 50.0 % [facility] LAB ORATORIES [facility] Lymphocytes 5.05 (H) 0.90 - 2.90 X10(9)/L [facility] Monocytes 0.96 (H) 0.30 - 0.90 X10(9)/L [facility] Eosinophils 0.50 0.05 - 0.50 X10(9)/L [facility] Basophils 0.06 0.00 - 0.30 X10(9)/L [facility] IC LABORATORIES - [facility] Specimen Anatomical Collection Method Collection Time Receive d Time (Source) Location / / Volume Laterality 10/03/2011 5:10 AM 2 5:10 CDT AM CDT Krystle Whitney R.N. LAB BLOOD ADD-ON Performing Organization Address City/[facility]/ZIP Code Phon e Number [facility] LABORATORIES - [address] [place], [place] [address] [facility] (ABNORMAL) Electrolyte (Chem 4) Panel (10/03/2011 5:10 AM CDT) Patholo gist Method Time Signature Sodium, S 136 135 - 145 [facility] MMOL/L LABORATORIES - [facility] Potassium, S 4.5 3.6 - 5.2 [facility] MMOL/L LABORATORIES - [facility] eGFR-Black/Afri >60 >60 [facility] can Bhutanese ML/MIN/BSA LABORATORIES - [facility] BUN (Blood Urea 30 (H) 8 - 24 [facility] Nitrogen), S MG/DL LABORATORIES - [facility] Chloride, S 102 100 - 108 [facility] MMOL/L LABORATORIES - [facility] HX Bicarbonate, 22 22 - 29 [facility] P/S MMOL/L LABORATORIES - [facility] Creatinine 1.2 0.8 - 1.3 [facility] MG/DL LABORATORIES - [facility] eGFR >60 >60 [facility] Non-Black/Afric ML/MIN/BSA LABORATORIES - an Bhutanese [facility] Anion Gap 12 7 - 15 [facility] LABORATORIES - [facility] Glucose, S 109 70 - 140 [facility] MG/DL LABORATORIES - [facility] Specimen Anatomical Collection Method Collection Time Receive d Time (Source) Location / / Volume Laterality 10/03/2011 5:10 AM 2 5:10 CDT AM CDT Krystle Whitney R.N. LAB BLOOD ADD-ON Performing Organization Address City/State/ZIP Code Phon e Number [facility] LABORATORIES - [address] [place], [place] [address] [facility] Tacrolimus Level (10/03/2011 5:10 AM CDT) Analysis Performed At Patho logist Time Signature Tacrolimus, B 5.1 5.0-15.0 [facility] (Trough) LABORATORIES - NG/ML [facility] Tacrolimus . [facility] Blood Date of LABORATORIES - Last Dose [facility] Comment: Not Specified Tacrolimus Time of Last Dose . M [facility] Comment: Not Specified Tacrolimus Blood Dose, mg . [facility] Comment: Not Specified Specimen Anatomical Collection Method Collection Time Receive d Time (Source) Location / / Volume Laterality 10/03/2011 5:10 AM 2 5:10 CDT AM CDT Krystle Whitney R.N. LAB BLOOD NON ADD-ON Performing Organization Address City/[facility] Code Phon e Number [facility] - [address] [place] [phone] [facility] (ABNORMAL) Albumin (10/02/2011 5:18 AM CDT) P athologist Signature Albumin, S 3.2 (L) 3.5 - 5.0 [facility] G/DL [facility] Specimen Anatomical Collection Method Collection Time Receive d Time (Source) Location / / Volume Laterality 10/02/2011 5:18 AM 2 5:18 CDT AM CDT Van Barron M.D. LAB BLOOD ADD-ON Performing Organization Address City/State/ZIP Code Phon e Number [facility] - [address] [phone] 05 [facility] (ABNORMAL) Alkaline Phosphatase (10/02/2011 5:18 AM CDT) Patholo gist Method Time Signature Alkaline 310 (H) 45 - 115 [facility] Phosphatase, S U/L [facility] Specimen Anatomical Collection Method Collection Time Receive d Time (Source) Location / / Volume Laterality 10/02/2011 5:18 AM 2 5:18 CDT AM CDT Van Barron M.D. LAB BLOOD ADD-ON Performing Organization Address City/[facility] Code Phon e Number [facility] - [address] [phone] 05 [facility] AST (Aspartate Aminotransferase) (10/02/2011 5:18 AM CDT) P athologist Signature AST, Total, S 22 8 - 48 U/L [facility] Specimen Anatomical Collection Method Collection Time Receive d Time (Source) Location / / Volume Laterality 10/02/2011 5:18 AM 2 5:18 CDT AM CDT Van Barron M.D. LAB BLOOD ADD-ON Performing Organization Address City/State/ZIP Code Phon e Number [facility] LABORATORIES - [address] [phone] [facility] Calcium, Total (10/02/2011 5:18 AM CDT) P athologist Signature Calcium, 9.1 8.9 - 10.1 [facility] Total, S MG/DL LABORATORIES - [facility] Specimen Anatomical Collection Method Collection Time Receive d Time (Source) Location / / Volume Laterality 10/02/2011 5:18 AM 2 5:18 CDT AM CDT Van Barron M.D. LAB BLOOD ADD-ON Performing Organization Address City/[facility]/ZIP Code Phon e Number [facility] LABORATORIES - [address] [place], [place] [address] [facility] PT (Prothrombin Time) with INR (10/02/2011 5:18 AM CDT) Patholo gist Method Time Signature Prothrombin 11.7 9.5 - 13.8 [facility] Time, P SEC LABORATORIES - [facility] INR 0.9 0.8 - 1.2 [facility] Specimen Anatomical Collection Method Collection Time Receive d Time (Source) Location / / Volume Laterality 10/02/2011 5:18 AM 2 5:18 CDT AM CDT Van Barron M.D. LAB BLOOD ADD-ON Performing Organization Address City/State/ZIP Code Phon e Number [facility] LAB[facility]ATORIES - [address] [phone] [facility] Bilirubin (10/02/2011 5:18 AM CDT) P athologist Signature Bilirubin, 0.3 0.1 - 1.0 [facility] Total, S MG/DL LABORATORIES [facility] Bilirubin, 0.2 0.0 - 0.3 [facility] Direct, S MG/DL LABORATORIES - [facility] Specimen Anatomical Collection Method Collection Time Receive d Time (Source) Location / / Volume Laterality 10/02/2011 5:18 AM 2 5:18 CDT AM CDT Van Barron M.D. LAB BLOOD ADD-ON Performing Organization Address City/State/ZIP Code Phon e Number [facility] LAB[facility]ATORIES - [address] [phone] [facility] Magnesium (10/02/2011 5:18 AM CDT) P athologist Signature Magnesium, S 2.0 1.7 - 2.3 [facility] MG/DL LABORATORIES - [facility] Specimen Anatomical Collection Method Collection Time Receive d Time (Source) Location / / Volume Laterality 10/02/2011 5:18 AM 2 5:18 CDT AM CDT Van Barron M.D. LAB BLOOD ADD-ON Performing Organization Address City/[facility] Code Phon e Number [facility] LABORATORIES - [address] [phone] [facility] (ABNORMAL) CBC with Differential - No Alerts (10/02/2011 5:18 AM CDT) Patholo gist Method Time Signature Erythrocytes 3.35 (L) 4.32 - [facility] 5.72 LABORATORIES - X10(12)/L [facility] MCV 89.6 81.2 - [facility] 95.1 FL LABORATORIES - [facility] Leukocytes 9.4 3.5 - [facility] 10.5 LABORATORIES - X10(9)/L [facility] Neutrophils 4.64 1.70 - [facility] 7.00 LABORATORIES - X10(9)/L [facility] Lymphocytes 3.64 (H) 0.90 - [facility] 2.90 LABORATORIES - X10(9)/L [facility] Monocytes 0.73 0.30 - [facility] 0.90 LABORATORIES - X10(9)/L [facility] Hemoglobin 9.5 (L) 13.5 - [facility] 17.5 G/DL [facility] Hematocrit 30.0 (L) 38.8 - [facility] 50.0 % [facility] RBC Distrib 12.5 11.8 - [facility] Width 15.6 % [facility] Platelet Count 339 150 - 450 [facility] X10(9)/L LABORATORIES - [facility] Eosinophils 0.36 0.05 - [facility] 0.50 LABORATORIES - X10(9)/L [facility] Basophils 0.04 0.00 - [facility] 0.30 LABORATORIES - X10(9)/L [facility] Specimen Anatomical Collection Method Collection Time Receive d Time (Source) Location / / Volume Laterality 10/02/2011 5:18 AM 2 5:18 CDT AM CDT Van Barron M.D. LAB BLOOD NON ADD-ON Performing Organization Address City/[facility]/ZIP [facility] Phon e Number [facility] LAB[facility]ATORIES - [address] [phone] [facility] (ABNORMAL) ALT (Alanine Aminotransferase) (10/02/2011 5:18 AM CDT) [facility] Method Time Signature Alanine 67 (H) 7 - 55 [facility] Aminotransferase U/L LABORATORIES - (ALT), S [facility] Specimen Anatomical Collection Method Collection Time Receive d Time (Source) Location / / Volume Laterality 10/02/2011 5:18 AM 2 5:18 CDT AM CDT Van Barron M.D. LAB BLOOD ADD-ON Performing Organization Address City/[facility] Code Phon e Number [facility] LABORATORIES - [address] [phone] [facility] (ABNORMAL) Electrolyte (Chem 4) Panel (10/02/2011 5:18 AM CDT) [facility] Method Time Signature Chloride, S 104 100 - 108 [facility] MMOL/L LABORATORIES - [facility] HX Bicarbonate, 24 22 - 29 [facility] P/S MMOL/L LABORATORIES - [facility] eGFR-Black/Afri >60 >60 [facility] can Bhutanese ML/MIN/BSA LABORATORIES [facility] BUN (Blood Urea 25 (H) 8 - 24 [facility] Nitrogen), S MG/DL LABORATORIES - [facility] Sodium, S 138 135 - 145 [facility] MMOL/L LABORATORIES - [facility] Potassium, S 4.3 3.6 - 5.2 [facility] MMOL/L LABORATORIES [facility] Creatinine 1.2 0.8 - 1.3 [facility] MG/DL LABORATORIES - [facility] eGFR >60 >60 [facility] Non-Black/Afric ML/MIN/BSA LABORATORIES - an Bhutanese [facility] Anion Gap 10 7 - 15 [facility] Glucose, S 131 70 - 140 [facility] MG/DL LABORATORIES - [facility] Specimen Anatomical Collection Method Collection Time Receive d Time (Source) Location / / Volume Laterality 10/02/2011 5:18 AM 2 5:18 CDT AM CDT Van Barron M.D. LAB BLOOD ADD-ON Performing Organization Address City/State/ZIP Code Phon e Number [facility] - [address] [place], [place] [address] [facility] Microbiology Reports (10/01/2011 12:24 PM CDT) Specimen Anatomical Collection Method Collection Time Receive d Time (Source) Location / / Volume Laterality 10/01/2011 12:24 10/01/2011 PM CDT 12:24 PM CDT Narrative [facility] - [facility] - 10/06/2011 6:30 PM CDT 01-OCT-2011 BLOOD, ? SoftOrd# [id number] ?(Specimen Collected 12:24; Received 01-OCT-2011 13:46) ? Dept Lab Med Path ?BACTERIA/MARRY CULTURE, BLOOD ? (Reported 06-OCT-2011 18:30) FINAL ?No growth after 5 days of in cubation. Procedure Note 10/01/2017 01-OCT-2011 BLOOD, SoftOrd# [id number] (Specimen Collected 01-OCT-2011 12:24; Received 01-OCT-2011 13:46) Dept Lab Med Path BACTERIA/MARRY CULTURE, BLOOD (Repor onel 06-OCT-2011 18:30) FINAL No growth after 5 days of incubation. May Ballesteros P.A.-C. LAB MICROBIOLOGY - GENERAL O GLADYS Performing Organization Address City/State/[facility] Code Phon e Number [facility] - [address] [place], [place] [address] [facility] Microbiology Reports (10/01/2011 12:16 PM CDT) Specimen Anatomical Collection Method Collection Time Receive d Time (Source) Location / / Volume Laterality 10/01/2011 12:16 10/01/2011 PM CDT 12:16 PM CDT Narrative [facility] - [facility] - 10/06/2011 6:30 PM CDT 01-OCT-2011 BLOOD, ? SoftOrd# [id number] ?(Specimen Collected 12:16; Received 01-OCT-2011 13:45) ? Dept Lab Med Path ?BACTERIA/MARRY CULTURE, BLOOD ? (Reported 06-OCT-2011 18:30) FINAL ?No growth after 5 days of in cubation. Procedure Note 10/01/2017 01-OCT-2011 BLOOD, SoftOrd# [id number] (Specimen Collected 01-OCT-2011 12:16; Received 01-OCT-2011 13:45) Dept Lab Med Path BACTERIA/MARRY CULTURE, BLOOD (Repor onel 06-OCT-2011 18:30) FINAL No growth after 5 days of incubation. May Ballesteros P.A.-C. LAB MICROBIOLOGY - GENERAL O GLADYS Performing Organization Address City/State/ZIP Code Phon e Number [facility]ATORIES - [address] [phone] [facility] PT (Prothrombin Time) with INR (10/01/2011 5:18 AM CDT) [facility] Method Time Signature Prothrombin 12.9 9.5 - 13.8 [facility] Time, P SEC LABORATORIES - [facility] INR 1.1 0.8 - 1.2 [facility] - [facility] Specimen Anatomical Collection Method Collection Time Receive d Time (Source) Location / / Volume Laterality 10/01/2011 5:18 AM 2 5:18 CDT AM CDT Van Barron M.D. LAB BLOOD ADD-ON Performing Organization Address City/[facility]/ZIP Code Phon e Number [facility]IES - [address] [phone] [facility] AST (Aspartate Aminotransferase) (10/01/2011 5:18 AM CDT) P athologist Signature AST, Total, S 25 8 - 48 U/L [facility] Specimen Anatomical Collection Method Collection Time Receive d Time (Source) Location / / Volume Laterality 10/01/2011 5:18 AM 2 5:18 CDT AM CDT Van Barron M.D. LAB BLOOD ADD-ON Performing Organization Address City/State/ZIP Code Phon e Number [facility]IES - [address] [place], [place] [address] [facility] (ABNORMAL) ALT (Alanine Aminotransferase) (10/01/2011 5:18 AM CDT) [facility] Method Time Signature Alanine 77 (H) 7 - 55 [facility] Aminotransferase U/L LABORATORIES - (ALT), S [facility] Specimen Anatomical Collection Method Collection Time Receive d Time (Source) Location / / Volume Laterality 10/01/2011 5:18 AM 2 5:18 CDT AM CDT Van Barron M.D. LAB BLOOD ADD-ON Performing Organization Address City/[facility]/ZIP Code Phon e Number [facility]IES - [address] [phone] [facility] (ABNORMAL) Albumin (10/01/2011 5:18 AM CDT) P athologist Signature Albumin, S 3.1 (L) 3.5 - 5.0 [facility] G/DL LABORATORIES - [facility] Specimen Anatomical Collection Method Collection Time Receive d Time (Source) Location / / Volume Laterality 10/01/2011 5:18 AM 2 5:18 CDT AM CDT aVn Barron M.D. LAB BLOOD ADD-ON Performing Organization Address City/[facility] Phon e Number [facility]IES - [address] [place], [place] [address] [facility] Tacrolimus Level (10/01/2011 5:18 AM CDT) Analysis Performed At Patho logist Time Signature Tacrolimus, B 8.3 5.0-15.0 [facility] (Trough) LABORATORIES - NG/ML [facility] Tacrolimus . [facility] Blood Date of LABORATORIES - Last Dose [facility] Comment: Not Specified Tacrolimus Time of Last Dose . M [facility] LABORATORIES - [facility] Comment: Not Specified Tacrolimus Blood Dose, mg . [facility] LABORATORIES - [facility] Comment: Not Specified Specimen Anatomical Collection Method Collection Time Receive d Time (Source) Location / / Volume Laterality 10/01/2011 5:18 AM 2 5:18 CDT AM CDT Van Barron M.D. LAB BLOOD NON ADD-ON Performing Organization Address City/[facility] Phon e Number [facility]ATORIES - [address] [place], [place] [address] [facility] (ABNORMAL) Calcium, Total (10/01/2011 5:18 AM CDT) Patholo gist Method Time Signature Calcium, 8.8 (L) 8.9 - 10.1 [facility] Total, S MG/DL LABORATORIES - [facility] Specimen Anatomical Collection Method Collection Time Receive d Time (Source) Location / / Volume Laterality 10/01/2011 5:18 AM 2 5:18 CDT AM CDT Van Barron M.D. LAB BLOOD ADD-ON Performing Organization Address City/State/[facility] Code Phon e Number [facility]IES - [address] [place] [phone] [facility] (ABNORMAL) CBC with Differential - No Alerts (10/01/2011 5:18 AM CDT) [facility] Method Time Signature Hemoglobin 9.1 (L) 13.5 - [facility] 17.5 G/DL LABORATORIES - [facility] Hematocrit 28.2 (L) 38.8 - [facility] 50.0 % LABORATORIES - [facility] RBC Distrib 12.5 11.8 - [facility] Width 15.6 % LABORATORIES - [facility] Platelet Count 285 150 - 450 [facility] X10(9)/L LABORATORIES - [facility] Lymphocytes 2.78 0.90 - [facility] 2.90 LABORATORIES - X10(9)/L [facility] Monocytes 0.88 0.30 - [facility] 0.90 LABORATORIES - X10(9)/L [facility] Erythrocytes 3.15 (L) 4.32 - [facility] 5.72 LABORATORIES - X10(12)/L [facility] MCV 89.5 81.2 - [facility] 95.1 FL LABORATORIES - [facility] Leukocytes 8.4 3.5 - [facility] 10.5 LABORATORIES - X10(9)/L [facility] Neutrophils 4.48 1.70 - [facility] 7.00 LABORATORIES - X10(9)/L [facility] Eosinophils 0.27 0.05 - [facility] 0.50 LABORATORIES - X10(9)/L [facility] Basophils 0.02 0.00 - [facility] 0.30 LABORATORIES - X10(9)/L [facility] Specimen Anatomical Collection Method Collection Time Receive d Time (Source) Location / / Volume Laterality 10/01/2011 5:18 AM 2 5:18 CDT AM CDT Van Barron M.D. LAB BLOOD NON ADD-ON Performing Organization Address City/State/[facility] Code Phon e Number [facility]IES - [address] [phone] [facility] (ABNORMAL) Electrolyte (Chem 4) Panel (10/01/2011 5:18 AM CDT) [facility] Method Time Signature Sodium, S 135 135 - 145 [facility] MMOL/L LABORATORIES - [facility] Potassium, S 4.2 3.6 - 5.2 [facility] MMOL/L LABORATORIES - [facility] Chloride, S 101 100 - 108 [facility] MMOL/L LABORATORIES - [facility] HX Bicarbonate, 24 22 - 29 [facility] P/S MMOL/L LABORATORIES - [facility] Creatinine 1.3 0.8 - 1.3 [facility] MG/DL LABORATORIES - [facility] eGFR 57 (L) >60 [facility] Non-Black/Afric ML/MIN/BS LABORATORIES - an [place] A [facility] eGFR-Black/Afri >60 >60 [facility] can [place] ML/MIN/BS LABORATORIES - A [facility] BUN (Blood Urea 21 8 - 24 [facility] Nitrogen), S MG/DL LAB[facility]ATORIES - [facility] Anion Gap 10 7 - 15 [facility]ATORIES - [facility] Glucose, S 172 (H) 70 - 140 [facility] MG/DL LABORATORIES - [facility] Specimen Anatomical Collection Method Collection Time Receive d Time (Source) Location / / Volume Laterality 10/01/2011 5:18 AM 2 5:18 CDT AM CDT Van Barron M.D. LAB BLOOD ADD-ON Performing Organization Address City/State/[facility] Code Phon e Number [facility] LABORATORIES - [address] [phone] [facility] Magnesium (10/01/2011 5:18 AM CDT) P athologist Signature Magnesium, S 2.0 1.7 - 2.3 [facility] MG/DL [facility] - [facility] Specimen Anatomical Collection Method Collection Time Receive d Time (Source) Location / / Volume Laterality 10/01/2011 5:18 AM 2 5:18 CDT AM CDT Van Barron M.D. LAB BLOOD ADD-ON Performing Organization Address City/State/[facility] Code Phon e Number [facility]IES - [address] [phone] [facility] Bilirubin (10/01/2011 5:18 AM CDT) P athologist Signature Bilirubin, 0.3 0.1 - 1.0 [facility] Total, S MG/DL LABORATORIES - [facility] Bilirubin, 0.2 0.0 - 0.3 [facility] Direct, S MG/DL LABORATORIES [facility] Specimen Anatomical Collection Method Collection Time Receive d Time (Source) Location / / Volume Laterality 10/01/2011 5:18 AM 2 5:18 CDT AM CDT Van Barron M.D. LAB BLOOD ADD-ON Performing Organization Address City/[facility]/ZIP [facility] Phon e Number [facility] LAB[facility]ATORIES - [address] (ABNORMAL) Alkaline Phosphatase (10/01/2011 5:18 AM CDT) Patholo gist Method Time Signature Alkaline 330 (H) 45 - 115 [facility] Phosphatase, S U/L LABORATORIES [facility] Specimen Anatomical Collection Method Collection Time Receive d Time (Source) Location / / Volume Laterality 10/01/2011 5:18 AM 2 5:18 CDT AM CDT Van Barron M.D. LAB BLOOD ADD-ON Performing Organization Address City/[facility] Code Phon e Number [facility]IES - [address] [phone] [facility] V&IRAD Vascular & Intervention (09/30/2011 9:55 AM [...] Electronically signed by: ?? Melvin Merlos MD [phone] 30-Sep-2011 1 0:03 Procedure Note Melvin Merlos [...] cussed. Electronically signed by: Melvin Merlos MD [phone] 30-Sep-2011 1 0:03 Anatoliy Bernardo M.D. IMG IR PROCEDURES (ABNORMAL) Alkaline Phosphatase (09/30/2011 5:14 AM CDT) [facility] Method Time Signature Alkaline 383 (H) 45 - 115 [facility] Phosphatase, S U/L [facility] Specimen Anatomical Collection Method Collection Time Receive d Time (Source) Location / / Volume Laterality 09/30/2011 5:14 AM 2 5:14 CDT AM CDT Van Barron M.D. LAB BLOOD ADD-ON Performing Organization Address City/[facility]/ZIP Code Phon e Number [facility] [address] [phone] [facility] PT (Prothrombin Time) with INR (09/30/2011 5:14 AM CDT) [facility] Method Time Signature Prothrombin 13.4 9.5 - 13.8 [facility] Time, P SEC LABORATORIES [facility] INR 1.1 0.8 - 1.2 [facility] Specimen Anatomical Collection Method Collection Time Receive d Time (Source) Location / / Volume Laterality 09/30/2011 5:14 AM 2 5:14 CDT AM CDT Van Barron M.D. LAB BLOOD ADD-ON Performing Organization Address City/[facility]/ZIP Code Phon e Number [facility] - [address] [phone] [facility] AST (Aspartate Aminotransferase) (09/30/2011 5:14 AM CDT) P athologist Signature AST, Total, S 36 8 - 48 U/L [facility] Specimen Anatomical Collection Method Collection Time Receive d Time (Source) Location / / Volume Laterality 09/30/2011 5:14 AM 2 5:14 CDT AM CDT Van Barron M.D. LAB BLOOD ADD-ON Performing Organization Address City/[facility]/ZIP Code Phon e Number [facility] - [address] [phone] [facility] Tacrolimus Level (09/30/2011 5:14 AM CDT) Analysis Performed At [facility] logist Time Signature Tacrolimus, B 9.7 5.0-15.0 [facility] (Trough) LABORATORIES - NG/ML [facility] Tacrolimus . [facility] Blood Date of LABORATORIES - Last Dose [facility] Comment: Not Specified Tacrolimus Time of Last Dose . M [facility] LAB[facility]ATORIES - [facility] Comment: Not Specified Tacrolimus Blood Dose, mg . [facility]ATORIES - [facility] Comment: Not Specified Specimen Anatomical Collection Method Collection Time Receive d Time (Source) Location / / Volume Laterality 09/30/2011 5:14 AM 2 5:14 CDT AM CDT Van Barron M.D. LAB BLOOD NON ADD-ON Performing Organization Address City/State/ZIP Code Phon e Number [facility] LAB[facility]ATORIES - [address] [place], [place] [address] [facility] (ABNORMAL) CBC with Differential - No Alerts (09/30/2011 5:14 AM CDT) [facility] gist Method Time Signature Erythrocytes 3.03 (L) 4.32 - [facility] 5.72 LABORATORIES - X10(12)/L [facility] MCV 89.4 81.2 - [facility] 95.1 [place] LABORATORIES - [facility] Lymphocytes 1.65 0.90 - [facility] 2.90 LABORATORIES - X10(9)/L [facility] Monocytes 1.27 (H) 0.30 - [facility] 0.90 LABORATORIES - X10(9)/L [facility] Hemoglobin 8.8 (L) 13.5 - [facility] 17.5 G/DL LABORATORIES - [facility] Hematocrit 27.1 (L) 38.8 - [facility] 50.0 % LABORATORIES - [facility] RBC Distrib 12.6 11.8 - [facility] Width 15.6 % LABORATORIES - [facility] Platelet Count 204 150 - 450 [facility] X10(9)/L LABORATORIES - [facility] Leukocytes 9.0 3.5 - [facility] 10.5 LABORATORIES - X10(9)/L [facility] Neutrophils 5.90 1.70 - [facility] 7.00 LABORATORIES - X10(9)/L [facility] Eosinophils 0.17 0.05 - [facility] 0.50 LABORATORIES - X10(9)/L [facility] Basophils 0.02 0.00 - [facility] 0.30 LABORATORIES - X10(9)/L [facility] Specimen Anatomical Collection Method Collection Time Receive d Time (Source) Location / / Volume Laterality 09/30/2011 5:14 AM 2 5:14 CDT AM CDT Van Barron M.D. LAB BLOOD NON ADD-ON Performing Organization Address City/[facility] Phon e Number [facility]IES - [address] [phone] [facility] (ABNORMAL) Albumin (09/30/2011 5:14 AM CDT) P athologist Signature Albumin, S 2.9 (L) 3.5 - 5.0 [facility] G/DL [facility] Specimen Anatomical Collection Method Collection Time Receive d Time (Source) Location / / Volume Laterality 09/30/2011 5:14 AM 2 5:14 CDT AM CDT Van Barron M.D. LAB BLOOD ADD-ON Performing Organization Address City/[facility] Phon e Number [facility]IES - [address] [phone] [facility] Magnesium (09/30/2011 5:14 AM CDT) P athologist Signature Magnesium, S 2.0 1.7 - 2.3 [facility] MG/DL [facility] Specimen Anatomical Collection Method Collection Time Receive d Time (Source) Location / / Volume Laterality 09/30/2011 5:14 AM 2 5:14 CDT AM CDT Van Barron M.D. LAB BLOOD ADD-ON Performing Organization Address City/[facility] Phon e Number [facility]IES - [address] [phone] [facility] (ABNORMAL) Electrolyte (Chem 4) Panel (09/30/2011 5:14 AM CDT) Patholo gist Method Time Signature Sodium, S 132 (L) 135 - 145 [facility] MMOL/L [facility] Potassium, S 4.5 3.6 - 5.2 [facility] MMOL/L [facility] Chloride, S 99 (L) 100 - 108 [facility] MMOL/L LABORATORIES - [facility] HX Bicarbonate, 24 22 - 29 [facility] P/S MMOL/L LABORATORIES - [facility] Creatinine 1.4 (H) 0.8 - 1.3 [facility] MG/DL LABORATORIES - [facility] eGFR 52 (L) >60 [facility] Non-Black/Afric ML/MIN/BS LABORATORIES - an [place] A [facility] eGFR-Black/Afri >60 >60 [facility] can [place] ML/MIN/BS LABORATORIES - A [facility] BUN (Blood Urea 24 8 - 24 [facility] Nitrogen), S MG/DL LABORATORIES - [facility] Anion Gap 9 7 - 15 [facility]IES - [facility] Glucose, S 241 (H) 70 - 140 [facility] MG/DL LABORATORIES - [facility] Specimen Anatomical Collection Method Collection Time Receive d Time (Source) Location / / Volume Laterality 09/30/2011 5:14 AM 2 5:14 CDT AM CDT Van Barron M.D. LAB BLOOD ADD-ON Performing Organization Address City/State/ZIP Code Phon e Number [facility]IES - [address] [phone] [facility] (ABNORMAL) ALT (Alanine Aminotransferase) (09/30/2011 5:14 AM CDT) [facility] Method Time Signature Alanine 96 (H) 7 - 55 [facility] Aminotransferase U/L LABORATORIES - (ALT), S [facility] Specimen Anatomical Collection Method Collection Time Receive d Time (Source) Location / / Volume Laterality 09/30/2011 5:14 AM 2 5:14 CDT AM CDT Van Barron M.D. LAB BLOOD ADD-ON Performing Organization Address City/State/[facility] Code Phon e Number [facility]IES - [address] [phone] [facility] (ABNORMAL) Calcium, Total (09/30/2011 5:14 AM CDT) [facility] Method Time Signature Calcium, 8.6 (L) 8.9 - 10.1 [facility] Total, S MG/DL LABORATORIES - [facility] Specimen Anatomical Collection Method Collection Time Receive d Time (Source) Location / / Volume Laterality 09/30/2011 5:14 AM 04/09/201 2 5:14 CDT AM CDT Van Barron M.D. LAB BLOOD ADD-ON Performing Organization Address City/[facility]/ZIP Code Phon e Number [facility]IES - [address] Bilirubin (09/30/2011 5:14 AM CDT) P athologist Signature Bilirubin, 0.4 0.1 - 1.0 [facility] Total, S MG/DL LABORATORIES - [facility] Bilirubin, 0.3 0.0 - 0.3 [facility] Direct, S MG/DL LABORATORIES - [facility] Specimen Anatomical Collection Method Collection Time Receive d Time (Source) Location / / Volume Laterality 09/30/2011 5:14 AM 2 5:14 CDT AM CDT Van Barron M.D. LAB BLOOD ADD-ON Performing Organization Address [facility] Phon e Number [facility]ATORIES - [address] US Liver Drainage with Imaging Guidance (09/29/2011 [...] tract serially dilated, and then a 10 Tunisian catheter was advanced over the wire i [...] Electronically signed by: ?? Dorene Foreman MD [phone] ??F49 2 14:16 ?Clementina Ruelas MD [phone] 29-Sep-2011 14:16 Procedure Note Chelsy Foreman M.D. [...] tract serially dilated, and then a 10 Tunisian catheter was advanced over the wire into [...] discussed. Electronically signed by: Dorene Foreman MD [phone] [id number] 29-Sep-2011 14:16 Clementina Ruelas MD [phone] 29-Sep-2011 14:16 Anatoliy Bernardo M.D. IMG US PROCEDURES Microbiology Reports (09/29/2011 12:51 PM CDT) Specimen Anatomical Collection Method Collection Time Receive d Time (Source) Location / / Volume Laterality 09/29/2011 12:51 09/29/2011 2:13 PM CDT PM CDT Narrative [facility] - 10/24/2011 1:03 AM CDT 29-SEP-2011 LIVER, FLUID ? SoftOrd# [id number] ?(Specimen Collected 12:51; Received 29-SEP-2011 14:44) ? [...] Procedure Note 10/01/2017 29-SEP-2011 LIVER, FLUID SoftOrd# [id number] (Specimen Collected 29-SEP-2011 12:51; Received 29-SEP-2011 14:44) [...] Address City/State/ZIP Code Phon e Number [facility]IES - [address] [place], [place] [address] [facility] (ABNORMAL) CBC with Differential - No Alerts (09/29/2011 5:13 AM CDT) [facility] Method Time Signature Hemoglobin 9.6 (L) 13.5 - [facility] 17.5 G/DL LABORATORIES - [facility] Hematocrit 30.1 (L) 38.8 - [facility] 50.0 % LABORATORIES - [facility] RBC Distrib 12.6 11.8 - [facility] Width 15.6 % LABORATORIES - [facility] Platelet Count 221 150 - 450 [facility] X10(9)/L LABORATORIES - [facility] Lymphocytes 1.80 0.90 - [facility] 2.90 LABORATORIES - X10(9)/L [facility] Monocytes 1.27 (H) 0.30 - [facility] 0.90 LABORATORIES - X10(9)/L [facility] Erythrocytes 3.33 (L) 4.32 - [facility] 5.72 LABORATORIES - X10(12)/L [facility] MCV 90.4 81.2 - [facility] 95.1 FL LABORATORIES - [facility] Leukocytes 11.6 (H) 3.5 - [facility] 10.5 LABORATORIES - X10(9)/L [facility] Neutrophils 8.38 (H) 1.70 - [facility] 7.00 LABORATORIES - X10(9)/L [facility] Eosinophils 0.13 0.05 - [facility] 0.50 LABORATORIES - X10(9)/L [facility] Basophils 0.02 0.00 - [facility] 0.30 LABORATORIES - X10(9)/L [facility] Specimen Anatomical Collection Method Collection Time Receive d Time (Source) Location / / Volume Laterality 09/29/2011 5:13 AM 2 5:13 CDT AM CDT Historical Provider LAB BLOOD NON ADD-ON Performing Organization Address City/State/[facility] Code Phon e Number [facility]ATORIES - [address] [place], [place] [address] [facility] (ABNORMAL) Alkaline Phosphatase (09/29/2011 5:13 AM CDT) [facility] Method Time Signature Alkaline 434 (H) 45 - 115 [facility] Phosphatase, S U/L LABORATORIES - [facility] Specimen Anatomical Collection Method Collection Time Receive d Time (Source) Location / / Volume Laterality 09/29/2011 5:13 AM 2 5:13 CDT AM CDT Historical Provider LAB BLOOD ADD-ON Performing Organization Address City/State/[facility] Code Phon e Number [facility]IES - [address] [phone] [facility] (ABNORMAL) PT (Prothrombin Time) with INR (09/29/2011 5:13 AM CDT) [facility] Method Time Signature Prothrombin 14.5 (H) 9.5 - [facility] Time, P 13.8 SEC LABORATORIES - [facility] INR 1.2 0.8 - 1.2 [facility] Specimen Anatomical Collection Method Collection Time Receive d Time (Source) Location / / Volume Laterality 09/29/2011 5:13 AM 2 5:13 CDT AM CDT Historical Provider LAB BLOOD ADD-ON Performing Organization Address City/[facility]/ZIP Code Phon e Number [facility]IES - [address] [phone] [facility] (ABNORMAL) AST (Aspartate Aminotransferase) (09/29/2011 5:13 AM CDT) [facility] Time Signature AST, Total, S 64 (H) 8 - 48 U/L [facility] Specimen Anatomical Collection Method Collection Time Receive d Time (Source) Location / / Volume Laterality 09/29/2011 5:13 AM 2 5:13 CDT AM CDT Historical Provider LAB BLOOD ADD-ON Performing Organization Address City/State/ZIP Code Phon e Number [facility]IES - [address] [phone] [facility] (ABNORMAL) Electrolyte (Chem 4) Panel (09/29/2011 5:13 AM CDT) [facility] Method Time Signature Sodium, S 134 (L) 135 - 145 [facility] MMOL/L LABORATORIES - [facility] Potassium, S 4.2 3.6 - 5.2 [facility] MMOL/L LAB[facility]ATORIES - [facility] Chloride, S 99 (L) 100 - 108 [facility] MMOL/L [facility]IES - [facility] HX Bicarbonate, 23 22 - 29 [facility] P/S MMOL/L LABORATORIES - [facility] Creatinine 1.3 0.8 - 1.3 [facility] MG/DL LABORATORIES - [facility] eGFR 57 (L) >60 [facility] Non-Black/Afric ML/MIN/BS LABORATORIES - an [place] A [facility] eGFR-Black/Afri >60 >60 [facility] can [place] ML/MIN/BS LABORATORIES - A [facility] BUN (Blood Urea 27 (H) 8 - 24 [facility] Nitrogen), S MG/DL LABORATORIES - [facility] Anion Gap 12 7 - 15 [facility]IES - [facility] Glucose, S 188 (H) 70 - 140 [facility] MG/DL LAB[facility]ATORIES - [facility] Specimen Anatomical Collection Method Collection Time Receive d Time (Source) Location / / Volume Laterality 09/29/2011 5:13 AM 2 5:13 CDT AM CDT Historical Provider LAB BLOOD ADD-ON Performing Organization Address City/State/ZIP Code Phon e Number [facility]IES - [address] [place], [place] [address] [facility] (ABNORMAL) ALT (Alanine Aminotransferase) (09/29/2011 5:13 AM CDT) Component Value Ref Test Analysis Performed At Patholo gist Range Method Time Signature Alanine 126 (H) 7 - 55 [facility] Aminotransferase U/L LABORATORIES - (ALT), S [facility] Specimen Anatomical Collection Method Collection Time Receive d Time (Source) Location / / Volume Laterality 09/29/2011 5:13 AM 2 5:13 CDT AM CDT Historical Provider LAB BLOOD ADD-ON Performing Organization Address City/State/ZIP Code Phon e Number [facility] - [address] [place], [place] [address] [facility] Magnesium (09/29/2011 5:13 AM CDT) P athologist Signature Magnesium, S 2.0 1.7 - 2.3 [facility] MG/DL LABORATORIES - [facility] Specimen Anatomical Collection Method Collection Time Receive d Time (Source) Location / / Volume Laterality 09/29/2011 5:13 AM 2 5:13 CDT AM CDT Historical Provider LAB BLOOD ADD-ON Performing Organization Address City/State/ZIP Code Phon e Number [facility]IES - [address] [place], [place] [address] [facility] Tacrolimus Level (09/29/2011 5:13 AM CDT) Analysis Performed At Patho logist Time Signature Tacrolimus, B 6.6 5.0-15.0 [facility] (Trough) LABORATORIES - NG/ML [facility] Tacrolimus . [facility] Blood Date of LABORATORIES - Last Dose [facility] Comment: Not Specified Tacrolimus Time of Last Dose . M [facility] Comment: Not Specified Tacrolimus Blood Dose, mg . [facility] Comment: Not Specified Specimen Anatomical Collection Method Collection Time Receive d Time (Source) Location / / Volume Laterality 09/29/2011 5:13 AM 2 5:13 CDT AM CDT Historical Provider LAB BLOOD NON ADD-ON Performing Organization Address City/[facility] Phon e Number [facility]IES - [address] [phone] [facility] (ABNORMAL) Albumin (09/29/2011 5:13 AM CDT) P athologist Signature Albumin, S 3.1 (L) 3.5 - 5.0 [facility] G/DL [facility] Specimen Anatomical Collection Method Collection Time Receive d Time (Source) Location / / Volume Laterality 09/29/2011 5:13 AM 2 5:13 CDT AM CDT Historical Provider LAB BLOOD ADD-ON Performing Organization Address City/[facility] Phon e Number [facility]IES - [address] [phone] [facility] (ABNORMAL) Bilirubin (09/29/2011 5:13 AM CDT) [facility] Method Time Signature Bilirubin, 0.8 0.1 - 1.0 [facility] Total, S MG/DL [facility] Bilirubin, 0.5 (H) 0.0 - 0.3 [facility] Direct, S MG/DL [facility] Specimen Anatomical Collection Method Collection Time Receive d Time (Source) Location / / Volume Laterality 09/29/2011 5:13 AM 2 5:13 CDT AM CDT Historical Provider LAB BLOOD ADD-ON Performing Organization Address City/[facility] Phon e Number [facility]IES - [address] [phone] [facility] (ABNORMAL) Calcium, Total (09/29/2011 5:13 AM CDT) [facility] gist Method Time Signature Calcium, 8.6 (L) 8.9 - 10.1 [facility] Total, S MG/DL [facility] Specimen Anatomical Collection Method Collection Time Receive d Time (Source) Location / / Volume Laterality 09/29/2011 5:13 AM 2 5:13 CDT AM CDT Historical Provider LAB BLOOD ADD-ON Performing Organization Address [facility] Phon e Number [facility] - [address] [phone] [facility] (ABNORMAL) Microscopic Manual (09/28/2011 8:13 PM CDT) [facility] Method Time Signature Microscopy Abnormal [facility] Blood 3-10 (A) <3; /HPF [facility] Dysmorphic RBC <25 <25 % [facility] WBC 1-3 1-3 [facility] (Males); LABORATORIES - 1-10 [facility] (Females) [place] ; /HPF Specimen Anatomical Collection Method Collection Time Receive d Time (Source) Location / / Volume Laterality 09/28/2011 8:13 PM 2 8:13 CDT PM CDT Van Barron M.D. LAB URINE ORDERABLES Performing Organization Address City/[facility]/ZIP Code Phon e Number [facility] - [address] [phone] [facility] Gram Stain, Urine (09/28/2011 8:13 PM CDT) [facility] Method [facility] Gram's Stain, Negative [facility] Screen, U [facility] Specimen Anatomical Collection Method Collection Time Receive d Time (Source) Location / / Volume Laterality 09/28/2011 8:13 PM 2 8:13 CDT PM CDT Van Barron M.D. LAB URINE ORDERABLES Performing Organization Address City/[facility]/ZIP [facility] Phon e Number [facility] - [address] [phone] [facility] (ABNORMAL) Urinalysis with Microscopic (09/28/2011 8:13 PM CDT) [facility] Method Time Signature Source Midstream [facility] Osmolality, 24 624 150 - 1150 [facility] HR, U MOSM/KG [facility] Glucose 53 (H) <25; MG/DL [facility] Protein, U 28 MG/DL [facility] Protein/Osmola 0.45 (H) <0.12 RATIO [facility] lity [facility] Predicted 24 439 MG/24 H [facility] Hr Protein [facility] pH, 24 HR, U 5.7 4.5 - 8.0 [facility] Appearance Normal Normal [facility] Predicted 139-1382 MG/24 H [facility] Range [facility] Hemoglobin, QL Small (A) Negative [facility] Specimen Anatomical Collection Method Collection Time Receive d Time (Source) Location / / Volume Laterality 09/28/2011 8:13 PM 2 8:13 CDT PM CDT Van Barron M.D. LAB URINE ORDERABLES Performing Organization Address City/State/ZIP Code Phon e Number [facility] - [address] [place], [place] [address] [facility] Microbiology Reports (09/28/2011 6:35 PM CDT) Specimen Anatomical Collection Method Collection Time Receive d Time (Source) Location / / Volume Laterality 09/28/2011 6:35 PM 2 6:35 CDT PM CDT Narrative [facility] - 10/04/2011 3:53 PM CDT 28-SEP-2011 BLOOD, ? SoftOrd# [id number] ?(Specimen Collected 18:35; Received 28-SEP-2011 19:05) ? Dept Lab Med Path ?BACTERIA/MARRY CULTURE, BLOOD ? (Reported 04-OCT-2011 15:53) FINAL ?STREPTOCOCCUS VIRIDANS GROUP ??Growth after 28 Hours ?2 of 3 Bottles Susceptibi lities performed on another specimen [id number] Previous comment was ?modified at 21:17 on 02/2012 1 of 3 Bottles, ?MICROCOCCUS sp ?Growth after 28 Hours ?1 of 3 Bottles Susceptibi lities performed on another specimen [id number] Procedure Note 10/01/2017 28-SEP-2011 BLOOD, SoftOrd# [id number] (Specimen Collected 28-SEP-2011 18:35; Received 28-SEP-2011 19:05) Dept Lab Med Path BACTERIA/MARRY CULTURE, BLOOD (Repor onel 04-OCT-2011 15:53) FINAL STREPTOCOCCUS VIRIDANS GROUP Growth aft er 28 Hours 2 of 3 Bottles Susceptibilities perform ed on another specimen [id number] Previous comment was modified at 21:17 on 09/30/2011 1 of 3 Bottles, MICROCOCCUS sp Growth after 28 Hours 1 of 3 Bottles Susceptibilities perform ed on another specimen [id number] Van Barron M.D. LAB MICROBIOLOGY - GEN ERAL ORDERABLES Performing Organization Address City/State/ZIP Code Phon e Number [facility] - [address] (ABNORMAL) PT (Prothrombin Time) with INR (09/28/2011 6:34 PM CDT) [facility] gist Method Time Signature Prothrombin 14.5 (H) 9.5 - [facility] Time, P 13.8 SEC [facility] INR 1.2 0.8 - 1.2 [facility] Specimen Anatomical Collection Method Collection Time Receive d Time (Source) Location / / Volume Laterality 09/28/2011 6:34 PM 2 6:34 CDT PM CDT Van Barron M.D. LAB BLOOD ADD-ON Performing Organization Address City/[facility]/ZIP Code Phon e Number [facility] - [address] [phone] [facility] Microbiology Reports (09/28/2011 6:31 PM CDT) Specimen Anatomical Collection Method Collection Time Receive d Time (Source) Location / / Volume Laterality 09/28/2011 6:31 PM 09/27/ 2 6:32 CDT PM CDT Narrative [facility] - 10/04/2011 3:53 PM CDT 28-SEP-2011 BLOOD, ? SoftOrd# [id number] ?(Specimen Collected 18:31; Received 28-SEP-2011 19:05) ? [...] 10/02/2011 Procedure Note 10/01/2017 28-SEP-2011 BLOOD, SoftOrd# [id number] (Specimen Collected 28-SEP-2011 18:31; Received 28-SEP-2011 19:05) [...] - GEN ERAL ORDERABLES Performing Organization Address City/[facility] Phon e Number [facility]ATORIES - [address] [phone] [facility] (ABNORMAL) Magnesium (09/28/2011 6:31 PM CDT) Analysis Performed At Patho logist Time Signature Magnesium, S 1.6 (L) 1.7 - 2.3 [facility] MG/DL LABORATORIES - [facility] Specimen Anatomical Collection Method Collection Time Receive d Time (Source) Location / / Volume Laterality 09/28/2011 6:31 PM 2 6:31 CDT PM CDT Van Barron M.D. LAB BLOOD ADD-ON Performing Organization Address City/[facility] Phon e Number [facility]IES - [address] [phone] [facility] (ABNORMAL) AST (Aspartate Aminotransferase) (09/28/2011 6:31 PM CDT) Analysis Performed At Patho logist Time Signature AST, Total, S 94 (H) 8 - 48 U/L [facility] LABORATORIES [facility] Specimen Anatomical Collection Method Collection Time Receive d Time (Source) Location / / Volume Laterality 09/28/2011 6:31 PM 2 6:31 CDT PM CDT Van Barron M.D. LAB BLOOD ADD-ON Performing Organization Address City/[facility] Phon e Number [facility] - [address] [phone] [facility] (ABNORMAL) ALT (Alanine Aminotransferase) (09/28/2011 6:31 PM CDT) Component Value Ref Test Analysis Performed At Patholo gist Range Method Time Signature Alanine 153 (H) 7 - 55 [facility] Aminotransferase U/L LABORATORIES - (ALT), S [facility] Specimen Anatomical Collection Method Collection Time Receive d Time (Source) Location / / Volume Laterality 09/28/2011 6:31 PM 2 6:31 CDT PM CDT Van Barron M.D. LAB BLOOD ADD-ON Performing Organization Address City/[facility] Code Phon e Number [facility]IES - [address] [place], [place] [address] [facility] (ABNORMAL) Bilirubin (09/28/2011 6:31 PM CDT) [facility] Method Time Signature Bilirubin, 1.1 (H) 0.1 - 1.0 [facility] Total, S MG/DL LABORATORIES - [facility] Bilirubin, 0.7 (H) 0.0 - 0.3 [facility] Direct, S MG/DL LABORATORIES - [facility] Specimen Anatomical Collection Method Collection Time Receive d Time (Source) Location / / Volume Laterality 09/28/2011 6:31 PM 2 6:31 CDT PM CDT Van Barron M.D. LAB BLOOD ADD-ON Performing Organization Address City/[facility]/ZIP Code Phon e Number [facility]IES - [address] [place], [place] [address] [facility] (ABNORMAL) Alkaline Phosphatase (09/28/2011 6:31 PM CDT) [facility] Method Time Signature Alkaline 481 (H) 45 - 115 [facility] Phosphatase, S U/L LABORATORIES - [facility] Specimen Anatomical Collection Method Collection Time Receive d Time (Source) Location / / Volume Laterality 09/28/2011 6:31 PM 2 6:31 CDT PM CDT Van Barron M.D. LAB BLOOD ADD-ON Performing Organization Address City/[facility] Phon e Number [facility]IES - [address] [phone] [facility] (ABNORMAL) CBC with Differential (09/28/2011 6:31 PM CDT) [facility] Method Time Signature Erythrocytes 3.37 (L) 4.32 - [facility] 5.72 LABORATORIES - X10(12)/L [facility] MCV 86.4 81.2 - [facility] 95.1 FL LABORATORIES - [facility] Lymphocytes 1.01 0.90 - [facility] 2.90 LABORATORIES - X10(9)/L [facility] Monocytes 1.00 (H) 0.30 - [facility] 0.90 LABORATORIES - X10(9)/L [facility] Hemoglobin 9.8 (L) 13.5 - [facility] 17.5 G/DL LABORATORIES - [facility] Hematocrit 29.1 (L) 38.8 - [facility] 50.0 % LABORATORIES - [facility] RBC Distrib 12.6 11.8 - [facility] Width 15.6 % LABORATORIES - [facility] Platelet Count 258 150 - 450 [facility] X10(9)/L LABORATORIES - [facility] Leukocytes 14.0 (H) 3.5 - [facility] 10.5 LABORATORIES - X10(9)/L [facility] Neutrophils 11.93 (H) 1.70 - [facility] 7.00 LABORATORIES - X10(9)/L [facility] Eosinophils 0.05 0.05 - [facility] 0.50 LABORATORIES - X10(9)/L [facility] Basophils 0.02 0.00 - [facility] 0.30 LABORATORIES - X10(9)/L [facility] Specimen Anatomical Collection Method Collection Time Receive d Time (Source) Location / / Volume Laterality 09/28/2011 6:31 PM 2 6:31 CDT PM CDT Van Barron M.D. LAB BLOOD ADD-ON Performing Organization Address City/State/ZIP Code Phon e Number [facility]IES - [address] [place], [place] [address] [facility] (ABNORMAL) Electrolyte (Chem 4) Panel (09/28/2011 6:31 PM CDT) [facility] Method Time Signature Sodium, P 130 (L) 135 - 145 [facility] MMOL/L LABORATORIES - [facility] BUN (Blood Urea 26 (H) 8 - 24 [facility] Nitrogen), S MG/DL [facility] - [facility] eGFR >60 >60 [facility] Non-Black/Afric ML/MIN/BS LABORATORIES - an [place] A [facility] eGFR-Black/Afri >60 >60 [facility] can [place] ML/MIN/BS LABORATORIES - A [facility] Potassium, P 4.2 3.6 - 5.2 [facility] MMOL/L LABORATORIES [facility] Chloride, S 97 (L) 100 - 108 [facility] MMOL/L LABORATORIES [facility] HX Bicarbonate, 21 (L) 22 - 29 [facility] P/S MMOL/L LABORATORIES - [facility] Creatinine 1.2 0.8 - 1.3 [facility] MG/DL LABORATORIES - [facility] Glucose, S 220 (H) 70 - 140 [facility] MG/DL LABORATORIES - [facility] Specimen Anatomical Collection Method Collection Time Receive d Time (Source) Location / / Volume Laterality 09/28/2011 6:31 PM 2 6:31 CDT PM CDT Van Barron M.D. LAB BLOOD ADD-ON Performing Organization Address City/State/ZIP Code Phon e Number [facility]ATORIES - [address] [phone] [facility] documented in this encounter Visit Diagnoses Not on filedocumented in this encounter
--- OUTSIDE RECORDS SUMMARY | 2022-05-17 19:16 | XMS_ITS | Encounter Summary ---
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 [address] [place] [phone] 05/23/2022 Clinical Admitting/Central Communication Scheduling 05/27/2022 Comprehensive Visit Orthopedic Surgery Markus Sams M.D., Ph.D. [address] [place] [phone] 05/29/2022 Office Visit Otorhinolaryngology Dex Matta APRN, C.N.P., M.S.N. [address] [place] [phone] 05/29/2022 Office Visit Otorhinolaryngology Nadeem Maradiaga, PMaryanne., M.S. [address] [place] [phone] 05/31/2022 Appointment Radiology Guilherme Matt, RASTA, PMaryanne., M.S. [address] [place] [phone] 06/05/2022 Appointment Laboratory Medicine Angélica Granger P.A.-C. [address] [place] [phone] 06/19/2022 Appointment Laboratory Medicine Angélica Granger P.A.-C. [address] [place] [phone] 07/03/2022 Appointment Laboratory Medicine Angélica Granger P.A.-C. [address] [place] [phone] 07/17/2022 Appointment Laboratory Medicine Angélica Granger P.A.-C. [address] [place] [phone] 07/31/2022 Appointment Laboratory Medicine Angélica Granger P.A.-C. [address] [place] [address] [phone] 08/14/2022 Appointment Laboratory Medicine Angélica Granger P.A.-C. [address] [place] [address] [phone] 08/28/2022 Appointment Laboratory Medicine Angélica Granger P.A.-C. [address] [place] [address] [phone] documented as of this encounter Visit Diagnoses Not on filedocumented in this encounter
--- OUTSIDE RECORDS SUMMARY | 2022-05-17 19:16 | XMS_ITS | Encounter Summary ---
:1955 Author Organization [facility] Address [address] [place] [address] Care Team Providers Name Role Phone Unavailable Primary Care Provider Unavailable Encounter Details Date Type Department Care Team Description 11/07/2011 - Hospital Encounter HX RST INFUSION Jane Carey, 11/14/2011 THERAPY R.N. 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 [address] [place] [phone] 05/23/2022 Clinical Admitting/Central Communication Scheduling 05/27/2022 Comprehensive Visit Orthopedic Surgery Markus Sams M.D., Ph.D. [address] [place] [address] [phone] 05/29/2022 Office Visit Otorhinolaryngology Dex Matta APRN, C.N.P., M.S.N. [address] [place] [address] [phone] 05/29/2022 Office Visit Otorhinolaryngology Nadeem Maradiaga, P.Murtaza.Marie., M.S. [address] [place] [address] [phone] 05/31/2022 Appointment Radiology Guilherme Matt MPAS, P.Murtaza.Marie., M.S. [address] [place] [phone] 06/05/2022 Appointment Laboratory Medicine Angélica Granger P.A.-C. [address] [place] [phone] 06/19/2022 Appointment Laboratory Medicine Angélica Granger P.A.-C. [address] [place] [phone] 07/03/2022 Appointment Laboratory Medicine Angélica Granger P.A.-C. [address] [place] [phone] 07/17/2022 Appointment Laboratory Medicine Angélica Granger P.A.-C. [address] [place] [phone] 07/31/2022 Appointment Laboratory Medicine Angélica Granger P.A.-C. [address] [place] [phone] 08/14/2022 Appointment Laboratory Medicine Angélica Granger P.A.-C. [address] [place] [phone] 08/28/2022 Appointment Laboratory Medicine Angélica Granger P.A.-C. [address] [place] [address] [phone] documented as of this encounter Visit Diagnoses Not on filedocumented in this encounter
--- OUTSIDE RECORDS SUMMARY | 2022-05-17 19:16 | XMS_ITS | Encounter Summary ---
:1955 Author Organization [facility] Address [address] [place] [address] Care Team Providers Name Role Phone Unavailable Primary Care Provider Unavailable Encounter Details Date Type Department Care Team Description 10/29/2011 Hospital Encounter HX [facility]ST [facility] Theresa Grace M.S.N., R.N., C.C.T.C. 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 [address] [place] [phone] 05/23/2022 Clinical Admitting/Central Communication Scheduling 05/27/2022 Comprehensive Visit Orthopedic Surgery Markus Sams M.D., Ph.D. [address] [place] [address] [phone] 05/29/2022 Office Visit Otorhinolaryngology Dex Matta APRN, C.N.P., M.S.N. [address] [place] [phone] 05/29/2022 Office Visit Otorhinolaryngology Nadeem Maradiaga, P.A.-Arley., M.S. [address] [place] [phone] 05/31/2022 Appointment Radiology Guilherme Matt, RASTA, P.Murtaza.Marie., M.S. [address] [place] [phone] 06/05/2022 Appointment Laboratory Medicine Angélica Granger P.A.-C. [address] [place] [phone] 06/19/2022 Appointment Laboratory Medicine Angélica Granger P.A.-C. [address] [place] [phone] 07/03/2022 Appointment Laboratory Medicine Angélica Granger P.A.-C. [address] [place] [phone] 07/17/2022 Appointment Laboratory Medicine Angélica Granger P.A.-C. [address] [place] [phone] 07/31/2022 Appointment Laboratory Medicine Angélica Granger P.A.-C. [address] [place] [phone] 08/14/2022 Appointment Laboratory Medicine Angélica Granger P.A.-C. [address] [place] [phone] 08/28/2022 Appointment Laboratory Medicine Angélica Granger P.A.-C. [address] [place] [address] [phone] documented as of this encounter Visit Diagnoses Not on filedocumented in this encounter
--- OUTSIDE RECORDS SUMMARY | 2022-05-17 19:16 | XMS_ITS | Encounter Summary ---
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 [address] [place] [phone] 05/23/2022 Clinical Admitting/Central Communication Scheduling 05/27/2022 Comprehensive Visit Orthopedic Surgery Markus Sams M.D., Ph.D. [address] [place] [phone] 05/29/2022 Office Visit Otorhinolaryngology Dex Matta APRN, C.N.P., M.S.N. [address] [place] [phone] 05/29/2022 Office Visit Otorhinolaryngology Nadeem Maradiaga, PMaryanne., M.S. [address] [place] [phone] 05/31/2022 Appointment Radiology Guilherme Matt, RASTA, PMaryanne., M.S. [address] [place] [phone] 06/05/2022 Appointment Laboratory Medicine Angélica Granger P.A.-C. [address] [place] [phone] 06/19/2022 Appointment Laboratory Medicine Angélica Granger P.A.-C. [address] [place] [phone] 07/03/2022 Appointment Laboratory Medicine Angélica Granger P.A.-C. [address] [place] [phone] 07/17/2022 Appointment Laboratory Medicine Angélica Granger P.A.-C. [address] [place] [phone] 07/31/2022 Appointment Laboratory Medicine Angélica Granger P.A.-C. [address] [place] [address] [phone] 08/14/2022 Appointment Laboratory Medicine Angélica Granger P.A.-C. [address] [place] [address] [phone] 08/28/2022 Appointment Laboratory Medicine Angélica Granger P.A.-C. [address] [place] [address] [phone] documented as of this encounter Visit Diagnoses Not on filedocumented in this encounter
--- OUTSIDE RECORDS SUMMARY | 2022-05-17 19:17 | XMS_ITS | Encounter Summary ---
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 [address] [place] [phone] 05/23/2022 Clinical Admitting/Central Communication Scheduling 05/27/2022 Comprehensive Visit Orthopedic Surgery Markus Sams M.D., Ph.D. [address] [place] [phone] 05/29/2022 Office Visit Otorhinolaryngology Dex Matta APRN, C.N.P., M.S.N. [address] [place] [phone] 05/29/2022 Office Visit Otorhinolaryngology Nadeem Maradiaga, PEdgar.Marie., M.S. [address] [place] [phone] 05/31/2022 Appointment Radiology Guilherme Matt MPAS, PMaryanne., M.S. [address] [place] [phone] 06/05/2022 Appointment Laboratory Medicine Angélica Granger P.A.-C. [address] [place] [phone] 06/19/2022 Appointment Laboratory Medicine Angélica Granger P.A.-C. [address] [place] [phone] 07/03/2022 Appointment Laboratory Medicine Angélica Granger P.A.-C. [address] [place] [phone] 07/17/2022 Appointment Laboratory Medicine Angélica Granger P.A.-C. [address] [place] [phone] 07/31/2022 Appointment Laboratory Medicine Angélica Granger P.A.-C. [address] [place] [phone] 08/14/2022 Appointment Laboratory Medicine Angélica Granger P.A.-C. [address] [place] [phone] 08/28/2022 Appointment Laboratory Medicine Angélica Granger P.A.-C. [address] [place] [phone] documented as of this encounter Visit Diagnoses Not on filedocumented in this encounter Additional Health Concerns Infection Onset Date Last Indicated Resolved Time COVID19 Pending 12/13/2019 12/13/2019 12/14/2019 11:03 AM CDT COVID19 Pending 01/26/2020 01/27/2020 01/28/2020 12:12 AM CDT documented as of this encounter Care Teams [employer] Technician Relationship Specialty Start Date End Date Elsewhere, Pcp PCP - General Family Medicine 07/29/17 [facility] - Laboratory Medicine 04/12/[address] [phone] documented as of this encounter
--- OUTSIDE RECORDS SUMMARY | 2022-05-17 19:17 | XMS_ITS | Encounter Summary ---
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 Temperature - - Respiratory Rate 12 08/20/2011 9:59 PM PLANT CLERK Value fr om [employer]. Oxygen Saturation - - Inhaled Oxygen Concentration - - Weight - - Height - - Body Mass Index - - documented in this encounter Plan of Treatment Upcoming Encounters Date Type Specialty Care Team Description 05/22/2022 Appointment Laboratory Medicine Angélica Granger P.A.-C. [address] [place] [phone] 05/23/2022 Clinical Admitting/Central Communication Scheduling 05/27/2022 Comprehensive Visit Orthopedic Surgery Markus Sams M.D., Ph.D. [address] [place] [phone] 05/29/2022 Office Visit Otorhinolaryngology Dex Matta APRN, C.N.P., M.S.N. [address] [place] [address] [phone] 05/29/2022 Office Visit Otorhinolaryngology Nadeem Maradiaga, P.A.-C., M.S. [address] [place] [address] [phone] 05/31/2022 Appointment Radiology Guilherme Matt MPAS, P.Murtaza.Marie., M.S. [address] [place] [phone] 06/05/2022 Appointment Laboratory Medicine Angélica Granger P.A.-C. [address] [place] [phone] 06/19/2022 Appointment Laboratory Medicine Angélica Granger P.A.-C. [address] [place] [phone] 07/03/2022 Appointment Laboratory Medicine Angélica Granger P.A.-C. [address] [place] [phone] 07/17/2022 Appointment Laboratory Medicine Angélica Granger P.A.-C. [address] [place] [phone] 07/31/2022 Appointment Laboratory Medicine Angélica Granger P.A.-C. [address] [place] [phone] 08/14/2022 Appointment Laboratory Medicine Angélica Granger P.A.-C. [address] [place] [phone] 08/28/2022 Appointment Laboratory Medicine Angélica Granger P.A.-C. [address] [place] [phone] documented as of this encounter Procedures Procedure Name Priority Date/Time Associated Comments Diagnosis HX MICROBIOLOGY REPORTS Routine 08/20/2011 6:52 R esults for this PM PLANT CLERK procedure are i n the results section. MICROSCOPIC MANUAL Routine 08/20/2011 6:52 Result s for this PM PLANT CLERK procedure are i n the results section. GRAM'S ST, U Routine 08/20/2011 6:52 Results for this PM PLANT CLERK procedure are i n the results section. URINALYSIS WITH Routine 08/20/2011 6:52 Results f or this MICROSCOPIC PM PLANT CLERK procedure are i n the results section. HX MICROBIOLOGY REPORTS Routine 08/20/2011 6:44 R esults for this PM PLANT CLERK procedure are i n the results section. HX MICROBIOLOGY REPORTS Routine 08/20/2011 6:35 R esults for this PM PLANT CLERK procedure are i n the results section. INTERPRETATION OF Routine 08/20/2011 6:35 Results for this OUTSIDE DX ABDOMEN PM PLANT CLERK procedure are in the results section. ELECTROLYTE (CHEM 4) Routine 08/20/2011 6:35 Resu lts for this PANEL, S/P PM PLANT CLERK procedure are i n the results section. NT-PRO B-TYPE Routine 08/20/2011 6:35 Results for this NATRIURETIC PEPTIDE PM PLANT CLERK procedur e are in (BNP), S the results section. PROTHROMBIN TIME (PT), P Routine 08/20/2011 6:35 Results for this PM PLANT CLERK procedure are i n the results section. CBC WITH DIFFERENTIAL, B Routine 08/20/2011 6:35 Results for this PM PLANT CLERK procedure are i n the results section. ALANINE AMINOTRANSFERASE Routine 08/20/2011 6:35 Results for this (ALT), S/P PM PLANT CLERK procedure are i n the results section. ASPARTATE Routine 08/20/2011 6:35 Results for this AMINOTRANSFERASE (AST), PM PLANT CLERK proc edure are in S/P the results section. ALKALINE PHOSPHATASE, Routine 08/20/2011 6:35 Res ults for this S/P PM PLANT CLERK procedure are i n the results section. LIPASE, S/P Routine 08/20/2011 6:35 Results for this PM PLANT CLERK procedure are i n the results section. BILIRUBIN DIRECT, S/P Routine 08/20/2011 6:35 Res ults for this PM PLANT CLERK procedure are i n the results section. BILIRUBIN, TOT, S/P Routine 08/20/2011 6:35 Resul ts for this PM PLANT CLERK procedure are i n the results section. AMYLASE, TOT, S Routine 08/20/2011 6:35 Results f or this PM PLANT CLERK procedure are i n the results section. INTERPRETATION OF Routine 08/20/2011 6:33 Results for this OUTSIDE CT ABDOMEN AND PM PLANT CLERK proce dure are in OR PELVIS the results section. LACTATE, POCT, B Routine 08/20/2011 6:32 Results for this PM PLANT CLERK procedure are i n the results section. GLUCOSE POCT, B Routine 08/20/2011 6:32 Results f or this PM PLANT CLERK procedure are i n the results section. documented in this encounter Results Microbiology Reports (08/20/2011 6:52 PM PLANT CLERK) Specimen Anatomical Collection Method Collection Time Receive d Time (Source) Location / / Volume Laterality 08/20/2011 6:52 PM 2 6:52 PLANT CLERK PM PLANT CLERK Narrative [facility] - 08/22/2011 6:48 AM PLANT CLERK 20-AUG-2011 URINE, MIDSTREAM, ?SoftOrd# [id number] ?(Specimen Collected 18:52; Received 20-AUG-2011 20:41) ? Dept Lab Med Path ?Bacterial aerobic susceptibi lities requested. ?BACTERIAL CULTURE, AEROBIC, URI NE ? (Reported 22-AUG-2011 06:48) FINAL ?No Growth after 1 day of inc ubation. Procedure Note 10/01/2017 20-AUG-2011 URINE, MIDSTREAM, SoftOrd# [id number] (Specimen Collected 20-AUG-2011 18:52; Received 20-AUG-2011 20:41) Dept Lab Med Path Bacterial aerobic susceptibilities requ ested. BACTERIAL CULTURE, AEROBIC, URINE (Rep orted 22-AUG-2011 06:48) FINAL No Growth after 1 day of incubation. Thelma Freitas M.D., Ph.D. LAB MICROBIOLOGY - GENERA L ORDERABLES Performing Organization Address City/State/ZIP Code Phon e Number [facility] - [address] [place], [place] [address] [facility] Microscopic Manual (08/20/2011 6:52 PM PLANT CLERK) [facility] Method Time Signature Microscopy Normal [facility] Blood <3 <3; /HPF [facility] Casts, Hyaline 1-3 /LPF [facility] Specimen Anatomical Collection Method Collection Time Receive d Time (Source) Location / / Volume Laterality 08/20/2011 6:52 PM 2 6:52 PLANT CLERK PM PLANT CLERK Thelma Freitas M.D., Ph.D. LAB URINE ORDERABLES Performing Organization Address City/[facility] Code Phon e Number [facility] LABORATORIES - [address] [place] [address] [facility] Gram Stain, Urine (08/20/2011 6:52 PM PLANT CLERK) [facility] Method Time Signature Gram's Stain, Negative [facility] Screen, U [facility] Specimen Anatomical Collection Method Collection Time Receive d Time (Source) Location / / Volume Laterality 08/20/2011 6:52 PM 2 6:52 PLANT CLERK PM PLANT CLERK Thelma Freitas M.D., Ph.D. LAB URINE ORDERABLES Performing Organization Address [facility] Phon e Number [facility] - [address] (ABNORMAL) Urinalysis with Microscopic (08/20/2011 6:52 PM PLANT CLERK) [facility] Method Time Signature Glucose 10 <25; MG/DL [facility] Protein, U 34 MG/DL [facility] Hemoglobin, QL Negative Negative [facility] Osmolality, 24 762 150 - 1150 [facility] HR, U MOSM/KG [facility] Predicted 24 436 MG/24 H [facility] Hr Protein [facility] Predicted 139-1375 MG/24 H [facility] Range [facility] Source Midstream [facility] Appearance Normal Normal [facility] pH, 24 HR, U 7.4 4.5 - 8.0 [facility] Protein/Osmola 0.45 (H) <0.12 RATIO [facility] lity [facility] Specimen Anatomical Collection Method Collection Time Receive d Time (Source) Location / / Volume Laterality 08/20/2011 6:52 PM 2 6:52 PLANT CLERK PM PLANT CLERK Thelma Freitas M.D., Ph.D. LAB URINE ORDERABLES Performing Organization Address [facility] Phon e Number [facility] - [address] [place] [address] [facility] Microbiology Reports (08/20/2011 6:44 PM PLANT CLERK) Specimen Anatomical Collection Method Collection Time Receive d Time (Source) Location / / Volume Laterality 08/20/2011 6:44 PM 2 6:44 PLANT CLERK PM PLANT CLERK Narrative [facility] - 08/25/2011 11:30 PM PLANT CLERK 20-AUG-2011 BLOOD, ? SoftOrd# [id number] ?(Specimen Collected 18:44; Received 20-AUG-2011 19:57) ? Dept Lab Med Path ?BACTERIA/MARRY CULTURE, BLOOD ? (Reported 25-AUG-2011 23:30) FINAL ?No growth after 5 days of in cubation. Procedure Note 10/01/2017 20-AUG-2011 BLOOD, SoftOrd# [id number] (Specimen Collected 20-AUG-2011 18:44; Received 20-AUG-2011 19:57) Dept Lab Med Path BACTERIA/MARRY CULTURE, BLOOD (Repor onel 25-AUG-2011 23:30) FINAL No growth after 5 days of incubation. Thelma Freitas M.D., Ph.D. LAB MICROBIOLOGY - GENERA L ORDERABLES Performing Organization Address City/State/ZIP Code Phon e Number [facility] - [address] [place], [place] [address] [facility] Microbiology Reports (08/20/2011 6:35 PM PLANT CLERK) Specimen Anatomical Collection Method Collection Time Receive d Time (Source) Location / / Volume Laterality 08/20/2011 6:35 PM 2 6:36 PLANT CLERK PM PLANT CLERK Narrative [facility] - 08/25/2011 11:30 PM PLANT CLERK 20-AUG-2011 BLOOD, ? SoftOrd# [id number] ?(Specimen Collected 18:35; Received 20-AUG-2011 20:04) ? Dept Lab Med Path ?BACTERIA/MARRY CULTURE, BLOOD ? (Reported 25-AUG-2011 23:30) FINAL ?No growth after 5 days of in cubation. Procedure Note 10/01/2017 20-AUG-2011 BLOOD, SoftOrd# [id number] (Specimen Collected 20-AUG-2011 18:35; Received 20-AUG-2011 20:04) Dept Lab Med Path BACTERIA/MARRY CULTURE, BLOOD (Repor onel 25-AUG-2011 23:30) FINAL No growth after 5 days of incubation. Thelma Freitas M.D., Ph.D. LAB MICROBIOLOGY - GENERA L ORDERABLES Performing Organization Address City/State/ZIP Code Phon e Number [facility]IES - [address] [place], [place] [address] [facility] (ABNORMAL) CBC with Differential (08/20/2011 6:35 PM PLANT CLERK) [facility] gist Method Time Signature Hemoglobin 12.9 (L) 13.5 - [facility] 17.5 G/DL [facility] Hematocrit 38.5 (L) 38.8 - [facility] 50.0 % [facility] RBC Distrib 12.3 11.8 - [facility] Width 15.6 % [facility] Platelet Count 215 150 - 450 [facility] X10(9)/L [facility] Leukocytes 13.2 (H) 3.5 - [facility] 10.5 LABORATORIES - X10(9)/L [facility] Neutrophils 9.98 (H) 1.70 - [facility] 7.00 LABORATORIES - X10(9)/L [facility] Lymphocytes 1.75 0.90 - [facility] 2.90 LABORATORIES - X10(9)/L [facility] Monocytes 1.33 (H) 0.30 - [facility] 0.90 LABORATORIES - X10(9)/L [facility] Erythrocytes 4.22 (L) 4.32 - [facility] 5.72 LABORATORIES - X10(12)/L [facility] MCV 91.2 81.2 - [facility] 95.1 FL LABORATORIES - [facility] Eosinophils 0.10 0.05 - [facility] 0.50 LABORATORIES - X10(9)/L [facility] Basophils 0.02 0.00 - [facility] 0.30 LABORATORIES - X10(9)/L [facility] Specimen Anatomical Collection Method Collection Time Receive d Time (Source) Location / / Volume Laterality 08/20/2011 6:35 PM 2 6:35 PLANT CLERK PM PLANT CLERK Thelma Freitas M.D., Ph.D. LAB BLOOD ADD-ON Performing Organization Address City/[facility] Phon e Number [facility] LAB[facility]IES - [address] Bilirubin, Direct (08/20/2011 6:35 PM PLANT CLERK) athologist Signature Bilirubin, 0.2 0.0 - 0.3 [facility] Direct, P MG/DL [facility] Specimen Anatomical Collection Method Collection Time Receive d Time (Source) Location / / Volume Laterality 08/20/2011 6:35 PM 2 6:35 PLANT CLERK PM PLANT CLERK Thelma Freitas M.D., Ph.D. LAB BLOOD ADD-ON Performing Organization Address City/[facility] Phon e Number [facility] LAB[facility]IES - [address] NT-Pro B-Type Natriuretic Peptide (BNP) (08/20/2011 6:35 PM PLANT CLERK) athologist Signature NT-Pro BNP 61 5 - 70 [facility] PG/ML [facility] Comment: NT-proBNP values less than 300 pg/mL [...] / / Volume Laterality 08/20/2011 6:35 PM 02 2 6:35 PLANT CLERK PM PLANT CLERK Thelma Freitas M.D., Ph.D. LAB BLOOD ADD-ON Performing Organization Address City/State/ZIP Code Phon e Number [facility] - [address] [place] [address] [facility] ALT (Alanine Aminotransferase) (08/20/2011 6:35 PM PLANT CLERK) [facility] Method Time Signature Alanine 25 7 - 55 [facility] Aminotransferase U/L LABORATORIES - (ALT), S [facility] Specimen Anatomical Collection Method Collection Time Receive d Time (Source) Location / / Volume Laterality 08/20/2011 6:35 PM 2 6:35 PLANT CLERK PM PLANT CLERK Thelma Freitas M.D., Ph.D. LAB BLOOD ADD-ON Performing Organization Address City/[facility]/ZIP Code Phon e Number [facility] LAB[facility]IES - [address] [place] [address] [facility] Lipase (08/20/2011 6:35 PM PLANT CLERK) P athologist Signature Lipase, S 10 10 - 73 U/L [facility] Specimen Anatomical Collection Method Collection Time Receive d Time (Source) Location / / Volume Laterality 08/20/2011 6:35 PM 2 6:35 PLANT CLERK PM PLANT CLERK Thelma Freitas M.D., Ph.D. LAB BLOOD ADD-ON Performing Organization Address City/[facility]/ZIP Code Phon e Number [facility] LAB[facility]ATORIES - [address] [place] [address] [facility] (ABNORMAL) Amylase, Total (08/20/2011 6:35 PM PLANT CLERK) [facility] Method Time Signature Amylase, 190 (H) 26 - 102 [facility] Total, S U/L LABORATORIES [facility] Specimen Anatomical Collection Method Collection Time Receive d Time (Source) Location / / Volume Laterality 08/20/2011 6:35 PM 2 6:35 PLANT CLERK PM PLANT CLERK Thelma Freitas M.D., Ph.D. LAB BLOOD ADD-ON Performing Organization Address City/[facility]/ZIP Code Phon e Number [facility] LABORATORIES - [address] [place] [address] [facility] PT (Prothrombin Time) with INR (08/20/2011 6:35 PM PLANT CLERK) [facility] Method Time Signature Prothrombin 11.8 9.5 - 13.8 [facility] Time, P SEC LABORATORIES - [facility] INR 1.1 0.8 - 1.2 [facility] - [facility] Specimen Anatomical Collection Method Collection Time Receive d Time (Source) Location / / Volume Laterality 08/20/2011 6:35 PM 2 6:35 PLANT CLERK PM PLANT CLERK Thelma Freitas M.D., Ph.D. LAB BLOOD ADD-ON Performing Organization Address City/[facility] Code Phon e Number [facility] LABORATORIES - [address] [place] [address] [facility] (ABNORMAL) Electrolyte (Chem 4) Panel (08/20/2011 6:35 PM PLANT CLERK) [facility] Method Time Signature Creatinine 1.3 0.8 - 1.3 [facility] MG/DL LABORATORIES - [facility] eGFR 57 (L) >60 [facility] Non-Black/Afric ML/MIN/BS LABORATORIES [facility] Chloride, S 99 (L) 100 - 108 [facility] MMOL/L LABORATORIES - [facility] BUN (Blood Urea 33 (H) 8 - 24 [facility] Nitrogen), S MG/DL LABORATORIES - [facility] Sodium, P 132 (L) 135 - 145 [facility] MMOL/L LABORATORIES - [facility] Potassium, P 4.3 3.6 - 5.2 [facility] MMOL/L [facility] - [facility] HX Bicarbonate, 20 (L) 22 - 29 [facility] P/S MMOL/L LABORATORIES - [facility] Glucose, S 134 70 - 140 [facility] MG/DL [facility] - [facility] eGFR-Black/Afri >60 >60 [facility] can Wallisian ML/MIN/BS LABORATORIES - [facility] Specimen Anatomical Collection Method Collection Time Receive d Time (Source) Location / / Volume Laterality 08/20/2011 6:35 PM 2 6:35 PLANT CLERK PM PLANT CLERK Thelma Freitas M.D., Ph.D. LAB BLOOD ADD-ON Performing Organization Address City/[facility] Phon e Number [facility] LABORATORIES - [address] [place] [address] [facility] Alkaline Phosphatase (08/20/2011 6:35 PM PLANT CLERK) athologist Signature Alkaline 80 45 - 115 [facility] Phosphatase, S U/L LABORATORIES - [facility] Specimen Anatomical Collection Method Collection Time Receive d Time (Source) Location / / Volume Laterality 08/20/2011 6:35 PM 2 6:35 PLANT CLERK PM PLANT CLERK Thelma Freitas M.D., Ph.D. LAB BLOOD ADD-ON Performing Organization Address City/[facility]/ZIP Code Phon e Number [facility] LAB[facility]IES - [address] [place] [address] [facility] AST (Aspartate Aminotransferase) (08/20/2011 6:35 PM PLANT CLERK) [facility] gist Method Time Signature Aspartate 28 8 - 48 [facility] Aminotransferase U/L LABORATORIES - (AST), P [facility] Specimen Anatomical Collection Method Collection Time Receive d Time (Source) Location / / Volume Laterality 08/20/2011 6:35 PM 2 6:35 PLANT CLERK PM PLANT CLERK Thelma Freitas M.D., Ph.D. LAB BLOOD ADD-ON Performing Organization Address City/[facility]/ZIP Code Phon e Number [facility] LABORATORIES - [address] [place] [address] [facility] (ABNORMAL) Bilirubin, Total (08/20/2011 6:35 PM PLANT CLERK) [facility] Cardiovascular [employer] Method Time Signature Bilirubin, 1.1 (H) 0.1 - 1.0 [facility] Total, P MG/DL LABORATORIES - [facility] Specimen Anatomical Collection Method Collection Time Receive d Time (Source) Location / / Volume Laterality 08/20/2011 6:35 PM 2 6:35 PLANT CLERK PM PLANT CLERK Thelma Freitas M.D., Ph.D. LAB BLOOD ADD-ON Performing Organization Address City/[facility]/ZIP Code Phon e Number [facility] LAB[facility]ATORIES - [address] [place] [address] [facility] Interpretation of Outside DX Abdomen (08/20/2011 6:35 PM PLANT CLERK) Anatomical Region Laterality Modality N/A Radiographic Imaging Specimen (Source) Anatomical Collection Method Collection Time Re ceived Time Location / / Volume Laterality 08/20/2011 6:35 PM PLANT CLERK Narrative 08/20/2011 7:03 PM PLANT CLERK 20-Aug-2011 18:35:00 ??Exam: Interp of OS XR [...] (08-20-11) Electronically signed by: Char Hernández MD. [id number] 20-Aug-2011 19:03 Thelma Freitas M.D., Ph.D. IMG DIAGNOSTIC IMAGING CT OCEDURES Interpretation of Outside CT Abdomen and or Pelvis (08/20/2011 6:33 PM PLANT CLERK) Anatomical Region Laterality Modality Abdomen, Pelvis N/A Computed Tomography Specimen (Source) Anatomical Collection Method Collection Time Re ceived Time Location / / Volume Laterality 08/20/2011 6:33 PM PLANT CLERK Narrative 08/20/2011 7:03 PM PLANT CLERK 20-Aug-2011 18:33:00 ??Exam: Interp of OS CT [...] (08-20-11) Electronically signed by: Char Hernández MD. [id number] 20-Aug-2011 19:03 Thelma Freitas M.D., Ph.D. IMG CT PROCEDURES (ABNORMAL) Glucose, POCT (08/20/2011 6:32 PM PLANT CLERK) [facility] Method Time Signature Glucose, POCT, 149 (H) 70 - 140 [facility] B MG/DL LABORATORIES - [facility] Sample Site, [place] [facility] Blood Gas, LABORATORIES - POCT [facility] Specimen Anatomical Collection Method Collection Time Receive d Time (Source) Location / / Volume Laterality 08/20/2011 6:32 PM 2 6:32 PLANT CLERK PM PLANT CLERK Historical Provider LAB POCT ORDERABLES-MANUAL Performing Organization Address City/[facility] Phon e Number [facility] LABORATORIES - [address] Lactate, POCT (08/20/2011 6:32 PM PLANT CLERK) [facility] Method Time Signature Lactate, POCT 1.60 0.60 - [facility] 2.30 LABORATORIES - MMOL/L [facility] Sample Site, Ven[place] [facility] POCT LABORATORIES - [facility] Specimen Anatomical Collection Method Collection Time Receive d Time (Source) Location / / Volume Laterality 08/20/2011 6:32 PM 2 6:32 PLANT CLERK PM PLANT CLERK Historical Provider LAB POCT ORDERABLES - DEVICE Performing Organization Address City/[facility] Phon e Number [facility] LABORATORIES - [address] [place] [phone] [facility] documented in this encounter Visit Diagnoses Not on filedocumented in this encounter
--- OUTSIDE RECORDS SUMMARY | 2022-05-17 19:17 | XMS_ITS | Encounter Summary ---
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 [address] [place] [phone] 05/23/2022 Clinical Admitting/Central Communication Scheduling 05/27/2022 Comprehensive Visit Orthopedic Surgery Markus Sams M.D., Ph.D. [address] [place] [phone] 05/29/2022 Office Visit Otorhinolaryngology Dex Matta APRN, C.N.P., M.S.N. [address] [place] [phone] 05/29/2022 Office Visit Otorhinolaryngology Nadeem Maradiaga, PMaryanne., M.S. [address] [place] [phone] 05/31/2022 Appointment Radiology Guilherme Matt, RASTA, PMaryanne., M.S. [address] [place] [phone] 06/05/2022 Appointment Laboratory Medicine Angélica Granger P.A.-C. [address] [place] [phone] 06/19/2022 Appointment Laboratory Medicine Angélica Granger P.A.-C. [address] [place] [phone] 07/03/2022 Appointment Laboratory Medicine Angélica Granger P.A.-C. [address] [place] [phone] 07/17/2022 Appointment Laboratory Medicine Angélica Granger P.A.-C. [address] [place] [phone] 07/31/2022 Appointment Laboratory Medicine Angélica Granger P.A.-C. [address] [place] [phone] 08/14/2022 Appointment Laboratory Medicine Angélica Granger P.A.-C. [address] [place] [phone] 08/28/2022 Appointment Laboratory Medicine Angélica Granger P.A.-C. [address] [place] [phone] documented as of this encounter Visit Diagnoses Not on filedocumented in this encounter
--- OUTSIDE RECORDS SUMMARY | 2022-05-17 19:17 | XMS_ITS | Encounter Summary ---
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 [address] [place] [phone] 05/23/2022 Clinical Admitting/Central Communication Scheduling 05/27/2022 Comprehensive Visit Orthopedic Surgery Markus Sams M.D., Ph.D. [address] [place] [phone] 05/29/2022 Office Visit Otorhinolaryngology Dex Matta APRN, C.N.P., M.S.N. [address] [place] [phone] 05/29/2022 Office Visit Otorhinolaryngology Nadeem Maradiaga, PMaryanne., M.S. [address] [place] [phone] 05/31/2022 Appointment Radiology Guilherme Matt, RASTA, PMaryanne., M.S. [address] [place] [phone] 06/05/2022 Appointment Laboratory Medicine Angélica Granger P.A.-C. [address] [place] [phone] 06/19/2022 Appointment Laboratory Medicine Angélica Granger P.A.-C. [address] [place] [phone] 07/03/2022 Appointment Laboratory Medicine Angélica Granger P.A.-C. [address] [place] [phone] 07/17/2022 Appointment Laboratory Medicine Angélica Granger P.A.-C. [address] [place] [phone] 07/31/2022 Appointment Laboratory Medicine Angélica Granger P.A.-C. [address] [place] [phone] 08/14/2022 Appointment Laboratory Medicine Angélica Granger P.A.-C. [address] [place] [phone] 08/28/2022 Appointment Laboratory Medicine Angélica Granger P.A.-C. [address] [place] [phone] documented as of this encounter Visit Diagnoses Not on filedocumented in this encounter
--- OUTSIDE RECORDS SUMMARY | 2022-05-17 19:17 | XMS_ITS | Encounter Summary ---
:1955 Author Organization [facility] Address [address] [place] [address] Care Team Providers Name Role Phone Unavailable [...] at Date Recorded Male 05/16/2020 4:27 PM MIDDLEWARE 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 documented as of this encounter Last Filed Vital Signs Vital Sign Reading Time Taken Comments Blood Pressure 122/62 08/22/2011 8:09 AM NIBP - Value from [facility]. Pulse 59 08/22/2011 8:09 AM Value from [employer]. MIDDLEWARE 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 Temperature - - Respiratory Rate 18 08/22/2011 5:55 AM Value from C [facility]art[facility]. MIDDLEWARE 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 Oxygen Saturation - - Inhaled Oxygen - - Concentration Weight 90.4 kg (199 lb 4.7 08/22/2011 6:03 AM oz) MIDDLEWARE 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 Height 177 cm (5' 9.69) 08/20/2011 10:22 PM MIDDLEWARE 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 Body Mass Index 28.86 08/20/2011 10:22 PM MIDDLEWARE 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 documented in this encounter Plan of Treatment Upcoming Encounters Date Type Specialty Care Team Description 05/22/2022 Appointment Laboratory Medicine Angélica Granger P.A.-C. [address] [place] [address] [phone] 05/23/2022 Clinical Admitting/Central Communication Scheduling 05/27/2022 Comprehensive Visit Orthopedic Surgery Markus Sams M.D., Ph.D. [address] [place] [address] [phone] 05/29/2022 Office Visit Otorhinolaryngology Dex Matta, HAND BOOKBINDER, C.N.P., M.S.N. [address] [place] [address] [phone] 05/29/2022 Office Visit Otorhinolaryngology Nadeem Maradiaga, P.Murtaza.-Arley., M.S. [address] [place] [phone] 05/31/2022 Appointment Radiology Guilherme Matt MPAS, Jennifer., M.S. [address] [place] [phone] 06/05/2022 Appointment Laboratory Medicine Angélica Granger P.A.-C. [address] [place] [phone] 06/19/2022 Appointment Laboratory Medicine Angélica Granger P.A.-C. [address] [place] [phone] 07/03/2022 Appointment Laboratory Medicine Angélica Granger P.A.-C. [address] [place] [phone] 07/17/2022 Appointment Laboratory Medicine Angélica Granger P.A.-C. [address] [place] [phone] 07/31/2022 Appointment Laboratory Medicine Angélica Granger P.A.-C. [address] [place] [phone] 08/14/2022 Appointment Laboratory Medicine Angélica Granger P.A.-C. [address] [place] [phone] 08/28/2022 Appointment Laboratory Medicine Angélica Granger P.A.-C. [address] [place] [phone] documented as of this encounter Procedures Procedure Name Priority Date/Time Associated Comments Diagnosis ELECTROLYTE (CHEM 4) Routine 08/22/2011 5:16 Resu lts for this PANEL, S/P AM MIDDLEWARE 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 procedure are i n the results section. TACROLIMUS LEVEL, B Routine 08/22/2011 5:16 Resul ts for this AM MIDDLEWARE 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 procedure are i n the results section. CBC WITH DIFFERENTIAL, B Routine 08/22/2011 5:16 Results for this AM MIDDLEWARE 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 procedure are i n the results section. ALANINE AMINOTRANSFERASE Routine 08/22/2011 5:16 Results for this (ALT), S/P AM MIDDLEWARE 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 procedure are i n the results section. ASPARTATE Routine 08/22/2011 5:16 Results for this AMINOTRANSFERASE (AST), AM MIDDLEWARE 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 proc edure are in S/P the results section. ALKALINE PHOSPHATASE, Routine 08/22/2011 5:16 Res ults for this S/P AM MIDDLEWARE 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 procedure are i n the results section. BILIRUBIN DIRECT, S/P Routine 08/22/2011 5:16 Res ults for this AM MIDDLEWARE 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 procedure are i n the results section. BILIRUBIN, TOT, S/P Routine 08/22/2011 5:16 Resul ts for this AM MIDDLEWARE 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 procedure are i n the results section. US ABDOMEN LIMITED PLUS Routine 08/21/2011 10:56 Results for this ABDOMEN DOPPLER AM MIDDLEWARE 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 procedure ar e in the results section. D-DIMER, P Routine 08/21/2011 7:21 Results for this AM MIDDLEWARE 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 procedure are i n the results section. CYTOMEGALOVIRUS PCR Routine 08/21/2011 7:21 Resul ts for this AM MIDDLEWARE 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 procedure are i n the results section. THYROID FUNCTION Routine 08/21/2011 7:21 Results for this CASCADE, S AM MIDDLEWARE 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 procedure are i n the results section. MAGNESIUM, S Routine 08/21/2011 7:21 Results for this AM MIDDLEWARE 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 procedure are i n the results section. LIPASE, S/P Routine 08/21/2011 7:21 Results for this AM MIDDLEWARE 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 procedure are i n the results section. LACTATE DEHYDROGENASE Routine 08/21/2011 7:21 Res ults for this (LD), S AM MIDDLEWARE 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 procedure are i n the results section. CALCIUM, TOT, S/P Routine 08/21/2011 7:21 Results for this AM MIDDLEWARE 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 procedure are i n the results section. ELECTROLYTE (CHEM 4) Routine 08/21/2011 5:07 Resu lts for this PANEL, S/P AM MIDDLEWARE 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 procedure are i n the results section. TACROLIMUS LEVEL, B Routine 08/21/2011 5:07 Resul ts for this AM MIDDLEWARE 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 procedure are i n the results section. PROTHROMBIN TIME (PT), P Routine 08/21/2011 5:07 Results for this AM MIDDLEWARE 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 procedure are i n the results section. CBC WITH DIFFERENTIAL, B Routine 08/21/2011 5:07 Results for this AM MIDDLEWARE 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 procedure are i n the results section. C-REACTIVE PROTEIN Routine 08/21/2011 5:07 Result s for this (CRP), S/P AM MIDDLEWARE 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 procedure are i n the results section. ALANINE AMINOTRANSFERASE Routine 08/21/2011 5:07 Results for this (ALT), S/P AM MIDDLEWARE 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 procedure are i n the results section. ASPARTATE Routine 08/21/2011 5:07 Results for this AMINOTRANSFERASE (AST), AM MIDDLEWARE 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 proc edure are in S/P the results section. ALKALINE PHOSPHATASE, Routine 08/21/2011 5:07 Res ults for this S/P AM MIDDLEWARE 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 procedure are i n the results section. BILIRUBIN DIRECT, S/P Routine 08/21/2011 5:07 Res ults for this AM MIDDLEWARE 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 procedure are i n the results section. BILIRUBIN, TOT, S/P Routine 08/21/2011 5:07 Resul ts for this AM MIDDLEWARE 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 procedure are i n the results section. US ABDOMEN COMPLETE WITH Routine 08/20/2011 9:07 Results for this LIVER DOPPLER PM MIDDLEWARE 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 procedure are in the results section. documented in this encounter Results (ABNORMAL) Electrolyte (Chem 4) Panel (08/22/2011 5:16 AM MIDDLEWARE 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) [facility] gist Method Time Signature Sodium, S 134 (L) 135 - 145 [facility] MMOL/L [facility] Potassium, S 4.3 3.6 - 5.2 [facility] MMOL/L LABORATORIES [facility] eGFR-Black/Afri >60 >60 [facility] can [place] ML/MIN/BS LABORATORIES - A [facility] BUN (Blood Urea 31 (H) 8 - 24 [facility] Nitrogen), S MG/DL [facility] Chloride, S 101 100 - 108 [facility] MMOL/L [facility] HX Bicarbonate, 22 22 - 29 [facility] P/S MMOL/L [facility] Creatinine 1.3 0.8 - 1.3 [facility] MG/DL [facility] eGFR 57 (L) >60 [facility] Non-Black/Afric ML/MIN/BS LABORATORIES - an Mozambican A [facility] Anion Gap 11 7 - 15 [facility] Glucose, S 134 70 - 140 [facility] MG/DL [facility] Specimen Anatomical Collection Method Collection Time Receive d Time (Source) Location / / Volume Laterality 08/22/2011 5:16 AM 2 5:16 MIDDLEWARE 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 AM MIDDLEWARE 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 Leonid Gonzalez M.D. LAB BLOOD ADD-ON Performing Organization Address City/State/ZIP Code Phon e Number [facility] LABORATORIES - [address] [place] [address] [facility] (ABNORMAL) CBC with Differential (08/22/2011 5:16 AM MIDDLEWARE 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) Patholo gist Method Time Signature Hemoglobin 10.8 (L) 13.5 - [facility] 17.5 G/DL LABORATORIES - [facility] Hematocrit 32.0 (L) 38.8 - [facility] 50.0 % LABORATORIES - [facility] RBC Distrib 12.4 11.8 - [facility] Width 15.6 % LABORATORIES - [facility] Platelet Count 191 150 - 450 [facility] X10(9)/L LABORATORIES - [facility] Lymphocytes 2.02 0.90 - [facility] 2.90 LABORATORIES - X10(9)/L [facility] Monocytes 1.31 (H) 0.30 - [facility] 0.90 LABORATORIES - X10(9)/L [facility] Erythrocytes 3.54 (L) 4.32 - [facility] 5.72 LABORATORIES - X10(12)/L [facility] MCV 90.4 81.2 - [facility] 95.1 FL LABORATORIES - [facility] Leukocytes 11.8 (H) 3.5 - [facility] 10.5 LABORATORIES - X10(9)/L [facility] Neutrophils 8.10 (H) 1.70 - [facility] 7.00 LABORATORIES - X10(9)/L [facility] Eosinophils 0.34 0.05 - [facility] 0.50 LABORATORIES - X10(9)/L [facility] Basophils 0.02 0.00 - [facility] 0.30 LABORATORIES - X10(9)/L [facility] Specimen Anatomical Collection Method Collection Time Receive d Time (Source) Location / / Volume Laterality 08/22/2011 5:16 AM 2 5:16 MIDDLEWARE 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 AM MIDDLEWARE 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 Leonid Gonzalez M.D. LAB BLOOD ADD-ON Performing Organization Address City/State/ZIP Code Phon e Number [facility] LABORATORIES - [address] [place], [place] [address] [facility] Bilirubin, Total (08/22/2011 5:16 AM MIDDLEWARE 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) P athologist Signature Bilirubin, 0.6 0.1 - 1.0 [facility] Total, S MG/DL [facility] Specimen Anatomical Collection Method Collection Time Receive d Time (Source) Location / / Volume Laterality 08/22/2011 5:16 AM 2 5:16 MIDDLEWARE 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 AM MIDDLEWARE 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 Leonid Gonzalez M.D. LAB BLOOD ADD-ON Performing Organization Address City/[facility] Phon e Number [facility] LABORATORIES - [address] [place] [address] [facility] Alkaline Phosphatase (08/22/2011 5:16 AM MIDDLEWARE 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) P athologist Signature Alkaline 95 45 - 115 [facility] Phosphatase, S U/L [facility] Specimen Anatomical Collection Method Collection Time Receive d Time (Source) Location / / Volume Laterality 08/22/2011 5:16 AM 2 5:16 MIDDLEWARE 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 AM MIDDLEWARE 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 Leonid Gonzalez M.D. LAB BLOOD ADD-ON Performing Organization Address City/[facility] Phon e Number [facility] - [address] [place] [address] [facility] AST (Aspartate Aminotransferase) (08/22/2011 5:16 AM MIDDLEWARE 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) P athologist Signature AST, Total, S 46 8 - 48 U/L [facility] Specimen Anatomical Collection Method Collection Time Receive d Time (Source) Location / / Volume Laterality 08/22/2011 5:16 AM 2 5:16 MIDDLEWARE 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 AM MIDDLEWARE 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 Leonid Gonzalez M.D. LAB BLOOD ADD-ON Performing Organization Address City/[facility] Phon e Number [facility] - [address] [place] [address] [facility] Tacrolimus Level (08/22/2011 5:16 AM MIDDLEWARE 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) Analysis Performed At Patho logist Time Signature Tacrolimus Time . [facility] of Last Dose [facility] Comment: Not Specified Tacrolimus Blood Dose, mg . [facility] Comment: Not Specified Tacrolimus, B 5.2 5.0-15.0 (Trough) NG/ML [facility] Tacrolimus Blood Date of . [facility] Last Dose [facility] Comment: Not Specified Specimen Anatomical Collection Method Collection Time Receive d Time (Source) Location / / Volume Laterality 08/22/2011 5:16 AM 2 5:16 MIDDLEWARE 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 AM MIDDLEWARE 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 Leonid Gonzalez M.D. LAB BLOOD NON ADD-ON Performing Organization Address City/[facility]/ZIP Code Phon e Number [facility] LABORATORIES - [address] [place] [address] [facility] ALT (Alanine Aminotransferase) (08/22/2011 5:16 AM MIDDLEWARE 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) Patholo gist Method Time Signature Alanine 46 7 - 55 [facility] Aminotransferase U/L LABORATORIES - (ALT), S [facility] Specimen Anatomical Collection Method Collection Time Receive d Time (Source) Location / / Volume Laterality 08/22/2011 5:16 AM 2 5:16 MIDDLEWARE 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 AM MIDDLEWARE 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 Leonid Gonzalez M.D. LAB BLOOD ADD-ON Performing Organization Address City/[facility]/ZIP Code Phon e Number [facility] LABORATORIES - [address] [place] [address] [facility] Bilirubin, Direct (08/22/2011 5:16 AM MIDDLEWARE 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) P athologist Signature Bilirubin, 0.2 0.0 - 0.3 [facility] Direct, S MG/DL LABORATORIES - [facility] Specimen Anatomical Collection Method Collection Time Receive d Time (Source) Location / / Volume Laterality 08/22/2011 5:16 AM 2 5:16 MIDDLEWARE 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 AM MIDDLEWARE 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 Leonid Gonzalez M.D. LAB BLOOD ADD-ON Performing Organization Address City/[facility]/ZIP [facility] Phon e Number [facility] LABORATORIES - [address] US Abdomen Limited plus Abdomen Doppler (08/21/2011 10:56 AM MIDDLEWARE 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) Anatomical Region Laterality Modality Abdomen N/A Ultrasound Specimen (Source) Anatomical Collection Method Collection Time Re ceived Time Location / / Volume Laterality 08/21/2011 10:56 AM MIDDLEWARE 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 Narrative 08/21/2011 11:20 AM MIDDLEWARE 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 21-Aug-2011 10:56:00 ??Exam: US Abd Lmtd with Doppler Cmpl Indications: [id number]; [id number]; liver t x; abnl ultrasound with doppler [...] Electronically signed by: ?? Char Thompson MD. ??[id number] 21-Aug-2011 11:20 Procedure Note Alan Thompson M.B., Sada Del Rosario - 09/20 21-Aug-2011 10:56:00 Exam: US Abd Lmtd w ith Doppler [facility] Indications: [id number]; [id number]; liver t x; abnl ultrasound with doppler [...] negative. Electronically signed by: Char Thompson MD. [id number] 21-Aug-2011 11:20 Tiffanie Wan M.D. [facility] US PROCEDURES Cytomegalovirus PCR (08/21/2011 7:21 AM MIDDLEWARE 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) [facility] Method Time Signature Cytomegalovirus None None [facility] PCR, Quant, P detected LABORATORIES [facility] Comment: Analyte Specific Reagent. This test was developed and its performance ? characteristics determined by [facility] It has not been cleared or ? approved by the U.S. Food and Drug Admin istration. ? Specimen Anatomical Collection Method Collection Time Receive d Time (Source) Location / / Volume Laterality 08/21/2011 7:21 AM 2 7:21 MIDDLEWARE 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 AM MIDDLEWARE 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 Leonid Gonzalez M.D. LAB MICROBIOLOGY - GENERAL O RDERABLES Performing Organization Address City/[facility] Phon e Number [facility] LABORATORIES - [address] [place] [address] [address] [facility] Magnesium (08/21/2011 7:21 AM MIDDLEWARE 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) athologist Signature Magnesium, S 2.0 1.7 - 2.3 [facility] MG/DL [facility] Specimen Anatomical Collection Method Collection Time Receive d Time (Source) Location / / Volume Laterality 08/21/2011 7:21 AM 2 7:21 MIDDLEWARE 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 AM MIDDLEWARE 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 Leonid Gonzalez M.D. LAB BLOOD ADD-ON Performing Organization Address [facility] Phon e Number [facility] LABORATORIES - [address] [place] [address] [address] [facility] Thyroid Function [place] (08/21/2011 7:21 AM MIDDLEWARE 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) athologist Signature TSH, Sensitive 3.2 0.3 - 5.0 [facility] MIU/L [facility] Specimen Anatomical Collection Method Collection Time Receive d Time (Source) Location / / Volume Laterality 08/21/2011 7:21 AM 2 7:21 MIDDLEWARE 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 AM MIDDLEWARE 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 Leonid Gonzalez M.D. LAB BLOOD ADD-ON Performing Organization Address City/State/ZIP Code Phon e Number [facility] LABORATORIES - [address] [place] [address] [address] [facility] (ABNORMAL) Lipase (08/21/2011 7:21 AM MIDDLEWARE 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) P athologist Signature Lipase, S <10 (L) 10 - 73 [facility] U/L LABORATORIES [facility] Specimen Anatomical Collection Method Collection Time Receive d Time (Source) Location / / Volume Laterality 08/21/2011 7:21 AM 2 7:21 MIDDLEWARE 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 AM MIDDLEWARE 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 Leonid Gonzalez M.D. LAB BLOOD ADD-ON Performing Organization Address City/[facility]/ZIP Code Phon e Number [facility] LABORATORIES - [address] [place] [address] [address] [facility] D-Dimer, Plasma (08/21/2011 7:21 AM MIDDLEWARE 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) Patholo gist Method Time Signature Fibrinogen 0.24 <=0.50 MCG [facility] Equivalent FEU/ML LABORATORIES - Units (FEU) [facility] D-Dimer, P 120 SeeComment [facility] NG/ML LABORATORIES - [facility] Comment: Reference Range: ? <=250 ? The stated reference value is ? the cutoff to use D-Dimer for ? exclusion of deep vein ? thrombosis and/or pulmonary ? embolism. ? Specimen Anatomical Collection Method Collection Time Receive d Time (Source) Location / / Volume Laterality 08/21/2011 7:21 AM 2 7:21 MIDDLEWARE 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 AM MIDDLEWARE 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 Leonid Gonzalez M.D. LAB BLOOD NON ADD-ON Performing Organization Address City/[facility]/ZIP [facility] Phon e Number [facility] LABORATORIES - [address] [place] [address] [address] [facility] LD (Lactate Dehydrogenase) (08/21/2011 7:21 AM MIDDLEWARE 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) Patholo gist Method Time Signature Lactate 131 122 - 222 [facility] Dehydrogenase U/L LABORATORIES - (LD), S [facility] Specimen Anatomical Collection Method Collection Time Receive d Time (Source) Location / / Volume Laterality 08/21/2011 7:21 AM 2 7:21 MIDDLEWARE 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 AM MIDDLEWARE 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 Leonid Gonzalez M.D. LAB BLOOD NON ADD-ON Performing Organization Address City/[facility] Code Phon e Number [facility] LABORATORIES - [address] [place] [address] [address] [facility] Calcium, Total (08/21/2011 7:21 AM MIDDLEWARE 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) P athologist Signature Calcium, 9.0 8.9 - 10.1 [facility] Total, S MG/DL LABORATORIES - [facility] Specimen Anatomical Collection Method Collection Time Receive d Time (Source) Location / / Volume Laterality 08/21/2011 7:21 AM 2 7:21 MIDDLEWARE 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 AM MIDDLEWARE 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 Leonid Gonzalez M.D. LAB BLOOD ADD-ON Performing Organization Address City/State/ZIP Code Phon e Number [facility] LABORATORIES - [address] [place], [place] [address] [facility] Bilirubin, Direct (08/21/2011 5:07 AM MIDDLEWARE 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) P athologist Signature Bilirubin, 0.3 0.0 - 0.3 [facility] Direct, S MG/DL LABORATORIES - [facility] Specimen Anatomical Collection Method Collection Time Receive d Time (Source) Location / / Volume Laterality 08/21/2011 5:07 AM 2 5:07 MIDDLEWARE 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 AM MIDDLEWARE 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 Leonid Gonzalez M.D. LAB BLOOD ADD-ON Performing Organization Address City/[facility] Phon e Number [facility] LABORATORIES - [address] [place], [place] [address] [facility] (ABNORMAL) Tacrolimus Level (08/21/2011 5:07 AM MIDDLEWARE 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) [facility] gist Method Time Signature Tacrolimus, B 4.9 (L) 5.0-15.0 [facility] (Trough) LABORATORIES - NG/ML [facility] Tacrolimus . [facility] Blood Date of LABORATORIES - Last Dose [facility] Comment: Not Specified Tacrolimus Time of Last Dose . M [facility] LABORATORIES - [facility] Comment: Not Specified Tacrolimus Blood Dose, mg . [facility] LABORATORIES - [facility] Comment: Not Specified Specimen Anatomical Collection Method Collection Time Receive d Time (Source) Location / / Volume Laterality 08/21/2011 5:07 AM 2 5:07 MIDDLEWARE 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 AM MIDDLEWARE 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 Leonid Gonzalez M.D. LAB BLOOD NON ADD-ON Performing Organization Address City/[facility]/ZIP Code Phon e Number [facility] LABORATORIES - [address] [place], [place] [address] [facility] (ABNORMAL) Electrolyte (Chem 4) Panel (08/21/2011 5:07 AM MIDDLEWARE 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) [facility] gist Method Time Signature Sodium, S 135 135 - 145 [facility] MMOL/L LABORATORIES - [facility] Potassium, S 4.3 3.6 - 5.2 [facility] MMOL/L LABORATORIES - [facility] Creatinine 1.4 (H) 0.8 - 1.3 [facility] MG/DL LABORATORIES - [facility] eGFR 52 (L) >60 [facility] Non-Black/Afric ML/MIN/BS LABORATORIES - an [place] A [facility] Anion Gap 11 7 - 15 [facility] LABORATORIES - [facility] Glucose, S 131 70 - 140 [facility] MG/DL LABORATORIES - [facility] Chloride, S 101 100 - 108 [facility] MMOL/L LABORATORIES - [facility] HX Bicarbonate, 23 22 - 29 [facility] P/S MMOL/L LABORATORIES - [facility] eGFR-Black/Afri >60 >60 [facility] can [place] ML/MIN/BS LABORATORIES - A [facility] BUN (Blood Urea 36 (H) 8 - 24 [facility] Nitrogen), S MG/DL LABORATORIES - [facility] Specimen Anatomical Collection Method Collection Time Receive d Time (Source) Location / / Volume Laterality 08/21/2011 5:07 AM 2 5:07 MIDDLEWARE 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 AM MIDDLEWARE 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 Leonid Gonzalez M.D. LAB BLOOD ADD-ON Performing Organization Address City/[facility]/ZIP Code Phon e Number [facility] LABORATORIES - [address] [place] [address] [address] [facility] Bilirubin, Total (08/21/2011 5:07 AM MIDDLEWARE 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) P athologist Signature Bilirubin, 0.9 0.1 - 1.0 [facility] Total, S MG/DL LABORATORIES - [facility] Specimen Anatomical Collection Method Collection Time Receive d Time (Source) Location / / Volume Laterality 08/21/2011 5:07 AM 2 5:07 MIDDLEWARE 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 AM MIDDLEWARE 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 Leonid Gonzalez M.D. LAB BLOOD ADD-ON Performing Organization Address City/[facility]/ZIP Code Phon e Number [facility] LABORATORIES - [address] [place] [address] [address] [facility] PT (Prothrombin Time) with INR (08/21/2011 5:07 AM MIDDLEWARE 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) Patholo gist Method Time Signature Prothrombin 13.5 9.5 - 13.8 [facility] Time, P SEC LABORATORIES - [facility] INR 1.1 0.8 - 1.2 [facility] LABORATORIES - [facility] Specimen Anatomical Collection Method Collection Time Receive d Time (Source) Location / / Volume Laterality 08/21/2011 5:07 AM 2 5:07 MIDDLEWARE 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 AM MIDDLEWARE 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 Leonid Gonzalez M.D. LAB BLOOD ADD-ON Performing Organization Address City/State/ZIP Code Phon e Number [facility] LABORATORIES - [address] [facility] (ABNORMAL) CBC with Differential (08/21/2011 5:07 AM MIDDLEWARE 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) [facility] Method Time Signature Erythrocytes 3.82 (L) 4.32 - [facility] 5.72 LABORATORIES - X10(12)/L [facility] MCV 92.4 81.2 - [facility] 95.1 [place] LABORATORIES - [facility] RBC Distrib 12.6 11.8 - [facility] Width 15.6 % LABORATORIES - [facility] Platelet Count 184 150 - 450 [facility] X10(9)/L LABORATORIES - [facility] Lymphocytes 2.08 0.90 - [facility] 2.90 LABORATORIES - X10(9)/L [facility] Monocytes 1.26 (H) 0.30 - [facility] 0.90 LABORATORIES - X10(9)/L [facility] Hemoglobin 11.7 (L) 13.5 - [facility] 17.5 G/DL LABORATORIES - [facility] Hematocrit 35.3 (L) 38.8 - [facility] 50.0 % LABORATORIES - [facility] Leukocytes 11.1 (H) 3.5 - [facility] 10.5 LABORATORIES - X10(9)/L [facility] Neutrophils 7.48 (H) 1.70 - [facility] 7.00 LABORATORIES - X10(9)/L [facility] Eosinophils 0.29 0.05 - [facility] 0.50 LABORATORIES - X10(9)/L [facility] Basophils 0.01 0.00 - [facility] 0.30 LABORATORIES - X10(9)/L [facility] Specimen Anatomical Collection Method Collection Time Receive d Time (Source) Location / / Volume Laterality 08/21/2011 5:07 AM 2 5:07 MIDDLEWARE 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 AM MIDDLEWARE 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 Leonid Gonzalez M.D. LAB BLOOD ADD-ON Performing Organization Address City/State/ZIP Code Phon e Number [facility] - [address] [place], [place] [address] [facility] (ABNORMAL) CRP (C-Reactive Protein) (08/21/2011 5:07 AM MIDDLEWARE 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) [facility] Method Time Signature C-Reactive 155.2 (H) <=8.0 [facility] Protein (CRP), MG/L LABORATORIES - S [facility] Specimen Anatomical Collection Method Collection Time Receive d Time (Source) Location / / Volume Laterality 08/21/2011 5:07 AM 2 5:07 MIDDLEWARE 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 AM MIDDLEWARE 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 Leonid Gonzalez M.D. LAB BLOOD ADD-ON Performing Organization Address City/[facility]/ZIP Code Phon e Number [facility] - [address] AST (Aspartate Aminotransferase) (08/21/2011 5:07 AM MIDDLEWARE 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) P athologist Signature AST, Total, S 27 8 - 48 U/L [facility] Specimen Anatomical Collection Method Collection Time Receive d Time (Source) Location / / Volume Laterality 08/21/2011 5:07 AM 2 5:07 MIDDLEWARE 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 AM MIDDLEWARE 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 Leonid Gonzalez M.D. LAB BLOOD ADD-ON Performing Organization Address City/[facility]/ZIP Code Phon e Number [facility] - [address] Alkaline Phosphatase (08/21/2011 5:07 AM MIDDLEWARE 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) P athologist Signature Alkaline 77 45 - 115 [facility] Phosphatase, S U/L LABORATORIES [facility] Specimen Anatomical Collection Method Collection Time Receive d Time (Source) Location / / Volume Laterality 08/21/2011 5:07 AM 2 5:07 MIDDLEWARE 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 AM MIDDLEWARE 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 Leonid Gonzalez M.D. LAB BLOOD ADD-ON Performing Organization Address City/[facility]/ZIP Code Phon e Number [facility] - [address] ALT (Alanine Aminotransferase) (08/21/2011 5:07 AM MIDDLEWARE 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) Patholo gist Method Time Signature Alanine 24 7 - 55 [facility] Aminotransferase U/L LABORATORIES - (ALT), S [facility] Specimen Anatomical Collection Method Collection Time Receive d Time (Source) Location / / Volume Laterality 08/21/2011 5:07 AM 2 5:07 MIDDLEWARE 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 AM MIDDLEWARE 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 Leonid Gonzalez M.D. LAB BLOOD ADD-ON Performing Organization Address City/[facility] Code Phon e Number [facility] - [address] [facility] US Abdomen and Abdomen Doppler (08/20/2011 9:07 PM MIDDLEWARE 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) Anatomical Region Laterality Modality Abdomen N/A Ultrasound Specimen (Source) Anatomical Collection Method Collection Time Re ceived Time Location / / Volume Laterality 08/20/2011 9:07 PM MIDDLEWARE 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 Narrative 08/21/2011 9:04 AM MIDDLEWARE 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 20-Aug-2011 21:07:00 ??Exam: US Abd Cmpl with Doppler Cmpl Indications: Liver Tx with Doppler; renata bedolla ORIGINAL REPORT - 20-Aug-2011 21:28:00 Ultrasound of [...] Spleen:................Normal. Right kidney:..........Normal. Measures 11.3 cm in qshr-ef-dite length. Left kidney:...........Normal. Measures 10.9 cm in wncb-un-szjs length. Aorta:.................Normal caliber. No ascites in the abdomen. Electronically signed by: ?? Rafiq PETTIT ??[id number] ??[id number] 20-Aug-19 12 21:28 I have reviewed [...] Spleen:................Normal. Right kidney:..........Normal. Measures 11.3 cm in zjrp-sd-bbcz length. Left kidney:...........Normal. Measures 10.9 cm in xeiz-tl-wcrq length. Aorta:.................Normal caliber. No ascites in the abdomen. Electronically signed by: Rafiq PETTIT [id number] 20-Aug-2011 2 1:28 I have reviewed the films/images and agr ee with the above interpretation. Electronically signed by: Christine Singh MD [id number] 21-Aug-2011 09:0 4 Thelma Freitas M.D., Ph.D. IMG US PROCEDURES documented in this encounter Visit Diagnoses Not on filedocumented in this encounter
--- OUTSIDE RECORDS SUMMARY | 2022-05-17 19:17 | XMS_ITS | Encounter Summary ---
:[address] [facility] Address [address] [place] [address] Care Team Providers Name Role Phone Elsewhere, Pcp Primary Care Provider Unavailable Encounter Details Date Type Department Care Team Description 08/20/2002 Abstract [facility] and Clinical CoordinatorZuleika 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 [address] [place] [phone] 05/23/2022 Clinical Admitting/Central Communication Scheduling 05/27/2022 Comprehensive Visit Orthopedic Surgery Markus Sams M.D., Ph.D. [address] [place] [phone] 05/29/2022 Office Visit Otorhinolaryngology Dex Matta APRN, C.N.P., M.S.N. [address] [place] [phone] 05/29/2022 Office Visit Otorhinolaryngology Nadeem Maradiaga, PEdgar.Marie., M.S. [address] [place] [phone] 05/31/2022 Appointment Radiology Guilherme Matt MPAS, PMaryanne., M.S. [address] [place] [phone] 06/05/2022 Appointment Laboratory Medicine Angélica Granger P.A.-C. [address] [place] [phone] 06/19/2022 Appointment Laboratory Medicine Angélica Granger P.A.-C. [address] [place] [phone] 07/03/2022 Appointment Laboratory Medicine Angélica Granger P.A.-C. [address] [place] [phone] 07/17/2022 Appointment Laboratory Medicine Angélica Granger P.A.-C. [address] [place] [phone] 07/31/2022 Appointment Laboratory Medicine Angélica Granger P.A.-C. [address] [place] [phone] 08/14/2022 Appointment Laboratory Medicine Angélica Granger P.A.-C. [address] [place] [phone] 08/28/2022 Appointment Laboratory Medicine Angélica Granger P.A.-C. [address] [place] [phone] documented as of this encounter Visit Diagnoses Not on filedocumented in this encounter Additional Health Concerns Infection Onset Date Last Indicated Resolved Time COVID19 Pending 12/13/2019 12/13/2019 12/14/2019 11:03 AM CDT COVID19 Pending 01/26/2020 01/27/2020 01/28/2020 12:12 AM CDT documented as of this encounter Care Teams Claim Professional Relationship Specialty Start Date End Date Elsewhere, Pcp PCP - General Family Medicine 07/29/17 [facility] - Laboratory Medicine 04/12/[address] [address] documented as of this encounter
--- OUTSIDE RECORDS SUMMARY | 2022-05-17 19:17 | XMS_ITS | Encounter Summary ---
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 [address] [place] [phone] 05/23/2022 Clinical Admitting/Central Communication Scheduling 05/27/2022 Comprehensive Visit Orthopedic Surgery Markus Sams M.D., Ph.D. [address] [place] [phone] 05/29/2022 Office Visit Otorhinolaryngology Dex Matta APRN, C.N.P., M.S.N. [address] [place] [phone] 05/29/2022 Office Visit Otorhinolaryngology Nadeem Maradiaga, PMaryanne., M.S. [address] [place] [phone] 05/31/2022 Appointment Radiology Guilherme Matt, RASTA, PMaryanne., M.S. [address] [place] [phone] 06/05/2022 Appointment Laboratory Medicine Angélica Granger P.A.-C. [address] [place] [phone] 06/19/2022 Appointment Laboratory Medicine Angélica Granger P.A.-C. [address] [place] [phone] 07/03/2022 Appointment Laboratory Medicine Angélica Granger P.A.-C. [address] [place] [phone] 07/17/2022 Appointment Laboratory Medicine Angélica Granger P.A.-C. [address] [place] [phone] 07/31/2022 Appointment Laboratory Medicine Angélica Granger P.A.-C. [address] [place] [phone] 08/14/2022 Appointment Laboratory Medicine Angélica Granger P.A.-C. [address] [place] [phone] 08/28/2022 Appointment Laboratory Medicine Angélica Granger P.A.-C. [address] [place] [phone] documented as of this encounter Procedures Procedure Name Priority Date/Time Associated Diagnosis Comme nts DX CHEST AP OR PA Routine 08/19/2002 11:58 AM Res ults for this AND LATERAL 2 VIEWS LEPIDOPTERIST procedur e are in the results section. documented in this encounter Results DX Chest AP or PA and Lateral 2 Views (08/19/2002 11:58 AM LEPIDOPTERIST) Anatomical Region Laterality Modality Chest N/A Radiographic Imaging Specimen (Source) Anatomical Collection Method Collection Time Re ceived Time Location / / Volume Laterality 08/19/2002 11:58 AM LEPIDOPTERIST Narrative 08/19/2002 12:37 PM LEPIDOPTERIST 19-Aug-2002 11:58:00 ??Exam: Chest-- 2 Views Indications: [...] 09-24-99. Electronically signed by: Clementina Schulte MD. [id number] 19-Aug-2002 12:37 [facility] DIAGNOSTIC IMAGING PROCE DURES documented in this encounter Visit Diagnoses Not on filedocumented in this encounter
--- OUTSIDE RECORDS SUMMARY | 2022-05-17 19:17 | XMS_ITS | Encounter Summary ---
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 [address] [place] [phone] 05/23/2022 Clinical Admitting/Central Communication Scheduling 05/27/2022 Comprehensive Visit Orthopedic Surgery Markus Sams M.D., Ph.D. [address] [place] [phone] 05/29/2022 Office Visit Otorhinolaryngology Dex Matta APRN, C.N.P., M.S.N. [address] [place] [phone] 05/29/2022 Office Visit Otorhinolaryngology Nadeem Maradiaga, PMaryanne., M.S. [address] [place] [phone] 05/31/2022 Appointment Radiology Guilherme Matt, RASTA, PMaryanne., M.S. [address] [place] [phone] 06/05/2022 Appointment Laboratory Medicine Angéilca Granger P.A.-C. [address] [place] [phone] 06/19/2022 Appointment Laboratory Medicine Angélica Granger P.A.-C. [address] [place] [phone] 07/03/2022 Appointment Laboratory Medicine Angélica Granger P.A.-C. [address] [place] [phone] 07/17/2022 Appointment Laboratory Medicine Angélica Granger P.A.-C. [address] [place] [phone] 07/31/2022 Appointment Laboratory Medicine Angélica Granger P.A.-C. [address] [place] [phone] 08/14/2022 Appointment Laboratory Medicine Angélica Granger P.A.-C. [address] [place] [phone] 08/28/2022 Appointment Laboratory Medicine Angélica Granger P.A.-C. [address] [place] [phone] documented as of this encounter Procedures Procedure Name Priority Date/Time Associated Diagnosis Comme [facility] US ABDOMEN COMPLETE Routine 08/18/2002 8:02 AM Re sults for this WITH LIVER DOPPLER WASH HELPER procedure are in the results section. documented in this encounter Results US Abdomen and Abdomen Doppler (08/18/2002 8:02 AM WASH HELPER) Anatomical Region Laterality Modality Abdomen N/A Ultrasound Specimen (Source) Anatomical Collection Method Collection Time Re ceived Time Location / / Volume Laterality 08/18/2002 8:02 AM WASH HELPER Narrative 08/18/2002 10:20 AM WASH HELPER 18-Aug-2002 08:02:00 ??Exam: US Abd Cmpl with [...] the left measuring 11.8cm, right measuring 11.5cm mzvd-ik-lpnp. ??Slight ectasia of the distal abdominal aorta with the upper aorta measurin g 1.9cm and the distal abdominal measuri ng 2.2cm. ??No significant change since 06-02-01. Ultrasound Electronic Images Only. No Fi lms Made. Ind: [phone] ?? [id number] ?? Electronically signed by: ?? Dorene Gordon MD. ??[id number] 18-Aug-2002 10:20 Procedure Note Otoniel Gordon M.D. [...] the left measuring 11.8cm, right measuring 11.5cm bkoo-ko-pusq. Slight ectasia of the distal abdominal aorta with the upper aorta measuring 1.9cm and the distal abdominal measuring 2.2cm. No significan t change since 06-02-01. Ultrasound Electronic Images Only. No Fi lms Made. Ind: [phone] [id number] Electronically signed by: Dorene Gordon MD. [id number] 18-Aug-2002 10:20 Santana HEREDIA US PROCEDURES documented in this encounter Visit Diagnoses Not on filedocumented in this encounter
--- OUTSIDE RECORDS SUMMARY | 2022-05-17 19:17 | XMS_ITS | Encounter Summary ---
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 [address] [place] [phone] 05/23/2022 Clinical Admitting/Central Communication Scheduling 05/27/2022 Comprehensive Visit Orthopedic Surgery Markus Sams M.D., Ph.D. [address] [place] [phone] 05/29/2022 Office Visit Otorhinolaryngology Dex Matta APRN, C.N.P., M.S.N. [address] [place] [phone] 05/29/2022 Office Visit Otorhinolaryngology Nadeem Maradiaga, PEdgar.Marie., M.S. [address] [place] [phone] 05/31/2022 Appointment Radiology Guilherme Matt MPAS, PMaryanne., M.S. [address] [place] [phone] 06/05/2022 Appointment Laboratory Medicine Angélica Granger P.A.-C. [address] [place] [phone] 06/19/2022 Appointment Laboratory Medicine Angélica Granger P.A.-C. [address] [place] [phone] 07/03/2022 Appointment Laboratory Medicine Angélica Granger P.A.-C. [address] [place] [phone] 07/17/2022 Appointment Laboratory Medicine Angélica Granger P.A.-C. [address] [place] [phone] 07/31/2022 Appointment Laboratory Medicine Angélica Granger P.A.-C. [address] [place] [phone] 08/14/2022 Appointment Laboratory Medicine Angélica Granger P.A.-C. [address] [place] [phone] 08/28/2022 Appointment Laboratory Medicine Angélica Granger P.A.-C. [address] [place] [phone] documented as of this encounter Visit Diagnoses Not on filedocumented in this encounter Additional Health Concerns Infection Onset Date Last Indicated Resolved Time COVID19 Pending 12/13/2019 12/13/2019 12/14/2019 11:03 AM CDT COVID19 Pending 01/26/2020 01/27/2020 01/28/2020 12:12 AM CDT documented as of this encounter Care Teams Consulting Intern Relationship Specialty Start Date End Date Elsewhere, Pcp PCP - General Family Medicine 07/29/17 [facility] - Laboratory Medicine 04/12/[address] [address] documented as of this encounter
--- OUTSIDE RECORDS SUMMARY | 2022-05-17 19:17 | XMS_ITS | Encounter Summary ---
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 [address] [place] [phone] 05/23/2022 Clinical Admitting/Central Communication Scheduling 05/27/2022 Comprehensive Visit Orthopedic Surgery Markus Sams M.D., Ph.D. [address] [place] [phone] 05/29/2022 Office Visit Otorhinolaryngology Dex Matta APRN, C.N.P., M.S.N. [address] [place] [phone] 05/29/2022 Office Visit Otorhinolaryngology Nadeem Maradiaga, PEdgar.Marie., M.S. [address] [place] [phone] 05/31/2022 Appointment Radiology Guilherme Matt MPAS, PMaryanne., M.S. [address] [place] [phone] 06/05/2022 Appointment Laboratory Medicine Angélica Granger P.A.-C. [address] [place] [phone] 06/19/2022 Appointment Laboratory Medicine Angélica Granger P.A.-C. [address] [place] [phone] 07/03/2022 Appointment Laboratory Medicine Angélica Granger P.A.-C. [address] [place] [phone] 07/17/2022 Appointment Laboratory Medicine Angélica Granger P.A.-C. [address] [place] [phone] 07/31/2022 Appointment Laboratory Medicine Angélica Granger P.A.-C. [address] [place] [phone] 08/14/2022 Appointment Laboratory Medicine Angélica Granger P.A.-C. [address] [place] [phone] 08/28/2022 Appointment Laboratory Medicine Angélica Granger P.A.-C. [address] [place] [phone] documented as of this encounter Visit Diagnoses Not on filedocumented in this encounter Additional Health Concerns Infection Onset Date Last Indicated Resolved Time COVID19 Pending 12/13/2019 12/13/2019 12/14/2019 11:03 AM CDT COVID19 Pending 01/26/2020 01/27/2020 01/28/2020 12:12 AM CDT documented as of this encounter Care Teams Bar Tacker Relationship Specialty Start Date End Date Elsewhere, Pcp PCP - General Family Medicine 07/29/17 [facility] - Laboratory Medicine 04/12/[address] [address] documented as of this encounter
--- OUTSIDE RECORDS SUMMARY | 2022-05-17 19:17 | XMS_ITS | Encounter Summary ---
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 [address] [place] [phone] 05/23/2022 Clinical Admitting/Central Communication Scheduling 05/27/2022 Comprehensive Visit Orthopedic Surgery Markus Sams M.D., Ph.D. [address] [place] [phone] 05/29/2022 Office Visit Otorhinolaryngology Dex Matta APRN, C.N.P., M.S.N. [address] [place] [phone] 05/29/2022 Office Visit Otorhinolaryngology Nadeem Maradiaga, PMaryanne., M.S. [address] [place] [phone] 05/31/2022 Appointment Radiology Guilherme Matt, RASTA, PMaryanne., M.S. [address] [place] [phone] 06/05/2022 Appointment Laboratory Medicine Angélica Granger P.A.-C. [address] [place] [phone] 06/19/2022 Appointment Laboratory Medicine Angélica Granger P.A.-C. [address] [place] [phone] 07/03/2022 Appointment Laboratory Medicine Angélica Granger P.A.-C. [address] [place] [phone] 07/17/2022 Appointment Laboratory Medicine Angélica Granger P.A.-C. [address] [place] [phone] 07/31/2022 Appointment Laboratory Medicine Angélica Granger P.A.-C. [address] [place] [phone] 08/14/2022 Appointment Laboratory Medicine Angélica Granger P.A.-C. [address] [place] [phone] 08/28/2022 Appointment Laboratory Medicine Angélica Granger P.A.-C. [address] [place] [phone] documented as of this encounter Visit Diagnoses Not on filedocumented in this encounter
--- OUTSIDE RECORDS SUMMARY | 2022-05-17 19:17 | XMS_ITS | Encounter Summary ---
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 [address] [place] [phone] 05/23/2022 Clinical Admitting/Central Communication Scheduling 05/27/2022 Comprehensive Visit Orthopedic Surgery Markus Sams M.D., Ph.D. [address] [place] [phone] 05/29/2022 Office Visit Otorhinolaryngology Dex Matta APRN, C.N.P., M.S.N. [address] [place] [phone] 05/29/2022 Office Visit Otorhinolaryngology Nadeem Maradiaga, PEdgar.Marie., M.S. [address] [place] [phone] 05/31/2022 Appointment Radiology Guilherme Matt MPAS, PMaryanne., M.S. [address] [place] [phone] 06/05/2022 Appointment Laboratory Medicine Angélica Granger P.A.-C. [address] [place] [phone] 06/19/2022 Appointment Laboratory Medicine Angélica Granger P.A.-C. [address] [place] [phone] 07/03/2022 Appointment Laboratory Medicine Angélica Granger P.A.-C. [address] [place] [phone] 07/17/2022 Appointment Laboratory Medicine Angélica Granger P.A.-C. [address] [place] [phone] 07/31/2022 Appointment Laboratory Medicine Angélica Granger P.A.-C. [address] [place] [phone] 08/14/2022 Appointment Laboratory Medicine Angélica Granger P.A.-C. [address] [place] [phone] 08/28/2022 Appointment Laboratory Medicine Angélica Granger P.A.-C. [address] [place] [phone] documented as of this encounter Visit Diagnoses Not on filedocumented in this encounter Additional Health Concerns Infection Onset Date Last Indicated Resolved Time COVID19 Pending 12/13/2019 12/13/2019 12/14/2019 11:03 AM CDT COVID19 Pending 01/26/2020 01/27/2020 01/28/2020 12:12 AM CDT documented as of this encounter Care Teams Equipment Analyst Relationship Specialty Start Date End Date Elsewhere, Pcp PCP - General Family Medicine 07/29/17 [facility] - Laboratory Medicine 04/12/[address] [phone] documented as of this encounter
--- OUTSIDE RECORDS SUMMARY | 2022-05-17 19:17 | XMS_ITS | Encounter Summary ---
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 [address] [place] [phone] 05/23/2022 Clinical Admitting/Central Communication Scheduling 05/27/2022 Comprehensive Visit Orthopedic Surgery Markus Sams M.D., Ph.D. [address] [place] [phone] 05/29/2022 Office Visit Otorhinolaryngology Dex Matta APRN, C.N.P., M.S.N. [address] [place] [phone] 05/29/2022 Office Visit Otorhinolaryngology Nadeem Maradiaga, P.Murtaza.-Arley., M.S. [address] [place] [phone] 05/31/2022 Appointment Radiology Guilherme Matt MPAS, Jennifer., M.S. [address] [place] [phone] 06/05/2022 Appointment Laboratory Medicine Angélica Granger P.A.-C. [address] [place] [phone] 06/19/2022 Appointment Laboratory Medicine GunAngélica wilcox P.A.-C. [address] [place] [phone] 07/03/2022 Appointment Laboratory Medicine Angélica Granger P.A.-C. [address] [place] [phone] 07/17/2022 Appointment Laboratory Medicine Angélica Granger P.A.-C. [address] [place] [phone] 07/31/2022 Appointment Laboratory Medicine Angélica Granger P.A.-C. [address] [place] [phone] 08/14/2022 Appointment Laboratory Medicine Angélica Granger P.A.-C. [address] [place] [phone] 08/28/2022 Appointment Laboratory Medicine Angélica Granger P.A.-C. [address] [place] [phone] documented as of this encounter Visit Diagnoses Not on filedocumented in this encounter
--- OUTSIDE RECORDS SUMMARY | 2022-05-17 19:17 | XMS_ITS | Encounter Summary ---
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 [address] [place] [phone] 05/23/2022 Clinical Admitting/Central Communication Scheduling 05/27/2022 Comprehensive Visit Orthopedic Surgery Markus Sams M.D., Ph.D. [address] [place] [phone] 05/29/2022 Office Visit Otorhinolaryngology Dex Matta APRN C.NDemetriusP., M.S.N. [address] [place] [phone] 05/29/2022 Office Visit Otorhinolaryngology Nadeem Maradiaga, Jennifer., M.S. [address] [place] [phone] 05/31/2022 Appointment Radiology Guilherme Matt, RASTA, Edmundo, M.S. [address] [place] [phone] 06/05/2022 Appointment Laboratory Medicine Angélica Granger P.A.-C. [address] [place] [phone] 06/19/2022 Appointment Laboratory Medicine Angélica Granger P.A.-C. [address] [place] [phone] 07/03/2022 Appointment Laboratory Medicine Anéglica Granger P.A.-C. [address] [place] [phone] 07/17/2022 Appointment Laboratory Medicine Angélica Granger P.A.-C. [address] [place] [phone] 07/31/2022 Appointment Laboratory Medicine Angélica Granger P.A.-C. [address] [place] [phone] 08/14/2022 Appointment Laboratory Medicine Angélica Granger P.A.-C. [address] [place] [phone] 08/28/2022 Appointment Laboratory Medicine Angélica Granger P.A.-C. [address] [place] [phone] documented as of this encounter Visit Diagnoses Not on filedocumented in this encounter
--- OUTSIDE RECORDS SUMMARY | 2022-05-17 19:18 | XMS_ITS | Encounter Summary ---
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 [address] [place] [phone] 05/23/2022 Clinical Admitting/Central Communication Scheduling 05/27/2022 Comprehensive Visit Orthopedic Surgery Markus Sams M.D., Ph.D. [address] [place] [phone] 05/29/2022 Office Visit Otorhinolaryngology Dex Matta APRN, C.N.P., M.S.N. [address] [place] [phone] 05/29/2022 Office Visit Otorhinolaryngology Nadeem Maradiaga, PMaryanne., M.S. [address] [place] [phone] 05/31/2022 Appointment Radiology Guilherme Matt, RASTA, Jennifer., M.S. [address] [place] [phone] 06/05/2022 Appointment Laboratory Medicine Angélica Granger P.A.-C. [address] [place] [phone] 06/19/2022 Appointment Laboratory Medicine Angélica Granger P.A.-C. [address] [place] [phone] 07/03/2022 Appointment Laboratory Medicine Angélica Granger P.A.-C. [address] [place] [phone] 07/17/2022 Appointment Laboratory Medicine Angélica Granger P.A.-C. [address] [place] [phone] 07/31/2022 Appointment Laboratory Medicine Angélica Granger P.A.-C. [address] [place] [phone] 08/14/2022 Appointment Laboratory Medicine Angélica Granger P.A.-C. [address] [place] [phone] 08/28/2022 Appointment Laboratory Medicine Angélica Granger P.A.-C. [address] [place] [phone] documented as of this encounter Procedures Procedure [...] [id number] 22-Dec-1998 09:3 9 Santana Patterson M.D. G IR PROCEDURES Prepare platelets (12/21/1998 2:40 PM CDT) Specimen Anatomical Collection Method Collection Time Receive d Time (Source) Location / / Volume Laterality 12/21/1998 2:40 PM 9 5:03 CDT PM CDT Narrative [facility] - 12/21/1998 2:40 PM CDT 21 Dec 1998 ?[id number] ?Ro ?14:40 ?? Platelet TRF Order: ?Blood Component ?P latelets, Pooled ?Transfused ? 21 Dec 1998 ?Unit Number Id ? [id number] Procedure Note 10/08/2017 21 Dec 1998 [id number] Ro 14:40 Platelet TRF Order: Blood Component Platelets, Pooled Transfused 21 Dec 1998 Unit Number Id [id number] Historical Provider BLOOD BANK PRODUCT ORDERABLE S Performing Organization Address City/State/ZIP Code Phon e Number [facility] - [address] [place], [place] [address] [facility] Prepare fresh frozen plasma (12/21/1998 2:40 PM CDT) Specimen Anatomical Collection Method Collection Time Receive d Time (Source) Location / / Volume Laterality 12/21/1998 2:40 PM 12/21/199 9 5:02 CDT PM CDT Narrative [facility] - 12/21/1998 2:40 PM CDT 21 Dec 1998 ?[id number] ?Ro ?14:40 ?? FFP TRF Order: ?Blood Component ?F FP, Thawed ?Transfused ? 21 Dec 1998 ?Unit Number Id ? [id number] ?Blood Component ?F FP, Thawed ?Transfused ? 21 Dec 1998 ?Unit Number Id ? [id number] Procedure Note 10/08/2017 21 Dec 1998 [id number] Ro 14:40 FFP TRF Order: Blood Component FFP, Thawed Transfused 21 Dec 1998 Unit Number Id [id number] Blood Component FFP, Thawed Transfused 21 Dec 1998 Unit Number Id [id number] Historical Provider BLOOD BANK PRODUCT ORDERABLE S Performing Organization Address City/State/ZIP Code Phon e Number [facility] - [address] [place], [place] [address] [facility] documented in this encounter Visit Diagnoses Not on filedocumented in this encounter
--- OUTSIDE RECORDS SUMMARY | 2022-05-17 19:18 | XMS_ITS | Encounter Summary ---
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 [address] [place] [phone] 05/23/2022 Clinical Admitting/Central Communication Scheduling 05/27/2022 Comprehensive Visit Orthopedic Surgery Markus Sams M.D., Ph.D. [address] [place] [phone] 05/29/2022 Office Visit Otorhinolaryngology Dex Matta APRN, C.N.P., M.S.N. [address] [place] [phone] 05/29/2022 Office Visit Otorhinolaryngology Nadeem Maradiaga, PMaryanne., M.S. [address] [place] [phone] 05/31/2022 Appointment Radiology Guilherme Matt, RASTA, Jennifer., M.S. [address] [place] [phone] 06/05/2022 Appointment Laboratory Medicine Angélica Granger P.A.-C. [address] [place] [phone] 06/19/2022 Appointment Laboratory Medicine Angélica Granger P.A.-C. [address] [place] [phone] 07/03/2022 Appointment Laboratory Medicine Angélica Granger P.A.-C. [address] [place] [phone] 07/17/2022 Appointment Laboratory Medicine Angélica Granger P.A.-C. [address] [place] [phone] 07/31/2022 Appointment Laboratory Medicine Angélica Granger P.A.-C. [address] [place] [phone] 08/14/2022 Appointment Laboratory Medicine Angélica Granger P.A.-C. [address] [place] [phone] 08/28/2022 Appointment Laboratory Medicine Angélica Granger P.A.-C. [address] [place] [phone] documented as of this encounter Visit Diagnoses Not on filedocumented in this encounter
--- OUTSIDE RECORDS SUMMARY | 2022-05-17 19:18 | XMS_ITS | Encounter Summary ---
:1955 Author Organization 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 [address] [place] [phone] 05/23/2022 Clinical Admitting/Central Communication Scheduling 05/27/2022 Comprehensive Visit Orthopedic Surgery Markus Sams M.D., Ph.D. [address] [place] [phone] 05/29/2022 Office Visit Otorhinolaryngology Dex Matta APRN, C.N.P., M.S.N. [address] [place] [phone] 05/29/2022 Office Visit Otorhinolaryngology Nadeem Maradiaga, PMaryanne., M.S. [address] [place] [phone] 05/31/2022 Appointment Radiology Guilherme Matt, RASTA, Jennifer., M.S. [address] [place] [phone] 06/05/2022 Appointment Laboratory Medicine Angélica Granger P.A.-C. [address] [place] [phone] 06/19/2022 Appointment Laboratory Medicine Angélica Granger P.A.-C. [address] [place] [phone] 07/03/2022 Appointment Laboratory Medicine Angélica Granger P.A.-C. [address] [place] [phone] 07/17/2022 Appointment Laboratory Medicine Angélica Granger P.A.-C. [address] [place] [phone] 07/31/2022 Appointment Laboratory Medicine Angélica Granger P.A.-C. [address] [place] [phone] 08/14/2022 Appointment Laboratory Medicine Angélica Granger P.A.-C. [address] [place] [phone] 08/28/2022 Appointment Laboratory Medicine Angélica Granger P.A.-C. [address] [place] [phone] documented as of this encounter Procedures Procedure [...] PM 9 1:50 CDT PM CDT Narrative [facility] - 03/30/1999 1:50 PM CDT 30Mar1999 Cytology - Non-gynecological Requested By: ? Jaxson carrera M.D. ?([id number]) ?? SPECIMEN DESCRIPTION: ?Received 30 cc of Blood Tinged Abd ominal Fluid. ?? DIAGNOSIS: ?? Abdominal Fluid: No abnormal cells s een. ?? 02Apr1999 ?Sergio Henry M.D.:sjf Procedure Note 09/12/2017 30Mar1999 Cytology - Non-gynecological Requested By: Jaxson Wolfe M.D. ([id number]) SPECIMEN DESCRIPTION: Received 30 cc of Blood Tinged Abdomina l Fluid. DIAGNOSIS: Abdominal Fluid: No abnormal cells seen . 02Apr1999 Sergio Henry M.D.:s jf Jaxson Wolfe M.D. LAB PATHOLOGY/CYTOLOGY ORDER OSMEL Performing Organization Address City/State/ZIP Code Phon e Number [facility] - [address] [place], [place] [address] [facility] [employer] [facility] Prepare Red Blood Cells (03/30/1999 10:42 AM CDT) Specimen Anatomical Collection Method Collection Time Receive d Time (Source) Location / / Volume Laterality 03/30/1999 10:42 03/30/1999 4:31 AM CDT PM CDT Narrative [facility] - 03/30/1999 10:42 AM CDT 30 Mar 1999 ?[id number] ?Ro ?10:42 ?? RBC TRF Order: ?ABO/RH ? O POS ?Antibody Screen ?N eg ?Blood Component ?R BC, Leukoreduced -3 ?Transfused ? 30 Mar 1999 ?Unit Number Id ? [id number] ?Blood Component ?R BC, Leukoreduced -3 ?Transfused ? 30 Mar 1999 ?Unit Number Id ? [id number] Procedure Note 10/08/2017 30 Mar 1999 [id number] Ro 10:42 RBC TRF Order: ABO/RH O POS Antibody Screen Neg Blood Component RBC, Leukoreduced -3 Transfused 30 Mar 1999 Unit Number Id [id number] Blood Component RBC, Leukoreduced -3 Transfused 30 Mar 1999 Unit Number Id [id number] Historical Provider BLOOD BANK PRODUCT ORDERABLE S Performing Organization Address City/State/ZIP Code Phon e Number [facility] - [address] [place], [place] [address] [employer] [facility] [employer] [facility] Cytology (03/29/1999 12:45 PM CDT) Specimen Anatomical Collection Method Collection Time Receive d Time (Source) Location / / Volume Laterality 03/29/1999 12:45 03/29/1999 PM CDT 12:45 PM CDT Narrative [facility] - 03/29/1999 12:45 PM CDT [id number] Cytology - Fine Needle Aspira te Requested By: ? Suzanne Mei M.D. ?([id number]) ?? DIAGNOSIS: ?? Liver, fine needle aspiration biopsy : ?Aspirate smear-Negative for neoplasm. ?Core biopsy-Cirrhosis with a broad area of scar, interface necroinflammatory activity and ?? cholestasis. ??No evidence of neopla sm. ?? Seen in consultation with Dr. Scooby Salguero. ?? 30Mar1999 ?Al Barlow M.D.:[facility] Procedure Note 09/12/2017 29Mar1999 Cytology - Fine Needle Aspira te Requested By: Suzanne Mei M.D. ([id number]) DIAGNOSIS: Liver, fine needle aspiration biopsy: Aspirate smear-Negative for neoplasm. Core biopsy-Cirrhosis with a broad area of scar, interface necroinflammatory activity and cholestasis. No evidence of neoplasm. Seen in consultation with Dr. Scooby hernnadez [id number] Al Barlow M.D.:[facility] Suzanne Mei M.D. LAB PATHOLOGY/CYTOLOGY ORDER OSMEL Performing Organization Address City/State/ZIP Code Phon e Number [facility] - [address] [place] Liver Biopsy (03/29/1999 12:25 PM [...] Janette Mei MD. [id number] 29-Mar-1999 13:27 Jaxson HEREDIA PROCEDURES Prepare fresh frozen plasma (03/29/1999 12:39 AM CDT) Specimen Anatomical Collection Method Collection Time Receive d Time (Source) Location / / Volume Laterality 03/29/1999 12:39 03/29/1999 AM CDT 10:[address] [facility] 03/29/1999 12:39 AM CDT 29 Mar 1999 ?[id number] ?Ro ?00:39 ?? FFP TRF Order: ?Blood Component ?F FP, Thawed ?Transfused ? 29 Mar 1999 ?Unit Number Id ? [id number] ?Blood Component ?F FP, Thawed ?Transfused ? 29 Mar 1999 ?Unit Number Id ? [id number] ?Blood Component ?F FP, Thawed ?Transfused ? 29 Mar 1999 ?Unit Number Id ? [id number] ?Blood Component ?F FP, Thawed ?Transfused ? 29 Mar 1999 ?Unit Number Id ? [id number] Procedure Note 10/08/2017 29 Mar 1999 [id number] Ro 00:39 FFP TRF Order: Blood Component FFP, Thawed Transfused 29 Mar 1999 Unit Number Id [id number] Blood Component FFP, Thawed Transfused 29 Mar 1999 Unit Number Id [id number] Blood Component FFP, Thawed Transfused 29 Mar 1999 Unit Number Id [id number] Blood Component FFP, Thawed Transfused 29 Mar 1999 Unit Number Id [id number] Historical Provider BLOOD BANK PRODUCT ORDERABLE S Performing Organization Address [facility] Phon e Number [facility] - [address] [place] [phone] [employer] Prepare platelets (03/29/1999 12:37 AM CDT) Specimen Anatomical Collection Method Collection Time Receive d Time (Source) Location / / Volume Laterality 03/29/1999 12:37 03/29/1999 7:10 AM CDT AM CDT Narrative [facility] - 03/29/1999 12:37 AM CDT 29 Mar 1999 ?[id number] ?Ro ?00:37 ?? Platelet TRF Order: ?Blood Component ?P latelets, Pooled ?Transfused ? 29 Mar 1999 ?Unit Number Id ? [id number] Procedure Note 10/08/2017 29 Mar 1999 [id number] Ro 00:37 Platelet TRF Order: Blood Component Platelets, Pooled Transfused 29 Mar 1999 Unit Number Id [id number] Historical Provider BLOOD BANK PRODUCT ORDERABLE S Performing Organization Address City/[facility] Code Phon e Number [facility] - [address] [place] [phone] [employer] [facility] Prepare fresh frozen plasma (03/28/1999 11:00 PM CDT) Specimen Anatomical Collection Method Collection Time Receive d Time (Source) Location / / Volume Laterality 03/28/1999 11:00 03/29/1999 PM CDT 12:24 AM CDT Narrative [facility] - 03/28/1999 11:00 PM CDT 28 Mar 1999 ?[id number] ?Ro ?23:00 ?? FFP TRF Order: ?Blood Component ?F FP, Thawed ?Transfused ? 28 Mar 1999 ?Unit Number Id ? [id number] ?Blood Component ?F FP, Thawed ?Transfused ? 28 Mar 1999 ?Unit Number Id ? [id number] ?Blood Component ?F FP, Thawed ?Transfused ? 28 Mar 1999 ?Unit Number Id ? [id number] ?Blood Component ?F FP, Thawed ?Transfused ? 28 Mar 1999 ?Unit Number Id ? [id number] Procedure Note 10/08/2017 28 Mar 1999 [id number] Ro 23:00 FFP TRF Order: Blood Component FFP, Thawed Transfused 28 Mar 1999 Unit Number Id [id number] Blood Component FFP, Thawed Transfused 28 Mar 1999 Unit Number Id [id number] Blood Component FFP, Thawed Transfused 28 Mar 1999 Unit Number Id [id number] Blood Component FFP, Thawed Transfused 28 Mar 1999 Unit Number Id [id number] Historical Provider BLOOD BANK PRODUCT ORDERABLE S Performing Organization Address City/State/ZIP Code Phon e Number [facility] - [address] [place], [place] [address] [employer] [facility] documented in this encounter Visit Diagnoses Not on filedocumented in this encounter
--- OUTSIDE RECORDS SUMMARY | 2022-05-17 19:18 | XMS_ITS | Encounter Summary ---
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 [address] [place] [phone] 05/23/2022 Clinical Admitting/Central Communication Scheduling 05/27/2022 Comprehensive Visit Orthopedic Surgery Markus Sams M.D., Ph.D. [address] [place] [phone] 05/29/2022 Office Visit Otorhinolaryngology Dex Matta APRN, C.N.P., M.S.N. [address] [place] [phone] 05/29/2022 Office Visit Otorhinolaryngology Nadeem Maradiaga, PEdgar.Marie., M.S. [address] [place] [phone] 05/31/2022 Appointment Radiology Guilherme Matt MPAS, PMaryanne., M.S. [address] [place] [phone] 06/05/2022 Appointment Laboratory Medicine Angélica Granger P.A.-C. [address] [place] [phone] 06/19/2022 Appointment Laboratory Medicine Angélica Granger P.A.-C. [address] [place] [phone] 07/03/2022 Appointment Laboratory Medicine Angélica Granger P.A.-C. [address] [place] [phone] 07/17/2022 Appointment Laboratory Medicine Angélica Granger P.A.-C. [address] [place] [phone] 07/31/2022 Appointment Laboratory Medicine Angélica Granger P.A.-C. [address] [place] [phone] 08/14/2022 Appointment Laboratory Medicine Angélica Granger P.A.-C. [address] [place] [phone] 08/28/2022 Appointment Laboratory Medicine Angélica Granger P.A.-C. [address] [place] [phone] documented as of this encounter Visit Diagnoses Not on filedocumented in this encounter Additional Health Concerns Infection Onset Date Last Indicated Resolved Time COVID19 Pending 12/13/2019 12/13/2019 12/14/2019 11:03 AM CDT COVID19 Pending 01/26/2020 01/27/2020 01/28/2020 12:12 AM CDT documented as of this encounter Care Teams It Disaster Recovery Manager Relationship Specialty Start Date End Date Elsewhere, Pcp PCP - General Family Medicine 07/29/17 [facility] - Laboratory Medicine 04/12/[address] [address] documented as of this encounter
--- OUTSIDE RECORDS SUMMARY | 2022-05-17 19:18 | XMS_ITS | Encounter Summary ---
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 [address] [place] [phone] 05/23/2022 Clinical Admitting/Central Communication Scheduling 05/27/2022 Comprehensive Visit Orthopedic Surgery Markus Sams M.D., Ph.D. [address] [place] [phone] 05/29/2022 Office Visit Otorhinolaryngology Dex Matta APRN, C.N.P., M.S.N. [address] [place] [phone] 05/29/2022 Office Visit Otorhinolaryngology Nadeem Maradiaga, PEdgar.Marie., M.S. [address] [place] [phone] 05/31/2022 Appointment Radiology Guilherme Matt MPAS, PMaryanne., M.S. [address] [place] [phone] 06/05/2022 Appointment Laboratory Medicine Angélica Granger P.A.-C. [address] [place] [phone] 06/19/2022 Appointment Laboratory Medicine Angélica Granger P.A.-C. [address] [place] [phone] 07/03/2022 Appointment Laboratory Medicine Angélica Granger P.A.-C. [address] [place] [phone] 07/17/2022 Appointment Laboratory Medicine Angélica Granger P.A.-C. [address] [place] [phone] 07/31/2022 Appointment Laboratory Medicine Angélica Granger P.A.-C. [address] [place] [phone] 08/14/2022 Appointment Laboratory Medicine Angélica Granger P.A.-C. [address] [place] [phone] 08/28/2022 Appointment Laboratory Medicine Angélica Granger P.A.-C. 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 - Laboratory Medicine 04/12/[address] [address] documented as of this encounter
--- OUTSIDE RECORDS SUMMARY | 2022-05-17 19:18 | XMS_ITS | Encounter Summary ---
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 [address] [place] [phone] 05/23/2022 Clinical Admitting/Central Communication Scheduling 05/27/2022 Comprehensive Visit Orthopedic Surgery Markus Sams M.D., Ph.D. [address] [place] [phone] 05/29/2022 Office Visit Otorhinolaryngology Dex Matta APRN, C.N.P., M.S.N. [address] [place] [phone] 05/29/2022 Office Visit Otorhinolaryngology Nadeem Maradiaga, PEdgar.Marie., M.S. [address] [place] [phone] 05/31/2022 Appointment Radiology Guilherme Matt MPAS, PMaryanne., M.S. [address] [place] [phone] 06/05/2022 Appointment Laboratory Medicine Angélica Granger P.A.-C. [address] [place] [phone] 06/19/2022 Appointment Laboratory Medicine Angélica Granger P.A.-C. [address] [place] [phone] 07/03/2022 Appointment Laboratory Medicine Angélica Granger P.A.-C. [address] [place] [phone] 07/17/2022 Appointment Laboratory Medicine Angélica Granger P.A.-C. [address] [place] [phone] 07/31/2022 Appointment Laboratory Medicine Angélica Granger P.A.-C. [address] [place] [phone] 08/14/2022 Appointment Laboratory Medicine Angélica Granger P.A.-C. [address] [place] [phone] 08/28/2022 Appointment Laboratory Medicine Angélica Granger P.A.-C. [address] [place] [phone] documented as of this encounter Visit Diagnoses Not on filedocumented in this encounter Additional Health Concerns Infection Onset Date Last Indicated Resolved Time COVID19 Pending 12/13/2019 12/13/2019 12/14/2019 11:03 AM CDT COVID19 Pending 01/26/2020 01/27/2020 01/28/2020 12:12 AM CDT documented as of this encounter Care Teams Infection Control Rn Relationship Specialty Start Date End Date Elsewhere, Pcp PCP - General Family Medicine 07/29/17 [facility] - Laboratory Medicine 04/12/[address] [address] documented as of this encounter
--- OUTSIDE RECORDS SUMMARY | 2022-05-17 19:18 | XMS_ITS ---
:1955 Author Organization [facility] Address [address] [place] [address] Care Team Providers Name Role Phone Elsewhere, Pcp Primary Care Provider Unavailable Transplant [place] [facility] LiverTransplanted on 05/25/1999Marked as Not Followed on 06/12/2013 Reason: Graft Failure/RelistedLiver failed on 06/12/2013 Liver CoordinatorCoordinator Transplant, R.N.Phone: N/AFax: N/AEmail: N/A [place] Organ Diagnosis Organ Primary Contributory Liver Cirrhosis: [...] N/A Transplant, R.NDemetrius Ramirez M.D. Referring Provider [phone] N/ A Ryan Cole M.D. Transplant External [phone] [email or web address] Technical Instructor Course Developer nikki bernstein Events Post-Transplant Pre-Transplant Admitted: 02/15/1998 Referred: 05/25/1999 Transplanted: 05/25/1999 Center waitlisted: 04/27/1998 Discharged: 06/27/1999 Liver failed: 06/12/2013 Dialysis History Dialysis History Start End Type Comments Center 06/01/[address] [facility] Dialysis Dialysis Center Information Center Phone Fax Address ESRD [facility] Dialysis [facility] [address] [facility] [phone]
--- OUTSIDE RECORDS SUMMARY | 2022-05-17 19:18 | XMS_ITS ---
:1955 Author Organization [facility] Address [address] [place] [address] Care Team Providers Name Role Phone Elsewhere, Pcp Primary Care Provider Unavailable [facility] [place]: LiverTransplanted on 06/12/2013Marked as Active Follow-up on 06/12/2013 Liver CoordinatorYolie Dubois R.N. Gqh: N/AEmail: [email or web address] [place] Organ Diagnosis Organ Primary Contributory Liver Cirrhosis: [...] Fax Email Yolie Dubois R.N. Liver Coordinator [phone] N/A [email or web address] Santana Ramirez M.D. Referring Provider [phone] N/ A Events Post-Transplant Pre-Transplant Admitted: 06/10/2013 Referred: 03/25/2012 Transplanted: 06/12/2013 Evaluation began: 03/25/2012 Discharged: 06/19/2013 Center waitlisted: 11/04/2012 Dialysis History Dialysis History Start End Type Comments Center 06/01/2021 Hemo ESRD [facility] Dialysis Dialysis Center Information Center Phone Fax Address ESRD [facility] [address] [facility] [phone]
--- OUTSIDE RECORDS SUMMARY | 2022-05-17 19:18 | XMS_ITS | Encounter Summary ---
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 [address] [place] [phone] 05/23/2022 Clinical Admitting/Central Communication Scheduling 05/27/2022 Comprehensive Visit Orthopedic Surgery Markus Sams M.D., Ph.D. [address] [place] [phone] 05/29/2022 Office Visit Otorhinolaryngology Dex Matta APRN, C.N.P., M.S.N. [address] [place] [phone] 05/29/2022 Office Visit Otorhinolaryngology Nadeem Maradiaga, PMaryanne., M.S. [address] [place] [phone] 05/31/2022 Appointment Radiology Guilherme Matt, RASTA, Jennifer., M.S. [address] [place] [phone] 06/05/2022 Appointment Laboratory Medicine Angélica Granger P.A.-C. [address] [place] [phone] 06/19/2022 Appointment Laboratory Medicine Angélica Granger P.A.-C. [address] [place] [phone] 07/03/2022 Appointment Laboratory Medicine Angélica Granger P.A.-C. [address] [place] [phone] 07/17/2022 Appointment Laboratory Medicine Angélica Granger P.A.-C. [address] [place] [phone] 07/31/2022 Appointment Laboratory Medicine Angélica Granger P.A.-C. [address] [place] [phone] 08/14/2022 Appointment Laboratory Medicine Angélica Granger P.A.-C. [address] [place] [phone] 08/28/2022 Appointment Laboratory Medicine Angélica Granger P.A.-C. [address] [place] [phone] documented as of this encounter Procedures Procedure Name Priority Date/Time Associated Diagnosis Comme nts DX CHEST AP OR PA Routine 06/18/1999 8:24 AM Resu lts for this AND LATERAL 2 VIEWS ORNAMENTAL BRONZE WORKER procedur e are in the results section. DX CHEST AP OR PA Routine 06/15/1999 8:05 AM Resu lts for this AND LATERAL 2 VIEWS ORNAMENTAL BRONZE WORKER procedur e are in the results section. documented in this encounter Results DX Chest AP or PA and Lateral 2 Views (06/18/1999 8:24 AM ORNAMENTAL BRONZE WORKER) Anatomical Region Laterality Modality Chest N/A Radiographic Imaging Specimen (Source) Anatomical Collection Method Collection Time Re ceived Time Location / / Volume Laterality 06/18/1999 8:24 AM ORNAMENTAL BRONZE WORKER Narrative 06/18/1999 8:53 AM ORNAMENTAL BRONZE WORKER 18-Jun-1999 08:24:00 ??Exam: Chest-- 2 Views Indications: S/P OLT ORIGINAL REPORT - 18-Jun-1999 08:53:00 Negative chest. Electronically signed by: ?? FELIX Rizzo MD. ??[id number] 18-Jun-1999 08:53 Procedure Note Dannielle Rizzo M.D. - 09/29/2017Formatt ing of this note might be different from the original. 18-Jun-1999 08:24:00 Exam: Chest-- 2 Vie ws Indications: S/P OLT ORIGINAL REPORT - 18-Jun-1999 08:53:00 Negative chest. Electronically signed by: FELIX Rizzo MD. [id number] 18-Jun-1999 08:53 Anatoliy Bernardo M.D. IMG DIAGNOSTIC IMAGING PROCE DURES DX Chest AP or PA and Lateral 2 Views (06/15/1999 8:05 AM ORNAMENTAL BRONZE WORKER) Anatomical Region Laterality Modality Chest N/A Radiographic Imaging Specimen (Source) Anatomical Collection Method Collection Time Re ceived Time Location / / Volume Laterality 06/15/1999 8:05 AM ORNAMENTAL BRONZE WORKER Narrative 06/15/1999 11:23 AM ORNAMENTAL BRONZE WORKER 15-Jun-1999 08:05:00 ??Exam: Chest-- 2 Views Indications: pre-okt3 ORIGINAL REPORT - 15-Jun-1999 08:40:00 Negative chest. Electronically signed by: ?? Saeed Lerma M.D. [id number] ([id number]) 15-Jun-19 99 08:40 I have reviewed [...] chest. Electronically signed by: Saeed Lerma M.D. [id number] ([id number]) 15-Jun-19 99 08:40 I have reviewed the films/images and agr ee with the above interpretation. Electronically signed by: Char Hernández MD. [id number] 15-Jun-1999 11:23 Anatoliy HEREDIA DIAGNOSTIC IMAGING PROCE DURES documented in this encounter Visit Diagnoses Not on filedocumented in this encounter
--- OUTSIDE RECORDS SUMMARY | 2022-05-17 19:18 | XMS_ITS | Encounter Summary ---
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 [address] [place] [phone] 05/23/2022 Clinical Admitting/Central Communication Scheduling 05/27/2022 Comprehensive Visit Orthopedic Surgery Markus Sams M.D., Ph.D. [address] [place] [phone] 05/29/2022 Office Visit Otorhinolaryngology Dex Matta APRN CDemetriusNFabrice., M.S.N. [address] [place] [phone] 05/29/2022 Office Visit Otorhinolaryngology Nadeem Maradiaga, Jennifer., M.S. [address] [place] [phone] 05/31/2022 Appointment Radiology Guilherme Matt, RASTA, Jennifer., M.S. [address] [place] [phone] 06/05/2022 Appointment Laboratory Medicine Angélica Granger P.A.-C. [address] [place] [phone] 06/19/2022 Appointment Laboratory Medicine Angélica Granger P.A.-C. [address] [place] [phone] 07/03/2022 Appointment Laboratory Medicine Angélica Granger P.A.-C. [address] [place] [phone] 07/17/2022 Appointment Laboratory Medicine Angélica Granger P.A.-C. [address] [place] [phone] 07/31/2022 Appointment Laboratory Medicine Angélica Granger P.A.-C. [address] [place] [phone] 08/14/2022 Appointment Laboratory Medicine Angélica Granger P.A.-C. [address] [place] [phone] 08/28/2022 Appointment Laboratory Medicine Angélica Granger P.A.-C. [address] [place] [phone] documented as of this encounter Procedures Procedure Name Priority Date/Time Associated Diagnosis Comme nts DX CHEST AP OR PA Routine 05/22/1999 2:16 PM Resu lts for this AND LATERAL 2 VIEWS REMELT OPERATOR procedur e are in the results section. PREPARE RED BLOOD Routine 05/22/1999 2:00 PM Resu lts for this CELLS REMELT OPERATOR procedure are i n the results section. ECG Routine 05/22/1999 1:38 PM Results f or this REMELT OPERATOR procedure are i n the results section. documented in this encounter Results DX Chest AP or PA and Lateral 2 Views (05/22/1999 2:16 PM REMELT OPERATOR) Anatomical Region Laterality Modality Chest N/A Radiographic Imaging Specimen (Source) Anatomical Collection Method Collection Time Re ceived Time Location / / Volume Laterality 05/22/1999 2:16 PM REMELT OPERATOR Narrative 05/22/1999 2:59 PM REMELT OPERATOR 22-May-1999 14:16:00 ??Exam: Chest-- 2 Views Indications: PRE-OP OLT ORIGINAL REPORT - 22-May-1999 14:59:00 Negative chest. Electronically signed by: ?? German ??Julian MIRAMONTES ??[id number] 22-May-1999 14 :59 Procedure Note Philip Lawrence M.D. - 09/29/2017Format ting of this note might be different from the original. 22-May-1999 14:16:00 Exam: Chest-- 2 Vie ws Indications: PRE-OP OLT ORIGINAL REPORT - 22-May-1999 14:59:00 Negative chest. Electronically signed by: German Larwence MD. [id number] 22-May-1999 14:59 Historical Provider IMG DIAGNOSTIC IMAGING PROCE IKE Prepare Red Blood Cells (05/22/1999 2:00 PM REMELT OPERATOR) Specimen Anatomical Collection Method Collection Time Receive d Time (Source) Location / / Volume Laterality 05/22/1999 2:00 PM REMELT OPERATOR 10:37 PM REMELT OPERATOR Narrative [facility] - 05/22/1999 2:00 PM REMELT OPERATOR 22 May 1999 ?[id number] ? Ro ?14:00 ?? RBC TRF Order: ?ABO/RH ? O POS ?Antibody Screen ?N eg Procedure Note 10/08/2017 22 May 1999 [id number] Ro 14:00 RBC TRF Order: ABO/RH O POS Antibody Screen Neg Historical Provider BLOOD BANK PRODUCT ORDERABLE S Performing Organization Address City/State/ZIP Code Phon e Number [facility] - [address] [place], [place] [address] [facility] ECG 12 Lead (05/22/1999 1:38 PM REMELT OPERATOR) Specimen (Source) Anatomical Collection Method Collection Time Re ceived Time Location / / Volume Laterality 05/22/1999 1:38 PM REMELT OPERATOR Narrative [facility] - 05/22/1999 2:27 PM REMELT OPERATOR 22May1999 13:38 VENTRICULAR RATE 43 Marked sinus bradycardia Otherwise normal ECG When compared with ECG of 08-MAY-1998 13 :21, No significant change was found 914^FAYE ??^LACEY Procedure Note Provider, Historical - 09/16/2017Formatt ing of this note might be different from the original. [id number] 13:38 VENTRICULAR RATE 43 Marked sinus bradycardia Otherwise normal ECG When compared with ECG of 08-MAY-1998 13 :21, No significant change was found 914^FAYE PETTIT^LACEY Historical Provider ECG ORDERABLES Performing Organization Address City/State/ZIP Code Phon e Number [facility] [address] [place] [address], [place] documented in this encounter Visit Diagnoses Not on filedocumented in this encounter
--- OUTSIDE RECORDS SUMMARY | 2022-05-17 19:18 | XMS_ITS ---
:1955 Author Organization [facility] Address [address] [place] [address] Care Team Providers Name Role Phone Elsewhere, Pcp Primary Care Provider Unavailable Trans[facility] ([place] [place]2018Marked as Inactive on 2Reason: Temporarily too Sick Kidney CoordinatorPatricia Dick R.N., C.C.T.C. Jtf: [phone]: [email or web address] Scores Score Value Updated Exceptions/Reaso ns CPRA 0 04/15/2020 EPTS (Calc) 76 05/17/2022 Sycuan Organ Diagnosis Organ Primary Contributory Kidney Calcineurin Inhibitor Nephrotoxicity Infection History Noted Survival Infection Treatment Organism Resolved 01/21/2022 Pneumonia Aspergillus (HCC) 12/10/2021 Infection Respiratory Lower 12/10/2021 Infection Cytomegalovirus (HCC) 06/12/2021 Acute Bronchiolitis Due To Other Specified Organisms 06/12/2021 Colitis Cytomegalovirus (HCC) Care Team Name Role Phone Fax Email Patricia Garcia Kidney Coordinator [phone] Sasha garcias.Olena Dick R.N., [email or web address] C.C.T.CDemetrius Martinez, Transplant Light Cleaner [phone] Michelle.Anjana Tomlin [email or web address] Santana Ramirez M.D. Referring Provider [phone] N/ A Milad Bennett M.D. Transplant Surgeon [phone] Trudy [email or web address] Events Pre-Transplant Referred: 02/11/2018 Evaluation began: 02/17/2018 Committee: 04/01/2018 Center waitlisted: 04/07/2018 Dialysis History Dialysis History Start End Type Comments Center 06/01/2021 Hemo ESRD [facility] Dialysis Center Information Center Phone Fax Address ESRD [facility] Dialysis [address] [facility] [phone]
--- OUTSIDE RECORDS SUMMARY | 2022-05-17 19:18 | XMS_ITS | Encounter Summary ---
:1955 Author Organization [facility] Address [address] [place] [address] Care Team Providers Name Role Phone Unavailable [...] Date Recorded Male 05/16/2020 4:27 PM PEST CONTROL SERVICE TECHNICIAN documented as of this encounter Plan of Treatment Upcoming Encounters Date Type Specialty Care Team Description 05/22/2022 Appointment Laboratory Medicine Angélica Granger P.A.-C. [address] [place] [phone] 05/23/2022 Clinical Admitting/Central Communication Scheduling 05/27/2022 Comprehensive Visit Orthopedic Surgery Markus Sams M.D., Ph.D. [address] [place] [phone] 05/29/2022 Office Visit Otorhinolaryngology Dex Matta APRN, C.N.P., M.S.N. [address] [place] [phone] 05/29/2022 Office Visit Otorhinolaryngology Nadeem Maradiaga, PMaryanne., M.S. [address] [place] [phone] 05/31/2022 Appointment Radiology Guilherme Matt, RASTA, Jennifer., M.S. [address] [place] [phone] 06/05/2022 Appointment Laboratory Medicine Angélica Granger P.A.-C. [address] [place] [phone] 06/19/2022 Appointment Laboratory Medicine Angélica Granger P.A.-C. [address] [place] [phone] 07/03/2022 Appointment Laboratory Medicine Angélica Granger P.A.-C. [address] [place] [phone] 07/17/2022 Appointment Laboratory Medicine Angélica Granger P.A.-C. [address] [place] [phone] 07/31/2022 Appointment Laboratory Medicine Angélica Granger P.A.-C. [address] [place] [phone] 08/14/2022 Appointment Laboratory Medicine Angélica Granger P.A.-C. [address] [place] [phone] 08/28/2022 Appointment Laboratory Medicine Angélica Granger P.A.-C. [address] [place] [phone] documented as of this encounter Procedures Procedure Name Priority Date/Time Associated Comments Diagnosis IR PERCUTANEOUS Routine 05/29/1999 9:21 Results f or this TRANSHEPATIC BILIARY AM PEST CONTROL SERVICE TECHNICIAN procedu re are in DRAIN EXCHANGE the results section. PREPARE PLATELETS Routine 05/26/1999 12:16 Result s for this PM PEST CONTROL SERVICE TECHNICIAN procedure are i n the results section. DX CHEST PORTABLE 1 VIEW Routine 05/26/1999 11:29 Results for this AM PEST CONTROL SERVICE TECHNICIAN procedure are i n the results section. ECG Routine 05/26/1999 7:35 Results for this AM PEST CONTROL SERVICE TECHNICIAN procedure are i n the results section. X-RAY REPLACE Routine 05/26/1999 5:32 Results f or this AM PEST CONTROL SERVICE TECHNICIAN procedure are i n the results section. US ABDOMEN COMPLETE WITH Routine 05/25/1999 4:12 Results for this LIVER DOPPLER PM PEST CONTROL SERVICE TECHNICIAN procedure are in the results section. ECG Routine 05/25/1999 10:23 Results for this AM PEST CONTROL SERVICE TECHNICIAN procedure are i n the results section. DX CHEST PORTABLE 1 VIEW Routine 05/25/1999 10:14 Results for this AM PEST CONTROL SERVICE TECHNICIAN procedure are i n the results section. DX ABDOMEN PORTABLE Routine 05/25/1999 9:24 Resul ts for this ANTERIOR POSTERIOR 1 AM PEST CONTROL SERVICE TECHNICIAN procedu re are in VIEW the results section. HXGENERAL PATHOLOGY Routine 05/25/1999 8:48 Resul ts for this REPORT AM PEST CONTROL SERVICE TECHNICIAN procedure are i n the results section. PREPARE CRYOPRECIPITATE Routine 05/25/1999 7:24 R esults for this AM PEST CONTROL SERVICE TECHNICIAN procedure are i n the results section. PREPARE FRESH FROZEN Routine 05/25/1999 5:22 Resu lts for this PLASMA AM PEST CONTROL SERVICE TECHNICIAN procedure are i n the results section. HXINTRA-OP AUTO TX Routine 05/25/1999 3:50 Result s for this AM PEST CONTROL SERVICE TECHNICIAN procedure are i n the results section. PREPARE PLATELETS Routine 05/25/1999 3:48 Results for this AM PEST CONTROL SERVICE TECHNICIAN procedure are i n the results section. PREPARE RED BLOOD CELLS Routine 05/24/1999 8:30 R esults for this PM PEST CONTROL SERVICE TECHNICIAN procedure are i n the results section. ECG Routine 05/24/1999 8:26 Results for this PM PEST CONTROL SERVICE TECHNICIAN procedure are i n the results section. DX CHEST AP OR PA AND Routine 05/24/1999 7:55 Res ults for this LATERAL 2 VIEWS PM PEST CONTROL SERVICE TECHNICIAN procedure ar e in the results section. documented in this encounter Results IR Percutaneous Transhepatic Biliary Drain Exchange (05/29/1999 9:21 AM PEST CONTROL SERVICE TECHNICIAN) Anatomical Region Laterality Modality Abdomen N/A X-Ray Angiography Specimen (Source) Anatomical Collection Method Collection Time Re ceived Time Location / / Volume Laterality 05/29/1999 9:21 AM PEST CONTROL SERVICE TECHNICIAN Narrative 05/29/1999 9:23 AM PEST CONTROL SERVICE TECHNICIAN 29-May-1999 09:21:00 ??Exam: V&IRAD BILIARY TUBE CHECK Indications: fl. time 3.0 min ORIGINAL REPORT - 29-May-1999 09:23:00 Tube cholangiogram shows patent duct-to- duct anastomosis. The intra hepatic ducts and common hepatic duct of the donor are normal. There is prompt flow of contrast material via the [place] distal common bile duct into the duodenum. [...] prompt flow of contrast material via the [place] distal common bile duct into the duodenum. There is fairly easy reflux into the pancreatic ductal system. CON 60%, 50cc Electronically signed by: Janette Benavidez MD. [id number] 29-May-1999 09:2 3 Nicholas PRICE IR PROCEDURES Prepare platelets (05/26/1999 12:16 PM PEST CONTROL SERVICE TECHNICIAN) Specimen Anatomical Collection Method Collection Time Receive d Time (Source) Location / / Volume Laterality 05/26/1999 12:16 05/26/1999 4:39 PM PEST CONTROL SERVICE TECHNICIAN PM PEST CONTROL SERVICE TECHNICIAN Narrative [facility] - 05/26/1999 12:16 PM PEST CONTROL SERVICE TECHNICIAN 26 May 1999 ?[id number] ?Ro ?12:16 ?? Platelet TRF Order: ?Blood Component ?P latelets, Pooled ?Issued ? 26 May 1999 ?Transfused Unit Id ? [id number] Procedure Note 10/08/2017 26 May 1999 [id number] Ro 12:16 Platelet TRF Order: Blood Component Platelets, Pooled Issued 26 May 1999 Transfused Unit Id [id number] Historical Provider BLOOD BANK PRODUCT ORDERABLE S Performing Organization Address City/State/ZIP Code Phon e Number [facility] - [address] [place], [place] [address] [facility] DX Chest Portable 1 View (05/26/1999 11:29 AM PEST CONTROL SERVICE TECHNICIAN) Anatomical Region Laterality Modality Chest N/A Radiographic Imaging Specimen (Source) Anatomical Collection Method Collection Time Re ceived Time Location / / Volume Laterality 05/26/1999 11:29 AM PEST CONTROL SERVICE TECHNICIAN Narrative 05/27/1999 10:56 AM PEST CONTROL SERVICE TECHNICIAN 26-May-1999 11:29:00 ??Exam: Portable-Chest Indications: rt cvp line placement ORIGINAL REPORT - 26-May-1999 11:35:00 Right CVC tip in high SVC. No pneumothor ax. Lungs clear. Electronically signed by: ?? Lynn Tejada [phone] ([id number]) 26-May-19 99 11:35 I have reviewed the films/images and agr ee with the above interpretation. Electronically signed by: ?? Aly iKrby MD. ??[id number] 27-May-1999 10:5 6 Procedure Note Sandra Kirby M.D. - 09/29/2017Fo rmatting of this note might be different from the original. 26-May-1999 11:29:00 Exam: Portable-Ches t Indications: rt cvp line placement ORIGINAL REPORT - 26-May-1999 11:35:00 Right CVC tip in high SVC. No pneumothor ax. Lungs clear. Electronically signed by: Lynn Tejada [phone] ([id number]) 26-May-19 99 11:35 I have reviewed the films/images and agr ee with the above interpretation. Electronically signed by: Aly Kirby MD. [id number] 27-May-1999 10:56 Marcial Hickey M.D. IMG DIAGNOSTIC IMAGING PROCE [facility] ECG 12 Lead (05/26/1999 7:35 AM [facility]) Specimen (Source) Anatomical Collection Method Collection Time Re ceived Time Location / / Volume Laterality 05/26/1999 7:35 AM [facility] RADIOLOGY SYSTEM - 05/26/1999 9:09 AM [facility] [id number] 07:35 VENTRICULAR RATE 60 Normal sinus rhythm Normal ECG When compared with ECG of 25-MAY-1999 10 :23, Vent. rate has decreased 902^FAYE ??^LACEY Procedure Note Provider, Historical - 09/16/2017Formatt ing of this note might be different from the original. [id number] 07:35 VENTRICULAR RATE 60 Normal sinus rhythm Normal ECG When compared with ECG of 25-MAY-1999 10 :23, Vent. rate has decreased 902^FAYE PETTIT^LACEY Historical Provider ECG ORDERABLES Performing Organization Address City/State/ZIP Code Phon e Number HX [facility] RADIOLOGY SYSTEM [address] [place] [address], U SA X-ray Replace (05/26/1999 5:32 AM PEST CONTROL SERVICE TECHNICIAN) Anatomical Region Laterality Modality N/A Radiographic Imaging Specimen (Source) Anatomical Collection Method Collection Time Re ceived Time Location / / Volume Laterality 05/26/1999 5:32 AM PEST CONTROL SERVICE TECHNICIAN Narrative 05/26/1999 8:01 AM PEST CONTROL SERVICE TECHNICIAN 26-May-1999 05:32:00 ??Exam: X-ray Replace Indications: day [...] Abdomen and Abdomen Doppler (05/25/1999 4:12 PM PEST CONTROL SERVICE TECHNICIAN) Anatomical Region Laterality Modality Abdomen N/A Ultrasound Specimen (Source) Anatomical Collection Method Collection Time Re ceived Time Location / / Volume Laterality 05/25/1999 4:12 PM PEST CONTROL SERVICE TECHNICIAN Narrative 05/25/1999 4:31 PM PEST CONTROL SERVICE TECHNICIAN 25-May-1999 16:12:00 ??Exam: US Abd Cmpl with [...] PROCEDURES ECG 12 Lead (05/25/1999 10:23 AM PEST CONTROL SERVICE TECHNICIAN) Specimen (Source) Anatomical Collection Method Collection Time Re ceived Time Location / / Volume Laterality 05/25/1999 10:23 AM [facility] RADIOLOGY SYSTEM - 05/25/1999 11:34 AM [facility] [id number] 10:23 VENTRICULAR RATE 108 Sinus tachycardia Possible Inferior infarct When compared with ECG of 24-MAY-1999 20 :26, Vent. rate has increased BY ??60 BPM Borderline criteria for Inferior infarct are now present QT has lengthened 9999^FAYE ??^LACEY Procedure Note Provider, Historical - 09/16/2017Formatt ing of this note might be different from the original. [id number] 10:23 VENTRICULAR RATE 108 Sinus tachycardia Possible Inferior infarct When compared with ECG of 24-MAY-1999 20 :26, Vent. rate has increased BY 60 BPM Borderline criteria for Inferior infarct are now present QT has lengthened 9999^FAYE PETTIT^LACEY Historical Provider ECG ORDERABLES Performing Organization Address City/State/ZIP Code Phon e Number HX [facility] RADIOLOGY SYSTEM [address] [place] [address], U SA DX Chest Portable 1 View (05/25/1999 10:14 AM PEST CONTROL SERVICE TECHNICIAN) Anatomical Region Laterality Modality Chest N/A Radiographic Imaging Specimen (Source) Anatomical Collection Method Collection Time Re ceived Time Location / / Volume Laterality 05/25/1999 10:14 AM PEST CONTROL SERVICE TECHNICIAN Narrative 05/25/1999 10:34 AM PEST CONTROL SERVICE TECHNICIAN 25-May-1999 10:14:00 ??Exam: Portable-Chest Indications: POST-LIVER TRANSPLANT ORIGINAL REPORT - 25-May-1999 10:34:00 Tip of the SG catheter is in the LPA. Thao ngs are clear. Tubes and lines. Electronically signed by: ?? Hemant Pratt ?[id number] 25-May-1999 1 0:34 Procedure Note Pedro Pratt M.D. - 09/29/2017Form atting of this note might be different from the original. 25-May-1999 10:14:00 Exam: Portable-Ches t Indications: POST-LIVER TRANSPLANT ORIGINAL REPORT - 25-May-1999 10:34:00 Tip of the SG catheter is in the LPA. Thao ngs are clear. Tubes and lines. Electronically signed by: Hemant Pratt MD [id number] 25-May-1999 10:34 Marcial Hickey M.D. IMG DIAGNOSTIC IMAGING PROCE DURES DX Abdomen Portable Anterior Posterior 1 View (05/25/1999 9:24 AM PEST CONTROL SERVICE TECHNICIAN) Anatomical Region Laterality Modality Abdomen N/A Radiographic Imaging Specimen (Source) Anatomical Collection Method Collection Time Re ceived Time Location / / Volume Laterality 05/25/1999 9:24 AM PEST CONTROL SERVICE TECHNICIAN Narrative 05/28/1999 8:55 AM PEST CONTROL SERVICE TECHNICIAN 25-May-1999 09:24:00 ??Exam: Portable-Abdomen Indications: Liver transplant [...] purposes. Electronically signed by: Roe Kirkpatrick M.D. [id number] 28-May-1999 08 :55 Leonid Chen M.D. IMG DIAGNOSTIC IMAGING PROCE [facility] Pathology Report (05/25/1999 8:48 AM PEST CONTROL SERVICE TECHNICIAN) Specimen Anatomical Collection Method Collection Time Receive d Time (Source) Location / / Volume Laterality 05/25/1999 8:48 AM 9 8:48 PEST CONTROL SERVICE TECHNICIAN AM PEST CONTROL SERVICE TECHNICIAN Narrative [facility] - 05/25/1999 8:48 AM PEST CONTROL SERVICE TECHNICIAN [id number] General Biopsy Requested By: ? Leonid Chen M.D. ? ([id number]) ?? TISSUE DESCRIPTION: ?? Recipient's hepatectomy specimen (A2 --RL liver needle bx, 0.9 x 0.6 x 0.6 cm; A3--LL liver ?? needle bx, 1.1 cm; B1,B2--RL liver w edge specimens; B3,B4--LL liver wedge specimens; D1-- ?? recipient gallbladder); A1--donor li gerry wedge bx; C1--donor gallbladder. ?? [id number] A1, A2, A3, B1, B2, B3, B [...] does not contain any sto stu. ?? [id number] ?Al Barlow M.D.:rxc Procedure Note 09/12/2017 [id number] General Biopsy Requested By: Leonid Chen M.D. ([id number]) TISSUE DESCRIPTION: Recipient's hepatectomy specimen (A2--R L liver needle bx, 0.9 x 0.6 x 0.6 cm; A3--LL liver needle bx, 1.1 cm; B1,B2--RL liver wedg e specimens; B3,B4--LL liver wedge specimens; D1-- recipient gallbladder); A1--donor liver wedge bx; C1--donor gallbladder. [id number] A1, A2, A3, B1, B2, B3, B4, [...] and does not contain any stones . [id number] Al Barlow M.D.:rxc Leonid Chen M.D. LAB PATHOLOGY/CYTOLOGY ORDER OSMEL Performing Organization Address City/State/ZIP Code Phon e Number [facility] - [address] [place], [place] [address] [facility] Prepare cryoprecipitate (05/25/1999 7:24 AM PEST CONTROL SERVICE TECHNICIAN) Specimen Anatomical Collection Method Collection Time Receive d Time (Source) Location / / Volume Laterality 05/25/1999 7:24 AM 9 8:18 PEST CONTROL SERVICE TECHNICIAN AM PEST CONTROL SERVICE TECHNICIAN Narrative [facility] - [facility] - 05/25/1999 7:24 AM PEST CONTROL SERVICE TECHNICIAN 25 May 1999 ?[id number] ?Ro ?07:24 ?? Cryo TRF Order: ?Blood Component ?C ryoprecipitate, Pooled ?Issued ? 25 May 1999 ?Transfused Unit Id ? [id number] Procedure Note 10/08/2017 25 May 1999 [id number] Ro 07:24 Cryo TRF Order: Blood Component Cryoprecipitate, Pooled Issued 25 May 1999 Transfused Unit Id [id number] Historical Provider BLOOD BANK PRODUCT ORDERABLE S Performing Organization Address City/State/[facility] Phon e Number [facility] - [address] [place], [place] [address] [facility] Prepare fresh frozen plasma (05/25/1999 5:22 AM PEST CONTROL SERVICE TECHNICIAN) Specimen Anatomical Collection Method Collection Time Receive d Time (Source) Location / / Volume Laterality 05/25/1999 5:22 AM 9 7:26 PEST CONTROL SERVICE TECHNICIAN AM PEST CONTROL SERVICE TECHNICIAN Narrative [facility] - 05/25/1999 5:22 AM PEST CONTROL SERVICE TECHNICIAN 25 May 1999 ?[id number] ?Ro ?05:22 ?? FFP TRF Order: ?Blood Component ?F FP, Thawed ?Issued ? 25 May 1999 ?Transfused Unit Id ? 99M [id number]/1 ?Blood Component ?F FP, Thawed ?Issued ? 25 May 1999 ?Transfused Unit Id ? 99M 34214/2 ?Blood Component ?F FP, Thawed ?Issued ? 25 May 1999 ?Transfused Unit Id ? 99M 67979/2 ?Blood Component ?F FP, Thawed ?Issued ? 25 May 1999 ?Transfused Unit Id ? 99M 38169/2 ?Blood Component ?F FP, Thawed ?Issued ? 25 May 1999 ?Transfused Unit Id ? 99M 08798/2 ?Blood Component ?F FP, Thawed ?Issued ? 25 May 1999 ?Transfused Unit Id ? 99M 72708/2 Procedure Note 10/08/2017 25 May 1999 [id number] Ro 05:22 FFP TRF Order: Blood Component FFP, Thawed Issued 25 May 1999 Transfused Unit Id [id number] Blood Component FFP, Thawed Issued 25 May 1999 Transfused Unit Id [id number] Blood Component FFP, Thawed Issued 25 May 1999 Transfused Unit Id [id number] Blood Component FFP, Thawed Issued 25 May 1999 Transfused Unit Id [id number] Blood Component FFP, Thawed Issued 25 May 1999 Transfused Unit Id [id number] Blood Component FFP, Thawed Issued 25 May 1999 Transfused Unit Id [id number] Historical Provider BLOOD BANK PRODUCT ORDERABLE S Performing Organization Address City/State/ZIP Code Phon e Number [facility] - [address] [place], [place] [address] [facility] HX intra-Op Auto Tx (05/25/1999 3:50 AM PEST CONTROL SERVICE TECHNICIAN) Specimen Anatomical Collection Method Collection Time Receive d Time (Source) Location / / Volume Laterality 05/25/1999 3:50 AM 9 9:29 PEST CONTROL SERVICE TECHNICIAN AM PEST CONTROL SERVICE TECHNICIAN Narrative [facility] - [facility] - 05/25/1999 3:50 AM PEST CONTROL SERVICE TECHNICIAN 25 May 1999 ?[id number] ?Ro ?03:50 ?? Intra-op Auto TRF: ?Blood Component ?R BC, Intraoperatively ?Salvaged Liver Transplant ?Blood ?Issued ? 25 May 1999 ?Transfused Unit Id ? [id number] ?Blood Component ?R BC, Intraoperatively ?Salvaged Liver Transplant ?Blood ?Issued ? 25 May 1999 ?Transfused Unit Id ? [id number] ?Blood Component ?R BC, Intraoperatively ?Salvaged Liver Transplant ?Blood ?Issued ? 25 May 1999 ?Transfused Unit Id ? [id number] ?Blood Component ?R BC, Intraoperatively ?Salvaged Liver Transplant ?Blood ?Issued ? 25 May 1999 ?Transfused Unit Id ? [id number] Procedure Note 10/08/2017 25 May 1999 [id number] Ro 03:50 Intra-op Auto TRF: Blood Component RBC, Intraoperatively Salvaged Liver Transplant Blood Issued 25 May 1999 Transfused Unit Id [id number] Blood Component RBC, Intraoperatively Salvaged Liver Transplant Blood Issued 25 May 1999 Transfused Unit Id [id number] Blood Component RBC, Intraoperatively Salvaged Liver Transplant Blood Issued 25 May 1999 Transfused Unit Id [id number] Blood Component RBC, Intraoperatively Salvaged Liver Transplant Blood Issued 25 May 1999 Transfused Unit Id [id number] Historical Provider LAB HISTORICAL ORDERS Performing Organization Address City/State/[facility] Phon e Number [facility] - [address] [place], [place] [address] [facility] Prepare platelets (05/25/1999 3:48 AM PEST CONTROL SERVICE TECHNICIAN) Specimen Anatomical Collection Method Collection Time Receive d Time (Source) Location / / Volume Laterality 05/25/1999 3:48 AM 9 8:18 PEST CONTROL SERVICE TECHNICIAN AM PEST CONTROL SERVICE TECHNICIAN Narrative [facility] - [facility] - 05/25/1999 3:48 AM PEST CONTROL SERVICE TECHNICIAN 25 May 1999 ?[id number] ?Ro ?03:48 ?? Platelet TRF Order: ?Blood Component ?P latelets, Leukoreduced ?Apheresis ?Issued ? 25 May 1999 ?Transfused Unit Id ? [id number] ?Blood Component ?P latelets, Leukoreduced ?Apheresis ?Issued ? 25 May 1999 ?Transfused Unit Id ? 99M 61829/1 ?Blood Component ?P latelets, Pooled ?Issued ? 25 May 1999 ?Transfused Unit Id ? [id number] Procedure Note 10/08/2017 25 May 1999 [id number] Ro 03:48 Platelet TRF Order: Blood Component Platelets, Leukoreduced Apheresis Issued 25 May 1999 Transfused Unit Id [id number] Blood Component Platelets, Leukoreduced Apheresis Issued 25 May 1999 Transfused Unit Id [id number] Blood Component Platelets, Pooled Issued 25 May 1999 Transfused Unit Id [id number] Historical Provider BLOOD BANK PRODUCT ORDERABLE S Performing Organization Address City/State/ZIP Code Phon e Number [facility] - [address] [place], [place] [address] [facility] Prepare Red Blood Cells (05/24/1999 8:30 PM PEST CONTROL SERVICE TECHNICIAN) Specimen Anatomical Collection Method Collection Time Receive d Time (Source) Location / / Volume Laterality 05/24/1999 8:30 PM 05/28/199 9 8:10 PEST CONTROL SERVICE TECHNICIAN AM PEST CONTROL SERVICE TECHNICIAN Narrative [facility] - 05/24/1999 8:30 PM PEST CONTROL SERVICE TECHNICIAN 24 May 1999 ?[id number] ? Ro ?20:30 ?? RBC TRF Order: ?ABO/RH ? O POS ?Antibody Screen ?N eg ?Blood Component ?R BC, -1 ?Issued ? 25 May 1999 ?Transfused Unit Id ? [id number] ?Blood Component ?R BC, -1 ?Issued ? 25 May 1999 ?Transfused Unit Id ? [id number] ?Blood Component ?R BC, -1 ?Issued ? 25 May 1999 ?Transfused Unit Id ? [id number] ?Blood Component ?R BC, -1 ?Issued ? 25 May 1999 ?Transfused Unit Id ? [id number] ?Blood Component ?R BC, -1 ?Issued ? 25 May 1999 ?Transfused Unit Id ? [id number] ?Blood Component ?R BC, -1 ?Issued ? 25 May 1999 ?Transfused Unit Id ? [id number] ?Blood Component ?R BC, -1 ?Issued ? 25 May 1999 ?Transfused Unit Id ? [id number] ?Blood Component ?R BC, -1 ?Issued ? 25 May 1999 ?Transfused Unit Id ? [id number] ?Blood Component ?R BC, -1 ?Issued ? 25 May 1999 ?Transfused Unit Id ? [id number] ?Blood Component ?R BC, -1 ?Issued ? 25 May 1999 ?Transfused Unit Id ? [id number] ?Blood Component ?R BC, -1 ?Issued ? 25 May 1999 ?Transfused Unit Id ? [id number] ?Blood Component ?R BC, -1 ?Issued ? 26 May 1999 ?Transfused Unit Id ? [id number] ?Blood Component ?R BC, -1 ?Issued ? 26 May 1999 ?Transfused Unit Id ? [id number] Procedure Note 10/08/2017 24 May 1999 [id number] Ro 20:30 RBC TRF Order: ABO/RH O POS Antibody Screen Neg Blood Component RBC, -1 Issued 25 May 1999 Transfused Unit Id [id number] Blood Component RBC, -1 Issued 25 May 1999 Transfused Unit Id [id number] Blood Component RBC, -1 Issued 25 May 1999 Transfused Unit Id [id number] Blood Component RBC, -1 Issued 25 May 1999 Transfused Unit Id [id number] Blood Component RBC, -1 Issued 25 May 1999 Transfused Unit Id [id number] Blood Component RBC, -1 Issued 25 May 1999 Transfused Unit Id [id number] Blood Component RBC, -1 Issued 25 May 1999 Transfused Unit Id [id number] Blood Component RBC, -1 Issued 25 May 1999 Transfused Unit Id [id number] Blood Component RBC, -1 Issued 25 May 1999 Transfused Unit Id [id number] Blood Component RBC, -1 Issued 25 May 1999 Transfused Unit Id [id number] Blood Component RBC, -1 Issued 25 May 1999 Transfused Unit Id [id number] Blood Component RBC, -1 Issued 26 May 1999 Transfused Unit Id [id number] Blood Component RBC, -1 Issued 26 May 1999 Transfused Unit Id [id number] Historical Provider BLOOD BANK PRODUCT ORDERABLE S Performing Organization Address City/State/ZIP Code Phon e Number [facility] - [address] [place], [place] [address] [facility] ECG 12 Lead (05/24/1999 8:26 PM PEST CONTROL SERVICE TECHNICIAN) Specimen (Source) Anatomical Collection Method Collection Time Re ceived Time Location / / Volume Laterality 05/24/1999 8:26 PM PEST CONTROL SERVICE TECHNICIAN [facility] RADIOLOGY SYSTEM - 05/24/1999 10:07 PM PEST CONTROL SERVICE TECHNICIAN [id number] 20:26 VENTRICULAR RATE 48 Marked sinus bradycardia Otherwise normal ECG When compared with ECG of 22-MAY-1999 13 :38, No significant change was found 91Jaxon^FAYE ??^LACEY Procedure Note Provider, Historical - 09/16/2017Formatt ing of this note might be different from the original. [id number] 20:26 VENTRICULAR RATE 48 Marked sinus bradycardia Otherwise normal ECG When compared with ECG of 22-MAY-1999 13 :38, No significant change was found Citlaly^FAYE PETTIT^LACEY Historical Provider ECG ORDERABLES Performing Organization Address City/State/ZIP Code Phon e Number [facility] RADIOLOGY SYSTEM [address] [place] [address], U SA DX Chest AP or PA and Lateral 2 Views (05/24/1999 7:55 PM PEST CONTROL SERVICE TECHNICIAN) Anatomical Region Laterality Modality Chest N/A Radiographic Imaging Specimen (Source) Anatomical Collection Method Collection Time Re ceived Time Location / / Volume Laterality 05/24/1999 7:55 PM PEST CONTROL SERVICE TECHNICIAN Narrative 05/25/1999 8:21 AM PEST CONTROL SERVICE TECHNICIAN 24-May-1999 19:55:00 ??Exam: Chest-- 2 Views Indications: pre-op olt ORIGINAL REPORT - 24-May-1999 21:16:00 Negative chest. Electronically signed by: ?? Saeed Lerma M.D. [id number]) 24-May-19 99 21:16 I have reviewed the films/images and agr ee with the above interpretation. Electronically signed by: ?? Hemant Pratt ?[id number] 25-May-1999 0 8:21 Procedure Note Pedro Pratt M.D. - 09/29/2017Form atting of this note might be different from the original. 24-May-1999 19:55:00 Exam: Chest-- 2 Vie ws Indications: pre-op olt ORIGINAL REPORT - 24-May-1999 21:16:00 Negative chest. Electronically signed by: Saeed Lerma M.D. [id number] 24-May-19 99 21:16 I have reviewed the films/images and agr ee with the above interpretation. Electronically signed by: Hemant Pratt MD [id number] 25-May-1999 08:21 Marcial Hickey M.D. IMAutumn DIAGNOSTIC IMAGING PROCE DURES documented in this encounter Visit Diagnoses Not on filedocumented in this encounter
--- OUTSIDE RECORDS SUMMARY | 2022-05-17 19:18 | XMS_ITS | Encounter Summary ---
:1955 Author Organization [facility] Address [address] [place] [address] Care Team Providers Name Role Phone Elsewhere, Pcp Primary Care Provider Unavailable Encounter Details Date Type Department Care Team Description 04/29/2000 Abstract [facility] and Clinical CoordinatorZuleika [facility] [place], [place] [address] [place] [address] Social History Tobacco Use Types Packs/Day [...] Laboratory Medicine Angélica Granger P.A.-C. [address] [place] [phone] 05/23/2022 Clinical Admitting/Central Communication Scheduling 05/27/2022 Comprehensive Visit Orthopedic Surgery Markus Sams M.D., Ph.D. [address] [place] [phone] 05/29/2022 Office Visit Otorhinolaryngology Dex Matta APRN, C.N.P., M.S.N. [address] [place] [phone] 05/29/2022 Office Visit Otorhinolaryngology Nadeem Maradiaga, PEdgar.Marie., M.S. [address] [place] [phone] 05/31/2022 Appointment Radiology Guilherme Matt MPAS, PMaryanne., M.S. [address] [place] [phone] 06/05/2022 Appointment Laboratory Medicine Angélica Granger P.A.-C. [address] [place] [phone] 06/19/2022 Appointment Laboratory Medicine Angélica Granger P.A.-C. [address] [place] [phone] 07/03/2022 Appointment Laboratory Medicine Angélica Granger P.A.-C. [address] [place] [phone] 07/17/2022 Appointment Laboratory Medicine Angélica Granger P.A.-C. [address] [place] [phone] 07/31/2022 Appointment Laboratory Medicine Angélica Granger P.A.-C. [address] [place] [phone] 08/14/2022 Appointment Laboratory Medicine Angélica Granger P.A.-C. [address] [place] [phone] 08/28/2022 Appointment Laboratory Medicine Angélica Granger P.A.-C. 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
--- OUTSIDE RECORDS SUMMARY | 2022-05-17 19:18 | XMS_ITS | Encounter Summary ---
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 [address] [place] [phone] 05/23/2022 Clinical Admitting/Central Communication Scheduling 05/27/2022 Comprehensive Visit Orthopedic Surgery Markus Sams M.D., Ph.D. [address] [place] [phone] 05/29/2022 Office Visit Otorhinolaryngology Dex Matta APRN, C.N.P., M.S.N. [address] [place] [phone] 05/29/2022 Office Visit Otorhinolaryngology Nadeem Maradiaga, PEdgar.Marie., M.S. [address] [place] [phone] 05/31/2022 Appointment Radiology Guilherme Matt MPAS, PMaryanne., M.S. [address] [place] [phone] 06/05/2022 Appointment Laboratory Medicine Angélica Granger P.A.-C. [address] [place] [phone] 06/19/2022 Appointment Laboratory Medicine Angélica Granger P.A.-C. [address] [place] [phone] 07/03/2022 Appointment Laboratory Medicine Angélica Granger P.A.-C. [address] [place] [phone] 07/17/2022 Appointment Laboratory Medicine Angélica Granger P.A.-C. [address] [place] [phone] 07/31/2022 Appointment Laboratory Medicine Angélica Granger P.A.-C. [address] [place] [phone] 08/14/2022 Appointment Laboratory Medicine Angélica Granger P.A.-C. [address] [place] [phone] 08/28/2022 Appointment Laboratory Medicine Angélica Granger P.A.-C. [address] [place] [phone] documented as of this encounter Visit Diagnoses Not on filedocumented in this encounter Additional Health Concerns Infection Onset Date Last Indicated Resolved Time COVID19 Pending 12/13/2019 12/13/2019 12/14/2019 11:03 AM CDT COVID19 Pending 01/26/2020 01/27/2020 01/28/2020 12:12 AM CDT documented as of this encounter Care Teams Fuel Buyer Relationship Specialty Start Date End Date Elsewhere, Pcp PCP - General Family Medicine 07/29/17 [facility] - Laboratory Medicine 04/12/[address] [address] documented as of this encounter
[2022-05-17 19:29] LABS: PCR FLU A Negative PCR FLU A (Negative); PCR FLU B Negative PCR FLU B (Negative); PCR RSV Negative PCR RSV (Negative)
[2022-05-17 19:37] LABS: SARS PCR* Negative SARS-CoV-2 (Negative)
[2022-05-17 20:10] LABS: Appearance Urine Clear (Clear); Bilirubin Urine Negative (Negative); Blood Urine Trace-lysed (Negative); Color Urine Yellow (Yellow); Glucose Urine Negative (Negative); Ketones Urine Negative (Negative); Leukocyte Esterase Urine Negative (Negative); Nitrite Urine Negative (Negative); Protein Urine 1+ (Negative); Urobilinogen Urine 0.2 (0.2-1.0)
[2022-05-17 20:25] VITALS: BP 158/89; PULSE 70; RESP 20; O2SAT 98
[2022-05-17 20:28] LABS: RBC Urine 0-2 (0-2); WBC Urine 0-2 (0-5)
== END 2022-05-17 20:29 | disposition home or self-care (01) ==
PROVIDERS: Emergency Provider Family Medicine; PCP Surgery
DX: R05.9 Cough, unspecified (principal); B99.9 Unspecified infectious disease
CPT/HCPCS: 36415; 71046; 80048; 80076; 81001; 83605; 84145; 85025; 86140; 87040; 87502; 87634; 87635; 99283; 99284

== ENCOUNTER 2022-07-09 07:18 | Emergency (ER) | payer MEDICARE, BC, SELFPAY ==
[2022-07-09 07:28] VITALS: BP 136/80; PULSE 95; RESP 20; TEMP 38.4; O2SAT 97; BMI 23.6
--- NOTE | 2022-07-09 07:45 | CRLHL7_ITS ---
For Patients: As a result of the Cures Act, medical imaging exams and procedure reports are released immediately into your electronic medical record. You may view this report before your referring provider. If you have questions, please contact your health care provider. Indication: Fever of unknown origin Comparison: Two-view chest May 17, 2022 Technique: PA and lateral views of the chest Findings: There is hyperinflation and chronic interstitial change with increased interstitial markings likely representing bronchial thickening versus pulmonary congestion. There is no dense consolidation, effusion or pneumothorax. The cardiomediastinal silhouette is within normal limits. The bony thorax is grossly intact. Impression: Hyperinflation and chronic interstitial changes with increased interstitial markings which may represent bronchial thickening versus pulmonary edema. No dense consolidation. Dictated by Manuel Alvarenga MD @ 07/09/2022 8:13:29 AM (Electronically Signed)
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
[2022-07-09 07:57] LABS: Appearance Urine Clear (Clear); Bilirubin Urine Negative (Negative); Blood Urine Trace-lysed (Negative); Color Urine Yellow (Yellow); Glucose Urine Negative (Negative); Ketones Urine Negative (Negative); Leukocyte Esterase Urine Negative (Negative); Nitrite Urine Negative (Negative); Protein Urine 2+ (Negative); Specific Gravity Urine 1.015 (1.000-1.030); Urobilinogen Urine 0.2 (0.2-1.0)
[2022-07-09] MEDS: ACETAMINOPHEN 500 MG TABLET 1000 MG PO (08:03)
[2022-07-09 08:08] LABS: RBC Urine 0-2 (0-2); WBC Urine 0-2 (0-5)
[2022-07-09 08:34] LABS: PCR FLU A Negative PCR FLU A (Negative); PCR FLU B Negative PCR FLU B (Negative); PCR RSV Negative PCR RSV (Negative); SARS PCR* POSITIVE SARS-CoV-2 (Negative)
[2022-07-09 08:49] LABS: Lactate* 0.7 mmol/L (0.5-1.9)
[2022-07-09 08:50] LABS: Basophils Absolute Auto 0.02 K/uL (0.00-0.30); Basophils Percent Auto 0.3 % (0.0-3.0); Eosinophils Absolute Auto 0.29 K/uL (0.00-0.50); Eosinophils Percent Auto 4.7 % (0.0-7.0); Hematocrit 29.2 % (37.0-53.0); Hemoglobin* 9.6 gm/dL (13.5-17.5); Immature Granulocytes Abs Auto 0.05 K/uL (0.00-0.30); Immature Granulocytes Pct Auto 0.8 %; Lymphocytes Percent Auto 10.6 % (20-44); Mean Corpuscular HGB Conc 33 gm/dL (32-36); Mean Corpuscular Hemoglobin 33 pg (26-34); Mean Corpuscular Volume 100 fL (80-100); Monocytes Percent Auto 8.3 % (0.0-11.0); Neutrophils Percent Auto 75.3 % (42.0-72.0); Platelet Count* 324 K/uL (140-440); RDW Coefficient of Variation % 13.1 % (11.5-15.5); Red Blood Count 2.93 m/uL (4.30-5.90); White Blood Count* 6.13 K/uL (4.50-11.00)
[2022-07-09 08:52] LABS: Slide Review Reflex No
[2022-07-09 09:11] LABS: Chloride* 100 mmol/L (96-114); Sodium* 128 mmol/L (135-149)
[2022-07-09 09:12] LABS: Potassium* 4.1 mmol/L (3.6-5.1)
[2022-07-09 09:14] LABS: Creatinine* 4.2 mg/dL (0.5-1.5); Est. Creatinine Clearance* 17.07; Estimated Glomerular Filt Rate 15 ml/min
[2022-07-09 09:15] LABS: Blood Urea Nitrogen* 66 mg/dL (7-30); Calcium* 8.2 mg/dL (8.4-10.6); Carbon Dioxide* 20 mmol/L (20-32); Glucose* 122 mg/dL (60-115)
[2022-07-09 09:18] LABS: C Reactive Protein* 4.4 mg/dL (0.5-1.0)
[2022-07-09 09:30] VITALS: BP 124/78; PULSE 81; RESP 18; TEMP 37.8; O2SAT 95
[2022-07-09 10:40] VITALS: TEMP 37.7
[2022-07-09 11:00] VITALS: BP 127/70; PULSE 82; RESP 18; TEMP 37.7
[2022-07-09] MEDS: predniSONE 20 MG TABLET PO (13:21)
== END 2022-07-09 13:26 | disposition home or self-care (01) ==
PROVIDERS: Family Medicine; Emergency Provider Family Medicine; PCP Surgery
DX: U07.1 COVID-19 (principal); Z94.4 Liver transplant status; Z99.2 Dependence on renal dialysis; N18.6 End stage renal disease
CPT/HCPCS: 36415; 71046; 80048; 81003; 81015; 83605; 85025; 86140; 87040; 87502; 87634; 87635; 99283; 99285; A9270; J7050; J7512

== ENCOUNTER 2022-07-11 12:02 | Outpatient (RCR) | payer MEDICARE, BC, SELFPAY ==
--- NOTE | 2022-07-10 15:23 | ONC.NURNOTE ---
afriebrile. denies discomfort. maria de jesus infusion well. SL intact and flushed well. no reddness.
[2022-07-11 12:52] VITALS: BP 118/78; PULSE 66; RESP 16; O2SAT 100
[2022-07-11 14:10] VITALS: BP 126/73; PULSE 61; RESP 16; TEMP 36.6; O2SAT 99
--- NOTE | 2022-07-11 14:34 | PC.NURSE ---
Outpatient-- Pleasant and cooperative patient was given 3rd dose of Remdesivir and tolerated it well. VSS. SL was removed with tip intact. Pt discharged to home ambulatory.
== END 2022-07-11 14:17 | disposition home or self-care (01) ==
LOC: MS OUT 12:02
PROVIDERS: PCP Surgery; Visit Provider Family Medicine
DX: U07.1 COVID-19 (principal)
CPT/HCPCS: 96365; 99211; J7050

== ENCOUNTER 2023-02-14 08:56 | Emergency (ER) | payer MEDICARE, BC, SELFPAY ==
[2023-02-14 09:05] VITALS: BP 119/70; PULSE 82; RESP 18; TEMP 36.8; O2SAT 99; BMI 25.1
[2023-02-14 11:04] VITALS: BP 135/75; PULSE 75; RESP 16; O2SAT 100
--- NOTE | 2023-02-14 11:27 | ED_ITS ---
HPI - General Adult General Date Seen: 02/14/23 Chief complaint: Skin/Abscess/Foreign Body Stated complaint: pain from shingles Time Seen by Provider: 02/14/23 09:31 Source: patient, RN notes reviewed and old records reviewed Mode of arrival: ambulatory Limitations: no limitations History of Present Illness HPI narrative: Patient is a very pleasant 67-year-old gentleman with history of liver transplant, hemodialysis, recent diagnosis of shingles she who comes to the emergency room for evaluation regarding pain. Patient notes that he actually had a rash on his right abdomen is for 8 days when he went to dialysis and it was noted that he had shingles. This was 3 days ago and he was started on antiviral valacyclovir at that time. He notes that he has been trying to use Tylenol for pain a and it really has not helped. He states he is having a hard time sleeping. He notes no vomiting no fever and he is breathing without difficulty. He is limited to 1 g b.i.d. of Tylenol. He does dialysis 3 times a week. Related Data Home Medications Medication Instructions Recorded Confirmed albuterol sulfate 90 mcg/actuation 2 puff inhalation Q6H PRN 03/29/22 08/29/22 aerosol inhaler aspirin 81 mg tablet,delayed 81 mg PO QDAY 03/29/22 08/29/22 release (Adult Low Dose Aspirin) atorvastatin 10 mg tablet 10 mg PO QDAY 03/29/22 08/29/22 azelastine 137 mcg (0.1 %) nasal 1 spray intranasal BID 03/29/22 08/29/22 spray aerosol benzonatate 100 mg capsule 100 mg PO BID PRN 03/29/22 08/29/22 budesonide 0.25 mg/2 mL suspension 0.5 mg inhalation QDAY 03/29/22 08/29/22 for nebulization (Pulmicort) coenzyme Q10 100 mg capsule 100 mg PO QDAY 03/29/22 08/29/22 fluticasone fur. 200 mcg-umeclid 1 inh inhalation QDAY 03/29/22 08/29/22 62.5 mcg-vilant 25 mcg inhalat.powder (Trelegy Ellipta) ipratropium bromide 21 mcg (0.03 2 spray intranasal BID 03/29/22 08/29/22 %) nasal spray lamotrigine 200 mg tablet 200 mg PO BID 03/29/22 08/29/22 (Lamictal) levothyroxine 25 mcg capsule 25 mcg PO QDAY 03/29/22 08/29/22 loratadine 10 mg tablet 10 mg PO QDAY 03/29/22 08/29/22 montelukast 10 mg tablet 10 mg PO QDAY 03/29/22 08/29/22 (Singulair) mycophenolate mofetil 500 mg 500 mg PO Q12H 03/29/22 08/29/22 tablet (CellCept) nifedipine 30 mg tablet,extended 30 mg PO QDAY 03/29/22 08/29/22 release 24 hr (Procardia XL) ondansetron HCl 4 mg tablet 4 mg PO Q8H 03/29/22 08/29/22 prednisone 5 mg tablet 5 mg PO QDAY 03/29/22 08/29/22 sulfamethoxazole 400 1 tab PO BID 03/29/22 08/29/22 mg-trimethoprim 80 mg tablet (Bactrim) tacrolimus 0.5 mg capsule, 1.5 mg PO Q12H 03/29/22 08/29/22 immediate-release (Prograf) torsemide 10 mg tablet 10 mg PO QAM 03/29/22 08/29/22 trazodone 100 mg tablet 100 mg PO QDAY 03/29/22 08/29/22 voriconazole 200 mg tablet (Vfend) 200 mg PO Q12H 03/29/22 08/29/22 Previous Rx's Medication Instructions Recorded hydrocodone 5 mg-acetaminophen 325 1 tab PO Q4-6H PRN pain #20 tabs 04/13/22 mg tablet prednisone 20 mg tablet 20 mg PO BID #10 tabs 07/09/22 gabapentin 100 mg capsule See Rx Instructions .Route 02/14/23 .COMPLEX #20 caps oxycodone 5 mg capsule 5 mg PO QID PRN pain #20 caps 02/14/23 Allergies Allergy/AdvReac Type Severity Reaction Status Date / Time cefixime Allergy Intermediate Diarrhea Verified 08/29/22 14:43 quetiapine Allergy Intermediate Edema Verified 08/29/22 14:43 ciprofloxacin Allergy Unknown Verified 08/29/22 14:43 citalopram Allergy Unknown Verified 08/29/22 14:43 Review of Systems Status of ROS: Reports: 10 or more systems reviewed and unremarkable except as noted in History and below Const: Denies: fever, chills or fatigue ENMT: Denies: neck pain or difficulty swallowing Cardio: Denies: swelling of feet/ankles or shortness of breath with exertion Resp: Denies: shortness of breath or cough GI: Denies: nausea, vomiting or difficulty swallowing Musculo: Denies: neck pain Integ/Breast: Reports: skin tenderness and sores Neuro: Denies: headache or numbness in extremities Endo: Denies: fatigue PFSH PFSH Social History Smoking Status: Former smoker How often do you have a drink containing alcohol: never AUDIT-C Alcohol total score: 0 Non-prescribed substance use: denies use Exam Narrative: Exam Narrative: Patient is a very pleasant 67-year-old male. Alert oriented and nontoxic in appearance. No respiratory distress is noted. He has an erythematous raised rash on the T5 6 distribution on the right trunk. It does wrap around to the front. There are few small areas of scabbing at but they are also some new vesicles noted. Const: Vital Signs, click to edit/add: Vital Signs - 24 hr 02/14/23 09:05 02/14/23 11:04 Temperature 98.2 F Pulse Rate [Right Pulse Oximeter] 82 75 Respiratory Rate 18 16 Blood Pressure [Le ft Upper Arm] 119/70 135/75 Pulse Oximetry 99 100 Oxygen Delivery Me thod Room Air Room Air Documenting provider has reviewed patient's vital signs: yes Course Course Hospital Course: At this time patient is describing worsening rash at daily 11 when actually he should be noting improvement. I would expect normally to find new vesicles this is likely related to his immunosuppression for his past liver transplant. I had the pleasure of speaking to his a member of his liver transplant team. Vital Signs Vital signs: Initial Vital Signs Temperature 98.2 F 02/14/23 09:05 Temperature Source Temporal Artery Scan 02/14/23 09:05 Pulse Rate 82 02/14/23 09:05 Respiratory Rate 18 02/14/23 09:05 Blood Pressure 119/70 02/14/23 09:05 Blood Pressure Mean 86 02/14/23 09:05 Blood Pressure Position Sitting 02/14/23 09:05 Pulse Oximetry 99 02/14/23 09:05 Oxygen Delivery Method Room Air 02/14/23 09:05 Vital Signs Temperature 98.2 F 02/14/23 09:05 Pulse Rate 82 02/14/23 09:05 Respiratory Rate 18 02/14/23 09:05 Blood Pressure 119/70 02/14/23 09:05 Pulse Oximetry 99 02/14/23 09:05 Oxygen Delivery Method Room Air 02/14/23 09:05 Temperature 98.2 F 02/14/23 09:05 Pulse Rate 75 02/14/23 11:04 Respiratory Rate 16 02/14/23 11:04 Blood Pressure 135/75 02/14/23 11:04 Pulse Oximetry 100 02/14/23 11:04 Oxygen Delivery Method Room Air 02/14/23 11:04 Medical Decision Making MDM Narrative Medical decision making narrative: 1. Shingles-at this time patient still has areas of new vesicles. I would recommend continuing on the antiviral. He tells me that they did call in an extra week antiviral medication for him. I do think he needs to be seen by his ID consult or liver transplant team. 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 He is alert and oriented with no fever today. 2. Neuralgia-I will add oxycodone 5 mg 1-2 tabs p.o. Q 4-6 hours p.r.n. pain 20. With sent to pharmacy for him. Prior to his departure we did hear back from [facility] and they do agree with gabapentin. Because he is a dialysis patient, we will put him on gabapentin 100 mg p.o. every other day after dialysis. 3. Disposition-home at this time. Return as needed for worsening symptoms. Medical Records Medical records reviewed: Yes I reviewed the patient's medical records Discharge Plan Discharge Clinical Impression: Liver transplant recipient Shingles Qualifiers: Herpes zoster complications: without complications Qualified Code(s): B02.9 - Zoster without complications Patient Disposition: Home, Self-Care Condition: Unchanged Additional Instructions: I was able to speak to a member of your liver transplant team. They have agreed with the following plan: Continue your antiviral medication. Unfortunately, I see some new vesicles and redness popping up in your rash. The physician I spoke to today will commu nicate with your ID specialist about your shingles. Would recommend follow-up with them next week. For pain I have sent oxycodone which is our narcotic to your pharmacy. Please do not take alcohol or any other sedating medications with this medication especially Ativan or Valium. Transplant team also would like you to start on a medicine called gabapentin which is ordered for you and sent to your pharmacy. Return to the emergency room as needed. Prescriptions: New oxycodone 5 mg capsule 5 mg PO QID PRN (Reason: pain) Qty: 20 0RF Rx Instructions: 1-2 tabs every 4-6 hours p.r.n. pain. gabapentin 100 mg capsule See Rx Instructions .ROUTE .COMPLEX Qty: 20 0RF Rx Instructions: 100 mg orally every other day after dialysis. No Action albuterol sulfate 90 mcg/actuation HFA aerosol inhaler 2 puff inhalation Q6H PRN aspirin [Adult Low Dose Aspirin] 81 mg tablet,delayed release (DR/EC) 81 mg PO QDAY atorvastatin 10 mg tablet 10 mg PO QDAY azelastine 137 mcg (0.1 %) aerosol,spray 1 spray intranasal BID Rx Instructions: administer into each nostril benzonatate 100 mg capsule 100 mg PO BID PRN budesonide [Pulmicort] 0.25 mg/2 mL suspension for nebulization 0.5 mg inhalation QDAY coenzyme Q10 100 mg capsule 100 mg PO QDAY ipratropium bromide 21 mcg (0.03 %) spray,non-aerosol 2 spray intranasal BID Rx Instructions: administer into each nostril lamotrigine [Lamictal] 200 mg tablet 200 mg PO BID levothyroxine 25 mcg capsule 25 mcg PO QDAY loratadine 10 mg tablet 10 mg PO QDAY montelukast [Singulair] 10 mg tablet 10 mg PO QDAY mycophenolate mofetil [CellCept] 500 mg tablet 500 mg PO Q12H nifedipine [Procardia XL] 30 mg tablet extended release 24hr 30 mg PO QDAY ondansetron HCl 4 mg tablet 4 mg PO Q8H prednisone 5 mg tablet 5 mg PO QDAY tacrolimus [Prograf] 0.5 mg capsule 1.5 mg PO Q12H torsemide 10 mg tablet 10 mg PO QAM trazodone 100 mg tablet 100 mg PO QDAY Trelegy Ellipta 200-62.5-25 mcg blister with device 1 inh inhalation QDAY sulfamethoxazole-trimethoprim [Bactrim] 400-80 mg tablet 1 tab PO BID voriconazole [Vfend] 200 mg tablet 200 mg PO Q12H Rx Instructions: administer on empty stomach, at least 1 hour before or after meal(s) prednisone 20 mg tablet 20 mg PO BID Qty: 10 0RF hydrocodone-acetaminophen 5-325 mg tablet 1 tab PO Q4-6H PRN (Reason: pain) Qty: 20 0RF Follow Up/Referrals: Ryan Cole MD [Primary Care Provider] - Stand Alone Forms: [facility] Info Instructions
== END 2023-02-14 11:06 | disposition home or self-care (01) ==
PROVIDERS: Emergency Provider Family Medicine; PCP Surgery
DX: B02.9 Zoster without complications (principal); Z94.4 Liver transplant status
CPT/HCPCS: 99282; 99283; 99284

== ENCOUNTER 2023-02-14 17:55 | Emergency (ER) | payer MEDICARE, BC, SELFPAY ==
[2023-02-14 18:07] VITALS: BP 182/89; PULSE 78; RESP 18; TEMP 36.5; O2SAT 98; BMI 25.1
--- NOTE | 2023-02-14 18:28 | ED.GENADULT ---
HPI - General Adult General Chief complaint: Unspecified Complaint, Adult Stated complaint: Needs IV for shingles Time Seen by Provider: 02/14/23 18:15 History of Present Illness HPI narrative: Patient seen in ED this AM for Shingles infection. Patient has transplant team (liver) and also is dialysis patient. After infectious disease team got word that patient was still having new skin lesions thought that he would probably benefit from IV antiviral medication. He is back in ED to inquire about this possibility. 67-year-old man presenting to the emergency department history of liver transplant, receives renal dialysis and had a newer diagnosis of shingles. Was continued on valacyclovir therapy on ER visit today with the addition of gabapentin and oxycodone. Has been taking valacyclovir 500 mg per his report once daily after being diagnosed with shingles 3 days ago. Symptoms now for 11 days. Began with itching. Today was noted to be evolving new lesions. Apparently spoke to his transplant team who recommended to come back to the emergency department to discuss receiving IV treatment. Clarifying this with patient it sounds as there was further communication between liver transplant and ID following visit in this emergency department. As thought to be having new skin lesions recommendations are to consider for IV treatment. Has not had any fever. Related Data Home Medications Medication Instructions Recorded Confirmed albuterol sulfate 90 mcg/actuation 2 puff inhalation Q6H PRN 03/29/22 08/29/22 aerosol inhaler aspirin 81 mg tablet,delayed 81 mg PO QDAY 03/29/22 08/29/22 release (Adult Low Dose Aspirin) atorvastatin 10 mg tablet 10 mg PO QDAY 03/29/22 08/29/22 azelastine 137 mcg (0.1 %) nasal 1 spray intranasal BID 03/29/22 08/29/22 spray aerosol benzonatate 100 mg capsule 100 mg PO BID PRN 03/29/22 08/29/22 budesonide 0.25 mg/2 mL suspension 0.5 mg inhalation QDAY 03/29/22 08/29/22 for nebulization (Pulmicort) coenzyme Q10 100 mg capsule 100 mg PO QDAY 03/29/22 08/29/22 fluticasone fur. 200 mcg-umeclid 1 inh inhalation QDAY 03/29/22 08/29/22 62.5 mcg-vilant 25 mcg inhalat.powder (Trelegy Ellipta) ipratropium bromide 21 mcg (0.03 2 spray intranasal BID 03/29/22 08/29/22 %) nasal spray lamotrigine 200 mg tablet 200 mg PO BID 03/29/22 08/29/22 (Lamictal) levothyroxine 25 mcg capsule 25 mcg PO QDAY 03/29/22 08/29/22 loratadine 10 mg tablet 10 mg PO QDAY 03/29/22 08/29/22 montelukast 10 mg tablet 10 mg PO QDAY 03/29/22 08/29/22 (Singulair) mycophenolate mofetil 500 mg 500 mg PO Q12H 03/29/22 08/29/22 tablet (CellCept) nifedipine 30 mg tablet,extended 30 mg PO QDAY 03/29/22 08/29/22 release 24 hr (Procardia XL) ondansetron HCl 4 mg tablet 4 mg PO Q8H 03/29/22 08/29/22 prednisone 5 mg tablet 5 mg PO QDAY 03/29/22 08/29/22 sulfamethoxazole 400 1 tab PO BID 03/29/22 08/29/22 mg-trimethoprim 80 mg tablet (Bactrim) tacrolimus 0.5 mg capsule, 1.5 mg PO Q12H 03/29/22 08/29/22 immediate-release (Prograf) torsemide 10 mg tablet 10 mg PO QAM 03/29/22 08/29/22 trazodone 100 mg tablet 100 mg PO QDAY 03/29/22 08/29/22 voriconazole 200 mg tablet (Vfend) 200 mg PO Q12H 03/29/22 08/29/22 Previous Rx's Medication Instructions Recorded hydrocodone 5 mg-acetaminophen 325 1 tab PO Q4-6H PRN pain #20 tabs 04/13/22 mg tablet prednisone 20 mg tablet 20 mg PO BID #10 tabs 07/09/22 gabapentin 100 mg capsule See Rx Instructions .Route 02/14/23 .COMPLEX #20 caps oxycodone 5 mg capsule 5 mg PO QID PRN pain #20 caps 02/14/23 Allergies Allergy/AdvReac Type Severity Reaction Status Date / Time cefixime Allergy Intermediate Diarrhea Verified 08/29/22 14:43 quetiapine Allergy Intermediate Edema Verified 08/29/22 14:43 ciprofloxacin Allergy Unknown Verified 08/29/22 14:43 citalopram Allergy Unknown Verified 08/29/22 14:43 Review of Systems Status of ROS: Reports: 6 or more systems reviewed and unremarkable except as noted in History and below [facility] Social History Smoking Status: Former smoker How often do you have a drink containing alcohol: never AUDIT-C Alcohol total score: 0 Non-prescribed substance use: denies use Exam Narrative: Exam Narrative: Pleasant. With good energy. Breathing easily, not splinting. Forearms generally dark consistent with renal disease. Fistula in right arm. Examination of skin show moderately erythematous without notable induration confluent macular papular eruptions over the right chest and into the axilla. These do not cross midline. Consistent with shingles eruption. Const: Vital Signs, click to edit/add: Vital Signs - 24 hr 02/14/23 18:07 Temperature 97.7 F Pulse Rate [Pulse Oximeter] 78 Respiratory Rate 18 Blood Pressure [Le ft Upper Arm] 182/89 H Pulse Oximetry 98 Oxygen Delivery Me thod Room Air Documenting provider has reviewed patient's vital signs: yes Course Vital Signs Vital signs: Initial Vital Signs Temperature 97.7 F 02/14/23 18:07 Temperature Source Temporal Artery Scan 02/14/23 18:07 Pulse Rate 78 02/14/23 18:07 Respiratory Rate 18 02/14/23 18:07 Blood Pressure 182/89 H 02/14/23 18:07 Blood Pressure Mean 120 H 02/14/23 18:07 Pulse Oximetry 98 02/14/23 18:07 Oxygen Delivery Method Room Air 02/14/23 18:07 Vital Signs Temperature 97.7 F 02/14/23 18:07 Pulse Rate 78 02/14/23 18:07 Respiratory Rate 18 02/14/23 18:07 Blood Pressure 182/89 H 02/14/23 18:07 Pulse Oximetry 98 02/14/23 18:07 Oxygen Delivery Method Room Air 02/14/23 18:07 Temperature 97.7 F 02/14/23 18:07 Pulse Rate 78 02/14/23 18:07 Respiratory Rate 18 02/14/23 18:07 Blood Pressure 182/89 H 02/14/23 18:07 Pulse Oximetry 98 02/14/23 18:07 Oxygen Delivery Method Room Air 02/14/23 18:07 Medical Decision Making MDM Narrative Medical decision making narrative: I discussed with Mr. Singh and looked at his pictures that he had taken earlier of lesions. Reviewed prior notes and discharge recommendations. I do not appreciate any new lesions since these images were taken. Also discussed with transplant care team at [place]. It seems as if there might be a minor miscommunication. Instructions by them after consultation with Infectious Disease, were that if is evolving new lesions since ER visit, then would be then recommended for IV acyclovir. This does not appear to be the case or least that he has not had any new lesions since last seen. Using his cellphone we took more pictures for follow-up comparison if necessary. He will be seen tomorrow for already scheduled appointment including dialysis. Medical Records Medical records reviewed: Yes I reviewed the patient's medical records Discharge Plan Discharge Clinical Impression: Terry Patient Disposition: Home, Self-Care Condition: Stable Additional Instructions: Per my conversation with your transplant team who are communicating the recommendations from Infectious Disease, it appears that you are to watch for new lesions after your visit here today. So you have 3 pictures now we have taken with your phone this evening to serve as landmarks to see whether not new lesions are appearing. If there are new lesions, recommendations per Infectious Disease are to initiate IV acyclovir. This would need to be renally dosed understanding your renal failure and 3 days a week hemodialysis. Prescriptions: No Action albuterol sulfate 90 mcg/actuation HFA aerosol inhaler 2 puff inhalation Q6H PRN aspirin [Adult Low Dose Aspirin] 81 mg tablet,delayed release (DR/EC) 81 mg PO QDAY atorvastatin 10 mg tablet 10 mg PO QDAY azelastine 137 mcg (0.1 %) aerosol,spray 1 spray intranasal BID Rx Instructions: administer into each nostril benzonatate 100 mg capsule 100 mg PO BID PRN budesonide [Pulmicort] 0.25 mg/2 mL suspension for nebulization 0.5 mg inhalation QDAY coenzyme Q10 100 mg capsule 100 mg PO QDAY ipratropium bromide 21 mcg (0.03 %) spray,non-aerosol 2 spray intranasal BID Rx Instructions: administer into each nostril lamotrigine [Lamictal] 200 mg tablet 200 mg PO BID levothyroxine 25 mcg capsule 25 mcg PO QDAY loratadine 10 mg tablet 10 mg PO QDAY montelukast [Singulair] 10 mg tablet 10 mg PO QDAY mycophenolate mofetil [CellCept] 500 mg tablet 500 mg PO Q12H nifedipine [Procardia XL] 30 mg tablet extended release 24hr 30 mg PO QDAY ondansetron HCl 4 mg tablet 4 mg PO Q8H prednisone 5 mg tablet 5 mg PO QDAY tacrolimus [Prograf] 0.5 mg capsule 1.5 mg PO Q12H torsemide 10 mg tablet 10 mg PO QAM trazodone 100 mg tablet 100 mg PO QDAY Trelegy Ellipta 200-62.5-25 mcg blister with device 1 inh inhalation QDAY sulfamethoxazole-trimethoprim [Bactrim] 400-80 mg tablet 1 tab PO BID voriconazole [Vfend] 200 mg tablet 200 mg PO Q12H Rx Instructions: administer on empty stomach, at least 1 hour before or after meal(s) prednisone 20 mg tablet 20 mg PO BID Qty: 10 0RF hydrocodone-acetaminophen 5-325 mg tablet 1 tab PO Q4-6H PRN (Reason: pain) Qty: 20 0RF oxycodone 5 mg capsule 5 mg PO QID PRN (Reason: pain) Qty: 20 0RF Rx Instructions: 1-2 tabs every 4-6 hours p.r.n. pain. gabapentin 100 mg capsule See Rx Instructions .ROUTE .COMPLEX Qty: 20 0RF Rx Instructions: 100 mg orally every other day after dialysis. Follow Up/Referrals: Ryan Cole MD [Primary Care Provider] - Stand Alone Forms: [facility] Info Instructions
== END 2023-02-14 19:39 | disposition home or self-care (01) ==
PROVIDERS: Emergency Provider Family Medicine; PCP Surgery
DX: B02.9 Zoster without complications (principal); Z99.2 Dependence on renal dialysis
CPT/HCPCS: 99282; 99283; 99284

== ENCOUNTER 2023-03-02 19:54 | Emergency (ER) | payer MEDICARE, BC, SELFPAY ==
[2023-03-02] VITALS (13 sets, daily range): BP systolic 156–194; BP diastolic 80–150; PULSE 66–93; RESP 18–26; TEMP 36.6–38.3; O2SAT 94–100; BMI 24.4
--- NOTE | 2023-03-02 20:08 | ED.GENADULT ---
HPI - General Adult General Time Seen by Provider: 20:08 Date Seen: 03/02/23 Chief complaint: Chest Pain Stated complaint: neck and chest pain and tightness Time Seen by Provider: 03/02/23 20:08 Source: patient and RN notes reviewed Mode of arrival: ambulatory Limitations: no limitations History of Present Illness HPI narrative: This 67-year-old male is coming in with chest pain that is pleuritic in nature and severe. Symptoms started today. He notes earlier today just maybe felt a little discomfort in his anterior neck, progressed to having pain in his central substernal chest that is severe with breathing. He states it sharp. This patient recently had shingles on the right side, was seen in our ER at the end of January. He did take Valtrex, use Tylenol, gabapentin oxycodone for pain. He also did try some THC gummies. He states he prefers not to take anything. He also reports to me that he recently had a bronchoscopy was found to have a little infection in his lung, was started on Bactrim. He denies smoking ever. He is on dialysis and is status post liver transplant. He follows at [facility]. He states he has had a history of pneumonia many times, has had many lung infections in lung damage and did end up on nebulizers. He states that overall is helped his breathing. Denies any worsening of his cough, no fever. He also notes that the nurse pointed out his belly seemed a bit bloated, he thinks that maybe it is. He did just have dialysis on Friday, is next due Friday. Maybe feeling a little short of breath with his symptoms. No acute GI symptoms at this time. Related Data Home Medications Medication Instructions Recorded Confirmed albuterol sulfate 90 mcg/actuation 2 puff inhalation Q6H PRN 03/29/22 08/29/22 aerosol inhaler aspirin 81 mg tablet,delayed 81 mg PO QDAY 03/29/22 08/29/22 release (Adult Low Dose Aspirin) atorvastatin 10 mg tablet 10 mg PO QDAY 03/29/22 08/29/22 azelastine 137 mcg (0.1 %) nasal 1 spray intranasal BID 03/29/22 08/29/22 spray aerosol benzonatate 100 mg capsule 100 mg PO BID PRN 03/29/22 08/29/22 budesonide 0.25 mg/2 mL suspension 0.5 mg inhalation QDAY 03/29/22 08/29/22 for nebulization (Pulmicort) coenzyme Q10 100 mg capsule 100 mg PO QDAY 03/29/22 08/29/22 fluticasone fur. 200 mcg-umeclid 1 inh inhalation QDAY 03/29/22 08/29/22 62.5 mcg-vilant 25 mcg inhalat.powder (Trelegy Ellipta) ipratropium bromide 21 mcg (0.03 2 spray intranasal BID 03/29/22 08/29/22 %) nasal spray lamotrigine 200 mg tablet 200 mg PO BID 03/29/22 08/29/22 (Lamictal) levothyroxine 25 mcg capsule 25 mcg PO QDAY 03/29/22 08/29/22 loratadine 10 mg tablet 10 mg PO QDAY 03/29/22 08/29/22 montelukast 10 mg tablet 10 mg PO QDAY 03/29/22 08/29/22 (Singulair) mycophenolate mofetil 500 mg 500 mg PO Q12H 03/29/22 08/29/22 tablet (CellCept) nifedipine 30 mg tablet,extended 30 mg PO QDAY 03/29/22 08/29/22 release 24 hr (Procardia XL) ondansetron HCl 4 mg tablet 4 mg PO Q8H 03/29/22 08/29/22 prednisone 5 mg tablet 5 mg PO QDAY 03/29/22 08/29/22 sulfamethoxazole 400 1 tab PO BID 03/29/22 08/29/22 mg-trimethoprim 80 mg tablet (Bactrim) tacrolimus 0.5 mg capsule, 1.5 mg PO Q12H 03/29/22 08/29/22 immediate-release (Prograf) torsemide 10 mg tablet 10 mg PO QAM 03/29/22 08/29/22 trazodone 100 mg tablet 100 mg PO QDAY 03/29/22 08/29/22 voriconazole 200 mg tablet (Vfend) 200 mg PO Q12H 03/29/22 08/29/22 Previous Rx's Medication Instructions Recorded hydrocodone 5 mg-acetaminophen 325 1 tab PO Q4-6H PRN pain #20 tabs 04/13/22 mg tablet prednisone 20 mg tablet 20 mg PO BID #10 tabs 07/09/22 gabapentin 100 mg capsule See Rx Instructions .Route 02/14/23 .COMPLEX #20 caps oxycodone 5 mg capsule 5 mg PO QID PRN pain #20 caps 02/14/23 Allergies Allergy/AdvReac Type Severity Reaction Status Date / Time cefixime Allergy Intermediate Diarrhea Verified 03/02/23 23:13 quetiapine Allergy Intermediate Edema Verified 03/02/23 23:13 ciprofloxacin Allergy Unknown Verified 03/02/23 23:13 citalopram Allergy Unknown Verified 03/02/23 23:13 Review of Systems Status of ROS: Reports: 6 or more systems reviewed and unremarkable except as noted in History and below [facility] Social History Smoking Status: Former smoker How often do you have a drink containing alcohol: never AUDIT-C Alcohol total score: 0 Non-prescribed substance use: denies use Exam Const: Vital Signs, click to edit/add: Vital Signs - 24 hr 03/02/23 20:00 03/02/23 21:00 03/02/23 21:30 Temperature 97.8 F Pulse Rate [Left P ulse Oximeter] 66 88 Respiratory Rate 18 26 H Blood Pressure [Le ft Upper Arm] 173/80 H 194/150 H Pulse Oximetry 94 95 95 Oxygen Delivery Me thod Room Air Room Air 03/02/23 21:32 03/02/23 22:00 03/02/23 22:36 Temperature 100.9 F H 101 F H Pulse Rate [Left P ulse Oximeter] 89 Respiratory Rate 24 Blood Pressure [Le ft Upper Arm] 185/105 H Pulse Oximetry 96 Oxygen Delivery Me thod Room Air This 67-year-old male is alert interactive, has paroxysms where he seems to be having severe pain in grab his anterior chest. It is not constant but does reoccur throughout my interaction with him. Sclera clear face atraumatic, able to speak in complete sentences, no hoarseness. Neck is supple, no jugular venous distension or cervical adenopathy. Is able to roll over for me but does seem to cause him some discomfort with breathing. He has some dry sounding crackles left lower lung field, elsewhere lung sounds are clear, hear no wheezing. He has some residual pink scarring on the right lateral chest wall from his prior shingles, see no active scabbing or any new lesions. There is just residual scarring. Abdomen is soft but does look mildly protuberant, bowel sounds are present. He is not tender when I palpate, do not appreciate any organomegaly. He has no lower extremity edema. On palpation of his chest wall, he has no reproducible chest wall tenderness, nothing at the costochondral junctions. Documenting provider has reviewed patient's vital signs: yes Course Course ED Course: This patient is obviously having some significant chest pain that does seem to be pleuritic. He is oxygenating well at this time, will have him on cardiac monitoring and pulse oximetry. Will have staff obtain an EKG and point of care troponin. Will attempt to get plain chest x-ray either two-view or portable chest x-ray, whichever x-ray can do quick is. Pneumothorax, pleurisy infectious lung disease, possible atypical presentation of cardiac issues are all potential. Given that he is on Bactrim from a recent bronchoscopy, he has probably an atypical or opportunistic lung infection. Pneumonia certainly could be etiology here. Pericarditis is also possibility but this does not seem to be necessarily position own, just more so pleuritic. I am going to try a dose of IV dilaudid on him, have seen in prior records where he has tolerated that just fine. Reevaluation(s) Time of Reevaluation #1: 21:24 Reevaluation #1: Patient is re-evaluated, overall is feeling better but states he is getting some pain in his back. He states he is so cold in he is shaking, seemingly possibly having some rigors, does not feel warm but will have nursing staff recheck his temperature. Need to consider CT imaging in this gentleman. Discussed his lung infection further, he thinks it might be Serratia that they were treating with the Bactrim. Reviewed with him that this is something out of the realm for us for management here in [place]. Will see where his temperature is at and then possibly even discuss with [facility]. Blood pressure is actually elevated with a systolic of 190. 9:43 p.m.: Nursing staff is reporting to me that patient is having shaking rigors, under blankets. Asked nursing staff what his temperature was, this was post to be reported back to me. Went to find out, reportedly the temperature was 100.9? F. nursing staff and myself were not reported back to, this is obviously a fever, patient need blood cultures, repeat lactate, will dose Tylenol and contact [facility]. Consultations Consultation #1: October was contacted, spoke with CATARINA Pedro in the transfer center. He states they are in MICU med surge diversion but he is going to reach out to see what they can do. Reviewed with Willis that this patient is absolutely not appropriate for us, he requires dialysis, has underlying lung complexities which are above in beyond anything that we can manage here. This patient needs multimodality care and specialty care. Reviewed with Willis that I am going to need to speak with someone that can update me as to potential antibiotic selection, help with some recommendations for care management for this patient. Will have nursing staff work on securing blood cultures. Given that he is a dialysis patient, need to be very judicious with fluid use. 22:[address] Castro from the liver team. He agreed that this patient certainly could have atypical and concerning infections. 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 He recently had adjustments to his immune modulating medications due to his lung infections. We discussed antibiotic choices, he recommended starting with vanco and Zosyn until they can have Infectious Disease see him. I have subsequently ordered this. They are on MICU and med surge diversion but they are going to work on getting this patient bed placement there. We will proceed with doing chest abdomen pelvis with IV contrast and push images down to [facility]. If for some reason they have bed placement before we can do the imaging, we will not delay transfer. I did speak with Bruce and subsequent family members who have arrived. They are happy that he is going to be transfer but do understand I do not have a time frame for this. He remains with elevated blood pressures, they did wonder if I should give him something to drop his blood pressure. I reviewed with he and his family that at this time we are going to leave his blood pressure so we can watch it naturally. If it does start trending down, this could be symptomatic of worsening infection and sepsis potentially developing. Thus, I do not want to be reactive with his blood pressure when it is elevated and he is not symptomatic from it. I favor watching it closely as well as him. They understand my rationale at this point. Time: 21:54 Vital Signs Vital signs: Initial Vital Signs Temperature 97.8 F 03/02/23 20:00 Temperature Source Temporal Artery Scan 03/02/23 20:00 Pulse Rate 66 03/02/23 20:00 Respiratory Rate 18 03/02/23 20:00 Respiratory Effort Normal 03/02/23 20:00 Respiratory Depth Normal 03/02/23 20:00 Respiratory Pattern Normal 03/02/23 20:00 Blood Pressure 173/80 H 03/02/23 20:00 Blood Pressure Mean 111 H 03/02/23 20:00 Blood Pressure Position Sitting 03/02/23 20:00 Pulse Oximetry 94 03/02/23 20:00 Oxygen Delivery Method Room Air 03/02/23 20:00 Vital Signs Temperature 97.8 F 03/02/23 20:00 Pulse Rate 66 03/02/23 20:00 Respiratory Rate 18 03/02/23 20:00 Blood Pressure 173/80 H 03/02/23 20:00 Pulse Oximetry 94 03/02/23 20:00 Oxygen Delivery Method Room Air 03/02/23 20:00 Temperature 101 F H 03/02/23 22:36 Pulse Rate 89 03/02/23 22:00 Respiratory Rate 24 03/02/23 22:00 Blood Pressure 185/105 H 03/02/23 22:00 Pulse Oximetry 96 03/02/23 22:00 Oxygen Delivery Method Room Air 03/02/23 22:00 Medical Decision Making Lab Data Lab results reviewed: Yes I reviewed the patient's lab results Labs: Lab Results 03/02/23 03/02/23 03/02/23 Range/Units 20:03 20:05 20:08 WBC 9.74 (4.50-11.00) K/uL Corrected WBC [employer] ADVISOR RBC 3.80 L (4.30-5.90) m/uL Hgb 12.2 L (13.5-17.5) gm/dL Hct 37.8 (37.0-53.0) % MCV 100 (80-100) fL MCH 32 (26-34) pg MCHC 32 (32-36) gm/dL RDW Coeff of Hilda 20.0 H (11.5-15.5) % Plt Count 293 (140-440) K/uL Neut % (Auto) 72.9 H (42.0-72.0) % Lymph % (Auto) 15.6 L (20-44) % [place] % (Auto) 10.1 (0.0-11.0) % Eos % (Auto) 0.7 (0.0-7.0) % Baso % (Auto) 0.1 (0.0-3.0) % Neut # (Auto) 7.10 H (1.7-7.0) K/uL Lymph # (Auto) 1.50 (0.90-2.90) K/uL [place] # (Auto) 1.00 H (0.00-0.90) K/UL Eos # (Auto) 0.07 (0.00-0.50) K/uL Baso # (Auto) 0.01 (0.00-0.30) K/uL Abs Immat Gran (auto) 0.06 (0.00-0.30) K/uL Imm/Tot Granulo (auto) 0.6 % INR 0.89 L (0.91-1.10) APTT 31 (23-33) Seconds VBG pH (7.32-7.43) VBG pCO2 (40-50) mmHG VBG pO2 (25-47) mmHG VBG HCO3 (21-28) mmol/L Sodium 134 L Cancelled (135-149) mmol/L Potassium 4.9 Cancelled (3.6-5.1) mmol/L Chloride 94 L Cancelled (96-114) mmol/L Carbon Dioxide 25 Cancelled (20-32) mmol/L Anion Gap 15 Cancelled (7-15) mEq/L BUN 67 H Cancelled (7-30) mg/dL Creatinine 5.9 H Cancelled (0.5-1.5) mg/dL Estimated Creat Clear 11.98 Cancelled Estimated GFR 10 Cancelled ml/min Glucose 149 H Cancelled (60-115) mg/dL Lactate (0.5-1.9) mmol/L Calcium 9.5 Cancelled (8.4-10.6) mg/dL Magnesium 2.9 H (1.5-2.6) mg/dL Total Bilirubin 0.5 (0.1-1.5) mg/dL AST 36 H (12-35) U/L ALT 34 (4-50) U/L Alkaline Phosphatase 169 H (40-150) U/L NT-Pro-B Natriuret Pep 5880 pg/mL Total Protein 8.4 H (6.0-8.3) g/dL Albumin 4.7 (3.3-5.0) g/dL SARS-CoV-2 (PCR) (Negative) Influenza Type A (PCR) (Negative) Influenza Type B (PCR) (Negative) RSV (PCR) (Negative) POC Creatinine 6.8 H (0.6-1.3) mg/dl POC Troponin I 0.02 (0.01-0.04) ng/ml 03/02/23 03/02/23 03/02/23 Range/Units 20:25 20:32 22:14 WBC (4.50-11.00) K/uL Corrected WBC RBC (4.30-5.90) m/uL Hgb (13.5-17.5) gm/dL Hct (37.0-53.0) % MCV (80-100) fL MCH (26-34) pg MCHC (32-36) gm/dL RDW Coeff of Hilda (11.5-15.5) % Plt Count (140-440) K/uL Neut % (Auto) (42.0-72.0) % Lymph % (Auto) (20-44) % [place] % (Auto) (0.0-11.0) % Eos % (Auto) (0.0-7.0) % Baso % (Auto) (0.0-3.0) % Neut # (Auto) (1.7-7.0) K/uL Lymph # (Auto) (0.90-2.90) K/uL [place] # (Auto) (0.00-0.90) K/UL Eos # (Auto) (0.00-0.50) K/uL Baso # (Auto) (0.00-0.30) K/uL Abs Immat Gran (auto) (0.00-0.30) K/uL Imm/Tot Granulo (auto) % INR (0.91-1.10) APTT (23-33) Seconds VBG pH 7.530 H (7.32-7.43) VBG pCO2 32 L (40-50) mmHG VBG pO2 48.8 H (25-47) mmHG VBG HCO3 27 (21-28) mmol/L Sodium (135-149) mmol/L Potassium (3.6-5.1) mmol/L Chloride (96-114) mmol/L Carbon Dioxide (20-32) mmol/L Anion Gap (7-15) mEq/L BUN (7-30) mg/dL Creatinine (0.5-1.5) mg/dL Estimated Creat Clear Estimated GFR ml/min Glucose (60-115) mg/dL Lactate 2.1 H 3.0 H (0.5-1.9) mmol/L Calcium (8.4-10.6) mg/dL Magnesium (1.5-2.6) mg/dL Total Bilirubin (0.1-1.5) mg/dL AST (12-35) U/L ALT (4-50) U/L Alkaline Phosphatase (40-150) U/L NT-Pro-B Natriuret Pep pg/mL Total Protein (6.0-8.3) g/dL Albumin (3.3-5.0) g/dL SARS-CoV-2 (PCR) Negative SARS-CoV-2 (Negative) Influenza Type A (PCR) Negative PCR FLU A (Negative) Influenza Type B (PCR) Negative PCR FLU B (Negative) RSV (PCR) Negative PCR RSV (Negative) POC Creatinine (0.6-1.3) mg/dl POC Troponin I (0.01-0.04) ng/ml Imaging Data Chest x-ray: Attestation: I have reviewed the pertinent imaging results. My impression: I do not appreciate any definite pathology, wait radiology over-read. Radiologist's impression: Patient: BRUCE CUELLO Facility:?[facility] Patient ID:?[id number] Site Patient ID:?[id number]. Site :?1955 Study:?XRay Chest Portable 1v-03/02/2023 8:53:31 PM Ordering Physician:?Roberth Wilkins Final Report: INDICATION: Pleuritic chest pain. TECHNIQUE: Chest 1 views. COMPARISON: August 29, 2022. FINDINGS: Cardiovascular and mediastinum: Heart size and vasculature are normal in caliber and appearance. Lungs and pleural spaces: Low lung volumes. Lungs are clear. No sign of infiltrate or mass. No sign of pleural effusion. No pneumothorax. Bones and soft tissues: No significant findings. IMPRESSION: Low lung volumes. No acute findings and no significant changes from the prior exam. Dictated by Gurmeet Park MD @ 03/02/2023 10:10:33 PM (Electronic Signature) CT scan - chest: Attestation: I have reviewed the pertinent imaging results. Radiologist's impression: Patient: BRUCE CUELLO Facility:?[facility] Patient ID:?[id number] Site Patient ID:?[id number]. Site :?1955 Study:?CT Chest Angio w/ 95cc [id number]-[id number]/10/2023 11:22:49 PM Ordering Physician:Faye Wilkins Final Report: INDICATION: Chest pain, shortness of breath. TECHNIQUE: CT chest PE was acquired with 95 cc Isovue 370 IV contrast. COMPARISON: Chest radiograph 03/02/2023. FINDINGS: Heart and vasculature: Contrast opacification of the pulmonary arterial tree is adequate. Evaluation limited by respiratory motion. No sign of pulmonary embolism to the segmental level. Heart size is normal. Thoracic aorta and pulmonary artery are normal in caliber. Coronary artery calcifications. Lungs and pleura: Bibasilar atelectasis. No suspicious nodules or infiltrates. No pleural effusions, pleural thickening, or pneumothorax. Lymph nodes/mediastinum: No mediastinal, hilar, or axillary adenopathy. Thyroid gland is unremarkable. Chest wall: No masses. Upper abdomen: Please refer to separate CT abdomen and pelvis. Bones: Unremarkable for age. IMPRESSION: 1. No evidence of pulmonary embolism to the segmental level. 2. No acute pulmonary process. Please note that all CT scans at this facility use dose modulation, iterative reconstruction, and/or weight-based dosing when appropriate to reduce radiation dose to as low as reasonably achievable. Dictated by Scott Romero MD @ 03/03/2023 12:13:40 AM (Electronic Signature) CT scan - abdomen: Attestation: I have reviewed the pertinent imaging results. Radiologist's impression: Patient: BRUCE CUELLO Facility:?[facility] Patient ID:?[id number] Site Patient ID:?[id number]. Site :?1955 Study:?CT Abdomen/Pelvis w/ 95cc [id number]/10/2023 11:23:52 PM Ordering Physician:Faye Wilkins Final Report: INDICATION: Fever, liver transplant. TECHNIQUE: CT abdomen and pelvis acquired with 95 cc Isovue 370 IV contrast. COMPARISON: None. FINDINGS: Lower chest: Please refer to separate CT PE chest. Liver: Unremarkable. Normal in size and attenuation. No suspicious masses. Gallbladder and bile ducts: Status post cholecystectomy. Spleen: Unremarkable. Normal in size. No masses. Adrenal glands: Unremarkable. No nodules. Pancreas: Atrophic pancreas. Multiple low-density lesions of the pancreas, the largest measuring 2.0 x 1.5 cm and located in the distal pancreatic body. Kidneys: Atrophic kidneys. Right superior pole cyst. Left inferior pole indeterminate lesion measuring 2 cm. Subcentimeter hypodense foci are too small to accurately characterize. No hydronephrosis. GI tract: Moderate colonic stool load. No evidence of obstruction. Normal appendix. Lymph nodes: No lymphadenopathy. Vasculature: Scattered atherosclerotic calcifications. Omentum/Peritoneum/Abdominal Wall: Unremarkable. No free air or significant free fluid. Pelvis: Unremarkable. Bones: Degenerative changes. IMPRESSION: 1. No acute abdominal or pelvic abnormality. 2. Multiple pancreatic low-density lesions. Recommend further evaluation with MRI abdomen/MRCP on an outpatient basis. 3. Indeterminate left renal inferior pole exophytic lesion. This can also be evaluated on the MRI abdomen examination. Please note that all CT scans at this facility use dose modulation, iterative reconstruction, and/or weight-based dosing when appropriate to reduce radiation dose to as low as reasonably achievable. Dictated by Scott Romero MD @ 03/03/2023 12:21:14 AM (Electronic Signature) ECG Data Attestation: I personally reviewed and interpreted this ECG as follows: (Sinus rhythm with PAC, 70 beats per minute. He does have peaked T-waves and looks to have potential somewhat diffuse elevated ST segments verses elevated J-point. However, when I compare to his last EKG in our system, these findings are more prominent.) Prior ECG tracings: available for review Discharge Plan Discharge Clinical Impression: Fever, Pleuritic chest pain, Liver transplant status, Immunocompromised patient Patient Disposition: er [facility] Prescriptions: No Action albuterol sulfate 90 mcg/actuation HFA aerosol inhaler 2 puff inhalation Q6H PRN aspirin [Adult Low Dose Aspirin] 81 mg tablet,delayed release (DR/EC) 81 mg PO QDAY atorvastatin 10 mg tablet 10 mg PO QDAY azelastine 137 mcg (0.1 %) aerosol,spray 1 spray intranasal BID Rx Instructions: administer into each nostril benzonatate 100 mg capsule 100 mg PO BID PRN budesonide [Pulmicort] 0.25 mg/2 mL suspension for nebulization 0.5 mg inhalation QDAY coenzyme Q10 100 mg capsule 100 mg PO QDAY ipratropium bromide 21 mcg (0.03 %) spray,non-aerosol 2 spray intranasal BID Rx Instructions: administer into each nostril lamotrigine [Lamictal] 200 mg tablet 200 mg PO BID levothyroxine 25 mcg capsule 25 mcg PO QDAY loratadine 10 mg tablet 10 mg PO QDAY montelukast [Singulair] 10 mg tablet 10 mg PO QDAY mycophenolate mofetil [CellCept] 500 mg tablet 500 mg PO Q12H nifedipine [Procardia XL] 30 mg tablet extended release 24hr 30 mg PO QDAY ondansetron HCl 4 mg tablet 4 mg PO Q8H prednisone 5 mg tablet 5 mg PO QDAY tacrolimus [Prograf] 0.5 mg capsule 1.5 mg PO Q12H torsemide 10 mg tablet 10 mg PO QAM trazodone 100 mg tablet 100 mg PO QDAY Trelegy Ellipta 200-62.5-25 mcg blister with device 1 inh inhalation QDAY sulfamethoxazole-trimethoprim [Bactrim] 400-80 mg tablet 1 tab PO BID voriconazole [Vfend] 200 mg tablet 200 mg PO Q12H Rx Instructions: administer on empty stomach, at least 1 hour before or after meal(s) prednisone 20 mg tablet 20 mg PO BID Qty: 10 0RF hydrocodone-acetaminophen 5-325 mg tablet 1 tab PO Q4-6H PRN (Reason: pain) Qty: 20 0RF oxycodone 5 mg capsule 5 mg PO QID PRN (Reason: pain) Qty: 20 0RF Rx Instructions: 1-2 tabs every 4-6 hours p.r.n. pain. gabapentin 100 mg capsule See Rx Instructions .ROUTE .COMPLEX Qty: 20 0RF Rx Instructions: 100 mg orally every other day after dialysis. Stand Alone Forms: [facility] Info Instructions
--- NOTE | 2023-03-02 20:18 | CRLHL7_ITS ---
For Patients: As a result of the Century Cures Act, medical imaging exams and procedure reports are released immediately into your electronic medical record. You may view this report before your referring provider. If you have questions, please contact your health care provider. INDICATION: Pleuritic chest pain. TECHNIQUE: Chest 1 views. COMPARISON: August 29, 2022. FINDINGS: Cardiovascular and mediastinum: Heart size and vasculature are normal in caliber and appearance. Lungs and pleural spaces: Low lung volumes. Lungs are clear. No sign of infiltrate or mass. No sign of pleural effusion. No pneumothorax. Bones and soft tissues: No significant findings. IMPRESSION: Low lung volumes. No acute findings and no significant changes from the prior exam. Dictated by Gurmeet Park MD @ 03/02/2023 10:10:33 PM (Electronically Signed)
[2023-03-02 20:20] LABS: Creatinine, Point-of-Care* 6.8 mg/dl (0.6-1.3)
[2023-03-02 20:20] LABS: Basophils Absolute Auto 0.01 K/uL (0.00-0.30); Basophils Percent Auto 0.1 % (0.0-3.0); Eosinophils Absolute Auto 0.07 K/uL (0.00-0.50); Eosinophils Percent Auto 0.7 % (0.0-7.0); Hematocrit 37.8 % (37.0-53.0); Hemoglobin* 12.2 gm/dL (13.5-17.5); Immature Granulocytes Abs Auto 0.06 K/uL (0.00-0.30); Immature Granulocytes Pct Auto 0.6 %; Lymphocytes Percent Auto 15.6 % (20-44); Mean Corpuscular HGB Conc 32 gm/dL (32-36); Mean Corpuscular Hemoglobin 32 pg (26-34); Mean Corpuscular Volume 100 fL (80-100); Monocytes Percent Auto 10.1 % (0.0-11.0); Neutrophils Percent Auto 72.9 % (42.0-72.0); Platelet Count* 293 K/uL (140-440); White Blood Count* 9.74 K/uL (4.50-11.00)
[2023-03-02 20:37] LABS: Albumin* 4.7 g/dL (3.3-5.0); Chloride* 94 mmol/L (96-114)
[2023-03-02 20:38] LABS: Potassium* 4.9 mmol/L (3.6-5.1); Sodium* 134 mmol/L (135-149)
[2023-03-02 20:39] LABS: INR 0.89 (0.91-1.10); Partial Thromboplastin Time* 31 Seconds (23-33); Prothrombin Time 12.6 Seconds
[2023-03-02 20:40] LABS: Alanine Aminotransferase* 34 U/L (4-50); Alkaline Phosphatase* 169 U/L (40-150); Anion Gap 15 mEq/L (7-15); Aspartate Amino Transferase* 36 U/L (12-35); Bilirubin Total* 0.5 mg/dL (0.1-1.5); Blood Urea Nitrogen* 67 mg/dL (7-30); Calcium* 9.5 mg/dL (8.4-10.6); Carbon Dioxide* 25 mmol/L (20-32); Creatinine* 5.9 mg/dL (0.5-1.5); Est. Creatinine Clearance* 11.98; Estimated Glomerular Filt Rate 10 ml/min; Glucose* 149 mg/dL (60-115); Total Protein* 8.4 g/dL (6.0-8.3)
[2023-03-02 20:41] LABS: Slide Review Reflex No
[2023-03-02 20:41] LABS: Magnesium* 2.9 mg/dL (1.5-2.6)
[2023-03-02 20:42] LABS: HCO3 VBG 27 mmol/L (21-28); Lactate* 2.1 mmol/L (0.5-1.9); PCO2 VBG 32 mmHG (40-50); PO2 VBG 48.8 mmHG (25-47)
[2023-03-02] MEDS: HYDROmorphone 0.5 mg/0.5 ml inj IVP (20:45)
[2023-03-02] MEDS: OLANZapine 5 MG TAB.RAPDIS PO (20:45)
[2023-03-02 20:53] LABS: NT Pro B Type NatriureticPept* 5880 pg/mL; Troponin, Point-of-Care* 0.02 ng/ml (0.01-0.04)
[2023-03-02 21:25] LABS: PCR FLU A Negative PCR FLU A (Negative); PCR FLU B Negative PCR FLU B (Negative); PCR RSV Negative PCR RSV (Negative)
[2023-03-02 21:30] LABS: SARS PCR* Negative SARS-CoV-2 (Negative)
--- NOTE | 2023-03-02 22:20 | CRLHL7_ITS ---
For Patients: As a result of the Century Cures Act, medical imaging exams and procedure reports are released immediately into your electronic medical record. You may view this report before your referring provider. If you have questions, please contact your health care provider. INDICATION: Fever, liver transplant. TECHNIQUE: CT abdomen and pelvis acquired with 95 cc Isovue 370 IV contrast. COMPARISON: None. FINDINGS: Lower chest: Please refer to separate CT PE chest. Liver: Unremarkable. Normal in size and attenuation. No suspicious masses. Gallbladder and bile ducts: Status post cholecystectomy. Spleen: Unremarkable. Normal in size. No masses. Adrenal glands: Unremarkable. No nodules. Pancreas: Atrophic pancreas. Multiple low-density lesions of the pancreas, the largest measuring 2.0 x 1.5 cm and located in the distal pancreatic body. Kidneys: Atrophic kidneys. Right superior pole cyst. Left inferior pole indeterminate lesion measuring 2 cm. Subcentimeter hypodense foci are too small to accurately characterize. No hydronephrosis. GI tract: Moderate colonic stool load. No evidence of obstruction. Normal appendix. Lymph nodes: No lymphadenopathy. Vasculature: Scattered atherosclerotic calcifications. Omentum/Peritoneum/Abdominal Wall: Unremarkable. No free air or significant free fluid. Pelvis: Unremarkable. Bones: Degenerative changes. IMPRESSION: 1. No acute abdominal or pelvic abnormality. 2. Multiple pancreatic low-density lesions. Recommend further evaluation with MRI abdomen/MRCP on an outpatient basis. 3. Indeterminate left renal inferior pole exophytic lesion. This can also be evaluated on the MRI abdomen examination. Please note that all CT scans at this facility use dose modulation, iterative reconstruction, and/or weight-based dosing when appropriate to reduce radiation dose to as low as reasonably achievable. Dictated by Scott Romero MD @ 03/03/2023 12:21:14 AM (Electronically Signed)
--- NOTE | 2023-03-02 22:20 | CRLHL7_ITS ---
For Patients: As a result of the Century Cures Act, medical imaging exams and procedure reports are released immediately into your electronic medical record. You may view this report before your referring provider. If you have questions, please contact your health care provider. INDICATION: Chest pain, shortness of breath. TECHNIQUE: CT chest PE was acquired with 95 cc Isovue 370 IV contrast. COMPARISON: Chest radiograph 03/02/2023. FINDINGS: Heart and vasculature: Contrast opacification of the pulmonary arterial tree is adequate. Evaluation limited by respiratory motion. No sign of pulmonary embolism to the segmental level. Heart size is normal. Thoracic aorta and pulmonary artery are normal in caliber. Coronary artery calcifications. Lungs and pleura: Bibasilar atelectasis. No suspicious nodules or infiltrates. No pleural effusions, pleural thickening, or pneumothorax. Lymph nodes/mediastinum: No mediastinal, hilar, or axillary adenopathy. Thyroid gland is unremarkable. Chest wall: No masses. Upper abdomen: Please refer to separate CT abdomen and pelvis. Bones: Unremarkable for age. IMPRESSION: 1. No evidence of pulmonary embolism to the segmental level. 2. No acute pulmonary process. Please note that all CT scans at this facility use dose modulation, iterative reconstruction, and/or weight-based dosing when appropriate to reduce radiation dose to as low as reasonably achievable. Dictated by Scott Romero MD @ 03/03/2023 12:13:40 AM (Electronically Signed)
[2023-03-02] MEDS: ACETAMINOPHEN 325 MG TABLET 650 MG PO (22:36)
[2023-03-02] MEDS: PIPERACILLIN/TAZOBACTAM 2.25 GM in 0.9 % SODIUM CHLORIDE Mini-bag 100 ML IVPB (22:50)
[2023-03-03 00:01] VITALS: PULSE 98; O2SAT 98
[2023-03-03 00:15] VITALS: PULSE 90; O2SAT 96
[2023-03-03 00:20] VITALS: PULSE 95; O2SAT 89
[2023-03-03 01:04] VITALS: BP 185/105; PULSE 89; RESP 24; TEMP 38.3
== END 2023-03-03 01:05 | disposition short-term general hospital (02) ==
PROVIDERS: Emergency Provider Family Medicine; PCP Surgery
DX: R07.1 Chest pain on breathing (principal); R50.9 Fever, unspecified; Z94.4 Liver transplant status
CPT/HCPCS: 36415; 71045; 71275; 74177; 80048; 80053; 82565; 82803; 83605; 83735; 83880; 84484; 85025; 85610; 85730; 87040; 87631; 93005; 94761; 96365; 96366; 96375; 99285; A9270; J1170; J2543; J3370; J7120; Q9967

== ENCOUNTER 2023-03-31 10:30 | Outpatient (CLI) | payer MEDICARE, BC, SELFPAY | END 2023-03-31 10:31 | disposition home or self-care (01) | LOC: AMB 04-02 15:47 | PROVIDERS: PCP Surgery; Visit Provider Emergency Medicine Emergency Medical Services | DX: R07.89 Other chest pain (principal) | CPT/HCPCS: A0425; A0427 ==

== ENCOUNTER 2023-03-31 11:04 | Emergency (ER) | payer MEDICARE, BC, SELFPAY ==
[2023-03-31] VITALS (40 sets, daily range): BP systolic 75–109; BP diastolic 58–90; PULSE 68–118; RESP 18; TEMP 36.6; O2SAT 92–100; BMI 24.4
--- NOTE | 2023-03-31 11:23 | CRLHL7_ITS ---
For Patients: As a result of the Century Cures Act, medical imaging exams and procedure reports are released immediately into your electronic medical record. You may view this report before your referring provider. If you have questions, please contact your health care provider. INDICATION: Cough COMPARISON: 03/02/2023 TECHNIQUE: PA and lateral 2 view chest radiograph. FINDINGS: The lungs are well expanded. No focal consolidations. No pulmonary edema. No pleural effusion. No pneumothorax. No pneumomediastinum. Cardiomegaly. Normal upper mediastinal contours. Bones: Normal for age. IMPRESSION: Lungs are clear. No acute findings. Dictated by Tiana Prado MD @ 03/31/2023 12:40:20 PM (Electronically Signed)
[2023-03-31 11:30] LABS: Troponin, Point-of-Care* 0.01 ng/ml (0.01-0.04)
[2023-03-31 11:32] LABS: Lactate* 2.1 mmol/L (0.5-1.9)
[2023-03-31 11:33] LABS: Eosinophils Absolute Auto 0.03 K/uL (0.00-0.50); Eosinophils Percent Auto 0.6 % (0.0-7.0); Hemoglobin* 8.5 gm/dL (13.5-17.5); Immature Granulocytes Abs Auto 0.07 K/uL (0.00-0.30); Immature Granulocytes Pct Auto 1.3 %; Lymphocytes Percent Auto 14.5 % (20-44); Mean Corpuscular HGB Conc 33 gm/dL (32-36); Mean Corpuscular Hemoglobin 33 pg (26-34); Mean Corpuscular Volume 100 fL (80-100); Monocytes Percent Auto 9.9 % (0.0-11.0); Neutrophils Percent Auto 73.7 % (42.0-72.0); Platelet Count* 208 K/uL (140-440); RDW Coefficient of Variation % 17.8 % (11.5-15.5); Red Blood Count 2.59 m/uL (4.30-5.90); White Blood Count* 5.44 K/uL (4.50-11.00)
[2023-03-31 11:34] LABS: Slide Review Reflex No
[2023-03-31 11:49] LABS: Albumin* 3.8 g/dL (3.3-5.0); Chloride* 92 mmol/L (96-114); Sodium* 134 mmol/L (135-149)
[2023-03-31 11:50] LABS: Potassium* 4.3 mmol/L (3.6-5.1)
[2023-03-31 11:51] LABS: D Dimer Quantitative* 3.07 ug/ml (0.00-0.50)
[2023-03-31 11:52] LABS: Alanine Aminotransferase* 19 U/L (4-50); Alkaline Phosphatase* 120 U/L (40-150); Anion Gap 10 mEq/L (7-15); Aspartate Amino Transferase* 27 U/L (12-35); Bilirubin Direct* 0.3 mg/dL (0.0-0.5); Blood Urea Nitrogen* 29 mg/dL (7-30); Carbon Dioxide* 32 mmol/L (20-32); Creatinine* 2.6 mg/dL (0.5-1.5); Est. Creatinine Clearance* 27.19; Estimated Glomerular Filt Rate 26 ml/min
[2023-03-31 11:53] LABS: Calcium* 8.5 mg/dL (8.4-10.6); Glucose* 149 mg/dL (60-115)
[2023-03-31 11:55] LABS: C Reactive Protein* 7.2 mg/dL (0.5-1.0)
[2023-03-31 12:02] LABS: NT Pro B Type NatriureticPept* 4730 pg/mL
[2023-03-31 12:54] LABS: Free T4 Free Thyroxine* 2.68 ng/dL (0.70-1.85)
--- NOTE | 2023-03-31 13:12 | ED_ITS ---
HPI - General Adult General Date Seen: 03/31/23 Chief complaint: Chest Pain Stated complaint: Chest pain Time Seen by Provider: 03/31/23 11:07 Source: patient and EMS Mode of arrival: EMS Limitations: no limitations History of Present Illness HPI narrative: Patient is a 67-year-old male with a history of liver transplant, renal failure and hemodialysis as well as recent pericarditis with hospital admission to [facility] March 25 through . He normally dialyzes Friday and , he dialyzed today, on Friday apparently secondary to the pericarditis. He says they wanted him to have an extra dialysis day. He was at the tail end of his run when he developed some chest tightness or pressure, and then was noted to have blood pressures in the 60s. They apparently gave him 2 L of fluid back but blood pressures did not entirely respond and he was still having chest discomfort so he was sent to the ER for evaluation. Currently, he does note mild chest tightness, improved from previously. His blood pressure on arrival was in the 80s. He says he normally runs around 120 systolic. He notes that the chest discomfort is different than what he was having with his pericarditis which was more sharp and pleuritic. He denies any recent fevers, cough, lower extremity swelling or pain, he notes he always has some shortness of breath with exertion but no significant change in that. He denies any vomiting or diarrhea, black or bloody stools. He is not anticoagulated aside from a baby aspirin a day, and he says paramedics gave him aspirin as well as fentanyl. Related Data Home Medications Medication Instructions Recorded Confirmed albuterol sulfate 90 mcg/actuation 2 puff inhalation Q6H PRN 03/29/22 08/29/22 aerosol inhaler aspirin 81 mg tablet,delayed 81 mg PO QDAY 03/29/22 08/29/22 release (Adult Low Dose Aspirin) atorvastatin 10 mg tablet 10 mg PO QDAY 03/29/22 08/29/22 azelastine 137 mcg (0.1 %) nasal 1 spray intranasal BID 03/29/22 08/29/22 spray aerosol benzonatate 100 mg capsule 100 mg PO BID PRN 03/29/22 08/29/22 budesonide 0.25 mg/2 mL suspension 0.5 mg inhalation QDAY 03/29/22 08/29/22 for nebulization (Pulmicort) coenzyme Q10 100 mg capsule 100 mg PO QDAY 03/29/22 08/29/22 fluticasone fur. 200 mcg-umeclid 1 inh inhalation QDAY 03/29/22 08/29/22 62.5 mcg-vilant 25 mcg inhalat.powder (Trelegy Ellipta) ipratropium bromide 21 mcg (0.03 2 spray intranasal BID 03/29/22 08/29/22 %) nasal spray lamotrigine 200 mg tablet 200 mg PO BID 03/29/22 08/29/22 (Lamictal) levothyroxine 25 mcg capsule 25 mcg PO QDAY 03/29/22 08/29/22 loratadine 10 mg tablet 10 mg PO QDAY 03/29/22 08/29/22 montelukast 10 mg tablet 10 mg PO QDAY 03/29/22 08/29/22 (Singulair) mycophenolate mofetil 500 mg 500 mg PO Q12H 03/29/22 08/29/22 tablet (CellCept) nifedipine 30 mg tablet,extended 30 mg PO QDAY 03/29/22 08/29/22 release 24 hr (Procardia XL) ondansetron HCl 4 mg tablet 4 mg PO Q8H 03/29/22 08/29/22 prednisone 5 mg tablet 5 mg PO QDAY 03/29/22 08/29/22 sulfamethoxazole 400 1 tab PO BID 03/29/22 08/29/22 mg-trimethoprim 80 mg tablet (Bactrim) tacrolimus 0.5 mg capsule, 1.5 mg PO Q12H 03/29/22 08/29/22 immediate-release (Prograf) torsemide 10 mg tablet 10 mg PO QAM 03/29/22 08/29/22 trazodone 100 mg tablet 100 mg PO QDAY 03/29/22 08/29/22 voriconazole 200 mg tablet (Vfend) 200 mg PO Q12H 03/29/22 08/29/22 Previous Rx's Medication Instructions Recorded hydrocodone 5 mg-acetaminophen 325 1 tab PO Q4-6H PRN pain #20 tabs 04/13/22 mg tablet prednisone 20 mg tablet 20 mg PO BID #10 tabs 07/09/22 gabapentin 100 mg capsule See Rx Instructions .Route 02/14/23 .COMPLEX #20 caps oxycodone 5 mg capsule 5 mg PO QID PRN pain #20 caps 02/14/23 Allergies Allergy/AdvReac Type Severity Reaction Status Date / Time cefixime Allergy Intermediate Diarrhea Verified 03/02/23 23:13 quetiapine Allergy Intermediate Edema Verified 03/02/23 23:13 ciprofloxacin Allergy Unknown Verified 03/02/23 23:13 citalopram Allergy Unknown Verified 03/02/23 23:13 Review of Systems Status of ROS: Reports: 10 or more systems reviewed and unremarkable except as noted in History and below PFSH [facility] Social History Smoking Status: Former smoker How often do you have a drink containing alcohol: never AUDIT-C Alcohol total score: 0 Non-prescribed substance use: denies use Exam Narrative: Exam Narrative: Vital signs as noted above. In general, an alert, well-appearing patient. Breathing easily. Head: Normocephalic, atraumatic. Eyes: Pupils are equal reactive. Extraocular movements are full. Conjunctivae are normal. ENT: Mucous membranes are moist. Neck: Supple without lymphadenopathy. No stridor. Heart: Irregularly irregular, I do not hear a rub. Lungs: Crackles noted at both bases, left greater than right. Abdomen: Soft and nontender. No organomegaly. Extremities: Well perfused. No edema. No calf tenderness. Pulses intact. Neurologic: Patient is alert and oriented to person and place. Speech is fluent. Face is symmetric. Moves all extremities equally. Affect: Normal. Skin: Warm and dry. Well perfused. Const: Vital Signs, click to edit/add: Vital Signs - 24 hr 03/31/23 11:09 03/31/23 11:10 03/31/23 11:11 Temperature 97.8 F Pulse Rate 110 H 114 H Pulse Rate [Right Pulse Oximeter] 109 H Respiratory Rate 18 Blood Pressure 75/58 L 82/70 L Blood Pressure [Ri ght Upper Arm] 79/58 L Pulse Oximetry 99 97 98 Oxygen Delivery Me thod Room Air 03/31/23 11:12 03/31/23 11:15 03/31/23 11:16 Temperature Pulse Rate 102 H 99 112 H Pulse Rate [Right Pulse Oximeter] Respiratory Rate Blood Pressure 99/65 85/62 L Blood Pressure [Ri ght Upper Arm] Pulse Oximetry 100 100 100 Oxygen Delivery Me thod 03/31/23 11:17 03/31/23 11:30 03/31/23 11:31 Temperature Pulse Rate 99 110 H 100 Pulse Rate [Right Pulse Oximeter] Respiratory Rate Blood Pressure 83/63 L Blood Pressure [Ri ght Upper Arm] Pulse Oximetry 100 99 98 Oxygen Delivery Me thod 03/31/23 11:32 03/31/23 11:35 03/31/23 11:43 Temperature Pulse Rate 113 H 112 H Pulse Rate [Right Pulse Oximeter] Respiratory Rate Blood Pressure 95/68 90/79 Blood Pressure [Ri ght Upper Arm] Pulse Oximetry 99 97 Oxygen Delivery Me thod 03/31/23 11:44 03/31/23 11:47 03/31/23 11:48 Temperature Pulse Rate 111 H 109 H 109 H Pulse Rate [Right Pulse Oximeter] Respiratory Rate Blood Pressure 102/71 Blood Pressure [Ri ght Upper Arm] Pulse Oximetry 94 97 95 Oxygen Delivery Me thod 03/31/23 12:00 03/31/23 12:01 03/31/23 12:15 Temperature Pulse Rate 111 H 108 H 118 H Pulse Rate [Right Pulse Oximeter] Respiratory Rate Blood Pressure 93/69 Blood Pressure [Ri ght Upper Arm] Pulse Oximetry 92 96 93 Oxygen Delivery Me thod 03/31/23 12:16 03/31/23 12:30 03/31/23 12:31 Temperature Pulse Rate 112 H 112 H 100 Pulse Rate [Right Pulse Oximeter] Respiratory Rate Blood Pressure 109/77 101/76 Blood Pressure [Ri ght Upper Arm] Pulse Oximetry 97 100 100 Oxygen Delivery Me thod 03/31/23 12:45 03/31/23 12:46 03/31/23 13:00 Temperature Pulse Rate 105 H 111 H 106 H Pulse Rate [Right Pulse Oximeter] Respiratory Rate Blood Pressure 107/90 H Blood Pressure [Ri ght Upper Arm] Pulse Oximetry 100 100 100 Oxygen Delivery Me thod 03/31/23 13:01 03/31/23 13:15 03/31/23 13:17 Temperature Pulse Rate 106 H 113 H Pulse Rate [Right Pulse Oximeter] Respiratory Rate Blood Pressure 102/73 93/71 Blood Pressure [Ri ght Upper Arm] Pulse Oximetry 100 99 Oxygen Delivery Me thod 03/31/23 13:18 03/31/23 13:30 03/31/23 13:31 Temperature Pulse Rate 114 H 96 102 H Pulse Rate [Right Pulse Oximeter] Respiratory Rate Blood Pressure 92/73 Blood Pressure [Ri ght Upper Arm] Pulse Oximetry 100 98 98 Oxygen Delivery Me thod 03/31/23 13:45 03/31/23 14:01 03/31/23 14:31 Temperature Pulse Rate 103 H Pulse Rate [Right Pulse Oximeter] Respiratory Rate Blood Pressure 86/73 L 106/67 Blood Pressure [Ri ght Upper Arm] Pulse Oximetry 100 Oxygen Delivery Me thod 03/31/23 14:42 03/31/23 14:45 03/31/23 15:00 Temperature Pulse Rate 69 71 68 Pulse Rate [Right Pulse Oximeter] Respiratory Rate Blood Pressure Blood Pressure [Ri ght Upper Arm] Pulse Oximetry 100 96 95 Oxygen Delivery Me thod 03/31/23 15:01 03/31/23 15:15 03/31/23 15:30 Temperature Pulse Rate 69 71 72 Pulse Rate [Right Pulse Oximeter] Respiratory Rate Blood Pressure 109/68 Blood Pressure [Ri ght Upper Arm] Pulse Oximetry 93 99 99 Oxygen Delivery Mn thod 03/31/23 15:31 Temperature Pulse Rate 71 Pulse Rate [Right Pulse Oximeter] Respiratory Rate Blood Pressure 107/74 Blood Pressure [Ri ght Upper Arm] Pulse Oximetry 98 Oxygen Delivery Me thod Documenting provider has reviewed patient's vital signs: yes Course Course ED Course: On arrival patient was placed on monitor and pulse oximetry. He had an EKG which showed atrial fibrillation with a ventricular rate of 92, his heart rate has generally been between 105-115 here. He is not aware of a prior diagnosis of atrial fibrillation. I elected just to watch his blood pressure little bit, it has trended up from an initial blood pressure of 79/58 to 109/77 at last check. His heart rate remains in the 110 range. Labs show a white blood cell count of 5.4, hemoglobin is 8.5. Reviewing his past records, his last hemoglobin in February was 12, but looking further back he tends to run more in the range of 9 and half to 10. He tells me that 9-10 is pretty typical for him so it is possible that the low hemoglobin is delusional. Other notable labs are a troponin of 0.01, I did a D-dimer which is elevated at 3, at this time I am not certain of the possible significance of that. His O2 sats are 100%, he does not complain of shortness of breath and does not have pleuritic pain, uncertain whether this may be elevated due to his underlying health history or recent pericarditis. I did do an ultrasound, there is no evidence of right heart strain. Seems relatively unlikely that PE causing severe hypotension would not be associated with some evidence of right heart strain or hypoxia. He does have pericardial fluid and tells me that he had in effusion when he was at [place] that did not require draining. He does not show right ventricular collapse, amount of fluid is [id number]. His metabolic panel looks good, creatinine not surprisingly is elevated at 2.6 but sodium is 134 and potassium is 4.3 P lactate mildly elevated at 2.1. CRP is elevated at 7.2. BNP is elevated at 4730, not surprising given significant amount of fluid given. I did do a TSH and this was elevated at 5.1, his free T4 was also elevated at 2.68, surprisingly. He is on Synthroid 25 mcg a day. LFTs are unremarkable. Chest x-ray by my review did not show evidence of infiltrate or significant pulmonary edema or effusion. Radiology read it as negative. Patient tells me that he has had some noise at the base of his lungs for a while now. From a a hemodynamic standpoint patient has gradually improved throughout his ER stay. I do not see evidence on ultrasound of overt tamponade. I did talk with the overnight caregiver on-call at [facility], Dr. Cruz, who felt that overall with the AFib and pericardial effusion that patient should be transferred there for repeat echo and decision as to what to do in terms of anticoagulation/AFib. While we were waiting for bed assignment at [place], patient converted to sinus rhythm at a heart rate of 70. His blood pressure has been stable at around 110 systolic. He says he feels normal now, and wonders if he still needs to go to [place]. I talked with Dr. Cruz again, who felt that if patient was feeling well, had converted and was asymptomatic that it was reasonable to let him go home. He does have an appointment for an echo on Friday at [place] and a cardiology appointment on . I talked with him about his elevated D- dimer, discussed that we use that as a screening test for blood clot and that without a CT scan I cannot entirely rule out possibility of pulmonary embolism. I do feel that other explanations for his symptoms are more likely, he says that he frequently has hypotension at the end of dialysis, and his chest discomfort resolved when he went into sinus rhythm. He decided against doing a CT scan today, he understands that without that, the diagnosis of pulmonary embolism is not entirely ruled out. Discussed that if he had any time he has acute worsening, shortness of breath, recurrent chest pain, lightheadedness or fainting etcetera he should come back to the emergency department. We also discussed that his thyroid tests are abnormal, this may potentially be contributing to his atrial fibrillation. Both the thyroid levels and the AFib should be discussed with his overnight caregiver, as anticoagulation has not been discussed at this point. Patient will be discharged home with follow-up as outlined above. Return at any time to the ER for worsening. Vital Signs Vital signs: Initial Vital Signs Temperature 97.8 F 03/31/23 11:09 Temperature Source Temporal Artery Scan 03/31/23 11:09 Pulse Rate 109 H 03/31/23 11:09 Respiratory Rate 18 03/31/23 11:09 Blood Pressure 79/58 L 03/31/23 11:09 Blood Pressure Mean 65 L 03/31/23 11:09 Blood Pressure Position Sitting 03/31/23 11:09 Pulse Oximetry 99 03/31/23 11:09 Oxygen Delivery Method Room Air 03/31/23 11:09 Vital Signs Temperature 97.8 F 03/31/23 11:09 Pulse Rate 109 H 03/31/23 11:09 Respiratory Rate 18 03/31/23 11:09 Blood Pressure 79/58 L 03/31/23 11:09 Pulse Oximetry 99 03/31/23 11:09 Oxygen Delivery Method Room Air 03/31/23 11:09 Temperature 97.8 F 03/31/23 11:09 Pulse Rate 71 03/31/23 15:31 Respiratory Rate 18 03/31/23 11:09 Blood Pressure 107/74 03/31/23 15:31 Pulse Oximetry 98 03/31/23 15:31 Oxygen Delivery Method Room Air 03/31/23 11:09 Medical Decision Making Lab Data Labs: Lab Results 03/31/23 03/31/23 Range/Units 11:10 11:24 WBC 5.44 (4.50-11.00) K/uL RBC 2.59 L (4.30-5.90) m/uL Hgb 8.5 L (13.5-17.5) gm/dL Hct 26.0 L (37.0-53.0) % MCV 100 (80-100) fL MCH 33 (26-34) pg MCHC 33 (32-36) gm/dL RDW Coeff of Hilda 17.8 H (11.5-15.5) % Plt Count 208 (140-440) K/uL Neut % (Auto) 73.7 H (42.0-72.0) % Lymph % (Auto) 14.5 L (20-44) % [place] % (Auto) 9.9 (0.0-11.0) % Eos % (Auto) 0.6 (0.0-7.0) % Baso % (Auto) 0.0 (0.0-3.0) % Neut # (Auto) 4.00 (1.7-7.0) K/uL Lymph # (Auto) 0.80 L (0.90-2.90) K/uL [place] # (Auto) 0.50 (0.00-0.90) K/UL Eos # (Auto) 0.03 (0.00-0.50) K/uL Baso # (Auto) 0.00 (0.00-0.30) K/uL Abs Immat Gran (auto) 0.07 (0.00-0.30) K/uL Imm/Tot Granulo (auto) 1.3 % D-Dimer Quant (PE/DVT) 3.07 H (0.00-0.50) ug/ml Sodium 134 L (135-149) mmol/L Potassium 4.3 (3.6-5.1) mmol/L Chloride 92 L (96-114) mmol/L Carbon Dioxide 32 (20-32) mmol/L Anion Gap 10 (7-15) mEq/L BUN 29 (7-30) mg/dL Creatinine 2.6 H (0.5-1.5) mg/dL Estimated Creat Clear 27.19 Estimated GFR 26 ml/min Glucose 149 H (60-115) mg/dL Lactate 2.1 H (0.5-1.9) mmol/L Calcium 8.5 (8.4-10.6) mg/dL Total Bilirubin 1.0 (0.1-1.5) mg/dL Direct Bilirubin 0.3 (0.0-0.5) mg/dL AST 27 (12-35) U/L ALT 19 (4-50) U/L Alkaline Phosphatase 120 (40-150) U/L C-Reactive Protein 7.2 H (0.5-1.0) mg/dL NT-Pro-B Natriuret Pep 4730 pg/mL Total Protein 7.0 (6.0-8.3) g/dL Albumin 3.8 (3.3-5.0) g/dL TSH 5.120 H (0.270-4.200) uIU/mL Free T4 2.68 H (0.70-1.85) ng/dL POC Troponin I 0.01 (0.01-0.04) ng/ml Discharge Plan Discharge Clinical Impression: Atrial fibrillation, Pericarditis, Dialysis patient, Hypotension Patient Disposition: Home, Self-Care Condition: Improved Instructions: A-fib (Atrial Fibrillation) (ED) Additional Instructions: Follow-up for your echo on Friday and then with Cardiology on as planned. Please note that your thyroid (free T4) was elevated today, at 2. Six 8, our reference range is up to 1.85. Your TSH was also elevated at 5. You also were in atrial fibrillation today which resolved spontaneously. You also had atrial fibrillation last week when you were in the hospital. Both of these things should be discussed with your overnight caregiver when you see them on . Your D-dimer was elevated today, a test we used to screen for possible blood clot in the lung. We discussed further evaluation for this in the form of CT scan, but decided against that test today given that we have other more likely causes for your symptoms today. However, if at any point you develop more chest pain, shortness of breath, unusual cough, lightheadedness or fainting, you should return to the emergency department. Prescriptions: No Action albuterol sulfate 90 mcg/actuation HFA aerosol inhaler 2 puff inhalation Q6H PRN aspirin [Adult Low Dose Aspirin] 81 mg tablet,delayed release (DR/EC) 81 mg PO QDAY atorvastatin 10 mg tablet 10 mg PO QDAY azelastine 137 mcg (0.1 %) aerosol,spray 1 spray intranasal BID Rx Instructions: administer into each nostril benzonatate 100 mg capsule 100 mg PO BID PRN budesonide [Pulmicort] 0.25 mg/2 mL suspension for nebulization 0.5 mg inhalation QDAY coenzyme Q10 100 mg capsule 100 mg PO QDAY ipratropium bromide 21 mcg (0.03 %) spray,non-aerosol 2 spray intranasal BID Rx Instructions: administer into each nostril lamotrigine [Lamictal] 200 mg tablet 200 mg PO BID levothyroxine 25 mcg capsule 25 mcg PO QDAY loratadine 10 mg tablet 10 mg PO QDAY montelukast [Singulair] 10 mg tablet 10 mg PO QDAY mycophenolate mofetil [CellCept] 500 mg tablet 500 mg PO Q12H nifedipine [Procardia XL] 30 mg tablet extended release 24hr 30 mg PO QDAY ondansetron HCl 4 mg tablet 4 mg PO Q8H prednisone 5 mg tablet 5 mg PO QDAY tacrolimus [Prograf] 0.5 mg capsule 1.5 mg PO Q12H torsemide 10 mg tablet 10 mg PO QAM trazodone 100 mg tablet 100 mg PO QDAY Trelegy Ellipta 200-62.5-25 mcg blister with device 1 inh inhalation QDAY sulfamethoxazole-trimethoprim [Bactrim] 400-80 mg tablet 1 tab PO BID voriconazole [Vfend] 200 mg tablet 200 mg PO Q12H Rx Instructions: administer on empty stomach, at least 1 hour before or after meal(s) prednisone 20 mg tablet 20 mg PO BID Qty: 10 0RF hydrocodone-acetaminophen 5-325 mg tablet 1 tab PO Q4-6H PRN (Reason: pain) Qty: 20 0RF oxycodone 5 mg capsule 5 mg PO QID PRN (Reason: pain) Qty: 20 0RF Rx Instructions: 1-2 tabs every 4-6 hours p.r.n. pain. gabapentin 100 mg capsule See Rx Instructions .ROUTE .COMPLEX Qty: 20 0RF Rx Instructions: 100 mg orally every other day after dialysis. Follow Up/Referrals: Ryan Cole MD [Primary Care Provider] - Stand Alone Forms: [facility] Info Instructions
== END 2023-03-31 16:00 | disposition home or self-care (01) ==
PROVIDERS: Emergency Provider Emergency Medicine; PCP Surgery
DX: I48.91 Unspecified atrial fibrillation (principal); I95.9 Hypotension, unspecified; Z99.2 Dependence on renal dialysis
CPT/HCPCS: 36415; 71046; 80048; 80076; 83605; 83880; 84439; 84443; 84484; 85025; 85379; 86140; 93005; 94761; 99285

== ENCOUNTER 2023-07-19 05:58 | Emergency (ER) | payer MEDICARE, BC, SELFPAY ==
[2023-07-19] VITALS (8 sets, daily range): BP systolic 117–141; BP diastolic 71–95; PULSE 75–84; RESP 16; TEMP 36.6; O2SAT 97–100; BMI 25.1
[2023-07-19 06:36] LABS: Basophils Absolute Auto 0.02 K/uL (0.00-0.30); Basophils Percent Auto 0.4 % (0.0-3.0); Eosinophils Absolute Auto 0.04 K/uL (0.00-0.50); Eosinophils Percent Auto 0.8 % (0.0-7.0); Hematocrit 40.6 % (37.0-53.0); Hemoglobin* 13.5 gm/dL (13.5-17.5); Immature Granulocytes Abs Auto 0.06 K/uL (0.00-0.30); Immature Granulocytes Pct Auto 1.2 %; Lymphocytes Absolute Auto 1.32 K/uL (0.90-2.90); Lymphocytes Percent Auto 26.8 % (20-44); Mean Corpuscular HGB Conc 33 gm/dL (32-36); Mean Corpuscular Hemoglobin 34 pg (26-34); Mean Corpuscular Volume 102 fL (80-100); Monocytes Percent Auto 12.4 % (0.0-11.0); Neutrophils Absolute Auto 2.88 K/uL (1.7-7.0); Neutrophils Percent Auto 58.4 % (42.0-72.0); Platelet Count* 195 K/uL (140-440); RDW Coefficient of Variation % 15.1 % (11.5-15.5); Red Blood Count 3.99 m/uL (4.30-5.90); White Blood Count* 4.93 K/uL (4.50-11.00)
[2023-07-19 06:42] LABS: Slide Review Reflex No
[2023-07-19 06:50] LABS: Chloride* 94 mmol/L (96-114); Potassium* 3.6 mmol/L (3.6-5.1); Sodium* 133 mmol/L (135-149)
[2023-07-19 06:53] LABS: Anion Gap 13 mEq/L (7-15); Blood Urea Nitrogen* 47 mg/dL (7-30); Calcium* 8.8 mg/dL (8.4-10.6); Carbon Dioxide* 26 mmol/L (20-32); Creatinine* 3.3 mg/dL (0.5-1.5); Est. Creatinine Clearance* 21.42; Estimated Glomerular Filt Rate 20 ml/min; Glucose* 182 mg/dL (60-115)
--- NOTE | 2023-07-19 06:56 | ED.ARRPALP ---
HPI - Arrhythmia/Palpitations General Chief Complaint: Arrhythmia/Palpitations Stated Complaint: fluttering pulse Time Seen by Provider: 07/19/23 06:09 History of Present Illness HPI narrative: Patient is a 67-year-old gentleman who is status post liver transplant twice who is on dialysis for end-stage kidney disease who presents with palpitations. He states he has had no chest pain no significant shortness of breath no nausea no vomiting no fevers no chills. He felt like his heart was irregular at home when this is a change for him. He has had no change in his medications. He had dialysis yesterday. Upon arrival as EKG in telemetry both shows sinus arrhythmia. Patient is otherwise asymptomatic. Symptoms have been going on for the last several hours. Related Data Home Medications Medication Instructions Recorded Confirmed albuterol sulfate 90 mcg/actuation 2 puff inhalation Q6H PRN 03/29/22 08/29/22 aerosol inhaler aspirin 81 mg tablet,delayed 81 mg PO QDAY 03/29/22 08/29/22 release (Adult Low Dose Aspirin) atorvastatin 10 mg tablet 10 mg PO QDAY 03/29/22 08/29/22 azelastine 137 mcg (0.1 %) nasal 1 spray intranasal BID 03/29/22 08/29/22 spray aerosol benzonatate 100 mg capsule 100 mg PO BID PRN 03/29/22 08/29/22 budesonide 0.25 mg/2 mL suspension 0.5 mg inhalation QDAY 03/29/22 08/29/22 for nebulization (Pulmicort) coenzyme Q10 100 mg capsule 100 mg PO QDAY 03/29/22 08/29/22 fluticasone fur. 200 mcg-umeclid 1 inh inhalation QDAY 03/29/22 08/29/22 62.5 mcg-vilant 25 mcg inhalat.powder (Trelegy Ellipta) ipratropium bromide 21 mcg (0.03 2 spray intranasal BID 03/29/22 08/29/22 %) nasal spray lamotrigine 200 mg tablet 200 mg PO BID 03/29/22 08/29/22 (Lamictal) levothyroxine 25 mcg capsule 25 mcg PO QDAY 03/29/22 08/29/22 loratadine 10 mg tablet 10 mg PO QDAY 03/29/22 08/29/22 montelukast 10 mg tablet 10 mg PO QDAY 03/29/22 08/29/22 (Singulair) mycophenolate mofetil 500 mg 500 mg PO Q12H 03/29/22 08/29/22 tablet (CellCept) nifedipine 30 mg tablet,extended 30 mg PO QDAY 03/29/22 08/29/22 release 24 hr (Procardia XL) ondansetron HCl 4 mg tablet 4 mg PO Q8H 03/29/22 08/29/22 prednisone 5 mg tablet 5 mg PO QDAY 03/29/22 08/29/22 sulfamethoxazole 400 1 tab PO BID 03/29/22 08/29/22 mg-trimethoprim 80 mg tablet (Bactrim) tacrolimus 0.5 mg capsule, 1.5 mg PO Q12H 03/29/22 08/29/22 immediate-release (Prograf) torsemide 10 mg tablet 10 mg PO QAM 03/29/22 08/29/22 trazodone 100 mg tablet 100 mg PO QDAY 03/29/22 08/29/22 voriconazole 200 mg tablet (Vfend) 200 mg PO Q12H 03/29/22 08/29/22 Previous Rx's Medication Instructions Recorded hydrocodone 5 mg-acetaminophen 325 1 tab PO Q4-6H PRN pain #20 tabs 04/13/22 mg tablet prednisone 20 mg tablet 20 mg PO BID #10 tabs 07/09/22 gabapentin 100 mg capsule See Rx Instructions .Route 02/14/23 .COMPLEX #20 caps oxycodone 5 mg capsule 5 mg PO QID PRN pain #20 caps 02/14/23 Allergies Allergy/AdvReac Type Severity Reaction Status Date / Time cefixime Allergy Intermediate Diarrhea Verified 03/02/23 23:13 quetiapine Allergy Intermediate Edema Verified 03/02/23 23:13 ciprofloxacin Allergy Unknown Verified 03/02/23 23:13 citalopram Allergy Unknown Verified 03/02/23 23:13 Review of Systems Status of ROS: Reports: 10 or more systems reviewed and unremarkable except as noted in History and below [facility] Social History Smoking Status: Former smoker How often do you have a drink containing alcohol: never AUDIT-C Alcohol total score: 0 Non-prescribed substance use: denies use Exam Narrative: Exam Narrative: EXAM GENERAL: Patient appears comfortable and well. EYES: No scleral icterus. LYMPH: No supraclavicular or cervical lymphadenopathy. SKIN: Diffuse ecchymoses noted. EXT: No dependent lower extremity pedal edema. HEART: Regular rate and rhythm with no murmurs, rubs, or gallops. LUNGS: Clear to auscultation bilaterally with no crackles or wheezes. ABD: Soft, non tender, non distended. Multiple healed abdominal incisions PSYCH: Good eye contact, speech is not pressured. Const: Vital Signs, click to edit/add: Vital Signs - 24 hr 07/19/23 06:09 07/19/23 06:30 Temperature 97.8 F Pulse Rate 78 Pulse Rate [Left P ulse Oximeter] 80 Respiratory Rate 16 16 Blood Pressure 123/83 Blood Pressure [Le ft Upper Arm] 117/71 Pulse Oximetry 100 100 Oxygen Delivery Me thod Room Air Course Course ED Course: CBC basic metabolic panel troponin ordered. EKG shows sinus arrhythmia upon my review. Vital Signs Vital signs: Initial Vital Signs Temperature 97.8 F 07/19/23 06:09 Temperature Source Temporal Artery Scan 07/19/23 06:09 Pulse Rate 80 07/19/23 06:09 Pulse Rhythm Irregular 07/19/23 06:09 Respiratory Rate 16 07/19/23 06:09 Blood Pressure 117/71 07/19/23 06:09 Blood Pressure Mean 86 07/19/23 06:09 Blood Pressure Position Sitting 07/19/23 06:09 Pulse Oximetry 100 07/19/23 06:09 Oxygen Delivery Method Room Air 07/19/23 06:09 Vital Signs Temperature 97.8 F 07/19/23 06:09 Pulse Rate 80 07/19/23 06:09 Respiratory Rate 16 07/19/23 06:09 Blood Pressure 117/71 07/19/23 06:09 Pulse Oximetry 100 07/19/23 06:09 Oxygen Delivery Method Room Air 07/19/23 06:09 Temperature 97.8 F 07/19/23 06:09 Pulse Rate 78 07/19/23 06:30 Respiratory Rate 16 07/19/23 06:30 Blood Pressure 123/83 07/19/23 06:30 Pulse Oximetry 100 07/19/23 06:30 Oxygen Delivery Method Room Air 07/19/23 06:09 MDM - Arrhythmia/Palpitations MDM Narrative Medical decision making narrative: Patient presents with an irregular pulses noted have sinus arrhythmia on EKG. His troponin is negative. His electrolytes are reasonably stable given he is dialysis patient as is his CBC. Reassurance is offered. 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 I would not change any of his medications and patient is otherwise feeling fine. Will make no other recommendations at this time. Differential Diagnosis Differential diagnosis: Likely palpitations, anxiety, sinus tachycardia, artial fibrillation, artial flutter, ventricular premature beats, supraventricular tachycardia, ventricular tachycardia and WPW Lab Data Labs: Lab Results 07/19/23 Range/Units 06:28 WBC 4.93 (4.50-11.00) K/uL RBC 3.99 L (4.30-5.90) m/uL Hgb 13.5 (13.5-17.5) gm/dL Hct 40.6 (37.0-53.0) % MCV 102 H (80-100) fL MCH 34 (26-34) pg MCHC 33 (32-36) gm/dL RDW Coeff of Hilda 15.1 (11.5-15.5) % Plt Count 195 (140-440) K/uL Neut % (Auto) 58.4 (42.0-72.0) % Lymph % (Auto) 26.8 (20-44) % Isabella % (Auto) 12.4 H (0.0-11.0) % Eos % (Auto) 0.8 (0.0-7.0) % Baso % (Auto) 0.4 (0.0-3.0) % Neut # (Auto) 2.88 (1.7-7.0) K/uL Lymph # (Auto) 1.32 (0.90-2.90) K/uL Isabella # (Auto) 0.60 (0.00-0.90) K/UL Eos # (Auto) 0.04 (0.00-0.50) K/uL Baso # (Auto) 0.02 (0.00-0.30) K/uL Abs Immat Gran (auto) 0.06 (0.00-0.30) K/uL Imm/Tot Granulo (auto) 1.2 % Sodium 133 L (135-149) mmol/L Potassium 3.6 (3.6-5.1) mmol/L Chloride 94 L (96-114) mmol/L Carbon Dioxide 26 (20-32) mmol/L Anion Gap 13 (7-15) mEq/L BUN 47 H (7-30) mg/dL Creatinine 3.3 H (0.5-1.5) mg/dL Estimated Creat Clear 21.42 Estimated GFR 20 ml/min Glucose 182 H (60-115) mg/dL Calcium 8.8 (8.4-10.6) mg/dL Troponin I 0.02 (0.01-0.04) ng/mL Discharge Plan Discharge Clinical Impression: Sinus arrhythmia Patient Disposition: Home, Self-Care Condition: Stable Additional Instructions: No change to her current medications Continue dialysis and follow-up as previous. Activity Level: No Restrictions Discharge Diet: Regular Prescriptions: No Action albuterol sulfate 90 mcg/actuation HFA aerosol inhaler 2 puff inhalation Q6H PRN aspirin [Adult Low Dose Aspirin] 81 mg tablet,delayed release (DR/EC) 81 mg PO QDAY atorvastatin 10 mg tablet 10 mg PO QDAY azelastine 137 mcg (0.1 %) aerosol,spray 1 spray intranasal BID Rx Instructions: administer into each nostril benzonatate 100 mg capsule 100 mg PO BID PRN budesonide [Pulmicort] 0.25 mg/2 mL suspension for nebulization 0.5 mg inhalation QDAY coenzyme Q10 100 mg capsule 100 mg PO QDAY ipratropium bromide 21 mcg (0.03 %) spray,non-aerosol 2 spray intranasal BID Rx Instructions: administer into each nostril lamotrigine [Lamictal] 200 mg tablet 200 mg PO BID levothyroxine 25 mcg capsule 25 mcg PO QDAY loratadine 10 mg tablet 10 mg PO QDAY montelukast [Singulair] 10 mg tablet 10 mg PO QDAY mycophenolate mofetil [CellCept] 500 mg tablet 500 mg PO Q12H nifedipine [Procardia XL] 30 mg tablet extended release 24hr 30 mg PO QDAY ondansetron HCl 4 mg tablet 4 mg PO Q8H prednisone 5 mg tablet 5 mg PO QDAY tacrolimus [Prograf] 0.5 mg capsule 1.5 mg PO Q12H torsemide 10 mg tablet 10 mg PO QAM trazodone 100 mg tablet 100 mg PO QDAY Trelegy Ellipta 200-62.5-25 mcg blister with device 1 inh inhalation QDAY sulfamethoxazole-trimethoprim [Bactrim] 400-80 mg tablet 1 tab PO BID voriconazole [Vfend] 200 mg tablet 200 mg PO Q12H Rx Instructions: administer on empty stomach, at least 1 hour before or after meal(s) prednisone 20 mg tablet 20 mg PO BID Qty: 10 0RF hydrocodone-acetaminophen 5-325 mg tablet 1 tab PO Q4-6H PRN (Reason: pain) Qty: 20 0RF oxycodone 5 mg capsule 5 mg PO QID PRN (Reason: pain) Qty: 20 0RF Rx Instructions: 1-2 tabs every 4-6 hours p.r.n. pain. gabapentin 100 mg capsule See Rx Instructions .ROUTE .COMPLEX Qty: 20 0RF Rx Instructions: 100 mg orally every other day after dialysis. Follow Up/Referrals: Ryan Cole MD [Primary Care Provider] - Stand Alone Forms: [facility] Info Instructions
[2023-07-19 07:05] LABS: Troponin I* 0.02 ng/mL (0.01-0.04)
== END 2023-07-19 07:18 | disposition home or self-care (01) ==
PROVIDERS: Emergency Provider Internal Medicine; PCP Surgery
DX: I49.3 Ventricular premature depolarization (principal)
CPT/HCPCS: 36415; 80048; 84484; 85025; 99283

== ENCOUNTER 2023-09-14 20:03 | Emergency (ER) | payer MEDICARE, BC, SELFPAY ==
[2023-09-14] VITALS (18 sets, daily range): BP systolic 136–152; BP diastolic 69–101; PULSE 65–88; RESP 24–34; TEMP 35.6–35.8; O2SAT 69–100; BMI 25.1
--- NOTE | 2023-09-14 20:11 | ED.GENADULT ---
HPI - General Adult General Date Seen: 09/14/23 Chief complaint: Abdominal Pain Stated complaint: pain on side, vomiting Time Seen by Provider: 09/14/23 20:11 History of Present Illness HPI narrative: 68-year-old gentleman with a history of liver transplant (twice) end-stage renal disease on dialysis (Friday, Friday), atrial fibrillation, history of pericarditis with hospitalization at [facility] last fall, lung disease. Presents to the ER this evening for abrupt onset of severe left-sided abdominal pain. He was just resting at home about an hour prior to arrival when he had abrupt onset of pain. It is intense on his left side. It does not really radiate through to the back or to the right side. It made him nauseous and he vomited 3 times at onset. No antecedent symptoms. No other recent abdominal problems. No fever. No trouble breathing. No pain in his chest or ribs. All the pain is in his abdomen. No pain radiating down his leg. No pain to his groin or testicles. No urinary symptoms. Bowel movements have been normal. He dialyzes Friday, Friday, Friday and dialyzed last week without incident. His fistula in his right upper extremity is been functioning fine lately. He is on his meds for his liver transplant. He follows at [facility] for his care. Related Data Home Medications Medication Instructions Recorded Confirmed albuterol sulfate 90 mcg/actuation 2 puff inhalation Q6H PRN 03/29/22 08/29/22 aerosol inhaler aspirin 81 mg tablet,delayed 81 mg PO QDAY 03/29/22 08/29/22 release (Adult Low Dose Aspirin) atorvastatin 10 mg tablet 10 mg PO QDAY 03/29/22 08/29/22 azelastine 137 mcg (0.1 %) nasal 1 spray intranasal BID 03/29/22 08/29/22 spray aerosol benzonatate 100 mg capsule 100 mg PO BID PRN 03/29/22 08/29/22 budesonide 0.25 mg/2 mL suspension 0.5 mg inhalation QDAY 03/29/22 08/29/22 for nebulization (Pulmicort) coenzyme Q10 100 mg capsule 100 mg PO QDAY 03/29/22 08/29/22 fluticasone fur. 200 mcg-umeclid 1 inh inhalation QDAY 03/29/22 08/29/22 62.5 mcg-vilant 25 mcg inhalat.powder (Trelegy Ellipta) ipratropium bromide 21 mcg (0.03 2 spray intranasal BID 03/29/22 08/29/22 %) nasal spray lamotrigine 200 mg tablet 200 mg PO BID 03/29/22 08/29/22 (Lamictal) levothyroxine 25 mcg capsule 25 mcg PO QDAY 03/29/22 08/29/22 loratadine 10 mg tablet 10 mg PO QDAY 03/29/22 08/29/22 montelukast 10 mg tablet 10 mg PO QDAY 03/29/22 08/29/22 (Singulair) mycophenolate mofetil 500 mg 500 mg PO Q12H 03/29/22 08/29/22 tablet (CellCept) nifedipine 30 mg tablet,extended 30 mg PO QDAY 03/29/22 08/29/22 release 24 hr (Procardia XL) ondansetron HCl 4 mg tablet 4 mg PO Q8H 03/29/22 08/29/22 prednisone 5 mg tablet 5 mg PO QDAY 03/29/22 08/29/22 sulfamethoxazole 400 1 tab PO BID 03/29/22 08/29/22 mg-trimethoprim 80 mg tablet (Bactrim) tacrolimus 0.5 mg capsule, 1.5 mg PO Q12H 03/29/22 08/29/22 immediate-release (Prograf) torsemide 10 mg tablet 10 mg PO QAM 03/29/22 08/29/22 trazodone 100 mg tablet 100 mg PO QDAY 03/29/22 08/29/22 voriconazole 200 mg tablet (Vfend) 200 mg PO Q12H 03/29/22 08/29/22 Previous Rx's Medication Instructions Recorded hydrocodone 5 mg-acetaminophen 325 1 tab PO Q4-6H PRN pain #20 tabs 04/13/22 mg tablet prednisone 20 mg tablet 20 mg PO BID #10 tabs 07/09/22 gabapentin 100 mg capsule See Rx Instructions .Route 02/14/23 .COMPLEX #20 caps oxycodone 5 mg capsule 5 mg PO QID PRN pain #20 caps 02/14/23 Allergies Allergy/AdvReac Type Severity Reaction Status Date / Time cefixime Allergy Intermediate Diarrhea Verified 03/02/23 23:13 quetiapine Allergy Intermediate Edema Verified 03/02/23 23:13 ciprofloxacin Allergy Unknown Verified 03/02/23 23:13 citalopram Allergy Unknown Verified 03/02/23 23:13 [facility] Social History Smoking Status: Former smoker How often do you have a drink containing alcohol: never AUDIT-C Alcohol total score: 0 Non-prescribed substance use: denies use Exam Narrative: Exam Narrative: Constitutional: Appears well-developed and well-nourished. Alert. Very uncomfortable and writhing, moaning in pain. History limited because of discomfort. HENT: Head: Atraumatic. Nose: Nose normal. Mouth/Throat: Oral mucosa is clear and moist. no trismus. Pharynx normal. Eyes: Conjunctivae normal. EOM normal. Pupils equal, round, and reactive to light. No scleral icterus. Neck: Normal range of motion. Neck supple. No tracheal deviation present. No JVD Cardiovascular: Normal rate, regular rhythm. No gallop. No friction rub. No murmur heard. Symmetric radial artery pulses . Dialysis fistula in right upper extremity with positive thrill. Pulmonary/Chest: Effort normal. No stridor. No respiratory distress. No wheezes. No rales. No rhonchi . No ribcage tenderness. Abdominal: Soft. Bowel sounds normal. Not hyperactive or tingling or rushing. He has a Y-shaped incision in his upper abdomen from his previous liver transplants. No distension. No mass. Marked left-sided upper and lower quadrant tenderness. No right-sided tenderness but he says when I palpate on the right it causes pain on the left. No definite pulsatile mass. No CVA tenderness. No groin tenderness. No rebound. No guarding. Musculoskeletal: RUE: Normal range of motion. No tenderness. No deformity LUE: Normal range of motion. No tenderness. No deformity RLE: Normal range of motion. No edema. No tenderness. No deformity LLE: Normal range of motion. No edema. No tenderness. No deformity Neurological: Alert and oriented to person, place, and time. Normal strength. CN II-VII intact. No sensory deficit. GCS eye subscore is 4. GCS verbal subscore is 5. GCS motor subscore is 6. Normal coordination Skin: Skin is warm and dry. No rash noted. No pallor. Normal capillary refill. Psychiatric: Normal mood. Normal affect. Const: Vital Signs, click to edit/add: Vital Signs - 24 hr 09/14/23 20:09 09/14/23 20:14 09/14/23 20:15 Temperature 96.0 F L Pulse Rate 77 71 Pulse Rate [Pulse Oximeter] 70 Respiratory Rate 34 H Blood Pressure 143/69 H Blood Pressure [Le ft Upper Arm] 143/69 H Pulse Oximetry 99 96 93 Oxygen Delivery Me thod Room Air 09/14/23 20:30 09/14/23 20:45 09/14/23 20:51 Temperature Pulse Rate 76 65 68 Pulse Rate [Pulse Oximeter] Respiratory Rate Blood Pressure 138/69 Blood Pressure [Le ft Upper Arm] Pulse Oximetry 100 99 100 Oxygen Delivery Me thod 09/14/23 20:52 09/14/23 21:00 09/14/23 21:15 Temperature Pulse Rate 72 70 77 Pulse Rate [Pulse Oximeter] Respiratory Rate Blood Pressure Blood Pressure [Le ft Upper Arm] Pulse Oximetry 100 100 96 Oxygen Delivery Me thod 09/14/23 21:16 09/14/23 21:19 09/14/23 21:31 Temperature Pulse Rate 76 69 Pulse Rate [Pulse Oximeter] Respiratory Rate 32 H Blood Pressure 152/69 H Blood Pressure [Le ft Upper Arm] Pulse Oximetry 92 100 Oxygen Delivery Me thod 09/14/23 21:37 09/14/23 21:38 09/14/23 21:45 Temperature Pulse Rate 84 74 72 Pulse Rate [Pulse Oximeter] Respiratory Rate Blood Pressure 152/101 H Blood Pressure [Le ft Upper Arm] Pulse Oximetry 99 69 L 100 Oxygen Delivery Me thod Course Course ED Course: Recheck-pain not much improved after 1st dose of fentanyl. Additional 50 mcg ordered. Recheck-somewhat more comfortable after 100 mcg of fentanyl. Blood pressure stable. Reviewed CT. Concerning for fluid collection. Antibiotics ordered. Recheck-hemoglobin came back at 6. Does not appear to be lab error, since white count platelet count do not appear to be low. Will recheck. Patient denies any recent diarrhea, black or bloody stools. No other vomiting. No trauma. Had sudden onset of pain about an hour prior to arrival while he was resting. TXA ordered for internal bleeding. Additional fentanyl ordered. Recheck-reviewed with Radiology by phone. They confirm what appears to be hematoma around the left kidney and left retroperitoneal hemorrhage. Radiologist notes that he had a small 2 cm mass on his left kidney on a CT scan left fall. He does not know whether that mass was malignant and on but it is possible that the this might be a bleeding malignancy. Recheck-Dilaudid ordered for pain not responding to fentanyl. Vital Signs Vital signs: Initial Vital Signs Temperature 96.0 F L 09/14/23 20:09 Temperature Source Temporal Artery Scan 09/14/23 20:09 Pulse Rate 70 09/14/23 20:09 Respiratory Rate 34 H 09/14/23 20:09 Blood Pressure 143/69 H 09/14/23 20:09 Blood Pressure Mean 93 09/14/23 20:09 Blood Pressure Position Sitting 09/14/23 20:09 Pulse Oximetry 99 09/14/23 20:09 Oxygen Delivery Method Room Air 09/14/23 20:09 Vital Signs Temperature 96.0 F L 09/14/23 20:09 Pulse Rate 70 09/14/23 20:09 Respiratory Rate 34 H 09/14/23 20:09 Blood Pressure 143/69 H 09/14/23 20:09 Pulse Oximetry 99 09/14/23 20:09 Oxygen Delivery Method Room Air 09/14/23 20:09 Temperature 96.0 F L 09/14/23 20:09 Pulse Rate 72 09/14/23 21:45 Respiratory Rate 32 H 09/14/23 21:16 Blood Pressure 152/101 H 09/14/23 21:37 Pulse Oximetry 100 09/14/23 21:45 Oxygen Delivery Method Room Air 09/14/23 20:09 Medications Administered Medications: Generic Name Dose Route Start Last Admin Trade Name Freq PRN Reason Stop Dose Admin Fentanyl 50 mcg 09/14/23 20:17 09/14/23 20:22 Fentanyl 100 Mcg/2 Ml Inj IVP 09/14/23 20:18 50 mcg ONCE ONE Administration Fentanyl 50 mcg 09/14/23 20:28 09/14/23 20:30 Fentanyl 100 Mcg/2 Ml Inj IVP 09/14/23 20:29 50 mcg ONCE ONE Administration Fentanyl 50 mcg 09/14/23 21:41 09/14/23 21:10 Fentanyl 100 Mcg/2 Ml Inj IVP 09/14/23 21:42 50 mcg ONCE ONE Administration Hydromorphone HCl 1 mg 09/14/23 21:38 09/14/23 21:35 Hydromorphone 0.5 Mg/0.5 Ml Inj IVP 09/14/23 21:39 1 mg ONCE ONE Administration Piperacillin Sod/Tazobactam 100 mls @ 200 mls/hr 09/14/23 20:48 09/14/23 21:17 Sod 2.25 gm/ Sodium Chloride IVPB 09/14/23 20:49 Infused ONCE ONE Infusion Tranexamic Acid 1,000 mg 09/14/23 21:15 09/14/23 21:26 Tranexamic Acid 100 Mg/Ml Inj IV 09/14/23 21:16 1,000 mg ONCE ONE Administration Discontinued Medications Generic Name Dose Route Start Last Admin Trade Name Freq PRN Reason Stop Dose Admin Piperacillin Sod/Tazobactam 100 mls @ 200 mls/hr 09/14/23 20:47 09/14/23 21:13 Sod 4.5 gm/ Sodium Chloride IVPB 09/14/23 20:48 Not Given ONCE ONE Medical Decision Making MDM Narrative Medical decision making narrative: This patient presented with acute onset of severe left-sided abdominal pain that began about 1 hour prior to presentation. Initial differential for severe sudden on set pain included kidney stone, volvulus, abrupt onset obstruction, as well as vascular pathology such as acute aortic aneurysm rupture (no noted history of aortic aneurysm) or other vascular problems such as acute mesenteric ischemia. Initial blood pressure and pulse were stable. He was not febrile. He was quite uncomfortable presentation. IV fentanyl boluses ordered. Limited pain control with fentanyl, with Dilaudid somewhat more comfortable. Oxygen remains 100% and although still endorsing pain is appearing more comfortable than arrival. Will likely need additional opiates. At this point protecting his airway, does not need to be intubated. Consider possible infectious etiologies. Labs and cultures ordered. Patient sent for stat abdominal/pelvis CT without contrast due to his renal failure (but still makes some urine). I reviewed this is a came off the scanner and there does appear to be a large inflammatory mass, possibly an abscess or fluid collection and left abdomen. It does not appear to communicate with the aorta to suggest aortic rupture. Possibly in the location of the left kidney but I do not see normal left kidney anatomy. We called Radiology for a stat read. Will start broad-spectrum antibiotics for possible infection. Zosyn, renally dosed. Subsequently hemoglobin came back at 6.3. Unclear if this is acute anemia or may reflect subacute anemia. We do know his most recent hemoglobin from 2 months ago was 13.5. Suspect this is probably acute blood loss anemia. He appears to have a large retroperitoneal /renal hemorrhage on CT scan. We administered TXA. I have also ordered blood transfusion. At this point blood pressure is stable but his hemoglobin is dropped from 13 down to 6. Mental status remains normal. He is protecting his airway. Hematology-patient has anemia with hemoglobin of 6.3. Previous hemoglobin was in June was 13.5. Prior to that he had hemoglobins that were lower ranging 8.5 up to 12. Confirmed with his transplant team at [facility] that he can receive not irradiated packed red cells. Although he is not hypotensive we will start initial transfusion of 1 unit packed red cells here in the ER. I have spoken with the patient service technician pst myself and they are in the process of rapidly crossmatching and will be able to start the transfusion prior to expected arrival of EMS. Also TXA 1 g IV for to help control internal bleeding is given. He will be transferred on an emergent basis from the ER here in [place] to the ER at [facility]. There is very poor weather and dangerous traveling conditions, but at this point with life-threatening internal bleeding and life-threatening anemia, the benefit of transfer for definitive care outweighs the risk. Discussed with EMS dispatch. Lab Data Labs: Lab Results 09/14/23 09/14/23 Range/Units 20:20 20:58 WBC 13.53 H (4.50-11.00) K/uL RBC 1.90 L (4.30-5.90) m/uL Hgb 6.3 L* (13.5-17.5) gm/dL Hct 19.1 L (37.0-53.0) % MCV 101 H (80-100) fL MCH 33 (26-34) pg MCHC 33 (32-36) gm/dL RDW Coeff of Hilda 15.0 (11.5-15.5) % Plt Count 492 H (140-440) K/uL Neut % (Auto) 47.0 (42.0-72.0) % Lymph % (Auto) 36.1 (20-44) % Bradley % (Auto) 15.3 H (0.0-11.0) % Eos % (Auto) 0.7 (0.0-7.0) % Baso % (Auto) 0.2 (0.0-3.0) % Neut # (Auto) 6.40 (1.7-7.0) K/uL Lymph # (Auto) 4.90 H (0.90-2.90) K/uL Bradley # (Auto) 2.10 H (0.00-0.90) K/UL Eos # (Auto) 0.10 (0.00-0.50) K/uL Baso # (Auto) 0.00 (0.00-0.30) K/uL Abs Immat Gran (auto) 0.10 (0.00-0.30) K/uL Imm/Tot Granulo (auto) 0.7 % Sodium 128 L (135-149) mmol/L Potassium 4.4 (3.6-5.1) mmol/L Chloride 93 L (96-114) mmol/L Carbon Dioxide 15 L (20-32) mmol/L Anion Gap 20 H (7-15) mEq/L BUN 99 H (7-30) mg/dL Creatinine 5.5 H (0.5-1.5) mg/dL Estimated Creat Clear 12.68 Estimated GFR 11 ml/min Glucose 233 H (60-115) mg/dL Lactate 4.7 H* (0.5-1.9) mmol/L Calcium 8.9 (8.4-10.6) mg/dL Magnesium 3.6 H (1.5-2.6) mg/dL Total Bilirubin 0.5 (0.1-1.5) mg/dL AST 31 (12-35) U/L ALT 27 (4-50) U/L Alkaline Phosphatase 210 H (40-150) U/L Total Protein 7.3 (6.0-8.3) g/dL Albumin 4.5 (3.3-5.0) g/dL Ethyl Alcohol < 0.01 L (0.01-0.03) % Blood Type O Positive Antibody Screen NEGATIVE Crossmatch (AHG) See Detail Imaging Data CT scan - abdomen: Attestation: I have reviewed the pertinent imaging results. My impression: Reviewed in the CT room is the images came off the scanner. There was a large fluid collection or mass in the area around the left kidney. Unclear if this is actually a left kidney inside the mass or not. Could be a large hematoma or abscess. Does not appear to communicate with the aorta. No definite free air. Does not appear to communicate with the descending colon, spleen appears to be normal. Radiologist's impression: Preliminary Report: Prior comparison CT not currently available. Enlargement and heterogeneity of the left kidney likely secondary to hemorrhage. Large amount of retroperitoneal hemorrhage surrounding the left kidney in the left perirenal and pararenal spaces. Moderate atrophy of the right kidney. Perihepatic surgical clips. Report called to Dr. Benitez at 9:15 p.m. 09/04/2023 ECG Data Attestation: I personally reviewed and interpreted this ECG as follows: Interpretation: Sinus rhythm with premature atrial complexes. Rate 73. NM 148. QRS axis normal axis. No pathologic Q-waves. ST segment/T wave: Wandering baseline and artifact in leads [address] segment elevation or depression. QTc: Prolonged QT. 484 Critical Care Time Critical Care Time Critical Care Time: Yes Attestation: The patient required my highest level preparedness to intervene emergently and I personally spent this critical care time directly and personally managing the patient. This critical care time included: Obtaining a history; Examining the patient; Pulse oximetry; Ordering and reviewing of studies; Arranging urgent treatment with development of a management plan; Evaluation of patients response to treatment; Frequent reassessment discussions with other providers. This critical care time was performed to assess and manage the high probability of imminent life-threatening deterioration that could result in multiorgan failure. It was exclusive of separate billable procedures and treating other patients and teaching time. Total Critical Care Time in Minutes: 35 Discharge Plan Discharge Clinical Impression: Anemia, Retroperitoneal bleed, Renal hemorrhage, left Patient Disposition: [facility] Prescriptions: No Action albuterol sulfate 90 mcg/actuation HFA aerosol inhaler 2 puff inhalation Q6H PRN aspirin [Adult Low Dose Aspirin] 81 mg tablet,delayed release (DR/EC) 81 mg PO QDAY atorvastatin 10 mg tablet 10 mg PO QDAY azelastine 137 mcg (0.1 %) aerosol,spray 1 spray intranasal BID Rx Instructions: administer into each nostril benzonatate 100 mg capsule 100 mg PO BID PRN budesonide [Pulmicort] 0.25 mg/2 mL suspension for nebulization 0.5 mg inhalation QDAY coenzyme Q10 100 mg capsule 100 mg PO QDAY ipratropium bromide 21 mcg (0.03 %) spray,non-aerosol 2 spray intranasal BID Rx Instructions: administer into each nostril lamotrigine [Lamictal] 200 mg tablet 200 mg PO BID levothyroxine 25 mcg capsule 25 mcg PO QDAY loratadine 10 mg tablet 10 mg PO QDAY montelukast [Singulair] 10 mg tablet 10 mg PO QDAY mycophenolate mofetil [CellCept] 500 mg tablet 500 mg PO Q12H nifedipine [Procardia XL] 30 mg tablet extended release 24hr 30 mg PO QDAY ondansetron HCl 4 mg tablet 4 mg PO Q8H prednisone 5 mg tablet 5 mg PO QDAY tacrolimus [Prograf] 0.5 mg capsule 1.5 mg PO Q12H torsemide 10 mg tablet 10 mg PO QAM trazodone 100 mg tablet 100 mg PO QDAY Trelegy Ellipta 200-62.5-25 mcg blister with device 1 inh inhalation QDAY sulfamethoxazole-trimethoprim [Bactrim] 400-80 mg tablet 1 tab PO BID voriconazole [Vfend] 200 mg tablet 200 mg PO Q12H Rx Instructions: administer on empty stomach, at least 1 hour before or after meal(s) prednisone 20 mg tablet 20 mg PO BID Qty: 10 0RF hydrocodone-acetaminophen 5-325 mg tablet 1 tab PO Q4-6H PRN (Reason: pain) Qty: 20 0RF oxycodone 5 mg capsule 5 mg PO QID PRN (Reason: pain) Qty: 20 0RF Rx Instructions: 1-2 tabs every 4-6 hours p.r.n. pain. gabapentin 100 mg capsule See Rx Instructions .ROUTE .COMPLEX Qty: 20 0RF Rx Instructions: 100 mg orally every other day after dialysis. Stand Alone Forms: [facility] Info Instructions
--- NOTE | 2023-09-14 20:21 | CT_ITS ---
Patient: JOSE ALEJANDRO CUELLO Facility:?[facility] Patient ID:?[id number] Site Patient ID:?[id number]. Site :?[id number] Study:?CT-Abdomen/Pelvis without contrast-09/14/2023 8:50:32 PM Ordering Physician:Koby Final Report: INDICATION: Sudden onset abdominal pain. COMPARISON: CT abdomen and pelvis with intravenous contrast 03/02/2023. TECHNIQUE: CT abdomen pelvis without and with oral contrast; coronal and sagittal reformats. FINDINGS: No nodular densities through the lung bases. No evidence of pleural effusion. Normal size cardiac silhouette without any pericardial effusion. Coronary artery calcifications. No focal hepatic or splenic pathology. A 2.5 x 1.3 cm cystic lesion tail of the pancreas possibly along with some other cystic lesions throughout the pancreas; difficult to adequately assess this without intravenous contrast. Status post cholecystectomy. The right adrenal is unremarkable. Small atrophic right kidney with hemorrhagic and nonhemorrhagic cysts involving the right kidney. Left perinephric retroperitoneal hemorrhage displacing the kidney anteriorly and superiorly. There is also evidence of subcapsular hemorrhage. The cause for the hemorrhage is not evident. The left adrenal gland is incorporated within the hemorrhage. No pneumoperitoneum or intestinal obstruction. CT of the pelvis is unremarkable. IMPRESSION: 1. large left retroperitoneal/perinephric hemorrhage; cause is not evident; close follow-up suggested to rule out underlying pathology; on the previous CT from March 02, 2023 there was significant respiratory motion compromising the quality of the study and there was a lesion involving the lower pole left kidney at that time that probably needs further evaluation with dedicated CT or MRI with intravenous contrast. 2. Cystic lesions pancreas; further assessment with MRCP suggested Please note that all CT scans at this facility use dose modulation, iterative reconstruction, and/or weight-based dosing when appropriate to reduce radiation dose to as low as reasonably achievable. Dictated by Joel Roca MD @ 09/18/2023 7:26:04 AM Signed by:Anju Roca MD @09/18/2023 7:26:04 AM (Electronic Signature)
[2023-09-14] MEDS: fentaNYL 100 MCG/2 ML inj 50 MCG IVP ×3 (20:22→21:10)
[2023-09-14 20:29] LABS: Basophils Percent Auto 0.2 % (0.0-3.0); Eosinophils Percent Auto 0.7 % (0.0-7.0); Hematocrit 19.1 % (37.0-53.0); Immature Granulocytes Pct Auto 0.7 %; Lymphocytes Percent Auto 36.1 % (20-44); Mean Corpuscular HGB Conc 33 gm/dL (32-36); Mean Corpuscular Hemoglobin 33 pg (26-34); Mean Corpuscular Volume 101 fL (80-100); Monocytes Percent Auto 15.3 % (0.0-11.0); Platelet Count* 492 K/uL (140-440); White Blood Count* 13.53 K/uL (4.50-11.00)
[2023-09-14 20:31] LABS: Lactate Sepsis w/Reflex* 4.7 mmol/L (0.5-1.9)
[2023-09-14 20:47] LABS: Albumin* 4.5 g/dL (3.3-5.0); Chloride* 93 mmol/L (96-114)
[2023-09-14 20:48] LABS: Hemoglobin* 6.3 gm/dL (13.5-17.5); Potassium* 4.4 mmol/L (3.6-5.1); Slide Review Reflex No; Sodium* 128 mmol/L (135-149)
[2023-09-14 20:50] LABS: Anion Gap 20 mEq/L (7-15); Aspartate Amino Transferase* 31 U/L (12-35); Bilirubin Total* 0.5 mg/dL (0.1-1.5); Blood Urea Nitrogen* 99 mg/dL (7-30); Carbon Dioxide* 15 mmol/L (20-32); Creatinine* 5.5 mg/dL (0.5-1.5); Est. Creatinine Clearance* 12.68; Estimated Glomerular Filt Rate 11 ml/min; Magnesium* 3.6 mg/dL (1.5-2.6); Total Protein* 7.3 g/dL (6.0-8.3)
[2023-09-14 20:51] LABS: Alanine Aminotransferase* 27 U/L (4-50); Alkaline Phosphatase* 210 U/L (40-150); Calcium* 8.9 mg/dL (8.4-10.6); Glucose* 233 mg/dL (60-115)
--- NOTE | 2023-09-14 20:51 | ED.NURSE ---
informed of critical lab values.
[2023-09-14 20:52] LABS: Ethanol* < 0.01 % (0.01-0.03)
[2023-09-14] MEDS: PIPERACILLIN/TAZOBACTAM 2.25 GM in 0.9 % SODIUM CHLORIDE Mini-bag 100 ML IVPB (20:56)
[2023-09-14] MEDS: TRANEXAMIC ACID 100 MG/ML INJ 1000 MG IV (21:26)
[2023-09-14] MEDS: HYDROmorphone 0.5 mg/0.5 ml inj 1 MG IVP (21:35)
--- NOTE | 2023-09-14 22:05 | ED.NURSE ---
blood started prior to transport, sent with EMS, will transfuse in transport.
[2023-09-14] MEDS: HYDROmorphone 0.5 mg/0.5 ml inj IVP ×4 (22:17→22:20)
== END 2023-09-14 22:23 | disposition short-term general hospital (02) ==
PROVIDERS: Emergency Provider Emergency Medicine; PCP Surgery
DX: K68.3 Retroperitoneal hematoma (principal); N28.89 Other specified disorders of kidney and ureter; D64.9 Anemia, unspecified
CPT/HCPCS: 36415; 36430; 74176; 80053; 81001; 82077; 83605; 83735; 85025; 86850; 86900; 86901; 86922; 87040; 93005; 94761; 96365; 96375; 99285; 99291; J1170; J2543; J3010; P9016

== ENCOUNTER 2023-09-14 22:05 | Outpatient (CLI) | payer MEDICARE, BC, SELFPAY | END 2023-09-14 22:06 | disposition home or self-care (01) | LOC: AMB 09-16 03:48 | PROVIDERS: PCP Surgery; Visit Provider Emergency Medicine | DX: R10.9 Unspecified abdominal pain (principal) | CPT/HCPCS: A0425; A0434 ==

== ENCOUNTER 2023-09-19 00:07 | Emergency (ER) | payer MEDICARE, BC, SELFPAY ==
--- NOTE | 2023-09-19 00:13 | ED.GENADULT ---
HPI - General Adult General Time Seen by Provider: 00:13 Date Seen: 09/19/23 Chief complaint: Constipation Stated complaint: Constipation Time Seen by Provider: 09/19/23 00:13 Source: patient Mode of arrival: ambulatory Limitations: no limitations History of Present Illness HPI narrative: 68-year-old male with history of renal transplant who presents today with concern for constipation. Reviewed patient's most recent emergency department visit from September 13 the patient was seen with flank pain, found to have a retroperitoneal hemorrhage with acute blood loss anemia, blood transfusion TXA were given and patient was transferred to [facility]. Patient was apparently discharged from [facility] today, comes in tonight with concern for constipation. Says his abdomen feels distended and bloated. No rectal fullness started feeling of needing to defecate. Says he has not had a bowel movement in several days. Says he is urinating okay. A little bit of shortness of breath which he attributes to his abdominal distension. No cough, no fever. Related Data Home Medications Medication Instructions Recorded Confirmed albuterol sulfate 90 mcg/actuation 2 puff inhalation Q6H PRN 03/29/22 08/29/22 aerosol inhaler aspirin 81 mg tablet,delayed 81 mg PO QDAY 03/29/22 08/29/22 release (Adult Low Dose Aspirin) atorvastatin 10 mg tablet 10 mg PO QDAY 03/29/22 08/29/22 azelastine 137 mcg (0.1 %) nasal 1 spray intranasal BID 03/29/22 08/29/22 spray aerosol benzonatate 100 mg capsule 100 mg PO BID PRN 03/29/22 08/29/22 budesonide 0.25 mg/2 mL suspension 0.5 mg inhalation QDAY 03/29/22 08/29/22 for nebulization (Pulmicort) coenzyme Q10 100 mg capsule 100 mg PO QDAY 03/29/22 08/29/22 fluticasone fur. 200 mcg-umeclid 1 inh inhalation QDAY 03/29/22 08/29/22 62.5 mcg-vilant 25 mcg inhalat.powder (Trelegy Ellipta) ipratropium bromide 21 mcg (0.03 2 spray intranasal BID 03/29/22 08/29/22 %) nasal spray lamotrigine 200 mg tablet 200 mg PO BID 03/29/22 08/29/22 (Lamictal) levothyroxine 25 mcg capsule 25 mcg PO QDAY 03/29/22 08/29/22 loratadine 10 mg tablet 10 mg PO QDAY 03/29/22 08/29/22 montelukast 10 mg tablet 10 mg PO QDAY 03/29/22 08/29/22 (Singulair) mycophenolate mofetil 500 mg 500 mg PO Q12H 03/29/22 08/29/22 tablet (CellCept) nifedipine 30 mg tablet,extended 30 mg PO QDAY 03/29/22 08/29/22 release 24 hr (Procardia XL) ondansetron HCl 4 mg tablet 4 mg PO Q8H 03/29/22 08/29/22 prednisone 5 mg tablet 5 mg PO QDAY 03/29/22 08/29/22 sulfamethoxazole 400 1 tab PO BID 03/29/22 08/29/22 mg-trimethoprim 80 mg tablet (Bactrim) tacrolimus 0.5 mg capsule, 1.5 mg PO Q12H 03/29/22 08/29/22 immediate-release (Prograf) torsemide 10 mg tablet 10 mg PO QAM 03/29/22 08/29/22 trazodone 100 mg tablet 100 mg PO QDAY 03/29/22 08/29/22 voriconazole 200 mg tablet (Vfend) 200 mg PO Q12H 03/29/22 08/29/22 Previous Rx's Medication Instructions Recorded hydrocodone 5 mg-acetaminophen 325 1 tab PO Q4-6H PRN pain #20 tabs 04/13/22 mg tablet prednisone 20 mg tablet 20 mg PO BID #10 tabs 07/09/22 gabapentin 100 mg capsule See Rx Instructions .Route 02/14/23 .COMPLEX #20 caps oxycodone 5 mg capsule 5 mg PO QID PRN pain #20 caps 02/14/23 Allergies Allergy/AdvReac Type Severity Reaction Status Date / Time cefixime Allergy Intermediate Diarrhea Verified 03/02/23 23:13 quetiapine Allergy Intermediate Edema Verified 03/02/23 23:13 ciprofloxacin Allergy Unknown Verified 03/02/23 23:13 citalopram Allergy Unknown Verified 03/02/23 23:13 [facility] PFS Social History Smoking Status: Former smoker How often do you have a drink containing alcohol: never AUDIT-C Alcohol total score: 0 Non-prescribed substance use: denies use Exam Narrative: Exam Narrative: General: Well-developed and well-nourished, no acute distress Head: Atraumatic and normocephalic Eyes: Pupils are equal reactive, extraocular motions intact, conjunctiva clear ENT: External nose and ears are normal, posterior pharynx without erythema or exudate Neck: No midline cervical tenderness, full spontaneous range of motion the neck, trachea midline, no adenopathy Heart: Regular rate and rhythm no murmurs or thrills Lungs: Clear to auscultation bilaterally without wheezes or crackles Abdomen: Abdominal distension with hyperactive bowel sounds, no tenderness Musculoskeletal: No tenderness, deformity, or edema Neurologic: Awake, alert, and oriented x3, no gross focal neurologic deficits, cranial nerves intact as tested Psych: Mood and affect are appropriate Skin: No rashes Const: Vital Signs, click to edit/add: Vital Signs - 24 hr 09/19/23 00:17 Temperature 98.4 F Pulse Rate [Pulse Oximeter] 90 Respiratory Rate 16 Blood Pressure [Ri ght Upper Arm] 138/73 Pulse Oximetry 99 Oxygen Delivery Me thod Room Air Course Course ED Course: Patient seen and examined, prior records are reviewed. Patient presents today with abdominal distension in the setting of recent retroperitoneal hemorrhage in acute blood loss anemia. Patient is finally stable, does note a little bit of shortness of breath the lungs are clear. Abdomen is distended with hyperactive bowel sounds. Labs are ordered along with CT scan to evaluate for cause of patient's abdominal distension. If this demonstrates large stool burden patient can certainly be given laxatives and consider enema although he has no sensation of rectal fullness and this does not seem to represent is fecal impaction. If other source of intra-abdominal distension seen including bowel obstruction, increased hemorrhage, or other cause, this will be addressed. Reevaluation(s) Time of Reevaluation #1: 01:06 Reevaluation #1: CT scan of the abdomen and pelvis independently interpreted by me read demonstrates hematoma around the left kidney, moderate stool in the ascending colon, minimal stool in the descending colon, empty rectum. Hemorrhage approximately stable from prior CT. Given absence of contrast, unable to really evaluate for increased hemorrhage. Patient is vitally stable in the department. Labs are pending. Time of Reevaluation #2: 01:27 Reevaluation #2: Labs independently interpreted by me with hemoglobin 8.3, patient reports hemoglobin at [facility] this morning is 7.6 so no evidence for acute hemorrhage. Patient's sensation of abdominal fullness is due to blood products in addition to mild constipation, patient should take MiraLax and Colace as prescribed by male, no indication for more aggressive treatment of constipation at this time Time of Reevaluation #3: 01:52 Reevaluation #3: Labs independently interpreted by me with reassuring hepatic panel, basic panel with a creatinine 3.1 consistent with dialysis status Vital Signs Vital signs: Initial Vital Signs Temperature 98.4 F 09/19/23 00:17 Temperature Source Temporal Artery Scan 09/19/23 00:17 Pulse Rate 90 09/19/23 00:17 Respiratory Rate 16 09/19/23 00:17 Blood Pressure 138/73 09/19/23 00:17 Blood Pressure Mean 94 09/19/23 00:17 Blood Pressure Position Sitting 09/19/23 00:17 Pulse Oximetry 99 09/19/23 00:17 Oxygen Delivery Method Room Air 09/19/23 00:17 Vital Signs Temperature 98.4 F 09/19/23 00:17 Pulse Rate 90 09/19/23 00:17 Respiratory Rate 16 09/19/23 00:17 Blood Pressure 138/73 09/19/23 00:17 Pulse Oximetry 99 09/19/23 00:17 Oxygen Delivery Method Room Air 09/19/23 00:17 Temperature 98.4 F 09/19/23 00:17 Pulse Rate 90 09/19/23 00:17 Respiratory Rate 16 09/19/23 00:17 Blood Pressure 138/73 09/19/23 00:17 Pulse Oximetry 99 09/19/23 00:17 Oxygen Delivery Method Room Air 09/19/23 00:17 Medical Decision Making Lab Data Labs: Lab Results 09/19/23 Range/Units 00:40 WBC 5.76 (4.50-11.00) K/uL RBC 2.64 L (4.30-5.90) m/uL Hgb 8.3 L (13.5-17.5) gm/dL Hct 25.2 L (37.0-53.0) % MCV 96 (80-100) fL MCH 31 (26-34) pg MCHC 33 (32-36) gm/dL RDW Coeff of Hilda 15.5 (11.5-15.5) % Plt Count 181 (140-440) K/uL Neut % (Auto) 67.5 (42.0-72.0) % Lymph % (Auto) 19.8 L (20-44) % [place] % (Auto) 10.6 (0.0-11.0) % Eos % (Auto) 1.2 (0.0-7.0) % Baso % (Auto) 0.2 (0.0-3.0) % Neut # (Auto) 3.89 (1.7-7.0) K/uL Lymph # (Auto) 1.10 (0.90-2.90) K/uL [place] # (Auto) 0.60 (0.00-0.90) K/UL Eos # (Auto) 0.07 (0.00-0.50) K/uL Baso # (Auto) 0.01 (0.00-0.30) K/uL Abs Immat Gran (auto) 0.04 (0.00-0.30) K/uL Imm/Tot Granulo (auto) 0.7 % Diff Slide Review Acceptable Review (Acceptable) Sodium 132 L (135-149) mmol/L Potassium 4.1 (3.6-5.1) mmol/L Chloride 94 L (96-114) mmol/L Carbon Dioxide 28 (20-32) mmol/L Anion Gap 10 (7-15) mEq/L BUN 30 (7-30) mg/dL Creatinine 3.1 H (0.5-1.5) mg/dL Estimated Creat Clear 22.49 Estimated GFR 21 ml/min Glucose 106 (60-115) mg/dL Calcium 9.3 (8.4-10.6) mg/dL Magnesium 2.3 (1.5-2.6) mg/dL Total Bilirubin 1.0 (0.1-1.5) mg/dL Direct Bilirubin 0.5 (0.0-0.5) mg/dL AST 32 (12-35) U/L ALT 24 (4-50) U/L Alkaline Phosphatase 148 (40-150) U/L Total Protein 7.1 (6.0-8.3) g/dL Albumin 4.1 (3.3-5.0) g/dL Discharge Plan Discharge Clinical Impression: Retroperitoneal bleed, Liver transplant recipient Patient Disposition: Home, Self-Care Condition: Stable Instructions: Constipation (DC) Additional Instructions: Take MiraLax and Colace as prescribed from [facility] Activity Level: No Restrictions Discharge Diet: Regular Prescriptions: No Action albuterol sulfate 90 mcg/actuation HFA aerosol inhaler 2 puff inhalation Q6H PRN aspirin [Adult Low Dose Aspirin] 81 mg tablet,delayed release (DR/EC) 81 mg PO QDAY atorvastatin 10 mg tablet 10 mg PO QDAY azelastine 137 mcg (0.1 %) aerosol,spray 1 spray intranasal BID Rx Instructions: administer into each nostril benzonatate 100 mg capsule 100 mg PO BID PRN budesonide [Pulmicort] 0.25 mg/2 mL suspension for nebulization 0.5 mg inhalation QDAY coenzyme Q10 100 mg capsule 100 mg PO QDAY ipratropium bromide 21 mcg (0.03 %) spray,non-aerosol 2 spray intranasal BID Rx Instructions: administer into each nostril lamotrigine [Lamictal] 200 mg tablet 200 mg PO BID levothyroxine 25 mcg capsule 25 mcg PO QDAY loratadine 10 mg tablet 10 mg PO QDAY montelukast [Singulair] 10 mg tablet 10 mg PO QDAY mycophenolate mofetil [CellCept] 500 mg tablet 500 mg PO Q12H nifedipine [Procardia XL] 30 mg tablet extended release 24hr 30 mg PO QDAY ondansetron HCl 4 mg tablet 4 mg PO Q8H prednisone 5 mg tablet 5 mg PO QDAY tacrolimus [Prograf] 0.5 mg capsule 1.5 mg PO Q12H torsemide 10 mg tablet 10 mg PO QAM trazodone 100 mg tablet 100 mg PO QDAY Trelegy Ellipta 200-62.5-25 mcg blister with device 1 inh inhalation QDAY sulfamethoxazole-trimethoprim [Bactrim] 400-80 mg tablet 1 tab PO BID voriconazole [Vfend] 200 mg tablet 200 mg PO Q12H Rx Instructions: administer on empty stomach, at least 1 hour before or after meal(s) prednisone 20 mg tablet 20 mg PO BID Qty: 10 0RF hydrocodone-acetaminophen 5-325 mg tablet 1 tab PO Q4-6H PRN (Reason: pain) Qty: 20 0RF oxycodone 5 mg capsule 5 mg PO QID PRN (Reason: pain) Qty: 20 0RF Rx Instructions: 1-2 tabs every 4-6 hours p.r.n. pain. gabapentin 100 mg capsule See Rx Instructions .ROUTE .COMPLEX Qty: 20 0RF Rx Instructions: 100 mg orally every other day after dialysis. Follow Up/Referrals: Ryan Cole MD [Primary Care Provider] - Stand Alone Forms: [facility] [place] [facility] Info Instructions
[2023-09-19 00:17] VITALS: BP 138/73; PULSE 90; RESP 16; TEMP 36.9; O2SAT 99; BMI 25.1
--- NOTE | 2023-09-19 00:29 | CT_ITS ---
Patient: JOSE ALEJANDRO CUELLO Facility:?[facility] Patient ID:?[id number] Site Patient ID:?[id number]. Site :?[id number] Study:?CT-Abdomen/Pelvis without contrast-09/19/2023 1:12:45 AM Ordering Physician:Mega Siddiqi Final Report: INDICATION: abd distension, s/p retroperitoneal bleed and renal stent placement. TECHNIQUE: CT abdomen and pelvis without contrast. COMPARISON: 09/14/23. FINDINGS: Limited evaluation of the intra-abdominal solid organs without IV contrast. Lower chest: Small left pleural effusion. Adjacent compressive atelectasis. Liver: Normal in size and attenuation. No suspicious masses. Gallbladder and bile ducts: Gallbladder is absent. . Pancreas: Redemonstrated multiple pancreatic cysts. Diffuse atrophy. Spleen: Normal in size. No masses. Adrenal glands: Left adrenal gland not well visualized due to retroperitoneal hemorrhage. Kidneys: Left perinephric hematoma. Surrounding perinephric stranding, likely extension of hemorrhage. There is some redistribution of the hemorrhage without significant increase in total volume. The pararenal space is expanded due. Extension of dense stranding inferiorly along the retroperitoneum. New metallic density in the inferior left renal artery, likely related to embolization. GI tract: Small hiatal hernia. Normal in caliber. No sign of mass or inflammation. Appendix not well visualized. Vasculature: Abdominal aorta is normal in caliber. Scattered calcifications. Lymph nodes: No lymphadenopathy. Peritoneum/Abdominal Wall: Small right fat containing inguinal hernia. No sign of mass or infiltration. No free air or significant free fluid. Pelvis: Unremarkable. No pelvic masses. Bones: Unremarkable for age. IMPRESSION: 1. Redemonstrated left retroperitoneal and perinephric hematoma, with some redistribution but without significant increase in total volume. 2. Interval probable embolization of the inferior left renal artery. 3. Redemonstrated lesion at the inferior pole of the left kidney. Prior recommendation still applies. 4. Redemonstrated pancreatic cysts. Prior recommendation still applies. Please note that all CT scans at this facility use dose modulation, iterative reconstruction, and/or weight-based dosing when appropriate to reduce radiation dose to as low as reasonably achievable. Dictated by Adriel Woods MD @ 09/19/2023 1:38:03 AM Signed by:?Adriel Woods MD @09/19/2023 1:38:03 AM (Electronic Signature)
[2023-09-19 00:59] LABS: Basophils Absolute Auto 0.01 K/uL (0.00-0.30); Basophils Percent Auto 0.2 % (0.0-3.0); Eosinophils Absolute Auto 0.07 K/uL (0.00-0.50); Eosinophils Percent Auto 1.2 % (0.0-7.0); Hematocrit 25.2 % (37.0-53.0); Hemoglobin* 8.3 gm/dL (13.5-17.5); Immature Granulocytes Abs Auto 0.04 K/uL (0.00-0.30); Immature Granulocytes Pct Auto 0.7 %; Lymphocytes Percent Auto 19.8 % (20-44); Mean Corpuscular HGB Conc 33 gm/dL (32-36); Mean Corpuscular Hemoglobin 31 pg (26-34); Mean Corpuscular Volume 96 fL (80-100); Monocytes Percent Auto 10.6 % (0.0-11.0); Neutrophils Absolute Auto 3.89 K/uL (1.7-7.0); Neutrophils Percent Auto 67.5 % (42.0-72.0); Platelet Count* 181 K/uL (140-440); RDW Coefficient of Variation % 15.5 % (11.5-15.5); Red Blood Count 2.64 m/uL (4.30-5.90); White Blood Count* 5.76 K/uL (4.50-11.00)
[2023-09-19 01:20] LABS: Slide Review Reflex Yes
[2023-09-19 01:21] LABS: Slide Review Acceptable Review (Acceptable)
[2023-09-19 01:43] LABS: Albumin* 4.1 g/dL (3.3-5.0); Chloride* 94 mmol/L (96-114); Sodium* 132 mmol/L (135-149)
[2023-09-19 01:44] LABS: Potassium* 4.1 mmol/L (3.6-5.1)
[2023-09-19 01:46] LABS: Alkaline Phosphatase* 148 U/L (40-150); Anion Gap 10 mEq/L (7-15); Aspartate Amino Transferase* 32 U/L (12-35); Bilirubin Direct* 0.5 mg/dL (0.0-0.5); Blood Urea Nitrogen* 30 mg/dL (7-30); Carbon Dioxide* 28 mmol/L (20-32); Creatinine* 3.1 mg/dL (0.5-1.5); Est. Creatinine Clearance* 22.49; Estimated Glomerular Filt Rate 21 ml/min; Total Protein* 7.1 g/dL (6.0-8.3)
[2023-09-19 01:47] LABS: Alanine Aminotransferase* 24 U/L (4-50); Calcium* 9.3 mg/dL (8.4-10.6); Glucose* 106 mg/dL (60-115); Magnesium* 2.3 mg/dL (1.5-2.6)
--- OUTSIDE RECORDS SUMMARY | 2023-09-26 11:50 | XMS_ITS | Encounter Summary ---
Author Name Unknown Organization [facility] Address [address] [place] [address]. [place] [address] Care Team Providers Care Obiee Obia Solution Architect Name Role Phone Sánchez Kowalski APRN FUSELAGE FRAMER Unavailable [phone] Marlen Esposito MD Unavailable [phone] Unavailable Unavail able Karen Stele Unavailable [phone] Marlen Esposito MD Unavailable Karen Steel Unavailable Sánchez Kowalski APRN FUSELAGE FRAMER Unavailable [phone] Unavailable Unavail able Ryan Cole MD Primary Care Provider Marlen Esposito MD Unavailable [phone] Reason for Visit * Reason Onset Date Comments Transplant Recipient Evaluation 07/21/2023 Encounter Details Date Type Department Care Team (Late st Contact Info) Description 07/21/[address] [facility] [address] [place] [address] Linnea Graff drug room clerk Recipient Evaluation Social History Tobacco Use Types Packs/Day Years Used Date Smoking Tobacco: Never Smokeless Tobacco: Never Alcohol Use Standard Drinks/Week Comments Not Currently 0 (1 standard drink = 0.6 oz pur e alcohol) no longer drinks alcohol Adolescent Education Answer Date Record ed Getting School Help Needed Not on file 03/18 Sex and Gender Information Value Date Recorded Sex Assigned at Male 03/27/2023 11:48 AM CDT Gender Identity Male 03/27/2023 11:48 AM CDT Sexual Orientation Not on file documented as of this encounter Miscellaneous Notes * Telephone Encounter - Linnea Graff RN - 07/21/2023 10:36 AM CST Called patient today and reached his BIA that I am calling to review the outcome of the Selection Committee Meeting last week. Left a brief voicemail that he needs to have stable liver function tests through September 08, 2023 and I need to call [facility] to see if he has wait time prior to starting dialysis. Instructed pt to continue his regular care with all of his providers at [facility]. Explained I willsend him a letter today in My Chart reflecting this and to let me know of any questions or concerns. Generated Transplant Evaluation Summary Letter today in [facility] - electronically sent to patient/ providers. DER SET UP OPERATOR documented in this encounter Plan of Treatment Not on file documented as of this encounter Visit Diagnoses Not on filedocumented in this encounter Care Teams Obiee Obia Solution Architect Relationship Specialty Start Date End Date Ryan Cole MD [address] [place] [address] PCP - General 06/02/23 Sánchez Kowalski, SPA DIRECTOR/FINANCE FUSELAGE FRAMER [address] [place] [address] [phone] Nurse Practitioner Nephrology 04/11/23 Marlen Esposito MD [address] [place] [address] [phone] Surgery 04/11/[address] [address] Registered Dietitian Dietitian, Registered 04/11/23 Karen Steel, [facility] Bee Farmer 04/11/23 Marlen Esposito MD [address] [place] [id number] Surgery 05/21/23 Karen Steel, [facility] Bee Farmer 05/21/23 Sánchez Kowalski APRN FUSELAGE FRAMER [address] [place] [phone] Nurse Practitioner Nephrology 05/21/[address] [place] [address] Registered Dietitian Dietitian, Registered 05/21/23 Marlen Esposito MD [address] [place] [id number] Assigned Surgical Provider 06/21/23 documented as of this encounter
--- OUTSIDE RECORDS SUMMARY | 2023-09-26 11:50 | XMS_ITS | Encounter Summary ---
Author Name Unknown Organization [facility] Address [address] [place] [address]. [place] [address] Care Team Providers Care Plant Maintenance Supervisor Name Role Phone Sánchez Kowalski APRN BARGE WORKER Unavailable Marlen Esposito MD Unavailable [phone] Unavailable Unavail able Karen Steel Unavailable [phone] Marlen Esposito MD Unavailable [phone] Karen Steel Unavailable [phone] Sánchez Kowalski APRN BARGE WORKER Unavailable [phone] Unavailable Unavail able Ryan Cole MD Primary Care Provider [phone] Marlen Esposito MD Unavailable [phone] Encounter Details Date Type Department Care Team (Late st Contact Info) Description 07/21/2023 [facility] [address] [place] [address] Linnea Graff RN Social History Tobacco Use Types Packs/Day Years [...] on file documented as of this encounter Plan of Treatment Not on file documented as of this encounter Visit Diagnoses Not on filedocumented in this encounter Care Teams Plant Maintenance Supervisor Relationship Specialty Start Date End Date Ryan Cole MD [address] [place] [address] PCP - General 06/02/23 Sánchez Kowalski APRN BARGE WORKER [address] [place] [address] [phone] Nurse Practitioner Nephrology 04/11/23 Marlen Esposito MD [address] [place] [address] [id number] MD Surgery 04/11/[address] [address] Registered Dietitian Dietitian, Registered 04/11/23 Karen Steel, [facility] Gem Expert 04/11/23 Marlen Esposito MD [address] [place] [address] [id number] Surgery 05/21/23 Karen Steel, [facility] Gem Expert 05/21/23 Sánchez Kowalski APRN BARGE WORKER [address] [place] [address] [phone] Nurse Practitioner Nephrology 05/21/[address] [address] Registered Dietitian Dietitian, Registered 05/21/23 Marlen Esposito MD [address] [place], [place] 879[address] Assigned Surgical Provider 06/21/23 documented as of this encounter
--- OUTSIDE RECORDS SUMMARY | 2023-09-26 11:50 | XMS_ITS | Encounter Summary ---
Author Name Unknown Organization [facility] Address [address] [place] [address]. [place] [address] Care Team Providers Care Screedman/Laborer Name Role Phone Sánchez Kowalski APRN PRACTICE MANAGEMENT CONSULTANT Unavailable Marlen Esposito MD Unavailable Patricia Willoughby RD Unavailable Unavail able Karen Steel Unavailable [phone] Marlen Esposito MD Unavailable [phone] Karen Steel Unavailable Sánchez Kowalski APRN PRACTICE MANAGEMENT CONSULTANT Unavailable [phone] Unavailable Unavail able Ryan Cole MD Primary Care Provider Marlen Esposito MD Unavailable [phone] Reason for Visit * Reason Onset Date Comments Transplant Recipient Evaluation 08/14/2023 [facility] Operator Call.Note Encounter Details Date Type Department Care Team (Late st Contact Info) Description 08/14/2023 Telephone [facility] [address] [place] [address] Linnea Graff RN Transplant Recipient Evaluation (Pre [facility] Transport Operator Call.Note) Social History Tobacco Use Types Packs/Day Years [...] Telephone Encounter - Linnea Graff RN - 08/14/2023 11:17 AM CST Returned call today to patient, reached his VM, LM I am returning his call. Explained I will try again later and he can try me again too. Spoke with pt when he returned my call. Pt asking if he can transfer his post liver care here, explained I will ask post liver tx coord. In the meantime pt stating he continues on azathioprine and has also been started on everolimus with LFT's improving. Explained I will review his status at next week's Kidney Transplant Selection Committee then. Pt expressed good understanding and agreement withthe plan. Staff message today to Madelin Cardenas RN post liver tx coord. NER ANIMAL documented in this encounter Plan of Treatment Not on file documented as of this encounter Visit Diagnoses Not on filedocumented in this encounter Care Teams Screedman/Laborer Relationship Specialty Start Date End Date Ryan Cole MD [address] [place] [address] PCP - General 06/02/23 Sánchez Kowalski, TRUCK RENTAL SERVICE ATTENDANT PRACTICE MANAGEMENT CONSULTANT [address] [place] [address] [phone] Nurse Practitioner Nephrology 04/11/23 Marlen Esposito MD [address] [place] [address] [phone] Surgery 04/11/[address] [address] Registered Dietitian Dietitian, Registered 04/11/23 Karen Steel, [facility] Gasoline Tractor Operator 04/11/23 Marlen Esposito MD [address] [place] [phone] Surgery 05/21/23 Karen Steel [facility] Gasoline Tractor Operator 05/21/23 Sánchez Kowalski APRN PRACTICE MANAGEMENT CONSULTANT [address] [place] [id number] Nurse Practitioner Nephrology 05/21/[address] [address] Registered Dietitian Dietitian, Registered 05/21/23 Marlen Esposito MD [address] [place] [id number] Assigned Surgical Provider 06/21/23 documented as of this encounter
--- OUTSIDE RECORDS SUMMARY | 2023-09-26 11:50 | XMS_ITS | Encounter Summary ---
Author Name Unknown Organization [facility] Address [address] [place] [address]. [place] [address] Care Team Providers Care Farm Equipment Service Technician Name Role Phone Sánchez Kowalski APRN INSTRUMENT CHECKER Unavailable Marlen Esposito MD Unavailable [phone] Unavailable Unavail able Karen Steel Unavailable [phone] Marlen Esposito MD Unavailable [phone] Karen Steel Unavailable [phone] Sánchez Kowalski APRN INSTRUMENT CHECKER Unavailable [phone] Unavailable Unavail able Ryan Cole MD Primary Care Provider Marlen Epsosito MD Unavailable [phone] Encounter Details Date Type Department Care Team (Late st Contact Info) Description 09/10/2023 [facility] Advice [facility] [address] [place] [address] Linnea Graff RN Social History [...] on filedocumented in this encounter Care Teams Farm Equipment Service Technician Relationship Specialty Start Date End Date Ryan Cole MD [address] [place] [address] PCP - General 06/02/23 Sánchez Kowalski APRN INSTRUMENT CHECKER [address] [place] [address] [phone] Nurse Practitioner Nephrology 04/11/23 Marlen Esposito MD [address] [place] [address] [id number] MD Surgery 04/11/[address] [address] Registered Dietitian Dietitian, Registered 04/11/23 Karen Steel, [facility] Fine Chemicals Operator 04/11/23 Marlen Esposito MD [address] [place] [address] [id number] Surgery 05/21/23 Karen Steel, [facility] Fine Chemicals Operator 05/21/23 Sánchez Kowalski APRN INSTRUMENT CHECKER [address] [place] [address] 085315 Nurse Practitioner Nephrology 05/21/[address] [address] Registered Dietitian Dietitian, Registered 05/21/23 Marlen Esposito MD [address] [place], [place] 817625 Assigned Surgical Provider 06/21/23 documented as of this encounter
--- OUTSIDE RECORDS SUMMARY | 2023-09-26 11:50 | XMS_ITS | Encounter Summary ---
Author Name Unknown Organization [facility] Address [address] [place] [address]. [place] [address] Care Team Providers Care Extruder Name Role Phone Sánchez Kowalski APRN SYSTEMS INTEGRATION ANALYST Unavailable Marlen Esposito MD Unavailable [phone] Unavailable Unavail able Karen Steel Unavailable [phone] Marlen Esposito MD Unavailable [phone] Karen Steel Unavailable [phone] Sánchez Kowalski APRN SYSTEMS INTEGRATION ANALYST Unavailable [phone] Unavailable Unavail able Ryan Cole MD Primary Care Provider [phone] Marlen Esposito MD Unavailable [phone] Encounter Details Date Type Department Care Team (Late st Contact Info) Description 08/13/2023 [facility] [place] [address] [place] [address] Linnea Graff RN Social History [...] on filedocumented in this encounter Care Teams Extruder Relationship Specialty Start Date End Date Ryan Cole MD [address] [place] [address] PCP - General 06/02/23 Sánchez Kowalski APRN SYSTEMS INTEGRATION ANALYST [address] [place] [address] 063195 Nurse Practitioner Nephrology 04/11/23 Marlen Esposito MD [address] [place] [address] [id number] MD Surgery 04/11/[address] [address] Registered Dietitian Dietitian, Registered 04/11/23 Karen Steel, [facility] Stator Connector 04/11/23 Marlen Esposito MD [address] [place] [address] [phone] Surgery 05/21/23 Karen Steel, [facility] Stator Connector 05/21/23 Sánchez Kowalski APRN SYSTEMS INTEGRATION ANALYST [address] [place] [address] 610295 Nurse Practitioner Nephrology 05/21/[address] [address] Registered Dietitian Dietitian, Registered 05/21/23 Marlen Esposito MD 9 [place], [place] [address]84[address] Assigned Surgical Provider 06/21/23 documented as of this encounter
--- OUTSIDE RECORDS SUMMARY | 2023-09-26 11:50 | XMS_ITS | Encounter Summary ---
Author Name Unknown Organization [facility] Address [address] [place] [address]. [place] [address] Care Team Providers Care Manager Lvn Name Role Phone Sánchez Kowalski APRN DISTRICT OPERATIONS MANAGER Unavailable Marlen Esposito MD Unavailable Patricia Willoughby RD Unavailable Unavail able Karen Steel Unavailable Marlen Esposito MD Unavailable [phone] Karen Steel Unavailable Sánchez Kowalski APRN DISTRICT OPERATIONS MANAGER Unavailable [phone] Unavailable Unavail able Ryan Cole MD Primary Care Provider Marlen Esposito MD Unavailable [phone] Reason for Visit * Reason Onset Date Comments Transplant Recipient Evaluation 09/10/2023 Pre Kidney Change Management Facilitator Call.Note.Letter - Declined as a kidney transplant candidate. Encounter Details Date Type Department Care Team (Late st Contact Info) Description 09/10/2023 Telephone [facility] [address] [place] [address] Linnea Graff boat loader Recipient Evaluation (Pre Kidney Change Management Facilitator Call.Note.Letter - Declined as a kidney transplant candidate. ) Social History Tobacco Use Types Packs/Day Years [...] Telephone Encounter - Linnea Graff RN - 09/10/2023 4:41 PM CDT Contacted patient to review outcome of selection committee meeting (See selection committee encounter). Explained to patient that he is declined as a kidney candidate at our Program due to multiple infectious history and co- morbidities. Patient asking for a provider appt to review our decision. Reviewed next steps based on outcomes: Kiln Cleaner to call pt to make appt with Dr. Valdes. Patient will not be listed because they are not a candidate-will receive: -A letter indicating why they did not meet criteria for transplant at [facility]. Confirmed that patient has contact information for additional questions or concerns. Pt expressed very good understanding of all and was in good agreement with the plan. Generated declined as a candidate letter today in [facility] - electronically sent to pt/ providers. documented in this encounter Plan of Treatment Not on file documented as of this encounter Visit Diagnoses Diagnosis ESRD (end stage renal disease) on dialysis (H)- Primary End stage renal disease History of liver transplant (H) Liver replaced by transplant Organ transplant candidate Awaiting organ transplant status Pre-transplant evaluation for kidney transplant S/P liver transplant (H) Liver replaced by transplant Essential hypertension Unspecified essential hypertension documented in this encounter Care Teams Manager Lvn Relationship Specialty Start Date End Date Ryan Cole MD [address] [place] [address] PCP - General 06/02/23 Sánchez Kowalski APRN DISTRICT OPERATIONS MANAGER [address] [place] [address] Nurse Practitioner Nephrology 04/11/23 Marlen Esposito MD [address] [place] [address] Surgery 04/11/[address] [address] Registered Dietitian Dietitian, Registered 04/11/23 Karen Steel, [facility] Crane Rigger 04/11/23 Marlen Esposito MD [address] [place] [address] Surgery 05/21/23 Karen Steel, [facility] Crane Rigger 05/21/23 Sánchez Kowalski APRN DISTRICT OPERATIONS MANAGER [address] [place] [address] Nurse Practitioner Nephrology 05/21/[address] [address] Registered Dietitijone Muse, Registered 05/21/23 Marlen Esposito MD [address] [place] [address] Assigned Surgical Provider 06/21/23 documented as of this encounter
--- OUTSIDE RECORDS SUMMARY | 2023-09-26 11:50 | XMS_ITS | Clinical Summary ---
Author Name Unknown Organization [facility] Address [address] [place] [address] Care Team Providers Care Wire Preparation Machine Tender Name Role Phone Sánchez Kowalski APRN SUPERVISOR ASSEMBLY AND PACKING Unavailable Marlen Esposito MD Unavailable [phone] Unavailable Unavail able Karen Steel AVIAN KEEPER Unavailable Marlen Esposito MD Unavailable Karen Steel AVIAN KEEPER Unavailable Sánchez Kowalski APRN SUPERVISOR ASSEMBLY AND PACKING Unavailable [phone] Unavailable Unavail able Ryan Cole MD Primary Care Provider Marlen Esposito MD Unavailable Allergies Active Allergy Reactions Criticality Noted Date Comments Aspirin Other (See Comments) 12/27/2011 Liver transplant Cefixime Diarrhea High 09/29/2015 C Diff Ciprofloxacin Other (See Comments) Medium 07/14/2013 Other Reaction(s): Intolerance-Can't Take, Other (see comments) Liver transplant Tendon pain Tendon pain, Liver transplant Citalopram Other (See Comments) High 07/14/2013 Other Reaction(s): Intolerance-Can't Take, Other (see comments) Liver transplant michell Michell, Liver transplant Erythromycin Other (See Comments) Low 09/09/2006 interacts with meds Erythromycin Base Other (See Comments) Medium 05/22/20 15 Due to medications, interacts with transplant medications Due to medications, interacts with transplant medications Ibuprofen Other (See Comments) High 11/04/2016 Other Reaction(s): Other (see comments) PT SHOULD NOT HAVE THIS MED R/T LIVER TRANSPLANT Olanzapine High 05/22/2015 Other Reaction(s): Muscle Weakness, Other (see comments) Joint pain Quetiapine Swelling,Other (See Comments) High 07/14/2013 Other Reaction(s): Intolerance-Can't Take, Other (see comments) Liver transplant Muscle pain and swelling Medications Medication Sig Dispensed Refills Start Date End Date Status amoxicillin (AMOXIL) 500 MG capsule TAKE 4 CAPSULES BY MOUTH BEFORE DENTAL APPOINTMENT 0 08/08/2022 Active atorvastatin (LIPITOR) 10 MG tablet Take 10 mg by mouth daily 0 10/08/2022 10/08/2023 Active azaTHIOprine (IMURAN) 50 MG tablet Take 50 mg by mouth 0 04/11/2023 Activ e B Wqeyoqo-O-Ztpic Acid (DAVE-DAVID RX) 1 mg TABS Take 1 tablet by mouth daily (with dinner) 0 09/08/2021 Active benzonatate (TESSALON) 100 MG capsule Take 100 mg by mouth 0 03/27/2023 Acti ve budesonide (PULMICORT) 0.5 MG/2ML neb solution [place] 0.5 mg in nostril 0 12/10/2022 12/10/2023 Active clindamycin (CLEOCIN T) 1 % external lotion Apply 1 Application topically 0 04/05/2023 Active co-enzyme Q-10 100 MG CAPS capsule daily 0 Active ipratropium (ATROVENT) 0.03 % nasal spray INHALE 2 SPRAYS IN EACH NOSTRIL TWICE DAILY, UP TO FIVE TIMES DAILY NEEDED 0 03/17/2023 Active ketoconazole (NIZORAL) 2 % external shampoo Apply 1 Application topically 0 11/05/2021 Active lamoTRIgine (LAMICTAL) 200 MG tablet Take 200 mg by mouth 2 times daily 0 Active levothyroxine (SYNTHROID/LEVOTHR OID) 50 MCG tablet Take 50 mcg by mouth 0 08/07/2022 Active loratadine (CLARITIN) 10 MG tablet TAKE 1 TABLET(10 MG) BY MOUTH EVERY DAY 0 03/27/2023 Active montelukast (SINGULAIR) 10 MG tablet Take 1 tablet by mouth at bedtime 0 05/29/2023 Active NIFEdipine ER OSMOTIC (PROCARDIA XL) 30 MG 24 hr tablet Take 90 mg by mouth 0 10/06/2021 10/03/2023 Activ e ondansetron (ZOFRAN) 4 MG tablet Take 4 mg by mouth 0 07/19/2022 Active sodium chloride inhalant 7 % NEBU neb solution USE AFTER NEBULIZATION WITH DUONEB IN THE MORNING AND AT NIGHT 0 Active torsemide (DEMADEX) 100 MG tablet Take 100 mg by mouth 0 03/18/2023 03/17/2024 Acti ve traZODone (DESYREL) 100 MG tablet Take 100 mg by mouth 0 08/27/2021 Acti ve Active Problems Problem Noted Date Diagnosed Date Acute pericardial effusion 03/24/2023 ESRD (end stage renal disease) on dialysis 01/23 Hypertensive kidney disease, stage V 11/20/2010 Essential hypertension 07/10/2007 History of liver transplant 07/16/2004 Overview: & 2012 On chronic immune suppression Encounters Date Type Department Care Team Description 09/10/2023 Telephone [facility] Trans[facility] [address] [place] [phone] Linnea Graff front office help Recipient Evaluation (Pre Kidney Signs Sales Representative Call.Note.Letter - Declined as a kidney transplant candidate. ) 09/10/2023 [facility]ice [facility] [address] [place] [phone] iLnnea Graff RN 09/01/2023 [facility] [address] [place] [phone] Linnea Graff, RN 08/14/2023 Telephone [facility] [address] [place] [phone] Linnea Graff front office help Recipient Evaluation (Pre Kidney Signs Sales Representative Call.Note) 08/13/2023 [facility] [address] [place] [phone] Linnea Graff, RN 07/27/2023 [facility] [address] [place] [phone] Linnea Graff, RN 07/21/2023 [facility] [address] [place] [phone] Linnea Graff, RN 07/21/2023 Telephone [facility] [address] [place] [phone] Linnea Graff, front office help Recipient Evaluation 07/21/2023 [facility] [address] [place] [phone] Linnea Graff, RN 07/15/2023 [facility] [address] [place] [phone] Linnea Graff, RN 07/10/2023 [facility] [address] [place] [phone] Linnea Graff, RN from Last 3 Months Family History Medical History Relation Comments Coronary Artery Disease Father Skin Cancer Father Coronary Artery Disease Mother Valvular heart disease Mother Kidney Disease No family hx of Liver Disease No family hx of Relation Status Comments Father Mother Social History Tobacco Use Types Packs/Day Years Used Date Smoking Tobacco: Never Smokeless Tobacco: Never Tobacco Cessation:Counseling Given: Not Answered Alcohol Use Standard Drinks/Week Comments Not Currently 0 (1 standard drink = 0.6 oz pur e alcohol) no longer drinks alcohol Adolescent Education Answer Date Record ed Getting School Help Needed Not on file 03/18 Sex and Gender Information Value Date Recorded Sex Assigned at Male 03/27/2023 11:48 AM CDT Gender Identity Male 03/27/2023 11:48 AM CDT Sexual Orientation Not on file Last Filed Vital Signs Vital Sign Reading Time Taken Comments Blood Pressure - - Pulse - - Temperature - - Respiratory Rate - - Oxygen Saturation - - Inhaled Oxygen Concentration - - Weight 80.7 kg (178 lb) 06/02/2023 8:13 AM BRANDING MACHINE OPERATOR Height 175.3 cm (5' 9) 03/27/2023 11:56 AM CDT Body Mass Index 26.29 03/27/2023 11:56 AM CDT Plan of Treatment Health Maintenance Due Date Last Done Comments ADVANCE CARE PLANNING 1954 ANNUAL REVIEW OF HM ORDERS 1954 CT COLONOGRAPHY 1954 FIT 1954 FLEX SIG 1954 LIPID 1954 MICROALBUMIN 1954 PARATHYROID 1954 PHOSPHORUS 1954 TSH W/FREE T4 REFLEX 1954 sDNA (Cologuard) 1954 URINALYSIS 09/14/1955 HEPATITIS B IMMUNIZATION (3 of 5 - Risk Dialysis 4-dose series) 01/04/1999 12/07/1998, 12/07/1998, 07/06/1998, Additional history exists RSV VACCINE ( & 60+) (1 - 1-dose 60+ series) 2014 FALL RISK ASSESSMENT 09/14/2019 MEDICARE ANNUAL WELLNESS VISIT 09/14/2019 DTAP/TDAP/TD IMMUNIZATION (3 - Td or Tdap) 02/18/2022 02/19/2012, 05/11/2003, 05/11/2003 COLONOSCOPY 06/22/2022 06/22/2012 COLORECTAL CANCER SCREENING 06/22/2022 PHQ-2 (once per calendar year) 2023 BMP 09/01/2023 06/02/2023 HEMOGLOBIN 12/02/2023 06/02/2023 GLUCOSE 06/02/2026 06/02/2023 ZOSTER IMMUNIZATION Completed 01/06/2018, 8 INFLUENZA VACCINE Completed 03/23/2023, , 03/05/2021, Additional history exists Pneumococcal Vaccine: 65+ Years Completed 05/06/2023, 06/23/2014, 12/25/2012, Additional history exists COVID-19 Vaccine Completed 05/13/2023, , 01/21/2022, Additional history exists ALK PHOS Completed 06/02/2023 HEPATITIS C SCREENING Completed 06/02/2023 HPV IMMUNIZATION Aged Out No longer e ligible based on patient's age to complete this topic IPV IMMUNIZATION Aged Out No longer e ligible based on patient's age to complete this topic MENINGITIS IMMUNIZATION Aged Out No l onger eligible based on patient's age to complete this topic RSV MONOCLONAL ANTIBODY Aged Out No l onger eligible based on patient's age to complete this topic Care Teams Wire Preparation Machine Tender Relationship Specialty Start Date End Date Ryan Cole MD [address] [place] [address] PCP - General 06/02/23 Sánchez Kowalski, [facility] SUPERVISOR ASSEMBLY AND PACKING [address] [place] [address] [phone] Nurse Practitioner Nephrology 04/11/23 Marlen Esposito MD [address] [place] [address] [phone] Surgery 04/11/[address] [place] [address] Registered Dietitian Dietitian, Registered 04/11/23 Karen Steel, [facility] Appliance Parts Counter Clerk 04/11/23 Marlen Esposito MD [address] [place] [address] Surgery 05/21/23 Karen Steel, [facility] Appliance Parts Counter Clerk 05/21/23 Sánchez Kowalski APRN SUPERVISOR ASSEMBLY AND PACKING [address] [place] [address] Nurse Practitioner Nephrology 05/21/[address] [place] [address] Registered Dietitian Dietitian, Registered 05/21/23 Marlen Esposito MD [address] [place] [address] Assigned Surgical Provider 06/21/23
--- OUTSIDE RECORDS SUMMARY | 2023-09-26 11:50 | XMS_ITS | Referral Summary ---
Author Name Unknown Organization [facility] Address [address] [place] [address]. [place] [address] Care Team Providers Care Can Tender Name Role Phone Sánchez Kowalski APRN DOUBLE END TRIMMER Unavailable Marlen Esposito MD Unavailable Patricia Willoughby RD Unavailable Unavail able Karen Steel Unavailable [phone] Marlen Esposito MD Unavailable Karen Steel Unavailable Sánchez Kowalski APRN DOUBLE END TRIMMER Unavailable [phone] Unavailable Unavail able Ryan Cole MD Primary Care Provider [phone] Marlen Esposito MD Unavailable [phone] Encounters Date Type Department Care Team Description 09/10/[address] [facility] Trans[facility] [address] [place] [phone] Linnea Graff patient scheduler Recipient Evaluation (Pre Kidney Mandrel Cleaner Call.Note.Letter - Declined as a kidney transplant candidate. ) 09/10/2023 [facility] [address] [place] [phone] Linnea Graff RN 09/01/2023 [facility] [address] [place] [phone] Linnea Graff, RN 08/14/[address] [facility] [address] [place] [phone] Linnea Graff, patient scheduler Recipient Evaluation (Pre Kidney Mandrel Cleaner Call.Note) 08/13/[address] [facility] [address] [place] [phone] Linnea Graff, RN 07/27/[address] [facility] [address] [place] [phone] Linnea Graff, RN 07/21/[address] [facility] Transplant [address] [phone] Linnea Graff RN 07/21/[address] [facility] Transplant [address] [address] Linnea Graff patient scheduler Recipient Evaluation 07/21/[address] [facility] [address] [place] [phone] Linnea Graff, RN 07/15/[address] [facility] [address] [place] [phone] Linnea Graff, RN 07/10/[address] [facility] [address] [place] [phone] Linnea Graff, RN from Last 3 Months Allergies Active Allergy Reactions Criticality Noted Date [...] by mouth 0 04/11/2023 Activ e B Nzfcvjg-U-Zvidg Acid (DAVE-DAVID RX) 1 mg TABS Take 1 tablet by mouth daily (with dinner) 0 09/08/2021 Active benzonatate (TESSALON) 100 MG capsule Take 100 mg by mouth 0 03/27/2023 Acti ve budesonide (PULMICORT) 0.5 MG/2ML neb solution [place] 0.5 mg in nostril 0 12/10/2022 12/10/2023 [...] Overview: & 2012 On chronic immune suppression Social History Tobacco Use Types Packs/Day Years [...] 80.7 kg (178 lb) 06/02/2023 8:13 AM PLATING TANK OPERATOR Height 175.3 cm (5' 9) 03/27/2023 11:56 AM CDT Body Mass Index 26.29 03/27/2023 11:56 AM CDT Plan of Treatment Not on file Care Teams Can Tender Relationship Specialty Start Date End Date Ryan Cole MD [address] [place] [address] PCP - General 06/02/23 Sánchez Kowalski, INTERNATIONAL GUEST COORDINATOR DOUBLE END TRIMMER [address] [place] [address] [phone] Nurse Practitioner Nephrology 04/11/23 Marlen Esposito MD [address] [place] [address] Surgery 04/11/[address] [place] [address] Registered Dietitian Dietitian, Registered 04/11/23 Karen Steel LICSW Restaurant And Bar Manager 04/11/23 Marlen Esposito MD [address] [place] [address] [phone] Surgery 05/21/23 Karen Steel LICSW Restaurant And Bar Manager 05/21/23 Sánchez Kowalski APRN DOUBLE END TRIMMER [address] [place] [address] 556755 Nurse Practitioner Nephrology 05/21/[address] [place] [address] Registered Dietitian Dietitian, Registered 05/21/23 Marlen Esposito MD [address] [place] [address] [phone] Assigned Surgical Provider 06/21/23
--- OUTSIDE RECORDS SUMMARY | 2023-09-26 11:50 | XMS_ITS | Encounter Summary ---
Author Name Unknown Organization [facility] Address [address] [place] [address]. [place] [address] Care Team Providers Care House Carpenter Name Role Phone Sánchez Kowalski APRN MANAGER WINTER Unavailable Marlen Esposito MD Unavailable [phone] Unavailable Unavail able Karen Steel Unavailable [phone] Marlen Esposito MD Unavailable [phone] Karen Steel Unavailable [phone] Sánchez Kowalski APRN MANAGER WINTER Unavailable [phone] Unavailable Unavail able Ryan Cole MD Primary Care Provider [phone] Marlen Esposito MD Unavailable [phone] Encounter Details Date Type Department Care Team (Late st Contact Info) Description 07/21/2023 [facility] [place] [facility] [address] [place] [address] Linnea Graff RN Social History [...] on filedocumented in this encounter Care Teams House Carpenter Relationship Specialty Start Date End Date Ryan Cole MD [address] [place] [address] PCP - General 06/02/23 Sánchez Kowalski APRN MANAGER WINTER [address] [place] [address] [phone] Nurse Practitioner Nephrology 04/11/23 Marlen Esposito MD [address] [place] [address] [phone] MD Surgery 04/11/[address] [address] Registered Dietitian Dietitian, Registered 04/11/23 Karen Steel, [facility] Missile And Missile Checkout Technician 04/11/23 Marlen Esposito MD [address] [place] [address] [phone] Surgery 05/21/23 Karen Steel, [facility] Missile And Missile Checkout Technician 05/21/23 Sánchez Kowalski APRN MANAGER WINTER [address] [place] [address] [phone] Nurse Practitioner Nephrology 05/21/[address] [address] Registered Dietitian Dietitian, Registered 05/21/23 Marlen Esposito MD [address] [place], [place] [phone] Assigned Surgical Provider 06/21/23 documented as of this encounter
--- OUTSIDE RECORDS SUMMARY | 2023-09-26 11:50 | XMS_ITS | Encounter Summary ---
Author Name Unknown Organization [place] Address [address] [place] [address]. [place] [address] Care Team Providers Care Equipment Maintenance Tech Name Role Phone Sánchez Kowalski APRN POWER SCREWDRIVER OPERATOR Unavailable Marlen Esposito MD Unavailable [phone] Unavailable Unavail able Karen Steel Unavailable [phone] Marlne Esposito MD Unavailable [phone] Karen Steel Unavailable [phone] Sánchez Kowalski APRN POWER SCREWDRIVER OPERATOR Unavailable [phone] Unavailable Unavail able Ryan Cole MD Primary Care Provider Marlen Esposito MD Unavailable [phone] Encounter Details Date Type Department Care Team (Late st Contact Info) Description 07/15/2023 [facility] Medical Advice [facility] Trans[facility] Clinic 9 [place] [address] Linnea Graff RN Social History [...] on filedocumented in this encounter Care Teams Equipment Maintenance Tech Relationship Specialty Start Date End Date Ryan Cole MD [address] [place] [address] PCP - General 06/02/23 Sánchez Kowlaski APRN POWER SCREWDRIVER OPERATOR [address] [place] [address] 889365 Nurse Practitioner Nephrology 04/11/23 Marlen Esposito MD [address] [place] [address] 294695 MD Surgery 04/11/[address] [address] Registered Dietitian Dietitian, Registered 04/11/23 Karen Steel, [facility] Enterprise Application Architect 04/11/23 Marlen Esposito MD [address] [place] [address] 362645 Surgery 05/21/23 Karen Steel, [facility] Enterprise Application Architect 05/21/23 Sánchez Kowalski APRN POWER SCREWDRIVER OPERATOR [address] [place] [address] 683945 Nurse Practitioner Nephrology 05/21/[address] [address] Registered Dietitian Dietitian, Registered 05/21/23 Marlen Esposito MD 9 [place], [place] 576555 Assigned Surgical Provider 06/21/23 documented as of this encounter
--- OUTSIDE RECORDS SUMMARY | 2023-09-26 11:50 | XMS_ITS | Encounter Summary ---
Author Name Unknown Organization [place] Address [address] [place] [address]. [place] [address] Care Team Providers Care Fusing Machine Operator Name Role Phone Sánchez Kowalski APRN VEGETABLE THINNER Unavailable Marlen Esposito MD Unavailable [phone] Unavailable Unavail able Karen Steel Unavailable [phone] Marlen Esposito MD Unavailable [phone] Karen Steel Unavailable [phone] Sánchez Kowalski APRN VEGETABLE THINNER Unavailable [phone] Unavailable Unavail able Ryan Cole MD Primary Care Provider [phone] Marlen Esposito MD Unavailable [phone] Encounter Details Date Type Department Care Team (Late st Contact Info) Description 07/27/2023 [facility] [place] Advice [facility] Trans[facility] Clinic 9 [place] [address] Linnea Graff RN Social History [...] on filedocumented in this encounter Care Teams Fusing Machine Operator Relationship Specialty Start Date End Date Ryan Cole MD [address] [place] [address] PCP - General 06/02/23 Sánchez Kowalski APRN VEGETABLE THINNER [address] [place] [address] 944845 Nurse Practitioner Nephrology 04/11/23 Marlen Esposito MD [address] [place] [address] 822405 MD Surgery 04/11/[address] [address] Registered Dietitian Dietitian, Registered 04/11/23 Karen Steel, [facility] Sign Board Erector 04/11/23 Marlen Esposito MD [address] [place] [address] [phone] Surgery 05/21/23 Karen Steel, [facility] Sign Board Erector 05/21/23 Sánchez Kowalski APRN VEGETABLE THINNER [address] [place] [address] 743455 Nurse Practitioner Nephrology 05/21/[address] [address] Registered Dietitian Dietitian, Registered 05/21/23 Marlen Esposito MD 9 [place], [place] 417505 Assigned Surgical Provider 06/21/23 documented as of this encounter
--- OUTSIDE RECORDS SUMMARY | 2023-09-26 11:50 | XMS_ITS | Encounter Summary ---
Author Name Unknown Organization [place] Address [address] [place] [address]. [place] [address] Care Team Providers Care Paper Production Engineer Name Role Phone Sánchez Kowalski APRN COMMANDING OFFICER HOMICIDE SQUAD Unavailable Marlen Esposito MD Unavailable Patricia Willoughby RD Unavailable Unavail able Karen Steel Unavailable [phone] Marlen Esposito MD Unavailable [phone] Karen Steel Unavailable [phone] Sánchez Kowalski APRN COMMANDING OFFICER HOMICIDE SQUAD Unavailable [phone] Unavailable Unavail able Ryan Cole MD Primary Care Provider Marlen Esposito MD Unavailable [phone] Encounter Details Date Type Department Care Team (Late st Contact Info) Description 09/01/2023 [facility] [place] [facility] [address] [place] [address] Linnea Graff RN Social History [...] on filedocumented in this encounter Care Teams Paper Production Engineer Relationship Specialty Start Date End Date Ryan Cole MD [address] [place] [address] PCP - General 06/02/23 Sánchez Kowalski APRN COMMANDING OFFICER HOMICIDE SQUAD [address] [place] [address] 756625 Nurse Practitioner Nephrology 04/11/23 Marlen Esposito MD [address] [place] [address] 776885 MD Surgery 04/11/[address] [address] Registered Dietitian Dietitian, Registered 04/11/23 Karen Steel, [facility] Clothing Trades Workers 04/11/23 Marlen Esposito MD [address] [place] [address] [phone] Surgery 05/21/23 Karen Steel, [facility] Clothing Trades Workers 05/21/23 Sánchez Kowalski APRN COMMANDING OFFICER HOMICIDE SQUAD [address] [place] [address] 381355 Nurse Practitioner Nephrology 05/21/[address] [address] Registered Dietitian Dietitian, Registered 05/21/23 Mareln Esposito MD 9 [place], [place] 703565 Assigned Surgical Provider 06/21/23 documented as of this encounter
--- OUTSIDE RECORDS SUMMARY | 2023-09-26 11:51 | XMS_ITS | Encounter Summary ---
Author Name Unknown Organization [place] Address [address] [place] [address]. [place] [address] Care Team Providers Care Evaporator Name Role Phone Sánchez Kowalski APRN EDUCATION TECHNICIAN Unavailable [phone] Marlen Esposito MD Unavailable [phone] Unavailable Unavail able Karen Steel Unavailable Marlen Esposito MD Unavailable Karen Steel Unavailable Sánchez Kowalski APRN EDUCATION TECHNICIAN Unavailable Patricia Willoughby RD Unavailable Unavail able Ryan Cole MD Primary Care Provider [phone] Marlen Esposito MD Unavailable [phone] Encounter Details Date Type Department Care Team (Late st Contact Info) Description 06/06/2023 [facility] Transplant Clinic [address] [place] [address] Sánchez Kowalski APRN EDUCATION TECHNICIAN [address] [place] [address] Social History Tobacco Use Types Packs/Day Years [...] on filedocumented in this encounter Care Teams Evaporator Relationship Specialty Start Date End Date Ryan Cole MD [address] [place] [address] PCP - General 06/02/23 Sánchez Kowalski APRN EDUCATION TECHNICIAN [address] [place] [address] Nurse Practitioner Nephrology 04/11/23 Marlen Esposito MD [address] [place] [address] Surgery 04/11/[address] [place] [address] Registered Dietitian Dietitian, Registered 04/11/23 Karen Steel, [facility] Thermostat Repairer 04/11/23 Marlen Esposito MD [address] [place] [address] Surgery 05/21/23 Karen Steel FABRIC NORMALIZER Thermostat Repairer 05/21/23 Sánchez Kowalski APRN EDUCATION TECHNICIAN [address] [place] [address] 049065 Nurse Practitioner Nephrology 05/21/[address] [facility] [address] [facility] [address] [place] [address] Registered Dietitian Dietitian, Registered 05/21/23 Marlen Esposito MD 9 [place], [place] 966785 Assigned Surgical Provider 06/21/23 documented as of this encounter
--- OUTSIDE RECORDS SUMMARY | 2023-09-26 11:51 | XMS_ITS | Encounter Summary ---
Author Name Unknown Organization [place] Address [address] [place] [address]. [place] [address] Care Team Providers Care Forensic Investigator Name Role Phone Sánchez Kowalski APRN KITCHEN AND BATH DESIGNER Unavailable Marlen Esposito MD Unavailable [phone] Unavailable Unavail able Karen Steel Unavailable Marlen Esposito MD Unavailable [phone] Karen Steel Unavailable Sánchez Kowalski APRN KITCHEN AND BATH DESIGNER Unavailable [phone] Unavailable Unavail able Ryan Cole MD Primary Care Provider Marlen Esposito MD Unavailable [phone] Encounter Details Date Type Department Care Team (Late st Contact Info) Description 06/13/2023 Documentation Only [facility] Transplant Clinic [address] [place] [address] Scan, Non-Provider Social History Tobacco Use Types Packs/Day Years [...] on filedocumented in this encounter Care Teams Forensic Investigator Relationship Specialty Start Date End Date Ryan Cole MD [address] [place] [address] PCP - General 06/02/23 Sánchez Kowalski APRN KITCHEN AND BATH DESIGNER [address] [place] [address] 719985 Nurse Practitioner Nephrology 04/11/23 Marlen Esposito MD [address] [place] [address] [phone] MD Surgery 04/11/[address] [address] Registered Dietitian Donalitian, Registered 04/11/23 Karen Steel, [facility] Network Technician 04/11/23 Marlen Esposito MD [address] [place] [address] [phone] Surgery 05/21/23 Karen Steel GUIDE WINDER Network Technician 05/21/23 Sánchez Kowalski APRN KITCHEN AND BATH DESIGNER [address] [place] [address] 828115 Nurse Practitioner Nephrology 05/21/[address] [address] Registered Dietitian Dietitian, Registered 05/21/23 Marlen Esposito MD 9 [place] [address] Assigned Surgical Provider 06/21/23 documented as of this encounter
--- OUTSIDE RECORDS SUMMARY | 2023-09-26 11:51 | XMS_ITS | Encounter Summary ---
Author Name Unknown Organization [place] Address [address] [place] [address]. [place] [address] Care Team Providers Care Dietary Assistant Name Role Phone Sánchez Kowalski APRN FORESTRY BIOLOGY SPECIALIST Unavailable Marlen Esposito MD Unavailable [phone] Unavailable Unavail able Karen Steel WEASAND TRIMMER Unavailable Marlen Esposito MD Unavailable [phone] Karen Steel Unavailable [phone] Sánchez Kowalski APRN FORESTRY BIOLOGY SPECIALIST Unavailable [phone] Unavailable Unavail able Ryan Cole MD Primary Care Provider [phone] Marlen Esposito MD Unavailable [phone] Encounter Details Date Type Department Care Team (Late st Contact Info) Description 06/05/2023 [facility] Transplant Clinic [address] [place] [address] Marlen Esposito MD [address] [place] [address] Social History Tobacco Use Types Packs/Day [...] on filedocumented in this encounter Care Teams Dietary Assistant Relationship Specialty Start Date End Date Ryan Cole MD [address] [place] [address] PCP - General 06/02/23 Sánchez Kowalski APRN FORESTRY BIOLOGY SPECIALIST [address] [place] [address] Nurse Practitioner Nephrology 04/11/23 Marlen Esposito MD [address] [place] [address] Surgery 04/11/[address] [place] [address] Registered Dietitian Dietitian, Registered 04/11/23 Karen Steel, [facility] Eligibility Services Representative 04/11/23 Marlen Esposito MD [address] [place] [address] Surgery 05/21/23 Karen Steel WEASAND TRIMMER Eligibility Services Representative 05/21/23 Sánchez Kowalski APRN FORESTRY BIOLOGY SPECIALIST [address] [place] [address] 763965 Nurse Practitioner Nephrology 05/21/[address] [facility] [address] [facility] 84 [place] [address] Registered Dietitian Dietitian, Registered 05/21/23 Marlen Esposito MD 9 [place] [address] Assigned Surgical Provider 06/21/23 documented as of this encounter
--- OUTSIDE RECORDS SUMMARY | 2023-09-26 11:51 | XMS_ITS | Encounter Summary ---
Author Name Unknown Organization [place] Address [address] [place] [address]. [place] [address] Care Team Providers Care Vice President And Portfolio Manager Name Role Phone Sánchez Kowalski APRN PAINTER CHASSIS Unavailable [phone] Marlen Esposito MD Unavailable [phone] Unavailable Unavail able Karen Steel Unavailable Marlen Esposito MD Unavailable [phone] Karen Steel Unavailable [phone] Sánchez Kowalski APRN PAINTER CHASSIS Unavailable [phone] Unavailable Unavail able Ryan Cole MD Primary Care Provider Marlen Esposito MD Unavailable [phone] Encounter Details Date Type Department Care Team (Late st Contact Info) Description 06/13/2023 Documentation Only [facility] Transplant Clinic [address] [place] [address] Scan, Non-Provider Social History Tobacco [...] on filedocumented in this encounter Care Teams Vice President And Portfolio Manager Relationship Specialty Start Date End Date Ryan Cole MD [address] [place] [address] PCP - General 06/02/23 Sánchez Kowalski APRN PAINTER CHASSIS [address] [place] [address] 046885 Nurse Practitioner Nephrology 04/11/23 Marlen Esposito MD [address] [place] [address] 313675 MD Surgery 04/11/[address] [address] Registered Dietitian Donalitian, Registered 04/11/23 Karen Steel, [facility] Print Shop Manager 04/11/23 Marlen Esposito MD [address] [place] [address] 768375 Surgery 05/21/23 Karen Steel SECURITY CONSULTANT Print Shop Manager 05/21/23 Sánchez Kowalski APRN PAINTER CHASSIS [address] [place] [address] 448335 Nurse Practitioner Nephrology 05/21/[address] [address] Registered Dietitian Dietitian, Registered 05/21/23 Marlen Esposito MD 9 [place] [address] Assigned Surgical Provider 06/21/23 documented as of this encounter
--- OUTSIDE RECORDS SUMMARY | 2023-09-26 11:51 | XMS_ITS | Encounter Summary ---
Author Name Unknown Organization [place] Address [address] [place] [address]. [place] [address] Care Team Providers Care Writing Manager Name Role Phone Sánchez Kowalski APRN UNEMPLOYMENT CLAIMS ADJUDICATOR Unavailable Marlen Esposito MD Unavailable Patricia Willoughby RD Unavailable Unavail able Karen Steel Unavailable [phone] Marlen Esposito MD Unavailable [phone] Karen Steel Unavailable [phone] Sánchez Kowalski APRN UNEMPLOYMENT CLAIMS ADJUDICATOR Unavailable [phone] Unavailable Unavail able Ryan Cole MD Primary Care Provider [phone] Marlen Esposito MD Unavailable [phone] Encounter Details Date Type Department Care Team (Late st Contact Info) Description 06/20/2023 [facility] Medical Advice [facility] Transplant Clinic [address] [place] [address] Linnea Graff RN Social History [...] on filedocumented in this encounter Care Teams Writing Manager Relationship Specialty Start Date End Date Ryan Cole MD [address] [place] [address] PCP - General 06/02/23 Sánchez Kowalski APRN UNEMPLOYMENT CLAIMS ADJUDICATOR [address] [place] [address] 257575 Nurse Practitioner Nephrology 04/11/23 Marlen Esposito MD [address] [place] [address] 150315 MD Surgery 04/11/[address] [address] Registered Dietitian Dietitian, Registered 04/11/23 Karen Steel, [facility] Continuous Drier Helper 04/11/23 Marlen Esposito MD [address] [place] [address] [phone] Surgery 05/21/23 Karen Steel, [facility] Continuous Drier Helper 05/21/23 Sánchez Kowalski APRN UNEMPLOYMENT CLAIMS ADJUDICATOR [address] [place] [address] 525835 Nurse Practitioner Nephrology 05/21/[address] [address] Registered Dietitian Dietitian, Registered 05/21/23 Marlen Esposito MD 9 [place], [place] 664565 Assigned Surgical Provider 06/21/23 documented as of this encounter
--- OUTSIDE RECORDS SUMMARY | 2023-09-26 11:51 | XMS_ITS ---
Author Name Unknown Organization [place] Address [address] [place] [address]. [place] [address] Care Team Providers Care Engineer Assistant Name Role Phone Sánchez Kowalski APRN IMPERSONATOR CHARACTER Unavailable [phone] Marlen Esposito MD Unavailable [phone] Unavailable Unavail able Karen Steel PROCEDURES NURSE Unavailable [phone] Marlen Esposito MD Unavailable [phone] Karen Steel PROCEDURES NURSE Unavailable [phone] Sánchez Kowalski APRN IMPERSONATOR CHARACTER Unavailable [phone] Unavailable Unavail able Ryan Cole MD Primary Care Provider [phone] Marlen Esposito MD Unavailable [phone] Transplant Episode Kidney Candidate [facility] ([place], [place]) - [facility] Evaluation began on 06/09/2023 Marked as Declined on 09/11/2023 Reason: Does Not Meet Criteria Medical Kidney CoordinatorLinnea Graff RN Phone: N/A Fax: N/A Email: [email or web address] [email or web address] Score Value Updated Exceptions/Reas ons CPRA Not available EPTS (Calc) 49 09/26/2023 [place] 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, Specify - CNI toxicity Care Team Name Role Phone Fax Email Linnea A Siers, RN Kidney Coordinator N/A N/A [email or web address] Ryan Cole MD Referring Physician [phone] N/A Linnea Graff RN Head Setter N/A N/A [email or web address] Leonid Simon Wide Load Escort [phone] N/A Manda Hernandez, CARLOS MANAGER FORMS N/A N/A N/A Trung Plasencia Assigned Infectious Disease Provider [phone] N/A Otoniel Norwood DO Hand Lens Polisher [phone] N/A Events Pre-Transplant Referred: 03/18/2023 Evaluation began: 06/09/2023 Committee: 09/10/2023 Dialysis History Dialysis History Start End Type Comments Center [facility] Information Center Phone Fax Address [facility] [phone] [address] [facility] [place] [address]
--- OUTSIDE RECORDS SUMMARY | 2023-09-26 11:51 | XMS_ITS | Encounter Summary ---
Author Name Unknown Organization [place] Address [address] [place] [address]. [place] [address] Care Team Providers Care Child Welfare Counselor Name Role Phone Sánchez Kowalski APRN DRIVER MANAGER Unavailable Marlen Esposito MD Unavailable [phone] Unavailable Unavail able Karen Steel SPACE OPERATIONS OFFICER Unavailable [phone] Marlen Esposito MD Unavailable [phone] Karen Steel Unavailable [phone] Sánchez Kowalski APRN DRIVER MANAGER Unavailable [phone] Unavailable Unavail able System, Provider Not In Primary Care Provider Un available Ryan Cole MD Primary Care Provider [phone] Marlen Esposito MD Unavailable [phone] Encounter Details Date Type Department Care Team (Late st Contact Info) Description 04/11/2023 [facility] Medical Advice [facility] Transplant Clinic [address] [place] [address] Linnea Graff, [place] Social History Tobacco Use Types Packs/Day Years [...] on filedocumented in this encounter Care Teams Child Welfare Counselor Relationship Specialty Start Date End Date System, Provider Not In PCP - General Clinic 05/21/23 05/21/23 Ryan Cole MD [address] [place] [address] PCP - General 06/02/23 Sánchez Kowalski APRN DRIVER MANAGER [address] [place] [address] Nurse Practitioner Nephrology 04/11/23 Marlen Esposito MD [address] [place] [address] MD Surgery 04/11/[address] [address] Registered Dietitian Dietitian, Registered 04/11/23 Karen Steel, [facility] Planogrammer 04/11/23 Marlen Esposito MD [address] [place] [address] Surgery 05/21/23 Karen Steel SPACE OPERATIONS OFFICER Planogrammer 05/21/23 Sánchez Kowalski APRN DRIVER MANAGER [address] [place] [address] 481125 Nurse Practitioner Nephrology 05/21/[address] [facility] [address] [facility] 84 [place] [address] Registered Dietitian Dietitian, Registered 05/21/23 Marlen Esposito MD 9 [place], [place] 117335 Assigned Surgical Provider 06/21/23 documented as of this encounter
--- OUTSIDE RECORDS SUMMARY | 2023-09-26 11:51 | XMS_ITS | Encounter Summary ---
Author Name Unknown Organization [place] Address [address] [place] [address]. [place] [address] Care Team Providers Care Video Player Mechanic Name Role Phone Sánchez Kowalski APRN VASCULAR SONOGRAPHER Unavailable Marlen Esposito MD Unavailable [phone] Unavailable Unavail able Karen Steel Unavailable [phone] aMrlen Esposito MD Unavailable [phone] Karen Steel Unavailable [phone] Sánchez Kowalski APRN VASCULAR SONOGRAPHER Unavailable [phone] Unavailable Unavail able Ryan Cole MD Primary Care Provider [phone] Marlen Esposito MD Unavailable [phone] Encounter Details Date Type Department Care Team (Late st Contact Info) Description 06/18/2023 Orders Only [facility] [address] [place] [address] Outside, Provider Social History Tobacco Use Types Packs/Day Years [...] on file documented as of this encounter Procedures Procedure Name Priority Date/Time Associated Diagnosis Comments HLA RESULT REPORT 06/18/2023 1:05 PM STRIP FEEDER HLA RESULT REPORT 06/18/2023 1:05 PM STRIP FEEDER documented in this encounter Results * HLA RESULT REPORT (06/18/2023 1:05 PM STRIP FEEDER) Provider Outside LAB - IMMUNOLOGY ORD ERABLES * HLA RESULT REPORT (06/18/2023 1:05 PM STRIP FEEDER) Provider Outside LAB - IMMUNOLOGY ORD ERABLES documented in this encounter Visit Diagnoses Not on filedocumented in this encounter Care Teams Video Player Mechanic Relationship Specialty Start Date End Date Ryan Cole MD [address] [place] [address] PCP - General 06/02/23 Sánchez Kowalski APRN VASCULAR SONOGRAPHER [address] [place] [address] [phone] Nurse Practitioner Nephrology 04/11/23 Marlen Esposito MD [address] [place] [address] Surgery 04/11/[address] [place] [address] Registered Dietitian Dietitian, Registered 04/11/23 Karen Steel LICSW Grocery Store Associate 04/11/23 Marlen Esposito MD [address] [place] [address] [phone] Surgery 05/21/23 Karen Steel LICSW Grocery Store Associate 05/21/23 Sánchez Kowalski APRN VASCULAR SONOGRAPHER 9 [place] [address] Nurse Practitioner Nephrology 05/21/[address] [place] [address] Registered Dietitian Dietitian, Registered 05/21/23 Marlen Esposito MD [address] [place] [address] Assigned Surgical Provider 06/21/23 documented as of this encounter
--- OUTSIDE RECORDS SUMMARY | 2023-09-26 11:51 | XMS_ITS | Encounter Summary ---
Author Name Unknown Organization [facility] Address [address] [facility] [place] [address] Care Team Providers Care Woodwork Teacher Name Role Phone Sánchez Kowalski APRN FIELD CROP FARMING SUPERVISOR Unavailable Marlen Esposito MD Unavailable [phone] Unavailable Unavail able Karen Steel LABORER [employer] Unavailable [phone] Marlen Esposito MD Unavailable Karen Steel Unavailable Sánchez Kowalski APRN FIELD CROP FARMING SUPERVISOR Unavailable [phone] Unavailable Unavail able System, Provider Not In Primary Care Provider Un available Ryan Cole MD Primary Care Provider [phone] Marlen Esposito MD Unavailable [phone] Encounter Details Date Type Department Care Team (Latest Contact Info) Description 04/07/2018 Medical Correspondence [facility] [address] [place] [address] Scan, Non-Provider LETTER FROM [facility] Social History Tobacco Use Types Packs/Day Years Used Date Smoking Tobacco: Never Assessed Adolescent Education Answer Date Record ed Getting [...] on filedocumented in this encounter Care Teams Woodwork Teacher Relationship Specialty Start Date End Date System, Provider Not In PCP - General Clinic 05/21/23 05/21/23 Ryan Cole MD [address] [place] [address] PCP - General 06/02/23 Sánchez Kowalski APRN FIELD CROP FARMING SUPERVISOR [address] [place] [address] [phone] Nurse Practitioner Nephrology 04/11/23 Marlen Esposito MD [address] [place] [address] [id number] MD Surgery 04/11/[address] [address] Registered Dietitian Dietitian, Registered 04/11/23 Karen Steel, [facility] Manager Pest 04/11/23 Marlen Esposito MD [address] [place] [address] [id number] Surgery 05/21/23 Karen Steel, [employer] Manager Pest 05/21/23 Sánchez Kowalski APRN FIELD CROP FARMING SUPERVISOR [address] [place] [address] [phone] Nurse Practitioner Nephrology 05/21/[address] [address] Registered Dietitian Dietitian, Registered 05/21/23 Marlen Esposito MD [address] [place], [place] 9[address] Assigned Surgical Provider 06/21/23 documented as of this encounter
--- OUTSIDE RECORDS SUMMARY | 2023-09-26 11:51 | XMS_ITS | Encounter Summary ---
Author Name Unknown Organization [facility] Address [address] [facility] [place] [address] Care Team Providers Care Piano Teacher Name Role Phone Sánchez Kowalski APRN CUSTOM FEED CORN OPERATOR Unavailable Marlen Esposito MD Unavailable Patricia Willoughby RD Unavailable Unavail able Karen Steel Unavailable [phone] Marlen Esposito MD Unavailable [phone] Karen Steel Unavailable Sánchez Kowalski APRN CUSTOM FEED CORN OPERATOR Unavailable [phone] Unavailable Unavail able Ryan Cole MD Primary Care Provider [phone] Marlen Esposito MD Unavailable [phone] Encounter Details Date Type Department Care Team (Latest Contact Info) Description 06/24/2023 Medical Correspondence [facility] [address] [place] [address] Outside, Provider TO WHOM IT MAY CONCERN LETTER Social History Tobacco Use Types Packs/Day Years Used Date Smoking Tobacco: Never Smokeless Tobacco: Never Alcohol Use Standard Drinks/Week Comments Not Currently 0 (1 standard drink = 0.6 oz pur e alcohol) no longer drinks alcohol Adolescent Education Answer Date Record ed Getting School Help Needed Not on file 09/26 /2023 Sex and Gender Information Value Date Recorded Sex Assigned at Male 03/27/2023 11:48 AM CDT Gender Identity Male 03/27/2023 11:48 AM CDT Sexual Orientation Not on file documented as of this encounter Plan of Treatment Not on file documented as of this encounter Visit Diagnoses Not on filedocumented in this encounter Care Teams Piano Teacher Relationship Specialty Start Date End Date Ryan Cole MD [address] [place] [address] PCP - General 06/02/23 Sánchez Kowalski APRN CUSTOM FEED CORN OPERATOR [address] [place] [address] [id number] Nurse Practitioner Nephrology 04/11/23 Marlen Esposito MD [address] [place] [address] [id number] MD Surgery 04/11/[address] [address] Registered Dietitian Dietitian, Registered 04/11/23 Karen Steel, [facility] Crosstie Inspector 04/11/23 Marlen Esposito MD [address] [place] [address] [phone] Surgery 05/21/23 aKren Steel, RN INFORMATICS Crosstie Inspector 05/21/23 Sánchez Kowalski APRN CUSTOM FEED CORN OPERATOR [address] [place] [address] 107115 Nurse Practitioner Nephrology 05/21/[address] [address] Registered Dietitian Dietitian, Registered 05/21/23 Marlen Esposito MD [address] [place], [place] 495[address] Assigned Surgical Provider 06/21/23 documented as of this encounter
--- OUTSIDE RECORDS SUMMARY | 2023-09-26 11:51 | XMS_ITS | Encounter Summary ---
Author Name Unknown Organization [facility] Address [address] [place] [address]. [place] [address] Care Team Providers Care President [employer] Name Role Phone Sánchez Kowalski APRN ERADICATOR Unavailable Marlen Esposito MD Unavailable [phone] Unavailable Unavail able Karen Steel Unavailable [phone] Marlen Esposito MD Unavailable [phone] Karen Steel Unavailable [phone] Sánchez Kowalski APRN ERADICATOR Unavailable [phone] Unavailable Unavail able Ryan Cole MD Primary Care Provider Marlen Esposito MD Unavailable [phone] Encounter Details Date Type Department Care Team (Late st Contact Info) Description 07/10/2023 [facility] Medical Advice [facility] Trans[facility] [address] [place] [address] Linnea Graff RN Social History [...] on filedocumented in this encounter Care Teams President [employer] Company Relationship Specialty Start Date End Date Ryan Cole MD [address] [place] [address] PCP - General 06/02/23 Sánchez Kowalski APRN ERADICATOR [address] [place] [address] 189605 Nurse Practitioner Nephrology 04/11/23 Marlen Esposito MD [address] [place] [address] [phone] MD Surgery 04/11/[address] [address] Registered Dietitian Dietitian, Registered 04/11/23 Karen Steel, [facility] Faculty Research Physician 04/11/23 Marlen Esposito MD [address] [place] [address] [phone] Surgery 05/21/23 Karen Steel, [facility] Faculty Research Physician 05/21/23 Sánchez Kowalski APRN ERADICATOR [address] [place] [address] 865015 Nurse Practitioner Nephrology 05/21/[address] [address] Registered Dietitian Dietitian, Registered 05/21/23 Marlen Esposito MD [address] [place], [place] [address] Assigned Surgical Provider 06/21/23 documented as of this encounter
--- OUTSIDE RECORDS SUMMARY | 2023-09-26 11:51 | XMS_ITS | Encounter Summary ---
Author Name Unknown Organization [facility] Address [address] [place] [address]. [place] [address] Care Team Providers Care Soil Conservationist Name Role Phone Sánchez Kowalski APRN BRAZING FURNACE OPERATOR Unavailable Marlen Esposito MD Unavailable [phone] Unavailable Unavail able Karen Steel Unavailable [phone] Marlen Esposito MD Unavailable [phone] Karen Steel Unavailable Sánchez Kowalski APRN BRAZING FURNACE OPERATOR Unavailable [phone] Unavailable Unavail able Ryan Cole MD Primary Care Provider Marlen Esposito MD Unavailable [phone] Encounter Details Date Type Department Care Team (Late st Contact Info) Description 06/05/2023 Orders Only [facility] [address] [place] [address] Outside, Provider Social History Tobacco Use Types [...] Date/Time Associated Diagnosis Comments HLA RESULT REPORT 06/05/2023 2:18 PM YARD GOODS SALESPERSON HLA RESULT REPORT 06/05/2023 2:18 PM [employer]ARD GOODS SALESPERSON documented in this encounter Results * HLA RESULT REPORT (06/05/2023 2:18 PM YARD GOODS SALESPERSON) Provider Outside LAB - IMMUNOLOGY ORD ERABLES * HLA RESULT REPORT (06/05/2023 2:18 PM YARD GOODS SALESPERSON) Provider Outside LAB - IMMUNOLOGY ORD ERABLES documented in this encounter Visit Diagnoses Not on filedocumented in this encounter Care Teams Soil Conservationist Relationship Specialty Start Date End Date Ryan Cole MD [address] [place] [address] PCP - General 06/02/23 Sánchez Kowalski APRN BRAZING FURNACE OPERATOR [address] [place] [address] [phone] Nurse Practitioner Nephrology 04/11/23 Marlen Esposito MD [address] [place] [address] Surgery 04/11/[address] [place] [address] Registered Dietitian Dietitian, Registered 04/11/23 Karen Steel LICSW Hydraulic Rubbish Compactor Mechanic 04/11/23 Marlen Esposito MD [address] [place] [address] [id number] Surgery 05/21/23 Karen Steel LICSW Hydraulic Rubbish Compactor Mechanic 05/21/23 Sánchez Kowalski APRN BRAZING FURNACE OPERATOR [address] [place] [address] Nurse Practitioner Nephrology 05/21/[address] [place] [address] Registered Dietitian Dietitian, Registered 05/21/23 Marlen Esposito MD [address] [place] [address] Assigned Surgical Provider 06/21/23 documented as of this encounter
--- OUTSIDE RECORDS SUMMARY | 2023-09-26 11:51 | XMS_ITS | Encounter Summary ---
Author Name Unknown Organization [place] [facility] Address [address] [place] [address]. [place] [address] Care Team Providers Care Technical Project Lead Name Role Phone Sánchez Kowalski APRN SOLAR FABRICATION TECHNICIAN Unavailable Marlen Esposito MD Unavailable Patricia Willoughby RD Unavailable Unavail able Karen Steel Unavailable Marlen Esposito MD Unavailable [phone] Karen Steel Unavailable [phone] Sánchez Kowalski APRN SOLAR FABRICATION TECHNICIAN Unavailable Patricia Willoughby RD Unavailable Unavail able Ryan Cole MD Primary Care Provider [phone] Reason for Visit * Reason Onset Date Comments Transplant Recipient Evaluation 06/19/2023 Pre Kidney Neurology Nurse Call.Note.Letter Encounter Details Date Type Department Care Team (Late st Contact Info) Description 06/19/[address] [facility] [address] [place] [address] Linnea Graff RN Transplant Recipient Evaluation (Pre Kidney Neurology Nurse Call.Note.Letter) Social History Tobacco Use Types Packs/Day Years [...] Telephone Encounter - Linnea Graff RN - 06/19/2023 12:13 PM CST Contacted patient to review outcome of selection committee meeting (See selection committee encounter). Explained to patient that he needs to complete all components of the evaluation to be eligible for active status on the waiting list or to proceed with a live donor kidney transplant. Reviewed next steps based on outcomes: pt to work with [facility] Transplant Team to obtain a recommendation to proceed with kidney transplant at our Center. Pt has the option of transferring post liver transplant care to our Center as well. Patient will not be listed (patient is on dialysis and evaluation is not complete), patient will receive: - An Evaluation Summary Letter indicating what is needed to complete evaluation- discussed with patient if they would like to have testing done with [facility] or locally Confirmed with patient that on successful completion of outstanding components, patient is eligiblefor active status and they will receive a follow-up call. Confirmed that patient has contact information for additional questions or concerns. Pt expressed excellent understanding of all and was in good agreement with the plan. Generated Transplant Evaluation Summary Letter today in [facility] - electronically sent to pt/ providers. MOLDER documented in this encounter Plan of Treatment Not on file documented as of this encounter Visit Diagnoses Not on filedocumented in this encounter Care Teams Technical Project Lead Relationship Specialty Start Date End Date Ryan Cole MD [address] [place] [address] PCP - General 06/02/23 Sánchez Kowalski APRN SOLAR FABRICATION TECHNICIAN [address] [place] [address] Nurse Practitioner Nephrology 04/11/23 Marlen Esposito MD [address] [place] [address] Surgery 04/11/[address] [address] Registered Dietitian Dietitian, Registered 04/11/23 Karen Steel, [facility] Computing Machine Operator 04/11/23 Marlen Esposito MD [address] [place] [address] Surgery 05/21/23 Karen Steel, [facility] Computing Machine Operator 05/21/23 Sánchez Kowalski APRN SOLAR FABRICATION TECHNICIAN [address] [place] [address] 465385 Nurse Practitioner Nephrology 05/21/[address] [address] Registered Dietitian Dietitian, Registered 05/21/23 documented as of this encounter
--- OUTSIDE RECORDS SUMMARY | 2023-09-26 11:52 | XMS_ITS | Clinical Summary ---
Author Name Unknown Organization [facility] Address [place], [place] [address] Care Team Providers Care Almond Blancher Name Role Phone Ryan Cole MD Primary Care Provider [phone] Allergies Active Allergy Reactions Criticality Noted Date Comments Aspirin Other - Describe In Comment Field 12/27/2011 Liver transplant Cefixime Diarrhea High 01/20/2017 C Diff Ciprofloxacin Intolerance-Can't Take,Other - Describe In Comment Field Medium 07/14/2013 Liver transplant Tendon pain Citalopram Intolerance-Can't Take,Other - Describe In Comment Field High 07/14/2013 Liver transplant michell Erythromycin 09/09/2006 interacts with meds Erythromycin Base Other - Describe In Comment Field Medium 05/22/2015 Due to medications, interacts with transplant medications Ibuprofen Other - Describe In Comment Field 11/04/2016 PT SHOULD NOT HAVE THIS MED R/T LIVER TRANSPLANT Quetiapine Edema,Other - Describe In Comment Field High 05/22/2015 Muscle pain and swelling Quetiapine Fumarate Intolerance-Can't Take 07/14/2013 Liver transplant Olanzapine Muscle Weakness Low 01/20/2017 Medications Medication Sig Dispensed Refills Start Date End Date Status MULTIPLE VITAMIN TAB take 1 tablet by oral route once daily with food 0 Active Blood Pressure Monitor 1 Device 0 07/14/2013 Active aspirin enteric coated 81 mg tablet Take 1 tablet by mouth once daily with a meal. 0 07/14/2013 Active Blood Pressure Test Kit-Medium kit As directed. 1 Kit 0 07/14/2013 Active mycophenolate (CELLCEPT) 500 mg tablet Take 1 tablet by mouth every 12 hours. 0 04/18/2016 Active miscellaneous medical supply (BLOOD PRESSURE CUFF) miscIndications:Ess ential hypertension As directed. 1 Each 01/20/2017 Active predniSONE (DELTASONE) 5 mg tablet Take 1 tablet by mouth once daily. 3 12/12/2016 Active lamoTRIgine (LAMICTAL) 200 mg tablet Take 1 tablet by mouth once daily. 1 01/14/2017 Active medication order composer Calcium-magnesium, take 3 capsule by mouth twice daily. 0 01/23/2017 Active tacrolimus (PROGRAF) 0.5 mg capsule Take 2 capsules by mouth every 12 hours. 0 01/23/2017 Active atorvastatin (LIPITOR) 10 mg tablet Take 10 mg by mouth once daily. 1 09/23/2018 Active doxazosin (Cardura) 8 mg tablet Take 0.5 Tablets (4 mg) by mouth at bedtime. 90 tablet. 3 12/18/2020 Active ondansetron (ZOFRAN) 4 mg tablet Take 4 mg by mouth every 8 hours if needed. 11/29/2020 Active torsemide (DEMADEX) 10 mg tablet Take 3 Tablets (30 mg) by mouth once daily. 3 12/18/2020 Active coenzyme q10 100 mg cap Daily Active benzonatate (Tessalon Perles) 100 mg capsuleIndications: Chronic cough Take 1 Capsule (100 mg) by mouth 3 times daily if needed for Cough. 30 Capsule 1 05/10/2021 Active ipratropium (ATROVENT NASAL) 21 mcg (0.03 %) nasal spray 06/03/2021 Active albuterol HFA (PRO-AIR; VENTOLIN; PROVENTIL) 90 mcg/actuation inhaler Inhale 2 Puffs by mouth every 6 hours if needed. 06/21/2021 Active Renate-Celestine Rx tablet TAKE 1 TABLET BY MOUTH DAILY WITH DINNER 09/08/2021 Active traZODone (DESYREL) 100 mg tablet Take 100 mg by mouth once daily if needed. 08/27/2021 Active trimethoprim-sulfam ethoxazole, 80-400 mg, (BACTRIM SS; SEPTRA SS) tab TAKE 1 TABLET BY MOUTH AT BEDTIME AFTER DIALYSIS 12/10/2021 Active NIFEdipine (PROCARDIA XL) 30 mg Extended-Release tablet Take 30 mg by mouth once daily before a meal. 10/06/2021 Active Lidocaine-Prilocain e (EMLA) 2.5-2.5 % cream Apply topically to affected area(s). 09/19/2021 Active voriconazole (Vfend) 200 mg tablet Take 1 Tablet (200 mg) by mouth two times daily before meals. 0 02/18/2022 Active azelastine 137 mcg/actuation (ASTELIN) nasal spray Inhale 1 mg into affected nostril(s). Active Trelegy Ellipta 200-62.5-25 mcg inhaler Inhale 1 Puff by mouth once daily. 02/13/2022 Active valGANciclovir (VALCYTE) 450 mg tablet TAKE 1 TABLET BY MOUTH EVERY OTHER DAY. TAKE AFTER DIALYSIS ON DIALYSIS DAYS 04/22/2022 Active ketoconazole 2% shampoo (NIZORAL) 2 % shampoo 06/24/2022 Active predniSONE (DELTASONE) 10 mg tabletIndications:C hronic cough,Chronic sinusitis, unspecified location 40 mg daily for 3 days, 30 mg daily for 3 days, then 20 mg daily for 3 days, then 10 mg daily for 3 days, then back to usual dose of 5 mg daily 30 Tablet 08/20/2022 Active montelukast (SINGULAIR) 10 mg tabletIndications:C hronic sinusitis, unspecified location TAKE 1 TABLET(10 MG) BY MOUTH AT BEDTIME 90 Tablet 1 05/29/2023 Active loratadine (CLARITIN) 10 mg tabletIndications:C hronic sinusitis, unspecified location TAKE 1 TABLET(10 MG) BY MOUTH EVERY DAY 90 Tablet 2 05/29/2023 Active amoxicillin (AMOXIL) 500 mg capsuleIndications: History of joint replacement, unspecified joint TAKE 4 CAPSULES BY MOUTH BEFORE DENTAL APPOINTMENT 4 Capsule 1 07/02/2023 Active levothyroxine (SYNTHROID) 50 mcg tabletIndications:H ypothyroidism (acquired) TAKE 1 TABLET(50 MCG) BY MOUTH EVERY DAY 90 Tablet 08/08/2023 Active Active Problems Problem Noted Date Diagnosed Date Acute pericardial effusion 03/24/2023 Optic neuritis 08/30/2022 Multiple pulmonary nodules 08/23/2022 ESRD (end stage renal disease) on dialysis 01/23 Anemia of unknown etiology 05/24/2021 Hyponatremia 05/24/2021 Hypothyroidism (acquired) 05/24/2021 Acute bronchitis due to dilia re acute respiratory syndrome coronavirus 2 (SARS-CoV-2) 11/12/2020 Chronic sinusitis 01/31/2020 CKD (chronic kidney disease) stage 4, GFR 15-29 ml/min 06/03/2016 Other specified organ or tis virgil replaced by transplant(V42.89) 06/19/2012 Mixed hyperlipidemia 07/28/2007 Unspecified essential hypertension 07/10/2007 Anxiety state, unspecified 09/09/2006 Liver transplant Overview: & 2012 On chronic immune suppression 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 This will not affect patient care or billing. This comment can be deleted. Other abnormal glucose 07/28/200712/26 Overview: prediabetes, 2007 Unspecified disorder of liver 09/09/2006 11/27/2012 Encounters Date Type Department Care Team Description 09/19/2023 Orders Only [facility] Scanner 1 scan: (1-Ord) [facility], 09/19/2023 09/14/2023 Orders Only [facility] Scanner 1 scan: (1-Ord) NURSERY, CT ABD PELVIS W/O CON, 09/14/2023 08/15/2023 10:30 AM ELL TEACHER Orders Only [facility] [address] [place] [address] Lab, [facility] 08/15/2023 Travel 08/11/2023 Refill [facility] [address] [place] [address] Ryan Cole MD Refill Request (Levothyroxine) 08/08/2023 Refill [facility] [address] [place] [address] Ryan Cole MD Refill Request (Levothyroxine) 06/30/2023 Refill [facility] [address] [place] [address] Ryan Cole MD Refill Request (Amoxicillin) from Last 3 Months Immunizations Name Administration Dates Next Due AMB INFLUENZA, IIV4 (AGE=>6M OS) MDV (Flu Clinic Only) 04/22/2018 COVID-19 vaccine (Moderna 100mcg/0.5mL) PF, MDV 01/21/2022,09/03/2020,08/06/2020 Hepatitis A (Adult) 12/25/2012,12/07/1998,1997 Hepatitis A, Unspecified 12/07/1998,06/08/1998 Hepatitis B (Adult) 12/07/1998, 9,06/22/1998,1997 Hepatitis B, Unspecified 12/07/1998,06/23,06/22/1998,1997 Influenza A (H1N1), Inactivated 05/16/2009 Influenza A (H1N1), Inactiva onel (Age >=3 Years) 05/16/2009 Influenza Virus, Unspecified 06/23/2015, 04/06/2015,04/06/2014,2012 Influenza, High-dose Quadriv alent Inactivated 03/05/2021,02/11/2020 Influenza, IIV3 (Age 6-35 mos) 03/28/2016,2014,03/26/2011 Influenza, IIV3 (Age >=3 years) 03/16/20 15,02/14/2014,03/05/2013,2011,03/26/2011,03/28/2010,04/05/2004 Influenza, IIV4 03/15/2019,04/22/2018 Influenza, IIV4 (=>6mos) MDV 03/15/2019 Influenza, Inactivated AIIV4 (Age 65+ Years) Preserv Free 04/08/2022 Pneumococcal Poly,23-Valent (Pneumovax) 04/30/2005,08/07/1995 Pneumococcal conj 13-Valent (Prevnar 13) 12/25/2012,06/23/2009 Pneumococcal, Unspecified 06/23/2014 TD, UNSPECIFIED 05/11/2003 Td (Age >=7 Years) 05/11/2003 Tdap 02/19/2012 Tuberculin (PPD) 01/15/2022 Tuberculin Skin Test, Unspecified 07/09/2021,03/2022,05/29/2021 Zoster (Shingrix-RZV, recombinant) 01/06/2018,,10/03/2017 Family History Medical History Relation Name Comments Asthma Father Relation Name Status Comments Father Social History Tobacco Use Types Packs/Day Years Used Date Smoking Tobacco: Never Smokeless Tobacco: Never Tobacco Cessation:Counseling Given: Yes Alcohol Use Standard Drinks/Week Comments No 0 (1 standard drink = 0.6 oz pur e alcohol) PHQ-2 Answer Date Recorded PHQ-2 TOTAL SCORE 1 12/13/2021 Social Connections Answer Date Recorded Frequency of Communication with Friends and Fami ly Not on file 12/16/2022 Financial Resource Strain Answer Date R ecorded Difficulty of Paying Living Expenses 3 12/13/2021 Difficulty of Paying Living Expenses Not on file 12/13/2021 Food Insecurity Answer Date Recorded Worried About Running Out of Food in the Last Ye ar 1 12/13/2021 Transportation Needs Answer Date Record ed Lack of Transportation (Medical) 1 12/13/2021 Housing Stability Answer Date Recorded Unable to Pay for Housing in the Last Year 1 12/13/2021 Sex and Gender Information Value Date Recorded Sex Assigned at Not on file Gender Identity Not on file Sexual Orientation Not on file Obstetrics History Last Filed Vital Signs Vital Sign Reading Time Taken Comments Blood Pressure 135/66 04/15/2023 11:57 AM CDT Pulse 88 04/15/2023 11:57 AM CDT Temperature 36.8 ??C (98.2 ??F) 12/13/2021 1:07 PM CD T Respiratory Rate 24 05/24/2021 11:02 AM ELL TEACHER Oxygen Saturation 100% 04/15/2023 11:57 AM CDT Inhaled Oxygen Concentration - - Weight 78.1 kg (172 lb 1.6 oz) 04/15/2023 11:57 AM CDT Height 175.3 cm (5' 9.02) 05/24/2021 11:[address] Body Mass Index 25.4 05/24/2021 11:02 AM ELL TEACHER Plan of Treatment Health Maintenance Due Date Last Done Comments Medicare Wellness for age 65+ 09/14/2019 Pneumococcal series for age 65+ (4 of 4 - PPSV23 or PCV20) 09/14/2019 06/23/2014, 12/25/2012, 06/23/2009, Additional history exists Tetanus booster 02/18/2022 02/19/2012, 04/23, 05/11/2003 BMI (ht and wt on same day) for age 18+ 05/24/2022 05/24/2021, 04/26/2021, 03/30/2021, Additional history exists Depression screening for age 12+ 12/13/2022 12/13/2021, 12/18/2020, 12/15/2020, Additional history exists COVID-19 vaccine series ( season) 2023 01/21/2022, 07/31/2021, 02/09/2021, Additional history exists Influenza for age 65+ 02/22/2024 04/08/2022 , 03/05/2021, 02/11/2020, Additional history exists Lipids for age 45-75 04/26/2026 04/26/2021, 05/02/2014, 05/05/2013, Additional history exists Colonoscopy through age 75 07/10/202607/10 (Verified in Care Everywhere or Patient Record) Tdap Completed 02/19/2012 Zoster (shingles) series for age 50+ Completed 01/06/2018, 10/03/2017, 10/03/2017 Hepatitis C screening for ag e 18-79 Completed 04/26/2021 Fecal testing non-DNA (FIT,FOBT,iFOBT) for age 45-75 Discontinued 05/01/2021, 04/03/2020, 11/19/2018 Procedures Procedure Name Priority Date/Time Associated Diagnosis Comments SCAN-CT INTERPRETATION 4 12:00 AM CDT SCAN-CT INTERPRETATION 4 12:00 AM CDT CLOSTRIDIOIDES DIFFICILE TOXIN PCR Routine 08/15/2023 10:30 AM ELL TEACHER Acute diarrhea OCCULT BLOOD IFOBT STOOL Routine 05/01/2021 11:40 AM ELL TEACHER Screening for colorectal cancer ANTI HCV Add On 04/26/2021 10:01 AM CDT Need for hepatitis C screening test LIPID PANEL W REFLEX MEASURED LDL Add On 04/26/2021 10:01 AM CDT Screening for lipid disorders from Last 3 Months or Most Recently Relevant to Health Maintenance Results * SCAN-CT INTERPRETATION (09/19/2023 12:00 AM CDT) Only the most recent of2 resultswithin the time period is included. Anatomical Region Laterality Modality Other Scanner OTHER * CLOSTRIDIOIDES DIFFICILE TOXIN PCR (08/15/2023 10:30 AM ELL TEACHER) CLOSTRIDIUM DIFFICILE PCR Negative 08/15/2023 11:55 PM ELL TEACHER [facility] PRESUMPTIVE NAP1 STRAIN Negative 08/15/2023 11:55 PM ELL TEACHER [facility] Stool STOOL SPECIMEN / Unknown Non-Blood / Unknown 08/15/2023 10:30 AM ELL TEACHER 08/15/2023 12:32 PM ELL TEACHER Narrative [facility] - 08/15/2023 11:55 PM ELL TEACHER The NAP1 (027 or BI) strain is a hypervirulent strain. Detection may be useful for epidemiological purposes. Ryan Cole MD MICROBIOLOGY Performing Organization Address City/[facility]/ZIP Co de Phone Number [facility] [address] [place] [address], [place] * (ABNORMAL) OCCULT BLOOD IFOBT STOOL (05/01/2021 11:40 AM ELL TEACHER) STOOL BLOOD ,IFOBT Positive(A ) Negative 05/11/2021 2:47 PM ELL TEACHER [facility] Stool STOOL SPECIMEN / Unknown Non-Blood / Unknown 05/01/2021 11:40 AM ELL TEACHER 05/09/2021 11:40 AM ELL TEACHER Ryan Cole MD LABORATORY Performing Organization Address City/[facility]/ZIP Co de Phone Number [facility] [address] [place] [address], [place] [phone] * (ABNORMAL) LIPID PANEL W REFLEX MEASURED LDL [[id number]] (04/26/2021 10:01 AM CDT) CHOLESTEROL,TOTAL 120 100 - 199 mg/dL 04/26/2021 6:06 PM CDT [facility] TRIGLYCERIDES 170(H) <150 mg/dL 04/26/2021 6:06 PM CDT [facility] HDL CHOLESTEROL 32(L) >40 mg/dL 6:06 PM CDT [facility] NON-HDL CHOLESTEROL 88 <145 mg/dl 04/26/2021 6:06 PM CDT [facility] CHOL/HDL RATIO 3.75 <4.50 04/26/2021 6:06 PM CDT [facility] LDL CHOLESTEROL 54 <=130 mg/dL 04/26/2021 6:06 PM CDT [facility] VLDL CHOLESTEROL 34(H) <=30 mg/dL 04/26/2021 6:06 PM CDT [facility] PROVIDER ORDERED STATUS RANDOM 04/26/2021 6:06 PM CDT [facility] Blood BLOOD SPECIMEN / Unknown Venipuncture / Unknown 04/26/2021 10:01 AM CDT 04/26/2021 10:01 AM CDT Ryan Cole MD CHEMISTRY [facility] [address] [place] [address], * ANTI HCV (04/26/2021 10:01 AM CDT) HEPATITIS C ANTIBODY Non-React davin Non-React davin 04/26/2021 6:19 PM CDT [facility] Comment:Antibodies to HCV no t detected; does not exclude the possibility of exposure to HCV. Blood BLOOD SPECIMEN / Unknown Venipuncture / Unknown 04/26/2021 10:01 AM CDT 04/26/2021 10:01 AM CDT Ryan Cole MD SEND OUTS [facility] [address] [place] [address], from Last 3 Months or Most Recently Relevant to Health Maintenance Advance Directives * Full Code (Latest Code Status on File) Date Activated Date Inactivated Comments 04/30/2021 5:43 AM 04/30/2021 10:06 AM Question Answer Comments Code Status Discussion: Reviewed Preferences Care Teams Almond Blancher Relationship Specialty Start Date End Date Ryan Cole MD [address] [place] [address] PCP - General Family Practice 07/11/14
== END 2023-09-19 01:57 | disposition home or self-care (01) ==
PROVIDERS: Emergency Provider Family Medicine; PCP Surgery
DX: K68.3 Retroperitoneal hematoma (principal); Z94.4 Liver transplant status
CPT/HCPCS: 36415; 74176; 80048; 80076; 83735; 85025; 99284

== ENCOUNTER 2023-09-27 06:49 | Emergency (ER) | payer MEDICARE, BC, SELFPAY ==
[2023-09-27 06:57] VITALS: BP 124/60; PULSE 99; RESP 20; TEMP 36.7; O2SAT 99; BMI 25.1
--- NOTE | 2023-09-27 07:04 | ED.ABDPAIN ---
HPI - Abdominal Pain General Time Seen by Provider: 07:04 Date Seen: 09/27/23 Chief Complaint: Abdominal Pain Stated Complaint: Constipation Time Seen by Provider: 09/27/23 07:04 Source: patient, RN notes reviewed and old records reviewed Mode of arrival: ambulatory Limitations: no limitations History of Present Illness HPI narrative: 68-year-old male who comes in with concern for abdominal distension. Patient was seen September 13 and was found to have a retroperitoneal hematoma, was transferred to [place] and underwent embolization. Subsequently was seen on September 18 due to sensation of abdominal bloating CT scan performed at that visit redemonstrated the retroperitoneal hematoma without significant increase in volume, moderate volume stool in the ascending and transverse colon without significant distal stool burden. Patient returns today with continued sensation of abdominal bloating. He has been passing stools and has been urinating as much as usual, he is on dialysis. He denies chest pain, says it feels like it is hard to take a good breath in because of his abdominal distension. Related Data Home Medications Medication Instructions Recorded Confirmed albuterol sulfate 90 mcg/actuation 2 puff inhalation Q6H PRN 03/29/22 09/27/23 aerosol inhaler aspirin 81 mg tablet,delayed 81 mg PO QDAY 03/29/22 09/27/23 release (Adult Low Dose Aspirin) atorvastatin 10 mg tablet 10 mg PO QDAY 03/29/22 09/27/23 azelastine 137 mcg (0.1 %) nasal 1 spray intranasal BID 03/29/22 09/27/23 spray aerosol budesonide 0.25 mg/2 mL suspension 0.5 mg inhalation QDAY 03/29/22 09/27/23 for nebulization (Pulmicort) coenzyme Q10 100 mg capsule 100 mg PO QDAY 03/29/22 09/27/23 fluticasone fur. 200 mcg-umeclid 1 inh inhalation QDAY 03/29/22 09/27/23 62.5 mcg-vilant 25 mcg inhalat.powder (Trelegy Ellipta) ipratropium bromide 21 mcg (0.03 2 spray intranasal BID 03/29/22 09/27/23 %) nasal spray lamotrigine 200 mg tablet 200 mg PO BID 03/29/22 09/27/23 (Lamictal) levothyroxine 25 mcg capsule 25 mcg PO QDAY 03/29/22 09/27/23 loratadine 10 mg tablet 10 mg PO QDAY 03/29/22 09/27/23 montelukast 10 mg tablet 10 mg PO QDAY 03/29/22 09/27/23 (Singulair) mycophenolate mofetil 500 mg 500 mg PO Q12H 03/29/22 09/27/23 tablet (CellCept) nifedipine 30 mg tablet,extended 30 mg PO QDAY 03/29/22 09/27/23 release 24 hr (Procardia XL) prednisone 5 mg tablet 5 mg PO QDAY 03/29/22 09/27/23 tacrolimus 0.5 mg capsule, 1.5 mg PO Q12H 03/29/22 09/27/23 immediate-release (Prograf) torsemide 10 mg tablet 10 mg PO QAM 03/29/22 09/27/23 trazodone 100 mg tablet 100 mg PO QDAY 03/29/22 09/27/23 voriconazole 200 mg tablet (Vfend) 200 mg PO Q12H 03/29/22 09/27/23 Previous Rx's Medication Instructions Recorded gabapentin 100 mg capsule See Rx Instructions .Route 02/14/23 .COMPLEX #20 caps Allergies Allergy/AdvReac Type Severity Reaction Status Date / Time cefixime Allergy Intermediate Diarrhea Verified 09/27/23 07:00 quetiapine Allergy Intermediate Edema Verified 09/27/23 07:00 ciprofloxacin Allergy Unknown Verified 09/27/23 07:00 citalopram Allergy Unknown Verified 09/27/23 07:00 [facility] Social History Smoking Status: Former smoker Second hand tobacco smoke exposure: No How often do you have a drink containing alcohol: never AUDIT-C Alcohol total score: 0 Non-prescribed substance use: denies use Exam Narrative: Exam Narrative: General: Well-developed and well-nourished, no acute distress Head: Atraumatic and normocephalic Eyes: Pupils are equal reactive, extraocular motions intact, conjunctiva clear ENT: External nose and ears are normal, posterior pharynx without erythema or exudate Neck: No midline cervical tenderness, full spontaneous range of motion the neck, trachea midline, no adenopathy Heart: Regular rate and rhythm no murmurs or thrills Lungs: Clear to auscultation bilaterally without wheezes or crackles Abdomen: Mild distention with hyperactive bowel sound Musculoskeletal: No tenderness, deformity, or edema Neurologic: Awake, alert, and oriented x3, no gross focal neurologic deficits, cranial nerves intact as tested Psych: Mood and affect are appropriate Skin: No rashes Const: Vital Signs, click to edit/add: Vital Signs - 24 hr 09/27/23 06:57 Temperature 98.1 F Pulse Rate [Right Pulse Oximeter] 99 Respiratory Rate 20 Blood Pressure [Ri ght Upper Arm] 124/60 Pulse Oximetry 99 Oxygen Delivery Me thod Room Air Course Course ED Course: Patient seen and examined, reviewed prior emergency department visit from September 13 when patient was seen with retroperitoneal hematoma. Patient presents with abdominal bloating, had been seen for similar about a week ago with minimal improvement. He is passing stools, able to eat and drink, no nausea vomiting. On exam, hyperactive bowel sounds, no abdominal tenderness. Suspect that patient is still having distension due to blood in the abdomen, discussed that this may take several weeks to fully resolve. I did review patient's CT scan from prior and there is a small pleural effusion, patient does not have increased shortness of breath and has been bilateral breath sounds equal in the bases. We discussed further testing today including labs or repeat CT scan but patient reports he does not feeling worse than last week does not getting much better and so will defer further testing for now pain Vital Signs Vital signs: Initial Vital Signs Temperature 98.1 F 09/27/23 06:57 Temperature Source Temporal Artery Scan 09/27/23 06:57 Pulse Rate 99 09/27/23 06:57 Respiratory Rate 20 09/27/23 06:57 Blood Pressure 124/60 09/27/23 06:57 Blood Pressure Mean 81 09/27/23 06:57 Blood Pressure Position Sitting 09/27/23 06:57 Pulse Oximetry 99 09/27/23 06:57 Oxygen Delivery Method Room Air 09/27/23 06:57 Vital Signs Temperature 98.1 F 09/27/23 06:57 Pulse Rate 99 09/27/23 06:57 Respiratory Rate 20 09/27/23 06:57 Blood Pressure 124/60 09/27/23 06:57 Pulse Oximetry 99 09/27/23 06:57 Oxygen Delivery Method Room Air 09/27/23 06:57 Temperature 98.1 F 09/27/23 06:57 Pulse Rate 99 09/27/23 06:57 Respiratory Rate 20 09/27/23 06:57 Blood Pressure 124/60 09/27/23 06:57 Pulse Oximetry 99 09/27/23 06:57 Oxygen Delivery Method Room Air 09/27/23 06:57 Discharge Plan Discharge Clinical Impression: Abdominal bloating, Retroperitoneal bleed Patient Disposition: Home, Self-Care Condition: Stable Additional Instructions: Continue your current medications. Use your incentive spirometer to help open lungs. Follow-up with your primary care doctor this week Activity Level: No Restrictions and Activity as Tolerated Discharge Diet: Regular Prescriptions: No Action albuterol sulfate 90 mcg/actuation HFA aerosol inhaler 2 puff inhalation Q6H PRN aspirin [Adult Low Dose Aspirin] 81 mg tablet,delayed release (DR/EC) 81 mg PO QDAY atorvastatin 10 mg tablet 10 mg PO QDAY azelastine 137 mcg (0.1 %) aerosol,spray 1 spray intranasal BID Rx Instructions: administer into each nostril budesonide [Pulmicort] 0.25 mg/2 mL suspension for nebulization 0.5 mg inhalation QDAY coenzyme Q10 100 mg capsule 100 mg PO QDAY ipratropium bromide 21 mcg (0.03 %) spray,non-aerosol 2 spray intranasal BID Rx Instructions: administer into each nostril lamotrigine [Lamictal] 200 mg tablet 200 mg PO BID levothyroxine 25 mcg capsule 25 mcg PO QDAY loratadine 10 mg tablet 10 mg PO QDAY montelukast [Singulair] 10 mg tablet 10 mg PO QDAY mycophenolate mofetil [CellCept] 500 mg tablet 500 mg PO Q12H nifedipine [Procardia XL] 30 mg tablet extended release 24hr 30 mg PO QDAY prednisone 5 mg tablet 5 mg PO QDAY tacrolimus [Prograf] 0.5 mg capsule 1.5 mg PO Q12H torsemide 10 mg tablet 10 mg PO QAM trazodone 100 mg tablet 100 mg PO QDAY Trelegy Ellipta 200-62.5-25 mcg blister with device 1 inh inhalation QDAY voriconazole [Vfend] 200 mg tablet 200 mg PO Q12H Rx Instructions: administer on empty stomach, at least 1 hour before or after meal(s) gabapentin 100 mg capsule See Rx Instructions .ROUTE .COMPLEX Qty: 20 0RF Rx Instructions: 100 mg orally every other day after dialysis. Follow Up/Referrals: Ryan Cole MD [Primary Care Provider] - Stand Alone Forms: [employer] Info Instructions
--- OUTSIDE RECORDS SUMMARY | 2023-09-27 07:20 | XMS_ITS | Referral Summary ---
Author Name Unknown Organization [facility] Address [address] [place] [address]. [place] [address] Care Team Providers Care Pinball Machine Repairer Name Role Phone Sánchez Kowalski APRN TOOL DIE MAKER Unavailable Marlen Esposito MD Unavailable Patricia Willoughby RD Unavailable Unavail able Karen Steel Unavailable Marlen Esposito MD Unavailable Karen Steel Unavailable [phone] Sánchez Kowalsik APRN TOOL DIE MAKER Unavailable [phone] Unavailable Unavail able Ryan Cole MD Primary Care Provider Marlen Esposito MD Unavailable Encounters Date Type Department Care Team Description 09/10/2023 Telephone [facility] [address] [place] [phone] Linnea Graff emergency room registered nurse Recipient Evaluation (Pre Kidney Urgent Care Physician Assistant Call.Note.Letter - Declined as a kidney transplant candidate. ) 09/10/2023 [facility] Medical Advice [facility] [address] [place] [phone] Linnea Graff RN 09/01/2023 [facility] Medical Advice [facility] [address] [place] [phone] Linnea Graff, RN 08/14/2023 Telephone [facility] [address] [place] [phone] Linnea Graff, emergency room registered nurse Recipient Evaluation (Pre Kidney Urgent Care Physician Assistant Call.Note) 08/13/2023 [facility] [address] [place] [phone] Linnea Graff, RN 07/27/2023 [facility] [address] [place] [phone] Linnea Graff, RN 07/21/2023 [facility] [address] [address] Linnea Graff RN 07/21/2023 Telephone [facility] [address] [address] Linnea Graff emergency room registered nurse Recipient Evaluation 07/21/2023 [facility] [address] [place] [phone] Linnea Graff, RN 07/15/2023 [facility] [address] [place] [phone] Linnea Graff, RN 07/10/2023 [facility] [address] [place] [phone] Linnea Graff, RN from Last 3 [...] by mouth 0 04/11/2023 Activ e B Nxpuqyw-E-Yedwq Acid (DAVE-DAVID RX) 1 mg TABS Take 1 tablet by mouth daily (with dinner) 0 09/08/2021 Active benzonatate (TESSALON) 100 MG capsule Take 100 mg by mouth 0 03/27/2023 Acti ve budesonide (PULMICORT) 0.5 MG/2ML neb solution [place] 0.5 mg in nostril 0 12/10/2022 12/10/2023 [...] 80.7 kg (178 lb) 06/02/2023 8:13 AM TELESALES REPRESENTATIVE Height 175.3 cm (5' 9) 03/27/2023 11:56 AM CDT Body Mass Index 26.29 03/27/2023 11:56 AM CDT Plan of Treatment Upcoming Encounters Date Type Department Care Team (Late st Contact Info) Description 10/06/2023 4:00 PM CDT Office Visit [facility] [address] [place] [phone] Barbara Valdes MD [address] [facility] [address] [place], [place] [address] Care Teams Pinball Machine Repairer Relationship Specialty Start Date End Date Ryan Cole MD [address] [place] [address] PCP - General 06/02/23 Sánchez Kowalski, GAS ATTENDANT TOOL DIE MAKER [address] [place] [address] Nurse Practitioner Nephrology 04/11/23 Marlen Esposito MD [address] [place] [address] [phone] Surgery 04/11/[address] [facility] [address] [facility] [address] [place] [address] Registered Dietitian Dietitian, Registered 04/11/23 Karen Steel, [facility] Metropolitan Editor 04/11/23 Marlen Esposito MD [address] [place] [address] Surgery 05/21/23 Karen Steel, [facility] Metropolitan Editor 05/21/23 Sánchez Kowalski APRN TOOL DIE MAKER [address] [place] [address] Nurse Practitioner Nephrology 05/21/[address] [address] Registered Dietitian Dietitian, Registered 05/21/23 Marlen Esposito MD [address] [place] [address] Assigned Surgical Provider 06/21/23
--- OUTSIDE RECORDS SUMMARY | 2023-09-27 07:20 | XMS_ITS | Clinical Summary ---
Author Name Unknown Organization [facility] Address [address] [place] [address] Care Team Providers Care Fretted Instrument Maker Hand Name Role Phone Sánchez Kowalski APRN GUNSTOCK REPAIRER Unavailable Marlen Esposito MD Unavailable Patricia Willoughby RD Unavailable Unavail able Karen Steel MOBILE SECURITY ARCHITECT Unavailable Marlen Esposito MD Unavailable Karen Steel MOBILE SECURITY ARCHITECT Unavailable Sánchez Kowalski APRN GUNSTOCK REPAIRER Unavailable [phone] Unavailable Unavail able Ryan [...] by mouth 0 04/11/2023 Activ e B Dkjpxuu-R-Taocc Acid (DAVE-DAVID RX) 1 mg TABS Take 1 tablet by mouth daily (with dinner) 0 09/08/2021 Active benzonatate (TESSALON) 100 MG capsule Take 100 mg by mouth 0 03/27/2023 Acti ve budesonide (PULMICORT) 0.5 MG/2ML neb solution [place] 0.5 mg in nostril 0 12/10/2022 12/10/2023 [...] Type Department Care Team Description 09/10/2023 Telephone [facility] [address] [place] [phone] Linnea Graff it solutions sales consultant Recipient Evaluation (Pre Kidney Tread Builder Call.Note.Letter - Declined as a kidney transplant candidate. ) 09/10/2023 [facility] Medical Advice [facility] [address] [place] [phone] Linnea Graff RN 09/01/2023 [facility] Medical Advice [facility] [address] [place] [phone] Linnea Graff, RN 08/14/2023 Telephone [facility] [address] [place] [phone] Linnea Graff it solutions sales consultant Recipient Evaluation (Pre Kidney Tread Builder Call.Note) 08/13/2023 [facility] Medical Advice [facility] [address] [place] [phone] Linnea Graff, RN 07/27/2023 [facility] Medical Advice [facility] [address] [place] [phone] Linnea Graff, RN 07/21/2023 [facility] Medical Advice [facility] [address] [place] [phone] Linnea Graff, RN 07/21/2023 Telephone [facility] [address] [place] [phone] Linnea Graff, it solutions sales consultant Recipient Evaluation 07/21/2023 [facility] Medical Advice [facility] [address] [place] [phone] Linnea Graff, RN 07/15/2023 [facility] Medical Advice [facility] [address] [place] [phone] Linnea Graff, RN 07/10/2023 [facility] Medical Advice [facility] [address] [place] [phone] Linnea Graff, RN from Last 3 [...] 80.7 kg (178 lb) 06/02/2023 8:13 AM SECTION GANG WORKER Height 175.3 cm (5' 9) 03/27/2023 11:56 AM CDT Body Mass Index 26.29 03/27/2023 11:56 AM CDT Plan of Treatment Upcoming Encounters Date Type Department Care Team (Late st Contact Info) Description 10/06/2023 4:00 PM CDT Office Visit [facility] [address] [facility] [place] [address] Barbara Valdes MD [address] [place] [address] CLINIC [address] [place], [place] [phone] Health Maintenance Due Date Last Done Comments [...] age to complete this topic Care Teams Fretted Instrument Maker Hand Relationship Specialty Start Date End Date Ryan Cole MD [address] [place] [address] PCP - General 06/02/23 Sánchez Kowalski, METER READING CLERK GUNSTOCK REPAIRER [address] [place] [address] Nurse Practitioner Nephrology 04/11/23 Marlen Esposito MD [address] [place] [address] Surgery 04/11/[address] [address] Registered Dietitian Dietitian, Registered 04/11/23 Karen Steel, [facility] Supervisor Food Checkers And Cashiers 04/11/23 Marlen Esposito MD [address] [place] [address] Surgery 05/21/23 Karen Steel, [facility] Supervisor Food Checkers And Cashiers 05/21/23 Sánchez Kowalski APRN CNP [address] [place] [address] 613965 Nurse Practitioner Nephrology 05/21/[address] [address] Registered Dietitian Dietitian, Registered 05/21/23 Marlen Esposito MD [address] [place] [address] Assigned Surgical Provider 06/21/23
--- OUTSIDE RECORDS SUMMARY | 2023-09-27 07:20 | XMS_ITS | Encounter Summary ---
Author Name Unknown Organization [employer] Address [address] [place] [address]. [place] [address] Care Team Providers Care Personnel Representative Name Role Phone Sánchez Kowalski APRN AIRCRAFT DISPATCHER Unavailable Marlen Esposito MD Unavailable [phone] Unavailable Unavail able Karen Steel Unavailable Marlen Esposito MD Unavailable Karen Steel Unavailable [phone] Sánchez Kowalski APRN AIRCRAFT DISPATCHER Unavailable [phone] Unavailable Unavail able Ryan Cole MD Primary Care Provider Marlen Esposito MD Unavailable [phone] Reason for Visit * Reason Onset Date Comments Transplant Recipient Evaluation 09/10/2023 Pre Kidney Naphthalene Operator Call.Note.Letter - Declined as a kidney transplant candidate. Encounter Details Date Type Department Care Team (Late st Contact Info) Description 09/10/2023 Telephone [facility] [address] [place] [address] Linnea Graff stock grader Recipient Evaluation (Pre Kidney Naphthalene Operator Call.Note.Letter - Declined as a kidney transplant [...] decision. Reviewed next steps based on outcomes: Machine Striper to call pt to make appt with Dr. Valdes. Patient will not be listed because they are not a candidate-will receive: -A letter indicating why they did not meet criteria for transplant at [facility]. Confirmed that patient has contact information for additional questions or concerns. Pt expressed very good understanding of all and was in good agreement with the plan. Generated declined as a candidate letter today in [facility] - electronically sent to pt/ providers. documented in this encounter Plan of Treatment Upcoming Encounters Date Type Department Care Team ([facility] st Contact Info) Description 10/06/2023 4:00 PM CDT Office Visit [facility] [address] [place] [address] Barbara Valdes MD [address] [place] [address] [phone] documented as of this encounter Visit Diagnoses Diagnosis ESRD (end stage renal disease) on dialysis (H)- Primary End stage renal disease History of liver transplant (H) Liver replaced by transplant Organ transplant candidate Awaiting organ transplant status Pre-transplant evaluation for kidney transplant S/P liver transplant (H) Liver replaced by transplant Essential hypertension Unspecified essential hypertension documented in this encounter Care Teams Personnel Representative Relationship Specialty Start Date End Date Ryan Cole MD [address] [place] [address] PCP - General 06/02/23 Sánchez Kowalski APRN AIRCRAFT DISPATCHER [address] [place] [address] [phone] Nurse Practitioner Nephrology 04/11/23 Marlen Esposito MD [address] [place] [address] [phone] Surgery 04/11/[address] [address] Registered Dietitian Dietitian, Registered 04/11/23 Karen Steel, [facility] Accounting Coordinator 04/11/23 Marlen Esposito MD [address] [place] [address] [phone] Surgery 05/21/23 Karen Steel, [facility] Accounting Coordinator 05/21/23 Sánchez Kowalski APRN AIRCRAFT DISPATCHER [address] [place] [address] Nurse Practitioner Nephrology 05/21/[address] [address] Registered Dietitian Donalitian, Registered 05/21/23 Marlen Esposito MD [address] [place] [address] Assigned Surgical Provider 06/21/23 documented as of this encounter
--- OUTSIDE RECORDS SUMMARY | 2023-09-27 07:20 | XMS_ITS | Encounter Summary ---
Author Name Unknown Organization [facility] Address [address] [place] [address]. [place] [address] Care Team Providers Care Laundry Pricing Clerk Name Role Phone Sánchez Kowalski APRN PLUG GROWER Unavailable [phone] Marlen Esposito MD Unavailable [phone] Unavailable Unavail able Karen Steel Unavailable [phone] Marlen Esposito MD Unavailable [phone] Karen Steel Unavailable [phone] Sánchez Kowalski APRN PLUG GROWER Unavailable [phone] Unavailable Unavail able Ryan Cole MD Primary Care Provider [phone] Marlen Esposito MD Unavailable [phone] Encounter Details Date Type Department Care Team (Late st Contact Info) Description 09/10/2023 [facility] [place] [facility] [address] [place] [address] Linnea Graff RN Social History [...] Description 10/06/2023 4:00 PM CDT Office Visit [facility] [address] [place] [address] Barbara Valdes MD [address] [place] [address] [place] [address] documented as of this encounter Visit Diagnoses Not on filedocumented in this encounter Care Teams Laundry Pricing Clerk Relationship Specialty Start Date End Date Ryan Cole MD [address] [place] [address] PCP - General 06/02/23 Sánchez Kowalski APRN PLUG GROWER [address] [place] [address] Nurse Practitioner Nephrology 04/11/23 Marlen Esposito MD [address] [place] [address] Surgery 04/11/[address] [place] [address] Registered Dietitian Dietitian, Registered 04/11/23 Karen Steel, [facility] Supervisor Floor Assembly 04/11/23 Marlen Esposito MD [address] [place] [address] Surgery 05/21/23 Karen Steel WATCH HAIRSPRING ASSEMBLER Supervisor Floor Assembly 05/21/23 Sánchez Kowalski APRN PLUG GROWER [address] [place] [address] 014525 Nurse Practitioner Nephrology 05/21/[address] [place] [address] Registered Dietitian Dietitian, Registered 05/21/23 Marlen Esposito MD [address] [place] [address] Assigned Surgical Provider 06/21/23 documented as of this encounter
--- OUTSIDE RECORDS SUMMARY | 2023-09-27 07:20 | XMS_ITS | Encounter Summary ---
Author Name Unknown Organization [facility] Address [address] [place] [address]. [place] [address] Care Team Providers Care Sales Enablement Manager Name Role Phone Sánchez Kowalski APRN DYNAMICIST Unavailable Marlen Esposito MD Unavailable Patricia Willoughby RD Unavailable Unavail able Karen Steel Unavailable [phone] Marlen Esposito MD Unavailable [phone] Karen Steel Unavailable [phone] Sánchez Kowalski APRN DYNAMICIST Unavailable [phone] Unavailable Unavail able Ryan Cole MD Primary Care Provider Marlen Esposito MD Unavailable [phone] Encounter Details Date Type Department Care Team (Late st Contact Info) Description 09/01/2023 [facility] Medical Advice [facility] [address] [place] [address] Linnea Graff RN Social History [...] Description 10/06/2023 4:00 PM CDT Office Visit [facility] [address] [place] [address] Barbara Valdes MD [address] [place] [address] [place] [address] documented as of this encounter Visit Diagnoses Not on filedocumented in this encounter Care Teams Sales Enablement Manager Relationship Specialty Start Date End Date Ryan Cole MD [address] [place] [address] PCP - General 06/02/23 Sánchez Kowalski APRN DYNAMICIST [address] [place] [address] Nurse Practitioner Nephrology 04/11/23 Marlen Esposito MD [address] [place] [address] Surgery 04/11/[address] [place] [address] Registered Dietitian Dietitian, Registered 04/11/23 Karen Steel, [facility] Yoker Machine Operator 04/11/23 Marlen Esposito MD [address] [place] [address] Surgery 05/21/23 Karen Steel ADVERTISING VICE PRESIDENT [place] Machine Operator 05/21/23 Sánchez Kowalski APRN DYNAMICIST [address] [place] [address] [phone] Nurse Practitioner Nephrology 05/21/[address] [place] [address] Registered Dietitian Dietitian, Registered 05/21/23 Marlen Esposito MD [address] [place] [address] Assigned Surgical Provider 06/21/23 documented as of this encounter
--- OUTSIDE RECORDS SUMMARY | 2023-09-27 07:21 | XMS_ITS | Encounter Summary ---
Author Name Unknown Organization [facility] Address [address] [place] [address]. [place] [address] Care Team Providers Care Filler Mixer Name Role Phone Sánchez Kowalski APRN CONTROL SYSTEM COMPUTER SCIENTIST Unavailable Marlen Esposito MD Unavailable [phone] Unavailable Unavail able Karen Steel Unavailable Marlen Esposito MD Unavailable Karen Steel Unavailable Sánchez Kowalski APRN CONTROL SYSTEM COMPUTER SCIENTIST Unavailable [phone] Unavailable Unavail able Ryan Cole MD Primary Care Provider [phone] Reason for Visit * Reason Onset Date Comments Transplant Recipient Evaluation 06/19/2023 Pre Kidney Splash Line Operator Call.Note.Letter Encounter Details Date Type Department Care Team (Late st Contact Info) Description 06/19/2023 Telephone [facility] [address] [place] [address] Linnea Graff RN Transplant Recipient Evaluation (Pre Kidney Splash Line Operator Call.Note.Letter) Social History Tobacco Use Types Packs/Day [...] based on outcomes: pt to work with [facility] Transplant Team to obtain a recommendation to [...] would like to have testing done with [employer] or locally Confirmed with patient that on successful completion of outstanding components, patient is eligiblefor active status and they will receive a follow-up call. Confirmed that patient has contact information for additional questions or concerns. Pt expressed excellent understanding of all and was in good agreement with the plan. Generated Transplant Evaluation Summary Letter today in [facility] - electronically sent to pt/ providers. GEBACK ANALYST documented in this encounter Plan of Treatment Upcoming Encounters Date Type Department Care Team (Late st Contact Info) Description 10/06/2023 4:00 PM CDT Office Visit [facility] [address] [place] [address] Barbara Valdes MD [address] [place] [address] [phone] documented as of this encounter Visit Diagnoses Not on filedocumented in this encounter Care Teams Filler Mixer Relationship Specialty Start Date End Date Ryan Cole MD [address] [place] [address] PCP - General 06/02/23 Sácnhez Kowalski APRN CONTROL SYSTEM COMPUTER SCIENTIST [address] [place] [address] [phone] Nurse Practitioner Nephrology 04/11/23 Marlen Esposito MD [address] [place] [address] MD Surgery 04/11/[address] [address] Registered Dietitian Dietitian, Registered 04/11/23 Karen Steel, [facility] Advanced Manufacturing Vice President 04/11/23 Marlen Esposito MD [address] [place] [address] [phone] Surgery 05/21/23 Karen Steel, [facility] Advanced Manufacturing Vice President 05/21/23 Sánchez Kowalski APRN CONTROL SYSTEM COMPUTER SCIENTIST [address] [place] [address] 558835 Nurse Practitioner Nephrology 05/21/[address] [address] Registered Dietitian Dietitian, Registered 05/21/23 documented as of this encounter
--- OUTSIDE RECORDS SUMMARY | 2023-09-27 07:21 | XMS_ITS ---
Author Name Unknown Organization [facility] Address [address] [place] [address]. [place] [address] Care Team Providers Care Marketing Compliance Manager Name Role Phone Sánchez Kowalski APRN FUEL TRUCK DRIVER Unavailable [phone] Marlen Esposito MD Unavailable [phone] Unavailable Unavail able Karen Steel SUGAR LABORATORY ASSISTANT Unavailable [phone] Marlen Esposito MD Unavailable [phone] Karen Steel Unavailable [phone] Sánchez Kowalski APRN FUEL TRUCK DRIVER Unavailable [phone] Unavailable Unavail able Ryan Cole MD Primary Care Provider Marlen Esposito MD Unavailable [phone] Transplant Episode Kidney Candidate [facility] ([place], [place]) - [facility] Evaluation began on 06/09/2023 Marked as Declined on 09/11/2023 Reason: Does Not Meet Criteria Medical Kidney CoordinatorLinnea Graff RN Phone: N/A Fax: N/A Email: [email or web address] Scores Score Value Updated Exceptions/Reas ons CPRA Not available EPTS (Calc) 49 09/27/2023 [place] 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, Specify - CNI toxicity Care Team Name Role Phone Fax Email Linnea A Siers, RN Kidney Coordinator N/A N/A [email or web address] Ryan Cole MD Referring Physician [phone] N/A Linnea Graff RN Hat Copyist N/A N/A [email or web address] Leonid Simon Appraiser Personal Property [phone] N/A Manda Hernandez, CARLOS SHINGLE SHEARING MACHINE OPERATOR N/A N/A N/A Trung Plasencia Assigned Infectious Disease Provider [phone] N/A Otoniel Norwood DO R D Intern [phone] N/A Events Pre-Transplant Referred: 03/18/2023 Evaluation began: 06/09/2023 Committee: 09/10/2023 Dialysis History Dialysis History Start End Type Comments Center [facility] Information Center Phone Fax Address [facility] [phone] [address] [facility] [id number]
--- OUTSIDE RECORDS SUMMARY | 2023-09-27 07:21 | XMS_ITS | Encounter Summary ---
Author Name Unknown Organization [place] Address [address] [place] [address] Care Team Providers Care Nuclear Engineering Technician Name Role Phone Sánchez Kowalski APRN FUNERAL COUNSELOR Unavailable Marlen Esposito MD Unavailable Patricia Willoughby RD Unavailable Unavail able Karen Steel CAR BLOCKER Unavailable [phone] Marlen Esposito MD Unavailable [phone] Karen Steel Unavailable Sánchez Kowalski APRN FUNERAL COUNSELOR Unavailable [phone] Unavailable Unavail able System, Provider Not In Primary Care Provider Un available Ryan Cole MD Primary Care Provider [phone] Marlen Esposito MD Unavailable [phone] Encounter Details Date Type Department Care Team (Latest Contact Info) Description 04/07/2018 Medical Correspondence [facility] [address] [place] [address] Scan, Non-Provider LETTER FROM [facility] Social History Tobacco Use Types Packs/Day [...] Description 10/06/2023 4:00 PM CDT Office Visit [facility] [address] [place] [address] Barbara Valdes MD 6 [facility] [address] [place], [place] [phone] documented as of this encounter Visit Diagnoses Not on filedocumented in this encounter Care Teams Nuclear Engineering Technician Relationship Specialty Start Date End Date System, Provider Not In PCP - General Clinic 05/21/23 05/21/23 [place] [address] PCP - General 06/02/23 Sánchez Kowalski APRN FUNERAL COUNSELOR [address] [place] [address] 144575 Nurse Practitioner Nephrology 04/11/23 Marlen Esposito MD [address] [place] [address] 56129 Surgery 04/11/[address] [place] [address] Registered Dietitian Dietitian, Registered 04/11/23 Karen Steel CAR BLOCKER Fisheries Manager 04/11/23 Marlen Esposito MD [address] [place] [address] 50392 Surgery 05/21/23 Karen Steel LICSW Fisheries Manager 05/21/23 Sánchez Kowalski APRN FUNERAL COUNSELOR [address] [place] [address] 496895 Nurse Practitioner Nephrology 05/21/[address] [place] [address] Registered Dietitian Dietitian, Registered 05/21/23 Marlen Esposito MD [address] [place] [address] 90314 Assigned Surgical Provider 06/21/23 documented as of this encounter
--- OUTSIDE RECORDS SUMMARY | 2023-09-27 07:21 | XMS_ITS | Encounter Summary ---
Author Name Unknown Organization [place] Address [address] [place] [address]. [place] [address] Care Team Providers Care Aquarium Specialist Name Role Phone Sánchez Kowalski APRN TOOL CHASER Unavailable Marlen Esposito MD Unavailable Patricia Willoughby RD Unavailable Unavail able Karen Steel Unavailable Marlen Esposito MD Unavailable [phone] Kraen Steel Unavailable [phone] Sánchez Kowalski APRN TOOL CHASER Unavailable Patricia Willoughby RD Unavailable Unavail able Ryan Cole MD Primary Care Provider [phone] Marlen Esposito MD Unavailable [phone] Encounter Details Date Type Department Care Team (Late st Contact Info) Description 06/06/2023 [facility] [address] [place] [address] Sánchez Kowalski APRN TOOL CHASER [address] [place] [address] Social History Tobacco Use Types [...] Description 10/06/2023 4:00 PM CDT Office Visit [facility] [address] [place] [phone] Barbara Valdes MD [address] [place] [address] 368395 documented as of this encounter Visit Diagnoses Not on filedocumented in this encounter Care Teams Aquarium Specialist Relationship Specialty Start Date End Date Ryan Cole MD [facility] [place] [address] PCP - General 06/02/23 Sánchez Kowalski APRN TOOL CHASER [address] [place] [address] [phone] Nurse Practitioner Nephrology 04/11/23 Marlen Esposito MD [address] [place] [address] 933145 Surgery 04/11/[address] [place] [address] Registered Dietitian Dietitian, Registered 04/11/23 Karen Steel, [facility] Internet Systems Administrator 04/11/23 Marlen Esposito MD [address] [place] [address] [phone] Surgery 05/21/23 Karen Steel, [facility] Internet Systems Administrator 05/21/23 Sánchez Kowalski APRN TOOL CHASER [address] [place] [address] 63028 Nurse Practitioner Nephrology 05/21/[address] [place] [address] Registered Dietitian Dietitian, Registered 05/21/23 Marlen Esposito MD [address] [place] [address] 67464 Assigned Surgical Provider 06/21/23 documented as of this encounter
--- OUTSIDE RECORDS SUMMARY | 2023-09-27 07:21 | XMS_ITS | Encounter Summary ---
Author Name Unknown Organization [facility] Address [address] [place] [address]. [place] [address] Care Team Providers Care Any Commodity Sales Deliverer Name Role Phone Sánchez Kowalski APRN MEASUREMENT PSYCHOLOGIST Unavailable Marlen Esposito MD Unavailable [phone] Unavailable Unavail able Karen Steel Unavailable [phone] Marlen Esposito MD Unavailable [phone] Karen Steel Unavailable [phone] Sánchez Kowalski APRN MEASUREMENT PSYCHOLOGIST Unavailable [phone] Unavailable Unavail able Ryan Cole MD Primary Care Provider Marlen Esposito MD Unavailable [phone] Encounter Details Date Type Department Care Team (Late st Contact Info) Description 07/21/2023 [facility] [place]ice [facility] [address] [place] [address] Linnea Graff RN Social History [...] Visit [facility] [address] [place] [address] Barbara Valdes MD [address] [place] [address] [place] [address] documented as of this encounter Visit Diagnoses Not on filedocumented in this encounter Care Teams Any Commodity Sales Deliverer Relationship Specialty Start Date End Date Ryan Cole MD [address] [place] [address] PCP - General 06/02/23 Sánchez Kowalski APRN MEASUREMENT PSYCHOLOGIST [address] [place] [address] 66379 Nurse Practitioner Nephrology 04/11/23 Marlen Esposito MD [address] [place] [address] 40503 Surgery 04/11/[address] [place] [address] Registered Dietitian Dietitian, Registered 04/11/23 Karen Steel, [facility] Raymond Mill Operator 04/11/23 Marlen Esposito MD [address] [place] [address] 90015 Surgery 05/21/23 Karen Steel INTERPRETER AND TRANSLATOR [place] Mill Operator 05/21/23 Sánchez Kowalski APRN MEASUREMENT PSYCHOLOGIST [address] [place] [address] 566405 Nurse Practitioner Nephrology 05/21/[address] [place] [address] Registered Dietitian Dietitian, Registered 05/21/23 Marlen Esposito MD [address] [place] [address] 48387 Assigned Surgical Provider 06/21/23 documented as of this encounter
--- OUTSIDE RECORDS SUMMARY | 2023-09-27 07:21 | XMS_ITS | Encounter Summary ---
Author Name Unknown Organization [facility] Address [address] [place] [address]. [place] [address] Care Team Providers Care Cuff Setter Name Role Phone Sánchez Kowalski APRN CLIPMAN Unavailable Marlen Esposito MD Unavailable [phone] Unavailable Unavail able Karen Steel Unavailable [phone] Marlen Esposito MD Unavailable [phone] Karen Steel Unavailable Sánchez Kowalski APRN CLIPMAN Unavailable [phone] Unavailable Unavail able Ryan Cole MD Primary Care Provider Marlen Esposito MD Unavailable [phone] Reason for Visit * Reason Onset Date Comments Transplant Recipient Evaluation 08/14/2023 Pre Kidney Boiling Tub Operator Call.Note Encounter Details Date Type Department Care Team (Late st Contact Info) Description 08/14/2023 Telephone [facility] [address] [place] [address] Linnea Graff RN Transplant Recipient Evaluation (Pre Kidney Boiling Tub Operator Call.Note) Social History Tobacco Use Types [...] Madelin Cardenas RN post liver tx coord. [employer] documented in this encounter Plan of Treatment Upcoming Encounters Date Type Department Care Team (Late st Contact Info) Description 10/06/2023 4:00 PM CDT Office Visit [facility] [address] [place] [address] Barbara Valdes MD [address] [place] [address] [place] [address] documented as of this encounter Visit Diagnoses Not on filedocumented in this encounter Care Teams Cuff Setter Relationship Specialty Start Date End Date Ryan Cole MD [address] [place] [address] PCP - General 06/02/23 Sánchez Kowalski APRN CLIPMAN [address] [place] [address] Nurse Practitioner Nephrology 04/11/23 Marlen Esposito MD [address] [place] [address] 17894 Surgery 04/11/[address] [address] Registered Dietitian Dietitian, Registered 04/11/23 Karen Steel, [facility] Blueprint Processor 04/11/23 Marlen Esposito MD [address] [place] [address] 20362 Surgery 05/21/23 Karen Steel, [facility] Blueprint Processor 05/21/23 Sánchez Kowalski APRN CLIPMAN [address] [place] [address] 27742 Nurse Practitioner Nephrology 05/21/[address] [address] Registered Dietitijone Muse, Registered 05/21/23 Marlen Esposito MD [address] [place] [address] Assigned Surgical Provider 06/21/23 documented as of this encounter
--- OUTSIDE RECORDS SUMMARY | 2023-09-27 07:21 | XMS_ITS | Encounter Summary ---
Author Name Unknown Organization [place] [facility] Address [address] [place] [address]. [place] [address] Care Team Providers Care Centerless Grinding Machine Adjuster Name Role Phone Sánchez Kowalski APRN GLOVE SEWER Unavailable Marlen Esposito MD Unavailable [phone] Unavailable Unavail able Karen Steel Unavailable [phone] Marlen Esposito MD Unavailable [phone] Karen Steel Unavailable [phone] Sánchez Kowalski APRN GLOVE SEWER Unavailable [phone] Unavailable Unavail able Ryan Cole MD Primary Care Provider [phone] Marlen Esposito MD Unavailable [phone] Encounter Details Date Type Department Care Team (Late st Contact Info) Description 07/10/2023 [facility] Medical Advice [facility] [address] [place] [address] Linnea Graff RN Social History [...] Description 10/06/2023 4:00 PM CDT Office Visit [facility] [address] [place] [address] Barbara Valdes MD [address] [place] [address] [place] [address] documented as of this encounter Visit Diagnoses Not on filedocumented in this encounter Care Teams Centerless Grinding Machine Adjuster Relationship Specialty Start Date End Date Ryan Cole MD [address] [place] [address] PCP - General 06/02/23 Sánchez Kowalski APRN GLOVE SEWER [address] [place] [address] 77184 Nurse Practitioner Nephrology 04/11/23 Marlen Esposito MD [address] [place] [address] 89798 Surgery 04/11/[address] [place] [address] Registered Dietitian Dietitian, Registered 04/11/23 Karen Steel, [facility] Gas Plant Technician 04/11/23 Marlen Esposito MD [address] [place] [address] 81131 Surgery 05/21/[address]ITOR Gas Plant Technician 05/21/23 Sánchez Kowalski APRN GLOVE SEWER [address] [place] [address] 718005 Nurse Practitioner Nephrology 05/21/[address] [place] [address] Registered Dietitian Dietitian, Registered 05/21/23 Marlen Esposito MD [address] [place] [address] 33013 Assigned Surgical Provider 06/21/23 documented as of this encounter
--- OUTSIDE RECORDS SUMMARY | 2023-09-27 07:21 | XMS_ITS | Encounter Summary ---
Author Name Unknown Organization [facility] Address [address] [place] [address]. [place] [address] Care Team Providers Care Acquisition Consultant Name Role Phone Sánchez Kowalski APRN OFFICE PROFESSIONALS Unavailable Marlen Esposito MD Unavailable [phone] Unavailable Unavail able Karen Steel PRICE CHECKER Unavailable [phone] Marlen Esposito MD Unavailable [phone] Karen Steel Unavailable [phone] Sánchez Kowalski APRN OFFICE PROFESSIONALS Unavailable [phone] Unavailable Unavail able System, Provider Not In Primary Care Provider Un available Ryan Cole MD Primary Care Provider [phone] Marlen Esposito MD Unavailable [phone] Encounter Details Date Type Department Care Team (Late st Contact Info) Description 04/11/2023 [facility] [place] Medical Advice [facility] Transplant Clinic [address] [place] [address] Linnea Graff, [place] Social History [...] Description 10/06/2023 4:00 PM CDT Office Visit [facility] Transplant Clinic [address] [place] [phone] Barbara Valdes MD 6 [facility] [address] [place], [place] 6510[address] documented as of this encounter Visit Diagnoses Not on filedocumented in this encounter Care Teams Acquisition Consultant Relationship Specialty Start Date End Date System, Provider Not In PCP - General Clinic 05/21/23 05/21/23 Ryan Cole MD [address] [place] [address] PCP - General 06/02/23 Sánchez Kowalski APRN OFFICE PROFESSIONALS [address] [place] [address] 837665 Nurse Practitioner Nephrology 04/11/23 Marlen Esposito MD [address] [place] [address] 21849 Surgery 04/11/[address] [facility] [address] [facility] 84 [place] [address] Registered Dietitian Dietitian, Registered 04/11/23 Karen Steel LICSW Lumber Carrier 04/11/23 Marlen Esposito MD [address] [place] [address] 41813 Surgery 05/21/23 Karen Steel, [facility] Lumber Carrier 05/21/23 Sánchez Kowalski APRN [facility] [address] [place] [address] 27239 Nurse Practitioner Nephrology 05/21/[address] [address] Registered Dietitian Dietitian, Registered 05/21/23 Marlen Esposito MD [address] [place] [address] [phone] Assigned Surgical Provider 06/21/23 documented as of this encounter
--- OUTSIDE RECORDS SUMMARY | 2023-09-27 07:21 | XMS_ITS | Encounter Summary ---
Author Name Unknown Organization [place] Address [address] [place] [address]. [place] [address] Care Team Providers Care Aix Administrator Name Role Phone Sánchez Kowalski APRN INDUSTRIAL MANUFACTURING TECHNICIAN Unavailable Marlen Esposito MD Unavailable [phone] Unavailable Unavail able Karen Steel Unavailable [phone] Marlen Esposito MD Unavailable [phone] Karen Steel Unavailable [phone] Sánchez Kowalski APRN INDUSTRIAL MANUFACTURING TECHNICIAN Unavailable [phone] Unavailable Unavail able Ryan Cole MD Primary Care Provider Marlen Esposito MD Unavailable [phone] Encounter Details Date Type Department Care Team (Late st Contact Info) Description 07/15/2023 [facility] [place] Medical Advice [facility] [address] [place] [address] Linnea Graff RN Social History [...] Visit [facility] [address] [place] [address] Barbara Valdes MD [address] [place] [address] [place] [address] documented as of this encounter Visit Diagnoses Not on filedocumented in this encounter Care Teams Aix Administrator Relationship Specialty Start Date End Date Ryan Cole MD [address] [place] [address] PCP - General 06/02/23 Sánchez Kowalski APRN INDUSTRIAL MANUFACTURING TECHNICIAN [address] [place] [address] 39749 Nurse Practitioner Nephrology 04/11/23 Marlen Esposito MD [address] [place] [address] 82662 Surgery 04/11/[address] [place] [address] Registered Dietitian Dietitian, Registered 04/11/23 Karen Steel, [facility] Economic Consultant 04/11/23 Marlen Esposito MD [address] [place] [address] 37680 Surgery 05/21/23 Karen Steel GRIEF COUNSELOR Economic Consultant 05/21/23 Sánchez Kowalski APRN INDUSTRIAL MANUFACTURING TECHNICIAN [address] [place] [address] 374375 Nurse Practitioner Nephrology 05/21/[address] [place] [address] Registered Dietitian Dietitian, Registered 05/21/23 Marlen Esposito MD [address] [place] [address] 39929 Assigned Surgical Provider 06/21/23 documented as of this encounter
--- OUTSIDE RECORDS SUMMARY | 2023-09-27 07:21 | XMS_ITS | Encounter Summary ---
Author Name Unknown Organization [facility] Address [address] [place] [address]. [place] [address] Care Team Providers Care Print Shop Assistant Name Role Phone Sánchez Kowalski APRN MARINE STEAMFITTER Unavailable Marlen Esposito MD Unavailable [phone] Unavailable Unavail able Karen Steel Unavailable [phone] Marlen Esposito MD Unavailable [phone] Karen Steel Unavailable [phone] Sánchez Kowalski APRN MARINE STEAMFITTER Unavailable [phone] Unavailable Unavail able Ryan Cole MD Primary Care Provider [phone] Marlen Esposito MD Unavailable [phone] Encounter Details Date Type Department Care Team (Late st Contact Info) Description 06/18/2023 Orders Only [facility] [address] [place] [address] Outside, Provider Social History Tobacco Use Types [...] Description 10/06/2023 4:00 PM CDT Office Visit [facility] [address] [place] [phone] Barbara Valdes MD 6 [facility] [address] [place], [place] [address] documented as of this encounter Procedures Procedure Name Priority Date/Time Associated Diagnosis Comments HLA RESULT REPORT 06/18/2023 1:05 PM TRICHOLOGIST HLA RESULT REPORT 06/18/2023 1:05 PM TRICHOLOGIST documented in this encounter Results * HLA RESULT REPORT (06/18/2023 1:05 PM TRICHOLOGIST) Provider Outside LAB - IMMUNOLOGY ORD ERABLES * HLA RESULT REPORT (06/18/2023 1:05 PM TRICHOLOGIST) Provider Outside LAB - IMMUNOLOGY ORD ERABLES documented in this encounter Visit Diagnoses Not on filedocumented in this encounter Care Teams Print Shop Assistant Relationship Specialty Start Date End Date Ryan Cole MD [address] [place] [address] PCP - General 06/02/23 Sánchez Kowalski, MUSIC ARTIST MARINE STEAMFITTER [address] [place] [address] 919725 Nurse Practitioner Nephrology 04/11/23 Marlen Esposito MD [address] [place] [address] 825135 Surgery 04/11/[address] [place] [address] Registered Dietitian Dietitian, Registered 04/11/23 Karen Steel, [facility] Cobbler Upper 04/11/23 Marlen Esposito MD [address] [place] [address] 66876 Surgery 05/21/23 Karen Steel, [facility] Cobbler Upper 05/21/23 Sánchez Kowalski APRN MARINE STEAMFITTER [address] [place] [address] 16559 Nurse Practitioner Nephrology 05/21/[address] [place] [address] Registered Dietitian Dietitian, Registered 05/21/23 Marlen Esposito MD [address] [place] [address] 24283 Assigned Surgical Provider 06/21/23 documented as of this encounter
--- OUTSIDE RECORDS SUMMARY | 2023-09-27 07:21 | XMS_ITS | Encounter Summary ---
Author Name Unknown Organization [place] Address [address] [place] [address]. [place] [address] Care Team Providers Care Medication Tech Name Role Phone Sánchez Kowalski APRN TRANSPORT MANAGER Unavailable [phone] Marlen Esposito MD Unavailable Patricia Willoughby RD Unavailable Unavail able Karen Steel Unavailable Marlen Esposito MD Unavailable Karen Steel Unavailable Sánchez Kowalski APRN TRANSPORT MANAGER Unavailable [phone] Unavailable Unavail able Ryan Cole MD Primary Care Provider [phone] Marlen Esposito MD Unavailable [phone] Encounter Details Date Type Department Care Team (Late st Contact Info) Description 06/13/2023 Documentation Only [facility] Transplant Clinic [address] [place] [address] Scan, Non-Provider Social History Tobacco [...] Description 10/06/2023 4:00 PM CDT Office Visit [facility] Transplant Clinic [address] [place] [phone] Brabara Valdes MD [address] [place] [address] documented as of this encounter Visit Diagnoses Not on filedocumented in this encounter Care Teams Medication Tech Relationship Specialty Start Date End Date Ryan Cole MD [address] [place] [address] PCP - General 06/02/23 Sánchez Kowalski APRN TRANSPORT MANAGER [address] [place] [address]851 Nurse Practitioner Nephrology 04/11/23 Marlen Esposito MD [address] [place] [address] 96919 Surgery 04/11/[address] [place] [address] Registered Dietitian Dietitian, Registered 04/11/23 Karen Steel, TRAINING PERSONNEL SUPERVISOR Manager Process Improvement 04/11/23 Marlen Esposito MD [address] [place] [address] 84036 Surgery 05/21/23 Karen Steel TRAINING PERSONNEL SUPERVISOR Manager Process Improvement 05/21/23 Sánchez Kowalski APRN TRANSPORT MANAGER [address] [place] [address] 855295 Nurse Practitioner Nephrology 05/21/[address] [place] [address] Registered Dietitian Dietitian, Registered 05/21/23 Marlen Esposito MD 9 [place] [address] Assigned Surgical Provider 06/21/23 documented as of this encounter
--- OUTSIDE RECORDS SUMMARY | 2023-09-27 07:21 | XMS_ITS | Encounter Summary ---
Author Name Unknown Organization [place] Address [address] [facility] [place] [address] Care Team Providers Care Production Assembly Operator Name Role Phone Sánchez Kowalski APRN VENDOR REPRESENTATIVES Unavailable Marlen Esposito MD Unavailable Patricia Willoughby RD Unavailable Unavail able Karen Steel Unavailable [phone] Marlen Esposito MD Unavailable [phone] Karen Steel Unavailable Sánchez Kowalski APRN VENDOR REPRESENTATIVES Unavailable [phone] Unavailable Unavail able Ryan Cole MD Primary Care Provider [phone] Marlen Esposito MD Unavailable [phone] Encounter Details Date Type Department Care Team (Latest Contact Info) Description 06/24/2023 Medical Correspondence [facility] [address] [place] [address] Outside, Provider TO WHOM IT [...] Description 10/06/2023 4:00 PM CDT Office Visit [facility] [address] [place] [address] Barbara Valdes MD 6 [facility] 2A [place], [place] [address] documented as of this encounter Visit Diagnoses Not on filedocumented in this encounter Care Teams Production Assembly Operator Relationship Specialty Start Date End Date Ryan Cole MD [address] [place] [address] PCP - General 06/02/23 Sánchez Kowalski, RADIOLOGY AIDE VENDOR REPRESENTATIVES [address] [place] [address] 024925 Nurse Practitioner Nephrology 04/11/23 Marlen Esposito MD [address] [place] [address] 18295 Surgery 04/11/[address] [place] [address] Registered Dietitian Dietitian, Registered 04/11/23 Karen Steel LICSW Twine Reeling Machine Operator 04/11/23 Marlen Esposito MD [address] [place] [address] 43665 Surgery 05/21/23 Karen Steel LICSW Twine Reeling Machine Operator 05/21/23 Sánchez Kowalski APRN VENDOR REPRESENTATIVES [address] [place] [address] 915975 Nurse Practitioner Nephrology 05/21/[address] [place] [address] Registered Dietitian Dietitian, Registered 05/21/23 Marlen Esposito MD [address] [place] [address] [id number] Assigned Surgical Provider 06/21/23 documented as of this encounter
--- OUTSIDE RECORDS SUMMARY | 2023-09-27 07:21 | XMS_ITS | Encounter Summary ---
Author Name Unknown Organization [place] Address [address] [place] [address]. [place] [address] Care Team Providers Care Railway Signalling Engineer Name Role Phone Sánchez Kowalski APRN SCREEDMAN Unavailable [phone] Marlen Esposito MD Unavailable [phone] Unavailable Unavail able Karen Steel Unavailable [phone] Marlen Esposito MD Unavailable [phone] Karen Steel Unavailable [phone] Sánchez Kowalski APRN SCREEDMAN Unavailable [phone] Unavailable Unavail able Ryan Cole MD Primary Care Provider [phone] Marlen Esposito MD Unavailable [phone] Encounter Details Date Type Department Care Team (Late st Contact Info) Description 06/20/2023 [facility] Medical Advice [facility] [address] [place] [address] Linnea Graff RN Social History [...] 10/06/2023 4:00 PM CDT Office Visit [facility] [address] [place] [address] Barbara Valdes MD [address] [place] [address] [place] [address] documented as of this encounter Visit Diagnoses Not on filedocumented in this encounter Care Teams Railway Signalling Engineer Relationship Specialty Start Date End Date Ryan Cole MD [address] [place] [address] PCP - General 06/02/23 Sánchez Kowalski APRN SCREEDMAN [address] [place] [address]1691 Nurse Practitioner Nephrology 04/11/23 Marlen Esposito MD [address] [place] [address] 81192 Surgery 04/11/[address] [place] [address] Registered Dietitian Dietitian, Registered 04/11/23 Karen Steel, [facility] Mold Yard Supervisor 04/11/23 Marlen Esposito MD [address] [place] [address] 85780 Surgery 05/21/23 Karen Steel FOUNDRY WORKER GENERAL Mold Yard Supervisor 05/21/23 Sánchez Kowalski APRN SCREEDMAN [address] [place] [address] 206545 Nurse Practitioner Nephrology 05/21/[address] [place] [address] Registered Dietitian Dietitian, Registered 05/21/23 Marlen Esposito MD [address] [place] [address] 83248 Assigned Surgical Provider 06/21/23 documented as of this encounter
--- OUTSIDE RECORDS SUMMARY | 2023-09-27 07:21 | XMS_ITS | Encounter Summary ---
Author Name Unknown Organization [place] Address [address] [place] [address]. [place] [address] Care Team Providers Care Radiation Control Technician Name Role Phone Sánchez Kowalski APRN ANIMAL SCIENCE INSTRUCTOR Unavailable Marlen Esposito MD Unavailable [phone] Unavailable Unavail able Karen Steel Unavailable [phone] Marlen Esposito MD Unavailable [phone] Karen Steel Unavailable [phone] Sánchez Kwoalski APRN ANIMAL SCIENCE INSTRUCTOR Unavailable [phone] Unavailable Unavail able Ryan Cole MD Primary Care Provider Marlen Esposito MD Unavailable [phone] Encounter Details Date Type Department Care Team (Late st Contact Info) Description 07/21/2023 [facility] Medical Advice [facility] [address] [place] [address] Linnea Graff RN Social History [...] 10/06/2023 4:00 PM CDT Office Visit [facility] [address] [place] [address] Barbara Valdes MD [address] [place] [address] [place] [address] documented as of this encounter Visit Diagnoses Not on filedocumented in this encounter Care Teams Radiation Control Technician Relationship Specialty Start Date End Date Ryan Cole MD [address] [place] [address] PCP - General 06/02/23 Sánchez Kowalski APRN ANIMAL SCIENCE INSTRUCTOR [address] [place] [address] 79808 Nurse Practitioner Nephrology 04/11/23 Marlen Esposito MD [address] [place] [address] 59524 Surgery 04/11/[address] [place] [address] Registered Dietitian Dietitian, Registered 04/11/23 Karen Steel, [facility] Meat Inspector 04/11/23 Marlen Esposito MD [address] [place] [address] 80057 Surgery 05/21/23 Karen Steel PRINT WASHER Meat Inspector 05/21/23 Sánchez Kowalski APRN ANIMAL SCIENCE INSTRUCTOR [address] [place] [address] 541685 Nurse Practitioner Nephrology 05/21/[address] [place] [address] Registered Dietitian Dietitian, Registered 05/21/23 Marlen Esposito MD [address] [place] [address] 62617 Assigned Surgical Provider 06/21/23 documented as of this encounter
--- OUTSIDE RECORDS SUMMARY | 2023-09-27 07:21 | XMS_ITS | Encounter Summary ---
Author Name Unknown Organization [place] Address [address] [place] [address]. [place] [address] Care Team Providers Care Aeroplane Pilot Name Role Phone Sánchez Kowalski APRN SPINNING MULE OPERATOR Unavailable Marlen Esposito MD Unavailable [phone] Unavailable Unavail able Karen Steel Unavailable Marlen Esposito MD Unavailable Karen Steel Unavailable Sánchez Kowalski APRN SPINNING MULE OPERATOR Unavailable [phone] Unavailable Unavail able Ryan Cole MD Primary Care Provider Marlen Esposito MD Unavailable [phone] Encounter Details Date Type Department Care Team (Late st Contact Info) Description 06/13/2023 Documentation Only [facility] [address] [place] [address] Scan, Non-Provider Social History Tobacco [...] Description 10/06/2023 4:00 PM CDT Office Visit [facility] [address] [place] [address] Barbara Valdes MD [address] [place] [address] documented as of this encounter Visit Diagnoses Not on filedocumented in this encounter Care Teams Aeroplane Pilot Relationship Specialty Start Date End Date Ryan Cole MD [address] [place] [address] PCP - General 06/02/23 Sánchez Kowalski APRN SPINNING MULE OPERATOR [address] [place] [address]257 Nurse Practitioner Nephrology 04/11/23 Marlen Esposito MD [address] [place] [address] 90639 Surgery 04/11/[address] [place] [address] Registered Dietitian Dietitian, Registered 04/11/23 Karen Steel, OUTSOLE MOLDER Mechanical Equipment Test Engineer 04/11/23 Marlen Esposito MD [address] [place] [address] 99372 Surgery 05/21/23 Karen Steel OUTSOLE MOLDER Mechanical Equipment Test Engineer 05/21/23 Sánchez Kowalski APRN SPINNING MULE OPERATOR [address] [place] [address] 931955 Nurse Practitioner Nephrology 05/21/[address] [place] [address] Registered Dietitian Dietitian, Registered 05/21/23 Marlen Esposito MD 9 [place] [address] Assigned Surgical Provider 06/21/23 documented as of this encounter
--- OUTSIDE RECORDS SUMMARY | 2023-09-27 07:21 | XMS_ITS | Encounter Summary ---
Author Name Unknown Organization [place] Address [address] [place] [address]. [place] [address] Care Team Providers Care Aircraft Maintenance Supervisor Name Role Phone Sánchez Kowalski APRN CLIENT SUPPORT COORDINATOR Unavailable [phone] Marlen Esposito MD Unavailable [phone] Unavailable Unavail able Karen Steel Unavailable [phone] Marlen Esposito MD Unavailable [phone] Karen Steel Unavailable [phone] Sánchez Kowalski APRN CLIENT SUPPORT COORDINATOR Unavailable [phone] Unavailable Unavail able Ryan Cole MD Primary Care Provider [phone] Marlen Esposito MD Unavailable [phone] Encounter Details Date Type Department Care Team (Late st Contact Info) Description 07/27/2023 [facility] Medical Advice [facility] [address] [place] [address] Linnea Graff RN Social History [...] Description 10/06/2023 4:00 PM CDT Office Visit [facility] [address] [place] [address] Barbara Valdes MD [address] [place] [address] [place] [address] documented as of this encounter Visit Diagnoses Not on filedocumented in this encounter Care Teams Aircraft Maintenance Supervisor Relationship Specialty Start Date End Date Ryan Cole MD [address] [place] [address] PCP - General 06/02/23 Sánchez Kowalski APRN CLIENT SUPPORT COORDINATOR [address] [place] [address]4483 Nurse Practitioner Nephrology 04/11/23 Marlen Esposito MD [address] [place] [address] 25199 Surgery 04/11/[address] [place] [address] Registered Dietitian Dietitian, Registered 04/11/23 Karen Steel, [facility] 4Th Grade Math Teacher 04/11/23 Marlen Esposito MD [address] [place] [address] 19556 Surgery 05/21/23 Karen Steel FINANCIAL SOLUTIONS ADVISOR 4Th Grade Math Teacher 05/21/23 Sánchez Kowalski APRN CLIENT SUPPORT COORDINATOR [address] [place] [address] 777465 Nurse Practitioner Nephrology 05/21/[address] [place] [address] Registered Dietitian Dietitian, Registered 05/21/23 Marlen Esposito MD [address] [place] [address] 46645 Assigned Surgical Provider 06/21/23 documented as of this encounter
--- OUTSIDE RECORDS SUMMARY | 2023-09-27 07:21 | XMS_ITS | Encounter Summary ---
Author Name Unknown Organization [place] Address [address] [place] [address]. [place] [address] Care Team Providers Care Cloth Mercerizer Operator Name Role Phone Sánchez Kowalski APRN SLIP MIXER Unavailable Marlen Esposito MD Unavailable Patricia Willoughby RD Unavailable Unavail able Karen Steel Unavailable Marlen Esposito MD Unavailable Karen Steel Unavailable Sánchez Kowalski APRN SLIP MIXER Unavailable [phone] Unavailable Unavail able Ryan Cole MD Primary Care Provider Marlen Esposito MD Unavailable [phone] Reason for Visit * Reason Onset Date Comments Transplant Recipient Evaluation 07/21/2023 Encounter Details Date Type Department Care Team (Late st Contact Info) Description 07/21/2023 Telephone [facility] [address] [place] [address] Linnea Graff cardiopulmonary technician and eeg tech Recipient Evaluation Social History Tobacco Use Types [...] 08, 2023 and I need to call [facility] to see if he has wait time prior to starting dialysis. Instructed pt to continue his regular care with all of his providers at [facility]. Explained I willsend him a letter today in My Chart reflecting this and to let me know of any questions or concerns. Generated Transplant Evaluation Summary Letter today in [facility] - electronically sent to patient/ providers. ICAL RESEARCH NURSE COORDINATOR documented in this encounter Plan of Treatment Upcoming Encounters Date Type Department Care Team (Late st Contact Info) Description 10/06/2023 4:00 PM CDT Office Visit [facility] [address] [place] [address] Barbara Valdes MD [address] [place] [address] [place] [address] [phone] documented as of this encounter Visit Diagnoses Not on filedocumented in this encounter Care Teams Cloth Mercerizer Operator Relationship Specialty Start Date End Date Ryan Cole MD [address] [place] [address] PCP - General 06/02/23 Sánchez Kowalski APRN SLIP MIXER [address] [place] [address] 157945 Nurse Practitioner Nephrology 04/11/23 Marlen Esposito MD [address] [place] [address] 11565 Surgery 04/11/[address] [address] Registered Dietitian Dietitian, Registered 04/11/23 Karen Steel, [facility] Automobile Taillight Assembler 04/11/23 Marlen Esposito MD [address] [place] [address] 60926 Surgery 05/21/23 Kraen Steel, [facility] Automobile Taillight Assembler 05/21/23 Sánchez Kowalski APRN SLIP MIXER [address] [place] [address] 16463 Nurse Practitioner Nephrology 05/21/[address] [address] Registered Dietitian Sravanthian, Registered 05/21/23 Marlen Esposito MD [address] [place] [address] Assigned Surgical Provider 06/21/23 documented as of this encounter
--- OUTSIDE RECORDS SUMMARY | 2023-09-27 07:21 | XMS_ITS | Encounter Summary ---
Author Name Unknown Organization [place] Address [address] [place] [address]. [place] [address] Care Team Providers Care Supervisor Cloth Winding Name Role Phone Sánchez Kowalski APRN DATABASE MARKETING MANAGER Unavailable Marlen Esposito MD Unavailable [phone] Unavailable Unavail able Karen Steel Unavailable [phone] Marlen Esposito MD Unavailable [phone] Karen Steel Unavailable [phone] Sánchez Kowalski APRN DATABASE MARKETING MANAGER Unavailable [phone] Unavailable Unavail able Ryan Cole MD Primary Care Provider [phone] Marlen Esposito MD Unavailable [phone] Encounter Details Date Type Department Care Team (Late st Contact Info) Description 08/13/2023 [facility] Medical Advice [facility] [address] [place] [address] Linnea Graff RN Social History [...] Description 10/06/2023 4:00 PM CDT Office Visit [facility] [address] [place] [address] Barbara Valdes MD [address] [place] [address] [place] [address] documented as of this encounter Visit Diagnoses Not on filedocumented in this encounter Care Teams Supervisor Cloth Winding Relationship Specialty Start Date End Date Ryan Cole MD [address] [place] [address] PCP - General 06/02/23 Sánchez Kowalski APRN DATABASE MARKETING MANAGER [address] [place] [address]11 Nurse Practitioner Nephrology 04/11/23 Marlen Esposito MD [address] [place] [address] 62213 Surgery 04/11/[address] [place] [address] Registered Dietitian Dietitian, Registered 04/11/23 Karen Steel, [facility] Software Database Architect 04/11/23 Marlen Esposito MD [address] [place] [address] 97545 Surgery 05/21/23 Karen Steel ORDER WORKER Software Database Architect 05/21/23 Sánchez Kowalski APRN DATABASE MARKETING MANAGER [address] [place] [address] 487205 Nurse Practitioner Nephrology 05/21/[address] [place] [address] Registered Dietitian Dietitian, Registered 05/21/23 Marlen Esposito MD [address] [place] [address]79 Assigned Surgical Provider 06/21/23 documented as of this encounter
--- OUTSIDE RECORDS SUMMARY | 2023-09-27 07:21 | XMS_ITS | Encounter Summary ---
Author Name Unknown Organization [place] Address [address] [place] [address]. [place] [address] Care Team Providers Care Filament Shaper Name Role Phone Sánchez Kowlaski APRN GUIDANCE ADVISER Unavailable Marlen Esposito MD Unavailable [phone] Unavailable Unavail able Karen Steel Unavailable [phone] Marlen Esposito MD Unavailable [phone] Karen Steel Unavailable Sánchez Kowalski APRN GUIDANCE ADVISER Unavailable [phone] Unavailable Unavail able Ryan Cole MD Primary Care Provider [phone] Marlen Esposito MD Unavailable [phone] Encounter Details Date Type Department Care Team (Late st Contact Info) Description 06/05/2023 Orders Only [facility] [address] [place] [address] Outside, Provider Social History Tobacco Use Types [...] Visit [facility] [address] [place] [address] Barbara Valdes MD 6 [facility] 2A [place], [place] 6[address] documented as of this encounter Procedures Procedure Name Priority Date/Time Associated Diagnosis Comments HLA RESULT REPORT 06/05/2023 2:18 PM TECHNICAL OPERATOR HLA RESULT REPORT 06/05/2023 2:18 PM TECHNICAL OPERATOR documented in this encounter Results * HLA RESULT REPORT (06/05/2023 2:18 PM TECHNICAL OPERATOR) Provider Outside LAB - IMMUNOLOGY ORD ERABLES * HLA RESULT REPORT (06/05/2023 2:18 PM TECHNICAL OPERATOR) Provider Outside LAB - IMMUNOLOGY ORD ERABLES documented in this encounter Visit Diagnoses Not on filedocumented in this encounter Care Teams Filament Shaper Relationship Specialty Start Date End Date Ryan Cole MD [address] [place] [address] PCP - General 06/02/23 Sánchez Kowalski, [employer] OPERATOR GUIDANCE ADVISER [address] [place] [address] 105495 Nurse Practitioner Nephrology 04/11/23 Marlen Esposito MD [address] [place] [address] 359005 Surgery 04/11/[address] [place] [address] Registered Dietitian Dietitian, Registered 04/11/23 Karen Steel, [facility] Management Accountant 04/11/23 Marlen Esposito MD [address] [place] [address] 82470 Surgery 05/21/23 Karen Steel, [facility] Management Accountant 05/21/23 Sánchez Kowalski APRN GUIDANCE ADVISER [address] [place] [address] 95429 Nurse Practitioner Nephrology 05/21/[address] [place] [address] Registered Dietitian Dietitian, Registered 05/21/23 Marlen Esposito MD [address] [place] [address] 95389 Assigned Surgical Provider 06/21/23 documented as of this encounter
--- OUTSIDE RECORDS SUMMARY | 2023-09-27 07:23 | XMS_ITS | Continuity of Care Document ---
Author Name Unknown Organization [facility] Address [address] [address] [place] [address] Phone Care Team Providers Care Geothermal Powerplant Mechanic Helper Name Role Phone Dakotah Sherwood MD Unavailable Unavailable Advance Directives Directive Yes / No Effective Date File Name No Information Encounters Encounter Description Practice Location Reason(s) For Visit Diagnoses Date Provider Providers Copied on Encounter [facility], [address] [address], [place], [place], [id number], [place] tel:[phone] [facility] No Information Kaela Claire. [address] [facility] [address], [place], [place], [id number] , [place]. tel:[phone] Family History Family Member Type Diagnosis Age [...]
--- OUTSIDE RECORDS SUMMARY | 2023-09-27 07:23 | XMS_ITS | Clinical Summary ---
Author Name Unknown Organization [employer] [facility] [employer] Address [place], [place] [address] Care Team Providers Care Supervisor Cold Rolling Name Role Phone Ryan Cole MD Primary Care Provider [phone]- [phone] Allergies Active Allergy Reactions Criticality Noted Date [...] Department Care Team Description 09/19/2023 Orders Only [facility] Scanner 1 scan: ([facility]-Ord[facility], 09/19/2023 09/14/2023 Orders Only [facility] Scanner 1 scan: (1-Ord) [place], CT ABD PELVIS W/O CON, 09/14/2023 08/15/2023 10:30 AM POLICE INSPECTOR Orders Only [facility] [address] [place] [address] Lab, [place] [facility] 08/15/2023 Travel 08/11/2023 Refill [facility] [address] [place] [address] Ryan Cole MD Refill Request (Levothyroxine) 08/08/2023 Refill [facility] [address] [place] [address] Ryan Cole MD Refill Request (Levothyroxine) 06/30/2023 Refill [facility] [address] [place] [address] Ryan Cole MD Refill Request (Amoxicillin) from [...] T Respiratory Rate 24 05/24/2021 11:02 AM POLICE INSPECTOR Oxygen Saturation 100% 04/15/2023 11:57 AM CDT Inhaled Oxygen Concentration - - Weight 78.1 kg (172 lb 1.6 oz) 04/15/2023 11:57 AM CDT Height 175.3 cm (5' 9.02) 05/24/2021 11:[address] Body Mass Index 25.4 05/24/2021 11:02 AM POLICE INSPECTOR Plan of Treatment Health Maintenance Due Date [...] DIFFICILE TOXIN PCR Routine 08/15/2023 10:30 AM POLICE INSPECTOR Acute diarrhea OCCULT BLOOD IFOBT STOOL Routine 05/01/2021 11:40 AM POLICE INSPECTOR Screening for colorectal cancer ANTI HCV Add [...] CLOSTRIDIOIDES DIFFICILE TOXIN PCR (08/15/2023 10:30 AM POLICE INSPECTOR) CLOSTRIDIUM DIFFICILE PCR Negative 08/15/2023 11:55 PM POLICE INSPECTOR [facility] PRESUMPTIVE NAP1 STRAIN Negative 08/15/2023 11:55 PM POLICE INSPECTOR [facility] Stool STOOL SPECIMEN / Unknown Non-Blood / Unknown 08/15/2023 10:30 AM POLICE INSPECTOR 08/15/2023 12:32 PM POLICE INSPECTOR Narrative [facility] - 08/15/2023 11:55 PM POLICE INSPECTOR The NAP1 (027 or BI) strain is a hypervirulent strain. Detection may be useful for epidemiological purposes. Ryan Cole MD MICROBIOLOGY Performing Organization Address City/[facility]/ZIP Co de Phone Number [facility] [address] [place] [address], [place] * (ABNORMAL) OCCULT BLOOD IFOBT STOOL (05/01/2021 11:40 AM POLICE INSPECTOR) STOOL BLOOD ,IFOBT Positive(A ) Negative 05/11/2021 2:47 PM POLICE INSPECTOR [facility] Stool STOOL SPECIMEN / Unknown Non-Blood / Unknown 05/01/2021 11:40 AM POLICE INSPECTOR 05/09/2021 11:40 AM POLICE INSPECTOR Ryan Cole MD LABORATORY Performing Organization Address City/[facility]/ZIP Co de Phone Number [facility] [address] [place] [address], [place] [phone] * (ABNORMAL) LIPID PANEL W REFLEX MEASURED LDL [[id number]] (04/26/2021 10:01 AM CDT) CHOLESTEROL,TOTAL 120 100 - 199 mg/dL 04/26/2021 6:06 PM CDT [facility] TRIGLYCERIDES 170(H) <150 mg/dL 04/26/2021 6:06 PM CDT [facility] HDL CHOLESTEROL 32(L) >40 mg/dL 6:06 PM CDT [facility] NON-HDL CHOLESTEROL 88 <145 mg/dl 04/26/2021 6:06 PM CDT [facility] CHOL/HDL RATIO 3.75 <4.50 04/26/2021 6:06 PM CDT [facility] LDL CHOLESTEROL 54 <=130 mg/dL 04/26/2021 6:06 PM CDT [facility] VLDL CHOLESTEROL 34(H) <=30 mg/dL 04/26/2021 6:06 PM CDT [facility] PROVIDER ORDERED STATUS RANDOM 04/26/2021 6:06 PM CDT [facility] Blood BLOOD SPECIMEN / Unknown Venipuncture / Unknown 04/26/2021 10:01 AM CDT 04/26/2021 10:01 AM CDT Ryan Cole MD CHEMISTRY [facility] [address] [place] [address], * ANTI HCV (04/26/2021 10:01 AM CDT) HEPATITIS C ANTIBODY Non-React davin Non-React davin 04/26/2021 6:19 PM CDT [facility] Comment:Antibodies to HCV no t detected; does not exclude the possibility of exposure to HCV. Blood BLOOD SPECIMEN / Unknown Venipuncture / Unknown 04/26/2021 10:01 AM CDT 04/26/2021 10:01 AM CDT Ryan Cole MD SEND OUTS [facility] [address] [place] [address], from Last 3 Months or Most Recently Relevant to Health Maintenance Advance Directives * Full Code (Latest Code Status on File) Date Activated Date Inactivated Comments 04/30/2021 5:43 AM 04/30/2021 10:06 AM Question Answer Comments Code Status Discussion: Reviewed Preferences Care Teams Supervisor Cold Rolling Relationship Specialty Start Date End Date Ryan Cole MD [address] [place] [address] PCP - General Family Practice 07/11/14
== END 2023-09-27 07:24 | disposition home or self-care (01) ==
LOC: ED 07:18
PROVIDERS: Emergency Provider Family Medicine; PCP Surgery
DX: R14.0 Abdominal distension (gaseous) (principal); K66.1 Hemoperitoneum
CPT/HCPCS: 99282; 99283

== ENCOUNTER 2023-11-10 17:04 | Emergency (ER) | payer MEDICARE, BC, SELFPAY ==
[2023-11-10] VITALS (15 sets, daily range): BP systolic 106–198; BP diastolic 71–103; PULSE 81–114; RESP 22–34; TEMP 37.2–39.9; O2SAT 92–100; BMI 25.1
--- NOTE | 2023-11-10 17:44 | ED_ITS ---
HPI - Abdominal Pain General Time Seen by Provider: 17:44 Date Seen: 11/10/23 Chief Complaint: Flank Pain Stated Complaint: Sharp L side pain post dialysis Time Seen by Provider: 11/10/23 17:44 Source: patient, RN notes reviewed and old records reviewed Mode of arrival: ambulatory Limitations: no limitations History of Present Illness HPI narrative: Patient is a 68-year-old male with a history of liver transplant, kidney failure currently on dialysis, recent history of a retroperitoneal hematoma who comes to the [facility] with sudden onset of left flank pain. Patient notes that he had been at dialysis and had some discomfort in his left flank and left lateral rib area that he really only noticed if he was moving back and forth. However over the past hour it is accelerated and now he has acute discomfort just sitting. In fact his pain is so significant that he is moaning quite a bit and apologizing to everyone for being so loud. He has not experienced this type of pain before. He still makes some urine and has not noticed any pain or blood. He is not currently on a blood thinner. Patient thought that at 1st this may be related to coughing. States he has had a cough for approximately 3 weeks after riding his motorcycle in the rain. He does not really cough anything up. He is not having fever with this. Movement increases his discomfort and yet sitting still does not really help his pain. He has not taken anything for pain at this point. Related Data Home Medications Medication Instructions Recorded Confirmed albuterol sulfate 90 mcg/actuation 2 puff inhalation Q6H PRN 03/29/22 09/27/23 aerosol inhaler aspirin 81 mg tablet,delayed 81 mg PO QDAY 03/29/22 09/27/23 release (Adult Low Dose Aspirin) atorvastatin 10 mg tablet 10 mg PO QDAY 03/29/22 09/27/23 azelastine 137 mcg (0.1 %) nasal 1 spray intranasal BID 03/29/22 09/27/23 spray aerosol budesonide 0.25 mg/2 mL suspension 0.5 mg inhalation QDAY 03/29/22 09/27/23 for nebulization (Pulmicort) coenzyme Q10 100 mg capsule 100 mg PO QDAY 03/29/22 09/27/23 fluticasone fur. 200 mcg-umeclid 1 inh inhalation QDAY 03/29/22 09/27/23 62.5 mcg-vilant 25 mcg inhalat.powder (Trelegy Ellipta) ipratropium bromide 21 mcg (0.03 2 spray intranasal BID 03/29/22 09/27/23 %) nasal spray lamotrigine 200 mg tablet 200 mg PO BID 03/29/22 09/27/23 (Lamictal) levothyroxine 25 mcg capsule 25 mcg PO QDAY 03/29/22 09/27/23 loratadine 10 mg tablet 10 mg PO QDAY 03/29/22 09/27/23 montelukast 10 mg tablet 10 mg PO QDAY 03/29/22 09/27/23 (Singulair) mycophenolate mofetil 500 mg 500 mg PO Q12H 03/29/22 09/27/23 tablet (CellCept) nifedipine 30 mg tablet,extended 30 mg PO QDAY 03/29/22 09/27/23 release 24 hr (Procardia XL) prednisone 5 mg tablet 5 mg PO QDAY 03/29/22 09/27/23 tacrolimus 0.5 mg capsule, 1.5 mg PO Q12H 03/29/22 09/27/23 immediate-release (Prograf) torsemide 10 mg tablet 10 mg PO QAM 03/29/22 09/27/23 trazodone 100 mg tablet 100 mg PO QDAY 03/29/22 09/27/23 voriconazole 200 mg tablet (Vfend) 200 mg PO Q12H 03/29/22 09/27/23 Previous Rx's Medication Instructions Recorded gabapentin 100 mg capsule See Rx Instructions .Route 02/14/23 .COMPLEX #20 caps Allergies Allergy/AdvReac Type Severity Reaction Status Date / Time cefixime Allergy Intermediate Diarrhea Verified 11/10/23 17:12 quetiapine Allergy Intermediate Edema Verified 11/10/23 17:12 ciprofloxacin Allergy Unknown Verified 11/10/23 17:12 citalopram Allergy Unknown Verified 11/10/23 17:12 Review of Systems Status of ROS Reports: 10 or more systems reviewed and unremarkable except as noted in History and below Const Denies: fever or chills Eyes Denies: change in vision ENMT Denies: throat pain or neck pain Cardio Denies: chest pain, palpitations, edema or shortness of breath with exertion Resp Reports: cough; Denies: shortness of breath or wheezing GI Reports: nausea; Denies: abdominal pain, vomiting or diarrhea Denies: painful urination Musculo Reports: back pain (Left flank); Denies: neck pain Integ/Breast Denies: rash Allergy/Immuno Denies: wheezing PFSH [facility] Social History Smoking Status: Former smoker Do you use any of these nicotine containing products: None Second hand tobacco smoke exposure: No How often do you have a drink containing alcohol: never How often do you have six or more drinks on one occasion: Never AUDIT-C Alcohol total score: 0 Non-prescribed substance use: denies use Exam Narrative: Exam Narrative: Patient is alert, oriented. He is actively and loudly groaning, but in discussion he is able to talk and offer complete sentences when he is telling me his history. His skin is rather dark in color and he does have areas of bruising. He is otherwise mentating normally. Heart is with a regular rate and rhythm. Lungs are with decreased breath sounds in the bases. Palpation over the left flank or ribcage does not yield tenderness. Abdomen is protrude her in and firm but there is no tenderness with palpation. Lower extremities without edema. He is moving all extremities. Const: Vital Signs, click to edit/add: Vital Signs - 24 hr 11/10/23 17:09 11/10/23 18:03 11/10/23 18:04 Temperature 99 F Pulse Rate 81 82 Pulse Rate [Right Pulse Oximeter] 85 Respiratory Rate 34 H Blood Pressure 106/80 Blood Pressure [Le ft Upper Arm] 164/97 H Pulse Oximetry 99 100 98 Oxygen Delivery Me thod Room Air Oxygen Flow Rate 11/10/23 18:20 11/10/23 18:30 11/10/23 18:31 Temperature Pulse Rate 114 H 96 89 Pulse Rate [Right Pulse Oximeter] Respiratory Rate Blood Pressure 198/101 H Blood Pressure [Le ft Upper Arm] Pulse Oximetry 94 96 96 Oxygen Delivery Me thod Oxygen Flow Rate 11/10/23 18:45 11/10/23 18:49 11/10/23 18:50 Temperature 102.8 F H Pulse Rate 98 99 Pulse Rate [Right Pulse Oximeter] Respiratory Rate Blood Pressure 157/103 H Blood Pressure [Le ft Upper Arm] Pulse Oximetry 92 97 Oxygen Delivery Me thod Oxygen Flow Rate 11/10/23 19:00 11/10/23 19:01 11/10/23 19:13 Temperature 103.4 F H Pulse Rate 97 98 Pulse Rate [Right Pulse Oximeter] 96 Respiratory Rate 22 Blood Pressure 196/99 H Blood Pressure [Le ft Upper Arm] 196/99 H Pulse Oximetry 92 93 97 Oxygen Delivery Me thod Room Air Oxygen Flow Rate 11/10/23 19:30 11/10/23 21:55 11/10/23 23:55 Temperature 103.8 F H 101.5 F H 100.7 F H Pulse Rate Pulse Rate [Right Pulse Oximeter] 85 92 Respiratory Rate 24 26 H Blood Pressure Blood Pressure [Le ft Upper Arm] 155/71 H 179/94 H Pulse Oximetry 96 97 Oxygen Delivery Me thod Room Air OxyMask Oxygen Flow Rate 5 Documenting provider has reviewed patient's vital signs: yes Course Course ED Course: Differential diagnosis includes but is not limited to pyelonephritis, kidney stone, broken ribs, hematoma, dissection, bowel obstruction. IV has been placed I have ordered Dilaudid and Zofran for discomfort and nausea control. Will hold off on fluids as he is a dialysis patient. Checking labs to include CBC, comprehensive panel, INR,Urinalysis as well as chest abdomen pelvis CT without contrast. This gentleman does have the ability to make some urine and I do not want to compromise any remaining kidney function with the use of contrast at this time. Reevaluation(s) Reevaluation #1: Patient has had significant relief of his pain with Dilaudid. However, nursing now informs me that he has a temp up to 102.8 with shaking. [place] an additional dose of Dilaudid which she declined. He is receptive to Tylenol 1 g p.o. as well as blood cultures. Plan on antibiotics but I would like to talk to [address] CTs suggesting that he still has persistent hematoma surrounding left kidney. Questionable infected hematoma. He still does make urine and we are attempting to get a urine sample. Obviously very cautious with fluids. Lactate is reassuring at 1.3. I did speak with the patient about the use of IV contrast. I was honest and that telling him that this could harm the kidneys but I think that the risk of not finding bleeding, abscess or other cause of his pain outweighs this risk. Patient had been given 2nd dose of Dilaudid as pain had returned and he is feeling better at this time. He agrees to go through with the CT. Reevaluation #2: Unfortunately patient has had increasing pain and Dilaudid only were briefly. We have switched over to fentanyl 50 mcg and seems to be working better. [place] t will be coming back from CT with contrast. Did discuss the use of contrast as previously noted. Did discuss this also with Radiology. Unfortunately, there is no evidence of contrast noted on the abdomen and pelvic CT. There is a new left lower lobe infiltrate that has now appeared verses 7 hours ago. Investigating why the contrast was not given. Will repeat chest abdomen and pelvis with contrast per [place] physician request. Reevaluation #3: I did receive initial acceptance from our tele physician but floor declined transfer given the fact that patient will need dialysis in approximately 30 hours. Both [place] and [place] on divert. Was able to contact [facility] which accepts this patient in transfer. Consultations Consultation #1: I had the pleasure of speaking with Dr. Page, medical biller/coder of the day at [facility]. Right now they are on divert. He was able to review lab values and requests a CRP. He also requests CT angiogram of the abdomen which unfortunately after checking with radiology we are unable to do here. He did state that he would accept a CT with IV contrast if we were unable to do the angiogram which I will speak to the patient about. At this time [place] is informed of the antibiotics we are using, inability to do dialysis here. Subsequent phone call after return of abdominal CT with contrast. [place] still on divert at this time. Be MO D feels that patient could stay here and possibly checked for subsequent transfer tomorrow. Vital Signs Vital signs: Initial Vital Signs Temperature 99 F 11/10/23 17:09 Temperature Source Temporal Artery Scan 11/10/23 17:09 Pulse Rate 85 11/10/23 17:09 Pulse Rhythm Regular 11/10/23 17:09 Pulse Strength 3+ Normal 11/10/23 17:09 Respiratory Rate 34 H 11/10/23 17:09 Blood Pressure 164/97 H 11/10/23 17:09 Blood Pressure Mean 119 H 11/10/23 17:09 Blood Pressure Position Sitting 11/10/23 17:09 Pulse Oximetry 99 11/10/23 17:09 Oxygen Delivery Method Room Air 11/10/23 17:09 Vital Signs Temperature 99 F 11/10/23 17:09 Pulse Rate 85 11/10/23 17:09 Respiratory Rate 34 H 11/10/23 17:09 Blood Pressure 164/97 H 11/10/23 17:09 Pulse Oximetry 99 11/10/23 17:09 Oxygen Delivery Method Room Air 11/10/23 17:09 Temperature 100.7 F H 11/10/23 23:55 Pulse Rate 92 11/10/23 23:55 Respiratory Rate 26 H 11/10/23 23:55 Blood Pressure 179/94 H 11/10/23 23:55 Pulse Oximetry 97 11/10/23 23:55 Oxygen Delivery Method OxyMask 11/10/23 23:55 Oxygen Flow Rate 5 11/10/23 23:55 Medications Administered Medications: Discontinued Medications Generic Name Dose Route Start Last Admin Trade Name Freq PRN Reason Stop Dose Admin Acetaminophen 1,000 mg 11/10/23 20:04 11/10/23 19:30 Acetaminophen 500 Mg Tablet PO 11/10/23 20:05 1,000 mg ONCE ONE Administration Fentanyl 50 mcg 11/11/23 00:06 11/11/23 01:00 Fentanyl 100 Mcg/2 Ml Inj IVP 11/11/23 00:07 50 mcg ONCE ONE Administration Hydromorphone HCl 0.5 mg 11/10/23 17:50 11/10/23 18:03 Hydromorphone 0.5 Mg/0.5 Ml Inj IVP 11/10/23 17:51 0.5 mg ONCE ONE Administration Hydromorphone HCl 0.5 mg 11/10/23 22:44 11/10/23 22:47 Hydromorphone 0.5 Mg/0.5 Ml Inj IVP 11/10/23 22:45 0.5 mg ONCE ONE Administration Hydromorphone HCl 0.5 mg 11/10/23 23:45 11/10/23 23:55 Hydromorphone 0.5 Mg/0.5 Ml Inj IVP 11/10/23 23:46 0.5 mg ONCE ONE Administration Vancomycin HCl 1,500 mg/ 515 mls @ 257.5 mls/hr 11/10/23 20:42 11/10/23 22:49 Sodium Chloride IVPB 11/10/23 20:43 257.5 mls/hr ONCE ONE Administration Protocol Piperacillin Sod/Tazobactam 100 mls @ 200 mls/hr 11/10/23 20:42 11/10/23 21:55 Sod 3.375 gm/ Sodium Chloride IVPB 11/10/23 20:43 200 mls/hr ONCE ONE Administration Ondansetron HCl 4 mg 11/10/23 17:50 11/10/23 18:03 Ondansetron 2 Mg/Ml Inj IVP 11/10/23 17:51 4 mg ONCE ONE Administration MDM - Abdominal Pain MDM Narrative Medical decision making narrative: 1. Left flank pain-initially control with Dilaudid but have now switched to fentanyl. Much more comfortable. Etiology pneumonia versus is left brayan renal infection. A. Left lower lobe pneumonia-this was not initially seen on the 1st CT. However 7 hours later it is now noted on subsequent CTs. Patient is treated with Zosyn and vancomycin although this initial treatment was for what was suspected as possibly infected hematoma around the left kidneys. O2 sats reassuring but oxygen applied after narcotic pain medication. at this time and patient has tested negative for COVID/influenza/RSV. Patient notes cough for approximately 3 weeks although no cough noted in the ED. lactate 1.3, blood cultures pending. B. Left brayan renal stranding and hematoma-patient is status post coiling on the left after a spontaneous retroperitoneal hematoma this spring. Patient is status post coiling at [place]. Urine is without evidence of UTI. [place] physician requested CT be done with contrast. At this time there is a question of superimposed infection by Radiology. I have concerns that patient may need Interventional Radiology for possible drainage. Again, patient on Zosyn and vancomycin at this time. If blood culture is positive for gram-negative rods strongly suspect that there is a superimposed infection and Interventional Radiology may be needed. 2. History of liver transplant-on immunosuppressants. 3. Kidney failure-on dialysis. Creatinine 3.0. Patient does continue to make urine and urine does not show any evidence of UTI. Next dialysis day is 11/12/2023. No evidence of fluid overload at this time. 4. History of retroperitoneal bleed-unknown etiology according to notes from [facility]. Patient underwent coiling in August. Evidence of clot organization on CT. 5. Disposition- had requested transfer to [facility] but they are c urrently on divert. I am thankful for the assistance of the BIMAL Bashir at [facility]. Unfortunately we were also not able to admit patient here given potential dialysis need. Therefore contacted [facility] and they do not have availability. I was subsequently able to talk to Dr. Jaxson Turner of [facility] who accepts this patient in transfer. Patient is due for next dose of Zosyn. Patient will travel by ground ALS ambulance to [facility]. Addendum: Patient has a history of C diff. No evidence of diarrhea tonight. Medical Records Attestation: I reviewed the patient's medical records. Lab Data Attestation: I reviewed the patient's lab results. Labs: Lab Results 11/10/23 11/10/23 11/10/23 Range/Units 18:00 18:01 19:47 WBC 8.12 (4.50-11.00) K/uL RBC 4.20 L (4.30-5.90) m/uL Hgb 11.6 L (13.5-17.5) gm/dL Hct 37.0 (37.0-53.0) % MCV 88 (80-100) fL MCH 28 (26-34) pg MCHC 31 L (32-36) gm/dL RDW Coeff of Hilda 18.0 H (11.5-15.5) % Plt Count 293 (140-440) K/uL Neut % (Auto) 67.4 (42.0-72.0) % Lymph % (Auto) 19.6 L (20-44) % Borden % (Auto) 11.1 H (0.0-11.0) % Eos % (Auto) 1.5 (0.0-7.0) % Baso % (Auto) 0.2 (0.0-3.0) % Neut # (Auto) 5.47 (1.7-7.0) K/uL Lymph # (Auto) 1.60 (0.90-2.90) K/uL Borden # (Auto) 0.90 (0.00-0.90) K/UL Eos # (Auto) 0.12 (0.00-0.50) K/uL Baso # (Auto) 0.02 (0.00-0.30) K/uL Abs Immat Gran (auto) 0.02 (0.00-0.30) K/uL Imm/Tot Granulo (auto) 0.2 % INR 0.85 L (0.91-1.10) Sodium 134 L (135-149) mmol/L Potassium 4.1 (3.6-5.1) mmol/L Chloride 93 L (96-114) mmol/L Carbon Dioxide 24 (20-32) mmol/L Anion Gap 17 H (7-15) mEq/L BUN 33 H (7-30) mg/dL Creatinine 3.0 H (0.5-1.5) mg/dL Estimated Creat Clear 23.24 Estimated GFR 22 ml/min Glucose 120 H (60-115) mg/dL Lactate (0.5-1.9) mmol/L Calcium 9.3 (8.4-10.6) mg/dL Total Bilirubin 1.0 (0.1-1.5) mg/dL AST 35 (12-35) U/L ALT 28 (4-50) U/L Alkaline Phosphatase 161 H (40-150) U/L C-Reactive Protein 4.4 H (0.5-1.0) mg/dL Total Protein 9.3 H (6.0-8.3) g/dL Albumin 5.3 H (3.3-5.0) g/dL Urine Color (Yellow) Urine Appearance (Clear) Urine pH (5.0-8.5) Ur Specific [place] (1.000-1.030) Urine Protein (Negative) Urine Glucose (UA) (Negative) Urine Ketones (Negative) Urine Blood (Negative) Urine Nitrite (Negative) Urine Bilirubin (Negative) Urine Urobilinogen (0.2-1.0) Ur Leukocyte Esterase (Negative) Urine RBC (0-2) Urine WBC (0-5) Ur Squamous Epith Cells (None-Few) Urine Bacteria (None) SARS-CoV-2 (PCR) Negative SARS-CoV-2 (Negative) Influenza Type A (PCR) Negative PCR FLU A (Negative) Influenza Type B (PCR) Negative PCR FLU B (Negative) RSV (PCR) Negative PCR RSV (Negative) Lab Acknowledgement POC Troponin I 0.03 (0.01-0.04) ng/ml 11/10/23 11/10/23 11/10/23 Range/Units 19:48 21:20 22:34 WBC (4.50-11.00) K/uL RBC (4.30-5.90) m/uL Hgb (13.5-17.5) gm/dL Hct (37.0-53.0) % MCV (80-100) fL MCH (26-34) pg MCHC (32-36) gm/dL RDW Coeff of Hilda (11.5-15.5) % Plt Count (140-440) K/uL Neut % (Auto) (42.0-72.0) % Lymph % (Auto) (20-44) % [place] % (Auto) (0.0-11.0) % Eos % (Auto) (0.0-7.0) % Baso % (Auto) (0.0-3.0) % Neut # (Auto) (1.7-7.0) K/uL Lymph # (Auto) (0.90-2.90) K/uL [place] # (Auto) (0.00-0.90) K/UL Eos # (Auto) (0.00-0.50) K/uL Baso # (Auto) (0.00-0.30) K/uL Abs Immat Gran (auto) (0.00-0.30) K/uL Imm/Tot Granulo (auto) % INR (0.91-1.10) Sodium (135-149) mmol/L Potassium (3.6-5.1) mmol/L Chloride (96-114) mmol/L Carbon Dioxide (20-32) mmol/L Anion Gap (7-15) mEq/L BUN (7-30) mg/dL Creatinine (0.5-1.5) mg/dL Estimated Creat Clear Estimated GFR ml/min Glucose (60-115) mg/dL Lactate 1.3 (0.5-1.9) mmol/L Calcium (8.4-10.6) mg/dL Total Bilirubin (0.1-1.5) mg/dL AST (12-35) U/L ALT (4-50) U/L Alkaline Phosphatase (40-150) U/L C-Reactive Protein (0.5-1.0) mg/dL Total Protein (6.0-8.3) g/dL Albumin (3.3-5.0) g/dL Urine Color Yellow (Yellow) Urine Appearance Clear (Clear) Urine pH 7.5 (5.0-8.5) Ur Specific [place] 1.020 (1.000-1.030) Urine Protein 3+ A (Negative) Urine Glucose (UA) Negative (Negative) Urine Ketones Negative (Negative) Urine Blood Trace-intact A (Negative) Urine Nitrite Negative (Negative) Urine Bilirubin Negative (Negative) Urine Urobilinogen 0.2 (0.2-1.0) Ur Leukocyte Esterase Negative (Negative) Urine RBC 0-2 (0-2) Urine WBC 0-2 (0-5) Ur Squamous Epith Cells None (None-Few) Urine Bacteria Few A (None) SARS-CoV-2 (PCR) (Negative) Influenza Type A (PCR) (Negative) Influenza Type B (PCR) (Negative) RSV (PCR) (Negative) Lab Acknowledgement Test Added POC Troponin I (0.01-0.04) ng/ml Imaging Data CT Chest/Ab/Pelvis: Attestation: I have reviewed the pertinent imaging results. Radiologist's impression: Cardiovascular structures: Thoracic aorta is normal in caliber with atherosclerotic calcification. No pericardial effusion. Severe coronary atherosclerosis. Mediastinum and ed: No mass or adenopathy. Lungs and pleura: No pleural effusion or pneumothorax. Discoid atelectasis right upper lobe. 4 millimeter pulmonary nodule right lower lobe (3, 66) subpleural scarring left lower lobe. Chest wall and axilla: No mass or adenopathy. Bones: Bilateral glenohumeral osteoarthritis. Old right 3rd rib fracture anteriorly. ABDOMEN AND PELVIS: Liver: Minimal calcification along the margin of the liver. Gallbladder and bile ducts: Status post cholecystectomy. Pancreas: Pancreatic atrophy with several cystic lesions redemonstrated throughout the pancreas ranging from the head to the pancreatic tail. Largest measures 2 centimeters. Spleen: Unremarkable. Adrenal glands: Unremarkable. Kidneys: Bilateral renal cortical atrophy consistent with chronic kidney disease with multiple right renal lesions including several hyperdense ones which appears similar to the prior exam. Status post coiling on the left with some perinephric fat stranding and subcapsular fluid which is lower density with a peripheral rim measuring up to 7.4 centimeters. There are some adjacent collections which appear to communicate with the subcapsular fluid superiorly as well as left laterally and inferiorly. These have decreased in size compared to the prior exam, largest measuring 7.4 centimeters in length (prior 9.3 cm at the same level). These somewhat exophytic perinephric collections are also lower in density than on the prior exam. GI tract: Stomach is decompressed. No dilated loops of large or small intestine with a large amount of stool within the colon. Vascular structures: Atherosclerosis without abdominal aortic aneurysm. Status post left renal coiling. Pelvic Organs: Unremarkable. Bones: Degenerative disc disease lumbar spine. IMPRESSION: 1. Bilateral renal atrophy with left perinephric fluid collection and several exophytic collections measuring up to 7.4 centimeters. This is in the same distribution as the previously noted left perinephric hemorrhage. Current collections show a peripheral rim and internal lower density consistent with chronic evolving hematomas. 2. No dilated loops of large or small intestine with large amount of stool within the colon. 3. Pancreatic atrophy with multiple pancreatic cystic lesions, stable compared to the prior exam. Differential diagnosis includes pancreatic cysts or side branch IPMNs. 4. Atherosclerosis including severe coronary atherosclerosis. CT scan - abdomen: Attestation: I have reviewed the pertinent imaging results. My impression: Repeat exam with IV contrast to ascertain possibility of abscess formation. Radiologist's impression: Unfortunately, noted contrast was noted on CT and thus will repeat imaging with contrast. Chest abdomen pelvis with IV contrast: Attestation: I have reviewed the pertinent imaging results. Radiologist's impression: Lungs and pleura: Left lower lobe patchy consolidation, unchanged. No suspicious nodules. No pleural effusions or pneumothorax thorax. Cardiovascular structures: Heart size is normal. Thoracic aorta and main pulmonary artery are normal in caliber. Coronary artery calcifications. Mediastinum and ed: No mass or adenopathy. Chest wall and axilla: No mass or adenopathy. Bones: Degenerative changes. Old anterior right 3rd rib fracture. ABDOMEN AND PELVIS: Liver: Unremarkable. Gallbladder and bile ducts: Status post cholecystectomy. Spleen: Unremarkable. Adrenal glands: Unremarkable. Pancreas: Atrophic pancreas with multiple low-density lesions, unchanged. Kidneys: Bilateral renal cortical thinning. No significant change in multiple left perinephric chronic hematomas, including a left subcapsular chronic hematoma. Similar asymmetric left perinephric stranding. Bilateral renal cysts. Multiple indeterminate lesions in the right kidney measuring 1.4 cm (series 2, image 158), 1.3 cm (series 2, image 162), 1.6 cm (series 2, image 165), and 1.3 cm (series 2, image 169). No stones or hydronephrosis. GI tract: Moderate colonic stool load. No evidence of obstruction. Normal appendix. Lymph nodes: Unremarkable. Vascular structures: Scattered atherosclerotic calcifications. Abdominal aorta is normal in caliber. Left renal artery stent as well as branch coil embolization, unchanged. Miscellaneous: Small fat containing umbilical hernia. No free air or significant free fluid. Pelvic organs: Unremarkable. Bones: Degenerative changes. IMPRESSION: 1. No significant change in multiple left perinephric chronic hematomas and surrounding left perinephric stranding. Recommend correlation with laboratory values to evaluate for superimposed infectious process. 2. Similar left lower lobe patchy consolidation, which may reflect pneumonia and/or aspiration pneumonitis. 3. Multiple indeterminate right renal lesions. These are increased in size since prior postcontrast CT abdomen and pelvis 03/02/2023. Consider further characterization with CT/MRI abdomen (renal mass protocol) on an outpatient basis. ECG Data Attestation: I personally reviewed and interpreted this ECG as follows: ECG interpretation date: 11/10/23 Interpretation: EKG by my read shows sinus rhythm at a rate of 81. I do not note any acute ST or T-wave changes. QT is prolonged at 499 milliseconds VT interval within normal limits. Discharge Plan Discharge Clinical Impression: Liver transplant recipient, Perinephric fluid collection, Dialysis patient Pneumonia Qualifiers: Pneumonia type: due to unspecified organism Laterality: left Lung location: lower lobe of lung Qualified Code(s): J18.9 - Pneumonia, unspecified organism Condition: Improved Prescriptions: No Action albuterol sulfate 90 mcg/actuation HFA aerosol inhaler 2 puff inhalation Q6H PRN aspirin [Adult Low Dose Aspirin] 81 mg tablet,delayed release (DR/EC) 81 mg PO QDAY atorvastatin 10 mg tablet 10 mg PO QDAY azelastine 137 mcg (0.1 %) aerosol,spray 1 spray intranasal BID Rx Instructions: administer into each nostril budesonide [Pulmicort] 0.25 mg/2 mL suspension for nebulization 0.5 mg inhalation QDAY coenzyme Q10 100 mg capsule 100 mg PO QDAY ipratropium bromide 21 mcg (0.03 %) spray,non-aerosol 2 spray intranasal BID Rx Instructions: administer into each nostril lamotrigine [Lamictal] 200 mg tablet 200 mg PO BID levothyroxine 25 mcg capsule 25 mcg PO QDAY loratadine 10 mg tablet 10 mg PO QDAY montelukast [Singulair] 10 mg tablet 10 mg PO QDAY mycophenolate mofetil [CellCept] 500 mg tablet 500 mg PO Q12H nifedipine [Procardia XL] 30 mg tablet extended release 24hr 30 mg PO QDAY prednisone 5 mg tablet 5 mg PO QDAY tacrolimus [Prograf] 0.5 mg capsule 1.5 mg PO Q12H torsemide 10 mg tablet 10 mg PO QAM trazodone 100 mg tablet 100 mg PO QDAY Trelegy Ellipta 200-62.5-25 mcg blister with device 1 inh inhalation QDAY voriconazole [Vfend] 200 mg tablet 200 mg PO Q12H Rx Instructions: administer on empty stomach, at least 1 hour before or after meal(s) gabapentin 100 mg capsule See Rx Instructions .ROUTE .COMPLEX Qty: 20 0RF Rx Instructions: 100 mg orally every other day after dialysis. Follow Up/Referrals: Ryan Cole MD [Primary Care Provider] -
--- NOTE | 2023-11-10 17:50 | CT_ITS ---
Patient: JOSE ALEJANDRO CUELLO Facility:?[facility] Patient ID:?[id number] Site Patient ID:?[id number] Site :?1955 Study:?CT-Chest/Abd/Pelvis w/o-11/10/2023 6:20:11 PM Ordering Physician:Eunice Ramirez Final Report: INDICATION: Acute left flank pain. History of retroperitoneal hematoma. TECHNIQUE: CT chest, abdomen and pelvis acquired with no intravenous contrast. COMPARISON: Abdomen and pelvis CT 09/19/2023 FINDINGS: CHEST: Cardiovascular structures: Thoracic aorta is normal in caliber with atherosclerotic calcification. No pericardial effusion. Severe coronary atherosclerosis. Mediastinum and ed: No mass or adenopathy. Lungs and pleura: No pleural effusion or pneumothorax. Discoid atelectasis right upper lobe. 4 millimeter pulmonary nodule right lower lobe (3, 66) subpleural scarring left lower lobe. Chest wall and axilla: No mass or adenopathy. Bones: Bilateral glenohumeral osteoarthritis. Old right 3rd rib fracture anteriorly. ABDOMEN AND PELVIS: Liver: Minimal calcification along the margin of the liver. Gallbladder and bile ducts: Status post cholecystectomy. Pancreas: Pancreatic atrophy with several cystic lesions redemonstrated throughout the pancreas ranging from the head to the pancreatic tail. Largest measures 2 centimeters. Spleen: Unremarkable. Adrenal glands: Unremarkable. Kidneys: Bilateral renal cortical atrophy consistent with chronic kidney disease with multiple right renal lesions including several hyperdense ones which appears similar to the prior exam. Status post coiling on the left with some perinephric fat stranding and subcapsular fluid which is lower density with a peripheral rim measuring up to 7.4 centimeters. There are some adjacent collections which appear to communicate with the subcapsular fluid superiorly as well as left laterally and inferiorly. These have decreased in size compared to the prior exam, largest measuring 7.4 centimeters in length (prior 9.3 cm at the same level). These somewhat exophytic perinephric collections are also lower in density than on the prior exam. GI tract: Stomach is decompressed. No dilated loops of large or small intestine with a large amount of stool within the colon. Vascular structures: Atherosclerosis without abdominal aortic aneurysm. Status post left renal coiling. Pelvic Organs: Unremarkable. Bones: Degenerative disc disease lumbar spine. IMPRESSION: 1. Bilateral renal atrophy with left perinephric fluid collection and several exophytic collections measuring up to 7.4 centimeters. This is in the same distribution as the previously noted left perinephric hemorrhage. Current collections show a peripheral rim and internal lower density consistent with chronic evolving hematomas. 2. No dilated loops of large or small intestine with large amount of stool within the colon. 3. Pancreatic atrophy with multiple pancreatic cystic lesions, stable compared to the prior exam. Differential diagnosis includes pancreatic cysts or side branch IPMNs. 4. Atherosclerosis including severe coronary atherosclerosis. Please note that all CT scans at this facility use dose modulation, iterative reconstruction, and/or weight-based dosing when appropriate to reduce radiation dose to as low as reasonably achievable. Dictated by Angel Holloway MD @ 11/10/2023 7:02:25 PM Signed by:?Angel Hollwoay MD @11/10/2023 7:02:25 PM (Electronic Signature)
[2023-11-10] MEDS: ONDANSETRON 2 MG/ML inj 4 MG IVP (18:03)
[2023-11-10] MEDS: HYDROmorphone 0.5 mg/0.5 ml inj IVP ×3 (18:03→23:55)
[2023-11-10 18:04] LABS: Basophils Absolute Auto 0.02 K/uL (0.00-0.30); Basophils Percent Auto 0.2 % (0.0-3.0); Eosinophils Absolute Auto 0.12 K/uL (0.00-0.50); Eosinophils Percent Auto 1.5 % (0.0-7.0); Hemoglobin* 11.6 gm/dL (13.5-17.5); Immature Granulocytes Abs Auto 0.02 K/uL (0.00-0.30); Immature Granulocytes Pct Auto 0.2 %; Lymphocytes Percent Auto 19.6 % (20-44); Mean Corpuscular HGB Conc 31 gm/dL (32-36); Mean Corpuscular Hemoglobin 28 pg (26-34); Mean Corpuscular Volume 88 fL (80-100); Monocytes Percent Auto 11.1 % (0.0-11.0); Neutrophils Absolute Auto 5.47 K/uL (1.7-7.0); Neutrophils Percent Auto 67.4 % (42.0-72.0); Platelet Count* 293 K/uL (140-440); White Blood Count* 8.12 K/uL (4.50-11.00)
[2023-11-10 18:19] LABS: INR 0.85 (0.91-1.10); Prothrombin Time 12.1 Seconds
[2023-11-10 18:21] LABS: Slide Review Reflex No
[2023-11-10 18:34] LABS: Troponin, Point-of-Care* 0.03 ng/ml (0.01-0.04)
[2023-11-10 18:46] LABS: Albumin* 5.3 g/dL (3.3-5.0); Chloride* 93 mmol/L (96-114)
[2023-11-10 18:47] LABS: Potassium* 4.1 mmol/L (3.6-5.1); Sodium* 134 mmol/L (135-149)
[2023-11-10 18:49] LABS: Alanine Aminotransferase* 28 U/L (4-50); Alkaline Phosphatase* 161 U/L (40-150); Anion Gap 17 mEq/L (7-15); Aspartate Amino Transferase* 35 U/L (12-35); Blood Urea Nitrogen* 33 mg/dL (7-30); Carbon Dioxide* 24 mmol/L (20-32); Est. Creatinine Clearance* 23.24; Estimated Glomerular Filt Rate 22 ml/min; Glucose* 120 mg/dL (60-115); Total Protein* 9.3 g/dL (6.0-8.3)
[2023-11-10 18:50] LABS: Calcium* 9.3 mg/dL (8.4-10.6)
[2023-11-10] MEDS: ACETAMINOPHEN 500 MG TABLET 1000 MG PO (19:30)
--- NOTE | 2023-11-10 19:31 | PC.NURSE ---
Pt denies pain currently, declines another dose of dilaudid, physician updated with pt's vitals/fever. Lab called for cultures and lactate.
[2023-11-10 19:50] LABS: Lactate* 1.3 mmol/L (0.5-1.9)
[2023-11-10 20:27] LABS: PCR FLU A Negative PCR FLU A (Negative); PCR FLU B Negative PCR FLU B (Negative); PCR RSV Negative PCR RSV (Negative); SARS PCR* Negative SARS-CoV-2 (Negative)
[2023-11-10 21:23] LABS: Appearance Urine Clear (Clear); Bilirubin Urine Negative (Negative); Blood Urine Trace-intact (Negative); Color Urine Yellow (Yellow); Glucose Urine Negative (Negative); Ketones Urine Negative (Negative); Leukocyte Esterase Urine Negative (Negative); Nitrite Urine Negative (Negative); Protein Urine 3+ (Negative); Urobilinogen Urine 0.2 (0.2-1.0); pH Urine 7.5 (5.0-8.5)
[2023-11-10 21:29] LABS: Bacteria Urine Few; RBC Urine 0-2 (0-2); WBC Urine 0-2 (0-5)
[2023-11-10] MEDS: PIPERACILLIN/TAZOBACTAM 3.375 GM in 0.9 % SODIUM CHLORIDE Mini-bag 100 ML IVPB (21:55)
[2023-11-10 23:11] LABS: C Reactive Protein* 4.4 mg/dL (0.5-1.0)
--- NOTE | 2023-11-10 23:56 | PC.NURSE ---
Pt left side pain 01/30, states it's right back where it was. States it hurts more on left side when he attempts to take a deep breath.
--- NOTE | 2023-11-11 00:28 | CT_ITS ---
Patient: JOSE ALEJANDRO CUELLO Facility:?[facility] Patient ID:?[id number] Site Patient ID:?[id number]. Site :?1955 Study:?CT-Abdomen/Pelvis W/ISOVUE 370 83CC-11/11/2023 1:17:15 AM Ordering Physician:EZRA Final Report: INDICATION: Left flank pain. TECHNIQUE: CT abdomen and pelvis with 83 cc Isovue 370 IV contrast. COMPARISON: November 10, 2023. FINDINGS: Lower chest: Interval development of a left lower lobe infiltrate suggesting pneumonia or aspiration. Liver: Normal in size and attenuation. No suspicious masses. Gallbladder and bile ducts: No stones or inflammation. No biliary dilatation. Pancreas: Unremarkable. No mass or inflammation. Spleen: Normal in size. No masses. Adrenal glands: Normal in size. No nodules. Kidneys: Redemonstration of a complex area of a left perinephric fluid collection with adjacent fat stranding or inflammation. Both kidneys are atrophic. GI tract: Unremarkable. Normal in caliber. No sign of mass or inflammation. Normal appendix. Vasculature: Abdominal aorta is normal in caliber. Lymph nodes: No lymphadenopathy. Peritoneum/Abdominal Wall: Unremarkable. No sign of mass or infiltration. No free air or significant free fluid. Pelvis: Unremarkable. No pelvic masses. Bones: Unremarkable for age. IMPRESSION: 1. New left lower lobe airspace infiltrate which was not present on the prior exam from 7 hours prior. This could represent interval aspiration. 2. Unchanged complex left perinephric fluid collection with adjacent edema/inflammation. 3. Despite the administration of IV contrast, there is no contrast visualized on this exam. Please note that all CT scans at this facility use dose modulation, iterative reconstruction, and/or weight-based dosing when appropriate to reduce radiation dose to as low as reasonably achievable. Dictated by Sabino Garcia MD @ 11/11/2023 1:34:12 AM Signed by:?Sabino Garcia MD @11/11/2023 1:34:12 AM (Electronic Signature)
[2023-11-11] MEDS: fentaNYL 100 MCG/2 ML inj 50 MCG IVP (01:00)
--- NOTE | 2023-11-11 01:41 | CT_ITS ---
Patient: JOSE ALEJANDRO CUELLO Facility:?[facility] Patient ID:?[id number] Site Patient ID:?[id number]. Site :?1955 Study:?CT-Chest/Abd/Pelvis W/ISOVUE 370 83CC-11/11/2023 2:39:30 AM Ordering Physician:EZRA Final Report: INDICATION: Left flank pain. TECHNIQUE: CT chest, abdomen, and pelvis acquired with 83 cc Isovue 370 IV contrast. COMPARISON: CT abdomen and pelvis 11/11/2023. CT chest, abdomen, and pelvis 11/10/2023. FINDINGS: CHEST: Lungs and pleura: Left lower lobe patchy consolidation, unchanged. No suspicious nodules. No pleural effusions or pneumothorax thorax. Cardiovascular structures: Heart size is normal. Thoracic aorta and main pulmonary artery are normal in caliber. Coronary artery calcifications. Mediastinum and ed: No mass or adenopathy. Chest wall and axilla: No mass or adenopathy. Bones: Degenerative changes. Old anterior right 3rd rib fracture. ABDOMEN AND PELVIS: Liver: Unremarkable. Gallbladder and bile ducts: Status post cholecystectomy. Spleen: Unremarkable. Adrenal glands: Unremarkable. Pancreas: Atrophic pancreas with multiple low-density lesions, unchanged. Kidneys: Bilateral renal cortical thinning. No significant change in multiple left perinephric chronic hematomas, including a left subcapsular chronic hematoma. Similar asymmetric left perinephric stranding. Bilateral renal cysts. Multiple indeterminate lesions in the right kidney measuring 1.4 cm (series 2, image 158), 1.3 cm (series 2, image 162), 1.6 cm (series 2, image 165), and 1.3 cm (series 2, image 169). No stones or hydronephrosis. GI tract: Moderate colonic stool load. No evidence of obstruction. Normal appendix. Lymph nodes: Unremarkable. Vascular structures: Scattered atherosclerotic calcifications. Abdominal aorta is normal in caliber. Left renal artery stent as well as branch coil embolization, unchanged. Miscellaneous: Small fat containing umbilical hernia. No free air or significant free fluid. Pelvic organs: Unremarkable. Bones: Degenerative changes. IMPRESSION: 1. No significant change in multiple left perinephric chronic hematomas and surrounding left perinephric stranding. Recommend correlation with laboratory values to evaluate for superimposed infectious process. 2. Similar left lower lobe patchy consolidation, which may reflect pneumonia and/or aspiration pneumonitis. 3. Multiple indeterminate right renal lesions. These are increased in size since prior postcontrast CT abdomen and pelvis 03/02/2023. Consider further characterization with CT/MRI abdomen (renal mass protocol) on an outpatient basis. Please note that all CT scans at this facility use dose modulation, iterative reconstruction, and/or weight-based dosing when appropriate to reduce radiation dose to as low as reasonably achievable. Dictated by Scott Romero MD @ 11/11/2023 2:57:53 AM Signed by:?Scott Romero MD @11/11/2023 2:57:53 AM (Electronic Signature)
[2023-11-11] MEDS: PIPERACILLIN/TAZOBACTAM 3.375 GM in 0.9 % SODIUM CHLORIDE Mini-bag 100 ML IVPB (04:40)
--- NOTE | 2023-11-11 04:49 | PC.NURSE ---
Tylenol 1000mg PO at 0450.
[2023-11-11 04:55] VITALS: BP 182/92; PULSE 79; RESP 20; TEMP 37.3; O2SAT 99
[2023-11-11 05:05] VITALS: TEMP 37.3
[2023-11-11] MEDS: ACETAMINOPHEN 500 MG TABLET 1000 MG PO (05:05)
== END 2023-11-11 05:35 | disposition short-term general hospital (02) ==
PROVIDERS: Emergency Provider Family Medicine; PCP Surgery
DX: N15.1 Renal and perinephric abscess (principal); Z94.4 Liver transplant status; J18.9 Pneumonia, unspecified organism
CPT/HCPCS: 36415; 71250; 71260; 74176; 74177; 80053; 81001; 83605; 84484; 85025; 85610; 86140; 87040; 87077; 87086; 87181; 87185; 87186; 87631; 93005; 96365; 96366; 96375; 99285; A9270; J1170; J2405; J2543; J3010; J3370; J7030; Q9967

== ENCOUNTER 2023-11-11 05:05 | Outpatient (CLI) | payer MEDICARE, BC, SELFPAY | END 2023-11-11 05:06 | disposition home or self-care (01) | LOC: AMB 11-14 10:39 | PROVIDERS: PCP Surgery; Visit Provider Family Medicine | DX: J18.9 Pneumonia, unspecified organism (principal); N28.89 Other specified disorders of kidney and ureter; Z99.2 Dependence on renal dialysis; Z94.4 Liver transplant status | CPT/HCPCS: A0425; A0434 ==

== ENCOUNTER 2024-02-26 14:50 | Emergency (ER) | payer MEDICARE, BC, SELFPAY ==
[2024-02-26] VITALS (17 sets, daily range): BP systolic 119–186; BP diastolic 66–97; PULSE 70–82; RESP 16; TEMP 36.9; O2SAT 94–100; BMI 23.6
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
[2024-02-26] MEDS: OXYCODONE 5 MG TABLET PO (15:23)
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
--- OUTSIDE RECORDS SUMMARY | 2024-02-26 15:59 | XMS_ITS | Encounter Summary ---
Author Organization [facility] Address [address] [place] [address] Phone Care Team Providers Care Staff Trainer Name Role Phone Unavailable Primary Care Provider Unavailabl e Encounter Details Date Type Department Care Team (Late st Contact Info) Description 11/11/2023 Orders Only [facility] Film Room [facility] Radiology Department ESTEFANI [address] [facility]. [address] [address] Provider, [place] [address] Referral of patient (Primary Dx) Social History Tobacco Use Types Packs/Day Years Used Date Smoking Tobacco: Never Assessed Sex and Gender Information Value Date Recorded Sex Assigned at Not on file Gender Identity Not on file Sexual Orientation Not on file documented as of this encounter Plan of Treatment Not on file documented as of this encounter Results * CT CHEST/ABDOMEN/PELVIS OUTSIDE FILMS (11/11/2023 2:02 AM CDT) Olga Lidia WalkerSilent-Scheduler - 11/11/2023 7:57 AM CDT Outside Film Only Outside Provider RAD OUTSIDE FILMS * CT CHEST/ABDOMEN/PELVIS OUTSIDE FILMS (11/10/2023 6:05 PM CDT) Olga Lidia WalkerSilent-Scheduler - 11/11/2023 7:57 AM CDT Outside Film Only Outside Provider RAD OUTSIDE FILMS documented in this encounter Visit Diagnoses Diagnosis Referral of patient- Primary Referral of patient without examination or treatment documented in this encounter
--- OUTSIDE RECORDS SUMMARY | 2024-02-26 15:59 | XMS_ITS | Clinical Summary ---
Author Organization [employer] Address [address] [place] [address] Phone Care Team Providers Care Cd Reactor Operator Head Name Role Phone Unavailable Primary Care Provider Unavailabl e Source Comments [employer] is fully rolled out on [employer]. Last update 11/25/08.[employer] Allergies Active Allergy Reactions Criticality Noted Date Comments Aspirin Other (see comments) 12/27/2011 Liver transplant Cefixime Diarrhea High 09/29/2015 C Diff Ciprofloxacin Other (see comments) Medium 07/14/2013 Other Reaction(s): Intolerance-Can't Take, Other (see comments) Liver transplant Tendon pain Tendon pain, Liver transplant Liver transplant Tendon pain Tendon pain, Liver transplant Citalopram Other (see comments) High 07/14/2013 Other Reaction(s): Intolerance-Can't Take, Other (see comments) Liver transplant michell Michell, Liver transplant Liver transplant michell Michell, Liver transplant Erythromycin Other (see comments) Low 09/09/2006 interacts with meds Erythromycin Base Other (see comments) Medium 05/22/20 15 Due to medications, interacts with transplant medications Due to medications, interacts with transplant medications Due to medications, interacts with transplant medications Due to medications, interacts with transplant medications Ibuprofen Other (see comments) High 11/04/2016 Other Reaction(s): Other (see comments) PT SHOULD NOT HAVE THIS MED R/T LIVER TRANSPLANT PT SHOULD NOT HAVE THIS MED R/T LIVER TRANSPLANT Olanzapine Arthralgia/Joint Pain,Other (see comments) High 05/22/2015 Other Reaction(s): Muscle Weakness, Other (see comments) Joint pain Joint pain Quetiapine Edema,Swelling,Other (see comments) High 07/14/2013 Other Reaction(s): Intolerance-Can't Take, Other (see comments) Liver transplant Muscle pain and swelling Liver transplant Muscle pain and swelling Medications * Be aware that medications may not be up to date as of this document. Always verify current medications with patient. Medication Sig Dispensed Refills Start Date End Date Status azaTHIOprine (IMURAN) 50 mg oral TABS Take 1 tablet (50 mg) by mouth twice daily. 08/22/2023 Active everolimus (ZORTRESS) 0.5 MG oral tablet Take 2 tablets (1 mg) by mouth twice daily 08/28/2023 Active predniSONE 5 mg oral tablet Take 1 tablet (5 mg) by mouth daily. 09/06/2023 Active torsemide (DEMADEX) 100 mg oral TABS Take 1 tablet (100 mg) by mouth twice daily. 03/18/2023 03/17/2024 Active Social History Tobacco Use Types Packs/Day Years Used Date Smoking Tobacco: Never Assessed Sex and Gender Information Value Date Recorded Sex Assigned at Not on file Gender Identity Not on file Sexual Orientation Not on file Last Filed Vital Signs Vital Sign Reading Time Taken Comments Blood Pressure 123/64 11/11/2023 5:38 PM CDT Pulse 78 11/11/2023 3:30 PM CDT Temperature 37.2 ??C (99 ??F) 11/11/2023 6:01 AM CDT Respiratory Rate 14 11/11/2023 5:38 PM CDT Oxygen Saturation 97% 11/11/2023 5:38 PM CDT Inhaled Oxygen Concentration - - Weight - - Height - - Body Mass Index - - Plan of Treatment Health Maintenance Due Date Last Done Comments CT Colonography 1954 Colonoscopy 1954 Dental Oral Exam 1954 Dental Prophylaxis 1954 Dental X-Ray: Bitewings 1954 FIT/Cologuard 1954 Sigmoidoscopy 1954 Periodontal Maintenance 1968 Medicare Annual Wellness 1972 PREVENTATIVE VISIT 1972 HEALTH MAINTENANCE PROTOCOL 1973 Imm: HepB (3 of 3 - 19+ 3-dose series) 02/01/1999 12/07/1998, 07/06/1998, 06/22/1998, Additional history exists Imm: DTaP/Tdap (3 - Td or Tdap) 08/20/2012 02/19/2012, 05/11/2003 Colorectal Cancer Screening 05/01/2022 iFOB/FIT 05/01/2022 05/01/2021, 03/23, 11/19/2018 Imm: COVID-19 ( season) 2024 05/13/2023, 01/21/2022, 07/31/2021, Additional history exists Imm: Flu (#1) 02/22/2024 03/23/2023, 02/21, 02/11/2020, Additional history exists Lipid Screening 02/06/2028 02/05/2023, 02/2023, 12/11/2022, Additional history exists Imm: HepA Aged Out 12/25/2012, 11/21, 06/08/1998 No longer eligible based on patient's age to complete this topic Imm: Zoster Completed 01/06/2018, 10/03/2017 Imm: Pneumonia greater than 65 years Completed 05/06/2023, 06/23/2014, 12/25/2012, Additional history exists Hepatitis C Screening Completed 06/02/2023 Abdominal Aortic Aneurysm (AAA) Screening Completed 08/09/2023 Imm: HPV Aged Out No longer eligi ble based on patient's age to complete this topic Imm: Hib Aged Out No longer eligi ble based on patient's age to complete this topic Imm: Meningitis Aged Out No longer el igible based on patient's age to complete this topic
--- OUTSIDE RECORDS SUMMARY | 2024-02-26 15:59 | XMS_ITS | Referral Summary ---
Author Organization [facility] Address [address] [place] [address] Phone Care Team Providers Care Masseur/Masseuse Name Role Phone Unavailable Primary Care Provider Unavailabl e Source Comments [employer] is fully rolled out on [employer]. Last update 11/25/08.[employer] Allergies Active Allergy Reactions Criticality Noted Date [...] Mass Index - - Plan of Treatment Not on file
--- OUTSIDE RECORDS SUMMARY | 2024-02-26 15:59 | XMS_ITS | Clinical Summary ---
Author Organization [facility] Address [address] [place] [address] Care Team Providers Care Superintendent Fish Hatchery Name Role Phone Sánchez Kowalski APRN MEDICAL RECORDS COORDINATOR Unavailable [phone] Marlen Esposito MD Unavailable Patricia Willoughby RD Unavailable Unavail able Karen Steel ELECTRONICS TECH Unavailable Marlen Esposito MD Unavailable [phone] Karen Steel ELECTRONICS TECH Unavailable [phone] Sánchez Kowalski APRN MEDICAL RECORDS COORDINATOR Unavailable Patricia Willoughby RD Unavailable Unavail able Ryan Cole MD Primary Care Provider [phone] Barbara Valdes MD Unavailable [phone] Allergies Active Allergy Reactions Criticality Noted Date [...] 4 CAPSULES BY MOUTH BEFORE DENTAL APPOINTMENT 08/08/2022 Active B Wfibhpo-O-Jyotp Acid (DAVE-DAVID RX) 1 mg TABS Take 1 tablet by mouth daily (with dinner) 09/08/2021 Active co-enzyme Q-10 100 MG CAPS capsule Take 100 mg by mouth daily Active ipratropium (ATROVENT) 0.03 % nasal spray INHALE 2 SPRAYS IN EACH NOSTRIL TWICE DAILY, UP TO FIVE TIMES DAILY NEEDED 03/17/2023 Active lamoTRIgine (LAMICTAL) 200 MG tablet Take 200 mg by mouth 2 times daily Active levothyroxine (SYNTHROID/LEVOTHR OID) 75 MCG tablet Take 75 mcg by mouth daily 08/07/2022 Active loratadine (CLARITIN) 10 MG tablet Take 10 mg by mouth at bedtime 03/27/2023 Active montelukast (SINGULAIR) 10 MG tablet Take 1 tablet by mouth at bedtime 05/29/2023 Active sodium chloride inhalant 7 % NEBU neb solution USE AFTER NEBULIZATION WITH DUONEB IN THE MORNING AND AT NIGHT Active torsemide (DEMADEX) 100 MG tablet Take 100 mg by mouth 2 times daily 03/18/2023 03/17/2024 Active atorvastatin (LIPITOR) 10 MG tablet Take 10 mg by mouth at bedtime Active predniSONE (DELTASONE) 5 MG tablet Take 5 mg by mouth daily Active everolimus (ZORTRESS) 0.5 MG tablet Take 1 mg by mouth 2 times daily Active NIFEdipine ER OSMOTIC (PROCARDIA XL) 30 MG 24 hr tablet Take 90 mg by mouth daily Active azaTHIOprine (IMURAN) 50 MG tabletIndications: History of liver transplant (H) Take 1 tablet (50 mg) by mouth 2 times daily 11/25/2023 Active Active Problems Problem Noted Date Diagnosed Date Pneumonia 11/11/2023 Acute pericardial effusion 03/24/2023 ESRD (end stage renal disease) on dialysis 01/23 Hypertensive kidney disease, stage V 11/20/2010 Essential hypertension 07/10/2007 History of liver transplant 07/16/2004 Overview: & 2012 On chronic immune suppression Family History Medical History Relation Comments Coronary [...] Sign Reading Time Taken Comments Blood Pressure 131/74 11/18/2023 8:03 AM CDT Pulse 80 11/18/2023 8:03 AM CDT Temperature 36.3 ??C (97.4 ??F) 11/18/2023 8:03 AM CD T Respiratory Rate 16 11/18/2023 8:03 AM CDT Oxygen Saturation 100% 11/18/2023 8:03 AM CDT Inhaled Oxygen Concentration - - Weight 76.2 kg (167 lb 15.9 oz) 11/17/2023 1:00 PM CDT Height 175.3 cm (5' 9) 11/11/2023 8:25 PM CDT Body Mass Index 24.81 11/11/2023 8:25 PM CDT Plan of Treatment Health Maintenance Due Date Last Done Comments ADVANCE CARE PLANNING 1954 ANNUAL REVIEW OF HM ORDERS 1954 CT COLONOGRAPHY 1954 FLEX SIG 1954 LIPID 1954 PARATHYROID 1954 TSH W/FREE T4 REFLEX 1954 sDNA (Cologuard) 1954 HEPATITIS B IMMUNIZATION (3 of 5 - Risk Dialysis 4-dose series) 01/04/1999 12/07/1998, 12/07/1998, 07/06/1998, Additional history exists RSV VACCINE (1 - 1-dose 60+ series) 2014 FALL RISK ASSESSMENT 09/14/2019 MEDICARE ANNUAL WELLNESS VISIT 09/14/2019 DTAP/TDAP/TD IMMUNIZATION (3 - Td or Tdap) 02/18/2022 02/19/2012, 05/11/2003, 05/11/2003 FIT 05/01/2022 05/01/2021 PHQ-2 (once per calendar year) 2023 BMP 02/18/2024 11/18/2023, 10/22, 11/16/2023, Additional history exists COVID-19 Vaccine ( season) 2024 05/13/2023, 01/21/2022, 07/31/2021, Additional history exists INFLUENZA VACCINE (#1) 2024 , 04/08/2022, 04/08/2022, Additional history exists HEMOGLOBIN 05/20/2024 11/18/2023, 10/22, 11/16/2023, Additional history exists GLUCOSE 11/17/2026 11/18/2023, 10/22, 11/16/2023, Additional history exists COLONOSCOPY 07/10/2031 07/10/2021, 06/22/2012 COLORECTAL CANCER SCREENING 07/10/2031 ZOSTER IMMUNIZATION Completed 01/06/2018, 8 Pneumococcal Vaccine: 65+ Years Completed 05/06/2023, 06/23/2014, 12/25/2012, Additional history exists HEPATITIS C SCREENING Completed 06/02/2023 PHOSPHORUS Completed 11/16/2023, 11/13/2023 ALK PHOS Completed 11/18/2023, 10/22, 11/16/2023, Additional history exists HPV IMMUNIZATION Aged Out No longer e ligible based on patient's age to complete this topic MENINGITIS IMMUNIZATION Aged Out No l onger eligible based on patient's age to complete this topic RSV MONOCLONAL ANTIBODY Aged Out No l onger eligible based on patient's age to complete this topic Procedures Procedure Name Priority Date/Time Associated Diagnosis Comments CBC WITH PLATELETS Routine 11/18/2023 6: 25 AM CDT COMPREHENSIVE METABOLIC PANEL Routine 11/18/2023 6:25 AM CDT PHOSPHORUS Add-On 11/16/2023 6:40 AM CDT HEPATITIS C ANTIBODY Routine 06/02/2023 2:36 PM CUPOLA TAPPER History of liver transplant (H) Hypertensive kidney disease, stage V (H) ESRD (end stage renal disease) on dialysis (H) Organ transplant candidate from Last 3 Months or Most Recently Relevant to Health Maintenance Results * (ABNORMAL) Comprehensive metabolic panel (11/18/2023 6:25 AM CDT) Pathologist [facility] Sodium 138 135 - 145 mmol/L 11/18/2023 7:29 AM CDT [facility] Comment:Reference intervals for this test were updated on 03/18/2023 to more accurately reflect our healthy population. There may be differences in the flagging of prior results with similar values performed with this method. Interpretation of those prior results can be made in the context of the updated reference intervals. Potassium 3.8 3.4 - 5.3 mmol/L 11/18/2023 7:29 AM CDT [facility] Carbon Dioxide (CO2) 25 22 - 29 mmol/L 11/18/2023 7:29 AM CDT [facility] Anion Gap 14 7 - 15 mmol/L 11/18/2023 7:29 AM CDT [facility] Urea Nitrogen 21.9 8.0 - 23.0 mg/dL 11/18/2023 7:29 AM CDT [facility] Creatinine 3.70(H) 0.67 - 1.17 mg/dL 11/18/2023 7:29 AM CDT [facility] GFR Estimate 17(L) >60 mL/min/1. 73m2 11/18/2023 7:29 AM CDT [facility] Calcium 8.7(L) 8.8 - 10.2 mg/dL 11/18/2023 7:29 AM CDT [facility] Chloride 99 98 - 107 mmol/L 11/18/2023 7:29 AM CDT [facility] Glucose 91 70 - 99 mg/dL 11/18/2023 7:29 AM CDT [facility] Alkaline Phosphatase 111 40 - 150 U/L 11/18/2023 7:29 AM CDT [facility] AST 53(H) 0 - 45 U/L 11/18/2023 7:29 AM CDT [facility] Comment:Reference intervals for this test were updated on 12/02/2022 to more accurately reflect our healthy population. There may be differences in the flagging of prior results with similar values performed with this method. Interpretation of those prior results can be made in the context of the updated reference intervals. ALT 49 0 - 70 U/L 11/18/2023 7:29 AM CDT [facility] Comment:Reference intervals for this test were updated on 12/02/2022 to more accurately reflect our healthy population. There may be differences in the flagging of prior results with similar values performed with this method. Interpretation of those prior results can be made in the context of the updated reference intervals. Protein Total 6.5 6.4 - 8.3 g/dL 11/18/2023 7:29 AM CDT [facility] Albumin 3.7 3.5 - 5.2 g/dL 11/18/2023 7:29 AM CDT [facility] Bilirubin Total 0.2 <=1.2 mg/dL 11/18/2023 7:29 AM CDT [facility] Blood BLOOD SPECIMEN / Unknown Venipuncture / Unknown 11/18/2023 6:25 AM CDT 11/18/2023 7:06 AM CDT Martha Lim MD LAB - BLOOD ORDERAB LES UR LAB[facility]ATORY [facility] [address] [facility], [address] [place] [address], [facility] * (ABNORMAL) CBC with platelets (11/18/2023 6:25 AM CDT) WBC Count 4.6 4.0 - 11.0 10e3/uL 11/18/2023 7:12 AM CDT [facility] RBC Count 3.79(L) 4.40 - 5.90 10e6/uL 11/18/2023 7:12 AM CDT [facility] Hemoglobin 10.6(L) 13.3 - 17.7 g/dL 11/18/2023 7:12 AM CDT [facility] Hematocrit 35.0(L) 40.0 - 53.0 % 11/18/2023 7:12 AM CDT [facility] MCV 92 78 - 100 fL 11/18/2023 7:12 AM CDT [facility] MCH 28.0 26.5 - 33.0 pg 11/18/2023 7:12 AM CDT [facility] MCHC 30.3(L) 31.5 - 36.5 g/dL 11/18/2023 7:12 AM CDT [facility] RDW 18.9(H) 10.0 - 15.0 % 11/18/2023 7:12 AM CDT [facility] Platelet Count 271 150 - 450 10e3/uL 11/18/2023 7:12 AM CDT [facility] Blood BLOOD SPECIMEN / Unknown Venipuncture / Unknown 11/18/2023 6:25 AM CDT 11/18/2023 7:06 AM CDT Martha Lim MD LAB - BLOOD ORDERAB LES UR LABORATORY [facility] [address] [place] [address], Room [address] [address], [facility] * Phosphorus (11/16/2023 6:40 AM CDT) Phosphorus 3.3 2.5 - 4.5 mg/dL 11/16/2023 10:02 AM CDT [facility] Blood STRUCTURE OF RIGHT UPPER LIMB / Unknown Venipuncture / Unknown 11/16/2023 6:40 AM CDT 11/16/2023 6:58 AM CDT Lorena Greene DO LAB - BLOOD ORDERABL ES UR LABORATORY [facility] [address] [place] [address], Room [address] [place] [address] * Hepatitis C antibody [[id number]] (06/02/2023 2:36 PM CUPOLA TAPPER) Hepatitis C Antibody Nonreactive Nonreactive 06/03/2023 8:52 AM CUPOLA TAPPER [facility] SPECIALTY CORE/PROT/EN DO Blood STRUCTURE OF LEFT UPPER LIMB / Unknown Venipuncture / Unknown 06/02/2023 2:36 PM CUPOLA TAPPER 06/02/2023 2:37 PM CUPOLA TAPPER Narrative UM SPECIALTY CORE/PROT/ENDO - 06/03/2023 8:52 AM CUPOLA TAPPER Assay performance characteristics have not been established for newborns, infants, and children. Sánchez Kowalski APRN MEDICAL RECORDS COORDINATOR LAB - BLOOD O RDERABLES UM SPECIALTY CORE/PROT/ENDO UM Specialty Core/Prot/Endo [address] [facility], Room [address] [phone] from Last 3 Months or Most Recently Relevant to Health Maintenance Advance Directives For more information, please contact: [phone] * Full Code (Latest Code Status on File) Date Activated Date Inactivated Comments 11/11/2023 9:44 PM 11/18/2023 12:47 PM All basic a nd advanced life-sustaining interventions are performed as appropriate Question Answer Comments Code status determined by: Discussion with isaak cesar/ legal decision maker * Full Code Date Activated Date Inactivated Comments 11/11/2023 9:30 PM 11/11/2023 9:44 PM All basic an d advanced life-sustaining interventions are performed as appropriate Question Answer Comments Code status determined by: Unable to dis cuss and no AD/POLST on file; continue PREVIOUSLY ORDERED code status Care Teams Superintendent Fish Hatchery Relationship Specialty Start Date End Date Ryan Cole MD [address] [place] [address] PCP - General 06/02/23 Sánchez Kowalski APRN MEDICAL RECORDS COORDINATOR [address] [place] [address] [id number] Nurse Practitioner Nephrology 04/11/23 Marlen Esposito MD [address] [place] [address] [phone] Surgery 04/11/[address] [address] Registered Dietitian Dietitian, Registered 04/11/23 Karen Steel LICSW Safety Relief Valve Technician 04/11/23 Marlen Esposito MD [address] [place] [address] [id number] Surgery 05/21/23 Karen Steel LICSW Safety Relief Valve Technician 05/21/23 Sánchez Kowalski APRN MEDICAL RECORDS COORDINATOR [address] [place] [address] [phone] Nurse Practitioner Nephrology 05/21/[address] [facility] [address] [place] [address] Registered Dietitian Dietitian, Registered 05/21/23 Barbara Valdes MD [address] [facility] [address] [place], [place] [phone] Assigned Surgical Provider 10/14/23
--- OUTSIDE RECORDS SUMMARY | 2024-02-26 15:59 | XMS_ITS | Referral Summary ---
Author Organization [facility] Address [address] [place] [address] Care Team Providers Care Protective Signal Installer Helper Name Role Phone Sánchez Kowalski APRN LICENSED GUIDE Unavailable Marlen Esposito MD Unavailable Patricia Willoughby RD Unavailable Unavail able Karen Steel JIG BORE TOOL MAKER Unavailable [phone] Marlen Esposito MD Unavailable Karen Steel JIG BORE TOOL MAKER Unavailable Sánchez Kowalski APRN LICENSED GUIDE Unavailable Patricia Willoughby RD Unavailable Unavail able Ryan Cole MD Primary Care Provider Barbara Valdes MD Unavailable [phone] Allergies Active Allergy Reactions Criticality Noted [...] MOUTH BEFORE DENTAL APPOINTMENT 08/08/2022 Active B Jrenfbv-G-Pmlgq Acid (DAVE-DAVID RX) 1 mg TABS Take [...] 11/11/2023 8:25 PM CDT Plan of Treatment Not on file Procedures Procedure Name Priority Date/Time Associated Diagnosis Comments CBC WITH PLATELETS Routine 11/18/2023 6: 25 AM CDT COMPREHENSIVE METABOLIC PANEL Routine 11/18/2023 6:25 AM CDT PHOSPHORUS Add-On 11/16/2023 6:40 AM CDT HEPATITIS C ANTIBODY Routine 06/02/2023 2:36 PM PURSE SEINING HAND History of liver transplant (H) Hypertensive kidney disease, stage V (H) ESRD (end stage renal disease) on dialysis (H) Organ transplant candidate from Last 3 Months or Most Recently Relevant to Health Maintenance Results * (ABNORMAL) Comprehensive metabolic panel (11/18/2023 6:25 AM CDT) [facility] Sodium 138 135 - 145 mmol/L [...] 6:25 AM CDT 11/18/2023 7:06 AM CDT Mratha Lim MD LAB - BLOOD ORDERAB LES UR LABORATORY [facility] [address] [facility], [address] [place] [address] * (ABNORMAL) CBC with platelets (11/18/2023 [...] LAB - BLOOD ORDERAB LES UR LABORATORY [facility] [address] [place] [address], [address] * Phosphorus (11/16/2023 6:40 AM CDT) Phosphorus 3.3 2.5 - 4.5 mg/dL 11/16/2023 10:02 AM CDT UR LAB[facility] Blood STRUCTURE OF RIGHT UPPER LIMB / Unknown Venipuncture / Unknown 11/16/2023 6:40 AM CDT 11/16/2023 6:58 AM CDT Lorena Greene DO LAB - BLOOD ORDERABL ES UR LABORATORY [facility] [address] [place] [address], [address] [address], [place] * Hepatitis C antibody [[id number]] (06/02/2023 2:36 PM PURSE SEINING HAND) Hepatitis C Antibody Nonreactive Nonreactive 06/03/2023 8:52 AM PURSE SEINING HAND SPECIALTY CORE/PROT/EN DO Blood STRUCTURE OF LEFT UPPER LIMB / Unknown Venipuncture / Unknown 06/02/2023 2:36 PM PURSE SEINING HAND 06/02/2023 2:37 PM PURSE SEINING HAND Narrative UM SPECIALTY CORE/PROT/ENDO - 06/03/2023 8:52 AM PURSE SEINING HAND Assay performance characteristics have not been established for newborns, infants, and children. Sánchez Kowalski APRN LICENSED GUIDE LAB - BLOOD O RDERABLES UM SPECIALTY CORE/PROT/ENDO UM Specialty Core/Prot/Endo [address] [facility] [address], Room [address] [place] [address] from Last 3 Months or Most Recently Relevant to Health Maintenance Advance Directives For more information, please contact: [phone] * Full Code (Latest Code Status on File) Date Activated Date Inactivated Comments 11/11/2023 9:44 PM 11/18/2023 12:47 PM All basic a nd advanced life-sustaining interventions are performed as appropriate Question Answer Comments Code status determined by: Discussion with isaak nt/ legal decision maker * Full Code Date Activated Date Inactivated Comments 11/11/2023 9:30 PM 11/11/2023 9:44 PM All basic an d advanced life-sustaining interventions are performed as appropriate Question Answer Comments Code status determined by: Unable to dis cuss and no AD/POLST on file; continue PREVIOUSLY ORDERED code status Care Teams Protective Signal Installer Helper Relationship Specialty Start Date End Date Ryan Cole MD [address] [place] [address] PCP - General 06/02/23 Sánchez Kowalski APRN LICENSED GUIDE [address] [place] [address] Nurse Practitioner Nephrology 04/11/23 Marlen Esposito MD [address] [place] [address] Surgery 04/11/[address] [address] Registered Dietitian Dietitian, Registered 04/11/23 Karen Steel [facility] Appian Bpm Developer 04/11/23 Marlen Esposito MD [address] [place] [address] [phone] Surgery 05/21/23 Karen Steel [facility] Appian Bpm Developer 05/21/23 Sánchez Kowalski APRN LICENSED GUIDE [address] [place] [address] Nurse Practitioner Nephrology 05/21/[address] [address] Registered Dietitian Dietitian, Registered 05/21/23 Barbara Valdes MD [address] [place] [address] Assigned Surgical Provider 10/14/23
--- OUTSIDE RECORDS SUMMARY | 2024-02-26 16:00 | XMS_ITS | Encounter Summary ---
Author Organization [facility] Address [address] [place] [address]. [place] [address] Care Team Providers Care Front Man Name Role Phone Sánchez Kowalski APRN CIRCUIT MANAGER Unavailable Marlen Esposito MD Unavailable Patricia Willoughby RD Unavailable Unavail able Karen Steel Unavailable Marlen Esposito MD Unavailable Karen Steel Unavailable [phone] Sánchez Kowalski APRN CIRCUIT MANAGER Unavailable [phone] Unavailable Unavail able Ryan Cole MD Primary Care Provider [phone] Marlen Esposito MD Unavailable [phone] Barbara Valdes MD Unavailable [phone] Encounter Details Date Type Department Care Team (Late st Contact Info) Description 07/21/2023 [facility] [address] [place] [address] Linnea Graff, RN Social History Tobacco Use Types Packs/Day [...] Infection Onset Date Last Indicated Resolved Time Rule Out C-difficile 11/15/2023 11/15/2023 024 6:15 PM CDT documented as of this encounter Care Teams Front Man Relationship Specialty Start Date End Date Ryan Cole MD [address] [place] [address] PCP - General 06/02/23 Sánchez Kowalski APRN CIRCUIT MANAGER [address] [place] [address] [phone] Nurse Practitioner Nephrology 04/11/23 Marlen Esposito MD [address] [place] [address] [phone] Surgery 04/11/[address] [place] [address] Registered Dietitian Dietitian, Registered 04/11/23 Karen Steel LICSW [place] Supervisor 04/11/23 Marlen Esposito MD [address] [place] [address] [phone] Surgery 05/21/23 Karen Steel LICSW [place] Supervisor 05/21/23 Sánchez Kowalski APRN CIRCUIT MANAGER [address] [place] [address] Nurse Practitioner Nephrology 05/21/[address] [facility] [address] [facility] [address] [place] [address] Registered Dietitian Dietitian, Registered 05/21/23 Marlen Esposito MD [address] [place] [phone] Assigned Surgical Provider 06/21/23 10/13/23 Barbara Valdes MD [address] [facility] [address] [place] [address] Assigned Surgical Provider 10/14/23 documented as of this encounter
--- OUTSIDE RECORDS SUMMARY | 2024-02-26 16:00 | XMS_ITS | Encounter Summary ---
Author Organization [facility] Address [address] [place] [address]. [place] [address] Care Team Providers Care Power Line Installer And Repairer Name Role Phone Sánchez Kowalski APRN DRAFTER STRUCTURAL Unavailable Marlen Esposito MD Unavailable [phone] Unavailable Unavail able Karen Steel Unavailable Marlen Esposito MD Unavailable Karen Steel Unavailable Sánchez Kowalski APRN DRAFTER STRUCTURAL Unavailable Patricia Willoughby RD Unavailable Unavail able Ryan Cole MD Primary Care Provider Barbara Valdes MD Unavailable [phone] Reason for Visit * Auth/Cert Specialty Diagnoses / Procedures Referred By Sarthak house Referred To Contact Med Surg Diagnoses Pneumonia Ur 8a Med Surg [facility] [place] [address] Referral ID Status Reason Start Date Expiration Date Visits Re quested Visits Authorized [id number] 1 1 Encounter Details Date Type Department Care Team (Late st Contact Info) Description 11/11/2023 8:07 PM CDT - 11/18/2023 10:42 AM CDT Hospital Encounter [facility] [address] [facility] [place] [phone] Ashli Foreman MD [address] [place], [place] [id number] Martha Lim MD [address] [facility] [id number] [place] [id number] Manfred Hou MD [facility] HOSPITALIST [address] [place] [address] Bacteremia (Primary Dx); History of liver transplant (H); History of Clostridioides difficile colitis Discharge Disposition: Home or Self Care Social History Tobacco Use Types Packs/Day Years [...] on file documented as of this encounter Last Filed [...] Mass Index 24.81 11/11/2023 8:25 PM CDT documented in this encounter Discharge Summaries * Lorena Greene DO - 11/18/2023 10:42 AM CDT Dialysis Discharge Summary Brief [facility] Division of Nephrology Nephrology Discharge Dialysis Orders Bruce Singh Date of : 1955 [facility] Dialysis Unit: [facility] Primary Focus Puller: Date of Admission: 11/11/2023 Date of Discharge: 11/18/2023 Discharge Diagnosis: ICD-10-CM 1. Bacteremia R78.81 amoxicillin-clavulanate (AUGMENTIN) 500-125 MG tablet 2. History of liver transplant (H) Z94.4 azaTHIOprine (IMURAN) 50 MG tablet 3. History of Clostridioides difficile colitis Z86.19 vancomycin (VANCOCIN) 125 MG capsule Resume all previous dialysis orders with exception as noted below New Orders (if not applicable put NA): Estimated Dry Weight Challenged dry weight in hospital. Previous EDW 75 kg. Achieved weight 72.8 kg. Suggest targeting 72.5-73 kg. Dialysis Duration N/A Dialysis Access N/A Antibiotics (dose per dialysis, end date) Augmentin 500-125 mg tablet. Take 1 tablet daily (after dialysis on dialysis days) for total of 7 days (end date 11/25/23). Labs to be drawn at dialysis N/A Other major changes to dialysis prescription (e.g. Dialysate bath, heparin, blood flow rate, etc) N/A Medication changes (also fax the unit a copy of the discharge summary) N/A Name of physician completing this form: Lorena Greene DO * Ashli Foreman MD - 11/18/2023 8:03 AM CDT Images from the original note were not included. 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 Please schedule a follow-up visit with your transplant team at [facility]. You should discuss whether you should receive the Haemophilus influenza vaccine with your transplant team. Please schedule a follow-up visit with the transplant infectious disease team at [facility]. Transplant Team: [ ] Azathioprine is currently being held while on antibiotics. Please instruct him when to resume. [ ] Please have him follow up with Transplant ID to ensure resolution of H flu bacteremia. [ ] Please consider whether revaccination for H flu and/or other vaccinations are necessary given pending renal transplant workup Unresulted Labs Ordered in the Past 30 Days of this Admission Date and Time Order Name Status Description 11/18/2023 12:01 AM Everolimus by Tandem Mass Spectrometry In process 11/13/2023 4:25 PM Blood Culture Arm, Left Preliminary 11/13/2023 4:25 PM Blood Culture Hand, Left Preliminary These results will be followed up by hospitalist pool Discharge Disposition Discharged to home Condition at discharge: Stable Hospital Course Bruce Singh is a 68yoM with a history of liver transplant x2 (1998 and 2012 at [facility]) c/b 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 Sepsis Haemophilus pneumoniae bacteremia L lower lobe pneumonia History of recurrent C diff He presented on 11/09 with pleuritic chest pain and L flank pain dialysis. He was initially brought o [facility], where he was found to be febrile and blood cultures grew H pneumoniae. [facility] then [facility] on 11/10. CXR showed a LLL infiltrate consistent with pneumonia. Subsequent blood cultures have been negative. ID was consulted and recommended 7 days of IV antibiotics (Z osyn then CTX, EOT 11/16) followed by 7 days of Augmentin (500-125 mg daily, EOT 11/23). He should follow up with his Transplant ID team at [facility]. Due to his history of recurrent C diff, he was started on vancomycin 125 mg BID until 5 days after treatment of antibiotics (EOT 11/28) for C diff prophylaxis. His azathioprine is held while on antibiotics. History of liver transplant x2 (1998, 2012) History of autoimmune hepatitis History of hepatic artery thrombosis with ischemic cholangiopathy Transplant hepatology consulted. Recommended continuing everolimus and prednisone. Holding azathioprine while on antibiotics. History of refractory CMV He had been off treatment since 08/16. CMV quant was negative. ESRD on HD FSGS Nephrology consulted for inpatient dialysis. Resumed MWF dialysis schedule prior to discharge. HTN Continued home nifedipine and torsemide Hypothyroidism Continued home levothyroxine. Consultations This Hospital Stay PHARMACY TO DOSE [facility] NEPHROLOGY ESRD ADULT IP CONSULT INFECTIOUS DISEASE WEST BANK ADULT IP CONSULT GI HEPATOLOGY ADULT IP CONSULT CARE MANAGEMENT / SOCIAL WORK IP CONSULT PHARMACY TO DOSE VANCO Code Status Full Code Time Spent on this Encounter I, ASHLI FOREMAN MD, personally saw the patient today and spent greater than 30 minutes discharging this patient. ASHLI FOREMAN MD [facility] UN[address]A [facility] [id number] Physical Exam Vital Signs: Temp: 98.1 ??F (36.7 ??C) Temp src: Oral BP: (!) 147/77 Pulse: 88 Resp: 18 SpO2: 98 % O2 Device: None (Room air) Weight: 167 lbs 15.85 oz Constitutional: awake, alert, cooperative, no apparent distress, and appears stated age Eyes: extra-ocular muscles intact and sclera clear ENT: normocephalic, without obvious abnormality, MMM Respiratory: No increased work of breathing, good air exchange, clear to auscultation bilaterally, no crackles or wheezing Cardiovascular: regular rate and rhythm, normal S1 and S2, and soft systolic murmur. Trace bilateral lower extremity edema. GI: normal bowel sounds, soft, non-distended, and non-tender Skin: normal skin color, texture, turgor Neurologic: Awake, alert, moving all extremities, no focal deficits. Primary Care Physician Ryan Cole Discharge Orders Reason for your hospital stay You were hospitalized for having the bacteria Haemophilus influenza in your blood. We think this came from pneumonia (a lung infection). You have completed 7 days of IV antibiotics and you will need to complete 7 more days of oral antibiotics (starting Friday 11/17). Please take all doses of antibiotics even if you are feeling better. You should not take your azathioprine when taking Augmentin. Please contact your transplant team about when to restart azathioprine. You were also prescribed vancomycin to help prevent recurrence of your prior C diff infection. It is important to take all doses of vancomycin as prescribed. Please contact your transplant team to schedule follow-up with them and with the transplant infectious disease team at [facility], as we would like you to follow up with them to ensure that your infection has completely resolved. Activity Your activity upon discharge: activity as tolerated Follow Up and recommended labs and tests Follow up with you primary care provider 1-2 weeks after leaving the hospital for hospital follow-up. Please schedule a follow-up visit with your transplant team at [facility]. You should discuss whether youshould receive the Haemophilus influenza vaccine with your transplant team. Please schedule a follow-up visit with the transplant infectious disease team at [facility]. Diet Follow this diet upon discharge: Follow your regular diet (dialysis diet) Significant Results and Procedures Most Recent 3 BMP's: Recent Labs Lab Test 11/18/23 0625 11/17/23 0728 11/16/23 0640 NA 138 136 135 POTASSIUM 3.8 3.6 3.3* CHLORIDE 99 99 98 CO2 23 24 BUN 21.9 34.7* 18.9 CR 3.70* 4.76* 3.60* ANIONGAP 14 14 13 JUAQUIN 8.7* 8.3* 8.4* GLC 91 125* 98 Most Recent 2 LFT's: Recent Labs Lab Test 11/18/23 0625 11/17/23 0728 AST 53* 51* ALT 49 38 ALKPHOS 111 101 BILITOTAL 0.2 0.2 7-Day Micro Results Collected Updated Procedure Result Status 11/15/2023 1318 11/15/2023 1815 C. difficile Toxin B PCR with reflex to C. difficile Antigen and Toxins A/B EIA [[id number]] Stool from Per Rectum Final result Component Value C Difficile Toxin B by PCR Negative A negative result does not exclude actual disease due to C. difficile and may be due to improper collection, handling and storage of the specimen or the number of organisms in the specimen is below the detection limit of the assay. 11/13/2023 1641 11/17/2023 1917 Blood Culture Arm, Left [[id number]] Blood from Arm, Left Preliminary result Component Value Culture No growth after 4 days [P] 11/13/2023 1639 11/17/2023 1917 Blood Culture Hand, Left [[id number]] Blood from Hand, Left Preliminary result Component Value Culture No growth after 4 days [P] 11/13/2023 0717 11/13/2023 1702 Cytomegalovirus DNA by PCR, Quantitative [[id number]] Blood from Vein Final result Component Value Units CMV DNA IU/mL Not Detected IU/mL 11/12/2023 1500 11/12/2023 2150 Respiratory Panel PCR [[id number]] Swab from Nasopharyngeal Final result Component Value No component results 11/12/2023 1500 11/12/2023 2150 Respiratory Panel PCR, Nasopharyngeal [[id number]] Swab from Nasopharyngeal Final result Component Value Adenovirus Not Detected Coronavirus Not Detected This test detects Coronavirus 229E, HKU1, NL63 and OC43 but does not distinguish between them. It does not detect MERS ( Respiratory Syndrome), SARS (Severe Acute Respiratory Syndrome) or 2019-nCoV (Novel 2019) Coronavirus. Human Metapneumovirus Not Detected Human Rhin/Enterovirus Not Detected Influenza A Not Detected Influenza A, H1 Not Detected Influenza A 2009 H1N1 Not Detected Influenza A, H3 Not Detected Influenza B Not Detected Parainfluenza Virus 1 Not Detected Parainfluenza Virus 2 Not Detected Parainfluenza Virus 3 Not Detected Parainfluenza Virus 4 Not Detected Respiratory Syncytial Virus A Not Detected Respiratory Syncytial Virus B Not Detected Chlamydia Pneumoniae Not Detected Mycoplasma Pneumoniae Not Detected 11/12/2023 1427 11/17/2023 1701 Blood Culture Hand, Left [[id number]] Blood from Hand, Left Final result Component Value Culture No Growth 11/12/2023 1427 11/15/2023 0748 Blood Culture Hand, Left [[id number]] (Abnormal) Blood from Hand, Left Final result Component Value Culture Positive on the 1st day of incubation Staphylococcus capitis 1 of 1 bottles Susceptibility Staphylococcus capitis DAVID Ciprofloxacin <=0.5 ug/mL Susceptible Clindamycin 0.25 ug/mL Susceptible Daptomycin 1 ug/mL Susceptible Doxycycline <=0.5 ug/mL Susceptible Erythromycin <=0.25 ug/mL Susceptible Gentamicin <=0.5 ug/mL Susceptible Levofloxacin 0.25 ug/mL Susceptible Oxacillin 0.5 ug/mL Susceptible [1] Tetracycline <=1 ug/mL Susceptible Vancomycin 1 ug/mL Susceptible [1] Oxacillin susceptible isolates are susceptible to cephalosporins (example: cefazolin and cephalexin) and beta lactam combination agents. Oxacillin resistant isolates are resistant to these agents. Susceptibility Comments Staphylococcus capitis Antibiotics listed as No Interpretation have no regulatory guidelines for susceptibility/resistance available. 11/12/2023 1427 11/13/2023 1841 [employer] GP Panel [[id number]] (Abnormal) Blood from Hand, Left Final result Component Value Staphylococcus species Detected Positive for coagulase-negative Staphylococci, other than Staphylococcus epidermidis and Staphylococcus lugdunensis, by POWWOW multiplex nucleic acid test. Coagulase-negative Staphylococci are the most common venipuncture or collection associated skin contaminants grown in blood cultures. Final id entification and antimicrobial susceptibility testing will be verified by standard methods. Staphylococcus aureus Not Detected Staphylococcus epidermidis Not Detected Staphylococcus lugdunensis Not Detected Enterococcus faecalis Not Detected Enterococcus faecium Not Detected Streptococcus species Not Detected Streptococcus agalactiae Not Detected Streptococcus anginosus group Not Detected Streptococcus pneumoniae Not Detected Streptococcus pyogenes Not Detected Listeria species Not Detected 11/12/2023 1249 11/12/2023 1542 Streptococcus pneumoniae antigen [[id number]] Urine, Midstream Final result Component Value Streptococcus pneumoniae antigen Negative A negative Streptococcus pneumoniae antigen result does not rule out infection with Streptococcus pneumoniae. 11/12/2023 1249 11/12/2023 1542 Legionella pneumophila antigen urine [[id number]] Urine, Midstream Final result Component Value Legionella pneumophila serogroup 1 urinary antigen Negative Suggests no recent or current infection. Infection due to Legionella cannot be ruled out, since other serogroups and species may cause disease, antigen may not be present in urine in early infection,and the level of antigen present in the urine may be below detectable limits of the test. 11/12/2023 1012 11/12/2023 1335 MRSA MSSA PCR, Nasal Swab [[id number]] Swab from Nares, Bilateral Final result Component Value MRSA Target DNA Negative SA Target DNA Negative 11/12/2023 1007 11/14/2023 0920 Respiratory Aerobic Bacterial Culture with Gram Stain [[id number]] (Abnormal) Sputum from Expectorate Final result Component Value Culture 1+ Normal Efrem Gram Stain Result >25 PMNs/low power field 1+ Gram negative bacilli <10 Squamous epithelial cells/low power field 11/11/2023 2327 11/12/2023 0023 Asymptomatic Influenza A/B, RSV, & SARS-CoV2 PCR (COVID-19) Nasopharyngeal [[id number]] Swab from Nasopharyngeal Final result Component Value Influenza A PCR Negative Influenza B PCR Negative RSV PCR Negative SARS CoV2 PCR Negative NEGATIVE: SARS-CoV-2 (COVID-19) RNA not detected, presumed negative. 11/11/2023 2148 11/16/2023 2331 Blood Culture Hand, Left [[id number]] Blood from Hand, Left Final result Component Value Culture No Growth 11/11/2023 2147 11/16/2023 2331 Blood Culture Hand, Left [[id number]] Blood from Hand, Left Final result Component Value Culture No Growth , Results for orders placed or performed during the hospital encounter of 11/11/23 XR Chest 2 Views Narrative Exam: XR CHEST 2 VIEWS, 11/16/2023 11:20 AM Indication: Hx of H flu pneumonia, please eval for pleural effusion Comparison: 06/02/2023 Findings: Upright PA and lateral views of the chest. Trachea is midline. Cardiomediastinal silhouette is within normal limits. Slightly increased bibasilar streaky opacities. No appreciable pneumothorax. Slight blunting of the right costophrenic angle suspected on the lateral radiograph, new from prior radiograph, suggests trace effusion. Visualized portions of the upper abdomen are unremarkable. No acute osseous abnormality. Impression Impression: 1. Slightly increased bibasilar streaky opacities, suggestive of atelectasis. 2. Possible trace right pleural effusion. I have personally reviewed the examination and initial interpretation and I agree with the findings. JOVANA HAGEN MD Discharge Medications Current Discharge Medication List START taking these medications Details amoxicillin-clavulanate (AUGMENTIN) 500-125 MG tablet Take 1 tablet by mouth daily for 7 days Qty: 7 tablet, Refills: 0 Comments: Take in the evening after dialysis Associated Diagnoses: Bacteremia vancomycin (VANCOCIN) 125 MG capsule Take 1 capsule (125 mg) by mouth 2 times daily for 12 days Qty: 24 capsule, Refills: 0 Associated Diagnoses: History of Clostridioides difficile colitis CONTINUE these medications which have CHANGED Details azaTHIOprine (IMURAN) 50 MG tablet Take 1 tablet (50 mg) by mouth 2 times daily Associated Diagnoses: History of liver transplant (H) CONTINUE these medications which have NOT CHANGED Details atorvastatin (LIPITOR) 10 MG tablet Take 10 mg by mouth at bedtime B Vpbaulx-Q-Vgfjq Acid (DAVE-DAVID RX) 1 mg TABS Take 1 tablet by mouth daily (with dinner) budesonide (PULMICORT) 0.5 MG/2ML neb solution Mcmillan 0.5 mg in nostril ADD 1 RESPULE TO 8 OZ SALINEAND IRRIGATE EACH SIDE OF NOSE TWICE DAILY DIRECTED co-enzyme Q-10 100 MG CAPS capsule Take 100 mg by mouth daily everolimus (ZORTRESS) 0.5 MG tablet Take 1 mg by mouth 2 times daily ipratropium (ATROVENT) 0.03 % nasal spray INHALE 2 SPRAYS IN EACH NOSTRIL TWICE DAILY, UP TO FIVE TIMES DAILY NEEDED lamoTRIgine (LAMICTAL) 200 MG tablet Take 200 mg by mouth 2 times daily levothyroxine (SYNTHROID/LEVOTHROID) 75 MCG tablet Take 75 mcg by mouth daily NIFEdipine ER OSMOTIC (PROCARDIA XL) 30 MG 24 hr tablet Take 90 mg by mouth daily predniSONE (DELTASONE) 5 MG tablet Take 5 mg by mouth daily sodium chloride inhalant 7 % NEBU neb solution USE AFTER NEBULIZATION WITH DUONEB IN THE MORNING AND AT NIGHT torsemide (DEMADEX) 100 MG tablet Take 100 mg by mouth 2 times daily amoxicillin (AMOXIL) 500 MG capsule TAKE 4 CAPSULES BY MOUTH BEFORE DENTAL APPOINTMENT loratadine (CLARITIN) 10 MG tablet Take 10 mg by mouth at bedtime montelukast (SINGULAIR) 10 MG tablet Take 1 tablet by mouth at bedtime Allergies Allergies Allergen Reactions Cefixime Diarrhea C Diff Citalopram Other (See Comments) Other Reaction(s): Intolerance-Can't Take, Other (see comments) Liver transplant michell Michell, Liver transplant Ibuprofen Other (See Comments) Other Reaction(s): Other (see comments) PT SHOULD NOT HAVE THIS MED R/T LIVER TRANSPLANT Olanzapine Other Reaction(s): Muscle Weakness, Other (see comments) Joint pain Quetiapine Swelling and Other (See Comments) Other Reaction(s): Intolerance-Can't Take, Other (see comments) Liver transplant Muscle pain and swelling Ciprofloxacin Other (See Comments) Other Reaction(s): Intolerance-Can't Take, Other (see comments) Liver transplant Tendon pain Tendon pain, Liver transplant Erythromycin Base Other (See Comments) Due to medications, interacts with transplant medications Due to medications, interacts with transplant medications Aspirin Other (See Comments) Liver transplant Erythromycin Other (See Comments) interacts with meds documented in this encounter Medications at Time of Discharge Medication Sig Dispensed Refills Start Date End Date amoxicillin (AMOXIL) 500 MG capsule TAKE 4 CAPSULES BY MOUTH BEFORE DENTAL APPOINTMENT 08/08/2022 atorvastatin (LIPITOR) 10 MG tablet Take 10 mg by mouth at bedtime azaTHIOprine (IMURAN) 50 MG tabletIndications:His tory of liver transplant (H) Take 1 tablet (50 mg) by mouth 2 times daily 11/25/2023 B Plyxpsk-H-Qrqkp Acid (DAVE-DAVID RX) 1 mg TABS Take 1 tablet by mouth daily (with dinner) 09/08/2021 co-enzyme Q-10 100 MG CAPS capsule Take 100 mg by mouth daily everolimus (ZORTRESS) 0.5 MG tablet Take 1 mg by mouth 2 times daily ipratropium (ATROVENT) 0.03 % nasal spray INHALE 2 SPRAYS IN EACH NOSTRIL TWICE DAILY, UP TO FIVE TIMES DAILY NEEDED 03/17/2023 lamoTRIgine (LAMICTAL) 200 MG tablet Take 200 mg by mouth 2 times daily levothyroxine (SYNTHROID/LEVOTHROID ) 75 MCG tablet Take 75 mcg by mouth daily 08/07/2022 loratadine (CLARITIN) 10 MG tablet Take 10 mg by mouth at bedtime 03/27/2023 montelukast (SINGULAIR) 10 MG tablet Take 1 tablet by mouth at bedtime 05/29/2023 NIFEdipine ER OSMOTIC (PROCARDIA XL) 30 MG 24 hr tablet Take 90 mg by mouth daily predniSONE (DELTASONE) 5 MG tablet Take 5 mg by mouth daily sodium chloride inhalant 7 % NEBU neb solution USE AFTER NEBULIZATION WITH DUONEB IN THE MORNING AND AT NIGHT torsemide (DEMADEX) 100 MG tablet Take 100 mg by mouth 2 times daily 03/18/2023 03/17/2024 amoxicillin-clavulana te (AUGMENTIN) 500-125 MG tabletIndications:Rica teremia Take 1 tablet by mouth daily for 7 days 7 tablet 11/18/2023 11/25/2023 budesonide (PULMICORT) 0.5 MG/2ML neb solution Mcmillan 0.5 mg in nostril ADD 1 RESPULE TO 8 OZ SALINE AND IRRIGATE EACH SIDE OF NOSE TWICE DAILY DIRECTED 12/10/2022 12/10/2023 vancomycin (VANCOCIN) 125 MG capsuleIndications:C diff prophylaxis Take 1 capsule (125 mg) by mouth 2 times daily for 12 days 24 capsule 11/18/2023 11/30/2023 documented as of this encounter Progress Notes * Joni Larson, RN - 11/18/2023 10:42 AM CDT Care Management Discharge Note Discharge Date: 11/18/2023 Discharge Disposition: Dialysis Services, Home Discharge Services: None Discharge DME: (No new DME anticipated) Discharge Transportation: family or friend will provide (sister will provide transport home) Private pay costs discussed: Not applicable Does the patient's insurance plan have a 3 day qualifying hospital stay waiver? No PAS Confirmation Code: N/A Patient/family educated on Medicare website which has current facility and service quality ratings:no (N/A) Education Provided on the Discharge Plan: Yes (not by this typewriter repairer) Persons Notified of Discharge Plans: pt (not by this typewriter repairer); dialysis center Patient/Family in Agreement with the Plan: yes Handoff Referral Completed: Yes - external Additional Information: Outpatient Dialysis Center: [facility] [address] [place] [address] Chart review indicates pt has switched to oral abx. [facility] referral cancelled. 10:00am - Case discussed in rounds this AM. Per provider, pt has been discharged and has already left unit. Called [facility], spoke w/ Clarita, informed her of discharge today. She stated they need a discharge summary and, if changes were made to orders, will need orders as well. Confirmed fax number. No further questions/concerns for this typewriter repairer. 10:53am - Orders sent to [facility] via [employer] A/S tab. [facility] to send discharge summary when it is signed by provider. 3:30pm - Reached out to provider, notified her that discharge summary needs to be sent to dialysis center, requested completion of note when possible. Provider acknowledged, also advised this typewriter repairer to send dialysis discharge summary from ranger aide. Routed ranger aide's discharge summary and medicine provider's discharge summary to [facility]'s fax number. Care mgmt available as needed. TOAN [facility] Units 8M/S & 10 ICU Reachable on [employer] - Search by name or search RNCC * Sharlene Troy RN - 11/18/2023 3:02 AM CDT Goal Outcome Evaluation: Overall Patient Progress: no change from prior shift Overall Patient Progress: no change from prior shift Shift [id number] Pt VSS. Pt A&Ox 4. Denies pain, no SOB, and chest pain. Denies N/V. Pt stated last BM on 11/16 and no difficulty urinating. Pt slept through the night. Pt has no other concern noted. Pt is pleasant and looking forward to discharge today. * Caryl No RN - 11/17/2023 5:22 PM CDT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 MG tablet Take 10 mg by mouth at bedtime 11/10/2023 Reported, Patient montelukast (SINGULAIR) 10 MG tablet Take 1 tablet by mouth at bedtime 11/10/2023 Reported, Patient Current Meds Current Facility-Administered Medications Medication Dose Route Frequency Provider Last Rate Last Admin atorvastatin (LIPITOR) tablet 10 mg 10 mg Oral Daily Manfred Hou MD 10 mg at 11/16/23 0833 [Held by provider] azaTHIOprine (IMURAN) tablet 50 mg 50 mg Oral BID Manfred Hou MD 50 mg at 11/12/23 0800 everolimus (ZORTRESS) tablet 1 mg 1 mg Oral BID Manfred Hou MD 1 mg at 11/16/23 0837 heparin ANTICOAGULANT injection 5,000 Units 5,000 Units Subcutaneous Q8H Manfred Hou MD 5,000 Units at 11/16/23 0609 lamoTRIgine (LaMICtal) tablet 200 mg 200 mg Oral BID Manfred Hou MD 200 mg at 11/16/23 0834 levothyroxine (SYNTHROID/LEVOTHROID) tablet 75 mcg 75 mcg Oral Daily Manfred Hou MD 75 mcg at 11/16/23 0834 Lidocaine (LIDOCARE) 4 % Patch 1 patch 1 patch Transdermal Q24h Manfred Hou MD 1 patch at 11/11/23 2225 loratadine (CLARITIN) tablet 10 mg 10 mg Oral Daily Martha Lim MD 10 mg at 11/16/23 0835 montelukast (SINGULAIR) tablet 10 mg 10 mg Oral At Bedtime Manfred Hou MD 10 mg at 11/15/23 2145 multivitamin RENAL (RENAVITE RX/NEPHROVITE) tablet 1 tablet 1 tablet Oral Daily with supper Manfred Hou MD 1 tablet at 11/15/23 1627 NIFEdipine ER OSMOTIC (PROCARDIA XL) 24 hr tablet 90 mg 90 mg Oral Daily Martha Lim MD 90 mg at 11/15/232000 piperacillin-tazobactam (ZOSYN) 2.25 g vial to attach to NS 100 ml bag 2.25 g Intravenous Q6H aMnfred Hou MD 200 mL/hr at 11/16/23 0838 2.25 g at 11/16/23 0838 predniSONE (DELTASONE) tablet 5 mg 5 mg Oral Daily Manfred Hou MD 5 mg at 11/16/23 0835 sodium chloride (PF) 0.9% PF flush 3 mL 3 mL Intracatheter Q8H Manfred Hou MD 3 mL at 11/15/232104 torsemide (DEMADEX) tablet 100 mg 100 mg Oral BID Manfred Hou MD 100 mg at 11/16/23 0835 traZODone (DESYREL) tablet 50 mg 50 mg Oral At Bedtime Miguel Vazquez MD 50 mg at 11/16/23 0229 vancomycin (VANCOCIN) capsule 125 mg 125 mg Oral BID Ashli Foreman MD 125 mg at 11/16/23 0835 Infusion Meds Current Facility-Administered Medications Medication Dose Route Frequency Provider Last Rate Last Admin ALLERGIES: Allergies Allergen Reactions Cefixime Diarrhea C Diff Citalopram Other (See Comments) Other Reaction(s): Intolerance-Can't Take, Other (see comments) Liver transplant michell Michell, Liver transplant Ibuprofen Other (See Comments) Other Reaction(s): Other (see comments) PT SHOULD NOT HAVE THIS MED R/T LIVER TRANSPLANT Olanzapine Other Reaction(s): Muscle Weakness, Other (see comments) Joint pain Quetiapine Swelling and Other (See Comments) Other Reaction(s): Intolerance-Can't Take, Other (see comments) Liver transplant Muscle pain and swelling Ciprofloxacin Other (See Comments) Other Reaction(s): Intolerance-Can't Take, Other (see comments) Liver transplant Tendon pain Tendon pain, Liver transplant Erythromycin Base Other (See Comments) Due to medications, interacts with transplant medications Due to medications, interacts with transplant medications Aspirin Other (See Comments) Liver transplant Erythromycin Other (See Comments) interacts with meds REVIEW OF SYSTEMS: A comprehensive of systems was negative except as noted above. PHYSICAL EXAM: Temp Av.8 ??F (36.6 ??C) Min: 97.6 ??F (36.4 ??C) Max: 98 ??F (36.7 ??C) Pulse Av Min: 72 Max: 76 Resp Av Min: 16 Max: 16 SpO2 Av.5 % Min: 94 % Max: 95 % BP 126/79 (BP Location: Left arm) Pulse 72 Temp 97.7 ??F (36.5 ??C) (Oral) Resp 16 Ht 1.753m (5' 9) Wt 72.8 kg (160 lb 7.9 oz) SpO2 98% BMI 23.70 kg/m?? Admit Weight: 78 kg (172 lb) GENERAL APPEARANCE: resting in bed, NAD EYES: No scleral icterus, EOMI Pulmonary: unlabored on RA CV: RRR, no edema in LEs GI: soft, nontender MS: no evidence of inflammation in joints, no muscle tenderness SKIN: no rash, warm, dry, no cyanosis NEURO: face symmetric, no focal deficits Access: [facility] LABS: I have reviewed the following labs: CMP Recent Labs Lab 11/16/23 0640 11/15/23 0747 11/14/23 0556 11/13/23 0717 NA 135 137 136 133* POTASSIUM 3.3* 3.6 3.7 3.7 CHLORIDE 98 98 98 94* CO2 21* ANIONGAP 13 16* 12 18* GLC 98 142* 89 84 BUN 18.9 33.8* 21.9 56.9* CR 3.60* 4.79* 3.77* 6.08* GFRESTIMATED 18* 12* 17* 9* JUAQUIN 8.4* 8.2* 8.5* 7.6* PHOS -- -- -- 6.8* PROTTOTAL 6.3* 6.4 6.2* 6.2* ALBUMIN 3.6 3.6 3.6 3.6 BILITOTAL 0.3 0.3 0.3 0.3 ALKPHOS 105 103 105 109 AST 40 24 19 20 ALT 25 16 13 14 CBC Recent Labs Lab 11/16/23 0640 11/15/23 0747 11/14/23 0556 11/13/23 0717 HGB 10.7* 10.2* 10.0* 9.4* WBC 4.3 3.8* 3.8* 5.4 RBC 3.74* 3.61* 3.55* 3.32* HCT 34.0* 33.1* 32.3* 29.7* MCV 91 92 91 90 MCH 28.6 28.3 28.2 28.3 MCHC 31.5 30.8* 31.0* 31.6 RDW 17.8* 17.5* 17.5* 17.1* PLT 251 249 202 201 INRNo lab results found in last 7 days. ABGNo lab results found in last 7 days. URINE STUDIES No lab results found. No lab results found. PTH No lab results found. IRON STUDIES No lab results found. IMAGING: All imaging studies reviewed by me. Lorena Greene DO I spent 35 minutes on this date of encounter reviewing chart, evaluating patient, formulating plan of care, and documenting. * Ozzie Cortes MD - 11/16/2023 8:44 AM CDT Images from the original note were not included. General Infectious Disease Service - [facility] Patient: Bruce Singh, Date of 1955, Date of Admission: 11/11/2023 Date of Visit: 11/16/2023 Assessment and Recommendations: Problem List: Haemophilus influenzae bacteremia (+11/09 in 1/2 sets at OSH - susceptibilities in process) LLL consolidation c/f community acquired pneumonia vs aspiration Left kidney subcapsular hematoma s/p IR embolization 09/14/23, possible inflammatory stranding on OSH CT Bronchiectasis ESRD on HD Liver transplant status on IS (AZA, everolimus, prednisone 5 mg). 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 Most recently on maribavir. Off therapy since 07/2023. CMV 11/12 not detected. 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 Could not afford the co- pay for Posaconazole. Treated with voriconazole c/b wei, changed to isavuconazole. 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 Found with LLL consolidation concerning for pneumonia and blood cultures positive 11/09 in 1/2 sets to date for GNB now identified as Haemophilus influenzae. Negative COVID/flu/RSV x2, urine antigens for Strep/Legionella, and full RVP panel. Sputum culture from 11/11 had Gram stain with GNB and culture with normal efrem. Started on PO doxycycline for atypical coverage (erythromycin allergy in chart, interact with transplant meds) and started on IV Zosyn on 11/10GNB. MRSA nares negative, so stopped IV vancomycin. Now the GNB is identified as Haemophilus influenzae so most likely respiratory source. We continue to await susceptibilities. [facility] sent plate to [facility] lab ([phone]). CT chest is from outside hospital and read showed LLL consolidation. No report of pleural effusion. He also has L renal subcasular hematoma that seems stable in size, but more perirenal stranding. Flank pain is stable. No urinary symptoms, UA noninfectious appearing, and Ucx at OSH with no growth. Repeat blood culture from 11/10 is negative to date. Blood culture from 11/11 had one isolated bottle positive for Staphylococcus capitis (likely contaminant). Repeat blood culture from 11/12 negative to date. Medicine team informed today that the patient ishaving loose stools on 11/14. C diff obtained and negative. Discussed with transplant ID team (as no transplant ID MD on [facility]) for additional recommendations. He has history of CMV viremia and has been off antiviral therapy since July 2023 - recommended to obtained CMV viremia -> CMV not detected 11/12. No role for antiviral. He is not on any bacterial or viral prophylaxis. Recommendations: Please stop zosyn and start ceftriaxone 2 grams IV q 24h - Awaiting susceptibilities from H influenzae ( [facility] sent plate to [facility] lab - [phone])and beta lactamase testing was negative. Ceftriaxone is an adequate empiric coverage for H influenzae. Anticipate completion of at least 7 days IV (through 11/17 if no additional blood culture become positive) and then transition to augmentin 500/125 mg po daily (after dialysis on dialysis days) foranother 7 days (end date 11/25/23) Doxycycline stopped on 11/14 Please obtain a CXR for completeness, to assure that there was no development of pleural effusion since it is not uncommon with Haemophilus influenzae infection. Outside CT chest report does not describe pleural effusion (I do not see image in PACS) however it was performed on 11/10. - CXR obtained on 11/15 and showed atelectasis and possible trace right pleural effusion, but not a significant pleural effusion Agree with C. diff prophylaxis with oral vancomycin (125 mg po q 12h) until 5 after antibiotics arestopped After completion of antimicrobial treatment it will be important to discuss if he will need any updated dose of Haemophilus influenzae vaccine. This will need to be discussed with his primary care provider and his transplant ID provider from [facility] Please make arrangement for follow up with transplant ID providers at [facility] I will sign off at this moment. Please see sign off recommendations above. Please call us back if any question or need. Recommendations discussed with medicine OZZIE CORTES MD Date of Service: 11/16/23 Pager: Physical Exam: BP 126/79 (BP Location: Left arm) Pulse 72 Temp 97.7 ??F (36.5 ??C) (Oral) Resp 16 Ht 1.753m (5' 9) Wt 72.8 kg (160 lb 7.9 oz) SpO2 98% BMI 23.70 kg/m?? Exam: GENERAL: Well-developed, well-nourished, not in acute distress. HEAD: Normocephalic and atraumatic ENT: No hearing impairment, oral mucous membranes moist EYES: Eyes grossly normal to inspection LUNGS: Clear to auscultation - no rales, rhonchi or wheezes CARDIOVASCULAR: Regular rate and rhythm, normal S1 S2, no murmur ABDOMEN: Soft, nontender EXT: Extremities warm and without edema. MS: No gross musculoskeletal defects noted, no edema SKIN: No acute rashes or suspicious lesions NEUROLOGIC: Grossly nonfocal. Mentation intact and speech normal PSYCHIATRIC: Mood stable, mentation appears normal, affect normal Laboratory Data: Creatinine Date Value Ref Range Status 11/16/2023 3.60 (H) 0.67 - 1.17 mg/dL Final 11/15/2023 4.79 (H) 0.67 - 1.17 mg/dL Final 11/14/2023 3.77 (H) 0.67 - 1.17 mg/dL Final 11/13/2023 6.08 (H) 0.67 - 1.17 mg/dL Final 11/12/2023 5.64 (H) 0.67 - 1.17 mg/dL Final WBC Count Date Value Ref Range Status 11/16/2023 4.3 4.0 - 11.0 10e3/uL Final 11/15/2023 3.8 (L) 4.0 - 11.0 10e3/uL Final 11/14/2023 3.8 (L) 4.0 - 11.0 10e3/uL Final 11/13/2023 5.4 4.0 - 11.0 10e3/uL Final 11/12/2023 4.6 4.0 - 11.0 10e3/uL Final Hemoglobin Date Value Ref Range Status 11/16/2023 10.7 (L) 13.3 - 17.7 g/dL Final Platelet Count Date Value Ref Range Status 11/16/2023 251 150 - 450 10e3/uL Final Lab Results Component Value Date NA 135 11/16/2023 BUN 18.9 11/16/2023 CO2 24 11/16/2023 No results found for: CRP * Ashli Foreman MD - 11/16/2023 7:49 AM CDT [facility] Medicine Progress Note - Hospitalist Service, GOLD TEAM 22 Date of Admission: 11/11/2023 Assessment & Plan Bruce Singh is a 68 y/o man who has a past medical history of liver transplant x2 (1998 and 2012 at [facility]) c/b 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 Changes Today; - Discussed with ID. Will discontinue Zosyn after this afternoon's dose and start CTX x2 doses (EOT11/16) then switch to Augmentin 500-125 mg daily x7 days (to be taken after dialysis on dialysis days) to complete 14-day course. CXR showed potential trace R pleural effusion. - Discussed with Neph, will plan on dialysis tomorrow to resume home MWF schedule. - C diff negative. Start prophylactic dose of PO vanc 125mg BID (11/15- ). - Duoneb x1 for wheezing then q4h prn. Start incentive spirometry. Sepsis Haemophilus pneumoniae bacteremia Left lower lobe pneumonia Pt had sudden onset pleuritic chest pain and L flank pain while at dialysis on 11/09. Was initially brought to [facility] where he was found to be febrile to 104F and tachycardic. Infectious work up initiated and he was started on broad spectrum abx. Transferred to [facility] and then [facility] due tohistory of liver transplant. Per initial report, blood cultures growing GNR. CXR with LLL infiltrate concerning for pneumonia. On 11/14, positive blood culture speciated at [facility] to Haemophilus influenzae, sent to [facility] for sensitivity testing, which likely will not be back for a week. Discussed with ID and will tentatively plan to complete 7 days IV antibiotics and then transition to PO to complete 14 days total. - ID consulted, appreciate recs - Discontinue zosyn today (EOT 11/15) - Start ceftriaxone to complete 7-day course of IV antibiotics (EOT 11/16) - After completion of CTX, will start Augmentin 500-125 mg daily x7 days - To be taken after dialysis on dialysis days - Follow blood cultures - 11/09 - Haemophilus influenzae in 1/2 bottles (speciated 11/14) - 11/11 - GPC in 1/2 bottles, verigene with staph capitis. Likely contaminant. - 11/12 - NGTD - Sputum culture with normal efrem. Gram stain with 1+ GNR Loose stools History of recurrent C diff Pt noting looser stools over past few days. Having 1-2 episodes a day. Last episode of C diff per chart review was 2020. Discussed with ID. - C diff PCR negative - Start prophylactic PO vanc 125mg BID until 5 days after completion of antibiotics (11/15- ) +GPC in blood culture 1 of 2 bottles from 11/11 growing GPCs with verigene positive for coag-negative staph. Highest suspicion for contaminant. Restarted on vancomycin pending speciation, stopped 11/14. - Stop vancomycin (11/12-) - Repeat blood cultures NGTD Left kidney subcapsular hematoma: Hospitalized for abdominal pain at [facility] on 09/13 and was found to have active L RP bleed. Underwent IR embolization of inferior branch of L renal artery. CT at [facility] noted 4.8 x 7.3 x 15.3 subcapsular hematoma extending into the retroperitoneum which appeared chronic and stable from prior. - Monitor hgb Hx of liver tx x2 (1998, 2012) Hx of autoimmune hepatitis Hx of hepatic artery thrombosis with ischemic cholangiopathy - Transplant hepatology consult, appreciate recs - Continue everolimus and prednisone - Hold [employer] azathioprine while on antibiotics History of refractory CMV Off treatment since 08/16 - ID consulted, appreciate recs - CMV quant negative End-stage renal disease on dialysis FSGS - Hemodialysis per Nephrology, appreciate recs - Will resume MWF schedule tomorrow Hypertension: - Patient to continue nifedipine and torsemide. Hypothyroidism: - Patient is on levothyroxine. DVT Prophylaxis: Subcutaneous heparin Auguste Catheter: Not present Lines: None Cardiac Monitoring: None Code Status: Full Code Diet: Regular Diet Adult DVT Prophylaxis: Heparin SQ Auguste Catheter: Not present Lines: None Cardiac Monitoring: None Code Status: Full Code Clinically Significant Risk Factors # Hypokalemia: Lowest K = 3.3 mmol/L in last 2 days, will replace as needed # Hypocalcemia: Lowest Ca = 8.2 mg/dL in last 2 days, will monitor and replace as appropriate # Hypertension: Noted on problem list # Financial/Environmental Concerns: none Disposition Plan Medically Ready for Discharge: Anticipated in 2-4 Days ASHLI FOREMAN MD Hospitalist Service, GOLD TEAM [address] [place] [address] Securely message with [employer] (more info) Text page via [facility] Paging/Directory See signed in provider for up to date coverage information Interval History No acute events overnight. He says that he feels better today. He is still having a fair amount of coughing and is bringing up sputum at times. He is not having difficulty breathing. Physical Exam Vital Signs: Temp: 98 ??F (36.7 ??C) Temp src: Oral BP: (!) 148/74 Pulse: 79 Resp: 16 SpO2: 99 % [id number]: None (Room air) Weight: 160 lbs 7.92 oz General Appearance: Awake, alert, sitting comfortably in bed in no acute distress. Respiratory: Few scattered crackles and wheezes in L lower lung field. Comfortable work of breathing. Cardiovascular: RRR. No m/r/g. Trace bilateral lower extremity edema GI: Soft. Non-tender. Non-distended. Active bowel sounds Skin: No visible rashes or lesions. Other: AOx4. Moving all extremities. Normal mood and affect. Medical Decision Making 60 MINUTES SPENT BY ME on the date of service doing chart review, history, exam, documentation & further activities per the note. MANAGEMENT DISCUSSED with the following over the past 24 hours: ID Data I have personally reviewed the following data over the past 24 hrs: 4.3 \ 10.7 (L) / 251 135 98 18.9 / 98 3.3 (L) 24 3.60 (H) \ ALT: 25 AST: 40 AP: 105 TBILI: 0.3 ALB: 3.6 TOT PROTEIN: 6.3 (L) LIPASE: N/A Imaging results reviewed over the past 24 hrs: No results found for this or any previous visit (from the past 24 hour(s)). * Ozzie Cortes MD - 11/15/2023 2:49 PM CDT Images from the original note were not included. General Infectious Disease Service - [facility] Patient: Bruce Singh, Date of 1955, Date of Admission: 11/11/2023 Date of Visit: 11/15/2023 Assessment and Recommendations: Problem List: Haemophilus influenzae bacteremia (+11/09 in 1/2 sets at OSH - susceptibilities in process) LLL consolidation c/f community acquired pneumonia vs aspiration Left kidney subcapsular hematoma s/p IR embolization 09/14/23, possible inflammatory stranding on OSH CT Bronchiectasis ESRD on HD Liver transplant status on IS (AZA, everolimus, prednisone 5 mg). 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 Most recently on maribavir. Off therapy since 07/2023. CMV 11/12 not detected. 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 Could not afford the co- pay for Posaconazole. Treated with voriconazole c/b wei, changed to isavuconazole. 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 Found with LLL consolidation concerning for pneumonia and blood cultures positive 11/09 in 1/2 sets to date for GNB now identified as Haemophilus influenzae. Negative COVID/flu/RSV x2, urine antigens for Strep/Legionella, and full RVP panel. Pending sputum culture with GNB. Remains on PO doxycycline for atypical coverage (erythromycin allergy in chart, interact with transplant meds) and continue IV Zosyn for now to cover GNB. MRSA nares negative, so stopped IV vancomycin. Now the GNB is identified as Haemophilus influenzae so most likely respiratory source. We continue to await susceptibilities. [facility] sent plate to [facility] lab ([phone]). CT chest is from outside hospital and read showed LLL consolidation. No report of pleural effusion. He also has L renal subcasular hematoma that seems stable in size, but more perirenal strandin g. Flank pain is stable. No urinary symptoms, UA noninfectious appearing, and Ucx at OSH with no growth. Repeat blood culture from 11/10 is negative to date. Blood culture from 11/11 had one isolated bottle positive for Staphylococcus capitis (likely contaminant). Repeat blood culture from 11/12 negative to date. Medicine sydnie otoole informed today that the patient is having loose stools. C diff obtained. Discussed with transplant ID team (as no transplant ID MD on [facility]) for additional recommendations. He has history of CMV viremia and has been off antiviral therapy since July 2023 - recommended to obtained CMV viremia -> CMV not detected 11/12. No role for antiviral. He is not on any bacterial or viral prophylaxis. Recommendations: Please continue zosyn today. Anticipate transitioning to ceftriaxone 2 grams IV q 24h tomorrow if no additional growth in outside or in house cultures - Awaiting susceptibilities from H influenzae ( [facility] sent plate to [facility] lab - [phone]). However ceftriaxone is an adequate empiric coverage for H influenzae. Anticipate completion of at least 7 days IV (through 11/17 if no additional blood culture become positive) and then transition tooral antibiotics (likely augmentin) for another 7 days (end date 11/25/23) Doxycycline can be stopped Awaiting susceptibilities from H influenzae, however [facility] sent plate to [facility] lab ([phone]) for identification. Agree with C diff testing. If positive then oral vancomycin can be started (125 mg po q 6h) for 10-14 days. If negative, prophylactic oral vancomycin can be started (125 mg po q 12h) until 5 after antibiotics are stopped After completion of antimicrobial treatment it will be important to discuss if he will need any updated dose of Haemophilus influenzae vaccine. This will need to be discussed with his primary care provider and his transplant ID provider from [facility] Recommendations discussed with medicine The General ID team will continue to follow this patient. Please feel free to call with any questions. OZZIE CORTES MD Date of Service: 11/15/23 Pager: [phone] Physical Exam: BP (!) 165/100 (BP Location: Left arm, Patient Position: Sitting, Cuff Size: Adult Regular) Pulse60 Temp 97.8 ??F (36.6 ??C) (Oral) Resp (!) 9 Ht 1.753 m (5' 9) Wt 72.8 kg (160 lb 7.9 oz) SpO2 98% BMI 23.70 kg/m?? Exam: GENERAL: Well-developed, well-nourished, not in acute distress. HEAD: Normocephalic and atraumatic ENT: No hearing impairment, oral mucous membranes moist EYES: Eyes grossly normal to inspection LUNGS: Clear to auscultation - no rales, rhonchi or wheezes CARDIOVASCULAR: Regular rate and rhythm, normal S1 S2, no murmur ABDOMEN: Soft, nontender EXT: Extremities warm and without edema. MS: No gross musculoskeletal defects noted, no edema SKIN: No acute rashes or suspicious lesions NEUROLOGIC: Grossly nonfocal. Mentation intact and speech normal PSYCHIATRIC: Mood stable, mentation appears normal, affect normal Laboratory Data: Creatinine Date Value Ref Range Status 11/15/2023 4.79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 MD 75 mcg at 11/14/23 0816 Lidocaine (LIDOCARE) 4 % Patch 1 patch 1 patch Transdermal Q24h Manfred Hou MD 1 patch at 11/11/23 2225 loratadine (CLARITIN) tablet 10 mg 10 mg Oral Daily Martha Lim MD 10 mg at 11/14/23 0816 montelukast (SINGULAIR) tablet 10 mg 10 mg Oral At Bedtime Manfred Hou MD 10 mg at 11/13/23 2309 multivitamin RENAL (RENAVITE RX/NEPHROVITE) tablet 1 tablet 1 tablet Oral Daily with supper Manfred Hou MD 1 tablet at 11/14/23 1607 NIFEdipine ER OSMOTIC (PROCARDIA XL) 24 hr tablet 90 mg 90 mg Oral Daily Martha Lim MD 90 mg at 11/13/232000 piperacillin-tazobactam (ZOSYN) 2.25 g vial to attach to NS 100 ml bag 2.25 g Intravenous Q6H Manfred Hou MD 200 mL/hr at 11/14/23 1607 2.25 g at 11/14/23 1607 predniSONE (DELTASONE) tablet 5 mg 5 mg Oral Daily Manfred Hou MD 5 mg at 11/14/23 0816 sodium chloride (PF) 0.9% PF flush 3 mL 3 mL Intracatheter Q8H Manfred Hou MD 3 mL at 11/14/23 0606 torsemide (DEMADEX) tablet 100 mg 100 mg Oral BID Manfred Hou MD 100 mg at 11/14/23 1607 Infusion Meds Current Facility-Administered Medications Medication Dose Route Frequency Provider Last Rate Last Admin ALLERGIES: Allergies Allergen Reactions Cefixime Diarrhea C Diff Citalopram Other (See Comments) Other Reaction(s): Intolerance-Can't Take, Other (see comments) Liver transplant michell Michell, Liver transplant Ibuprofen Other (See Comments) Other Reaction(s): Other (see comments) PT SHOULD NOT HAVE THIS MED R/T LIVER TRANSPLANT Olanzapine Other Reaction(s): Muscle Weakness, Other (see comments) Joint pain Quetiapine Swelling and Other (See Comments) Other Reaction(s): Intolerance-Can't Take, Other (see comments) Liver transplant Muscle pain and swelling Ciprofloxacin Other (See Comments) Other Reaction(s): Intolerance-Can't Take, Other (see comments) Liver transplant Tendon pain Tendon pain, Liver transplant Erythromycin Base Other (See Comments) Due to medications, interacts with transplant medications Due to medications, interacts with transplant medications Aspirin Other (See Comments) Liver transplant Erythromycin Other (See Comments) interacts with meds REVIEW OF SYSTEMS: A comprehensive of systems was negative except as noted above. SOCIAL HISTORY: Social History Socioeconomic History Marital status: Single Spouse name: Not on file Number of children: Not on file Years of education: Not on file Highest education level: Not on file Occupational History Not on file Tobacco Use Smoking status: Never Smokeless tobacco: Never Substance and Sexual Activity Alcohol use: Not Currently Comment: no longer drinks alcohol Drug use: Never Sexual activity: Not on file Other Topics Concern Not on file Social History Narrative Not on file Social Determinants of Health Financial Resource Strain: Low Risk (11/03/2023) Received from [facility] Financial Resource Strain Difficulty of Paying Living Expenses: 3 Difficulty of Paying Living Expenses: Not on file Food Insecurity: No Food Insecurity (11/03/2023) Received from [facility] Food Insecurity Worried About Running Out of Food in the Last Year: 1 Transportation Needs: No Transportation Needs (11/03/2023) Received from [facility] Transportation Needs Lack of Transportation (Medical): 1 Physical Activity: Inactive (08/19/2023) Received from [facility] Exercise Vital Sign Days of Exercise per Week: 0 days Minutes of Exercise per Session: 30 min Stress: No Stress Concern Present (07/21/2022) Received from [facility] [place] [facility] - Occupational Stress Questionnaire Feeling of Stress : Not at all Social Connections: Socially Integrated (11/03/2023) Received from [facility] Social Connections Frequency of Communication with Friends and Family: 0 Interpersonal Safety: Not At Risk (09/15/2023) Received from [facility] Humiliation, Afraid, Rape, and Kick questionnaire Fear of Current or Ex-Partner: No Emotionally Abused: No Physically Abused: No Sexually Abused: No Housing Stability: Low Risk (11/03/2023) Received from [facility] Housing Stability Unable to Pay for Housing in the Last Year: 1 Reviewed with patient No one accompanies Bruce Singh in hospital room FAMILY MEDICAL HISTORY: Family History Problem Relation Age of Onset Coronary Artery Disease Mother 77 Valvular heart disease Mother Coronary Artery Disease Father 75 Skin Cancer Father Kidney Disease No family hx of Liver Disease No family hx of No family history of kidney disease Reviewed with patient PHYSICAL EXAM: Temp Av.8 ??F (36.6 ??C) Min: 97.6 ??F (36.4 ??C) Max: 98 ??F (36.7 ??C) Pulse Av Min: 72 Max: 76 Resp Av Min: 16 Max: 16 SpO2 Av.5 % Min: 94 % Max: 95 % BP (!) 160/83 (BP Location: Right arm) Pulse 68 Temp 97.8 ??F (36.6 ??C) (Oral) Resp 18 Ht 1.753 m (5' 9) Wt 77.4 kg (170 lb 9.6 oz) SpO2 98% BMI 25.19 kg/m?? Admit Weight: 78 kg (172 lb) GENERAL APPEARANCE: No distress, awake EYES: No scleral icterus, pupils equal Lymphatics: no cervical or supraclavicular LAD Pulmonary: Bilateral crackles basally, no clubbing CV: regular rhythm, normal rate, no rub - JVD no - Edema trace GI: soft, nontender, normal bowel sounds MS: no evidence of inflammation in joints, no muscle tenderness : No auguste SKIN: no rash, warm, dry, no cyanosis NEURO: face symmetric, no asterixis LABS: I have reviewed the following labs: CMP Recent Labs Lab 11/14/23 0556 11/13/23 0717 11/12/23 0844 11/11/237 NA 136 133* 132* 130* POTASSIUM 3.7 3.7 3.9 4.5 CHLORIDE 98 94* 90* 90* CO2 26 21* 23 26 ANIONGAP 12 18* 19* 14 GLC 89 84 102* 124* BUN 21.9 56.9* 54.1* 50.9* CR 3.77* 6.08* 5.64* 5.00* GFRESTIMATED 17* 9* 10* 12* JUAQUIN 8.5* 7.6* 8.1* 8.2* PHOS -- 6.8* -- -- PROTTOTAL 6.2* 6.2* 6.5 6.9 ALBUMIN 3.6 3.6 3.7 4.1 BILITOTAL 0.3 0.3 0.4 0.6 ALKPHOS 105 109 114 123 AST 19 20 17 18 ALT 13 14 15 15 CBC Recent Labs Lab 11/14/23 0556 11/13/23 0717 11/12/23 0844 11/11/232046 HGB 10.0* 9.4* 9.5* 10.2* WBC 3.8* 5.4 4.6 5.7 RBC 3.55* 3.32* 3.37* 3.62* HCT 32.3* 29.7* 30.7* 32.7* MCV 91 90 91 90 MCH 28.2 28.3 28.2 28.2 MCHC 31.0* 31.6 30.9* 31.2* RDW 17.5* 17.1* 17.3* 17.5* PLT 202 201 162 170 INRNo lab results found in last 7 days. ABGNo lab results found in last 7 days. URINE STUDIES No lab results found. No lab results found. PTH No lab results found. IRON STUDIES No lab results found. IMAGING: All imaging studies reviewed by mo. ANA RIVAS MD * Diana Gonzales PA-C - 11/14/2023 1:31 PM CDT Images from the original note were not included. [facility] PROGRESS NOTE Patient: Bruce Singh Date of 1955, Date of Visit: 11/14/2023 Date of Admission: 11/11/2023 Consult Requester:Martha Lim MD Assessment and Plan: ID Problem List GNB bacteremia (+11/09 in 1/2 sets at OSH - not yet identified) LLL consolidation c/f community acquired pneumonia vs aspiration Left kidney subcapsular hematoma s/p IR embolization 09/14/23, possible inflammatory stranding on OSH CT Bronchiectasis ESRD on HD Liver transplant status on IS (AZA, everolimus, prednisone 5 mg). 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 Most recently on maribavir. Off therapy since 07/2023. CMV 11/12 not detected. 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 Could not afford the co- pay for Posaconazole. Treated with voriconazole c/b wei, changed to isavuconazole. RECOMMENDATION: Continue PO doxycycline for atypical coverage. Given unremarkable respiratory workup, will complete3 days and stop Continue IV Zosyn for now for GNB bacteremia/LLL PNA coverage Awaiting OSH blood culture identification. [facility] sent plate to [facility] ([phone]) for identification. Called [facility] and they anticipate results back in next 12-24 hrs after MALDI analysis. 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 Found with LLL consolidation concerning for pneumonia and blood cultures positive 11/09 in 1/2 sets to date for GNB (awaiting identification). Febrile and tachycardic at OSH, no leukocytosis. Reports cough x3 weeks with intermittent productivity and occasional post-tussive dry heave or emesis c/f possible CAP vs post-viral vs aspiration pneumonia. Negative COVID/flu/RSV x2, urine antigens for Strep/Legionella, and full RVP panel. Pending sputum culture with GNR. Remains on PO doxycycline for atypical coverage (erythromycin allergy in chart, interact with transplant meds) and continue IV Zosyn for now to cover GNB. MRSA nares negative,so stopped IV vancomycin. Unclear source of GNB bacteremia - though possible from aspiration pneumonia with recent emesis and his known Serratia colonization. He also has L renal subcasular hematoma that seems stable in size, but more perirenal stranding. Flank pain is stable. No urinary symptoms, UA noninfectious appearing, and Ucx at OSH with no growth. Will cover for pneumonia as above, thoughhematoma seems stable and lower suspicion for infection here. Please repeat blood cultures x2 dailyto ensure GNB is clearing. Blood cultures NGTD here. We continue to await OSH GNB identification todetermine optimal antibiotic regimen and duration. [facility] sent plate to [facility] ([phone]) for identification on 11/12. Called [facility] today and they anticipate results back in [id number] hrs after MALDI analysis. Reassuring that he clinically remains stable with no recurrent fever. Discussed with transplant ID team (as no transplant ID MD on [facility]) for additional recommendations. He has history of CMV viremia and has been off antiviral therapy since July 2023 - would consider CMV screen while here. CMV not detected 11/12. No role for antiviral. He is not on any bacterial or viral prophylaxis. Monitor for diarrhea given history of C difficile and recent broad spectrumantibiotic use - none at present. Other ID issues: - QTc interval: 477msec on 06/02/23 - Bacterial prophylaxis: on treatment as above - Pneumocystis prophylaxis: none - Viral serostatus & prophylaxis: CMV+, EBV+; none - Fungal prophylaxis: none - Immunization status: Due for Td/Tdap. Otherwise up to date. - Isolation status: good hand hygiene Infectious diseases will follow peripherally over the weekend. Dr. Matos will be covering the [facility] ID services over the weekend and next week. Recommendations discussed with primary team. Diana Gonzales PA-C Infectious Diseases Pager #[phone] or Vocera 50 MINUTES SPENT BY ME on the date of service doing chart review, history, exam, documentation & further activities per the note. Interim History and Events: Remains afebrile and vital stable. No leukocytosis - WBC 3.8 today. RVP and urine pneumonia antigens negative. Sputum culture with normal efrem. CMV negative. OSH blood cultures with no growth to date. He endorses ongoing productive cough today. Denies fevers, chills, sweats, diarrhea. Stable left-sided pain worse with coughing, but manageable. HPI: See ID consult note dated 11/13/23 ROS: -Focused 5 point ROS completed, pertinent positives and negatives listed above. Physical Examination: Temp: 97.4 ??F (36.3 ??C) Temp src: Oral BP: 138/79 Pulse: 73 Resp: 17 SpO2: 97 % O2 Device: None (Room air) Vitals: 11/11/23202411/13/23 0723 Weight: 78 kg (172 lb) 77.4 kg (170 lb 9.6 oz) Constitutional: Pleasant adult male seen sitting up in bed, in NAD. Alert and interactive. HEENT: NCAT, anicteric sclerae, conjunctiva clear. Moist mucous membranes. Respiratory: Non-labored breathing, good air exchange. Lungs are clear to auscultation bilaterally,without wheezing, crackles or rhonchi. Cough noted, not productive today Cardiovascular: Regular rate and rhythm with no murmur, rub or gallop. GI: Normoactive BS. Abdomen is soft, nontender to palpation, non-distended. No rigidity or guarding. No rebound tenderness. Abdominal scars noted. Skin: Warm and dry. No new rashes or lesions on exposed surfaces. Musculoskeletal: Extremities grossly normal. Fistula in RUE. No tenderness or edema present. Neurologic: A &O x3, speech normal, answering questions appropriately. Moves all extremities spontaneously. Grossly non-focal. Neuropsychiatric: Mentation and affect normal/appropriate. VAD: PIV is c/d/i with no erythema, drainage, or tenderness. Medications: Current Facility-Administered Medications Medication Dose Route Frequency Provider Last Rate Last Admin atorvastatin (LIPITOR) tablet 10 mg 10 mg Oral Daily Manfred Hou MD 10 mg at 11/14/23 0816 [Held by provider] azaTHIOprine (IMURAN) tablet 50 mg 50 mg Oral BID Manfred Hou MD 50 mg at 11/12/23 0800 doxycycline (VIBRAMYCIN) 100 mg vial to attach to NS 100 mL bag 100 mg Intravenous Q12H Martha Lim MD 100 mL/hr at 11/14/23 1240 100 mg at 11/14/23 1240 everolimus (ZORTRESS) tablet 1 mg 1 mg Oral BID Manfred Hou MD 1 mg at 11/14/23 0816 heparin ANTICOAGULANT injection 5,000 Units 5,000 Units Subcutaneous Q8H Manfred Hou MD 5,000 Units at 11/14/23 0603 lamoTRIgine (LaMICtal) tablet 200 mg 200 mg Oral BID Manfred Hou MD 200 mg at 11/14/23 0815 levothyroxine (SYNTHROID/LEVOTHROID) tablet 75 mcg 75 mcg Oral Daily Manfred Hou MD 75 mcg at 11/14/23 0816 Lidocaine (LIDOCARE) 4 % Patch 1 patch 1 patch Transdermal Q24h Manfred Hou MD 1 patch at 11/11/23 2225 loratadine (CLARITIN) tablet 10 mg 10 mg Oral Daily Martha Lim MD 10 mg at 11/14/23 0816 montelukast (SINGULAIR) tablet 10 mg 10 mg Oral At Bedtime Manfred Hou MD 10 mg at 11/13/23 2309 multivitamin RENAL (RENAVITE RX/NEPHROVITE) tablet 1 tablet 1 tablet Oral Daily with supper Manfred Hou MD 1 tablet at 11/13/23 1709 NIFEdipine ER OSMOTIC (PROCARDIA XL) 24 hr tablet 90 mg 90 mg Oral Daily Martha Lim MD 90 mg at 11/13/232000 piperacillin-tazobactam (ZOSYN) 2.25 g vial to attach to NS 100 ml bag 2.25 g Intravenous Q6H Manfred Hou MD 200 mL/hr at 11/14/23 0817 2.25 g at 11/14/23 0817 predniSONE (DELTASONE) tablet 5 mg 5 mg Oral Daily Manfred Hou MD 5 mg at 11/14/23 0816 sodium chloride (PF) 0.9% PF flush 3 mL 3 mL Intracatheter Q8H Manfred Hou MD 3 mL at 11/14/23 0606 torsemide (DEMADEX) tablet 100 mg 100 mg Oral BID Manfred Hou MD 100 mg at 11/14/23 0816 Infusions/Drips: Current Facility-Administered Medications Medication Dose Route Frequency Provider Last Rate Last Admin Laboratory Data: No results found for: ACD4 Inflammatory Markers No lab results found. Metabolic Studies Recent Labs Lab Test 11/14/23 0556 11/13/23 0717 11/12/23 0844 11/11/23204606/02/23 1436 NA 136 133* 132* 130* 131* POTASSIUM 3.7 3.7 3.9 4.5 4.8 CHLORIDE 98 94* 90* 90* 90* CO2 26 21* 23 26 24 ANIONGAP 12 18* 19* 14 17* BUN 21.9 56.9* 54.1* 50.9* 62.8* CR 3.77* 6.08* 5.64* 5.00* 4.76* GFRESTIMATED 17* 9* 10* 12* 13* GLC 89 84 102* 124* 209* JUAQUIN 8.5* 7.6* 8.1* 8.2* 9.1 PHOS -- 6.8* -- -- -- Hepatic Studies Recent Labs Lab Test 11/14/23 0556 11/13/23 0717 11/12/23 0844 11/11/23204606/02/23 1436 BILITOTAL 0.3 0.3 0.4 0.6 0.5 ALKPHOS 105 109 114 123 756* ALBUMIN 3.6 3.6 3.7 4.1 4.3 AST 19 20 17 18 282* ALT 13 14 15 15 257* Pancreatitis testing No lab results found. Hematology Studies Recent Labs Lab Test 11/14/23 0556 11/13/23 0717 11/12/23 0844 11/11/23204606/02/23 1436 WBC 3.8* 5.4 4.6 5.7 5.5 HGB 10.0* 9.4* 9.5* 10.2* 9.3* HCT 32.3* 29.7* 30.7* 32.7* 28.1* PLT 202 201 162 170 212 Arterial Blood Gas Testing No lab results found. Urine Studies No lab results found. Vancomycin Levels Recent Labs Lab Test 11/13/23 1738 11/12/23 0602 VANCOMYCIN 21.3 35.4* Microbiology: Culture Date Value Ref Range Status 11/13/2023 No growth after 12 hours Preliminary 11/13/2023 No growth after 12 hours Preliminary 11/12/2023 No growth after 1 day Preliminary 11/12/2023 Positive on the 1st day of incubation (A) Preliminary 11/12/2023 Staphylococcus capitis (AA) Preliminary Comment: 1 of 1 bottles 11/12/2023 1+ Normal Efrem Final 11/11/2023 No growth after 2 days Preliminary 11/11/2023 No growth after 2 days Preliminary Last check of C difficile No results found for: CDBPCT Imaging: CT OUTSIDE READ ABD/PELV Result Date: 11/11/2023 Impression: 1. Left kidney subcapsular hematoma extending into the retroperitoneum, measuring 4.8 x7.3 x 15.3 cm with surrounding fat stranding and fascial thickening. This appears chronic and is also described on previous outside CT scans. 2. Left lower lobe infiltrate concerning for pneumonia. OSH Imaging - CT Chest and A/P with and without IV contrast 11/10/23 IMPRESSION: 1. Bilateral renal atrophy with left perinephric fluid collection and several exophytic collectionsmeasuring up to 7.4 centimeters. This is in the same distribution as the previously noted left perinephric hemorrhage. Current collections show a peripheral rim and internal lower density consistent with chronic evolving hematomas. 2. No dilated loops of large or small intestine with large amount of stool within the colon. 3. Pancreatic atrophy with multiple pancreatic cystic lesions, stable compared to the prior exam. Differential diagnosis includes pancreatic cysts or side branch IPMNs. 4. Atherosclerosis including severe coronary atherosclerosis. IMPRESSION: 1. No significant change in multiple left perinephric chronic hematomas and surrounding left perinephric stranding. Recommend correlation with laboratory values to evaluate for superimposed infectious process. 2. Similar left lower lobe patchy consolidation, which may reflect pneumonia and/or aspiration pneumonitis. 3. Multiple indeterminate right renal lesions. These are increased in size sinceprior postcontrast CT abdomen and pelvis 03/02/2023. Consider further characterization with CT/MRI abdomen (renal mass protocol) on an outpatient basis. Lungs and pleura: Left lower lobe patchy consolidation, unchanged. No suspiciousnodules. No pleuraleffusions or pneumothorax thorax. * Joni Larson RN - 11/14/2023 12:08 PM CDT Care Management Follow Up Length of Stay (days): 3 Expected Discharge Date: 11/16/2023 Concerns to be Addressed: discharge planning (may need home IV ABX) Patient plan of care discussed at interdisciplinary rounds: Yes Anticipated Discharge Disposition: Outpatient Infusion Services (still awaiting ID plan); dialysis Anticipated Discharge Services: None Anticipated Discharge DME: No new DME anticipated Patient/family educated on Medicare website which has current facility and service quality ratings:Not by this typewriter repairer Education Provided on the Discharge Plan: Not by this typewriter repairer Patient/Family in Agreement with the Plan: Plan TBD Referrals Placed by CM/SW: [facility] and [facility] (for possible IV abx) Private pay costs discussed: Have not yet informed pt of OOP costs for home infusion, as it is not yet known if IV abx will be needed for discharge Additional Information: Outpatient Dialysis Center: [facility] [address] [place] [address] Case discussed in rounds this AM. Per provider, pt may be discharge-ready over the weekend. Currently awaiting ID plan. Provider stated pt may or may not require IV abx, still TBD at this time. Sent referral to [facility] for insurance benefit check in the event pt requires IV abxat discharge. CC'd weekend RNCCs on email as well. Received the following response (no coverage): Pt does not have coverage for iv abx through their [place] [employer] plan. I have provided the [facility] discount on the drug and supplies would be self-pay. Based on Zosyn 2.25g q6h, total cost is $65.52/day for drug and supplies. For nursing, patient should have coverage if homebound, however [facility] is not contracted with Medicare and an outside nursing agency would be utilized instead. If patient is not homebound, there is no coverage and [facility] can see patient if patient agrees to self-pay for $90 per visit. Patient should have coverage in a TCU or infusion center. Called [facility] at [phone], option 1, option 1. Spoke donna/ Juanisha, made referral for potential IV abx. She stated she will call this typewriter repairer back w/ coverage info. 2:53pm - Received call from Joel thompson/ [facility] Regalado. Per Joel, she used ceftriaxone 2g q24 hours to check benefits (at this time, final drug regimen is not known). She stated pt has drug copay of$29.83/wk, but no coverage for supplies and nursing. Total cost would be around $250/wk for drug/sup plies/nursing. It is important to note that this cost quote will likely need to be rechecked when final abx plan is made. Called [facility], spoke w/ Jermaine. She stated she is the PD nurse, not in-clinic hemodialysis, but that she would pass info along to clinic team. She confirmed pt receives dialysis there, stated he does third shift so it shouldn't be a problem for him to have his chair time on Friday (11/16)if he discharges over the weekend. Inquired about ability to give IV abx, she stated she believes they can give them even if the infection is not related to dialysis, so long as they have the abx available to them. She stated she can look into this further and call this typewriter repairer back. Provided directcall back number. Received call from Jermaine, she stated she spoke w/ [facility] and they stated they can only do IV abx in the event the infection is dialysis related. Informed provider of the above info from Jermaine regarding criteria for dialysis administering IV abx. Also informed her of relatively expensive OOP costs for home infusion. Provider acknowledged, stated she is hopeful for oral abx plan from ID, but if IV abx are needed, it is possible the bacteremia can be considered a dialysis-related infection. Care mgmt will continue to follow. 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 Changes Today; - Continue zosyn. Stop vancomycin. - Awaiting blood culture results from [place]. Sepsis Left lower lobe pneumonia Possible GNR bacteremia Pt had sudden onset pleuritic chest pain and L flank pain while at dialysis on 11/09. Was initially brought to [facility] where he was found to be febrile to 104F and tachycardic. Infectious work up initiated and he was started on broad spectrum abx. Transfer[place] [facility] and then [facility] due tohistory of liver transplant. Per initial report, blood cultures growing GNR. CXR with LLL infiltrate concerning for pneumonia. - Continue vancomycin and zosyn - ID consulted - Follow blood cultures - 11/09 cultures from [facility] reportedly growing GNR. Discussed with micro lab this morning and they will call back with more updates. - 11/11 - GPC in 1/2 bottles, ?contaminant - 11/12 - pending - Sputum culture pending. Gram stain with 1+ GNR +GPC in blood culture 1 of 2 bottles from 11/11 growing GPCs with verigene positive for coag-negative staph. Highest suspicion for contaminant. Restarted on vancomycin pending speciation. - Stop vancomycin (11/12-) - Repeat blood cultures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 17 18 ALT 15 15 CBC Recent Labs Lab 11/12/23 0844 11/11/232046 HGB 9.5* 10.2* WBC 4.6 5.7 RBC 3.37* 3.62* HCT 30.7* 32.7* MCV 91 90 MCH 28.2 28.2 MCHC 30.9* 31.2* RDW 17.3* 17.5* PLT 162 170 INRNo lab results found in last 7 days. ABGNo lab results found in last 7 days. URINE STUDIES No lab results found. No lab results found. PTH No lab results found. IRON STUDIES No lab results found. IMAGING: All imaging studies reviewed by me. ANA RIVAS MD documented in this encounter Miscellaneous Notes * Plan of Care - Demian Cr RN - 11/18/2023 9:48 AM CDT Goal Outcome Evaluation: DISCHARGE SUMMARY Pt discharging to: Home Transportation: Family AVS given and discussed: Pt was given AVS and pt states understanding of content. Pt has no furtherquestions. Medications given: Medication will be picked up from home pharmacy . Belongings returned: Yes, ensured all belongings packed and sent with pt. No items in security. Comments: Escorted safely to elevators. Pt left at 0950 * Plan of Care - Adriana Garcia RN - 11/17/2023 7:05 PM CDT Goal Outcome Evaluation: Plan of Care Reviewed With: patient Overall Patient Progress: improvingOverall Patient Progress: improving VS: BP (!) 171/100 Pulse 74 Temp 97.7 ??F (36.5 ??C) (Oral) Resp 16 Ht 1.753 m (5' 9) Wt76.2 kg (167 lb 15.9 oz) SpO2 98% BMI 24.81 kg/m?? O2: Stable on RA, no complaints of SOB or chest pain. Output: Voiding w/o pain or difficulty to bathroom. Last BM: 11/16/23 Activity: Independent Skin: Some bruising on BUE. Pain: Denies pain. CMS: A&Ox4 Dressing: None Diet: Regular. No complaints of nausea or vomiting. LDA: L PIV, SL Equipment: IV pole Plan: Possible discharge tomorrow. Additional Info: Patient had dialysis today. Tire Man was told to hold off on 1600 & 1700 scheduled medications until dialysis is done by financial services internship. When typewriter repairer came into patient's room with medications after dialysis was complete, patient not in room. Patient did not notify RN prior to leaving unit. Patient came back to unit at 1900 and scheduled medications given. Oncoming RN updated. * Plan of Care - Martina Hamm RN - 11/17/2023 6:22 AM CDT VS: Blood pressure (!) 158/86, pulse 87, temperature 97.3 ??F (36.3 ??C), temperature source Oral, resp. rate 16, height 1.753 m (5' 9), weight 72.8 kg (160 lb 7.9 oz), SpO2 100%. O2: >90% on RA no complaints of SOB or chest pain. Output: Voiding adequate amounts w/o pain or difficulty to bathroom. Last BM: 11/15 Activity: Independent in the room Skin: Bruising on BUE. Pain: Denies pain. CMS: A/O x4 able to make needs known. Dressing: None Diet: Diet regular, pt gets food from cafeteria LDA: L PIV, SL. Equipment: IV pole and personal belongings in the room. Plan: Continue POC. Additional Info: Pt did dialysis 11/15, plan is to get discharge on Friday. * Plan of Care - Adriana Garcia RN - 11/16/2023 6:28 PM CDT Goal Outcome Evaluation: Plan of Care Reviewed With: patient VS: BP (!) 158/86 (BP Location: Left arm) Pulse 87 Temp 97.3 ??F (36.3 ??C) (Oral) Resp 16 Ht 1.753 m (5' 9) Wt 72.8 kg (160 lb 7.9 oz) SpO2 100% BMI 23.70 kg/m?? O2: >94% on RA no complaints of SOB or chest pain. Output: Voiding w/o pain or difficulty to bathroom. Last BM: 11/16/23 Activity: Independent Skin: Bruising on BUE Pain: Denies pain CMS: A&Ox4 Dressing: None Diet: Regular. No complaints of nausea or vomiting. LDA: L PIV, SL Equipment: IV pole & Personal items. Plan: Continue POC. Additional Info: Dialysis tommorow. * Plan of Care - Martina Hmam RN - 11/16/2023 7:03 AM CDT VS: Temp: 98 ??F (36.7 ??C) Temp src: Oral BP: (!) 148/74 Pulse: 79 Resp: 16 SpO2: 99 % O2 Device: None (Room air) O2: >90% on RA no complaints of SOB or chest pain. Output: Voiding adequate amounts w/o pain or difficulty to bathroom. Last BM: 11/14 Activity: Stand by assist. Skin: Generalized ecchymosis/bruising d/t blood thinners Pain: Pt denied pain CMS: A/O X4 Dressing: None Diet: Regular, tolerating well. No complaints of nausea or vomiting. LDA: R PIV, abx given during shift. Equipment: Personal belongings in the room. Plan: Continue POC. Additional Info: Pt did dialysis yesterday, abx given during shift. * Plan of Care - Deepali Bronson RN - 11/15/2023 6:12 PM CDT VS: Pt A/O X 4. Afebrile. VSS. BP (!) 162/78 (BP Location: Left arm) Pulse 79 Temp 98 ??F (36.7 ??C) (Oral) Resp 16 Ht 1.753 m (5' 9) Wt 72.8 kg (160 lb 7.9 oz) SpO2 100% BMI 23.70 kg/m?? IS encouraged. Denies nausea, shortness of breath, and chest pain. Output: Bowels- present in all four quadrants. Voids spontaneously without difficulty in the toilet. Activity: Pt up independently. Skin: Bruising on BUE . Pain: Denies CMS: CMS and Neuro's are intact. Denies numbness and tingling in all extremities. Dressing: None Diet: Pt is on a regular diet and appetite was good this shift. LDA: PIV is patent in the LUE and saline locked. Equipment: Bilateral heels are elevated off the bed. Plan: Pt is able to make needs known and the call light is within the pt's reach. Continue to monitor. Additional Info: Pt had dialysis this morning. Pt had a shower. * Plan of Care - Martina Hamm RN - 11/15/2023 1:49 AM CDT VS: Blood pressure (!) 160/83, pulse 68, temperature 97.8 ??F (36.6 ??C), temperature source Oral, resp. rate 18, height 1.753 m (5' 9), weight 77.4 kg (170 lb 9.6 oz), SpO2 98%. O2: >90% on RA no complaints of SOB or chest pain. Output: Voiding adequate amounts w/o pain or difficulty to bathroom. Last BM: Activity: Stand by assist Skin: Generalized ecchymosis/bruising d/t blood thinners Pain: Denies pain. CMS: A/O x4, able to make needs known Dressing: None. Diet: Tolerating regular diet. LDA: R PIV, abx infusing every 6 hrs.R A fistula -dialysis Fri,fri, and Friday. Equipment: Personal belonging in the room. Plan: Continue POC. Additional Info: Pt had Liver transtplant, on dialysis- Hemodialysis mon, fri, and . * Plan of Care - Nadia Gamboa RN - 11/14/2023 6:14 PM CDT Goal Outcome Evaluation: Plan of Care Reviewed With: patient Overall Patient Progress: improvingOverall Patient Progress: improving Outcome Evaluation: Improving Shift: [id number] VS: BP (!) 160/83 (BP Location: Right arm) Pulse 68 Temp 97.8 ??F (36.6 ??C) (Oral) Resp 18 Ht 1.753 m (5' 9) Wt 77.4 kg (170 lb 9.6 oz) SpO2 98% BMI 25.19 kg/m?? Pain: At acceptable level on current regimen. Neuro: A&Ox4. Cardiac: WDL Respiratory: WDL Diet/Appetite: Tolerating reg diet. Eating well. /GI: Pt on HD makes some urine. Last BM 11/12 LDA's: R PIV saline locked Skin: Generalized ecchymosis/bruising d/t blood thinners Activity: Independent Plan: HD 11/14 * Plan of Care - Evelia Lane RN - 11/14/2023 5:19 AM CDT Goal Outcome Evaluation: Overall Patient Progress: no change Pt A & O X 4. Up independently in room to the BR. Pt reports he still makes some urine. Denies pain but having frequent productive cough. Given Lozenges. Pleasant/cooperative/able to make needs known. Nursing is monitoring and assisting as needed Evelia Lane RN * Pharmacy-Vancomycin Dosing Service - Miryam Eden [facility] - 11/13/2023 4:41 PM CDT Pharmacy Vancomycin Note Date of Service November 13, 2023 Patient's 1955 68 year old, male Indication: Bacteremia Day of Therapy: since 11/10/23; got 1500mg on 11/09 and 2000mg on 11/10 at outside hospitals Current vancomycin regimen: 2000mg last given on 11/10 at [facility] [place] 12:30pm Current vancomycin monitoring method: Renal Replacement Therapy Current vancomycin therapeutic monitoring goal: 15-20 mg/L Current estimated CrCl = Estimated Creatinine Clearance: 12.6 mL/min (A) (based on SCr of 6.08 mg/dL (H)). Creatinine for last 3 days 11/11/2023: 8:47 PM Creatinine 5.00 mg/dL 11/12/2023: 8:44 AM Creatinine 5.64 mg/dL 11/13/2023: 7:17 AM Creatinine 6.08 mg/dL Recent Vancomycin Levels (past 3 days) 11/13/2023: 5:38 PM Vancomycin 21.3ug/mL 11/12/2023: 6:02 AM Vancomycin 35.4 ug/mL Vancomycin IV Administrations (past 72 hours) No vancomycin orders with administrations in past 72 hours. Nephrotoxins and other renal medications (From now, onward) Start Dose/Rate Route Frequency Ordered Stop 11/11/23 2230 torsemide (DEMADEX) tablet 100 mg Note to Pharmacy: SESSIONS CLERK Sig:Take 100 mg by mouth 2 times daily 100 mg Oral 2 TIMES DAILY (Diuretics and Nitrates) 11/11/23212111/11/230 piperacillin-tazobactam (ZOSYN) 2.25 g vial to attach to NS 100 ml bag Note to Pharmacy: For [facility], [facility] and [facility]: For Zosyn-naive patients, use the Zosyn initial dose + extended infusion order panel. 2.25 g over 30 Minutes Intravenous EVERY 6 HOURS 11/11/232121 Contrast Orders - past 72 hours (72h ago, onward) None Interpretation of levels and current regimen: Vancomycin level is reflective of supratherapeutic level at 21.3 post-HD today Has serum creatinine changed greater than 50% in last 72 hours: No Urine output: makes some urine at baseline Renal Function: ESRD on Dialysis Plan: Patient had dialysis this morning. Since we did not have a pre-HD vanco level, I got a post-HD vanco level. Based on the post-HD vanco level, it is recommended per our HD vanco chart to not re-dose his vanco at this time as his level is above the goal range fo 15-20mg/L. Will get a pre-HD vanco level on 11/14. Likely will need to re-dose on 11/14 evening. Vancomycin monitoring method: Renal Replacement Therapy Vancomycin therapeutic monitoring goal: 15-20 mg/L Pharmacy will check vancomycin levels as appropriate in 1-3 Days. Serum creatinine levels will be ordered a minimum of twice weekly. Miryam Eden, PharmD, BCPS * Plan of Care - Aditya Robertson RN - 11/13/2023 7:00 AM CDT Goal Outcome Evaluation: Plan of Care Reviewed With: patient Overall Patient Progress: no change Blood pressure (!) 160/82, pulse 80, temperature 97.6 ??F (36.4 ??C), temperature source Oral, resp. rate 18, height 1.753 m (5' 9), weight 78 kg (172 lb), SpO2 96%. Patient alert and oriented x4, able to verbalize needs. Stable on room air, denies chest [pain and SOB. Independent in room, reports pain but refused pain interventions. Patient states, pain is tolerable, will call if I need pain meds. Right fistula in place for dialysis on TTS. Patient expresses no other concerns at this time, in bed resting, call light within reach. Plan of care ongoing * Pharmacy-Admission Medication History - Isra Palma Amber - 11/12/2023 3:38 PM CDT Pharmacist Admission Medication History Admission medication history is complete. The information provided in this note is only as accurateas the sources available at the time of the update. Information Source(s): Patient and CareEverywhere/SureScripts via phone Pertinent Information: Patient reported that sevelamer was discontinued as his phosphate had been wnl. Changes made to SESSIONS CLERK medication list: Added: None Deleted: None Changed: Changed the timing of a few meds to match his home schedule, daily dose unchanged. Allergies reviewed with patient and updates made in EHR: yes Medication History Completed By: Isra Palma RPH 11/12/2023 3:38 PM SESSIONS CLERK Med List Medication Sig Last Dose atorvastatin (LIPITOR) 10 MG tablet Take 10 mg by mouth at bedtime 11/10/2023 azaTHIOprine (IMURAN) 50 MG tablet Take 50 mg by mouth 2 times daily 11/11/2023 B Ljrahoz-G-Tbyis Acid (DAVE-DAVID RX) 1 mg TABS Take 1 tablet by mouth daily (with dinner) 11/11/2023 budesonide (PULMICORT) 0.5 MG/2ML neb solution Mcmillan 0.5 mg in nostril ADD 1 RESPULE TO 8 OZ SALINEAND IRRIGATE EACH SIDE OF NOSE TWICE DAILY DIRECTED 11/11/2023 co-enzyme Q-10 100 MG CAPS capsule Take 100 mg by mouth daily 11/11/2023 everolimus (ZORTRESS) 0.5 MG tablet Take 1 mg by mouth 2 times daily 11/11/2023 ipratropium (ATROVENT) 0.03 % nasal spray INHALE 2 SPRAYS IN EACH NOSTRIL TWICE DAILY, UP TO FIVE TIMES DAILY NEEDED Past Month lamoTRIgine (LAMICTAL) 200 MG tablet Take 200 mg by mouth 2 times daily 11/11/2023 levothyroxine (SYNTHROID/LEVOTHROID) 75 MCG tablet Take 75 mcg by mouth daily 11/11/2023 NIFEdipine ER OSMOTIC (PROCARDIA XL) 30 MG 24 hr tablet Take 90 mg by mouth daily 11/11/2023 predniSONE (DELTASONE) 5 MG tablet Take 5 mg by mouth daily 11/11/2023 sodium chloride inhalant 7 % NEBU neb solution USE AFTER NEBULIZATION WITH DUONEB IN THE MORNING AND AT NIGHT 11/11/2023 torsemide (DEMADEX) 100 MG tablet Take 100 mg by mouth 2 times daily 11/11/2023 * Pharmacy-Vancomycin Dosing Service - Miryam Eden RPH - 11/12/2023 1:44 PM CDT Pharmacy Vancomycin Note Date of Service November 12, 2023 Patient's 1955 68 year old, male Indication: Healthcare-Associated Pneumonia Day of Therapy: since 11/10/23 Current vancomycin regimen: intermittent dosing; last dose 2000mg [place] @12:30pm at [facility] [place] 11/11/23 Current vancomycin monitoring method: Renal Replacement Therapy Current vancomycin therapeutic monitoring goal: 15-20 mg/L Current estimated CrCl = Estimated Creatinine Clearance: 13.6 mL/min (A) (based on SCr of 5.64 mg/dL (H)). Creatinine for last 3 days 11/11/2023: 8:47 PM Creatinine 5.00 mg/dL 11/12/2023: 8:44 AM Creatinine 5.64 mg/dL Recent Vancomycin Levels (past 3 days) 11/12/2023: 6:02 AM Vancomycin 35.4 ug/mL Vancomycin IV Administrations (past 72 hours) No vancomycin orders with administrations in past 72 hours. Nephrotoxins and other renal medications (From now, onward) Start Dose/Rate Route Frequency Ordered Stop 11/11/232229 torsemide (DEMADEX) tablet 100 mg Note to Pharmacy: SESSIONS CLERK Sig:Take 100 mg by mouth 2 times daily 100 mg Oral 2 TIMES DAILY (Diuretics and Nitrates) 11/11/23212111/11/232[address] vancomycin [address] dubose - receiving intermittent dosing 1 each Intravenous SEE ADMIN INSTRUCTIONS 11/11/23221211/11/232199 piperacillin-tazobactam (ZOSYN) 2.25 g vial to attach to NS 100 ml bag Note to Pharmacy: For [facility], [facility] and [facility]: For Zosyn-naive patients, use the Zosyn initial dose + extended infusion order panel. 2.25 g over 30 Minutes Intravenous EVERY 6 HOURS 11/11/232121 Contrast Orders - past 72 hours (72h ago, onward) None Interpretation of levels and current regimen: Vancomycin level is reflective of supratherapeutic level Has serum creatinine changed greater than 50% in last 72 hours: No Urine output: can make some urine Renal Function: ESRD on Dialysis Plan: No dialysis planned for today. Will recheck a level tomorrow morning prior to dialysis. No need to redose vanco today since level is 35.4mg/L. Vancomycin monitoring method: Renal Replacement Therapy Vancomycin therapeutic monitoring goal: 15-20 mg/L Pharmacy will check vancomycin levels as appropriate in tomorrow . Serum creatinine levels will be ordered a minimum of twice weekly. Miryam Eden, PharmD, BCPS * Plan of Care - Kody Shelton RN - 11/12/2023 12:00 PM CDT VS: BP (!) 144/74 (BP Location: Left arm) Pulse 72 Temp 97.6 ??F (36.4 ??C) (Oral) Resp 16 Ht 1.753 m (5' 9) Wt 78 kg (172 lb) SpO2 94% BMI 25.40 kg/m?? O2: Stable @ RA,Denies SOB,Chest pain Output: Continent of b/b,LBM-11/10/23 Activity: SBA Pain: Pain managed with prn Dilaudid CMS: AXOX4,Denies N/T Dressing: None Skin Intact ,Scar on abd.past surgery LDA: LPIV Infusing.Fistula on R.forearm for dialysis Equipment: Personal belongings Plan: Continue with POC Additional Info: * Pharmacy-Vancomycin Dosing Service - Leonid Hooper [facility] - 11/12/2023 12:08 AM CDT Pharmacy Vancomycin Initial Note Date of Service November 12, 2023 Patient's 1955 68 year old, male Indication: Healthcare-Associated Pneumonia Current estimated CrCl = Estimated Creatinine Clearance: 15.4 mL/min (A) (based on SCr of 5 mg/dL (H)). Creatinine for last 3 days 11/11/2023: 8:47 PM Creatinine 5.00 mg/dL Recent Vancomycin Level(s) for last 3 days No results found for requested labs within last 3 days. Vancomycin IV Administrations (past 72 hours) No vancomycin orders with administrations in past 72 hours. Nephrotoxins and other renal medications (From now, onward) Start Dose/Rate Route Frequency Ordered Stop 11/11/230 torsemide (DEMADEX) tablet 100 mg Note to Pharmacy: SESSIONS CLERK Sig:Take 100 mg by mouth 2 times daily 100 mg Oral 2 TIMES DAILY (Diuretics and Nitrates) 11/11/23212111/11/232212 vancomycin place dubose - receiving intermittent dosing 1 each Intravenous SEE ADMIN INSTRUCTIONS 11/11/23221211/11/232199 piperacillin-tazobactam (ZOSYN) 2.25 g vial to attach to NS 100 ml bag Note to Pharmacy: For [facility], [facility] and [facility]: For Zosyn-naive patients, use the Zosyn initial dose + extended infusion order panel. 2.25 g over 30 Minutes Intravenous EVERY 6 HOURS 11/11/232121 Contrast Orders - past 72 hours (72h ago, onward) None Received unknown # of doses at OSHs. Last dose 2000 mg over 3 hours 11/10 @ 1230ESRD on dialysis Plan: Start vancomycin intermittent dosing. Vancomycin monitoring method: Renal Replacement Therapy Vancomycin therapeutic monitoring goal: 15-20 mg/L Pharmacy will check vancomycin levels as appropriate in 1-3 Days. Serum creatinine levels will be ordered daily for the first week of therapy and at least twice weekly for subsequent weeks. Leonid Hooper RPH documented in this encounter Plan of Treatment Not on file documented as of this encounter Procedures Procedure Name Priority Date/Time Associated Diagnosis Comments EVEROLIMUS BY TANDEM MASS SPECTROMETRY Routine 11/18/2023 6:25 AM CDT COMPREHENSIVE METABOLIC PANEL Routine 11/18/2023 6:25 AM CDT CBC WITH PLATELETS Routine 11/18/2023 6: 25 AM CDT COMPREHENSIVE METABOLIC PANEL Routine 11/17/2023 7:28 AM CDT CBC WITH PLATELETS Routine 11/17/2023 7: 28 AM CDT XR CHEST 2 VIEWS Routine 11/16/2023 11:2 0 AM CDT PHOSPHORUS Add-On 11/16/2023 6:40 AM CDT COMPREHENSIVE METABOLIC PANEL Routine 11/16/2023 6:40 AM CDT CBC WITH PLATELETS Routine 11/16/2023 6: 40 AM CDT C. DIFFICILE TOXIN B PCR WITH REFLEX TO C. DIFFICILE ANTIGEN AND TOXINS A/B EIA Routine 11/15/2023 1:18 PM CDT COMPREHENSIVE METABOLIC PANEL Routine 11/15/2023 7:47 AM CDT CBC WITH PLATELETS Routine 11/15/2023 7: 47 AM CDT COMPREHENSIVE METABOLIC PANEL Routine 11/14/2023 5:56 AM CDT CBC WITH PLATELETS Routine 11/14/2023 5: 56 AM CDT VANCOMYCIN LEVEL STAT 11/13/2023 5:38 PM CDT BLOOD CULTURE STAT 11/13/2023 4:41 PM CDT BLOOD CULTURE STAT 11/13/2023 4:39 PM CDT HEPATITIS B SURFACE ANTIBODY Routine 11/13/2023 7:35 AM CDT HEPATITIS B SURFACE ANTIGEN Routine 11/13/2023 7:35 AM CDT EVEROLIMUS BY TANDEM MASS SPECTROMETRY Routine 11/13/2023 7:17 AM CDT PHOSPHORUS Add-On 11/13/2023 7:17 AM CDT COMPREHENSIVE METABOLIC PANEL Routine 11/13/2023 7:17 AM CDT CMV QUANTITATIVE, PCR Routine 11/13/2023 7:17 AM CDT CBC WITH PLATELETS Routine 11/13/2023 7: 17 AM CDT RESPIRATORY PANEL PCR, NASOPHARYNGEAL Routine 11/12/2023 3:00 PM CDT RESPIRATORY PANEL PCR Routine 11/12/2023 3:00 PM CDT VERIGENE GP PANEL Routine 11/12/2023 2:2 7 PM CDT BLOOD CULTURE STAT 11/12/2023 2:27 PM CDT BLOOD CULTURE STAT 11/12/2023 2:27 PM CDT STREPTOCOCCUS PNEUMONIAE ANTIGEN Routine 11/12/2023 12:49 PM CDT LEGIONELLA PNEUMOPHILA URINARY ANTIGEN Routine 11/12/2023 12:49 PM CDT MRSA MSSA PCR, NASAL SWAB Routine 11/12/2023 10:12 AM CDT RESPIRATORY AEROBIC BACTERIAL CULTURE Routine 11/12/2023 10:07 AM CDT COMPREHENSIVE METABOLIC PANEL Routine 11/12/2023 8:44 AM CDT CBC WITH PLATELETS Routine 11/12/2023 8: 44 AM CDT VANCOMYCIN LEVEL Routine 11/12/2023 6:02 AM CDT INFLUENZA A/B, RSV, & SARS-COV2 PCR Routine 11/11/2023 11:27 PM CDT BLOOD CULTURE STAT 11/11/2023 9:48 PM CDT BLOOD CULTURE STAT 11/11/2023 9:47 PM CDT CBC WITH PLATELETS AND DIFFERENTIAL Routine 11/11/2023 8:47 PM CDT CBC WITH PLATELETS & DIFFERENTIAL Routine 11/11/2023 8:47 PM CDT COMPREHENSIVE METABOLIC PANEL Routine 11/11/2023 8:47 PM CDT documented in this encounter Results * (ABNORMAL) Comprehensive metabolic panel (11/18/2023 6:25 AM CDT) Sodium 138 135 - 145 mmol/L 11/18/2023 [...] LAB - BLOOD ORDERAB LES UR LABORATORY [facility] [address] [place] [id number] * (ABNORMAL) CBC with [...] LAB - BLOOD ORDERAB LES UR LABORATORY [facility] Lab [address] [place] [id number] * (ABNORMAL) Everolimus by Tandem Mass Spectrometry (11/18/2023 6:25 AM CDT) [facility] Everolimus by Tandem Mass Spectrometry 2.7(L) 3.0 - 8.0 ug/L 11/18/2023 2:30 PM CDT [facility] Everolimus Last Dose Date 11/18/2023 2:30 PM CDT [facility] Comment:Last dose informatio n not provided. Everolimus Last Dose Time 11/18/2023 2:30 PM CDT [facility] Comment:Last dose informatio n not provided. Blood BLOOD SPECIMEN / Unknown Venipuncture / Unknown 11/18/2023 6:25 AM CDT 11/18/2023 7:06 AM CDT Narrative [facility] - 11/18/2023 2:30 PM CDT This test was developed and its performance characteristics determined by the [facility], ??Special Chemistry Laboratory. It has not been cleared or approved by the FDA. The laboratory is regulated under CLIA as qualified to perform high-complexity testing. This test is used for clinical purposes. It should not be regarded as investigational or for research. Martha Mora MD LAB - BLO OD ORDERABLES [facility] [address] [facility], [address] [place] [phone], [facility] * (ABNORMAL) Comprehensive metabolic panel (11/17/2023 7:28 AM CDT) [facility] Sodium 136 135 - 145 mmol/L 11/17/2023 8:32 AM CDT [facility] Comment:Reference intervals for this test were updated on 03/18/2023 to more accurately reflect our healthy population. There may be differences in the flagging of prior results with similar values performed with this method. Interpretation of those prior results can be made in the context of the updated reference intervals. Potassium 3.6 3.4 - 5.3 mmol/L 11/17/2023 8:32 AM CDT [facility] Carbon Dioxide (CO2) 23 22 - 29 mmol/L 11/17/2023 8:32 AM CDT [facility] Anion Gap 14 7 - 15 mmol/L 11/17/2023 8:32 AM CDT [facility] Urea Nitrogen 34.7(H) 8.0 - 23.0 mg/dL 11/17/2023 8:32 AM CDT [facility] Creatinine 4.76(H) 0.67 - 1.17 mg/dL 11/17/2023 8:32 AM CDT [facility] GFR Estimate 13(L) >60 mL/min/1. 73m2 11/17/2023 8:32 AM CDT [facility] Calcium 8.3(L) 8.8 - 10.2 mg/dL 11/17/2023 8:32 AM CDT [facility] Chloride 99 98 - 107 mmol/L 11/17/2023 8:32 AM CDT [facility] Glucose 125(H) 70 - 99 mg/dL 11/17/2023 8:32 AM CDT [facility] Alkaline Phosphatase 101 40 - 150 U/L 11/17/2023 8:32 AM CDT [facility] AST 51(H) 0 - 45 U/L 11/17/2023 8:32 AM CDT [facility] Comment:Reference intervals for this test were updated on 12/02/2022 to more accurately reflect our healthy population. There may be differences in the flagging of prior results with similar values performed with this method. Interpretation of those prior results can be made in the context of the updated reference intervals. ALT 38 0 - 70 U/L 11/17/2023 8:32 AM CDT [facility] Comment:Reference intervals for this test were updated on 12/02/2022 to more accurately reflect our healthy population. There may be differences in the flagging of prior results with similar values performed with this method. Interpretation of those prior results can be made in the context of the updated reference intervals. Protein Total 5.9(L) 6.4 - 8.3 g/dL 11/17/2023 8:32 AM CDT [facility] Albumin 3.4(L) 3.5 - 5.2 g/dL 11/17/2023 8:32 AM CDT [facility] Bilirubin Total 0.2 <=1.2 mg/dL 11/17/2023 8:32 AM CDT [facility] Blood STRUCTURE OF LEFT UPPER LIMB / Unknown Venipuncture / Unknown 11/17/2023 7:28 AM CDT 11/17/2023 7:39 AM CDT Martha Lim MD LAB - BLOOD ORDERAB LES UR LABORATORY [facility] Lab [address] [facility], [address] [place] [address] * (ABNORMAL) CBC with platelets (11/17/2023 7:28 AM CDT) WBC Count 4.1 4.0 - 11.0 10e3/uL 11/17/2023 7:44 AM CDT [facility] RBC Count 3.42(L) 4.40 - 5.90 10e6/uL 11/17/2023 7:44 AM CDT [facility] Hemoglobin 9.6(L) 13.3 - 17.7 g/dL 11/17/2023 7:44 AM CDT [facility] Hematocrit 31.4(L) 40.0 - 53.0 % 11/17/2023 7:44 AM CDT [facility] MCV 92 78 - 100 fL 11/17/2023 7:44 AM CDT [facility] MCH 28.1 26.5 - 33.0 pg 11/17/2023 7:44 AM CDT [facility] MCHC 30.6(L) 31.5 - 36.5 g/dL 11/17/2023 7:44 AM CDT [facility] RDW 18.2(H) 10.0 - 15.0 % 11/17/2023 7:44 AM CDT [facility] Platelet Count 212 150 - 450 10e3/uL 11/17/2023 7:44 AM CDT [facility] Blood STRUCTURE OF LEFT UPPER LIMB / Unknown Venipuncture / Unknown 11/17/2023 7:28 AM CDT 11/17/2023 7:39 AM CDT Martha Lim MD LAB - BLOOD ORDERAB LES UR LAB[facility]ATORY [facility] Acute [facility] Lab [address] [facility], [address] [place] [phone] * XR Chest 2 Views (11/16/2023 11:20 AM CDT) Anatomical Region Laterality Modality Chest Computed Radiogr aphy Impressions 11/16/2023 2:00 PM CDT Impression: 1. ??Slightly increased bibasilar streaky opacities, suggestive of atelectasis. 2. ??Possible trace right pleural effusion. I have personally reviewed the examination and initial interpretation and I agree with the findings. JOVANA HAGEN MD Narrative 11/16/2023 2:00 PM CDT Exam: XR CHEST 2 VIEWS, 11/16/2023 11:20 AM Indication: Hx of H flu pneumonia, please eval for pleural effusion Comparison: 06/02/2023 Findings: Upright PA and lateral views of the chest. Trachea is midline. Cardiomediastinal silhouette is within normal limits. Slightly increased bibasilar streaky opacities. No appreciable pneumothorax. Slight blunting of the right costophrenic angle suspected on the lateral radiograph, new from prior radiograph, suggests trace effusion. Visualized portions of the upper abdomen are unremarkable. No acute osseous abnormality. Procedure Note Jovana Hagen - 11/16/2023 Exam: XR CHEST 2 VIEWS, 11/16/2023 11:20 AM Indication: Hx of H flu pneumonia, please eval for pleural effusion Comparison: 06/02/2023 Findings: Upright PA and lateral views of the chest. Trachea is midline. Cardiomediastinal silhouette is within normal limits. Slightly increased bibasilar streaky opacities. No appreciable pneumothorax. Slight blunting of the right costophrenic angle suspected on the lateral radiograph, new from prior radiograph, suggests trace effusion. Visualized portions of the upper abdomen are unremarkable. No acute osseous abnormality. Impression: 1. Slightly increased bibasilar streaky opacities, suggestive of atelectasis. 2. Possible trace right pleural effusion. I have personally reviewed the examination and initial interpretation and I agree with the findings. JOVANA HAGEN MD Ashli Foreman MD IMG DIAGNOSTIC IMAG ING ORDERABLES * Phosphorus (11/16/2023 6:40 AM CDT) Phosphorus 3.3 2.5 - 4.5 mg/dL 11/16/2023 10:02 AM CDT [facility] Blood STRUCTURE OF RIGHT UPPER LIMB / Unknown Venipuncture / Unknown 11/16/2023 6:40 AM CDT 11/16/2023 6:58 AM CDT Lorena Greene DO LAB - BLOOD ORDERABL ES UR LAB[facility]ATORY [facility] Lab [address] [facility], [address] [place] [address] * (ABNORMAL) Comprehensive metabolic panel (11/16/2023 6:40 AM CDT) Sodium 135 135 - 145 mmol/L 11/16/2023 7:30 AM CDT [facility] Comment:Reference intervals for this test were updated on 03/18/2023 to more accurately reflect our healthy population. There may be differences in the flagging of prior results with similar values performed with this method. Interpretation of those prior results can be made in the context of the updated reference intervals. Potassium 3.3(L) 3.4 - 5.3 mmol/L 11/16/2023 7:30 AM CDT [facility] Carbon Dioxide (CO2) 24 22 - 29 mmol/L 11/16/2023 7:30 AM CDT [facility] Anion Gap 13 7 - 15 mmol/L 11/16/2023 7:30 AM CDT [facility] Urea Nitrogen 18.9 8.0 - 23.0 mg/dL 11/16/2023 7:30 AM CDT [facility] Creatinine 3.60(H) 0.67 - 1.17 mg/dL 11/16/2023 7:30 AM CDT [facility] GFR Estimate 18(L) >60 mL/min/1. 73m2 11/16/2023 7:30 AM CDT [facility] Calcium 8.4(L) 8.8 - 10.2 mg/dL 11/16/2023 7:30 AM CDT [facility] Chloride 98 98 - 107 mmol/L 11/16/2023 7:30 AM CDT [facility] Glucose 98 70 - 99 mg/dL 11/16/2023 7:30 AM CDT [facility] Alkaline Phosphatase 105 40 - 150 U/L 11/16/2023 7:30 AM CDT [facility] AST 40 0 - 45 U/L 11/16/2023 7:30 AM CDT [facility] Comment:Reference intervals for this test were updated on 12/02/2022 to more accurately reflect our healthy population. There may be differences in the flagging of prior results with similar values performed with this method. Interpretation of those prior results can be made in the context of the updated reference intervals. ALT 25 0 - 70 U/L 11/16/2023 7:30 AM CDT [facility] Comment:Reference intervals for this test were updated on 12/02/2022 to more accurately reflect our healthy population. There may be differences in the flagging of prior results with similar values performed with this method. Interpretation of those prior results can be made in the context of the updated reference intervals. Protein Total 6.3(L) 6.4 - 8.3 g/dL 11/16/2023 7:30 AM CDT [facility] Albumin 3.6 3.5 - 5.2 g/dL 11/16/2023 7:30 AM CDT [facility] Bilirubin Total 0.3 <=1.2 mg/dL 11/16/2023 7:30 AM CDT [facility] Blood STRUCTURE OF RIGHT UPPER LIMB / Unknown Venipuncture / Unknown 11/16/2023 6:40 AM CDT 11/16/2023 6:58 AM CDT Martha Lim MD LAB - BLOOD ORDERAB LES UR LABORATORY [facility] Acute [facility] Lab [facility], [address] [phone] * (ABNORMAL) CBC with platelets (11/16/2023 6:40 AM CDT) [facility] WBC Count 4.3 4.0 - 11.0 10e3/uL 11/16/2023 7:01 AM CDT [facility] RBC Count 3.74(L) 4.40 - 5.90 10e6/uL 11/16/2023 7:01 AM CDT [facility] Hemoglobin 10.7(L) 13.3 - 17.7 g/dL 11/16/2023 7:01 AM CDT [facility] Hematocrit 34.0(L) 40.0 - 53.0 % 11/16/2023 7:01 AM CDT [facility] MCV 91 78 - 100 fL 11/16/2023 7:01 AM CDT [facility] MCH 28.6 26.5 - 33.0 pg 11/16/2023 7:01 AM CDT [facility] MCHC 31.5 31.5 - 36.5 g/dL 11/16/2023 7:01 AM CDT [facility] RDW 17.8(H) 10.0 - 15.0 % 11/16/2023 7:01 AM CDT [facility] Platelet Count 251 150 - 450 10e3/uL 11/16/2023 7:01 AM CDT [facility] Blood STRUCTURE OF RIGHT UPPER LIMB / Unknown Venipuncture / Unknown 11/16/2023 6:40 AM CDT 11/16/2023 6:58 AM CDT Martha Lim MD LAB - BLOOD ORDERAB LES UR LAB[facility]ATORY [facility], [address] [place] [id number] * C. difficile Toxin B PCR with reflex to C. difficile Antigen and Toxins A/B EIA (11/15/2023 1:18 PMCDT) C Difficile Toxin B by PCR Negative Negative 11/15/2023 6:15 PM CDT [facility] Comment:A negative result do es not exclude actual disease due to C. difficile and may be due to improper collection, handling and storage of the specimen or the number of organisms in the specimen is below the detection limit of the assay. Stool RECTAL CONTENTS / Unknown Non-blood Collection / Unknown 11/15/2023 1:18 PM CDT 11/15/2023 1:24 PM CDT Narrative [facility] - 11/15/2023 6:15 PM CDT The [employer] Xpert C. difficile Assay, performed on the [employer], is a qualitative in vitro diagnostic test for rapid detection of toxin B gene sequences from unformed (liquid or soft) stool specimens collected from patients suspected of having Clostridioides difficile infection (CDI). The test utilizes automated real-time polymerase chain reaction (PCR) to detect toxin gene sequences associated with toxin producing C. difficile. The Xpert C. difficile Assay is intended as an aid in the diagnosis of CDI. Martha Lim MD LAB - MICRO GENERAL ORDERABLES [facility] Inf. Diseases Diag. Lab [address] [facility], [address] [place] [address] * (ABNORMAL) Comprehensive metabolic panel (11/15/2023 7:47 AM CDT) Sodium 137 135 - 145 mmol/L 11/15/2023 8:36 AM CDT [facility] Comment:Reference intervals for this test were updated on 03/18/2023 to more accurately reflect our healthy population. There may be differences in the flagging of prior results with similar values performed with this method. Interpretation of those prior results can be made in the context of the updated reference intervals. Potassium 3.6 3.4 - 5.3 mmol/L 11/15/2023 8:36 AM CDT [facility] Carbon Dioxide (CO2) 23 22 - 29 mmol/L 11/15/2023 8:36 AM CDT [facility] Anion Gap 16(H) 7 - 15 mmol/L 11/15/2023 8:36 AM CDT [facility] Urea Nitrogen 33.8(H) 8.0 - 23.0 mg/dL 11/15/2023 8:36 AM CDT [facility] Creatinine 4.79(H) 0.67 - 1.17 mg/dL 11/15/2023 8:36 AM CDT [facility] GFR Estimate 12(L) >60 mL/min/1. 73m2 11/15/2023 8:36 AM CDT [facility] Calcium 8.2(L) 8.8 - 10.2 mg/dL 11/15/2023 8:36 AM CDT [facility] Chloride 98 98 - 107 mmol/L 11/15/2023 8:36 AM CDT [facility] Glucose 142(H) 70 - 99 mg/dL 11/15/2023 8:36 AM CDT [facility] Alkaline Phosphatase 103 40 - 150 U/L 11/15/2023 8:36 AM CDT [facility] AST 24 0 - 45 U/L 11/15/2023 8:36 AM CDT [facility] Comment:Reference intervals for this test were updated on 12/02/2022 to more accurately reflect our healthy population. There may be differences in the flagging of prior results with similar values performed with this method. Interpretation of those prior results can be made in the context of the updated reference intervals. ALT 16 0 - 70 U/L 11/15/2023 8:36 AM CDT [facility] Comment:Reference intervals for this test were updated on 12/02/2022 to more accurately reflect our healthy population. There may be differences in the flagging of prior results with similar values performed with this method. Interpretation of those prior results can be made in the context of the updated reference intervals. Protein Total 6.4 6.4 - 8.3 g/dL 11/15/2023 8:36 AM CDT [facility] Albumin 3.6 3.5 - 5.2 g/dL 11/15/2023 8:36 AM CDT [facility] Bilirubin Total 0.3 <=1.2 mg/dL 11/15/2023 8:36 AM CDT [facility] Blood STRUCTURE OF LEFT UPPER LIMB / Unknown Venipuncture / Unknown 11/15/2023 7:47 AM CDT 11/15/2023 8:10 AM CDT Martha Lim MD LAB - BLOOD ORDERAB LES UR LABORATORY [facility] Lab [address] [facility], [address] [place] [address] * (ABNORMAL) CBC with platelets (11/15/2023 7:47 AM CDT) Pathologist [facility] WBC Count 3.8(L) 4.0 - 11.0 10e3/uL 11/15/2023 8:13 AM CDT [facility] RBC Count 3.61(L) 4.40 - 5.90 10e6/uL 11/15/2023 8:13 AM CDT [facility] Hemoglobin 10.2(L) 13.3 - 17.7 g/dL 11/15/2023 8:13 AM CDT [facility] Hematocrit 33.1(L) 40.0 - 53.0 % 11/15/2023 8:13 AM CDT [facility] MCV 92 78 - 100 fL 11/15/2023 8:13 AM CDT [facility] MCH 28.3 26.5 - 33.0 pg 11/15/2023 8:13 AM CDT [facility] MCHC 30.8(L) 31.5 - 36.5 g/dL 11/15/2023 8:13 AM CDT [facility] RDW 17.5(H) 10.0 - 15.0 % 11/15/2023 8:13 AM CDT [facility] Platelet Count 249 150 - 450 10e3/uL 11/15/2023 8:13 AM CDT [facility] Blood STRUCTURE OF LEFT UPPER LIMB / Unknown Venipuncture / Unknown 11/15/2023 7:47 AM CDT 11/15/2023 8:10 AM CDT Martha Lim MD LAB - BLOOD ORDERAB LES UR LABORATORY [facility] Lab [address] [facility], [address] [place] [address], [facility] * (ABNORMAL) Comprehensive metabolic panel (11/14/2023 5:56 AM CDT) Sodium 136 135 - 145 mmol/L 11/14/2023 6:46 AM CDT [facility] Comment:Reference intervals for this test were updated on 03/18/2023 to more accurately reflect our healthy population. There may be differences in the flagging of prior results with similar values performed with this method. Interpretation of those prior results can be made in the context of the updated reference intervals. Potassium 3.7 3.4 - 5.3 mmol/L 11/14/2023 6:46 AM CDT [facility] Carbon Dioxide (CO2) 26 22 - 29 mmol/L 11/14/2023 6:46 AM CDT [facility] Anion Gap 12 7 - 15 mmol/L 11/14/2023 6:46 AM CDT [facility] Urea Nitrogen 21.9 8.0 - 23.0 mg/dL 11/14/2023 6:46 AM CDT [facility] Creatinine 3.77(H) 0.67 - 1.17 mg/dL 11/14/2023 6:46 AM CDT [facility] GFR Estimate 17(L) >60 mL/min/1. 73m2 11/14/2023 6:46 AM CDT [facility] Calcium 8.5(L) 8.8 - 10.2 mg/dL 11/14/2023 6:46 AM CDT [facility] Chloride 98 98 - 107 mmol/L 11/14/2023 6:46 AM CDT [facility] Glucose 89 70 - 99 mg/dL 11/14/2023 6:46 AM CDT [facility] Alkaline Phosphatase 105 40 - 150 U/L 11/14/2023 6:46 AM CDT [facility] AST 19 0 - 45 U/L 11/14/2023 6:46 AM CDT [facility] Comment:Reference intervals for this test were updated on 12/02/2022 to more accurately reflect our healthy population. There may be differences in the flagging of prior results with similar values performed with this method. Interpretation of those prior results can be made in the context of the updated reference intervals. ALT 13 0 - 70 U/L 11/14/2023 6:46 AM CDT [facility] Comment:Reference intervals for this test were updated on 12/02/2022 to more accurately reflect our healthy population. There may be differences in the flagging of prior results with similar values performed with this method. Interpretation of those prior results can be made in the context of the updated reference intervals. Protein Total 6.2(L) 6.4 - 8.3 g/dL 11/14/2023 6:46 AM CDT [facility] Albumin 3.6 3.5 - 5.2 g/dL 11/14/2023 6:46 AM CDT [facility] Bilirubin Total 0.3 <=1.2 mg/dL 11/14/2023 6:46 AM CDT [facility] Blood STRUCTURE OF LEFT UPPER LIMB / Unknown Venipuncture / Unknown 11/14/2023 5:56 AM CDT 11/14/2023 6:16 AM CDT Martha Lim MD LAB - BLOOD ORDERAB LES UR LAB[facility]ATORY [facility] Lab [address] [facility], [address] [place] [address], [facility] * (ABNORMAL) CBC with platelets (11/14/2023 5:56 AM CDT) WBC Count 3.8(L) 4.0 - 11.0 10e3/uL 11/14/2023 6:22 AM CDT [facility] RBC Count 3.55(L) 4.40 - 5.90 10e6/uL 11/14/2023 6:22 AM CDT [facility] Hemoglobin 10.0(L) 13.3 - 17.7 g/dL 11/14/2023 6:22 AM CDT [facility] Hematocrit 32.3(L) 40.0 - 53.0 % 11/14/2023 6:22 AM CDT [facility] MCV 91 78 - 100 fL 11/14/2023 6:22 AM CDT [facility] MCH 28.2 26.5 - 33.0 pg 11/14/2023 6:22 AM CDT [facility] MCHC 31.0(L) 31.5 - 36.5 g/dL 11/14/2023 6:22 AM CDT [facility] RDW 17.5(H) 10.0 - 15.0 % 11/14/2023 6:22 AM CDT [facility] Platelet Count 202 150 - 450 10e3/uL 11/14/2023 6:22 AM CDT [facility] Blood STRUCTURE OF LEFT UPPER LIMB / Unknown Venipuncture / Unknown 11/14/2023 5:56 AM CDT 11/14/2023 6:16 AM CDT Martha Lim MD LAB - BLOOD ORDERAB LES UR LAB[facility]ATORY [facility] Lab [address] [place] [address], [address] * Vancomycin level (11/13/2023 5:38 PM CDT) Vancomycin 21.3 ug/mL 11/13/2023 6:00 PM CDT [facility] Comment: Traditional Dosing Therapeutic Range: Trough 10-15 ug/mL Peak 20-40 ug/mL Critical: Greater than 25.0 ug/mL Blood STRUCTURE OF LEFT UPPER LIMB / Unknown Venipuncture / Unknown 11/13/2023 5:38 PM CDT 11/13/2023 5:41 PM CDT Martha Lim MD LAB - BLOOD ORDERAB LES UR LAB[facility] Lab [address] [place] [address], Room [place] [id number] * Blood Culture Arm, Left (11/13/2023 4:41 PM CDT) Culture No Growth 11/18/2023 7:17 PM CDT [facility] Blood STRUCTURE OF LEFT UPPER LIMB / Unknown Venipuncture / Unknown 11/13/2023 4:41 PM CDT 11/13/2023 5:16 PM CDT Martha Lim MD LAB - MICRO GENERAL ORDERABLES [facility] Inf. Diseases Diag. Lab [address] [facility], [address] [place], [place] [id number] * Blood Culture Hand, Left (11/13/2023 4:39 PM CDT) Culture No Growth 11/18/2023 7:17 PM CDT [facility] Blood STRUCTURE OF LEFT HAND / Unknown Venipuncture / Unknown 11/13/2023 4:39 PM CDT 11/13/2023 5:17 PM CDT Martha Lim MD LAB - MICRO GENERAL ORDERABLES [facility] Inf. Diseases Diag. Lab [address] [facility], Room [place] [phone] * Hepatitis B surface antigen (11/13/2023 7:35 AM CDT) Hepatitis B Surface Antigen Nonreactive Nonreactive 11/13/2023 8:19 PM CDT [facility] Blood BLOOD SPECIMEN / Unknown Venipuncture / Unknown 11/13/2023 7:35 AM CDT 11/13/2023 8:16 AM CDT Ana Rivas MD LAB - BLOOD ORDERABL ES [facility] [place] [facility] [address] [facility], [address] [place] [address] * Hepatitis B Surface Antibody (11/13/2023 7:35 AM CDT) Hepatitis B Surface Antibody Reactive 11/13/2023 8:06 PM CDT [facility] Comment:A reactive result in dicates recovery from acute or chronic hepatitis B virus (HBV) infection or acquired immunity from HBV vaccination. This assay does not differentiate between a vaccine-induced immune response and an immune response induced by infection with HBV. A positive total antihepatitis B core result would indicate that the hepatitis B surface antibody response is due to past HBV infection. Hepatitis B Surface Antibody Instrument Value 21.90 <8.5 m[IU]/mL 11/13/2023 8:06 PM CDT [facility] Blood BLOOD SPECIMEN / Unknown Venipuncture / Unknown 11/13/2023 7:35 AM CDT 11/13/2023 8:16 AM CDT Ana Rivas MD LAB - BLOOD ORDERABL ES [facility] Core Lab [address] [facility], [address] [place] [address] * (ABNORMAL) Phosphorus (11/13/2023 7:17 AM CDT) Phosphorus 6.8(H) 2.5 - 4.5 mg/dL 11/13/2023 9:59 AM CDT [facility] Blood BLOOD SPECIMEN / Unknown Venipuncture / Unknown 11/13/2023 7:17 AM CDT 11/13/2023 7:42 AM CDT Ana Rivas MD LAB - BLOOD ORDERABL ES Performing Organization Address City/[facility]/ZIP Co de Phone Number UR [facility] Lab [address] [facility], [address] [place] [address], [facility] * (ABNORMAL) Comprehensive metabolic panel (11/13/2023 7:17 AM CDT) Sodium 133(L) 135 - 145 mmol/L 11/13/2023 8:05 AM CDT [facility] Comment:Reference intervals for this test were updated on 03/18/2023 to more accurately reflect our healthy population. There may be differences in the flagging of prior results with similar values performed with this method. Interpretation of those prior results can be made in the context of the updated reference intervals. Potassium 3.7 3.4 - 5.3 mmol/L 11/13/2023 8:05 AM CDT [facility] Carbon Dioxide (CO2) 21(L) 22 - 29 mmol/L 11/13/2023 8:05 AM CDT [facility] Anion Gap 18(H) 7 - 15 mmol/L 11/13/2023 8:05 AM CDT [facility] Urea Nitrogen 56.9(H) 8.0 - 23.0 mg/dL 11/13/2023 8:05 AM CDT [facility] Creatinine 6.08(H) 0.67 - 1.17 mg/dL 11/13/2023 8:05 AM CDT [facility] GFR Estimate 9(L) >60 mL/min/1. 73m2 11/13/2023 8:05 AM CDT [facility] Calcium 7.6(L) 8.8 - 10.2 mg/dL 11/13/2023 8:05 AM CDT [facility] Chloride 94(L) 98 - 107 mmol/L 11/13/2023 8:05 AM CDT [facility] Glucose 84 70 - 99 mg/dL 11/13/2023 8:05 AM CDT [facility] Alkaline Phosphatase 109 40 - 150 U/L 11/13/2023 8:05 AM CDT [facility] AST 20 0 - 45 U/L 11/13/2023 8:05 AM CDT [facility] Comment:Reference intervals for this test were updated on 12/02/2022 to more accurately reflect our healthy population. There may be differences in the flagging of prior results with similar values performed with this method. Interpretation of those prior results can be made in the context of the updated reference intervals. ALT 14 0 - 70 U/L 11/13/2023 8:05 AM CDT [facility] Comment:Reference intervals for this test were updated on 12/02/2022 to more accurately reflect our healthy population. There may be differences in the flagging of prior results with similar values performed with this method. Interpretation of those prior results can be made in the context of the updated reference intervals. Protein Total 6.2(L) 6.4 - 8.3 g/dL 11/13/2023 8:05 AM CDT [facility] Albumin 3.6 3.5 - 5.2 g/dL 11/13/2023 8:05 AM CDT [facility] Bilirubin Total 0.3 <=1.2 mg/dL 11/13/2023 8:05 AM CDT [facility] Blood BLOOD SPECIMEN / Unknown Venipuncture / Unknown 11/13/2023 7:17 AM CDT 11/13/2023 7:42 AM CDT Martha Lim MD LAB - BLOOD ORDERAB LES UR LABORATORY [facility] Acute Care Lab [address] [facility], Room [address] [address] * (ABNORMAL) CBC with platelets (11/13/2023 7:17 AM CDT) [facility] WBC Count 5.4 4.0 - 11.0 10e3/uL 11/13/2023 7:46 AM CDT UR LABORATORY RBC Count 3.32(L) 4.40 - 5.90 10e6/uL 11/13/2023 7:46 AM CDT UR LABORATORY Hemoglobin 9.4(L) 13.3 - 17.7 g/dL 11/13/2023 7:46 AM CDT UR LABORATORY Hematocrit 29.7(L) 40.0 - 53.0 % 11/13/2023 7:46 AM CDT UR LABORATORY MCV 90 78 - 100 fL 11/13/2023 7:46 AM CDT UR LABORATORY MCH 28.3 26.5 - 33.0 pg 11/13/2023 7:46 AM CDT UR LABORATORY MCHC 31.6 31.5 - 36.5 g/dL 11/13/2023 7:46 AM CDT UR LABORATORY RDW 17.1(H) 10.0 - 15.0 % 11/13/2023 7:46 AM CDT UR LABORATORY Platelet Count 201 150 - 450 10e3/uL 11/13/2023 7:46 AM CDT UR LABORATORY Blood BLOOD SPECIMEN / Unknown Venipuncture / Unknown 11/13/2023 7:17 AM CDT 11/13/2023 7:39 AM CDT Martha Lim MD LAB - BLOOD ORDERAB LES UR LABORATORY [facility] Acute Care Lab [address] [facility], [address] [address], [place] * Cytomegalovirus DNA by PCR, Quantitative (11/13/2023 7:17 AM CDT) CMV DNA IU/mL Not Detected Not Detected IU/mL 11/13/2023 5:02 PM CDT [facility] Blood VENOUS STRUCTURE / Unknown Venipuncture / Unknown 11/13/2023 7:17 AM CDT 11/13/2023 7:42 AM CDT Narrative [facility] - 11/13/2023 5:02 PM CDT The tika?? CMV assay is a FDA-approved in vitro nucleic acid amplification test for the quantification of cytomegalovirus (CMV) DNA in human EDTA plasma using the Yadiel tika?? 6800 instrument for automated viral nucleic acid extraction and purification (silica-based capture technique), followed by PCR amplification and real-time detection. Selective amplification of target nucleic acid from the sample is achieved by the use of target virus-specific forward and reverse primers which are selected from highly conserved regions of the CMV DNA polymerase (UL54) gene. This test is intended for use as an aid in the management of CMV in transplant patients. In patients receiving anti-CMV therapy, serial DNA measurements can be used to assess viral response to treatment. Titer results are reported in International Units/mL (IU/mL). This assay has received FDA approval for the testing of human EDTA plasma only. The [facility] at [facility] has validated the performance characteristics of the tika?? CMV assay for plasma and urine. Martha Lim MD LAB - MICRO GENERAL ORDERABLES [facility] Inf. Diseases Diag. Lab [address] [facility], [address] [place] [address], [facility] * (ABNORMAL) Everolimus by Tandem Mass Spectrometry (11/13/2023 7:17 AM CDT) [facility] Everolimus by Tandem Mass Spectrometry 2.5(L) 3.0 - 8.0 ug/L 11/14/2023 3:01 PM CDT [facility] Everolimus Last Dose Date 11/14/2023 3:01 PM CDT [facility] Comment:Last dose informatio n not provided. Everolimus Last Dose Time 11/14/2023 3:01 PM CDT [facility] Comment:Last dose informatio n not provided. Blood BLOOD SPECIMEN / Unknown Venipuncture / Unknown 11/13/2023 7:17 AM CDT 11/13/2023 7:39 AM CDT Narrative [facility] - 11/14/2023 3:01 PM CDT This test was developed and its performance characteristics determined by the [facility], ??Special Chemistry Laboratory. It has not been cleared or approved by the FDA. The laboratory is regulated under CLIA as qualified to perform high-complexity testing. This test is used for clinical purposes. It should not be regarded as investigational or for research. Martha Lim MD LAB - BLOOD ORDERAB LES [facility] [address] [facility], Room [address] [place] [phone] * Respiratory Panel PCR, Nasopharyngeal (11/12/2023 3:00 PM CDT) Pathologist [facility] [place] Adenovirus Not Detected Not Detected 11/12/2023 9:50 PM CDT [facility] Coronavirus Not Detected Not Detected 11/12/2023 9:50 PM CDT [facility] Comment:This test detects Co ronavirus 229E, HKU1, NL63 and OC43 but does not distinguish between them. It does not detect MERS ( Respiratory Syndrome), SARS (Severe Acute Respiratory Syndrome) or 2019-nCoV (Novel 2018) Coronavirus. Human Metapneumovirus Not Detected Not Detected 11/12/2023 9:50 PM CDT [facility] Human Rhin/Enterovirus Not Detected Not Detected 11/12/2023 9:50 PM CDT [facility] Influenza A Not Detected Not Detected 11/12/2023 9:50 PM CDT [facility] Influenza A, H1 Not Detected Not Detected 11/12/2023 9:50 PM CDT [facility] Influenza A 2009 H1N1 Not Detected Not Detected 11/12/2023 9:50 PM CDT [facility] Influenza A, H3 Not Detected Not Detected 11/12/2023 9:50 PM CDT [facility] Influenza B Not Detected Not Detected 11/12/2023 9:50 PM CDT [facility] Parainfluenza Virus 1 Not Detected Not Detected 11/12/2023 9:50 PM CDT [facility] Parainfluenza Virus 2 Not Detected Not Detected 11/12/2023 9:50 PM CDT [facility] Parainfluenza Virus 3 Not Detected Not Detected 11/12/2023 9:50 PM CDT [facility] Parainfluenza Virus 4 Not Detected Not Detected 11/12/2023 9:50 PM CDT [facility] Respiratory Syncytial Virus A Not Detected Not Detected 11/12/2023 9:50 PM CDT [facility] Respiratory Syncytial Virus B Not Detected Not Detected 11/12/2023 9:50 PM CDT [facility] Chlamydia Pneumoniae Not Detected Not Detected 11/12/2023 9:50 PM CDT [facility] Mycoplasma Pneumoniae Not Detected Not Detected 11/12/2023 9:50 PM CDT [facility] Swab NASOPHARYNGEAL STRUCTURE / Unknown Non-blood Collection / Unknown 11/12/2023 3:00 PM CDT 11/12/2023 3:05 PM CDT Narrative [facility] - 11/12/2023 9:50 PM CDT The ePlex Respiratory Panel is a qualitative nucleic acid, multiplex, in vitro diagnostic test for the simultaneous detection and identification of multiple respiratory viral and bacterial nucleic acids in nasopharyngeal swabs collected in viral transport media from individual exhibiting signs and symptoms of respiratory infection. The assay has received FDA approval for the testing of nasopharyngeal (SENIOR PAINTER) swabs only. The [facility] at [facility] has validated the performance characteristics for bronchial alveolar lavage specimens. This test is used for clinical purposes and should not be regarded as investigational or for research. This laboratory is certified under the Clinical Laboratory Improvement Amendments of 1988 (CLIA-88) as qualified to perform high complexity clinical laboratory testing. Martha Lim MD LAB - MICRO GENERAL ORDERABLES [facility] Inf. Diseases Diag. Lab [address] [facility], [address] [place] [address], [facility] * (ABNORMAL) Verigene GP Panel (11/12/2023 2:27 PM CDT) Pathologist [facility] [place] Staphylococcus species Detected(A) Not Detected 11/13/2023 6:41 PM CDT [facility] Comment:Positive for coagula se-negative Staphylococci, other than Staphylococcus epidermidis and Staphylococcus lugdunensis, by Verigene multiplex nucleic acid test. Coagulase-negative Staphylococci are the most common venipuncture or collection associated skin contaminants grown in blood cultures. Final identification and antimicrobial susceptibility testing will be verified by standard methods. Staphylococcus aureus Not Detected Not Detected 11/13/2023 6:41 PM CDT [facility] Staphylococcus epidermidis Not Detected Not Detected 11/13/2023 6:41 PM CDT [facility] Staphylococcus lugdunensis Not Detected Not Detected 11/13/2023 6:41 PM CDT [facility] Enterococcus faecalis Not Detected Not Detected 11/13/2023 6:41 PM CDT [facility] Enterococcus faecium Not Detected Not Detected 11/13/2023 6:41 PM CDT [facility] Streptococcus species Not Detected Not Detected 11/13/2023 6:41 PM CDT [facility] Streptococcus agalactiae Not Detected Not Detected 11/13/2023 6:41 PM CDT [facility] Streptococcus anginosus group Not Detected Not Detected 11/13/2023 6:41 PM CDT [facility] Streptococcus pneumoniae Not Detected Not Detected 11/13/2023 6:41 PM CDT [facility] Streptococcus pyogenes Not Detected Not Detected 11/13/2023 6:41 PM CDT [facility] Listeria species Not Detected Not Detected 11/13/2023 6:41 PM CDT [facility] Blood STRUCTURE OF LEFT HAND / Unknown Venipuncture / Unknown 11/12/2023 2:27 PM CDT 11/12/2023 2:51 PM CDT Narrative [facility] - 11/13/2023 6:41 PM CDT Specimen tested with Verigene multiplex, gram-positive blood culture nucleic acid test for the following targets: Staphylococcus aureus, Staphylococcus epidermidis, Staphylococcus lugdunensis, other Staphylococcus species, Enterococcus faecalis, Enterococcus faecium, Streptococcus species, Streptococcus agalactiae, Streptococcus anginosus group, Streptococcus pneumoniae, Streptococcus pyogenes, Listeria species, mecA (methicillin resistance), and Ray/vanB (vancomycin resistance). Martha Lim MD LAB - MICRO GENERAL ORDERABLES [facility] LABORATORY [facility] Inf. Diseases Diag. Lab [address] [facility], [address] [place] [address] * (ABNORMAL) Blood Culture Hand, Left (11/12/2023 2:27 PM CDT) Culture Positive on the 1st day of incubation(A) 11/15/2023 7:48 AM CDT [facility] Culture Staphylococcus capitis(AA) 11/15/2023 7:48 AM CDT [facility] Comment:1 of 1 bottles Blood STRUCTURE OF LEFT HAND / Unknown Venipuncture / Unknown 11/12/2023 2:27 PM CDT 11/12/2023 2:51 PM CDT Narrative [facility] - 11/15/2023 7:48 AM CDT Only an Aerobic Blood Culture Bottle was collected, interpret results with caution. Organism Antibiotic Method Susceptibility Staphylococcus capitis Oxacillin DAVID 0.5 ug/mL: Susceptible Comment:Oxacillin [place] sceptible isolates are susceptible to cephalosporins (example: cefazolin and cephalexin) and beta lactam combination agents. Oxacillin resistant isolates are resistant to these agents. Staphylococcus capitis Gentamicin DAVID <=0.5 ug/mL: Susceptible Staphylococcus capitis Ciprofloxacin DAVID <=0.5 ug/mL: Susceptible Staphylococcus capitis Levofloxacin DAVID 0.25 ug/mL: Susceptible Staphylococcus capitis Erythromycin DAVID <=0.25 ug/mL: Susceptible Staphylococcus capitis Clindamycin DAVID 0.25 ug/mL: Susceptible Staphylococcus capitis Vancomycin DAVID 1 ug/mL: Susceptible Staphylococcus capitis Daptomycin DAVID 1 ug/mL: Susceptible Staphylococcus capitis Tetracycline DAVID <=1 ug/mL: Susceptible Staphylococcus capitis Doxycycline DAVID <=0.5 ug/mL: Susceptible Comment:Antibiotics listed a s No Interpretation have no regulatory guidelines for susceptibility/resistance available. Martha Lim MD LAB - MICRO GENERAL ORDERABLES [facility] LAB[facility]ATORY [facility] Inf. Diseases Diag. Lab [address] [facility], Room [address] [phone] * Blood Culture Hand, Left (11/12/2023 2:27 PM CDT) Culture No Growth 11/17/2023 5:01 PM CDT [facility] Blood STRUCTURE OF LEFT HAND / Unknown Venipuncture / Unknown 11/12/2023 2:27 PM CDT 11/12/2023 2:53 PM CDT Martha Lim MD LAB - MICRO GENERAL ORDERABLES Performing Organization Address [facility] Co de Phone Number [facility] Inf. Diseases Diag. Lab [address] [facility], Room [place] [id number] * Legionella pneumophila antigen urine (11/12/2023 12:49 PM CDT) Legionella pneumophila serogroup 1 urinary antigen Negative Negative DAVID 11/12/2023 3:42 PM CDT [facility] Comment:Suggests no recent o r current infection. Infection due to Legionella cannot be ruled out, since other serogroups and species may cause disease, antigen may not be present in urine in early infection, and the level of antigen present in the urine may be below detectable limits of the test. Urine MID-STREAM URINE SPECIMEN / Unknown Non-blood Collection / Unknown 11/12/2023 12:49 PM CDT 11/12/2023 1:37 PM CDT Martha Lim MD LAB - MICRO GENERAL ORDERABLES Performing Organization Address City/[facility]/ZIP Co de Phone Number [facility]ORY [facility] Inf. Diseases Diag. Lab [address] [facility], [address] [phone] * Streptococcus pneumoniae antigen (11/12/2023 12:49 PM CDT) Streptococcus pneumoniae antigen Negative Negative DAVID 11/12/2023 3:42 PM CDT [facility] Comment:A negative Streptoco ccus pneumoniae antigen result does not rule out infection with Streptococcus pneumoniae. Urine MID-STREAM URINE SPECIMEN / Unknown Non-blood Collection / Unknown 11/12/2023 12:49 PM CDT 11/12/2023 1:37 PM CDT Martha Lim MD LAB - MICRO GENERAL ORDERABLES [facility] LAB[facility]ATORY [facility] Inf. Diseases Diag. Lab [address] [facility], [address] [place] [address] * MRSA MSSA PCR, Nasal Swab (11/12/2023 10:12 AM CDT) MRSA Target DNA Negative Negative 11/12/2023 1:35 PM CDT [facility] SA Target DNA Negative 11/12/2023 1:35 PM CDT [facility] Swab BOTH ANTERIOR NARES / Unknown Non-blood Collection / Unknown 11/12/2023 10:12 AM CDT 11/12/2023 10:38 AM CDT Narrative [facility] - 11/12/2023 1:35 PM CDT The Cepheid?? Xpert SA Nasal Complete assay performed in the Gene[employer]wo[employer] Editions?? Dx System is a qualitative in vitro diagnostic test designed for rapid detection of Staphylococcus aureus (SA) and methicillin-resistant Staphylococcus aureus (MRSA) from nasal swabs in patients at risk for nasal colonization. The test utilizes automated real- time polymerase chain reaction (PCR) to detect MRSA/SA DNA. The Xpert SA Nasal Complete assay is intended to aid in the prevention and control of MRSA/SA infections in healthcare settings. The assay is not intended to diagnose, guide or monitor treatment for MRSA/SA infections, or provide results of susceptibility to methicillin. A negative result does not preclude MRSA/SA nasal colonization. Martha Lim MD LAB - MICRO GENERAL ORDERABLES Performing Organization Address City/[facility]/ZIP Co de Phone Number [facility] Inf. Diseases Diag. Lab [address] [facility], [address] * (ABNORMAL) Respiratory Aerobic Bacterial Culture with Gram Stain (11/12/2023 10:07 AM CDT) Culture 1+ Normal Efrem 11/14/2023 9:20 AM CDT [facility] Gram Stain Result >25 PMNs/low power field(A) 11/14/2023 9:20 AM CDT [facility] Gram Stain Result 1+ Gram negative bacilli(A) 11/14/2023 9:20 AM CDT [facility] Gram Stain Result <10 Squamous epithelial cells/low power field(A) 11/14/2023 9:20 AM CDT [facility] Sputum SPUTUM / Unknown Non-blood Collection / Unknown 11/12/2023 10:07 AM CDT 11/12/2023 10:35 AM CDT Martha Lim MD LAB - MICRO GENERAL ORDERABLES Performing Organization Address [facility] Co de Phone Number [facility] Inf. Diseases Diag. Lab [address] [facility], [address] * (ABNORMAL) Comprehensive metabolic panel (11/12/2023 8:44 AM CDT) Sodium 132(L) 135 - 145 mmol/L 11/12/2023 9:24 AM CDT UR LABORATORY Comment:Reference intervals for this test were updated on 03/18/2023 to more accurately reflect our healthy population. There may be differences in the flagging of prior results with similar values performed with this method. Interpretation of those prior results can be made in the context of the updated reference intervals. Potassium 3.9 3.4 - 5.3 mmol/L 11/12/2023 9:24 AM CDT UR LABORATORY Carbon Dioxide (CO2) 23 22 - 29 mmol/L 11/12/2023 9:24 AM CDT UR LABORATORY Anion Gap 19(H) 7 - 15 mmol/L 11/12/2023 9:24 AM CDT UR LABORATORY Urea Nitrogen 54.1(H) 8.0 - 23.0 mg/dL 11/12/2023 9:24 AM CDT UR LABORATORY Creatinine 5.64(H) 0.67 - 1.17 mg/dL 11/12/2023 9:24 AM CDT UR LABORATORY GFR Estimate 10(L) >60 mL/min/1. 73m2 11/12/2023 9:24 AM CDT UR LABORATORY Calcium 8.1(L) 8.8 - 10.2 mg/dL 11/12/2023 9:24 AM CDT UR LABORATORY Chloride 90(L) 98 - 107 mmol/L 11/12/2023 9:24 AM CDT UR LABORATORY Glucose 102(H) 70 - 99 mg/dL 11/12/2023 9:24 AM CDT UR LABORATORY Alkaline Phosphatase 114 40 - 150 U/L 11/12/2023 9:24 AM CDT UR LABORATORY AST 17 0 - 45 U/L 11/12/2023 9:24 AM CDT UR LABORATORY Comment:Reference intervals for this test were updated on 12/02/2022 to more accurately reflect our healthy population. There may be differences in the flagging of prior results with similar values performed with this method. Interpretation of those prior results can be made in the context of the updated reference intervals. ALT 15 0 - 70 U/L 11/12/2023 9:24 AM CDT UR LABORATORY Comment:Reference intervals for this test were updated on 12/02/2022 to more accurately reflect our healthy population. There may be differences in the flagging of prior results with similar values performed with this method. Interpretation of those prior results can be made in the context of the updated reference intervals. Protein Total 6.5 6.4 - 8.3 g/dL 11/12/2023 9:24 AM CDT UR LABORATORY Albumin 3.7 3.5 - 5.2 g/dL 11/12/2023 9:24 AM CDT UR LABORATORY Bilirubin Total 0.4 <=1.2 mg/dL 11/12/2023 9:24 AM CDT UR LABORATORY Blood STRUCTURE OF LEFT HAND / Unknown Venipuncture / Unknown 11/12/2023 8:44 AM CDT 11/12/2023 8:51 AM CDT Martha Lim MD LAB - BLOOD ORDERAB LES UR LABORATORY [facility] Acute Care Lab [address] [facility], Room [place] [id number] [place] [address] * (ABNORMAL) CBC with platelets (11/12/2023 8:44 AM CDT) Pathologist [facility] [place] WBC Count 4.6 4.0 - 11.0 10e3/uL 11/12/2023 8:59 AM CDT UR LABORATORY RBC Count 3.37(L) 4.40 - 5.90 10e6/uL 11/12/2023 8:59 AM CDT UR LABORATORY Hemoglobin 9.5(L) 13.3 - 17.7 g/dL 11/12/2023 8:59 AM CDT UR LABORATORY Hematocrit 30.7(L) 40.0 - 53.0 % 11/12/2023 8:59 AM CDT UR LABORATORY MCV 91 78 - 100 fL 11/12/2023 8:59 AM CDT UR LABORATORY MCH 28.2 26.5 - 33.0 pg 11/12/2023 8:59 AM CDT UR LABORATORY MCHC 30.9(L) 31.5 - 36.5 g/dL 11/12/2023 8:59 AM CDT UR LABORATORY RDW 17.3(H) 10.0 - 15.0 % 11/12/2023 8:59 AM CDT UR LABORATORY Platelet Count 162 150 - 450 10e3/uL 11/12/2023 8:59 AM CDT UR LABORATORY Blood STRUCTURE OF LEFT HAND / Unknown Venipuncture / Unknown 11/12/2023 8:44 AM CDT 11/12/2023 8:51 AM CDT Martha Lim MD LAB - BLOOD ORDERAB LES UR LABORATORY [facility] Acute Care Lab [address] [facility], [address] [phone] * (ABNORMAL) Vancomycin level (11/12/2023 6:02 AM CDT) Vancomycin 35.4(HH) ug/mL 11/12/2023 6:45 AM CDT UR LABORATORY Comment: Traditional Dosing Therapeutic Range: Trough 10-15 ug/mL Peak 20-40 ug/mL Critical: Greater than 25.0 ug/mL Blood STRUCTURE OF LEFT HAND / Unknown Venipuncture / Unknown 11/12/2023 6:02 AM CDT 11/12/2023 6:11 AM CDT Ashli Foreman MD LAB - BLOOD ORDERAB LES UR LABORATORY [facility] Acute Care Lab [address] [facility], [address] [place] [address] * Asymptomatic Influenza A/B, RSV, & SARS-CoV2 PCR (COVID-19) Nasopharyngeal (11/11/2023 11:27 PMCDT) Pathologist [facility] [place] Influenza A PCR Negative Negative 11/12/2023 12:23 AM CDT UR LABORATORY Influenza B PCR Negative Negative 11/12/2023 12:23 AM CDT UR LABORATORY RSV PCR Negative Negative 11/12/2023 12:23 AM CDT UR LABORATORY SARS CoV2 PCR Negative Negative 11/12/2023 12:23 AM CDT UR LABORATORY Comment:NEGATIVE: SARS-CoV-2 (COVID-19) RNA not detected, presumed negative. Swab NASOPHARYNGEAL STRUCTURE / Unknown Non-blood Collection / Unknown 11/11/2023 11:27 PM CDT 11/11/2023 11:38 PM CDT Narrative UR LABORATORY - 11/12/2023 12:23 AM CDT Testing was performed using the Xpert Xpress CoV2/Flu/RSV Assay on the [employer] GeneXpert Instrument. This test should be ordered for the detection of SARS-CoV-2, influenza, and RSV viruses in individuals who meet clinical and/or epidemiological criteria. Test performance is unknown in asymptomatic patients. This test is for in vitro diagnostic use under the FDA EUA for laboratories certified under CLIA to perform high or moderate complexity testing. This test has not been FDA cleared or approved. A negative result does not rule out the presence of PCR inhibitors in the specimen or target RNA in concentration below the limit of detection for the assay. If only one viral target is positive but coinfection with multiple targets is suspected, the sample should be re-tested with another FDA cleared, approved, or authorized test, if coinfection would change clinical management. This test was validated by the [facility]. These laboratories are certified under the Clinical Laboratory Improvement Amendments of 1988 (CLIA-88) as qualified to perform high complexity laboratory testing. Manfred Hou MD LAB - MICRO GENERAL ORDERABLES UR LABORATORY [facility] Acute Care Lab [address] [facility], [address] [place] [address], [facility] * Blood Culture Hand, Left (11/11/2023 9:48 PM CDT) Culture No Growth 11/16/2023 11:31 PM CDT [facility] Blood STRUCTURE OF LEFT HAND / Unknown Venipuncture / Unknown 11/11/2023 9:48 PM CDT 11/11/2023 10:02 PM CDT Manfred Hou MD LAB - MICRO GENERAL ORDERABLES Performing Organization Address City/[facility]/ZIP Co de Phone Number [facility] Inf. Diseases Diag. Lab [address] [facility], [address] [place] [phone], [facility] * Blood Culture Hand, Left (11/11/2023 9:47 PM CDT) Culture No Growth 11/16/2023 11:31 PM CDT [facility] Blood STRUCTURE OF LEFT HAND / Unknown Venipuncture / Unknown 11/11/2023 9:47 PM CDT 11/11/2023 10:02 PM CDT Manfred Hou MD LAB - MICRO GENERAL ORDERABLES [facility]ORY [facility] Inf. Diseases Diag. Lab [address] [facility], [address] [address], [facility] * (ABNORMAL) CBC with platelets and differential (11/11/2023 8:47 PM CDT) WBC Count 5.7 4.0 - 11.0 10e3/uL 11/11/2023 9:18 PM CDT UR LABORATORY RBC Count 3.62(L) 4.40 - 5.90 10e6/uL 11/11/2023 9:18 PM CDT UR LABORATORY Hemoglobin 10.2(L) 13.3 - 17.7 g/dL 11/11/2023 9:18 PM CDT UR LABORATORY Hematocrit 32.7(L) 40.0 - 53.0 % 11/11/2023 9:18 PM CDT UR LABORATORY MCV 90 78 - 100 fL 11/11/2023 9:18 PM CDT UR LABORATORY MCH 28.2 26.5 - 33.0 pg 11/11/2023 9:18 PM CDT UR LABORATORY MCHC 31.2(L) 31.5 - 36.5 g/dL 11/11/2023 9:18 PM CDT UR LABORATORY RDW 17.5(H) 10.0 - 15.0 % 11/11/2023 9:18 PM CDT UR LABORATORY Platelet Count 170 150 - 450 10e3/uL 11/11/2023 9:18 PM CDT UR LABORATORY % Neutrophils 75 % 11/11/2023 9:18 PM CDT UR LABORATORY % Lymphocytes 14 % 11/11/2023 9:18 PM CDT UR LABORATORY % Monocytes 10 % 11/11/2023 9:18 PM CDT UR LABORATORY % Eosinophils 1 % 11/11/2023 9:18 PM CDT UR LABORATORY % Basophils 0 % 11/11/2023 9:18 PM CDT UR LABORATORY % Immature Granulocytes 0 % 11/11/2023 9:18 PM CDT UR LABORATORY NRBCs per 100 WBC 0 <1 /100 024 9:18 PM CDT UR LABORATORY Absolute Neutrophils 4.3 1.6 - 8.3 10e3/uL 11/11/2023 9:18 PM CDT UR LABORATORY Absolute Lymphocytes 0.8 0.8 - 5.3 10e3/uL 11/11/2023 9:18 PM CDT UR LABORATORY Absolute Monocytes 0.6 0.0 - 1.3 10e3/uL 11/11/2023 9:18 PM CDT UR LABORATORY Absolute Eosinophils 0.0 0.0 - 0.7 10e3/uL 11/11/2023 9:18 PM CDT [facility] Absolute Basophils 0.0 0.0 - 0.2 10e3/uL 11/11/2023 9:18 PM CDT [facility] Absolute Immature Granulocytes 0.0 <=0.4 10e3/uL 11/11/2023 9:18 PM CDT [facility] Absolute NRBCs 0.0 10e3/uL 11/11/2023 9:18 PM CDT [facility] Blood STRUCTURE OF LEFT HAND / Unknown Venipuncture / Unknown 11/11/2023 8:47 PM CDT 11/11/2023 9:14 PM CDT Manfred Hou MD LAB - BLOOD ORDERABL ES [facility] [address] [facility], [address] [place] [id number] * (ABNORMAL) Comprehensive metabolic panel (11/11/2023 8:47 PM CDT) Sodium 130(L) 135 - 145 mmol/L 11/11/2023 9:37 PM CDT [facility] Comment:Reference intervals for this test were updated on 03/18/2023 to more accurately reflect our healthy population. There may be differences in the flagging of prior results with similar values performed with this method. Interpretation of those prior results can be made in the context of the updated reference intervals. Potassium 4.5 3.4 - 5.3 mmol/L 11/11/2023 9:37 PM CDT [facility] Carbon Dioxide (CO2) 26 22 - 29 mmol/L 11/11/2023 9:37 PM CDT [facility] Anion Gap 14 7 - 15 mmol/L 11/11/2023 9:37 PM CDT [facility] Urea Nitrogen 50.9(H) 8.0 - 23.0 mg/dL 11/11/2023 9:37 PM CDT [facility] Creatinine 5.00(H) 0.67 - 1.17 mg/dL 11/11/2023 9:37 PM CDT [facility] GFR Estimate 12(L) >60 mL/min/1. 73m2 11/11/2023 9:37 PM CDT [facility] Calcium 8.2(L) 8.8 - 10.2 mg/dL 11/11/2023 9:37 PM CDT [facility] Chloride 90(L) 98 - 107 mmol/L 11/11/2023 9:37 PM CDT [facility] Glucose 124(H) 70 - 99 mg/dL 11/11/2023 9:37 PM CDT [facility] Alkaline Phosphatase 123 40 - 150 U/L 11/11/2023 9:37 PM CDT [facility] AST 18 0 - 45 U/L 11/11/2023 9:37 PM CDT [facility] Comment:Reference intervals for this test were updated on 12/02/2022 to more accurately reflect our healthy population. There may be differences in the flagging of prior results with similar values performed with this method. Interpretation of those prior results can be made in the context of the updated reference intervals. ALT 15 0 - 70 U/L 11/11/2023 9:37 PM CDT [facility] Comment:Reference intervals for this test were updated on 12/02/2022 to more accurately reflect our healthy population. There may be differences in the flagging of prior results with similar values performed with this method. Interpretation of those prior results can be made in the context of the updated reference intervals. Protein Total 6.9 6.4 - 8.3 g/dL 11/11/2023 9:37 PM CDT [facility] Albumin 4.1 3.5 - 5.2 g/dL 11/11/2023 9:37 PM CDT [facility] Bilirubin Total 0.6 <=1.2 mg/dL 11/11/2023 9:37 PM CDT [facility] Blood STRUCTURE OF LEFT HAND / Unknown Venipuncture / Unknown 11/11/2023 8:47 PM CDT 11/11/2023 9:14 PM CDT Manfred Hou MD LAB - BLOOD ORDERABL ES [facility] [address] [facility], [address] [place] [id number] documented in this encounter Visit Diagnoses Diagnosis Bacteremia- Primary History of liver transplant (H) Liver replaced by transplant History of Clostridioides difficile colitis Pneumonia Pneumonia, organism unspecified documented in this encounter Administered Medications Inactive Administered Medications - up to 3 most recent administrations Medication Order MAR Action Action Date Dose Rate Site acetaminophen (TYLENOL) tablet 650 mg 650 mg, Oral, EVERY 4 HOURS PRN, mild pain, fever, Starting on Fri11/11/23 at 2129, Maximum acetaminophen dose from all sources = 75 mg/kg/day not to exceed 4 grams/day. $Given 11/13/2023 6:33 AM CDT 650 mg $Given 11/12/2023 12:11 AM CDT 650 mg albuterol (PROVENTIL HFA/VENTOLIN HFA) inhaler 2 puff, Inhalation, EVERY 6 HOURS PRN, wheezing, Starting on Fri11/11/23 at 2133, Check the dose counter on the inhaler to ensure there are doses remaining before administering. Prime by spraying into the air 4 times prior to first use and if not used within 2 weeks. atorvastatin (LIPITOR) tablet 10 mg 10 mg, Oral, DAILY, First dose on Fri11/12/23 at 0800 $Given 11/18/2023 8:09 AM CDT 10 mg $Given 11/17/2023 7:52 AM CDT 10 mg $Given 11/16/2023 8:33 AM CDT 10 mg azaTHIOprine (IMURAN) tablet 50 mg 50 mg, Oral, 2 TIMES DAILY, First dose on Fri11/11/23 at 2200, On hold since Fri11/12/2023 at 1328 until manually unheld $Given 11/12/2023 8:00 AM CDT 50 mg $Given 11/11/2023 11:19 PM CDT 50 mg benzocaine-menthol (CHLORASEPTIC) 6-10 MG lozenge 1 lozenge 1 lozenge, Buccal, EVERY 1 HOUR PRN, sore throat, Starting on Fri11/13/23 at 0459 $Given 11/14/2023 4:10 AM CDT 1 lozenge $Given 11/14/2023 1:48 AM CDT 1 lozenge $Given 11/13/2023 8:01 PM CDT 1 lozenge cefTRIAXone (ROCEPHIN) 2 g vial to attach to NS 100 ml bag for ADULTS or NS 50 ml bag for PEDS Routine, 2 g, Intravenous, EVERY 24 HOURS, First dose on Fri11/16/23 at 2100, For 2 doses, Indications: Community Acquired Pneumonia $New Bag 11/17/2023 9:08 PM CDT 2 g $New Bag 11/16/2023 9:22 PM CDT 2 g doxycycline (VIBRAMYCIN) 100 mg vial to attach to NS 100 mL bag Routine, 100 mg, Intravenous, EVERY 12 HOURS, First dose on Fri11/12/23 at 1400, Indications: Community Acquired Pneumonia $New Bag 11/14/2023 12:40 PM CDT 100 mg 1 00 mL/hr $New Bag 11/13/2023 11:57 PM CDT 100 mg $New Bag 11/13/2023 3:37 PM CDT 100 mg doxycycline (VIBRAMYCIN) 100 mg vial to attach to NS 100 mL bag Routine, 100 mg, Intravenous, EVERY 12 HOURS, First dose (after last modification) on Fri11/15/23 at 0000, For 1 dose, Indications: Community Acquired Pneumonia $New Bag 11/15/2023 12:39 AM CDT 100 mg epoetin michelle-epbx (RETACRIT) injection 4,000 Units 4,000 Units, Intravenous, ONCE, On 11/15/23 at 0730, For 1 dose, Give during dialysis., Dialysis $Given 11/15/2023 11:33 AM CDT 4,000 Units epoetin michelle-epbx (RETACRIT) injection 4,000 Units 4,000 Units, Intravenous, ONCE IN DIALYSIS/CRRT, On 11/17/23 at 0830, For 1 dose, Give during dialysis., Dialysis $Given 11/17/2023 3:26 PM CDT 4,000 Units everolimus (ZORTRESS) tablet 1 mg 1 mg, Oral, 2 TIMES DAILY, First dose on Fri11/11/23 at 2230 $Given 11/18/2023 8:09 AM CDT 1 mg $Given 11/17/2023 7:51 PM CDT 1 mg $Given 11/17/2023 7:52 AM CDT 1 mg heparin ANTICOAGULANT injection 5,000 Units 5,000 Units, Subcutaneous, EVERY 8 HOURS, First dose on Fri11/11/23 at 2230, HOLD heparin IF platelet count falls below 50% baseline or less than 100,000 / ??L and notify provider. Use this product If CrCl less than 30 mL/min. High concentration heparin. Not for line flush or cath care. $Given 11/18/2023 6:26 AM CDT 5,000 Units $Given 11/17/2023 10:40 PM CDT 5,000 Units $Given 11/17/2023 3:12 PM CDT 5,000 Units hydrALAZINE (APRESOLINE) injection 10 mg 10 mg, Intravenous, EVERY 6 HOURS PRN, high blood pressure, SBP >180, Administer over 1 Minutes, Starting on Shraddha 11/13/23 at 1551 $Given 11/15/2023 10:06 PM CDT 10 mg $Given 11/13/2023 7:49 PM CDT 10 mg HYDROmorphone (DILAUDID) tablet 2 mg 2 mg, Oral, EVERY 3 HOURS PRN, severe pain, Starting on 11/11/23 at 2122, Separate opioids 1 hour apart from any other sedative. Hold for RASS-2. Hold for confusion/somnolence. $Given 11/11/2023 10:45 PM CDT 2 mg HYDROmorphone (DILAUDID) tablet 2 mg 2 mg, Oral, EVERY 3 HOURS PRN, moderate pain, Starting on e 11/11/23 at 2351, Separate opioids 1 hour apart from any other sedative. Hold for RASS-2. Hold for confusion/somnolence. HYDROmorphone (DILAUDID) tablet 4 mg 4 mg, Oral, EVERY 3 HOURS PRN, severe pain, Starting on Fri11/11/23 at 2351, Separate opioids 1 hour apart from any other sedative. Hold for RASS-2. Hold for confusion/somnolence. $Given 11/12/2023 7:59 AM CDT 4 mg $Given 11/12/2023 1:46 AM CDT 4 mg ipratropium - albuterol 0.5 mg/2.5 mg/3 mL (DUONEB) neb solution 3 mL 3 mL, Nebulization, EVERY 4 HOURS PRN, wheezing, shortness of breath, Starting on e 11/11/23 at 2142 ipratropium - albuterol 0.5 mg/2.5 mg/3 mL (DUONEB) neb solution 3 mL 3 mL, Nebulization, ONCE, On Fri11/16/23 at 1100, For 1 dose $Given 11/16/2023 2:43 PM CDT 3 mLs lamoTRIgine (LaMICtal) tablet 200 mg 200 mg, Oral, 2 TIMES DAILY, First dose on Fri11/11/23 at 2200 $Given 11/18/2023 8:08 AM CDT 200 mg $Given 11/17/2023 7:50 PM CDT 200 mg $Given 11/17/2023 7:46 AM CDT 200 mg levothyroxine (SYNTHROID/LEVOTHROID) tablet 75 mcg 75 mcg, Oral, DAILY, First dose on Fri11/12/23 at 0800, Separate oral administration of iron- or calcium-containing products and levothyroxine by at least 4 hours. $Given 11/18/2023 8:07 AM CDT 75 mcg $Given 11/17/2023 7:51 AM CDT 75 mcg $Given 11/16/2023 8:34 AM CDT 75 mcg Lidocaine (LIDOCARE) 4 % Patch 1 patch 1 patch, Transdermal, EVERY 24 HOURS 1999, Administer over 12 Hours, First dose on Fri11/11/23 at 2200, Apply patch(s) to left chest wall. To prevent lidocaine toxicity, patient should be patch free for 12 hrs daily. Patches may be cut to smaller size prior to removing release liner. Reminder: Remove previous patch before applying new patch. NEVER APPLY HEAT OVER PATCH which increases absorption and may lead to local anesthetic toxicity. Do not apply over area where liposomal bupivacaine was injected for 96 hours post injection. $Patch/Med Applied 11/11/2023 10:25 PM CDT 1 patch Other (see comments) loratadine (CLARITIN) tablet 10 mg 10 mg, Oral, DAILY, First dose on Fri11/13/23 at 0800 $Given 11/18/2023 8:07 AM CDT 10 mg $Given 11/17/2023 7:51 AM CDT 10 mg $Given 11/16/2023 8:35 AM CDT 10 mg melatonin tablet 3 mg 3 mg, Oral, AT BEDTIME PRN, sleep, Starting on Fri11/16/23 at 1055 montelukast (SINGULAIR) tablet 10 mg 10 mg, Oral, AT BEDTIME, First dose on Fri11/11/23 at 2230 $Given 11/17/2023 9:08 PM CDT 10 mg $Given 11/16/2023 9:22 PM CDT 10 mg $Given 11/15/2023 9:45 PM CDT 10 mg multivitamin RENAL (RENAVITE RX/NEPHROVITE) tablet 1 tablet 1 tablet, Oral, DAILY WITH SUPPER, First dose on Fri11/11/23 at 2200 $Given 11/17/2023 7:04 PM CDT 1 tablet $Given 11/16/2023 4:55 PM CDT 1 tablet $Given 11/15/2023 4:27 PM CDT 1 tablet naloxone (NARCAN) injection 0.2 mg 0.2 mg, Intravenous, EVERY 2 MIN PRN, opioid reversal, Starting on Fri11/11/23 at 4, Administer intravenous route when available and notify provider when administered. For unintended sedation or respiratory depression if all of the below criteria are met: ~ respiratory rate LESS than or EQUAL to 8. ~SaO2 less than 92% and or/end-tidal CO2 is greater than 50. ~ the patient is receiving an opioid, has unintended sedations assessed as RASS (-3), and is currently not on mechanical ventilation. RASS scale moderate (-3) is movement or eye opening to voice but no eye contact. Patient Monitoring Once the patient has demonstrated a response to the naloxone, continue to monitor respiratory rate, depth, oxygen saturation and end-tidal CO2 (if available) every 15 minutes x 2, then every 30 minutes x 2, then every 1 hour x 1 after each naloxone dose. Consider transfer to ICU if patient respiratory parameters have not improved after 4 naloxone doses. naloxone (NARCAN) injection 0.2 mg 0.2 mg, Intramuscular, EVERY 2 MIN PRN, opioid reversal, Starting on Fri11/11/23 at 2134, Administer intramuscular if an intravenous route is not available and notify provider when administered. For unintended sedation or respiratory depression if all of the below criteria are met: ~ respiratory rate LESS than or EQUAL to 8. ~SaO2 less than 92% and or/end-tidal CO2 is greater than 50. ~ the patient is receiving an opioid, has unintended sedations assessed as RASS (-3), and is currently not on mechanical ventilation. RASS scale moderate (-3) is movement or eye opening to voice but no eye contact. Patient Monitoring Once the patient has demonstrated a response to the naloxone, continue to monitor respiratory rate, depth, oxygen saturation and end-tidal CO2 (if available) every 15 minutes x 2, then every 30 minutes x 2, then every 1 hour x 1 after each naloxone dose. Consider transfer to ICU if patient respiratory parameters have not improved after 4 naloxone doses. naloxone (NARCAN) injection 0.4 mg 0.4 mg, Intravenous, EVERY 2 MIN PRN, opioid reversal, Starting on Fri11/11/23 at 2133, Administer intravenous route when available and notify provider when administered. For unintended sedation or respiratory depression if all of the below criteria are met: ~ respiratory rate LESS than or EQUAL to 8. ~ SaO2 less than 92% and or/end-tidal CO2 is greater than 50. ~ the patient is receiving an opioid, has unintended sedation assessed as RASS (-4) or (-5) and patient is currently not on mechanical ventilation. RASS scale (-4) is deep sedation with no response to voice but movement or eye opening to physical stimulation. RASS scale (-5) is unarousable. Patient Monitoring Once the patient has demonstrated a response to the naloxone, continue to monitor respiratory rate, depth, oxygen saturation and end-tidal CO2 (if available) every 15 minutes x 2, then every 30 minutes x 2, then every 1 hour x 1 after each naloxone dose. Consider transfer to ICU if patient respiratory parameters have not improved after 4 naloxone doses. naloxone (NARCAN) injection 0.4 mg 0.4 mg, Intramuscular, EVERY 2 MIN PRN, opioid reversal, Starting on Fri11/11/23 at 2133, Administer intramuscular if an intravenous route is not available and notify provider when administered. For unintended sedation or respiratory depression if all of the below criteria are met: ~ respiratory rate LESS than or EQUAL to 8. ~ SaO2 less than 92% and or/end-tidal CO2 is greater than 50. ~ the patient is receiving an opioid, has unintended sedation assessed as RASS (-4) or (-5) and patient is currently not on mechanical ventilation. RASS scale (-4) is deep sedation with no response to voice but movement or eye opening to physical stimulation. RASS scale (-5) is unarousable. Patient Monitoring Once the patient has demonstrated a response to the naloxone, continue to monitor respiratory rate, depth, oxygen saturation and end-tidal CO2 (if available) every 15 minutes x 2, then every 30 minutes x 2, then every 1 hour x 1 after each naloxone dose. Consider transfer to ICU if patient respiratory parameters have not improved after 4 naloxone doses. NIFEdipine ER OSMOTIC (PROCARDIA XL) 24 hr tablet 30 mg 30 mg, Oral, DAILY, First dose on 11/12/23 at 1999, DO NOT CRUSH. $Given 11/12/2023 8:12 PM CDT 30 mg NIFEdipine ER OSMOTIC (PROCARDIA XL) 24 hr tablet 90 mg 90 mg, Oral, DAILY, First dose (after last modification) on Shraddha 11/13/23 at 2000, DO NOT CRUSH. $Given 11/17/2023 7:50 PM CDT 90 mg $Given 11/16/2023 8:00 PM CDT 90 mg $Given 11/15/2023 8:01 PM CDT 90 mg No heparin via hemodialysis machine ONCE, 1 dose, On Fri11/17/23 at 0830, Normal saline flushes may be used to maintain patency of circuit., Dialysis $Given 11/17/2023 2:37 PM CDT ondansetron (ZOFRAN ODT) ODT tab 4 mg 4 mg, Oral, EVERY 6 HOURS PRN, nausea, vomiting, Starting on Fri11/11/23 at 2128, This is Step 1 of nausea and vomiting management. If nausea not resolved in 15 minutes, go to Step 2 prochlorperazine (COMPAZINE). With dry hands, peel back foil backing and gently remove tablet. Do not push oral disintegrating tablet through foil backing. Administer immediately on tongue and oral disintegrating tablet dissolves in seconds, then swallow with saliva. Liquid not required. $Given 11/13/2023 3:37 PM CDT 4 mg ondansetron (ZOFRAN) injection 4 mg 4 mg, Intravenous, EVERY 6 HOURS PRN, nausea, vomiting, Administer over 2-5 Minutes, Starting on Fri11/11/23 at 2128, Give IF patient unable to tolerate oral medication. This is Step 1 of nausea and vomiting management. If nausea not resolved in 15 minutes, go to Step 2 prochlorperazine (COMPAZINE). Irritant. piperacillin-tazobactam (ZOSYN) 2.25 g vial to attach to NS 100 ml bag Routine, 2.25 g, Intravenous, EVERY 6 HOURS, First dose on Fri11/11/23 at 2200, For 19 doses, Increased frequency from q8h to q6h due to HAP/noscomial pneumonia Lactated Ringer's solution is not compatible with piperacillin-tazobactam for injection., Indications: Bacteremia, Hospital-Acquired Pneumonia $New Bag 11/16/2023 2:39 PM CDT 2.25 g $New Bag 11/16/2023 8:38 AM CDT 2.25 g 200 mL/hr $New Bag 11/16/2023 2:29 AM CDT 2.25 g predniSONE (DELTASONE) tablet 5 mg 5 mg, Oral, DAILY, First dose on Fri11/12/23 at 0800 $Given 11/18/2023 8:08 AM CDT 5 mg $Given 11/17/2023 7:51 AM CDT 5 mg $Given 11/16/2023 8:35 AM CDT 5 mg prochlorperazine (COMPAZINE) injection 5 mg 5 mg, Intravenous, EVERY 6 HOURS PRN, nausea, vomiting, Administer over 1-2 Minutes, Starting on Fri11/11/23 at 2128, IF patient unable to tolerate oral medication. This is Step 2 of nausea and vomiting management. Give if nausea not resolved 15 minutes after giving ondansetron (ZOFRAN). prochlorperazine (COMPAZINE) suppository 12.5 mg 12.5 mg, Rectal, EVERY 12 HOURS PRN, nausea, vomiting, Starting on Fri11/11/23 at 2128, This is Step 2 of nausea and vomiting management. Give if nausea not resolved 15 minutes after giving ondansetron (ZOFRAN). prochlorperazine (COMPAZINE) tablet 5 mg 5 mg, Oral, EVERY 6 HOURS PRN, vomiting, Starting on Fri11/11/23 at 2128, This is Step 2 of nausea and vomiting management. Give if nausea not resolved 15 minutes after giving ondansetron (ZOFRAN). senna-docusate (SENOKOT-S/PERICOLACE) 8.6-50 MG per tablet 1 tablet 1 tablet, Oral, 2 TIMES DAILY PRN, constipation, Starting on Fri11/11/23 at 2127, If no bowel movement in 24 hours, increase to 2 tablets by mouth. IF more than 1 constipation PRN medication is ordered, administer step-sierra as indicated, moving to the next step ONLY if prior step ineffective. Step 1: senna-docusate (SENOKOT-S; PERICOLACE) OR bisacodyl (DULCOLAX) EC tablet Step 2: polyethylene glycol (MIRALAX/GLYCOLAX) Step 3: bisacodyl (DULCOLAX) suppository Step 4: enema Hold for loose stools. $Given 11/12/2023 1:46 AM CDT 1 table t senna-docusate (SENOKOT-S/PERICOLACE) 8.6-50 MG per tablet 2 tablet 2 tablet, Oral, 2 TIMES DAILY PRN, constipation, Starting on Fri11/11/23 at 2127, IF more than 1 constipation PRN medication is ordered, administer step-sierra as indicated, moving to the next step ONLY if prior step ineffective. Step 1: senna-docusate (SENOKOT-S; PERICOLACE) OR bisacodyl (DULCOLAX) EC tablet Step 2: polyethylene glycol (MIRALAX/GLYCOLAX) Step 3: bisacodyl (DULCOLAX) suppository Step 4: enema Hold for loose stools. sodium chloride (PF) 0.9% PF flush 3 mL 3 mL, Intracatheter, EVERY 8 HOURS, First dose on Fri11/11/23 at 2200, to lock peripheral IV dormant line $Given 11/17/2023 9:08 PM CDT 3 mLs $Given 11/17/2023 3:16 PM CDT 3 mLs $Given 11/17/2023 5:59 AM CDT 3 mLs sodium chloride 0.9% BOLUS 250 mL Intravenous, 250 mL, ONCE IN DIALYSIS/CRRT, On Shraddha 11/13/23 at 0700, For 1 dose, For patient prime during dialysis, Dialysis $New Bag 11/13/2023 8:20 AM CDT 250 mLs sodium chloride 0.9% BOLUS 250 mL Intravenous, 250 mL, ONCE IN DIALYSIS/CRRT, On 11/15/23 at 0730, For 1 dose, For patient prime during dialysis, Dialysis $New Bag 11/15/2023 8:33 AM CDT 250 mLs sodium chloride 0.9% BOLUS 250 mL Intravenous, 250 mL, ONCE IN DIALYSIS/CRRT, On 11/17/23 at 0830, For 1 dose, For patient prime during dialysis, Dialysis $New Bag 11/17/2023 2:36 PM CDT 250 mLs sodium chloride 0.9% BOLUS 300 mL Hemodialysis Machine, 300 mL, ONCE, On Shraddha 11/13/23 at 0700, For 1 dose, For Dialyzer Prime. (In Dialyzer), Dialysis $New Bag 11/13/2023 8:19 AM CDT 3 00 mLs sodium chloride 0.9% BOLUS 300 mL Hemodialysis Machine, 300 mL, ONCE, On 11/15/23 at 0730, For 1 dose, For Dialyzer Prime. (In Dialyzer), Dialysis $New Bag 11/15/2023 8:33 AM CDT 3 00 mLs sodium chloride 0.9% BOLUS 300 mL Hemodialysis Machine, 300 mL, ONCE, On 11/17/23 at 0830, For 1 dose, For Dialyzer Prime. (In Dialyzer), Dialysis $New Bag 11/17/2023 2:36 PM CDT 3 00 mLs torsemide (DEMADEX) tablet 100 mg 100 mg, Oral, 2 TIMES DAILY (Diuretics and Nitrates), First dose on Fri11/11/23 at 2230, Hold for SBP under 110 $Given 11/18/2023 8:08 AM CDT 100 mg $Given 11/17/2023 7:04 PM CDT 100 mg $Given 11/17/2023 7:51 AM CDT 100 mg traZODone (DESYREL) tablet 100 mg 100 mg, Oral, AT BEDTIME, First dose (after last modification) on Fri11/16/23 at 2200 $Given 11/17/2023 9:07 PM CDT 10 0 mg $Given 11/16/2023 9:22 PM CDT 100 mg traZODone (DESYREL) tablet 50 mg 50 mg, Oral, AT BEDTIME, First dose on Fri11/16/23 at 0200 $Given 11/16/2023 2:29 AM CDT 50 mg vancomycin (VANCOCIN) capsule 125 mg Routine, 125 mg, Oral, 2 TIMES DAILY, First dose on Fri11/16/23 at 0800, Indications: C diff prophylaxis $Given 11/18/2023 8:08 AM CDT 125 mg $Given 11/17/2023 7:50 PM CDT 125 mg $Given 11/17/2023 7:47 AM CDT 125 mg documented in this encounter Active and Recently Administered Medications Times are shown in CDT. Scheduled Medication Order 11/16/2023 11/17/2023 11/18/2023 atorvastatin (LIPITOR) tablet 10 mg 10 mg, Oral, DAILY, First dose on Fri11/12/23 at 0800 0833 ($Given - Provider: Adriana Garcia, CATARINA) 0752 ($Given - Provider: Adriana Garcia, CATARINA) 0809 ($Given - Provider: Demian Cr RN) azaTHIOprine (IMURAN) tablet 50 mg 50 mg, Oral, 2 TIMES DAILY, First dose on Fri11/11/23 at 2200, On hold since Fri11/12/2023 at 1328 until manually unheld 0800 (Automatically Held - Provider: Martha Lim MD)1999 (Automatically Held - Provider: Martha Lim MD) 0800 (Automatically Held - Provider: Martha Lim MD)1999 (Automatically Held - Provider: Martha Lim MD) 0800 (Automatically Held)1242 (Unheld by provider - Provider: Orders Generic Provider) cefTRIAXone (ROCEPHIN) 2 g vial to attach to NS 100 ml bag for ADULTS or NS 50 ml bag for PEDS (COMPLETED) Routine, 2 g, Intravenous, EVERY 24 HOURS, First dose on Fri11/16/23 at 2100, For 2 doses, Indications: Community Acquired Pneumonia 2121 ($New Bag - Provider: Martina Hamm RN) 210 ($New Bag - Provider: Sharlene Troy, CATARINA) epoetin michelle-epbx (RETACRIT) injection 4,000 Units (COMPLETED) 4,000 Units, Intravenous, ONCE IN DIALYSIS/CRRT, On Fri11/17/23 at 0830, For 1 dose, Give during dialysis., Dialysis 1526 ($Given - Provider: Caryl No RN) everolimus (ZORTRESS) tablet 1 mg 1 mg, Oral, 2 TIMES DAILY, First dose on Fri11/11/23 at 2230 0837 ($Given - Provider: Adriana Garcia RN)2000 ($Given - Provider: Martina Hamm RN) 0752 ($Given - Provider: Adriana Garcia RN)1951 ($Given - Provider: Sharlene Troy RN) 0809 ($Given - Provider: Demian Cr RN) heparin ANTICOAGULANT injection 5,000 Units 5,000 Units, Subcutaneous, EVERY 8 HOURS, First dose on Fri11/11/23 at 2230, HOLD heparin IF platelet count falls below 50% baseline or less than 100,000 / ??L and notify provider. Use this product If CrCl less than 30 mL/min. High concentration heparin. Not for line flush or cath care. 0609 ($Given - Provider: Martina Hamm RN)1437 ($Given - Provider: Adriana Garcia RN)2232 ($Given - Provider: Martina Hamm RN) 0558 ($Given - Provider: Martina Hamm RN)1512 ($Given - Provider: Adriana Garcia RN)2240 ($Given - Provider: Sharlene Troy RN) 0626 ($Given - Provider: Sharlene Troy RN) ipratropium - albuterol 0.5 mg/2.5 mg/3 mL (DUONEB) neb solution 3 mL (COMPLETED) 3 mL, Nebulization, ONCE, On Fri11/16/23 at 1100, For 1 dose 1443 ($Given - Provider: Asya Millard, RT) lamoTRIgine (LaMICtal) tablet 200 mg 200 mg, Oral, 2 TIMES DAILY, First dose on Fri11/11/23 at 2200 0834 ($Given - Provider: Adriana Garcia RN)2000 ($Given - Provider: Martina Hamm RN) 0746 ($Given - Provider: Adriana Garcia RN)1950 ($Given - Provider: Sharlene Troy RN) 0808 ($Given - Provider: Demian Cr RN) levothyroxine (SYNTHROID/LEVOTHROID) tablet 75 mcg 75 mcg, Oral, DAILY, First dose on Fri11/12/23 at 0800, Separate oral administration of iron- or calcium-containing products and levothyroxine by at least 4 hours. 0834 ($Given - Provider: Adriana Garcia RN) 0751 ($Given - Provider: Adriana Garcia RN) 0807 ($Given - Provider: Demian Cr RN) Lidocaine (LIDOCARE) 4 % Patch 1 patch 1 patch, Transdermal, EVERY 24 HOURS 1999, Administer over 12 Hours, First dose on Fri11/11/23 at 2200, Apply patch(s) to left chest wall. To prevent lidocaine toxicity, patient should be patch free for 12 hrs daily. Patches may be cut to smaller size prior to removing release liner. Reminder: Remove previous patch before applying new patch. NEVER APPLY HEAT OVER PATCH which increases absorption and may lead to local anesthetic toxicity. Do not apply over area where liposomal bupivacaine was injected for 96 hours post injection. 2001 (Not Given - Provider: Martina Hamm RN - Reason: Patient/family refused) 1953 (Not Given - Provider: Sharlene Troy RN - Reason: Patient/family refused) loratadine (CLARITIN) tablet 10 mg 10 mg, Oral, DAILY, First dose on Fri11/13/23 at 0800 0835 ($Given - Provider: Adriana Garcia RN) 0751 ($Given - Provider: Adriana Garcia RN) 0807 ($Given - Provider: Demian Cr RN) montelukast (SINGULAIR) tablet 10 mg 10 mg, Oral, AT BEDTIME, First dose on Fri11/11/23 at 2230 2122 ($Given - Provider: Martina Hamm RN) 2108 ($Given - Provider: Sharlene Troy, CATARINA) multivitamin RENAL (RENAVITE RX/NEPHROVITE) tablet 1 tablet 1 tablet, Oral, DAILY WITH SUPPER, First dose on Fri11/11/23 at 2200 1655 ($Given - Provider: Adriana Garcia RN) 1904 ($Given - Provider: Adriana Garcia RN) NIFEdipine ER OSMOTIC (PROCARDIA XL) 24 hr tablet 90 mg 90 mg, Oral, DAILY, First dose (after last modification) on Shraddha 11/13/23 at 2000, DO NOT CRUSH. 1999 ($Given - Provider: Martina Hamm RN) 1950 ($Given - Provider: Sharlene Troy RN) No heparin via hemodialysis machine (COMPLETED) ONCE, 1 dose, On Fri11/17/23 at 0830, Normal saline flushes may be used to maintain patency of circuit., Dialysis 1437 ($Given - Provider: Caryl No, CATARINA) piperacillin-tazobactam (ZOSYN) 2.25 g vial to attach to NS 100 ml bag (COMPLETED) Routine, 2.25 g, Intravenous, EVERY 6 HOURS, First dose on Fri11/11/23 at 2200, For 19 doses, Increased frequency from q8h to q6h due to HAP/noscomial pneumonia Lactated Ringer's solution is not compatible with piperacillin-tazobactam for injection., Indications: Bacteremia, Hospital-Acquired Pneumonia 0229 ($New Bag - Provider: Martina Hamm RN)0838 ($New Bag - Provider: Adriana Garcia RN)1439 ($New Bag - Provider: Adriana Garcia RN) predniSONE (DELTASONE) tablet 5 mg 5 mg, Oral, DAILY, First dose on Fri11/12/23 at 0800 0835 ($Given - Provider: Adriana Garcia RN) 0751 ($Given - Provider: Adriana Garcia RN) 0808 ($Given - Provider: Demian Cr RN) sodium chloride (PF) 0.9% PF flush 3 mL 3 mL, Intracatheter, EVERY 8 HOURS, First dose on Fri11/11/23 at 2200, to lock peripheral IV dormant line 0611 (Not Given - Provider: Martina Hamm RN - Reason: IV Infusing)1439 ($Given - Provider: Adriana Garcia RN)2131 ($Given - Provider: Martina Hamm RN) 0559 ($Given - Provider: Martina aHmm RN)1516 ($Given - Provider: Adriana Garcia RN)2108 ($Given - Provider: Sharlene Troy, CATARINA)2120 (Not Given - Provider: Sharlene Troy RN - Reason: IV Infusing) 0645 (Not Given - Provider: Sharlene Troy, RN - Reason: Patient/family refused) sodium chloride 0.9% BOLUS 250 mL (COMPLETED) Intravenous, 250 mL, ONCE IN DIALYSIS/CRRT, On Fri11/17/23 at 0830, For 1 dose, For patient prime during dialysis, Dialysis 1436 ($New Bag - Provider: Caryl No, CATARINA) sodium chloride 0.9% BOLUS 300 mL (COMPLETED) Hemodialysis Machine, 300 mL, ONCE, On Fri11/17/23 at 0830, For 1 dose, For Dialyzer Prime. (In Dialyzer), Dialysis 1436 ($New Bag - Provider: Caryl No, CATARINA) torsemide (DEMADEX) tablet 100 mg 100 mg, Oral, 2 TIMES DAILY (Diuretics and Nitrates), First dose on Fri11/11/23 at 2230, Hold for SBP under 110 0835 ($Given - Provider: Adriana Garcia RN)1655 ($Given - Provider: Adriana Garcia RN) 0751 ($Given - Provider: Adriana Garcia RN)1904 ($Given - Provider: Adriana Garcia RN) 0808 ($Given - Provider: Demian Cr RN) traZODone (DESYREL) tablet 100 mg 100 mg, Oral, AT BEDTIME, First dose (after last modification) on Fri11/16/23 at 2200 2122 ($Given - Provider: Martina Hamm RN) 2107 ($Given - Provider: Sharlene Troy, CATARINA) traZODone (DESYREL) tablet 50 mg (CANCELED) 50 mg, Oral, AT BEDTIME, First dose on Fri11/16/23 at 0200 0229 ($Given - Provider: Martina Hamm RN) vancomycin (VANCOCIN) capsule 125 mg Routine, 125 mg, Oral, 2 TIMES DAILY, First dose on 11/15/24 at 0800, Indications: C diff prophylaxis 0835 ($Given - Provider: Adriana Garcia RN)1958 ($Given - Provider: Martina Hamm RN) 0747 ($Given - Provider: Adriana Garcia RN)1949 ($Given - Provider: Sharlene Troy RN) 0808 ($Given - Provider: Demian Cr RN) PRN Medication Order 11/16/2023 11/17/2023 11/18/2023 acetaminophen (TYLENOL) tablet 650 mg 650 mg, Oral, EVERY 4 HOURS PRN, mild pain, fever, Starting on Fri11/11/23 at 9, Maximum acetaminophen dose from all sources = 75 mg/kg/day not to exceed 4 grams/day. albuterol (PROVENTIL HFA/VENTOLIN HFA) inhaler 2 puff, Inhalation, EVERY 6 HOURS PRN, wheezing, Starting on Fri11/11/23 at 2133, Check the dose counter on the inhaler to ensure there are doses remaining before administering. Prime by spraying into the air 4 times prior to first use and if not used within 2 weeks. benzocaine-menthol (CHLORASEPTIC) 6-10 MG lozenge 1 lozenge 1 lozenge, Buccal, EVERY 1 HOUR PRN, sore throat, Starting on Fri11/13/23 at 0459 1656 (Return to Cabinet - Provider: Adriana Garcia RN - Comment: Returned to [facility].) bisacodyl (DULCOLAX) suppository 10 mg 10 mg, Rectal, DAILY PRN, constipation, Starting on Fri11/11/23 at 2128, IF more than 1 constipation PRN medication is ordered, administer step-sierra as indicated, moving to the next step ONLY if prior step ineffective. Step 1: senna-docusate (SENOKOT-S; PERICOLACE) OR bisacodyl (DULCOLAX) EC tablet Step 2: polyethylene glycol (MIRALAX/GLYCOLAX) Step 3: bisacodyl (DULCOLAX) suppository Step 4: enema Hold for loose stools. calcium carbonate (TUMS) chewable tablet 1,000 mg 1,000 mg, Oral, 4 TIMES DAILY PRN, heartburn, Starting on e 11/11/23 at 2128 hydrALAZINE (APRESOLINE) injection 10 mg 10 mg, Intravenous, EVERY 6 HOURS PRN, high blood pressure, SBP >180, Administer over 1 Minutes, Starting on Shraddha 11/13/23 at 1551 HYDROmorphone (DILAUDID) tablet 2 mg(Linked Group 1) 2 mg, Oral, EVERY 3 HOURS PRN, moderate pain, Starting on e 11/11/23 at 2351, Separate opioids 1 hour apart from any other sedative. Hold for RASS-2. Hold for confusion/somnolence. HYDROmorphone (DILAUDID) tablet 4 mg(Linked Group 1) 4 mg, Oral, EVERY 3 HOURS PRN, severe pain, Starting on 11/11/23 at 2351, Separate opioids 1 hour apart from any other sedative. Hold for RASS-2. Hold for confusion/somnolence. HYDROmorphone (PF) (DILAUDID) injection 0.4 mg 0.4 mg, Intravenous, EVERY 3 HOURS PRN, severe pain, For pain that is not controlled with oral medications., Starting on Fri11/11/23 at 2122, Try oral first. ipratropium - albuterol 0.5 mg/2.5 mg/3 mL (DUONEB) neb solution 3 mL 3 mL, Nebulization, EVERY 4 HOURS PRN, wheezing, shortness of breath, Starting on Fri11/11/23 at 2142 lidocaine (LMX4) cream Topical, EVERY 1 HOUR PRN, pain, with VAD insertion, Starting on Fri11/11/23 at 2128, Apply at least 30 minutes prior to VAD insertion in divided doses as needed for size of site for insertion. MAX Dose: 2.5 g (?? of 5 g tube) Do NOT give if patient has a history of allergy to any local anesthetic or any jean product. Do NOT use both lidocaine intradermal/subcutaneous injection and the lidocaine cream on the same site. lidocaine 1 % 0.1-1 mL 0.1-1 mL, Other, EVERY 1 HOUR PRN, mild pain with VAD insertion, Starting on Fri11/11/23 at 2128, MAX dose 1 mL subcutaneous OR intradermal along the side of the vein in divided doses as needed for VAD insertion. Do NOT give if patient has a history of allergy to any local anesthetic or any jean product. Do NOT use both lidocaine intradermal/subcutaneous injection and the lidocaine cream on the same site. magnesium hydroxide (MILK OF MAGNESIA) suspension 30 mL 30 mL, Oral, DAILY PRN, constipation, Starting on Fri11/11/23 at 2129, Shake well. Hold for loose stools. melatonin tablet 3 mg 3 mg, Oral, AT BEDTIME PRN, sleep, Starting on Fri11/16/23 at 1055 naloxone (NARCAN) injection 0.2 mg(Linked Group 2) 0.2 mg, Intravenous, EVERY 2 MIN PRN, opioid reversal, Starting on Fri11/11/23 at 2133, Administer intravenous route when available and notify provider when administered. For unintended sedation or respiratory depression if all of the below criteria are met: ~ respiratory rate LESS than or EQUAL to 8. ~SaO2 less than 92% and or/end-tidal CO2 is greater than 50. ~ the patient is receiving an opioid, has unintended sedations assessed as RASS (-3), and is currently not on mechanical ventilation. RASS scale moderate (-3) is movement or eye opening to voice but no eye contact. Patient Monitoring Once the patient has demonstrated a response to the naloxone, continue to monitor respiratory rate, depth, oxygen saturation and end-tidal CO2 (if available) every 15 minutes x 2, then every 30 minutes x 2, then every 1 hour x 1 after each naloxone dose. Consider transfer to ICU if patient respiratory parameters have not improved after 4 naloxone doses. naloxone (NARCAN) injection 0.2 mg(Linked Group 2) 0.2 mg, Intramuscular, EVERY 2 MIN PRN, opioid reversal, Starting on Fri11/11/23 at 2134, Administer intramuscular if an intravenous route is not available and notify provider when administered. For unintended sedation or respiratory depression if all of the below criteria are met: ~ respiratory rate LESS than or EQUAL to 8. ~SaO2 less than 92% and or/end-tidal CO2 is greater than 50. ~ the patient is receiving an opioid, has unintended sedations assessed as RASS (-3), and is currently not on mechanical ventilation. RASS scale moderate (-3) is movement or eye opening to voice but no eye contact. Patient Monitoring Once the patient has demonstrated a response to the naloxone, continue to monitor respiratory rate, depth, oxygen saturation and end-tidal CO2 (if available) every 15 minutes x 2, then every 30 minutes x 2, then every 1 hour x 1 after each naloxone dose. Consider transfer to ICU if patient respiratory parameters have not improved after 4 naloxone doses. naloxone (NARCAN) injection 0.4 mg(Linked Group 2) 0.4 mg, Intravenous, EVERY 2 MIN PRN, opioid reversal, Starting on Fri11/11/23 at 2133, Administer intravenous route when available and notify provider when administered. For unintended sedation or respiratory depression if all of the below criteria are met: ~ respiratory rate LESS than or EQUAL to 8. ~ SaO2 less than 92% and or/end-tidal CO2 is greater than 50. ~ the patient is receiving an opioid, has unintended sedation assessed as RASS (-4) or (-5) and patient is currently not on mechanical ventilation. RASS scale (-4) is deep sedation with no response to voice but movement or eye opening to physical stimulation. RASS scale (-5) is unarousable. Patient Monitoring Once the patient has demonstrated a response to the naloxone, continue to monitor respiratory rate, depth, oxygen saturation and end-tidal CO2 (if available) every 15 minutes x 2, then every 30 minutes x 2, then every 1 hour x 1 after each naloxone dose. Consider transfer to ICU if patient respiratory parameters have not improved after 4 naloxone doses. naloxone (NARCAN) injection 0.4 mg(Linked Group 2) 0.4 mg, Intramuscular, EVERY 2 MIN PRN, opioid reversal, Starting on Fri11/11/23 at 4, Administer intramuscular if an intravenous route is not available and notify provider when administered. For unintended sedation or respiratory depression if all of the below criteria are met: ~ respiratory rate LESS than or EQUAL to 8. ~ SaO2 less than 92% and or/end-tidal CO2 is greater than 50. ~ the patient is receiving an opioid, has unintended sedation assessed as RASS (-4) or (-5) and patient is currently not on mechanical ventilation. RASS scale (-4) is deep sedation with no response to voice but movement or eye opening to physical stimulation. RASS scale (-5) is unarousable. Patient Monitoring Once the patient has demonstrated a response to the naloxone, continue to monitor respiratory rate, depth, oxygen saturation and end-tidal CO2 (if available) every 15 minutes x 2, then every 30 minutes x 2, then every 1 hour x 1 after each naloxone dose. Consider transfer to ICU if patient respiratory parameters have not improved after 4 naloxone doses. ondansetron (ZOFRAN ODT) ODT tab 4 mg(Linked Group 3) 4 mg, Oral, EVERY 6 HOURS PRN, nausea, vomiting, Starting on Fri11/11/23 at 2128, This is Step 1 of nausea and vomiting management. If nausea not resolved in 15 minutes, go to Step 2 prochlorperazine (COMPAZINE). With dry hands, peel back foil backing and gently remove tablet. Do not push oral disintegrating tablet through foil backing. Administer immediately on tongue and oral disintegrating tablet dissolves in seconds, then swallow with saliva. Liquid not required. ondansetron (ZOFRAN) injection 4 mg(Linked Group 3) 4 mg, Intravenous, EVERY 6 HOURS PRN, nausea, vomiting, Administer over 2-5 Minutes, Starting on Fri11/11/23 at 2128, Give IF patient unable to tolerate oral medication. This is Step 1 of nausea and vomiting management. If nausea not resolved in 15 minutes, go to Step 2 prochlorperazine (COMPAZINE). Irritant. polyethylene glycol (MIRALAX) Packet 17 g 17 g, Oral, 2 TIMES DAILY PRN, constipation, Starting on Fri11/11/23 at 2128, IF more than 1 constipation PRN medication is ordered, administer step-sierra as indicated, moving to the next step ONLY if prior step ineffective. Step 1: senna-docusate (SENOKOT-S; PERICOLACE) OR bisacodyl (DULCOLAX) EC tablet Step 2: polyethylene glycol (MIRALAX/GLYCOLAX) Step 3: bisacodyl (DULCOLAX) suppository Step 4: enema 1 Packet = 17 grams. Mix each gram with at least 1/2 ounce (15 mL) of water - 8 ounces for 17 g dose, 4 ounces for 8.5 g dose, 2 ounces for 4 g dose. Follow with the same volume of water. Hold for loose stools unless being administered as part of a bowel prep regimen or bowel clean out. prochlorperazine (COMPAZINE) injection 5 mg(Linked Group 4) 5 mg, Intravenous, EVERY 6 HOURS PRN, nausea, vomiting, Administer over 1-2 Minutes, Starting on Fri11/11/23 at 2128, IF patient unable to tolerate oral medication. This is Step 2 of nausea and vomiting management. Give if nausea not resolved 15 minutes after giving ondansetron (ZOFRAN). prochlorperazine (COMPAZINE) suppository 12.5 mg(Linked Group 4) 12.5 mg, Rectal, EVERY 12 HOURS PRN, nausea, vomiting, Starting on Fri11/11/23 at 2128, This is Step 2 of nausea and vomiting management. Give if nausea not resolved 15 minutes after giving ondansetron (ZOFRAN). prochlorperazine (COMPAZINE) tablet 5 mg(Linked Group 4) 5 mg, Oral, EVERY 6 HOURS PRN, vomiting, Starting on Fri11/11/23 at 2128, This is Step 2 of nausea and vomiting management. Give if nausea not resolved 15 minutes after giving ondansetron (ZOFRAN). senna-docusate (SENOKOT-S/PERICOLACE) 8.6-50 MG per tablet 1 tablet(Linked Group 5) 1 tablet, Oral, 2 TIMES DAILY PRN, constipation, Starting on Fri11/11/23 at 2127, If no bowel movement in 24 hours, increase to 2 tablets by mouth. IF more than 1 constipation PRN medication is ordered, administer step-sierra as indicated, moving to the next step ONLY if prior step ineffective. Step 1: senna-docusate (SENOKOT-S; PERICOLACE) OR bisacodyl (DULCOLAX) EC tablet Step 2: polyethylene glycol (MIRALAX/GLYCOLAX) Step 3: bisacodyl (DULCOLAX) suppository Step 4: enema Hold for loose stools. senna-docusate (SENOKOT-S/PERICOLACE) 8.6-50 MG per tablet 2 tablet(Linked Group 5) 2 tablet, Oral, 2 TIMES DAILY PRN, constipation, Starting on Fri11/11/23 at 2127, IF more than 1 constipation PRN medication is ordered, administer step-sierra as indicated, moving to the next step ONLY if prior step ineffective. Step 1: senna-docusate (SENOKOT-S; PERICOLACE) OR bisacodyl (DULCOLAX) EC tablet Step 2: polyethylene glycol (MIRALAX/GLYCOLAX) Step 3: bisacodyl (DULCOLAX) suppository Step 4: enema Hold for loose stools. sodium chloride (PF) 0.9% PF flush 3 mL 3 mL, Intracatheter, EVERY 1 MIN PRN, line flush, other, to ensure patency or to lock dormant line, Starting on Fri11/11/23 at 8 Linked Groups Order Group 1: HYDROmorphone (DILAUDID) tablet 2 mgJump to med 2 mg, Oral, EVERY 3 HOURS PRN, moderate pain, Starting on Fri11/11/23 at 2351, Separate opioids 1 hour apart from any other sedative. Hold for RASS-2. Hold for confusion/somnolence. Or HYDROmorphone (DILAUDID) tablet 4 mgJump to med 4 mg, Oral, EVERY 3 HOURS PRN, severe pain, Starting on Fri11/11/23 at 2351, Separate opioids 1 hour apart from any other sedative. Hold for RASS-2. Hold for confusion/somnolence. Group 2: naloxone (NARCAN) injection 0.2 mgJump to med 0.2 mg, Intravenous, EVERY 2 MIN PRN, opioid reversal, Starting on Fri11/11/23 at 2134, Administer intravenous route when available and notify provider when administered. For unintended sedation or respiratory depression if all of the below criteria are met: ~ respiratory rate LESS than or EQUAL to 8. ~SaO2 less than 92% and or/end-tidal CO2 is greater than 50. ~ the patient is receiving an opioid, has unintended sedations assessed as RASS (-3), and is currently not on mechanical ventilation. RASS scale moderate (-3) is movement or eye opening to voice but no eye contact. Patient Monitoring Once the patient has demonstrated a response to the naloxone, continue to monitor respiratory rate, depth, oxygen saturation and end-tidal CO2 (if available) every 15 minutes x 2, then every 30 minutes x 2, then every 1 hour x 1 after each naloxone dose. Consider transfer to ICU if patient respiratory parameters have not improved after 4 naloxone doses. Or naloxone (NARCAN) injection 0.4 mgJump to med 0.4 mg, Intravenous, EVERY 2 MIN PRN, opioid reversal, Starting on Fri11/11/23 at 2133, Administer intravenous route when available and notify provider when administered. For unintended sedation or respiratory depression if all of the below criteria are met: ~ respiratory rate LESS than or EQUAL to 8. ~ SaO2 less than 92% and or/end-tidal CO2 is greater than 50. ~ the patient is receiving an opioid, has unintended sedation assessed as RASS (-4) or (-5) and patient is currently not on mechanical ventilation. RASS scale (-4) is deep sedation with no response to voice but movement or eye opening to physical stimulation. RASS scale (-5) is unarousable. Patient Monitoring Once the patient has demonstrated a response to the naloxone, continue to monitor respiratory rate, depth, oxygen saturation and end-tidal CO2 (if available) every 15 minutes x 2, then every 30 minutes x 2, then every 1 hour x 1 after each naloxone dose. Consider transfer to ICU if patient respiratory parameters have not improved after 4 naloxone doses. Or naloxone (NARCAN) injection 0.2 mgJump to med 0.2 mg, Intramuscular, EVERY 2 MIN PRN, opioid reversal, Starting on Fri11/11/23 at 2133, Administer intramuscular if an intravenous route is not available and notify provider when administered. For unintended sedation or respiratory depression if all of the below criteria are met: ~ respiratory rate LESS than or EQUAL to 8. ~SaO2 less than 92% and or/end-tidal CO2 is greater than 50. ~ the patient is receiving an opioid, has unintended sedations assessed as RASS (-3), and is currently not on mechanical ventilation. RASS scale moderate (-3) is movement or eye opening to voice but no eye contact. Patient Monitoring Once the patient has demonstrated a response to the naloxone, continue to monitor respiratory rate, depth, oxygen saturation and end-tidal CO2 (if available) every 15 minutes x 2, then every 30 minutes x 2, then every 1 hour x 1 after each naloxone dose. Consider transfer to ICU if patient respiratory parameters have not improved after 4 naloxone doses. Or naloxone (NARCAN) injection 0.4 mgJump to med 0.4 mg, Intramuscular, EVERY 2 MIN PRN, opioid reversal, Starting on Fri11/11/23 at 2133, Administer intramuscular if an intravenous route is not available and notify provider when administered. For unintended sedation or respiratory depression if all of the below criteria are met: ~ respiratory rate LESS than or EQUAL to 8. ~ SaO2 less than 92% and or/end-tidal CO2 is greater than 50. ~ the patient is receiving an opioid, has unintended sedation assessed as RASS (-4) or (-5) and patient is currently not on mechanical ventilation. RASS scale (-4) is deep sedation with no response to voice but movement or eye opening to physical stimulation. RASS scale (-5) is unarousable. Patient Monitoring Once the patient has demonstrated a response to the naloxone, continue to monitor respiratory rate, depth, oxygen saturation and end-tidal CO2 (if available) every 15 minutes x 2, then every 30 minutes x 2, then every 1 hour x 1 after each naloxone dose. Consider transfer to ICU if patient respiratory parameters have not improved after 4 naloxone doses. Group 3: ondansetron (ZOFRAN ODT) ODT tab 4 mgJump to med 4 mg, Oral, EVERY 6 HOURS PRN, nausea, vomiting, Starting on Fri11/11/23 at 2128, This is Step 1 of nausea and vomiting management. If nausea not resolved in 15 minutes, go to Step 2 prochlorperazine (COMPAZINE). With dry hands, peel back foil backing and gently remove tablet. Do not push oral disintegrating tablet through foil backing. Administer immediately on tongue and oral disintegrating tablet dissolves in seconds, then swallow with saliva. Liquid not required. Or ondansetron (ZOFRAN) injection 4 mgJump to med 4 mg, Intravenous, EVERY 6 HOURS PRN, nausea, vomiting, Administer over 2-5 Minutes, Starting on Fri11/11/23 at 2128, Give IF patient unable to tolerate oral medication. This is Step 1 of nausea and vomiting management. If nausea not resolved in 15 minutes, go to Step 2 prochlorperazine (COMPAZINE). Irritant. Group 4: prochlorperazine (COMPAZINE) injection 5 mgJump to med 5 mg, Intravenous, EVERY 6 HOURS PRN, nausea, vomiting, Administer over 1-2 Minutes, Starting on Fri11/11/23 at 2128, IF patient unable to tolerate oral medication. This is Step 2 of nausea and vomiting management. Give if nausea not resolved 15 minutes after giving ondansetron (ZOFRAN). Or prochlorperazine (COMPAZINE) tablet 5 mgJump to med 5 mg, Oral, EVERY 6 HOURS PRN, vomiting, Starting on Fri11/11/23 at 2128, This is Step 2 of nausea and vomiting management. Give if nausea not resolved 15 minutes after giving ondansetron (ZOFRAN). Or prochlorperazine (COMPAZINE) suppository 12.5 mgJump to med 12.5 mg, Rectal, EVERY 12 HOURS PRN, nausea, vomiting, Starting on Fri11/11/23 at 2128, This is Step 2 of nausea and vomiting management. Give if nausea not resolved 15 minutes after giving ondansetron (ZOFRAN). Group 5: senna-docusate (SENOKOT-S/PERICOLACE) 8.6-50 MG per tablet 1 tabletJump to med 1 tablet, Oral, 2 TIMES DAILY PRN, constipation, Starting on Fri11/11/23 at 2127, If no bowel movement in 24 hours, increase to 2 tablets by mouth. IF more than 1 constipation PRN medication is ordered, administer step-sierra as indicated, moving to the next step ONLY if prior step ineffective. Step 1: senna-docusate (SENOKOT-S; PERICOLACE) OR bisacodyl (DULCOLAX) EC tablet Step 2: polyethylene glycol (MIRALAX/GLYCOLAX) Step 3: bisacodyl (DULCOLAX) suppository Step 4: enema Hold for loose stools. Or senna-docusate (SENOKOT-S/PERICOLACE) 8.6-50 MG per tablet 2 tabletJump to med 2 tablet, Oral, 2 TIMES DAILY PRN, constipation, Starting on Fri11/11/23 at 2127, IF more than 1 constipation PRN medication is ordered, administer step-sierra as indicated, moving to the next step ONLY if prior step ineffective. Step 1: senna-docusate (SENOKOT-S; PERICOLACE) OR bisacodyl (DULCOLAX) EC tablet Step 2: polyethylene glycol (MIRALAX/GLYCOLAX) Step 3: bisacodyl (DULCOLAX) suppository Step 4: enema Hold for loose stools. documented in this encounter Additional Health Concerns Infection Onset Date Last Indicated Resolved Time Rule Out C-difficile 11/15/2023 11/15/2023 024 6:15 PM CDT documented as of this encounter Care Teams [employer]airer Relationship Specialty Start Date End Date Ryan Cole MD [address] [place] [address] PCP - General 06/02/23 Sánchez Kowalski APRN [employer] [address] [place] [address] [id number] Nurse Practitioner Nephrology 04/11/23 Marlen Esposito MD [address] [place] [address] [id number] Surgery 04/11/[address] [address] [address] Registered Dietitian Dietitian, Registered 04/11/23 Karen Steel LICSW Insurance Office Manager 04/11/23 Marlen Esposito MD [address] [place] [address] [id number] Surgery 05/21/23 Karen Steel LICSW Insurance Office Manager 05/21/23 Sánchez Kowalski APRN DRAFTER STRUCTURAL [address] [place] [address] [phone] Nurse Practitioner Nephrology 05/21/[address] [address] Registered Dietitian Dietitian, Registered 05/21/23 Barbara Valdes MD 516 [facility] 2A [place], [place] [address] Assigned Surgical Provider 10/14/23 documented as of this encounter
--- OUTSIDE RECORDS SUMMARY | 2024-02-26 16:00 | XMS_ITS | Encounter Summary ---
Author Organization [place] Address [address] [place] [address]. [place] [address] Care Team Providers Care Roster Clerk Name Role Phone Sánchez Kowalski APRN SOLAR ENERGY SALES SPECIALIST Unavailable Marlen Esposito MD Unavailable [phone] Unavailable Unavail able Karen Steel Unavailable Marlen Esposito MD Unavailable [phone] Karen Steel Unavailable [phone] Sánchez Kowalski APRN SOLAR ENERGY SALES SPECIALIST Unavailable Patricia Willoughby RD Unavailable Unavail able Ryan Cole MD Primary Care Provider Marlen Esposito MD Unavailable [phone] Barbara Valdes MD Unavailable [phone] Encounter Details Date Type Department Care Team (Late st Contact Info) Description 07/21/2023 [facility] [address] [place] [address] Linnea Graff, RN Social History [...] documented as of this encounter Care Teams Roster Clerk Relationship Specialty Start Date End Date Ryan Cole MD [address] [place] [address] PCP - General 06/02/23 Sánchez Kowalski APRN SOLAR ENERGY SALES SPECIALIST [address] [place] [address] 797235 Nurse Practitioner Nephrology 04/11/23 Marlen Esposito MD [address] [place] [address] [phone] Surgery 04/11/[address] [place] [address] Registered Dietitian Dietitian, Registered 04/11/23 Karen Steel LICSW Beef Skinner 04/11/23 Marlen Esposito MD [address] [place] [address] [phone] Surgery 05/21/23 Karen Steel LICSW Beef Skinner 05/21/23 Sánchez Kowalski APRN SOLAR ENERGY SALES SPECIALIST [address] [place] [address] Nurse Practitioner Nephrology 05/21/[address] [facility] 420 [facility] 84 [place] [address] Registered Dietitian Dietitian, Registered 05/21/23 Marlen Esposito MD [address] [place] [address] Assigned Surgical Provider 06/21/23 10/13/23 Barbara Valdes MD 6 [facility] 2A [place] [address] Assigned Surgical Provider 10/14/23 documented as of this encounter
--- OUTSIDE RECORDS SUMMARY | 2024-02-26 16:00 | XMS_ITS | Encounter Summary ---
Author Organization [facility] Address [address] [place] [address]. [place] [address] Care Team Providers Care Dry Man Name Role Phone Sánchez Kowalski APRN CONDENSER TUBE TENDER Unavailable Marlen Esposito MD Unavailable Patricia Willoughby RD Unavailable Unavail able Karen Steel Unavailable [phone] Marlen Esposito MD Unavailable Karen Steel Unavailable [phone] Sánchez Kowalski APRN CONDENSER TUBE TENDER Unavailable Patricia Willoughby RD Unavailable Unavail able Ryan Cole MD Primary Care Provider Marlen Esposito MD Unavailable [phone] Barbara Valdes MD Unavailable [phone] Encounter Details Date Type Department Care Team (Late st Contact Info) Description 09/01/2023 [facility] [place] [facility] [address] [place] [address] Linnea Graff, RN Social History [...] as of this encounter Care Teams Dry Man Relationship Specialty Start Date End Date Ryan Cole MD [address] [place] [address] PCP - General 06/02/23 Sánchez Kowalski APRN CONDENSER TUBE TENDER [address] [place] [address] 106135 Nurse Practitioner Nephrology 04/11/23 Marlen Esposito MD [address] [place] [address] [phone] Surgery 04/11/[address] [place] [address] Registered Dietitian Dietitian, Registered 04/11/23 Karen Steel LICSW Endocrinology Physician 04/11/23 Marlen Esposito MD [address] [place] [address] [phone] Surgery 05/21/23 Karen Steel LICSW Endocrinology Physician 05/21/23 Sánchez Kowalski APRN CONDENSER TUBE TENDER [address] [place] [address] Nurse Practitioner Nephrology 05/21/[address] [facility] 420 [facility] 84 [place] [address] Registered Dietitian Dietitian, Registered 05/21/23 Marlen Esposito MD [address] [place] [address] Assigned Surgical Provider 06/21/23 10/13/23 Barbara Valdes MD 6 [facility] 2A [place] [address] Assigned Surgical Provider 10/14/23 documented as of this encounter
--- OUTSIDE RECORDS SUMMARY | 2024-02-26 16:00 | XMS_ITS | Encounter Summary ---
Author Organization [facility] Address [address] [place] [address]. [place] [address] Care Team Providers Care Psychiatric Assistant Name Role Phone Sánchez Kowalski APRN BLENDER CONVEYOR OPERATOR Unavailable Marlen Esposito MD Unavailable Patricia Willoughby RD Unavailable Unavail able Karen Steel Unavailable Marlen Esposito MD Unavailable [phone] Karen Steel Unavailable [phone] Sánchez Kowalski APRN BLENDER CONVEYOR OPERATOR Unavailable Patricia Willoughby RD Unavailable Unavail able Ryan Cole MD Primary Care Provider Marlen Esposito MD Unavailable [phone] Barbara Valdes MD Unavailable [phone] Encounter Details Date Type Department Care Team (Late st Contact Info) Description 09/10/2023 [facility] [address] [place] [address] Linnea Graff, RN Social History [...] documented as of this encounter Care Teams Psychiatric Assistant Relationship Specialty Start Date End Date Ryan Coel MD [address] [place] [address] PCP - General 06/02/23 Sánchez Kowalski APRN BLENDER CONVEYOR OPERATOR [address] [place] [address] [phone] Nurse Practitioner Nephrology 04/11/23 Marlen Esposito MD [address] [place] [address] [phone] Surgery 04/11/[address] [place] [address] Registered Dietitian Dietitian, Registered 04/11/23 Karen Steel LICSW Automatic Spooler Operator 04/11/23 Marlen Esposito MD [address] [place] [address] [phone] Surgery 05/21/23 Karen Steel LICSW Automatic Spooler Operator 05/21/23 Sánchez Kowalski APRN BLENDER CONVEYOR OPERATOR 9[address] [place] [address] Nurse Practitioner Nephrology 05/21/[address] [facility] 420 [facility] 84 [place] [address] Registered Dietitian Dietitian, Registered 05/21/23 Marlen Esposito MD [address] [place] [address] Assigned Surgical Provider 06/21/23 10/13/23 Barbara Valdes MD 6 [facility] 2A [place] [address] Assigned Surgical Provider 10/14/23 documented as of this encounter
--- OUTSIDE RECORDS SUMMARY | 2024-02-26 16:00 | XMS_ITS | Encounter Summary ---
Author Organization [place] Address [address] [place] [address]. [place] [address] Care Team Providers Care Home Security Professional Name Role Phone Sánchez Kowalski APRN GAS LINE SERVICER Unavailable Marlen Esposito MD Unavailable Patricia Willoughby RD Unavailable Unavail able Karen Steel Unavailable Marlen Esposito MD Unavailable [phone] Karen Steel Unavailable [phone] Sánchez Kowalski APRN GAS LINE SERVICER Unavailable Patricia Willoughby RD Unavailable Unavail able Ryan Cole MD Primary Care Provider [phone] Marlen Esposito MD Unavailable [phone] Barbara Valdes MD Unavailable [phone] Encounter Details Date Type Department Care Team (Late st Contact Info) Description 07/27/2023 [facility] [address] [place] [address] Linnea Graff, RN Social History [...] as of this encounter Care Teams Home Security Professional Relationship Specialty Start Date End Date Ryan Cole MD [address] [place] [address] PCP - General 06/02/23 Sánchez Kowalski APRN GAS LINE SERVICER [address] [place] [address] 964175 Nurse Practitioner Nephrology 04/11/23 Marlen Esposito MD [address] [place] [address] [phone] Surgery 04/11/[address] [place] [address] Registered Dietitian Dietitian, Registered 04/11/23 Karen Steel LICSW Plastics Heat Welder 04/11/23 Marlen Esposito MD [address] [place] [address] [phone] Surgery 05/21/23 Karen Steel LICSW Plastics Heat Welder 05/21/23 Sánchez Kowalski APRN GAS LINE SERVICER 9[address] [place] [address] Nurse Practitioner Nephrology 05/21/[address] [facility] 420 [facility] 84 [place] [address] Registered Dietitian Dietitian, Registered 05/21/23 Marlen Esposito MD [address] [place] [address] Assigned Surgical Provider 06/21/23 10/13/23 Barbara Valdes MD 6 [facility] 2A [place] [address] Assigned Surgical Provider 10/14/23 documented as of this encounter
--- OUTSIDE RECORDS SUMMARY | 2024-02-26 16:00 | XMS_ITS | Encounter Summary ---
Author Organization [place] Address [address] [place] [address]. [place] [address] Care Team Providers Care Chemical Strength Tester Name Role Phone Sánchez Kowalski APRN MOTOR SETTER Unavailable [phone] Marlen Esposito MD Unavailable [phone] Unavailable Unavail able Karen Steel Unavailable [phone] Marlen Esposito MD Unavailable Karen Steel Unavailable [phone] Sánchez Kowalski APRN MOTOR SETTER Unavailable Patricia Willoughby RD Unavailable Unavail able Ryan Cole MD Primary Care Provider [phone] Marlen Esposito MD Unavailable [phone] Barbara Valdes MD Unavailable [phone] Encounter Details Date Type Department Care Team (Late st Contact Info) Description 08/13/2023 [facility] [place] [facility] [address] [place] [address] Linnea Graff, RN Social History [...] as of this encounter Care Teams Chemical Strength Tester Relationship Specialty Start Date End Date Ryan Cole MD [address] [place] [address] PCP - General 06/02/23 Sánchez Kowalski APRN MOTOR SETTER [address] [place] [address] 557205 Nurse Practitioner Nephrology 04/11/23 Marlen Esposito MD [address] [place] [address] [phone] Surgery 04/11/[address] [place] [address] Registered Dietitian Dietitian, Registered 04/11/23 Karen Steel LICSW Home Assessment Nurse 04/11/23 Marlen Esposito MD [address] [place] [address] [phone] Surgery 05/21/23 Karen Steel LICSW Home Assessment Nurse 05/21/23 Sánchez Kowalski APRN MOTOR SETTER 9[address] [place] [address] Nurse Practitioner Nephrology 05/21/[address] [facility] 420 [facility] 84 [place] [address] Registered Dietitian Dietitian, Registered 05/21/23 Marlen Esposito MD [address] [place] [address] Assigned Surgical Provider 06/21/23 10/13/23 Barbara Valdes MD 6 [facility] 2A [place] [address] Assigned Surgical Provider 10/14/23 documented as of this encounter
--- OUTSIDE RECORDS SUMMARY | 2024-02-26 16:01 | XMS_ITS | Encounter Summary ---
Author Organization [place] Address [address] [place] [address]. [place] [address] Care Team Providers Care Kickboxing Instructor Name Role Phone Sánchez Kowalski APRN A P MECHANIC Unavailable Marlen Esposito MD Unavailable [phone] Unavailable Unavail able Karen Steel Unavailable Marlen Esposito MD Unavailable [phone] Karen Steel Unavailable [phone] Sánchez Kowalski APRN A P MECHANIC Unavailable Patricia Willoughby RD Unavailable Unavail able Ryan Cole MD Primary Care Provider [phone] Marlen Esposito MD Unavailable [phone] Barbara Valdes MD Unavailable [phone] Encounter Details Date Type Department Care Team (Late st Contact Info) Description 06/05/2023 Orders Only [facility] [address] [place] [address] Outside, Provider Social History Tobacco Use Types [...] Comments HLA RESULT REPORT 06/05/2023 2:18 PM [employer] BI ARCHITECT HLA RESULT REPORT 06/05/2023 2:18 PM [employer] BI ARCHITECT documented in this encounter Results * HLA RESULT REPORT (06/05/2023 2:18 PM [employer] BI ARCHITECT) Provider Outside LAB - IMMUNOLOGY ORD ERABLES * HLA RESULT REPORT (06/05/2023 2:18 PM [employer]CR[employer] BI ARCHITECT) Provider Outside LAB - IMMUNOLOGY ORD ERABLES documented in this encounter Visit Diagnoses Not on filedocumented in this encounter Additional Health Concerns Infection Onset Date Last Indicated Resolved Time Rule Out C-difficile 11/15/2023 11/15/2023 024 6:15 PM CDT documented as of this encounter Care Teams Kickboxing Instructor Relationship Specialty Start Date End Date Ryan Cole MD [address] [place] [address] PCP - General 06/02/23 Sánchez Kowalski APRN A P MECHANIC [address] [place] [address] 895575 Nurse Practitioner Nephrology 04/11/23 Marlen Esposito MD [address] [place] [address] [phone] Surgery 04/11/[address] [place] [address] Registered Dietitian Dietitian, Registered 04/11/23 Kaern Steel LICSW Mortgage Loan Closer 04/11/23 Marlen Esposito MD [address] [place] [address] 59039 Surgery 05/21/23 Karen Steel LICSW Mortgage Loan Closer 05/21/23 Sánchez Kowalski APRN [facility] [address] [place] [address] Nurse Practitioner Nephrology 05/21/[address] [facility] 420 [facility] 84 [place] [address] Registered Dietitian Dietitian, Registered 05/21/23 Marlen Esposito MD [address] [place] [address]61 Assigned Surgical Provider 06/21/23 10/13/23 Barbara Valdes MD 6 [facility] 2A [place] [address] Assigned Surgical Provider 10/14/23 documented as of this encounter
--- OUTSIDE RECORDS SUMMARY | 2024-02-26 16:01 | XMS_ITS | Encounter Summary ---
Author Organization [place] Address [address] [place] [address] Care Team Providers Care Design Engineering Intern Name Role Phone Sánchez Kowalski APRN PROFESSOR OF FRENCH Unavailable [phone] Marlen Esposito MD Unavailable Patricia Willoughby RD Unavailable Unavail able Karen Steel Unavailable Marlen Esposito MD Unavailable Karen Steel Unavailable Sánchez Kowalski APRN PROFESSOR OF FRENCH Unavailable Patricia Willoughby RD Unavailable Unavail able Ryan Cole MD Primary Care Provider Marlen Esposito MD Unavailable [phone] Barbara Valdes MD Unavailable [phone] Encounter Details Date Type Department Care Team (Late st Contact Info) Description 06/05/2023 [facility] [place] [facility] [address] [place] [address] Marlen Esposito MD [address] [place] [address] Social History Tobacco Use Types Packs/Day [...] as of this encounter Care Teams Design Engineering Intern Relationship Specialty Start Date End Date Ryan Cole MD [address] [place] [address] PCP - General 06/02/23 Sánchez Kowalski APRN PROFESSOR OF FRENCH [address] [place] [address] 606135 Nurse Practitioner Nephrology 04/11/23 Marlen Esposito MD [address] [place] [address] [phone] Surgery 04/11/[address] [place] [address] Registered Dietitian Dietitian, Registered 04/11/23 Karen Steel LICSW Support Staff 04/11/23 Marlen Esposito MD [address] [place] [address] 100305 Surgery 05/21/23 Karen Steel LICSW Support Staff 05/21/23 Sánchez Kowalski APRN PROFESSOR OF FRENCH [address] [place] [address] Nurse Practitioner Nephrology 05/21/[address] [facility] 420 [facility] 84 [place] [address] Registered Dietitian Dietitian, Registered 05/21/23 Marlen Esposito MD [address] [place] [address] [phone] Assigned Surgical Provider 06/21/23 10/13/23 Barbara Valdes MD 6 [facility] 2A [place], [place] 183165 Assigned Surgical Provider 10/14/23 documented as of this encounter
--- OUTSIDE RECORDS SUMMARY | 2024-02-26 16:01 | XMS_ITS | Clinical Summary ---
Author Organization [facility] Address [place], [place] [address] Care Team Providers Care Mohel Name Role Phone Ryan Cole MD Primary Care Provider [phone] Allergies Active Allergy Reactions Criticality Noted Date [...] Dispensed Refills Start Date End Date Status aspirin enteric coated 81 mg tablet Take 1 tablet by mouth once daily with a meal. 0 07/14/2013 Active predniSONE (DELTASONE) 5 mg tablet Take 1 tablet by mouth once daily. 3 12/12/2016 Active lamoTRIgine (LAMICTAL) 200 mg tablet Take 1 tablet. by mouth two times daily. 1 01/14/2017 Active coenzyme q10 100 mg cap Daily Active ipratropium (ATROVENT NASAL) 21 mcg (0.03 %) nasal spray 06/03/2021 Active albuterol HFA (PRO-AIR; VENTOLIN; PROVENTIL) 90 mcg/actuation inhaler Inhale 2 Puffs by mouth every 6 hours if needed. 06/21/2021 Active Renate-Celestine Rx tablet TAKE 1 TABLET BY MOUTH DAILY WITH DINNER 09/08/2021 Active traZODone (DESYREL) 100 mg tablet Take 100 mg by mouth once daily if needed. 08/27/2021 Active azelastine 137 mcg/actuation (ASTELIN) nasal spray Inhale 1 mg into affected nostril(s). Active amoxicillin (AMOXIL) 500 mg capsuleIndications:Hi story of joint replacement, unspecified joint TAKE 4 CAPSULES BY MOUTH BEFORE DENTAL APPOINTMENT 4 Capsule 1 07/02/2023 Active azaTHIOprine (IMURAN) 50 mg tablet Take 50 mg by mouth. 04/11/2023 Active everolimus, immunosuppressive, (ZOTRESS) 0.5 mg tablet Take 0.5 mg by mouth two times daily. Active albuterol-ipratropium (DUONEB) (2.5-0.5 mg) in 3 mL NEBULIZATION solution Inhale 1 Neb via a nebulizer every 6 hours if needed for Shortness Of Breath. 05/26/2023 Active torsemide (DEMADEX) 100 mg tablet Take 1 Tablet (100 mg) by mouth two times daily. 100mg bid 11/25/2023 Active NIFEdipine (PROCARDIA XL) 30 mg extended-release tablet Take 3 Tablets (90 mg) by mouth once daily before a meal. 11/25/2023 Active montelukast (SINGULAIR) 10 mg tabletIndications:Chr onic sinusitis, unspecified location Take 1 Tablet (10 mg) by mouth at bedtime. 90 Tablet 3 11/25/2023 Active loratadine (CLARITIN) 10 mg tabletIndications:Chr onic sinusitis, unspecified location Take 1 Tablet (10 mg) by mouth once daily. 90 Tablet 3 11/25/2023 Active levothyroxine (SYNTHROID) 88 mcg tabletIndications:Hyp othyroidism (acquired) Take 1 Tablet (88 mcg) by mouth once daily. 90 Tablet 3 11/29/2023 Active atorvastatin (LIPITOR) 40 mg tabletIndications:Hyp erlipidemia, unspecified hyperlipidemia type Take 1 Tablet (40 mg) by mouth at bedtime. 90 Tablet 12/26/2023 Active Active Problems Problem Noted Date Diagnosed [...] Anxiety state, unspecified 09/09/2006 Liver transplant Overview: 2012 On chronic immune suppression Cryptogenic cirrhosis [...] Encounters Date Type Department Care Team Description 01/26/2024 10:45 AM CDT Office Visit [facility] [address] [place] [address] Ryan Cole MD Hand Pain/problem (Lump on right hand in 2 different spots/Been there for a couple of months/A little painful /No injury) 01/26/2024 Travel 01/13/2024 Medical Messaging [facility] [address] [place] [address] Ryan Cole MD physical Therapy from Last 3 Months Immunizations Name Administration Dates Next Due AMB INFLUENZA, IIV4 (AGE=>6M OS) THO (Flu Clinic Only) 04/22/2018 COVID-19 vaccine (Moderna 100mcg/0.5mL) PF, MDV 01/21/2022,09/03/2020,08/06/2020 Hepatitis A (Adult) 12/25/2012,12/07/1998,1997 Hepatitis A, Unspecified 12/07/1998,06/08/1998 Hepatitis B (Adult) 12/07/1998, 9,06/22/1998,06/08 Hepatitis B, Unspecified 12/07/1998,06/23,06/22/1998,06/08 Influenza A (H1N1), Inactivated 05/16/2009 Influenza A (H1N1), Inactiva onel (Age >=3 Years) 05/16/2009 Influenza Virus, Unspecified 06/23/2015, 04/06/2015,04/06/2014,04/06 Influenza, High-dose Inactivated 03/23/2023 Influenza, High-dose Quadriv alent Inactivated 03/05/2021,02/11/2020 Influenza, IIV3 (Age 6-35 mos) 03/28/2016,2014,03/26/2011 Influenza, IIV3 (Age >=3 years) 03/16/20 15,02/14/2014,03/05/2013,02/18,03/26/2011,03/28/2010,04/05/2004 Influenza, IIV4 03/15/2019,04/22/2018 Influenza, IIV4 (=>6mos) MDV 03/15/2019 Influenza, Inactivated AIIV4 (Age 65+ Years) Preserv Free 04/08/2022 Pneumococcal Conj 20-valent (Prevnar 20) 05/06/2023 Pneumococcal Poly,23-Valent (Pneumovax) 04/30/2005,08/07/1995 Pneumococcal conj 13-Valent (Prevnar 13) 12/25/2012,06/23/2009 Pneumococcal, Unspecified 06/23/2014 RSV, Bivalent Vaccine Recons tituted (Abrysvo 120MCG/0.5mL) 05/13/2023 TD, UNSPECIFIED 05/11/2003 Td (Age >=7 Years) 05/11/2003 Tdap 02/19/2012 Tuberculin (PPD) 01/07/2023,12/12/2022, Tuberculin Skin Test, Unspecified 07/09/2021,03/2022,05/29/2021 Zoster (Shingrix-RZV, [...] PHQ-2 Answer Date Recorded PHQ-2 TOTAL SCORE 0 11/25/2023 Social Connections Answer Date Recorded Frequency of Communication with Friends and Fami ly 0 11/03/2023 Financial Resource Strain Answer Date R ecorded Difficulty of Paying Living Expenses 3 11/03/2023 Difficulty of Paying Living Expenses Not on file 11/03/2023 Food Insecurity Answer Date Recorded Worried About Running Out of Food in the Last Ye ar 1 11/03/2023 Transportation Needs Answer Date Record ed Lack of Transportation (Medical) 1 11/03/2023 Housing Stability Answer Date Recorded Unable to Pay for Housing in the Last Year 1 11/03/2023 Sex and Gender Information Value Date Recorded Sex Assigned at Not on file Gender Identity Not on file Sexual Orientation Not on file Obstetrics History Last Filed Vital Signs Vital Sign Reading Time Taken Comments Blood Pressure 134/63 01/26/2024 10:48 AM CDT Pulse 80 01/26/2024 10:48 AM CDT Temperature 36.8 ??C (98.2 ??F) 12/13/2021 1:07 PM CD T Respiratory Rate 24 05/24/2021 11:0 2 AM LINECASTING MACHINE KEYBOARD OPERATOR Oxygen Saturation 100% 01/26/2024 10: 48 AM CDT Inhaled Oxygen Concentration - - Weight 76.6 kg (168 lb 14.4 oz) 024 10:48 AM CDT Height 175.3 cm (5' 9) 11/25/2023 9:05 AM CDT Body Mass Index 24.94 11/25/2023 9:05 AM CDT Plan of Treatment Health Maintenance Due Date Last Done Comments Tetanus booster 02/18/2022 02/19/2012, 04/23, 05/11/2003 COVID-19 vaccine series (2022-24 season) 2024 12/23/2023, 05/13/2023, 01/21/2022, Additional history exists Influenza for age 65+ 02/22/2024 03/23/2023 , 04/08/2022, 03/05/2021, Additional history exists BMI (ht and wt on same day) for age 18+ 11/24/2024 11/25/2023, 05/24/2021, 04/26/2021, Additional history exists Depression screening for age 12+ 11/24/2024 11/25/2023, 12/13/2021, 12/18/2020, Additional history exists Medicare Wellness for age 65+ 11/25/2024 11/25/2023 Colonoscopy through age 75 07/10/202607/10 (Verified in Care Everywhere or Patient Record) Lipids for age 45-75 11/24/2028 11/25/2023, 04/26/2021, 05/02/2014, Additional history exists Tdap Completed 02/19/2012 Zoster (shingles) series for age 50+ Completed 01/06/2018, 10/03/2017, 10/03/2017 Hepatitis C screening for ag e 18-79 Completed 04/26/2021 Fecal testing non-DNA (FIT,FOBT,iFOBT) for age 45-75 Discontinued 05/01/2021, 04/03/2020, 11/19/2018 Pneumococcal series for age 65+ Completed 05/06/2023, 06/23/2014, 12/25/2012, Additional history exists Procedures Procedure Name Priority Date/Time Associated Diagnosis Comments TSH Routine 01/26/2024 11:32 AM CDT Hypothyroidism (acquired) LIPID PANEL Routine 11/25/2023 9:58 AM CDT Mixed hyperlipidemia OCCULT BLOOD IFOBT STOOL Routine 05/01/2021 11:40 AM LINECASTING MACHINE KEYBOARD OPERATOR Screening for colorectal cancer ANTI HCV Add On 04/26/2021 10:01 AM CDT Need for hepatitis C screening test from Last 3 Months or Most Recently Relevant to Health Maintenance Results * TSH (01/26/2024 11:32 AM CDT) TSH 4.10 0.27 - 4.20 uIU/mL 01/27/2024 6:01 AM CDT [facility] Blood BLOOD SPECIMEN / Unknown Venipuncture / Unknown 01/26/2024 11:32 AM CDT 01/26/2024 11:34 AM CDT [facility] - 01/27/2024 6:01 AM CDT In Adults, TSH values between 5.00 and 10.00 uIU/ml do not necessarily indicate the presence of Hypothyroidism. Correlation with clinical findings such as presence of goiter and/or Thyroperoxidase (TPO) Antibody may be helpful. For more information please refer to SEAN 2004; 291: 228-238. Ryan Cole MD CHEMISTRY [facility] [address] [place] [address], * (ABNORMAL) LIPID PANEL (11/25/2023 9:58 AM CDT) CHOLESTEROL,TOTAL 209(H) 100 - 199 mg/dL 11/25/2023 6:47 PM CDT [facility] Comment: Cholesterol, Total Reference Ranges Desirable <200 mg/dL Borderline 200-239 mg/dL High >=240 mg/dL TRIGLYCERIDES 216(H) <150 mg/dL 11/25/2023 6:47 PM CDT [facility] HDL CHOLESTEROL 52 >40 mg/dL 6:47 PM CDT [facility] NON-HDL CHOLESTEROL 157(H) <145 mg/dl 11/25/2023 6:47 PM CDT [facility] CHOL/HDL RATIO 4.02 <4.50 11/25/2023 6:47 PM CDT [facility] LDL CHOLESTEROL 114 <=130 mg/dL 11/25/2023 6:47 PM CDT [facility] VLDL CHOLESTEROL 43(H) <=30 mg/dL 11/25/2023 6:47 PM CDT [facility] PROVIDER ORDERED STATUS RANDOM 11/25/2023 6:47 PM CDT [facility] Blood BLOOD SPECIMEN / Unknown Venipuncture / Unknown 11/25/2023 9:58 AM CDT 11/25/2023 9:59 AM CDT Ryan Cole MD CHEMISTRY [facility] [address] [place] [phone], * (ABNORMAL) OCCULT BLOOD IFOBT STOOL (05/01/2021 11:40 AM LINECASTING MACHINE KEYBOARD OPERATOR) STOOL BLOOD ,IFOBT Positive(A ) Negative 05/11/2021 2:47 PM LINECASTING MACHINE KEYBOARD OPERATOR [facility] Stool STOOL SPECIMEN / Unknown Non-Blood / Unknown 05/01/2021 11:40 AM LINECASTING MACHINE KEYBOARD OPERATOR 05/09/2021 11:40 AM LINECASTING MACHINE KEYBOARD OPERATOR Ryan Cole MD LABORATORY Performing Organization Address [facility]/ZIP Co de Phone Number [facility] [address] [place] [address], * ANTI HCV (04/26/2021 10:01 AM CDT) HEPATITIS C ANTIBODY Non-React davin Non-React davin 04/26/2021 6:19 PM CDT [facility] Comment:Antibodies to HCV no t detected; does not exclude the possibility of exposure to HCV. Blood BLOOD SPECIMEN / Unknown Venipuncture / Unknown 04/26/2021 10:01 AM CDT 04/26/2021 10:01 AM CDT Ryan Cole MD [facility] [employer] [facility] [address] [place] [address], from Last 3 Months or Most Recently Relevant to Health Maintenance Advance Directives Documents on File Type Date Recorded Patient Money Examiner Expl anation Healthcare Directive 11/28/2023 024 * Full Code (Latest Code Status on File) Date Activated Date Inactivated Comments 04/30/2021 5:43 AM 04/30/2021 10:06 AM Question Answer Comments Code Status Discussion: Reviewed Preferences Care Teams Mohel Relationship Specialty Start Date End Date Ryan Cloe MD [address] [place] [address] PCP - General Family Practice 07/11/14
--- OUTSIDE RECORDS SUMMARY | 2024-02-26 16:01 | XMS_ITS | Encounter Summary ---
Author Organization [place] Address [address] [place] [address]. [place] [address] Care Team Providers Care Grass Farm Laborer Name Role Phone Sánchez Kowalski APRN EQUINE DENTIST Unavailable Marlen Esposito MD Unavailable [phone] Unavailable Unavail able Karen Steel Unavailable Marlen Esposito MD Unavailable Karen Steel Unavailable Sánchez Kowalski APRN EQUINE DENTIST Unavailable Patricia Willoughby RD Unavailable Unavail able Ryan Cole MD Primary Care Provider Marlen Esposito MD Unavailable [phone] Barbara Valdes MD Unavailable [phone] Encounter Details Date Type Department Care Team (Late st Contact Info) Description 06/13/[address] [facility] [address] [place] [address] Scan, Non-Provider Social History Tobacco [...] documented as of this encounter Care Teams Grass Farm Laborer Relationship Specialty Start Date End Date Ryan Cole MD [address] [place] [address] PCP - General 06/02/23 Sánchez Kowalski APRN EQUINE DENTIST [address] [place] [address] [phone] Nurse Practitioner Nephrology 04/11/23 Marlen Esposito MD [address] [place] [address] [phone] Surgery 04/11/[address] [address] Registered Dietitian Dietitian, Registered 04/11/23 Karen Steel LICSW Head Counselor 04/11/23 Marlen Esposito MD [address] [place] [address] [phone] Surgery 05/21/23 Karen Steel LICSW Head Counselor 05/21/23 Sánchez Kowalski APRN EQUINE DENTIST [address] [place] [address] [place] [address] Nurse Practitioner Nephrology 05/21/[address] [facility] [address] [facility] [address] [place] [address] Registered Dietitian Dietitian, Registered 05/21/23 Marlen Esposito MD [address] [place] [address] Assigned Surgical Provider 06/21/23 10/13/23 Barbara Valdes MD [address] [facility] [address] [place] [address] Assigned Surgical Provider 10/14/23 documented as of this encounter
--- OUTSIDE RECORDS SUMMARY | 2024-02-26 16:01 | XMS_ITS | Encounter Summary ---
Author Organization [place] Address [address] [place] [address]. [place] [address] Care Team Providers Care Learning Officer Name Role Phone Sánchez Kowalski APRN BURNER TENDER Unavailable Marlen Esposito MD Unavailable Patricia Willoughby RD Unavailable Unavail able Karen Steel Unavailable Marlen Esposito MD Unavailable Karen Steel Unavailable Sánchez Kowalski APRN BURNER TENDER Unavailable Patricia Willoughby RD Unavailable Unavail able Ryan Cole MD Primary Care Provider Marlen Esposito MD Unavailable [phone] Barbara Valdes MD Unavailable [phone] Encounter Details Date Type Department Care Team (Late st Contact Info) Description 06/13/2023 Documentation Only [facility] [address] [place] [address] Scan, Non-Provider Social History Tobacco [...] documented as of this encounter Care Teams Learning Officer Relationship Specialty Start Date End Date Ryan Cole MD [address] [place] [address] PCP - General 06/02/23 Sánchez Kowalski APRN BURNER TENDER [address] [place] [address] 528555 Nurse Practitioner Nephrology 04/11/23 Marlen Esposito MD [address] [place] [address] [phone] Surgery 04/11/[address] [address] Registered Dietitian Dietitian, Registered 04/11/23 Karen Steel LICSW Revenue Stamp Clerk 04/11/23 Marlen Esposito MD [address] [place] [address] [phone] Surgery 05/21/23 Karen Steel LICSW Revenue Stamp Clerk 05/21/23 Sánchez Kowalski APRN BURNER TENDER [address] [place] [address] [place] [address] Nurse Practitioner Nephrology 05/21/[address] [facility] 420 [facility] [address] [place] [address] Registered Dietitian Dietitian, Registered 05/21/23 Marlen Esposito MD [address] [place] [phone] Assigned Surgical Provider 06/21/23 10/13/23 Barbara Valdes MD [address] [facility] [address] [place] [address] Assigned Surgical Provider 10/14/23 documented as of this encounter
--- OUTSIDE RECORDS SUMMARY | 2024-02-26 16:01 | XMS_ITS | Encounter Summary ---
Author Organization [place] Address [address] [place] [address]. [place] [address] Care Team Providers Care Tube Draw Helper Name Role Phone Sánchez Kowalski APRN SOLAR SALES REP Unavailable Marlen Esposito MD Unavailable Patricia Willoughby RD Unavailable Unavail able Karen Steel Unavailable [phone] Marlen Esposito MD Unavailable Karen Steel Unavailable [phone] Sánchez Kowalski APRN SOLAR SALES REP Unavailable Patricia Willoughby RD Unavailable Unavail able Ryan Cole MD Primary Care Provider Marlen Esposito MD Unavailable [phone] Barbara Valdes MD Unavailable [phone] Encounter Details Date Type Department Care Team (Late st Contact Info) Description 06/20/2023 [facility] [address] [place] [address] Linnea Graff, RN Social History [...] as of this encounter Care Teams Tube Draw Helper Relationship Specialty Start Date End Date Ryan Cole MD [address] [place] [address] PCP - General 06/02/23 Sánchez Kowalski APRN SOLAR SALES REP [address] [place] [address] [phone] Nurse Practitioner Nephrology 04/11/23 Marlen Esposito MD [address] [place] [address] [id number] Surgery 04/11/[address] [place] [address] Registered Dietitian Dietitian, Registered 04/11/23 Karen Steel LICSW Double End Chucking Machine Operator 04/11/23 Marlen Esposito MD [address] [place] [address] [phone] Surgery 05/21/23 Karen Steel LICSW Double End Chucking Machine Operator 05/21/23 Sánchez Kowalski APRN SOLAR SALES REP [address] [place] [address] Nurse Practitioner Nephrology 05/21/[address] [facility] 420 [facility] 84 [place] [address] Registered Dietitian Dietitian, Registered 05/21/23 Marlen Esposito MD [address] [place] [phone] Assigned Surgical Provider 06/21/23 10/13/23 Barbara Valdes MD 6 [facility] [address] [place] [address] Assigned Surgical Provider 10/14/23 documented as of this encounter
--- OUTSIDE RECORDS SUMMARY | 2024-02-26 16:01 | XMS_ITS | Encounter Summary ---
Author Organization [place] Address [address] [place] [address] Care Team Providers Care Functional Tester Typewriters Name Role Phone Sánchez Kowalski APRN PICKER MACHINE OPERATOR Unavailable [phone] Marlen Esposito MD Unavailable Patricia Willoughby RD Unavailable Unavail able Karen Steel Unavailable [phone] Marlen Esposito MD Unavailable [phone] Karen Steel Unavailable Sánchez Kowalski APRN PICKER MACHINE OPERATOR Unavailable Patricia Willoughby RD Unavailable Unavail able Ryan Cole MD Primary Care Provider Marlen Esposito MD Unavailable [phone] Barbara Valdes MD Unavailable [phone] Encounter Details Date Type Department Care Team (Late st Contact Info) Description 06/06/2023 [facility] [address] [place] [address] Sánchez Kowalski APRN PICKER MACHINE OPERATOR [address] [place] [address] Social History Tobacco Use Types [...] documented as of this encounter Care Teams Functional Tester Typewriters Relationship Specialty Start Date End Date Ryan Cole MD [address] [place] [address] PCP - General 06/02/23 Sánchez Kowalski, DIRECTOR LEARNING PICKER MACHINE OPERATOR [address] [place] [address] 555125 Nurse Practitioner Nephrology 04/11/23 Marlen Esposito MD [address] [place] [address] [phone] Surgery 04/11/[address] [place] [address] Registered Dietitian Dietitian, Registered 04/11/23 Karen Steel LICSW Crossbow Maker 04/11/23 Marlen Esposito MD [address] [place] [address] [phone] Surgery 05/21/23 Karen Steel LICSW Crossbow Maker 05/21/23 Sánchez Kowalski APRN PICKER MACHINE OPERATOR [address] [place] [address] Nurse Practitioner Nephrology 05/21/[address] [place] [address] Registered Dietitian Dietitian, Registered 05/21/23 Marlen Esposito MD [address] [place] [address] [phone] Assigned Surgical Provider 06/21/23 10/13/23 Barbara Valdes MD 6 [facility] [address] [place], [place] 625045 Assigned Surgical Provider 10/14/23 documented as of this encounter
--- OUTSIDE RECORDS SUMMARY | 2024-02-26 16:01 | XMS_ITS | Encounter Summary ---
Author Organization [place] Address [address] [place] [address]. [place] [address] Care Team Providers Care Backfiller Name Role Phone Sánchez Kowalski APRN METALLURGICAL ANALYST Unavailable Marlen Esposito MD Unavailable [phone] Unavailable Unavail able Karen Steel Unavailable Marlen Esposito MD Unavailable [phone] Karen Steel Unavailable [phone] Sánchez Kowalski APRN METALLURGICAL ANALYST Unavailable [phone] Unavailable Unavail able System, Provider Not In Primary Care Provider Un available Ryan Cole MD Primary Care Provider [phone] Marlen Esposito MD Unavailable [phone] Barbara Valdes MD Unavailable [phone] Encounter Details Date Type Department Care Team (Late st Contact Info) Description 04/11/2023 [facility] [address] [place] [address] Linnea Graff, RN Social History Tobacco [...] documented as of this encounter Care Teams Backfiller Relationship Specialty Start Date End Date System, Provider Not In PCP - General Clinic 05/21/23 05/21/23 Ryan Cole MD [address] [place] [address] PCP - General 06/02/23 Sánchez Kowalski APRN METALLURGICAL ANALYST [address] [place] [address] Nurse Practitioner Nephrology 04/11/23 Marlen Esposito MD [address] [place] [address] Surgery 04/11/[address] [address] Registered Dietitian Dietitian, Registered 04/11/23 Karen Steel ACCOUNTING ASSOCIATE Overseer Kosher Kitchen 04/11/23 Marlen Esposito MD [address] [place] [address] Surgery 05/21/23 Karen Steel LICSW Overseer Kosher Kitchen 05/21/23 Sánchez Kowalski APRN METALLURGICAL ANALYST [address] [place] [address] 114725 Nurse Practitioner Nephrology 05/21/[address] [facility] 420 [facility] 84 [place] [address] Registered Dietitian Dietitian, Registered 05/21/23 Marlen Esposito MD [address] [place] [address] [phone] Assigned Surgical Provider 06/21/23 10/13/23 Barbara Valdes MD 6 [facility] [address] [place], [place] 664025 Assigned Surgical Provider 10/14/23 documented as of this encounter
--- OUTSIDE RECORDS SUMMARY | 2024-02-26 16:01 | XMS_ITS ---
Author Organization [place] Address [address] [place] [address]. [place] [address] Care Team Providers Care Electrolytic Etcher Name Role Phone Sánchez Kowalski APRN COLLIERY CLERK Unavailable Marlen Esposito MD Unavailable [phone] Unavailable Unavail able Karen Steel Unavailable Marlen Esposito MD Unavailable Karen Steel Unavailable Sánchez Kowalski APRN COLLIERY CLERK Unavailable [phone] Unavailable Unavail able Ryan Cole MD Primary Care Provider Barbara Valdes MD Unavailable [phone] Transitional Care Management Status:Closed (Closed) Start date:11/19/2023 Enrollment date:11/19/2023 End date:12/03/2023 Close reason:Goals met Continued Care and Services Coordination
--- OUTSIDE RECORDS SUMMARY | 2024-02-26 16:01 | XMS_ITS | Encounter Summary ---
Author Organization [place] Address [address] [place] [address]. [place] [address] Care Team Providers Care Lining Baster Name Role Phone Sánchez Kowalski APRN AUTO JOB ESTIMATOR Unavailable Marlen Esposito MD Unavailable [phone] Unavailable Unavail able Karen Steel Unavailable [phone] Marlen Esposito MD Unavailable [phone] Karen Steel Unavailable [phone] Sánchez Kowalski APRN AUTO JOB ESTIMATOR Unavailable Patricia Willoughby RD Unavailable Unavail able Ryan Cole MD Primary Care Provider Marlen Esposito MD Unavailable [phone] Barbara Valdes MD Unavailable [phone] Encounter Details Date Type Department Care Team (Late st Contact Info) Description 06/18/2023 Orders Only [facility] [address] [place] [address] Outside, Provider Social History Tobacco Use Types [...] Comments HLA RESULT REPORT 06/18/2023 1:05 PM EXECUTIVE LEGAL SECRETARY HLA RESULT REPORT 06/18/2023 1:05 PM EXECUTIVE LEGAL SECRETARY documented in this encounter Results * HLA RESULT REPORT (06/18/2023 1:05 PM EXECUTIVE LEGAL SECRETARY) Provider Outside LAB - IMMUNOLOGY ORD ERABLES * HLA RESULT REPORT (06/18/2023 1:05 PM EXECUTIVE LEGAL SECRETARY) Provider Outside LAB - IMMUNOLOGY ORD ERABLES documented in this encounter Visit Diagnoses Not on filedocumented in this encounter Additional Health Concerns Infection Onset Date Last Indicated Resolved Time Rule Out C-difficile 11/15/2023 11/15/2023 024 6:15 PM CDT documented as of this encounter Care Teams Lining Baster Relationship Specialty Start Date End Date Ryan Cole MD [address] [place] [address] PCP - General 06/02/23 Sánchez Kowalski APRN AUTO JOB ESTIMATOR [address] [place] [address] 997575 Nurse Practitioner Nephrology 04/11/23 Marlen Esposito MD [address] [place] [address] [id number] Surgery 04/11/[address] [place] [address] Registered Dietitian Dietitian, Registered 04/11/23 Karen Steel LICSW Slitting Machine Operator Helper 04/11/23 Marlen Esposito MD [address] [place] [address] 54752 Surgery 05/21/23 Karen Steel LICSW Slitting Machine Operator Helper 05/21/23 Sánchez Kowalski APRN [facility] [address] [place] [address] 88155 Nurse Practitioner Nephrology 05/21/[address] [facility] [address] [facility] [address] [place] [address] Registered Dietitian Dietitian, Registered 05/21/23 Marlen Esposito MD [address] [place] [address] 34738 Assigned Surgical Provider 06/21/23 10/13/23 Barbara Valdes MD 6 [facility] 2[address] [place] [address] Assigned Surgical Provider 10/14/23 documented as of this encounter
--- OUTSIDE RECORDS SUMMARY | 2024-02-26 16:01 | XMS_ITS | Encounter Summary ---
Author Organization [place] Address [address] [place] [address]. [place] [address] Care Team Providers Care Graphic Artist Name Role Phone Sánchez Kowalski APRN METER INSTALLER Unavailable Marlen Esposito MD Unavailable Patricia Willoughby RD Unavailable Unavail able Karen Steel Unavailable Marlen Esposito MD Unavailable Karen Steel Unavailable [phone] Sánchez Kowalski APRN METER INSTALLER Unavailable aPtricia Willoughby RD Unavailable Unavail able Ryan Cole MD Primary Care Provider Marlen Esposito MD Unavailable [phone] Barbara Valdes MD Unavailable [phone] Encounter Details Date Type Department Care Team (Late st Contact Info) Description 07/15/2023 [facility] [address] [place] [address] Linnea Graff, RN Social History [...] documented as of this encounter Care Teams Graphic Artist Relationship Specialty Start Date End Date Ryan Cole MD [address] [place] [address] PCP - General 06/02/23 Sánchez Kowalski APRN METER INSTALLER [address] [place] [address] 800385 Nurse Practitioner Nephrology 04/11/23 Marlen Esposito MD [address] [place] [address] [phone] Surgery 04/11/[address] [place] [address] Registered Dietitian Dietitian, Registered 04/11/23 Karen Steel LICSW Stress Engineer 04/11/23 Marlen Esposito MD [address] [place] [address] 179355 Surgery 05/21/23 Karen Steel LICSW Stress Engineer 05/21/23 Sánchez Kowalski APRN METER INSTALLER [address] [place] [address] Nurse Practitioner Nephrology 05/21/[address] [facility] 420 [facility] 84 [place] [address] Registered Dietitian Dietitian, Registered 05/21/23 Marlen Esposito MD [address] [place] [address] 26895 Assigned Surgical Provider 06/21/23 10/13/23 Barbara Valdes MD 6 [facility] [address] [place] [address] Assigned Surgical Provider 10/14/23 documented as of this encounter
--- OUTSIDE RECORDS SUMMARY | 2024-02-26 16:01 | XMS_ITS | Encounter Summary ---
Author Organization [facility] Address [address] [place] [address]. [place] [address] Care Team Providers Care Manager Supply Chain Planning Name Role Phone Sánchez Kowalski APRN LABOR GANG SUPERVISOR Unavailable Marlen Esposito MD Unavailable Patricia Willoughby RD Unavailable Unavail able Karen Steel Unavailable [phone] Marlen Esposito MD Unavailable Karen Steel Unavailable [phone] Sánchez Kowalski APRN LABOR GANG SUPERVISOR Unavailable Patricia Willoughby RD Unavailable Unavail able Ryan Cole MD Primary Care Provider Marlen Esposito MD Unavailable [phone] Barbara Valdes MD Unavailable [phone] Encounter Details Date Type Department Care Team (Late st Contact Info) Description 07/10/2023 [facility] [address] [place] [address] Linnea Graff, RN Social History [...] as of this encounter Care Teams Manager Supply Chain Planning Relationship Specialty Start Date End Date Ryan Cole MD [address] [place] [address] PCP - General 06/02/23 Sánchez Kowalski APRN LABOR GANG SUPERVISOR [address] [place] [address] [phone] Nurse Practitioner Nephrology 04/11/23 Marlen Esposito MD [address] [place] [address] 156105 Surgery 04/11/[address] [place] [address] Registered Dietitian Dietitian, Registered 04/11/23 Karen Steel LICSW Backend Java Developer 04/11/23 Marlen Esposito MD [address] [place] [address] [phone] Surgery 05/21/23 Karen Steel LICSW Backend Java Developer 05/21/23 Sánchez Kowalski APRN LABOR GANG SUPERVISOR [address] [place] [address] Nurse Practitioner Nephrology 05/21/[address] [facility] 420 [facility] 84 [place] [address] Registered Dietitian Dietitian, Registered 05/21/23 Marlen Esposito MD [address] [place] [address] 10853 Assigned Surgical Provider 06/21/23 10/13/23 Barbara Valdes MD 6 [facility] 2[address] [place] [address] Assigned Surgical Provider 10/14/23 documented as of this encounter
--- NOTE | 2024-02-26 16:02 | CRLHL7_ITS ---
For Patients: As a result of the Century Cures Act, medical imaging exams and procedure reports are released immediately into your electronic medical record. You may view this report before your referring provider. If you have questions, please contact your health care provider. Indication: RT HIP PAIN AFTER FALL Technique: Right hip CT without IV contrast Comparison: Same-day right hip radiographs Findings: Age indeterminate, though likely acute, impacted right femoral neck fracture. There is no malalignment. No significant right hip effusion. Mild osteoarthritic degenerative changes of the bilateral femoroacetabular joints. Degenerative changes of the visualized lower lumbar spine and mild osteoarthritic degenerative changes of the bilateral sacroiliac joints. No suspicious osseous The visualized intra-abdominal and intrapelvic organs are without acute abnormality. Calcific atherosclerosis of the aortoiliac system and its branches. Small bilateral fat containing inguinal hernias and likely small fat containing umbilical hernia. Impression: Age indeterminate, though likely acute, impacted right femoral neck fracture. Please note that all CT scans at this facility use dose modulation, iterative reconstruction, and/or weight-based dosing when appropriate to reduce radiation dose to as low as reasonably achievable. Dictated by Den Khanna MD @ 02/26/2024 5:45:19 PM (Electronically Signed)
[2024-02-26] MEDS: MORPHINE 4 MG/ML INJ IVP (18:31)
--- NOTE | 2024-02-26 19:27 | ED.NURSE ---
Per Dr. Richey patient is able to take his own evening meds including his transplant medications
[2024-02-26 19:41] LABS: Basophils Absolute Auto 0.01 K/uL (0.00-0.30); Basophils Percent Auto 0.1 % (0.0-3.0); Eosinophils Absolute Auto 0.04 K/uL (0.00-0.50); Eosinophils Percent Auto 0.6 % (0.0-7.0); Hematocrit 39.4 % (37.0-53.0); Hemoglobin* 12.7 gm/dL (13.5-17.5); Immature Granulocytes Abs Auto 0.04 K/uL (0.00-0.30); Immature Granulocytes Pct Auto 0.6 %; Lymphocytes Percent Auto 15.4 % (20-44); Mean Corpuscular HGB Conc 32 gm/dL (32-36); Mean Corpuscular Hemoglobin 30 pg (26-34); Mean Corpuscular Volume 93 fL (80-100); Monocytes Percent Auto 9.6 % (0.0-11.0); Neutrophils Percent Auto 73.7 % (42.0-72.0); Platelet Count* 220 K/uL (140-440); RDW Coefficient of Variation % 15.9 % (11.5-15.5); Red Blood Count 4.26 m/uL (4.30-5.90); White Blood Count* 6.77 K/uL (4.50-11.00)
[2024-02-26 19:58] LABS: Chloride* 90 mmol/L (96-114); Sodium* 133 mmol/L (135-149)
[2024-02-26 20:00] LABS: Anion Gap 17 mEq/L (7-15); Carbon Dioxide* 26 mmol/L (20-32); Est. Creatinine Clearance* 13.94; Estimated Glomerular Filt Rate 12 ml/min; Slide Review Reflex No
[2024-02-26 20:01] LABS: Alanine Aminotransferase* 23 U/L (4-50); Alkaline Phosphatase* 140 U/L (40-150); Aspartate Amino Transferase* 30 U/L (12-35); Blood Urea Nitrogen* 51 mg/dL (7-30); Calcium* 9.3 mg/dL (8.4-10.6); Glucose* 97 mg/dL (60-115); Total Protein* 8.6 g/dL (6.0-8.3)
[2024-02-27 00:02] VITALS: BP 167/84; PULSE 84; RESP 20
[2024-02-27] MEDS: HYDROmorphone 0.5 mg/0.5 ml inj IVP (00:09)
[2024-02-27 00:13] VITALS: PULSE 75; O2SAT 94
[2024-02-27 00:15] VITALS: PULSE 73; O2SAT 91
== END 2024-02-27 00:29 | disposition short-term general hospital (02) ==
PROVIDERS: Emergency Provider Student in an Organized Health Care Education/Training Program; PCP Surgery
DX: S72.001A Fracture of unspecified part of neck of right femur, initial encounter for closed fracture (principal); V19.9XXA Pedal cyclist (driver) (passenger) injured in unspecified traffic accident, initial encounter
CPT/HCPCS: 36415; 73502; 73700; 80053; 85025; 94761; 96374; 96375; 99283; 99285; A9270; J1170; J2270

== ENCOUNTER 2024-02-27 00:30 | Outpatient (CLI) | payer MEDICARE, BC, SELFPAY ==
--- OUTSIDE RECORDS SUMMARY | 2024-02-29 09:38 | XMS_ITS | Clinical Summary ---
Author Organization [place] Address [address] [place] [address] Care Team Providers Care Adolescent Medicine Specialist Name Role Phone Sánchez Kowalski APRN MACHINE ADJUSTER LEADER Unavailable Marlen Esposito MD Unavailable Patricia Willoughby RD Unavailable Unavail able Karen Steel HOGSHEAD HOOPER Unavailable [phone] Marlen Esposito MD Unavailable [phone] Karen Steel HOGSHEAD HOOPER Unavailable [phone] Sánchez Kowalski APRN MACHINE ADJUSTER LEADER Unavailable Patricia Willoughby RD Unavailable Unavail able Ryan Cole MD Primary Care Provider [phone] Barbara Valdes MD Unavailable [phone] Allergies Active Allergy Reactions Criticality Noted [...] MOUTH BEFORE DENTAL APPOINTMENT 08/08/2022 Active B Bbalels-N-Rresr Acid (DAVE-DAVID RX) 1 mg TABS Take [...] Encounters Date Type Department Care Team Description 02/26/2024 - 02/27/2024 3:56 AM CDT Emergency [facility] Emergency Department [address] [place] [id number] Zarina Iniguez MD Discharge Disposition: ED Dismiss - Never Arrived from Last 3 Months Family History Medical [...] 60+ series) 2014 FALL RISK ASSESSMENT 09/14/2019 FIT 05/01/2022 05/01/2021 PHQ-2 (once per calendar year) 2023 BMP 02/18/2024 11/18/2023, 10/22, 11/16/2023, Additional history exists COVID-19 Vaccine ( season) 2024 12/23/2023, 05/13/2023, 01/21/2022, Additional history exists INFLUENZA VACCINE (#1) 2024 , 04/08/2022, 04/08/2022, Additional history exists HEMOGLOBIN 05/20/2024 11/18/2023, 10/22, 11/16/2023, Additional history exists MEDICARE ANNUAL WELLNESS VISIT 11/24/2024 11/25/2023 GLUCOSE 11/17/2026 11/18/2023, 10/22, 11/16/2023, Additional history exists COLONOSCOPY 07/10/2031 07/10/2021, 06/22/2012 COLORECTAL CANCER SCREENING 07/10/2031 DTAP/TDAP/TD IMMUNIZATION (4 - Td or Tdap) 12/22/2033 12/23/2023, 02/19/2012, 05/11/2003, Additional history exists ZOSTER IMMUNIZATION Completed 01/06/2018, 8 Pneumococcal Vaccine: 65+ Years Completed 05/06/2023, 06/23/2014, 06/23/2014, Additional history exists HEPATITIS C SCREENING Completed 06/02/2023 PHOSPHORUS Completed 11/16/2023, 11/13/2023 ALK PHOS Completed 11/18/2023, 10/22, 11/16/2023, Additional history exists MENINGITIS IMMUNIZATION Aged Out 02/24/2024, 12/22 No longer eligible based on patient's age to complete this topic HPV IMMUNIZATION Aged Out No longer e [...] HEPATITIS C ANTIBODY Routine 06/02/2023 2:36 PM MUSIC ENGRAVER History of liver transplant (H) Hypertensive kidney [...] LAB - BLOOD ORDERAB LES UR LABORATORY [facility] [address] [facility], [address] [address] * (ABNORMAL) CBC with platelets [...] LAB - BLOOD ORDERAB LES UR LABORATORY [facility] [address] [facility], [address] [address] * Phosphorus (11/16/2023 6:40 AM CDT) Phosphorus 3.3 2.5 - 4.5 mg/dL 11/16/2023 10:02 AM CDT UR LABORATORY Blood STRUCTURE OF RIGHT UPPER LIMB / Unknown Venipuncture / Unknown 11/16/2023 6:40 AM CDT 11/16/2023 6:58 AM CDT Lorena Greene DO LAB - BLOOD ORDERABL ES UR LABORATORY [facility] [address] [facility], [address] [place] [address] * Hepatitis C antibody [[id number]] (06/02/2023 2:36 PM MUSIC ENGRAVER) Hepatitis C Antibody Nonreactive Nonreactive 06/03/2023 8:52 AM MUSIC ENGRAVER [facility] DO Blood STRUCTURE OF LEFT UPPER LIMB / Unknown Venipuncture / Unknown 06/02/2023 2:36 PM MUSIC ENGRAVER 06/02/2023 2:37 PM MUSIC ENGRAVER Narrative [facility]/PROT/ENDO - 06/03/2023 8:52 AM MUSIC ENGRAVER Assay performance characteristics have not been established for newborns, infants, and children. Sánchez Kowalski APRN MACHINE ADJUSTER LEADER LAB - BLOOD O RDERABLES [facility]/PROT/ENDO [facility]/Prot/Endo [address] [facility], Room [address] [phone] from Last 3 Months or Most Recently Relevant to Health Maintenance Advance Directives For more information, please contact: [phone] * Full Code (Latest Code Status on File) Date Activated Date Inactivated Comments 11/11/2023 9:44 PM 11/18/2023 12:47 PM All basic a nd advanced life-sustaining interventions are performed as appropriate Question Answer Comments Code status determined by: Discussion with patie nt/ legal decision maker * Full Code Date Activated Date Inactivated Comments 11/11/2023 9:30 PM 11/11/2023 9:44 PM All basic an d advanced life-sustaining interventions are performed as appropriate Question Answer Comments Code status determined by: Unable to dis cuss and no AD/POLST on file; continue PREVIOUSLY ORDERED code status Care Teams Adolescent Medicine Specialist Relationship Specialty Start Date End Date Ryan Cole MD [address] [place] [address] PCP - General 06/02/23 Sánchez Kowalski APRN MACHINE ADJUSTER LEADER [address] [place] [address] 348335 Nurse Practitioner Nephrology 04/11/23 Marlen Esposito MD [address] [place] [address] [phone] Surgery 04/11/[address] [place] [address] Registered Dietitian Dietitian, Registered 04/11/23 Karen Steel LICSW Elevator Serviceman 04/11/23 Marlen Esposito MD [address] [place] [address] Surgery 05/21/23 Karen Steel LICSW Elevator Serviceman 05/21/23 Sánchez Kowalski APRN MACHINE ADJUSTER LEADER [address] [place] [address]85 Nurse Practitioner Nephrology 05/21/[address] [facility] 420 [facility] 84 [place] [address] Registered Dietitian Dietitian, Registered 05/21/23 Barbara Valdes MD [address] [facility] 2A [place] [address] Assigned Surgical Provider 10/14/23
--- OUTSIDE RECORDS SUMMARY | 2024-02-29 09:38 | XMS_ITS | Encounter Summary ---
Author Organization [facility] Address [address] [place] [address]. [place] [address] Care Team Providers Care Education Manager Name Role Phone Sánchez Kowalski APRN ICT EDUCATOR Unavailable [phone] Marlen Esposito MD Unavailable [phone] Unavailable Unavail able Karen Steel Unavailable Marlen Esposito MD Unavailable [phone] Karen Steel Unavailable [phone] Sánchez Kowalski APRN ICT EDUCATOR Unavailable [phone] Unavailable Unavail able Ryan Cole MD Primary Care Provider Barbara Valdes MD Unavailable [phone] Encounter Details Date Type Department Care Team (Late st Contact Info) Description 02/26/2024 - 02/27/2024 3:56 AM CDT Emergency [facility] Emergency Department [facility] [place] [phone] Zarina Iniguez MD [facility] [place] [address] Discharge Disposition: ED Dismiss - Never Arrived Social History Tobacco Use Types Packs/Day Years [...] on file documented as of this encounter Medications at Time of Discharge Medication Sig Dispensed Refills Start Date End Date amoxicillin (AMOXIL) 500 MG capsule TAKE 4 CAPSULES BY MOUTH BEFORE DENTAL APPOINTMENT 08/08/2022 atorvastatin (LIPITOR) 10 MG tablet Take 10 mg by mouth at bedtime azaTHIOprine (IMURAN) 50 MG tabletIndications:Hist ory of liver transplant (H) Take 1 tablet (50 mg) by mouth 2 times daily 11/25/2023 B Zuptvsk-B-Pavzo Acid (DAVE-DAVID RX) 1 mg TABS Take [...] by mouth 2 times daily 03/18/2023 03/17/2024 documented as of this encounter Plan of Treatment Not on file documented as of this encounter Visit Diagnoses Not on filedocumented in this encounter Care Teams Education Manager Relationship Specialty Start Date End Date Ryan Cole MD [address] [place] [address] PCP - General 06/02/23 Sánchez Kowalski APRN ICT EDUCATOR [address] [place] [address] [phone] Nurse Practitioner Nephrology 04/11/23 Marlen Esposito MD [address] [place] [address] 580605 Surgery 04/11/[address] [address] Registered Dietitian Dietitian, Registered 04/11/23 Karen Steel LICSW Dredge Pipe Operator 04/11/23 Marlen Esposito MD [address] [place] [address] [phone] Surgery 05/21/23 Karen Steel LICSW Dredge Pipe Operator 05/21/23 Sánchez Kowalski APRN ICT EDUCATOR [address] [place] [address] Nurse Practitioner Nephrology 05/21/[address] [address] Registered Dietitian Dietitian, Registered 05/21/23 Barbara Valdes MD [address] [place] [address] Assigned Surgical Provider 10/14/23 documented as of this encounter
--- OUTSIDE RECORDS SUMMARY | 2024-02-29 09:38 | XMS_ITS | Clinical Summary ---
Author Organization [employer] Address [address] [place] [address] Phone Care Team Providers Care Mail Carrier Technician Name Role Phone Unavailable Primary Care Provider Unavailabl e Source Comments [employer] is fully rolled out on [employer]. Last update 11/25/08.[employer] Allergies Active Allergy Reactions Criticality Noted Date [...] by mouth twice daily. 03/18/2023 03/17/2024 Active Encounters Date Type Department Care Team Description 02/27/[address] [facility] [place] [facility] Radiology Department [address] [address] Provider, Outside Referral of patient (Primary Dx) from Last 3 Months Social History Tobacco Use Types Packs/Day Years [...] FIT/Cologuard 1954 Sigmoidoscopy 1954 Periodontal Maintenance 1968 PREVENTATIVE VISIT 1972 HEALTH MAINTENANCE PROTOCOL 1973 Imm: HepB (3 of 3 - 19+ 3-dose series) 02/01/1999 12/07/1998, 07/06/1998, 06/22/1998, Additional history exists Colorectal Cancer Screening 05/01/2022 iFOB/FIT 05/01/2022 05/01/2021, 03/23, 11/19/2018 Imm: Flu (#1) 02/22/2024 03/23/2023, 02/21, 02/11/2020, Additional history exists Medicare Annual Wellness 11/24/2024 11/25/2023 Lipid Screening 12/22/2028 12/23/2023, 0609/2023, 02/05/2023, Additional history exists Imm: DTaP/Tdap (4 - Td or Tdap) 12/22/2033 12/23/2023, 02/19/2012, 05/11/2003 Imm: HepA Aged Out 12/25/2012, 11/21, 06/08/1998 No longer eligible based on patient's age to complete this topic Imm: Zoster Completed 01/06/2018, 10/03/2017 Imm: Pneumonia greater than 65 years Completed 05/06/2023, 06/23/2014, 06/23/2014, Additional history exists Hepatitis C Screening Completed 06/02/2023 Abdominal Aortic Aneurysm (AAA) Screening Completed 12/23/2023, 08/09/2023 Imm: COVID-19 Completed 12/23/2023, 04/24, 01/21/2022, Additional history exists Imm: Hib Aged Out 12/23/2023 No longer eligi ble based on patient's age to complete this topic Imm: Meningitis Aged Out 02/24/2024, 12/23/2023 No longer eligible based on patient's age to complete this topic Imm: HPV Aged Out No longer eligi ble based on patient's age to complete this topic Procedures Procedure Name Priority Date/Time Associated Diagnosis Comments CT LOWER EXTREMITY OUTSIDE FILMS Routine 02/26/2024 5:08 PM CDT Referral of patient XR LOWER EXTREMITY OUTSIDE FILMS Routine 02/26/2024 3:45 PM CDT Referral of patient from Last 3 Months Results * CT LOWER EXTREMITY OUTSIDE FILMS (02/26/2024 5:08 PM CDT) Fredo User [id number] - 02/27/2024 7:40 AM CDT Outside Film Only Outside Provider RAD OUTSIDE FILMS * XR LOWER EXTREMITY OUTSIDE FILMS (02/26/2024 3:45 PM CDT) Narrative User, [id number] - 02/27/2024 7:39 AM CDT Outside Film Only Outside Provider RAD OUTSIDE FILMS from Last 3 Months
--- OUTSIDE RECORDS SUMMARY | 2024-02-29 09:38 | XMS_ITS | Encounter Summary ---
Author Organization [facility] Address [address] [place] [address]. [place] [address] Care Team Providers Care Veneer Drier Name Role Phone Sánchez Kowalski APRN AIRCRAFT DESIGN ENGINEER Unavailable Marlen Esposito MD Unavailable Patricia Willoughby RD Unavailable Unavail able Karen Steel Unavailable [phone] Marlen Esposito MD Unavailable [phone] Karen Steel Unavailable Sánchez Kowalski APRN AIRCRAFT DESIGN ENGINEER Unavailable Patricia Willoughby RD Unavailable Unavail able Ryan Cole MD Primary Care Provider Marlen Esposito MD Unavailable [phone] Barbara Valdes MD Unavailable [phone] Encounter Details Date Type Department Care Team (Late st Contact Info) Description 06/20/2023 [facility] [address] [place] [address] Linnea Graff, RN Social History [...] as of this encounter Care Teams Veneer Drier Relationship Specialty Start Date End Date Ryan Cole MD [address] [place] [address] PCP - General 06/02/23 Sánchez Kowalski APRN AIRCRAFT DESIGN ENGINEER [address] [place] [address] [phone] Nurse Practitioner Nephrology 04/11/23 Marlen Esposito MD [address] [place] [address] [phone] Surgery 04/11/[address] [place] [address] Registered Dietitian Dietitian, Registered 04/11/23 Karen Steel LICSW Ms Sql Dba 04/11/23 Marlen Esposito MD [address] [place] [address] [phone] Surgery 05/21/23 Karen Steel LICSW Ms Sql Dba 05/21/23 Sánchez Kowalski APRN AIRCRAFT DESIGN ENGINEER [address] [place] [address] Nurse Practitioner Nephrology 05/21/[address] [facility] [address] [facility] 84 [place] [address] Registered Dietitian Dietitian, Registered 05/21/23 Marlen Esposito MD [address] [place] [address] Assigned Surgical Provider 06/21/23 10/13/23 Barbara Valdes MD 6 [facility] 2[address] [place] [address] Assigned Surgical Provider 10/14/23 documented as of this encounter
--- OUTSIDE RECORDS SUMMARY | 2024-02-29 09:38 | XMS_ITS | Encounter Summary ---
Author Organization [facility] Address [address] [facility] [place] [address] Phone Care Team Providers Care Resawyer Name Role Phone Unavailable Primary Care Provider Unavailabl e Encounter Details Date Type Department Care Team (Late st Contact Info) Description 02/27/2024 Orders Only [facility] Film Room [facility] Radiology Department [facility] [address] [facility] [address] Provider, [place] [address] Referral of patient (Primary Dx) Social History Tobacco Use Types Packs/Day Years Used Date Smoking Tobacco: Never Assessed Sex and Gender Information Value Date Recorded Sex Assigned at Not on file Gender Identity Not on file Sexual Orientation Not on file documented as of this encounter Plan of Treatment Not on file documented as of this encounter Results * CT LOWER EXTREMITY OUTSIDE FILMS (02/26/2024 5:08 PM CDT) Olga Lidia WalkerSilent-Scheduler - 02/27/2024 7:40 AM CDT Outside Film Only Outside Provider RAD OUTSIDE FILMS * XR LOWER EXTREMITY OUTSIDE FILMS (02/26/2024 3:45 PM CDT) Olga Lidia WalkerSilent-Scheduler - 02/27/2024 7:39 AM CDT Outside Film Only Outside Provider RAD OUTSIDE FILMS documented in this encounter Visit Diagnoses Diagnosis Referral of patient- Primary Referral of patient without examination or treatment documented in this encounter
--- OUTSIDE RECORDS SUMMARY | 2024-02-29 09:38 | XMS_ITS | Encounter Summary ---
Author Organization [facility] Address [address] [place] [address]. [place] [address] Care Team Providers Care Home Economist Name Role Phone Sánchez Kowalski APRN BULLET ASSEMBLY PRESS SETTER OPERATOR Unavailable [phone] Marlen Esposito MD Unavailable Patricia Willoughby RD Unavailable Unavail able Karen Steel Unavailable Marlen Esposito MD Unavailable Karen Steel Unavailable [phone] Sánchez Kowalski APRN BULLET ASSEMBLY PRESS SETTER OPERATOR Unavailable Patricia Willoughby RD Unavailable Unavail able Ryan Cole MD Primary Care Provider Marlen Esposito MD Unavailable [phone] Barbara Valdes MD Unavailable [phone] Encounter Details Date Type Department Care Team (Late st Contact Info) Description 09/01/2023 [facility] Trans[facility] Clinic [address] [place] [address] Linnea Graff, RN Social History [...] as of this encounter Care Teams Home Economist Relationship Specialty Start Date End Date Ryan Cole MD [address] [place] [address] PCP - General 06/02/23 Sánchez Kowalski APRN BULLET ASSEMBLY PRESS SETTER OPERATOR [address] [place] [address] [id number] Nurse Practitioner Nephrology 04/11/23 Marlen Esposito MD [address] [place] [address] [id number] Surgery 04/11/[address] [place] [address] Registered Dietitian Dietitian, Registered 04/11/23 Karen Steel LICSW Certified Welding Inspector 04/11/23 Marlen Esposito MD [address] [place] [address] [id number] Surgery 05/21/23 Karen Steel LICSW Certified Welding Inspector 05/21/23 Sánchez Kowalski APRN BULLET ASSEMBLY PRESS SETTER OPERATOR [address] [place] [address] Nurse Practitioner Nephrology 05/21/[address] [facility] 420 [facility] 84 [place] [address] Registered Dietitian Dietitian, Registered 05/21/23 Marlen Esposito MD [address] [place] [address] 7[address] Assigned Surgical Provider 06/21/23 10/13/23 Barbara Valdes MD 6 [facility] [address] [place] [address] Assigned Surgical Provider 10/14/23 documented as of this encounter
--- OUTSIDE RECORDS SUMMARY | 2024-02-29 09:38 | XMS_ITS | Referral Summary ---
Author Organization [facility] Address [address] [facility] [place] [address] Phone Care Team Providers Care Electric Razor Assembler Name Role Phone Unavailable Primary Care Provider Unavailabl e Source Comments [employer] is fully rolled out on [employer]. Last update 11/25/08.[facility] Encounters Date Type Department Care Team Description 02/27/2024 Orders Only [facility] Film Room [facility] Radiology Department ESTEFANI [address] [facility] [address] Provider, Outside Referral of patient (Primary Dx) from Last 3 Months Allergies Active Allergy [...] - Plan of Treatment Not on file Procedures Procedure Name Priority Date/Time Associated Diagnosis Comments CT LOWER EXTREMITY OUTSIDE FILMS Routine 02/26/2024 5:08 PM CDT Referral of patient XR LOWER EXTREMITY OUTSIDE FILMS Routine 02/26/2024 3:45 PM CDT Referral of patient from Last 3 Months Results * CT LOWER EXTREMITY OUTSIDE FILMS (02/26/2024 5:08 PM CDT) Narrative User, [id number] - 02/27/2024 7:40 AM CDT Outside Film Only Outside Provider RAD OUTSIDE FILMS * XR LOWER EXTREMITY OUTSIDE FILMS (02/26/2024 3:45 PM CDT) Narrative User, [id number] - 02/27/2024 7:39 AM CDT Outside Film Only Outside Provider RAD OUTSIDE FILMS from Last 3 Months
--- OUTSIDE RECORDS SUMMARY | 2024-02-29 09:38 | XMS_ITS | Encounter Summary ---
Author Organization [place] Address [address] [place] [address]. [place] [address] Care Team Providers Care Professor Of Poultry Science Name Role Phone Sánchez Kowalski APRN MANAGER DRUG SAFETY Unavailable Marlen Esposito MD Unavailable Patricia Willoughby RD Unavailable Unavail able Karen Steel Unavailable Marlen Esposito MD Unavailable [phone] Karen Steel Unavailable [phone] Sánchez Kowalski APRN MANAGER DRUG SAFETY Unavailable Patricia Willoughby RD Unavailable Unavail able Ryan Cole MD Primary Care Provider [phone] Marlen Esposito MD Unavailable [phone] Barbara Valdes MD Unavailable [phone] Encounter Details Date Type Department Care Team (Late st Contact Info) Description 07/21/2023 [facility] Transplant Clinic [address] [place] [address] Linnea Graff, RN Social History [...] of this encounter Care Teams Professor Of Poultry Science Relationship Specialty Start Date End Date Ryan Cole MD [address] [place] [address] PCP - General 06/02/23 Sánchez Kowalski APRN MANAGER DRUG SAFETY [address] [place] [address] 232965 Nurse Practitioner Nephrology 04/11/23 Marlen Esposito MD [address] [place] [address] [id number] Surgery 04/11/[address] [place] [address] Registered Dietitian Dietitian, Registered 04/11/23 Karen Steel LICSW Vmware Architect 04/11/23 Marlen Esposito MD [address] [place] [address] [phone] Surgery 05/21/23 Karen Steel LICSW Vmware Architect 05/21/23 Sánchez Kowalski APRN MANAGER DRUG SAFETY [address] [place] [address] Nurse Practitioner Nephrology 05/21/[address] [facility] 420 [facility] 84 [place] [address] Registered Dietitian Dietitian, Registered 05/21/23 Marlen Esposito MD [address] [place] [address] 85[address] Assigned Surgical Provider 06/21/23 10/13/23 Barbara Valdes MD 6 [facility] 2[address] [place] [address] Assigned Surgical Provider 10/14/23 documented as of this encounter
--- OUTSIDE RECORDS SUMMARY | 2024-02-29 09:38 | XMS_ITS | Encounter Summary ---
Author Organization [place] Address [address] [place] [address]. [place] [address] Care Team Providers Care Guard Immigration Name Role Phone Sánchez Kowalski APRN GATHERING MACHINE SETTER Unavailable Marlen Esposito MD Unavailable [phone] Unavailable Unavail able Karen Steel Unavailable Marlen Esposito MD Unavailable [phone] Karen Steel Unavailable Sánchez Kowalski APRN GATHERING MACHINE SETTER Unavailable Patricia Willoughby RD Unavailable Unavail able Ryan Cole MD Primary Care Provider Marlen Esposito MD Unavailable [phone] Barbara Valdes MD Unavailable [phone] Encounter Details Date Type Department Care Team (Late st Contact Info) Description 09/10/2023 [facility] Trans[facility] Clinic [address] [place] [address] Linnea Graff, RN Social History [...] documented as of this encounter Care Teams Guard Immigration Relationship Specialty Start Date End Date Ryan Cole MD [address] [place] [address] PCP - General 06/02/23 Sánchez Kowalski APRN GATHERING MACHINE SETTER [address] [place] [address] 835215 Nurse Practitioner Nephrology 04/11/23 Marlen Esposito MD [address] [place] [address] [id number] Surgery 04/11/[address] [place] [address] Registered Dietitian Dietitian, Registered 04/11/23 Karen Steel LICSW Energy Advisor 04/11/23 Marlen Esposito MD [address] [place] [address] [id number] Surgery 05/21/23 Karen Steel LICSW Energy Advisor 05/21/23 Sánchez Kowalski APRN GATHERING MACHINE SETTER [address] [place] [address] Nurse Practitioner Nephrology 05/21/[address] [facility] 420 [facility] 84 [place] [address] Registered Dietitian Dietitian, Registered 05/21/23 Marlen Esposito MD [address] [place] [address] Assigned Surgical Provider 06/21/23 10/13/23 Barbara Valdes MD 6 [facility] [address] [place] [address] Assigned Surgical Provider 10/14/23 documented as of this encounter
--- OUTSIDE RECORDS SUMMARY | 2024-02-29 09:38 | XMS_ITS | Encounter Summary ---
Author Organization [facility] Address [address] [place] [address]. [place] [address] Care Team Providers Care Requirements Manager Name Role Phone Sánchez Kowalski APRN SPA EXPERIENCE COORDINATOR Unavailable Marlen Esposito MD Unavailable Patricia Willoughby RD Unavailable Unavail able Karen Steel Unavailable Marlen Esposito MD Unavailable Karen Steel Unavailable [phone] Sánchez Kowalski APRN SPA EXPERIENCE COORDINATOR Unavailable Patricia Willoughby RD Unavailable Unavail able Ryan Cole MD Primary Care Provider Mralen Esposito MD Unavailable [phone] Barbara Valdes MD Unavailable [phone] Encounter Details Date Type Department Care Team (Late st Contact Info) Description 08/13/2023 [facility] Trans[facility] [address] [place] [address] Linnea Graff, RN Social History [...] documented as of this encounter Care Teams Requirements Manager Relationship Specialty Start Date End Date Ryan Cole MD [address] [place] [address] PCP - General 06/02/23 Sánchez Koawlski APRN SPA EXPERIENCE COORDINATOR [address] [place] [address] 664515 Nurse Practitioner Nephrology 04/11/23 Marlen Esposito MD [address] [place] [address] [id number] Surgery 04/11/[address] [place] [address] Registered Dietitian Dietitian, Registered 04/11/23 Karen Steel LICSW Medical Records Receptionist 04/11/23 Marlen sEposito MD [address] [place] [address] [id number] Surgery 05/21/23 Karen Steel LICSW Medical Records Receptionist 05/21/23 Sánchez Kowalski APRN SPA EXPERIENCE COORDINATOR 9[address] [place] [address] Nurse Practitioner Nephrology 05/21/[address] [facility] 420 [facility] 84 [place] [address] Registered Dietitian Dietitian, Registered 05/21/23 Marlen Esposito MD [address] [place] [address] Assigned Surgical Provider 06/21/23 10/13/23 Barbara Valdes MD 6 [facility] 2A [place] [address] Assigned Surgical Provider 10/14/23 documented as of this encounter
--- OUTSIDE RECORDS SUMMARY | 2024-02-29 09:38 | XMS_ITS | Encounter Summary ---
Author Organization [facility] Address [address] [place] [address]. [place] [address] Care Team Providers Care Service Plumber Name Role Phone Sánchez Kowalski APRN APPLICATIONS SUPPORT SPECIALIST Unavailable Marlen Esposito MD Unavailable [phone] Unavailable Unavail able Karen Steel Unavailable Marlen Esposito MD Unavailable Karen Steel Unavailable [phone] Sánchez Kowalski APRN APPLICATIONS SUPPORT SPECIALIST Unavailable Patricia Willoughby RD Unavailable Unavail able Ryan Cole MD Primary Care Provider [phone] Marlen Esposito MD Unavailable [phone] Barbara Valdes MD Unavailable [phone] Encounter Details Date Type Department Care Team (Late st Contact Info) Description 07/27/2023 [facility] Transplant Clinic [address] [place] [address] Linnea Graff, RN Social History [...] as of this encounter Care Teams Service Plumber Relationship Specialty Start Date End Date Ryan Cole MD [address] [place] [address] PCP - General 06/02/23 Sánchez Kowalski APRN APPLICATIONS SUPPORT SPECIALIST [address] [place] [address] 057425 Nurse Practitioner Nephrology 04/11/23 Marlen Esposito MD [address] [place] [address] [phone] Surgery 04/11/[address] [place] [address] Registered Dietitian Dietitian, Registered 04/11/23 Karen Steel LICSW Sheriffs 04/11/23 Marlen Esposito MD [address] [place] [address] 594265 Surgery 05/21/23 Karen Steel LICSW Sheriffs 05/21/23 Sánchez Kowalski APRN APPLICATIONS SUPPORT SPECIALIST [address] [place] [address] Nurse Practitioner Nephrology 05/21/[address] [facility] 420 [facility] 84 [place] [address] Registered Dietitian Dietitian, Registered 05/21/23 Marlen Esposito MD [address] [place] [address] Assigned Surgical Provider 06/21/23 10/13/23 Barbara Valdes MD 6 [facility] 2[address] [place] [address] Assigned Surgical Provider 10/14/23 documented as of this encounter
--- OUTSIDE RECORDS SUMMARY | 2024-02-29 09:38 | XMS_ITS | Encounter Summary ---
Author Organization [facility] Address [address] [place] [address]. [place] [address] Care Team Providers Care Control System Computer Scientist Name Role Phone Sánchez Kowalski APRN PRODUCTION STAGE MANAGER Unavailable Marlen Esposito MD Unavailable Patricia Willoughby RD Unavailable Unavail able Karen Steel Unavailable Marlen Esposito MD Unavailable [phone] Karen Steel Unavailable [phone] Sánchez Kowalski APRN PRODUCTION STAGE MANAGER Unavailable Patricia Willoughby RD Unavailable Unavail able Ryan Cole MD Primary Care Provider Marlen Esposito MD Unavailable [phone] Barbara Valdes MD Unavailable [phone] Encounter Details Date Type Department Care Team (Late st Contact Info) Description 07/10/2023 [facility] Transplant Clinic [address] [place] [address] Linnea Graff, RN Social History [...] as of this encounter Care Teams Control System Computer Scientist Relationship Specialty Start Date End Date Ryan Cole MD [address] [place] [address] PCP - General 06/02/23 Sánchez Kowalski APRN PRODUCTION STAGE MANAGER [address] [place] [address] 007575 Nurse Practitioner Nephrology 04/11/23 Marlen Esposito MD [address] [place] [address] [phone] Surgery 04/11/[address] [place] [address] Registered Dietitian Dietitian, Registered 04/11/23 Karen Steel LICSW Manager Cleaning 04/11/23 Marlen Esposito MD [address] [place] [address] [phone] Surgery 05/21/23 Karen Steel LICSW Manager Cleaning 05/21/23 Sánchez Kowalski APRN PRODUCTION STAGE MANAGER [address] [place] [address] Nurse Practitioner Nephrology 05/21/[address] [facility] 420 [facility] 84 [place] [address] Registered Dietitian Dietitian, Registered 05/21/23 Marlen Esposito MD [address] [place] [address] Assigned Surgical Provider 06/21/23 10/13/23 Barbara Valdes MD 6 [facility] 2[address] [place] [address] Assigned Surgical Provider 10/14/23 documented as of this encounter
--- OUTSIDE RECORDS SUMMARY | 2024-02-29 09:38 | XMS_ITS | Encounter Summary ---
Author Organization [facility] Address [address] [place] [address]. [place] [address] Care Team Providers Care Territory Development Manager Name Role Phone Sánchez Kowalski APRN SPLICER HELPER Unavailable Marlen Esposito MD Unavailable [phone] Unavailable Unavail able Karen Steel Unavailable Marlen Esposito MD Unavailable Karen Steel Unavailable [phone] Sánchez Kowalski APRN SPLICER HELPER Unavailable Patricia Willoughby RD Unavailable Unavail able Ryan Cole MD Primary Care Provider Marlen Esposito MD Unavailable [phone] Barbara Valdes MD Unavailable [phone] Encounter Details Date Type Department Care Team (Late st Contact Info) Description 07/15/2023 [facility] Transplant Clinic [address] [place] [address] Linnea Graff, RN Social History [...] documented as of this encounter Care Teams Territory Development Manager Relationship Specialty Start Date End Date Ryan Cole MD [address] [place] [address] PCP - General 06/02/23 Sánchez Kowalski APRN SPLICER HELPER [address] [place] [address] 151945 Nurse Practitioner Nephrology 04/11/23 Marlen Esposito MD [address] [place] [address] [id number] Surgery 04/11/[address] [place] [address] Registered Dietitian Dietitian, Registered 04/11/23 Karen Steel LICSW Binding Dyer 04/11/23 Marlen Esposito MD [address] [place] [address] [phone] Surgery 05/21/23 Karen Steel LICSW Binding Dyer 05/21/23 Sánchez Kowalski APRN SPLICER HELPER 9[address] [place] [address] Nurse Practitioner Nephrology 05/21/[address] [facility] 420 [facility] 84 [place] [address] Registered Dietitian Dietitian, Registered 05/21/23 Marlen Esposito MD [address] [place] [address] Assigned Surgical Provider 06/21/23 10/13/23 Barbara Valdes MD 6 [facility] 2A [place] [address] Assigned Surgical Provider 10/14/23 documented as of this encounter
--- OUTSIDE RECORDS SUMMARY | 2024-02-29 09:38 | XMS_ITS | Referral Summary ---
Author Organization [place] Address [address] [facility] [place] [address] Care Team Providers Care Scientific Editor Name Role Phone Sánchez Kowalski APRN GOVERNMENT DOCUMENTS LIBRARIAN Unavailable Marlen Esposito MD Unavailable Patricia Willoughby RD Unavailable Unavail able Karen Steel TELEPHONE SALES REPRESENTATIVE Unavailable Marlen Esposito MD Unavailable Karen Steel TELEPHONE SALES REPRESENTATIVE Unavailable [phone] Sánchez Kowalski APRN GOVERNMENT DOCUMENTS LIBRARIAN Unavailable Patricia Willoughby RD Unavailable Unavail able Ryan Cole MD Primary Care Provider Barbara Valdes MD Unavailable [phone] Encounters Date Type Department Care Team Description 02/26/2024 - 02/27/2024 3:56 AM CDT Emergency [facility] Emergency Department [address] [place] [id number] Zarina Iniguez MD Discharge Disposition: ED Dismiss - Never Arrived from Last 3 Months Allergies Active Allergy [...] MOUTH BEFORE DENTAL APPOINTMENT 08/08/2022 Active B Ufypvfb-K-Zxxkb Acid (DAVE-DAVID RX) 1 mg TABS Take [...] HEPATITIS C ANTIBODY Routine 06/02/2023 2:36 PM ARTIFICIAL LIMB MAKER History of liver transplant (H) Hypertensive kidney [...] Lim MD LAB - BLOOD ORDERAB LES [facility] Organization Address City/State/ZIP Co de Phone Number UR LABORATORY [facility] Acute Care Lab [address] [facility], Room [address] [place] [address] * (ABNORMAL) CBC with platelets (11/18/2023 6:25 [...] LAB - BLOOD ORDERAB LES UR LABORATORY [facility] Acute Care Lab [address] [place] [address], Room [address] * Phosphorus (11/16/2023 6:40 AM CDT) Phosphorus 3.3 2.5 - 4.5 mg/dL 11/16/2023 10:02 AM CDT UR LABORATORY Blood STRUCTURE OF RIGHT UPPER LIMB / Unknown Venipuncture / Unknown 11/16/2023 6:40 AM CDT 11/16/2023 6:58 AM CDT Lorena Greene DO LAB - BLOOD ORDERABL ES UR LABORATORY [facility] Acute Care Lab [address] [place] [address], [address] * Hepatitis C antibody [[id number]] (06/02/2023 2:36 PM ARTIFICIAL LIMB MAKER) Hepatitis C Antibody Nonreactive Nonreactive 06/03/2023 8:52 AM ARTIFICIAL LIMB MAKER [facility]PROT/EN DO Blood STRUCTURE OF LEFT UPPER LIMB / Unknown Venipuncture / Unknown 06/02/2023 2:36 PM ARTIFICIAL LIMB MAKER 06/02/2023 2:37 PM ARTIFICIAL LIMB MAKER Narrative [facility] CORE/PROT/ENDO - 06/03/2023 8:52 AM ARTIFICIAL LIMB MAKER Assay performance characteristics have not been established for newborns, infants, and children. Sánchez Kowalski APRN GOVERNMENT DOCUMENTS LIBRARIAN LAB - BLOOD O RDERABLES [facility] CORE/PROT/ENDO [facility] Core/Prot/Endo [address] [facility] Unit [facility], Room [address] [phone] from Last 3 Months or Most Recently Relevant to Health Maintenance Advance Directives For more information, please contact: [phone] * Full Code (Latest Code Status on [...] continue PREVIOUSLY ORDERED code status Care Teams Scientific Editor Relationship Specialty Start Date End Date Ryan Cole MD [address] [place] [address] PCP - General 06/02/23 Sánchez Kowalski APRN GOVERNMENT DOCUMENTS LIBRARIAN [address] [place] [address] 369105 Nurse Practitioner Nephrology 04/11/23 Marlen Esposito MD [address] [place] [address] [phone] Surgery 04/11/[address] [address] Registered Dietitian Dietitian, Registered 04/11/23 Karen Steel LICSW Director Of Assessment 04/11/23 Marlen Esposito MD [address] [place] [address] [phone] Surgery 05/21/23 Karen Steel LICSW Director Of Assessment 05/21/23 Sánchez Kowalski APRN GOVERNMENT DOCUMENTS LIBRARIAN [address] [place] [address] 129885 Nurse Practitioner Nephrology 05/21/[address] [facility] 84 [place] [address] Registered Dietitian Dietitian, Registered 05/21/23 Barbara Valdes MD 516 [facility] 2A [place], [place] 857215 Assigned Surgical Provider 10/14/23
--- OUTSIDE RECORDS SUMMARY | 2024-02-29 09:38 | XMS_ITS | Encounter Summary ---
Author Organization [facility] Address [address] [place] [address]. [place] [address] Care Team Providers Care Business Representative Name Role Phone Sánchez Kowalski APRN MANAGER RISK Unavailable [phone] Marlen Esposito MD Unavailable Patricia Willoughby RD Unavailable Unavail able Karen Steel Unavailable Marlen Esposito MD Unavailable Karen Steel Unavailable [phone] Sánchez Kowalski APRN MANAGER RISK Unavailable Patricia Willoughby RD Unavailable Unavail able Ryan Cole MD Primary Care Provider Marlen Esposito MD Unavailable [phone] Barbara Valdes MD Unavailable [phone] Encounter Details Date Type Department Care Team (Late st Contact Info) Description 07/21/2023 [facility] [address] [place] [address] Linnea Graff, RN Social History [...] as of this encounter Care Teams Business Representative Relationship Specialty Start Date End Date Ryan Cole MD [address] [place] [address] PCP - General 06/02/23 Sánchez Kowalski APRN MANAGER RISK [address] [place] [address] [phone] Nurse Practitioner Nephrology 04/11/23 Marlen Esposito MD [address] [place] [address] [phone] Surgery 04/11/[address] [place] [address] Registered Dietitian Dietitian, Registered 04/11/23 Karen Steel LICSW Terminal Gauger 04/11/23 Marlen Esposito MD [address] [place] [address] 480605 Surgery 05/21/23 Karen Steel LICSW Terminal Gauger 05/21/23 Sánchez Kowalski APRN MANAGER RISK [address] [place] [address] Nurse Practitioner Nephrology 05/21/[address] [facility] 84 [place] [address] Registered Dietitian Dietitian, Registered 05/21/23 Marlen Esposito MD [address] [place] [address] Assigned Surgical Provider 06/21/23 10/13/23 Barbara Valdes MD 6 [facility] 2A [place] [address] Assigned Surgical Provider 10/14/23 documented as of this encounter
--- OUTSIDE RECORDS SUMMARY | 2024-02-29 09:38 | XMS_ITS | Encounter Summary ---
Author Organization [facility] Address [address] [place] [address] Phone Care Team Providers Care Toxics Program Officer Name Role Phone Unavailable Primary Care Provider Unavailabl e Encounter Details Date Type Department Care Team (Late st Contact Info) Description 11/11/2023 Orders Only [facility] Room [facility] Radiology Department ESTEFANI [address] [facility]. [address] [address] Provider, [place] [address] Referral of patient (Primary Dx) Social History [...]
--- OUTSIDE RECORDS SUMMARY | 2024-02-29 09:39 | XMS_ITS ---
Author Organization [facility] Address [address] [place] [address] Care Team Providers Care Head Field Hockey Coach Name Role Phone Sánchez Kowalski APRN ORCHID GROWER Unavailable [phone] Marlen Esposito MD Unavailable Patricia Willoughby RD Unavailable Unavail able Karen Steel Unavailable Marlen Esposito MD Unavailable [phone] Karen Steel Unavailable Sánchez Kowalski APRN ORCHID GROWER Unavailable [phone] Unavailable Unavail able Ryan Cole MD Primary Care Provider Barbara Valdes MD Unavailable [phone] Transitional Care Management Status:Closed (Closed) Start date:11/19/2023 Enrollment date:11/19/2023 End date:12/03/2023 Close reason:Goals met Continued Care and Services Coordination
--- OUTSIDE RECORDS SUMMARY | 2024-02-29 09:39 | XMS_ITS | Encounter Summary ---
Author Organization [facility] Address [address] [place] [address] Care Team Providers Care Cell Changer Name Role Phone Sánchez Kowalski APRN SPECIAL CLIENT BUS DRIVER Unavailable Marlen Esposito MD Unavailable Patricia Willoughby RD Unavailable Unavail able Karen Steel Unavailable Marlen Esposito MD Unavailable [phone] Karen Steel Unavailable Sánchez Kowalski APRN SPECIAL CLIENT BUS DRIVER Unavailable Patricia Willoughby RD Unavailable Unavail able Ryan Cole MD Primary Care Provider [phone] Marlen Esposito MD Unavailable Barbara Valdes MD Unavailable [phone] Encounter Details Date Type Department Care Team (Late st Contact Info) Description 06/05/2023 [facility] [address] [place] [address] Marlen Esposito MD [address] [place] [address] Social History Tobacco Use Types Packs/Day [...] as of this encounter Care Teams Cell Changer Relationship Specialty Start Date End Date Ryan Cole MD [address] [place] [address] PCP - General 06/02/23 Sánchez Kowalski APRN SPECIAL CLIENT BUS DRIVER [address] [place] [address] [phone] Nurse Practitioner Nephrology 04/11/23 Marlen Esposito MD [address] [place] [address] [id number] Surgery 04/11/[address] [place] [address] Registered Dietitian Dietitian, Registered 04/11/23 Karen tSeel LICSW Enamel Cracker 04/11/23 Marlen Esposito MD [address] [place] [address] [phone] Surgery 05/21/23 Karen Steel LICSW Enamel Cracker 05/21/23 Sánchez Kowalski APRN SPECIAL CLIENT BUS DRIVER [address] [place] [address] Nurse Practitioner Nephrology 05/21/[address] [facility] 420 [facility] 84 [place] [address] Registered Dietitian Dietitian, Registered 05/21/23 Marlen Esposito MD [address] [place] [address] [id number] Assigned Surgical Provider 06/21/23 10/13/23 Barbara Valdes MD 6 [facility] [address] [place], [place] 780475 Assigned Surgical Provider 10/14/23 documented as of this encounter
--- OUTSIDE RECORDS SUMMARY | 2024-02-29 09:39 | XMS_ITS | Encounter Summary ---
Author Organization [facility] Address [address] [place] [address] Care Team Providers Care Sound Cutter Name Role Phone Sánchez Kowalski APRN SPRINKLER FITTER HELPER Unavailable Marlen Esposito MD Unavailable [phone] Unavailable Unavail able Karen Steel Unavailable Marlen Esposito MD Unavailable Karen Steel Unavailable Sánchez Kowalski APRN SPRINKLER FITTER HELPER Unavailable Patricia Willoughby RD Unavailable Unavail able Ryan Cole MD Primary Care Provider Marlen Esposito MD Unavailable Barbara Valdes MD Unavailable [phone] Encounter Details Date Type Department Care Team (Late st Contact Info) Description 06/06/2023 [facility] [address] [place] [address] Sánchez Kowalski APRN SPRINKLER FITTER HELPER [address] [place] [address] Social History Tobacco Use Types [...] documented as of this encounter Care Teams Sound Cutter Relationship Specialty Start Date End Date Ryan Cole MD [address] [place] [address] PCP - General 06/02/23 Sánchez Kowalski, GLASS BLOWING INSTRUCTOR SPRINKLER FITTER HELPER [address] [place] [address] 483835 Nurse Practitioner Nephrology 04/11/23 Marlen Esposito MD [address] [place] [address] [phone] Surgery 04/11/[address] [place] [address] Registered Dietitian Dietitian, Registered 04/11/23 Karen Steel LICSW Business Liaison Manager 04/11/23 Marlen Esposito MD [address] [place] [address] [phone] Surgery 05/21/23 Karen Steel LICSW Business Liaison Manager 05/21/23 Sánchez Kowalski APRN SPRINKLER FITTER HELPER [address] [place] [address] Nurse Practitioner Nephrology 05/21/[address] [place] [address] Registered Dietitian Dietitian, Registered 05/21/23 Marlen Esposito MD [address] [place] [address] [phone] Assigned Surgical Provider 06/21/23 10/13/23 Barbara Valdes MD 6 [facility] [address] [place], [place] 691125 Assigned Surgical Provider 10/14/23 documented as of this encounter
--- OUTSIDE RECORDS SUMMARY | 2024-02-29 09:39 | XMS_ITS | Encounter Summary ---
Author Organization [place] Address [address] [place] [address]. [place] [address] Care Team Providers Care Dehydrator Name Role Phone Sánchez Kowalski APRN MARINE ENGINE MACHINIST APPRENTICE Unavailable Marlen Esposito MD Unavailable [phone] Unavailable Unavail able Karen Steel Unavailable [phone] Marlen Esposito MD Unavailable [phone] Karen Steel Unavailable [phone] Sánchez Kowalski APRN MARINE ENGINE MACHINIST APPRENTICE Unavailable Patricia Willoughby RD Unavailable Unavail able Ryan Cole MD Primary Care Provider [phone] Marlen Esposito MD Unavailable [phone] Barbara Valdes MD Unavailable [phone] Encounter Details Date Type Department Care Team (Late st Contact Info) Description 06/18/2023 Orders Only [facility] [address] [place] [address] Outside, Provider Social History Tobacco Use Types [...] Comments HLA RESULT REPORT 06/18/2023 1:05 PM EMC STORAGE ARCHITECT HLA RESULT REPORT 06/18/2023 1:05 PM EMC STORAGE ARCHITECT documented in this encounter Results * HLA RESULT REPORT (06/18/2023 1:05 PM EMC STORAGE ARCHITECT) Provider Outside LAB - IMMUNOLOGY ORD ERABLES * HLA RESULT REPORT (06/18/2023 1:05 PM EMC STORAGE ARCHITECT) Provider Outside LAB - IMMUNOLOGY ORD ERABLES documented in this encounter Visit Diagnoses Not on filedocumented in this encounter Additional Health Concerns Infection Onset Date Last Indicated Resolved Time Rule Out C-difficile 11/15/2023 11/15/2023 024 6:15 PM CDT documented as of this encounter Care Teams Dehydrator Relationship Specialty Start Date End Date Ryan Cole MD [address] [place] [address] PCP - General 06/02/23 Sánchez Kowalski APRN MARINE ENGINE MACHINIST APPRENTICE [address] [place] [address] 266885 Nurse Practitioner Nephrology 04/11/23 Marlen Esposito MD [address] [place] [address] [phone] Surgery 04/11/[address] [place] [address] Registered Dietitian Dietitian, Registered 04/11/23 Karen Steel LICSW Hot Header Operator 04/11/23 Marlen Esposito MD [address] [place] [address] Surgery 05/21/23 Karen Steel LICSW Hot Header Operator 05/21/23 Sánchez Kowalski APRN [facility] [address] [place] [address] 511[address] Nurse Practitioner Nephrology 05/21/[address] [facility] 420 [facility] 84 [place] [address] Registered Dietitian Dietitian, Registered 05/21/23 Marlen Esposito MD [address] [place] [address] Assigned Surgical Provider 06/21/23 10/13/23 Barbara Valdes MD 6 [facility] 2A [place] [address] Assigned Surgical Provider 10/14/23 documented as of this encounter
--- OUTSIDE RECORDS SUMMARY | 2024-02-29 09:39 | XMS_ITS | Encounter Summary ---
Author Organization [facility] Address [address] [place] [address]. [place] [address] Care Team Providers Care Senior Boiler Operator Name Role Phone Sánchez Kowalski APRN FREEZER MACHINE OPERATOR Unavailable Marlen Esposito MD Unavailable Patricia Willoughby RD Unavailable Unavail able Karen Steel Unavailable Marlen Esposito MD Unavailable [phone] Karen Steel Unavailable Sánchez Kowalski APRN FREEZER MACHINE OPERATOR Unavailable Patricia Willoughby RD Unavailable Unavail able Ryan Cole MD Primary Care Provider Marlen Esposito MD Unavailable [phone] Barbara Valdes MD Unavailable [phone] Encounter Details Date Type Department Care Team (Late st Contact Info) Description 06/13/2023 Documentation Only [facility] [address] [place] [address] Scan, Non-Provider Social History Tobacco [...] as of this encounter Care Teams Senior Boiler Operator Relationship Specialty Start Date End Date Ryan Cole MD [address] [place] [address] PCP - General 06/02/23 Sánchez Kowalski APRN FREEZER MACHINE OPERATOR [address] [place] [address] 850075 Nurse Practitioner Nephrology 04/11/23 Marlen Esposito MD [address] [place] [address] [phone] Surgery 04/11/[address] [address] Registered Dietitian Dietitian, Registered 04/11/23 Karen Steel LICSW Research Coordinator 04/11/23 Marlen Esposito MD [address] [place] [address] [phone] Surgery 05/21/23 Karen Steel LICSW Research Coordinator 05/21/23 Sánchez Kowalski APRN FREEZER MACHINE OPERATOR [address] [place] [address] [place] [address] Nurse Practitioner Nephrology 05/21/[address] [facility] 420 [facility] 84 [place] [address] Registered Dietitian Dietitian, Registered 05/21/23 Marlen Esposito MD [address] [place] [address] Assigned Surgical Provider 06/21/23 10/13/23 Barbara Valdes MD [address] [facility] 2A [place] [address] Assigned Surgical Provider 10/14/23 documented as of this encounter
--- OUTSIDE RECORDS SUMMARY | 2024-02-29 09:39 | XMS_ITS | Encounter Summary ---
Author Organization [facility] Address [address] [place] [address]. [place] [address] Care Team Providers Care Sorting Grapple Operator Name Role Phone Sánchez Kowalski APRN POWERHOUSE MECHANIC SUPERVISOR Unavailable Marlen Esposito MD Unavailable Patricia Willoughby RD Unavailable Unavail able Karen Steel Unavailable Marlen Esposito MD Unavailable [phone] Karen Steel Unavailable [phone] Sánchez Kowalski APRN POWERHOUSE MECHANIC SUPERVISOR Unavailable Patricia Willoughby RD Unavailable Unavail able Ryan Cole MD Primary Care Provider Marlen Esposito MD Unavailable [phone] Barbara Valdes MD Unavailable [phone] Encounter Details Date Type Department Care Team (Late st Contact Info) Description 06/05/[address] [facility] [address] [place] [address] Outside, Provider Social History Tobacco Use Types [...] Comments HLA RESULT REPORT 06/05/2023 2:18 PM RECORD LABEL INTERNSHIP HLA RESULT REPORT 06/05/2023 2:18 PM RECORD LABEL INTERNSHIP documented in this encounter Results * HLA RESULT REPORT (06/05/2023 2:18 PM RECORD LABEL INTERNSHIP) Provider Outside LAB - IMMUNOLOGY ORD ERABLES * HLA RESULT REPORT (06/05/2023 2:18 PM RECORD LABEL INTERNSHIP) Provider Outside LAB - IMMUNOLOGY ORD ERABLES documented in this encounter Visit Diagnoses Not on filedocumented in this encounter Additional Health Concerns Infection Onset Date Last Indicated Resolved Time Rule Out C-difficile 11/15/2023 11/15/2023 024 6:15 PM CDT documented as of this encounter Care Teams Sorting Grapple Operator Relationship Specialty Start Date End Date Ryan Cole MD [address] [place] [address] PCP - General 06/02/23 Sánchez Kowalski APRN POWERHOUSE MECHANIC SUPERVISOR [address] [place] [address] 525175 Nurse Practitioner Nephrology 04/11/23 Marlen Esposito MD [address] [place] [address] [phone] Surgery 04/11/[address] [place] [address] Registered Dietitian Dietitian, Registered 04/11/23 Karen Steel LICSW Cap Jewel Plate Assembler 04/11/23 Marlen Esposito MD [address] [place] [address] Surgery 05/21/23 Karen Steel LICSW Cap Jewel Plate Assembler 05/21/23 Sánchez Kowalski APRN [facility] [address] [place] [address] Nurse Practitioner Nephrology 05/21/[address] [facility] 420 [facility] 84 [place] [address] Registered Dietitian Dietitian, Registered 05/21/23 Marlen Esposito MD [address] [place] [address] Assigned Surgical Provider 06/21/23 10/13/23 Barbara Valdes MD 6 [facility] 2A [place] [address] Assigned Surgical Provider 10/14/23 documented as of this encounter
--- OUTSIDE RECORDS SUMMARY | 2024-02-29 09:39 | XMS_ITS | Clinical Summary ---
Author Organization [employer] 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 This will not affect patient care or billing. This comment can be deleted. Other abnormal glucose 07/28/200712/26 Overview (07/28/2007): prediabetes, 2007 Unspecified disorder of liver 09/09/2006 11/27/2012 Encounters Date Type Department Care Team Description 02/26/2024 11:59 PM CDT Hospital Encounter [address] [address] [facility], [facility] Hospitalist Svc 02/26/2024 Orders Only [facility] Scanner 1 scan: (1-Ord) LIV, CT HIP RT WO CON, 02/26/2024 02/26/2024 Orders Only [facility] Scanner 1 scan: (1-Ord) EDVIN HIP RT MIN 2VW, 02/26/2024 01/26/2024 10:45 AM CDT [facility] [address] [facility] [address] Ryan Cole MD Hand Pain/problem (Lump on right hand in 2 different spots/Been there for a couple of months/A little painful /No injury) 01/26/2024 Travel 01/13/2024 Medical Messaging [facility] [address] [facility] [address] Ryan Cole MD physical Therapy from Last [...] Years) 05/11/2003 Tdap 02/19/2012 Tuberculin (PPD) 01/07/2023,12/12/2022, 2 Tuberculin Skin Test, Unspecified 07/09/2021,03/2022,05/29/2021 Zoster (Shingrix-RZV, [...] Respiratory Rate 24 05/24/2021 11:0 2 AM MANAGER BANQUET Oxygen Saturation 100% 01/26/2024 10: 48 AM CDT Inhaled Oxygen Concentration - - Weight 76.6 kg (168 lb 14.4 oz) 024 10:48 AM CDT Height 175.3 cm (5' 9) 11/25/2023 9:05 AM CDT Body Mass Index 24.94 11/25/2023 9:05 AM CDT Plan of Treatment Health Maintenance Due Date Last Done Comments Tetanus booster 02/18/2022 02/19/2012, 04/23, 05/11/2003 COVID-19 vaccine series ( season) 2024 12/23/2023, 05/13/2023, 01/21/2022, Additional [...] Priority Date/Time Associated Diagnosis Comments SCAN-CT INTERPRETATION 12:00 AM CDT SCAN-RADIOLOGY REPORT 02/26/2024 12:00 AM CDT TSH Routine 01/26/2024 11:32 AM CDT Hypothyroidism (acquired) LIPID PANEL Routine 11/25/2023 9:58 AM CDT Mixed hyperlipidemia OCCULT BLOOD IFOBT STOOL Routine 05/01/2021 11:40 AM MANAGER BANQUET Screening for colorectal cancer ANTI HCV Add On 04/26/2021 10:01 AM CDT Need for hepatitis C screening test from Last 3 Months or Most Recently Relevant to Health Maintenance Results * SCAN-RADIOLOGY REPORT (02/26/2024 12:00 AM CDT) Anatomical Region Laterality Modality Other Scanner OTHER * SCAN-CT INTERPRETATION (02/26/2024 12:00 AM CDT) Anatomical Region Laterality Modality Other Scanner OTHER * TSH (01/26/2024 11:32 AM CDT) TSH 4.10 0.27 - 4.20 uIU/mL 01/27/2024 6:01 AM CDT [facility] Blood BLOOD SPECIMEN / Unknown Venipuncture / Unknown 01/26/2024 11:32 AM CDT 01/26/2024 11:34 AM CDT Narrative [facility] - 01/27/2024 6:01 AM CDT In Adults, TSH values between 5.00 and 10.00 uIU/ml do not necessarily indicate the presence of Hypothyroidism. Correlation with clinical findings such as presence of goiter and/or Thyroperoxidase (TPO) Antibody may be helpful. For more information please refer to SEAN 2004; 291: 228-238. Ryan Cole MD CHEMISTRY [facility] [address] [place] [address], * (ABNORMAL) LIPID PANEL (11/25/2023 9:58 AM CDT) CHOLESTEROL,TOTAL 209(H) 100 - 199 mg/dL 11/25/2023 6:47 PM CDT [facility] Comment: Cholesterol, Total Reference Ranges Desirable <200 mg/dL Borderline 200-239 mg/dL High >=240 mg/dL TRIGLYCERIDES 216(H) <150 mg/dL 11/25/2023 6:47 PM CDT [facility] HDL CHOLESTEROL 52 >40 mg/dL 6:47 PM CDT [facility] NON-HDL CHOLESTEROL 157(H) <145 mg/dl 11/25/2023 6:47 PM CDT [facility] CHOL/HDL RATIO 4.02 <4.50 11/25/2023 6:47 PM CDT [facility] LDL CHOLESTEROL 114 <=130 mg/dL 11/25/2023 6:47 PM CDT [facility] VLDL CHOLESTEROL 43(H) <=30 mg/dL 11/25/2023 6:47 PM CDT [facility] PROVIDER ORDERED STATUS RANDOM 11/25/2023 6:47 PM CDT [facility] Blood BLOOD SPECIMEN / Unknown Venipuncture / Unknown 11/25/2023 9:58 AM CDT 11/25/2023 9:59 AM CDT Ryan Cole MD CHEMISTRY [facility] [address] [place] [address], * (ABNORMAL) OCCULT BLOOD IFOBT STOOL (05/01/2021 11:40 AM MANAGER BANQUET) STOOL BLOOD ,IFOBT Positive(A ) Negative 05/11/2021 2:47 PM MANAGER BANQUET [facility] Stool STOOL SPECIMEN / Unknown Non-Blood / Unknown 05/01/2021 11:40 AM MANAGER BANQUET 05/09/2021 11:40 AM MANAGER BANQUET Ryan Cole MD LABORATORY [facility] [address] [place] [address], * ANTI HCV (04/26/2021 10:01 AM CDT) HEPATITIS C ANTIBODY Non-React davin Non-React davin 04/26/2021 6:19 PM CDT [facility] Comment:Antibodies to HCV no t detected; does not exclude the possibility of exposure to HCV. Blood BLOOD SPECIMEN / Unknown Venipuncture / Unknown 04/26/2021 10:01 AM CDT 04/26/2021 10:01 AM CDT Ryan Cole MD SEND OUTS [facility] [address] [place] [address], [place] from Last 3 Months or Most Recently Relevant to Health Maintenance Advance Directives Documents on File Type Date Recorded Patient Splitting Machine Feeder Expl anation Healthcare Directive 11/28/2023 024 * Full Code (Latest Code Status on File) Date Activated Date Inactivated Comments 04/30/2021 5:43 AM 04/30/2021 10:06 AM Question Answer Comments Code Status Discussion: Reviewed Preferences Care Teams Industrial Truck Driver Relationship Specialty Start Date End Date Ryan Cole MD [address] [place] [address] PCP - General Family Practice 07/11/14
--- OUTSIDE RECORDS SUMMARY | 2024-02-29 09:39 | XMS_ITS | Encounter Summary ---
Author Organization [place] Address [address] [place] [address]. [place] [address] Care Team Providers Care Expanding Machine Operator Name Role Phone Sánchez Kowalski APRN HUMAN RESOURCES SPECIALIST Unavailable [phone] Marlen Esposito MD Unavailable [phone] Unavailable Unavail able Karen Steel Unavailable Marlen Esposito MD Unavailable [phone] Karen Steel Unavailable [phone] Sánchez Kowalski APRN HUMAN RESOURCES SPECIALIST Unavailable [phone] Unavailable Unavail able System, Provider Not In Primary Care Provider Un available Ryan Cole MD Primary Care Provider [phone] Marlen Esposito MD Unavailable [phone] Barbara Valdes MD Unavailable [phone] Encounter Details Date Type Department Care Team (Late st Contact Info) Description 04/11/2023 [facility] [address] [place] [address] Linnea Graff, RN Social History Tobacco [...] documented as of this encounter Care Teams Expanding Machine Operator Relationship Specialty Start Date End Date System, Provider Not In PCP - General Clinic 05/21/23 05/21/23 Ryan Cole MD [address] [place] [address] PCP - General 06/02/23 Sánchez Kowalski APRN HUMAN RESOURCES SPECIALIST [address] [place] [address] Nurse Practitioner Nephrology 04/11/23 Marlen Esposito MD [address] [place] [address] Surgery 04/11/[address] [address] Registered Dietitian Dietitian, Registered 04/11/23 Karen Steel FISH EGG PACKER Special Education Associate 04/11/23 Marlen Esposito MD [address] [place] [address] 158[address] Surgery 05/21/23 Karen Steel LICSW Special Education Associate 05/21/23 Sánchez Kowalski APRN HUMAN RESOURCES SPECIALIST [address] [place] [address] [phone] Nurse Practitioner Nephrology 05/21/[address] [facility] 420 [facility] 84 [place] [address] Registered Dietitian Dietitian, Registered 05/21/23 Marlen Esposito MD [address] [place] [address] 417205 Assigned Surgical Provider 06/21/23 10/13/23 Barbara Valdes MD 6 [facility] 2[address] [place], [place] 2665[address] Assigned Surgical Provider 10/14/23 documented as of this encounter
--- OUTSIDE RECORDS SUMMARY | 2024-02-29 09:39 | XMS_ITS | Encounter Summary ---
Author Organization [facility] Address [address] [place] [address]. [place] [address] Care Team Providers Care Stud Driver Name Role Phone Sánchez Kowalski APRN CONSERVATOR ARTIFACTS Unavailable Marlen Esposito MD Unavailable Patricia Willoughby RD Unavailable Unavail able Karen Steel Unavailable [phone] Marlen Esposito MD Unavailable Karne Steel Unavailable [phone] Sánchez Kowalski APRN CONSERVATOR ARTIFACTS Unavailable Patricia Willoughby RD Unavailable Unavail able Ryan Cole MD Primary Care Provider Marlen Esposito MD Unavailable [phone] Barbara Valdes MD Unavailable [phone] Encounter Details Date Type Department Care Team (Late st Contact Info) Description 06/13/[address] [facility] [address] [place] [address] Scan, Non-Provider Social History Tobacco [...] documented as of this encounter Care Teams Stud Driver Relationship Specialty Start Date End Date Ryan Cole MD [address] [place] [address] PCP - General 06/02/23 Sánchez Kowalski APRN CONSERVATOR ARTIFACTS [address] [place] [address] [id number] Nurse Practitioner Nephrology 04/11/23 Marlen Esposito MD [address] [place] [address] [phone] Surgery 04/11/[address] [address] Registered Dietitian Dietitian, Registered 04/11/23 Karen Steel LICSW Sales Associate Fishing 04/11/23 Marlen Esposito MD [address] [place] [address] [phone] Surgery 05/21/23 Karen Steel LICSW Sales Associate Fishing 05/21/23 Snáchez Kowalski APRN CONSERVATOR ARTIFACTS [address] [place] [address] [place] [address] Nurse Practitioner Nephrology 05/21/[address] [facility] 420 [facility] 84 [place] [address] Registered Dietitian Dietitian, Registered 05/21/23 Marlen Esposito MD [address] [place] [address] Assigned Surgical Provider 06/21/23 10/13/23 Barbara Valdes MD 516 [facility] 2A [place] [address] Assigned Surgical Provider 10/14/23 documented as of this encounter
== END 2024-02-27 00:31 | disposition home or self-care (01) ==
LOC: AMB 02-29 09:36
PROVIDERS: PCP Surgery; Visit Provider Internal Medicine
DX: S72.001A Fracture of unspecified part of neck of right femur, initial encounter for closed fracture (principal)
CPT/HCPCS: A0425; A0429

== ENCOUNTER 2024-04-13 09:00 | Outpatient (RCR) | payer MEDICARE, BC, SELFPAY | END 2024-06-08 13:01 | disposition home or self-care (01) | PROVIDERS: PCP Surgery; Visit Provider Surgery | DX: R26.89 Other abnormalities of gait and mobility (principal); Z51.89 Encounter for other specified aftercare | CPT/HCPCS: 97110; 97161 ==

== ENCOUNTER 2024-10-11 14:34 | Emergency (ER) | payer MEDICARE, BC, SELFPAY ==
[2024-10-11] VITALS (13 sets, daily range): BP systolic 149–151; BP diastolic 71–78; PULSE 66–88; RESP 16–26; TEMP 37.7–37.8; O2SAT 16–100; BMI 22.8
--- OUTSIDE RECORDS SUMMARY | 2024-10-11 14:36 | XMS_ITS | Encounter Summary ---
Author Organization [facility] Address [address] [place] [address]. [place] [address] Care Team Providers Care Boulevard Glassware Replacer Name Role Phone Sánchez Kowalski APRN ABSTRACT WRITER Unavailable Marlen Esposito MD Unavailable [phone] Unavailable Unavail able Karen Steel Unavailable Marlen Esposito MD Unavailable Karen Steel Unavailable Sánchez Kowalski APRN ABSTRACT WRITER Unavailable Patricia Willoughby RD Unavailable Unavail able Ryan Cole MD Primary Care Provider Marlen Esposito MD Unavailable [phone] Barbara Valdes MD Unavailable [phone] Encounter Details Date Type Department Care Team (Late st Contact Info) Description 09/01/2023 [facility] [place] [facility] [address] [place] [address] Linnea Graff, RN Social History [...] Assigned at Male 03/27/2023 11:48 AM CDT 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 Gender Identity Male 03/27/2023 11:48 AM CDT Sexual Orientation Not on file documented as of this encounter Plan of Treatment Not on file documented as of this encounter Visit Diagnoses Not on filedocumented in this encounter Additional Health Concerns Infection Onset Date Last Indicated Resolved Time Rule Out C-difficile 11/15/2023 11/15/2023 024 6:15 PM CDT documented as of this encounter Care Teams Boulevard Glassware Replacer Relationship Specialty Start Date End Date Ryan Cole MD [address] [place] [address] PCP - General 06/02/23 Sánchez Kowalski, RAMONA ABSTRACT WRITER [address] [place] [address] 988115 Nurse Practitioner Nephrology 04/11/23 Marlen Esposito MD [address] [place] [address] [phone] Surgery 04/11/[address] [place] [address] Registered Dietitian Dietitian, Registered 04/11/23 Karen Steel UNDERWATER ROBOTICIST Per Diem Registered Nurse 04/11/23 Marlen Esposito MD [address] [place] [address] [phone] Surgery 05/21/23 Karen Steel LICSW Per Diem Registered Nurse 05/21/23 Sánchez Kowalski APRN ABSTRACT WRITER 9 [place], [place] 077765 Nurse Practitioner Nephrology 05/21/[address] [facility] 420 [facility] 84 [place] [address] Registered Dietitian Dietitian, Registered 05/21/23 Marlen Esposito MD [address] [place] [address] Assigned Surgical Provider 06/21/23 10/13/23 Barbara Valdes MD 6 [facility] 2[address] [place] [address] Assigned Surgical Provider 10/14/23 documented as of this encounter
--- OUTSIDE RECORDS SUMMARY | 2024-10-11 14:36 | XMS_ITS | Encounter Summary ---
Author Organization [facility] Address [address] [place] [address]. [place] [address] Care Team Providers Care Gizzard Peeler Name Role Phone Sánchez Kowalski APRN AERIAL PLANTING AND CULTIVATION MANAGER Unavailable Marlen Esposito MD Unavailable [phone] Unavailable Unavail able Karen Steel Unavailable Marlen Esposito MD Unavailable [phone] Karen Steel Unavailable [phone] Sánchez Kowalski APRN AERIAL PLANTING AND CULTIVATION MANAGER Unavailable [phone] Unavailable Unavail able Ryan Cole MD Primary Care Provider Marlen Esposito MD Unavailable [phone] Barbara Valdes MD Unavailable [phone] Encounter Details Date Type Department Care Team (Late st Contact Info) Description 09/10/2023 [facility] Trans[facility] Clinic [address] [place] [address] Linnea Graff, RN Social History [...] AM CDT 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 Gender Identity Male 03/27/2023 11:48 AM CDT Sexual Orientation Not on file documented as of this encounter Plan of Treatment Not on file documented as of this encounter Visit Diagnoses Not on filedocumented in this encounter Additional Health Concerns Infection Onset Date Last Indicated Resolved Time Rule Out C-difficile 11/15/2023 11/15/2023 024 6:15 PM CDT documented as of this encounter Care Teams Gizzard Peeler Relationship Specialty Start Date End Date Ryan Cole MD [address] [place] [address] PCP - General 06/02/23 Sánchez Kowalski, RAMONA AERIAL PLANTING AND CULTIVATION MANAGER [address] [place] [address] 512585 Nurse Practitioner Nephrology 04/11/23 Marlen Esposito MD [address] [place] [address] [phone] Surgery 04/11/[address] [place] [address] Registered Dietitian Dietitian, Registered 04/11/23 Karen Steel DRYER FEEDER Branch Associate Teller 04/11/23 Marlen Esposito MD [address] [place] [address] [phone] Surgery 05/21/23 Karen Steel LICSW Branch Associate Teller 05/21/23 Sánchez Kowalski APRN AERIAL PLANTING AND CULTIVATION MANAGER 9 [place], [place] 744895 Nurse Practitioner Nephrology 05/21/[address] [facility] 420 [facility] 84 [place] [address] Registered Dietitian Dietitian, Registered 05/21/23 Marlen Esposito MD [address] [place] [address] Assigned Surgical Provider 06/21/23 10/13/23 Barbara Valdes MD 6 [facility] 2A [place] [address] Assigned Surgical Provider 10/14/23 documented as of this encounter
--- OUTSIDE RECORDS SUMMARY | 2024-10-11 14:37 | XMS_ITS | Encounter Summary ---
Author Organization [facility] Address [address] [place] [address]. [place] [address] Care Team Providers Care It Integration Architect Name Role Phone Sánchez Kowalski APRN SERVICE TECHNICIAN Unavailable Marlen Esposito MD Unavailable [phone] Unavailable Unavail able Karen Steel Unavailable Marlen Esposito MD Unavailable Karen Steel Unavailable Sánchez Kowalski APRN SERVICE TECHNICIAN Unavailable Patricia Willoughby RD Unavailable Unavail able Ryan Cole MD Primary Care Provider Marlen Esposito MD Unavailable [phone] Barbara Valdes MD Unavailable [phone] Encounter Details Date Type Department Care Team (Late st Contact Info) Description 07/21/2023 [facility] [address] [place] [address] Linnea Graff, RN Social History [...] AM CDT 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 Gender Identity Male 03/27/2023 11:48 AM CDT Sexual Orientation Not on file documented as of this encounter Plan of Treatment Not on file documented as of this encounter Visit Diagnoses Not on filedocumented in this encounter Additional Health Concerns Infection Onset Date Last Indicated Resolved Time Rule Out C-difficile 11/15/2023 11/15/2023 024 6:15 PM CDT documented as of this encounter Care Teams It Integration Architect Relationship Specialty Start Date End Date Ryan Cole MD [address] [place] [address] PCP - General 06/02/23 Sánchez Kowalski, RAMONA SERVICE TECHNICIAN [address] [place] [address] 196045 Nurse Practitioner Nephrology 04/11/23 Marlen Esposito MD [address] [place] [address] [phone] Surgery 04/11/[address] [place] [address] Registered Dietitian Dietitian, Registered 04/11/23 Karen Steel TEAM ASSEMBLY LINE MACHINE OPERATOR Boot And Saddle Repair Person 04/11/23 Marlen Esposito MD [address] [place] [address] [phone] Surgery 05/21/23 Karen Steel LICSW Boot And Saddle Repair Person 05/21/23 Sánchez Kowalski APRN SERVICE TECHNICIAN 9 [place], [place] 031825 Nurse Practitioner Nephrology 05/21/[address] [facility] 420 [facility] 84 [place] [address] Registered Dietitian Dietitian, Registered 05/21/23 Marlen Esposito MD [address] [place] [address] Assigned Surgical Provider 06/21/23 10/13/23 Barbara Valdes MD 6 [facility] 2A [place] [address] Assigned Surgical Provider 10/14/23 documented as of this encounter
--- OUTSIDE RECORDS SUMMARY | 2024-10-11 14:37 | XMS_ITS | Clinical Summary ---
Author Organization [facility] Address [address] [place] [address] Care Team Providers Care Blood Bank Technologist Name Role Phone Sánchez Kowalski APRN FORM SETTER HELPER Unavailable Marlen Esposito MD Unavailable Patricia Willoughby RD Unavailable Unavail able Karen Steel SECURITY MESSENGER Unavailable Marlen Esposito MD Unavailable Karen Steel SECURITY MESSENGER Unavailable [phone] Sánchez Kowalski APRN FORM SETTER HELPER Unavailable Patricia Willoughby RD Unavailable Unavail able Ryan Cole MD Primary Care Provider Barbara Valdes MD Unavailable [phone] Allergies Active Allergy Reactions Criticality Noted [...] Liver transplant Muscle pain and swelling Medications amoxicillin (AMOXIL) 500 MG capsule TAKE 4 CAPSULES BY MOUTH BEFORE DENTAL APPOINTMENT 3 Active B Epfdsqx-C-Zwgmh Acid (DAVE-DAVID RX) 1 mg TABS Take 1 tablet by mouth daily (with dinner) 2 Active co-enzyme Q-10 100 MG CAPS capsule Take 100 mg by mouth daily Active ipratropium (ATROVENT) 0.03 % nasal spray INHALE 2 SPRAYS IN EACH NOSTRIL TWICE DAILY, UP TO FIVE TIMES DAILY NEEDED 3 Active lamoTRIgine (LAMICTAL) 200 MG tablet Take 200 mg by mouth 2 times daily Active levothyroxine (SYNTHROID/LEVO THROID) 75 MCG tablet Take 75 mcg by mouth daily 3 Active loratadine (CLARITIN) 10 MG tablet Take 10 mg by mouth at bedtime 3 Active montelukast (SINGULAIR) 10 MG tablet Take 1 tablet by mouth at bedtime 3 Active sodium chloride inhalant 7 % NEBU neb solution USE AFTER NEBULIZATION WITH DUONEB IN THE MORNING AND AT NIGHT Active atorvastatin (LIPITOR) 10 MG tablet Take 10 mg by mouth at bedtime Active predniSONE (DELTASONE) 5 MG tablet Take 5 mg by mouth daily Active everolimus (ZORTRESS) 0.5 MG tablet Take 1 mg by mouth 2 times daily Active NIFEdipine ER OSMOTIC (PROCARDIA XL) 30 MG 24 hr tablet Take 90 mg by mouth daily Active azaTHIOprine (IMURAN) 50 MG tabletIndicatio ns:History of liver transplant (H) Take 1 tablet (50 mg) by mouth 2 times daily 4 Active Active Problems Problem Noted Date Diagnosed Date Pneumonia 11/11/2023 Acute pericardial effusion 03/24/2023 ESRD (end stage renal disease) on dialysis 01/23 Hypertensive kidney disease, stage V 11/20/2010 Essential hypertension 07/10/2007 History of liver transplant 07/16/2004 Overview (03/25/2023): & 2012 On chronic immune suppression Family [...] AM CDT 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 Gender Identity Male 03/27/2023 11:48 AM CDT Sexual Orientation Not on file Last Filed Vital Signs Vital Sign Reading Time Taken Comments Blood Pressure 131/74 11/18/2023 8:03 AM CDT Pulse 80 11/18/2023 8:03 AM CDT Temperature 36.3 C (97.4 F) 11/18/2023 8:03 AM CDT Respiratory Rate 16 11/18/2023 8:03 AM CDT [...] Additional history exists RSV VACCINE (1 - Risk 60-74 years 1-dose series) 2014 FALL RISK ASSESSMENT 09/14/2019 FIT 05/01/2022 05/01/2021 BMP 02/18/2024 11/18/2023, 10/22, 11/16/2023, Additional history exists COVID-19 Vaccine ( season) 2024 12/23/2023, 05/13/2023, 01/21/2022, Additional history exists INFLUENZA VACCINE (#1) 2024 , 04/08/2022, 04/08/2022, Additional history exists HEMOGLOBIN 05/20/2024 11/18/2023, 10/22, 11/16/2023, Additional history exists PHQ-2 (once per calendar year) 2024 MEDICARE ANNUAL WELLNESS VISIT 11/24/2024 11/25/2023 DIABETES SCREENING 11/17/2026 11/18/2023, 0 11/17/2023, 11/16/2023, Additional history exists COLONOSCOPY 07/10/2031 07/10/2021, 06/22/2012 COLORECTAL CANCER SCREENING 07/10/2031 DTAP/TDAP/TD IMMUNIZATION (4 - Td or Tdap) 12/22/2033 12/23/2023, 02/19/2012, 05/11/2003, Additional history exists ZOSTER IMMUNIZATION Completed 01/06/2018, 8 Pneumococcal Vaccine: 50+ Years Completed 05/06/2023, 06/23/2014, 06/23/2014, Additional history exists PHOSPHORUS Completed 11/16/2023, 11/13/2023 ALK PHOS Completed 11/18/2023, 10/22, 11/16/2023, Additional history exists HEPATITIS C SCREENING Completed 12/23/2023 , 12/23/2023, 09/15/2023, Additional history exists MENINGITIS IMMUNIZATION Aged Out [...] HEPATITIS C ANTIBODY Routine 06/02/2023 2:36 PM PRINCIPAL ELECTRICAL ENGINEER History of liver transplant (H) Hypertensive kidney [...] 6:25 AM CDT 11/18/2023 7:06 AM CDT us Martha Lim MD LAB - BLOOD ORDERABLES Nelly verdin Result UR LABORATORY [facility] [address] [facility], [address] [place] [address], [facility] * (ABNORMAL) CBC with platelets (11/18/2023 [...] CDT Martha Lim MD LAB - BLOOD ORDERABLES Nelly l Result UR LABORATORY [facility], [address] [place] [address] * Phosphorus (11/16/2023 6:40 AM CDT) Phosphorus 3.3 2.5 - 4.5 mg/dL 11/16/2023 10:02 AM CDT UR LABORATORY Blood STRUCTURE OF RIGHT UPPER LIMB / Unknown Venipuncture / Unknown 11/16/2023 6:40 AM CDT 11/16/2023 6:58 AM CDT Lorena Birkelo DO LAB - BLOOD ORDERABLES Final Result UR LABORATORY [facility] [place] [facility] [address] [facility], [address] [place] [address] * Hepatitis C antibody [[id number]] (06/02/2023 2:36 PM PRINCIPAL ELECTRICAL ENGINEER) Hepatitis C Antibody Nonreactive Nonreactive 06/03/2023 8:52 AM PRINCIPAL ELECTRICAL ENGINEER [facility] CORE/PROT/EN DO Blood STRUCTURE OF LEFT UPPER LIMB / Unknown Venipuncture / Unknown 06/02/2023 2:36 PM PRINCIPAL ELECTRICAL ENGINEER 06/02/2023 2:37 PM PRINCIPAL ELECTRICAL ENGINEER Narrative SPECIALTY CORE/PROT/ENDO - 06/03/2023 8:52 AM PRINCIPAL ELECTRICAL ENGINEER Assay performance characteristics have not been established for newborns, infants, and children. Sánchez Kowalski APRN FORM SETTER HELPER LAB - BLOOD ORDERABLE S Final Result SPECIALTY CORE/PROT/ENDO Specialty Core/Prot/Endo [address] [facility], [address] [place] [address], [facility] [phone] from Last 3 Months or Most Recently Relevant to Health Maintenance [place] [address] [address] [place] [facility] [facility]IC[facility] Advance Directives For more information, please contact: [phone] * Full Code (Latest Code Status on [...] continue PREVIOUSLY ORDERED code status Care Teams Blood Bank Technologist Relationship Specialty Start Date End Date Ryan Cole MD [address] [place] [address] PCP - General 06/02/23 Sánchez Kowalski, RAMONA FORM SETTER HELPER [address] [place] [address] 257905 Nurse Practitioner Nephrology 04/11/23 Marlen Esposito MD [address] [place] [address] [phone] Surgery 04/11/[address] [address] Registered Dietitian Dietitian, Registered 04/11/23 Karen Steel LICSW Cad Detailer 04/11/23 Marlen Esposito MD [address] [place] [address] [phone] Surgery 05/21/23 Karen Steel LICSW Cad Detailer 05/21/23 Sánchez Kowalski APRN FORM SETTER HELPER [address] [place] [address] Nurse Practitioner Nephrology 05/21/[address] [address] Registered Dietitian Dietitian, Registered 05/21/23 Barbara Valdes MD [address] [place] [address] Assigned Surgical Provider 10/14/23
--- OUTSIDE RECORDS SUMMARY | 2024-10-11 14:37 | XMS_ITS | Encounter Summary ---
Author Organization [facility] Address [address] [place] [address]. [place] [address] Care Team Providers Care Upholstery Trimmer Name Role Phone Sánchez Kowalski APRN SERVER PROGRAMMER Unavailable Marlen Esposito MD Unavailable [phone] Unavailable Unavail able Karen Steel Unavailable Marlen Esposito MD Unavailable [phone] Karen Steel Unavailable [phone] Sánchez Kowalski APRN SERVER PROGRAMMER Unavailable [phone] Unavailable Unavail able Ryan Cole MD Primary Care Provider Marlen Esposito MD Unavailable [phone] Barbara Valdes MD Unavailable [phone] Encounter Details Date Type Department Care Team (Late st Contact Info) Description 06/05/2023 Orders Only [facility] [address] [place] [address] Outside, Provider Social History Tobacco Use Types [...] AM CDT Legal 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 Gender Identity Male 03/27/2023 11:48 AM CDT Sexual Orientation Not on file documented as of this encounter Plan of Treatment Not on file documented as of this encounter Procedures Procedure Name Priority Date/Time Associated Diagnosis Comments HLA RESULT REPORT 06/05/2023 2:18 PM SUPPLY CHAIN ASSOCIATE HLA RESULT REPORT 06/05/2023 2:18 PM SUPPLY CHAIN ASSOCIATE documented in this encounter Results * HLA RESULT REPORT (06/05/2023 2:18 PM SUPPLY CHAIN ASSOCIATE) us Provider Outside LAB - IMMUNOLOGY ORDERABLES Fin al Result * HLA RESULT REPORT (06/05/2023 2:18 PM SUPPLY CHAIN ASSOCIATE) us Provider Outside LAB - IMMUNOLOGY ORDERABLES Fin al Result documented in this encounter Visit Diagnoses Not on filedocumented in this encounter Additional Health Concerns Infection Onset Date Last Indicated Resolved Time Rule Out C-difficile 11/15/2023 11/15/2023 024 6:15 PM CDT documented as of this encounter Care Teams Upholstery Trimmer Relationship Specialty Start Date End Date Ryan Cole MD [address] [place] [address] PCP - General 06/02/23 Sánchez Kowalski APRN SERVER PROGRAMMER [address] [place] [address] [phone] Nurse Practitioner Nephrology 04/11/23 Marlen Esposito MD [address] [place] [address] [phone] Surgery 04/11/[address] [place] [address] Registered Dietitian Dietitian, Registered 04/11/23 Karen Steel [facility] Floor Manager 04/11/23 Marlen Esposito MD [address] [place] [address] 82572 Surgery 05/21/23 Karen Steel [facility] Floor Manager 05/21/23 Sánchez Kowalski APRN SERVER PROGRAMMER [address] [place] [address] Nurse Practitioner Nephrology 05/21/[address] [facility] 420 [facility] 84 [place] [address] Registered Dietitian Dietitian, Registered 05/21/23 Marlen Esposito MD [address] [place] [address] Assigned Surgical Provider 06/21/23 10/13/23 Barbara Valdes MD 6 [facility] 2[address] [place] [address] Assigned Surgical Provider 10/14/23 documented as of this encounter
--- OUTSIDE RECORDS SUMMARY | 2024-10-11 14:37 | XMS_ITS | Encounter Summary ---
Author Organization [facility] Address [address] [place] [address]. [place] [address] Care Team Providers Care Bumper Machine Operator Name Role Phone Sánchez Kowalski APRN HOT BALLER Unavailable [phone] Marlen Esposito MD Unavailable Patricia Willoughby RD Unavailable Unavail able Karen Steel Unavailable Marlen Esposito MD Unavailable Karen Steel Unavailable [phone] Sánchez Kowalski APRN HOT BALLER Unavailable [phone] Unavailable Unavail able Ryan Cole MD Primary Care Provider Marlen Esposito MD Unavailable [phone] Barbara Valdes MD Unavailable [phone] Encounter Details Date Type Department Care Team (Late st Contact Info) Description 06/13/2023 Documentation Only [facility] [address] [place] [address] Scan, Non-Provider Social History Tobacco [...] AM CDT Legal 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 Gender Identity Male 03/27/2023 11:48 AM CDT Sexual Orientation Not on file documented as of this encounter Plan of Treatment Not on file documented as of this encounter Visit Diagnoses Not on filedocumented in this encounter Additional Health Concerns Infection Onset Date Last Indicated Resolved Time Rule Out C-difficile 11/15/2023 11/15/2023 024 6:15 PM CDT documented as of this encounter Care Teams Bumper Machine Operator Relationship Specialty Start Date End Date Ryan Cole MD [address] [place] [address] PCP - General 06/02/23 Sánchez Kowalski APRN HOT BALLER [address] [place] [address] [phone] Nurse Practitioner Nephrology 04/11/23 Marlen Esposito MD [address] [place] [address] [phone] Surgery 04/11/[address] [place] [address] Registered Dietitian Dietitian, Registered 04/11/23 Karen Steel PARTNER Vegetable Preparer 04/11/23 Marlen Esposito MD [address] [place] [address] [phone] Surgery 05/21/23 Karen Steel LICSW Vegetable Preparer 05/21/23 Sánchez Kowalski APRN HOT BALLER 9 [place], [place] 777155 Nurse Practitioner Nephrology 05/21/[address] [facility] 420 [facility] 84 [place] [address] Registered Dietitian Dietitian, Registered 05/21/23 Marlen Esposito MD [address] [place] [phone] Assigned Surgical Provider 06/21/23 10/13/23 Barbara Valdes MD 6 [facility] [address] [place] [address] Assigned Surgical Provider 10/14/23 documented as of this encounter
--- OUTSIDE RECORDS SUMMARY | 2024-10-11 14:37 | XMS_ITS | Clinical Summary ---
Author Organization [facility] Address [address] [place] [address] Care Team Providers Care Chief Electrician Name Role Phone Ryan Cole MD Primary Care Provider [phone] Allergies Active Allergy Reactions Criticality Noted Date [...] transplant Olanzapine Muscle Weakness Low 01/20/2017 Medications aspirin enteric coated 81 mg tablet Take 1 tablet by mouth once daily with a meal. 0 07/14/19 14 Active predniSONE (DELTASONE) 5 mg tablet Take 1 tablet by mouth once daily. 3 12/13/19 17 Active lamoTRIgine (LAMICTAL) 200 mg tablet Take 1 tablet. by mouth two times daily. 1 01/15/20 17 Active coenzyme q10 100 mg cap Daily Active ipratropium (ATROVENT NASAL) 21 mcg (0.03 %) nasal spray 06/03/20 21 Active albuterol HFA (PRO-AIR; VENTOLIN; PROVENTIL) 90 mcg/actuation inhaler Inhale 2 Puffs by mouth every 6 hours if needed. 06/21/20 21 Active Renate-Celestine Rx tablet TAKE 1 TABLET BY MOUTH DAILY WITH DINNER 09/09/19 22 Active traZODone (DESYREL) 100 mg tablet Take 100 mg by mouth once daily if needed. 08/28/19 22 Active azelastine 137 mcg/actuation (ASTELIN) nasal spray Inhale 1 mg into affected nostril(s). Active amoxicillin (AMOXIL) 500 mg capsuleIndications :History of joint replacement, unspecified joint TAKE 4 CAPSULES BY MOUTH BEFORE DENTAL APPOINTMENT 4 Capsule 1 07/02/19 24 Active azaTHIOprine (IMURAN) 50 mg tablet Take 50 mg by mouth. 04/11/20 23 Active albuterol-ipratrop ium (DUONEB) (2.5-0.5 mg) in 3 mL NEBULIZATION solution Inhale 1 Neb via a nebulizer every 6 hours if needed for Shortness Of Breath. 05/26/20 23 Active torsemide (DEMADEX) 100 mg tablet Take 1 Tablet (100 mg) by mouth two times daily. 100mg bid 11/25/19 24 Active NIFEdipine (PROCARDIA XL) 30 mg extended-release tablet Take 3 Tablets (90 mg) by mouth once daily before a meal. 11/25/19 24 Active montelukast (SINGULAIR) 10 mg tabletIndications: Chronic sinusitis, unspecified location Take 1 Tablet (10 mg) by mouth at bedtime. 90 Tablet 3 11/25/19 24 Active loratadine (CLARITIN) 10 mg tabletIndications: Chronic sinusitis, unspecified location Take 1 Tablet (10 mg) by mouth once daily. 90 Tablet 3 11/25/19 24 Active atorvastatin (LIPITOR) 40 mg tabletIndications: Hyperlipidemia, unspecified hyperlipidemia type TAKE 1 TABLET(40 MG) BY MOUTH AT BEDTIME 90 Tablet 3 03/31/20 24 Active belatacept (NULOJIX) injectionIndicatio ns:ESRD (end stage renal disease) on dialysis (HC) Infusion per [facility] 07/27/19 25 Active levothyroxine (SYNTHROID) 88 mcg tabletIndications: Hypothyroidism (acquired) TAKE 1 TABLET(88 MCG) BY MOUTH DAILY 90 Tablet 08/26/19 25 Active Active Problems Problem Noted Date Diagnosed Date Closed fracture of neck of right femur 4 Acute pericardial effusion 03/24/2023 Optic neuritis 08/30/2022 [...] state, unspecified 09/09/2006 Liver transplant Overview (05/24/2021): & 2012 On chronic immune suppression Cryptogenic [...] Encounters Date Type Department Care Team Description 08/24/2024 Refill [facility] [address] [place] [address] Ryan Cole MD Refill Request (Levothyroxine) 07/27/2024 8:25 AM APPLICATIONS COORDINATOR Office Visit [facility] [address] [place] [address] [address] Dannielle Brooks MD URI (Started with a sore throat a week ago. Went to [facility]us and lungs. SOB the last few days. Feels his right eye lower lid swollen./Had COVID-19 twice in the past, always came with a fever./Having bi-weekly infusion, Belatacept ) 07/26/2024 Travel from Last 3 Months Immunizations Immunization Administration Dates Next Due AMB INFLUENZA, IIV4 (AGE=>6M OS) MDV (Flu Clinic Only) 04/22/2018 COVID-19 VACCINE SPIKEVAX (M ODERNA 50MCG/0.5ML) 12YO+ PFS 03/09/2024 COVID-19 vaccine (Moderna 100mcg/0.5mL) PF, MDV 01/21/2022,09/03/2020,08/06/2020 HIB PRP-OMP (PedvaxHIB) 12/23/2023 Hepatitis A (Adult) 12/25/2012,12/07/1998,1997 Hepatitis A, Unspecified 12/07/1998,06/08/1998 Hepatitis B (Adult) 12/07/1998, 9,06/22/1998,06/08 Hepatitis B, Unspecified 12/07/1998,06/23,06/22/1998,06/08 Influenza A (H1N1), Inactivated 05/16/2009 Influenza A (H1N1), Inactiva onel (Age >=3 Years) 05/16/2009 Influenza Virus, Unspecified 06/23/2015, 04/06/2015,04/06/2014,04/06 Influenza, High-dose Inactivated 03/23/2023 Influenza, High-dose Quadriv alent Inactivated 04/08/2022,03/05/2021,02/11/2020,03/28,04/06/2015,03/15/2015,04/06/2014 ,02/13/2014,04/06/2013,03/05/2013,01/22,03/26/2011,03/28/2010, 9 Influenza, IIV3 (Age 6-35 mos) 03/28/2016,2014,03/26/2011 Influenza, IIV3 (Age >=3 years) 03/16/20 15,02/14/2014,03/05/2013,02/18,03/26/2011,03/28/2010,04/05/2004 Influenza, IIV4 03/15/2019,04/22/2018 Influenza, IIV4 (=>6mos) MDV 03/15/2019 Influenza, Inactivated AIIV4 (Age 65+ Years) Preserv Free 04/08/2022 Influenza, Inactivated IIV3 (Age 65+ Years) Preserv Free 03/09/2024 MENINGOCOCCAL VACCINE (MENQU ADFI 0.5ML) 2YO+ POLYSACCHARIDE PF 02/24/2024,12/23/2023 Meningococcal B 02/24/2024,12/23/2023 Pneumococcal Conj 20-valent (Prevnar 20) 05/06/2023 Pneumococcal Conjugate, Unsp ecified Formulation 06/23/2014,12/25/2012,06/23/2009,04/30,02/05/1996 Pneumococcal Poly,23-Valent (Pneumovax) 04/30/2005,08/07/1995 Pneumococcal conj 13-Valent (Prevnar 13) 12/25/2012,06/23/2009 Pneumococcal, Unspecified 06/23/2014 RSV, Bivalent Vaccine Recons tituted (Abrysvo 120MCG/0.5mL) 05/13/2023 TD, UNSPECIFIED 05/11/2003 Td (Age >=7 Years) 05/11/2003 Tdap 12/23/2023,02/19/2012 Tuberculin (PPD) 01/07/2023,12/12/2022, 2 Tuberculin Skin Test, [...] 0 11/25/2023 Social Connections Answer Date Recorded Do you often feel lonely or isolated from those around you? 0 11/03/2023 Financial Resource Strain Answer Date R ecorded Difficulty of Paying Living Expenses 3 11/03/2023 Difficulty of Paying Living Expenses Not on file 11/03/2023 Food Insecurity Answer Date Recorded Do you worry your food will run out before you are able to buy more? 1 11/03/2023 Transportation Needs Answer Date Record ed Does lack of transportation keep you from medica l appointments? 1 11/03/2023 Does lack of transportation keep you from work, meetings or getting things that you need? 1 11/03/2023 Housing Stability Answer Date Recorded What is your housing situation today? 1 11/03/2023 Utilities Answer Date Recorded Do you have trouble paying f or utilities (for example, heat, electricity, water, phone)? 1 11/03/2023 Sex and Gender Information Value Date Recorded Sex Assigned at Not on file Legal Sex Male 6:21 AM APPLICATIONS COORDINATOR Gender Identity Not on file Sexual Orientation Not on file Obstetrics History Last Filed Vital Signs Vital Sign Reading Time Taken Comments Blood Pressure 120/64 07/27/2024 8:35 AM APPLICATIONS COORDINATOR Pulse 79 07/27/2024 8:35 AM APPLICATIONS COORDINATOR Temperature 36.4 C (97.6 F) 07/27/2024 8:35 AM APPLICATIONS COORDINATOR Respiratory Rate 24 05/24/2021 11:02 AM APPLICATIONS COORDINATOR Oxygen Saturation 100% 07/27/2024 8:35 AM APPLICATIONS COORDINATOR Inhaled Oxygen Concentration - - Weight 76.3 kg (168 lb 4.8 oz) 07/27/2024 8:35 A M APPLICATIONS COORDINATOR Height 175.3 cm (5' 9) 11/25/2023 9:05 AM CDT Body Mass Index 24.85 11/25/2023 9:05 AM CDT Plan of Treatment Health Maintenance Due Date Last Done Comments COVID-19 vaccine series (9 - Moderna risk season) 2024 03/09/2024, 12/23/2023, 05/13/2023, Additional history exists BMI (ht and wt on same day) for age 18+ 11/24/2024 11/25/2023, 05/24/2021, 04/26/2021, Additional history exists Depression screening for age 12+ 11/24/2024 11/25/2023, 12/13/2021, 12/18/2020, Additional history exists Medicare Wellness for age 65+ 11/25/2024 11/25/2023 Colonoscopy through age 75 07/10/202607/10 (Verified in Care Everywhere or Patient Record) Lipids for age 45-75 11/24/2028 11/25/2023, 04/26/2021, 05/02/2014, Additional history exists Tetanus booster 12/22/2033 12/23/2023, 01/22, 05/11/2003, Additional history exists Zoster (shingles) series for age 50+ Completed 01/06/2018, 10/03/2017, 10/03/2017 Hepatitis C screening for ag e 18-79 Completed 04/26/2021 Pneumococcal series for age 50+ Completed 05/06/2023, 06/23/2014, 06/23/2014, Additional history exists RSV vaccine for adults or Completed 05/13/2023 Tdap Completed 12/23/2023, 02/19/2012 Influenza Vaccine Completed 03/09/2024, , 04/08/2022, Additional history exists Procedures Procedure Name Priority Date/Time Associated Diagnosis Comments LIPID PANEL Routine 11/25/2023 9:58 AM CDT Mixed hyperlipidemia ANTI HCV Add On 04/26/2021 10:01 AM CDT Need for hepatitis C screening test from Last 3 Months or Most Recently Relevant to Health Maintenance Results * (ABNORMAL) LIPID PANEL (11/25/2023 9:58 AM CDT) CHOLESTEROL,TOTAL 209(H) 100 - 199 mg/dL 11/25/2023 6:47 PM CDT [facility] Comment: Cholesterol, Total Reference Ranges Desirable <200 mg/dL Borderline 200-239 mg/dL High >=240 mg/dL TRIGLYCERIDES 216(H) <150 mg/dL 11/25/2023 6:47 PM CDT [facility] HDL CHOLESTEROL 52 >40 mg/dL 6:47 PM CDT [facility] NON-HDL CHOLESTEROL 157(H) <145 mg/dl 11/25/2023 6:47 PM CDT [facility] CHOL/HDL RATIO 4.02 <4.50 11/25/2023 6:47 PM CDT [facility] LDL CHOLESTEROL 114 <=130 mg/dL 11/25/2023 6:47 PM CDT [facility] VLDL CHOLESTEROL 43(H) <=30 mg/dL 11/25/2023 6:47 PM CDT [facility] PROVIDER ORDERED STATUS RANDOM 11/25/2023 6:47 PM CDT [facility] Blood BLOOD SPECIMEN / Unknown Venipuncture / Unknown 11/25/2023 9:58 AM CDT 11/25/2023 9:59 AM CDT Ryan Cole MD CHEMISTRY Final Resu lt [facility] [address] [place] [address], * ANTI HCV (04/26/2021 10:01 AM CDT) HEPATITIS C ANTIBODY Non-React davin Non-React davin 04/26/2021 6:19 PM CDT [facility] Comment:Antibodies to HCV no t detected; does not exclude the possibility of exposure to HCV. Blood BLOOD SPECIMEN / Unknown Venipuncture / Unknown 04/26/2021 10:01 AM CDT 04/26/2021 10:01 AM CDT Ryan Cole MD SEND OUTS Final Resu lt [facility] [address] [place] [address], from Last 3 Months or Most Recently Relevant to Health Maintenance Insurance [place] ONLY MEDICARE PART A HB ONLY MEDICARE PART B HB ONLY [place] BLUE MR PB ONLY Advance Directives Documents on File Type Date Recorded Patient Echocardiograph Tech Expl anation Healthcare Directive 11/28/2023 024 * Full Code (Latest Code Status on File) Date Activated Date Inactivated Comments 04/30/2021 5:43 AM 04/30/2021 10:06 AM Question Answer Comments Code Status Discussion: Reviewed Preferences Care Teams Chief Electrician Relationship Specialty Start Date End Date Ryan Cole MD [address] [place] [address] PCP - General Family Practice 07/11/14
--- OUTSIDE RECORDS SUMMARY | 2024-10-11 14:37 | XMS_ITS | Encounter Summary ---
Author Organization [facility] Address [address] [place] [address]. [place] [address] Care Team Providers Care Structural Test Engineer Name Role Phone Sánchez Kowalski APRN RAISED PRINTER Unavailable Marlen Esposito MD Unavailable Patricia Willoughby RD Unavailable Unavail able Karen Steel Unavailable Marlen Esposito MD Unavailable [phone] Karen Steel Unavailable [phone] Sánchez Kowalski APRN RAISED PRINTER Unavailable [phone] Unavailable Unavail able Ryan Cole MD Primary Care Provider Marlen Esposito MD Unavailable [phone] Barbara Valdes MD Unavailable [phone] Encounter Details Date Type Department Care Team (Late st Contact Info) Description 06/18/2023 Orders Only [facility] [address] [place] [address] Outside, Provider Social History Tobacco Use Types [...] AM CDT Legal 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 CNP Gender Identity Male 03/27/2023 11:48 AM CDT Sexual Orientation Not on file documented as of this encounter Plan of Treatment Not on file documented as of this encounter Procedures Procedure Name Priority Date/Time Associated Diagnosis Comments HLA RESULT REPORT 06/18/2023 1:05 PM CNP HLA RESULT REPORT 06/18/2023 1:05 PM CNP documented in this encounter Results * HLA RESULT REPORT (06/18/2023 1:05 PM CNP) us Provider Outside LAB - IMMUNOLOGY ORDERABLES Fin al Result * HLA RESULT REPORT (06/18/2023 1:05 PM CNP) us Provider Outside LAB - IMMUNOLOGY ORDERABLES Fin al Result documented in this encounter Visit Diagnoses Not on filedocumented in this encounter Additional Health Concerns Infection Onset Date Last Indicated Resolved Time Rule Out C-difficile 11/15/2023 11/15/2023 024 6:15 PM CDT documented as of this encounter Care Teams Structural Test Engineer Relationship Specialty Start Date End Date Ryan Cole MD [address] [place] [address] PCP - General 06/02/23 Sánchez Kowalski APRN RAISED PRINTER [address] [place] [address] [id number] Nurse Practitioner Nephrology 04/11/23 Marlen Esposito MD [address] [place] [address] [phone] Surgery 04/11/[address] [place] [address] Registered Dietitian Dietitian, Registered 04/11/23 Karen Steel [facility] Auto Roller 04/11/23 Marlen Esposito MD [address] [place] [id number] Surgery 05/21/23 Karen Steel [facility] Auto Roller 05/21/23 Sánchez Kowalski APRN RAISED PRINTER [address] [place] [address] Nurse Practitioner Nephrology 05/21/[address] [facility] [address] [facility] [address] [place] [address] Registered Dietitian Dietitian, Registered 05/21/23 Marlen Esposito MD [address] [place] [address] Assigned Surgical Provider 06/21/23 10/13/23 Barbara Valdes MD [address] [facility] [address] [place] [address] Assigned Surgical Provider 10/14/23 documented as of this encounter
--- OUTSIDE RECORDS SUMMARY | 2024-10-11 14:37 | XMS_ITS | Encounter Summary ---
Author Organization [facility] Address [address] [place] [address] Care Team Providers Care Quality Control Inspector Name Role Phone Sánchez Kowalski APRN WORK ORDER SORTING CLERK Unavailable Marlen Esposito MD Unavailable Patricia Willoughby RD Unavailable Unavail able Karen Steel Unavailable Marlen Esposito MD Unavailable Karen Steel Unavailable Sánchez Kowalski APRN WORK ORDER SORTING CLERK Unavailable Patricia Willoughby RD Unavailable Unavail able Ryan Cole MD Primary Care Provider Marlen Esposito MD Unavailable Barbara Valdes MD Unavailable [phone] Encounter Details Date Type Department Care Team (Late st Contact Info) Description 06/05/2023 [facility] [address] [place] [id number] Marlen Esposito MD [address] [place] [address] Social History Tobacco Use Types Packs/Day [...] AM CDT 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 Gender Identity Male 03/27/2023 11:48 AM CDT [...] of this encounter Care Teams Quality Control Inspector Relationship Specialty Start Date End Date Ryan Cole MD [address] [place] [address] PCP - General 06/02/23 Sánchez Kowalski, RIPSAW GRADER WORK ORDER SORTING CLERK [address] [place] [address] [phone] Nurse Practitioner Nephrology 04/11/23 Marlen Esposito MD [address] [place] [address] [id number] Surgery 04/11/[address] [place] [address] Registered Dietitian Dietitian, Registered 04/11/23 Karen Steel, AIRCRAFT QUALITY CONTROL INSPECTOR Director Cloud Transformation 04/11/23 Marlen Esposito MD [address] [place] [address] [phone] Surgery 05/21/23 Karen Steel LICSW Director Cloud Transformation 05/21/23 Sánchez Kowalski APRN WORK ORDER SORTING CLERK [address] [place] [address] Nurse Practitioner Nephrology 05/21/[address] [place] [address] Registered Dietitian Dietitian, Registered 05/21/23 Marlen Esposito MD [address] [place] [address] [phone] Assigned Surgical Provider 06/21/23 10/13/23 Barbara Valdes MD [address] [place] [address] [address] [place] [address] Assigned Surgical Provider 10/14/23 documented as of this encounter
--- OUTSIDE RECORDS SUMMARY | 2024-10-11 14:37 | XMS_ITS | Encounter Summary ---
Author Organization [facility] Address [address] [place] [address] Care Team Providers Care Clark Driver Name Role Phone Sánchez Kowalski APRN MALARIOLOGIST Unavailable Marlen Esposito MD Unavailable Patricia Willoughby RD Unavailable Unavail able Karen Steel Unavailable Marlen Esposito MD Unavailable [phone] Karen Steel Unavailable Sánchez Kowalski APRN MALARIOLOGIST Unavailable Patricia Willoughby RD Unavailable Unavail able Ryan Cole MD Primary Care Provider [phone] Marlen Esposito MD Unavailable [phone] Barbara Valdes MD Unavailable [phone] Encounter Details Date Type Department Care Team (Late st Contact Info) Description 06/06/2023 [facility] [place] [facility] [address] [place] [address] Sánchez Kowalski APRN MALARIOLOGIST [address] [place] [address] Social History Tobacco Use Types [...] AM CDT Legal 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 Gender Identity Male 03/27/2023 11:48 AM CDT Sexual Orientation Not on file documented as of this encounter Plan of Treatment Not on file documented as of this encounter Visit Diagnoses Not on filedocumented in this encounter Additional Health Concerns Infection Onset Date Last Indicated Resolved Time Rule Out C-difficile 11/15/2023 11/15/2023 024 6:15 PM CDT documented as of this encounter Care Teams Clark Driver Relationship Specialty Start Date End Date Ryan Cole MD [address] [place] [address] PCP - General 06/02/23 Sánchez Kowalski, [employer] MALARIOLOGIST [address] [place] [address] [phone] Nurse Practitioner Nephrology 04/11/23 Marlen Esposito MD [address] [place] [address] [id number] Surgery 04/11/[address] [place] [address] Registered Dietitian Dietitian, Registered 04/11/23 Karen Steel, MATERIAL HANDLER FLOORPERSON Incident Response Manager 04/11/23 Marlen Esposito MD [address] [place] [address] [phone] Surgery 05/21/23 Karen Steel MATERIAL HANDLER FLOORPERSON Incident Response Manager 05/21/23 Sánchez Kowalski APRN [facility] [address] [place] [address] Nurse Practitioner Nephrology 05/21/[address] [facility] [address] [facility] [address] [place] [address] Registered Dietitian Dietitian, Registered 05/21/23 Marlen Esposito MD [address] [place] [address] [phone] Assigned Surgical Provider 06/21/23 10/13/23 Barbara Valdes MD [address] [place] [address] Assigned Surgical Provider 10/14/23 documented as of this encounter
--- OUTSIDE RECORDS SUMMARY | 2024-10-11 14:37 | XMS_ITS | Encounter Summary ---
Author Organization [facility] Address [address] [place] [address]. [place] [address] Care Team Providers Care Livestock Counter Name Role Phone Sánchez Kowalski APRN DIRECTOR OF PRODUCT DEVELOPMENT Unavailable Marlen Esposito MD Unavailable Patricia Willoughby RD Unavailable Unavail able Karen Steel Unavailable [phone] Marlen Esposito MD Unavailable Karen Steel Unavailable Sánchez Kowalski APRN DIRECTOR OF PRODUCT DEVELOPMENT Unavailable [phone] Unavailable Unavail able System, Provider Not In Primary Care Provider Un available Ryan Cole MD Primary Care Provider [phone] Marlen Esposito MD Unavailable [phone] Barbara Valdes MD Unavailable [phone] Encounter Details Date Type Department Care Team (Late st Contact Info) Description 04/11/2023 [facility] [place] [facility] [address] [place] [phone] Linnea Graff, RN Social History Tobacco [...] AM CDT Legal 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 Gender Identity Male 03/27/2023 11:48 AM CDT Sexual Orientation Not on file documented as of this encounter Plan of Treatment Not on file documented as of this encounter Visit Diagnoses Not on filedocumented in this encounter Additional Health Concerns Infection Onset Date Last Indicated Resolved Time Rule Out C-difficile 11/15/2023 11/15/2023 024 6:15 PM CDT documented as of this encounter Care Teams Livestock Counter Relationship Specialty Start Date End Date System, Provider Not In PCP - General Clinic 05/21/23 05/21/23 Ryan Cole MD [address] [place] [address] PCP - General 06/02/23 Sánchez Kowalski APRN DIRECTOR OF PRODUCT DEVELOPMENT [address] [place] [address] [phone] Nurse Practitioner Nephrology 04/11/23 Marlen Esposito MD [address] [place] [address] Surgery 04/11/[address] [place] [address] Registered Dietitian Dietitian, Registered 04/11/23 Karen Steel LICSW Welder Shielded Metal Arc 04/11/23 Marlen Esposito MD [address] [place] [address] [phone] Surgery 05/21/23 Karen Steel LICSW Welder Shielded Metal Arc 05/21/23 Sánchez Kowalski APRN DIRECTOR OF PRODUCT DEVELOPMENT [address] [place] [address] Nurse Practitioner Nephrology 05/21/[address] [place] [address] Registered Dietitian Dietitian, Registered 05/21/23 Marlen Esposito MD [address] [place] [address] [phone] Assigned Surgical Provider 06/21/23 10/13/23 Barbara Valdes MD 6 [facility] [address] [place], [place] [phone] Assigned Surgical Provider 10/14/23 documented as of this encounter
--- OUTSIDE RECORDS SUMMARY | 2024-10-11 14:37 | XMS_ITS | Encounter Summary ---
Author Organization [place] Address [address] [place] [address]. [place] [address] Care Team Providers Care Casting Trucker Name Role Phone Sánchez Kowalski APRN WIRELESS TELEGRAPHER Unavailable Marlen Esposito MD Unavailable [phone] Unavailable Unavail able Karen Steel Unavailable [phone] Marlen Esposito MD Unavailable Karen Steel Unavailable Sánchez Kowalski APRN WIRELESS TELEGRAPHER Unavailable Patricia Willoughby RD Unavailable Unavail able Ryan Cole MD Primary Care Provider Marlen Esposito MD Unavailable [phone] Barbara Valdes MD Unavailable [phone] Encounter Details Date Type Department Care Team (Late st Contact Info) Description 07/27/2023 [facility] [address] [place] [address] Linnea Graff, RN Social History [...] AM CDT Legal 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 Gender Identity Male 03/27/2023 11:48 AM CDT Sexual Orientation Not on file documented as of this encounter Plan of Treatment Not on file documented as of this encounter Visit Diagnoses Not on filedocumented in this encounter Additional Health Concerns Infection Onset Date Last Indicated Resolved Time Rule Out C-difficile 11/15/2023 11/15/2023 024 6:15 PM CDT documented as of this encounter Care Teams Casting Trucker Relationship Specialty Start Date End Date Ryan Cole MD [address] [place] [address] PCP - General 06/02/23 Sánchez Kowalski, RAMONA WIRELESS TELEGRAPHER [address] [place] [address] [id number] Nurse Practitioner Nephrology 04/11/23 Marlen Esposito MD [address] [place] [address] [phone] Surgery 04/11/[address] [place] [address] Registered Dietitian Dietitian, Registered 04/11/23 Karen Steel PROCESSING ASSISTANT Strap Setter 04/11/23 Marlen Esposito MD [address] [place] [address] [id number] Surgery 05/21/23 Karen Steel LICSW Strap Setter 05/21/23 Sánchez Kowalski APRN WIRELESS TELEGRAPHER [address] [place], [place] 959485 Nurse Practitioner Nephrology 05/21/[address] [facility] [address] [facility] 84 [place] [address] Registered Dietitian Dietitian, Registered 05/21/23 Marlen Esposito MD [address] [place] [address] 08359 Assigned Surgical Provider 06/21/23 10/13/23 Barbara Valdes MD 6 [facility] [address]A [place] [address] Assigned Surgical Provider 10/14/23 documented as of this encounter
--- OUTSIDE RECORDS SUMMARY | 2024-10-11 14:37 | XMS_ITS | Encounter Summary ---
Author Organization [place] Address [address] [place] [address]. [place] [address] Care Team Providers Care Cognos Administrator Name Role Phone Sánchez Kowalski APRN CRT Unavailable [phone] Marlen Esposito MD Unavailable Patricia Willoughby RD Unavailable Unavail able Karen Steel Unavailable Marlen Esposito MD Unavailable Karen Steel Unavailable Sánchez Kowalski APRN CRT Unavailable Patricia Willoughby RD Unavailable Unavail able Ryan Cole MD Primary Care Provider Marlen Esposito MD Unavailable [phone] Barbara Valdes MD Unavailable [phone] Encounter Details Date Type Department Care Team (Late st Contact Info) Description 07/15/2023 [facility] [address] [place] [address] Linnea Graff, RN Social History [...] AM CDT 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 Gender Identity Male 03/27/2023 11:48 AM CDT Sexual Orientation Not on file documented as of this encounter Plan of Treatment Not on file documented as of this encounter Visit Diagnoses Not on filedocumented in this encounter Additional Health Concerns Infection Onset Date Last Indicated Resolved Time Rule Out C-difficile 11/15/2023 11/15/2023 024 6:15 PM CDT documented as of this encounter Care Teams Cognos Administrator Relationship Specialty Start Date End Date Ryan Cole MD [address] [place] [address] PCP - General 06/02/23 Sánchez Kowalski, RAMONA CRT [address] [place] [address] [id number] Nurse Practitioner Nephrology 04/11/23 Marlen Esposito MD [address] [place] [address] 200325 Surgery 04/11/[address] [place] [address] Registered Dietitian Dietitian, Registered 04/11/23 Karen Steel GETTER FILLER Diesel Motor Mechanic 04/11/23 Marlen Esposito MD [address] [place] [address] [id number] Surgery 05/21/23 Karen Steel LICSW Diesel Motor Mechanic 05/21/23 Sánchez Kowalski APRN CRT 9 [place], [place] 260[address] Nurse Practitioner Nephrology 05/21/[address] [facility] 420 [facility] 84 [place] [address] Registered Dietitian Dietitian, Registered 05/21/23 Marlen Esposito MD [address] [place] [address]82 Assigned Surgical Provider 06/21/23 10/13/23 Barbara Valdes MD 6 [facility] 2A [place] [address] Assigned Surgical Provider 10/14/23 documented as of this encounter
--- OUTSIDE RECORDS SUMMARY | 2024-10-11 14:37 | XMS_ITS | Referral Summary ---
Author Organization [facility] Address [address] [place] [phone] Phone Care Team Providers Care Bed Maker Name Role Phone Unavailable Primary Care Provider Unavailabl e Source Comments [employer] is fully rolled out on [employer]. Last update 11/25/08.[facility] Allergies Active Allergy Reactions Criticality Noted Date [...] document. Always verify current medications with patient. azaTHIOprine (IMURAN) 50 mg oral TABS Take 1 tablet (50 mg) by mouth twice daily. 08/22/2023 Active everolimus (ZORTRESS) 0.5 MG oral tablet Take 2 tablets (1 mg) by mouth twice daily 08/28/2023 Active predniSONE 5 mg oral tablet Take 1 tablet (5 mg) by mouth daily. 09/06/2023 Active Social History Tobacco Use Types Packs/Day Years Used Date Smoking Tobacco: Never Assessed Sex and Gender Information Value Date Recorded Sex Assigned at Not on file Legal Sex Male 4:43 AM CDT Gender Identity Not on file Sexual Orientation Not on file Last Filed Vital Signs Vital Sign Reading Time Taken Comments Blood Pressure 123/64 11/11/2023 5:38 PM CDT Pulse 78 11/11/2023 3:30 PM CDT Temperature 37.2 C (99 F) 11/11/2023 6:01 AM CDT Respiratory Rate 14 11/11/2023 5:38 PM CDT Oxygen Saturation 97% 11/11/2023 5:38 PM CDT Inhaled Oxygen Concentration - - Weight - - Height - - Body Mass Index - - Plan of Treatment Not on file Insurance [facility] MEDIC[facility]
--- OUTSIDE RECORDS SUMMARY | 2024-10-11 14:37 | XMS_ITS | Encounter Summary ---
Author Organization [place] Address [address] [place] [address]. [place] [address] Care Team Providers Care Dye Operator Name Role Phone Sánchez Kowalski APRN SCREENING NURSE Unavailable Marlen Esposito MD Unavailable Patricia Willoughby RD Unavailable Unavail able Karen Steel Unavailable Marlen Esposito MD Unavailable Karen Setel Unavailable Sánchez Kowalski APRN SCREENING NURSE Unavailable Patricia Willoughby RD Unavailable Unavail able Ryan Cole MD Primary Care Provider [phone] Marlen Esposito MD Unavailable [phone] Barbara Valdes MD Unavailable [phone] Encounter Details Date Type Department Care Team (Late st Contact Info) Description 08/13/2023 [facility] [address] [place] [address] Linnea Graff, RN Social History [...] AM CDT 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 Gender Identity Male 03/27/2023 11:48 AM CDT Sexual Orientation Not on file documented as of this encounter Plan of Treatment Not on file documented as of this encounter Visit Diagnoses Not on filedocumented in this encounter Additional Health Concerns Infection Onset Date Last Indicated Resolved Time Rule Out C-difficile 11/15/2023 11/15/2023 024 6:15 PM CDT documented as of this encounter Care Teams Dye Operator Relationship Specialty Start Date End Date Ryan Cole MD [address] [place] [address] PCP - General 06/02/23 Sánchez Kowalski, RAMONA SCREENING NURSE [address] [place] [address] [id number] Nurse Practitioner Nephrology 04/11/23 Marlen Esposito MD [address] [place] [address] [phone] Surgery 04/11/[address] [place] [address] Registered Dietitian Dietitian, Registered 04/11/23 Karen Steel STEEL HANGER Icer Machine Operator 04/11/23 Marlen Esposito MD [address] [place] [address] [id number] Surgery 05/21/23 Karen Steel LICSW Icer Machine Operator 05/21/23 Sánchez Kowalski APRN SCREENING NURSE 9 [place], [place] 658295 Nurse Practitioner Nephrology 05/21/[address] [facility] 420 [facility] 84 [place] [address] Registered Dietitian Dietitian, Registered 05/21/23 Marlen Esposito MD [address] [place] [address] 68153 Assigned Surgical Provider 06/21/23 10/13/23 Barbara Valdes MD 6 [facility] 2A [place] [address] Assigned Surgical Provider 10/14/23 documented as of this encounter
--- OUTSIDE RECORDS SUMMARY | 2024-10-11 14:37 | XMS_ITS | Encounter Summary ---
Author Organization [place] Address [address] [place] [address]. [place] [address] Care Team Providers Care Insurance Coordinator Name Role Phone Sánchez Kowalski APRN CREDIT REPORTING CLERK Unavailable Marlen Esposito MD Unavailable Patricia Willoughby RD Unavailable Unavail able Karen Steel Unavailable Marlen Esposito MD Unavailable Karen Steel Unavailable Sánchez Kowalski APRN CREDIT REPORTING CLERK Unavailable [phone] Unavailable Unavail able Ryan Cole MD Primary Care Provider [phone] Marlen Esposito MD Unavailable [phone] Barbara Valdes MD Unavailable [phone] Encounter Details Date Type Department Care Team (Late st Contact Info) Description 06/13/2023 Documentation Only [facility] [address] [place] [address] Scan, Non-Provider Social History Tobacco [...] AM CDT Legal 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 Gender Identity Male 03/27/2023 11:48 AM CDT [...] Coordinator Relationship Specialty Start Date End Date Ryan Cole MD [address] [place] [address] PCP - General 06/02/23 Sánchez Kowalski APRN CREDIT REPORTING CLERK [address] [place] [address] [id number] Nurse Practitioner Nephrology 04/11/23 Marlen Esposito MD [address] [place] [address] [id number] Surgery 04/11/[address] [place] [address] Registered Dietitian Dietitian, Registered 04/11/23 Karen Steel ELECTRICIAN School Janitor 04/11/23 Marlen Esposito MD [address] [place] [address] [id number] Surgery 05/21/23 Karen Steel LICSW School Janitor 05/21/23 Sánchez Kowalski APRN CREDIT REPORTING CLERK 9 [place], [place] 77[address] Nurse Practitioner Nephrology 05/21/[address] [facility] 420 [facility] 84 [place] [address] Registered Dietitian Dietitian, Registered 05/21/23 Marlen Esposito MD [address] [place] [address] 25879 Assigned Surgical Provider 06/21/23 10/13/23 Barbara Valdes MD 6 [facility] 2[address] [place] [address] Assigned Surgical Provider 10/14/23 documented as of this encounter
--- OUTSIDE RECORDS SUMMARY | 2024-10-11 14:37 | XMS_ITS | Clinical Summary ---
Author Organization [facility] Address [address] [place] [phone] Phone Care Team Providers Care Supply Crib Attendant Name Role Phone Unavailable Primary Care Provider Unavailabl e Source Comments [employer] is fully rolled out on [employer]. Last update 11/25/08.[facility] Allergies Active Allergy Reactions Criticality Noted Date [...] FIT/Cologuard 1955 Sigmoidoscopy 1954 Periodontal Maintenance 1968 Imm: HepB (3 of 3 - 19+ 3-dose series) 02/01/1999 12/07/1998, 07/06/1998, 06/22/1998, Additional history exists Colorectal Cancer Screening 05/01/2022 iFOB/FIT 05/01/2022 05/01/2021, 03/23, 11/19/2018 Imm: COVID-19 ( season) 2024 12/23/2023, 05/13/2023, 01/21/2022, Additional history exists Imm: Flu (#1) 02/22/2024 03/23/2023, 02/21, 02/11/2020, Additional history exists Medicare Annual Wellness 11/24/2024 11/25/2023 Lipid Screening 12/22/2028 12/23/2023, 06/09/2023, 02/05/2023, Additional history exists Imm: DTaP/Tdap (3 - Td or Tdap) 12/22/2033 12/23/2023, 02/19/2012, 05/11/2003 Imm: HepA Aged Out 12/25/2012, 11/21, 06/08/1998 No longer eligible based on patient's age to complete this topic Imm: Zoster Completed 01/06/2018, 10/03/2017 Imm: Pneumonia 50 years and older Completed 05/06/2023, 06/23/2014, 06/23/2014, Additional history exists Hepatitis C Screening Completed 06/02/2023 Abdominal Aortic Aneurysm (AAA) Screening Completed 12/23/2023, 08/09/2023 Imm: Hib Aged Out 12/23/2023 No longer eligi ble based on patient's age to complete this topic Osteoporosis Screening (Dexa Scan) Completed 12/23/2023, 12/23/2023, 12/05/2021, Additional history exists Imm: Meningitis Aged Out 02/24/2024, 12/23/2023 No longer eligible based on patient's age to complete this topic Imm: HPV Aged Out No longer eligi ble based on patient's age to complete this topic Insurance [facility] MEDICARE
--- OUTSIDE RECORDS SUMMARY | 2024-10-11 14:37 | XMS_ITS | Encounter Summary ---
Author Organization [place] Address [address] [place] [address]. [place] [address] Care Team Providers Care Kettle Tender Name Role Phone Sánchez Kowalski APRN PILLOW CLEANER Unavailable [phone] Marlen Esposito MD Unavailable Patricia Willoughby RD Unavailable Unavail able Karen Steel Unavailable Marlen Esposito MD Unavailable [phone] Karen Steel Unavailable Sánchez Kowalski APRN PILLOW CLEANER Unavailable Patricia Willoughby RD Unavailable Unavail able Ryan Cole MD Primary Care Provider Marlen Esposito MD Unavailable [phone] Barbara Valdes MD Unavailable [phone] Encounter Details Date Type Department Care Team (Late st Contact Info) Description 07/10/2023 [facility] [address] [place] [address] Linnea Graff, RN Social History [...] AM CDT 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 Gender Identity Male 03/27/2023 11:48 AM CDT Sexual Orientation Not on file documented as of this encounter Plan of Treatment Not on file documented as of this encounter Visit Diagnoses Not on filedocumented in this encounter Additional Health Concerns Infection Onset Date Last Indicated Resolved Time Rule Out C-difficile 11/15/2023 11/15/2023 024 6:15 PM CDT documented as of this encounter Care Teams Kettle Tender Relationship Specialty Start Date End Date Ryan Cole MD [address] [place] [address] PCP - General 06/02/23 Sánchez Kowalski, RAMONA PILLOW CLEANER [address] [place] [address] [id number] Nurse Practitioner Nephrology 04/11/23 Marlen Esposito MD [address] [place] [address] [phone] Surgery 04/11/[address] [place] [address] Registered Dietitian Dietitian, Registered 04/11/23 Karen Steel FIELD SAMPLING TECHNICIAN Requirements Manager 04/11/23 Marlen Esposito MD [address] [place] [address] [phone] Surgery 05/21/23 Karen Steel LICSW Requirements Manager 05/21/23 Sánchez Kowalski APRN PILLOW CLEANER 9 [place], [place] 422[address] Nurse Practitioner Nephrology 05/21/[address] [facility] 420 [facility] 84 [place] [address] Registered Dietitian Dietitian, Registered 05/21/23 Marlen Esposito MD [address] [place] [address] Assigned Surgical Provider 06/21/23 10/13/23 Barbara Valdes MD 6 [facility] 2A [place] [address] Assigned Surgical Provider 10/14/23 documented as of this encounter
--- OUTSIDE RECORDS SUMMARY | 2024-10-11 14:37 | XMS_ITS | Encounter Summary ---
Author Organization [facility] Address [address] [place] [address]. [place] [address] Care Team Providers Care Glass Novelty Maker Name Role Phone Sánchez Kowalski APRN CLAY PUDDLER Unavailable Marlen Esposito MD Unavailable [phone] Unavailable Unavail able Karen Steel Unavailable Marlen Esposito MD Unavailable [phone] Karen Steel Unavailable Sánchez Kowalski APRN CLAY PUDDLER Unavailable [phone] Unavailable Unavail able Ryan Cole MD Primary Care Provider Marlen Esposito MD Unavailable [phone] Barbara Valdes MD Unavailable [phone] Encounter Details Date Type Department Care Team (Late st Contact Info) Description 06/20/2023 [facility] [address] [place] [address] Linnea Graff, RN Social History [...] AM CDT 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 Gender Identity Male 03/27/2023 11:48 AM CDT Sexual Orientation Not on file documented as of this encounter Plan of Treatment Not on file documented as of this encounter Visit Diagnoses Not on filedocumented in this encounter Additional Health Concerns Infection Onset Date Last Indicated Resolved Time Rule Out C-difficile 11/15/2023 11/15/2023 024 6:15 PM CDT documented as of this encounter Care Teams Glass Novelty Maker Relationship Specialty Start Date End Date Ryan Cole MD [address] [place] [address] PCP - General 06/02/23 Sánchez Kowalski, RAMONA CLAY PUDDLER [address] [place] [address] [phone] Nurse Practitioner Nephrology 04/11/23 Marlen Esposito MD [address] [place] [address] [phone] Surgery 04/11/[address] [place] [address] Registered Dietitian Dietitian, Registered 04/11/23 Karen Steel EMPLOYMENT ADVISOR Target Trimmer 04/11/23 Marlen Esposito MD [address] [place] [address] [phone] Surgery 05/21/23 Karen Steel LICSW Target Trimmer 05/21/23 Sánchez Kowalski APRN CLAY PUDDLER 9 [place], [place] 3544[address] Nurse Practitioner Nephrology 05/21/[address] [facility] 420 [facility] 84 [place] [address] Registered Dietitian Dietitian, Registered 05/21/23 Marlen Esposito MD [address] [place] [phone] Assigned Surgical Provider 06/21/23 10/13/23 Barbara Valdes MD 6 [facility] 2A [place] [address] Assigned Surgical Provider 10/14/23 documented as of this encounter
--- OUTSIDE RECORDS SUMMARY | 2024-10-11 14:37 | XMS_ITS | Data Portability ---
Author Organization [place] - Identify, [facility] Address [address] [place] [address] Care Team Providers Care Handkerchief Sample Clerk Name Role Phone SHERWIN OAKLEY Referring Provider Assessment No assessment recorded. Plan of Treatment Reminders Order Date Submit Date Provider Last Modified By Organization Details Last Modified Time Details Appointments None recorded. Lab None recorded. Referral None recorded. Procedures None recorded. Surgeries None recorded. Imaging x-ray, chest 2016 017 TILD[facility] [employer], [address] [place], [address], 7 14:17:38 Medication Orders Levaquin 500 mg tablet 2016 017 INTERFACE [facility] [employer] [facility] #[id number], [address] [place], [place], [id number], 7 14:48:24 prednisone 10 mg tablet 2016 017 INTERFACE [employer] [facility] #[id number], [address], [place], [phone], 7 14:48:26 Patient TargetsNo targets recorded. Patient InstructionsNo instructions recorded. Reason for Referral None Reported. Results Created Date Observation Date Name Description Value Unit Range Abnormal Flag Note LastModifiedBy Organization Detail LastModifiedTime 07/03/19 17 07/03/2016 x-ray , chest No observ ation record ed. [facility] [address] [place], [address], 07/04/2016 16:23:42 Result Notes None recorded. Procedures Surgical History Date Name Laterality Status Provider Name and Address Organization Details Recorded Time 6 Ekg for initial prevent exam completed Marija [place]man [place] - [facility], [facility] 07/01/2016 14:41:12 6 Chest x-ray 2vw frontal&latl completed Marija [place] [facility], [facility] 07/01/2016 14:41:28 6 Other completed Marija [place] [facility], [facility] 07/01/2016 14:42:03 3 Other completed Marija [place]man [place] - [facility], [facility] 07/01/2016 14:38:53 3 Colonoscopy completed Marija [place] - [facility], [facility] 07/01/2016 14:41:41 1 Other completed Marija Le[place]man [place] - [facility], [facility] 07/01/2016 14:40:20 3 Other completed Marija [place] - [facility], [facility] 07/01/2016 14:38:15 0 Knee surgery completed Marija [place]man [place] - [facility], [facility] 07/01/2016 14:39:09 4 Other completed Marija Le-[place]man [place] - [facility], [facility] 07/01/2016 14:37:46 Imaging Results Imaging Date Name Status LastModified by [facility] Details LastModified Time 07/03/2016 x-ray, chest completed [facility] [address], [place], [address], 07/04/2016 16:23:42 Procedure Notes None recorded. Medical Equipment None Reported. Allergies Allergen ID Allergen Name Allergen Category Reaction Reaction Severity Criticality Documentation Date Start Date Code Code System Note Provider Name and Address Organization Details Recorded Time 086584 erythromy ezra medicatio n Not available Not available Not available 07/01/2016 4053 RxNorm Marija Le-R uiz null, [facility], [facility] 7 14:29:37 [id number] ciproflox acin medicatio n Not available Not available Not available 07/01/2016 2551 RxNorm Marija Le-R uiz null, [facility] 7 14:29:46 [id number] Seroquel medicatio n Not available Not available Not available 07/01/2016 80349 RxNorm Marija Le-R uiz null, [facility] 7 14:29:59 [id number] citalopra m medicatio n Not available Not available Not available 07/01/2016 2556 RxNorm Marija Le-R uiz null, [facility] 7 14:30:09 [id number] Zyprexa medicatio n Not available Not available Not available 07/01/2016 97345 3 RxNorm Marija Le-R uiz null, [facility] 7 14:30:31 [id number] cefixime medicatio n Not available Not available Not available 07/01/2016 58038 RxNorm Marija Le-R uiz null, [facility] 14:30:43 Medications Name Sig Start Date Stop Date Status Note LastModified by Organization Details LastModified Time prednisone 10 mg tablet Take 1 tablet twice a day by oral route for 5 days. 017 active Not Available Not Available Not Avai lable Levaquin 500 mg tablet Take 1 tablet every day by oral route for 10 days. 017 active Not Available Not Available Not Avai lable CellCept active Not Available Not Avai lable Not Available prednisolone active Not Available Not Available Not Available lamotrigine active Not Available Not A vailable Not Available furosemide active Not Available Not Av ailable Not Available amlodipine active Not Available Not Av ailable Not Available tacrolimus active Not Available Not Av ailable Not Available Vitals Date Recorded Body weight Body height Body mass index (BMI) Body temperature Heart rate Respiratory rate Oxygen saturation Oxygen saturation in Arterial blood by Pulse oximetry Systolic blood pressure Diastolic blood pressure Provider Name and Address Organization Details Last Updated DateTime 7 47570.7 1 g 177.8 cm 27.3 kg/m2 99 [degF] 76 /min 16 /min 97 % 97 % 120 mm[Hg] 70 mm[Hg] [email or web address] 7 14:19:29 Social History Question Answer Notes LastModified by [employer] Details LastModified Time Tobacco Smoking Status Never Smoker Marija rodriguez [email or web address] 07/01/2016 14:35:52 Alcohol Use No Information n ot available 07/01/2016 Marital Status Single Informatio n not available 07/01/2016 Sex: Unknown Functional Status Question Answer Note LastModified by [employer] Details LastModified Time What is your exercise level? Occasional Information not available 07/01/2016 Mental Status None recorded. Family History Nothing Reported. Medical History Condition Response Cancer (location) N Other N Gout N Thyroid Disease N Kidney Stones N Emphysema/COPD N Measles/Mumps N Sexually Transmitted Disease N Depression N Prostate Problems N Vascular Disease N Rash/Skin Condition N Amputation (location) N Parkinson's N Paralysis N Cardiac Pacemaker/defibrillator N Headaches/Migraines N Nerve Damage / Neuropathy N Arthritis N Sleep disorder/Insomnia N Heart disease / Heart Attack N Crohn's Disease N HIV/AIDS N Stroke/TIA N Colon Problems N High Cholesterol N Serious Injuries N Kidney Disease Y Memory Loss/Alzheimer's N High blood pressure Y Gallbladder disease N Congestive heart failure N Falls N Hormone Replacement N Blood Thinner Treatment N Alcohol Overuse N Nervous Breakdown N Olvera's Esophagus N Anemia Y Urinary Problems N Colon Polyps N Gastritis N Hospitalizations (other than operations) N Diabetes N Back pain N Rheumatic Fever N Bleeding Disorder N Cardiac Arrhythmias /irregular heart rat e N Osteopenia/Osteoporosis N Anxiety/Stress N Vision Problems N Asthma N Erectile / Sexual Dysfunction N Ostomies (location) N Seizures N Sleep Apnea N Jaundice N Hepatitis N Cirrhosis N GERD/Ulcer N Chicken Pox N Allergies (other than meds) N Immunizations Vaccine Type Date Status Note Provider Nam e and Address Organization Details Recorded Time influenza, unspecified formulation 06/23/2015 completed Marija rodriguez [facility], [facility] 07/01/2016 14:34:59 pneumococcal, unspecified formulation 06/23/2014 completed Marija rodriguez [facility], [facility] 07/01/2016 14:35:14 Past Encounters Encounter ID Performer Location Encounter Start Date Encounter Closed Date Diagnosis/Indication Diagnosis SNOMED-CT Code Diagnosis ICD10 Code Diagnosis Note [id number] Sherwin cash MD [facility] [place] [address] [place] [address] 07/01/2016 13:29:03 07/01/2016 14:50:10 Acute bronchitis 20394009 J20.9 Acute condition, Due to intensity and duration of the symptoms I think patient will benefit with treatment Otitis media 75964351 H6 6.90 Due to duration and intensity of the symptoms plug feeling and pain, patient needs treatment. Health Concerns Section Related Observation LastModified by Organization Detai ls LastModified Time None Recorded Concern Status LastModified by Organization Details LastModified Time None Recorded Advance Directives Directive None Recorded Payers Encounter Date Sequence Insurance Name Policy Number Policy Cheung Covered Member ID Cheung Member ID Guarantor Name 07/01/2016 1 [place] Bruce Singh [id number] Bruce Singh 07/01/2016 2 [employer] MED[employer] PLAN - ADVANTAGE (MEDICARE REPLACEMENT PFFS) [id number] Bruce Singh [id number] Bruce Singh Notes Date Note Type Note Provider Name and Address Organization Details Recorded Time 07/01/2016 text/html Cough / ColdReported bypatient.Reason for visit:acute complaint Quality:productive; paroxysmal;wheezy Sputum Quality:green Severity:severe;wor se Onset/Timin weeks ago Alleviating factors:nothing helps Associated Symptoms:congestion ;cold/flu like symptoms; Head and sinus congestionEar PainReported bypatient.Reason for visit:acute complaint Location:right ear Quality:achy; Fells fluid inside Severity:moderate; unchanged Duration:constant Onset/Timing:abrupt ;3 weeks ago Context:recent exposure to ill contacts; no recent swimming; no recent air travel; no recent scuba diving Alleviating factors:nothing Aggravating factors:nothing Associated Symptoms:no exudates; no jaw pain; no head congestion; no fatigue Sherwin saleem MD [address] [address], [place], [address], [facility], [facility] 07/01/2016 14:51:23
--- OUTSIDE RECORDS SUMMARY | 2024-10-11 14:37 | XMS_ITS | Encounter Summary ---
Author Organization [place] Address [address] [place] [address]. [place] [address] Care Team Providers Care Computer Repair Technician Name Role Phone Sánchez Kowalski APRN WOOD TURNER Unavailable Marlen Esposito MD Unavailable [phone] Unavailable Unavail able Karen Steel Unavailable Marlen Esposito MD Unavailable Karen Steel Unavailable Sánchez Kowalski APRN WOOD TURNER Unavailable Patricia Willoughby RD Unavailable Unavail able Ryan Cole MD Primary Care Provider Marlen Esposito MD Unavailable [phone] Barbara Valdes MD Unavailable [phone] Encounter Details Date Type Department Care Team (Late st Contact Info) Description 07/21/2023 [facility] [address] [place] [address] Linnea Graff, RN Social History [...] AM CDT 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 Gender Identity Male 03/27/2023 11:48 AM CDT Sexual Orientation Not on file documented as of this encounter Plan of Treatment Not on file documented as of this encounter Visit Diagnoses Not on filedocumented in this encounter Additional Health Concerns Infection Onset Date Last Indicated Resolved Time Rule Out C-difficile 11/15/2023 11/15/2023 024 6:15 PM CDT documented as of this encounter Care Teams Computer Repair Technician Relationship Specialty Start Date End Date Ryan Cole MD [address] [place] [address] PCP - General 06/02/23 Sánchez Kowalski, RAMONA WOOD TURNER [address] [place] [address] [phone] Nurse Practitioner Nephrology 04/11/23 Marlen Esposito MD [address] [place] [address] [id number] Surgery 04/11/[address] [place] [address] Registered Dietitian Dietitian, Registered 04/11/23 Karen Steel CHIEF OF HOSPITAL MEDICINE Cdl Dedicated Truck Driver 04/11/23 Marlen Esposito MD [address] [place] [address] [id number] Surgery 05/21/23 Karen Steel LICSW [employer]dl Dedicated Truck Driver 05/21/23 Sánchez Kowalski APRN WOOD TURNER [address] [place], [place] [address] Nurse Practitioner Nephrology 05/21/[address] [facility] [address] [facility] [address] [place] [address] Registered Dietitian Dietitian, Registered 05/21/23 Marlen Esposito MD [address] [place] [address] Assigned Surgical Provider 06/21/23 10/13/23 Barbara Valdes MD [address] [facility] [address] [place] [address] Assigned Surgical Provider 10/14/23 documented as of this encounter
--- NOTE | 2024-10-11 15:04 | ED.GENADULT ---
HPI - General Adult General Chief complaint: Fever Stated complaint: Short of breath Time Seen by Provider: 10/11/24 14:59 History of Present Illness HPI narrative: Arrives with complaints of fever and chills that started today during his dialysis run, reports his temperature there as being 102 F. Also has had a recent cough and some SOB. Is alert and oriented, somewhat dyspneic and tachypneic during triage, ABCs intact at this time. 69-year-old man presenting to the emergency department with concern of chills and measured fever during dialysis at 102?... Or least nearly so. He feels a little more short of breath than his usual baseline. Is a renal transplant recipient and on immunosuppression in addition to having renal failure and on dialysis. History of retroperitoneal hematoma. No noted particular exposures. He does make a little urine. No abdominal pain. No chest pain. Current antirejection drugs include Imuran, prednisone and belatacept infusions Related Data Home Medications ?Medication ?Instructions ?Recorded ?Confirmed albuterol sulfate 90 mcg/actuation 2 puff inhalation Q6H PRN 03/29/22 10/11/24 aerosol inhaler aspirin 81 mg tablet,delayed 81 mg PO QDAY 03/29/22 10/11/24 release (Adult Low Dose Aspirin) atorvastatin 10 mg tablet 10 mg PO QDAY 03/29/22 10/11/24 azelastine 137 mcg (0.1 %) nasal 1 spray intranasal BID 03/29/22 10/11/24 spray budesonide 0.25 mg/2 mL suspension 0.5 mg inhalation QDAY 03/29/22 10/11/24 for nebulization (Pulmicort) coenzyme Q10 100 mg capsule 100 mg PO QDAY 03/29/22 10/11/24 fluticasone fur. 200 mcg-umeclid 1 inh inhalation QDAY 03/29/22 10/11/24 62.5 mcg-vilant 25 mcg inhalat.powder (Trelegy Ellipta) ipratropium bromide 21 mcg (0.03 2 spray intranasal BID 03/29/22 10/11/24 %) nasal spray lamotrigine 200 mg tablet 200 mg PO BID 03/29/22 10/11/24 (Lamictal) levothyroxine 25 mcg capsule 25 mcg PO QDAY 03/29/22 10/11/24 loratadine 10 mg tablet 10 mg PO QDAY 03/29/22 10/11/24 montelukast 10 mg tablet 10 mg PO QDAY 03/29/22 10/11/24 (Singulair) mycophenolate mofetil 500 mg 500 mg PO Q12H 03/29/22 10/11/24 tablet (CellCept) nifedipine 30 mg tablet,extended 30 mg PO QDAY 03/29/22 10/11/24 release 24 hr (Procardia XL) prednisone 5 mg tablet 5 mg PO QDAY 03/29/22 10/11/24 tacrolimus 0.5 mg capsule, 1.5 mg PO Q12H 03/29/22 10/11/24 immediate-release (Prograf) torsemide 10 mg tablet 10 mg PO QAM 03/29/22 10/11/24 trazodone 100 mg tablet 100 mg PO QDAY 03/29/22 10/11/24 voriconazole 200 mg tablet (Vfend) 200 mg PO Q12H 03/29/22 10/11/24 Previous Rx's ?Medication ?Instructions ?Recorded gabapentin 100 mg capsule See Rx Instructions .Route 02/14/23 .COMPLEX #20 caps Allergies Allergy/AdvReac Type Severity Reaction Status Date / Time cefixime Allergy Intermediate Diarrhea Verified 10/11/24 14:49 quetiapine Allergy Intermediate Edema Verified 10/11/24 14:49 ciprofloxacin Allergy Unknown Verified 10/11/24 14:49 citalopram Allergy Unknown Verified 10/11/24 14:49 Review of Systems Status of ROS: Reports: 6 or more systems reviewed and unremarkable except as noted in History and below PFSH PFSH Social History Smoking Status: Former smoker Do you use any of these nicotine containing products: None Second hand tobacco smoke exposure: No How often do you have a drink containing alcohol: never How often do you have six or more drinks on one occasion: Never AUDIT-C Alcohol total score: 0 Non-prescribed substance use: denies use service: No Exam Narrative: Exam Narrative: Pleasant. Of good energy. Skin is darkly complected and quite warm. Light intradermal bruising at the right upper chest/clavicle. Lungs actually sound to be clear. Heart in regular rate and rhythm. Abdomen is soft nontender. Has a brace on the right ankle with trace pretibial edema. Const: Vital Signs, click to edit/add: Vital Signs - 24 hr 10/11/24 14:52 10/11/24 15:45 10/11/24 15:50 Temperature 99.8 F H Pulse Rate [Pulse Oximeter] 88 Pulse Rate [Right Pulse Oximeter] Respiratory Rate 24 Blood Pressure [Le ft Arm] Blood Pressure [Le ft Upper Arm] 149/71 H Pulse Oximetry 99 100 100 Oxygen Delivery Me thod Room Air 10/11/24 15:59 10/11/24 16:00 10/11/24 16:10 Temperature 99.8 F H Pulse Rate [Pulse Oximeter] Pulse Rate [Right Pulse Oximeter] 88 Respiratory Rate 26 H Blood Pressure [Le ft Arm] 149/71 H Blood Pressure [Le ft Upper Arm] Pulse Oximetry 100 98 100 Oxygen Delivery Me thod Room Air 10/11/24 16:20 10/11/24 16:30 10/11/24 16:40 Temperature Pulse Rate [Pulse Oximeter] Pulse Rate [Right Pulse Oximeter] Respiratory Rate Blood Pressure [Le ft Arm] Blood Pressure [Le ft Upper Arm] Pulse Oximetry 98 100 100 Oxygen Delivery Me thod 10/11/24 16:41 10/11/24 16:50 10/11/24 17:00 Temperature Pulse Rate [Pulse Oximeter] Pulse Rate [Right Pulse Oximeter] Respiratory Rate Blood Pressure [Le ft Arm] Blood Pressure [Le ft Upper Arm] Pulse Oximetry 96 96 100 Oxygen Delivery Me thod Documenting provider has reviewed patient's vital signs: yes Course Vital Signs Vital signs: Initial Vital Signs Temperature 99.8 F H 10/11/24 14:52 Temperature Source Temporal Artery Scan 10/11/24 14:52 Pulse Rate 88 10/11/24 14:52 Respiratory Rate 10/11/24 14:52 Blood Pressure 149/71 H 10/11/24 14:52 Blood Pressure Mean 97 10/11/24 14:52 Pulse Oximetry 99 10/11/24 14:52 Oxygen Delivery Method Room Air 10/11/24 14:52 Vital Signs Temperature 99.8 F H 10/11/24 14:52 Pulse Rate 88 10/11/24 14:52 Respiratory Rate 24 10/11/24 14:52 Blood Pressure 149/71 H 10/11/24 14:52 Pulse Oximetry 99 10/11/24 14:52 Oxygen Delivery Method Room Air 10/11/24 14:52 Temperature 99.8 F H 10/11/24 15:59 Pulse Rate 88 10/11/24 15:59 Respiratory Rate 26 H 10/11/24 15:59 Blood Pressure 149/71 H 10/11/24 15:59 Pulse Oximetry 100 10/11/24 17:00 Oxygen Delivery Method Room Air 10/11/24 15:59 Medications Administered Medications: Discontinued Medications Generic Name Dose Route Start Last Admin Trade Name Kassidy PRN Reason Stop Dose Admin Acetaminophen 1,000 mg 10/11/24 15:14 10/11/24 15:56 Acetaminophen 500 Mg Tablet PO 10/11/24 15:15 1,000 mg ONCE ONE Administration Medical Decision Making MDM Narrative Medical decision making narrative: Complicated history of requiring investigation of cause of fever. Fever might be partially driving tachypnea. Swabs for COVID and influenza are pending. Would recheck labs only in that will need to collect blood cultures here. Check lactate. See if we can obtain some urine. Monitor for evidence of sepsis. None yet other than reported temperature. COVID returns positive Chest x-ray independently reviewed by me is without clear infiltrate. Labs appeared similar in June of 2022 when was last diagnosed with COVID. Alkalotic vbgs - related to tachypnea? Post dialysis? Lactate 2.7 Radiology over-read of chest x-ray as below INDICATION: FEVER, CHRONIC DYSPNEA. TECHNIQUE: Chest 2 views. COMPARISON: Chest radiographs dated 03/31/2023. FINDINGS: Unremarkable cardiomediastinal contours. No evident focal lung consolidation. No sign of pleural effusion. No pneumothorax. No acute osseous or soft tissue findings. IMPRESSION: No evident focal lung consolidation. Dictated by He Lim MD @ 10/11/2024 4:01:07 PM This might be difficult to treat partly as we do not carry remdesivir here any more. Would like to hydrate as well however will also need dialysis. I have spoke with hepatology about treating COVID in light of liver transplant and renal failure and current antirejection drugs. They would be okay with Paxlovid without any dosing adjustments to antirejection drugs or Paxlovid. Admittedly remdesivir also would be good. Pending conversation with Nephrology at this point. There also is a COVID team at [facility] that might be worth consulting with. Temperature is improved on reassessment. Remains with good energy. Tachypneic. Signing off at change of shift. Medical Records Medical records reviewed: Yes I reviewed the patient's medical records Lab Data Lab results reviewed: Yes I reviewed the patient's lab results Labs: Lab Results 10/11/24 10/11/24 Range/Units 15:00 15:48 WBC 3.87 L (4.50-11.00) K/uL RBC 3.31 L (4.30-5.90) m/uL Hgb 11.2 L (13.5-17.5) gm/dL Hct 33.5 L (37.0-53.0) % MCV 101 H (80-100) fL MCH 34 (26-34) pg MCHC 33 (32-36) gm/dL RDW Coeff of Hilda 16.0 H (11.5-15.5) % Plt Count 208 (140-440) K/uL Neut % (Auto) 66.1 (42.0-72.0) % Lymph % (Auto) 17.8 L (20-44) % [place] % (Auto) 15.5 H (0.0-11.0) % Eos % (Auto) 0.0 (0.0-7.0) % Baso % (Auto) 0.3 (0.0-3.0) % Neut # (Auto) 2.60 (1.7-7.0) K/uL Lymph # (Auto) 0.70 L (0.90-2.90) K/uL [place] # (Auto) 0.60 (0.00-0.90) K/UL Eos # (Auto) 0.00 (0.00-0.50) K/uL Baso # (Auto) 0.00 (0.00-0.30) K/uL Abs Immat Gran (auto) 0.00 (0.00-0.30) K/uL Imm/Tot Granulo (auto) 0.3 % VBG pH 7.764 H* (7.32-7.43) VBG pCO2 20 L (40-50) mmHG VBG pO2 43.8 (25-47) mmHG VBG HCO3 29 H (21-28) mmol/L Sodium 133 L (135-149) mmol/L Potassium 3.9 (3.6-5.1) mmol/L Chloride 92 L (96-114) mmol/L Carbon Dioxide 29 (20-32) mmol/L Anion Gap 12 (7-15) mEq/L BUN 25 (7-30) mg/dL Creatinine 3.4 H (0.5-1.5) mg/dL Estimated Creat Clear 20.02 Estimated GFR 19 ml/min Glucose 97 (60-115) mg/dL Lactate 2.7 H (0.5-1.9) mmol/L Calcium 9.1 (8.4-10.6) mg/dL C-Reactive Protein 2.8 H (0.5-1.0) mg/dL SARS-CoV-2 (PCR) POSITIVE SARS-CoV-2 A (Negative) Influenza Type A (PCR) Negative PCR FLU A (Negative) Influenza Type B (PCR) Negative PCR FLU B (Negative) RSV (PCR) Negative PCR RSV (Negative) Discharge Plan Discharge Clinical Impression: COVID-19 Prescriptions: No Action albuterol sulfate 90 mcg/actuation HFA aerosol inhaler 2 puff inhalation Q6H PRN aspirin [Adult Low Dose Aspirin] 81 mg tablet,delayed release (DR/EC) 81 mg PO QDAY atorvastatin 10 mg tablet 10 mg PO QDAY azelastine 137 mcg (0.1 %) aerosol,spray 1 spray intranasal BID Rx Instructions: administer into each nostril budesonide [Pulmicort] 0.25 mg/2 mL suspension for nebulization 0.5 mg inhalation QDAY coenzyme Q10 100 mg capsule 100 mg PO QDAY ipratropium bromide 21 mcg (0.03 %) spray,non-aerosol 2 spray intranasal BID Rx Instructions: administer into each nostril lamotrigine [Lamictal] 200 mg tablet 200 mg PO BID levothyroxine 25 mcg capsule 25 mcg PO QDAY loratadine 10 mg tablet 10 mg PO QDAY montelukast [Singulair] 10 mg tablet 10 mg PO QDAY mycophenolate mofetil [CellCept] 500 mg tablet 500 mg PO Q12H nifedipine [Procardia XL] 30 mg tablet extended release 24hr 30 mg PO QDAY prednisone 5 mg tablet 5 mg PO QDAY tacrolimus [Prograf] 0.5 mg capsule 1.5 mg PO Q12H torsemide 10 mg tablet 10 mg PO QAM trazodone 100 mg tablet 100 mg PO QDAY Trelegy Ellipta 200-62.5-25 mcg blister with device 1 inh inhalation QDAY voriconazole [Vfend] 200 mg tablet 200 mg PO Q12H Rx Instructions: administer on empty stomach, at least 1 hour before or after meal(s) gabapentin 100 mg capsule See Rx Instructions .ROUTE .COMPLEX Qty: 20 0RF Rx Instructions: 100 mg orally every other day after dialysis. Follow Up/Referrals: Ryan Cole MD [Primary Care Provider] -
--- NOTE | 2024-10-11 15:14 | CRLHL7_ITS ---
For Patients: As a result of the Century Cures Act, medical imaging exams and procedure reports are released immediately into your electronic medical record. You may view this report before your referring provider. If you have questions, please contact your health care provider. INDICATION: FEVER, CHRONIC DYSPNEA. TECHNIQUE: Chest 2 views. COMPARISON: Chest radiographs dated 03/31/2023. FINDINGS: Unremarkable cardiomediastinal contours. No evident focal lung consolidation. No sign of pleural effusion. No pneumothorax. No acute osseous or soft tissue findings. IMPRESSION: No evident focal lung consolidation. Dictated by He Lim MD @ 10/11/2024 4:01:07 PM (Electronically Signed)
--- OUTSIDE RECORDS SUMMARY | 2024-10-11 15:37 | XMS_ITS | Encounter Summary ---
Author Organization [facility] Address [address] [place] [address]. [place] [address] Care Team Providers Care Wildlife And Game Protector Name Role Phone Sánchez Kowalski APRN FLEET 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 Unavailable Marlen Esposito MD Unavailable [phone] Unavailable Unavail able Karen Steel Unavailable Marlen Esposito MD Unavailable [phone] Karen Steel Unavailable [phone] Sánchez Kowalski APRN FLEET 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 Unavailable [phone] Unavailable Unavail able Ryan Cole MD Primary Care Provider [phone] Marlen Esposito MD Unavailable [phone] Barbara Valdes MD Unavailable [phone] Encounter Details Date Type Department Care Team (Late st Contact Info) Description 06/18/2023 Orders Only [facility] [address] [place] [address] Outside, Provider Social History Tobacco Use Types [...] AM CDT 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 Gender Identity Male 03/27/2023 11:48 AM CDT Sexual Orientation Not on file documented as of this encounter Plan of Treatment Not on file documented as of this encounter Procedures Procedure Name Priority Date/Time Associated Diagnosis Comments HLA RESULT REPORT 06/18/2023 1:05 PM FAMILY LAW MEDIATOR HLA RESULT REPORT 06/18/2023 1:05 PM FAMILY LAW MEDIATOR documented in this encounter Results * HLA RESULT REPORT (06/18/2023 1:05 PM FAMILY LAW MEDIATOR) us Provider Outside LAB - IMMUNOLOGY ORDERABLES Fin al Result * HLA RESULT REPORT (06/18/2023 1:05 PM FAMILY LAW MEDIATOR) us Provider Outside LAB - IMMUNOLOGY ORDERABLES Fin al Result documented in this encounter Visit Diagnoses Not on filedocumented in this encounter Additional Health Concerns Infection Onset Date Last Indicated Resolved Time Rule Out C-difficile 11/15/2023 11/15/2023 024 6:15 PM CDT documented as of this encounter Care Teams Wildlife And Game Protector Relationship Specialty Start Date End Date Ryan Cole MD [address] [place] [address] PCP - General 06/02/23 Sánchez Kowalski APRN FLEET 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 [address] [place] [address] [id number] Nurse Practitioner Nephrology 04/11/23 Marlen Esposito MD [address] [place] [address] [id number] Surgery 04/11/[address] [place] [address] Registered Dietitian Dietitian, Registered 04/11/23 Karen Steel [facility] Instructor Of Nursing 04/11/23 Marlen Esposito MD [address] [place] [address] 13554 Surgery 05/21/23 Karen Steel [facility] Instructor Of Nursing 05/21/23 Sánchez Kowalski APRN FLEET 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 [address] [place] [address] 34168 Nurse Practitioner Nephrology 05/21/[address] [facility] 420 [facility] 84 [place] [address] Registered Dietitian Dietitian, Registered 05/21/23 Marlen Esposito MD [address] [place] [address] 97795 Assigned Surgical Provider 06/21/23 10/13/23 Barbara Valdes MD 6 [facility] 2A [place] [address] Assigned Surgical Provider 10/14/23 documented as of this encounter
--- OUTSIDE RECORDS SUMMARY | 2024-10-11 15:37 | XMS_ITS | Encounter Summary ---
Author Organization [facility] Address [address] [place] [address]. [place] [address] Care Team Providers Care Motor Tester Name Role Phone Sánchez Kowalski APRN ELEPHANT KEEPER Unavailable Marlen Esposito MD Unavailable [phone] Unavailable Unavail able Karen Steel Unavailable Marlen Esposito MD Unavailable Karen Steel Unavailable Sánchez Kowalski APRN ELEPHANT KEEPER Unavailable Patricia Willoughby RD Unavailable Unavail able Ryan Cole MD Primary Care Provider Marlen Esposito MD Unavailable [phone] Barbara Valdes MD Unavailable [phone] Encounter Details Date Type Department Care Team (Late st Contact Info) Description 09/10/2023 [facility] [address] [place] [address] Linnea Graff, RN Social History [...] AM CDT 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 CLERK Heat Transfer Technician 04/11/23 Marlen Esposito MD [address] [place] [address] [phone] Surgery 05/21/23 Karen Steel LICSW Heat Transfer Technician 05/21/23 Sánchez Kowalski APRN ELEPHANT KEEPER 9 [place], [place] 383375 Nurse Practitioner Nephrology 05/21/[address] [facility] 420 [facility] 84 [place] [address] Registered Dietitian Dietitian, Registered 05/21/23 Marlen Esposito MD [address] [place] [address] 68068 Assigned Surgical Provider 06/21/23 10/13/23 Barbara Valdes MD 6 [facility] [address] [place] [address] Assigned Surgical Provider 10/14/23 documented as of this encounter
--- OUTSIDE RECORDS SUMMARY | 2024-10-11 15:37 | XMS_ITS | Encounter Summary ---
Author Organization [facility] Address [address] [place] [address]. [place] [address] Care Team Providers Care Circulation Analyst Name Role Phone Sánchez Kowalski APRN AESTHETICS INSTRUCTOR Unavailable Marlen Esposito MD Unavailable Patricia Willoughby RD Unavailable Unavail able Karen Steel Unavailable [phone] Marlen Esposito MD Unavailable [phone] Karen Steel Unavailable Sánchez Kowalski APRN AESTHETICS INSTRUCTOR Unavailable [phone] Unavailable Unavail able Ryan Cole MD Primary Care Provider Marlen Esposito MD Unavailable [phone] Barbara Valdes MD Unavailable [phone] Encounter Details Date Type Department Care Team (Late st Contact Info) Description 06/20/2023 [facility] [address] [place] [address] Linnea Graff, RN Social History [...] AM CDT 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 Gender Identity Male 03/27/2023 11:48 AM CDT Sexual Orientation Not on file documented as of this encounter Plan of Treatment Not on file documented as of this encounter Visit Diagnoses Not on filedocumented in this encounter Additional Health Concerns Infection Onset Date Last Indicated Resolved Time Rule Out C-difficile 11/15/2023 11/15/2023 024 6:15 PM CDT documented as of this encounter Care Teams Circulation Analyst Relationship Specialty Start Date End Date Ryan Cole MD [address] [place] [address] PCP - General 06/02/23 Sánchez Kowalski, RAMONA AESTHETICS INSTRUCTOR [address] [place] [address] [phone] Nurse Practitioner Nephrology 04/11/23 Marlen Esposito MD [address] [place] [address] [phone] Surgery 04/11/[address] 84 [place] [address] Registered Dietitian Dietitian, Registered 04/11/23 Karen Steel CNA Director Of Maintenance 04/11/23 Marlen Esposito MD [address] [place] [address] [phone] Surgery 05/21/23 Karen Steel LICSW Director Of Maintenance 05/21/23 Sánchez Kowalski APRN AESTHETICS INSTRUCTOR 9 [place], [place] 165825 Nurse Practitioner Nephrology 05/21/[address] [facility] 420 [facility] 84 [place] [address] Registered Dietitian Dietitian, Registered 05/21/23 Marlen Esposito MD [address] [place] [address] 70181 Assigned Surgical Provider 06/21/23 10/13/23 Barbara Valdes MD 6 [facility] 2A [place] [address] Assigned Surgical Provider 10/14/23 documented as of this encounter
--- OUTSIDE RECORDS SUMMARY | 2024-10-11 15:37 | XMS_ITS | Encounter Summary ---
Author Organization [facility] Address [address] [place] [address]. [place] [address] Care Team Providers Care Pairer Inspector Name Role Phone Sánchez Kowalski APRN BEAD WIRE TAPER Unavailable Marlen Esposito MD Unavailable [phone] Unavailable Unavail able Karen Steel Unavailable [phone] Marlen Esposito MD Unavailable Karen Steel Unavailable Sánchez Kowalski APRN BEAD WIRE TAPER Unavailable [phone] Unavailable Unavail able Ryan Cole MD Primary Care Provider Marlen Esposito MD Unavailable [phone] Barbara Valdes MD Unavailable [phone] Encounter Details Date Type Department Care Team (Late st Contact Info) Description 06/13/2023 Documentation Only [facility] [address] [place] [address] Scan, Non-Provider Social History Tobacco [...] AM CDT Legal 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 Gender Identity Male 03/27/2023 11:48 AM CDT Sexual Orientation Not on file documented as of this encounter Plan of Treatment Not on file documented as of this encounter Visit Diagnoses Not on filedocumented in this encounter Additional Health Concerns Infection Onset Date Last Indicated Resolved Time Rule Out C-difficile 11/15/2023 11/15/2023 024 6:15 PM CDT documented as of this encounter Care Teams Pairer Inspector Relationship Specialty Start Date End Date Ryan Cole MD [address] [place] [address] PCP - General 06/02/23 Sánchez Kowalski APRN BEAD WIRE TAPER [address] [place] [address] [phone] Nurse Practitioner Nephrology 04/11/23 Marlen Esposito MD [address] [place] [address] [phone] Surgery 04/11/[address] [place] [address] Registered Dietitian Dietitian, Registered 04/11/23 Karen Steel DRIVER LICENSE AGENT Retail Merchandising Specialist 04/11/23 Marlen Esposito MD [address] [place] [address] [phone] Surgery 05/21/23 Karen Steel LICSW Retail Merchandising Specialist 05/21/23 Sánchez Kowalski APRN BEAD WIRE TAPER 9 [place], [place] 246925 Nurse Practitioner Nephrology 05/21/[address] [facility] 420 [facility] 84 [place] [address] Registered Dietitian Dietitian, Registered 05/21/23 Marlen Esposito MD [address] [place] [address] 27545 Assigned Surgical Provider 06/21/23 10/13/23 Barbara aVldes MD 6 [facility] 2A [place] [address] Assigned Surgical Provider 10/14/23 documented as of this encounter
--- OUTSIDE RECORDS SUMMARY | 2024-10-11 15:37 | XMS_ITS | Encounter Summary ---
Author Organization [facility] Address [address] [place] [address]. [place] [address] Care Team Providers Care Medical Records Technician Name Role Phone Sánchez Kowalski APRN COMMERCIAL TRAILER TRUCK DRIVER Unavailable Marlen Esposito MD Unavailable Patricia Willoughby RD Unavailable Unavail able Karen Steel Unavailable Marlen Esposito MD Unavailable [phone] Karen Steel Unavailable Sánchez Kowalski APRN COMMERCIAL TRAILER TRUCK DRIVER Unavailable Patricia Willoughby RD Unavailable Unavail able Ryan Cole MD Primary Care Provider Marlen Esposito MD Unavailable [phone] Barbara Valdes MD Unavailable [phone] Encounter Details Date Type Department Care Team (Late st Contact Info) Description 07/27/2023 [facility] [address] [place] [address] Linnea Graff, RN Social History [...] AM CDT Legal 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 WASHERY ENGINEER Gender Identity Male 03/27/2023 11:48 AM [...] as of this encounter Care Teams Medical Records Technician Relationship Specialty Start Date End Date Ryan Cole MD [address] [place] [address] PCP - General 06/02/23 Sánchez Kowalski, RAMONA COMMERCIAL TRAILER TRUCK DRIVER [address] [place] [address] [phone] Nurse Practitioner Nephrology 04/11/23 Marlen Esposito MD [address] [place] [address] [phone] Surgery 04/11/[address] 84 [place] [address] Registered Dietitian Dietitian, Registered 04/11/23 Karen Steel MOVIE PRODUCER Machine Splitter 04/11/23 Marlen Esposito MD [address] [place] [address] [phone] Surgery 05/21/23 Karen Steel LICSW Machine Splitter 05/21/23 Sánchez Kowalski APRN COMMERCIAL TRAILER TRUCK DRIVER 9 [place], [place] 323285 Nurse Practitioner Nephrology 05/21/[address] [facility] 420 [facility] 84 [place] [address] Registered Dietitian Dietitian, Registered 05/21/23 Marlen Esposito MD [address] [place] [address] 00398 Assigned Surgical Provider 06/21/23 10/13/23 Barbara Valdes MD 6 [facility] 2A [place] [address] Assigned Surgical Provider 10/14/23 documented as of this encounter
--- OUTSIDE RECORDS SUMMARY | 2024-10-11 15:37 | XMS_ITS | Encounter Summary ---
Author Organization [facility] Address [address] [place] [address]. [place] [address] Care Team Providers Care Slab Conditioner Supervisor Name Role Phone Sánchez Kowalski APRN CULLET CRUSHER AND WASHER Unavailable Marlen Esposito MD Unavailable [phone] Unavailable Unavail able Karen Steel Unavailable Marlen Esposito MD Unavailable Karen Steel Unavailable Sánchez Kowalski APRN CULLET CRUSHER AND WASHER Unavailable Patricia Willoughby RD Unavailable Unavail able Ryan Cole MD Primary Care Provider [phone] Marlen Esposito MD Unavailable [phone] Barbara Valdes MD Unavailable [phone] Encounter Details Date Type Department Care Team (Late st Contact Info) Description 08/13/2023 [facility] [place] [facility] [address] [place] [address] Linnea Graff, RN Social History [...] AM CDT Legal 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 RN ORTHO Gender Identity Male 03/27/2023 11:48 AM CDT Sexual Orientation Not on file documented as of this encounter Plan of Treatment Not on file documented as of this encounter Visit Diagnoses Not on filedocumented in this encounter Additional Health Concerns Infection Onset Date Last Indicated Resolved Time Rule Out C-difficile 11/15/2023 11/15/2023 024 6:15 PM CDT documented as of this encounter Care Teams Slab Conditioner Supervisor Relationship Specialty Start Date End Date Ryan Cole MD [address] [place] [address] PCP - General 06/02/23 Sánchez Kowalski, RAMONA CULLET CRUSHER AND WASHER [address] [place] [address] [id number] Nurse Practitioner Nephrology 04/11/23 Marlen Esposito MD [address] [place] [address] [phone] Surgery 04/11/[address] [place] [address] Registered Dietitian Dietitian, Registered 04/11/23 Karen Setel GLOBAL LOGISTICS MANAGER Wind Farm Designer 04/11/23 Marlen Esposito MD [address] [place] [address] [phone] Surgery 05/21/23 Karen Steel LICSW Wind Farm Designer 05/21/23 Sánchez Kowalski APRN CULLET CRUSHER AND WASHER 9 [place], [place] 986625 Nurse Practitioner Nephrology 05/21/[address] [facility] 420 [facility] 84 [place] [address] Registered Dietitian Dietitian, Registered 05/21/23 Marlen Esposito MD [address] [place] [address] 74849 Assigned Surgical Provider 06/21/23 10/13/23 Barbara Valdes MD 6 [facility] 2A [place] [address] Assigned Surgical Provider 10/14/23 documented as of this encounter
--- OUTSIDE RECORDS SUMMARY | 2024-10-11 15:37 | XMS_ITS | Encounter Summary ---
Author Organization [facility] Address [address] [place] [address]. [place] [address] Care Team Providers Care Honeycomb Blanket Maker Name Role Phone Sánchez Kowalski APRN POLYTECHNIC TEACHER Unavailable Marlen Esposito MD Unavailable Patricia Willoughby RD Unavailable Unavail able Karen Steel Unavailable [phone] Marlen Esposito MD Unavailable [phone] Karen Steel Unavailable [phone] Sánchez Kowalski APRN POLYTECHNIC TEACHER Unavailable Patricia Willoughby RD Unavailable Unavail able Ryan Cole MD Primary Care Provider [phone] Marlen Esposito MD Unavailable [phone] Barbara Valdes MD Unavailable [phone] Encounter Details Date Type Department Care Team (Late st Contact Info) Description 07/21/2023 [facility] [address] [place] [address] Linnea Graff, RN Social [...] AM CDT Legal 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 RESIDENTIAL SUPPORT SPECIALIST Gender Identity Male 03/27/2023 11:48 [...] documented as of this encounter Care Teams Honeycomb Blanket Maker Relationship Specialty Start Date End Date Ryan Cole MD [address] [place] [address] PCP - General 06/02/23 Sánchez Kowalski, RAMONA POLYTECHNIC TEACHER [address] [place] [address] 190745 Nurse Practitioner Nephrology 04/11/23 Marlen Esposito MD [address] [place] [address] [phone] Surgery 04/11/[address] [place] [address] Registered Dietitian Dietitian, Registered 04/11/23 Karen Steel BRAIDER OPERATOR Etiology Teacher 04/11/23 Marlen Esposito MD [address] [place] [address] [phone] Surgery 05/21/23 Karen Steel LICSW Etiology Teacher 05/21/23 Sánchez Kowalski APRN POLYTECHNIC TEACHER 9 [place], [place] 591585 Nurse Practitioner Nephrology 05/21/[address] [facility] 420 [facility] 84 [place] [address] Registered Dietitian Dietitian, Registered 05/21/23 Marlen Esposito MD [address] [place] [address] 91094 Assigned Surgical Provider 06/21/23 10/13/23 Barbara Valdes MD 6 [facility] 2[address] [place] [address] Assigned Surgical Provider 10/14/23 documented as of this encounter
--- OUTSIDE RECORDS SUMMARY | 2024-10-11 15:37 | XMS_ITS | Encounter Summary ---
Author Organization [facility] Address [address] [place] [address] Care Team Providers Care Medical Science Liaison Name Role Phone Sánchez Kowalski APRN FILM WRITER Unavailable Marlen Esposito MD Unavailable [phone] Unavailable Unavail able Karen Steel Unavailable Marlen Esposito MD Unavailable [phone] Karen Steel Unavailable Sánchez Kowalski APRN FILM WRITER Unavailable Patricia Willoughby RD Unavailable Unavail able Ryan Cole MD Primary Care Provider [phone] Marlen Esposito MD Unavailable Barbara Valdes MD Unavailable Encounter Details Date Type Department Care Team (Late st Contact Info) Description 06/06/2023 [facility] [address] [place] [address] Sánchez Kowalski APRN FILM WRITER [address] [place] [address] Social History Tobacco Use Types [...] AM CDT Legal 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 VICE PRESIDENT OF OPERATIONS Gender Identity Male 03/27/2023 11:48 AM CDT Sexual Orientation Not on file documented as of this encounter Plan of Treatment Not on file documented as of this encounter Visit Diagnoses Not on filedocumented in this encounter Additional Health Concerns Infection Onset Date Last Indicated Resolved Time Rule Out C-difficile 11/15/2023 11/15/2023 024 6:15 PM CDT documented as of this encounter Care Teams Medical Science Liaison Relationship Specialty Start Date End Date Ryan Cole MD [address] [place] [address] PCP - General 06/02/23 Sánchez Kowalski, CALENDER LET OFF HELPER FILM WRITER [address] [place] [address] [phone] Nurse Practitioner Nephrology 04/11/23 Marlen Esposito MD [address] [place] [address] [phone] Surgery 04/11/[address] [place] [address] Registered Dietitian Dietitian, Registered 04/11/23 Karen Steel, MACHINE HOSTLER Healthcare Social Worker 04/11/23 Marlen Esposito MD [address] [place] [address] [phone] Surgery 05/21/23 Karen Steel MACHINE HOSTLER Healthcare Social Worker 05/21/23 Sánchez Kowalski APRN [facility] [address] [place] [address] 73872 Nurse Practitioner Nephrology 05/21/[address] [facility] 420 [facility] 84 [place] [address] Registered Dietitian Dietitian, Registered 05/21/23 Marlen Esposito MD [address] [place] [address] [phone] Assigned Surgical Provider 06/21/23 10/13/23 Barbara Valdes MD [address] [place] [address] 65[address] Assigned Surgical Provider 10/14/23 documented as of this encounter
--- OUTSIDE RECORDS SUMMARY | 2024-10-11 15:37 | XMS_ITS | Encounter Summary ---
Author Organization [facility] Address [address] [place] [address]. [place] [address] Care Team Providers Care Real Estate Attorney Name Role Phone Sánchez Kowalski APRN [employer]OD [employer]ODUCTS Unavailable Marlen Esposito MD Unavailable [phone] Unavailable Unavail able Karen Steel Unavailable Marlen Esposito MD Unavailable Karen Steel Unavailable Sánchez Kowalski APRN M[employer]ODUCTS Unavailable Patricia Willoughby RD Unavailable Unavail able Ryan Cole MD Primary Care Provider Marlen Esposito MD Unavailable [phone] Barbara Valdes MD Unavailable [phone] Encounter Details Date Type Department Care Team (Late st Contact Info) Description 09/01/2023 [facility] [address] [place] [address] Linnea Graff, RN Social History [...] AM CDT Legal 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 LINEN ROOM SUPERVISOR Gender Identity Male 03/27/2023 11:48 AM [...] of this encounter Care Teams Real Estate Attorney Relationship Specialty Start Date End Date Ryan Cole MD [address] [place] [address] PCP - General 06/02/23 Sánchez Kowalski, RAMONA M[employer]ODUCTS [address] [place] [address] [phone] Nurse Practitioner Nephrology 04/11/23 Marlen Esposito MD [address] [place] [address] [phone] Surgery 04/11/[address] [place] [address] Registered Dietitian Dietitian, Registered 04/11/23 Karen Steel WEB CONSULTANT Director Patient Financial Services 04/11/23 Marlen Esposito MD [address] [place] [address] [phone] Surgery 05/21/23 Karen Steel LICSW Director Patient Financial Services 05/21/23 Sánchez Kowalski APRN [employer] 9 [place], [place] 051885 Nurse Practitioner Nephrology 05/21/[address] [facility] 420 [facility] 84 [place] [address] Registered Dietitian Dietitian, Registered 05/21/23 Marlen Esposito MD [address] [place] [address] 51406 Assigned Surgical Provider 06/21/23 10/13/23 Barbara Valdes MD 6 [facility] 2A [place] [address] Assigned Surgical Provider 10/14/23 documented as of this encounter
--- OUTSIDE RECORDS SUMMARY | 2024-10-11 15:37 | XMS_ITS | Encounter Summary ---
Author Organization [facility] Address [address] [place] [address]. [place] [address] Care Team Providers Care Medical Records Auditor Name Role Phone Sánchez Kowalski APRN AUTOMATIC MAINTAINER Unavailable Mareln Esposito MD Unavailable Patricia Willoughby RD Unavailable Unavail able Karen Steel Unavailable Marlen Esposito MD Unavailable [phone] Karen Steel Unavailable Sánchez Kowalski APRN AUTOMATIC MAINTAINER Unavailable Patricia Willoughby RD Unavailable Unavail able Ryan Cole MD Primary Care Provider Marlen Esposito MD Unavailable [phone] Barbara Valdes MD Unavailable [phone] Encounter Details Date Type Department Care Team (Late st Contact Info) Description 07/21/2023 [facility] [place] [facility] [address] [place] [address] Linnea Graff, RN Social History [...] AM CDT Legal 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 FLEET SALES MANAGER Gender Identity Male 03/27/2023 11:48 AM [...] of this encounter Care Teams Medical Records Auditor Relationship Specialty Start Date End Date Ryan Cole MD [address] [place] [address] PCP - General 06/02/23 Sánchez Kowalski, RAMONA AUTOMATIC MAINTAINER [address] [place] [address] [id number] Nurse Practitioner Nephrology 04/11/23 Marlen Esposito MD [address] [place] [address] [phone] Surgery 04/11/[address] [place] [address] Registered Dietitian Dietitian, Registered 04/11/23 Karen Steel FERMENTER Medical Service Technician 04/11/23 Marlen Esposito MD [address] [place] [address] [phone] Surgery 05/21/23 Karen Steel LICSW Medical Service Technician 05/21/23 Sánchez Kowalski APRN AUTOMATIC MAINTAINER 9 [place], [place] 211445 Nurse Practitioner Nephrology 05/21/[address] [facility] 420 [facility] 84 [place] [address] Registered Dietitian Dietitian, Registered 05/21/23 Marlen Esposito MD [address] [place] [address]58 Assigned Surgical Provider 06/21/23 10/13/23 Barbara Valdes MD 6 [facility] 2[address] [place] [address] Assigned Surgical Provider 10/14/23 documented as of this encounter
--- OUTSIDE RECORDS SUMMARY | 2024-10-11 15:38 | XMS_ITS | Encounter Summary ---
Author Organization [place] Address [address] [place] [address]. [place] [address] Care Team Providers Care Rigging Helper Name Role Phone Sánchez Kowalski APRN TUBE REPAIRER Unavailable Marlen Esposito MD Unavailable [phone] Unavailable Unavail able Karen Steel Unavailable Marlen Esposito MD Unavailable [phone] Karen Steel Unavailable Sánchez Kowalski APRN TUBE REPAIRER Unavailable Patricia Willoughby RD Unavailable Unavail able Ryan Cole MD Primary Care Provider [phone] Marlen Esposito MD Unavailable [phone] Barbara Valdes MD Unavailable [phone] Encounter Details Date Type Department Care Team (Late st Contact Info) Description 07/10/2023 [facility] [address] [place] [address] Linnea Graff, RN Social History [...] AM CDT Legal 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 OVERHAULER Gender Identity Male 03/27/2023 11:48 AM CDT Sexual Orientation Not on file documented as of this encounter Plan of Treatment Not on file documented as of this encounter Visit Diagnoses Not on filedocumented in this encounter Additional Health Concerns Infection Onset Date Last Indicated Resolved Time Rule Out C-difficile 11/15/2023 11/15/2023 024 6:15 PM CDT documented as of this encounter Care Teams Rigging Helper Relationship Specialty Start Date End Date Ryan Cole MD [address] [place] [address] PCP - General 06/02/23 Sánchez Kowalski, RAMONA TUBE REPAIRER [address] [place] [address] [phone] Nurse Practitioner Nephrology 04/11/23 Marlen Esposito MD [address] [place] [address] [phone] Surgery 04/11/[address] [place] [address] Registered Dietitian Dietitian, Registered 04/11/23 Karen Steel MANAGER CORPORATE RESPONSIBILITY Dispatcher Motor Vehicle 04/11/23 Marlen Esposito MD [address] [place] [address] [id number] Surgery 05/21/23 Karen Steel LICSW Dispatcher Motor Vehicle 05/21/23 Sánchez Kowalski APRN TUBE REPAIRER 9 [place], [place] 003475 Nurse Practitioner Nephrology 05/21/[address] [facility] 420 [facility] 84 [place] [address] Registered Dietitian Dietitian, Registered 05/21/23 Marlen Esposito MD [address] [place] [address] Assigned Surgical Provider 06/21/23 10/13/23 Barbara Valdes MD 6 [facility] 2A [place] [address] Assigned Surgical Provider 10/14/23 documented as of this encounter
--- OUTSIDE RECORDS SUMMARY | 2024-10-11 15:38 | XMS_ITS | Encounter Summary ---
Author Organization [facility] Address [address] [place] [address]. [place] [address] Care Team Providers Care Pitting Machine Operator Name Role Phone Sánchez Kowalski APRN HEALTH EQUIPMENT SERVICER Unavailable Marlen Esposito MD Unavailable Patricia Willoughby RD Unavailable Unavail able Karen Steel Unavailable [phone] Marlen Esposito MD Unavailable Karen Steel Unavailable Sánchez Kowalski APRN HEALTH EQUIPMENT SERVICER Unavailable [phone] Unavailable Unavail able Ryan Cole MD Primary Care Provider Marlen Esposito MD Unavailable [phone] Barbara Valdes MD Unavailable [phone] Encounter Details Date Type Department Care Team (Late st Contact Info) Description 07/15/2023 [facility] [place] [facility] [address] [place] [address] Linnea Graff, RN Social History [...] AM CDT Legal 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 Gender Identity Male 03/27/2023 11:48 AM CDT Sexual Orientation Not on file documented as of this encounter Plan of Treatment Not on file documented as of this encounter Visit Diagnoses Not on filedocumented in this encounter Additional Health Concerns Infection Onset Date Last Indicated Resolved Time Rule Out C-difficile 11/15/2023 11/15/2023 024 6:15 PM CDT documented as of this encounter Care Teams Pitting Machine Operator Relationship Specialty Start Date End Date Ryan Cole MD [address] [place] [address] PCP - General 06/02/23 Sánchez Kowalski, RAMONA HEALTH EQUIPMENT SERVICER [address] [place] [address] 077365 Nurse Practitioner Nephrology 04/11/23 Marlen Esposito MD [address] [place] [address] [id number] Surgery 04/11/[address] [place] [address] Registered Dietitian Dietitian, Registered 04/11/23 Karen Steel GRADING CLERK Manager Trading 04/11/23 Marlen Esposito MD [address] [place] [address] [phone] Surgery 05/21/23 Karen Steel LICSW Manager Trading 05/21/23 Sánchez Kowalski APRN HEALTH EQUIPMENT SERVICER 9 [place], [place] 855995 Nurse Practitioner Nephrology 05/21/[address] [facility] 420 [facility] 84 [place] [address] Registered Dietitian Dietitian, Registered 05/21/23 Marlen Esposito MD [address] [place] [address] Assigned Surgical Provider 06/21/23 10/13/23 Barbara Valdes MD 6 [facility] 2A [place] [address] Assigned Surgical Provider 10/14/23 documented as of this encounter
--- OUTSIDE RECORDS SUMMARY | 2024-10-11 15:38 | XMS_ITS | Clinical Summary ---
Author Organization [employer] Address [address] [place] [address] Phone Care Team Providers Care Copier And Printer Field Technician Name Role Phone Unavailable Primary Care Provider Unavailabl e Source Comments [employer] computer is fully rolled out on [employer]. Last update 11/25/08.[employer] Allergies Active Allergy Reactions Criticality Noted Date [...] patient's age to complete this topic Insurance [facility] MEDICARE
--- OUTSIDE RECORDS SUMMARY | 2024-10-11 15:38 | XMS_ITS | Encounter Summary ---
Author Organization [facility] Address [address] [place] [address]. [place] [address] Care Team Providers Care L D Rn Name Role Phone Sánchez Kowalski APRN PERFORMANCE ENGINEER Unavailable Marlen Esposito MD Unavailable Patricia Willoughby RD Unavailable Unavail able Karen Steel Unavailable Marlen Esposito MD Unavailable Karen Steel Unavailable Sánchez Kowalski APRN PERFORMANCE ENGINEER Unavailable [phone] Unavailable Unavail able Ryan Cole MD Primary Care Provider Marlen Esposito MD Unavailable [phone] Barbara Valdes MD Unavailable [phone] Encounter Details Date Type Department Care Team (Late st Contact Info) Description 06/13/[address] [facility] Trans[facility] [address] [place] [address] Scan, Non-Provider Social History Tobacco [...] AM CDT Legal 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 FURNACE BUILDER Gender Identity Male 03/27/2023 11:48 AM CDT Sexual Orientation Not on file documented as of this encounter Plan of Treatment Not on file documented as of this encounter Visit Diagnoses Not on filedocumented in this encounter Additional Health Concerns Infection Onset Date Last Indicated Resolved Time Rule Out C-difficile 11/15/2023 11/15/2023 024 6:15 PM CDT documented as of this encounter Care Teams L D Rn Relationship Specialty Start Date End Date Ryan Cole MD [address] [place] [address] PCP - General 06/02/23 Sánchez Kowalski APRN PERFORMANCE ENGINEER [address] [place] [address] [phone] Nurse Practitioner Nephrology 04/11/23 Marlen Esposito MD [address] [place] [address] [phone] Surgery 04/11/[address] [place] [address] Registered Dietitian Dietitian, Registered 04/11/23 Karen Steel MARKETING COMMUNICATIONS COORDINATOR Natural Gas Basis Trader 04/11/23 Marlen Esposito MD [address] [place] [address] [phone] Surgery 05/21/23 Karen Steel LICSW Natural Gas Basis Trader 05/21/23 Sánchez Kowalski APRN PERFORMANCE ENGINEER 9 [place], [place] 734525 Nurse Practitioner Nephrology 05/21/[address] [facility] 420 [facility] 84 [place] [address] Registered Dietitian Dietitian, Registered 05/21/23 Marlen Esposito MD [address] [place] [address] Assigned Surgical Provider 06/21/23 10/13/23 Barbara Vlades MD 6 [facility] 2A [place] [address] Assigned Surgical Provider 10/14/23 documented as of this encounter
--- OUTSIDE RECORDS SUMMARY | 2024-10-11 15:38 | XMS_ITS | Clinical Summary ---
Author Organization [facility] Address [address] [place] [address] Care Team Providers Care Hospice Rn Name Role Phone Sánchez Kowalski APRN ADVERTISING SPACE CLERK Unavailable Marlen Esposito MD Unavailable [phone] Unavailable Unavail able Karen Steel LIFE SKILLS CONSULTANT Unavailable Marlen Esposito MD Unavailable Karen Steel LIFE SKILLS CONSULTANT Unavailable Sánchez Kowalski APRN ADVERTISING SPACE CLERK Unavailable Patricia Willoughby RD Unavailable Unavail able Ryan Cole MD Primary Care Provider Barbara Valdes MD Unavailable [phone] Allergies Active Allergy Reactions Criticality Noted [...] MOUTH BEFORE DENTAL APPOINTMENT 3 Active B Wkuqsie-Q-Xhaqy Acid (DAVE-DAVID RX) 1 mg TABS Take [...] AM CDT Legal 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 BLUEPRINT MACHINE OPERATOR Gender Identity Male 03/27/2023 11:48 [...] HEPATITIS C ANTIBODY Routine 06/02/2023 2:36 PM BLUEPRINT MACHINE OPERATOR History of liver transplant (H) Hypertensive kidney [...] BLOOD ORDERABLES Nelly verdin Result UR LABORATORY [facility] Acute Care Lab [address] [facility], [address] [place] [address], [facility] * (ABNORMAL) CBC [...] BLOOD ORDERABLES Nelly l Result UR LABORATORY [facility] Acute Care Lab [facility], [address] [place] [address] * Phosphorus (11/16/2023 6:40 AM CDT) Phosphorus 3.3 2.5 - 4.5 mg/dL 11/16/2023 10:02 AM CDT UR LABORATORY Blood STRUCTURE OF RIGHT UPPER LIMB / Unknown Venipuncture / Unknown 11/16/2023 6:40 AM CDT 11/16/2023 6:58 AM CDT Lorena Birkelo DO LAB - BLOOD ORDERABLES Final Result UR LABORATORY [facility] Acute Care Lab [address] [facility] [address], [address] [place] [address] * Hepatitis C antibody [[id number]] (06/02/2023 2:36 PM BLUEPRINT MACHINE OPERATOR) Hepatitis C Antibody Nonreactive Nonreactive 06/03/2023 8:52 AM BLUEPRINT MACHINE OPERATOR [facility] SPECIALTY CORE/PROT/EN DO Blood STRUCTURE OF LEFT UPPER LIMB / Unknown Venipuncture / Unknown 06/02/2023 2:36 PM BLUEPRINT MACHINE OPERATOR 06/02/2023 2:37 PM BLUEPRINT MACHINE OPERATOR Narrative SPECIALTY CORE/PROT/ENDO - 06/03/2023 8:52 AM BLUEPRINT MACHINE OPERATOR Assay performance characteristics have not been established for newborns, infants, and children. Sánchez Kowalski APRN ADVERTISING SPACE CLERK LAB - BLOOD ORDERABLE S Final Result SPECIALTY CORE/PROT/ENDO Specialty Core/Prot/Endo [address] [facility] [address] [facility], [address] [place] [address], [facility] [phone] from Last 3 Months or Most Recently Relevant to Health Maintenance [place] [address] [place] [address] [place] [facility] MEDICARE [facility] MEDIC[facility] Advance Directives For more information, please contact: [phone] * Full Code (Latest Code Status on [...] continue PREVIOUSLY ORDERED code status Care Teams Hospice Rn Relationship Specialty Start Date End Date Ryan Cole MD [address] [place] [address] PCP - General 06/02/23 Sánchez Kowalski, RAMONA ADVERTISING SPACE CLERK [address] [place] [address] [phone] Nurse Practitioner Nephrology 04/11/23 Marlen Esposito MD [address] [place] [place] [address] [phone] Surgery 04/11/[address] [address] Registered Dietitian Dietitian, Registered 04/11/23 Karen Steel LICSW Family Day Care Provider 04/11/23 Marlen Esposito MD [address] [place] [place] [address] [phone] Surgery 05/21/23 Karen Steel LICSW Family Day Care Provider 05/21/23 Sánchez Kowalski APRN ADVERTISING SPACE CLERK [address] [place] [place] [address] Nurse Practitioner Nephrology 05/21/[address] [address] Registered Dietitian Dietitian, Registered 05/21/23 Barbara Valdes MD [address] [place] [address] Assigned Surgical Provider 10/14/23
--- OUTSIDE RECORDS SUMMARY | 2024-10-11 15:38 | XMS_ITS | Encounter Summary ---
Author Organization [place] Address [address] [place] [address]. [place] [address] Care Team Providers Care Burr Bench Hand Name Role Phone Sánchez Kowalski APRN CLAIMS PROCESSOR Unavailable Marlen Esposito MD Unavailable Patricia Willoughby RD Unavailable Unavail able Karen Steel Unavailable Marlen Esposito MD Unavailable Karen Steel Unavailable Sánchez Kowalski APRN CLAIMS PROCESSOR Unavailable [phone] Unavailable Unavail able System, Provider Not In Primary Care Provider Un available Ryan Cole MD Primary Care Provider [phone] Marlen Esposito MD Unavailable [phone] Barbara Valdes MD Unavailable [phone] Encounter Details Date Type Department Care Team (Late st Contact Info) Description 04/11/2023 [facility] [place] [facility] [address] [place] [address] Linnea Graff, RN Social History Tobacco [...] AM CDT Legal 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 Gender Identity Male 03/27/2023 11:48 AM CDT Sexual Orientation Not on file documented as of this encounter Plan of Treatment Not on file documented as of this encounter Visit Diagnoses Not on filedocumented in this encounter Additional Health Concerns Infection Onset Date Last Indicated Resolved Time Rule Out C-difficile 11/15/2023 11/15/2023 024 6:15 PM CDT documented as of this encounter Care Teams Burr Bench Hand Relationship Specialty Start Date End Date System, Provider Not In PCP - General Clinic 05/21/23 05/21/23 Ryan Cole MD [address] [place] [address] PCP - General 06/02/23 Sánchez Kowalski APRN CLAIMS PROCESSOR [address] [place] [address] [phone] Nurse Practitioner Nephrology 04/11/23 Marlen Esposito MD [address] [place] [address] Surgery 04/11/[address] [place] [address] Registered Dietitian Dietitian, Registered 04/11/23 Karen Steel LICSW Bilingual Speech Therapist 04/11/23 Marlen Esposito MD [address] [place] [address] [phone] Surgery 05/21/23 Karen Steel LICSW Bilingual Speech Therapist 05/21/23 Sánchez Kowalski APRN CLAIMS PROCESSOR [address] [place] [address] Nurse Practitioner Nephrology 05/21/[address] [place] [address] Registered Dietitian Dietitian, Registered 05/21/23 Marlen Esposito MD [address] [place] [address] [phone] Assigned Surgical Provider 06/21/23 10/13/23 Barbara Valdes MD 6 [facility] 2A [place], [place] [address] Assigned Surgical Provider 10/14/23 documented as of this encounter
--- OUTSIDE RECORDS SUMMARY | 2024-10-11 15:38 | XMS_ITS | Referral Summary ---
Author Organization [employer] Address [address] [place] [address] Phone Care Team Providers Care Manager Shift Name Role Phone Unavailable Primary Care Provider Unavailabl e Source Comments Purewine is fully rolled out on [employer]. Last update 11/25/08.[employer] Allergies Active Allergy Reactions Criticality Noted Date [...] Plan of Treatment Not on file Insurance [facility] MEDICARE
--- OUTSIDE RECORDS SUMMARY | 2024-10-11 15:38 | XMS_ITS | Encounter Summary ---
Author Organization [facility] Address [address] [place] [address] Care Team Providers Care Store Team Leader Name Role Phone Sánchez Kowalski APRN EQUIPMENT WORKER Unavailable Marlen Esposito MD Unavailable Patricia Willoughby RD Unavailable Unavail able Karen Steel Unavailable Marlen Esposito MD Unavailable [phone] Karen Steel Unavailable Sánchez Kowalski APRN EQUIPMENT WORKER Unavailable Patricia Willoughby RD Unavailable Unavail able Ryan Cole MD Primary Care Provider Marlen Esposito MD Unavailable [phone] Barbara Valdes MD Unavailable [phone] Encounter Details Date Type Department Care Team (Late st Contact Info) Description 06/05/2023 [facility] [address] [place] [address] Marlen Esposito MD [address] [place] [address] Social History Tobacco Use Types Packs/Day [...] AM CDT 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 Gender Identity Male 03/27/2023 11:48 AM CDT Sexual Orientation Not on file documented as of this encounter Plan of Treatment Not on file documented as of this encounter Visit Diagnoses Not on filedocumented in this encounter Additional Health Concerns Infection Onset Date Last Indicated Resolved Time Rule Out C-difficile 11/15/2023 11/15/2023 024 6:15 PM CDT documented as of this encounter Care Teams Store Team Leader Relationship Specialty Start Date End Date Ryan Cole MD [address] [place] [address] PCP - General 06/02/23 Sánchez Kowalski, ENGINEERING INTERN EQUIPMENT WORKER [address] [place] [address] 238535 Nurse Practitioner Nephrology 04/11/23 Marlen Esposito MD [address] [place] [address] [phone] Surgery 04/11/[address] [place] [address] Registered Dietitian Dietitian, Registered 04/11/23 Karen Steel, SOUND TESTER Convention Services Director 04/11/23 Marlen Esposito MD [address] [place] [address] [phone] Surgery 05/21/23 Karen Steel LICSW Convention Services Director 05/21/23 Sánchez Kowalski APRN EQUIPMENT WORKER [address] [place] [address] Nurse Practitioner Nephrology 05/21/[address] [place] [address] Registered Dietitian Dietitian, Registered 05/21/23 Marlen Esposito MD [address] [place] [address] [phone] Assigned Surgical Provider 06/21/23 10/13/23 Barbara Valdes MD [address] [place] [address] [address] [place] [address] Assigned Surgical Provider 10/14/23 documented as of this encounter
--- OUTSIDE RECORDS SUMMARY | 2024-10-11 15:38 | XMS_ITS | Clinical Summary ---
Author Organization [employer] [facility] Address [address] [place] [address] Care Team Providers Care Nuclear Weapons Specialist Name Role Phone Rayn Cole MD Primary Care Provider [phone] Allergies Active Allergy Reactions Criticality Noted Date [...] renal disease) on dialysis (HC) Infusion per [facility] 07/27/19 25 Active levothyroxine (SYNTHROID) 88 mcg [...] Department Care Team Description 08/24/2024 Refill [facility] [address] [place] [address] [address] Ryan Cole MD Refill Request (Levothyroxine) 07/27/2024 8:25 AM MEDICAL RECORD CODER Office Visit [facility] [address] [place] [address] [address] Dannielle Brooks MD URI (Started with a [...] on file Legal Sex Male 6:21 AM MEDICAL RECORD CODER Gender Identity Not on file Sexual Orientation Not on file Obstetrics History Last Filed Vital Signs Vital Sign Reading Time Taken Comments Blood Pressure 120/64 07/27/2024 8:35 AM MEDICAL RECORD CODER Pulse 79 07/27/2024 8:35 AM MEDICAL RECORD CODER Temperature 36.4 C (97.6 F) 07/27/2024 8:35 AM MEDICAL RECORD CODER Respiratory Rate 24 05/24/2021 11:02 AM MEDICAL RECORD CODER Oxygen Saturation 100% 07/27/2024 8:35 AM MEDICAL RECORD CODER Inhaled Oxygen Concentration - - Weight 76.3 kg (168 lb 4.8 oz) 07/27/2024 8:35 A M MEDICAL RECORD CODER Height 175.3 cm (5' 9) 11/25/2023 9:05 [...] - 199 mg/dL 11/25/2023 6:47 PM CDT [facility] [employer] Comment: Cholesterol, Total Reference Ranges Desirable <200 mg/dL Borderline 200-239 mg/dL High >=240 mg/dL TRIGLYCERIDES 216(H) <150 mg/dL 11/25/2023 6:47 PM CDT [facility] HDL CHOLESTEROL 52 >40 mg/dL 6:47 PM CDT [facility] NON-HDL CHOLESTEROL 157(H) <145 mg/dl 11/25/2023 6:47 PM CDT [facility] CHOL/HDL RATIO 4.02 <4.50 11/25/2023 6:47 PM CDT [facility] LDL CHOLESTEROL 114 <=130 mg/dL 11/25/2023 6:47 PM CDT [facility] VLDL CHOLESTEROL 43(H) <=30 mg/dL 11/25/2023 6:47 PM CDT [facility] PROVIDER ORDERED STATUS RANDOM 11/25/2023 6:47 PM CDT [facility] Blood BLOOD SPECIMEN / Unknown Venipuncture / Unknown 11/25/2023 9:58 AM CDT 11/25/2023 9:59 AM CDT Ryan Cole MD CHEMISTRY Final Resu lt [facility] [address] [place] [address], * ANTI HCV (04/26/2021 10:01 AM CDT) HEPATITIS C ANTIBODY Non-React davin Non-React davin 04/26/2021 6:19 PM CDT [facility] Comment:Antibodies to HCV no t detected; does not exclude the possibility of exposure to HCV. Blood BLOOD SPECIMEN / Unknown Venipuncture / Unknown 04/26/2021 10:01 AM CDT 04/26/2021 10:01 AM CDT Ryan Cole MD SEND OUTS Final Resu lt [facility] [address] [place] [address], from Last 3 Months or Most Recently Relevant to Health Maintenance Insurance [place] BL[place] HB ONLY MEDICARE PART A HB ONLY MEDICARE PART B HB ONLY [place] BLUE MR PB ONLY Advance Directives Documents on File Type Date Recorded Patient Bushing And Broach Operator Expl anation Healthcare Directive 11/28/2023 024 * Full Code (Latest Code Status on File) Date Activated Date Inactivated Comments 04/30/2021 5:43 AM 04/30/2021 10:06 AM Question Answer Comments Code Status Discussion: Reviewed Preferences Care Teams Nuclear Weapons Specialist Relationship Specialty Start Date End Date Ryan Cole MD [address] [place] [address] PCP - General Family Practice 07/11/14
--- OUTSIDE RECORDS SUMMARY | 2024-10-11 15:38 | XMS_ITS | Encounter Summary ---
Author Organization [facility] Address [address] [place] [address]. [place] [address] Care Team Providers Care Oil Field Pumper Name Role Phone Sánchez Kowalski APRN SENIOR INSIGHT MANAGER Unavailable Marlen Esposito MD Unavailable [phone] Unavailable Unavail able Karen Steel Unavailable Marlen Esposito MD Unavailable Karen Steel Unavailable Sánchez Kowalski APRN SENIOR INSIGHT MANAGER Unavailable [phone] Unavailable Unavail able Ryan Cole MD Primary Care Provider [phone] Marlen Esposito MD Unavailable [phone] Barbara Valdes MD Unavailable [phone] Encounter Details Date Type Department Care Team (Late st Contact Info) Description 06/05/2023 Orders Only [facility] [address] [place] [address] Outside, Provider Social History Tobacco Use Types [...] AM CDT 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 Gender Identity Male 03/27/2023 11:48 AM CDT Sexual Orientation Not on file documented as of this encounter Plan of Treatment Not on file documented as of this encounter Procedures Procedure Name Priority Date/Time Associated Diagnosis Comments HLA RESULT REPORT 06/05/2023 2:18 PM PAPERBACK MACHINE OPERATOR HLA RESULT REPORT 06/05/2023 2:18 PM PAPERBACK MACHINE OPERATOR documented in this encounter Results * HLA RESULT REPORT (06/05/2023 2:18 PM PAPERBACK MACHINE OPERATOR) us Provider Outside LAB - IMMUNOLOGY ORDERABLES Fin al Result * HLA RESULT REPORT (06/05/2023 2:18 PM PAPERBACK MACHINE OPERATOR) us Provider Outside LAB - IMMUNOLOGY ORDERABLES Fin al Result documented in this encounter Visit Diagnoses Not on filedocumented in this encounter Additional Health Concerns Infection Onset Date Last Indicated Resolved Time Rule Out C-difficile 11/15/2023 11/15/2023 024 6:15 PM CDT documented as of this encounter Care Teams Oil Field Pumper Relationship Specialty Start Date End Date Ryan Cole MD [address] [place] [address] PCP - General 06/02/23 Sánchez Kowalski APRN SENIOR INSIGHT MANAGER [address] [place] [address] [id number] Nurse Practitioner Nephrology 04/11/23 Marlen Esposito MD [address] [place] [address] [id number] Surgery 04/11/[address] [place] [address] Registered Dietitian Dietitian, Registered 04/11/23 Karen Steel [facility] Financial Aid Counselor 04/11/23 Marlen Esposito MD [address] [place] [address] Surgery 05/21/23 Karen Steel [facility] Financial Aid Counselor 05/21/23 áSnchez Kowalski APRN SENIOR INSIGHT MANAGER [address] [place] [address] Nurse Practitioner Nephrology 05/21/[address] [facility] 420 [facility] 84 [place] [address] Registered Dietitian Dietitian, Registered 05/21/23 Marlen Esposito MD [address] [place] [address] Assigned Surgical Provider 06/21/23 10/13/23 Barbara Valdes MD 6 [facility] [address] [place] [address] Assigned Surgical Provider 10/14/23 documented as of this encounter
[2024-10-11 15:49] LABS: PCR FLU A Negative PCR FLU A (Negative); PCR FLU B Negative PCR FLU B (Negative); PCR RSV Negative PCR RSV (Negative); SARS PCR* POSITIVE SARS-CoV-2 (Negative)
[2024-10-11] MEDS: ACETAMINOPHEN 500 MG TABLET 1000 MG PO (15:56)
[2024-10-11 15:58] LABS: HCO3 VBG 29 mmol/L (21-28); Lactate* 2.7 mmol/L (0.5-1.9); PCO2 VBG 20 mmHG (40-50); PO2 VBG 43.8 mmHG (25-47)
[2024-10-11 16:00] LABS: Basophils Percent Auto 0.3 % (0.0-3.0); Hematocrit 33.5 % (37.0-53.0); Hemoglobin* 11.2 gm/dL (13.5-17.5); Immature Granulocytes Pct Auto 0.3 %; Lymphocytes Percent Auto 17.8 % (20-44); Mean Corpuscular HGB Conc 33 gm/dL (32-36); Mean Corpuscular Hemoglobin 34 pg (26-34); Mean Corpuscular Volume 101 fL (80-100); Monocytes Percent Auto 15.5 % (0.0-11.0); Neutrophils Percent Auto 66.1 % (42.0-72.0); Platelet Count* 208 K/uL (140-440); Red Blood Count 3.31 m/uL (4.30-5.90); Slide Review Reflex No; White Blood Count* 3.87 K/uL (4.50-11.00); pH VBG 7.764 (7.32-7.43)
[2024-10-11 16:16] LABS: Chloride* 92 mmol/L (96-114); Potassium* 3.9 mmol/L (3.6-5.1); Sodium* 133 mmol/L (135-149)
[2024-10-11 16:19] LABS: Blood Urea Nitrogen* 25 mg/dL (7-30); Creatinine* 3.4 mg/dL (0.5-1.5); Est. Creatinine Clearance* 20.02; Estimated Glomerular Filt Rate 19 ml/min
[2024-10-11 16:20] LABS: Anion Gap 12 mEq/L (7-15); Calcium* 9.1 mg/dL (8.4-10.6); Carbon Dioxide* 29 mmol/L (20-32); Glucose* 97 mg/dL (60-115)
[2024-10-11 16:23] LABS: C Reactive Protein* 2.8 mg/dL (0.5-1.0)
== END 2024-10-11 21:07 | disposition home or self-care (01) ==
PROVIDERS: Emergency Provider Family Medicine; PCP Surgery
DX: U07.1 COVID-19 (principal)
CPT/HCPCS: 36415; 71046; 80048; 81001; 82803; 83605; 85025; 86140; 87040; 87631; 99284; A9270

== ENCOUNTER 2025-04-21 20:12 | Emergency (ER) | payer MEDICARE, BC, SELFPAY ==
--- OUTSIDE RECORDS SUMMARY | 2025-04-21 20:14 | XMS_ITS | Encounter Summary ---
Author Organization [facility] Address [address] [place] [address]. [place] [address] Care Team Providers Care Wool Merchant Name Role Phone Sánchez Kowalski APRN LEAD DRIVER Unavailable [phone] Marlen Esposito MD Unavailable [phone] Unavailable Unavail able Karen Steel AUTOMOTIVE VEHICLE INSPECTOR Unavailable [phone] Marlen Esposito MD Unavailable [phone] Karen Steel Unavailable [phone] Sánchez Kowalski APRN LEAD DRIVER Unavailable [phone] Unavailable Unavail able Ryan Cole MD Primary Care Provider [phone] Marlen Esposito MD Unavailable [phone] Barbara Valdes MD Unavailable [phone] Encounter Details Date Type Department Care Team (Late st Contact Info) Description 07/15/2023 [facility] Medical Advice [facility] [address] [place] [address] Linnea Graff, RN Social [...] AM CDT Legal 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 Gender Identity Male 03/27/2023 11:48 AM CDT Sexual Orientation Not on file documented as of this encounter Plan of Treatment Not on file documented as of this encounter Visit Diagnoses Not on filedocumented in this encounter Additional Health Concerns Infection Onset Date Last Indicated Resolved Time Rule Out C-difficile 11/15/2023 11/15/2023 024 6:15 PM CDT documented as of this encounter Care Teams Wool Merchant Relationship Specialty Start Date End Date Ryan Cole MD [address] [place] [address] PCP - General 06/02/23 Sánchez Kowalski APRN LEAD DRIVER [address] [place] [address] [phone] Nurse Practitioner Nephrology 04/11/23 Marlen Esposito MD [address] [place] [address] [id number] Surgery 04/11/[address] [address] Registered Dietitian Dietitian, Registered 04/11/23 Karen Steel LICSW Tdp Displays Analyst 04/11/23 Marlen Esposito MD [address] [place] [address] [phone] Surgery 05/21/23 Karen Steel LICSW Tdp Displays Analyst 05/21/23 Sánchez Kowalski APRN LEAD DRIVER [address] [place] [address] Nurse Practitioner Nephrology 05/21/[address] [facility] 420 [facility] 84 [place] [address] Registered Dietitian Dietitian, Registered 05/21/23 Marlen Esposito MD [address] [place] [address] Assigned Surgical Provider 06/21/23 10/13/23 Barbara Valdes MD 6 [facility] [address] [place] [address] Assigned Surgical Provider 10/14/23 04/13/25 documented as of this encounter
--- OUTSIDE RECORDS SUMMARY | 2025-04-21 20:14 | XMS_ITS | Encounter Summary ---
Author Organization [facility] Address [address] [place] [address]. [place] [address] Care Team Providers Care Wafer Abrading Machine Tender Name Role Phone Sánchez Kowalski APRN MEDICAL ESTHETICIAN Unavailable [phone] Marlen Esposito MD Unavailable [phone] Unavailable Unavail able Karen Steel TANK WELDER Unavailable [phone] Marlen Esposito MD Unavailable [phone] Karen Steel Unavailable [phone] Sánchez Kowalski APRN MEDICAL ESTHETICIAN Unavailable [phone] Unavailable Unavail able Ryan Cole MD Primary Care Provider [phone] Marlen Esposito MD Unavailable [phone] Barbara Valdes MD Unavailable [phone] Encounter Details Date Type Department Care Team (Late st Contact Info) Description 07/10/2023 [facility] [place] [facility] [address] [place] [address] Linnea Graff, RN Social History [...] AM CDT 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 Gender Identity Male 03/27/2023 11:48 AM [...] as of this encounter Care Teams Wafer Abrading Machine Tender Relationship Specialty Start Date End Date Ryan Cole MD [address] [place] [address] PCP - General 06/02/23 Sánchez Kowalski APRN MEDICAL ESTHETICIAN [address] [place] [address] 156125 Nurse Practitioner Nephrology 04/11/23 Marlen Esposito MD [address] [place] [address] [id number] Surgery 04/11/[address] [address] Registered Dietitian Dietitian, Registered 04/11/23 Karen Steel LICSW Labor Economics Professor 04/11/23 Marlen Esposito MD [address] [place] [address] 397255 Surgery 05/21/23 Karen Steel LICSW Labor Economics Professor 05/21/23 Sánchez Kowalski APRN MEDICAL ESTHETICIAN [address] [place] [address] Nurse Practitioner Nephrology 05/21/[address] [facility] 420 [facility] 84 [place] [address] Registered Dietitian Dietitian, Registered 05/21/23 Marlen Esposito MD [address] [place] [address] Assigned Surgical Provider 06/21/23 10/13/23 Barbara Valdes MD 6 [facility] 2[address] [place] [address] Assigned Surgical Provider 10/14/23 04/13/25 documented as of this encounter
--- OUTSIDE RECORDS SUMMARY | 2025-04-21 20:14 | XMS_ITS | Encounter Summary ---
Author Organization [facility] Address [address] [place] [address]. [place] [address] Care Team Providers Care Boarder Machine Name Role Phone Sánchez Kowalski APRN SHEARING SHED HAND Unavailable [phone] Marlen Esposito MD Unavailable [phone] Unavailable Unavail able Karen Steel EXHIBIT CARPENTER Unavailable [phone] Marlen Esposito MD Unavailable [phone] Karen Steel Unavailable [phone] Sánchez Kowalski APRN SHEARING SHED HAND Unavailable [phone] Unavailable Unavail able Ryan Cole MD Primary Care Provider [phone] Marlen Esposito MD Unavailable [phone] Barbara Valdes MD Unavailable [phone] Encounter Details Date Type Department Care Team (Late st Contact Info) Description 07/27/2023 [facility] Medical Advice [facility] [address] [place] [address] Linnea Graff, RN Social History [...] AM CDT Legal 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 Gender Identity Male 03/27/2023 11:48 AM CDT Sexual Orientation Not on file documented as of this encounter Plan of Treatment Not on file documented as of this encounter Visit Diagnoses Not on filedocumented in this encounter Additional Health Concerns Infection Onset Date Last Indicated Resolved Time Rule Out C-difficile 11/15/2023 11/15/2023 024 6:15 PM CDT documented as of this encounter Care Teams Boarder Machine Relationship Specialty Start Date End Date Ryan Cole MD [address] [place] [address] PCP - General 06/02/23 Sánchez Kowalski APRN SHEARING SHED HAND [address] [place] [address] [id number] Nurse Practitioner Nephrology 04/11/23 Marlen Esposito MD [address] [place] [address] [id number] Surgery 04/11/[address] [address] Registered Dietitian Dietitian, Registered 04/11/23 Karen Steel LICSW Baker 04/11/23 Marlen Esposito MD [address] [place] [address] [phone] Surgery 05/21/23 Karen Steel LICSW Baker 05/21/23 Sánchez Kowalski APRN SHEARING SHED HAND [address] [place] [address] Nurse Practitioner Nephrology 05/21/[address] [facility] 420 [facility] 84 [place] [address] Registered Dietitian Dietitian, Registered 05/21/23 Marlen Esposito MD [address] [place] [address] Assigned Surgical Provider 06/21/23 10/13/23 Barbara Valdes MD 6 [facility] 2A [place] [address] Assigned Surgical Provider 10/14/23 04/13/25 documented as of this encounter
--- OUTSIDE RECORDS SUMMARY | 2025-04-21 20:14 | XMS_ITS | Encounter Summary ---
Author Organization [facility] Address [address] [place] [address]. [place] [address] Care Team Providers Care Vegetable Handler Name Role Phone Sánchez Kowalski APRN METROLOGY TECHNICIAN Unavailable [phone] Marlen Esposito MD Unavailable [phone] Unavailable Unavail able Karen Steel ACCORDION MAKER Unavailable [phone] Marlen Esposito MD Unavailable [phone] Karen Steel Unavailable [phone] Sánchez Kowalski APRN METROLOGY TECHNICIAN Unavailable [phone] Unavailable Unavail able Ryan Cole MD Primary Care Provider [phone] Marlen Esposito MD Unavailable [phone] Barbara Valdes MD Unavailable [phone] Encounter Details Date Type Department Care Team (Late st Contact Info) Description 09/10/2023 [facility] Medical Advice [facility] [address] [place] [address] Linnea Graff, RN Social History [...] AM CDT Legal 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 Gender Identity Male 03/27/2023 11:48 AM CDT Sexual Orientation Not on file documented as of this encounter Plan of Treatment Not on file documented as of this encounter Visit Diagnoses Not on filedocumented in this encounter Additional Health Concerns Infection Onset Date Last Indicated Resolved Time Rule Out C-difficile 11/15/2023 11/15/2023 024 6:15 PM CDT documented as of this encounter Care Teams Vegetable Handler Relationship Specialty Start Date End Date Ryan Cole MD [address] [place] [address] PCP - General 06/02/23 Sánchez Kowalski APRN METROLOGY TECHNICIAN [address] [place] [address] [phone] Nurse Practitioner Nephrology 04/11/23 Marlen Esposito MD [address] [place] [address] [id number] Surgery 04/11/[address] [address] Registered Dietitian Dietitian, Registered 04/11/23 Karen Steel LICSW Underwater Photographer 04/11/23 Marlen Esposito MD [address] [place] [address] [phone] Surgery 05/21/23 Karen Steel LICSW Underwater Photographer 05/21/23 Sánchez Kowalski APRN METROLOGY TECHNICIAN [address] [place] [address] Nurse Practitioner Nephrology 05/21/[address] [facility] 420 [facility] 84 [place] [address] Registered Dietitian Dietitian, Registered 05/21/23 Marlen Esposito MD [address] [place] [address] Assigned Surgical Provider 06/21/23 10/13/23 Barbara Valdes MD 6 [facility] [address] [place] [address] Assigned Surgical Provider 10/14/23 04/13/25 documented as of this encounter
--- OUTSIDE RECORDS SUMMARY | 2025-04-21 20:14 | XMS_ITS | Encounter Summary ---
Author Organization [facility] Address [address] [place] [address]. [place] [address] Care Team Providers Care Rn Clinical Documentation Specialist Name Role Phone Sánchez Kowalski APRN BAKERY WORKER Unavailable [phone] Marlen Esposito MD Unavailable [phone] Unavailable Unavail able Karen Steel STAFFING AND SCHEDULING COORDINATOR Unavailable [phone] Marlen Esposito MD Unavailable [phone] Karen Steel Unavailable [phone] Sánchez Kowalski APRN BAKERY WORKER Unavailable [phone] Unavailable Unavail able Ryan Cole MD Primary Care Provider [phone] Marlen Esposito MD Unavailable [phone] Barbara Valdes MD Unavailable [phone] Encounter Details Date Type Department Care Team (Late st Contact Info) Description 07/21/2023 [facility] Medical Advice [facility] [address] [place] [address] Linnea Graff, RN Social History [...] AM CDT 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 Gender Identity Male 03/27/2023 11:48 AM [...] as of this encounter Care Teams Rn Clinical Documentation Specialist Relationship Specialty Start Date End Date Ryan Cole MD [address] [place] [address] PCP - General 06/02/23 Sánchez Kowalski APRN BAKERY WORKER [address] [place] [address] [phone] Nurse Practitioner Nephrology 04/11/23 Marlen Esposito MD [address] [place] [address] [phone] Surgery 04/11/[address] [address] Registered Dietitian Dietitian, Registered 04/11/23 Karen Steel LICSW Balance Recesser 04/11/23 Marlen Esposito MD [address] [place] [address] [id number] Surgery 05/21/23 Karen Steel LICSW Balance Recesser 05/21/23 Sánchez Kowalski APRN BAKERY WORKER [address] [place] [address] Nurse Practitioner Nephrology 05/21/[address] [facility] 420 [facility] 84 [place] [address] Registered Dietitian Dietitian, Registered 05/21/23 Marlen Esposito MD [address] [place] [address] Assigned Surgical Provider 06/21/23 10/13/23 Barbara Valdes MD 6 [facility] [address] [place] [address] Assigned Surgical Provider 10/14/23 04/13/25 documented as of this encounter
--- OUTSIDE RECORDS SUMMARY | 2025-04-21 20:14 | XMS_ITS | Clinical Summary ---
Author Organization [facility] Address [address] [place] [address] Care Team Providers Care Bobbin Cleaning Machine Operator Name Role Phone Sánchez Kowalski APRN DISTRICT ADVISER Unavailable Marlen Esposito MD Unavailable [phone] Unavailable Unavail able Karen Steel ADVERTISING COPY WRITER Unavailable [phone] Marlen Esposito MD Unavailable Karen Steel ADVERTISING COPY WRITER Unavailable Sánchez Kowalski APRN DISTRICT ADVISER Unavailable Patricia Willoughby RD Unavailable Unavail able Ryan Cole MD Primary Care Provider [phone] Allergies Active Allergy Reactions Criticality Noted Date [...] MOUTH BEFORE DENTAL APPOINTMENT 3 Active B Rueawjv-U-Oibsk Acid (DAVE-DAVID RX) 1 mg TABS Take [...] AM CDT Legal 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 GUN PERFORATOR Gender Identity Male 03/27/2023 11:48 AM CDT [...] REFLEX 1955 sDNA (Cologuard) 1955 HEPATITIS B VACCINE (3 of 5 - Risk Dialysis 4-dose series) 01/04/1999 12/07/1998, 12/07/1998, 07/06/1998, Additional history exists FALL RISK ASSESSMENT 09/14/2019 FIT 05/01/2022 05/01/2021 BMP 02/18/2024 11/18/2023, 10/22, 11/16/2023, Additional history exists HEMOGLOBIN 05/20/2024 11/18/2023, 10/22, 11/16/2023, Additional history exists PHQ-2 (once per calendar year) 2024 MEDICARE ANNUAL WELLNESS VISIT 11/24/2024 11/25/2023 COVID-19 VACCINE ( season) 2025 12/23/2023, 05/13/2023, 01/21/2022, Additional history exists INFLUENZA VACCINE (#1) 2025 , 04/08/2022, 04/08/2022, Additional history exists DIABETES SCREENING 11/17/2026 11/18/2023, 0 11/17/2023, 11/16/2023, Additional history exists COLONOSCOPY 07/10/2031 07/10/2021, 06/22/2012 COLORECTAL CANCER SCREENING 07/10/2031 DTAP/TDAP/TD VACCINE (4 - Td or Tdap) 12/22/2033 12/23/2023, 02/19/2012, 05/11/2003, Additional history exists ZOSTER VACCINE Completed 01/06/2018, 10/03/2017 PNEUMOCOCCAL VACCINE 50+ YEARS Completed 05/06/2023, 06/23/2014, 06/23/2014, Additional history exists RSV VACCINE Completed 05/13/2023 PHOSPHORUS Completed 11/16/2023, 11/13/2023 ALK PHOS Completed 11/18/2023, 10/22, 11/16/2023, Additional history exists HEPATITIS C SCREENING Completed 12/23/2023 , 09/15/2023, 06/02/2023, Additional history exists MENINGITIS VACCINE Aged Out 02/24/2024, 12/23/2023 No longer eligible based on patient's age to complete this topic HPV VACCINE (No Doses Required) Completed Procedures Procedure Name Priority Date/Time Associated Diagnosis Comments CBC WITH PLATELETS Routine 11/18/2023 6: 25 AM CDT COMPREHENSIVE METABOLIC PANEL Routine 11/18/2023 6:25 AM CDT PHOSPHORUS Add-On 11/16/2023 6:40 AM CDT HEPATITIS C ANTIBODY Routine 06/02/2023 2:36 PM GUN PERFORATOR History of liver transplant (H) Hypertensive kidney [...] BLOOD ORDERABLES Nelly l Result UR LABORATORY [facility] [address] [facility], Room [address] [place] [address], [facility] * (ABNORMAL) CBC with platelets (11/18/2023 6:25 AM CDT) [facility] WBC Count 4.6 4.0 - 11.0 10e3/uL [...] BLOOD ORDERABLES Nelly l Result UR LABORATORY [facility] [address] [place] [address], [address] * Phosphorus (11/16/2023 6:40 AM CDT) Phosphorus 3.3 2.5 - 4.5 mg/dL 11/16/2023 10:02 AM CDT UR LABORATORY Blood STRUCTURE OF RIGHT UPPER LIMB / Unknown Venipuncture / Unknown 11/16/2023 6:40 AM CDT 11/16/2023 6:58 AM CDT Lorena Greene DO LAB - BLOOD ORDERABLES Final Result UR LABORATORY [facility] [address] [place] [address], [address] * Hepatitis C antibody [[id number]] (06/02/2023 2:36 PM GUN PERFORATOR) Hepatitis C Antibody Nonreactive Nonreactive 06/03/2023 8:52 AM GUN PERFORATOR [facility] DO Blood STRUCTURE OF LEFT UPPER LIMB / Unknown Venipuncture / Unknown 06/02/2023 2:36 PM GUN PERFORATOR 06/02/2023 2:37 PM GUN PERFORATOR Narrative [facility]/PROT/ENDO - 06/03/2023 8:52 AM GUN PERFORATOR Assay performance characteristics have not been established for newborns, infants, and children. us Sánchez Kowalski CERTIFIED FIRST ASSISTANT DISTRICT ADVISER LAB - BLOOD ORDERABLE S Final Result [facility]PROT/ENDO [facility]/Prot/Endo [address] [facility], Room [address] [phone] from Last 3 Months or Most Recently Relevant to Health Maintenance Insurance [place] [address] MEDICARE BC KALTAG ADELANTO MEDICARE Advance Directives For more information, please contact: [phone] * Full Code (Latest Code Status on File) Date Activated Date Inactivated Comments 11/11/2023 9:44 PM 11/18/2023 12:47 PM All basic a nd advanced life-sustaining interventions are performed as appropriate Question Answer Comments Code status determined by: Discussion with indirae nt/ legal decision maker * Full Code Date Activated Date Inactivated Comments 11/11/2023 9:30 PM 11/11/2023 9:44 PM All basic an d advanced life-sustaining interventions are performed as appropriate Question Answer Comments Code status determined by: Unable to dis cuss and no AD/POLST on file; continue PREVIOUSLY ORDERED code status Care Teams Bobbin Cleaning Machine Operator Relationship Specialty Start Date End Date Ryan Cole MD [address] [place] [address] PCP - General 06/02/23 Sánchez Kowalski APRN DISTRICT ADVISER [address] [place] [address] [phone] Nurse Practitioner Nephrology 04/11/23 Marlen Esposito MD [address] [place] [address] [id number] MD Surgery 04/11/[address] [address] Registered Dietitian Dietitian, Registered 04/11/23 Karen Steel ADVERTISING COPY WRITER Cleaning Machine Operator 04/11/23 Marlen Esposito MD [address] [place] [address] [phone] Surgery 05/21/23 Karen Steel ADVERTISING COPY WRITER Cleaning Machine Operator 05/21/23 Sánchze Kowalski APRN DISTRICT ADVISER [address] [place] [address] [phone] Nurse Practitioner Nephrology 05/21/[address] [address] Registered Dietitian Dietitian, Registered 05/21/23
--- OUTSIDE RECORDS SUMMARY | 2025-04-21 20:14 | XMS_ITS | Encounter Summary ---
Author Organization [facility] Address [address] [place] [address]. [place] [address] Care Team Providers Care Angledozer Operator Name Role Phone Sánchez Kowalski APRN INSTRUMENTATION INSTRUCTOR Unavailable [phone] Marlen Esposito MD Unavailable [phone] Unavailable Unavail able Karen Steel PUBLIC RELATIONS PLAYER Unavailable [phone] Marlen Esposito MD Unavailable [phone] Karen Steel Unavailable [phone] Sánchez Kowalski APRN INSTRUMENTATION INSTRUCTOR Unavailable [phone] Unavailable Unavail able Ryan Cole MD Primary Care Provider [phone] Marlen Esposito MD Unavailable [phone] Barbara Valdes MD Unavailable [phone] Encounter Details Date Type Department Care Team (Late st Contact Info) Description 09/01/[address] 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 PERSONALITY Gender Identity Male 03/27/2023 11:48 AM CDT Sexual Orientation Not on file documented as of this encounter Plan of Treatment Not on file documented as of this encounter Visit Diagnoses Not on filedocumented in this encounter Additional Health Concerns Infection Onset Date Last Indicated Resolved Time Rule Out C-difficile 11/15/2023 11/15/2023 024 6:15 PM CDT documented as of this encounter Care Teams Angledozer Operator Relationship Specialty Start Date End Date Ryan Cole MD [address] [place] [address] PCP - General 06/02/23 Sánchez Kowalski APRN INSTRUMENTATION INSTRUCTOR [address] [place] [address] [phone] Nurse Practitioner Nephrology 04/11/23 Marlen Esposito MD [address] [place] [address] 476695 Surgery 04/11/[address] [address] Registered Dietitian Dietitian, Registered 04/11/23 Karen Steel LICSW Distributed Energy Systems Consultant 04/11/23 Marlen Esposito MD [address] [place] [address] [id number] Surgery 05/21/23 Karen Steel LICSW Distributed Energy Systems Consultant 05/21/23 Sánchez Kowalski APRN INSTRUMENTATION INSTRUCTOR [address] [place] [address] Nurse Practitioner Nephrology 05/21/[address] [facility] [address] [facility] [address] [place] [address] Registered Dietitian Dietitian, Registered 05/21/23 Marlen Esposito MD [address] [place] [address] Assigned Surgical Provider 06/21/23 10/13/23 Barbara Valdes MD 6 [facility] [address] [place] [address] Assigned Surgical Provider 10/14/23 04/13/25 documented as of this encounter
--- OUTSIDE RECORDS SUMMARY | 2025-04-21 20:15 | XMS_ITS | Encounter Summary ---
Author Organization [facility] Address [address] [place] [address]. [place] [address] Care Team Providers Care Kiln Furniture Caster Name Role Phone Sánchez Kowalski APRN TEACHER AIDE CLERICAL Unavailable [phone] Marlen Esposito MD Unavailable [phone] Unavailable Unavail able Karen Steel MEDICAL OFFICE 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 Unavailable [phone] Marlen Esposito MD Unavailable [phone] Karen Steel Unavailable [phone] Sánchez Kowalski APRN TEACHER AIDE CLERICAL Unavailable [phone] Unavailable Unavail able Ryan Cole MD Primary Care Provider [phone] Marlen Esposito MD Unavailable [phone] Barbara Valdes MD Unavailable [phone] Encounter Details Date Type Department Care Team (Late st Contact Info) Description 06/05/2023 Orders Only [facility] [address] [place] [address] Outside, Provider Social History Tobacco Use Types [...] AM CDT Legal 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 EMBEDDED SOFTWARE DESIGN ENGINEER Gender Identity Male 03/27/2023 11:48 AM CDT Sexual Orientation Not on file documented as of this encounter Plan of Treatment Not on file documented as of this encounter Procedures Procedure Name Priority Date/Time Associated Diagnosis Comments HLA RESULT REPORT 06/05/2023 2:18 PM EMBEDDED SOFTWARE DESIGN ENGINEER HLA RESULT REPORT 06/05/2023 2:18 PM EMBEDDED SOFTWARE DESIGN ENGINEER documented in this encounter Results * HLA RESULT REPORT (06/05/2023 2:18 PM EMBEDDED SOFTWARE DESIGN ENGINEER) us Provider Outside LAB - IMMUNOLOGY ORDERABLES Fin al Result * HLA RESULT REPORT (06/05/2023 2:18 PM EMBEDDED SOFTWARE DESIGN ENGINEER) us Provider Outside LAB - IMMUNOLOGY ORDERABLES Fin al Result documented in this encounter Visit Diagnoses Not on filedocumented in this encounter Additional Health Concerns Infection Onset Date Last Indicated Resolved Time Rule Out C-difficile 11/15/2023 11/15/2023 024 6:15 PM CDT documented as of this encounter Care Teams Kiln Furniture Caster Relationship Specialty Start Date End Date Ryan Cole MD [address] [place] [address] PCP - General 06/02/23 Sánchez Kowalski, RIG BUILDER TEACHER AIDE CLERICAL [address] [place] [address] [phone] Nurse Practitioner Nephrology 04/11/23 Marlen Esposito MD [address] [place] [address] [id number] Surgery 04/11/[address] [place] [address] Registered Dietitian Dietitian, Registered 04/11/23 Karen Steel, [facility] Waiter/Waitress Third Class 04/11/23 Marlen Esposito MD [address] [place] [address] Surgery 05/21/23 Karen Steel, [facility] Waiter/Waitress Third Class 05/21/23 Sánchez Kowalski APRN [facility] [address] [place] [address] Nurse Practitioner Nephrology 05/21/[address] [place] [address] Registered Dietitian Dietitian, Registered 05/21/23 Marlen Esposito MD [address] [place] [address] Assigned Surgical Provider 06/21/23 10/13/23 Barbara Valdes MD 6 [facility] [address] [place] [address] Assigned Surgical Provider 10/14/23 04/13/25 documented as of this encounter
--- OUTSIDE RECORDS SUMMARY | 2025-04-21 20:15 | XMS_ITS | Encounter Summary ---
Author Organization [facility] Address [address] [place] [address]. [place] [address] Care Team Providers Care Marketing Director Assisted Living Name Role Phone Sánchez Kowalski APRN SLITTER AND REWINDER MACHINE OPERATOR Unavailable [phone] Marlen Esposito MD Unavailable [phone] Unavailable Unavail able Karen Steel ELECTRONIC INSTRUMENT TRADES WORKER Unavailable [phone] Mareln Esposito MD Unavailable [phone] Karen Steel Unavailable [phone] Sánchez Kowalski APRN SLITTER AND REWINDER MACHINE OPERATOR Unavailable [phone] Unavailable Unavail able Ryan Cole MD Primary Care Provider [phone] Marlen Esposito MD Unavailable [phone] Barbara Valdes MD Unavailable [phone] Encounter Details Date Type Department Care Team (Late st Contact Info) Description 06/20/2023 [facility] Medical Adv[facility] [address] [place] [address] Linnea Graff, RN Social History [...] AM CDT Legal 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 WATER CONTROL SUPERVISOR Gender Identity Male 03/27/2023 11:48 AM [...] as of this encounter Care Teams Marketing Director Assisted Living Relationship Specialty Start Date End Date Ryan Cole MD [address] [place] [address] PCP - General 06/02/23 Sánchez Kowalski APRN SLITTER AND REWINDER MACHINE OPERATOR [address] [place] [address] [phone] Nurse Practitioner Nephrology 04/11/23 Marlen Esposito MD [address] [place] [address] [phone] Surgery 04/11/[address] [address] Registered Dietitian Dietitian, Registered 04/11/23 Karen Steel LICSW Spring Repairer Helper Hand 04/11/23 Marlen Esposito MD [address] [place] [address] [phone] Surgery 05/21/23 Karen Steel LICSW Spring Repairer Helper Hand 05/21/23 Sánchez Kowalski APRN SLITTER AND REWINDER MACHINE OPERATOR [address] [place] [address] Nurse Practitioner Nephrology 05/21/[address] [facility] 420 [facility] 84 [place] [address] Registered Dietitian Dietitian, Registered 05/21/23 Marlen Esposito MD [address] [place] [address] Assigned Surgical Provider 06/21/23 10/13/23 Barbara Valdes MD 6 [facility] [address] [place] [address] Assigned Surgical Provider 10/14/23 04/13/25 documented as of this encounter
--- OUTSIDE RECORDS SUMMARY | 2025-04-21 20:15 | XMS_ITS | Encounter Summary ---
Author Organization [facility] Address [address] [place] [address]. [place] [address] Care Team Providers Care Sales Service Manager Name Role Phone Sánchez Kowalski APRN SNACK STEWARD Unavailable [phone] Marlen Esposito MD Unavailable [phone] Unavailable Unavail able Karen Steel PAINTING CONTRACTOR Unavailable [phone] Marlen Esposito MD Unavailable [phone] Karen Steel Unavailable [phone] Sánchez Kowalski APRN SNACK STEWARD Unavailable [phone] Unavailable Unavail able System, Provider Not In Primary Care Provider Un available Ryan Cole MD Primary Care Provider [phone] Marlen Espostio MD Unavailable [phone] Barbara Valdes MD Unavailable [phone] Encounter Details Date Type Department Care Team (Late st Contact Info) Description 04/11/2023 [facility] [address] [place] [address] Linnea Graff, RN Social History [...] AM CDT Legal 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 WASHER REPAIRMAN Gender Identity Male 03/27/2023 11:48 AM CDT Sexual Orientation Not on file documented as of this encounter Plan of Treatment Not on file documented as of this encounter Visit Diagnoses Not on filedocumented in this encounter Additional Health Concerns Infection Onset Date Last Indicated Resolved Time Rule Out C-difficile 11/15/2023 11/15/2023 024 6:15 PM CDT documented as of this encounter Care Teams Sales Service Manager Relationship Specialty Start Date End Date System, Provider Not In PCP - General Clinic 05/21/23 05/21/23 Ryan Cole MD [address] [place] [address] PCP - General 06/02/23 Sánchez Kowalski APRN SNACK STEWARD [address] [place] [address] [phone] Nurse Practitioner Nephrology 04/11/23 Marlen Esposito MD [address] [place] [address] Surgery 04/11/[address] [place] [address] Registered Dietitian Dietitian, Registered 04/11/23 Karen Steel LICSW Fulfillment Associate 04/11/23 Marlen Esposito MD [address] [place] [address] 358455 Surgery 05/21/23 Karen Steel LICSW Fulfillment Associate 05/21/23 Sánchez Kowalski APRN [facility] [address] [place] [address] Nurse Practitioner Nephrology 05/21/[address] [facility] 420 [facility] 84 [place] [address] Registered Dietitian Dietitian, Registered 05/21/23 Marlen Esposito MD [address] [place] [address] Assigned Surgical Provider 06/21/23 10/13/23 Barbara Valdes MD 6 [facility] [address] [place] [address] Assigned Surgical Provider 10/14/23 04/13/25 documented as of this encounter
--- OUTSIDE RECORDS SUMMARY | 2025-04-21 20:15 | XMS_ITS | Encounter Summary ---
Author Organization [facility] Address [address] [place] [address]. [place] [address] Care Team Providers Care Md Senior Research Scientist Name Role Phone Sánchez Kowalski APRN SUPERVISOR TYPESETTING Unavailable [phone] Marlen Esposito MD Unavailable [phone] Unavailable Unavail able Karen Steel UNIFORM MAKER Unavailable [phone] Marlen Esposito MD Unavailable [phone] Karen Steel Unavailable [phone] Sánchez Kowalski APRN SUPERVISOR TYPESETTING Unavailable [phone] Unavailable Unavail able Ryan Cole MD Primary Care Provider [phone] Marlen Esposito MD Unavailable [phone] Barbara Valdes MD Unavailable [phone] Encounter Details Date Type Department Care Team (Late st Contact Info) Description 08/13/2023 [facility] [address] [place] [address] Linnea Graff, RN Social History [...] CDT Legal 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 DOUBLE END TENONER SETTER Gender Identity Male 03/27/2023 11:48 AM CDT Sexual Orientation Not on file documented as of this encounter Plan of Treatment Not on file documented as of this encounter Visit Diagnoses Not on filedocumented in this encounter Additional Health Concerns Infection Onset Date Last Indicated Resolved Time Rule Out C-difficile 11/15/2023 11/15/2023 024 6:15 PM CDT documented as of this encounter Care Teams Md Senior Research Scientist Relationship Specialty Start Date End Date Ryan Cole MD [address] [place] [address] PCP - General 06/02/23 Sánchez Kowalski APRN SUPERVISOR TYPESETTING [address] [place] [address] [phone] Nurse Practitioner Nephrology 04/11/23 Marlen Esposito MD [address] [place] [address] [phone] Surgery 04/11/[address] [address] Registered Dietitian Dietitian, Registered 04/11/23 Karen Steel LICSW Edge Polisher 04/11/23 Marlen Esposito MD [address] [place] [address] 140295 Surgery 05/21/23 Karen Steel LICSW Edge Polisher 05/21/23 Sánchez Kowalski APRN SUPERVISOR TYPESETTING [address] [place] [address] Nurse Practitioner Nephrology 05/21/[address] [facility] 420 [facility] 84 [place] [address] Registered Dietitian Dietitian, Registered 05/21/23 Marlen Esposito MD [address] [place] [address] Assigned Surgical Provider 06/21/23 10/13/23 Barbara Valdes MD 6 [facility] [address] [place] [address] Assigned Surgical Provider 10/14/23 04/13/25 documented as of this encounter
--- OUTSIDE RECORDS SUMMARY | 2025-04-21 20:15 | XMS_ITS | Encounter Summary ---
Author Organization [facility] Address [address] [place] [address]. [place] [address] Care Team Providers Care Sanitation Manager Name Role Phone Sánchez Kowalski APRN MILK WAGON DRIVER Unavailable [phone] Marlen Esposito MD Unavailable [phone] Unavailable Unavail able Karen Steel POINT OF CARE SPECIALIST Unavailable [phone] Marlen Esposito MD Unavailable [phone] Karen Steel Unavailable [phone] Sánchez Kowalski APRN MILK WAGON DRIVER Unavailable [phone] Unavailable Unavail able Ryan Cole MD Primary Care Provider [phone] Marlen Esposito MD Unavailable [phone] Barbara Valdes MD Unavailable [phone] Encounter Details Date Type Department Care Team (Late st Contact Info) Description 06/18/2023 Orders Only [facility] [address] [place] [address] Outside, Provider Social History Tobacco Use Types [...] AM CDT Legal 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 BELT MOLDER Gender Identity Male 03/27/2023 11:48 AM CDT Sexual Orientation Not on file documented as of this encounter Plan of Treatment Not on file documented as of this encounter Procedures Procedure Name Priority Date/Time Associated Diagnosis Comments HLA RESULT REPORT 06/18/2023 1:05 PM BELT MOLDER HLA RESULT REPORT 06/18/2023 1:05 PM BELT MOLDER documented in this encounter Results * HLA RESULT REPORT (06/18/2023 1:05 PM BELT MOLDER) us Provider Outside LAB - IMMUNOLOGY ORDERABLES Fin al Result * HLA RESULT REPORT (06/18/2023 1:05 PM BELT MOLDER) us Provider Outside LAB - IMMUNOLOGY ORDERABLES Fin al Result documented in this encounter Visit Diagnoses Not on filedocumented in this encounter Additional Health Concerns Infection Onset Date Last Indicated Resolved Time Rule Out C-difficile 11/15/2023 11/15/2023 024 6:15 PM CDT documented as of this encounter Care Teams Sanitation Manager Relationship Specialty Start Date End Date Ryan Cole MD [address] [place] [address] PCP - General 06/02/23 Sánchez Kowalski, COMMERCIAL SALES MANAGER MILK WAGON DRIVER [address] [place] [address] [phone] Nurse Practitioner Nephrology 04/11/23 Marlen Esposito MD [address] [place] [address] [phone] Surgery 04/11/[address] [place] [address] Registered Dietitian Dietitian, Registered 04/11/23 Karen Steel, [facility] Oil Well Gun Perforator Operator 04/11/23 Marlen Esposito MD [address] [place] [address] Surgery 05/21/23 Karen Steel, [facility] Oil Well Gun Perforator Operator 05/21/23 Sánchez Kowalski APRN [facility] [address] [place] [address] Nurse Practitioner Nephrology 05/21/[address] [place] [address] Registered Dietitian Dietitian, Registered 05/21/23 Marlen Esposito MD [address] [place] [address] Assigned Surgical Provider 06/21/23 10/13/23 Barbara Valdes MD 6 [facility] [address] [place] [address] Assigned Surgical Provider 10/14/23 04/13/25 documented as of this encounter
--- OUTSIDE RECORDS SUMMARY | 2025-04-21 20:15 | XMS_ITS | Encounter Summary ---
Author Organization [facility] Address [address] [place] [address]. [place] [address] Care Team Providers Care Vending Stand Supervisor Name Role Phone Sánchez Kowalski APRN SALESPERSON FLYING SQUAD Unavailable [phone] Marlen Esposito MD Unavailable [phone] Unavailable Unavail able Karen Steel TOMATO PASTE MAKER Unavailable [phone] Marlen Esposito MD Unavailable [phone] Karen Steel Unavailable [phone] Sánchez Kowalski APRN SALESPERSON FLYING SQUAD Unavailable [phone] Unavailable Unavail able Ryan Cole MD Primary Care Provider [phone] Marlen Esposito MD Unavailable [phone] Barbara Valdes MD Unavailable [phone] Encounter Details Date Type Department Care Team (Late st Contact Info) Description 07/21/2023 [facility] Medical Advice [facility] [address] [place] [address] Linnea Graff, RN Social [...] CDT Legal 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 BUS DISPATCHER INTERSTATE Gender Identity Male 03/27/2023 11:48 AM CDT Sexual Orientation Not on file documented as of this encounter Plan of Treatment Not on file documented as of this encounter Visit Diagnoses Not on filedocumented in this encounter Additional Health Concerns Infection Onset Date Last Indicated Resolved Time Rule Out C-difficile 11/15/2023 11/15/2023 024 6:15 PM CDT documented as of this encounter Care Teams Vending Stand Supervisor Relationship Specialty Start Date End Date Ryan Cole MD [address] [place] [address] PCP - General 06/02/23 Sánchez Kowalski APRN SALESPERSON FLYING SQUAD [address] [place] [address] [id number] Nurse Practitioner Nephrology 04/11/23 Marlen Esposito MD [address] [place] [address] [id number] Surgery 04/11/[address] [address] Registered Dietitian Dietitian, Registered 04/11/23 Karen Steel LICSW Solution Make Up Operator 04/11/23 Marlen Esposito MD [address] [place] [address] [id number] Surgery 05/21/23 Karen Steel LICSW Solution Make Up Operator 05/21/23 Sánchez Kowalski APRN SALESPERSON FLYING SQUAD [address] [place] [address] Nurse Practitioner Nephrology 05/21/[address] [facility] [address] [facility] 84 [place] [address] Registered Dietitian Dietitian, Registered 05/21/23 Marlen Esposito MD [address] [place] [id number] Assigned Surgical Provider 06/21/23 10/13/23 Barbara Valdes MD 6 [facility] [address] [place] [address] Assigned Surgical Provider 10/14/23 04/13/25 documented as of this encounter
--- OUTSIDE RECORDS SUMMARY | 2025-04-21 20:15 | XMS_ITS | Encounter Summary ---
Author Organization [facility] Address [address] [place] [address]. [place] [address] Care Team Providers Care Panel Cutter Name Role Phone Sánchez Kowalski APRN CLEAT FEEDER Unavailable [phone] Marlen Esposito MD Unavailable [phone] Unavailable Unavail able Karen Steel COMPLIANCE MANAGER Unavailable [phone] Marlen Esposito MD Unavailable [phone] Karen Steel Unavailable [phone] Sánchez Kowalski APRN CLEAT FEEDER Unavailable [phone] Unavailable Unavail able Ryan Cole MD Primary Care Provider [phone] Marlen Esposito MD Unavailable [phone] Barbara Valdes MD Unavailable [phone] Encounter Details Date Type Department Care Team (Late st Contact Info) Description 06/05/2023 [facility] Medical Advice [facility] [address] [place] [address] Marlen Esposito MD [address] [place] [address] Social History Tobacco Use Types Packs/Day [...] AM CDT Legal 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 Gender Identity Male 03/27/2023 11:48 AM CDT Sexual Orientation Not on file documented as of this encounter Plan of Treatment Not on file documented as of this encounter Visit Diagnoses Not on filedocumented in this encounter Additional Health Concerns Infection Onset Date Last Indicated Resolved Time Rule Out C-difficile 11/15/2023 11/15/2023 024 6:15 PM CDT documented as of this encounter Care Teams Panel Cutter Relationship Specialty Start Date End Date Ryan Cole MD [address] [place] [address] PCP - General 06/02/23 Sánchez Kowalski, BRUSH CLEARING LABORER CLEAT FEEDER [address] [place] [address] [id number] Nurse Practitioner Nephrology 04/11/23 Marlen Esposito MD [address] [place] [address] [id number] Surgery 04/11/[address] [place] [address] Registered Dietitian Dietitian, Registered 04/11/23 Karen Steel LICSW Public Health Aide 04/11/23 Marlen Esposito MD [address] [place] [address] [id number] Surgery 05/21/23 Karen Steel LICSW Public Health Aide 05/21/23 Sánchez Kowalski APRN CLEAT FEEDER 9 [place] [address] Nurse Practitioner Nephrology 05/21/[address] [facility] 420 [facility] 84 [place] [address] Registered Dietitian Dietitian, Registered 05/21/23 Marlen Esposito MD [address] [place] [address] [id number] Assigned Surgical Provider 06/21/23 10/13/23 Barbara Valdes MD 6 [facility] 2A [place], [place] [id number] Assigned Surgical Provider 10/14/23 04/13/25 documented as of this encounter
--- OUTSIDE RECORDS SUMMARY | 2025-04-21 20:15 | XMS_ITS | Encounter Summary ---
Author Organization [facility] Address [address] [place] [address]. [place] [address] Care Team Providers Care Parachute Inspector Name Role Phone Sánchez Kowalski APRN ANIMAL TECHNICIAN Unavailable [phone] Marlen Esposito MD Unavailable [phone] Unavailable Unavail able Karen Steel SPECIAL POLICE OFFICER Unavailable [phone] Marlen Esposito MD Unavailable Karen Steel Unavailable [phone] Sánchez Kowalski APRN ANIMAL TECHNICIAN Unavailable [phone] Unavailable Unavail able Ryan Cole MD Primary Care Provider [phone] Marlen Esposito MD Unavailable [phone] Barbara Valdes MD Unavailable [phone] Encounter Details Date Type Department Care Team (Late st Contact Info) Description 06/06/2023 [facility] [place] [place] Medical Advice [facility] [address] [place] [address] Sánchez Kowalski APRN ANIMAL TECHNICIAN 9 [place] [address] Social History Tobacco Use Types [...] AM CDT 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 Gender Identity Male 03/27/2023 11:48 AM CDT Sexual Orientation Not on file documented as of this encounter Plan of Treatment Not on file documented as of this encounter Visit Diagnoses Not on filedocumented in this encounter Additional Health Concerns Infection Onset Date Last Indicated Resolved Time Rule Out C-difficile 11/15/2023 11/15/2023 024 6:15 PM CDT documented as of this encounter Care Teams Parachute Inspector Relationship Specialty Start Date End Date Ryan Cole MD [address] [place] [address] PCP - General 06/02/23 Sánchez Kowalski, SCHEDULE MAKER ANIMAL TECHNICIAN [address] [place] [address] [id number] Nurse Practitioner Nephrology 04/11/23 Marlen Esposito MD [address] [place] [address] Surgery 04/11/[address] [place] [address] Registered Dietitian Dietitian, Registered 04/11/23 Karen Steel LICSW Retail Sales Consultant 04/11/23 Marlen Esposito MD [address] [place] [address] [id number] Surgery 05/21/23 Karen Setel LICSW Retail Sales Consultant 05/21/23 Sánchez Kowalski APRN ANIMAL TECHNICIAN [address] [place] [address] Nurse Practitioner Nephrology 05/21/[address] [place] [address] Registered Dietitian Dietitian, Registered 05/21/23 Marlen Esposito MD [address] [place] [id number] Assigned Surgical Provider 06/21/23 10/13/23 Barbara Valdes MD 6 [facility] 2[address] [place] [address] Assigned Surgical Provider 10/14/23 04/13/25 documented as of this encounter
--- OUTSIDE RECORDS SUMMARY | 2025-04-21 20:15 | XMS_ITS | Clinical Summary ---
Author Organization [facility] Address [address] [place] [address] Care Team Providers Care Crane Hoist Or Lift Operator Name Role Phone Ryan Cole MD Primary Care Provider [phone] Allergies Active Allergy Reactions Criticality Noted Date [...] mouth once daily with a meal. 0 014 Active predniSONE (DELTASONE) 5 mg tablet Take 1 tablet by mouth once daily. 3 017 Active lamoTRIgine (LAMICTAL) 200 mg tablet Take 1 tablet. by mouth two times daily. 1 017 Active coenzyme q10 100 mg cap Daily Active ipratropium (ATROVENT NASAL) 21 mcg (0.03 %) nasal spray 021 Active traZODone (DESYREL) 100 mg tablet Take 100 mg by mouth once daily if needed. 022 Active azelastine 137 mcg/actuation (ASTELIN) nasal spray Inhale 1 mg into affected nostril(s). Active amoxicillin (AMOXIL) 500 mg capsuleIndication s:History of joint replacement, unspecified joint TAKE 4 CAPSULES BY MOUTH BEFORE DENTAL APPOINTMENT 4 Capsule 1 024 Active azaTHIOprine (IMURAN) 50 mg tablet Take 50 mg by mouth. 023 Active albuterol-ipratro pium (DUONEB) (2.5-0.5 mg) in 3 mL NEBULIZATION solution Inhale 1 Neb via a nebulizer every 6 hours if needed for Shortness Of Breath. 023 Active NIFEdipine (PROCARDIA XL) 30 mg extended-release tablet Take 3 Tablets (90 mg) by mouth once daily before a meal. 024 Active belatacept (NULOJIX) injectionIndicati ons:ESRD (end stage renal disease) on dialysis (HC) Infusion per [facility] 025 Active montelukast 10 mg tabletIndications :Chronic sinusitis, unspecified location Take 1 Tablet (10 mg) by mouth at bedtime. 90 Tablet 3 025 Active loratadine 10 mg tabletIndications :Chronic sinusitis, unspecified location Take 1 Tablet (10 mg) by mouth once daily. 90 Tablet 3 025 Active levothyroxine 100 mcg tabletIndications :Hypothyroidism (acquired) Take 1 Tablet (100 mcg) by mouth once daily. 90 Tablet 3 025 Active hydroCHLOROthiazi de 12.5 mg tablet Take 12.5 mg by mouth once daily. 025 Active NovoLIN N FlexPen 100 unit/mL (3 mL) pen Inject 12 units subcutaneous before breakfast. 025 Active valGANciclovir (VALCYTE) 450 mg tablet Take 900 mg by mouth once daily. 025 Active atorvastatin (LIPITOR) 40 mg tabletIndications :Hyperlipidemia, unspecified hyperlipidemia type TAKE 1 TABLET(40 MG) BY MOUTH AT BEDTIME 90 Tablet 2 025 Active atorvastatin (LIPITOR) 40 mg tabletIndications :Hyperlipidemia, unspecified hyperlipidemia type TAKE 1 TABLET(40 MG) BY MOUTH AT BEDTIME 90 Tablet 3 024 2024 Discontinued Active Problems Problem Noted Date Diagnosed Date Bipolar disorder 11/30/2024 Overview (11/30/2024): He was diagnosed with Bipolar Disorder following a liver transplant and continues to take medication for this but denies having any symptoms related to this since 2012. 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 This will not affect patient care or billing. This comment can be deleted. Other abnormal glucose 07/28/200712/26 Overview (07/28/2007): prediabetes, 2007 Unspecified disorder of liver 09/09/2006 11/27/2012 Encounters Date Type Department Care Team Description 04/19/2025 [facility] [address] [facility] [address] Ryan Cole MD Refill Request (Atorvastatin) 04/04/2025 8:00 AM CDT Ancillary Procedure [facility] [address] [place] [address] 04/03/2025 Travel 03/11/2025 3:15 PM CDT Office Visit [facility] [address] [facility] [address] Ryan Cole MD Post-op 03/11/2025 Travel 03/09/2025 Travel 01/31/2025 3:05 PM CDT Office Visit [facility] [address] [facility] [place] [address] Patricia Dubose MD Preoperative Exam (cataract surgery 02/16/25, 03/02/25 dr maxwell fax to send pre op [phone] ) 01/31/2025 Travel from Last 3 Months Immunizations Immunization [...] Years) 05/11/2003 Tdap 12/23/2023,02/19/2012 Tuberculin (PPD) 01/07/2023,12/12/2022, Tuberculin Skin Test, Unspecified [...] Answer Date Recorded PHQ-2 TOTAL SCORE 0 11/30/2024 Social Connections Answer Date Recorded Do you often feel lonely or isolated from those around you? 0 11/25/2024 Financial Resource Strain Answer Date R ecorded Difficulty of Paying Living Expenses 3 11/25/2024 Difficulty of Paying Living Expenses Not on file 11/25/2024 Food Insecurity Answer Date Recorded Do you worry your food will run out before you are able to buy more? 1 11/25/2024 Transportation Needs Answer Date Record ed Does lack of transportation keep you from medica l appointments? 1 11/25/2024 Does lack of transportation keep you from work, meetings or getting things that you need? 1 11/25/2024 Housing Stability Answer Date Recorded What is your housing situation today? 1 11/25/2024 Utilities Answer Date Recorded Do you have trouble paying f or utilities (for example, heat, electricity, water, phone)? 1 11/25/2024 Sex and Gender Information Value Date Recorded Sex Assigned at Not on file Legal Sex Male 6:21 AM OPTICAL GOODS DRILL OPERATOR Gender Identity Not on file Sexual Orientation Not on file Obstetrics History Last Filed Vital Signs Vital Sign Reading Time Taken Comments Blood Pressure 128/72 03/11/2025 3:49 PM CDT Pulse 60 03/11/2025 3:15 PM CDT Temperature 36.4 C (97.6 F) 07/27/2024 8:35 AM OPTICAL GOODS DRILL OPERATOR Respiratory Rate 24 05/24/2021 11:02 AM OPTICAL GOODS DRILL OPERATOR Oxygen Saturation 99% 03/11/2025 3:13 PM CDT Inhaled Oxygen Concentration - - Weight 78.1 kg (172 lb 3.2 oz) 03/11/2025 3:13 P M CDT Height 175 cm (5' 8.9) 11/30/2024 9:19 AM CDT Body Mass Index 25.5 11/30/2024 9:19 AM CDT Plan of Treatment Health Maintenance Due Date Last Done Comments Hepatitis B series for 19+ ( 3 of 5 - Risk Dialysis 4-dose series) 01/04/1999 12/07/1998, 12/07/1998, 07/06/1998, Additional history exists Influenza Vaccine (#1) 2025 , 03/23/2023, 04/08/2022, Additional history exists BMI (ht and wt on same day) for age 18+ 11/30/2025 11/30/2024, 11/25/2023, 05/24/2021, Additional history exists Depression screening for age 12+ 11/30/2025 11/30/2024, 11/25/2023, 12/13/2021, Additional history exists Medicare Wellness for age 65+ 12/01/2025 11/30/2024, 11/25/2023 Colonoscopy through age 75 07/10/202607/10 (Verified [...] RSV vaccine for adults or Completed 05/13/2023 Procedures Procedure Name Priority Date/Time Associated Diagnosis Comments CT CHEST WO Routine 04/04/2025 8:18 AM CDT Multiple pulmonary nodules LIPID PANEL Routine 11/25/2023 9:58 AM CDT Mixed hyperlipidemia ANTI HCV Add On 04/26/2021 10:01 AM CDT Need for hepatitis C screening test from Last 3 Months or Most Recently Relevant to Health Maintenance Results * CT CHEST WO (04/04/2025 8:18 AM CDT) Anatomical Region Laterality Modality CHEST, THORAX, HEART Computed To mography 04/04/2025 12:0 1 PM CDT Impressions 04/04/2025 12:01 PM CDT Near-complete resolution of prior focal consolidation in the right upper lobe. No new suspicious nodules, masses, or consolidation. Please note that all CT scans at this facility use dose modulation, iterative reconstruction, and/or weight-based dosing when appropriate to reduce radiation dose to as low as reasonably achievable. Dictated by Philip Munoz MD @ 04/04/2025 12:01:28 PM (Electronically Signed) Narrative 04/04/2025 12:01 PM CDT For Patients: As a result of the Cures Act, medical imaging exams and procedure reports are released immediately into your electronic medical record. You may view this report before your referring provider. If you have questions, please contact your health care provider. INDICATION: Pulmonary nodules. TECHNIQUE: Chest CT was performed without the administration of intravenous contrast. COMPARISON: : Chest CT 12/30/2024. FINDINGS: Lower neck: Unremarkable. Heart: Unremarkable. Pericardium: Unremarkable. Coronary: Severe three-vessel coronary artery calcifications. Thoracic aorta: No aneurysm. Pulmonary artery: Normal in caliber. Mediastinum/lymph nodes: Unremarkable. Esophagus: Unremarkable. Airways/Lungs/Pleura: Near complete resolution of prior focal consolidation in the right upper lobe with residual reticular opacities. No new suspicious nodules, masses, or consolidation. Tiny calcified granulomas in the right lower lobe. No pleural effusion or pneumothorax. Limited bronchiolitis in the left lower lobe is unchanged. Visualized upper abdomen: Cholecystectomy. The pancreas is atrophic with multiple hypoattenuating cystic lesions, grossly unchanged from prior study. Multiple simple appearing and hyperdense (likely proteinaceous or hemorrhagic) cystic lesions in the visualized kidneys are grossly unchanged. Osseous structures and soft tissues: No acute or aggressive osseous lesions. . Procedure Note Philip Munoz MD - 04/04/2025 For Patients: As a result of the Century Cures Act, medical imagingexams and procedure reports are released immediately into your electronicmedical record. You may view this report before your referring provider.If you have questions, please contact your health care provider. INDICATION: Pulmonary nodules. TECHNIQUE: Chest CT was performed without the administration of intravenouscontrast. COMPARISON: : Chest CT 12/30/2024. FINDINGS: Lower neck: Unremarkable. Heart: Unremarkable. Pericardium: Unremarkable. Coronary: Severe three-vessel coronary artery calcifications. Thoracic aorta: No aneurysm. Pulmonary artery: Normal in caliber. Mediastinum/lymph nodes: Unremarkable. Esophagus: Unremarkable. Airways/Lungs/Pleura: Near complete resolution of prior focalconsolidation in the right upper lobe with residual reticular opacities.No new suspicious nodules, masses, or consolidation. Tiny calcifiedgranulomas in the right lower lobe. No pleural effusion or pneumothorax.Limited bronchiolitis in the left lower lobe is unchanged. Visualized upper abdomen: Cholecystectomy. The pancreas is atrophic withmultiple hypoattenuating cystic lesions, grossly unchanged from priorstudy. Multiple simple appearing and hyperdense (likely proteinaceous orhemorrhagic) cystic lesions in the visualized kidneys are grosslyunchanged. Osseous structures and soft tissues: No acute or aggressive osseouslesions. . IMPRESSION: Near-complete resolution of prior focal consolidation in the right upperlobe. No new suspicious nodules, masses, or consolidation. Please note that all CT scans at this facility use dose modulation,iterative reconstruction, and/or weight-based dosing when appropriate toreduce radiation dose to as low as reasonably achievable. Dictated by Philip Munoz MD @ 04/04/2025 12:01:28 PM (Electronically Signed) us Ryan Cole MD CT Final Resu lt * (ABNORMAL) LIPID PANEL (11/25/2023 9:58 AM CDT) CHOLESTEROL,TOTAL 209(H) 100 - 199 mg/dL 11/25/2023 6:47 PM CDT [facility] Comment: Cholesterol, Total Reference Ranges Desirable <200 mg/dL Borderline 200-239 mg/dL High >=240 mg/dL TRIGLYCERIDES 216(H) <150 mg/dL 11/25/2023 6:47 PM CDT [facility] HDL CHOLESTEROL 52 >40 mg/dL 6:47 PM CDT [facility] NON-HDL CHOLESTEROL 157(H) <145 mg/dl 11/25/2023 6:47 PM CDT [facility] CHOL/HDL RATIO 4.02 <4.50 11/25/2023 6:47 PM CDT [facility] LDL CHOLESTEROL 114 <=130 mg/dL 11/25/2023 6:47 PM CDT [facility] VLDL CHOLESTEROL 43(H) <=30 mg/dL 11/25/2023 6:47 PM CDT [facility] PROVIDER ORDERED STATUS RANDOM 11/25/2023 6:47 PM CDT [facility] Blood BLOOD SPECIMEN / Unknown Venipuncture / Unknown 11/25/2023 9:58 AM CDT 11/25/2023 9:59 AM CDT Ryan Cole MD CHEMISTRY Final Resu lt [facility] [address] [place] [address], * ANTI HCV (04/26/2021 10:01 AM CDT) HEPATITIS C ANTIBODY Non-React davni Non-React davin 04/26/2021 6:19 PM CDT [facility] Comment:Antibodies to HCV no t detected; does not exclude the possibility of exposure to HCV. Blood BLOOD SPECIMEN / Unknown Venipuncture / Unknown 04/26/2021 10:01 AM CDT 04/26/2021 10:01 AM CDT Ryan Cole MD SEND OUTS Final Resu lt [facility] [address] [place] [address], from Last 3 Months or Most Recently Relevant to Health Maintenance Insurance [employer] [place] BLUE HB ONLY MEDICARE PART A HB ONLY MEDICARE PART B HB ONLY [employer] [place] BLUE MR PB ONLY Advance Directives Documents on File Type Date Recorded Patient Fire Fighting Equipment Specialist Expl anation Healthcare Directive 11/28/2023 024 * Full Code (Latest Code Status on File) Date Activated Date Inactivated Comments 04/30/2021 5:43 AM 04/30/2021 10:06 AM Question Answer Comments Code Status Discussion: Reviewed Preferences Care Teams Crane Hoist Or Lift Operator Relationship Specialty Start Date End Date Ryan Cole MD [address] [place] [address] PCP - General Family Practice 07/11/14
--- OUTSIDE RECORDS SUMMARY | 2025-04-21 20:15 | XMS_ITS | Data Portability ---
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 Plan of Treatment Reminders Order Date Submit Date Provider Last Modified By Organization Details Last Modified Time Details Appointments None recorded. Lab None recorded. Referral None recorded. Procedures None recorded. Surgeries None recorded. Imaging x-ray, chest 2016 017 RED BLUFF [facility], [address] [place] [address], [phone], 7 14:17:38 Medication Orders Levaquin 500 mg tablet 2016 017 INTERFACE [id number], [address] [place], [place], [id number], 7 14:48:24 prednisone 10 mg tablet 2016 017 INTERFACE [id number], [address], [place], [id number], 7 14:48:26 Patient TargetsNo targets recorded. Patient InstructionsNo instructions recorded. Reason for Referral None Reported. Results Created Date Observation Date Name Description Value Unit Range Abnormal Flag Note LastModifiedBy Organization Detail LastModifiedTime 07/03/19 17 07/03/2016 x-ray , chest No observ ation record ed. [facility] [address] [place], [address], 07/04/2016 16:23:42 Result Notes None recorded. Procedures Surgical History Date Name Laterality Status Provider Name and Address Organization Details Recorded Time 6 Ekg for initial prevent exam completed Marija Le-Beckman [place] - [facility] 07/01/2016 14:41:12 6 Chest x-ray 2vw frontal&latl completed Marija Le-Beckman [place] - [facility] 07/01/2016 14:41:28 6 Other completed Marija Le[place] - [facility] 07/01/2016 14:42:03 3 Other completed Marija Le[place] - [facility] 07/01/2016 14:38:53 3 Colonoscopy completed Marija Le[place]man [place] - [facility] 07/01/2016 14:41:41 1 Other completed Marija Le-Beckman [place] - [facility], [facility] 07/01/2016 14:40:20 3 Other completed Marija Le[place] - [facility], [facility] 07/01/2016 14:38:15 0 Knee surgery completed [place] [facility] 07/01/2016 14:39:09 4 Other completed Marija Le[place]Beckman [place] - [facility] 07/01/2016 14:37:46 Imaging Results None recorded. Procedure Notes None recorded. Medical Equipment None Reported. Allergies Allergen ID Allergen Name Allergen Category Reaction Reaction Severity Criticality Documentation Date Start Date Code Code System Note Provider Name and Address Organization Details Recorded Time 477084 erythromy ezra medicatio n Not available Not available Not available 07/01/2016 4053 RxNorm Marija Le-R uiz null, [place] - [facility], [facility] 7 14:29:37 [id number] ciproflox acin medicatio n Not available Not available Not available 07/01/2016 2551 RxNorm Marija Le-R uiz null, [facility], [facility] 7 14:29:46 [id number] Seroquel medicatio n Not available Not available Not available 07/01/2016 09352 RxNorm Marija Le-R uiz null, [facility] 7 14:29:59 [id number] citalopra m medicatio n Not available Not available Not available 07/01/2016 2556 RxNorm Marija Le-R uiz null, [facility] 7 14:30:09 [id number] Zyprexa medicatio n Not available Not available Not available 07/01/2016 31517 3 RxNorm Marija Le-R uiz null, [facility] 7 14:30:31 [id number] cefixime medicatio n Not available Not available Not available 07/01/2016 58243 RxNorm Marija Le-R uiz null, [facility] 7 14:30:43 Medications Name Sig Start Date Stop [...] in Arterial blood by Pulse oximetry Systolic And Diastolic Provider Name and Address Organization Details Last Updated DateTime 7 37106.7 1 g 177.8 cm 27.3 kg/m2 99 [degF] 76 /min 16 /min 97 % 97 % 120/70 mm[Hg] [facility]nelius [facility] 7 14:19:29 Social History Question Answer Notes LastModified by Organizat ion Details LastModified Time Tobacco Smoking Status Never Smoker Marija rodriguez [facility], [facility] 07/01/2016 14:35:52 Alcohol Use No Information n ot available 07/01/2016 Marital Status Single Informatio n not available 07/01/2016 Sex: Unknown Functional Status Question Answer Note LastModified by Organizat Cross[employer]ader Details LastModified Time What is your exercise [...] influenza, unspecified formulation 06/23/2015 completed Marija rodriguez [facility], [facility] 07/01/2016 14:34:59 pneumococcal, unspecified formulation 06/23/2014 completed Mariaj Lind [facility] [place] - [facility], [facility] 07/01/2016 14:35:14 Past Encounters Encounter ID Performer Location Encounter Start Date Encounter Closed Date Diagnosis/Indication Diagnosis SNOMED-CT Code Diagnosis ICD10 Code Diagnosis IMO Codes Diagnosis Note [id number] Sherwin cash MD [address] [place] [address] [place] [address] 07/01/2016 13:29:03 07/01/2016 14:50:10 Acute bronchitis 15216579 J20.9 Acute condition, Due to intensity and duration of the symptoms I think patient will benefit with treatment Otitis media 31174008 H6 6.90 Due to duration and intensity of the symptoms plug feeling and pain, patient needs treatment. Health Concerns Section Related Observation LastModified by Organization Detai ls LastModified Time None Recorded Concern Status LastModified by Organization Details LastModified Time None Recorded Advance Directives Directive None Recorded Payers Insurance Date Sequence Insurance Name Policy Number Policy Cheung Covered Member ID Cheung Member ID Guarantor Name 07/30/2016 3 [employer] (PPO) Bruce A Samantha [id number] Bruce A Samantha 10/17/2016 1 [place] Bruce A Samantha [id number] Bruce A Samantha 07/30/2016 2 [facility] [employer] [facility] MEDICARE PLAN - ADVANTAGE (MEDICARE REPLACEMENT PFFS) [id number] Bruce A Samantha [id number] Bruce A Samantha 07/30/2016 2 [facility] [employer] [facility] OPEN ACCESS PLUS (HMO) [id number] Bruce A Samantha [id number] Bruce A Samantha 07/30/2016 2 [facility] (MEDICARE SUPPLEMENT) [id number] Bruce A Samantha [id number] Bruce A Samantha Notes Date Note Type Note Provider Name and Address Organization Details Recorded Time 07/01/2016 text/html Cough / ColdRepo rted by PatientHPIFor reason for visit, patient reportsacute complaint. For quality, patient reportsproductive,paro xysmal, andwheezy. For sputum quality, patient reportsgreen. For severity, patient reportssevere __andworse. For onset/timing, patient reports1 weeks ago. For alleviating factors, patient reportsnothing helps. For associated symptoms, patient reportscongestionandco ld/flu like symptoms(head and sinus congestion). Ear PainReported by PatientHPIFor reason for visit, patient reportsacute complaint. For quality, patient reportsachy(fells fluid inside). For severity, patient reportsmoderate __but reportsunchanged. For onset/timing, patient reportsabruptand3 weeks ago. For context, patient reportsrecent exposure to ill contactsbut reportsno recent swimming,no recent air travel, andno recent scuba diving. For alleviating factors, patient reportsnothing. For location, patient reportsright ear. For duration, patient reportsconstant. For aggravating factors, patient reportsnothing. For associated symptoms, patient reportsno exudates,no jaw pain,no head congestion, andno fatigue.ROS as noted in the HPI Sherwin funes MD [address] [address], [place], [address], [facility] - [facility], [facility] 07/01/2016 14:51:23
[2025-04-21 20:27] VITALS: BP 173/70; PULSE 89; RESP 20; TEMP 38; O2SAT 99; BMI 25.8
[2025-04-21 21:10] LABS: PCR FLU A Negative PCR FLU A (Negative); PCR FLU B Negative PCR FLU B (Negative); PCR RSV Negative PCR RSV (Negative); SARS PCR* Negative SARS-CoV-2 (Negative)
--- NOTE | 2025-04-21 21:25 | ED.GENADULT ---
HPI - General Adult General Date Seen: 04/21/25 Chief complaint: Fever Stated complaint: fever Time Seen by Provider: 04/21/25 21:09 History of Present Illness HPI narrative: 69 yo M presenting to the ER today for fever. Fever began today. He had a kidney transplant on February 09 and started having rejection the following day on the . Transplant was done at [facility]. He had a ureter stent. Per [facility] medical record through [facility] [employer] care link he has a history of hypertension, hyperlipidemia, hypothyroidism, chronic renal failure, anxiety, bipolar, pulmonary nodules, liver transplant. Per patient he had a kidney transplant performed at [facility] in January 2025. 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 It sounds like he was put on higher doses of immunosuppressive and his kidney function improved while he was in the hospital. Creatinine a couple of days ago was improved from 8 down to 2.89. Also during his hospitalization he underwent a biopsy of the transplanted kidney. That biopsy was complicated by bleeding and development of a hematoma (possibly an intra-abdominal hematoma? ). It sounds like he needed to have a procedure to get the hematoma drained. He also had a urinary tract infection. 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 While in the hospital he had placement of a Sawyer catheter. He was finally discharged 3 days ago on Friday. He had a follow-up in that [facility] yesterday and had the catheter removed. He notes that he has been feeling pretty tired and fatigued for the past couple of days. Today started to run a fever. He is feeling body aches. He is feeling fatigued. No cough. No shortness of breath. He does have a headache. No sore throat. He has not been able to urinate this evening. He notes that he had a lot of urination and frequent urination overnight last night. He had his abdomen does feel tender but it is not really worse tonight than it was while he was in the hospital. No red rashes on his legs. No swelling in his legs. No flank pain. Related Data Home Medications ?Medication ?Instructions ?Recorded ?Confirmed albuterol sulfate 90 mcg/actuation 2 puff inhalation Q6H PRN 03/29/22 10/11/24 aerosol inhaler aspirin 81 mg tablet,delayed 81 mg PO QDAY 03/29/22 10/11/24 release (Adult Low Dose Aspirin) atorvastatin 10 mg tablet 10 mg PO QDAY 03/29/22 10/11/24 azelastine 137 mcg (0.1 %) nasal 1 spray intranasal BID 03/29/22 10/11/24 spray budesonide 0.25 mg/2 mL suspension 0.5 mg inhalation QDAY 03/29/22 10/11/24 for nebulization (Pulmicort) coenzyme Q10 100 mg capsule 100 mg PO QDAY 03/29/22 10/11/24 fluticasone fur. 200 mcg-umeclid 1 inh inhalation QDAY 03/29/22 10/11/24 62.5 mcg-vilant 25 mcg inhalat.powder (Trelegy Ellipta) ipratropium bromide 21 mcg (0.03 2 spray intranasal BID 03/29/22 10/11/24 %) nasal spray lamotrigine 200 mg tablet 200 mg PO BID 03/29/22 10/11/24 (Lamictal) levothyroxine 25 mcg capsule 25 mcg PO QDAY 03/29/22 10/11/24 loratadine 10 mg tablet 10 mg PO QDAY 03/29/22 10/11/24 montelukast 10 mg tablet 10 mg PO QDAY 03/29/22 10/11/24 (Singulair) mycophenolate mofetil 500 mg 500 mg PO Q12H 03/29/22 10/11/24 tablet (CellCept) nifedipine 30 mg tablet,extended 30 mg PO QDAY 03/29/22 10/11/24 release 24 hr (Procardia XL) prednisone 5 mg tablet 5 mg PO QDAY 03/29/22 10/11/24 tacrolimus 0.5 mg capsule, 1.5 mg PO Q12H 03/29/22 10/11/24 immediate-release (Prograf) torsemide 10 mg tablet 10 mg PO QAM 03/29/22 10/11/24 trazodone 100 mg tablet 100 mg PO QDAY 03/29/22 10/11/24 voriconazole 200 mg tablet (Vfend) 200 mg PO Q12H 03/29/22 10/11/24 Previous Rx's ?Medication ?Instructions ?Recorded gabapentin 100 mg capsule See Rx Instructions .Route 02/14/23 .COMPLEX #20 caps Allergies Allergy/AdvReac Type Severity Reaction Status Date / Time cefixime Allergy Intermediate Diarrhea Verified 10/11/24 14:49 quetiapine Allergy Intermediate Edema Verified 10/11/24 14:49 ciprofloxacin Allergy Unknown Verified 10/11/24 14:49 citalopram Allergy Unknown Verified 10/11/24 14:49 [facility] Social History Smoking Status: Former smoker Do you use any of these nicotine containing products: None Second hand tobacco smoke exposure: No How often do you have a drink containing alcohol: never How often do you have six or more drinks on one occasion: Never AUDIT-C Alcohol total score: 0 Non-prescribed substance use: denies use service: No Exam Narrative: Exam Narrative: Constitutional: Appears well-developed and well-nourished. Alert. Conversant. Feels warm to the touch but is alert and conversant. HENT: Head: Atraumatic. Nose: Nose normal. Mouth/Throat: Oral mucosa is clear and moist. no trismus. Pharynx normal. Tonsils symmetric. No tonsillar enlargement, erythema, or exudate. Eyes: Conjunctivae normal. EOM normal. Pupils equal, round, and reactive to light. No scleral icterus. Neck: Normal range of motion. Neck supple. No tracheal deviation present. No JVD Cardiovascular: Normal rate, regular rhythm. No gallop. No friction rub. No murmur heard. Symmetric radial artery pulses . Fistula in right upper extremity with positive thrill. Skin around the fistula and on the upper extremity looks good. Pulmonary/Chest: Effort normal. No stridor. No respiratory distress. No wheezes. No rales. No rhonchi . No tenderness. Abdominal: Soft. Bowel sounds normal. No distension. No mass. Suprapubic and right lower quadrant tenderness. He has a diagonal linear abdominal incision with vishnu in place. The skin around the incision line is erythematous out to about 2 cm and is warm to the touch. I think I can feel the transplanted kidney or perhaps some other mass in the right of the suprapubic region. There is also some ecchymosis on the right flank. He is not particularly tender over the right flank. No rebound. No guarding. Musculoskeletal: RUE: Normal range of motion. No tenderness. No deformity LUE: Normal range of motion. No tenderness. No deformity RLE: Normal range of motion. No edema. No tenderness. No deformity LLE: Normal range of motion. No edema. No tenderness. No deformity Neurological: Alert and oriented to person, place, and time. Normal strength. CN II-VII intact. No sensory deficit. GCS eye subscore is 4. GCS verbal subscore is 5. GCS motor subscore is 6. Normal coordination Skin: Other than his abdominal wall redness around the incision and the ecchymosis on his flank, Skin is warm and dry. No rash noted. No pallor. Normal capillary refill. Psychiatric: Normal mood. Normal affect. Const: Vital Signs, click to edit/add: Vital Signs - 24 hr 04/21/25 20:27 04/21/25 22:42 Temperature 100.4 F H 101.1 F H Pulse Rate [Pulse Oximeter] 89 Respiratory Rate 20 Blood Pressure [Le ft Upper Arm] 173/70 H Pulse Oximetry 99 Oxygen Delivery Me thod Room Air Course Vital Signs Vital signs: Initial Vital Signs Temperature 100.4 F H 04/21/25 20:27 Temperature Source Temporal Artery Scan 04/21/25 20:27 Pulse Rate 89 04/21/25 20:27 Respiratory Rate 20 04/21/25 20:27 Blood Pressure 173/70 H 04/21/25 20:27 Blood Pressure Mean 104 04/21/25 20:27 Blood Pressure Position Sitting 04/21/25 20:27 Pulse Oximetry 99 04/21/25 20:27 Oxygen Delivery Method Room Air 04/21/25 20:27 Vital Signs Temperature 100.4 F H 04/21/25 20:27 Pulse Rate 89 04/21/25 20:27 Respiratory Rate 20 04/21/25 20:27 Blood Pressure 173/70 H 04/21/25 20:27 Pulse Oximetry 99 04/21/25 20:27 Oxygen Delivery Method Room Air 04/21/25 20:27 Temperature 101.1 F H 04/21/25 22:42 Pulse Rate 89 04/21/25 20:27 Respiratory Rate 20 04/21/25 20:27 Blood Pressure 173/70 H 04/21/25 20:27 Pulse Oximetry 99 04/21/25 20:27 Oxygen Delivery Method Room Air 04/21/25 20:27 Medications Administered Medications: Generic Name Dose Route Start Last Admin Trade Name Kassidy PRN Reason Stop Dose Admin Piperacillin Sod/Tazobactam 100 mls @ 200 mls/hr 04/21/25 22:11 04/21/25 22:35 Sod 4.5 gm/ Sodium Chloride IVPB 04/21/25 22:12 200 mls/hr ONCE ONE Administration Medical Decision Making MDM Narrative Medical decision making narrative: Very pleasant 69-year-old gentleman who is about 2 months out from kidney transplant done at [facility]. He suffered an acute rejection about 10 days ago requiring a long hospitalization at [facility]. His hospitalization was complicated by a bleed from his kidney biopsy, infection, and ureteral stricture requiring stenting and Sawyer catheter placement. He presents to the ER tonight with fever. Also generalized weakness. In terms of fever, broad differential in his inner changed. Certainly this could be a viral infection but were concerned about potential bacterial sources. On my clinical exam he does have evidence for redness on his abdominal wall along his lower abdominal incision which I think is concerning for an abdominal wall cellulitis (or could even represent cutaneous manifestation of an abscess at his previous hematoma site. Less likely would be redness from healing or redness from acute rejection. I have ordered a noncontrast CT scan of the patient's chest/abdomen/pelvis (because of poor kidney function and risk of contrast nephropathy). The formal result of this CT scan is pending at the time of this dictation. Per my read I do not see any clear large intra-abdominal fluid collection. COVID/RSV/in influenza PCR is pending at the time of this dictation. Urinalysis is obtained and pending at the time of this dictation. Patient was started on broad-spectrum antibiotics (Zosyn and vancomycin. Antibiotic choice was discussed and confirmed with the receiving transplant team. Patient is also found to be acutely anemic tonight with a hemoglobin of 6.9. This is down from 8.92 days ago on 04/20 at his follow-up visit in the [facility] [place] [facility]. He denies any bleeding. Concern here would be repeat bleed from his kidney biopsy site. As far as we know he is not anticoagulated. Kidney function actually looks to be improving with a creatinine down to 2.3 today. Potassium is normal. He is not hypoxic or showing signs of fluid overload. Discussed with the kidney transplant doctor from [facility], Dr. Diaz. He has a presumptively accepted this patient for transfer back to [facility] even before the rest of his workup is done. He agrees with starting antibiotics and gentle IV fluids for now. Patient will be transferred by ground EMS. Lab Data Labs: Lab Results 04/21/25 04/21/25 Range/Units 20:27 21:20 WBC 12.32 H (4.50-11.00) K/uL RBC 2.02 L (4.30-5.90) m/uL Hgb 6.9 L* (13.5-17.5) gm/dL Hct 20.8 L (37.0-53.0) % MCV 103 H (80-100) fL MCH 34 (26-34) pg MCHC 33 (32-36) gm/dL RDW Coeff of Hilda 14.8 (11.5-15.5) % Plt Count 256 (140-440) K/uL Neut % (Auto) 88.4 H (42.0-72.0) % Lymph % (Auto) 5.9 L (20-44) % [place] % (Auto) 3.9 (0.0-11.0) % Eos % (Auto) 0.6 (0.0-7.0) % Baso % (Auto) 0.2 (0.0-3.0) % Neut # (Auto) 10.90 H (1.7-7.0) K/uL Lymph # (Auto) 0.70 L (0.90-2.90) K/uL [place] # (Auto) 0.50 (0.00-0.90) K/UL Eos # (Auto) 0.10 (0.00-0.50) K/uL Baso # (Auto) 0.00 (0.00-0.30) K/uL Abs Immat Gran (auto) 0.10 (0.00-0.30) K/uL Imm/Tot Granulo (auto) 1.0 % Sodium 132 L (135-149) mmol/L Potassium 4.1 (3.6-5.1) mmol/L Chloride 104 (96-114) mmol/L Carbon Dioxide 21 (20-32) mmol/L Anion Gap 7 (7-15) mEq/L BUN 54 H (7-30) mg/dL Creatinine 2.3 H (0.5-1.5) mg/dL Estimated Creat Clear 29.89 Estimated GFR 30 ml/min Glucose 143 H (60-115) mg/dL Lactate 1.2 (0.5-1.9) mmol/L Calcium 7.9 L (8.4-10.6) mg/dL SARS-CoV-2 (PCR) Negative SARS-CoV-2 (Negative) Influenza Type A (PCR) Negative PCR FLU A (Negative) Influenza Type B (PCR) Negative PCR FLU B (Negative) RSV (PCR) Negative PCR RSV (Negative) Discharge Plan Discharge Clinical Impression: Fever, Abdominal wall cellulitis, Anemia, Kidney transplant status Patient Disposition: [facility] Prescriptions: No Action albuterol sulfate 90 mcg/actuation HFA aerosol inhaler 2 puff inhalation Q6H PRN aspirin [Adult Low Dose Aspirin] 81 mg tablet,delayed release (DR/EC) 81 mg PO QDAY atorvastatin 10 mg tablet 10 mg PO QDAY azelastine 137 mcg (0.1 %) aerosol,spray 1 spray intranasal BID Rx Instructions: administer into each nostril budesonide [Pulmicort] 0.25 mg/2 mL suspension for nebulization 0.5 mg inhalation QDAY coenzyme Q10 100 mg capsule 100 mg PO QDAY ipratropium bromide 21 mcg (0.03 %) spray,non-aerosol 2 spray intranasal BID Rx Instructions: administer into each nostril lamotrigine [Lamictal] 200 mg tablet 200 mg PO BID levothyroxine 25 mcg capsule 25 mcg PO QDAY loratadine 10 mg tablet 10 mg PO QDAY montelukast [Singulair] 10 mg tablet 10 mg PO QDAY mycophenolate mofetil [CellCept] 500 mg tablet 500 mg PO Q12H nifedipine [Procardia XL] 30 mg tablet extended release 24hr 30 mg PO QDAY prednisone 5 mg tablet 5 mg PO QDAY tacrolimus [Prograf] 0.5 mg capsule 1.5 mg PO Q12H torsemide 10 mg tablet 10 mg PO QAM trazodone 100 mg tablet 100 mg PO QDAY Trelegy Ellipta 200-62.5-25 mcg blister with device 1 inh inhalation QDAY voriconazole [Vfend] 200 mg tablet 200 mg PO Q12H Rx Instructions: administer on empty stomach, at least 1 hour before or after meal(s) gabapentin 100 mg capsule See Rx Instructions .ROUTE .COMPLEX Qty: 20 0RF Rx Instructions: 100 mg orally every other day after dialysis. Stand Alone Forms: Clinical Ink Info Instructions
[2025-04-21 21:29] LABS: Lactate* 1.2 mmol/L (0.5-1.9)
[2025-04-21 21:34] LABS: Hematocrit* 20.8 % (37.0-53.0); Immature Granulocytes Pct Auto 1.0 %; Mean Corpuscular HGB Conc 33 gm/dL (32-36); Mean Corpuscular Hemoglobin 34 pg (26-34); Mean Corpuscular Volume 103 fL (80-100); RDW Coefficient of Variation % 14.8 % (11.5-15.5); Red Blood Count* 2.02 m/uL (4.30-5.90); White Blood Count* 12.32 K/uL (4.50-11.00)
[2025-04-21 21:45] LABS: Chloride* 104 mmol/L (96-114); Potassium* 4.1 mmol/L (3.6-5.1); Sodium* 132 mmol/L (135-149)
[2025-04-21 21:48] LABS: Anion Gap 7 mEq/L (7-15); Blood Urea Nitrogen* 54 mg/dL (7-30); Calcium* 7.9 mg/dL (8.4-10.6); Carbon Dioxide* 21 mmol/L (20-32); Creatinine* 2.3 mg/dL (0.5-1.5); Est. Creatinine Clearance* 29.89; Estimated Glomerular Filt Rate 30 ml/min; Glucose* 143 mg/dL (60-115)
[2025-04-21 21:49] LABS: Immature Granulocytes Abs Auto 0.10 K/uL (0.00-0.30)
[2025-04-21 21:50] LABS: Hemoglobin* 6.9 gm/dL (13.5-17.5); Lymphocytes Absolute Auto 0.70 K/uL (0.90-2.90); Slide Review Reflex Yes
--- NOTE | 2025-04-21 22:09 | CRLHL7_ITS ---
For Patients: As a result of the Century Cures Act, medical imaging exams and procedure reports are released immediately into your electronic medical record. You may view this report before your referring provider. If you have questions, please contact your health care provider. INDICATION: Fever. TECHNIQUE: CT chest, abdomen, and pelvis without contrast. COMPARISON: CTA chest PE 03/02/2023. FINDINGS: CHEST: Lungs and pleura: Lungs and pleural spaces are clear. No suspicious nodules, infiltrates, or effusions. Cardiovascular structures: Heart size is normal. Thoracic aorta and main pulmonary artery are normal in caliber. Coronary artery calcifications and/or stents. Mediastinum and ed: No mass or adenopathy. Chest wall and axilla: No mass or adenopathy. Bones: Unremarkable for age. ABDOMEN AND PELVIS: Liver: Unremarkable. Gallbladder and bile ducts: Status post cholecystectomy. Spleen: Unremarkable. Adrenal glands: Unremarkable. Pancreas: Multiple pancreatic lesions, incompletely characterized on this noncontrast examination. Kidneys: Atrophy of the bilateral inupiat kidneys with bilateral simple and hyperdense cysts. Right lower quadrant transplant kidney. Edematous appearance of the transplant kidney. Ureteral stent in place without evidence of hydronephrosis. Small subtle crescentic shape hyperdensity along the medial transplant kidney. GI tract: Small hiatal hernia. No evidence of obstruction. Lymph nodes: Unremarkable. Vascular structures: Abdominal aorta is normal in caliber. Moderate scattered atherosclerotic calcifications. Miscellaneous: Right lower abdominal wall postsurgical changes. Gas and fluid underlies the surgical skin vishnu. No free air or significant free fluid. Pelvic organs: Unremarkable. Bones: Degenerative changes. Right hip arthroplasty. IMPRESSION: 1. Edematous appearance of the right lower quadrant transplant kidney, which may be postsurgical. Small subtle crescentic shaped hyperdensity along the medial transplant kidney, which may represent a hematoma. 2. Associated right lower abdominal wall postsurgical changes with gas and fluid underlying the surgical skin vihsnu. 3. Multiple pancreatic lesions, incompletely characterized on this noncontrast examination. This can be further evaluated with MRI abdomen/MRCP on an outpatient basis if clinically warranted. 4. No acute pulmonary findings. Please note that all CT scans at this facility use dose modulation, iterative reconstruction, and/or weight-based dosing when appropriate to reduce radiation dose to as low as reasonably achievable. Dictated by Scott Romero MD @ 04/21/2025 11:17:07 PM (Electronically Signed)
[2025-04-21] MEDS: PIPERACILLIN/TAZOBACTAM 4.5 GM in 0.9 % SODIUM CHLORIDE Mini-bag 100 ML IVPB (22:35)
--- OUTSIDE RECORDS SUMMARY | 2025-04-21 22:37 | XMS_ITS ---
Author Organization [facility] ([facility]) Address [address] [place] [id number] Care Team Providers Care Assembler Sandal [employer] Name Role Phone Unavailable Unavailable Unavailable Allergies, Adverse Reactions, Alerts Allergy Name Allergy Type Status Severity Reaction(s) Onset Date Inactive Date Treating Clinician Comments QUEtiapine Allergy Active Unknown 09-02 18:08: 00 OLANZapine Allergy Active Unknown 09-02 18:07: 41 Ibuprofen Allergy Active Unknown 09-02 18:07: 28 Erythromycin Allergy Active Unknown 09-02 18:07: 17 Citalopram Allergy Active Unknown 09-02 18:07: 03 Ciprofloxacin Allergy Active Unknown 09-02 18:06: 50 Cefixime Allergy Active Unknown 09-02 18:06: 36 Problems Condition Name Condition Details Condition Category Status Onset Date Resolution Date Condition Entered On Date Treating Clinician Comments End-stage renal disease Problem List Item Active 2022-09-02 18:08:39 Procedures Procedure Date / Time Performed Performing Clinician Yareli ce Details AV Fistula 2021-07-24 06:00:00 Access Site Upper Arm (Right) Access Use Start Date 2021-10-15 05:00:0 0 DIALYSIS TREATMENT INFORMATION Conventional Hemodialysis Date Type Treatment Start Date Treatment End Date Pre-Treatment Vitals Post-Treatment Vitals Weight Gain BFR DFR Actual UF Dialysis Access Augus t 2024 In-Ce nter Hemod ialys is Treat ment 2025-02-16 T14:58:23. 000Z 2025-02-16 T19:01:29. 000Z BP Sitting (Pre-Dialysis) 142/81 mmHg BP Sitting (Post-D ialysis ) 149/ 76 mmHg BP Standing (Pre-Dialysis) 131/70 mmHg BP Standing (P ost-Dialysis) 154/57 mmHg Sitting Heart Rate Pre-Dialysis 77 BPM Sitting Heart Rate Post-Dialysis 67 BPM Standing Heart Rate Pre-Dialysis 81 BPM Standing Heart Rate Post-Dialysis 60 BPM Temperature Pre-Dialysis 97.6 degF Temperature Post -Dialysis 98.1 degF February 14, 2025 In-Center Hemodialysis Treatment [id number]:00:48.000Z 2914-57-30H32:02:20.000Z BP Sitting (Pre-Dialysis) 147/73 mmHg BP Sitting (Post-Dialysis) 159/74 mmHg Concurrent Access: falseAV Fistula Upper Arm (Right) Arterial BP Standing (Pre-Dialysis) 128/69 mmHg BP Standing (P ost-Dialysis) 140/71 mmHg Sitting Heart Rate Pre-Dialysis 77 BPM Sitting Heart Rate Post-Dialysis 64 BPM Standing Heart Rate Pre-Dialysis 84 BPM Standing Heart Rate Post-Dialysis 71 BPM Temperature Pre-Dialysis 98 degF Temperature Post -Dialysis 98 degF February 11, 2025 In-Center Hemodialysis Treatment 0904-49-01J26:21:04.000Z 8738-22-22X49:25:06.000Z BP Sitting (Pre-Dialysis) 153/69 mmHg BP Sitting (Post-Dialysis) 168/87 mmHg Concurrent Access: falseAV Fistula Upper Arm (Right) Arterial BP Standing (Pre-Dialysis) 140/69 mmHg BP Standing (P ost-Dialysis) 140/62 mmHg Sitting Heart Rate Pre-Dialysis 77 BPM Sitting Heart Rate Post-Dialysis 73 BPM Standing Heart Rate Pre-Dialysis 87 BPM Standing Heart Rate Post-Dialysis 84 BPM Temperature Pre-Dialysis 98 degF Temperature Post -Dialysis 97.4 degF February 09, 2025 In-Center Hemodialysis Treatment [id number]:00:40.000Z 3518-28-57I98:06:16.000Z BP Sitting (Pre-Dialysis) 146/73 mmHg BP Sitting (Post-Dialysis) 157/62 mmHg Concurrent Access: falseAV Fistula Upper Arm (Right) Arterial BP Standing (Pre-Dialysis) 135/72 mmHg BP Standing (P ost-Dialysis) 151/68 mmHg Sitting Heart Rate Pre-Dialysis 76 BPM Sitting Heart Rate Post-Dialysis 71 BPM Standing Heart Rate Pre-Dialysis 89 BPM Standing Heart Rate Post-Dialysis 74 BPM Temperature Pre-Dialysis 97.5 degF Temperature Post -Dialysis 98 degF February 07, 2025 In-Center Hemodialysis Treatment 0165-03-87J74:43:23.000Z 5680-20-98H03:50:53.000Z BP Sitting (Pre-Dialysis) 155/69 mmHg BP Sitting (Post-Dialysis) 170/83 mmHg Concurrent Access: falseAV Fistula Upper Arm (Right) Arterial BP Standing (Pre-Dialysis) 153/73 mmHg BP Standing (P ost-Dialysis) 152/82 mmHg Sitting Heart Rate Pre-Dialysis 69 BPM Sitting Heart Rate Post-Dialysis 75 BPM Standing Heart Rate Pre-Dialysis 81 BPM Standing Heart Rate Post-Dialysis 75 BPM Temperature Pre-Dialysis 98.3 degF Temperature Post -Dialysis 97.2 degF February 04, 2025 In-Center Hemodialysis Treatment [id number]:05:43.000Z 9475-45-37P83:05:55.000Z BP Sitting (Pre-Dialysis) 146/72 mmHg BP Sitting (Post-Dialysis) 165/88 mmHg Concurrent Access: falseAV Fistula Upper Arm (Right) Arterial BP Standing (Pre-Dialysis) 141/76 mmHg BP Standing (P ost-Dialysis) 157/86 mmHg Sitting Heart Rate Pre-Dialysis 80 BPM Sitting Heart Rate Post-Dialysis 78 BPM Standing Heart Rate Pre-Dialysis 94 BPM Standing Heart Rate Post-Dialysis 83 BPM Temperature Pre-Dialysis 97.5 degF Temperature Post -Dialysis 97.9 degF February 02, 2025 In-Center Hemodialysis Treatment 9290-31-10E91:00:24.000Z 5038-97-43D76:05:39.000Z BP Sitting (Pre-Dialysis) 145/73 mmHg BP Sitting (Post-Dialysis) 163/60 mmHg Concurrent Access: falseAV Fistula Upper Arm (Right) Arterial BP Standing (Pre-Dialysis) 126/69 mmHg BP Standing (P ost-Dialysis) 143/67 mmHg Sitting Heart Rate Pre-Dialysis 70 BPM Sitting Heart Rate Post-Dialysis 67 BPM Standing Heart Rate Pre-Dialysis 81 BPM Standing Heart Rate Post-Dialysis 81 BPM Temperature Pre-Dialysis 98.4 degF Temperature Post -Dialysis 97.2 degF January 31, 2025 In-Center Hemodialysis Treatment 6546-44-28L94:04:04.000Z 1572-66-61B14:10:38.000Z BP Sitting (Pre-Dialysis) 151/76 mmHg BP Sitting (Post-Dialysis) 161/76 mmHg Concurrent Access: falseAV Fistula Upper Arm (Right) Arterial BP Standing (Pre-Dialysis) 152/76 mmHg BP Standing (P ost-Dialysis) 153/73 mmHg Sitting Heart Rate Pre-Dialysis 71 BPM Sitting Heart Rate Post-Dialysis 68 BPM Standing Heart Rate Pre-Dialysis 77 BPM Standing Heart Rate Post-Dialysis 76 BPM Temperature Pre-Dialysis 97.4 degF Temperature Post -Dialysis 97.9 degF January 28, 2025 In-Center Hemodialysis Treatment 6095-57-68P10:11:18.000Z 6993-84-75U39:19:02.000Z BP Sitting (Pre-Dialysis) 154/73 mmHg BP Sitting (Post-Dialysis) 147/85 mmHg Concurrent Access: falseAV Fistula Upper Arm (Right) Arterial BP Standing (Pre-Dialysis) 138/72 mmHg BP Standing (P ost-Dialysis) 133/71 mmHg Sitting Heart Rate Pre-Dialysis 72 BPM Sitting Heart Rate Post-Dialysis 70 BPM Standing Heart Rate Pre-Dialysis 78 BPM Standing Heart Rate Post-Dialysis 78 BPM Temperature Pre-Dialysis 97.9 degF Temperature Post -Dialysis 97.5 degF January 26, 2025 In-Center Hemodialysis Treatment 0196-30-05O95:02:53.000Z 1759-00-42G72:10:27.000Z BP Sitting (Pre-Dialysis) 147/73 mmHg BP Sitting (Post-Dialysis) 139/77 mmHg Concurrent Access: falseAV Fistula Upper Arm (Right) Arterial BP Standing (Pre-Dialysis) 137/64 mmHg BP Standing (P ost-Dialysis) 130/66 mmHg Sitting Heart Rate Pre-Dialysis 75 BPM Sitting Heart Rate Post-Dialysis 76 BPM Standing Heart Rate Pre-Dialysis 81 BPM Standing Heart Rate Post-Dialysis 88 BPM Temperature Pre-Dialysis 97.4 degF Temperature Post -Dialysis 97.4 degF January 24, 2025 In-Center Hemodialysis Treatment 1636-93-33I74:03:00.000Z 1266-25-66O53:00:00.000Z BP Sitting (Pre-Dialysis) 137/72 mmHg BP Sitting (Post-Dialysis) 147/77 mmHg Concurrent Access: falseAV Fistula Upper Arm (Right) Arterial BP Standing (Pre-Dialysis) 131/63 mmHg BP Standing (P ost-Dialysis) 153/88 mmHg Sitting Heart Rate Pre-Dialysis 72 BPM Sitting Heart Rate Post-Dialysis 82 BPM Standing Heart Rate Pre-Dialysis 76 BPM Standing Heart Rate Post-Dialysis 87 BPM Temperature Pre-Dialysis 97.6 degF Temperature Post -Dialysis 97.5 degF January 21, 2025 In-Center Hemodialysis Treatment 5647-78-80M80:03:11.000Z 6510-17-13U43:00:23.000Z BP Sitting (Pre-Dialysis) 147/69 mmHg BP Sitting (Post-Dialysis) 158/72 mmHg Concurrent Access: falseAV Fistula Upper Arm (Right) Arterial BP Standing (Pre-Dialysis) 137/76 mmHg BP Standing (P ost-Dialysis) 153/70 mmHg Sitting Heart Rate Pre-Dialysis 75 BPM Sitting Heart Rate Post-Dialysis 62 BPM Standing Heart Rate Pre-Dialysis 87 BPM Standing Heart Rate Post-Dialysis 69 BPM Temperature Pre-Dialysis 98 degF Temperature Post -Dialysis 97.5 degF January 19, 2025 In-Center Hemodialysis Treatment 4287-44-36T19:13:33.000Z 5498-48-69I28:20:17.000Z BP Sitting (Pre-Dialysis) 142/75 mmHg BP Sitting (Post-Dialysis) 164/82 mmHg Concurrent Access: falseAV Fistula Upper Arm (Right) Arterial BP Standing (Pre-Dialysis) 143/70 mmHg BP Standing (P ost-Dialysis) 147/67 mmHg Sitting Heart Rate Pre-Dialysis 71 BPM Sitting Heart Rate Post-Dialysis 74 BPM Standing Heart Rate Pre-Dialysis 79 BPM Standing Heart Rate Post-Dialysis 63 BPM Temperature Pre-Dialysis 97.5 degF Temperature Post -Dialysis 97.6 degF January 17, 2025 In-Center Hemodialysis Treatment 2568-43-84T85:01:44.000Z 8984-49-99L19:07:52.000Z BP Sitting (Pre-Dialysis) 146/73 mmHg BP Sitting (Post-Dialysis) 169/83 mmHg Concurrent Access: falseAV Fistula Upper Arm (Right) Arterial BP Standing (Pre-Dialysis) 159/69 mmHg BP Standing (P ost-Dialysis) 154/75 mmHg Sitting Heart Rate Pre-Dialysis 76 BPM Sitting Heart Rate Post-Dialysis 74 BPM Standing Heart Rate Pre-Dialysis 74 BPM Standing Heart Rate Post-Dialysis 82 BPM Temperature Pre-Dialysis 98 degF Temperature Post -Dialysis 97.5 degF January 14, 2025 In-Center Hemodialysis Treatment 9173-47-50W94:56:56.000Z 2199-85-74W35:10:27.000Z BP Sitting (Pre-Dialysis) 156/73 mmHg BP Sitting (Post-Dialysis) 140/71 mmHg Concurrent Access: falseAV Fistula Upper Arm (Right) Arterial BP Standing (Pre-Dialysis) 138/70 mmHg BP Standing (P ost-Dialysis) 129/70 mmHg Sitting Heart Rate Pre-Dialysis 75 BPM Sitting Heart Rate Post-Dialysis 76 BPM Standing Heart Rate Pre-Dialysis 84 BPM Standing Heart Rate Post-Dialysis 81 BPM Temperature Pre-Dialysis 97.9 degF Temperature Post -Dialysis 98.1 degF January 12, 2025 In-Center Hemodialysis Treatment 0914-72-45R99:49:29.000Z 0089-19-24M97:17:50.000Z BP Sitting (Pre-Dialysis) 154/75 mmHg BP Sitting (Post-Dialysis) 146/73 mmHg Concurrent Access: falseAV Fistula Upper Arm (Right) Arterial BP Standing (Pre-Dialysis) 153/78 mmHg BP Standing (P ost-Dialysis) 148/83 mmHg Sitting Heart Rate Pre-Dialysis 71 BPM Sitting Heart Rate Post-Dialysis 72 BPM Standing Heart Rate Pre-Dialysis 81 BPM Standing Heart Rate Post-Dialysis 83 BPM Temperature Pre-Dialysis 98.2 degF Temperature Post -Dialysis 98 degF January 10, 2025 In-Center Hemodialysis Treatment 6664-03-83P85:03:56.000Z 3332-48-83J12:03:30.000Z BP Sitting (Pre-Dialysis) 133/69 mmHg BP Sitting (Post-Dialysis) 135/68 mmHg Concurrent Access: falseAV Fistula Upper Arm (Right) Arterial BP Standing (Pre-Dialysis) 131/70 mmHg Sitti ng Heart Rate Post-Dialysis 79 BPM Sitting Heart Rate Pre-Dialysis 78 BPM Temperatu re Post-Dialysis 98.7 degF Standing Heart Rate Pre-Dialysis 82 BPM Temperature Pre-Dialysis 98.4 degF January 07, 2025 In-Center Hemodialysis Treatment 8430-43-49E01:54:59.000Z 6096-23-89W18:56:12.000Z BP Sitting (Pre-Dialysis) 163/80 mmHg BP Sitting (Post-Dialysis) 143/71 mmHg Concurrent Access: falseAV Fistula Upper Arm (Right) Arterial BP Standing (Pre-Dialysis) 141/80 mmHg BP Standing (P ost-Dialysis) 148/68 mmHg Sitting Heart Rate Pre-Dialysis 80 BPM Sitting Heart Rate Post-Dialysis 80 BPM Standing Heart Rate Pre-Dialysis 85 BPM Standing Heart Rate Post-Dialysis 84 BPM Temperature Pre-Dialysis 98.4 degF Temperature Post -Dialysis 98.8 degF January 05, 2025 In-Center Hemodialysis Treatment 7098-45-04H45:05:40.000Z 4936-32-70D46:11:17.000Z BP Sitting (Pre-Dialysis) 159/80 mmHg BP Sitting (Post-Dialysis) 144/85 mmHg Concurrent Access: falseAV Fistula Upper Arm (Right) Arterial BP Standing (Pre-Dialysis) 148/70 mmHg BP Standing (P ost-Dialysis) 152/80 mmHg Sitting Heart Rate Pre-Dialysis 65 BPM Sitting Heart Rate Post-Dialysis 64 BPM Standing Heart Rate Pre-Dialysis 70 BPM Standing Heart Rate Post-Dialysis 75 BPM Temperature Pre-Dialysis 97.4 degF Temperature Post -Dialysis 97.4 degF January 03, 2025 In-Center Hemodialysis Treatment [id number]:12:53.000Z 9188-38-20E40:23:36.000Z BP Sitting (Pre-Dialysis) 149/73 mmHg BP Sitting (Post-Dialysis) 162/86 mmHg Concurrent Access: falseAV Fistula Upper Arm (Right) Arterial BP Standing (Pre-Dialysis) 129/68 mmHg BP Standing (P ost-Dialysis) 149/89 mmHg Sitting Heart Rate Pre-Dialysis 77 BPM Sitting Heart Rate Post-Dialysis 68 BPM Standing Heart Rate Pre-Dialysis 83 BPM Standing Heart Rate Post-Dialysis 76 BPM Temperature Pre-Dialysis 98 degF Temperature Post -Dialysis 97.6 degF December 31, 2024 In-Center Hemodialysis Treatment 5156-57-07G84:56:55.000Z 3401-60-08I41:02:46.000Z BP Sitting (Pre-Dialysis) 142/54 mmHg BP Sitting (Post-Dialysis) 131/76 mmHg Concurrent Access: falseAV Fistula Upper Arm (Right) Arterial BP Standing (Pre-Dialysis) 127/68 mmHg BP Standing (P ost-Dialysis) 162/72 mmHg Sitting Heart Rate Pre-Dialysis 71 BPM Sitting Heart Rate Post-Dialysis 73 BPM Standing Heart Rate Pre-Dialysis 79 BPM Standing Heart Rate Post-Dialysis 75 BPM Temperature Pre-Dialysis 97.4 degF Temperature Post -Dialysis 97.5 degF December 29, 2024 In-Center Hemodialysis Treatment 8310-13-97A16:01:03.000Z 0388-94-23K39:02:50.000Z BP Sitting (Pre-Dialysis) 128/67 mmHg BP Sitting (Post-Dialysis) 142/73 mmHg Concurrent Access: falseAV Fistula Upper Arm (Right) Arterial BP Standing (Pre-Dialysis) 122/65 mmHg BP Standing (P ost-Dialysis) 131/65 mmHg Sitting Heart Rate Pre-Dialysis 61 BPM Sitting Heart Rate Post-Dialysis 58 BPM Standing Heart Rate Pre-Dialysis 73 BPM Standing Heart Rate Post-Dialysis 73 BPM Temperature Pre-Dialysis 97.2 degF Temperature Post -Dialysis 97.4 degF December 27, 2024 In-Center Hemodialysis Treatment [id number]:03:17.000Z 2305-42-68O04:08:54.000Z BP Sitting (Pre-Dialysis) 128/66 mmHg BP Sitting (Post-Dialysis) 153/77 mmHg Concurrent Access: falseAV Fistula Upper Arm (Right) Arterial BP Standing (Pre-Dialysis) 121/57 mmHg BP Standing (P ost-Dialysis) 140/81 mmHg Sitting Heart Rate Pre-Dialysis 68 BPM Sitting Heart Rate Post-Dialysis 63 BPM Standing Heart Rate Pre-Dialysis 81 BPM Standing Heart Rate Post-Dialysis 73 BPM Temperature Pre-Dialysis 98 degF Temperature Post -Dialysis 98.2 degF December 24, 2024 In-Center Hemodialysis Treatment 3800-49-13K87:59:39.000Z [id number]:00:51.000Z BP Sitting (Pre-Dialysis) 128/67 mmHg BP Sitting (Post-Dialysis) 139/75 mmHg Concurrent Access: falseAV Fistula Upper Arm (Right) Arterial BP Standing (Pre-Dialysis) 128/65 mmHg BP Standing (P ost-Dialysis) 133/60 mmHg Sitting Heart Rate Pre-Dialysis 64 BPM Sitting Heart Rate Post-Dialysis 60 BPM Standing Heart Rate Pre-Dialysis 72 BPM Standing Heart Rate Post-Dialysis 72 BPM Temperature Pre-Dialysis 97.4 degF Temperature Post -Dialysis 98.2 degF December 22, 2024 In-Center Hemodialysis Treatment [id number]:52:54.000Z 0616-81-08A98:52:20.000Z BP Sitting (Pre-Dialysis) 143/74 mmHg BP Sitting (Post-Dialysis) 145/72 mmHg Concurrent Access: falseAV Fistula Upper Arm (Right) Arterial BP Standing (Pre-Dialysis) 125/69 mmHg BP Standing (P ost-Dialysis) 154/76 mmHg Sitting Heart Rate Pre-Dialysis 71 BPM Sitting Heart Rate Post-Dialysis 63 BPM Standing Heart Rate Pre-Dialysis 77 BPM Standing Heart Rate Post-Dialysis 66 BPM Temperature Pre-Dialysis 97.7 degF Temperature Post -Dialysis 98 degF December 20, 2024 In-Center Hemodialysis Treatment [id number]:54:25.000Z 7009-46-44K41:00:47.000Z BP Sitting (Pre-Dialysis) 122/61 mmHg BP Sitting (Post-Dialysis) 143/75 mmHg Concurrent Access: falseAV Fistula Upper Arm (Right) Arterial BP Standing (Pre-Dialysis) 116/60 mmHg BP Standing (P ost-Dialysis) 137/71 mmHg Sitting Heart Rate Pre-Dialysis 66 BPM Sitting Heart Rate Post-Dialysis 61 BPM Standing Heart Rate Pre-Dialysis 73 BPM Standing Heart Rate Post-Dialysis 70 BPM Temperature Pre-Dialysis 97.4 degF Temperature Post -Dialysis 97.6 degF December 17, 2024 In-Center Hemodialysis Treatment 3791-77-91X23:02:14.000Z [id number]:08:07.000Z BP Sitting (Pre-Dialysis) 147/73 mmHg BP Sitting (Post-Dialysis) 157/78 mmHg Concurrent Access: falseAV Fistula Upper Arm (Right) Arterial BP Standing (Pre-Dialysis) 142/67 mmHg BP Standing (P ost-Dialysis) 152/67 mmHg Sitting Heart Rate Pre-Dialysis 67 BPM Sitting Heart Rate Post-Dialysis 68 BPM Standing Heart Rate Pre-Dialysis 75 BPM Standing Heart Rate Post-Dialysis 76 BPM Temperature Pre-Dialysis 98.2 degF Temperature Post -Dialysis 97.2 degF December 15, 2024 In-Center Hemodialysis Treatment [id number]:54:35.000Z 5643-10-16I79:01:32.000Z BP Sitting (Pre-Dialysis) 129/64 mmHg BP Sitting (Post-Dialysis) 144/70 mmHg Concurrent Access: falseAV Fistula Upper Arm (Right) Arterial BP Standing (Pre-Dialysis) 111/67 mmHg BP Standing (P ost-Dialysis) 161/83 mmHg Sitting Heart Rate Pre-Dialysis 68 BPM Sitting Heart Rate Post-Dialysis 59 BPM Standing Heart Rate Pre-Dialysis 71 BPM Standing Heart Rate Post-Dialysis 73 BPM Temperature Pre-Dialysis 97.3 degF Temperature Post -Dialysis 97.6 degF December 13, 2024 In-Center Hemodialysis Treatment 5924-03-25M96:55:35.000Z 2307-54-28N43:55:00.000Z BP Sitting (Pre-Dialysis) 136/60 mmHg BP Sitting (Post-Dialysis) 136/75 mmHg Concurrent Access: falseAV Fistula Upper Arm (Right) Arterial BP Standing (Pre-Dialysis) 127/67 mmHg BP Standing (P ost-Dialysis) 128/75 mmHg Sitting Heart Rate Pre-Dialysis 71 BPM Sitting Heart Rate Post-Dialysis 72 BPM Standing Heart Rate Pre-Dialysis 85 BPM Standing Heart Rate Post-Dialysis 89 BPM Temperature Pre-Dialysis 98 degF Temperature Post -Dialysis 97.5 degF December 10, 2024 In-Center Hemodialysis Treatment 7419-79-35S95:00:37.000Z 3192-11-03T99:03:12.000Z BP Sitting (Pre-Dialysis) 150/64 mmHg BP Sitting (Post-Dialysis) 146/77 mmHg Concurrent Access: falseAV Fistula Upper Arm (Right) Arterial BP Standing (Pre-Dialysis) 139/72 mmHg BP Standing (P ost-Dialysis) 120/73 mmHg Sitting Heart Rate Pre-Dialysis 77 BPM Sitting Heart Rate Post-Dialysis 66 BPM Standing Heart Rate Pre-Dialysis 88 BPM Standing Heart Rate Post-Dialysis 78 BPM Temperature Pre-Dialysis 97.6 degF Temperature Post -Dialysis 97.6 degF December 08, 2024 In-Center Hemodialysis Treatment 4442-57-88S08:15:29.000Z 7222-78-32W03:23:25.000Z BP Sitting (Pre-Dialysis) 120/62 mmHg BP Sitting (Post-Dialysis) 158/65 mmHg Concurrent Access: falseAV Fistula Upper Arm (Right) Arterial BP Standing (Pre-Dialysis) 116/62 mmHg BP Standing (P ost-Dialysis) 119/65 mmHg Sitting Heart Rate Pre-Dialysis 71 BPM Sitting Heart Rate Post-Dialysis 70 BPM Standing Heart Rate Pre-Dialysis 79 BPM Standing Heart Rate Post-Dialysis 79 BPM Temperature Pre-Dialysis 97.4 degF Temperature Post -Dialysis 97.6 degF December 06, 2024 In-Center Hemodialysis Treatment 7629-73-58F81:51:36.000Z 4732-70-18Q99:58:22.000Z BP Sitting (Pre-Dialysis) 148/66 mmHg BP Sitting (Post-Dialysis) 149/72 mmHg Concurrent Access: falseAV Fistula Upper Arm (Right) Arterial BP Standing (Pre-Dialysis) 128/64 mmHg BP Standing (P ost-Dialysis) 121/65 mmHg Sitting Heart Rate Pre-Dialysis 68 BPM Sitting Heart Rate Post-Dialysis 67 BPM Standing Heart Rate Pre-Dialysis 71 BPM Standing Heart Rate Post-Dialysis 72 BPM Temperature Pre-Dialysis 97.4 degF Temperature Post -Dialysis 97.4 degF December 03, 2024 In-Center Hemodialysis Treatment 6525-18-24M34:50:47.000Z 5775-73-76E30:57:57.000Z BP Sitting (Pre-Dialysis) 154/79 mmHg BP Sitting (Post-Dialysis) 141/73 mmHg Concurrent Access: falseAV Fistula Upper Arm (Right) Arterial BP Standing (Pre-Dialysis) 148/69 mmHg BP Standing (P ost-Dialysis) 123/66 mmHg Sitting Heart Rate Pre-Dialysis 70 BPM Sitting Heart Rate Post-Dialysis 67 BPM Standing Heart Rate Pre-Dialysis 73 BPM Standing Heart Rate Post-Dialysis 77 BPM Temperature Pre-Dialysis 97.6 degF Temperature Post -Dialysis 98.3 degF December 01, 2024 In-Center Hemodialysis Treatment 3953-04-86U43:13:59.000Z [id number]:21:36.000Z BP Sitting (Pre-Dialysis) 158/74 mmHg BP Sitting (Post-Dialysis) 149/79 mmHg Concurrent Access: falseAV Fistula Upper Arm (Right) Arterial BP Standing (Pre-Dialysis) 140/74 mmHg BP Standing (P ost-Dialysis) 151/68 mmHg Sitting Heart Rate Pre-Dialysis 74 BPM Sitting Heart Rate Post-Dialysis 66 BPM Standing Heart Rate Pre-Dialysis 77 BPM Standing Heart Rate Post-Dialysis 78 BPM Temperature Pre-Dialysis 98.5 degF Temperature Post -Dialysis 97.4 degF November 29, 2024 In-Center Hemodialysis Treatment [id number]:04:00.000Z 1176-87-97I48:05:00.000Z BP Sitting (Pre-Dialysis) 124/63 mmHg BP Sitting (Post-Dialysis) 125/61 mmHg Concurrent Access: falseAV Fistula Upper Arm (Right) Arterial BP Standing (Pre-Dialysis) 118/62 mmHg BP Standing (P ost-Dialysis) 123/60 mmHg Sitting Heart Rate Pre-Dialysis 65 BPM Sitting Heart Rate Post-Dialysis 68 BPM Standing Heart Rate Pre-Dialysis 71 BPM Standing Heart Rate Post-Dialysis 79 BPM Temperature Pre-Dialysis 97.6 degF Temperature Post -Dialysis 98 degF November 26, 2024 In-Center Hemodialysis Treatment 5756-51-04Z71:03:00.000Z 7953-86-65B64:10:00.000Z BP Sitting (Pre-Dialysis) 127/61 mmHg BP Sitting (Post-Dialysis) 180/86 mmHg Concurrent Access: falseAV Fistula Upper Arm (Right) Arterial BP Standing (Pre-Dialysis) 121/62 mmHg BP Standing (P ost-Dialysis) 160/71 mmHg Sitting Heart Rate Pre-Dialysis 70 BPM Sitting Heart Rate Post-Dialysis 64 BPM Standing Heart Rate Pre-Dialysis 70 BPM Standing Heart Rate Post-Dialysis 78 BPM Temperature Pre-Dialysis 98 degF Temperature Post -Dialysis 97.5 degF November 24, 2024 In-Center Hemodialysis Treatment 0566-91-41F75:05:00.000Z 2028-74-22L40:08:00.000Z BP Sitting (Pre-Dialysis) 157/76 mmHg BP Sitting (Post-Dialysis) 155/76 mmHg Concurrent Access: falseAV Fistula Upper Arm (Right) Arterial BP Standing (Pre-Dialysis) 141/62 mmHg BP Standing (P ost-Dialysis) 158/84 mmHg Sitting Heart Rate Pre-Dialysis 70 BPM Sitting Heart Rate Post-Dialysis 72 BPM Standing Heart Rate Pre-Dialysis 73 BPM Standing Heart Rate Post-Dialysis 81 BPM Temperature Pre-Dialysis 98.2 degF Temperature Post -Dialysis 98 degF November 22, 2024 In-Center Hemodialysis Treatment 7020-73-94J47:03:00.000Z 3850-70-73K54:16:00.000Z BP Sitting (Pre-Dialysis) 142/73 mmHg BP Sitting (Post-Dialysis) 149/80 mmHg Concurrent Access: falseAV Fistula Upper Arm (Right) Arterial BP Standing (Pre-Dialysis) 144/74 mmHg BP Standing (P ost-Dialysis) 149/67 mmHg Sitting Heart Rate Pre-Dialysis 75 BPM Sitting Heart Rate Post-Dialysis 69 BPM Standing Heart Rate Pre-Dialysis 85 BPM Standing Heart Rate Post-Dialysis 78 BPM Temperature Pre-Dialysis 98 degF Temperature Post -Dialysis 98.3 degF November 19, 2024 In-Center Hemodialysis Treatment 2355-83-04H25:10:00.000Z 1640-34-48O41:21:57.000Z BP Sitting (Pre-Dialysis) 132/67 mmHg BP Sitting (Post-Dialysis) 146/80 mmHg Concurrent Access: falseAV Fistula Upper Arm (Right) Arterial BP Standing (Pre-Dialysis) 133/64 mmHg BP Standing (P ost-Dialysis) 151/78 mmHg Sitting Heart Rate Pre-Dialysis 76 BPM Sitting Heart Rate Post-Dialysis 63 BPM Standing Heart Rate Pre-Dialysis 70 BPM Standing Heart Rate Post-Dialysis 75 BPM Temperature Pre-Dialysis 98 degF Temperature Post -Dialysis 98 degF November 17, 2024 In-Center Hemodialysis Treatment 2536-53-09E39:05:00.000Z 6323-68-52C75:41:16.000Z BP Sitting (Pre-Dialysis) 140/70 mmHg BP Sitting (Post-Dialysis) 168/79 mmHg Concurrent Access: falseAV Fistula Upper Arm (Right) Arterial BP Standing (Pre-Dialysis) 132/69 mmHg BP Standing (P ost-Dialysis) 163/80 mmHg Sitting Heart Rate Pre-Dialysis 65 BPM Sitting Heart Rate Post-Dialysis 66 BPM Standing Heart Rate Pre-Dialysis 70 BPM Standing Heart Rate Post-Dialysis 65 BPM Temperature Pre-Dialysis 97.6 degF Temperature Post -Dialysis 97.8 degF November 15, 2024 In-Center Hemodialysis Treatment 1572-44-76G83:47:00.000Z 2010-06-14D60:56:22.000Z BP Sitting (Pre-Dialysis) 151/76 mmHg BP Sitting (Post-Dialysis) 185/75 mmHg Concurrent Access: falseAV Fistula Upper Arm (Right) Arterial BP Standing (Pre-Dialysis) 170/70 mmHg BP Standing (P ost-Dialysis) 165/85 mmHg Sitting Heart Rate Pre-Dialysis 78 BPM Sitting Heart Rate Post-Dialysis 65 BPM Standing Heart Rate Pre-Dialysis 83 BPM Standing Heart Rate Post-Dialysis 79 BPM Temperature Pre-Dialysis 98 degF Temperature Post -Dialysis 98 degF November 12, 2024 In-Center Hemodialysis Treatment 8850-13-77V40:09:00.000Z 2822-44-50L64:15:54.000Z BP Sitting (Pre-Dialysis) 135/65 mmHg BP Sitting (Post-Dialysis) 129/68 mmHg Concurrent Access: falseAV Fistula Upper Arm (Right) Arterial BP Standing (Pre-Dialysis) 119/65 mmHg BP Standing (P ost-Dialysis) 113/56 mmHg Sitting Heart Rate Pre-Dialysis 71 BPM Sitting Heart Rate Post-Dialysis 68 BPM Standing Heart Rate Pre-Dialysis 89 BPM Standing Heart Rate Post-Dialysis 81 BPM Temperature Pre-Dialysis 97.6 degF Temperature Post -Dialysis 98.5 degF November 10, 2024 In-Center Hemodialysis Treatment [id number]:28:00.000Z [id number]:34:00.000Z BP Sitting (Pre-Dialysis) 139/68 mmHg BP Sitting (Post-Dialysis) 120/70 mmHg Concurrent Access: falseAV Fistula Upper Arm (Right) Arterial BP Standing (Pre-Dialysis) 124/66 mmHg BP Standing (P ost-Dialysis) 117/66 mmHg Sitting Heart Rate Pre-Dialysis 80 BPM Sitting Heart Rate Post-Dialysis 73 BPM Standing Heart Rate Pre-Dialysis 86 BPM Standing Heart Rate Post-Dialysis 84 BPM Temperature Pre-Dialysis 97.9 degF Temperature Post -Dialysis 97.4 degF November 08, 2024 In-Center Hemodialysis Treatment [id number]:07:00.000Z [id number]:15:17.000Z BP Sitting (Pre-Dialysis) 125/61 mmHg BP Sitting (Post-Dialysis) 145/59 mmHg Concurrent Access: falseAV Fistula Upper Arm (Right) Arterial BP Standing (Pre-Dialysis) 123/62 mmHg BP Standing (P ost-Dialysis) 130/64 mmHg Sitting Heart Rate Pre-Dialysis 67 BPM Sitting Heart Rate Post-Dialysis 61 BPM Standing Heart Rate Pre-Dialysis 74 BPM Standing Heart Rate Post-Dialysis 64 BPM Temperature Pre-Dialysis 98 degF Temperature Post -Dialysis 98 degF November 05, 2024 In-Center Hemodialysis Treatment [id number]:53:20.000Z [id number]:55:02.000Z BP Sitting (Pre-Dialysis) 126/70 mmHg BP Sitting (Post-Dialysis) 139/74 mmHg Concurrent Access: falseAV Fistula Upper Arm (Right) Arterial BP Standing (Pre-Dialysis) 130/65 mmHg BP Standing (P ost-Dialysis) 128/74 mmHg Sitting Heart Rate Pre-Dialysis 75 BPM Sitting Heart Rate Post-Dialysis 66 BPM Standing Heart Rate Pre-Dialysis 75 BPM Standing Heart Rate Post-Dialysis 74 BPM Temperature Pre-Dialysis 98 degF Temperature Post -Dialysis 98.7 degF November 03, 2024 In-Center Hemodialysis Treatment [id number]:37:10.000Z [id number]:43:15.000Z BP Sitting (Pre-Dialysis) 126/61 mmHg BP Sitting (Post-Dialysis) 130/64 mmHg Concurrent Access: falseAV Fistula Upper Arm (Right) Arterial BP Standing (Pre-Dialysis) 113/62 mmHg BP Standing (P ost-Dialysis) 134/61 mmHg Sitting Heart Rate Pre-Dialysis 68 BPM Sitting Heart Rate Post-Dialysis 60 BPM Standing Heart Rate Pre-Dialysis 87 BPM Standing Heart Rate Post-Dialysis 68 BPM Temperature Pre-Dialysis 98 degF Temperature Post -Dialysis 97.8 degF November 01, 2024 In-Center Hemodialysis Treatment [id number]:02:29.000Z [id number]:02:33.000Z BP Sitting (Pre-Dialysis) 124/61 mmHg BP Sitting (Post-Dialysis) 139/70 mmHg Concurrent Access: falseAV Fistula Upper Arm (Right) Arterial BP Standing (Pre-Dialysis) 122/63 mmHg BP Standing (P ost-Dialysis) 131/64 mmHg Sitting Heart Rate Pre-Dialysis 68 BPM Sitting Heart Rate Post-Dialysis 68 BPM Standing Heart Rate Pre-Dialysis 80 BPM Standing Heart Rate Post-Dialysis 65 BPM Temperature Pre-Dialysis 97.3 degF Temperature Post -Dialysis 98 degF October 29, 2024 In-Center Hemodialysis Treatment [id number]:55:39.000Z [id number]:56:43.000Z BP Sitting (Pre-Dialysis) 124/66 mmHg BP Sitting (Post-Dialysis) 149/76 mmHg Concurrent Access: falseAV Fistula Upper Arm (Right) Arterial BP Standing (Pre-Dialysis) 123/73 mmHg BP Standing (P ost-Dialysis) 124/72 mmHg Sitting Heart Rate Pre-Dialysis 72 BPM Sitting Heart Rate Post-Dialysis 66 BPM Standing Heart Rate Pre-Dialysis 88 BPM Standing Heart Rate Post-Dialysis 76 BPM Temperature Pre-Dialysis 98.3 degF Temperature Post -Dialysis 98.4 degF October 27, 2024 In-Center Hemodialysis Treatment [id number]:54:16.000Z [id number]:55:20.000Z BP Sitting (Pre-Dialysis) 128/70 mmHg BP Sitting (Post-Dialysis) 125/70 mmHg Concurrent Access: falseAV Fistula Upper Arm (Right) Arterial BP Standing (Pre-Dialysis) 127/55 mmHg BP Standing (P ost-Dialysis) 124/71 mmHg Sitting Heart Rate Pre-Dialysis 78 BPM Sitting Heart Rate Post-Dialysis 75 BPM Standing Heart Rate Pre-Dialysis 93 BPM Standing Heart Rate Post-Dialysis 82 BPM Temperature Pre-Dialysis 98 degF Temperature Post -Dialysis 97.6 degF October 25, 2024 In-Center Hemodialysis Treatment [id number]:54:41.000Z [id number]:55:46.000Z BP Sitting (Pre-Dialysis) 130/73 mmHg BP Sitting (Post-Dialysis) 137/71 mmHg Concurrent Access: falseAV Fistula Upper Arm (Right) Arterial Sitting Heart Rate Pre-Dialysis 76 BPM BP Standing (Post-Dialysis) 139/73 mmHg Temperature Pre-Dialysis 98.4 degF Sitting Heart Ra te Post-Dialysis 71 BPM Standing Heart Rate Post-Sammi lysis 78 BPM Temperature Post-Dialysis 98 degF October 22, 2024 In-Center Hemodialysis Treatment [id number]:50:00.000Z 2993-73-94K67:54:46.000Z BP Sitting (Pre-Dialysis) 14/62 mmHg BP Sitting (Post-Dialysis) 126/58 mmHg Concurrent Access: falseAV Fistula Upper Arm (Right) Arterial BP Standing (Pre-Dialysis) 117/57 mmHg BP Standing (P ost-Dialysis) 107/55 mmHg Sitting Heart Rate Pre-Dialysis 79 BPM Sitting Heart Rate Post-Dialysis 73 BPM Standing Heart Rate Pre-Dialysis 86 BPM Standing Heart Rate Post-Dialysis 69 BPM Temperature Pre-Dialysis 98 degF Temperature Post -Dialysis 97.2 degF October 20, 2024 In-Center Hemodialysis Treatment [id number]:51:33.000Z [id number]:55:38.000Z BP Sitting (Pre-Dialysis) 127/67 mmHg BP Sitting (Post-Dialysis) 140/66 mmHg Concurrent Access: falseAV Fistula Upper Arm (Right) Arterial BP Standing (Pre-Dialysis) 127/72 mmHg BP Standing (P ost-Dialysis) 124/61 mmHg Sitting Heart Rate Pre-Dialysis 72 BPM Sitting Heart Rate Post-Dialysis 69 BPM Standing Heart Rate Pre-Dialysis 72 BPM Standing Heart Rate Post-Dialysis 71 BPM Temperature Pre-Dialysis 98 degF Temperature Post -Dialysis 98 degF October 18, 2024 In-Center Hemodialysis Treatment [id number]:03:00.000Z [id number]:01:05.000Z BP Sitting (Pre-Dialysis) 122/61 mmHg BP Sitting (Post-Dialysis) 142/69 mmHg Concurrent Access: falseAV Fistula Upper Arm (Right) Arterial BP Standing (Pre-Dialysis) 124/66 mmHg BP Standing (P ost-Dialysis) 124/71 mmHg Sitting Heart Rate Pre-Dialysis 56 BPM Sitting Heart Rate Post-Dialysis 62 BPM Standing Heart Rate Pre-Dialysis 61 BPM Standing Heart Rate Post-Dialysis 77 BPM Temperature Pre-Dialysis 97.6 degF Temperature Post -Dialysis 98.3 degF October 15, 2024 In-Center Hemodialysis Treatment [id number]:59:02.000Z 1315-25-84K58:01:07.000Z BP Sitting (Pre-Dialysis) 119/58 mmHg BP Sitting (Post-Dialysis) 135/70 mmHg Concurrent Access: falseAV Fistula Upper Arm (Right) Arterial BP Standing (Pre-Dialysis) 100/55 mmHg BP Standing (P ost-Dialysis) 113/72 mmHg Sitting Heart Rate Pre-Dialysis 62 BPM Sitting Heart Rate Post-Dialysis 66 BPM Standing Heart Rate Pre-Dialysis 73 BPM Standing Heart Rate Post-Dialysis 76 BPM Temperature Pre-Dialysis 97.9 degF Temperature Post -Dialysis 98 degF October 13, 2024 In-Center Hemodialysis Treatment [id number]:02:32.000Z 9579-84-22O82:16:34.000Z BP Sitting (Pre-Dialysis) 122/64 mmHg BP Sitting (Post-Dialysis) 128/68 mmHg Concurrent Access: falseAV Fistula Upper Arm (Right) Arterial BP Standing (Pre-Dialysis) 122/69 mmHg BP Standing (P ost-Dialysis) 116/64 mmHg Sitting Heart Rate Pre-Dialysis 66 BPM Sitting Heart Rate Post-Dialysis 63 BPM Standing Heart Rate Pre-Dialysis 72 BPM Standing Heart Rate Post-Dialysis 68 BPM Temperature Pre-Dialysis 97.8 degF Temperature Post -Dialysis 98.4 degF October 11, 2024 In-Center Hemodialysis Treatment [id number]:03:06.000Z [id number]:06:11.000Z BP Sitting (Pre-Dialysis) 149/75 mmHg BP Sitting (Post-Dialysis) 150/74 mmHg Concurrent Access: falseAV Fistula Upper Arm (Right) Arterial BP Standing (Pre-Dialysis) 147/69 mmHg BP Standing (P ost-Dialysis) 142/70 mmHg Sitting Heart Rate Pre-Dialysis 82 BPM Sitting Heart Rate Post-Dialysis 91 BPM Standing Heart Rate Pre-Dialysis 98 BPM Standing Heart Rate Post-Dialysis 104 BPM Temperature Pre-Dialysis 98.6 degF Temperature Post -Dialysis 100.1 degF October 08, 2024 In-Center Hemodialysis Treatment [id number]:42:32.000Z [id number]:42:37.000Z BP Sitting (Pre-Dialysis) 119/59 mmHg BP Sitting (Post-Dialysis) 133/73 mmHg Concurrent Access: falseAV Fistula Upper Arm (Right) Arterial BP Standing (Pre-Dialysis) 116/66 mmHg BP Standing (P ost-Dialysis) 127/62 mmHg Sitting Heart Rate Pre-Dialysis 65 BPM Sitting Heart Rate Post-Dialysis 70 BPM Standing Heart Rate Pre-Dialysis 71 BPM Standing Heart Rate Post-Dialysis 79 BPM Temperature Pre-Dialysis 97.3 degF Temperature Post -Dialysis 98.1 degF October 06, 2024 In-Center Hemodialysis Treatment [id number]:57:59.000Z 7642-78-18B40:00:04.000Z BP Sitting (Pre-Dialysis) 149/67 mmHg BP Sitting (Post-Dialysis) 125/63 mmHg Concurrent Access: falseAV Fistula Upper Arm (Right) Arterial BP Standing (Pre-Dialysis) 135/77 mmHg BP Standing (P ost-Dialysis) 102/59 mmHg Sitting Heart Rate Pre-Dialysis 59 BPM Sitting Heart Rate Post-Dialysis 67 BPM Standing Heart Rate Pre-Dialysis 65 BPM Standing Heart Rate Post-Dialysis 85 BPM Temperature Pre-Dialysis 97.6 degF Temperature Post -Dialysis 97.5 degF October 04, 2024 In-Center Hemodialysis Treatment [id number]:54:00.000Z 2767-37-40S35:55:35.000Z BP Sitting (Pre-Dialysis) 140/67 mmHg BP Sitting (Post-Dialysis) 144/78 mmHg Concurrent Access: falseAV Fistula Upper Arm (Right) Arterial BP Standing (Pre-Dialysis) 143/64 mmHg Sitti ng Heart Rate Post-Dialysis 66 BPM Sitting Heart Rate Pre-Dialysis 59 BPM Temperatu re Post-Dialysis 98.3 degF Standing Heart Rate Pre-Dialysis 65 BPM Temperature Pre-Dialysis 98 degF October 01, 2024 In-Center Hemodialysis Treatment [id number]:03:45.000Z [id number]:06:49.000Z BP Sitting (Pre-Dialysis) 126/65 mmHg BP Sitting (Post-Dialysis) 147/79 mmHg Concurrent Access: falseAV Fistula Upper Arm (Right) Arterial BP Standing (Pre-Dialysis) 132/69 mmHg BP Standing (P ost-Dialysis) 119/61 mmHg Sitting Heart Rate Pre-Dialysis 64 BPM Sitting Heart Rate Post-Dialysis 67 BPM Standing Heart Rate Pre-Dialysis 70 BPM Standing Heart Rate Post-Dialysis 78 BPM Temperature Pre-Dialysis 97.2 degF Temperature Post -Dialysis 97.6 degF September 29, 2024 In-Center Hemodialysis Treatment [id number]:08:30.000Z [id number]:09:34.000Z BP Sitting (Pre-Dialysis) 149/81 mmHg BP Sitting (Post-Dialysis) 158/82 mmHg Concurrent Access: falseAV Fistula Upper Arm (Right) Arterial BP Standing (Pre-Dialysis) 141/69 mmHg BP Standing (P ost-Dialysis) 174/74 mmHg Sitting Heart Rate Pre-Dialysis 72 BPM Sitting Heart Rate Post-Dialysis 65 BPM Standing Heart Rate Pre-Dialysis 83 BPM Standing Heart Rate Post-Dialysis 70 BPM Temperature Pre-Dialysis 97.6 degF Temperature Post -Dialysis 97.7 degF September 27, 2024 In-Center Hemodialysis Treatment [id number]:57:54.000Z [id number]:55:58.000Z BP Sitting (Pre-Dialysis) 156/79 mmHg BP Sitting (Post-Dialysis) 140/77 mmHg Concurrent Access: falseAV Fistula Upper Arm (Right) Arterial BP Standing (Pre-Dialysis) 151/75 mmHg BP Standing (P ost-Dialysis) 145/83 mmHg Sitting Heart Rate Pre-Dialysis 73 BPM Sitting Heart Rate Post-Dialysis 68 BPM Standing Heart Rate Pre-Dialysis 78 BPM Standing Heart Rate Post-Dialysis 76 BPM Temperature Pre-Dialysis 97.5 degF Temperature Post -Dialysis 98 degF September 24, 2024 In-Center Hemodialysis Treatment [id number]:02:10.000Z 6599-65-45K48:05:15.000Z BP Sitting (Pre-Dialysis) 144/74 mmHg BP Sitting (Post-Dialysis) 136/72 mmHg Concurrent Access: falseAV Fistula Upper Arm (Right) Arterial BP Standing (Pre-Dialysis) 144/77 mmHg BP Standing (P ost-Dialysis) 123/64 mmHg Sitting Heart Rate Pre-Dialysis 73 BPM Sitting Heart Rate Post-Dialysis 65 BPM Standing Heart Rate Pre-Dialysis 84 BPM Standing Heart Rate Post-Dialysis 76 BPM Temperature Pre-Dialysis 98 degF Temperature Post -Dialysis 98.7 degF September 22, 2024 In-Center Hemodialysis Treatment [id number]:58:33.000Z 3094-65-60Z35:54:36.000Z BP Sitting (Pre-Dialysis) 117/72 mmHg BP Sitting (Post-Dialysis) 133/66 mmHg Concurrent Access: falseAV Fistula Upper Arm (Right) Arterial BP Standing (Pre-Dialysis) 130/70 mmHg BP Standing (P ost-Dialysis) 117/68 mmHg Sitting Heart Rate Pre-Dialysis 78 BPM Sitting Heart Rate Post-Dialysis 72 BPM Standing Heart Rate Pre-Dialysis 85 BPM Standing Heart Rate Post-Dialysis 82 BPM Temperature Pre-Dialysis 97.5 degF Temperature Post -Dialysis 98.8 degF September 20, 2024 In-Center Hemodialysis Treatment [id number]:56:04.000Z [id number]:57:09.000Z BP Sitting (Pre-Dialysis) 148/72 mmHg BP Sitting (Post-Dialysis) 128/67 mmHg Concurrent Access: falseAV Fistula Upper Arm (Right) Arterial BP Standing (Pre-Dialysis) 123/63 mmHg BP Standing (P ost-Dialysis) 108/56 mmHg Sitting Heart Rate Pre-Dialysis 66 BPM Sitting Heart Rate Post-Dialysis 65 BPM Standing Heart Rate Pre-Dialysis 58 BPM Standing Heart Rate Post-Dialysis 80 BPM Temperature Pre-Dialysis 97.9 degF Temperature Post -Dialysis 98.2 degF September 17, 2024 In-Center Hemodialysis Treatment [id number]:03:08.000Z 3072-96-97R90:03:11.000Z BP Sitting (Pre-Dialysis) 150/81 mmHg BP Sitting (Post-Dialysis) 123/74 mmHg Concurrent Access: falseAV Fistula Upper Arm (Right) Arterial BP Standing (Pre-Dialysis) 132/75 mmHg BP Standing (P ost-Dialysis) 117/66 mmHg Sitting Heart Rate Pre-Dialysis 75 BPM Sitting Heart Rate Post-Dialysis 74 BPM Standing Heart Rate Pre-Dialysis 83 BPM Standing Heart Rate Post-Dialysis 82 BPM Temperature Pre-Dialysis 98.1 degF Temperature Post -Dialysis 98.1 degF September 15, 2024 In-Center Hemodialysis Treatment [id number]:59:42.000Z 5568-90-62Q33:01:47.000Z BP Sitting (Pre-Dialysis) 138/70 mmHg BP Sitting (Post-Dialysis) 151/64 mmHg Concurrent Access: falseAV Fistula Upper Arm (Right) Arterial BP Standing (Pre-Dialysis) 129/68 mmHg BP Standing (P ost-Dialysis) 130/86 mmHg Sitting Heart Rate Pre-Dialysis 73 BPM Sitting Heart Rate Post-Dialysis 64 BPM Standing Heart Rate Pre-Dialysis 84 BPM Standing Heart Rate Post-Dialysis 90 BPM Temperature Pre-Dialysis 97.2 degF Temperature Post -Dialysis 98.5 degF 2024 In-Center Hemodialysis Treatment [id number]:08:18.000Z 6155-08-00I24:08:22.000Z BP Sitting (Pre-Dialysis) 135/70 mmHg BP Sitting (Post-Dialysis) 136/75 mmHg Concurrent Access: falseAV Fistula Upper Arm (Right) Arterial BP Standing (Pre-Dialysis) 137/69 mmHg BP Standing (P ost-Dialysis) 105/54 mmHg Sitting Heart Rate Pre-Dialysis 66 BPM Sitting Heart Rate Post-Dialysis 70 BPM Standing Heart Rate Pre-Dialysis 78 BPM Standing Heart Rate Post-Dialysis 83 BPM Temperature Pre-Dialysis 97.7 degF Temperature Post -Dialysis 97.6 degF September 10, 2024 In-Center Hemodialysis Treatment [id number]:36:00.000Z 5196-28-03K74:28:19.000Z BP Sitting (Pre-Dialysis) 135/68 mmHg BP Sitting (Post-Dialysis) 122/78 mmHg Concurrent Access: falseAV Fistula Upper Arm (Right) Arterial BP Standing (Pre-Dialysis) 115/61 mmHg BP Standing (P ost-Dialysis) 126/63 mmHg Sitting Heart Rate Pre-Dialysis 75 BPM Sitting Heart Rate Post-Dialysis 71 BPM Standing Heart Rate Pre-Dialysis 88 BPM Standing Heart Rate Post-Dialysis 78 BPM Temperature Pre-Dialysis 97.6 degF Temperature Post -Dialysis 98 degF September 08, 2024 In-Center Hemodialysis Treatment [id number]:00:57.000Z 1274-92-17S91:04:01.000Z BP Sitting (Pre-Dialysis) 121/63 mmHg BP Sitting (Post-Dialysis) 130/54 mmHg Concurrent Access: falseAV Fistula Upper Arm (Right) Arterial BP Standing (Pre-Dialysis) 106/58 mmHg BP Standing (P ost-Dialysis) 118/59 mmHg Sitting Heart Rate Pre-Dialysis 75 BPM Sitting Heart Rate Post-Dialysis 73 BPM Standing Heart Rate Pre-Dialysis 88 BPM Standing Heart Rate Post-Dialysis 92 BPM Temperature Pre-Dialysis 97.7 degF Temperature Post -Dialysis 97.2 degF September 06, 2024 In-Center Hemodialysis Treatment [id number]:45:24.000Z 2969-93-31Y14:31:28.000Z BP Sitting (Pre-Dialysis) 136/70 mmHg BP Sitting (Post-Dialysis) 130/65 mmHg Concurrent Access: falseAV Fistula Upper Arm (Right) Arterial BP Standing (Pre-Dialysis) 134/58 mmHg BP Standing (P ost-Dialysis) 126/55 mmHg Sitting Heart Rate Pre-Dialysis 59 BPM Sitting Heart Rate Post-Dialysis 60 BPM Standing Heart Rate Pre-Dialysis 73 BPM Standing Heart Rate Post-Dialysis 82 BPM Temperature Pre-Dialysis 97.4 degF Temperature Post -Dialysis 98.2 degF September 03, 2024 In-Center Hemodialysis Treatment [id number]:07:05.000Z 0078-76-59P73:12:09.000Z BP Sitting (Pre-Dialysis) 133/69 mmHg BP Sitting (Post-Dialysis) 148/90 mmHg Concurrent Access: falseAV Fistula Upper Arm (Right) Arterial BP Standing (Pre-Dialysis) 128/70 mmHg BP Standing (P ost-Dialysis) 122/64 mmHg Sitting Heart Rate Pre-Dialysis 72 BPM Sitting Heart Rate Post-Dialysis 63 BPM Standing Heart Rate Pre-Dialysis 80 BPM Standing Heart Rate Post-Dialysis 81 BPM Temperature Pre-Dialysis 97.3 degF Temperature Post -Dialysis 98.8 degF September 01, 2024 In-Center Hemodialysis Treatment [id number]:07:48.000Z [id number]:06:52.000Z BP Sitting (Pre-Dialysis) 141/71 mmHg BP Sitting (Post-Dialysis) 143/74 mmHg Concurrent Access: falseAV Fistula Upper Arm (Right) Arterial BP Standing (Pre-Dialysis) 128/70 mmHg BP Standing (P ost-Dialysis) 126/73 mmHg Sitting Heart Rate Pre-Dialysis 68 BPM Sitting Heart Rate Post-Dialysis 70 BPM Standing Heart Rate Pre-Dialysis 82 BPM Standing Heart Rate Post-Dialysis 88 BPM Temperature Pre-Dialysis 97.8 degF Temperature Post -Dialysis 98.8 degF August 30, 2024 In-Center Hemodialysis Treatment [id number]:02:14.000Z [id number]:03:18.000Z BP Sitting (Pre-Dialysis) 109/57 mmHg BP Sitting (Post-Dialysis) 141/70 mmHg Concurrent Access: falseAV Fistula Upper Arm (Right) Arterial BP Standing (Pre-Dialysis) 103/56 mmHg BP Standing (P ost-Dialysis) 124/70 mmHg Sitting Heart Rate Pre-Dialysis 72 BPM Sitting Heart Rate Post-Dialysis 58 BPM Standing Heart Rate Pre-Dialysis 77 BPM Standing Heart Rate Post-Dialysis 66 BPM Temperature Pre-Dialysis 97.7 degF Temperature Post -Dialysis 98 degF August 27, 2024 In-Center Hemodialysis Treatment 8830-67-70L86:02:43.000Z 2816-16-96E08:05:48.000Z BP Sitting (Pre-Dialysis) 134/67 mmHg BP Sitting (Post-Dialysis) 143/72 mmHg Concurrent Access: falseAV Fistula Upper Arm (Right) Arterial BP Standing (Pre-Dialysis) 125/69 mmHg BP Standing (P ost-Dialysis) 139/69 mmHg Sitting Heart Rate Pre-Dialysis 72 BPM Sitting Heart Rate Post-Dialysis 70 BPM Standing Heart Rate Pre-Dialysis 86 BPM Standing Heart Rate Post-Dialysis 81 BPM Temperature Pre-Dialysis 97.5 degF Temperature Post -Dialysis 97.5 degF August 25, 2024 In-Center Hemodialysis Treatment 6477-09-65U96:06:00.000Z [id number]:09:12.000Z BP Sitting (Pre-Dialysis) 141/71 mmHg BP Sitting (Post-Dialysis) 141/75 mmHg Concurrent Access: falseAV Fistula Upper Arm (Right) Arterial BP Standing (Pre-Dialysis) 119/66 mmHg BP Standing (P ost-Dialysis) 126/57 mmHg Sitting Heart Rate Pre-Dialysis 83 BPM Sitting Heart Rate Post-Dialysis 74 BPM Standing Heart Rate Pre-Dialysis 92 BPM Standing Heart Rate Post-Dialysis 85 BPM Temperature Pre-Dialysis 97.9 degF Temperature Post -Dialysis 98.3 degF August 23, 2024 In-Center Hemodialysis Treatment [id number]:00:37.000Z [id number]:58:41.000Z BP Sitting (Pre-Dialysis) 128/66 mmHg BP Sitting (Post-Dialysis) 148/78 mmHg Concurrent Access: falseAV Fistula Upper Arm (Right) Arterial BP Standing (Pre-Dialysis) 127/69 mmHg BP Standing (P ost-Dialysis) 132/70 mmHg Sitting Heart Rate Pre-Dialysis 70 BPM Sitting Heart Rate Post-Dialysis 63 BPM Standing Heart Rate Pre-Dialysis 78 BPM Standing Heart Rate Post-Dialysis 76 BPM Temperature Pre-Dialysis 97.7 degF Temperature Post -Dialysis 98.4 degF August 20, 2024 In-Center Hemodialysis Treatment [id number]:59:48.000Z 1727-45-74E51:01:53.000Z BP Sitting (Pre-Dialysis) 140/73 mmHg BP Sitting (Post-Dialysis) 130/73 mmHg Concurrent Access: falseAV Fistula Upper Arm (Right) Arterial BP Standing (Pre-Dialysis) 118/65 mmHg BP Standing (P ost-Dialysis) 120/68 mmHg Sitting Heart Rate Pre-Dialysis 77 BPM Sitting Heart Rate Post-Dialysis 78 BPM Standing Heart Rate Pre-Dialysis 95 BPM Standing Heart Rate Post-Dialysis 88 BPM Temperature Pre-Dialysis 97.2 degF Temperature Post -Dialysis 97 degF August 18, 2024 In-Center Hemodialysis Treatment [id number]:59:15.000Z [id number]:56:19.000Z BP Sitting (Pre-Dialysis) 140/74 mmHg BP Sitting (Post-Dialysis) 150/79 mmHg Concurrent Access: falseAV Fistula Upper Arm (Right) Arterial BP Standing (Pre-Dialysis) 124/64 mmHg BP Standing (P ost-Dialysis) 133/57 mmHg Sitting Heart Rate Pre-Dialysis 67 BPM Sitting Heart Rate Post-Dialysis 70 BPM Standing Heart Rate Pre-Dialysis 77 BPM Standing Heart Rate Post-Dialysis 83 BPM Temperature Pre-Dialysis 97 degF Temperature Post -Dialysis 98.3 degF August 16, 2024 In-Center Hemodialysis Treatment [id number]:05:42.000Z [id number]:55:46.000Z BP Sitting (Pre-Dialysis) 140/76 mmHg BP Sitting (Post-Dialysis) 144/77 mmHg Concurrent Access: falseAV Fistula Upper Arm (Right) Arterial BP Standing (Pre-Dialysis) 144/74 mmHg BP Standing (P ost-Dialysis) 142/68 mmHg Sitting Heart Rate Pre-Dialysis 62 BPM Sitting Heart Rate Post-Dialysis 68 BPM Standing Heart Rate Pre-Dialysis 69 BPM Standing Heart Rate Post-Dialysis 78 BPM Temperature Pre-Dialysis 97.9 degF Temperature Post -Dialysis 98 degF August 13, 2024 In-Center Hemodialysis Treatment [id number]:51:58.000Z [id number]:52:03.000Z BP Sitting (Pre-Dialysis) 166/76 mmHg BP Sitting (Post-Dialysis) 149/78 mmHg Concurrent Access: falseAV Fistula Upper Arm (Right) Arterial BP Standing (Pre-Dialysis) 153/84 mmHg BP Standing (P ost-Dialysis) 139/77 mmHg Sitting Heart Rate Pre-Dialysis 71 BPM Sitting Heart Rate Post-Dialysis 68 BPM Standing Heart Rate Pre-Dialysis 77 BPM Standing Heart Rate Post-Dialysis 79 BPM Temperature Pre-Dialysis 97.2 degF Temperature Post -Dialysis 98.1 degF August 11, 2024 In-Center Hemodialysis Treatment [id number]:06:47.000Z [id number]:07:50.000Z BP Sitting (Pre-Dialysis) 137/71 mmHg BP Sitting (Post-Dialysis) 162/81 mmHg Concurrent Access: falseAV Fistula Upper Arm (Right) Arterial BP Standing (Pre-Dialysis) 129/61 mmHg BP Standing (P ost-Dialysis) 148/78 mmHg Sitting Heart Rate Pre-Dialysis 74 BPM Sitting Heart Rate Post-Dialysis 69 BPM Standing Heart Rate Pre-Dialysis 78 BPM Standing Heart Rate Post-Dialysis 87 BPM Temperature Pre-Dialysis 98.1 degF Temperature Post -Dialysis 98.2 degF August 09, 2024 In-Center Hemodialysis Treatment [id number]:17:00.000Z [id number]:08:14.000Z BP Sitting (Pre-Dialysis) 141/74 mmHg BP Sitting (Post-Dialysis) 165/79 mmHg Concurrent Access: falseAV Fistula Upper Arm (Right) Arterial Sitting Heart Rate Pre-Dialysis 77 BPM BP Standing (Post-Dialysis) 139/58 mmHg Temperature Pre-Dialysis 97.6 degF Sitting Heart Ra te Post-Dialysis 61 BPM Standing Heart Rate Post-Sammi lysis 88 BPM Temperature Post-Dialysis 97 .9 degF August 06, 2024 In-Center Hemodialysis Treatment 4884-48-54U88:12:08.000Z 0586-44-01E61:15:11.000Z BP Sitting (Pre-Dialysis) 124/69 mmHg BP Sitting (Post-Dialysis) 133/75 mmHg Concurrent Access: falseAV Fistula Upper Arm (Right) Arterial BP Standing (Pre-Dialysis) 129/70 mmHg BP Standing (P ost-Dialysis) 125/61 mmHg Sitting Heart Rate Pre-Dialysis 86 BPM Sitting Heart Rate Post-Dialysis 75 BPM Standing Heart Rate Pre-Dialysis 89 BPM Standing Heart Rate Post-Dialysis 82 BPM Temperature Pre-Dialysis 97.3 degF Temperature Post -Dialysis 97.7 degF August 04, 2024 In-Center Hemodialysis Treatment [id number]:08:13.000Z [id number]:07:16.000Z BP Sitting (Pre-Dialysis) 141/71 mmHg BP Sitting (Post-Dialysis) 136/73 mmHg Concurrent Access: falseAV Fistula Upper Arm (Right) Arterial BP Standing (Pre-Dialysis) 127/73 mmHg BP Standing (P ost-Dialysis) 113/59 mmHg Sitting Heart Rate Pre-Dialysis 75 BPM Sitting Heart Rate Post-Dialysis 73 BPM Standing Heart Rate Pre-Dialysis 84 BPM Standing Heart Rate Post-Dialysis 93 BPM Temperature Pre-Dialysis 97.2 degF Temperature Post -Dialysis 98.6 degF August 02, 2024 In-Center Hemodialysis Treatment [id number]:01:53.000Z [id number]:01:57.000Z BP Sitting (Pre-Dialysis) 140/76 mmHg BP Sitting (Post-Dialysis) 133/74 mmHg Concurrent Access: falseAV Fistula Upper Arm (Right) Arterial BP Standing (Pre-Dialysis) 137/71 mmHg BP Standing (P ost-Dialysis) 145/84 mmHg Sitting Heart Rate Pre-Dialysis 65 BPM Sitting Heart Rate Post-Dialysis 66 BPM Standing Heart Rate Pre-Dialysis 69 BPM Standing Heart Rate Post-Dialysis 70 BPM Temperature Pre-Dialysis 97.2 degF Temperature Post -Dialysis 97.6 degF July 30, 2024 In-Center Hemodialysis Treatment [id number]:03:56.000Z [id number]:05:59.000Z BP Sitting (Pre-Dialysis) 142/80 mmHg BP Sitting (Post-Dialysis) 163/86 mmHg Concurrent Access: falseAV Fistula Upper Arm (Right) Arterial BP Standing (Pre-Dialysis) 145/73 mmHg BP Standing (P ost-Dialysis) 156/86 mmHg Sitting Heart Rate Pre-Dialysis 70 BPM Sitting Heart Rate Post-Dialysis 78 BPM Standing Heart Rate Pre-Dialysis 80 BPM Standing Heart Rate Post-Dialysis 78 BPM Temperature Pre-Dialysis 97.4 degF Temperature Post -Dialysis 98 degF July 28, 2024 In-Center Hemodialysis Treatment [id number]:02:34.000Z [id number]:02:38.000Z BP Sitting (Pre-Dialysis) 148/78 mmHg BP Sitting (Post-Dialysis) 144/83 mmHg Concurrent Access: falseAV Fistula Upper Arm (Right) Arterial BP Standing (Pre-Dialysis) 156/84 mmHg BP Standing (P ost-Dialysis) 130/72 mmHg Sitting Heart Rate Pre-Dialysis 76 BPM Sitting Heart Rate Post-Dialysis 74 BPM Standing Heart Rate Pre-Dialysis 84 BPM Standing Heart Rate Post-Dialysis 87 BPM Temperature Pre-Dialysis 98.3 degF Temperature Post -Dialysis 97.4 degF July 26, 2024 In-Center Hemodialysis Treatment [id number]:07:12.000Z [id number]:52:17.000Z BP Sitting (Pre-Dialysis) 147/75 mmHg BP Sitting (Post-Dialysis) 172/89 mmHg Concurrent Access: falseAV Fistula Upper Arm (Right) Arterial BP Standing (Pre-Dialysis) 147/72 mmHg Sitti ng Heart Rate Post-Dialysis 67 BPM Sitting Heart Rate Pre-Dialysis 68 BPM Temperatu re Post-Dialysis 98.4 degF Standing Heart Rate Pre-Dialysis 72 BPM Temperature Pre-Dialysis 98.2 degF July 23, 2024 In-Center Hemodialysis Treatment [id number]:13:26.000Z 0820-52-54Q63:02:30.000Z BP Sitting (Pre-Dialysis) 145/68 mmHg BP Sitting (Post-Dialysis) 160/80 mmHg Concurrent Access: falseAV Fistula Upper Arm (Right) Arterial BP Standing (Pre-Dialysis) 152/60 mmHg BP Standing (P ost-Dialysis) 135/71 mmHg Sitting Heart Rate Pre-Dialysis 85 BPM Sitting Heart Rate Post-Dialysis 72 BPM Standing Heart Rate Pre-Dialysis 89 BPM Standing Heart Rate Post-Dialysis 86 BPM Temperature Pre-Dialysis 98.2 degF Temperature Post -Dialysis 98.4 degF July 21, 2024 In-Center Hemodialysis Treatment [id number]:05:00.000Z [id number]:08:56.000Z BP Sitting (Pre-Dialysis) 140/79 mmHg BP Sitting (Post-Dialysis) 145/82 mmHg Concurrent Access: falseAV Fistula Upper Arm (Right) Arterial BP Standing (Pre-Dialysis) 150/114 mmHg BP Standing (P ost-Dialysis) 140/80 mmHg Sitting Heart Rate Pre-Dialysis 76 BPM Sitting Heart Rate Post-Dialysis 71 BPM Standing Heart Rate Pre-Dialysis 69 BPM Standing Heart Rate Post-Dialysis 79 BPM Temperature Pre-Dialysis 98 degF Temperature Post -Dialysis 98.3 degF July 19, 2024 In-Center Hemodialysis Treatment [id number]:04:21.000Z 7065-61-91P31:09:25.000Z BP Sitting (Pre-Dialysis) 141/69 mmHg BP Sitting (Post-Dialysis) 156/73 mmHg Concurrent Access: falseAV Fistula Upper Arm (Right) Arterial Sitting Heart Rate Pre-Dialysis 84 BPM BP Standi ng (Post-Dialysis) 148/69 mmHg Temperature Pre-Dialysis 98 degF Sitting Heart Ra te Post-Dialysis 67 BPM Standing Heart Rate Post-Sammi lysis 66 BPM Temperature Post-Dialysis 97 .8 degF July 16, 2024 In-Center Hemodialysis Treatment 9550-44-02Z42:14:00.000Z 6615-38-07P64:15:32.000Z BP Sitting (Pre-Dialysis) 137/69 mmHg BP Sitting (Post-Dialysis) 150/71 mmHg Concurrent Access: falseAV Fistula Upper Arm (Right) Arterial BP Standing (Pre-Dialysis) 134/70 mmHg BP Standing (P ost-Dialysis) 132/69 mmHg Sitting Heart Rate Pre-Dialysis 79 BPM Sitting Heart Rate Post-Dialysis 79 BPM Standing Heart Rate Pre-Dialysis 85 BPM Standing Heart Rate Post-Dialysis 93 BPM Temperature Pre-Dialysis 97.8 degF Temperature Post -Dialysis 98.6 degF July 14, 2024 In-Center Hemodialysis Treatment [id number]:00:00.000Z 8346-04-59I42:03:02.000Z BP Sitting (Pre-Dialysis) 170/79 mmHg BP Sitting (Post-Dialysis) 161/86 mmHg Concurrent Access: falseAV Fistula Upper Arm (Right) Arterial BP Standing (Pre-Dialysis) 163/82 mmHg BP Standing (P ost-Dialysis) 156/87 mmHg Sitting Heart Rate Pre-Dialysis 72 BPM Sitting Heart Rate Post-Dialysis 70 BPM Standing Heart Rate Pre-Dialysis 86 BPM Standing Heart Rate Post-Dialysis 74 BPM Temperature Pre-Dialysis 97.6 degF Temperature Post -Dialysis 97.4 degF July 12, 2024 In-Center Hemodialysis Treatment [id number]:01:25.000Z [id number]:02:28.000Z BP Sitting (Pre-Dialysis) 147/80 mmHg BP Sitting (Post-Dialysis) 143/77 mmHg Concurrent Access: falseAV Fistula Upper Arm (Right) Arterial BP Standing (Pre-Dialysis) 154/75 mmHg BP Standing (P ost-Dialysis) 145/77 mmHg Sitting Heart Rate Pre-Dialysis 75 BPM Sitting Heart Rate Post-Dialysis 68 BPM Standing Heart Rate Pre-Dialysis 80 BPM Standing Heart Rate Post-Dialysis 79 BPM Temperature Pre-Dialysis 98.1 degF Temperature Post -Dialysis 98.1 degF July 09, 2024 In-Center Hemodialysis Treatment [id number]:05:35.000Z [id number]:10:40.000Z BP Sitting (Pre-Dialysis) 139/82 mmHg BP Sitting (Post-Dialysis) 179/87 mmHg Concurrent Access: falseAV Fistula Upper Arm (Right) Arterial BP Standing (Pre-Dialysis) 172/82 mmHg BP Standing (P ost-Dialysis) 163/87 mmHg Sitting Heart Rate Pre-Dialysis 77 BPM Sitting Heart Rate Post-Dialysis 61 BPM Standing Heart Rate Pre-Dialysis 77 BPM Standing Heart Rate Post-Dialysis 69 BPM Temperature Pre-Dialysis 97.4 degF Temperature Post -Dialysis 98.2 degF July 07, 2024 In-Center Hemodialysis Treatment [id number]:55:01.000Z [id number]:56:05.000Z BP Sitting (Pre-Dialysis) 147/72 mmHg BP Sitting (Post-Dialysis) 136/77 mmHg Concurrent Access: falseAV Fistula Upper Arm (Right) Arterial BP Standing (Pre-Dialysis) 127/70 mmHg BP Standing (P ost-Dialysis) 119/70 mmHg Sitting Heart Rate Pre-Dialysis 77 BPM Sitting Heart Rate Post-Dialysis 73 BPM Standing Heart Rate Pre-Dialysis 89 BPM Standing Heart Rate Post-Dialysis 85 BPM Temperature Pre-Dialysis 97.5 degF Temperature Post -Dialysis 99 degF July 05, 2024 In-Center Hemodialysis Treatment [id number]:01:19.000Z [id number]:02:23.000Z BP Sitting (Pre-Dialysis) 144/76 mmHg BP Sitting (Post-Dialysis) 146/83 mmHg Concurrent Access: falseAV Fistula Upper Arm (Right) Arterial BP Standing (Pre-Dialysis) 147/70 mmHg BP Standing (P ost-Dialysis) 141/77 mmHg Sitting Heart Rate Pre-Dialysis 67 BPM Sitting Heart Rate Post-Dialysis 69 BPM Standing Heart Rate Pre-Dialysis 67 BPM Standing Heart Rate Post-Dialysis 70 BPM Temperature Pre-Dialysis 98.2 degF Temperature Post -Dialysis 98.4 degF July 02, 2024 In-Center Hemodialysis Treatment [id number]:08:39.000Z [id number]:11:44.000Z BP Sitting (Pre-Dialysis) 147/76 mmHg BP Sitting (Post-Dialysis) 160/82 mmHg Concurrent Access: falseAV Fistula Upper Arm (Right) Arterial BP Standing (Pre-Dialysis) 134/83 mmHg BP Standing (P ost-Dialysis) 151/82 mmHg Sitting Heart Rate Pre-Dialysis 79 BPM Sitting Heart Rate Post-Dialysis 75 BPM Standing Heart Rate Pre-Dialysis 82 BPM Standing Heart Rate Post-Dialysis 78 BPM Temperature Pre-Dialysis 97.7 degF Temperature Post -Dialysis 97.6 degF June 30, 2024 In-Center Hemodialysis Treatment [id number]:52:17.000Z 7930-75-95V64:53:21.000Z BP Sitting (Pre-Dialysis) 142/64 mmHg BP Sitting (Post-Dialysis) 149/84 mmHg Concurrent Access: falseAV Fistula Upper Arm (Right) Arterial BP Standing (Pre-Dialysis) 125/70 mmHg BP Standing (P ost-Dialysis) 160/79 mmHg Sitting Heart Rate Pre-Dialysis 83 BPM Sitting Heart Rate Post-Dialysis 72 BPM Standing Heart Rate Pre-Dialysis 81 BPM Standing Heart Rate Post-Dialysis 85 BPM Temperature Pre-Dialysis 97.6 degF Temperature Post -Dialysis 98.3 degF June 28, 2024 In-Center Hemodialysis Treatment [id number]:05:00.000Z [id number]:09:48.000Z BP Sitting (Pre-Dialysis) 131/67 mmHg BP Sitting (Post-Dialysis) 158/84 mmHg Concurrent Access: falseAV Fistula Upper Arm (Right) Arterial BP Standing (Pre-Dialysis) 133/73 mmHg BP Standing (P ost-Dialysis) 161/65 mmHg Sitting Heart Rate Pre-Dialysis 77 BPM Sitting Heart Rate Post-Dialysis 64 BPM Standing Heart Rate Pre-Dialysis 83 BPM Standing Heart Rate Post-Dialysis 84 BPM Temperature Pre-Dialysis 97.5 degF Temperature Post -Dialysis 97.1 degF June 25, 2024 In-Center Hemodialysis Treatment [id number]:15:27.000Z [id number]:11:31.000Z BP Sitting (Pre-Dialysis) 145/75 mmHg BP Sitting (Post-Dialysis) 142/68 mmHg Concurrent Access: falseAV Fistula Upper Arm (Right) Arterial BP Standing (Pre-Dialysis) 144/70 mmHg BP Standing (P ost-Dialysis) 148/77 mmHg Sitting Heart Rate Pre-Dialysis 76 BPM Sitting Heart Rate Post-Dialysis 75 BPM Standing Heart Rate Pre-Dialysis 81 BPM Standing Heart Rate Post-Dialysis 82 BPM Temperature Pre-Dialysis 97.6 degF Temperature Post -Dialysis 98.6 degF June 23, 2024 In-Center Hemodialysis Treatment [id number]:02:53.000Z 3838-69-20K90:02:58.000Z BP Sitting (Pre-Dialysis) 125/71 mmHg BP Sitting (Post-Dialysis) 153/69 mmHg Concurrent Access: falseAV Fistula Upper Arm (Right) Arterial BP Standing (Pre-Dialysis) 135/70 mmHg BP Standing (P ost-Dialysis) 135/77 mmHg Sitting Heart Rate Pre-Dialysis 75 BPM Sitting Heart Rate Post-Dialysis 74 BPM Standing Heart Rate Pre-Dialysis 82 BPM Standing Heart Rate Post-Dialysis 85 BPM Temperature Pre-Dialysis 97.4 degF Temperature Post -Dialysis 98.5 degF June 21, 2024 In-Center Hemodialysis Treatment 9835-10-22V74:09:00.000Z [id number]:14:41.000Z BP Sitting (Pre-Dialysis) 139/70 mmHg BP Sitting (Post-Dialysis) 157/85 mmHg Concurrent Access: falseAV Fistula Upper Arm (Right) Arterial BP Standing (Pre-Dialysis) 130/71 mmHg BP Standing (P ost-Dialysis) 179/83 mmHg Sitting Heart Rate Pre-Dialysis 78 BPM Sitting Heart Rate Post-Dialysis 69 BPM Standing Heart Rate Pre-Dialysis 92 BPM Standing Heart Rate Post-Dialysis 82 BPM Temperature Pre-Dialysis 97.8 degF Temperature Post -Dialysis 98.1 degF June 19, 2024 In-Center Hemodialysis Treatment [id number]:14:37.000Z [id number]:12:41.000Z BP Sitting (Pre-Dialysis) 148/76 mmHg BP Sitting (Post-Dialysis) 173/90 mmHg Concurrent Access: falseAV Fistula Upper Arm (Right) Arterial BP Standing (Pre-Dialysis) 148/76 mmHg BP Standing (P ost-Dialysis) 153/83 mmHg Sitting Heart Rate Pre-Dialysis 76 BPM Sitting Heart Rate Post-Dialysis 68 BPM Standing Heart Rate Pre-Dialysis 89 BPM Standing Heart Rate Post-Dialysis 91 BPM Temperature Pre-Dialysis 97.6 degF Temperature Post -Dialysis 98.3 degF June 18, 2024 In-Center Hemodialysis Treatment [id number]:56:48.000Z 7462-10-69U07:56:52.000Z BP Sitting (Pre-Dialysis) 173/90 mmHg BP Sitting (Post-Dialysis) 155/77 mmHg Concurrent Access: falseAV Fistula Upper Arm (Right) Arterial BP Standing (Pre-Dialysis) 185/87 mmHg BP Standing (P ost-Dialysis) 164/72 mmHg Sitting Heart Rate Pre-Dialysis 71 BPM Sitting Heart Rate Post-Dialysis 76 BPM Standing Heart Rate Pre-Dialysis 84 BPM Standing Heart Rate Post-Dialysis 95 BPM Temperature Pre-Dialysis 97.6 degF Temperature Post -Dialysis 98.3 degF June 14, 2024 In-Center Hemodialysis Treatment [id number]:21:00.000Z [id number]:24:38.000Z BP Sitting (Pre-Dialysis) 124/65 mmHg BP Sitting (Post-Dialysis) 132/70 mmHg Concurrent Access: falseAV Fistula Upper Arm (Right) Arterial BP Standing (Pre-Dialysis) 129/68 mmHg BP Standing (P ost-Dialysis) 139/80 mmHg Sitting Heart Rate Pre-Dialysis 74 BPM Sitting Heart Rate Post-Dialysis 71 BPM Standing Heart Rate Pre-Dialysis 76 BPM Standing Heart Rate Post-Dialysis 72 BPM Temperature Pre-Dialysis 98 degF Temperature Post -Dialysis 98.7 degF June 11, 2024 In-Center Hemodialysis Treatment [id number]:23:48.000Z [id number]:26:52.000Z BP Sitting (Pre-Dialysis) 155/76 mmHg BP Sitting (Post-Dialysis) 151/85 mmHg Concurrent Access: falseAV Fistula Upper Arm (Right) Arterial BP Standing (Pre-Dialysis) 147/79 mmHg BP Standing (P ost-Dialysis) 147/82 mmHg Sitting Heart Rate Pre-Dialysis 63 BPM Sitting Heart Rate Post-Dialysis 66 BPM Standing Heart Rate Pre-Dialysis 70 BPM Standing Heart Rate Post-Dialysis 70 BPM Temperature Pre-Dialysis 98 degF Temperature Post -Dialysis 98 degF June 09, 2024 In-Center Hemodialysis Treatment [id number]:00:00.000Z 1501-16-01Q81:02:09.000Z BP Sitting (Pre-Dialysis) 142/70 mmHg BP Sitting (Post-Dialysis) 146/74 mmHg Concurrent Access: falseAV Fistula Upper Arm (Right) Arterial BP Standing (Pre-Dialysis) 130/67 mmHg BP Standing (P ost-Dialysis) 133/70 mmHg Sitting Heart Rate Pre-Dialysis 72 BPM Sitting Heart Rate Post-Dialysis 72 BPM Standing Heart Rate Pre-Dialysis 80 BPM Standing Heart Rate Post-Dialysis 81 BPM Temperature Pre-Dialysis 97.3 degF Temperature Post -Dialysis 98.2 degF June 07, 2024 In-Center Hemodialysis Treatment [id number]:25:00.000Z 7756-79-48T70:27:37.000Z BP Sitting (Pre-Dialysis) 147/75 mmHg BP Sitting (Post-Dialysis) 152/72 mmHg Concurrent Access: falseAV Fistula Upper Arm (Right) Arterial BP Standing (Pre-Dialysis) 154/76 mmHg BP Standing (P ost-Dialysis) 149/76 mmHg Sitting Heart Rate Pre-Dialysis 71 BPM Sitting Heart Rate Post-Dialysis 87 BPM Standing Heart Rate Pre-Dialysis 77 BPM Standing Heart Rate Post-Dialysis 87 BPM Temperature Pre-Dialysis 98 degF Temperature Post -Dialysis 98.4 degF June 04, 2024 In-Center Hemodialysis Treatment [id number]:14:02.000Z [id number]:18:07.000Z BP Sitting (Pre-Dialysis) 135/71 mmHg BP Sitting (Post-Dialysis) 147/68 mmHg Concurrent Access: falseAV Fistula Upper Arm (Right) Arterial BP Standing (Pre-Dialysis) 131/69 mmHg BP Standing (P ost-Dialysis) 158/78 mmHg Sitting Heart Rate Pre-Dialysis 81 BPM Sitting Heart Rate Post-Dialysis 67 BPM Standing Heart Rate Pre-Dialysis 88 BPM Standing Heart Rate Post-Dialysis 83 BPM Temperature Pre-Dialysis 97.2 degF Temperature Post -Dialysis 97.4 degF June 02, 2024 In-Center Hemodialysis Treatment 2602-09-51J95:18:29.000Z [id number]:23:34.000Z BP Sitting (Pre-Dialysis) 152/85 mmHg BP Sitting (Post-Dialysis) 133/55 mmHg Concurrent Access: falseAV Fistula Upper Arm (Right) Arterial BP Standing (Pre-Dialysis) 150/77 mmHg BP Standing (P ost-Dialysis) 133/55 mmHg Sitting Heart Rate Pre-Dialysis 74 BPM Sitting Heart Rate Post-Dialysis 63 BPM Standing Heart Rate Pre-Dialysis 84 BPM Standing Heart Rate Post-Dialysis 63 BPM Temperature Pre-Dialysis 97.4 degF Temperature Post -Dialysis 98.2 degF May 31, 2024 In-Center Hemodialysis Treatment 4936-13-21K37:07:16.000Z [id number]:07:19.000Z BP Sitting (Pre-Dialysis) 123/68 mmHg BP Sitting (Post-Dialysis) 157/79 mmHg Concurrent Access: falseAV Fistula Upper Arm (Right) Arterial BP Standing (Pre-Dialysis) 134/71 mmHg BP Standing (P ost-Dialysis) 163/90 mmHg Sitting Heart Rate Pre-Dialysis 75 BPM Sitting Heart Rate Post-Dialysis 71 BPM Standing Heart Rate Pre-Dialysis 70 BPM Standing Heart Rate Post-Dialysis 79 BPM Temperature Pre-Dialysis 98 degF Temperature Post -Dialysis 98.2 degF May 26, 2024 In-Center Hemodialysis Treatment [id number]:33:58.000Z 5559-79-72Y94:51:02.000Z BP Sitting (Pre-Dialysis) 130/70 mmHg BP Sitting (Post-Dialysis) 152/79 mmHg Concurrent Access: falseAV Fistula Upper Arm (Right) Arterial BP Standing (Pre-Dialysis) 130/71 mmHg BP Standing (P ost-Dialysis) 151/79 mmHg Sitting Heart Rate Pre-Dialysis 84 BPM Sitting Heart Rate Post-Dialysis 72 BPM Standing Heart Rate Pre-Dialysis 88 BPM Standing Heart Rate Post-Dialysis 80 BPM Temperature Pre-Dialysis 98.2 degF Temperature Post -Dialysis 98.3 degF May 24, 2024 In-Center Hemodialysis Treatment [id number]:26:31.000Z 5691-82-25R04:25:35.000Z BP Sitting (Pre-Dialysis) 139/73 mmHg BP Sitting (Post-Dialysis) 138/73 mmHg Concurrent Access: falseAV Fistula Upper Arm (Right) Arterial BP Standing (Pre-Dialysis) 129/69 mmHg BP Standing (P ost-Dialysis) 120/66 mmHg Sitting Heart Rate Pre-Dialysis 78 BPM Sitting Heart Rate Post-Dialysis 81 BPM Standing Heart Rate Pre-Dialysis 83 BPM Standing Heart Rate Post-Dialysis 96 BPM Temperature Pre-Dialysis 98.4 degF Temperature Post -Dialysis 98.1 degF May 21, 2024 In-Center Hemodialysis Treatment [id number]:15:12.000Z [id number]:18:15.000Z BP Sitting (Pre-Dialysis) 159/82 mmHg BP Sitting (Post-Dialysis) 142/77 mmHg Concurrent Access: falseAV Fistula Upper Arm (Right) Arterial BP Standing (Pre-Dialysis) 156/71 mmHg BP Standing (P ost-Dialysis) 141/74 mmHg Sitting Heart Rate Pre-Dialysis 71 BPM Sitting Heart Rate Post-Dialysis 76 BPM Standing Heart Rate Pre-Dialysis 83 BPM Standing Heart Rate Post-Dialysis 76 BPM Temperature Pre-Dialysis 97.4 degF Temperature Post -Dialysis 98.8 degF May 19, 2024 In-Center Hemodialysis Treatment [id number]:08:50.000Z 1492-51-05B03:10:54.000Z BP Sitting (Pre-Dialysis) 151/71 mmHg BP Sitting (Post-Dialysis) 131/60 mmHg Concurrent Access: falseAV Fistula Upper Arm (Right) Arterial BP Standing (Pre-Dialysis) 154/78 mmHg BP Standing (P ost-Dialysis) 135/73 mmHg Sitting Heart Rate Pre-Dialysis 69 BPM Sitting Heart Rate Post-Dialysis 76 BPM Standing Heart Rate Pre-Dialysis 78 BPM Standing Heart Rate Post-Dialysis 83 BPM Temperature Pre-Dialysis 98 degF Temperature Post -Dialysis 98 degF May 17, 2024 In-Center Hemodialysis Treatment [id number]:13:58.000Z 8197-68-06L59:15:01.000Z BP Sitting (Pre-Dialysis) 149/83 mmHg BP Sitting (Post-Dialysis) 141/75 mmHg Concurrent Access: falseAV Fistula Upper Arm (Right) Arterial BP Standing (Pre-Dialysis) 148/76 mmHg BP Standing (P ost-Dialysis) 137/75 mmHg Sitting Heart Rate Pre-Dialysis 80 BPM Sitting Heart Rate Post-Dialysis 67 BPM Standing Heart Rate Pre-Dialysis 86 BPM Standing Heart Rate Post-Dialysis 80 BPM Temperature Pre-Dialysis 98 degF Temperature Post -Dialysis 97.3 degF May 14, 2024 In-Center Hemodialysis Treatment 5230-10-50D17:35:00.000Z [id number]:38:23.000Z BP Sitting (Pre-Dialysis) 142/75 mmHg BP Sitting (Post-Dialysis) 140/86 mmHg Concurrent Access: falseAV Fistula Upper Arm (Right) Arterial BP Standing (Pre-Dialysis) 140/72 mmHg BP Standing (P ost-Dialysis) 157/82 mmHg Sitting Heart Rate Pre-Dialysis 66 BPM Sitting Heart Rate Post-Dialysis 75 BPM Standing Heart Rate Pre-Dialysis 78 BPM Standing Heart Rate Post-Dialysis 81 BPM Temperature Pre-Dialysis 97.6 degF Temperature Post -Dialysis 98.3 degF May 12, 2024 In-Center Hemodialysis Treatment 5940-88-18N51:30:00.000Z [id number]:41:26.000Z BP Sitting (Pre-Dialysis) 155/77 mmHg BP Sitting (Post-Dialysis) 160/81 mmHg Concurrent Access: falseAV Fistula Upper Arm (Right) Arterial BP Standing (Pre-Dialysis) 168/85 mmHg BP Standing (P ost-Dialysis) 169/84 mmHg Sitting Heart Rate Pre-Dialysis 71 BPM Sitting Heart Rate Post-Dialysis 73 BPM Standing Heart Rate Pre-Dialysis 82 BPM Standing Heart Rate Post-Dialysis 72 BPM Temperature Pre-Dialysis 98.2 degF Temperature Post -Dialysis 98.3 degF May 10, 2024 In-Center Hemodialysis Treatment 8890-05-55H22:17:21.000Z 8823-20-89K06:19:25.000Z BP Sitting (Pre-Dialysis) 140/73 mmHg BP Sitting (Post-Dialysis) 158/69 mmHg Concurrent Access: falseAV Fistula Upper Arm (Right) Arterial BP Standing (Pre-Dialysis) 146/73 mmHg BP Standing (P ost-Dialysis) 157/77 mmHg Sitting Heart Rate Pre-Dialysis 73 BPM Sitting Heart Rate Post-Dialysis 71 BPM Standing Heart Rate Pre-Dialysis 83 BPM Standing Heart Rate Post-Dialysis 82 BPM Temperature Pre-Dialysis 98 degF Temperature Post -Dialysis 98.3 degF May 07, 2024 In-Center Hemodialysis Treatment [id number]:10:43.000Z 7345-15-76Q40:14:46.000Z BP Sitting (Pre-Dialysis) 138/68 mmHg BP Sitting (Post-Dialysis) 139/63 mmHg Concurrent Access: falseAV Fistula Upper Arm (Right) Arterial Sitting Heart Rate Pre-Dialysis 77 BPM BP Standing (Post-Dialysis) 151/78 mmHg Temperature Pre-Dialysis 97.2 degF Sitting Heart Ra te Post-Dialysis 75 BPM Standing Heart Rate Post-Sammi lysis 85 BPM Temperature Post-Dialysis 97 .6 degF May 05, 2024 In-Center Hemodialysis Treatment [id number]:24:18.000Z 5343-53-23E41:24:22.000Z BP Sitting (Pre-Dialysis) 139/72 mmHg BP Sitting (Post-Dialysis) 142/74 mmHg Concurrent Access: falseAV Fistula Upper Arm (Right) Arterial BP Standing (Pre-Dialysis) 137/70 mmHg BP Standing (P ost-Dialysis) 123/74 mmHg Sitting Heart Rate Pre-Dialysis 74 BPM Sitting Heart Rate Post-Dialysis 74 BPM Standing Heart Rate Pre-Dialysis 76 BPM Standing Heart Rate Post-Dialysis 91 BPM Temperature Pre-Dialysis 96.8 degF Temperature Post -Dialysis 98.1 degF May 03, 2024 In-Center Hemodialysis Treatment 4965-59-11A51:05:21.000Z 6520-64-72I01:10:26.000Z BP Sitting (Pre-Dialysis) 146/78 mmHg BP Sitting (Post-Dialysis) 145/71 mmHg Concurrent Access: falseAV Fistula Upper Arm (Right) Arterial BP Standing (Pre-Dialysis) 147/73 mmHg BP Standing (P ost-Dialysis) 142/65 mmHg Sitting Heart Rate Pre-Dialysis 77 BPM Sitting Heart Rate Post-Dialysis 76 BPM Standing Heart Rate Pre-Dialysis 83 BPM Standing Heart Rate Post-Dialysis 87 BPM Temperature Pre-Dialysis 98.2 degF Temperature Post -Dialysis 97.4 degF April 30, 2024 In-Center Hemodialysis Treatment [id number]:24:16.000Z [id number]:25:19.000Z BP Sitting (Pre-Dialysis) 161/74 mmHg BP Sitting (Post-Dialysis) 165/81 mmHg Concurrent Access: falseAV Fistula Upper Arm (Right) Arterial BP Standing (Pre-Dialysis) 163/84 mmHg BP Standing (P ost-Dialysis) 166/84 mmHg Sitting Heart Rate Pre-Dialysis 71 BPM Sitting Heart Rate Post-Dialysis 71 BPM Standing Heart Rate Pre-Dialysis 67 BPM Standing Heart Rate Post-Dialysis 84 BPM Temperature Pre-Dialysis 97.4 degF Temperature Post -Dialysis 97.4 degF April 28, 2024 In-Center Hemodialysis Treatment 4507-14-68R27:18:22.000Z [id number]:18:25.000Z BP Sitting (Pre-Dialysis) 142/77 mmHg BP Sitting (Post-Dialysis) 154/81 mmHg Concurrent Access: falseAV Fistula Upper Arm (Right) Arterial BP Standing (Pre-Dialysis) 142/75 mmHg BP Standing (P ost-Dialysis) 143/65 mmHg Sitting Heart Rate Pre-Dialysis 78 BPM Sitting Heart Rate Post-Dialysis 75 BPM Standing Heart Rate Pre-Dialysis 87 BPM Standing Heart Rate Post-Dialysis 83 BPM Temperature Pre-Dialysis 97.4 degF Temperature Post -Dialysis 97.4 degF April 26, 2024 In-Center Hemodialysis Treatment 0357-05-81Q62:12:17.000Z 7533-03-37L01:17:22.000Z BP Sitting (Pre-Dialysis) 133/72 mmHg BP Sitting (Post-Dialysis) 140/78 mmHg Concurrent Access: falseAV Fistula Upper Arm (Right) Arterial BP Standing (Pre-Dialysis) 134/63 mmHg Sitting Heart Rate Post-Dialysis 73 BPM Sitting Heart Rate Pre-Dialysis 78 BPM Temperatu re Post-Dialysis 98 degF Standing Heart Rate Pre-Dialysis 89 BPM Temperature Pre-Dialysis 98.2 degF April 23, 2024 In-Center Hemodialysis Treatment 4401-09-89Q37:02:00.000Z 8635-32-05L25:02:32.000Z BP Sitting (Pre-Dialysis) 153/79 mmHg BP Sitting (Post-Dialysis) 143/46 mmHg Concurrent Access: falseAV Fistula Upper Arm (Right) Arterial BP Standing (Pre-Dialysis) 157/74 mmHg BP Standing (P ost-Dialysis) 145/73 mmHg Sitting Heart Rate Pre-Dialysis 74 BPM Sitting Heart Rate Post-Dialysis 50 BPM Standing Heart Rate Pre-Dialysis 80 BPM Standing Heart Rate Post-Dialysis 86 BPM Temperature Pre-Dialysis 98.1 degF Temperature Post -Dialysis 98.1 degF April 21, 2024 In-Center Hemodialysis Treatment 3790-00-56W27:03:27.000Z 0421-31-07P15:02:31.000Z BP Sitting (Pre-Dialysis) 153/73 mmHg BP Sitting (Post-Dialysis) 155/84 mmHg Concurrent Access: falseAV Fistula Upper Arm (Right) Arterial BP Standing (Pre-Dialysis) 153/80 mmHg BP Standing (P ost-Dialysis) 142/78 mmHg Sitting Heart Rate Pre-Dialysis 71 BPM Sitting Heart Rate Post-Dialysis 70 BPM Standing Heart Rate Pre-Dialysis 84 BPM Standing Heart Rate Post-Dialysis 66 BPM Temperature Pre-Dialysis 98.6 degF Temperature Post -Dialysis 97.4 degF April 19, 2024 In-Center Hemodialysis Treatment 0424-77-05M80:56:15.000Z [id number]:56:19.000Z BP Sitting (Pre-Dialysis) 134/68 mmHg BP Sitting (Post-Dialysis) 147/69 mmHg Concurrent Access: falseAV Fistula Upper Arm (Right) Arterial BP Standing (Pre-Dialysis) 132/65 mmHg BP Standing (P ost-Dialysis) 144/63 mmHg Sitting Heart Rate Pre-Dialysis 81 BPM Sitting Heart Rate Post-Dialysis 77 BPM Standing Heart Rate Pre-Dialysis 89 BPM Standing Heart Rate Post-Dialysis 83 BPM Temperature Pre-Dialysis 97.4 degF Temperature Post -Dialysis 97.2 degF April 16, 2024 In-Center Hemodialysis Treatment [id number]:53:20.000Z [id number]:55:25.000Z BP Sitting (Pre-Dialysis) 142/78 mmHg BP Sitting (Post-Dialysis) 138/74 mmHg Concurrent Access: falseAV Fistula Upper Arm (Right) Arterial BP Standing (Pre-Dialysis) 145/71 mmHg BP Standing (P ost-Dialysis) 130/57 mmHg Sitting Heart Rate Pre-Dialysis 80 BPM Sitting Heart Rate Post-Dialysis 78 BPM Standing Heart Rate Pre-Dialysis 82 BPM Standing Heart Rate Post-Dialysis 87 BPM Temperature Pre-Dialysis 98.3 degF Temperature Post -Dialysis 98.1 degF April 14, 2024 In-Center Hemodialysis Treatment [id number]:05:27.000Z [id number]:01:32.000Z BP Sitting (Pre-Dialysis) 168/88 mmHg BP Sitting (Post-Dialysis) 158/86 mmHg Concurrent Access: falseAV Fistula Upper Arm (Right) Arterial Sitting Heart Rate Pre-Dialysis 82 BPM BP Standing (Post-Dialysis) 153/79 mmHg Temperature Pre-Dialysis 98.5 degF Sitting Heart Ra te Post-Dialysis 81 BPM Standing Heart Rate Post-Sammi lysis 91 BPM Temperature Post-Dialysis 97 .2 degF April 12, 2024 In-Center Hemodialysis Treatment 3220-04-32V23:26:27.000Z [id number]:26:30.000Z BP Sitting (Pre-Dialysis) 159/86 mmHg BP Sitting (Post-Dialysis) 173/84 mmHg Concurrent Access: falseAV Fistula Upper Arm (Right) Arterial BP Standing (Pre-Dialysis) 169/80 mmHg BP Standing (P ost-Dialysis) 175/77 mmHg Sitting Heart Rate Pre-Dialysis 85 BPM Sitting Heart Rate Post-Dialysis 70 BPM Standing Heart Rate Pre-Dialysis 86 BPM Standing Heart Rate Post-Dialysis 104 BPM Temperature Pre-Dialysis 98.4 degF Temperature Post -Dialysis 98.8 degF April 09, 2024 In-Center Hemodialysis Treatment [id number]:08:00.000Z 6054-76-79Z77:19:17.000Z BP Sitting (Pre-Dialysis) 141/70 mmHg BP Sitting (Post-Dialysis) 126/69 mmHg Concurrent Access: falseAV Fistula Upper Arm (Right) Arterial BP Standing (Pre-Dialysis) 143/69 mmHg BP Standing (P ost-Dialysis) 132/73 mmHg Sitting Heart Rate Pre-Dialysis 91 BPM Sitting Heart Rate Post-Dialysis 73 BPM Standing Heart Rate Pre-Dialysis 92 BPM Standing Heart Rate Post-Dialysis 83 BPM Temperature Pre-Dialysis 98.2 degF Temperature Post -Dialysis 98.3 degF April 07, 2024 In-Center Hemodialysis Treatment 1576-34-57W12:12:17.000Z 0612-66-61Z87:12:21.000Z BP Sitting (Pre-Dialysis) 161/79 mmHg BP Sitting (Post-Dialysis) 156/66 mmHg Concurrent Access: falseAV Fistula Upper Arm (Right) Arterial Sitting Heart Rate Pre-Dialysis 92 BPM BP Standing (Post-Dialysis) 144/66 mmHg Temperature Pre-Dialysis 98.7 degF Sitting Heart Ra te Post-Dialysis 78 BPM Standing Heart Rate Post-Sammi lysis 92 BPM Temperature Post-Dialysis 98 .6 degF April 05, 2024 In-Center Hemodialysis Treatment [id number]:17:50.000Z 8477-72-27J56:00:54.000Z BP Sitting (Pre-Dialysis) 150/70 mmHg BP Sitting (Post-Dialysis) 132/69 mmHg Concurrent Access: falseAV Fistula Upper Arm (Right) Arterial Sitting Heart Rate Pre-Dialysis 78 BPM BP Standing (Post-Dialysis) 117/65 mmHg Temperature Pre-Dialysis 97.8 degF Sitting Heart Ra te Post-Dialysis 76 BPM Standing Heart Rate Post-Sammi lysis 85 BPM Temperature Post-Dialysis 98 .3 degF April 02, 2024 In-Center Hemodialysis Treatment 3725-38-81F48:25:44.000Z 0608-22-63S16:28:48.000Z BP Sitting (Pre-Dialysis) 126/63 mmHg BP Sitting (Post-Dialysis) 168/72 mmHg Concurrent Access: falseAV Fistula Upper Arm (Right) Arterial Sitting Heart Rate Pre-Dialysis 85 BPM BP Standi ng (Post-Dialysis) 146/84 mmHg Temperature Pre-Dialysis 98 degF Sitting Heart Ra te Post-Dialysis 79 BPM Standing Heart Rate Post-Sammi lysis 87 BPM Temperature Post-Dialysis 97 .9 degF March 31, 2024 In-Center Hemodialysis Treatment 4995-56-16X36:23:00.000Z 3838-18-04O79:25:35.000Z BP Sitting (Pre-Dialysis) 126/68 mmHg BP Sitting (Post-Dialysis) 136/72 mmHg Concurrent Access: falseAV Fistula Upper Arm (Right) Arterial Sitting Heart Rate Pre-Dialysis 78 BPM BP Standing (Post-Dialysis) 126/71 mmHg Temperature Pre-Dialysis 97.9 degF Sitting Heart Ra te Post-Dialysis 77 BPM Standing Heart Rate Post-Sammi lysis 82 BPM Temperature Post-Dialysis 97 degF March 29, 2024 In-Center Hemodialysis Treatment 3948-75-01E90:30:00.000Z 5640-76-21X65:36:50.000Z BP Sitting (Pre-Dialysis) 138/72 mmHg BP Sitting (Post-Dialysis) 131/66 mmHg Concurrent Access: falseAV Fistula Upper Arm (Right) Arterial Sitting Heart Rate Pre-Dialysis 83 BPM Sitting H eart Rate Post-Dialysis 75 BPM Temperature Pre-Dialysis 98.3 degF Temperature Post -Dialysis 97.6 degF March 26, 2024 In-Center Hemodialysis Treatment [id number]:18:55.000Z 3214-54-74I41:20:00.000Z BP Sitting (Pre-Dialysis) 129/78 mmHg BP Sitting (Post-Dialysis) 126/62 mmHg Concurrent Access: falseAV Fistula Upper Arm (Right) Arterial BP Standing (Pre-Dialysis) 154/76 mmHg BP Standing (P ost-Dialysis) 121/63 mmHg Sitting Heart Rate Pre-Dialysis 86 BPM Sitting Heart Rate Post-Dialysis 73 BPM Standing Heart Rate Pre-Dialysis 82 BPM Standing Heart Rate Post-Dialysis 76 BPM Temperature Pre-Dialysis 98.4 degF Temperature Post -Dialysis 98.6 degF March 24, 2024 In-Center Hemodialysis Treatment 4321-69-75B23:04:06.000Z 6622-43-45X03:10:10.000Z BP Sitting (Pre-Dialysis) 156/75 mmHg BP Sitting (Post-Dialysis) 143/71 mmHg Concurrent Access: falseAV Fistula Upper Arm (Right) Arterial Sitting Heart Rate Pre-Dialysis 89 BPM BP Standing (Post-Dialysis) 131/75 mmHg Temperature Pre-Dialysis 97.3 degF Sitting Heart Ra te Post-Dialysis 69 BPM Standing Heart Rate Post-Sammi lysis 75 BPM Temperature Post-Dialysis 97 .5 degF March 22, 2024 In-Center Hemodialysis Treatment 8530-61-31Q14:59:00.000Z 2433-46-67M46:00:58.000Z BP Sitting (Pre-Dialysis) 129/66 mmHg BP Sitting (Post-Dialysis) 139/68 mmHg Concurrent Access: falseAV Fistula Upper Arm (Right) Arterial Sitting Heart Rate Pre-Dialysis 81 BPM BP Standing (Post-Dialysis) 121/69 mmHg Temperature Pre-Dialysis 98.1 degF Sitting Heart Ra te Post-Dialysis 82 BPM Standing Heart Rate Post-Sammi lysis 85 BPM Temperature Post-Dialysis 98 degF March 19, 2024 In-Center Hemodialysis Treatment [id number]:58:37.000Z 6249-26-50A53:59:41.000Z BP Sitting (Pre-Dialysis) 122/65 mmHg BP Sitting (Post-Dialysis) 125/71 mmHg Concurrent Access: falseAV Fistula Upper Arm (Right) Arterial Sitting Heart Rate Pre-Dialysis 88 BPM BP Standing (Post-Dialysis) 127/53 mmHg Temperature Pre-Dialysis 97.5 degF Sitting Heart Ra te Post-Dialysis 80 BPM Standing Heart Rate Post-Sammi lysis 86 BPM Temperature Post-Dialysis 97 .2 degF March 17, 2024 In-Center Hemodialysis Treatment [id number]:07:37.000Z 7760-56-35X08:07:42.000Z BP Sitting (Pre-Dialysis) 114/66 mmHg BP Sitting (Post-Dialysis) 156/84 mmHg Concurrent Access: falseAV Fistula Upper Arm (Right) Arterial Sitting Heart Rate Pre-Dialysis 84 BPM BP Standing (Post-Dialysis) 143/77 mmHg Temperature Pre-Dialysis 98.2 degF Sitting Heart Ra te Post-Dialysis 73 BPM Standing Heart Rate Post-Sammi lysis 79 BPM Temperature Post-Dialysis 98 .1 degF March 15, 2024 In-Center Hemodialysis Treatment 4987-13-80O03:59:00.000Z 3486-32-91Z61:02:20.000Z BP Sitting (Pre-Dialysis) 124/67 mmHg BP Sitting (Post-Dialysis) 152/86 mmHg Concurrent Access: falseAV Fistula Upper Arm (Right) Arterial Sitting Heart Rate Pre-Dialysis 84 BPM Sitting H eart Rate Post-Dialysis 72 BPM Temperature Pre-Dialysis 98 degF Temperature Post -Dialysis 98.7 degF March 12, 2024 In-Center Hemodialysis Treatment 9282-93-22I93:03:37.000Z 3834-15-47N89:54:41.000Z BP Sitting (Pre-Dialysis) 127/70 mmHg BP Sitting (Post-Dialysis) 149/79 mmHg Concurrent Access: falseAV Fistula Upper Arm (Right) Arterial BP Standing (Pre-Dialysis) 109/58 mmHg BP Standing (P ost-Dialysis) 140/59 mmHg Sitting Heart Rate Pre-Dialysis 84 BPM Sitting Heart Rate Post-Dialysis 77 BPM Standing Heart Rate Pre-Dialysis 97 BPM Standing Heart Rate Post-Dialysis 91 BPM Temperature Pre-Dialysis 98.1 degF Temperature Post -Dialysis 97.3 degF March 10, 2024 In-Center Hemodialysis Treatment 4802-65-63K67:07:40.000Z 5587-39-79D34:08:45.000Z BP Sitting (Pre-Dialysis) 102/55 mmHg BP Sitting (Post-Dialysis) 180/80 mmHg Concurrent Access: falseAV Fistula Upper Arm (Right) Arterial Sitting Heart Rate Pre-Dialysis 87 BPM Sitting H eart Rate Post-Dialysis 66 BPM Temperature Pre-Dialysis 97.5 degF Temperature Post -Dialysis 97.5 degF March 08, 2024 In-Center Hemodialysis Treatment [id number]:29:39.000Z 2842-12-02A11:06:42.000Z BP Sitting (Pre-Dialysis) 137/66 mmHg BP Sitting (Post-Dialysis) 122/77 mmHg Concurrent Access: falseAV Fistula Upper Arm (Right) Arterial Sitting Heart Rate Pre-Dialysis 74 BPM Sitting H eart Rate Post-Dialysis 78 BPM Temperature Pre-Dialysis 97.5 degF Temperature Post -Dialysis 97.6 degF March 05, 2024 In-Center Hemodialysis Treatment 5523-71-40G01:04:39.000Z 6453-32-05B16:01:44.000Z BP Sitting (Pre-Dialysis) 144/73 mmHg BP Sitting (Post-Dialysis) 124/67 mmHg Concurrent Access: falseAV Fistula Upper Arm (Right) Arterial Sitting Heart Rate Pre-Dialysis 78 BPM Sitting H eart Rate Post-Dialysis 85 BPM Temperature Pre-Dialysis 97.5 degF Temperature Post -Dialysis 98 degF March 03, 2024 In-Center Hemodialysis Treatment 2252-51-72A30:42:42.000Z 4725-45-58I84:44:45.000Z BP Sitting (Pre-Dialysis) 131/68 mmHg BP Sitting (Post-Dialysis) 116/74 mmHg Concurrent Access: falseAV Fistula Upper Arm (Right) Arterial Sitting Heart Rate Pre-Dialysis 81 BPM Sitting H eart Rate Post-Dialysis 87 BPM Temperature Pre-Dialysis 98.2 degF Temperature Post -Dialysis 97.6 degF February 25, 2024 In-Center Hemodialysis Treatment [id number]:29:32.000Z 3509-91-82U82:22:37.000Z BP Sitting (Pre-Dialysis) 146/81 mmHg BP Sitting (Post-Dialysis) 152/84 mmHg Concurrent Access: falseAV Fistula Upper Arm (Right) Arterial BP Standing (Pre-Dialysis) 142/74 mmHg BP Standing (P ost-Dialysis) 135/68 mmHg Sitting Heart Rate Pre-Dialysis 84 BPM Sitting Heart Rate Post-Dialysis 78 BPM Standing Heart Rate Pre-Dialysis 87 BPM Standing Heart Rate Post-Dialysis 90 BPM Temperature Pre-Dialysis 98.5 degF Temperature Post -Dialysis 98.4 degF February 23, 2024 In-Center Hemodialysis Treatment [id number]:23:22.000Z 3303-04-42A90:14:25.000Z BP Sitting (Pre-Dialysis) 142/74 mmHg BP Sitting (Post-Dialysis) 118/59 mmHg Concurrent Access: falseAV Fistula Upper Arm (Right) Arterial BP Standing (Pre-Dialysis) 144/75 mmHg BP Standing (P ost-Dialysis) 135/70 mmHg Sitting Heart Rate Pre-Dialysis 83 BPM Sitting Heart Rate Post-Dialysis 75 BPM Standing Heart Rate Pre-Dialysis 86 BPM Standing Heart Rate Post-Dialysis 86 BPM Temperature Pre-Dialysis 97.3 degF Temperature Post -Dialysis 98.1 degF February 20, 2024 In-Center Hemodialysis Treatment 3302-06-05V07:53:00.000Z 3142-19-38G94:58:13.000Z BP Sitting (Pre-Dialysis) 154/85 mmHg BP Sitting (Post-Dialysis) 149/87 mmHg Concurrent Access: falseAV Fistula Upper Arm (Right) Arterial BP Standing (Pre-Dialysis) 148/87 mmHg BP Standing (P ost-Dialysis) 144/82 mmHg Sitting Heart Rate Pre-Dialysis 82 BPM Sitting Heart Rate Post-Dialysis 72 BPM Standing Heart Rate Pre-Dialysis 91 BPM Standing Heart Rate Post-Dialysis 81 BPM Temperature Pre-Dialysis 98.2 degF Temperature Post -Dialysis 98.3 degF February 18, 2024 In-Center Hemodialysis Treatment 0520-09-51X61:09:33.000Z 3672-11-05D02:00:37.000Z BP Sitting (Pre-Dialysis) 124/70 mmHg BP Sitting (Post-Dialysis) 135/74 mmHg Concurrent Access: falseAV Fistula Upper Arm (Right) Arterial BP Standing (Pre-Dialysis) 141/76 mmHg BP Standing (P ost-Dialysis) 120/65 mmHg Sitting Heart Rate Pre-Dialysis 86 BPM Sitting Heart Rate Post-Dialysis 73 BPM Standing Heart Rate Pre-Dialysis 77 BPM Standing Heart Rate Post-Dialysis 88 BPM Temperature Pre-Dialysis 97.3 degF Temperature Post -Dialysis 97.6 degF February 16, 2024 In-Center Hemodialysis Treatment 4375-10-05O06:01:32.000Z 5503-62-61H28:00:37.000Z BP Sitting (Pre-Dialysis) 126/71 mmHg BP Sitting (Post-Dialysis) 131/73 mmHg Concurrent Access: falseAV Fistula Upper Arm (Right) Arterial BP Standing (Pre-Dialysis) 130/70 mmHg BP Standing (P ost-Dialysis) 142/67 mmHg Sitting Heart Rate Pre-Dialysis 79 BPM Sitting Heart Rate Post-Dialysis 76 BPM Standing Heart Rate Pre-Dialysis 78 BPM Standing Heart Rate Post-Dialysis 87 BPM Temperature Pre-Dialysis 97.2 degF Temperature Post -Dialysis 98.2 degF February 13, 2024 In-Center Hemodialysis Treatment 3948-60-58Y30:52:50.000Z 1644-82-74S71:31:54.000Z BP Sitting (Pre-Dialysis) 143/73 mmHg BP Sitting (Post-Dialysis) 168/84 mmHg Concurrent Access: falseAV Fistula Upper Arm (Right) Arterial BP Standing (Pre-Dialysis) 138/77 mmHg BP Standing (P ost-Dialysis) 143/81 mmHg Sitting Heart Rate Pre-Dialysis 80 BPM Sitting Heart Rate Post-Dialysis 74 BPM Standing Heart Rate Pre-Dialysis 83 BPM Standing Heart Rate Post-Dialysis 88 BPM Temperature Pre-Dialysis 98.2 degF Temperature Post -Dialysis 98 degF February 11, 2024 In-Center Hemodialysis Treatment 2574-20-56W76:45:00.000Z 1870-08-41X79:32:53.000Z BP Sitting (Pre-Dialysis) 142/85 mmHg BP Sitting (Post-Dialysis) 137/70 mmHg Concurrent Access: falseAV Fistula Upper Arm (Right) Arterial BP Standing (Pre-Dialysis) 145/78 mmHg BP Standing (P ost-Dialysis) 129/75 mmHg Sitting Heart Rate Pre-Dialysis 86 BPM Sitting Heart Rate Post-Dialysis 74 BPM Standing Heart Rate Pre-Dialysis 92 BPM Standing Heart Rate Post-Dialysis 89 BPM Temperature Pre-Dialysis 98.4 degF Temperature Post -Dialysis 98.6 degF February 09, 2024 In-Center Hemodialysis Treatment 8892-07-13I22:48:11.000Z 0697-14-60Y40:48:15.000Z BP Sitting (Pre-Dialysis) 121/65 mmHg BP Sitting (Post-Dialysis) 149/81 mmHg Concurrent Access: falseAV Fistula Upper Arm (Right) Arterial BP Standing (Pre-Dialysis) 130/70 mmHg BP Standing (P ost-Dialysis) 143/62 mmHg Sitting Heart Rate Pre-Dialysis 86 BPM Sitting Heart Rate Post-Dialysis 63 BPM Standing Heart Rate Pre-Dialysis 87 BPM Standing Heart Rate Post-Dialysis 63 BPM Temperature Pre-Dialysis 97.8 degF Temperature Post -Dialysis 97.6 degF February 06, 2024 In-Center Hemodialysis Treatment [id number]:26:39.000Z 4391-96-30H21:27:43.000Z BP Sitting (Pre-Dialysis) 145/83 mmHg BP Sitting (Post-Dialysis) 141/72 mmHg Concurrent Access: falseAV Fistula Upper Arm (Right) Arterial BP Standing (Pre-Dialysis) 143/78 mmHg BP Standing (P ost-Dialysis) 129/71 mmHg Sitting Heart Rate Pre-Dialysis 78 BPM Sitting Heart Rate Post-Dialysis 76 BPM Standing Heart Rate Pre-Dialysis 85 BPM Standing Heart Rate Post-Dialysis 85 BPM Temperature Pre-Dialysis 97.3 degF Temperature Post -Dialysis 97.8 degF February 04, 2024 In-Center Hemodialysis Treatment 9616-48-31B53:49:39.000Z 5250-00-87C59:44:44.000Z BP Sitting (Pre-Dialysis) 125/71 mmHg BP Sitting (Post-Dialysis) 135/71 mmHg Concurrent Access: falseAV Fistula Upper Arm (Right) Arterial BP Standing (Pre-Dialysis) 122/67 mmHg BP Standing (P ost-Dialysis) 101/64 mmHg Sitting Heart Rate Pre-Dialysis 87 BPM Sitting Heart Rate Post-Dialysis 78 BPM Standing Heart Rate Pre-Dialysis 91 BPM Standing Heart Rate Post-Dialysis 71 BPM Temperature Pre-Dialysis 98.2 degF Temperature Post -Dialysis 97.5 degF February 02, 2024 In-Center Hemodialysis Treatment 4163-95-54A49:47:41.000Z 4754-41-24R15:47:45.000Z BP Sitting (Pre-Dialysis) 155/80 mmHg BP Sitting (Post-Dialysis) 158/78 mmHg Concurrent Access: falseAV Fistula Upper Arm (Right) Arterial BP Standing (Pre-Dialysis) 143/78 mmHg BP Standing (P ost-Dialysis) 134/75 mmHg Sitting Heart Rate Pre-Dialysis 80 BPM Sitting Heart Rate Post-Dialysis 72 BPM Standing Heart Rate Pre-Dialysis 87 BPM Standing Heart Rate Post-Dialysis 86 BPM Temperature Pre-Dialysis 98.4 degF Temperature Post -Dialysis 98.1 degF January 30, 2024 In-Center Hemodialysis Treatment 0952-09-04Z20:07:24.000Z 2290-08-05O90:07:28.000Z BP Sitting (Pre-Dialysis) 127/72 mmHg BP Sitting (Post-Dialysis) 156/82 mmHg Concurrent Access: falseAV Fistula Upper Arm (Right) Arterial BP Standing (Pre-Dialysis) 122/63 mmHg BP Standing (P ost-Dialysis) 148/79 mmHg Sitting Heart Rate Pre-Dialysis 86 BPM Sitting Heart Rate Post-Dialysis 70 BPM Standing Heart Rate Pre-Dialysis 90 BPM Standing Heart Rate Post-Dialysis 80 BPM Temperature Pre-Dialysis 98.2 degF Temperature Post -Dialysis 97.5 degF January 28, 2024 In-Center Hemodialysis Treatment 8865-39-09C30:52:26.000Z 0153-68-11Q29:53:30.000Z BP Sitting (Pre-Dialysis) 148/82 mmHg BP Sitting (Post-Dialysis) 151/80 mmHg Concurrent Access: falseAV Fistula Upper Arm (Right) Arterial BP Standing (Pre-Dialysis) 145/83 mmHg BP Standing (P ost-Dialysis) 155/77 mmHg Sitting Heart Rate Pre-Dialysis 73 BPM Sitting Heart Rate Post-Dialysis 69 BPM Standing Heart Rate Pre-Dialysis 82 BPM Standing Heart Rate Post-Dialysis 66 BPM Temperature Pre-Dialysis 98.6 degF Temperature Post -Dialysis 98.3 degF January 26, 2024 In-Center Hemodialysis Treatment 3625-31-45T31:01:51.000Z 2481-23-50A30:05:56.000Z BP Sitting (Pre-Dialysis) 156/81 mmHg BP Sitting (Post-Dialysis) 140/78 mmHg Concurrent Access: falseAV Fistula Upper Arm (Right) Arterial BP Standing (Pre-Dialysis) 158/80 mmHg BP Standing (P ost-Dialysis) 137/76 mmHg Sitting Heart Rate Pre-Dialysis 73 BPM Sitting Heart Rate Post-Dialysis 70 BPM Standing Heart Rate Pre-Dialysis 83 BPM Standing Heart Rate Post-Dialysis 80 BPM Temperature Pre-Dialysis 97.2 degF January 23, 2024 In-Center Hemodialysis Treatment 9849-77-74E18:05:34.000Z 6413-31-41Q82:07:39.000Z BP Sitting (Pre-Dialysis) 156/83 mmHg BP Sitting (Post-Dialysis) 145/79 mmHg Concurrent Access: falseAV Fistula Upper Arm (Right) Arterial BP Standing (Pre-Dialysis) 152/80 mmHg BP Standing (P ost-Dialysis) 132/72 mmHg Sitting Heart Rate Pre-Dialysis 89 BPM Sitting Heart Rate Post-Dialysis 71 BPM Standing Heart Rate Pre-Dialysis 95 BPM Standing Heart Rate Post-Dialysis 85 BPM Temperature Pre-Dialysis 98.9 degF Temperature Post -Dialysis 98.3 degF January 21, 2024 In-Center Hemodialysis Treatment 9145-90-85S22:33:30.000Z 4354-87-03W37:31:34.000Z BP Sitting (Pre-Dialysis) 148/79 mmHg BP Sitting (Post-Dialysis) 181/92 mmHg Concurrent Access: falseAV Fistula Upper Arm (Right) Arterial BP Standing (Pre-Dialysis) 132/78 mmHg BP Standing (P ost-Dialysis) 155/78 mmHg Sitting Heart Rate Pre-Dialysis 80 BPM Sitting Heart Rate Post-Dialysis 69 BPM Standing Heart Rate Pre-Dialysis 85 BPM Standing Heart Rate Post-Dialysis 81 BPM Temperature Pre-Dialysis 97.4 degF Temperature Post -Dialysis 97.9 degF January 19, 2024 In-Center Hemodialysis Treatment [id number]:46:30.000Z 5669-29-49J69:38:34.000Z BP Sitting (Pre-Dialysis) 139/72 mmHg BP Sitting (Post-Dialysis) 157/82 mmHg Concurrent Access: falseAV Fistula Upper Arm (Right) Arterial BP Standing (Pre-Dialysis) 152/82 mmHg BP Standing (P ost-Dialysis) 161/85 mmHg Sitting Heart Rate Pre-Dialysis 85 BPM Sitting Heart Rate Post-Dialysis 73 BPM Standing Heart Rate Pre-Dialysis 84 BPM Standing Heart Rate Post-Dialysis 83 BPM Temperature Pre-Dialysis 97.3 degF Temperature Post -Dialysis 98.3 degF January 16, 2024 In-Center Hemodialysis Treatment 4921-37-34Y87:49:27.000Z 0532-88-10B45:49:31.000Z BP Sitting (Pre-Dialysis) 148/85 mmHg BP Sitting (Post-Dialysis) 149/83 mmHg Concurrent Access: falseAV Fistula Upper Arm (Right) Arterial BP Standing (Pre-Dialysis) 159/87 mmHg BP Standing (P ost-Dialysis) 147/76 mmHg Sitting Heart Rate Pre-Dialysis 74 BPM Sitting Heart Rate Post-Dialysis 72 BPM Standing Heart Rate Pre-Dialysis 84 BPM Standing Heart Rate Post-Dialysis 84 BPM Temperature Pre-Dialysis 98 degF Temperature Post -Dialysis 98 degF January 14, 2024 In-Center Hemodialysis Treatment 9307-31-24W79:32:26.000Z 1195-46-62G77:30:30.000Z BP Sitting (Pre-Dialysis) 143/82 mmHg BP Sitting (Post-Dialysis) 162/83 mmHg Concurrent Access: falseAV Fistula Upper Arm (Right) Arterial BP Standing (Pre-Dialysis) 130/77 mmHg BP Standing (P ost-Dialysis) 144/80 mmHg Sitting Heart Rate Pre-Dialysis 87 BPM Sitting Heart Rate Post-Dialysis 87 BPM Standing Heart Rate Pre-Dialysis 93 BPM Standing Heart Rate Post-Dialysis 87 BPM Temperature Pre-Dialysis 98.4 degF Temperature Post -Dialysis 97.3 degF January 12, 2024 In-Center Hemodialysis Treatment 7711-91-84A34:51:23.000Z 1518-07-78I81:52:26.000Z BP Sitting (Pre-Dialysis) 149/82 mmHg BP Sitting (Post-Dialysis) 135/84 mmHg Concurrent Access: falseAV Fistula Upper Arm (Right) Arterial BP Standing (Pre-Dialysis) 150/78 mmHg BP Standing (P ost-Dialysis) 142/79 mmHg Sitting Heart Rate Pre-Dialysis 81 BPM Sitting Heart Rate Post-Dialysis 80 BPM Standing Heart Rate Pre-Dialysis 87 BPM Standing Heart Rate Post-Dialysis 85 BPM Temperature Pre-Dialysis 97.7 degF Temperature Post -Dialysis 98.2 degF January 09, 2024 In-Center Hemodialysis Treatment 6581-67-25I08:45:20.000Z 6877-10-40I49:44:24.000Z BP Sitting (Pre-Dialysis) 139/74 mmHg BP Sitting (Post-Dialysis) 133/84 mmHg Concurrent Access: falseAV Fistula Upper Arm (Right) Arterial BP Standing (Pre-Dialysis) 154/79 mmHg BP Standing (P ost-Dialysis) 134/69 mmHg Sitting Heart Rate Pre-Dialysis 85 BPM Sitting Heart Rate Post-Dialysis 80 BPM Standing Heart Rate Pre-Dialysis 85 BPM Standing Heart Rate Post-Dialysis 93 BPM Temperature Pre-Dialysis 98.1 degF Temperature Post -Dialysis 97.5 degF January 07, 2024 In-Center Hemodialysis Treatment [id number]:27:41.000Z 7690-33-48G35:29:46.000Z BP Sitting (Pre-Dialysis) 154/73 mmHg BP Sitting (Post-Dialysis) 143/74 mmHg Concurrent Access: falseAV Fistula Upper Arm (Right) Arterial BP Standing (Pre-Dialysis) 139/69 mmHg BP Standing (P ost-Dialysis) 132/77 mmHg Sitting Heart Rate Pre-Dialysis 90 BPM Sitting Heart Rate Post-Dialysis 75 BPM Standing Heart Rate Pre-Dialysis 95 BPM Standing Heart Rate Post-Dialysis 88 BPM Temperature Pre-Dialysis 97.5 degF Temperature Post -Dialysis 97.5 degF January 05, 2024 In-Center Hemodialysis Treatment 6172-29-05S08:55:52.000Z 1145-05-61X27:55:57.000Z BP Sitting (Pre-Dialysis) 135/78 mmHg BP Sitting (Post-Dialysis) 148/82 mmHg Concurrent Access: falseAV Fistula Upper Arm (Right) Arterial BP Standing (Pre-Dialysis) 142/72 mmHg BP Standing (P ost-Dialysis) 154/70 mmHg Sitting Heart Rate Pre-Dialysis 79 BPM Sitting Heart Rate Post-Dialysis 72 BPM Standing Heart Rate Pre-Dialysis 82 BPM Standing Heart Rate Post-Dialysis 85 BPM Temperature Pre-Dialysis 97.5 degF Temperature Post -Dialysis 98.6 degF January 02, 2024 In-Center Hemodialysis Treatment 5072-13-88H06:46:00.000Z 9936-68-22Y15:44:53.000Z BP Sitting (Pre-Dialysis) 146/77 mmHg BP Sitting (Post-Dialysis) 123/55 mmHg Concurrent Access: falseAV Fistula Upper Arm (Right) Arterial BP Standing (Pre-Dialysis) 131/71 mmHg BP Standing (P ost-Dialysis) 109/76 mmHg Sitting Heart Rate Pre-Dialysis 82 BPM Sitting Heart Rate Post-Dialysis 81 BPM Standing Heart Rate Pre-Dialysis 86 BPM Standing Heart Rate Post-Dialysis 90 BPM Temperature Pre-Dialysis 97.8 degF Temperature Post -Dialysis 97.6 degF December 31, 2023 In-Center Hemodialysis Treatment 7577-47-02L17:49:00.000Z 6461-99-70G80:51:32.000Z BP Sitting (Pre-Dialysis) 155/79 mmHg BP Sitting (Post-Dialysis) 152/71 mmHg Concurrent Access: falseAV Fistula Upper Arm (Right) Arterial BP Standing (Pre-Dialysis) 165/85 mmHg BP Standing (P ost-Dialysis) 155/85 mmHg Sitting Heart Rate Pre-Dialysis 81 BPM Sitting Heart Rate Post-Dialysis 65 BPM Standing Heart Rate Pre-Dialysis 77 BPM Standing Heart Rate Post-Dialysis 80 BPM Temperature Pre-Dialysis 97.6 degF Temperature Post -Dialysis 98.5 degF December 29, 2023 In-Center Hemodialysis Treatment 5293-68-01C55:01:00.000Z 6676-22-21D47:02:23.000Z BP Sitting (Pre-Dialysis) 139/76 mmHg BP Sitting (Post-Dialysis) 146/77 mmHg Concurrent Access: falseAV Fistula Upper Arm (Right) Arterial BP Standing (Pre-Dialysis) 129/61 mmHg BP Standing (P ost-Dialysis) 165/77 mmHg Sitting Heart Rate Pre-Dialysis 80 BPM Sitting Heart Rate Post-Dialysis 76 BPM Standing Heart Rate Pre-Dialysis 86 BPM Standing Heart Rate Post-Dialysis 98 BPM Temperature Pre-Dialysis 98.2 degF Temperature Post -Dialysis 98.2 degF December 24, 2023 In-Center Hemodialysis Treatment 9221-04-56K15:49:18.000Z 8713-61-89U98:46:21.000Z BP Sitting (Pre-Dialysis) 137/71 mmHg BP Sitting (Post-Dialysis) 166/92 mmHg Concurrent Access: falseAV Fistula Upper Arm (Right) Arterial BP Standing (Pre-Dialysis) 139/74 mmHg BP Standing (P ost-Dialysis) 156/82 mmHg Sitting Heart Rate Pre-Dialysis 85 BPM Sitting Heart Rate Post-Dialysis 75 BPM Standing Heart Rate Pre-Dialysis 88 BPM Standing Heart Rate Post-Dialysis 71 BPM Temperature Pre-Dialysis 97.8 degF Temperature Post -Dialysis 97.5 degF December 22, 2023 In-Center Hemodialysis Treatment [id number]:43:34.000Z [id number]:38:37.000Z BP Sitting (Pre-Dialysis) 154/76 mmHg BP Sitting (Post-Dialysis) 137/60 mmHg Concurrent Access: falseAV Fistula Upper Arm (Right) Arterial BP Standing (Pre-Dialysis) 156/82 mmHg BP Standing (P ost-Dialysis) 134/71 mmHg Sitting Heart Rate Pre-Dialysis 84 BPM Sitting Heart Rate Post-Dialysis 79 BPM Standing Heart Rate Pre-Dialysis 82 BPM Standing Heart Rate Post-Dialysis 96 BPM Temperature Pre-Dialysis 97.4 degF Temperature Post -Dialysis 97.3 degF December 19, 2023 In-Center Hemodialysis Treatment [id number]:22:00.000Z [id number]:26:42.000Z BP Sitting (Pre-Dialysis) 147/87 mmHg BP Sitting (Post-Dialysis) 159/79 mmHg Concurrent Access: falseAV Fistula Upper Arm (Right) Arterial BP Standing (Pre-Dialysis) 125/69 mmHg BP Standing (P ost-Dialysis) 148/79 mmHg Sitting Heart Rate Pre-Dialysis 87 BPM Sitting Heart Rate Post-Dialysis 70 BPM Standing Heart Rate Pre-Dialysis 92 BPM Standing Heart Rate Post-Dialysis 83 BPM Temperature Pre-Dialysis 97.4 degF Temperature Post -Dialysis 97.9 degF December 17, 2023 In-Center Hemodialysis Treatment [id number]:38:40.000Z [id number]:41:44.000Z BP Sitting (Pre-Dialysis) 150/69 mmHg BP Sitting (Post-Dialysis) 161/90 mmHg Concurrent Access: falseAV Fistula Upper Arm (Right) Arterial Sitting Heart Rate Pre-Dialysis 81 BPM BP Standing (Post-Dialysis) 155/86 mmHg Temperature Pre-Dialysis 98.1 degF Sitting Heart Ra te Post-Dialysis 76 BPM Standing Heart Rate Post-Sammi lysis 84 BPM Temperature Post-Dialysis 98 .3 degF December 15, 2023 In-Center Hemodialysis Treatment [id number]:09:05.000Z [id number]:02:09.000Z BP Sitting (Pre-Dialysis) 172/91 mmHg BP Sitting (Post-Dialysis) 174/93 mmHg Concurrent Access: falseAV Fistula Upper Arm (Right) Arterial BP Standing (Pre-Dialysis) 160/82 mmHg BP Standing (P ost-Dialysis) 158/89 mmHg Sitting Heart Rate Pre-Dialysis 88 BPM Sitting Heart Rate Post-Dialysis 69 BPM Standing Heart Rate Pre-Dialysis 94 BPM Standing Heart Rate Post-Dialysis 86 BPM Temperature Pre-Dialysis 98.6 degF Temperature Post -Dialysis 97.3 degF December 12, 2023 In-Center Hemodialysis Treatment [id number]:03:00.000Z [id number]:01:42.000Z BP Sitting (Pre-Dialysis) 158/84 mmHg BP Sitting (Post-Dialysis) 156/85 mmHg Concurrent Access: falseAV Fistula Upper Arm (Right) Arterial BP Standing (Pre-Dialysis) 153/83 mmHg BP Standing (P ost-Dialysis) 134/81 mmHg Sitting Heart Rate Pre-Dialysis 87 BPM Sitting Heart Rate Post-Dialysis 73 BPM Standing Heart Rate Pre-Dialysis 93 BPM Standing Heart Rate Post-Dialysis 87 BPM Temperature Pre-Dialysis 98.6 degF Temperature Post -Dialysis 97.6 degF December 10, 2023 In-Center Hemodialysis Treatment [id number]:13:26.000Z [id number]:12:31.000Z BP Sitting (Pre-Dialysis) 164/88 mmHg BP Sitting (Post-Dialysis) 176/92 mmHg Concurrent Access: falseAV Fistula Upper Arm (Right) Arterial BP Standing (Pre-Dialysis) 152/83 mmHg BP Standing (P ost-Dialysis) 156/94 mmHg Sitting Heart Rate Pre-Dialysis 77 BPM Sitting Heart Rate Post-Dialysis 70 BPM Standing Heart Rate Pre-Dialysis 83 BPM Standing Heart Rate Post-Dialysis 86 BPM Temperature Pre-Dialysis 97.4 degF Temperature Post -Dialysis 98.2 degF December 08, 2023 In-Center Hemodialysis Treatment [id number]:54:00.000Z 2459-44-31G98:56:41.000Z BP Sitting (Pre-Dialysis) 149/80 mmHg BP Sitting (Post-Dialysis) 143/79 mmHg Concurrent Access: falseAV Fistula Upper Arm (Right) Arterial BP Standing (Pre-Dialysis) 152/75 mmHg BP Standing (P ost-Dialysis) 130/77 mmHg Sitting Heart Rate Pre-Dialysis 70 BPM Sitting Heart Rate Post-Dialysis 72 BPM Standing Heart Rate Pre-Dialysis 82 BPM Standing Heart Rate Post-Dialysis 82 BPM Temperature Pre-Dialysis 98 degF Temperature Post -Dialysis 98 degF December 05, 2023 In-Center Hemodialysis Treatment [id number]:59:35.000Z [id number]:59:38.000Z BP Sitting (Pre-Dialysis) 140/76 mmHg BP Sitting (Post-Dialysis) 143/75 mmHg Concurrent Access: falseAV Fistula Upper Arm (Right) Arterial Sitting Heart Rate Pre-Dialysis 95 BPM BP Standing (Post-Dialysis) 138/76 mmHg Temperature Pre-Dialysis 97.2 degF Sitting Heart Ra te Post-Dialysis 76 BPM Standing Heart Rate Post-Sammi lysis 93 BPM Temperature Post-Dialysis 98 degF December 03, 2023 In-Center Hemodialysis Treatment 4066-60-30U73:17:09.000Z [id number]:17:13.000Z BP Sitting (Pre-Dialysis) 150/83 mmHg BP Sitting (Post-Dialysis) 162/67 mmHg Concurrent Access: falseAV Fistula Upper Arm (Right) Arterial BP Standing (Pre-Dialysis) 153/79 mmHg BP Standing (P ost-Dialysis) 139/83 mmHg Sitting Heart Rate Pre-Dialysis 86 BPM Sitting Heart Rate Post-Dialysis 74 BPM Standing Heart Rate Pre-Dialysis 85 BPM Standing Heart Rate Post-Dialysis 89 BPM Temperature Pre-Dialysis 98.6 degF Temperature Post -Dialysis 97.8 degF December 01, 2023 In-Center Hemodialysis Treatment [id number]:58:49.000Z [id number]:28:53.000Z BP Sitting (Pre-Dialysis) 162/84 mmHg BP Sitting (Post-Dialysis) 142/78 mmHg Concurrent Access: falseAV Fistula Upper Arm (Right) Arterial BP Standing (Pre-Dialysis) 157/77 mmHg BP Standing (P ost-Dialysis) 137/84 mmHg Sitting Heart Rate Pre-Dialysis 81 BPM Sitting Heart Rate Post-Dialysis 87 BPM Standing Heart Rate Pre-Dialysis 90 BPM Standing Heart Rate Post-Dialysis 92 BPM Temperature Pre-Dialysis 98.4 degF Temperature Post -Dialysis 98.1 degF November 28, 2023 In-Center Hemodialysis Treatment [id number]:50:32.000Z [id number]:51:36.000Z BP Sitting (Pre-Dialysis) 149/85 mmHg BP Sitting (Post-Dialysis) 152/89 mmHg Concurrent Access: falseAV Fistula Upper Arm (Right) Arterial BP Standing (Pre-Dialysis) 149/85 mmHg BP Standing (P ost-Dialysis) 155/81 mmHg Sitting Heart Rate Pre-Dialysis 89 BPM Sitting Heart Rate Post-Dialysis 83 BPM Standing Heart Rate Pre-Dialysis 89 BPM Standing Heart Rate Post-Dialysis 100 BPM Temperature Pre-Dialysis 98.1 degF Temperature Post -Dialysis 98 degF November 26, 2023 In-Center Hemodialysis Treatment [id number]:50:01.000Z [id number]:32:04.000Z BP Sitting (Pre-Dialysis) 150/84 mmHg BP Sitting (Post-Dialysis) 147/82 mmHg Concurrent Access: falseAV Fistula Upper Arm (Right) Arterial BP Standing (Pre-Dialysis) 160/85 mmHg BP Standing (P ost-Dialysis) 115/77 mmHg Sitting Heart Rate Pre-Dialysis 75 BPM Sitting Heart Rate Post-Dialysis 87 BPM Standing Heart Rate Pre-Dialysis 89 BPM Standing Heart Rate Post-Dialysis 98 BPM Temperature Pre-Dialysis 98.4 degF Temperature Post -Dialysis 97.4 degF November 24, 2023 In-Center Hemodialysis Treatment [id number]:50:42.000Z 5380-57-03L75:49:46.000Z BP Sitting (Pre-Dialysis) 150/79 mmHg BP Sitting (Post-Dialysis) 154/75 mmHg Concurrent Access: falseAV Fistula Upper Arm (Right) Arterial BP Standing (Pre-Dialysis) 136/75 mmHg BP Standing (P ost-Dialysis) 148/79 mmHg Sitting Heart Rate Pre-Dialysis 81 BPM Sitting Heart Rate Post-Dialysis 79 BPM Standing Heart Rate Pre-Dialysis 85 BPM Standing Heart Rate Post-Dialysis 81 BPM Temperature Pre-Dialysis 97.4 degF Temperature Post -Dialysis 97.5 degF November 21, 2023 In-Center Hemodialysis Treatment [id number]:16:30.000Z [id number]:14:35.000Z BP Sitting (Pre-Dialysis) 135/75 mmHg BP Sitting (Post-Dialysis) 148/86 mmHg Concurrent Access: falseAV Fistula Upper Arm (Right) Arterial BP Standing (Pre-Dialysis) 130/70 mmHg BP Standing (P ost-Dialysis) 130/71 mmHg Sitting Heart Rate Pre-Dialysis 89 BPM Sitting Heart Rate Post-Dialysis 86 BPM Standing Heart Rate Pre-Dialysis 87 BPM Standing Heart Rate Post-Dialysis 83 BPM Temperature Pre-Dialysis 97.3 degF Temperature Post -Dialysis 97.5 degF November 19, 2023 In-Center Hemodialysis Treatment [id number]:05:28.000Z [id number]:07:32.000Z BP Sitting (Pre-Dialysis) 132/78 mmHg BP Sitting (Post-Dialysis) 127/72 mmHg Concurrent Access: falseAV Fistula Upper Arm (Right) Arterial BP Standing (Pre-Dialysis) 128/58 mmHg BP Standing (P ost-Dialysis) 129/74 mmHg Sitting Heart Rate Pre-Dialysis 83 BPM Sitting Heart Rate Post-Dialysis 79 BPM Standing Heart Rate Pre-Dialysis 92 BPM Standing Heart Rate Post-Dialysis 83 BPM Temperature Pre-Dialysis 98.2 degF Temperature Post -Dialysis 97.6 degF November 10, 2023 In-Center Hemodialysis Treatment [id number]:54:32.000Z [id number]:27:36.000Z BP Sitting (Pre-Dialysis) 139/60 mmHg BP Sitting (Post-Dialysis) 117/69 mmHg Concurrent Access: falseAV Fistula Upper Arm (Right) Arterial BP Standing (Pre-Dialysis) 152/90 mmHg BP Standing (P ost-Dialysis) 113/60 mmHg Sitting Heart Rate Pre-Dialysis 97 BPM Sitting Heart Rate Post-Dialysis 71 BPM Standing Heart Rate Pre-Dialysis 84 BPM Standing Heart Rate Post-Dialysis 82 BPM Temperature Pre-Dialysis 98.3 degF Temperature Post -Dialysis 98.5 degF November 07, 2023 In-Center Hemodialysis Treatment [id number]:09:38.000Z 7973-48-32I52:07:42.000Z BP Sitting (Pre-Dialysis) 158/89 mmHg BP Sitting (Post-Dialysis) 154/85 mmHg Concurrent Access: falseAV Fistula Upper Arm (Right) Arterial BP Standing (Pre-Dialysis) 147/79 mmHg BP Standing (P ost-Dialysis) 142/64 mmHg Sitting Heart Rate Pre-Dialysis 81 BPM Sitting Heart Rate Post-Dialysis 62 BPM Standing Heart Rate Pre-Dialysis 88 BPM Standing Heart Rate Post-Dialysis 67 BPM Temperature Pre-Dialysis 98 degF Temperature Post -Dialysis 97.8 degF November 05, 2023 In-Center Hemodialysis Treatment [id number]:35:00.000Z 3929-10-60Y01:31:52.000Z BP Sitting (Pre-Dialysis) 145/79 mmHg BP Sitting (Post-Dialysis) 175/92 mmHg Concurrent Access: falseAV Fistula Upper Arm (Right) Arterial BP Standing (Pre-Dialysis) 158/79 mmHg BP Standing (P ost-Dialysis) 159/89 mmHg Sitting Heart Rate Pre-Dialysis 88 BPM Sitting Heart Rate Post-Dialysis 80 BPM Standing Heart Rate Pre-Dialysis 84 BPM Standing Heart Rate Post-Dialysis 82 BPM Temperature Pre-Dialysis 97.8 degF Temperature Post -Dialysis 97.6 degF November 03, 2023 In-Center Hemodialysis Treatment [id number]:26:52.000Z [id number]:11:56.000Z BP Sitting (Pre-Dialysis) 148/78 mmHg BP Sitting (Post-Dialysis) 165/90 mmHg Concurrent Access: falseAV Fistula Upper Arm (Right) Arterial BP Standing (Pre-Dialysis) 139/77 mmHg BP Standing (P ost-Dialysis) 144/83 mmHg Sitting Heart Rate Pre-Dialysis 88 BPM Sitting Heart Rate Post-Dialysis 82 BPM Standing Heart Rate Pre-Dialysis 94 BPM Standing Heart Rate Post-Dialysis 88 BPM Temperature Pre-Dialysis 98.1 degF Temperature Post -Dialysis 98.1 degF October 31, 2023 In-Center Hemodialysis Treatment [id number]:41:36.000Z [id number]:26:00.000Z BP Sitting (Pre-Dialysis) 158/85 mmHg BP Sitting (Post-Dialysis) 173/94 mmHg Concurrent Access: falseAV Fistula Upper Arm (Right) Arterial BP Standing (Pre-Dialysis) 159/83 mmHg BP Standing (P ost-Dialysis) 146/83 mmHg Sitting Heart Rate Pre-Dialysis 96 BPM Sitting Heart Rate Post-Dialysis 75 BPM Standing Heart Rate Pre-Dialysis 90 BPM Standing Heart Rate Post-Dialysis 89 BPM Temperature Pre-Dialysis 97.3 degF Temperature Post -Dialysis 98 degF October 29, 2023 In-Center Hemodialysis Treatment [id number]:39:09.000Z [id number]:39:13.000Z BP Sitting (Pre-Dialysis) 169/82 mmHg BP Sitting (Post-Dialysis) 166/85 mmHg Concurrent Access: falseAV Fistula Upper Arm (Right) Arterial BP Standing (Pre-Dialysis) 170/79 mmHg BP Standing (P ost-Dialysis) 161/91 mmHg Sitting Heart Rate Pre-Dialysis 90 BPM Sitting Heart Rate Post-Dialysis 75 BPM Standing Heart Rate Pre-Dialysis 83 BPM Standing Heart Rate Post-Dialysis 85 BPM Temperature Pre-Dialysis 98 degF Temperature Post -Dialysis 97.6 degF October 27, 2023 In-Center Hemodialysis Treatment [id number]:53:00.000Z [id number]:38:13.000Z BP Sitting (Pre-Dialysis) 150/81 mmHg BP Sitting (Post-Dialysis) 155/74 mmHg Concurrent Access: falseAV Fistula Upper Arm (Right) Arterial BP Standing (Pre-Dialysis) 145/82 mmHg BP Standing (P ost-Dialysis) 168/90 mmHg Sitting Heart Rate Pre-Dialysis 88 BPM Sitting Heart Rate Post-Dialysis 71 BPM Standing Heart Rate Pre-Dialysis 83 BPM Standing Heart Rate Post-Dialysis 96 BPM Temperature Pre-Dialysis 97.5 degF Temperature Post -Dialysis 97.9 degF October 24, 2023 In-Center Hemodialysis Treatment [id number]:36:53.000Z [id number]:25:58.000Z BP Sitting (Pre-Dialysis) 139/76 mmHg BP Sitting (Post-Dialysis) 158/87 mmHg Concurrent Access: falseAV Fistula Upper Arm (Right) Arterial BP Standing (Pre-Dialysis) 133/68 mmHg BP Standing (P ost-Dialysis) 138/77 mmHg Sitting Heart Rate Pre-Dialysis 86 BPM Sitting Heart Rate Post-Dialysis 89 BPM Standing Heart Rate Pre-Dialysis 88 BPM Standing Heart Rate Post-Dialysis 87 BPM Temperature Pre-Dialysis 97.5 degF Temperature Post -Dialysis 97.4 degF October 22, 2023 In-Center Hemodialysis Treatment [id number]:05:15.000Z 0831-65-86L62:01:20.000Z BP Sitting (Pre-Dialysis) 131/68 mmHg BP Sitting (Post-Dialysis) 139/67 mmHg Concurrent Access: falseAV Fistula Upper Arm (Right) Arterial BP Standing (Pre-Dialysis) 123/64 mmHg BP Standing (P ost-Dialysis) 149/80 mmHg Sitting Heart Rate Pre-Dialysis 88 BPM Sitting Heart Rate Post-Dialysis 73 BPM Standing Heart Rate Pre-Dialysis 89 BPM Standing Heart Rate Post-Dialysis 64 BPM Temperature Pre-Dialysis 98.2 degF Temperature Post -Dialysis 97.5 degF October 20, 2023 In-Center Hemodialysis Treatment 6740-23-63W52:34:05.000Z 6087-27-35R28:48:08.000Z BP Sitting (Pre-Dialysis) 144/77 mmHg BP Sitting (Post-Dialysis) 150/75 mmHg Concurrent Access: falseAV Fistula Upper Arm (Right) Arterial BP Standing (Pre-Dialysis) 144/75 mmHg BP Standing (P ost-Dialysis) 137/77 mmHg Sitting Heart Rate Pre-Dialysis 71 BPM Sitting Heart Rate Post-Dialysis 73 BPM Standing Heart Rate Pre-Dialysis 64 BPM Standing Heart Rate Post-Dialysis 86 BPM Temperature Pre-Dialysis 98.2 degF Temperature Post -Dialysis 98.4 degF October 17, 2023 In-Center Hemodialysis Treatment 6625-63-06G85:10:00.000Z 2101-11-54B98:20:04.000Z BP Sitting (Pre-Dialysis) 140/76 mmHg BP Sitting (Post-Dialysis) 153/82 mmHg Concurrent Access: falseAV Fistula Upper Arm (Right) Arterial BP Standing (Pre-Dialysis) 141/70 mmHg BP Standing (P ost-Dialysis) 129/57 mmHg Sitting Heart Rate Pre-Dialysis 83 BPM Sitting Heart Rate Post-Dialysis 77 BPM Standing Heart Rate Pre-Dialysis 85 BPM Standing Heart Rate Post-Dialysis 94 BPM Temperature Pre-Dialysis 97.3 degF Temperature Post -Dialysis 98 degF October 15, 2023 In-Center Hemodialysis Treatment [id number]:40:35.000Z 7076-15-20I00:41:39.000Z BP Sitting (Pre-Dialysis) 157/80 mmHg BP Sitting (Post-Dialysis) 154/103 mmHg Concurrent Access: falseAV Fistula Upper Arm (Right) Arterial BP Standing (Pre-Dialysis) 150/80 mmHg BP Standing (P ost-Dialysis) 157/79 mmHg Sitting Heart Rate Pre-Dialysis 89 BPM Sitting Heart Rate Post-Dialysis 74 BPM Standing Heart Rate Pre-Dialysis 90 BPM Standing Heart Rate Post-Dialysis 88 BPM Temperature Pre-Dialysis 98.7 degF Temperature Post -Dialysis 97.2 degF October 13, 2023 In-Center Hemodialysis Treatment [id number]:16:00.000Z [id number]:17:33.000Z BP Sitting (Pre-Dialysis) 160/83 mmHg BP Sitting (Post-Dialysis) 179/88 mmHg Concurrent Access: falseAV Fistula Upper Arm (Right) Arterial BP Standing (Pre-Dialysis) 159/84 mmHg BP Standing (P ost-Dialysis) 165/75 mmHg Sitting Heart Rate Pre-Dialysis 78 BPM Sitting Heart Rate Post-Dialysis 73 BPM Standing Heart Rate Pre-Dialysis 81 BPM Standing Heart Rate Post-Dialysis 92 BPM Temperature Pre-Dialysis 98.3 degF Temperature Post -Dialysis 98.3 degF October 10, 2023 In-Center Hemodialysis Treatment [id number]:54:52.000Z 8614-88-97T55:54:52.000Z BP Sitting (Pre-Dialysis) 143/78 mmHg BP Sitting (Post-Dialysis) 151/86 mmHg Concurrent Access: falseAV Fistula Upper Arm (Right) Arterial BP Standing (Pre-Dialysis) 144/76 mmHg BP Standing (P ost-Dialysis) 142/79 mmHg Sitting Heart Rate Pre-Dialysis 81 BPM Sitting Heart Rate Post-Dialysis 86 BPM Standing Heart Rate Pre-Dialysis 82 BPM Standing Heart Rate Post-Dialysis 95 BPM Temperature Pre-Dialysis 98.1 degF Temperature Post -Dialysis 97.4 degF October 08, 2023 In-Center Hemodialysis Treatment [id number]:41:56.000Z [id number]:39:59.000Z BP Sitting (Pre-Dialysis) 152/80 mmHg BP Sitting (Post-Dialysis) 154/82 mmHg Concurrent Access: falseAV Fistula Upper Arm (Right) Arterial BP Standing (Pre-Dialysis) 145/75 mmHg BP Standing (P ost-Dialysis) 145/65 mmHg Sitting Heart Rate Pre-Dialysis 79 BPM Sitting Heart Rate Post-Dialysis 85 BPM Standing Heart Rate Pre-Dialysis 86 BPM Standing Heart Rate Post-Dialysis 72 BPM Temperature Pre-Dialysis 98 degF Temperature Post -Dialysis 97.5 degF October 06, 2023 In-Center Hemodialysis Treatment 7946-15-12V29:53:00.000Z 7626-58-63V04:09:42.000Z BP Sitting (Pre-Dialysis) 130/71 mmHg BP Sitting (Post-Dialysis) 147/87 mmHg Concurrent Access: falseAV Fistula Upper Arm (Right) Arterial BP Standing (Pre-Dialysis) 134/70 mmHg BP Standing (P ost-Dialysis) 132/69 mmHg Sitting Heart Rate Pre-Dialysis 93 BPM Sitting Heart Rate Post-Dialysis 77 BPM Standing Heart Rate Pre-Dialysis 90 BPM Standing Heart Rate Post-Dialysis 96 BPM Temperature Pre-Dialysis 97.8 degF October 03, 2023 In-Center Hemodialysis Treatment [id number]:44:27.000Z 1937-24-98S57:44:28.000Z BP Sitting (Pre-Dialysis) 135/69 mmHg BP Sitting (Post-Dialysis) 156/81 mmHg Concurrent Access: falseAV Fistula Upper Arm (Right) Arterial BP Standing (Pre-Dialysis) 130/69 mmHg BP Standing (P ost-Dialysis) 119/59 mmHg Sitting Heart Rate Pre-Dialysis 96 BPM Sitting Heart Rate Post-Dialysis 89 BPM Standing Heart Rate Pre-Dialysis 93 BPM Standing Heart Rate Post-Dialysis 98 BPM Temperature Pre-Dialysis 97.4 degF Temperature Post -Dialysis 98.8 degF October 01, 2023 In-Center Hemodialysis Treatment 1463-07-60I16:59:30.000Z 9572-44-99R64:00:31.000Z BP Sitting (Pre-Dialysis) 123/63 mmHg BP Sitting (Post-Dialysis) 159/78 mmHg Concurrent Access: falseAV Fistula Upper Arm (Right) Arterial BP Standing (Pre-Dialysis) 123/63 mmHg BP Standing (P ost-Dialysis) 156/61 mmHg Sitting Heart Rate Pre-Dialysis 98 BPM Sitting Heart Rate Post-Dialysis 102 BPM Standing Heart Rate Pre-Dialysis 98 BPM Standing Heart Rate Post-Dialysis 113 BPM Temperature Pre-Dialysis 98 degF Temperature Post -Dialysis 97.5 degF September 29, 2023 In-Center Hemodialysis Treatment 0445-72-00Y82:15:10.000Z 5134-17-67Z06:15:11.000Z BP Sitting (Pre-Dialysis) 154/76 mmHg BP Sitting (Post-Dialysis) 164/80 mmHg Concurrent Access: falseAV Fistula Upper Arm (Right) Arterial BP Standing (Pre-Dialysis) 156/79 mmHg BP Standing (P ost-Dialysis) 138/73 mmHg Sitting Heart Rate Pre-Dialysis 100 BPM Sitting Heart Rate Post-Dialysis 85 BPM Standing Heart Rate Pre-Dialysis 97 BPM Standing Heart Rate Post-Dialysis 97 BPM Temperature Pre-Dialysis 97.6 degF Temperature Post -Dialysis 97.5 degF September 26, 2023 In-Center Hemodialysis Treatment [id number]:58:33.000Z [id number]:44:33.000Z BP Sitting (Pre-Dialysis) 154/80 mmHg BP Sitting (Post-Dialysis) 170/91 mmHg Concurrent Access: falseAV Fistula Upper Arm (Right) Arterial Sitting Heart Rate Pre-Dialysis 99 BPM BP Standing (Post-Dialysis) 159/79 mmHg Temperature Pre-Dialysis 96.1 degF Sitting Heart Ra te Post-Dialysis 110 BPM Standing Heart Rate Post-Sammi lysis 110 BPM Temperature Post-Dialysis 97 .5 degF September 24, 2023 In-Center Hemodialysis Treatment 0401-08-13I75:35:00.000Z 5198-79-17J48:29:08.000Z BP Sitting (Pre-Dialysis) 156/83 mmHg BP Sitting (Post-Dialysis) 152/80 mmHg Concurrent Access: falseAV Fistula Upper Arm (Right) Arterial BP Standing (Pre-Dialysis) 159/83 mmHg BP Standing (P ost-Dialysis) 141/70 mmHg Sitting Heart Rate Pre-Dialysis 95 BPM Sitting Heart Rate Post-Dialysis 95 BPM Standing Heart Rate Pre-Dialysis 95 BPM Standing Heart Rate Post-Dialysis 102 BPM Temperature Pre-Dialysis 98.4 degF Temperature Post -Dialysis 97.6 degF September 22, 2023 In-Center Hemodialysis Treatment 0524-84-21Z22:12:00.000Z 5093-51-84J25:58:12.000Z BP Sitting (Pre-Dialysis) 162/82 mmHg BP Sitting (Post-Dialysis) 136/63 mmHg Concurrent Access: falseAV Fistula Upper Arm (Right) Arterial BP Standing (Pre-Dialysis) 174/88 mmHg BP Standing (P ost-Dialysis) 138/63 mmHg Sitting Heart Rate Pre-Dialysis 96 BPM Sitting Heart Rate Post-Dialysis 96 BPM Standing Heart Rate Pre-Dialysis 92 BPM Standing Heart Rate Post-Dialysis 102 BPM Temperature Pre-Dialysis 98.6 degF Temperature Post -Dialysis 97.4 degF September 19, 2023 In-Center Hemodialysis Treatment [id number]:33:12.000Z 6446-99-31C96:48:12.000Z BP Sitting (Pre-Dialysis) 136/69 mmHg BP Sitting (Post-Dialysis) 143/73 mmHg Concurrent Access: falseAV Fistula Upper Arm (Right) Arterial BP Standing (Pre-Dialysis) 144/71 mmHg BP Standing (P ost-Dialysis) 117/48 mmHg Sitting Heart Rate Pre-Dialysis 102 BPM Sitting Heart Rate Post-Dialysis 70 BPM Standing Heart Rate Pre-Dialysis 98 BPM Standing Heart Rate Post-Dialysis 71 BPM Temperature Pre-Dialysis 97.5 degF Temperature Post -Dialysis 98.1 degF September 12, 2023 In-Center Hemodialysis Treatment [id number]:39:41.000Z 8511-54-07A57:23:41.000Z BP Sitting (Pre-Dialysis) 156/64 mmHg BP Sitting (Post-Dialysis) 116/65 mmHg Concurrent Access: falseAV Fistula Upper Arm (Right) Arterial BP Standing (Pre-Dialysis) 157/79 mmHg BP Standing (P ost-Dialysis) 120/66 mmHg Sitting Heart Rate Pre-Dialysis 74 BPM Sitting Heart Rate Post-Dialysis 78 BPM Standing Heart Rate Pre-Dialysis 88 BPM Standing Heart Rate Post-Dialysis 94 BPM Temperature Pre-Dialysis 97.8 degF Temperature Post -Dialysis 98 degF September 10, 2023 In-Center Hemodialysis Treatment [id number]:32:00.000Z 4621-53-11X22:26:41.000Z BP Sitting (Pre-Dialysis) 161/83 mmHg BP Sitting (Post-Dialysis) 166/84 mmHg Concurrent Access: falseAV Fistula Upper Arm (Right) Arterial BP Standing (Pre-Dialysis) 155/72 mmHg BP Standing (P ost-Dialysis) 152/81 mmHg Sitting Heart Rate Pre-Dialysis 81 BPM Sitting Heart Rate Post-Dialysis 67 BPM Standing Heart Rate Pre-Dialysis 84 BPM Standing Heart Rate Post-Dialysis 90 BPM Temperature Pre-Dialysis 97.6 degF Temperature Post -Dialysis 97.3 degF September 08, 2023 In-Center Hemodialysis Treatment [id number]:34:41.000Z 6345-65-29Q80:30:41.000Z BP Sitting (Pre-Dialysis) 129/72 mmHg BP Sitting (Post-Dialysis) 117/68 mmHg Concurrent Access: falseAV Fistula Upper Arm (Right) Arterial BP Standing (Pre-Dialysis) 129/71 mmHg BP Standing (P ost-Dialysis) 124/57 mmHg Sitting Heart Rate Pre-Dialysis 86 BPM Sitting Heart Rate Post-Dialysis 78 BPM Standing Heart Rate Pre-Dialysis 88 BPM Standing Heart Rate Post-Dialysis 87 BPM Temperature Pre-Dialysis 97.1 degF Temperature Post -Dialysis 98 degF September 05, 2023 In-Center Hemodialysis Treatment 1674-52-30N10:42:00.000Z 8549-87-09T66:37:21.000Z BP Sitting (Pre-Dialysis) 140/70 mmHg BP Sitting (Post-Dialysis) 134/72 mmHg Concurrent Access: falseAV Fistula Upper Arm (Right) Arterial BP Standing (Pre-Dialysis) 136/63 mmHg BP Standing (P ost-Dialysis) 119/60 mmHg Sitting Heart Rate Pre-Dialysis 82 BPM Sitting Heart Rate Post-Dialysis 83 BPM Standing Heart Rate Pre-Dialysis 92 BPM Standing Heart Rate Post-Dialysis 98 BPM Temperature Pre-Dialysis 98 degF Temperature Post -Dialysis 97.5 degF September 03, 2023 In-Center Hemodialysis Treatment 5813-08-33D19:50:00.000Z [id number]:51:37.000Z BP Sitting (Pre-Dialysis) 155/74 mmHg BP Sitting (Post-Dialysis) 157/81 mmHg Concurrent Access: falseAV Fistula Upper Arm (Right) Arterial BP Standing (Pre-Dialysis) 153/83 mmHg BP Standing (P ost-Dialysis) 159/83 mmHg Sitting Heart Rate Pre-Dialysis 90 BPM Sitting Heart Rate Post-Dialysis 72 BPM Standing Heart Rate Pre-Dialysis 90 BPM Standing Heart Rate Post-Dialysis 81 BPM Temperature Pre-Dialysis 98 degF Temperature Post -Dialysis 97.5 degF September 01, 2023 In-Center Hemodialysis Treatment [id number]:13:00.000Z 0510-69-26E68:17:21.000Z BP Sitting (Pre-Dialysis) 133/70 mmHg BP Sitting (Post-Dialysis) 146/74 mmHg Concurrent Access: falseAV Fistula Upper Arm (Right) Arterial BP Standing (Pre-Dialysis) 131/72 mmHg BP Standing (P ost-Dialysis) 142/66 mmHg Sitting Heart Rate Pre-Dialysis 90 BPM Sitting Heart Rate Post-Dialysis 85 BPM Standing Heart Rate Pre-Dialysis 85 BPM Standing Heart Rate Post-Dialysis 103 BPM Temperature Pre-Dialysis 98 degF Temperature Post -Dialysis 97.6 degF August 29, 2023 In-Center Hemodialysis Treatment [id number]:45:17.000Z [id number]:33:18.000Z BP Sitting (Pre-Dialysis) 141/78 mmHg BP Sitting (Post-Dialysis) 53/80 mmHg Concurrent Access: falseAV Fistula Upper Arm (Right) Arterial BP Standing (Pre-Dialysis) 140/74 mmHg BP Standing (P ost-Dialysis) 138/78 mmHg Sitting Heart Rate Pre-Dialysis 94 BPM Sitting Heart Rate Post-Dialysis 79 BPM Standing Heart Rate Pre-Dialysis 96 BPM Standing Heart Rate Post-Dialysis 92 BPM Temperature Pre-Dialysis 98.2 degF Temperature Post -Dialysis 97.6 degF August 27, 2023 In-Center Hemodialysis Treatment [id number]:44:17.000Z [id number]:45:18.000Z BP Sitting (Pre-Dialysis) 142/71 mmHg BP Sitting (Post-Dialysis) 146/76 mmHg Concurrent Access: falseAV Fistula Upper Arm (Right) Arterial BP Standing (Pre-Dialysis) 152/78 mmHg BP Standing (P ost-Dialysis) 108/65 mmHg Sitting Heart Rate Pre-Dialysis 94 BPM Sitting Heart Rate Post-Dialysis 84 BPM Standing Heart Rate Pre-Dialysis 84 BPM Standing Heart Rate Post-Dialysis 103 BPM Temperature Pre-Dialysis 98 degF Temperature Post -Dialysis 97.6 degF August 25, 2023 In-Center Hemodialysis Treatment [id number]:28:00.000Z [id number]:28:12.000Z BP Sitting (Pre-Dialysis) 146/79 mmHg BP Sitting (Post-Dialysis) 157/86 mmHg Concurrent Access: falseAV Fistula Upper Arm (Right) Arterial BP Standing (Pre-Dialysis) 138/69 mmHg BP Standing (P ost-Dialysis) 140/77 mmHg Sitting Heart Rate Pre-Dialysis 81 BPM Sitting Heart Rate Post-Dialysis 85 BPM Standing Heart Rate Pre-Dialysis 81 BPM Standing Heart Rate Post-Dialysis 94 BPM Temperature Pre-Dialysis 98 degF Temperature Post -Dialysis 97.6 degF August 22, 2023 In-Center Hemodialysis Treatment [id number]:01:00.000Z [id number]:00:56.000Z BP Sitting (Pre-Dialysis) 124/64 mmHg BP Sitting (Post-Dialysis) 137/68 mmHg Concurrent Access: falseAV Fistula Upper Arm (Right) Arterial BP Standing (Pre-Dialysis) 136/74 mmHg BP Standing (P ost-Dialysis) 122/54 mmHg Sitting Heart Rate Pre-Dialysis 83 BPM Sitting Heart Rate Post-Dialysis 87 BPM Standing Heart Rate Pre-Dialysis 75 BPM Standing Heart Rate Post-Dialysis 99 BPM Temperature Pre-Dialysis 97 degF Temperature Post -Dialysis 97.6 degF August 20, 2023 In-Center Hemodialysis Treatment [id number]:31:45.000Z [id number]:30:45.000Z BP Sitting (Pre-Dialysis) 146/75 mmHg BP Sitting (Post-Dialysis) 161/67 mmHg Concurrent Access: falseAV Fistula Upper Arm (Right) Arterial BP Standing (Pre-Dialysis) 151/83 mmHg BP Standing (P ost-Dialysis) 133/76 mmHg Sitting Heart Rate Pre-Dialysis 91 BPM Sitting Heart Rate Post-Dialysis 80 BPM Standing Heart Rate Pre-Dialysis 97 BPM Standing Heart Rate Post-Dialysis 92 BPM Temperature Pre-Dialysis 98 degF Temperature Post -Dialysis 97.3 degF August 18, 2023 In-Center Hemodialysis Treatment [id number]:06:44.000Z [id number]:06:45.000Z BP Sitting (Pre-Dialysis) 147/80 mmHg BP Sitting (Post-Dialysis) 147/73 mmHg Concurrent Access: falseAV Fistula Upper Arm (Right) Arterial BP Standing (Pre-Dialysis) 138/72 mmHg BP Standing (P ost-Dialysis) 129/69 mmHg Sitting Heart Rate Pre-Dialysis 93 BPM Sitting Heart Rate Post-Dialysis 81 BPM Standing Heart Rate Pre-Dialysis 94 BPM Standing Heart Rate Post-Dialysis 101 BPM Temperature Pre-Dialysis 98.1 degF Temperature Post -Dialysis 97.9 degF August 15, 2023 In-Center Hemodialysis Treatment [id number]:46:35.000Z [id number]:45:36.000Z BP Sitting (Pre-Dialysis) 150/84 mmHg BP Sitting (Post-Dialysis) 137/76 mmHg Concurrent Access: falseAV Fistula Upper Arm (Right) Arterial BP Standing (Pre-Dialysis) 139/73 mmHg BP Standing (P ost-Dialysis) 156/79 mmHg Sitting Heart Rate Pre-Dialysis 92 BPM Sitting Heart Rate Post-Dialysis 87 BPM Standing Heart Rate Pre-Dialysis 97 BPM Standing Heart Rate Post-Dialysis 102 BPM Temperature Pre-Dialysis 98 degF Temperature Post -Dialysis 98.1 degF August 13, 2023 In-Center Hemodialysis Treatment [id number]:47:11.000Z [id number]:46:12.000Z BP Sitting (Pre-Dialysis) 159/82 mmHg BP Sitting (Post-Dialysis) 168/86 mmHg Concurrent Access: falseAV Fistula Upper Arm (Right) Arterial BP Standing (Pre-Dialysis) 128/72 mmHg BP Standing (P ost-Dialysis) 132/74 mmHg Sitting Heart Rate Pre-Dialysis 90 BPM Sitting Heart Rate Post-Dialysis 87 BPM Standing Heart Rate Pre-Dialysis 96 BPM Standing Heart Rate Post-Dialysis 101 BPM Temperature Pre-Dialysis 97.5 degF Temperature Post -Dialysis 98 degF August 11, 2023 In-Center Hemodialysis Treatment [id number]:48:54.000Z 2452-44-07C53:37:55.000Z BP Sitting (Pre-Dialysis) 153/79 mmHg BP Sitting (Post-Dialysis) 149/76 mmHg Concurrent Access: falseAV Fistula Upper Arm (Right) Arterial BP Standing (Pre-Dialysis) 144/75 mmHg BP Standing (P ost-Dialysis) 110/66 mmHg Sitting Heart Rate Pre-Dialysis 98 BPM Sitting Heart Rate Post-Dialysis 94 BPM Standing Heart Rate Pre-Dialysis 100 BPM Standing Heart Rate Post-Dialysis 111 BPM Temperature Pre-Dialysis 98.1 degF Temperature Post -Dialysis 98 degF August 08, 2023 In-Center Hemodialysis Treatment [id number]:37:13.000Z [id number]:37:13.000Z BP Sitting (Pre-Dialysis) 160/89 mmHg BP Sitting (Post-Dialysis) 168/96 mmHg Concurrent Access: falseAV Fistula Upper Arm (Right) Arterial BP Standing (Pre-Dialysis) 167/78 mmHg BP Standing (P ost-Dialysis) 169/90 mmHg Sitting Heart Rate Pre-Dialysis 86 BPM Sitting Heart Rate Post-Dialysis 79 BPM Standing Heart Rate Pre-Dialysis 90 BPM Standing Heart Rate Post-Dialysis 92 BPM Temperature Pre-Dialysis 98 degF Temperature Post -Dialysis 98 degF August 04, 2023 In-Center Hemodialysis Treatment [id number]:52:31.000Z [id number]:54:32.000Z BP Sitting (Pre-Dialysis) 199/98 mmHg BP Sitting (Post-Dialysis) 172/101 mmHg Concurrent Access: falseAV Fistula Upper Arm (Right) Arterial BP Standing (Pre-Dialysis) 197/109 mmHg BP Standing (P ost-Dialysis) 161/73 mmHg Sitting Heart Rate Pre-Dialysis 68 BPM Sitting Heart Rate Post-Dialysis 76 BPM Standing Heart Rate Pre-Dialysis 76 BPM Standing Heart Rate Post-Dialysis 79 BPM Temperature Pre-Dialysis 98 degF Temperature Post -Dialysis 97.6 degF August 01, 2023 In-Center Hemodialysis Treatment [id number]:25:10.000Z [id number]:33:11.000Z BP Sitting (Pre-Dialysis) 150/73 mmHg BP Sitting (Post-Dialysis) 152/63 mmHg Concurrent Access: falseAV Fistula Upper Arm (Right) Arterial BP Standing (Pre-Dialysis) 151/79 mmHg BP Standing (P ost-Dialysis) 120/59 mmHg Sitting Heart Rate Pre-Dialysis 78 BPM Sitting Heart Rate Post-Dialysis 71 BPM Standing Heart Rate Pre-Dialysis 73 BPM Standing Heart Rate Post-Dialysis 81 BPM Temperature Pre-Dialysis 97.5 degF Temperature Post -Dialysis 97.9 degF July 30, 2023 In-Center Hemodialysis Treatment [id number]:15:20.000Z [id number]:01:20.000Z BP Sitting (Pre-Dialysis) 155/83 mmHg BP Sitting (Post-Dialysis) 129/77 mmHg Concurrent Access: falseAV Fistula Upper Arm (Right) Arterial BP Standing (Pre-Dialysis) 142/76 mmHg BP Standing (P ost-Dialysis) 126/74 mmHg Sitting Heart Rate Pre-Dialysis 82 BPM Sitting Heart Rate Post-Dialysis 79 BPM Standing Heart Rate Pre-Dialysis 86 BPM Standing Heart Rate Post-Dialysis 94 BPM Temperature Pre-Dialysis 98 degF Temperature Post -Dialysis 97.6 degF July 25, 2023 In-Center Hemodialysis Treatment 9314-23-26Z59:12:00.000Z [id number]:16:13.000Z BP Sitting (Pre-Dialysis) 150/88 mmHg BP Sitting (Post-Dialysis) 149/91 mmHg Concurrent Access: falseAV Fistula Upper Arm (Right) Arterial BP Standing (Pre-Dialysis) 169/95 mmHg BP Standing (P ost-Dialysis) 139/88 mmHg Sitting Heart Rate Pre-Dialysis 87 BPM Sitting Heart Rate Post-Dialysis 72 BPM Standing Heart Rate Pre-Dialysis 82 BPM Standing Heart Rate Post-Dialysis 92 BPM Temperature Pre-Dialysis 97.4 degF Temperature Post -Dialysis 98 degF July 23, 2023 In-Center Hemodialysis Treatment [id number]:02:00.000Z [id number]:01:47.000Z BP Sitting (Pre-Dialysis) 131/72 mmHg BP Sitting (Post-Dialysis) 168/76 mmHg Concurrent Access: falseAV Fistula Upper Arm (Right) Arterial BP Standing (Pre-Dialysis) 126/72 mmHg BP Standing (P ost-Dialysis) 147/75 mmHg Sitting Heart Rate Pre-Dialysis 81 BPM Sitting Heart Rate Post-Dialysis 78 BPM Standing Heart Rate Pre-Dialysis 90 BPM Standing Heart Rate Post-Dialysis 99 BPM Temperature Pre-Dialysis 97.5 degF Temperature Post -Dialysis 97.6 degF July 21, 2023 In-Center Hemodialysis Treatment [id number]:49:00.000Z [id number]:51:15.000Z BP Sitting (Pre-Dialysis) 133/81 mmHg BP Sitting (Post-Dialysis) 135/72 mmHg Concurrent Access: falseAV Fistula Upper Arm (Right) Arterial BP Standing (Pre-Dialysis) 136/73 mmHg BP Standing (P ost-Dialysis) 138/53 mmHg Sitting Heart Rate Pre-Dialysis 88 BPM Sitting Heart Rate Post-Dialysis 75 BPM Standing Heart Rate Pre-Dialysis 80 BPM Standing Heart Rate Post-Dialysis 92 BPM Temperature Pre-Dialysis 98 degF Temperature Post -Dialysis 98.1 degF July 18, 2023 In-Center Hemodialysis Treatment [id number]:30:23.000Z 1585-96-55K87:31:23.000Z BP Sitting (Pre-Dialysis) 150/80 mmHg BP Sitting (Post-Dialysis) 128/78 mmHg Concurrent Access: falseAV Fistula Upper Arm (Right) Arterial BP Standing (Pre-Dialysis) 144/80 mmHg BP Standing (P ost-Dialysis) 135/74 mmHg Sitting Heart Rate Pre-Dialysis 78 BPM Sitting Heart Rate Post-Dialysis 80 BPM Standing Heart Rate Pre-Dialysis 86 BPM Standing Heart Rate Post-Dialysis 89 BPM Temperature Pre-Dialysis 97.5 degF Temperature Post -Dialysis 98 degF July 16, 2023 In-Center Hemodialysis Treatment [id number]:38:22.000Z 2001-50-04P93:39:23.000Z BP Sitting (Pre-Dialysis) 157/85 mmHg BP Sitting (Post-Dialysis) 141/55 mmHg Concurrent Access: falseAV Fistula Upper Arm (Right) Arterial BP Standing (Pre-Dialysis) 152/84 mmHg BP Standing (P ost-Dialysis) 119/75 mmHg Sitting Heart Rate Pre-Dialysis 80 BPM Sitting Heart Rate Post-Dialysis 81 BPM Standing Heart Rate Pre-Dialysis 90 BPM Standing Heart Rate Post-Dialysis 94 BPM Temperature Pre-Dialysis 98.1 degF Temperature Post -Dialysis 98.4 degF July 14, 2023 In-Center Hemodialysis Treatment 2660-95-05M00:46:23.000Z [id number]:37:23.000Z BP Sitting (Pre-Dialysis) 147/80 mmHg BP Sitting (Post-Dialysis) 149/72 mmHg Concurrent Access: falseAV Fistula Upper Arm (Right) Arterial BP Standing (Pre-Dialysis) 144/84 mmHg BP Standing (P ost-Dialysis) 118/69 mmHg Sitting Heart Rate Pre-Dialysis 91 BPM Sitting Heart Rate Post-Dialysis 98 BPM Standing Heart Rate Pre-Dialysis 86 BPM Standing Heart Rate Post-Dialysis 98 BPM Temperature Pre-Dialysis 98 degF Temperature Post -Dialysis 98 degF July 12, 2023 In-Center Hemodialysis Treatment [id number]:27:16.000Z [id number]:15:15.000Z BP Sitting (Pre-Dialysis) 160/90 mmHg BP Sitting (Post-Dialysis) 163/91 mmHg Concurrent Access: falseAV Fistula Upper Arm (Right) Arterial BP Standing (Pre-Dialysis) 160/89 mmHg BP Standing (P ost-Dialysis) 146/57 mmHg Sitting Heart Rate Pre-Dialysis 82 BPM Sitting Heart Rate Post-Dialysis 71 BPM Standing Heart Rate Pre-Dialysis 78 BPM Standing Heart Rate Post-Dialysis 79 BPM Temperature Pre-Dialysis 98 degF Temperature Post -Dialysis 98 degF July 10, 2023 In-Center Hemodialysis Treatment [id number]:20:16.000Z 8602-57-05Z02:06:15.000Z BP Sitting (Pre-Dialysis) 136/78 mmHg BP Sitting (Post-Dialysis) 124/74 mmHg Concurrent Access: falseAV Fistula Upper Arm (Right) Arterial BP Standing (Pre-Dialysis) 135/68 mmHg BP Standing (P ost-Dialysis) 116/62 mmHg Sitting Heart Rate Pre-Dialysis 84 BPM Sitting Heart Rate Post-Dialysis 62 BPM Standing Heart Rate Pre-Dialysis 89 BPM Standing Heart Rate Post-Dialysis 72 BPM Temperature Pre-Dialysis 98 degF Temperature Post -Dialysis 98 degF July 08, 2023 In-Center Hemodialysis Treatment [id number]:18:15.000Z [id number]:53:16.000Z BP Sitting (Pre-Dialysis) 142/73 mmHg BP Sitting (Post-Dialysis) 118/65 mmHg Concurrent Access: falseAV Fistula Upper Arm (Right) Arterial BP Standing (Pre-Dialysis) 129/71 mmHg BP Standing (P ost-Dialysis) 120/61 mmHg Sitting Heart Rate Pre-Dialysis 79 BPM Sitting Heart Rate Post-Dialysis 80 BPM Standing Heart Rate Pre-Dialysis 84 BPM Standing Heart Rate Post-Dialysis 111 BPM Temperature Pre-Dialysis 98.1 degF Temperature Post -Dialysis 98.5 degF July 05, 2023 In-Center Hemodialysis Treatment [id number]:13:37.000Z [id number]:56:36.000Z BP Sitting (Pre-Dialysis) 179/105 mmHg BP Sitting (Post-Dialysis) 131/76 mmHg Concurrent Access: falseAV Fistula Upper Arm (Right) Arterial BP Standing (Pre-Dialysis) 199/103 mmHg BP Standing (P ost-Dialysis) 120/70 mmHg Sitting Heart Rate Pre-Dialysis 81 BPM Sitting Heart Rate Post-Dialysis 83 BPM Standing Heart Rate Pre-Dialysis 77 BPM Standing Heart Rate Post-Dialysis 92 BPM Temperature Pre-Dialysis 98 degF Temperature Post -Dialysis 98.1 degF July 03, 2023 In-Center Hemodialysis Treatment 8691-01-23L48:16:36.000Z 4340-35-20S43:16:36.000Z BP Sitting (Pre-Dialysis) 165/90 mmHg BP Sitting (Post-Dialysis) 149/89 mmHg Concurrent Access: falseAV Fistula Upper Arm (Right) Arterial BP Standing (Pre-Dialysis) 168/86 mmHg BP Standing (P ost-Dialysis) 157/88 mmHg Sitting Heart Rate Pre-Dialysis 89 BPM Sitting Heart Rate Post-Dialysis 79 BPM Standing Heart Rate Pre-Dialysis 88 BPM Standing Heart Rate Post-Dialysis 83 BPM Temperature Pre-Dialysis 97.9 degF Temperature Post -Dialysis 97 degF July 01, 2023 In-Center Hemodialysis Treatment 9546-64-63J06:04:00.000Z 4425-85-04M49:07:36.000Z BP Sitting (Pre-Dialysis) 150/62 mmHg BP Sitting (Post-Dialysis) 147/61 mmHg Concurrent Access: falseAV Fistula Upper Arm (Right) Arterial BP Standing (Pre-Dialysis) 146/68 mmHg BP Standing (P ost-Dialysis) 128/70 mmHg Sitting Heart Rate Pre-Dialysis 73 BPM Sitting Heart Rate Post-Dialysis 71 BPM Standing Heart Rate Pre-Dialysis 83 BPM Standing Heart Rate Post-Dialysis 88 BPM Temperature Pre-Dialysis 97.4 degF Temperature Post -Dialysis 97.2 degF June 28, 2023 In-Center Hemodialysis Treatment [id number]:09:24.000Z 7991-88-43H91:09:23.000Z BP Sitting (Pre-Dialysis) 164/87 mmHg BP Sitting (Post-Dialysis) 146/75 mmHg Concurrent Access: falseAV Fistula Upper Arm (Right) Arterial BP Standing (Pre-Dialysis) 176/95 mmHg BP Standing (P ost-Dialysis) 120/66 mmHg Sitting Heart Rate Pre-Dialysis 89 BPM Sitting Heart Rate Post-Dialysis 81 BPM Standing Heart Rate Pre-Dialysis 79 BPM Standing Heart Rate Post-Dialysis 93 BPM Temperature Pre-Dialysis 97.4 degF Temperature Post -Dialysis 97.4 degF June 26, 2023 In-Center Hemodialysis Treatment [id number]:11:24.000Z 4318-18-58C35:01:23.000Z BP Sitting (Pre-Dialysis) 132/74 mmHg BP Sitting (Post-Dialysis) 136/77 mmHg Concurrent Access: falseAV Fistula Upper Arm (Right) Arterial BP Standing (Pre-Dialysis) 132/75 mmHg BP Standing (P ost-Dialysis) 115/69 mmHg Sitting Heart Rate Pre-Dialysis 91 BPM Sitting Heart Rate Post-Dialysis 86 BPM Standing Heart Rate Pre-Dialysis 91 BPM Standing Heart Rate Post-Dialysis 90 BPM Temperature Pre-Dialysis 98 degF Temperature Post -Dialysis 98 degF June 24, 2023 In-Center Hemodialysis Treatment [id number]:13:24.000Z 6598-18-88G49:03:23.000Z BP Sitting (Pre-Dialysis) 158/76 mmHg BP Sitting (Post-Dialysis) 154/84 mmHg Concurrent Access: falseAV Fistula Upper Arm (Right) Arterial BP Standing (Pre-Dialysis) 162/85 mmHg BP Standing (P ost-Dialysis) 133/76 mmHg Sitting Heart Rate Pre-Dialysis 84 BPM Sitting Heart Rate Post-Dialysis 78 BPM Standing Heart Rate Pre-Dialysis 85 BPM Standing Heart Rate Post-Dialysis 86 BPM Temperature Pre-Dialysis 98 degF Temperature Post -Dialysis 98 degF June 21, 2023 In-Center Hemodialysis Treatment 2665-33-61S25:20:00.000Z 8711-44-00G16:20:22.000Z BP Sitting (Pre-Dialysis) 155/78 mmHg BP Sitting (Post-Dialysis) 132/75 mmHg Concurrent Access: falseAV Fistula Upper Arm (Right) Arterial BP Standing (Pre-Dialysis) 150/78 mmHg BP Standing (P ost-Dialysis) 122/57 mmHg Sitting Heart Rate Pre-Dialysis 86 BPM Sitting Heart Rate Post-Dialysis 87 BPM Standing Heart Rate Pre-Dialysis 91 BPM Standing Heart Rate Post-Dialysis 98 BPM Temperature Pre-Dialysis 98 degF Temperature Post -Dialysis 98.5 degF June 19, 2023 In-Center Hemodialysis Treatment 4615-03-64A29:10:22.000Z 6961-55-46J95:10:22.000Z BP Sitting (Pre-Dialysis) 131/71 mmHg BP Sitting (Post-Dialysis) 131/79 mmHg Concurrent Access: falseAV Fistula Upper Arm (Right) Arterial BP Standing (Pre-Dialysis) 153/75 mmHg BP Standing (P ost-Dialysis) 120/64 mmHg Sitting Heart Rate Pre-Dialysis 81 BPM Sitting Heart Rate Post-Dialysis 84 BPM Standing Heart Rate Pre-Dialysis 77 BPM Standing Heart Rate Post-Dialysis 85 BPM Temperature Pre-Dialysis 97.9 degF Temperature Post -Dialysis 97.8 degF June 17, 2023 In-Center Hemodialysis Treatment 6324-13-38N46:03:00.000Z [id number]:03:22.000Z BP Sitting (Pre-Dialysis) 129/66 mmHg BP Sitting (Post-Dialysis) 136/70 mmHg Concurrent Access: falseAV Fistula Upper Arm (Right) Arterial BP Standing (Pre-Dialysis) 127/68 mmHg Sitti ng Heart Rate Post-Dialysis 74 BPM Sitting Heart Rate Pre-Dialysis 75 BPM Temperatu re Post-Dialysis 98.2 degF Standing Heart Rate Pre-Dialysis 77 BPM Temperature Pre-Dialysis 98.2 degF June 14, 2023 In-Center Hemodialysis Treatment [id number]:52:59.000Z [id number]:55:59.000Z BP Sitting (Pre-Dialysis) 131/77 mmHg BP Sitting (Post-Dialysis) 140/67 mmHg Concurrent Access: falseAV Fistula Upper Arm (Right) Arterial BP Standing (Pre-Dialysis) 125/65 mmHg BP Standing (P ost-Dialysis) 120/72 mmHg Sitting Heart Rate Pre-Dialysis 86 BPM Sitting Heart Rate Post-Dialysis 79 BPM Standing Heart Rate Pre-Dialysis 88 BPM Standing Heart Rate Post-Dialysis 84 BPM Temperature Pre-Dialysis 98.3 degF Temperature Post -Dialysis 97.8 degF June 12, 2023 In-Center Hemodialysis Treatment 3736-37-07X58:06:59.000Z [id number]:07:59.000Z BP Sitting (Pre-Dialysis) 108/54 mmHg BP Sitting (Post-Dialysis) 122/60 mmHg Concurrent Access: falseAV Fistula Upper Arm (Right) Arterial BP Standing (Pre-Dialysis) 133/65 mmHg BP Standing (P ost-Dialysis) 116/61 mmHg Sitting Heart Rate Pre-Dialysis 92 BPM Sitting Heart Rate Post-Dialysis 83 BPM Standing Heart Rate Pre-Dialysis 85 BPM Standing Heart Rate Post-Dialysis 90 BPM Temperature Pre-Dialysis 98 degF Temperature Post -Dialysis 98.1 degF June 10, 2023 In-Center Hemodialysis Treatment 7322-12-18C23:04:59.000Z 2399-18-41D85:03:59.000Z BP Sitting (Pre-Dialysis) 108/62 mmHg BP Sitting (Post-Dialysis) 147/78 mmHg Concurrent Access: falseAV Fistula Upper Arm (Right) Arterial BP Standing (Pre-Dialysis) 138/74 mmHg BP Standing (P ost-Dialysis) 133/67 mmHg Sitting Heart Rate Pre-Dialysis 89 BPM Sitting Heart Rate Post-Dialysis 85 BPM Standing Heart Rate Pre-Dialysis 85 BPM Standing Heart Rate Post-Dialysis 98 BPM Temperature Pre-Dialysis 98 degF Temperature Post -Dialysis 98.3 degF June 07, 2023 In-Center Hemodialysis Treatment [id number]:21:12.000Z 6777-84-48A80:22:13.000Z BP Sitting (Pre-Dialysis) 133/73 mmHg BP Sitting (Post-Dialysis) 137/78 mmHg Concurrent Access: falseAV Fistula Upper Arm (Right) Arterial BP Standing (Pre-Dialysis) 115/65 mmHg Sitti ng Heart Rate Post-Dialysis 78 BPM Sitting Heart Rate Pre-Dialysis 84 BPM Temperatu re Post-Dialysis 98.5 degF Standing Heart Rate Pre-Dialysis 94 BPM Temperature Pre-Dialysis 98 degF June 06, 2023 Additional Day Of Dialysis Treatment [id number]:20:13.000Z 0620-33-82T19:19:13.000Z BP Sitting (Pre-Dialysis) 139/72 mmHg BP Sitting (Post-Dialysis) 155/77 mmHg Concurrent Access: falseAV Fistula Upper Arm (Right) Arterial BP Standing (Pre-Dialysis) 126/72 mmHg BP Standing (P ost-Dialysis) 138/69 mmHg Sitting Heart Rate Pre-Dialysis 98 BPM Sitting Heart Rate Post-Dialysis 76 BPM Standing Heart Rate Pre-Dialysis 98 BPM Standing Heart Rate Post-Dialysis 88 BPM Temperature Pre-Dialysis 98 degF Temperature Post -Dialysis 98.7 degF June 05, 2023 In-Center Hemodialysis Treatment 1529-84-98N72:15:13.000Z 5434-13-31G77:30:00.000Z BP Sitting (Pre-Dialysis) 124/65 mmHg BP Sitting (Post-Dialysis) 115/59 mmHg Concurrent Access: falseAV Fistula Upper Arm (Right) Arterial BP Standing (Pre-Dialysis) 120/67 mmHg BP Standing (P ost-Dialysis) 109/57 mmHg Sitting Heart Rate Pre-Dialysis 84 BPM Sitting Heart Rate Post-Dialysis 82 BPM Standing Heart Rate Pre-Dialysis 85 BPM Standing Heart Rate Post-Dialysis 84 BPM Temperature Pre-Dialysis 98 degF Temperature Post -Dialysis 97.6 degF June 03, 2023 In-Center Hemodialysis Treatment 9633-34-27A73:18:12.000Z 1782-45-57F70:17:13.000Z BP Sitting (Pre-Dialysis) 126/72 mmHg BP Sitting (Post-Dialysis) 132/71 mmHg Concurrent Access: falseAV Fistula Upper Arm (Right) Arterial BP Standing (Pre-Dialysis) 142/77 mmHg BP Standing (P ost-Dialysis) 140/72 mmHg Sitting Heart Rate Pre-Dialysis 90 BPM Sitting Heart Rate Post-Dialysis 84 BPM Standing Heart Rate Pre-Dialysis 85 BPM Standing Heart Rate Post-Dialysis 100 BPM Temperature Pre-Dialysis 97.9 degF Temperature Post -Dialysis 98.6 degF May 31, 2023 In-Center Hemodialysis Treatment 5923-55-28S16:24:00.000Z 3125-49-64W21:26:08.000Z BP Sitting (Pre-Dialysis) 137/77 mmHg BP Sitting (Post-Dialysis) 126/64 mmHg Concurrent Access: falseAV Fistula Upper Arm (Right) Arterial BP Standing (Pre-Dialysis) 145/78 mmHg BP Standing (P ost-Dialysis) 111/41 mmHg Sitting Heart Rate Pre-Dialysis 84 BPM Sitting Heart Rate Post-Dialysis 78 BPM Standing Heart Rate Pre-Dialysis 82 BPM Standing Heart Rate Post-Dialysis 90 BPM Temperature Pre-Dialysis 98.1 degF Temperature Post -Dialysis 98.7 degF May 29, 2023 In-Center Hemodialysis Treatment 5851-34-69Y06:19:08.000Z 6332-57-95C86:23:08.000Z BP Sitting (Pre-Dialysis) 122/59 mmHg BP Sitting (Post-Dialysis) 128/71 mmHg Concurrent Access: falseAV Fistula Upper Arm (Right) Arterial BP Standing (Pre-Dialysis) 111/63 mmHg BP Standing (P ost-Dialysis) 121/51 mmHg Sitting Heart Rate Pre-Dialysis 80 BPM Sitting Heart Rate Post-Dialysis 73 BPM Standing Heart Rate Pre-Dialysis 87 BPM Standing Heart Rate Post-Dialysis 92 BPM Temperature Pre-Dialysis 98 degF Temperature Post -Dialysis 98 degF May 27, 2023 In-Center Hemodialysis Treatment [id number]:15:07.000Z 1270-61-86M85:13:08.000Z BP Sitting (Pre-Dialysis) 129/66 mmHg BP Sitting (Post-Dialysis) 133/77 mmHg Concurrent Access: falseAV Fistula Upper Arm (Right) Arterial BP Standing (Pre-Dialysis) 132/74 mmHg BP Standing (P ost-Dialysis) 128/60 mmHg Sitting Heart Rate Pre-Dialysis 85 BPM Sitting Heart Rate Post-Dialysis 71 BPM Standing Heart Rate Pre-Dialysis 84 BPM Standing Heart Rate Post-Dialysis 88 BPM Temperature Pre-Dialysis 97.5 degF Temperature Post -Dialysis 98.7 degF May 24, 2023 In-Center Hemodialysis Treatment 9497-06-48P35:43:40.000Z [id number]:35:39.000Z BP Sitting (Pre-Dialysis) 115/71 mmHg BP Sitting (Post-Dialysis) 142/85 mmHg Concurrent Access: falseAV Fistula Upper Arm (Right) Arterial BP Standing (Pre-Dialysis) 118/64 mmHg BP Standing (P ost-Dialysis) 136/67 mmHg Sitting Heart Rate Pre-Dialysis 77 BPM Sitting Heart Rate Post-Dialysis 69 BPM Standing Heart Rate Pre-Dialysis 87 BPM Standing Heart Rate Post-Dialysis 84 BPM Temperature Pre-Dialysis 97.6 degF Temperature Post -Dialysis 98 degF May 22, 2023 In-Center Hemodialysis Treatment 1707-20-61I15:21:37.000Z 3555-11-19W72:20:37.000Z BP Sitting (Pre-Dialysis) 138/78 mmHg BP Sitting (Post-Dialysis) 145/81 mmHg Concurrent Access: falseAV Fistula Upper Arm (Right) Arterial BP Standing (Pre-Dialysis) 139/76 mmHg BP Standing (P ost-Dialysis) 132/74 mmHg Sitting Heart Rate Pre-Dialysis 76 BPM Sitting Heart Rate Post-Dialysis 88 BPM Standing Heart Rate Pre-Dialysis 92 BPM Standing Heart Rate Post-Dialysis 96 BPM Temperature Pre-Dialysis 96.3 degF Temperature Post -Dialysis 97.3 degF May 20, 2023 In-Center Hemodialysis Treatment [id number]:23:36.000Z 7112-32-36T95:21:37.000Z BP Sitting (Pre-Dialysis) 139/72 mmHg BP Sitting (Post-Dialysis) 151/80 mmHg Concurrent Access: falseAV Fistula Upper Arm (Right) Arterial BP Standing (Pre-Dialysis) 144/78 mmHg BP Standing (P ost-Dialysis) 130/75 mmHg Sitting Heart Rate Pre-Dialysis 89 BPM Sitting Heart Rate Post-Dialysis 88 BPM Standing Heart Rate Pre-Dialysis 94 BPM Standing Heart Rate Post-Dialysis 100 BPM Temperature Pre-Dialysis 98.4 degF Temperature Post -Dialysis 98.7 degF May 17, 2023 In-Center Hemodialysis Treatment [id number]:05:00.000Z [id number]:04:27.000Z BP Sitting (Pre-Dialysis) 147/82 mmHg BP Sitting (Post-Dialysis) 147/83 mmHg Concurrent Access: falseAV Fistula Upper Arm (Right) Arterial BP Standing (Pre-Dialysis) 154/82 mmHg BP Standing (P ost-Dialysis) 140/78 mmHg Sitting Heart Rate Pre-Dialysis 94 BPM Sitting Heart Rate Post-Dialysis 83 BPM Standing Heart Rate Pre-Dialysis 92 BPM Standing Heart Rate Post-Dialysis 96 BPM Temperature Pre-Dialysis 98.6 degF Temperature Post -Dialysis 98.8 degF May 13, 2023 In-Center Hemodialysis Treatment [id number]:13:28.000Z [id number]:10:27.000Z BP Sitting (Pre-Dialysis) 126/70 mmHg BP Sitting (Post-Dialysis) 126/69 mmHg Concurrent Access: falseAV Fistula Upper Arm (Right) Arterial BP Standing (Pre-Dialysis) 126/75 mmHg BP Standing (P ost-Dialysis) 133/70 mmHg Sitting Heart Rate Pre-Dialysis 80 BPM Sitting Heart Rate Post-Dialysis 75 BPM Standing Heart Rate Pre-Dialysis 84 BPM Standing Heart Rate Post-Dialysis 92 BPM Temperature Pre-Dialysis 97.9 degF Temperature Post -Dialysis 98 degF May 10, 2023 In-Center Hemodialysis Treatment [id number]:17:34.000Z [id number]:21:34.000Z BP Sitting (Pre-Dialysis) 125/68 mmHg BP Sitting (Post-Dialysis) 129/75 mmHg Concurrent Access: falseAV Fistula Upper Arm (Right) Arterial BP Standing (Pre-Dialysis) 122/70 mmHg BP Standing (P ost-Dialysis) 139/73 mmHg Sitting Heart Rate Pre-Dialysis 77 BPM Sitting Heart Rate Post-Dialysis 72 BPM Standing Heart Rate Pre-Dialysis 86 BPM Standing Heart Rate Post-Dialysis 81 BPM Temperature Pre-Dialysis 98 degF Temperature Post -Dialysis 98.1 degF May 08, 2023 In-Center Hemodialysis Treatment [id number]:51:35.000Z [id number]:37:34.000Z BP Sitting (Pre-Dialysis) 116/59 mmHg BP Sitting (Post-Dialysis) 133/78 mmHg Concurrent Access: falseAV Fistula Upper Arm (Right) Arterial BP Standing (Pre-Dialysis) 128/69 mmHg BP Standing (P ost-Dialysis) 109/58 mmHg Sitting Heart Rate Pre-Dialysis 80 BPM Sitting Heart Rate Post-Dialysis 76 BPM Standing Heart Rate Pre-Dialysis 73 BPM Standing Heart Rate Post-Dialysis 86 BPM Temperature Pre-Dialysis 97.5 degF Temperature Post -Dialysis 97.5 degF May 06, 2023 In-Center Hemodialysis Treatment [id number]:19:34.000Z [id number]:19:34.000Z BP Sitting (Pre-Dialysis) 138/60 mmHg BP Sitting (Post-Dialysis) 164/83 mmHg Concurrent Access: falseAV Fistula Upper Arm (Right) Arterial BP Standing (Pre-Dialysis) 128/72 mmHg BP Standing (P ost-Dialysis) 151/69 mmHg Sitting Heart Rate Pre-Dialysis 84 BPM Sitting Heart Rate Post-Dialysis 93 BPM Standing Heart Rate Pre-Dialysis 88 BPM Standing Heart Rate Post-Dialysis 102 BPM Temperature Pre-Dialysis 97.4 degF Temperature Post -Dialysis 98.4 degF May 05, 2023 Additional Day Of Dialysis Treatment [id number]:02:00.000Z [id number]:07:36.000Z BP Sitting (Pre-Dialysis) 152/76 mmHg BP Sitting (Post-Dialysis) 154/83 mmHg Concurrent Access: falseAV Fistula Upper Arm (Right) Arterial BP Standing (Pre-Dialysis) 148/80 mmHg BP Standing (P ost-Dialysis) 144/75 mmHg Sitting Heart Rate Pre-Dialysis 78 BPM Sitting Heart Rate Post-Dialysis 78 BPM Standing Heart Rate Pre-Dialysis 81 BPM Standing Heart Rate Post-Dialysis 89 BPM Temperature Pre-Dialysis 98.2 degF Temperature Post -Dialysis 97.5 degF May 03, 2023 In-Center Hemodialysis Treatment [id number]:08:27.000Z [id number]:03:28.000Z BP Sitting (Pre-Dialysis) 52/84 mmHg BP Sitting (Post-Dialysis) 133/72 mmHg Concurrent Access: falseAV Fistula Upper Arm (Right) Arterial BP Standing (Pre-Dialysis) 139/83 mmHg BP Standing (P ost-Dialysis) 127/69 mmHg Sitting Heart Rate Pre-Dialysis 88 BPM Sitting Heart Rate Post-Dialysis 72 BPM Standing Heart Rate Pre-Dialysis 87 BPM Standing Heart Rate Post-Dialysis 79 BPM Temperature Pre-Dialysis 98.1 degF Temperature Post -Dialysis 98 degF May 01, 2023 In-Center Hemodialysis Treatment [id number]:13:28.000Z [id number]:19:28.000Z BP Sitting (Pre-Dialysis) 158/83 mmHg BP Sitting (Post-Dialysis) 145/77 mmHg Concurrent Access: falseAV Fistula Upper Arm (Right) Arterial BP Standing (Pre-Dialysis) 155/71 mmHg BP Standing (P ost-Dialysis) 140/69 mmHg Sitting Heart Rate Pre-Dialysis 73 BPM Sitting Heart Rate Post-Dialysis 78 BPM Standing Heart Rate Pre-Dialysis 81 BPM Standing Heart Rate Post-Dialysis 84 BPM Temperature Pre-Dialysis 98 degF Temperature Post -Dialysis 97.9 degF April 29, 2023 In-Center Hemodialysis Treatment [id number]:08:27.000Z 7743-73-64K00:07:28.000Z BP Sitting (Pre-Dialysis) 127/73 mmHg BP Sitting (Post-Dialysis) 132/63 mmHg Concurrent Access: falseAV Fistula Upper Arm (Right) Arterial BP Standing (Pre-Dialysis) 126/70 mmHg BP Standing (P ost-Dialysis) 120/60 mmHg Sitting Heart Rate Pre-Dialysis 80 BPM Sitting Heart Rate Post-Dialysis 81 BPM Standing Heart Rate Pre-Dialysis 92 BPM Standing Heart Rate Post-Dialysis 88 BPM Temperature Pre-Dialysis 97.4 degF Temperature Post -Dialysis 98.7 degF April 28, 2023 Additional Day Of Dialysis Treatment [id number]:50:28.000Z [id number]:51:29.000Z BP Sitting (Pre-Dialysis) 130/68 mmHg BP Sitting (Post-Dialysis) 126/68 mmHg Concurrent Access: falseAV Fistula Upper Arm (Right) Arterial BP Standing (Pre-Dialysis) 125/67 mmHg BP Standing (P ost-Dialysis) 127/62 mmHg Sitting Heart Rate Pre-Dialysis 78 BPM Sitting Heart Rate Post-Dialysis 85 BPM Standing Heart Rate Pre-Dialysis 81 BPM Standing Heart Rate Post-Dialysis 87 BPM Temperature Pre-Dialysis 97 degF Temperature Post -Dialysis 97 degF April 26, 2023 In-Center Hemodialysis Treatment [id number]:13:45.000Z 2611-24-99K98:15:45.000Z BP Sitting (Pre-Dialysis) 144/77 mmHg BP Sitting (Post-Dialysis) 157/83 mmHg Concurrent Access: falseAV Fistula Upper Arm (Right) Arterial BP Standing (Pre-Dialysis) 147/75 mmHg BP Standing (P ost-Dialysis) 145/64 mmHg Sitting Heart Rate Pre-Dialysis 77 BPM Sitting Heart Rate Post-Dialysis 81 BPM Standing Heart Rate Pre-Dialysis 82 BPM Standing Heart Rate Post-Dialysis 86 BPM Temperature Pre-Dialysis 98 degF Temperature Post -Dialysis 98 degF April 24, 2023 In-Center Hemodialysis Treatment [id number]:09:45.000Z [id number]:09:45.000Z BP Sitting (Pre-Dialysis) 142/74 mmHg BP Sitting (Post-Dialysis) 133/74 mmHg Concurrent Access: falseAV Fistula Upper Arm (Right) Arterial BP Standing (Pre-Dialysis) 138/73 mmHg BP Standing (P ost-Dialysis) 143/70 mmHg Sitting Heart Rate Pre-Dialysis 80 BPM Sitting Heart Rate Post-Dialysis 83 BPM Standing Heart Rate Pre-Dialysis 89 BPM Standing Heart Rate Post-Dialysis 87 BPM Temperature Pre-Dialysis 97.4 degF Temperature Post -Dialysis 97.8 degF April 22, 2023 In-Center Hemodialysis Treatment [id number]:12:45.000Z [id number]:12:45.000Z BP Sitting (Pre-Dialysis) 129/73 mmHg BP Sitting (Post-Dialysis) 151/81 mmHg Concurrent Access: falseAV Fistula Upper Arm (Right) Arterial BP Standing (Pre-Dialysis) 136/69 mmHg BP Standing (P ost-Dialysis) 146/78 mmHg Sitting Heart Rate Pre-Dialysis 85 BPM Sitting Heart Rate Post-Dialysis 86 BPM Standing Heart Rate Pre-Dialysis 98 BPM Standing Heart Rate Post-Dialysis 90 BPM Temperature Pre-Dialysis 98.1 degF Temperature Post -Dialysis 97.4 degF April 21, 2023 In-Center Hemodialysis Treatment [id number]:29:43.000Z 3075-70-38I15:32:44.000Z BP Sitting (Pre-Dialysis) 150/78 mmHg BP Sitting (Post-Dialysis) 144/76 mmHg Concurrent Access: falseAV Fistula Upper Arm (Right) Arterial BP Standing (Pre-Dialysis) 154/78 mmHg Sitti ng Heart Rate Post-Dialysis 80 BPM Sitting Heart Rate Pre-Dialysis 85 BPM Temperatu re Post-Dialysis 97.9 degF Standing Heart Rate Pre-Dialysis 83 BPM Temperature Pre-Dialysis 98 degF April 19, 2023 In-Center Hemodialysis Treatment 7507-78-65B95:50:00.000Z 5013-52-61U65:46:18.000Z BP Sitting (Pre-Dialysis) 149/73 mmHg BP Sitting (Post-Dialysis) 127/70 mmHg Concurrent Access: falseAV Fistula Upper Arm (Right) Arterial BP Standing (Pre-Dialysis) 166/82 mmHg BP Standing (P ost-Dialysis) 112/64 mmHg Sitting Heart Rate Pre-Dialysis 78 BPM Sitting Heart Rate Post-Dialysis 80 BPM Standing Heart Rate Pre-Dialysis 91 BPM Standing Heart Rate Post-Dialysis 89 BPM Temperature Pre-Dialysis 97.3 degF Temperature Post -Dialysis 97.9 degF April 17, 2023 In-Center Hemodialysis Treatment [id number]:17:18.000Z 9189-66-00W16:15:18.000Z BP Sitting (Pre-Dialysis) 143/77 mmHg BP Sitting (Post-Dialysis) 142/78 mmHg Concurrent Access: falseAV Fistula Upper Arm (Right) Arterial BP Standing (Pre-Dialysis) 144/70 mmHg BP Standing (P ost-Dialysis) 139/77 mmHg Sitting Heart Rate Pre-Dialysis 73 BPM Sitting Heart Rate Post-Dialysis 75 BPM Standing Heart Rate Pre-Dialysis 78 BPM Standing Heart Rate Post-Dialysis 81 BPM Temperature Pre-Dialysis 97.5 degF Temperature Post -Dialysis 98 degF April 15, 2023 In-Center Hemodialysis Treatment 6270-06-58V43:13:59.000Z 2755-88-23Z56:58:00.000Z BP Sitting (Pre-Dialysis) 151/73 mmHg BP Sitting (Post-Dialysis) 157/95 mmHg Concurrent Access: falseAV Fistula Upper Arm (Right) Arterial BP Standing (Pre-Dialysis) 154/90 mmHg BP Standing (P ost-Dialysis) 151/72 mmHg Sitting Heart Rate Pre-Dialysis 84 BPM Sitting Heart Rate Post-Dialysis 85 BPM Standing Heart Rate Pre-Dialysis 83 BPM Standing Heart Rate Post-Dialysis 84 BPM Temperature Pre-Dialysis 97.2 degF Temperature Post -Dialysis 98.4 degF April 14, 2023 In-Center Hemodialysis Treatment 7964-13-05Z50:28:00.000Z [id number]:33:38.000Z BP Sitting (Pre-Dialysis) 158/81 mmHg BP Sitting (Post-Dialysis) 143/80 mmHg Concurrent Access: falseAV Fistula Upper Arm (Right) Arterial BP Standing (Pre-Dialysis) 154/66 mmHg BP Standing (P ost-Dialysis) 134/67 mmHg Sitting Heart Rate Pre-Dialysis 82 BPM Sitting Heart Rate Post-Dialysis 80 BPM Standing Heart Rate Pre-Dialysis 88 BPM Standing Heart Rate Post-Dialysis 87 BPM Temperature Pre-Dialysis 98.7 degF Temperature Post -Dialysis 98.1 degF April 12, 2023 In-Center Hemodialysis Treatment [id number]:25:46.000Z 5687-35-33M99:22:47.000Z BP Sitting (Pre-Dialysis) 184/103 mmHg BP Sitting (Post-Dialysis) 138/71 mmHg Concurrent Access: falseAV Fistula Upper Arm (Right) Arterial BP Standing (Pre-Dialysis) 172/93 mmHg BP Standing (P ost-Dialysis) 132/70 mmHg Sitting Heart Rate Pre-Dialysis 78 BPM Sitting Heart Rate Post-Dialysis 83 BPM Standing Heart Rate Pre-Dialysis 83 BPM Standing Heart Rate Post-Dialysis 86 BPM Temperature Pre-Dialysis 96.4 degF Temperature Post -Dialysis 98.9 degF April 10, 2023 In-Center Hemodialysis Treatment [id number]:27:00.000Z 0928-52-16Z90:27:47.000Z BP Sitting (Pre-Dialysis) 151/72 mmHg BP Sitting (Post-Dialysis) 159/74 mmHg Concurrent Access: falseAV Fistula Upper Arm (Right) Arterial BP Standing (Pre-Dialysis) 134/74 mmHg BP Standing (P ost-Dialysis) 154/74 mmHg Sitting Heart Rate Pre-Dialysis 88 BPM Sitting Heart Rate Post-Dialysis 71 BPM Standing Heart Rate Pre-Dialysis 91 BPM Standing Heart Rate Post-Dialysis 79 BPM Temperature Pre-Dialysis 98 degF April 08, 2023 In-Center Hemodialysis Treatment 4319-72-70W76:21:46.000Z 7977-55-62D51:06:47.000Z BP Sitting (Pre-Dialysis) 160/82 mmHg BP Sitting (Post-Dialysis) 155/83 mmHg Concurrent Access: falseAV Fistula Upper Arm (Right) Arterial BP Standing (Pre-Dialysis) 160/84 mmHg BP Standing (P ost-Dialysis) 161/82 mmHg Sitting Heart Rate Pre-Dialysis 87 BPM Sitting Heart Rate Post-Dialysis 81 BPM Standing Heart Rate Pre-Dialysis 93 BPM Standing Heart Rate Post-Dialysis 88 BPM Temperature Pre-Dialysis 97.2 degF Temperature Post -Dialysis 98.6 degF April 07, 2023 Additional Day Of Dialysis Treatment [id number]:45:19.000Z 4818-17-88U93:26:20.000Z BP Sitting (Pre-Dialysis) 147/78 mmHg BP Sitting (Post-Dialysis) 158/90 mmHg Concurrent Access: falseAV Fistula Upper Arm (Right) Arterial BP Standing (Pre-Dialysis) 149/83 mmHg BP Standing (P ost-Dialysis) 151/83 mmHg Sitting Heart Rate Pre-Dialysis 90 BPM Sitting Heart Rate Post-Dialysis 78 BPM Standing Heart Rate Pre-Dialysis 87 BPM Standing Heart Rate Post-Dialysis 86 BPM Temperature Pre-Dialysis 98.7 degF Temperature Post -Dialysis 97.3 degF April 01, 2023 In-Center Hemodialysis Treatment 2735-24-98O28:12:00.000Z 0239-79-25B61:22:37.000Z BP Sitting (Pre-Dialysis) 135/78 mmHg BP Sitting (Post-Dialysis) 114/65 mmHg Concurrent Access: falseAV Fistula Upper Arm (Right) Arterial BP Standing (Pre-Dialysis) 133/74 mmHg BP Standing (P ost-Dialysis) 105/57 mmHg Sitting Heart Rate Pre-Dialysis 86 BPM Sitting Heart Rate Post-Dialysis 84 BPM Standing Heart Rate Pre-Dialysis 92 BPM Standing Heart Rate Post-Dialysis 67 BPM Temperature Pre-Dialysis 98.4 degF Temperature Post -Dialysis 98.7 degF March 31, 2023 Additional Day Of Dialysis Treatment 5399-03-77U45:57:56.000Z 8542-30-74O61:28:56.000Z BP Sitting (Pre-Dialysis) 135/80 mmHg BP Sitting (Post-Dialysis) 93/53 mmHg Concurrent Access: falseAV Fistula Upper Arm (Right) Arterial BP Standing (Pre-Dialysis) 127/68 mmHg Sitti ng Heart Rate Post-Dialysis 111 BPM Sitting Heart Rate Pre-Dialysis 81 BPM Temperatu re Post-Dialysis 98.3 degF Standing Heart Rate Pre-Dialysis 83 BPM Temperature Pre-Dialysis 97 degF March 29, 2023 In-Center Hemodialysis Treatment 0328-27-82O25:00:30.000Z 8430-81-94S24:01:30.000Z BP Sitting (Pre-Dialysis) 149/78 mmHg BP Sitting (Post-Dialysis) 130/69 mmHg Concurrent Access: falseAV Fistula Upper Arm (Right) Arterial Sitting Heart Rate Pre-Dialysis 83 BPM BP Standing (Post-Dialysis) 115/61 mmHg Temperature Pre-Dialysis 97.3 degF Sitting Heart Ra te Post-Dialysis 76 BPM Standing Heart Rate Post-Sammi lysis 89 BPM Temperature Post-Dialysis 97 .6 degF March 24, 2023 In-Center Hemodialysis Treatment [id number]:41:32.000Z [id number]:16:33.000Z BP Sitting (Pre-Dialysis) 117/72 mmHg BP Sitting (Post-Dialysis) 121/83 mmHg Concurrent Access: falseAV Fistula Upper Arm (Right) Arterial BP Standing (Pre-Dialysis) 121/63 mmHg BP Standing (P ost-Dialysis) 116/52 mmHg Sitting Heart Rate Pre-Dialysis 85 BPM Sitting Heart Rate Post-Dialysis 80 BPM Standing Heart Rate Pre-Dialysis 88 BPM Standing Heart Rate Post-Dialysis 67 BPM Temperature Pre-Dialysis 97 degF Temperature Post -Dialysis 97.2 degF March 22, 2023 In-Center Hemodialysis Treatment [id number]:24:08.000Z 2351-28-15W02:28:08.000Z BP Sitting (Pre-Dialysis) 146/79 mmHg BP Sitting (Post-Dialysis) 134/74 mmHg Concurrent Access: falseAV Fistula Upper Arm (Right) Arterial BP Standing (Pre-Dialysis) 139/75 mmHg BP Standing (P ost-Dialysis) 135/67 mmHg Sitting Heart Rate Pre-Dialysis 80 BPM Sitting Heart Rate Post-Dialysis 63 BPM Standing Heart Rate Pre-Dialysis 87 BPM Standing Heart Rate Post-Dialysis 80 BPM Temperature Pre-Dialysis 97.4 degF Temperature Post -Dialysis 96.8 degF March 20, 2023 In-Center Hemodialysis Treatment 3650-56-68L80:27:08.000Z 6350-79-02R77:37:08.000Z BP Sitting (Pre-Dialysis) 140/67 mmHg BP Sitting (Post-Dialysis) 131/66 mmHg Concurrent Access: falseAV Fistula Upper Arm (Right) Arterial BP Standing (Pre-Dialysis) 142/80 mmHg BP Standing (P ost-Dialysis) 129/69 mmHg Sitting Heart Rate Pre-Dialysis 77 BPM Sitting Heart Rate Post-Dialysis 69 BPM Standing Heart Rate Pre-Dialysis 80 BPM Standing Heart Rate Post-Dialysis 78 BPM Temperature Pre-Dialysis 97.6 degF Temperature Post -Dialysis 97 degF March 18, 2023 In-Center Hemodialysis Treatment 9928-25-60V16:30:08.000Z 3498-70-07M58:49:08.000Z BP Sitting (Pre-Dialysis) 138/75 mmHg BP Sitting (Post-Dialysis) 140/72 mmHg Concurrent Access: falseAV Fistula Upper Arm (Right) Arterial BP Standing (Pre-Dialysis) 138/74 mmHg BP Standing (P ost-Dialysis) 136/63 mmHg Sitting Heart Rate Pre-Dialysis 68 BPM Sitting Heart Rate Post-Dialysis 65 BPM Standing Heart Rate Pre-Dialysis 75 BPM Standing Heart Rate Post-Dialysis 78 BPM Temperature Pre-Dialysis 98.2 degF Temperature Post -Dialysis 97.2 degF March 15, 2023 In-Center Hemodialysis Treatment 6433-69-81E31:14:01.000Z 3829-23-29V20:15:39.000Z BP Sitting (Pre-Dialysis) 129/66 mmHg BP Sitting (Post-Dialysis) 141/70 mmHg Concurrent Access: falseAV Fistula Upper Arm (Right) Arterial BP Standing (Pre-Dialysis) 142/74 mmHg BP Standing (P ost-Dialysis) 126/67 mmHg Sitting Heart Rate Pre-Dialysis 77 BPM Sitting Heart Rate Post-Dialysis 60 BPM Standing Heart Rate Pre-Dialysis 75 BPM Standing Heart Rate Post-Dialysis 71 BPM Temperature Pre-Dialysis 97.5 degF Temperature Post -Dialysis 97.5 degF March 13, 2023 In-Center Hemodialysis Treatment [id number]:09:00.000Z 7494-29-14N44:27:02.000Z BP Sitting (Pre-Dialysis) 138/72 mmHg BP Sitting (Post-Dialysis) 146/76 mmHg Concurrent Access: falseAV Fistula Upper Arm (Right) Arterial BP Standing (Pre-Dialysis) 138/73 mmHg BP Standing (P ost-Dialysis) 144/70 mmHg Sitting Heart Rate Pre-Dialysis 65 BPM Sitting Heart Rate Post-Dialysis 59 BPM Standing Heart Rate Pre-Dialysis 65 BPM Standing Heart Rate Post-Dialysis 64 BPM Temperature Pre-Dialysis 96.3 degF Temperature Post -Dialysis 98 degF March 11, 2023 In-Center Hemodialysis Treatment [id number]:29:01.000Z 1548-08-60M84:47:02.000Z BP Sitting (Pre-Dialysis) 148/76 mmHg BP Sitting (Post-Dialysis) 152/76 mmHg Concurrent Access: falseAV Fistula Upper Arm (Right) Arterial BP Standing (Pre-Dialysis) 147/75 mmHg BP Standing (P ost-Dialysis) 138/74 mmHg Sitting Heart Rate Pre-Dialysis 64 BPM Sitting Heart Rate Post-Dialysis 61 BPM Standing Heart Rate Pre-Dialysis 66 BPM Standing Heart Rate Post-Dialysis 69 BPM Temperature Pre-Dialysis 97.4 degF Temperature Post -Dialysis 97.7 degF March 08, 2023 In-Center Hemodialysis Treatment [id number]:28:13.000Z [id number]:44:14.000Z BP Sitting (Pre-Dialysis) 171/81 mmHg BP Sitting (Post-Dialysis) 139/75 mmHg Concurrent Access: falseAV Fistula Upper Arm (Right) Arterial BP Standing (Pre-Dialysis) 169/85 mmHg BP Standing (P ost-Dialysis) 142/68 mmHg Sitting Heart Rate Pre-Dialysis 62 BPM Sitting Heart Rate Post-Dialysis 65 BPM Standing Heart Rate Pre-Dialysis 70 BPM Standing Heart Rate Post-Dialysis 73 BPM Temperature Pre-Dialysis 97.6 degF Temperature Post -Dialysis 98 degF March 06, 2023 In-Center Hemodialysis Treatment 5631-91-31D37:27:13.000Z 3679-19-81L23:59:14.000Z BP Sitting (Pre-Dialysis) 142/74 mmHg BP Sitting (Post-Dialysis) 133/76 mmHg Concurrent Access: falseAV Fistula Upper Arm (Right) Arterial BP Standing (Pre-Dialysis) 155/71 mmHg BP Standing (P ost-Dialysis) 135/72 mmHg Sitting Heart Rate Pre-Dialysis 69 BPM Sitting Heart Rate Post-Dialysis 65 BPM Standing Heart Rate Pre-Dialysis 68 BPM Standing Heart Rate Post-Dialysis 71 BPM Temperature Pre-Dialysis 98.7 degF Temperature Post -Dialysis 97.9 degF March 01, 2023 In-Center Hemodialysis Treatment [id number]:11:15.000Z 7866-71-26G99:27:15.000Z BP Sitting (Pre-Dialysis) 151/80 mmHg BP Sitting (Post-Dialysis) 139/63 mmHg Concurrent Access: falseAV Fistula Upper Arm (Right) Arterial BP Standing (Pre-Dialysis) 147/73 mmHg BP Standing (P ost-Dialysis) 129/56 mmHg Sitting Heart Rate Pre-Dialysis 68 BPM Sitting Heart Rate Post-Dialysis 54 BPM Standing Heart Rate Pre-Dialysis 73 BPM Standing Heart Rate Post-Dialysis 57 BPM Temperature Pre-Dialysis 98.1 degF Temperature Post -Dialysis 98.3 degF February 27, 2023 In-Center Hemodialysis Treatment [id number]:17:15.000Z 8805-94-25W66:26:15.000Z BP Sitting (Pre-Dialysis) 159/86 mmHg BP Sitting (Post-Dialysis) 120/68 mmHg Concurrent Access: falseAV Fistula Upper Arm (Right) Arterial BP Standing (Pre-Dialysis) 166/83 mmHg BP Standing (P ost-Dialysis) 109/56 mmHg Sitting Heart Rate Pre-Dialysis 66 BPM Sitting Heart Rate Post-Dialysis 75 BPM Standing Heart Rate Pre-Dialysis 78 BPM Standing Heart Rate Post-Dialysis 81 BPM Temperature Pre-Dialysis 97.8 degF Temperature Post -Dialysis 97.8 degF February 25, 2023 In-Center Hemodialysis Treatment [id number]:16:15.000Z [id number]:33:15.000Z BP Sitting (Pre-Dialysis) 155/77 mmHg BP Sitting (Post-Dialysis) 132/72 mmHg Concurrent Access: falseAV Fistula Upper Arm (Right) Arterial BP Standing (Pre-Dialysis) 134/75 mmHg BP Standing (P ost-Dialysis) 131/70 mmHg Sitting Heart Rate Pre-Dialysis 71 BPM Sitting Heart Rate Post-Dialysis 69 BPM Standing Heart Rate Pre-Dialysis 80 BPM Standing Heart Rate Post-Dialysis 79 BPM Temperature Pre-Dialysis 97.8 degF Temperature Post -Dialysis 97.7 degF February 22, 2023 In-Center Hemodialysis Treatment [id number]:25:00.000Z [id number]:39:18.000Z BP Sitting (Pre-Dialysis) 143/82 mmHg BP Sitting (Post-Dialysis) 131/71 mmHg Concurrent Access: falseAV Fistula Upper Arm (Right) Arterial BP Standing (Pre-Dialysis) 140/78 mmHg BP Standing (P ost-Dialysis) 114/63 mmHg Sitting Heart Rate Pre-Dialysis 71 BPM Sitting Heart Rate Post-Dialysis 66 BPM Standing Heart Rate Pre-Dialysis 78 BPM Standing Heart Rate Post-Dialysis 77 BPM Temperature Pre-Dialysis 97.7 degF Temperature Post -Dialysis 97.6 degF February 20, 2023 In-Center Hemodialysis Treatment [id number]:21:17.000Z 1063-23-36I90:03:17.000Z BP Sitting (Pre-Dialysis) 138/101 mmHg BP Sitting (Post-Dialysis) 125/73 mmHg Concurrent Access: falseAV Fistula Upper Arm (Right) Arterial BP Standing (Pre-Dialysis) 148/82 mmHg BP Standing (P ost-Dialysis) 111/46 mmHg Sitting Heart Rate Pre-Dialysis 79 BPM Sitting Heart Rate Post-Dialysis 71 BPM Standing Heart Rate Pre-Dialysis 79 BPM Standing Heart Rate Post-Dialysis 72 BPM Temperature Pre-Dialysis 97 degF Temperature Post -Dialysis 97 degF February 18, 2023 In-Center Hemodialysis Treatment [id number]:21:15.000Z 2705-02-92U40:36:16.000Z BP Sitting (Pre-Dialysis) 148/78 mmHg BP Sitting (Post-Dialysis) 132/71 mmHg Concurrent Access: falseAV Fistula Upper Arm (Right) Arterial BP Standing (Pre-Dialysis) 141/73 mmHg BP Standing (P ost-Dialysis) 100/53 mmHg Sitting Heart Rate Pre-Dialysis 73 BPM Sitting Heart Rate Post-Dialysis 67 BPM Standing Heart Rate Pre-Dialysis 76 BPM Standing Heart Rate Post-Dialysis 81 BPM Temperature Pre-Dialysis 98 degF Temperature Post -Dialysis 97.2 degF February 15, 2023 In-Center Hemodialysis Treatment [id number]:02:00.000Z 5737-01-28V77:18:21.000Z BP Sitting (Pre-Dialysis) 138/76 mmHg BP Sitting (Post-Dialysis) 122/77 mmHg Concurrent Access: falseAV Fistula Upper Arm (Right) Arterial BP Standing (Pre-Dialysis) 117/68 mmHg BP Standing (P ost-Dialysis) 120/66 mmHg Sitting Heart Rate Pre-Dialysis 71 BPM Sitting Heart Rate Post-Dialysis 70 BPM Standing Heart Rate Pre-Dialysis 86 BPM Standing Heart Rate Post-Dialysis 81 BPM Temperature Pre-Dialysis 98 degF Temperature Post -Dialysis 98.2 degF February 13, 2023 In-Center Hemodialysis Treatment 5710-22-18O94:33:00.000Z 5864-46-80X43:31:20.000Z BP Sitting (Pre-Dialysis) 124/75 mmHg BP Sitting (Post-Dialysis) 133/67 mmHg Concurrent Access: falseAV Fistula Upper Arm (Right) Arterial BP Standing (Pre-Dialysis) 129/75 mmHg BP Standing (P ost-Dialysis) 128/75 mmHg Sitting Heart Rate Pre-Dialysis 80 BPM Sitting Heart Rate Post-Dialysis 80 BPM Standing Heart Rate Pre-Dialysis 80 BPM Standing Heart Rate Post-Dialysis 90 BPM Temperature Pre-Dialysis 97.3 degF Temperature Post -Dialysis 98.2 degF February 11, 2023 In-Center Hemodialysis Treatment [id number]:40:15.000Z [id number]:48:15.000Z BP Sitting (Pre-Dialysis) 131/65 mmHg BP Sitting (Post-Dialysis) 132/69 mmHg Concurrent Access: falseAV Fistula Upper Arm (Right) Arterial BP Standing (Pre-Dialysis) 112/60 mmHg BP Standing (P ost-Dialysis) 124/59 mmHg Sitting Heart Rate Pre-Dialysis 81 BPM Sitting Heart Rate Post-Dialysis 89 BPM Standing Heart Rate Pre-Dialysis 84 BPM Standing Heart Rate Post-Dialysis 91 BPM Temperature Pre-Dialysis 97.4 degF Temperature Post -Dialysis 98.2 degF February 08, 2023 In-Center Hemodialysis Treatment [id number]:31:00.000Z [id number]:45:19.000Z BP Sitting (Pre-Dialysis) 141/81 mmHg BP Sitting (Post-Dialysis) 116/69 mmHg Concurrent Access: falseAV Fistula Upper Arm (Right) Arterial BP Standing (Pre-Dialysis) 138/75 mmHg BP Standing (P ost-Dialysis) 107/58 mmHg Sitting Heart Rate Pre-Dialysis 72 BPM Sitting Heart Rate Post-Dialysis 76 BPM Standing Heart Rate Pre-Dialysis 75 BPM Standing Heart Rate Post-Dialysis 84 BPM Temperature Pre-Dialysis 97.1 degF Temperature Post -Dialysis 97.8 degF February 06, 2023 In-Center Hemodialysis Treatment [id number]:34:19.000Z [id number]:49:19.000Z BP Sitting (Pre-Dialysis) 112/69 mmHg BP Sitting (Post-Dialysis) 124/70 mmHg Concurrent Access: falseAV Fistula Upper Arm (Right) Arterial BP Standing (Pre-Dialysis) 136/72 mmHg BP Standing (P ost-Dialysis) 118/66 mmHg Sitting Heart Rate Pre-Dialysis 84 BPM Sitting Heart Rate Post-Dialysis 65 BPM Standing Heart Rate Pre-Dialysis 78 BPM Standing Heart Rate Post-Dialysis 79 BPM Temperature Pre-Dialysis 97.5 degF Temperature Post -Dialysis 98 degF February 04, 2023 In-Center Hemodialysis Treatment [id number]:39:19.000Z [id number]:56:19.000Z BP Sitting (Pre-Dialysis) 122/69 mmHg BP Sitting (Post-Dialysis) 142/76 mmHg Concurrent Access: falseAV Fistula Upper Arm (Right) Arterial BP Standing (Pre-Dialysis) 119/63 mmHg BP Standing (P ost-Dialysis) 104/62 mmHg Sitting Heart Rate Pre-Dialysis 71 BPM Sitting Heart Rate Post-Dialysis 77 BPM Standing Heart Rate Pre-Dialysis 76 BPM Standing Heart Rate Post-Dialysis 92 BPM Temperature Pre-Dialysis 98.3 degF Temperature Post -Dialysis 98.9 degF February 01, 2023 In-Center Hemodialysis Treatment [id number]:35:00.000Z [id number]:54:11.000Z BP Sitting (Pre-Dialysis) 141/77 mmHg BP Sitting (Post-Dialysis) 130/71 mmHg Concurrent Access: falseAV Fistula Upper Arm (Right) Arterial BP Standing (Pre-Dialysis) 126/72 mmHg BP Standing (P ost-Dialysis) 103/64 mmHg Sitting Heart Rate Pre-Dialysis 78 BPM Sitting Heart Rate Post-Dialysis 76 BPM Standing Heart Rate Pre-Dialysis 89 BPM Standing Heart Rate Post-Dialysis 87 BPM Temperature Pre-Dialysis 98.3 degF Temperature Post -Dialysis 98.2 degF January 30, 2023 In-Center Hemodialysis Treatment [id number]:34:11.000Z [id number]:53:11.000Z BP Sitting (Pre-Dialysis) 144/75 mmHg BP Sitting (Post-Dialysis) 143/75 mmHg Concurrent Access: falseAV Fistula Upper Arm (Right) Arterial BP Standing (Pre-Dialysis) 124/70 mmHg BP Standing (P ost-Dialysis) 119/66 mmHg Sitting Heart Rate Pre-Dialysis 85 BPM Sitting Heart Rate Post-Dialysis 80 BPM Standing Heart Rate Pre-Dialysis 86 BPM Standing Heart Rate Post-Dialysis 96 BPM Temperature Pre-Dialysis 97.5 degF Temperature Post -Dialysis 97.5 degF January 27, 2023 In-Center Hemodialysis Treatment [id number]:22:27.000Z [id number]:15:28.000Z BP Sitting (Pre-Dialysis) 135/65 mmHg BP Sitting (Post-Dialysis) 144/77 mmHg Concurrent Access: falseAV Fistula Upper Arm (Right) Arterial BP Standing (Pre-Dialysis) 124/70 mmHg BP Standing (P ost-Dialysis) 139/77 mmHg Sitting Heart Rate Pre-Dialysis 64 BPM Sitting Heart Rate Post-Dialysis 71 BPM Standing Heart Rate Pre-Dialysis 73 BPM Standing Heart Rate Post-Dialysis 81 BPM Temperature Pre-Dialysis 98 degF Temperature Post -Dialysis 98 degF January 23, 2023 In-Center Hemodialysis Treatment [id number]:15:58.000Z [id number]:10:58.000Z BP Sitting (Pre-Dialysis) 137/72 mmHg BP Sitting (Post-Dialysis) 130/70 mmHg Concurrent Access: falseAV Fistula Upper Arm (Right) Arterial BP Standing (Pre-Dialysis) 146/69 mmHg BP Standing (P ost-Dialysis) 112/62 mmHg Sitting Heart Rate Pre-Dialysis 80 BPM Sitting Heart Rate Post-Dialysis 72 BPM Standing Heart Rate Pre-Dialysis 81 BPM Standing Heart Rate Post-Dialysis 85 BPM Temperature Pre-Dialysis 98.1 degF Temperature Post -Dialysis 97.4 degF January 21, 2023 In-Center Hemodialysis Treatment [id number]:23:55.000Z [id number]:37:54.000Z BP Sitting (Pre-Dialysis) 147/72 mmHg BP Sitting (Post-Dialysis) 135/68 mmHg Concurrent Access: falseAV Fistula Upper Arm (Right) Arterial BP Standing (Pre-Dialysis) 130/70 mmHg BP Standing (P ost-Dialysis) 131/70 mmHg Sitting Heart Rate Pre-Dialysis 76 BPM Sitting Heart Rate Post-Dialysis 72 BPM Standing Heart Rate Pre-Dialysis 78 BPM Standing Heart Rate Post-Dialysis 82 BPM Temperature Pre-Dialysis 97.3 degF Temperature Post -Dialysis 97.2 degF January 18, 2023 In-Center Hemodialysis Treatment [id number]:14:12.000Z [id number]:27:12.000Z BP Sitting (Pre-Dialysis) 135/74 mmHg BP Sitting (Post-Dialysis) 132/70 mmHg Concurrent Access: falseAV Fistula Upper Arm (Right) Arterial BP Standing (Pre-Dialysis) 134/72 mmHg BP Standing (P ost-Dialysis) 129/62 mmHg Sitting Heart Rate Pre-Dialysis 74 BPM Sitting Heart Rate Post-Dialysis 68 BPM Standing Heart Rate Pre-Dialysis 77 BPM Standing Heart Rate Post-Dialysis 78 BPM Temperature Pre-Dialysis 97.5 degF Temperature Post -Dialysis 97.5 degF January 16, 2023 In-Center Hemodialysis Treatment [id number]:33:12.000Z [id number]:49:12.000Z BP Sitting (Pre-Dialysis) 160/91 mmHg BP Sitting (Post-Dialysis) 158/83 mmHg Concurrent Access: falseAV Fistula Upper Arm (Right) Arterial BP Standing (Pre-Dialysis) 167/91 mmHg BP Standing (P ost-Dialysis) 126/84 mmHg Sitting Heart Rate Pre-Dialysis 71 BPM Sitting Heart Rate Post-Dialysis 73 BPM Standing Heart Rate Pre-Dialysis 66 BPM Standing Heart Rate Post-Dialysis 87 BPM Temperature Pre-Dialysis 98 degF Temperature Post -Dialysis 98.3 degF January 14, 2023 In-Center Hemodialysis Treatment [id number]:25:12.000Z [id number]:28:12.000Z BP Sitting (Pre-Dialysis) 148/82 mmHg BP Sitting (Post-Dialysis) 145/70 mmHg Concurrent Access: falseAV Fistula Upper Arm (Right) Arterial BP Standing (Pre-Dialysis) 126/79 mmHg BP Standing (P ost-Dialysis) 123/77 mmHg Sitting Heart Rate Pre-Dialysis 87 BPM Sitting Heart Rate Post-Dialysis 84 BPM Standing Heart Rate Pre-Dialysis 84 BPM Standing Heart Rate Post-Dialysis 88 BPM Temperature Pre-Dialysis 97.5 degF Temperature Post -Dialysis 97.6 degF January 11, 2023 In-Center Hemodialysis Treatment [id number]:36:00.000Z [id number]:53:32.000Z BP Sitting (Pre-Dialysis) 158/85 mmHg BP Sitting (Post-Dialysis) 130/78 mmHg Concurrent Access: falseAV Fistula Upper Arm (Right) Arterial BP Standing (Pre-Dialysis) 141/85 mmHg BP Standing (P ost-Dialysis) 100/73 mmHg Sitting Heart Rate Pre-Dialysis 88 BPM Sitting Heart Rate Post-Dialysis 80 BPM Standing Heart Rate Pre-Dialysis 96 BPM Standing Heart Rate Post-Dialysis 94 BPM Temperature Pre-Dialysis 98.5 degF Temperature Post -Dialysis 97.6 degF January 09, 2023 In-Center Hemodialysis Treatment [id number]:21:32.000Z 4865-59-09N01:38:32.000Z BP Sitting (Pre-Dialysis) 140/77 mmHg BP Sitting (Post-Dialysis) 157/79 mmHg Concurrent Access: falseAV Fistula Upper Arm (Right) Arterial BP Standing (Pre-Dialysis) 143/79 mmHg Sitti ng Heart Rate Post-Dialysis 72 BPM Sitting Heart Rate Pre-Dialysis 81 BPM Temperatu re Post-Dialysis 98.7 degF Standing Heart Rate Pre-Dialysis 76 BPM Temperature Pre-Dialysis 98.5 degF January 07, 2023 In-Center Hemodialysis Treatment [id number]:32:32.000Z 6437-88-06C11:45:33.000Z BP Sitting (Pre-Dialysis) 140/72 mmHg BP Sitting (Post-Dialysis) 143/82 mmHg Concurrent Access: falseAV Fistula Upper Arm (Right) Arterial BP Standing (Pre-Dialysis) 147/77 mmHg BP Standing (P ost-Dialysis) 150/78 mmHg Sitting Heart Rate Pre-Dialysis 78 BPM Sitting Heart Rate Post-Dialysis 68 BPM Standing Heart Rate Pre-Dialysis 79 BPM Standing Heart Rate Post-Dialysis 76 BPM Temperature Pre-Dialysis 98.6 degF Temperature Post -Dialysis 98.8 degF January 04, 2023 In-Center Hemodialysis Treatment [id number]:30:04.000Z [id number]:45:04.000Z BP Sitting (Pre-Dialysis) 143/86 mmHg BP Sitting (Post-Dialysis) 101/54 mmHg Concurrent Access: falseAV Fistula Upper Arm (Right) Arterial BP Standing (Pre-Dialysis) 138/77 mmHg Sitti ng Heart Rate Post-Dialysis 82 BPM Sitting Heart Rate Pre-Dialysis 80 BPM Temperatu re Post-Dialysis 98.1 degF Standing Heart Rate Pre-Dialysis 86 BPM Temperature Pre-Dialysis 97.2 degF January 02, 2023 In-Center Hemodialysis Treatment 4826-07-05J36:29:08.000Z 0394-87-78R36:45:07.000Z BP Sitting (Pre-Dialysis) 165/84 mmHg BP Sitting (Post-Dialysis) 110/66 mmHg Concurrent Access: falseAV Fistula Upper Arm (Right) Arterial BP Standing (Pre-Dialysis) 160/83 mmHg BP Standing (P ost-Dialysis) 128/70 mmHg Sitting Heart Rate Pre-Dialysis 86 BPM Sitting Heart Rate Post-Dialysis 78 BPM Standing Heart Rate Pre-Dialysis 88 BPM Standing Heart Rate Post-Dialysis 81 BPM Temperature Pre-Dialysis 97.2 degF Temperature Post -Dialysis 98.7 degF December 31, 2022 In-Center Hemodialysis Treatment 6637-54-70U64:27:00.000Z 6007-08-79Y89:43:04.000Z BP Sitting (Pre-Dialysis) 152/75 mmHg BP Sitting (Post-Dialysis) 154/70 mmHg Concurrent Access: falseAV Fistula Upper Arm (Right) Arterial BP Standing (Pre-Dialysis) 158/76 mmHg BP Standing (P ost-Dialysis) 143/78 mmHg Sitting Heart Rate Pre-Dialysis 72 BPM Sitting Heart Rate Post-Dialysis 71 BPM Standing Heart Rate Pre-Dialysis 67 BPM Standing Heart Rate Post-Dialysis 78 BPM Temperature Pre-Dialysis 98 degF Temperature Post -Dialysis 98.7 degF December 28, 2022 In-Center Hemodialysis Treatment [id number]:23:00.000Z [id number]:40:31.000Z BP Sitting (Pre-Dialysis) 170/61 mmHg BP Sitting (Post-Dialysis) 165/76 mmHg Concurrent Access: falseAV Fistula Upper Arm (Right) Arterial BP Standing (Pre-Dialysis) 189/93 mmHg Sitti ng Heart Rate Post-Dialysis 69 BPM Sitting Heart Rate Pre-Dialysis 70 BPM Temperatu re Post-Dialysis 98.2 degF Standing Heart Rate Pre-Dialysis 66 BPM Temperature Pre-Dialysis 97.6 degF December 26, 2022 In-Center Hemodialysis Treatment [id number]:21:31.000Z [id number]:37:31.000Z BP Sitting (Pre-Dialysis) 150/79 mmHg BP Sitting (Post-Dialysis) 131/75 mmHg Concurrent Access: falseAV Fistula Upper Arm (Right) Arterial BP Standing (Pre-Dialysis) 137/76 mmHg BP Standing (P ost-Dialysis) 121/60 mmHg Sitting Heart Rate Pre-Dialysis 88 BPM Sitting Heart Rate Post-Dialysis 85 BPM Standing Heart Rate Pre-Dialysis 88 BPM Standing Heart Rate Post-Dialysis 85 BPM Temperature Pre-Dialysis 97 degF Temperature Post -Dialysis 97.5 degF December 24, 2022 In-Center Hemodialysis Treatment [id number]:25:32.000Z [id number]:40:31.000Z BP Sitting (Pre-Dialysis) 159/78 mmHg BP Sitting (Post-Dialysis) 149/70 mmHg Concurrent Access: falseAV Fistula Upper Arm (Right) Arterial BP Standing (Pre-Dialysis) 155/82 mmHg BP Standing (P ost-Dialysis) 150/84 mmHg Sitting Heart Rate Pre-Dialysis 73 BPM Sitting Heart Rate Post-Dialysis 74 BPM Standing Heart Rate Pre-Dialysis 80 BPM Standing Heart Rate Post-Dialysis 71 BPM Temperature Pre-Dialysis 98.7 degF Temperature Post -Dialysis 98.4 degF December 21, 2022 In-Center Hemodialysis Treatment [id number]:16:59.000Z [id number]:35:00.000Z BP Sitting (Pre-Dialysis) 141/75 mmHg BP Sitting (Post-Dialysis) 149/59 mmHg Concurrent Access: falseAV Fistula Upper Arm (Right) Arterial BP Standing (Pre-Dialysis) 130/73 mmHg BP Standing (P ost-Dialysis) 137/77 mmHg Sitting Heart Rate Pre-Dialysis 71 BPM Sitting Heart Rate Post-Dialysis 71 BPM Standing Heart Rate Pre-Dialysis 81 BPM Standing Heart Rate Post-Dialysis 91 BPM Temperature Pre-Dialysis 98.3 degF Temperature Post -Dialysis 97.8 degF December 19, 2022 In-Center Hemodialysis Treatment [id number]:56:14.000Z [id number]:12:14.000Z BP Sitting (Pre-Dialysis) 146/78 mmHg BP Sitting (Post-Dialysis) 147/71 mmHg Concurrent Access: falseAV Fistula Upper Arm (Right) Arterial BP Standing (Pre-Dialysis) 135/73 mmHg BP Standing (P ost-Dialysis) 130/66 mmHg Sitting Heart Rate Pre-Dialysis 75 BPM Sitting Heart Rate Post-Dialysis 73 BPM Standing Heart Rate Pre-Dialysis 80 BPM Standing Heart Rate Post-Dialysis 89 BPM Temperature Pre-Dialysis 98.7 degF Temperature Post -Dialysis 98.4 degF December 17, 2022 In-Center Hemodialysis Treatment [id number]:25:45.000Z 1577-79-82S22:33:45.000Z BP Sitting (Pre-Dialysis) 148/74 mmHg BP Sitting (Post-Dialysis) 145/79 mmHg Concurrent Access: falseAV Fistula Upper Arm (Right) Arterial BP Standing (Pre-Dialysis) 149/79 mmHg BP Standing (P ost-Dialysis) 146/76 mmHg Sitting Heart Rate Pre-Dialysis 77 BPM Sitting Heart Rate Post-Dialysis 65 BPM Standing Heart Rate Pre-Dialysis 81 BPM Standing Heart Rate Post-Dialysis 82 BPM Temperature Pre-Dialysis 98.7 degF Temperature Post -Dialysis 98.4 degF December 14, 2022 In-Center Hemodialysis Treatment [id number]:31:00.000Z [id number]:47:58.000Z BP Sitting (Pre-Dialysis) 134/71 mmHg BP Sitting (Post-Dialysis) 151/74 mmHg Concurrent Access: falseAV Fistula Upper Arm (Right) Arterial BP Standing (Pre-Dialysis) 134/72 mmHg BP Standing (P ost-Dialysis) 137/73 mmHg Sitting Heart Rate Pre-Dialysis 83 BPM Sitting Heart Rate Post-Dialysis 76 BPM Standing Heart Rate Pre-Dialysis 82 BPM Standing Heart Rate Post-Dialysis 84 BPM Temperature Pre-Dialysis 97.8 degF Temperature Post -Dialysis 97.2 degF December 12, 2022 In-Center Hemodialysis Treatment [id number]:17:38.000Z 4714-04-67W51:33:38.000Z BP Sitting (Pre-Dialysis) 135/76 mmHg BP Sitting (Post-Dialysis) 146/74 mmHg Concurrent Access: falseAV Fistula Upper Arm (Right) Arterial BP Standing (Pre-Dialysis) 136/71 mmHg BP Standing (P ost-Dialysis) 128/72 mmHg Sitting Heart Rate Pre-Dialysis 85 BPM Sitting Heart Rate Post-Dialysis 72 BPM Standing Heart Rate Pre-Dialysis 86 BPM Standing Heart Rate Post-Dialysis 82 BPM Temperature Pre-Dialysis 97.5 degF Temperature Post -Dialysis 97.5 degF December 10, 2022 In-Center Hemodialysis Treatment [id number]:13:38.000Z 0705-47-42A47:30:38.000Z BP Sitting (Pre-Dialysis) 152/78 mmHg BP Sitting (Post-Dialysis) 134/66 mmHg Concurrent Access: falseAV Fistula Upper Arm (Right) Arterial BP Standing (Pre-Dialysis) 144/80 mmHg BP Standing (P ost-Dialysis) 122/71 mmHg Sitting Heart Rate Pre-Dialysis 80 BPM Sitting Heart Rate Post-Dialysis 80 BPM Standing Heart Rate Pre-Dialysis 89 BPM Standing Heart Rate Post-Dialysis 93 BPM Temperature Pre-Dialysis 98.6 degF Temperature Post -Dialysis 98.8 degF December 07, 2022 In-Center Hemodialysis Treatment 0699-21-06Y34:17:11.000Z 7930-54-51Q71:35:11.000Z BP Sitting (Pre-Dialysis) 156/78 mmHg BP Sitting (Post-Dialysis) 132/67 mmHg Concurrent Access: falseAV Fistula Upper Arm (Right) Arterial BP Standing (Pre-Dialysis) 132/73 mmHg BP Standing (P ost-Dialysis) 124/67 mmHg Sitting Heart Rate Pre-Dialysis 79 BPM Sitting Heart Rate Post-Dialysis 79 BPM Standing Heart Rate Pre-Dialysis 88 BPM Standing Heart Rate Post-Dialysis 85 BPM Temperature Pre-Dialysis 97.4 degF Temperature Post -Dialysis 97.2 degF December 05, 2022 In-Center Hemodialysis Treatment [id number]:12:00.000Z 6985-92-14H27:27:11.000Z BP Sitting (Pre-Dialysis) 142/76 mmHg BP Sitting (Post-Dialysis) 137/70 mmHg Concurrent Access: falseAV Fistula Upper Arm (Right) Arterial BP Standing (Pre-Dialysis) 134/72 mmHg BP Standing (P ost-Dialysis) 144/73 mmHg Sitting Heart Rate Pre-Dialysis 78 BPM Sitting Heart Rate Post-Dialysis 70 BPM Standing Heart Rate Pre-Dialysis 81 BPM Standing Heart Rate Post-Dialysis 86 BPM Temperature Pre-Dialysis 97.9 degF Temperature Post -Dialysis 98.2 degF December 03, 2022 In-Center Hemodialysis Treatment 8739-62-11D19:39:10.000Z 4633-03-59Z40:51:11.000Z BP Sitting (Pre-Dialysis) 152/77 mmHg BP Sitting (Post-Dialysis) 142/73 mmHg Concurrent Access: falseAV Fistula Upper Arm (Right) Arterial BP Standing (Pre-Dialysis) 148/78 mmHg BP Standing (P ost-Dialysis) 132/69 mmHg Sitting Heart Rate Pre-Dialysis 78 BPM Sitting Heart Rate Post-Dialysis 68 BPM Standing Heart Rate Pre-Dialysis 92 BPM Standing Heart Rate Post-Dialysis 81 BPM Temperature Pre-Dialysis 98.3 degF Temperature Post -Dialysis 97.5 degF November 30, 2022 In-Center Hemodialysis Treatment [id number]:15:34.000Z 0921-12-96O29:30:34.000Z BP Sitting (Pre-Dialysis) 133/68 mmHg BP Sitting (Post-Dialysis) 139/64 mmHg Concurrent Access: falseAV Fistula Upper Arm (Right) Arterial BP Standing (Pre-Dialysis) 135/68 mmHg BP Standing (P ost-Dialysis) 126/67 mmHg Sitting Heart Rate Pre-Dialysis 81 BPM Sitting Heart Rate Post-Dialysis 71 BPM Standing Heart Rate Pre-Dialysis 82 BPM Standing Heart Rate Post-Dialysis 89 BPM Temperature Pre-Dialysis 97.4 degF Temperature Post -Dialysis 98.7 degF November 28, 2022 In-Center Hemodialysis Treatment [id number]:10:00.000Z 4975-25-18H60:29:00.000Z BP Sitting (Pre-Dialysis) 131/70 mmHg BP Sitting (Post-Dialysis) 124/76 mmHg Concurrent Access: falseAV Fistula Upper Arm (Right) Arterial BP Standing (Pre-Dialysis) 149/76 mmHg BP Standing (P ost-Dialysis) 137/72 mmHg Sitting Heart Rate Pre-Dialysis 95 BPM Sitting Heart Rate Post-Dialysis 88 BPM Standing Heart Rate Pre-Dialysis 92 BPM Standing Heart Rate Post-Dialysis 92 BPM Temperature Pre-Dialysis 97.5 degF Temperature Post -Dialysis 98.7 degF November 26, 2022 In-Center Hemodialysis Treatment [id number]:13:34.000Z 5066-75-91X88:29:34.000Z BP Sitting (Pre-Dialysis) 158/84 mmHg BP Sitting (Post-Dialysis) 159/87 mmHg Concurrent Access: falseAV Fistula Upper Arm (Right) Arterial BP Standing (Pre-Dialysis) 147/78 mmHg BP Standing (P ost-Dialysis) 133/72 mmHg Sitting Heart Rate Pre-Dialysis 86 BPM Sitting Heart Rate Post-Dialysis 81 BPM Standing Heart Rate Pre-Dialysis 90 BPM Standing Heart Rate Post-Dialysis 89 BPM Temperature Pre-Dialysis 98.2 degF Temperature Post -Dialysis 98.7 degF November 23, 2022 In-Center Hemodialysis Treatment [id number]:26:58.000Z [id number]:24:58.000Z BP Sitting (Pre-Dialysis) 132/65 mmHg BP Sitting (Post-Dialysis) 131/74 mmHg Concurrent Access: falseAV Fistula Upper Arm (Right) Arterial BP Standing (Pre-Dialysis) 129/67 mmHg BP Standing (P ost-Dialysis) 127/64 mmHg Sitting Heart Rate Pre-Dialysis 82 BPM Sitting Heart Rate Post-Dialysis 73 BPM Standing Heart Rate Pre-Dialysis 84 BPM Standing Heart Rate Post-Dialysis 78 BPM Temperature Pre-Dialysis 97.5 degF Temperature Post -Dialysis 97.3 degF November 21, 2022 In-Center Hemodialysis Treatment 1326-58-58T04:19:00.000Z [id number]:34:51.000Z BP Sitting (Pre-Dialysis) 135/70 mmHg BP Sitting (Post-Dialysis) 132/73 mmHg Concurrent Access: falseAV Fistula Upper Arm (Right) Arterial Sitting Heart Rate Pre-Dialysis 83 BPM BP Standing (Post-Dialysis) 138/60 mmHg Temperature Pre-Dialysis 97.2 degF Sitting Heart Ra te Post-Dialysis 77 BPM Standing Heart Rate Post-Sammi lysis 85 BPM Temperature Post-Dialysis 98 .4 degF November 19, 2022 In-Center Hemodialysis Treatment [id number]:28:00.000Z 3745-49-08E78:47:58.000Z BP Sitting (Pre-Dialysis) 157/87 mmHg BP Sitting (Post-Dialysis) 150/65 mmHg Concurrent Access: falseAV Fistula Upper Arm (Right) Arterial Sitting Heart Rate Pre-Dialysis 76 BPM BP Standing (Post-Dialysis) 136/66 mmHg Temperature Pre-Dialysis 98.6 degF Sitting Heart Ra te Post-Dialysis 69 BPM Standing Heart Rate Post-Sammi lysis 78 BPM Temperature Post-Dialysis 98 .2 degF November 16, 2022 In-Center Hemodialysis Treatment [id number]:30:54.000Z 0927-09-67J18:49:54.000Z BP Sitting (Pre-Dialysis) 132/76 mmHg BP Sitting (Post-Dialysis) 157/69 mmHg Concurrent Access: falseAV Fistula Upper Arm (Right) Arterial BP Standing (Pre-Dialysis) 156/81 mmHg BP Standing (P ost-Dialysis) 143/75 mmHg Sitting Heart Rate Pre-Dialysis 92 BPM Sitting Heart Rate Post-Dialysis 81 BPM Standing Heart Rate Pre-Dialysis 86 BPM Standing Heart Rate Post-Dialysis 91 BPM Temperature Pre-Dialysis 97.2 degF Temperature Post -Dialysis 97.2 degF November 14, 2022 In-Center Hemodialysis Treatment [id number]:16:52.000Z 7736-98-54U02:04:52.000Z BP Sitting (Pre-Dialysis) 141/76 mmHg BP Sitting (Post-Dialysis) 157/85 mmHg Concurrent Access: falseAV Fistula Upper Arm (Right) Arterial BP Standing (Pre-Dialysis) 151/78 mmHg BP Standing (P ost-Dialysis) 138/76 mmHg Sitting Heart Rate Pre-Dialysis 80 BPM Sitting Heart Rate Post-Dialysis 69 BPM Standing Heart Rate Pre-Dialysis 88 BPM Standing Heart Rate Post-Dialysis 83 BPM Temperature Pre-Dialysis 97.5 degF Temperature Post -Dialysis 98.3 degF November 12, 2022 In-Center Hemodialysis Treatment 8220-83-57G63:12:00.000Z 9512-97-65T69:28:54.000Z BP Sitting (Pre-Dialysis) 144/75 mmHg BP Sitting (Post-Dialysis) 149/80 mmHg Concurrent Access: falseAV Fistula Upper Arm (Right) Arterial BP Standing (Pre-Dialysis) 148/77 mmHg BP Standing (P ost-Dialysis) 150/69 mmHg Sitting Heart Rate Pre-Dialysis 83 BPM Sitting Heart Rate Post-Dialysis 75 BPM Standing Heart Rate Pre-Dialysis 80 BPM Standing Heart Rate Post-Dialysis 82 BPM Temperature Pre-Dialysis 98.2 degF Temperature Post -Dialysis 97.8 degF November 09, 2022 In-Center Hemodialysis Treatment 8054-66-62Y43:21:00.000Z 7554-95-13P72:21:25.000Z BP Sitting (Pre-Dialysis) 143/70 mmHg BP Sitting (Post-Dialysis) 149/74 mmHg Concurrent Access: falseAV Fistula Upper Arm (Right) Arterial BP Standing (Pre-Dialysis) 138/66 mmHg Sitting Heart Rate Post-Dialysis 72 BPM Sitting Heart Rate Pre-Dialysis 75 BPM Standing Heart Rate Pre-Dialysis 83 BPM Temperature Pre-Dialysis 97.4 degF November 07, 2022 In-Center Hemodialysis Treatment 8323-27-28S14:33:25.000Z 2782-57-48X98:50:25.000Z BP Sitting (Pre-Dialysis) 142/75 mmHg BP Sitting (Post-Dialysis) 135/75 mmHg Concurrent Access: falseAV Fistula Upper Arm (Right) Arterial BP Standing (Pre-Dialysis) 132/70 mmHg Sitting Heart Rate Post-Dialysis 76 BPM Sitting Heart Rate Pre-Dialysis 76 BPM Temperatu re Post-Dialysis 98 degF Standing Heart Rate Pre-Dialysis 80 BPM Temperature Pre-Dialysis 97.6 degF November 05, 2022 In-Center Hemodialysis Treatment [id number]:24:00.000Z 0822-92-64V05:41:25.000Z BP Sitting (Pre-Dialysis) 159/75 mmHg BP Sitting (Post-Dialysis) 157/80 mmHg Concurrent Access: falseAV Fistula Upper Arm (Right) Arterial BP Standing (Pre-Dialysis) 151/77 mmHg BP Standing (P ost-Dialysis) 135/73 mmHg Sitting Heart Rate Pre-Dialysis 82 BPM Sitting Heart Rate Post-Dialysis 71 BPM Standing Heart Rate Pre-Dialysis 88 BPM Standing Heart Rate Post-Dialysis 88 BPM Temperature Pre-Dialysis 97.8 degF Temperature Post -Dialysis 98.3 degF November 02, 2022 In-Center Hemodialysis Treatment 6715-36-93S01:13:00.000Z 9294-07-49Y95:05:25.000Z BP Sitting (Pre-Dialysis) 154/72 mmHg BP Sitting (Post-Dialysis) 153/80 mmHg Concurrent Access: falseAV Fistula Upper Arm (Right) Arterial BP Standing (Pre-Dialysis) 154/72 mmHg BP Standing (P ost-Dialysis) 146/68 mmHg Sitting Heart Rate Pre-Dialysis 89 BPM Sitting Heart Rate Post-Dialysis 70 BPM Standing Heart Rate Pre-Dialysis 88 BPM Standing Heart Rate Post-Dialysis 84 BPM Temperature Pre-Dialysis 96.5 degF Temperature Post -Dialysis 97.4 degF October 31, 2022 In-Center Hemodialysis Treatment 6865-25-09K97:07:00.000Z 5622-41-21K95:27:25.000Z BP Sitting (Pre-Dialysis) 158/85 mmHg BP Sitting (Post-Dialysis) 145/76 mmHg Concurrent Access: falseAV Fistula Upper Arm (Right) Arterial BP Standing (Pre-Dialysis) 149/81 mmHg BP Standing (P ost-Dialysis) 128/71 mmHg Sitting Heart Rate Pre-Dialysis 82 BPM Sitting Heart Rate Post-Dialysis 71 BPM Standing Heart Rate Pre-Dialysis 86 BPM Standing Heart Rate Post-Dialysis 83 BPM Temperature Pre-Dialysis 98.2 degF Temperature Post -Dialysis 97.9 degF October 29, 2022 In-Center Hemodialysis Treatment [id number]:22:00.000Z [id number]:41:25.000Z BP Sitting (Pre-Dialysis) 137/72 mmHg BP Sitting (Post-Dialysis) 143/76 mmHg Concurrent Access: falseAV Fistula Upper Arm (Right) Arterial BP Standing (Pre-Dialysis) 132/66 mmHg BP Standing (P ost-Dialysis) 147/74 mmHg Sitting Heart Rate Pre-Dialysis 77 BPM Sitting Heart Rate Post-Dialysis 80 BPM Standing Heart Rate Pre-Dialysis 83 BPM Standing Heart Rate Post-Dialysis 88 BPM Temperature Pre-Dialysis 98.7 degF Temperature Post -Dialysis 98.2 degF Results Adequacy Description Draw Date Result/Unit Status Ref Range Result Comments Creatinine [Mass/volume] in Serum or Plasma 2025-02-16 00:30:16 6.82 mg/dL F 0.7-1.3 URR% 2025-02-02 02:26:20 80 % F DIALYZER FLOW-QD 2025-02-02 02:26:20 500 mL/min F Dialyzer KUSUM 2025-02-02 02:26:20 1455 Calc F WEIGHT (KG) 2025-02-02 02:26:20 73 kg F Residual kt/v 2025-02-02 02:26:20 F VT (KT/V TX VOL) 2025-02-02 02:26:20 32.2 L F AMPUTATE FACTOR 2025-02-02 02:26:20 0 F spKt/V 2025-02-02 02:26:20 1.95 F stdKT/V Total 2025-02-02 02:26:20 N/A F TOTAL HOURS/WEEK DIALYSIS 2025-02-02 02:26:20 12 hrs F CURRENT KRU 2025-02-02 02:26:20 F LENGTH OF DIALYSIS 2025-02-02 02:26:20 240 min F PATIENT AGE 2025-02-02 02:26:20 69 Years F BSA SARAH 2025-02-02 02:26:20 1.87 sq m F WEIGHT - POST DAY 1 2025-02-02 02:26:20 74.2 kg F WEIGHT - PRE DAY 1 2025-02-02 02:26:20 77.3 kg F HEIGHT IN INCHES 2025-02-02 02:26:20 69 Inches F PRESCRIBED DAYS/WEEK 2025-02-02 02:26:20 3 Day/Wk F VM (KT/V MEAN VOL) 2025-02-02 02:26:20 35.9 F Total Kt/V 2025-02-02 02:26:20 1.95 F KT/V PRESCRIBED 2025-02-02 02:26:20 1.91 F nPCR 2025-02-02 02:26:20 1.35 G/KG/D F TBW ([facility]) 2025-02-02 02:26:20 39.42 Liters F eKt/V 2025-02-02 02:26:20 1.66 F stdKt/V (DIAL) 2025-02-02 02:26:20 N/A F Std Renal KT/V 2025-02-02 02:26:20 N/A F BLOOD FLOW-QWB 2025-02-02 02:26:20 350 F Urea nitrogen [Mass/volume] in Serum or Plasma 2025-02-02 02:24:14 81 mg/dL F 9.0-23.0 Urea nitrogen [Mass/volume] in Serum or Plasma --post dialysis 2025-02-02 02:05:20 16 mg/dL F 9.0-23.0 Anemia Description Draw Date Result/Unit Status Ref Range Result Comments IRON SATURATION 2025-02-16 08:06:46 32 % F 21.0-49.0 TIBC 2025-02-16 08:06:46 204 ug/dL F 250.0-425.0 Iron [Mass/volume] in Serum or Plasma 2025-02-16 07:21:29 65 ug/dL F 65.0-175.0 Iron binding capacity.unsaturated [Mass/volume] in Serum or Plasma 2025-02-16 07:21:29 139 ug/dL F 75.0-360.0 Ferritin [Mass/volume] in Serum or Plasma 2025-02-16 05:10:15 847 ng/mL F 11.0-307.0 HCT CALC HGBX3 2025-02-16 03:54:03 36 % F 42.0-52.0 Erythrocyte distribution width [Ratio] by Automated count 2025-02-16 03:53:16 16.1 % F 11.0-15.0 MCHC [Mass/volume] by Automated count 2025-02-16 03:53:16 33.7 g/dL F 29.6-35.3 Platelets [#/volume] in Blood by Automated count 2025-02-16 03:53:16 241 x 10^3 cells/uL F 140.0-450.0 Reticulocytes/100 erythrocytes in Blood by Automated count 2025-02-16 03:53:16 4.57 % F 0.7-2.5 Hemoglobin [Mass/volume] in Blood 2025-02-16 03:53:13 12 g/dL F 14.0-18.0 Erythrocytes [#/volume] in Blood by Automated count 2025-02-16 03:53:13 3.46 x 10^6 cells/uL F 4.6-6.2 MCH [Entitic mass] by Automated count 2025-02-16 03:53:13 34.8 pg F 25.9-34.2 MCV [Entitic volume] by Automated count 2025-02-16 03:53:13 103.3 fL F 80.0-100.0 Hematocrit [Volume Fraction] of Blood by Automated count 2025-02-16 03:53:13 35.7 % F 41.0-53.0 ABSOLUTE RETIC COUNT 2025-02-16 03:53:13 0.158 x 10^6 cells/uL F 0.035-0.127 HCT CALC HGBX3 2025-02-02 15:45:08 34.2 % F 42.0-52.0 Hemoglobin [Mass/volume] in Blood 2025-02-02 15:44:11 11.4 g/dL F 14.0-18.0 FluidBP Description Draw Date Result/Unit Status Ref Range Result Comments Sodium [Moles/volume] in Serum or Plasma 2025-02-16 07:21:29 138 mEq/L F 136.0-145.0 General Description Draw Date Result/Unit Status Ref Range Result Comments Chloride [Moles/volume] in Serum or Plasma 2025-02-16 07:21:29 94 mEq/L F 98.0-107.0 Alanine aminotransferase [Enzymatic activity/volume] in Serum or Plasma 2025-02-16 00:30:16 16 U/L F 10.0-49.0 Aspartate aminotransferase [Enzymatic activity/volume] in Serum or Plasma 2025-02-16 00:30:16 16 U/L F 0.0-33.0 InfectionVaccination Description Draw Date Result/Unit Status Ref Range Result Comments Basophils/100 leukocytes in Blood by Automated count 2025-02-16 03:53:16 0.8 % F Monocytes/100 leukocytes in Blood by Automated count 2025-02-16 03:53:16 7.4 % F Eosinophils/100 leukocytes in Blood by Automated count 2025-02-16 03:53:16 2.4 % F Eosinophils [#/volume] in Blood by Automated count 2025-02-16 03:53:16 89 Cells/uL F 0.0-700.0 Neutrophils/100 leukocytes in Blood by Automated count 2025-02-16 03:53:16 59.6 % F Neutrophils [#/volume] in Blood by Automated count 2025-02-16 03:53:16 2199 Cells/uL F 2000.0-8800.0 Monocytes [#/volume] in Blood by Automated count 2025-02-16 03:53:16 273 Cells/uL F 0.0-1100.0 Basophils [#/volume] in Blood by Automated count 2025-02-16 03:53:16 30 Cells/uL F 0.0-400.0 Lymphocytes/100 leukocytes in Blood by Automated count 2025-02-16 03:53:13 29.8 % F Leukocytes [#/volume] in Blood by Automated count 2025-02-16 03:53:13 3.7 x 10^3 cells/uL F 4.0-11.0 Lymphocytes [#/volume] in Blood by Automated count 2025-02-16 03:53:13 1100 Cells/uL F 620.0-3660.0 MineralBone Disorder Description Draw Date Result/Unit Status Ref Range Result Comments Alkaline phosphatase [Enzymatic activity/volume] in Serum or Plasma 2025-02-16 00:30:16 151 U/L F 46.0-116.0 CA CORRECTED 2025-02-02 07:57:31 9 mg/dL F CA/PHOS PRODUCT 2025-02-02 07:56:16 24.3 Calc F 21.0-53.0 CA*PO4 CORRCTD 2025-02-02 07:56:16 24.3 Calc F 21.0-53.0 Calcium [Mass/volume] in Serum or Plasma 2025-02-02 07:16:31 9 mg/dL F 8.7-10.4 Parathyrin.intact [Mass/volume] in Serum or Plasma 2025-02-02 05:23:16 245 pg/mL F 18.0-80.0 Phosphate [Mass/volume] in Serum or Plasma 2025-02-02 02:24:14 2.7 mg/dL F 2.4-5.1 Nutrition Description Draw Date Result/Unit Status Ref Range Result Comments Potassium [Moles/volume] in Serum or Plasma 2025-02-16 07:21:29 4.4 mEq/L F 3.5-5.1 GLOBULIN 2025-02-16 00:31:03 2.4 g/dL F 0.9-5.0 A/G RATIO 2025-02-16 00:31:03 1.8 Calc F 1.0-2.5 Protein [Mass/volume] in Serum or Plasma 2025-02-16 00:30:16 6.7 g/dL F 5.7-8.2 Albumin [Mass/volume] in Serum or Plasma by Bromocresol green (BCG) dye binding method 2025-02-16 00:30:16 4.3 g/dL F 3.2-4.8 Bicarbonate [Moles/volume] in Serum or Plasma 2025-02-16 00:30:16 29 mEq/L F 20.0-31.0 Lactate dehydrogenase [Enzymatic activity/volume] in Serum or Plasma 2025-02-16 00:30:16 236 U/L F 120.0-246.0 Encounters No encounter information to report Immunizations Ordered Immunization Name Filled Immunization Name Date Status Comments Refusal Reason TST-PPD intradermal 2025-01-10 15:35:30 Influenza Vaccination 2024-03-09 05:00:00 Covid-19 Vaccination 2024-03-09 05:00:00 Covid-19 Vaccination 2024-03-09 05:00:00 TST-PPD intradermal 2024-01-09 18:04:07 Covid-19 Vaccination 2023-12-23 05:00:00 Tdap 2023-12-23 05:00:00 Pneumococcal conjugate PCV20, polysaccharide [id number] conjugate, adjuvant, PF 2023-05-05 20:27:12 TST-PPD intradermal 2023-01-07 15:30:35 TB RAQ 2023-01-07 05:00:00 Covid-19 Vaccination 2021-02-09 08:00:00 Covid-19 Vaccination 2020-09-03 08:00:00 Covid-19 Vaccination 2020-08-06 08:00:00 Tdap 2012-02-19 05:00:00 Tdap 2003-05-11 06:00:00 Hepatitis B Vaccination 1998-12-07 05:00:00 Hepatitis B Vaccination 1998-06-08 06:00:00
[2025-04-21 22:42] VITALS: TEMP 38.4
[2025-04-21 22:53] LABS: Appearance Urine Cloudy (Clear)
[2025-04-21] MEDS: VANCOMYCIN 1.75 GM/350 ML 1.75 GM/350 ML PIGGYBACK IVPB (22:57)
[2025-04-21 23:24] VITALS: BP 156/78; PULSE 80; RESP 18; TEMP 38.4
[2025-04-22 00:26] LABS: Slide Review Acceptable Review (Acceptable)
[2025-04-22 02:56] LABS: Procalcitonin* 0.73 ng/mL (<0.50)
[2025-04-22 04:26] LABS: INR 0.99 (0.91-1.10); Prothrombin Time 13.9 Seconds
--- NOTE | 2025-04-25 12:40 | ED.NURSE ---
[facility] called inquiring about Urine Culture results. Results verbally read to RN and faxed to [facility].
== END 2025-04-21 23:24 | disposition short-term general hospital (02) ==
PROVIDERS: Emergency Provider Emergency Medicine; PCP Internal Medicine Nephrology
DX: R50.9 Fever, unspecified (principal); L03.311 Cellulitis of abdominal wall; D64.9 Anemia, unspecified; Z94.0 Kidney transplant status
CPT/HCPCS: 36415; 71250; 74176; 80048; 81001; 83605; 84145; 85025; 85610; 85730; 86850; 86900; 86901; 87040; 87086; 87631; 96365; 96366; 99285; J2543; J3375

== ENCOUNTER 2025-04-21 22:56 | Outpatient (CLI) | payer MEDICARE, BC, SELFPAY | END 2025-04-21 22:57 | disposition home or self-care (01) | LOC: AMB 05-22 03:02 | PROVIDERS: PCP Surgery; Visit Provider Emergency Medicine | DX: R50.9 Fever, unspecified (principal); L03.311 Cellulitis of abdominal wall; D64.9 Anemia, unspecified; Z94.0 Kidney transplant status | CPT/HCPCS: A0425; A0434 ==

== ENCOUNTER 2025-05-01 00:24 | Emergency (ER) | payer MEDICARE, BC, SELFPAY ==
--- OUTSIDE RECORDS SUMMARY | 2021-06-11 02:52 | XMS_ITS | Continuity of Care Document ---
Author Organization [facility] Address [address] [address] [place] [address] Phone Care Team Providers Care Dietary Director Name Role Phone Dakotah Sherwood MD Unavailable Unavailable Advance Directives Directive Yes / No Effective Date File Name No Information Encounters Encounter Description Practice Location Reason(s) For Visit Diagnoses Date Provider Providers Copied on Encounter [facility], [address] [address], [place], [place], [id number], [place] tel:[phone] [facility] No Information Kaela Claire. [address] [facility], [facility] [address], [place], [place], [address] , [place]. tel:[phone] Family History Family Member Type Diagnosis Age At Onset No Information Payers Payer name Insurance type Covered alliance party ID Authoriza tion(s) No Information Social History Type Description Quantity Date Captured Comments Sex Male Smoking Status No Information Chief Complaint And Reason For Visit No Information Reason For Referral Reason For Referral No Information History Of Present Illness Encounter Date Complaint History Of Prese nt Illness No Information Functional Status Date Functional Assessmen t No Information Instructions Date Instruction Additional Infor mation No Information Assessments Type Assessment Date No Information Patient Care Teams Name Effective Dates (start - stop) Status Members No Information
--- OUTSIDE RECORDS SUMMARY | 2021-06-11 02:52 | XMS_ITS | Continuity of Care Document ---
Author Organization [facility] Address [address] [address] [place] [address] Phone Care Team Providers Care Lace Burn Out Tender Name Role Phone Dakotah Sherwood MD Unavailable Unavailable Advance Directives Directive Yes / No Effective Date File Name No Information Encounters Encounter Description Practice Location Reason(s) For Visit Diagnoses Date Provider Providers Copied on Encounter [facility], [address] [address], [place], [place], [address], [place] tel:[phone] [facility] No Information Kaela Claire. [address] [facility], [facility] [address], [place], [place], [address] , [place]. tel:[phone] Family History Family Member Type Diagnosis Age [...]
--- OUTSIDE RECORDS SUMMARY | 2025-05-01 00:27 | XMS_ITS | Encounter Summary ---
Author Organization [facility] Address [address] [place] [address]. [place] [address] Care Team Providers Care Pump Tender Name Role Phone Sánchez Kowalski APRN DAMPER MAKER Unavailable [phone] Marlen Esposito MD Unavailable [phone] Unavailable Unavail able Karen Steel OCCUPATIONAL HEALTH NURSE Unavailable [phone] Marlen Esposito MD Unavailable [phone] Karen Steel Unavailable [phone] Sánchez Kowalski APRN DAMPER MAKER Unavailable [phone] Unavailable Unavail able Ryan Cole MD Primary Care Provider [phone] Marlen Esposito MD Unavailable [phone] Barbara Valdes MD Unavailable [phone] Encounter Details Date Type Department Care Team (Late st Contact Info) Description 09/10/2023 MyC Medical Advice [facility] [address] [place] [address] Linnea Graff, RN Social [...] AM CDT 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 Gender Identity Male 03/27/2023 11:48 AM [...] as of this encounter Care Teams Pump Tender Relationship Specialty Start Date End Date Ryan Cole MD [address] [place] [address] PCP - General 06/02/23 Sánchez Kowalski APRN DAMPER MAKER [address] [place] [address] [id number] Nurse Practitioner Nephrology 04/11/23 Marlen Esposito MD [address] [place] [address] [id number] Surgery 04/11/[address] [address] Registered Dietitian Dietitian, Registered 04/11/23 Karen Steel LICSW Ammonia Box Operator 04/11/23 Marlen Esposito MD [address] [place] [address] [id number] Surgery 05/21/23 Karen Steel LICSW Ammonia Box Operator 05/21/23 Sánchez Kowalski APRN DAMPER MAKER [address] [place] [address] Nurse Practitioner Nephrology 05/21/[address] [facility] [address] [facility] [address] [place] [address] Registered Dietitian Dietitian, Registered 05/21/23 Marlen Esposito MD [address] [place] [id number] Assigned Surgical Provider 06/21/23 10/13/23 Barbara Valdes MD 6 [facility] [address] [place] [address] Assigned Surgical Provider 10/14/23 04/13/25 documented as of this encounter
--- OUTSIDE RECORDS SUMMARY | 2025-05-01 00:27 | XMS_ITS | Encounter Summary ---
Author Organization [facility] Address [address] [place] [address]. [place] [address] Care Team Providers Care Service Electrician Name Role Phone Sánchez Kowalski APRN YIELD ENGINEER Unavailable [phone] Marlen Esposito MD Unavailable [phone] Unavailable Unavail able Karen Steel MEAL ROOM HAND Unavailable [phone] Marlen Esposito MD Unavailable [phone] Karen Steel Unavailable [phone] Sánchez Kowalski APRN YIELD ENGINEER Unavailable [phone] Unavailable Unavail able Ryan Cole MD Primary Care Provider [phone] Marlen Esposito MD Unavailable [phone] Barbara Valdes MD Unavailable [phone] Encounter Details Date Type Department Care Team (Late st Contact Info) Description 09/01/2023 MyC Medical Advice [facility] [address] [place] [address] Linnea Graff, RN Social History [...] AM CDT 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 Gender Identity Male 03/27/2023 11:48 [...] as of this encounter Care Teams Service Electrician Relationship Specialty Start Date End Date Ryan Cole MD [address] [place] [address] PCP - General 06/02/23 Sánchez Kowalski APRN YIELD ENGINEER [address] [place] [address] [id number] Nurse Practitioner Nephrology 04/11/23 Marlen Esposito MD [address] [place] [address] [id number] Surgery 04/11/[address] [address] Registered Dietitian Dietitian, Registered 04/11/23 Karen Steel LICSW Dust Control Engineer 04/11/23 Marlen Esposito MD [address] [place] [address] [id number] Surgery 05/21/23 Karen Steel LICSW Dust Control Engineer 05/21/23 Sánchez Kowalski APRN YIELD ENGINEER [address] [place] [address] Nurse Practitioner Nephrology 05/21/[address] [facility] 420 [facility] [address] [place] [address] Registered Dietitian Dietitian, Registered 05/21/23 Marlen Esposito MD [address] [place] [address] Assigned Surgical Provider 06/21/23 10/13/23 Barbara Valdes MD 6 [facility] [address] [place] [address] Assigned Surgical Provider 10/14/23 04/13/25 documented as of this encounter
--- OUTSIDE RECORDS SUMMARY | 2025-05-01 00:27 | XMS_ITS | Encounter Summary ---
Author Organization [facility] Address [address] [place] [address]. [place] [address] Care Team Providers Care Tower Truck Driver Name Role Phone Sánchez Kowalski APRN FAMILY LAW LEGAL ASSISTANT Unavailable [phone] Marlen Esposito MD Unavailable [phone] Unavailable Unavail able Karen Steel FINISHING RANGE FEEDER Unavailable [phone] Marlen Esposito MD Unavailable [phone] Karen Steel Unavailable [phone] Sánchez Kowalski APRN FAMILY LAW LEGAL ASSISTANT Unavailable [phone] Unavailable Unavail able Ryan Coel MD Primary Care Provider [phone] Marlen Esposito MD Unavailable [phone] Barbara Valdes MD Unavailable [phone] Encounter Details Date Type Department Care Team (Late st Contact Info) Description 07/27/2023 MyC Medical Advice [facility] [address] [place] [address] Linnea Graff, RN Social History [...] AM CDT 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 Gender Identity Male 03/27/2023 11:48 [...] documented as of this encounter Care Teams Tower Truck Driver Relationship Specialty Start Date End Date Ryan Cole MD [address] [place] [address] PCP - General 06/02/23 Sánchez Kowalski APRN FAMILY LAW LEGAL ASSISTANT [address] [place] [address] [id number] Nurse Practitioner Nephrology 04/11/23 Marlen Esposito MD [address] [place] [address] [id number] Surgery 04/11/[address] [address] Registered Dietitian Dietitian, Registered 04/11/23 Karen Steel LICSW Sap Bw Developer 04/11/23 Marlen Esposito MD [address] [place] [address] [id number] Surgery 05/21/23 Karen Steel LICSW Sap Bw Developer 05/21/23 Sánchez Kowalski APRN FAMILY LAW LEGAL ASSISTANT [address] [place] [address] Nurse Practitioner Nephrology 05/21/[address] [facility] 420 [facility] 84 [place] [address] Registered Dietitian Dietitian, Registered 05/21/23 Marlen Esposito MD [address] [place] [address] Assigned Surgical Provider 06/21/23 10/13/23 Barbara Valdes MD 6 [facility] [address] [place] [address] Assigned Surgical Provider 10/14/23 04/13/25 documented as of this encounter
--- OUTSIDE RECORDS SUMMARY | 2025-05-01 00:27 | XMS_ITS | Encounter Summary ---
Author Organization [facility] Address [address] [place] [address]. [place] [address] Care Team Providers Care Sports Announcer Name Role Phone Sánchez Kowalski APRN VENETIAN BLIND ASSEMBLER Unavailable [phone] Marlen Esposito MD Unavailable [phone] Unavailable Unavail able Karen Steel [employer]OOK Unavailable [phone] Marlen Esposito MD Unavailable [phone] Karen Steel Unavailable [phone] Sánchez Kowalski APRN VENETIAN BLIND ASSEMBLER Unavailable [phone] Unavailable Unavail able Ryan Cole MD Primary Care Provider [phone] Marlen Esposito MD Unavailable [phone] Barbara Valdes MD Unavailable [phone] Encounter Details Date Type Department Care Team (Late st Contact Info) Description 07/21/2023 [facility] Medical Advice [facility] [address] [place] [address] Linnea Graff, RN Social History [...] AM CDT 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 Gender Identity Male 03/27/2023 11:48 AM CDT Sexual Orientation Not on file documented as of this encounter Plan of Treatment Not on file documented as of this encounter Visit Diagnoses Not on filedocumented in this encounter Additional Health Concerns Infection Onset Date Last Indicated Resolved Time Rule Out C-difficile 11/15/2023 11/15/2023 024 6:15 PM CDT documented as of this encounter Care Teams Sports Announcer Relationship Specialty Start Date End Date Ryan Cole MD [address] [place] [address] PCP - General 06/02/23 Sánchez Kowalski APRN VENETIAN BLIND ASSEMBLER [address] [place] [address] 529255 Nurse Practitioner Nephrology 04/11/23 Marlen Esposito MD [address] [place] [address] [id number] Surgery 04/11/[address] [address] Registered Dietitian Dietitian, Registered 04/11/23 Karen Steel LICSW Body Hanger 04/11/23 Marlen Esposito MD [address] [place] [address] [id number] Surgery 05/21/23 Karen Steel LICSW Body Hanger 05/21/23 Sánchez Kowalski APRN VENETIAN BLIND ASSEMBLER [address] [place] [address] Nurse Practitioner Nephrology 05/21/[address] [facility] [address] [facility] 84 [place] [address] Registered Dietitian Dietitian, Registered 05/21/23 Marlen Esposito MD [address] [place] [address] Assigned Surgical Provider 06/21/23 10/13/23 Barbara Valdes MD 6 [facility] [address] [place] [address] Assigned Surgical Provider 10/14/23 04/13/25 documented as of this encounter
--- OUTSIDE RECORDS SUMMARY | 2025-05-01 00:28 | XMS_ITS | Encounter Summary ---
Author Organization [facility] Address [address] [place] [address]. [place] [address] Care Team Providers Care Lettuce Cutter Name Role Phone Sánchez Kowalski APRN GAMING CAGE CASHIER Unavailable [phone] Marlen Esposito MD Unavailable [phone] Unavailable Unavail able Karen Steel RAIL WALKER Unavailable [phone] Marlen Esposito MD Unavailable [phone] Karen Steel Unavailable [phone] Sánchez Kowalski APRN GAMING CAGE CASHIER Unavailable [phone] Unavailable Unavail able Ryan Cole MD Primary Care Provider [phone] Marlen Esposito MD Unavailable +[phone] Barbara Valdes MD Unavailable [phone] Encounter Details Date Type Department Care Team (Late st Contact Info) Description 08/13/2023 [facility] Medical [facility]ice [facility] [address] [place] [address] Linnea Graff, RN Social History [...] AM CDT 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 Gender Identity Male 03/27/2023 11:48 AM CDT Sexual Orientation Not on file documented as of this encounter Plan of Treatment Not on file documented as of this encounter Visit Diagnoses Not on filedocumented in this encounter Additional Health Concerns Infection Onset Date Last Indicated Resolved Time Rule Out C-difficile 11/15/2023 11/15/2023 024 6:15 PM CDT documented as of this encounter Care Teams Lettuce Cutter Relationship Specialty Start Date End Date Ryan Cole MD [address] [place] [address] PCP - General 06/02/23 Sánchez Kowalski APRN GAMING CAGE CASHIER [address] [place] [address] [id number] Nurse Practitioner Nephrology 04/11/23 Marlen Esposito MD [address] [place] [address] [id number] Surgery 04/11/[address] [address] Registered Dietitian Dietitian, Registered 04/11/23 Karen Steel LICSW Senior Electrical Controls Engineer 04/11/23 Marlen Esposito MD [address] [place] [address] [id number] Surgery 05/21/23 Karen Steel LICSW Senior Electrical Controls Engineer 05/21/23 Sánchez Kowalski APRN GAMING CAGE CASHIER [address] [place] [address] Nurse Practitioner Nephrology 05/21/[address] [facility] 420 [facility] 84 [place] [address] Registered Dietitian Dietitian, Registered 05/21/23 Marlen Esposito MD [address] [place] [id number] Assigned Surgical Provider 06/21/23 10/13/23 Barbara Valdes MD 6 [facility] [address] [place] [address] Assigned Surgical Provider 10/14/23 04/13/25 documented as of this encounter
--- OUTSIDE RECORDS SUMMARY | 2025-05-01 00:28 | XMS_ITS | Data Portability ---
Author Organization [place] [employer], [facility] Address [address] [place] [address] Care Team Providers Care Food Cooking Machine Operator Name Role Phone SHERWIN OAKLEY Referring Provider Assessment No assessment recorded. Plan of Treatment Reminders Order Date Submit Date Provider Last Modified By Organization Details Last Modified Time Details Appointments None recorded. Lab None recorded. Referral None recorded. Procedures None recorded. Surgeries None recorded. Imaging x-ray, chest 2016 017 [place] [facility], [address] [place] [address], [phone], 7 14:17:38 Medication Orders Levaquin 500 mg tablet 2016 017 [facility] [employer] #[id number], [address] [place], [place], [id number], 7 14:48:24 prednisone 10 mg tablet 2016 017 [facility] [employer] #[id number], [address] [place], [place], [id number], 7 14:48:26 Patient TargetsNo targets recorded. Patient InstructionsNo instructions recorded. Reason for Referral None Reported. Results Created Date Observation Date Name Description Value Unit Range Abnormal Flag Note LastModifiedBy Organization Detail LastModifiedTime 07/03/19 17 07/03/2016 x-ray , chest No observ ation record ed. [facility] [address] [place], [address], 07/04/2016 16:23:42 Result Notes None recorded. Procedures Surgical History Date Name Laterality Status Provider Name and Address Organization Details Recorded Time 6 Ekg for initial prevent exam completed Marija [place] [facility] 07/01/2016 14:41:12 6 Chest x-ray 2vw frontal&latl completed Marija [place] [facility] 07/01/2016 14:41:28 6 Other completed Marija [place] [facility] 07/01/2016 14:42:03 3 Other completed Marija [place] [facility] 07/01/2016 14:38:53 3 Colonoscopy completed Marija [place] [facility] 07/01/2016 14:41:41 1 Other completed Marija [place] [facility] 07/01/2016 14:40:20 3 Other completed Marija [place] [facility] 07/01/2016 14:38:15 0 Knee surgery [facility] [place] [facility] 07/01/2016 14:39:09 4 Other completed Marija [place] [facility] 07/01/2016 14:37:46 Imaging Results None recorded. Procedure Notes None recorded. Medical Equipment None Reported. Allergies Allergen ID Allergen Name Allergen Category Reaction Reaction Severity Criticality Documentation Date Start Date Code Code System Note Provider Name and Address Organization Details Recorded Time 723660 erythromy ezra medicatio n Not available Not available Not available 07/01/2016 4053 RxNorm Marija Le-R uiz null, [place] [facility] 7 14:29:37 792247 ciproflox acin medicatio n Not available Not available Not available 07/01/2016 2551 RxNorm Marija Le-R uiz null, [facility], [facility] 7 14:29:46 880324 Seroquel medicatio n Not available Not available Not available 07/01/2016 49082 RxNorm Marija Le-R uiz null, [facility] 7 14:29:59 831030 citalopra m medicatio n Not available Not available Not available 07/01/2016 2556 RxNorm Marija Le-R uiz null, [facility] 7 14:30:09 676034 Zyprexa medicatio n Not available Not available Not available 07/01/2016 71234 3 RxNorm Marija Le-R uiz null, [facility] 7 14:30:31 205437 cefixime medicatio n Not available Not available Not available 07/01/2016 86989 RxNorm Marija Le-R uiz null, [facility] 7 14:30:43 Medications Name Sig Start Date [...] Address Organization Details Last Updated DateTime 7 84201.7 1 g 177.8 cm 27.3 kg/m2 99 [degF] 76 /min 16 /min 97 % 97 % 120/70 mm[Hg] Marija cornelius [facility] 7 14:19:29 Social History Question Answer Notes LastModified by Organizat ion Details LastModified Time Tobacco Smoking Status Never Smoker Marija rodriguez [facility], [facility] 07/01/2016 14:35:52 Alcohol Use No Information n ot available 07/01/2016 Marital Status Single Informatio n not available 07/01/2016 Sex: Unknown Functional Status Question Answer Note LastModified by Organizat [employer] Details LastModified Time What is your exercise [...] Amputation (location) N Parkinson's N Paralysis N Headaches/Migraines N Cardiac Pacemaker/defibrillator N Nerve Damage / Neuropathy N Arthritis N Sleep disorder/Insomnia N Heart disease / Heart Attack N Crohn's Disease N HIV/AIDS N Stroke/TIA N Colon Problems N High Cholesterol N Serious Injuries N Kidney Disease Y Memory Loss/Alzheimer's N Gallbladder disease N High blood pressure Y Congestive heart failure N Falls N Alcohol Overuse N Blood Thinner Treatment N Hormone Replacement N Nervous Breakdown N Olvera's Esophagus N Anemia Y Urinary Problems N Colon Polyps N Gastritis N Hospitalizations (other than operations) N Back pain N Diabetes N Rheumatic Fever N Bleeding Disorder N Cardiac Arrhythmias /irregular heart rat e N Osteopenia/Osteoporosis N Anxiety/Stress N Asthma N Vision Problems N Erectile / Sexual Dysfunction N Ostomies (location) N Seizures N Jaundice N Sleep Apnea N Hepatitis N Cirrhosis N GERD/Ulcer N Chicken Pox N Allergies (other than meds) N Immunizations Vaccine Type Date Status Note Provider Nam e and Address Organization Details Recorded Time influenza, unspecified formulation 06/23/2015 completed Marija rodriguez [facility], [facility] 07/01/2016 14:34:59 pneumococcal, unspecified formulation 06/23/2014 completed Marija [facility] [place] - [facility], [facility] 07/01/2016 14:35:14 Past Encounters Encounter ID Performer Location Encounter Start Date Encounter Closed Date Diagnosis/Indication Diagnosis SNOMED-CT Code Diagnosis ICD10 Code Diagnosis IMO Codes Diagnosis Note [id number] Sherwin cash MD [address] [place] [address] [place] [address] 07/01/2016 13:29:03 07/01/2016 14:50:10 Acute bronchitis 57120870 J20.9 Acute condition, Due to intensity and duration of the symptoms I think patient will benefit with treatment Otitis media 41904574 H6 6.90 Due to duration and intensity [...] Cheung Member ID Guarantor Name 07/30/2016 3 [employer] (PPO) Bruce A Samantha [id number] Bruce A Samantha 10/17/2016 1 [place] Bruce A Samantha [id number] Bruce A Samantha 07/30/2016 2 [facility] [employer] [facility] MEDICARE PLAN - ADVANTAGE (MEDICARE REPLACEMENT PFFS) [id number] Bruce A Samantha [id number] Bruce A Samantha 07/30/2016 2 [facility] [employer] [facility] OPEN ACCESS PLUS (HMO) [id number] Bruce A Samantha [id number] Bruce A Samantha 07/30/2016 2 [facility] (MEDICARE SUPPLEMENT) [id number] Bruce A Samantha [id number] Bruce A Samantha Notes Date Note Type [...] noted in the HPI Sherwin funes MD [address] [address], [place], [address], [facility] - [facility], [facility] 07/01/2016 14:51:23
--- OUTSIDE RECORDS SUMMARY | 2025-05-01 00:28 | XMS_ITS | Encounter Summary ---
Author Organization [facility] Address [address] [place] [address]. [place] [address] Care Team Providers Care Kosher Inspector Name Role Phone Sánchez Kowalski APRN ALLERGIST/IMMUNOLOGIST Unavailable [phone] Marlen Esposito MD Unavailable [phone] Unavailable Unavail able Karen Steel BUTTON TACKER Unavailable [phone] Marlen Esposito MD Unavailable [phone] Karen Steel Unavailable [phone] Sánchez Kowalski APRN ALLERGIST/IMMUNOLOGIST Unavailable [phone] Unavailable Unavail able Ryan Cole MD Primary Care Provider [phone] Marlen Esposito MD Unavailable [phone] Barbara Valdes MD Unavailable [phone] Encounter Details Date Type Department Care Team (Late st Contact Info) Description 07/15/2023 [facility] [address] [place] [address] Linnea Graff, RN Social History [...] AM CDT Legal 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 PHYSICIAN CODING SPECIALIST Gender Identity Male 03/27/2023 11:48 AM CDT Sexual Orientation Not on file documented as of this encounter Plan of Treatment Not on file documented as of this encounter Visit Diagnoses Not on filedocumented in this encounter Additional Health Concerns Infection Onset Date Last Indicated Resolved Time Rule Out C-difficile 11/15/2023 11/15/2023 024 6:15 PM CDT documented as of this encounter Care Teams Kosher Inspector Relationship Specialty Start Date End Date Ryan Cole MD [address] [place] [address] PCP - General 06/02/23 Sánchez Kowalski APRN ALLERGIST/IMMUNOLOGIST [address] [place] [address] 539695 Nurse Practitioner Nephrology 04/11/23 Marlen Esposito MD [address] [place] [address] [id number] Surgery 04/11/[address] [address] Registered Dietitian Dietitian, Registered 04/11/23 Karen Steel LICSW Pest Control Pilot 04/11/23 Marlen Esposito MD [address] [place] [address] [id number] Surgery 05/21/23 Karen Steel LICSW Pest Control Pilot 05/21/23 Sánchez Kowalski APRN ALLERGIST/IMMUNOLOGIST [address] [place] [address] Nurse Practitioner Nephrology 05/21/[address] [facility] [address] [facility] [address] [place] [address] Registered Dietitian Dietitian, Registered 05/21/23 Marlen Esposito MD [address] [place] [address] Assigned Surgical Provider 06/21/23 10/13/23 Barbara Valdes MD 6 [facility] [address] [place] [address] Assigned Surgical Provider 10/14/23 04/13/25 documented as of this encounter
--- OUTSIDE RECORDS SUMMARY | 2025-05-01 00:28 | XMS_ITS | Encounter Summary ---
Author Organization [place] Address [address] [place] [address]. [place] [address] Care Team Providers Care Business Practices Officer Name Role Phone Sánchez Kowalski APRN PERSONNEL QUALITY ASSURANCE AUDITOR Unavailable [phone] Marlen Esposito MD Unavailable [phone] Unavailable Unavail able Karen Steel CREDIT ASSOCIATE Unavailable [phone] Marlen Esposito MD Unavailable +[phone] Karen Steel Unavailable [phone] Sánchez Kowalski APRN PERSONNEL QUALITY ASSURANCE AUDITOR Unavailable [phone] Unavailable Unavail able Ryan Cole MD Primary Care Provider [phone] Marlen Esposito MD Unavailable [phone] Barbara Valdes MD Unavailable [phone] Encounter Details Date Type Department Care Team (Late st Contact Info) Description 06/20/2023 [facility] Medical Advice [facility] [address] [place] [address] Linnea Graff, RN Social History [...] AM CDT Legal 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 CARBON FURNACE OPERATOR HELPER Gender Identity Male 03/27/2023 11:48 AM CDT Sexual Orientation Not on file documented as of this encounter Plan of Treatment Not on file documented as of this encounter Visit Diagnoses Not on filedocumented in this encounter Additional Health Concerns Infection Onset Date Last Indicated Resolved Time Rule Out C-difficile 11/15/2023 11/15/2023 024 6:15 PM CDT documented as of this encounter Care Teams Business Practices Officer Relationship Specialty Start Date End Date Ryan Cole MD [address] [place] [address] PCP - General 06/02/23 Sánchez Kowalski APRN PERSONNEL QUALITY ASSURANCE AUDITOR [address] [place] [address] 228925 Nurse Practitioner Nephrology 04/11/23 Marlen Esposito MD [address] [place] [address] [id number] Surgery 04/11/[address] [address] Registered Dietitian Dietitian, Registered 04/11/23 Karen Steel LICSW Tube Inspector 04/11/23 Marlen Esposito MD [address] [place] [address] [id number] Surgery 05/21/23 Karen Steel LICSW Tube Inspector 05/21/23 Sánchez Kowalski APRN PERSONNEL QUALITY ASSURANCE AUDITOR [address] [place] [address] Nurse Practitioner Nephrology 05/21/[address] [facility] 420 [facility] [address] [place] [address] Registered Dietitian Dietitian, Registered 05/21/23 Marlen Esposito MD [address] [place] [address] Assigned Surgical Provider 06/21/23 10/13/23 Barbara Valdes MD 6 [facility] [address] [place] [address] Assigned Surgical Provider 10/14/23 04/13/25 documented as of this encounter
--- OUTSIDE RECORDS SUMMARY | 2025-05-01 00:28 | XMS_ITS | Encounter Summary ---
Author Organization [place] Address [address] [place] [address]. [place] [address] Care Team Providers Care Wastewater Plant Operator Name Role Phone Sánchez Kowalski APRN WEBSPHERE ARCHITECT Unavailable [phone] Marlen Esposito MD Unavailable [phone] Unavailable Unavail able Karen Steel MEMBER OF THE LEGISLATIVE COUNCIL Unavailable [phone] Marlen Esposito MD Unavailable [phone] Karen Steel Unavailable [phone] Sánchez Kowalski APRN WEBSPHERE ARCHITECT Unavailable [phone] Unavailable Unavail able Ryan Cole MD Primary Care Provider [phone] Marlen Esposito MD Unavailable [phone] Barbara Valdes MD Unavailable [phone] Encounter Details Date Type Department Care Team (Late st Contact Info) Description 06/18/2023 Orders Only [facility] [address] [place] [address] Outside, Provider Social History Tobacco Use Types [...] AM CDT Legal 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 UNIVERSITY EXTENSION SPECIALIST Gender Identity Male 03/27/2023 11:48 AM CDT Sexual Orientation Not on file documented as of this encounter Plan of Treatment Not on file documented as of this encounter Procedures Procedure Name Priority Date/Time Associated Diagnosis Comments HLA RESULT REPORT 06/18/2023 1:05 PM UNIVERSITY EXTENSION SPECIALIST HLA RESULT REPORT 06/18/2023 1:05 PM UNIVERSITY EXTENSION SPECIALIST documented in this encounter Results * HLA RESULT REPORT (06/18/2023 1:05 PM UNIVERSITY EXTENSION SPECIALIST) us Provider Outside LAB - IMMUNOLOGY ORDERABLES Fin al Result * HLA RESULT REPORT (06/18/2023 1:05 PM UNIVERSITY EXTENSION SPECIALIST) us Provider Outside LAB - IMMUNOLOGY ORDERABLES Fin al Result documented in this encounter Visit Diagnoses Not on filedocumented in this encounter Additional Health Concerns Infection Onset Date Last Indicated Resolved Time Rule Out C-difficile 11/15/2023 11/15/2023 024 6:15 PM CDT documented as of this encounter Care Teams Wastewater Plant Operator Relationship Specialty Start Date End Date Ryan Cole MD [address] [place] [address] PCP - General 06/02/23 Sánchez Kowalski, COMMUNITY CENTER COORDINATOR WEBSPHERE ARCHITECT [address] [place] [address] 715005 Nurse Practitioner Nephrology 04/11/23 Marlen Esposito MD [address] [place] [address] [id number] Surgery 04/11/[address] [place] [address] Registered Dietitian Dietitian, Registered 04/11/23 Karen Steel, [facility] Forepart Rounder 04/11/23 Marlen Esposito MD [address] [place] [address] Surgery 05/21/23 Karen Steel, [facility] Forepart Rounder 05/21/23 Sánchez Kowalski APRN [facility] [address] [place] [address] Nurse Practitioner Nephrology 05/21/[address] [place] [address] Registered Dietitian Dietitian, Registered 05/21/23 Marlen Esposito MD [address] [place] [address] Assigned Surgical Provider 06/21/23 10/13/23 Barbara Valdes MD [address] [facility] [address] [place] [address] Assigned Surgical Provider 10/14/23 04/13/25 documented as of this encounter
--- OUTSIDE RECORDS SUMMARY | 2025-05-01 00:28 | XMS_ITS | Encounter Summary ---
Author Organization [place] Address [address] [place] [address]. [place] [address] Care Team Providers Care Records Supervisor Name Role Phone Sánchez Kowalski APRN CHARGE NURSE Unavailable [phone] Marlen Esposito MD Unavailable [phone] Unavailable Unavail able Karen Steel BAKER OPERATOR AUTOMATIC Unavailable [phone] Marlen Esposito MD Unavailable [phone] Karen Steel Unavailable [phone] Sánchez Kowalski APRN CHARGE NURSE Unavailable [phone] Unavailable Unavail able Ryan Cole MD Primary Care Provider [phone] Marlen Esposito MD Unavailable [phone] Barbara Valdes MD Unavailable [phone] Encounter Details Date Type Department Care Team (Late st Contact Info) Description 06/05/2023 [facility] [address] [place] [address] Marlen Esposito MD [address] [place] [address] Social History Tobacco Use Types Packs/Day [...] AM CDT Legal 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 PARTS REMOVER Gender Identity Male 03/27/2023 11:48 AM CDT Sexual Orientation Not on file documented as of this encounter Plan of Treatment Not on file documented as of this encounter Visit Diagnoses Not on filedocumented in this encounter Additional Health Concerns Infection Onset Date Last Indicated Resolved Time Rule Out C-difficile 11/15/2023 11/15/2023 024 6:15 PM CDT documented as of this encounter Care Teams Records Supervisor Relationship Specialty Start Date End Date Ryan Cole MD [address] [place] [address] PCP - General 06/02/23 Sánchez Kowalski, ASSISTANT DIRECTOR OF NURSING CHARGE NURSE [address] [place] [address] [phone] Nurse Practitioner Nephrology 04/11/23 Marlen Esposito MD [address] [place] [address] [id number] Surgery 04/11/[address] [place] [address] Registered Dietitian Dietitian, Registered 04/11/23 Karen Steel LICSW Racing Mechanic 04/11/23 Marlen Esposito MD [address] [place] [address] [phone] Surgery 05/21/23 Karen Steel LICSW Racing Mechanic 05/21/23 Sánchez Kowalski APRN CHARGE NURSE [address] [place] [address] Nurse Practitioner Nephrology 05/21/[address] [facility] 420 [facility] [address] [place] [address] Registered Dietitian Dietitian, Registered 05/21/23 Marlen Esposito MD [address] [place] [address] [phone] Assigned Surgical Provider 06/21/23 10/13/23 Barbara Valdes MD 6 [facility] [address] [place], [place] [address] Assigned Surgical Provider 10/14/23 04/13/25 documented as of this encounter
--- OUTSIDE RECORDS SUMMARY | 2025-05-01 00:28 | XMS_ITS | Encounter Summary ---
Author Organization [place] Address [address] [place] [address]. [place] [address] Care Team Providers Care Technical Stenographer Name Role Phone Sánchez Kowalski APRN ANALYTICAL ENGINEER Unavailable [phone] Marlen Esposito MD Unavailable [phone] Unavailable Unavail able Karen Steel [place] MACHINIST Unavailable [phone] Marlen Esposito MD Unavailable [phone] Karen Steel Unavailable [phone] Sánchez Kowalski APRN ANALYTICAL ENGINEER Unavailable [phone] Unavailable Unavail able Ryan Cole MD Primary Care Provider [phone] Marlen Esposito MD Unavailable [phone] Barbara Valdes MD Unavailable [phone] Encounter Details Date Type Department Care Team (Late st Contact Info) Description 07/10/2023 [facility] Medical Advice [facility] [address] [place] [address] Linnea Graff, RN Social History [...] AM CDT Legal 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 OBSERVATORY DIRECTOR Gender Identity Male 03/27/2023 11:48 AM CDT Sexual Orientation Not on file documented as of this encounter Plan of Treatment Not on file documented as of this encounter Visit Diagnoses Not on filedocumented in this encounter Additional Health Concerns Infection Onset Date Last Indicated Resolved Time Rule Out C-difficile 11/15/2023 11/15/2023 024 6:15 PM CDT documented as of this encounter Care Teams Technical Stenographer Relationship Specialty Start Date End Date Ryan Cole MD [address] [place] [address] PCP - General 06/02/23 Sánchez Kowalski APRN ANALYTICAL ENGINEER [address] [place] [address] 299525 Nurse Practitioner Nephrology 04/11/23 Marlen Esposito MD [address] [place] [address] [phone] Surgery 04/11/[address] [address] Registered Dietitian Dietitian, Registered 04/11/23 Karen Steel LICSW Plate Grainer 04/11/23 Marlen Esposito MD [address] [place] [address] [phone] Surgery 05/21/23 Karen Steel LICSW Plate Grainer 05/21/23 Sánchez Kowalski APRN ANALYTICAL ENGINEER [address] [place] [address] Nurse Practitioner Nephrology 05/21/[address] [facility] 420 [facility] [address] [place] [address] Registered Dietitian Dietitian, Registered 05/21/23 Marlen Esposito MD [address] [place] [address] Assigned Surgical Provider 06/21/23 10/13/23 Barbara Valdes MD 6 [facility] [address] [place] [address] Assigned Surgical Provider 10/14/23 04/13/25 documented as of this encounter
--- OUTSIDE RECORDS SUMMARY | 2025-05-01 00:28 | XMS_ITS | Encounter Summary ---
Author Organization [facility] Address [address] [place] [address]. [place] [address] Care Team Providers Care Filenet Architect Name Role Phone Sánchez Kowalski APRN [employer] Unavailable [phone] Marlen Esposito MD Unavailable [phone] Unavailable Unavail able Karen Steel LIABILITY CLAIMS EXAMINER Unavailable [phone] Marlen Esposito MD Unavailable [phone] Karen Steel Unavailable [phone] Sánchez Kowalski APRN [employer] Unavailable [phone] Unavailable Unavail able Ryan Cole MD Primary Care Provider [phone] Marlen Esposito MD Unavailable [phone] Barbara Valdes MD Unavailable [phone] Encounter Details Date Type Department Care Team (Late st Contact Info) Description 07/21/2023 [facility] [place] Advice [facility] [address] [place] [address] Linnea Graff, RN Social History [...] AM CDT Legal 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 PROCESS WORKER Gender Identity Male 03/27/2023 11:48 AM CDT Sexual Orientation Not on file documented as of this encounter Plan of Treatment Not on file documented as of this encounter Visit Diagnoses Not on filedocumented in this encounter Additional Health Concerns Infection Onset Date Last Indicated Resolved Time Rule Out C-difficile 11/15/2023 11/15/2023 024 6:15 PM CDT documented as of this encounter Care Teams Filenet Architect Relationship Specialty Start Date End Date Ryan Cole MD [address] [place] [address] PCP - General 06/02/23 Sánchez Kowalski APRN [employer] [address] [place] [address] [id number] Nurse Practitioner Nephrology 04/11/23 Marlen Esposito MD [address] [place] [address] [phone] Surgery 04/11/[address] [address] Registered Dietitian Dietitian, Registered 04/11/23 Karen Steel LICSW Pecan Mallow Dipper 04/11/23 Marlen Esposito MD [address] [place] [address] [phone] Surgery 05/21/23 Karen Steel LICSW Pecan Mallow Dipper 05/21/23 Sánchez Kowalski APRN [employer] [address] [place] [address] Nurse Practitioner Nephrology 05/21/[address] [facility] [address] [facility] [address] [place] [address] Registered Dietitian Dietitian, Registered 05/21/23 Marlen Esposito MD [address] [place] [address] Assigned Surgical Provider 06/21/23 10/13/23 Barbara Valdes MD 6 [facility] [address] [place] [address] Assigned Surgical Provider 10/14/23 04/13/25 documented as of this encounter
--- OUTSIDE RECORDS SUMMARY | 2025-05-01 00:28 | XMS_ITS | Encounter Summary ---
Author Organization [facility] Address [address] [place] [address]. [place] [address] Care Team Providers Care Heel Cutter Name Role Phone Sánchez Kowalski APRN OPTIMIZATION MANAGER Unavailable [phone] Marlen Esposito MD Unavailable [phone] Unavailable Unavail able Karen Steel NURSE INTERN Unavailable [phone] Marlen Esposito MD Unavailable [phone] Karen Steel Unavailable [phone] Sánchez Kowalski APRN OPTIMIZATION MANAGER Unavailable [phone] Unavailable Unavail able Ryan Cole MD Primary Care Provider Marlen Esposito MD Unavailable [phone] Barbara Valdes MD Unavailable [phone] Encounter Details Date Type Department Care Team (Late st Contact Info) Description 06/05/2023 Orders Only [facility] [address] [place] [address] Outside, Provider Social History Tobacco Use Types [...] AM CDT Legal 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 PURE PAK MACHINE OPERATOR Gender Identity Male 03/27/2023 11:48 AM CDT Sexual Orientation Not on file documented as of this encounter Plan of Treatment Not on file documented as of this encounter Procedures Procedure Name Priority Date/Time Associated Diagnosis Comments HLA RESULT REPORT 06/05/2023 2:18 PM PURE PAK MACHINE OPERATOR HLA RESULT REPORT 06/05/2023 2:18 PM PURE PAK MACHINE OPERATOR documented in this encounter Results * HLA RESULT REPORT (06/05/2023 2:18 PM PURE PAK MACHINE OPERATOR) us Provider Outside LAB - IMMUNOLOGY ORDERABLES Fin al Result * HLA RESULT REPORT (06/05/2023 2:18 PM PURE PAK MACHINE OPERATOR) us Provider Outside LAB - IMMUNOLOGY ORDERABLES Fin al Result documented in this encounter Visit Diagnoses Not on filedocumented in this encounter Additional Health Concerns Infection Onset Date Last Indicated Resolved Time Rule Out C-difficile 11/15/2023 11/15/2023 024 6:15 PM CDT documented as of this encounter Care Teams Heel Cutter Relationship Specialty Start Date End Date Ryan Cole MD [address] [place] [address] PCP - General 06/02/23 Sánchez Kowalski, CLAY DRY PRESS MIXER OPERATOR OPTIMIZATION MANAGER [address] [place] [address] [phone] Nurse Practitioner Nephrology 04/11/23 Marlen Esposito MD [address] [place] [address] [phone] Surgery 04/11/[address] [place] [address] Registered Dietitian Dietitian, Registered 04/11/23 Karen Steel, [facility] Forest Fire Officer 04/11/23 Marlen Esposito MD [address] [place] [address] Surgery 05/21/23 Karen Steel, [facility] Forest Fire Officer 05/21/23 Sánchez Kowalski APRN [facility] [address] [place] [address] Nurse Practitioner Nephrology 05/21/[address] [place] [address] Registered Dietitian Dietitian, Registered 05/21/23 Marlen Esposito MD [address] [place] [address] Assigned Surgical Provider 06/21/23 10/13/23 Barbara Valdes MD 6 [facility] [address] [place] [address] Assigned Surgical Provider 10/14/23 04/13/25 documented as of this encounter
--- OUTSIDE RECORDS SUMMARY | 2025-05-01 00:28 | XMS_ITS | Encounter Summary ---
Author Organization [facility] Address [address] [place] [address]. [place] [address] Care Team Providers Care Lieutenant Ballistics Name Role Phone Sánchez Kowalski APRN SURVEILLANCE SENSOR OFFICER Unavailable [phone] Marlen Esposito MD Unavailable [phone] Unavailable Unavail able Karen Steel TABLE SAW OPERATOR Unavailable [phone] Marlen Esposito MD Unavailable Karen Steel Unavailable [phone] Sánchez Kowalski APRN SURVEILLANCE SENSOR OFFICER Unavailable [phone] Unavailable Unavail able Ryan Cole MD Primary Care Provider [phone] Marlen Esposito MD Unavailable [phone] Barbara Valdes MD Unavailable [phone] Encounter Details Date Type Department Care Team (Late st Contact Info) Description 06/06/2023 [facility] [place] [facility] [address] [place] [address] Sánchez Kowalski APRN SURVEILLANCE SENSOR OFFICER [address] [place] [address] Social History Tobacco Use Types [...] AM CDT Legal 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 ALUMINUM POURER Gender Identity Male 03/27/2023 11:48 AM CDT [...] Ballistics Relationship Specialty Start Date End Date Ryan Cole MD [address] [place] [address] PCP - General 06/02/23 Sánchez Kowalski, ADULT HEALTH CLINICAL NURSE SPECIALIST SURVEILLANCE SENSOR OFFICER [address] [place] [address] [phone] Nurse Practitioner Nephrology 04/11/23 Marlen Esposito MD [address] [place] [address] Surgery 04/11/[address] [place] [address] Registered Dietitian Dietitian, Registered 04/11/23 Karen Steel LICSW Senior Care Manager 04/11/23 Marlen Esposito MD [address] [place] [address] [id number] Surgery 05/21/23 Karen Steel LICSW Senior Care Manager 05/21/23 Sánchez Kowalski APRN SURVEILLANCE SENSOR OFFICER [address] [place] [address] Nurse Practitioner Nephrology 05/21/[address] [place] [address] Registered Dietitian Dietitian, Registered 05/21/23 Marlen Esposito MD [address] [place] [address] Assigned Surgical Provider 06/21/23 10/13/23 Barbara Valdes MD 6 [facility] [address] [place] [address] Assigned Surgical Provider 10/14/23 04/13/25 documented as of this encounter
--- OUTSIDE RECORDS SUMMARY | 2025-05-01 00:28 | XMS_ITS | Clinical Summary ---
Author Organization [facility] Address [address] [place] [address] Care Team Providers Care Railroad Car Cleaning Supervisor Name Role Phone Sánchez Kowalski APRN PARADICHLOROBENZENE MACHINE OPERATOR Unavailable [phone] Marlen Esposito MD Unavailable Patricia Willoughby RD Unavailable Unavail able Karen Steel PHLEBOTOMY INSTRUCTOR Unavailable [phone] Marlen Esposito MD Unavailable Karen Steel PHLEBOTOMY INSTRUCTOR Unavailable [phone] Sánchez Kowalski APRN PARADICHLOROBENZENE MACHINE OPERATOR Unavailable Patricia Willoughby RD Unavailable Unavail able Ryan Cole MD Primary Care Provider [phone] Allergies Active Allergy Reactions Criticality Noted Date [...] MOUTH BEFORE DENTAL APPOINTMENT 3 Active B Zyuxwzw-I-Ydxek Acid (DAVE-DAVID RX) 1 mg TABS Take [...] AM CDT Legal 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 TICKETING CLERK Gender Identity Male 03/27/2023 11:48 AM [...] HEPATITIS C ANTIBODY Routine 06/02/2023 2:36 PM TICKETING CLERK History of liver transplant (H) Hypertensive kidney [...] l Result UR LABORATORY [facility] Acute Care Lab [address] [facility], Room [address] [place] [address], [facility] * (ABNORMAL) CBC with platelets (11/18/2023 6:25 AM CDT) [facility] WBC Count 4.6 4.0 - 11.0 10e3/uL [...] l Result UR LABORATORY [facility] Acute Care Lab [address] [place] [address], [address] * Phosphorus (11/16/2023 6:40 AM CDT) Phosphorus 3.3 2.5 - 4.5 mg/dL 11/16/2023 10:02 AM CDT UR LABORATORY Blood STRUCTURE OF RIGHT UPPER LIMB / Unknown Venipuncture / Unknown 11/16/2023 6:40 AM CDT 11/16/2023 6:58 AM CDT Lorena Greene DO LAB - BLOOD ORDERABLES Final Result UR LABORATORY [facility] Acute Care Lab [address] [place] [address], [address] * Hepatitis C antibody [[id number]] (06/02/2023 2:36 PM TICKETING CLERK) Hepatitis C Antibody Nonreactive Nonreactive 06/03/2023 8:52 AM TICKETING CLERK [facility] DO Blood STRUCTURE OF LEFT UPPER LIMB / Unknown Venipuncture / Unknown 06/02/2023 2:36 PM TICKETING CLERK 06/02/2023 2:37 PM TICKETING CLERK Narrative [facility] - 06/03/2023 8:52 AM TICKETING CLERK Assay performance characteristics have not been established for newborns, infants, and children. us Sánchez Kowalski MANUFACTURING ACCOUNTANT PARADICHLOROBENZENE MACHINE OPERATOR LAB - BLOOD ORDERABLE S Final Result [facility]Prot[facility]Endo [address] [facility], Room [address] [phone] from Last 3 Months or Most Recently Relevant to Health Maintenance Insurance [place] [address] MEDICARE [place] [employer] Advance Directives For more information, please contact: [phone] * Full Code (Latest Code Status on [...] continue PREVIOUSLY ORDERED code status Care Teams Railroad Car Cleaning Supervisor Relationship Specialty Start Date End Date Ryan Cole MD [address] [place] [address] PCP - General 06/02/23 Sánchez Kowalski APRN PARADICHLOROBENZENE MACHINE OPERATOR [address] [place] [address] 168015 Nurse Practitioner Nephrology 04/11/23 Marlen Esposito MD [address] [place] [address] [phone] MD Surgery 04/11/[address] [address] Registered Dietitian Dietitian, Registered 04/11/23 Karen Steel PHLEBOTOMY INSTRUCTOR Lithographic Artist 04/11/23 Marlen Esposito MD [address] [place] [address] [phone] Surgery 05/21/23 Karen Steel PHLEBOTOMY INSTRUCTOR Lithographic Artist 05/21/23 Sánchez Kowalski APRN PARADICHLOROBENZENE MACHINE OPERATOR [address] [place] [address] [id number] Nurse Practitioner Nephrology 05/21/[address] [address] Registered Dietitian Dietitian, Registered 05/21/23
--- OUTSIDE RECORDS SUMMARY | 2025-05-01 00:30 | XMS_ITS | Encounter Summary ---
Author Organization [facility] Address [address] [place] [address]. [place] [address] Care Team Providers Care Broke Worker Name Role Phone Sánchez Kowalski APRN PASSENGER LOCOMOTIVE ENGINEER Unavailable [phone] Marlen Esposito MD Unavailable [phone] Unavailable Unavail able Karen Steel TERMITE CONTROL SERVICER Unavailable [phone] Marlen Esposito MD Unavailable [phone] Karen Steel Unavailable [phone] Sánchez Kowalski APRN PASSENGER LOCOMOTIVE ENGINEER Unavailable [phone] Unavailable Unavail able System, Provider Not In Primary Care Provider Un available Ryan Cole MD Primary Care Provider [phone] Marlen Esposito MD Unavailable [phone] Barbara Valdes MD Unavailable [phone] Encounter Details Date Type Department Care Team (Late st Contact Info) Description 04/11/2023 [facility] [address] [place] [address] Linnea Graff, RN Social History [...] AM CDT Legal 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 Gender Identity Male 03/27/2023 11:48 AM CDT Sexual Orientation Not on file documented as of this encounter Plan of Treatment Not on file documented as of this encounter Visit Diagnoses Not on filedocumented in this encounter Additional Health Concerns Infection Onset Date Last Indicated Resolved Time Rule Out C-difficile 11/15/2023 11/15/2023 024 6:15 PM CDT documented as of this encounter Care Teams Broke Worker Relationship Specialty Start Date End Date System, Provider Not In PCP - General Clinic 05/21/23 05/21/23 Ryan Cole MD [address] [place] [address] PCP - General 06/02/23 Sánchez Kowalski APRN PASSENGER LOCOMOTIVE ENGINEER [address] [place] [address] [phone] Nurse Practitioner Nephrology 04/11/23 Marlen Esposito MD [address] [place] [phone] Surgery 04/11/[address] [place] [address] Registered Dietitian Dietitian, Registered 04/11/23 Karen Steel LICSW Shingle Cutter 04/11/23 Marlen Esposito MD [address] [place] [address] [phone] Surgery 05/21/23 Karen Steel LICSW Shingle Cutter 05/21/23 Sánchez Kowalski APRN [facility] [address] [place] [address] Nurse Practitioner Nephrology 05/21/[address] [facility] [address] [facility] [address] [place] [address] Registered Dietitian Dietitian, Registered 05/21/23 Marlen Esposito MD [address] [place] [address] Assigned Surgical Provider 06/21/23 10/13/23 Barbara Valdes MD 6 [facility] [address] [place] [address] Assigned Surgical Provider 10/14/23 04/13/25 documented as of this encounter
--- OUTSIDE RECORDS SUMMARY | 2025-05-01 00:30 | XMS_ITS | Clinical Summary ---
Author Organization [employer] [facility] Address [address] [place] [address] Care Team Providers Care Carbide Operator Name Role Phone Ryan Cole MD Primary Care Provider [phone] Allergies Active Allergy Reactions Criticality Noted Date [...] renal disease) on dialysis (HC) [facility] 025 Active montelukast 10 mg tabletIndications :Chronic [...] Type Department Care Team Description 04/19/2025 [facility]ill [facility] [address] [facility] [address] Ryan Cole MD Refill Request (Atorvastatin) 04/04/2025 8:00 AM CDT Ancillary Procedure [facility] [address] [place] [address] 04/03/2025 Travel 03/11/2025 3:15 PM CDT Office Visit [facility] [address] [facility] [address] Ryan Cole MD Post-op 03/11/2025 Travel 03/09/2025 Travel 01/31/2025 3:05 PM CDT Office Visit [facility] [address] [place] [address] Patricia Dubose MD Preoperative Exam (cataract surgery 02/16/25, 03/02/25 dr maxwell fax to send pre op [phone] ) 01/31/2025 Travel from Last 3 Months [...] on file Legal Sex Male 6:21 AM FREIGHT BOOKER Gender Identity Not on file Sexual Orientation Not on file Obstetrics History Last Filed Vital Signs Vital Sign Reading Time Taken Comments Blood Pressure 128/72 03/11/2025 3:49 PM CDT Pulse 60 03/11/2025 3:15 PM CDT Temperature 36.4 C (97.6 F) 07/27/2024 8:35 AM FREIGHT BOOKER Respiratory Rate 24 05/24/2021 11:02 AM FREIGHT BOOKER Oxygen Saturation 99% 03/11/2025 3:13 PM CDT [...] - 199 mg/dL 11/25/2023 6:47 PM CDT [facility] Comment: Cholesterol, Total Reference Ranges Desirable <200 mg/dL Borderline 200-239 mg/dL High >=240 mg/dL TRIGLYCERIDES 216(H) <150 mg/dL 11/25/2023 6:47 PM CDT [facility] HDL CHOLESTEROL 52 >40 mg/dL 6:47 PM CDT [facility] NON-HDL CHOLESTEROL 157(H) <145 mg/dl 11/25/2023 6:47 PM CDT [facility] CHOL/HDL RATIO 4.02 <4.50 11/25/2023 6:47 PM CDT [facility] LDL CHOLESTEROL 114 <=130 mg/dL 11/25/2023 6:47 PM CDT [facility] VLDL CHOLESTEROL 43(H) <=30 mg/dL 11/25/2023 6:47 PM CDT [facility] PROVIDER ORDERED STATUS RANDOM 11/25/2023 6:47 PM CDT [facility] Blood BLOOD SPECIMEN / Unknown Venipuncture / Unknown 11/25/2023 9:58 AM CDT 11/25/2023 9:59 AM CDT Ryan Cole MD CHEMISTRY Final Resu lt [facility] [address] [place] [address], * ANTI HCV (04/26/2021 10:01 AM CDT) HEPATITIS C ANTIBODY Non-React davin Non-React davin 04/26/2021 6:19 PM CDT [facility] Comment:Antibodies to HCV no t detected; does not exclude the possibility of exposure to HCV. Blood BLOOD SPECIMEN / Unknown Venipuncture / Unknown 04/26/2021 10:01 AM CDT 04/26/2021 10:01 AM CDT Ryan Cole MD SEND OUTS Final Resu lt [facility] [address] [place] [address], from Last 3 Months or Most Recently Relevant to Health Maintenance Insurance [place] [place] BL[place] HB ONLY MEDICARE PART A HB ONLY MEDICARE PART B HB ONLY [place] [place] BL[place] MR PB ONLY Advance Directives Documents on File Type Date Recorded Patient Executive Officer Expl anation Healthcare Directive 11/28/2023 024 * Full Code (Latest Code Status on File) Date Activated Date Inactivated Comments 04/30/2021 5:43 AM 04/30/2021 10:06 AM Question Answer Comments Code Status Discussion: Reviewed Preferences Care Teams Carbide Operator Relationship Specialty Start Date End Date Ryan Cole MD [address] [place] [address] PCP - General Family Practice 07/11/14
[2025-05-01 00:37] VITALS: BP 200/107; PULSE 66; RESP 20; TEMP 36; O2SAT 100
[2025-05-01] MEDS: SENNOSIDES 1 TAB TABLET 4 TAB PO (01:02)
[2025-05-01] MEDS: DOCUSATE SODIUM/BENZOCAINE 5 ML ENEMA PR (01:02)
--- NOTE | 2025-05-01 01:02 | ED.GENADULT ---
HPI - General Adult General Chief complaint: Constipation Stated complaint: Constipation Time Seen by Provider: 05/01/25 00:47 Source: patient Mode of arrival: ambulatory Limitations: no limitations History of Present Illness HPI narrative: 69-year-old male the notable history of recent kidney transplant and recent E coli infection presents to the emergency department for evaluation of constipation. Has lower abdominal cramping. Has had thorough evaluation for this including a CT scan performed 6 days ago as part of his hospital stay at [facility]. He brings his paper discharge instructions and these are reviewed as well as his discharge summary. CT did not show any other abnormalities. Patient states that over the last 24 hours he has just felt a little bit more distended. He has been using MiraLax once daily but upon specific review, he is not mixing this according to package instructions. He is only using this once daily. No stimulant laxative. Tonight he also tried a tap water enema but admitted he did not realize he had to hold it in for a long period of time in order for it to work best, probably only held this in for about 20 seconds or so. He did not get relief of symptoms nor much stool output with this endeavor. He is not having any vomiting. He is still able to eat and drink normally. He was passing gas up until earlier today. Feels gassy now. No fever. Has not had any recent changes to his medications in the last couple of days since hospital discharge. No neurological changes, no chest pain, no breathing changes. Does make urine. No bloody stools. Not anticoagulated. Does have a PICC line. Past medical history is pretty extensive. Chronic kidney disease. Not currently on dialysis. Multiple medications reviewed. Recent kidney transplant, recent discharge summary from [facility] [place] reviewed. Related Data Home Medications ?Medication ?Instructions ?Recorded ?Confirmed albuterol sulfate 90 mcg/actuation 2 puff inhalation Q6H PRN 03/29/22 10/11/24 aerosol inhaler aspirin 81 mg tablet,delayed 81 mg PO QDAY 03/29/22 10/11/24 release (Adult Low Dose Aspirin) atorvastatin 10 mg tablet 10 mg PO QDAY 03/29/22 10/11/24 azelastine 137 mcg (0.1 %) nasal 1 spray intranasal BID 03/29/22 10/11/24 spray budesonide 0.25 mg/2 mL suspension 0.5 mg inhalation QDAY 03/29/22 10/11/24 for nebulization (Pulmicort) coenzyme Q10 100 mg capsule 100 mg PO QDAY 03/29/22 10/11/24 fluticasone fur. 200 mcg-umeclid 1 inh inhalation QDAY 03/29/22 10/11/24 62.5 mcg-vilant 25 mcg inhalat.powder (Trelegy Ellipta) ipratropium bromide 21 mcg (0.03 2 spray intranasal BID 03/29/22 10/11/24 %) nasal spray lamotrigine 200 mg tablet 200 mg PO BID 03/29/22 10/11/24 (Lamictal) levothyroxine 25 mcg capsule 25 mcg PO QDAY 03/29/22 10/11/24 loratadine 10 mg tablet 10 mg PO QDAY 03/29/22 10/11/24 montelukast 10 mg tablet 10 mg PO QDAY 03/29/22 10/11/24 (Singulair) mycophenolate mofetil 500 mg 500 mg PO Q12H 03/29/22 10/11/24 tablet (CellCept) nifedipine 30 mg tablet,extended 30 mg PO QDAY 03/29/22 10/11/24 release 24 hr (Procardia XL) prednisone 5 mg tablet 5 mg PO QDAY 03/29/22 10/11/24 tacrolimus 0.5 mg capsule, 1.5 mg PO Q12H 03/29/22 10/11/24 immediate-release (Prograf) torsemide 10 mg tablet 10 mg PO QAM 03/29/22 10/11/24 trazodone 100 mg tablet 100 mg PO QDAY 03/29/22 10/11/24 voriconazole 200 mg tablet (Vfend) 200 mg PO Q12H 03/29/22 10/11/24 Previous Rx's ?Medication ?Instructions ?Recorded gabapentin 100 mg capsule See Rx Instructions .Route 02/14/23 .COMPLEX #20 caps Allergies Allergy/AdvReac Type Severity Reaction Status Date / Time cefixime Allergy Intermediate Diarrhea Verified 10/11/24 14:49 quetiapine Allergy Intermediate Edema Verified 10/11/24 14:49 ciprofloxacin Allergy Unknown Verified 10/11/24 14:49 citalopram Allergy Unknown Verified 10/11/24 14:49 PFSH PFSH Social History Smoking Status: Former smoker Do you use any of these nicotine containing products: None Second hand tobacco smoke exposure: No How often do you have a drink containing alcohol: never How often do you have six or more drinks on one occasion: Never AUDIT-C Alcohol total score: 0 Non-prescribed substance use: denies use service: No Exam Const: Vital Signs, click to edit/add: Vital Signs - 24 hr 05/01/25 00:37 Temperature 96.8 F L Pulse Rate [Right Pulse Oximeter] 66 Respiratory Rate 20 Blood Pressure [Le ft Forearm] 200/107 H Pulse Oximetry 100 Oxygen Delivery Me thod Room Air Documenting provider has reviewed patient's vital signs: yes Common normals: no apparent distress General appearance: comfortable and well kempt HENMT: Common normals: normocephalic, moist oral mucous membranes and oropharynx normal Head and scalp: normocephalic Face and sinus: normal facial exam Eye: Common normals: conjunctivae normal General eye: normal appearance of both eyes Conjunctiva: conjunctiva(e) normal Neck & C-Spine: Common normals: full ROM and no lymphadenopathy General: normal visual inspection Resp: Common normals: normal respiratory effort, no use of accessory muscles and clear to auscultation bilaterally Effort & inspection: able to speak in complete sentences Auscultation: clear to auscultation bilaterally Cardio: Common normals: regular rate, regular rhythm, S1 normal heart sound, S2 normal heart sound and no murmurs Rate: regular rate Rhythm: regular rhythm Heart sounds: S1 normal and S2 normal GI: Other: Abdomen is very mildly distended. Bowel sounds do seem present throughout. He is mildly diffusely tender to the lower abdomen but not focal. Certainly no rebound tenderness or guarding. No mass. Extremity: Common normals: normal to inspection and normal capillary refill Psych: Appearance: well kempt Attitude: engaged Insight: insight good Judgement: judgment good Skin: Common normals: no rashes or lesions noted General skin exam: no rashes or lesions noted Course Course ED Course: 69-year-old male with recent extensive medical history presenting with feelings of constipation, CT demonstrating constipation 6 days ago while inpatient at [place], no significant relief at home. Patient has demonstrated that he is continuing to eat and drink normally and up until the last few hours has passed flatus without difficulty. He does not have any severe pain that would make me suspicious of other pathology. Inadequate home trial of a brief tap water enema but not much relief from once daily MiraLax though not quite mixing it at proper concentration. No signs of fever, sepsis or other serious abnormality. Counseled patient that I think it is reasonable for us to start with management of the constipation. He has not used any stimulant laxatives, these would be safer his kidney function. Since he has been backed up for so many days, I did recommend that we do for tablets of senna. Counseled him that he is going to have some cramping from this but it is highly likely to be effective for him. I recommended that we do an Enemeez to allow this to work on any hard in compact and rectal stool. Stressed that it is important that he hold it in as long as possible, preferably about a 1/2 hour prior to trying to pass and the rationale for this is reviewed. Will start with these interventions and see how things go. Reevaluation(s) Reevaluation #1: Update: Patient was able to hold the Enemeez in for about 15-20 minutes and then did pass a soft stool, not a large amount but a moderate size. He did start to feel better after this but still feels like he has quite a bit of stool inside. At this point, he is demonstrated that he is not obstructed. I recommend that we transition to home management and have outlined a plan for continuing on osmotic laxatives now that he has received a dose of stimulant here in the ED. he will take 1 dose of MiraLax prior to departure from the ED. He should go home and try to rest. He is warned that overnight he is likely to have kicking in of the stimulant laxatives and will likely pass large amounts of stool. Expect cramps with this. If he is unable to pass any stool after 8 hours, I recommend that he restart the MiraLax every 8 hours, counseled on proper concentration mixing. Continue this every 8 hours for up to 48 hours if needed. If at any point he has fever, vomiting, bloody stools or severe pain, he should return to the ED. he verbalizes understanding and agreement and plan. No prepared during EMR down time. Update: Nursing team let me know that after we discussed his discharge plan, he did pass large amounts of stool prior to departure. Vital Signs Vital signs: Initial Vital Signs Temperature 96.8 F L 05/01/25 00:37 Temperature Source Temporal Artery Scan 05/01/25 00:37 Pulse Rate 66 05/01/25 00:37 Respiratory Rate 20 05/01/25 00:37 Blood Pressure 200/107 H 05/01/25 00:37 Blood Pressure Mean 138 H 05/01/25 00:37 Blood Pressure Position Sitting 05/01/25 00:37 Pulse Oximetry 100 05/01/25 00:37 Oxygen Delivery Method Room Air 05/01/25 00:37 Vital Signs Temperature 96.8 F L 05/01/25 00:37 Pulse Rate 66 05/01/25 00:37 Respiratory Rate 20 05/01/25 00:37 Blood Pressure 200/107 H 05/01/25 00:37 Pulse Oximetry 100 05/01/25 00:37 Oxygen Delivery Method Room Air 05/01/25 00:37 Temperature 96.8 F L 05/01/25 00:37 Pulse Rate 66 05/01/25 00:37 Respiratory Rate 20 05/01/25 00:37 Blood Pressure 200/107 H 05/01/25 00:37 Pulse Oximetry 100 05/01/25 00:37 Oxygen Delivery Method Room Air 05/01/25 00:37 Medications Administered Medications: Discontinued Medications Generic Name Dose Route Start Last Admin Trade Name Freq PRN Reason Stop Dose Admin Docusate Sodium/Benzocaine 5 ml 05/01/25 01:00 05/01/25 01:02 Docusate Sodium/Benzocaine 5 Ml Enema UT 05/01/25 01:01 5 ml ONCE ONE Administration Polyethylene Glycol 34 gm 05/01/25 02:33 05/01/25 01:57 Polyethylene Glycol 3350 17 Gm Pack PO 05/01/25 02:34 34 gm ONCE ONE Administration Sennosides 4 tab 05/01/25 01:00 05/01/25 01:02 Sennosides 1 Tab Tablet PO 05/01/25 01:01 4 tab ONCE ONE Administration Discharge Plan Discharge Clinical Impression: Constipation Patient Disposition: Home, Self-Care Condition: Improved Instructions: Constipation (DC) Additional Instructions: Patient instructions on Bruce Singh I apologize for the less professional looking discharge instructions, as discussed, we are on computer downtime tonight, we do this once monthly for required patches and updates. I am glad that we were able to get some stool out from down below, this is a good sign.? The large dose of stimulant laxatives that I gave you will probably kick in in 4-6 hours.? Try to go home and get some rest in the meantime.? If you still have not had success after 8 hours, start using the MiraLax 17 g in 6-8 oz of liquid every 8 hours for up to 6 more doses.? If you are still not successful at having large amounts of stool output, please contact your primary care team for further advice and guidance. ?If you have fevers, vomiting, lots of bloody stools or severe pain, please return to the emergency room.? Unfortunately, you will have cramping with this but it should pass pretty quickly once the stool empties. Activity Level: No Restrictions Discharge Diet: Regular Prescriptions: No Action albuterol sulfate 90 mcg/actuation HFA aerosol inhaler 2 puff inhalation Q6H PRN aspirin [Adult Low Dose Aspirin] 81 mg tablet,delayed release (DR/EC) 81 mg PO QDAY atorvastatin 10 mg tablet 10 mg PO QDAY azelastine 137 mcg (0.1 %) aerosol,spray 1 spray intranasal BID Rx Instructions: administer into each nostril budesonide [Pulmicort] 0.25 mg/2 mL suspension for nebulization 0.5 mg inhalation QDAY coenzyme Q10 100 mg capsule 100 mg PO QDAY ipratropium bromide 21 mcg (0.03 %) spray,non-aerosol 2 spray intranasal BID Rx Instructions: administer into each nostril lamotrigine [Lamictal] 200 mg tablet 200 mg PO BID levothyroxine 25 mcg capsule 25 mcg PO QDAY loratadine 10 mg tablet 10 mg PO QDAY montelukast [Singulair] 10 mg tablet 10 mg PO QDAY mycophenolate mofetil [CellCept] 500 mg tablet 500 mg PO Q12H nifedipine [Procardia XL] 30 mg tablet extended release 24hr 30 mg PO QDAY prednisone 5 mg tablet 5 mg PO QDAY tacrolimus [Prograf] 0.5 mg capsule 1.5 mg PO Q12H torsemide 10 mg tablet 10 mg PO QAM trazodone 100 mg tablet 100 mg PO QDAY Trelegy Ellipta 200-62.5-25 mcg blister with device 1 inh inhalation QDAY voriconazole [Vfend] 200 mg tablet 200 mg PO Q12H Rx Instructions: administer on empty stomach, at least 1 hour before or after meal(s) gabapentin 100 mg capsule See Rx Instructions .ROUTE .COMPLEX Qty: 20 0RF Rx Instructions: 100 mg orally every other day after dialysis. Follow Up/Referrals: Ryan Cole MD [Primary Care Provider, Family Practice] Stand Alone Forms: [employer] Info Instructions
== END 2025-05-01 02:36 | disposition home or self-care (01) ==
PROVIDERS: Emergency Provider Family Medicine; PCP Surgery
DX: K59.00 Constipation, unspecified (principal); N18.9 Chronic kidney disease, unspecified; Z94.0 Kidney transplant status; Z98.890 Other specified postprocedural states
CPT/HCPCS: 99283; A9270

== ENCOUNTER 2025-05-08 01:19 | Emergency (ER) | payer MEDICARE, BC, SELFPAY ==
--- OUTSIDE RECORDS SUMMARY | 2021-06-11 02:52 | XMS_ITS | Continuity of Care Document ---
Author Organization [facility] Address [address] [address] [place] [address] Phone Care Team Providers Care Advertising Material Distributor Name Role Phone Dakotah Sherwood MD Unavailable Unavailable Advance Directives Directive Yes / No Effective Date File Name No Information Encounters Encounter Description Practice Location Reason(s) For Visit Diagnoses Date Provider Providers Copied on Encounter [facility], [address] [address], [place], [place], [address], [place] tel:[phone] [facility] No Information Kaela Claire. [address] [facility], [facility] [address], [place], [place], [address] , [place]. tel:[phone] Family History Family Member Type Diagnosis Age At Onset No Information Payers Payer name Insurance type Covered constitution party ID Authoriza tion(s) No Information Social [...]
--- OUTSIDE RECORDS SUMMARY | 2021-06-11 02:52 | XMS_ITS | Continuity of Care Document ---
Author Organization [facility] Address [address] [address] [place] [address] Phone Care Team Providers Care Pellet Machine Operator Name Role Phone Dakotah Sherwood MD Unavailable Unavailable Advance Directives Directive Yes / No Effective Date File Name No Information Encounters Encounter Description Practice Location Reason(s) For Visit Diagnoses Date Provider Providers Copied on Encounter [facility], [address] [address], [place], [place], [address], [place] tel:[phone] [facility] No Information Kaela Claire. [address] [facility], [facility] [address], [place], [place], [address] , [place]. tel:[phone] Family History Family Member Type Diagnosis Age [...]
--- OUTSIDE RECORDS SUMMARY | 2021-06-11 02:52 | XMS_ITS | Continuity of Care Document ---
Author Organization [facility] Address [address] [address] [place] [address] Phone Care Team Providers Care Roll Weigher Name Role Phone Dakotah Sherwood MD Unavailable Unavailable Advance Directives Directive Yes / No Effective Date File Name No Information Encounters Encounter Description Practice Location Reason(s) For Visit Diagnoses Date Provider Providers Copied on Encounter [facility], [address] [address], [place], [place], [address], [place] tel:[phone] [facility] No Information Kaela Claire. [address] [facility], [facility] [address], [place], [place], [address] , [place]. tel:[phone] Family History Family Member Type Diagnosis Age [...]
--- OUTSIDE RECORDS SUMMARY | 2021-06-11 02:52 | XMS_ITS | Continuity of Care Document ---
Author Organization [facility] Address [address] [address] [place] [address] Phone Care Team Providers Care Drainage Design Coordinator Name Role Phone Dakotah Sherwood MD Unavailable Unavailable Advance Directives Directive Yes / No Effective Date File Name No Information Encounters Encounter Description Practice Location Reason(s) For Visit Diagnoses Date Provider Providers Copied on Encounter [facility], [address] [address], [place], [place], [address], [place] tel:[phone] [facility] No Information Kaela Claire. [address] [facility], [facility] [address], [place], [place], [address] , [place]. tel:[phone] Family History Family Member Type Diagnosis Age At Onset No Information Payers Payer name Insurance type Covered green party ID Authoriza tion(s) No Information Social [...]
--- OUTSIDE RECORDS SUMMARY | 2021-06-11 02:52 | XMS_ITS | Continuity of Care Document ---
Author Organization [facility] Address [address] [address] [place] [address] Phone Care Team Providers Care Dynamics Ax Developer Name Role Phone Dakotah Sherwood MD Unavailable Unavailable Advance Directives Directive Yes / No Effective Date File Name No Information Encounters Encounter Description Practice Location Reason(s) For Visit Diagnoses Date Provider Providers Copied on Encounter [facility], [address] [address], [place], [place], [address], [place] tel:[phone] [facility] No Information Kaela Claire. [address] [facility], [facility] [address], [place], [place], [address] , [place]. tel:[phone] Family History Family Member Type Diagnosis Age At Onset No Information Payers Payer name Insurance type Covered libertarian ID Authoriza tion(s) No Information Social History [...]
--- OUTSIDE RECORDS SUMMARY | 2021-06-11 02:52 | XMS_ITS | Continuity of Care Document ---
Author Organization [facility] Address [address] [address] [place] [address] Phone Care Team Providers Care Scrap Crane Operator Name Role Phone Dakotah Sherwood MD Unavailable Unavailable Advance Directives Directive Yes / No Effective Date File Name No Information Encounters Encounter Description Practice Location Reason(s) For Visit Diagnoses Date Provider Providers Copied on Encounter [facility], [address] [address], [place], [place], [address], [place] tel:[phone] [facility] No Information Kaela Claire. [address] [facility], [facility] [address], [place], [place], [address] , [place]. tel:[phone] Family History Family Member Type Diagnosis Age [...]
--- OUTSIDE RECORDS SUMMARY | 2021-06-11 02:52 | XMS_ITS | Continuity of Care Document ---
Author Organization [facility] Address [address] [address] [place] [address] Phone Care Team Providers Care Client Relationship Executive Name Role Phone Dakotah Sherwood MD Unavailable Unavailable Advance Directives Directive Yes / No Effective Date File Name No Information Encounters Encounter Description Practice Location Reason(s) For Visit Diagnoses Date Provider Providers Copied on Encounter [facility], [address] [address], [place], [place], [address], [place] tel:[phone] [facility] No Information Kaela Claire. [address] [facility], [facility] [address], [place], [place], [address] , [place]. tel:[phone] Family History Family Member Type Diagnosis Age [...]
--- OUTSIDE RECORDS SUMMARY | 2021-06-11 02:52 | XMS_ITS | Continuity of Care Document ---
Author Organization [facility] Address [address] [address] [place] [address] Phone Care Team Providers Care Oyster Buyer Name Role Phone Dakotah Sherwood MD Unavailable Unavailable Advance Directives Directive Yes / No Effective Date File Name No Information Encounters Encounter Description Practice Location Reason(s) For Visit Diagnoses Date Provider Providers Copied on Encounter [facility], [address] [address], [place], [place], [address], [place] tel:[phone] [facility] No Information Kaela Claire. [address] [facility], [facility] [address], [place], [place], [address] , [place]. tel:[phone] Family History Family Member Type Diagnosis Age At Onset No Information Payers Payer name Insurance type Covered democrat ID Authoriza tion(s) No Information Social History [...]
--- OUTSIDE RECORDS SUMMARY | 2021-06-11 02:52 | XMS_ITS | Continuity of Care Document ---
Author Organization [facility] Address [address] [address] [place] [address] Phone Care Team Providers Care Compliance Program Manager Name Role Phone Dakotah Sherwood MD Unavailable Unavailable Advance Directives Directive Yes / No Effective Date File Name No Information Encounters Encounter Description Practice Location Reason(s) For Visit Diagnoses Date Provider Providers Copied on Encounter [facility], [address] [address], [place], [place], [address], [place] tel:[phone] [facility] No Information Kaela Claire. [address] [facility], [facility] [address], [place], [place], [address] , [place]. tel:[phone] Family History Family Member Type Diagnosis Age [...]
--- OUTSIDE RECORDS SUMMARY | 2021-06-11 02:52 | XMS_ITS | Continuity of Care Document ---
Author Organization [facility] Address [address] [address] [place] [address] Phone Care Team Providers Care Airplane First Officer Name Role Phone Dakotah Sherwood MD Unavailable Unavailable Advance Directives Directive Yes / No Effective Date File Name No Information Encounters Encounter Description Practice Location Reason(s) For Visit Diagnoses Date Provider Providers Copied on Encounter [facility], [address] [address], [place], [place], [address], [place] tel:[phone] [facility] No Information Kaela Claire. [address] [facility], [facility] [address], [place], [place], [address] , [place]. tel:[phone] Family History Family Member Type Diagnosis Age [...]
--- OUTSIDE RECORDS SUMMARY | 2021-06-11 02:52 | XMS_ITS | Continuity of Care Document ---
Author Organization [facility] Address [address] [address] [place] [address] Phone Care Team Providers Care Crew Dispatcher Name Role Phone Dakotah Sherwood MD Unavailable Unavailable Advance Directives Directive Yes / No Effective Date File Name No Information Encounters Encounter Description Practice Location Reason(s) For Visit Diagnoses Date Provider Providers Copied on Encounter [facility], [address] [address], [place], [place], [address], [place] tel:[phone] [facility] No Information Kaela Claire. [address] [facility], [facility] [address], [place], [place], [address] , [place]. tel:[phone] Family History Family Member Type Diagnosis Age [...]
--- OUTSIDE RECORDS SUMMARY | 2025-05-08 01:21 | XMS_ITS | Encounter Summary ---
Author Organization [facility] Address [address] [place] [address]. [place] [address] Care Team Providers Care Roll Slicing Machine Tender Name Role Phone Sánchez Kowalski APRN DOOR ATTENDANT Unavailable [phone] Marlen Esposito MD Unavailable [phone] Unavailable Unavail able Karen Steel RECEIVABLE CLERK Unavailable [phone] Marlen Esposito MD Unavailable [phone] Karen Steel Unavailable [phone] Sánchez Kowalski APRN DOOR ATTENDANT Unavailable [phone] Unavailable Unavail able Ryan Cole MD Primary Care Provider [phone] Marlen Esposito MD Unavailable [phone] Barbara Valdes MD Unavailable [phone] Encounter Details Date Type Department Care Team (Late st Contact Info) Description 09/10/2023 MyC Medical Advice [facility] [address] [place] [address] Linnea Graff, RN Social History [...] AM CDT 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 Gender Identity Male 03/27/2023 11:48 AM [...] as of this encounter Care Teams Roll Slicing Machine Tender Relationship Specialty Start Date End Date Ryan Cole MD [address] [place] [address] PCP - General 06/02/23 Sánchez Kowalski APRN DOOR ATTENDANT [address] [place] [address] [id number] Nurse Practitioner Nephrology 04/11/23 Marlen Esposito MD [address] [place] [address] [id number] Surgery 04/11/[address] [address] Registered Dietitian Dietitian, Registered 04/11/23 Karen Steel LICSW Automotive Collision Estimator 04/11/23 Marlen Esposito MD [address] [place] [address] [id number] Surgery 05/21/23 Karen Steel LICSW Automotive Collision Estimator 05/21/23 Sánchez Kowalski APRN DOOR ATTENDANT [address] [place] [address] Nurse Practitioner Nephrology 05/21/[address] [facility] [address] [facility] [address] [place] [address] Registered Dietitian Dietitian, Registered 05/21/23 Marlen Esposito MD [address] [place] [id number] Assigned Surgical Provider 06/21/23 10/13/23 Barbara Valdes MD [address] [facility] [address] [place] [address] Assigned Surgical Provider 10/14/23 04/13/25 documented as of this encounter
--- OUTSIDE RECORDS SUMMARY | 2025-05-08 01:21 | XMS_ITS | Encounter Summary ---
Author Organization [facility] Address [address] [place] [address]. [place] [address] Care Team Providers Care Mail Delivery Supervisor Name Role Phone Sánchez Kowalski APRN CAN WORKER Unavailable [phone] Marlen Esposito MD Unavailable [phone] Unavailable Unavail able Karen Steel BAND NAILER Unavailable [phone] Marlen Esposito MD Unavailable [phone] Karen Steel Unavailable [phone] Sánchez Kowalski APRN CAN WORKER Unavailable [phone] Unavailable Unavail able Ryan Cole MD Primary Care Provider [phone] Marlen Esposito MD Unavailable [phone] Barbara Valdes MD Unavailable [phone] Encounter Details Date Type Department Care Team (Late st Contact Info) Description 09/01/2023 MyC Medical Advice [facility] [address] [place] [address] Linnea Graff, RN Social History [...] AM CDT Legal 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 Gender Identity Male 03/27/2023 11:48 AM CDT Sexual Orientation Not on file documented as of this encounter Plan of Treatment Not on file documented as of this encounter Visit Diagnoses Not on filedocumented in this encounter Additional Health Concerns Infection Onset Date Last Indicated Resolved Time Rule Out C-difficile 11/15/2023 11/15/2023 024 6:15 PM CDT documented as of this encounter Care Teams Mail Delivery Supervisor Relationship Specialty Start Date End Date Ryan Cole MD [address] [place] [address] PCP - General 06/02/23 Sánchez Kowalski APRN CAN WORKER [address] [place] [address] [id number] Nurse Practitioner Nephrology 04/11/23 Marlen Esposito MD [address] [place] [address] [id number] Surgery 04/11/[address] [address] Registered Dietitian Dietitian, Registered 04/11/23 Karen Steel LICSW Radiology Supervisor 04/11/23 Marlen Esposito MD [address] [place] [address] [id number] Surgery 05/21/23 Karen Steel LICSW Radiology Supervisor 05/21/23 Sánchez Kowalski APRN CAN WORKER [address] [place] [address] Nurse Practitioner Nephrology 05/21/[address] [facility] [address] [facility] [address] [place] [address] Registered Dietitian Dietitian, Registered 05/21/23 Marlne Esposito MD [address] [place] [id number] Assigned Surgical Provider 06/21/23 10/13/23 Barbara Valdes MD [address] [facility] [address] [place] [address] Assigned Surgical Provider 10/14/23 04/13/25 documented as of this encounter
--- OUTSIDE RECORDS SUMMARY | 2025-05-08 01:22 | XMS_ITS | Data Portability ---
Author Organization [place] - [email or web address], [facility] Address [address] [place] [address] Care Team Providers Care Hand Candle Dipper Name Role Phone SHERWIN OAKLEY Referring Provider Assessment No assessment recorded. Plan of Treatment Reminders Order Date Submit Date Provider Last Modified By Organization Details Last Modified Time Details Appointments None recorded. Lab None recorded. Referral None recorded. Procedures None recorded. Surgeries None recorded. Imaging x-ray, chest 2016 017 [place], [address] [place] [address], [phone], 7 14:17:38 Medication Orders Levaquin 500 mg tablet 2016 017 INTERFACE [id number], [address] [place], [place], [id number], 7 14:48:24 prednisone 10 mg tablet 2016 017 INTERFACE [facility][id number], [address], [place], [id number], 7 14:48:26 Patient TargetsNo targets recorded. Patient InstructionsNo instructions recorded. Reason for Referral None Reported. Results Created Date Observation Date Name Description Value Unit Range Abnormal Flag Note LastModifiedBy Organization Detail LastModifiedTime 07/03/19 17 07/03/2016 x-ray , chest No observ ation record ed. [facility] [address] [place], [address], 07/04/2016 16:23:42 Result Notes None recorded. Procedures Surgical History Date Name Laterality Status Provider Name and Address Organization Details Recorded Time 6 Ekg for initial prevent exam completed Marija [place] [facility], [facility] 07/01/2016 14:41:12 6 Chest x-ray 2vw frontal&latl completed Marija [place] - [facility], [facility] 07/01/2016 14:41:28 6 Other completed Marija [place]man [place] - [facility], [facility] 07/01/2016 14:42:03 3 Other completed Marija [place] [facility], [facility] 07/01/2016 14:38:53 3 Colonoscopy completed Marija [place] - [facility], [facility] 07/01/2016 14:41:41 1 Other completed Marija [place] - [facility], [facility] 07/01/2016 14:40:20 3 Other completed Marija [place] [facility], [facility] 07/01/2016 14:38:15 0 Knee surgery completed [place] [facility] 07/01/2016 14:39:09 4 Other completed Marija [place] [facility], [facility] 07/01/2016 14:37:46 Imaging Results None recorded. Procedure Notes None recorded. Medical Equipment None Reported. Allergies Allergen ID Allergen Name Allergen Category Reaction Reaction Severity Criticality Documentation Date Start Date Code Code System Note Provider Name and Address Organization Details Recorded Time 877777 erythromy ezra medicatio n Not available Not available Not available 07/01/2016 4053 RxNorm Marija Le-R uiz null, [place] - [facility], [facility] 7 14:29:37 541554 ciproflox acin medicatio n Not available Not available Not available 07/01/2016 2551 RxNorm Marija Le-R uiz null, [facility], [facility] 7 14:29:46 766605 Seroquel medicatio n Not available Not available Not available 07/01/2016 06341 RxNorm Marija Le-R uiz null, [facility] 7 14:29:59 618412 citalopra m medicatio n Not available Not available Not available 07/01/2016 2556 RxNorm Marija Le-R uiz null, [facility] 7 14:30:09 970327 Zyprexa medicatio n Not available Not available Not available 07/01/2016 97546 3 RxNorm Marija Le-R uiz null, [facility] 7 14:30:31 150768 cefixime medicatio n Not available Not available Not available 07/01/2016 49221 RxNorm Marija Le-R uiz null, [facility] 7 14:30:43 Medications Name Sig Start Date [...] Address Organization Details Last Updated DateTime 7 94307.7 1 g 177.8 cm 27.3 kg/m2 99 [degF] 76 /min 16 /min 97 % 97 % 120/70 mm[Hg] [facility]nelius [facility] 7 14:19:29 Social History Question Answer Notes LastModified by Organizat ion Details LastModified Time Tobacco Smoking Status Never Smoker Marija rodriguez [facility], [facility] 07/01/2016 14:35:52 Alcohol Use No Information n ot available 07/01/2016 Marital Status Single Informatio n not available 07/01/2016 Sex: Unknown Functional Status Question Answer Note LastModified by Organizat [employer] Details LastModified Time What is your exercise [...] influenza, unspecified formulation 06/23/2015 completed Marija rodriguez [facility], [facility] 07/01/2016 14:34:59 pneumococcal, unspecified formulation 06/23/2014 completed Marija Lind [facility] [place] - [facility], [facility] 07/01/2016 14:35:14 Past Encounters Encounter ID Performer Location Encounter Start Date Encounter Closed Date Diagnosis/Indication Diagnosis SNOMED-CT Code Diagnosis ICD10 Code Diagnosis IMO Codes Diagnosis Note [id number] Sherwin cash MD [address] [place] [address] [place] [address] 07/01/2016 13:29:03 07/01/2016 14:50:10 Acute bronchitis 60591360 J20.9 Acute condition, Due to intensity and duration of the symptoms I think patient will benefit with treatment Otitis media 96380768 H6 6.90 Due to duration and intensity [...] Cheung Member ID Guarantor Name 07/30/2016 3 [employer] (PPO) Bruce A Samantha [id number] Bruce A Samantha 10/17/2016 1 [place] Bruce A Samantha [id number] Bruce A Samantha 07/30/2016 2 [facility] Tryouts [facility] MEDICARE PLAN - ADVANTAGE (MEDICARE REPLACEMENT PFFS) [id number] Bruce A Samantha [id number] Bruce A Samantha 07/30/2016 2 [facility] Tryouts REPLACED BY [facility] OPEN ACCESS PLUS (HMO) [id number] Bruce A Samantha [id number] Bruce A Samantha 07/30/2016 2 [facility] (MEDICARE SUPPLEMENT) [id number] Bruce A Samantha [id number] Bruce A Samantha Notes Date Note Type [...] noted in the HPI Sherwin funes MD [address] [address], [place], [address], [facility] - [facility], [facility] 07/01/2016 14:51:23
--- OUTSIDE RECORDS SUMMARY | 2025-05-08 01:22 | XMS_ITS | Encounter Summary ---
Author Organization [place] Address [address] [place] [address]. [place] [address] Care Team Providers Care Russet Repairer Name Role Phone Sánchez Kowalski APRN RIPSAWYER Unavailable [phone] Marlen Esposito MD Unavailable [phone] Unavailable Unavail able Karen Steel ARC WELDER Unavailable [phone] Marlen Esposito MD Unavailable [phone] Karen Steel Unavailable [phone] Sánchez Kowalski APRN RIPSAWYER Unavailable [phone] Unavailable Unavail able Ryan Cole MD Primary Care Provider [phone] Marlen Esposito MD Unavailable [phone] Barbara Valdes MD Unavailable [phone] Encounter Details Date Type Department Care Team (Late st Contact Info) Description 07/10/2023 [facility] Medical Advice [facility] [address] [place] [address] Linnea Graff, RN Social History [...] AM CDT Legal 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 Gender Identity Male 03/27/2023 11:48 AM CDT [...] Date Ryan Cole MD [address] [place] [address] PCP - General 06/02/23 Sánchez Kowalski APRN RIPSAWYER [address] [place] [address] [id number] Nurse Practitioner Nephrology 04/11/23 Marlen Esposito MD [address] [place] [address] 694255 Surgery 04/11/[address] [address] Registered Dietitian Dietitian, Registered 04/11/23 Karen Steel LICSW Forest Economist 04/11/23 Marlen Esposito MD [address] [place] [address] [id number] Surgery 05/21/23 Karen Steel LICSW Forest Economist 05/21/23 Sánchez Kowalski APRN RIPSAWYER [address] [place] [address] Nurse Practitioner Nephrology 05/21/[address] [facility] [address] [facility] [address] [place] [address] Registered Dietitian Dietitian, Registered 05/21/23 Marlen Esposito MD [address] [place] [address] Assigned Surgical Provider 06/21/23 10/13/23 Barbara Valdes MD 6 [facility] [address] [place] [address] Assigned Surgical Provider 10/14/23 04/13/25 documented as of this encounter
--- OUTSIDE RECORDS SUMMARY | 2025-05-08 01:22 | XMS_ITS | Encounter Summary ---
Author Organization [place] Address [address] [place] [address]. [place] [address] Care Team Providers Care Helper Teacher Name Role Phone Sánchez Kowalski APRN CLAY MACHINE OPERATOR Unavailable [phone] Marlen Esposito MD Unavailable [phone] Unavailable Unavail able Karen Steel AWNING MAKER AND INSTALLER Unavailable [phone] Marlen Esposito MD Unavailable [phone] Karen Steel Unavailable [phone] Sánchez Kowalski APRN CLAY MACHINE OPERATOR Unavailable [phone] Unavailable Unavail able Ryan Cole MD Primary Care Provider Marlen Esposito MD Unavailable [phone] Barbara Valdes MD Unavailable [phone] Encounter Details Date Type Department Care Team (Late st Contact Info) Description 06/18/2023 Orders Only [facility] [address] [place] [address] Outside, Provider Social History Tobacco Use Types [...] AM CDT Legal 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 OPERATOR Gender Identity Male 03/27/2023 11:48 AM CDT Sexual Orientation Not on file documented as of this encounter Plan of Treatment Not on file documented as of this encounter Procedures Procedure Name Priority Date/Time Associated Diagnosis Comments HLA RESULT REPORT 06/18/2023 1:05 PM 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 OPERATOR HLA RESULT REPORT 06/18/2023 1:05 PM 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 OPERATOR documented in this encounter Results * HLA RESULT REPORT (06/18/2023 1:05 PM 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 OPERATOR) us Provider Outside LAB - IMMUNOLOGY ORDERABLES Fin al Result * HLA RESULT REPORT (06/18/2023 1:05 PM 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 OPERATOR) us Provider Outside LAB - IMMUNOLOGY ORDERABLES Fin al Result documented in this encounter Visit Diagnoses Not on filedocumented in this encounter Additional Health Concerns Infection Onset Date Last Indicated Resolved Time Rule Out C-difficile 11/15/2023 11/15/2023 024 6:15 PM CDT documented as of this encounter Care Teams Helper Teacher Relationship Specialty Start Date End Date Ryan Cole MD [address] [place] [address] PCP - General 06/02/23 Sánchez Kowalski, YARD JOCKEY CLAY MACHINE OPERATOR [address] [place] [address] [phone] Nurse Practitioner Nephrology 04/11/23 Marlen Esposito MD [address] [place] [address] [phone] Surgery 04/11/[address] [place] [address] Registered Dietitian Dietitian, Registered 04/11/23 Karen Steel, [facility] Oil Separator 04/11/23 Marlen Esposito MD [address] [place] [address] Surgery 05/21/23 Karen Steel, [facility] Oil Separator 05/21/23 Sánchez Kowalski APRN [facility] [address] [place] [address] Nurse Practitioner Nephrology 05/21/[address] [place] [address] Registered Dietitian Dietitian, Registered 05/21/23 Marlen Esposito MD [address] [place] [address] Assigned Surgical Provider 06/21/23 10/13/23 Barbara Valdes MD 6 [facility] [address] [place] [address] Assigned Surgical Provider 10/14/23 04/13/25 documented as of this encounter
--- OUTSIDE RECORDS SUMMARY | 2025-05-08 01:22 | XMS_ITS | Clinical Summary ---
Author Organization [place] Address [address] [place] [address] Care Team Providers Care Building Engineer Name Role Phone Sánchez Kowalski APRN AIRPORT OPERATIONS CREW MEMBER Unavailable Marlen Esposito MD Unavailable [phone] Unavailable Unavail able Karen Steel MAINTENANCE SUPERINTENDENT Unavailable [phone] Marlen Esposito MD Unavailable Karen Steel MAINTENANCE SUPERINTENDENT Unavailable Sánchez Kowalski APRN AIRPORT OPERATIONS CREW MEMBER Unavailable Patricia Willoughby RD Unavailable Unavail able Ryan Cole MD Primary Care Provider [phone] Allergies Active Allergy Reactions Criticality Noted Date [...] MOUTH BEFORE DENTAL APPOINTMENT 3 Active B Eqvrlcq-S-Ftnyv Acid (DAVE-DAVID RX) 1 mg TABS Take [...] AM CDT Legal 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 WHITE SUGAR PAN TANK OPERATOR Gender Identity Male 03/27/2023 11:48 AM [...] HEPATITIS C ANTIBODY Routine 06/02/2023 2:36 PM WHITE SUGAR PAN TANK OPERATOR History of liver transplant (H) Hypertensive [...] BLOOD ORDERABLES Nelly l Result UR LABORATORY [facility] [address] [facility], [address] [place] [address], [place] * (ABNORMAL) CBC with platelets (11/18/2023 6:25 AM CDT) [facility] WBC Count 4.6 4.0 - 11.0 10e3/uL [...] BLOOD ORDERABLES Nelly l Result UR LABORATORY [facility] [address] [place] [address], [address] * Phosphorus (11/16/2023 6:40 AM CDT) Phosphorus 3.3 2.5 - 4.5 mg/dL 11/16/2023 10:02 AM CDT UR LABORATORY Blood STRUCTURE OF RIGHT UPPER LIMB / Unknown Venipuncture / Unknown 11/16/2023 6:40 AM CDT 11/16/2023 6:58 AM CDT Lorena Greene DO LAB - BLOOD ORDERABLES Final Result UR LABORATORY [facility] [address] [place] [address], [address] * Hepatitis C antibody [[id number]] (06/02/2023 2:36 PM WHITE SUGAR PAN TANK OPERATOR) Hepatitis C Antibody Nonreactive Nonreactive 06/03/2023 8:52 AM WHITE SUGAR PAN TANK OPERATOR [facility] DO Blood STRUCTURE OF LEFT UPPER LIMB / Unknown Venipuncture / Unknown 06/02/2023 2:36 PM WHITE SUGAR PAN TANK OPERATOR 06/02/2023 2:37 PM WHITE SUGAR PAN TANK OPERATOR Narrative [facility]/ENDO - 06/03/2023 8:52 AM WHITE SUGAR PAN TANK OPERATOR Assay performance characteristics have not been established for newborns, infants, and children. us Sánchez Kowalski PUMP SERVICER SUPERVISOR AIRPORT OPERATIONS CREW MEMBER LAB - BLOOD ORDERABLE S Final Result [facility]Prot[facility]Endo [address] [facility], Room [address] [phone] from Last 3 Months or Most Recently Relevant to Health Maintenance [place] [address] [place] [address] [facility] Address: [facility] [address] [place] [address] MEDICARE BC [place] [facility] MEDICARE Advance Directives For more information, please contact: [phone] * Full Code (Latest Code Status on [...] continue PREVIOUSLY ORDERED code status Care Teams Building Engineer Relationship Specialty Start Date End Date Ryan Cole MD [address] [place] [address] PCP - General 06/02/23 Sánchez Kowalski APRN AIRPORT OPERATIONS CREW MEMBER [address] [place] [address] [phone] Nurse Practitioner Nephrology 04/11/23 Marlen Esposito MD [address] [place] [address] [id number] MD Surgery 04/11/[address] [address] Registered Dietitian Dietitian, Registered 04/11/23 Karen Steel MAINTENANCE SUPERINTENDENT Food Production Supervisor 04/11/23 Marlen Esposito MD [address] [place] [address] [id number] Surgery 05/21/23 Karen Steel MAINTENANCE SUPERINTENDENT Food Production Supervisor 05/21/23 Sánchez Kowalski APRN AIRPORT OPERATIONS CREW MEMBER [address] [place] [address] 901185 Nurse Practitioner Nephrology 05/21/[address] [address] Registered Dietitian Dietitian, Registered 05/21/23
--- OUTSIDE RECORDS SUMMARY | 2025-05-08 01:22 | XMS_ITS | Encounter Summary ---
Author Organization [place] Address [address] [place] [address]. [place] [address] Care Team Providers Care Scrap Burner Name Role Phone Sánchez Kowalski APRN GROMMET WORKER Unavailable [phone] Marlen Esposito MD Unavailable [phone] Unavailable Unavail able Karen Steel ASIAN STUDIES PROGRAM CHAIR Unavailable [phone] Marlen Esposito MD Unavailable [phone] Karen Steel Unavailable [phone] Sánchez Kowalski APRN GROMMET WORKER Unavailable [phone] Unavailable Unavail able Ryan Cole MD Primary Care Provider [phone] Marlen Esposito MD Unavailable [phone] Barbara Valdes MD Unavailable [phone] Encounter Details Date Type Department Care Team (Late st Contact Info) Description 07/21/2023 [facility] Medical Advice [facility] [address] [place] [address] Linnea Graff, RN Social History [...] AM CDT Legal 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 CUSTOMIZER Gender Identity Male 03/27/2023 11:48 AM CDT Sexual Orientation Not on file documented as of this encounter Plan of Treatment Not on file documented as of this encounter Visit Diagnoses Not on filedocumented in this encounter Additional Health Concerns Infection Onset Date Last Indicated Resolved Time Rule Out C-difficile 11/15/2023 11/15/2023 024 6:15 PM CDT documented as of this encounter Care Teams Scrap Burner Relationship Specialty Start Date End Date Ryan Cole MD [address] [place] [address] PCP - General 06/02/23 Sánchez Kowalski APRN GROMMET WORKER [address] [place] [address] [phone] Nurse Practitioner Nephrology 04/11/23 Marlen Esposito MD [address] [place] [address] [phone] Surgery 04/11/[address] [address] Registered Dietitian Dietitian, Registered 04/11/23 Karen Steel LICSW Printing Specialist 04/11/23 Marlen Esposito MD [address] [place] [address] [phone] Surgery 05/21/23 aKren Steel LICSW Printing Specialist 05/21/23 Sánchez Kowalski APRN GROMMET WORKER [address] [place] [address] Nurse Practitioner Nephrology 05/21/[address] [facility] [address] [facility] [address] [place] [address] Registered Dietitian Dietitian, Registered 05/21/23 Marlen Esposito MD [address] [place] [address] Assigned Surgical Provider 06/21/23 10/13/23 Barbara Valdes MD 6 [facility] [address] [place] [address] Assigned Surgical Provider 10/14/23 04/13/25 documented as of this encounter
--- OUTSIDE RECORDS SUMMARY | 2025-05-08 01:22 | XMS_ITS | Encounter Summary ---
Author Organization [place] Address [address] [place] [address]. [place] [address] Care Team Providers Care Exhauster Name Role Phone Sánchez Kowalski APRN FACILITY PRACTICE SPECIALIST Unavailable [phone] Marlen Esposito MD Unavailable [phone] Unavailable Unavail able Karen Steel TIMBER SUPERVISOR Unavailable [phone] Marlen Esposito MD Unavailable Karen Steel Unavailable [phone] Sánchez Kowalski APRN FACILITY PRACTICE SPECIALIST Unavailable [phone] Unavailable Unavail able Ryan Cole MD Primary Care Provider [phone] Marlen Esposito MD Unavailable [phone] Barbara Valdes MD Unavailable [phone] Encounter Details Date Type Department Care Team (Late st Contact Info) Description 06/06/2023 [facility] Medical Advice [facility] [address] [place] [address] Sánchez Kowalski APRN FACILITY PRACTICE SPECIALIST [address] [place] [address] Social History Tobacco Use Types [...] AM CDT Legal 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 DOCK WORKER Gender Identity Male 03/27/2023 11:48 AM CDT Sexual Orientation Not on file documented as of this encounter Plan of Treatment Not on file documented as of this encounter Visit Diagnoses Not on filedocumented in this encounter Additional Health Concerns Infection Onset Date Last Indicated Resolved Time Rule Out C-difficile 11/15/2023 11/15/2023 024 6:15 PM CDT documented as of this encounter Care Teams Exhauster Relationship Specialty Start Date End Date Ryan Cole MD [address] [place] [address] PCP - General 06/02/23 Sánchez Kowalski, CUTTER FINISHER FACILITY PRACTICE SPECIALIST [address] [place] [address] [phone] Nurse Practitioner Nephrology 04/11/23 Marlen Esposito MD [address] [place] [address] Surgery 04/11/[address] [place] [address] Registered Dietitian Dietitian, Registered 04/11/23 Karen Steel LICSW Government Minister 04/11/23 Marlen Esposito MD [address] [place] [address] [phone] Surgery 05/21/23 Karen Steel LICSW Government Minister 05/21/23 Sánchez Kowalski APRN FACILITY PRACTICE SPECIALIST [address] [place] [address] Nurse Practitioner Nephrology 05/21/[address] [place] [address] Registered Dietitian Dietitian, Registered 05/21/23 Marlen Esposito MD [address] [place] [address] Assigned Surgical Provider 06/21/23 10/13/23 Barbara Valdes MD 6 [facility] [address] [place] [address] Assigned Surgical Provider 10/14/23 04/13/25 documented as of this encounter
--- OUTSIDE RECORDS SUMMARY | 2025-05-08 01:22 | XMS_ITS | Encounter Summary ---
Author Organization [place] Address [address] [place] [address]. [place] [address] Care Team Providers Care Classified Advertising Supervisor Name Role Phone Sánchez Kowalski APRN JOINT CREASER Unavailable +[phone] Marlen Esposito MD Unavailable +[phone] Unavailable Unavail able Karen Steel LASER SPECIALIST Unavailable +[phone] Marlen Esposito MD Unavailable +[phone] Karen Steel Unavailable +[phone] Sánchez Kowalski APRN JOINT CREASER Unavailable [phone] Unavailable Unavail able Ryan Cole MD Primary Care Provider +[phone] Marlen Esposito MD Unavailable +[phone] Barbara Valdes MD Unavailable +[phone] Encounter Details Date Type Department Care Team (Late st Contact Info) Description 07/21/2023 [facility] Medical Advice [facility] [address] [place] [address] Linnea Graff, RN Social History [...] AM CDT Legal 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 Gender Identity Male 03/27/2023 11:48 AM CDT Sexual Orientation Not on file documented as of this encounter Plan of Treatment Not on file documented as of this encounter Visit Diagnoses Not on filedocumented in this encounter Additional Health Concerns Infection Onset Date Last Indicated Resolved Time Rule Out C-difficile 11/15/2023 11/15/2023 024 6:15 PM CDT documented as of this encounter Care Teams Classified Advertising Supervisor Relationship Specialty Start Date End Date Ryan Cole MD [address] [place] [address] PCP - General 06/02/23 Sánchez Kowalski APRN JOINT CREASER [address] [place] [address] [id number] Nurse Practitioner Nephrology 04/11/23 Marlen Esposito MD [address] [place] [address] [id number] Surgery 04/11/[address] [address] Registered Dietitian Dietitian, Registered 04/11/23 Karen Steel LICSW [employer] Nurse 04/11/23 Marlen Esposito MD [address] [place] [address] [phone] Surgery 05/21/23 Karen Steel LICSW [employer] Nurse 05/21/23 Sánchez Kowalski APRN JOINT CREASER [address] [place] [address] Nurse Practitioner Nephrology 05/21/[address] [facility] [address] [facility] 84 [place] [address] Registered Dietitian Dietitian, Registered 05/21/23 Marlen Esposito MD [address] [place] [id number] Assigned Surgical Provider 06/21/23 10/13/23 Barbara Valdes MD 6 [facility] [address] [place] [address] Assigned Surgical Provider 10/14/23 04/13/25 documented as of this encounter
--- OUTSIDE RECORDS SUMMARY | 2025-05-08 01:22 | XMS_ITS | Encounter Summary ---
Author Organization [facility] Address [address] [place] [address]. [place] [address] Care Team Providers Care Plant Cytologist Name Role Phone Sánchez Kowalski APRN EXPLOSIVE ORDNANCE TECHNICIAN Unavailable [phone] Marlen Esposito MD Unavailable +[phone] Unavailable Unavail able Karen Steel MEDICAL PAYMENT POSTER Unavailable +[phone] Marlen Esposito MD Unavailable +[phone] Karen Steel Unavailable +[phone] Sánchez Kowalski APRN EXPLOSIVE ORDNANCE TECHNICIAN Unavailable [phone] Unavailable Unavail able Ryan Cole MD Primary Care Provider [phone] Marlen Esposito MD Unavailable +[phone] Barbara Valdes MD Unavailable +[phone] Encounter Details Date Type Department Care Team (Late st Contact Info) Description 06/05/2023 [facility] [place] Medical Advice [facility] [address] [place] [address] Marlen Espoisto MD [address] [place] [address] Social History Tobacco Use Types Packs/Day [...] AM CDT Legal 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 COLLECTOR 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 Gender Identity Male 03/27/2023 11:48 AM CDT Sexual Orientation Not on file documented as of this encounter Plan of Treatment Not on file documented as of this encounter Visit Diagnoses Not on filedocumented in this encounter Additional Health Concerns Infection Onset Date Last Indicated Resolved Time Rule Out C-difficile 11/15/2023 11/15/2023 024 6:15 PM CDT documented as of this encounter Care Teams Plant Cytologist Relationship Specialty Start Date End Date Ryan Cole MD [address] [place] [address] PCP - General 06/02/23 Sánchez Kowalski, TRUCK SUPERVISOR EXPLOSIVE ORDNANCE TECHNICIAN [address] [place] [address] [phone] Nurse Practitioner Nephrology 04/11/23 Marlen Esposito MD [address] [place] [address] [phone] Surgery 04/11/[address] [place] [address] Registered Dietitian Dietitian, Registered 04/11/23 Karen Steel LICSW Distance Education Faculty Liaison 04/11/23 Marlen Esposito MD [address] [place] [address] [id number] Surgery 05/21/23 Karen Steel LICSW Distance Education Faculty Liaison 05/21/23 Sánchez Kowalski APRN EXPLOSIVE ORDNANCE TECHNICIAN 9 [place] [address] Nurse Practitioner Nephrology 05/21/[address] [facility] 420 [facility] 84 [place] [address] Registered Dietitian Dietitian, Registered 05/21/23 Marlen Esposito MD [address] [place] [address] [phone] Assigned Surgical Provider 06/21/23 10/13/23 Barbara Valdes MD 6 [facility] 2A [place], [place] [phone] Assigned Surgical Provider 10/14/23 04/13/25 documented as of this encounter
--- OUTSIDE RECORDS SUMMARY | 2025-05-08 01:22 | XMS_ITS | Encounter Summary ---
Author Organization [facility] Address [address] [place] [address]. [place] [address] Care Team Providers Care Supervisor Porcelain Department Name Role Phone Sánchez Kowalski APRN MARINE SURVEYOR Unavailable [phone] Marlen Esposito MD Unavailable +[phone] Unavailable Unavail able Karen Steel DRAPERY COUNSELOR Unavailable [phone] Marlen Esposito MD Unavailable +[phone] Karen Steel Unavailable +[phone] Sánchez Kowalski APRN MARINE SURVEYOR Unavailable [phone] Unavailable Unavail able Ryan Cole MD Primary Care Provider [phone] Marlen Espoisto MD Unavailable +[phone] Barbara Valdes MD Unavailable [phone] Encounter Details Date Type Department Care Team (Late st Contact Info) Description 07/27/2023 [facility] Medical Advice [facility] [address] [place] [address] Linnea Graff, RN Social History [...] AM CDT Legal 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 KAIAWHINA KOHANGA REO Gender Identity Male 03/27/2023 11:48 AM CDT Sexual Orientation Not on file documented as of this encounter Plan of Treatment Not on file documented as of this encounter Visit Diagnoses Not on filedocumented in this encounter Additional Health Concerns Infection Onset Date Last Indicated Resolved Time Rule Out C-difficile 11/15/2023 11/15/2023 024 6:15 PM CDT documented as of this encounter Care Teams Supervisor Porcelain Department Relationship Specialty Start Date End Date Ryan Cole MD [address] [place] [address] PCP - General 06/02/23 Sánchez Kowalski APRN MARINE SURVEYOR [address] [place] [address] 195735 Nurse Practitioner Nephrology 04/11/23 Marlen Esposito MD [address] [place] [address] [phone] Surgery 04/11/[address] [address] Registered Dietitian Dietitian, Registered 04/11/23 Karen Steel LICSW Licensed Sales Assistant 04/11/23 Marlen Espostio MD [address] [place] [address] [phone] Surgery 05/21/23 Karen Steel LICSW Licensed Sales Assistant 05/21/23 Sánchez Kowalski APRN MARINE SURVEYOR [address] [place] [address] Nurse Practitioner Nephrology 05/21/[address] [facility] 420 [facility] 84 [address] Registered Dietitian Dietitian, Registered 05/21/23 Marlen Esposito MD [address] [place] [address] Assigned Surgical Provider 06/21/23 10/13/23 Barbara Valdes MD 6 [facility] 2A [address] Assigned Surgical Provider 10/14/23 04/13/25 documented as of this encounter
--- OUTSIDE RECORDS SUMMARY | 2025-05-08 01:22 | XMS_ITS | Encounter Summary ---
Author Organization [facility] Address [address] [place] [address]. [place] [address] Care Team Providers Care Experimental Welder Name Role Phone Sánchez Kowalski APRN PRODUCTION PLANNING MANAGER Unavailable [phone] Marlen Esposito MD Unavailable [phone] Unavailable Unavail able Karen Steel CABLE INSPECTOR Unavailable [phone] Marlen Esposito MD Unavailable [phone] Karen Steel Unavailable [phone] Sánchez Kowalski APRN PRODUCTION PLANNING MANAGER Unavailable [phone] Unavailable Unavail able Ryan Cole MD Primary Care Provider Marlen Esposito MD Unavailable [phone] Barbara Valdes MD Unavailable [phone] Encounter Details Date Type Department Care Team (Late st Contact Info) Description 06/05/2023 Orders Only [facility] [address] [place] [address] Outside, Provider Social History Tobacco Use Types [...] CDT Legal 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 BUDGET CLERK Gender Identity Male 03/27/2023 11:48 AM CDT Sexual Orientation Not on file documented as of this encounter Plan of Treatment Not on file documented as of this encounter Procedures Procedure Name Priority Date/Time Associated Diagnosis Comments HLA RESULT REPORT 06/05/2023 2:18 PM BUDGET CLERK HLA RESULT REPORT 06/05/2023 2:18 PM BUDGET CLERK documented in this encounter Results * HLA RESULT REPORT (06/05/2023 2:18 PM BUDGET CLERK) us Provider Outside LAB - IMMUNOLOGY ORDERABLES Fin al Result * HLA RESULT REPORT (06/05/2023 2:18 PM BUDGET CLERK) us Provider Outside LAB - IMMUNOLOGY ORDERABLES Fin al Result documented in this encounter Visit Diagnoses Not on filedocumented in this encounter Additional Health Concerns Infection Onset Date Last Indicated Resolved Time Rule Out C-difficile 11/15/2023 11/15/2023 024 6:15 PM CDT documented as of this encounter Care Teams Experimental Welder Relationship Specialty Start Date End Date Ryan Cole MD [address] [place] [address] PCP - General 06/02/23 Sánchez Kowalski, MANAGING COGNITIVE ENGINEER PRODUCTION PLANNING MANAGER [address] [place] [address] [phone] Nurse Practitioner Nephrology 04/11/23 Marlen Esposito MD [address] [place] [address] [phone] Surgery 04/11/[address] [place] [address] Registered Dietitian Dietitian, Registered 04/11/23 Karen Steel, [facility] Tube Inspector 04/11/23 Marlen Esposito MD [address] [place] [address] Surgery 05/21/23 Karen Steel, [facility] Tube Inspector 05/21/23 Sánchez Kowalski APRN [facility] [address] [place] [address] Nurse Practitioner Nephrology 05/21/[address] [place] [address] Registered Dietitian Dietitian, Registered 05/21/23 Marlen Esposito MD [address] [place] [address] Assigned Surgical Provider 06/21/23 10/13/23 Barbara Valdes MD 6 [facility] 2[address] [place] [address] Assigned Surgical Provider 10/14/23 04/13/25 documented as of this encounter
--- OUTSIDE RECORDS SUMMARY | 2025-05-08 01:22 | XMS_ITS | Encounter Summary ---
Author Organization [facility] Address [address] [place] [address]. [place] [address] Care Team Providers Care Mechanical Pencils Assembler Name Role Phone Sánchez Kowalski APRN PROBATION SUPERVISOR Unavailable [phone] Marlen Esposito MD Unavailable +[phone] Unavailable Unavail able Karen Steel PROCESS IMPROVEMENT MANAGER Unavailable +[phone] Marlen Esposito MD Unavailable +[phone] Karen Steel Unavailable [phone] Sánchez Kowalski APRN PROBATION SUPERVISOR Unavailable [phone] Unavailable Unavail able Ryan Cole MD Primary Care Provider +[phone] Marlen Esposito MD Unavailable [phone] Barbara Valdes MD Unavailable [phone] Encounter Details Date Type Department Care Team (Late st Contact Info) Description 06/20/2023 [facility] Medical Advice [facility] [address] [place] [address] Linnea Graff, RN Social History [...] AM CDT Legal 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 COLOR MAKING SUPERVISOR Gender Identity Male 03/27/2023 11:48 AM [...] as of this encounter Care Teams Mechanical Pencils Assembler Relationship Specialty Start Date End Date Ryan Cole MD [address] [place] [address] PCP - General 06/02/23 Sánchez Kowalski APRN PROBATION SUPERVISOR [address] [place] [address] [phone] Nurse Practitioner Nephrology 04/11/23 Marlen Esposito MD [address] [place] [address] [phone] Surgery 04/11/[address] [address] Registered Dietitian Dietitian, Registered 04/11/23 Karen Steel LICSW Enterprise Software Engineer 04/11/23 Marlen Esposito MD [address] [place] [address] [phone] Surgery 05/21/23 Karen Steel LICSW Enterprise Software Engineer 05/21/23 Sánchez Kowalski APRN PROBATION SUPERVISOR [address] [place] [address] Nurse Practitioner Nephrology 05/21/[address] [facility] 420 [facility] 84 [place] [address] Registered Dietitian Dietitian, Registered 05/21/23 Marlen Esposito MD [address] [place] [address] Assigned Surgical Provider 06/21/23 10/13/23 Barbara Valdes MD 6 [facility] 2A [place] [address] Assigned Surgical Provider 10/14/23 04/13/25 documented as of this encounter
--- OUTSIDE RECORDS SUMMARY | 2025-05-08 01:22 | XMS_ITS | Encounter Summary ---
Author Organization [facility] Address [address] [place] [address]. [place] [address] Care Team Providers Care Wood Calker Name Role Phone Sánchez Kowalski APRN HAND BLOCKER Unavailable [phone] Marlen Esposito MD Unavailable +[phone] Unavailable Unavail able Karen Steel PRODUCE RUNNER Unavailable +[phone] Marlen Esposito MD Unavailable +[phone] Karen Steel Unavailable +[phone] Sánchez Kowalski APRN HAND BLOCKER Unavailable +[phone] Unavailable Unavail able Ryan Cole MD Primary Care Provider +[phone] Marlen Esposito MD Unavailable [phone] Barbara Valdes MD Unavailable [phone] Encounter Details Date Type Department Care Team (Late st Contact Info) Description 08/13/2023 [facility] [place] [facility] [address] [place] [address] Linnea Graff, RN Social History [...] AM CDT Legal 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 TRAFFIC DIVISION COMMANDING OFFICER Gender Identity Male 03/27/2023 11:48 AM [...] Calker Relationship Specialty Start Date End Date Ryan Cole MD [address] [place] [address] PCP - General 06/02/23 Sánchez Kowalski APRN HAND BLOCKER [address] [place] [address] [phone] Nurse Practitioner Nephrology 04/11/23 Mralen Esposito MD [address] [place] [address] [phone] Surgery 04/11/[address] [address] Registered Dietitian Dietitian, Registered 04/11/23 Karen Steel LICSW Radio Despatcher 04/11/23 Marlen Esposito MD [address] [place] [address] [phone] Surgery 05/21/23 Karen Steel LICSW Radio Despatcher 05/21/23 Sánchez Kowalski APRN HAND BLOCKER [address] [place] [address] Nurse Practitioner Nephrology 05/21/[address] [facility] 420 [facility] 84 [place] [address] Registered Dietitian Dietitian, Registered 05/21/23 Marlen Esposito MD [address] [place] [address] Assigned Surgical Provider 06/21/23 10/13/23 Barbara Valdes MD 6 [facility] 2[address] [place] [address] Assigned Surgical Provider 10/14/23 04/13/25 documented as of this encounter
--- OUTSIDE RECORDS SUMMARY | 2025-05-08 01:22 | XMS_ITS | Encounter Summary ---
Author Organization [facility] Address [address] [place] [address]. [place] [address] Care Team Providers Care Farm Operations Manager Name Role Phone Sánchez Kowalski APRN FIRE APPARATUS ENGINEER Unavailable [phone] Marlen Esposito MD Unavailable +[phone] Unavailable Unavail able Karen Steel RODEO RIDER Unavailable [phone] Marlen Esposito MD Unavailable [phone] Karen Steel Unavailable +[phone] Sánchez Kowalski APRN FIRE APPARATUS ENGINEER Unavailable +[phone] Unavailable Unavail able Ryan Cole MD Primary Care Provider [phone] Marlen Esposito MD Unavailable +[phone] Barbara Valdes MD Unavailable +[phone] Encounter Details Date Type Department Care Team (Late st Contact Info) Description 07/15/2023 [facility] Medical Adv[facility] [address] [place] [address] Linnea Graff, RN Social History [...] AM CDT Legal 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 PROVIDER EDUCATION SPECIALIST Gender Identity Male 03/27/2023 11:48 AM CDT Sexual Orientation Not on file documented as of this encounter Plan of Treatment Not on file documented as of this encounter Visit Diagnoses Not on filedocumented in this encounter Additional Health Concerns Infection Onset Date Last Indicated Resolved Time Rule Out C-difficile 11/15/2023 11/15/2023 024 6:15 PM CDT documented as of this encounter Care Teams Farm Operations Manager Relationship Specialty Start Date End Date Ryan Cole MD [address] [place] [address] PCP - General 06/02/23 Sánchez Kowalski APRN FIRE APPARATUS ENGINEER [address] [place] [address] [phone] Nurse Practitioner Nephrology 04/11/23 Marlen Esposito MD [address] [place] [address] [phone] Surgery 04/11/[address] [address] Registered Dietitian Dietitian, Registered 04/11/23 Karen Steel LICSW Lens Inspector 04/11/23 Marlen Esposito MD [address] [place] [address] [phone] Surgery 05/21/23 Karen Steel LICSW Lens Inspector 05/21/23 Sánchez Kowalski APRN FIRE APPARATUS ENGINEER [address] [place] [address] Nurse Practitioner Nephrology 05/21/[address] [facility] 420 [facility] 84 [place] [address] Registered Dietitian Dietitian, Registered 05/21/23 Marlen Esposito MD [address] [place] [address] Assigned Surgical Provider 06/21/23 10/13/23 Barbara Valdes MD 6 [facility] 2[address] [place] [address] Assigned Surgical Provider 10/14/23 04/13/25 documented as of this encounter
[2025-05-08 01:23] VITALS: BP 151/63; PULSE 75; RESP 19; TEMP 36.4; O2SAT 99; BMI 25.1
--- OUTSIDE RECORDS SUMMARY | 2025-05-08 01:24 | XMS_ITS | Clinical Summary ---
Author Organization [facility] Address [address] [place] [id number] Care Team Providers Care Sfdc Consultant Name Role Phone Ryan Cole MD Primary Care Provider [phone] Allergies Active Allergy Reactions Criticality Noted Date [...] mcg (0.03 %) nasal spray 021 Active azelastine 137 mcg/actuation (ASTELIN) nasal spray Inhale 1 mg into affected nostril(s). Active amoxicillin (AMOXIL) 500 mg capsuleIndication s:History of joint replacement, unspecified joint TAKE 4 CAPSULES BY MOUTH BEFORE DENTAL APPOINTMENT 4 Capsule 1 024 Active albuterol-ipratro pium (DUONEB) (2.5-0.5 mg) in 3 mL NEBULIZATION solution Inhale 1 Neb via a nebulizer every 6 hours if needed for Shortness Of Breath. 023 Active NIFEdipine (PROCARDIA XL) 30 mg extended-release tablet Take 3 Tablets (90 mg) by mouth once daily before a meal. 024 Active belatacept (NULOJIX) injectionIndicati ons:ESRD (end stage renal disease) on dialysis (HC) Infusion per [facility] 025 Active montelukast 10 mg tabletIndications :Chronic [...] once daily. 90 Tablet 3 025 Active valGANciclovir (VALCYTE) 450 mg tablet Take 900 mg by mouth once daily. 025 Active atorvastatin (LIPITOR) 40 mg tabletIndications :Hyperlipidemia, unspecified hyperlipidemia type TAKE 1 TABLET(40 MG) BY MOUTH AT BEDTIME 90 Tablet 2 025 Active trimethoprim-sulf amethoxazole 80-400 mg tab Take 1 Tablet by mouth. 2025 Active tamsulosin 0.4 mg capsule Take 0.4 mg by mouth. Active carvediloL (COREG) 25 mg tablet Take 25 mg by mouth two times daily with meals. 2025 Active calcitrioL (ROCALTROL) 0.25 mcg capsule Take 0.25 mcg by mouth. Active ertapenem (INVANZ) 1 gram solr injection Inject 1 g intravenous once daily. 2024 Active mycophenolate (CELLCEPT) 250 mg capsule Take 750 mg by mouth. Active pantoprazole (PROTONIX) 40 mg delayed-release tablet Take 40 mg by mouth once daily before a meal. Active polyethylene glycol (MIRALAX; GLYCOLAX) 17 g per packet packet Mix 17 g in liquid then take by mouth once daily. Active vancomycin (VANCOCIN) 125 mg capsule Take 125 mg by mouth. 2024 Active sennosides-docusa te (SENOKOT S) (8.6-50 mg) tabletIndications :Constipation, unspecified constipation type Take 1 Tablet by mouth once daily. 90 Tablet 3 Active traZODone (DESYREL) 100 mg tablet Take 100 mg by mouth once daily if needed. 022 2024 Discontinued(* Patient states no longer taking) azaTHIOprine (IMURAN) 50 mg tablet Take 50 mg by mouth. 023 2024 Discontinued(* Patient states no longer taking) atorvastatin (LIPITOR) 40 mg tabletIndications :Hyperlipidemia, unspecified hyperlipidemia type TAKE 1 TABLET(40 MG) BY MOUTH AT BEDTIME 90 Tablet 3 024 2024 Discontinued hydroCHLOROthiazi de 12.5 mg tablet Take 12.5 mg by mouth once daily. 2024 Discontinued(* Patient states no longer taking) NovoLIN N FlexPen 100 unit/mL (3 mL) pen Inject 12 units subcutaneous before breakfast. 2024 Discontinued(* Patient states no longer taking) valGANciclovir (VALCYTE) 450 mg tablet Take 450 mg by mouth. 2024 Discontinued(D uplicate therapy (E-cancel not sent)) Active Problems Problem Noted Date Diagnosed Date Bipolar disorder 11/30/2024 Overview (11/30/2024): He was diagnosed with Bipolar Disorder following a liver transplant and continues to take medication for this but denies having any symptoms related to this since 2012. Closed fracture of neck of right femur Acute pericardial effusion 03/24/2023 Optic neuritis 08/30/2022 [...] Encounters Date Type Department Care Team Description 05/05/2025 12:45 PM TECHNICAL SALES SUPPORT SPECIALIST Office Visit [facility] [address] [place] [address] Ryan Cole MD ER Follow up 05/05/2025 Travel 04/19/2025 Refill [facility] [address] [place] [address] [address] Ryan Cole MD Refill Request (Atorvastatin) 04/04/2025 8:00 AM CDT Ancillary Procedure [facility] [address] [place] [address] [address] 04/03/2025 Travel 03/11/2025 3:15 PM CDT Office Visit [facility] [address] [place] [address] Ryan Cole MD Post-op 03/11/2025 Travel 03/09/2025 Travel from Last 3 Months Immunizations Immunization [...] isolated from those around you? 0 11/25/2024 Alcohol Use Answer Date Recorded How often do you have a drink containing alcohol ? 0 05/05/2025 Average Number of Drinks Not on file 025 Frequency of Binge Drinking Not on file 04/23 Financial Resource Strain Answer Date R ecorded [...] on file Legal Sex Male 6:21 AM TECHNICAL SALES SUPPORT SPECIALIST Gender Identity Not on file Sexual Orientation Not on file Obstetrics History Last Filed Vital Signs Vital Sign Reading Time Taken Comments Blood Pressure 134/72 05/05/2025 1:24 PM TECHNICAL SALES SUPPORT SPECIALIST Pulse 62 05/05/2025 12:52 PM TECHNICAL SALES SUPPORT SPECIALIST Temperature 36.4 C (97.6 F) 07/27/2024 8:35 AM TECHNICAL SALES SUPPORT SPECIALIST Respiratory Rate 24 05/24/2021 11:02 AM TECHNICAL SALES SUPPORT SPECIALIST Oxygen Saturation 100% 05/05/2025 12:50 PM TECHNICAL SALES SUPPORT SPECIALIST Inhaled Oxygen Concentration - - Weight 81.3 kg (179 lb 3.2 oz) 05/05/2025 12:50 PM TECHNICAL SALES SUPPORT SPECIALIST Height 175 cm (5' 8.9) 11/30/2024 9:19 AM CDT Body Mass Index 26.54 11/30/2024 9:19 AM CDT Plan of Treatment [...] a result of the Cures Act, medical imagingexams and procedure reports [...] (ABNORMAL) LIPID PANEL (11/25/2023 9:58 AM CDT) [facility] CHOLESTEROL,TOTAL 209(H) 100 - 199 mg/dL 11/25/2023 6:47 PM CDT [facility] Comment: Cholesterol, Total Reference Ranges Desirable <200 mg/dL Borderline 200-239 mg/dL High >=240 mg/dL TRIGLYCERIDES 216(H) <150 mg/dL 11/25/2023 6:47 PM CDT [facility] HDL CHOLESTEROL 52 >40 mg/dL 6:47 PM CDT [facility] NON-HDL CHOLESTEROL 157(H) <145 mg/dl 11/25/2023 6:47 PM CDT [facility] CHOL/HDL RATIO 4.02 <4.50 11/25/2023 6:47 PM CDT [facility] LDL CHOLESTEROL 114 <=130 mg/dL 11/25/2023 6:47 PM CDT [facility] VLDL CHOLESTEROL 43(H) <=30 mg/dL 11/25/2023 6:47 PM CDT [facility] PROVIDER ORDERED STATUS RANDOM 11/25/2023 6:47 PM CDT [facility] Blood BLOOD SPECIMEN / Unknown Venipuncture / Unknown 11/25/2023 9:58 AM CDT 11/25/2023 9:59 AM CDT us Ryan Cole MD CHEMISTRY Final Resu lt [facility] [address] [place] [address], * ANTI HCV (04/26/2021 10:01 AM CDT) HEPATITIS C ANTIBODY Non-React davin Non-React davin 04/26/2021 6:19 PM CDT [facility] Comment:Antibodies to HCV no t detected; does not exclude the possibility of exposure to HCV. Blood BLOOD SPECIMEN / Unknown Venipuncture / Unknown 04/26/2021 10:01 AM CDT 04/26/2021 10:01 AM CDT Ryan Cole MD SEND OUTS Final Resu lt [facility] [address] [place] [address], from Last 3 Months or Most Recently Relevant to Health Maintenance Insurance [place] HB ONLY MEDICARE PART A HB ONLY MEDICARE PART B HB ONLY [place] BLUE MR PB ONLY Advance Directives Documents on File Type Date Recorded Patient Drug Coordinator Expl anation Healthcare Directive 11/28/202311/27/ 024 * Full Code (Latest Code Status on File) Date Activated Date Inactivated Comments 04/30/2021 5:43 AM 04/30/2021 10:06 AM Question Answer Comments Code Status Discussion: Reviewed Preferences Care Teams Sfdc Consultant Relationship Specialty Start Date End Date Ryan Cole MD [address] [place] [address] PCP - General Family Practice 07/11/14
--- OUTSIDE RECORDS SUMMARY | 2025-05-08 01:24 | XMS_ITS | Encounter Summary ---
Author Organization [facility] Address [address] [place] [address]. [place] [address] Care Team Providers Care Plastics Worker Name Role Phone Sánchez Kowalski APRN VALVE AND REGULATOR REPAIRER Unavailable [phone] Marlen Esposito MD Unavailable [phone] Unavailable Unavail able Karen Steel CAT HOOKER Unavailable [phone] Marlen Esposito MD Unavailable [phone] Karen Steel Unavailable [phone] Sánchez Kowalski APRN VALVE AND REGULATOR REPAIRER Unavailable [phone] Unavailable Unavail able System, Provider Not In Primary Care Provider Un available Ryan Cole MD Primary Care Provider [phone] Marlen Esposito MD Unavailable [phone] Barbara Valdes MD Unavailable [phone] Encounter Details Date Type Department Care Team (Late st Contact Info) Description 04/11/2023 [facility] [address] [place] [address] Linnea Graff, RN Social History [...] AM CDT Legal 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 LOG GRADER Gender Identity Male 03/27/2023 11:48 AM CDT [...] 05/21/23 Ryan Cole MD [address] [place] [address] PCP - General 06/02/23 Sánchez Kowalski APRN VALVE AND REGULATOR REPAIRER [address] [place] [address] [id number] Nurse Practitioner Nephrology 04/11/23 Marlen Esposito MD [address] [place] [address] Surgery 04/11/[address] [place] [address] Registered Dietitian Dietitian, Registered 04/11/23 Karen Steel LICSW Senior Technical Project Manager 04/11/23 Marlen Esposito MD [address] [place] [address] [id number] Surgery 05/21/23 Karen Steel LICSW Senior Technical Project Manager 05/21/23 Sánchez Kowalski APRN [facility] [address] [place] [address] Nurse Practitioner Nephrology 05/21/[address] [facility] [address] [facility] [address] [place] [address] Registered Dietitian Dietitian, Registered 05/21/23 Marlen Esposito MD [address] [place] [id number] Assigned Surgical Provider 06/21/23 10/13/23 Barbara Valdes MD [address] [facility] [address] [place] [address] Assigned Surgical Provider 10/14/23 04/13/25 documented as of this encounter
--- NOTE | 2025-05-08 01:38 | ED.GENADULT ---
HPI - General Adult General Chief complaint: Constipation Stated complaint: bowel obstruction Time Seen by Provider: 05/08/25 01:38 History of Present Illness HPI narrative: Complaint of lower abdominal pain and constipation. Has had minimal bowel movements. N/V noted, denies fevers or other associated symptoms. Rates pain 11/30. Eating ok, but it makes symptoms worse. 69-year-old man presenting to the emergency department with concern of potential bowel obstruction. Seen here a week ago with constipation and lower abdominal pain. Recommended to more aggressive and regular bowel regimen. He also met his primary care provider adding senna and sounds like some MiraLax as well. Earlier in the week he did vomit a couple of times and then today made himself vomit; is brought along niece jar with green vomitus in it. He feels like this is potentially the color stool is worried that he is obstructing bowel. Does not remember the last time he passed gas but he did have some small stool produced today and on some days prior. No fever. Eating tends to trigger more abdominal cramping. Feels he has been generally in increasingly bloated since his January of 2025 kidney transplant, complicated by intra-abdominal hematoma and still with stent which he is hoping to get out this week. Also had an E coli infection and continues to have daily infusions of ertapenem that he does at home. No longer receives/needs dialysis. Antirejection includes prednisone, mycophenolate and a monthly infusion. Related Data Home Medications ?Medication ?Instructions ?Recorded ?Confirmed albuterol sulfate 90 mcg/actuation 2 puff inhalation Q6H PRN 03/29/22 05/08/25 aerosol inhaler aspirin 81 mg tablet,delayed 81 mg PO QDAY 03/29/22 05/08/25 release (Adult Low Dose Aspirin) atorvastatin 10 mg tablet 10 mg PO QDAY 03/29/22 05/08/25 azelastine 137 mcg (0.1 %) nasal 1 spray intranasal BID 03/29/22 05/08/25 spray budesonide 0.25 mg/2 mL suspension 0.5 mg inhalation QDAY 03/29/22 05/08/25 for nebulization (Pulmicort) coenzyme Q10 100 mg capsule 100 mg PO QDAY 03/29/22 05/08/25 fluticasone fur. 200 mcg-umeclid 1 inh inhalation QDAY 03/29/22 05/08/25 62.5 mcg-vilant 25 mcg inhalat.powder (Trelegy Ellipta) ipratropium bromide 21 mcg (0.03 2 spray intranasal BID 03/29/22 05/08/25 %) nasal spray lamotrigine 200 mg tablet 200 mg PO BID 03/29/22 05/08/25 (Lamictal) levothyroxine 25 mcg capsule 25 mcg PO QDAY 03/29/22 05/08/25 loratadine 10 mg tablet 10 mg PO QDAY 03/29/22 05/08/25 montelukast 10 mg tablet 10 mg PO QDAY 03/29/22 05/08/25 (Singulair) mycophenolate mofetil 500 mg 500 mg PO Q12H 03/29/22 05/08/25 tablet (CellCept) nifedipine 30 mg tablet,extended 30 mg PO QDAY 03/29/22 05/08/25 release 24 hr (Procardia XL) prednisone 5 mg tablet 5 mg PO QDAY 03/29/22 05/08/25 tacrolimus 0.5 mg capsule, 1.5 mg PO Q12H 03/29/22 10/11/24 immediate-release (Prograf) torsemide 10 mg tablet 10 mg PO QAM 03/29/22 10/11/24 trazodone 100 mg tablet 100 mg PO QDAY 03/29/22 05/08/25 voriconazole 200 mg tablet (Vfend) 200 mg PO Q12H 03/29/22 10/11/24 carvedilol 25 mg tablet 25 mg PO BID 05/08/25 05/08/25 ertapenem 1 gram solution for 05/08/25 injection pantoprazole 40 mg tablet,delayed 40 mg PO DAILY 05/08/25 05/08/25 release sulfamethoxazole 400 1 tab PO DAILY 05/08/25 05/08/25 mg-trimethoprim 80 mg tablet valganciclovir 450 mg tablet 450 mg PO DAILY 05/08/25 05/08/25 vancomycin 125 mg capsule mg PO DAILY 05/08/25 Allergies Allergy/AdvReac Type Severity Reaction Status Date / Time cefixime Allergy Intermediate Diarrhea Verified 05/08/25 01:34 quetiapine Allergy Intermediate Edema Verified 05/08/25 01:34 ciprofloxacin Allergy Unknown Verified 05/08/25 01:34 citalopram Allergy Unknown Verified 05/08/25 01:34 Review of Systems Status of ROS: Reports: 6 or more systems reviewed and unremarkable except as noted in History and below PFSH [facility] Social History Smoking Status: Former smoker Do you use any of these nicotine containing products: None Second hand tobacco smoke exposure: No How often do you have a drink containing alcohol: never How often do you have six or more drinks on one occasion: Never AUDIT-C Alcohol total score: 0 Non-prescribed substance use: denies use service: No Exam Narrative: Exam Narrative: Pleasant. Fully alert. NAD. Breathing easily. Lungs appear clear. Heart in regular rate and rhythm. Abdomen is distended soft tympanitic. Generally mildly uncomfortable Do not appreciate a fluid wave. Has a PICC line without inflammatory changes at the left arm. Lower extremities are without edema. Const: Vital Signs, click to edit/add: Vital Signs - 24 hr 05/08/25 01:23 Temperature 97.5 F L Pulse Rate [Right Pulse Oximeter] 75 Respiratory Rate 19 Blood Pressure [Le ft Forearm] 151/63 H Pulse Oximetry 99 Oxygen Delivery Me thod Room Air Documenting provider has reviewed patient's vital signs: yes Course Vital Signs Vital signs: Initial Vital Signs Temperature 97.5 F L 05/08/25 01:23 Temperature Source Temporal Artery Scan 05/08/25 01:23 Pulse Rate 75 05/08/25 01:23 Pulse Rhythm Regular 05/08/25 01:23 Respiratory Rate 19 05/08/25 01:23 Blood Pressure 151/63 H 05/08/25 01:23 Blood Pressure Mean 92 05/08/25 01:23 Blood Pressure Position Sitting 05/08/25 01:23 Pulse Oximetry 99 05/08/25 01:23 Oxygen Delivery Method Room Air 05/08/25 01:23 Vital Signs Temperature 97.5 F L 05/08/25 01:23 Pulse Rate 75 05/08/25 01:23 Respiratory Rate 19 05/08/25 01:23 Blood Pressure 151/63 H 05/08/25 01:23 Pulse Oximetry 99 05/08/25 01:23 Oxygen Delivery Method Room Air 05/08/25 01:23 Temperature 97.5 F L 11/16/25 01:23 Pulse Rate 75 05/08/25 01:23 Respiratory Rate 19 05/08/25 01:23 Blood Pressure 151/63 H 05/08/25 01:23 Pulse Oximetry 99 05/08/25 01:23 Oxygen Delivery Method Room Air 05/08/25 01:23 Medical Decision Making MDM Narrative Medical decision making narrative: Making small stool is reassuring but I suppose the lack of flatus is not. Does not demonstrate degree of pain I might typically associate with small-bowel obstruction but certainly might be present. Would do flat and upright abdomen which might prompt further evaluation. Otherwise check standard labs. Does not appear to have peritonitis. Differential includes vascular disruption, mesenteric adenitis, recurrence of hematoma, constipation Flat and upright views of the abdomen and panel reviewed by me to show numerous air-fluid levels in the left upper abdomen not inconsistent with small-bowel obstruction. Will need to proceed with CT imaging. With history of renal problems, admittedly now improved, hopeful that we will be able to see enough without contrast Labs without elevated white count. Absolute neutrophil count is 2.6 creatinine is 1.7. I do review CT images of abdomen and pelvis. Radiology over-read is below INDICATION: Abdominal pain. Concern for small bowel obstruction. TECHNIQUE: CT abdomen and pelvis without contrast. COMPARISON: Abdominal radiographs 05/08/2025, CT chest abdomen pelvis 04/21/2025. FINDINGS: Lower chest: Coronary artery calcifications. Mild cardiomegaly. Liver: Unremarkable. Gallbladder and bile ducts: Cholecystectomy. Pneumobilia is noted, new compared to prior exam. Pancreas: Redemonstrated lobulated lesions at the pancreatic head, body, and tail, incompletely assessed on this single phase examination. No peripancreatic inflammatory changes. No pancreatic ductal dilatation. Spleen: Unremarkable. Adrenal glands: Unremarkable. Kidneys: Atrophic [place] kidneys with grossly unchanged simple and hemorrhagic/proteinaceous cysts. Right lower quadrant transplant kidney with nephro ureteral stent. Grossly unchanged perinephric stranding/edema of the transplant kidney. No definite hydroureteronephrosis. GI tract: Multiple loops of fluid filled dilated small bowel are noted with transition to collapsed small bowel loops within the central abdomen/right lower quadrant. No pneumatosis. Vasculature: Swirling of mesenteric vasculature is present. Questionable minimal portal venous gas. No abdominal aortic aneurysm. There are atherosclerotic vascular calcifications. Lymph nodes: No suspicious lymphadenopathy. Peritoneum/Abdominal Wall: Right lateral abdominal wall hernia containing loops of unobstructed small bowel. Trace pelvic ascites. No pneumoperitoneum. Pelvis: Normal bladder. Unremarkable prostate and seminal vesicles. Bones: No acute abnormality. IMPRESSION: 1. Small-bowel obstruction with transition point noted within the central abdomen/right lower quadrant with regional swirling of mesenteric vasculature, suspicious for closed loop configuration/internal hernia. While foci of somewhat peripheral intrahepatic gas likely reflects extension of intrahepatic pneumobilia, tiny foci of portal venous gas are not definitively excluded. Correlate for developing bowel ischemia. 2. Intrahepatic and extrahepatic pneumobilia, new compared to prior examination. Correlate for recent biliary intervention versus ascending biliary tract infection. 3. Mild cardiomegaly. Please note that all CT scans at this facility use dose modulation, iterative reconstruction, and/or weight-based dosing when appropriate to reduce radiation dose to as low as reasonably achievable. Dictated by Philip Garduno MD @ 05/08/2025 3:25:26 AM I discussed findings of bowel obstruction with concern of internal hernia with Mr. Singh. Lactate is drawn and at normal level of 0.6. Re-examination of abdomen is similar to prior. He is guarding diffusely through his abdomen though with deeper palpation. I would appear that needs to be admitted for bowel rest at this point. Will be receiving L normal saline. Has not needed anything for pain or nausea. Given comorbidities, immunosuppression I think would be better cared for at [facility] where has received his transplants. Contacting [facility] to consider receiving him for care Medical Records Medical records reviewed: Yes I reviewed the patient's medical records Lab Data Lab results reviewed: Yes I reviewed the patient's lab results Labs: Lab Results 05/08/25 05/08/25 Range/Units 02:07 04:05 WBC 3.72 L (4.50-11.00) K/uL RBC 2.37 L (4.30-5.90) m/uL Hgb 8.0 L (13.5-17.5) gm/dL Hct 24.7 L (37.0-53.0) % MCV 104 H (80-100) fL MCH 33 (26-34) pg MCHC 32 (32-36) gm/dL RDW Coeff of Hilda 14.8 (11.5-15.5) % Plt Count 245 (140-440) K/uL Neut % (Auto) 69.9 (42.0-72.0) % Lymph % (Auto) 15.3 L (20-44) % [place] % (Auto) 7.5 (0.0-11.0) % Eos % (Auto) 4.3 (0.0-7.0) % Baso % (Auto) 0.3 (0.0-3.0) % Neut # (Auto) 2.60 (1.7-7.0) K/uL Lymph # (Auto) 0.60 L (0.90-2.90) K/uL [place] # (Auto) 0.30 (0.00-0.90) K/UL Eos # (Auto) 0.20 (0.00-0.50) K/uL Baso # (Auto) 0.00 (0.00-0.30) K/uL Abs Immat Gran (auto) 0.10 (0.00-0.30) K/uL Imm/Tot Granulo (auto) 2.7 % Sodium 135 (135-149) mmol/L Potassium 4.0 (3.6-5.1) mmol/L Chloride 102 (96-114) mmol/L Carbon Dioxide 21 (20-32) mmol/L Anion Gap 12 (7-15) mEq/L BUN 34 H (7-30) mg/dL Creatinine 1.7 H (0.5-1.5) mg/dL Estimated Creat Clear 40.43 Estimated GFR 43 ml/min Glucose 133 H (60-115) mg/dL Lactate 0.6 (0.5-1.9) mmol/L Calcium 8.8 (8.4-10.6) mg/dL Total Bilirubin 0.4 (0.1-1.5) mg/dL Direct Bilirubin 0.2 (0.0-0.5) mg/dL AST 24 (12-35) U/L ALT 16 (4-50) U/L Alkaline Phosphatase 129 (40-150) U/L Total Protein 6.2 (6.0-8.3) g/dL Albumin 3.7 (3.3-5.0) g/dL Lab Acknowledgement Test Added Discharge Plan Discharge Clinical Impression: Small bowel obstruction, Abdominal pain, Immunosuppression Patient Disposition: [facility] Condition: Stable Prescriptions: No Action albuterol sulfate 90 mcg/actuation HFA aerosol inhaler 2 puff inhalation Q6H PRN aspirin [Adult Low Dose Aspirin] 81 mg tablet,delayed release (DR/EC) 81 mg PO QDAY atorvastatin 10 mg tablet 10 mg PO QDAY azelastine 137 mcg (0.1 %) aerosol,spray 1 spray intranasal BID Rx Instructions: administer into each nostril budesonide [Pulmicort] 0.25 mg/2 mL suspension for nebulization 0.5 mg inhalation QDAY coenzyme Q10 100 mg capsule 100 mg PO QDAY ipratropium bromide 21 mcg (0.03 %) spray,non-aerosol 2 spray intranasal BID Rx Instructions: administer into each nostril lamotrigine [Lamictal] 200 mg tablet 200 mg PO BID levothyroxine 25 mcg capsule 25 mcg PO QDAY loratadine 10 mg tablet 10 mg PO QDAY montelukast [Singulair] 10 mg tablet 10 mg PO QDAY mycophenolate mofetil [CellCept] 500 mg tablet 500 mg PO Q12H nifedipine [Procardia XL] 30 mg tablet extended release 24hr 30 mg PO QDAY prednisone 5 mg tablet 5 mg PO QDAY tacrolimus [Prograf] 0.5 mg capsule 1.5 mg PO Q12H torsemide 10 mg tablet 10 mg PO QAM trazodone 100 mg tablet 100 mg PO QDAY Trelegy Ellipta 200-62.5-25 mcg blister with device 1 inh inhalation QDAY voriconazole [Vfend] 200 mg tablet 200 mg PO Q12H Rx Instructions: administer on empty stomach, at least 1 hour before or after meal(s) carvedilol 25 mg tablet 25 mg PO BID ertapenem 1 gram recon soln Patient Comments: [NO ORIGINAL SIG] valganciclovir 450 mg tablet 450 mg PO DAILY sulfamethoxazole-trimethoprim 400-80 mg tablet 1 tab PO DAILY vancomycin 125 mg capsule PO DAILY pantoprazole 40 mg tablet,delayed release (DR/EC) 40 mg PO DAILY Stand Alone Forms: [place] [facility] Info Instructions
--- NOTE | 2025-05-08 01:54 | CRLHL7_ITS ---
For Patients: As a result of the Century Cures Act, medical imaging exams and procedure reports are released immediately into your electronic medical record. You may view this report before your referring provider. If you have questions, please contact your health care provider. INDICATION: Abdominal pain. TECHNIQUE: Abdomen 2 views. COMPARISON: CT chest, abdomen, and pelvis 04/21/2025. FINDINGS: Bowel: Multiple distended bowel loops with air-fluid levels in the left upper quadrant. The amount of colonic stool is within normal limits. Other: No sign of free air. Cholecystectomy clips, left abdomen embolization coils, and right lower quadrant ureteral stent, unchanged. Right hip arthroplasty. IMPRESSION: Multiple distended bowel loops with air-fluid levels in the left upper quadrant, likely representing small bowel obstruction. Dictated by Scott Romero MD @ 05/08/2025 2:41:23 AM (Electronically Signed)
[2025-05-08 02:21] LABS: Hematocrit* 24.7 % (37.0-53.0); Immature Granulocytes Abs Auto 0.10 K/uL (0.00-0.30); Immature Granulocytes Pct Auto 2.7 %; Mean Corpuscular HGB Conc 32 gm/dL (32-36); Mean Corpuscular Hemoglobin 33 pg (26-34); Mean Corpuscular Volume 104 fL (80-100); RDW Coefficient of Variation % 14.8 % (11.5-15.5); Red Blood Count* 2.37 m/uL (4.30-5.90); White Blood Count* 3.72 K/uL (4.50-11.00)
[2025-05-08 02:24] LABS: Chloride* 102 mmol/L (96-114); Potassium* 4.0 mmol/L (3.6-5.1); Sodium* 135 mmol/L (135-149)
[2025-05-08 02:27] LABS: Blood Urea Nitrogen* 34 mg/dL (7-30); Creatinine* 1.7 mg/dL (0.5-1.5); Est. Creatinine Clearance* 40.43; Estimated Glomerular Filt Rate 43 ml/min
[2025-05-08 02:28] LABS: Anion Gap 12 mEq/L (7-15); Calcium* 8.8 mg/dL (8.4-10.6); Carbon Dioxide* 21 mmol/L (20-32); Glucose* 133 mg/dL (60-115); Hemoglobin* 8.0 gm/dL (13.5-17.5); Lymphocytes Absolute Auto 0.60 K/uL (0.90-2.90); Slide Review Reflex No
--- NOTE | 2025-05-08 02:46 | CRLHL7_ITS ---
For Patients: As a result of the Century Cures Act, medical imaging exams and procedure reports are released immediately into your electronic medical record. You may view this report before your referring provider. If you have questions, please contact your health care provider. INDICATION: Abdominal pain. Concern for small bowel obstruction. TECHNIQUE: CT abdomen and pelvis without contrast. COMPARISON: Abdominal radiographs 05/08/2025, CT chest abdomen pelvis 04/21/2025. FINDINGS: Lower chest: Coronary artery calcifications. Mild cardiomegaly. Liver: Unremarkable. Gallbladder and bile ducts: Cholecystectomy. Pneumobilia is noted, new compared to prior exam. Pancreas: Redemonstrated lobulated lesions at the pancreatic head, body, and tail, incompletely assessed on this single phase examination. No peripancreatic inflammatory changes. No pancreatic ductal dilatation. Spleen: Unremarkable. Adrenal glands: Unremarkable. Kidneys: Atrophic [place] kidneys with grossly unchanged simple and hemorrhagic/proteinaceous cysts. Right lower quadrant transplant kidney with nephro ureteral stent. Grossly unchanged perinephric stranding/edema of the transplant kidney. No definite hydroureteronephrosis. GI tract: Multiple loops of fluid filled dilated small bowel are noted with transition to collapsed small bowel loops within the central abdomen/right lower quadrant. No pneumatosis. Vasculature: Swirling of mesenteric vasculature is present. Questionable minimal portal venous gas. No abdominal aortic aneurysm. There are atherosclerotic vascular calcifications. Lymph nodes: No suspicious lymphadenopathy. Peritoneum/Abdominal Wall: Right lateral abdominal wall hernia containing loops of unobstructed small bowel. Trace pelvic ascites. No pneumoperitoneum. Pelvis: Normal bladder. Unremarkable prostate and seminal vesicles. Bones: No acute abnormality. IMPRESSION: 1. Small-bowel obstruction with transition point noted within the central abdomen/right lower quadrant with regional swirling of mesenteric vasculature, suspicious for closed loop configuration/internal hernia. While foci of somewhat peripheral intrahepatic gas likely reflects extension of intrahepatic pneumobilia, tiny foci of portal venous gas are not definitively excluded. Correlate for developing bowel ischemia. 2. Intrahepatic and extrahepatic pneumobilia, new compared to prior examination. Correlate for recent biliary intervention versus ascending biliary tract infection. 3. Mild cardiomegaly. Please note that all CT scans at this facility use dose modulation, iterative reconstruction, and/or weight-based dosing when appropriate to reduce radiation dose to as low as reasonably achievable. Dictated by Philip Garduno MD @ 05/08/2025 3:25:26 AM (Electronically Signed)
[2025-05-08 03:58] LABS: Albumin* 3.7 g/dL (3.3-5.0)
[2025-05-08 04:01] LABS: Alanine Aminotransferase* 16 U/L (4-50); Alkaline Phosphatase* 129 U/L (40-150); Aspartate Amino Transferase* 24 U/L (12-35); Bilirubin Direct* 0.2 mg/dL (0.0-0.5); Bilirubin Total* 0.4 mg/dL (0.1-1.5); Total Protein* 6.2 g/dL (6.0-8.3)
[2025-05-08 04:08] LABS: Lactate* 0.6 mmol/L (0.5-1.9)
[2025-05-08 04:25] VITALS: BP 145/58; PULSE 59; RESP 18; TEMP 36.6; O2SAT 98
[2025-05-08 06:46] VITALS: BP 180/95; PULSE 64; RESP 17; TEMP 36.9; O2SAT 99
[2025-05-08 07:25] VITALS: BP 151/81; PULSE 69; RESP 20; TEMP 36.5; O2SAT 99
[2025-05-08] MEDS: ONDANSETRON 2 MG/ML inj 4 MG IVP (08:35)
--- NOTE | 2025-05-08 08:45 | ED.NURSE ---
Patient up to use the bathroom prior to transfer. Zofran IV also given as he had large emesis. Transports to [place] with [facility]. 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
== END 2025-05-08 08:49 | disposition short-term general hospital (02) ==
PROVIDERS: Emergency Provider Family Medicine; PCP Surgery
DX: K56.609 Unspecified intestinal obstruction, unspecified as to partial versus complete obstruction (principal); R10.30 Lower abdominal pain, unspecified; Z94.0 Kidney transplant status; Z95.828 Presence of other vascular implants and grafts; Z79.2 Long term (current) use of antibiotics
CPT/HCPCS: 36415; 74019; 74176; 80048; 80076; 83605; 85025; 96361; 96374; 99284; 99285; J2405; J7030

== ENCOUNTER 2025-05-08 08:25 | Outpatient (CLI) | payer MEDICARE, BC, SELFPAY | END 2025-05-08 08:26 | disposition home or self-care (01) | LOC: AMB 05-12 11:50 | PROVIDERS: PCP Surgery; Visit Provider Internal Medicine | DX: K56.609 Unspecified intestinal obstruction, unspecified as to partial versus complete obstruction (principal) | CPT/HCPCS: A0425; A0427 ==